=== PATIENT | female | born 1940 | race Caucasian/White ===

== ENCOUNTER 2017-04-20 07:57 | Inpatient (IN) | payer MEDICAID, OTHER ==
[~2017-04-20 07:57] MED LIST: ASPI325T PO; CARV3.125 PO; GABA300 PO; GLIM1 PO; LISI20 PO; METF500 PO; PERI8.6T PO; PRAV80 PO; WALKER ROLLING
--- NOTE | 2017-04-20 12:34 | RADRPT ---
EXAM DATE/TIME: 04/20/2017 09:13 [facility] COMPARISON: CHEST SINGLE AP, July 28, 2015, 7:31. INDICATIONS : Fall. MEDICAL HISTORY : None. SURGICAL HISTORY : None. ENCOUNTER: Initial ACUITY: 1 day PAIN SCORE: 7/10 LOCATION: Bilateral upper chest FINDINGS: A single view of the chest demonstrates chronic interstitial densities without evidence of mass, infi ltrate or effusion. The cardiomediastinal contours are unremarkable. Osseous structures are intact. Degenerative changes of the shoulders. CONCLUSION: Chronic interstitial densities. Benja Ramsey MD on April 20, 2017 at 9:23 Board Certified Radiologist. This report was verified electronically.
--- NOTE | 2017-04-20 12:34 | RADRPT ---
EXAM DATE/TIME: 04/20/2017 08:59 [facility] COMPARISON: CT BRAIN W/O CONTRAST, July 28, 2015, 8:09. INDICATIONS : Found on the ground.Headache. RADIATION DOSE: 56.35 CTDIvol (mGy) MEDICAL HISTORY : Hypertension. Cerebrovascular disease. Diabetes SURGICAL HISTORY : unknown ENCOUNTER: Initial ACUITY: 1 day PAIN SCALE: 4/10 LOCATION: cranial TECHNIQUE: Multiple contiguous axial images were obtained of the head. Using automated exposure control and adj ustment of the mA and/or kV according to patient size, radiation dose was kept as low as reasonably a chievable to obtain optimal diagnostic quality images. DICOM format image data is available electro nically for review and comparison. 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 The ventricles are normal for age. No evidence of mi dline shift, mass lesion, hemorrhage or acute infarction. No extra-axial fluid collections are seen. POSTERIOR FOSSA: The cerebellum is intact. The 4th ventricle is midline. The cerebellopontine angle is unremarkable. EXTRACRANIAL: The visualized portion of the orbits is intact. SKULL: The calvaria is intact. No evidence of skull fracture. CONCLUSION: 1. Remote infarcts. 2. No acute hemorrhage. Benja Ramsey MD on April 20, 2017 at 9:13 Board Certified Radiologist. This report was verified electronically.
--- NOTE | 2017-04-20 13:11 | RADRPT ---
EXAM DATE/TIME: 04/20/2017 10:36 [facility] COMPARISON: No previous studies available for comparison. INDICATIONS : Left hip pain, fell MEDICAL HISTORY : None. SURGICAL HISTORY : None. ENCOUNTER: Initial ACUITY: 1 day PAIN SCORE: 8/10 LOCATION: Left hip FINDINGS: Examination of the left hip was performed with AP Pelvis. Complete intertrochanteric fracture with mi ld displacement. Old fracture proximal femur. The acetabulum is grossly intact. 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 CONCLUSION: Mildly displaced intertrochanteric fracture. Benja Ramsey MD on April 20, 2017 at 10:58 Board Certified Radiologist. This report was verified electronically.
[2017-04-20 13:13] LABS: INTERNATIONAL NORMALIZED RATIO 1.1 RATIO; PROTHROMBIN TIME - PATIENT 11.9 SEC (9.8-11.6)
[2017-04-20 13:16] LABS: AUTOMATED NEUTROPHIL # 12.2 TH/MM3 (1.8-7.7); BASOPHIL % 0.3 % (0.0-2.0); HEMATOCRIT 36.6 % (35.0-46.0); HEMOGLOBIN 12.2 GM/DL (11.6-15.3); LYMPH % 9.4 % (9.0-44.0); LYMPHOCYTE # 1.4 TH/MM3 (1.0-4.8); MEAN CELL VOLUME 96.1 FL (80.0-100.0); MEAN CORPUSCULAR HEMOGLOBIN 32.1 PG (27.0-34.0); MEAN CORPUSCULAR HGB CONC 33.4 % (32.0-36.0); MEAN PLATELET VOLUME 9.8 FL (7.0-11.0); MONO % 6.2 % (0.0-8.0); MONOCYTE # 0.9 TH/MM3 (0-0.9); NEUT % 84.1 % (16.0-70.0); PLATELET COUNT 220 TH/MM3 (150-450); RED BLOOD COUNT 3.81 MIL/MM3 (4.00-5.30); WHITE BLOOD COUNT 14.5 TH/MM3 (4.0-11.0)
[2017-04-20 13:28] LABS: ALBUMIN 3.4 GM/DL (3.4-5.0); ALKALINE PHOSPHATASE 88 U/L (45-117); ALT (GPT) 21 U/L (10-53); AST (GOT) 18 U/L (15-37); BICARBONATE 19.2 MEQ/L (21.0-32.0); BLOOD UREA NITROGEN 27 MG/DL (7-18); CALCIUM 8.4 MG/DL (8.5-10.1); CHLORIDE 98 MEQ/L (98-107); CREATININE 1.03 MG/DL (0.50-1.00); GLOMERULAR FILTRATION RATE 52 ML/MIN (>89); SODIUM (NA) 130 MEQ/L (136-145); TOTAL BILIRUBIN ADULT 0.5 MG/DL (0.2-1.0); TOTAL PROTEIN 6.5 GM/DL (6.4-8.2); TROPONIN I 0.13 NG/ML (0.02-0.05)
[2017-04-20 13:29] LABS: GLUCOSE,RANDOM 559 MG/DL (74-106)
[2017-04-20] MEDS ORDERED: GLIM4TAB PO (13:38)
[2017-04-20] MEDS ORDERED: POTASSIUM CHLOR 20 MEQ PREMIX 100 ML ONE (13:50)
[2017-04-20 13:59] VITALS: BP 103/58; PULSE 77; RESP 16; O2SAT 100
--- NOTE | 2017-04-20 14:10 | HHI.HP ---
HPI Service Family Medicine Primary Care Physician Unknown Admission Diagnosis Diagnoses: Chief Complaint: fall International Travel<30 Days: No Contact w/Intl Traveler<30days: No History of Present Illness Patient is a 76-year-old female presents to the ED by EMS after she felt today. She only speaks Georgian, but is accompanied by daughter who translates. Daughter states that she found her mother on the floor this morning around 4 AM. States she was covered in feces and urine. Daughter states that she was confused and asking for lipstick. Daughter states that patient was doing fine yesterday. She does have spells of confusion, states she has found her outside naked with only a hat on. However, at baseline she is able to feed herself, bathe herself, walk around the house. She does have a history of falls however. Daughter states that she has been becoming more confused lately. Did have normal dinner last night. No recent illness or other symptoms. She states she is dizzy, otherwise, oriented today with some irrelevant speech. Denies any history of DKA in the past. Is not on any insulin. 6 glimepiride at home. Checks her blood sugars occasionally, does not record log. (Moisés Hanson MD, R2) Review of Systems ROS Limitations: Language Barrier Constitutional: COMPLAINS OF: Dizziness, DENIES: Fever, Weight loss, Chills Eyes: DENIES: Diplopia, Vision loss Ears, nose, mouth, throat: DENIES: Nasal discharge, Oral lesions Respiratory: DENIES: Cough, Wheezing, Shortness of breath Cardiovascular: DENIES: Chest pain, Syncope, Lower Extremity Edema Gastrointestinal: DENIES: Vomiting (Moisés Hanson MD, R2) Past Family Social History Past Medical History HTN DM CVA Past Surgical History Unknown Reported Medications Reported Meds & Active Scripts Active Reported Glimepiride 4 Mg Tab 4 Mg PO DAILY@1600 Take with breakfast or first main meal (Moisés Hanson MD, R2) Allergies: Coded Allergies: No Known Allergies (Unverified , 04/20/17) Active Ordered Medications Active Medications Acetaminophen (Tylenol) 650 mg Q6H PRN PO; Start 04/20/17 at 14:30 Dextrose (D50w (Vial) Inj) 50 ml Q10M PRN IV PUSH; Start 04/20/17 at 14:30 Dextrose/Sodium Chloride 1,000 ml @ 200 mls/hr Q5H IV; Start 04/20/17 at 14:30 Heparin Sodium (Porcine) (Heparin Inj) 5,000 units Q12HR SQ; Start 04/20/17 at 21:00 Insulin Human Regular (NovoLIN R INJ) 0.1 units/ Kg actual body weight BOLUS ONCE IV PUSH Last administered on 04/20/17 15:51; Admin Dose 100 UNITS; Start 04/20/17 at 14:30; Stop 04/20/17 at 14:31; Status DC Insulin Human Regular 100 units/ Sodium Chloride 100 ml @ 0 mls/hr TITRATE IV; Start 04/20/17 at 14:30 Miscellaneous Medication ([facility] Information) Mix all IV Medications in Nor... UNSCH .XX; Start 04/20/17 at 14:30 Ondansetron HCl (Zofran Inj) 4 mg Q6H PRN IV PUSH; Start 04/20/17 at 15:00 Potassium Chloride 100 ml @ 50 mls/hr Q2H PRN IV; Start 04/20/17 at 14:30 Potassium Chloride 100 ml @ 50 mls/hr Q2H PRN IV; Start 04/20/17 at 14:30 Potassium Chloride 100 ml @ 50 mls/hr Q2H PRN IV; Start 04/20/17 at 14:30 Potassium Chloride 100 ml @ 50 mls/hr Q2H PRN IV; Start 04/20/17 at 14:30 Potassium Chloride 100 ml @ 50 mls/hr Q2H PRN IV; Start 04/20/17 at 14:30 Potassium Chloride 100 ml @ 100 mls/hr Q1H PRN IV; Start 04/20/17 at 14:30 Potassium Chloride 100 ml @ 100 mls/hr Q1H PRN IV; Start 04/20/17 at 14:30 Potassium Chloride 100 ml @ 100 mls/hr Q1H PRN IV; Start 04/20/17 at 14:30 Potassium Chloride 100 ml @ As Directed STK-MED ONCE .ROUTE Last administered on 04/20/17 13:58; Admin Dose 50 MLS/HR; Start 04/20/17 at 13:50; Stop at 13:51; Status DC Sodium Bicarbonate (Sodium Bicarbonate 8.4% Inj) 50 meq STAT PRN IV; Start at 14:30 Sodium Bicarbonate (Sodium Bicarbonate 8.4% Inj) 100 meq STAT PRN IV; Start at 14:30 Sodium Chloride 1,000 ml @ 250 mls/hr Q4H IV; Start 04/20/17 at 14:30 Sodium Phosphate 15 mmol/Sodium Chloride 105 ml @ 25 mls/hr UNSCH PRN IV; Start 04/20/17 at 14:30 Family History History of heart disease in family Social History Never smoker No alcohol use Denies other drug use. Independent with dressing, bathing, eating; Occasional urinary incontinence (Moisés Hanson MD, R2) Physical Exam Vital Signs Vital Signs Date Time Temp Pulse Resp B/P (MAP) Pulse Ox O2 Delivery O2 Flow Rate FiO2 04/20/17 13:59 77 16 103/58 (73) 100 Nasal Cannula 2.00 Physical Exam GENERAL: This is a well-nourished, well-developed patient, in no apparent distress. SKIN: Various papules over chest and forte. HEAD: Atraumatic. Normocephalic. EYES: Pupils equal round and reactive. Extraocular motions intact. No scleral icterus. No injection or drainage. ENT: Nose without bleeding. Throat without erythema, tonsillar hypertrophy or exudate. Uvula midline. Airway patent. NECK: Trachea midline. No JVD or lymphadenopathy. CARDIOVASCULAR: Regular rate and rhythm without murmurs, gallops, or rubs. RESPIRATORY: Clear to auscultation. Breath sounds equal bilaterally. No wheezes , rales, or rhonchi. GASTROINTESTINAL: Abdomen soft, non-tender, nondistended. No hepato-splenomegaly , or palpable masses. No guarding. MUSCULOSKELETAL: Left hip deformity presents. Leg is shortened and externally rotated. Pulses intact. Sensation intact. NEUROLOGICAL: Awake and alert. Motor and sensory grossly within normal limits. Normal speech. Laboratory Laboratory Tests Test 04/20/17 08:33 04/20/17 10:10 White Blood Count 14.5 Red Blood Count 3.81 Hemoglobin 12.2 Hematocrit 36.6 Mean Corpuscular Volume 96.1 Mean Corpuscular Hemoglobin 32.1 Mean Corpuscular Hemoglobin Concent 33.4 Red Cell Distribution Width 13.0 Platelet Count 220 Mean Platelet Volume 9.8 Neutrophils (%) (Auto) 84.1 Lymphocytes (%) (Auto) 9.4 Monocytes (%) (Auto) 6.2 Eosinophils (%) (Auto) 0.0 Basophils (%) (Auto) 0.3 Neutrophils # (Auto) 12.2 Lymphocytes # (Auto) 1.4 Monocytes # (Auto) 0.9 Eosinophils # (Auto) 0.0 Basophils # (Auto) 0.0 CBC Comment DIFF FINAL Differential Comment Prothrombin Time 11.9 Prothromb Time International Ratio 1.1 Activated Partial Thromboplast Time 23.3 Blood Urea Nitrogen 27 Creatinine 1.03 Random Glucose 559 Total Protein 6.5 Albumin 3.4 Calcium Level 8.4 Alkaline Phosphatase 88 Aspartate Amino Transf (AST/SGOT) 18 Alanine Aminotransferase (ALT/SGPT) 21 Total Bilirubin 0.5 Sodium Level 130 Potassium Level 4.4 Chloride Level 98 Carbon Dioxide Level 19.2 Anion Gap 13 Estimat Glomerular Filtration Rate 52 Total Creatine Kinase 115 Troponin I 0.13 B-Hydroxybutyrate 3.34 Blood Gas Puncture Site IV Blood Gas Patient Temperature 98.6 Venous Blood pH 7.25 Venous Blood Partial Pressure CO2 53 Venous Blood Partial Pressure O2 22 Venous Blood HCO3 23 Venous Blood Oxygen Saturation 25 Venous Blood Oxygen Content 3.7 Venous Blood Base Excess -3.6 Oxygen Delivery Device ROOM AIR Blood Gas Inspired Oxygen 21 (Moisés Hanson MD, R2) Result Diagram: 04/20/1783204/20/17832 Caprini VTE Risk Assessment Caprini VTE Risk Assessment: Mod/High Risk (score >= 2) Caprini Risk Assessment Model Point Value = 1 Point Value = 2 Point Value = 3 Point Value = 5 Age 41-60 Minor surgery BMI > 25 kg/m2 Swollen legs Varicose veins or History of unexplained or recurrent spontaneous Oral contraceptives or hormone replacement Sepsis (< 1 month) Serious lung disease, including pneumonia (< 1 month) Abnormal pulmonary function Acute myocardial infarction Congestive heart failure (< 1 month) History of inflammatory bowel disease Medical patient at bed rest Age 61-74 Arthroscopic surgery Major open surgery (> 45 min) Laparoscopic surgery (> 45 min) Malignancy Confined to bed (> 72 hours) Immobilizing plaster cast Central venous access Age >= 75 History of VTE Family history of VTE Factor V Leiden Prothrombin [id number] Lupus anticoagulant Anticardiolipin antibodies Elevated serum homocysteine Heparin-induced thrombocytopenia Other congenital or acquired thrombophilia Stroke (< 1 month) Elective arthroplasty Hip, pelvis, or leg fracture Acute spinal cord injury (< 1 month) Prophylaxis Regimen Total Risk Factor Score Risk Level Prophylaxis Regimen 0-1 Low Early ambulation 2 Moderate Order ONE of the following: *Sequential Compression Device (SCD) *Heparin 5000 units SQ BID 3-4 Higher Order ONE of the following medications: *Heparin 5000 units SQ TID *Enoxaparin/Lovenox 40 mg SQ daily (WT < 150 kg, CrCl > 30 mL/min) *Enoxaparin/Lovenox 30 mg SQ daily (WT < 150 kg, CrCl > 10-29 mL/min) *Enoxaparin/Lovenox 30 mg SQ BID (WT < 150 kg, CrCl > 30 mL/min) AND/OR *Sequential Compression Device (SCD) 5 or more Highest Order ONE of the following medications: *Heparin 5000 units SQ TID (Preferred with Epidurals) *Enoxaparin/Lovenox 40 mg SQ daily (WT < 150 kg, CrCl > 30 mL/min) *Enoxaparin/Lovenox 30 mg SQ daily (WT < 150 kg, CrCl > 10-29 mL/min) *Enoxaparin/Lovenox 30 mg SQ BID (WT < 150 kg, CrCl > 30 mL/min) AND *Sequential Compression Device (SCD) (Moisés Hanson MD, R2) Assessment and Plan Assessment and Plan 76 y/o female with history of HTN, DM, CVA Code Status Full Discussed Condition With Dr. Braun (Moisés Hanson MD, R2) Attending Attestation THIS CASE WAS DISCUSSED WITH THE RESIDENT PHYSICIANS. I HAVE REVIEWED THE RECORD AND AGREE WITH THE ABOVE NOTE AND PLAN OF CARE WAS DISCUSSED. I HAVE AUTHORIZED THE ORDER FOR ADMISSION TO AN IN-PATIENT STATUS. (Pablo Simmons MD) Problem List: (1) DKA (diabetic ketoacidoses) ICD Codes: E13.10 - Other specified diabetes mellitus with ketoacidosis without coma Status: Acute Plan: Patient presents to the ED with glucose of 559. Beta hydroxybutyrate is elevated at 3.34. UA significant for glucose of 1000, 40 ketones. Sodium 130, potassium 4.4. Anion gap of 13. VBG shows pH of 7.25. Mild leukocytosis on exam up to 14.5. UA negative for infection. CXR negative. Hip fracture may be inciting event. Patient was given several boluses of normal saline in the ED, as well as started on insulin drip. -Admit to ICU -Continue insulin drip. -DKA protocol; will add IV glucose when sugars below 200. -Replace electrolytes as needed. -BMP every 6 hours. -Nothing by mouth -Once sugars normalize, gap closes, can tolerate PO: switch to SQ insulin -Regular accuchecks (2) Hip fracture ICD Codes: S72.009A - Fracture of unspecified part of neck of unspecified femur , initial encounter for closed fracture Status: Acute Plan: Patient found fallen on the ground. Hip deformity noticed on exam. Left leg shortened and externally rotated. Hips/pelvis x-ray shows complete intertrochanteric fracture with mild displacement. Old fracture of proximal femur. -Consult orthopedics-appreciate recs -Fluids as above -Tylenol, morphine PRN pain (3) Hypertension ICD Codes: I10 - Essential (primary) hypertension Status: Acute Plan: Blood pressure to normal limits on arrival. Daughter states the patient was on lisinopril in the past. Blood pressure trending in 100s/60s. -Continue fluids as above -Hold BP meds (4) Fluids, Electrolytes, and Nutrition Status: Acute Plan: Fluids: NS per DKA protocol Electrolyte: monitor, replace PRN Nutrition: NPO DVT ppx: Heparin q12H (Moisés Hanson MD, R2) Physician Certification 2 Midnight Certification Type: Admission for Inpatient Services Order for Inpatient Services The services are ordered in accordance with Medicare regulations or non- Medicare payer requirements, as applicable. In the case of services not specified as inpatient-only, they are appropriately provided as inpatient services in accordance with the 2-midnight benchmark. Estimated LOS (days): 3 days is the estimated time the patient will need to remain in the hospital, assuming treatment plan goals are met and no additional complications. Post-Hospital Plan: Home (Moisés Hanson MD, R2) Problem Qualifiers (1) DKA (diabetic ketoacidoses): Qualified Codes: E13.10 - Other specified diabetes mellitus with ketoacidosis without coma (2) Hip fracture: Qualified Codes: S72.002A - Fracture of unspecified part of neck of left femur , initial encounter for closed fracture (3) Hypertension: Qualified Codes: I10 - Essential (primary) hypertension Moisés Hanson MD, R2 Apr 20, 2017 14:10 Pablo Simmons MD Apr 21, 2017 15:02
--- NOTE | 2017-04-20 14:29 | PD ---
HPI Chief Complaint: Fall Time Seen by Provider: 13:43 Travel History International Travel<30 days: No Contact w/Intl Traveler<30days: No Traveled to known affect area: No History of Present Illness HPI Patient is a 76-year-old female brought in by EMS after she fell today. Per EMS she was found on the ground by the daughter. He is not known how she got there. EMS states she is covered in feces when they arrived. However, EMS does state that the rest the house seemed clean. Patient has history of diabetes, her sugar is found to be high by EMS. She is also found to have a deformed hip. Patient speaks Austrian and has history of dementia, she is unable to provide any history. [facility] Past Medical History Cancer: No Chemotherapy: No Cerebrovascular Accident: Yes Diabetes: Yes Diminished Hearing: No Immune Disorder: No Radiation Therapy: No Sickle Cell Disease: No : 1 Para: 1 Past Surgical History AICD: No Arteriovenous Shunt: No Insulin Pump: No Joint Replacement: No Pacemaker: No Social History Alcohol Use: No Tobacco Use: No Substance Use: No Allergies-Medications (Allergen,Severity, Reaction): Coded Allergies: No Known Allergies (Unverified , 04/20/17) Reported Meds & Prescriptions Reported Meds & Active Scripts Active Reported Glimepiride 4 Mg Tab 4 Mg PO DAILY@1600 Take with breakfast or first main meal Review of Systems ROS Limitations: Altered Mental Status Physical Exam Narrative GENERAL: Awake and alert, in no acute distress. SKIN: Focused skin assessment warm/dry. No open wounds. HEAD: Atraumatic. Normocephalic. EYES: Pupils equal and round. No scleral icterus. Extraocular movements intact. ENT: Mucous membranes pink and moist. NECK: Trachea midline. No JVD. CARDIOVASCULAR: Regular rate and rhythm. No murmur appreciated. RESPIRATORY: No accessory muscle use. Clear to auscultation. Breath sounds equal bilaterally. GASTROINTESTINAL: Abdomen soft, non-tender, nondistended. MUSCULOSKELETAL: Obvious deformity of the left hip. Left leg is shortened and rotated. Pedal pulses intact. NEUROLOGICAL: Awake and alert. No obvious cranial nerve deficits. Motor grossly within normal limits. Data Data Orders Orders Chest, Single Ap (04/20/17 08:40) Ct Brain W/O Iv Contrast(Rout) (04/20/17 08:40) Labs Laboratory Tests Test 04/20/17 08:33 8/20/17 10:10 White Blood Count 14.5 TH/MM3 Red Blood Count 3.81 MIL/MM3 Hemoglobin 12.2 GM/DL Hematocrit 36.6 % Mean Corpuscular Volume 96.1 FL Mean Corpuscular Hemoglobin 32.1 PG Mean Corpuscular Hemoglobin Concent 33.4 % Red Cell Distribution Width 13.0 % Platelet Count 220 TH/MM3 Mean Platelet Volume 9.8 FL Neutrophils (%) (Auto) 84.1 % Lymphocytes (%) (Auto) 9.4 % Monocytes (%) (Auto) 6.2 % Eosinophils (%) (Auto) 0.0 % Basophils (%) (Auto) 0.3 % Neutrophils # (Auto) 12.2 TH/MM3 Lymphocytes # (Auto) 1.4 TH/MM3 Monocytes # (Auto) 0.9 TH/MM3 Eosinophils # (Auto) 0.0 TH/MM3 Basophils # (Auto) 0.0 TH/MM3 CBC Comment DIFF FINAL Differential Comment Prothrombin Time 11.9 SEC Prothromb Time International Ratio 1.1 RATIO Activated Partial Thromboplast Time 23.3 SEC Blood Urea Nitrogen 27 MG/DL Creatinine 1.03 MG/DL Random Glucose 559 MG/DL Total Protein 6.5 GM/DL Albumin 3.4 GM/DL Calcium Level 8.4 MG/DL Alkaline Phosphatase 88 U/L Aspartate Amino Transf (AST/SGOT) 18 U/L Alanine Aminotransferase (ALT/SGPT) 21 U/L Total Bilirubin 0.5 MG/DL Sodium Level 130 MEQ/L Potassium Level 4.4 MEQ/L Chloride Level 98 MEQ/L Carbon Dioxide Level 19.2 MEQ/L Anion Gap 13 MEQ/L Estimat Glomerular Filtration Rate 52 ML/MIN Total Creatine Kinase 115 U/L Troponin I 0.13 NG/ML B-Hydroxybutyrate 3.34 MMOL/L Blood Gas Puncture Site IV Blood Gas Patient Temperature 98.6 Venous Blood pH 7.25 Venous Blood Partial Pressure CO2 53 mmHg Venous Blood Partial Pressure O2 22 mmHg Venous Blood HCO3 23 mmol/L Venous Blood Oxygen Saturation 25 % Venous Blood Oxygen Content 3.7 Vol % Venous Blood Base Excess -3.6 mmol/L Oxygen Delivery Device ROOM AIR Blood Gas Inspired Oxygen 21 % [facility] Medical Decision Making Medical Screen Exam Complete: Yes Emergency Medical Condition: Yes Medical Record Reviewed: Yes Interpretation(s) ECG shows normal sinus rhythm at 93, no ST elevation or depression, normal intervals. Differential Diagnosis DKA versus HHS versus hip fracture versus hip dislocation versus ICH Narrative Course Patient is a 76-year-old female who comes in after she was found on the ground. Exam shows an obvious deformity of the left hip. IV established and labs sent. Patient given IV fluids. Patient received 10 mg of morphine by EMS prior to arrival, and is currently not in any pain. Labs show a blood sugar over 500, beta hydroxybutyrate is positive. PH is 7.25. Liters of IV fluids. She was started on insulin drip per DKA protocol. She'll be admitted to the ICU for further management. X-ray of her hip does show a fracture. Dr. Bee of orthopedics was consulted. Critical Care Narrative Aggregate critical care time was 35 minutes. Time to perform other separately billable procedures was not included in the critical care time. My time did not include minutes spent treating any other patients simultaneously or on activities that did not directly contribute to the patient's treatment. The services I provided to this patient were to treat and/or prevent clinically significant deterioration that could result in: Serious illness or I provided critical care services requiring my management, as noted below: Chart data review, documentation time, medication orders and management, vital sign assessments/reviewing monitor data, ordering and reviewing lab tests, ordering and interpreting/reviewing x-rays and diagnostic studies, care of the patient and discussion of the patient with the admitting physicians. Diagnosis Primary Impression: DKA (diabetic ketoacidoses) Qualified Codes: E13.10 - Other specified diabetes mellitus with ketoacidosis without coma Additional Impression: Hip fracture Qualified Codes: S72.002A - Fracture of unspecified part of neck of left femur , initial encounter for closed fracture Admitting Information Admitting Physician Requests: Admit Estefany Griggs MD Apr 20, 2017 14:29
[2017-04-20] MEDS ORDERED: SODIUM BICARBONATE 8.4% 50 MEQ IV PRN (14:30)
[2017-04-20] MEDS ORDERED: DEXTROSE 50% IN WATER 50 ML VIAL(D50) IV PUSH PRN (14:30)
[2017-04-20] MEDS ORDERED: POTASSIUM CL 20 MEQ IV PREMIX 100 ML - PERIPHERAL - for K+ 3.5 to 4.4 IV PRN (14:30)
[2017-04-20] MEDS ORDERED: NS IV @ 250 MLS/HR IV SCH (14:30)
[2017-04-20] MEDS ORDERED: POTASSIUM CL 40 MEQ IV PREMIX 100 ML - CENTRAL LINE - SUBSEQUENT K+ < 3.5 IV PRN (14:30)
[2017-04-20] MEDS ORDERED: POTASSIUM CL 20 MEQ IV PREMIX 100 ML - CENTRAL LINE - for K+ 3.5 to 4.4 IV PRN (14:30)
[2017-04-20] MEDS ORDERED: POTASSIUM CL 40 MEQ IV PREMIX 100 ML - CENTRAL LINE - for K+ < 3.5 IV PRN (14:30)
[2017-04-20] MEDS ORDERED: POTASSIUM CL 20 MEQ IV PREMIX 100 ML - CENTRAL LINE - for K+ 4.5 to 5 IV PRN (14:30)
[2017-04-20] MEDS ORDERED: INSULIN HUMAN (NovoLIN) REGULAR Bolus IV PUSH ONE (14:30)
[2017-04-20] MEDS ORDERED: POTASSIUM CL 20 MEQ IV PREMIX 100 ML - PERIPHERAL LINE - for K+ < 3.5 IV PRN (14:30)
[2017-04-20] MEDS ORDERED: SODIUM PHOSPHATE 15 MMOL/NS 100 ML IV PRN ×2 (14:30)
[2017-04-20] MEDS ORDERED: SODIUM BICARBONATE 8.4% 100 MEQ IV PRN (14:30)
[2017-04-20] MEDS ORDERED: POTASSIUM CL 20 MEQ IV PREMIX 100 ML - PERIPHERAL - for K+ 4.5 to 5 IV PRN (14:30)
[2017-04-20] MEDS ORDERED: POTASSIUM CL 20 MEQ IV PREMIX 100 ML - PERIPHERAL - SUBSEQUENT K+ < 3.5 IV PRN (14:30)
[2017-04-20] MEDS ORDERED: INSULIN REGULAR 100 UNITS/NS 100 ML (DKA Protocol) IV SCH ×2 (14:30)
[2017-04-20] MEDS ORDERED: Mix all IV Medications in Normal Saline When Possible SCH (14:30)
[2017-04-20] MEDS ORDERED: D5 NS IV @ 200 MLS/HR - Start after Glucose less than 250 IV SCH (14:30)
[2017-04-20] MEDS ORDERED: ONDANSETRON HCL 4 MG/2 ML VIAL IV PUSH PRN (15:00)
[2017-04-20 15:03] LABS: URINE COLOR YELLOW (YELLW/STRAW)
[2017-04-20 15:04] LABS: GLUCOSE,URINE 1000 mg/dL (NEG); KETONE, URINE 40 mg/dL (NEG); PH, URINE 6.5 (5.0-8.5)
[2017-04-20 15:12] LABS: BILIRUBIN, URINE NEG (NEG); BLOOD, URINE SMALL (NEG); NITRITE,URINE NEG (NEG); URINE LEUKOCYTE ESTERASE NEGATIVE (NEG)
[2017-04-20 15:13] LABS: BACTERIA, URINE RARE /hpf
--- NOTE | 2017-04-20 16:10 | EKG ---
Date Performed: 04/20/2017 Time Performed: 08:10:50 PTAGE: 76 years EKG: Sinus rhythm NONSPECIFIC ST & T-WAVE ABNORMALITY Compared to previous tracing, there's improvement in the R force s anteriorly. There are no longer criteria findings of inferior wall Myocardial infarction. Previous tracing was suggestive of anterior wall Myocardial infarction of undetermined age, but these criteria are no longer met ABNORMAL ECG PREVIOUS TRACING : 07/28/2015 07.49 DOCTOR: Jl Louis Interpretating Date/Time 04/20/2017 16:09:59
[2017-04-20] MEDS ORDERED: NALOXONE HCL 0.4 MG/ML AMP IV PRN (17:15)
[2017-04-20] MEDS: MORPHINE SULFATE 4 MG/ML INJ IV PRN (17:41)
[2017-04-20 18:00] VITALS: PULSE 86
[2017-04-20 19:06] LABS: BICARBONATE 23.5 MEQ/L (21.0-32.0); CALCIUM 7.7 MG/DL (8.5-10.1); CREATININE 0.65 MG/DL (0.50-1.00); MAGNESIUM 1.9 MG/DL (1.5-2.5)
[2017-04-20 19:10] LABS: TROPONIN I 0.28 NG/ML (0.02-0.05)
[2017-04-20 20:00] VITALS: PULSE 74
[2017-04-20 20:18] VITALS: O2SAT 100
--- NOTE | 2017-04-20 20:27 | EKG ---
Date Performed: 04/20/2017 Time Performed: 17:24:34 PTAGE: 76 years EKG: Sinus rhythm ST/T-WAVE ABNORMALITY, CONSIDER LATERAL ISCHEMIA POSSIBLE PROLONGED QT INTERVAL ABNORMAL ECG PREVIOUS TRACING : 04/20/2017 08.10 No significant change from previous tracing noted. DOCTOR: Hamilton Bruner Interpretating Date/Time 04/20/2017 20:26:11
[2017-04-20] MEDS ORDERED: BISACODYL 10 MG SUPP RECTAL PRN (20:30)
[2017-04-20] MEDS ORDERED: MAGNESIUM HYDROXIDE SUSP 30 ML CUP PO PRN (20:30)
[2017-04-20] MEDS ORDERED: LACTULOSE SYRUP 20 GM/30 ML CUP PO PRN (20:30)
[2017-04-20] MEDS ORDERED: SENNOSIDES 8.6 MG TAB PO PRN (20:30)
[2017-04-20] MEDS: DOCUSATE SODIUM 50 MG/SENNA 8.6 MG TAB PO SCH (21:00)
[2017-04-20] MEDS: HEPARIN SODIUM - SQ 10,000 UNITS/ML VIAL SQ SCH (21:00)
--- NOTE | 2017-04-20 21:35 | EKG ---
Date Performed: 04/20/2017 Time Performed: 20:13:18 PTAGE: 76 years EKG: Sinus rhythm PROLONGED QT INTERVAL ABNORMAL ECG PREVIOUS TRACING : 04/20/2017 17.24 No significant change from previous tracing noted. DOCTOR: Hamilton Bruner Interpretating Date/Time 04/20/2017 21:34:27
[2017-04-20] MEDS ORDERED: GLUCAGON 1 MG/ML VIAL OTHER PRN (21:45)
[2017-04-20] MEDS ORDERED: DEXTROSE 50% IN WATER 50 ML VIAL(D50) IV PRN (21:45)
[2017-04-20 22:00] VITALS: PULSE 75
[2017-04-20 23:50] LABS: BICARBONATE 23.6 MEQ/L (21.0-32.0); CALCIUM 7.6 MG/DL (8.5-10.1); CREATININE 0.51 MG/DL (0.50-1.00); MAGNESIUM 1.9 MG/DL (1.5-2.5); PHOSPHORUS 1.9 MG/DL (2.5-4.9)
[2017-04-20 23:53] LABS: TROPONIN I 0.37 NG/ML (0.02-0.05)
[2017-04-21] VITALS (26 sets, daily range): BP systolic 113–139; BP diastolic 56–77; PULSE 74–137; RESP 10–28; TEMP 97.9–100; O2SAT 89–100
[2017-04-21 05:36] LABS: HEMATOCRIT 30.9 % (35.0-46.0); HEMOGLOBIN 10.2 GM/DL (11.6-15.3); MEAN CELL VOLUME 95.4 FL (80.0-100.0); MEAN CORPUSCULAR HEMOGLOBIN 31.4 PG (27.0-34.0); MEAN CORPUSCULAR HGB CONC 32.9 % (32.0-36.0); MEAN PLATELET VOLUME 8.5 FL (7.0-11.0); PLATELET COUNT 231 TH/MM3 (150-450); RED BLOOD COUNT 3.24 MIL/MM3 (4.00-5.30); RED CELL DISTRIBUTION WIDTH 13.2 % (11.6-17.2); WHITE BLOOD COUNT 11.3 TH/MM3 (4.0-11.0)
[2017-04-21] MEDS: MORPHINE SULFATE 4 MG/ML INJ IV PRN ×3 (06:04→21:59)
[2017-04-21 06:09] LABS: BICARBONATE 23.2 MEQ/L (21.0-32.0); CALCIUM 7.8 MG/DL (8.5-10.1); CREATININE 0.51 MG/DL (0.50-1.00); MAGNESIUM 1.9 MG/DL (1.5-2.5)
[2017-04-21 06:10] LABS: PHOSPHORUS 1.5 MG/DL (2.5-4.9)
[2017-04-21] MEDS: INSULIN ASPART SUPPLEMENTAL SCALE SQ SCH ×5 (06:11→21:00)
[2017-04-21] MEDS ORDERED: CALCIUM CARBONATE 1.25 GM (CA 500 MG) TAB PO ONE (07:00)
[2017-04-21] MEDS ORDERED: SODIUM PHOSPHATE INJ 15 MMOL in SODIUM CHLORIDE 0.9% INJ 150 ML IV ONE (07:00)
--- NOTE | 2017-04-21 07:17 | PD.ORT.PN ---
Subjective Subjective Remarks Patient seen and examined. Patient admitted for DKA left hip intertrochanteric fracture. Patient is currently awake. She does not speak fluent Pashto. Complains of left hip pain Objective Vitals Vital Signs Date Time Temp Pulse Resp B/P (MAP) Pulse Ox O2 Delivery O2 Flow Rate FiO2 04/21/17 06:09 22 04/21/17 02:00 80 04/21/17 00:00 74 04/20/17 22:00 75 04/20/17 20:18 100 Nasal Cannula 4.00 04/20/17 20:00 74 04/20/17 18:00 86 04/20/17 16:40 04/20/17 13:59 77 16 103/58 (73) 100 Nasal Cannula 2.00 Result Diagram: 04/21/17 0450 04/21/17 0450 Other Results Laboratory Tests Test 04/20/17 08:33 Prothromb Time International Ratio 1.1 RATIO Prothrombin Time 11.9 SEC (9.8-11.6) Imaging Last [address] 04/20/17 0840 Signed Impressions: Service Date/Time: Thursday, April 20, 2017 08:59 - CONCLUSION: 1. Remote infarcts. 2. No acute hemorrhage. Benja Ramsey MD Chest X-Ray 04/20/17 0840 Signed Impressions: Service Date/Time: Thursday, April 20, 2017 09:13 - CONCLUSION: Chronic interstitial densities. Benja Ramsey MD Objective Remarks Patient is in no acute distress. She is awake. No pain in bilateral arms or right leg. She does have significant pain with left hip motion. No pain around left knee or ankle. Assessment & Plan Assessment and Plan Continue medical management of diabetes Nothing by mouth Plan on surgery this morning if medically cleared for treatment of left hip fracture Irwin Cedeno MD Apr 21, 2017 07:17
--- NOTE | 2017-04-21 07:40 | MB ---
cc: MARANDA ALVAREZ DATE OF ADMISSION 04/20/2017 DATE OF CONSULTATION 04/21/2017 REASON FOR CONSULTATION Left hip intertrochanteric fracture. CONSULTING PHYSICIAN Dr. Pablo Simmons PAUL Huynh is a 76-year-old female who had a fall today. She speaks Russian but she has a daughter who can translate. Her daughter found her mother on the floor at approximately 04:00 a.m. The patient was confused. She does have a history of falls. She presented to the emergency room where she was found to have a left hip intertrochanteric fracture. She was also found to have an diabetic ketoacidosis. She is currently awake in the Intensive Care Unit. PAST MEDICAL HISTORY ILLNESSES 1. Hypertension. 2. Diabetes. 3. CVA. SURGERIES Unknown. MEDICATIONS Glimepiride. ALLERGIES No known drug allergies. SOCIAL HISTORY The patient denies alcohol, tobacco or drug use. She is relatively independent in her activities of the living. FAMILY HISTORY Positive for heart disease. REVIEW OF SYSTEMS Unobtainable. PHYSICAL EXAMINATION GENERAL: The patient is a thin, 76-year female in no acute distress. She is awake. VITAL SIGNS: Pulse 86, respirations 16, blood pressure 103/58, O2 sats 1%, FIO2 2 liters. HEAD: The patient is normocephalic. Pupils are equal. NECK: Soft, nontender. Trachea is midline. ABDOMEN: Soft, nontender, nondistended. EXTREMITIES: Examination of bilateral upper extremities reveals no pain with shoulder, elbow or wrist motion bilaterally. Sensation is intact in all fingers. Radial pulses palpable bilaterally. SKIN: Intact in both hands. EXTREMITIES: Examination of right leg reveals no pain with hip, knee or ankle motion. Skin is intact. Dorsalis pedis pulses palpable. Examination of the left leg reveals pain with any hip motion. He has no tenderness around the knee, tibia or ankle. Skin is intact. Dorsalis pedis pulses palpable. X-RAYS X-rays of the left hip were reviewed. X-rays reveal a displaced left hip intertrochanteric fracture. IMPRESSION 1. Diabetes 2. Hypertension 3. Left hip intertrochanteric fracture. PLAN The treatment options were discussed with the patient. I also attempted to contact the patient's daughter to help translate and obtain consent. At this point I would recommend left hip reduction and intramedullary nail fixation. The risks of surgery include bleeding, infection, injury to arteries, nerves, blood vessels, painful hardware as well as medical complications including blood clot, stroke, heart attack and . I will plan on surgery today if she is medically cleared. A mid-level provider in my office, nurse practitioner or PA, may see this patient on a follow-up basis and continue to implement the objective of this plan including: Starting or adjusting medications, injections of muscle, tendon, bursa or joints, cast application, orthotic or brace application, physical therapy, further radiographic studies including x-ray, MRI, CT, ultrasounds or bone scan, vascular studies, neurologic studies, or other specialist consultations, and proceeding with surgical management as appropriate. MD DENY Henyr/ROXANA /7:18 AM /7:29 AM
--- NOTE | 2017-04-21 08:13 | HHI.FPPN ---
Subjective Remarks FM Attending Note: Patient seen and examined. S: Chart and all resident physician notes reviewed. In summary this is a 76 year old female who was admitted with an admission diagnosis of Dka, L Hip Fracture. This patient speaks only [place] making communication difficult when her daughter is not present to translate. She also has a baseline dementia. According to the history the patient was found on the floor on the morning of admission approximately 4 AM. The patient was covered with urine and feces and confused but does have baseline confusion. The patient is relatively independent in her basic ADLs when she has her daughter to supervise. She does live with her daughter who enables her to meet her instrumental activities of daily living. This patient does have diabetes. On her evaluation in the emergency room she was found to have left hip fracture. This morning an attempt was made to talk with the patient using a computer-assisted interpreter and translator but this was of limited use due to her baseline dementia. She did not appear to know where she was or know the year. When admitted the patient did have signs of mild diabetic ketoacidosis which have resolved overnight with treatment. She has been seen by orthopedic surgery with the intent on having an open reduction and internal fixation of her hip fracture. Objective Vitals Vital Signs Date Time Temp Pulse Resp B/P (MAP) Pulse Ox O2 Delivery O2 Flow Rate FiO2 04/21/17 08:07 94 21 04/21/17 06:09 22 04/21/17 06:00 84 04/21/17 04:00 88 04/21/17 02:00 80 04/21/17 00:00 74 04/20/17 22:00 75 04/20/17 20:18 100 Nasal Cannula 4.00 04/20/17 20:00 74 04/20/17 18:00 86 04/20/17 16:40 04/20/17 13:59 77 16 103/58 (73) 100 Nasal Cannula 2.00 Result Diagram: 04/21/17 0450 04/21/17 0450 Other Results Item Value Date Time Magnesium Level 1.9 MG/DL 04/20/17 1827 Total Bilirubin 0.5 MG/DL 04/20/17 0833 Aspartate Amino Transf (AST/SGOT) 18 U/L 04/20/17 0833 Alanine Aminotransferase (ALT/SGPT) 21 U/L 04/20/17 0833 Alkaline Phosphatase 88 U/L 04/20/17 0833 Total Creatine Kinase 115 U/L 04/20/17 0833 Troponin I 0.13 NG/ML H 04/20/17 0833 Troponin I 0.28 NG/ML H # 04/20/17 1827 Troponin I 0.37 NG/ML H 04/20/17 2317 B-Hydroxybutyrate 3.34 MMOL/L H 04/20/17 0833 Venous Blood pH 7.25 *L 04/20/17 1010 Venous Blood Partial Pressure CO2 53 mmHg H 04/20/17 1010 Venous Blood Partial Pressure O2 22 mmHg *L 04/20/17 1010 Venous Blood HCO3 23 mmol/L 04/20/17 1010 Oxygen Delivery Device ROOM AIR 04/20/17 1010 Urine Specific [place] 1.031 04/20/17 08 Urine Glucose (UA) 1000 mg/dL H 04/20/17 0833 Urine Ketones 40 mg/dL H 04/20/17 0833 Urine Occult Blood SMALL H 04/20/17 0833 Urine Nitrite NEG 04/20/17 0833 Urine Urobilinogen LESS THAN 2.0 MG/DL 04/20/17 0833 Urine Leukocyte Esterase NEGATIVE 04/20/17 0833 Urine RBC 7 /hpf H 04/20/17 0833 Urine WBC 7 /hpf H 04/20/17 0833 Nasal Screen MRSA (PCR) MRSA NOT DETECTED 04/20/17 1625 Prothrombin Time 11.9 SEC H 04/20/17 0833 Activated Partial Thromboplast Time 23.3 SEC L 04/20/17 0833 Imaging Last [address] 04/20/17 0840 Signed Impressions: Service Date/Time: Thursday, April 20, 2017 08:59 - CONCLUSION: 1. Remote infarcts. 2. No acute hemorrhage. Benja Ramsey MD Chest X-Ray 04/20/17 0840 Signed Impressions: Service Date/Time: Thursday, April 20, 2017 09:13 - CONCLUSION: Chronic interstitial densities. Benja Ramsey MD Objective Remarks O. CONSTITUTIONAL/GEN: normally nourished, in NAD. EYES: conjunctiva normal, PERRLA, EOMI. ENT: Mouth and pharynx normal. NECK: thyroid midline, carotids symmetrical. LUNGS: clear A-P, respiratory effort is normal. CARDIOVASCULAR: RR without murmur or gallop. No significant edema. GI/ABD: soft without masses, without organomegaly. : moser catheter in place NEURO: No focal deficits. SKIN: color normal, no rashes noted. HEME/LYMPH: no bruising, petechia or significant adenopathy MUSC: back is normal in appearance. Extremities are normal in appearance. PSYCH/MENTAL STATUS: Alert and oriented x 1 (disoriented to time and place). A/P Assessment and Plan 76 y/o female with history of HTN, DM, CVA Problem List: (1) DKA (diabetic ketoacidoses) ICD Codes: E13.10 - Other specified diabetes mellitus with ketoacidosis without coma Status: Acute Plan: Patient presents to the ED with glucose of 559. Beta hydroxybutyrate is elevated at 3.34. UA significant for glucose of 1000, 40 ketones. Sodium 130, potassium 4.4. Anion gap of 13. VBG shows pH of 7.25. Mild leukocytosis on exam up to 14.5. UA negative for infection. CXR negative. Hip fracture may be inciting event. Patient was given several boluses of normal saline in the ED, as well as started on insulin drip. -Admit to ICU -Continue insulin drip. -DKA protocol; will add IV glucose when sugars below 200. -Replace electrolytes as needed. -BMP every 6 hours. -Nothing by mouth -Once sugars normalize, gap closes, can tolerate PO: switch to SQ insulin -Regular accuchecks 04/21/17 Overnight the acute findings of diabetic ketoacidosis have resolved. IV hydration will continue. The patient is nothing by mouth for planned surgery. We'll cover her insulin needs a sliding scale insulin. (2) Hip fracture ICD Codes: S72.009A - Fracture of unspecified part of neck of unspecified femur , initial encounter for closed fracture Status: Acute Plan: Patient found fallen on the ground. Hip deformity noticed on exam. Left leg shortened and externally rotated. Hips/pelvis x-ray shows complete intertrochanteric fracture with mild displacement. Old fracture of proximal femur. -Consult orthopedics-appreciate recs -Fluids as above -Tylenol, morphine PRN pain 04/21/17 Operative repair plan. (3) Hypertension ICD Codes: I10 - Essential (primary) hypertension Status: Acute Plan: Blood pressure to normal limits on arrival. Daughter states the patient was on lisinopril in the past. Blood pressure trending in 100s/60s. -Continue fluids as above -Hold BP meds (4) Fluids, Electrolytes, and Nutrition Status: Acute Plan: Fluids: NS per DKA protocol Electrolyte: monitor, replace PRN Nutrition: NPO DVT ppx: Heparin q12H Problem Qualifiers (1) DKA (diabetic ketoacidoses): Qualified Codes: E13.10 - Other specified diabetes mellitus with ketoacidosis without coma (2) Hip fracture: Qualified Codes: S72.002A - Fracture of unspecified part of neck of left femur , initial encounter for closed fracture (3) Hypertension: Qualified Codes: I10 - Essential (primary) hypertension Pablo Simmons MD Apr 21, 2017 08:13
[2017-04-21] MEDS: HEPARIN SODIUM - SQ 10,000 UNITS/ML VIAL SQ SCH (09:00)
[2017-04-21] MEDS: DOCUSATE SODIUM 50 MG/SENNA 8.6 MG TAB PO SCH ×2 (09:00→21:00)
[2017-04-21] MEDS ORDERED: SODIUM CHLOR 0.9% 1000 ML INJ 1,000 ML IV SCH (09:03)
[2017-04-21] MEDS: SODIUM CHLOR 0.9% 1000 ML INJ 1,000 ML IV SCH ×2 (09:14→17:34)
--- NOTE | 2017-04-21 10:28 | OTSOAPIP ---
TIME SESSION COMPLETED: 1000 TREATMENT TIME: 0 MINS. CHART REVIEWED. INTERDISCIPLINARY COMMUNICATION: PATIENT WAS NOT AVAILABLE DUE TO HAVING HIP SURGERY. PLAN: WILL SEE PATIENT NEXT TREATMENT DAY Therapist: KASIA RECIO/Yandy Signature on file
[2017-04-21] MEDS ORDERED: ceFAZolin INJ 1,000 MG VIAL ONE (10:30)
[2017-04-21] MEDS ORDERED: GENTAMICIN SULFATE 80 MG/2 ML VIAL ONE (10:30)
[2017-04-21] MEDS ORDERED: VANCOMYCIN HCL 1000 MG VIAL ONE (10:40)
[2017-04-21] MEDS ORDERED: BUPIVACAINE/EPINEPHRINE 0.25% 50 ML VIAL ONE (11:39)
[2017-04-21] MEDS ORDERED: diphenhydrAMINE HCL 25 MG CAP PO PRN (11:45)
[2017-04-21] MEDS ORDERED: SODIUM CHLORIDE 0.9% FLUSH 5 ML FLUSH IVF PRN (11:45)
--- NOTE | 2017-04-21 11:46 | PD.OP ---
cc: Irwin López MD Operative Report Date of Surgery: Apr 21, 2017 Preoperative Diagnosis: Displaced left hip intertrochanteric fracture Postoperative Diagnosis: Procedure: Left hip reduction and intramedullary nail fixation Anesthesia: Gen. Surgeon: Irwin López Firer Watertender(s): Bennett Teixeira PA-C The surgical procedure was assisted by my physician fws faculty assistant. My P.A. presence was necessary throughout this case for the manipulation and positioning of the surgical extremity. My P.A. was assisting me throughout the duration of this procedure. The skill set of a physician fws faculty assistant was medically necessary to complete this procedure. During the surgical case the pump house technician was working at the back table and the physician fws faculty assistant was directly assisting me. Operation and Findings: Implants used: [9]mm x [320]mm Synthes TFNA troch nail Plan of activity: Weight-bear as tolerated Patient was seen and evaluated preoperatively. The patient has significant hip pain from left proximal femur fracture. The risk and benefits of surgery were discussed in depth with the patient to include bleeding, infection, nonunion, malunion, need for hip replacement, painful hardware, as well as medical competitions including blood clots, stroke, heart attack, and . Informed consent was obtained. Operative site was marked. Patient was brought to the operating room and placed on fracture table. IV sedation was administered by anesthesiologist. Timeout procedure was performed. Hip and leg were prepped with alcohol followed by DuraPrep and draped in the usual sterile fashion. IV antibiotics were given prior to incision. Procedure began with reduction of fracture. Traction was applied. The leg was manipulated to achieve reduction. Excellent reduction was achieved. Fluoroscopy was used to confirm reduction. A three inch incision was made proximal to the trochanter. Subcutaneous tissue was dissected bluntly. Guidepin was placed at the tip of the trochanter and advanced into the femoral canal. Fluoroscopy confirmed appropriate guidepin placement. A opening reamer was placed over the guidepin. Initially a Synthes 11 mm short TFNA was opened. Patient had a deformity of the proximal femur. The straight nail could not be placed because of the curvature femur. At this point I converted to a long nail. A long ball tipped guide pin was now placed down the femoral canal into the center of the distal femur. The nail length was now measured. Fluoroscopy confirmed appropriate guidepin placement. Flexible reamers were now passed over the guidepin to ream the intramedullary canal. The Synthes TFNA nail was attached to the insertion handle. Nail was now placed over the guidepin into the femoral canal. Fluoroscopy confirmed appropriate nail placement. A second incision was made over the lateral thigh. Cannulas were placed through the insertion handle down to the femur. Guidepin was now placed through the femoral nail into the center of the femoral head. Fluoroscopy confirmed appropriate guidepin placement. Screw length was measured. Cannulated drill was placed over the guidepin. Appropriate length lag screw was now placed. Traction was released and compression was applied. The set screw was now tightened in dynamic mode. Next, using perfect [place] technique two distal interlocking screws were placed. Screw holes were predrilled and screw lengths were measured. Final fluoroscopy revealed well aligned fracture with well-placed hardware. Incision was closed with 3-0 Vicryl and ginger. Sterile dressings were applied. Patient was awakened and transferred to recovery room. Irwin López MD Apr 21, 2017 11:46
[2017-04-21] MEDS ORDERED: ONDANSETRON HCL 4 MG/2 ML VIAL IV PUSH ONE (12:12)
[2017-04-21] MEDS ORDERED: ePHEDrine/NS 25 MG/5 ML SYRINGE IV ONE (12:12)
[2017-04-21] MEDS ORDERED: PROPOFOL 200 MG/20 ML AMP IV ONE (12:12)
[2017-04-21] MEDS ORDERED: NEOSTIGMINE 3 MG/3 ML SYR IV ONE (12:12)
[2017-04-21] MEDS ORDERED: PHENYLEPH/NS 1000 MCG/10 ML SYR IV ONE (12:12)
[2017-04-21] MEDS ORDERED: MIDAZOLAM HCL 2 MG/2 ML VIAL ONE (12:15)
[2017-04-21] MEDS ORDERED: fentaNYL CITRATE 250 MCG/5 ML AMP ONE (12:16)
[2017-04-21] MEDS ORDERED: *morphine SULFATE 8 MG/ML PERIprocedure ONLY ONE (12:36)
[2017-04-21] MEDS ORDERED: DO NOT ADM ANY ANTICOAGULANT DRUGS PRN (13:00)
[2017-04-21] MEDS: CALCIUM/VITAMIN D 250 MG/125 U TAB PO SCH ×2 (13:00→17:34)
[2017-04-21] MEDS ORDERED: ERGOCALCIFEROL (VIT D2) 50,000 UNIT CAP PO ONE (13:00)
--- NOTE | 2017-04-21 15:53 | RADRPT ---
EXAM DATE/TIME: 04/21/2017 11:36 [facility] COMPARISON: No previous studies available for comparison. INDICATIONS : Left hip trochanteric nail. OR. MEDICAL HISTORY : Hypertension. Cerebrovascular disease. Diabetes. SURGICAL HISTORY : None. ENCOUNTER: Initial ACUITY: 1 day PAIN SCORE: Non-responsive. LOCATION: Left hip CONCLUSION: Fluoroscopic images during placement of intramedullary siomara left femur. Benja Ramsey MD on April 21, 2017 at 15:51 Board Certified Radiologist. This report was verified electronically.
[2017-04-21] MEDS: SODIUM CHLORIDE 0.9% FLUSH 5 ML FLUSH IVF SCH (21:58)
[2017-04-22] VITALS (22 sets, daily range): BP systolic 109–149; BP diastolic 58–74; PULSE 89–101; RESP 16–35; TEMP 98.1–101.3; O2SAT 89–97
[2017-04-22] MEDS: SODIUM CHLOR 0.9% 1000 ML INJ 1,000 ML IV SCH ×2 (01:47→15:56)
[2017-04-22] MEDS: INSULIN ASPART SUPPLEMENTAL SCALE SQ SCH ×4 (06:23→21:00)
[2017-04-22] MEDS: SODIUM CHLORIDE 0.9% FLUSH 5 ML FLUSH IVF SCH ×2 (09:00→21:00)
[2017-04-22] MEDS: CALCIUM/VITAMIN D 250 MG/125 U TAB PO SCH ×3 (09:07→18:12)
[2017-04-22] MEDS: DOCUSATE SODIUM 50 MG/SENNA 8.6 MG TAB PO SCH ×2 (09:07→22:42)
[2017-04-22] MEDS: CHOLECALCIFEROL (VIT D3) 5000 UNIT CAP PO SCH (09:56)
--- NOTE | 2017-04-22 10:30 | HHI.FPPN ---
Subjective Remarks Saw and examined patient this morning. Patient was very distraught and tearful asking for water. Attempted to use a Occitan purchasing assistant. Medical Screener was unable to understand the patient, but understood that she was repeatedly asking for water. (Shandra Braun MD R1) Objective Vitals Vital Signs Date Time Temp Pulse Resp B/P (MAP) Pulse Ox O2 Delivery O2 Flow Rate FiO2 04/22/17 06:00 89 04/22/17 04:00 91 04/22/17 04:00 98.2 91 20 125/58 (80) 90 04/22/17 02:00 94 04/22/17 00:00 95 04/22/17 00:00 95 18 118/58 (78) 89 04/21/17 23:46 92 21 04/21/17 22:00 93 04/21/17 20:00 100.0 101 15 139/64 (89) 89 04/21/17 18:00 105 04/21/17 18:00 105 18 131/60 (83) 94 04/21/17 17:40 105 17 138/61 (86) 91 04/21/17 17:21 103 28 128/61 (83) 94 04/21/17 17:00 101 23 127/64 (85) 89 04/21/17 16:40 99 10 138/63 (88) 96 04/21/17 16:20 96 18 139/63 (88) 97 04/21/17 16:00 97.9 92 12 132/62 (85) 99 04/21/17 16:00 92 04/21/17 15:40 91 11 122/58 (79) 100 04/21/17 15:20 92 12 124/58 (80) 100 04/21/17 15:00 92 11 118/56 (76) 100 04/21/17 14:40 93 12 121/57 (78) 100 04/21/17 14:20 93 22 120/60 (80) 100 04/21/17 14:00 125 04/21/17 14:00 125 15 113/66 (82) 92 04/21/17 13:40 126 11 127/69 (88) 93 04/21/17 13:20 134 13 129/74 (92) 100 04/21/17 13:19 137 19 133/77 (95) 100 04/21/17 13:00 98.4 96 13 149/71 (97) 100 Nasal Cannula 2 04/21/17 12:45 95 13 146/68 (94) 100 Nasal Cannula 2 04/21/17 12:30 97 14 160/79 (106) 100 Nasal Cannula 2 04/21/17 12:15 96 13 152/73 (99) 100 Nasal Cannula 2 04/21/17 12:08 98.3 97 14 140/66 (90) 99 Nasal Cannula 2 I/O 04/21/17 04/21/17 04/21/17 04/22/17 04/22/17 04/22/17 07:00 15:00 23:00 07:00 15:00 23:00 Intake Total 950 ml 1024 ml 879 ml Output Total 785 ml 350 ml 475 ml Balance 165 ml 674 ml 404 ml Intake Oral 350 ml IV Total 50 ml 674 ml 879 ml Other 900 ml Output Urine Total 760 ml 350 ml 475 ml Estimated Blood Loss 25 ml # Bowel Movements 0 (Shandra Braun MD R1) Result Diagram: 04/21/17 04504/21/170 Objective Remarks O. CONSTITUTIONAL/GEN: normally nourished, laying in bed, in NAD. EYES: conjunctiva normal, EOMI. ENT: Mouth and pharynx normal. LUNGS: clear A-P, respiratory effort is normal. CARDIOVASCULAR: RR without murmur or gallop. No edema. GI/ABD: soft without masses, without organomegaly. : moser catheter in place NEURO: No focal deficits. SKIN: color normal, no rashes noted. HEME/LYMPH: no bruising, petechia or significant adenopathy MUSC: back is normal in appearance. Extremities are normal in appearance. Bandages on lateral left hip and thigh are clean dry and intact. PSYCH/MENTAL STATUS: Unable to answer orientation questions. (Shandra Braun MD R1) A/P Assessment and Plan 76 y/o female with history of HTN, DM, CVA Discharge Planning Pending ortho recs (Shandra Braun MD R1) Attending Attestation Patient seen and examined. Case reviewed and discussed with the resident team. Agree with plan of care as discussed with me and documented in the resident note. (Pablo Simmons MD) Problem List: (1) DKA (diabetic ketoacidoses) ICD Codes: E13.10 - Other specified diabetes mellitus with ketoacidosis without coma Status: Resolved Plan: Patient presents to the ED with glucose of 559. Beta hydroxybutyrate is elevated at 3.34. UA significant for glucose of 1000, 40 ketones. Sodium 130, potassium 4.4. Anion gap of 13. VBG shows pH of 7.25. Mild leukocytosis on exam up to 14.5. UA negative for infection. CXR negative. Hip fracture may be inciting event. Patient was given several boluses of normal saline in the ED, as well as started on insulin drip. DKA has resolved overnight. Anion gap has closed. - Transfer to floor from ICU - Diabetic diet: patient is refusing to eat - switched to SQ insulin sliding scale - Regular accuchecks - Continue IV hydration (2) Hip fracture ICD Codes: S72.009A - Fracture of unspecified part of neck of unspecified femur , initial encounter for closed fracture Status: Acute Plan: Patient found fallen on the ground. Hip deformity noticed on exam. Left leg shortened and externally rotated. Hips/pelvis x-ray shows complete intertrochanteric fracture with mild displacement. Old fracture of proximal femur. S/P left hip reduction ad intramedullary nail fixation on 04-21-17. -Consult orthopedics-appreciate recs -Fluids as above -Tylenol, morphine PRN pain (3) Hypertension ICD Codes: I10 - Essential (primary) hypertension Status: Acute Plan: Blood pressure to normal limits on arrival. Daughter states the patient was on lisinopril in the past. Blood pressure trending in 100s/60s. -Continue fluids as above -Hold BP meds (4) Fluids, Electrolytes, and Nutrition Status: Acute Plan: Fluids: NS per DKA protocol Electrolyte: monitor, replace PRN Nutrition: NPO DVT ppx: Heparin q12H (Shandra Braun MD R1) Problem Qualifiers (1) DKA (diabetic ketoacidoses): Qualified Codes: E13.10 - Other specified diabetes mellitus with ketoacidosis without coma (2) Hip fracture: Qualified Codes: S72.002A - Fracture of unspecified part of neck of left femur , initial encounter for closed fracture (3) Hypertension: Qualified Codes: I10 - Essential (primary) hypertension Shandra Braun MD R1 Apr 22, 2017 10:30 Pablo Simmons MD Apr 23, 2017 12:56
[2017-04-22 10:59] LABS: HEMATOCRIT 26.8 % (35.0-46.0); HEMOGLOBIN 9.1 GM/DL (11.6-15.3); MEAN CELL VOLUME 96.4 FL (80.0-100.0); MEAN CORPUSCULAR HEMOGLOBIN 32.8 PG (27.0-34.0); MEAN PLATELET VOLUME 9.1 FL (7.0-11.0); PLATELET COUNT 213 TH/MM3 (150-450); RED BLOOD COUNT 2.78 MIL/MM3 (4.00-5.30); RED CELL DISTRIBUTION WIDTH 13.2 % (11.6-17.2); WHITE BLOOD COUNT 10.5 TH/MM3 (4.0-11.0)
[2017-04-22 11:26] LABS: ALBUMIN 2.4 GM/DL (3.4-5.0); ALT (GPT) 13 U/L (10-53); AST (GOT) 12 U/L (15-37); BICARBONATE 19.8 MEQ/L (21.0-32.0); BLOOD UREA NITROGEN 21 MG/DL (7-18); CALCIUM 8.1 MG/DL (8.5-10.1); CHLORIDE 108 MEQ/L (98-107); CREATININE 0.53 MG/DL (0.50-1.00); GLOMERULAR FILTRATION RATE 113 ML/MIN (>89); GLUCOSE,RANDOM 249 MG/DL (74-106); SODIUM (NA) 141 MEQ/L (136-145)
[2017-04-22 11:28] LABS: ALKALINE PHOSPHATASE 63 U/L (45-117); TOTAL BILIRUBIN ADULT 0.4 MG/DL (0.2-1.0); TOTAL PROTEIN 5.5 GM/DL (6.4-8.2)
[2017-04-22] MEDS: ENOXAPARIN SODIUM 30 MG/0.3 ML SYRINGE SQ SCH (12:09)
[2017-04-22] MEDS: MORPHINE SULFATE 4 MG/ML INJ IV PRN (18:49)
[2017-04-22] MEDS: ACETAMINOPHEN 325 MG TAB PO PRN (22:58)
[2017-04-23] VITALS: BP 136/58; PULSE 96; RESP 26; TEMP 101.5; O2SAT 97
[2017-04-23] MEDS: SODIUM CHLOR 0.9% 1000 ML INJ 1,000 ML IV SCH ×2 (02:15→21:03)
[2017-04-23 04:05] VITALS: BP 125/66; PULSE 96; RESP 22; TEMP 98.5; O2SAT 99
[2017-04-23 06:05] LABS: HEMOGLOBIN 8.4 GM/DL (11.6-15.3); MEAN CELL VOLUME 96.4 FL (80.0-100.0); MEAN CORPUSCULAR HEMOGLOBIN 32.4 PG (27.0-34.0); MEAN CORPUSCULAR HGB CONC 33.6 % (32.0-36.0); MEAN PLATELET VOLUME 9.1 FL (7.0-11.0); PLATELET COUNT 211 TH/MM3 (150-450); RED BLOOD COUNT 2.59 MIL/MM3 (4.00-5.30); RED CELL DISTRIBUTION WIDTH 13.1 % (11.6-17.2); WHITE BLOOD COUNT 11.2 TH/MM3 (4.0-11.0)
[2017-04-23 06:32] LABS: ALBUMIN 2.3 GM/DL (3.4-5.0); AST (GOT) 12 U/L (15-37); BLOOD UREA NITROGEN 20 MG/DL (7-18); CALCIUM 8.2 MG/DL (8.5-10.1); CHLORIDE 109 MEQ/L (98-107); CREATININE 0.48 MG/DL (0.50-1.00); GLOMERULAR FILTRATION RATE 126 ML/MIN (>89); GLUCOSE,RANDOM 249 MG/DL (74-106); PHOSPHORUS 1.1 MG/DL (2.5-4.9); SODIUM (NA) 140 MEQ/L (136-145)
[2017-04-23 06:34] LABS: ALKALINE PHOSPHATASE 68 U/L (45-117); ALT (GPT) 10 U/L (10-53); TOTAL BILIRUBIN ADULT 0.5 MG/DL (0.2-1.0); TOTAL PROTEIN 5.6 GM/DL (6.4-8.2)
[2017-04-23] MEDS: INSULIN ASPART SUPPLEMENTAL SCALE SQ SCH ×4 (06:37→23:03)
--- NOTE | 2017-04-23 06:55 | PD.ORT.PN ---
Subjective Subjective Remarks POD 2 s/p IMN left hip doing well. confused and yelling on floor. stable. Objective Vitals Vital Signs Date Time Temp Pulse Resp B/P (MAP) Pulse Ox O2 Delivery O2 Flow Rate FiO2 04/23/17 04:05 98.5 96 22 125/66 (85) 99 04/23/17 00:00 101.5 96 26 136/58 (84) 97 04/23/17 00:00 96 04/22/17 22:00 101 04/22/17 21:03 94 21.00 04/22/17 20:00 101 04/22/17 20:00 101.3 101 22 131/60 (83) 94 04/22/17 19:00 97 24 127/62 (83) 92 04/22/17 18:00 100 04/22/17 18:00 97 22 142/66 (91) 95 04/22/17 17:00 93 19 138/61 (86) 94 04/22/17 16:01 99.0 101 35 109/74 (86) 95 04/22/17 16:00 99 04/22/17 15:00 97 19 145/62 (89) 91 04/22/17 14:00 97 04/22/17 14:00 100 19 131/63 (85) 95 04/22/17 13:00 96 19 127/62 (83) 97 04/22/17 12:00 98.7 101 22 121/60 (80) 96 04/22/17 12:00 101 04/22/17 11:01 99 25 131/60 (83) 94 04/22/17 10:44 92 04/22/17 10:00 93 04/22/17 10:00 93 20 139/65 (89) 93 04/22/17 09:01 99 18 149/66 (93) 95 04/22/17 08:00 92 04/22/17 08:00 98.1 92 19 127/60 (82) 94 04/22/17 07:00 90 16 133/63 (86) 92 I/O 04/22/17 04/22/17 04/22/17 04/23/17 04/23/17 04/23/17 07:00 15:00 23:00 07:00 15:00 23:00 Intake Total 879 ml 100 ml 350 ml 1899 ml Output Total 475 ml 1150 ml 500 ml Balance 404 ml 100 ml -800 ml 1399 ml Intake Oral 350 ml 240 ml IV Total 879 ml 100 ml 1659 ml Output Urine Total 475 ml 1150 ml 500 ml Result Diagram: 04/23/17 0510 04/23/17 0519 Imaging Last [address] 04/20/17 0840 Signed Impressions: Service Date/Time: Thursday, April 20, 2017 08:59 - CONCLUSION: 1. Remote infarcts. 2. No acute hemorrhage. Benja Ramsey MD Chest X-Ray 04/20/17839 Signed Impressions: Service Date/Time: Thursday, April 20, 2017 09:13 - CONCLUSION: Chronic interstitial densities. Benja Ramsey MD Objective Remarks LLE: dressings clean and dry. intact. NVI Assessment & Plan Assessment and Plan 1) Left Intertroch Hip Fx s/p IMN - POD 2 -WBAT -daily dressing changes -CM for rehab placement -ortho cleared for DC to rehab when arrangements made -f/u with [facility] or [facility] in 2 weeks Bennett Teixeira Apr 23, 2017 06:55
[2017-04-23] MEDS ORDERED: CALCTAB19 PO (06:57)
[2017-04-23] MEDS ORDERED: HYDR-3580 PO (06:57)
[2017-04-23] MEDS ORDERED: VITA500012 PO (06:57)
[2017-04-23] MEDS ORDERED: XARE10TA PO (06:57)
[2017-04-23] MEDS ORDERED: VITA2000 PO (06:57)
[2017-04-23] MEDS: CHOLECALCIFEROL (VIT D3) 5000 UNIT CAP PO SCH (07:50)
[2017-04-23] MEDS: CALCIUM/VITAMIN D 250 MG/125 U TAB PO SCH ×3 (07:50→18:00)
[2017-04-23] MEDS: DOCUSATE SODIUM 50 MG/SENNA 8.6 MG TAB PO SCH ×2 (07:51→22:55)
[2017-04-23] MEDS: SODIUM CHLORIDE 0.9% FLUSH 5 ML FLUSH IVF SCH ×2 (07:51→22:56)
[2017-04-23 08:00] VITALS: BP 142/66; PULSE 95; RESP 18; TEMP 99.9; O2SAT 94
--- NOTE | 2017-04-23 09:28 | RADRPT ---
EXAM DATE/TIME: 04/23/2017 08:43 [facility] COMPARISON: CHEST SINGLE AP, April 20, 2017, 9:13. INDICATIONS : Fever. MEDICAL HISTORY : Hypertension. Cerebrovascular disease. Diabetes. SURGICAL HISTORY : Left hip trochanteric nail. ENCOUNTER: Initial ACUITY: 1 day PAIN SCORE: Non-responsive. LOCATION: Bilateral chest FINDINGS: Single portable frontal view of the chest shows mild chronic interstitial changes within the bases. T his is stable. No effusions or intra-alveolar infiltrates. Heart is at the upper limits of normal in terms of size. Aorta is calcified. The degenerative thoracic spine. CONCLUSION: Mild chronic interstitial changes. No acute abnormality. Deangelo Wren Jr., MD on April 23, 2017 at 9:25 Board Certified Radiologist. This report was verified electronically.
[2017-04-23] MEDS: ENOXAPARIN SODIUM 30 MG/0.3 ML SYRINGE SQ SCH (11:01)
[2017-04-23] MEDS: ACETAMINOPHEN/HYDROcodone 325 MG/7.5 MG TAB PO PRN ×2 (11:01→22:56)
[2017-04-23 12:00] VITALS: BP 88/56; PULSE 98; RESP 18; TEMP 99.5; O2SAT 94
--- NOTE | 2017-04-23 14:19 | HHI.FPPN ---
Subjective Remarks Saw and examined patient this morning. Patient unable to answer questions. Fever of 101.5 overnight. (Shandra Braun MD R1) Objective Vitals Vital Signs Date Time Temp Pulse Resp B/P (MAP) Pulse Ox O2 Delivery O2 Flow Rate FiO2 04/23/17 12:00 99.5 98 18 88/56 (67) 94 04/23/17 08:00 99.9 95 18 142/66 (91) 94 04/23/17 04:05 98.5 96 22 125/66 (85) 99 04/23/17 00:00 101.5 96 26 136/58 (84) 97 04/23/17 00:00 96 04/22/17 22:00 101 04/22/17 21:03 94 21.00 04/22/17 20:00 101 04/22/17 20:00 101.3 101 22 131/60 (83) 94 04/22/17 19:00 97 24 127/62 (83) 92 04/22/17 18:00 100 04/22/17 18:00 97 22 142/66 (91) 95 04/22/17 17:00 93 19 138/61 (86) 94 04/22/17 16:01 99.0 101 35 109/74 (86) 95 04/22/17 16:00 99 04/22/17 15:00 97 19 145/62 (89) 91 I/O 04/22/17 04/22/17 04/22/17 04/23/17 04/23/17 04/23/17 06:59 14:59 22:59 06:59 14:59 22:59 Intake Total 879 ml 100 ml 350 ml 2139 ml Output Total 475 ml 1150 ml 500 ml Balance 404 ml 100 ml -800 ml 1639 ml Intake Oral 350 ml 480 ml IV Total 879 ml 100 ml 1659 ml Output Urine Total 475 ml 1150 ml 500 ml # Voids 0 # Bowel Movements 0 (Shandra Braun MD R1) Result Diagram: 04/23/17 0510 04/23/17 0519 Imaging Last 24 hours Impressions Chest X-Ray 04/23/17 0000 Signed Impressions: Service Date/Time: Sunday, April 23, 2017 08:43 - CONCLUSION: Mild chronic interstitial changes. No acute abnormality. Deangelo Wren Jr., MD Objective Remarks O. CONSTITUTIONAL/GEN: normally nourished, laying in bed, in NAD. EYES: conjunctiva normal, EOMI. ENT: Mouth and pharynx normal. LUNGS: clear A-P, respiratory effort is normal. CARDIOVASCULAR: RR without murmur or gallop. No edema. GI/ABD: soft without masses, without organomegaly. NEURO: No focal deficits. MUSC: back is normal in appearance. Extremities are normal in appearance. Bandages on lateral left hip and thigh are clean dry and intact. PSYCH/MENTAL STATUS: Unable to answer orientation questions. (Shandra Braun MD R1) A/P Assessment and Plan 76 y/o female with history of HTN, DM, CVA Discharge Planning Pending ortho recs (Shandra Braun MD R1) Attending Attestation Patient seen and examined. Case reviewed and discussed with the resident team. Agree with plan of care as discussed with me and documented in the resident note. (Pablo Simmons MD) Problem List: (1) Hip fracture ICD Codes: S72.009A - Fracture of unspecified part of neck of unspecified femur , initial encounter for closed fracture Status: Acute Plan: Patient found fallen on the ground. Hip deformity noticed on exam. Left leg shortened and externally rotated. Hips/pelvis x-ray shows complete intertrochanteric fracture with mild displacement. Old fracture of proximal femur. S/P left hip reduction ad intramedullary nail fixation on 04-21- POD 2 Postop fever to 101.5 last night. -Ordered chest x-ray- Mild chronic interstitial changes. No acute abnormality -Ordered urinalysis -Ordered blood cultures 2 -Consult orthopedics-appreciate recs * Cleared for discharge to rehabilitation * WBAT * Daily dressing changes * CM for rehabilitation placement * Follow-up in 2 weeks -Fluids as above -Tylenol, morphine PRN pain (2) DKA (diabetic ketoacidoses) ICD Codes: E13.10 - Other specified diabetes mellitus with ketoacidosis without coma Status: Resolved Plan: Patient presents to the ED with glucose of 559. Beta hydroxybutyrate is elevated at 3.34. UA significant for glucose of 1000, 40 ketones. Sodium 130, potassium 4.4. Anion gap of 13. VBG shows pH of 7.25. Mild leukocytosis on exam up to 14.5. UA negative for infection. CXR negative. Hip fracture may be inciting event. Patient was given several boluses of normal saline in the ED, as well as started on insulin drip. DKA has resolved overnight. Anion gap has closed. - Transfer to floor from ICU - Diabetic diet: patient is refusing to eat - switched to SQ insulin sliding scale - Regular accuchecks - Continue IV hydration (3) Hypertension ICD Codes: I10 - Essential (primary) hypertension Status: Acute Plan: Blood pressure to normal limits on arrival. Daughter states the patient was on lisinopril in the past. Blood pressure trending in 100s/60s. -Continue fluids as above -Hold BP meds (4) Fluids, Electrolytes, and Nutrition Status: Acute Plan: Fluids: NS per DKA protocol Electrolyte: monitor, replace PRN Nutrition: NPO DVT ppx: Heparin q12H (Shandra Braun MD R1) Problem Qualifiers (1) Hip fracture: Qualified Codes: S72.002A - Fracture of unspecified part of neck of left femur , initial encounter for closed fracture (2) DKA (diabetic ketoacidoses): Qualified Codes: E13.10 - Other specified diabetes mellitus with ketoacidosis without coma (3) Hypertension: Qualified Codes: I10 - Essential (primary) hypertension Shandra Braun MD R1 Apr 23, 2017 14:19 Pablo Simmons MD Apr 24, 2017 08:29
[2017-04-23 16:00] VITALS: BP_SYST 133; BP_SYST 145; BP_DIAS 72; BP_DIAS 79; PULSE 84; RESP 18; O2SAT 100; O2SAT 99
[2017-04-23 20:15] VITALS: BP 130/62; PULSE 92; RESP 16; TEMP 97.5; O2SAT 94
[2017-04-24] VITALS (12 sets, daily range): BP systolic 121–169; BP diastolic 59–75; PULSE 85–100; RESP 14–26; TEMP 97.9–100; O2SAT 91–99
[2017-04-24] MEDS: INSULIN ASPART SUPPLEMENTAL SCALE SQ SCH ×4 (06:43→22:19)
[2017-04-24 06:51] LABS: AUTOMATED NEUTROPHIL # 6.6 TH/MM3 (1.8-7.7); BASOPHIL % 0.4 % (0.0-2.0); EOSINOPHIL # 0.1 TH/MM3 (0-0.4); EOSINOPHIL % 1.2 % (0.0-4.0); HEMATOCRIT 22.9 % (35.0-46.0); HEMOGLOBIN 7.8 GM/DL (11.6-15.3); LYMPH % 5.7 % (9.0-44.0); LYMPHOCYTE # 0.4 TH/MM3 (1.0-4.8); MEAN CELL VOLUME 95.6 FL (80.0-100.0); MEAN CORPUSCULAR HEMOGLOBIN 32.4 PG (27.0-34.0); MEAN CORPUSCULAR HGB CONC 33.9 % (32.0-36.0); MEAN PLATELET VOLUME 9.6 FL (7.0-11.0); MONOCYTE # 0.5 TH/MM3 (0-0.9); NEUT % 85.7 % (16.0-70.0); PLATELET COUNT 213 TH/MM3 (150-450); RED CELL DISTRIBUTION WIDTH 12.9 % (11.6-17.2); WHITE BLOOD COUNT 7.7 TH/MM3 (4.0-11.0)
[2017-04-24] MEDS: SODIUM CHLOR 0.9% 1000 ML INJ 1,000 ML IV SCH ×2 (07:03→20:13)
[2017-04-24 07:05] LABS: AST (GOT) 20 U/L (15-37); BICARBONATE 20.2 MEQ/L (21.0-32.0); BLOOD UREA NITROGEN 27 MG/DL (7-18); CALCIUM 7.7 MG/DL (8.5-10.1); CHLORIDE 108 MEQ/L (98-107); CREATININE 0.49 MG/DL (0.50-1.00); GLOMERULAR FILTRATION RATE 123 ML/MIN (>89); GLUCOSE,RANDOM 221 MG/DL (74-106); SODIUM (NA) 140 MEQ/L (136-145)
[2017-04-24 07:09] LABS: ALKALINE PHOSPHATASE 93 U/L (45-117); ALT (GPT) 13 U/L (10-53); TOTAL BILIRUBIN ADULT 0.6 MG/DL (0.2-1.0); TOTAL PROTEIN 5.2 GM/DL (6.4-8.2)
[2017-04-24] MEDS ORDERED: CALCIUM CARBONATE 1.25 GM (CA 500 MG) TAB PO ONE (08:00)
--- NOTE | 2017-04-24 08:54 | RADRPT ---
EXAM DATE/TIME: 04/24/2017 08:42 [facility] COMPARISON: CT BRAIN W/O CONTRAST, April 20, 2017, 8:59. INDICATIONS : Stroke alert, right hemiparesis and left gaze RADIATION DOSE: 28.67 CTDIvol (mGy) MEDICAL HISTORY : Diabetes mellitus type 1. Hypertension. SURGICAL HISTORY : Hip surgery ENCOUNTER: Initial ACUITY: 1 day PAIN SCALE: Non-responsive LOCATION: cranial TECHNIQUE: Multiple contiguous axial images were obtained of the head. Using automated exposure control and adj ustment of the mA and/or kV according to patient size, radiation dose was kept as low as reasonably a chievable to obtain optimal diagnostic quality images. DICOM format image data is available electro nically for review and comparison. FINDINGS: The examination demonstrates a large left MCA infarct. There are edematous changes throughout the lef t MCA distribution. Of note, there is an old cortical infarct involving the watershed distribution on the left as well. The ventricles are normal in size and configuration. No extra-axial fluid collections are seen. There is no acute hemorrhage. No mass lesion is identified. The appearance of the posterior fossa is unremarkable. CONCLUSION: 1. There is a large left MCA infarct. There is edema diffusely throughout the left MCA distribution. This would suggest completed infarct. The case was discussed with Dr. Ross. We did not feel the benjamín ent was a candidate for intracranial intervention due to the completed appearance of the infarct. 2. There is an old, encephalomalacic infarct involving the watershed distribution posteriorly on the left. Arnie Middleton MD on April 24, 2017 at 8:49 Board Certified Radiologist. This report was verified electronically.
[2017-04-24] MEDS: CALCIUM/VITAMIN D 250 MG/125 U TAB PO SCH ×3 (09:00→18:00)
[2017-04-24] MEDS: CHOLECALCIFEROL (VIT D3) 5000 UNIT CAP PO SCH (09:00)
[2017-04-24] MEDS: DOCUSATE SODIUM 50 MG/SENNA 8.6 MG TAB PO SCH ×2 (09:00→20:49)
[2017-04-24] MEDS ORDERED: SODIUM CHLOR 0.9% 1000 ML INJ 1,000 ML IV SCH (09:15)
[2017-04-24] MEDS: ASPIRIN 300 MG SUPP RECTAL SCH (09:30)
[2017-04-24] MEDS ORDERED: DEXTROSE 50% IN WATER 50 ML VIAL(D50) IV PUSH PRN (09:30)
[2017-04-24] MEDS ORDERED: GLUCAGON 1 MG/ML VIAL OTHER PRN (09:30)
--- NOTE | 2017-04-24 10:50 | RADRPT ---
EXAM DATE/TIME: 04/24/2017 09:45 [facility] COMPARISON: No previous studies available for comparison. INDICATIONS : Cerebrovascular accident. MEDICAL HISTORY : Stroke. Hypertension. Diabetes. SURGICAL HISTORY : None. ENCOUNTER: Initial ACUITY: 1 day PAIN SCORE: 110 LOCATION: Bilateral neck PEAK SYSTOLIC VELOCITIES (cm/sec): ICA/CCA RATIO: Right: 1.7 Left: 1.2 ICA: Right: 115 Left: 89 CCA: Right: 66 Left: 74 ECA: Right: 68 Left: 85 VERTEBRAL: Right: 84 antegrade Left: 49 antegrade Elevated flow velocities and ICA/CCA ratios have been found to correlate with increased degrees of vessel stenosis, calculated as percentage of diameter relative to a normal segment of distal ICA/CCA FINDINGS: RIGHT CAROTID: No significant stenosis is visualized. The waveforms are within normal limits. LEFT CAROTID: No significant stenosis is visualized. The waveforms are within normal limits. VERTEBRAL ARTERIES: Antegrade flow is seen in both vertebral arteries. MISCELLANEOUS: None. CONCLUSION: 1. No hemodynamically significant carotid artery stenosis. Arnie Middleton MD on April 24, 2017 at 10:44 Board Certified Radiologist. This report was verified electronically.
--- NOTE | 2017-04-24 10:59 | MB ---
cc: SB REAGAN M.D. DATE OF CONSULTATION: 04/24/2017 REASON FOR CONSULTATION Stroke alert. HISTORY OF PRESENT ILLNESS Ms. Hein is a 76-year-old woman who 2 days ago had hip surgery for fractured hip. She was last seen normal this morning around 05:30. About an hour ago she was found to have severe right hemiparesis with left gaze and a stroke alert was therefore called. PAST MEDICAL HISTORY Her past medical history is remarkable for: 1. Diabetes. 2. History of previous stroke a couple of years ago in the left hemisphere. 3. Hypertension. ALLERGIES None known. MEDICATIONS 1. Lovenox 30 mg subcu daily. 2. Vitamin D3. 3. Os-Jayjay. 4. [place] for pain. 5. Dulcolax p.r.n. 6. Lactulose p.r.n. 7. Morphine sulfate as needed for pain. 8. Narcan p.r.n. 9. Tylenol p.r.n. NEUROLOGIC EXAMINATION VITAL SIGNS: Blood pressure 121/59, pulse is 88, respirations 18, temperature 98.3 degrees. Higher cortical function, she is lethargic but is arousable. She has global aphasia. She does not follow commands. There is no spontaneous speech output. She does not repeat. She has a right-sided neglect. On cranial nerve exam she has a left gaze conjugately. The pupils are 2 mm symmetric and reactive. She is unable to get the eyes past midline to the right. She has a right upper motor neuron VII palsy. On motor exam she has a dense right hemiplegia with basically 0/5 strength right arm and right leg with normal strength on the left, reflexes 1+ symmetric. She does have Babinski sign on the right but not on the left. IMAGING STUDIES CT of the brain shows large area of low attenuation involving the entire left MCA territory with edema suggesting a completed infarction. There is an old infarct as well in the watershed distribution posteriorly on the left-hand side. LABORATORY DATA White count 7700, hemoglobin 7.8, hematocrit 22.9%, platelet count is 213,000. Sodium is 140, potassium 3.6, chloride 108, CO2 is 20, BUN is 27, creatinine 0.49, GFR is 123, glucose 221, AST 20, ALT 13, PT 11.9, INR 1.1, APTT 23.3. EKG Normal sinus rhythm. IMPRESSION Large left MCA distribution stroke. Based on the CT findings the stroke appears to be a completed infarction with edema. I discussed the case with Dr. Gato Middleton who also feels it is a completed infarction and the patient therefore is not a candidate for intervention if she were to have a large vessel occlusion. Therefore, would recommend not doing a CT angiogram at the present time. She is not a candidate for IV TPA for the same reason and also because she is only 2 days postoperative. For now will start rectal aspirin, monitor her neurologic status. The prognosis with a stroke of this size is poor. Thank you for asking us to see the patient in consult. MD LUCIANO Jose/FLORI /9:21 AM /10:40 AM
[2017-04-24] MEDS: ENOXAPARIN SODIUM 30 MG/0.3 ML SYRINGE SQ SCH (11:00)
--- NOTE | 2017-04-24 11:01 | EKG ---
Date Performed: 04/24/2017 Time Performed: 09:41:22 PTAGE: 76 years EKG: Sinus rhythm NONSPECIFIC ST & T-WAVE ABNORMALITY ABNORMAL ECG PREVIOUS TRACING : 04/20/2017 20.13 Compared to previous tracing, prolonged QT interval is no l onger evident. DOCTOR: Hamilton Bruner Interpretating Date/Time 04/24/2017 11:00:41
[2017-04-24 11:25] LABS: TROPONIN I 0.19 NG/ML (0.02-0.05)
--- NOTE | 2017-04-24 12:15 | HHI.FPPN ---
Subjective Remarks Patient seen and examined this morning. At around 820 this morning, patient was very drowsy and unresponsive to sternal rub. Patient did not respond to questions. Discussed with the nurse, who stated this was new for her. This was also a change in mental status from yesterday. She was given [place] last night around 11 PM. Otherwise, nurse stated she had been sleeping since then. At this time, a Halicat was called and subsequently a stroke alert. (Moisés Hanson MD, R2) Objective Vitals Vital Signs Date Time Temp Pulse Resp B/P (MAP) Pulse Ox O2 Delivery O2 Flow Rate FiO2 04/24/17 09:39 98 21 04/24/17 08:00 98.3 88 18 121/59 (79) 91 04/24/17 00:15 98.4 85 18 121/61 (81) 93 04/23/17 20:15 97.5 92 16 130/62 (84) 94 04/23/17 16:00 84 18 145/72 (96) 99 I/O 04/23/17 04/23/17 04/23/17 04/24/17 04/24/17 04/24/17 07:00 15:00 23:00 07:00 15:00 23:00 Intake Total 2139 ml 240 ml 120 ml Output Total 500 ml Balance 1639 ml 240 ml 120 ml Intake Oral 480 ml 240 ml 120 ml IV Total 1659 ml Output Urine Total 500 ml # Voids 0 1 1 # Bowel Movements 0 0 0 (Moisés Hanson MD, R2) Result Diagram: 04/24/17 1041 04/24/17 0437 Objective Remarks CONSTITUTIONAL/GEN: normally nourished, laying in bed, in NAD. Drowsy, unresponsive to sternal rub LUNGS: coarse breath sounds CARDIOVASCULAR: RR without murmur or gallop. No edema. GI/ABD: soft without masses, without organomegaly. NEURO: Neglecting right side. RLE responds to some stimulation, RUE non- responsive to stimulation. MUSC: Bandages on lateral left hip and thigh are clean dry and intact. PSYCH/MENTAL STATUS: Unable to answer questions (Moisés Hanson MD, R2) A/P Assessment and Plan 76 y/o female with history of HTN, DM, CVA admitted for DKA and hip fracture. Now with large MCA stroke. Neuro and orbitread operator consulted. Working with palliative care for goals of care. Discharge Planning Pending discussion with palliative care and goals of care (Moisés Hanson MD, R2) Attending Attestation Patient seen and examined in the [facility] Case reviewed and discussed with the resident team Agree with plan of care as discussed with me and documented in the resident note. Appreciate CCM input and palliative care team Poor prognosis Will monitor (Angélica Malik MD) Problem List: (1) Acute CVA (cerebrovascular accident) ICD Codes: I63.9 - Cerebral infarction, unspecified Status: Acute Plan: Patient found minimally responsive with neurological deficits around 820 this morning. Unknown last time of normal. Clinical exam with right-sided neglect and weakness. Stat CT of head was ordered, which showed large left MCA infarct. Diffuse edema throughout the left MCA distribution, suggest completed infarct. This was discussed and was not a candidate for intracranial intervention. At this time, case was discussed with orbitread operator, and transferred to ICU. -Consult palliative care-appreciate recs -Case discussed with daughter in-person about goals of care, limited treatment options, and poor prognosis. -Neurology consulted-appreciate recs -Stroke workup -Echo, MRA carotids, rectal ASA -Consulted orbitread operator -Transferred to ICU (2) Hip fracture ICD Codes: S72.009A - Fracture of unspecified part of neck of unspecified femur , initial encounter for closed fracture Status: Acute Plan: Patient found fallen on the ground. Hip deformity noticed on exam. Left leg shortened and externally rotated. Hips/pelvis x-ray shows complete intertrochanteric fracture with mild displacement. Old fracture of proximal femur. S/P left hip reduction ad intramedullary nail fixation on 04-21-17 -Consult orthopedics-appreciate recs * Cleared for discharge to rehabilitation * WBAT * Daily dressing changes * CM for rehabilitation placement * Follow-up in 2 weeks -Fluids as above -Tylenol, morphine PRN pain (3) DKA (diabetic ketoacidoses) ICD Codes: E13.10 - Other specified diabetes mellitus with ketoacidosis without coma Status: Resolved Plan: Patient presents to the ED with glucose of 559. Beta hydroxybutyrate is elevated at 3.34. UA significant for glucose of 1000, 40 ketones. DKA resolved - Diabetic diet - SQ insulin sliding scale - Regular accuchecks - Continue IV hydration (4) Hypertension ICD Codes: I10 - Essential (primary) hypertension Status: Acute Plan: Blood pressure to normal limits on arrival. Daughter states the patient was on lisinopril in the past. -Continue fluids as above -Hold BP meds for permissive HTN (5) Fluids, Electrolytes, and Nutrition Status: Acute Plan: Fluids: NS Electrolyte: monitor, replace PRN Nutrition: NPO DVT ppx: Lovenox (Moisés Hanson MD, R2) Problem Qualifiers (1) Hip fracture: Qualified Codes: S72.002A - Fracture of unspecified part of neck of left femur , initial encounter for closed fracture (2) DKA (diabetic ketoacidoses): Qualified Codes: E13.10 - Other specified diabetes mellitus with ketoacidosis without coma (3) Hypertension: Qualified Codes: I10 - Essential (primary) hypertension Moisés Hanson MD, R2 Apr 24, 2017 12:15 Angélica Malik MD Apr 24, 2017 21:20
--- NOTE | 2017-04-24 12:34 | PD.CONS ---
Consult Service Palliative Care Consult Requested By Dr. Braun Primary Care Physician Unknown Reason for Consultation a. To assist with evaluation and management of symptoms including: Debility and pain. b. To assist medical decision maker(s) with: better understanding of current medical conditions; weighing benefits/burdens of medical treatment options; making medical treatment decisions. . HPI History of Present Illness Mrs. Hein date a 76-year-old female with a past medical history of hypertension , diabetes mellitus and CVA who presented to the ED on 04/20/17 via EMS for evaluation of after a fall. As per patient's daughter, she found her mother on the floor while confused. Upon ED admission, random glucose 559. Hip/pelvis x- ray revealing displaced intertrochanteric fracture. Head CT negative for acute process. Chest x-ray revealing chronic interstitial densities. Patient was admitted for further management. Orthopedic surgeon, Dr. López consulted on . Patient underwent Left hip reduction and intramedullary nail fixation on 04/21/17. No intra-surgical complications reported. Clinical course complicated by large left MCA infarct with diffuse edema throughout the left MCA distribution. As per CT report, case was discussed with , patient not a candidate for intracranial intervention due to completed appearance of infarct. Patient was transferred to ICU for further management. Palliative care has been consulted for further clarifications of goals of care. Patient seen in her room, she was resting in bed in no acute distress. Right sided hemiparesis, patient gazing to the left side. Not tracking, not following commands. Patient afebrile, stable hemodynamically. Tolerating room air with oxygen saturation in the mid to high 90s. Laboratory workup revealing WBC 9.0, Hgb 8.7, platelet count 176. BUN/creatinine 27/0.49, random glucose 221. Troponin 0.19. Neurology, Dr. Malave consulted. Patient not a candidate for intervention, not a candidate for IV TPA. As per neurology "the prognosis with a stroke of the size is poor". Reviewed past medical history. Patient with history of left pontine stroke with severe stenosis noted in both MCA in July 2015. She was seen by cardiology, diagnosed with ischemic cardiomyopathy based on her echocardiogram. Meeting with patient's daughter Trice Salvador. In attendance, Dr. Saleh, medical residents Dr. Childs and palliative care. Obtained past medical history and psychosocial history. Medical update provided. Discussed events leading to these hospitalization, clinical course to include clinical complications secondary to CVA and current medical management. Discussed that as per neurology, patient is not a candidate for any interventions. Discussed her poor prognosis for a meaningful neurological recovery. Discussed risks, benefits and limitations of CPR, intubation and mechanical ventilation given patient's acute CVA, advanced age and chronic ongoing comorbidities. Patient's daughter verbalized that her mother's quality of life is very important to her. As per daughter, patient has emphasized in the past not wanted to live with "tubes or bedbound". Patient with a history of stroke in 2014 with some neurological residual, although, patient was able to function independently with standby supervision. Patient has never been formally diagnosed with dementia, showing some signs as per daughter. Daughter further tells me that patient has been very unhappy and upset with her quality of life after first stroke. Patient daughters elected to change CODE STATUS to DNR/DNI given poor prognosis at and patient's known wishes. Discussed continuation of conservative management short of no code vs transition patient to comfort- directed care with hospice. Hospice philosophy and benefits introduced. Patient started very receptive to this. Follow-up telephone conversation with patient's daughter. She tells me that she had a chance to talk to patient's sister and additional family members in [facility]. Daughter reports that family in [facility] is not fully understanding patient's clinical condition and poor prognosis. Palliative care has offered to talk to family members who speak Telugu. CODE STATUS has been readdressed, daughter electing to continue with DNR/DNI. Daughter receptive to meeting with hospice for informative visit. Goal of treatment at this time is to allow time for communication with family in [facility], daughter likely to transition patient to hospice within the next 24 hours. Case discussed with Dr. Saleh, bedside RN Leah and hospice admissions nurse Chel. . Function/Cognitive Trajectory Patient with previous stroke in 2013, some residual neurological deficits. Patient mainly independent with ADLs, standby assistance/supervision. Progressively early forgetful/confused. Patient residing with daughter since 2013. Review of Systems ROS Limitations: Clinical Condition, Altered Mental Status Constitutional: COMPLAINS OF: Pain Eyes: DENIES: Eye inflammation Ears, nose, mouth, throat: DENIES: Hearing loss, Oral lesions, Running Nose Respiratory: DENIES: Cough, Shortness of breath Cardiovascular: DENIES: Chest pain, Dyspnea on Exertion Gastrointestinal: DENIES: Nausea, Vomiting Genitourinary: COMPLAINS OF: Urinary incontinence Musculoskeletal: DENIES: Back pain Integumentary: DENIES: Abnormal pigmentation Hematologic/Lymphatics: COMPLAINS OF: Bruising Immunologic/Allergic: DENIES: Eczema Neurologic: COMPLAINS OF: Abnormal gait, Poor Balance, DENIES: Tremor Psychiatric: COMPLAINS OF: Anxiety, Confusion, Agitation, DENIES: Hallucinations Other ROS: Limited ROS secondary to patient's clinical condition, minimally responsive. ROS obtained from medical records, patient's family and clinical observation. . Past Family Social History Coded Allergies: No Known Allergies (Unverified , 04/20/17) Past Medical History Hypertension Ischemic myopathy Diabetes mellitus History of CVA . Past Surgical History None. Reported Medications Calcium 600+D 200 (Calcium Carbonate-Vitamin D) 600-200 Mg-Unit Tab 1 Tab PO BID 30 Days Vitamin D3 (Cholecalciferol) 2,000 Unit Cap 2,000 Units PO DAILY Ergocalciferol 50,000 Unit Cap 50,000 Units PO Q7D Xarelto (Rivaroxaban) 10 Mg Tab 10 Mg PO DAILY 14 Days Hydrocodone-Acetaminophen 7.5-325 mg Tab 1 Tab PO Q4H PRN Glimepiride 4 Mg Tab 4 Mg PO DAILY@1600 . Current Medications Medications (Trade) Dose Ordered Sig/Zeferino Route Start Time Stop Time Status Last Admin (Tylenol) 650 mg Q6H PRN PO 04/20/17 14:30 04/22/17 22:58 (Zofran Inj) 4 mg Q6H PRN IV PUSH 04/20/17 15:00 (Morphine Inj) 1 mg Q3H PRN IV 04/20/17 17:15 04/22/17 18:49 (Morphine Inj) 2 mg Q3H PRN IV 04/20/17 17:15 04/21/17 21:59 (Narcan Inj) 0.4 mg UNSCH PRN IV 04/20/17 17:15 (Nalini-Colace) 1 tab BID PO 04/20/17 21:00 04/23/17 22:55 (Milk Of Magnesia Liq) 30 ml Q12H PRN PO 04/20/17 20:30 (Senokot) 17.2 mg Q12H PRN PO 04/20/17 20:30 04/23/17 22:55 (Dulcolax Supp) 10 mg DAILY PRN RECTAL 04/20/17 20:30 (Lactulose Liq) 30 ml DAILY PRN PO 04/20/17 20:30 (Lovenox Inj) 30 mg Q24H SQ 04/22/17 11:00 04/23/17 11:01 (Oscal-D 250-125) 250 mg TID PO 04/21/17 13:00 04/23/17 18:00 (Edgewood 7.5-325 Mg) 1 tab Q3H PRN PO 04/21/17 11:45 04/23/17 22:56 (Vitamin D3) 5,000 units DAILY PO 04/22/17 09:00 04/23/17 07:50 (NS Flush) 2 ml BID IV FLUSH 04/24/17 21:00 (NS Flush) 2 ml UNSCH PRN IV FLUSH 04/24/17 09:30 Sodium Chloride 1,000 ml @ 70 mls/hr [id number] IV 04/24/17 09:25 (Aspirin Supp) 300 mg DAILY RECTAL 04/24/17 09:30 (NovoLOG SUPPLEMENTAL SCALE) 1 ACHS SQ 04/24/17 11:00 (D50w (Vial) Inj) 50 ml UNSCH PRN IV PUSH 04/24/17 09:30 (Glucagon Inj) 1 mg UNSCH PRN OTHER 04/24/17 09:30 Family History Positive for cardiac disease. Patient has one daughter who is alive and well. . Substance Use Tobacco: None reported. Alcohol: None reported. Prescription med abuse: None reported. Illicits: None reported. . Psychosocial History Patient is originally from [place]. Residing in [place] up until 2013 she moved to [place] to live with only daughter Trice. Patient is a , in 2006. . Spiritual/Cultural Factors No voodoo affiliations. . Living Will: Never completed Health Care Surrogate: Never completed Durable Power of News Specialist: Never completed Health Care Surrogate(s): No advance directives completed. As per [place] statute, healthcare proxy decision making falls to patient's only daughter Norma Salvador. . Documented care wishes: No living will completed. . Family/friends goals: DNR/DNI. Patient's daughter considering transitioning patient to comfort- directed care with hospice given poor prognosis. . Ethical and Legal Issues Patient unable to participate in medical decision-making. Patient's only daughter is acting as healthcare proxy decision maker. . Physical Exam Vital Signs Date Time Temp Pulse Resp B/P (MAP) Pulse Ox O2 Delivery O2 Flow Rate FiO2 04/24/17 09:39 98 21 04/24/17 08:00 98.3 88 18 121/59 (79) 91 04/24/17 00:15 98.4 85 18 121/61 (81) 93 04/23/17 20:15 97.5 92 16 130/62 (84) 94 04/23/17 16:00 84 18 145/72 (96) 99 Exam CONSTITUTIONAL/GENERAL: This is an elderly female resting in bed in no acute distress. TUBES/LINES/DRAINS: PIV's. SKIN: No jaundice, rashes, or lesions. Ecchymoses on upper extremities. Skin temperature appropriate. Not diaphoretic. Surgical incision to left hip, covered in dressing. Dressing dry and intact. HEAD: Atraumatic. Normocephalic. EYES: Pupils equal and round and reactive. No scleral icterus. No injection or drainage. Left side gaze. ENT: Unable to evaluate hearing secondary to clinical condition. Nose without bleeding or purulent drainage. Moist oral mucosa. NECK: Trachea midline. Supple. CARDIOVASCULAR: Regular rate and rhythm. Peripheral pulses symmetric. RESPIRATORY/CHEST: Symmetric, unlabored respirations. Clear, diminished to auscultation. Breath sounds equal bilaterally. No wheezes, rales, or rhonchi. GASTROINTESTINAL: Abdomen soft, round, mildly distended. Bowel sounds present. GENITOURINARY: Without palpable bladder distension. MUSCULOSKELETAL: Extremities without clubbing, cyanosis, or edema. NEUROLOGICAL: Eyes open, not tracking. Left-sided case. Right-sided hemiparesis. Not following commands. PSYCHIATRIC: Unable to evaluate secondary to clinical condition. Appears calm. . Diagnostic Tests Laboratory Laboratory Tests Test 04/22/17 09:27 04/23/17 05:10 04/23/17 05:19 04/24/17 04:37 White Blood Count 10.5 TH/MM3 (4.0-11.0) 11.2 TH/MM3 (4.0-11.0) 7.7 TH/MM3 (4.0-11.0) Red Blood Count 2.78 MIL/MM3 (4.00-5.30) 2.59 MIL/MM3 (4.00-5.30) 2.40 MIL/MM3 (4.00-5.30) Hemoglobin 9.1 GM/DL (11.6-15.3) 8.4 GM/DL (11.6-15.3) 7.8 GM/DL (11.6-15.3) Hematocrit 26.8 % (35.0-46.0) 25.0 % (35.0-46.0) 22.9 % (35.0-46.0) Mean Corpuscular Volume 96.4 FL (80.0-100.0) 96.4 FL (80.0-100.0) 95.6 FL (80.0-100.0) Mean Corpuscular Hemoglobin 32.8 PG (27.0-34.0) 32.4 PG (27.0-34.0) 32.4 PG (27.0-34.0) Mean Corpuscular Hemoglobin Concent 34.0 % (32.0-36.0) 33.6 % (32.0-36.0) 33.9 % (32.0-36.0) Red Cell Distribution Width 13.2 % (11.6-17.2) 13.1 % (11.6-17.2) 12.9 % (11.6-17.2) Platelet Count 213 TH/MM3 (150-450) 211 TH/MM3 (150-450) 213 TH/MM3 (150-450) Mean Platelet Volume 9.1 FL (7.0-11.0) 9.1 FL (7.0-11.0) 9.6 FL (7.0-11.0) Blood Urea Nitrogen 21 MG/DL (7-18) 20 MG/DL (7-18) 27 MG/DL (7-18) Creatinine 0.53 MG/DL (0.50-1.00) 0.48 MG/DL (0.50-1.00) 0.49 MG/DL (0.50-1.00) Random Glucose 249 MG/DL (74-106) 249 MG/DL (74-106) 221 MG/DL (74-106) Total Protein 5.5 GM/DL (6.4-8.2) 5.6 GM/DL (6.4-8.2) 5.2 GM/DL (6.4-8.2) Albumin 2.4 GM/DL (3.4-5.0) 2.3 GM/DL (3.4-5.0) 2.0 GM/DL (3.4-5.0) Calcium Level 8.1 MG/DL (8.5-10.1) 8.2 MG/DL (8.5-10.1) 7.7 MG/DL (8.5-10.1) Alkaline Phosphatase 63 U/L (45-117) 68 U/L (45-117) 93 U/L (45-117) Aspartate Amino Transf (AST/SGOT) 12 U/L (15-37) 12 U/L (15-37) 20 U/L (15-37) Alanine Aminotransferase (ALT/SGPT) 13 U/L (10-53) 10 U/L (10-53) 13 U/L (10-53) Total Bilirubin 0.4 MG/DL (0.2-1.0) 0.5 MG/DL (0.2-1.0) 0.6 MG/DL (0.2-1.0) Sodium Level 141 MEQ/L (136-145) 140 MEQ/L (136-145) 140 MEQ/L (136-145) Potassium Level 3.8 MEQ/L (3.5-5.1) 4.2 MEQ/L (3.5-5.1) 3.6 MEQ/L (3.5-5.1) Chloride Level 108 MEQ/L (98-107) 109 MEQ/L (98-107) 108 MEQ/L (98-107) Carbon Dioxide Level 19.8 MEQ/L (21.0-32.0) 18.0 MEQ/L (21.0-32.0) 20.2 MEQ/L (21.0-32.0) Anion Gap 13 MEQ/L (5-15) 13 MEQ/L (5-15) 12 MEQ/L (5-15) Estimat Glomerular Filtration Rate 113 ML/MIN (>89) 126 ML/MIN (>89) 123 ML/MIN (>89) Phosphorus Level 1.1 MG/DL (2.5-4.9) Magnesium Level 2.0 MG/DL (1.5-2.5) Neutrophils (%) (Auto) 85.7 % (16.0-70.0) Lymphocytes (%) (Auto) 5.7 % (9.0-44.0) Monocytes (%) (Auto) 7.0 % (0.0-8.0) Eosinophils (%) (Auto) 1.2 % (0.0-4.0) Basophils (%) (Auto) 0.4 % (0.0-2.0) Neutrophils # (Auto) 6.6 TH/MM3 (1.8-7.7) Lymphocytes # (Auto) 0.4 TH/MM3 (1.0-4.8) Monocytes # (Auto) 0.5 TH/MM3 (0-0.9) Eosinophils # (Auto) 0.1 TH/MM3 (0-0.4) Basophils # (Auto) 0.0 TH/MM3 (0-0.2) CBC Comment DIFF FINAL Differential Comment Test 04/24/17 10:41 White Blood Count 9.0 TH/MM3 (4.0-11.0) Red Blood Count 2.69 MIL/MM3 (4.00-5.30) Hemoglobin 8.7 GM/DL (11.6-15.3) Hematocrit 25.8 % (35.0-46.0) Mean Corpuscular Volume 96.0 FL (80.0-100.0) Mean Corpuscular Hemoglobin 32.4 PG (27.0-34.0) Mean Corpuscular Hemoglobin Concent 33.7 % (32.0-36.0) Red Cell Distribution Width 12.8 % (11.6-17.2) Platelet Count 176 TH/MM3 (150-450) Mean Platelet Volume 9.6 FL (7.0-11.0) Neutrophils (%) (Auto) 80.0 % (16.0-70.0) Lymphocytes (%) (Auto) 10.9 % (9.0-44.0) Monocytes (%) (Auto) 8.0 % (0.0-8.0) Eosinophils (%) (Auto) 0.5 % (0.0-4.0) Basophils (%) (Auto) 0.6 % (0.0-2.0) Neutrophils # (Auto) 7.2 TH/MM3 (1.8-7.7) Lymphocytes # (Auto) 1.0 TH/MM3 (1.0-4.8) Monocytes # (Auto) 0.7 TH/MM3 (0-0.9) Eosinophils # (Auto) 0.0 TH/MM3 (0-0.4) Basophils # (Auto) 0.1 TH/MM3 (0-0.2) CBC Comment AUTO DIFF Total Creatine Kinase 90 U/L (26-192) Troponin I 0.19 NG/ML (0.02-0.05) Result Diagram: 04/24/17 1041 04/24/17 0437 Microbiology Microbiology Date/Time Source Procedure Growth Status 04/23/17 18:25 Blood Peripheral Aerobic Blood Culture - Preliminary NO GROWTH IN 1 DAY Resulted 04/23/17 18:25 Blood Peripheral Anaerobic Blood Culture - Final QNS - SEE AEROBE REPORT Resulted 04/23/17 18:20 Blood Peripheral Aerobic Blood Culture - Preliminary NO GROWTH IN 1 DAY Resulted 04/23/17 18:20 Blood Peripheral Anaerobic Blood Culture - Final QNS - SEE AEROBE REPORT Resulted Imaging Last Impressions Head CT 04/24/17 0000 Signed Impressions: Service Date/Time: April 08:42 - CONCLUSION: 1. There is a large left MCA infarct. There is edema diffusely throughout the left MCA distribution. This would suggest completed infarct. The case was discussed with Dr. Ross. We did not feel the patient was a candidate for intracranial intervention due to the completed appearance of the infarct. 2. There is an old , encephalomalacic infarct involving the watershed distribution posteriorly on the left. Arnie Middleton MD Carotid Artery Ultrasound 04/24/17 0000 Signed Impressions: Service Date/Time: April 09:45 - CONCLUSION: 1. No hemodynamically significant carotid artery stenosis. Arnie Middleton MD Chest X-Ray 04/23/17 0000 Signed Impressions: Service Date/Time: Sunday, April 23, 2017 08:43 - CONCLUSION: Mild chronic interstitial changes. No acute abnormality. Deangelo Wren Jr., MD Hip X-Ray 04/21/17 0000 Signed Impressions: Service Date/Time: Friday, April 21, 2017 11:36 - CONCLUSION: Fluoroscopic images during placement of intramedullary siomara left femur. Benja Ramsey MD Hip and Pelvis X-Ray 04/20/17 0946 Signed Impressions: Service Date/Time: Thursday, April 20, 2017 10:36 - CONCLUSION: Mildly displaced intertrochanteric fracture. Benja Ramsey MD Procedures * 04/21/17 -Left hip reduction and intramedullary nail fixation . Patient/Family Conference Present at Family Conference: Patient's daughter Trice. Family Conference Time (mins): 45 Family Conference Location: Consult Room Issues Discussed: * Palliative care role, purpose, approach * Additional medical, psychosocial, and spiritual history * Patients general health, functional status, and cognitive changes in the months leading up to the current hospitalization * Family understanding of the current medical problems -large left MCA infarct with edema * Family understanding of prognosis -poor prognosis for meaningful neurological recovery * Patients goals of care as best understood from advance directives and/or conversations and/or values * Current medical treatment options and benefits/burdens of those options * Likely scenarios comparing ongoing aggressive care with a transition to comfort measures only * Questions answered to the best of my ability * Palliative care contact information provided * Risks, benefits and limitations of CPR, intubation and mechanical ventilation given patient's acute stroke, advanced age, and chronic ongoing multiple comorbidities. * Hospice philosophy and benefits . Assessment and Plan Disease Oriented Problem List: (1) Acute CVA (cerebrovascular accident) (2) Hip fracture (3) Hypertension Symptom Scale: (1) Pain 0-10 Scale: Unable to quantify Comment: Secondary to recent surgical intervention (2) Debility 0-10 Scale: Unable to quantify Comment: Progressive. Pertinent Non-Medical Issues Psychosocial: Patient is originally from [facility]. Residing in [place] up until 2013 she moved to [place] to live with only daughter Trice. Patient is a , in 2006. Spiritual: No voodoo affiliation. Legal: No advance directives completed. Ethical issues impacting care: Patient unable to participating in medical decision-making secondary to clinical condition. Patient's daughter acting as healthcare proxy decision maker. . Important Contacts Daughter Norma Salvador . . Prognosis Mrs. Hein needs a 76-year-old female with a past medical history of hypertension, diabetes mellitus and prior CVA. Presented with left hip fracture , underwent ORIF. Clinical course complicated by large left MCA infarct with edema. Overall prognosis is poor for a meaningful neurological recovery or long -term survival given acute stroke, chronic ongoing comorbidities and advanced age. Patient appears hospice appropriate should family elects comfort-directed care. . Code Status: No Code Plan * CODE STATUS: DNR/DNI. Risks, benefits and limitations of CPR, intubation and mechanical ventilation has been discussed at length with daughter Norma. Daughter elected to change CODE STATUS from full code to DNR/DNI. * HEALTHCARE DECISION-MAKING: Patient unable to participate in medical decision- making secondary to clinical condition, minimally responsive post CVA. No advance directives completed, patient is . As per [place] statute, healthcare proxy decision-making falls to patient's only daughter Trice Salvador. * * GOALS OF CARE: DNR/DNI. Patient's daughter currently considering transitioning patient to comfort-directed care with hospice given patient's overall poor prognosis for a meaningful neurological recovery and known wishes. Daughter receptive to hospice informational meeting. Hospice philosophy and benefits have been introduced. Palliative care to continue to follow-up. * SYMPTOMS: = Pain, secondary to recent surgical intervention. Morphine IV available as needed. = Debility, progressive. Likely to continue to worsen given recent acute stroke. * Case discussed with Dr. Saleh, bedside RN Leah and hospice admissions nurse Chel. * Palliative care contact information has been provided to patient's daughter. * Ongoing emotional support and active listening provided. * Spiritual services following. Case discussed with environmental systems coordinator Joesph. * Palliative care will continue to follow-up for further clarifications of goals of care as patient's clinical condition continues to evolve. . Time Spent Total Floor Time (mins): 68 (Total time to include review of medical records, physical exam, goals of care discussion with patient's daughter, case discussion with Dr. Saleh, hospice admissions and bedside RN.) >50% Counseling/Coord of Care: Yes Thank you for the opportunity to participate in the care of Ms. Hein. Attestation To help prompt me to consider important information that might be impacting today's encounter and assessment, information from prior notes written by myself or my colleagues may have been "brought forward" into today's note. My signature on this note, however, is an attestation that I personally performed the exam, history, and/or decision-making noted today, and, unless otherwise indicated, the interactions with patient, family, and staff as well as the review of records all occurred today. I also attest that the listed assessment and stated plan reflect my best clinical judgment today based on the combination of historical information, prior notes, and today's exam/ interactions. When time spent is documented, it refers only to time spent today by the signer, or if indicated, combined time spent today by collaborating physician/nurse practitioner. Ashly Steven Apr 24, 2017 12:34
--- NOTE | 2017-04-24 14:12 | PD.CONS ---
[facility] Service Critical Care Medicine Consult Requested By Family medicine service Reason for Consult Altered mental status with left MCA territory ischemic stroke Primary Care Physician Unknown History of Present Illness 72-year-old female with a medical history significant for prior stroke, diabetes mellitus who was admitted with DKA and a hip fracture for which she underwent ORIF on 04/21. Patient developed altered mental status and was last noted to be okay around 5:30 AM. Subsequently there was a change in her mental status and she was noted to not be moving her right side for which stroke alert was called. Head CT showed large left MCA territory ischemic infarct with edema. Patient was transferred to the ICU by family medicine service in the critical care consult was requested. I evaluated the patient following arrival to the ICU. At that time she was laying in bed with her eyes open however not following commands and had a dense right hemiplegia. Patient was also evaluated by Dr. Malave from neurology. I further discussed current event with patient's daughter following her arrival to the ICU. Per the daughter patient has been living with her since her stroke in 2014 and does ambulate however has been having problems with memory and incontinence as well as gait difficulties. She does not feel patient would want intubation or tracheostomy or PEG tube. Past Family Social History Past Medical History HTN DM CVA Past Surgical History Unknown Reported Medications Reported Meds & Active Scripts Active Reported Glimepiride 4 Mg Tab 4 Mg PO DAILY@1600 Take with breakfast or first main meal Allergies: Coded Allergies: No Known Allergies (Unverified , 04/20/17) Administered Medications Medications (Trade) Dose Ordered Sig/Zeferino Route PRN Reason Start Time Stop Time Status Last Admin Dose Admin Acetaminophen (Tylenol) 650 mg Q6H PRN PO PAIN SCALE 1 TO 2 04/20/17 14:30 04/22/17 22:58 Morphine Sulfate (Morphine Inj) 1 mg Q3H PRN IV Pain 3-5; if unable to take PO 04/20/17 17:15 04/22/17 18:49 Morphine Sulfate (Morphine Inj) 2 mg Q3H PRN IV Pain 6-10;if unable to take PO 04/20/17 17:15 04/21/17 21:59 Senna/Docusate Sodium (Nalini-Colace) 1 tab BID PO 04/20/17 21:00 04/23/17 22:55 Sennosides (Senokot) 17.2 mg Q12H PRN PO MODERATE - SEVERE CONSTIPATION 04/20/17 20:30 04/23/17 22:55 Enoxaparin Sodium (Lovenox Inj) 30 mg Q24H SQ 04/22/17 11:00 04/23/17 11:01 Calcium/Vitamin D (Oscal-D 250-125) 250 mg TID PO 04/21/17 13:00 04/23/17 18:00 Acetaminophen/ Hydrocodone Bitart (Yaphank 7.5-325 Mg) 1 tab Q3H PRN PO pain 3<10 04/21/17 11:45 04/23/17 22:56 Cholecalciferol (Vitamin D3) 5,000 units DAILY PO 04/22/17 09:00 04/23/17 07:50 Review of Systems ROS Limitations: Altered Mental Status Physical Exam Vital Signs Vital Signs Date Time Temp Pulse Resp B/P (MAP) Pulse Ox O2 Delivery O2 Flow Rate FiO2 04/24/17 12:00 97.9 86 19 164/68 (100) 96 04/24/17 12:00 88 04/24/17 10:00 97.9 88 14 166/75 (105) 97 04/24/17 09:39 98 21 04/24/17 09:24 88 04/24/17 08:00 98.3 88 18 121/59 (79) 91 04/24/17 00:15 98.4 85 18 121/61 (81) 93 04/23/17 20:15 97.5 92 16 130/62 (84) 94 04/23/17 16:00 84 18 145/72 (96) 99 Physical Exam HEENT/Neuro: Pallor present. No icterus, tongue moist, ARLEEN, drowsy, easily arousable, has spontaneous eye opening. Not following commands. Nonverbal. Dense right hemiplegia noted. Neck: No JVD Chest/pulmonary: CTA bilaterally Cardiovascular: S1-S2 regular no gallop or murmur GI/abdomen: Soft, nontender, bowel sounds present Extremities: Warm bilaterally, no edema Laboratory Laboratory Tests Test 04/24/17 04:37 04/24/17 10:41 White Blood Count 7.7 Red Blood Count 2.40 Hemoglobin 7.8 Hematocrit 22.9 Mean Corpuscular Volume 95.6 Mean Corpuscular Hemoglobin 32.4 Mean Corpuscular Hemoglobin Concent 33.9 Red Cell Distribution Width 12.9 Platelet Count 213 Mean Platelet Volume 9.6 Neutrophils (%) (Auto) 85.7 Lymphocytes (%) (Auto) 5.7 Monocytes (%) (Auto) 7.0 Eosinophils (%) (Auto) 1.2 Basophils (%) (Auto) 0.4 Neutrophils # (Auto) 6.6 Lymphocytes # (Auto) 0.4 Monocytes # (Auto) 0.5 Eosinophils # (Auto) 0.1 Basophils # (Auto) 0.0 CBC Comment DIFF FINAL Differential Comment Blood Urea Nitrogen 27 Creatinine 0.49 Random Glucose 221 Total Protein 5.2 Albumin 2.0 Calcium Level 7.7 Alkaline Phosphatase 93 Aspartate Amino Transf (AST/SGOT) 20 Alanine Aminotransferase (ALT/SGPT) 13 Total Bilirubin 0.6 Sodium Level 140 Potassium Level 3.6 Chloride Level 108 Carbon Dioxide Level 20.2 Anion Gap 12 Estimat Glomerular Filtration Rate 123 Total Creatine Kinase 90 Troponin I 0.19 Date/Time Source Procedure Growth Status 04/23/17 18:25 Blood Peripheral Aerobic Blood Culture - Preliminary NO GROWTH IN 1 DAY Resulted 04/23/17 18:25 Blood Peripheral Anaerobic Blood Culture - Final QNS - SEE AEROBE REPORT Resulted Result Diagram: 04/24/17 0437 Imaging Last Impressions Head CT 04/24/17 0000 Signed Impressions: Service Date/Time: April 08:42 - CONCLUSION: 1. There is a large left MCA infarct. There is edema diffusely throughout the left MCA distribution. This would suggest completed infarct. The case was discussed with Dr. Ross. We did not feel the patient was a candidate for intracranial intervention due to the completed appearance of the infarct. 2. There is an old , encephalomalacic infarct involving the watershed distribution posteriorly on the left. Arnie Middleton MD Carotid Artery Ultrasound 04/24/17 0000 Signed Impressions: Service Date/Time: April 09:45 - CONCLUSION: 1. No hemodynamically significant carotid artery stenosis. Arnie Middleton MD Chest X-Ray 04/23/17 0000 Signed Impressions: Service Date/Time: Sunday, April 23, 2017 08:43 - CONCLUSION: Mild chronic interstitial changes. No acute abnormality. Deangelo Wren Jr., MD Hip X-Ray 04/21/17 0000 Signed Impressions: Service Date/Time: Friday, April 21, 2017 11:36 - CONCLUSION: Fluoroscopic images during placement of intramedullary siomara left femur. Benja Ramsey MD Hip and Pelvis X-Ray 04/20/17 0946 Signed Impressions: Service Date/Time: Thursday, April 20, 2017 10:36 - CONCLUSION: Mildly displaced intertrochanteric fracture. Benja Ramsey MD Assessment and Plan Assessment and Plan 76-year-old female with: Large left MCA territory ischemic infarct Encephalopathy Right hemiplegia Cerebral edema Left Hip fracture status post ORIF (04/21) Diabetes mellitus Prior stroke Plan: Neuro: Follow neuro status. Rectal aspirin per Dr. Malave from neurology who is evaluated the patient. Patient not a candidate for thrombolysis per discussion with neurology and radiology. If cerebral edema worsens patient would require endotracheal intubation and hyperventilation however patient's daughter does not want intubation at this time. Cardiovascular: IV hydration, watch for hypotension. Antihypertensives to keep systolic blood pressure less than to 20 mmHg Pulmonary: Supplemental O2. No intubation per discussion with patient's daughter. GI/liver: Nothing by mouth Endocrine: Insulin sliding scale Heme: Follow CBC and coags. ID: No antibiotics at this time Prophylaxis: SCDs. Hold Lovenox/heparin in view of large stroke with concern for hemorrhagic transformation. I have explained to patient started that there is a strong possibility that patient will need intubation possible tracheostomy and PEG tube placement and will be bedbound and may require detention placement in view of extent of her stroke. Discussed at length with patient's daughter as well as family medicine and palliative care team. Daughter deciding regarding CODE STATUS and further management however she is leaning towards no aggressive care and no intubation or CPR. Condition critical. Prognosis appears poor. Time spent on critical care excluding procedures 50 minutes Darrel Saleh MD Apr 24, 2017 14:11
--- NOTE | 2017-04-24 16:33 | ECHRPT ---
Indication: CVA/TIA CONCLUSIONS The left ventricular systolic function is low normal with an estimated ejection fraction in the rang e of 50- 55%. Mild concentric left ventricular hypertrophy. Normal left ventricular size. Mruge-dx-lqmo mitral valve regurgitation. BP: 121 / 59 HR: 88 Rhythm: Sinus MEASUREMENTS (Male / Female) Normal Values Technical Quality:Technically difficult study 2D ECHO LV Diastolic Diameter PLAX 3.9 cm 4.2 - 5.9 / 3.9 - 5.3 cm LV Systolic Diameter PLAX 3.1 cm IVS Diastolic Thickness 1.3 cm 0.6 - 1.0 / 0.6 - 0.9 cm LVPW Diastolic Thickness 1.3 cm 0.6 - 1.0 / 0.6 - 0.9 cm LV Relative Wall Thickness 0.7 LVOT Diameter 1.6 cm DOPPLER AV Peak Velocity 115.0 cm/s AV Peak Gradient 5.3 mmHg LVOT Peak Velocity 68.6 cm/s LVOT Peak Gradient 1.9 mmHg AV Area Cont Eq pk 1.2 cm MR Peak Velocity 454.7 cm/s MR Peak Gradient 82.7 mmHg LV E' Lateral Velocity 5.6 cm/s LV E' Septal Velocity 4.4 cm/s FINDINGS LEFT VENTRICLE The left ventricular systolic function is low normal with an estimated ejection fraction in the rang e of 50- 55%. Mild concentric left ventricular hypertrophy. Normal left ventricular size. RIGHT VENTRICLE Normal right ventricular size and systolic function. LEFT ATRIUM The left atrial size is normal. RIGHT ATRIUM The right atrial size is normal. ATRIAL SEPTUM Normal atrial septal thickness without atrial level shunting by limited color doppler interrogation. AORTA The aortic root and proximal ascending aorta are normal in size on limited imaging. MITRAL VALVE Kxtrz-cg-agsc mitral valve regurgitation. AORTIC VALVE Trileaflet aortic valve. No aortic valve stenosis or regurgitation. TRICUSPID VALVE Structurally normal tricuspid valve. No tricuspid valve stenosis or regurgitation. PULMONARY VALVE The pulmonary valve is not well visualized. VESSELS The inferior vena cava is normal in size. PERICARDIUM No pericardial effusion. Elliott Lee MD, FACC (Electronically Signed) Final Date:24 April 2017 16:32
--- NOTE | 2017-04-24 16:54 | HHI.HCPN ---
16:50. Follow-up bedside conversation with patient's daughter Trice Salvador. She reports that after further discussion with additional family members in [facility], family has decided to change code status to FULL code. Goal of therapy at this time is to allow time for clinical improvement and reevaluate patient's clinical condition within the next few days. Poor prognosis for meaningful neurological recovery has been previously discussed with daughter. Daughter verbalized understanding. Daughter receptive to ongoing goals of care discussion/palliative care follow-ups. Changing code status to FULL code. Case discussed with Dr. Saleh and bedside RN. . Ashly Steven Apr 24, 2017 16:54
[2017-04-24 17:12] LABS: HEMOGLOBIN A1C 12.9 % (4.3-6.0)
[2017-04-24] MEDS ORDERED: INSULIN ASPART SUPPLEMENTAL SCALE SQ SCH (18:15)
[2017-04-24] MEDS ORDERED: DEXTROSE 50% IN WATER 50 ML VIAL(D50) IV PRN (18:15)
[2017-04-24] MEDS ORDERED: GLUCAGON 1 MG/ML VIAL IM/SQ PRN (18:15)
[2017-04-24] MEDS: SODIUM CHLORIDE 0.9% FLUSH 5 ML FLUSH IV FLUSH SCH (20:49)
[2017-04-25] VITALS (13 sets, daily range): BP systolic 128–184; BP diastolic 63–88; PULSE 93–118; RESP 17–26; TEMP 98.2–101.8; O2SAT 96–98
[2017-04-25] MEDS: INSULIN ASPART SUPPLEMENTAL SCALE SQ SCH ×6 (01:53→23:46)
[2017-04-25] MEDS: ASPIRIN 300 MG SUPP RECTAL SCH (08:16)
[2017-04-25] MEDS: DOCUSATE SODIUM 50 MG/SENNA 8.6 MG TAB PO SCH ×2 (09:00→21:00)
[2017-04-25] MEDS: CALCIUM/VITAMIN D 250 MG/125 U TAB PO SCH ×3 (09:00→18:23)
[2017-04-25] MEDS: CHOLECALCIFEROL (VIT D3) 5000 UNIT CAP PO SCH (09:00)
[2017-04-25] MEDS: SODIUM CHLORIDE 0.9% FLUSH 5 ML FLUSH IV FLUSH SCH ×2 (09:00→21:00)
[2017-04-25] MEDS: SODIUM CHLOR 0.9% 1000 ML INJ 1,000 ML IV SCH ×2 (09:02→22:32)
--- NOTE | 2017-04-25 11:46 | HHI.FPPN ---
Subjective Remarks Saw and examined patient this morning. Nurse reports that she is still nonverbal with flaccid paralysis on her right. Her daughter changed her to full code overnight. Spoke with daughter at 1410. She said that she would like her for her mother to get an NG tube and then see how her status progresses through the weekend just in case she get better. She would like an sikhism physically impaired teacher to come see her. (Shandra Braun MD R1) Objective Vitals Vital Signs Date Time Temp Pulse Resp B/P (MAP) Pulse Ox O2 Delivery O2 Flow Rate FiO2 04/25/17 10:00 93 04/25/17 09:11 98 21 04/25/17 08:00 94 04/25/17 08:00 98.5 94 24 128/63 (84) 98 04/25/17 06:00 100 04/25/17 04:00 100.1 102 24 180/81 (114) 98 04/25/17 04:00 102 04/25/17 02:00 95 04/25/17 00:00 101 04/25/17 00:00 101.8 101 25 163/75 (104) 96 04/24/17 22:00 99 04/24/17 20:00 96 04/24/17 20:00 100.0 96 26 162/71 (101) 95 04/24/17 18:17 98 21 04/24/17 18:00 96 04/24/17 16:00 100 04/24/17 16:00 98.1 100 18 169/66 (100) 99 04/24/17 14:00 87 04/24/17 12:00 97.9 86 19 164/68 (100) 96 04/24/17 12:00 88 I/O 04/24/17 04/24/17 04/24/17 04/25/17 04/25/17 04/25/17 07:00 15:00 23:00 07:00 15:00 23:00 Intake Total 120 ml 0 ml 658 ml 245 ml Output Total 3 ml Balance 120 ml 0 ml 655 ml 245 ml Intake Oral 120 ml 0 ml IV Total 658 ml 245 ml Output Urine Total 3 ml # Voids 1 3 # Bowel Movements 0 0 0 (Shandra Braun MD R1) Result Diagram: 04/24/17 0437 Objective Remarks CONSTITUTIONAL/GEN: normally nourished, laying in bed, in NAD. Drowsy. LUNGS: coarse breath sounds CARDIOVASCULAR: RR without murmur or gallop. No edema. GI/ABD: soft without masses, without organomegaly. NEURO: Neglecting right side. RLE responds to some stimulation, RUE non- responsive to stimulation. Positive Babinski on right. Responds to wiggling her toes on her left foot and squeezing fingers with her left hand. Nonverbal MUSC: Bandages on lateral left hip and thigh are clean dry and intact. PSYCH/MENTAL STATUS: Unable to answer questions (Shandra Braun MD R1) A/P Assessment and Plan 76 y/o female with history of HTN, DM, CVA admitted for DKA and hip fracture. Now with large MCA stroke. Neuro and wheelchair van driver consulted. Working with palliative care for goals of care. Discharge Planning Pending discussion with palliative care and goals of care (Shandra Braun MD R1) Attending Attestation Patient seen and examined. Case reviewed and discussed Agree with plan of care as discussed with me and documented in the resident note. (Angélica Malik MD) Problem List: (1) Acute CVA (cerebrovascular accident) ICD Codes: I63.9 - Cerebral infarction, unspecified Status: Acute Plan: Patient found minimally responsive with neurological deficits around 0820 yesterday morning. Unknown last time of normal. Clinical exam with right- sided neglect and weakness. Stat CT of head was ordered, which showed large left MCA infarct. Diffuse edema throughout the left MCA distribution, suggest completed infarct. This was discussed and was not a candidate for intracranial intervention. At this time, case was discussed with wheelchair van driver, and transferred to ICU. Echocardiogram- The left ventricular systolic function is low normal with an estimated ejection fraction in the range of 50-55%. Mild concentric left ventricular hypertrophy. Normal left ventricular size. Rasfh-bo-jznl mitral valve regurgitation. Carotid Artery US- No hemodynamically significant carotid stenosis -Ordered Dobbhoff for tube feedings and medications -Glucerna 1.5 mLs for diet -Consulted Dietary -Consult palliative care-appreciate recs -Case discussed with daughter in-person about goals of care, limited treatment options, and poor prognosis. -Neurology consulted-appreciate recs -Does not recommend a CTA at this time -Rectal ASA -Consulted wheelchair van driver, appreciate recs -IV hydration, watch for hypotension. -Keep systolic to less than 220 -Repeat head CT on 04/26 -Supplemental O2 (2) Type 2 diabetes mellitus ICD Codes: E11.9 - Type 2 diabetes mellitus without complications Status: Chronic Plan: Admitted for DKA which has now resolved. Hemoglobin A1C is 12.9. Diabetes is uncontrolled. - Levemir 10 units HS added for better control - Glucerna for NG tube feedings - SQ insulin sliding scale - Regular accuchecks - Continue IV hydration (3) Hip fracture ICD Codes: S72.009A - Fracture of unspecified part of neck of unspecified femur , initial encounter for closed fracture Status: Acute Plan: Patient found fallen on the ground. Hip deformity noticed on exam. Left leg shortened and externally rotated. Hips/pelvis x-ray shows complete intertrochanteric fracture with mild displacement. Old fracture of proximal femur. S/P left hip reduction ad intramedullary nail fixation on 04-21-17 -Consult orthopedics-appreciate recs * Cleared for discharge to rehabilitation * WBAT * Daily dressing changes * CM for rehabilitation placement * Follow-up in 2 weeks -Fluids as above -Tylenol, morphine PRN pain (4) Hypertension ICD Codes: I10 - Essential (primary) hypertension Status: Acute Plan: Blood pressure to normal limits on arrival. Daughter states the patient was on lisinopril in the past. -Continue fluids as above -Hold BP meds for permissive HTN (5) Fluids, Electrolytes, and Nutrition Status: Acute Plan: Fluids: NS Electrolyte: monitor, replace PRN Nutrition: NG tube feedings, Glucerna DVT ppx: SCDs (Shandra Braun MD R1) Problem Qualifiers (1) Type 2 diabetes mellitus: Qualified Codes: E11.9 - Type 2 diabetes mellitus without complications (2) Hip fracture: Qualified Codes: S72.002A - Fracture of unspecified part of neck of left femur , initial encounter for closed fracture (3) Hypertension: Qualified Codes: I10 - Essential (primary) hypertension Shandra Braun MD R1 Apr 25, 2017 11:46 Angélica Malik MD Apr 28, 2017 16:43
[2017-04-25 12:29] LABS: HEMOGLOBIN 9.1 GM/DL (11.6-15.3); MEAN CORPUSCULAR HEMOGLOBIN 31.9 PG (27.0-34.0); MEAN CORPUSCULAR HGB CONC 33.5 % (32.0-36.0); MEAN PLATELET VOLUME 8.6 FL (7.0-11.0); PLATELET COUNT 246 TH/MM3 (150-450); RED BLOOD COUNT 2.85 MIL/MM3 (4.00-5.30); RED CELL DISTRIBUTION WIDTH 13.2 % (11.6-17.2); WHITE BLOOD COUNT 9.6 TH/MM3 (4.0-11.0)
[2017-04-25 12:43] LABS: INTERNATIONAL NORMALIZED RATIO 1.2 RATIO; PROTHROMBIN TIME - PATIENT 13.4 SEC (9.8-11.6)
[2017-04-25 12:50] LABS: ALBUMIN 2.4 GM/DL (3.4-5.0); AST (GOT) 19 U/L (15-37); BICARBONATE 15.8 MEQ/L (21.0-32.0); BLOOD UREA NITROGEN 30 MG/DL (7-18); CALCIUM 7.9 MG/DL (8.5-10.1); CHLORIDE 112 MEQ/L (98-107); CREATININE 0.52 MG/DL (0.50-1.00); GLOMERULAR FILTRATION RATE 115 ML/MIN (>89); GLUCOSE,RANDOM 221 MG/DL (74-106); SODIUM (NA) 141 MEQ/L (136-145)
[2017-04-25 12:52] LABS: ALT (GPT) 15 U/L (10-53)
[2017-04-25 12:54] LABS: ALKALINE PHOSPHATASE 104 U/L (45-117); TOTAL BILIRUBIN ADULT 0.7 MG/DL (0.2-1.0); TOTAL PROTEIN 6.1 GM/DL (6.4-8.2)
[2017-04-25] MEDS: MORPHINE SULFATE 4 MG/ML INJ IV PRN (12:54)
--- NOTE | 2017-04-25 14:13 | HHI.HCPN ---
Reason for visit a. To assist with evaluation and management of symptoms including: Debility and pain. b. To assist medical decision maker(s) with: better understanding of current medical conditions; weighing benefits/burdens of medical treatment options; making medical treatment decisions. . Subjective/Interval History Mrs. Hein date a 76-year-old female with a past medical history of hypertension , diabetes mellitus and CVA who presented to the ED on 04/20/17 via EMS for evaluation of after a fall. Upon ED admission, random glucose 559. Patient underwent Left hip reduction and intramedullary nail fixation on 04/21/17. Clinical course complicated by large left MCA infarct with diffuse edema throughout the left MCA distribution. Neurology, Dr. Malave consulted. Patient not a candidate for intervention, not a candidate for IV TPA. As per neurology "Christina 4Id the prognosis with a stroke of the size is poor". Palliative care consulted for further clarifications of goals of care given poor prognosis. Patient seen in ICU, resting in bed in moderate distress. Anxious, restless movement to left arm. Persistent right-sided hemiparesis. Intermittently opening eyes, not tracking. Not following commands and nonverbal. Running fever overnight, max temp 101.8. Hypertensive with SBP in the 160s to 180s. Laboratory workup today revealing WBC 9.6, Hgb 9.1, platelet count 246. BUN/ creatinine 30/0.52. Random glucose 221. Blood culture a 18/11/16 with no growth thus far. Coronary artery ultrasound 04/24/17 revealing no significant artery stenosis. Spoke with daughter Trice Salvador at bedside. Medical update provided. Discussed overall poor prognosis for meaningful neurological recovery. Daughter verbalized understanding, however, feels that family would like to allow the weekend to reevaluate patient's clinical/neurological condition. Patient's daughter inquiring regarding artificial nutrition, in agreement with NG tube feeding. Discussed that given patient's AMS/anxiety, she will likely required bilateral soft wrist restraints to prevent patient from pulling NG tube. Daughter in agreement with this. Discussed that NG tube feeding is temporarily and that if goals of treatment remain aggressive, PEG tube placement will be discussed. Daughter verbalized understanding. Readdressed CODE STATUS, daughter electing to continue full CODE at this time. Daughter receptive to palliative care follow-ups. Case discussed with Dr. Saleh and bedside RN Jesus. . Family/friend interactions See interval note. . Advance Directives Living Will: Never completed Health Care Surrogate: Never completed Durable Power of Video Journalist: Never completed Advance Directive Specifics Health Care Surrogate(s): No advance directives completed. As per [place] statute, healthcare proxy decision making falls to patient's only daughter Norma Salvador. . Documented care wishes: No living will completed. . Significant change in goals: Full code. Aggressive management for now. . Objective Vital Signs Date Time Temp Pulse Resp B/P (MAP) Pulse Ox O2 Delivery O2 Flow Rate FiO2 04/25/17 12:00 98.2 93 26 184/88 (120) 97 04/25/17 12:00 94 04/25/17 10:00 93 04/25/17 09:11 98 21 04/25/17 08:00 94 04/25/17 08:00 98.5 94 24 128/63 (84) 98 04/25/17 06:00 100 04/25/17 04:00 100.1 102 24 180/81 (114) 98 04/25/17 04:00 102 04/25/17 02:00 95 04/25/17 00:00 101 04/25/17 00:00 101.8 101 25 163/75 (104) 96 04/24/17 22:00 99 04/24/17 20:00 96 04/24/17 20:00 100.0 96 26 162/71 (101) 95 04/24/17 18:17 98 21 04/24/17 18:00 96 04/24/17 16:00 100 04/24/17 16:00 98.1 100 18 169/66 (100) 99 04/24/17 14:00 87 Intake & Output 04/25/17 04/25/17 07:00 19:00 Intake Total 658 ml 245 ml Output Total 3 ml Balance 655 ml 245 ml IV Total 658 ml 245 ml Output Urine Total 3 ml # Bowel Movements 0 Physical Exam CONSTITUTIONAL/GENERAL: This is an elderly female resting in bed in no acute distress. TUBES/LINES/DRAINS: PIV's. SKIN: No jaundice, rashes, or lesions. Ecchymoses on upper extremities. Skin temperature appropriate. Not diaphoretic. Surgical incision to left hip, covered in dressing. Dressing dry and intact. HEAD: Atraumatic. Normocephalic. EYES: Pupils equal and round and reactive. No scleral icterus. No injection or drainage. Left side gaze. ENT: Unable to evaluate hearing secondary to clinical condition. Nose without bleeding or purulent drainage. Moist oral mucosa. NECK: Trachea midline. Supple. CARDIOVASCULAR: Regular rate and rhythm. Peripheral pulses symmetric. RESPIRATORY/CHEST: Symmetric, unlabored respirations. Clear, diminished to auscultation. Breath sounds equal bilaterally. No wheezes, rales, or rhonchi. GASTROINTESTINAL: Abdomen soft, round, mildly distended. Bowel sounds present. GENITOURINARY: Without palpable bladder distension. MUSCULOSKELETAL: Extremities without clubbing, cyanosis, or edema. NEUROLOGICAL: Eyes open, not tracking. Left-sided case. Right-sided hemiparesis. Not following commands. PSYCHIATRIC: Unable to evaluate secondary to clinical condition. Appears of anxiety. . Diagnostic Tests Laboratory Laboratory Tests Test 04/23/17 05:10 04/23/17 05:19 04/24/17 04:37 04/24/17 10:41 White Blood Count 11.2 TH/MM3 (4.0-11.0) 7.7 TH/MM3 (4.0-11.0) TH/MM3 (4.0-11.0) Red Blood Count 2.59 MIL/MM3 (4.00-5.30) 2.40 MIL/MM3 (4.00-5.30) MIL/MM3 (4.00-5.30) Hemoglobin 8.4 GM/DL (11.6-15.3) 7.8 GM/DL (11.6-15.3) GM/DL (11.6-15.3) Hematocrit 25.0 % (35.0-46.0) 22.9 % (35.0-46.0) % (35.0-46.0) Mean Corpuscular Volume 96.4 FL (80.0-100.0) 95.6 FL (80.0-100.0) FL (80.0-100.0) Mean Corpuscular Hemoglobin 32.4 PG (27.0-34.0) 32.4 PG (27.0-34.0) PG (27.0-34.0) Mean Corpuscular Hemoglobin Concent 33.6 % (32.0-36.0) 33.9 % (32.0-36.0) % (32.0-36.0) Red Cell Distribution Width 13.1 % (11.6-17.2) 12.9 % (11.6-17.2) % (11.6-17.2) Platelet Count 211 TH/MM3 (150-450) 213 TH/MM3 (150-450) TH/MM3 (150-450) Mean Platelet Volume 9.1 FL (7.0-11.0) 9.6 FL (7.0-11.0) FL (7.0-11.0) Blood Urea Nitrogen 20 MG/DL (7-18) 27 MG/DL (7-18) Creatinine 0.48 MG/DL (0.50-1.00) 0.49 MG/DL (0.50-1.00) Random Glucose 249 MG/DL (74-106) 221 MG/DL (74-106) Total Protein 5.6 GM/DL (6.4-8.2) 5.2 GM/DL (6.4-8.2) Albumin 2.3 GM/DL (3.4-5.0) 2.0 GM/DL (3.4-5.0) Calcium Level 8.2 MG/DL (8.5-10.1) 7.7 MG/DL (8.5-10.1) Phosphorus Level 1.1 MG/DL (2.5-4.9) Magnesium Level 2.0 MG/DL (1.5-2.5) Alkaline Phosphatase 68 U/L (45-117) 93 U/L (45-117) Aspartate Amino Transf (AST/SGOT) 12 U/L (15-37) 20 U/L (15-37) Alanine Aminotransferase (ALT/SGPT) 10 U/L (10-53) 13 U/L (10-53) Total Bilirubin 0.5 MG/DL (0.2-1.0) 0.6 MG/DL (0.2-1.0) Sodium Level 140 MEQ/L (136-145) 140 MEQ/L (136-145) Potassium Level 4.2 MEQ/L (3.5-5.1) 3.6 MEQ/L (3.5-5.1) Chloride Level 109 MEQ/L (98-107) 108 MEQ/L (98-107) Carbon Dioxide Level 18.0 MEQ/L (21.0-32.0) 20.2 MEQ/L (21.0-32.0) Anion Gap 13 MEQ/L (5-15) 12 MEQ/L (5-15) Estimat Glomerular Filtration Rate 126 ML/MIN (>89) 123 ML/MIN (>89) Neutrophils (%) (Auto) 85.7 % (16.0-70.0) % (16.0-70.0) Lymphocytes (%) (Auto) 5.7 % (9.0-44.0) % (9.0-44.0) Monocytes (%) (Auto) 7.0 % (0.0-8.0) % (0.0-8.0) Eosinophils (%) (Auto) 1.2 % (0.0-4.0) % (0.0-4.0) Basophils (%) (Auto) 0.4 % (0.0-2.0) % (0.0-2.0) Neutrophils # (Auto) 6.6 TH/MM3 (1.8-7.7) TH/MM3 (1.8-7.7) Lymphocytes # (Auto) 0.4 TH/MM3 (1.0-4.8) TH/MM3 (1.0-4.8) Monocytes # (Auto) 0.5 TH/MM3 (0-0.9) TH/MM3 (0-0.9) Eosinophils # (Auto) 0.1 TH/MM3 (0-0.4) TH/MM3 (0-0.4) Basophils # (Auto) 0.0 TH/MM3 (0-0.2) TH/MM3 (0-0.2) CBC Comment DIFF FINAL Differential Comment Hemoglobin A1c 12.9 % (4.3-6.0) Total Creatine Kinase 90 U/L (26-192) Troponin I 0.19 NG/ML (0.02-0.05) Test 04/25/17 12:11 White Blood Count 9.6 TH/MM3 (4.0-11.0) Red Blood Count 2.85 MIL/MM3 (4.00-5.30) Hemoglobin 9.1 GM/DL (11.6-15.3) Hematocrit 27.0 % (35.0-46.0) Mean Corpuscular Volume 95.0 FL (80.0-100.0) Mean Corpuscular Hemoglobin 31.9 PG (27.0-34.0) Mean Corpuscular Hemoglobin Concent 33.5 % (32.0-36.0) Red Cell Distribution Width 13.2 % (11.6-17.2) Platelet Count 246 TH/MM3 (150-450) Mean Platelet Volume 8.6 FL (7.0-11.0) Prothrombin Time 13.4 SEC (9.8-11.6) Prothromb Time International Ratio 1.2 RATIO Activated Partial Thromboplast Time 23.7 SEC (24.3-30.1) Blood Urea Nitrogen 30 MG/DL (7-18) Creatinine 0.52 MG/DL (0.50-1.00) Random Glucose 221 MG/DL (74-106) Total Protein 6.1 GM/DL (6.4-8.2) Albumin 2.4 GM/DL (3.4-5.0) Calcium Level 7.9 MG/DL (8.5-10.1) Alkaline Phosphatase 104 U/L (45-117) Aspartate Amino Transf (AST/SGOT) 19 U/L (15-37) Alanine Aminotransferase (ALT/SGPT) 15 U/L (10-53) Total Bilirubin 0.7 MG/DL (0.2-1.0) Sodium Level 141 MEQ/L (136-145) Potassium Level 3.4 MEQ/L (3.5-5.1) Chloride Level 112 MEQ/L (98-107) Carbon Dioxide Level 15.8 MEQ/L (21.0-32.0) Anion Gap 13 MEQ/L (5-15) Estimat Glomerular Filtration Rate 115 ML/MIN (>89) Result Diagram: 04/25/17 1211 04/25/17 1211 Microbiology Microbiology Date/Time Source Procedure Growth Status 04/23/17 18:25 Blood Peripheral Aerobic Blood Culture - Preliminary NO GROWTH IN 2 DAYS Resulted 04/23/17 18:25 Blood Peripheral Anaerobic Blood Culture - Final QNS - SEE AEROBE REPORT Resulted 04/23/17 18:20 Blood Peripheral Aerobic Blood Culture - Preliminary NO GROWTH IN 2 DAYS Resulted 04/23/17 18:20 Blood Peripheral Anaerobic Blood Culture - Final QNS - SEE AEROBE REPORT Resulted Imaging Last [address] 04/24/17 0000 Signed Impressions: Service Date/Time: April 08:42 - CONCLUSION: 1. There is a large left MCA infarct. There is edema diffusely throughout the left MCA distribution. This would suggest completed infarct. The case was discussed with Dr. Ross. We did not feel the patient was a candidate for intracranial intervention due to the completed appearance of the infarct. 2. There is an old , encephalomalacic infarct involving the watershed distribution posteriorly on the left. Arnie Middleton MD Carotid Artery Ultrasound 04/24/17 0000 Signed Impressions: Service Date/Time: April 09:45 - CONCLUSION: 1. No hemodynamically significant carotid artery stenosis. Arnie Middleton MD Procedures * 04/21/17 -Left hip reduction and intramedullary nail fixation . Assessment and Plan Disease Oriented Problem List: (1) Acute CVA (cerebrovascular accident) (2) Hip fracture (3) Hypertension Symptom Scale: (1) Pain 0-10 Scale: Unable to quantify Comment: Secondary to recent surgical intervention (2) Debility 0-10 Scale: Unable to quantify Comment: Progressive. Pertinent Non-Medical Issues Psychosocial: Patient is originally from [facility]. Residing in [place] up until 2013 she moved to [place] to live with only daughter Trice. Patient is a , in 2006. Spiritual: No yarsani affiliation. Legal: No advance directives completed. Ethical issues impacting care: Patient unable to participating in medical decision-making secondary to clinical condition. Patient's daughter acting as healthcare proxy decision maker. . Important Contacts Daughter Norma Salvador . . Prognosis Mrs. Hein needs a 76-year-old female with a past medical history of hypertension, diabetes mellitus and prior CVA. Presented with left hip fracture , underwent ORIF. Clinical course complicated by large left MCA infarct with edema. Overall prognosis is poor for a meaningful neurological recovery or long -term survival given acute stroke, chronic ongoing comorbidities and advanced age. Patient appears hospice appropriate should family elects comfort-directed care. . Code Status: Full Code Plan * CODE STATUS: FULL CODE. Risks, benefits and limitations of CPR, intubation and mechanical ventilation has been discussed at length with abbey Green. * HEALTHCARE DECISION-MAKING: Patient unable to participate in medical decision- making secondary to clinical condition, minimally responsive post CVA. No advance directives completed, patient is . As per [place] statute, healthcare proxy decision-making falls to patient's only daughter Trice Salvador. * GOALS OF CARE: Daughter Trice acting as HCP verbalized that family would like to allow the weekend to reevaluate patient's clinical/neurological condition in order to make a decision regarding goals of care. At this time, daughter has elected continuation of full aggressive management to include full code and artificial nutrition. Discussed that given patient's AMS/anxiety, she will likely required bilateral soft wrist restraints to prevent patient from pulling NG tube. Daughter in agreement with this. Discussed that NG tube feeding is temporarily and that if goals of treatment remain aggressive, PEG tube placement will be discussed. Daughter verbalized understanding. * Hospice philosophy and benefits has been introduced to daughter. * SYMPTOMS: = Pain, secondary to recent surgical intervention. Morphine IV available as needed. = Debility, progressive. Likely to continue to worsen given recent acute stroke. * Case discussed with Dr. Saleh, bedside RN Jesus. * Palliative care contact information has been provided to patient's daughter. * Ongoing emotional support and active listening provided. * Spiritual services following. Case discussed with wood products manufacturer Joesph. Daughter requesting catholic food clerk. * Palliative care will continue to follow-up for further clarifications of goals of care as patient's clinical condition continues to evolve. . Time Spent Total Floor Time (mins): 33 (Total time to include review of medical records, physical exam, bedside goals of care conversation with patient's daughter and case discussion with Dr. Saleh and bedside RN Jesus.) >50% Counseling/Coord of Care: Yes Attestation To help prompt me to consider important information that might be impacting today's encounter and assessment, information from prior notes written by myself or my colleagues may have been "brought forward" into today's note. My signature on this note, however, is an attestation that I personally performed the exam, history, and/or decision-making noted today, and, unless otherwise indicated, the interactions with patient, family, and staff as well as the review of records all occurred today. I also attest that the listed assessment and stated plan reflect my best clinical judgment today based on the combination of historical information, prior notes, and today's exam/ interactions. When time spent is documented, it refers only to time spent today by the signer, or if indicated, combined time spent today by collaborating physician/nurse practitioner. Ashly Steven Apr 25, 2017 14:13
--- NOTE | 2017-04-25 14:53 | HHI.CCPN ---
Subjective Remarks/Hospital Course 04/24: 76-year-old female with a medical history significant for prior stroke, diabetes mellitus who was admitted with DKA and a hip fracture for which she underwent ORIF on 04/21. Patient developed altered mental status and was last noted to be okay around 5:30 AM. Subsequently there was a change in her mental status and she was noted to not be moving her right side for which stroke alert was called. Head CT showed large left MCA territory ischemic infarct with edema. Patient was transferred to the ICU by family medicine service in the critical care consult was requested. I evaluated the patient following arrival to the ICU. At that time she was laying in bed with her eyes open however not following commands and had a dense right hemiplegia. Patient was also evaluated by Dr. Malave from neurology. I further discussed current event with patient's daughter following her arrival to the ICU. Per the daughter patient has been living with her since her stroke in 2014 and does ambulate however has been having problems with memory and incontinence as well as gait difficulties. She does not feel patient would want intubation or tracheostomy or PEG tube. 04/25: Patient remains encephalopathic, awake though not following commands consistently. Dense right hemiplegia persists. Appears to be awake enough to protect airway currently. Patient's daughter rescinded DNR and made a full code last evening. Objective Vital Signs Date Time Temp Pulse Resp B/P (MAP) Pulse Ox O2 Delivery O2 Flow Rate FiO2 04/25/17 12:00 98.2 93 26 184/88 (120) 97 04/25/17 09:11 21 04/22/17 21:03 04/21/17 13:00 Nasal Cannula Intake and Output 04/25/17 04/25/17 04/26/17 08:00 16:00 00:00 Intake Total 658 ml 245 ml Output Total 3 ml Balance 655 ml 245 ml Result Diagram: 04/25/17 1211 04/25/17 1211 Imaging Last Impressions Head CT 04/24/17 0000 Signed Impressions: Service Date/Time: April 08:42 - CONCLUSION: 1. There is a large left MCA infarct. There is edema diffusely throughout the left MCA distribution. This would suggest completed infarct. The case was discussed with Dr. Ross. We did not feel the patient was a candidate for intracranial intervention due to the completed appearance of the infarct. 2. There is an old , encephalomalacic infarct involving the watershed distribution posteriorly on the left. Arnie Middleton MD Carotid Artery Ultrasound 04/24/17 0000 Signed Impressions: Service Date/Time: April 09:45 - CONCLUSION: 1. No hemodynamically significant carotid artery stenosis. Arnie Middleton MD Chest X-Ray 04/23/17 0000 Signed Impressions: Service Date/Time: Sunday, April 23, 2017 08:43 - CONCLUSION: Mild chronic interstitial changes. No acute abnormality. Deangelo Wren Jr., MD Hip X-Ray 04/21/17 0000 Signed Impressions: Service Date/Time: Friday, April 21, 2017 11:36 - CONCLUSION: Fluoroscopic images during placement of intramedullary siomara left femur. Benja Ramsey MD Hip and Pelvis X-Ray 04/20/17 0946 Signed Impressions: Service Date/Time: Thursday, April 20, 2017 10:36 - CONCLUSION: Mildly displaced intertrochanteric fracture. Benja Ramsey MD Objective Remarks HEENT/Neuro: Pallor present. No icterus, tongue moist, ARLEEN, drowsy, easily arousable, has spontaneous eye opening. Not following commands. Nonverbal. Dense right hemiplegia noted. Neck: No JVD Chest/pulmonary: CTA bilaterally Cardiovascular: S1-S2 regular no gallop or murmur GI/abdomen: Soft, nontender, bowel sounds present Extremities: Warm bilaterally, no edema. Dressing over left hip ORIF site noted A/P Assessment and Plan 76-year-old female with: Large left MCA territory ischemic infarct Encephalopathy Right hemiplegia Cerebral edema Left Hip fracture status post ORIF (04/21) Diabetes mellitus Prior stroke Plan: Neuro: Follow neuro status. Rectal aspirin per Dr. aMlave from neurology who evaluated the patient. Patient not a candidate for thrombolysis per discussion with neurology and radiology. If cerebral edema worsens patient would require endotracheal intubation and hyperventilation. Will order repeat head CT for Cardiovascular: IV hydration, watch for hypotension. Antihypertensives to keep systolic blood pressure less than to 200 mmHg Pulmonary: Supplemental O2. Currently appears to be protecting airway however may require endotracheal intubation for airway protection if neurologic status worsens. GI/liver: Insert Dobbhoff for tube feedings and medications if okay with patient 's daughter. Endocrine: Insulin sliding scale Heme: Follow CBC and coags. ID: No antibiotics at this time Prophylaxis: SCDs. Hold Lovenox/heparin in view of large stroke with concern for hemorrhagic transformation. I have explained to patient's daughter that there is a strong possibility that patient will need intubation possible tracheostomy and PEG tube placement and will be bedbound and may require detention placement in view of extent of her stroke. Discussed with family medicine team, EQUINE INTERN and palliative care service. Daughter wishes to continue full CODE STATUS at this time. Condition critical. Prognosis appears poor. Patient at high risk for deterioration. Darrel Saleh MD Apr 25, 2017 14:53
--- NOTE | 2017-04-25 17:15 | HHI.PR ---
Review/Management Diagnosis large left MCA stroke--prognosis poor Diagnosis/Plan: Subjective Subjective Comments No acute events reported Active Medications Current Medications Medications (Trade) Dose Ordered Sig/Zeferino Route Start Time Stop Time Status Last Admin (Tylenol) 650 mg Q6H PRN PO 04/20/17 14:30 04/22/17 22:58 (Zofran Inj) 4 mg Q6H PRN IV PUSH 04/20/17 15:00 (Morphine Inj) 1 mg Q3H PRN IV 04/20/17 17:15 04/22/17 18:49 (Morphine Inj) 2 mg Q3H PRN IV 04/20/17 17:15 04/25/17 12:54 (Narcan Inj) 0.4 mg UNSCH PRN IV 04/20/17 17:15 (Nalini-Colace) 1 tab BID PO 04/20/17 21:00 04/23/17 22:55 (Milk Of Magnesia Liq) 30 ml Q12H PRN PO 04/20/17 20:30 (Senokot) 17.2 mg Q12H PRN PO 04/20/17 20:30 04/23/17 22:55 (Dulcolax Supp) 10 mg DAILY PRN RECTAL 04/20/17 20:30 (Lactulose Liq) 30 ml DAILY PRN PO 04/20/17 20:30 (Oscal-D 250-125) 250 mg TID PO 04/21/17 13:00 04/23/17 18:00 ([place] 7.5-325 Mg) 1 tab Q3H PRN PO 04/21/17 11:45 04/23/17 22:56 (Vitamin D3) 5,000 units DAILY PO 04/22/17 09:00 04/23/17 07:50 (NS Flush) 2 ml BID IV FLUSH 04/24/17 21:00 04/24/17 20:49 (NS Flush) 2 ml UNSCH PRN IV FLUSH 04/24/17 09:30 Sodium Chloride 1,000 ml @ 70 mls/hr [id number] IV 04/24/17 09:25 04/25/17 09:02 (Aspirin Supp) 300 mg DAILY RECTAL 04/24/17 09:30 04/25/17 08:16 (D50w (Vial) Inj) 25 ml UNSCH PRN IV 04/24/17 18:15 (Glucagon Inj) 1 mg UNSCH PRN IM/SQ 04/24/17 18:15 (NovoLOG SUPPLEMENTAL SCALE) 1 Q4H SQ 04/24/17 22:00 04/25/17 16:44 (Levemir Inj) 10 units HS SQ 04/25/17 21:00 Allergies Allergies Coded Allergies No Known Allergies (Unverified04/20/17) Exam I&O / VS 04/25/17 04/25/17 04/26/17 14:59 22:59 06:59 Intake Total 245 ml Balance 245 ml IV Total 245 ml Vital Signs Date Time Temp Pulse Resp B/P (MAP) Pulse Ox O2 Delivery O2 Flow Rate FiO2 04/25/17 16:00 98.9 97 17 179/81 (113) 97 04/25/17 16:00 96 04/25/17 14:00 103 04/25/17 12:00 98.2 93 26 184/88 (120) 97 04/25/17 12:00 94 04/25/17 10:00 93 04/25/17 09:11 98 21 04/25/17 08:00 94 04/25/17 08:00 98.5 94 24 128/63 (84) 98 04/25/17 06:00 100 04/25/17 04:00 100.1 102 24 180/81 (114) 98 04/25/17 04:00 102 04/25/17 02:00 95 04/25/17 00:00 101 04/25/17 00:00 101.8 101 25 163/75 (104) 96 04/24/17 22:00 99 04/24/17 20:00 96 04/24/17 20:00 100.0 96 26 162/71 (101) 95 04/24/17 18:17 98 21 04/24/17 18:00 96 Exam Comments very lethargic, arouses to tactile stimulation CN--left conjugate gaze deviation. PERRL, Right upper motor neuron CN 7 palsey. MOTOR--no spontaneous movement RUE or RLE. with draws LUE and LLE Objective Micro and Labs Laboratory Tests Test 04/25/17 12:11 White Blood Count 9.6 Red Blood Count 2.85 Hemoglobin 9.1 Hematocrit 27.0 Mean Corpuscular Volume 95.0 Mean Corpuscular Hemoglobin 31.9 Mean Corpuscular Hemoglobin Concent 33.5 Red Cell Distribution Width 13.2 Platelet Count 246 Mean Platelet Volume 8.6 Prothrombin Time 13.4 Prothromb Time International Ratio 1.2 Activated Partial Thromboplast Time 23.7 Blood Urea Nitrogen 30 Creatinine 0.52 Random Glucose 221 Total Protein 6.1 Albumin 2.4 Calcium Level 7.9 Alkaline Phosphatase 104 Aspartate Amino Transf (AST/SGOT) 19 Alanine Aminotransferase (ALT/SGPT) 15 Total Bilirubin 0.7 Sodium Level 141 Potassium Level 3.4 Chloride Level 112 Carbon Dioxide Level 15.8 Anion Gap 13 Estimat Glomerular Filtration Rate 115 Date/Time Source Procedure Growth Status 04/23/17 18:25 Blood Peripheral Aerobic Blood Culture - Preliminary NO GROWTH IN 2 DAYS Resulted 04/23/17 18:25 Blood Peripheral Anaerobic Blood Culture - Final QNS - SEE AEROBE REPORT Resulted Diagnostic Tests carotid US--no significant stenosis ECHO --no embolic source. Marcio Malave PhD Apr 25, 2017 17:15
--- NOTE | 2017-04-25 17:32 | RADRPT ---
EXAM DATE/TIME: 04/25/2017 14:56 [facility] COMPARISON: No previous studies available for comparison. INDICATIONS : NG tube placement. MEDICAL HISTORY : Diabetes mellitus type II. Hypertension SURGICAL HISTORY : Hip surgery. ENCOUNTER: Subsequent ACUITY: 1 day PAIN SCORE: Non-responsive. LOCATION: Abdomen. FINDINGS: Single view of the lower chest and upper abdomen documents a feeding tube in place with distal tip in the mid gastric body. No other significant abnormality is seen. There are calcified uterine fibroids in the pelvis. CONCLUSION: 1. Feeding tube distal tip in the gastric body. 2. Partially visualized calcified uterine fibroids. Obdulio Sam MD on April 25, 2017 at 17:29 Board Certified Radiologist. This report was verified electronically.
--- NOTE | 2017-04-25 19:17 | PD.CONS ---
[facility] Service Rehabilitation Medicine Consult Requested By Marcio Malave M.D. Reason for Consult Comprehensive rehabilitation evaluation. Primary Care Physician Unknown History of Present Illness Amina Hein is a 76-year-old female but [facility] 04/20/17 after, the floor. She was noted to have glucose 559 and left intertrochanteric hip fracture. Head CT showed remote infarcts in the left occipital and left brainstem but no acute changes. On 04/21/17 she underwent IM nail placement for the left intertrochanteric hip fracture. On 04/24/17 she was noted to have change of mental status. Head CT showed large left MCA infarct with edema diffusely in the area of infarct. She is not felt to be a TPA candidate. Review of Systems ROS Limitations: Clinical Condition, Altered Mental Status, Speech Impaired Past Family Social History Allergies: Coded Allergies: No Known Allergies (Unverified , 04/20/17) Past Medical History Hypertension Diabetes mellitus Previous stroke Past Surgical History None listed Current Medications Current Medications Medications (Trade) Dose Ordered Sig/Zeferino Route Start Time Stop Time Status Last Admin (Tylenol) 650 mg Q6H PRN PO 04/20/17 14:30 04/22/17 22:58 (Zofran Inj) 4 mg Q6H PRN IV PUSH 04/20/17 15:00 (Morphine Inj) 1 mg Q3H PRN IV 04/20/17 17:15 04/22/17 18:49 (Morphine Inj) 2 mg Q3H PRN IV 04/20/17 17:15 04/25/17 12:54 (Narcan Inj) 0.4 mg UNSCH PRN IV 04/20/17 17:15 (Nalini-Colace) 1 tab BID PO 04/20/17 21:00 04/23/17 22:55 (Milk Of Magnesia Liq) 30 ml Q12H PRN PO 04/20/17 20:30 (Senokot) 17.2 mg Q12H PRN PO 04/20/17 20:30 04/23/17 22:55 (Dulcolax Supp) 10 mg DAILY PRN RECTAL 04/20/17 20:30 (Lactulose Liq) 30 ml DAILY PRN PO 04/20/17 20:30 (Oscal-D 250-125) 250 mg TID PO 04/21/17 13:00 04/25/17 18:23 (Brayton 7.5-325 Mg) 1 tab Q3H PRN PO 04/21/17 11:45 04/23/17 22:56 (Vitamin D3) 5,000 units DAILY PO 04/22/17 09:00 04/23/17 07:50 (NS Flush) 2 ml BID IV FLUSH 04/24/17 21:00 04/24/17 20:49 (NS Flush) 2 ml UNSCH PRN IV FLUSH 04/24/17 09:30 Sodium Chloride 1,000 ml @ 70 mls/hr [id number] IV 04/24/17 09:25 04/25/17 09:02 (Aspirin Supp) 300 mg DAILY RECTAL 04/24/17 09:30 04/25/17 08:16 (D50w (Vial) Inj) 25 ml UNSCH PRN IV 04/24/17 18:15 (Glucagon Inj) 1 mg UNSCH PRN IM/SQ 04/24/17 18:15 (NovoLOG SUPPLEMENTAL SCALE) 1 Q4H SQ 04/24/17 22:00 04/25/17 18:23 (Levemir Inj) 10 units HS SQ 04/25/17 21:00 Family History Unable to obtain Social History Prior to admission patient was independent with mobility and ADLs. She was living in [place], [place]. Exam I&O / VS 04/25/17 04/25/17 04/26/17 15:00 23:00 07:00 Intake Total 245 ml 651 ml Balance 245 ml 651 ml IV Total 245 ml 651 ml # Voids 3 # Bowel Movements 2 Vital Signs Date Time Temp Pulse Resp B/P (MAP) Pulse Ox O2 Delivery O2 Flow Rate FiO2 04/25/17 18:00 118 04/25/17 16:00 98.9 97 17 179/81 (113) 97 04/25/17 16:00 96 04/25/17 14:00 103 04/25/17 12:00 98.2 93 26 184/88 (120) 97 04/25/17 12:00 94 04/25/17 10:00 93 04/25/17 09:11 98 21 04/25/17 08:00 94 04/25/17 08:00 98.5 94 24 128/63 (84) 98 04/25/17 06:00 100 04/25/17 04:00 100.1 102 24 180/81 (114) 98 04/25/17 04:00 102 04/25/17 02:00 95 04/25/17 00:00 101 04/25/17 00:00 101.8 101 25 163/75 (104) 96 04/24/17 22:00 99 04/24/17 20:00 96 04/24/17 20:00 100.0 96 26 162/71 (101) 95 General: No acute distress Respiratory: Lungs CTA, Non-labored respirations, BS equal Gastrointestinal: Positive Bowel Sounds, Non-Distended Cardiovascular: Normal rate (tachycardic but regular), Regular Rhythm Musculoskeletal: ROM (within normal limits) Psychiatric: Other (no restlessness or agitation noted) Orientation: unable to asses Self, unable to asses Place, unable to asses Time , unable to asses Situation Neurologic: Pupils (PERRLA), EOM (left gaze preference and patient is not following to track or focus), Speech (nonverbal) Motor: Right Upper Extremity (flaccid), Left Upper Extremity (some semi- purposeful movement), Right Lower Extremity (flaccid), Left Lower Extremity ( withdraws) Sensory Unable to assess Babinski: Positive (equivocal bilaterally) Clonus: Negative Assessment and Plan Diagnosis: (1) Acute ischemic left middle cerebral artery (MCA) stroke ICD Codes: I63.512 - Cerebral infarction due to unspecified occlusion or stenosis of left middle cerebral artery Status: Acute (2) Right hemiplegia ICD Codes: G81.91 - Hemiplegia, unspecified affecting right dominant side Status: Acute (3) Aphasia ICD Codes: R47.01 - Aphasia Status: Acute (4) Hip fracture ICD Codes: S72.009A - Fracture of unspecified part of neck of unspecified femur , initial encounter for closed fracture Status: Acute Qualifiers: Encounter type: initial encounter Fracture type: closed Laterality: left Qualified Codes: S72.002A - Fracture of unspecified part of neck of left femur, initial encounter for closed fracture Assessment 1. 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 Left intertrochanteric hip fracture status post IM nail 04/21/17 3. Diabetes mellitus with DKA on admission 4. Hypertension 5. Previous stroke Plan 1. Physical therapy is mobilizing and patient is maximal assistance for supine to sit. 2. Occupational therapy is addressing ADLs and now moderate assistance for grooming and maximal assistance for upper body dressing 3. Speech therapy consulted for swallow and communication evaluation 4. SCDs in place for DVT prophylaxis 5. Reposition and monitor skin integrity 6. Minimize traction on right shoulder when mobilizing patient as right upper extremity is flaccid 7. Patient will need ongoing rehabilitation at discharge and case management is working with family for discharge planning. Palliative care is following. 8. Will follow while hospitalized and at discharge as appropriate Thank you for this consult Li Perrin MD Apr 25, 2017 19:17
[2017-04-25] MEDS ORDERED: INSULIN DETEMIR 100 UNITS/ML VIAL SQ SCH (21:00)
[2017-04-26] VITALS (12 sets, daily range): BP systolic 139–179; BP diastolic 64–84; PULSE 95–116; RESP 16–26; TEMP 98.3–99.1; O2SAT 95–100
[2017-04-26] MEDS: INSULIN ASPART SUPPLEMENTAL SCALE SQ SCH ×4 (03:48→20:00)
[2017-04-26] MEDS ORDERED: IOHEXOL 350 MG/ML 10 ML VIAL (for RAD DIAG) IVCONTRAST ONE (04:26)
--- NOTE | 2017-04-26 04:41 | RADRPT ---
EXAM DATE/TIME: 04/26/2017 04:26 [facility] COMPARISON: CT BRAIN W/O CONTRAST, April 24, 2017, 8:42. INDICATIONS : Follow up CVA. IV CONTRAST: 75 cc Omnipaque 350 (iohexol) IV RADIATION DOSE: 32.24 CTDIvol (mGy) MEDICAL HISTORY : Diabetes mellitus type 1. Hypertension. SURGICAL HISTORY : None. ENCOUNTER: Subsequent ACUITY: 2 days PAIN SCALE: 0/10 LOCATION: cranial TECHNIQUE: Multiple contiguous axial images were obtained of the head. Using automated exposure control and adj ustment of the mA and/or kV according to patient size, radiation dose was kept as low as reasonably a chievable to obtain optimal diagnostic quality images. DICOM format image data is available electro nically for review and comparison. FINDINGS: CEREBRUM: The ventricles are normal for age. There again is a large left MCA stroke which is well-demarcated. T here shift from left to right of 8 mm at the level of the third ventricle No evidence of blood produ cts. No extra-axial fluid collections are seen. POSTERIOR FOSSA: The cerebellum and brainstem are intact. The 4th ventricle is midline. The cerebellar pontine angle is unremarkable. EXTRACRANIAL: The visualized portion of the orbits is intact. SKULL: The calvaria is intact. No evidence of skull fracture. POST CONTRAST: No abnormal areas of parenchymal or dural enhancement. No evidence of blood-brain barrier breakdown. CONCLUSION: Continued large left MCA stroke with significant edema and shift. Elliott Castellon MD on April 26, 2017 at 4:37 Board Certified Radiologist. This report was verified electronically.
[2017-04-26 04:53] LABS: INTERNATIONAL NORMALIZED RATIO 1.2 RATIO; PROTHROMBIN TIME - PATIENT 12.8 SEC (9.8-11.6)
[2017-04-26 05:12] LABS: ALBUMIN 2.3 GM/DL (3.4-5.0); ALKALINE PHOSPHATASE 109 U/L (45-117); ALT (GPT) 14 U/L (10-53); AST (GOT) 23 U/L (15-37); BICARBONATE 15.9 MEQ/L (21.0-32.0); BLOOD UREA NITROGEN 36 MG/DL (7-18); CALCIUM 8.8 MG/DL (8.5-10.1); CHLORIDE 117 MEQ/L (98-107); CREATININE 0.61 MG/DL (0.50-1.00); GLOMERULAR FILTRATION RATE 96 ML/MIN (>89); GLUCOSE,RANDOM 264 MG/DL (74-106); SODIUM (NA) 146 MEQ/L (136-145); TOTAL BILIRUBIN ADULT 0.6 MG/DL (0.2-1.0)
[2017-04-26 05:49] LABS: HEMATOCRIT 29.7 % (35.0-46.0); HEMOGLOBIN 9.6 GM/DL (11.6-15.3); MEAN CELL VOLUME 95.2 FL (80.0-100.0); MEAN CORPUSCULAR HEMOGLOBIN 30.7 PG (27.0-34.0); MEAN CORPUSCULAR HGB CONC 32.2 % (32.0-36.0); MEAN PLATELET VOLUME 9.3 FL (7.0-11.0); PLATELET COUNT 195 TH/MM3 (150-450); RED BLOOD COUNT 3.12 MIL/MM3 (4.00-5.30); RED CELL DISTRIBUTION WIDTH 13.6 % (11.6-17.2); WHITE BLOOD COUNT 11.3 TH/MM3 (4.0-11.0)
[2017-04-26] MEDS: DOCUSATE SODIUM 50 MG/SENNA 8.6 MG TAB PO SCH ×2 (08:38→20:46)
[2017-04-26] MEDS: ASPIRIN 300 MG SUPP RECTAL SCH (08:38)
[2017-04-26] MEDS: CALCIUM/VITAMIN D 250 MG/125 U TAB PO SCH ×3 (08:38→18:27)
[2017-04-26] MEDS: SODIUM CHLORIDE 0.9% FLUSH 5 ML FLUSH IV FLUSH SCH ×2 (08:38→20:46)
[2017-04-26] MEDS: CHOLECALCIFEROL (VIT D3) 5000 UNIT CAP PO SCH (08:38)
[2017-04-26] MEDS: MORPHINE SULFATE 4 MG/ML INJ IV PRN ×2 (08:39→23:29)
[2017-04-26] MEDS ORDERED: DEXTROSE 50% IN WATER 50 ML VIAL(D50) IV PRN (09:45)
[2017-04-26] MEDS ORDERED: GLUCAGON 1 MG/ML VIAL OTHER PRN (09:45)
[2017-04-26] MEDS ORDERED: INSULIN ASPART SUPPLEMENTAL SCALE SQ SCH (11:00)
[2017-04-26] MEDS: INSULIN DETEMIR 100 UNITS/ML VIAL SQ SCH ×2 (11:05→20:46)
[2017-04-26] MEDS: MANNITOL 12.5 GM/50 ML VIAL IV SCH ×2 (11:06→18:00)
--- NOTE | 2017-04-26 11:41 | HHI.FPPN ---
Subjective Remarks Patient seen and examined this morning. Placed in restraints overnight. Patient with elevated blood pressure and heart rate overnight. Patient is nonverbal this morning. Dense right hemiplegia. Is protecting her airway. (Moisés Hanson MD, R2) Objective Vitals Vital Signs Date Time Temp Pulse Resp B/P (MAP) Pulse Ox O2 Delivery O2 Flow Rate FiO2 04/26/17 10:00 98 04/26/17 08:00 98.8 103 26 164/79 (107) 96 04/26/17 08:00 103 04/26/17 06:00 98 04/26/17 04:00 98.7 96 20 148/65 (92) 96 04/26/17 04:00 96 04/26/17 02:00 100 04/26/17 00:00 99.1 100 19 179/84 (115) 100 04/26/17 00:00 100 04/25/17 22:00 94 04/25/17 20:00 98.5 114 19 167/80 (109) 98 04/25/17 20:00 114 04/25/17 18:00 118 04/25/17 16:00 98.9 97 17 179/81 (113) 97 04/25/17 16:00 96 04/25/17 14:00 103 04/25/17 12:00 98.2 93 26 184/88 (120) 97 04/25/17 12:00 94 I/O 04/25/17 04/25/17 04/25/17 04/26/17 04/26/17 04/26/17 06:59 14:59 22:59 06:59 14:59 22:59 Intake Total 658 ml 245 ml 942 ml 762 ml Output Total 3 ml Balance 655 ml 245 ml 942 ml 762 ml IV Total 658 ml 245 ml 942 ml 401 ml Tube Feeding 361 ml Output Urine Total 3 ml # Voids 3 3 # Bowel Movements 0 2 2 (Moisés aHnson MD, R2) Result Diagram: 04/26/1741404/26/17414 Objective Remarks CONSTITUTIONAL/GEN: Nonverbal, lying in bed. LUNGS: coarse breath sounds CARDIOVASCULAR: RR without murmur or gallop. No edema. GI/ABD: soft without masses, without organomegaly. NEURO: Neglecting right side. Minimal response to stimulation. Right hemiplegia MUSC: Bandages on lateral left hip and thigh are clean dry and intact. (Moisés Hanson MD, R2) A/P Assessment and Plan 76 y/o female with history of HTN, DM, CVA admitted for DKA and hip fracture. Now with large MCA stroke. Neuro and continuing education specialist consulted. Working with palliative care for goals of care. Discharge Planning Pending stroke progression and discussion for goals of care (Moisés Hanson MD, R2) Attending Attestation Patient seen and examined. Case reviewed and discussed Agree with plan of care as discussed with me and documented in the resident note. (Angélica Malik MD) Problem List: (1) Acute CVA (cerebrovascular accident) ICD Codes: I63.9 - Cerebral infarction, unspecified Status: Acute Plan: Patient found minimally responsive with neurological deficits around 0820 04/26. Stat CT of head was ordered, which showed large left MCA infarct. Diffuse edema throughout the left MCA distribution, suggest completed infarct. This was discussed and was not a candidate for intracranial intervention. Echocardiogram- The left ventricular systolic function is low normal with an estimated ejection fraction in the range of 50-55%. Mild concentric left ventricular hypertrophy. Normal left ventricular size. [id number] mitral valve regurgitation. Carotid Artery US- No hemodynamically significant carotid stenosis -Repeat CT 04/26 shows significant edema and shift -Glucerna 1.5 mLs for diet via NG tube -Lease Administration Supervisor consult for management and recs -Consult palliative care-appreciate recs -Case discussed with daughter in-person about goals of care, limited treatment options, and poor prognosis. -Daughter continues to want aggressive care, at least through the weekend to rule out improvement. -Neurology consulted-appreciate recs -Does not recommend a CTA at this time -Rectal ASA -Consulted continuing education specialist, appreciate recs -IV hydration, watch for hypotension. -Keep systolic to less than 220 -Start mannitol due to edema -Q6H serum osm, goal <310 -Hold hypernatremic IVF due to hyperchloremia, but may be indicated -PICC line order placed for need of hypernatremic NS or insulin drip -Abdominal fullness on exam-bladder scan to rule out retention (2) Type 2 diabetes mellitus ICD Codes: E11.9 - Type 2 diabetes mellitus without complications Status: Chronic Plan: Admitted for DKA which has now resolved. Hemoglobin A1C is 12.9. Diabetes is uncontrolled. - Increased levemir to 20 units BID - High dose insulin sliding scale - Glucerna for NG tube feedings - Regular accuchecks q4H - Continue IV hydration (3) Hip fracture ICD Codes: S72.009A - Fracture of unspecified part of neck of unspecified femur , initial encounter for closed fracture Status: Acute Plan: Patient found fallen on the ground. Hip deformity noticed on exam. Left leg shortened and externally rotated. Hips/pelvis x-ray shows complete intertrochanteric fracture with mild displacement. Old fracture of proximal femur. S/P left hip reduction ad intramedullary nail fixation on 04-21-17 -Consult orthopedics-appreciate recs * Cleared for discharge to rehabilitation * WBAT * Daily dressing changes * CM for rehabilitation placement * Follow-up in 2 weeks -Fluids as above -Tylenol, morphine PRN pain (4) Hypertension ICD Codes: I10 - Essential (primary) hypertension Status: Acute Plan: Blood pressure to normal limits on arrival. Daughter states the patient was on lisinopril in the past. -Continue fluids as above -Hold BP meds for permissive HTN (5) Fluids, Electrolytes, and Nutrition Status: Acute Plan: Fluids: IVF Electrolyte: monitor, replace PRN Nutrition: NG tube feedings, Glucerna DVT ppx: SCDs; chemoppx contraindicated to prevent hemorrhage stroke (Moisés Hanson MD, R2) Problem Qualifiers (1) Type 2 diabetes mellitus: Qualified Codes: E11.9 - Type 2 diabetes mellitus without complications (2) Hip fracture: Qualified Codes: S72.002A - Fracture of unspecified part of neck of left femur , initial encounter for closed fracture (3) Hypertension: Qualified Codes: I10 - Essential (primary) hypertension Moisés Hanson MD, R2 Apr 26, 2017 11:41 Angélica Malik MD Apr 28, 2017 16:44
[2017-04-26 13:36] LABS: BACTERIA, URINE RARE /hpf; BILIRUBIN, URINE NEG (NEG); BLOOD, URINE SMALL (NEG); GLUCOSE,URINE 1000 mg/dL (NEG); KETONE, URINE 40 mg/dL (NEG); NITRITE,URINE NEG (NEG); PH, URINE 6.5 (5.0-8.5); URINE COLOR YELLOW (YELLW/STRAW); URINE LEUKOCYTE ESTERASE LARGE (NEG)
[2017-04-26] MEDS: SODIUM CHLOR 0.9% 1000 ML INJ 1,000 ML IV SCH ×2 (14:46→14:51)
--- NOTE | 2017-04-26 15:24 | HHI.CCPN ---
Subjective Remarks/Hospital Course 04/24: 76-year-old female with a medical history significant for prior stroke, diabetes mellitus who was admitted with DKA and a hip fracture for which she underwent ORIF on 04/21. Patient developed altered mental status and was last noted to be okay around 5:30 AM. Subsequently there was a change in her mental status and she was noted to not be moving her right side for which stroke alert was called. Head CT showed large left MCA territory ischemic infarct with edema. Patient was transferred to the ICU by family medicine service in the critical care consult was requested. I evaluated the patient following arrival to the ICU. At that time she was laying in bed with her eyes open however not following commands and had a dense right hemiplegia. Patient was also evaluated by Dr. Malave from neurology. I further discussed current event with patient's daughter following her arrival to the ICU. Per the daughter patient has been living with her since her stroke in 2014 and does ambulate however has been having problems with memory and incontinence as well as gait difficulties. She does not feel patient would want intubation or tracheostomy or PEG tube. 04/25: Patient remains encephalopathic, awake though not following commands consistently. Dense right hemiplegia persists. Appears to be awake enough to protect airway currently. Patient's daughter rescinded DNR and made a full code last evening. 04/26: Remains encephalopathic, not following commands. On Dobbhoff for tube feeds at 30 cc per hour. Had urinary retention and drained 2 L of urine after placing Leavitt catheter today. CT head done this morning with large left MCA territory infarct with left to right midline shift and significant cerebral edema. Hyperglycemia noted. Patient given mannitol earlier for increasing cerebral edema Objective Vital Signs Date Time Temp Pulse Resp B/P (MAP) Pulse Ox O2 Delivery O2 Flow Rate FiO2 04/26/17 14:00 101 04/26/17 12:00 98.3 16 143/68 (93) 96 04/25/17 09:11 21 04/22/17 21:03 Intake and Output 04/26/17 04/26/17 04/27/17 08:00 16:00 00:00 Intake Total 762 ml 627 ml Balance 762 ml 627 ml Result Diagram: 04/26/17 0415 04/26/17 0415 Imaging Last Impressions Head CT 04/24/17 0000 Signed Impressions: Service Date/Time: April 08:42 - CONCLUSION: 1. There is a large left MCA infarct. There is edema diffusely throughout the left MCA distribution. This would suggest completed infarct. The case was discussed with Dr. Ross. We did not feel the patient was a candidate for intracranial intervention due to the completed appearance of the infarct. 2. There is an old , encephalomalacic infarct involving the watershed distribution posteriorly on the left. Arnie Middleton MD Carotid Artery Ultrasound 04/24/17 0000 Signed Impressions: Service Date/Time: April 09:45 - CONCLUSION: 1. No hemodynamically significant carotid artery stenosis. Arnie Middleton MD Chest X-Ray 04/23/17 0000 Signed Impressions: Service Date/Time: Sunday, April 23, 2017 08:43 - CONCLUSION: Mild chronic interstitial changes. No acute abnormality. Deangelo Wren Jr., MD Hip X-Ray 04/21/17 0000 Signed Impressions: Service Date/Time: Friday, April 21, 2017 11:36 - CONCLUSION: Fluoroscopic images during placement of intramedullary siomara left femur. Benja Ramsey MD Hip and Pelvis X-Ray 04/20/17 0946 Signed Impressions: Service Date/Time: Thursday, April 20, 2017 10:36 - CONCLUSION: Mildly displaced intertrochanteric fracture. Benja Ramsey MD Objective Remarks HEENT/Neuro: Pallor present. No icterus, tongue moist, ARLEEN, drowsy, barely arousable, has spontaneous eye opening. Not following commands. Nonverbal. Dense right hemiplegia noted. Neck: No JVD Chest/pulmonary: Good air entry bilaterally, no wheezing or crackles. Cardiovascular: S1-S2 regular no gallop or murmur GI/abdomen: Soft, nontender, bowel sounds present. Extremities: Warm bilaterally, no edema. Dressing over left hip ORIF site noted A/P Assessment and Plan 76-year-old female with: Large left MCA territory ischemic infarct Cerebral edema with midline shift Encephalopathy Right hemiplegia Left Hip fracture status post ORIF (04/21) Diabetes mellitus Prior stroke Urinary retention Plan: Neuro: Follow neuro status. Aspirin per Dr. Malave from neurology who evaluated the patient. Patient not a candidate for thrombolysis per discussion with neurology and radiology. If cerebral edema/ neurologic status worsens patient would require endotracheal intubation and hyperventilation. Repeat head CT per neurology. Started mannitol 12.5 g IV every 6 hourly for cerebral edema. Follow serial osmolarities Cardiovascular: IV hydration, watch for hypotension. Antihypertensives to keep systolic blood pressure less than to 180 mmHg Pulmonary: Supplemental O2. May require endotracheal intubation for airway protection. GI/liver: Dobbhoff for tube feedings and medications. Endocrine: Insulin sliding scale. Continue Levemir. /renal: Strict intake output, monitor and replete electrolytes, follow BUN/ creatinine. Leavitt catheter placed for urinary retention on 04/26. Heme: Follow CBC and coags. ID: No antibiotics at this time Prophylaxis: SCDs. Hold Lovenox/heparin in view of large stroke with concern for hemorrhagic transformation. I have explained to patient's daughter that there is a strong possibility that patient will need intubation possible tracheostomy and PEG tube placement and will be bedbound and may require assisted placement in view of extent of her stroke. Being followed by palliative care team. Discussed with family medicine team, ZINC PLATE CUTTER. Daughter wishes to continue full CODE STATUS at this time. Condition critical. Prognosis appears poor. Patient at high risk for deterioration. Darrel Saleh MD Apr 26, 2017 15:24
[2017-04-26] MEDS: DEXTROSE 50% IN WATER 50 ML SYRINGE IV PRN (20:42)
[2017-04-26 21:50] LABS: BICARBONATE 25.5 MEQ/L (21.0-32.0); CALCIUM 8.6 MG/DL (8.5-10.1); CREATININE 0.42 MG/DL (0.50-1.00)
[2017-04-27] VITALS (13 sets, daily range): BP systolic 110–142; BP diastolic 56–78; PULSE 100–124; RESP 19–26; TEMP 97.6–99.7; O2SAT 95–100
[2017-04-27] MEDS: SODIUM CHLOR 0.9% 1000 ML INJ 1,000 ML IV SCH ×2 (03:53→23:19)
[2017-04-27] MEDS: METOPROLOL TARTRATE 5 MG/5 ML VIAL IV PUSH PRN (03:53)
[2017-04-27] MEDS: INSULIN ASPART SUPPLEMENTAL SCALE SQ SCH ×7 (04:00→23:19)
[2017-04-27] MEDS: MANNITOL 12.5 GM/50 ML VIAL IV SCH ×5 (06:00→23:38)
[2017-04-27 06:15] LABS: AUTOMATED NEUTROPHIL # 8.4 TH/MM3 (1.8-7.7); EOSINOPHIL % 0.1 % (0.0-4.0); HEMATOCRIT 24.2 % (35.0-46.0); HEMOGLOBIN 8.2 GM/DL (11.6-15.3); LYMPH % 7.6 % (9.0-44.0); LYMPHOCYTE # 0.8 TH/MM3 (1.0-4.8); MEAN CORPUSCULAR HEMOGLOBIN 32.3 PG (27.0-34.0); MEAN PLATELET VOLUME 8.6 FL (7.0-11.0); MONO % 11.4 % (0.0-8.0); MONOCYTE # 1.2 TH/MM3 (0-0.9); NEUT % 80.9 % (16.0-70.0); PLATELET COUNT 177 TH/MM3 (150-450); RED BLOOD COUNT 2.55 MIL/MM3 (4.00-5.30); RED CELL DISTRIBUTION WIDTH 13.9 % (11.6-17.2); WHITE BLOOD COUNT 10.4 TH/MM3 (4.0-11.0)
[2017-04-27 07:10] LABS: BICARBONATE 25.4 MEQ/L (21.0-32.0); CALCIUM 8.5 MG/DL (8.5-10.1); CREATININE 0.46 MG/DL (0.50-1.00); MAGNESIUM 2.3 MG/DL (1.5-2.5); PHOSPHORUS 1.1 MG/DL (2.5-4.9)
[2017-04-27] MEDS: SODIUM CHLORIDE 0.9% FLUSH 5 ML FLUSH IV FLUSH SCH ×2 (08:07→20:25)
[2017-04-27] MEDS: INSULIN DETEMIR 100 UNITS/ML VIAL SQ SCH ×3 (08:07→20:25)
[2017-04-27] MEDS ORDERED: MAGNESIUM OXIDE 400 MG TAB PO PRN (08:45)
[2017-04-27] MEDS ORDERED: POTASSIUM PHOSPHATE MONOBASIC 500 MG TAB PO PRN (08:45)
[2017-04-27] MEDS ORDERED: MAGNESIUM SULFATE INJ 2 GM in SODIUM CHLORIDE 0.9% INJ 96 ML IV PRN (08:45)
[2017-04-27] MEDS ORDERED: SODIUM PHOSPHATE INJ 30 MMOL in SODIUM CHLOR 0.9% 250 ML INJ 240 ML IV PRN (08:45)
[2017-04-27] MEDS ORDERED: POTASSIUM PHOSPHATE MONOBASIC 500 MG TAB PO/TUBE PRN (08:45)
[2017-04-27] MEDS ORDERED: MAGNESIUM SULFATE INJ 4 GM in SODIUM CHLORIDE 0.9% INJ 92 ML IV PRN (08:45)
[2017-04-27] MEDS ORDERED: POTASSIUM CHLORIDE 25 MEQ EFFERVESCENT TAB PO PRN (08:45)
[2017-04-27] MEDS ORDERED: POTASSIUM CHLOR 40 MEQ PREMIX 100 ML IV PRN ×2 (08:45)
--- NOTE | 2017-04-27 09:22 | HHI.CCPN ---
Subjective Remarks/Hospital Course 04/24: 76-year-old female with a medical history significant for prior stroke, diabetes mellitus who was admitted with DKA and a hip fracture for which she underwent ORIF on 04/21. Patient developed altered mental status and was last noted to be okay around 5:30 AM. Subsequently there was a change in her mental status and she was noted to not be moving her right side for which stroke alert was called. Head CT showed large left MCA territory ischemic infarct with edema. Patient was transferred to the ICU by family medicine service in the critical care consult was requested. I evaluated the patient following arrival to the ICU. At that time she was laying in bed with her eyes open however not following commands and had a dense right hemiplegia. Patient was also evaluated by Dr. Malave from neurology. I further discussed current event with patient's daughter following her arrival to the ICU. Per the daughter patient has been living with her since her stroke in 2014 and does ambulate however has been having problems with memory and incontinence as well as gait difficulties. She does not feel patient would want intubation or tracheostomy or PEG tube. 04/25: Patient remains encephalopathic, awake though not following commands consistently. Dense right hemiplegia persists. Appears to be awake enough to protect airway currently. Patient's daughter rescinded DNR and made a full code last evening. 04/26: Remains encephalopathic, not following commands. On Dobbhoff for tube feeds at 30 cc per hour. Had urinary retention and drained 2 L of urine after placing Leavitt catheter today. CT head done this morning with large left MCA territory infarct with left to right midline shift and significant cerebral edema. Hyperglycemia noted. Patient given mannitol earlier for increasing cerebral edema. 04/27: Remains encephalopathic, not following commands. On Dobbhoff tube feeds at 30 cc per hour. When into A. fib with RVR last night which responded with Lopressor 5 mg IV 1 dose. Objective Vital Signs Date Time Temp Pulse Resp B/P (MAP) Pulse Ox O2 Delivery O2 Flow Rate FiO2 04/27/17 08:09 98 Nasal Cannula 4.00 04/27/17 08:00 99.0 111 19 128/67 (87) 04/25/17 09:11 21 Intake and Output 04/27/17 04/27/17 04/28/17 08:00 16:00 00:00 Intake Total 865 ml Output Total 350 ml Balance 515 ml Result Diagram: 04/27/17 0530 04/27/17 0530 Imaging Last Impressions Head CT 04/24/17 0000 Signed Impressions: Service Date/Time: April 08:42 - CONCLUSION: 1. There is a large left MCA infarct. There is edema diffusely throughout the left MCA distribution. This would suggest completed infarct. The case was discussed with Dr. Ross. We did not feel the patient was a candidate for intracranial intervention due to the completed appearance of the infarct. 2. There is an old , encephalomalacic infarct involving the watershed distribution posteriorly on the left. Arnie Middleton MD Carotid Artery Ultrasound 04/24/17 0000 Signed Impressions: Service Date/Time: April 09:45 - CONCLUSION: 1. No hemodynamically significant carotid artery stenosis. Arnie Middleton MD Chest X-Ray 04/23/17 0000 Signed Impressions: Service Date/Time: Sunday, April 23, 2017 08:43 - CONCLUSION: Mild chronic interstitial changes. No acute abnormality. Deangelo Wren Jr., MD Hip X-Ray 04/21/17 0000 Signed Impressions: Service Date/Time: Friday, April 21, 2017 11:36 - CONCLUSION: Fluoroscopic images during placement of intramedullary siomara left femur. Benja Ramsey MD Hip and Pelvis X-Ray 04/20/17 0946 Signed Impressions: Service Date/Time: Thursday, April 20, 2017 10:36 - CONCLUSION: Mildly displaced intertrochanteric fracture. Benja Ramsey MD Objective Remarks HEENT/Neuro: Pallor present. No icterus, tongue moist, ARLEEN, drowsy, barely arousable, has spontaneous eye opening. Not following commands. Nonverbal. Dense right hemiplegia noted. Neck: No JVD Chest/pulmonary: Good air entry bilaterally, no wheezing or crackles. Cardiovascular: S1-S2 regular no gallop or murmur GI/abdomen: Soft, nontender, bowel sounds present. Extremities: Warm bilaterally, no edema. Dressing over left hip ORIF site noted A/P Assessment and Plan 76-year-old female with: Large left MCA territory ischemic infarct Cerebral edema with midline shift Encephalopathy Right hemiplegia Left Hip fracture status post ORIF (04/21) Diabetes mellitus Prior stroke Urinary retention Plan: Neuro: Follow neuro status. Aspirin per Dr. Malave from neurology who evaluated the patient. Patient not a candidate for thrombolysis per discussion with neurology and radiology. If cerebral edema/ neurologic status worsens patient would require endotracheal intubation and hyperventilation. Repeat head CT per neurology. Started mannitol 12.5 g IV every 6 hourly for cerebral edema. Follow serial osmolality. Cardiovascular: IV hydration, watch for hypotension. Antihypertensives to keep systolic blood pressure less than to 180 mmHg Pulmonary: Supplemental O2. May require endotracheal intubation for airway protection. GI/liver: Dobbhoff for tube feedings and medications. Endocrine: Insulin sliding scale. Continue Levemir. /renal: Strict intake output, monitor and replete electrolytes, follow BUN/ creatinine. Leavitt catheter placed for urinary retention on 04/26. Heme: Follow CBC and coags. ID: No antibiotics at this time Prophylaxis: SCDs. Hold Lovenox/heparin in view of large stroke with concern for hemorrhagic transformation. I have explained to patient's daughter that there is a strong possibility that patient will need intubation possible tracheostomy and PEG tube placement and will be bedbound and may require residential placement in view of extent of her stroke. This was reiterated on 04/26/2017 and patient's daughter was going to talk to other family members to decide further course of action. Being followed by palliative care team. Discussed with family medicine team, CORE DIPPER. Daughter wishes to continue full CODE STATUS at this time. Condition critical. Prognosis appears poor. Patient at high risk for deterioration. Darrel Saleh MD Apr 27, 2017 09:22
[2017-04-27] MEDS: ASPIRIN 325 MG TAB DOBHOFF SCH (09:31)
[2017-04-27] MEDS: DOCUSATE SODIUM 50 MG/SENNA 8.6 MG TAB PO SCH ×2 (09:31→20:25)
[2017-04-27] MEDS: CALCIUM/VITAMIN D 250 MG/125 U TAB PO SCH ×3 (09:31→18:45)
[2017-04-27] MEDS: CHOLECALCIFEROL (VIT D3) 5000 UNIT CAP PO SCH (09:31)
[2017-04-27] MEDS: POTASSIUM CHLOR 20 MEQ PREMIX 100 ML IV PRN ×4 (09:43→16:44)
--- NOTE | 2017-04-27 10:23 | HHI.FPPN ---
Subjective Remarks Saw and examined patient this morning. She had atrial fibrillation overnight per Dr. Saleh. Catheter was placed yesterday due to urinary retention. Called and left message with daughter. (Shandra Braun MD R1) Objective Vitals Vital Signs Date Time Temp Pulse Resp B/P (MAP) Pulse Ox O2 Delivery O2 Flow Rate FiO2 04/27/17 08:09 98 Nasal Cannula 4.00 04/27/17 08:00 99.0 111 19 128/67 (87) 98 04/27/17 08:00 111 04/27/17 06:00 100 04/27/17 04:00 100 04/27/17 04:00 98.5 100 20 130/63 (85) 100 04/27/17 02:00 115 04/27/17 00:00 114 04/27/17 00:00 97.6 114 22 110/56 (74) 99 04/26/17 22:00 116 04/26/17 20:00 100 04/26/17 20:00 98.6 100 21 139/64 (89) 100 04/26/17 18:00 96 04/26/17 16:00 98.4 98 22 147/67 (93) 95 04/26/17 16:00 98 04/26/17 14:00 101 04/26/17 12:00 98.3 95 16 143/68 (93) 96 04/26/17 12:00 96 I/O 04/26/17 04/26/17 04/26/17 04/27/17 04/27/17 04/27/17 07:00 15:00 23:00 07:00 15:00 23:00 Intake Total 762 ml 627 ml 667 ml 865 ml Output Total 2200 ml 350 ml Balance 762 ml 627 ml -1533 ml 515 ml IV Total 401 ml 627 ml 263 ml 805 ml Tube Feeding 361 ml 404 ml Other 60 ml Output Urine Total 2150 ml 350 ml Stool Total 50 ml # Voids 3 # Bowel Movements 2 1 0 (Shandra Braun MD R1) Result Diagram: 04/27/17 0530 04/27/17 0530 Imaging Last Impressions Head CT 04/26/17 0500 Signed Impressions: Service Date/Time: Wednesday, April 26, 2017 04:26 - CONCLUSION: Continued large left MCA stroke with significant edema and shift. Elliott Castellon MD Abdomen X-Ray 04/25/17 0000 Signed Impressions: Service Date/Time: Tuesday, April 25, 2017 14:56 - CONCLUSION: 1. Feeding tube distal tip in the gastric body. 2. Partially visualized calcified uterine fibroids. Obdulio Sam MD Carotid Artery Ultrasound 04/24/17 0000 Signed Impressions: Service Date/Time: April 09:45 - CONCLUSION: 1. No hemodynamically significant carotid artery stenosis. Arnie Middleton MD Chest X-Ray 04/23/17 0000 Signed Impressions: Service Date/Time: Sunday, April 23, 2017 08:43 - CONCLUSION: Mild chronic interstitial changes. No acute abnormality. Deangelo Wren Jr., MD Hip X-Ray 04/21/17 0000 Signed Impressions: Service Date/Time: Friday, April 21, 2017 11:36 - CONCLUSION: Fluoroscopic images during placement of intramedullary siomara left femur. Benja Ramsey MD Hip and Pelvis X-Ray 04/20/17 0946 Signed Impressions: Service Date/Time: Thursday, April 20, 2017 10:36 - CONCLUSION: Mildly displaced intertrochanteric fracture. Benja Ramsey MD Objective Remarks CONSTITUTIONAL/GEN: Nonverbal, lying in bed. Lethargic. LUNGS: coarse breath sounds CARDIOVASCULAR: RR without murmur or gallop. No edema. GI/ABD: soft without masses, without organomegaly. NEURO: Neglecting right side. Minimal response to stimulation. Right hemiplegia MUSC: Bandages on lateral left hip and thigh are clean dry and intact. (Shandra Braun MD R1) A/P Assessment and Plan 76 y/o female with history of HTN, DM, CVA admitted for DKA and hip fracture. Now with large MCA stroke. Neuro and customer service analyst consulted. Working with palliative care for goals of care. Discharge Planning Pending stroke progression and discussion for goals of care (Shandra Braun MD R1) Attending Attestation Patient seen and examined. Case reviewed and discussed Agree with plan of care as discussed with me and documented in the resident note. (Angélica Malik MD) Problem List: (1) Acute CVA (cerebrovascular accident) ICD Codes: I63.9 - Cerebral infarction, unspecified Status: Acute Plan: Patient found minimally responsive with neurological deficits around 0820 04/26. Stat CT of head was ordered, which showed large left MCA infarct. Diffuse edema throughout the left MCA distribution, suggest completed infarct. This was discussed and was not a candidate for intracranial intervention. Repeat CT 04/26 shows significant edema and shift Echocardiogram- The left ventricular systolic function is low normal with an estimated ejection fraction in the range of 50-55%. Mild concentric left ventricular hypertrophy. Normal left ventricular size. [id number] mitral valve regurgitation. Carotid Artery US- No hemodynamically significant carotid stenosis -May hold Glucerna 1.5 mLs for diet via NG tube due to concerns about aspiration and breathing. -Meal Miller consult for management and recs -Consult palliative care-appreciate recs -Case discussed with daughter in-person about goals of care, limited treatment options, and poor prognosis. -Daughter continues to want aggressive care, at least through the weekend to rule out improvement. -Neurology consulted-appreciate recs -Does not recommend a CTA at this time -Rectal ASA -Consulted customer service analyst, appreciate recs -IV hydration, watch for hypotension. -Keep systolic to less than 220 -Start mannitol due to edema -Q6H serum osm, goal <310 -HELD because of serum osmolarity greater than 315 -Hold hypernatremic IVF due to hyperchloremia, but may be indicated -PICC line order placed for need of hypernatremic NS or insulin drip -Catheter placed due to urinary retention (2) Type 2 diabetes mellitus ICD Codes: E11.9 - Type 2 diabetes mellitus without complications Status: Chronic Plan: Admitted for DKA which has now resolved. Hemoglobin A1C is 12.9. Diabetes is uncontrolled. - Decreased levemir to 15 units BID due to hypoglycemia - High dose insulin sliding scale - Glucerna for NG tube feedings - Regular accuchecks q4H - Continue IV hydration (3) Hip fracture ICD Codes: S72.009A - Fracture of unspecified part of neck of unspecified femur , initial encounter for closed fracture Status: Acute Plan: Patient found fallen on the ground. Hip deformity noticed on exam. Left leg shortened and externally rotated. Hips/pelvis x-ray shows complete intertrochanteric fracture with mild displacement. Old fracture of proximal femur. S/P left hip reduction ad intramedullary nail fixation on 04-21-17 -Consult orthopedics-appreciate recs * Cleared for discharge to rehabilitation * WBAT * Daily dressing changes * CM for rehabilitation placement * Follow-up in 2 weeks -Fluids as above -Tylenol, morphine PRN pain (4) Hypertension ICD Codes: I10 - Essential (primary) hypertension Status: Acute Plan: Blood pressure to normal limits on arrival. Daughter states the patient was on lisinopril in the past. -Continue fluids as above -Hold BP meds for permissive HTN (5) Fluids, Electrolytes, and Nutrition Status: Acute Plan: Fluids: IVF Electrolyte: on electrolyte protocol Nutrition: May hold NG tube feedings, Glucerna due to concerns about aspiration DVT ppx: SCDs; chemoppx contraindicated to prevent hemorrhage stroke (Shandra Braun MD R1) Problem Qualifiers (1) Type 2 diabetes mellitus: Qualified Codes: E11.9 - Type 2 diabetes mellitus without complications (2) Hip fracture: Qualified Codes: S72.002A - Fracture of unspecified part of neck of left femur , initial encounter for closed fracture (3) Hypertension: Qualified Codes: I10 - Essential (primary) hypertension Shandra Braun MD R1 Apr 27, 2017 10:23 Angélica Malik MD Apr 28, 2017 16:44
[2017-04-27] MEDS: POTASSIUM PHOSPHATE INJ 30 MMOL in SODIUM CHLOR 0.9% 250 ML INJ 250 ML IV PRN (10:49)
--- NOTE | 2017-04-27 11:57 | EKG ---
Date Performed: 04/26/2017 Time Performed: 21:28:48 PTAGE: 76 years EKG: Atrial fibrillation with rapid ventricular response Poor R wave progression - probable norm al variant Lateral ST-T changes may be due to myocardial ischemia Abnormal ECG PREVIOUS TRACING : 04/24/2017 09.41 Compared to the previous tracing sinus rrhythm no longer pr esent DOCTOR: Irene Mike Interpretating Date/Time 04/27/2017 11:56:32
[2017-04-27 23:19] LABS: PHOSPHORUS 1.9 MG/DL (2.5-4.9)
[2017-04-28] VITALS (14 sets, daily range): BP systolic 98–158; BP diastolic 56–87; PULSE 72–105; RESP 19–29; TEMP 97.8–100.5; O2SAT 92–99
[2017-04-28] MEDS: ACETAMINOPHEN 325 MG TAB PO PRN ×2 (02:28→22:10)
[2017-04-28] MEDS: INSULIN ASPART SUPPLEMENTAL SCALE SQ SCH ×4 (03:52→21:00)
[2017-04-28 05:11] LABS: HEMATOCRIT 22.4 % (35.0-46.0); HEMOGLOBIN 7.5 GM/DL (11.6-15.3); MEAN CELL VOLUME 95.5 FL (80.0-100.0); MEAN CORPUSCULAR HGB CONC 33.5 % (32.0-36.0); MEAN PLATELET VOLUME 8.7 FL (7.0-11.0); PLATELET COUNT 151 TH/MM3 (150-450); RED BLOOD COUNT 2.35 MIL/MM3 (4.00-5.30); RED CELL DISTRIBUTION WIDTH 13.7 % (11.6-17.2); WHITE BLOOD COUNT 10.8 TH/MM3 (4.0-11.0)
[2017-04-28 05:17] LABS: BICARBONATE 28.5 MEQ/L (21.0-32.0); CREATININE 0.43 MG/DL (0.50-1.00); MAGNESIUM 2.1 MG/DL (1.5-2.5); PHOSPHORUS 0.9 MG/DL (2.5-4.9)
[2017-04-28] MEDS: MANNITOL 12.5 GM/50 ML VIAL IV SCH ×2 (06:00→12:00)
--- NOTE | 2017-04-28 07:29 | RADRPT ---
EXAM DATE/TIME: 04/28/2017 06:58 [facility] COMPARISON: CHEST SINGLE AP, April 23, 2017, 8:43. INDICATIONS : Shortness of breath. MEDICAL HISTORY : Hypertension. Cerebrovascular disease. Diabetes. SURGICAL HISTORY : Left hip trochanteric nail. ENCOUNTER: Subsequent ACUITY: 1 week PAIN SCORE: Non-responsive. LOCATION: Bilateral chest FINDINGS: A single view of the chest demonstrates worsening bibasilar densities. Nasogastric tube with tip in s tomach. Heart borderline enlarged. The cardiomediastinal contours are unremarkable. Osseous structur es are intact. CONCLUSION: 1. Bibasilar densities likely atelectasis. 2. Borderline cardiomegaly. Benja Ramsey MD on April 28, 2017 at 7:27 Board Certified Radiologist. This report was verified electronically.
[2017-04-28] MEDS: CHOLECALCIFEROL (VIT D3) 5000 UNIT CAP PO SCH (09:23)
[2017-04-28] MEDS: SODIUM CHLORIDE 0.9% FLUSH 5 ML FLUSH IV FLUSH SCH ×2 (09:24→21:00)
[2017-04-28] MEDS: CALCIUM/VITAMIN D 250 MG/125 U TAB PO SCH ×3 (09:24→17:28)
[2017-04-28] MEDS: DOCUSATE SODIUM 50 MG/SENNA 8.6 MG TAB PO SCH ×2 (09:24→22:09)
[2017-04-28] MEDS: ASPIRIN 325 MG TAB DOBHOFF SCH (09:24)
[2017-04-28] MEDS: INSULIN DETEMIR 100 UNITS/ML VIAL SQ SCH ×2 (09:39→21:00)
--- NOTE | 2017-04-28 09:44 | HHI.CCPN ---
Subjective Remarks/Hospital Course 04/24: 76-year-old female with a medical history significant for prior stroke, diabetes mellitus who was admitted with DKA and a hip fracture for which she underwent ORIF on 04/21. Patient developed altered mental status and was last noted to be okay around 5:30 AM. Subsequently there was a change in her mental status and she was noted to not be moving her right side for which stroke alert was called. Head CT showed large left MCA territory ischemic infarct with edema. Patient was transferred to the ICU by family medicine service in the critical care consult was requested. I evaluated the patient following arrival to the ICU. At that time she was laying in bed with her eyes open however not following commands and had a dense right hemiplegia. Patient was also evaluated by Dr. Malave from neurology. I further discussed current event with patient's daughter following her arrival to the ICU. Per the daughter patient has been living with her since her stroke in 2014 and does ambulate however has been having problems with memory and incontinence as well as gait difficulties. She does not feel patient would want intubation or tracheostomy or PEG tube. 04/25: Patient remains encephalopathic, awake though not following commands consistently. Dense right hemiplegia persists. Appears to be awake enough to protect airway currently. Patient's daughter rescinded DNR and made a full code last evening. 04/26: Remains encephalopathic, not following commands. On Dobbhoff for tube feeds at 30 cc per hour. Had urinary retention and drained 2 L of urine after placing Leavitt catheter today. CT head done this morning with large left MCA territory infarct with left to right midline shift and significant cerebral edema. Hyperglycemia noted. Patient given mannitol earlier for increasing cerebral edema. 04/27: Remains encephalopathic, not following commands. On Dobbhoff tube feeds at 30 cc per hour. When into A. fib with RVR last night which responded with Lopressor 5 mg IV 1 dose. 04/28: Remains encephalopathic, arousable, not following commands. Moves left upper X Trina spontaneously. Tolerating Dobbhoff tube feeds. Remains on nasal cannula. Objective Vital Signs Date Time Temp Pulse Resp B/P (MAP) Pulse Ox O2 Delivery O2 Flow Rate FiO2 04/28/17 07:46 92 Nasal Cannula 4.00 04/28/17 06:00 92 04/28/17 04:00 97.8 22 98/56 (70) 04/25/17 09:11 21 Intake and Output 04/28/17 04/28/17 04/29/17 08:00 16:00 00:00 Intake Total 887 ml Output Total 500 ml Balance 387 ml Result Diagram: 04/28/17 0400 04/28/17 0400 Imaging Last Impressions Head CT 04/24/17 0000 Signed Impressions: Service Date/Time: April 08:42 - CONCLUSION: 1. There is a large left MCA infarct. There is edema diffusely throughout the left MCA distribution. This would suggest completed infarct. The case was discussed with Dr. Ross. We did not feel the patient was a candidate for intracranial intervention due to the completed appearance of the infarct. 2. There is an old , encephalomalacic infarct involving the watershed distribution posteriorly on the left. Arnie Middleton MD Carotid Artery Ultrasound 04/24/17 0000 Signed Impressions: Service Date/Time: April 09:45 - CONCLUSION: 1. No hemodynamically significant carotid artery stenosis. Arnie Middleton MD Chest X-Ray 04/23/17 0000 Signed Impressions: Service Date/Time: Sunday, April 23, 2017 08:43 - CONCLUSION: Mild chronic interstitial changes. No acute abnormality. Deangelo Wren Jr., MD Hip X-Ray 04/21/17 0000 Signed Impressions: Service Date/Time: Friday, April 21, 2017 11:36 - CONCLUSION: Fluoroscopic images during placement of intramedullary siomara left femur. Benja Ramsey MD Hip and Pelvis X-Ray 04/20/17 0946 Signed Impressions: Service Date/Time: Thursday, April 20, 2017 10:36 - CONCLUSION: Mildly displaced intertrochanteric fracture. Benja Ramsey MD Objective Remarks HEENT/Neuro: Pallor present. No icterus, tongue moist, ARLEEN, drowsy, barely arousable, has spontaneous eye opening. Not following commands. Nonverbal. Dense right hemiplegia noted. Localizes with left upper extremity. Neck: No JVD Chest/pulmonary: Good air entry bilaterally, no wheezing or crackles. Cardiovascular: S1-S2 regular no gallop or murmur GI/abdomen: Soft, nontender, bowel sounds present. Extremities: Warm bilaterally, no edema. Incision site over left hip ORIF site clean dry and intact. A/P Assessment and Plan 76-year-old female with: Large left MCA territory ischemic infarct Cerebral edema with midline shift Encephalopathy Right hemiplegia Left Hip fracture status post ORIF (04/21) Diabetes mellitus Prior stroke Urinary retention Plan: Neuro: Follow neuro status. Aspirin per Dr. Malave from neurology who evaluated the patient. Patient not a candidate for thrombolysis per discussion with neurology and radiology. If cerebral edema/ neurologic status worsens patient would require endotracheal intubation and hyperventilation. Repeat head CT per neurology. Mannitol 12.5 g IV every 6 hourly for cerebral edema. Follow serial osmolality. Cardiovascular: IV hydration, watch for hypotension. Antihypertensives to keep systolic blood pressure less than to 180 mmHg Pulmonary: Supplemental O2. May require endotracheal intubation for airway protection. GI/liver: Dobbhoff for tube feedings and medications. Endocrine: Insulin sliding scale. Continue Levemir. /renal: Strict intake output, monitor and replete electrolytes, follow BUN/ creatinine. Leavitt catheter placed for urinary retention on 04/26. Heme: Follow CBC and coags. ID: No antibiotics at this time Prophylaxis: SCDs. Hold Lovenox/heparin in view of large stroke with concern for hemorrhagic transformation. I have explained to patient's daughter that there is a strong possibility that patient will need intubation possible tracheostomy and PEG tube placement and will be bedbound and may require mcfp placement in view of extent of her stroke. This was reiterated on 04/26/2017 and patient's daughter was going to talk to other family members to decide further course of action. Being followed by palliative care team. Discussed with family medicine team, [facility]. Daughter wishes to continue full CODE STATUS at this time. Condition critical. Prognosis appears poor. Patient at high risk for deterioration. Darrel Saleh MD Apr 28, 2017 09:44
--- NOTE | 2017-04-28 12:26 | HHI.HCPN ---
Reason for visit a. To assist with evaluation and management of symptoms including: Debility and pain. b. To assist medical decision maker(s) with: better understanding of current medical conditions; weighing benefits/burdens of medical treatment options; making medical treatment decisions. . Subjective/Interval History Mrs. Hein date a 76-year-old female with a past medical history of hypertension , diabetes mellitus and CVA who presented to the ED on 04/20/17 via EMS for evaluation of after a fall. Upon ED admission, random glucose 559. Patient underwent Left hip reduction and intramedullary nail fixation on 04/21/17. Clinical course complicated by large left MCA infarct with diffuse edema throughout the left MCA distribution. Neurology, Dr. Malave consulted. Patient not a candidate for intervention, not a candidate for IV TPA. As per neurology "[place] 4Id the prognosis with a stroke of the size is poor". Palliative care consulted for further clarifications of goals of care given poor prognosis. Patient seen in ICU, resting in bed in moderate distress. Unresponsive to verbal or tactile stimuli, briefly opening eyes. Not following commands. Persistent right-sided hemiparesis noted. Head CT 04/26/17 revealing continued large left MCA stroke with significant edema and shift. Pending follow up CT scan to reevaluate. Patient with episode of A. fib with RVR over the weekend, responded to Lopressor. Dobbhoff tube feedings ongoing. Patient was placed on mannitol for worsening brain edema. Laboratory workup today revealing WBC 10.8 , Hgb 7.5, platelet count 151. BUN/creatinine 32/0.43. Patient remains afebrile, tachycardic with heart rate in the 110s. O2 via nasal cannula at 4 L. Telephone conversation with patient's daughter Trice Salvador. Medical update provided. Discussed overall very poor prognosis for a meaningful neurological recovery or or long-term survival. Discussed results of CT scan of Friday. Discussed continuation of aggressive management vs comfort-directed care with hospice. Discussed that if goals of treatment remain aggressive, patient will likely require intubation/tracheostomy and PEG tube. Discussed patient's long- term care needs given the above. Discussed CODE STATUS given overall poor prognosis. Daughter receptive to palliative care meeting tomorrow 04/29/17 at 11 AM. Verbalized considering CODE STATUS at this time, left community DNR bedside. Case discussed with bedside RN Sonal. . Family/friend interactions See interval note. . Advance Directives Living Will: Never completed Health Care Surrogate: Never completed Durable Power of Florist'S Decorator: Never completed Advance Directive Specifics Health Care Surrogate(s): No advance directives completed. As per [place] statute, healthcare proxy decision making falls to patient's only daughter Norma Salvador. . Documented care wishes: No living will completed. . Significant change in goals: Goals of care remain unchanged. . Objective Vital Signs Date Time Temp Pulse Resp B/P (MAP) Pulse Ox O2 Delivery O2 Flow Rate FiO2 04/28/17 07:46 92 Nasal Cannula 4.00 04/28/17 06:00 92 04/28/17 04:00 88 04/28/17 04:00 97.8 88 22 98/56 (70) 99 04/28/17 02:00 99 04/28/17 00:00 96 04/28/17 00:00 99.2 96 23 133/66 (88) 94 04/27/17 22:00 118 04/27/17 20:00 120 04/27/17 20:00 98.8 120 25 138/72 (94) 96 04/27/17 18:00 120 04/27/17 16:00 99.7 124 26 142/78 (99) 95 04/27/17 16:00 124 04/27/17 14:00 120 Intake & Output 04/28/17 04/28/17 06:59 18:59 Intake Total 887 ml Output Total 500 ml Balance 387 ml IV Total 767 ml Other 120 ml Output Urine Total 500 ml # Bowel Movements 1 Physical Exam CONSTITUTIONAL/GENERAL: This is an elderly female resting in bed in no acute distress. Minimally responsive, intermittently opening eyes but not to command. TUBES/LINES/DRAINS: PIV's. Nasal cannula, Dobbhoff to right nare. Leavitt catheter, left soft wrist restraint. SKIN: No jaundice, rashes, or lesions. Ecchymoses on upper extremities. Skin temperature appropriate. Not diaphoretic. Surgical incision to left hip, covered in dressing. Dressing dry and intact. HEAD: Atraumatic. Normocephalic. EYES: Pupils equal and round and reactive. No scleral icterus. No injection or drainage. Left side gaze. ENT: Unable to evaluate hearing secondary to clinical condition. Nose without bleeding or purulent drainage. Moist oral mucosa. Dobbhoff to right nare. NECK: Trachea midline. Supple. CARDIOVASCULAR: Regular rate and rhythm. Peripheral pulses symmetric. RESPIRATORY/CHEST: Symmetric, unlabored respirations. Coarse bilaterally. GASTROINTESTINAL: Abdomen soft, round, mildly distended. Bowel sounds present. GENITOURINARY: Without palpable bladder distension. MUSCULOSKELETAL: Extremities without clubbing, cyanosis, or edema. NEUROLOGICAL: Eyes open, not tracking. Right-sided hemiparesis. Not following commands. PSYCHIATRIC: Unable to evaluate secondary to clinical condition. . Diagnostic Tests Laboratory Laboratory Tests Test 04/26/17 04:15 04/26/17 12:18 04/26/17 12:20 04/26/17 18:30 White Blood Count 11.3 TH/MM3 (4.0-11.0) Red Blood Count 3.12 MIL/MM3 (4.00-5.30) Hemoglobin 9.6 GM/DL (11.6-15.3) Hematocrit 29.7 % (35.0-46.0) Mean Corpuscular Volume 95.2 FL (80.0-100.0) Mean Corpuscular Hemoglobin 30.7 PG (27.0-34.0) Mean Corpuscular Hemoglobin Concent 32.2 % (32.0-36.0) Red Cell Distribution Width 13.6 % (11.6-17.2) Platelet Count 195 TH/MM3 (150-450) Mean Platelet Volume 9.3 FL (7.0-11.0) Hematology Comments Prothrombin Time 12.8 SEC (9.8-11.6) Prothromb Time International Ratio 1.2 RATIO Activated Partial Thromboplast Time 23.6 SEC (24.3-30.1) Blood Urea Nitrogen 36 MG/DL (7-18) 40 MG/DL (7-18) Creatinine 0.61 MG/DL (0.50-1.00) 0.42 MG/DL (0.50-1.00) Random Glucose 264 MG/DL (74-106) 123 MG/DL (74-106) Total Protein 6.0 GM/DL (6.4-8.2) Albumin 2.3 GM/DL (3.4-5.0) Calcium Level 8.8 MG/DL (8.5-10.1) 8.6 MG/DL (8.5-10.1) Alkaline Phosphatase 109 U/L (45-117) Aspartate Amino Transf (AST/SGOT) 23 U/L (15-37) Alanine Aminotransferase (ALT/SGPT) 14 U/L (10-53) Total Bilirubin 0.6 MG/DL (0.2-1.0) Sodium Level 146 MEQ/L (136-145) 151 MEQ/L (136-145) Potassium Level 3.4 MEQ/L (3.5-5.1) 3.1 MEQ/L (3.5-5.1) Chloride Level 117 MEQ/L (98-107) 120 MEQ/L (98-107) Carbon Dioxide Level 15.9 MEQ/L (21.0-32.0) 25.5 MEQ/L (21.0-32.0) Anion Gap 13 MEQ/L (5-15) 6 MEQ/L (5-15) Estimat Glomerular Filtration Rate 96 ML/MIN (>89) 147 ML/MIN (>89) Serum Osmolality 331 MOSM/KG (275-295) Urine Color YELLOW (YELLW/STRAW) Urine Turbidity HAZY (CLEAR) Urine pH 6.5 (5.0-8.5) Urine Specific [place] 1.014 (1.002-1.035) Urine Protein 30 mg/dL (NEG-TRACE) Urine Glucose (UA) 1000 mg/dL (NEG) Urine Ketones 40 mg/dL (NEG) Urine Occult Blood SMALL (NEG) Urine Nitrite NEG (NEG) Urine Bilirubin NEG (NEG) Urine Urobilinogen LESS THAN 2.0 MG/DL (LESS Urine Leukocyte Esterase LARGE (NEG) Urine RBC 24 /hpf (0-3) Urine WBC /hpf (0-5) Urine Bacteria RARE /hpf (NONE) Urine Yeast (Budding) FEW (NONE) Microscopic Urinalysis Comment CATH-CULTURE IND Test 04/26/17 20:59 04/27/17 00:45 04/27/17 05:30 04/27/17 12:30 Serum Osmolality 325 MOSM/KG (275-295) 318 MOSM/KG (275-295) 320 MOSM/KG (275-295) 326 MOSM/KG (275-295) White Blood Count 10.4 TH/MM3 (4.0-11.0) Red Blood Count 2.55 MIL/MM3 (4.00-5.30) Hemoglobin 8.2 GM/DL (11.6-15.3) Hematocrit 24.2 % (35.0-46.0) Mean Corpuscular Volume 95.0 FL (80.0-100.0) Mean Corpuscular Hemoglobin 32.3 PG (27.0-34.0) Mean Corpuscular Hemoglobin Concent 34.0 % (32.0-36.0) Red Cell Distribution Width 13.9 % (11.6-17.2) Platelet Count 177 TH/MM3 (150-450) Mean Platelet Volume 8.6 FL (7.0-11.0) Neutrophils (%) (Auto) 80.9 % (16.0-70.0) Lymphocytes (%) (Auto) 7.6 % (9.0-44.0) Monocytes (%) (Auto) 11.4 % (0.0-8.0) Eosinophils (%) (Auto) 0.1 % (0.0-4.0) Basophils (%) (Auto) 0.0 % (0.0-2.0) Neutrophils # (Auto) 8.4 TH/MM3 (1.8-7.7) Lymphocytes # (Auto) 0.8 TH/MM3 (1.0-4.8) Monocytes # (Auto) 1.2 TH/MM3 (0-0.9) Eosinophils # (Auto) 0.0 TH/MM3 (0-0.4) Basophils # (Auto) 0.0 TH/MM3 (0-0.2) CBC Comment DIFF FINAL Differential Comment Blood Urea Nitrogen 37 MG/DL (7-18) Creatinine 0.46 MG/DL (0.50-1.00) Random Glucose 56 MG/DL (74-106) Calcium Level 8.5 MG/DL (8.5-10.1) Phosphorus Level 1.1 MG/DL (2.5-4.9) Magnesium Level 2.3 MG/DL (1.5-2.5) Sodium Level 155 MEQ/L (136-145) Potassium Level 3.1 MEQ/L (3.5-5.1) Chloride Level 122 MEQ/L (98-107) Carbon Dioxide Level 25.4 MEQ/L (21.0-32.0) Anion Gap 8 MEQ/L (5-15) Estimat Glomerular Filtration Rate 133 ML/MIN (>89) Test 04/27/17 17:50 04/27/17 22:40 04/28/17 04:00 Serum Osmolality 323 MOSM/KG (275-295) 322 MOSM/KG (275-295) 322 MOSM/KG (275-295) Potassium Level 4.1 MEQ/L (3.5-5.1) 3.6 MEQ/L (3.5-5.1) Phosphorus Level 1.9 MG/DL (2.5-4.9) 0.9 MG/DL (2.5-4.9) White Blood Count 10.8 TH/MM3 (4.0-11.0) Red Blood Count 2.35 MIL/MM3 (4.00-5.30) Hemoglobin 7.5 GM/DL (11.6-15.3) Hematocrit 22.4 % (35.0-46.0) Mean Corpuscular Volume 95.5 FL (80.0-100.0) Mean Corpuscular Hemoglobin 32.0 PG (27.0-34.0) Mean Corpuscular Hemoglobin Concent 33.5 % (32.0-36.0) Red Cell Distribution Width 13.7 % (11.6-17.2) Platelet Count 151 TH/MM3 (150-450) Mean Platelet Volume 8.7 FL (7.0-11.0) Blood Urea Nitrogen 32 MG/DL (7-18) Creatinine 0.43 MG/DL (0.50-1.00) Random Glucose 116 MG/DL (74-106) Calcium Level 8.0 MG/DL (8.5-10.1) Magnesium Level 2.1 MG/DL (1.5-2.5) Sodium Level 154 MEQ/L (136-145) Chloride Level 120 MEQ/L (98-107) Carbon Dioxide Level 28.5 MEQ/L (21.0-32.0) Anion Gap 6 MEQ/L (5-15) Estimat Glomerular Filtration Rate 144 ML/MIN (>89) Result Diagram: 04/28/1739904/28/17 040 Microbiology Microbiology Date/Time Source Procedure Growth Status 04/26/17 12:20 Urine Catheterized Urine Urine Culture - Preliminary Yeast-Id To Follow Resulted Imaging Last 48 hours Impressions Chest X-Ray 04/28/17 0700 Signed Impressions: Service Date/Time: Friday, April 28, 2017 06:58 - CONCLUSION: 1. Bibasilar densities likely atelectasis. 2. Borderline cardiomegaly. Benja Ramsey MD Procedures * 04/21/17 -Left hip reduction and intramedullary nail fixation . Assessment and Plan Disease Oriented Problem List: (1) Acute CVA (cerebrovascular accident) (2) Hip fracture (3) Hypertension Symptom Scale: (1) Pain 0-10 Scale: Unable to quantify Comment: Secondary to recent surgical intervention (2) Debility 0-10 Scale: Unable to quantify Comment: Progressive. Pertinent Non-Medical Issues Psychosocial: Patient is originally from [facility]. Residing in [place] up until 2013 she moved to [place] to live with only daughter Trice. Patient is a , in 2006. Spiritual: No sabianist affiliation. Legal: No advance directives completed. Ethical issues impacting care: Patient unable to participating in medical decision-making secondary to clinical condition. Patient's daughter acting as healthcare proxy decision maker. . Important Contacts Daughter Norma Salvador . . Prognosis Mrs. Hein needs a 76-year-old female with a past medical history of hypertension, diabetes mellitus and prior CVA. Presented with left hip fracture , underwent ORIF. Clinical course complicated by large left MCA infarct with edema. Overall prognosis is poor for a meaningful neurological recovery or long -term survival given acute stroke, chronic ongoing comorbidities and advanced age. Patient appears hospice appropriate should family elects comfort-directed care. . Code Status: Full Code Plan * CODE STATUS: FULL CODE. Code status readdressed 04/28/17. Risks, benefits and limitations of CPR, intubation and mechanical ventilation has been discussed at length with daughter Norma. * HEALTHCARE DECISION-MAKING: Patient unable to participate in medical decision- making secondary to clinical condition, minimally responsive post CVA. No advance directives completed, patient is . As per [place] statute, healthcare proxy decision-making falls to patient's only daughter Trice Salvador. * GOALS OF CARE: 04/28/17, daughter verbalized wishing to pursue aggressive care at this time while ongoing goals of care discussion with family. Hospice philosophy and benefits has been introduced previously at length. Daughter inquiring today regarding hospice. Daughter in agreement with palliative care follow up meeting tomorrow 04/29/17 at 11 AM. Code status readdressed today, daughter verbalized considering no code status. Community DNR left at bedside. * SYMPTOMS: = Pain, secondary to recent surgical intervention. Morphine IV available as needed. = Debility, progressive. Likely to continue to worsen given recent acute stroke. * Case discussed with bedside RN Bucky. * Palliative care contact information has been provided to patient's daughter. * Ongoing emotional support and active listening provided. * Palliative care will continue to follow-up for further clarifications of goals of care as patient's clinical condition continues to evolve. . Time Spent Total Floor Time (mins): 32 (Total time to include review of medical records, physical exam, telephone conversation with daughter regarding goals of care and case discussion with bedside RN.) >50% Counseling/Coord of Care: Yes Attestation To help prompt me to consider important information that might be impacting today's encounter and assessment, information from prior notes written by myself or my colleagues may have been "brought forward" into today's note. My signature on this note, however, is an attestation that I personally performed the exam, history, and/or decision-making noted today, and, unless otherwise indicated, the interactions with patient, family, and staff as well as the review of records all occurred today. I also attest that the listed assessment and stated plan reflect my best clinical judgment today based on the combination of historical information, prior notes, and today's exam/ interactions. When time spent is documented, it refers only to time spent today by the signer, or if indicated, combined time spent today by collaborating physician/nurse practitioner. Ashly Steven Apr 28, 2017 12:26
--- NOTE | 2017-04-28 13:45 | RADRPT ---
EXAM DATE/TIME: 04/28/2017 10:00 [facility] COMPARISON: CT BRAIN W & W/O CONTRAST, April 26, 2017, 4:26. CT BRAIN W/O CONTRAST, April 24, 2017, 8:42. INDICATIONS : Altered mental status, recent stroke. RADIATION DOSE: 36.06 CTDIvol (mGy) ; Patient motion MEDICAL HISTORY : Stroke. Hypertension. diabetes SURGICAL HISTORY : None. ENCOUNTER: Subsequent ACUITY: 1 day PAIN SCALE: Non-responsive LOCATION: Bilateral head TECHNIQUE: Multiple contiguous axial images were obtained of the head. Using automated exposure control and adj ustment of the mA and/or kV according to patient size, radiation dose was kept as low as reasonably a chievable to obtain optimal diagnostic quality images. DICOM format image data is available electro nically for review and comparison. FINDINGS: Extensive motion artifact is present. There is a larged infarct involving the left hemisphere with 1 .4 centers of left to right shift. The right hemisphere is unremarkable. There is no parenchymal hemorrhage.. Posterior fossa is normal. CONCLUSION: Increasing edema left hemisphere with 1.4 cm left to right shift. Ricardo Middleton MD FACR on April 28, 2017 at 13:39 Board Certified Radiologist. This report was verified electronically.
[2017-04-28] MEDS: DEXTROSE 50% IN WATER 50 ML SYRINGE IV PRN (15:50)
[2017-04-28 16:56] LABS: HEMATOCRIT 25.9 % (35.0-46.0); HEMOGLOBIN 8.7 GM/DL (11.6-15.3)
[2017-04-28] MEDS: PANTOPRAZOLE SODIUM 40 MG VIAL IV PUSH SCH (17:28)
[2017-04-28] MEDS ORDERED: SODIUM CHLOR 0.9% 250 ML INJ 250 ML IV ONE (18:00)
[2017-04-28] MEDS: MORPHINE SULFATE 4 MG/ML INJ IV PRN (18:15)
--- NOTE | 2017-04-28 18:33 | HHI.PR ---
Review/Management Diagnosis large left MCA stroke--prognosis poor. I discussed this with her daughter in detail Diagnosis/Plan: Subjective Subjective Comments No acute events reported Active Medications Current Medications Medications (Trade) Dose Ordered Sig/Zeferino Route Start Time Stop Time Status Last Admin (Tylenol) 650 mg Q6H PRN PO 04/20/17 14:30 04/28/17 02:28 (Zofran Inj) 4 mg Q6H PRN IV PUSH 04/20/17 15:00 (Morphine Inj) 1 mg Q3H PRN IV 04/20/17 17:15 04/28/17 18:15 (Morphine Inj) 2 mg Q3H PRN IV 04/20/17 17:15 04/26/17 23:29 (Narcan Inj) 0.4 mg UNSCH PRN IV 04/20/17 17:15 (Nalini-Colace) 1 tab BID PO 04/20/17 21:00 04/28/17 09:24 (Milk Of Magnesia Liq) 30 ml Q12H PRN PO 04/20/17 20:30 (Senokot) 17.2 mg Q12H PRN PO 04/20/17 20:30 04/23/17 22:55 (Dulcolax Supp) 10 mg DAILY PRN RECTAL 04/20/17 20:30 (Lactulose Liq) 30 ml DAILY PRN PO 04/20/17 20:30 (Oscal-D 250-125) 250 mg TID PO 04/21/17 13:00 04/28/17 17:28 ([place] 7.5-325 Mg) 1 tab Q3H PRN PO 04/21/17 11:45 04/23/17 22:56 (Vitamin D3) 5,000 units DAILY PO 04/22/17 09:00 04/28/17 09:23 (NS Flush) 2 ml BID IV FLUSH 04/24/17 21:00 04/28/17 09:24 (NS Flush) 2 ml UNSCH PRN IV FLUSH 04/24/17 09:30 Sodium Chloride 1,000 ml @ 70 mls/hr [id number] IV 04/24/17 09:25 04/27/17 23:19 (Glucagon Inj) 1 mg UNSCH PRN IM/SQ 04/24/17 18:15 (Mannitol Inj) 12.5 gm Q6HR IV 04/26/17 12:00 04/26/17 11:06 (Aspirin) 325 mg DAILY DOBHOFF 04/27/17 09:00 04/28/17 09:24 (D50w (Syr) Inj) 25 ml UNSCH PRN IV 04/26/17 20:30 04/28/17 15:50 (Lopressor Inj) 5 mg Q5M PRN IV PUSH 04/27/17 04:00 04/27/17 03:53 Potassium Chloride 100 ml @ 50 mls/hr Q2H PRN IV 04/27/17 08:45 Potassium Chloride 100 ml @ 50 mls/hr Q2H PRN IV 04/27/17 08:45 04/27/17 16:44 (K-Lyte Cl Eff) 50 meq UNSCH PRN PO 04/27/17 08:45 Potassium Chloride 100 ml @ 25 mls/hr UNSCH PRN IV 04/27/17 08:45 Potassium Chloride 100 ml @ 50 mls/hr Q2H PRN IV 04/27/17 08:45 Magnesium Sulfate 4 gm/Sodium Chloride 100 ml @ 50 mls/hr UNSCH PRN IV 04/27/17 08:45 (Mag-Ox) 800 mg UNSCH PRN PO 04/27/17 08:45 Magnesium Sulfate 2 gm/Sodium Chloride 100 ml @ 50 mls/hr UNSCH PRN IV 04/27/17 08:45 (K-Phos) 2,000 mg Q4H PRN PO 04/27/17 08:45 04/28/17 15:38 Sodium Phosphate 30 mmol/Sodium Chloride 250 ml @ 42 mls/hr UNSCH PRN IV 04/27/17 08:45 04/27/17 23:59 (K-Phos) 2,000 mg UNSCH PRN PO/TUBE 04/27/17 08:45 Potassium Phosphate 30 mmol/ Sodium Chloride 260 ml @ 42 mls/hr UNSCH PRN IV 04/27/17 08:45 04/27/17 10:49 (Levemir Inj) 10 units BID SQ 04/28/17 21:00 (Protonix Inj) 40 mg Q24H IV PUSH 04/28/17 17:00 04/28/17 17:28 (NovoLOG SUPPLEMENTAL SCALE) 1 ACHS SLIDING SCALE SQ 04/28/17 16:00 Sodium Chloride 250 ml @ 15 mls/hr ONCE ONCE IV 04/28/17 18:00 04/29/17 10:39 Allergies Allergies Coded Allergies No Known Allergies (Unverified04/20/17) Exam I&O / VS Vital Signs Date Time Temp Pulse Resp B/P (MAP) Pulse Ox O2 Delivery O2 Flow Rate FiO2 04/28/17 08:00 93 04/28/17 08:00 98.3 95 19 153/72 (99) 93 04/28/17 07:46 92 Nasal Cannula 4.00 04/28/17 06:00 92 04/28/17 04:00 88 04/28/17 04:00 97.8 88 22 98/56 (70) 99 04/28/17 02:00 99 04/28/17 00:00 96 04/28/17 00:00 99.2 96 23 133/66 (88) 94 04/27/17 22:00 118 04/27/17 20:00 120 04/27/17 20:00 98.8 120 25 138/72 (94) 96 Respiratory: Lungs CTA, Non-labored respirations, BS equal Cardiology: Normal rate (tachycardic but regular), Regular Rhythm Musculoskeletal: ROM (within normal limits) Exam Comments nonresponsive CN--left conjugate gaze deviation. PERRL, Right upper motor neuron CN 7 palsey. MOTOR--no spontaneous movement RUE or RLE. with draws LUE and LLE Objective Radiology Results CT brain--large left MCA stroke with more edema and mass effect Micro and Labs Laboratory Tests Test 04/27/17 22:40 04/28/17 04:00 04/28/17 12:57 04/28/17 16:34 Potassium Level 4.1 3.6 Serum Osmolality 322 322 324 Phosphorus Level 1.9 0.9 2.0 White Blood Count 10.8 Red Blood Count 2.35 Hemoglobin 7.5 8.7 Hematocrit 22.4 25.9 Mean Corpuscular Volume 95.5 Mean Corpuscular Hemoglobin 32.0 Mean Corpuscular Hemoglobin Concent 33.5 Red Cell Distribution Width 13.7 Platelet Count 151 Mean Platelet Volume 8.7 Blood Urea Nitrogen 32 Creatinine 0.43 Random Glucose 116 Calcium Level 8.0 Magnesium Level 2.1 Sodium Level 154 Chloride Level 120 Carbon Dioxide Level 28.5 Anion Gap 6 Estimat Glomerular Filtration Rate 144 Date/Time Source Procedure Growth Status 04/23/17 18:25 Blood Peripheral Aerobic Blood Culture - Final NO GROWTH IN 5 DAYS Complete 04/23/17 18:25 Blood Peripheral Anaerobic Blood Culture - Final QNS - SEE AEROBE REPORT Complete 04/26/17 12:20 Urine Catheterized Urine Urine Culture - Preliminary Yeast-Id To Follow Resulted Marcio Malave PhD Apr 28, 2017 18:33
--- NOTE | 2017-04-28 19:55 | HHI.FPPN ---
Subjective Remarks Saw and examined the patient this morning. She was easily arousable. Still nonverbal. No acute events reported overnight. (Shandra Braun MD R1) Objective Vitals Vital Signs Date Time Temp Pulse Resp B/P (MAP) Pulse Ox O2 Delivery O2 Flow Rate FiO2 04/28/17 08:00 93 04/28/17 08:00 98.3 95 19 153/72 (99) 93 04/28/17 07:46 92 Nasal Cannula 4.00 04/28/17 06:00 92 04/28/17 04:00 88 04/28/17 04:00 97.8 88 22 98/56 (70) 99 04/28/17 02:00 99 04/28/17 00:00 96 04/28/17 00:00 99.2 96 23 133/66 (88) 94 04/27/17 22:00 118 04/27/17 20:00 120 04/27/17 20:00 98.8 120 25 138/72 (94) 96 I/O 04/27/17 04/27/17 04/27/17 04/28/17 04/28/17 04/28/17 06:59 14:59 22:59 06:59 14:59 22:59 Intake Total 865 ml 200 ml 800 ml 887 ml Output Total 350 ml 500 ml 500 ml Balance 515 ml 200 ml 300 ml 387 ml IV Total 805 ml 200 ml 800 ml 767 ml Other 60 ml 120 ml Output Urine Total 350 ml 500 ml 500 ml Stool Total 0 ml # Bowel Movements 0 1 (Shandra Braun MD R1) Result Diagram: 04/28/17 1634 04/28/17 0400 Imaging Last Impressions Head CT 04/28/17 0800 Signed Impressions: Service Date/Time: Friday, April 28, 2017 10:00 - CONCLUSION: Increasing edema left hemisphere with 1.4 cm left to right shift. Ricardo Middleton MD FACR Chest X-Ray 04/28/17 0700 Signed Impressions: Service Date/Time: Friday, April 28, 2017 06:58 - CONCLUSION: 1. Bibasilar densities likely atelectasis. 2. Borderline cardiomegaly. Benja Ramsey MD Abdomen X-Ray 04/25/17 0000 Signed Impressions: Service Date/Time: Tuesday, April 25, 2017 14:56 - CONCLUSION: 1. Feeding tube distal tip in the gastric body. 2. Partially visualized calcified uterine fibroids. Obdulio Sam MD Carotid Artery Ultrasound 04/24/17 0000 Signed Impressions: Service Date/Time: April 09:45 - CONCLUSION: 1. No hemodynamically significant carotid artery stenosis. Arnie Middleton MD Hip X-Ray 04/21/17 0000 Signed Impressions: Service Date/Time: Friday, April 21, 2017 11:36 - CONCLUSION: Fluoroscopic images during placement of intramedullary siomara left femur. Benja Ramsey MD Hip and Pelvis X-Ray 04/20/17 0946 Signed Impressions: Service Date/Time: Thursday, April 20, 2017 10:36 - CONCLUSION: Mildly displaced intertrochanteric fracture. Benja Ramsey MD Objective Remarks CONSTITUTIONAL/GEN: Nonverbal, lying in bed. LUNGS: coarse breath sounds CARDIOVASCULAR: RR without murmur or gallop. No edema. GI/ABD: soft without masses, without organomegaly. NEURO: Neglecting right side. Minimal response to stimulation. Right hemiplegia [facility]C: Bandages on lateral left hip and thigh are clean dry and intact. (Shandra Braun MD R1) A/P Assessment and Plan 76 y/o female with HTN, DM, CVA admitted for DKA and hip fracture. Now with large MCA stroke. Neuro and security and compliance project manager consulted. Working with palliative care for goals of care. Discharge Planning Pending stroke progression and discussion for goals of care (Shandra Braun MD R1) Attending Attestation Patient seen and examined. Case reviewed and discussed Agree with plan of care as discussed with me and documented in the resident note. Appreciate CCM, CT with continued progression Poor prognosis Monitor closely (Angélica Malik MD) Problem List: (1) Acute CVA (cerebrovascular accident) ICD Codes: I63.9 - Cerebral infarction, unspecified Status: Acute Plan: Patient found minimally responsive with neurological deficits around 0820 04/24. Stat CT of head was ordered, which showed large left MCA infarct. Diffuse edema throughout the left MCA distribution, suggest completed infarct. This was discussed and was not a candidate for intracranial intervention. Repeat CT 04/28 shows increasing edema left hemisphere with 1.4cm left to right shift. Echocardiogram- The left ventricular systolic function is low normal with an estimated ejection fraction in the range of 50-55%. Mild concentric left ventricular hypertrophy. Normal left ventricular size. [id number] mitral valve regurgitation. Carotid Artery US- No hemodynamically significant carotid stenosis -May hold Glucerna 1.5 mLs for diet via NG tube due to concerns about aspiration and breathing. -Comic Artist consult for management and recs -Consult palliative care-appreciate recs -Case discussed with daughter in-person about goals of care, limited treatment options, and poor prognosis. -Daughter continues to want aggressive care, meeting with palliative tomorrow at 11AM -Neurology consulted-appreciate recs -Does not recommend a CTA at this time -Rectal ASA -Consulted security and compliance project manager, appreciate recs -IV hydration, watch for hypotension. -Keep systolic to less than 220 -Hold hypernatremic IVF due to hyperchloremia, but may be indicated -PICC line order placed for need of hypernatremic NS or insulin drip -D/C'd mannitol due to serum osmolarity greater than 315 -Catheter placed due to urinary retention (2) Type 2 diabetes mellitus ICD Codes: E11.9 - Type 2 diabetes mellitus without complications Status: Chronic Plan: Admitted for DKA which has now resolved. Hemoglobin A1C is 12.9. Diabetes is uncontrolled. - Decreased levemir to 10 units BID due to hypoglycemia - Medium dose insulin sliding scale - Glucerna for NG tube feedings - Regular accuchecks q4H - Continue IV hydration (3) Yeast UTI ICD Codes: B37.49 - Other urogenital candidiasis Status: Acute Plan: UA showed glucose, large number of leukocytes esterase, innumerable WBCs , rare bacteria, and few yeast Urine culture shows yeast -Will not treat at this time (4) Hip fracture ICD Codes: S72.009A - Fracture of unspecified part of neck of unspecified femur , initial encounter for closed fracture Status: Acute Plan: S/P left hip reduction ad intramedullary nail fixation on 04-21-17 -Consult orthopedics-appreciate recs * Cleared for discharge to rehabilitation * WBAT * Daily dressing changes * CM for rehabilitation placement * Follow-up in 2 weeks -Calcium/Vitamin D -Fluids as above -Tylenol, morphine PRN pain (5) Hypertension ICD Codes: I10 - Essential (primary) hypertension Status: Acute Plan: Blood pressure to normal limits on arrival. Daughter states the patient was on lisinopril in the past. -Continue fluids as above -Hold BP meds for permissive HTN (6) Fluids, Electrolytes, and Nutrition Status: Acute Plan: Fluids: IVF Electrolyte: on electrolyte protocol Nutrition: May hold NG tube feedings, Glucerna due to concerns about aspiration , on PPI DVT ppx: SCDs; chemoppx contraindicated to prevent hemorrhage stroke (Shandra Braun MD R1) Problem Qualifiers (1) Type 2 diabetes mellitus: Qualified Codes: E11.9 - Type 2 diabetes mellitus without complications (2) Hip fracture: Qualified Codes: S72.002A - Fracture of unspecified part of neck of left femur , initial encounter for closed fracture (3) Hypertension: Qualified Codes: I10 - Essential (primary) hypertension Shandra Braun MD R1 Apr 28, 2017 19:55 Angélica Malik MD Apr 28, 2017 22:33
[2017-04-29] VITALS (15 sets, daily range): BP systolic 123–161; BP diastolic 56–85; PULSE 64–120; RESP 15–29; TEMP 97.2–102.7; O2SAT 95–100
[2017-04-29] MEDS ORDERED: ACETAMINOPHEN 1000 MG/100 ML VIAL IV ONE (01:00)
[2017-04-29] MEDS: SODIUM CHLOR 0.9% 1000 ML INJ 1,000 ML IV SCH ×2 (03:38→18:04)
[2017-04-29 05:05] LABS: MEAN CELL VOLUME 96.9 FL (80.0-100.0); MEAN CORPUSCULAR HEMOGLOBIN 31.1 PG (27.0-34.0); MEAN CORPUSCULAR HGB CONC 32.1 % (32.0-36.0); MEAN PLATELET VOLUME 8.9 FL (7.0-11.0); PLATELET COUNT 187 TH/MM3 (150-450); RED BLOOD COUNT 2.88 MIL/MM3 (4.00-5.30); RED CELL DISTRIBUTION WIDTH 14.1 % (11.6-17.2); WHITE BLOOD COUNT 14.6 TH/MM3 (4.0-11.0)
[2017-04-29 05:28] LABS: BICARBONATE 26.1 MEQ/L (21.0-32.0); CREATININE 0.48 MG/DL (0.50-1.00); MAGNESIUM 2.2 MG/DL (1.5-2.5); PHOSPHORUS 2.3 MG/DL (2.5-4.9)
[2017-04-29] MEDS: INSULIN ASPART SUPPLEMENTAL SCALE SQ SCH ×4 (06:07→21:44)
[2017-04-29 07:57] LABS: BANDS 26 % (0-6); CORRECTED NUCLEATED RBC 1 /100 WBC (0-0); LYMPHOCYTES 5 % (9-44); METAMYELOCYTES 1 % (0-1); MONOCYTES 3 % (0-8); NEUTROPHIL # MANUAL DIFF 13.4 TH/MM3 (1.8-7.7); NUCLEATED RED BLOOD CELL 1 (0-0); POLYS (SEG NEUTROPHILS) 65 % (16-70)
[2017-04-29] MEDS: ASPIRIN 325 MG TAB DOBHOFF SCH (08:58)
[2017-04-29] MEDS: CALCIUM/VITAMIN D 250 MG/125 U TAB PO SCH ×3 (08:58→18:04)
[2017-04-29] MEDS: CHOLECALCIFEROL (VIT D3) 5000 UNIT CAP PO SCH (08:58)
[2017-04-29] MEDS: DOCUSATE SODIUM 50 MG/SENNA 8.6 MG TAB PO SCH ×2 (08:58→20:51)
[2017-04-29] MEDS: INSULIN DETEMIR 100 UNITS/ML VIAL SQ SCH ×2 (08:59→21:45)
[2017-04-29] MEDS: SODIUM CHLORIDE 0.9% FLUSH 5 ML FLUSH IV FLUSH SCH ×2 (08:59→21:45)
[2017-04-29] MEDS: POTASSIUM CHLOR 20 MEQ PREMIX 100 ML IV PRN ×2 (10:10→12:15)
--- NOTE | 2017-04-29 12:03 | HHI.FPPN ---
Subjective Remarks Saw and examined patient this morning. She was unresponsive and nonverbal. Was informed by the nurse that she went into atrial fibrillation overnight, but immediately responded to Lopressor. (Shandra Braun MD R1) Objective Vitals Vital Signs Date Time Temp Pulse Resp B/P (MAP) Pulse Ox O2 Delivery O2 Flow Rate FiO2 04/29/17 11:20 96 Nasal Cannula 6.00 04/29/17 10:00 100 Partial Non-Rebreather 15.00 04/29/17 10:00 108 04/29/17 09:54 98 Partial Rebreather 12.00 04/29/17 08:00 108 04/29/17 08:00 99.9 108 22 131/71 (91) 100 04/29/17 08:00 100 Non-Rebreather 15.00 04/29/17 06:00 108 04/29/17 04:00 102 04/29/17 04:00 97.2 102 15 150/75 (100) 100 04/29/17 03:35 97 Non-Rebreather 15.00 04/29/17 02:00 108 04/29/17 00:19 100 Non-Rebreather 04/29/17 00:00 102.7 118 28 123/56 (78) 98 04/29/17 00:00 118 04/28/17 22:00 74 04/28/17 20:16 96 Non-Rebreather 04/28/17 20:00 100.5 72 28 121/79 (93) 98 04/28/17 20:00 72 04/28/17 18:00 105 04/28/17 16:00 100 04/28/17 16:00 98.1 100 29 155/72 (99) 98 04/28/17 14:00 99 04/28/17 12:00 98 04/28/17 12:00 98.9 98 27 158/87 (110) 99 I/O 04/28/17 04/28/17 04/28/17 04/29/17 04/29/17 04/29/17 07:00 15:00 23:00 07:00 15:00 23:00 Intake Total 887 ml 25 ml 611 ml 591 ml Output Total 500 ml 450 ml 355 ml Balance 387 ml 25 ml 161 ml 236 ml IV Total 767 ml 25 ml 472 ml 232 ml Tube Feeding 79 ml 299 ml Other 120 ml 60 ml 60 ml Output Urine Total 500 ml 450 ml 355 ml # Bowel Movements 1 1 1 (Shandra Braun MD R1) Result Diagram: 04/29/1740904/29/17409 Objective Remarks CONSTITUTIONAL/GEN: Nonverbal, lying in bed. LUNGS: coarse breath sounds CARDIOVASCULAR: RR without murmur or gallop. No edema. GI/ABD: soft without masses, without organomegaly. NEURO: Neglecting right side. Minimal response to stimulation. Right hemiplegia [facility]: Bandages on lateral left hip and thigh are clean dry and intact. Mild edema of right hand and foot. (Shandra Braun MD R1) A/P Assessment and Plan 76 y/o female with HTN, DM, CVA admitted for DKA and hip fracture. Now with large MCA stroke. Neuro and odd job worker consulted. Working with palliative care for goals of care. Discharge Planning Pending stroke progression and discussion for goals of care (Shandra Braun MD R1) Attending Attestation Patient seen and examined. Case reviewed and discussed Agree with plan of care as discussed with me and documented in the resident note. (Angélica Malik MD) Problem List: (1) Acute CVA (cerebrovascular accident) ICD Codes: I63.9 - Cerebral infarction, unspecified Status: Acute Plan: Patient found minimally responsive with neurological deficits around 0820 04/24. Stat CT of head was ordered, which showed large left MCA infarct. Diffuse edema throughout the left MCA distribution, suggest completed infarct. This was discussed and was not a candidate for intracranial intervention. Repeat CT 04/28 shows increasing edema left hemisphere with 1.4cm left to right shift. Echocardiogram- The left ventricular systolic function is low normal with an estimated ejection fraction in the range of 50-55%. Mild concentric left ventricular hypertrophy. Normal left ventricular size. [id number] mitral valve regurgitation. Carotid Artery US- No hemodynamically significant carotid stenosis -May hold Glucerna 1.5 mLs for diet via NG tube due to concerns about aspiration and breathing. -Non Profit Director consult for management and recs -Consult palliative care-appreciate recs -Case discussed with daughter in-person about goals of care, limited treatment options, and poor prognosis. -Daughter continues to want aggressive care -Neurology consulted-appreciate recs -Does not recommend a CTA at this time -Rectal ASA -Consulted odd job worker, alfonzo stevens -Flagyl 500mg IV daily was started due to concern for aspiration (04/29- ) ( Will order a chest XR in the AM) -IV hydration, watch for hypotension. -Keep systolic to less than 220 -Hold hypernatremic IVF due to hyperchloremia, but may be indicated -PICC line order placed for need of hypernatremic NS or insulin drip -D/C'd mannitol due to serum osmolarity greater than 315, will recheck in the AM -Catheter placed due to urinary retention (2) Yeast UTI ICD Codes: B37.49 - Other urogenital candidiasis Status: Acute Plan: UA showed glucose, large number of leukocytes esterase, innumerable WBCs , rare bacteria, and few yeast Urine culture shows yeast -Fluconazole 200mg IV daily was started (04/29- ) (3) Type 2 diabetes mellitus ICD Codes: E11.9 - Type 2 diabetes mellitus without complications Status: Chronic Plan: Admitted for DKA which has now resolved. Hemoglobin A1C is 12.9. Diabetes is uncontrolled. - Decreased levemir to 10 units BID due to hypoglycemia - Medium dose insulin sliding scale - Glucerna for NG tube feedings - Regular accuchecks q4H - Continue IV hydration (4) Atrial fibrillation ICD Codes: I48.91 - Unspecified atrial fibrillation Status: Acute Plan: Patient went into atrial fibrillation overnight. The last time was 2 nights ago. Resolved with administration of Lopressor. (5) Hip fracture ICD Codes: S72.009A - Fracture of unspecified part of neck of unspecified femur , initial encounter for closed fracture Status: Acute Plan: S/P left hip reduction ad intramedullary nail fixation on 04-21-17 -Consult orthopedics-alfonzo stevens * Cleared for discharge to rehabilitation * WBAT * Daily dressing changes * CM for rehabilitation placement * Follow-up in 2 weeks -Calcium/Vitamin D -Fluids as above -Tylenol, morphine PRN pain (6) Hypertension ICD Codes: I10 - Essential (primary) hypertension Status: Acute Plan: Blood pressure to normal limits on arrival. Daughter states the patient was on lisinopril in the past. -Continue fluids as above -Hold BP meds for permissive HTN (7) Fluids, Electrolytes, and Nutrition Status: Acute Plan: Fluids: IVF Electrolyte: on electrolyte protocol Nutrition: NG tube feedings, Glucerna due to concerns about aspiration, on PPI DVT ppx: SCDs; chemoppx contraindicated to prevent hemorrhage stroke (Shandra Braun MD R1) Problem Qualifiers (1) Type 2 diabetes mellitus: Qualified Codes: E11.9 - Type 2 diabetes mellitus without complications (2) Atrial fibrillation: Qualified Codes: I48.0 - Paroxysmal atrial fibrillation (3) Hip fracture: Qualified Codes: S72.002A - Fracture of unspecified part of neck of left femur , initial encounter for closed fracture (4) Hypertension: Qualified Codes: I10 - Essential (primary) hypertension Shandra Braun MD R1 Apr 29, 2017 12:03 Angélica Malik MD May 02, 2017 10:45
--- NOTE | 2017-04-29 13:03 | HHI.HCPN ---
Reason for visit a. To assist with evaluation and management of symptoms including: Debility and pain. b. To assist medical decision maker(s) with: better understanding of current medical conditions; weighing benefits/burdens of medical treatment options; making medical treatment decisions. . Subjective/Interval History Mrs. Hein date a 76-year-old female with a past medical history of hypertension , diabetes mellitus and CVA who presented to the ED on 04/20/17 via EMS for evaluation of after a fall. Upon ED admission, random glucose 559. Patient underwent Left hip reduction and intramedullary nail fixation on 04/21/17. Clinical course complicated by large left MCA infarct with diffuse edema throughout the left MCA distribution. Neurology, Dr. Malave consulted. Patient not a candidate for intervention, not a candidate for IV TPA. As per neurology "Christina 4Id the prognosis with a stroke of the size is poor". Palliative care consulted for further clarifications of goals of care given poor prognosis. Patient seen in ICU, resting in bed in moderate distress, restless. Unresponsive to verbal or tactile stimuli, briefly opening eyes. Not following commands. Persistent right-sided hemiparesis noted. Follow-up head CT 04/28/17 revealing increasing edema to left hemisphere with 1.4 cm left to right shift. Chest x-ray 04/20/17 revealing atelectasis and borderline cardiomegaly. Patient with bloody temperature dysregulation, temperature ranging from 103 to 96 degrees Fahrenheit. Intermittent cooling blanket and warming blanket. Patient with intermittent episodes of atrial fibrillation with RVR. Heart rate in the mid 120s at the time of my visit. Increased respiratory rate to high 20s to mid 30s and increased oxygen requirements with intermittent use of nasal cannula and mask, O2 ranging from 6-15 L. Concerns regarding patient's ability to protect her airways given worsening neurological status. Laboratory workup today revealing WBC 14.6, Hgb 9.0, platelet count 187. Random glucose 134 while on tube feedings. Urine culture 04/26/17 positive for yeast. Telephone conversation with patient's daughter Trice Salvador. Medical update provided. Discussed follow-up CT results revealing increased edema and midline shift. Discussed worsening neurological status and overall poor prognosis given patient's increase in oxygen requirement. Discussed concerns regarding patient's ability to regulate her body temperature and protect her airway. Patient's daughter under the impression of improved patient's neurological condition given patient's increased movement of extremities. Discussed with daughter that movement of extremities is secondary to restlessness but is not purposeful. Discussed increased oxygen requirements and the high likelihood of intubation and mechanical ventilation. Daughter wishing to continue aggressive management to include full code, intubation and mechanical ventilation. Case discussed with bedside RN Leah. . Family/friend interactions See interval note. . Advance Directives Living Will: Never completed Health Care Surrogate: Never completed Durable Power of Senior Construction Manager: Never completed Advance Directive Specifics Health Care Surrogate(s): No advance directives completed. As per [place] statute, healthcare proxy decision making falls to patient's only daughter Norma Salvador. . Documented care wishes: No living will completed. . Significant change in goals: Goals of care remain unchanged. . Objective Vital Signs Date Time Temp Pulse Resp B/P (MAP) Pulse Ox O2 Delivery O2 Flow Rate FiO2 04/29/17 12:00 114 04/29/17 11:20 96 Nasal Cannula 6.00 04/29/17 10:00 100 Partial Non-Rebreather 15.00 04/29/17 10:00 108 04/29/17 09:54 98 Partial Rebreather 12.00 04/29/17 08:00 108 04/29/17 08:00 99.9 108 22 131/71 (91) 100 04/29/17 08:00 100 Non-Rebreather 15.00 04/29/17 06:00 108 04/29/17 04:00 102 04/29/17 04:00 97.2 102 15 150/75 (100) 100 04/29/17 03:35 97 Non-Rebreather 15.00 04/29/17 02:00 108 04/29/17 00:19 100 Non-Rebreather 04/29/17 00:00 102.7 118 28 123/56 (78) 98 04/29/17 00:00 118 04/28/17 22:00 74 04/28/17 20:16 96 Non-Rebreather 04/28/17 20:00 100.5 72 28 121/79 (93) 98 04/28/17 20:00 72 04/28/17 18:00 105 04/28/17 16:00 100 04/28/17 16:00 98.1 100 29 155/72 (99) 98 04/28/17 14:00 99 Intake & Output 04/29/17 04/29/17 06:59 18:59 Intake Total 591 ml 100 ml Output Total 355 ml Balance 236 ml 100 ml IV Total 232 ml 100 ml Tube Feeding 299 ml Other 60 ml Output Urine Total 355 ml # Bowel Movements 1 Physical Exam CONSTITUTIONAL/GENERAL: This is an elderly female resting in bed. Minimally responsive, intermittently opening eyes but not to command. Restless. TUBES/LINES/DRAINS: PIV's. Nasal cannula, Dobbhoff to right nare. Leavitt catheter, left soft wrist restraint. SKIN: No jaundice, rashes, or lesions. Ecchymoses on upper extremities. Skin temperature appropriate. Not diaphoretic. Surgical incision to left hip, covered in dressing. Dressing dry and intact. HEAD: Atraumatic. Normocephalic. EYES: Pupils equal and round and reactive. No scleral icterus. No injection or drainage. Left side gaze. ENT: Unable to evaluate hearing secondary to clinical condition. Nose without bleeding or purulent drainage. Moist oral mucosa. Dobbhoff to right nare. NECK: Trachea midline. Supple. CARDIOVASCULAR: Regular rate and rhythm. Peripheral pulses symmetric. RESPIRATORY/CHEST: Symmetric, unlabored respirations. Coarse bilaterally. GASTROINTESTINAL: Abdomen soft, round, mildly distended. Bowel sounds present. GENITOURINARY: Without palpable bladder distension. MUSCULOSKELETAL: Extremities without clubbing, cyanosis, or edema. NEUROLOGICAL: Eyes open, not tracking. Right-sided hemiparesis. Not following commands. PSYCHIATRIC: Unable to evaluate secondary to clinical condition. . Diagnostic Tests Laboratory Laboratory Tests Test 04/26/17 18:30 04/26/17 20:59 04/27/17 00:45 04/27/17 05:30 Blood Urea Nitrogen 40 MG/DL (7-18) 37 MG/DL (7-18) Creatinine 0.42 MG/DL (0.50-1.00) 0.46 MG/DL (0.50-1.00) Random Glucose 123 MG/DL (74-106) 56 MG/DL (74-106) Calcium Level 8.6 MG/DL (8.5-10.1) 8.5 MG/DL (8.5-10.1) Sodium Level 151 MEQ/L (136-145) 155 MEQ/L (136-145) Potassium Level 3.1 MEQ/L (3.5-5.1) 3.1 MEQ/L (3.5-5.1) Chloride Level 120 MEQ/L (98-107) 122 MEQ/L (98-107) Carbon Dioxide Level 25.5 MEQ/L (21.0-32.0) 25.4 MEQ/L (21.0-32.0) Anion Gap 6 MEQ/L (5-15) 8 MEQ/L (5-15) Estimat Glomerular Filtration Rate 147 ML/MIN (>89) 133 ML/MIN (>89) Serum Osmolality 325 MOSM/KG (275-295) 318 MOSM/KG (275-295) 320 MOSM/KG (275-295) White Blood Count 10.4 TH/MM3 (4.0-11.0) Red Blood Count 2.55 MIL/MM3 (4.00-5.30) Hemoglobin 8.2 GM/DL (11.6-15.3) Hematocrit 24.2 % (35.0-46.0) Mean Corpuscular Volume 95.0 FL (80.0-100.0) Mean Corpuscular Hemoglobin 32.3 PG (27.0-34.0) Mean Corpuscular Hemoglobin Concent 34.0 % (32.0-36.0) Red Cell Distribution Width 13.9 % (11.6-17.2) Platelet Count 177 TH/MM3 (150-450) Mean Platelet Volume 8.6 FL (7.0-11.0) Neutrophils (%) (Auto) 80.9 % (16.0-70.0) Lymphocytes (%) (Auto) 7.6 % (9.0-44.0) Monocytes (%) (Auto) 11.4 % (0.0-8.0) Eosinophils (%) (Auto) 0.1 % (0.0-4.0) Basophils (%) (Auto) 0.0 % (0.0-2.0) Neutrophils # (Auto) 8.4 TH/MM3 (1.8-7.7) Lymphocytes # (Auto) 0.8 TH/MM3 (1.0-4.8) Monocytes # (Auto) 1.2 TH/MM3 (0-0.9) Eosinophils # (Auto) 0.0 TH/MM3 (0-0.4) Basophils # (Auto) 0.0 TH/MM3 (0-0.2) CBC Comment DIFF FINAL Differential Comment Phosphorus Level 1.1 MG/DL (2.5-4.9) Magnesium Level 2.3 MG/DL (1.5-2.5) Test 04/27/17 12:30 04/27/17 17:50 04/27/17 22:40 04/28/17 04:00 Serum Osmolality 326 MOSM/KG (275-295) 323 MOSM/KG (275-295) 322 MOSM/KG (275-295) 322 MOSM/KG (275-295) Potassium Level 4.1 MEQ/L (3.5-5.1) 3.6 MEQ/L (3.5-5.1) Phosphorus Level 1.9 MG/DL (2.5-4.9) 0.9 MG/DL (2.5-4.9) White Blood Count 10.8 TH/MM3 (4.0-11.0) Red Blood Count 2.35 MIL/MM3 (4.00-5.30) Hemoglobin 7.5 GM/DL (11.6-15.3) Hematocrit 22.4 % (35.0-46.0) Mean Corpuscular Volume 95.5 FL (80.0-100.0) Mean Corpuscular Hemoglobin 32.0 PG (27.0-34.0) Mean Corpuscular Hemoglobin Concent 33.5 % (32.0-36.0) Red Cell Distribution Width 13.7 % (11.6-17.2) Platelet Count 151 TH/MM3 (150-450) Mean Platelet Volume 8.7 FL (7.0-11.0) Blood Urea Nitrogen 32 MG/DL (7-18) Creatinine 0.43 MG/DL (0.50-1.00) Random Glucose 116 MG/DL (74-106) Calcium Level 8.0 MG/DL (8.5-10.1) Magnesium Level 2.1 MG/DL (1.5-2.5) Sodium Level 154 MEQ/L (136-145) Chloride Level 120 MEQ/L (98-107) Carbon Dioxide Level 28.5 MEQ/L (21.0-32.0) Anion Gap 6 MEQ/L (5-15) Estimat Glomerular Filtration Rate 144 ML/MIN (>89) Test 04/28/17 12:57 04/28/17 16:34 04/29/17 04:10 Serum Osmolality 324 MOSM/KG (275-295) Phosphorus Level 2.0 MG/DL (2.5-4.9) 2.3 MG/DL (2.5-4.9) Hemoglobin 8.7 GM/DL (11.6-15.3) 9.0 GM/DL (11.6-15.3) Hematocrit 25.9 % (35.0-46.0) 28.0 % (35.0-46.0) White Blood Count 14.6 TH/MM3 (4.0-11.0) Red Blood Count 2.88 MIL/MM3 (4.00-5.30) Mean Corpuscular Volume 96.9 FL (80.0-100.0) Mean Corpuscular Hemoglobin 31.1 PG (27.0-34.0) Mean Corpuscular Hemoglobin Concent 32.1 % (32.0-36.0) Red Cell Distribution Width 14.1 % (11.6-17.2) Platelet Count 187 TH/MM3 (150-450) Mean Platelet Volume 8.9 FL (7.0-11.0) CBC Comment AUTO DIFF Differential Total Cells Counted 100 Neutrophils % (Manual) 65 % (16-70) Band Neutrophils % 26 % (0-6) Lymphocytes % 5 % (9-44) Monocytes % 3 % (0-8) Neutrophils # (Manual) 13.4 TH/MM3 (1.8-7.7) Metamyelocytes 1 % (0-1) Nucleated Red Blood Cells 1 /100 WBC (0-0) Differential Comment FINAL DIFF MANUAL Platelet Estimate NORMAL (NORMAL) Platelet Morphology Comment NORMAL (NORMAL) Polychromasia 2.0 % (0.0-1.9) Blood Urea Nitrogen 36 MG/DL (7-18) Creatinine 0.48 MG/DL (0.50-1.00) Random Glucose 134 MG/DL (74-106) Calcium Level 8.0 MG/DL (8.5-10.1) Magnesium Level 2.2 MG/DL (1.5-2.5) Sodium Level 152 MEQ/L (136-145) Potassium Level 3.4 MEQ/L (3.5-5.1) Chloride Level 120 MEQ/L (98-107) Carbon Dioxide Level 26.1 MEQ/L (21.0-32.0) Anion Gap 6 MEQ/L (5-15) Estimat Glomerular Filtration Rate 126 ML/MIN (>89) Result Diagram: 04/29/17 0410 04/29/17 0410 Imaging Last [address] 04/28/17 0800 Signed Impressions: Service Date/Time: Friday, April 28, 2017 10:00 - CONCLUSION: Increasing edema left hemisphere with 1.4 cm left to right shift. Ricardo Middleton MD FACR Chest X-Ray 04/28/17 0700 Signed Impressions: Service Date/Time: Friday, April 28, 2017 06:58 - CONCLUSION: 1. Bibasilar densities likely atelectasis. 2. Borderline cardiomegaly. Benja Ramsey MD Procedures * 04/21/17 -Left hip reduction and intramedullary nail fixation . Assessment and Plan Disease Oriented Problem List: (1) Acute CVA (cerebrovascular accident) (2) Hip fracture (3) Hypertension Symptom Scale: (1) Pain 0-10 Scale: Unable to quantify Comment: Secondary to recent surgical intervention (2) Debility 0-10 Scale: Unable to quantify Comment: Progressive. Pertinent Non-Medical Issues Psychosocial: Patient is originally from [facility]. Residing in [place] up until 2013 she moved to [place] to live with only daughter Trice. Patient is a , in 2006. Spiritual: No pentecostalism affiliation. Legal: No advance directives completed. Ethical issues impacting care: Patient unable to participating in medical decision-making secondary to clinical condition. Patient's daughter acting as healthcare proxy decision maker. . Important Contacts Daughter Norma Salvador . . Prognosis Mrs. Hein needs a 76-year-old female with a past medical history of hypertension, diabetes mellitus and prior CVA. Presented with left hip fracture , underwent ORIF. Clinical course complicated by large left MCA infarct with edema. Overall prognosis is poor for a meaningful neurological recovery or long -term survival given acute stroke, chronic ongoing comorbidities and advanced age. Patient appears hospice appropriate should family elects comfort-directed care. . Code Status: Full Code Plan * CODE STATUS: FULL CODE. Code status readdressed 04/29/17. Risks, benefits and limitations of CPR, intubation and mechanical ventilation has been discussed at length with daughter Norma. * HEALTHCARE DECISION-MAKING: Patient unable to participate in medical decision- making secondary to clinical condition, minimally responsive post CVA. No advance directives completed, patient is . As per [place] statute, healthcare proxy decision-making falls to patient's only daughter Trice Salvador. * GOALS OF CARE: 04/29/17, daughter verbalized wishing to pursue aggressive care to include full code: CPR, intubation and mechanical ventilation. Telephone conversation with patient's daughter today, she was unable to attend palliative care meeting scheduled for this morning. Medical update provided. Discussed follow-up CT results indicated increased edema and shift. Discussed concerns regarding patient's thermal dysregulation, increased oxygen requirement and continue ability to protect her airway given no improvement in her neurological condition. Daughter reports being under the impression of improved overall patient's clinical/neurological condition given patient's increased movement of head and left arm. Discussed with daughter that movement noted is nonpurposeful , patient not following any commands. Discussed overall poor prognosis given the above. Daughter electing to continue full aggressive care to include full code. Discussed with daughter very high likelihood of patient requiring intubation and mechanical ventilation given her clinical condition. Daughter verbalized understanding. * SYMPTOMS: = Pain, secondary to recent surgical intervention. Morphine IV available as needed. = Debility, progressive. Likely to continue to worsen given recent acute stroke. * Case discussed with bedside GREGORY Lynn. * Palliative care contact information has been provided to patient's daughter. * Ongoing emotional support and active listening provided. * Palliative care will continue to follow-up for further clarifications of goals of care as patient's clinical condition continues to evolve. . Time Spent Total Floor Time (mins): 34 (Total time to include review and summarization of medical records, physical exam, telephone conversation with patient's daughter for medical update and goals of care discussion and case review with bedside GREGORY Lynn.) >50% Counseling/Coord of Care: Yes Attestation To help prompt me to consider important information that might be impacting today's encounter and assessment, information from prior notes written by myself or my colleagues may have been "brought forward" into today's note. My signature on this note, however, is an attestation that I personally performed the exam, history, and/or decision-making noted today, and, unless otherwise indicated, the interactions with patient, family, and staff as well as the review of records all occurred today. I also attest that the listed assessment and stated plan reflect my best clinical judgment today based on the combination of historical information, prior notes, and today's exam/ interactions. When time spent is documented, it refers only to time spent today by the signer, or if indicated, combined time spent today by collaborating physician/nurse practitioner. Ashly Steven Apr 29, 2017 13:03
--- NOTE | 2017-04-29 13:47 | HHI.CCPN ---
Subjective Remarks/Hospital Course 04/24: 76-year-old female with a medical history significant for prior stroke, diabetes mellitus who was admitted with DKA and a hip fracture for which she underwent ORIF on 04/21. Patient developed altered mental status and was last noted to be okay around 5:30 AM. Subsequently there was a change in her mental status and she was noted to not be moving her right side for which stroke alert was called. Head CT showed large left MCA territory ischemic infarct with edema. Patient was transferred to the ICU by family medicine service in the critical care consult was requested. I evaluated the patient following arrival to the ICU. At that time she was laying in bed with her eyes open however not following commands and had a dense right hemiplegia. Patient was also evaluated by Dr. Malave from neurology. I further discussed current event with patient's daughter following her arrival to the ICU. Per the daughter patient has been living with her since her stroke in 2014 and does ambulate however has been having problems with memory and incontinence as well as gait difficulties. She does not feel patient would want intubation or tracheostomy or PEG tube. 04/25: Patient remains encephalopathic, awake though not following commands consistently. Dense right hemiplegia persists. Appears to be awake enough to protect airway currently. Patient's daughter rescinded DNR and made a full code last evening. 04/26: Remains encephalopathic, not following commands. On Dobbhoff for tube feeds at 30 cc per hour. Had urinary retention and drained 2 L of urine after placing Leavitt catheter today. CT head done this morning with large left MCA territory infarct with left to right midline shift and significant cerebral edema. Hyperglycemia noted. Patient given mannitol earlier for increasing cerebral edema. 04/27: Remains encephalopathic, not following commands. On Dobbhoff tube feeds at 30 cc per hour. When into A. fib with RVR last night which responded with Lopressor 5 mg IV 1 dose. 04/28: Remains encephalopathic, arousable, not following commands. Moves left upper extremity spontaneously. Tolerating Dobbhoff tube feeds. Remains on nasal cannula. 04/29: Encephalopathic, eyes be arousable, moves left upper extremity spontaneously and occasionally opens eyes. Dense right hemiplegia and aphasia persists. On nasal cannula. Dobbhoff tube feeds being advanced. Patient was transfused 1 unit PRBCs yesterday. Urine culture with yeast from yesterday for which fluconazole being started. Had brief run of A. fib with RVR which improved with Lopressor IV, currently in sinus rhythm. Objective Vital Signs Date Time Temp Pulse Resp B/P (MAP) Pulse Ox O2 Delivery O2 Flow Rate FiO2 04/29/17 12:00 114 04/29/17 12:00 101.3 29 139/74 (95) 95 04/29/17 11:20 Nasal Cannula 6.00 04/25/17 09:11 21 Intake and Output 04/29/17 04/29/17 04/29/17 07:59 15:59 23:59 Intake Total 591 ml 100 ml Output Total 355 ml Balance 236 ml 100 ml Result Diagram: 04/29/17 04104/29/17 0410 Imaging Last Impressions Head CT 04/24/17 0000 Signed Impressions: Service Date/Time: April 08:42 - CONCLUSION: 1. There is a large left MCA infarct. There is edema diffusely throughout the left MCA distribution. This would suggest completed infarct. The case was discussed with Dr. Ross. We did not feel the patient was a candidate for intracranial intervention due to the completed appearance of the infarct. 2. There is an old , encephalomalacic infarct involving the watershed distribution posteriorly on the left. Arnie Middleton MD Carotid Artery Ultrasound 04/24/17 0000 Signed Impressions: Service Date/Time: April 09:45 - CONCLUSION: 1. No hemodynamically significant carotid artery stenosis. Arnie Middleton MD Chest X-Ray 04/23/17 0000 Signed Impressions: Service Date/Time: Sunday, April 23, 2017 08:43 - CONCLUSION: Mild chronic interstitial changes. No acute abnormality. Deangelo Wren Jr., MD Hip X-Ray 04/21/17 0000 Signed Impressions: Service Date/Time: Friday, April 21, 2017 11:36 - CONCLUSION: Fluoroscopic images during placement of intramedullary siomara left femur. Benja Ramsey MD Hip and Pelvis X-Ray 04/20/17 0946 Signed Impressions: Service Date/Time: Thursday, April 20, 2017 10:36 - CONCLUSION: Mildly displaced intertrochanteric fracture. Benja Ramsey MD Objective Remarks HEENT/Neuro: Pallor present. No icterus, tongue moist, ARLEEN, drowsy, arousable , has spontaneous eye opening. Not following commands. Nonverbal. Dense right hemiplegia noted. Localizes with left upper extremity. Neck: No JVD Chest/pulmonary: Good air entry bilaterally, no wheezing or crackles. Scattered rhonchi Cardiovascular: S1-S2 regular no gallop or murmur GI/abdomen: Soft, nontender, bowel sounds present. Extremities: Warm bilaterally, no edema. Incision site over left hip ORIF site clean dry and intact. A/P Assessment and Plan 76-year-old female with: Large left MCA territory ischemic infarct Cerebral edema with midline shift Encephalopathy Right hemiplegia Left Hip fracture status post ORIF (04/21) Diabetes mellitus Fungal UTI Suspected aspiration Prior stroke Urinary retention Plan: Neuro: Follow neuro status. Aspirin per Dr. Malave from neurology who evaluated the patient. Patient not a candidate for thrombolysis per discussion with neurology and radiology. If cerebral edema/ neurologic status worsens patient would require endotracheal intubation and hyperventilation. Repeat head CT per neurology. Mannitol 12.5 g IV every 6 hourly for cerebral edema. Follow serial osmolality. Cardiovascular: IV hydration, watch for hypotension. Antihypertensives to keep systolic blood pressure less than to 180 mmHg Pulmonary: Supplemental O2. May require endotracheal intubation for airway protection. GI/liver: Dobbhoff for tube feedings and medications. Endocrine: Insulin sliding scale. Continue Levemir. /renal: Strict intake output, monitor and replete electrolytes, follow BUN/ creatinine. Leavitt catheter placed for urinary retention on 04/26. Heme: Follow CBC and coags. ID: Urine culture growing yeast from 04/28. Will add fluconazole 200 mg IV daily. Concern for aspiration. Add Flagyl 500 mg IV daily on 04/29. Prophylaxis: SCDs. Hold Lovenox/heparin in view of large stroke with concern for hemorrhagic transformation. I have explained to patient's daughter that there is a strong possibility that patient will need intubation possible tracheostomy and PEG tube placement and will be bedbound and may require penitentiary placement in view of extent of her stroke. This was reiterated on 04/26/2017 as well as on 04/28/17 and patient' s daughter wish to continue full CODE STATUS at this time. Being followed by palliative care team. Discussed with family medicine team, VP CLINICAL. Daughter wishes to continue full CODE STATUS at this time. Condition critical. Prognosis appears poor. Patient at high risk for deterioration. Darrel Saleh MD Apr 29, 2017 13:47
[2017-04-29] MEDS: metroNIDAZOLE 500 MG TAB DOBHOFF SCH ×2 (14:01→21:45)
[2017-04-29] MEDS: FLUCONAZOLE 200 MG PREMIX BAG 100 ML IV SCH (14:01)
[2017-04-29] MEDS: PANTOPRAZOLE SODIUM 40 MG VIAL IV PUSH SCH (17:02)
[2017-04-29] MEDS: MORPHINE SULFATE 4 MG/ML INJ IV PRN (18:30)
--- NOTE | 2017-04-29 20:31 | HHI.PR ---
Review/Management Diagnosis large left MCA stroke--exam is improved today Diagnosis/Plan: Subjective Subjective Comments No acute events reported Active Medications Current Medications Medications (Trade) Dose Ordered Sig/Zeferino Route Start Time Stop Time Status Last Admin (Tylenol) 650 mg Q6H PRN PO 04/20/17 14:30 04/28/17 22:10 (Zofran Inj) 4 mg Q6H PRN IV PUSH 04/20/17 15:00 (Morphine Inj) 1 mg Q3H PRN IV 04/20/17 17:15 04/28/17 18:15 (Morphine Inj) 2 mg Q3H PRN IV 04/20/17 17:15 04/29/17 18:30 (Narcan Inj) 0.4 mg UNSCH PRN IV 04/20/17 17:15 (Nalini-Colace) 1 tab BID PO 04/20/17 21:00 04/29/17 08:58 (Milk Of Magnesia Liq) 30 ml Q12H PRN PO 04/20/17 20:30 (Senokot) 17.2 mg Q12H PRN PO 04/20/17 20:30 04/23/17 22:55 (Dulcolax Supp) 10 mg DAILY PRN RECTAL 04/20/17 20:30 (Lactulose Liq) 30 ml DAILY PRN PO 04/20/17 20:30 (Oscal-D 250-125) 250 mg TID PO 04/21/17 13:00 04/29/17 18:04 (Basalt 7.5-325 Mg) 1 tab Q3H PRN PO 04/21/17 11:45 04/23/17 22:56 (Vitamin D3) 5,000 units DAILY PO 04/22/17 09:00 04/29/17 08:58 (NS Flush) 2 ml BID IV FLUSH 04/24/17 21:00 04/29/17 08:59 (NS Flush) 2 ml UNSCH PRN IV FLUSH 04/24/17 09:30 Sodium Chloride 1,000 ml @ 70 mls/hr [id number] IV 04/24/17 09:25 04/29/17 03:38 (Glucagon Inj) 1 mg UNSCH PRN IM/SQ 04/24/17 18:15 (Aspirin) 325 mg DAILY DOBHOFF 04/27/17 09:00 04/29/17 08:58 (D50w (Syr) Inj) 25 ml UNSCH PRN IV 04/26/17 20:30 04/28/17 15:50 (Lopressor Inj) 5 mg Q5M PRN IV PUSH 04/27/17 04:00 04/27/17 03:53 Potassium Chloride 100 ml @ 50 mls/hr Q2H PRN IV 04/27/17 08:45 Potassium Chloride 100 ml @ 50 mls/hr Q2H PRN IV 04/27/17 08:45 04/27/17 16:44 (K-Lyte Cl Eff) 50 meq UNSCH PRN PO 04/27/17 08:45 Potassium Chloride 100 ml @ 25 mls/hr UNSCH PRN IV 04/27/17 08:45 Potassium Chloride 100 ml @ 50 mls/hr Q2H PRN IV 04/27/17 08:45 04/29/17 12:15 Magnesium Sulfate 4 gm/Sodium Chloride 100 ml @ 50 mls/hr UNSCH PRN IV 04/27/17 08:45 (Mag-Ox) 800 mg UNSCH PRN PO 04/27/17 08:45 Magnesium Sulfate 2 gm/Sodium Chloride 100 ml @ 50 mls/hr UNSCH PRN IV 04/27/17 08:45 (K-Phos) 2,000 mg Q4H PRN PO 04/27/17 08:45 04/28/17 15:38 Sodium Phosphate 30 mmol/Sodium Chloride 250 ml @ 42 mls/hr UNSCH PRN IV 04/27/17 08:45 04/27/17 23:59 (K-Phos) 2,000 mg UNSCH PRN PO/TUBE 04/27/17 08:45 Potassium Phosphate 30 mmol/ Sodium Chloride 260 ml @ 42 mls/hr UNSCH PRN IV 04/27/17 08:45 04/27/17 10:49 (Levemir Inj) 10 units BID SQ 04/28/17 21:00 (Protonix Inj) 40 mg Q24H IV PUSH 04/28/17 17:00 04/29/17 17:02 (NovoLOG SUPPLEMENTAL SCALE) 1 ACHS SLIDING SCALE SQ 04/28/17 16:00 04/29/17 15:35 Fluconazole/ Sodium Chloride 100 ml @ 100 mls/hr Q24H IV 04/29/17 14:00 8/29/17 14:01 (Flagyl) 500 mg Q8HR DOBHOFF 04/29/17 14:00 04/29/17 14:01 Allergies Allergies Coded Allergies No Known Allergies (Unverified04/20/17) Exam I&O / VS 04/29/17 04/29/17 04/30/17 15:00 23:00 07:00 Intake Total 100 ml 1478 ml Output Total 500 ml Balance 100 ml 978 ml IV Total 100 ml 966 ml Tube Feeding 512 ml Output Urine Total 500 ml # Bowel Movements 3 Vital Signs Date Time Temp Pulse Resp B/P (MAP) Pulse Ox O2 Delivery O2 Flow Rate FiO2 04/29/17 18:00 114 04/29/17 16:00 100.4 118 27 161/78 (105) 100 04/29/17 16:00 120 04/29/17 14:00 117 04/29/17 12:00 114 04/29/17 12:00 101.3 118 29 139/74 (95) 95 04/29/17 11:20 96 Nasal Cannula 6.00 04/29/17 10:00 100 Partial Non-Rebreather 15.00 04/29/17 10:00 108 04/29/17 09:54 98 Partial Rebreather 12.00 04/29/17 08:00 108 04/29/17 08:00 99.9 108 22 131/71 (91) 100 04/29/17 08:00 100 Non-Rebreather 15.00 04/29/17 06:00 108 04/29/17 04:00 102 04/29/17 04:00 97.2 102 15 150/75 (100) 100 04/29/17 03:35 97 Non-Rebreather 15.00 04/29/17 02:00 108 04/29/17 00:19 100 Non-Rebreather 04/29/17 00:00 102.7 118 28 123/56 (78) 98 04/29/17 00:00 118 04/28/17 22:00 74 Respiratory: Lungs CTA, Non-labored respirations, BS equal Cardiology: Normal rate (tachycardic but regular), Regular Rhythm Musculoskeletal: ROM (within normal limits) Exam Comments lethargic, but arousable and follow simple commands CN--left conjugate gaze deviation. PERRL, Right upper motor neuron CN 7 palsey. MOTOR--no spontaneous movement RUE or RLE. with draws LUE and LLE Objective Micro and Labs Laboratory Tests Test 04/29/17 04:10 White Blood Count 14.6 Red Blood Count 2.88 Hemoglobin 9.0 Hematocrit 28.0 Mean Corpuscular Volume 96.9 Mean Corpuscular Hemoglobin 31.1 Mean Corpuscular Hemoglobin Concent 32.1 Red Cell Distribution Width 14.1 Platelet Count 187 Mean Platelet Volume 8.9 CBC Comment AUTO DIFF Differential Total Cells Counted 100 Neutrophils % (Manual) 65 Band Neutrophils % 26 Lymphocytes % 5 Monocytes % 3 Neutrophils # (Manual) 13.4 Metamyelocytes 1 Nucleated Red Blood Cells 1 Differential Comment FINAL DIFF MANUAL Platelet Estimate NORMAL Platelet Morphology Comment NORMAL Polychromasia 2.0 Blood Urea Nitrogen 36 Creatinine 0.48 Random Glucose 134 Calcium Level 8.0 Phosphorus Level 2.3 Magnesium Level 2.2 Sodium Level 152 Potassium Level 3.4 Chloride Level 120 Carbon Dioxide Level 26.1 Anion Gap 6 Estimat Glomerular Filtration Rate 126 Date/Time Source Procedure Growth Status 04/29/17 17:05 Blood Peripheral Aerobic Blood Culture Pending Received 04/29/17 17:05 Blood Peripheral Anaerobic Blood Culture Pending Received 04/26/17 12:20 Urine Catheterized Urine Urine Culture - Final Lea Glabrata Complete Marcio Malave PhD Apr 29, 2017 20:31
[2017-04-30] VITALS (17 sets, daily range): BP systolic 112–148; BP diastolic 55–75; PULSE 92–122; RESP 14–23; TEMP 98–98.7; O2SAT 94–100
[2017-04-30] MEDS: MORPHINE SULFATE 4 MG/ML INJ IV PRN (02:29)
[2017-04-30] MEDS: RESP: ALBUTEROL 2.5 MG/IPRATROPIUM 0.5 MG NEB (PRN) NEB (05:11)
[2017-04-30 05:39] LABS: HEMATOCRIT 31.4 % (35.0-46.0); HEMOGLOBIN 10.3 GM/DL (11.6-15.3); MEAN CELL VOLUME 96.9 FL (80.0-100.0); MEAN CORPUSCULAR HEMOGLOBIN 31.7 PG (27.0-34.0); MEAN CORPUSCULAR HGB CONC 32.7 % (32.0-36.0); MEAN PLATELET VOLUME 9.6 FL (7.0-11.0); PLATELET COUNT 265 TH/MM3 (150-450); RED BLOOD COUNT 3.24 MIL/MM3 (4.00-5.30); RED CELL DISTRIBUTION WIDTH 14.4 % (11.6-17.2); WHITE BLOOD COUNT 20.7 TH/MM3 (4.0-11.0)
[2017-04-30 06:04] LABS: BICARBONATE 29.4 MEQ/L (21.0-32.0); CALCIUM 8.3 MG/DL (8.5-10.1); CREATININE 0.53 MG/DL (0.50-1.00)
[2017-04-30 06:09] LABS: PHOSPHORUS 1.2 MG/DL (2.5-4.9)
[2017-04-30] MEDS: metroNIDAZOLE 500 MG TAB DOBHOFF SCH ×3 (07:03→21:48)
--- NOTE | 2017-04-30 07:32 | RADRPT ---
EXAM DATE/TIME: 04/30/2017 06:41 [facility] COMPARISON: CHEST SINGLE AP, April 28, 2017, 6:58. INDICATIONS : Fever. Congestion. MEDICAL HISTORY : Hypertension. Diabetes mellitus type I. SURGICAL HISTORY : None. ENCOUNTER: Subsequent ACUITY: 1 week PAIN SCORE: Non-responsive. LOCATION: Bilateral chest FINDINGS: There is cardiomegaly, blunting of the left greater the right lateral costophrenic angles and increas ed density at the lung bases and left midlung zone suspect for mild airspace disease and effusions. F eeding tube tip overlies the upper left quadrant in the expected location of the gastric body. CONCLUSION: Bilateral airspace disease and effusions. Cardiomegaly. Choco Mustafa MD on April 30, 2017 at 7:29 Board Certified Radiologist. This report was verified electronically.
[2017-04-30] MEDS: INSULIN ASPART SUPPLEMENTAL SCALE SQ SCH ×4 (07:37→21:00)
[2017-04-30] MEDS ORDERED: BUMETANIDE INJ 1 MG/4 ML VIAL IV PUSH ONE (08:00)
--- NOTE | 2017-04-30 08:37 | HHI.CCPN ---
Subjective Remarks/Hospital Course 04/24: 76-year-old female with a medical history significant for prior stroke, diabetes mellitus who was admitted with DKA and a hip fracture for which she underwent ORIF on 04/21. Patient developed altered mental status and was last noted to be okay around 5:30 AM. Subsequently there was a change in her mental status and she was noted to not be moving her right side for which stroke alert was called. Head CT showed large left MCA territory ischemic infarct with edema. Patient was transferred to the ICU by family medicine service in the critical care consult was requested. I evaluated the patient following arrival to the ICU. At that time she was laying in bed with her eyes open however not following commands and had a dense right hemiplegia. Patient was also evaluated by Dr. Malave from neurology. I further discussed current event with patient's daughter following her arrival to the ICU. Per the daughter patient has been living with her since her stroke in 2014 and does ambulate however has been having problems with memory and incontinence as well as gait difficulties. She does not feel patient would want intubation or tracheostomy or PEG tube. 04/25: Patient remains encephalopathic, awake though not following commands consistently. Dense right hemiplegia persists. Appears to be awake enough to protect airway currently. Patient's daughter rescinded DNR and made a full code last evening. 04/26: Remains encephalopathic, not following commands. On Dobbhoff for tube feeds at 30 cc per hour. Had urinary retention and drained 2 L of urine after placing Leavitt catheter today. CT head done this morning with large left MCA territory infarct with left to right midline shift and significant cerebral edema. Hyperglycemia noted. Patient given mannitol earlier for increasing cerebral edema. 04/27: Remains encephalopathic, not following commands. On Dobbhoff tube feeds at 30 cc per hour. When into A. fib with RVR last night which responded with Lopressor 5 mg IV 1 dose. 04/28: Remains encephalopathic, arousable, not following commands. Moves left upper extremity spontaneously. Tolerating Dobbhoff tube feeds. Remains on nasal cannula. 04/29: Encephalopathic, eyes be arousable, moves left upper extremity spontaneously and occasionally opens eyes. Dense right hemiplegia and aphasia persists. On nasal cannula. Dobbhoff tube feeds being advanced. Patient was transfused 1 unit PRBCs yesterday. Urine culture with yeast from yesterday for which fluconazole being started. Had brief run of A. fib with RVR which improved with Lopressor IV, currently in sinus rhythm. 04/30: Worsening hypoxemic respiratory failure, currently on partial nonrebreather. Remains lethargic. WBC count increased from 14.6 today 20.7. Chest x-ray shows bilateral worsening infiltrates and small pleural effusions. Sodium 154, weight up by 8 KG. Albumin 1 mg Bumex 1. Also one dose of albumin. Remains in sinus tachycardia. Tmax 101.3 Objective Vital Signs Date Time Temp Pulse Resp B/P (MAP) Pulse Ox O2 Delivery O2 Flow Rate FiO2 04/30/17 06:00 121 04/30/17 04:05 100 Non-Rebreather 04/30/17 04:00 98.2 17 134/75 (94) 04/29/17 19:00 15.00 Intake and Output 04/30/17 04/30/17 04/30/17 07:59 15:59 23:59 Intake Total 1268 ml Output Total 500 ml Balance 768 ml Result Diagram: 04/30/17 0436 04/30/17 0436 Imaging Last Impressions Head CT 04/24/17 0000 Signed Impressions: Service Date/Time: April 08:42 - CONCLUSION: 1. There is a large left MCA infarct. There is edema diffusely throughout the left MCA distribution. This would suggest completed infarct. The case was discussed with Dr. Ross. We did not feel the patient was a candidate for intracranial intervention due to the completed appearance of the infarct. 2. There is an old , encephalomalacic infarct involving the watershed distribution posteriorly on the left. Arnie Middleton MD Carotid Artery Ultrasound 04/24/17 0000 Signed Impressions: Service Date/Time: April 09:45 - CONCLUSION: 1. No hemodynamically significant carotid artery stenosis. Arnie Middleton MD Chest X-Ray 04/23/17 0000 Signed Impressions: Service Date/Time: Sunday, April 23, 2017 08:43 - CONCLUSION: Mild chronic interstitial changes. No acute abnormality. Deangelo Wren Jr., MD Hip X-Ray 04/21/17 0000 Signed Impressions: Service Date/Time: Friday, April 21, 2017 11:36 - CONCLUSION: Fluoroscopic images during placement of intramedullary siomara left femur. Benja Ramsey MD Hip and Pelvis X-Ray 04/20/17 0946 Signed Impressions: Service Date/Time: Thursday, April 20, 2017 10:36 - CONCLUSION: Mildly displaced intertrochanteric fracture. Benja Ramsey MD Objective Remarks Gen: Elderly female, lethargic. On pNRB HEENT: Pallor present. No icterus, tongue moist. Neck: No JVD Chest/pulmonary:Air entry equal bilaterally, bilateral course rhonchi few crackles Cardiovascular: S1-S2 regular, sinus tachycardia no gallop or murmur GI/abdomen: Soft, nontender, bowel sounds present. Extremities: Warm bilaterally, no edema. Incision site over left hip ORIF site clean dry and intact. Neuro: ARLEEN, drowsy, arousable, + spontaneous eye opening. Nonverbal. Dense right hemiplegia noted. Localizes with left upper extremity, squeezes L hand not to command. Withdraws LLE A/P Assessment and Plan Assessment: Large left MCA territory ischemic infarct Cerebral edema with midline shift Encephalopathy Acute hypoxemic respiratory failure Severe sepsis Probable HCAP Suspected aspiration Right hemiplegia Left Hip fracture status post ORIF (04/21) Diabetes mellitus Fungal UTI Prior stroke Urinary retention Plan: Neuro: Follow neuro status. Aspirin per Dr. Malave from neurology who evaluated the patient. Patient not a candidate for thrombolysis per discussion with neurology and radiology. If cerebral edema/ neurologic status worsens patient would require endotracheal intubation and hyperventilation. Repeat head CT per neurology. Mannitol 12.5 g IV every 6 hourly for cerebral edema. Follow serial osmolality. N a154, target 145-150 Cardiovascular: IV hydration, watch for hypotension. Antihypertensives to keep systolic blood pressure less than to 180 mmHg Bumex 1 mg IV x1 DC NS, start 1/2 NS at 84 ml per hour Pulmonary: Worsening respiratory status currently on partial nonrebreather. Chest x-ray shows increasing bilateral infiltrates and increasing white count probably indicating of HCAP May require endotracheal intubation for airway protection- will d/w family and palliative GI/liver: Dobbhoff for tube feedings and medications. Keep NPO due to worsening respiratory status Endocrine: Insulin sliding scale. Continue Levemir. /renal: Strict intake output, monitor and replete electrolytes, follow BUN/creatinine. Leavitt catheter placed for urinary retention on 04/26. Heme: Follow CBC and coags. ID: Urine culture growing C glabrata from 04/28. change fluconazole 200 mg IV daily to Micafungin 100 mg IV. Started on Flagyl 500 mg IV daily on 04/29. Will add cefepime antipseudomonal dosing Send sputum culture if intubated. Follow-up on blood cultures from 04/29 Prophylaxis: SCDs. Hold Lovenox/heparin in view of large stroke with concern for hemorrhagic transformation. Patient is taking a turn for the worse probably from healthcare associated pneumonia/aspiration from lack of airway protection. Low-grade fever with increasing white count and bilateral infiltrates. Hypoxemic respiratory failure currently on partial nonrebreather. I will discuss with palliative care and family, they want continued aggressive care recommend intubation. Dr Saleh have explained to patient's daughter that there is a strong possibility that patient will need intubation possible tracheostomy and PEG tube placement and will be bedbound and may require mcfp placement in view of extent of her stroke. This was reiterated on 04/26/2017 as well as on 04/28/17 and patient's daughter wish to continue full CODE STATUS at this time. Being followed by palliative care team. Discussed with family medicine team, MOLD STAMPER. Daughter wishes to continue full CODE STATUS at this time. Condition critical. Prognosis appears poor. Patient at high risk for deterioration. CCT 45 MIN excluding procedures Meg Mak MD Apr 30, 2017 08:37
[2017-04-30] MEDS: SODIUM CHLORIDE 0.9% FLUSH 5 ML FLUSH IV FLUSH SCH ×2 (09:00→21:00)
[2017-04-30] MEDS: INSULIN DETEMIR 100 UNITS/ML VIAL SQ SCH ×2 (09:00→21:00)
[2017-04-30] MEDS: DOCUSATE SODIUM 50 MG/SENNA 8.6 MG TAB PO SCH ×2 (09:00→21:00)
[2017-04-30] MEDS: MICAFUNGIN INJ 100 MG in SODIUM CHLORIDE 0.9% INJ 100 ML IV SCH (09:00)
--- NOTE | 2017-04-30 09:43 | RADRPT ---
EXAM DATE/TIME: 04/30/2017 09:10 [facility] COMPARISON: CT BRAIN W/O CONTRAST, April 28, 2017, 10:00. INDICATIONS : Evaluate status of stroke. RADIATION DOSE: 56.35 CTDIvol (mGy) MEDICAL HISTORY : Non-responsive. SURGICAL HISTORY : Non-responsive. ENCOUNTER: Initial ACUITY: 2 weeks PAIN SCALE: Non-responsive LOCATION: cranial TECHNIQUE: Multiple contiguous axial images were obtained of the head. Using automated exposure control and adj ustment of the mA and/or kV according to patient size, radiation dose was kept as low as reasonably a chievable to obtain optimal diagnostic quality images. DICOM format image data is available electro nically for review and comparison. FINDINGS: There has been a reduction in the midline shift relative to the prior study. It previously measured 1 4 mm and now measures 11 mm. Changes consistent with a large left-sided MCA territory infarction agai n seen and unchanged. There is effacement of the left lateral ventricle. CSF continues to fill the torres prasellar cistern. Calvarium is intact. CONCLUSION: Reduction in the midline shift from 14 to11 mm. Unchanged large left MCA territory infarction. Deangelo Wren Jr., MD on April 30, 2017 at 9:30 Board Certified Radiologist. This report was verified electronically.
--- NOTE | 2017-04-30 09:47 | HHI.FPPN ---
Subjective Remarks Patient seen and examined this morning. Patient on the way to CT scan. Patient on partial nonrebreather. Patient remains lethargic. Patient afebrile yesterday to 101.3 and tachycardic. (Moisés Hanson MD, R2) Objective Vitals Vital Signs Date Time Temp Pulse Resp B/P (MAP) Pulse Ox O2 Delivery O2 Flow Rate FiO2 04/30/17 06:00 121 04/30/17 04:05 100 Non-Rebreather 04/30/17 04:00 119 04/30/17 04:00 98.2 119 17 134/75 (94) 99 04/30/17 02:37 20 04/30/17 02:00 122 04/30/17 00:00 98.4 122 23 146/71 (96) 97 04/30/17 00:00 122 04/29/17 22:00 117 04/29/17 20:00 97.6 114 24 156/85 (108) 97 04/29/17 20:00 114 04/29/17 19:00 97 Partial Non-Rebreather 15.00 04/29/17 18:00 114 04/29/17 16:00 100.4 118 27 161/78 (105) 100 04/29/17 16:00 120 04/29/17 14:00 117 04/29/17 12:00 114 04/29/17 12:00 101.3 118 29 139/74 (95) 95 04/29/17 11:20 96 Nasal Cannula 6.00 04/29/17 10:00 100 Partial Non-Rebreather 15.00 04/29/17 10:00 108 04/29/17 09:54 98 Partial Rebreather 12.00 I/O 04/29/17 04/29/17 04/29/17 04/30/17 04/30/17 04/30/17 07:00 15:00 23:00 07:00 15:00 23:00 Intake Total 591 ml 100 ml 1478 ml 1268 ml Output Total 355 ml 500 ml 500 ml Balance 236 ml 100 ml 978 ml 768 ml IV Total 232 ml 100 ml 966 ml 753 ml Tube Feeding 299 ml 512 ml 455 ml Other 60 ml 60 ml Output Urine Total 355 ml 500 ml 500 ml # Bowel Movements 1 3 1 (Moisés Hanson MD, R2) Result Diagram: 04/30/17 0436 04/30/17 043 Objective Remarks CONSTITUTIONAL/GEN: Nonverbal, lying in bed. LUNGS: coarse breath sounds throughout CARDIOVASCULAR: Tachycardic. Regular rate without murmur or gallop. No edema. GI/ABD: soft without masses, without organomegaly. NEURO: Neglecting right side. Minimal response to stimulation. Right hemiplegia. Arousable. Spontaneous eye opening. MUSC: Bandages on lateral left hip and thigh are clean dry and intact. (Moisés Hanson MD, R2) A/P Assessment and Plan 76 y/o female with HTN, DM, CVA admitted for DKA and hip fracture. Now with large MCA stroke. Neuro and transmitter engineer consulted. Working with palliative care for goals of care. Discharge Planning Pending stroke progression and discussion for goals of care (Moisés Hanson MD, R2) Attending Attestation Patient seen and examined. Case reviewed and discussed Agree with plan of care as discussed with me and documented in the resident note. (Angélica Malik MD) Problem List: (1) Acute CVA (cerebrovascular accident) ICD Codes: I63.9 - Cerebral infarction, unspecified Status: Acute Plan: Patient found minimally responsive with neurological deficits around 0820 04/24. Stat CT of head was ordered, which showed large left MCA infarct. Diffuse edema throughout the left MCA distribution, suggest completed infarct. This was discussed and was not a candidate for intracranial intervention. Repeat CT 04/28 shows increasing edema left hemisphere with 1.4cm left to right shift. CT (04/30): Reduction in midline shift to 11mm. Unchanged large left MCA infarction. Echocardiogram- The left ventricular systolic function is low normal with an estimated ejection fraction in the range of 50-55%. Mild concentric left ventricular hypertrophy. Normal left ventricular size. [id number] mitral valve regurgitation. Carotid Artery US- No hemodynamically significant carotid stenosis -Holding Glucerna 1.5 mLs for diet via Dobbhoff tube due to concerns about aspiration and breathing. -Senior Mechanical Estimator consult for management and recs -Consult palliative care-appreciate recs -Case discussed with daughter in-person about goals of care, limited treatment options, and poor prognosis. -Daughter continues to want aggressive care -Neurology consulted-appreciate recs -Rectal ASA -Consulted transmitter engineer, appreciate recs -Flagyl 500mg IV daily was started due to concern for aspiration (04/29- ) -IV hydration, watch for hypotension. -Keep systolic to less than 220 -1/2NS; given Bumex 1mg IV -May need intubation if worsening respiratory status -Neurosurgery consulted -Catheter in place due to urinary retention (2) Sepsis ICD Codes: A41.9 - Sepsis, unspecified organism Plan: Pt meets SIRS criteria: WBC elevated to 20.7. HR up to 122. RR 20. Febrile to 101.3 yesterday Source of infection, likely pulmonary vs urinary -See antibiotics as below -Await cultures -Monitor vitals (3) HCAP (healthcare-associated pneumonia) ICD Codes: J18.9 - Pneumonia, unspecified organism Plan: CXR (04/30): Bilateral airspace disease and effusions Chest CT (04/30): Bilateral pulmonary infiltrates more pronounced within lower lobes with b/l pleural effusions. Material in lower lobe bronchi b/l, purulent or mucus plugging Suspect possible HCAP with increasing leukocytosis and fevers. Possible aspiration -Flagyl 500mg q8H (04/29 - ) -Cefepime 2g IV daily (04/30 - ) -Sputum culture if intubated -Repeat blood cultures pending (4) Yeast UTI ICD Codes: B37.49 - Other urogenital candidiasis Status: Acute Plan: UA showed glucose, large number of leukocytes esterase, innumerable WBCs , rare bacteria, and few yeast Urine culture shows Lea Glabrata -Changed fluconazole to Micafungin 100mg IV daily (5) Type 2 diabetes mellitus ICD Codes: E11.9 - Type 2 diabetes mellitus without complications Status: Chronic Plan: Admitted for DKA which has now resolved. Hemoglobin A1C is 12.9. Diabetes is uncontrolled. - Levemir 10 units BID - Medium dose insulin sliding scale - Glucerna for NG tube feedings - Regular accuchecks q4H - Continue IV hydration (6) Atrial fibrillation ICD Codes: I48.91 - Unspecified atrial fibrillation Status: Acute Plan: Hx of intermittent Afib. Resolved with administration of Lopressor. -Continue to monitor -Lopressor PRN (7) Hip fracture ICD Codes: S72.009A - Fracture of unspecified part of neck of unspecified femur , initial encounter for closed fracture Status: Acute Plan: S/P left hip reduction ad intramedullary nail fixation on 04-21-17 -Consult orthopedics-appreciate recs * Cleared for discharge to rehabilitation * WBAT * Daily dressing changes * CM for rehabilitation placement * Follow-up in 2 weeks -Calcium/Vitamin D -Fluids as above -Tylenol, morphine PRN pain (8) Hypertension ICD Codes: I10 - Essential (primary) hypertension Status: Acute Plan: IV hydration. BPs labile -Continue fluids as above -Antihypertensives to keep SBP<180 (9) Fluids, Electrolytes, and Nutrition Status: Acute Plan: Fluids: IVF Electrolyte: on electrolyte protocol Nutrition: NPO; holding NG tube feedings, Glucerna due to concerns about aspiration DVT ppx: SCDs; chemoppx contraindicated to prevent hemorrhage stroke GI ppx: protonix (Moisés Hanson MD, R2) Problem Qualifiers (1) Sepsis: Qualified Codes: A41.9 - Sepsis, unspecified organism (2) Type 2 diabetes mellitus: Qualified Codes: E11.9 - Type 2 diabetes mellitus without complications (3) Atrial fibrillation: Qualified Codes: I48.0 - Paroxysmal atrial fibrillation (4) Hip fracture: Qualified Codes: S72.002A - Fracture of unspecified part of neck of left femur , initial encounter for closed fracture (5) Hypertension: Qualified Codes: I10 - Essential (primary) hypertension Moisés Hanson MD, R2 Apr 30, 2017 09:47 Angélica Malik MD May 02, 2017 10:44
--- NOTE | 2017-04-30 09:47 | RADRPT ---
EXAM DATE/TIME: 04/30/2017 09:20 [place] COMPARISON: No previous studies available for comparison. INDICATIONS : Evaluate for infiltrate; shortness of breath. RADIATION DOSE: 5.28 CTDIvol (mGy) MEDICAL HISTORY : Non-responsive. SURGICAL HISTORY : Non-responsive. ENCOUNTER: Initial ACUITY: 1 day PAIN SCALE: Non-responsive LOCATION: [place] TECHNIQUE: Volumetric scanning of the chest was performed. Using automated exposure control and adjustment of t he mA and/or kV according to patient size, radiation dose was kept as low as reasonably achievable to obtain optimal diagnostic quality images. DICOM format image data is available electronically for r eview and comparison. Follow-up recommendations for detected pulmonary nodules are based at a minimum on nodule size and pa tient risk factors according to Fleischner Society Guidelines. FINDINGS: Dense consolidations seen involving both lungs but predominantly involving the lower lobes. Several s mall air bronchograms observed. Low density material seen filling the lower lobe bronchi. Tiny bilate ral pleural effusions. The heart is normal in size. Coronary artery atherosclerotic calcifications. P ulmonary arteries and aorta are normal in caliber. Nasogastric tube is seen within the stomach. A deg enerative thoracic spine. Upper abdomen is unremarkable. CONCLUSION: 1. Bilateral pulmonary infiltrates more pronounced within the lower lobes with tiny bilateral pleural effusions. Material seen filling the lower lobe bronchi bilaterally either related to purulent mater ial or perhaps mucus plugging. Deangelo Wren Jr., MD on April 30, 2017 at 9:42 Board Certified Radiologist. This report was verified electronically.
[2017-04-30] MEDS: RESP: ALBUTEROL 2.5 MG/IPRATROPIUM 0.5 MG NEB (SCH) NEB ×3 (10:03→21:59)
[2017-04-30] MEDS: CALCIUM/VITAMIN D 250 MG/125 U TAB PO SCH ×3 (10:14→18:00)
[2017-04-30] MEDS: CHOLECALCIFEROL (VIT D3) 5000 UNIT CAP PO SCH (10:15)
[2017-04-30] MEDS: ASPIRIN 325 MG TAB DOBHOFF SCH (10:15)
[2017-04-30] MEDS: CEFEPIME INJ 2,000 MG in SODIUM CHLORIDE 0.9% INJ 100 ML IV SCH ×2 (10:15→16:51)
--- NOTE | 2017-04-30 13:23 | HHI.HCPN ---
Reason for visit a. To assist with evaluation and management of symptoms including: Debility and pain. b. To assist medical decision maker(s) with: better understanding of current medical conditions; weighing benefits/burdens of medical treatment options; making medical treatment decisions. . Subjective/Interval History Mrs. Hein date a 76-year-old female with a past medical history of hypertension , diabetes mellitus and CVA who presented to the ED on 04/20/17 via EMS for evaluation of after a fall. Upon ED admission, random glucose 559. Patient underwent Left hip reduction and intramedullary nail fixation on 04/21/17. Clinical course complicated by large left MCA infarct with diffuse edema throughout the left MCA distribution. Neurology, Dr. Malave consulted. Patient not a candidate for intervention, not a candidate for IV TPA. As per neurology "Christina 4Id the prognosis with a stroke of the size is poor". Palliative care consulted for further clarifications of goals of care given poor prognosis. Patient seen in ICU, resting in bed in no acute distress. Currently on nonrebreather mask at 15 L. Patient restless at times, mostly lethargic. Persistent right-sided hemiparesis. Not following commands or tracking with eyes. : Blank in place. Max temp 98.4 today. Remains tachycardic with heart rate in the 120s. Laboratory workup today revealing leukocytosis with WBC 20.7 from 14.6 yesterday. Stable hemoglobin 10.3 status post transfusion of PRBC x1 on 04/28/17. Platelet count 265. BUN/creatinine 37/0.53. Chest x-ray today revealing bilateral airspace disease and effusions. Chest CT revealing bilateral pulmonary infiltrates and pleural effusions. Repeat head CT with reduction in the midline shift from 14 mm to 11 mm. Unchanged large left MCA stroke. Neurosurgery has been consulted, pending. Bedside conversation with patient's daughter Trice Salvador. Medical update provided. Discussed worsening neurological and respiratory status with overall poor prognosis given patient's increase in oxygen requirement. Discussed concerns regarding patient's ability to protect her airway. Discussed increased oxygen requirements and the high likelihood of intubation and mechanical ventilation given the above. Discussed likely progression to tracheostomy and PEG tube feeding given severity of stroke/bedbound state. Discussed risks, benefits and limitations of CPR, intubation and mechanical ventilation given patient's critical condition and poor overall prognosis. Daughter wishing to continue aggressive management to include full code, intubation and mechanical ventilation. However, considering no cardiac code at this time and receptive to medical update by mud mill tender. Palliative care to follow-up. Case discussed with bedside RN Leah. . Family/friend interactions Seen interval note. . Advance Directives Living Will: Never completed Health Care Surrogate: Never completed Durable Power of Librarian Helper: Never completed Advance Directive Specifics Health Care Surrogate(s): No advance directives completed. As per [place] statute, healthcare proxy decision making falls to patient's only daughter Norma Salvador. . Documented care wishes: No living will completed. . Significant change in goals: Goals of care remain unchanged. . Objective Vital Signs Date Time Temp Pulse Resp B/P (MAP) Pulse Ox O2 Delivery O2 Flow Rate FiO2 04/30/17 10:03 94 Partial Rebreather 15.00 04/30/17 06:00 121 04/30/17 04:05 100 Non-Rebreather 04/30/17 04:00 119 04/30/17 04:00 98.2 119 17 134/75 (94) 99 04/30/17 02:37 20 04/30/17 02:00 122 04/30/17 00:00 98.4 122 23 146/71 (96) 97 04/30/17 00:00 122 04/29/17 22:00 117 04/29/17 20:00 97.6 114 24 156/85 (108) 97 04/29/17 20:00 114 04/29/17 19:00 97 Partial Non-Rebreather 15.00 04/29/17 18:00 114 04/29/17 16:00 100.4 118 27 161/78 (105) 100 04/29/17 16:00 120 04/29/17 14:00 117 Intake & Output 04/30/17 04/30/17 07:00 19:00 Intake Total 1268 ml 208 ml Output Total 500 ml Balance 768 ml 208 ml IV Total 753 ml 208 ml Tube Feeding 455 ml Other 60 ml Output Urine Total 500 ml # Bowel Movements 1 Physical Exam CONSTITUTIONAL/GENERAL: This is an elderly female resting in bed. Minimally responsive, intermittently opening eyes but not to command. TUBES/LINES/DRAINS: PIV's. Nonrebreather mask, Dobbhoff to right nare. Leavitt catheter, left soft wrist restraint. SKIN: No jaundice, rashes, or lesions. Ecchymoses on upper extremities. Skin temperature appropriate. Not diaphoretic. Surgical incision to left hip, covered in dressing. Dressing dry and intact. HEAD: Atraumatic. Normocephalic. EYES: Pupils equal and round and reactive. No scleral icterus. No injection or drainage. Left side gaze. ENT: Unable to evaluate hearing secondary to clinical condition. Nose without bleeding or purulent drainage. Moist oral mucosa. Dobbhoff to right nare. NECK: Trachea midline. Supple. CARDIOVASCULAR: Regular rate and rhythm. Peripheral pulses symmetric. RESPIRATORY/CHEST: Symmetric, increased work of breathing. Coarse bilaterally. Nonrebreather mask. GASTROINTESTINAL: Abdomen soft, round, mildly distended. Bowel sounds present. GENITOURINARY: Without palpable bladder distension. MUSCULOSKELETAL: Extremities without clubbing, cyanosis, or edema. NEUROLOGICAL: Eyes open, not tracking. Right-sided hemiparesis. Not following commands. PSYCHIATRIC: Unable to evaluate secondary to clinical condition. Restless at times. . Diagnostic Tests Laboratory Laboratory Tests Test 04/27/17 17:50 04/27/17 22:40 04/28/17 04:00 04/28/17 12:57 Serum Osmolality 323 MOSM/KG (275-295) 322 MOSM/KG (275-295) 322 MOSM/KG (275-295) 324 MOSM/KG (275-295) Potassium Level 4.1 MEQ/L (3.5-5.1) 3.6 MEQ/L (3.5-5.1) Phosphorus Level 1.9 MG/DL (2.5-4.9) 0.9 MG/DL (2.5-4.9) 2.0 MG/DL (2.5-4.9) White Blood Count 10.8 TH/MM3 (4.0-11.0) Red Blood Count 2.35 MIL/MM3 (4.00-5.30) Hemoglobin 7.5 GM/DL (11.6-15.3) Hematocrit 22.4 % (35.0-46.0) Mean Corpuscular Volume 95.5 FL (80.0-100.0) Mean Corpuscular Hemoglobin 32.0 PG (27.0-34.0) Mean Corpuscular Hemoglobin Concent 33.5 % (32.0-36.0) Red Cell Distribution Width 13.7 % (11.6-17.2) Platelet Count 151 TH/MM3 (150-450) Mean Platelet Volume 8.7 FL (7.0-11.0) Blood Urea Nitrogen 32 MG/DL (7-18) Creatinine 0.43 MG/DL (0.50-1.00) Random Glucose 116 MG/DL (74-106) Calcium Level 8.0 MG/DL (8.5-10.1) Magnesium Level 2.1 MG/DL (1.5-2.5) Sodium Level 154 MEQ/L (136-145) Chloride Level 120 MEQ/L (98-107) Carbon Dioxide Level 28.5 MEQ/L (21.0-32.0) Anion Gap 6 MEQ/L (5-15) Estimat Glomerular Filtration Rate 144 ML/MIN (>89) Test 04/28/17 16:34 04/29/17 04:10 04/30/17 04:36 04/30/17 08:17 Hemoglobin 8.7 GM/DL (11.6-15.3) 9.0 GM/DL (11.6-15.3) 10.3 GM/DL (11.6-15.3) Hematocrit 25.9 % (35.0-46.0) 28.0 % (35.0-46.0) 31.4 % (35.0-46.0) White Blood Count 14.6 TH/MM3 (4.0-11.0) 20.7 TH/MM3 (4.0-11.0) Red Blood Count 2.88 MIL/MM3 (4.00-5.30) 3.24 MIL/MM3 (4.00-5.30) Mean Corpuscular Volume 96.9 FL (80.0-100.0) 96.9 FL (80.0-100.0) Mean Corpuscular Hemoglobin 31.1 PG (27.0-34.0) 31.7 PG (27.0-34.0) Mean Corpuscular Hemoglobin Concent 32.1 % (32.0-36.0) 32.7 % (32.0-36.0) Red Cell Distribution Width 14.1 % (11.6-17.2) 14.4 % (11.6-17.2) Platelet Count 187 TH/MM3 (150-450) 265 TH/MM3 (150-450) Mean Platelet Volume 8.9 FL (7.0-11.0) 9.6 FL (7.0-11.0) CBC Comment AUTO DIFF Differential Total Cells Counted 100 Neutrophils % (Manual) 65 % (16-70) Band Neutrophils % 26 % (0-6) Lymphocytes % 5 % (9-44) Monocytes % 3 % (0-8) Neutrophils # (Manual) 13.4 TH/MM3 (1.8-7.7) Metamyelocytes 1 % (0-1) Nucleated Red Blood Cells 1 /100 WBC (0-0) Differential Comment FINAL DIFF MANUAL Platelet Estimate NORMAL (NORMAL) Platelet Morphology Comment NORMAL (NORMAL) Polychromasia 2.0 % (0.0-1.9) Blood Urea Nitrogen 36 MG/DL (7-18) 37 MG/DL (7-18) Creatinine 0.48 MG/DL (0.50-1.00) 0.53 MG/DL (0.50-1.00) Random Glucose 134 MG/DL (74-106) 233 MG/DL (74-106) Calcium Level 8.0 MG/DL (8.5-10.1) 8.3 MG/DL (8.5-10.1) Phosphorus Level 2.3 MG/DL (2.5-4.9) 1.2 MG/DL (2.5-4.9) Magnesium Level 2.2 MG/DL (1.5-2.5) Sodium Level 152 MEQ/L (136-145) 154 MEQ/L (136-145) Potassium Level 3.4 MEQ/L (3.5-5.1) 3.9 MEQ/L (3.5-5.1) Chloride Level 120 MEQ/L (98-107) 118 MEQ/L (98-107) Carbon Dioxide Level 26.1 MEQ/L (21.0-32.0) 29.4 MEQ/L (21.0-32.0) Anion Gap 6 MEQ/L (5-15) 7 MEQ/L (5-15) Estimat Glomerular Filtration Rate 126 ML/MIN (>89) 113 ML/MIN (>89) Serum Osmolality 345 MOSM/KG (275-295) Blood Gas Puncture Site RT RADIAL Blood Gas Patient Temperature 98.6 Blood Gas HCO3 30 mmol/L (22-26) Blood Gas Base Excess 5.7 mmol/L (-2-2) Blood Gas Oxygen Saturation 92 % (90-100) Arterial Blood pH 7.46 (7.380-7.420) Arterial Blood Partial Pressure CO2 43 mmHg (38-42) Arterial Blood Partial Pressure O2 71 mmHg (61-120) Arterial Blood Oxygen Content 13.5 Vol % (12.0-20.0) Arterial Blood Carboxyhemoglobin 1.6 % (0-4) Arterial Blood Methemoglobin 0.8 % (0-2) Blood Gas Hemoglobin 10.3 G/DL (12.0-16.0) Oxygen Delivery Device Partial Rebreather Blood Gas Liter Flow 15 L/M Result Diagram: 04/30/17 0436 04/30/17 0436 Microbiology Microbiology Date/Time Source Procedure Growth Status 04/29/17 17:05 Blood Peripheral Aerobic Blood Culture - Preliminary NO GROWTH IN 1 DAY Resulted 04/29/17 17:05 Blood Peripheral Anaerobic Blood Culture - Preliminary NO GROWTH IN 1 DAY Resulted 04/29/17 17:00 Blood Peripheral Aerobic Blood Culture - Preliminary NO GROWTH IN 1 DAY Resulted 04/29/17 17:00 Blood Peripheral Anaerobic Blood Culture - Preliminary NO GROWTH IN 1 DAY Resulted Imaging Last [address] 04/30/17 0000 Signed Impressions: Service Date/Time: Sunday, April 30, 2017 09:10 - CONCLUSION: Reduction in the midline shift from 14 to11 mm. Unchanged large left MCA territory infarction. Deangelo Wren Jr., MD Chest X-Ray 04/30/17 0000 Signed Impressions: Service Date/Time: Sunday, April 30, 2017 06:41 - CONCLUSION: Bilateral airspace disease and effusions. Cardiomegaly. Choco Mustafa MD Chest CT 04/30/17 0000 Signed Impressions: Service Date/Time: Sunday, April 30, 2017 09:20 - CONCLUSION: 1. Bilateral pulmonary infiltrates more pronounced within the lower lobes with tiny bilateral pleural effusions. Material seen filling the lower lobe bronchi bilaterally either related to purulent material or perhaps mucus plugging. Deangelo Wren Jr., MD Procedures * 04/21/17 -Left hip reduction and intramedullary nail fixation . Assessment and Plan Disease Oriented Problem List: (1) Acute respiratory failure (2) Acute CVA (cerebrovascular accident) (3) Pneumonia (4) Atrial fibrillation with RVR (5) Hypertension (6) Hip fracture Symptom Scale: (1) Pain 0-10 Scale: Unable to quantify Comment: Secondary to recent surgical intervention (2) Debility 0-10 Scale: Unable to quantify Comment: Progressive. (3) Shortness of breath 0-10 Scale: Unable to quantify Comment: Increased oxygen requirement. Currently on nonrebreather mask at 15 L. Pertinent Non-Medical Issues Psychosocial: Patient is originally from [place]. Residing in [facility] up until 2013 she moved to [place] to live with only daughter Trice. Patient is a , in 2006. Spiritual: No evangelical affiliation. Legal: No advance directives completed. Ethical issues impacting care: Patient unable to participating in medical decision-making secondary to clinical condition. Patient's daughter acting as healthcare proxy decision maker. . Important Contacts Daughter Norma Salvador . . Prognosis Mrs. Hein needs a 76-year-old female with a past medical history of hypertension, diabetes mellitus and prior CVA. Presented with left hip fracture , underwent ORIF. Clinical course complicated by large left MCA infarct with edema. Overall prognosis is poor for a meaningful neurological recovery or long -term survival given acute stroke, chronic ongoing comorbidities and advanced age. Patient appears hospice appropriate should family elects comfort-directed care. . Code Status: Full Code Plan * CODE STATUS: FULL CODE. Code status readdressed 04/30/17. Risks, benefits and limitations of CPR, intubation and mechanical ventilation has been discussed at length with abbey Green. * HEALTHCARE DECISION-MAKING: Patient unable to participate in medical decision- making secondary to clinical condition, minimally responsive post CVA. No advance directives completed, patient is . As per [place] statute, healthcare proxy decision-making falls to patient's only daughter Trice Salvador. * GOALS OF CARE: 04/30/17, daughter verbalized wishing to pursue aggressive care to include full code: CPR, intubation and mechanical ventilation. Concerns regarding daughter's full understanding of patient's critical clinical condition and very poor prognosis for meaningful recovery. Bedside conversation with patient's daughter Trice Salvador. Medical update provided. Discussed worsening respiratory status given patient's increase in oxygen requirement/ ability to protect her airway/aspiration pneumonia. Discussed the high likelihood of patient requiring intubation and mechanical ventilation given the above. Discussed likely disease trajectory to include tracheostomy and PEG tube feeding given severity of stroke/bedbound state. Discussed risks, benefits and limitations of CPR, intubation and mechanical ventilation given patient's critical condition and poor overall prognosis. Daughter wishing to continue aggressive management to include full code, intubation and mechanical ventilation. However, daughter considering NO cardiac code, would like to discuss further with mud mill tender. * SYMPTOMS: = Shortness of breath, multifactorial. Secondary to altered mental status/CVA, pneumonia, lethargy. Increased oxygen requirement, currently on nonrebreather mask at 15 L. Will likely require intubation and mechanical ventilation. = Pain, secondary to recent surgical intervention. Morphine IV available as needed. = Debility, progressive. Likely to continue to worsen given recent acute stroke. * Case discussed with Dr. Mak and bedside RN Leah. * Palliative care contact information has been provided to patient's daughter. * Ongoing emotional support and active listening provided. Spiritual services following. * Palliative care will continue to follow-up for further clarifications of goals of care as patient's clinical condition continues to evolve. . Time Spent Total Floor Time (mins): 32 (Total time to include review medical records, physical exam, bedside goals of care conversation in medical update with patient 's daughter and case discussion with Dr. Mak and bedside RN Leah.) >50% Counseling/Coord of Care: Yes Attestation To help prompt me to consider important information that might be impacting today's encounter and assessment, information from prior notes written by myself or my colleagues may have been "brought forward" into today's note. My signature on this note, however, is an attestation that I personally performed the exam, history, and/or decision-making noted today, and, unless otherwise indicated, the interactions with patient, family, and staff as well as the review of records all occurred today. I also attest that the listed assessment and stated plan reflect my best clinical judgment today based on the combination of historical information, prior notes, and today's exam/ interactions. When time spent is documented, it refers only to time spent today by the signer, or if indicated, combined time spent today by collaborating physician/nurse practitioner. Ashly Steven Apr 30, 2017 13:23
--- NOTE | 2017-04-30 14:33 | HHI.PR ---
Review/Management Diagnosis large left MCA stroke--prognosis guarded. discussed with her daughter Diagnosis/Plan: Subjective Subjective Comments No acute events reported Active Medications Current Medications Medications (Trade) Dose Ordered Sig/Zeferino Route Start Time Stop Time Status Last Admin (Tylenol) 650 mg Q6H PRN PO 04/20/17 14:30 04/28/17 22:10 (Zofran Inj) 4 mg Q6H PRN IV PUSH 04/20/17 15:00 04/30/17 02:28 (Morphine Inj) 1 mg Q3H PRN IV 04/20/17 17:15 04/28/17 18:15 (Morphine Inj) 2 mg Q3H PRN IV 04/20/17 17:15 04/30/17 02:29 (Narcan Inj) 0.4 mg UNSCH PRN IV 04/20/17 17:15 (Nalini-Colace) 1 tab BID PO 04/20/17 21:00 04/29/17 08:58 (Milk Of Magnesia Liq) 30 ml Q12H PRN PO 04/20/17 20:30 (Senokot) 17.2 mg Q12H PRN PO 04/20/17 20:30 04/23/17 22:55 (Dulcolax Supp) 10 mg DAILY PRN RECTAL 04/20/17 20:30 (Lactulose Liq) 30 ml DAILY PRN PO 04/20/17 20:30 (Oscal-D 250-125) 250 mg TID PO 04/21/17 13:00 04/30/17 10:14 (Boaz 7.5-325 Mg) 1 tab Q3H PRN PO 04/21/17 11:45 04/23/17 22:56 (Vitamin D3) 5,000 units DAILY PO 04/22/17 09:00 04/30/17 10:15 (NS Flush) 2 ml BID IV FLUSH 04/24/17 21:00 04/29/17 21:45 (NS Flush) 2 ml UNSCH PRN IV FLUSH 04/24/17 09:30 (Glucagon Inj) 1 mg UNSCH PRN IM/SQ 04/24/17 18:15 (Aspirin) 325 mg DAILY DOBHOFF 04/27/17 09:00 04/30/17 10:15 (D50w (Syr) Inj) 25 ml UNSCH PRN IV 04/26/17 20:30 04/28/17 15:50 (Lopressor Inj) 5 mg Q5M PRN IV PUSH 04/27/17 04:00 04/27/17 03:53 Potassium Chloride 100 ml @ 50 mls/hr Q2H PRN IV 04/27/17 08:45 Potassium Chloride 100 ml @ 50 mls/hr Q2H PRN IV 04/27/17 08:45 04/27/17 16:44 (K-Lyte Cl Eff) 50 meq UNSCH PRN PO 04/27/17 08:45 Potassium Chloride 100 ml @ 25 mls/hr UNSCH PRN IV 04/27/17 08:45 Potassium Chloride 100 ml @ 50 mls/hr Q2H PRN IV 04/27/17 08:45 04/29/17 12:15 Magnesium Sulfate 4 gm/Sodium Chloride 100 ml @ 50 mls/hr UNSCH PRN IV 04/27/17 08:45 (Mag-Ox) 800 mg UNSCH PRN PO 04/27/17 08:45 Magnesium Sulfate 2 gm/Sodium Chloride 100 ml @ 50 mls/hr UNSCH PRN IV 04/27/17 08:45 (K-Phos) 2,000 mg Q4H PRN PO 04/27/17 08:45 04/28/17 15:38 Sodium Phosphate 30 mmol/Sodium Chloride 250 ml @ 42 mls/hr UNSCH PRN IV 04/27/17 08:45 04/27/17 23:59 (K-Phos) 2,000 mg UNSCH PRN PO/TUBE 04/27/17 08:45 Potassium Phosphate 30 mmol/ Sodium Chloride 260 ml @ 42 mls/hr UNSCH PRN IV 04/27/17 08:45 04/27/17 10:49 (Levemir Inj) 10 units BID SQ 04/28/17 21:00 04/29/17 21:45 (Protonix Inj) 40 mg Q24H IV PUSH 04/28/17 17:00 04/29/17 17:02 (NovoLOG SUPPLEMENTAL SCALE) 1 ACHS SLIDING SCALE SQ 04/28/17 16:00 04/30/17 07:37 Fluconazole/ Sodium Chloride 100 ml @ 100 mls/hr Q24H IV 04/29/17 14:00 04/29/17 14:01 (Flagyl) 500 mg Q8HR DOBHOFF 04/29/17 14:00 04/30/17 07:03 (Duoneb Neb) 1 ampule Q4HR NEB PRN NEB 04/30/17 04:45 04/30/17 05:11 Potassium Chloride/Sodium Chloride 1,000 ml @ 84 mls/hr [id number] IV 04/30/17 08:00 (Duoneb Neb) 1 ampule Q6HR NEB NEB 04/30/17 10:00 04/30/17 10:03 Cefepime HCl 2000 mg/Sodium Chloride 100 ml @ 200 mls/hr Q8H IV 04/30/17 09:00 04/30/17 10:15 Micafungin Sodium 100 mg/Sodium Chloride 100 ml @ 100 mls/hr Q24H IV 04/30/17 09:00 Allergies Allergies Coded Allergies No Known Allergies (Unverified04/20/17) Exam I&O / VS 04/30/17 04/30/17 05/01/17 14:59 22:59 06:59 Intake Total 208 ml Balance 208 ml IV Total 208 ml Vital Signs Date Time Temp Pulse Resp B/P (MAP) Pulse Ox O2 Delivery O2 Flow Rate FiO2 04/30/17 10:03 94 Partial Rebreather 15.00 04/30/17 06:00 121 04/30/17 04:05 100 Non-Rebreather 04/30/17 04:00 119 04/30/17 04:00 98.2 119 17 134/75 (94) 99 04/30/17 02:37 20 04/30/17 02:00 122 04/30/17 00:00 98.4 122 23 146/71 (96) 97 04/30/17 00:00 122 04/29/17 22:00 117 04/29/17 20:00 97.6 114 24 156/85 (108) 97 04/29/17 20:00 114 04/29/17 19:00 97 Partial Non-Rebreather 15.00 04/29/17 18:00 114 04/29/17 16:00 100.4 118 27 161/78 (105) 100 04/29/17 16:00 120 Respiratory: Lungs CTA, Non-labored respirations, BS equal Cardiology: Normal rate (tachycardic but regular), Regular Rhythm Musculoskeletal: ROM (within normal limits) Exam Comments lethargic, but arousable and follow simple commands CN--left conjugate gaze deviation. PERRL, Right upper motor neuron CN 7 palsey. MOTOR--no spontaneous movement RUE or RLE. with draws LUE and LLE Objective Micro and Labs Laboratory Tests Test 04/30/17 04:36 04/30/17 08:17 White Blood Count 20.7 Red Blood Count 3.24 Hemoglobin 10.3 Hematocrit 31.4 Mean Corpuscular Volume 96.9 Mean Corpuscular Hemoglobin 31.7 Mean Corpuscular Hemoglobin Concent 32.7 Red Cell Distribution Width 14.4 Platelet Count 265 Mean Platelet Volume 9.6 Blood Urea Nitrogen 37 Creatinine 0.53 Random Glucose 233 Calcium Level 8.3 Phosphorus Level 1.2 Sodium Level 154 Potassium Level 3.9 Chloride Level 118 Carbon Dioxide Level 29.4 Anion Gap 7 Estimat Glomerular Filtration Rate 113 Serum Osmolality 345 Blood Gas Puncture Site RT RADIAL Blood Gas Patient Temperature 98.6 Blood Gas HCO3 30 Blood Gas Base Excess 5.7 Blood Gas Oxygen Saturation 92 Arterial Blood pH 7.46 Arterial Blood Partial Pressure CO2 43 Arterial Blood Partial Pressure O2 71 Arterial Blood Oxygen Content 13.5 Arterial Blood Carboxyhemoglobin 1.6 Arterial Blood Methemoglobin 0.8 Blood Gas Hemoglobin 10.3 Oxygen Delivery Device Partial Rebreather Blood Gas Liter Flow 15 Date/Time Source Procedure Growth Status 04/29/17 17:05 Blood Peripheral Aerobic Blood Culture - Preliminary NO GROWTH IN 1 DAY Resulted 04/29/17 17:05 Blood Peripheral Anaerobic Blood Culture - Preliminary NO GROWTH IN 1 DAY Resulted 04/26/17 12:20 Urine Catheterized Urine Urine Culture - Final Lea Glabrata Complete Marcio Malave PhD MD Apr 30, 2017 14:33
[2017-04-30] MEDS ORDERED: ETOMIDATE 20 MG/10 ML VIAL ONE (14:56)
[2017-04-30] MEDS ORDERED: MIDAZOLAM HCL 5 MG/ML VIAL (1 ML) ONE (14:57)
[2017-04-30] MEDS ORDERED: ROCURONIUM INJ 50 MG/5 ML VIAL ONE (14:58)
[2017-04-30] MEDS: 1/2 NS + KCL 20 MEQ INJ 1,000 ML IV SCH ×2 (14:59→19:55)
[2017-04-30] MEDS: FLUCONAZOLE 200 MG PREMIX BAG 100 ML IV SCH (14:59)
[2017-04-30] MEDS ORDERED: MIDAZOLAM HCL 5 MG/5 ML VIAL IV PUSH ONE (15:30)
[2017-04-30] MEDS ORDERED: ETOMIDATE 20 MG/10 ML VIAL IV PUSH ONE (15:30)
--- NOTE | 2017-04-30 15:41 | PD.PROCEDR ---
Procedure Note Procedure Indication: Inability to protect airway, Aspiration pneumonia INTUBATION: The patient was put in optimal position for the procedure. Rapid sequence intubation was initiated by me using 15 milligrams of etomidate IV and 5 milligrams of versed IV and Rocuronium 50 mg IV. DL Mac 3 Grade 1 view, single attempt. The patient was intubated with a cuffed 8.0 endotracheal tube. Tube placement was confirmed by visualization of the tube and balloon passing through the cords, capnometry and subsequent chest x-ray. Breath sounds were equal and well aerated bilaterally postintubation. No breath sounds over stomach. Patient tolerated procedure well. Meg Mak MD Apr 30, 2017 15:41
[2017-04-30] MEDS ORDERED: Vancomycin Consult Pharmacy 1 EA OTHER SCH (15:45)
[2017-04-30] MEDS ORDERED: VANCOMYCIN 1,000 MG/NS 250 ML IV SCH ×2 (15:45)
[2017-04-30] MEDS ORDERED: ROCURONIUM INJ 50 MG/5 ML VIAL IV PUSH ONE (15:45)
--- NOTE | 2017-04-30 16:38 | RADRPT ---
EXAM DATE/TIME: 04/30/2017 16:04 [facility] COMPARISON: CHEST SINGLE AP, April 30, 2017, 6:41. INDICATIONS : Intubation. MEDICAL HISTORY : Non-responsive. SURGICAL HISTORY : Non-responsive. ENCOUNTER: Subsequent ACUITY: 1 day PAIN SCORE: Non-responsive. LOCATION: Bilateral chest FINDINGS: Endotracheal tube is present with tip 1-2 cm above the valerie. A weighted feeding tube descends to th e stomach. Bilateral perihilar and basilar infiltrates are grossly unchanged. Cardiac contours are st able. CONCLUSION: Satisfactory endotracheal tube positioning. Obdulio Chun MD on April 30, 2017 at 16:35 Board Certified Radiologist. This report was verified electronically.
[2017-04-30] MEDS: PANTOPRAZOLE SODIUM 40 MG VIAL IV PUSH SCH (16:54)
[2017-04-30] MEDS: VANCOMYCIN INJ 1,250 MG in SODIUM CHLOR 0.9% 250 ML INJ 250 ML IV SCH (21:30)
--- NOTE | 2017-04-30 23:37 | PD.CONS ---
History of Present Illness Service Neurosurgery Consult Requested By [employer] Advisor Reason for Consult Left MCA CVA with increasing mass effect Primary Care Physician Unknown Diagnoses: History of Present Illness 76-year-old female admitted through the emergency room on 04/20/2017 after she was found on the floor of her home, awake but confused. The patient apparently does have a baseline of confusion and dementia but has been able to mostly care for herself up until recently. She was found to have a left hip intertrochanteric fracture on admission. She underwent left hip reduction and intramedullary nail fixation on 04/21/17. On 04/24/17 a stroke alert was called after she was found to have severe right hemiparesis and a left gaze. CT scan of the head on 04/24/17 revealed a large left MCA distribution CVA with mild edema, consistent with a completed CVA. She was not felt to be a candidate for TPA. Subsequent follow-up head CT scans on 04/26/17 and a 20/04/17 revealed gradual progression of edema, with 14 mm midline shift on the 04/28/17 CT. She has had intermittent doses of mannitol to treat this referral edema. Serum sodium has been maintained in the low to mid 150s for the past 4 days. Review of Systems Unable to obtain from the patient Past Family Social History Allergies: Coded Allergies: No Known Allergies (Unverified , 04/20/17) Past Medical History History of diabetes Hypertension Recent CVA as noted above Past Surgical History Major surgical procedures reported Reported Medications Reported Meds & Active Scripts Active Calcium 600+D 200 (Calcium Carbonate-Vitamin D) 600-200 Mg-Unit Tab 1 Tab PO BID 30 Days Vitamin D3 (Cholecalciferol) 2,000 Unit Cap 2,000 Units PO DAILY Ergocalciferol 50,000 Unit Cap 50,000 Units PO Q7D Xarelto (Rivaroxaban) 10 Mg Tab 10 Mg PO DAILY 14 Days Hydrocodone-Acetaminophen 7.5-325 mg Tab 1 Tab PO Q4H PRN Reported Glimepiride 4 Mg Tab 4 Mg PO DAILY@1600 Take with breakfast or first main meal Family History Unable to obtain from the patient Social History Unable to obtain from the patient. Per EMR no significant alcohol or tobacco use. Physical Exam Vital Signs Vital Signs Date Time Temp Pulse Resp B/P (MAP) Pulse Ox O2 Delivery O2 Flow Rate FiO2 04/30/17 22:00 98 04/30/17 20:00 98.0 92 17 112/57 (75) 100 04/30/17 20:00 94 04/30/17 19:31 100 Ventilator 04/30/17 19:24 100 100 04/30/17 19:00 100 Mechanical Ventilator 80 04/30/17 18:00 104 04/30/17 16:00 98 04/30/17 16:00 98.3 99 14 136/55 (82) 100 04/30/17 15:15 100 100 04/30/17 14:00 96 04/30/17 12:00 116 04/30/17 12:00 98.2 116 14 128/62 (84) 96 04/30/17 10:03 94 Partial Rebreather 15.00 04/30/17 10:00 118 04/30/17 08:00 98.7 118 18 148/72 (97) 94 04/30/17 08:00 118 04/30/17 07:00 100 Partial Non-Rebreather 15.00 04/30/17 06:00 121 04/30/17 04:05 100 Non-Rebreather 04/30/17 04:00 119 04/30/17 04:00 98.2 119 17 134/75 (94) 99 04/30/17 02:37 20 04/30/17 02:00 122 04/30/17 00:00 98.4 122 23 146/71 (96) 97 04/30/17 00:00 122 Physical Exam GENERAL: Thin elderly patient in no apparent distress. SKIN: No rashes, ecchymoses or lesions. Cool and dry. HEAD: Atraumatic. Normocephalic. No temporal or scalp tenderness. EYES: Sclerae are clear and nonicteric ENT: No facial edema or ecchymosis NECK: Trachea midline. No JVD or lymphadenopathy. Supple, nontender, no meningeal signs. CARDIOVASCULAR: Regular rate and rhythm without murmurs, gallops, or rubs. RESPIRATORY: Nonrebreather mask in place. Clear to auscultation. Breath sounds equal bilaterally. No wheezes, rales, or rhonchi. GASTROINTESTINAL: Abdomen soft, non-tender, nondistended. No hepato-splenomegaly , or palpable masses. No guarding. MUSCULOSKELETAL: No significant extremity edema. Posterior tibial pulse 2+ bilateral NEUROLOGICAL: She is awake. She opens her eyes further in response to voice. She has a right gaze deficit. She attempts to track and focus towards the left side in response to voice command. Pupils are 3 mm nonreactive Tongue palate sternocleidomastoid testing and facial motor testing are difficult due to diminished mental status. She does however have a moderate left grasp to command but otherwise does not move the left lower extremity or right side spontaneous or to command. Travis's response absent bilateral No ankle clonus Laboratory Laboratory Tests Test 04/30/17 04:36 04/30/17 08:17 White Blood Count 20.7 Red Blood Count 3.24 Hemoglobin 10.3 Hematocrit 31.4 Mean Corpuscular Volume 96.9 Mean Corpuscular Hemoglobin 31.7 Mean Corpuscular Hemoglobin Concent 32.7 Red Cell Distribution Width 14.4 Platelet Count 265 Mean Platelet Volume 9.6 Blood Urea Nitrogen 37 Creatinine 0.53 Random Glucose 233 Calcium Level 8.3 Phosphorus Level 1.2 Sodium Level 154 Potassium Level 3.9 Chloride Level 118 Carbon Dioxide Level 29.4 Anion Gap 7 Estimat Glomerular Filtration Rate 113 Serum Osmolality 345 Blood Gas Puncture Site RT RADIAL Blood Gas Patient Temperature 98.6 Blood Gas HCO3 30 Blood Gas Base Excess 5.7 Blood Gas Oxygen Saturation 92 Arterial Blood pH 7.46 Arterial Blood Partial Pressure CO2 43 Arterial Blood Partial Pressure O2 71 Arterial Blood Oxygen Content 13.5 Arterial Blood Carboxyhemoglobin 1.6 Arterial Blood Methemoglobin 0.8 Blood Gas Hemoglobin 10.3 Oxygen Delivery Device Partial Rebreather Blood Gas Liter Flow 15 Date/Time Source Procedure Growth Status 04/29/17 17:05 Blood Peripheral Aerobic Blood Culture - Preliminary NO GROWTH IN 1 DAY Resulted 04/29/17 17:05 Anaerobic Blood Culture - Preliminary Gram Positive Cocci Resulted 04/30/17 18:00 Sputum Endotracheal Gram Stain Pending Received 04/30/17 18:00 Sputum Endotracheal Sputum Culture Pending Received 04/26/17 12:20 Urine Catheterized Urine Urine Culture - Final Lea Glabrata Complete Result Diagram: 04/30/17 0436 04/30/17 0436 Imaging 04/30/17 CT scan of the head images reviewed by the angel luis. The study reveals an 11 mm [id number] midline shift related to the left MCA distribution CVA. This is improved from a shift of approximately 13-14 mm on prior study of 04/28/17. No evidence of hemorrhagic transformation. Head CT 04/30/17 0000 Signed Impressions: Service Date/Time: Sunday, April 30, 2017 09:10 - CONCLUSION: Reduction in the midline shift from 14 to11 mm. Unchanged large left MCA territory infarction. Deangelo Wren Jr., MD Chest X-Ray 04/30/17 0000 Signed Impressions: Service Date/Time: Sunday, April 30, 2017 16:04 - CONCLUSION: Satisfactory endotracheal tube positioning. Obdulio Chun MD Chest X-Ray 04/30/17 0000 Signed Impressions: Service Date/Time: Sunday, April 30, 2017 06:41 - CONCLUSION: Bilateral airspace disease and effusions. Cardiomegaly. Choco Mustafa MD Chest CT 04/30/17 0000 Signed Impressions: Service Date/Time: Sunday, April 30, 2017 09:20 - CONCLUSION: 1. Bilateral pulmonary infiltrates more pronounced within the lower lobes with tiny bilateral pleural effusions. Material seen filling the lower lobe bronchi bilaterally either related to purulent material or perhaps mucus plugging. Deangelo Wren Jr., MD Assessment and Plan Assessment and Plan Impression: 1. Left hemisphere MCA distribution CVA. Mass effect on CT scan of 04/30/17 has improved to approximately 11 mm compared to 13-14 mm on prior study on . Recommendations Continue conservative treatment for the CVA and edema. Continue to maintain sodium in the low to mid 150 range. Follow-up CT scan head over the next 2-3 days to ensure further improvement in the edema and mass effect depending on clinical status. Continuing OT/PT/ST. Physical medicine and rehabilitation following Neurology following No neurosurgical intervention anticipated at this point. Parker López MD Apr 30, 2017 23:37
[2017-04-30] MEDS: ACETAMINOPHEN 325 MG TAB PO PRN (23:55)
[2017-05-01] VITALS (22 sets, daily range): BP systolic 123–149; BP diastolic 60–70; PULSE 79–114; RESP 14–28; TEMP 98.8–101.5; O2SAT 93–100
[2017-05-01] MEDS: CEFEPIME INJ 2,000 MG in SODIUM CHLORIDE 0.9% INJ 100 ML IV SCH ×3 (00:27→17:21)
[2017-05-01] MEDS: POTASSIUM PHOSPHATE INJ 30 MMOL in SODIUM CHLOR 0.9% 250 ML INJ 250 ML IV PRN ×2 (01:26→17:22)
[2017-05-01] MEDS: RESP: ALBUTEROL 2.5 MG/IPRATROPIUM 0.5 MG NEB (SCH) NEB ×4 (03:41→20:14)
[2017-05-01 04:46] LABS: AUTOMATED NEUTROPHIL # 12.5 TH/MM3 (1.8-7.7); BASOPHIL # 0.1 TH/MM3 (0-0.2); BASOPHIL % 0.5 % (0.0-2.0); EOSINOPHIL # 0.1 TH/MM3 (0-0.4); EOSINOPHIL % 0.4 % (0.0-4.0); HEMATOCRIT 24.5 % (35.0-46.0); HEMOGLOBIN 7.9 GM/DL (11.6-15.3); LYMPH % 9.3 % (9.0-44.0); LYMPHOCYTE # 1.3 TH/MM3 (1.0-4.8); MEAN CELL VOLUME 96.8 FL (80.0-100.0); MEAN CORPUSCULAR HEMOGLOBIN 31.2 PG (27.0-34.0); MEAN CORPUSCULAR HGB CONC 32.2 % (32.0-36.0); MEAN PLATELET VOLUME 9.5 FL (7.0-11.0); MONO % 4.1 % (0.0-8.0); MONOCYTE # 0.6 TH/MM3 (0-0.9); NEUT % 85.7 % (16.0-70.0); PLATELET COUNT 281 TH/MM3 (150-450); RED BLOOD COUNT 2.53 MIL/MM3 (4.00-5.30); RED CELL DISTRIBUTION WIDTH 14.5 % (11.6-17.2); WHITE BLOOD COUNT 14.5 TH/MM3 (4.0-11.0)
[2017-05-01 04:58] LABS: ALBUMIN 1.3 GM/DL (3.4-5.0); AST (GOT) 51 U/L (15-37); BICARBONATE 28.5 MEQ/L (21.0-32.0); BLOOD UREA NITROGEN 41 MG/DL (7-18); CHLORIDE 119 MEQ/L (98-107); CREATININE 0.67 MG/DL (0.50-1.00); GLOMERULAR FILTRATION RATE 86 ML/MIN (>89); GLUCOSE,RANDOM 230 MG/DL (74-106); MAGNESIUM 2.2 MG/DL (1.5-2.5); SODIUM (NA) 154 MEQ/L (136-145)
[2017-05-01 05:00] LABS: ALT (GPT) 36 U/L (10-53)
[2017-05-01 05:02] LABS: ALKALINE PHOSPHATASE 351 U/L (45-117); TOTAL BILIRUBIN ADULT 0.4 MG/DL (0.2-1.0); TOTAL PROTEIN 5.1 GM/DL (6.4-8.2)
--- NOTE | 2017-05-01 05:25 | RADRPT ---
EXAM DATE/TIME: 05/01/2017 04:13 [facility] COMPARISON: CHEST SINGLE AP, April 30, 2017, 16:04. INDICATIONS : Shortness of breath, possible pulmonary disease. MEDICAL HISTORY : Hypertension. Diabetes mellitus type I. SURGICAL HISTORY : None. ENCOUNTER: Subsequent ACUITY: 1 week PAIN SCORE: 0/10 LOCATION: Bilateral chest FINDINGS: A single view of the chest demonstrates endotracheal tube in satisfactory position. Feeding tube ente rs stomach. Bibasilar and right upper lobe airspace disease relatively stable. No pneumothorax. Small effusions. CONCLUSION: 1. Support apparatus in satisfactory position. Basilar and right upper lobe airspace disease similar to April 30. Jaime Velasquez MD on May 01, 2017 at 5:21 Board Certified Radiologist. This report was verified electronically.
[2017-05-01 05:50] LABS: BANDS 11 % (0-6); LYMPHOCYTES 7 % (9-44); MONOCYTES 5 % (0-8); MYELOCYTES 1 % (0-0); NEUTROPHIL # MANUAL DIFF 12.8 TH/MM3 (1.8-7.7); POLYS (SEG NEUTROPHILS) 76 % (16-70)
[2017-05-01] MEDS: metroNIDAZOLE 500 MG TAB DOBHOFF SCH ×3 (05:53→20:56)
[2017-05-01] MEDS: VANCOMYCIN INJ 1,250 MG in SODIUM CHLOR 0.9% 250 ML INJ 250 ML IV SCH ×2 (05:54→17:59)
[2017-05-01] MEDS: ACETAMINOPHEN/HYDROcodone 325 MG/7.5 MG TAB PO PRN (05:54)
[2017-05-01] MEDS: METOPROLOL TARTRATE 5 MG/5 ML VIAL IV PUSH PRN (05:54)
[2017-05-01] MEDS: INSULIN ASPART SUPPLEMENTAL SCALE SQ SCH ×4 (06:34→20:09)
[2017-05-01] MEDS: 1/2 NS + KCL 20 MEQ INJ 1,000 ML IV SCH (07:00)
--- NOTE | 2017-05-01 07:56 | HHI.CCPN ---
Subjective Remarks/Hospital Course 04/24: 76-year-old female with a medical history significant for prior stroke, diabetes mellitus who was admitted with DKA and a hip fracture for which she underwent ORIF on 04/21. Patient developed altered mental status and was last noted to be okay around 5:30 AM. Subsequently there was a change in her mental status and she was noted to not be moving her right side for which stroke alert was called. Head CT showed large left MCA territory ischemic infarct with edema. Patient was transferred to the ICU by family medicine service in the critical care consult was requested. I evaluated the patient following arrival to the ICU. At that time she was laying in bed with her eyes open however not following commands and had a dense right hemiplegia. Patient was also evaluated by Dr. Malave from neurology. I further discussed current event with patient's daughter following her arrival to the ICU. Per the daughter patient has been living with her since her stroke in 2014 and does ambulate however has been having problems with memory and incontinence as well as gait difficulties. She does not feel patient would want intubation or tracheostomy or PEG tube. 04/25: Patient remains encephalopathic, awake though not following commands consistently. Dense right hemiplegia persists. Appears to be awake enough to protect airway currently. Patient's daughter rescinded DNR and made a full code last evening. 04/26: Remains encephalopathic, not following commands. On Dobbhoff for tube feeds at 30 cc per hour. Had urinary retention and drained 2 L of urine after placing Leavitt catheter today. CT head done this morning with large left MCA territory infarct with left to right midline shift and significant cerebral edema. Hyperglycemia noted. Patient given mannitol earlier for increasing cerebral edema. 04/27: Remains encephalopathic, not following commands. On Dobbhoff tube feeds at 30 cc per hour. When into A. fib with RVR last night which responded with Lopressor 5 mg IV 1 dose. 04/28: Remains encephalopathic, arousable, not following commands. Moves left upper extremity spontaneously. Tolerating Dobbhoff tube feeds. Remains on nasal cannula. 04/29: Encephalopathic, eyes be arousable, moves left upper extremity spontaneously and occasionally opens eyes. Dense right hemiplegia and aphasia persists. On nasal cannula. Dobbhoff tube feeds being advanced. Patient was transfused 1 unit PRBCs yesterday. Urine culture with yeast from yesterday for which fluconazole being started. Had brief run of A. fib with RVR which improved with Lopressor IV, currently in sinus rhythm. 04/30: Worsening hypoxemic respiratory failure, currently on partial nonrebreather. Remains lethargic. WBC count increased from 14.6 today 20.7. Chest x-ray shows bilateral worsening infiltrates and small pleural effusions. Sodium 154, weight up by 8 KG. Albumin 1 mg Bumex 1. Also one dose of albumin. Remains in sinus tachycardia. Tmax 101.3 05/01: Patient was intubated yesterday for lack of airway protection, and severe hypoxemic respiratory failure from aspiration pneumonia involving multiple lobes. Patient is on the vent lethargic, no spontaneous eye opening. Chest x- ray remains unchanged. Remains intermittently febrile Tmax 101.3. WBC count improving Objective Vital Signs Date Time Temp Pulse Resp B/P (MAP) Pulse Ox O2 Delivery O2 Flow Rate FiO2 05/01/17 06:59 14 05/01/17 06:00 114 05/01/17 04:00 98.8 132/60 (84) 98 05/01/17 03:44 Ventilator 05/01/17 03:36 50 04/30/17 10:03 15.00 Intake and Output 05/01/17 05/01/17 05/01/17 07:59 15:59 23:59 Intake Total 858 ml Output Total 750 ml Balance 108 ml Result Diagram: 05/01/17 0429 05/01/17 0429 Other Results Laboratory Tests Test 04/30/17 08:17 Blood Gas Puncture Site RT RADIAL Blood Gas Patient Temperature 98.6 Blood Gas HCO3 30 mmol/L (22-26) Blood Gas Base Excess 5.7 mmol/L (-2-2) Blood Gas Oxygen Saturation 92 % (90-100) Arterial Blood pH 7.46 (7.380-7.420) Arterial Blood Partial Pressure CO2 43 mmHg (38-42) Arterial Blood Partial Pressure O2 71 mmHg (61-120) Arterial Blood Oxygen Content 13.5 Vol % (12.0-20.0) Arterial Blood Carboxyhemoglobin 1.6 % (0-4) Arterial Blood Methemoglobin 0.8 % (0-2) Blood Gas Hemoglobin 10.3 G/DL (12.0-16.0) Oxygen Delivery Device Partial Rebreather Blood Gas Liter Flow 15 L/M Imaging Last Impressions Head CT 04/24/17 0000 Signed Impressions: Service Date/Time: April 08:42 - CONCLUSION: 1. There is a large left MCA infarct. There is edema diffusely throughout the left MCA distribution. This would suggest completed infarct. The case was discussed with Dr. Ross. We did not feel the patient was a candidate for intracranial intervention due to the completed appearance of the infarct. 2. There is an old , encephalomalacic infarct involving the watershed distribution posteriorly on the left. Arnie Middleton MD Carotid Artery Ultrasound 04/24/17 0000 Signed Impressions: Service Date/Time: April 09:45 - CONCLUSION: 1. No hemodynamically significant carotid artery stenosis. Arnie Middleton MD Chest X-Ray 04/23/17 0000 Signed Impressions: Service Date/Time: Sunday, April 23, 2017 08:43 - CONCLUSION: Mild chronic interstitial changes. No acute abnormality. Deangelo Wren Jr., MD Hip X-Ray 04/21/17 0000 Signed Impressions: Service Date/Time: Friday, April 21, 2017 11:36 - CONCLUSION: Fluoroscopic images during placement of intramedullary siomara left femur. Benja Ramsey MD Hip and Pelvis X-Ray 04/20/17 0946 Signed Impressions: Service Date/Time: Thursday, April 20, 2017 10:36 - CONCLUSION: Mildly displaced intertrochanteric fracture. Benja Ramsey MD Objective Remarks Gen: Elderly female, lethargic, intubated not on sedation HEENT: Pallor present. Orotracheally intubated. Large amount of biggs ET tube secretions Neck: No JVD Chest/pulmonary:Air entry equal bilaterally, bilateral course rhonchi and scattered crackles Cardiovascular: S1-S2 regular, sinus tachycardia no gallop or murmur GI/abdomen: Soft, nontender, bowel sounds present. Extremities: Warm bilaterally, no edema. Incision site over left hip ORIF site clean dry and intact. Neuro: Intubated on no sedation.No Spontaneous eye opening. Dense right hemiplegia noted. Localizes with left upper extremity, Withdraws LLE. A/P Assessment and Plan Assessment: Large left MCA territory ischemic infarct Cerebral edema with midline shift Acute Encephalopathy Acute hypoxemic respiratory failure Severe sepsis HCAP/Suspected aspiration Right hemiplegia Left Hip fracture status post ORIF (04/21) Diabetes mellitus Fungal UTI Prior stroke Urinary retention Plan: Neuro: Follow neuro status closely. Aspirin per Dr. Malave Patient was not a candidate for thrombolysis per discussion with neurology and radiology. Repeat head CT 04/30 showed slight improvement in the midline shift and mass effect Neurosurgery consulted yesterday Dr. López, recommended conservative management Mannitol 12.5 g IV every 6 hourly for cerebral edema, hold for ser osm >310. Follow serial osmolality. Na154, target 145-155 Continue normal saline Cardiovascular: IV hydration, watch for hypotension. Antihypertensives to keep systolic blood pressure less than to 180 mmHg NS at 84 ml per hour Pulmonary: Intubated on 04/30/17 for worsening hypoxemic respiratory failure, aspiration pneumonia Chest x-ray shows increasing bilateral infiltrates and increasing white count secondary to worsening sepsis CT of the chest 04/30/17 showed severe bibasilar consolidation, and evidence of aspiration Patient may need tracheostomy due to lack of airway protection d/w family and palliative Daughter at this time wants to hold off on tracheostomy GI/liver: Dobbhoff for tube feedings and medications. Having BM Endocrine: Insulin sliding scale. Continue Levemir, but increase dose to 20 U q12hr /renal: Strict intake output, monitor and replete electrolytes, follow BUN/creatinine. Leavitt catheter placed for urinary retention on 04/26. Heme: Follow CBC and coags. ID: Urine culture growing C glabrata from 04/28. changed fluconazole 200 mg IV daily to Micafungin 100 mg IV 04/30/17 Started on Flagyl 500 mg IV daily on 04/29. Cefepime antipseudomonal dosing and vancomycin added 04/30/17 F/U sputum cx. Follow-up on blood cultures from 04/29 [facility] 09/04 possible contaminant Prophylaxis: SCDs. Start Lovenox 40 mg sq daily-cleared by Dr. Malave I had extensive discussion with daughter on 04/30/17, and I explained poor prgnosis due to massive stroke. I explain her lack of airway protection and need for endotracheal intubation and mechanical ventilation which she agreed. To continue aggressive care patient may need tracheostomy but daughter wants to hold this off for now to see clinical progress. Daughter wish to continue full CODE STATUS at this time. Being followed by palliative care team. 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 Condition critical. Prognosis appears poor. CCT 35 MIN excluding procedures Meg Mak MD May 01, 2017 07:56
[2017-05-01] MEDS: SODIUM CHLOR 0.9% 1000 ML INJ 1,000 ML IV SCH ×2 (08:33→21:36)
[2017-05-01] MEDS: SODIUM CHLORIDE 0.9% FLUSH 5 ML FLUSH IV FLUSH SCH ×2 (09:00→20:07)
[2017-05-01] MEDS: CHOLECALCIFEROL (VIT D3) 5000 UNIT CAP PO SCH (09:21)
[2017-05-01] MEDS: CALCIUM/VITAMIN D 250 MG/125 U TAB PO SCH ×3 (09:21→17:20)
[2017-05-01] MEDS: ASPIRIN 325 MG TAB DOBHOFF SCH (09:21)
[2017-05-01] MEDS: DOCUSATE SODIUM 50 MG/SENNA 8.6 MG TAB PO SCH ×2 (09:21→20:06)
[2017-05-01] MEDS: ENOXAPARIN SODIUM 40 MG/0.4 ML SYRINGE SQ SCH (09:21)
[2017-05-01] MEDS: INSULIN DETEMIR 100 UNITS/ML VIAL SQ SCH ×2 (09:49→20:58)
[2017-05-01] MEDS: MICAFUNGIN INJ 100 MG in SODIUM CHLORIDE 0.9% INJ 100 ML IV SCH (10:08)
--- NOTE | 2017-05-01 10:23 | HHI.FPPN ---
Subjective Remarks Patient seen and examined this morning. Patient was intubated yesterday, due to lack of airway protection and possible aspiration pneumonia with surgery failure. Patient v on ventilator this morning, lethargic. Tachycardic and temperature to 101.3 overnight. (Moisés Hanson MD, R2) Objective Vitals Vital Signs Date Time Temp Pulse Resp B/P (MAP) Pulse Ox O2 Delivery O2 Flow Rate FiO2 05/01/17 09:29 99 45 05/01/17 08:00 98.9 112 14 132/67 (88) 100 05/01/17 07:27 100 50 05/01/17 07:27 50 05/01/17 07:00 100 Mechanical Ventilator 40 05/01/17 06:59 14 05/01/17 06:00 114 05/01/17 04:00 96 05/01/17 04:00 98.8 98 14 132/60 (84) 98 05/01/17 03:44 100 Ventilator 05/01/17 03:36 100 50 05/01/17 02:00 84 05/01/17 00:21 100 Ventilator 05/01/17 00:10 100 60 05/01/17 00:00 101 05/01/17 00:00 101.3 101 23 123/62 (82) 100 04/30/17 22:00 98 04/30/17 20:00 98.0 92 17 112/57 (75) 100 04/30/17 20:00 94 04/30/17 19:31 100 Ventilator 04/30/17 19:24 100 100 04/30/17 19:00 100 Mechanical Ventilator 80 04/30/17 18:00 104 04/30/17 16:00 98 04/30/17 16:00 98.3 99 14 136/55 (82) 100 04/30/17 15:15 100 100 04/30/17 14:00 96 04/30/17 12:00 116 04/30/17 12:00 98.2 116 14 128/62 (84) 96 I/O 04/30/17 04/30/17 04/30/17 05/01/17 05/01/17 05/01/17 06:59 14:59 22:59 06:59 14:59 22:59 Intake Total 1268 ml 308 ml 773 ml 858 ml 712 ml Output Total 500 ml 1150 ml 750 ml Balance 768 ml 308 ml -377 ml 108 ml 712 ml IV Total 753 ml 308 ml 622 ml 100 ml 712 ml Tube Feeding 455 ml 91 ml 658 ml Other 60 ml 60 ml 100 ml Output Urine Total 500 ml 1150 ml 750 ml # Bowel Movements 1 0 0 (Moisés Hanson MD, R2) Result Diagram: 05/01/1742805/01/17 042 Imaging Last Impressions Chest X-Ray 05/01/17 0600 Signed Impressions: Service Date/Time: April 04:13 - CONCLUSION: 1. Support apparatus in satisfactory position. Basilar and right upper lobe airspace disease similar to April 30. Jaime Velasquez MD Head CT 04/30/17 0000 Signed Impressions: Service Date/Time: Sunday, April 30, 2017 09:10 - CONCLUSION: Reduction in the midline shift from 14 to11 mm. Unchanged large left MCA territory infarction. Deangelo Wren Jr., MD Chest CT 04/30/17 0000 Signed Impressions: Service Date/Time: Sunday, April 30, 2017 09:20 - CONCLUSION: 1. Bilateral pulmonary infiltrates more pronounced within the lower lobes with tiny bilateral pleural effusions. Material seen filling the lower lobe bronchi bilaterally either related to purulent material or perhaps mucus plugging. Deangelo Wren Jr., MD Abdomen X-Ray 04/25/17 0000 Signed Impressions: Service Date/Time: Tuesday, April 25, 2017 14:56 - CONCLUSION: 1. Feeding tube distal tip in the gastric body. 2. Partially visualized calcified uterine fibroids. Obdulio Sam MD Carotid Artery Ultrasound 04/24/17 0000 Signed Impressions: Service Date/Time: April 09:45 - CONCLUSION: 1. No hemodynamically significant carotid artery stenosis. Arnie Middleton MD Hip X-Ray 04/21/17 0000 Signed Impressions: Service Date/Time: Friday, April 21, 2017 11:36 - CONCLUSION: Fluoroscopic images during placement of intramedullary siomara left femur. Benja Ramsey MD Hip and Pelvis X-Ray 04/20/17 0946 Signed Impressions: Service Date/Time: Thursday, April 20, 2017 10:36 - CONCLUSION: Mildly displaced intertrochanteric fracture. Benja Ramsey MD Objective Remarks CONSTITUTIONAL/GEN: Nonverbal, lying in bed. Intubated, sedated LUNGS: coarse breath sounds throughout, rhonchi bilaterally CARDIOVASCULAR: Tachycardic. Regular rate without murmur or gallop. GI/ABD: soft without masses, without organomegaly. NEURO: Intubated and sedated. No spontaneous eye opening. MUSC: Bandages on lateral left hip and thigh are clean dry and intact. Procedures ORIF 04/21/17 Intubation 04/30/17 (Moisés Hanson MD, R2) Urinary Catheter: Yes Assessment to: Continue Leavitt insert reason: Obstruction/Retention (Moisés Hanson MD, R2) A/P Assessment and Plan 76 y/o female with HTN, DM, CVA admitted for DKA and hip fracture. Now with large MCA stroke. Neuro and progressive care unit registered nurse consulted. Working with palliative care for goals of care. Discharge Planning Pending stroke progression and discussion for goals of care (Moisés Hanson MD, R2) Attending Attestation Patient seen and examined. Case reviewed and discussed Agree with plan of care as discussed with me and documented in the resident note. Appreciate [facility], Dr. Mak Spoke with Dr. Mak and daughter at the bedside. (Angélica Malik MD) Problem List: (1) Acute CVA (cerebrovascular accident) ICD Codes: I63.9 - Cerebral infarction, unspecified Status: Acute Plan: Patient found minimally responsive with neurological deficits around 0820 04/24. Stat CT of head was ordered, which showed large left MCA infarct. Diffuse edema throughout the left MCA distribution, suggest completed infarct. This was discussed and was not a candidate for intracranial intervention. Repeat CT 04/28 shows increasing edema left hemisphere with 1.4cm left to right shift. CT (04/30): Reduction in midline shift to 11mm. Unchanged large left MCA infarction. Echocardiogram- The left ventricular systolic function is low normal with an estimated ejection fraction in the range of 50-55%. Mild concentric left ventricular hypertrophy. Normal left ventricular size. [id number] mitral valve regurgitation. Carotid Artery US- No hemodynamically significant carotid stenosis -Consulted progressive care unit registered nurse, appreciate recs -Intubated/sedated; may need tracheostomy -IV hydration, watch for hypotension. -Keep systolic to less than 220 -1/2NS -Neurosurgery consulted -Recommended conservative management -Keep Na in low to mid 150 range -Restart tube feeds: Glucerna 1.5 mLs for diet via Dobbhoff tube -Wet Process Head Miller consult for management and recs -Consult palliative care-appreciate recs -Case discussed with daughter in-person about goals of care, limited treatment options, and poor prognosis. -Daughter continues to want aggressive care. May need tracheostomy, daughter wants to refrain for now -Neurology consulted-appreciate recs -Rectal ASA -Can start lovenox 40mg daily (2) Sepsis ICD Codes: A41.9 - Sepsis, unspecified organism Plan: Pt meets SIRS criteria: WBC elevated to 20.7. HR up to 122. RR 20. Febrile to 101.3 Source of infection, likely pulmonary vs urinary -See antibiotics as below -Await cultures -Monitor vitals (3) HCAP (healthcare-associated pneumonia) ICD Codes: J18.9 - Pneumonia, unspecified organism Plan: CXR (04/30): Bilateral airspace disease and effusions Chest CT (04/30): Bilateral pulmonary infiltrates more pronounced within lower lobes with b/l pleural effusions. Material in lower lobe bronchi b/l, purulent or mucus plugging Suspect possible HCAP with increasing leukocytosis and fevers. Possible aspiration -Flagyl 500mg q8H (04/29 - ) -Cefepime 2g IV daily (04/30 - ) -Vancomycin IV (04/30 - ) -Sputum culture pending -Repeat blood cultures, with 1/4 positive; possible contaminant (4) Yeast UTI ICD Codes: B37.49 - Other urogenital candidiasis Status: Acute Plan: UA showed glucose, large number of leukocytes esterase, innumerable WBCs , rare bacteria, and few yeast Urine culture shows Lea Glabrata -Changed fluconazole to Micafungin 100mg IV daily (5) Type 2 diabetes mellitus ICD Codes: E11.9 - Type 2 diabetes mellitus without complications Status: Chronic Plan: Admitted for DKA which has now resolved. Hemoglobin A1C is 12.9. Diabetes is uncontrolled. - Increase Levemir 20 units BID - Medium dose insulin sliding scale - Glucerna for NG tube feedings - Regular accuchecks q4H - Continue IV hydration (6) Atrial fibrillation ICD Codes: I48.91 - Unspecified atrial fibrillation Status: Acute Plan: Hx of intermittent Afib. Resolved with administration of Lopressor. -Continue to monitor -Lopressor PRN (7) Hip fracture ICD Codes: S72.009A - Fracture of unspecified part of neck of unspecified femur , initial encounter for closed fracture Status: Acute Plan: S/P left hip reduction ad intramedullary nail fixation on 04-21-17 -Consult orthopedics-appreciate recs * Cleared for discharge to rehabilitation * WBAT * Daily dressing changes * CM for rehabilitation placement * Follow-up in 2 weeks -Calcium/Vitamin D -Fluids as above -Tylenol, morphine PRN pain (8) Hypertension ICD Codes: I10 - Essential (primary) hypertension Status: Acute Plan: IV hydration. BPs labile -Continue fluids as above -Antihypertensives to keep SBP<180 (9) Fluids, Electrolytes, and Nutrition Status: Acute Plan: Fluids: IVF Electrolyte: on electrolyte protocol Nutrition: Glucerna tube feeds DVT ppx: SCDs/lovenox GI ppx: protonix (Moisés Hanson MD, R2) Problem Qualifiers (1) Sepsis: Qualified Codes: A41.9 - Sepsis, unspecified organism (2) Type 2 diabetes mellitus: Qualified Codes: E11.9 - Type 2 diabetes mellitus without complications (3) Atrial fibrillation: Qualified Codes: I48.0 - Paroxysmal atrial fibrillation (4) Hip fracture: Qualified Codes: S72.002A - Fracture of unspecified part of neck of left femur , initial encounter for closed fracture (5) Hypertension: Qualified Codes: I10 - Essential (primary) hypertension Moisés Hanson MD, R2 May 01, 2017 10:23 Angélica Malik MD May 02, 2017 10:44
[2017-05-01 14:19] LABS: PHOSPHORUS 1.5 MG/DL (2.5-4.9)
--- NOTE | 2017-05-01 15:17 | HHI.HCPN ---
Reason for visit a. To assist with evaluation and management of symptoms including: Debility and pain. b. To assist medical decision maker(s) with: better understanding of current medical conditions; weighing benefits/burdens of medical treatment options; making medical treatment decisions. . Subjective/Interval History Mrs. Hein date a 76-year-old female with a past medical history of hypertension , diabetes mellitus and CVA who presented to the ED on 04/20/17 via EMS for evaluation of after a fall. Upon ED admission, random glucose 559. Patient underwent Left hip reduction and intramedullary nail fixation on 04/21/17. Clinical course complicated by large left MCA infarct with diffuse edema throughout the left MCA distribution. Neurology, Dr. Malave consulted. Patient not a candidate for intervention, not a candidate for IV TPA. As per neurology "Christina 4Id the prognosis with a stroke of the size is poor". Palliative care consulted for further clarifications of goals of care given poor prognosis. Clinical course complicated by severe hypoxemia respiratory failure from aspiration pneumonia. Patient was electrical intubated and placed on mechanical ventilation yesterday 04/30/17. Neurosurgery, consulted . Conservative treatment for CVA and edema recommended. No neurosurgical interventions at this point. Patient remains lethargic, not following any commands or attempting to communicate. FiO2 40%, oxygen saturation in the mid to high 90s. Stable hemodynamically. Max temp 101.3 overnight. Chest x-ray today revealing basilar right upper lobe airspace disease. Blood culture positive for staph Aureus. Sputum culture 04/30/17 positive for staph Aureus and gram-negative rods. Laboratory workup today revealing WBC 14.5, Hgb 7.9, platelet count 281. BUN/creatinine 41/0.67. Albumin 1.3. Palliative care attempted to contact patient's daughter Norma via telephone multiple times throughout the day. Left message in voicemail. Daughter had the opportunity to receive a medical update and discuss case with aquatic director Dr. Mak yesterday. Poor prognosis has been previously discussed during multiple palliative care encounters. Daughter wishing to proceed with aggressive management at this time. . Family/friend interactions See interval. . Advance Directives Living Will: Never completed Health Care Surrogate: Never completed Durable Power of Infrastructure Engineer: Never completed Advance Directive Specifics Health Care Surrogate(s): No advance directives completed. As per [place] statute, healthcare proxy decision making falls to patient's only daughter Norma Salvador. . Documented care wishes: No living will completed. . Significant change in goals: Goals of care remain unchanged. . Objective Vital Signs Date Time Temp Pulse Resp B/P (MAP) Pulse Ox O2 Delivery O2 Flow Rate FiO2 05/01/17 14:49 93 45 05/01/17 12:45 96 45 05/01/17 12:00 92 05/01/17 12:00 99.1 92 28 138/65 (89) 97 05/01/17 10:00 79 05/01/17 09:29 99 45 05/01/17 08:00 98.9 112 14 132/67 (88) 100 05/01/17 08:00 80 05/01/17 07:27 100 50 05/01/17 07:27 50 05/01/17 07:00 100 Mechanical Ventilator 40 05/01/17 06:59 14 05/01/17 06:00 114 05/01/17 04:00 96 05/01/17 04:00 98.8 98 14 132/60 (84) 98 05/01/17 03:44 100 Ventilator 05/01/17 03:36 100 50 05/01/17 02:00 84 05/01/17 00:21 100 Ventilator 05/01/17 00:10 100 60 05/01/17 00:00 101 05/01/17 00:00 101.3 101 23 123/62 (82) 100 04/30/17 22:00 98 04/30/17 20:00 98.0 92 17 112/57 (75) 100 04/30/17 20:00 94 04/30/17 19:31 100 Ventilator 04/30/17 19:24 100 100 04/30/17 19:00 100 Mechanical Ventilator 80 04/30/17 18:00 104 04/30/17 16:00 98 04/30/17 16:00 98.3 99 14 136/55 (82) 100 04/30/17 15:15 100 100 Intake & Output 05/01/17 05/01/17 07:00 19:00 Intake Total 1108 ml 812 ml Output Total 750 ml Balance 358 ml 812 ml IV Total 350 ml 812 ml Tube Feeding 658 ml Other 100 ml Output Urine Total 750 ml # Bowel Movements 0 Physical Exam CONSTITUTIONAL/GENERAL: This is an elderly female resting in bed. Unresponsive to verbal or tactile stimuli. Orally intubated on mechanical ventilation. Not sedated. TUBES/LINES/DRAINS: PIV's. Dobbhoff to right nare. ETT, Leavitt catheter, left soft wrist restraint. SKIN: No jaundice, rashes, or lesions. Ecchymoses on upper extremities. Skin temperature appropriate. Not diaphoretic. Surgical incision to left hip, covered in dressing. Dressing dry and intact. HEAD: Atraumatic. Normocephalic. EYES: Pupils equal and round and reactive. No scleral icterus. No injection or drainage. ENT: Unable to evaluate hearing secondary to clinical condition. Nose without bleeding or purulent drainage. Moist oral mucosa. Dobbhoff to right nare. NECK: Trachea midline. Supple. CARDIOVASCULAR: Regular rate and rhythm. Peripheral pulses symmetric. RESPIRATORY/CHEST: Symmetric, orally intubated on mechanical ventilation. Coarse bilaterally. GASTROINTESTINAL: Abdomen soft, round, mildly distended. Bowel sounds present. GENITOURINARY: Without palpable bladder distension. MUSCULOSKELETAL: Extremities without clubbing, cyanosis, or edema. NEUROLOGICAL: Lethargic. Unresponsive to verbal or tactile stimuli. Not sedated. PSYCHIATRIC: Unable to evaluate secondary to clinical condition. . Diagnostic Tests Laboratory Laboratory Tests Test 04/28/17 16:34 04/29/17 04:10 04/30/17 04:36 04/30/17 08:17 Hemoglobin 8.7 GM/DL (11.6-15.3) 9.0 GM/DL (11.6-15.3) 10.3 GM/DL (11.6-15.3) Hematocrit 25.9 % (35.0-46.0) 28.0 % (35.0-46.0) 31.4 % (35.0-46.0) White Blood Count 14.6 TH/MM3 (4.0-11.0) 20.7 TH/MM3 (4.0-11.0) Red Blood Count 2.88 MIL/MM3 (4.00-5.30) 3.24 MIL/MM3 (4.00-5.30) Mean Corpuscular Volume 96.9 FL (80.0-100.0) 96.9 FL (80.0-100.0) Mean Corpuscular Hemoglobin 31.1 PG (27.0-34.0) 31.7 PG (27.0-34.0) Mean Corpuscular Hemoglobin Concent 32.1 % (32.0-36.0) 32.7 % (32.0-36.0) Red Cell Distribution Width 14.1 % (11.6-17.2) 14.4 % (11.6-17.2) Platelet Count 187 TH/MM3 (150-450) 265 TH/MM3 (150-450) Mean Platelet Volume 8.9 FL (7.0-11.0) 9.6 FL (7.0-11.0) CBC Comment AUTO DIFF Differential Total Cells Counted 100 Neutrophils % (Manual) 65 % (16-70) Band Neutrophils % 26 % (0-6) Lymphocytes % 5 % (9-44) Monocytes % 3 % (0-8) Neutrophils # (Manual) 13.4 TH/MM3 (1.8-7.7) Metamyelocytes 1 % (0-1) Nucleated Red Blood Cells 1 /100 WBC (0-0) Differential Comment FINAL DIFF MANUAL Platelet Estimate NORMAL (NORMAL) Platelet Morphology Comment NORMAL (NORMAL) Polychromasia 2.0 % (0.0-1.9) Blood Urea Nitrogen 36 MG/DL (7-18) 37 MG/DL (7-18) Creatinine 0.48 MG/DL (0.50-1.00) 0.53 MG/DL (0.50-1.00) Random Glucose 134 MG/DL (74-106) 233 MG/DL (74-106) Calcium Level 8.0 MG/DL (8.5-10.1) 8.3 MG/DL (8.5-10.1) Phosphorus Level 2.3 MG/DL (2.5-4.9) 1.2 MG/DL (2.5-4.9) Magnesium Level 2.2 MG/DL (1.5-2.5) Sodium Level 152 MEQ/L (136-145) 154 MEQ/L (136-145) Potassium Level 3.4 MEQ/L (3.5-5.1) 3.9 MEQ/L (3.5-5.1) Chloride Level 120 MEQ/L (98-107) 118 MEQ/L (98-107) Carbon Dioxide Level 26.1 MEQ/L (21.0-32.0) 29.4 MEQ/L (21.0-32.0) Anion Gap 6 MEQ/L (5-15) 7 MEQ/L (5-15) Estimat Glomerular Filtration Rate 126 ML/MIN (>89) 113 ML/MIN (>89) Serum Osmolality 345 MOSM/KG (275-295) Blood Gas Puncture Site RT RADIAL Blood Gas Patient Temperature 98.6 Blood Gas HCO3 30 mmol/L (22-26) Blood Gas Base Excess 5.7 mmol/L (-2-2) Blood Gas Oxygen Saturation 92 % (90-100) Arterial Blood pH 7.46 (7.380-7.420) Arterial Blood Partial Pressure CO2 43 mmHg (38-42) Arterial Blood Partial Pressure O2 71 mmHg (61-120) Arterial Blood Oxygen Content 13.5 Vol % (12.0-20.0) Arterial Blood Carboxyhemoglobin 1.6 % (0-4) Arterial Blood Methemoglobin 0.8 % (0-2) Blood Gas Hemoglobin 10.3 G/DL (12.0-16.0) Oxygen Delivery Device Partial Rebreather Blood Gas Liter Flow 15 L/M Test 05/01/17 04:29 05/01/17 13:32 White Blood Count 14.5 TH/MM3 (4.0-11.0) Red Blood Count 2.53 MIL/MM3 (4.00-5.30) Hemoglobin 7.9 GM/DL (11.6-15.3) Hematocrit 24.5 % (35.0-46.0) Mean Corpuscular Volume 96.8 FL (80.0-100.0) Mean Corpuscular Hemoglobin 31.2 PG (27.0-34.0) Mean Corpuscular Hemoglobin Concent 32.2 % (32.0-36.0) Red Cell Distribution Width 14.5 % (11.6-17.2) Platelet Count 281 TH/MM3 (150-450) Mean Platelet Volume 9.5 FL (7.0-11.0) Neutrophils (%) (Auto) 85.7 % (16.0-70.0) Lymphocytes (%) (Auto) 9.3 % (9.0-44.0) Monocytes (%) (Auto) 4.1 % (0.0-8.0) Eosinophils (%) (Auto) 0.4 % (0.0-4.0) Basophils (%) (Auto) 0.5 % (0.0-2.0) Neutrophils # (Auto) 12.5 TH/MM3 (1.8-7.7) Lymphocytes # (Auto) 1.3 TH/MM3 (1.0-4.8) Monocytes # (Auto) 0.6 TH/MM3 (0-0.9) Eosinophils # (Auto) 0.1 TH/MM3 (0-0.4) Basophils # (Auto) 0.1 TH/MM3 (0-0.2) CBC Comment AUTO DIFF Differential Total Cells Counted 100 Neutrophils % (Manual) 76 % (16-70) Band Neutrophils % 11 % (0-6) Lymphocytes % 7 % (9-44) Monocytes % 5 % (0-8) Neutrophils # (Manual) 12.8 TH/MM3 (1.8-7.7) Myelocytes 1 % (0-0) Differential Comment FINAL DIFF MANUAL Platelet Estimate NORMAL (NORMAL) Platelet Morphology Comment NORMAL (NORMAL) Red Cell Morphology Comment NORMAL (NORMAL) Blood Urea Nitrogen 41 MG/DL (7-18) Creatinine 0.67 MG/DL (0.50-1.00) Random Glucose 230 MG/DL (74-106) Total Protein 5.1 GM/DL (6.4-8.2) Albumin 1.3 GM/DL (3.4-5.0) Calcium Level 8.0 MG/DL (8.5-10.1) Magnesium Level 2.2 MG/DL (1.5-2.5) Alkaline Phosphatase 351 U/L (45-117) Aspartate Amino Transf (AST/SGOT) 51 U/L (15-37) Alanine Aminotransferase (ALT/SGPT) 36 U/L (10-53) Total Bilirubin 0.4 MG/DL (0.2-1.0) Sodium Level 154 MEQ/L (136-145) Potassium Level 4.0 MEQ/L (3.5-5.1) 3.7 MEQ/L (3.5-5.1) Chloride Level 119 MEQ/L (98-107) Carbon Dioxide Level 28.5 MEQ/L (21.0-32.0) Anion Gap 7 MEQ/L (5-15) Estimat Glomerular Filtration Rate 86 ML/MIN (>89) Phosphorus Level 1.5 MG/DL (2.5-4.9) Result Diagram: 05/01/17 0429 05/01/17 1332 Microbiology Microbiology Date/Time Source Procedure Growth Status 04/29/17 17:05 Blood Peripheral Aerobic Blood Culture - Preliminary NO GROWTH IN 2 DAYS Resulted 04/29/17 17:05 Anaerobic Blood Culture - Preliminary Staphylococcus Aureus Resulted 04/29/17 17:00 Blood Peripheral Aerobic Blood Culture - Preliminary NO GROWTH IN 2 DAYS Resulted 04/29/17 17:00 Blood Peripheral Anaerobic Blood Culture - Preliminary NO GROWTH IN 2 DAYS Resulted 04/30/17 18:00 Sputum Endotracheal Gram Stain - Final Resulted 04/30/17 18:00 Sputum Culture - Preliminary Staphylococcus Aureus Gram Negative Juan Resulted Imaging Last 24 hours Impressions Chest X-Ray 05/01/17 0600 Signed Impressions: Service Date/Time: , May 01, 2017 04:13 - CONCLUSION: 1. Support apparatus in satisfactory position. Basilar and right upper lobe airspace disease similar to April 30. Jaime Velasquez MD Procedures * 04/30/17 -endotracheal intubation * 04/21/17 -Left hip reduction and intramedullary nail fixation . Assessment and Plan Disease Oriented Problem List: (1) Acute respiratory failure (2) Acute CVA (cerebrovascular accident) (3) Pneumonia (4) Atrial fibrillation with RVR (5) Hypertension (6) Hip fracture Symptom Scale: (1) Pain 0-10 Scale: Unable to quantify Comment: Secondary to recent surgical intervention (2) Debility 0-10 Scale: Unable to quantify Comment: Progressive. (3) Shortness of breath 0-10 Scale: Unable to quantify Comment: Increased oxygen requirement. Currently on nonrebreather mask at 15 L. Pertinent Non-Medical Issues Psychosocial: Patient is originally from [place]. Residing in [place] up until 2013 she moved to [place] to live with only daughter Trice. Patient is a , in 2006. Spiritual: No yazidi affiliation. Legal: No advance directives completed. Ethical issues impacting care: Patient unable to participating in medical decision-making secondary to clinical condition. Patient's daughter acting as healthcare proxy decision maker. . Important Contacts Daughter Norma Salvador . . Prognosis Mrs. Hein needs a 76-year-old female with a past medical history of hypertension, diabetes mellitus and prior CVA. Presented with left hip fracture , underwent ORIF. Clinical course complicated by large left MCA infarct with edema. Overall prognosis is poor for a meaningful neurological recovery or long -term survival given acute stroke, chronic ongoing comorbidities and advanced age. Patient appears hospice appropriate should family elects comfort-directed care. . Code Status: Full Code Plan * CODE STATUS: FULL CODE. Code status readdressed 04/30/17. Risks, benefits and limitations of CPR, intubation and mechanical ventilation has been discussed at length with daughter Norma. * HEALTHCARE DECISION-MAKING: Patient unable to participate in medical decision- making secondary to clinical condition, minimally responsive post CVA. No advance directives completed, patient is . As per [place] statute, healthcare proxy decision-making falls to patient's only daughter Trice Salvador. * GOALS OF CARE: 05/01/17: Palliative care attempted to contact patient's daughter Norma via telephone multiple times throughout the day. Left message in voicemail. Poor prognosis has been previously discussed during multiple palliative care encounters as well as with aquatic director Dr. Mak. Daughter wishing to proceed with aggressive management at this time. * SYMPTOMS: = Shortness of breath, multifactorial. Secondary to altered mental status/CVA, pneumonia, lethargy. Intubated and placed on mechanical ventilation. = Pain, secondary to recent surgical intervention. Morphine IV available as needed. = Debility, progressive. Likely to continue to worsen given recent acute stroke. * Palliative care contact information has been provided to patient's daughter. * Ongoing emotional support and active listening provided. Spiritual services following. * Palliative care will continue to follow-up for further clarifications of goals of care as patient's clinical condition continues to evolve. . Time Spent Total Floor Time (mins): 25 (Total time to include review of medical records, physical exam, in attendance to contact patient's daughter via telephone, case discussion with bedside RN.) >50% Counseling/Coord of Care: Yes Attestation To help prompt me to consider important information that might be impacting today's encounter and assessment, information from prior notes written by myself or my colleagues may have been "brought forward" into today's note. My signature on this note, however, is an attestation that I personally performed the exam, history, and/or decision-making noted today, and, unless otherwise indicated, the interactions with patient, family, and staff as well as the review of records all occurred today. I also attest that the listed assessment and stated plan reflect my best clinical judgment today based on the combination of historical information, prior notes, and today's exam/ interactions. When time spent is documented, it refers only to time spent today by the signer, or if indicated, combined time spent today by collaborating physician/nurse practitioner. Ashly Steven May 01, 2017 15:16
[2017-05-01] MEDS: PANTOPRAZOLE SODIUM 40 MG VIAL IV PUSH SCH (17:20)
[2017-05-01] MEDS: ACETAMINOPHEN 325 MG TAB PO PRN (20:07)
[2017-05-02] VITALS (19 sets, daily range): BP systolic 132–148; BP diastolic 60–67; PULSE 68–107; RESP 13–20; TEMP 98.9–101.7; O2SAT 34–97
[2017-05-02] MEDS: CEFEPIME INJ 2,000 MG in SODIUM CHLORIDE 0.9% INJ 100 ML IV SCH ×3 (00:15→17:01)
[2017-05-02] MEDS: RESP: ALBUTEROL 2.5 MG/IPRATROPIUM 0.5 MG NEB (SCH) NEB ×4 (03:27→20:39)
--- NOTE | 2017-05-02 04:50 | RADRPT ---
EXAM DATE/TIME: 05/02/2017 04:02 [facility] COMPARISON: CHEST SINGLE AP, May 01, 2017, 4:13. INDICATIONS : Respiratory failure, possible pulmonary disease MEDICAL HISTORY : Hypertension. Diabetes mellitus type I. SURGICAL HISTORY : None. ENCOUNTER: Subsequent ACUITY: 1 week PAIN SCORE: Non-responsive. LOCATION: Bilateral chest FINDINGS: Portable AP view of the chest demonstrates a normal-sized cardiac silhouette. Endotracheal tube measu res 9 mm from the valerie and feeding tube courses beyond the GE junction. Lungs are underinflated and there is minimal or lungs airspace consolidation bilaterally and a left pleural-based opacity. No pn eumothorax is visualized. CONCLUSION: Increased airspace opacity bilaterally. The pattern may represent pulmonary edema. There is likely a left pleural effusion. Obdulio Sam MD on May 02, 2017 at 4:43 Board Certified Radiologist. This report was verified electronically.
[2017-05-02 05:27] LABS: AUTOMATED NEUTROPHIL # 18.1 TH/MM3 (1.8-7.7); BASOPHIL % 0.1 % (0.0-2.0); EOSINOPHIL # 0.2 TH/MM3 (0-0.4); EOSINOPHIL % 0.8 % (0.0-4.0); HEMATOCRIT 26.4 % (35.0-46.0); HEMOGLOBIN 8.4 GM/DL (11.6-15.3); LYMPH % 13.1 % (9.0-44.0); LYMPHOCYTE # 2.9 TH/MM3 (1.0-4.8); MEAN CELL VOLUME 97.3 FL (80.0-100.0); MEAN CORPUSCULAR HGB CONC 31.9 % (32.0-36.0); MONO % 3.7 % (0.0-8.0); MONOCYTE # 0.8 TH/MM3 (0-0.9); NEUT % 82.3 % (16.0-70.0); PLATELET COUNT 307 TH/MM3 (150-450); RED BLOOD COUNT 2.71 MIL/MM3 (4.00-5.30)
[2017-05-02] MEDS ORDERED: PHARMACY ORDERED LAB ONE (05:45)
[2017-05-02] MEDS: VANCOMYCIN INJ 1,250 MG in SODIUM CHLOR 0.9% 250 ML INJ 250 ML IV SCH ×2 (06:02→17:02)
[2017-05-02] MEDS: metroNIDAZOLE 500 MG TAB DOBHOFF SCH ×3 (06:02→20:31)
[2017-05-02 06:04] LABS: ALBUMIN 1.2 GM/DL (3.4-5.0); ALKALINE PHOSPHATASE 473 U/L (45-117); ALT (GPT) 39 U/L (10-53); AST (GOT) 75 U/L (15-37); BICARBONATE 28.1 MEQ/L (21.0-32.0); BLOOD UREA NITROGEN 41 MG/DL (7-18); CHLORIDE 122 MEQ/L (98-107); CREATININE 0.56 MG/DL (0.50-1.00); GLOMERULAR FILTRATION RATE 106 ML/MIN (>89); GLUCOSE,RANDOM 184 MG/DL (74-106); MAGNESIUM 2.2 MG/DL (1.5-2.5); TOTAL BILIRUBIN ADULT 0.5 MG/DL (0.2-1.0); TOTAL PROTEIN 5.3 GM/DL (6.4-8.2)
[2017-05-02 06:14] LABS: SODIUM (NA) 157 MEQ/L (136-145)
[2017-05-02] MEDS: INSULIN ASPART SUPPLEMENTAL SCALE SQ SCH ×4 (06:47→20:33)
[2017-05-02 06:59] LABS: BANDS 17 % (0-6); CORRECTED NUCLEATED RBC 2 /100 WBC (0-0); LYMPHOCYTES 7 % (9-44); METAMYELOCYTES 1 % (0-1); MONOCYTES 3 % (0-8); MYELOCYTES 1 % (0-0); NEUTROPHIL # MANUAL DIFF 19.8 TH/MM3 (1.8-7.7); NUCLEATED RED BLOOD CELL 2 (0-0); POLYS (SEG NEUTROPHILS) 71 % (16-70)
[2017-05-02] MEDS: SODIUM CHLORIDE 0.9% FLUSH 5 ML FLUSH IV FLUSH SCH ×2 (08:27→20:32)
[2017-05-02] MEDS: INSULIN DETEMIR 100 UNITS/ML VIAL SQ SCH ×2 (09:23→20:33)
[2017-05-02] MEDS: SODIUM CHLOR 0.9% 1000 ML INJ 1,000 ML IV SCH (09:24)
[2017-05-02] MEDS: ASPIRIN 325 MG TAB DOBHOFF SCH (09:24)
[2017-05-02] MEDS: CHOLECALCIFEROL (VIT D3) 5000 UNIT CAP PO SCH (09:24)
[2017-05-02] MEDS: CALCIUM/VITAMIN D 250 MG/125 U TAB PO SCH ×3 (09:24→17:02)
[2017-05-02] MEDS: DOCUSATE SODIUM 50 MG/SENNA 8.6 MG TAB PO SCH ×2 (09:24→20:31)
[2017-05-02] MEDS: ENOXAPARIN SODIUM 40 MG/0.4 ML SYRINGE SQ SCH (09:24)
[2017-05-02] MEDS: ACETAMINOPHEN 325 MG TAB PO PRN (09:39)
[2017-05-02] MEDS: MICAFUNGIN INJ 100 MG in SODIUM CHLORIDE 0.9% INJ 100 ML IV SCH (10:10)
--- NOTE | 2017-05-02 12:11 | HHI.CCPN ---
Subjective Remarks/Hospital Course 04/24: 76-year-old female with a medical history significant for prior stroke, diabetes mellitus who was admitted with DKA and a hip fracture for which she underwent ORIF on 04/21. Patient developed altered mental status and was last noted to be okay around 5:30 AM. Subsequently there was a change in her mental status and she was noted to not be moving her right side for which stroke alert was called. Head CT showed large left MCA territory ischemic infarct with edema. Patient was transferred to the ICU by family medicine service in the critical care consult was requested. I evaluated the patient following arrival to the ICU. At that time she was laying in bed with her eyes open however not following commands and had a dense right hemiplegia. Patient was also evaluated by Dr. Malave from neurology. I further discussed current event with patient's daughter following her arrival to the ICU. Per the daughter patient has been living with her since her stroke in 2014 and does ambulate however has been having problems with memory and incontinence as well as gait difficulties. She does not feel patient would want intubation or tracheostomy or PEG tube. 04/25: Patient remains encephalopathic, awake though not following commands consistently. Dense right hemiplegia persists. Appears to be awake enough to protect airway currently. Patient's daughter rescinded DNR and made a full code last evening. 04/26: Remains encephalopathic, not following commands. On Dobbhoff for tube feeds at 30 cc per hour. Had urinary retention and drained 2 L of urine after placing Leavitt catheter today. CT head done this morning with large left MCA territory infarct with left to right midline shift and significant cerebral edema. Hyperglycemia noted. Patient given mannitol earlier for increasing cerebral edema. 04/27: Remains encephalopathic, not following commands. On Dobbhoff tube feeds at 30 cc per hour. When into A. fib with RVR last night which responded with Lopressor 5 mg IV 1 dose. 04/28: Remains encephalopathic, arousable, not following commands. Moves left upper extremity spontaneously. Tolerating Dobbhoff tube feeds. Remains on nasal cannula. 04/29: Encephalopathic, eyes be arousable, moves left upper extremity spontaneously and occasionally opens eyes. Dense right hemiplegia and aphasia persists. On nasal cannula. Dobbhoff tube feeds being advanced. Patient was transfused 1 unit PRBCs yesterday. Urine culture with yeast from yesterday for which fluconazole being started. Had brief run of A. fib with RVR which improved with Lopressor IV, currently in sinus rhythm. 04/30: Worsening hypoxemic respiratory failure, currently on partial nonrebreather. Remains lethargic. WBC count increased from 14.6 today 20.7. Chest x-ray shows bilateral worsening infiltrates and small pleural effusions. Sodium 154, weight up by 8 KG. Albumin 1 mg Bumex 1. Also one dose of albumin. Remains in sinus tachycardia. Tmax 101.3 05/01: Patient was intubated yesterday for lack of airway protection, and severe hypoxemic respiratory failure from aspiration pneumonia involving multiple lobes. Patient is on the vent lethargic, no spontaneous eye opening. Chest x- ray remains unchanged. Remains intermittently febrile Tmax 101.3. WBC count improving 05/02: Remains critically ill with no improvement in mental status. Spiking fever of 101.7. Blood culture and sputum culture with staph aureus sputum also growing GNR, WBC count 22,000 now indicating worsening sepsis. Daughter still requesting aggressive care. Palliative care is following Objective Vital Signs Date Time Temp Pulse Resp B/P (MAP) Pulse Ox O2 Delivery O2 Flow Rate FiO2 05/02/17 10:40 94 45 05/02/17 10:00 105 05/02/17 08:00 101.7 18 132/63 (86) 05/02/17 07:00 Mechanical Ventilator 04/30/17 10:03 15.00 Intake and Output 05/02/17 05/02/17 05/02/17 07:59 15:59 23:59 Intake Total 1577 ml Output Total 600 ml Balance 977 ml Result Diagram: 05/02/17 0418 05/02/17 0418 Imaging Last Impressions Head CT 04/24/17 0000 Signed Impressions: Service Date/Time: April 08:42 - CONCLUSION: 1. There is a large left MCA infarct. There is edema diffusely throughout the left MCA distribution. This would suggest completed infarct. The case was discussed with Dr. Ross. We did not feel the patient was a candidate for intracranial intervention due to the completed appearance of the infarct. 2. There is an old , encephalomalacic infarct involving the watershed distribution posteriorly on the left. Arnie Middleton MD Carotid Artery Ultrasound 04/24/17 0000 Signed Impressions: Service Date/Time: April 09:45 - CONCLUSION: 1. No hemodynamically significant carotid artery stenosis. Arnie Middleton MD Chest X-Ray 04/23/17 0000 Signed Impressions: Service Date/Time: Sunday, April 23, 2017 08:43 - CONCLUSION: Mild chronic interstitial changes. No acute abnormality. Deangelo Wren Jr., MD Hip X-Ray 04/21/17 0000 Signed Impressions: Service Date/Time: Friday, April 21, 2017 11:36 - CONCLUSION: Fluoroscopic images during placement of intramedullary siomara left femur. Benja Ramsey MD Hip and Pelvis X-Ray 04/20/17 0946 Signed Impressions: Service Date/Time: Thursday, April 20, 2017 10:36 - CONCLUSION: Mildly displaced intertrochanteric fracture. Benja Ramsey MD Objective Remarks Gen: Elderly female, lethargic, intubated not on sedation. Febrile, septic HEENT: Pallor present. Orotracheally intubated. Moderate biggs ET tube secretions Neck: No JVD Chest/pulmonary:Air entry equal bilaterally, bilateral course rhonchi and scattered crackles Cardiovascular: S1-S2 regular, sinus tachycardia no gallop or murmur GI/abdomen: Soft, nontender, bowel sounds present. Extremities: Warm bilaterally, no edema. Incision sites over left hip, thigh ORIF site clean dry and intact. No fluctuation or induration Neuro: Intubated on no sedation. No Spontaneous eye opening. Dense right hemiplegia noted. Localizes with left upper extremity, Withdraws LLE. Urinary Catheter: Yes Assessment to: Continue A/P Assessment and Plan Assessment: Large left MCA territory ischemic infarct Cerebral edema with midline shift Acute Encephalopathy Acute hypoxemic respiratory failure Severe sepsis HCAP/Suspected aspiration (staph aureus/GNR) Staph aureus bacteremia Fungal UTI Right hemiplegia Left Hip fracture status post ORIF (04/21) Diabetes mellitus Prior stroke Urinary retention Plan: Neuro: Follow neuro status closely. Continue Aspirin Patient was not a candidate for thrombolysis per discussion with neurology and radiology. Repeat head CT 04/30 showed slight improvement in the midline shift and mass effect Neurosurgery consulted 04/30- Dr. López, recommended conservative management Mannitol 12.5 g IV every 6 hourly for cerebral edema, hold for ser osm >310. Follow serial osmolality. Na154, target 145-150 Fluid changed to LR as Na is 157 Cardiovascular: IV hydration, watch for hypotension. Antihypertensives to keep systolic blood pressure less than to 180 mmHg LR at 125 ml per hour Pulmonary: Intubated on 04/30/17 for worsening hypoxemic respiratory failure, aspiration pneumonia Chest x-ray shows increasing bilateral infiltrates and increasing white count secondary to worsening sepsis, sputum culture with staph aureus and GNR CT of the chest 04/30/17 showed severe bibasilar consolidation, and evidence of aspiration Overall prognosis very poor for meaningful recovery, I did not recommend tracheostomy GI/liver: Dobbhoff for tube feedings and medications. Having BM Endocrine: Insulin sliding scale. Continue increase to Levemir 25 U q12hr /renal: Strict intake output, monitor and replete electrolytes, follow BUN/creatinine. Leavitt catheter placed for urinary retention on 04/26. Change today due to fungal UTI Heme: Follow CBC and coags. ID: Continue vancomycin, cefepime, Flagyl and micafungin Urine culture 04/26/17 sofie glabrata Blood culture 04/29/17 1 out of 4 bottles staph aureus Sputum culture 04/30/17 staph aureus and GNR Prophylaxis: SCDs. Lovenox 40 mg sq daily-cleared by Dr. Malave I had extensive discussion with daughter on 04/30/17, and I explained poor prognosis due to massive stroke. I explained her lack of airway protection and need for endotracheal intubation and mechanical ventilation which she agreed. However due to the massive nature of stroke. There is no reasonable improvement in the next few days I do not recommend tracheostomy and at that time I would recommend pursuing comfort measures only. Daughter wish to continue full CODE STATUS at this time. Being followed by palliative care team. Will re evaluate Friday per daughter's request Discussed with family medicine team, [employer]. Condition critical. Prognosis appears poor. CCT 35 MIN excluding procedures Meg Mak MD May 02, 2017 12:11
[2017-05-02] MEDS: LACTATED RINGER'S 1000 ML INJ 1,000 ML IV SCH ×2 (13:00→20:31)
--- NOTE | 2017-05-02 13:23 | HHI.HCPN ---
Reason for visit a. To assist with evaluation and management of symptoms including: Debility and pain. b. To assist medical decision maker(s) with: better understanding of current medical conditions; weighing benefits/burdens of medical treatment options; making medical treatment decisions. . Subjective/Interval History Mrs. Hein date a 76-year-old female with a past medical history of hypertension , diabetes mellitus and CVA who presented to the ED on 04/20/17 via EMS for evaluation of after a fall. Upon ED admission, random glucose 559. Patient underwent Left hip reduction and intramedullary nail fixation on 04/21/17. Clinical course complicated by large left MCA infarct with diffuse edema throughout the left MCA distribution. Neurology, Dr. Malave consulted. Patient not a candidate for intervention, not a candidate for IV TPA. As per neurology "Christina 4Id the prognosis with a stroke of the size is poor". Palliative care consulted for further clarifications of goals of care given poor prognosis. Patient remains minimally responsive to verbal or tactile stimuli, not following any commands or attempting to communicate. Endotracheally intubated and on mechanical ventilation. FiO2 45%, oxygen saturation in the mid to high 90s. Stable hemodynamically. Patient spiking fevers, max temp 101.7 this morning. Patient on cooling blankets. Chest x-ray today revealed an increased airspace opacity bilaterally, suggesting pulmonary edema. Laboratory workup today revealing worsening leukocytosis, WBC 22.0, Hgb 8.4, platelet count 307. Patient with worsening sepsis, Blood culture 04/29/17 positive for staph Aureus. Sputum culture 04/30/17 positive for staph Aureus and gram-negative rods. Very poor prognosis. Telephone conversation with patient's daughter Norma. Medical update provided. Shared concerns regarding patient's worsening clinical condition to include worsening sepsis, fevers, unchanged neurological status. Discussed overall poor prognosis. Readdress CODE STATUS, discussed risks, benefits and limitations of CPR given patient's overall poor prognosis and clinical condition. Daughter in agreement to allow the weekend to reevaluate patient's medical condition. Daughter verbalized unchanged goals of care, remain aggressive at this time to include full code. . Family/friend interactions See interval note. . Advance Directives Living Will: Never completed Health Care Surrogate: Never completed Durable Power of Chief Optometry Service: Never completed Advance Directive Specifics Health Care Surrogate(s): No advance directives completed. As per [place] statute, healthcare proxy decision making falls to patient's only daughter Norma Salvador. . Documented care wishes: No living will completed. . Significant change in goals: Goals of care remain unchanged. . Objective Vital Signs Date Time Temp Pulse Resp B/P (MAP) Pulse Ox O2 Delivery O2 Flow Rate FiO2 05/02/17 12:57 97 45 05/02/17 12:00 40 05/02/17 12:00 101.0 98 15 134/64 (87) 97 05/02/17 12:00 98 05/02/17 10:40 94 45 05/02/17 10:00 105 05/02/17 09:59 93 45 05/02/17 09:00 40 05/02/17 08:55 45 05/02/17 08:55 96 45 05/02/17 08:00 40 05/02/17 08:00 104 05/02/17 08:00 101.7 104 18 132/63 (86) 97 05/02/17 07:27 95 45 05/02/17 07:00 94 Mechanical Ventilator 45 05/02/17 06:00 103 05/02/17 04:00 100.2 107 19 132/60 (84) 95 05/02/17 04:00 105 05/02/17 04:00 40 05/02/17 02:00 103 05/02/17 02:00 34 40 05/02/17 00:00 100.4 97 18 140/67 (91) 97 05/02/17 00:00 40 05/02/17 00:00 100 05/01/17 22:00 96 05/01/17 22:00 40 05/01/17 20:14 94 40 05/01/17 20:00 101.5 96 15 149/70 (96) 95 05/01/17 20:00 95 Mechanical Ventilator 40 05/01/17 20:00 96 05/01/17 20:00 40 05/01/17 18:00 95 05/01/17 16:05 95 45 05/01/17 16:00 40 05/01/17 16:00 100.2 93 16 147/68 (94) 95 05/01/17 16:00 93 05/01/17 14:49 93 45 05/01/17 14:00 95 Intake & Output 05/02/17 05/02/17 07:00 19:00 Intake Total 1577 ml Output Total 600 ml Balance 977 ml IV Total 1002 ml Tube Feeding 575 ml Output Urine Total 600 ml # Bowel Movements 0 Physical Exam CONSTITUTIONAL/GENERAL: This is an elderly female resting in bed. Unresponsive to verbal or tactile stimuli. Orally intubated on mechanical ventilation. Not sedated. TUBES/LINES/DRAINS: PIV's. Dobbhoff to right nare. ETT, Leavitt catheter, left soft wrist restraint. SKIN: No jaundice, rashes, or lesions. Ecchymoses on upper extremities. Skin temperature appropriate. Not diaphoretic. Surgical incision to left hip, covered in dressing. Dressing dry and intact. HEAD: Atraumatic. Normocephalic. EYES: Pupils equal and round and reactive. No scleral icterus. No injection or drainage. ENT: Unable to evaluate hearing secondary to clinical condition. Nose without bleeding or purulent drainage. Moist oral mucosa. Dobbhoff to right nare. NECK: Trachea midline. Supple. CARDIOVASCULAR: Regular rate and rhythm. Peripheral pulses symmetric. RESPIRATORY/CHEST: Symmetric, orally intubated on mechanical ventilation. Coarse bilaterally. GASTROINTESTINAL: Abdomen soft, round, mildly distended. Bowel sounds present. GENITOURINARY: Without palpable bladder distension. MUSCULOSKELETAL: Extremities without clubbing, cyanosis. Edema to all 4 extremities. NEUROLOGICAL: Unresponsive to verbal or tactile stimuli. Not sedated. PSYCHIATRIC: Unable to evaluate secondary to clinical condition. . Diagnostic Tests Laboratory Laboratory Tests Test 04/30/17 04:36 04/30/17 08:17 05/01/17 04:29 05/01/17 13:32 White Blood Count 20.7 TH/MM3 (4.0-11.0) 14.5 TH/MM3 (4.0-11.0) Red Blood Count 3.24 MIL/MM3 (4.00-5.30) 2.53 MIL/MM3 (4.00-5.30) Hemoglobin 10.3 GM/DL (11.6-15.3) 7.9 GM/DL (11.6-15.3) Hematocrit 31.4 % (35.0-46.0) 24.5 % (35.0-46.0) Mean Corpuscular Volume 96.9 FL (80.0-100.0) 96.8 FL (80.0-100.0) Mean Corpuscular Hemoglobin 31.7 PG (27.0-34.0) 31.2 PG (27.0-34.0) Mean Corpuscular Hemoglobin Concent 32.7 % (32.0-36.0) 32.2 % (32.0-36.0) Red Cell Distribution Width 14.4 % (11.6-17.2) 14.5 % (11.6-17.2) Platelet Count 265 TH/MM3 (150-450) 281 TH/MM3 (150-450) Mean Platelet Volume 9.6 FL (7.0-11.0) 9.5 FL (7.0-11.0) Blood Urea Nitrogen 37 MG/DL (7-18) 41 MG/DL (7-18) Creatinine 0.53 MG/DL (0.50-1.00) 0.67 MG/DL (0.50-1.00) Random Glucose 233 MG/DL (74-106) 230 MG/DL (74-106) Calcium Level 8.3 MG/DL (8.5-10.1) 8.0 MG/DL (8.5-10.1) Phosphorus Level 1.2 MG/DL (2.5-4.9) 1.5 MG/DL (2.5-4.9) Sodium Level 154 MEQ/L (136-145) 154 MEQ/L (136-145) Potassium Level 3.9 MEQ/L (3.5-5.1) 4.0 MEQ/L (3.5-5.1) 3.7 MEQ/L (3.5-5.1) Chloride Level 118 MEQ/L (98-107) 119 MEQ/L (98-107) Carbon Dioxide Level 29.4 MEQ/L (21.0-32.0) 28.5 MEQ/L (21.0-32.0) Anion Gap 7 MEQ/L (5-15) 7 MEQ/L (5-15) Estimat Glomerular Filtration Rate 113 ML/MIN (>89) 86 ML/MIN (>89) Serum Osmolality 345 MOSM/KG (275-295) Blood Gas Puncture Site RT RADIAL Blood Gas Patient Temperature 98.6 Blood Gas HCO3 30 mmol/L (22-26) Blood Gas Base Excess 5.7 mmol/L (-2-2) Blood Gas Oxygen Saturation 92 % (90-100) Arterial Blood pH 7.46 (7.380-7.420) Arterial Blood Partial Pressure CO2 43 mmHg (38-42) Arterial Blood Partial Pressure O2 71 mmHg (61-120) Arterial Blood Oxygen Content 13.5 Vol % (12.0-20.0) Arterial Blood Carboxyhemoglobin 1.6 % (0-4) Arterial Blood Methemoglobin 0.8 % (0-2) Blood Gas Hemoglobin 10.3 G/DL (12.0-16.0) Oxygen Delivery Device Partial Rebreather Blood Gas Liter Flow 15 L/M Neutrophils (%) (Auto) 85.7 % (16.0-70.0) Lymphocytes (%) (Auto) 9.3 % (9.0-44.0) Monocytes (%) (Auto) 4.1 % (0.0-8.0) Eosinophils (%) (Auto) 0.4 % (0.0-4.0) Basophils (%) (Auto) 0.5 % (0.0-2.0) Neutrophils # (Auto) 12.5 TH/MM3 (1.8-7.7) Lymphocytes # (Auto) 1.3 TH/MM3 (1.0-4.8) Monocytes # (Auto) 0.6 TH/MM3 (0-0.9) Eosinophils # (Auto) 0.1 TH/MM3 (0-0.4) Basophils # (Auto) 0.1 TH/MM3 (0-0.2) CBC Comment AUTO DIFF Differential Total Cells Counted 100 Neutrophils % (Manual) 76 % (16-70) Band Neutrophils % 11 % (0-6) Lymphocytes % 7 % (9-44) Monocytes % 5 % (0-8) Neutrophils # (Manual) 12.8 TH/MM3 (1.8-7.7) Myelocytes 1 % (0-0) Differential Comment FINAL DIFF MANUAL Platelet Estimate NORMAL (NORMAL) Platelet Morphology Comment NORMAL (NORMAL) Red Cell Morphology Comment NORMAL (NORMAL) Total Protein 5.1 GM/DL (6.4-8.2) Albumin 1.3 GM/DL (3.4-5.0) Magnesium Level 2.2 MG/DL (1.5-2.5) Alkaline Phosphatase 351 U/L (45-117) Aspartate Amino Transf (AST/SGOT) 51 U/L (15-37) Alanine Aminotransferase (ALT/SGPT) 36 U/L (10-53) Total Bilirubin 0.4 MG/DL (0.2-1.0) Test 05/02/17 04:18 White Blood Count 22.0 TH/MM3 (4.0-11.0) Red Blood Count 2.71 MIL/MM3 (4.00-5.30) Hemoglobin 8.4 GM/DL (11.6-15.3) Hematocrit 26.4 % (35.0-46.0) Mean Corpuscular Volume 97.3 FL (80.0-100.0) Mean Corpuscular Hemoglobin 31.0 PG (27.0-34.0) Mean Corpuscular Hemoglobin Concent 31.9 % (32.0-36.0) Red Cell Distribution Width 15.0 % (11.6-17.2) Platelet Count 307 TH/MM3 (150-450) Mean Platelet Volume 10.0 FL (7.0-11.0) Neutrophils (%) (Auto) 82.3 % (16.0-70.0) Lymphocytes (%) (Auto) 13.1 % (9.0-44.0) Monocytes (%) (Auto) 3.7 % (0.0-8.0) Eosinophils (%) (Auto) 0.8 % (0.0-4.0) Basophils (%) (Auto) 0.1 % (0.0-2.0) Neutrophils # (Auto) 18.1 TH/MM3 (1.8-7.7) Lymphocytes # (Auto) 2.9 TH/MM3 (1.0-4.8) Monocytes # (Auto) 0.8 TH/MM3 (0-0.9) Eosinophils # (Auto) 0.2 TH/MM3 (0-0.4) Basophils # (Auto) 0.0 TH/MM3 (0-0.2) CBC Comment AUTO DIFF Differential Total Cells Counted 100 Neutrophils % (Manual) 71 % (16-70) Band Neutrophils % 17 % (0-6) Lymphocytes % 7 % (9-44) Monocytes % 3 % (0-8) Neutrophils # (Manual) 19.8 TH/MM3 (1.8-7.7) Metamyelocytes 1 % (0-1) Myelocytes 1 % (0-0) Nucleated Red Blood Cells 2 /100 WBC (0-0) Differential Comment FINAL DIFF MANUAL Platelet Estimate NORMAL (NORMAL) Platelet Morphology Comment NORMAL (NORMAL) Blood Urea Nitrogen 41 MG/DL (7-18) Creatinine 0.56 MG/DL (0.50-1.00) Random Glucose 184 MG/DL (74-106) Total Protein 5.3 GM/DL (6.4-8.2) Albumin 1.2 GM/DL (3.4-5.0) Calcium Level 8.0 MG/DL (8.5-10.1) Magnesium Level 2.2 MG/DL (1.5-2.5) Alkaline Phosphatase 473 U/L (45-117) Aspartate Amino Transf (AST/SGOT) 75 U/L (15-37) Alanine Aminotransferase (ALT/SGPT) 39 U/L (10-53) Total Bilirubin 0.5 MG/DL (0.2-1.0) Sodium Level 157 MEQ/L (136-145) Potassium Level 4.2 MEQ/L (3.5-5.1) Chloride Level 122 MEQ/L (98-107) Carbon Dioxide Level 28.1 MEQ/L (21.0-32.0) Anion Gap 7 MEQ/L (5-15) Estimat Glomerular Filtration Rate 106 ML/MIN (>89) Vancomycin Level Trough 17.9 MCG/ML (5.0-10.0) Result Diagram: 05/02/17 0418 05/02/17 0418 Microbiology Microbiology Date/Time Source Procedure Growth Status 04/29/17 17:05 Blood Peripheral Aerobic Blood Culture - Preliminary NO GROWTH IN 3 DAYS Resulted 04/29/17 17:05 Anaerobic Blood Culture - Final Staphylococcus Aureus Resulted 04/29/17 17:00 Blood Peripheral Aerobic Blood Culture - Preliminary NO GROWTH IN 3 DAYS Resulted 04/29/17 17:00 Blood Peripheral Anaerobic Blood Culture - Preliminary NO GROWTH IN 3 DAYS Resulted 04/30/17 18:00 Sputum Endotracheal Gram Stain - Final Resulted 04/30/17 18:00 Sputum Culture - Preliminary Staphylococcus Aureus Gram Negative Juan Resulted Imaging Last 24 hours Impressions Chest X-Ray 05/02/17 0600 Signed Impressions: Service Date/Time: Tuesday, May 02, 2017 04:02 - CONCLUSION: Increased airspace opacity bilaterally. The pattern may represent pulmonary edema. There is likely a left pleural effusion. Obdulio Sam MD Procedures * 04/30/17 -endotracheal intubation * 04/21/17 -Left hip reduction and intramedullary nail fixation . Assessment and Plan Disease Oriented Problem List: (1) Acute respiratory failure (2) Acute CVA (cerebrovascular accident) (3) Pneumonia (4) Atrial fibrillation with RVR (5) Hypertension (6) Hip fracture Symptom Scale: (1) Pain 0-10 Scale: Unable to quantify Comment: Secondary to recent surgical intervention (2) Debility 0-10 Scale: Unable to quantify Comment: Progressive. (3) Shortness of breath 0-10 Scale: Unable to quantify Comment: Increased oxygen requirement. Currently on nonrebreather mask at 15 L. Pertinent Non-Medical Issues Psychosocial: Patient is originally from [facility]. Residing in [facility] up until 2013 she moved to [place] to live with only daughter Trice. Patient is a , in 2006. Spiritual: No pentecostal affiliation. Legal: No advance directives completed. Ethical issues impacting care: Patient unable to participating in medical decision-making secondary to clinical condition. Patient's daughter acting as healthcare proxy decision maker. . Important Contacts Daughter Norma Salvador . . Prognosis Mrs. Hein needs a 76-year-old female with a past medical history of hypertension, diabetes mellitus and prior CVA. Presented with left hip fracture , underwent ORIF. Clinical course complicated by large left MCA infarct with edema. Overall prognosis is poor for a meaningful neurological recovery or long -term survival given acute stroke, chronic ongoing comorbidities and advanced age. Patient appears hospice appropriate should family elects comfort-directed care. . Code Status: Full Code Plan * CODE STATUS: FULL CODE. Code status readdressed 05/02/17. Risks, benefits and limitations of CPR, intubation and mechanical ventilation has been discussed at length with daughter Norma. * HEALTHCARE DECISION-MAKING: Patient unable to participate in medical decision- making secondary to clinical condition, minimally responsive post CVA. No advance directives completed, patient is . As per [place] statute, healthcare proxy decision-making falls to patient's only daughter Trice Salvador. * GOALS OF CARE: 05/02/17: Daughter wishing to allow the weekend to reevaluate patient's medical condition. Daughter verbalized unchanged goals of care, GOC remain aggressive at this time to include full code. * Telephone conversation with patient's daughter Norma. Medical update provided. Shared concerns regarding patient's worsening clinical condition to include worsening sepsis, fevers, unchanged neurological status. Discussed overall poor prognosis. Readdress CODE STATUS, discussed risks, benefits and limitations of CPR given patient's overall poor prognosis and clinical condition. Daughter wishing to continue full aggressive management. * SYMPTOMS: = Shortness of breath, multifactorial. Secondary to altered mental status/CVA, pneumonia, lethargy. Intubated and placed on mechanical ventilation. = Pain, secondary to recent surgical intervention. Morphine IV available as needed. = Debility, progressive. Likely to continue to worsen given recent acute stroke. * Case discussed with Dr. Mak and bedside RN. * Palliative care contact information has been provided to patient's daughter. * Ongoing emotional support and active listening provided. Spiritual services following. * Palliative care will continue to follow-up for further clarifications of goals of care as patient's clinical condition continues to evolve. . Time Spent Total Floor Time (mins): 36 (Total time to include review of medical records, physical exam, telephone conversation with patient's daughter, and case discussion with Dr. Mak and bedside RN.) >50% Counseling/Coord of Care: Yes Attestation To help prompt me to consider important information that might be impacting today's encounter and assessment, information from prior notes written by myself or my colleagues may have been "brought forward" into today's note. My signature on this note, however, is an attestation that I personally performed the exam, history, and/or decision-making noted today, and, unless otherwise indicated, the interactions with patient, family, and staff as well as the review of records all occurred today. I also attest that the listed assessment and stated plan reflect my best clinical judgment today based on the combination of historical information, prior notes, and today's exam/ interactions. When time spent is documented, it refers only to time spent today by the signer, or if indicated, combined time spent today by collaborating physician/nurse practitioner. Ashly Steven May 02, 2017 13:23
--- NOTE | 2017-05-02 13:27 | HHI.FPPN ---
Subjective Remarks Saw and examined patient this morning. Fever of 101.7 overnight. Patient is nonverbal and unable to answer questions. (Shandra Braun MD R1) Objective Vitals Vital Signs Date Time Temp Pulse Resp B/P (MAP) Pulse Ox O2 Delivery O2 Flow Rate FiO2 05/02/17 12:57 97 45 05/02/17 12:00 40 05/02/17 12:00 101.0 98 15 134/64 (87) 97 05/02/17 12:00 98 05/02/17 10:40 94 45 05/02/17 10:00 105 05/02/17 09:59 93 45 05/02/17 09:00 40 05/02/17 08:55 45 05/02/17 08:55 96 45 05/02/17 08:00 40 05/02/17 08:00 104 05/02/17 08:00 101.7 104 18 132/63 (86) 97 05/02/17 07:27 95 45 05/02/17 07:00 94 Mechanical Ventilator 45 05/02/17 06:00 103 05/02/17 04:00 100.2 107 19 132/60 (84) 95 05/02/17 04:00 105 05/02/17 04:00 40 05/02/17 02:00 103 05/02/17 02:00 34 40 05/02/17 00:00 100.4 97 18 140/67 (91) 97 05/02/17 00:00 40 05/02/17 00:00 100 05/01/17 22:00 96 05/01/17 22:00 40 05/01/17 20:14 94 40 05/01/17 20:00 101.5 96 15 149/70 (96) 95 05/01/17 20:00 95 Mechanical Ventilator 40 05/01/17 20:00 96 05/01/17 20:00 40 05/01/17 18:00 95 05/01/17 16:05 95 45 05/01/17 16:00 40 05/01/17 16:00 100.2 93 16 147/68 (94) 95 05/01/17 16:00 93 05/01/17 14:49 93 45 05/01/17 14:00 95 I/O 05/01/17 05/01/17 05/01/17 05/02/1705/02/17 9/1/17 07:00 15:00 23:00 07:00 15:00 23:00 Intake Total 858 ml 812 ml 1674.5 ml 1577 ml Output Total 750 ml 525 ml 600 ml Balance 108 ml 812 ml 1149.5 ml 977 ml IV Total 100 ml 812 ml 1000.5 ml 1002 ml Tube Feeding 658 ml 614 ml 575 ml Other 100 ml 60 ml Output Urine Total 750 ml 525 ml 600 ml # Bowel Movements 0 0 0 (Shandra Braun MD R1) Result Diagram: 05/02/1741705/02/17417 Objective Remarks CONSTITUTIONAL/GEN: Nonverbal, lying in bed. Intubated, sedated LUNGS: coarse breath sounds throughout, rhonchi bilaterally CARDIOVASCULAR: Tachycardic. Regular rate without murmur or gallop. GI/ABD: soft without masses, without organomegaly. NEURO: Intubated and sedated with spontaneous eye opening. MUSC: Bandages on lateral left hip and thigh are clean dry and intact. Procedures ORIF 04/21/17 Intubation 04/30/17 (Shandra Braun MD R1) A/P Assessment and Plan 76 y/o female with HTN, DM, CVA admitted for DKA and hip fracture. Now with large MCA stroke. Neuro and machine operator hay stacker consulted. Working with palliative care for goals of care. Discharge Planning Pending stroke progression and discussion for goals of care (Shandra Braun MD R1) Attending Attestation Patient seen and examined. Case reviewed and discussed Agree with plan of care as discussed with me and documented in the resident note. (Angélica Malik MD) Problem List: (1) Acute CVA (cerebrovascular accident) ICD Codes: I63.9 - Cerebral infarction, unspecified Status: Acute Plan: Patient found minimally responsive with neurological deficits around 0820 04/24. Stat CT of head was ordered, which showed large left MCA infarct. Diffuse edema throughout the left MCA distribution, suggest completed infarct. This was discussed and was not a candidate for intracranial intervention. CT (04/30): Reduction in midline shift to 11mm. Unchanged large left MCA infarction. Echocardiogram- The left ventricular systolic function is low normal with an estimated ejection fraction in the range of 50-55%. Mild concentric left ventricular hypertrophy. Normal left ventricular size. Dxpib-oh-sdlu mitral valve regurgitation. Carotid Artery US- No hemodynamically significant carotid stenosis -Consulted machine operator hay stacker, appreciate recs -Intubated/sedated; does not recommend tracheostomy -IV hydration, watch for hypotension. -Keep systolic to less than 220 -Lactated Ringer's at 125 mLs/hr -If there is no reasonable improvement by Friday will recommend pursuing comfort measures only, will reevaluate at that time -Neurosurgery consulted -Recommended conservative management -Keep Na in low to mid 150 range -Tube feeds: Glucerna 1.5 mLs for diet via Dobbhoff tube -Employment Office Clerk consult for management and recs -Consult palliative care-appreciate recs -Case discussed with daughter in-person about goals of care, limited treatment options, and poor prognosis. -Daughter continues to want aggressive care. Wishes to allow the weekend to reevaluate patient's medical condition -Neurology consulted-appreciate recs -Rectal ASA -Can start lovenox 40mg daily (2) Sepsis ICD Codes: A41.9 - Sepsis, unspecified organism Status: Acute Plan: Pt meets SIRS criteria 04/30: WBC elevated to 20.7. HR up to 122. RR 20. Febrile to 101.3 Source of infection, likely pulmonary vs urinary -See antibiotics as below -Culture results as below -Monitor vitals (3) HCAP (healthcare-associated pneumonia) ICD Codes: J18.9 - Pneumonia, unspecified organism Status: Acute Plan: Chest CT (04/30): Bilateral pulmonary infiltrates more pronounced within lower lobes with b/l pleural effusions. Material in lower lobe bronchi b/l, purulent or mucus plugging CXR 05/02: Increased airspace opacity bilaterally. The pattern may represent pulmonary edema. There is likely a left pleural effusion. Suspect possible HCAP with increasing leukocytosis and fevers. Possible aspiration -Flagyl 500mg q8H (04/29 - ) -Cefepime 2g IV daily (04/30 - ) -Vancomycin IV (04/30 - ) -Sputum culture showing staph aureus and Serratia Marcescens -Repeat blood cultures, with 1/4 positive; possible contaminant (4) Yeast UTI ICD Codes: B37.49 - Other urogenital candidiasis Status: Acute Plan: UA showed glucose, large number of leukocytes esterase, innumerable WBCs , rare bacteria, and few yeast Urine culture shows Lea Glabrata -Micafungin 100mg IV daily (5) Type 2 diabetes mellitus ICD Codes: E11.9 - Type 2 diabetes mellitus without complications Status: Chronic Plan: Admitted for DKA which has now resolved. Hemoglobin A1C is 12.9. Diabetes is uncontrolled. - Increase Levemir 20 units BID - Medium dose insulin sliding scale - Glucerna for NG tube feedings - Regular accuchecks q4H - Continue IV hydration (6) Atrial fibrillation ICD Codes: I48.91 - Unspecified atrial fibrillation Status: Acute Plan: Hx of intermittent Afib. Resolved with administration of Lopressor. -Continue to monitor -Lopressor PRN (7) Hip fracture ICD Codes: S72.009A - Fracture of unspecified part of neck of unspecified femur , initial encounter for closed fracture Status: Acute Plan: S/P left hip reduction ad intramedullary nail fixation on 04-21-17 -Consult orthopedics-appreciate recs * Cleared for discharge to rehabilitation * WBAT * Daily dressing changes * CM for rehabilitation placement * Follow-up in 2 weeks -Calcium/Vitamin D -Fluids as above -Tylenol, morphine PRN pain (8) Hypertension ICD Codes: I10 - Essential (primary) hypertension Status: Acute Plan: IV hydration. BPs labile -Continue fluids as above -Antihypertensives to keep SBP<180 (9) Fluids, Electrolytes, and Nutrition Status: Acute Plan: Fluids: IVF Electrolyte: on electrolyte protocol Nutrition: Glucerna tube feeds DVT ppx: SCDs/lovenox GI ppx: protonix (Shandra Braun MD R1) Problem Qualifiers (1) Sepsis: Qualified Codes: A41.9 - Sepsis, unspecified organism (2) Type 2 diabetes mellitus: Qualified Codes: E11.9 - Type 2 diabetes mellitus without complications (3) Atrial fibrillation: Qualified Codes: I48.0 - Paroxysmal atrial fibrillation (4) Hip fracture: (5) Hypertension: Qualified Codes: I10 - Essential (primary) hypertension Shandra Braun MD R1 May 02, 2017 13:27 Angélica Malik MD May 05, 2017 16:28
--- NOTE | 2017-05-02 16:33 | HHI.PR ---
Review/Management Diagnosis large left MCA stroke--prognosis guarded Diagnosis/Plan: Subjective Subjective Comments No acute events reported Active Medications Current Medications Medications (Trade) Dose Ordered Sig/Zeferino Route Start Time Stop Time Status Last Admin (Tylenol) 650 mg Q6H PRN PO 04/20/17 14:30 05/02/17 09:39 (Zofran Inj) 4 mg Q6H PRN IV PUSH 04/20/17 15:00 04/30/17 02:28 (Morphine Inj) 1 mg Q3H PRN IV 04/20/17 17:15 04/28/17 18:15 (Morphine Inj) 2 mg Q3H PRN IV 04/20/17 17:15 04/30/17 02:29 (Narcan Inj) 0.4 mg UNSCH PRN IV 04/20/17 17:15 (Nalini-Colace) 1 tab BID PO 04/20/17 21:00 05/02/17 09:24 (Milk Of Magnesia Liq) 30 ml Q12H PRN PO 04/20/17 20:30 (Senokot) 17.2 mg Q12H PRN PO 04/20/17 20:30 04/23/17 22:55 (Dulcolax Supp) 10 mg DAILY PRN RECTAL 04/20/17 20:30 (Lactulose Liq) 30 ml DAILY PRN PO 04/20/17 20:30 (Oscal-D 250-125) 250 mg TID PO 04/21/17 13:00 05/02/17 13:00 ([place] 7.5-325 Mg) 1 tab Q3H PRN PO 04/21/17 11:45 05/01/17 05:54 (Vitamin D3) 5,000 units DAILY PO 04/22/17 09:00 05/02/17 09:24 (NS Flush) 2 ml BID IV FLUSH 04/24/17 21:00 05/02/17 08:27 (NS Flush) 2 ml UNSCH PRN IV FLUSH 04/24/17 09:30 (Glucagon Inj) 1 mg UNSCH PRN IM/SQ 04/24/17 18:15 (Aspirin) 325 mg DAILY DOBHOFF 04/27/17 09:00 05/02/17 09:24 (D50w (Syr) Inj) 25 ml UNSCH PRN IV 04/26/17 20:30 04/28/17 15:50 (Lopressor Inj) 5 mg Q5M PRN IV PUSH 04/27/17 04:00 05/01/17 05:54 Potassium Chloride 100 ml @ 50 mls/hr Q2H PRN IV 04/27/17 08:45 Potassium Chloride 100 ml @ 50 mls/hr Q2H PRN IV 04/27/17 08:45 04/27/17 16:44 (K-Lyte Cl Eff) 50 meq UNSCH PRN PO 04/27/17 08:45 Potassium Chloride 100 ml @ 25 mls/hr UNSCH PRN IV 04/27/17 08:45 Potassium Chloride 100 ml @ 50 mls/hr Q2H PRN IV 04/27/17 08:45 04/29/17 12:15 Magnesium Sulfate 4 gm/Sodium Chloride 100 ml @ 50 mls/hr UNSCH PRN IV 04/27/17 08:45 (Mag-Ox) 800 mg UNSCH PRN PO 04/27/17 08:45 Magnesium Sulfate 2 gm/Sodium Chloride 100 ml @ 50 mls/hr UNSCH PRN IV 04/27/17 08:45 (K-Phos) 2,000 mg Q4H PRN PO 04/27/17 08:45 04/28/17 15:38 Sodium Phosphate 30 mmol/Sodium Chloride 250 ml @ 42 mls/hr UNSCH PRN IV 04/27/17 08:45 04/27/17 23:59 (K-Phos) 2,000 mg UNSCH PRN PO/TUBE 04/27/17 08:45 Potassium Phosphate 30 mmol/ Sodium Chloride 260 ml @ 42 mls/hr UNSCH PRN IV 04/27/17 08:45 05/01/17 17:22 (Protonix Inj) 40 mg Q24H IV PUSH 04/28/17 17:00 05/01/17 17:20 (NovoLOG SUPPLEMENTAL SCALE) 1 ACHS SLIDING SCALE SQ 04/28/17 16:00 05/02/17 11:04 (Flagyl) 500 mg Q8HR DOBHOFF 04/29/17 14:00 05/02/17 13:52 (Duoneb Neb) 1 ampule Q4HR NEB PRN NEB 04/30/17 04:45 04/30/17 05:11 (Duoneb Neb) 1 ampule Q6HR NEB NEB 04/30/17 10:00 05/02/17 15:27 Cefepime HCl 2000 mg/Sodium Chloride 100 ml @ 200 mls/hr Q8H IV 04/30/17 09:00 05/02/17 09:24 Micafungin Sodium 100 mg/Sodium Chloride 100 ml @ 100 mls/hr Q24H IV 04/30/17 09:00 05/02/17 10:10 Pharmacy Profile Note 1,000 ml @ 30 mls/hr UNSCH OTHER 04/30/17 15:45 Vancomycin HCl 1250 mg/Sodium Chloride 262.5 ml @ 250 mls/hr Q12H IV 04/30/17 18:00 05/02/17 06:02 (Lovenox Inj) 40 mg Q24H SQ 05/01/17 08:00 05/02/17 09:24 Lactated Ringer's 1,000 ml @ 125 mls/hr Q8H IV 05/02/17 13:00 05/02/17 13:00 (Levemir Inj) 25 units Q12H SQ 05/02/17 21:00 Allergies Allergies Coded Allergies No Known Allergies (Unverified04/20/17) Exam I&O / VS Vital Signs Date Time Temp Pulse Resp B/P (MAP) Pulse Ox O2 Delivery O2 Flow Rate FiO2 05/02/17 14:00 68 05/02/17 12:57 97 45 05/02/17 12:00 40 05/02/17 12:00 101.0 98 15 134/64 (87) 97 05/02/17 12:00 98 05/02/17 10:40 94 45 05/02/17 10:00 105 05/02/17 09:59 93 45 05/02/17 09:00 40 05/02/17 08:55 45 05/02/17 08:55 96 45 05/02/17 08:00 40 05/02/17 08:00 104 05/02/17 08:00 101.7 104 18 132/63 (86) 97 05/02/17 07:27 95 45 05/02/17 07:00 94 Mechanical Ventilator 45 05/02/17 06:00 103 05/02/17 04:00 100.2 107 19 132/60 (84) 95 05/02/17 04:00 105 05/02/17 04:00 40 05/02/17 02:00 103 05/02/17 02:00 34 40 05/02/17 00:00 100.4 97 18 140/67 (91) 97 05/02/17 00:00 40 05/02/17 00:00 100 05/01/17 22:00 96 05/01/17 22:00 40 05/01/17 20:14 94 40 05/01/17 20:00 101.5 96 15 149/70 (96) 95 05/01/17 20:00 95 Mechanical Ventilator 40 05/01/17 20:00 96 05/01/17 20:00 40 05/01/17 18:00 95 Respiratory: Lungs CTA, Non-labored respirations, BS equal Cardiology: Normal rate (tachycardic but regular), Regular Rhythm Musculoskeletal: ROM (within normal limits) Exam Comments Intubated,lethargic, but arousable and follow simple commands CN--left conjugate gaze deviation. PERRL, Right upper motor neuron CN 7 palsey. MOTOR--no spontaneous movement RUE or RLE. with draws LUE and LLE Objective Micro and Labs Laboratory Tests Test 05/02/17 04:18 White Blood Count 22.0 Red Blood Count 2.71 Hemoglobin 8.4 Hematocrit 26.4 Mean Corpuscular Volume 97.3 Mean Corpuscular Hemoglobin 31.0 Mean Corpuscular Hemoglobin Concent 31.9 Red Cell Distribution Width 15.0 Platelet Count 307 Mean Platelet Volume 10.0 Neutrophils (%) (Auto) 82.3 Lymphocytes (%) (Auto) 13.1 Monocytes (%) (Auto) 3.7 Eosinophils (%) (Auto) 0.8 Basophils (%) (Auto) 0.1 Neutrophils # (Auto) 18.1 Lymphocytes # (Auto) 2.9 Monocytes # (Auto) 0.8 Eosinophils # (Auto) 0.2 Basophils # (Auto) 0.0 CBC Comment AUTO DIFF Differential Total Cells Counted 100 Neutrophils % (Manual) 71 Band Neutrophils % 17 Lymphocytes % 7 Monocytes % 3 Neutrophils # (Manual) 19.8 Metamyelocytes 1 Myelocytes 1 Nucleated Red Blood Cells 2 Differential Comment FINAL DIFF MANUAL Platelet Estimate NORMAL Platelet Morphology Comment NORMAL Blood Urea Nitrogen 41 Creatinine 0.56 Random Glucose 184 Total Protein 5.3 Albumin 1.2 Calcium Level 8.0 Magnesium Level 2.2 Alkaline Phosphatase 473 Aspartate Amino Transf (AST/SGOT) 75 Alanine Aminotransferase (ALT/SGPT) 39 Total Bilirubin 0.5 Sodium Level 157 Potassium Level 4.2 Chloride Level 122 Carbon Dioxide Level 28.1 Anion Gap 7 Estimat Glomerular Filtration Rate 106 Vancomycin Level Trough 17.9 Date/Time Source Procedure Growth Status 04/29/17 17:05 Blood Peripheral Aerobic Blood Culture - Preliminary NO GROWTH IN 3 DAYS Resulted 04/29/17 17:05 Anaerobic Blood Culture - Final Staphylococcus Aureus Resulted 04/30/17 18:00 Sputum Endotracheal Gram Stain - Final Complete 04/30/17 18:00 Sputum Culture - Final Staphylococcus Aureus Serratia Marcescens Complete 04/26/17 12:20 Urine Catheterized Urine Urine Culture - Final Lea Glabrata Complete Marcio Malave PhD May 02, 2017 16:33
[2017-05-02] MEDS: PANTOPRAZOLE SODIUM 40 MG VIAL IV PUSH SCH (17:01)
--- NOTE | 2017-05-02 17:34 | HHI.PR ---
Subjective Subjective Comments Patient resting comfortably in bed. Nursing providing care. Does not appear to be in pain. Allergies: Coded Allergies: No Known Allergies (Unverified , 04/20/17) Review of Systems All other ROS: Unable to obtain Exam I&O / VS Vital Signs Date Time Temp Pulse Resp B/P (MAP) Pulse Ox O2 Delivery O2 Flow Rate FiO2 05/02/17 16:29 93 45 05/02/17 14:00 68 05/02/17 12:57 97 45 05/02/17 12:00 40 05/02/17 12:00 101.0 98 15 134/64 (87) 97 05/02/17 12:00 98 05/02/17 10:40 94 45 05/02/17 10:00 105 05/02/17 09:59 93 45 05/02/17 09:00 40 05/02/17 08:55 45 05/02/17 08:55 96 45 05/02/17 08:00 40 05/02/17 08:00 104 05/02/17 08:00 101.7 104 18 132/63 (86) 97 05/02/17 07:27 95 45 05/02/17 07:00 94 Mechanical Ventilator 45 05/02/17 06:00 103 05/02/17 04:00 100.2 107 19 132/60 (84) 95 05/02/17 04:00 105 05/02/17 04:00 40 05/02/17 02:00 103 05/02/17 02:00 34 40 05/02/17 00:00 100.4 97 18 140/67 (91) 97 05/02/17 00:00 40 05/02/17 00:00 100 05/01/17 22:00 96 05/01/17 22:00 40 05/01/17 20:14 94 40 05/01/17 20:00 101.5 96 15 149/70 (96) 95 05/01/17 20:00 95 Mechanical Ventilator 40 05/01/17 20:00 96 05/01/17 20:00 40 05/01/17 18:00 95 General: Intubated, No acute distress Cardiovascular: Normal rate (Tachycardic) Musculoskeletal: ROM (within normal limits) Psychiatric: Other (No restlessness or agitation noted) Neurologic: Speech (Not attempting to verbalize) Motor: Right Upper Extremity (Flaccid), Left Upper Extremity (Nonpurposeful spontaneous movement; not following commands), Right Lower Extremity (Flaccid), Left Lower Extremity (Withdraws) Clonus: Negative Objective Micro and Labs Laboratory Tests Test 05/02/17 04:18 White Blood Count 22.0 Red Blood Count 2.71 Hemoglobin 8.4 Hematocrit 26.4 Mean Corpuscular Volume 97.3 Mean Corpuscular Hemoglobin 31.0 Mean Corpuscular Hemoglobin Concent 31.9 Red Cell Distribution Width 15.0 Platelet Count 307 Mean Platelet Volume 10.0 Neutrophils (%) (Auto) 82.3 Lymphocytes (%) (Auto) 13.1 Monocytes (%) (Auto) 3.7 Eosinophils (%) (Auto) 0.8 Basophils (%) (Auto) 0.1 Neutrophils # (Auto) 18.1 Lymphocytes # (Auto) 2.9 Monocytes # (Auto) 0.8 Eosinophils # (Auto) 0.2 Basophils # (Auto) 0.0 CBC Comment AUTO DIFF Differential Total Cells Counted 100 Neutrophils % (Manual) 71 Band Neutrophils % 17 Lymphocytes % 7 Monocytes % 3 Neutrophils # (Manual) 19.8 Metamyelocytes 1 Myelocytes 1 Nucleated Red Blood Cells 2 Differential Comment FINAL DIFF MANUAL Platelet Estimate NORMAL Platelet Morphology Comment NORMAL Blood Urea Nitrogen 41 Creatinine 0.56 Random Glucose 184 Total Protein 5.3 Albumin 1.2 Calcium Level 8.0 Magnesium Level 2.2 Alkaline Phosphatase 473 Aspartate Amino Transf (AST/SGOT) 75 Alanine Aminotransferase (ALT/SGPT) 39 Total Bilirubin 0.5 Sodium Level 157 Potassium Level 4.2 Chloride Level 122 Carbon Dioxide Level 28.1 Anion Gap 7 Estimat Glomerular Filtration Rate 106 Vancomycin Level Trough 17.9 Date/Time Source Procedure Growth Status 04/29/17 17:05 Blood Peripheral Aerobic Blood Culture - Preliminary NO GROWTH IN 3 DAYS Resulted 04/29/17 17:05 Anaerobic Blood Culture - Final Staphylococcus Aureus Resulted 04/30/17 18:00 Sputum Endotracheal Gram Stain - Final Complete 04/30/17 18:00 Sputum Culture - Final Staphylococcus Aureus Serratia Marcescens Complete 04/26/17 12:20 Urine Catheterized Urine Urine Culture - Final Lea Glabrata Complete Assessment and Plan Diagnosis: (1) Acute ischemic left middle cerebral artery (MCA) stroke ICD Codes: I63.512 - Cerebral infarction due to unspecified occlusion or stenosis of left middle cerebral artery Status: Acute (2) Right hemiplegia ICD Codes: G81.91 - Hemiplegia, unspecified affecting right dominant side Status: Acute (3) Aphasia ICD Codes: R47.01 - Aphasia Status: Acute (4) Hip fracture ICD Codes: S72.009A - Fracture of unspecified part of neck of unspecified femur , initial encounter for closed fracture Status: Acute Qualifiers: Encounter type: subsequent encounter Fracture type: closed Laterality: left Assessment 1. 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 Left intertrochanteric hip fracture status post IM nail 04/21/17 3. Diabetes mellitus with DKA on admission 4. Hypertension 5. Previous stroke Plan 1. Physical therapy reconsulted for ROM. 2. Occupational therapy is on hold 3. Speech therapy following for swallow if extubated 4. SCDs in place for DVT prophylaxis 5. Reposition q 2 hours and monitor skin integrity 6. Palliative care following and case management is working with family. 7. Will continue to follow while hospitalized and at discharge as appropriate Li Perrin MD May 02, 2017 17:34
--- NOTE | 2017-05-02 19:58 | HHI.NSPN ---
History Chief Complaint: intubated Interval History 76-year-old female status post left MCA distribution CVA with significant mass effect. Exam Results Vital Signs Date Time Temp Pulse Resp B/P (MAP) Pulse Ox O2 Delivery O2 Flow Rate FiO2 05/02/17 18:00 92 05/02/17 16:29 93 45 05/02/17 16:00 98.9 13 138/67 (90) 05/02/17 07:00 Mechanical Ventilator 04/30/17 10:03 15.00 Intake and Output 05/02/17 05/02/17 05/03/17 08:00 16:00 00:00 Intake Total 1577 ml 1122 ml Output Total 600 ml 600 ml Balance 977 ml 522 ml Physical Examination Intubated Moderate eye opening to voice Tracks to the left to voice with mildly disconjugate gaze Relatively strong left grasp to command. Procedure left leg mild to command. Persistent right afsaneh-plegia Lab, Micro, Other Results Laboratory Tests Test 05/02/17 04:18 White Blood Count 22.0 TH/MM3 Red Blood Count 2.71 MIL/MM3 Hemoglobin 8.4 GM/DL Hematocrit 26.4 % Mean Corpuscular Volume 97.3 FL Mean Corpuscular Hemoglobin 31.0 PG Mean Corpuscular Hemoglobin Concent 31.9 % Red Cell Distribution Width 15.0 % Platelet Count 307 TH/MM3 Mean Platelet Volume 10.0 FL Neutrophils (%) (Auto) 82.3 % Lymphocytes (%) (Auto) 13.1 % Monocytes (%) (Auto) 3.7 % Eosinophils (%) (Auto) 0.8 % Basophils (%) (Auto) 0.1 % Neutrophils # (Auto) 18.1 TH/MM3 Lymphocytes # (Auto) 2.9 TH/MM3 Monocytes # (Auto) 0.8 TH/MM3 Eosinophils # (Auto) 0.2 TH/MM3 Basophils # (Auto) 0.0 TH/MM3 CBC Comment AUTO DIFF Differential Total Cells Counted 100 Neutrophils % (Manual) 71 % Band Neutrophils % 17 % Lymphocytes % 7 % Monocytes % 3 % Neutrophils # (Manual) 19.8 TH/MM3 Metamyelocytes 1 % Myelocytes 1 % Nucleated Red Blood Cells 2 /100 WBC Differential Comment FINAL DIFF MANUAL Platelet Estimate NORMAL Platelet Morphology Comment NORMAL Blood Urea Nitrogen 41 MG/DL Creatinine 0.56 MG/DL Random Glucose 184 MG/DL Total Protein 5.3 GM/DL Albumin 1.2 GM/DL Calcium Level 8.0 MG/DL Magnesium Level 2.2 MG/DL Alkaline Phosphatase 473 U/L Aspartate Amino Transf (AST/SGOT) 75 U/L Alanine Aminotransferase (ALT/SGPT) 39 U/L Total Bilirubin 0.5 MG/DL Sodium Level 157 MEQ/L Potassium Level 4.2 MEQ/L Chloride Level 122 MEQ/L Carbon Dioxide Level 28.1 MEQ/L Anion Gap 7 MEQ/L Estimat Glomerular Filtration Rate 106 ML/MIN Vancomycin Level Trough 17.9 MCG/ML Medical Decision Making Impression and Plan Impression: 1. Stable neurologic exam following left MCA CVA. Most recent CT scan head on 04/30/2017 with diminished mass effect from 14 down to 11 mm shift. Plan: Continue ventilatory support Continue keep sodium 148-154 range. Follow-up CT scan head next one-2 days to confirm continued decrease in mass effect. Parker López MD May 02, 2017 19:58
[2017-05-03] VITALS (18 sets, daily range): BP systolic 133–167; BP diastolic 62–83; PULSE 23–98; RESP 16–25; TEMP 98–101.1; O2SAT 92–100
[2017-05-03] MEDS: CEFEPIME INJ 2,000 MG in SODIUM CHLORIDE 0.9% INJ 100 ML IV SCH ×3 (00:18→16:34)
[2017-05-03] MEDS: ACETAMINOPHEN 325 MG TAB PO PRN (00:27)
[2017-05-03] MEDS: RESP: ALBUTEROL 2.5 MG/IPRATROPIUM 0.5 MG NEB (SCH) NEB ×4 (04:32→20:32)
[2017-05-03] MEDS: metroNIDAZOLE 500 MG TAB DOBHOFF SCH ×3 (05:55→20:17)
[2017-05-03] MEDS: LACTATED RINGER'S 1000 ML INJ 1,000 ML IV SCH ×3 (05:55→18:25)
[2017-05-03 05:56] LABS: AUTOMATED NEUTROPHIL # 20.5 TH/MM3 (1.8-7.7); BASOPHIL # 0.1 TH/MM3 (0-0.2); BASOPHIL % 0.4 % (0.0-2.0); EOSINOPHIL # 0.1 TH/MM3 (0-0.4); EOSINOPHIL % 0.6 % (0.0-4.0); HEMATOCRIT 25.9 % (35.0-46.0); HEMOGLOBIN 8.1 GM/DL (11.6-15.3); LYMPH % 5.8 % (9.0-44.0); LYMPHOCYTE # 1.3 TH/MM3 (1.0-4.8); MEAN CELL VOLUME 98.1 FL (80.0-100.0); MEAN CORPUSCULAR HEMOGLOBIN 30.6 PG (27.0-34.0); MEAN CORPUSCULAR HGB CONC 31.2 % (32.0-36.0); MEAN PLATELET VOLUME 9.7 FL (7.0-11.0); MONO % 3.5 % (0.0-8.0); MONOCYTE # 0.8 TH/MM3 (0-0.9); NEUT % 89.7 % (16.0-70.0); PLATELET COUNT 399 TH/MM3 (150-450); RED BLOOD COUNT 2.64 MIL/MM3 (4.00-5.30); WHITE BLOOD COUNT 22.8 TH/MM3 (4.0-11.0)
[2017-05-03] MEDS: INSULIN ASPART SUPPLEMENTAL SCALE SQ SCH ×4 (07:00→21:00)
[2017-05-03 07:10] LABS: ALBUMIN 1.1 GM/DL (3.4-5.0); ALKALINE PHOSPHATASE 563 U/L (45-117); ALT (GPT) 36 U/L (10-53); AST (GOT) 70 U/L (15-37); BICARBONATE 28.9 MEQ/L (21.0-32.0); BLOOD UREA NITROGEN 41 MG/DL (7-18); CALCIUM 8.3 MG/DL (8.5-10.1); CHLORIDE 120 MEQ/L (98-107); CREATININE 0.62 MG/DL (0.50-1.00); GLOMERULAR FILTRATION RATE 94 ML/MIN (>89); GLUCOSE,RANDOM 155 MG/DL (74-106); MAGNESIUM 2.3 MG/DL (1.5-2.5); TOTAL BILIRUBIN ADULT 0.6 MG/DL (0.2-1.0); TOTAL PROTEIN 5.7 GM/DL (6.4-8.2); VANCOMYCIN TROUGH 22.8 MCG/ML (5.0-10.0)
[2017-05-03] MEDS: VANCOMYCIN INJ 1,250 MG in SODIUM CHLOR 0.9% 250 ML INJ 250 ML IV SCH (07:24)
[2017-05-03 07:30] LABS: SODIUM (NA) 157 MEQ/L (136-145)
--- NOTE | 2017-05-03 08:00 | HHI.CCPN ---
Subjective Remarks/Hospital Course 04/24: 76-year-old female with a medical history significant for prior stroke, diabetes mellitus who was admitted with DKA and a hip fracture for which she underwent ORIF on 04/21. Patient developed altered mental status and was last noted to be okay around 5:30 AM. Subsequently there was a change in her mental status and she was noted to not be moving her right side for which stroke alert was called. Head CT showed large left MCA territory ischemic infarct with edema. Patient was transferred to the ICU by family medicine service in the critical care consult was requested. I evaluated the patient following arrival to the ICU. At that time she was laying in bed with her eyes open however not following commands and had a dense right hemiplegia. Patient was also evaluated by Dr. Malave from neurology. I further discussed current event with patient's daughter following her arrival to the ICU. Per the daughter patient has been living with her since her stroke in 2014 and does ambulate however has been having problems with memory and incontinence as well as gait difficulties. She does not feel patient would want intubation or tracheostomy or PEG tube. 04/25: Patient remains encephalopathic, awake though not following commands consistently. Dense right hemiplegia persists. Appears to be awake enough to protect airway currently. Patient's daughter rescinded DNR and made a full code last evening. 04/26: Remains encephalopathic, not following commands. On Dobbhoff for tube feeds at 30 cc per hour. Had urinary retention and drained 2 L of urine after placing Leavitt catheter today. CT head done this morning with large left MCA territory infarct with left to right midline shift and significant cerebral edema. Hyperglycemia noted. Patient given mannitol earlier for increasing cerebral edema. 04/27: Remains encephalopathic, not following commands. On Dobbhoff tube feeds at 30 cc per hour. When into A. fib with RVR last night which responded with Lopressor 5 mg IV 1 dose. 04/28: Remains encephalopathic, arousable, not following commands. Moves left upper extremity spontaneously. Tolerating Dobbhoff tube feeds. Remains on nasal cannula. 04/29: Encephalopathic, eyes be arousable, moves left upper extremity spontaneously and occasionally opens eyes. Dense right hemiplegia and aphasia persists. On nasal cannula. Dobbhoff tube feeds being advanced. Patient was transfused 1 unit PRBCs yesterday. Urine culture with yeast from yesterday for which fluconazole being started. Had brief run of A. fib with RVR which improved with Lopressor IV, currently in sinus rhythm. 04/30: Worsening hypoxemic respiratory failure, currently on partial nonrebreather. Remains lethargic. WBC count increased from 14.6 today 20.7. Chest x-ray shows bilateral worsening infiltrates and small pleural effusions. Sodium 154, weight up by 8 KG. Albumin 1 mg Bumex 1. Also one dose of albumin. Remains in sinus tachycardia. Tmax 101.3 05/01: Patient was intubated yesterday for lack of airway protection, and severe hypoxemic respiratory failure from aspiration pneumonia involving multiple lobes. Patient is on the vent lethargic, no spontaneous eye opening. Chest x- ray remains unchanged. Remains intermittently febrile Tmax 101.3. WBC count improving 05/02: Remains critically ill with no improvement in mental status. Spiking fever of 101.7. Blood culture and sputum culture with staph aureus sputum also growing GNR, WBC count 22,000 now indicating worsening sepsis. Daughter still requesting aggressive care. Palliative care is following 05/03: S/P large area dominant hemisphere CVA. No neurological improvement. Now with pneumonia (infiltrate, fever, leukocytosis) and appropriate abx coverage. She will have a hard time surviving the hip fx, CVA, and pneumonia. Palliative Care needs to be a mainstay of our plan. Objective Vital Signs Date Time Temp Pulse Resp B/P (MAP) Pulse Ox O2 Delivery O2 Flow Rate FiO2 05/03/17 07:46 96 45 05/03/17 06:00 94 05/03/17 04:00 100.8 16 137/65 (89) 05/02/17 19:00 Mechanical Ventilator 04/30/17 10:03 15.00 Intake and Output 05/03/17 05/03/17 05/03/17 07:59 15:59 23:59 Intake Total 2178 ml Output Total 425 ml Balance 1753 ml Result Diagram: 05/03/17 0503 05/03/17 0503 Other Results Microbiology Date/Time Source Procedure Growth Status 04/30/17 18:00 Sputum Endotracheal Gram Stain - Final Complete 04/30/17 18:00 Sputum Culture - Final Staphylococcus Aureus Serratia Marcescens Complete Imaging Last Impressions Head CT 04/24/17 0000 Signed Impressions: Service Date/Time: April 08:42 - CONCLUSION: 1. There is a large left MCA infarct. There is edema diffusely throughout the left MCA distribution. This would suggest completed infarct. The case was discussed with Dr. Ross. We did not feel the patient was a candidate for intracranial intervention due to the completed appearance of the infarct. 2. There is an old , encephalomalacic infarct involving the watershed distribution posteriorly on the left. Arnie Middleton MD Carotid Artery Ultrasound 04/24/17 0000 Signed Impressions: Service Date/Time: April 09:45 - CONCLUSION: 1. No hemodynamically significant carotid artery stenosis. Arnie Middleton MD Chest X-Ray 04/23/17 0000 Signed Impressions: Service Date/Time: Sunday, April 23, 2017 08:43 - CONCLUSION: Mild chronic interstitial changes. No acute abnormality. Deangelo Wren Jr., MD Hip X-Ray 04/21/17 0000 Signed Impressions: Service Date/Time: Friday, April 21, 2017 11:36 - CONCLUSION: Fluoroscopic images during placement of intramedullary siomara left femur. Benja Ramsey MD Hip and Pelvis X-Ray 04/20/17 0946 Signed Impressions: Service Date/Time: Thursday, April 20, 2017 10:36 - CONCLUSION: Mildly displaced intertrochanteric fracture. Benja Ramsey MD Objective Remarks Gen: Elderly female, lethargic, intubated not on sedation. Febrile, septic HEENT: Pallor present. Orotracheally intubated. Moderate biggs ET tube secretions Neck: No JVD Chest/pulmonary:Air entry equal bilaterally, diffuse bilateral course rhonchi. Cardiovascular: S1-S2 regular, sinus tachycardia no gallop or murmur GI/abdomen: Soft, nontender, bowel sounds present. No guarding. Extremities: Warm bilaterally, no edema. Incision sites over left hip, thigh ORIF site clean dry and intact. No fluctuation or induration Neuro: Intubated on no sedation. No Spontaneous eye opening. Dense right hemiplegia noted. Localizes with left upper extremity, Withdraws LLE. No change. A/P Assessment and Plan Assessment: Large left MCA territory ischemic infarct Cerebral edema with midline shift Acute Encephalopathy Acute hypoxemic respiratory failure Severe sepsis HCAP/Suspected aspiration (staph aureus/GNR) Staph aureus bacteremia Fungal UTI Right hemiplegia Left Hip fracture status post ORIF (04/21) Diabetes mellitus Prior stroke Urinary retention Plan: Neuro: Follow neuro status closely. Continue Aspirin Patient was not a candidate for thrombolysis per discussion with neurology and radiology. Repeat head CT 04/30 showed slight improvement in the midline shift and mass effect Neurosurgery consulted 04/30- Dr. López, recommended conservative management Mannitol 12.5 g IV every 6 hourly for cerebral edema, hold for ser osm >310. Follow serial osmolality. Na154, target 145-150 Maintenance with LR as Na remains 157 Cardiovascular: IV hydration, watch for hypotension. Antihypertensives to keep systolic blood pressure less than to 180 mmHg LR at 125 ml per hour Pulmonary: Intubated on 04/30/17 for worsening hypoxemic respiratory failure, aspiration pneumonia Chest x-ray shows increasing bilateral infiltrates and increasing white count secondary to worsening sepsis, sputum culture with staph aureus and Serratia CT of the chest 04/30/17 showed severe bibasilar consolidation, and evidence of aspiration Overall prognosis very poor for meaningful recovery, I did not recommend tracheostomy GI/liver: Dobbhoff for tube feedings and medications. Having BM Endocrine: Insulin sliding scale. Continue increase to Levemir 25 U q12hr /renal: Strict intake output, monitor and replete electrolytes, follow BUN/creatinine. Leavitt catheter placed for urinary retention on 04/26. Change today due to fungal UTI Heme: Follow CBC and coags. ID: Continue vancomycin, cefepime, Flagyl and micafungin Urine culture 04/26/17 sofie glabrata Blood culture 04/29/17 1 out of 4 bottles staph aureus Sputum culture 04/30/17 staph aureus and Serratia. Prophylaxis: SCDs. Lovenox 40 mg sq daily-cleared by Dr. Ananda Mak had extensive discussion with daughter on 04/30/17, and I explained poor prognosis due to massive stroke. I explained her lack of airway protection and need for endotracheal intubation and mechanical ventilation which she agreed. However due to the massive nature of stroke. There is no reasonable improvement in the next few days I do not recommend tracheostomy and at that time I would recommend pursuing comfort measures only. Daughter wish to continue full CODE STATUS at this time. Being followed by palliative care team. Will re evaluate Friday per daughter's request Overall impression: Condition critical. Prognosis poor. This collection of medical problems is not survivable at her age. Critical Care 43 mins Charles Pedraza MD May 03, 2017 08:00
[2017-05-03] MEDS: ASPIRIN 325 MG TAB DOBHOFF SCH (08:25)
[2017-05-03] MEDS: CHOLECALCIFEROL (VIT D3) 5000 UNIT CAP PO SCH (08:25)
[2017-05-03] MEDS: CALCIUM/VITAMIN D 250 MG/125 U TAB PO SCH ×3 (08:25→18:25)
[2017-05-03] MEDS: ENOXAPARIN SODIUM 40 MG/0.4 ML SYRINGE SQ SCH (08:25)
[2017-05-03] MEDS: DOCUSATE SODIUM 50 MG/SENNA 8.6 MG TAB PO SCH ×2 (08:25→20:16)
[2017-05-03] MEDS: SODIUM CHLORIDE 0.9% FLUSH 5 ML FLUSH IV FLUSH SCH ×2 (08:26→20:18)
[2017-05-03] MEDS: MICAFUNGIN INJ 100 MG in SODIUM CHLORIDE 0.9% INJ 100 ML IV SCH (08:27)
[2017-05-03] MEDS: INSULIN DETEMIR 100 UNITS/ML VIAL SQ SCH ×2 (08:29→20:20)
[2017-05-03 08:54] LABS: BANDS 18 % (0-6); CORRECTED NUCLEATED RBC 1 /100 WBC (0-0); LYMPHOCYTES 6 % (9-44); MONOCYTES 1 % (0-8); MYELOCYTES 4 % (0-0); NEUTROPHIL # MANUAL DIFF 21.2 TH/MM3 (1.8-7.7); NUCLEATED RED BLOOD CELL 1 (0-0); POLYS (SEG NEUTROPHILS) 70 % (16-70); PROMYELOCYTES 1 % (0-0)
[2017-05-03] MEDS: METOPROLOL TARTRATE 5 MG/5 ML VIAL IV PUSH PRN ×2 (09:28→18:26)
--- NOTE | 2017-05-03 13:50 | HHI.FPPN ---
Subjective Remarks Saw and examined patient this morning. Patient spiking fevers to 101.1 overnight with heart rate in the 90s. Patient was placed on a cooling blanket. No other reports from the nurse. (Shandra Braun MD R1) Objective Vitals Vital Signs Date Time Temp Pulse Resp B/P (MAP) Pulse Ox O2 Delivery O2 Flow Rate FiO2 05/03/17 12:07 95 55 05/03/17 12:00 76 05/03/17 12:00 50 05/03/17 12:00 98.0 76 21 146/72 (96) 95 05/03/17 10:00 88 05/03/17 08:00 50 05/03/17 08:00 98.5 96 25 147/70 (95) 96 05/03/17 08:00 96 05/03/17 07:53 45 05/03/17 07:46 96 45 05/03/17 07:00 93 Mechanical Ventilator 45 05/03/17 06:00 94 05/03/17 04:33 94 45 05/03/17 04:00 92 05/03/17 04:00 45 05/03/17 04:00 100.8 92 16 137/65 (89) 95 05/03/17 02:00 92 05/03/17 00:33 92 45 05/03/17 00:00 98 05/03/17 00:00 101.1 98 18 143/65 (91) 93 05/03/17 00:00 45 05/02/17 22:00 101 05/02/17 20:40 95 45 05/02/17 20:00 100.4 94 20 148/66 (93) 95 05/02/17 20:00 45 05/02/17 20:00 94 05/02/17 19:00 95 Mechanical Ventilator 45 05/02/17 18:00 92 05/02/17 16:29 93 45 05/02/17 16:00 98.9 95 13 138/67 (90) 93 05/02/17 16:00 95 05/02/17 16:00 40 05/02/17 14:00 68 I/O 05/02/17 05/02/17 05/02/17 05/03/17 05/03/17 05/03/17 07:00 15:00 23:00 07:00 15:00 23:00 Intake Total 1577 ml 1122 ml 2178 ml 712 ml Output Total 600 ml 600 ml 425 ml Balance 977 ml 522 ml 1753 ml 712 ml IV Total 1002 ml 383 ml 1495 ml 712 ml Tube Feeding 575 ml 619 ml 563 ml Tube Irrigant 120 ml Other 120 ml Output Urine Total 600 ml 600 ml 425 ml # Bowel Movements 0 0 0 (Shandra Braun MD R1) Result Diagram: 05/03/17 0503 05/03/17 0503 Imaging Last Impressions Chest X-Ray 05/02/17 0600 Signed Impressions: Service Date/Time: Tuesday, May 02, 2017 04:02 - CONCLUSION: Increased airspace opacity bilaterally. The pattern may represent pulmonary edema. There is likely a left pleural effusion. Obdulio Sam MD Head CT 04/30/17 0000 Signed Impressions: Service Date/Time: Sunday, April 30, 2017 09:10 - CONCLUSION: Reduction in the midline shift from 14 to11 mm. Unchanged large left MCA territory infarction. Deangelo Wren Jr., MD Chest CT 04/30/17 0000 Signed Impressions: Service Date/Time: Sunday, April 30, 2017 09:20 - CONCLUSION: 1. Bilateral pulmonary infiltrates more pronounced within the lower lobes with tiny bilateral pleural effusions. Material seen filling the lower lobe bronchi bilaterally either related to purulent material or perhaps mucus plugging. Deangelo Wren Jr., MD Abdomen X-Ray 04/25/17 0000 Signed Impressions: Service Date/Time: Tuesday, April 25, 2017 14:56 - CONCLUSION: 1. Feeding tube distal tip in the gastric body. 2. Partially visualized calcified uterine fibroids. Obdulio Sam MD Carotid Artery Ultrasound 04/24/17 0000 Signed Impressions: Service Date/Time: April 09:45 - CONCLUSION: 1. No hemodynamically significant carotid artery stenosis. Arnie Middleton MD Hip X-Ray 04/21/17 0000 Signed Impressions: Service Date/Time: Friday, April 21, 2017 11:36 - CONCLUSION: Fluoroscopic images during placement of intramedullary siomara left femur. Bejna Ramsey MD Hip and Pelvis X-Ray 04/20/17 0946 Signed Impressions: Service Date/Time: Thursday, April 20, 2017 10:36 - CONCLUSION: Mildly displaced intertrochanteric fracture. Benja Ramsey MD Objective Remarks CONSTITUTIONAL/GEN: Nonverbal, lying in bed. Intubated, sedated LUNGS: coarse breath sounds throughout, rhonchi bilaterally, but improved CARDIOVASCULAR: Tachycardic. Regular rate without murmur or gallop. GI/ABD: soft without masses, without organomegaly. NEURO: Intubated and sedated with spontaneous eye opening. MUSC: Bandages on lateral left hip and thigh are clean dry and intact. SCDs on bilateral lower extremities Procedures ORIF 04/21/17 Intubation 04/30/17 Medications and IVs Current Medications Medications (Trade) Dose Ordered Sig/Zeferino Route Start Time Stop Time Status Last Admin (Tylenol) 650 mg Q6H PRN PO 04/20/17 14:30 05/03/17 00:27 (Zofran Inj) 4 mg Q6H PRN IV PUSH 04/20/17 15:00 04/30/17 02:28 (Morphine Inj) 1 mg Q3H PRN IV 04/20/17 17:15 04/28/17 18:15 (Morphine Inj) 2 mg Q3H PRN IV 04/20/17 17:15 04/30/17 02:29 (Narcan Inj) 0.4 mg UNSCH PRN IV 04/20/17 17:15 (Nalini-Colace) 1 tab BID PO 04/20/17 21:00 05/03/17 08:25 (Milk Of Magnesia Liq) 30 ml Q12H PRN PO 04/20/17 20:30 (Senokot) 17.2 mg Q12H PRN PO 04/20/17 20:30 04/23/17 22:55 (Dulcolax Supp) 10 mg DAILY PRN RECTAL 04/20/17 20:30 (Lactulose Liq) 30 ml DAILY PRN PO 04/20/17 20:30 (Oscal-D 250-125) 250 mg TID PO 04/21/17 13:00 05/03/17 08:25 (Welch 7.5-325 Mg) 1 tab Q3H PRN PO 04/21/17 11:45 05/01/17 05:54 (Vitamin D3) 5,000 units DAILY PO 04/22/17 09:00 05/03/17 08:25 (NS Flush) 2 ml BID IV FLUSH 04/24/17 21:00 05/03/17 08:26 (NS Flush) 2 ml UNSCH PRN IV FLUSH 04/24/17 09:30 (Glucagon Inj) 1 mg UNSCH PRN IM/SQ 04/24/17 18:15 (Aspirin) 325 mg DAILY DOBHOFF 04/27/17 09:00 05/03/17 08:25 (D50w (Syr) Inj) 25 ml UNSCH PRN IV 04/26/17 20:30 04/28/17 15:50 (Lopressor Inj) 5 mg Q5M PRN IV PUSH 04/27/17 04:00 05/03/17 09:28 Potassium Chloride 100 ml @ 50 mls/hr Q2H PRN IV 04/27/17 08:45 Potassium Chloride 100 ml @ 50 mls/hr Q2H PRN IV 04/27/17 08:45 04/27/17 16:44 (K-Lyte Cl Eff) 50 meq UNSCH PRN PO 04/27/17 08:45 Potassium Chloride 100 ml @ 25 mls/hr UNSCH PRN IV 04/27/17 08:45 Potassium Chloride 100 ml @ 50 mls/hr Q2H PRN IV 04/27/17 08:45 04/29/17 12:15 Magnesium Sulfate 4 gm/Sodium Chloride 100 ml @ 50 mls/hr UNSCH PRN IV 04/27/17 08:45 (Mag-Ox) 800 mg UNSCH PRN PO 04/27/17 08:45 Magnesium Sulfate 2 gm/Sodium Chloride 100 ml @ 50 mls/hr UNSCH PRN IV 04/27/17 08:45 (K-Phos) 2,000 mg Q4H PRN PO 04/27/17 08:45 04/28/17 15:38 Sodium Phosphate 30 mmol/Sodium Chloride 250 ml @ 42 mls/hr UNSCH PRN IV 04/27/17 08:45 04/27/17 23:59 (K-Phos) 2,000 mg UNSCH PRN PO/TUBE 04/27/17 08:45 Potassium Phosphate 30 mmol/ Sodium Chloride 260 ml @ 42 mls/hr UNSCH PRN IV 04/27/17 08:45 05/01/17 17:22 (Protonix Inj) 40 mg Q24H IV PUSH 04/28/17 17:00 05/02/17 17:01 (NovoLOG SUPPLEMENTAL SCALE) 1 ACHS SLIDING SCALE SQ 04/28/17 16:00 05/02/17 20:33 (Flagyl) 500 mg Q8HR DOBHOFF 04/29/17 14:00 05/03/17 05:55 (Duoneb Neb) 1 ampule Q4HR NEB PRN NEB 04/30/17 04:45 04/30/17 05:11 (Duoneb Neb) 1 ampule Q6HR NEB NEB 04/30/17 10:00 05/03/17 07:46 Cefepime HCl 2000 mg/Sodium Chloride 100 ml @ 200 mls/hr Q8H IV 04/30/17 09:00 05/03/17 08:27 Micafungin Sodium 100 mg/Sodium Chloride 100 ml @ 100 mls/hr Q24H IV 04/30/17 09:00 05/03/17 08:27 Pharmacy Profile Note 1,000 ml @ 30 mls/hr UNSCH OTHER 04/30/17 15:45 Vancomycin HCl 1250 mg/Sodium Chloride 262.5 ml @ 250 mls/hr Q12H IV 04/30/17 18:00 05/03/17 07:24 (Lovenox Inj) 40 mg Q24H SQ 05/01/17 08:00 05/03/17 08:25 Lactated Ringer's 1,000 ml @ 125 mls/hr Q8H IV 05/02/17 13:00 05/03/17 05:55 (Levemir Inj) 25 units Q12H SQ 05/02/17 21:00 05/03/17 08:29 (Shandra Braun MD R1) A/P Assessment and Plan 76 y/o female with HTN, DM, CVA admitted for DKA and hip fracture. Now with large MCA stroke. Neuro and client care specialist consulted. Working with palliative care for goals of care. Discharge Planning Pending stroke progression and discussion for goals of care (Shandra Braun MD R1) Attending Attestation Patient seen and examined. Case reviewed and discussed Agree with plan of care as discussed with me and documented in the resident note. (Angélica Malik MD) Problem List: (1) Acute CVA (cerebrovascular accident) ICD Codes: I63.9 - Cerebral infarction, unspecified Status: Acute Plan: Patient found minimally responsive with neurological deficits around 0820 04/24. Stat CT of head was ordered, which showed large left MCA infarct. Diffuse edema throughout the left MCA distribution, suggest completed infarct. This was discussed and was not a candidate for intracranial intervention. CT (04/30): Reduction in midline shift to 11mm. Unchanged large left MCA infarction. Echocardiogram- The left ventricular systolic function is low normal with an estimated ejection fraction in the range of 50-55%. Mild concentric left ventricular hypertrophy. Normal left ventricular size. [id number] mitral valve regurgitation. Carotid Artery US- No hemodynamically significant carotid stenosis -Consulted client care specialist, appreciate recs -Intubated/sedated; does not recommend tracheostomy -IV hydration, watch for hypotension. -Keep systolic to less than 220 -Lactated Ringer's at 125 mLs/hr -If there is no reasonable improvement by Friday will recommend pursuing comfort measures only, will reevaluate at that time -Neurosurgery consulted -Recommended conservative management -Keep Na in low to mid 150 range -Tube feeds: Glucerna 1.5 mLs for diet via Dobbhoff tube -Brush Painter consult for management and recs -Consult palliative care-appreciate recs -Case discussed with daughter in-person about goals of care, limited treatment options, and poor prognosis. -Daughter continues to want aggressive care. Wishes to allow the weekend to reevaluate patient's medical condition -Neurology consulted-appreciate recs -Rectal ASA -Lovenox 40mg daily (2) Sepsis ICD Codes: A41.9 - Sepsis, unspecified organism Status: Acute Plan: Pt meets SIRS criteria 04/30: WBC elevated to 20.7. HR up to 122. RR 20. Febrile to 101.3 Source of infection, likely pulmonary vs urinary -See antibiotics as below -Culture results as below -Monitor vitals (3) HCAP (healthcare-associated pneumonia) ICD Codes: J18.9 - Pneumonia, unspecified organism Status: Acute Plan: Chest CT (04/30): Bilateral pulmonary infiltrates more pronounced within lower lobes with b/l pleural effusions. Material in lower lobe bronchi b/l, purulent or mucus plugging CXR 05/02: Increased airspace opacity bilaterally. The pattern may represent pulmonary edema. There is likely a left pleural effusion. Suspect possible HCAP with increasing leukocytosis and fevers. Possible aspiration -Flagyl 500mg q8H (04/29 - ) -Cefepime 2g IV daily (04/30 - ) -Vancomycin IV (04/30 - ) -Legionella and strep pneumo urine tests ordered -Sputum culture showing staph aureus and Serratia Marcescens -Repeat blood cultures, with 1/4 positive; possible contaminant (4) Yeast UTI ICD Codes: B37.49 - Other urogenital candidiasis Status: Acute Plan: UA showed glucose, large number of leukocytes esterase, innumerable WBCs , rare bacteria, and few yeast Urine culture shows Lea Glabrata -Micafungin 100mg IV daily (5) Type 2 diabetes mellitus ICD Codes: E11.9 - Type 2 diabetes mellitus without complications Status: Chronic Plan: Admitted for DKA which has now resolved. Hemoglobin A1C is 12.9. Diabetes is uncontrolled. - Increase Levemir 25 units BID - Medium dose insulin sliding scale - Glucerna for NG tube feedings - Regular accuchecks q4H - Continue IV hydration (6) Atrial fibrillation ICD Codes: I48.91 - Unspecified atrial fibrillation Status: Acute Plan: Hx of intermittent Afib. Resolved with administration of Lopressor. -Continue to monitor -Lopressor PRN (7) Hip fracture ICD Codes: S72.009A - Fracture of unspecified part of neck of unspecified femur , initial encounter for closed fracture Status: Acute Plan: S/P left hip reduction ad intramedullary nail fixation on 04-21-17 -Consult orthopedics-appreciate recs * Cleared for discharge to rehabilitation * WBAT * Daily dressing changes * CM for rehabilitation placement * Follow-up in 2 weeks -Calcium/Vitamin D -Fluids as above -Tylenol, morphine PRN pain (8) Hypertension ICD Codes: I10 - Essential (primary) hypertension Status: Acute Plan: IV hydration. BPs labile -Continue fluids as above -Antihypertensives to keep SBP<180 (9) Fluids, Electrolytes, and Nutrition Status: Acute Plan: Fluids: IVF Electrolyte: on electrolyte protocol Nutrition: Glucerna tube feeds DVT ppx: SCDs/lovenox GI ppx: protonix (Shandra Braun MD R1) Problem Qualifiers (1) Sepsis: Qualified Codes: A41.9 - Sepsis, unspecified organism (2) Type 2 diabetes mellitus: Qualified Codes: E11.9 - Type 2 diabetes mellitus without complications (3) Atrial fibrillation: Qualified Codes: I48.0 - Paroxysmal atrial fibrillation (4) Hip fracture: (5) Hypertension: Qualified Codes: I10 - Essential (primary) hypertension Shandra Braun MD R1 May 03, 2017 13:50 Angélica Malik MD May 05, 2017 16:28
[2017-05-03] MEDS: PANTOPRAZOLE SODIUM 40 MG VIAL IV PUSH SCH (16:34)
--- NOTE | 2017-05-03 18:25 | HHI.NSPN ---
History Chief Complaint: intubated Interval History 76-year-old female status post left MCA distribution CVA with significant mass effect. 05/03/2017: Remains intubated. Minimal eye opening to sternal rub. Grasps left hand good strength to command. Exam Results Vital Signs Date Time Temp Pulse Resp B/P (MAP) Pulse Ox O2 Delivery O2 Flow Rate FiO2 05/03/17 16:00 90 05/03/17 16:00 99.6 23 133/62 (85) 99 05/03/17 16:00 55 05/03/17 07:00 Mechanical Ventilator 04/30/17 10:03 15.00 Intake and Output 05/03/17 05/03/17 05/04/17 08:00 16:00 00:00 Intake Total 2445 ml 445 ml Output Total 425 ml Balance 2020 ml 445 ml Physical Examination Intubated Mild eye opening to voice Tracks to the left to voice with mildly disconjugate gaze Relatively strong left grasp to command. Mild movement left leg to command. Persistent right afsaneh-plegia Lab, Micro, Other Results Laboratory Tests Test 05/03/17 05:03 White Blood Count 22.8 TH/MM3 Red Blood Count 2.64 MIL/MM3 Hemoglobin 8.1 GM/DL Hematocrit 25.9 % Mean Corpuscular Volume 98.1 FL Mean Corpuscular Hemoglobin 30.6 PG Mean Corpuscular Hemoglobin Concent 31.2 % Red Cell Distribution Width 15.0 % Platelet Count 399 TH/MM3 Mean Platelet Volume 9.7 FL Neutrophils (%) (Auto) 89.7 % Lymphocytes (%) (Auto) 5.8 % Monocytes (%) (Auto) 3.5 % Eosinophils (%) (Auto) 0.6 % Basophils (%) (Auto) 0.4 % Neutrophils # (Auto) 20.5 TH/MM3 Lymphocytes # (Auto) 1.3 TH/MM3 Monocytes # (Auto) 0.8 TH/MM3 Eosinophils # (Auto) 0.1 TH/MM3 Basophils # (Auto) 0.1 TH/MM3 CBC Comment AUTO DIFF Differential Total Cells Counted 100 Neutrophils % (Manual) 70 % Band Neutrophils % 18 % Lymphocytes % 6 % Monocytes % 1 % Neutrophils # (Manual) 21.2 TH/MM3 Myelocytes 4 % Promyelocytes 1 % Nucleated Red Blood Cells 1 /100 WBC Differential Comment FINAL DIFF MANUAL Platelet Estimate NORMAL Platelet Morphology Comment NORMAL Blood Urea Nitrogen 41 MG/DL Creatinine 0.62 MG/DL Random Glucose 155 MG/DL Total Protein 5.7 GM/DL Albumin 1.1 GM/DL Calcium Level 8.3 MG/DL Magnesium Level 2.3 MG/DL Alkaline Phosphatase 563 U/L Aspartate Amino Transf (AST/SGOT) 70 U/L Alanine Aminotransferase (ALT/SGPT) 36 U/L Total Bilirubin 0.6 MG/DL Sodium Level 157 MEQ/L Potassium Level 3.8 MEQ/L Chloride Level 120 MEQ/L Carbon Dioxide Level 28.9 MEQ/L Anion Gap 8 MEQ/L Estimat Glomerular Filtration Rate 94 ML/MIN Vancomycin Level Trough 22.8 MCG/ML Medical Decision Making Impression and Plan Impression: 1. Stable neurologic exam following left MCA CVA. Most recent CT scan head on 04/30/2017 with diminished mass effect from 14 down to 11 mm shift. Continues to follow commands intermittent on the left side. Persistent right hemiplegia Plan: Continue ventilatory support Continue keep sodium 148-154 range. Follow-up CT scan head next one-2 days to confirm continued decrease in mass effect. Parker López MD May 03, 2017 18:25
[2017-05-03] MEDS: ACETAMINOPHEN/HYDROcodone 325 MG/7.5 MG TAB PO PRN (20:17)
[2017-05-04] VITALS (18 sets, daily range): BP systolic 106–152; BP diastolic 56–80; PULSE 69–123; RESP 16–30; TEMP 98.6–100.5; O2SAT 93–100
[2017-05-04] MEDS: LACTATED RINGER'S 1000 ML INJ 1,000 ML IV SCH ×3 (02:12→21:00)
[2017-05-04] MEDS: CEFEPIME INJ 2,000 MG in SODIUM CHLORIDE 0.9% INJ 100 ML IV SCH ×2 (02:12→07:53)
[2017-05-04] MEDS: RESP: ALBUTEROL 2.5 MG/IPRATROPIUM 0.5 MG NEB (SCH) NEB ×2 (04:58→07:52)
[2017-05-04] MEDS: metroNIDAZOLE 500 MG TAB DOBHOFF SCH ×3 (05:21→20:53)
[2017-05-04] MEDS ORDERED: VANCOMYCIN INJ 1,250 MG in SODIUM CHLOR 0.9% 250 ML INJ 250 ML IV SCH (06:00)
[2017-05-04] MEDS: INSULIN ASPART SUPPLEMENTAL SCALE SQ SCH ×4 (07:00→21:00)
[2017-05-04] MEDS: ENOXAPARIN SODIUM 40 MG/0.4 ML SYRINGE SQ SCH (07:49)
[2017-05-04] MEDS: INSULIN DETEMIR 100 UNITS/ML VIAL SQ SCH ×2 (07:50→21:00)
[2017-05-04] MEDS: CHOLECALCIFEROL (VIT D3) 5000 UNIT CAP PO SCH (07:50)
[2017-05-04] MEDS: DOCUSATE SODIUM 50 MG/SENNA 8.6 MG TAB PO SCH ×2 (07:50→20:53)
[2017-05-04] MEDS: ASPIRIN 325 MG TAB DOBHOFF SCH (07:50)
[2017-05-04] MEDS: CALCIUM/VITAMIN D 250 MG/125 U TAB PO SCH ×3 (07:50→17:25)
[2017-05-04] MEDS: SODIUM CHLORIDE 0.9% FLUSH 5 ML FLUSH IV FLUSH SCH ×2 (07:53→20:53)
[2017-05-04] MEDS: MICAFUNGIN INJ 100 MG in SODIUM CHLORIDE 0.9% INJ 100 ML IV SCH (07:53)
--- NOTE | 2017-05-04 08:26 | HHI.CCPN ---
Subjective Remarks/Hospital Course 04/24: 76-year-old female with a medical history significant for prior stroke, diabetes mellitus who was admitted with DKA and a hip fracture for which she underwent ORIF on 04/21. Patient developed altered mental status and was last noted to be okay around 5:30 AM. Subsequently there was a change in her mental status and she was noted to not be moving her right side for which stroke alert was called. Head CT showed large left MCA territory ischemic infarct with edema. Patient was transferred to the ICU by family medicine service in the critical care consult was requested. I evaluated the patient following arrival to the ICU. At that time she was laying in bed with her eyes open however not following commands and had a dense right hemiplegia. Patient was also evaluated by Dr. Malave from neurology. I further discussed current event with patient's daughter following her arrival to the ICU. Per the daughter patient has been living with her since her stroke in 2014 and does ambulate however has been having problems with memory and incontinence as well as gait difficulties. She does not feel patient would want intubation or tracheostomy or PEG tube. 04/25: Patient remains encephalopathic, awake though not following commands consistently. Dense right hemiplegia persists. Appears to be awake enough to protect airway currently. Patient's daughter rescinded DNR and made a full code last evening. 04/26: Remains encephalopathic, not following commands. On Dobbhoff for tube feeds at 30 cc per hour. Had urinary retention and drained 2 L of urine after placing Leavitt catheter today. CT head done this morning with large left MCA territory infarct with left to right midline shift and significant cerebral edema. Hyperglycemia noted. Patient given mannitol earlier for increasing cerebral edema. 04/27: Remains encephalopathic, not following commands. On Dobbhoff tube feeds at 30 cc per hour. When into A. fib with RVR last night which responded with Lopressor 5 mg IV 1 dose. 04/28: Remains encephalopathic, arousable, not following commands. Moves left upper extremity spontaneously. Tolerating Dobbhoff tube feeds. Remains on nasal cannula. 04/29: Encephalopathic, eyes be arousable, moves left upper extremity spontaneously and occasionally opens eyes. Dense right hemiplegia and aphasia persists. On nasal cannula. Dobbhoff tube feeds being advanced. Patient was transfused 1 unit PRBCs yesterday. Urine culture with yeast from yesterday for which fluconazole being started. Had brief run of A. fib with RVR which improved with Lopressor IV, currently in sinus rhythm. 04/30: Worsening hypoxemic respiratory failure, currently on partial nonrebreather. Remains lethargic. WBC count increased from 14.6 today 20.7. Chest x-ray shows bilateral worsening infiltrates and small pleural effusions. Sodium 154, weight up by 8 KG. Albumin 1 mg Bumex 1. Also one dose of albumin. Remains in sinus tachycardia. Tmax 101.3 05/01: Patient was intubated yesterday for lack of airway protection, and severe hypoxemic respiratory failure from aspiration pneumonia involving multiple lobes. Patient is on the vent lethargic, no spontaneous eye opening. Chest x- ray remains unchanged. Remains intermittently febrile Tmax 101.3. WBC count improving 05/02: Remains critically ill with no improvement in mental status. Spiking fever of 101.7. Blood culture and sputum culture with staph aureus sputum also growing GNR, WBC count 22,000 now indicating worsening sepsis. Daughter still requesting aggressive care. Palliative care is following 05/03: S/P large area dominant hemisphere CVA. No neurological improvement. Now with pneumonia (infiltrate, fever, leukocytosis) and appropriate abx coverage. She will have a hard time surviving the hip fx, CVA, and pneumonia. Palliative Care needs to be a mainstay of our plan. 05/04: No improvement in neuro status. Sputum C&S allows us to narrow abx coverage to levaquin alone. Lungs remain quite congested. Enteral nutrition tolerated. Objective Vital Signs Date Time Temp Pulse Resp B/P (MAP) Pulse Ox O2 Delivery O2 Flow Rate FiO2 05/04/17 07:52 94 60 05/04/17 06:00 98 05/04/17 04:00 99.8 16 138/66 (90) 05/03/17 19:00 Mechanical Ventilator 04/30/17 10:03 15.00 Intake and Output 05/04/17 05/04/17 05/04/17 07:59 15:59 23:59 Intake Total 1963 ml Output Total 400 ml Balance 1563 ml Result Diagram: 05/03/17 0503 05/03/17 0503 Other Results Microbiology Date/Time Source Procedure Growth Status 05/03/17 13:55 Urine Catheterized Urine Legionella Antigen - Final PRESUMPTIVE NEGATIVE FOR LEGIONELLA P... Complete 05/03/17 13:55 Urine Catheterized Urine Streptococcus pneumoniae Antigen (M - Final PRESUMPTIVE NEGATIVE FOR STREPTOCOCCU... Complete Imaging Last Impressions Head CT 04/24/17 0000 Signed Impressions: Service Date/Time: April 08:42 - CONCLUSION: 1. There is a large left MCA infarct. There is edema diffusely throughout the left MCA distribution. This would suggest completed infarct. The case was discussed with Dr. Ross. We did not feel the patient was a candidate for intracranial intervention due to the completed appearance of the infarct. 2. There is an old , encephalomalacic infarct involving the watershed distribution posteriorly on the left. Arnie Middleton MD Carotid Artery Ultrasound 04/24/17 0000 Signed Impressions: Service Date/Time: , April 24, 2017 09:45 - CONCLUSION: 1. No hemodynamically significant carotid artery stenosis. Arnie Middleton MD Chest X-Ray 04/23/17 0000 Signed Impressions: Service Date/Time: Sunday, April 23, 2017 08:43 - CONCLUSION: Mild chronic interstitial changes. No acute abnormality. Deangelo Wren Jr., MD Hip X-Ray 04/21/17 0000 Signed Impressions: Service Date/Time: Friday, April 21, 2017 11:36 - CONCLUSION: Fluoroscopic images during placement of intramedullary siomara left femur. Benja Ramsey MD Hip and Pelvis X-Ray 04/20/17 0946 Signed Impressions: Service Date/Time: Thursday, April 20, 2017 10:36 - CONCLUSION: Mildly displaced intertrochanteric fracture. Benja Ramsey MD Objective Remarks Gen: Elderly female, lethargic, intubated not on sedation. HEENT: Pallor present. Moderate dark ET tube secretions Neck: No JVD, orally intubated. Chest/pulmonary:Air entry equal bilaterally, continued diffuse bilateral course rhonchi. Cardiovascular: S1-S2 regular, sinus tachycardia no gallop or murmur GI/abdomen: Soft, nontender, bowel sounds present. No guarding. Extremities: Warm bilaterally, no edema. Incision sites over left hip, thigh ORIF site clean dry and intact. No fluctuation or induration Neuro: Intubated on no sedation. No Spontaneous eye opening. Dense right hemiplegia noted. Localizes with left upper extremity, Withdraws LLE. No change. Pupils 2 mm, react. A/P Assessment and Plan Assessment: Large left MCA territory ischemic infarct Cerebral edema with midline shift Acute Encephalopathy Acute hypoxemic respiratory failure Severe sepsis HCAP/Suspected aspiration (staph aureus/Serratia) Staph aureus bacteremia Fungal UTI Right hemiplegia Left Hip fracture status post ORIF (04/21) Diabetes mellitus Prior stroke Urinary retention Plan: Neuro: Follow neuro status closely. Continue Aspirin Patient was not a candidate for thrombolysis per discussion with neurology and radiology. Repeat head CT 04/30 showed slight improvement in the midline shift and mass effect Neurosurgery consulted 04/30- Dr. López, recommended conservative management Mannitol 12.5 g IV every 6 hourly for cerebral edema, hold for ser osm >310. Follow serial osmolality. Na154, target 145-150 Maintenance with LR as Na remains excessively elevated Cardiovascular: IV hydration, watch for hypotension. Antihypertensives to keep systolic blood pressure less than to 180 mmHg LR at 125 ml per hour Pulmonary: Intubated on 04/30/17 for worsening hypoxemic respiratory failure, aspiration pneumonia Chest x-ray shows increasing bilateral infiltrates and increasing white count secondary to worsening sepsis, sputum culture with staph aureus and Serratia CT of the chest 04/30/17 showed severe bibasilar consolidation, and evidence of aspiration Overall prognosis very poor for meaningful recovery, I did not recommend tracheostomy GI/liver: Dobbhoff for tube feedings and medications. Having BM Endocrine: Insulin sliding scale. Continue increase to Levemir 25 U q12hr /renal: Strict intake output, monitor and replete electrolytes, follow BUN/creatinine. Leavitt catheter placed for urinary retention on 04/26. Change today due to fungal UTI Heme: Follow CBC and coags. ID: Convert to iv levaquin 05/04 Urine culture 04/26/17 sofie glabrata Blood culture 04/29/17 1 out of 4 bottles staph aureus Sputum culture 04/30/17 staph aureus and Serratia. Prophylaxis: SCDs. Lovenox 40 mg sq daily-cleared by Dr. Ananda Mak had extensive discussion with daughter on 04/30/17, and I explained poor prognosis due to massive stroke. I explained her lack of airway protection and need for endotracheal intubation and mechanical ventilation which she agreed. However due to the massive nature of stroke. There is no reasonable improvement in the next few days I do not recommend tracheostomy and at that time I would recommend pursuing comfort measures only. Daughter wish to continue full CODE STATUS at this time. Being followed by palliative care team. Will re evaluate Friday per daughter's request. Overall impression: Condition critical. Prognosis poor. This collection of medical problems is not survivable at her age. Persistent lung congestion. Critical Care 38 mins Charles Pedraza MD May 04, 2017 08:26
[2017-05-04] MEDS: LEVOFLOXACIN 750 MG PREMIX INJ 150 ML IV SCH (09:43)
[2017-05-04 10:05] LABS: AUTOMATED NEUTROPHIL # 19.4 TH/MM3 (1.8-7.7); BASOPHIL # 0.1 TH/MM3 (0-0.2); BASOPHIL % 0.4 % (0.0-2.0); EOSINOPHIL # 0.1 TH/MM3 (0-0.4); EOSINOPHIL % 0.6 % (0.0-4.0); HEMATOCRIT 25.6 % (35.0-46.0); HEMOGLOBIN 8.2 GM/DL (11.6-15.3); LYMPH % 5.3 % (9.0-44.0); LYMPHOCYTE # 1.1 TH/MM3 (1.0-4.8); MEAN CELL VOLUME 97.3 FL (80.0-100.0); MEAN CORPUSCULAR HEMOGLOBIN 31.1 PG (27.0-34.0); MEAN PLATELET VOLUME 9.8 FL (7.0-11.0); MONO % 3.1 % (0.0-8.0); MONOCYTE # 0.7 TH/MM3 (0-0.9); NEUT % 90.6 % (16.0-70.0); PLATELET COUNT 422 TH/MM3 (150-450); RED BLOOD COUNT 2.63 MIL/MM3 (4.00-5.30); RED CELL DISTRIBUTION WIDTH 14.5 % (11.6-17.2); WHITE BLOOD COUNT 21.4 TH/MM3 (4.0-11.0)
[2017-05-04 10:20] LABS: ALT (GPT) 41 U/L (10-53); AST (GOT) 84 U/L (15-37); BICARBONATE 28.6 MEQ/L (21.0-32.0); BLOOD UREA NITROGEN 40 MG/DL (7-18); CALCIUM 8.1 MG/DL (8.5-10.1); CHLORIDE 116 MEQ/L (98-107); CREATININE 0.46 MG/DL (0.50-1.00); GLOMERULAR FILTRATION RATE 133 ML/MIN (>89); GLUCOSE,RANDOM 101 MG/DL (74-106); MAGNESIUM 2.2 MG/DL (1.5-2.5); PHOSPHORUS 1.4 MG/DL (2.5-4.9); SODIUM (NA) 151 MEQ/L (136-145)
[2017-05-04 10:23] LABS: ALKALINE PHOSPHATASE 807 U/L (45-117); TOTAL BILIRUBIN ADULT 0.5 MG/DL (0.2-1.0); TOTAL PROTEIN 5.6 GM/DL (6.4-8.2); VANCOMYCIN TROUGH 23.8 MCG/ML (5.0-10.0)
[2017-05-04 11:43] LABS: BANDS 35 % (0-6); CORRECTED NUCLEATED RBC 1 /100 WBC (0-0); LYMPHOCYTES 1 % (9-44); METAMYELOCYTES 2 % (0-1); MONOCYTES 7 % (0-8); NEUTROPHIL # MANUAL DIFF 19.7 TH/MM3 (1.8-7.7); NUCLEATED RED BLOOD CELL 1 (0-0); POLYS (SEG NEUTROPHILS) 55 % (16-70)
--- NOTE | 2017-05-04 15:13 | HHI.FPPN ---
Subjective Remarks Saw and examined the patient this morning. Failed CPAP trial this morning per nurse, but no acute events overnight. (Shandra Braun MD R1) Objective Vitals Vital Signs Date Time Temp Pulse Resp B/P (MAP) Pulse Ox O2 Delivery O2 Flow Rate FiO2 05/04/17 14:00 98.7 94 16 131/64 (86) 97 05/04/17 14:00 94 05/04/17 12:00 60 05/04/17 12:00 94 05/04/17 11:35 95 60 05/04/17 10:00 113 05/04/17 08:00 100.5 116 19 149/80 (103) 94 05/04/17 08:00 60 05/04/17 08:00 116 05/04/17 07:52 94 60 05/04/17 07:00 85 Mechanical Ventilator 05/04/17 06:00 98 05/04/17 04:58 97 60 05/04/17 04:00 60 05/04/17 04:00 99.8 86 16 138/66 (90) 97 05/04/17 04:00 86 05/04/17 02:00 87 05/04/17 01:11 99 60 05/04/17 00:00 82 05/04/17 00:00 60 05/04/17 00:00 98.6 82 16 106/56 (73) 100 05/03/17 22:00 86 05/03/17 20:33 98 60 05/03/17 20:00 60 05/03/17 20:00 80 05/03/17 20:00 98.2 80 22 167/83 (111) 100 05/03/17 19:00 100 Mechanical Ventilator 45 05/03/17 18:00 83 05/03/17 16:00 90 05/03/17 16:00 99.6 90 23 133/62 (85) 99 05/03/17 16:00 55 05/03/17 15:36 93 55 I/O 05/03/17 05/03/17 05/03/17 05/04/17 05/04/17 05/04/17 07:00 15:00 23:00 07:00 15:00 23:00 Intake Total 2178 ml 712 ml 1687 ml 2636 ml 450 ml Output Total 425 ml 375 ml 400 ml Balance 1753 ml 712 ml 1312 ml 2236 ml 450 ml IV Total 1495 ml 712 ml 1079 ml 1911 ml 450 ml Tube Feeding 563 ml 528 ml 575 ml Tube Irrigant 120 ml 80 ml 150 ml Output Urine Total 425 ml 375 ml 400 ml # Bowel Movements 0 0 1 (Shandra Braun MD R1) Result Diagram: 05/04/17 0942 05/04/17 0942 Objective Remarks CONSTITUTIONAL/GEN: Nonverbal, lying in bed. Intubated, sedated LUNGS: coarse breath sounds throughout, improved CARDIOVASCULAR: Regular rate and rhythm without murmur or gallop. GI/ABD: soft without masses, without organomegaly. NEURO: Intubated and sedated with spontaneous eye opening. MUSC: Bandages on lateral left hip and thigh are clean dry and intact. SCDs on bilateral lower extremities Procedures ORIF 04/21/17 Intubation 04/30/17 (Shandra Braun MD R1) A/P Assessment and Plan 76 y/o female with HTN, DM, CVA admitted for DKA and hip fracture. Now with large MCA stroke. Neuro and straw hat brim raiser operator consulted. Working with palliative care for goals of care. Discharge Planning Pending stroke progression and discussion for goals of care (Shandra Braun MD R1) Attending Attestation Patient seen and examined. Case reviewed and discussed Agree with plan of care as discussed with me and documented in the resident note. (Angélica Malik MD) Problem List: (1) Acute CVA (cerebrovascular accident) ICD Codes: I63.9 - Cerebral infarction, unspecified Status: Acute Plan: Patient found minimally responsive with neurological deficits around 0820 04/24. Stat CT of head was ordered, which showed large left MCA infarct. Diffuse edema throughout the left MCA distribution, suggest completed infarct. This was discussed and was not a candidate for intracranial intervention. CT (04/30): Reduction in midline shift to 11mm. Unchanged large left MCA infarction. Echocardiogram- The left ventricular systolic function is low normal with an estimated ejection fraction in the range of 50-55%. Mild concentric left ventricular hypertrophy. Normal left ventricular size. [id number] mitral valve regurgitation. Carotid Artery US- No hemodynamically significant carotid stenosis -Consulted straw hat brim raiser operator, appreciate recs -Intubated/sedated; does not recommend tracheostomy -IV hydration, watch for hypotension. -Keep systolic to less than 220 -Lactated Ringer's at 125 mLs/hr -If there is no reasonable improvement by Friday will recommend pursuing comfort measures only, will reevaluate at that time -Neurosurgery consulted -Recommended conservative management -Keep Na in low to mid 150 range -Tube feeds: Glucerna 1.5 mLs for diet via Dobbhoff tube -Practical Nursing Teacher consult for management and recs -Consult palliative care-appreciate recs -Case discussed with daughter in-person about goals of care, limited treatment options, and poor prognosis. -Daughter continues to want aggressive care. Wishes to allow the weekend to reevaluate patient's medical condition -Neurology consulted-appreciate recs -Rectal ASA -Lovenox 40mg daily (2) Sepsis ICD Codes: A41.9 - Sepsis, unspecified organism Status: Acute Plan: Pt meets SIRS criteria 04/30: WBC elevated to 20.7. HR up to 122. RR 20. Febrile to 101.3 Source of infection, likely pulmonary vs urinary -See antibiotics as below -Culture results as below -Monitor vitals (3) HCAP (healthcare-associated pneumonia) ICD Codes: J18.9 - Pneumonia, unspecified organism Status: Acute Plan: Chest CT (04/30): Bilateral pulmonary infiltrates more pronounced within lower lobes with b/l pleural effusions. Material in lower lobe bronchi b/l, purulent or mucus plugging CXR 05/02: Increased airspace opacity bilaterally. The pattern may represent pulmonary edema. There is likely a left pleural effusion. Suspect possible HCAP with increasing leukocytosis and fevers. Possible aspiration -Start Levaquin IV (05/04- ) -Flagyl 500mg q8H (04/29 - ) -Cefepime 2g IV daily (04/30 -05/04 ) -Vancomycin IV (04/30 -05/04 ) -Legionella and strep pneumo urine tests ordered -Sputum culture showing staph aureus and Serratia Marcescens -Repeat blood cultures, with 1/4 positive; possible contaminant (4) Yeast UTI ICD Codes: B37.49 - Other urogenital candidiasis Status: Acute Plan: UA showed glucose, large number of leukocytes esterase, innumerable WBCs , rare bacteria, and few yeast Urine culture shows Lea Glabrata -Micafungin 100mg IV daily (5) Type 2 diabetes mellitus ICD Codes: E11.9 - Type 2 diabetes mellitus without complications Status: Chronic Plan: Admitted for DKA which has now resolved. Hemoglobin A1C is 12.9. Diabetes is uncontrolled. - Increase Levemir 25 units BID - Medium dose insulin sliding scale - Glucerna for NG tube feedings - Regular accuchecks q4H - Continue IV hydration (6) Atrial fibrillation ICD Codes: I48.91 - Unspecified atrial fibrillation Status: Acute Plan: Hx of intermittent Afib. Resolved with administration of Lopressor. -Continue to monitor -Lopressor PRN (7) Hip fracture ICD Codes: S72.009A - Fracture of unspecified part of neck of unspecified femur , initial encounter for closed fracture Status: Acute Plan: S/P left hip reduction ad intramedullary nail fixation on 04-21-17 -Consult orthopedics-appreciate recs * Cleared for discharge to rehabilitation * WBAT * Daily dressing changes * CM for rehabilitation placement * Follow-up in 2 weeks -Calcium/Vitamin D -Fluids as above -Tylenol, morphine PRN pain (8) Hypertension ICD Codes: I10 - Essential (primary) hypertension Status: Acute Plan: IV hydration. BPs labile -Continue fluids as above -Antihypertensives to keep SBP<180 (9) Fluids, Electrolytes, and Nutrition Status: Acute Plan: Fluids: IVF Electrolyte: on electrolyte protocol Nutrition: Glucerna tube feeds DVT ppx: SCDs/lovenox GI ppx: protonix (Shandra Braun MD R1) Problem Qualifiers (1) Sepsis: Qualified Codes: A41.9 - Sepsis, unspecified organism (2) Type 2 diabetes mellitus: Qualified Codes: E11.9 - Type 2 diabetes mellitus without complications (3) Atrial fibrillation: Qualified Codes: I48.0 - Paroxysmal atrial fibrillation (4) Hip fracture: (5) Hypertension: Qualified Codes: I10 - Essential (primary) hypertension Shandra Braun MD R1 May 04, 2017 15:13 Angélica Malik MD May 05, 2017 16:27
[2017-05-04] MEDS: PANTOPRAZOLE SODIUM 40 MG VIAL IV PUSH SCH (16:05)
[2017-05-04] MEDS: DEXTROSE 50% IN WATER 50 ML SYRINGE IV PRN ×3 (16:05→20:53)
--- NOTE | 2017-05-04 16:37 | HHI.NSPN ---
History Chief Complaint: intubated Interval History 76-year-old female status post left MCA distribution CVA with significant mass effect. 05/03/2017: Remains intubated. Minimal eye opening to sternal rub. Grasps left hand good strength to command. Exam Results Vital Signs Date Time Temp Pulse Resp B/P (MAP) Pulse Ox O2 Delivery O2 Flow Rate FiO2 05/04/17 15:57 95 60 05/04/17 14:00 98.7 94 16 131/64 (86) 05/04/17 07:00 Mechanical Ventilator 04/30/17 10:03 15.00 Intake and Output 05/04/17 05/04/17 05/05/17 08:00 16:00 00:00 Intake Total 2636 ml 450 ml Output Total 400 ml Balance 2236 ml 450 ml Physical Examination Intubated Moderate intermittent eye opening to voice Tracks and focuses to the left to voice with mildly disconjugate gaze Relatively strong left grasp to command. Moderate movement left leg to command. Persistent right afsaneh-plegia Lab, Micro, Other Results Laboratory Tests Test 05/04/17 09:42 White Blood Count 21.4 TH/MM3 Red Blood Count 2.63 MIL/MM3 Hemoglobin 8.2 GM/DL Hematocrit 25.6 % Mean Corpuscular Volume 97.3 FL Mean Corpuscular Hemoglobin 31.1 PG Mean Corpuscular Hemoglobin Concent 32.0 % Red Cell Distribution Width 14.5 % Platelet Count 422 TH/MM3 Mean Platelet Volume 9.8 FL Neutrophils (%) (Auto) 90.6 % Lymphocytes (%) (Auto) 5.3 % Monocytes (%) (Auto) 3.1 % Eosinophils (%) (Auto) 0.6 % Basophils (%) (Auto) 0.4 % Neutrophils # (Auto) 19.4 TH/MM3 Lymphocytes # (Auto) 1.1 TH/MM3 Monocytes # (Auto) 0.7 TH/MM3 Eosinophils # (Auto) 0.1 TH/MM3 Basophils # (Auto) 0.1 TH/MM3 CBC Comment AUTO DIFF Differential Total Cells Counted 100 Neutrophils % (Manual) 55 % Band Neutrophils % 35 % Lymphocytes % 1 % Monocytes % 7 % Neutrophils # (Manual) 19.7 TH/MM3 Metamyelocytes 2 % Nucleated Red Blood Cells 1 /100 WBC Differential Comment FINAL DIFF MANUAL Platelet Estimate NORMAL Platelet Morphology Comment NORMAL Blood Urea Nitrogen 40 MG/DL Creatinine 0.46 MG/DL Random Glucose 101 MG/DL Total Protein 5.6 GM/DL Albumin 1.0 GM/DL Calcium Level 8.1 MG/DL Phosphorus Level 1.4 MG/DL Magnesium Level 2.2 MG/DL Alkaline Phosphatase 807 U/L Aspartate Amino Transf (AST/SGOT) 84 U/L Alanine Aminotransferase (ALT/SGPT) 41 U/L Total Bilirubin 0.5 MG/DL Sodium Level 151 MEQ/L Potassium Level 3.6 MEQ/L Chloride Level 116 MEQ/L Carbon Dioxide Level 28.6 MEQ/L Anion Gap 6 MEQ/L Estimat Glomerular Filtration Rate 133 ML/MIN Vancomycin Level Trough 23.8 MCG/ML Medical Decision Making Impression and Plan Impression: 1. Stable neurologic exam following left MCA CVA. Most recent CT scan head on 04/30/2017 with diminished mass effect from 14 down to 11 mm shift. Continues to follow commands intermittent on the left side. Persistent right hemiplegia Plan: Continue ventilatory support Continue keep sodium 148-154 range. Follow-up CT scan head next one-2 days to confirm continued decrease in mass effect. Her examination continues to gradually improve. She is more alert today, following commands on the left side consistently and focusing to the left and opening her eyes rather well intermittently to voice. Moderate primarily right-sided edema with approximately 10 kg increase weight over the past few days and decreased urine output. We will give 2 doses Lasix today Parker López MD May 04, 2017 16:37
[2017-05-04] MEDS: FUROSEMIDE 20 MG/2 ML VIAL IV PUSH SCH (17:25)
--- NOTE | 2017-05-04 17:26 | HHI.PR ---
Addendum to Inpatient Note Addendum Reason: Additional Documentation Additional Information Off service note Mrs. Hein is a 76-year-old Slovenian speaking female with a past medical history of diabetes and dementia who presented to the ED on 04/24 for DKA and left hip fracture. She was found have an following that morning in by her daughter covered in urine and feces with her hip broken. Her blood glucose upon admission was 559. She was admitted to the ICU on an insulin drip. Her DKA quickly resolved. Hip and pelvis x-ray showed mildly depressed place left intertrochanteric fracture. Orthopedic surgery was consulted and she got an ORIF on 04/21. She was cleared by orthopedic surgery on 04/23. Then on 04/20 4 in the morning the family medicine team found her nonresponsive with right hemiplegia. Head CT showed a large left MCA infarct with diffuse edema. She was then transferred to the ICU. Critical care, palliative care, neurology were all consulted. Her daughter initially wanted her to be DNR, but later changed her mind after speaking to distant relatives in [facility]. She was then changed to full code. Her condition has since deteriorated. She was intubated on 04/30. Last head CT conducted on 04/30 showed reduction in the midline shift from 14-11 mm. Unchanged large left MCA territory. NG tube was placed on 04/25. A conversation should be had with her daughter this week about switching to feeding tube. (Shandra Braun MD R1) Shandra Braun MD R1 May 04, 2017 17:26 Angélica Malik MD May 05, 2017 16:29
[2017-05-04 20:07] LABS: MAGNESIUM 2.1 MG/DL (1.5-2.5)
[2017-05-04] MEDS: RESP: ALBUTEROL 2.5 MG/IPRATROPIUM 0.5 MG NEB (PRN) NEB (20:38)
[2017-05-04] MEDS: POTASSIUM PHOSPHATE INJ 30 MMOL in SODIUM CHLOR 0.9% 250 ML INJ 250 ML IV PRN (20:54)
[2017-05-05] VITALS (19 sets, daily range): BP systolic 108–148; BP diastolic 59–87; PULSE 94–113; RESP 18–27; TEMP 97.2–99.7; O2SAT 92–98
[2017-05-05] MEDS: DEXTROSE 50% IN WATER 50 ML SYRINGE IV PRN
[2017-05-05] MEDS ORDERED: RESP: ALBUTEROL 2.5 MG/IPRATROPIUM 0.5 MG NEB (SCH) NEB (01:00)
[2017-05-05] MEDS: LACTATED RINGER'S 1000 ML INJ 1,000 ML IV SCH ×2 (05:15→08:39)
[2017-05-05] MEDS: INSULIN ASPART SUPPLEMENTAL SCALE SQ SCH ×4 (06:18→21:38)
[2017-05-05] MEDS: metroNIDAZOLE 500 MG TAB DOBHOFF SCH ×3 (06:45→21:38)
[2017-05-05 07:30] LABS: AUTOMATED NEUTROPHIL # 18.2 TH/MM3 (1.8-7.7); BASOPHIL # 0.2 TH/MM3 (0-0.2); BASOPHIL % 0.8 % (0.0-2.0); EOSINOPHIL # 0.1 TH/MM3 (0-0.4); EOSINOPHIL % 0.4 % (0.0-4.0); HEMATOCRIT 25.1 % (35.0-46.0); HEMOGLOBIN 8.1 GM/DL (11.6-15.3); LYMPH % 7.6 % (9.0-44.0); LYMPHOCYTE # 1.6 TH/MM3 (1.0-4.8); MEAN CELL VOLUME 94.4 FL (80.0-100.0); MEAN CORPUSCULAR HEMOGLOBIN 30.6 PG (27.0-34.0); MEAN CORPUSCULAR HGB CONC 32.4 % (32.0-36.0); MEAN PLATELET VOLUME 10.5 FL (7.0-11.0); MONO % 3.1 % (0.0-8.0); MONOCYTE # 0.6 TH/MM3 (0-0.9); NEUT % 88.1 % (16.0-70.0); PLATELET COUNT 393 TH/MM3 (150-450); RED BLOOD COUNT 2.66 MIL/MM3 (4.00-5.30); RED CELL DISTRIBUTION WIDTH 14.4 % (11.6-17.2); WHITE BLOOD COUNT 20.6 TH/MM3 (4.0-11.0)
[2017-05-05 07:37] LABS: ALBUMIN 0.9 GM/DL (3.4-5.0); BICARBONATE 26.7 MEQ/L (21.0-32.0); CALCIUM 7.2 MG/DL (8.5-10.1); CREATININE 0.36 MG/DL (0.50-1.00); PHOSPHORUS 2.7 MG/DL (2.5-4.9); TOTAL BILIRUBIN ADULT 0.6 MG/DL (0.2-1.0)
[2017-05-05] MEDS: RESP: ALBUTEROL 2.5 MG/IPRATROPIUM 0.5 MG NEB (SCH) NEB ×3 (07:47→19:44)
--- NOTE | 2017-05-05 07:54 | PD.ORT.PN ---
Subjective Subjective Remarks POD 14 s/p IMN left hip intubated/sedated on unit. Objective Vitals Vital Signs Date Time Temp Pulse Resp B/P (MAP) Pulse Ox O2 Delivery O2 Flow Rate FiO2 05/05/17 07:39 94 55 05/05/17 06:00 95 05/05/17 04:30 97 60 05/05/17 04:00 98.8 99 24 148/87 (107) 97 05/05/17 04:00 99 05/05/17 04:00 60 05/05/17 02:00 99 05/05/17 00:00 113 05/05/17 00:00 60 05/05/17 00:00 99.2 113 27 144/82 (102) 96 05/04/17 22:00 123 05/04/17 20:39 96 60 05/04/17 20:00 99.6 108 30 145/75 (98) 93 05/04/17 20:00 108 05/04/17 20:00 60 05/04/17 19:00 100 Mechanical Ventilator 60 05/04/17 18:00 98 05/04/17 16:00 60 05/04/17 16:00 100.1 99 19 152/72 (98) 95 05/04/17 16:00 94 05/04/17 15:57 95 60 05/04/17 14:00 98.7 94 16 131/64 (86) 97 05/04/17 14:00 94 05/04/17 12:00 60 05/04/17 12:00 94 05/04/17 11:35 95 60 05/04/17 10:00 113 05/04/17 08:00 100.5 116 19 149/80 (103) 94 05/04/17 08:00 60 05/04/17 08:00 116 I/O 05/04/17 05/04/17 05/04/17 05/05/17 05/05/17 05/05/17 07:00 15:00 23:00 07:00 15:00 23:00 Intake Total 2636 ml 450 ml 760 ml 1810 ml Output Total 400 ml 850 ml 500 ml Balance 2236 ml 450 ml -90 ml 1310 ml IV Total 1911 ml 450 ml 1183 ml Tube Feeding 575 ml 600 ml 567 ml Tube Irrigant 150 ml 160 ml 60 ml Output Urine Total 400 ml 850 ml 500 ml # Bowel Movements 1 0 1 Result Diagram: 05/05/17 0610 05/05/17 0610 Imaging Last [address] 04/20/17 0840 Signed Impressions: Service Date/Time: Thursday, April 20, 2017 08:59 - CONCLUSION: 1. Remote infarcts. 2. No acute hemorrhage. Benja Ramsey MD Chest X-Ray 04/20/17839 Signed Impressions: Service Date/Time: Thursday, April 20, 2017 09:13 - CONCLUSION: Chronic interstitial densities. Benja Ramsey MD Objective Remarks LLE: no dressings present. incisions are clean and dry. intact. slight staple irritation. no drainage Assessment & Plan Assessment and Plan 1) Left Intertroch Hip Fx s/p IMN - POD 14 -WBAT -DC ginger today -redress with xeroform/primapore -may DC dressings in 3 days -xrays ordered today of left hip -f/u with Wilian or PA in 1 month Bennett Teixeira May 05, 2017 07:54
[2017-05-05] MEDS: SODIUM CHLORIDE 0.9% FLUSH 5 ML FLUSH IV FLUSH SCH ×2 (09:00→21:38)
[2017-05-05] MEDS: CALCIUM/VITAMIN D 250 MG/125 U TAB PO SCH ×3 (09:03→16:46)
[2017-05-05] MEDS: DOCUSATE SODIUM 50 MG/SENNA 8.6 MG TAB PO SCH ×3 (09:04→21:38)
[2017-05-05] MEDS: CHOLECALCIFEROL (VIT D3) 5000 UNIT CAP PO SCH (09:04)
[2017-05-05] MEDS: ASPIRIN 325 MG TAB DOBHOFF SCH (09:04)
[2017-05-05] MEDS: MICAFUNGIN INJ 100 MG in SODIUM CHLORIDE 0.9% INJ 100 ML IV SCH (09:04)
[2017-05-05] MEDS: FUROSEMIDE 20 MG/2 ML VIAL IV PUSH SCH (09:05)
[2017-05-05] MEDS: ENOXAPARIN SODIUM 40 MG/0.4 ML SYRINGE SQ SCH (09:09)
--- NOTE | 2017-05-05 09:17 | HHI.CCPN ---
Subjective Remarks/Hospital Course 04/24: 76-year-old female with a medical history significant for prior stroke, diabetes mellitus who was admitted with DKA and a hip fracture for which she underwent ORIF on 04/21. Patient developed altered mental status and was last noted to be okay around 5:30 AM. Subsequently there was a change in her mental status and she was noted to not be moving her right side for which stroke alert was called. Head CT showed large left MCA territory ischemic infarct with edema. Patient was transferred to the ICU by family medicine service in the critical care consult was requested. I evaluated the patient following arrival to the ICU. At that time she was laying in bed with her eyes open however not following commands and had a dense right hemiplegia. Patient was also evaluated by Dr. Malave from neurology. I further discussed current event with patient's daughter following her arrival to the ICU. Per the daughter patient has been living with her since her stroke in 2014 and does ambulate however has been having problems with memory and incontinence as well as gait difficulties. She does not feel patient would want intubation or tracheostomy or PEG tube. 04/25: Patient remains encephalopathic, awake though not following commands consistently. Dense right hemiplegia persists. Appears to be awake enough to protect airway currently. Patient's daughter rescinded DNR and made a full code last evening. 04/26: Remains encephalopathic, not following commands. On Dobbhoff for tube feeds at 30 cc per hour. Had urinary retention and drained 2 L of urine after placing Leavitt catheter today. CT head done this morning with large left MCA territory infarct with left to right midline shift and significant cerebral edema. Hyperglycemia noted. Patient given mannitol earlier for increasing cerebral edema. 04/27: Remains encephalopathic, not following commands. On Dobbhoff tube feeds at 30 cc per hour. When into A. fib with RVR last night which responded with Lopressor 5 mg IV 1 dose. 04/28: Remains encephalopathic, arousable, not following commands. Moves left upper extremity spontaneously. Tolerating Dobbhoff tube feeds. Remains on nasal cannula. 04/29: Encephalopathic, eyes be arousable, moves left upper extremity spontaneously and occasionally opens eyes. Dense right hemiplegia and aphasia persists. On nasal cannula. Dobbhoff tube feeds being advanced. Patient was transfused 1 unit PRBCs yesterday. Urine culture with yeast from yesterday for which fluconazole being started. Had brief run of A. fib with RVR which improved with Lopressor IV, currently in sinus rhythm. 04/30: Worsening hypoxemic respiratory failure, currently on partial nonrebreather. Remains lethargic. WBC count increased from 14.6 today 20.7. Chest x-ray shows bilateral worsening infiltrates and small pleural effusions. Sodium 154, weight up by 8 KG. Albumin 1 mg Bumex 1. Also one dose of albumin. Remains in sinus tachycardia. Tmax 101.3 05/01: Patient was intubated yesterday for lack of airway protection, and severe hypoxemic respiratory failure from aspiration pneumonia involving multiple lobes. Patient is on the vent lethargic, no spontaneous eye opening. Chest x- ray remains unchanged. Remains intermittently febrile Tmax 101.3. WBC count improving 05/02: Remains critically ill with no improvement in mental status. Spiking fever of 101.7. Blood culture and sputum culture with staph aureus sputum also growing GNR, WBC count 22,000 now indicating worsening sepsis. Daughter still requesting aggressive care. Palliative care is following 05/03: S/P large area dominant hemisphere CVA. No neurological improvement. Now with pneumonia (infiltrate, fever, leukocytosis) and appropriate abx coverage. She will have a hard time surviving the hip fx, CVA, and pneumonia. Palliative Care needs to be a mainstay of our plan. 05/04: No improvement in neuro status. Sputum C&S allows us to narrow abx coverage to levaquin alone. Lungs remain quite congested. Enteral nutrition tolerated. 05/05: No improvement in neuro status. Moves left arm spontaneously. Flaccid right side. Unresponsive. Persistent mild hypoglycemia - will cut levemir 50%. Abdomen more distended, check KUB. Objective Vital Signs Date Time Temp Pulse Resp B/P (MAP) Pulse Ox O2 Delivery O2 Flow Rate FiO2 05/05/17 07:39 94 55 05/05/17 06:00 95 05/05/17 04:00 98.8 24 148/87 (107) 05/04/17 19:00 Mechanical Ventilator Intake and Output 05/05/17 05/05/17 05/06/17 08:00 16:00 00:00 Intake Total 1810 ml Output Total 500 ml Balance 1310 ml Result Diagram: 05/05/17 0610 05/05/17 06 Other Results Microbiology Date/Time Source Procedure Growth Status 05/03/17 13:55 Urine Catheterized Urine Legionella Antigen - Final PRESUMPTIVE NEGATIVE FOR LEGIONELLA P... Complete 05/03/17 13:55 Urine Catheterized Urine Streptococcus pneumoniae Antigen (M - Final PRESUMPTIVE NEGATIVE FOR STREPTOCOCCU... Complete Imaging Last Impressions Head CT 04/24/17 0000 Signed Impressions: Service Date/Time: April 08:42 - CONCLUSION: 1. There is a large left MCA infarct. There is edema diffusely throughout the left MCA distribution. This would suggest completed infarct. The case was discussed with Dr. Ross. We did not feel the patient was a candidate for intracranial intervention due to the completed appearance of the infarct. 2. There is an old , encephalomalacic infarct involving the watershed distribution posteriorly on the left. Arnie Middleton MD Carotid Artery Ultrasound 04/24/17 0000 Signed Impressions: Service Date/Time: April 09:45 - CONCLUSION: 1. No hemodynamically significant carotid artery stenosis. Arnie Middleton MD Chest X-Ray 04/23/17 0000 Signed Impressions: Service Date/Time: Sunday, April 23, 2017 08:43 - CONCLUSION: Mild chronic interstitial changes. No acute abnormality. Deangelo Wren Jr., MD Hip X-Ray 04/21/17 0000 Signed Impressions: Service Date/Time: Friday, April 21, 2017 11:36 - CONCLUSION: Fluoroscopic images during placement of intramedullary siomara left femur. Benja Ramsey MD Hip and Pelvis X-Ray 04/20/17 0946 Signed Impressions: Service Date/Time: Thursday, April 20, 2017 10:36 - CONCLUSION: Mildly displaced intertrochanteric fracture. Benja Ramsey MD Objective Remarks Gen: Elderly female, lethargic, intubated not on sedation. HEENT: Pallor present. Moderate dark ET tube secretions Neck: No JVD, orally intubated. Chest/pulmonary:Air entry equal bilaterally, continued diffuse bilateral course rhonchi. Cardiovascular: S1-S2 regular, sinus tachycardia no gallop or murmur GI/abdomen: Soft, nontender, bowel sounds present. No guarding. Extremities: Warm bilaterally, no edema. Incision sites over left hip, thigh ORIF site clean dry and intact. No fluctuation or induration Neuro: Intubated on no sedation. No Spontaneous eye opening. Dense right hemiplegia noted. Localizes with left upper extremity, Withdraws LLE. No change. Pupils 2 mm, react. A/P Assessment and Plan Assessment: Large left MCA territory ischemic infarct Cerebral edema with midline shift Acute Encephalopathy Acute hypoxemic respiratory failure Severe sepsis HCAP/Suspected aspiration (staph aureus/Serratia) Staph aureus bacteremia Fungal UTI Right hemiplegia Left Hip fracture status post ORIF (04/21) Diabetes mellitus Prior stroke Urinary retention Plan: Neuro: Follow neuro status closely. Continue Aspirin Patient was not a candidate for thrombolysis per discussion with neurology and radiology. Repeat head CT 04/30 showed slight improvement in the midline shift and mass effect Neurosurgery consulted 04/30- Dr. López, recommended conservative management Mannitol 12.5 g IV every 6 hourly for cerebral edema, hold for ser osm >310. Follow serial osmolality. Na154, target 145-150 Maintenance with LR as Na remains excessively elevated Taper LR. Cardiovascular: IV hydration, watch for hypotension. Antihypertensives to keep systolic blood pressure less than to 180 mmHg LR at 75 ml per hour Pulmonary: Intubated on 04/30/17 for worsening hypoxemic respiratory failure, aspiration pneumonia Chest x-ray shows increasing bilateral infiltrates and increasing white count secondary to worsening sepsis, sputum culture with staph aureus and Serratia CT of the chest 04/30/17 showed severe bibasilar consolidation, and evidence of aspiration Overall prognosis very poor for meaningful recovery, I did not recommend tracheostomy GI/liver: Dobbhoff for tube feedings and medications. Having BM Abdomen distended today, check KUB 05/05 Endocrine: Insulin sliding scale. Continue increase to Levemir 25 U q12hr /renal: Strict intake output, monitor and replete electrolytes, follow BUN/creatinine. Leavitt catheter placed for urinary retention on 04/26. Change today due to fungal UTI Heme: Follow CBC and coags. ID: Convert to iv levaquin 05/04 Urine culture 04/26/17 sofie glabrata Blood culture 04/29/17 1 out of 4 bottles staph aureus Sputum culture 04/30/17 staph aureus and Serratia. Prophylaxis: SCDs. Lovenox 40 mg sq daily-cleared by Dr. Malave Etensive discussion with daughter on 04/30/17, and I explained poor prognosis due to massive stroke. I explained her lack of airway protection and need for endotracheal intubation and mechanical ventilation which she agreed. However due to the massive nature of stroke. There is no reasonable improvement in the next few days I do not recommend tracheostomy and at that time I would recommend pursuing comfort measures only. Daughter wish to continue full CODE STATUS at this time. Being followed by palliative care team. Will re evaluate Friday per daughter's request. Overall impression: Condition critical. Prognosis poor. This collection of medical problems is not survivable at her age. Persistent lung congestion. Critical Care 35 mins Charles Pedraza MD May 05, 2017 09:17
[2017-05-05 09:22] LABS: BANDS 16 % (0-6); CORRECTED NUCLEATED RBC 2 /100 WBC (0-0); LYMPHOCYTES 7 % (9-44); METAMYELOCYTES 1 % (0-1); MONOCYTES 1 % (0-8); MYELOCYTES 2 % (0-0); NEUTROPHIL # MANUAL DIFF 18.7 TH/MM3 (1.8-7.7); NUCLEATED RED BLOOD CELL 2 (0-0); POLYS (SEG NEUTROPHILS) 72 % (16-70)
[2017-05-05] MEDS: LEVOFLOXACIN 750 MG PREMIX INJ 150 ML IV SCH (10:54)
[2017-05-05] MEDS: LACTULOSE SYRUP 20 GM/30 ML CUP PO SCH (11:10)
--- NOTE | 2017-05-05 12:22 | RADRPT ---
EXAM DATE/TIME: 05/05/2017 10:51 [facility] COMPARISON: No previous studies available for comparison. INDICATIONS : Distention. MEDICAL HISTORY : Hypertension. Diabetes mellitus type I. SURGICAL HISTORY : None. ENCOUNTER: Initial ACUITY: 1 day PAIN SCORE: Non-responsive. LOCATION: Bilateral abdomen. FINDINGS: Supine view of the abdomen was performed. The abdominal bowel gas pattern is normal. No abnormal ma sses, calcifications, or organomegaly is seen. The osseous structures are unremarkable. Dobbhoff fee ding tube tip overlies the gastric air bubble. Calcified uterine fibroid suspected in the right hemip devin measuring 1.3 cm. Temperature probe overlies the rectum. Left hip siomara and screw fixation with a proximal femur fracture lucency noted. CONCLUSION: Left femoral fracture lucency. Nonobstructive bowel gas pattern. Choco Mustafa MD on May 05, 2017 at 12:20 Board Certified Radiologist. This report was verified electronically.
--- NOTE | 2017-05-05 12:28 | RADRPT ---
EXAM DATE/TIME: 05/05/2017 10:59 [facility] COMPARISON: No previous studies available for comparison. INDICATIONS : Pain. MEDICAL HISTORY : Prior fracture. SURGICAL HISTORY : Femoral siomara placement. ENCOUNTER: Initial ACUITY: 1 day PAIN SCORE: Non-responsive. LOCATION: Left hip. FINDINGS: Patient has a known left proximal femur fracture the trochanteric level. Intramedullary siomara and femor al neck screw fixation is identified. On the AP view of the pelvis there is a fracture lucency seen i n the trochanteric and subtrochanteric level left proximal femur. A temperature probe overlies the re ctum. 4 cm calcified uterine fibroid in the pelvis. CONCLUSION: Left proximal femur trochanteric/subtrochanteric fracture lucency visualized. Postoperative changes. Choco Mustafa MD on May 05, 2017 at 12:24 Board Certified Radiologist. This report was verified electronically.
--- NOTE | 2017-05-05 14:41 | HHI.FPPN ---
Subjective Remarks Pt more obtunded today with abdominal distension and right arm/hand swelling. Slightly decreased leukocytosis. Pt still intubated. KUB pending. Palliative care consulted with poor prognosis. (Chuy Camacho MD R1) Objective Vitals Vital Signs Date Time Temp Pulse Resp B/P (MAP) Pulse Ox O2 Delivery O2 Flow Rate FiO2 05/05/17 11:35 94 50 05/05/17 07:39 94 55 05/05/17 07:00 96 Mechanical Ventilator 55 05/05/17 06:00 95 05/05/17 04:30 97 60 05/05/17 04:00 98.8 99 24 148/87 (107) 97 05/05/17 04:00 99 05/05/17 04:00 60 05/05/17 02:00 99 05/05/17 00:00 113 05/05/17 00:00 60 05/05/17 00:00 99.2 113 27 144/82 (102) 96 05/04/17 22:00 123 05/04/17 20:39 96 60 05/04/17 20:00 99.6 108 30 145/75 (98) 93 05/04/17 20:00 108 05/04/17 20:00 60 05/04/17 19:00 100 Mechanical Ventilator 60 05/04/17 18:00 98 05/04/17 16:00 60 05/04/17 16:00 100.1 99 19 152/72 (98) 95 05/04/17 16:00 94 05/04/17 15:57 95 60 Ventilator settings: PRVC/AC 14 bpm / tidal volume 400 ml / FiO2 50% / PEEP 8 mm H2O I/O 05/04/17 05/04/17 05/04/17 05/05/17 05/05/17 05/05/17 07:00 15:00 23:00 07:00 15:00 23:00 Intake Total 2636 ml 450 ml 760 ml 1810 ml Output Total 400 ml 850 ml 500 ml Balance 2236 ml 450 ml -90 ml 1310 ml IV Total 1911 ml 450 ml 1183 ml Tube Feeding 575 ml 600 ml 567 ml Tube Irrigant 150 ml 160 ml 60 ml Output Urine Total 400 ml 850 ml 500 ml # Bowel Movements 1 0 1 (Chuy Camacho MD R1) Result Diagram: 05/05/17 0610 05/05/17609 Imaging Last Impressions Hip and Pelvis X-Ray 05/05/17 0000 Signed Impressions: Service Date/Time: Friday, May 05, 2017 10:59 - CONCLUSION: Left proximal femur trochanteric/subtrochanteric fracture lucency visualized. Postoperative changes. Choco Mustafa MD Abdomen X-Ray 05/05/17 0000 Signed Impressions: Service Date/Time: Friday, May 05, 2017 10:51 - CONCLUSION: Left femoral fracture lucency. Nonobstructive bowel gas pattern. Choco Mustafa MD Chest X-Ray 05/02/17 0600 Signed Impressions: Service Date/Time: Tuesday, May 02, 2017 04:02 - CONCLUSION: Increased airspace opacity bilaterally. The pattern may represent pulmonary edema. There is likely a left pleural effusion. Obdulio Sam MD Head CT 04/30/17 0000 Signed Impressions: Service Date/Time: Sunday, April 30, 2017 09:10 - CONCLUSION: Reduction in the midline shift from 14 to11 mm. Unchanged large left MCA territory infarction. Deangelo Wren Jr., MD Chest CT 04/30/17 0000 Signed Impressions: Service Date/Time: Sunday, April 30, 2017 09:20 - CONCLUSION: 1. Bilateral pulmonary infiltrates more pronounced within the lower lobes with tiny bilateral pleural effusions. Material seen filling the lower lobe bronchi bilaterally either related to purulent material or perhaps mucus plugging. Deangelo Wren Jr., MD Carotid Artery Ultrasound 04/24/17 0000 Signed Impressions: Service Date/Time: April 09:45 - CONCLUSION: 1. No hemodynamically significant carotid artery stenosis. Arnie Middleton MD Hip X-Ray 04/21/17 0000 Signed Impressions: Service Date/Time: Friday, April 21, 2017 11:36 - CONCLUSION: Fluoroscopic images during placement of intramedullary siomara left femur. Benja Ramsey MD Objective Remarks CONSTITUTIONAL/GEN: Nonverbal, lying in bed. Intubated, sedated, and on ventilator LUNGS: coarse breath sounds throughout, improved CARDIOVASCULAR: Regular rate and rhythm without murmur or gallop. GI/ABD: distended and tense without masses, without organomegaly. NEURO: Intubated and sedated with spontaneous eye opening. MUSC: Bandages on lateral left hip and thigh are clean dry and intact. SCDs on bilateral lower extremities. Pedal pulses weak. SKIN: cellulitis on bilateral UEs resolving Procedures ORIF 04/21/17 Intubation 04/30/17 Medications and IVs Current Medications Medications (Trade) Dose Ordered Sig/Zeferino Route Start Time Stop Time Status Last Admin (Tylenol) 650 mg Q6H PRN PO 04/20/17 14:30 05/03/17 00:27 (Zofran Inj) 4 mg Q6H PRN IV PUSH 04/20/17 15:00 04/30/17 02:28 (Morphine Inj) 1 mg Q3H PRN IV 04/20/17 17:15 04/28/17 18:15 (Morphine Inj) 2 mg Q3H PRN IV 04/20/17 17:15 04/30/17 02:29 (Narcan Inj) 0.4 mg UNSCH PRN IV 04/20/17 17:15 (Nalini-Colace) 1 tab BID PO 04/20/17 21:00 05/05/17 09:04 (Milk Of Magnyoly Liq) 30 ml Q12H PRN PO 04/20/17 20:30 (Senokot) 17.2 mg Q12H PRN PO 04/20/17 20:30 04/23/17 22:55 (Dulcolax Supp) 10 mg DAILY PRN RECTAL 04/20/17 20:30 (Oscal-D 250-125) 250 mg TID PO 04/21/17 13:00 05/05/17 13:57 ([place] 7.5-325 Mg) 1 tab Q3H PRN PO 04/21/17 11:45 05/03/17 20:17 (Vitamin D3) 5,000 units DAILY PO 04/22/17 09:00 05/05/17 09:04 (NS Flush) 2 ml BID IV FLUSH 04/24/17 21:00 05/05/17 09:00 (NS Flush) 2 ml UNSCH PRN IV FLUSH 04/24/17 09:30 (Glucagon Inj) 1 mg UNSCH PRN IM/SQ 04/24/17 18:15 (Aspirin) 325 mg DAILY DOBHOFF 04/27/17 09:00 05/05/17 09:04 (D50w (Syr) Inj) 25 ml UNSCH PRN IV 04/26/17 20:30 05/05/17 00:00 (Lopressor Inj) 5 mg Q5M PRN IV PUSH 04/27/17 04:00 05/03/17 18:26 Potassium Chloride 100 ml @ 50 mls/hr Q2H PRN IV 04/27/17 08:45 Potassium Chloride 100 ml @ 50 mls/hr Q2H PRN IV 04/27/17 08:45 04/27/17 16:44 (K-Lyte Cl Eff) 50 meq UNSCH PRN PO 04/27/17 08:45 Potassium Chloride 100 ml @ 25 mls/hr UNSCH PRN IV 04/27/17 08:45 05/04/17 19:07 Potassium Chloride 100 ml @ 50 mls/hr Q2H PRN IV 04/27/17 08:45 04/29/17 12:15 Magnesium Sulfate 4 gm/Sodium Chloride 100 ml @ 50 mls/hr UNSCH PRN IV 04/27/17 08:45 (Mag-Ox) 800 mg UNSCH PRN PO 04/27/17 08:45 Magnesium Sulfate 2 gm/Sodium Chloride 100 ml @ 50 mls/hr UNSCH PRN IV 04/27/17 08:45 (K-Phos) 2,000 mg Q4H PRN PO 04/27/17 08:45 04/28/17 15:38 Sodium Phosphate 30 mmol/Sodium Chloride 250 ml @ 42 mls/hr UNSCH PRN IV 04/27/17 08:45 04/27/17 23:59 (K-Phos) 2,000 mg UNSCH PRN PO/TUBE 04/27/17 08:45 Potassium Phosphate 30 mmol/ Sodium Chloride 260 ml @ 42 mls/hr UNSCH PRN IV 04/27/17 08:45 05/04/17 20:54 (Protonix Inj) 40 mg Q24H IV PUSH 04/28/17 17:00 05/04/17 16:05 (NovoLOG SUPPLEMENTAL SCALE) 1 ACHS SLIDING SCALE SQ 04/28/17 16:00 05/05/17 11:00 (Flagyl) 500 mg Q8HR DOBHOFF 04/29/17 14:00 05/05/17 13:57 (Duoneb Neb) 1 ampule Q4HR NEB PRN NEB 04/30/17 04:45 05/04/17 20:38 Micafungin Sodium 100 mg/Sodium Chloride 100 ml @ 100 mls/hr Q24H IV 04/30/17 09:00 05/05/17 09:04 (Lovenox Inj) 40 mg Q24H SQ 05/01/17 08:00 05/05/17 09:09 Lactated Ringer's 1,000 ml @ 75 mls/hr [id number] IV 05/02/17 13:00 05/05/17 08:39 Levofloxacin/ Dextrose 150 ml @ 100 mls/hr Q24H IV 05/04/17 09:00 05/05/17 10:54 (Duoneb Neb) 1 ampule Q6HR NEB NEB 05/05/17 10:00 05/05/17 13:42 (Levemir Inj) 10 units Q12H SQ 05/05/17 21:00 (Lactulose Liq) 30 ml DAILY PO 05/05/17 09:30 05/05/17 11:10 (Chuy Camacho MD R1) Urinary Catheter: Yes Assessment to: Continue Leavitt insert reason: Obstruction/Retention Date of Insertion: May 02, 2017 (Chuy Camacho MD R1) A/P Assessment and Plan 76 y/o female with HTN, DM, CVA admitted for DKA and hip fracture. Now with massive left MCA stroke, right hemiplegia and midline shift resolving. Neuro and nutritional services cook consulted. Working with palliative care and family for goals of care. -Overall poor prognosis, will pursue goals of care discussion with daughter Discharge Planning Pending stroke progression and discussion for goals of care (Chuy Camacho MD R1) Attending Attestation Patient seen and examined. Case reviewed and discussed Agree with plan of care as discussed with me and documented in the resident note. (Angélica Malik MD) Problem List: (1) Acute CVA (cerebrovascular accident) ICD Codes: I63.9 - Cerebral infarction, unspecified Status: Acute Plan: Patient found minimally responsive with neurological deficits around 0820 04/24. Stat CT of head was ordered, which showed large left MCA infarct. Diffuse edema throughout the left MCA distribution, suggest completed infarct. This was discussed and was not a candidate for intracranial intervention. CT (04/30): Reduction in midline shift to 11mm. Unchanged large left MCA infarction. Echocardiogram- The left ventricular systolic function is low normal with an estimated ejection fraction in the range of 50-55%. Mild concentric left ventricular hypertrophy. Normal left ventricular size. [id number] mitral valve regurgitation. Carotid Artery US- No hemodynamically significant carotid stenosis -Consulted nutritional services cook, appreciate recs -Intubated/sedated; does not recommend tracheostomy -IV hydration, watch for hypotension. -Keep systolic to less than 220 -Lactated Ringer's reduced to 75 ml/hr -If there is no reasonable improvement by Friday will recommend pursuing comfort measures only, will reevaluate at that time -Neurosurgery consulted -Recommended conservative management -Keep Na in low to mid 150 range -Tube feeds: Glucerna 1.5 mLs for diet via Dobbhoff tube -Computer Specialist consult for management and recs -Consult palliative care-appreciate recs -Case discussed with daughter in-person about goals of care, limited treatment options, and poor prognosis. -Daughter continues to want aggressive care. Wishes to allow the to reevaluate patient's medical condition -Neurology consulted-appreciate recs -Rectal ASA -Lovenox 40mg daily (2) Sepsis ICD Codes: A41.9 - Sepsis, unspecified organism Status: Acute Plan: Pt meets SIRS criteria 04/30: WBC elevated to 20.7. HR up to 122. RR 20. Febrile to 101.3 Source of infection, likely pulmonary vs urinary -See antibiotics as below -Culture results as below -Monitor vitals (3) HCAP (healthcare-associated pneumonia) ICD Codes: J18.9 - Pneumonia, unspecified organism Status: Acute Plan: Chest CT (04/30): Bilateral pulmonary infiltrates more pronounced within lower lobes with b/l pleural effusions. Material in lower lobe bronchi b/l, purulent or mucus plugging CXR 05/02: Increased airspace opacity bilaterally. The pattern may represent pulmonary edema. There is likely a left pleural effusion. Suspect possible HCAP. Slightly decreased leukocytosis at 20.6 on 05/05 and afebrile. Possible aspiration -Levaquin IV (05/04- ) HCAP -Flagyl 500mg q8H (04/29 - ) for aspiration -Discontinued Cefepime 2g IV daily (04/30 - d/c 05/04 ) -Discontinued Vancomycin IV (04/30 - d/c 05/04 ) -Legionella and strep pneumo urine tests negative -Sputum culture showing staph aureus and Serratia Marcescens -Repeat blood cultures, with 1/4 positive; possible contaminant (4) Yeast UTI ICD Codes: B37.49 - Other urogenital candidiasis Status: Acute Plan: UA showed glucose, large number of leukocytes esterase, innumerable WBCs , rare bacteria, and few yeast Urine culture shows Lea Glabrata -Continue Micafungin 100mg IV daily (5) Type 2 diabetes mellitus ICD Codes: E11.9 - Type 2 diabetes mellitus without complications Status: Chronic Plan: Admitted for DKA which has now resolved. Hemoglobin A1C is 12.9. Diabetes is uncontrolled. -Per Dr Pedraza, decreased Levemir to Levemir 10 units BID -Medium dose insulin sliding scale with goal blood glucose between 140 and 180 -Glucerna for NG tube feedings -Regular accuchecks q4H -LR IVF @ 75 ml/hr as above (6) Atrial fibrillation ICD Codes: I48.91 - Unspecified atrial fibrillation Status: Acute Plan: Hx of intermittent Afib. Resolved with administration of Lopressor. -Continue to monitor -Lopressor PRN (7) Hip fracture ICD Codes: S72.009A - Fracture of unspecified part of neck of unspecified femur , initial encounter for closed fracture Status: Acute Plan: S/P left hip reduction and intramedullary nail fixation on 04-21-17 -Consult orthopedics-appreciate recs * Cleared for discharge to rehabilitation * WBAT * Daily dressing changes * CM for rehabilitation placement * Follow-up in 2 weeks -Calcium/Vitamin D -Fluids as above -Tylenol, morphine PRN pain (8) Hypertension ICD Codes: I10 - Essential (primary) hypertension Status: Acute Plan: IV hydration. BPs labile -Continue fluids as above -Antihypertensives to keep SBP<180 (9) Fluids, Electrolytes, and Nutrition Status: Acute Plan: Fluids: IVF as above Electrolyte: on electrolyte protocol Nutrition: Glucerna tube feeds DVT ppx: SCDs/lovenox as above GI ppx: protonix (Chuy Camacho MD R1) Problem Qualifiers (1) Sepsis: Qualified Codes: A41.9 - Sepsis, unspecified organism (2) Type 2 diabetes mellitus: Qualified Codes: E11.9 - Type 2 diabetes mellitus without complications (3) Atrial fibrillation: Qualified Codes: I48.0 - Paroxysmal atrial fibrillation (4) Hip fracture: (5) Hypertension: Qualified Codes: I10 - Essential (primary) hypertension Chuy Camacho MD R1 May 05, 2017 14:41 Angélica Malik MD May 05, 2017 16:27
--- NOTE | 2017-05-05 16:08 | HHI.HCPN ---
Reason for visit a. To assist with evaluation and management of symptoms including: Debility and pain. b. To assist medical decision maker(s) with: better understanding of current medical conditions; weighing benefits/burdens of medical treatment options; making medical treatment decisions. . Subjective/Interval History Mrs. Hein date a 76-year-old female with a past medical history of hypertension , diabetes mellitus and CVA who presented to the ED on 04/20/17 via EMS for evaluation of after a fall. Upon ED admission, random glucose 559. Patient underwent Left hip reduction and intramedullary nail fixation on 04/21/17. Clinical course complicated by large left MCA infarct with diffuse edema throughout the left MCA distribution. Neurology, Dr. Malave consulted. Patient not a candidate for intervention, not a candidate for IV TPA. As per neurology "Christina 4Id the prognosis with a stroke of the size is poor". Palliative care consulted for further clarifications of goals of care given poor prognosis. Patient remains in ICU, intubated on mechanical ventilation. Unresponsive to verbal or tactile stimuli during my visit, off sedation. No improvement in neurological status. After being noted more distended today, KUB revealing nonobstructive bowel gas pattern. Hip and pelvis x-ray revealing postoperative changes. Laboratory workup today revealing persistent leukocytosis 20.6, Hgb 8.1, platelet count 393. Sodium 150, potassium 5.0, BUN/creatinine 38/0.36. Albumin 0.9. Patient afebrile today, max temp 100.5 yesterday. Hypertensive with SBP in the 140s to 150s. Remains on FiO2 50%, oxygen saturation in the mid to high 90s. Overall poor prognosis for long-term survival. Bedside conversation with daughter Trice. Medical update provided. Daughter reports that patient is more alert, verbalized that patient has been watching TV and intermittently following commands. Discussed with daughter that this has not been witnessed by bedside RN today nor palliative care. Patient unresponsive during previous palliative care visit, currently obtunded. Opening eyes but not tracking or following any commands. Facial grimacing noted. Shared concerns regarding patient's unchanged neurological condition secondary to large CVA, complications to include pneumonia and sepsis, multiple ongoing chronic issues, malnutrition with albumin 0.9 and physical deconditioning. Discussed concerns of patient's likely inability to medically extubate given the above. Discussed the tracheostomy and PEG tube is not recommended given the above, very poor prognosis for meaningful recovery. Daughter wishing to continue aggressive management at this time to include full code. She is receptive to medical updates by green chain operator. . Family/friend interactions See interval note. . Advance Directives Living Will: Never completed Health Care Surrogate: Never completed Durable Power of Sparmaker: Never completed Advance Directive Specifics Health Care Surrogate(s): No advance directives completed. As per [place] statute, healthcare proxy decision making falls to patient's only daughter Norma Salvador. . Documented care wishes: No living will completed. . Significant change in goals: Goals of care remain unchanged. Objective Vital Signs Date Time Temp Pulse Resp B/P (MAP) Pulse Ox O2 Delivery O2 Flow Rate FiO2 05/05/17 11:35 94 50 05/05/17 07:39 94 55 05/05/17 07:00 96 Mechanical Ventilator 55 05/05/17 06:00 95 05/05/17 04:30 97 60 05/05/17 04:00 98.8 99 24 148/87 (107) 97 05/05/17 04:00 99 05/05/17 04:00 60 05/05/17 02:00 99 05/05/17 00:00 113 05/05/17 00:00 60 05/05/17 00:00 99.2 113 27 144/82 (102) 96 05/04/17 22:00 123 05/04/17 20:39 96 60 05/04/17 20:00 99.6 108 30 145/75 (98) 93 05/04/17 20:00 108 05/04/17 20:00 60 05/04/17 19:00 100 Mechanical Ventilator 60 05/04/17 18:00 98 Intake & Output 05/05/17 05/05/17 06:59 18:59 Intake Total 1810 ml Output Total 500 ml Balance 1310 ml IV Total 1183 ml Tube Feeding 567 ml Tube Irrigant 60 ml Output Urine Total 500 ml # Bowel Movements 1 Physical Exam CONSTITUTIONAL/GENERAL: This is an elderly female resting in bed. Unresponsive to verbal or tactile stimuli. Orally intubated on mechanical ventilation. Not sedated. TUBES/LINES/DRAINS: PIV's. Dobbhoff to right nare. ETT, Leavitt catheter, left soft wrist restraint. SKIN: No jaundice, rashes, or lesions. Ecchymoses on upper extremities. Skin temperature appropriate. Not diaphoretic. Surgical incision to left hip, covered in dressing. Dressing dry and intact. HEAD: Atraumatic. Normocephalic. EYES: Pupils equal and round and reactive. No scleral icterus. No injection or drainage. ENT: Unable to evaluate hearing secondary to clinical condition. Nose without bleeding or purulent drainage. Moist oral mucosa. Dobbhoff to right nare. NECK: Trachea midline. Supple. CARDIOVASCULAR: Regular rate and rhythm. Peripheral pulses symmetric. RESPIRATORY/CHEST: Symmetric, orally intubated on mechanical ventilation. Coarse bilaterally. GASTROINTESTINAL: Abdomen soft, round, mildly distended. Bowel sounds present. GENITOURINARY: Without palpable bladder distension. MUSCULOSKELETAL: Extremities without clubbing, cyanosis. Worsening edema to all 4 extremities. NEUROLOGICAL: Unresponsive to verbal or tactile stimuli. Not sedated. PSYCHIATRIC: Unable to evaluate secondary to clinical condition. . Diagnostic Tests Laboratory Laboratory Tests Test 05/03/17 05:03 05/04/17 09:42 05/04/17 19:37 05/05/17 06:10 White Blood Count 22.8 TH/MM3 (4.0-11.0) 21.4 TH/MM3 (4.0-11.0) 20.6 TH/MM3 (4.0-11.0) Red Blood Count 2.64 MIL/MM3 (4.00-5.30) 2.63 MIL/MM3 (4.00-5.30) 2.66 MIL/MM3 (4.00-5.30) Hemoglobin 8.1 GM/DL (11.6-15.3) 8.2 GM/DL (11.6-15.3) 8.1 GM/DL (11.6-15.3) Hematocrit 25.9 % (35.0-46.0) 25.6 % (35.0-46.0) 25.1 % (35.0-46.0) Mean Corpuscular Volume 98.1 FL (80.0-100.0) 97.3 FL (80.0-100.0) 94.4 FL (80.0-100.0) Mean Corpuscular Hemoglobin 30.6 PG (27.0-34.0) 31.1 PG (27.0-34.0) 30.6 PG (27.0-34.0) Mean Corpuscular Hemoglobin Concent 31.2 % (32.0-36.0) 32.0 % (32.0-36.0) 32.4 % (32.0-36.0) Red Cell Distribution Width 15.0 % (11.6-17.2) 14.5 % (11.6-17.2) 14.4 % (11.6-17.2) Platelet Count 399 TH/MM3 (150-450) 422 TH/MM3 (150-450) 393 TH/MM3 (150-450) Mean Platelet Volume 9.7 FL (7.0-11.0) 9.8 FL (7.0-11.0) 10.5 FL (7.0-11.0) Neutrophils (%) (Auto) 89.7 % (16.0-70.0) 90.6 % (16.0-70.0) 88.1 % (16.0-70.0) Lymphocytes (%) (Auto) 5.8 % (9.0-44.0) 5.3 % (9.0-44.0) 7.6 % (9.0-44.0) Monocytes (%) (Auto) 3.5 % (0.0-8.0) 3.1 % (0.0-8.0) 3.1 % (0.0-8.0) Eosinophils (%) (Auto) 0.6 % (0.0-4.0) 0.6 % (0.0-4.0) 0.4 % (0.0-4.0) Basophils (%) (Auto) 0.4 % (0.0-2.0) 0.4 % (0.0-2.0) 0.8 % (0.0-2.0) Neutrophils # (Auto) 20.5 TH/MM3 (1.8-7.7) 19.4 TH/MM3 (1.8-7.7) 18.2 TH/MM3 (1.8-7.7) Lymphocytes # (Auto) 1.3 TH/MM3 (1.0-4.8) 1.1 TH/MM3 (1.0-4.8) 1.6 TH/MM3 (1.0-4.8) Monocytes # (Auto) 0.8 TH/MM3 (0-0.9) 0.7 TH/MM3 (0-0.9) 0.6 TH/MM3 (0-0.9) Eosinophils # (Auto) 0.1 TH/MM3 (0-0.4) 0.1 TH/MM3 (0-0.4) 0.1 TH/MM3 (0-0.4) Basophils # (Auto) 0.1 TH/MM3 (0-0.2) 0.1 TH/MM3 (0-0.2) 0.2 TH/MM3 (0-0.2) CBC Comment AUTO DIFF AUTO DIFF AUTO DIFF Differential Total Cells Counted 100 100 100 Neutrophils % (Manual) 70 % (16-70) 55 % (16-70) 72 % (16-70) Band Neutrophils % 18 % (0-6) 35 % (0-6) 16 % (0-6) Lymphocytes % 6 % (9-44) 1 % (9-44) 7 % (9-44) Monocytes % 1 % (0-8) 7 % (0-8) 1 % (0-8) Neutrophils # (Manual) 21.2 TH/MM3 (1.8-7.7) 19.7 TH/MM3 (1.8-7.7) 18.7 TH/MM3 (1.8-7.7) Myelocytes 4 % (0-0) 2 % (0-0) Promyelocytes 1 % (0-0) Nucleated Red Blood Cells 1 /100 WBC (0-0) 1 /100 WBC (0-0) 2 /100 WBC (0-0) Differential Comment FINAL DIFF MANUAL FINAL DIFF MANUAL FINAL DIFF MANUAL Platelet Estimate NORMAL (NORMAL) NORMAL (NORMAL) NORMAL (NORMAL) Platelet Morphology Comment NORMAL (NORMAL) NORMAL (NORMAL) ENLARGED (NORMAL) Blood Urea Nitrogen 41 MG/DL (7-18) 40 MG/DL (7-18) 38 MG/DL (7-18) Creatinine 0.62 MG/DL (0.50-1.00) 0.46 MG/DL (0.50-1.00) 0.36 MG/DL (0.50-1.00) Random Glucose 155 MG/DL (74-106) 101 MG/DL (74-106) 95 MG/DL (74-106) Total Protein 5.7 GM/DL (6.4-8.2) 5.6 GM/DL (6.4-8.2) 4.0 GM/DL (6.4-8.2) Albumin 1.1 GM/DL (3.4-5.0) 1.0 GM/DL (3.4-5.0) 0.9 GM/DL (3.4-5.0) Calcium Level 8.3 MG/DL (8.5-10.1) 8.1 MG/DL (8.5-10.1) 7.2 MG/DL (8.5-10.1) Magnesium Level 2.3 MG/DL (1.5-2.5) 2.2 MG/DL (1.5-2.5) 2.1 MG/DL (1.5-2.5) Alkaline Phosphatase 563 U/L (45-117) 807 U/L (45-117) 859 U/L (45-117) Aspartate Amino Transf (AST/SGOT) 70 U/L (15-37) 84 U/L (15-37) 111 U/L (15-37) Alanine Aminotransferase (ALT/SGPT) 36 U/L (10-53) 41 U/L (10-53) 42 U/L (10-53) Total Bilirubin 0.6 MG/DL (0.2-1.0) 0.5 MG/DL (0.2-1.0) 0.6 MG/DL (0.2-1.0) Sodium Level 157 MEQ/L (136-145) 151 MEQ/L (136-145) 150 MEQ/L (136-145) Potassium Level 3.8 MEQ/L (3.5-5.1) 3.6 MEQ/L (3.5-5.1) 3.6 MEQ/L (3.5-5.1) 5.0 MEQ/L (3.5-5.1) Chloride Level 120 MEQ/L (98-107) 116 MEQ/L (98-107) 115 MEQ/L (98-107) Carbon Dioxide Level 28.9 MEQ/L (21.0-32.0) 28.6 MEQ/L (21.0-32.0) 26.7 MEQ/L (21.0-32.0) Anion Gap 8 MEQ/L (5-15) 6 MEQ/L (5-15) 8 MEQ/L (5-15) Estimat Glomerular Filtration Rate 94 ML/MIN (>89) 133 ML/MIN (>89) 176 ML/MIN (>89) Vancomycin Level Trough 22.8 MCG/ML (5.0-10.0) 23.8 MCG/ML (5.0-10.0) Metamyelocytes 2 % (0-1) 1 % (0-1) Phosphorus Level 1.4 MG/DL (2.5-4.9) 1.0 MG/DL (2.5-4.9) 2.7 MG/DL (2.5-4.9) Eosinophils % 1 % (0-4) Red Cell Morphology Comment NORMAL (NORMAL) Hematology Comments Protein Corrected Calcium 9.0 MG/DL (8.5-10.1) Result Diagram: 05/05/17 0610 05/05/17 0610 Microbiology Microbiology Date/Time Source Procedure Growth Status 05/03/17 13:55 Urine Catheterized Urine Legionella Antigen - Final PRESUMPTIVE NEGATIVE FOR LEGIONELLA P... Complete 05/03/17 13:55 Urine Catheterized Urine Streptococcus pneumoniae Antigen (M - Final PRESUMPTIVE NEGATIVE FOR STREPTOCOCCU... Complete Imaging Last 48 hours Impressions Hip and Pelvis X-Ray 05/05/17 0000 Signed Impressions: Service Date/Time: Friday, May 05, 2017 10:59 - CONCLUSION: Left proximal femur trochanteric/subtrochanteric fracture lucency visualized. Postoperative changes. Choco Mustafa MD Abdomen X-Ray 05/05/17 0000 Signed Impressions: Service Date/Time: Friday, May 05, 2017 10:51 - CONCLUSION: Left femoral fracture lucency. Nonobstructive bowel gas pattern. Choco Mustafa MD Procedures * 04/30/17 -endotracheal intubation * 04/21/17 -Left hip reduction and intramedullary nail fixation . Assessment and Plan Disease Oriented Problem List: (1) Acute respiratory failure (2) Acute CVA (cerebrovascular accident) (3) Pneumonia (4) Atrial fibrillation with RVR (5) Hypertension (6) Hip fracture Symptom Scale: (1) Pain 0-10 Scale: Unable to quantify Comment: Secondary to recent surgical intervention (2) Debility 0-10 Scale: Unable to quantify Comment: Progressive. (3) Shortness of breath 0-10 Scale: Unable to quantify Comment: Increased oxygen requirement. Currently on nonrebreather mask at 15 L. Pertinent Non-Medical Issues Psychosocial: Patient is originally from [place]. Residing in [place] up until 2013 she moved to [place] to live with only daughter Trice. Patient is a , in 2006. Spiritual: No shinto affiliation. Legal: No advance directives completed. Ethical issues impacting care: Patient unable to participating in medical decision-making secondary to clinical condition. Patient's daughter acting as healthcare proxy decision maker. . Important Contacts Daughter Norma Salvador . . Prognosis Mrs. Hein needs a 76-year-old female with a past medical history of hypertension, diabetes mellitus and prior CVA. Presented with left hip fracture , underwent ORIF. Clinical course complicated by large left MCA infarct with edema. Overall prognosis is poor for a meaningful neurological recovery or long -term survival given acute stroke, chronic ongoing comorbidities and advanced age. Patient appears hospice appropriate should family elects comfort-directed care. . Code Status: Full Code Plan * CODE STATUS: FULL CODE. * HEALTHCARE DECISION-MAKING: Patient unable to participate in medical decision- making secondary to clinical condition, minimally responsive post CVA. No advance directives completed, patient is . As per [place] statute, healthcare proxy decision-making falls to patient's only daughter Trice Salvador. * GOALS OF CARE: 05/05/17 -daughter electing to continue aggressive management to include full code. * Bedside conversation with abbey Carnes. Medical update provided. Daughter reports that patient is more alert, verbalized that patient has been watching TV and intermittently following commands. Discussed with daughter that this has not been witnessed by bedside RN today nor palliative care. Patient unresponsive during earlier palliative care visit, currently obtunded. Opening eyes but not tracking or following any commands. Facial grimacing noted. Shared concerns regarding patient's unchanged neurological condition secondary to large CVA, complications to include pneumonia and sepsis, multiple ongoing chronic issues, malnutrition with albumin 0.9 and physical deconditioning. Discussed concerns of patient's likely inability to medically extubate given the above. Discussed the tracheostomy and PEG tube is not recommended given the above, very poor prognosis for meaningful recovery. Daughter wishing to continue aggressive management at this time to include full code. She is receptive to medical updates by green chain operator. * SYMPTOMS: = Shortness of breath, multifactorial. Secondary to altered mental status/CVA, pneumonia, lethargy. Intubated and placed on mechanical ventilation. = Pain, secondary to recent surgical intervention. Morphine IV available as needed. = Debility, progressive. Likely to continue to worsen given recent acute stroke. * Palliative care contact information has been provided to patient's daughter. * Palliative care will continue to follow-up for further clarifications of goals of care as patient's clinical condition continues to evolve. . Time Spent Total Floor Time (mins): 26 (Total time to include review medical records, physical exam, goals of care conversation with patient's daughter and case discussion with bedside RN Arnie. ) >50% Counseling/Coord of Care: Yes Attestation To help prompt me to consider important information that might be impacting today's encounter and assessment, information from prior notes written by myself or my colleagues may have been "brought forward" into today's note. My signature on this note, however, is an attestation that I personally performed the exam, history, and/or decision-making noted today, and, unless otherwise indicated, the interactions with patient, family, and staff as well as the review of records all occurred today. I also attest that the listed assessment and stated plan reflect my best clinical judgment today based on the combination of historical information, prior notes, and today's exam/ interactions. When time spent is documented, it refers only to time spent today by the signer, or if indicated, combined time spent today by collaborating physician/nurse practitioner. Ashly Steven May 05, 2017 16:08
[2017-05-05] MEDS: PANTOPRAZOLE SODIUM 40 MG VIAL IV PUSH SCH (16:46)
--- NOTE | 2017-05-05 20:11 | EKG ---
Date Performed: 05/04/2017 Time Performed: 18:52:46 PTAGE: 76 years EKG: Probable atrial fibrillation with rapid ventricular response with PVC(s). Possible anterose ptal infarct - age undetermined Inferior/lateral ST-T changes may be due to myocardial ischemia Low Q RS voltages in precordial leads Abnormal ECG NO PREVIOUS TRACING DOCTOR: Marcel Nguyen Interpretating Date/Time 05/05/2017 20:06:49
[2017-05-05] MEDS: INSULIN DETEMIR 100 UNITS/ML VIAL SQ SCH (21:37)
[2017-05-06] VITALS (17 sets, daily range): BP systolic 112–141; BP diastolic 56–77; PULSE 84–110; RESP 14–26; TEMP 98–99; O2SAT 93–100
[2017-05-06] MEDS: LACTATED RINGER'S 1000 ML INJ 1,000 ML IV SCH ×2 (02:34→13:04)
[2017-05-06] MEDS: RESP: ALBUTEROL 2.5 MG/IPRATROPIUM 0.5 MG NEB (SCH) NEB ×4 (02:44→20:00)
--- NOTE | 2017-05-06 04:34 | RADRPT ---
EXAM DATE/TIME: 05/06/2017 04:18 [facility] COMPARISON: CT BRAIN W/O CONTRAST, April 30, 2017, 9:10. INDICATIONS : Follow up stroke. RADIATION DOSE: 56.35 CTDIvol (mGy) MEDICAL HISTORY : Hypertension. Diabetes. SURGICAL HISTORY : None. ENCOUNTER: Subsequent ACUITY: 2 weeks PAIN SCALE: Non-responsive LOCATION: Bilateral cranial TECHNIQUE: Multiple contiguous axial images were obtained of the head. Using automated exposure control and adj ustment of the mA and/or kV according to patient size, radiation dose was kept as low as reasonably a chievable to obtain optimal diagnostic quality images. DICOM format image data is available electro nically for review and comparison. FINDINGS: Redemonstration of evolving large left-sided MCA territory infarct with associated edema and left-to- right subfalcine shift measuring approximately 12 mm slightly improved from prior exam. Effacement of the left lateral ventricle. Patent basilar cisterns. No significant intercurrent hemorrhage. Remaind er the exam is unchanged. CONCLUSION: 1. Evolving large left-sided MCA territory infarct with minimally improved [id number] subfalcine s hift. 2. No intercurrent hemorrhage or other acute abnormality. Alejo De La Vega MD on May 06, 2017 at 4:29 Board Certified Radiologist. This report was verified electronically.
[2017-05-06 05:29] LABS: AUTOMATED NEUTROPHIL # 20.1 TH/MM3 (1.8-7.7); BASOPHIL % 0.2 % (0.0-2.0); EOSINOPHIL # 0.1 TH/MM3 (0-0.4); EOSINOPHIL % 0.4 % (0.0-4.0); HEMATOCRIT 26.5 % (35.0-46.0); HEMOGLOBIN 8.6 GM/DL (11.6-15.3); LYMPH % 6.3 % (9.0-44.0); LYMPHOCYTE # 1.4 TH/MM3 (1.0-4.8); MEAN CELL VOLUME 96.9 FL (80.0-100.0); MEAN CORPUSCULAR HEMOGLOBIN 31.5 PG (27.0-34.0); MEAN CORPUSCULAR HGB CONC 32.5 % (32.0-36.0); MEAN PLATELET VOLUME 9.8 FL (7.0-11.0); MONO % 2.3 % (0.0-8.0); MONOCYTE # 0.5 TH/MM3 (0-0.9); NEUT % 90.8 % (16.0-70.0); PLATELET COUNT 475 TH/MM3 (150-450); RED BLOOD COUNT 2.73 MIL/MM3 (4.00-5.30); RED CELL DISTRIBUTION WIDTH 14.8 % (11.6-17.2); WHITE BLOOD COUNT 22.1 TH/MM3 (4.0-11.0)
[2017-05-06] MEDS ORDERED: PHARMACY ORDERED LAB ONE (05:45)
[2017-05-06] MEDS: metroNIDAZOLE 500 MG TAB DOBHOFF SCH ×3 (06:00→21:11)
[2017-05-06 06:10] LABS: BLOOD UREA NITROGEN 42 MG/DL (7-18); CREATININE 0.47 MG/DL (0.50-1.00); GLOMERULAR FILTRATION RATE 130 ML/MIN (>89); GLUCOSE,RANDOM 192 MG/DL (74-106); TOTAL PROTEIN 5.8 GM/DL (6.4-8.2)
[2017-05-06 06:12] LABS: ALKALINE PHOSPHATASE 1092 U/L (45-117); ALT (GPT) 43 U/L (10-53); AST (GOT) 82 U/L (15-37); BICARBONATE 29.3 MEQ/L (21.0-32.0); CHLORIDE 110 MEQ/L (98-107); SODIUM (NA) 147 MEQ/L (136-145); TOTAL BILIRUBIN ADULT 0.5 MG/DL (0.2-1.0)
[2017-05-06] MEDS: INSULIN ASPART SUPPLEMENTAL SCALE SQ SCH ×4 (06:43→20:50)
--- NOTE | 2017-05-06 07:38 | HHI.CCPN ---
Subjective Remarks/Hospital Course 04/24: 76-year-old female with a medical history significant for prior stroke, diabetes mellitus who was admitted with DKA and a hip fracture for which she underwent ORIF on 04/21. Patient developed altered mental status and was last noted to be okay around 5:30 AM. Subsequently there was a change in her mental status and she was noted to not be moving her right side for which stroke alert was called. Head CT showed large left MCA territory ischemic infarct with edema. Patient was transferred to the ICU by family medicine service in the critical care consult was requested. I evaluated the patient following arrival to the ICU. At that time she was laying in bed with her eyes open however not following commands and had a dense right hemiplegia. Patient was also evaluated by Dr. Malave from neurology. I further discussed current event with patient's daughter following her arrival to the ICU. Per the daughter patient has been living with her since her stroke in 2014 and does ambulate however has been having problems with memory and incontinence as well as gait difficulties. She does not feel patient would want intubation or tracheostomy or PEG tube. 04/25: Patient remains encephalopathic, awake though not following commands consistently. Dense right hemiplegia persists. Appears to be awake enough to protect airway currently. Patient's daughter rescinded DNR and made a full code last evening. 04/26: Remains encephalopathic, not following commands. On Dobbhoff for tube feeds at 30 cc per hour. Had urinary retention and drained 2 L of urine after placing Leavitt catheter today. CT head done this morning with large left MCA territory infarct with left to right midline shift and significant cerebral edema. Hyperglycemia noted. Patient given mannitol earlier for increasing cerebral edema. 04/27: Remains encephalopathic, not following commands. On Dobbhoff tube feeds at 30 cc per hour. When into A. fib with RVR last night which responded with Lopressor 5 mg IV 1 dose. 04/28: Remains encephalopathic, arousable, not following commands. Moves left upper extremity spontaneously. Tolerating Dobbhoff tube feeds. Remains on nasal cannula. 04/29: Encephalopathic, eyes be arousable, moves left upper extremity spontaneously and occasionally opens eyes. Dense right hemiplegia and aphasia persists. On nasal cannula. Dobbhoff tube feeds being advanced. Patient was transfused 1 unit PRBCs yesterday. Urine culture with yeast from yesterday for which fluconazole being started. Had brief run of A. fib with RVR which improved with Lopressor IV, currently in sinus rhythm. 04/30: Worsening hypoxemic respiratory failure, currently on partial nonrebreather. Remains lethargic. WBC count increased from 14.6 today 20.7. Chest x-ray shows bilateral worsening infiltrates and small pleural effusions. Sodium 154, weight up by 8 KG. Albumin 1 mg Bumex 1. Also one dose of albumin. Remains in sinus tachycardia. Tmax 101.3 05/01: Patient was intubated yesterday for lack of airway protection, and severe hypoxemic respiratory failure from aspiration pneumonia involving multiple lobes. Patient is on the vent lethargic, no spontaneous eye opening. Chest x- ray remains unchanged. Remains intermittently febrile Tmax 101.3. WBC count improving 05/02: Remains critically ill with no improvement in mental status. Spiking fever of 101.7. Blood culture and sputum culture with staph aureus sputum also growing GNR, WBC count 22,000 now indicating worsening sepsis. Daughter still requesting aggressive care. Palliative care is following 05/03: S/P large area dominant hemisphere CVA. No neurological improvement. Now with pneumonia (infiltrate, fever, leukocytosis) and appropriate abx coverage. She will have a hard time surviving the hip fx, CVA, and pneumonia. Palliative Care needs to be a mainstay of our plan. 05/04: No improvement in neuro status. Sputum C&S allows us to narrow abx coverage to levaquin alone. Lungs remain quite congested. Enteral nutrition tolerated. 05/05: No improvement in neuro status. Moves left arm spontaneously. Flaccid right side. Unresponsive. Persistent mild hypoglycemia - will cut levemir 50%. Abdomen more distended, check KUB. 05/06: CT head with massive left MCA infarction and > 1 cm shift in right handed woman. She opens eyes, does not track. Objective Vital Signs Date Time Temp Pulse Resp B/P (MAP) Pulse Ox O2 Delivery O2 Flow Rate FiO2 05/06/17 06:00 95 05/06/17 04:15 99 05/06/17 04:00 98.3 26 112/68 (83) 05/06/17 04:00 50 05/05/17 19:00 Mechanical Ventilator Intake and Output 05/06/17 05/06/17 05/07/17 08:00 16:00 00:00 Intake Total 945 ml Output Total 300 ml Balance 645 ml Result Diagram: 05/06/17 0449 05/06/17 0449 Other Results Microbiology Date/Time Source Procedure Growth Status 05/03/17 13:55 Urine Catheterized Urine Legionella Antigen - Final PRESUMPTIVE NEGATIVE FOR LEGIONELLA P... Complete 05/03/17 13:55 Urine Catheterized Urine Streptococcus pneumoniae Antigen (M - Final PRESUMPTIVE NEGATIVE FOR STREPTOCOCCU... Complete Imaging Last Impressions Head CT 04/24/17 0000 Signed Impressions: Service Date/Time: April 08:42 - CONCLUSION: 1. There is a large left MCA infarct. There is edema diffusely throughout the left MCA distribution. This would suggest completed infarct. The case was discussed with Dr. Ross. We did not feel the patient was a candidate for intracranial intervention due to the completed appearance of the infarct. 2. There is an old , encephalomalacic infarct involving the watershed distribution posteriorly on the left. Arnie Middleton MD Carotid Artery Ultrasound 04/24/17 0000 Signed Impressions: Service Date/Time: April 09:45 - CONCLUSION: 1. No hemodynamically significant carotid artery stenosis. Arnie Middleton MD Chest X-Ray 04/23/17 0000 Signed Impressions: Service Date/Time: Sunday, April 23, 2017 08:43 - CONCLUSION: Mild chronic interstitial changes. No acute abnormality. Deangelo Wren Jr., MD Hip X-Ray 04/21/17 0000 Signed Impressions: Service Date/Time: Friday, April 21, 2017 11:36 - CONCLUSION: Fluoroscopic images during placement of intramedullary siomara left femur. Benja Ramsey MD Hip and Pelvis X-Ray 04/20/17 0946 Signed Impressions: Service Date/Time: Thursday, April 20, 2017 10:36 - CONCLUSION: Mildly displaced intertrochanteric fracture. Benja Ramsey MD Objective Remarks Gen: Elderly female, lethargic, intubated not on sedation. HEENT: Pallor present. Moderate dark ET tube secretions Neck: No JVD, orally intubated. Chest/pulmonary:Air entry equal bilaterally, continued diffuse bilateral course rhonchi. Cardiovascular: S1-S2 regular, sinus tachycardia no gallop or murmur GI/abdomen: Soft, nontender, bowel sounds present. No guarding. Extremities: Warm bilaterally, no edema. Incision sites over left hip, thigh ORIF site clean dry and intact. No fluctuation or induration Neuro: Intubated on no sedation. Spontaneous eye opening, stares to left, does not track. Dense right hemiplegia noted. Localizes with left upper extremity, Withdraws LLE. No change. Pupils 2 mm, react. Date of Insertion: May 02, 2017 A/P Assessment and Plan Assessment: Large left MCA territory ischemic infarct Cerebral edema with midline shift Acute Encephalopathy Acute hypoxemic respiratory failure Severe sepsis HCAP/Suspected aspiration (staph aureus/Serratia) Staph aureus bacteremia Fungal UTI Right hemiplegia Left Hip fracture status post ORIF (04/21) Diabetes mellitus Prior stroke Urinary retention Plan: Neuro: Follow neuro status closely. Continue Aspirin Patient was not a candidate for thrombolysis per discussion with neurology and radiology. Repeat head CT 04/30 showed slight improvement in the midline shift and mass effect Neurosurgery consulted 04/30- Dr. López, recommended conservative management Mannitol 12.5 g IV every 6 hourly for cerebral edema, hold for ser osm >310. Follow serial osmolality. Na154, target 145-150 Maintenance with LR as Na remains excessively elevated Taper LR. Cardiovascular: IV hydration, watch for hypotension. Antihypertensives to keep systolic blood pressure less than to 180 mmHg Pulmonary: Intubated on 04/30/17 for worsening hypoxemic respiratory failure, aspiration pneumonia Chest x-ray shows increasing bilateral infiltrates and increasing white count secondary to worsening sepsis, sputum culture with staph aureus and Serratia CT of the chest 04/30/17 showed severe bibasilar consolidation, and evidence of aspiration Overall prognosis very poor for meaningful recovery, do not recommend tracheostomy GI/liver: Dobbhoff for tube feedings and medications. Having BM Abdomen distended today, check KUB 05/05 Endocrine: Insulin sliding scale.Reduce Levemir 10 U q12hr due to hypoglycemia requiring D50W /renal: Strict intake output, monitor and replete electrolytes, follow BUN/creatinine. Leavitt catheter placed for urinary retention on 04/26. Change today due to fungal UTI Heme: Follow CBC and coags. ID: Convert to iv levaquin 05/04 Urine culture 04/26/17 sofie glabrata Blood culture 04/29/17 1 out of 4 bottles staph aureus Sputum culture 04/30/17 staph aureus and Serratia. Prophylaxis: SCDs. Lovenox 40 mg sq daily-cleared by Dr. Malave Extensive discussion with daughter on 04/30/17, and I explained poor prognosis due to massive stroke. I explained her lack of airway protection and need for endotracheal intubation and mechanical ventilation which she agreed. However due to the massive nature of stroke. There is no reasonable improvement in the next few days I do not recommend tracheostomy and at that time I would recommend pursuing comfort measures only. Daughter wish to continue full CODE STATUS at this time. Being followed by palliative care team. Will re evaluate Friday per daughter's request. Overall impression: Condition critical. Prognosis poor. This collection of medical problems is not survivable at her age. Persistent lung congestion but air movement has improved. Charles Pedraza MD May 06, 2017 07:38
[2017-05-06] MEDS ORDERED: SODIUM CHLOR 0.9% 1000 ML INJ 1,000 ML IV ONE (07:45)
[2017-05-06 08:22] LABS: BANDS 22 % (0-6); CORRECTED NUCLEATED RBC 3 /100 WBC (0-0); LYMPHOCYTES 4 % (9-44); MONOCYTES 3 % (0-8); MYELOCYTES 2 % (0-0); NEUTROPHIL # MANUAL DIFF 20.3 TH/MM3 (1.8-7.7); NUCLEATED RED BLOOD CELL 3 (0-0); POLYS (SEG NEUTROPHILS) 68 % (16-70)
[2017-05-06 08:23] LABS: TOXIC GRANULATION 2+ (NORMAL)
[2017-05-06] MEDS: LACTULOSE SYRUP 20 GM/30 ML CUP PO SCH (08:57)
[2017-05-06] MEDS: CALCIUM/VITAMIN D 250 MG/125 U TAB PO SCH ×3 (08:58→18:00)
[2017-05-06] MEDS: ASPIRIN 325 MG TAB DOBHOFF SCH (08:58)
[2017-05-06] MEDS: CHOLECALCIFEROL (VIT D3) 5000 UNIT CAP PO SCH (08:58)
[2017-05-06] MEDS: DOCUSATE SODIUM 50 MG/SENNA 8.6 MG TAB PO SCH ×2 (08:58→21:11)
[2017-05-06] MEDS: MICAFUNGIN INJ 100 MG in SODIUM CHLORIDE 0.9% INJ 100 ML IV SCH (08:58)
[2017-05-06] MEDS: LEVOFLOXACIN 750 MG PREMIX INJ 150 ML IV SCH (08:59)
[2017-05-06] MEDS: ENOXAPARIN SODIUM 40 MG/0.4 ML SYRINGE SQ SCH (08:59)
[2017-05-06] MEDS: INSULIN DETEMIR 100 UNITS/ML VIAL SQ SCH ×2 (09:00→20:50)
[2017-05-06] MEDS: SODIUM CHLORIDE 0.9% FLUSH 5 ML FLUSH IV FLUSH SCH ×2 (09:00→20:51)
--- NOTE | 2017-05-06 12:05 | RADRPT ---
EXAM DATE/TIME: 05/06/2017 11:17 [facility] COMPARISON: ABDOMEN SINGLE VIEW, April 25, 2017, 14:56. INDICATIONS : Post dobhoff placement. MEDICAL HISTORY : Stroke. Hypertension. Diabetes. SURGICAL HISTORY : None. ENCOUNTER: Subsequent ACUITY: 3 weeks PAIN SCORE: Non-responsive. LOCATION: abdomen FINDINGS: Feeding tube tip is in the mid stomach. Bowel gas pattern is nonobstructive. No free air seen. Calcif ied uterine fibroids are again noted. CONCLUSION: Feeding tube tip at the level of the mid stomach and can be advanced 15-20 cm. Obdulio Simms MD on May 06, 2017 at 12:02 Board Certified Radiologist. This report was verified electronically.
--- NOTE | 2017-05-06 12:07 | HHI.NSPN ---
(Rene Reed) History Chief Complaint: Unable to obtain due to the patient's clinical condition. 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 05/03/2017: Remains intubated. Minimal eye opening to sternal rub. Grasps left hand good strength to command. 05/06: Patient continues to be intubated and off any sedation. She had a repeat CT brain this morning which demonstrated an evolving large left-sided MCA territory infarct with minimal improvement in the [id number] subfalcine shift. (Rene Reed) System Review Comments Unable to obtain due to the patient's clinical condition. (Rene Reed) Exam Results Vital Signs Date Time Temp Pulse Resp B/P (MAP) Pulse Ox O2 Delivery O2 Flow Rate FiO2 05/06/17 08:06 94 50 05/06/17 06:00 95 05/06/17 04:00 98.3 26 112/68 (83) 05/05/17 19:00 Mechanical Ventilator Intake and Output 05/06/17 05/06/17 05/07/17 08:00 16:00 00:00 Intake Total 945 ml Output Total 300 ml Balance 645 ml (Rene Reed) Physical Examination GENERAL: Patient is obtunded and not responding to verbal stimuli. No sedation. No evident distress. SKIN: Cool, dry & intact w/o any evident rashes, ulcerations or lesions, with generalised dependent edema. HEENT: Normocephalic, atraumatic. PERRL. Orally intubated. Feeding tube. NECK: No JVD, trachea midline. CARDIOVASCULAR: S1S2 w/RRR w/o M/G/R, radial & pedal pulses 1+ bilaterally, cap refill < 2 sec, generalised dependent edema. Monitor is sinus rhythm w/o any evident ectopy. RESPIRATORY: Coarse breath sound, equal excursion, nonlaboured, intubated, mechanically ventilated. GASTROINTESTINAL: Abdomen soft, rounded, positive bowel sounds. Feeding tube clamped. MUSCULOSKELETAL: No evident deformity or clubbing. NEUROLOGICAL: No sedation. Obtunded, no response to verbal stimuli, movement of LUE to localised noxious stimulus to right hand & left hand, none with localised noxious stimulus to either foot or to central noxious stimulus. No definite eye opening noted but patient did resist when pupils were checked, PERRL. Did not follow commands. (Rene Reed) Lab, Micro, Other Results Recent Impressions Head CT 05/06/17 0000 Signed Impressions: Service Date/Time: Saturday, May 06, 2017 04:18 - CONCLUSION: 1. Evolving large left-sided MCA territory infarct with minimally improved [id number] subfalcine shift. 2. No intercurrent hemorrhage or other acute abnormality. Alejo De La Vega MD Hip and Pelvis X-Ray 05/05/17 0000 Signed Impressions: Service Date/Time: Friday, May 05, 2017 10:59 - CONCLUSION: Left proximal femur trochanteric/subtrochanteric fracture lucency visualized. Postoperative changes. Choco Mustafa MD Abdomen X-Ray 05/05/17 0000 Signed Impressions: Service Date/Time: Friday, May 05, 2017 10:51 - CONCLUSION: Left femoral fracture lucency. Nonobstructive bowel gas pattern. Choco Mustafa MD 05/04/17 05/04/17 05/05/17 05/05/17 05/06/17 05/06/17 06:00 18:00 06:00 18:00 06:00 18:00 Intake Total 2043 ml 1883 ml 1810 ml 2006 ml 945 ml Output Total 400 ml 850 ml 500 ml 1400 ml 300 ml Balance 1643 ml 1033 ml 1310 ml 606 ml 645 ml IV Total 1318 ml 1123 ml 1183 ml 1320 ml 679 ml Tube Feeding 575 ml 600 ml 567 ml 566 ml 146 ml Tube Irrigant 150 ml 160 ml 60 ml 120 ml Other 120 ml Output Urine Total 400 ml 850 ml 500 ml 1400 ml 300 ml # Bowel Movements 1 0 1 2 1 Laboratory Tests Test 05/04/17 09:42 05/04/17 19:37 05/05/17 06:10 05/06/17 04:49 White Blood Count 21.4 TH/MM3 20.6 TH/MM3 22.1 TH/MM3 Red Blood Count 2.63 MIL/MM3 2.66 MIL/MM3 2.73 MIL/MM3 Hemoglobin 8.2 GM/DL 8.1 GM/DL 8.6 GM/DL Hematocrit 25.6 % 25.1 % 26.5 % Mean Corpuscular Volume 97.3 FL 94.4 FL 96.9 FL Mean Corpuscular Hemoglobin 31.1 PG 30.6 PG 31.5 PG Mean Corpuscular Hemoglobin Concent 32.0 % 32.4 % 32.5 % Red Cell Distribution Width 14.5 % 14.4 % 14.8 % Platelet Count 422 TH/MM3 393 TH/MM3 475 TH/MM3 Mean Platelet Volume 9.8 FL 10.5 FL 9.8 FL Neutrophils (%) (Auto) 90.6 % 88.1 % 90.8 % Lymphocytes (%) (Auto) 5.3 % 7.6 % 6.3 % Monocytes (%) (Auto) 3.1 % 3.1 % 2.3 % Eosinophils (%) (Auto) 0.6 % 0.4 % 0.4 % Basophils (%) (Auto) 0.4 % 0.8 % 0.2 % Neutrophils # (Auto) 19.4 TH/MM3 18.2 TH/MM3 20.1 TH/MM3 Lymphocytes # (Auto) 1.1 TH/MM3 1.6 TH/MM3 1.4 TH/MM3 Monocytes # (Auto) 0.7 TH/MM3 0.6 TH/MM3 0.5 TH/MM3 Eosinophils # (Auto) 0.1 TH/MM3 0.1 TH/MM3 0.1 TH/MM3 Basophils # (Auto) 0.1 TH/MM3 0.2 TH/MM3 0.0 TH/MM3 CBC Comment AUTO DIFF AUTO DIFF AUTO DIFF Differential Total Cells Counted 100 100 100 Neutrophils % (Manual) 55 % 72 % 68 % Band Neutrophils % 35 % 16 % 22 % Lymphocytes % 1 % 7 % 4 % Monocytes % 7 % 1 % 3 % Neutrophils # (Manual) 19.7 TH/MM3 18.7 TH/MM3 20.3 TH/MM3 Metamyelocytes 2 % 1 % Nucleated Red Blood Cells 1 /100 WBC 2 /100 WBC 3 /100 WBC Differential Comment FINAL DIFF MANUAL FINAL DIFF MANUAL FINAL DIFF MANUAL Platelet Estimate NORMAL NORMAL HIGH Platelet Morphology Comment NORMAL ENLARGED NORMAL Blood Urea Nitrogen 40 MG/DL 38 MG/DL 42 MG/DL Creatinine 0.46 MG/DL 0.36 MG/DL 0.47 MG/DL Random Glucose 101 MG/DL 95 MG/DL 192 MG/DL Total Protein 5.6 GM/DL 4.0 GM/DL 5.8 GM/DL Albumin 1.0 GM/DL 0.9 GM/DL 1.0 GM/DL Calcium Level 8.1 MG/DL 7.2 MG/DL 8.0 MG/DL Phosphorus Level 1.4 MG/DL 1.0 MG/DL 2.7 MG/DL Magnesium Level 2.2 MG/DL 2.1 MG/DL Alkaline Phosphatase 807 U/L 859 U/L 1092 U/L Aspartate Amino Transf (AST/SGOT) 84 U/L 111 U/L 82 U/L Alanine Aminotransferase (ALT/SGPT) 41 U/L 42 U/L 43 U/L Total Bilirubin 0.5 MG/DL 0.6 MG/DL 0.5 MG/DL Sodium Level 151 MEQ/L 150 MEQ/L 147 MEQ/L Potassium Level 3.6 MEQ/L 3.6 MEQ/L 5.0 MEQ/L 4.0 MEQ/L Chloride Level 116 MEQ/L 115 MEQ/L 110 MEQ/L Carbon Dioxide Level 28.6 MEQ/L 26.7 MEQ/L 29.3 MEQ/L Anion Gap 6 MEQ/L 8 MEQ/L 8 MEQ/L Estimat Glomerular Filtration Rate 133 ML/MIN 176 ML/MIN 130 ML/MIN Vancomycin Level Trough 23.8 MCG/ML Eosinophils % 1 % 1 % Myelocytes 2 % 2 % Red Cell Morphology Comment NORMAL Hematology Comments Protein Corrected Calcium 9.0 MG/DL Toxic Granulation 2+ Vital Signs Date Time Temp Pulse Resp B/P (MAP) Pulse Ox O2 Delivery O2 Flow Rate FiO2 05/06/17 08:06 94 50 05/06/17 06:00 95 05/06/17 04:15 99 05/06/17 04:00 100 05/06/17 04:00 98.3 100 26 112/68 (83) 93 05/06/17 04:00 50 05/06/17 03:42 97 50 05/06/17 02:00 97 05/06/17 00:00 50 05/06/17 00:00 110 05/06/17 00:00 99.0 98 22 141/71 (94) 94 9/4/17 23:55 98 50 05/05/17 22:00 101 05/05/17 20:00 105 05/05/17 20:00 99.0 105 23 137/70 (92) 94 05/05/17 20:00 50 05/05/17 19:44 93 50 05/05/17 19:00 92 Mechanical Ventilator 50 05/05/17 18:00 96 05/05/17 17:23 92 50 05/05/17 17:15 93 50 05/05/17 16:00 96 05/05/17 16:00 50 05/05/17 16:00 99.0 96 18 108/59 (75) 94 05/05/17 14:00 94 05/05/17 12:00 50 05/05/17 12:00 97.2 94 20 121/66 (84) 94 05/05/17 12:00 94 05/05/17 11:35 94 50 05/05/17 10:00 103 05/05/17 08:00 55 05/05/17 08:00 99.7 94 22 134/68 (90) 96 05/05/17 08:00 105 05/05/17 07:39 94 55 05/05/17 07:00 96 Mechanical Ventilator 55 05/05/17 06:00 95 05/05/17 04:30 97 60 05/05/17 04:00 98.8 99 24 148/87 (107) 97 05/05/17 04:00 99 05/05/17 04:00 60 05/05/17 02:00 99 05/05/17 00:00 113 05/05/17 00:00 60 05/05/17 00:00 99.2 113 27 144/82 (102) 96 05/04/17 22:00 123 05/04/17 20:39 96 60 05/04/17 20:00 99.6 108 30 145/75 (98) 93 05/04/17 20:00 108 05/04/17 20:00 60 05/04/17 19:00 100 Mechanical Ventilator 60 05/04/17 18:00 98 05/04/17 16:00 60 05/04/17 16:00 100.1 99 19 152/72 (98) 95 05/04/17 16:00 94 05/04/17 15:57 95 60 05/04/17 14:00 98.7 94 16 131/64 (86) 97 05/04/17 14:00 94 05/04/17 12:00 60 05/04/17 12:00 94 05/04/17 11:35 95 60 05/04/17 10:00 113 05/04/17 08:00 100.5 116 19 149/80 (103) 94 05/04/17 08:00 60 05/04/17 08:00 116 05/04/17 07:52 94 60 05/04/17 07:00 85 Mechanical Ventilator 05/04/17 06:00 98 05/04/17 04:58 97 60 05/04/17 04:00 60 05/04/17 04:00 99.8 86 16 138/66 (90) 97 05/04/17 04:00 86 05/04/17 02:00 87 05/04/17 01:11 99 60 05/04/17 00:00 82 05/04/17 00:00 60 05/04/17 00:00 98.6 82 16 106/56 (73) 100 05/03/17 22:00 86 05/03/17 20:33 98 60 05/03/17 20:00 60 05/03/17 20:00 80 05/03/17 20:00 98.2 80 22 167/83 (111) 100 05/03/17 19:00 100 Mechanical Ventilator 45 05/03/17 18:00 83 05/03/17 16:00 90 05/03/17 16:00 99.6 90 23 133/62 (85) 99 05/03/17 16:00 55 05/03/17 15:36 93 55 05/03/17 14:00 77 05/03/17 12:07 95 55 05/03/17 12:00 76 05/03/17 12:00 50 05/03/17 12:00 98.0 76 21 146/72 (96) 95 (Rene Reed) Medical Decision Making Impression and Plan Impression: 1. Large left MCA CVA 2. Persistent right hemiplegia 3. Aspiration pneumonia 4. Hypoxic respiratory failure Patient essentially obtunded, does respond to noxious stimuli to upper extremities w/withdrawal of LUE, no response to verbal stimuli. Plan: Primary management per Shake Sawyer. Frequent neuro checks. Continue ventilatory support. Continue keep sodium 148-154 range. (Rene Reed) Attending Statement I have personally seen and examined the patient on the date of this note. Pertinent documentation and study results have been reviewed by the undersigned. I have personally developed the treatment plan and performed medical decision making. Agree with findings, exam, and treatment plan as noted above. Patient's neurologic exam slowly improving. Sodium satisfactory Continue observation (Parker López MD) Rene Reed May 06, 2017 12:07 Parker López MD May 07, 2017 21:07
--- NOTE | 2017-05-06 13:32 | RADRPT ---
EXAM DATE/TIME: 05/06/2017 12:58 [facility] COMPARISON: ABDOMEN KUB ONLY, May 06, 2017, 11:17. INDICATIONS : Advanced dobhoff, repeat for placement. MEDICAL HISTORY : Stroke. Hypertension Diabetes. SURGICAL HISTORY : None. ENCOUNTER: Initial ACUITY: 2 weeks PAIN SCORE: Non-responsive. LOCATION: Bilateral abdpmen FINDINGS: The Dobbhoff has been advanced and is now coiled in the stomach, tip near the fundus. CONCLUSION: Dobbhoff feeding tube coiled in the stomach. Obdulio Simms MD on May 06, 2017 at 13:30 Board Certified Radiologist. This report was verified electronically.
--- NOTE | 2017-05-06 16:03 | RADRPT ---
EXAM DATE/TIME: 05/06/2017 15:24 [facility] COMPARISON: ABDOMEN KUB ONLY, May 06, 2017, 12:58. INDICATIONS : Repeat for placement of the dobhoff MEDICAL HISTORY : Hypertension. Diabetes SURGICAL HISTORY : None. ENCOUNTER: Initial ACUITY: 2 weeks PAIN SCORE: Non-responsive. LOCATION: Bilateral abdomen FINDINGS: Supine view of the abdomen was performed. The abdominal bowel gas pattern is normal. No abnormal ma sses, calcifications, or organomegaly is seen. The osseous structures are unremarkable. CONCLUSION: 1. The Dobbhoff tube remains looped in the stomach with the tip in the fundus unchanged from the prio r study Toy Duran MD on May 06, 2017 at 16:01 Board Certified Radiologist. This report was verified electronically.
[2017-05-06] MEDS: PANTOPRAZOLE SODIUM 40 MG VIAL IV PUSH SCH (17:00)
--- NOTE | 2017-05-06 17:40 | RADRPT ---
EXAM DATE/TIME: 05/06/2017 17:02 [facility] COMPARISON: ABDOMEN KUB ONLY, May 06, 2017, 15:24. INDICATIONS : Advanced dobhoff, repeat for placement. MEDICAL HISTORY : Stroke. Hypertension Diabetes. SURGICAL HISTORY : None. ENCOUNTER: Subsequent ACUITY: 2 weeks PAIN SCORE: Non-responsive. LOCATION: abdomen. FINDINGS: No significant change in the Dobbhoff feeding tube coiled in the stomach, tip near the fundus. CONCLUSION: No change. Coiled feeding tube tip at the fundus. Obdulio Simms MD on May 06, 2017 at 17:38 Board Certified Radiologist. This report was verified electronically.
--- NOTE | 2017-05-06 18:03 | RADRPT ---
EXAM DATE/TIME: 05/06/2017 17:42 [facility] COMPARISON: No previous studies available for comparison. INDICATIONS : Dubhoff placement. MEDICAL HISTORY : None. SURGICAL HISTORY : None. ENCOUNTER: Subsequent ACUITY: 2 weeks PAIN SCORE: 0/10 LOCATION: Bilateral chest FINDINGS: Dobbhoff feeding tube tip is now at the gastric outlet/first portion of the duodenum. Nonobstructive bowel gas pattern. CONCLUSION: Dobbhoff feeding tube tip near the gastroduodenal junction. Obdulio Simms MD on May 06, 2017 at 18:01 Board Certified Radiologist. This report was verified electronically.
--- NOTE | 2017-05-06 18:27 | HHI.FPPN ---
Subjective Remarks Ms Hein opens her eyes today and can follow very simple commands (squeeze hand and release hand); however, cannot speak and does not seem to understand simple words in her eek language (Cymraes). Still right hemiplegia, with swelling of the right arm, intubated, on ventilator. Nursing reports that daughter met with Palliative Care on 05/05 and no longer wishes to speak with them. Dr Pedraza seeing pt on child monitor side. (Chuy Camacho MD R1) Objective Vitals Vital Signs Date Time Temp Pulse Resp B/P (MAP) Pulse Ox O2 Delivery O2 Flow Rate FiO2 05/06/17 11:40 100 50 05/06/17 08:06 94 50 05/06/17 07:00 94 Mechanical Ventilator 50 05/06/17 06:00 95 05/06/17 04:15 99 05/06/17 04:00 100 05/06/17 04:00 98.3 100 26 112/68 (83) 93 05/06/17 04:00 50 05/06/17 03:42 97 50 05/06/17 02:00 97 05/06/17 00:00 50 05/06/17 00:00 110 05/06/17 00:00 99.0 98 22 141/71 (94) 94 05/05/17 23:55 98 50 05/05/17 22:00 101 05/05/17 20:00 105 05/05/17 20:00 99.0 105 23 137/70 (92) 94 05/05/17 20:00 50 05/05/17 19:44 93 50 05/05/17 19:00 92 Mechanical Ventilator 50 05/05/17 18:00 96 I/O 05/05/17 05/05/17 05/05/17 05/06/17 05/06/17 05/06/17 07:00 15:00 23:00 07:00 15:00 23:00 Intake Total 1810 ml 2006 ml 945 ml Output Total 500 ml 1400 ml 300 ml Balance 1310 ml 606 ml 645 ml IV Total 1183 ml 1320 ml 679 ml Tube Feeding 567 ml 566 ml 146 ml Tube Irrigant 60 ml 120 ml Other 120 ml Output Urine Total 500 ml 1400 ml 300 ml # Bowel Movements 1 2 1 (Chuy Camacho MD R1) Result Diagram: 05/06/17 0449 05/06/17 0449 Imaging Last Impressions Head CT 05/06/17 0000 Signed Impressions: Service Date/Time: Saturday, May 06, 2017 04:18 - CONCLUSION: 1. Evolving large left-sided MCA territory infarct with minimally improved icni-rk-pjquj subfalcine shift. 2. No intercurrent hemorrhage or other acute abnormality. Alejo De La Vega MD Abdomen X-Ray 05/06/17 0000 Signed Impressions: Service Date/Time: Saturday, May 06, 2017 17:02 - CONCLUSION: No change. Coiled feeding tube tip at the fundus. Obdulio Simms MD Hip and Pelvis X-Ray 05/05/17 0000 Signed Impressions: Service Date/Time: Friday, May 05, 2017 10:59 - CONCLUSION: Left proximal femur trochanteric/subtrochanteric fracture lucency visualized. Postoperative changes. Choco Mustafa MD Chest X-Ray 05/02/17 0600 Signed Impressions: Service Date/Time: Tuesday, May 02, 2017 04:02 - CONCLUSION: Increased airspace opacity bilaterally. The pattern may represent pulmonary edema. There is likely a left pleural effusion. Obdulio Sam MD Chest CT 04/30/17 0000 Signed Impressions: Service Date/Time: Sunday, April 30, 2017 09:20 - CONCLUSION: 1. Bilateral pulmonary infiltrates more pronounced within the lower lobes with tiny bilateral pleural effusions. Material seen filling the lower lobe bronchi bilaterally either related to purulent material or perhaps mucus plugging. Deangelo Wren Jr., MD Carotid Artery Ultrasound 04/24/17 0000 Signed Impressions: Service Date/Time: April 09:45 - CONCLUSION: 1. No hemodynamically significant carotid artery stenosis. Arnie Middleton MD Hip X-Ray 04/21/17 0000 Signed Impressions: Service Date/Time: Friday, April 21, 2017 11:36 - CONCLUSION: Fluoroscopic images during placement of intramedullary siomara left femur. Benja Ramsey MD Objective Remarks CONSTITUTIONAL/GEN: Nonverbal, lying in bed. Intubated, sedated, and on ventilator, receiving tube feeds. Nurse removing secretions with Dobbhoff. LUNGS: coarse breath sounds throughout, improved CARDIOVASCULAR: Regular rate and rhythm without murmur or gallop. GI/ABD: distended and tense without masses, without organomegaly. NEURO: Intubated and sedated with eyes open and some looking around with minimal neck movement. MUSC: Bandages on lateral left hip and thigh are clean dry and intact. SCDs on bilateral lower extremities. Pedal pulses weak. SKIN: cellulitis on bilateral UEs resolving; cool cool and dry on LEs bilaterally. Procedures ORIF 04/21/17 Intubation 04/30/17 Medications and IVs Current Medications Medications (Trade) Dose Ordered Sig/Zeferino Route Start Time Stop Time Status Last Admin (Tylenol) 650 mg Q6H PRN PO 04/20/17 14:30 05/03/17 00:27 (Zofran Inj) 4 mg Q6H PRN IV PUSH 04/20/17 15:00 04/30/17 02:28 (Morphine Inj) 1 mg Q3H PRN IV 04/20/17 17:15 04/28/17 18:15 (Morphine Inj) 2 mg Q3H PRN IV 04/20/17 17:15 04/30/17 02:29 (Narcan Inj) 0.4 mg UNSCH PRN IV 04/20/17 17:15 (Nalini-Colace) 1 tab BID PO 04/20/17 21:00 05/06/17 08:58 (Milk Of [place]) 30 ml Q12H PRN PO 04/20/17 20:30 (Senokot) 17.2 mg Q12H PRN PO 04/20/17 20:30 04/23/17 22:55 (Dulcolax Supp) 10 mg DAILY PRN RECTAL 04/20/17 20:30 (Oscal-D 250-125) 250 mg TID PO 04/21/17 13:00 05/06/17 08:58 ([place] 7.5-325 Mg) 1 tab Q3H PRN PO 04/21/17 11:45 05/03/17 20:17 (Vitamin D3) 5,000 units DAILY PO 04/22/17 09:00 05/06/17 08:58 (NS Flush) 2 ml BID IV FLUSH 04/24/17 21:00 05/06/17 09:00 (NS Flush) 2 ml UNSCH PRN IV FLUSH 04/24/17 09:30 (Glucagon Inj) 1 mg UNSCH PRN IM/SQ 04/24/17 18:15 (Aspirin) 325 mg DAILY DOBHOFF 04/27/17 09:00 05/06/17 08:58 (D50w (Syr) Inj) 25 ml UNSCH PRN IV 04/26/17 20:30 05/05/17 00:00 (Lopressor Inj) 5 mg Q5M PRN IV PUSH 04/27/17 04:00 05/03/17 18:26 Potassium Chloride 100 ml @ 50 mls/hr Q2H PRN IV 04/27/17 08:45 Potassium Chloride 100 ml @ 50 mls/hr Q2H PRN IV 04/27/17 08:45 04/27/17 16:44 (K-Lyte Cl Eff) 50 meq UNSCH PRN PO 04/27/17 08:45 Potassium Chloride 100 ml @ 25 mls/hr UNSCH PRN IV 04/27/17 08:45 05/04/17 19:07 Potassium Chloride 100 ml @ 50 mls/hr Q2H PRN IV 04/27/17 08:45 04/29/17 12:15 Magnesium Sulfate 4 gm/Sodium Chloride 100 ml @ 50 mls/hr UNSCH PRN IV 04/27/17 08:45 (Mag-Ox) 800 mg UNSCH PRN PO 04/27/17 08:45 Magnesium Sulfate 2 gm/Sodium Chloride 100 ml @ 50 mls/hr UNSCH PRN IV 04/27/17 08:45 (K-Phos) 2,000 mg Q4H PRN PO 04/27/17 08:45 04/28/17 15:38 Sodium Phosphate 30 mmol/Sodium Chloride 250 ml @ 42 mls/hr UNSCH PRN IV 04/27/17 08:45 04/27/17 23:59 (K-Phos) 2,000 mg UNSCH PRN PO/TUBE 04/27/17 08:45 Potassium Phosphate 30 mmol/ Sodium Chloride 260 ml @ 42 mls/hr UNSCH PRN IV 04/27/17 08:45 05/04/17 20:54 (Protonix Inj) 40 mg Q24H IV PUSH 04/28/17 17:00 05/05/17 16:46 (NovoLOG SUPPLEMENTAL SCALE) 1 ACHS SLIDING SCALE SQ 04/28/17 16:00 05/05/17 21:38 (Flagyl) 500 mg Q8HR DOBHOFF 04/29/17 14:00 05/06/17 06:00 (Duoneb Neb) 1 ampule Q4HR NEB PRN NEB 04/30/17 04:45 05/04/17 20:38 Micafungin Sodium 100 mg/Sodium Chloride 100 ml @ 100 mls/hr Q24H IV 04/30/17 09:00 05/06/17 08:58 (Lovenox Inj) 40 mg Q24H SQ 05/01/17 08:00 05/06/17 08:59 Lactated Ringer's 1,000 ml @ 75 mls/hr [id number] IV 05/02/17 13:00 05/06/17 13:04 Levofloxacin/ Dextrose 150 ml @ 100 mls/hr Q24H IV 05/04/17 09:00 05/06/17 08:59 (Duoneb Neb) 1 ampule Q6HR NEB NEB 05/05/17 10:00 05/06/17 08:03 (Levemir Inj) 10 units Q12H SQ 05/05/17 21:00 05/05/17 21:37 (Lactulose Liq) 30 ml DAILY PO 05/05/17 09:30 05/06/17 08:57 (Chuy Camacho MD R1) Urinary Catheter: Yes (intubated in ICU on ventilator) [place] insert reason: Obstruction/Retention Date of Insertion: May 02, 2017 (Chuy Camacho MD R1) A/P Assessment and Plan 76 y/o female with HTN, DM, CVA admitted for DKA and hip fracture. Now with massive left MCA stroke, right hemiplegia and midline shift resolving. Neuro and child monitor consulted. Working with palliative care and family for goals of care. -Overall poor prognosis, pursuing goals of care discussion with daughter (HCPOA) , but at this time, daughter wishes continued intervention Discharge Planning Pending stroke progression and discussion for goals of care (Chuy Camacho MD R1) Attending Attestation Patient seen and examined. Case reviewed and discussed Agree with plan of care as discussed with me and documented in the resident note. (Angélica Malik MD) Problem List: (1) Acute CVA (cerebrovascular accident) ICD Codes: I63.9 - Cerebral infarction, unspecified Status: Acute Plan: Patient found minimally responsive with neurological deficits around 0820 04/24. Stat CT of head was ordered, which showed large left MCA infarct. Diffuse edema throughout the left MCA distribution, suggest completed infarct. This was discussed and was not a candidate for intracranial intervention. CT (04/30): Reduction in midline shift to 11mm. Unchanged large left MCA infarction. CT head (05/06) shows: Evolving large left-sided MCA territory infarct with minimally improved [id number] subfalcine shift. No intercurrent hemorrhage or other acute abnormality. Echocardiogram- The left ventricular systolic function is low normal with an estimated ejection fraction in the range of 50-55%. Mild concentric left ventricular hypertrophy. Normal left ventricular size. Krujt-je-efou mitral valve regurgitation. Carotid Artery US- No hemodynamically significant carotid stenosis -Consulted child monitor, appreciate recs -Intubated/sedated; does not recommend tracheostomy -IV hydration, watch for hypotension. -Keep systolic to less than 220 -Lactated Ringer's reduced to 75 ml/hr -Poor prognosis -Neurosurgery consulted -Recommended conservative management -Keep Na in 145-154 range -Tube feeds: Glucerna 1.5 mLs for diet via Dobbhoff tube -Machine Marker consult for management and recs -Consult palliative care-appreciate recs -Case discussed with daughter in-person about goals of care, limited treatment options, and poor prognosis. -Daughter continues to want aggressive care. Wishes to continue aggressive medical treatment despite prognosis -Neurology consulted-appreciate recs -Rectal ASA -Lovenox 40mg daily (2) Sepsis ICD Codes: A41.9 - Sepsis, unspecified organism Status: Acute Plan: Pt meets SIRS criteria 04/30. On 05/06, afebrile and VSS, but WBC elevated to 22.1, increased since 05/05 (20.6) Source of infection, likely pulmonary vs urinary -See antibiotics as below -Culture results as below -Monitor vitals (3) HCAP (healthcare-associated pneumonia) ICD Codes: J18.9 - Pneumonia, unspecified organism Status: Acute Plan: Chest CT (04/30): Bilateral pulmonary infiltrates more pronounced within lower lobes with b/l pleural effusions. Material in lower lobe bronchi b/l, purulent or mucus plugging CXR 05/02: Increased airspace opacity bilaterally. The pattern may represent pulmonary edema. There is likely a left pleural effusion. Suspect possible HCAP. Slightly decreased leukocytosis at 20.6 on 05/05 and afebrile. Possible aspiration -Levaquin IV (05/04- ) HCAP -Flagyl 500mg q8H (04/29 - ) for aspiration -Discontinued Cefepime 2g IV daily (04/30 - d/c 05/04 ) -Discontinued Vancomycin IV (04/30 - d/c 05/04 ) -Legionella and strep pneumo urine tests negative -Sputum culture showing staph aureus and Serratia Marcescens -Repeat blood cultures, with 09/04 positive; possible contaminant (4) Yeast UTI ICD Codes: B37.49 - Other urogenital candidiasis Status: Resolved Plan: UA showed glucose, large number of leukocytes esterase, innumerable WBCs , rare bacteria, and few yeast Urine culture shows Lea Glabrata -Continue Micafungin 100mg IV daily (5) Abdominal distension ICD Codes: R14.0 - Abdominal distension (gaseous) Status: Acute Plan: Abdominal distension evident on exam 05/05 with serial KUBs neg for etiology 05/06 - CT abdomen/pelvis to look for occult source of infection/distension; Dr Pedraza concurs with study - Check GGT due to high Alk Phos 1092 (6) Type 2 diabetes mellitus ICD Codes: E11.9 - Type 2 diabetes mellitus without complications Status: Chronic Plan: Admitted for DKA which has now resolved. Hemoglobin A1C is 12.9. Diabetes is uncontrolled. -Per Dr Pedraza, Levemir 10 units BID due to hypoglycemia at higher dose -Medium dose insulin sliding scale with goal blood glucose between 140 and 180 -Glucerna for NG tube feedings -Regular accuchecks q4H -LR IVF @ 75 ml/hr as above (7) Atrial fibrillation ICD Codes: I48.91 - Unspecified atrial fibrillation Status: Acute Plan: Hx of intermittent Afib. Resolved with administration of Lopressor. -Continue to monitor -Lopressor PRN (8) Hip fracture ICD Codes: S72.009A - Fracture of unspecified part of neck of unspecified femur , initial encounter for closed fracture Status: Acute Plan: S/P left hip reduction and intramedullary nail fixation on 04-21-17 -Consult orthopedics-appreciate recs * Cleared for discharge to rehabilitation * WBAT * Daily dressing changes * CM for rehabilitation placement * Follow-up in 2 weeks -Calcium/Vitamin D -Fluids as above -Tylenol, morphine PRN pain (9) Hypertension ICD Codes: I10 - Essential (primary) hypertension Status: Acute Plan: IV hydration. BPs wnl overnight -Continue fluids as above -Antihypertensives to keep SBP<180 (10) Fluids, Electrolytes, and Nutrition Status: Acute Plan: Fluids: IVF as above Electrolyte: on electrolyte protocol Nutrition: Glucerna tube feeds DVT ppx: SCDs/lovenox as above GI ppx: protonix (Chuy Camacho MD R1) Problem Qualifiers (1) Sepsis: Qualified Codes: A41.9 - Sepsis, unspecified organism (2) Type 2 diabetes mellitus: Qualified Codes: E11.9 - Type 2 diabetes mellitus without complications (3) Atrial fibrillation: Qualified Codes: I48.0 - Paroxysmal atrial fibrillation (4) Hip fracture: (5) Hypertension: Qualified Codes: I10 - Essential (primary) hypertension Chuy Camacho MD R1 May 06, 2017 18:27 Angélica Malik MD May 11, 2017 15:46
--- NOTE | 2017-05-06 20:13 | HHI.PR ---
Review/Management Diagnosis large left MCA stroke- Diagnosis/Plan: Subjective Subjective Comments No acute events reported Active Medications Current Medications Medications (Trade) Dose Ordered Sig/Zeferino Route Start Time Stop Time Status Last Admin (Tylenol) 650 mg Q6H PRN PO 04/20/17 14:30 05/03/17 00:27 (Zofran Inj) 4 mg Q6H PRN IV PUSH 04/20/17 15:00 04/30/17 02:28 (Morphine Inj) 1 mg Q3H PRN IV 04/20/17 17:15 04/28/17 18:15 (Morphine Inj) 2 mg Q3H PRN IV 04/20/17 17:15 04/30/17 02:29 (Narcan Inj) 0.4 mg UNSCH PRN IV 04/20/17 17:15 (Nalini-Colace) 1 tab BID PO 04/20/17 21:00 05/06/17 08:58 (Milk Of Magnesia Liq) 30 ml Q12H PRN PO 04/20/17 20:30 (Senokot) 17.2 mg Q12H PRN PO 04/20/17 20:30 04/23/17 22:55 (Dulcolax Supp) 10 mg DAILY PRN RECTAL 04/20/17 20:30 (Oscal-D 250-125) 250 mg TID PO 04/21/17 13:00 05/06/17 08:58 ([place] 7.5-325 Mg) 1 tab Q3H PRN PO 04/21/17 11:45 05/03/17 20:17 (Vitamin D3) 5,000 units DAILY PO 04/22/17 09:00 05/06/17 08:58 (NS Flush) 2 ml BID IV FLUSH 04/24/17 21:00 05/06/17 09:00 (NS Flush) 2 ml UNSCH PRN IV FLUSH 04/24/17 09:30 (Glucagon Inj) 1 mg UNSCH PRN IM/SQ 04/24/17 18:15 (Aspirin) 325 mg DAILY DOBHOFF 04/27/17 09:00 05/06/17 08:58 (D50w (Syr) Inj) 25 ml UNSCH PRN IV 04/26/17 20:30 05/05/17 00:00 (Lopressor Inj) 5 mg Q5M PRN IV PUSH 04/27/17 04:00 05/03/17 18:26 Potassium Chloride 100 ml @ 50 mls/hr Q2H PRN IV 04/27/17 08:45 Potassium Chloride 100 ml @ 50 mls/hr Q2H PRN IV 04/27/17 08:45 04/27/17 16:44 (K-Lyte Cl Eff) 50 meq UNSCH PRN PO 04/27/17 08:45 Potassium Chloride 100 ml @ 25 mls/hr UNSCH PRN IV 04/27/17 08:45 05/04/17 19:07 Potassium Chloride 100 ml @ 50 mls/hr Q2H PRN IV 04/27/17 08:45 04/29/17 12:15 Magnesium Sulfate 4 gm/Sodium Chloride 100 ml @ 50 mls/hr UNSCH PRN IV 04/27/17 08:45 (Mag-Ox) 800 mg UNSCH PRN PO 04/27/17 08:45 Magnesium Sulfate 2 gm/Sodium Chloride 100 ml @ 50 mls/hr UNSCH PRN IV 04/27/17 08:45 (K-Phos) 2,000 mg Q4H PRN PO 04/27/17 08:45 04/28/17 15:38 Sodium Phosphate 30 mmol/Sodium Chloride 250 ml @ 42 mls/hr UNSCH PRN IV 04/27/17 08:45 04/27/17 23:59 (K-Phos) 2,000 mg UNSCH PRN PO/TUBE 04/27/17 08:45 Potassium Phosphate 30 mmol/ Sodium Chloride 260 ml @ 42 mls/hr UNSCH PRN IV 04/27/17 08:45 05/04/17 20:54 (Protonix Inj) 40 mg Q24H IV PUSH 04/28/17 17:00 05/06/17 17:00 (NovoLOG SUPPLEMENTAL SCALE) 1 ACHS SLIDING SCALE SQ 04/28/17 16:00 05/05/17 21:38 (Flagyl) 500 mg Q8HR DOBHOFF 04/29/17 14:00 05/06/17 06:00 (Duoneb Neb) 1 ampule Q4HR NEB PRN NEB 04/30/17 04:45 05/04/17 20:38 Micafungin Sodium 100 mg/Sodium Chloride 100 ml @ 100 mls/hr Q24H IV 04/30/17 09:00 05/06/17 08:58 (Lovenox Inj) 40 mg Q24H SQ 05/01/17 08:00 05/06/17 08:59 Lactated Ringer's 1,000 ml @ 75 mls/hr [id number] IV 05/02/17 13:00 05/06/17 13:04 Levofloxacin/ Dextrose 150 ml @ 100 mls/hr Q24H IV 05/04/17 09:00 05/06/17 08:59 (Duoneb Neb) 1 ampule Q6HR NEB NEB 05/05/17 10:00 05/06/17 20:00 (Levemir Inj) 10 units Q12H SQ 05/05/17 21:00 05/05/17 21:37 (Lactulose Liq) 30 ml DAILY PO 05/05/17 09:30 05/06/17 08:57 Allergies Allergies Coded Allergies No Known Allergies (Unverified04/20/17) Review of Systems All other ROS: Unable to obtain Exam I&O / VS 05/06/17 05/06/17 05/07/17 15:00 23:00 07:00 Intake Total 2060 ml Output Total 350 ml Balance 1710 ml IV Total 2060 ml Output Urine Total 350 ml # Bowel Movements 2 Vital Signs Date Time Temp Pulse Resp B/P (MAP) Pulse Ox O2 Delivery O2 Flow Rate FiO2 05/06/17 18:00 89 05/06/17 16:00 88 05/06/17 16:00 98.7 88 23 119/61 (80) 94 05/06/17 16:00 96 50 05/06/17 16:00 50 05/06/17 14:00 84 05/06/17 12:00 98.0 86 20 141/77 (98) 94 05/06/17 12:00 86 05/06/17 12:00 50 05/06/17 11:40 100 50 05/06/17 10:00 95 05/06/17 08:06 94 50 05/06/17 08:00 86 05/06/17 08:00 98.0 86 15 120/56 (77) 94 05/06/17 08:00 50 05/06/17 07:00 94 Mechanical Ventilator 50 05/06/17 06:00 95 05/06/17 04:15 99 05/06/17 04:00 100 05/06/17 04:00 98.3 100 26 112/68 (83) 93 05/06/17 04:00 50 05/06/17 03:42 97 50 05/06/17 02:00 97 05/06/17 00:00 50 05/06/17 00:00 110 05/06/17 00:00 99.0 98 22 141/71 (94) 94 05/05/17 23:55 98 50 05/05/17 22:00 101 Cardiology: Normal rate (Tachycardic) Musculoskeletal: ROM (within normal limits) Exam Comments Intubated,lethargic, but arousable and follow simple commands CN--left conjugate gaze deviation. PERRL, Right upper motor neuron CN 7 palsey. MOTOR--no spontaneous movement RUE or RLE. with draws LUE and LLE Objective Radiology Results CT brain--large left MCA stroke with slight reduction in mass effect Micro and Labs Laboratory Tests Test 05/06/17 04:49 White Blood Count 22.1 Red Blood Count 2.73 Hemoglobin 8.6 Hematocrit 26.5 Mean Corpuscular Volume 96.9 Mean Corpuscular Hemoglobin 31.5 Mean Corpuscular Hemoglobin Concent 32.5 Red Cell Distribution Width 14.8 Platelet Count 475 Mean Platelet Volume 9.8 Neutrophils (%) (Auto) 90.8 Lymphocytes (%) (Auto) 6.3 Monocytes (%) (Auto) 2.3 Eosinophils (%) (Auto) 0.4 Basophils (%) (Auto) 0.2 Neutrophils # (Auto) 20.1 Lymphocytes # (Auto) 1.4 Monocytes # (Auto) 0.5 Eosinophils # (Auto) 0.1 Basophils # (Auto) 0.0 CBC Comment AUTO DIFF Differential Total Cells Counted 100 Neutrophils % (Manual) 68 Band Neutrophils % 22 Lymphocytes % 4 Monocytes % 3 Eosinophils % 1 Neutrophils # (Manual) 20.3 Myelocytes 2 Nucleated Red Blood Cells 3 Differential Comment FINAL DIFF MANUAL Toxic Granulation 2+ Platelet Estimate HIGH Platelet Morphology Comment NORMAL Blood Urea Nitrogen 42 Creatinine 0.47 Random Glucose 192 Total Protein 5.8 Albumin 1.0 Calcium Level 8.0 Alkaline Phosphatase 1092 Aspartate Amino Transf (AST/SGOT) 82 Alanine Aminotransferase (ALT/SGPT) 43 Total Bilirubin 0.5 Sodium Level 147 Potassium Level 4.0 Chloride Level 110 Carbon Dioxide Level 29.3 Anion Gap 8 Estimat Glomerular Filtration Rate 130 Date/Time Source Procedure Growth Status 04/29/17 17:05 Blood Peripheral Aerobic Blood Culture - Final NO GROWTH IN 5 DAYS Complete 04/29/17 17:05 Anaerobic Blood Culture - Final Staphylococcus Aureus Complete 04/30/17 18:00 Sputum Endotracheal Gram Stain - Final Complete 04/30/17 18:00 Sputum Culture - Final Staphylococcus Aureus Serratia Marcescens Complete 05/03/17 13:55 Urine Catheterized Urine Legionella Antigen - Final PRESUMPTIVE NEGATIVE FOR LEGIONELLA P... Complete 05/03/17 13:55 Urine Catheterized Urine Streptococcus pneumoniae Antigen (M - Final PRESUMPTIVE NEGATIVE FOR STREPTOCOCCU... Complete Marcio Malave PhD May 06, 2017 20:13
[2017-05-06] MEDS ORDERED: ALBUMIN HUMAN 5% 25 GM/500 ML BOTTLE IV ONE (20:45)
[2017-05-07] VITALS (20 sets, daily range): BP systolic 111–155; BP diastolic 65–81; PULSE 85–114; RESP 15–24; TEMP 97.6–98.5; O2SAT 92–100
[2017-05-07] MEDS: RESP: ALBUTEROL 2.5 MG/IPRATROPIUM 0.5 MG NEB (SCH) NEB ×4 (03:22→20:03)
[2017-05-07 05:33] LABS: ALBUMIN 1.5 GM/DL (3.4-5.0); BICARBONATE 27.8 MEQ/L (21.0-32.0); CALCIUM 7.7 MG/DL (8.5-10.1); CREATININE 0.37 MG/DL (0.50-1.00); DIRECT BILIRUBIN ADULT 0.8 MG/DL (0.0-0.2); INDIRECT BILIRUBIN 0.4 MG/DL (0.0-0.8); TOTAL BILIRUBIN ADULT 1.2 MG/DL (0.2-1.0); TOTAL PROTEIN 5.1 GM/DL (6.4-8.2)
[2017-05-07] MEDS: LACTATED RINGER'S 1000 ML INJ 1,000 ML IV SCH ×2 (05:57→16:39)
[2017-05-07] MEDS: metroNIDAZOLE 500 MG TAB DOBHOFF SCH ×3 (06:03→21:09)
[2017-05-07] MEDS: INSULIN ASPART SUPPLEMENTAL SCALE SQ SCH ×4 (06:03→21:00)
--- NOTE | 2017-05-07 06:03 | RADRPT ---
EXAM DATE/TIME: 05/07/2017 04:38 [facility] COMPARISON: CHEST SINGLE AP, May 02, 2017, 4:02. INDICATIONS : Shortness of breath. MEDICAL HISTORY : Hypertension. Diabetes mellitus type II. SURGICAL HISTORY : None. ENCOUNTER: Sequela ACUITY: 2 weeks PAIN SCORE: Non-responsive. LOCATION: Bilateral chest FINDINGS: Slightly low-lying ETT with tip approximately one centimeters above the valerie. Feeding type nasoente hermilo catheter coursing beyond the GE junction with tip omitted from the image. Accounting for differen frantz in technique, there is mild interval progression of bilateral airspace consolidation. There is li krysten increased left pleural effusion. Cardiothymic contours are grossly stable. Remainder of the exam is unchanged. CONCLUSION: 1. Stable Low-lying ETT with tip approximately 1 cm above the valerie. 2. Mild interval progression of bilateral airspace consolidation exaggerated by patient rotation. 3. Increased small left pleural effusion. Alejo De La Vega MD on May 07, 2017 at 5:58 Board Certified Radiologist. This report was verified electronically.
[2017-05-07] MEDS: SODIUM CHLORIDE 0.9% FLUSH 5 ML FLUSH IV FLUSH SCH ×2 (09:00→21:09)
[2017-05-07] MEDS: LEVOFLOXACIN 750 MG PREMIX INJ 150 ML IV SCH (10:29)
[2017-05-07] MEDS: MICAFUNGIN INJ 100 MG in SODIUM CHLORIDE 0.9% INJ 100 ML IV SCH (10:29)
[2017-05-07] MEDS: LACTULOSE SYRUP 20 GM/30 ML CUP PO SCH ×3 (10:29→21:08)
[2017-05-07] MEDS: ASPIRIN 325 MG TAB DOBHOFF SCH (10:29)
[2017-05-07] MEDS: DOCUSATE SODIUM 50 MG/SENNA 8.6 MG TAB PO SCH (10:30)
[2017-05-07] MEDS: CALCIUM/VITAMIN D 250 MG/125 U TAB PO SCH ×3 (10:30→16:37)
[2017-05-07] MEDS: CHOLECALCIFEROL (VIT D3) 5000 UNIT CAP PO SCH (10:30)
[2017-05-07] MEDS: INSULIN DETEMIR 100 UNITS/ML VIAL SQ SCH ×2 (10:43→20:15)
[2017-05-07] MEDS: ENOXAPARIN SODIUM 40 MG/0.4 ML SYRINGE SQ SCH (10:43)
[2017-05-07] MEDS ORDERED: RESP: ALBUTEROL 2.5 MG/3 ML NEB (PRN) NEB (12:30)
--- NOTE | 2017-05-07 12:56 | HHI.CCPN ---
Subjective Remarks/Hospital Course 04/24: 76-year-old female with a medical history significant for prior stroke, diabetes mellitus who was admitted with DKA and a hip fracture for which she underwent ORIF on 04/21. Patient developed altered mental status and was last noted to be okay around 5:30 AM. Subsequently there was a change in her mental status and she was noted to not be moving her right side for which stroke alert was called. Head CT showed large left MCA territory ischemic infarct with edema. Patient was transferred to the ICU by family medicine service in the critical care consult was requested. I evaluated the patient following arrival to the ICU. At that time she was laying in bed with her eyes open however not following commands and had a dense right hemiplegia. Patient was also evaluated by Dr. Malave from neurology. I further discussed current event with patient's daughter following her arrival to the ICU. Per the daughter patient has been living with her since her stroke in 2014 and does ambulate however has been having problems with memory and incontinence as well as gait difficulties. She does not feel patient would want intubation or tracheostomy or PEG tube. 04/25: Patient remains encephalopathic, awake though not following commands consistently. Dense right hemiplegia persists. Appears to be awake enough to protect airway currently. Patient's daughter rescinded DNR and made a full code last evening. 04/26: Remains encephalopathic, not following commands. On Dobbhoff for tube feeds at 30 cc per hour. Had urinary retention and drained 2 L of urine after placing Leavitt catheter today. CT head done this morning with large left MCA territory infarct with left to right midline shift and significant cerebral edema. Hyperglycemia noted. Patient given mannitol earlier for increasing cerebral edema. 04/27: Remains encephalopathic, not following commands. On Dobbhoff tube feeds at 30 cc per hour. When into A. fib with RVR last night which responded with Lopressor 5 mg IV 1 dose. 04/28: Remains encephalopathic, arousable, not following commands. Moves left upper extremity spontaneously. Tolerating Dobbhoff tube feeds. Remains on nasal cannula. 04/29: Encephalopathic, eyes be arousable, moves left upper extremity spontaneously and occasionally opens eyes. Dense right hemiplegia and aphasia persists. On nasal cannula. Dobbhoff tube feeds being advanced. Patient was transfused 1 unit PRBCs yesterday. Urine culture with yeast from yesterday for which fluconazole being started. Had brief run of A. fib with RVR which improved with Lopressor IV, currently in sinus rhythm. 04/30: Worsening hypoxemic respiratory failure, currently on partial nonrebreather. Remains lethargic. WBC count increased from 14.6 today 20.7. Chest x-ray shows bilateral worsening infiltrates and small pleural effusions. Sodium 154, weight up by 8 KG. Albumin 1 mg Bumex 1. Also one dose of albumin. Remains in sinus tachycardia. Tmax 101.3 05/01: Patient was intubated yesterday for lack of airway protection, and severe hypoxemic respiratory failure from aspiration pneumonia involving multiple lobes. Patient is on the vent lethargic, no spontaneous eye opening. Chest x- ray remains unchanged. Remains intermittently febrile Tmax 101.3. WBC count improving 05/02: Remains critically ill with no improvement in mental status. Spiking fever of 101.7. Blood culture and sputum culture with staph aureus sputum also growing GNR, WBC count 22,000 now indicating worsening sepsis. Daughter still requesting aggressive care. Palliative care is following 05/03: S/P large area dominant hemisphere CVA. No neurological improvement. Now with pneumonia (infiltrate, fever, leukocytosis) and appropriate abx coverage. She will have a hard time surviving the hip fx, CVA, and pneumonia. Palliative Care needs to be a mainstay of our plan. 05/04: No improvement in neuro status. Sputum C&S allows us to narrow abx coverage to levaquin alone. Lungs remain quite congested. Enteral nutrition tolerated. 05/05: No improvement in neuro status. Moves left arm spontaneously. Flaccid right side. Unresponsive. Persistent mild hypoglycemia - will cut levemir 50%. Abdomen more distended, check KUB. 05/06: CT head with massive left MCA infarction and > 1 cm shift in right handed woman. She opens eyes, does not track. Subjective 05/07: Patient open eyes. Attempts to respond. [place]uneian speaking. Tolerating tube feeds. Positive bowel movement. Volume overloaded. Objective Vital Signs Date Time Temp Pulse Resp B/P (MAP) Pulse Ox O2 Delivery O2 Flow Rate FiO2 05/07/17 11:31 92 60 05/07/17 06:00 96 05/07/17 04:00 98.3 15 126/81 (96) 05/06/17 19:00 Mechanical Ventilator Intake and Output 05/07/17 05/07/17 05/08/17 08:00 16:00 00:00 Intake Total 1373 ml Output Total 325 ml Balance 1048 ml Result Diagram: 05/06/17 0449 05/07/17 0421 Other Results Microbiology Date/Time Source Procedure Growth Status 04/29/17 17:05 Blood Peripheral Aerobic Blood Culture - Final NO GROWTH IN 5 DAYS Complete 04/29/17 17:05 Anaerobic Blood Culture - Final Staphylococcus Aureus Complete 04/30/17 18:00 Sputum Endotracheal Gram Stain - Final Complete 04/30/17 18:00 Sputum Culture - Final Staphylococcus Aureus Serratia Marcescens Complete 05/03/17 13:55 Urine Catheterized Urine Legionella Antigen - Final PRESUMPTIVE NEGATIVE FOR LEGIONELLA P... Complete 05/03/17 13:55 Urine Catheterized Urine Streptococcus pneumoniae Antigen (M - Final PRESUMPTIVE NEGATIVE FOR STREPTOCOCCU... Complete Imaging Last Impressions Chest X-Ray 05/07/17 0400 Signed Impressions: Service Date/Time: Sunday, May 07, 2017 04:38 - CONCLUSION: 1. Stable Low-lying ETT with tip approximately 1 cm above the vaelrie. 2. Mild interval progression of bilateral airspace consolidation exaggerated by patient rotation. 3. Increased small left pleural effusion. Alejo De La Vega MD Head CT 05/06/17 0000 Signed Impressions: Service Date/Time: Saturday, May 06, 2017 04:18 - CONCLUSION: 1. Evolving large left-sided MCA territory infarct with minimally improved [id number] subfalcine shift. 2. No intercurrent hemorrhage or other acute abnormality. Alejo De La Vega MD Abdomen X-Ray 05/06/17 0000 Signed Impressions: Service Date/Time: Saturday, May 06, 2017 17:42 - CONCLUSION: Dobbhoff feeding tube tip near the gastroduodenal junction. Obdulio Simms MD Hip and Pelvis X-Ray 05/05/17 0000 Signed Impressions: Service Date/Time: Friday, May 05, 2017 10:59 - CONCLUSION: Left proximal femur trochanteric/subtrochanteric fracture lucency visualized. Postoperative changes. Choco Mustafa MD Chest CT 04/30/17 0000 Signed Impressions: Service Date/Time: Sunday, April 30, 2017 09:20 - CONCLUSION: 1. Bilateral pulmonary infiltrates more pronounced within the lower lobes with tiny bilateral pleural effusions. Material seen filling the lower lobe bronchi bilaterally either related to purulent material or perhaps mucus plugging. Deangelo Wren Jr., MD Carotid Artery Ultrasound 04/24/17 0000 Signed Impressions: Service Date/Time: April 09:45 - CONCLUSION: 1. No hemodynamically significant carotid artery stenosis. Arnie Middleton MD Hip X-Ray 04/21/17 0000 Signed Impressions: Service Date/Time: Friday, April 21, 2017 11:36 - CONCLUSION: Fluoroscopic images during placement of intramedullary siomara left femur. Benja Ramsey MD Objective Remarks Gen: 76-year-old female, critically ill currently orotracheally intubated HEENT: Pallor present. Moderate dark ET tube secretions Neck: No JVD, orally intubated. Chest/pulmonary: Diffuse rhonchorous breath sounds bilaterally anterior- posterior. Diminished in bases. Cardiovascular: RRR. S1, S2 no S4 without murmur GI/abdomen: Distended. Nontender. Hypoactive bowel sounds are present. Extremities: Warm bilaterally, no edema. Incision sites over left hip, thigh ORIF site clean dry and intact. No fluctuation or induration Neuro: Intubated on no sedation. Spontaneous eye opening, stares to left, does not track. Dense right hemiplegia noted. Localizes with left upper extremity, Withdraws LLE. No change. Pupils 2 mm, react. Urinary Catheter: Yes Assessment to: Continue Date of Insertion: May 02, 2017 Vascular Central Line Catheter: No Assessment to: Continue A/P Assessment and Plan Neuro/Psych: Left MCA CVA - 12 mm of [id number] subfalcine herniation - right-sided hemiplegia Acute encephalopathy History CVA Follow neuro status closely. Continue Aspirin 325 mg by mouth daily Patient was not a candidate for thrombolysis per discussion with neurology and radiology. Repeat head CT 05/05 showed slight improvement in the midline shift and mass effect Neurosurgery consulted 04/30- Dr. López, recommended conservative management Neurology following - Dr. Malave On morphine 1-2 every 3 hours when necessary pain Cardiovascular: Hypertension IV hydration, on LR at 75 cc now As needed Antihypertensives to keep systolic blood pressure less than to 180 mmHg Echocardiogram 8/24 - EF 50 to 55%. Mild concentric LVH. Pulmonary: Acute hypoxic respiratory failure - aspiration possible [facility]450// Ventilator bundle Ipratropium/albuterol aerosols every 6 hours with albuterol aerosols every 2 hours. Dyspnea Intubated on 04/30/17 for worsening hypoxemic respiratory failure, aspiration pneumonia Chest x-ray shows increasing bilateral infiltrates and increasing white count secondary to worsening sepsis, sputum culture with staph aureus and Serratia CT of the chest 04/30/17 showed severe bibasilar consolidation, and evidence of aspiration GI/liver: Elevated transaminases Hypoalbuminemia Moderate to severe protein calorie malnutrition Dobbhoff for tube feedings and medications. Continue tube feeding with Glucerna 1.5 goal 45 cc an hour Lansoprazole 30 mg daily for GI regimen Docusate sodium 100 twice a day, Senokot 8.6 twice a day, polyethylene glycol 17 grams twice a day and lactulose 30 cc 4 times a day Evaluate CT abdomen/pelvis specifically liver with regards elevated alkaline phosphatase/transaminases. Avoid hepatotoxic drugs Endocrine: Diabetes mellitus Detemir 15 units subcutaneous every 12 hours Sliding scale insulin Accu-Cheks to maintain euglycemia/low regimen Holding glimepiride 4 mill grams by mouth daily /Renal: Strict intake output, monitor and replete electrolytes, follow BUN/creatinine. Leavitt catheter placed for urinary retention on 04/26. Heme: Chronic Rivaroxaban use Leukocytosis Normocytic anemia Thrombocytosis Follow CBC and coags. On subcutaneous enoxaparin ID: MSSA bacteremia Serratia/staph aureus pneumonia C glabrata UTI Currently on IV levofloxacin, by mouth metronidazole and micafungin Pertinent cultures Urine culture 04/26/17 sofie glabrata Blood culture 04/29/17 1 out of 4 bottles staph aureus Sputum culture 04/30/17 staph aureus and Serratia. Blood cultures 2, sputum 1 today. MSK: Left Intertroch Hip Fx s/p IMN - POD 14 Vitamin D deficiency WBAT DC ginger today redress with Xeroform/Primapore Prophylaxis: SCDs. Enoxaparin 40 mg sq daily-cleared by Dr. Ananda SNADS - lansoprazole Critical care Time 30 minutes Sal Carney MD May 07, 2017 12:56
[2017-05-07] MEDS ORDERED: MINERAL OIL ENEMA 118 ML BTL RECTAL ONE ×2 (13:00→16:00)
--- NOTE | 2017-05-07 13:16 | HHI.HCPN ---
Case reviewed. Patient's daughter has declined palliative care follow-up visit. Case discussed with family medicine, Dr. Camacho, palliative care physician Dr. Rivera and systems software engineer Dr. Carney. Goals of therapy remain aggressive. Palliative care will continue to follow up for emotional support and clarification of goals of care as patient's family permits. Ashly Steven May 07, 2017 13:16
[2017-05-07] MEDS ORDERED: IOHEXOL 350 MG/ML 10 ML VIAL (for RAD DIAG) IVCONTRAST ONE (13:35)
--- NOTE | 2017-05-07 13:57 | RADRPT ---
EXAM DATE/TIME: 05/07/2017 13:23 [facility] COMPARISON: CT THORAX W/O CONTRAST, April 30, 2017, 9:20. ABDOMEN KUB ONLY, May 06, 2017, 17:42. CHEST S MELANIA AP, May 07, 2017, 4:38. INDICATIONS : Abdominal distention IV CONTRAST: 60 cc Omnipaque 350 (iohexol) IV ORAL CONTRAST: No oral contrast ingested. RADIATION DOSE: 8.77 CTDIvol (mGy) MEDICAL HISTORY : Hypertension. Diabetes mellitus type 1. Cerebrovascular disease. SURGICAL HISTORY : None. ENCOUNTER: Initial ACUITY: 1 day PAIN SCALE: Non-responsive LOCATION: abdomen TECHNIQUE: Volumetric scanning of the abdomen and pelvis was performed. Using automated exposure control and ad justment of the mA and/or kV according to patient size, radiation dose was kept as low as reasonably achievable to obtain optimal diagnostic quality images. DICOM format image data is available electro nically for review and comparison. FINDINGS: LOWER LUNGS: There is a moderate-sized left pneumothorax which, on the chemistry lecturer film, tracks all the way to the left apex. Separation of visceral and parietal pleura measures 3 cm and there is collapse of the medial l eft lung. There is bilateral lower lung consolidation. Moderate-sized bilateral pleural effusions, right greater than left with the pleural effusion on the right side measuring 5.4 cm. LIVER: Homogeneous density without lesion. There is no dilation of the biliary tree. No calcified gallston es. SPLEEN: Normal size without lesion. PANCREAS: Fatty replaced pancreas. KIDNEYS: Normal in size and shape. There is no mass, stone or hydronephrosis. ADRENAL GLANDS: Within normal limits. VASCULAR: There is no aortic aneurysm. BOWEL/MESENTERY: No dilated loops of small bowel. Metallic tip feeding tube projects over the descending duodenum. M oderate amount of gas and stool throughout the colon. ABDOMINAL WALL: Significant induration and soft tissue thickening of the right lateral chest wall. There is also sub cutaneous induration about the abdominal and pelvic wall circumferentially. Asymmetric thickening of the left gluteus muscle. RETROPERITONEUM: There is no lymphadenopathy. BLADDER: No wall thickening or mass. REPRODUCTIVE: Calcified uterine fibroid on the right side with flocculent calcification measuring 5 cm. INGUINAL: There is no lymphadenopathy or hernia. MUSCULOSKELETAL: Left proximal femoral intramedullary siomara and intercalated femoral neck screw. CONCLUSION: 1. Large left pneumothorax. 2. Bilateral lower lobe consolidation and bilateral moderate size pleural effusions. 3. Significant soft tissue thickening of the right lateral chest wall and left gluteus muscle. 4. Mild ascites. The findings were called to Dr. Carney. Deangelo Zamora MD on May 07, 2017 at 13:45 Board Certified Radiologist. This report was verified electronically.
--- NOTE | 2017-05-07 13:58 | PD.ID.CON ---
History of Present Illness Service ID Consult Requested By Reason for Consult Evaluation and Mment of Sepsis, MSSA pneumonia, aspiration pna, C.glabrata CAUTI. Primary Care Physician Unknown Diagnoses: History of Present Illness Most of the history is from review of medical records. Pt intubated and s/p stroke. is a 76 y/o CF with PMHx of stroke, diabetes mellitus who was admitted with DKA and a hip fracture for which she underwent ORIF on 04/21. While in hospital recovering, patient developed altered mental status. Due to worsening mental status a stroke alert was called. Head CT showed large left MCA territory ischemic infarct with edema. Patient was transferred to the ICU by family medicine service and critical care consult was requested. At the time of evaluation in [facility], patient was opening her eyes however not following commands and had a dense right hemiplegia. Patient was also evaluated by Dr. Malave from neurology. At baseline, the patient lives with her daughter since her stroke in 2014 and does ambulate however has been having problems with memory and incontinence as well as gait difficulties. She does not feel patient would want intubation or tracheostomy or PEG tube. On 05/01/17 patient was intubated for severe hypoxemic respiratory failure from aspiration pneumonia. She also had a temp of 101 F. Blood culture and sputum culture with staph aureus sputum also growing GNR, WBC count 22,000 now indicating worsening sepsis. 05/06/[address] head with massive left MCA infarction and > 1 cm shift in right handed woman. Meanwhile patient is also being treated for C.glabrata UTI. At the time of my evaluation, patient is in [facility] on ventilator. She spontaneously opens eyes, did not follow commands for me. She underwent a CT A/ P which shows a left side pneumothorax. is placing a pigtail chest tube. She has a moser in place but no central line. ID is consulted for evaluation and Mment of Sepsis, MSSA and aspiration pneumonia, C.glabrata UTI. Review of Systems ROS Limitations: Intubated Past Family Social History Allergies: Coded Allergies: No Known Allergies (Unverified , 04/20/17) Past Medical History HTN DM CVA Past Surgical History ORIF left leg 04/21/17 Reported Medications Reported Meds & Active Scripts Active Calcium 600+D 200 (Calcium Carbonate-Vitamin D) 600-200 Mg-Unit Tab 1 Tab PO BID 30 Days Vitamin D3 (Cholecalciferol) 2,000 Unit Cap 2,000 Units PO DAILY Ergocalciferol 50,000 Unit Cap 50,000 Units PO Q7D Xarelto (Rivaroxaban) 10 Mg Tab 10 Mg PO DAILY 14 Days Hydrocodone-Acetaminophen 7.5-325 mg Tab 1 Tab PO Q4H PRN Reported Glimepiride 4 Mg Tab 4 Mg PO DAILY@1600 Take with breakfast or first main meal Active Ordered Medications Current Medications Medications (Trade) Dose Ordered Sig/Zeferino Route Start Time Stop Time Status Last Admin (Zofran Inj) 4 mg Q6H PRN IV PUSH 04/20/17 15:00 04/30/17 02:28 (Morphine Inj) 1 mg Q3H PRN IV 04/20/17 17:15 04/28/17 18:15 (Morphine Inj) 2 mg Q3H PRN IV 04/20/17 17:15 04/30/17 02:29 (Narcan Inj) 0.4 mg UNSCH PRN IV 04/20/17 17:15 (Milk Of Magnesia Liq) 30 ml Q12H PRN PO 04/20/17 20:30 (Senokot) 17.2 mg Q12H PRN PO 04/20/17 20:30 04/23/17 22:55 (Dulcolax Supp) 10 mg DAILY PRN RECTAL 04/20/17 20:30 (Oscal-D 250-125) 250 mg TID PO 04/21/17 13:00 05/07/17 12:39 (Vitamin D3) 5,000 units DAILY PO 04/22/17 09:00 05/07/17 10:30 (NS Flush) 2 ml BID IV FLUSH 04/24/17 21:00 05/06/17 09:00 (NS Flush) 2 ml UNSCH PRN IV FLUSH 04/24/17 09:30 (Glucagon Inj) 1 mg UNSCH PRN IM/SQ 04/24/17 18:15 (Aspirin) 325 mg DAILY DOBHOFF 04/27/17 09:00 05/07/17 10:29 (D50w (Syr) Inj) 25 ml UNSCH PRN IV 04/26/17 20:30 05/05/17 00:00 (Lopressor Inj) 5 mg Q5M PRN IV PUSH 04/27/17 04:00 05/03/17 18:26 Potassium Chloride 100 ml @ 50 mls/hr Q2H PRN IV 04/27/17 08:45 Potassium Chloride 100 ml @ 50 mls/hr Q2H PRN IV 04/27/17 08:45 04/27/17 16:44 (K-Lyte Cl Eff) 50 meq UNSCH PRN PO 04/27/17 08:45 Potassium Chloride 100 ml @ 25 mls/hr UNSCH PRN IV 04/27/17 08:45 05/04/17 19:07 Potassium Chloride 100 ml @ 50 mls/hr Q2H PRN IV 04/27/17 08:45 04/29/17 12:15 Magnesium Sulfate 4 gm/Sodium Chloride 100 ml @ 50 mls/hr UNSCH PRN IV 04/27/17 08:45 (Mag-Ox) 800 mg UNSCH PRN PO 04/27/17 08:45 Magnesium Sulfate 2 gm/Sodium Chloride 100 ml @ 50 mls/hr UNSCH PRN IV 04/27/17 08:45 (K-Phos) 2,000 mg Q4H PRN PO 04/27/17 08:45 04/28/17 15:38 Sodium Phosphate 30 mmol/Sodium Chloride 250 ml @ 42 mls/hr UNSCH PRN IV 04/27/17 08:45 04/27/17 23:59 (K-Phos) 2,000 mg UNSCH PRN PO/TUBE 04/27/17 08:45 Potassium Phosphate 30 mmol/ Sodium Chloride 260 ml @ 42 mls/hr UNSCH PRN IV 04/27/17 08:45 05/04/17 20:54 (NovoLOG SUPPLEMENTAL SCALE) 1 ACHS SLIDING SCALE SQ 04/28/17 16:00 05/07/17 12:41 (Flagyl) 500 mg Q8HR DOBHOFF 04/29/17 14:00 05/07/17 12:39 (Lovenox Inj) 40 mg Q24H SQ 05/01/17 08:00 05/07/17 10:43 Lactated Ringer's 1,000 ml @ 75 mls/hr [id number] IV 05/02/17 13:00 05/07/17 05:57 Levofloxacin/ Dextrose 150 ml @ 100 mls/hr Q24H IV 05/04/17 09:00 05/07/17 10:29 (Duoneb Neb) 1 ampule Q6HR NEB NEB 05/05/17 10:00 05/07/17 08:09 (Albuterol Neb) 2.5 mg Q2HR NEB PRN NEB 05/07/17 12:30 UNV (Bumex Inj) 1 mg ONCE ONCE IV PUSH 05/07/17 12:30 05/07/17 12:31 UNV (Zaroxolyn) 2.5 mg ONCE ONCE PO 05/07/17 12:30 05/07/17 12:31 UNV (KCl Powder) 20 meq ONCE ONCE PO 05/07/17 12:30 05/07/17 12:31 UNV (Colace Liq) 100 mg Q12HR PO 05/07/17 21:00 UNV (Senna Liq) 8.8 mg BID OG-TUBE 05/07/17 21:00 UNV (Lactulose Liq) 30 ml QID PO 05/07/17 13:00 UNV (Miralax) 17 gm BID OG-TUBE 05/07/17 21:00 UNV (Fleet Mineral Oil Enema) 118 ml ONCE ONCE RECTAL 05/07/17 13:00 05/07/17 13:01 UNV (Kondremul Liq) 30 ml ONCE ONCE PO 05/07/17 13:00 05/07/17 13:01 UNV (Relistor Inj) 12 mg ONCE ONCE SQ 05/07/17 13:00 05/07/17 13:01 UNV (Albuterol Neb) 2.5 mg Q2HR NEB PRN NEB 05/07/17 13:00 UNV (Prevacid Odt) 30 mg DAILY NG 05/08/17 09:00 UNV (Levemir Inj) 15 units Q12H SQ 05/07/17 21:00 UNV Family History reviewed. Social History Lives with her daughter. Has a Green card, is of [place] origin. Physical Exam Vital Signs Vital Signs Date Time Temp Pulse Resp B/P (MAP) Pulse Ox O2 Delivery O2 Flow Rate FiO2 05/07/17 11:31 92 60 05/07/17 08:10 100 60 05/07/17 06:00 96 05/07/17 04:03 96 70 05/07/17 04:00 98.3 106 15 126/81 (96) 97 05/07/17 04:00 70 05/07/17 04:00 106 05/07/17 02:00 105 05/07/17 01:26 94 70 05/07/17 00:00 80 05/07/17 00:00 104 05/07/17 00:00 97.6 104 24 111/76 (88) 94 05/06/17 22:00 98 05/06/17 20:01 95 70 05/06/17 20:00 98.6 90 14 129/65 (86) 95 05/06/17 20:00 90 05/06/17 20:00 70 05/06/17 19:00 94 Mechanical Ventilator 70 05/06/17 18:00 89 05/06/17 16:00 88 05/06/17 16:00 98.7 88 23 119/61 (80) 94 05/06/17 16:00 96 50 05/06/17 16:00 50 05/06/17 14:00 84 Physical Exam GENERAL: Obese, well-developed patient, in no apparent distress. SKIN: No rashes, ecchymoses or lesions. Cool and dry. HEAD: Atraumatic. Normocephalic. No temporal or scalp tenderness. EYES: Pupils equal round and reactive. Extraocular motions intact. No scleral icterus. No injection or drainage. ENT: Nose without bleeding, purulent drainage or septal hematoma. Throat without erythema, tonsillar hypertrophy or exudate. Uvula midline. Airway patent. NECK: Trachea midline. Supple, nontender, no meningeal signs. CARDIOVASCULAR: Regular rate and rhythm without murmurs, gallops, or rubs. RESPIRATORY: Clear to auscultation. Breath sounds equal bilaterally. GASTROINTESTINAL: Abdomen soft, distended. No tenderness in RUQ noted or any quadrants noted. MUSCULOSKELETAL: Pedal edema. Generalized anasarca. NEUROLOGICAL: Right hemiplegia. Psych: could not be assessed. IV line sites with no e.o infection. Laboratory Laboratory Tests Test 05/07/17 04:21 05/07/17 06:05 Blood Urea Nitrogen 36 Creatinine 0.37 Random Glucose 239 Total Protein 5.1 Albumin 1.5 Calcium Level 7.7 Alkaline Phosphatase 1931 Aspartate Amino Transf (AST/SGOT) 217 Alanine Aminotransferase (ALT/SGPT) 55 Gamma Glutamyl Transpeptidase 787 Total Bilirubin 1.2 Direct Bilirubin 0.8 Sodium Level 145 Potassium Level 3.9 Chloride Level 109 Carbon Dioxide Level 27.8 Anion Gap 8 Estimat Glomerular Filtration Rate 171 Indirect Bilirubin 0.4 Blood Gas Puncture Site RT RADIAL Blood Gas Patient Temperature 98.6 Blood Gas HCO3 27 Blood Gas Base Excess 3.1 Blood Gas Oxygen Saturation 95 Arterial Blood pH 7.48 Arterial Blood Partial Pressure CO2 36 Arterial Blood Partial Pressure O2 94 Arterial Blood Oxygen Content 13.4 Arterial Blood Carboxyhemoglobin 1.6 Arterial Blood Methemoglobin 0.7 Blood Gas Hemoglobin 9.9 Oxygen Delivery Device VENTILATOR Blood Gas Ventilator Setting SEE COMMENTS Blood Gas Inspired Oxygen 70 Date/Time Source Procedure Growth Status 04/29/17 17:05 Blood Peripheral Aerobic Blood Culture - Final NO GROWTH IN 5 DAYS Complete 04/29/17 17:05 Anaerobic Blood Culture - Final Staphylococcus Aureus Complete 04/30/17 18:00 Sputum Endotracheal Gram Stain - Final Complete 04/30/17 18:00 Sputum Culture - Final Staphylococcus Aureus Serratia Marcescens Complete 05/03/17 13:55 Urine Catheterized Urine Legionella Antigen - Final PRESUMPTIVE NEGATIVE FOR LEGIONELLA P... Complete 05/03/17 13:55 Urine Catheterized Urine Streptococcus pneumoniae Antigen (M - Final PRESUMPTIVE NEGATIVE FOR STREPTOCOCCU... Complete Result Diagram: 05/06/17 0449 05/07/17 0421 Imaging Last Impressions Chest X-Ray 05/07/17 0400 Signed Impressions: Service Date/Time: Sunday, May 07, 2017 04:38 - CONCLUSION: 1. Stable Low-lying ETT with tip approximately 1 cm above the valerie. 2. Mild interval progression of bilateral airspace consolidation exaggerated by patient rotation. 3. Increased small left pleural effusion. Alejo De La Vega MD Abdomen/Pelvis CT 05/07/17 0000 Signed Impressions: Service Date/Time: Sunday, May 07, 2017 13:23 - CONCLUSION: 1. Large left pneumothorax. 2. Bilateral lower lobe consolidation and bilateral moderate size pleural effusions. 3. Significant soft tissue thickening of the right lateral chest wall and left gluteus muscle. 4. Mild ascites. The findings were called to Dr. Carney. Deangelo Zamora MD Head CT 05/06/17 0000 Signed Impressions: Service Date/Time: Saturday, May 06, 2017 04:18 - CONCLUSION: 1. Evolving large left-sided MCA territory infarct with minimally improved [id number] subfalcine shift. 2. No intercurrent hemorrhage or other acute abnormality. Alejo De La Vega MD Abdomen X-Ray 05/06/17 0000 Signed Impressions: Service Date/Time: Saturday, May 06, 2017 17:42 - CONCLUSION: Dobbhoff feeding tube tip near the gastroduodenal junction. Obdulio Simms MD Hip and Pelvis X-Ray 05/05/17 0000 Signed Impressions: Service Date/Time: Friday, May 05, 2017 10:59 - CONCLUSION: Left proximal femur trochanteric/subtrochanteric fracture lucency visualized. Postoperative changes. Choco Mustafa MD Chest CT 04/30/17 0000 Signed Impressions: Service Date/Time: Sunday, April 30, 2017 09:20 - CONCLUSION: 1. Bilateral pulmonary infiltrates more pronounced within the lower lobes with tiny bilateral pleural effusions. Material seen filling the lower lobe bronchi bilaterally either related to purulent material or perhaps mucus plugging. Deangelo Wren Jr., MD Carotid Artery Ultrasound 04/24/17 0000 Signed Impressions: Service Date/Time: April 09:45 - CONCLUSION: 1. No hemodynamically significant carotid artery stenosis. Arnie Middleton MD Hip X-Ray 04/21/17 0000 Signed Impressions: Service Date/Time: Friday, April 21, 2017 11:36 - CONCLUSION: Fluoroscopic images during placement of intramedullary siomara left femur. Benja Ramsey MD Assessment and Plan Assessment and Plan Sepsis MSSA and aspiration pneumonia. C.glabrata Cath associated UTI. Possible cholecystitis (increased WBC, Abnormal LFTs, increased GGT) Left pneumothorax plan on pigtail cath today. Abnormal LFTs: Cholecystitis, Micafungin IV, flagyl Left MCA infarction Recs: Continue Levaquin DC Micafungin IV Continue oral flagyl for now. Change moser UA from new moser. US Gall bladder (cholecystitis: calculous or acalculous) D/w and RN. Jane Saleh MD May 07, 2017 13:58
[2017-05-07] MEDS ORDERED: MIDAZOLAM HCL 5 MG/ML VIAL (1 ML) ONE (14:18)
--- NOTE | 2017-05-07 14:47 | PD.PROCEDR ---
Procedure Note Procedure Date of procedure: 05/07/2017 Procedure: Left chest tube placement Indication: Left pneumothorax Details of procedure: Informed consent was obtained from the daughter. The patient was laid supine. The lateral chest wall was cleaned with ChloraPrep twice. Regional sterile drapes were applied. 1% lidocaine was used for local anesthesia and injected into the subcutaneous and deep muscle tissues. A 0.5 cm skin incision was made with a scalpel blade. An insertion needle was placed in inserted above rib. A size 10 Ghanaian chest tube was inserted with a Polina clamp into the pleural cavity and directed toward the apical posterior region. 2-0 silk was used to close the wound and to secure the chest tube. A sterile Vaseline gauze dressing was applied. The chest tube was connected to a Pleur-evac drainage system. There was no air leak. There was 100 cc tracy clear output from the chest tube. Estimated blood loss: Minimal Complications: None. Stat chest x-ray pending at time of dictation. Sal Carney MD May 07, 2017 14:47
[2017-05-07] MEDS ORDERED: METHYLNALTREXONE BROMIDE 12 MG/0.6 ML VIAL SQ ONE (15:00)
[2017-05-07] MEDS ORDERED: POTASSIUM CHLORIDE 20 MEQ PWD PACKET PO ONE (15:00)
[2017-05-07] MEDS ORDERED: BUMETANIDE INJ 1 MG/4 ML VIAL IV PUSH ONE (15:00)
[2017-05-07] MEDS ORDERED: METOLAZONE 2.5 MG TAB PO ONE (15:30)
[2017-05-07] MEDS ORDERED: MINERAL OIL LIQUID 30 ML CUP PO ONE (16:00)
--- NOTE | 2017-05-07 16:49 | RADRPT ---
EXAM DATE/TIME: 05/07/2017 15:51 [place] COMPARISON: CHEST SINGLE AP, May 07, 2017, 4:38. INDICATIONS : Left chest tube placement. MEDICAL HISTORY : Stroke. Hypertension Diabetes SURGICAL HISTORY : Hip surgery. ENCOUNTER: Initial ACUITY: 2 weeks PAIN SCORE: Non-responsive. LOCATION: Bilateral chest FINDINGS: A small left chest tube has been placed. There is a resolution of the previously noted pneumothorax. There is some subcutaneous emphysema adjacent to the chest tube. The endotracheal tube and Dobhoff tube are stable. The heart is mildly prominent. Scattered infiltrates are unchanged bilaterally. CONCLUSION: 1. Resolution of the previously noted left pneumothorax status post placement of small chest tube. S ome subcutaneous emphysema is noted within the left chest wall. 2. Stable scattered pulmonary infiltrates bilaterally. 3. Cardiomegaly. 4. Indwelling tubes are stable. Enzo Farooq MD on May 07, 2017 at 16:37 Board Certified Radiologist. This report was verified electronically.
[2017-05-07] MEDS ORDERED: MIDAZOLAM HCL 2 MG/2 ML VIAL IV ONE (17:15)
--- NOTE | 2017-05-07 17:17 | HHI.PR ---
Review/Management Diagnosis large left MCA stroke-exam improved today Diagnosis/Plan: Subjective Subjective Comments No acute events reported Active Medications Current Medications Medications (Trade) Dose Ordered Sig/Zeferino Route Start Time Stop Time Status Last Admin (Zofran Inj) 4 mg Q6H PRN IV PUSH 04/20/17 15:00 04/30/17 02:28 (Morphine Inj) 1 mg Q3H PRN IV 04/20/17 17:15 04/28/17 18:15 (Morphine Inj) 2 mg Q3H PRN IV 04/20/17 17:15 04/30/17 02:29 (Narcan Inj) 0.4 mg UNSCH PRN IV 04/20/17 17:15 (Milk Of Magnesia Liq) 30 ml Q12H PRN PO 04/20/17 20:30 (Senokot) 17.2 mg Q12H PRN PO 04/20/17 20:30 04/23/17 22:55 (Dulcolax Supp) 10 mg DAILY PRN RECTAL 04/20/17 20:30 (Oscal-D 250-125) 250 mg TID PO 04/21/17 13:00 05/07/17 16:37 (Vitamin D3) 5,000 units DAILY PO 04/22/17 09:00 05/07/17 10:30 (NS Flush) 2 ml BID IV FLUSH 04/24/17 21:00 05/06/17 09:00 (NS Flush) 2 ml UNSCH PRN IV FLUSH 04/24/17 09:30 (Glucagon Inj) 1 mg UNSCH PRN IM/SQ 04/24/17 18:15 (Aspirin) 325 mg DAILY DOBHOFF 04/27/17 09:00 05/07/17 10:29 (D50w (Syr) Inj) 25 ml UNSCH PRN IV 04/26/17 20:30 05/05/17 00:00 (Lopressor Inj) 5 mg Q5M PRN IV PUSH 04/27/17 04:00 05/03/17 18:26 Potassium Chloride 100 ml @ 50 mls/hr Q2H PRN IV 04/27/17 08:45 Potassium Chloride 100 ml @ 50 mls/hr Q2H PRN IV 04/27/17 08:45 04/27/17 16:44 (K-Lyte Cl Eff) 50 meq UNSCH PRN PO 04/27/17 08:45 Potassium Chloride 100 ml @ 25 mls/hr UNSCH PRN IV 04/27/17 08:45 05/04/17 19:07 Potassium Chloride 100 ml @ 50 mls/hr Q2H PRN IV 04/27/17 08:45 04/29/17 12:15 Magnesium Sulfate 4 gm/Sodium Chloride 100 ml @ 50 mls/hr UNSCH PRN IV 04/27/17 08:45 (Mag-Ox) 800 mg UNSCH PRN PO 04/27/17 08:45 Magnesium Sulfate 2 gm/Sodium Chloride 100 ml @ 50 mls/hr UNSCH PRN IV 04/27/17 08:45 (K-Phos) 2,000 mg Q4H PRN PO 04/27/17 08:45 04/28/17 15:38 Sodium Phosphate 30 mmol/Sodium Chloride 250 ml @ 42 mls/hr UNSCH PRN IV 04/27/17 08:45 04/27/17 23:59 (K-Phos) 2,000 mg UNSCH PRN PO/TUBE 04/27/17 08:45 Potassium Phosphate 30 mmol/ Sodium Chloride 260 ml @ 42 mls/hr UNSCH PRN IV 04/27/17 08:45 05/04/17 20:54 (NovoLOG SUPPLEMENTAL SCALE) 1 ACHS SLIDING SCALE SQ 04/28/17 16:00 05/07/17 12:41 (Flagyl) 500 mg Q8HR DOBHOFF 04/29/17 14:00 05/07/17 12:39 (Lovenox Inj) 40 mg Q24H SQ 05/01/17 08:00 05/07/17 10:43 Levofloxacin/ Dextrose 150 ml @ 100 mls/hr Q24H IV 05/04/17 09:00 05/07/17 10:29 (Duoneb Neb) 1 ampule Q6HR NEB NEB 05/05/17 10:00 05/07/17 15:49 (Colace Liq) 100 mg Q12HR PO 05/07/17 21:00 (Senna Liq) 8.8 mg BID OG-TUBE 05/07/17 21:00 (Lactulose Liq) 30 ml QID PO 05/07/17 18:00 05/07/17 16:35 (Miralax) 17 gm BID OG-TUBE 05/07/17 21:00 (Albuterol Neb) 2.5 mg Q2HR NEB PRN NEB 05/07/17 13:00 (Prevacid Odt) 30 mg DAILY NG 05/08/17 09:00 (Levemir Inj) 15 units Q12H SQ 05/07/17 21:00 Allergies Allergies Coded Allergies No Known Allergies (Unverified04/20/17) Review of Systems All other ROS: Unable to obtain Exam I&O / VS Vital Signs Date Time Temp Pulse Resp B/P (MAP) Pulse Ox O2 Delivery O2 Flow Rate FiO2 05/07/17 15:49 98 60 05/07/17 13:05 100 100 05/07/17 11:31 92 60 05/07/17 08:10 100 60 05/07/17 06:00 96 05/07/17 04:03 96 70 05/07/17 04:00 98.3 106 15 126/81 (96) 97 05/07/17 04:00 70 05/07/17 04:00 106 05/07/17 02:00 105 05/07/17 01:26 94 70 05/07/17 00:00 80 05/07/17 00:00 104 05/07/17 00:00 97.6 104 24 111/76 (88) 94 05/06/17 22:00 98 05/06/17 20:01 95 70 05/06/17 20:00 98.6 90 14 129/65 (86) 95 05/06/17 20:00 90 05/06/17 20:00 70 05/06/17 19:00 94 Mechanical Ventilator 70 05/06/17 18:00 89 Cardiology: Normal rate (Tachycardic) Musculoskeletal: ROM (within normal limits) Exam Comments Intubated, more alert and follows commands. CN--EOM--intact.. PERRL, Right upper motor neuron CN 7 palsey. MOTOR--clip riveter on left , no cow trimmer on right Objective Micro and Labs Laboratory Tests Test 05/07/17 04:21 05/07/17 06:05 Blood Urea Nitrogen 36 Creatinine 0.37 Random Glucose 239 Total Protein 5.1 Albumin 1.5 Calcium Level 7.7 Alkaline Phosphatase 1931 Aspartate Amino Transf (AST/SGOT) 217 Alanine Aminotransferase (ALT/SGPT) 55 Gamma Glutamyl Transpeptidase 787 Total Bilirubin 1.2 Direct Bilirubin 0.8 Sodium Level 145 Potassium Level 3.9 Chloride Level 109 Carbon Dioxide Level 27.8 Anion Gap 8 Estimat Glomerular Filtration Rate 171 Indirect Bilirubin 0.4 Blood Gas Puncture Site RT RADIAL Blood Gas Patient Temperature 98.6 Blood Gas HCO3 27 Blood Gas Base Excess 3.1 Blood Gas Oxygen Saturation 95 Arterial Blood pH 7.48 Arterial Blood Partial Pressure CO2 36 Arterial Blood Partial Pressure O2 94 Arterial Blood Oxygen Content 13.4 Arterial Blood Carboxyhemoglobin 1.6 Arterial Blood Methemoglobin 0.7 Blood Gas Hemoglobin 9.9 Oxygen Delivery Device VENTILATOR Blood Gas Ventilator Setting SEE COMMENTS Blood Gas Inspired Oxygen 70 Date/Time Source Procedure Growth Status 04/29/17 17:05 Blood Peripheral Aerobic Blood Culture - Final NO GROWTH IN 5 DAYS Complete 04/29/17 17:05 Anaerobic Blood Culture - Final Staphylococcus Aureus Complete 04/30/17 18:00 Sputum Endotracheal Gram Stain - Final Complete 04/30/17 18:00 Sputum Culture - Final Staphylococcus Aureus Serratia Marcescens Complete 05/03/17 13:55 Urine Catheterized Urine Legionella Antigen - Final PRESUMPTIVE NEGATIVE FOR LEGIONELLA P... Complete 05/03/17 13:55 Urine Catheterized Urine Streptococcus pneumoniae Antigen (M - Final PRESUMPTIVE NEGATIVE FOR STREPTOCOCCU... Complete Marcio Malave PhD May 07, 2017 17:17
--- NOTE | 2017-05-07 18:28 | HHI.FPPN ---
Subjective Remarks Ms Hein is opening her eyes today intermittently with little interval change. CT scan was performed after 1PM today indicating large left lung pneumothorax which was treated with a chest tube. S/p chest tube, she is awake and more interactive; however, abdominal distension persists. Dr Carney states he spoke to her daughter at length today about her condition. (Chuy Camacho MD R1) Objective Vitals Vital Signs Date Time Temp Pulse Resp B/P (MAP) Pulse Ox O2 Delivery O2 Flow Rate FiO2 05/07/17 15:49 98 60 05/07/17 13:05 100 100 05/07/17 11:31 92 60 05/07/17 08:10 100 60 05/07/17 06:00 96 05/07/17 04:03 96 70 05/07/17 04:00 98.3 106 15 126/81 (96) 97 05/07/17 04:00 70 05/07/17 04:00 106 05/07/17 02:00 105 05/07/17 01:26 94 70 05/07/17 00:00 80 05/07/17 00:00 104 05/07/17 00:00 97.6 104 24 111/76 (88) 94 05/06/17 22:00 98 05/06/17 20:01 95 70 05/06/17 20:00 98.6 90 14 129/65 (86) 95 05/06/17 20:00 90 05/06/17 20:00 70 05/06/17 19:00 94 Mechanical Ventilator 70 I/O 05/06/17 05/06/17 05/06/17 05/07/17 05/07/17 05/07/17 07:00 15:00 23:00 07:00 15:00 23:00 Intake Total 945 ml 2060 ml 1373 ml Output Total 300 ml 350 ml 325 ml Balance 645 ml 1710 ml 1048 ml IV Total 679 ml 2060 ml 816 ml Tube Feeding 146 ml 437 ml Other 120 ml 120 ml Output Urine Total 300 ml 350 ml 325 ml # Bowel Movements 1 2 1 (Chuy Camacho MD R1) Result Diagram: 05/06/17 0449 05/07/17420 Imaging Last Impressions Chest X-Ray 05/07/17 040 Signed Impressions: Service Date/Time: Sunday, May 07, 2017 04:38 - CONCLUSION: 1. Stable Low-lying ETT with tip approximately 1 cm above the valerie. 2. Mild interval progression of bilateral airspace consolidation exaggerated by patient rotation. 3. Increased small left pleural effusion. Alejo De La Vega MD Abdomen/Pelvis CT 05/07/17 0000 Signed Impressions: Service Date/Time: Sunday, May 07, 2017 13:23 - CONCLUSION: 1. Large left pneumothorax. 2. Bilateral lower lobe consolidation and bilateral moderate size pleural effusions. 3. Significant soft tissue thickening of the right lateral chest wall and left gluteus muscle. 4. Mild ascites. The findings were called to Dr. Carney. Deangelo Zamora MD Head CT 05/06/17 0000 Signed Impressions: Service Date/Time: Saturday, May 06, 2017 04:18 - CONCLUSION: 1. Evolving large left-sided MCA territory infarct with minimally improved dzex-pu-[id number] subfalcine shift. 2. No intercurrent hemorrhage or other acute abnormality. Alejo De La Vega MD Abdomen X-Ray 05/06/17 0000 Signed Impressions: Service Date/Time: Saturday, May 06, 2017 17:42 - CONCLUSION: Dobbhoff feeding tube tip near the gastroduodenal junction. Obdulio Simms MD Hip and Pelvis X-Ray 05/05/17 0000 Signed Impressions: Service Date/Time: Friday, May 05, 2017 10:59 - CONCLUSION: Left proximal femur trochanteric/subtrochanteric fracture lucency visualized. Postoperative changes. Choco Mustafa MD Chest CT 04/30/17 0000 Signed Impressions: Service Date/Time: Sunday, April 30, 2017 09:20 - CONCLUSION: 1. Bilateral pulmonary infiltrates more pronounced within the lower lobes with tiny bilateral pleural effusions. Material seen filling the lower lobe bronchi bilaterally either related to purulent material or perhaps mucus plugging. Deangelo Wren Jr., MD Carotid Artery Ultrasound 04/24/17 0000 Signed Impressions: Service Date/Time: April 09:45 - CONCLUSION: 1. No hemodynamically significant carotid artery stenosis. Arnie Middleton MD Hip X-Ray 04/21/17 0000 Signed Impressions: Service Date/Time: Friday, April 21, 2017 11:36 - CONCLUSION: Fluoroscopic images during placement of intramedullary siomara left femur. Benja Ramsey MD Objective Remarks CONSTITUTIONAL/GEN: Nonverbal, lying in bed. Intubated, sedated, and on ventilator, receiving tube feeds. Opens eyes intermittently. LUNGS: coarse breath sounds throughout CARDIOVASCULAR: Regular rate and rhythm without murmur or gallop. GI/ABD: distended and tense without masses, without organomegaly. NEURO: Intubated and sedated with eyes open and some looking around with minimal neck movement. MUSC: Bandages on lateral left hip and thigh are clean dry and intact. SCDs on bilateral lower extremities. Pedal pulses weak. SKIN: cellulitis on bilateral UEs resolving; cool and dry LEs bilaterally. Procedures ORIF 04/21/17 Intubation 04/30/17 Medications and IVs Current Medications Medications (Trade) Dose Ordered Sig/Zeferino Route Start Time Stop Time Status Last Admin (Zofran Inj) 4 mg Q6H PRN IV PUSH 04/20/17 15:00 04/30/17 02:28 (Morphine Inj) 1 mg Q3H PRN IV 04/20/17 17:15 04/28/17 18:15 (Morphine Inj) 2 mg Q3H PRN IV 04/20/17 17:15 04/30/17 02:29 (Narcan Inj) 0.4 mg UNSCH PRN IV 04/20/17 17:15 (Milk Of Magnesia Liq) 30 ml Q12H PRN PO 04/20/17 20:30 (Senokot) 17.2 mg Q12H PRN PO 04/20/17 20:30 04/23/17 22:55 (Dulcolax Supp) 10 mg DAILY PRN RECTAL 04/20/17 20:30 (Oscal-D 250-125) 250 mg TID PO 04/21/17 13:00 05/07/17 16:37 (Vitamin D3) 5,000 units DAILY PO 04/22/17 09:00 05/07/17 10:30 (NS Flush) 2 ml BID IV FLUSH 04/24/17 21:00 05/06/17 09:00 (NS Flush) 2 ml UNSCH PRN IV FLUSH 04/24/17 09:30 (Glucagon Inj) 1 mg UNSCH PRN IM/SQ 04/24/17 18:15 (Aspirin) 325 mg DAILY DOBHOFF 04/27/17 09:00 05/07/17 10:29 (D50w (Syr) Inj) 25 ml UNSCH PRN IV 04/26/17 20:30 05/05/17 00:00 (Lopressor Inj) 5 mg Q5M PRN IV PUSH 04/27/17 04:00 05/03/17 18:26 Potassium Chloride 100 ml @ 50 mls/hr Q2H PRN IV 04/27/17 08:45 Potassium Chloride 100 ml @ 50 mls/hr Q2H PRN IV 04/27/17 08:45 04/27/17 16:44 (K-Lyte Cl Eff) 50 meq UNSCH PRN PO 04/27/17 08:45 Potassium Chloride 100 ml @ 25 mls/hr UNSCH PRN IV 04/27/17 08:45 05/04/17 19:07 Potassium Chloride 100 ml @ 50 mls/hr Q2H PRN IV 04/27/17 08:45 04/29/17 12:15 Magnesium Sulfate 4 gm/Sodium Chloride 100 ml @ 50 mls/hr UNSCH PRN IV 04/27/17 08:45 (Mag-Ox) 800 mg UNSCH PRN PO 04/27/17 08:45 Magnesium Sulfate 2 gm/Sodium Chloride 100 ml @ 50 mls/hr UNSCH PRN IV 04/27/17 08:45 (K-Phos) 2,000 mg Q4H PRN PO 04/27/17 08:45 04/28/17 15:38 Sodium Phosphate 30 mmol/Sodium Chloride 250 ml @ 42 mls/hr UNSCH PRN IV 04/27/17 08:45 04/27/17 23:59 (K-Phos) 2,000 mg UNSCH PRN PO/TUBE 04/27/17 08:45 Potassium Phosphate 30 mmol/ Sodium Chloride 260 ml @ 42 mls/hr UNSCH PRN IV 04/27/17 08:45 05/04/17 20:54 (NovoLOG SUPPLEMENTAL SCALE) 1 ACHS SLIDING SCALE SQ 04/28/17 16:00 05/07/17 17:59 (Flagyl) 500 mg Q8HR DOBHOFF 04/29/17 14:00 05/07/17 12:39 (Lovenox Inj) 40 mg Q24H SQ 05/01/17 08:00 05/07/17 10:43 Levofloxacin/ Dextrose 150 ml @ 100 mls/hr Q24H IV 05/04/17 09:00 05/07/17 10:29 (Duoneb Neb) 1 ampule Q6HR NEB NEB 05/05/17 10:00 05/07/17 15:49 (Colace Liq) 100 mg Q12HR PO 05/07/17 21:00 (Senna Liq) 8.8 mg BID OG-TUBE 05/07/17 21:00 (Lactulose Liq) 30 ml QID PO 05/07/17 18:00 05/07/17 16:35 (Miralax) 17 gm BID OG-TUBE 05/07/17 21:00 (Albuterol Neb) 2.5 mg Q2HR NEB PRN NEB 05/07/17 13:00 (Prevacid Odt) 30 mg DAILY NG 05/08/17 09:00 (Levemir Inj) 15 units Q12H SQ 05/07/17 21:00 (Chuy Camacho MD R1) Urinary Catheter: Yes Leavitt insert reason: Prolonged Immobilization Date of Insertion: May 02, 2017 (Chuy Camacho MD R1) A/P Assessment and Plan 76 y/o female with HTN, DM, CVA admitted for DKA and hip fracture. Now with massive left MCA stroke, right hemiplegia and midline shift resolving. Neuro and trademark affixer consulted. Working with palliative care and family for goals of care. Today (05/07) CT abdomen/pelvis shows large pneumothorax on left side decompressed with chest tube. -Overall poor prognosis, pursuing goals of care discussion with daughter (HCPOA) , but at this time; daughter wishes continued intervention Discharge Planning Pending stroke progression and discussion for goals of care (Chuy Camacho MD R1) Attending Attestation Patient seen and examined. Case reviewed and discussed Agree with plan of care as discussed with me and documented in the resident note. (Angélica Malik MD) Problem List: (1) Acute CVA (cerebrovascular accident) ICD Codes: I63.9 - Cerebral infarction, unspecified Status: Acute Plan: Patient found minimally responsive with neurological deficits around 0820 04/24. Stat CT of head was ordered, which showed large left MCA infarct. Diffuse edema throughout the left MCA distribution, suggest completed infarct. This was discussed and was not a candidate for intracranial intervention. CT (04/30): Reduction in midline shift to 11mm. Unchanged large left MCA infarction. CT head (05/06) shows: Evolving large left-sided MCA territory infarct with minimally improved [id number]-fe-[id number] subfalcine shift. No intercurrent hemorrhage or other acute abnormality. Echocardiogram- The left ventricular systolic function is low normal with an estimated ejection fraction in the range of 50-55%. Mild concentric left ventricular hypertrophy. Normal left ventricular size. Bzehc-tv-[id number] mitral valve regurgitation. Carotid Artery US- No hemodynamically significant carotid stenosis -Consulted trademark affixer, appreciate recs -Intubated/sedated; does not recommend tracheostomy -IV hydration, watch for hypotension. -Keep systolic to less than 220 -Lactated Ringer's reduced to 75 ml/hr -Poor prognosis -Neurosurgery consulted -Recommended conservative management -Keep Na in 145-154 range -Tube feeds: Glucerna 1.5 mLs for diet via Dobbhoff tube -Mileage Clerk consult for management and recs -Consult palliative care-appreciate recs -Case discussed with daughter in-person about goals of care, limited treatment options, and poor prognosis. -Daughter continues to want aggressive care. Wishes to continue aggressive medical treatment despite prognosis -Neurology consulted-appreciate recs -Rectal ASA -Lovenox 40mg daily 05/07 - no interval change. Opens eyes intermittently (2) Sepsis ICD Codes: A41.9 - Sepsis, unspecified organism Status: Acute Plan: Pt meets SIRS criteria 04/30. On 05/06, afebrile and VSS, but WBC elevated to 22.1, increased since 05/05 (20.6) Source of infection, likely pulmonary vs urinary -See antibiotics as below -Culture results as below -Monitor vitals (3) HCAP (healthcare-associated pneumonia) ICD Codes: J18.9 - Pneumonia, unspecified organism Status: Acute Plan: Chest CT (04/30): Bilateral pulmonary infiltrates more pronounced within lower lobes with b/l pleural effusions. Material in lower lobe bronchi b/l, purulent or mucus plugging CXR 05/02: Increased airspace opacity bilaterally. The pattern may represent pulmonary edema. There is likely a left pleural effusion. Suspect possible HCAP. Slightly decreased leukocytosis at 20.6 on 05/05 and afebrile. Possible aspiration -Levaquin IV (05/04- ) HCAP -Flagyl 500mg q8H (04/29 - ) for aspiration -Discontinued Cefepime 2g IV daily (04/30 - d/c 05/04 ) -Discontinued Vancomycin IV (04/30 - d/c 05/04 ) -Legionella and strep pneumo urine tests negative -Sputum culture showing staph aureus and Serratia Marcescens -Repeat blood cultures, with 09/04 positive; possible contaminant -Duonebs treatments q6h (4) Yeast UTI ICD Codes: B37.49 - Other urogenital candidiasis Status: Resolved Plan: UA showed glucose, large number of leukocytes esterase, innumerable WBCs , rare bacteria, and few yeast Urine culture shows Lea Glabrata; however, high GGT and Alk Phos require reducing hepatotoxic drugs -D/C Micafungin 100mg IV daily as it is hepatically metabolized (5) Abdominal distension ICD Codes: R14.0 - Abdominal distension (gaseous) Status: Acute Plan: Abdominal distension evident on exam 05/05 with serial KUBs neg for etiology 05/06 - CT abdomen/pelvis to look for occult source of infection/distension; Dr Pedraza concurs with study -GGT 787 and Alk Phos now 1980 -CT abdomen/pelvis shows left side pneumothorax, fatty infiltration of pancreas , 5cm calcified uterine fibroid, but no gallstones -Abdominal distension persists s/p chest tube -Active bowel sounds and flatus noted following chest tube placement (6) Type 2 diabetes mellitus ICD Codes: E11.9 - Type 2 diabetes mellitus without complications Status: Chronic Plan: Admitted for DKA which has now resolved. Hemoglobin A1C is 12.9. Diabetes Type I is uncontrolled. -Per Dr Pedraza, Levemir 10 units BID due to hypoglycemia at higher dose -Medium dose insulin sliding scale with goal blood glucose between 140 and 180 -Glucerna for NG tube feedings -Regular accuchecks q4H -LR IVF @ 75 ml/hr as above (7) Atrial fibrillation ICD Codes: I48.91 - Unspecified atrial fibrillation Status: Acute Plan: Hx of intermittent Afib. Resolved with administration of Lopressor. -Continue to monitor -Lopressor PRN (8) Hip fracture ICD Codes: S72.009A - Fracture of unspecified part of neck of unspecified femur , initial encounter for closed fracture Status: Acute Plan: S/P left hip reduction and intramedullary nail fixation on 04-21-17 -Consult orthopedics-appreciate recs * Cleared for discharge to rehabilitation * WBAT * Daily dressing changes * CM for rehabilitation placement * Follow-up in 2 weeks -Calcium/Vitamin D -Fluids as above -Tylenol, morphine PRN pain (9) Hypertension ICD Codes: I10 - Essential (primary) hypertension Status: Acute Plan: IV hydration. BPs wnl overnight -Continue fluids as above -Antihypertensives to keep SBP<180 (10) Fluid overload ICD Codes: E87.70 - Fluid overload, unspecified Status: Acute Plan: Financial Sales Manager noted fluid overload -Bumex IV for diuresis -Metolazone 2.5mg (11) Fluids, Electrolytes, and Nutrition Status: Acute Plan: Fluids: IVF as above Electrolyte: on electrolyte protocol Nutrition: Glucerna tube feeds DVT ppx: SCDs/lovenox as above GI ppx: protonix Colace, fleet enema mineral oil (Chuy Camacho MD R1) Problem Qualifiers (1) Sepsis: Qualified Codes: A41.9 - Sepsis, unspecified organism (2) Type 2 diabetes mellitus: Qualified Codes: E11.9 - Type 2 diabetes mellitus without complications (3) Atrial fibrillation: Qualified Codes: I48.0 - Paroxysmal atrial fibrillation (4) Hip fracture: (5) Hypertension: Qualified Codes: I10 - Essential (primary) hypertension (6) Fluid overload: Qualified Codes: E87.79 - Other fluid overload Chuy Camacho MD R1 May 07, 2017 18:28 Angélica Malik MD May 09, 2017 08:23
[2017-05-07] MEDS: DOCUSATE SODIUM 100 MG/10 ML UDC PO SCH (21:08)
[2017-05-07] MEDS: SENNOSIDES SYRUP 8.8 MG/5 ML CUP OG-TUBE SCH (21:08)
[2017-05-07] MEDS: POLYETHYLENE GLYCOL 17 GM PKG OG-TUBE SCH (21:08)
--- NOTE | 2017-05-07 21:11 | HHI.NSPN ---
History Chief Complaint: Unable to obtain due to the patient's clinical condition. Interval History 76-year-old female status post left MCA distribution CVA with significant mass effect. 05/03/2017: Remains intubated. Minimal eye opening to sternal rub. Grasps left hand good strength to command. 05/07/17: Remains intubated. Awake and relatively alert. Minimally disconjugate left gaze and response to voice. Moves left upper and lower extremity well to command. CPAP trials Exam Results Vital Signs Date Time Temp Pulse Resp B/P (MAP) Pulse Ox O2 Delivery O2 Flow Rate FiO2 05/07/17 18:00 95 05/07/17 16:00 97.6 15 148/65 (92) 100 05/07/17 16:00 50 05/07/17 07:00 Mechanical Ventilator Intake and Output 05/07/17 05/07/17 05/08/17 08:00 16:00 00:00 Intake Total 1373 ml 100 ml 1208 ml Output Total 325 ml 1280 ml Balance 1048 ml 100 ml -72 ml Physical Examination GENERAL: Intubated. SKIN: Cool, dry & intact w/o any evident rashes, ulcerations or lesions, with generalised dependent edema. HEENT: Normocephalic, atraumatic. PERRL. Orally intubated. Feeding tube. NECK: No JVD, trachea midline. CARDIOVASCULAR: S1S2 w/RRR w/o M/G/R, radial & pedal pulses 1+ bilaterally, cap refill < 2 sec, generalised dependent edema. Monitor is sinus rhythm w/o any evident ectopy. RESPIRATORY: Clear, nonlabored. Intubated, mechanically ventilated. GASTROINTESTINAL: Abdomen soft, rounded, positive bowel sounds. Feeding tube clamped. MUSCULOSKELETAL: No evident deformity or clubbing. NEUROLOGICAL: No sedation. Awake and relatively alert Minimally disconjugate left gaze to voice. Tracks and focuses. Good grasp and left leg movement to command. Persistent right hemiplegia Lab, Micro, Other Results Laboratory Tests Test 05/07/17 04:21 05/07/17 06:05 Blood Urea Nitrogen 36 MG/DL Creatinine 0.37 MG/DL Random Glucose 239 MG/DL Total Protein 5.1 GM/DL Albumin 1.5 GM/DL Calcium Level 7.7 MG/DL Alkaline Phosphatase 1931 U/L Aspartate Amino Transf (AST/SGOT) 217 U/L Alanine Aminotransferase (ALT/SGPT) 55 U/L Gamma Glutamyl Transpeptidase 787 U/L Total Bilirubin 1.2 MG/DL Direct Bilirubin 0.8 MG/DL Sodium Level 145 MEQ/L Potassium Level 3.9 MEQ/L Chloride Level 109 MEQ/L Carbon Dioxide Level 27.8 MEQ/L Anion Gap 8 MEQ/L Estimat Glomerular Filtration Rate 171 ML/MIN Indirect Bilirubin 0.4 MG/DL Blood Gas Puncture Site RT RADIAL Blood Gas Patient Temperature 98.6 Blood Gas HCO3 27 mmol/L Blood Gas Base Excess 3.1 mmol/L Blood Gas Oxygen Saturation 95 % Arterial Blood pH 7.48 Arterial Blood Partial Pressure CO2 36 mmHg Arterial Blood Partial Pressure O2 94 mmHg Arterial Blood Oxygen Content 13.4 Vol % Arterial Blood Carboxyhemoglobin 1.6 % Arterial Blood Methemoglobin 0.7 % Blood Gas Hemoglobin 9.9 G/DL Oxygen Delivery Device VENTILATOR Blood Gas Ventilator Setting SEE COMMENTS Blood Gas Inspired Oxygen 70 % Medical Decision Making Impression and Plan Impression: 1. Stable neurologic exam following left MCA CVA. Most recent CT scan head on 05/06/17 with diminished mass effect from 14 down to 10 mm shift. Continues to follow commands intermittent on the left side. Persistent right hemiplegia Plan: Patient appears stable for ventilator wean On CPAP trials Continue to monitor sodium levels Improving steadily. Okay for Lovenox from neurosurgical standpoint Parker López MD May 07, 2017 21:11
[2017-05-08] VITALS (22 sets, daily range): BP systolic 108–134; BP diastolic 57–82; PULSE 89–110; RESP 14–22; TEMP 98.1–99.2; O2SAT 92–100
[2017-05-08] MEDS: RESP: ALBUTEROL 2.5 MG/IPRATROPIUM 0.5 MG NEB (SCH) NEB ×4 (01:54→19:58)
[2017-05-08 05:08] LABS: BACTERIA, URINE RARE /hpf; BILIRUBIN, URINE NEG (NEG); BLOOD, URINE SMALL (NEG); GLUCOSE,URINE NEG (NEG); HYALINE CAST, URINE 1 /lpf (RARE); KETONE, URINE NEG (NEG); MUCUS URINE FEW /lpf (OCC); NITRITE,URINE NEG (NEG); SQUAMOUS EPITHELIAL CELL URINE 2 /hpf (0-5); TRANSITIONAL EPI CELLS, URINE <1 /hpf; URINE COLOR YELLOW (YELLW/STRAW); URINE LEUKOCYTE ESTERASE SMALL (NEG)
[2017-05-08 05:21] LABS: AUTOMATED NEUTROPHIL # 12.9 TH/MM3 (1.8-7.7); BASOPHIL % 0.1 % (0.0-2.0); EOSINOPHIL % 0.3 % (0.0-4.0); HEMATOCRIT 23.1 % (35.0-46.0); HEMOGLOBIN 7.5 GM/DL (11.6-15.3); LYMPH % 8.3 % (9.0-44.0); LYMPHOCYTE # 1.2 TH/MM3 (1.0-4.8); MEAN CELL VOLUME 96.7 FL (80.0-100.0); MEAN CORPUSCULAR HEMOGLOBIN 31.6 PG (27.0-34.0); MEAN CORPUSCULAR HGB CONC 32.7 % (32.0-36.0); MEAN PLATELET VOLUME 9.3 FL (7.0-11.0); MONO % 2.2 % (0.0-8.0); MONOCYTE # 0.3 TH/MM3 (0-0.9); NEUT % 89.1 % (16.0-70.0); PLATELET COUNT 472 TH/MM3 (150-450); RED BLOOD COUNT 2.38 MIL/MM3 (4.00-5.30); RED CELL DISTRIBUTION WIDTH 14.4 % (11.6-17.2); WHITE BLOOD COUNT 14.5 TH/MM3 (4.0-11.0)
[2017-05-08 05:53] LABS: ALBUMIN 1.4 GM/DL (3.4-5.0); BLOOD UREA NITROGEN 29 MG/DL (7-18); CREATININE 0.44 MG/DL (0.50-1.00); GLOMERULAR FILTRATION RATE 140 ML/MIN (>89); GLUCOSE,RANDOM 104 MG/DL (74-106); TOTAL PROTEIN 5.4 GM/DL (6.4-8.2)
[2017-05-08 05:54] LABS: ALKALINE PHOSPHATASE 1542 U/L (45-117); ALT (GPT) 39 U/L (10-53); AST (GOT) 45 U/L (15-37); CALCIUM 7.8 MG/DL (8.5-10.1); CHLORIDE 107 MEQ/L (98-107); MAGNESIUM 2.4 MG/DL (1.5-2.5); PHOSPHORUS 2.2 MG/DL (2.5-4.9); SODIUM (NA) 146 MEQ/L (136-145); TOTAL BILIRUBIN ADULT 0.5 MG/DL (0.2-1.0)
[2017-05-08 05:55] LABS: BICARBONATE 31.8 MEQ/L (21.0-32.0)
[2017-05-08] MEDS: metroNIDAZOLE 500 MG TAB DOBHOFF SCH ×3 (06:17→22:03)
[2017-05-08] MEDS: POTASSIUM CHLOR 20 MEQ PREMIX 100 ML IV PRN ×3 (06:32→22:20)
[2017-05-08] MEDS: INSULIN ASPART SUPPLEMENTAL SCALE SQ SCH ×4 (07:00→22:06)
[2017-05-08] MEDS: SODIUM CHLORIDE 0.9% FLUSH 5 ML FLUSH IV FLUSH SCH ×2 (09:00→22:04)
[2017-05-08] MEDS: INSULIN DETEMIR 100 UNITS/ML VIAL SQ SCH ×2 (09:00→22:05)
[2017-05-08 09:09] LABS: BANDS 6 % (0-6); CORRECTED NUCLEATED RBC 2 /100 WBC (0-0); LYMPHOCYTES 6 % (9-44); METAMYELOCYTES 2 % (0-1); NEUTROPHIL # MANUAL DIFF 13.6 TH/MM3 (1.8-7.7); NUCLEATED RED BLOOD CELL 2 (0-0); POLYS (SEG NEUTROPHILS) 86 % (16-70)
[2017-05-08 09:10] LABS: POLYCHROMASIA 2.4 % (0.0-1.9); STOMATOCYTES 1+ (NORMAL)
--- NOTE | 2017-05-08 09:32 | HHI.NSPN ---
(Rene Reed) History Chief Complaint: Unable to obtain due to the patient's clinical condition. 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 05/03/2017: Remains intubated. Minimal eye opening to sternal rub. Grasps left hand good strength to command. 05/06: Patient continues to be intubated and off any sedation. She had a repeat CT brain this morning which demonstrated an evolving large left-sided MCA territory infarct with minimal improvement in the [id number] subfalcine shift. 05/07/17: Remains intubated. Awake and relatively alert. Minimally disconjugate left gaze and response to voice. Moves left upper and lower extremity well to command. CPAP trials 05/08: Patient still is intubated and is on pressure controlled ventilation. She is not on any sedation and arouses to noxious stimulation. The patient was noted to have a left-sided pneumothorax on her chest x-ray yesterday and the Manager Business Continuity placed a tube thoracostomy. (Rene Reed) System Review Comments Unable to obtain due to the patient's clinical condition. (Rene Reed) Exam Results 05/06/17 05/06/17 05/07/17 05/07/17 05/08/17 05/08/17 06:00 18:00 06:00 18:00 06:00 18:00 Intake Total 945 ml 2060 ml 1373 ml 1308 ml 248 ml Output Total 300 ml 350 ml 325 ml 1280 ml 1450 ml Balance 645 ml 1710 ml 1048 ml 28 ml -1202 ml IV Total 679 ml 2060 ml 816 ml 700 ml Tube Feeding 146 ml 437 ml 488 ml 128 ml Tube Irrigant 120 ml Other 120 ml 120 ml 120 ml Output Urine Total 300 ml 350 ml 325 ml 1100 ml 1400 ml Chest Tube Drainage Total 180 ml 50 ml # Bowel Movements 1 2 1 2 2 Vital Signs Date Time Temp Pulse Resp B/P (MAP) Pulse Ox O2 Delivery O2 Flow Rate FiO2 05/08/17 07:59 94 50 05/08/17 06:00 98 05/08/17 04:17 94 50 05/08/17 04:00 50 05/08/17 04:00 99.2 94 22 109/62 (78) 95 05/08/17 04:00 94 05/08/17 03:00 94 50 05/08/17 02:00 104 05/08/17 01:52 97 40 05/08/17 00:00 50 05/08/17 00:00 98.7 110 17 115/78 (90) 94 05/08/17 00:00 110 05/07/17 22:56 97 50 05/07/17 22:00 114 05/07/17 20:02 96 50 05/07/17 20:00 92 05/07/17 20:00 98.5 92 17 145/79 (101) 96 05/07/17 20:00 50 05/07/17 19:00 97 Mechanical Ventilator 50 05/07/17 18:00 95 05/07/17 16:00 97.6 85 15 148/65 (92) 100 05/07/17 16:00 50 05/07/17 16:00 85 05/07/17 15:49 98 60 05/07/17 14:00 90 05/07/17 13:05 100 100 05/07/17 12:00 88 05/07/17 12:00 50 05/07/17 12:00 98.4 88 15 117/65 (82) 94 05/07/17 11:31 92 60 05/07/17 10:00 97 05/07/17 08:10 100 60 05/07/17 08:00 60 05/07/17 08:00 93 05/07/17 08:00 98.3 93 17 155/76 (102) 100 05/07/17 07:00 60 Mechanical Ventilator 92 05/07/17 06:00 96 05/07/17 04:03 96 70 05/07/17 04:00 98.3 106 15 126/81 (96) 97 05/07/17 04:00 70 05/07/17 04:00 106 05/07/17 02:00 105 05/07/17 01:26 94 70 05/07/17 00:00 80 05/07/17 00:00 104 05/07/17 00:00 97.6 104 24 111/76 (88) 94 05/06/17 22:00 98 05/06/17 20:01 95 70 05/06/17 20:00 98.6 90 14 129/65 (86) 95 05/06/17 20:00 90 05/06/17 20:00 70 05/06/17 19:00 94 Mechanical Ventilator 70 05/06/17 18:00 89 05/06/17 16:00 88 05/06/17 16:00 98.7 88 23 119/61 (80) 94 05/06/17 16:00 96 50 05/06/17 16:00 50 05/06/17 14:00 84 05/06/17 12:00 98.0 86 20 141/77 (98) 94 05/06/17 12:00 86 05/06/17 12:00 50 05/06/17 11:40 100 50 05/06/17 10:00 95 05/06/17 08:06 94 50 05/06/17 08:00 86 05/06/17 08:00 98.0 86 15 120/56 (77) 94 05/06/17 08:00 50 05/06/17 07:00 94 Mechanical Ventilator 50 05/06/17 06:00 95 05/06/17 04:15 99 05/06/17 04:00 100 05/06/17 04:00 98.3 100 26 112/68 (83) 93 05/06/17 04:00 50 05/06/17 03:42 97 50 05/06/17 02:00 97 05/06/17 00:00 50 05/06/17 00:00 110 05/06/17 00:00 99.0 98 22 141/71 (94) 94 05/05/17 23:55 98 50 05/05/17 22:00 101 05/05/17 20:00 105 05/05/17 20:00 99.0 105 23 137/70 (92) 94 05/05/17 20:00 50 05/05/17 19:44 93 50 05/05/17 19:00 92 Mechanical Ventilator 50 05/05/17 18:00 96 05/05/17 17:23 92 50 05/05/17 17:15 93 50 05/05/17 16:00 96 05/05/17 16:00 50 05/05/17 16:00 99.0 96 18 108/59 (75) 94 05/05/17 14:00 94 05/05/17 12:00 50 05/05/17 12:00 97.2 94 20 121/66 (84) 94 05/05/17 12:00 94 05/05/17 11:35 94 50 05/05/17 10:00 103 (Rene Reed) Physical Examination GENERAL: Lethargic, responds to noxious stimulation. Intubated but w/o any sedation. No apparent distress. SKIN: Cool, with generalised dependent edema, serous seepage noted to right dorsal hand, w/o any evident rashes, ulcerations or lesions. HEENT: Normocephalic, atraumatic. PERRL. Orally intubated. Right nare feeding tube. NECK: No JVD, trachea midline. CARDIOVASCULAR: S1S2 w/RRR w/o M/G/R, radial & pedal pulses 1+ bilaterally, cap refill < 2 sec, generalised dependent edema. Monitor is sinus rhythm w/o any evident ectopy. RESPIRATORY: Coarse bilaterally, equal excursion, nonlaboured, intubated and on pressure controlled ventilation. Left-sided tube thoracotomy to negative pressure. GASTROINTESTINAL: Abdomen slightly distended but soft, bowel sounds not appreciated. Feeding tube clamped. MUSCULOSKELETAL: No evident deformity or clubbing. NEUROLOGICAL: Intubated w/o any sedation. Lethargic, opens eyes to noxious stimulation. PERRL, minimally disconjugate left gaze to voice, appeared to focus but not track. Weak left hand grasp to command, no response to noxious stimulation to RUE or BLE but was noted to move LUE when noxious stimulation was applied to RUE. Persistent right hemiplegia. (Rene Reed) Lab, Micro, Other Results Recent Impressions Chest X-Ray 05/07/17 0400 Signed Impressions: Service Date/Time: Sunday, May 07, 2017 04:38 - CONCLUSION: 1. Stable Low-lying ETT with tip approximately 1 cm above the valerie. 2. Mild interval progression of bilateral airspace consolidation exaggerated by patient rotation. 3. Increased small left pleural effusion. Alejo De La Vega MD Chest X-Ray 05/07/17 Signed Impressions: Service Date/Time: Sunday, May 07, 2017 15:51 - CONCLUSION: 1. Resolution of the previously noted left pneumothorax status post placement of small chest tube. Some subcutaneous emphysema is noted within the left chest wall. 2. Stable scattered pulmonary infiltrates bilaterally. 3. Cardiomegaly. 4. Indwelling tubes are stable. Enzo Farooq MD Abdomen/Pelvis CT 05/07/17 Signed Impressions: Service Date/Time: Sunday, May 07, 2017 13:23 - CONCLUSION: 1. Large left pneumothorax. 2. Bilateral lower lobe consolidation and bilateral moderate size pleural effusions. 3. Significant soft tissue thickening of the right lateral chest wall and left gluteus muscle. 4. Mild ascites. The findings were called to Dr. Carney. Deangelo Zamora MD Head CT 05/06/17 Signed Impressions: Service Date/Time: Saturday, May 06, 2017 04:18 - CONCLUSION: 1. Evolving large left-sided MCA territory infarct with minimally improved [id number] subfalcine shift. 2. No intercurrent hemorrhage or other acute abnormality. Alejo De La Vega MD Abdomen X-Ray 05/06/17 Signed Impressions: Service Date/Time: Saturday, May 06, 2017 17:42 - CONCLUSION: Dobbhoff feeding tube tip near the gastroduodenal junction. Obdulio Simms MD Abdomen X-Ray 05/06/17 Signed Impressions: Service Date/Time: Saturday, May 06, 2017 17:02 - CONCLUSION: No change. Coiled feeding tube tip at the fundus. Obdulio Simms MD Abdomen X-Ray 05/06/17 Signed Impressions: Service Date/Time: Saturday, May 06, 2017 15:24 - CONCLUSION: 1. The Dobbhoff tube remains looped in the stomach with the tip in the fundus unchanged from the prior study Toy Duran MD Abdomen X-Ray 05/06/17 Signed Impressions: Service Date/Time: Saturday, May 06, 2017 12:58 - CONCLUSION: Dobbhoff feeding tube coiled in the stomach. Obdulio Simms MD Abdomen X-Ray 05/06/17 Signed Impressions: Service Date/Time: Saturday, May 06, 2017 11:17 - CONCLUSION: Feeding tube tip at the level of the mid stomach and can be advanced 15-20 cm. Obdulio Simms MD 05/06/17 05/06/17 05/07/17 05/07/17 05/08/17 05/08/17 06:00 18:00 06:00 18:00 06:00 18:00 Intake Total 945 ml 2060 ml 1373 ml 1308 ml 248 ml Output Total 300 ml 350 ml 325 ml 1280 ml 1450 ml Balance 645 ml 1710 ml 1048 ml 28 ml -1202 ml IV Total 679 ml 2060 ml 816 ml 700 ml Tube Feeding 146 ml 437 ml 488 ml 128 ml Tube Irrigant 120 ml Other 120 ml 120 ml 120 ml Output Urine Total 300 ml 350 ml 325 ml 1100 ml 1400 ml Chest Tube Drainage Total 180 ml 50 ml # Bowel Movements 1 2 1 2 2 Laboratory Tests Test 05/06/17 04:49 05/07/17 04:21 05/07/17 06:05 05/07/17 21:00 White Blood Count 22.1 TH/MM3 Red Blood Count 2.73 MIL/MM3 Hemoglobin 8.6 GM/DL Hematocrit 26.5 % Mean Corpuscular Volume 96.9 FL Mean Corpuscular Hemoglobin 31.5 PG Mean Corpuscular Hemoglobin Concent 32.5 % Red Cell Distribution Width 14.8 % Platelet Count 475 TH/MM3 Mean Platelet Volume 9.8 FL Neutrophils (%) (Auto) 90.8 % Lymphocytes (%) (Auto) 6.3 % Monocytes (%) (Auto) 2.3 % Eosinophils (%) (Auto) 0.4 % Basophils (%) (Auto) 0.2 % Neutrophils # (Auto) 20.1 TH/MM3 Lymphocytes # (Auto) 1.4 TH/MM3 Monocytes # (Auto) 0.5 TH/MM3 Eosinophils # (Auto) 0.1 TH/MM3 Basophils # (Auto) 0.0 TH/MM3 CBC Comment AUTO DIFF Differential Total Cells Counted 100 Neutrophils % (Manual) 68 % Band Neutrophils % 22 % Lymphocytes % 4 % Monocytes % 3 % Eosinophils % 1 % Neutrophils # (Manual) 20.3 TH/MM3 Myelocytes 2 % Nucleated Red Blood Cells 3 /100 WBC Differential Comment FINAL DIFF MANUAL Toxic Granulation 2+ Platelet Estimate HIGH Platelet Morphology Comment NORMAL Blood Urea Nitrogen 42 MG/DL 36 MG/DL Creatinine 0.47 MG/DL 0.37 MG/DL Random Glucose 192 MG/DL 239 MG/DL Total Protein 5.8 GM/DL 5.1 GM/DL Albumin 1.0 GM/DL 1.5 GM/DL Calcium Level 8.0 MG/DL 7.7 MG/DL Alkaline Phosphatase 1092 U/L 1931 U/L Aspartate Amino Transf (AST/SGOT) 82 U/L 217 U/L Alanine Aminotransferase (ALT/SGPT) 43 U/L 55 U/L Total Bilirubin 0.5 MG/DL 1.2 MG/DL Sodium Level 147 MEQ/L 145 MEQ/L Potassium Level 4.0 MEQ/L 3.9 MEQ/L Chloride Level 110 MEQ/L 109 MEQ/L Carbon Dioxide Level 29.3 MEQ/L 27.8 MEQ/L Anion Gap 8 MEQ/L 8 MEQ/L Estimat Glomerular Filtration Rate 130 ML/MIN 171 ML/MIN Gamma Glutamyl Transpeptidase 787 U/L Direct Bilirubin 0.8 MG/DL Indirect Bilirubin 0.4 MG/DL Blood Gas Puncture Site RT RADIAL Blood Gas Patient Temperature 98.6 Blood Gas HCO3 27 mmol/L Blood Gas Base Excess 3.1 mmol/L Blood Gas Oxygen Saturation 95 % Arterial Blood pH 7.48 Arterial Blood Partial Pressure CO2 36 mmHg Arterial Blood Partial Pressure O2 94 mmHg Arterial Blood Oxygen Content 13.4 Vol % Arterial Blood Carboxyhemoglobin 1.6 % Arterial Blood Methemoglobin 0.7 % Blood Gas Hemoglobin 9.9 G/DL Oxygen Delivery Device VENTILATOR Blood Gas Ventilator Setting SEE COMMENTS Blood Gas Inspired Oxygen 70 % Lactate Dehydrogenase 532 U/L Total Creatine Kinase 82 U/L Amylase Level 21 U/L Lipase 48 U/L Test 05/08/17 04:20 05/08/17 04:44 Urine Color YELLOW Urine Turbidity CLEAR Urine pH 5.0 Urine Specific [place] 1.018 Urine Protein NEG mg/dL Urine Glucose (UA) NEG mg/dL Urine Ketones NEG mg/dL Urine Occult Blood SMALL Urine Nitrite NEG Urine Bilirubin NEG Urine Urobilinogen LESS THAN 2.0 MG/DL Urine Leukocyte Esterase SMALL Urine RBC 7 /hpf Urine WBC 3 /hpf Urine Squamous Epithelial Cells 2 /hpf Urine Transitional Epithelial Cells <1 /hpf Urine Bacteria RARE /hpf Urine Hyaline Casts 1 /lpf Urine Mucus FEW /lpf Microscopic Urinalysis Comment CATH-CULTURE IND White Blood Count 14.5 TH/MM3 Red Blood Count 2.38 MIL/MM3 Hemoglobin 7.5 GM/DL Hematocrit 23.1 % Mean Corpuscular Volume 96.7 FL Mean Corpuscular Hemoglobin 31.6 PG Mean Corpuscular Hemoglobin Concent 32.7 % Red Cell Distribution Width 14.4 % Platelet Count 472 TH/MM3 Mean Platelet Volume 9.3 FL Neutrophils (%) (Auto) 89.1 % Lymphocytes (%) (Auto) 8.3 % Monocytes (%) (Auto) 2.2 % Eosinophils (%) (Auto) 0.3 % Basophils (%) (Auto) 0.1 % Neutrophils # (Auto) 12.9 TH/MM3 Lymphocytes # (Auto) 1.2 TH/MM3 Monocytes # (Auto) 0.3 TH/MM3 Eosinophils # (Auto) 0.0 TH/MM3 Basophils # (Auto) 0.0 TH/MM3 CBC Comment AUTO DIFF Differential Total Cells Counted 100 Neutrophils % (Manual) 86 % Band Neutrophils % 6 % Lymphocytes % 6 % Neutrophils # (Manual) 13.6 TH/MM3 Metamyelocytes 2 % Nucleated Red Blood Cells 2 /100 WBC Differential Comment FINAL DIFF MANUAL Platelet Estimate HIGH Platelet Morphology Comment NORMAL Polychromasia 2.4 % Stomatocytes 1+ Blood Urea Nitrogen 29 MG/DL Creatinine 0.44 MG/DL Random Glucose 104 MG/DL Total Protein 5.4 GM/DL Albumin 1.4 GM/DL Calcium Level 7.8 MG/DL Phosphorus Level 2.2 MG/DL Magnesium Level 2.4 MG/DL Alkaline Phosphatase 1542 U/L Aspartate Amino Transf (AST/SGOT) 45 U/L Alanine Aminotransferase (ALT/SGPT) 39 U/L Total Bilirubin 0.5 MG/DL Sodium Level 146 MEQ/L Potassium Level 2.5 MEQ/L Chloride Level 107 MEQ/L Carbon Dioxide Level 31.8 MEQ/L Anion Gap 7 MEQ/L Estimat Glomerular Filtration Rate 140 ML/MIN (Rene Reed) Medical Decision Making Impression and Plan Impression: 1. Large left MCA CVA 2. Persistent right hemiplegia 3. Aspiration pneumonia 4. Hypoxic respiratory failure Patient lethargic but did open eyes to noxious stimulation and weakly followed commands with LUE. Persistent right hemiplegia. Plan: Primary management per Manager Business Continuity. Frequent neuro checks. Continue ventilatory support. Continue keep sodium 148-154 range. Okay for Lovenox from neurosurgical standpoint. (Rene Reed) Attending Statement I have personally seen and examined the patient on 05/08/2017. Pertinent documentation and study results have been reviewed by the undersigned. I have personally developed the treatment plan and performed medical decision making. Agree with findings, exam, and treatment plan as noted above. No significant change in overall exam. Mild opening to voice Moves left upper and lower extremity moderate strength to command. Labs reviewed Stable neurologic exam. (Parker López MD) Rene Reed May 08, 2017 09:32 Parker López MD May 09, 2017 20:28
[2017-05-08] MEDS: LEVOFLOXACIN 750 MG PREMIX INJ 150 ML IV SCH (09:42)
[2017-05-08] MEDS: LACTULOSE SYRUP 20 GM/30 ML CUP PO SCH ×4 (09:42→21:00)
[2017-05-08] MEDS: CALCIUM/VITAMIN D 250 MG/125 U TAB PO SCH ×3 (09:42→17:50)
[2017-05-08] MEDS: POLYETHYLENE GLYCOL 17 GM PKG OG-TUBE SCH ×2 (09:42→21:00)
[2017-05-08] MEDS: LANSOPRAZOLE SOLUTAB 30 MG TAB NG SCH (09:42)
[2017-05-08] MEDS: SENNOSIDES SYRUP 8.8 MG/5 ML CUP OG-TUBE SCH ×2 (09:42→21:00)
[2017-05-08] MEDS: CHOLECALCIFEROL (VIT D3) 5000 UNIT CAP PO SCH (09:42)
[2017-05-08] MEDS: DOCUSATE SODIUM 100 MG/10 ML UDC PO SCH ×2 (09:42→21:00)
[2017-05-08] MEDS ORDERED: BUMETANIDE INJ 1 MG/4 ML VIAL IV PUSH ONE (10:00)
[2017-05-08] MEDS ORDERED: POTASSIUM PHOSPHATE/SODIUM PHOSPHATE 250 MG TAB PO ONE (10:00)
[2017-05-08] MEDS ORDERED: POTASSIUM CHLORIDE 20 MEQ PWD PACKET PO ONE (10:00)
--- NOTE | 2017-05-08 10:20 | HHI.CCPN ---
Subjective Remarks/Hospital Course 04/24: 76-year-old female with a medical history significant for prior stroke, diabetes mellitus who was admitted with DKA and a hip fracture for which she underwent ORIF on 04/21. Patient developed altered mental status and was last noted to be okay around 5:30 AM. Subsequently there was a change in her mental status and she was noted to not be moving her right side for which stroke alert was called. Head CT showed large left MCA territory ischemic infarct with edema. Patient was transferred to the ICU by family medicine service in the critical care consult was requested. I evaluated the patient following arrival to the ICU. At that time she was laying in bed with her eyes open however not following commands and had a dense right hemiplegia. Patient was also evaluated by Dr. Malave from neurology. I further discussed current event with patient's daughter following her arrival to the ICU. Per the daughter patient has been living with her since her stroke in 2014 and does ambulate however has been having problems with memory and incontinence as well as gait difficulties. She does not feel patient would want intubation or tracheostomy or PEG tube. 04/25: Patient remains encephalopathic, awake though not following commands consistently. Dense right hemiplegia persists. Appears to be awake enough to protect airway currently. Patient's daughter rescinded DNR and made a full code last evening. 04/26: Remains encephalopathic, not following commands. On Dobbhoff for tube feeds at 30 cc per hour. Had urinary retention and drained 2 L of urine after placing Leavitt catheter today. CT head done this morning with large left MCA territory infarct with left to right midline shift and significant cerebral edema. Hyperglycemia noted. Patient given mannitol earlier for increasing cerebral edema. 04/27: Remains encephalopathic, not following commands. On Dobbhoff tube feeds at 30 cc per hour. When into A. fib with RVR last night which responded with Lopressor 5 mg IV 1 dose. 04/28: Remains encephalopathic, arousable, not following commands. Moves left upper extremity spontaneously. Tolerating Dobbhoff tube feeds. Remains on nasal cannula. 04/29: Encephalopathic, eyes be arousable, moves left upper extremity spontaneously and occasionally opens eyes. Dense right hemiplegia and aphasia persists. On nasal cannula. Dobbhoff tube feeds being advanced. Patient was transfused 1 unit PRBCs yesterday. Urine culture with yeast from yesterday for which fluconazole being started. Had brief run of A. fib with RVR which improved with Lopressor IV, currently in sinus rhythm. 04/30: Worsening hypoxemic respiratory failure, currently on partial nonrebreather. Remains lethargic. WBC count increased from 14.6 today 20.7. Chest x-ray shows bilateral worsening infiltrates and small pleural effusions. Sodium 154, weight up by 8 KG. Albumin 1 mg Bumex 1. Also one dose of albumin. Remains in sinus tachycardia. Tmax 101.3 05/01: Patient was intubated yesterday for lack of airway protection, and severe hypoxemic respiratory failure from aspiration pneumonia involving multiple lobes. Patient is on the vent lethargic, no spontaneous eye opening. Chest x- ray remains unchanged. Remains intermittently febrile Tmax 101.3. WBC count improving 05/02: Remains critically ill with no improvement in mental status. Spiking fever of 101.7. Blood culture and sputum culture with staph aureus sputum also growing GNR, WBC count 22,000 now indicating worsening sepsis. Daughter still requesting aggressive care. Palliative care is following 05/03: S/P large area dominant hemisphere CVA. No neurological improvement. Now with pneumonia (infiltrate, fever, leukocytosis) and appropriate abx coverage. She will have a hard time surviving the hip fx, CVA, and pneumonia. Palliative Care needs to be a mainstay of our plan. 05/04: No improvement in neuro status. Sputum C&S allows us to narrow abx coverage to levaquin alone. Lungs remain quite congested. Enteral nutrition tolerated. 05/05: No improvement in neuro status. Moves left arm spontaneously. Flaccid right side. Unresponsive. Persistent mild hypoglycemia - will cut Levemir 50%. Abdomen more distended, check KUB. 05/06: CT head with massive left MCA infarction and > 1 cm shift in right handed woman. She opens eyes, does not track. 05/07: Patient open eyes. Attempts to respond. Ukrainian speaking. Tolerating tube feeds. Positive bowel movement. Volume overloaded. Subjective 05/08: Tmax 99.4. Potassium being replaced. Ultrasound gallbladder currently pending. Transaminases are trending downward. Gently diurese. Objective Vital Signs Date Time Temp Pulse Resp B/P (MAP) Pulse Ox O2 Delivery O2 Flow Rate FiO2 05/08/17 09:59 94 50 05/08/17 06:00 98 9/7/17 04:00 99.2 22 109/62 (78) 05/07/17 19:00 Mechanical Ventilator Intake and Output 05/08/17 05/08/17 05/09/17 08:00 16:00 00:00 Intake Total 248 ml Output Total 1450 ml Balance -1202 ml Result Diagram: 05/08/17 0444 05/08/17 0444 Other Results Microbiology Date/Time Source Procedure Growth Status 05/08/17 04:44 Blood Peripheral Aerobic Blood Culture Pending Received 05/08/17 04:44 Blood Peripheral Anaerobic Blood Culture Pending Received 05/07/17 21:30 Sputum Endotracheal Gram Stain - Final Resulted 05/07/17 21:30 Sputum Endotracheal Sputum Culture Pending Resulted 05/08/17 04:20 Urine Catheterized Urine Urine Culture Pending Received Imaging Last Impressions Chest X-Ray 05/07/17 0400 Signed Impressions: Service Date/Time: Sunday, May 07, 2017 04:38 - CONCLUSION: 1. Stable Low-lying ETT with tip approximately 1 cm above the valerie. 2. Mild interval progression of bilateral airspace consolidation exaggerated by patient rotation. 3. Increased small left pleural effusion. Alejo De La Vega MD Abdomen/Pelvis CT 05/07/17 0000 Signed Impressions: Service Date/Time: Sunday, May 07, 2017 13:23 - CONCLUSION: 1. Large left pneumothorax. 2. Bilateral lower lobe consolidation and bilateral moderate size pleural effusions. 3. Significant soft tissue thickening of the right lateral chest wall and left gluteus muscle. 4. Mild ascites. The findings were called to Dr. Carney. Deangelo Zamora MD Head CT 05/06/17 0000 Signed Impressions: Service Date/Time: Saturday, May 06, 2017 04:18 - CONCLUSION: 1. Evolving large left-sided MCA territory infarct with minimally improved [id number] subfalcine shift. 2. No intercurrent hemorrhage or other acute abnormality. Alejo De La Vega MD Abdomen X-Ray 05/06/17 0000 Signed Impressions: Service Date/Time: Saturday, May 06, 2017 17:42 - CONCLUSION: Dobbhoff feeding tube tip near the gastroduodenal junction. Obdulio Simms MD Hip and Pelvis X-Ray 05/05/17 0000 Signed Impressions: Service Date/Time: Friday, May 05, 2017 10:59 - CONCLUSION: Left proximal femur trochanteric/subtrochanteric fracture lucency visualized. Postoperative changes. Choco Mustafa MD Chest CT 04/30/17 0000 Signed Impressions: Service Date/Time: Sunday, April 30, 2017 09:20 - CONCLUSION: 1. Bilateral pulmonary infiltrates more pronounced within the lower lobes with tiny bilateral pleural effusions. Material seen filling the lower lobe bronchi bilaterally either related to purulent material or perhaps mucus plugging. Deangelo Wren Jr., MD Carotid Artery Ultrasound 04/24/17 0000 Signed Impressions: Service Date/Time: April 09:45 - CONCLUSION: 1. No hemodynamically significant carotid artery stenosis. Arnie Middleton MD Hip X-Ray 04/21/17 0000 Signed Impressions: Service Date/Time: Friday, April 21, 2017 11:36 - CONCLUSION: Fluoroscopic images during placement of intramedullary siomara left femur. Benja Ramsey MD Objective Remarks Gen: 76-year-old female, critically ill currently orotracheally intubated HEENT: Pallor present. Moderate dark ET tube secretions Neck: No JVD, orally intubated. Chest/pulmonary: Diffuse rhonchorous breath sounds bilaterally anterior- posterior. Diminished in bases left greater than right. Chest tube #10 Swedish left-sided -40 cm H2O 225 cc yellow Cardiovascular: RRR. S1, S2 no S4 without murmur GI/abdomen: Distended. Nontender. Hypoactive bowel sounds are present. Extremities: Warm bilaterally, anasarca 2+ upper and lower extremity edema. Incision sites over left hip, thigh ORIF site clean dry and intact. No fluctuation or induration Neuro: Intubated on no sedation. Spontaneous eye opening, stares to left, does not track. Dense right hemiplegia noted. Localizes with left upper extremity, Withdraws LLE. No change. Pupils 2 mm, react. Date of Insertion: May 02, 2017 A/P Assessment and Plan Neuro/Psych: Left MCA CVA - 12 mm of [id number] subfalcine herniation - right-sided hemiplegia Acute encephalopathy History CVA Follow neuro status closely. Continue Aspirin 325 mg by mouth daily Patient was not a candidate for thrombolysis per discussion with neurology and radiology. Repeat head CT 05/05 showed slight improvement in the midline shift and mass effect Neurosurgery consulted 04/30- Dr. López, recommended conservative management Neurology following - Dr. Malave On morphine 1-2 every 3 hours when necessary pain Cardiovascular: Hypertension IV fluids currently on hold due to edema As needed Antihypertensives to keep systolic blood pressure less than to 180 mmHg Echocardiogram 04/24 - EF 50 to 55%. Mild concentric LVH. Pulmonary: Acute hypoxic respiratory failure - aspiration possible HCAP Large left pneumothorax status post #10 Swedish chest tube 05/07 PRVC 16/450// Ventilator bundle Ipratropium/albuterol aerosols every 6 hours with albuterol aerosols every 2 hours. Dyspnea Intubated on 04/30/17 for worsening hypoxemic respiratory failure, aspiration pneumonia Chest x-ray shows 05/08 revealed increasing infiltrate/small pleural effusion left side. Right-sided chest tube in place. Small subcutaneous emphysema. CT of the chest 04/30/17 showed severe bibasilar consolidation, and evidence of aspiration GI/liver: Elevated transaminases Hypoalbuminemia Moderate to severe protein calorie malnutrition Dobbhoff for tube feedings and medications. Continue tube feeding with Glucerna 1.5 goal 45 cc an hour On hold 05/08 due to possible cholecystostomy tube placement depending on ultrasound gallbladder Lansoprazole 30 mg daily for GI regimen Docusate sodium 100 twice a day, Senokot 8.6 twice a day, polyethylene glycol 17 grams twice a day and lactulose 30 cc 4 times a day Evaluate CT abdomen/pelvis 05/07 - mild ascites. Large left hemothorax. Right greater than left pleural effusion. Avoid hepatotoxic drugs Endocrine: Diabetes mellitus Detemir 15 units subcutaneous every 12 hours. Currently hold while nothing by mouth Sliding scale insulin Accu-Cheks to maintain euglycemia/low regimen Holding glimepiride 4 mill grams by mouth daily /Renal/FEN: Hypopotassemia Strict intake output, monitor and replete electrolytes, follow BUN/creatinine. Leavitt catheter placed for urinary retention on 04/26. Recheck potassium 18 hours. 80 mEq potassium chloride by tube, 30 mEq IV 1 now Heme: Chronic Rivaroxaban use Leukocytosis Normocytic anemia Thrombocytosis Follow CBC and coags. On subcutaneous enoxaparin Hemoglobin currently stable. No indications for transfusion of blood proximally at this time ID: MSSA bacteremia Serratia/staph aureus pneumonia C glabrata UTI Currently on IV levofloxacin, by mouth metronidazole and micafungin Pertinent cultures Urine culture 04/26/17 sofie glabrata Blood culture 04/29/17 1 out of 4 bottles staph aureus Sputum culture 04/30/17 staph aureus and Serratia. Blood cultures 2, sputum 1 and urine 05/08 pending MSK: Left Intertroch Hip Fx s/p IMN - POD 14 Vitamin D deficiency WBAT DC ginger today redress with Xeroform/Primapore Prophylaxis: SCDs. Enoxaparin 40 mg sq daily-cleared by Dr. Ananda SANDS - lansoprazole Critical care Time 30 minutes Sal Carney MD May 08, 2017 10:20
--- NOTE | 2017-05-08 11:56 | RADRPT ---
EXAM DATE/TIME: 05/08/2017 08:23 [facility] COMPARISON: CT ABDOMEN & PELVIS W CONTRAST, May 07, 2017, 13:23. CHEST SINGLE AP, May 08, 2017, 9:48 . INDICATIONS : Gallstones. Cholecystitis. MEDICAL HISTORY : Hypertension. CVA. Confusion. Incontinence. Diabetes. Anxiety. SURGICAL HISTORY : Blood transfusions. ENCOUNTER: Initial ACUITY: 1 day PAIN SCORE: Nonresponsive. LOCATION: Right upper quadrant MEASUREMENTS: LIVER: 15.9 cm length COMMON DUCT: 5 mm RIGHT KIDNEY: 11.3 x 4.7 x 6.0 cm FINDINGS: Right pleural effusion. Trace fluid in Morison's pouch LIVER: Normal echotexture without focal lesion or ductal dilatation. COMMON DUCT: No intraluminal mass or stone visualized. GALLBLADDER: Contains no stones, demonstrates no wall thickening or pericholecystic fluid. PANCREAS: The visualized portions are within normal limits. RIGHT KIDNEY: No evidence of hydronephrosis, stone, or mass. CONCLUSION: Focally unremarkable appearance of the gallbladder Obdulio Chun MD on May 08, 2017 at 11:43 Board Certified Radiologist. This report was verified electronically.
[2017-05-08] MEDS: POTASSIUM CHLOR 10 MEQ PREMIX 100 ML IV SCH ×3 (12:01→15:24)
--- NOTE | 2017-05-08 12:07 | RADRPT ---
EXAM DATE/TIME: 05/08/2017 09:48 [facility] COMPARISON: CHEST SINGLE AP, May 07, 2017, 15:51. INDICATIONS : Pneumothorax. MEDICAL HISTORY : Stroke. Hypertension. Diabetes. SURGICAL HISTORY : None. ENCOUNTER: Subsequent ACUITY: 3 weeks PAIN SCORE: Non-responsive. LOCATION: Left chest FINDINGS: A small left chest is again noted within the lateral aspect of the mid lung field. There is no recur ring pneumothorax on the left. Minimal subcutaneous emphysema is noted within the left chest. Diffu se patchy opacity is noted throughout the right lung and to a lesser extent within the left perihilar region consistent with probable pneumonia and/or pulmonary vascular congestion. The endotracheal tu be has its tip approximately 1 cm above the valerie. This could be pulled back 2 cm for a more optima l position. A feeding tube is noted with its tip at least to the level of distal stomach. The tip i s actually not visualized on this examination. Degenerative changes and scoliosis of the thoracic sp ine are noted. The heart is stable. CONCLUSION: 1. No recurrent pneumothorax. 2. Endotracheal tube is 1 cm above the valerie. This could be pulled back 2 cm for a more optimal po sition. 3. Stable diffuse consolidation of the right lung and to a much lesser extent left perihilar region consistent with pneumonia and/or asymmetric pulmonary vascular congestion. 4. Degenerative changes and scoliosis of the thoracic spine. Enzo Farooq MD on May 08, 2017 at 11:58 Board Certified Radiologist. This report was verified electronically.
[2017-05-08] MEDS: ENOXAPARIN SODIUM 40 MG/0.4 ML SYRINGE SQ SCH (12:11)
[2017-05-08] MEDS: ASPIRIN 325 MG TAB DOBHOFF SCH (12:11)
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
--- NOTE | 2017-05-08 15:00 | HHI.PR ---
Review/Management Diagnosis large left MCA stroke-exam improved today Diagnosis/Plan: Subjective Subjective Comments No acute events reported Active Medications Current Medications Medications (Trade) Dose Ordered Sig/Zeferino Route Start Time Stop Time Status Last Admin (Zofran Inj) 4 mg Q6H PRN IV PUSH 04/20/17 15:00 04/30/17 02:28 (Morphine Inj) 1 mg Q3H PRN IV 04/20/17 17:15 04/28/17 18:15 (Morphine Inj) 2 mg Q3H PRN IV 04/20/17 17:15 04/30/17 02:29 (Narcan Inj) 0.4 mg UNSCH PRN IV 04/20/17 17:15 (Milk Of Magnesia Liq) 30 ml Q12H PRN PO 04/20/17 20:30 (Senokot) 17.2 mg Q12H PRN PO 04/20/17 20:30 04/23/17 22:55 (Dulcolax Supp) 10 mg DAILY PRN RECTAL 04/20/17 20:30 (Oscal-D 250-125) 250 mg TID PO 04/21/17 13:00 05/08/17 12:06 (Vitamin D3) 5,000 units DAILY PO 04/22/17 09:00 05/08/17 09:42 (NS Flush) 2 ml BID IV FLUSH 04/24/17 21:00 05/08/17 09:00 (NS Flush) 2 ml UNSCH PRN IV FLUSH 04/24/17 09:30 (Glucagon Inj) 1 mg UNSCH PRN IM/SQ 04/24/17 18:15 (Aspirin) 325 mg DAILY DOBHOFF 04/27/17 09:00 05/08/17 12:11 (D50w (Syr) Inj) 25 ml UNSCH PRN IV 04/26/17 20:30 05/05/17 00:00 (Lopressor Inj) 5 mg Q5M PRN IV PUSH 04/27/17 04:00 05/03/17 18:26 Potassium Chloride 100 ml @ 50 mls/hr Q2H PRN IV 04/27/17 08:45 Potassium Chloride 100 ml @ 50 mls/hr Q2H PRN IV 04/27/17 08:45 05/08/17 10:05 (K-Lyte Cl Eff) 50 meq UNSCH PRN PO 04/27/17 08:45 Potassium Chloride 100 ml @ 25 mls/hr UNSCH PRN IV 04/27/17 08:45 05/04/17 19:07 Potassium Chloride 100 ml @ 50 mls/hr Q2H PRN IV 04/27/17 08:45 04/29/17 12:15 Magnesium Sulfate 4 gm/Sodium Chloride 100 ml @ 50 mls/hr UNSCH PRN IV 04/27/17 08:45 (Mag-Ox) 800 mg UNSCH PRN PO 04/27/17 08:45 Magnesium Sulfate 2 gm/Sodium Chloride 100 ml @ 50 mls/hr UNSCH PRN IV 04/27/17 08:45 (K-Phos) 2,000 mg Q4H PRN PO 04/27/17 08:45 04/28/17 15:38 Sodium Phosphate 30 mmol/Sodium Chloride 250 ml @ 42 mls/hr UNSCH PRN IV 04/27/17 08:45 04/27/17 23:59 (K-Phos) 2,000 mg UNSCH PRN PO/TUBE 04/27/17 08:45 05/08/17 06:32 Potassium Phosphate 30 mmol/ Sodium Chloride 260 ml @ 42 mls/hr UNSCH PRN IV 04/27/17 08:45 05/04/17 20:54 (NovoLOG SUPPLEMENTAL SCALE) 1 ACHS SLIDING SCALE SQ 04/28/17 16:00 05/08/17 12:10 (Flagyl) 500 mg Q8HR DOBHOFF 04/29/17 14:00 05/08/17 12:06 (Lovenox Inj) 40 mg Q24H SQ 05/01/17 08:00 05/08/17 12:11 Levofloxacin/ Dextrose 150 ml @ 100 mls/hr Q24H IV 05/04/17 09:00 05/08/17 09:42 (Colace Liq) 100 mg Q12HR PO 05/07/17 21:00 05/08/17 09:42 (Senna Liq) 8.8 mg BID OG-TUBE 05/07/17 21:00 05/08/17 09:42 (Lactulose Liq) 30 ml QID PO 05/07/17 18:00 05/08/17 12:06 (Miralax) 17 gm BID OG-TUBE 05/07/17 21:00 05/08/17 09:42 (Albuterol Neb) 2.5 mg Q2HR NEB PRN NEB 05/07/17 13:00 (Prevacid Odt) 30 mg DAILY NG 05/08/17 09:00 05/08/17 09:42 (Levemir Inj) 15 units Q12H SQ 05/07/17 21:00 (Duoneb Neb) 1 ampule Q6HR NEB NEB 05/08/17 16:00 Allergies Allergies Coded Allergies No Known Allergies (Unverified04/20/17) Review of Systems All other ROS: Unable to obtain Exam I&O / VS 05/08/17 05/08/17 05/09/17 14:59 22:59 06:59 Intake Total 450 ml Balance 450 ml IV Total 450 ml Vital Signs Date Time Temp Pulse Resp B/P (MAP) Pulse Ox O2 Delivery O2 Flow Rate FiO2 05/08/17 13:35 97 50 05/08/17 09:59 94 50 05/08/17 07:59 94 50 05/08/17 06:00 98 05/08/17 04:17 94 50 05/08/17 04:00 50 05/08/17 04:00 99.2 94 22 109/62 (78) 95 05/08/17 04:00 94 05/08/17 03:00 94 50 05/08/17 02:00 104 05/08/17 01:52 97 40 05/08/17 00:00 50 05/08/17 00:00 98.7 110 17 115/78 (90) 94 05/08/17 00:00 110 05/07/17 22:56 97 50 05/07/17 22:00 114 05/07/17 20:02 96 50 05/07/17 20:00 92 05/07/17 20:00 98.5 92 17 145/79 (101) 96 05/07/17 20:00 50 05/07/17 19:00 97 Mechanical Ventilator 50 05/07/17 18:00 95 05/07/17 16:00 97.6 85 15 148/65 (92) 100 05/07/17 16:00 50 05/07/17 16:00 85 05/07/17 15:49 98 60 Cardiology: Normal rate (Tachycardic) Musculoskeletal: ROM (within normal limits) Exam Comments Intubated, more alert and follows commands. CN--EOM--intact.. PERRL, Right upper motor neuron CN 7 palsey. MOTOR--chartered accountant on left , no tray setter on right Objective Micro and Labs Laboratory Tests Test 05/07/17 21:00 05/08/17 04:20 05/08/17 04:44 Lactate Dehydrogenase 532 Total Creatine Kinase 82 Amylase Level 21 Lipase 48 Urine Color YELLOW Urine Turbidity CLEAR Urine pH 5.0 Urine Specific [place] 1.018 Urine Protein NEG Urine Glucose (UA) NEG Urine Ketones NEG Urine Occult Blood SMALL Urine Nitrite NEG Urine Bilirubin NEG Urine Urobilinogen LESS THAN 2.0 Urine Leukocyte Esterase SMALL Urine RBC 7 Urine WBC 3 Urine Squamous Epithelial Cells 2 Urine Transitional Epithelial Cells <1 Urine Bacteria RARE Urine Hyaline Casts 1 Urine Mucus FEW Microscopic Urinalysis Comment CATH-CULTURE IND White Blood Count 14.5 Red Blood Count 2.38 Hemoglobin 7.5 Hematocrit 23.1 Mean Corpuscular Volume 96.7 Mean Corpuscular Hemoglobin 31.6 Mean Corpuscular Hemoglobin Concent 32.7 Red Cell Distribution Width 14.4 Platelet Count 472 Mean Platelet Volume 9.3 Neutrophils (%) (Auto) 89.1 Lymphocytes (%) (Auto) 8.3 Monocytes (%) (Auto) 2.2 Eosinophils (%) (Auto) 0.3 Basophils (%) (Auto) 0.1 Neutrophils # (Auto) 12.9 Lymphocytes # (Auto) 1.2 Monocytes # (Auto) 0.3 Eosinophils # (Auto) 0.0 Basophils # (Auto) 0.0 CBC Comment AUTO DIFF Differential Total Cells Counted 100 Neutrophils % (Manual) 86 Band Neutrophils % 6 Lymphocytes % 6 Neutrophils # (Manual) 13.6 Metamyelocytes 2 Nucleated Red Blood Cells 2 Differential Comment FINAL DIFF MANUAL Platelet Estimate HIGH Platelet Morphology Comment NORMAL Polychromasia 2.4 Stomatocytes 1+ Blood Urea Nitrogen 29 Creatinine 0.44 Random Glucose 104 Total Protein 5.4 Albumin 1.4 Calcium Level 7.8 Phosphorus Level 2.2 Magnesium Level 2.4 Alkaline Phosphatase 1542 Aspartate Amino Transf (AST/SGOT) 45 Alanine Aminotransferase (ALT/SGPT) 39 Total Bilirubin 0.5 Sodium Level 146 Potassium Level 2.5 Chloride Level 107 Carbon Dioxide Level 31.8 Anion Gap 7 Estimat Glomerular Filtration Rate 140 Date/Time Source Procedure Growth Status 05/08/17 04:44 Blood Peripheral Aerobic Blood Culture Pending Received 05/08/17 04:44 Blood Peripheral Anaerobic Blood Culture Pending Received 05/07/17 21:30 Sputum Endotracheal Gram Stain - Final Resulted 05/07/17 21:30 Sputum Endotracheal Sputum Culture - Preliminary NO GROWTH IN 24 HOURS. Resulted 05/08/17 04:20 Urine Catheterized Urine Urine Culture Pending Received Marcio Malave PhD May 08, 2017 15:00
--- NOTE | 2017-05-08 15:49 | HHI.FPPN ---
Subjective Remarks Vital signs reviewed; HR generally 95 - 114. Generally normotensive; O2 sats in the mid 90s on mechanical ventilation with FiO2 40 - 50 percent Discussed with nursing staff; patient generally doing well. Patient had large bowel movement yesterday. Patient's hypokalemia this morning (K 2.5) repleted. Patient with LFT improvement Ms. Hein awake/alert with ability to watch care providers to her left. Exam performed with Dr. Camacho; patient reportedly would squeeze hand and move L toes. (Bernabe Aldana MD, R3) Objective Vitals Vital Signs Date Time Temp Pulse Resp B/P (MAP) Pulse Ox O2 Delivery O2 Flow Rate FiO2 05/08/17 13:35 97 50 05/08/17 09:59 94 50 05/08/17 07:59 94 50 05/08/17 06:00 98 05/08/17 04:17 94 50 05/08/17 04:00 50 05/08/17 04:00 99.2 94 22 109/62 (78) 95 05/08/17 04:00 94 05/08/17 03:00 94 50 05/08/17 02:00 104 05/08/17 01:52 97 40 05/08/17 00:00 50 05/08/17 00:00 98.7 110 17 115/78 (90) 94 05/08/17 00:00 110 05/07/17 22:56 97 50 05/07/17 22:00 114 05/07/17 20:02 96 50 05/07/17 20:00 92 05/07/17 20:00 98.5 92 17 145/79 (101) 96 05/07/17 20:00 50 05/07/17 19:00 97 Mechanical Ventilator 50 05/07/17 18:00 95 05/07/17 16:00 97.6 85 15 148/65 (92) 100 05/07/17 16:00 50 05/07/17 16:00 85 05/07/17 15:49 98 60 I/O 05/07/17 05/07/17 05/07/17 05/08/17 05/08/17 05/08/17 07:00 15:00 23:00 07:00 15:00 23:00 Intake Total 1373 ml 100 ml 1208 ml 248 ml 550 ml Output Total 325 ml 1280 ml 1450 ml Balance 1048 ml 100 ml -72 ml -1202 ml 550 ml IV Total 816 ml 100 ml 600 ml 550 ml Tube Feeding 437 ml 488 ml 128 ml Tube Irrigant 120 ml Other 120 ml 120 ml Output Urine Total 325 ml 1100 ml 1400 ml Chest Tube Drainage Total 180 ml 50 ml # Bowel Movements 1 2 2 (Bernabe Aldana MD, R3) Result Diagram: 05/08/174 05/08/174 Imaging Last Impressions Gall Bladder Ultrasound 05/08/17 0000 Signed Impressions: Service Date/Time: May 08:23 - CONCLUSION: Focally unremarkable appearance of the gallbladder Obdulio Chun MD Chest X-Ray 05/07/17 0400 Signed Impressions: Service Date/Time: Sunday, May 07, 2017 04:38 - CONCLUSION: 1. Stable Low-lying ETT with tip approximately 1 cm above the valerie. 2. Mild interval progression of bilateral airspace consolidation exaggerated by patient rotation. 3. Increased small left pleural effusion. Alejo De La Vega MD Abdomen/Pelvis CT 05/07/17 0000 Signed Impressions: Service Date/Time: Sunday, May 07, 2017 13:23 - CONCLUSION: 1. Large left pneumothorax. 2. Bilateral lower lobe consolidation and bilateral moderate size pleural effusions. 3. Significant soft tissue thickening of the right lateral chest wall and left gluteus muscle. 4. Mild ascites. The findings were called to Dr. Carney. Deangelo Zamora MD Head CT 05/06/17 0000 Signed Impressions: Service Date/Time: Saturday, May 06, 2017 04:18 - CONCLUSION: 1. Evolving large left-sided MCA territory infarct with minimally improved ldld-[id number]-osnfy subfalcine shift. 2. No intercurrent hemorrhage or other acute abnormality. Alejo De La Vega MD Abdomen X-Ray 05/06/17 0000 Signed Impressions: Service Date/Time: Saturday, May 06, 2017 17:42 - CONCLUSION: Dobbhoff feeding tube tip near the gastroduodenal junction. Obdulio Simms MD Hip and Pelvis X-Ray 05/05/17 0000 Signed Impressions: Service Date/Time: Friday, May 05, 2017 10:59 - CONCLUSION: Left proximal femur trochanteric/subtrochanteric fracture lucency visualized. Postoperative changes. Choco Mustafa MD Chest CT 04/30/17 0000 Signed Impressions: Service Date/Time: Sunday, April 30, 2017 09:20 - CONCLUSION: 1. Bilateral pulmonary infiltrates more pronounced within the lower lobes with tiny bilateral pleural effusions. Material seen filling the lower lobe bronchi bilaterally either related to purulent material or perhaps mucus plugging. Deangelo Wren Jr., MD Carotid Artery Ultrasound 04/24/17 0000 Signed Impressions: Service Date/Time: , April 24, 2017 09:45 - CONCLUSION: 1. No hemodynamically significant carotid artery stenosis. Arnie Middleton MD Hip X-Ray 04/21/17 0000 Signed Impressions: Service Date/Time: Friday, April 21, 2017 11:36 - CONCLUSION: Fluoroscopic images during placement of intramedullary siomara left femur. Benja Ramsey MD Objective Remarks CONSTITUTIONAL/GEN: Nonverbal, lying in bed. Intubated on ventilator, receiving tube feeds. NAD LUNGS: coarse breath sounds suspected referred from ventilator; equal bilaterally -Chest tube insertion not inspected; 230 ml output per EMR CARDIOVASCULAR: Regular rate vs tachycardic with regular rhythm. Upper and lower extremity edema. GI/ABD: distended and tense without masses, without organomegaly. Firmness to palpation seemed worse in L upper and lower quadrants NEURO: Intubated; eyes open. Patient seemingly favored L side to midline. Patient would not actively follow commands but exam performed by Dr. Camacho also ; would squeeze w/ L fingers : Leavitt not inspected; 2730 ml output per EMR MUSC: Bandages on lateral left hip and thigh are clean dry and intact. SCDs on bilateral lower extremities. Pedal pulses weak. SKIN: No obvious rashes on exposed skin Procedures ORIF 04/21/17 Intubation 04/30/17 (Bernabe Aldana MD, R3) Date of Insertion: May 02, 2017 (Bernabe Aldana MD, R3) A/P Assessment and Plan 76 y/o female with HTN, DM, CVA admitted for DKA and hip fracture. Now with massive left MCA stroke, right hemiplegia and midline shift resolving. Neuro and custom harvester consulted. Working with palliative care and family for goals of care. 05/07 CT abdomen/pelvis shows large pneumothorax on left side decompressed with chest tube. -Overall poor prognosis, pursuing goals of care discussion with daughter (HCPOA) , but at this time; daughter wishes continued intervention per discussion with [facility] attending Discharge Planning Pending stroke progression and discussion for goals of care (Bernabe Aldana MD, R3) Attending Attestation Patient seen and examined. Case reviewed and discussed Agree with plan of care as discussed with me and documented in the resident note. (Angélica Malik MD) Problem List: (1) Acute CVA (cerebrovascular accident) ICD Codes: I63.9 - Cerebral infarction, unspecified Status: Acute Plan: Patient found minimally responsive with neurological deficits around 0820 04/24. Stat CT of head was ordered, which showed large left MCA infarct. Diffuse edema throughout the left MCA distribution, suggest completed infarct. This was discussed and was not a candidate for intracranial intervention. CT (04/30): Reduction in midline shift to 11mm. Unchanged large left MCA infarction. CT head (05/06) shows: Evolving large left-sided MCA territory infarct with minimally improved bjxu-[id number]-grasz subfalcine shift. No intercurrent hemorrhage or other acute abnormality. Echocardiogram- The left ventricular systolic function is low normal with an estimated ejection fraction in the range of 50-55%. Mild concentric left ventricular hypertrophy. Normal left ventricular size. Pqbqd-[id number]-elcp mitral valve regurgitation. Carotid Artery US- No hemodynamically significant carotid stenosis -Consulted custom harvester, appreciate recs -Intubated/sedated; does not recommend tracheostomy -IV hydration, watch for hypotension. -Keep systolic to less than 220 -Lactated Ringer's reduced to 75 ml/hr -Poor prognosis -Neurosurgery consulted -Recommended conservative management -Keep Na in 145-154 range -Tube feeds: Glucerna 1.5 mLs for diet via Dobbhoff tube -Skimmer Scoop Operator consult for management and recs -Consult palliative care-appreciate recs -Case discussed with daughter in-person about goals of care, limited treatment options, and poor prognosis. -Daughter continues to want aggressive care. Wishes to continue aggressive medical treatment despite prognosis -Neurology consulted-appreciate recs -Rectal ASA -Lovenox 40mg daily (2) Sepsis ICD Codes: A41.9 - Sepsis, unspecified organism Status: Acute Plan: Impression: Pt meets SIRS criteria with tachycardia, leukocytosis Persistent leukocytosis but downtrending: WBC 05/05 20.6 K, 05/06 22.1 K,05/08 14.5 K Cultures: 05/07 Blood cultures and sputum cultures negative to date 04/30 Sputum culture with staph, Serratia 04/29 blood culture with staph -See antibiotics as below -Culture results as below -Monitor vitals (3) HCAP (healthcare-associated pneumonia) ICD Codes: J18.9 - Pneumonia, unspecified organism Status: Acute Plan: Suspect possible HCAP. Persistent leukocytosis. Possible aspiration Chest CT (04/30): Bilateral pulmonary infiltrates more pronounced within lower lobes with b/l pleural effusions. Material in lower lobe bronchi b/l, purulent or mucus plugging 04/30 Sputum culture showing staph aureus and Serratia Marcescens Legionella and strep pneumo urine tests negative CXR 05/02: Increased airspace opacity bilaterally. The pattern may represent pulmonary edema. There is likely a left pleural effusion. CXR 05/08: Stable diffuse consolidation of right warm to much lesser extent left perihilar region consistent with pneumonia or asymmetric pulmonary vascular congestion Continue antibiotic therapy -Levaquin IV 750 mg (05/04- ) HCAP -Flagyl 500mg q8H (04/29 - ) for aspiration -Repeat blood cultures (05/07) pending , with 09/04 positive; possible contaminant -Duonebs treatments q6h Antibiotic History -Discontinued Cefepime 2g IV daily (04/30 - d/c 05/04 ) -Discontinued Vancomycin IV (04/30 - d/c 05/04 ) (4) Yeast UTI ICD Codes: B37.49 - Other urogenital candidiasis Status: Resolved Plan: UA showed glucose, large number of leukocytes esterase, innumerable WBCs , rare bacteria, and few yeast Urine culture shows Lea Glabrata; however, high GGT and Alk Phos require reducing hepatotoxic drugs -D/C Micafungin 100mg IV daily as it is hepatically metabolized (5) Abdominal distension ICD Codes: R14.0 - Abdominal distension (gaseous) Status: Acute Plan: Impression: Abdominal distension evident on exam 05/05 with serial KUBs neg for etiology. In association with transaminase elevation and Alk P >1k and GGT elevation. s/p large BM 05/07 per nursing staff 05/06 - CT abdomen/pelvis- large left pneumothorax, bilateral lower lobe consolidation and bilateral moderate-sized pleural effusions, significant soft tissue thickening of right lateral chest wall and left gluteus. Mild ascites -Continue to monitor at this time -Continue to follow LFTs (6) Type 2 diabetes mellitus ICD Codes: E11.9 - Type 2 diabetes mellitus without complications Status: Chronic Plan: Admitted for DKA which has now resolved. Hemoglobin A1C is 12.9. Diabetes Type I is uncontrolled. -Continue Levemir 10 units BID due to hypoglycemia at higher dose -Medium dose insulin sliding scale with goal blood glucose between 140 and 180 -Glucerna for NG tube feedings -Regular accuchecks q4H (7) Atrial fibrillation ICD Codes: I48.91 - Unspecified atrial fibrillation Status: Acute Plan: Hx of intermittent Afib. Resolved with administration of Lopressor. -Continue to monitor -Lopressor PRN (8) Hip fracture ICD Codes: S72.009A - Fracture of unspecified part of neck of unspecified femur , initial encounter for closed fracture Status: Acute Plan: S/P left hip reduction and intramedullary nail fixation on 04-21-17 -Consult orthopedics-appreciate recs * WBAT * Daily dressing changes -Calcium/Vitamin D -Fluids as above -Tylenol, morphine PRN pain (9) Hypertension ICD Codes: I10 - Essential (primary) hypertension Status: Acute Plan: IV hydration. BPs wnl overnight -Continue fluids as above -Antihypertensives to keep SBP<180 (10) Fluid overload ICD Codes: E87.70 - Fluid overload, unspecified Status: Acute Plan: Battery Starter noted fluid overload -Bumex IV for diuresis -Metolazone 2.5mg (11) Pneumothorax ICD Codes: J93.9 - Pneumothorax, unspecified Plan: Impression: Noticed on 05/06 CT abdomen/pelvis- large left pneumothorax, bilateral lower lobe consolidation and bilateral moderate-sized pleural effusions. S/P chest tube placement 05/07 231 ml output overnight -Continue to monitor output at this time (12) On mechanically assisted ventilation ICD Codes: Z99.11 - Dependence on respirator [ventilator] status Plan: Impression: On mechanical ventilation; TV 450ml, 40% FiO2, PIP 34, PEEP 5 -Continue; weaning trials as tolerated (13) Elevated LFTs ICD Codes: R79.89 - Other specified abnormal findings of blood chemistry Plan: Impression: Recent LFT elevations over the past week with alkaline phosphatase gradually rising from 351-1931 and AST rising from 50s to 217. Liver/biliary etiology expected as GGT 787. Gallbladder ultrasound obtained by custom harvester 05/08; focally unremarkable in appearance of gallbladder -Monitor at this time (14) Fluids, Electrolytes, and Nutrition Status: Acute Plan: Fluids: IVF as above Electrolyte: on electrolyte protocol Nutrition: Glucerna tube feeds DVT ppx: SCDs/lovenox 40 mg daily GI ppx: protonix Colace, fleet enema mineral oil (Bernabe Aldana MD, R3) Problem Qualifiers (1) Sepsis: Qualified Codes: A41.9 - Sepsis, unspecified organism (2) Type 2 diabetes mellitus: Qualified Codes: E11.9 - Type 2 diabetes mellitus without complications (3) Atrial fibrillation: Qualified Codes: I48.0 - Paroxysmal atrial fibrillation (4) Hip fracture: (5) Hypertension: Qualified Codes: I10 - Essential (primary) hypertension (6) Fluid overload: Qualified Codes: E87.79 - Other fluid overload Bernabe Aldana MD, R3 May 08, 2017 15:49 Angélica Mlaik MD May 09, 2017 08:26
[2017-05-08 21:48] LABS: AUTOMATED NEUTROPHIL # 13.6 TH/MM3 (1.8-7.7); BASOPHIL % 0.1 % (0.0-2.0); EOSINOPHIL % 0.1 % (0.0-4.0); HEMATOCRIT 23.8 % (35.0-46.0); HEMOGLOBIN 7.7 GM/DL (11.6-15.3); LYMPH % 5.2 % (9.0-44.0); LYMPHOCYTE # 0.8 TH/MM3 (1.0-4.8); MEAN CELL VOLUME 98.2 FL (80.0-100.0); MEAN CORPUSCULAR HEMOGLOBIN 31.8 PG (27.0-34.0); MEAN CORPUSCULAR HGB CONC 32.4 % (32.0-36.0); MEAN PLATELET VOLUME 9.4 FL (7.0-11.0); MONO % 2.5 % (0.0-8.0); MONOCYTE # 0.4 TH/MM3 (0-0.9); NEUT % 92.1 % (16.0-70.0); PLATELET COUNT 482 TH/MM3 (150-450); RED BLOOD COUNT 2.43 MIL/MM3 (4.00-5.30); RED CELL DISTRIBUTION WIDTH 14.9 % (11.6-17.2); WHITE BLOOD COUNT 14.7 TH/MM3 (4.0-11.0)
[2017-05-09] VITALS (19 sets, daily range): BP systolic 130–148; BP diastolic 60–73; PULSE 85–111; RESP 14–24; TEMP 97–98.5; O2SAT 90–100
[2017-05-09] MEDS: POTASSIUM CHLOR 20 MEQ PREMIX 100 ML IV PRN ×6 (01:00→19:17)
[2017-05-09] MEDS: RESP: ALBUTEROL 2.5 MG/IPRATROPIUM 0.5 MG NEB (SCH) NEB ×4 (02:54→20:24)
[2017-05-09] MEDS: metroNIDAZOLE 500 MG TAB DOBHOFF SCH ×3 (05:24→21:19)
[2017-05-09 05:53] LABS: AUTOMATED NEUTROPHIL # 12.1 TH/MM3 (1.8-7.7); BASOPHIL # 0.1 TH/MM3 (0-0.2); BASOPHIL % 0.5 % (0.0-2.0); EOSINOPHIL % 0.3 % (0.0-4.0); HEMATOCRIT 24.4 % (35.0-46.0); HEMOGLOBIN 7.6 GM/DL (11.6-15.3); LYMPH % 7.8 % (9.0-44.0); MEAN CORPUSCULAR HEMOGLOBIN 30.8 PG (27.0-34.0); MEAN CORPUSCULAR HGB CONC 31.4 % (32.0-36.0); MEAN PLATELET VOLUME 8.7 FL (7.0-11.0); MONO % 2.3 % (0.0-8.0); MONOCYTE # 0.3 TH/MM3 (0-0.9); NEUT % 89.1 % (16.0-70.0); PLATELET COUNT 526 TH/MM3 (150-450); RED BLOOD COUNT 2.49 MIL/MM3 (4.00-5.30); RED CELL DISTRIBUTION WIDTH 15.2 % (11.6-17.2); WHITE BLOOD COUNT 13.5 TH/MM3 (4.0-11.0)
[2017-05-09 06:33] LABS: ALKALINE PHOSPHATASE 1217 U/L (45-117); ALT (GPT) 32 U/L (10-53); PHOSPHORUS 2.2 MG/DL (2.5-4.9); TOTAL BILIRUBIN ADULT 0.4 MG/DL (0.2-1.0); TOTAL PROTEIN 5.4 GM/DL (6.4-8.2)
[2017-05-09 06:42] LABS: ALBUMIN 1.3 GM/DL (3.4-5.0); AST (GOT) 42 U/L (15-37); BICARBONATE 31.9 MEQ/L (21.0-32.0); BLOOD UREA NITROGEN 27 MG/DL (7-18); CALCIUM 7.7 MG/DL (8.5-10.1); CHLORIDE 106 MEQ/L (98-107); CREATININE 0.51 MG/DL (0.50-1.00); GLOMERULAR FILTRATION RATE 118 ML/MIN (>89); GLUCOSE,RANDOM 149 MG/DL (74-106); MAGNESIUM 2.3 MG/DL (1.5-2.5); SODIUM (NA) 146 MEQ/L (136-145)
[2017-05-09] MEDS: INSULIN ASPART SUPPLEMENTAL SCALE SQ SCH ×4 (06:49→21:00)
[2017-05-09] MEDS: SODIUM CHLORIDE 0.9% FLUSH 5 ML FLUSH IV FLUSH SCH ×2 (08:09→21:21)
--- NOTE | 2017-05-09 08:24 | RADRPT ---
EXAM DATE/TIME: 05/09/2017 07:30 [facility] COMPARISON: CHEST SINGLE AP, May 08, 2017, 9:48. INDICATIONS : Pneumonia. MEDICAL HISTORY : Stroke. Hypertension Diabetes, Pneumothorax. SURGICAL HISTORY : None. ENCOUNTER: Subsequent ACUITY: 3 weeks PAIN SCORE: Non-responsive. LOCATION: Bilateral chest FINDINGS: ET tube and feeding tube are in good position. Mild interstitial edema persists. Minimal parenchyma l changes persist right upper lobe and left base. Chest tube is in the subcutaneous tissues on the l eft without pneumothorax. CONCLUSION: Chest tube in subcutaneous tissues on the left without pneumothorax. This can be removed. Minimal interval improvement with less parenchymal changes. Ricardo Middleton MD FACR on May 09, 2017 at 8:21 Board Certified Radiologist. This report was verified electronically.
[2017-05-09] MEDS: ENOXAPARIN SODIUM 40 MG/0.4 ML SYRINGE SQ SCH (08:44)
[2017-05-09] MEDS: LEVOFLOXACIN 750 MG PREMIX INJ 150 ML IV SCH (08:44)
[2017-05-09] MEDS: LANSOPRAZOLE SOLUTAB 30 MG TAB NG SCH (08:45)
[2017-05-09] MEDS: DOCUSATE SODIUM 100 MG/10 ML UDC PO SCH ×2 (08:45→21:00)
[2017-05-09] MEDS: CALCIUM/VITAMIN D 250 MG/125 U TAB PO SCH ×3 (08:45→17:02)
[2017-05-09] MEDS: CHOLECALCIFEROL (VIT D3) 5000 UNIT CAP PO SCH (08:45)
[2017-05-09] MEDS: LACTULOSE SYRUP 20 GM/30 ML CUP PO SCH ×4 (08:45→21:00)
[2017-05-09] MEDS: INSULIN DETEMIR 100 UNITS/ML VIAL SQ SCH ×2 (08:46→21:00)
[2017-05-09] MEDS: ASPIRIN 325 MG TAB DOBHOFF SCH (08:46)
[2017-05-09] MEDS: POLYETHYLENE GLYCOL 17 GM PKG OG-TUBE SCH ×2 (08:46→21:00)
[2017-05-09] MEDS: SENNOSIDES SYRUP 8.8 MG/5 ML CUP OG-TUBE SCH ×2 (08:46→21:00)
[2017-05-09 09:00] LABS: BANDS 17 % (0-6); CORRECTED NUCLEATED RBC 2 /100 WBC (0-0); LYMPHOCYTES 3 % (9-44); METAMYELOCYTES 1 % (0-1); MONOCYTES 3 % (0-8); MYELOCYTES 1 % (0-0); NEUTROPHIL # MANUAL DIFF 12.7 TH/MM3 (1.8-7.7); NUCLEATED RED BLOOD CELL 2 (0-0); POLYS (SEG NEUTROPHILS) 75 % (16-70)
[2017-05-09 09:02] LABS: DOHLE BODIES PRESENT (NONE SEEN); POLYCHROMASIA 4.3 % (0.0-1.9); TOXIC GRANULATION 1+ (NORMAL)
[2017-05-09 10:33] LABS: HEPATITIS A AB IGM NEGATIVE (NEGATIVE); HEPATITIS B CORE AB IGM NEGATIVE (NEGATIVE)
--- NOTE | 2017-05-09 13:52 | HHI.HCPN ---
Reason for visit a. To assist with evaluation and management of symptoms including: Debility and pain. b. To assist medical decision maker(s) with: better understanding of current medical conditions; weighing benefits/burdens of medical treatment options; making medical treatment decisions. . Subjective/Interval History Mrs. Hein date a 76-year-old female with a past medical history of hypertension , diabetes mellitus and CVA who presented to the ED on 04/20/17 via EMS for evaluation of after a fall. Upon ED admission, random glucose 559. Patient underwent Left hip reduction and intramedullary nail fixation on 04/21/17. Clinical course complicated by large left MCA infarct with diffuse edema throughout the left MCA distribution. Neurology, Dr. Malave consulted. Patient not a candidate for intervention, not a candidate for IV TPA. As per neurology "Christina 4Id the prognosis with a stroke of the size is poor". Palliative care consulted for further clarifications of goals of care given poor prognosis. Patient remains in ICU, intubated on mechanical ventilation, day #10. Minimally responsive to verbal or tactile stimuli during my visit, not following commands. Patient currently on 45% FiO2, oxygen saturation in the low 90s. Left sided chest tube/pigtail placed yesterday secondary to pleural effusion. Chest x-ray today revealing minimal interval improvement with less parenchymal changes. Laboratory workup today revealing WBC 13.5, Hgb 7.6, platelet count 526. BUN/creatinine 27/051. Albumin 1.3. Urine culture 05/08/17 negative for nitrites, small leukocytes. Sputum culture 05/07/17 positive for gram-negative rods. ID consulted on 05/07/17 for evaluation of sepsis, MSSA pneumonia, aspiration pneumonia and C.glabrata CAUTI. Patient remains afebrile , stable hemodynamically. . Family/friend interactions Telephone call to patient's daughter Norma. Left message in voicemail. . Advance Directives Living Will: Never completed Health Care Surrogate: Never completed Durable Power of [employer]er: Never completed Advance Directive Specifics Health Care Surrogate(s): No advance directives completed. As per [place] statute, healthcare proxy decision making falls to patient's only daughter Norma Salvador. . Documented care wishes: No living will completed. . Significant change in goals: Goals of care remain unchanged. . Objective Vital Signs Date Time Temp Pulse Resp B/P (MAP) Pulse Ox O2 Delivery O2 Flow Rate FiO2 05/09/17 12:00 89 05/09/17 12:00 45 05/09/17 12:00 98.1 99 16 133/60 (84) 93 05/09/17 11:26 100 45 05/09/17 10:00 94 05/09/17 08:00 45 05/09/17 08:00 98.5 87 24 148/66 (93) 95 05/09/17 08:00 87 05/09/17 07:57 94 55 05/09/17 07:00 91 Mechanical Ventilator 45 05/09/17 06:00 89 05/09/17 04:06 92 45 05/09/17 04:00 98 05/09/17 04:00 98.4 98 14 130/60 (83) 90 05/09/17 04:00 45 05/09/17 02:00 85 05/09/17 01:13 96 45 05/09/17 00:00 45 05/09/17 00:00 90 05/09/17 00:00 98.3 90 14 133/64 (87) 96 05/08/17 22:15 96 45 05/08/17 22:00 93 05/08/17 20:25 99 50 05/08/17 20:00 98.4 91 17 134/64 (87) 100 05/08/17 20:00 50 05/08/17 20:00 91 05/08/17 19:00 98 Mechanical Ventilator 50 05/08/17 18:00 104 05/08/17 16:00 98.3 97 18 108/57 (74) 94 05/08/17 16:00 97 05/08/17 16:00 50 05/08/17 15:38 92 40 05/08/17 14:00 91 Intake & Output 05/09/17 05/09/17 07:00 19:00 Intake Total 792 ml Output Total 495 ml Balance 297 ml IV Total 314 ml Tube Feeding 358 ml Other 120 ml Output Urine Total 475 ml Chest Tube Drainage Total 20 ml # Bowel Movements 4 Physical Exam CONSTITUTIONAL/GENERAL: This is an elderly female resting in bed. Minimally responsive to verbal or tactile stimuli. Orally intubated on mechanical ventilation. Not sedated. TUBES/LINES/DRAINS: PIV's. Dobbhoff to right nare. ETT, Leavitt catheter, left soft wrist restraint. SKIN: No jaundice, rashes, or lesions. Ecchymoses on upper extremities. Skin temperature appropriate. Not diaphoretic. Surgical incision to left hip, covered in dressing. Dressing dry and intact. HEAD: Atraumatic. Normocephalic. EYES: Pupils equal and round and reactive. No scleral icterus. No injection or drainage. ENT: Unable to evaluate hearing secondary to clinical condition. Nose without bleeding or purulent drainage. Moist oral mucosa. Dobbhoff to right nare. NECK: Trachea midline. Supple. CARDIOVASCULAR: Regular rate and rhythm. Peripheral pulses symmetric. RESPIRATORY/CHEST: Symmetric, orally intubated on mechanical ventilation. Expiratory crackles bilaterally. Chest tube to left side. GASTROINTESTINAL: Abdomen soft, round, mildly distended. Bowel sounds present. GENITOURINARY: Without palpable bladder distension. MUSCULOSKELETAL: Extremities without clubbing, cyanosis. Edema to all 4 extremities. NEUROLOGICAL: Minimally responsive to verbal or tactile stimuli. Not sedated. Opening eyes. Not following commands. PSYCHIATRIC: Unable to evaluate secondary to clinical condition. Appears calm. . Diagnostic Tests Laboratory Laboratory Tests Test 05/07/17 04:21 05/07/17 06:05 05/07/17 21:00 05/08/17 04:20 Blood Urea Nitrogen 36 MG/DL (7-18) Creatinine 0.37 MG/DL (0.50-1.00) Random Glucose 239 MG/DL (74-106) Total Protein 5.1 GM/DL (6.4-8.2) Albumin 1.5 GM/DL (3.4-5.0) Calcium Level 7.7 MG/DL (8.5-10.1) Alkaline Phosphatase 1931 U/L (45-117) Aspartate Amino Transf (AST/SGOT) 217 U/L (15-37) Alanine Aminotransferase (ALT/SGPT) 55 U/L (10-53) Gamma Glutamyl Transpeptidase 787 U/L (5-55) Total Bilirubin 1.2 MG/DL (0.2-1.0) Direct Bilirubin 0.8 MG/DL (0.0-0.2) Sodium Level 145 MEQ/L (136-145) Potassium Level 3.9 MEQ/L (3.5-5.1) Chloride Level 109 MEQ/L (98-107) Carbon Dioxide Level 27.8 MEQ/L (21.0-32.0) Anion Gap 8 MEQ/L (5-15) Estimat Glomerular Filtration Rate 171 ML/MIN (>89) Indirect Bilirubin 0.4 MG/DL (0.0-0.8) Blood Gas Puncture Site RT RADIAL Blood Gas Patient Temperature 98.6 Blood Gas HCO3 27 mmol/L (22-26) Blood Gas Base Excess 3.1 mmol/L (-2-2) Blood Gas Oxygen Saturation 95 % (90-100) Arterial Blood pH 7.48 (7.380-7.420) Arterial Blood Partial Pressure CO2 36 mmHg (38-42) Arterial Blood Partial Pressure O2 94 mmHg (61-120) Arterial Blood Oxygen Content 13.4 Vol % (12.0-20.0) Arterial Blood Carboxyhemoglobin 1.6 % (0-4) Arterial Blood Methemoglobin 0.7 % (0-2) Blood Gas Hemoglobin 9.9 G/DL (12.0-16.0) Oxygen Delivery Device VENTILATOR Blood Gas Ventilator Setting SEE COMMENTS Blood Gas Inspired Oxygen 70 % Lactate Dehydrogenase 532 U/L (84-246) Total Creatine Kinase 82 U/L (26-192) Amylase Level 21 U/L (25-115) Lipase 48 U/L (73-393) Urine Color YELLOW (YELLW/STRAW) Urine Turbidity CLEAR (CLEAR) Urine pH 5.0 (5.0-8.5) Urine Specific [place] 1.018 (1.002-1.035) Urine Protein NEG mg/dL (NEG-TRACE) Urine Glucose (UA) NEG mg/dL (NEG) Urine Ketones NEG mg/dL (NEG) Urine Occult Blood SMALL (NEG) Urine Nitrite NEG (NEG) Urine Bilirubin NEG (NEG) Urine Urobilinogen LESS THAN 2.0 MG/DL (LESS Urine Leukocyte Esterase SMALL (NEG) Urine RBC 7 /hpf (0-3) Urine WBC 3 /hpf (0-5) Urine Squamous Epithelial Cells 2 /hpf (0-5) Urine Transitional Epithelial Cells <1 /hpf (NONE) Urine Bacteria RARE /hpf (NONE) Urine Hyaline Casts 1 /lpf (RARE) Urine Mucus FEW /lpf (OCC) Microscopic Urinalysis Comment CATH-CULTURE IND Test 05/08/17 04:44 05/08/17 21:10 05/09/17 04:20 White Blood Count 14.5 TH/MM3 (4.0-11.0) 14.7 TH/MM3 (4.0-11.0) 13.5 TH/MM3 (4.0-11.0) Red Blood Count 2.38 MIL/MM3 (4.00-5.30) 2.43 MIL/MM3 (4.00-5.30) 2.49 MIL/MM3 (4.00-5.30) Hemoglobin 7.5 GM/DL (11.6-15.3) 7.7 GM/DL (11.6-15.3) 7.6 GM/DL (11.6-15.3) Hematocrit 23.1 % (35.0-46.0) 23.8 % (35.0-46.0) 24.4 % (35.0-46.0) Mean Corpuscular Volume 96.7 FL (80.0-100.0) 98.2 FL (80.0-100.0) 98.0 FL (80.0-100.0) Mean Corpuscular Hemoglobin 31.6 PG (27.0-34.0) 31.8 PG (27.0-34.0) 30.8 PG (27.0-34.0) Mean Corpuscular Hemoglobin Concent 32.7 % (32.0-36.0) 32.4 % (32.0-36.0) 31.4 % (32.0-36.0) Red Cell Distribution Width 14.4 % (11.6-17.2) 14.9 % (11.6-17.2) 15.2 % (11.6-17.2) Platelet Count 472 TH/MM3 (150-450) 482 TH/MM3 (150-450) 526 TH/MM3 (150-450) Mean Platelet Volume 9.3 FL (7.0-11.0) 9.4 FL (7.0-11.0) 8.7 FL (7.0-11.0) Neutrophils (%) (Auto) 89.1 % (16.0-70.0) 92.1 % (16.0-70.0) 89.1 % (16.0-70.0) Lymphocytes (%) (Auto) 8.3 % (9.0-44.0) 5.2 % (9.0-44.0) 7.8 % (9.0-44.0) Monocytes (%) (Auto) 2.2 % (0.0-8.0) 2.5 % (0.0-8.0) 2.3 % (0.0-8.0) Eosinophils (%) (Auto) 0.3 % (0.0-4.0) 0.1 % (0.0-4.0) 0.3 % (0.0-4.0) Basophils (%) (Auto) 0.1 % (0.0-2.0) 0.1 % (0.0-2.0) 0.5 % (0.0-2.0) Neutrophils # (Auto) 12.9 TH/MM3 (1.8-7.7) 13.6 TH/MM3 (1.8-7.7) 12.1 TH/MM3 (1.8-7.7) Lymphocytes # (Auto) 1.2 TH/MM3 (1.0-4.8) 0.8 TH/MM3 (1.0-4.8) 1.0 TH/MM3 (1.0-4.8) Monocytes # (Auto) 0.3 TH/MM3 (0-0.9) 0.4 TH/MM3 (0-0.9) 0.3 TH/MM3 (0-0.9) Eosinophils # (Auto) 0.0 TH/MM3 (0-0.4) 0.0 TH/MM3 (0-0.4) 0.0 TH/MM3 (0-0.4) Basophils # (Auto) 0.0 TH/MM3 (0-0.2) 0.0 TH/MM3 (0-0.2) 0.1 TH/MM3 (0-0.2) CBC Comment AUTO DIFF DIFF FINAL AUTO DIFF Differential Total Cells Counted 100 100 Neutrophils % (Manual) 86 % (16-70) 75 % (16-70) Band Neutrophils % 6 % (0-6) 17 % (0-6) Lymphocytes % 6 % (9-44) 3 % (9-44) Neutrophils # (Manual) 13.6 TH/MM3 (1.8-7.7) 12.7 TH/MM3 (1.8-7.7) Metamyelocytes 2 % (0-1) 1 % (0-1) Nucleated Red Blood Cells 2 /100 WBC (0-0) 2 /100 WBC (0-0) Differential Comment FINAL DIFF MANUAL FINAL DIFF MANUAL Platelet Estimate HIGH (NORMAL) HIGH (NORMAL) Platelet Morphology Comment NORMAL (NORMAL) ENLARGED (NORMAL) Polychromasia 2.4 % (0.0-1.9) 4.3 % (0.0-1.9) Stomatocytes 1+ (NORMAL) Blood Urea Nitrogen 29 MG/DL (7-18) 27 MG/DL (7-18) Creatinine 0.44 MG/DL (0.50-1.00) 0.51 MG/DL (0.50-1.00) Random Glucose 104 MG/DL (74-106) 149 MG/DL (74-106) Total Protein 5.4 GM/DL (6.4-8.2) 5.4 GM/DL (6.4-8.2) Albumin 1.4 GM/DL (3.4-5.0) 1.3 GM/DL (3.4-5.0) Calcium Level 7.8 MG/DL (8.5-10.1) 7.7 MG/DL (8.5-10.1) Phosphorus Level 2.2 MG/DL (2.5-4.9) 2.2 MG/DL (2.5-4.9) Magnesium Level 2.4 MG/DL (1.5-2.5) 2.3 MG/DL (1.5-2.5) Alkaline Phosphatase 1542 U/L (45-117) 1217 U/L (45-117) Aspartate Amino Transf (AST/SGOT) 45 U/L (15-37) 42 U/L (15-37) Alanine Aminotransferase (ALT/SGPT) 39 U/L (10-53) 32 U/L (10-53) Total Bilirubin 0.5 MG/DL (0.2-1.0) 0.4 MG/DL (0.2-1.0) Sodium Level 146 MEQ/L (136-145) 146 MEQ/L (136-145) Potassium Level 2.5 MEQ/L (3.5-5.1) 2.6 MEQ/L (3.5-5.1) 3.4 MEQ/L (3.5-5.1) Chloride Level 107 MEQ/L (98-107) 106 MEQ/L (98-107) Carbon Dioxide Level 31.8 MEQ/L (21.0-32.0) 31.9 MEQ/L (21.0-32.0) Anion Gap 7 MEQ/L (5-15) 8 MEQ/L (5-15) Estimat Glomerular Filtration Rate 140 ML/MIN (>89) 118 ML/MIN (>89) Hepatitis A IgM Antibody NEGATIVE (NEGATIVE) Hepatitis B Surface Antigen NEGATIVE (NEGATIVE) Hepatitis B Core IgM Antibody NEGATIVE (NEGATIVE) Hepatitis C Antibody REACTIVE (NEGATIVE) Procalcitonin 0.61 ng/mL (0.00-0.50) Monocytes % 3 % (0-8) Myelocytes 1 % (0-0) Toxic Granulation 1+ (NORMAL) Dohle Bodies PRESENT (NONE SEEN) Result Diagram: 05/09/170 05/09/17 0420 Microbiology Microbiology Date/Time Source Procedure Growth Status 05/08/17 04:44 Blood Peripheral Aerobic Blood Culture - Preliminary NO GROWTH IN 1 DAY Resulted 05/08/17 04:44 Blood Peripheral Anaerobic Blood Culture - Preliminary NO GROWTH IN 1 DAY Resulted 05/07/17 21:00 Blood Peripheral Aerobic Blood Culture - Preliminary NO GROWTH IN 2 DAYS Resulted 05/07/17 21:00 Blood Peripheral Anaerobic Blood Culture - Preliminary NO GROWTH IN 2 DAYS Resulted 05/07/17 21:30 Sputum Endotracheal Gram Stain - Final Resulted 05/07/17 21:30 Sputum Culture - Preliminary Gram Negative Juan Resulted 05/08/17 04:20 Urine Catheterized Urine Urine Culture - Preliminary NO GROWTH IN 24 HOURS. Resulted Imaging Last 48 hours Impressions Chest X-Ray 05/09/17 0000 Signed Impressions: Service Date/Time: Tuesday, May 09, 2017 07:30 - CONCLUSION: Chest tube in subcutaneous tissues on the left without pneumothorax. This can be removed. Minimal interval improvement with less parenchymal changes. Ricardo Middleton MD FACR Chest X-Ray 05/08/17 1000 Signed Impressions: Service Date/Time: May 09:48 - CONCLUSION: 1. No recurrent pneumothorax. 2. Endotracheal tube is 1 cm above the norma. This could be pulled back 2 cm for a more optimal position. 3. Stable diffuse consolidation of the right lung and to a much lesser extent left perihilar region consistent with pneumonia and/or asymmetric pulmonary vascular congestion. 4. Degenerative changes and scoliosis of the thoracic spine. Enzo Farooq MD Gall Bladder Ultrasound 05/08/17 0000 Signed Impressions: Service Date/Time: May 08:23 - CONCLUSION: Focally unremarkable appearance of the gallbladder Obdulio Chun MD Procedures * 05/08/17 -left-sided chest tube/pigtail * 04/30/17 -endotracheal intubation * 04/21/17 -Left hip reduction and intramedullary nail fixation . Assessment and Plan Disease Oriented Problem List: (1) Acute respiratory failure (2) Acute CVA (cerebrovascular accident) (3) Pneumonia (4) Atrial fibrillation with RVR (5) Hypertension (6) Hip fracture Symptom Scale: (1) Pain 0-10 Scale: Unable to quantify Comment: Secondary to recent surgical intervention (2) Debility 0-10 Scale: Unable to quantify Comment: Progressive. (3) Shortness of breath 0-10 Scale: Unable to quantify Comment: Increased oxygen requirement. Currently on nonrebreather mask at 15 L. Pertinent Non-Medical Issues Psychosocial: Patient is originally from [facility]. Residing in [place] up until 2013 she moved to [place] to live with only daughter Trice. Patient is a , in 2006. Spiritual: No religion affiliation. Legal: No advance directives completed. Ethical issues impacting care: Patient unable to participating in medical decision-making secondary to clinical condition. Patient's daughter acting as healthcare proxy decision maker. . Important Contacts Daughter Norma Salvador . . Prognosis Mrs. Hein needs a 76-year-old female with a past medical history of hypertension, diabetes mellitus and prior CVA. Presented with left hip fracture , underwent ORIF. Clinical course complicated by large left MCA infarct with edema. Overall prognosis is poor for a meaningful neurological recovery or long -term survival given acute stroke, chronic ongoing comorbidities and advanced age. Patient appears hospice appropriate should family elects comfort-directed care. . Code Status: Full Code Plan * CODE STATUS: FULL CODE. * HEALTHCARE DECISION-MAKING: Patient unable to participate in medical decision- making secondary to clinical condition, minimally responsive post CVA. No advance directives completed, patient is . As per [place] statute, healthcare proxy decision-making falls to patient's only daughter Trice Salvador. * GOALS OF CARE: 05/09/17 -daughter electing to continue aggressive management to include full code. Attempts at contacting patient's daughter today, left message in voicemail. Patient's daughter has previously declined palliative care follow up. Will continue to follow-up peripherally. * SYMPTOMS: = Shortness of breath, multifactorial. Secondary to altered mental status/CVA, pneumonia, lethargy. Intubated and placed on mechanical ventilation. = Pain, secondary to recent surgical intervention. Morphine IV available as needed. = Debility, progressive. Likely to continue to worsen given recent acute stroke. * Case has been discussed with Dr. Carney. * Palliative care contact information has been provided to patient's daughter. * Palliative care will continue to follow-up for further clarifications of goals of care as patient's clinical condition continues to evolve. . Time Spent Total Floor Time (mins): 23 (Total time to include review medical records, physical exam, attempts at contacting patient's daughter Norma, case discussion with Dr. Carney, medical team.) >50% Counseling/Coord of Care: Yes Attestation To help prompt me to consider important information that might be impacting today's encounter and assessment, information from prior notes written by myself or my colleagues may have been "brought forward" into today's note. My signature on this note, however, is an attestation that I personally performed the exam, history, and/or decision-making noted today, and, unless otherwise indicated, the interactions with patient, family, and staff as well as the review of records all occurred today. I also attest that the listed assessment and stated plan reflect my best clinical judgment today based on the combination of historical information, prior notes, and today's exam/ interactions. When time spent is documented, it refers only to time spent today by the signer, or if indicated, combined time spent today by collaborating physician/nurse practitioner. Ashly Steven May 09, 2017 13:52
--- NOTE | 2017-05-09 14:51 | HHI.CCPN ---
Subjective Remarks/Hospital Course 04/24: 76-year-old female with a medical history significant for prior stroke, diabetes mellitus who was admitted with DKA and a hip fracture for which she underwent ORIF on 04/21. Patient developed altered mental status and was last noted to be okay around 5:30 AM. Subsequently there was a change in her mental status and she was noted to not be moving her right side for which stroke alert was called. Head CT showed large left MCA territory ischemic infarct with edema. Patient was transferred to the ICU by family medicine service in the critical care consult was requested. I evaluated the patient following arrival to the ICU. At that time she was laying in bed with her eyes open however not following commands and had a dense right hemiplegia. Patient was also evaluated by Dr. Malave from neurology. I further discussed current event with patient's daughter following her arrival to the ICU. Per the daughter patient has been living with her since her stroke in 2014 and does ambulate however has been having problems with memory and incontinence as well as gait difficulties. She does not feel patient would want intubation or tracheostomy or PEG tube. 04/25: Patient remains encephalopathic, awake though not following commands consistently. Dense right hemiplegia persists. Appears to be awake enough to protect airway currently. Patient's daughter rescinded DNR and made a full code last evening. 04/26: Remains encephalopathic, not following commands. On Dobbhoff for tube feeds at 30 cc per hour. Had urinary retention and drained 2 L of urine after placing Leavitt catheter today. CT head done this morning with large left MCA territory infarct with left to right midline shift and significant cerebral edema. Hyperglycemia noted. Patient given mannitol earlier for increasing cerebral edema. 04/27: Remains encephalopathic, not following commands. On Dobbhoff tube feeds at 30 cc per hour. When into A. fib with RVR last night which responded with Lopressor 5 mg IV 1 dose. 04/28: Remains encephalopathic, arousable, not following commands. Moves left upper extremity spontaneously. Tolerating Dobbhoff tube feeds. Remains on nasal cannula. 04/29: Encephalopathic, eyes be arousable, moves left upper extremity spontaneously and occasionally opens eyes. Dense right hemiplegia and aphasia persists. On nasal cannula. Dobbhoff tube feeds being advanced. Patient was transfused 1 unit PRBCs yesterday. Urine culture with yeast from yesterday for which fluconazole being started. Had brief run of A. fib with RVR which improved with Lopressor IV, currently in sinus rhythm. 04/30: Worsening hypoxemic respiratory failure, currently on partial nonrebreather. Remains lethargic. WBC count increased from 14.6 today 20.7. Chest x-ray shows bilateral worsening infiltrates and small pleural effusions. Sodium 154, weight up by 8 KG. Albumin 1 mg Bumex 1. Also one dose of albumin. Remains in sinus tachycardia. Tmax 101.3 05/01: Patient was intubated yesterday for lack of airway protection, and severe hypoxemic respiratory failure from aspiration pneumonia involving multiple lobes. Patient is on the vent lethargic, no spontaneous eye opening. Chest x- ray remains unchanged. Remains intermittently febrile Tmax 101.3. WBC count improving 05/02: Remains critically ill with no improvement in mental status. Spiking fever of 101.7. Blood culture and sputum culture with staph aureus sputum also growing GNR, WBC count 22,000 now indicating worsening sepsis. Daughter still requesting aggressive care. Palliative care is following 05/03: S/P large area dominant hemisphere CVA. No neurological improvement. Now with pneumonia (infiltrate, fever, leukocytosis) and appropriate abx coverage. She will have a hard time surviving the hip fx, CVA, and pneumonia. Palliative Care needs to be a mainstay of our plan. 05/04: No improvement in neuro status. Sputum C&S allows us to narrow abx coverage to levaquin alone. Lungs remain quite congested. Enteral nutrition tolerated. 05/05: No improvement in neuro status. Moves left arm spontaneously. Flaccid right side. Unresponsive. Persistent mild hypoglycemia - will cut Levemir 50%. Abdomen more distended, check KUB. 05/06: CT head with massive left MCA infarction and > 1 cm shift in right handed woman. She opens eyes, does not track. 05/07: Patient open eyes. Attempts to respond. Croatian speaking. Tolerating tube feeds. Positive bowel movement. Volume overloaded. Subjective 05/08: Tmax 99.4. Potassium being replaced. Ultrasound gallbladder currently pending. Transaminases are trending downward. Gently diurese. 05/09: Alk phos decreasing. Remains with good urine output. Neurological status not improving. Objective Vital Signs Date Time Temp Pulse Resp B/P (MAP) Pulse Ox O2 Delivery O2 Flow Rate FiO2 05/09/17 14:00 87 05/09/17 12:00 45 05/09/17 12:00 98.1 16 133/60 (84) 93 05/09/17 07:00 Mechanical Ventilator Intake and Output 05/09/17 05/09/17 05/10/17 08:00 16:00 00:00 Intake Total 792 ml Output Total 495 ml Balance 297 ml Result Diagram: 05/09/17 0420 05/09/17 1404 Imaging Last Impressions Chest X-Ray 05/07/17 0400 Signed Impressions: Service Date/Time: Sunday, May 07, 2017 04:38 - CONCLUSION: 1. Stable Low-lying ETT with tip approximately 1 cm above the valreie. 2. Mild interval progression of bilateral airspace consolidation exaggerated by patient rotation. 3. Increased small left pleural effusion. Alejo De La Vega MD Abdomen/Pelvis CT 05/07/17 0000 Signed Impressions: Service Date/Time: Sunday, May 07, 2017 13:23 - CONCLUSION: 1. Large left pneumothorax. 2. Bilateral lower lobe consolidation and bilateral moderate size pleural effusions. 3. Significant soft tissue thickening of the right lateral chest wall and left gluteus muscle. 4. Mild ascites. The findings were called to Dr. Carney. Deangelo Zamora MD Head CT 05/06/17 0000 Signed Impressions: Service Date/Time: Saturday, May 06, 2017 04:18 - CONCLUSION: 1. Evolving large left-sided MCA territory infarct with minimally improved [id number] subfalcine shift. 2. No intercurrent hemorrhage or other acute abnormality. Alejo De La Vega MD Abdomen X-Ray 05/06/17 0000 Signed Impressions: Service Date/Time: Saturday, May 06, 2017 17:42 - CONCLUSION: Dobbhoff feeding tube tip near the gastroduodenal junction. Obdulio Simms MD Hip and Pelvis X-Ray 05/05/17 0000 Signed Impressions: Service Date/Time: Friday, May 05, 2017 10:59 - CONCLUSION: Left proximal femur trochanteric/subtrochanteric fracture lucency visualized. Postoperative changes. Choco Mustafa MD Chest CT 04/30/17 0000 Signed Impressions: Service Date/Time: Sunday, April 30, 2017 09:20 - CONCLUSION: 1. Bilateral pulmonary infiltrates more pronounced within the lower lobes with tiny bilateral pleural effusions. Material seen filling the lower lobe bronchi bilaterally either related to purulent material or perhaps mucus plugging. Deangelo Wren Jr., MD Carotid Artery Ultrasound 04/24/17 0000 Signed Impressions: Service Date/Time: April 09:45 - CONCLUSION: 1. No hemodynamically significant carotid artery stenosis. Arnie Middleton MD Hip X-Ray 04/21/17 0000 Signed Impressions: Service Date/Time: Friday, April 21, 2017 11:36 - CONCLUSION: Fluoroscopic images during placement of intramedullary siomara left femur. Benja Ramsey MD Objective Remarks Gen: 76-year-old female, critically ill currently orotracheally intubated HEENT: Pallor present. Moderate dark ET tube secretions Neck: No JVD, orally intubated. Chest/pulmonary: Diffuse rhonchorous breath sounds bilaterally anterior- posterior. Diminished in bases left greater than right. Chest tube #10 Kuwaiti left-sided -40 cm H2O 225 cc yellow Cardiovascular: RRR. S1, S2 no S4 without murmur GI/abdomen: Distended. Nontender. Hypoactive bowel sounds are present. Extremities: Warm bilaterally, anasarca 2+ upper and lower extremity edema. Incision sites over left hip, thigh ORIF site clean dry and intact. No fluctuation or induration Neuro: Intubated on no sedation. Spontaneous eye opening, stares to left, does not track. Dense right hemiplegia noted. Localizes with left upper extremity, Withdraws LLE. No change. Pupils 2 mm, react. Date of Insertion: May 02, 2017 A/P Assessment and Plan Neuro/Psych: Left MCA CVA - 12 mm of [id number] subfalcine herniation - right-sided hemiplegia Acute encephalopathy History CVA Follow neuro status closely. Continue Aspirin 325 mg by mouth daily Patient was not a candidate for thrombolysis per discussion with neurology and radiology. Repeat head CT 05/05 showed slight improvement in the midline shift and mass effect Neurosurgery consulted 04/30- Dr. López, recommended conservative management Neurology following - Dr. Malave On morphine 1-2 every 3 hours when necessary pain Cardiovascular: Hypertension IV fluids currently on hold due to edema As needed Antihypertensives to keep systolic blood pressure less than to 180 mmHg Echocardiogram 04/24 - EF 50 to 55%. Mild concentric LVH. Pulmonary: Acute hypoxic respiratory failure - aspiration possible HCAP Large left pneumothorax status post #10 Kuwaiti chest tube 05/07 PRVC 16/450/09/08/49 Ventilator bundle Ipratropium/albuterol aerosols every 6 hours with albuterol aerosols every 2 hours. Dyspnea Intubated on 04/30/17 for worsening hypoxemic respiratory failure, aspiration pneumonia Chest x-ray shows 05/08 revealed increasing infiltrate/small pleural effusion left side. Right-sided chest tube in place. Small subcutaneous emphysema. CT of the chest 04/30/17 showed severe bibasilar consolidation, and evidence of aspiration GI/liver: Elevated transaminases Hypoalbuminemia Moderate to severe protein calorie malnutrition Dobbhoff for tube feedings and medications. Continue tube feeding with Glucerna 1.5 goal 45 cc an hour On hold 05/08 due to possible cholecystostomy tube placement depending on ultrasound gallbladder Lansoprazole 30 mg daily for GI regimen Docusate sodium 100 twice a day, Senokot 8.6 twice a day, polyethylene glycol 17 grams twice a day and lactulose 30 cc 4 times a day Evaluate CT abdomen/pelvis 05/07 - mild ascites. Large left hemothorax. Right greater than left pleural effusion. Avoid hepatotoxic drugs Endocrine: Diabetes mellitus Detemir 15 units subcutaneous every 12 hours. Currently hold while nothing by mouth Sliding scale insulin Accu-Cheks to maintain euglycemia/low regimen Holding glimepiride 4 mill grams by mouth daily /Renal/FEN: Hypopotassemia Strict intake output, monitor and replete electrolytes, follow BUN/creatinine. Leavitt catheter placed for urinary retention on 04/26. Recheck potassium 18 hours. 80 mEq potassium chloride by tube, 30 mEq IV 1 now Heme: Chronic Rivaroxaban use Leukocytosis Normocytic anemia Thrombocytosis Follow CBC and coags. On subcutaneous enoxaparin Hemoglobin currently stable. No indications for transfusion of blood proximally at this time ID: MSSA bacteremia Serratia/staph aureus pneumonia C glabrata UTI Currently on IV levofloxacin, by mouth metronidazole and micafungin Pertinent cultures Urine culture 04/26/17 sofie glabrata Blood culture 04/29/17 1 out of 4 bottles staph aureus Sputum culture 04/30/17 staph aureus and Serratia. Blood cultures 2, sputum 1 and urine 05/08 pending MSK: Left Intertroch Hip Fx s/p IMN - POD 14 Vitamin D deficiency WBAT DC ginger today redress with Xeroform/Primapore Prophylaxis: SCDs. Enoxaparin 40 mg sq daily-cleared by Dr. Ananda SANDS - lansoprazole Overall impression: Devastating CVA. Recovery will be difficult. Charles Pedraza MD May 09, 2017 14:51
[2017-05-09] MEDS: DEXTROSE 50% IN WATER 50 ML SYRINGE IV PRN (15:40)
--- NOTE | 2017-05-09 16:03 | HHI.NSPN ---
(Rene Reed) History Chief Complaint: Unable to obtain due to the patient's clinical condition. 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 05/03/2017: Remains intubated. Minimal eye opening to sternal rub. Grasps left hand good strength to command. 05/06: Patient continues to be intubated and off any sedation. She had a repeat CT brain this morning which demonstrated an evolving large left-sided MCA territory infarct with minimal improvement in the [id number] subfalcine shift. 05/07/17: Remains intubated. Awake and relatively alert. Minimally disconjugate left gaze and response to voice. Moves left upper and lower extremity well to command. CPAP trials 05/08: Patient still is intubated and is on pressure controlled ventilation. She is not on any sedation and arouses to noxious stimulation. The patient was noted to have a left-sided pneumothorax on her chest x-ray yesterday and the Field Hockey Coach placed a tube thoracostomy. 05/09: The patient is awake and fairly alert when seen. She does interact readily. The left-sided tube thoracostomy remains in place. (Rene Reed) System Review Comments Unable to obtain due to the patient's clinical condition. (Rene Reed) Exam Results 05/07/17 05/07/17 05/08/17 05/08/17 05/09/17 05/09/17 05:59 17:59 05:59 17:59 05:59 17:59 Intake Total 2060 ml 2073 ml 608 ml 798 ml 400 ml 792 ml Output Total 350 ml 325 ml 1280 ml 1450 ml 1730 ml 495 ml Balance 1710 ml 1748 ml -672 ml -652 ml -1330 ml 297 ml IV Total 2060 ml 1516 ml 550 ml 314 ml Tube Feeding 437 ml 488 ml 128 ml 150 ml 358 ml Tube Irrigant 120 ml Other 120 ml 120 ml 250 ml 120 ml Output Urine Total 350 ml 325 ml 1100 ml 1400 ml 1700 ml 475 ml Chest Tube Drainage Total 180 ml 50 ml 30 ml 20 ml # Bowel Movements 2 1 2 2 2 4 Vital Signs Date Time Temp Pulse Resp B/P (MAP) Pulse Ox O2 Delivery O2 Flow Rate FiO2 05/09/17 15:08 96 55 05/09/17 14:00 87 05/09/17 12:00 89 05/09/17 12:00 45 05/09/17 12:00 98.1 99 16 133/60 (84) 93 05/09/17 11:26 100 45 05/09/17 10:00 94 05/09/17 08:00 45 05/09/17 08:00 98.5 87 24 148/66 (93) 95 05/09/17 08:00 87 05/09/17 07:57 94 55 05/09/17 07:00 91 Mechanical Ventilator 45 05/09/17 06:00 89 05/09/17 04:06 92 45 05/09/17 04:00 98 05/09/17 04:00 98.4 98 14 130/60 (83) 90 05/09/17 04:00 45 05/09/17 02:00 85 05/09/17 01:13 96 45 05/09/17 00:00 45 05/09/17 00:00 90 05/09/17 00:00 98.3 90 14 133/64 (87) 96 05/08/17 22:15 96 45 05/08/17 22:00 93 05/08/17 20:25 99 50 05/08/17 20:00 98.4 91 17 134/64 (87) 100 05/08/17 20:00 50 05/08/17 20:00 91 05/08/17 19:00 98 Mechanical Ventilator 50 05/08/17 18:00 104 05/08/17 16:00 98.3 97 18 108/57 (74) 94 05/08/17 16:00 97 05/08/17 16:00 50 05/08/17 15:38 92 40 05/08/17 14:00 91 05/08/17 13:35 97 50 05/08/17 12:00 99.0 96 14 124/82 (96) 96 05/08/17 12:00 96 05/08/17 12:00 50 05/08/17 10:00 95 05/08/17 09:59 94 50 05/08/17 08:00 99.2 89 14 134/63 (86) 94 05/08/17 08:00 89 05/08/17 08:00 50 05/08/17 07:59 94 50 05/08/17 07:00 94 Mechanical Ventilator 50 05/08/17 06:00 98 05/08/17 04:17 94 50 05/08/17 04:00 50 05/08/17 04:00 99.2 94 22 109/62 (78) 95 05/08/17 04:00 94 05/08/17 03:00 94 50 05/08/17 02:00 104 05/08/17 01:52 97 40 05/08/17 00:00 50 05/08/17 00:00 98.7 110 17 115/78 (90) 94 05/08/17 00:00 110 05/07/17 22:56 97 50 05/07/17 22:00 114 05/07/17 20:02 96 50 05/07/17 20:00 92 05/07/17 20:00 98.5 92 17 145/79 (101) 96 05/07/17 20:00 50 05/07/17 19:00 97 Mechanical Ventilator 50 05/07/17 18:00 95 05/07/17 16:00 97.6 85 15 148/65 (92) 100 05/07/17 16:00 50 05/07/17 16:00 85 05/07/17 15:49 98 60 05/07/17 14:00 90 05/07/17 13:05 100 100 05/07/17 12:00 88 05/07/17 12:00 50 05/07/17 12:00 98.4 88 15 117/65 (82) 94 05/07/17 11:31 92 60 05/07/17 10:00 97 05/07/17 08:10 100 60 05/07/17 08:00 60 05/07/17 08:00 93 05/07/17 08:00 98.3 93 17 155/76 (102) 100 05/07/17 07:00 60 Mechanical Ventilator 92 05/07/17 06:00 96 05/07/17 04:03 96 70 05/07/17 04:00 98.3 106 15 126/81 (96) 97 05/07/17 04:00 70 05/07/17 04:00 106 05/07/17 02:00 105 05/07/17 01:26 94 70 05/07/17 00:00 80 05/07/17 00:00 104 05/07/17 00:00 97.6 104 24 111/76 (88) 94 05/06/17 22:00 98 05/06/17 20:01 95 70 05/06/17 20:00 98.6 90 14 129/65 (86) 95 05/06/17 20:00 90 05/06/17 20:00 70 05/06/17 19:00 94 Mechanical Ventilator 70 05/06/17 18:00 89 05/06/17 16:00 88 05/06/17 16:00 98.7 88 23 119/61 (80) 94 05/06/17 16:00 96 50 05/06/17 16:00 50 (Rene Reed) Physical Examination GENERAL: Patient is awake & fairly alert. She readily interacts. Intubated but w /o any sedation. No apparent distress. SKIN: Cool, with generalised dependent edema, w/o any evident rashes, ulcerations or lesions. HEENT: Normocephalic, atraumatic. PERRL. Orally intubated. Right nare feeding tube. NECK: No JVD, trachea midline. CARDIOVASCULAR: S1S2 w/RRR w/o M/G/R, radial & pedal pulses 1+ bilaterally, cap refill < 2 sec, generalised dependent edema. Monitor is sinus rhythm w/o any evident ectopy. RESPIRATORY: Coarse bilaterally, equal excursion, nonlaboured, intubated and on pressure controlled ventilation. Left-sided tube thoracotomy to negative pressure. GASTROINTESTINAL: Abdomen slightly distended but soft, bowel sounds not appreciated. Feeding tube clamped. MUSCULOSKELETAL: No evident deformity or clubbing. NEUROLOGICAL: Intubated w/o any sedation. Awake & fairly alert. GCS 11T (E4 V1T M6) PERRL, minimally disconjugate left gaze to voice, appeared to focus but not track. Weak left hand grasp to command, slight movement of left toes to command, no response to command or local noxious stimulation to RUE or RLE. Persistent right hemiplegia. (Rene Reed) Lab, Micro, Other Results Recent Impressions Chest X-Ray 05/09/17 0000 Signed Impressions: Service Date/Time: Tuesday, May 09, 2017 07:30 - CONCLUSION: Chest tube in subcutaneous tissues on the left without pneumothorax. This can be removed. Minimal interval improvement with less parenchymal changes. Ricardo Middleton MD FACR Chest X-Ray 05/08/17 1000 Signed Impressions: Service Date/Time: May 09:48 - CONCLUSION: 1. No recurrent pneumothorax. 2. Endotracheal tube is 1 cm above the valerie. This could be pulled back 2 cm for a more optimal position. 3. Stable diffuse consolidation of the right lung and to a much lesser extent left perihilar region consistent with pneumonia and/or asymmetric pulmonary vascular congestion. 4. Degenerative changes and scoliosis of the thoracic spine. Enzo Farooq MD Gall Bladder Ultrasound 05/08/17 0000 Signed Impressions: Service Date/Time: May 08:23 - CONCLUSION: Focally unremarkable appearance of the gallbladder Obdulio Chun MD Chest X-Ray 05/07/17 0400 Signed Impressions: Service Date/Time: Sunday, May 07, 2017 04:38 - CONCLUSION: 1. Stable Low-lying ETT with tip approximately 1 cm above the valerie. 2. Mild interval progression of bilateral airspace consolidation exaggerated by patient rotation. 3. Increased small left pleural effusion. Alejo De La Vega MD Chest X-Ray 05/07/17 0000 Signed Impressions: Service Date/Time: Sunday, May 07, 2017 15:51 - CONCLUSION: 1. Resolution of the previously noted left pneumothorax status post placement of small chest tube. Some subcutaneous emphysema is noted within the left chest wall. 2. Stable scattered pulmonary infiltrates bilaterally. 3. Cardiomegaly. 4. Indwelling tubes are stable. Enzo Farooq MD Abdomen/Pelvis CT 05/07/17 0000 Signed Impressions: Service Date/Time: Sunday, May 07, 2017 13:23 - CONCLUSION: 1. Large left pneumothorax. 2. Bilateral lower lobe consolidation and bilateral moderate size pleural effusions. 3. Significant soft tissue thickening of the right lateral chest wall and left gluteus muscle. 4. Mild ascites. The findings were called to Dr. Carney. Deangelo Zamora MD Laboratory Tests Test 05/07/17 04:21 05/07/17 06:05 05/07/17 21:00 05/08/17 04:20 Blood Urea Nitrogen 36 MG/DL Creatinine 0.37 MG/DL Random Glucose 239 MG/DL Total Protein 5.1 GM/DL Albumin 1.5 GM/DL Calcium Level 7.7 MG/DL Alkaline Phosphatase 1931 U/L Aspartate Amino Transf (AST/SGOT) 217 U/L Alanine Aminotransferase (ALT/SGPT) 55 U/L Gamma Glutamyl Transpeptidase 787 U/L Total Bilirubin 1.2 MG/DL Direct Bilirubin 0.8 MG/DL Sodium Level 145 MEQ/L Potassium Level 3.9 MEQ/L Chloride Level 109 MEQ/L Carbon Dioxide Level 27.8 MEQ/L Anion Gap 8 MEQ/L Estimat Glomerular Filtration Rate 171 ML/MIN Indirect Bilirubin 0.4 MG/DL Blood Gas Puncture Site RT RADIAL Blood Gas Patient Temperature 98.6 Blood Gas HCO3 27 mmol/L Blood Gas Base Excess 3.1 mmol/L Blood Gas Oxygen Saturation 95 % Arterial Blood pH 7.48 Arterial Blood Partial Pressure CO2 36 mmHg Arterial Blood Partial Pressure O2 94 mmHg Arterial Blood Oxygen Content 13.4 Vol % Arterial Blood Carboxyhemoglobin 1.6 % Arterial Blood Methemoglobin 0.7 % Blood Gas Hemoglobin 9.9 G/DL Oxygen Delivery Device VENTILATOR Blood Gas Ventilator Setting SEE COMMENTS Blood Gas Inspired Oxygen 70 % Lactate Dehydrogenase 532 U/L Total Creatine Kinase 82 U/L Amylase Level 21 U/L Lipase 48 U/L Urine Color YELLOW Urine Turbidity CLEAR Urine pH 5.0 Urine Specific [place] 1.018 Urine Protein NEG mg/dL Urine Glucose (UA) NEG mg/dL Urine Ketones NEG mg/dL Urine Occult Blood SMALL Urine Nitrite NEG Urine Bilirubin NEG Urine Urobilinogen LESS THAN 2.0 MG/DL Urine Leukocyte Esterase SMALL Urine RBC 7 /hpf Urine WBC 3 /hpf Urine Squamous Epithelial Cells 2 /hpf Urine Transitional Epithelial Cells <1 /hpf Urine Bacteria RARE /hpf Urine Hyaline Casts 1 /lpf Urine Mucus FEW /lpf Microscopic Urinalysis Comment CATH-CULTURE IND Test 05/08/17 04:44 05/08/17 21:10 05/09/17 04:20 05/09/17 14:04 White Blood Count 14.5 TH/MM3 14.7 TH/MM3 13.5 TH/MM3 Red Blood Count 2.38 MIL/MM3 2.43 MIL/MM3 2.49 MIL/MM3 Hemoglobin 7.5 GM/DL 7.7 GM/DL 7.6 GM/DL Hematocrit 23.1 % 23.8 % 24.4 % Mean Corpuscular Volume 96.7 FL 98.2 FL 98.0 FL Mean Corpuscular Hemoglobin 31.6 PG 31.8 PG 30.8 PG Mean Corpuscular Hemoglobin Concent 32.7 % 32.4 % 31.4 % Red Cell Distribution Width 14.4 % 14.9 % 15.2 % Platelet Count 472 TH/MM3 482 TH/MM3 526 TH/MM3 Mean Platelet Volume 9.3 FL 9.4 FL 8.7 FL Neutrophils (%) (Auto) 89.1 % 92.1 % 89.1 % Lymphocytes (%) (Auto) 8.3 % 5.2 % 7.8 % Monocytes (%) (Auto) 2.2 % 2.5 % 2.3 % Eosinophils (%) (Auto) 0.3 % 0.1 % 0.3 % Basophils (%) (Auto) 0.1 % 0.1 % 0.5 % Neutrophils # (Auto) 12.9 TH/MM3 13.6 TH/MM3 12.1 TH/MM3 Lymphocytes # (Auto) 1.2 TH/MM3 0.8 TH/MM3 1.0 TH/MM3 Monocytes # (Auto) 0.3 TH/MM3 0.4 TH/MM3 0.3 TH/MM3 Eosinophils # (Auto) 0.0 TH/MM3 0.0 TH/MM3 0.0 TH/MM3 Basophils # (Auto) 0.0 TH/MM3 0.0 TH/MM3 0.1 TH/MM3 CBC Comment AUTO DIFF DIFF FINAL AUTO DIFF Differential Total Cells Counted 100 100 Neutrophils % (Manual) 86 % 75 % Band Neutrophils % 6 % 17 % Lymphocytes % 6 % 3 % Neutrophils # (Manual) 13.6 TH/MM3 12.7 TH/MM3 Metamyelocytes 2 % 1 % Nucleated Red Blood Cells 2 /100 WBC 2 /100 WBC Differential Comment FINAL DIFF MANUAL FINAL DIFF MANUAL Platelet Estimate HIGH HIGH Platelet Morphology Comment NORMAL ENLARGED Polychromasia 2.4 % 4.3 % Stomatocytes 1+ Blood Urea Nitrogen 29 MG/DL 27 MG/DL Creatinine 0.44 MG/DL 0.51 MG/DL Random Glucose 104 MG/DL 149 MG/DL Total Protein 5.4 GM/DL 5.4 GM/DL Albumin 1.4 GM/DL 1.3 GM/DL Calcium Level 7.8 MG/DL 7.7 MG/DL Phosphorus Level 2.2 MG/DL 2.2 MG/DL Magnesium Level 2.4 MG/DL 2.3 MG/DL Alkaline Phosphatase 1542 U/L 1217 U/L Aspartate Amino Transf (AST/SGOT) 45 U/L 42 U/L Alanine Aminotransferase (ALT/SGPT) 39 U/L 32 U/L Total Bilirubin 0.5 MG/DL 0.4 MG/DL Sodium Level 146 MEQ/L 146 MEQ/L Potassium Level 2.5 MEQ/L 2.6 MEQ/L 3.4 MEQ/L 3.0 MEQ/L Chloride Level 107 MEQ/L 106 MEQ/L Carbon Dioxide Level 31.8 MEQ/L 31.9 MEQ/L Anion Gap 7 MEQ/L 8 MEQ/L Estimat Glomerular Filtration Rate 140 ML/MIN 118 ML/MIN Hepatitis A IgM Antibody NEGATIVE Hepatitis B Surface Antigen NEGATIVE Hepatitis B Core IgM Antibody NEGATIVE Hepatitis C Antibody REACTIVE Procalcitonin 0.61 ng/mL Monocytes % 3 % Myelocytes 1 % Toxic Granulation 1+ Dohle Bodies PRESENT (Rene Reed) Medical Decision Making Impression and Plan Impression: 1. Large left MCA CVA 2. Persistent right hemiplegia 3. Aspiration pneumonia 4. Hypoxic respiratory failure Sodium 146 this morning. Patient alert and follows commands but still w/persistent right hemiplegia. Plan: Primary management per [employer] Hockey Coach. Frequent neuro checks. Continue ventilatory support. Continue keep sodium 148-154 range. Okay for Lovenox from neurosurgical standpoint. (Rene Reed) Attending Statement I have personally seen and examined the patient on the date of this note. Pertinent documentation and study results have been reviewed by the undersigned. I have personally developed the treatment plan and performed medical decision making. Agree with findings, exam, and treatment plan as noted above. Patient is relatively awake and alert today. Arouses easily to voice Left gaze preference Follows commands with good strength left upper and lower extremity Persistent right hemiparesis Mental status continues to gradually improve Stable following left MCA CVA. No neurosurgical intervention planned at this point. We will follow intermittently. (Parker López MD) Rene Reed May 09, 2017 16:03 Parker López MD May 09, 2017 20:29
--- NOTE | 2017-05-09 17:01 | HHI.FPPN ---
Subjective Remarks Ms. Hein had no acute events overnight. She is more somnolent today and is not opening her eyes or following simple commands as she was yesterday. Relates that Noticing reported one incidence of right hand with jawline to painful stimuli however not sure who witnessed this event. Right forearm is still swollen but weeping fluid. Bilateral feet are swollen. Dr. Aldana and I had a long discussion with her daughter, Trice, who still believes her mother can recover from this devastating CVA. Daughter is sick today and will not be coming in to see her mother. Daughter is still convinced her mother is a fighter and may be able to overcome her current set of conditions. States her mother became diabetic in her 50s and did not come to the [place] until 2 years ago from [place]. States that her mother does not speak [place] and only understands a few words. When asked whether her mother might have had a blood transfusion, Trice denies is and does not know how her mother might have been exposed to Hep C. States she would like to talk to us when she visits her mother again. (Chuy Camacho MD R1) Objective Vitals Vital Signs Date Time Temp Pulse Resp B/P (MAP) Pulse Ox O2 Delivery O2 Flow Rate FiO2 05/09/17 16:00 98.5 111 16 134/68 (90) 93 05/09/17 16:00 55 05/09/17 16:00 111 05/09/17 15:08 96 55 05/09/17 14:00 87 05/09/17 12:00 89 05/09/17 12:00 45 05/09/17 12:00 98.1 99 16 133/60 (84) 93 05/09/17 11:26 100 45 05/09/17 10:00 94 05/09/17 08:00 45 05/09/17 08:00 98.5 87 24 148/66 (93) 95 05/09/17 08:00 87 05/09/17 07:57 94 55 05/09/17 07:00 91 Mechanical Ventilator 45 05/09/17 06:00 89 05/09/17 04:06 92 45 05/09/17 04:00 98 05/09/17 04:00 98.4 98 14 130/60 (83) 90 05/09/17 04:00 45 05/09/17 02:00 85 05/09/17 01:13 96 45 05/09/17 00:00 45 05/09/17 00:00 90 05/09/17 00:00 98.3 90 14 133/64 (87) 96 05/08/17 22:15 96 45 05/08/17 22:00 93 05/08/17 20:25 99 50 05/08/17 20:00 98.4 91 17 134/64 (87) 100 05/08/17 20:00 50 05/08/17 20:00 91 05/08/17 19:00 98 Mechanical Ventilator 50 05/08/17 18:00 104 I/O 05/08/17 05/08/17 05/08/17 05/09/17 05/09/17 05/09/17 07:00 15:00 23:00 07:00 15:00 23:00 Intake Total 248 ml 550 ml 400 ml 792 ml Output Total 1450 ml 1730 ml 495 ml Balance -1202 ml 550 ml -1330 ml 297 ml IV Total 550 ml 314 ml Tube Feeding 128 ml 150 ml 358 ml Tube Irrigant 120 ml Other 250 ml 120 ml Output Urine Total 1400 ml 1700 ml 475 ml Chest Tube Drainage Total 50 ml 30 ml 20 ml # Bowel Movements 2 2 4 (Chuy Camacho MD R1) Result Diagram: 05/09/17 0420 05/09/17 1404 Imaging Last Impressions Chest X-Ray 05/09/17 0000 Signed Impressions: Service Date/Time: Tuesday, May 09, 2017 07:30 - CONCLUSION: Chest tube in subcutaneous tissues on the left without pneumothorax. This can be removed. Minimal interval improvement with less parenchymal changes. Ricardo Middleton MD FACR Gall Bladder Ultrasound 05/08/17 0000 Signed Impressions: Service Date/Time: May 08:23 - CONCLUSION: Focally unremarkable appearance of the gallbladder Obdulio Chun MD Abdomen/Pelvis CT 05/07/17 0000 Signed Impressions: Service Date/Time: Sunday, May 07, 2017 13:23 - CONCLUSION: 1. Large left pneumothorax. 2. Bilateral lower lobe consolidation and bilateral moderate size pleural effusions. 3. Significant soft tissue thickening of the right lateral chest wall and left gluteus muscle. 4. Mild ascites. The findings were called to Dr. Carney. Deangelo Zamora MD Head CT 05/06/17 0000 Signed Impressions: Service Date/Time: Saturday, May 06, 2017 04:18 - CONCLUSION: 1. Evolving large left-sided MCA territory infarct with minimally improved uokl-cx-wgnaj subfalcine shift. 2. No intercurrent hemorrhage or other acute abnormality. Alejo De La Vega MD Abdomen X-Ray 05/06/17 0000 Signed Impressions: Service Date/Time: Saturday, May 06, 2017 17:42 - CONCLUSION: Dobbhoff feeding tube tip near the gastroduodenal junction. Obduilo Simms MD Hip and Pelvis X-Ray 05/05/17 0000 Signed Impressions: Service Date/Time: Friday, May 05, 2017 10:59 - CONCLUSION: Left proximal femur trochanteric/subtrochanteric fracture lucency visualized. Postoperative changes. Choco Mustafa MD Chest CT 04/30/17 0000 Signed Impressions: Service Date/Time: Sunday, April 30, 2017 09:20 - CONCLUSION: 1. Bilateral pulmonary infiltrates more pronounced within the lower lobes with tiny bilateral pleural effusions. Material seen filling the lower lobe bronchi bilaterally either related to purulent material or perhaps mucus plugging. Deangelo Wren Jr., MD Carotid Artery Ultrasound 04/24/17 0000 Signed Impressions: Service Date/Time: April 09:45 - CONCLUSION: 1. No hemodynamically significant carotid artery stenosis. Arnie Middleton MD Hip X-Ray 04/21/17 0000 Signed Impressions: Service Date/Time: Friday, April 21, 2017 11:36 - CONCLUSION: Fluoroscopic images during placement of intramedullary siomara left femur. Benja Ramsey MD Objective Remarks CONSTITUTIONAL/GEN: Nonverbal, lying in bed. Intubated on ventilator, receiving tube feeds. Somnolent. HEAD: Normocephalic. Atraumatic. LUNGS: Coarse breath sounds bilaterally CARDIOVASCULAR: Regular rate vs tachycardic with regular rhythm. Upper and lower extremity edema. GI/ABD: distended and tense without masses, without organomegaly. Firmness to palpation seemed worse in L upper and lower quadrants NEURO: Intubated; not opening eyes to stimuli. Patient does not respond to commands today. : Moser not inspected; 2175ml from moser bag today MUSC: Bandages on lateral left hip and thigh are clean dry and intact. SCDs on bilateral lower extremities. Pedal pulses weak. SKIN: No obvious rashes on exposed skin Procedures ORIF 04/21/17 Intubation 04/30/17 (Chuy Camacho MD R1) Urinary Catheter: Yes Moser insert reason: Prolonged Immobilization Date of Insertion: May 02, 2017 (Chuy Camacho MD R1) A/P Assessment and Plan 76 y/o female with HTN, DM, CVA admitted for DKA and hip fracture. Now with massive left MCA stroke, right hemiplegia and midline shift resolving. Neuro and information systems technician consulted. Working with palliative care and family for goals of care. 05/07 CT abdomen/pelvis shows large pneumothorax on left side decompressed with chest tube. -Overall poor prognosis, pursuing goals of care discussion with daughter (HCPOA) , but at this time daughter wishes continued intervention -05/09 - extensive discussion with daughter today indicates no willingness to pursue comfort measures only. Daughter continues to ask for aggressive management of her mother's condition; will continue to engage in this discussion Discharge Planning Pending stroke progression and discussion for goals of care (Chuy Camacho MD R1) Attending Attestation Patient seen and examined. Case reviewed and discussed Agree with plan of care as discussed with me and documented in the resident note. (Angélica Malik MD) Problem List: (1) Acute CVA (cerebrovascular accident) ICD Codes: I63.9 - Cerebral infarction, unspecified Status: Acute Plan: Patient found minimally responsive with neurological deficits around 0820 04/24. Stat CT of head was ordered, which showed large left MCA infarct. Diffuse edema throughout the left MCA distribution, suggest completed infarct. This was discussed and was not a candidate for intracranial intervention. CT (04/30): Reduction in midline shift to 11mm. Unchanged large left MCA infarction. CT head (05/06) shows: Evolving large left-sided MCA territory infarct with minimally improved kfrf-al-ygnvb subfalcine shift. No intercurrent hemorrhage or other acute abnormality. Echocardiogram- The left ventricular systolic function is low normal with an estimated ejection fraction in the range of 50-55%. Mild concentric left ventricular hypertrophy. Normal left ventricular size. Xopye-jy-atnl mitral valve regurgitation. Carotid Artery US- No hemodynamically significant carotid stenosis -Consulted information systems technician, appreciate recs -Intubated/sedated; does not recommend tracheostomy -IV hydration, watch for hypotension. -Keep systolic to less than 220 -Lactated Ringer's reduced to 75 ml/hr -Poor prognosis -Neurosurgery consulted -Recommended conservative management -Keep Na in 145-154 range -Tube feeds: Glucerna 1.5 mLs for diet via Dobbhoff tube -Senior Contract Specialist consult for management and recs -Consult palliative care-appreciate recs -Case discussed with daughter in-person about goals of care, limited treatment options, and poor prognosis. -Daughter continues to want aggressive care. Wishes to continue aggressive medical treatment despite prognosis -Neurology consulted-appreciate recs -Rectal ASA -Lovenox 40mg daily (2) Sepsis ICD Codes: A41.9 - Sepsis, unspecified organism Status: Acute Plan: Impression: Pt meets SIRS criteria with tachycardia, leukocytosis Persistent leukocytosis but downtrending: WBC 05/05 20.6 K, 05/06 22.1 K,05/08 14.5 K Cultures: 05/07 Blood cultures and sputum cultures negative to date 04/30 Sputum culture with staph, Serratia 04/29 blood culture with staph -See antibiotics as below -Culture results as below -Monitor vitals (3) HCAP (healthcare-associated pneumonia) ICD Codes: J18.9 - Pneumonia, unspecified organism Status: Acute Plan: Suspect possible HCAP. Persistent leukocytosis. Possible aspiration Chest CT (04/30): Bilateral pulmonary infiltrates more pronounced within lower lobes with b/l pleural effusions. Material in lower lobe bronchi b/l, purulent or mucus plugging 04/30 Sputum culture showing staph aureus and Serratia Marcescens Legionella and strep pneumo urine tests negative CXR 05/02: Increased airspace opacity bilaterally. The pattern may represent pulmonary edema. There is likely a left pleural effusion. CXR 05/08: Stable diffuse consolidation of right warm to much lesser extent left perihilar region consistent with pneumonia or asymmetric pulmonary vascular congestion CXR 05/09: no pneumothorax, but small subcutaneous emphysema in left chest, patchy opacity in right lower lung consistent with pneumonia or pulmonary vascular congestion. Continue antibiotic therapy -Levaquin IV 750 mg (05/04- ) HCAP -Flagyl 500mg q8H (04/29 - ) for aspiration -Repeat blood cultures (05/07) pending , with 1/ positive; possible contaminant -Duonebs treatments q6h Antibiotic History -Discontinued Cefepime 2g IV daily (04/30 - d/c 05/04 ) -Discontinued Vancomycin IV (04/30 - d/c 05/04 ) (4) Yeast UTI ICD Codes: B37.49 - Other urogenital candidiasis Status: Resolved Plan: UA showed glucose, large number of leukocytes esterase, innumerable WBCs , rare bacteria, and few yeast Urine culture shows Lea Glabrata; however, high GGT and Alk Phos require reducing hepatotoxic drugs -D/C Micafungin 100mg IV daily as it is hepatically metabolized -Urine cx 05/09 pending (5) Abdominal distension ICD Codes: R14.0 - Abdominal distension (gaseous) Status: Acute Plan: Impression: Abdominal distension evident on exam 05/05 with serial KUBs neg for etiology. In association with transaminase elevation and Alk P >1k and GGT elevation. s/p large BM 05/07 per nursing staff 05/06 - CT abdomen/pelvis- large left pneumothorax, bilateral lower lobe consolidation and bilateral moderate-sized pleural effusions, significant soft tissue thickening of right lateral chest wall and left gluteus. Mild ascites 05/09 - abdominal distension unchanged; however, LFTs resolving following chest tube -Continue to monitor at this time -Continue to follow LFTs (6) Type 2 diabetes mellitus ICD Codes: E11.9 - Type 2 diabetes mellitus without complications Status: Chronic Plan: Admitted for DKA which has now resolved. Hemoglobin A1C is 12.9. Diabetes Type I is uncontrolled. -Continue Levemir 10 units BID due to hypoglycemia at higher dose -Medium dose insulin sliding scale with goal blood glucose between 140 and 180 -Glucerna for NG tube feedings -D/C Regular accuchecks (7) Atrial fibrillation ICD Codes: I48.91 - Unspecified atrial fibrillation Status: Acute Plan: Hx of intermittent Afib. Resolved with administration of Lopressor. -Continue to monitor -Lopressor PRN (8) Hip fracture ICD Codes: S72.009A - Fracture of unspecified part of neck of unspecified femur , initial encounter for closed fracture Status: Acute Plan: S/P left hip reduction and intramedullary nail fixation on 04-21-17 -Consult orthopedics-appreciate recs * WBAT * Daily dressing changes -Calcium/Vitamin D -Fluids as above -Tylenol, morphine PRN pain (9) Hypertension ICD Codes: I10 - Essential (primary) hypertension Status: Acute Plan: IV hydration. BPs wnl overnight -Continue fluids as above -Antihypertensives to keep SBP<180 -Lasix or Bumex for diuresis as required (10) Fluid overload ICD Codes: E87.70 - Fluid overload, unspecified Status: Acute Plan: Hob Machine Operator noted fluid overload -Bumex IV for diuresis -Metolazone 2.5mg (11) Pneumothorax ICD Codes: J93.9 - Pneumothorax, unspecified Status: Resolved Plan: Impression: Noticed on 05/06 CT abdomen/pelvis- large left pneumothorax, bilateral lower lobe consolidation and bilateral moderate-sized pleural effusions. S/P chest tube placement 05/07 231 ml output overnight -Continue to monitor output at this time (12) On mechanically assisted ventilation ICD Codes: Z99.11 - Dependence on respirator [ventilator] status Plan: Impression: On mechanical ventilation; TV 450ml, 55% FiO2, PIP 34, PEEP 5 -Continue; weaning trials as tolerated (13) Elevated LFTs ICD Codes: R79.89 - Other specified abnormal findings of blood chemistry Plan: Impression: Recent LFT elevations over the past week with alkaline phosphatase gradually rising from 351-1931 and AST rising from 50s to 217. Liver/biliary etiology expected as GGT 787. Gallbladder ultrasound obtained by information systems technician 05/08; focally unremarkable in appearance of gallbladder -Monitor at this time (14) Fluids, Electrolytes, and Nutrition Status: Acute Plan: Fluids: IVF as above Electrolyte: on electrolyte protocol Nutrition: Glucerna tube feeds DVT ppx: SCDs/lovenox 40 mg daily GI ppx: protonix Colace, fleet enema mineral oil (Chuy Camacho MD R1) Problem Qualifiers (1) Sepsis: Qualified Codes: A41.9 - Sepsis, unspecified organism (2) Type 2 diabetes mellitus: Qualified Codes: E11.9 - Type 2 diabetes mellitus without complications (3) Atrial fibrillation: Qualified Codes: I48.0 - Paroxysmal atrial fibrillation (4) Hip fracture: (5) Hypertension: Qualified Codes: I10 - Essential (primary) hypertension (6) Fluid overload: Qualified Codes: E87.79 - Other fluid overload (7) Pneumothorax: Blanke,Chuy H MD R1 May 09, 2017 17:01 Angélica Malik MD May 13, 2017 10:02
[2017-05-10] VITALS (15 sets, daily range): BP systolic 116–129; BP diastolic 61–79; PULSE 82–98; RESP 14–24; TEMP 96.9–98.4; O2SAT 93–100
[2017-05-10] MEDS: RESP: ALBUTEROL 2.5 MG/3 ML NEB (PRN) NEB (00:35)
[2017-05-10] MEDS: RESP: ALBUTEROL 2.5 MG/IPRATROPIUM 0.5 MG NEB (SCH) NEB ×4 (03:36→20:02)
[2017-05-10 05:06] LABS: ALBUMIN 1.3 GM/DL (3.4-5.0); BICARBONATE 31.5 MEQ/L (21.0-32.0); CALCIUM 7.7 MG/DL (8.5-10.1); CREATININE 0.4 MG/DL (0.50-1.00); DIRECT BILIRUBIN ADULT 0.2 MG/DL (0.0-0.2); INDIRECT BILIRUBIN 0.1 MG/DL (0.0-0.8); TOTAL BILIRUBIN ADULT 0.3 MG/DL (0.2-1.0); TOTAL PROTEIN 5.5 GM/DL (6.4-8.2)
[2017-05-10] MEDS: metroNIDAZOLE 500 MG TAB DOBHOFF SCH ×3 (06:06→20:50)
[2017-05-10] MEDS: INSULIN ASPART SUPPLEMENTAL SCALE SQ SCH ×4 (07:00→20:50)
[2017-05-10 08:22] LABS: AUTOMATED NEUTROPHIL # 8.6 TH/MM3 (1.8-7.7); BASOPHIL % 0.2 % (0.0-2.0); EOSINOPHIL # 0.1 TH/MM3 (0-0.4); EOSINOPHIL % 1.1 % (0.0-4.0); HEMATOCRIT 22.7 % (35.0-46.0); HEMOGLOBIN 7.4 GM/DL (11.6-15.3); LYMPH % 7.9 % (9.0-44.0); LYMPHOCYTE # 0.8 TH/MM3 (1.0-4.8); MEAN CELL VOLUME 98.3 FL (80.0-100.0); MEAN CORPUSCULAR HEMOGLOBIN 32.1 PG (27.0-34.0); MEAN CORPUSCULAR HGB CONC 32.6 % (32.0-36.0); MEAN PLATELET VOLUME 8.5 FL (7.0-11.0); MONO % 3.4 % (0.0-8.0); MONOCYTE # 0.3 TH/MM3 (0-0.9); NEUT % 87.4 % (16.0-70.0); PLATELET COUNT 417 TH/MM3 (150-450); RED BLOOD COUNT 2.31 MIL/MM3 (4.00-5.30); RED CELL DISTRIBUTION WIDTH 16.1 % (11.6-17.2); WHITE BLOOD COUNT 9.8 TH/MM3 (4.0-11.0)
[2017-05-10] MEDS: SODIUM CHLORIDE 0.9% FLUSH 5 ML FLUSH IV FLUSH SCH ×2 (09:00→20:49)
[2017-05-10] MEDS: LACTULOSE SYRUP 20 GM/30 ML CUP PO SCH ×4 (09:00→20:10)
[2017-05-10 09:19] LABS: BANDS 7 % (0-6); LYMPHOCYTES 9 % (9-44); MONOCYTES 4 % (0-8); MYELOCYTES 2 % (0-0); NEUTROPHIL # MANUAL DIFF 8.4 TH/MM3 (1.8-7.7); POLYS (SEG NEUTROPHILS) 77 % (16-70)
[2017-05-10 09:23] LABS: POLYCHROMASIA 3.3 % (0.0-1.9)
[2017-05-10] MEDS: LEVOFLOXACIN 750 MG PREMIX INJ 150 ML IV SCH (09:49)
[2017-05-10] MEDS: CALCIUM/VITAMIN D 250 MG/125 U TAB PO SCH ×3 (09:49→18:00)
[2017-05-10] MEDS: ASPIRIN 325 MG TAB DOBHOFF SCH (09:49)
[2017-05-10] MEDS: CHOLECALCIFEROL (VIT D3) 5000 UNIT CAP PO SCH (09:49)
[2017-05-10] MEDS: DOCUSATE SODIUM 100 MG/10 ML UDC PO SCH ×2 (09:49→20:10)
[2017-05-10] MEDS: ENOXAPARIN SODIUM 40 MG/0.4 ML SYRINGE SQ SCH (09:49)
[2017-05-10] MEDS: POLYETHYLENE GLYCOL 17 GM PKG OG-TUBE SCH ×2 (09:50→20:10)
[2017-05-10] MEDS: LANSOPRAZOLE SOLUTAB 30 MG TAB NG SCH (09:50)
[2017-05-10] MEDS: SENNOSIDES SYRUP 8.8 MG/5 ML CUP OG-TUBE SCH ×2 (09:50→20:10)
[2017-05-10] MEDS: FUROSEMIDE 20 MG/2 ML VIAL IV PUSH SCH ×2 (09:52→18:00)
[2017-05-10] MEDS: INSULIN DETEMIR 100 UNITS/ML VIAL SQ SCH ×2 (09:53→20:49)
--- NOTE | 2017-05-10 10:40 | HHI.CCPN ---
Subjective Remarks/Hospital Course 04/24: 76-year-old female with a medical history significant for prior stroke, diabetes mellitus who was admitted with DKA and a hip fracture for which she underwent ORIF on 04/21. Patient developed altered mental status and was last noted to be okay around 5:30 AM. Subsequently there was a change in her mental status and she was noted to not be moving her right side for which stroke alert was called. Head CT showed large left MCA territory ischemic infarct with edema. Patient was transferred to the ICU by family medicine service in the critical care consult was requested. I evaluated the patient following arrival to the ICU. At that time she was laying in bed with her eyes open however not following commands and had a dense right hemiplegia. Patient was also evaluated by Dr. Malave from neurology. I further discussed current event with patient's daughter following her arrival to the ICU. Per the daughter patient has been living with her since her stroke in 2014 and does ambulate however has been having problems with memory and incontinence as well as gait difficulties. She does not feel patient would want intubation or tracheostomy or PEG tube. 04/25: Patient remains encephalopathic, awake though not following commands consistently. Dense right hemiplegia persists. Appears to be awake enough to protect airway currently. Patient's daughter rescinded DNR and made a full code last evening. 04/26: Remains encephalopathic, not following commands. On Dobbhoff for tube feeds at 30 cc per hour. Had urinary retention and drained 2 L of urine after placing Leavitt catheter today. CT head done this morning with large left MCA territory infarct with left to right midline shift and significant cerebral edema. Hyperglycemia noted. Patient given mannitol earlier for increasing cerebral edema. 04/27: Remains encephalopathic, not following commands. On Dobbhoff tube feeds at 30 cc per hour. When into A. fib with RVR last night which responded with Lopressor 5 mg IV 1 dose. 04/28: Remains encephalopathic, arousable, not following commands. Moves left upper extremity spontaneously. Tolerating Dobbhoff tube feeds. Remains on nasal cannula. 04/29: Encephalopathic, eyes be arousable, moves left upper extremity spontaneously and occasionally opens eyes. Dense right hemiplegia and aphasia persists. On nasal cannula. Dobbhoff tube feeds being advanced. Patient was transfused 1 unit PRBCs yesterday. Urine culture with yeast from yesterday for which fluconazole being started. Had brief run of A. fib with RVR which improved with Lopressor IV, currently in sinus rhythm. 04/30: Worsening hypoxemic respiratory failure, currently on partial nonrebreather. Remains lethargic. WBC count increased from 14.6 today 20.7. Chest x-ray shows bilateral worsening infiltrates and small pleural effusions. Sodium 154, weight up by 8 KG. Albumin 1 mg Bumex 1. Also one dose of albumin. Remains in sinus tachycardia. Tmax 101.3 05/01: Patient was intubated yesterday for lack of airway protection, and severe hypoxemic respiratory failure from aspiration pneumonia involving multiple lobes. Patient is on the vent lethargic, no spontaneous eye opening. Chest x- ray remains unchanged. Remains intermittently febrile Tmax 101.3. WBC count improving 05/02: Remains critically ill with no improvement in mental status. Spiking fever of 101.7. Blood culture and sputum culture with staph aureus sputum also growing GNR, WBC count 22,000 now indicating worsening sepsis. Daughter still requesting aggressive care. Palliative care is following 05/03: S/P large area dominant hemisphere CVA. No neurological improvement. Now with pneumonia (infiltrate, fever, leukocytosis) and appropriate abx coverage. She will have a hard time surviving the hip fx, CVA, and pneumonia. Palliative Care needs to be a mainstay of our plan. 05/04: No improvement in neuro status. Sputum C&S allows us to narrow abx coverage to levaquin alone. Lungs remain quite congested. Enteral nutrition tolerated. 05/05: No improvement in neuro status. Moves left arm spontaneously. Flaccid right side. Unresponsive. Persistent mild hypoglycemia - will cut Levemir 50%. Abdomen more distended, check KUB. 05/06: CT head with massive left MCA infarction and > 1 cm shift in right handed woman. She opens eyes, does not track. 05/07: Patient open eyes. Attempts to respond. Luxembourger speaking. Tolerating tube feeds. Positive bowel movement. Volume overloaded. Subjective 05/08: Tmax 99.4. Potassium being replaced. Ultrasound gallbladder currently pending. Transaminases are trending downward. Gently diurese. 05/09: Alk phos decreasing. Remains with good urine output. Neurological status not improving. 05/10: Fixed neuro deficit unchanged. Profound CVA. Objective Vital Signs Date Time Temp Pulse Resp B/P (MAP) Pulse Ox O2 Delivery O2 Flow Rate FiO2 05/10/17 08:51 55 05/10/17 08:24 95 05/10/17 08:00 98.4 93 24 118/67 (84) 05/10/17 07:00 Mechanical Ventilator Intake and Output 05/10/17 05/10/17 05/11/17 08:00 16:00 00:00 Intake Total 748 ml Output Total 275 ml Balance 473 ml Result Diagram: 05/10/17 0803 05/10/17 0426 Other Results Microbiology Date/Time Source Procedure Growth Status 05/08/17 04:20 Urine Catheterized Urine Urine Culture - Final NO GROWTH IN 48 HOURS. Complete Imaging Last Impressions Chest X-Ray 05/07/17 0400 Signed Impressions: Service Date/Time: Sunday, May 07, 2017 04:38 - CONCLUSION: 1. Stable Low-lying ETT with tip approximately 1 cm above the valerie. 2. Mild interval progression of bilateral airspace consolidation exaggerated by patient rotation. 3. Increased small left pleural effusion. Alejo De La Vega MD Abdomen/Pelvis CT 05/07/17 0000 Signed Impressions: Service Date/Time: Sunday, May 07, 2017 13:23 - CONCLUSION: 1. Large left pneumothorax. 2. Bilateral lower lobe consolidation and bilateral moderate size pleural effusions. 3. Significant soft tissue thickening of the right lateral chest wall and left gluteus muscle. 4. Mild ascites. The findings were called to Dr. Carney. Deangelo Zamora MD Head CT 05/06/17 0000 Signed Impressions: Service Date/Time: Saturday, May 06, 2017 04:18 - CONCLUSION: 1. Evolving large left-sided MCA territory infarct with minimally improved [id number] subfalcine shift. 2. No intercurrent hemorrhage or other acute abnormality. Alejo De La Vega MD Abdomen X-Ray 05/06/17 0000 Signed Impressions: Service Date/Time: Saturday, May 06, 2017 17:42 - CONCLUSION: Dobbhoff feeding tube tip near the gastroduodenal junction. Obdulio Simms MD Hip and Pelvis X-Ray 05/05/17 0000 Signed Impressions: Service Date/Time: Friday, May 05, 2017 10:59 - CONCLUSION: Left proximal femur trochanteric/subtrochanteric fracture lucency visualized. Postoperative changes. Choco Mustafa MD Chest CT 04/30/17 0000 Signed Impressions: Service Date/Time: Sunday, April 30, 2017 09:20 - CONCLUSION: 1. Bilateral pulmonary infiltrates more pronounced within the lower lobes with tiny bilateral pleural effusions. Material seen filling the lower lobe bronchi bilaterally either related to purulent material or perhaps mucus plugging. Deangelo Wren Jr., MD Carotid Artery Ultrasound 04/24/17 0000 Signed Impressions: Service Date/Time: April 09:45 - CONCLUSION: 1. No hemodynamically significant carotid artery stenosis. Arnie Middleton MD Hip X-Ray 04/21/17 0000 Signed Impressions: Service Date/Time: Friday, April 21, 2017 11:36 - CONCLUSION: Fluoroscopic images during placement of intramedullary siomara left femur. Benja Ramsey MD Objective Remarks Gen: 76-year-old female, critically ill currently orotracheally intubated HEENT: Pallor present. Moderate dark ET tube secretions Neck: No JVD, orally intubated. Chest/pulmonary: Diffuse rhonchorous breath sounds bilaterally anterior- posterior. Diminished in bases left greater than right. Chest tube #10 Algerian left-sided -40 cm H2O 225 cc yellow Cardiovascular: RRR. S1, S2 no S4 without murmur GI/abdomen: Distended. Nontender. Hypoactive bowel sounds are present. Extremities: Warm bilaterally, anasarca 2+ upper and lower extremity edema. Incision sites over left hip, thigh ORIF site clean dry and intact. No fluctuation or induration Neuro: Intubated on no sedation. Spontaneous eye opening, stares to left, does not track. Dense right hemiplegia noted. Localizes with left upper extremity, Withdraws LLE. No change. Pupils 2 mm, react. Date of Insertion: May 02, 2017 A/P Assessment and Plan Neuro/Psych: Left MCA CVA - 12 mm of [id number] subfalcine herniation - right-sided hemiplegia Acute encephalopathy History CVA Follow neuro status closely. Continue Aspirin 325 mg by mouth daily Patient was not a candidate for thrombolysis per discussion with neurology and radiology. Repeat head CT 05/05 showed slight improvement in the midline shift and mass effect Neurosurgery consulted 04/30- Dr. López, recommended conservative management Neurology following - Dr. Malave On morphine 1-2 every 3 hours when necessary pain Cardiovascular: Hypertension IV fluids currently on hold due to edema As needed Antihypertensives to keep systolic blood pressure less than to 180 mmHg Echocardiogram 04/24 - EF 50 to 55%. Mild concentric LVH. Pulmonary: Acute hypoxic respiratory failure - aspiration possible HCAP Large left pneumothorax status post #10 Algerian chest tube 05/07 PRVC 16/450/09/08/49 Ventilator bundle Ipratropium/albuterol aerosols every 6 hours with albuterol aerosols every 2 hours. Dyspnea Intubated on 04/30/17 for worsening hypoxemic respiratory failure, aspiration pneumonia Chest x-ray shows 05/08 revealed increasing infiltrate/small pleural effusion left side. Right-sided chest tube in place. Small subcutaneous emphysema. CT of the chest 04/30/17 showed severe bibasilar consolidation, and evidence of aspiration GI/liver: Elevated transaminases Hypoalbuminemia Moderate to severe protein calorie malnutrition Dobbhoff for tube feedings and medications. Continue tube feeding with Glucerna 1.5 goal 45 cc an hour On hold 05/08 due to possible cholecystostomy tube placement depending on ultrasound gallbladder Lansoprazole 30 mg daily for GI regimen Docusate sodium 100 twice a day, Senokot 8.6 twice a day, polyethylene glycol 17 grams twice a day and lactulose 30 cc 4 times a day Evaluate CT abdomen/pelvis 05/07 - mild ascites. Large left hemothorax. Right greater than left pleural effusion. Avoid hepatotoxic drugs LFTs improving Endocrine: Diabetes mellitus Detemir 15 units subcutaneous every 12 hours. Currently hold while nothing by mouth Sliding scale insulin Accu-Cheks to maintain euglycemia/low regimen Holding glimepiride 4 mill grams by mouth daily /Renal/FEN: Hypopotassemia Strict intake output, monitor and replete electrolytes, follow BUN/creatinine. Leavitt catheter placed for urinary retention on 04/26. Heme: Chronic Rivaroxaban use Leukocytosis Normocytic anemia Thrombocytosis Follow CBC and coags. On subcutaneous enoxaparin Hemoglobin currently stable. No indications for transfusion of blood proximally at this time ID: MSSA bacteremia Serratia/staph aureus pneumonia C glabrata UTI Currently on IV levofloxacin, by mouth metronidazole and micafungin Pertinent cultures Urine culture 8/26/17 sofie glabrata Blood culture 04/29/17 1 out of 4 bottles staph aureus Sputum culture 04/30/17 staph aureus and Serratia. Blood cultures 2, sputum 1 and urine 05/08 pending MSK: Left Intertroch Hip Fx s/p IMN - POD 14 Vitamin D deficiency WBAT DC ginger today redress with Xeroform/Primapore Prophylaxis: SCDs. Enoxaparin 40 mg sq daily-cleared by Dr. Malave GI - lansoprazole Overall impression: Devastating CVA. Recovery will be difficult. No improvement. Charles Pedraza MD May 10, 2017 10:40
--- NOTE | 2017-05-10 10:55 | HHI.NSPN ---
(Rene Reed) History Chief Complaint: Unable to obtain due to the patient's clinical condition. 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 05/03/2017: Remains intubated. Minimal eye opening to sternal rub. Grasps left hand good strength to command. 05/06: Patient continues to be intubated and off any sedation. She had a repeat CT brain this morning which demonstrated an evolving large left-sided MCA territory infarct with minimal improvement in the [id number] subfalcine shift. 05/07/17: Remains intubated. Awake and relatively alert. Minimally disconjugate left gaze and response to voice. Moves left upper and lower extremity well to command. CPAP trials 05/08: Patient still is intubated and is on pressure controlled ventilation. She is not on any sedation and arouses to noxious stimulation. The patient was noted to have a left-sided pneumothorax on her chest x-ray yesterday and the [employer] Television Announcer placed a tube thoracostomy. 05/09: The patient is awake and fairly alert when seen. She does interact readily. The left-sided tube thoracostomy remains in place. 05/10: The patient remains intubated and mechanically ventilated. Initially the patient had her eyes closed but did follow commands. A few minutes later she was noted to have her eyes open without any stimulation. (Rene Reed) System Review Comments Unable to obtain due to the patient's clinical condition. (Rene Reed) Exam Results 05/08/17 05/08/17 05/09/17 05/09/17 05/10/17 05/10/17 05:59 17:59 05:59 17:59 05:59 17:59 Intake Total 608 ml 798 ml 400 ml 892 ml 847 ml 748 ml Output Total 1280 ml 1450 ml 1730 ml 495 ml 300 ml 275 ml Balance -672 ml -652 ml -1330 ml 397 ml 547 ml 473 ml IV Total 550 ml 414 ml 250 ml 246 ml Tube Feeding 488 ml 128 ml 150 ml 358 ml 497 ml 502 ml Tube Irrigant 120 ml Other 120 ml 250 ml 120 ml 100 ml Output Urine Total 1100 ml 1400 ml 1700 ml 475 ml 300 ml 275 ml Chest Tube Drainage Total 180 ml 50 ml 30 ml 20 ml 0 ml 0 ml # Bowel Movements 2 2 2 4 3 Vital Signs Date Time Temp Pulse Resp B/P (MAP) Pulse Ox O2 Delivery O2 Flow Rate FiO2 05/10/17 08:51 55 05/10/17 08:50 55 05/10/17 08:24 95 55 05/10/17 08:00 55 05/10/17 08:00 98.4 93 24 118/67 (84) 93 05/10/17 07:00 93 Mechanical Ventilator 45 05/10/17 06:00 94 05/10/17 04:09 99 55 05/10/17 04:00 97.9 94 16 124/63 (83) 95 05/10/17 04:00 94 05/10/17 04:00 55 05/10/17 02:00 92 05/10/17 00:10 93 55 05/10/17 00:00 55 05/10/17 00:00 96.9 90 14 121/68 (85) 95 05/09/17 22:40 97 55 05/09/17 22:00 88 05/09/17 20:24 98 55 05/09/17 20:00 55 05/09/17 20:00 100 05/09/17 20:00 97.0 100 14 131/73 (92) 95 05/09/17 19:00 98 Mechanical Ventilator 45 05/09/17 18:00 86 05/09/17 16:00 98.5 111 16 134/68 (90) 93 05/09/17 16:00 55 05/09/17 16:00 111 05/09/17 15:08 96 55 05/09/17 14:00 87 05/09/17 12:00 89 05/09/17 12:00 45 05/09/17 12:00 98.1 99 16 133/60 (84) 93 05/09/17 11:26 100 45 05/09/17 10:00 94 05/09/17 08:00 45 05/09/17 08:00 98.5 87 24 148/66 (93) 95 05/09/17 08:00 87 05/09/17 07:57 94 55 05/09/17 07:00 91 Mechanical Ventilator 45 05/09/17 06:00 89 05/09/17 04:06 92 45 05/09/17 04:00 98 05/09/17 04:00 98.4 98 14 130/60 (83) 90 05/09/17 04:00 45 05/09/17 02:00 85 05/09/17 01:13 96 45 05/09/17 00:00 45 05/09/17 00:00 90 05/09/17 00:00 98.3 90 14 133/64 (87) 96 05/08/17 22:15 96 45 05/08/17 22:00 93 05/08/17 20:25 99 50 05/08/17 20:00 98.4 91 17 134/64 (87) 100 05/08/17 20:00 50 05/08/17 20:00 91 05/08/17 19:00 98 Mechanical Ventilator 50 05/08/17 18:00 104 05/08/17 16:00 98.3 97 18 108/57 (74) 94 05/08/17 16:00 97 05/08/17 16:00 50 05/08/17 15:38 92 40 05/08/17 14:00 91 05/08/17 13:35 97 50 05/08/17 12:00 99.0 96 14 124/82 (96) 96 05/08/17 12:00 96 05/08/17 12:00 50 05/08/17 10:00 95 05/08/17 09:59 94 50 05/08/17 08:00 99.2 89 14 134/63 (86) 94 05/08/17 08:00 89 05/08/17 08:00 50 05/08/17 07:59 94 50 05/08/17 07:00 94 Mechanical Ventilator 50 05/08/17 06:00 98 05/08/17 04:17 94 50 05/08/17 04:00 50 05/08/17 04:00 99.2 94 22 109/62 (78) 95 05/08/17 04:00 94 05/08/17 03:00 94 50 05/08/17 02:00 104 05/08/17 01:52 97 40 05/08/17 00:00 50 05/08/17 00:00 98.7 110 17 115/78 (90) 94 05/08/17 00:00 110 05/07/17 22:56 97 50 05/07/17 22:00 114 05/07/17 20:02 96 50 05/07/17 20:00 92 05/07/17 20:00 98.5 92 17 145/79 (101) 96 05/07/17 20:00 50 05/07/17 19:00 97 Mechanical Ventilator 50 05/07/17 18:00 95 05/07/17 16:00 97.6 85 15 148/65 (92) 100 05/07/17 16:00 50 05/07/17 16:00 85 05/07/17 15:49 98 60 05/07/17 14:00 90 05/07/17 13:05 100 100 05/07/17 12:00 88 05/07/17 12:00 50 05/07/17 12:00 98.4 88 15 117/65 (82) 94 05/07/17 11:31 92 60 (Rene Reed) Physical Examination GENERAL: Intubated w/o any sedation. No apparent distress. SKIN: Cool, with generalised dependent edema, w/o any evident rashes, ulcerations or lesions. HEENT: Normocephalic, atraumatic. PERRL. Orally intubated. Right nare feeding tube. NECK: No JVD, trachea midline. CARDIOVASCULAR: S1S2 w/RRR w/o M/G/R, radial & pedal pulses 1+ bilaterally, cap refill < 2 sec, generalised dependent edema. Monitor appears to be sinus rhythm but baseline erratic, no ectopy noted. RESPIRATORY: Slightly coarse bilaterally, equal excursion, nonlaboured, intubated and on pressure controlled ventilation. Left-sided tube thoracotomy to negative pressure. GASTROINTESTINAL: Abdomen slightly distended but soft, bowel sounds not appreciated. Feeding tube w/enteral feeds. MUSCULOSKELETAL: No evident deformity or clubbing. NEUROLOGICAL: Intubated w/o any sedation. Patient initially with eyes closed but did follow commands. She opened her eyes briefly to noxious stimulation. A few minutes later the patient had her eyes open w/o any stimulation. GCS 11T (E4 V1T M6) PERRL, minimally disconjugate left gaze to voice, appeared to focus but not track. Weak left hand grasp to command, slight movement of left toes to command, no response to command or local noxious stimulation to RUE or RLE, but she did open her eyes to noxious stimulation to the RUE. Persistent right hemiplegia. (Rene Reed) Lab, Micro, Other Results Recent Impressions Chest X-Ray 05/09/17 0000 Signed Impressions: Service Date/Time: Tuesday, May 09, 2017 07:30 - CONCLUSION: Chest tube in subcutaneous tissues on the left without pneumothorax. This can be removed. Minimal interval improvement with less parenchymal changes. Ricardo Middleton MD FACR Chest X-Ray 05/08/17 1000 Signed Impressions: Service Date/Time: May 09:48 - CONCLUSION: 1. No recurrent pneumothorax. 2. Endotracheal tube is 1 cm above the valerie. This could be pulled back 2 cm for a more optimal position. 3. Stable diffuse consolidation of the right lung and to a much lesser extent left perihilar region consistent with pneumonia and/or asymmetric pulmonary vascular congestion. 4. Degenerative changes and scoliosis of the thoracic spine. Enzo Farooq MD Gall Bladder Ultrasound 05/08/17 0000 Signed Impressions: Service Date/Time: May 08:23 - CONCLUSION: Focally unremarkable appearance of the gallbladder Obdulio Chun MD Laboratory Tests Test 05/07/17 21:00 05/08/17 04:20 05/08/17 04:44 05/08/17 21:10 Lactate Dehydrogenase 532 U/L Total Creatine Kinase 82 U/L Amylase Level 21 U/L Lipase 48 U/L Urine Color YELLOW Urine Turbidity CLEAR Urine pH 5.0 Urine Specific Reubens 1.018 Urine Protein NEG mg/dL Urine Glucose (UA) NEG mg/dL Urine Ketones NEG mg/dL Urine Occult Blood SMALL Urine Nitrite NEG Urine Bilirubin NEG Urine Urobilinogen LESS THAN 2.0 MG/DL Urine Leukocyte Esterase SMALL Urine RBC 7 /hpf Urine WBC 3 /hpf Urine Squamous Epithelial Cells 2 /hpf Urine Transitional Epithelial Cells <1 /hpf Urine Bacteria RARE /hpf Urine Hyaline Casts 1 /lpf Urine Mucus FEW /lpf Microscopic Urinalysis Comment CATH-CULTURE IND White Blood Count 14.5 TH/MM3 14.7 TH/MM3 Red Blood Count 2.38 MIL/MM3 2.43 MIL/MM3 Hemoglobin 7.5 GM/DL 7.7 GM/DL Hematocrit 23.1 % 23.8 % Mean Corpuscular Volume 96.7 FL 98.2 FL Mean Corpuscular Hemoglobin 31.6 PG 31.8 PG Mean Corpuscular Hemoglobin Concent 32.7 % 32.4 % Red Cell Distribution Width 14.4 % 14.9 % Platelet Count 472 TH/MM3 482 TH/MM3 Mean Platelet Volume 9.3 FL 9.4 FL Neutrophils (%) (Auto) 89.1 % 92.1 % Lymphocytes (%) (Auto) 8.3 % 5.2 % Monocytes (%) (Auto) 2.2 % 2.5 % Eosinophils (%) (Auto) 0.3 % 0.1 % Basophils (%) (Auto) 0.1 % 0.1 % Neutrophils # (Auto) 12.9 TH/MM3 13.6 TH/MM3 Lymphocytes # (Auto) 1.2 TH/MM3 0.8 TH/MM3 Monocytes # (Auto) 0.3 TH/MM3 0.4 TH/MM3 Eosinophils # (Auto) 0.0 TH/MM3 0.0 TH/MM3 Basophils # (Auto) 0.0 TH/MM3 0.0 TH/MM3 CBC Comment AUTO DIFF DIFF FINAL Differential Total Cells Counted 100 Neutrophils % (Manual) 86 % Band Neutrophils % 6 % Lymphocytes % 6 % Neutrophils # (Manual) 13.6 TH/MM3 Metamyelocytes 2 % Nucleated Red Blood Cells 2 /100 WBC Differential Comment FINAL DIFF MANUAL Platelet Estimate HIGH Platelet Morphology Comment NORMAL Polychromasia 2.4 % Stomatocytes 1+ Blood Urea Nitrogen 29 MG/DL Creatinine 0.44 MG/DL Random Glucose 104 MG/DL Total Protein 5.4 GM/DL Albumin 1.4 GM/DL Calcium Level 7.8 MG/DL Phosphorus Level 2.2 MG/DL Magnesium Level 2.4 MG/DL Alkaline Phosphatase 1542 U/L Aspartate Amino Transf (AST/SGOT) 45 U/L Alanine Aminotransferase (ALT/SGPT) 39 U/L Total Bilirubin 0.5 MG/DL Sodium Level 146 MEQ/L Potassium Level 2.5 MEQ/L 2.6 MEQ/L Chloride Level 107 MEQ/L Carbon Dioxide Level 31.8 MEQ/L Anion Gap 7 MEQ/L Estimat Glomerular Filtration Rate 140 ML/MIN Hepatitis A IgM Antibody NEGATIVE Hepatitis B Surface Antigen NEGATIVE Hepatitis B Core IgM Antibody NEGATIVE Hepatitis C Antibody REACTIVE Procalcitonin 0.61 ng/mL Test 05/09/17 04:20 05/09/17 14:04 05/10/17 04:26 05/10/17 08:03 White Blood Count 13.5 TH/MM3 9.8 TH/MM3 Red Blood Count 2.49 MIL/MM3 2.31 MIL/MM3 Hemoglobin 7.6 GM/DL 7.4 GM/DL Hematocrit 24.4 % 22.7 % Mean Corpuscular Volume 98.0 FL 98.3 FL Mean Corpuscular Hemoglobin 30.8 PG 32.1 PG Mean Corpuscular Hemoglobin Concent 31.4 % 32.6 % Red Cell Distribution Width 15.2 % 16.1 % Platelet Count 526 TH/MM3 417 TH/MM3 Mean Platelet Volume 8.7 FL 8.5 FL Neutrophils (%) (Auto) 89.1 % 87.4 % Lymphocytes (%) (Auto) 7.8 % 7.9 % Monocytes (%) (Auto) 2.3 % 3.4 % Eosinophils (%) (Auto) 0.3 % 1.1 % Basophils (%) (Auto) 0.5 % 0.2 % Neutrophils # (Auto) 12.1 TH/MM3 8.6 TH/MM3 Lymphocytes # (Auto) 1.0 TH/MM3 0.8 TH/MM3 Monocytes # (Auto) 0.3 TH/MM3 0.3 TH/MM3 Eosinophils # (Auto) 0.0 TH/MM3 0.1 TH/MM3 Basophils # (Auto) 0.1 TH/MM3 0.0 TH/MM3 CBC Comment AUTO DIFF AUTO DIFF Differential Total Cells Counted 100 100 Neutrophils % (Manual) 75 % 77 % Band Neutrophils % 17 % 7 % Lymphocytes % 3 % 9 % Monocytes % 3 % 4 % Neutrophils # (Manual) 12.7 TH/MM3 8.4 TH/MM3 Metamyelocytes 1 % Myelocytes 1 % 2 % Nucleated Red Blood Cells 2 /100 WBC Differential Comment FINAL DIFF MANUAL FINAL DIFF MANUAL Toxic Granulation 1+ Dohle Bodies PRESENT Platelet Estimate HIGH NORMAL Platelet Morphology Comment ENLARGED NORMAL Polychromasia 4.3 % 3.3 % Blood Urea Nitrogen 27 MG/DL 27 MG/DL Creatinine 0.51 MG/DL 0.40 MG/DL Random Glucose 149 MG/DL 82 MG/DL 112 MG/DL Total Protein 5.4 GM/DL 5.5 GM/DL Albumin 1.3 GM/DL 1.3 GM/DL Calcium Level 7.7 MG/DL 7.7 MG/DL Phosphorus Level 2.2 MG/DL Magnesium Level 2.3 MG/DL Alkaline Phosphatase 1217 U/L 983 U/L Aspartate Amino Transf (AST/SGOT) 42 U/L 50 U/L Alanine Aminotransferase (ALT/SGPT) 32 U/L 29 U/L Total Bilirubin 0.4 MG/DL 0.3 MG/DL Sodium Level 146 MEQ/L 144 MEQ/L Potassium Level 3.4 MEQ/L 3.0 MEQ/L 4.3 MEQ/L Chloride Level 106 MEQ/L 107 MEQ/L Carbon Dioxide Level 31.9 MEQ/L 31.5 MEQ/L Anion Gap 8 MEQ/L 6 MEQ/L Estimat Glomerular Filtration Rate 118 ML/MIN 156 ML/MIN Direct Bilirubin 0.2 MG/DL Indirect Bilirubin 0.1 MG/DL Eosinophils % 1 % (Rene Reed) Medical Decision Making Impression and Plan Impression: 1. Large left MCA CVA 2. Persistent right hemiplegia 3. Aspiration pneumonia 4. Hypoxic respiratory failure Sodium 144 this morning. Patient initially with eyes open but later had her eyes open w/o stimulation. She is following commands but still w/persistent right hemiplegia. Plan: Primary management per [employer]. Frequent neuro checks. Continue ventilatory support. Continue keep sodium 148-154 range. Okay for Lovenox from neurosurgical standpoint. (Rene Reed) Attending Statement The exam, history, and the medical decision-making described in the above note were completed with the assistance of the mid-level provider. I reviewed and agree with the findings presented. I attest that I had a [id number] encounter with the patient on the same day, and personally performed and documented my assessment and findings in the medical record. On examination today, the patient arouses readily to voice and mild sternal rub. She is quite alert, tracking towards the left and response to voice. Moderate left grasp and left lower extremity movement to command neurologic exam continues to gradually improve. Labs reviewed. Discussed with neurology and I see today. Stable from neurosurgery standpoint. We will follow intermittently during her hospitalization. (Parker López MD) Rene Reed May 10, 2017 10:55 Parker López MD May 10, 2017 15:17
--- NOTE | 2017-05-10 13:19 | HHI.FPPN ---
Subjective Remarks Afebrile and vital signs stable overnight. Patient remains intubated. Patient was on CPAP all day yesterday. However, patient seems tachypneic today, per respiratory therapist. Yesterday they had a nurse who speaks Ukrainian try to communicate with the patient. She did not follow any commands. She spontaneously moves her left side, but not her right. Per nurse report, there is a stage II sacral decubitus ulcer on the patient. She has been having diarrhea. Chest tube has 300 mL of output, only 50 mL since last night. For urine output, she has only had 275 mL in the past 24 hours. She also has a area of purple induration around the left labia majora. (Jose R Bennett MD R2) Objective Vitals Vital Signs Date Time Temp Pulse Resp B/P (MAP) Pulse Ox O2 Delivery O2 Flow Rate FiO2 05/10/17 11:40 99 55 05/10/17 08:51 55 05/10/17 08:50 55 05/10/17 08:24 95 55 05/10/17 08:00 55 05/10/17 08:00 98.4 93 24 118/67 (84) 93 05/10/17 07:00 93 Mechanical Ventilator 45 05/10/17 06:00 94 05/10/17 04:09 99 55 05/10/17 04:00 97.9 94 16 124/63 (83) 95 05/10/17 04:00 94 05/10/17 04:00 55 05/10/17 02:00 92 05/10/17 00:10 93 55 05/10/17 00:00 55 05/10/17 00:00 96.9 90 14 121/68 (85) 95 05/09/17 22:40 97 55 05/09/17 22:00 88 05/09/17 20:24 98 55 05/09/17 20:00 55 05/09/17 20:00 100 05/09/17 20:00 97.0 100 14 131/73 (92) 95 05/09/17 19:00 98 Mechanical Ventilator 45 05/09/17 18:00 86 05/09/17 16:00 98.5 111 16 134/68 (90) 93 05/09/17 16:00 55 05/09/17 16:00 111 9/8/17 15:08 96 55 05/09/17 14:00 87 I/O 05/09/17 05/09/17 05/09/17 05/10/17 05/10/17 05/10/17 07:00 15:00 23:00 07:00 15:00 23:00 Intake Total 792 ml 947 ml 748 ml Output Total 495 ml 300 ml 275 ml Balance 297 ml 647 ml 473 ml IV Total 314 ml 350 ml 246 ml Tube Feeding 358 ml 497 ml 502 ml Other 120 ml 100 ml Output Urine Total 475 ml 300 ml 275 ml Chest Tube Drainage Total 20 ml 0 ml 0 ml # Bowel Movements 4 3 (Jose R Bennett MD R2) Result Diagram: 05/10/17 0803 05/10/17 0426 Imaging Last Impressions Abdomen X-Ray 05/10/17 0000 Signed Impressions: Service Date/Time: Wednesday, May 10, 2017 22:08 - CONCLUSION: Tip of Dobbhoff catheter is in the antrum of the stomach. Sage Adler MD Chest X-Ray 05/09/17 0000 Signed Impressions: Service Date/Time: Tuesday, May 09, 2017 07:30 - CONCLUSION: Chest tube in subcutaneous tissues on the left without pneumothorax. This can be removed. Minimal interval improvement with less parenchymal changes. Ricardo Middleton MD FACR Gall Bladder Ultrasound 05/08/17 0000 Signed Impressions: Service Date/Time: May 08:23 - CONCLUSION: Focally unremarkable appearance of the gallbladder Obdulio Chun MD Abdomen/Pelvis CT 05/07/17 0000 Signed Impressions: Service Date/Time: Sunday, May 07, 2017 13:23 - CONCLUSION: 1. Large left pneumothorax. 2. Bilateral lower lobe consolidation and bilateral moderate size pleural effusions. 3. Significant soft tissue thickening of the right lateral chest wall and left gluteus muscle. 4. Mild ascites. The findings were called to Dr. Carney. Deangelo Zamora MD Head CT 05/06/17 0000 Signed Impressions: Service Date/Time: Saturday, May 06, 2017 04:18 - CONCLUSION: 1. Evolving large left-sided MCA territory infarct with minimally improved [id number]-sh-[id number] subfalcine shift. 2. No intercurrent hemorrhage or other acute abnormality. Alejo De La Vega MD Hip and Pelvis X-Ray 05/05/17 0000 Signed Impressions: Service Date/Time: Friday, May 05, 2017 10:59 - CONCLUSION: Left proximal femur trochanteric/subtrochanteric fracture lucency visualized. Postoperative changes. Choco Mustafa MD Chest CT 04/30/17 0000 Signed Impressions: Service Date/Time: Sunday, April 30, 2017 09:20 - CONCLUSION: 1. Bilateral pulmonary infiltrates more pronounced within the lower lobes with tiny bilateral pleural effusions. Material seen filling the lower lobe bronchi bilaterally either related to purulent material or perhaps mucus plugging. Deangelo Wren Jr., MD Carotid Artery Ultrasound 04/24/17 0000 Signed Impressions: Service Date/Time: April 09:45 - CONCLUSION: 1. No hemodynamically significant carotid artery stenosis. Arnie Middleton MD Hip X-Ray 04/21/17 0000 Signed Impressions: Service Date/Time: Friday, April 21, 2017 11:36 - CONCLUSION: Fluoroscopic images during placement of intramedullary siomara left femur. Benja Ramsey MD Objective Remarks CONSTITUTIONAL/GEN: Nonverbal, lying in bed. Intubated on ventilator, receiving tube feeds. Patient has her eyes open and grabs onto my hand, but does not follow command to let go. HEAD: Normocephalic. Atraumatic. LUNGS: Coarse breath sounds bilaterally CARDIOVASCULAR: Regular rate and regular rhythm. Upper and lower extremity pitting edema. GI/ABD: distended and tense without masses, without organomegaly. Firmness to palpation seemed worse in L upper and lower quadrants NEURO: Intubated; eyes open. Patient does not respond to commands today. : There is an area of purple discoloration and induration around the left labia majora. Dark straw-yellow urine draining into moser bag today MUSC: Bandages on lateral left hip covering ecchymosis. SCDs on bilateral lower extremities. Pedal pulses weak. SKIN: Stage II sacral decubitus ulcer, purple induration of left labia majora, diffusely edematous and weeping in certain places Procedures ORIF 04/21/17 Intubation 04/30/17 (Jose R Bennett MD R2) Date of Insertion: May 02, 2017 (Jose R Bennett MD R2) A/P Assessment and Plan 76 y/o female with HTN, DM, CVA admitted for DKA and hip fracture. Now with massive left MCA stroke, right hemiplegia and midline shift resolving. Neuro and registered travel nurse consulted. Working with palliative care and family for goals of care. 05/07 CT abdomen/pelvis shows large pneumothorax on left side decompressed with chest tube. -Overall poor prognosis, pursuing goals of care discussion with daughter (HCPOA) , but at this time daughter wishes continued intervention -05/09 - extensive discussion with daughter today indicates no willingness to pursue comfort measures only. Daughter continues to ask for aggressive management of her mother's condition; will continue to engage in this discussion Discharge Planning Pending stroke progression and discussion for goals of care (Jose R Bennett MD R2) Attending Attestation Patient seen and examined. Case reviewed and discussed with the resident team. Agree with plan of care as discussed with me and documented in the resident note. very ill woman overall. she may benefit in future from EEG to see what Neuro thinks about best and worst case scenarios on her mental and cognitive functioning. This information can be conveyed to her daughter. Can have continued discussions with her daughter, son in law and other family if available. Her daughter needs a realistic idea of prognosis as do I. Per chart, there is an application for medicaid but can check with case management whether that is possible as she evidently moved here from [place] 2 years ago. (Dawn Guajardo MD) Problem List: (1) Acute CVA (cerebrovascular accident) ICD Codes: I63.9 - Cerebral infarction, unspecified Status: Acute Plan: Patient found minimally responsive with neurological deficits around 0820 04/24. Stat CT of head was ordered, which showed large left MCA infarct. Diffuse edema throughout the left MCA distribution, suggest completed infarct. This was discussed and was not a candidate for intracranial intervention. CT (04/30): Reduction in midline shift to 11mm. Unchanged large left MCA infarction. CT head (05/06) shows: Evolving large left-sided MCA territory infarct with minimally improved dcwe-zj-pkuwj subfalcine shift. No intercurrent hemorrhage or other acute abnormality. Echocardiogram- The left ventricular systolic function is low normal with an estimated ejection fraction in the range of 50-55%. Mild concentric left ventricular hypertrophy. Normal left ventricular size. Upyfh-ks-fjgg mitral valve regurgitation. Carotid Artery US- No hemodynamically significant carotid stenosis -Consulted registered travel nurse, appreciate recs -Intubated/sedated; does not recommend tracheostomy -IV hydration, watch for hypotension. -Keep systolic to less than 220 -Lactated Ringer's reduced to 75 ml/hr -Poor prognosis -Neurosurgery consulted -Recommended conservative management -Keep Na in 145-154 range -Tube feeds: Glucerna 1.5 mLs for diet via Dobbhoff tube -Correction Officer [employer] consult for management and recs -Consult palliative care-appreciate recs -Case discussed with daughter in-person about goals of care, limited treatment options, and poor prognosis. -Daughter continues to want aggressive care. Wishes to continue aggressive medical treatment despite prognosis -Neurology consulted-appreciate recs -Rectal ASA -Lovenox 40mg daily (2) Sepsis ICD Codes: A41.9 - Sepsis, unspecified organism Status: Acute Plan: Impression: Pt met SIRS criteria with tachycardia, leukocytosis Leukocytosis resolved today. Cultures: 05/07 Blood cultures and sputum cultures negative to date 04/30 Sputum culture with staph, Serratia 04/29 blood culture with staph -See antibiotics as below -Culture results as below -Monitor vitals (3) HCAP (healthcare-associated pneumonia) ICD Codes: J18.9 - Pneumonia, unspecified organism Status: Acute Plan: Suspect possible HCAP. Persistent leukocytosis. Possible aspiration Chest CT (04/30): Bilateral pulmonary infiltrates more pronounced within lower lobes with b/l pleural effusions. Material in lower lobe bronchi b/l, purulent or mucus plugging 04/30 Sputum culture showing staph aureus and Serratia Marcescens Legionella and strep pneumo urine tests negative CXR 05/02: Increased airspace opacity bilaterally. The pattern may represent pulmonary edema. There is likely a left pleural effusion. CXR 05/08: Stable diffuse consolidation of right warm to much lesser extent left perihilar region consistent with pneumonia or asymmetric pulmonary vascular congestion CXR 05/09: no pneumothorax, but small subcutaneous emphysema in left chest, patchy opacity in right lower lung consistent with pneumonia or pulmonary vascular congestion. Continue antibiotic therapy -Levaquin IV 750 mg (05/04- ) HCAP -Flagyl 500mg q8H (04/29 - ) for aspiration -Repeat blood cultures (05/07) pending , with 1/ positive; possible contaminant -Duonebs treatments q6h Antibiotic History -Discontinued Cefepime 2g IV daily (04/30 - d/c 05/04 ) -Discontinued Vancomycin IV (04/30 - d/c 05/04 ) (4) Yeast UTI ICD Codes: B37.49 - Other urogenital candidiasis Status: Resolved Plan: UA showed glucose, large number of leukocytes esterase, innumerable WBCs , rare bacteria, and few yeast Urine culture shows Lea Glabrata; however, high GGT and Alk Phos require reducing hepatotoxic drugs -D/C Micafungin 100mg IV daily as it is hepatically metabolized -Urine cx 05/09 pending (5) Abdominal distension ICD Codes: R14.0 - Abdominal distension (gaseous) Status: Acute Plan: Impression: Abdominal distension evident on exam 05/05 with serial KUBs neg for etiology. In association with transaminase elevation and Alk P >1k and GGT elevation. s/p large BM 05/07 per nursing staff 05/06 - CT abdomen/pelvis- large left pneumothorax, bilateral lower lobe consolidation and bilateral moderate-sized pleural effusions, significant soft tissue thickening of right lateral chest wall and left gluteus. Mild ascites 05/09 - abdominal distension unchanged; however, LFTs resolving following chest tube -Continue to monitor at this time -Continue to follow LFTs 05/11 - abdominal distention seems to be related to diffuse edema, trial of Lasix 20 mg IV twice a day (6) Type 2 diabetes mellitus ICD Codes: E11.9 - Type 2 diabetes mellitus without complications Status: Chronic Plan: Admitted for DKA which has now resolved. Hemoglobin A1C is 12.9. Diabetes Type I is uncontrolled. -Continue Levemir 10 units BID due to hypoglycemia at higher dose -Medium dose insulin sliding scale with goal blood glucose between 140 and 180 -Glucerna for NG tube feedings -D/C Regular accuchecks (7) Atrial fibrillation ICD Codes: I48.91 - Unspecified atrial fibrillation Status: Acute Plan: Hx of intermittent Afib. Resolved with administration of Lopressor. -Continue to monitor -Lopressor PRN (8) Hip fracture ICD Codes: S72.009A - Fracture of unspecified part of neck of unspecified femur , initial encounter for closed fracture Status: Acute Plan: S/P left hip reduction and intramedullary nail fixation on 04-21-17 -Consult orthopedics-appreciate recs * WBAT * Daily dressing changes -Calcium/Vitamin D -Fluids as above -Tylenol, morphine PRN pain (9) Hypertension ICD Codes: I10 - Essential (primary) hypertension Status: Acute Plan: IV hydration. BPs wnl overnight -Continue fluids as above -Antihypertensives to keep SBP<180 -Lasix or Bumex for diuresis as required (10) Fluid overload ICD Codes: E87.70 - Fluid overload, unspecified Status: Acute Plan: Mica Miner noted fluid overload -Lasix IV bid -Metolazone and Bumex d/c'd (11) Pneumothorax ICD Codes: J93.9 - Pneumothorax, unspecified Status: Acute Plan: Impression: Noticed on 05/06 CT abdomen/pelvis- large left pneumothorax, bilateral lower lobe consolidation and bilateral moderate-sized pleural effusions. S/P chest tube placement 05/07 231 ml output overnight -Continue to monitor output at this time (12) On mechanically assisted ventilation ICD Codes: Z99.11 - Dependence on respirator [ventilator] status Plan: Impression: On mechanical ventilation; 55% FiO2 -Continue; weaning trials as tolerated (13) Elevated LFTs ICD Codes: R79.89 - Other specified abnormal findings of blood chemistry Plan: Impression: Recent LFT elevations over the past week with alkaline phosphatase gradually rising from 351-1931 and AST rising from 50s to 217. Liver/biliary etiology expected as GGT 787. Gallbladder ultrasound obtained by registered travel nurse 05/08; focally unremarkable in appearance of gallbladder -Monitor at this time (14) Fluids, Electrolytes, and Nutrition Status: Acute Plan: Fluids: IVF as above Electrolyte: on electrolyte protocol Nutrition: Glucerna tube feeds DVT ppx: SCDs/lovenox 40 mg daily GI ppx: protonix Colace, fleet enema mineral oil (Jose R Bennett MD R2) Problem Qualifiers (1) Sepsis: Qualified Codes: A41.9 - Sepsis, unspecified organism (2) Type 2 diabetes mellitus: Qualified Codes: E11.9 - Type 2 diabetes mellitus without complications (3) Atrial fibrillation: Qualified Codes: I48.0 - Paroxysmal atrial fibrillation (4) Hip fracture: (5) Hypertension: Qualified Codes: I10 - Essential (primary) hypertension (6) Fluid overload: Qualified Codes: E87.79 - Other fluid overload (7) Pneumothorax: Jose R Bennett MD R2 May 10, 2017 13:19 Dawn Guajardo MD May 11, 2017 11:02
--- NOTE | 2017-05-10 14:23 | HHI.PR ---
Review/Management Diagnosis large left MCA stroke-exam improved today Diagnosis/Plan: Subjective Subjective Comments No acute events reported Active Medications Current Medications Medications (Trade) Dose Ordered Sig/Zeferino Route Start Time Stop Time Status Last Admin (Zofran Inj) 4 mg Q6H PRN IV PUSH 04/20/17 15:00 04/30/17 02:28 (Morphine Inj) 1 mg Q3H PRN IV 04/20/17 17:15 04/28/17 18:15 (Morphine Inj) 2 mg Q3H PRN IV 04/20/17 17:15 04/30/17 02:29 (Narcan Inj) 0.4 mg UNSCH PRN IV 04/20/17 17:15 (Milk Of Magnesia Liq) 30 ml Q12H PRN PO 04/20/17 20:30 (Senokot) 17.2 mg Q12H PRN PO 04/20/17 20:30 04/23/17 22:55 (Dulcolax Supp) 10 mg DAILY PRN RECTAL 04/20/17 20:30 (Oscal-D 250-125) 250 mg TID PO 04/21/17 13:00 05/10/17 13:08 (Vitamin D3) 5,000 units DAILY PO 04/22/17 09:00 05/10/17 09:49 (NS Flush) 2 ml BID IV FLUSH 04/24/17 21:00 05/09/17 21:21 (NS Flush) 2 ml UNSCH PRN IV FLUSH 04/24/17 09:30 (Glucagon Inj) 1 mg UNSCH PRN IM/SQ 04/24/17 18:15 (Aspirin) 325 mg DAILY DOBHOFF 04/27/17 09:00 05/10/17 09:49 (D50w (Syr) Inj) 25 ml UNSCH PRN IV 04/26/17 20:30 05/09/17 15:40 (Lopressor Inj) 5 mg Q5M PRN IV PUSH 04/27/17 04:00 05/03/17 18:26 Potassium Chloride 100 ml @ 50 mls/hr Q2H PRN IV 04/27/17 08:45 Potassium Chloride 100 ml @ 50 mls/hr Q2H PRN IV 04/27/17 08:45 05/09/17 19:17 (K-Lyte Cl Eff) 50 meq UNSCH PRN PO 04/27/17 08:45 Potassium Chloride 100 ml @ 25 mls/hr UNSCH PRN IV 04/27/17 08:45 05/04/17 19:07 Potassium Chloride 100 ml @ 50 mls/hr Q2H PRN IV 04/27/17 08:45 04/29/17 12:15 Magnesium Sulfate 4 gm/Sodium Chloride 100 ml @ 50 mls/hr UNSCH PRN IV 04/27/17 08:45 (Mag-Ox) 800 mg UNSCH PRN PO 04/27/17 08:45 Magnesium Sulfate 2 gm/Sodium Chloride 100 ml @ 50 mls/hr UNSCH PRN IV 04/27/17 08:45 (K-Phos) 2,000 mg Q4H PRN PO 04/27/17 08:45 04/28/17 15:38 Sodium Phosphate 30 mmol/Sodium Chloride 250 ml @ 42 mls/hr UNSCH PRN IV 04/27/17 08:45 04/27/17 23:59 (K-Phos) 2,000 mg UNSCH PRN PO/TUBE 04/27/17 08:45 05/08/17 06:32 Potassium Phosphate 30 mmol/ Sodium Chloride 260 ml @ 42 mls/hr UNSCH PRN IV 04/27/17 08:45 05/04/17 20:54 (NovoLOG SUPPLEMENTAL SCALE) 1 ACHS SLIDING SCALE SQ 04/28/17 16:00 05/10/17 11:00 (Flagyl) 500 mg Q8HR DOBHOFF 04/29/17 14:00 05/10/17 13:08 (Lovenox Inj) 40 mg Q24H SQ 05/01/17 08:00 05/10/17 09:49 Levofloxacin/ Dextrose 150 ml @ 100 mls/hr Q24H IV 05/04/17 09:00 05/10/17 09:49 (Colace Liq) 100 mg Q12HR PO 05/07/17 21:00 05/10/17 09:49 (Senna Liq) 8.8 mg BID OG-TUBE 05/07/17 21:00 05/10/17 09:50 (Lactulose Liq) 30 ml QID PO 05/07/17 18:00 05/10/17 09:00 (Miralax) 17 gm BID OG-TUBE 05/07/17 21:00 05/10/17 09:50 (Albuterol Neb) 2.5 mg Q2HR NEB PRN NEB 05/07/17 13:00 05/10/17 00:35 (Prevacid Odt) 30 mg DAILY NG 05/08/17 09:00 05/10/17 09:50 (Levemir Inj) 15 units Q12H SQ 05/07/17 21:00 05/10/17 09:53 (Duoneb Neb) 1 ampule Q6HR NEB NEB 05/08/17 16:00 05/10/17 10:00 (Lasix Inj) 20 mg BID@18 IV PUSH 05/10/17 10:00 05/10/17 09:52 Allergies Allergies Coded Allergies No Known Allergies (Unverified04/20/17) Review of Systems All other ROS: Unable to obtain Exam I&O / VS Vital Signs Date Time Temp Pulse Resp B/P (MAP) Pulse Ox O2 Delivery O2 Flow Rate FiO2 05/10/17 11:40 99 55 05/10/17 08:51 55 05/10/17 08:50 55 05/10/17 08:24 95 55 05/10/17 08:00 55 05/10/17 08:00 98.4 93 24 118/67 (84) 93 05/10/17 07:00 93 Mechanical Ventilator 45 05/10/17 06:00 94 05/10/17 04:09 99 55 05/10/17 04:00 97.9 94 16 124/63 (83) 95 05/10/17 04:00 94 05/10/17 04:00 55 05/10/17 02:00 92 05/10/17 00:10 93 55 05/10/17 00:00 55 05/10/17 00:00 96.9 90 14 121/68 (85) 95 05/09/17 22:40 97 55 05/09/17 22:00 88 05/09/17 20:24 98 55 05/09/17 20:00 55 05/09/17 20:00 100 05/09/17 20:00 97.0 100 14 131/73 (92) 95 05/09/17 19:00 98 Mechanical Ventilator 45 05/09/17 18:00 86 05/09/17 16:00 98.5 111 16 134/68 (90) 93 05/09/17 16:00 55 05/09/17 16:00 111 05/09/17 15:08 96 55 Cardiology: Normal rate (Tachycardic) Musculoskeletal: ROM (within normal limits) Exam Comments Intubated, more alert and follows commands. CN--EOM--intact.. PERRL, Right upper motor neuron CN 7 palsey. 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 , no pulling unit operator on right Objective Micro and Labs Laboratory Tests Test 05/10/17 04:26 05/10/17 08:03 05/10/17 12:00 Blood Urea Nitrogen 27 Creatinine 0.40 Random Glucose 112 Total Protein 5.5 Albumin 1.3 Calcium Level 7.7 Alkaline Phosphatase 983 Aspartate Amino Transf (AST/SGOT) 50 Alanine Aminotransferase (ALT/SGPT) 29 Total Bilirubin 0.3 Direct Bilirubin 0.2 Sodium Level 144 Potassium Level 4.3 Chloride Level 107 Carbon Dioxide Level 31.5 Anion Gap 6 Estimat Glomerular Filtration Rate 156 Indirect Bilirubin 0.1 White Blood Count 9.8 Red Blood Count 2.31 Hemoglobin 7.4 Hematocrit 22.7 Mean Corpuscular Volume 98.3 Mean Corpuscular Hemoglobin 32.1 Mean Corpuscular Hemoglobin Concent 32.6 Red Cell Distribution Width 16.1 Platelet Count 417 Mean Platelet Volume 8.5 Neutrophils (%) (Auto) 87.4 Lymphocytes (%) (Auto) 7.9 Monocytes (%) (Auto) 3.4 Eosinophils (%) (Auto) 1.1 Basophils (%) (Auto) 0.2 Neutrophils # (Auto) 8.6 Lymphocytes # (Auto) 0.8 Monocytes # (Auto) 0.3 Eosinophils # (Auto) 0.1 Basophils # (Auto) 0.0 CBC Comment AUTO DIFF Differential Total Cells Counted 100 Neutrophils % (Manual) 77 Band Neutrophils % 7 Lymphocytes % 9 Monocytes % 4 Eosinophils % 1 Neutrophils # (Manual) 8.4 Myelocytes 2 Differential Comment FINAL DIFF MANUAL Platelet Estimate NORMAL Platelet Morphology Comment NORMAL Polychromasia 3.3 Date/Time Source Procedure Growth Status 05/08/17 04:44 Blood Peripheral Aerobic Blood Culture - Preliminary NO GROWTH IN 2 DAYS Resulted 05/08/17 04:44 Blood Peripheral Anaerobic Blood Culture - Preliminary NO GROWTH IN 2 DAYS Resulted 05/07/17 21:30 Sputum Endotracheal Gram Stain - Final Complete 05/07/17 21:30 Sputum Culture - Final Serratia Marcescens Complete 05/08/17 04:20 Urine Catheterized Urine Urine Culture - Final NO GROWTH IN 48 HOURS. Complete Marcio Malave PhD May 10, 2017 14:23
--- NOTE | 2017-05-10 19:29 | RADRPT ---
EXAM DATE/TIME: 05/10/2017 19:03 [facility] COMPARISON: ABDOMEN SINGLE VIEW, April 25, 2017, 14:56. INDICATIONS : Evaluate for DOBHOFF placement. MEDICAL HISTORY : None. SURGICAL HISTORY : None. ENCOUNTER: Subsequent ACUITY: 1 day PAIN SCORE: Non-responsive. LOCATION: Abdomen FINDINGS: Tip of Dobbhoff catheter is located in the fundus of the stomach. CONCLUSION: Tip of the Dobbhoff is in the stomach fundus. Sage Adler MD on May 10, 2017 at 19:27 Board Certified Radiologist. This report was verified electronically.
[2017-05-10 19:52] LABS: ALK PHOS BONE (ISOENZYMES) 41 % (28-66); ALK PHOS INTESTINE (ISOENZYME) 0 % (1-24); ALK PHOS LIVER (ISOENZYME) 59 % (25-69); ALK PHOS PLACENTAL ISOENZYME 0 % (UNDETECTABLE)
--- NOTE | 2017-05-10 22:32 | RADRPT ---
EXAM DATE/TIME: 05/10/2017 22:08 [facility] COMPARISON: ABDOMEN KUB ONLY, May 06, 2017, 17:42. INDICATIONS : Confirm NG tube placement. MEDICAL HISTORY : Hypertension. Diabetes mellitus type I. Cerebrovascular disease. SURGICAL HISTORY : None. ENCOUNTER: Subsequent ACUITY: 2 weeks PAIN SCORE: Non-responsive. LOCATION: Abdomen. FINDINGS: Tip of Dobbhoff catheter is in the antrum of the stomach. CONCLUSION: Tip of Dobbhoff catheter is in the antrum of the stomach. Sage Adler MD on May 10, 2017 at 22:30 Board Certified Radiologist. This report was verified electronically.
[2017-05-11] VITALS (18 sets, daily range): BP systolic 111–145; BP diastolic 57–63; PULSE 79–110; RESP 14–21; TEMP 97.7–98.5; O2SAT 97–100
[2017-05-11] MEDS: DEXTROSE 50% IN WATER 50 ML SYRINGE IV PRN ×3 (00:04→01:35)
[2017-05-11] MEDS: RESP: ALBUTEROL 2.5 MG/IPRATROPIUM 0.5 MG NEB (SCH) NEB ×4 (01:02→20:19)
[2017-05-11] MEDS: metroNIDAZOLE 500 MG TAB DOBHOFF SCH ×3 (05:44→22:44)
[2017-05-11 06:07] LABS: ALBUMIN 0.7 GM/DL (3.4-5.0); BICARBONATE 35.5 MEQ/L (21.0-32.0); CALCIUM 6.6 MG/DL (8.5-10.1); CREATININE 0.37 MG/DL (0.50-1.00); DIRECT BILIRUBIN ADULT 0.2 MG/DL (0.0-0.2); INDIRECT BILIRUBIN 0.4 MG/DL (0.0-0.8); TOTAL BILIRUBIN ADULT 0.6 MG/DL (0.2-1.0); TOTAL PROTEIN 3.1 GM/DL (6.4-8.2)
[2017-05-11 06:14] LABS: CALCIUM-PROTEIN CORRECTED 8.9 MG/DL (8.5-10.1)
[2017-05-11] MEDS: SODIUM CHLORIDE 0.9% FLUSH 5 ML FLUSH IV FLUSH SCH ×2 (07:28→21:00)
[2017-05-11] MEDS: INSULIN DETEMIR 100 UNITS/ML VIAL SQ SCH ×2 (09:00→22:45)
[2017-05-11] MEDS: POLYETHYLENE GLYCOL 17 GM PKG OG-TUBE SCH ×2 (09:08→19:42)
[2017-05-11] MEDS: LANSOPRAZOLE SOLUTAB 30 MG TAB NG SCH (09:08)
[2017-05-11] MEDS: DOCUSATE SODIUM 100 MG/10 ML UDC PO SCH ×2 (09:08→19:43)
[2017-05-11] MEDS: INSULIN ASPART SUPPLEMENTAL SCALE SQ SCH ×4 (09:08→22:45)
[2017-05-11] MEDS: LEVOFLOXACIN 750 MG PREMIX INJ 150 ML IV SCH (09:08)
[2017-05-11] MEDS: LACTULOSE SYRUP 20 GM/30 ML CUP PO SCH ×4 (09:08→19:43)
[2017-05-11] MEDS: CALCIUM/VITAMIN D 250 MG/125 U TAB PO SCH ×3 (09:08→17:05)
[2017-05-11] MEDS: ENOXAPARIN SODIUM 40 MG/0.4 ML SYRINGE SQ SCH (09:08)
[2017-05-11] MEDS: SENNOSIDES SYRUP 8.8 MG/5 ML CUP OG-TUBE SCH ×2 (09:09→19:42)
[2017-05-11] MEDS: ASPIRIN 325 MG TAB DOBHOFF SCH (09:09)
[2017-05-11] MEDS: FUROSEMIDE 40 MG/4 ML VIAL IV PUSH SCH ×2 (09:09→17:06)
--- NOTE | 2017-05-11 09:28 | HHI.CCPN ---
Subjective Remarks/Hospital Course 04/24: 76-year-old female with a medical history significant for prior stroke, diabetes mellitus who was admitted with DKA and a hip fracture for which she underwent ORIF on 04/21. Patient developed altered mental status and was last noted to be okay around 5:30 AM. Subsequently there was a change in her mental status and she was noted to not be moving her right side for which stroke alert was called. Head CT showed large left MCA territory ischemic infarct with edema. Patient was transferred to the ICU by family medicine service in the critical care consult was requested. I evaluated the patient following arrival to the ICU. At that time she was laying in bed with her eyes open however not following commands and had a dense right hemiplegia. Patient was also evaluated by Dr. Malave from neurology. I further discussed current event with patient's daughter following her arrival to the ICU. Per the daughter patient has been living with her since her stroke in 2014 and does ambulate however has been having problems with memory and incontinence as well as gait difficulties. She does not feel patient would want intubation or tracheostomy or PEG tube. 04/25: Patient remains encephalopathic, awake though not following commands consistently. Dense right hemiplegia persists. Appears to be awake enough to protect airway currently. Patient's daughter rescinded DNR and made a full code last evening. 04/26: Remains encephalopathic, not following commands. On Dobbhoff for tube feeds at 30 cc per hour. Had urinary retention and drained 2 L of urine after placing Leavitt catheter today. CT head done this morning with large left MCA territory infarct with left to right midline shift and significant cerebral edema. Hyperglycemia noted. Patient given mannitol earlier for increasing cerebral edema. 04/27: Remains encephalopathic, not following commands. On Dobbhoff tube feeds at 30 cc per hour. When into A. fib with RVR last night which responded with Lopressor 5 mg IV 1 dose. 04/28: Remains encephalopathic, arousable, not following commands. Moves left upper extremity spontaneously. Tolerating Dobbhoff tube feeds. Remains on nasal cannula. 04/29: Encephalopathic, eyes be arousable, moves left upper extremity spontaneously and occasionally opens eyes. Dense right hemiplegia and aphasia persists. On nasal cannula. Dobbhoff tube feeds being advanced. Patient was transfused 1 unit PRBCs yesterday. Urine culture with yeast from yesterday for which fluconazole being started. Had brief run of A. fib with RVR which improved with Lopressor IV, currently in sinus rhythm. 04/30: Worsening hypoxemic respiratory failure, currently on partial nonrebreather. Remains lethargic. WBC count increased from 14.6 today 20.7. Chest x-ray shows bilateral worsening infiltrates and small pleural effusions. Sodium 154, weight up by 8 KG. Albumin 1 mg Bumex 1. Also one dose of albumin. Remains in sinus tachycardia. Tmax 101.3 05/01: Patient was intubated yesterday for lack of airway protection, and severe hypoxemic respiratory failure from aspiration pneumonia involving multiple lobes. Patient is on the vent lethargic, no spontaneous eye opening. Chest x- ray remains unchanged. Remains intermittently febrile Tmax 101.3. WBC count improving 05/02: Remains critically ill with no improvement in mental status. Spiking fever of 101.7. Blood culture and sputum culture with staph aureus sputum also growing GNR, WBC count 22,000 now indicating worsening sepsis. Daughter still requesting aggressive care. Palliative care is following 05/03: S/P large area dominant hemisphere CVA. No neurological improvement. Now with pneumonia (infiltrate, fever, leukocytosis) and appropriate abx coverage. She will have a hard time surviving the hip fx, CVA, and pneumonia. Palliative Care needs to be a mainstay of our plan. 05/04: No improvement in neuro status. Sputum C&S allows us to narrow abx coverage to levaquin alone. Lungs remain quite congested. Enteral nutrition tolerated. 05/05: No improvement in neuro status. Moves left arm spontaneously. Flaccid right side. Unresponsive. Persistent mild hypoglycemia - will cut Levemir 50%. Abdomen more distended, check KUB. 05/06: CT head with massive left MCA infarction and > 1 cm shift in right handed woman. She opens eyes, does not track. 05/07: Patient open eyes. Attempts to respond. Citizen [place] speaking. Tolerating tube feeds. Positive bowel movement. Volume overloaded. Subjective 05/08: Tmax 99.4. Potassium being replaced. Ultrasound gallbladder currently pending. Transaminases are trending downward. Gently diurese. 05/09: Alk phos decreasing. Remains with good urine output. Neurological status not improving. 05/10: Fixed neuro deficit unchanged. Profound CVA. 05/11: Appears to track with eyes today. No improvement in motor function. Remains very edematous, diuretics doubled. Objective Vital Signs Date Time Temp Pulse Resp B/P (MAP) Pulse Ox O2 Delivery O2 Flow Rate FiO2 05/11/17 09:19 45 05/11/17 09:11 99 05/11/17 07:00 Mechanical Ventilator 05/11/17 06:00 106 05/11/17 04:00 97.8 15 111/61 (78) Intake and Output 05/11/17 05/11/17 05/12/17 08:00 16:00 00:00 Intake Total 232 ml Output Total 1145 ml Balance -913 ml Result Diagram: 05/10/17 0803 05/11/17 0455 Imaging Last Impressions Chest X-Ray 05/07/17 0400 Signed Impressions: Service Date/Time: Sunday, May 07, 2017 04:38 - CONCLUSION: 1. Stable Low-lying ETT with tip approximately 1 cm above the vlaerie. 2. Mild interval progression of bilateral airspace consolidation exaggerated by patient rotation. 3. Increased small left pleural effusion. Alejo De La Vega MD Abdomen/Pelvis CT 05/07/17 0000 Signed Impressions: Service Date/Time: Sunday, May 07, 2017 13:23 - CONCLUSION: 1. Large left pneumothorax. 2. Bilateral lower lobe consolidation and bilateral moderate size pleural effusions. 3. Significant soft tissue thickening of the right lateral chest wall and left gluteus muscle. 4. Mild ascites. The findings were called to Dr. Carney. Deangelo Zamora MD Head CT 05/06/17 0000 Signed Impressions: Service Date/Time: Saturday, May 06, 2017 04:18 - CONCLUSION: 1. Evolving large left-sided MCA territory infarct with minimally improved hbvo-ux-autam subfalcine shift. 2. No intercurrent hemorrhage or other acute abnormality. Alejo De La Vega MD Abdomen X-Ray 05/06/17 0000 Signed Impressions: Service Date/Time: Saturday, May 06, 2017 17:42 - CONCLUSION: Dobbhoff feeding tube tip near the gastroduodenal junction. Obdulio Simms MD Hip and Pelvis X-Ray 05/05/17 0000 Signed Impressions: Service Date/Time: Friday, May 05, 2017 10:59 - CONCLUSION: Left proximal femur trochanteric/subtrochanteric fracture lucency visualized. Postoperative changes. Choco Mustafa MD Chest CT 04/30/17 0000 Signed Impressions: Service Date/Time: Sunday, April 30, 2017 09:20 - CONCLUSION: 1. Bilateral pulmonary infiltrates more pronounced within the lower lobes with tiny bilateral pleural effusions. Material seen filling the lower lobe bronchi bilaterally either related to purulent material or perhaps mucus plugging. Deangelo Wren Jr., MD Carotid Artery Ultrasound 04/24/17 0000 Signed Impressions: Service Date/Time: April 09:45 - CONCLUSION: 1. No hemodynamically significant carotid artery stenosis. Arnie Middleton MD Hip X-Ray 04/21/17 0000 Signed Impressions: Service Date/Time: Friday, April 21, 2017 11:36 - CONCLUSION: Fluoroscopic images during placement of intramedullary siomara left femur. Benja Ramsey MD Objective Remarks Gen: 76-year-old female, critically ill currently orotracheally intubated HEENT: Pallor present. Moderate dark ET tube secretions Neck: No JVD, orally intubated. Chest/pulmonary: Diffuse rhonchorous breath sounds bilaterally anterior- posterior. Diminished in bases left greater than right. Chest tube #10 Setswana left-sided -40 cm H2O 225 cc yellow Cardiovascular: RRR. S1, S2 no S4 without murmur GI/abdomen: Distended. Nontender. Hypoactive bowel sounds are present. Extremities: Warm bilaterally, anasarca 2+ upper and 2+ lower extremity edema. Incision sites over left hip, thigh ORIF site clean dry and intact. No fluctuation or induration Neuro: Intubated on no sedation. Spontaneous eye opening, stares to left, does not track. Dense right hemiplegia noted. Localizes with left upper extremity, Withdraws LLE. No change. Pupils 2 mm, react. Date of Insertion: May 02, 2017 A/P Assessment and Plan Neuro/Psych: Left MCA CVA - 12 mm of [id number] subfalcine herniation - right-sided hemiplegia Acute encephalopathy History CVA Follow neuro status closely. Continue Aspirin 325 mg by mouth daily Patient was not a candidate for thrombolysis per discussion with neurology and radiology. Repeat head CT 05/05 showed slight improvement in the midline shift and mass effect Neurosurgery consulted 04/30- Dr. López, recommended conservative management Neurology following - Dr. Malave On morphine 1-2 every 3 hours when necessary pain Cardiovascular: Hypertension IV fluids currently on hold due to edema As needed Antihypertensives to keep systolic blood pressure less than to 180 mmHg Echocardiogram 04/24 - EF 50 to 55%. Mild concentric LVH. Pulmonary: Acute hypoxic respiratory failure - aspiration possible HCAP Large left pneumothorax status post #10 Setswana chest tube 05/07 PRVC 14/400/09/08/49 Ventilator bundle Ipratropium/albuterol aerosols every 6 hours with albuterol aerosols every 2 hours. Dyspnea Intubated on 04/30/17 for worsening hypoxemic respiratory failure, aspiration pneumonia Chest x-ray shows 05/08 revealed increasing infiltrate/small pleural effusion left side. Right-sided chest tube in place. Small subcutaneous emphysema. CT of the chest 04/30/17 showed severe bibasilar consolidation, and evidence of aspiration GI/liver: Elevated transaminases Hypoalbuminemia Moderate to severe protein calorie malnutrition Dobbhoff for tube feedings and medications. Continue tube feeding with Glucerna 1.5 goal 45 cc an hour On hold 05/08 due to possible cholecystostomy tube placement depending on ultrasound gallbladder Lansoprazole 30 mg daily for GI regimen Docusate sodium 100 twice a day, Senokot 8.6 twice a day, polyethylene glycol 17 grams twice a day and lactulose 30 cc 4 times a day Evaluate CT abdomen/pelvis 05/07 - mild ascites. Large left hemothorax. Right greater than left pleural effusion. Avoid hepatotoxic drugs LFTs improving Endocrine: Diabetes mellitus Detemir 5 units subcutaneous every 12 hours. Currently hold while nothing by mouth Sliding scale insulin Accu-Cheks to maintain euglycemia/low regimen Holding glimepiride 4 mill grams by mouth daily /Renal/FEN: Hypopotassemia Strict intake output, monitor and replete electrolytes, follow BUN/creatinine. Leavitt catheter placed for urinary retention on 04/26. Heme: Chronic Rivaroxaban use Leukocytosis Normocytic anemia Thrombocytosis Follow CBC and coags. On subcutaneous enoxaparin Hemoglobin currently stable. No indications for transfusion of blood proximally at this time ID: MSSA bacteremia Serratia/staph aureus pneumonia C glabrata UTI Currently on IV levofloxacin, by mouth metronidazole and micafungin Pertinent cultures Urine culture 04/26/17 sofie glabrata Blood culture 04/29/17 1 out of 4 bottles staph aureus Sputum culture 04/30/17 staph aureus and Serratia. Blood cultures 2, sputum 1 and urine 05/08 pending -> Serratia MSK: Left Intertroch Hip Fx s/p IMN - POD 14 Vitamin D deficiency WBAT DC ginger today redress with Xeroform/Primapore Prophylaxis: SCDs. Enoxaparin 40 mg sq daily-cleared by Dr. Ananda SANDS - lansoprazole Overall impression: Devastating CVA. Recovery will be difficult. No improvement. Family coming to discuss hopefully. Charles Pedraza MD May 11, 2017 09:28
--- NOTE | 2017-05-11 10:11 | RADRPT ---
EXAM DATE/TIME: 05/11/2017 09:37 [facility] COMPARISON: CHEST SINGLE AP, May 09, 2017, 7:30. INDICATIONS : Shortness of breath. Concern for pleural effusion. MEDICAL HISTORY : Stroke. Hypertension Diabetes, Pneumothorax. SURGICAL HISTORY : None. ENCOUNTER: Initial ACUITY: 1 day PAIN SCORE: Non-responsive. LOCATION: Bilateral chest FINDINGS: Portable AP view of the chest demonstrates a normal-sized cardiac silhouette. Endotracheal tube remai ns present with tip at the aortic knob level and feeding tube courses beyond the GE junction. There i s bilateral perihilar and lower lungs and predominant air space opacity with right pleural-based opac ity. Multiple lines overlie the patient. No pneumothorax is visualized. CONCLUSION: 1. Small right pleural effusion. 2. Bilateral mid and lower lung zone predominant air space opacity could represent pulmonary edema gi fartun the appearance and distribution. Obdulio Sam MD on May 11, 2017 at 10:09 Board Certified Radiologist. This report was verified electronically.
[2017-05-11] MEDS: CHOLECALCIFEROL (VIT D3) 5000 UNIT CAP PO SCH (10:35)
--- NOTE | 2017-05-11 11:27 | HHI.NSPN ---
(Rene Reed) History Chief Complaint: Unable to obtain due to the patient's clinical condition. 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 05/03/2017: Remains intubated. Minimal eye opening to sternal rub. Grasps left hand good strength to command. 05/06: Patient continues to be intubated and off any sedation. She had a repeat CT brain this morning which demonstrated an evolving large left-sided MCA territory infarct with minimal improvement in the qdru-ru-rhoep subfalcine shift. 05/07/17: Remains intubated. Awake and relatively alert. Minimally disconjugate left gaze and response to voice. Moves left upper and lower extremity well to command. CPAP trials 05/08: Patient still is intubated and is on pressure controlled ventilation. She is not on any sedation and arouses to noxious stimulation. The patient was noted to have a left-sided pneumothorax on her chest x-ray yesterday and the Learning Administrator placed a tube thoracostomy. 05/09: The patient is awake and fairly alert when seen. She does interact readily. The left-sided tube thoracostomy remains in place. 05/10: The patient remains intubated and mechanically ventilated. Initially the patient had her eyes closed but did follow commands. A few minutes later she was noted to have her eyes open without any stimulation. 05/11: This morning the patient is noted to have her eyes open and does appear to look about the room. She does follow commands. She remains intubated and mechanically ventilated. (Rene Reed) System Review Comments Unable to obtain due to the patient's clinical condition. (Rene Reed) Exam Results 05/09/17 05/09/17 05/10/17 05/10/17 05/11/17 05/11/17 05:59 17:59 05:59 17:59 05:59 17:59 Intake Total 400 ml 892 ml 947 ml 748 ml 642 ml 232 ml Output Total 1730 ml 495 ml 300 ml 275 ml 1000 ml 1145 ml Balance -1330 ml 397 ml 647 ml 473 ml -358 ml -913 ml IV Total 414 ml 350 ml 246 ml 141 ml 19 ml Tube Feeding 150 ml 358 ml 497 ml 502 ml 501 ml 213 ml Other 250 ml 120 ml 100 ml Output Urine Total 1700 ml 475 ml 300 ml 275 ml 1000 ml 1125 ml Chest Tube Drainage Total 30 ml 20 ml 0 ml 0 ml 20 ml # Bowel Movements 2 4 3 Vital Signs Date Time Temp Pulse Resp B/P (MAP) Pulse Ox O2 Delivery O2 Flow Rate FiO2 05/11/17 10:00 91 05/11/17 09:19 45 05/11/17 09:15 45 05/11/17 09:11 99 45 05/11/17 08:00 98.5 89 15 145/63 (90) 97 05/11/17 08:00 45 05/11/17 08:00 89 05/11/17 07:00 96 Mechanical Ventilator 45 05/11/17 06:00 106 05/11/17 04:17 99 45 05/11/17 04:00 45 05/11/17 04:00 97.8 98 15 111/61 (78) 100 05/11/17 04:00 98 05/11/17 02:00 110 05/11/17 01:03 100 45 05/11/17 00:00 45 05/11/17 00:00 80 05/11/17 00:00 98.5 80 14 119/60 (79) 100 05/10/17 22:00 89 05/10/17 20:02 99 55 05/10/17 20:00 55 05/10/17 20:00 97.9 82 20 128/71 (90) 100 05/10/17 20:00 82 05/10/17 19:00 98 Mechanical Ventilator 45 05/10/17 16:02 98 55 05/10/17 16:00 55 05/10/17 16:00 98.1 86 14 116/61 (79) 100 05/10/17 12:00 55 05/10/17 12:00 98.1 98 23 129/79 (96) 100 05/10/17 11:40 99 55 05/10/17 08:51 55 05/10/17 08:50 55 05/10/17 08:24 95 55 05/10/17 08:00 55 05/10/17 08:00 98.4 93 24 118/67 (84) 93 05/10/17 07:00 93 Mechanical Ventilator 45 05/10/17 06:00 94 05/10/17 04:09 99 55 05/10/17 04:00 97.9 94 16 124/63 (83) 95 05/10/17 04:00 94 05/10/17 04:00 55 05/10/17 02:00 92 05/10/17 00:10 93 55 05/10/17 00:00 55 05/10/17 00:00 96.9 90 14 121/68 (85) 95 05/09/17 22:40 97 55 05/09/17 22:00 88 05/09/17 20:24 98 55 05/09/17 20:00 55 05/09/17 20:00 100 05/09/17 20:00 97.0 100 14 131/73 (92) 95 05/09/17 19:00 98 Mechanical Ventilator 45 05/09/17 18:00 86 05/09/17 16:00 98.5 111 16 134/68 (90) 93 05/09/17 16:00 55 05/09/17 16:00 111 05/09/17 15:08 96 55 05/09/17 14:00 87 05/09/17 12:00 89 05/09/17 12:00 45 05/09/17 12:00 98.1 99 16 133/60 (84) 93 05/09/17 11:26 100 45 05/09/17 10:00 94 05/09/17 08:00 45 05/09/17 08:00 98.5 87 24 148/66 (93) 95 05/09/17 08:00 87 05/09/17 07:57 94 55 05/09/17 07:00 91 Mechanical Ventilator 45 05/09/17 06:00 89 05/09/17 04:06 92 45 05/09/17 04:00 98 05/09/17 04:00 98.4 98 14 130/60 (83) 90 05/09/17 04:00 45 05/09/17 02:00 85 05/09/17 01:13 96 45 05/09/17 00:00 45 05/09/17 00:00 90 05/09/17 00:00 98.3 90 14 133/64 (87) 96 05/08/17 22:15 96 45 05/08/17 22:00 93 05/08/17 20:25 99 50 05/08/17 20:00 98.4 91 17 134/64 (87) 100 05/08/17 20:00 50 05/08/17 20:00 91 05/08/17 19:00 98 Mechanical Ventilator 50 05/08/17 18:00 104 05/08/17 16:00 98.3 97 18 108/57 (74) 94 05/08/17 16:00 97 05/08/17 16:00 50 05/08/17 15:38 92 40 05/08/17 14:00 91 05/08/17 13:35 97 50 05/08/17 12:00 99.0 96 14 124/82 (96) 96 05/08/17 12:00 96 05/08/17 12:00 50 (Rene Reed) Physical Examination GENERAL: Intubated w/o any sedation. No apparent distress. SKIN: Cool, with generalised dependent edema, w/o any evident rashes, ulcerations or lesions. HEENT: Normocephalic, atraumatic. PERRL. Orally intubated. Right nare feeding tube. NECK: No JVD, trachea midline. CARDIOVASCULAR: S1S2 w/RRR w/o M/G/R, radial & pedal pulses 1+ bilaterally, cap refill < 2 sec, generalised dependent edema. Monitor appears to be sinus rhythm w/o any ectopy noted. RESPIRATORY: Slightly coarse bilaterally, equal excursion, nonlaboured, intubated and on pressure controlled ventilation. Left-sided tube thoracotomy to water seal. GASTROINTESTINAL: Abdomen slightly distended but soft, bowel sounds not appreciated. Feeding tube w/enteral feeds. MUSCULOSKELETAL: No evident deformity or clubbing. NEUROLOGICAL: Intubated w/o any sedation. GCS 11T (E4 V1T M6). Eyes open and appears to be looking about the room. PERRLA, appeared to focus but not track. Weak left hand grasp to command, no response to command or local noxious stimulation to RUE or BLE. Persistent right hemiplegia. (Rene Reed) Lab, Micro, Other Results Recent Impressions Chest X-Ray 05/11/17 0000 Signed Impressions: Service Date/Time: Thursday, May 11, 2017 09:37 - CONCLUSION: 1. Small right pleural effusion. 2. Bilateral mid and lower lung zone predominant air space opacity could represent pulmonary edema given the appearance and distribution. Obdulio Sam MD Abdomen X-Ray 05/10/17 0000 Signed Impressions: Service Date/Time: Wednesday, May 10, 2017 22:08 - CONCLUSION: Tip of Dobbhoff catheter is in the antrum of the stomach. Sage Adler MD Abdomen X-Ray 05/10/17 0000 Signed Impressions: Service Date/Time: Wednesday, May 10, 2017 19:03 - CONCLUSION: Tip of the Dobbhoff is in the stomach fundus. Sage Adler MD Chest X-Ray 05/09/17 0000 Signed Impressions: Service Date/Time: Tuesday, May 09, 2017 07:30 - CONCLUSION: Chest tube in subcutaneous tissues on the left without pneumothorax. This can be removed. Minimal interval improvement with less parenchymal changes. Ricardo Middleton MD FACR Laboratory Tests Test 05/08/17 21:10 05/09/17 04:20 05/09/17 14:04 05/10/17 04:26 White Blood Count 14.7 TH/MM3 13.5 TH/MM3 Red Blood Count 2.43 MIL/MM3 2.49 MIL/MM3 Hemoglobin 7.7 GM/DL 7.6 GM/DL Hematocrit 23.8 % 24.4 % Mean Corpuscular Volume 98.2 FL 98.0 FL Mean Corpuscular Hemoglobin 31.8 PG 30.8 PG Mean Corpuscular Hemoglobin Concent 32.4 % 31.4 % Red Cell Distribution Width 14.9 % 15.2 % Platelet Count 482 TH/MM3 526 TH/MM3 Mean Platelet Volume 9.4 FL 8.7 FL Neutrophils (%) (Auto) 92.1 % 89.1 % Lymphocytes (%) (Auto) 5.2 % 7.8 % Monocytes (%) (Auto) 2.5 % 2.3 % Eosinophils (%) (Auto) 0.1 % 0.3 % Basophils (%) (Auto) 0.1 % 0.5 % Neutrophils # (Auto) 13.6 TH/MM3 12.1 TH/MM3 Lymphocytes # (Auto) 0.8 TH/MM3 1.0 TH/MM3 Monocytes # (Auto) 0.4 TH/MM3 0.3 TH/MM3 Eosinophils # (Auto) 0.0 TH/MM3 0.0 TH/MM3 Basophils # (Auto) 0.0 TH/MM3 0.1 TH/MM3 CBC Comment DIFF FINAL AUTO DIFF Differential Comment FINAL DIFF MANUAL Potassium Level 2.6 MEQ/L 3.4 MEQ/L 3.0 MEQ/L 4.3 MEQ/L Procalcitonin 0.61 ng/mL Differential Total Cells Counted 100 Neutrophils % (Manual) 75 % Band Neutrophils % 17 % Lymphocytes % 3 % Monocytes % 3 % Neutrophils # (Manual) 12.7 TH/MM3 Metamyelocytes 1 % Myelocytes 1 % Nucleated Red Blood Cells 2 /100 WBC Toxic Granulation 1+ Dohle Bodies PRESENT Platelet Estimate HIGH Platelet Morphology Comment ENLARGED Polychromasia 4.3 % Blood Urea Nitrogen 27 MG/DL 27 MG/DL Creatinine 0.51 MG/DL 0.40 MG/DL Random Glucose 149 MG/DL 82 MG/DL 112 MG/DL Total Protein 5.4 GM/DL 5.5 GM/DL Albumin 1.3 GM/DL 1.3 GM/DL Calcium Level 7.7 MG/DL 7.7 MG/DL Phosphorus Level 2.2 MG/DL Magnesium Level 2.3 MG/DL Alkaline Phosphatase 1217 U/L 983 U/L Aspartate Amino Transf (AST/SGOT) 42 U/L 50 U/L Alanine Aminotransferase (ALT/SGPT) 32 U/L 29 U/L Total Bilirubin 0.4 MG/DL 0.3 MG/DL Sodium Level 146 MEQ/L 144 MEQ/L Chloride Level 106 MEQ/L 107 MEQ/L Carbon Dioxide Level 31.9 MEQ/L 31.5 MEQ/L Anion Gap 8 MEQ/L 6 MEQ/L Estimat Glomerular Filtration Rate 118 ML/MIN 156 ML/MIN Direct Bilirubin 0.2 MG/DL Indirect Bilirubin 0.1 MG/DL Test 05/10/17 08:03 05/10/17 12:00 05/11/17 04:55 White Blood Count 9.8 TH/MM3 Red Blood Count 2.31 MIL/MM3 Hemoglobin 7.4 GM/DL Hematocrit 22.7 % Mean Corpuscular Volume 98.3 FL Mean Corpuscular Hemoglobin 32.1 PG Mean Corpuscular Hemoglobin Concent 32.6 % Red Cell Distribution Width 16.1 % Platelet Count 417 TH/MM3 Mean Platelet Volume 8.5 FL Neutrophils (%) (Auto) 87.4 % Lymphocytes (%) (Auto) 7.9 % Monocytes (%) (Auto) 3.4 % Eosinophils (%) (Auto) 1.1 % Basophils (%) (Auto) 0.2 % Neutrophils # (Auto) 8.6 TH/MM3 Lymphocytes # (Auto) 0.8 TH/MM3 Monocytes # (Auto) 0.3 TH/MM3 Eosinophils # (Auto) 0.1 TH/MM3 Basophils # (Auto) 0.0 TH/MM3 CBC Comment AUTO DIFF Differential Total Cells Counted 100 Neutrophils % (Manual) 77 % Band Neutrophils % 7 % Lymphocytes % 9 % Monocytes % 4 % Eosinophils % 1 % Neutrophils # (Manual) 8.4 TH/MM3 Myelocytes 2 % Differential Comment FINAL DIFF MANUAL Platelet Estimate NORMAL Platelet Morphology Comment NORMAL Polychromasia 3.3 % Stool C. difficile Toxin (PCR) NEGATIVE Stl C. difficile Toxin Epiderm 027 PRESUMPTIVE NEGATIVE Blood Urea Nitrogen 29 MG/DL Creatinine 0.37 MG/DL Random Glucose 200 MG/DL Total Protein 3.1 GM/DL Albumin 0.7 GM/DL Calcium Level 6.6 MG/DL Alkaline Phosphatase 549 U/L Aspartate Amino Transf (AST/SGOT) 30 U/L Alanine Aminotransferase (ALT/SGPT) 14 U/L Total Bilirubin 0.6 MG/DL Direct Bilirubin 0.2 MG/DL Sodium Level 145 MEQ/L Potassium Level 3.7 MEQ/L Chloride Level 106 MEQ/L Carbon Dioxide Level 35.5 MEQ/L Anion Gap 4 MEQ/L Estimat Glomerular Filtration Rate 171 ML/MIN Protein Corrected Calcium 8.9 MG/DL Indirect Bilirubin 0.4 MG/DL (Rene Reed) Medical Decision Making Impression and Plan Impression: 1. Large left MCA CVA 2. Persistent right hemiplegia 3. Aspiration pneumonia 4. Hypoxic respiratory failure Sodium 145 this morning. Patient opens eyes spontaneously and follows commands but still w/persistent right hemiplegia. Plan: Primary management per Learning Administrator. Frequent neuro checks. Continue ventilatory support. Okay for Lovenox from neurosurgical standpoint. Will follow intermittently while in the hospital. (Rene Reed) Attending Statement I have personally seen and examined the patient on 05/11/17. Pertinent documentation and study results have been reviewed by the undersigned. I have personally developed the treatment plan and performed medical decision making. Agree with findings, exam, and treatment plan as noted above. On my examination today, the patient remains relatively alert. Spontaneous eye opening. Follows commands consistent with left upper and lower extremity. Persistent right hemiparesis Sodium 145 Continue to keep sodium within normal limits. Lovenox for DVT prophylaxis Plan follow-up CT scan head this week to assess for possible late hydrocephalus or hemorrhage, and confirmed continued improvement in mass effect. (Parker López MD) Rene Reed May 11, 2017 11:27 Parker López MD May 11, 2017 20:40
--- NOTE | 2017-05-11 16:09 | HHI.FPPN ---
Subjective Remarks Ms. Larsen had no acute events overnight. She opens her eyes and squeezes my hand today and releases it; however, does not acknowledge understanding of words in [place] or U[place]bek yet. The nurse has attempted CPAP trials for several minutes today and will continue to do so. CBC improved, afebrile, and VS mostly stable with tachycardia in low 100s. (Chuy Camacho MD R1) Objective Vitals Vital Signs Date Time Temp Pulse Resp B/P (MAP) Pulse Ox O2 Delivery O2 Flow Rate FiO2 05/11/17 12:33 100 55 05/11/17 12:00 101 05/11/17 12:00 45 05/11/17 12:00 98.2 107 21 113/57 (75) 100 05/11/17 10:00 91 05/11/17 09:19 45 05/11/17 09:15 45 05/11/17 09:11 99 45 05/11/17 08:00 98.5 89 15 145/63 (90) 97 05/11/17 08:00 45 05/11/17 08:00 89 05/11/17 07:00 96 Mechanical Ventilator 45 05/11/17 06:00 106 05/11/17 04:17 99 45 05/11/17 04:00 45 05/11/17 04:00 97.8 98 15 111/61 (78) 100 05/11/17 04:00 98 05/11/17 02:00 110 05/11/17 01:03 100 45 05/11/17 00:00 45 05/11/17 00:00 80 05/11/17 00:00 98.5 80 14 119/60 (79) 100 05/10/17 22:00 89 05/10/17 20:02 99 55 05/10/17 20:00 55 05/10/17 20:00 97.9 82 20 128/71 (90) 100 05/10/17 20:00 82 05/10/17 19:00 98 Mechanical Ventilator 45 05/10/17 16:02 98 55 05/10/17 16:00 55 05/10/17 16:00 98.1 86 14 116/61 (79) 100 I/O 05/10/17 05/10/17 05/10/17 05/11/17 05/11/17 05/11/17 06:59 14:59 22:59 06:59 14:59 22:59 Intake Total 748 ml 642 ml 232 ml Output Total 275 ml 1000 ml 1145 ml Balance 473 ml -358 ml -913 ml IV Total 246 ml 141 ml 19 ml Tube Feeding 502 ml 501 ml 213 ml Output Urine Total 275 ml 1000 ml 1125 ml Chest Tube Drainage Total 0 ml 20 ml (Chuy Camacho MD R1) Result Diagram: 05/10/17 0803 05/11/17 0455 Imaging Last 24 hours Impressions Chest X-Ray 05/11/17 0000 Signed Impressions: Service Date/Time: Thursday, May 11, 2017 09:37 - CONCLUSION: 1. Small right pleural effusion. 2. Bilateral mid and lower lung zone predominant air space opacity could represent pulmonary edema given the appearance and distribution. Obdulio Sam MD Objective Remarks CONSTITUTIONAL/GEN: Nonverbal, lying in bed. Intubated on ventilator, receiving tube feeds. Patient opens her eyes and grasps my hand, but does not follow command to let go. HEAD: Normocephalic. Atraumatic. LUNGS: Coarse breath sounds bilaterally, upper lung myles > lower lung myles ; on vent at 14 bpm and 45% FiO2 CARDIOVASCULAR: Regular rate and regular rhythm. Lower extremity bilateral pitting edema. GI/ABD: distended and less tense without masses, without organomegaly. Firmness to palpation seemed worse in L upper and lower quadrants NEURO: Intubated; eyes open. Patient does not respond to commands today. : Dark straw-yellow urine draining into moser bag today MUSC: SCDs on bilateral lower extremities. Pedal pulses weak. SKIN: Stage II sacral decubitus ulcer, purple induration of left labia majora, diffusely edematous and weeping in certain places Procedures ORIF 04/21/17 Intubation 04/30/17 (Chyu Camacho MD R1) Urinary Catheter: Yes Moser insert reason: Prolonged Immobilization Date of Insertion: May 02, 2017 (Chuy Camacho MD R1) A/P Assessment and Plan 76 y/o female with HTN, DM, CVA admitted for DKA and hip fracture. Now with massive left MCA stroke, right hemiplegia and midline shift resolving. Neuro and machine molder squeeze consulted. Working with palliative care and family for goals of care. 05/07 CT abdomen/pelvis shows large pneumothorax on left side decompressed with chest tube. -Overall poor prognosis, pursuing goals of care discussion with daughter (HCPOA) , but at this time daughter wishes continued intervention -05/09 - extensive discussion with daughter today indicates no willingness to pursue comfort measures only. Daughter continues to ask for aggressive management of her mother's condition; will continue to engage in this discussion -05/11--CXR w/bilateral pleural effusions vs pulmonary edema--diuresis ordered by intensivists Discharge Planning Pending stroke progression and discussion for goals of care (Chuy Camacho MD R1) Attending Attestation Pt. examined and case discussed with resident physicians. I have read the above note and agree with the assessment and plan as discussed with me. I was involved in all medical decision making for this patient. Fazal Zamora MD (Fazal Zamora MD) Problem List: (1) Acute CVA (cerebrovascular accident) ICD Codes: I63.9 - Cerebral infarction, unspecified Status: Acute Plan: Patient found minimally responsive with neurological deficits around 0820 04/24. Stat CT of head was ordered, which showed large left MCA infarct. Diffuse edema throughout the left MCA distribution, suggest completed infarct. This was discussed and was not a candidate for intracranial intervention. CT (04/30): Reduction in midline shift to 11mm. Unchanged large left MCA infarction. CT head (05/06) shows: Evolving large left-sided MCA territory infarct with minimally improved oibd-rw-tdnyd subfalcine shift. No intercurrent hemorrhage or other acute abnormality. Echocardiogram- The left ventricular systolic function is low normal with an estimated ejection fraction in the range of 50-55%. Mild concentric left ventricular hypertrophy. Normal left ventricular size. Tosdw-qu-giyx mitral valve regurgitation. Carotid Artery US- No hemodynamically significant carotid stenosis -Consulted machine molder squeeze, appreciate recs -Intubated/sedated; does not recommend tracheostomy -IV hydration, watch for hypotension. -Keep systolic to less than 220 -Lactated Ringer's reduced to 75 ml/hr -Poor prognosis -Neurosurgery consulted -Recommended conservative management -Keep Na in 145-154 range -Tube feeds: Glucerna 1.5 mLs for diet via Dobbhoff tube -Director Of Instrumental Music consult for management and recs -Consult palliative care-appreciate recs -Case discussed with daughter in-person about goals of care, limited treatment options, and poor prognosis. -Daughter continues to want aggressive care. Wishes to continue aggressive medical treatment despite prognosis -Neurology consulted-appreciate recs -Rectal ASA -Lovenox 40mg daily (2) Sepsis ICD Codes: A41.9 - Sepsis, unspecified organism Status: Acute Plan: Impression: Pt met SIRS criteria with tachycardia, leukocytosis Leukocytosis resolved today. Cultures: 05/07 Blood cultures and sputum cultures negative to date 04/30 Sputum culture with staph, Serratia 04/29 blood culture with staph -See antibiotics as below -Culture results as below -Monitor vitals (3) HCAP (healthcare-associated pneumonia) ICD Codes: J18.9 - Pneumonia, unspecified organism Status: Acute Plan: Suspect possible HCAP. Persistent leukocytosis. Possible aspiration Chest CT (04/30): Bilateral pulmonary infiltrates more pronounced within lower lobes with b/l pleural effusions. Material in lower lobe bronchi b/l, purulent or mucus plugging 04/30 Sputum culture showing staph aureus and Serratia Marcescens Legionella and strep pneumo urine tests negative CXR 05/02: Increased airspace opacity bilaterally. The pattern may represent pulmonary edema. There is likely a left pleural effusion. CXR 05/08: Stable diffuse consolidation of right warm to much lesser extent left perihilar region consistent with pneumonia or asymmetric pulmonary vascular congestion CXR 05/09: no pneumothorax, but small subcutaneous emphysema in left chest, patchy opacity in right lower lung consistent with pneumonia or pulmonary vascular congestion. Continue antibiotic therapy -Levaquin IV 750 mg (05/04- ) HCAP -Flagyl 500mg q8H (04/29 - ) for aspiration -Repeat blood cultures (05/07) pending , with 1/4 positive; possible contaminant -Sputum cx 05/07 reveals Serratia marascens susceptible to cefepime, erta/imi, genta, tobra, bactrim and levo--continuing levaquin as above -Duonebs treatments q6h Antibiotic History -Discontinued Cefepime 2g IV daily (04/30 - d/c 05/04 ) -Discontinued Vancomycin IV (04/30 - d/c 05/04 ) (4) Yeast UTI ICD Codes: B37.49 - Other urogenital candidiasis Status: Resolved Plan: UA showed glucose, large number of leukocytes esterase, innumerable WBCs , rare bacteria, and few yeast Urine culture shows Lea Glabrata; however, high GGT and Alk Phos require reducing hepatotoxic drugs -D/C Micafungin 100mg IV daily as it is hepatically metabolized -Urine cx 05/09 pending (5) Abdominal distension ICD Codes: R14.0 - Abdominal distension (gaseous) Status: Acute Plan: Impression: Abdominal distension evident on exam 05/05 with serial KUBs neg for etiology. In association with transaminase elevation and Alk P >1k and GGT elevation. s/p large BM 05/07 per nursing staff 05/06 - CT abdomen/pelvis- large left pneumothorax, bilateral lower lobe consolidation and bilateral moderate-sized pleural effusions, significant soft tissue thickening of right lateral chest wall and left gluteus. Mild ascites 05/09 - abdominal distension unchanged; however, LFTs resolving following chest tube -Continue to monitor at this time -Continue to follow LFTs 05/11 - abdominal distention seems to be related to diffuse edema, trial of Lasix 20 mg IV twice a day (6) Type 2 diabetes mellitus ICD Codes: E11.9 - Type 2 diabetes mellitus without complications Status: Chronic Plan: Admitted for DKA which has now resolved. Hemoglobin A1C is 12.9. Diabetes Type I is uncontrolled. -Continue Levemir 10 units BID due to hypoglycemia at higher dose -Medium dose insulin sliding scale with goal blood glucose between 140 and 180 -Glucerna for NG tube feedings -D/C Regular accuchecks (7) Atrial fibrillation ICD Codes: I48.91 - Unspecified atrial fibrillation Status: Acute Plan: Hx of intermittent Afib. Resolved with administration of Lopressor. -Continue to monitor -Lopressor PRN (8) Hip fracture ICD Codes: S72.009A - Fracture of unspecified part of neck of unspecified femur , initial encounter for closed fracture Status: Acute Plan: S/P left hip reduction and intramedullary nail fixation on 04-21-17 -Consult orthopedics-appreciate recs * WBAT * Daily dressing changes -Calcium/Vitamin D -Fluids as above -Tylenol, morphine PRN pain (9) Hypertension ICD Codes: I10 - Essential (primary) hypertension Status: Acute Plan: IV hydration. BPs wnl overnight -Continue fluids as above -Antihypertensives to keep SBP<180 -Lasix or Bumex for diuresis as required (10) Fluid overload ICD Codes: E87.70 - Fluid overload, unspecified Status: Acute Plan: Supervisor Customer Complaint Service noted fluid overload -Lasix IV bid -Metolazone and Bumex d/c'd (11) Pneumothorax ICD Codes: J93.9 - Pneumothorax, unspecified Status: Resolved Plan: Impression: Noticed on 05/06 CT abdomen/pelvis- large left pneumothorax, bilateral lower lobe consolidation and bilateral moderate-sized pleural effusions. S/P chest tube placement 05/07 231 ml output overnight -Continue to monitor output at this time (12) On mechanically assisted ventilation ICD Codes: Z99.11 - Dependence on respirator [ventilator] status Plan: Impression: On mechanical ventilation; 55% FiO2 -Continue; weaning trials as tolerated (13) Elevated LFTs ICD Codes: R79.89 - Other specified abnormal findings of blood chemistry Plan: Impression: Recent LFT elevations over the past week with alkaline phosphatase gradually rising from 351-1931 and AST rising from 50s to 217. Liver/biliary etiology expected as GGT 787. Gallbladder ultrasound obtained by machine molder squeeze 05/08; focally unremarkable in appearance of gallbladder -Incrementally resolving since chest tube placement on 05/06 -Monitor at this time (14) Fluids, Electrolytes, and Nutrition Status: Acute Plan: Fluids: IVF as above Electrolyte: on electrolyte protocol Nutrition: Glucerna tube feeds DVT ppx: SCDs/lovenox 40 mg daily GI ppx: protonix Colace, fleet enema mineral oil (Chuy Camacho MD R1) Problem Qualifiers (1) Sepsis: Qualified Codes: A41.9 - Sepsis, unspecified organism (2) Type 2 diabetes mellitus: Qualified Codes: E11.9 - Type 2 diabetes mellitus without complications (3) Atrial fibrillation: Qualified Codes: I48.0 - Paroxysmal atrial fibrillation (4) Hip fracture: (5) Hypertension: Qualified Codes: I10 - Essential (primary) hypertension (6) Fluid overload: Qualified Codes: E87.79 - Other fluid overload (7) Pneumothorax: Chuy Camacho MD R1 May 11, 2017 16:08 Fazal Zamora MD May 11, 2017 17:39
--- NOTE | 2017-05-11 22:43 | HHI.IDPN ---
Subjective Subjective Remarks ID Xcover delayed entry - pt was seen around 1600 chart rviewed is a 76 y/o CF with PMHx of stroke, diabetes mellitus who was admitted with DKA and a hip fracture for which she underwent ORIF on 04/21. While in hospital recovering, patient developed large left MCA territory ischemic infarct with edema. On 05/01/17 patient was intubated for severe hypoxemic respiratory failure from aspiration pneumonia. She greqw out repeated ly MSSA, Serratia from sputum No fevers No rash No diarrhea Remains on vent. Opens eyes. Does not track or follow commands UO ok. Right side hemiplegia. Moves LUE and LLE. Moves her neck. Large volume liquid diarrhea, c.diff nega 2/2 Antibiotics Levaquin Flagyl. Lines Line sites with no e.o infection. Past Medical History reviewed Allergies: Coded Allergies: No Known Allergies (Unverified , 04/20/17) Objective . Vital Signs Date Time Temp Pulse Resp B/P (MAP) Pulse Ox O2 Delivery O2 Flow Rate FiO2 05/11/17 20:23 100 40 05/11/17 18:00 79 05/11/17 16:03 100 45 05/11/17 16:00 81 05/11/17 16:00 98.3 81 21 118/58 (78) 100 05/11/17 16:00 45 05/11/17 14:00 107 05/11/17 12:33 100 55 05/11/17 12:00 101 05/11/17 12:00 45 05/11/17 12:00 98.2 107 21 113/57 (75) 100 05/11/17 10:00 91 05/11/17 09:19 45 05/11/17 09:15 45 05/11/17 09:11 99 45 05/11/17 08:00 98.5 89 15 145/63 (90) 97 05/11/17 08:00 45 05/11/17 08:00 89 05/11/17 07:00 96 Mechanical Ventilator 45 05/11/17 06:00 106 05/11/17 04:17 99 45 05/11/17 04:00 45 05/11/17 04:00 97.8 98 15 111/61 (78) 100 05/11/17 04:00 98 05/11/17 02:00 110 05/11/17 01:03 100 45 05/11/17 00:00 45 05/11/17 00:00 80 05/11/17 00:00 98.5 80 14 119/60 (79) 100 05/11/17 05/11/17 05/12/17 15:00 23:00 07:00 Intake Total 620 ml Output Total 2450 ml Balance -1830 ml Tube Feeding 500 ml Other 120 ml Output Urine Total 2000 ml Stool Total 400 ml Chest Tube Drainage Total 50 ml . Laboratory Tests Test 05/10/17 08:03 White Blood Count 9.8 TH/MM3 Red Blood Count 2.31 MIL/MM3 Hemoglobin 7.4 GM/DL Hematocrit 22.7 % Mean Corpuscular Volume 98.3 FL Mean Corpuscular Hemoglobin 32.1 PG Mean Corpuscular Hemoglobin Concent 32.6 % Red Cell Distribution Width 16.1 % Platelet Count 417 TH/MM3 Mean Platelet Volume 8.5 FL Neutrophils (%) (Auto) 87.4 % Lymphocytes (%) (Auto) 7.9 % Monocytes (%) (Auto) 3.4 % Eosinophils (%) (Auto) 1.1 % Basophils (%) (Auto) 0.2 % Neutrophils # (Auto) 8.6 TH/MM3 Lymphocytes # (Auto) 0.8 TH/MM3 Monocytes # (Auto) 0.3 TH/MM3 Eosinophils # (Auto) 0.1 TH/MM3 Basophils # (Auto) 0.0 TH/MM3 CBC Comment AUTO DIFF Differential Total Cells Counted 100 Neutrophils % (Manual) 77 % Band Neutrophils % 7 % Lymphocytes % 9 % Monocytes % 4 % Eosinophils % 1 % Neutrophils # (Manual) 8.4 TH/MM3 Myelocytes 2 % Differential Comment FINAL DIFF MANUAL Platelet Estimate NORMAL Platelet Morphology Comment NORMAL Polychromasia 3.3 % Laboratory Tests Test 05/10/17 04:26 05/11/17 04:55 Blood Urea Nitrogen 27 MG/DL 29 MG/DL Creatinine 0.40 MG/DL 0.37 MG/DL Random Glucose 112 MG/DL 200 MG/DL Total Protein 5.5 GM/DL 3.1 GM/DL Albumin 1.3 GM/DL 0.7 GM/DL Calcium Level 7.7 MG/DL 6.6 MG/DL Alkaline Phosphatase 983 U/L 549 U/L Aspartate Amino Transf (AST/SGOT) 50 U/L 30 U/L Alanine Aminotransferase (ALT/SGPT) 29 U/L 14 U/L Total Bilirubin 0.3 MG/DL 0.6 MG/DL Direct Bilirubin 0.2 MG/DL 0.2 MG/DL Sodium Level 144 MEQ/L 145 MEQ/L Potassium Level 4.3 MEQ/L 3.7 MEQ/L Chloride Level 107 MEQ/L 106 MEQ/L Carbon Dioxide Level 31.5 MEQ/L 35.5 MEQ/L Anion Gap 6 MEQ/L 4 MEQ/L Estimat Glomerular Filtration Rate 156 ML/MIN 171 ML/MIN Indirect Bilirubin 0.1 MG/DL 0.4 MG/DL Protein Corrected Calcium 8.9 MG/DL Imaging Last Impressions Chest X-Ray 05/11/17 0000 Signed Impressions: Service Date/Time: Thursday, May 11, 2017 09:37 - CONCLUSION: 1. Small right pleural effusion. 2. Bilateral mid and lower lung zone predominant air space opacity could represent pulmonary edema given the appearance and distribution. Obdulio Sam MD Abdomen X-Ray 05/10/17 0000 Signed Impressions: Service Date/Time: Wednesday, May 10, 2017 22:08 - CONCLUSION: Tip of Dobbhoff catheter is in the antrum of the stomach. Sage Adler MD Gall Bladder Ultrasound 05/08/17 0000 Signed Impressions: Service Date/Time: May 08:23 - CONCLUSION: Focally unremarkable appearance of the gallbladder Obdulio Chun MD Abdomen/Pelvis CT 05/07/17 0000 Signed Impressions: Service Date/Time: Sunday, May 07, 2017 13:23 - CONCLUSION: 1. Large left pneumothorax. 2. Bilateral lower lobe consolidation and bilateral moderate size pleural effusions. 3. Significant soft tissue thickening of the right lateral chest wall and left gluteus muscle. 4. Mild ascites. The findings were called to Dr. Carney. Deangelo Zamora MD Head CT 05/06/17 0000 Signed Impressions: Service Date/Time: Saturday, May 06, 2017 04:18 - CONCLUSION: 1. Evolving large left-sided MCA territory infarct with minimally improved [id number] subfalcine shift. 2. No intercurrent hemorrhage or other acute abnormality. Alejo De La Vega MD Hip and Pelvis X-Ray 05/05/17 0000 Signed Impressions: Service Date/Time: Friday, May 05, 2017 10:59 - CONCLUSION: Left proximal femur trochanteric/subtrochanteric fracture lucency visualized. Postoperative changes. Choco Mustafa MD Chest CT 04/30/17 0000 Signed Impressions: Service Date/Time: Sunday, April 30, 2017 09:20 - CONCLUSION: 1. Bilateral pulmonary infiltrates more pronounced within the lower lobes with tiny bilateral pleural effusions. Material seen filling the lower lobe bronchi bilaterally either related to purulent material or perhaps mucus plugging. Deangelo Wren Jr., MD Carotid Artery Ultrasound 04/24/17 0000 Signed Impressions: Service Date/Time: April 09:45 - CONCLUSION: 1. No hemodynamically significant carotid artery stenosis. Arnie Middleton MD Hip X-Ray 04/21/17 0000 Signed Impressions: Service Date/Time: Friday, April 21, 2017 11:36 - CONCLUSION: Fluoroscopic images during placement of intramedullary siomara left femur. Benja Ramsey MD Physical Exam GENERAL: Obese, well-developed patient, in no apparent distress. SKIN: No rashes, ecchymoses or lesions. Cool and dry. HEAD: Atraumatic. Normocephalic. No temporal or scalp tenderness. EYES: Pupils equal round and reactive. Extraocular motions intact. No scleral icterus. No injection or drainage. ENT: Nose without bleeding, purulent drainage or septal hematoma. Throat without erythema, tonsillar hypertrophy or exudate. Uvula midline. Airway patent. NECK: Trachea midline. Supple, nontender, no meningeal signs. CARDIOVASCULAR: Regular rate and rhythm without murmurs, gallops, or rubs. RESPIRATORY: Clear to auscultation. Breath sounds equal bilaterally. GASTROINTESTINAL: Abdomen soft, distended. No tenderness in RUQ noted or any quadrants noted. Incontinent of large amount of liquid stool in dignishield bag MUSCULOSKELETAL: Pedal edema. Generalized anasarca. NEUROLOGICAL: Right hemiplegia. Psych: could not be assessed. IV line sites with no e.o infection. Assessment & Plan Remarks Sepsis MSSA and Serratia aspiration pneumonia. C.glabrata Cath associated UTI. Left pneumothorax plan on pigtail cath today. Abnormal LFTs: Cholecystitis, Micafungin IV, flagyl Left MCA infarction Abx associated diarrhea, c.diff negative Recs: Continue Levaquin Continue oral flagyl for now. fu WBC, fu clincially Kayleigh Dash MD May 11, 2017 22:43
[2017-05-12] VITALS (19 sets, daily range): BP systolic 109–157; BP diastolic 58–72; PULSE 76–95; RESP 14–16; TEMP 97.4–97.9; O2SAT 100
[2017-05-12] MEDS: RESP: ALBUTEROL 2.5 MG/IPRATROPIUM 0.5 MG NEB (SCH) NEB ×3 (04:11→15:53)
[2017-05-12] MEDS: metroNIDAZOLE 500 MG TAB DOBHOFF SCH ×3 (06:00→21:17)
[2017-05-12 07:04] LABS: BICARBONATE 31.8 MEQ/L (21.0-32.0); CALCIUM 7.1 MG/DL (8.5-10.1); CREATININE 0.41 MG/DL (0.50-1.00)
[2017-05-12 07:35] LABS: CALCIUM-PROTEIN CORRECTED 8.5 MG/DL (8.5-10.1); TOTAL PROTEIN 4.6 GM/DL (6.4-8.2)
[2017-05-12] MEDS: INSULIN ASPART SUPPLEMENTAL SCALE SQ SCH ×4 (08:51→21:00)
[2017-05-12] MEDS: INSULIN DETEMIR 100 UNITS/ML VIAL SQ SCH ×2 (08:52→21:18)
[2017-05-12] MEDS: LANSOPRAZOLE SOLUTAB 30 MG TAB NG SCH (08:53)
[2017-05-12] MEDS: LEVOFLOXACIN 750 MG PREMIX INJ 150 ML IV SCH (08:53)
[2017-05-12] MEDS: ASPIRIN 325 MG TAB DOBHOFF SCH (08:53)
[2017-05-12] MEDS: ENOXAPARIN SODIUM 40 MG/0.4 ML SYRINGE SQ SCH (08:53)
[2017-05-12] MEDS: CALCIUM/VITAMIN D 250 MG/125 U TAB PO SCH ×3 (08:53→17:51)
[2017-05-12] MEDS: CHOLECALCIFEROL (VIT D3) 5000 UNIT CAP PO SCH (08:53)
[2017-05-12] MEDS: POLYETHYLENE GLYCOL 17 GM PKG OG-TUBE SCH ×2 (08:54→19:36)
[2017-05-12] MEDS: SODIUM CHLORIDE 0.9% FLUSH 5 ML FLUSH IV FLUSH SCH ×2 (08:54→21:20)
[2017-05-12] MEDS: LACTULOSE SYRUP 20 GM/30 ML CUP PO SCH ×4 (08:54→19:36)
[2017-05-12] MEDS: SENNOSIDES SYRUP 8.8 MG/5 ML CUP OG-TUBE SCH ×2 (08:54→19:36)
[2017-05-12] MEDS: DOCUSATE SODIUM 100 MG/10 ML UDC PO SCH ×2 (08:54→19:36)
[2017-05-12] MEDS: FUROSEMIDE 40 MG/4 ML VIAL IV PUSH SCH ×2 (09:26→17:51)
--- NOTE | 2017-05-12 11:49 | HHI.CCPN ---
Subjective Remarks/Hospital Course 04/24: 76-year-old female with a medical history significant for prior stroke, diabetes mellitus who was admitted with DKA and a hip fracture for which she underwent ORIF on 04/21. Patient developed altered mental status and was last noted to be okay around 5:30 AM. Subsequently there was a change in her mental status and she was noted to not be moving her right side for which stroke alert was called. Head CT showed large left MCA territory ischemic infarct with edema. Patient was transferred to the ICU by family medicine service in the critical care consult was requested. I evaluated the patient following arrival to the ICU. At that time she was laying in bed with her eyes open however not following commands and had a dense right hemiplegia. Patient was also evaluated by Dr. Malave from neurology. I further discussed current event with patient's daughter following her arrival to the ICU. Per the daughter patient has been living with her since her stroke in 2014 and does ambulate however has been having problems with memory and incontinence as well as gait difficulties. She does not feel patient would want intubation or tracheostomy or PEG tube. 04/25: Patient remains encephalopathic, awake though not following commands consistently. Dense right hemiplegia persists. Appears to be awake enough to protect airway currently. Patient's daughter rescinded DNR and made a full code last evening. 04/26: Remains encephalopathic, not following commands. On Dobbhoff for tube feeds at 30 cc per hour. Had urinary retention and drained 2 L of urine after placing Leavitt catheter today. CT head done this morning with large left MCA territory infarct with left to right midline shift and significant cerebral edema. Hyperglycemia noted. Patient given mannitol earlier for increasing cerebral edema. 04/27: Remains encephalopathic, not following commands. On Dobbhoff tube feeds at 30 cc per hour. When into A. fib with RVR last night which responded with Lopressor 5 mg IV 1 dose. 04/28: Remains encephalopathic, arousable, not following commands. Moves left upper extremity spontaneously. Tolerating Dobbhoff tube feeds. Remains on nasal cannula. 04/29: Encephalopathic, eyes be arousable, moves left upper extremity spontaneously and occasionally opens eyes. Dense right hemiplegia and aphasia persists. On nasal cannula. Dobbhoff tube feeds being advanced. Patient was transfused 1 unit PRBCs yesterday. Urine culture with yeast from yesterday for which fluconazole being started. Had brief run of A. fib with RVR which improved with Lopressor IV, currently in sinus rhythm. 04/30: Worsening hypoxemic respiratory failure, currently on partial nonrebreather. Remains lethargic. WBC count increased from 14.6 today 20.7. Chest x-ray shows bilateral worsening infiltrates and small pleural effusions. Sodium 154, weight up by 8 KG. Albumin 1 mg Bumex 1. Also one dose of albumin. Remains in sinus tachycardia. Tmax 101.3 05/01: Patient was intubated yesterday for lack of airway protection, and severe hypoxemic respiratory failure from aspiration pneumonia involving multiple lobes. Patient is on the vent lethargic, no spontaneous eye opening. Chest x- ray remains unchanged. Remains intermittently febrile Tmax 101.3. WBC count improving 05/02: Remains critically ill with no improvement in mental status. Spiking fever of 101.7. Blood culture and sputum culture with staph aureus sputum also growing GNR, WBC count 22,000 now indicating worsening sepsis. Daughter still requesting aggressive care. Palliative care is following 05/03: S/P large area dominant hemisphere CVA. No neurological improvement. Now with pneumonia (infiltrate, fever, leukocytosis) and appropriate abx coverage. She will have a hard time surviving the hip fx, CVA, and pneumonia. Palliative Care needs to be a mainstay of our plan. 05/04: No improvement in neuro status. Sputum C&S allows us to narrow abx coverage to levaquin alone. Lungs remain quite congested. Enteral nutrition tolerated. 05/05: No improvement in neuro status. Moves left arm spontaneously. Flaccid right side. Unresponsive. Persistent mild hypoglycemia - will cut Levemir 50%. Abdomen more distended, check KUB. 05/06: CT head with massive left MCA infarction and > 1 cm shift in right handed woman. She opens eyes, does not track. 05/07: Patient open eyes. Attempts to respond. Russian speaking. Tolerating tube feeds. Positive bowel movement. Volume overloaded. Subjective 05/08: Tmax 99.4. Potassium being replaced. Ultrasound gallbladder currently pending. Transaminases are trending downward. Gently diurese. 05/09: Alk phos decreasing. Remains with good urine output. Neurological status not improving. 05/10: Fixed neuro deficit unchanged. Profound CVA. 05/11: Appears to track with eyes today. No improvement in motor function. Remains very edematous, diuretics doubled. 05/12: Continued thick secretions. Afebrile, leukocytosis resolved. Objective Vital Signs Date Time Temp Pulse Resp B/P (MAP) Pulse Ox O2 Delivery O2 Flow Rate FiO2 05/12/17 11:35 100 40 05/12/17 10:00 80 05/12/17 08:00 97.6 14 141/65 (90) 05/12/17 07:00 Mechanical Ventilator Intake and Output 05/12/17 05/12/17 05/13/17 08:00 16:00 00:00 Intake Total 602 ml Output Total 2725 ml Balance -2123 ml Result Diagram: 05/10/17 0805/12/17399 Imaging Last Impressions Chest X-Ray 05/07/17399 Signed Impressions: Service Date/Time: Sunday, May 07, 2017 04:38 - CONCLUSION: 1. Stable Low-lying ETT with tip approximately 1 cm above the valerie. 2. Mild interval progression of bilateral airspace consolidation exaggerated by patient rotation. 3. Increased small left pleural effusion. Alejo De La Vega MD Abdomen/Pelvis CT 05/07/17 0000 Signed Impressions: Service Date/Time: Sunday, May 07, 2017 13:23 - CONCLUSION: 1. Large left pneumothorax. 2. Bilateral lower lobe consolidation and bilateral moderate size pleural effusions. 3. Significant soft tissue thickening of the right lateral chest wall and left gluteus muscle. 4. Mild ascites. The findings were called to Dr. Carney. Deangelo Zamora MD Head CT 05/06/17 0000 Signed Impressions: Service Date/Time: Saturday, May 06, 2017 04:18 - CONCLUSION: 1. Evolving large left-sided MCA territory infarct with minimally improved [id number] subfalcine shift. 2. No intercurrent hemorrhage or other acute abnormality. Alejo De La Vega MD Abdomen X-Ray 05/06/17 0000 Signed Impressions: Service Date/Time: Saturday, May 06, 2017 17:42 - CONCLUSION: Dobbhoff feeding tube tip near the gastroduodenal junction. Obdulio Simms MD Hip and Pelvis X-Ray 05/05/17 0000 Signed Impressions: Service Date/Time: Friday, May 05, 2017 10:59 - CONCLUSION: Left proximal femur trochanteric/subtrochanteric fracture lucency visualized. Postoperative changes. Choco Mustafa MD Chest CT 04/30/17 0000 Signed Impressions: Service Date/Time: Sunday, April 30, 2017 09:20 - CONCLUSION: 1. Bilateral pulmonary infiltrates more pronounced within the lower lobes with tiny bilateral pleural effusions. Material seen filling the lower lobe bronchi bilaterally either related to purulent material or perhaps mucus plugging. Deangelo Wren Jr., MD Carotid Artery Ultrasound 04/24/17 0000 Signed Impressions: Service Date/Time: April 09:45 - CONCLUSION: 1. No hemodynamically significant carotid artery stenosis. Arnie Middleton MD Hip X-Ray 04/21/17 0000 Signed Impressions: Service Date/Time: Friday, April 21, 2017 11:36 - CONCLUSION: Fluoroscopic images during placement of intramedullary siomara left femur. Benja Ramsey MD Objective Remarks Gen: 76-year-old female HEENT: Pallor present. Moderate dark ET tube secretions Neck: Orally intubated. Chest/pulmonary: Scattered rhonchi. Chest tube #10 Citizen [place] left-sided off suction. Cardiovascular: RRR. S1, S2 no S4 without murmur, rub GI/abdomen: Distended. Nontender. Active bowel sounds are present. Extremities: Warm bilaterally, anasarca 2+ upper and 2+ lower extremity edema. Incision sites over left hip, thigh ORIF site clean dry and intact. No fluctuation or induration Neuro: Intubated on no sedation. Spontaneous eye opening, stares to left, does appear to track. Dense right hemiplegia noted. Localizes with left upper extremity, Withdraws LLE. No change. Pupils 2 mm, react. Date of Insertion: May 02, 2017 A/P Assessment and Plan Neuro/Psych: Left MCA CVA - 12 mm of caja-qy-ygtib subfalcine herniation - right-sided hemiplegia Acute encephalopathy History CVA Follow neuro status closely. Continue Aspirin 325 mg by mouth daily Patient was not a candidate for thrombolysis per discussion with neurology and radiology. Repeat head CT 05/05 showed slight improvement in the midline shift and mass effect Neurosurgery consulted 04/30- Dr. López, recommended conservative management Neurology following - Dr. Malave On morphine 1-2 every 3 hours when necessary pain Cardiovascular: Hypertension IV fluids currently on hold due to edema As needed Antihypertensives to keep systolic blood pressure less than to 180 mmHg Echocardiogram 04/24 - EF 50 to 55%. Mild concentric LVH. Pulmonary: Acute hypoxic respiratory failure - aspiration possible HCAP Large left pneumothorax status post #10 Citizen [place] chest tube 05/07 PRVC 14/400/1/ Ventilator bundle Ipratropium/albuterol aerosols every 6 hours with albuterol aerosols every 2 hours. Dyspnea Intubated on 04/30/17 for worsening hypoxemic respiratory failure, aspiration pneumonia Chest x-ray shows 05/08 revealed increasing infiltrate/small pleural effusion left side. Right-sided chest tube in place. CT of the chest 04/30/17 showed severe bibasilar consolidation, and evidence of aspiration GI/liver: Elevated transaminases Hypoalbuminemia Moderate to severe protein calorie malnutrition Dobbhoff for tube feedings and medications. Continue tube feeding with Glucerna 1.5 goal 45 cc an hour On hold 05/08 due to possible cholecystostomy tube placement depending on ultrasound gallbladder Lansoprazole 30 mg daily for GI regimen Docusate sodium 100 twice a day, Senokot 8.6 twice a day, polyethylene glycol 17 grams twice a day and lactulose 30 cc 4 times a day Evaluate CT abdomen/pelvis 05/07 - mild ascites. Large left hemothorax. Right greater than left pleural effusion. Avoid hepatotoxic drugs LFTs improving Endocrine: Diabetes mellitus Detemir 5 units subcutaneous every 12 hours. Currently hold while nothing by mouth Sliding scale insulin Accu-Cheks to maintain euglycemia/low regimen Holding glimepiride 4 mill grams by mouth daily /Renal/FEN: Hypopotassemia Strict intake output, monitor and replete electrolytes, follow BUN/creatinine. Leavitt catheter placed for urinary retention on 04/26. Heme: Chronic Rivaroxaban use Leukocytosis Normocytic anemia Thrombocytosis Follow CBC and coags. On subcutaneous enoxaparin Hemoglobin currently stable. No indications for transfusion of blood proximally at this time ID: MSSA bacteremia Serratia/staph aureus pneumonia C glabrata UTI Pertinent cultures Urine culture 04/26/17 sofie glabrata Blood culture 04/29/17 1 out of 4 bottles staph aureus Sputum culture 04/30/17 staph aureus and Serratia. Blood cultures 2, sputum 1 and urine 05/08 pending -> Serratia On iv levaquin, oral flagyl MSK: Left Intertroch Hip Fx s/p IMN - POD 14 Vitamin D deficiency WBAT DC ginger today redress with Xeroform/Primapore Prophylaxis: SCDs. Enoxaparin 40 mg sq daily-cleared by Dr. Ananda SANDS - lansoprazole Overall impression: Devastating CVA. No improvement. Family coming to discuss hopefully soon. Charles Pedraza MD May 12, 2017 11:49
--- NOTE | 2017-05-12 11:50 | HHI.FPPN ---
Subjective Remarks No acute events overnight. Afebrile vital signs stable overnight. Patient remains on ventilator with CPAP trials. Weaning off oxygen. Per nurse report, right side remained flaccid. Sacral ulcer appears stable. However, she does seem to be leaking around the rectal tube. Chest tube to water seal for a few days with no output. Tube feeds stable. Protein is low. Per nurse report, daughter called this morning. Her power is out, but she will try to come when she can. (Jose R Bennett MD R2) Objective Vitals Vital Signs Date Time Temp Pulse Resp B/P (MAP) Pulse Ox O2 Delivery O2 Flow Rate FiO2 05/12/17 11:35 100 40 05/12/17 10:05 40 05/12/17 10:00 80 05/12/17 08:30 40 05/12/17 08:29 100 40 05/12/17 08:00 97.6 78 14 141/65 (90) 100 05/12/17 08:00 78 05/12/17 08:00 45 05/12/17 07:00 100 Mechanical Ventilator 45 05/12/17 06:00 84 05/12/17 04:15 100 40 05/12/17 04:00 97.4 79 14 151/72 (98) 100 05/12/17 04:00 79 05/12/17 04:00 45 05/12/17 02:00 76 05/12/17 00:04 100 40 05/12/17 00:00 79 05/12/17 00:00 97.8 79 14 135/63 (87) 100 05/12/17 00:00 45 05/11/17 22:00 90 05/11/17 20:23 100 40 05/11/17 20:00 80 05/11/17 20:00 97.7 80 16 112/59 (76) 100 05/11/17 20:00 45 05/11/17 19:00 100 Mechanical Ventilator 45 05/11/17 18:00 79 05/11/17 16:03 100 45 05/11/17 16:00 81 05/11/17 16:00 98.3 81 21 118/58 (78) 100 05/11/17 16:00 45 05/11/17 14:00 107 05/11/17 12:33 100 55 05/11/17 12:00 101 05/11/17 12:00 45 05/11/17 12:00 98.2 107 21 113/57 (71) 100 I/O 05/11/17 05/11/17 05/11/17 05/12/17 05/12/17 05/12/17 07:00 15:00 23:00 07:00 15:00 23:00 Intake Total 232 ml 620 ml 602 ml Output Total 1145 ml 2450 ml 2725 ml Balance -913 ml -1830 ml -2123 ml IV Total 19 ml 63 ml Tube Feeding 213 ml 500 ml 539 ml Other 120 ml Output Urine Total 1125 ml 2000 ml 2175 ml Stool Total 400 ml 550 ml Chest Tube Drainage Total 20 ml 50 ml 0 ml (Jose R Bennett MD R2) Result Diagram: 05/10/17 0803 05/12/17 0400 Imaging Last Impressions Chest X-Ray 05/11/17 0000 Signed Impressions: Service Date/Time: Thursday, May 11, 2017 09:37 - CONCLUSION: 1. Small right pleural effusion. 2. Bilateral mid and lower lung zone predominant air space opacity could represent pulmonary edema given the appearance and distribution. Obdulio Sam MD Abdomen X-Ray 05/10/17 0000 Signed Impressions: Service Date/Time: Wednesday, May 10, 2017 22:08 - CONCLUSION: Tip of Dobbhoff catheter is in the antrum of the stomach. Sage Adler MD Gall Bladder Ultrasound 05/08/17 0000 Signed Impressions: Service Date/Time: May 08:23 - CONCLUSION: Focally unremarkable appearance of the gallbladder Obdulio Chun MD Abdomen/Pelvis CT 05/07/17 0000 Signed Impressions: Service Date/Time: Sunday, May 07, 2017 13:23 - CONCLUSION: 1. Large left pneumothorax. 2. Bilateral lower lobe consolidation and bilateral moderate size pleural effusions. 3. Significant soft tissue thickening of the right lateral chest wall and left gluteus muscle. 4. Mild ascites. The findings were called to Dr. Carney. Deangelo Zamora MD Head CT 05/06/17 0000 Signed Impressions: Service Date/Time: Saturday, May 06, 2017 04:18 - CONCLUSION: 1. Evolving large left-sided MCA territory infarct with minimally improved ebav-td-cizag subfalcine shift. 2. No intercurrent hemorrhage or other acute abnormality. Alejo De La Vega MD Hip and Pelvis X-Ray 05/05/17 0000 Signed Impressions: Service Date/Time: Friday, May 05, 2017 10:59 - CONCLUSION: Left proximal femur trochanteric/subtrochanteric fracture lucency visualized. Postoperative changes. Choco Mustafa MD Chest CT 04/30/17 0000 Signed Impressions: Service Date/Time: Sunday, April 30, 2017 09:20 - CONCLUSION: 1. Bilateral pulmonary infiltrates more pronounced within the lower lobes with tiny bilateral pleural effusions. Material seen filling the lower lobe bronchi bilaterally either related to purulent material or perhaps mucus plugging. Deangelo Wren Jr., MD Carotid Artery Ultrasound 04/24/17 0000 Signed Impressions: Service Date/Time: April 09:45 - CONCLUSION: 1. No hemodynamically significant carotid artery stenosis. Arnie Middleton MD Hip X-Ray 04/21/17 0000 Signed Impressions: Service Date/Time: Friday, April 21, 2017 11:36 - CONCLUSION: Fluoroscopic images during placement of intramedullary siomara left femur. Benja Ramsey MD Objective Remarks CONSTITUTIONAL/GEN: Nonverbal, lying in bed. Intubated on CPAP trial, receiving tube feeds. Patient's eyes remain closed despite sternal rub; she grasps my hand, and does seem follow command to let go, but this may be a coincidence. HEAD: Normocephalic. Atraumatic. G-tube and endotracheal tube in place. LUNGS: Coarse breath sounds bilaterally but moving air well; on CPAP at 19-20 bpm and 40% FiO2, tidal volume 362 for 15, 8 of PEEP, 12 of pressure support. Patient has been on CPAP for about an hour. CARDIOVASCULAR: Regular rate and regular rhythm. Lower extremity bilateral pitting edema. Right hand still puffy and weeping with pitting edema. Left arm much improved today without any pitting edema. CHEST: Pigtail chest tube in place on the left to waterseal. No recent output. GI/ABD: less distended and less tense with much less edema, without masses, without organomegaly. NEURO: Intubated; eyes closed. Patient may be following commands today. Patient has flaccid paralysis on the right side. Moves left side spontaneously. : Dark yellow urine draining into moser bag MUSC: SCDs on bilateral lower extremities. Pedal pulses weak. SKIN: Erythematous sacral wound Procedures ORIF 04/21/17 Intubation 04/30/17 (Jose R Bennett MD R2) Date of Insertion: May 02, 2017 (Jose R Bennett MD R2) A/P Assessment and Plan 76 y/o female with HTN, DM, CVA admitted for DKA and hip fracture. Now with massive left MCA stroke, right hemiplegia and midline shift resolving. Neuro and regulator mechanic consulted. Working with palliative care and family for goals of care. 05/07 CT abdomen/pelvis shows large pneumothorax on left side decompressed with chest tube. Plan to pull chest tube today on 05/12. -Overall poor prognosis, pursuing goals of care discussion with daughter (HCPOA) , but at this time daughter wishes continued intervention -05/09 - extensive discussion with daughter today indicates no willingness to pursue comfort measures only. Daughter continues to ask for aggressive management of her mother's condition; will continue to engage in this discussion -05/11--CXR w/bilateral pleural effusions vs pulmonary edema--diuresis ordered Discharge Planning Pending stroke progression and discussion for goals of care (Jose R Bennett MD R2) Attending Attestation Pt. examined and case discussed with resident physicians. I have read the above note and agree with the assessment and plan as discussed with me. I was involved in all medical decision making for this patient. Fazal Zamora MD (Fazal Zamora MD) Problem List: (1) Acute CVA (cerebrovascular accident) ICD Codes: I63.9 - Cerebral infarction, unspecified Status: Acute Plan: Patient found minimally responsive with neurological deficits around 0820 04/24. Stat CT of head was ordered, which showed large left MCA infarct. Diffuse edema throughout the left MCA distribution, suggest completed infarct. This was discussed and was not a candidate for intracranial intervention. CT (04/30): Reduction in midline shift to 11mm. Unchanged large left MCA infarction. CT head (05/06) shows: Evolving large left-sided MCA territory infarct with minimally improved yrps-hp-svfsf subfalcine shift. No intercurrent hemorrhage or other acute abnormality. Echocardiogram- The left ventricular systolic function is low normal with an estimated ejection fraction in the range of 50-55%. Mild concentric left ventricular hypertrophy. Normal left ventricular size. Thiee-oz-okcp mitral valve regurgitation. Carotid Artery US- No hemodynamically significant carotid stenosis -Consulted regulator mechanic, appreciate recs -Intubated/sedated; does not recommend tracheostomy -IV hydration, watch for hypotension. -Keep systolic to less than 220 -Lactated Ringer's reduced to 75 ml/hr -Poor prognosis -Neurosurgery consulted -Recommended conservative management -Keep Na in 145-154 range -Tube feeds: Glucerna 1.5 mLs for diet via Dobbhoff tube -Senior Information Developer consult for management and recs -Added beneprotein to G-tube -Consult palliative care-appreciate recs -Case discussed with daughter in-person about goals of care, limited treatment options, and poor prognosis. -Daughter continues to want aggressive care. Wishes to continue aggressive medical treatment despite prognosis -Neurology consulted-appreciate recs -Rectal ASA -Lovenox 40mg daily (2) Sepsis ICD Codes: A41.9 - Sepsis, unspecified organism Status: Acute Plan: Impression: Pt met SIRS criteria with tachycardia, leukocytosis Leukocytosis resolved today. Cultures: 05/07 Blood cultures and sputum cultures negative to date 04/30 Sputum culture with staph, Serratia 04/29 blood culture with staph -See antibiotics as below -Culture results as below -Monitor vitals (3) HCAP (healthcare-associated pneumonia) ICD Codes: J18.9 - Pneumonia, unspecified organism Status: Acute Plan: Suspect possible HCAP. Persistent leukocytosis. Possible aspiration Chest CT (04/30): Bilateral pulmonary infiltrates more pronounced within lower lobes with b/l pleural effusions. Material in lower lobe bronchi b/l, purulent or mucus plugging 04/30 Sputum culture showing staph aureus and Serratia Marcescens Legionella and strep pneumo urine tests negative CXR 05/02: Increased airspace opacity bilaterally. The pattern may represent pulmonary edema. There is likely a left pleural effusion. CXR 05/08: Stable diffuse consolidation of right warm to much lesser extent left perihilar region consistent with pneumonia or asymmetric pulmonary vascular congestion CXR 05/09: no pneumothorax, but small subcutaneous emphysema in left chest, patchy opacity in right lower lung consistent with pneumonia or pulmonary vascular congestion. Continue antibiotic therapy -Levaquin IV 750 mg (05/04- ) HCAP -Flagyl 500mg q8H (04/29 - ) for aspiration -Repeat blood cultures (05/07) pending , with / positive; possible contaminant -Sputum cx 05/07 reveals Serratia marascens susceptible to cefepime, erta/imi, genta, tobra, bactrim and levo--continuing levaquin as above -Duonebs treatments q6h Antibiotic History -Discontinued Cefepime 2g IV daily (04/30 - d/c 05/04 ) -Discontinued Vancomycin IV (04/30 - d/c 05/04 ) (4) Yeast UTI ICD Codes: B37.49 - Other urogenital candidiasis Status: Resolved Plan: UA showed glucose, large number of leukocytes esterase, innumerable WBCs , rare bacteria, and few yeast Urine culture shows Lea Glabrata; however, high GGT and Alk Phos require reducing hepatotoxic drugs -D/C Micafungin 100mg IV daily as it is hepatically metabolized -Urine cx 05/09 pending (5) Abdominal distension ICD Codes: R14.0 - Abdominal distension (gaseous) Status: Acute Plan: Impression: Abdominal distension much improved today; first noted on exam 05/05 with serial KUBs neg for etiology. In association with transaminase elevation and Alk P >1k and GGT elevation. s/p large BM 05/07 per nursing staff 05/06 - CT abdomen/pelvis- large left pneumothorax, bilateral lower lobe consolidation and bilateral moderate-sized pleural effusions, significant soft tissue thickening of right lateral chest wall and left gluteus. Mild ascites 05/09 - abdominal distension unchanged; however, LFTs resolving following chest tube -Continue to monitor at this time -Continue to follow LFTs 05/11 - abdominal distention seems to be related to diffuse edema, trial of Lasix 20 mg IV twice a day, which was increased to 40 mg IV twice a day 05/12 - much less abdominal distention today. Significant improvement with significant net diuresis of almost 4 L. (6) Fluid overload ICD Codes: E87.70 - Fluid overload, unspecified Status: Acute Plan: Sugar Cane Grower noted fluid overload -Lasix IV bid -Metolazone and Bumex d/c'd (7) Pneumothorax ICD Codes: J93.9 - Pneumothorax, unspecified Status: Resolved Plan: Impression: Noticed on 05/06 CT abdomen/pelvis- large left pneumothorax, bilateral lower lobe consolidation and bilateral moderate-sized pleural effusions. S/P chest tube placement. Chest tube to waterseal for the last few days. Chest tube output 50 mL or less for the past 4 days, including today. -Call Dr. Red and asked if we could pull chest tube. He said he may do that later today. (8) Type 2 diabetes mellitus ICD Codes: E11.9 - Type 2 diabetes mellitus without complications Status: Chronic Plan: Admitted for DKA which has now resolved. Hemoglobin A1C is 12.9. Diabetes Type I is uncontrolled. -Continue Levemir 10 units BID due to hypoglycemia at higher dose -Medium dose insulin sliding scale with goal blood glucose between 140 and 180 -Glucerna for NG tube feedings -D/C Regular accuchecks (9) Atrial fibrillation ICD Codes: I48.91 - Unspecified atrial fibrillation Status: Acute Plan: Hx of intermittent Afib. Resolved with administration of Lopressor. -Continue to monitor -Lopressor PRN (10) Hip fracture ICD Codes: S72.009A - Fracture of unspecified part of neck of unspecified femur , initial encounter for closed fracture Status: Acute Plan: S/P left hip reduction and intramedullary nail fixation on 04-21-17 -Consult orthopedics-appreciate recs * WBAT * Daily dressing changes -Calcium/Vitamin D -Fluids as above -Tylenol, morphine PRN pain (11) Hypertension ICD Codes: I10 - Essential (primary) hypertension Status: Acute Plan: IV hydration. BPs wnl overnight -Continue fluids as above -Antihypertensives to keep SBP<180 -Lasix or Bumex for diuresis as required (12) On mechanically assisted ventilation ICD Codes: Z99.11 - Dependence on respirator [ventilator] status Plan: Impression: On CPAP trial to wean off ventilation; 40% FiO2 -Continue weaning trials as tolerated (13) Elevated LFTs ICD Codes: R79.89 - Other specified abnormal findings of blood chemistry Plan: Impression: LFT elevations with alkaline phosphatase gradually rising from 351-1931 and AST rising from 50s to 217. Liver/biliary etiology expected as GGT 787. Gallbladder ultrasound obtained by regulator mechanic 05/08; focally unremarkable in appearance of gallbladder -Incrementally resolving since chest tube placement -Monitor at this time (14) Fluids, Electrolytes, and Nutrition Status: Acute Plan: Fluids: IVF as above Electrolyte: on electrolyte protocol Nutrition: Glucerna tube feeds, added beneprotein DVT ppx: SCDs/lovenox 40 mg daily GI ppx: protonix Colace, fleet enema mineral oil (Jose R Bennett MD R2) Problem Qualifiers (1) Sepsis: Qualified Codes: A41.9 - Sepsis, unspecified organism (2) Fluid overload: Qualified Codes: E87.79 - Other fluid overload (3) Pneumothorax: (4) Type 2 diabetes mellitus: Qualified Codes: E11.9 - Type 2 diabetes mellitus without complications (5) Atrial fibrillation: Qualified Codes: I48.0 - Paroxysmal atrial fibrillation (6) Hip fracture: (7) Hypertension: Qualified Codes: I10 - Essential (primary) hypertension Jose R Bennett MD R2 May 12, 2017 11:50 Fazal Zamora MD May 14, 2017 21:41
[2017-05-12] MEDS: BENEPROTEIN POWDER 1 PACK G-TUBE SCH ×2 (12:31→17:51)
--- NOTE | 2017-05-12 13:52 | EKG ---
Date Performed: 05/11/2017 Time Performed: 11:38:58 PTAGE: 76 years EKG: Atrial fibrillation Possible inferior infarct - age undetermined QRS changes V3/V4 may be d ue to LVH but cannot rule out anterior infarct Lateral T wave changes may be due to myocardial ischem ia Generalized low QRS voltages Abnormal ECG Compared to prior tracing no significant change PREVIOUS TRACING : 05/04/2017 18.52 DOCTOR: Kaur Gunderson Interpretating Date/Time 05/12/2017 13:51:25
--- NOTE | 2017-05-12 15:29 | HHI.IDPN ---
Subjective Subjective Remarks ID X cover afebrile Remains on vent. Opens eyes, not tracking Does not track or follow commands UO ok. Right side hemiplegia. Moves LUE and LLE. Large volume liquid diarrhea, c.diff nega 2/ CT was removed Antibiotics Levaquin Flagyl. Lines Line sites with no e.o infection. Past Medical History reviewed Allergies: Coded Allergies: No Known Allergies (Unverified , 04/20/17) Objective . Vital Signs Date Time Temp Pulse Resp B/P (MAP) Pulse Ox O2 Delivery O2 Flow Rate FiO2 05/12/17 14:00 79 05/12/17 12:00 81 05/12/17 12:00 40 05/12/17 12:00 97.8 78 14 141/65 (90) 100 05/12/17 11:35 100 40 05/12/17 10:05 40 05/12/17 10:00 80 05/12/17 08:30 40 05/12/17 08:29 100 40 05/12/17 08:00 97.6 78 14 141/65 (90) 100 05/12/17 08:00 78 05/12/17 08:00 45 05/12/17 07:00 100 Mechanical Ventilator 45 05/12/17 06:00 84 05/12/17 04:15 100 40 05/12/17 04:00 97.4 79 14 151/72 (98) 100 05/12/17 04:00 79 05/12/17 04:00 45 05/12/17 02:00 76 05/12/17 00:04 100 40 05/12/17 00:00 79 05/12/17 00:00 97.8 79 14 135/63 (87) 100 05/12/17 00:00 45 05/11/17 22:00 90 05/11/17 20:23 100 40 05/11/17 20:00 80 05/11/17 20:00 97.7 80 16 112/59 (76) 100 05/11/17 20:00 45 05/11/17 19:00 100 Mechanical Ventilator 45 05/11/17 18:00 79 05/11/17 16:03 100 45 05/11/17 16:00 81 05/11/17 16:00 98.3 81 21 118/58 (78) 100 05/11/17 16:00 45 . Laboratory Tests Test 05/11/17 04:55 05/12/17 04:00 Blood Urea Nitrogen 29 MG/DL 27 MG/DL Creatinine 0.37 MG/DL 0.41 MG/DL Random Glucose 200 MG/DL 177 MG/DL Total Protein 3.1 GM/DL 4.6 GM/DL Albumin 0.7 GM/DL Calcium Level 6.6 MG/DL 7.1 MG/DL Alkaline Phosphatase 549 U/L Aspartate Amino Transf (AST/SGOT) 30 U/L Alanine Aminotransferase (ALT/SGPT) 14 U/L Total Bilirubin 0.6 MG/DL Direct Bilirubin 0.2 MG/DL Sodium Level 145 MEQ/L 141 MEQ/L Potassium Level 3.7 MEQ/L 5.2 MEQ/L Chloride Level 106 MEQ/L 103 MEQ/L Carbon Dioxide Level 35.5 MEQ/L 31.8 MEQ/L Anion Gap 4 MEQ/L 6 MEQ/L Estimat Glomerular Filtration Rate 171 ML/MIN 152 ML/MIN Protein Corrected Calcium 8.9 MG/DL 8.5 MG/DL Indirect Bilirubin 0.4 MG/DL Imaging Last Impressions Chest X-Ray 05/11/17 0000 Signed Impressions: Service Date/Time: Thursday, May 11, 2017 09:37 - CONCLUSION: 1. Small right pleural effusion. 2. Bilateral mid and lower lung zone predominant air space opacity could represent pulmonary edema given the appearance and distribution. Obdulio Sam MD Abdomen X-Ray 05/10/17 0000 Signed Impressions: Service Date/Time: Wednesday, May 10, 2017 22:08 - CONCLUSION: Tip of Dobbhoff catheter is in the antrum of the stomach. Sage Adler MD Gall Bladder Ultrasound 05/08/17 0000 Signed Impressions: Service Date/Time: May 08:23 - CONCLUSION: Focally unremarkable appearance of the gallbladder Obdulio Chun MD Abdomen/Pelvis CT 05/07/17 0000 Signed Impressions: Service Date/Time: Sunday, May 07, 2017 13:23 - CONCLUSION: 1. Large left pneumothorax. 2. Bilateral lower lobe consolidation and bilateral moderate size pleural effusions. 3. Significant soft tissue thickening of the right lateral chest wall and left gluteus muscle. 4. Mild ascites. The findings were called to Dr. Carney. Deangelo Zamora MD Head CT 05/06/17 0000 Signed Impressions: Service Date/Time: Saturday, May 06, 2017 04:18 - CONCLUSION: 1. Evolving large left-sided MCA territory infarct with minimally improved [id number] subfalcine shift. 2. No intercurrent hemorrhage or other acute abnormality. Alejo De La Vega MD Hip and Pelvis X-Ray 05/05/17 0000 Signed Impressions: Service Date/Time: Friday, May 05, 2017 10:59 - CONCLUSION: Left proximal femur trochanteric/subtrochanteric fracture lucency visualized. Postoperative changes. Choco Mustafa MD Chest CT 04/30/17 0000 Signed Impressions: Service Date/Time: Sunday, April 30, 2017 09:20 - CONCLUSION: 1. Bilateral pulmonary infiltrates more pronounced within the lower lobes with tiny bilateral pleural effusions. Material seen filling the lower lobe bronchi bilaterally either related to purulent material or perhaps mucus plugging. Deangelo Wren Jr., MD Carotid Artery Ultrasound 04/24/17 0000 Signed Impressions: Service Date/Time: April 09:45 - CONCLUSION: 1. No hemodynamically significant carotid artery stenosis. Arnie Middleton MD Hip X-Ray 04/21/17 0000 Signed Impressions: Service Date/Time: Friday, April 21, 2017 11:36 - CONCLUSION: Fluoroscopic images during placement of intramedullary siomara left femur. Benja Ramsey MD Physical Exam GENERAL: Obese, well-developed patient, in no apparent distress. SKIN: No rashes, ecchymoses or lesions. Cool and dry. EYES: Pupils equal round and reactive. Extraocular motions intact. No scleral icterus. No injection or drainage. ENT: orally intubated NECK: Trachea midline. Supple, nontender, no meningeal signs. CARDIOVASCULAR: Regular rate and rhythm without murmurs, gallops, or rubs. RESPIRATORY: Clear to auscultation. Breath sounds equal bilaterally. GASTROINTESTINAL: Abdomen soft, distended. No tenderness in RUQ noted or any quadrants noted. Incontinent of large amount of liquid stool in dignishield bag MUSCULOSKELETAL: Pedal edema. Generalized anasarca. NEUROLOGICAL:. Opens eyes, not tracking Does not track or follow commands Right side hemiplegia. Moves LUE spontaneously Psych: could not be assessed. IV line sites with no e.o infection. : UOP ok, 4K+ cc Assessment & Plan Remarks Sepsis MSSA and Serratia aspiration pneumonia. C.glabrata Cath associated UTI. Left pneumothorax plan on pigtail cath today. Abnormal LFTs: Cholecystitis, Micafungin IV, flagyl Left MCA infarction Abx associated diarrhea, c.diff negative Recs: Continue Levaquin Add cefepime dc oral flagyl fu WBC, fu clincially rechk sputum clx Kayleigh Dash MD May 12, 2017 15:29
[2017-05-13] VITALS (19 sets, daily range): BP systolic 112–134; BP diastolic 55–81; PULSE 72–87; RESP 14–25; TEMP 97.8–99.1; O2SAT 95–100
--- NOTE | 2017-05-13 04:48 | RADRPT ---
EXAM DATE/TIME: 05/13/2017 04:07 [facility] COMPARISON: CT BRAIN W/O CONTRAST, May 06, 2017, 4:18. INDICATIONS : Follow up stroke. RADIATION DOSE: 49.50 CTDIvol (mGy) ; Tabletop CT Head MEDICAL HISTORY : Hyperparathyroidism. Diabetes mellitus type 2. SURGICAL HISTORY : None. ENCOUNTER: Subsequent ACUITY: 2 weeks PAIN SCALE: Non-responsive LOCATION: cranial TECHNIQUE: Multiple contiguous axial images were obtained of the head. Using automated exposure control and adj ustment of the mA and/or kV according to patient size, radiation dose was kept as low as reasonably a chievable to obtain optimal diagnostic quality images. DICOM format image data is available electro nically for review and comparison. FINDINGS: There is a large evolving infarct in the left MCA distribution. Mass effect and midline shift is decr easing. No new hemorrhage. No acute bony abnormalities. CONCLUSION: 1. Evolving large left MCA distribution infarct with 5 mm left to right shift, improved since prior e xam. Jaime Velasquez MD on May 13, 2017 at 4:44 Board Certified Radiologist. This report was verified electronically.
[2017-05-13] MEDS: metroNIDAZOLE 500 MG TAB DOBHOFF SCH ×2 (05:44→13:37)
[2017-05-13 07:51] LABS: HEMATOCRIT 23.5 % (35.0-46.0); HEMOGLOBIN 7.8 GM/DL (11.6-15.3); MEAN CORPUSCULAR HEMOGLOBIN 32.3 PG (27.0-34.0); MEAN CORPUSCULAR HGB CONC 33.3 % (32.0-36.0); MEAN PLATELET VOLUME 8.2 FL (7.0-11.0); PLATELET COUNT 384 TH/MM3 (150-450); RED BLOOD COUNT 2.42 MIL/MM3 (4.00-5.30); RED CELL DISTRIBUTION WIDTH 17.9 % (11.6-17.2); WHITE BLOOD COUNT 10.1 TH/MM3 (4.0-11.0)
[2017-05-13 08:37] LABS: BICARBONATE 31.7 MEQ/L (21.0-32.0); CALCIUM 7.4 MG/DL (8.5-10.1); CREATININE 0.42 MG/DL (0.50-1.00)
[2017-05-13] MEDS: DOCUSATE SODIUM 100 MG/10 ML UDC PO SCH ×2 (09:00→20:03)
[2017-05-13] MEDS: SENNOSIDES SYRUP 8.8 MG/5 ML CUP OG-TUBE SCH ×2 (09:00→20:03)
[2017-05-13] MEDS: SODIUM CHLORIDE 0.9% FLUSH 5 ML FLUSH IV FLUSH SCH ×2 (09:00→21:00)
[2017-05-13] MEDS: POLYETHYLENE GLYCOL 17 GM PKG OG-TUBE SCH ×2 (09:00→20:03)
[2017-05-13] MEDS: LACTULOSE SYRUP 20 GM/30 ML CUP PO SCH ×4 (09:00→20:23)
[2017-05-13] MEDS: FUROSEMIDE 40 MG/4 ML VIAL IV PUSH SCH ×2 (09:00→17:59)
[2017-05-13 09:01] LABS: CALCIUM-PROTEIN CORRECTED 8.6 MG/DL (8.5-10.1); TOTAL PROTEIN 4.9 GM/DL (6.4-8.2)
--- NOTE | 2017-05-13 09:06 | HHI.CCPN ---
Subjective Remarks/Hospital Course 04/24: 76-year-old female with a medical history significant for prior stroke, diabetes mellitus who was admitted with DKA and a hip fracture for which she underwent ORIF on 04/21. Patient developed altered mental status and was last noted to be okay around 5:30 AM. Subsequently there was a change in her mental status and she was noted to not be moving her right side for which stroke alert was called. Head CT showed large left MCA territory ischemic infarct with edema. Patient was transferred to the ICU by family medicine service in the critical care consult was requested. I evaluated the patient following arrival to the ICU. At that time she was laying in bed with her eyes open however not following commands and had a dense right hemiplegia. Patient was also evaluated by Dr. Malave from neurology. I further discussed current event with patient's daughter following her arrival to the ICU. Per the daughter patient has been living with her since her stroke in 2014 and does ambulate however has been having problems with memory and incontinence as well as gait difficulties. She does not feel patient would want intubation or tracheostomy or PEG tube. 04/25: Patient remains encephalopathic, awake though not following commands consistently. Dense right hemiplegia persists. Appears to be awake enough to protect airway currently. Patient's daughter rescinded DNR and made a full code last evening. 04/26: Remains encephalopathic, not following commands. On Dobbhoff for tube feeds at 30 cc per hour. Had urinary retention and drained 2 L of urine after placing Leavitt catheter today. CT head done this morning with large left MCA territory infarct with left to right midline shift and significant cerebral edema. Hyperglycemia noted. Patient given mannitol earlier for increasing cerebral edema. 04/27: Remains encephalopathic, not following commands. On Dobbhoff tube feeds at 30 cc per hour. When into A. fib with RVR last night which responded with Lopressor 5 mg IV 1 dose. 04/28: Remains encephalopathic, arousable, not following commands. Moves left upper extremity spontaneously. Tolerating Dobbhoff tube feeds. Remains on nasal cannula. 04/29: Encephalopathic, eyes be arousable, moves left upper extremity spontaneously and occasionally opens eyes. Dense right hemiplegia and aphasia persists. On nasal cannula. Dobbhoff tube feeds being advanced. Patient was transfused 1 unit PRBCs yesterday. Urine culture with yeast from yesterday for which fluconazole being started. Had brief run of A. fib with RVR which improved with Lopressor IV, currently in sinus rhythm. 04/30: Worsening hypoxemic respiratory failure, currently on partial nonrebreather. Remains lethargic. WBC count increased from 14.6 today 20.7. Chest x-ray shows bilateral worsening infiltrates and small pleural effusions. Sodium 154, weight up by 8 KG. Albumin 1 mg Bumex 1. Also one dose of albumin. Remains in sinus tachycardia. Tmax 101.3 05/01: Patient was intubated yesterday for lack of airway protection, and severe hypoxemic respiratory failure from aspiration pneumonia involving multiple lobes. Patient is on the vent lethargic, no spontaneous eye opening. Chest x- ray remains unchanged. Remains intermittently febrile Tmax 101.3. WBC count improving 05/02: Remains critically ill with no improvement in mental status. Spiking fever of 101.7. Blood culture and sputum culture with staph aureus sputum also growing GNR, WBC count 22,000 now indicating worsening sepsis. Daughter still requesting aggressive care. Palliative care is following 05/03: S/P large area dominant hemisphere CVA. No neurological improvement. Now with pneumonia (infiltrate, fever, leukocytosis) and appropriate abx coverage. She will have a hard time surviving the hip fx, CVA, and pneumonia. Palliative Care needs to be a mainstay of our plan. 05/04: No improvement in neuro status. Sputum C&S allows us to narrow abx coverage to levaquin alone. Lungs remain quite congested. Enteral nutrition tolerated. 05/05: No improvement in neuro status. Moves left arm spontaneously. Flaccid right side. Unresponsive. Persistent mild hypoglycemia - will cut Levemir 50%. Abdomen more distended, check KUB. 05/06: CT head with massive left MCA infarction and > 1 cm shift in right handed woman. She opens eyes, does not track. 05/07: Patient open eyes. Attempts to respond. [place]an speaking. Tolerating tube feeds. Positive bowel movement. Volume overloaded. Subjective 05/08: Tmax 99.4. Potassium being replaced. Ultrasound gallbladder currently pending. Transaminases are trending downward. Gently diurese. 05/09: Alk phos decreasing. Remains with good urine output. Neurological status not improving. 05/10: Fixed neuro deficit unchanged. Profound CVA. 05/11: Appears to track with eyes today. No improvement in motor function. Remains very edematous, diuretics doubled. 05/12: Continued thick secretions. Afebrile, leukocytosis resolved. 05/13: CT head with completed left MCA stroke, persistent edema and 5 mm shift away. Does not last long on SBTs - major decision now is trach/PEG. Objective Vital Signs Date Time Temp Pulse Resp B/P (MAP) Pulse Ox O2 Delivery O2 Flow Rate FiO2 05/13/17 08:19 99 40 05/13/17 06:00 72 05/13/17 04:00 97.8 16 113/70 (84) 05/12/17 19:00 Mechanical Ventilator Intake and Output 05/13/17 05/13/17 05/14/17 08:00 16:00 00:00 Intake Total 730 ml Output Total 1300 ml Balance -570 ml Result Diagram: 05/13/17 0740 05/13/17 0740 Imaging Last Impressions Chest X-Ray 05/07/17 0400 Signed Impressions: Service Date/Time: Sunday, May 07, 2017 04:38 - CONCLUSION: 1. Stable Low-lying ETT with tip approximately 1 cm above the valerie. 2. Mild interval progression of bilateral airspace consolidation exaggerated by patient rotation. 3. Increased small left pleural effusion. Alejo De La Vega MD Abdomen/Pelvis CT 05/07/17 0000 Signed Impressions: Service Date/Time: Sunday, May 07, 2017 13:23 - CONCLUSION: 1. Large left pneumothorax. 2. Bilateral lower lobe consolidation and bilateral moderate size pleural effusions. 3. Significant soft tissue thickening of the right lateral chest wall and left gluteus muscle. 4. Mild ascites. The findings were called to Dr. Carney. Deangelo Zamora MD Head CT 05/06/17 0000 Signed Impressions: Service Date/Time: Saturday, May 06, 2017 04:18 - CONCLUSION: 1. Evolving large left-sided MCA territory infarct with minimally improved [id number]-[id number] subfalcine shift. 2. No intercurrent hemorrhage or other acute abnormality. Alejo De La Vega MD Abdomen X-Ray 05/06/17 0000 Signed Impressions: Service Date/Time: Saturday, May 06, 2017 17:42 - CONCLUSION: Dobbhoff feeding tube tip near the gastroduodenal junction. Obdulio Simms MD Hip and Pelvis X-Ray 05/05/17 0000 Signed Impressions: Service Date/Time: Friday, May 05, 2017 10:59 - CONCLUSION: Left proximal femur trochanteric/subtrochanteric fracture lucency visualized. Postoperative changes. Choco Mustafa MD Chest CT 04/30/17 0000 Signed Impressions: Service Date/Time: Sunday, April 30, 2017 09:20 - CONCLUSION: 1. Bilateral pulmonary infiltrates more pronounced within the lower lobes with tiny bilateral pleural effusions. Material seen filling the lower lobe bronchi bilaterally either related to purulent material or perhaps mucus plugging. Deangelo Wren Jr., MD Carotid Artery Ultrasound 04/24/17 0000 Signed Impressions: Service Date/Time: April 09:45 - CONCLUSION: 1. No hemodynamically significant carotid artery stenosis. Arnie Middleton MD Hip X-Ray 04/21/17 0000 Signed Impressions: Service Date/Time: Friday, April 21, 2017 11:36 - CONCLUSION: Fluoroscopic images during placement of intramedullary siomara left femur. Benja Ramsey MD Objective Remarks Gen: 76-year-old female HEENT: Pallor present. Moderate dark ET tube secretions Neck: Orally intubated. Chest/pulmonary: Scattered rhonchi. Chest tube d/c'd Cardiovascular: RRR. S1, S2, without murmur, rub GI/abdomen: Distended. Nontender. Active bowel sounds are present. Extremities: Warm bilaterally, anasarca 2+ upper and 2+ lower extremity edema. Incision sites over left hip, thigh ORIF site clean dry and intact. Neuro: Intubated on no sedation. Spontaneous eye opening, stares to left, does appear to track and possibly focus. Dense right hemiplegia noted. Localizes with left upper extremity, Withdraws LLE. No change. Pupils 2 mm, react. Date of Insertion: May 02, 2017 A/P Assessment and Plan Neuro/Psych: Left MCA CVA - 12 mm of [id number]-jvelz subfalcine herniation - right-sided hemiplegia Acute encephalopathy History CVA Follow neuro status closely. Continue Aspirin 325 mg by mouth daily Patient was not a candidate for thrombolysis per discussion with neurology and radiology. Repeat head CT 05/05 showed slight improvement in the midline shift and mass effect Neurosurgery consulted 04/30- Dr. López, recommended conservative management Neurology following - Dr. Malave On morphine 1-2 every 3 hours when necessary pain Cardiovascular: Hypertension IV fluids currently on hold due to edema As needed Antihypertensives to keep systolic blood pressure less than to 180 mmHg Echocardiogram 04/24 - EF 50 to 55%. Mild concentric LVH. Pulmonary: Acute hypoxic respiratory failure - aspiration possible HCAP Large left pneumothorax status post #10 Lithuanian chest tube 05/07 PRVC 14/400// Ventilator bundle Ipratropium/albuterol aerosols every 6 hours with albuterol aerosols every 2 hours. Dyspnea Intubated on 04/30/17 for worsening hypoxemic respiratory failure, aspiration pneumonia Chest x-ray shows 05/08 revealed increasing infiltrate/small pleural effusion left side. Right-sided chest tube in place. CT of the chest 04/30/17 showed severe bibasilar consolidation, and evidence of aspiration Daily SBTs. GI/liver: Elevated transaminases Hypoalbuminemia Moderate to severe protein calorie malnutrition Dobbhoff for tube feedings and medications. Continue tube feeding with Glucerna 1.5 goal 45 cc an hour On hold 05/08 due to possible cholecystostomy tube placement depending on ultrasound gallbladder Lansoprazole 30 mg daily for GI regimen Docusate sodium 100 twice a day, Senokot 8.6 twice a day, polyethylene glycol 17 grams twice a day and lactulose 30 cc 4 times a day Evaluate CT abdomen/pelvis 05/07 - mild ascites. Large left hemothorax. Right greater than left pleural effusion. Avoid hepatotoxic drugs LFTs improving Endocrine: Diabetes mellitus Detemir 20 units subcutaneous every 12 hours. Currently hold while nothing by mouth Sliding scale insulin Accu-Cheks to maintain euglycemia/low regimen Holding glimepiride 4 mill grams by mouth daily /Renal/FEN: Hypopotassemia Strict intake output, monitor and replete electrolytes, follow BUN/creatinine. Leavitt catheter placed for urinary retention on 04/26. Heme: Chronic Rivaroxaban use Leukocytosis Normocytic anemia Thrombocytosis Follow CBC and coags. On subcutaneous enoxaparin Hemoglobin currently stable. No indications for transfusion of blood proximally at this time ID: MSSA bacteremia Serratia/staph aureus pneumonia C glabrata UTI Pertinent cultures Urine culture 04/26/17 sofie glabrata Blood culture 04/29/17 1 out of 4 bottles staph aureus Sputum culture 04/30/17 staph aureus and Serratia. Blood cultures 2, sputum 1 and urine 05/08 pending -> Serratia On iv levaquin, oral flagyl MSK: Left Intertroch Hip Fx s/p IMN - POD 14 Vitamin D deficiency WBAT DC ginger today redress with Xeroform/Primapore Prophylaxis: SCDs. Enoxaparin 40 mg sq daily-cleared by Dr. Ananda SANDS - lansoprazole Overall impression: Devastating CVA. No improvement. Family coming to discuss hopefully soon. Charles Pedraza MD May 13, 2017 09:06
--- NOTE | 2017-05-13 09:44 | HHI.NSPN ---
(Rene Reed) History Chief Complaint: Unable to obtain due to the patient's clinical condition. 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 05/03/2017: Remains intubated. Minimal eye opening to sternal rub. Grasps left hand good strength to command. 05/06: Patient continues to be intubated and off any sedation. She had a repeat CT brain this morning which demonstrated an evolving large left-sided MCA territory infarct with minimal improvement in the titv-tj-dizaj subfalcine shift. 05/07/17: Remains intubated. Awake and relatively alert. Minimally disconjugate left gaze and response to voice. Moves left upper and lower extremity well to command. CPAP trials 05/08: Patient still is intubated and is on pressure controlled ventilation. She is not on any sedation and arouses to noxious stimulation. The patient was noted to have a left-sided pneumothorax on her chest x-ray yesterday and the Maturity Checker placed a tube thoracostomy. 05/09: The patient is awake and fairly alert when seen. She does interact readily. The left-sided tube thoracostomy remains in place. 05/10: The patient remains intubated and mechanically ventilated. Initially the patient had her eyes closed but did follow commands. A few minutes later she was noted to have her eyes open without any stimulation. 05/11: This morning the patient is noted to have her eyes open and does appear to look about the room. She does follow commands. She remains intubated and mechanically ventilated. 05/13: When seen the patient is intubated without any sedation. She does not open her eyes to any stimulation and it is questionable whether she did follow the command to squeeze with the left hand. The left-sided tube thoracostomy has been removed since the patient was last seen. (Rene Reed) System Review Comments Unable to obtain due to the patient's clinical condition. (Rene Reed) Exam Results 9/1005/11/17 05/12/17 05/12/17 05/13/17 05/13/17 06:00 18:00 06:00 18:00 06:00 18:00 Intake Total 232 ml 620 ml 602 ml 459 ml 730 ml Output Total 1145 ml 2450 ml 2725 ml 2275 ml 1300 ml Balance -913 ml -1830 ml -2123 ml -1816 ml -570 ml IV Total 19 ml 63 ml 54 ml Tube Feeding 213 ml 500 ml 539 ml 459 ml 676 ml Other 120 ml Output Urine Total 1125 ml 2000 ml 2175 ml 2075 ml 1300 ml Stool Total 400 ml 550 ml 200 ml 0 ml Chest Tube Drainage Total 20 ml 50 ml 0 ml 0 ml Vital Signs Date Time Temp Pulse Resp B/P (MAP) Pulse Ox O2 Delivery O2 Flow Rate FiO2 05/13/17 08:19 99 40 05/13/17 06:00 72 05/13/17 04:20 100 40 05/13/17 04:00 97.8 78 16 113/70 (84) 100 05/13/17 04:00 40 05/13/17 04:00 100 100 05/13/17 04:00 78 05/13/17 02:00 80 05/13/17 01:02 100 40 05/13/17 00:00 98.1 80 14 112/55 (74) 100 05/13/17 00:00 40 05/13/17 00:00 80 05/12/17 22:03 100 40 05/12/17 22:00 82 05/12/17 20:00 40 05/12/17 20:00 97.8 86 14 109/58 (75) 100 05/12/17 20:00 86 05/12/17 19:00 100 Mechanical Ventilator 45 05/12/17 18:00 95 05/12/17 17:10 100 40 05/12/17 16:00 97.9 95 16 157/71 (99) 100 05/12/17 16:00 88 05/12/17 16:00 40 05/12/17 15:53 100 40 05/12/17 14:00 79 05/12/17 12:00 81 05/12/17 12:00 40 05/12/17 12:00 97.8 78 14 141/65 (90) 100 05/12/17 11:35 100 40 05/12/17 10:05 40 05/12/17 10:00 80 05/12/17 08:30 40 05/12/17 08:29 100 40 05/12/17 08:00 97.6 78 14 141/65 (90) 100 05/12/17 08:00 78 05/12/17 08:00 45 05/12/17 07:00 100 Mechanical Ventilator 45 05/12/17 06:00 84 05/12/17 04:15 100 40 05/12/17 04:00 97.4 79 14 151/72 (98) 100 05/12/17 04:00 79 05/12/17 04:00 45 05/12/17 02:00 76 05/12/17 00:04 100 40 05/12/17 00:00 79 05/12/17 00:00 97.8 79 14 135/63 (87) 100 05/12/17 00:00 45 05/11/17 22:00 90 05/11/17 20:23 100 40 05/11/17 20:00 80 05/11/17 20:00 97.7 80 16 112/59 (76) 100 05/11/17 20:00 45 05/11/17 19:00 100 Mechanical Ventilator 45 05/11/17 18:00 79 05/11/17 16:03 100 45 05/11/17 16:00 81 05/11/17 16:00 98.3 81 21 118/58 (78) 100 05/11/17 16:00 45 05/11/17 14:00 107 05/11/17 12:33 100 55 05/11/17 12:00 101 05/11/17 12:00 45 05/11/17 12:00 98.2 107 21 113/57 (75) 100 05/11/17 10:00 91 05/11/17 09:19 45 05/11/17 09:15 45 05/11/17 09:11 99 45 05/11/17 08:00 98.5 89 15 145/63 (90) 97 05/11/17 08:00 45 05/11/17 08:00 89 05/11/17 07:00 96 Mechanical Ventilator 45 05/11/17 06:00 106 05/11/17 04:17 99 45 05/11/17 04:00 45 05/11/17 04:00 97.8 98 15 111/61 (78) 100 05/11/17 04:00 98 05/11/17 02:00 110 05/11/17 01:03 100 45 05/11/17 00:00 45 05/11/17 00:00 80 05/11/17 00:00 98.5 80 14 119/60 (79) 100 05/10/17 22:00 89 05/10/17 20:02 99 55 05/10/17 20:00 55 05/10/17 20:00 97.9 82 20 128/71 (90) 100 05/10/17 20:00 82 05/10/17 19:00 98 Mechanical Ventilator 45 05/10/17 16:02 98 55 05/10/17 16:00 55 05/10/17 16:00 98.1 86 14 116/61 (79) 100 05/10/17 12:00 55 05/10/17 12:00 98.1 98 23 129/79 (96) 100 05/10/17 11:40 99 55 (Rene Reed) Physical Examination GENERAL: Intubated w/o any sedation. No apparent distress. SKIN: Cool, with generalised dependent edema, w/o any evident rashes, ulcerations or lesions. HEENT: Normocephalic, atraumatic. PERRL. Orally intubated. Right nare feeding tube. NECK: No JVD, trachea midline. CARDIOVASCULAR: S1S2 w/RRR w/o M/G/R, radial & pedal pulses 1+ bilaterally, cap refill < 2 sec, generalised dependent edema. Monitor appears to be sinus rhythm w/o any ectopy noted. RESPIRATORY: Slightly coarse bilaterally, equal excursion, nonlaboured, intubated and on pressure controlled ventilation. GASTROINTESTINAL: Abdomen slightly distended but soft, bowel sounds not appreciated. Feeding tube w/enteral feeds. MUSCULOSKELETAL: No evident deformity or clubbing. NEUROLOGICAL: Intubated w/o any sedation. GCS 7-8T (E1 V1T M5-6). No eye opening to verbal or localised/central noxious stimulation. Questionable weak left hand grasp to command, no response to command or local/ central noxious stimulation to BUE or BLE. (Rene Reed) Lab, Micro, Other Results Recent Impressions Head CT 05/13/17 0600 Signed Impressions: Service Date/Time: Saturday, May 13, 2017 04:07 - CONCLUSION: 1. Evolving large left MCA distribution infarct with 5 mm left to right shift, improved since prior exam. Jaime Velasquez MD Chest X-Ray 05/11/17 0000 Signed Impressions: Service Date/Time: Thursday, May 11, 2017 09:37 - CONCLUSION: 1. Small right pleural effusion. 2. Bilateral mid and lower lung zone predominant air space opacity could represent pulmonary edema given the appearance and distribution. Obdulio Sam MD Laboratory Tests Test 05/10/17 12:00 05/11/17 04:55 05/11/17 17:23 05/12/17 04:00 Stool C. difficile Toxin (PCR) NEGATIVE NEGATIVE Stl C. difficile Toxin Epiderm 027 PRESUMPTIVE NEGATIVE PRESUMPTIVE NEGATIVE Blood Urea Nitrogen 29 MG/DL 27 MG/DL Creatinine 0.37 MG/DL 0.41 MG/DL Random Glucose 200 MG/DL 177 MG/DL Total Protein 3.1 GM/DL 4.6 GM/DL Albumin 0.7 GM/DL Calcium Level 6.6 MG/DL 7.1 MG/DL Alkaline Phosphatase 549 U/L Aspartate Amino Transf (AST/SGOT) 30 U/L Alanine Aminotransferase (ALT/SGPT) 14 U/L Total Bilirubin 0.6 MG/DL Direct Bilirubin 0.2 MG/DL Sodium Level 145 MEQ/L 141 MEQ/L Potassium Level 3.7 MEQ/L 5.2 MEQ/L Chloride Level 106 MEQ/L 103 MEQ/L Carbon Dioxide Level 35.5 MEQ/L 31.8 MEQ/L Anion Gap 4 MEQ/L 6 MEQ/L Estimat Glomerular Filtration Rate 171 ML/MIN 152 ML/MIN Protein Corrected Calcium 8.9 MG/DL 8.5 MG/DL Indirect Bilirubin 0.4 MG/DL Test 05/13/17 07:40 05/13/17 09:00 White Blood Count 10.1 TH/MM3 Red Blood Count 2.42 MIL/MM3 Hemoglobin 7.8 GM/DL Hematocrit 23.5 % Mean Corpuscular Volume 97.0 FL Mean Corpuscular Hemoglobin 32.3 PG Mean Corpuscular Hemoglobin Concent 33.3 % Red Cell Distribution Width 17.9 % Platelet Count 384 TH/MM3 Mean Platelet Volume 8.2 FL Blood Urea Nitrogen 30 MG/DL Creatinine 0.42 MG/DL Random Glucose 151 MG/DL Total Protein 4.9 GM/DL Calcium Level 7.4 MG/DL Sodium Level 140 MEQ/L Potassium Level 2.8 MEQ/L Chloride Level 103 MEQ/L Carbon Dioxide Level 31.7 MEQ/L Anion Gap 5 MEQ/L Estimat Glomerular Filtration Rate 147 ML/MIN Protein Corrected Calcium 8.6 MG/DL (Rene Reed) Medical Decision Making Impression and Plan Impression: 1. Large left MCA CVA 2. Persistent right hemiplegia 3. Aspiration pneumonia 4. Hypoxic respiratory failure Sodium 140 this morning. Poor neurological response, questionable if follows commands, persistent right hemiplegia. Plan: Primary management per Maturity Checker. Frequent neuro checks. Continue ventilatory support. Okay for Lovenox from neurosurgical standpoint. Will follow intermittently while in the hospital. (Rene Reed) Attending Statement The exam, history, and the medical decision-making described in the above note were completed with the assistance of the mid-level provider. I reviewed and agree with the findings presented. I attest that I had a [id number] encounter with the patient on the same day, and personally performed and documented my assessment and findings in the medical record. No change in neurologic exam over the past couple days Continue to monitor sodium Continue intermittent follow-up CT scan Likely will not require surgical intervention (Parker López MD) Rene Reed May 13, 2017 09:44 Parker López MD Jun 09, 2017 07:18
[2017-05-13] MEDS: ENOXAPARIN SODIUM 40 MG/0.4 ML SYRINGE SQ SCH (09:58)
[2017-05-13] MEDS: ASPIRIN 325 MG TAB DOBHOFF SCH (09:59)
[2017-05-13] MEDS: BENEPROTEIN POWDER 1 PACK G-TUBE SCH ×3 (09:59→17:59)
[2017-05-13] MEDS: CHOLECALCIFEROL (VIT D3) 5000 UNIT CAP PO SCH (10:00)
[2017-05-13] MEDS: LANSOPRAZOLE SOLUTAB 30 MG TAB NG SCH (10:00)
[2017-05-13] MEDS: LEVOFLOXACIN 750 MG PREMIX INJ 150 ML IV SCH (10:00)
[2017-05-13] MEDS: CALCIUM/VITAMIN D 250 MG/125 U TAB PO SCH ×3 (10:00→17:58)
[2017-05-13] MEDS: INSULIN DETEMIR 100 UNITS/ML VIAL SQ SCH ×2 (10:10→21:18)
[2017-05-13] MEDS: INSULIN ASPART SUPPLEMENTAL SCALE SQ SCH ×4 (10:11→21:00)
[2017-05-13] MEDS: POTASSIUM CHLOR 20 MEQ PREMIX 100 ML IV PRN ×4 (10:29→16:53)
[2017-05-13] MEDS: RESP: ALBUTEROL 2.5 MG/3 ML NEB (PRN) NEB (11:09)
--- NOTE | 2017-05-13 11:32 | HHI.FPPN ---
Subjective Remarks Patient had her chest tube pulled yesterday. She was also tolerating CPAP for hours yesterday. She was noted to have a slow respiratory rate. Afebrile vital signs stable overnight. Patient has been diuresing well with Lasix 40 mg IV twice a day. (Jose R Bennett MD R2) Objective Vitals Vital Signs Date Time Temp Pulse Resp B/P (MAP) Pulse Ox O2 Delivery O2 Flow Rate FiO2 05/13/17 11:00 100 40 05/13/17 10:00 80 05/13/17 08:19 99 40 05/13/17 08:00 78 05/13/17 08:00 40 05/13/17 08:00 97.9 78 14 133/63 (86) 100 05/13/17 07:00 100 Mechanical Ventilator 40 05/13/17 06:00 72 05/13/17 04:20 100 40 05/13/17 04:00 97.8 78 16 113/70 (84) 100 05/13/17 04:00 40 05/13/17 04:00 100 100 05/13/17 04:00 78 05/13/17 02:00 80 05/13/17 01:02 100 40 05/13/17 00:00 98.1 80 14 112/55 (74) 100 05/13/17 00:00 40 05/13/17 00:00 80 05/12/17 22:03 100 40 05/12/17 22:00 82 05/12/17 20:00 40 05/12/17 20:00 97.8 86 14 109/58 (75) 100 05/12/17 20:00 86 05/12/17 19:00 100 Mechanical Ventilator 45 05/12/17 18:00 95 05/12/17 17:10 100 40 05/12/17 16:00 97.9 95 16 157/71 (99) 100 05/12/17 16:00 88 05/12/17 16:00 40 05/12/17 15:53 100 40 05/12/17 14:00 79 05/12/17 12:00 81 05/12/17 12:00 40 05/12/17 12:00 97.8 78 14 141/65 (90) 100 05/12/17 11:35 100 40 I/O 9/11/17 905/12/17 05/13/17 05/13/17 05/13/17 07:00 15:00 23:00 07:00 15:00 23:00 Intake Total 602 ml 459 ml 730 ml Output Total 2725 ml 2275 ml 1300 ml Balance -2123 ml -1816 ml -570 ml IV Total 63 ml 54 ml Tube Feeding 539 ml 459 ml 676 ml Output Urine Total 2175 ml 2075 ml 1300 ml Stool Total 550 ml 200 ml 0 ml Chest Tube Drainage Total 0 ml 0 ml (Jose R Bennett MD R2) Result Diagram: 05/13/17 0740 05/13/17 0900 Imaging Last Impressions Head CT 05/13/17 0600 Signed Impressions: Service Date/Time: Saturday, May 13, 2017 04:07 - CONCLUSION: 1. Evolving large left MCA distribution infarct with 5 mm left to right shift, improved since prior exam. Jaime Velasquez MD Chest X-Ray 05/11/17 0000 Signed Impressions: Service Date/Time: Thursday, May 11, 2017 09:37 - CONCLUSION: 1. Small right pleural effusion. 2. Bilateral mid and lower lung zone predominant air space opacity could represent pulmonary edema given the appearance and distribution. Obdulio Sam MD Abdomen X-Ray 05/10/17 0000 Signed Impressions: Service Date/Time: Wednesday, May 10, 2017 22:08 - CONCLUSION: Tip of Dobbhoff catheter is in the antrum of the stomach. Sage Adler MD Gall Bladder Ultrasound 05/08/17 0000 Signed Impressions: Service Date/Time: May 08:23 - CONCLUSION: Focally unremarkable appearance of the gallbladder Obdulio Chun MD Abdomen/Pelvis CT 05/07/17 0000 Signed Impressions: Service Date/Time: Sunday, May 07, 2017 13:23 - CONCLUSION: 1. Large left pneumothorax. 2. Bilateral lower lobe consolidation and bilateral moderate size pleural effusions. 3. Significant soft tissue thickening of the right lateral chest wall and left gluteus muscle. 4. Mild ascites. The findings were called to Dr. Carney. Deangelo Zamora MD Hip and Pelvis X-Ray 05/05/17 0000 Signed Impressions: Service Date/Time: Friday, May 05, 2017 10:59 - CONCLUSION: Left proximal femur trochanteric/subtrochanteric fracture lucency visualized. Postoperative changes. Choco Mustafa MD Chest CT 04/30/17 0000 Signed Impressions: Service Date/Time: Sunday, April 30, 2017 09:20 - CONCLUSION: 1. Bilateral pulmonary infiltrates more pronounced within the lower lobes with tiny bilateral pleural effusions. Material seen filling the lower lobe bronchi bilaterally either related to purulent material or perhaps mucus plugging. Deangelo Wren Jr., MD Carotid Artery Ultrasound 04/24/17 0000 Signed Impressions: Service Date/Time: April 09:45 - CONCLUSION: 1. No hemodynamically significant carotid artery stenosis. Arnie Middleton MD Hip X-Ray 04/21/17 0000 Signed Impressions: Service Date/Time: Friday, April 21, 2017 11:36 - CONCLUSION: Fluoroscopic images during placement of intramedullary siomara left femur. Benja Ramsey MD Objective Remarks CONSTITUTIONAL/GEN: Nonverbal, lying in bed. Intubated with intermittent CPAP trials, receiving tube feeds. Patient's eyes remain closed despite sternal rub; she does not grasp my hand today HEAD: Normocephalic. Atraumatic. G-tube and endotracheal tube in place. LUNGS: Coarse breath sounds bilaterally but moving air well CARDIOVASCULAR: Regular rate and regular rhythm. Lower extremity bilateral pitting edema, improving. Right hand still puffy, but improving. Left arm much improved today without any pitting edema. GI/ABD: less distended and less tense with much less edema, without masses, without organomegaly. Rectal tube draining yellow-brown solid and dark brown liquid. NEURO: Intubated; eyes closed. Patient seems to be asleep today. Patient has flaccid paralysis on the right side. Moves left side spontaneously. : Dark yellow urine draining into moser bag MUSC: SCDs on bilateral lower extremities. Pedal pulses weak. SKIN: Erythematous sacral wound Procedures ORIF 04/21/17 Intubation 04/30/17 (Jose R Bennett MD R2) Date of Insertion: May 02, 2017 (Jose R Bennett MD R2) A/P Assessment and Plan 76 y/o female with HTN, DM, CVA admitted for DKA and hip fracture. Now with massive left MCA stroke, right hemiplegia and midline shift resolving. Neuro and leadite man consulted. Working with palliative care and family for goals of care. 05/07 CT abdomen/pelvis shows large pneumothorax on left side decompressed with chest tube. Plan to pull chest tube today on 05/12. -Overall poor prognosis, pursuing goals of care discussion with daughter (HCPOA) , but at this time daughter wishes continued intervention -05/09 - extensive discussion with daughter today indicates no willingness to pursue comfort measures only. Daughter continues to ask for aggressive management of her mother's condition; will continue to engage in this discussion -05/11--CXR w/bilateral pleural effusions vs pulmonary edema--diuresis ordered Discharge Planning Pending stroke progression and discussion for goals of care (Jose R Bennett MD R2) Attending Attestation Patient seen and examined. Case reviewed and discussed with the resident team. Agree with plan of care as discussed with me and documented in the resident note. difficult situation. will ask case management about her pending insurance. have yet to meet her daughter. she at least had her chest tube removed! (Dawn Guajardo MD) Problem List: (1) Acute CVA (cerebrovascular accident) ICD Codes: I63.9 - Cerebral infarction, unspecified Status: Acute Plan: Patient found minimally responsive with neurological deficits around 0820 04/24. Stat CT of head was ordered, which showed large left MCA infarct. Diffuse edema throughout the left MCA distribution, suggest completed infarct. This was discussed and was not a candidate for intracranial intervention. CT (04/30): Reduction in midline shift to 11mm. Unchanged large left MCA infarction. CT head (05/06) shows: Evolving large left-sided MCA territory infarct with minimally improved dyps-vr-nwxty subfalcine shift. No intercurrent hemorrhage or other acute abnormality. Echocardiogram- The left ventricular systolic function is low normal with an estimated ejection fraction in the range of 50-55%. Mild concentric left ventricular hypertrophy. Normal left ventricular size. Ldgct-at-gxrm mitral valve regurgitation. Carotid Artery US- No hemodynamically significant carotid stenosis -Consulted leadite man, appreciate recs -Intubated/sedated; does not recommend tracheostomy -IV hydration, watch for hypotension. -Keep systolic to less than 220 -Lactated Ringer's reduced to 75 ml/hr -Poor prognosis -Neurosurgery consulted -Recommended conservative management -Keep Na in 145-154 range -Tube feeds: Glucerna 1.5 mLs for diet via Dobbhoff tube -Systems Development Manager consult for management and recs -Added beneprotein to G-tube -Consult palliative care-appreciate recs -Case discussed with daughter in-person about goals of care, limited treatment options, and poor prognosis. -Daughter continues to want aggressive care. Wishes to continue aggressive medical treatment despite prognosis -Neurology consulted-appreciate recs -Rectal ASA -Lovenox 40mg daily (2) Sepsis ICD Codes: A41.9 - Sepsis, unspecified organism Status: Acute Plan: Impression: Pt met SIRS criteria with tachycardia, leukocytosis Leukocytosis resolved today. Cultures: 05/07 Blood cultures and sputum cultures negative to date 04/30 Sputum culture with staph, Serratia 04/29 blood culture with staph -See antibiotics as below -Culture results as below -Monitor vitals (3) HCAP (healthcare-associated pneumonia) ICD Codes: J18.9 - Pneumonia, unspecified organism Status: Acute Plan: Suspect possible HCAP. Persistent leukocytosis. Possible aspiration Chest CT (04/30): Bilateral pulmonary infiltrates more pronounced within lower lobes with b/l pleural effusions. Material in lower lobe bronchi b/l, purulent or mucus plugging 04/30 Sputum culture showing staph aureus and Serratia Marcescens Legionella and strep pneumo urine tests negative CXR 05/02: Increased airspace opacity bilaterally. The pattern may represent pulmonary edema. There is likely a left pleural effusion. CXR 05/08: Stable diffuse consolidation of right warm to much lesser extent left perihilar region consistent with pneumonia or asymmetric pulmonary vascular congestion CXR 05/09: no pneumothorax, but small subcutaneous emphysema in left chest, patchy opacity in right lower lung consistent with pneumonia or pulmonary vascular congestion. Continue antibiotic therapy -Levaquin IV 750 mg (05/04- ) HCAP -Flagyl 500mg q8H (04/29 - ) for aspiration -Repeat blood cultures (05/07) pending , with 1/ positive; possible contaminant -Sputum cx 05/07 reveals Serratia marascens susceptible to cefepime, erta/imi, genta, tobra, bactrim and levo--continuing levaquin as above -Duonebs treatments q6h Antibiotic History -Discontinued Cefepime 2g IV daily (04/30 - d/c 05/04 ) -Discontinued Vancomycin IV (04/30 - d/c 05/04 ) (4) Yeast UTI ICD Codes: B37.49 - Other urogenital candidiasis Status: Resolved Plan: UA showed glucose, large number of leukocytes esterase, innumerable WBCs , rare bacteria, and few yeast Urine culture shows Lea Glabrata; however, high GGT and Alk Phos require reducing hepatotoxic drugs -D/C Micafungin 100mg IV daily as it is hepatically metabolized -Urine cx 05/09 pending (5) Abdominal distension ICD Codes: R14.0 - Abdominal distension (gaseous) Status: Acute Plan: Impression: Abdominal distension much improved today; first noted on exam 05/05 with serial KUBs neg for etiology. In association with transaminase elevation and Alk P >1k and GGT elevation. s/p large BM 05/07 per nursing staff 05/06 - CT abdomen/pelvis- large left pneumothorax, bilateral lower lobe consolidation and bilateral moderate-sized pleural effusions, significant soft tissue thickening of right lateral chest wall and left gluteus. Mild ascites 05/09 - abdominal distension unchanged; however, LFTs resolving following chest tube -Continue to monitor at this time -Continue to follow LFTs 05/11 - abdominal distention seems to be related to diffuse edema, trial of Lasix 20 mg IV twice a day, which was increased to 40 mg IV twice a day 05/12 - much less abdominal distention today. Significant improvement with significant net diuresis of almost 4 L. (6) Fluid overload ICD Codes: E87.70 - Fluid overload, unspecified Status: Acute Plan: Strip Cutting Machine Operator noted fluid overload -Lasix IV bid -Metolazone and Bumex d/c'd (7) Pneumothorax ICD Codes: J93.9 - Pneumothorax, unspecified Status: Resolved Plan: Impression: Noticed on 05/06 CT abdomen/pelvis- large left pneumothorax, bilateral lower lobe consolidation and bilateral moderate-sized pleural effusions. S/P chest tube placement. Chest tube to waterseal for the last few days. Chest tube output 50 mL or less for the past 4 days, including today. -Chest tube pulled on 05/12/17 -Follow up chest x-ray today (8) Type 2 diabetes mellitus ICD Codes: E11.9 - Type 2 diabetes mellitus without complications Status: Chronic Plan: Admitted for DKA which has now resolved. Hemoglobin A1C is 12.9. Diabetes Type I is uncontrolled. -Continue Levemir 10 units BID due to hypoglycemia at higher dose -Medium dose insulin sliding scale with goal blood glucose between 140 and 180 -Glucerna for NG tube feedings -D/C Regular accuchecks (9) Atrial fibrillation ICD Codes: I48.91 - Unspecified atrial fibrillation Status: Acute Plan: Hx of intermittent Afib. Resolved with administration of Lopressor. -Continue to monitor -Lopressor PRN (10) Hip fracture ICD Codes: S72.009A - Fracture of unspecified part of neck of unspecified femur , initial encounter for closed fracture Status: Acute Plan: S/P left hip reduction and intramedullary nail fixation on 04-21-17 -Consult orthopedics-appreciate recs * WBAT * Daily dressing changes -Calcium/Vitamin D -Fluids as above -Tylenol, morphine PRN pain (11) Hypertension ICD Codes: I10 - Essential (primary) hypertension Status: Acute Plan: IV hydration. BPs wnl overnight -Continue fluids as above -Antihypertensives to keep SBP<180 -Lasix or Bumex for diuresis as required (12) On mechanically assisted ventilation ICD Codes: Z99.11 - Dependence on respirator [ventilator] status Plan: Impression: On CPAP trial to wean off ventilation; 40% FiO2 -Continue weaning trials as tolerated (13) Elevated LFTs ICD Codes: R79.89 - Other specified abnormal findings of blood chemistry Plan: Impression: LFT elevations with alkaline phosphatase gradually rising from 351-1931 and AST rising from 50s to 217. Liver/biliary etiology expected as GGT 787. Gallbladder ultrasound obtained by leadite man 05/08; focally unremarkable in appearance of gallbladder -Incrementally resolving since chest tube placement -Monitor at this time (14) Sacral decubitus ulcer ICD Codes: L89.159 - Pressure ulcer of sacral region, unspecified stage Plan: Patient with beginnings of a sacral decubitus ulcer. -Wound care consult ordered and appreciated (15) Fluids, Electrolytes, and Nutrition Status: Acute Plan: Fluids: IVF as above Electrolyte: on electrolyte protocol Nutrition: Glucerna tube feeds, added beneprotein DVT ppx: SCDs/lovenox 40 mg daily GI ppx: protonix Colace, fleet enema mineral oil (Jose R Bennett MD R2) Problem Qualifiers (1) Sepsis: Qualified Codes: A41.9 - Sepsis, unspecified organism (2) Fluid overload: Qualified Codes: E87.79 - Other fluid overload (3) Pneumothorax: (4) Type 2 diabetes mellitus: Qualified Codes: E11.9 - Type 2 diabetes mellitus without complications (5) Atrial fibrillation: Qualified Codes: I48.0 - Paroxysmal atrial fibrillation (6) Hip fracture: (7) Hypertension: Qualified Codes: I10 - Essential (primary) hypertension Jose R Bennett MD R2 May 13, 2017 11:32 Dawn Guajardo MD May 13, 2017 16:46
--- NOTE | 2017-05-13 15:58 | HHI.PR ---
Review/Management Diagnosis large left MCA stroke-edema is less on todays CT Diagnosis/Plan: Subjective Subjective Comments No acute events reported Active Medications Current Medications Medications (Trade) Dose Ordered Sig/Zeferino Route Start Time Stop Time Status Last Admin (Zofran Inj) 4 mg Q6H PRN IV PUSH 04/20/17 15:00 04/30/17 02:28 (Morphine Inj) 1 mg Q3H PRN IV 04/20/17 17:15 04/28/17 18:15 (Morphine Inj) 2 mg Q3H PRN IV 04/20/17 17:15 04/30/17 02:29 (Narcan Inj) 0.4 mg UNSCH PRN IV 04/20/17 17:15 (Milk Of Magnesia Liq) 30 ml Q12H PRN PO 04/20/17 20:30 (Senokot) 17.2 mg Q12H PRN PO 04/20/17 20:30 04/23/17 22:55 (Dulcolax Supp) 10 mg DAILY PRN RECTAL 04/20/17 20:30 (Oscal-D 250-125) 250 mg TID PO 04/21/17 13:00 05/13/17 12:44 (Vitamin D3) 5,000 units DAILY PO 04/22/17 09:00 05/13/17 10:00 (NS Flush) 2 ml BID IV FLUSH 04/24/17 21:00 05/13/17 09:00 (NS Flush) 2 ml UNSCH PRN IV FLUSH 04/24/17 09:30 (Glucagon Inj) 1 mg UNSCH PRN IM/SQ 04/24/17 18:15 (Aspirin) 325 mg DAILY DOBHOFF 04/27/17 09:00 05/13/17 09:59 (D50w (Syr) Inj) 25 ml UNSCH PRN IV 04/26/17 20:30 05/11/17 01:35 (Lopressor Inj) 5 mg Q5M PRN IV PUSH 04/27/17 04:00 05/03/17 18:26 Potassium Chloride 100 ml @ 50 mls/hr Q2H PRN IV 04/27/17 08:45 Potassium Chloride 100 ml @ 50 mls/hr Q2H PRN IV 04/27/17 08:45 05/13/17 13:57 (K-Lyte Cl Eff) 50 meq UNSCH PRN PO 04/27/17 08:45 Potassium Chloride 100 ml @ 25 mls/hr UNSCH PRN IV 04/27/17 08:45 05/04/17 19:07 Potassium Chloride 100 ml @ 50 mls/hr Q2H PRN IV 04/27/17 08:45 04/29/17 12:15 Magnesium Sulfate 4 gm/Sodium Chloride 100 ml @ 50 mls/hr UNSCH PRN IV 04/27/17 08:45 (Mag-Ox) 800 mg UNSCH PRN PO 04/27/17 08:45 Magnesium Sulfate 2 gm/Sodium Chloride 100 ml @ 50 mls/hr UNSCH PRN IV 04/27/17 08:45 (K-Phos) 2,000 mg Q4H PRN PO 04/27/17 08:45 04/28/17 15:38 Sodium Phosphate 30 mmol/Sodium Chloride 250 ml @ 42 mls/hr UNSCH PRN IV 04/27/17 08:45 04/27/17 23:59 (K-Phos) 2,000 mg UNSCH PRN PO/TUBE 04/27/17 08:45 05/08/17 06:32 Potassium Phosphate 30 mmol/ Sodium Chloride 260 ml @ 42 mls/hr UNSCH PRN IV 04/27/17 08:45 05/04/17 20:54 (NovoLOG SUPPLEMENTAL SCALE) 1 ACHS SLIDING SCALE SQ 04/28/17 16:00 05/13/17 12:18 (Flagyl) 500 mg Q8HR DOBHOFF 04/29/17 14:00 05/13/17 13:37 (Lovenox Inj) 40 mg Q24H SQ 05/01/17 08:00 05/13/17 09:58 Levofloxacin/ Dextrose 150 ml @ 100 mls/hr Q24H IV 05/04/17 09:00 05/13/17 10:00 (Colace Liq) 100 mg Q12HR PO 05/07/17 21:00 05/11/17 09:08 (Senna Liq) 8.8 mg BID OG-TUBE 05/07/17 21:00 05/11/17 09:09 (Lactulose Liq) 30 ml QID PO 05/07/17 18:00 05/11/17 17:05 (Miralax) 17 gm BID OG-TUBE 05/07/17 21:00 05/11/17 09:08 (Albuterol Neb) 2.5 mg Q2HR NEB PRN NEB 05/07/17 13:00 05/13/17 11:09 (Prevacid Odt) 30 mg DAILY NG 05/08/17 09:00 05/13/17 10:00 (Lasix Inj) 40 mg BID@0900,1800 IV PUSH 05/11/17 09:00 05/12/17 17:51 (Levemir Inj) 5 units Q12H SQ 05/11/17 21:00 05/13/17 10:10 (Beneprotein Powder) 1 pack TID G-TUBE 05/12/17 13:00 05/13/17 12:39 Allergies Allergies Coded Allergies No Known Allergies (Unverified04/20/17) Review of Systems All other ROS: Unable to obtain Exam I&O / VS Vital Signs Date Time Temp Pulse Resp B/P (MAP) Pulse Ox O2 Delivery O2 Flow Rate FiO2 05/13/17 15:40 100 40 05/13/17 14:00 87 05/13/17 12:00 80 05/13/17 12:00 40 05/13/17 12:00 98.5 86 25 134/62 (86) 100 05/13/17 11:00 100 40 05/13/17 10:00 80 05/13/17 08:19 99 40 05/13/17 08:00 78 05/13/17 08:00 40 05/13/17 08:00 97.9 78 14 133/63 (86) 100 05/13/17 07:00 100 Mechanical Ventilator 40 05/13/17 06:00 72 05/13/17 04:20 100 40 05/13/17 04:00 97.8 78 16 113/70 (84) 100 05/13/17 04:00 40 05/13/17 04:00 100 100 05/13/17 04:00 78 05/13/17 02:00 80 05/13/17 01:02 100 40 05/13/17 00:00 98.1 80 14 112/55 (74) 100 05/13/17 00:00 40 05/13/17 00:00 80 05/12/17 22:03 100 40 05/12/17 22:00 82 05/12/17 20:00 40 05/12/17 20:00 97.8 86 14 109/58 (75) 100 05/12/17 20:00 86 05/12/17 19:00 100 Mechanical Ventilator 45 05/12/17 18:00 95 05/12/17 17:10 100 40 05/12/17 16:00 97.9 95 16 157/71 (99) 100 05/12/17 16:00 88 05/12/17 16:00 40 Cardiology: Normal rate (Tachycardic) Musculoskeletal: ROM (within normal limits) Exam Comments more alert and follows commands. CN--EOM--intact.. PERRL, Right upper motor neuron CN 7 palsey. MOTOR--twisting frame fixer on left , no film sound engineer on right Objective Radiology Results CT brain--large left MCA stroke with less mass effect Micro and Labs Laboratory Tests Test 05/13/17 07:40 05/13/17 09:00 White Blood Count 10.1 Red Blood Count 2.42 Hemoglobin 7.8 Hematocrit 23.5 Mean Corpuscular Volume 97.0 Mean Corpuscular Hemoglobin 32.3 Mean Corpuscular Hemoglobin Concent 33.3 Red Cell Distribution Width 17.9 Platelet Count 384 Mean Platelet Volume 8.2 Blood Urea Nitrogen 30 Creatinine 0.42 Random Glucose 151 Total Protein 4.9 Calcium Level 7.4 Sodium Level 140 Potassium Level 2.8 2.9 Chloride Level 103 Carbon Dioxide Level 31.7 Anion Gap 5 Estimat Glomerular Filtration Rate 147 Protein Corrected Calcium 8.6 Date/Time Source Procedure Growth Status 05/08/17 04:44 Blood Peripheral Aerobic Blood Culture - Final NO GROWTH IN 5 DAYS Complete 05/08/17 04:44 Blood Peripheral Anaerobic Blood Culture - Final NO GROWTH IN 5 DAYS Complete 05/07/17 21:30 Sputum Endotracheal Gram Stain - Final Complete 05/07/17 21:30 Sputum Culture - Final Serratia Marcescens Complete 05/08/17 04:20 Urine Catheterized Urine Urine Culture - Final NO GROWTH IN 48 HOURS. Complete Marcio Malave PhD May 13, 2017 15:58
--- NOTE | 2017-05-13 16:14 | HHI.IDPN ---
Subjective Subjective Remarks is a 76 y/o CF with PMHx of stroke, diabetes mellitus who was admitted with DKA and a hip fracture for which she underwent ORIF on 04/21. While in hospital recovering, patient developed altered mental status. Due to worsening mental status a stroke alert was called. Head CT showed large left MCA territory ischemic infarct with edema. Patient was transferred to the ICU by family medicine service and critical care consult was requested. At the time of evaluation in [facility], patient was opening her eyes however not following commands and had a dense right hemiplegia. Patient was also evaluated by Dr. Malave from neurology. At baseline, the patient lives with her daughter since her stroke in 2014 and does ambulate however has been having problems with memory and incontinence as well as gait difficulties. She does not feel patient would want intubation or tracheostomy or PEG tube. On 05/01/17 patient was intubated for severe hypoxemic respiratory failure from aspiration pneumonia. She also had a temp of 101 F. Blood culture and sputum culture with staph aureus sputum also growing GNR, WBC count 22,000 now indicating worsening sepsis. 05/06/[address] head with massive left MCA infarction and > 1 cm shift in right handed woman. Meanwhile patient is also being treated for C.glabrata UTI. At the time of my evaluation, patient is in [facility] on ventilator. She spontaneously opens eyes, did not follow commands for me. She underwent a CT A/ P which shows a left side pneumothorax. is placing a pigtail chest tube. She has a moser in place but no central line. ID is consulted for evaluation and Mment of Sepsis, MSSA and aspiration pneumonia, C.glabrata UTI. Overnight events reviewed. afebrile Remains on vent. Opens eyes, not tracking Does not track or follow commands UO ok. Large volume liquid diarrhea, c.diff negative 2/2 Antibiotics Levaquin Flagyl. Lines Line sites with no e.o infection. Past Medical History reviewed Allergies: Coded Allergies: No Known Allergies (Unverified , 04/20/17) Objective . Vital Signs Date Time Temp Pulse Resp B/P (MAP) Pulse Ox O2 Delivery O2 Flow Rate FiO2 05/13/17 15:40 100 40 05/13/17 14:00 87 05/13/17 12:00 80 05/13/17 12:00 40 05/13/17 12:00 98.5 86 25 134/62 (86) 100 05/13/17 11:00 100 40 05/13/17 10:00 80 05/13/17 08:19 99 40 05/13/17 08:00 78 05/13/17 08:00 40 05/13/17 08:00 97.9 78 14 133/63 (86) 100 05/13/17 07:00 100 Mechanical Ventilator 40 05/13/17 06:00 72 05/13/17 04:20 100 40 05/13/17 04:00 97.8 78 16 113/70 (84) 100 05/13/17 04:00 40 05/13/17 04:00 100 100 05/13/17 04:00 78 05/13/17 02:00 80 05/13/17 01:02 100 40 05/13/17 00:00 98.1 80 14 112/55 (74) 100 05/13/17 00:00 40 05/13/17 00:00 80 05/12/17 22:03 100 40 05/12/17 22:00 82 05/12/17 20:00 40 05/12/17 20:00 97.8 86 14 109/58 (75) 100 05/12/17 20:00 86 05/12/17 19:00 100 Mechanical Ventilator 45 05/12/17 18:00 95 05/12/17 17:10 100 40 . Laboratory Tests Test 05/13/17 07:40 White Blood Count 10.1 TH/MM3 Red Blood Count 2.42 MIL/MM3 Hemoglobin 7.8 GM/DL Hematocrit 23.5 % Mean Corpuscular Volume 97.0 FL Mean Corpuscular Hemoglobin 32.3 PG Mean Corpuscular Hemoglobin Concent 33.3 % Red Cell Distribution Width 17.9 % Platelet Count 384 TH/MM3 Mean Platelet Volume 8.2 FL Laboratory Tests Test 05/12/17 04:00 05/13/17 07:40 05/13/17 09:00 Blood Urea Nitrogen 27 MG/DL 30 MG/DL Creatinine 0.41 MG/DL 0.42 MG/DL Random Glucose 177 MG/DL 151 MG/DL Total Protein 4.6 GM/DL 4.9 GM/DL Calcium Level 7.1 MG/DL 7.4 MG/DL Sodium Level 141 MEQ/L 140 MEQ/L Potassium Level 5.2 MEQ/L 2.8 MEQ/L 2.9 MEQ/L Chloride Level 103 MEQ/L 103 MEQ/L Carbon Dioxide Level 31.8 MEQ/L 31.7 MEQ/L Anion Gap 6 MEQ/L 5 MEQ/L Estimat Glomerular Filtration Rate 152 ML/MIN 147 ML/MIN Protein Corrected Calcium 8.5 MG/DL 8.6 MG/DL Imaging Last Impressions Chest X-Ray 05/11/17 0000 Signed Impressions: Service Date/Time: Thursday, May 11, 2017 09:37 - CONCLUSION: 1. Small right pleural effusion. 2. Bilateral mid and lower lung zone predominant air space opacity could represent pulmonary edema given the appearance and distribution. Obdulio Sam MD Abdomen X-Ray 05/10/17 0000 Signed Impressions: Service Date/Time: Wednesday, May 10, 2017 22:08 - CONCLUSION: Tip of Dobbhoff catheter is in the antrum of the stomach. Sage Adler MD Gall Bladder Ultrasound 05/08/17 0000 Signed Impressions: Service Date/Time: May 08:23 - CONCLUSION: Focally unremarkable appearance of the gallbladder Obdulio Chun MD Abdomen/Pelvis CT 05/07/17 0000 Signed Impressions: Service Date/Time: Sunday, May 07, 2017 13:23 - CONCLUSION: 1. Large left pneumothorax. 2. Bilateral lower lobe consolidation and bilateral moderate size pleural effusions. 3. Significant soft tissue thickening of the right lateral chest wall and left gluteus muscle. 4. Mild ascites. The findings were called to Dr. Carney. Deangelo Zamora MD Head CT 05/06/17 0000 Signed Impressions: Service Date/Time: Saturday, May 06, 2017 04:18 - CONCLUSION: 1. Evolving large left-sided MCA territory infarct with minimally improved [id number] subfalcine shift. 2. No intercurrent hemorrhage or other acute abnormality. Alejo De La Vega MD Hip and Pelvis X-Ray 05/05/17 0000 Signed Impressions: Service Date/Time: Friday, May 05, 2017 10:59 - CONCLUSION: Left proximal femur trochanteric/subtrochanteric fracture lucency visualized. Postoperative changes. Choco Mustafa MD Chest CT 04/30/17 0000 Signed Impressions: Service Date/Time: Sunday, April 30, 2017 09:20 - CONCLUSION: 1. Bilateral pulmonary infiltrates more pronounced within the lower lobes with tiny bilateral pleural effusions. Material seen filling the lower lobe bronchi bilaterally either related to purulent material or perhaps mucus plugging. Deangelo Wren Jr., MD Carotid Artery Ultrasound 04/24/17 0000 Signed Impressions: Service Date/Time: April 09:45 - CONCLUSION: 1. No hemodynamically significant carotid artery stenosis. Arnie Middleton MD Hip X-Ray 04/21/17 0000 Signed Impressions: Service Date/Time: Friday, April 21, 2017 11:36 - CONCLUSION: Fluoroscopic images during placement of intramedullary siomara left femur. Benja Ramsey MD Physical Exam GENERAL: Obese, well-developed patient, in no apparent distress. SKIN: No rashes, ecchymoses or lesions. Cool and dry. EYES: Pupils equal round and reactive. Extraocular motions intact. No scleral icterus. No injection or drainage. ENT: orally intubated NECK: Trachea midline. Supple, nontender, no meningeal signs. CARDIOVASCULAR: Regular rate and rhythm without murmurs, gallops, or rubs. RESPIRATORY: Clear to auscultation. Breath sounds equal bilaterally. GASTROINTESTINAL: Abdomen soft, distended. No tenderness in RUQ noted or any quadrants noted. Incontinent of large amount of liquid stool in dignishield bag MUSCULOSKELETAL: Pedal edema. Generalized anasarca. NEUROLOGICAL:. Opens eyes, not tracking Does not track or follow commands Right side hemiplegia. Moves LUE spontaneously Psych: could not be assessed. IV line sites with no e.o infection. : UOP ok, 4K+ cc Assessment & Plan Remarks Sepsis MSSA and Serratia aspiration pneumonia. C.glabrata Cath associated UTI. Left pneumothorax plan on pigtail cath today. Abnormal LFTs: Cholecystitis, Micafungin IV, flagyl Left MCA infarction Abx associated diarrhea, c.diff negative Recs: DC Levaquin DC oral flagyl d/w : normal WBC, no fevers, no secretions. CXR c/w pulm edema. Will sign off please call back if any change in clinical conditions or questions. Jane Saleh MD May 13, 2017 16:14
--- NOTE | 2017-05-13 16:15 | RADRPT ---
EXAM DATE/TIME: 05/13/2017 15:22 [facility] COMPARISON: CHEST SINGLE AP, May 11, 2017, 9:37. INDICATIONS : Chest tube removal. MEDICAL HISTORY : Stroke. Hypertension Diabetes, Pneumothorax. SURGICAL HISTORY : None. ENCOUNTER: Subsequent ACUITY: 1 month PAIN SCORE: 0/10 LOCATION: Bilateral chest FINDINGS: A single AP semierect view of the chest was obtained again demonstrates endotracheal tube in place wi th the tip 2-3 cm above the valerie. A nasogastric tube is again noted coursing through the esophagus and into the stomach. The lungs are better aerated with interval decrease in the bilateral patchy opa city. A left costophrenic angle is mildly blunted and the left hemidiaphragm remains partially obscur ed. The heart size is at the upper limits of normal. Multiple overlying electrocardiogram leads are p resent. CONCLUSION: 1. Increased aeration with apparent decrease in pulmonary opacities. 2. Abnormal opacity remains at the left lung base. Jose R Casanova MD on May 13, 2017 at 16:12 Board Certified Radiologist. This report was verified electronically.
--- NOTE | 2017-05-13 17:13 | HHI.HCPN ---
Reason for visit a. To assist with evaluation and management of symptoms including: Debility and pain. b. To assist medical decision maker(s) with: better understanding of current medical conditions; weighing benefits/burdens of medical treatment options; making medical treatment decisions. . (Ashly Steven) Subjective/Interval History Mrs. Hein date a 76-year-old female with a past medical history of hypertension , diabetes mellitus and CVA who presented to the ED on 04/20/17 via EMS for evaluation of after a fall. Upon ED admission, random glucose 559. Patient underwent Left hip reduction and intramedullary nail fixation on 04/21/17. Clinical course complicated by large left MCA infarct with diffuse edema throughout the left MCA distribution. Neurology, Dr. Malave consulted. Patient not a candidate for intervention, not a candidate for IV TPA. As per neurology "[place] 4Id the prognosis with a stroke of the size is poor". Palliative care consulted for further clarifications of goals of care given poor prognosis. Patient remains in ICU, intubated on mechanical ventilation, day #13. Patient remains intubated, daily CPAP trial. Patient currently on 40%. Chest x-ray on revealed increased aeration with apparent decrease in pulmonary opacities and abnormal opacity remains in the left lung base. Minimally responsive to verbal or tactile stimuli during my visit, not following any commands. Head CT on 05/13/17 revealed enlarged left MCA distribution infarct with 5 mm [id number] shift. Laboratory workup on 05/13/17 revealing WBC 10.1 hemoglobin 2.42, platelet count 384, potassium 2.8, BUN/creatinine 30 creatinine 0.42. Remains afebrile, stable hemodynamically. ID following. Case discussed with Dr. Ranjan Saleh, Dr. Pedraza and bedside RN. . Family/friend interactions Bedside conversation with patient's daughter. Dr. Ranjan Saleh and Dr. Pedraza provided medical updates to daughter. Reviewed overall poor prognosis for a meaningful neurological recovery or prolonged survival. Discussed treatment options to include continuation of aggressive management with tracheostomy and PEG tube placement versus compassionate withdrawal life support. Ongoing emotional support and active listening provided to patient's daughter. She was encouraged to continue goals of care conversation with additional family members. All questions were answered in great detail. . (Ashly Steven) Advance Directives Living Will: Never completed Health Care Surrogate: Never completed Durable Power of Polystyrene Molding Machine Tender: Never completed (Ashly Steven) Advance Directive Specifics Health Care Surrogate(s): No advance directives completed. As per [place] statute, healthcare proxy decision making falls to patient's only daughter Norma Salvador. . Documented care wishes: No living will completed. . Significant change in goals: Goals of care remain unchanged. . (Ashly Steven) Objective Vital Signs Date Time Temp Pulse Resp B/P (MAP) Pulse Ox O2 Delivery O2 Flow Rate FiO2 05/13/17 15:40 100 40 05/13/17 14:00 87 05/13/17 12:00 80 05/13/17 12:00 40 05/13/17 12:00 98.5 86 25 134/62 (86) 100 05/13/17 11:00 100 40 05/13/17 10:00 80 05/13/17 08:19 99 40 05/13/17 08:00 78 05/13/17 08:00 40 05/13/17 08:00 97.9 78 14 133/63 (86) 100 05/13/17 07:00 100 Mechanical Ventilator 40 05/13/17 06:00 72 05/13/17 04:20 100 40 05/13/17 04:00 97.8 78 16 113/70 (84) 100 05/13/17 04:00 40 05/13/17 04:00 100 100 05/13/17 04:00 78 05/13/17 02:00 80 05/13/17 01:02 100 40 05/13/17 00:00 98.1 80 14 112/55 (74) 100 05/13/17 00:00 40 05/13/17 00:00 80 05/12/17 22:03 100 40 05/12/17 22:00 82 05/12/17 20:00 40 05/12/17 20:00 97.8 86 14 109/58 (75) 100 05/12/17 20:00 86 05/12/17 19:00 100 Mechanical Ventilator 45 05/12/17 18:00 95 05/12/17 17:10 100 40 Intake & Output 05/13/17 05/13/17 07:00 19:00 Intake Total 730 ml Output Total 1300 ml Balance -570 ml IV Total 54 ml Tube Feeding 676 ml Output Urine Total 1300 ml Stool Total 0 ml Physical Exam CONSTITUTIONAL/GENERAL: This is an elderly female resting in bed. Minimally responsive to verbal or tactile stimuli. Orally intubated on mechanical ventilation. Not sedated. TUBES/LINES/DRAINS: PIV's. Dobbhoff to right nare. ETT, Leavitt catheter, left soft wrist restraint, Dignishield SKIN: No jaundice, rashes, or lesions. Ecchymoses on upper extremities. Skin temperature appropriate. Not diaphoretic. Surgical incision to left hip, open to air. Opening blister to right inner thigh HEAD: Atraumatic. Normocephalic. EYES: Pupils equal and round and reactive. No scleral icterus. No injection or drainage. ENT: Unable to evaluate hearing secondary to clinical condition. Nose without bleeding or purulent drainage. Moist oral mucosa. Dobbhoff to right nare. NECK: Trachea midline. Supple. CARDIOVASCULAR: Regular rate and rhythm. Peripheral pulses symmetric. RESPIRATORY/CHEST: Symmetric, orally intubated on mechanical ventilation. Coarse breath sounds GASTROINTESTINAL: Abdomen soft, round, mildly distended. Bowel sounds present. GENITOURINARY: Without palpable bladder distension. MUSCULOSKELETAL: Extremities without clubbing, cyanosis. Edema to all 4 extremities. NEUROLOGICAL: Minimally responsive to verbal or tactile stimuli. Not sedated. Opening eyes. Not following commands. PSYCHIATRIC: Unable to evaluate secondary to clinical condition. Appears calm. . (Ashly Steven) Diagnostic Tests Laboratory Laboratory Tests Test 05/11/17 04:55 05/11/17 17:23 05/12/17 04:00 05/13/17 07:40 Blood Urea Nitrogen 29 MG/DL (7-18) 27 MG/DL (7-18) 30 MG/DL (7-18) Creatinine 0.37 MG/DL (0.50-1.00) 0.41 MG/DL (0.50-1.00) 0.42 MG/DL (0.50-1.00) Random Glucose 200 MG/DL (74-106) 177 MG/DL (74-106) 151 MG/DL (74-106) Total Protein 3.1 GM/DL (6.4-8.2) 4.6 GM/DL (6.4-8.2) 4.9 GM/DL (6.4-8.2) Albumin 0.7 GM/DL (3.4-5.0) Calcium Level 6.6 MG/DL (8.5-10.1) 7.1 MG/DL (8.5-10.1) 7.4 MG/DL (8.5-10.1) Alkaline Phosphatase 549 U/L (45-117) Aspartate Amino Transf (AST/SGOT) 30 U/L (15-37) Alanine Aminotransferase (ALT/SGPT) 14 U/L (10-53) Total Bilirubin 0.6 MG/DL (0.2-1.0) Direct Bilirubin 0.2 MG/DL (0.0-0.2) Sodium Level 145 MEQ/L (136-145) 141 MEQ/L (136-145) 140 MEQ/L (136-145) Potassium Level 3.7 MEQ/L (3.5-5.1) 5.2 MEQ/L (3.5-5.1) 2.8 MEQ/L (3.5-5.1) Chloride Level 106 MEQ/L (98-107) 103 MEQ/L (98-107) 103 MEQ/L (98-107) Carbon Dioxide Level 35.5 MEQ/L (21.0-32.0) 31.8 MEQ/L (21.0-32.0) 31.7 MEQ/L (21.0-32.0) Anion Gap 4 MEQ/L (5-15) 6 MEQ/L (5-15) 5 MEQ/L (5-15) Estimat Glomerular Filtration Rate 171 ML/MIN (>89) 152 ML/MIN (>89) 147 ML/MIN (>89) Protein Corrected Calcium 8.9 MG/DL (8.5-10.1) 8.5 MG/DL (8.5-10.1) 8.6 MG/DL (8.5-10.1) Indirect Bilirubin 0.4 MG/DL (0.0-0.8) Stool C. difficile Toxin (PCR) NEGATIVE (NEGATIVE) Stl C. difficile Toxin Epiderm 027 PRESUMPTIVE NEGATIVE White Blood Count 10.1 TH/MM3 (4.0-11.0) Red Blood Count 2.42 MIL/MM3 (4.00-5.30) Hemoglobin 7.8 GM/DL (11.6-15.3) Hematocrit 23.5 % (35.0-46.0) Mean Corpuscular Volume 97.0 FL (80.0-100.0) Mean Corpuscular Hemoglobin 32.3 PG (27.0-34.0) Mean Corpuscular Hemoglobin Concent 33.3 % (32.0-36.0) Red Cell Distribution Width 17.9 % (11.6-17.2) Platelet Count 384 TH/MM3 (150-450) Mean Platelet Volume 8.2 FL (7.0-11.0) Test 05/13/17 09:00 Potassium Level 2.9 MEQ/L (3.5-5.1) (Ashly Steven) Result Diagram: 05/13/17 0740 05/13/17 0900 Microbiology Microbiology Date/Time Source Procedure Growth Status 05/08/17 04:44 Blood Peripheral Aerobic Blood Culture - Final NO GROWTH IN 5 DAYS Complete 05/08/17 04:44 Blood Peripheral Anaerobic Blood Culture - Final NO GROWTH IN 5 DAYS Complete 05/07/17 21:30 Sputum Endotracheal Gram Stain - Final Complete 05/07/17 21:30 Sputum Culture - Final Serratia Marcescens Complete 05/08/17 04:20 Urine Catheterized Urine Urine Culture - Final NO GROWTH IN 48 HOURS. Complete Imaging Last [address] 05/13/17 0600 Signed Impressions: Service Date/Time: Saturday, May 13, 2017 04:07 - CONCLUSION: 1. Evolving large left MCA distribution infarct with 5 mm left to right shift, improved since prior exam. Jaime Velasquez MD Chest X-Ray 05/13/17 0000 Signed Impressions: Service Date/Time: Saturday, May 13, 2017 15:22 - CONCLUSION: 1. Increased aeration with apparent decrease in pulmonary opacities. 2. Abnormal opacity remains at the left lung base. Jose R Casanova MD Procedures * 05/08/17 -left-sided chest tube/pigtail * 04/30/17 -endotracheal intubation * 04/21/17 -Left hip reduction and intramedullary nail fixation . (Ashly Steven) Assessment and Plan Disease Oriented Problem List: (1) Acute respiratory failure (2) Acute CVA (cerebrovascular accident) (3) Pneumonia (4) Atrial fibrillation with RVR (5) Hypertension (6) Hip fracture Symptom Scale: (1) Pain 0-10 Scale: Unable to quantify Comment: Secondary to recent surgical intervention (2) Debility 0-10 Scale: Unable to quantify Comment: Progressive. (3) Shortness of breath 0-10 Scale: Unable to quantify Comment: Increased oxygen requirement. Currently on nonrebreather mask at 15 L. Pertinent Non-Medical Issues Psychosocial: Patient is originally from [facility]. Residing in [place] up until 2013 she moved to [place] to live with only daughter Trice. Patient is a , in 2006. Spiritual: No catholic affiliation. Legal: No advance directives completed. Ethical issues impacting care: Patient unable to participating in medical decision-making secondary to clinical condition. Patient's daughter acting as healthcare proxy decision maker. . Important Contacts Daughter Norma Salvador . . Prognosis Mrs. Hein needs a 76-year-old female with a past medical history of hypertension, diabetes mellitus and prior CVA. Presented with left hip fracture , underwent ORIF. Clinical course complicated by large left MCA infarct with edema. Overall prognosis is poor for a meaningful neurological recovery or long -term survival given acute stroke, chronic ongoing comorbidities and advanced age. Patient appears hospice appropriate should family elects comfort-directed care. . Code Status: Full Code Plan * CODE STATUS: FULL CODE. * HEALTHCARE DECISION-MAKING: Patient unable to participate in medical decision- making secondary to clinical condition given severe large stroke. No advance directives completed, patient is . As per [place] statute, healthcare proxy decision-making falls to patient's only daughter Trice Salvador. * GOALS OF CARE: 05/13/17 -daughter electing to continue aggressive management to include full code. Currently considering continuation of aggressive management to include trach and PEG vs compassionate withdrawal of life support/ hospice. * Bedside conversation with daughter, Dr. Haider Saleh, Dr. Pedraza and palliative care. Medical update provided. Discussed overall poor prognosis for a meaningful neurological recovery or long-term survival given large acute stroke , chronic ongoing comorbidities, acute complications and advanced age. Discussed continuation of aggressive management to include tracheostomy and PEG tube versus compassionate withdrawal life support. Daughter was encouraged to continue goals of care conversation with additional family members. * SYMPTOMS: = Shortness of breath, multifactorial. Secondary to altered mental status/CVA, pneumonia, lethargy. Intubated and placed on mechanical ventilation. = Pain, secondary to recent surgical intervention. Morphine IV available as needed. = Debility, progressive. Likely to continue to worsen given recent acute stroke. * Case has been discussed with Dr. Haider Saleh, Dr Pedraza and bedside RN. * Ongoing emotional support and active listening provided. * Palliative care contact information has been provided to patient's daughter. * Palliative care will continue to follow-up for further clarifications of goals of care as patient's clinical condition continues to evolve. . (Ashly Steven) Time Spent Total Floor Time (mins): 46 (Total time to include review of medical records, physical exam, goals of care conversation with patient's daughter, case discussion with Dr. Ranjan Saleh, Dr. Pedraza and bedside RN.) >50% Counseling/Coord of Care: Yes (Ashly Steven) Attestation To help prompt me to consider important information that might be impacting today's encounter and assessment, information from prior notes written by myself or my colleagues may have been "brought forward" into today's note. My signature on this note, however, is an attestation that I personally performed the exam, history, and/or decision-making noted today, and, unless otherwise indicated, the interactions with patient, family, and staff as well as the review of records all occurred today. I also attest that the listed assessment and stated plan reflect my best clinical judgment today based on the combination of historical information, prior notes, and today's exam/ interactions. When time spent is documented, it refers only to time spent today by the signer, or if indicated, combined time spent today by collaborating physician/nurse practitioner. . (Ashly Steven) Collaborating MD Comments Chart reviewed. Case discussed with palliative care CHILDREN'S ATTENDANT. Above note reviewed and I concur. . (Vamsi Minaya MD) Ashly Steven May 13, 2017 17:13 Vamsi Minaya MD Jun 08, 2017 11:42
--- NOTE | 2017-05-13 18:48 | PD.WCN.NOT ---
Wound Consult Description: Received consult for pressure ulcer to sacral area from Doctor Jose R Bennett MD R2 Communicated with: GREGORY Onofre [facility] and Doctor Carney Recommendation: 1.Please cleanse buttock, coccyx and sacral areas gently with soap and water and pat dry. Apply skin prep to periwound of coccyx and to unopened DTI, before applying small bordered gauze in place change daily or PRN if saturated or dislodged 2. Order pressure relieving support surface mattress or bed such as halifax airapy or K-4 bed from [facility]. 3. Continue to turn patient every 2 hours or PRN for comfort. Additional Information: Patient seen on [address] [place] [address] for evaluation of sacral pressure injury. Positioned patient with the assistance of Aga JENKINS [facility] and job specification writer to L side for wound assessment. Noted non blanchable area of deep purple discoloration opening to partial thickness skin loss over coccyx area, indicating a deep tissue injury that is opening to partial thickness skin loss. Periwound is unremarkable.Wound measures ~1cm x ~2cm . Dignishield is in place for incontinence management.Sprayed coccyx area with skin prep spray and left open to air. GREGORY Yung to apply small bordered gauze dressing in place when supplies are obtained. Agatha Hudson [facility] May 13, 2017 18:48
[2017-05-14] VITALS (19 sets, daily range): BP systolic 98–155; BP diastolic 50–80; PULSE 72–94; RESP 14–25; TEMP 97.7–99.3; O2SAT 93–100
[2017-05-14 06:05] LABS: BICARBONATE 32.6 MEQ/L (21.0-32.0); CALCIUM 7.8 MG/DL (8.5-10.1); CREATININE 0.37 MG/DL (0.50-1.00)
[2017-05-14] MEDS: INSULIN ASPART SUPPLEMENTAL SCALE SQ SCH ×5 (06:46→21:00)
[2017-05-14] MEDS: RESP: ALBUTEROL 2.5 MG/3 ML NEB (PRN) NEB (08:36)
[2017-05-14] MEDS: SODIUM CHLORIDE 0.9% FLUSH 5 ML FLUSH IV FLUSH SCH ×2 (09:00→21:00)
[2017-05-14] MEDS: DOCUSATE SODIUM 100 MG/10 ML UDC PO SCH ×2 (09:00→20:34)
[2017-05-14] MEDS: SENNOSIDES SYRUP 8.8 MG/5 ML CUP OG-TUBE SCH ×2 (09:00→20:33)
[2017-05-14] MEDS: LACTULOSE SYRUP 20 GM/30 ML CUP PO SCH ×4 (09:00→20:42)
[2017-05-14] MEDS: POLYETHYLENE GLYCOL 17 GM PKG OG-TUBE SCH ×2 (09:00→20:33)
[2017-05-14] MEDS: ENOXAPARIN SODIUM 40 MG/0.4 ML SYRINGE SQ SCH (09:55)
[2017-05-14] MEDS: FUROSEMIDE 40 MG/4 ML VIAL IV PUSH SCH ×2 (09:56→18:23)
[2017-05-14] MEDS: LANSOPRAZOLE SOLUTAB 30 MG TAB NG SCH (09:56)
[2017-05-14] MEDS: ASPIRIN 325 MG TAB DOBHOFF SCH (09:56)
[2017-05-14] MEDS: CHOLECALCIFEROL (VIT D3) 5000 UNIT CAP PO SCH (09:56)
[2017-05-14] MEDS: CALCIUM/VITAMIN D 250 MG/125 U TAB PO SCH ×3 (09:56→18:00)
[2017-05-14] MEDS: BENEPROTEIN POWDER 1 PACK G-TUBE SCH ×3 (09:57→18:15)
[2017-05-14] MEDS: INSULIN DETEMIR 100 UNITS/ML VIAL SQ SCH ×2 (09:59→21:14)
--- NOTE | 2017-05-14 10:11 | HHI.CCPN ---
Subjective Remarks/Hospital Course 04/24: 76-year-old female with a medical history significant for prior stroke, diabetes mellitus who was admitted with DKA and a hip fracture for which she underwent ORIF on 04/21. Patient developed altered mental status and was last noted to be okay around 5:30 AM. Subsequently there was a change in her mental status and she was noted to not be moving her right side for which stroke alert was called. Head CT showed large left MCA territory ischemic infarct with edema. Patient was transferred to the ICU by family medicine service in the critical care consult was requested. I evaluated the patient following arrival to the ICU. At that time she was laying in bed with her eyes open however not following commands and had a dense right hemiplegia. Patient was also evaluated by Dr. Malave from neurology. I further discussed current event with patient's daughter following her arrival to the ICU. Per the daughter patient has been living with her since her stroke in 2014 and does ambulate however has been having problems with memory and incontinence as well as gait difficulties. She does not feel patient would want intubation or tracheostomy or PEG tube. 04/25: Patient remains encephalopathic, awake though not following commands consistently. Dense right hemiplegia persists. Appears to be awake enough to protect airway currently. Patient's daughter rescinded DNR and made a full code last evening. 04/26: Remains encephalopathic, not following commands. On Dobbhoff for tube feeds at 30 cc per hour. Had urinary retention and drained 2 L of urine after placing Leavitt catheter today. CT head done this morning with large left MCA territory infarct with left to right midline shift and significant cerebral edema. Hyperglycemia noted. Patient given mannitol earlier for increasing cerebral edema. 04/27: Remains encephalopathic, not following commands. On Dobbhoff tube feeds at 30 cc per hour. When into A. fib with RVR last night which responded with Lopressor 5 mg IV 1 dose. 04/28: Remains encephalopathic, arousable, not following commands. Moves left upper extremity spontaneously. Tolerating Dobbhoff tube feeds. Remains on nasal cannula. 04/29: Encephalopathic, eyes be arousable, moves left upper extremity spontaneously and occasionally opens eyes. Dense right hemiplegia and aphasia persists. On nasal cannula. Dobbhoff tube feeds being advanced. Patient was transfused 1 unit PRBCs yesterday. Urine culture with yeast from yesterday for which fluconazole being started. Had brief run of A. fib with RVR which improved with Lopressor IV, currently in sinus rhythm. 04/30: Worsening hypoxemic respiratory failure, currently on partial nonrebreather. Remains lethargic. WBC count increased from 14.6 today 20.7. Chest x-ray shows bilateral worsening infiltrates and small pleural effusions. Sodium 154, weight up by 8 KG. Albumin 1 mg Bumex 1. Also one dose of albumin. Remains in sinus tachycardia. Tmax 101.3 05/01: Patient was intubated yesterday for lack of airway protection, and severe hypoxemic respiratory failure from aspiration pneumonia involving multiple lobes. Patient is on the vent lethargic, no spontaneous eye opening. Chest x- ray remains unchanged. Remains intermittently febrile Tmax 101.3. WBC count improving 05/02: Remains critically ill with no improvement in mental status. Spiking fever of 101.7. Blood culture and sputum culture with staph aureus sputum also growing GNR, WBC count 22,000 now indicating worsening sepsis. Daughter still requesting aggressive care. Palliative care is following 05/03: S/P large area dominant hemisphere CVA. No neurological improvement. Now with pneumonia (infiltrate, fever, leukocytosis) and appropriate abx coverage. She will have a hard time surviving the hip fx, CVA, and pneumonia. Palliative Care needs to be a mainstay of our plan. 05/04: No improvement in neuro status. Sputum C&S allows us to narrow abx coverage to levaquin alone. Lungs remain quite congested. Enteral nutrition tolerated. 05/05: No improvement in neuro status. Moves left arm spontaneously. Flaccid right side. Unresponsive. Persistent mild hypoglycemia - will cut Levemir 50%. Abdomen more distended, check KUB. 05/06: CT head with massive left MCA infarction and > 1 cm shift in right handed woman. She opens eyes, does not track. 05/07: Patient open eyes. Attempts to respond. Omani speaking. Tolerating tube feeds. Positive bowel movement. Volume overloaded. Subjective 05/08: Tmax 99.4. Potassium being replaced. Ultrasound gallbladder currently pending. Transaminases are trending downward. Gently diurese. 05/09: Alk phos decreasing. Remains with good urine output. Neurological status not improving. 05/10: Fixed neuro deficit unchanged. Profound CVA. 05/11: Appears to track with eyes today. No improvement in motor function. Remains very edematous, diuretics doubled. 05/12: Continued thick secretions. Afebrile, leukocytosis resolved. 05/13: CT head with completed left MCA stroke, persistent edema and 5 mm shift away. Does not last long on SBTs - major decision now is trach/PEG. 05/14: Daughter is deciding about trach and PEG. I have been pessimistic with her about chances for a meaningful recovery. Objective Vital Signs Date Time Temp Pulse Resp B/P (MAP) Pulse Ox O2 Delivery O2 Flow Rate FiO2 05/14/17 09:45 50 05/14/17 07:35 99 05/14/17 06:00 74 05/14/17 04:00 98.5 14 148/80 (102) 05/13/17 19:00 Mechanical Ventilator Intake and Output 05/14/17 05/14/17 05/15/17 08:00 16:00 00:00 Intake Total 767 ml Output Total 625 ml Balance 142 ml Result Diagram: 05/13/17 0740 05/14/17 0423 Imaging Last Impressions Chest X-Ray 05/07/17 0400 Signed Impressions: Service Date/Time: Sunday, May 07, 2017 04:38 - CONCLUSION: 1. Stable Low-lying ETT with tip approximately 1 cm above the valerie. 2. Mild interval progression of bilateral airspace consolidation exaggerated by patient rotation. 3. Increased small left pleural effusion. Alejo De La Vega MD Abdomen/Pelvis CT 05/07/17 0000 Signed Impressions: Service Date/Time: Sunday, May 07, 2017 13:23 - CONCLUSION: 1. Large left pneumothorax. 2. Bilateral lower lobe consolidation and bilateral moderate size pleural effusions. 3. Significant soft tissue thickening of the right lateral chest wall and left gluteus muscle. 4. Mild ascites. The findings were called to Dr. Carney. Deangelo Zamora MD Head CT 05/06/17 0000 Signed Impressions: Service Date/Time: Saturday, May 06, 2017 04:18 - CONCLUSION: 1. Evolving large left-sided MCA territory infarct with minimally improved [id number] subfalcine shift. 2. No intercurrent hemorrhage or other acute abnormality. Alejo De La Vega MD Abdomen X-Ray 05/06/17 0000 Signed Impressions: Service Date/Time: Saturday, May 06, 2017 17:42 - CONCLUSION: Dobbhoff feeding tube tip near the gastroduodenal junction. Obdulio Simms MD Hip and Pelvis X-Ray 05/05/17 0000 Signed Impressions: Service Date/Time: Friday, May 05, 2017 10:59 - CONCLUSION: Left proximal femur trochanteric/subtrochanteric fracture lucency visualized. Postoperative changes. Chcoo Mustafa MD Chest CT 04/30/17 0000 Signed Impressions: Service Date/Time: Sunday, April 30, 2017 09:20 - CONCLUSION: 1. Bilateral pulmonary infiltrates more pronounced within the lower lobes with tiny bilateral pleural effusions. Material seen filling the lower lobe bronchi bilaterally either related to purulent material or perhaps mucus plugging. Deangelo Wren Jr., MD Carotid Artery Ultrasound 04/24/17 0000 Signed Impressions: Service Date/Time: April 09:45 - CONCLUSION: 1. No hemodynamically significant carotid artery stenosis. Arnie Middleton MD Hip X-Ray 04/21/17 0000 Signed Impressions: Service Date/Time: Friday, April 21, 2017 11:36 - CONCLUSION: Fluoroscopic images during placement of intramedullary siomara left femur. Benja Ramsey MD Objective Remarks Gen: 76-year-old female HEENT: Pallor present. Moderate dark ET tube secretions Neck: Orally intubated. Chest/pulmonary: Scattered rhonchi. Chest tube d/c'd Cardiovascular: RRR. S1, S2, without murmur, rub GI/abdomen: Distended. Nontender. Active bowel sounds are present. Extremities: Warm bilaterally, anasarca 2+ upper and 2+ lower extremity edema. Incision sites over left hip, thigh ORIF site clean dry and intact. Neuro: Intubated, on no sedation. No eye opening today. Dense right hemiplegia noted. Withdraws left upper extremity, Withdraws LLE. No change. Pupils 2 mm, react. Date of Insertion: May 02, 2017 A/P Assessment and Plan Neuro/Psych: Left MCA CVA - 12 mm of [id number] subfalcine herniation - right-sided hemiplegia Acute encephalopathy History CVA Follow neuro status closely. Continue Aspirin 325 mg by mouth daily Patient was not a candidate for thrombolysis per discussion with neurology and radiology. Repeat head CT 05/05 showed slight improvement in the midline shift and mass effect Neurosurgery consulted 04/30- Dr. López, recommended conservative management Neurology following - Dr. Malave On morphine 1-2 every 3 hours when necessary pain Cardiovascular: Hypertension IV fluids currently on hold due to edema As needed Antihypertensives to keep systolic blood pressure less than to 180 mmHg Echocardiogram 04/24 - EF 50 to 55%. Mild concentric LVH. Pulmonary: Acute hypoxic respiratory failure - aspiration possible HCAP Large left pneumothorax status post #10 [place] chest tube 05/07 PRVC 14/400/09/08/49 Ventilator bundle Ipratropium/albuterol aerosols every 6 hours with albuterol aerosols every 2 hours. Dyspnea Intubated on 04/30/17 for worsening hypoxemic respiratory failure, aspiration pneumonia Chest x-ray shows 05/08 revealed increasing infiltrate/small pleural effusion left side. Right-sided chest tube in place. CT of the chest 04/30/17 showed severe bibasilar consolidation, and evidence of aspiration Daily SBTs. GI/liver: Elevated transaminases Hypoalbuminemia Moderate to severe protein calorie malnutrition Dobbhoff for tube feedings and medications. Continue tube feeding with Glucerna 1.5 goal 45 cc an hour On hold 05/08 due to possible cholecystostomy tube placement depending on ultrasound gallbladder Lansoprazole 30 mg daily for GI regimen Docusate sodium 100 twice a day, Senokot 8.6 twice a day, polyethylene glycol 17 grams twice a day and lactulose 30 cc 4 times a day Evaluate CT abdomen/pelvis 05/07 - mild ascites. Large left hemothorax. Right greater than left pleural effusion. Avoid hepatotoxic drugs LFTs improving Endocrine: Diabetes mellitus Detemir 20 units subcutaneous every 12 hours. Currently hold while nothing by mouth Sliding scale insulin Accu-Cheks to maintain euglycemia/low regimen Holding glimepiride 4 mill grams by mouth daily /Renal/FEN: Hypopotassemia Strict intake output, monitor and replete electrolytes, follow BUN/creatinine. Leavitt catheter placed for urinary retention on 04/26. Heme: Chronic Rivaroxaban use Leukocytosis Normocytic anemia Thrombocytosis Follow CBC and coags. On subcutaneous enoxaparin Hemoglobin currently stable. No indications for transfusion of blood proximally at this time ID: MSSA bacteremia Serratia/staph aureus pneumonia C glabrata UTI Pertinent cultures Urine culture 04/26/17 sofie glabrata Blood culture 04/29/17 1 out of 4 bottles staph aureus Sputum culture 04/30/17 staph aureus and Serratia. Blood cultures 2, sputum 1 and urine 05/08 pending -> Serratia On iv levaquin, oral flagyl MSK: Left Intertroch Hip Fx s/p IMN - POD 14 Vitamin D deficiency WBAT DC ginger today redress with Xeroform/Primapore Prophylaxis: SCDs. Enoxaparin 40 mg sq daily-cleared by Dr. Malave GI - lansoprazole Overall impression: Devastating CVA. No improvement. Lengthy talk involving daughter and Palliative Care service yesterday. I re-enforced poor prognosis. Charles Pedraza MD May 14, 2017 10:11
--- NOTE | 2017-05-14 14:05 | HHI.PR ---
Subjective Subjective Comments Intubated. No sedation. Allergies: Coded Allergies: No Known Allergies (Unverified , 04/20/17) Review of Systems All other ROS: Unable to obtain Exam I&O / VS Vital Signs Date Time Temp Pulse Resp B/P (MAP) Pulse Ox O2 Delivery O2 Flow Rate FiO2 05/14/17 12:00 98.2 75 25 98/50 (66) 100 05/14/17 12:00 45 05/14/17 12:00 75 05/14/17 11:00 93 50 05/14/17 10:00 94 05/14/17 09:45 50 05/14/17 08:00 98.6 73 15 129/61 (83) 95 05/14/17 08:00 73 05/14/17 08:00 40 05/14/17 07:35 99 35 05/14/17 07:00 100 Mechanical Ventilator 40 05/14/17 06:00 74 05/14/17 04:20 98 40 05/14/17 04:00 98.5 80 14 148/80 (102) 97 05/14/17 04:00 40 05/14/17 04:00 80 05/14/17 02:00 79 05/14/17 01:10 95 40 05/14/17 00:00 98.3 72 14 122/59 (80) 98 05/14/17 00:00 72 05/14/17 00:00 40 05/13/17 22:06 99 40 05/13/17 22:00 75 05/13/17 20:00 40 05/13/17 20:00 97.9 76 14 129/81 (97) 98 05/13/17 20:00 73 05/13/17 19:02 95 40 05/13/17 19:00 99 Mechanical Ventilator 40 05/13/17 18:00 75 05/13/17 16:00 40 05/13/17 16:00 99.1 76 14 131/62 (85) 100 05/13/17 16:00 76 05/13/17 15:40 100 40 General: Intubated, No acute distress Cardiovascular: Normal rate (Tachycardic) Musculoskeletal: ROM (within normal limits) Psychiatric: Other (No restlessness or agitation noted) Neurologic: Pupils (pupils reactive bilaterally), EOM (not focusing or tracking to voice) Motor: Right Upper Extremity (no spontaneous or voluntary movement), Left Upper Extremity (no spontaneous or voluntary movement), Right Lower Extremity ( no spontaneous or voluntary movement), Left Lower Extremity (no spontaneous or voluntary movement) Clonus: Negative Objective Micro and Labs Laboratory Tests Test 05/13/17 23:23 05/14/17 04:23 Potassium Level 3.7 3.5 Blood Urea Nitrogen 35 Creatinine 0.37 Random Glucose 145 Calcium Level 7.8 Sodium Level 143 Chloride Level 105 Carbon Dioxide Level 32.6 Anion Gap 5 Estimat Glomerular Filtration Rate 171 B-Type Natriuretic Peptide 594 Date/Time Source Procedure Growth Status 05/08/17 04:44 Blood Peripheral Aerobic Blood Culture - Final NO GROWTH IN 5 DAYS Complete 05/08/17 04:44 Blood Peripheral Anaerobic Blood Culture - Final NO GROWTH IN 5 DAYS Complete 05/07/17 21:30 Sputum Endotracheal Gram Stain - Final Complete 05/07/17 21:30 Sputum Culture - Final Serratia Marcescens Complete 05/08/17 04:20 Urine Catheterized Urine Urine Culture - Final NO GROWTH IN 48 HOURS. Complete Assessment and Plan Diagnosis: (1) Acute ischemic left middle cerebral artery (MCA) stroke ICD Codes: I63.512 - Cerebral infarction due to unspecified occlusion or stenosis of left middle cerebral artery Status: Acute (2) Right hemiplegia ICD Codes: G81.91 - Hemiplegia, unspecified affecting right dominant side Status: Acute (3) Aphasia ICD Codes: R47.01 - Aphasia Status: Acute (4) Hip fracture ICD Codes: S72.009A - Fracture of unspecified part of neck of unspecified femur , initial encounter for closed fracture Status: Acute Qualifiers: Encounter type: subsequent encounter Fracture type: closed Laterality: left Assessment 1. Left middle cerebral artery stroke with right hemiplegia, aphasia and dysphagia: Trach and PEG are being considered 2. Left intertrochanteric hip fracture status post IM nail 04/21/17 3. Diabetes mellitus with DKA on admission 4. Hypertension 5. Previous stroke Plan 1. Physical therapy providing range of motion. 2. Occupational therapy is on hold 3. Speech therapy following for swallow evaluation if extubated. Currently nothing by mouth 4. SCDs in place for DVT prophylaxis 5. Reposition q 2 hours and monitor skin integrity. Wound care is following sacral and coccygeal area 6. Palliative care following and case management is working with family. 7. Will continue to follow while hospitalized and at discharge as appropriate Marychuy,Li C. MD May 14, 2017 14:05
--- NOTE | 2017-05-14 16:42 | HHI.PR ---
Review/Management Diagnosis large left MCA stroke Diagnosis/Plan: Subjective Subjective Comments No acute events reported Active Medications Current Medications Medications (Trade) Dose Ordered Sig/Zeferino Route Start Time Stop Time Status Last Admin (Zofran Inj) 4 mg Q6H PRN IV PUSH 04/20/17 15:00 04/30/17 02:28 (Morphine Inj) 1 mg Q3H PRN IV 04/20/17 17:15 04/28/17 18:15 (Morphine Inj) 2 mg Q3H PRN IV 04/20/17 17:15 04/30/17 02:29 (Narcan Inj) 0.4 mg UNSCH PRN IV 04/20/17 17:15 (Milk Of Magnesia Liq) 30 ml Q12H PRN PO 04/20/17 20:30 (Senokot) 17.2 mg Q12H PRN PO 04/20/17 20:30 04/23/17 22:55 (Dulcolax Supp) 10 mg DAILY PRN RECTAL 04/20/17 20:30 (Oscal-D 250-125) 250 mg TID PO 04/21/17 13:00 05/14/17 12:11 (Vitamin D3) 5,000 units DAILY PO 04/22/17 09:00 05/14/17 09:56 (NS Flush) 2 ml BID IV FLUSH 04/24/17 21:00 05/14/17 09:00 (NS Flush) 2 ml UNSCH PRN IV FLUSH 04/24/17 09:30 (Glucagon Inj) 1 mg UNSCH PRN IM/SQ 04/24/17 18:15 (Aspirin) 325 mg DAILY DOBHOFF 04/27/17 09:00 05/14/17 09:56 (D50w (Syr) Inj) 25 ml UNSCH PRN IV 04/26/17 20:30 05/11/17 01:35 (Lopressor Inj) 5 mg Q5M PRN IV PUSH 04/27/17 04:00 05/03/17 18:26 Potassium Chloride 100 ml @ 50 mls/hr Q2H PRN IV 04/27/17 08:45 Potassium Chloride 100 ml @ 50 mls/hr Q2H PRN IV 04/27/17 08:45 05/13/17 16:53 (K-Lyte Cl Eff) 50 meq UNSCH PRN PO 04/27/17 08:45 Potassium Chloride 100 ml @ 25 mls/hr UNSCH PRN IV 04/27/17 08:45 05/04/17 19:07 Potassium Chloride 100 ml @ 50 mls/hr Q2H PRN IV 04/27/17 08:45 04/29/17 12:15 Magnesium Sulfate 4 gm/Sodium Chloride 100 ml @ 50 mls/hr UNSCH PRN IV 04/27/17 08:45 (Mag-Ox) 800 mg UNSCH PRN PO 04/27/17 08:45 Magnesium Sulfate 2 gm/Sodium Chloride 100 ml @ 50 mls/hr UNSCH PRN IV 04/27/17 08:45 (K-Phos) 2,000 mg Q4H PRN PO 04/27/17 08:45 04/28/17 15:38 Sodium Phosphate 30 mmol/Sodium Chloride 250 ml @ 42 mls/hr UNSCH PRN IV 04/27/17 08:45 04/27/17 23:59 (K-Phos) 2,000 mg UNSCH PRN PO/TUBE 04/27/17 08:45 05/08/17 06:32 Potassium Phosphate 30 mmol/ Sodium Chloride 260 ml @ 42 mls/hr UNSCH PRN IV 04/27/17 08:45 05/04/17 20:54 (NovoLOG SUPPLEMENTAL SCALE) 1 ACHS SLIDING SCALE SQ 04/28/17 16:00 05/14/17 16:30 (Lovenox Inj) 40 mg Q24H SQ 05/01/17 08:00 05/14/17 09:55 (Colace Liq) 100 mg Q12HR PO 05/07/17 21:00 05/11/17 09:08 (Senna Liq) 8.8 mg BID OG-TUBE 05/07/17 21:00 05/11/17 09:09 (Lactulose Liq) 30 ml QID PO 05/07/17 18:00 05/11/17 17:05 (Miralax) 17 gm BID OG-TUBE 05/07/17 21:00 05/11/17 09:08 (Albuterol Neb) 2.5 mg Q2HR NEB PRN NEB 05/07/17 13:00 05/14/17 08:36 (Prevacid Odt) 30 mg DAILY NG 05/08/17 09:00 05/14/17 09:56 (Lasix Inj) 40 mg BID@0900,1800 IV PUSH 05/11/17 09:00 05/14/17 09:56 (Levemir Inj) 5 units Q12H SQ 05/11/17 21:00 05/14/17 09:59 (Beneprotein Powder) 1 pack TID G-TUBE 05/12/17 13:00 05/14/17 12:12 Allergies Allergies Coded Allergies No Known Allergies (Unverified04/20/17) Review of Systems All other ROS: Unable to obtain Exam I&O / VS Vital Signs Date Time Temp Pulse Resp B/P (MAP) Pulse Ox O2 Delivery O2 Flow Rate FiO2 05/14/17 16:00 82 05/14/17 16:00 40 05/14/17 16:00 99.3 82 19 155/70 (98) 100 05/14/17 15:25 100 45 05/14/17 14:00 78 05/14/17 12:00 98.2 75 25 98/50 (66) 100 05/14/17 12:00 45 05/14/17 12:00 75 05/14/17 11:00 93 50 05/14/17 10:00 94 05/14/17 09:45 50 05/14/17 08:00 98.6 73 15 129/61 (83) 95 05/14/17 08:00 73 05/14/17 08:00 40 05/14/17 07:35 99 35 05/14/17 07:00 100 Mechanical Ventilator 40 05/14/17 06:00 74 05/14/17 04:20 98 40 05/14/17 04:00 98.5 80 14 148/80 (102) 97 05/14/17 04:00 40 05/14/17 04:00 80 05/14/17 02:00 79 05/14/17 01:10 95 40 05/14/17 00:00 98.3 72 14 122/59 (80) 98 05/14/17 00:00 72 05/14/17 00:00 40 05/13/17 22:06 99 40 05/13/17 22:00 75 05/13/17 20:00 40 05/13/17 20:00 97.9 76 14 129/81 (97) 98 05/13/17 20:00 73 05/13/17 19:02 95 40 05/13/17 19:00 99 Mechanical Ventilator 40 05/13/17 18:00 75 Cardiology: Normal rate (Tachycardic) Musculoskeletal: ROM (within normal limits) Exam Comments lethargic. Not following commands. CN--EOM--intact.. PERRL, Right upper motor neuron CN 7 palsey. 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 right Objective Micro and Labs Laboratory Tests Test 05/13/17 23:23 05/14/17 04:23 Potassium Level 3.7 3.5 Blood Urea Nitrogen 35 Creatinine 0.37 Random Glucose 145 Calcium Level 7.8 Sodium Level 143 Chloride Level 105 Carbon Dioxide Level 32.6 Anion Gap 5 Estimat Glomerular Filtration Rate 171 B-Type Natriuretic Peptide 594 Date/Time Source Procedure Growth Status 05/08/17 04:44 Blood Peripheral Aerobic Blood Culture - Final NO GROWTH IN 5 DAYS Complete 05/08/17 04:44 Blood Peripheral Anaerobic Blood Culture - Final NO GROWTH IN 5 DAYS Complete 05/07/17 21:30 Sputum Endotracheal Gram Stain - Final Complete 05/07/17 21:30 Sputum Culture - Final Serratia Marcescens Complete 05/08/17 04:20 Urine Catheterized Urine Urine Culture - Final NO GROWTH IN 48 HOURS. Complete Marcio Malave PhD May 14, 2017 16:42
--- NOTE | 2017-05-14 16:42 | HHI.HCPN ---
Reason for visit a. To assist with evaluation and management of symptoms including: Debility and pain. b. To assist medical decision maker(s) with: better understanding of current medical conditions; weighing benefits/burdens of medical treatment options; making medical treatment decisions. . (Ashly Steven) Subjective/Interval History Mrs. Hein date a 76-year-old female with a past medical history of hypertension , diabetes mellitus and CVA who presented to the ED on 04/20/17 via EMS for evaluation of after a fall. Upon ED admission, random glucose 559. Patient underwent Left hip reduction and intramedullary nail fixation on 04/21/17. Clinical course complicated by large left MCA infarct with diffuse edema throughout the left MCA distribution. Neurology, Dr. Malave consulted. Patient not a candidate for intervention, not a candidate for IV TPA. As per neurology "[place] [facility] the prognosis with a stroke of the size is poor". Palliative care consulted for further clarifications of goals of care given poor prognosis. Patient remains in ICU, intubated on mechanical ventilation, day #14. Daily CPAP trial. Patient currently on 40%. Minimally responsive to verbal or tactile stimuli during my visit, eyes open but not following any commands. Laboratory workup today revealing sodium 143, potassium 3.5, BUN35, Creatinine 0.37, BNP 594. No new imaging for review. Patient remains afebrile, stable hemodynamically. ID following. Patient being followed by wound care for skin breakdown. Case discussed with Dr. Pedraza and bedside RN. . Family/friend interactions Telephone conversation to patient's daughter Trice. Medical update provided. Reviewed overall poor prognosis for a meaningful neurological recovery or prolonged survival. Discussed treatment options to include continuation of aggressive management with tracheostomy and PEG tube placement versus compassionate withdrawal life support. Daughter electing to continue with aggressive management to include tracheostomy and PEG tube placement. Daughter currently collaborating with case management for long-term placement. . (Ashly Steven) Advance Directives Living Will: Never completed Health Care Surrogate: Never completed Durable Power of Polymer Chemist: Never completed (Ashly Steven) Advance Directive Specifics Health Care Surrogate(s): No advance directives completed. As per [place] statute, healthcare proxy decision making falls to patient's only daughter Norma Salvador. . Documented care wishes: No living will completed. . Significant change in goals: Patient's daughter electing to proceed with trach and PEG this time. . (Ashly Steven) Objective Vital Signs Date Time Temp Pulse Resp B/P (MAP) Pulse Ox O2 Delivery O2 Flow Rate FiO2 05/14/17 15:25 100 45 05/14/17 14:00 78 05/14/17 12:00 98.2 75 25 98/50 (66) 100 05/14/17 12:00 45 05/14/17 12:00 75 05/14/17 11:00 93 50 05/14/17 10:00 94 05/14/17 09:45 50 05/14/17 08:00 98.6 73 15 129/61 (83) 95 05/14/17 08:00 73 05/14/17 08:00 40 05/14/17 07:35 99 35 05/14/17 07:00 100 Mechanical Ventilator 40 05/14/17 06:00 74 05/14/17 04:20 98 40 05/14/17 04:00 98.5 80 14 148/80 (102) 97 05/14/17 04:00 40 05/14/17 04:00 80 05/14/17 02:00 79 05/14/17 01:10 95 40 05/14/17 00:00 98.3 72 14 122/59 (80) 98 05/14/17 00:00 72 05/14/17 00:00 40 05/13/17 22:06 99 40 05/13/17 22:00 75 05/13/17 20:00 40 05/13/17 20:00 97.9 76 14 129/81 (97) 98 05/13/17 20:00 73 05/13/17 19:02 95 40 05/13/17 19:00 99 Mechanical Ventilator 40 05/13/17 18:00 75 Intake & Output 05/14/17 05/14/17 07:00 19:00 Intake Total 767 ml Output Total 625 ml Balance 142 ml IV Total 80 ml Tube Feeding 487 ml Other 200 ml Output Urine Total 625 ml Physical Exam CONSTITUTIONAL/GENERAL: This is an elderly female resting in bed. Minimally responsive to verbal or tactile stimuli. Orally intubated on mechanical ventilation. Not sedated. TUBES/LINES/DRAINS: PIV's. Dobbhoff to right nare. ETT, [place] catheter, left soft wrist restraint, [place] SKIN: No jaundice, rashes, or lesions. Ecchymoses on upper extremities. Skin temperature appropriate. Not diaphoretic. Surgical incision to left hip, open to air. Opening blister to right inner thigh HEAD: Atraumatic. Normocephalic. EYES: Pupils equal and round and reactive. No scleral icterus. No injection or drainage. ENT: Unable to evaluate hearing secondary to clinical condition. Nose without bleeding or purulent drainage. Moist oral mucosa. Dobbhoff to right nare. NECK: Trachea midline. Supple. CARDIOVASCULAR: Regular rate and rhythm. Peripheral pulses symmetric. RESPIRATORY/CHEST: Symmetric, orally intubated on mechanical ventilation. Coarse breath sounds. GASTROINTESTINAL: Abdomen soft, round, mildly distended. Bowel sounds present. GENITOURINARY: Without palpable bladder distension. MUSCULOSKELETAL: Extremities without clubbing, cyanosis. Edema to all 4 extremities. Right hand worse than left hand. NEUROLOGICAL: Minimally responsive to verbal or tactile stimuli. Not sedated. Opening eyes. Not following commands. PSYCHIATRIC: Unable to evaluate secondary to clinical condition. Appears calm. . (Ashly Steven) Diagnostic Tests Laboratory Laboratory Tests Test 05/11/17 17:23 05/12/17 04:00 05/13/17 07:40 05/13/17 09:00 Stool C. difficile Toxin (PCR) NEGATIVE (NEGATIVE) Stl C. difficile Toxin Epiderm 027 PRESUMPTIVE NEGATIVE Blood Urea Nitrogen 27 MG/DL (7-18) 30 MG/DL (7-18) Creatinine 0.41 MG/DL (0.50-1.00) 0.42 MG/DL (0.50-1.00) Random Glucose 177 MG/DL (74-106) 151 MG/DL (74-106) Total Protein 4.6 GM/DL (6.4-8.2) 4.9 GM/DL (6.4-8.2) Calcium Level 7.1 MG/DL (8.5-10.1) 7.4 MG/DL (8.5-10.1) Sodium Level 141 MEQ/L (136-145) 140 MEQ/L (136-145) Potassium Level 5.2 MEQ/L (3.5-5.1) 2.8 MEQ/L (3.5-5.1) 2.9 MEQ/L (3.5-5.1) Chloride Level 103 MEQ/L (98-107) 103 MEQ/L (98-107) Carbon Dioxide Level 31.8 MEQ/L (21.0-32.0) 31.7 MEQ/L (21.0-32.0) Anion Gap 6 MEQ/L (5-15) 5 MEQ/L (5-15) Estimat Glomerular Filtration Rate 152 ML/MIN (>89) 147 ML/MIN (>89) Protein Corrected Calcium 8.5 MG/DL (8.5-10.1) 8.6 MG/DL (8.5-10.1) White Blood Count 10.1 TH/MM3 (4.0-11.0) Red Blood Count 2.42 MIL/MM3 (4.00-5.30) Hemoglobin 7.8 GM/DL (11.6-15.3) Hematocrit 23.5 % (35.0-46.0) Mean Corpuscular Volume 97.0 FL (80.0-100.0) Mean Corpuscular Hemoglobin 32.3 PG (27.0-34.0) Mean Corpuscular Hemoglobin Concent 33.3 % (32.0-36.0) Red Cell Distribution Width 17.9 % (11.6-17.2) Platelet Count 384 TH/MM3 (150-450) Mean Platelet Volume 8.2 FL (7.0-11.0) Test 05/13/17 23:23 05/14/17 04:23 Potassium Level 3.7 MEQ/L (3.5-5.1) 3.5 MEQ/L (3.5-5.1) Blood Urea Nitrogen 35 MG/DL (7-18) Creatinine 0.37 MG/DL (0.50-1.00) Random Glucose 145 MG/DL (74-106) Calcium Level 7.8 MG/DL (8.5-10.1) Sodium Level 143 MEQ/L (136-145) Chloride Level 105 MEQ/L (98-107) Carbon Dioxide Level 32.6 MEQ/L (21.0-32.0) Anion Gap 5 MEQ/L (5-15) Estimat Glomerular Filtration Rate 171 ML/MIN (>89) B-Type Natriuretic Peptide 594 PG/ML (0-100) (Ashly Steven) Result Diagram: 05/13/17 0740 05/14/17 0423 Microbiology Microbiology Date/Time Source Procedure Growth Status 05/08/17 04:44 Blood Peripheral Aerobic Blood Culture - Final NO GROWTH IN 5 DAYS Complete 05/08/17 04:44 Blood Peripheral Anaerobic Blood Culture - Final NO GROWTH IN 5 DAYS Complete 05/07/17 21:30 Sputum Endotracheal Gram Stain - Final Complete 05/07/17 21:30 Sputum Culture - Final Serratia Marcescens Complete 05/08/17 04:20 Urine Catheterized Urine Urine Culture - Final NO GROWTH IN 48 HOURS. Complete Procedures * 05/08/17 -left-sided chest tube/pigtail * 04/30/17 -endotracheal intubation * 04/21/17 -Left hip reduction and intramedullary nail fixation . (Ashly Steven) Assessment and Plan Disease Oriented Problem List: (1) Acute respiratory failure (2) Acute CVA (cerebrovascular accident) (3) Pneumonia (4) Atrial fibrillation with RVR (5) Hypertension (6) Hip fracture Symptom Scale: (1) Pain 0-10 Scale: Unable to quantify Comment: Secondary to recent surgical intervention (2) Debility 0-10 Scale: Unable to quantify Comment: Progressive. (3) Shortness of breath 0-10 Scale: Unable to quantify Comment: Currently intubated on mechanical ventilation Pertinent Non-Medical Issues Psychosocial: Patient is originally from [facility]. Residing in [place] up until 2013 she moved to [place] to live with only daughter Trice. Patient is a , in 2006. Spiritual: No jewish affiliation. Legal: No advance directives completed. Ethical issues impacting care: Patient unable to participating in medical decision-making secondary to clinical condition. Patient's daughter acting as healthcare proxy decision maker. . Important Contacts Daughter Norma Salvador . . Prognosis Mrs. Hein needs a 76-year-old female with a past medical history of hypertension, diabetes mellitus and prior CVA. Presented with left hip fracture , underwent ORIF. Clinical course complicated by large left MCA infarct with edema. Overall prognosis is poor for a meaningful neurological recovery or long -term survival given acute stroke, chronic ongoing comorbidities and advanced age. Patient appears hospice appropriate should family elects comfort-directed care. . Code Status: Full Code Plan * CODE STATUS: FULL CODE. * HEALTHCARE DECISION-MAKING: Patient unable to participate in medical decision- making secondary to clinical condition given severe large stroke. No advance directives completed, patient is . As per [place] statute, healthcare proxy decision-making falls to patient's only daughter Trice Salvaodr. * GOALS OF CARE: 05/14/17 -Patient's daughter electing to continue aggressive management to include full code, tracheostomy and PEG placement. Overall poor prognosis has been discussed with daughter. Patient remains at a very high risk for further complications, continue decline and . * Telephone conversation with daughter. Medical update provided. Discussed treatment options to include continuation of aggressive management with tracheostomy and PEG tube placement versus compassionate withdrawal life support. Daughter electing to continue with aggressive management at this time. * SYMPTOMS: = Shortness of breath, multifactorial. Secondary to altered mental status/CVA, pneumonia, lethargy. Intubated and placed on mechanical ventilation. Daughter electing to proceed with tracheostomy placement. = Pain , secondary to recent surgical intervention. Morphine IV available as needed. none given since 04/30/17. = Debility, progressive. Likely to continue to worsen given recent acute stroke and additional complications. * Case has been discussed with Dr Pedraza and bedside RN. * Ongoing emotional support and active listening provided. * Palliative care contact information has been provided to patient's daughter. * Palliative care will continue to follow-up for further clarifications of goals of care as patient's clinical condition continues to evolve. . (Ashly Steven) Time Spent Total Floor Time (mins): 38 (Total time to include review medical records, physical exam, goals of care conversation with patient's daughter, case discussion with Dr. Pedraza and bedside RN.) >50% Counseling/Coord of Care: Yes (Ashly Steven) Attestation To help prompt me to consider important information that might be impacting today's encounter and assessment, information from prior notes written by myself or my colleagues may have been "brought forward" into today's note. My signature on this note, however, is an attestation that I personally performed the exam, history, and/or decision-making noted today, and, unless otherwise indicated, the interactions with patient, family, and staff as well as the review of records all occurred today. I also attest that the listed assessment and stated plan reflect my best clinical judgment today based on the combination of historical information, prior notes, and today's exam/ interactions. When time spent is documented, it refers only to time spent today by the signer, or if indicated, combined time spent today by collaborating physician/nurse practitioner. (Ashly Steven) Collaborating MD Comments Chart reviewed. Case discussed with palliative care KILN STACKER. Above note reviewed and I concur. . (Vamsi Minaya MD) Ashly Steven May 14, 2017 16:42 Vamsi Minaya MD Jun 08, 2017 11:56
--- NOTE | 2017-05-14 17:13 | HHI.FPPN ---
Subjective Remarks Ms Melvina had no acute events overnight. Ms Melvina not awaking to senior medical transcriptionist my hand today. CPAP trials are progressing somewhat. She is able to tolerate 1 to 1.5 hours on CPAP, but believe these trials are leaving her very fatigued--she has little reserve. Diuresis with Lasix restarted now that her K+ has normalized-- wt down from 70kg on 05/10 to 59 today. Family meeting with daughter, ID, Dr Pedraza, neuro yesterday revealed no change in daughter wanting to pursue full code with aggressive resuscitation. (Chuy Camacho MD R1) Objective Vitals Vital Signs Date Time Temp Pulse Resp B/P (MAP) Pulse Ox O2 Delivery O2 Flow Rate FiO2 05/14/17 16:00 82 05/14/17 16:00 40 05/14/17 16:00 99.3 82 19 155/70 (98) 100 05/14/17 15:25 100 45 05/14/17 14:00 78 05/14/17 12:00 98.2 75 25 98/50 (66) 100 05/14/17 12:00 45 05/14/17 12:00 75 05/14/17 11:00 93 50 05/14/17 10:00 94 05/14/17 09:45 50 05/14/17 08:00 98.6 73 15 129/61 (83) 95 05/14/17 08:00 73 05/14/17 08:00 40 05/14/17 07:35 99 35 05/14/17 07:00 100 Mechanical Ventilator 40 05/14/17 06:00 74 05/14/17 04:20 98 40 05/14/17 04:00 98.5 80 14 148/80 (102) 97 05/14/17 04:00 40 05/14/17 04:00 80 05/14/17 02:00 79 05/14/17 01:10 95 40 05/14/17 00:00 98.3 72 14 122/59 (80) 98 05/14/17 00:00 72 05/14/17 00:00 40 05/13/17 22:06 99 40 05/13/17 22:00 75 05/13/17 20:00 40 05/13/17 20:00 97.9 76 14 129/81 (97) 98 05/13/17 20:00 73 05/13/17 19:02 95 40 05/13/17 19:00 99 Mechanical Ventilator 40 05/13/17 18:00 75 I/O 05/13/17 05/13/17 05/13/17 05/14/17 05/14/17 05/14/17 07:00 15:00 23:00 07:00 15:00 23:00 Intake Total 730 ml 350 ml 1618 ml 767 ml Output Total 1300 ml 575 ml 625 ml Balance -570 ml 350 ml 1043 ml 142 ml IV Total 54 ml 350 ml 645 ml 80 ml Tube Feeding 676 ml 493 ml 487 ml Other 480 ml 200 ml Output Urine Total 1300 ml 575 ml 625 ml Stool Total 0 ml 0 ml (Chuy Camacho MD R1) Result Diagram: 05/13/17 0740 05/14/17 0423 Objective Remarks CONSTITUTIONAL/GEN: Nonverbal, lying in bed. Intubated with intermittent CPAP trials, receiving tube feeds. Patient's eyes remain closed despite sternal rub; she does not grasp my hand today HEAD: Normocephalic. Atraumatic. G-tube and endotracheal tube in place. LUNGS: Coarse breath sounds bilaterally but moving air well CARDIOVASCULAR: Regular rate and regular rhythm. Lower extremity bilateral pitting edema, improving. Right hand still puffy, but improving. Left arm much improved today without any pitting edema. GI/ABD: less distended and less tense with much less edema, without masses, without organomegaly. NEURO: Intubated; eyes closed. Patient seems to be asleep today. Patient has flaccid paralysis on the right side. Moves left side spontaneously. : Dark yellow urine draining into moser bag MUSC: SCDs on bilateral lower extremities. Pedal pulses weak. SKIN: Erythematous sacral wound Procedures ORIF 04/21/17 Intubation 04/30/17 Medications and IVs Current Medications Medications (Trade) Dose Ordered Sig/Zeferino Route Start Time Stop Time Status Last Admin (Zofran Inj) 4 mg Q6H PRN IV PUSH 04/20/17 15:00 04/30/17 02:28 (Morphine Inj) 1 mg Q3H PRN IV 04/20/17 17:15 04/28/17 18:15 (Morphine Inj) 2 mg Q3H PRN IV 04/20/17 17:15 04/30/17 02:29 (Narcan Inj) 0.4 mg UNSCH PRN IV 04/20/17 17:15 (Milk Of Magnyoly Liq) 30 ml Q12H PRN PO 04/20/17 20:30 (Senokot) 17.2 mg Q12H PRN PO 04/20/17 20:30 04/23/17 22:55 (Dulcolax Supp) 10 mg DAILY PRN RECTAL 04/20/17 20:30 (Oscal-D 250-125) 250 mg TID PO 04/21/17 13:00 05/14/17 12:11 (Vitamin D3) 5,000 units DAILY PO 04/22/17 09:00 05/14/17 09:56 (NS Flush) 2 ml BID IV FLUSH 04/24/17 21:00 05/14/17 09:00 (NS Flush) 2 ml UNSCH PRN IV FLUSH 04/24/17 09:30 (Glucagon Inj) 1 mg UNSCH PRN IM/SQ 04/24/17 18:15 (Aspirin) 325 mg DAILY DOBHOFF 04/27/17 09:00 05/14/17 09:56 (D50w (Syr) Inj) 25 ml UNSCH PRN IV 04/26/17 20:30 05/11/17 01:35 (Lopressor Inj) 5 mg Q5M PRN IV PUSH 04/27/17 04:00 05/03/17 18:26 Potassium Chloride 100 ml @ 50 mls/hr Q2H PRN IV 04/27/17 08:45 Potassium Chloride 100 ml @ 50 mls/hr Q2H PRN IV 04/27/17 08:45 05/13/17 16:53 (K-Lyte Cl Eff) 50 meq UNSCH PRN PO 04/27/17 08:45 Potassium Chloride 100 ml @ 25 mls/hr UNSCH PRN IV 04/27/17 08:45 05/04/17 19:07 Potassium Chloride 100 ml @ 50 mls/hr Q2H PRN IV 04/27/17 08:45 04/29/17 12:15 Magnesium Sulfate 4 gm/Sodium Chloride 100 ml @ 50 mls/hr UNSCH PRN IV 04/27/17 08:45 (Mag-Ox) 800 mg UNSCH PRN PO 04/27/17 08:45 Magnesium Sulfate 2 gm/Sodium Chloride 100 ml @ 50 mls/hr UNSCH PRN IV 04/27/17 08:45 (K-Phos) 2,000 mg Q4H PRN PO 04/27/17 08:45 04/28/17 15:38 Sodium Phosphate 30 mmol/Sodium Chloride 250 ml @ 42 mls/hr UNSCH PRN IV 04/27/17 08:45 04/27/17 23:59 (K-Phos) 2,000 mg UNSCH PRN PO/TUBE 04/27/17 08:45 05/08/17 06:32 Potassium Phosphate 30 mmol/ Sodium Chloride 260 ml @ 42 mls/hr UNSCH PRN IV 04/27/17 08:45 05/04/17 20:54 (NovoLOG SUPPLEMENTAL SCALE) 1 ACHS SLIDING SCALE SQ 04/28/17 16:00 05/14/17 16:30 (Lovenox Inj) 40 mg Q24H SQ 05/01/17 08:00 05/14/17 09:55 (Colace Liq) 100 mg Q12HR PO 05/07/17 21:00 05/11/17 09:08 (Senna Liq) 8.8 mg BID OG-TUBE 05/07/17 21:00 05/11/17 09:09 (Lactulose Liq) 30 ml QID PO 05/07/17 18:00 05/11/17 17:05 (Miralax) 17 gm BID OG-TUBE 05/07/17 21:00 05/11/17 09:08 (Albuterol Neb) 2.5 mg Q2HR NEB PRN NEB 05/07/17 13:00 05/14/17 08:36 (Prevacid Odt) 30 mg DAILY NG 05/08/17 09:00 05/14/17 09:56 (Lasix Inj) 40 mg BID@0900,1800 IV PUSH 05/11/17 09:00 05/14/17 09:56 (Levemir Inj) 5 units Q12H SQ 05/11/17 21:00 05/14/17 09:59 (Beneprotein Powder) 1 pack TID G-TUBE 05/12/17 13:00 05/14/17 12:12 (Cuhy Camacho MD R1) Urinary Catheter: Yes Moser insert reason: Obstruction/Retention Date of Insertion: May 02, 2017 (Chuy Camacho MD R1) A/P Assessment and Plan 76 y/o female with HTN, DM, CVA admitted for DKA and hip fracture. Now with massive left MCA stroke, right hemiplegia and midline shift resolving. Neuro and certified novell administrator consulted. Working with palliative care and family for goals of care. 05/07 CT abdomen/pelvis shows large pneumothorax on left side decompressed with chest tube. Plan to pull chest tube today on 05/12. -Overall poor prognosis, pursuing goals of care discussion with daughter (HCPOA) , but at this time daughter wishes continued intervention -05/09 - extensive discussion with daughter today indicates no willingness to pursue comfort measures only. Daughter continues to ask for aggressive management of her mother's condition; will continue to engage in this discussion -05/11--CXR w/bilateral pleural effusions vs pulmonary edema--diuresis ordered -05/14 -- little interval change. Wt down from 70 kg on 05/10 to 59kg today. CPAP trials progressing. Family meeting with daughter yielded no change in code status or goals of care. Plan is to re-join with discussing trach and PEG feeding tube with daughter in 2-3 days time. Discharge Planning Pending stroke progression and discussion for goals of care (Chuy Camacho MD R1) Attending Attestation Patient seen and examined. Case reviewed and discussed with the resident team. Agree with plan of care as discussed with me and documented in the resident note. will need trach and PEG (Dawn Guajardo MD) Problem List: (1) Acute CVA (cerebrovascular accident) ICD Codes: I63.9 - Cerebral infarction, unspecified Status: Acute Plan: Patient found minimally responsive with neurological deficits around 0820 04/24. Stat CT of head was ordered, which showed large left MCA infarct. Diffuse edema throughout the left MCA distribution, suggest completed infarct. This was discussed and was not a candidate for intracranial intervention. CT (04/30): Reduction in midline shift to 11mm. Unchanged large left MCA infarction. CT head (05/06) shows: Evolving large left-sided MCA territory infarct with minimally improved xqif-gl-emfiy subfalcine shift. No intercurrent hemorrhage or other acute abnormality. Echocardiogram- The left ventricular systolic function is low normal with an estimated ejection fraction in the range of 50-55%. Mild concentric left ventricular hypertrophy. Normal left ventricular size. Eskfn-ei-pypu mitral valve regurgitation. Carotid Artery US- No hemodynamically significant carotid stenosis -Consulted certified novell administrator, appreciate recs -Intubated/sedated; does not recommend tracheostomy -IV hydration, watch for hypotension. -Keep systolic to less than 220 -Lactated Ringer's reduced to 75 ml/hr -Poor prognosis -Neurosurgery consulted -Recommended conservative management -Keep Na in 145-154 range -Tube feeds: Glucerna 1.5 mLs for diet via Dobbhoff tube -[employer] consult for management and recs -Added beneprotein to G-tube -Consult palliative care-appreciate recs -Case discussed with daughter in-person about goals of care, limited treatment options, and poor prognosis. -Daughter continues to want aggressive care. Wishes to continue aggressive medical treatment despite prognosis -Neurology consulted-appreciate recs -Rectal ASA -Lovenox 40mg daily (2) Sepsis ICD Codes: A41.9 - Sepsis, unspecified organism Status: Acute Plan: Impression: Pt met SIRS criteria with tachycardia, leukocytosis Leukocytosis resolved today. Cultures: 05/07 Blood cultures and sputum cultures negative to date 04/30 Sputum culture with staph, Serratia 04/29 blood culture with staph -See antibiotics as below -Culture results as below -Monitor vitals (3) HCAP (healthcare-associated pneumonia) ICD Codes: J18.9 - Pneumonia, unspecified organism Status: Acute Plan: Suspect possible HCAP. Persistent leukocytosis. Possible aspiration Chest CT (04/30): Bilateral pulmonary infiltrates more pronounced within lower lobes with b/l pleural effusions. Material in lower lobe bronchi b/l, purulent or mucus plugging 04/30 Sputum culture showing staph aureus and Serratia Marcescens Legionella and strep pneumo urine tests negative CXR 05/02: Increased airspace opacity bilaterally. The pattern may represent pulmonary edema. There is likely a left pleural effusion. CXR 05/08: Stable diffuse consolidation of right warm to much lesser extent left perihilar region consistent with pneumonia or asymmetric pulmonary vascular congestion CXR 05/09: no pneumothorax, but small subcutaneous emphysema in left chest, patchy opacity in right lower lung consistent with pneumonia or pulmonary vascular congestion. Continue antibiotic therapy as per ID recs -Levaquin IV 750 mg (05/04- ) HCAP -Cefepime 2g IV daily restarted 05/14 -Repeat blood cultures (05/07) pending , with 1/4 positive; possible contaminant -Sputum cx 05/07 reveals Serratia marascens susceptible to cefepime, erta/imi, genta, tobra, bactrim and levo--continuing levaquin as above -Duonebs treatments q6h Antibiotic History -Discontinued Cefepime 2g IV daily (04/30 - d/c 05/04 ) -Discontinued Vancomycin IV (04/30 - d/c 05/04 ) -Discontinued Flagyl 500mg q8h (04/29 - 05/13) (4) Yeast UTI ICD Codes: B37.49 - Other urogenital candidiasis Status: Resolved Plan: UA showed glucose, large number of leukocytes esterase, innumerable WBCs , rare bacteria, and few yeast Urine culture shows Lea Glabrata; however, high GGT and Alk Phos require reducing hepatotoxic drugs -D/C Micafungin 100mg IV daily as it is hepatically metabolized -Urine cx 05/08 NGTD (5) Abdominal distension ICD Codes: R14.0 - Abdominal distension (gaseous) Status: Acute Plan: Impression: Abdominal distension much improved today; first noted on exam 05/05 with serial KUBs neg for etiology. In association with transaminase elevation and Alk P >1k and GGT elevation. s/p large BM 05/07 per nursing staff 05/06 - CT abdomen/pelvis- large left pneumothorax, bilateral lower lobe consolidation and bilateral moderate-sized pleural effusions, significant soft tissue thickening of right lateral chest wall and left gluteus. Mild ascites 05/09 - abdominal distension unchanged; however, LFTs resolving following chest tube -Continue to monitor at this time -Continue to follow LFTs 05/11 - abdominal distention seems to be related to diffuse edema, trial of Lasix 20 mg IV twice a day, which was increased to 40 mg IV twice a day 05/12 - much less abdominal distention today. Significant improvement with significant net diuresis of almost 4 L. 05/14 - continues to improve (6) Fluid overload ICD Codes: E87.70 - Fluid overload, unspecified Status: Acute Plan: Mess Attendant noted fluid overload -Lasix IV bid -Metolazone and Bumex d/c'd (7) Pneumothorax ICD Codes: J93.9 - Pneumothorax, unspecified Status: Resolved Plan: Impression: Noticed on 05/06 CT abdomen/pelvis- large left pneumothorax, bilateral lower lobe consolidation and bilateral moderate-sized pleural effusions. S/P chest tube placement. Chest tube to waterseal for the last few days. Chest tube output 50 mL or less for the past 4 days, including today. -Chest tube pulled on 05/12/17 -Follow up chest x-ray today -Chest tube pulled 05/13 (8) Type 2 diabetes mellitus ICD Codes: E11.9 - Type 2 diabetes mellitus without complications Status: Chronic Plan: Admitted for DKA which has now resolved. Hemoglobin A1C is 12.9. Diabetes Type I is uncontrolled. -Continue Levemir 10 units BID due to hypoglycemia at higher dose -Medium dose insulin sliding scale with goal blood glucose between 140 and 180 -Glucerna for NG tube feedings -D/C Regular accuchecks (9) Atrial fibrillation ICD Codes: I48.91 - Unspecified atrial fibrillation Status: Acute Plan: Hx of intermittent Afib. Resolved with administration of Lopressor. -Continue to monitor -Lopressor PRN (10) Hip fracture ICD Codes: S72.009A - Fracture of unspecified part of neck of unspecified femur , initial encounter for closed fracture Status: Acute Plan: S/P left hip reduction and intramedullary nail fixation on 04-21-17 -Consult orthopedics-appreciate recs * WBAT * Daily dressing changes -Calcium/Vitamin D -Fluids as above -Tylenol, morphine PRN pain (11) Hypertension ICD Codes: I10 - Essential (primary) hypertension Status: Acute Plan: IV hydration. BPs wnl overnight -Continue fluids as above -Antihypertensives to keep SBP<180 -Lasix or Bumex for diuresis as required (12) On mechanically assisted ventilation ICD Codes: Z99.11 - Dependence on respirator [ventilator] status Plan: Impression: On CPAP trial to wean off ventilation; 40% FiO2 -Continue weaning trials as tolerated (13) Elevated LFTs ICD Codes: R79.89 - Other specified abnormal findings of blood chemistry Plan: Impression: LFT elevations with alkaline phosphatase gradually rising from 351-1931 and AST rising from 50s to 217. Liver/biliary etiology expected as GGT 787. Gallbladder ultrasound obtained by certified novell administrator 05/08; focally unremarkable in appearance of gallbladder -Incrementally resolving since chest tube placement -Monitor at this time (14) Sacral decubitus ulcer ICD Codes: L89.159 - Pressure ulcer of sacral region, unspecified stage Plan: Patient with beginnings of a sacral decubitus ulcer. -Wound care consult ordered and appreciated (15) Fluids, Electrolytes, and Nutrition Status: Acute Plan: Fluids: IVF as above Electrolyte: on electrolyte protocol Nutrition: Glucerna tube feeds, added beneprotein DVT ppx: SCDs/lovenox 40 mg daily GI ppx: protonix Colace, fleet enema mineral oil (Chuy Camacho MD R1) Problem Qualifiers (1) Sepsis: Qualified Codes: A41.9 - Sepsis, unspecified organism (2) Fluid overload: Qualified Codes: E87.79 - Other fluid overload (3) Pneumothorax: (4) Type 2 diabetes mellitus: Qualified Codes: E11.9 - Type 2 diabetes mellitus without complications (5) Atrial fibrillation: Qualified Codes: I48.0 - Paroxysmal atrial fibrillation (6) Hip fracture: (7) Hypertension: Qualified Codes: I10 - Essential (primary) hypertension Chuy Camacho MD R1 May 14, 2017 17:13 Dawn Guajardo MD May 16, 2017 17:53
[2017-05-14] MEDS ORDERED: MIDAZOLAM HCL 2 MG/2 ML VIAL IV PUSH SCH (17:45)
[2017-05-14] MEDS ORDERED: CISATRACURIUM BESYLATE 20 MG/10 ML VIAL IV PUSH ONE (17:45)
--- NOTE | 2017-05-14 17:50 | HHI.CCPN ---
Subjective Remarks/Hospital Course 04/24: 76-year-old female with a medical history significant for prior stroke, diabetes mellitus who was admitted with DKA and a hip fracture for which she underwent ORIF on 04/21. Patient developed altered mental status and was last noted to be okay around 5:30 AM. Subsequently there was a change in her mental status and she was noted to not be moving her right side for which stroke alert was called. Head CT showed large left MCA territory ischemic infarct with edema. Patient was transferred to the ICU by family medicine service in the critical care consult was requested. I evaluated the patient following arrival to the ICU. At that time she was laying in bed with her eyes open however not following commands and had a dense right hemiplegia. Patient was also evaluated by Dr. Malave from neurology. I further discussed current event with patient's daughter following her arrival to the ICU. Per the daughter patient has been living with her since her stroke in 2014 and does ambulate however has been having problems with memory and incontinence as well as gait difficulties. She does not feel patient would want intubation or tracheostomy or PEG tube. 04/25: Patient remains encephalopathic, awake though not following commands consistently. Dense right hemiplegia persists. Appears to be awake enough to protect airway currently. Patient's daughter rescinded DNR and made a full code last evening. 04/26: Remains encephalopathic, not following commands. On Dobbhoff for tube feeds at 30 cc per hour. Had urinary retention and drained 2 L of urine after placing Leavitt catheter today. CT head done this morning with large left MCA territory infarct with left to right midline shift and significant cerebral edema. Hyperglycemia noted. Patient given mannitol earlier for increasing cerebral edema. 04/27: Remains encephalopathic, not following commands. On Dobbhoff tube feeds at 30 cc per hour. When into A. fib with RVR last night which responded with Lopressor 5 mg IV 1 dose. 04/28: Remains encephalopathic, arousable, not following commands. Moves left upper extremity spontaneously. Tolerating Dobbhoff tube feeds. Remains on nasal cannula. 04/29: Encephalopathic, eyes be arousable, moves left upper extremity spontaneously and occasionally opens eyes. Dense right hemiplegia and aphasia persists. On nasal cannula. Dobbhoff tube feeds being advanced. Patient was transfused 1 unit PRBCs yesterday. Urine culture with yeast from yesterday for which fluconazole being started. Had brief run of A. fib with RVR which improved with Lopressor IV, currently in sinus rhythm. 04/30: Worsening hypoxemic respiratory failure, currently on partial nonrebreather. Remains lethargic. WBC count increased from 14.6 today 20.7. Chest x-ray shows bilateral worsening infiltrates and small pleural effusions. Sodium 154, weight up by 8 KG. Albumin 1 mg Bumex 1. Also one dose of albumin. Remains in sinus tachycardia. Tmax 101.3 05/01: Patient was intubated yesterday for lack of airway protection, and severe hypoxemic respiratory failure from aspiration pneumonia involving multiple lobes. Patient is on the vent lethargic, no spontaneous eye opening. Chest x- ray remains unchanged. Remains intermittently febrile Tmax 101.3. WBC count improving 05/02: Remains critically ill with no improvement in mental status. Spiking fever of 101.7. Blood culture and sputum culture with staph aureus sputum also growing GNR, WBC count 22,000 now indicating worsening sepsis. Daughter still requesting aggressive care. Palliative care is following 05/03: S/P large area dominant hemisphere CVA. No neurological improvement. Now with pneumonia (infiltrate, fever, leukocytosis) and appropriate abx coverage. She will have a hard time surviving the hip fx, CVA, and pneumonia. Palliative Care needs to be a mainstay of our plan. 05/04: No improvement in neuro status. Sputum C&S allows us to narrow abx coverage to levaquin alone. Lungs remain quite congested. Enteral nutrition tolerated. 05/05: No improvement in neuro status. Moves left arm spontaneously. Flaccid right side. Unresponsive. Persistent mild hypoglycemia - will cut Levemir 50%. Abdomen more distended, check KUB. 05/06: CT head with massive left MCA infarction and > 1 cm shift in right handed woman. She opens eyes, does not track. 05/07: Patient open eyes. Attempts to respond. [place]cu[place] speaking. Tolerating tube feeds. Positive bowel movement. Volume overloaded. Subjective 05/08: Tmax 99.4. Potassium being replaced. Ultrasound gallbladder currently pending. Transaminases are trending downward. Gently diurese. 05/09: Alk phos decreasing. Remains with good urine output. Neurological status not improving. 05/10: Fixed neuro deficit unchanged. Profound CVA. 05/11: Appears to track with eyes today. No improvement in motor function. Remains very edematous, diuretics doubled. 05/12: Continued thick secretions. Afebrile, leukocytosis resolved. 05/13: CT head with completed left MCA stroke, persistent edema and 5 mm shift away. Does not last long on SBTs - major decision now is trach/PEG. 05/14: Daughter has decided to proceed with trach and PEG. I have been pessimistic with her about chances for a meaningful recovery. Objective Vital Signs Date Time Temp Pulse Resp B/P (MAP) Pulse Ox O2 Delivery O2 Flow Rate FiO2 05/14/17 16:00 82 05/14/17 16:00 40 05/14/17 16:00 99.3 19 155/70 (98) 100 05/14/17 07:00 Mechanical Ventilator Intake and Output 05/14/17 05/14/17 05/15/17 08:00 16:00 00:00 Intake Total 767 ml Output Total 625 ml Balance 142 ml Result Diagram: 05/13/17 0740 05/14/17 0423 Imaging Last Impressions Chest X-Ray 05/07/17 0400 Signed Impressions: Service Date/Time: Sunday, May 07, 2017 04:38 - CONCLUSION: 1. Stable Low-lying ETT with tip approximately 1 cm above the valerie. 2. Mild interval progression of bilateral airspace consolidation exaggerated by patient rotation. 3. Increased small left pleural effusion. Alejo De La Vega MD Abdomen/Pelvis CT 05/07/17 0000 Signed Impressions: Service Date/Time: Sunday, May 07, 2017 13:23 - CONCLUSION: 1. Large left pneumothorax. 2. Bilateral lower lobe consolidation and bilateral moderate size pleural effusions. 3. Significant soft tissue thickening of the right lateral chest wall and left gluteus muscle. 4. Mild ascites. The findings were called to Dr. Carney. Deangelo Zamora MD Head CT 05/06/17 0000 Signed Impressions: Service Date/Time: Saturday, May 06, 2017 04:18 - CONCLUSION: 1. Evolving large left-sided MCA territory infarct with minimally improved [id number] subfalcine shift. 2. No intercurrent hemorrhage or other acute abnormality. Alejo De La Vega MD Abdomen X-Ray 05/06/17 0000 Signed Impressions: Service Date/Time: Saturday, May 06, 2017 17:42 - CONCLUSION: Dobbhoff feeding tube tip near the gastroduodenal junction. Obdulio Simms MD Hip and Pelvis X-Ray 05/05/17 0000 Signed Impressions: Service Date/Time: Friday, May 05, 2017 10:59 - CONCLUSION: Left proximal femur trochanteric/subtrochanteric fracture lucency visualized. Postoperative changes. Choco Mustafa MD Chest CT 04/30/17 0000 Signed Impressions: Service Date/Time: Sunday, April 30, 2017 09:20 - CONCLUSION: 1. Bilateral pulmonary infiltrates more pronounced within the lower lobes with tiny bilateral pleural effusions. Material seen filling the lower lobe bronchi bilaterally either related to purulent material or perhaps mucus plugging. Deangelo Wren Jr., MD Carotid Artery Ultrasound 04/24/17 0000 Signed Impressions: Service Date/Time: April 09:45 - CONCLUSION: 1. No hemodynamically significant carotid artery stenosis. Arnie Middleton MD Hip X-Ray 04/21/17 0000 Signed Impressions: Service Date/Time: Friday, April 21, 2017 11:36 - CONCLUSION: Fluoroscopic images during placement of intramedullary siomara left femur. Benja Ramsey MD Objective Remarks Gen: 76-year-old female HEENT: Pallor present. Moderate dark ET tube secretions Neck: Orally intubated. Chest/pulmonary: Scattered rhonchi. Chest tube d/c'd Cardiovascular: RRR. S1, S2, without murmur, rub GI/abdomen: Distended. Nontender. Active bowel sounds are present. Extremities: Warm bilaterally, anasarca 2+ upper and 2+ lower extremity edema. Incision sites over left hip, thigh ORIF site clean dry and intact. Neuro: Intubated, on no sedation. No eye opening today. Dense right hemiplegia noted. Withdraws left upper extremity, Withdraws LLE. No change. Pupils 2 mm, react. Date of Insertion: May 02, 2017 A/P Assessment and Plan Neuro/Psych: Left MCA CVA - 12 mm of [id number] subfalcine herniation - right-sided hemiplegia Acute encephalopathy History CVA Follow neuro status closely. Continue Aspirin 325 mg by mouth daily Patient was not a candidate for thrombolysis per discussion with neurology and radiology. Repeat head CT 05/05 showed slight improvement in the midline shift and mass effect Neurosurgery consulted 04/30- Dr. López, recommended conservative management Neurology following - Dr. Malave On morphine 1-2 every 3 hours when necessary pain Cardiovascular: Hypertension IV fluids currently on hold due to edema As needed Antihypertensives to keep systolic blood pressure less than to 180 mmHg Echocardiogram 04/24 - EF 50 to 55%. Mild concentric LVH. Pulmonary: Acute hypoxic respiratory failure - aspiration possible HCAP Large left pneumothorax status post #10 Colombian chest tube 05/07 PRVC 14/400// Ventilator bundle Ipratropium/albuterol aerosols every 6 hours with albuterol aerosols every 2 hours. Dyspnea Intubated on 04/30/17 for worsening hypoxemic respiratory failure, aspiration pneumonia Chest x-ray shows 05/08 revealed increasing infiltrate/small pleural effusion left side. Right-sided chest tube in place. CT of the chest 04/30/17 showed severe bibasilar consolidation, and evidence of aspiration Daily SBTs. GI/liver: Elevated transaminases Hypoalbuminemia Moderate to severe protein calorie malnutrition Dobbhoff for tube feedings and medications. Continue tube feeding with Glucerna 1.5 goal 45 cc an hour On hold 05/08 due to possible cholecystostomy tube placement depending on ultrasound gallbladder Lansoprazole 30 mg daily for GI regimen Docusate sodium 100 twice a day, Senokot 8.6 twice a day, polyethylene glycol 17 grams twice a day and lactulose 30 cc 4 times a day Evaluate CT abdomen/pelvis 05/07 - mild ascites. Large left hemothorax. Right greater than left pleural effusion. Avoid hepatotoxic drugs LFTs improving Endocrine: Diabetes mellitus Detemir 20 units subcutaneous every 12 hours. Currently hold while nothing by mouth Sliding scale insulin Accu-Cheks to maintain euglycemia/low regimen Holding glimepiride 4 mill grams by mouth daily /Renal/FEN: Hypopotassemia Strict intake output, monitor and replete electrolytes, follow BUN/creatinine. Leavitt catheter placed for urinary retention on 04/26. Heme: Chronic Rivaroxaban use Leukocytosis Normocytic anemia Thrombocytosis Follow CBC and coags. On subcutaneous enoxaparin Hemoglobin currently stable. No indications for transfusion of blood proximally at this time ID: MSSA bacteremia Serratia/staph aureus pneumonia C glabrata UTI Pertinent cultures Urine culture 04/26/17 sofie glabrata Blood culture 04/29/17 1 out of 4 bottles staph aureus Sputum culture 04/30/17 staph aureus and Serratia. Blood cultures 2, sputum 1 and urine 05/08 pending -> Serratia On iv levaquin, oral flagyl MSK: Left Intertroch Hip Fx s/p IMN - POD 14 Vitamin D deficiency WBAT DC ginger today redress with Xeroform/Primapore Prophylaxis: SCDs. Enoxaparin 40 mg sq daily-cleared by Dr. Ananda SANDS - lansoprazole Overall impression: Devastating CVA. No improvement. Lengthy talk involving daughter and Palliative Care service yesterday. I re-enforced poor prognosis. We have been unable to wean the ventilator; she repeatedly fails SBTs.Daughter would like to proceed with tracheostomy and PEG insertion. Charles Pedraza MD May 14, 2017 17:50
[2017-05-14] MEDS ORDERED: CISATRACURIUM BESYLATE 20 MG/10 ML VIAL IV PUSH SCH (18:00)
[2017-05-15] VITALS (18 sets, daily range): BP systolic 113–167; BP diastolic 59–87; PULSE 72–96; RESP 14–21; TEMP 97.7–98.6; O2SAT 96–100
[2017-05-15] MEDS: POTASSIUM CHLOR 20 MEQ PREMIX 100 ML IV PRN ×3 (00:17→06:23)
[2017-05-15 06:06] LABS: BICARBONATE 29.5 MEQ/L (21.0-32.0); CALCIUM 7.8 MG/DL (8.5-10.1); CREATININE 0.4 MG/DL (0.50-1.00)
[2017-05-15] MEDS: INSULIN ASPART SUPPLEMENTAL SCALE SQ SCH ×4 (08:00→21:28)
[2017-05-15] MEDS: ENOXAPARIN SODIUM 40 MG/0.4 ML SYRINGE SQ SCH (08:00)
[2017-05-15] MEDS: FUROSEMIDE 40 MG/4 ML VIAL IV PUSH SCH ×2 (08:57→17:51)
[2017-05-15] MEDS: POLYETHYLENE GLYCOL 17 GM PKG OG-TUBE SCH ×2 (08:58→21:00)
[2017-05-15] MEDS: DOCUSATE SODIUM 100 MG/10 ML UDC PO SCH ×2 (08:58→21:26)
[2017-05-15] MEDS: CHOLECALCIFEROL (VIT D3) 5000 UNIT CAP PO SCH (08:58)
[2017-05-15] MEDS: ASPIRIN 325 MG TAB DOBHOFF SCH (08:58)
[2017-05-15] MEDS: SENNOSIDES SYRUP 8.8 MG/5 ML CUP OG-TUBE SCH ×2 (08:58→21:00)
[2017-05-15] MEDS: CALCIUM/VITAMIN D 250 MG/125 U TAB PO SCH ×3 (08:58→17:41)
[2017-05-15] MEDS: LANSOPRAZOLE SOLUTAB 30 MG TAB NG SCH (08:58)
[2017-05-15] MEDS: BENEPROTEIN POWDER 1 PACK G-TUBE SCH ×3 (08:59→17:51)
[2017-05-15] MEDS: SODIUM CHLORIDE 0.9% FLUSH 5 ML FLUSH IV FLUSH SCH ×2 (08:59→21:27)
[2017-05-15] MEDS: LACTULOSE SYRUP 20 GM/30 ML CUP PO SCH ×4 (08:59→21:27)
[2017-05-15] MEDS: INSULIN DETEMIR 100 UNITS/ML VIAL SQ SCH ×2 (09:00→21:27)
--- NOTE | 2017-05-15 11:04 | HHI.CCPN ---
Subjective Remarks/Hospital Course 04/24: 76-year-old female with a medical history significant for prior stroke, diabetes mellitus who was admitted with DKA and a hip fracture for which she underwent ORIF on 04/21. Patient developed altered mental status and was last noted to be okay around 5:30 AM. Subsequently there was a change in her mental status and she was noted to not be moving her right side for which stroke alert was called. Head CT showed large left MCA territory ischemic infarct with edema. Patient was transferred to the ICU by family medicine service in the critical care consult was requested. I evaluated the patient following arrival to the ICU. At that time she was laying in bed with her eyes open however not following commands and had a dense right hemiplegia. Patient was also evaluated by Dr. Malave from neurology. I further discussed current event with patient's daughter following her arrival to the ICU. Per the daughter patient has been living with her since her stroke in 2014 and does ambulate however has been having problems with memory and incontinence as well as gait difficulties. She does not feel patient would want intubation or tracheostomy or PEG tube. 04/25: Patient remains encephalopathic, awake though not following commands consistently. Dense right hemiplegia persists. Appears to be awake enough to protect airway currently. Patient's daughter rescinded DNR and made a full code last evening. 04/26: Remains encephalopathic, not following commands. On Dobbhoff for tube feeds at 30 cc per hour. Had urinary retention and drained 2 L of urine after placing Leavitt catheter today. CT head done this morning with large left MCA territory infarct with left to right midline shift and significant cerebral edema. Hyperglycemia noted. Patient given mannitol earlier for increasing cerebral edema. 04/27: Remains encephalopathic, not following commands. On Dobbhoff tube feeds at 30 cc per hour. When into A. fib with RVR last night which responded with Lopressor 5 mg IV 1 dose. 04/28: Remains encephalopathic, arousable, not following commands. Moves left upper extremity spontaneously. Tolerating Dobbhoff tube feeds. Remains on nasal cannula. 04/29: Encephalopathic, eyes be arousable, moves left upper extremity spontaneously and occasionally opens eyes. Dense right hemiplegia and aphasia persists. On nasal cannula. Dobbhoff tube feeds being advanced. Patient was transfused 1 unit PRBCs yesterday. Urine culture with yeast from yesterday for which fluconazole being started. Had brief run of A. fib with RVR which improved with Lopressor IV, currently in sinus rhythm. 04/30: Worsening hypoxemic respiratory failure, currently on partial nonrebreather. Remains lethargic. WBC count increased from 14.6 today 20.7. Chest x-ray shows bilateral worsening infiltrates and small pleural effusions. Sodium 154, weight up by 8 KG. Albumin 1 mg Bumex 1. Also one dose of albumin. Remains in sinus tachycardia. Tmax 101.3 05/01: Patient was intubated yesterday for lack of airway protection, and severe hypoxemic respiratory failure from aspiration pneumonia involving multiple lobes. Patient is on the vent lethargic, no spontaneous eye opening. Chest x- ray remains unchanged. Remains intermittently febrile Tmax 101.3. WBC count improving 05/02: Remains critically ill with no improvement in mental status. Spiking fever of 101.7. Blood culture and sputum culture with staph aureus sputum also growing GNR, WBC count 22,000 now indicating worsening sepsis. Daughter still requesting aggressive care. Palliative care is following 05/03: S/P large area dominant hemisphere CVA. No neurological improvement. Now with pneumonia (infiltrate, fever, leukocytosis) and appropriate abx coverage. She will have a hard time surviving the hip fx, CVA, and pneumonia. Palliative Care needs to be a mainstay of our plan. 05/04: No improvement in neuro status. Sputum C&S allows us to narrow abx coverage to levaquin alone. Lungs remain quite congested. Enteral nutrition tolerated. 05/05: No improvement in neuro status. Moves left arm spontaneously. Flaccid right side. Unresponsive. Persistent mild hypoglycemia - will cut Levemir 50%. Abdomen more distended, check KUB. 05/06: CT head with massive left MCA infarction and > 1 cm shift in right handed woman. She opens eyes, does not track. 05/07: Patient open eyes. Attempts to respond. [place]ese speaking. Tolerating tube feeds. Positive bowel movement. Volume overloaded. Subjective 05/08: Tmax 99.4. Potassium being replaced. Ultrasound gallbladder currently pending. Transaminases are trending downward. Gently diurese. 05/09: Alk phos decreasing. Remains with good urine output. Neurological status not improving. 05/10: Fixed neuro deficit unchanged. Profound CVA. 05/11: Appears to track with eyes today. No improvement in motor function. Remains very edematous, diuretics doubled. 05/12: Continued thick secretions. Afebrile, leukocytosis resolved. 05/13: CT head with completed left MCA stroke, persistent edema and 5 mm shift away. Does not last long on SBTs - major decision now is trach/PEG. 05/14: Daughter has decided to proceed with trach and PEG. I have been pessimistic with her about chances for a meaningful recovery. 05/15: Plan for trach today. No change in neuro status. Still ventilator dependent. Objective Vital Signs Date Time Temp Pulse Resp B/P (MAP) Pulse Ox O2 Delivery O2 Flow Rate FiO2 05/15/17 07:39 97 45 05/15/17 07:00 Mechanical Ventilator 05/15/17 06:00 96 05/15/17 04:00 98.1 17 148/70 (96) Intake and Output 05/15/17 05/15/17 05/16/17 08:00 16:00 00:00 Intake Total 1207 ml Output Total 900 ml Balance 307 ml Result Diagram: 05/13/17 0740 05/15/17 0515 Imaging Last Impressions Chest X-Ray 05/07/17 0400 Signed Impressions: Service Date/Time: Sunday, May 07, 2017 04:38 - CONCLUSION: 1. Stable Low-lying ETT with tip approximately 1 cm above the valerie. 2. Mild interval progression of bilateral airspace consolidation exaggerated by patient rotation. 3. Increased small left pleural effusion. Alejo De La Vega MD Abdomen/Pelvis CT 05/07/17 0000 Signed Impressions: Service Date/Time: Sunday, May 07, 2017 13:23 - CONCLUSION: 1. Large left pneumothorax. 2. Bilateral lower lobe consolidation and bilateral moderate size pleural effusions. 3. Significant soft tissue thickening of the right lateral chest wall and left gluteus muscle. 4. Mild ascites. The findings were called to Dr. Carney. Deangelo Zamora MD Head CT 05/06/17 0000 Signed Impressions: Service Date/Time: Saturday, May 06, 2017 04:18 - CONCLUSION: 1. Evolving large left-sided MCA territory infarct with minimally improved [id number] subfalcine shift. 2. No intercurrent hemorrhage or other acute abnormality. Alejo De La Vega MD Abdomen X-Ray 05/06/17 0000 Signed Impressions: Service Date/Time: Saturday, May 06, 2017 17:42 - CONCLUSION: Dobbhoff feeding tube tip near the gastroduodenal junction. Obdulio Simms MD Hip and Pelvis X-Ray 05/05/17 0000 Signed Impressions: Service Date/Time: Friday, May 05, 2017 10:59 - CONCLUSION: Left proximal femur trochanteric/subtrochanteric fracture lucency visualized. Postoperative changes. Choco Mustafa MD Chest CT 04/30/17 0000 Signed Impressions: Service Date/Time: Sunday, April 30, 2017 09:20 - CONCLUSION: 1. Bilateral pulmonary infiltrates more pronounced within the lower lobes with tiny bilateral pleural effusions. Material seen filling the lower lobe bronchi bilaterally either related to purulent material or perhaps mucus plugging. Deangelo Wren Jr., MD Carotid Artery Ultrasound 04/24/17 0000 Signed Impressions: Service Date/Time: April 09:45 - CONCLUSION: 1. No hemodynamically significant carotid artery stenosis. Arnie Middleton MD Hip X-Ray 04/21/17 0000 Signed Impressions: Service Date/Time: Friday, April 21, 2017 11:36 - CONCLUSION: Fluoroscopic images during placement of intramedullary siomara left femur. Benja Ramsey MD Objective Remarks Gen: 76-year-old female HEENT: Pallor present. Moderate dark ET tube secretions Neck: Orally intubated. Chest/pulmonary: Scattered rhonchi. Chest tube d/c'd Cardiovascular: RRR. S1, S2, without murmur, rub GI/abdomen: Distended. Nontender. Active bowel sounds are present. Extremities: Warm bilaterally, anasarca 2+ upper and 2+ lower extremity edema. Incision sites over left hip, thigh ORIF site clean dry and intact. Neuro: Intubated, on no sedation. No eye opening today but grimaces. Dense right hemiplegia noted. Withdraws left upper extremity, Withdraws LLE. No change. Pupils 2 mm, react. Date of Insertion: May 02, 2017 A/P Assessment and Plan Neuro/Psych: Left MCA CVA - 12 mm of [id number]-fu-trwzo subfalcine herniation - right-sided hemiplegia Acute encephalopathy History CVA Follow neuro status closely. Continue Aspirin 325 mg by mouth daily Patient was not a candidate for thrombolysis per discussion with neurology and radiology. Repeat head CT 05/05 showed slight improvement in the midline shift and mass effect Neurosurgery consulted 04/30- Dr. López, recommended conservative management Neurology following - Dr. Malave On morphine 1-2 every 3 hours when necessary pain Cardiovascular: Hypertension IV fluids currently on hold due to edema As needed Antihypertensives to keep systolic blood pressure less than to 180 mmHg Echocardiogram 04/24 - EF 50 to 55%. Mild concentric LVH. Pulmonary: Acute hypoxic respiratory failure - aspiration possible HCAP Large left pneumothorax status post #10 Kisw[place]ili chest tube 05/07 PRVC 14/400// Ventilator bundle Ipratropium/albuterol aerosols every 6 hours with albuterol aerosols every 2 hours. Dyspnea Intubated on 04/30/17 for worsening hypoxemic respiratory failure, aspiration pneumonia Chest x-ray shows 05/08 revealed increasing infiltrate/small pleural effusion left side. Right-sided chest tube in place. CT of the chest 04/30/17 showed severe bibasilar consolidation, and evidence of aspiration Chest tube d/c'd 05/12 Daily SBTs. GI/liver: Elevated transaminases Hypoalbuminemia Moderate to severe protein calorie malnutrition Dobbhoff for tube feedings and medications. Continue tube feeding with Glucerna 1.5 goal 45 cc an hour On hold 05/08 due to possible cholecystostomy tube placement depending on ultrasound gallbladder Lansoprazole 30 mg daily for GI regimen Docusate sodium 100 twice a day, Senokot 8.6 twice a day, polyethylene glycol 17 grams twice a day and lactulose 30 cc 4 times a day Evaluate CT abdomen/pelvis 05/07 - mild ascites. Large left hemothorax. Right greater than left pleural effusion. Avoid hepatotoxic drugs LFTs improving Endocrine: Diabetes mellitus Detemir 20 units subcutaneous every 12 hours. Currently hold while nothing by mouth Sliding scale insulin Accu-Cheks to maintain euglycemia/low regimen Holding glimepiride 4 mill grams by mouth daily /Renal/FEN: Hypopotassemia Strict intake output, monitor and replete electrolytes, follow BUN/creatinine. Leavitt catheter placed for urinary retention on 04/26. Heme: Chronic Rivaroxaban use Leukocytosis Normocytic anemia Thrombocytosis Follow CBC and coags. On subcutaneous enoxaparin Hemoglobin currently stable. No indications for transfusion of blood proximally at this time ID: MSSA bacteremia Serratia/staph aureus pneumonia C glabrata UTI Pertinent cultures Urine culture 04/26/17 sofie glabrata Blood culture 04/29/17 1 out of 4 bottles staph aureus Sputum culture 04/30/17 staph aureus and Serratia. Blood cultures 2, sputum 1 and urine 05/08 pending -> Serratia On iv levaquin, oral flagyl MSK: Left Intertroch Hip Fx s/p IMN - POD 14 Vitamin D deficiency WBAT DC ginger today redress with Xeroform/Primapore Prophylaxis: SCDs. Enoxaparin 40 mg sq daily-cleared by Dr. Ananda SANDS - lansoprazole Overall impression: Devastating CVA. No improvement. Lengthy talk involving daughter and Palliative Care service yesterday. I re-enforced poor prognosis. We have been unable to wean the ventilator; she repeatedly fails SBTs.Daughter would like to proceed with tracheostomy today and PEG insertion when GI available. Charles Pedraza MD May 15, 2017 11:04
--- NOTE | 2017-05-15 14:47 | RADRPT ---
EXAM DATE/TIME: 05/15/2017 12:38 [place] COMPARISON: CHEST SINGLE AP, May 13, 2017, 15:22. INDICATIONS : Post tracheostomy. MEDICAL HISTORY : Hypertension. CVA. Confusion. Incontinence. Diabetes. Anxiety. SURGICAL HISTORY : Blood transfusions. ENCOUNTER: Subsequent ACUITY: 1 month PAIN SCORE: Non-responsive. LOCATION: Chest FINDINGS: A tracheostomy tube is noted in good position with its tip approximately 2 cm above the valerie. A fe eding tube has its tip in the distal stomach. Scattered pulmonary infiltrates are stable bilaterally . The heart is stable. CONCLUSION: 1. A tracheostomy tube in good position with its tip 2 cm above the valerie. 2. Stable scattered pulmonary infiltrates bilaterally. 3. Dobbhoff feeding tube has its tip in the distal stomach. Enzo Farooq MD on May 15, 2017 at 13:29 Board Certified Radiologist. This report was verified electronically.
--- NOTE | 2017-05-15 15:55 | HHI.FPPN ---
Subjective Remarks Ms Hein had no acute events overnight. Her daughter consented to day for tracheotomy and the procedure was performed by Kath Saleh and Milo. Pt is still getting CPAP trials and can tolerate 1.5-2 hours per day. No other change in status. (Chuy Camacho MD R1) Objective Vitals Vital Signs Date Time Temp Pulse Resp B/P (MAP) Pulse Ox O2 Delivery O2 Flow Rate FiO2 05/15/17 14:00 74 05/15/17 12:21 100 45 05/15/17 12:00 98.3 87 16 167/87 (113) 100 05/15/17 12:00 45 05/15/17 12:00 87 05/15/17 11:40 100 100 05/15/17 10:00 74 05/15/17 08:00 76 05/15/17 08:00 45 05/15/17 08:00 98.6 76 21 132/69 (90) 100 05/15/17 07:39 97 45 05/15/17 07:00 100 Mechanical Ventilator 40 05/15/17 06:00 96 05/15/17 04:56 96 45 05/15/17 04:00 45 05/15/17 04:00 98.1 82 17 148/70 (96) 100 05/15/17 04:00 82 05/15/17 02:00 73 05/15/17 01:34 96 45 05/15/17 00:00 98.0 77 15 139/61 (87) 99 05/15/17 00:00 45 05/15/17 00:00 77 05/14/17 22:27 99 45 05/14/17 22:00 75 05/14/17 20:50 95 45 05/14/17 20:00 97.7 80 25 143/69 (93) 95 05/14/17 20:00 80 05/14/17 20:00 45 05/14/17 19:00 100 Mechanical Ventilator 45 05/14/17 18:00 78 05/14/17 16:00 82 05/14/17 16:00 40 05/14/17 16:00 99.3 82 19 155/70 (98) 100 I/O 9/13/17 9/13/17 9/13/17 9/14/17 9/14/17 9/14/17 07:00 15:00 23:00 07:00 15:00 23:00 Intake Total 767 ml 894 ml 1207 ml Output Total 625 ml 1825 ml 900 ml Balance 142 ml -931 ml 307 ml IV Total 80 ml 57 ml 496 ml Tube Feeding 487 ml 597 ml 711 ml Other 200 ml 240 ml Output Urine Total 625 ml 1725 ml 800 ml Stool Total 100 ml 100 ml (Chuy Camacho MD R1) Result Diagram: 05/13/17 0740 05/15/17 0515 Objective Remarks CONSTITUTIONAL/GEN: Nonverbal, lying in bed. Intubated with intermittent CPAP trials, receiving tube feeds. Patient's eyes remain closed despite sternal rub; she does grasp my hand today HEAD: Normocephalic. Atraumatic. G-tube and endotracheal tube in place. LUNGS: Coarse breath sounds bilaterally but moving air well CARDIOVASCULAR: Regular rate and regular rhythm. Lower extremity bilateral pitting edema, improving. Right hand still puffy, but improving. Left arm much improved today without any pitting edema. GI/ABD: less distended and less tense with much less edema, without masses, without organomegaly. NEURO: Intubated; eyes closed. Patient seems to be asleep today. Patient has flaccid paralysis on the right side. Moves left side spontaneously. : Dark yellow urine draining into moser bag MUSC: SCDs on bilateral lower extremities. Pedal pulses weak. SKIN: Erythematous sacral wound Procedures ORIF 04/21/17 Intubation 04/30/17 Medications and IVs Current Medications Medications (Trade) Dose Ordered Sig/Zeferino Route Start Time Stop Time Status Last Admin (Zofran Inj) 4 mg Q6H PRN IV PUSH 04/20/17 15:00 04/30/17 02:28 (Morphine Inj) 1 mg Q3H PRN IV 04/20/17 17:15 04/28/17 18:15 (Morphine Inj) 2 mg Q3H PRN IV 04/20/17 17:15 04/30/17 02:29 (Narcan Inj) 0.4 mg UNSCH PRN IV 04/20/17 17:15 (Milk Of Magnesia Liq) 30 ml Q12H PRN PO 04/20/17 20:30 (Senokot) 17.2 mg Q12H PRN PO 04/20/17 20:30 04/23/17 22:55 (Dulcolax Supp) 10 mg DAILY PRN RECTAL 04/20/17 20:30 (Oscal-D 250-125) 250 mg TID PO 04/21/17 13:00 05/15/17 15:00 (Vitamin D3) 5,000 units DAILY PO 04/22/17 09:00 05/15/17 08:58 (NS Flush) 2 ml BID IV FLUSH 04/24/17 21:00 05/14/17 21:00 (NS Flush) 2 ml UNSCH PRN IV FLUSH 04/24/17 09:30 (Glucagon Inj) 1 mg UNSCH PRN IM/SQ 04/24/17 18:15 (Aspirin) 325 mg DAILY DOBHOFF 04/27/17 09:00 05/15/17 08:58 (D50w (Syr) Inj) 25 ml UNSCH PRN IV 04/26/17 20:30 05/11/17 01:35 (Lopressor Inj) 5 mg Q5M PRN IV PUSH 04/27/17 04:00 05/03/17 18:26 Potassium Chloride 100 ml @ 50 mls/hr Q2H PRN IV 04/27/17 08:45 Potassium Chloride 100 ml @ 50 mls/hr Q2H PRN IV 04/27/17 08:45 05/15/17 06:23 (K-Lyte Cl Eff) 50 meq UNSCH PRN PO 04/27/17 08:45 Potassium Chloride 100 ml @ 25 mls/hr UNSCH PRN IV 04/27/17 08:45 05/04/17 19:07 Potassium Chloride 100 ml @ 50 mls/hr Q2H PRN IV 04/27/17 08:45 04/29/17 12:15 Magnesium Sulfate 4 gm/Sodium Chloride 100 ml @ 50 mls/hr UNSCH PRN IV 04/27/17 08:45 (Mag-Ox) 800 mg UNSCH PRN PO 04/27/17 08:45 Magnesium Sulfate 2 gm/Sodium Chloride 100 ml @ 50 mls/hr UNSCH PRN IV 04/27/17 08:45 (K-Phos) 2,000 mg Q4H PRN PO 04/27/17 08:45 04/28/17 15:38 Sodium Phosphate 30 mmol/Sodium Chloride 250 ml @ 42 mls/hr UNSCH PRN IV 04/27/17 08:45 04/27/17 23:59 (K-Phos) 2,000 mg UNSCH PRN PO/TUBE 04/27/17 08:45 05/08/17 06:32 Potassium Phosphate 30 mmol/ Sodium Chloride 260 ml @ 42 mls/hr UNSCH PRN IV 04/27/17 08:45 05/04/17 20:54 (NovoLOG SUPPLEMENTAL SCALE) 1 ACHS SLIDING SCALE SQ 04/28/17 16:00 05/14/17 21:00 (Lovenox Inj) 40 mg Q24H SQ 05/01/17 08:00 05/14/17 09:55 (Colace Liq) 100 mg Q12HR PO 05/07/17 21:00 05/11/17 09:08 (Senna Liq) 8.8 mg BID OG-TUBE 05/07/17 21:00 05/11/17 09:09 (Lactulose Liq) 30 ml QID PO 05/07/17 18:00 05/14/17 18:16 (Miralax) 17 gm BID OG-TUBE 05/07/17 21:00 05/11/17 09:08 (Albuterol Neb) 2.5 mg Q2HR NEB PRN NEB 05/07/17 13:00 05/14/17 08:36 (Prevacid Odt) 30 mg DAILY NG 05/08/17 09:00 05/15/17 08:58 (Lasix Inj) 40 mg BID@0900,1800 IV PUSH 05/11/17 09:00 05/15/17 08:57 (Levemir Inj) 5 units Q12H SQ 05/11/17 21:00 05/14/17 21:14 (Beneprotein Powder) 1 pack TID G-TUBE 05/12/17 13:00 05/15/17 15:01 (fentaNYL INJ) 100 mcg LINK ASSEMBLER IV PUSH 05/14/17 17:45 05/15/17 17:44 05/15/17 15:15 (Versed Inj) 2 mg LINK ASSEMBLER IV PUSH 05/14/17 17:45 05/15/17 17:44 05/15/17 15:15 (Nimbex Inj) 12 mg LINK ASSEMBLER IV PUSH 05/14/17 18:00 05/15/17 17:59 (Chuy Camacho MD R1) Urinary Catheter: Yes Moser insert reason: Obstruction/Retention Date of Insertion: May 02, 2017 (Chuy Camacho MD R1) A/P Assessment and Plan 76 y/o female with HTN, DM, CVA admitted for DKA and hip fracture. Now with massive left MCA stroke, right hemiplegia and midline shift resolving. Neuro and electrical automation engineer consulted. Working with palliative care and family for goals of care. 05/07 CT abdomen/pelvis shows large pneumothorax on left side decompressed with chest tube. Plan to pull chest tube today on 05/12. -Overall poor prognosis, pursuing goals of care discussion with daughter (HCPOA) , but at this time daughter wishes continued intervention -05/09 - extensive discussion with daughter today indicates no willingness to pursue comfort measures only. Daughter continues to ask for aggressive management of her mother's condition; will continue to engage in this discussion -05/11--CXR w/bilateral pleural effusions vs pulmonary edema--diuresis ordered -05/14 -- little interval change. Wt down from 70 kg on 05/10 to 59kg today. CPAP trials progressing. Family meeting with daughter yielded no change in code status or goals of care. Plan is to re-join with discussing trach and PEG feeding tube with daughter in 2-3 days time. -05/15 -- Daughter consented to tracheostomy and procedure was performed today. CPAP trials still progressing. No other changes. Discharge Planning Pending stroke progression and discussion for goals of care (Chuy Camacho MD R1) Attending Attestation Patient seen and examined. Case reviewed and discussed with the resident team. Agree with plan of care as discussed with me and documented in the resident note. unfortunately, I have never met her daughter. appreciate all the help of the Intensivists and palliative as her daughter from reports is struggling with her mothers condition and severity of illness (Dawn Guajardo MD) Problem List: (1) Acute CVA (cerebrovascular accident) ICD Codes: I63.9 - Cerebral infarction, unspecified Status: Acute Plan: Patient found minimally responsive with neurological deficits around 0820 04/24. Stat CT of head was ordered, which showed large left MCA infarct. Diffuse edema throughout the left MCA distribution, suggest completed infarct. This was discussed and was not a candidate for intracranial intervention. CT (04/30): Reduction in midline shift to 11mm. Unchanged large left MCA infarction. CT head (05/06) shows: Evolving large left-sided MCA territory infarct with minimally improved [id number] subfalcine shift. No intercurrent hemorrhage or other acute abnormality. Echocardiogram- The left ventricular systolic function is low normal with an estimated ejection fraction in the range of 50-55%. Mild concentric left ventricular hypertrophy. Normal left ventricular size. Qzgye-gi-fryv mitral valve regurgitation. Carotid Artery US- No hemodynamically significant carotid stenosis -Consulted electrical automation engineer, appreciate recs -Intubated/sedated; does not recommend tracheostomy -IV hydration, watch for hypotension. -Keep systolic to less than 220 -Lactated Ringer's reduced to 75 ml/hr -Poor prognosis -Neurosurgery consulted -Recommended conservative management -Keep Na in 145-154 range -Tube feeds: Glucerna 1.5 mLs for diet via Dobbhoff tube -Director Patient Financial Services consult for management and recs -Added beneprotein to G-tube -Consult palliative care-appreciate recs -Case discussed with daughter in-person about goals of care, limited treatment options, and poor prognosis. -Daughter continues to want aggressive care. Wishes to continue aggressive medical treatment despite prognosis -Neurology consulted-appreciate recs -Rectal ASA -Lovenox 40mg daily (2) Sepsis ICD Codes: A41.9 - Sepsis, unspecified organism Status: Acute Plan: Impression: Pt met SIRS criteria with tachycardia, leukocytosis Leukocytosis resolved today. Cultures: 05/07 Blood cultures and sputum cultures negative to date 04/30 Sputum culture with staph, Serratia 04/29 blood culture with staph -See antibiotics as below -Culture results as below -Monitor vitals (3) HCAP (healthcare-associated pneumonia) ICD Codes: J18.9 - Pneumonia, unspecified organism Status: Acute Plan: Suspect possible HCAP. Persistent leukocytosis. Possible aspiration Chest CT (04/30): Bilateral pulmonary infiltrates more pronounced within lower lobes with b/l pleural effusions. Material in lower lobe bronchi b/l, purulent or mucus plugging 04/30 Sputum culture showing staph aureus and Serratia Marcescens Legionella and strep pneumo urine tests negative CXR 05/02: Increased airspace opacity bilaterally. The pattern may represent pulmonary edema. There is likely a left pleural effusion. CXR 05/08: Stable diffuse consolidation of right warm to much lesser extent left perihilar region consistent with pneumonia or asymmetric pulmonary vascular congestion CXR 05/09: no pneumothorax, but small subcutaneous emphysema in left chest, patchy opacity in right lower lung consistent with pneumonia or pulmonary vascular congestion. Continue antibiotic therapy as per ID recs -Levaquin IV 750 mg (05/04- ) HCAP -Cefepime 2g IV daily restarted 05/14 -Repeat blood cultures (05/07) pending , with 1/ positive; possible contaminant -Sputum cx 05/07 reveals Serratia marascens susceptible to cefepime, erta/imi, genta, tobra, bactrim and levo--continuing levaquin as above -Duonebs treatments q6h Antibiotic History -Discontinued Cefepime 2g IV daily (04/30 - d/c 05/04 ) -Discontinued Vancomycin IV (04/30 - d/c 05/04 ) -Discontinued Flagyl 500mg q8h (04/29 - 05/13) (4) Yeast UTI ICD Codes: B37.49 - Other urogenital candidiasis Status: Resolved Plan: UA showed glucose, large number of leukocytes esterase, innumerable WBCs , rare bacteria, and few yeast Urine culture shows Lea Glabrata; however, high GGT and Alk Phos require reducing hepatotoxic drugs -D/C Micafungin 100mg IV daily as it is hepatically metabolized -Urine cx 05/08 NGTD (5) Abdominal distension ICD Codes: R14.0 - Abdominal distension (gaseous) Status: Acute Plan: Impression: Abdominal distension much improved today; first noted on exam 05/05 with serial KUBs neg for etiology. In association with transaminase elevation and Alk P >1k and GGT elevation. s/p large BM 05/07 per nursing staff 05/06 - CT abdomen/pelvis- large left pneumothorax, bilateral lower lobe consolidation and bilateral moderate-sized pleural effusions, significant soft tissue thickening of right lateral chest wall and left gluteus. Mild ascites 05/09 - abdominal distension unchanged; however, LFTs resolving following chest tube -Continue to monitor at this time -Continue to follow LFTs 05/11 - abdominal distention seems to be related to diffuse edema, trial of Lasix 20 mg IV twice a day, which was increased to 40 mg IV twice a day 05/12 - much less abdominal distention today. Significant improvement with significant net diuresis of almost 4 L. 05/14 - continues to improve (6) Fluid overload ICD Codes: E87.70 - Fluid overload, unspecified Status: Acute Plan: Systems Mgr noted fluid overload -Lasix IV bid -Metolazone and Bumex d/c'd (7) Pneumothorax ICD Codes: J93.9 - Pneumothorax, unspecified Status: Resolved Plan: Impression: Noticed on 05/06 CT abdomen/pelvis- large left pneumothorax, bilateral lower lobe consolidation and bilateral moderate-sized pleural effusions. S/P chest tube placement. Chest tube to waterseal for the last few days. Chest tube output 50 mL or less for the past 4 days, including today. -Chest tube pulled on 05/12/17 -Follow up chest x-ray today -Chest tube pulled 05/13 (8) Type 2 diabetes mellitus ICD Codes: E11.9 - Type 2 diabetes mellitus without complications Status: Chronic Plan: Admitted for DKA which has now resolved. Hemoglobin A1C is 12.9. Diabetes Type I is uncontrolled. -Continue Levemir 10 units BID due to hypoglycemia at higher dose -Medium dose insulin sliding scale with goal blood glucose between 140 and 180 -Glucerna for NG tube feedings -D/C Regular accuchecks (9) Atrial fibrillation ICD Codes: I48.91 - Unspecified atrial fibrillation Status: Acute Plan: Hx of intermittent Afib. Resolved with administration of Lopressor. -Continue to monitor -Lopressor PRN (10) Hip fracture ICD Codes: S72.009A - Fracture of unspecified part of neck of unspecified femur , initial encounter for closed fracture Status: Acute Plan: S/P left hip reduction and intramedullary nail fixation on 04-21-17 -Consult orthopedics-appreciate recs * WBAT * Daily dressing changes -Calcium/Vitamin D -Fluids as above -Tylenol, morphine PRN pain (11) Hypertension ICD Codes: I10 - Essential (primary) hypertension Status: Acute Plan: IV hydration. BPs wnl overnight -Continue fluids as above -Antihypertensives to keep SBP<180 -Lasix or Bumex for diuresis as required (12) On mechanically assisted ventilation ICD Codes: Z99.11 - Dependence on respirator [ventilator] status Plan: Impression: On CPAP trial to wean off ventilation; 40% FiO2 -Continue weaning trials as tolerated (13) Elevated LFTs ICD Codes: R79.89 - Other specified abnormal findings of blood chemistry Plan: Impression: LFT elevations with alkaline phosphatase gradually rising from 351-1931 and AST rising from 50s to 217. Liver/biliary etiology expected as GGT 787. Gallbladder ultrasound obtained by electrical automation engineer 05/08; focally unremarkable in appearance of gallbladder -Incrementally resolving since chest tube placement -Monitor at this time (14) Sacral decubitus ulcer ICD Codes: L89.159 - Pressure ulcer of sacral region, unspecified stage Plan: Patient with beginnings of a sacral decubitus ulcer. -Wound care consult ordered and appreciated (15) Fluids, Electrolytes, and Nutrition Status: Acute Plan: Fluids: IVF as above Electrolyte: on electrolyte protocol Nutrition: Glucerna tube feeds, added beneprotein DVT ppx: SCDs/lovenox 40 mg daily GI ppx: protonix Colace, fleet enema mineral oil (Chuy Camacho MD R1) Problem Qualifiers (1) Sepsis: Qualified Codes: A41.9 - Sepsis, unspecified organism (2) Fluid overload: Qualified Codes: E87.79 - Other fluid overload (3) Pneumothorax: (4) Type 2 diabetes mellitus: Qualified Codes: E11.9 - Type 2 diabetes mellitus without complications (5) Atrial fibrillation: Qualified Codes: I48.0 - Paroxysmal atrial fibrillation (6) Hip fracture: (7) Hypertension: Qualified Codes: I10 - Essential (primary) hypertension Chuy Camacho MD R1 May 15, 2017 15:55 Dawn Guajardo MD May 16, 2017 17:55
--- NOTE | 2017-05-15 17:03 | HHI.NSPN ---
(Rene Reed) History Chief Complaint: Unable to obtain due to the patient's clinical condition. 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 05/03/2017: Remains intubated. Minimal eye opening to sternal rub. Grasps left hand good strength to command. 05/06: Patient continues to be intubated and off any sedation. She had a repeat CT brain this morning which demonstrated an evolving large left-sided MCA territory infarct with minimal improvement in the [id number] subfalcine shift. 05/07/17: Remains intubated. Awake and relatively alert. Minimally disconjugate left gaze and response to voice. Moves left upper and lower extremity well to command. CPAP trials 05/08: Patient still is intubated and is on pressure controlled ventilation. She is not on any sedation and arouses to noxious stimulation. The patient was noted to have a left-sided pneumothorax on her chest x-ray yesterday and the Care Transition Coordinator placed a tube thoracostomy. 05/09: The patient is awake and fairly alert when seen. She does interact readily. The left-sided tube thoracostomy remains in place. 05/10: The patient remains intubated and mechanically ventilated. Initially the patient had her eyes closed but did follow commands. A few minutes later she was noted to have her eyes open without any stimulation. 05/11: This morning the patient is noted to have her eyes open and does appear to look about the room. She does follow commands. She remains intubated and mechanically ventilated. 05/13: When seen the patient is intubated without any sedation. She does not open her eyes to any stimulation and it is questionable whether she did follow the command to squeeze with the left hand. The left-sided tube thoracostomy has been removed since the patient was last seen. 05/15: The patient was trached earlier today. She briefly had her eyes open in response to her daughter's voice but quickly drifts back off to sleep. (Rene Reed) System Review Comments Unable to obtain due to the patient's clinical condition. (Rene Reed) Exam Results 05/13/17 05/13/17 05/14/17 05/14/17 05/15/17 05/15/17 06:00 18:00 06:00 18:00 06:00 18:00 Intake Total 730 ml 450 ml 2285 ml 894 ml 1107 ml 100 ml Output Total 1300 ml 1200 ml 1825 ml 900 ml Balance -570 ml 450 ml 1085 ml -931 ml 207 ml 100 ml IV Total 54 ml 450 ml 625 ml 57 ml 396 ml 100 ml Tube Feeding 676 ml 980 ml 597 ml 711 ml Other 680 ml 240 ml Output Urine Total 1300 ml 1200 ml 1725 ml 800 ml Stool Total 0 ml 0 ml 100 ml 100 ml Vital Signs Date Time Temp Pulse Resp B/P (MAP) Pulse Ox O2 Delivery O2 Flow Rate FiO2 05/15/17 14:00 74 05/15/17 12:21 100 45 05/15/17 12:00 98.3 87 16 167/87 (113) 100 05/15/17 12:00 45 05/15/17 12:00 87 05/15/17 11:40 100 100 05/15/17 10:00 74 05/15/17 08:00 76 05/15/17 08:00 45 05/15/17 08:00 98.6 76 21 132/69 (90) 100 05/15/17 07:39 97 45 05/15/17 07:00 100 Mechanical Ventilator 40 05/15/17 06:00 96 05/15/17 04:56 96 45 05/15/17 04:00 45 05/15/17 04:00 98.1 82 17 148/70 (96) 100 05/15/17 04:00 82 05/15/17 02:00 73 05/15/17 01:34 96 45 05/15/17 00:00 98.0 77 15 139/61 (87) 99 05/15/17 00:00 45 05/15/17 00:00 77 05/14/17 22:27 99 45 05/14/17 22:00 75 05/14/17 20:50 95 45 05/14/17 20:00 97.7 80 25 143/69 (93) 95 05/14/17 20:00 80 05/14/17 20:00 45 05/14/17 19:00 100 Mechanical Ventilator 45 05/14/17 18:00 78 05/14/17 16:00 82 05/14/17 16:00 40 05/14/17 16:00 99.3 82 19 155/70 (98) 100 05/14/17 15:25 100 45 05/14/17 14:00 78 05/14/17 12:00 98.2 75 25 98/50 (66) 100 05/14/17 12:00 45 05/14/17 12:00 75 05/14/17 11:00 93 50 05/14/17 10:00 94 05/14/17 09:45 50 05/14/17 08:00 98.6 73 15 129/61 (83) 95 05/14/17 08:00 73 05/14/17 08:00 40 05/14/17 07:35 99 35 05/14/17 07:00 100 Mechanical Ventilator 40 05/14/17 06:00 74 05/14/17 04:20 98 40 05/14/17 04:00 98.5 80 14 148/80 (102) 97 05/14/17 04:00 40 05/14/17 04:00 80 05/14/17 02:00 79 05/14/17 01:10 95 40 05/14/17 00:00 98.3 72 14 122/59 (80) 98 05/14/17 00:00 72 05/14/17 00:00 40 05/13/17 22:06 99 40 05/13/17 22:00 75 05/13/17 20:00 40 05/13/17 20:00 97.9 76 14 129/81 (97) 98 05/13/17 20:00 73 05/13/17 19:02 95 40 05/13/17 19:00 99 Mechanical Ventilator 40 05/13/17 18:00 75 05/13/17 16:00 40 05/13/17 16:00 99.1 76 14 131/62 (85) 100 05/13/17 16:00 76 05/13/17 15:40 100 40 05/13/17 14:00 87 05/13/17 12:00 80 05/13/17 12:00 40 05/13/17 12:00 98.5 86 25 134/62 (86) 100 05/13/17 11:00 100 40 05/13/17 10:35 40 05/13/17 10:00 80 05/13/17 08:19 99 40 05/13/17 08:00 78 05/13/17 08:00 40 05/13/17 08:00 97.9 78 14 133/63 (86) 100 05/13/17 07:00 100 Mechanical Ventilator 40 05/13/17 06:00 72 05/13/17 04:20 100 40 05/13/17 04:00 97.8 78 16 113/70 (84) 100 05/13/17 04:00 40 05/13/17 04:00 100 100 05/13/17 04:00 78 05/13/17 02:00 80 05/13/17 01:02 100 40 05/13/17 00:00 98.1 80 14 112/55 (74) 100 05/13/17 00:00 40 05/13/17 00:00 80 05/12/17 22:03 100 40 05/12/17 22:00 82 05/12/17 20:00 40 05/12/17 20:00 97.8 86 14 109/58 (75) 100 05/12/17 20:00 86 05/12/17 19:00 100 Mechanical Ventilator 45 05/12/17 18:00 95 05/12/17 17:10 100 40 (Rene Reed) Physical Examination GENERAL: Lethargic, briefly arouses to voice, trached w/o any sedation. No apparent distress. SKIN: Cool & dry w/generalised dependent edema, w/o any evident rashes, ulcerations or lesions. HEENT: Normocephalic, atraumatic. PERRL. Right nare feeding tube. NECK: No JVD, trachea midline. CARDIOVASCULAR: S1S2 w/RRR w/o M/G/R, radial & pedal pulses 1+ bilaterally, cap refill < 2 sec, generalised dependent edema. Monitor appears to be sinus rhythm w/o any ectopy noted. RESPIRATORY: Coarse bilaterally, equal excursion, nonlaboured, trached and on pressure controlled ventilation. GASTROINTESTINAL: Abdomen soft, appears nontender, bowel sounds not appreciated. Feeding tube w/enteral feeds. MUSCULOSKELETAL: No evident deformity or clubbing. NEUROLOGICAL: Trached w/o any sedation. GCS 5T (E3 V1T M1). Slight eye opening to daughter's voice but quickly drifts back off, and then again w/central noxious stimulation. No motor response to extremities to either command or local or central noxious stimulation. (Rene Reed) Lab, Micro, Other Results Recent Impressions Chest X-Ray 05/15/17 0000 Signed Impressions: Service Date/Time: May 12:38 - CONCLUSION: 1. A tracheostomy tube in good position with its tip 2 cm above the valerie. 2. Stable scattered pulmonary infiltrates bilaterally. 3. Dobbhoff feeding tube has its tip in the distal stomach. Enzo Farooq MD Head CT 05/13/17 0600 Signed Impressions: Service Date/Time: Saturday, May 13, 2017 04:07 - CONCLUSION: 1. Evolving large left MCA distribution infarct with 5 mm left to right shift, improved since prior exam. Jaime Velasquez MD Chest X-Ray 05/13/17 0000 Signed Impressions: Service Date/Time: Saturday, May 13, 2017 15:22 - CONCLUSION: 1. Increased aeration with apparent decrease in pulmonary opacities. 2. Abnormal opacity remains at the left lung base. Jose R Casanova MD Laboratory Tests Test 05/13/17 07:40 05/13/17 09:00 05/13/17 23:23 05/14/17 04:23 White Blood Count 10.1 TH/MM3 Red Blood Count 2.42 MIL/MM3 Hemoglobin 7.8 GM/DL Hematocrit 23.5 % Mean Corpuscular Volume 97.0 FL Mean Corpuscular Hemoglobin 32.3 PG Mean Corpuscular Hemoglobin Concent 33.3 % Red Cell Distribution Width 17.9 % Platelet Count 384 TH/MM3 Mean Platelet Volume 8.2 FL Blood Urea Nitrogen 30 MG/DL 35 MG/DL Creatinine 0.42 MG/DL 0.37 MG/DL Random Glucose 151 MG/DL 145 MG/DL Total Protein 4.9 GM/DL Calcium Level 7.4 MG/DL 7.8 MG/DL Sodium Level 140 MEQ/L 143 MEQ/L Potassium Level 2.8 MEQ/L 2.9 MEQ/L 3.7 MEQ/L 3.5 MEQ/L Chloride Level 103 MEQ/L 105 MEQ/L Carbon Dioxide Level 31.7 MEQ/L 32.6 MEQ/L Anion Gap 5 MEQ/L 5 MEQ/L Estimat Glomerular Filtration Rate 147 ML/MIN 171 ML/MIN Protein Corrected Calcium 8.6 MG/DL B-Type Natriuretic Peptide 594 PG/ML Test 05/14/17 22:30 05/15/17 05:15 Potassium Level 3.1 MEQ/L 4.0 MEQ/L Blood Urea Nitrogen 35 MG/DL Creatinine 0.40 MG/DL Random Glucose 173 MG/DL Calcium Level 7.8 MG/DL Sodium Level 143 MEQ/L Chloride Level 107 MEQ/L Carbon Dioxide Level 29.5 MEQ/L Anion Gap 7 MEQ/L Estimat Glomerular Filtration Rate 156 ML/MIN (Rene Reed) Medical Decision Making Impression and Plan Impression: 1. Large left MCA CVA 2. Persistent right hemiplegia 3. Aspiration pneumonia 4. Hypoxic respiratory failure Sodium 143 this morning. Poor neurological response, no motor movement to any stimulation, brief eye opening to verbal. Plan: Primary management per Care Transition Coordinator. Frequent neuro checks. Continue ventilatory support. Okay for Lovenox from neurosurgical standpoint. Will follow intermittently while in the hospital. (Rene Reed) Attending Statement The exam, history, and the medical decision-making described in the above note were completed with the assistance of the mid-level provider. I reviewed and agree with the findings presented. I attest that I had a [id number] encounter with the patient on the same day, and personally performed and documented my assessment and findings in the medical record. Neurologic exam improving a little slowly 05/13/17 CT scan head with improving mass effect Continue conservative treatment-neurologic exam monitoring (Parker López MD) Rene Reed May 15, 2017 17:03 Parker López MD Jun 09, 2017 07:18
--- NOTE | 2017-05-15 17:13 | PD.CONS ---
HPI History of Present Illness This is a 76 year old female wit multiple medical problems who presented to the hypertension, diabetes, CVA who was brought to the ER by [facility] on 04/20/17 for evaluation of altered mental status and fall. She was found to have a displaced intertrochanteric fracture and underwent left hip reduction and intramedullary nail fixation on 04/21/17. Her hospitalization was complicated by a large left MCA infarct with diffuse edema throughout the left MCA distribution and she was not a candidate for intracranial intervention due to completed appearance of infarct. Patient was transferred to ICU for further management. She has since remained in the intensive care unit, being treated for her left MCA CVA with 12 mm of left to right subfalcine herniation and right sided hemiplegia, encephalopathy, htn, acute hypoxic respiratory failure and pneumonia, large left pneumothorax, diabetes, MSSA bacteremia, UTI, and electrolyte abnormalities. She has required prolonged mechanical ventilation and underwent tracheostomy placement earlier today. GI has been consulted for PEG tube placement. The railway signal electrician is following and has recommended Glucerna 1.5 @ 45 mls/hr. (Fariba Olivera) [facility] Past Medical History Hypertension Ischemic cardiomyopathy Diabetes mellitus History of CVA Past Surgical History None per EMR (Fariba Olivera) Coded Allergies: No Known Allergies (Unverified , 04/20/17) Medications Allergies Coded Allergies Type Severity Reaction Last Updated Verified No Known Allergies 04/20/17 No Active Scripts Medications Dose Route/Sig Max Daily Dose Days Date Category Dose Instructions Calcium 600+D 200 (Calcium Carbonate-Vitamin D) 600-200 Mg-Unit Tab 1 Tab PO BID 30 04/23/17 Rx Vitamin D3 (Cholecalciferol) 2,000 Unit Cap 2,000 Units PO DAILY 04/23/17 Rx Ergocalciferol 50,000 Unit Cap 50,000 Units PO Q7D 04/23/17 Rx Xarelto (Rivaroxaban) 10 Mg Tab 10 Mg PO DAILY 14 04/23/17 Rx Hydrocodone-Acetaminophen 7.5-325 mg Tab 1 Tab PO Q4H PRN 04/23/17 Rx Glimepiride 4 Mg Tab 4 Mg PO DAILY@1600 04/20/17 Reported Take with breakfast or first main meal Family History According to EMR Positive for cardiac disease. Patient has one daughter who is alive and well. Social History Unable to obtain (Fariba Olivera) Review of Systems ROS Unable to obtain (Fariba Olivera) GI Exam Vitals I&O Vital Signs Date Time Temp Pulse Resp B/P (MAP) Pulse Ox O2 Delivery O2 Flow Rate FiO2 05/15/17 14:00 74 05/15/17 12:21 100 45 05/15/17 12:00 98.3 87 16 167/87 (113) 100 05/15/17 12:00 45 05/15/17 12:00 87 05/15/17 11:40 100 100 05/15/17 10:00 74 05/15/17 08:00 76 05/15/17 08:00 45 05/15/17 08:00 98.6 76 21 132/69 (90) 100 05/15/17 07:39 97 45 05/15/17 07:00 100 Mechanical Ventilator 40 05/15/17 06:00 96 05/15/17 04:56 96 45 05/15/17 04:00 45 05/15/17 04:00 98.1 82 17 148/70 (96) 100 05/15/17 04:00 82 05/15/17 02:00 73 05/15/17 01:34 96 45 05/15/17 00:00 98.0 77 15 139/61 (87) 99 05/15/17 00:00 45 05/15/17 00:00 77 05/14/17 22:27 99 45 05/14/17 22:00 75 05/14/17 20:50 95 45 05/14/17 20:00 97.7 80 25 143/69 (93) 95 05/14/17 20:00 80 05/14/17 20:00 45 05/14/17 19:00 100 Mechanical Ventilator 45 05/14/17 18:00 78 I/O 05/14/17 05/14/17 05/14/17 05/15/17 05/15/17 05/15/17 07:00 15:00 23:00 07:00 15:00 23:00 Intake Total 767 ml 894 ml 1207 ml Output Total 625 ml 1825 ml 900 ml Balance 142 ml -931 ml 307 ml IV Total 80 ml 57 ml 496 ml Tube Feeding 487 ml 597 ml 711 ml Other 200 ml 240 ml Output Urine Total 625 ml 1725 ml 800 ml Stool Total 100 ml 100 ml Imaging Last Impressions Chest X-Ray 05/15/17 0000 Signed Impressions: Service Date/Time: May 12:38 - CONCLUSION: 1. A tracheostomy tube in good position with its tip 2 cm above the valerie. 2. Stable scattered pulmonary infiltrates bilaterally. 3. Dobbhoff feeding tube has its tip in the distal stomach. Enzo Farooq MD Head CT 05/13/17 0600 Signed Impressions: Service Date/Time: Saturday, May 13, 2017 04:07 - CONCLUSION: 1. Evolving large left MCA distribution infarct with 5 mm left to right shift, improved since prior exam. Jaime Velasquez MD Abdomen X-Ray 05/10/17 0000 Signed Impressions: Service Date/Time: Wednesday, May 10, 2017 22:08 - CONCLUSION: Tip of Dobbhoff catheter is in the antrum of the stomach. Sage Adler MD Gall Bladder Ultrasound 05/08/17 0000 Signed Impressions: Service Date/Time: May 08:23 - CONCLUSION: Focally unremarkable appearance of the gallbladder Obdulio Chun MD Abdomen/Pelvis CT 05/07/17 0000 Signed Impressions: Service Date/Time: Sunday, May 07, 2017 13:23 - CONCLUSION: 1. Large left pneumothorax. 2. Bilateral lower lobe consolidation and bilateral moderate size pleural effusions. 3. Significant soft tissue thickening of the right lateral chest wall and left gluteus muscle. 4. Mild ascites. The findings were called to Dr. Carney. Deangelo Zamora MD Hip and Pelvis X-Ray 05/05/17 0000 Signed Impressions: Service Date/Time: Friday, May 05, 2017 10:59 - CONCLUSION: Left proximal femur trochanteric/subtrochanteric fracture lucency visualized. Postoperative changes. Choco Mustafa MD Chest CT 04/30/17 0000 Signed Impressions: Service Date/Time: Sunday, April 30, 2017 09:20 - CONCLUSION: 1. Bilateral pulmonary infiltrates more pronounced within the lower lobes with tiny bilateral pleural effusions. Material seen filling the lower lobe bronchi bilaterally either related to purulent material or perhaps mucus plugging. Deangelo Wren Jr., MD Carotid Artery Ultrasound 04/24/17 0000 Signed Impressions: Service Date/Time: April 09:45 - CONCLUSION: 1. No hemodynamically significant carotid artery stenosis. Arnie Middleton MD Hip X-Ray 04/21/17 0000 Signed Impressions: Service Date/Time: Friday, April 21, 2017 11:36 - CONCLUSION: Fluoroscopic images during placement of intramedullary siomara left femur. Benja Ramsey MD Laboratory Test 05/14/17 22:30 05/15/17 05:15 Potassium Level 3.1 MEQ/L 4.0 MEQ/L Blood Urea Nitrogen 35 MG/DL Creatinine 0.40 MG/DL Random Glucose 173 MG/DL Calcium Level 7.8 MG/DL Sodium Level 143 MEQ/L Chloride Level 107 MEQ/L Carbon Dioxide Level 29.5 MEQ/L Anion Gap 7 MEQ/L Estimat Glomerular Filtration Rate 156 ML/MIN Date/Time Source Procedure Growth Status 05/08/17 04:44 Blood Peripheral Aerobic Blood Culture - Final NO GROWTH IN 5 DAYS Complete 05/08/17 04:44 Blood Peripheral Anaerobic Blood Culture - Final NO GROWTH IN 5 DAYS Complete 05/07/17 21:30 Sputum Endotracheal Gram Stain - Final Complete 05/07/17 21:30 Sputum Culture - Final Serratia Marcescens Complete 05/08/17 04:20 Urine Catheterized Urine Urine Culture - Final NO GROWTH IN 48 HOURS. Complete Physical Examination HEENT: Normocephalic; atraumatic; no jaundice. CHEST: Tracheostomy. Course breath sounds CARDIAC: Regular rate and rhythm with no murmur gallop or rubs. ABDOMEN: Soft, obese, nondistended, nontender; no hepatosplenomegaly; bowel sounds are present in all four quadrants. EXTREMITIES: Generalized edema. WATER FITNESS INSTRUCTOR: Sedated on vent. (Fariba Olivera) Assessment and Plan Plan ASSESSMENT: - Dysphagia, FEN. Brought to the ER for AMS/Fall and found to have displaced intertrochanteric fracture, s/p left hip reduction and intramedullary nail fixation on 04/21/17. Her hospitalization was complicated by a large left MCA infarct with diffuse edema throughout the left MCA distribution and she was not a candidate for intracranial intervention due to completed appearance of infarct. Pt has since been in the ICU and is requiring prolonged mechanical ventilation. S/P tracheostomy. GI consulted for PEG. Piccolo Mechanic recommends. Piccolo Mechanic recommends Glucerna 1.5 @ 45 mls/hr. PLAN: - Plan for egd with peg tube placement - Obtain consents - NPO - Ancef at[employer]t retailer sales consultant - Hold lovenox after MN - Piccolo Mechanic recommends Glucerna 1.5 at 45cc/hr - Pt seen and examined by Dr. Trotter and myself and this note is written on her behalf (Fariba Olivera) Physician Comments seen, examined agree with above peg in am (Winnie Trotter MD) Fariba Olivera May 15, 2017 17:13 Winnie Trotter MD May 15, 2017 19:16
--- NOTE | 2017-05-15 18:04 | PD.PROCEDR ---
Procedure Note Procedure Procedure: Percutaneous tracheostomy with bronchoscopic guidance Operators: Dr. Darrel Saleh for percutaneous tracheostomy, Dr. Red for bronchoscopy Informed consent obtained from family and documented on chart Preoperative diagnosis: CVA, acute respiratory failure on mechanical ventilation Postoperative diagnosis: Same Anesthesia used: Versed 4 mg IV, fentanyl 200 g IV, Nimbex IV for neuromuscular blockade. 1% lidocaine for local infiltration anesthesia Procedure: After ensuring adequate sedation/analgesia neuromuscular blockade, patient was positioned appropriately. After sterile prepping and draping, 1% lidocaine was used for local infiltration anesthesia. Dr. Pedraza proceeded with bronchoscopy and withdrawing ET tube. Tracheal position was visualized by transillumination. Introducer Angiocath was inserted into the trachea under bronchoscopic guidance and Angiocath was advanced into the trachea following which needle was removed. A guidewire was passed via Angiocath and was visualized passing down the trachea following which Angiocath was then removed. Punch dilator was used to dilate the tracheal ring following which tracheostomy dilator assembly was mounted over the guidewire and advanced to dilate the trachea with dilator being visualized via bronchoscopic guidance entering the trachea during dilation without injuring the posterior tracheal wall. Following this dilator assembly was removed and percutaneous tracheostomy mounted over dilator was advanced over the guidewire into the trachea under direct visualization following which guidewire/dilator were removed. Bronchoscope was inserted at this point by Dr. Pedraza via newly inserted tracheostomy and appropriate placement was confirmed by visualizing tracheal rings following which bronchoscope was withdrawn and inner cannula was placed via tracheostomy. After inflating cuff patient was connected to mechanical ventilation via tracheostomy. 4 interrupted sutures were used to secure tracheostomy to neck. Patient tolerated the procedure well with no immediate complications noted. Good hemostasis was achieved at the end of procedure. Postprocedure chest x-ray was ordered and was pending at the time of this dictation and will be reviewed when available. Darrel Saleh MD May 15, 2017 18:04
--- NOTE | 2017-05-15 20:34 | RADRPT ---
EXAM DATE/TIME: 05/15/2017 19:59 [place] COMPARISON: CT BRAIN W/O CONTRAST, May 13, 2017, 4:07. INDICATIONS : Altered mental status. Facial droop. RADIATION DOSE: 42.29 CTDIvol (mGy) MEDICAL HISTORY : Cerebrovascular disease. Hypertension. SURGICAL HISTORY : None. ENCOUNTER: Initial ACUITY: 1 day PAIN SCALE: Non-responsive LOCATION: cranial TECHNIQUE: Multiple contiguous axial images were obtained of the head. Using automated exposure control and adj ustment of the mA and/or kV according to patient size, radiation dose was kept as low as reasonably a chievable to obtain optimal diagnostic quality images. DICOM format image data is available electro nically for review and comparison. FINDINGS: Left MCA distribution subacute infarct again noted and continues to evolve. There is approximately 5. 5 mm of rightward midline shift, similar to before. No new or acute infarct. No bleed. No perceptible mass lesion. Persistent opacification of the bilateral mastoid air cells. There is patchy mucoperiosteal thic kening of the paranasal sinuses. CONCLUSION: 1. No significant change subacute left middle cerebral artery distribution infarct including approxim ately 5.5 mm of rightward midline shift. 2. No bleed or new/acute infarct. Obdulio Simms MD on May 15, 2017 at 20:30 Board Certified Radiologist. This report was verified electronically.
[2017-05-16] VITALS (17 sets, daily range): BP systolic 126–171; BP diastolic 63–75; PULSE 66–95; RESP 14; TEMP 97.4–98.9; O2SAT 95–100
[2017-05-16 03:51] LABS: HCV RNA PCR IU/ML LESS THAN 15 IU/mL (0-14)
[2017-05-16] MEDS: INSULIN ASPART SUPPLEMENTAL SCALE SQ SCH ×5 (08:00→21:53)
[2017-05-16] MEDS: LACTULOSE SYRUP 20 GM/30 ML CUP PO SCH ×4 (09:00→20:56)
[2017-05-16] MEDS: FUROSEMIDE 40 MG/4 ML VIAL IV PUSH SCH ×2 (09:00→18:00)
[2017-05-16] MEDS: BENEPROTEIN POWDER 1 PACK G-TUBE SCH ×3 (09:00→18:00)
[2017-05-16] MEDS: ASPIRIN 325 MG TAB DOBHOFF SCH (09:00)
[2017-05-16] MEDS: INSULIN DETEMIR 100 UNITS/ML VIAL SQ SCH ×2 (09:00→20:44)
[2017-05-16] MEDS: DOCUSATE SODIUM 100 MG/10 ML UDC PO SCH ×2 (09:00→20:56)
[2017-05-16] MEDS: CHOLECALCIFEROL (VIT D3) 5000 UNIT CAP PO SCH (09:00)
[2017-05-16] MEDS: POLYETHYLENE GLYCOL 17 GM PKG OG-TUBE SCH ×2 (09:00→20:56)
[2017-05-16] MEDS: SENNOSIDES SYRUP 8.8 MG/5 ML CUP OG-TUBE SCH ×2 (09:00→20:56)
[2017-05-16] MEDS: LANSOPRAZOLE SOLUTAB 30 MG TAB NG SCH (09:00)
[2017-05-16] MEDS: SODIUM CHLORIDE 0.9% FLUSH 5 ML FLUSH IV FLUSH SCH ×2 (09:00→20:56)
[2017-05-16] MEDS: CALCIUM/VITAMIN D 250 MG/125 U TAB PO SCH ×3 (09:00→18:00)
--- NOTE | 2017-05-16 09:07 | HHI.CCPN ---
Subjective Remarks/Hospital Course 04/24: 76-year-old female with a medical history significant for prior stroke, diabetes mellitus who was admitted with DKA and a hip fracture for which she underwent ORIF on 04/21. Patient developed altered mental status and was last noted to be okay around 5:30 AM. Subsequently there was a change in her mental status and she was noted to not be moving her right side for which stroke alert was called. Head CT showed large left MCA territory ischemic infarct with edema. Patient was transferred to the ICU by family medicine service in the critical care consult was requested. I evaluated the patient following arrival to the ICU. At that time she was laying in bed with her eyes open however not following commands and had a dense right hemiplegia. Patient was also evaluated by Dr. Malave from neurology. I further discussed current event with patient's daughter following her arrival to the ICU. Per the daughter patient has been living with her since her stroke in 2014 and does ambulate however has been having problems with memory and incontinence as well as gait difficulties. She does not feel patient would want intubation or tracheostomy or PEG tube. 04/25: Patient remains encephalopathic, awake though not following commands consistently. Dense right hemiplegia persists. Appears to be awake enough to protect airway currently. Patient's daughter rescinded DNR and made a full code last evening. 04/26: Remains encephalopathic, not following commands. On Dobbhoff for tube feeds at 30 cc per hour. Had urinary retention and drained 2 L of urine after placing Leavitt catheter today. CT head done this morning with large left MCA territory infarct with left to right midline shift and significant cerebral edema. Hyperglycemia noted. Patient given mannitol earlier for increasing cerebral edema. 04/27: Remains encephalopathic, not following commands. On Dobbhoff tube feeds at 30 cc per hour. When into A. fib with RVR last night which responded with Lopressor 5 mg IV 1 dose. 04/28: Remains encephalopathic, arousable, not following commands. Moves left upper extremity spontaneously. Tolerating Dobbhoff tube feeds. Remains on nasal cannula. 04/29: Encephalopathic, eyes be arousable, moves left upper extremity spontaneously and occasionally opens eyes. Dense right hemiplegia and aphasia persists. On nasal cannula. Dobbhoff tube feeds being advanced. Patient was transfused 1 unit PRBCs yesterday. Urine culture with yeast from yesterday for which fluconazole being started. Had brief run of A. fib with RVR which improved with Lopressor IV, currently in sinus rhythm. 04/30: Worsening hypoxemic respiratory failure, currently on partial nonrebreather. Remains lethargic. WBC count increased from 14.6 today 20.7. Chest x-ray shows bilateral worsening infiltrates and small pleural effusions. Sodium 154, weight up by 8 KG. Albumin 1 mg Bumex 1. Also one dose of albumin. Remains in sinus tachycardia. Tmax 101.3 05/01: Patient was intubated yesterday for lack of airway protection, and severe hypoxemic respiratory failure from aspiration pneumonia involving multiple lobes. Patient is on the vent lethargic, no spontaneous eye opening. Chest x- ray remains unchanged. Remains intermittently febrile Tmax 101.3. WBC count improving 05/02: Remains critically ill with no improvement in mental status. Spiking fever of 101.7. Blood culture and sputum culture with staph aureus sputum also growing GNR, WBC count 22,000 now indicating worsening sepsis. Daughter still requesting aggressive care. Palliative care is following 05/03: S/P large area dominant hemisphere CVA. No neurological improvement. Now with pneumonia (infiltrate, fever, leukocytosis) and appropriate abx coverage. She will have a hard time surviving the hip fx, CVA, and pneumonia. Palliative Care needs to be a mainstay of our plan. 05/04: No improvement in neuro status. Sputum C&S allows us to narrow abx coverage to levaquin alone. Lungs remain quite congested. Enteral nutrition tolerated. 05/05: No improvement in neuro status. Moves left arm spontaneously. Flaccid right side. Unresponsive. Persistent mild hypoglycemia - will cut Levemir 50%. Abdomen more distended, check KUB. 05/06: CT head with massive left MCA infarction and > 1 cm shift in right handed woman. She opens eyes, does not track. 05/07: Patient open eyes. Attempts to respond. [place] speaking. Tolerating tube feeds. Positive bowel movement. Volume overloaded. Subjective 05/08: Tmax 99.4. Potassium being replaced. Ultrasound gallbladder currently pending. Transaminases are trending downward. Gently diurese. 05/09: Alk phos decreasing. Remains with good urine output. Neurological status not improving. 05/10: Fixed neuro deficit unchanged. Profound CVA. 05/11: Appears to track with eyes today. No improvement in motor function. Remains very edematous, diuretics doubled. 05/12: Continued thick secretions. Afebrile, leukocytosis resolved. 05/13: CT head with completed left MCA stroke, persistent edema and 5 mm shift away. Does not last long on SBTs - major decision now is trach/PEG. 05/14: Daughter has decided to proceed with trach and PEG. I have been pessimistic with her about chances for a meaningful recovery. 05/15: Plan for trach today. No change in neuro status. Still ventilator dependent. 05/16: Trach completed. Await PEG and disposition. Objective Vital Signs Date Time Temp Pulse Resp B/P (MAP) Pulse Ox O2 Delivery O2 Flow Rate FiO2 05/16/17 07:00 98 Mechanical Ventilator 40 05/16/17 06:00 67 05/16/17 04:00 97.7 14 134/65 (88) Intake and Output 05/16/17 05/16/17 05/17/17 08:00 16:00 00:00 Intake Total 421 ml Output Total 725 ml Balance -304 ml Result Diagram: 05/13/17 0740 05/15/17 0515 Imaging Last Impressions Chest X-Ray 05/07/17 0400 Signed Impressions: Service Date/Time: Sunday, May 07, 2017 04:38 - CONCLUSION: 1. Stable Low-lying ETT with tip approximately 1 cm above the valerie. 2. Mild interval progression of bilateral airspace consolidation exaggerated by patient rotation. 3. Increased small left pleural effusion. Alejo De La Vega MD Abdomen/Pelvis CT 05/07/17 0000 Signed Impressions: Service Date/Time: Sunday, May 07, 2017 13:23 - CONCLUSION: 1. Large left pneumothorax. 2. Bilateral lower lobe consolidation and bilateral moderate size pleural effusions. 3. Significant soft tissue thickening of the right lateral chest wall and left gluteus muscle. 4. Mild ascites. The findings were called to Dr. Carney. Deangelo Zamora MD Head CT 05/06/17 0000 Signed Impressions: Service Date/Time: Saturday, May 06, 2017 04:18 - CONCLUSION: 1. Evolving large left-sided MCA territory infarct with minimally improved [id number] subfalcine shift. 2. No intercurrent hemorrhage or other acute abnormality. Alejo De La Vega MD Abdomen X-Ray 05/06/17 0000 Signed Impressions: Service Date/Time: Saturday, May 06, 2017 17:42 - CONCLUSION: Dobbhoff feeding tube tip near the gastroduodenal junction. Obdulio Simms MD Hip and Pelvis X-Ray 05/05/17 0000 Signed Impressions: Service Date/Time: Friday, May 05, 2017 10:59 - CONCLUSION: Left proximal femur trochanteric/subtrochanteric fracture lucency visualized. Postoperative changes. Choco Mustafa MD Chest CT 04/30/17 0000 Signed Impressions: Service Date/Time: Sunday, April 30, 2017 09:20 - CONCLUSION: 1. Bilateral pulmonary infiltrates more pronounced within the lower lobes with tiny bilateral pleural effusions. Material seen filling the lower lobe bronchi bilaterally either related to purulent material or perhaps mucus plugging. Deangelo Wren Jr., MD Carotid Artery Ultrasound 04/24/17 0000 Signed Impressions: Service Date/Time: April 09:45 - CONCLUSION: 1. No hemodynamically significant carotid artery stenosis. Arnie Middleton MD Hip X-Ray 04/21/17 0000 Signed Impressions: Service Date/Time: Friday, April 21, 2017 11:36 - CONCLUSION: Fluoroscopic images during placement of intramedullary siomara left femur. Benja Ramsey MD Objective Remarks Gen: 76-year-old female HEENT: Pallor present. Moderate ET tube secretions Neck: Orally intubated. Chest/pulmonary: Coarse breath sounds. Chest tube d/c'd Cardiovascular: RRR. S1, S2, without murmur, rub GI/abdomen: Distended. Nontender. Active bowel sounds are present. Extremities: Warm bilaterally, anasarca 2+ upper and 2+ lower extremity edema. Incision sites over left hip, thigh ORIF site clean dry and intact. Neuro: Intubated, on no sedation. No eye opening today but grimaces. Dense right hemiplegia noted. Withdraws left upper extremity, Withdraws LLE. No change. Pupils 2 mm, react. Date of Insertion: May 02, 2017 A/P Assessment and Plan Neuro/Psych: Left MCA CVA - 12 mm of [id number] subfalcine herniation - right-sided hemiplegia Acute encephalopathy History CVA Follow neuro status closely. Continue Aspirin 325 mg by mouth daily Patient was not a candidate for thrombolysis per discussion with neurology and radiology. Repeat head CT 05/05 showed slight improvement in the midline shift and mass effect Neurosurgery consulted 04/30- Dr. López, recommended conservative management Neurology following - Dr. Malave On morphine 1-2 every 3 hours when necessary pain Cardiovascular: Hypertension IV fluids currently on hold due to edema As needed Antihypertensives to keep systolic blood pressure less than to 180 mmHg Echocardiogram 04/24 - EF 50 to 55%. Mild concentric LVH. Pulmonary: Acute hypoxic respiratory failure - aspiration possible HCAP Large left pneumothorax status post #10 [place] chest tube 05/07 PRVC 14/400/09/08/49 Ventilator bundle Ipratropium/albuterol aerosols every 6 hours with albuterol aerosols every 2 hours. Dyspnea Intubated on 04/30/17 for worsening hypoxemic respiratory failure, aspiration pneumonia Chest x-ray shows 05/08 revealed increasing infiltrate/small pleural effusion left side. Right-sided chest tube in place. CT of the chest 04/30/17 showed severe bibasilar consolidation, and evidence of aspiration Chest tube d/c'd 05/12 Daily SBTs. GI/liver: Elevated transaminases Hypoalbuminemia Moderate to severe protein calorie malnutrition Dobbhoff for tube feedings and medications. Continue tube feeding with Glucerna 1.5 goal 45 cc an hour On hold 05/08 due to possible cholecystostomy tube placement depending on ultrasound gallbladder Lansoprazole 30 mg daily for GI regimen Docusate sodium 100 twice a day, Senokot 8.6 twice a day, polyethylene glycol 17 grams twice a day and lactulose 30 cc 4 times a day Evaluate CT abdomen/pelvis 05/07 - mild ascites. Large left hemothorax. Right greater than left pleural effusion. Avoid hepatotoxic drugs LFTs improving Endocrine: Diabetes mellitus Detemir 20 units subcutaneous every 12 hours. Currently hold while nothing by mouth Sliding scale insulin Accu-Cheks to maintain euglycemia/low regimen Holding glimepiride 4 mill grams by mouth daily /Renal/FEN: Hypopotassemia Strict intake output, monitor and replete electrolytes, follow BUN/creatinine. Leavitt catheter placed for urinary retention on 04/26. Heme: Chronic Rivaroxaban use Leukocytosis Normocytic anemia Thrombocytosis Follow CBC and coags. On subcutaneous enoxaparin Hemoglobin currently stable. No indications for transfusion of blood proximally at this time ID: MSSA bacteremia Serratia/staph aureus pneumonia C glabrata UTI Pertinent cultures Urine culture 04/26/17 sofie glabrata Blood culture 04/29/17 1 out of 4 bottles staph aureus Sputum culture 04/30/17 staph aureus and Serratia. Blood cultures 2, sputum 1 and urine 05/08 pending -> Serratia On iv levaquin, oral flagyl MSK: Left Intertroch Hip Fx s/p IMN - POD 14 Vitamin D deficiency Prophylaxis: SCDs. Enoxaparin 40 mg sq daily-cleared by Dr. Malave GI - lansoprazole Overall impression: Devastating CVA. No improvement. Lengthy talk involving daughter and Palliative Care service. I have re-enforced poor prognosis. We have been unable to wean the ventilator; she repeatedly fails SBTs.Daughter would like to proceed with PEG insertion when GI available. Charles Pedraza MD May 16, 2017 09:06
--- NOTE | 2017-05-16 12:28 | HHI.FPPN ---
Subjective Remarks Ms Hein has no acute events overnight and is s/p tracheostomy performed yesterday. She has her eyes open today looking out the window. She turned her head to look at Dr Bennett, held his hand, then released it when asked to do so. Nursing will perform CPAP trials as tolerated. GI has been consulted to perform a PEG tube today. (Chuy Camacho MD R1) Objective Vitals Vital Signs Date Time Temp Pulse Resp B/P (MAP) Pulse Ox O2 Delivery O2 Flow Rate FiO2 05/16/17 09:17 100 45 05/16/17 08:00 45 05/16/17 07:00 98 Mechanical Ventilator 40 05/16/17 06:00 67 05/16/17 04:00 45 05/16/17 04:00 97.7 66 14 134/65 (88) 100 05/16/17 04:00 71 05/16/17 02:35 95 45 05/16/17 02:00 66 05/16/17 00:00 72 05/16/17 00:00 45 05/16/17 00:00 97.4 67 14 140/65 (90) 99 05/15/17 22:00 82 05/15/17 21:49 100 45 05/15/17 20:00 82 05/15/17 20:00 45 05/15/17 20:00 97.7 72 16 126/64 (84) 100 05/15/17 19:00 100 Mechanical Ventilator 40 05/15/17 18:00 77 05/15/17 16:00 80 05/15/17 16:00 45 05/15/17 16:00 98.5 80 14 113/59 (77) 98 05/15/17 16:00 99 45 05/15/17 14:00 74 05/15/17 12:21 100 45 I/O 05/15/17 05/15/17 05/15/17 05/16/17 05/16/17 05/16/17 07:00 15:00 23:00 07:00 15:00 23:00 Intake Total 1207 ml 808 ml 421 ml Output Total 900 ml 1150 ml 725 ml Balance 307 ml -342 ml -304 ml IV Total 496 ml 392 ml Tube Feeding 711 ml 176 ml 421 ml Other 240 ml Output Urine Total 800 ml 1150 ml 675 ml Stool Total 100 ml 0 ml 50 ml (Chuy Camacho MD R1) Result Diagram: 05/13/17 0740 05/15/17 0515 Imaging Last [address] 05/15/17 0000 Signed Impressions: Service Date/Time: May 19:59 - CONCLUSION: 1. 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 2. No bleed or new/acute infarct. Obdulio Simms MD Chest X-Ray 05/15/17 0000 Signed Impressions: Service Date/Time: May 12:38 - CONCLUSION: 1. A tracheostomy tube in good position with its tip 2 cm above the valerie. 2. Stable scattered pulmonary infiltrates bilaterally. 3. Dobbhoff feeding tube has its tip in the distal stomach. Enzo Farooq MD Objective Remarks CONSTITUTIONAL/GEN: Nonverbal, lying in bed with tracheostomy tube in place. Patient's eyes are open and she turned her head to look at us. She follows simple commands to grasp and release hand. HEAD: Normocephalic. Atraumatic. LUNGS: Coarse breath sounds bilaterally but moving air well CARDIOVASCULAR: Regular rate and regular rhythm. Lower extremity bilateral pitting edema, improving. Right hand still puffy, but improving. Left arm much improved today without any pitting edema. GI/ABD: less distended and less tense with much less edema, without masses, without organomegaly. NEURO: Intubated; eyes open. Patient has flaccid paralysis on the right side. Moves left side spontaneously. : Dark yellow urine draining into moser bag MUSC: SCDs on bilateral lower extremities. Pedal pulses weak. SKIN: Erythematous sacral wound Procedures ORIF 04/21/17 Intubation 04/30/17 Medications and IVs Current Medications Medications (Trade) Dose Ordered Sig/Zeferino Route Start Time Stop Time Status Last Admin (Zofran Inj) 4 mg Q6H PRN IV PUSH 04/20/17 15:00 04/30/17 02:28 (Morphine Inj) 1 mg Q3H PRN IV 04/20/17 17:15 04/28/17 18:15 (Morphine Inj) 2 mg Q3H PRN IV 04/20/17 17:15 04/30/17 02:29 (Narcan Inj) 0.4 mg UNSCH PRN IV 04/20/17 17:15 (Milk Of Magnesia Liq) 30 ml Q12H PRN PO 04/20/17 20:30 (Senokot) 17.2 mg Q12H PRN PO 04/20/17 20:30 04/23/17 22:55 (Dulcolax Supp) 10 mg DAILY PRN RECTAL 04/20/17 20:30 (Oscal-D 250-125) 250 mg TID PO 04/21/17 13:00 05/15/17 17:41 (Vitamin D3) 5,000 units DAILY PO 04/22/17 09:00 05/15/17 08:58 (NS Flush) 2 ml BID IV FLUSH 04/24/17 21:00 05/15/17 21:27 (NS Flush) 2 ml UNSCH PRN IV FLUSH 04/24/17 09:30 (Glucagon Inj) 1 mg UNSCH PRN IM/SQ 04/24/17 18:15 (Aspirin) 325 mg DAILY DOBHOFF 04/27/17 09:00 05/15/17 08:58 (D50w (Syr) Inj) 25 ml UNSCH PRN IV 04/26/17 20:30 05/11/17 01:35 (Lopressor Inj) 5 mg Q5M PRN IV PUSH 04/27/17 04:00 05/03/17 18:26 Potassium Chloride 100 ml @ 50 mls/hr Q2H PRN IV 04/27/17 08:45 Potassium Chloride 100 ml @ 50 mls/hr Q2H PRN IV 04/27/17 08:45 05/15/17 06:23 (K-Lyte Cl Eff) 50 meq UNSCH PRN PO 04/27/17 08:45 Potassium Chloride 100 ml @ 25 mls/hr UNSCH PRN IV 04/27/17 08:45 05/04/17 19:07 Potassium Chloride 100 ml @ 50 mls/hr Q2H PRN IV 04/27/17 08:45 04/29/17 12:15 Magnesium Sulfate 4 gm/Sodium Chloride 100 ml @ 50 mls/hr UNSCH PRN IV 04/27/17 08:45 (Mag-Ox) 800 mg UNSCH PRN PO 04/27/17 08:45 Magnesium Sulfate 2 gm/Sodium Chloride 100 ml @ 50 mls/hr UNSCH PRN IV 04/27/17 08:45 (K-Phos) 2,000 mg Q4H PRN PO 04/27/17 08:45 04/28/17 15:38 Sodium Phosphate 30 mmol/Sodium Chloride 250 ml @ 42 mls/hr UNSCH PRN IV 04/27/17 08:45 04/27/17 23:59 (K-Phos) 2,000 mg UNSCH PRN PO/TUBE 04/27/17 08:45 05/08/17 06:32 Potassium Phosphate 30 mmol/ Sodium Chloride 260 ml @ 42 mls/hr UNSCH PRN IV 04/27/17 08:45 05/04/17 20:54 (NovoLOG SUPPLEMENTAL SCALE) 1 ACHS SLIDING SCALE SQ 04/28/17 16:00 05/15/17 21:28 (Lovenox Inj) 40 mg Q24H SQ 05/01/17 08:00 Future Hold 05/14/17 09:55 (Colace Liq) 100 mg Q12HR PO 05/07/17 21:00 05/15/17 21:26 (Senna Liq) 8.8 mg BID OG-TUBE 05/07/17 21:00 05/11/17 09:09 (Lactulose Liq) 30 ml QID PO 05/07/17 18:00 05/15/17 21:27 (Miralax) 17 gm BID OG-TUBE 05/07/17 21:00 05/11/17 09:08 (Albuterol Neb) 2.5 mg Q2HR NEB PRN NEB 05/07/17 13:00 05/14/17 08:36 (Prevacid Odt) 30 mg DAILY NG 05/08/17 09:00 05/15/17 08:58 (Lasix Inj) 40 mg BID@0900,1800 IV PUSH 05/11/17 09:00 05/15/17 17:51 (Levemir Inj) 5 units Q12H SQ 05/11/17 21:00 05/15/17 21:27 (Beneprotein Powder) 1 pack TID G-TUBE 05/12/17 13:00 05/15/17 17:51 Cefazolin Sodium 1000 mg/Sodium Chloride 100 ml @ 200 mls/hr LAST TURNER IV 05/15/17 17:15 05/18/17 17:14 (Chuy Camacho MD R1) Urinary Catheter: Yes Moser insert reason: Obstruction/Retention Date of Insertion: May 02, 2017 (Chuy Camacho MD R1) A/P Assessment and Plan 76 y/o female with HTN, DM, CVA admitted for DKA and hip fracture. Now with massive left MCA stroke, right hemiplegia and midline shift resolving. Neuro and fire protection specialist consulted. Working with palliative care and family for goals of care. 05/07 CT abdomen/pelvis w/large pneumothorax on left side decompressed with chest tube. Chest tube pulled 05/12. Tracheostomy placed 05/15. GI consulted for PEG tube 05/16. -Overall poor prognosis, pursuing goals of care discussion with daughter (HCPOA) , but at this time daughter wishes continued intervention -05/09 - extensive discussion with daughter today indicates no willingness to pursue comfort measures only. Daughter continues to ask for aggressive management of her mother's condition; will continue to engage in this discussion -05/11--CXR w/bilateral pleural effusions vs pulmonary edema--diuresis ordered -05/14 -- little interval change. Wt down from 70 kg on 05/10 to 59kg today. CPAP trials progressing. Family meeting with daughter yielded no change in code status or goals of care. Plan is to re-join with discussing trach and PEG feeding tube with daughter in 2-3 days time. -05/15 -- Daughter consented to tracheostomy and procedure was performed today. CPAP trials still progressing. No other changes. -05/16 -- Tracheostomy in place, pt with eyes open today responding to simple commands. GI consulted with PEG tube planned for today. Discharge Planning Pending stroke progression and discussion for goals of care (Chuy Camacho MD R1) Attending Attestation Patient seen and examined. Case reviewed and discussed with the resident team. Agree with plan of care as discussed with me and documented in the resident note. saw her just after her PEG was placed. unsure of future as Ms Hein will not be placeable at a SNF without Insurance (Dawn Guajardo MD) Problem List: (1) Acute CVA (cerebrovascular accident) ICD Codes: I63.9 - Cerebral infarction, unspecified Status: Acute Plan: Patient found minimally responsive with neurological deficits around 0820 04/24. Stat CT of head was ordered, which showed large left MCA infarct. Diffuse edema throughout the left MCA distribution, suggest completed infarct. This was discussed and was not a candidate for intracranial intervention. CT (04/30): Reduction in midline shift to 11mm. Unchanged large left MCA infarction. CT head (05/06) shows: Evolving large left-sided MCA territory infarct with minimally improved [id number] subfalcine shift. No intercurrent hemorrhage or other acute abnormality. Echocardiogram- The left ventricular systolic function is low normal with an estimated ejection fraction in the range of 50-55%. Mild concentric left ventricular hypertrophy. Normal left ventricular size. [id number] mitral valve regurgitation. Carotid Artery US- No hemodynamically significant carotid stenosis -Consulted fire protection specialist, appreciate recs -Intubated/sedated; does not recommend tracheostomy -IV hydration, watch for hypotension. -Keep systolic to less than 220 -Lactated Ringer's reduced to 75 ml/hr -Poor prognosis -Neurosurgery consulted -Recommended conservative management -Keep Na in 145-154 range -Tube feeds: Glucerna 1.5 mLs for diet via Dobbhoff tube -Backfiller consult for management and recs -Added beneprotein to G-tube -Consult palliative care-appreciate recs -Case discussed with daughter in-person about goals of care, limited treatment options, and poor prognosis. -Daughter continues to want aggressive care. Wishes to continue aggressive medical treatment despite prognosis -Neurology consulted-appreciate recs -Rectal ASA -Lovenox 40mg daily (2) Sepsis ICD Codes: A41.9 - Sepsis, unspecified organism Status: Acute Plan: Impression: Pt met SIRS criteria with tachycardia, leukocytosis Leukocytosis resolved today. Cultures: 05/07 Blood cultures and sputum cultures negative to date 04/30 Sputum culture with staph, Serratia 04/29 blood culture with staph -See antibiotics as below -Culture results as below -Monitor vitals (3) HCAP (healthcare-associated pneumonia) ICD Codes: J18.9 - Pneumonia, unspecified organism Status: Acute Plan: Suspect possible HCAP. Persistent leukocytosis. Possible aspiration Chest CT (04/30): Bilateral pulmonary infiltrates more pronounced within lower lobes with b/l pleural effusions. Material in lower lobe bronchi b/l, purulent or mucus plugging 04/30 Sputum culture showing staph aureus and Serratia Marcescens Legionella and strep pneumo urine tests negative CXR 05/02: Increased airspace opacity bilaterally. The pattern may represent pulmonary edema. There is likely a left pleural effusion. CXR 05/08: Stable diffuse consolidation of right warm to much lesser extent left perihilar region consistent with pneumonia or asymmetric pulmonary vascular congestion CXR 05/09: no pneumothorax, but small subcutaneous emphysema in left chest, patchy opacity in right lower lung consistent with pneumonia or pulmonary vascular congestion. Continue antibiotic therapy as per ID recs -Hold Cefepime 2g IV daily 05/14 -Repeat blood cultures (05/07) pending , with 09/04 positive; possible contaminant -Sputum cx 05/07 reveals Serratia marascens susceptible to cefepime and levo -Duonebs treatments q6h Antibiotic History -Discontinued Cefepime 2g IV daily (04/30 - d/c 05/04 ) -Discontinued Vancomycin IV (04/30 - d/c 05/04 ) -Discontinued Flagyl 500mg q8h (04/29 - 05/13) -Discontinued Levaquin IV 750 mg (05/04-05/13) HCAP (4) Yeast UTI ICD Codes: B37.49 - Other urogenital candidiasis Status: Resolved Plan: UA showed glucose, large number of leukocytes esterase, innumerable WBCs , rare bacteria, and few yeast Urine culture shows Lea Glabrata; however, high GGT and Alk Phos require reducing hepatotoxic drugs -D/C Micafungin 100mg IV daily as it is hepatically metabolized -Urine cx 05/08 NGTD (5) Abdominal distension ICD Codes: R14.0 - Abdominal distension (gaseous) Status: Acute Plan: Impression: Abdominal distension much improved today; first noted on exam 05/05 with serial KUBs neg for etiology. In association with transaminase elevation and Alk P >1k and GGT elevation. s/p large BM 05/07 per nursing staff 05/06 - CT abdomen/pelvis- large left pneumothorax, bilateral lower lobe consolidation and bilateral moderate-sized pleural effusions, significant soft tissue thickening of right lateral chest wall and left gluteus. Mild ascites 05/09 - abdominal distension unchanged; however, LFTs resolving following chest tube -Continue to monitor at this time -Continue to follow LFTs 05/11 - abdominal distention seems to be related to diffuse edema, trial of Lasix 20 mg IV twice a day, which was increased to 40 mg IV twice a day 05/12 - much less abdominal distention today. Significant improvement with significant net diuresis of almost 4 L. 05/14 - continues to improve 05/16 - no interval change (6) Fluid overload ICD Codes: E87.70 - Fluid overload, unspecified Status: Acute Plan: Cogeneration Technician noted fluid overload and has been diuresing; pt's wt on 04/21 51.9 kg -->83.4kg on 05/07 --> 59.8 kg on 05/16 -Lasix IV bid -Metolazone and Bumex d/c'd (7) Pneumothorax ICD Codes: J93.9 - Pneumothorax, unspecified Status: Resolved Plan: Impression: Noticed on 05/06 CT abdomen/pelvis- large left pneumothorax, bilateral lower lobe consolidation and bilateral moderate-sized pleural effusions. S/P chest tube placement. Chest tube to waterseal for the last few days. Chest tube output 50 mL or less for the past 4 days, including today. -Chest tube pulled on 05/12/17 -Follow up chest x-ray today -Chest tube pulled 05/13 (8) Type 2 diabetes mellitus ICD Codes: E11.9 - Type 2 diabetes mellitus without complications Status: Chronic Plan: Admitted for DKA which has now resolved. Hemoglobin A1C is 12.9. Diabetes Type I is uncontrolled. -Continue Levemir 10 units BID due to hypoglycemia at higher dose -Medium dose insulin sliding scale with goal blood glucose between 140 and 180 -Glucerna for NG tube feedings -D/C Regular accuchecks (9) Atrial fibrillation ICD Codes: I48.91 - Unspecified atrial fibrillation Status: Acute Plan: Hx of intermittent Afib. Resolved with administration of Lopressor. -Continue to monitor -Lopressor PRN (10) Hip fracture ICD Codes: S72.009A - Fracture of unspecified part of neck of unspecified femur , initial encounter for closed fracture Status: Acute Plan: S/P left hip reduction and intramedullary nail fixation on 04-21-17 -Consult orthopedics-appreciate recs * WBAT * Daily dressing changes -Calcium/Vitamin D -Fluids as above -Tylenol, morphine PRN pain (11) Hypertension ICD Codes: I10 - Essential (primary) hypertension Status: Acute Plan: IV hydration. BPs wnl overnight -Continue fluids as above -Antihypertensives to keep SBP<180 -Lasix or Bumex for diuresis as required (12) On mechanically assisted ventilation ICD Codes: Z99.11 - Dependence on respirator [ventilator] status Plan: Impression: s/p trach procedure 05/15. On CPAP trial to wean off ventilation; 40% FiO2 -Continue weaning trials as tolerated (13) Elevated LFTs ICD Codes: R79.89 - Other specified abnormal findings of blood chemistry Plan: Impression: LFT elevations with alkaline phosphatase gradually rising from 351-1931 and AST rising from 50s to 217. Liver/biliary etiology expected as GGT 787. Gallbladder ultrasound obtained by fire protection specialist 05/08; focally unremarkable in appearance of gallbladder -Incrementally resolving since chest tube placement -Monitor at this time (14) Sacral decubitus ulcer ICD Codes: L89.159 - Pressure ulcer of sacral region, unspecified stage Plan: Patient with beginnings of a sacral decubitus ulcer. -Wound care consult ordered and appreciated (15) Fluids, Electrolytes, and Nutrition Status: Acute Plan: Fluids: IVF as above Electrolyte: on electrolyte protocol Nutrition: Glucerna tube feeds, added beneprotein DVT ppx: SCDs/lovenox 40 mg daily GI ppx: protonix Colace, fleet enema mineral oil (Chuy Camacho MD R1) Problem Qualifiers (1) Sepsis: Qualified Codes: A41.9 - Sepsis, unspecified organism (2) Fluid overload: Qualified Codes: E87.79 - Other fluid overload (3) Pneumothorax: (4) Type 2 diabetes mellitus: Qualified Codes: E11.9 - Type 2 diabetes mellitus without complications (5) Atrial fibrillation: Qualified Codes: I48.0 - Paroxysmal atrial fibrillation (6) Hip fracture: (7) Hypertension: Qualified Codes: I10 - Essential (primary) hypertension Chuy Camacho MD R1 May 16, 2017 12:27 Dawn Guajardo MD May 16, 2017 17:57
--- NOTE | 2017-05-16 12:57 | GIPROC ---
[facility] [address] [facility]. [facility], [id number] EGD WITH PEG PROCEDURE REPORT EXAM DATE: 05/16/2017 PATIENT NAME: Amina Hein MR#: [id number] BIRTHDATE: 1940 ATTENDING: Winnie Trotter MD ORDER #: [id number] WOOL HANKER: Greg Chavez and Bren Bowman STATUS: inpatient INDICATIONS: The patient is a 76 yr old female here for an EGD with PEG due to PROCEDURE PERFORMED: EGD with PEG placement MEDICATIONS: None and Per Anesthesia. TOPICAL ANESTHETIC: none CONSENT: The patient understands the risks and benefits of the procedure and understands that these risks include, but are not limited to: sedation, allergic reaction, infection, perforation and/or bleeding. Alternative means of evaluation and treatment include, among others: physical exam, x-rays, and/or surgical intervention. The patient elects to proceed with this endoscopic procedure. medical equipment was checked for proper function. Hand hygiene and appropriate measures for infection prevention was taken. After the risks, benefits and alternatives of the procedure were thoroughly explained, Informed consent was verified, confirmed and timeout was successfully executed by the treatment team. The patient was anesthetized with topical anesthesia and the Pentax [id number] endoscope was introduced through the mouth and advanced to the second portion of the duodenum. The instrument was slowly withdrawn as the mucosa was fully examined. The upper, middle, and distal third of the esophagus were carefully inspected and no abnormalities were noted. The z-line was well seen at the GEJ. The endoscope was pushed into the fundus which was normal including a retroflexed view. The antrum, first and second part of the duodenum were unremarkable. The stomach was then inflated with air, and by a combination of transillumination and manual palpation, the site for the gastrostomy tube placement was selected and marked on the anterior abdominal wall. The skin of the anterior abdomen was surgically prepped and draped with sterile towels. Utilizing strict sterile technique, the selected site was then anesthetized with 1% xylocaine by injection into the skin and subcutaneous tissue. A 1 cm incision was made through the skin and subcutaneous tissue, and the needle/cannula assembly was then passed through the abdominal wall and through the anterior wall of the stomach, maintaining visualization with the endoscope. A snare device previously placed through the instrument channel was then opened and placed around the cannula, the needle was removed, and the insertion wire was passed through the cannula and into the stomach lumen. The snare was then loosened from the cannula, and repositioned to snare the insertion wire. The snare was then pulled up to the endoscope distal tip, and the scope was then withdrawn bringing with it the snare and insertion wire. The insertion wire was then released from the snare, and then loop-attached to the gastrostomy tube. Using the "pull technique", the G-tube was then pulled into place by traction on the insertion wire at the abdominal wall end. The G-tube insertion site was then cleansed once again, and the external bolster was placed over the tube to secure it to the abdominal wall. A sterile dressing was then applied, and the procedure terminated. a hiatal hernia The gastroscope was then slowly withdrawn and removed. ADVERSE EVENT: There were no complications. IMPRESSIONS: 1. The upper, middle, and distal third of the esophagus were carefully inspected and no abnormalities were noted. The z-line was well seen at the GEJ. The endoscope was pushed into the fundus which was normal including a retroflexed view. The antrum, first and second part of the duodenum were unremarkable. 2. A hiatal hernia RECOMMENDATIONS: Anti-reflux regimen start feeding in am ok to use PEG for medications only today abdominal binder REPEAT EXAM: as nedeed Winnie Trotter MD eSigned: Winnie Trotter MD 05/16/2017 12:57 PM cc: PATIENT NAME: Amina Hein MR#: [id number]
[2017-05-16] MEDS ORDERED: PROPOFOL 200 MG/20 ML AMP IV ONE (13:30)
[2017-05-17] VITALS (18 sets, daily range): BP systolic 114–163; BP diastolic 55–78; PULSE 65–82; RESP 14–24; TEMP 96.9–99; O2SAT 93–100
[2017-05-17] MEDS: INSULIN ASPART SUPPLEMENTAL SCALE SQ SCH ×4 (07:08→21:00)
[2017-05-17 08:05] LABS: HEMATOCRIT 29.5 % (35.0-46.0); HEMOGLOBIN 9.5 GM/DL (11.6-15.3); MEAN CELL VOLUME 96.3 FL (80.0-100.0); MEAN CORPUSCULAR HEMOGLOBIN 31.2 PG (27.0-34.0); MEAN CORPUSCULAR HGB CONC 32.4 % (32.0-36.0); MEAN PLATELET VOLUME 8.7 FL (7.0-11.0); PLATELET COUNT 460 TH/MM3 (150-450); RED BLOOD COUNT 3.06 MIL/MM3 (4.00-5.30); RED CELL DISTRIBUTION WIDTH 17.9 % (11.6-17.2); WHITE BLOOD COUNT 14.1 TH/MM3 (4.0-11.0)
[2017-05-17 08:17] LABS: BICARBONATE 28.2 MEQ/L (21.0-32.0); CALCIUM 7.3 MG/DL (8.5-10.1); CREATININE 0.35 MG/DL (0.50-1.00)
[2017-05-17] MEDS: DOCUSATE SODIUM 100 MG/10 ML UDC PO SCH ×2 (09:00→20:59)
[2017-05-17] MEDS: POLYETHYLENE GLYCOL 17 GM PKG OG-TUBE SCH ×2 (09:00→20:59)
[2017-05-17] MEDS: LACTULOSE SYRUP 20 GM/30 ML CUP PO SCH ×4 (09:00→21:00)
[2017-05-17 09:06] LABS: CALCIUM-PROTEIN CORRECTED 8.4 MG/DL (8.5-10.1); TOTAL PROTEIN 5.1 GM/DL (6.4-8.2)
[2017-05-17] MEDS: ASPIRIN 325 MG TAB DOBHOFF SCH (09:10)
[2017-05-17] MEDS: BENEPROTEIN POWDER 1 PACK G-TUBE SCH ×3 (09:10→17:53)
[2017-05-17] MEDS: LANSOPRAZOLE SOLUTAB 30 MG TAB NG SCH (09:11)
[2017-05-17] MEDS: SODIUM CHLORIDE 0.9% FLUSH 5 ML FLUSH IV FLUSH SCH ×2 (09:11→21:00)
[2017-05-17] MEDS: SENNOSIDES SYRUP 8.8 MG/5 ML CUP OG-TUBE SCH ×2 (09:11→20:59)
[2017-05-17] MEDS: CHOLECALCIFEROL (VIT D3) 5000 UNIT CAP PO SCH (09:11)
[2017-05-17] MEDS: CALCIUM/VITAMIN D 250 MG/125 U TAB PO SCH ×3 (09:11→17:54)
[2017-05-17] MEDS: INSULIN DETEMIR 100 UNITS/ML VIAL SQ SCH ×2 (09:12→21:00)
[2017-05-17] MEDS: FUROSEMIDE 40 MG/4 ML VIAL IV PUSH SCH ×2 (09:24→17:53)
--- NOTE | 2017-05-17 09:41 | HHI.CCPN ---
Subjective Remarks/Hospital Course 04/24: 76-year-old female with a medical history significant for prior stroke, diabetes mellitus who was admitted with DKA and a hip fracture for which she underwent ORIF on 04/21. Patient developed altered mental status and was last noted to be okay around 5:30 AM. Subsequently there was a change in her mental status and she was noted to not be moving her right side for which stroke alert was called. Head CT showed large left MCA territory ischemic infarct with edema. Patient was transferred to the ICU by family medicine service in the critical care consult was requested. I evaluated the patient following arrival to the ICU. At that time she was laying in bed with her eyes open however not following commands and had a dense right hemiplegia. Patient was also evaluated by Dr. Malave from neurology. I further discussed current event with patient's daughter following her arrival to the ICU. Per the daughter patient has been living with her since her stroke in 2014 and does ambulate however has been having problems with memory and incontinence as well as gait difficulties. She does not feel patient would want intubation or tracheostomy or PEG tube. 04/25: Patient remains encephalopathic, awake though not following commands consistently. Dense right hemiplegia persists. Appears to be awake enough to protect airway currently. Patient's daughter rescinded DNR and made a full code last evening. 04/26: Remains encephalopathic, not following commands. On Dobbhoff for tube feeds at 30 cc per hour. Had urinary retention and drained 2 L of urine after placing Leavitt catheter today. CT head done this morning with large left MCA territory infarct with left to right midline shift and significant cerebral edema. Hyperglycemia noted. Patient given mannitol earlier for increasing cerebral edema. 04/27: Remains encephalopathic, not following commands. On Dobbhoff tube feeds at 30 cc per hour. When into A. fib with RVR last night which responded with Lopressor 5 mg IV 1 dose. 04/28: Remains encephalopathic, arousable, not following commands. Moves left upper extremity spontaneously. Tolerating Dobbhoff tube feeds. Remains on nasal cannula. 04/29: Encephalopathic, eyes be arousable, moves left upper extremity spontaneously and occasionally opens eyes. Dense right hemiplegia and aphasia persists. On nasal cannula. Dobbhoff tube feeds being advanced. Patient was transfused 1 unit PRBCs yesterday. Urine culture with yeast from yesterday for which fluconazole being started. Had brief run of A. fib with RVR which improved with Lopressor IV, currently in sinus rhythm. 04/30: Worsening hypoxemic respiratory failure, currently on partial nonrebreather. Remains lethargic. WBC count increased from 14.6 today 20.7. Chest x-ray shows bilateral worsening infiltrates and small pleural effusions. Sodium 154, weight up by 8 KG. Albumin 1 mg Bumex 1. Also one dose of albumin. Remains in sinus tachycardia. Tmax 101.3 05/01: Patient was intubated yesterday for lack of airway protection, and severe hypoxemic respiratory failure from aspiration pneumonia involving multiple lobes. Patient is on the vent lethargic, no spontaneous eye opening. Chest x- ray remains unchanged. Remains intermittently febrile Tmax 101.3. WBC count improving 05/02: Remains critically ill with no improvement in mental status. Spiking fever of 101.7. Blood culture and sputum culture with staph aureus sputum also growing GNR, WBC count 22,000 now indicating worsening sepsis. Daughter still requesting aggressive care. Palliative care is following 05/03: S/P large area dominant hemisphere CVA. No neurological improvement. Now with pneumonia (infiltrate, fever, leukocytosis) and appropriate abx coverage. She will have a hard time surviving the hip fx, CVA, and pneumonia. Palliative Care needs to be a mainstay of our plan. 05/04: No improvement in neuro status. Sputum C&S allows us to narrow abx coverage to levaquin alone. Lungs remain quite congested. Enteral nutrition tolerated. 05/05: No improvement in neuro status. Moves left arm spontaneously. Flaccid right side. Unresponsive. Persistent mild hypoglycemia - will cut Levemir 50%. Abdomen more distended, check KUB. 05/06: CT head with massive left MCA infarction and > 1 cm shift in right handed woman. She opens eyes, does not track. 05/07: Patient open eyes. Attempts to respond. [place]ican speaking. Tolerating tube feeds. Positive bowel movement. Volume overloaded. Subjective 05/08: Tmax 99.4. Potassium being replaced. Ultrasound gallbladder currently pending. Transaminases are trending downward. Gently diurese. 05/09: Alk phos decreasing. Remains with good urine output. Neurological status not improving. 05/10: Fixed neuro deficit unchanged. Profound CVA. 05/11: Appears to track with eyes today. No improvement in motor function. Remains very edematous, diuretics doubled. 05/12: Continued thick secretions. Afebrile, leukocytosis resolved. 05/13: CT head with completed left MCA stroke, persistent edema and 5 mm shift away. Does not last long on SBTs - major decision now is trach/PEG. 05/14: Daughter has decided to proceed with trach and PEG. I have been pessimistic with her about chances for a meaningful recovery. 05/15: Plan for trach today. No change in neuro status. Still ventilator dependent. 05/16: Trach completed. Await PEG and disposition. 05/17: PEG placed 05/16. Start TFs today after nutrition consult. Work to place patient. Objective Vital Signs Date Time Temp Pulse Resp B/P (MAP) Pulse Ox O2 Delivery O2 Flow Rate FiO2 05/17/17 06:00 77 05/17/17 04:14 99 35 05/17/17 04:00 96.9 14 163/78 (106) 05/16/17 19:00 Mechanical Ventilator Intake and Output 05/17/17 05/17/17 05/18/17 08:00 16:00 00:00 Intake Total 120 ml Output Total 400 ml Balance -280 ml Result Diagram: 05/17/17 0625 05/17/17 0625 Imaging Last Impressions Chest X-Ray 05/07/17 0400 Signed Impressions: Service Date/Time: Sunday, May 07, 2017 04:38 - CONCLUSION: 1. Stable Low-lying ETT with tip approximately 1 cm above the valerie. 2. Mild interval progression of bilateral airspace consolidation exaggerated by patient rotation. 3. Increased small left pleural effusion. Alejo De La Vega MD Abdomen/Pelvis CT 05/07/17 0000 Signed Impressions: Service Date/Time: Sunday, May 07, 2017 13:23 - CONCLUSION: 1. Large left pneumothorax. 2. Bilateral lower lobe consolidation and bilateral moderate size pleural effusions. 3. Significant soft tissue thickening of the right lateral chest wall and left gluteus muscle. 4. Mild ascites. The findings were called to Dr. Carney. Deangelo Zamora MD Head CT 05/06/17 0000 Signed Impressions: Service Date/Time: Saturday, May 06, 2017 04:18 - CONCLUSION: 1. Evolving large left-sided MCA territory infarct with minimally improved [id number] subfalcine shift. 2. No intercurrent hemorrhage or other acute abnormality. Alejo De La Vega MD Abdomen X-Ray 05/06/17 0000 Signed Impressions: Service Date/Time: Saturday, May 06, 2017 17:42 - CONCLUSION: Dobbhoff feeding tube tip near the gastroduodenal junction. Obdulio Simms MD Hip and Pelvis X-Ray 05/05/17 0000 Signed Impressions: Service Date/Time: Friday, May 05, 2017 10:59 - CONCLUSION: Left proximal femur trochanteric/subtrochanteric fracture lucency visualized. Postoperative changes. Choco Mustafa MD Chest CT 04/30/17 0000 Signed Impressions: Service Date/Time: Sunday, April 30, 2017 09:20 - CONCLUSION: 1. Bilateral pulmonary infiltrates more pronounced within the lower lobes with tiny bilateral pleural effusions. Material seen filling the lower lobe bronchi bilaterally either related to purulent material or perhaps mucus plugging. Deangelo Wren Jr., MD Carotid Artery Ultrasound 04/24/17 0000 Signed Impressions: Service Date/Time: April 09:45 - CONCLUSION: 1. No hemodynamically significant carotid artery stenosis. Arnie Middleton MD Hip X-Ray 04/21/17 0000 Signed Impressions: Service Date/Time: Friday, April 21, 2017 11:36 - CONCLUSION: Fluoroscopic images during placement of intramedullary siomara left femur. Benja Ramsey MD Objective Remarks Gen: 76-year-old female HEENT: Pallor present. Moderate ET tube secretions Neck: Orally intubated. Chest/pulmonary: Coarse breath sounds. Chest tube d/c'd Cardiovascular: RRR. S1, S2, without murmur, rub GI/abdomen: Distended. Nontender. Active bowel sounds are present. Extremities: Warm bilaterally, anasarca 2+ upper and 2+ lower extremity edema. Incision sites over left hip, thigh ORIF site clean dry and intact. Neuro: Intubated, on no sedation. No eye opening today but grimaces. Dense right hemiplegia noted. Withdraws left upper extremity, Withdraws LLE. No change. Pupils 2 mm, react. Date of Insertion: May 02, 2017 A/P Assessment and Plan Neuro/Psych: Left MCA CVA - 12 mm of [id number] subfalcine herniation - right-sided hemiplegia Acute encephalopathy History CVA Follow neuro status closely. Continue Aspirin 325 mg by mouth daily Patient was not a candidate for thrombolysis per discussion with neurology and radiology. Repeat head CT 05/05 showed slight improvement in the midline shift and mass effect Neurosurgery consulted 04/30- Dr. López, recommended conservative management Neurology following - Dr. Malave On morphine 1-2 every 3 hours when necessary pain Cardiovascular: Hypertension IV fluids currently on hold due to edema As needed Antihypertensives to keep systolic blood pressure less than to 180 mmHg Echocardiogram 04/24 - EF 50 to 55%. Mild concentric LVH. Pulmonary: Acute hypoxic respiratory failure - aspiration possible HCAP Large left pneumothorax status post #10 Armenian chest tube 05/07 PRVC 14/400// Ventilator bundle Ipratropium/albuterol aerosols every 6 hours with albuterol aerosols every 2 hours. Dyspnea Intubated on 04/30/17 for worsening hypoxemic respiratory failure, aspiration pneumonia Chest x-ray shows 05/08 revealed increasing infiltrate/small pleural effusion left side. Right-sided chest tube in place. CT of the chest 04/30/17 showed severe bibasilar consolidation, and evidence of aspiration Chest tube d/c'd 05/12 Daily SBTs. GI/liver: Elevated transaminases Hypoalbuminemia Moderate to severe protein calorie malnutrition Dobbhoff for tube feedings and medications. Continue tube feeding with Glucerna 1.5 goal 45 cc an hour On hold 05/08 due to possible cholecystostomy tube placement depending on ultrasound gallbladder Lansoprazole 30 mg daily for GI regimen Docusate sodium 100 twice a day, Senokot 8.6 twice a day, polyethylene glycol 17 grams twice a day and lactulose 30 cc 4 times a day Evaluate CT abdomen/pelvis 05/07 - mild ascites. Large left hemothorax. Right greater than left pleural effusion. Avoid hepatotoxic drugs LFTs improving Endocrine: Diabetes mellitus Detemir 20 units subcutaneous every 12 hours. Currently hold while nothing by mouth Sliding scale insulin Accu-Cheks to maintain euglycemia/low regimen Holding glimepiride 4 mill grams by mouth daily /Renal/FEN: Hypopotassemia Strict intake output, monitor and replete electrolytes, follow BUN/creatinine. Leavitt catheter placed for urinary retention on 04/26. Heme: Chronic Rivaroxaban use Leukocytosis Normocytic anemia Thrombocytosis Follow CBC and coags. On subcutaneous enoxaparin Hemoglobin currently stable. No indications for transfusion of blood proximally at this time ID: MSSA bacteremia Serratia/staph aureus pneumonia C glabrata UTI Pertinent cultures Urine culture 04/26/17 sofie glabrata Blood culture 04/29/17 1 out of 4 bottles staph aureus Sputum culture 04/30/17 staph aureus and Serratia. Blood cultures 2, sputum 1 and urine 05/08 pending -> Serratia On iv levaquin, oral flagyl MSK: Left Intertroch Hip Fx s/p IMN - POD 14 Vitamin D deficiency Prophylaxis: SCDs. Enoxaparin 40 mg sq daily-cleared by Dr. Ananda SANDS - lansoprazole Overall impression: Devastating CVA. No improvement. Lengthy talk involving daughter and Palliative Care service. I have re-enforced poor prognosis. We have been unable to wean the ventilator; she repeatedly fails SBTs. PEG placed. No change in neuro status. Charles Pedraza MD May 17, 2017 09:41
--- NOTE | 2017-05-17 11:25 | HHI.GIFU ---
Subjective Remarks Resting in bed. Sedated on vent. Abdominal binder in place. PEG tube clamped. (Fariba Olivera) Objective Vitals I&O Vital Signs Date Time Temp Pulse Resp B/P (MAP) Pulse Ox O2 Delivery O2 Flow Rate FiO2 05/17/17 10:01 100 35 05/17/17 06:00 77 05/17/17 04:14 99 35 05/17/17 04:00 96.9 82 14 163/78 (106) 100 05/17/17 04:00 82 05/17/17 04:00 45 05/17/17 02:00 78 05/17/17 00:40 100 40 05/17/17 00:00 45 05/17/17 00:00 75 05/17/17 00:00 97.8 75 20 125/68 (87) 100 05/16/17 22:00 82 05/16/17 20:25 99 40 05/16/17 20:00 98.9 82 14 140/63 (88) 100 05/16/17 20:00 82 05/16/17 20:00 45 05/16/17 19:00 100 Mechanical Ventilator 40 05/16/17 18:00 95 05/16/17 17:09 99 45 05/16/17 16:00 45 05/16/17 16:00 98.2 78 14 126/65 (85) 100 05/16/17 16:00 78 05/16/17 14:00 82 05/16/17 13:15 96 45 05/16/17 12:00 98.0 77 14 171/75 (107) 100 05/16/17 12:00 45 05/16/17 12:00 77 I/O 05/16/17 05/16/17 05/16/17 05/17/17 05/17/17 05/17/17 07:00 15:00 23:00 07:00 15:00 23:00 Intake Total 421 ml 120 ml 120 ml Output Total 725 ml 1050 ml 400 ml Balance -304 ml -930 ml -280 ml IV Total 0 ml Tube Feeding 421 ml 0 ml Other 120 ml 120 ml Output Urine Total 675 ml 1000 ml 300 ml Stool Total 50 ml 50 ml 100 ml Laboratory Laboratory Tests Test 05/17/17 06:25 White Blood Count 14.1 Red Blood Count 3.06 Hemoglobin 9.5 Hematocrit 29.5 Mean Corpuscular Volume 96.3 Mean Corpuscular Hemoglobin 31.2 Mean Corpuscular Hemoglobin Concent 32.4 Red Cell Distribution Width 17.9 Platelet Count 460 Mean Platelet Volume 8.7 Hematology Comments Blood Urea Nitrogen 39 Creatinine 0.35 Random Glucose 208 Total Protein 5.1 Calcium Level 7.3 Sodium Level 144 Potassium Level 4.0 Chloride Level 107 Carbon Dioxide Level 28.2 Anion Gap 9 Estimat Glomerular Filtration Rate 182 Protein Corrected Calcium 8.4 Date/Time Source Procedure Growth Status 05/08/17 04:44 Blood Peripheral Aerobic Blood Culture - Final NO GROWTH IN 5 DAYS Complete 05/08/17 04:44 Blood Peripheral Anaerobic Blood Culture - Final NO GROWTH IN 5 DAYS Complete 05/07/17 21:30 Sputum Endotracheal Gram Stain - Final Complete 05/07/17 21:30 Sputum Culture - Final Serratia Marcescens Complete 05/08/17 04:20 Urine Catheterized Urine Urine Culture - Final NO GROWTH IN 48 HOURS. Complete Imaging Last Impressions Head CT 05/15/17 0000 Signed Impressions: Service Date/Time: May 19:59 - CONCLUSION: 1. 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 2. No bleed or new/acute infarct. Obdulio Simms MD Chest X-Ray 05/15/17 0000 Signed Impressions: Service Date/Time: May 12:38 - CONCLUSION: 1. A tracheostomy tube in good position with its tip 2 cm above the valerie. 2. Stable scattered pulmonary infiltrates bilaterally. 3. Dobbhoff feeding tube has its tip in the distal stomach. Enzo Farooq MD Abdomen X-Ray 05/10/17 0000 Signed Impressions: Service Date/Time: Wednesday, May 10, 2017 22:08 - CONCLUSION: Tip of Dobbhoff catheter is in the antrum of the stomach. Sage Adler MD Gall Bladder Ultrasound 05/08/17 0000 Signed Impressions: Service Date/Time: May 08:23 - CONCLUSION: Focally unremarkable appearance of the gallbladder Obdulio hCun MD Abdomen/Pelvis CT 05/07/17 0000 Signed Impressions: Service Date/Time: Sunday, May 07, 2017 13:23 - CONCLUSION: 1. Large left pneumothorax. 2. Bilateral lower lobe consolidation and bilateral moderate size pleural effusions. 3. Significant soft tissue thickening of the right lateral chest wall and left gluteus muscle. 4. Mild ascites. The findings were called to Dr. Carney. Deangelo Zamora MD Hip and Pelvis X-Ray 05/05/17 0000 Signed Impressions: Service Date/Time: Friday, May 05, 2017 10:59 - CONCLUSION: Left proximal femur trochanteric/subtrochanteric fracture lucency visualized. Postoperative changes. Choco Mustafa MD Chest CT 04/30/17 0000 Signed Impressions: Service Date/Time: Sunday, April 30, 2017 09:20 - CONCLUSION: 1. Bilateral pulmonary infiltrates more pronounced within the lower lobes with tiny bilateral pleural effusions. Material seen filling the lower lobe bronchi bilaterally either related to purulent material or perhaps mucus plugging. Deangelo Wren Jr., MD Carotid Artery Ultrasound 04/24/17 0000 Signed Impressions: Service Date/Time: April 09:45 - CONCLUSION: 1. No hemodynamically significant carotid artery stenosis. Arnie Middleton MD Hip X-Ray 04/21/17 0000 Signed Impressions: Service Date/Time: Friday, April 21, 2017 11:36 - CONCLUSION: Fluoroscopic images during placement of intramedullary siomara left femur. Benja Ramsey MD Physical Exam HEENT: Normocephalic; atraumatic; no jaundice. CHEST: Course breath sounds, tracheostomy, vent CARDIAC: RRR ABDOMEN: Soft, minimally distended, nontender; no hepatosplenomegaly; bowel sounds are present in all four quadrants. PEG tube site without redness or swelling EXTREMITIES: Generalized edema. SKIN: Normal; no rash; no jaundice. HEALTH POLICY ANALYST: Sedated on vent (Fariba Olivera) Assessment and Plan Plan ASSESSMENT: - Dysphagia, FEN. Brought to the ER for AMS/Fall and found to have displaced intertrochanteric fracture, s/p left hip reduction and intramedullary nail fixation on 04/21/17. Her hospitalization was complicated by a large left MCA infarct with diffuse edema throughout the left MCA distribution and she was not a candidate for intracranial intervention due to completed appearance of infarct. Pt has since been in the ICU and is requiring prolonged mechanical ventilation. S/P tracheostomy. S/P EGD with peg tube placement (05/16/17)---> 1. The upper, middle, and distal third of the esophagus were carefully inspected and no abnormalities were noted. The z-line was well seen at the GEJ. The endoscope was pushed into the fundus which was normal including a retroflexed view. The antrum, first and second part of the duodenum were unremarkable. 2. A hiatal hernia Quiller Tender recommends Glucerna 1.5 @ 45 mls/hr. Site without redness or swelling or drainage. PLAN: - S/P EGD - Glucerna 1.5 at 20cc/hr and increase to 45cc/hr - GI will sign off, please reconsult as needed - Pt seen and examined by Dr. Batres and myself and this note is written on his behalf (Fariba Olivera) Physician Comments Seen and examined with RESEARCH NUTRITIONIST< s/p peg. Use as needed. Flush with water Q shift. Gi will sign off. Thank you (Tiffanie Batres MD) Fariba Olivera May 17, 2017 11:25 Tiffanie Batres MD May 17, 2017 12:32
--- NOTE | 2017-05-17 11:36 | HHI.FPPN ---
Subjective Remarks Ms Hein remains in a prone position with her eyes closed and was unresponsive today to word or light touch. Per reports her daughter comes in in the evening. She is s/p trach 2 days ago and PEG yesterday. Per GI she will be started on glucerna today and gradually titrated up. Objective Vitals Vital Signs Date Time Temp Pulse Resp B/P (MAP) Pulse Ox O2 Delivery O2 Flow Rate FiO2 05/17/17 10:01 100 35 05/17/17 06:00 77 05/17/17 04:14 99 35 05/17/17 04:00 96.9 82 14 163/78 (106) 100 05/17/17 04:00 82 05/17/17 04:00 45 05/17/17 02:00 78 05/17/17 00:40 100 40 05/17/17 00:00 45 05/17/17 00:00 75 05/17/17 00:00 97.8 75 20 125/68 (87) 100 05/16/17 22:00 82 05/16/17 20:25 99 40 05/16/17 20:00 98.9 82 14 140/63 (88) 100 05/16/17 20:00 82 05/16/17 20:00 45 05/16/17 19:00 100 Mechanical Ventilator 40 05/16/17 18:00 95 05/16/17 17:09 99 45 05/16/17 16:00 45 05/16/17 16:00 98.2 78 14 126/65 (85) 100 05/16/17 16:00 78 05/16/17 14:00 82 05/16/17 13:15 96 45 05/16/17 12:00 98.0 77 14 171/75 (107) 100 05/16/17 12:00 45 05/16/17 12:00 77 I/O 05/16/17 05/16/17 05/16/17 05/17/17 05/17/17 05/17/17 07:00 15:00 23:00 07:00 15:00 23:00 Intake Total 421 ml 120 ml 120 ml Output Total 725 ml 1050 ml 400 ml Balance -304 ml -930 ml -280 ml IV Total 0 ml Tube Feeding 421 ml 0 ml Other 120 ml 120 ml Output Urine Total 675 ml 1000 ml 300 ml Stool Total 50 ml 50 ml 100 ml Result Diagram: 05/17/17 0625 05/17/1725 Objective Remarks CONSTITUTIONAL/GEN: Nonverbal, lying in bed with tracheostomy tube in place. Patient's eyes are closed today. HEAD: Normocephalic. Atraumatic. LUNGS: Coarse breath sounds bilaterally but moving air well CARDIOVASCULAR: Regular rate and regular rhythm. Lower extremity bilateral pitting edema, improving. Right hand still puffy, but improving. Left arm much improved today without any pitting edema. GI/ABD: has bandage wrapped around abdomen from PEG tube NEURO: Intubated. Patient has flaccid paralysis on the right side. Moves left side spontaneously but intermittently. : Dark yellow urine draining into moser bag MUSC: SCDs on bilateral lower extremities. Pedal pulses weak. SKIN: Erythematous sacral wound Procedures ORIF 04/21/17 Intubation 04/30/17 Date of Insertion: May 02, 2017 A/P Assessment and Plan 76 y/o female with HTN, DM, CVA admitted for DKA and hip fracture. Now with massive left MCA stroke, right hemiplegia and midline shift resolving. Neuro and venture capital analyst consulted. Working with palliative care and family for goals of care. 05/07 CT abdomen/pelvis w/large pneumothorax on left side decompressed with chest tube. Chest tube pulled 05/12. Tracheostomy placed 05/15. PEG tube 05/16. -Overall poor prognosis, pursuing goals of care discussion with daughter (HCPOA) , but at this time daughter wishes continued intervention -05/09 - extensive discussion with daughter today indicates no willingness to pursue comfort measures only. Daughter continues to ask for aggressive management of her mother's condition; will continue to engage in this discussion -05/11--CXR w/bilateral pleural effusions vs pulmonary edema--diuresis ordered -05/14 -- little interval change. Wt down from 70 kg on 05/10 to 59kg today. CPAP trials progressing. Family meeting with daughter yielded no change in code status or goals of care. Plan is to re-join with discussing trach and PEG feeding tube with daughter in 2-3 days time. -05/15 -- Daughter consented to tracheostomy and procedure was performed today. CPAP trials still progressing. No other changes. -05/16 -- Tracheostomy in place, pt with eyes open today responding to simple commands. GI consulted with PEG tube planned for today. -05/17 - starting PEG tube feeds Discharge Planning Pending stroke progression and discussion for goals of care she has no Insurance. Medicaid was applied for which takes months and is often not approved in cases like this. she cannot go to a vent facility nor a SNF without Insurance. Case management explained that to her daughter Problem List: (1) Acute CVA (cerebrovascular accident) ICD Codes: I63.9 - Cerebral infarction, unspecified Status: Acute Plan: Patient found minimally responsive with neurological deficits around 0820 04/24. Stat CT of head was ordered, which showed large left MCA infarct. Diffuse edema throughout the left MCA distribution, suggest completed infarct. This was discussed and was not a candidate for intracranial intervention. CT (04/30): Reduction in midline shift to 11mm. Unchanged large left MCA infarction. CT head (05/06) shows: Evolving large left-sided MCA territory infarct with minimally improved [id number]-[id number] subfalcine shift. No intercurrent hemorrhage or other acute abnormality. Echocardiogram- The left ventricular systolic function is low normal with an estimated ejection fraction in the range of 50-55%. Mild concentric left ventricular hypertrophy. Normal left ventricular size. Cfaus-no-wyda mitral valve regurgitation. Carotid Artery US- No hemodynamically significant carotid stenosis -Consulted venture capital analyst, appreciate recs -Intubated/sedated -IV hydration, watch for hypotension. -Keep systolic to less than 220 initially -Lactated Ringer's reduced to 75 ml/hr -Poor prognosis -Neurosurgery consulted -Recommended conservative management -Keep Na in 145-154 range -Tube feeds: Glucerna 1.5 mLs for diet via PEG tube, starting at low dose now then will start -Senior Integration Developer consult for management and recs but will need to do maintenance fluids in the meantime until her PEG tube feeds are increased and she can change to water boluses in the PEG tube -Consulted palliative care-appreciate recs -Case discussed with daughter in-person about goals of care, limited treatment options, and poor prognosis.hope to be involved in future family discussions, can let palliative know this -Daughter continues to want aggressive care. Wishes to continue aggressive medical treatment despite prognosis -Neurology consulted-appreciate recs -Rectal ASA -Lovenox 40mg daily (2) HCAP (healthcare-associated pneumonia) ICD Codes: J18.9 - Pneumonia, unspecified organism Status: Acute Plan: Suspect possible HCAP. Persistent leukocytosis. Possible aspiration Chest CT (04/30): Bilateral pulmonary infiltrates more pronounced within lower lobes with b/l pleural effusions. Material in lower lobe bronchi b/l, purulent or mucus plugging 04/30 Sputum culture showing staph aureus and Serratia Marcescens Legionella and strep pneumo urine tests negative CXR 05/02: Increased airspace opacity bilaterally. The pattern may represent pulmonary edema. There is likely a left pleural effusion. CXR 05/08: Stable diffuse consolidation of right warm to much lesser extent left perihilar region consistent with pneumonia or asymmetric pulmonary vascular congestion CXR 05/09: no pneumothorax, but small subcutaneous emphysema in left chest, patchy opacity in right lower lung consistent with pneumonia or pulmonary vascular congestion. Continue antibiotic therapy as per ID recs -Hold Cefepime 2g IV daily 05/14 -Repeat blood cultures (05/07) pending , with 1/ positive; possible contaminant -Sputum cx 05/07 reveals Serratia marascens susceptible to cefepime and levo -Duonebs treatments q6h Antibiotic History -Discontinued Cefepime 2g IV daily (04/30 - d/c 05/04 ) -Discontinued Vancomycin IV (04/30 - d/c 05/04 ) -Discontinued Flagyl 500mg q8h (04/29 - 05/13) -Discontinued Levaquin IV 750 mg (05/04-05/13) HCAP (3) Fluid overload ICD Codes: E87.70 - Fluid overload, unspecified Status: Acute Plan: Tap Puller noted fluid overload and has been diuresing; pt's wt on 04/21 51.9 kg -->83.4kg on 05/07 --> 59.8 kg on 05/16 -Lasix IV bid -Metolazone and Bumex d/c'd will just give maintenance fluids. her right side is likely edematous as she has not moved at all. can consider elevation if desired. (4) Pneumothorax ICD Codes: J93.9 - Pneumothorax, unspecified Status: Resolved Plan: Impression: Noticed on 05/06 CT abdomen/pelvis- large left pneumothorax, bilateral lower lobe consolidation and bilateral moderate-sized pleural effusions. S/P chest tube placement. Chest tube to waterseal for the last few days. Chest tube output 50 mL or less for 4 days. -Chest tube pulled on 05/12/17 -Follow up chest x-ray today -Chest tube pulled 05/13 (5) Type 2 diabetes mellitus ICD Codes: E11.9 - Type 2 diabetes mellitus without complications Status: Chronic Plan: Admitted for DKA which has now resolved. Hemoglobin A1C is 12.9. Diabetes Type I is uncontrolled. -Continue Levemir 10 units BID due to hypoglycemia at higher dose -Medium dose insulin sliding scale with goal blood glucose between 140 and 180 -Glucerna for PEG tube feedings (6) Atrial fibrillation ICD Codes: I48.91 - Unspecified atrial fibrillation Status: Acute Plan: Hx of intermittent Afib. Resolved with administration of Lopressor. -Continue to monitor -Lopressor PRN (7) Hip fracture ICD Codes: S72.009A - Fracture of unspecified part of neck of unspecified femur , initial encounter for closed fracture Status: Acute Plan: S/P left hip reduction and intramedullary nail fixation on 04-21-17 -Consulted orthopedics-appreciate recs * WBAT * Daily dressing changes -Calcium/Vitamin D -Fluids as above -Tylenol, morphine PRN pain (8) Hypertension ICD Codes: I10 - Essential (primary) hypertension Status: Acute Plan: IV hydration. BPs wnl overnight -Antihypertensives to keep SBP<180 -Lasix or Bumex for diuresis as required (9) On mechanically assisted ventilation ICD Codes: Z99.11 - Dependence on respirator [ventilator] status Plan: Impression: s/p trach procedure 05/15. On CPAP trial to wean off ventilation; 40% FiO2 -Continue weaning trials as tolerated (10) Elevated LFTs ICD Codes: R79.89 - Other specified abnormal findings of blood chemistry Plan: Impression: LFT elevations with alkaline phosphatase gradually rising from 351-1931 and AST rising from 50s to 217. Liver/biliary etiology expected as GGT 787. Gallbladder ultrasound obtained by venture capital analyst 05/08; focally unremarkable in appearance of gallbladder -Incrementally resolving since chest tube placement -Monitor at this time (11) Sacral decubitus ulcer ICD Codes: L89.159 - Pressure ulcer of sacral region, unspecified stage Plan: Patient with beginnings of a sacral decubitus ulcer. -Wound care consult ordered and appreciated (12) Fluids, Electrolytes, and Nutrition Status: Acute Plan: Fluids: IVF as above Electrolyte: on electrolyte protocol Nutrition: Glucerna tube feeds, added beneprotein, can see if she needs this with her PEG tube feeds DVT ppx: SCDs/lovenox 40 mg daily GI ppx: protonix Colace, fleet enema mineral oil (13) Sepsis ICD Codes: A41.9 - Sepsis, unspecified organism Status: Acute Plan: Impression: Pt met SIRS criteria with tachycardia, leukocytosis Leukocytosis resolved Cultures: 05/07 Blood cultures and sputum cultures negative to date 04/30 Sputum culture with staph, Serratia 04/29 blood culture with staph -See antibiotics as below -Culture results as below -Monitor vitals (14) Abdominal distension ICD Codes: R14.0 - Abdominal distension (gaseous) Status: Acute Plan: Impression: Abdominal distension much improved today; first noted on exam 05/05 with serial KUBs neg for etiology. In association with transaminase elevation and Alk P >1k and GGT elevation. s/p large BM 05/07 per nursing staff 05/06 - CT abdomen/pelvis- large left pneumothorax, bilateral lower lobe consolidation and bilateral moderate-sized pleural effusions, significant soft tissue thickening of right lateral chest wall and left gluteus. Mild ascites 05/09 - abdominal distension unchanged; however, LFTs resolving following chest tube -Continue to monitor at this time -Continue to follow LFTs 05/11 - abdominal distention seems to be related to diffuse edema, trial of Lasix 20 mg IV twice a day, which was increased to 40 mg IV twice a day 05/12 - much less abdominal distention today. Significant improvement with significant net diuresis of almost 4 L. 05/14 - continues to improve 05/16 - no interval change Problem Qualifiers (1) Fluid overload: Qualified Codes: E87.79 - Other fluid overload (2) Pneumothorax: (3) Type 2 diabetes mellitus: Qualified Codes: E11.9 - Type 2 diabetes mellitus without complications (4) Atrial fibrillation: Qualified Codes: I48.0 - Paroxysmal atrial fibrillation (5) Hip fracture: (6) Hypertension: Qualified Codes: I10 - Essential (primary) hypertension (7) Sacral decubitus ulcer: Qualified Codes: L89.151 - Pressure ulcer of sacral region, stage 1 (8) Sepsis: Qualified Codes: A41.9 - Sepsis, unspecified organism Dawn Guajardo MD May 17, 2017 11:36
[2017-05-17] MEDS: SODIUM CHLOR 0.45% 1000 ML INJ 1,000 ML IV SCH (12:42)
[2017-05-18] VITALS (19 sets, daily range): BP systolic 123–179; BP diastolic 66–80; PULSE 71–110; RESP 14–27; TEMP 98.2–98.8; O2SAT 93–100
[2017-05-18] MEDS: DEXTROSE 50% IN WATER 50 ML SYRINGE IV PRN (00:22)
[2017-05-18] MEDS: SODIUM CHLOR 0.45% 1000 ML INJ 1,000 ML IV SCH ×2 (01:05→14:25)
[2017-05-18 04:27] LABS: AUTOMATED NEUTROPHIL # 11.3 TH/MM3 (1.8-7.7); BASOPHIL # 0.2 TH/MM3 (0-0.2); BASOPHIL % 1.2 % (0.0-2.0); EOSINOPHIL # 0.2 TH/MM3 (0-0.4); EOSINOPHIL % 1.6 % (0.0-4.0); HEMOGLOBIN 9.9 GM/DL (11.6-15.3); LYMPH % 10.1 % (9.0-44.0); LYMPHOCYTE # 1.4 TH/MM3 (1.0-4.8); MEAN CELL VOLUME 96.9 FL (80.0-100.0); MEAN CORPUSCULAR HEMOGLOBIN 30.9 PG (27.0-34.0); MEAN CORPUSCULAR HGB CONC 31.9 % (32.0-36.0); MEAN PLATELET VOLUME 7.7 FL (7.0-11.0); MONOCYTE # 0.5 TH/MM3 (0-0.9); NEUT % 83.1 % (16.0-70.0); PLATELET COUNT 494 TH/MM3 (150-450); WHITE BLOOD COUNT 13.6 TH/MM3 (4.0-11.0)
[2017-05-18 05:19] LABS: ALBUMIN 1.4 GM/DL (3.4-5.0); ALKALINE PHOSPHATASE 1020 U/L (45-117); ALT (GPT) 27 U/L (10-53); AST (GOT) 67 U/L (15-37); BICARBONATE 30.2 MEQ/L (21.0-32.0); BLOOD UREA NITROGEN 34 MG/DL (7-18); CALCIUM 7.6 MG/DL (8.5-10.1); CHLORIDE 105 MEQ/L (98-107); CREATININE 0.32 MG/DL (0.50-1.00); GLOMERULAR FILTRATION RATE 202 ML/MIN (>89); GLUCOSE,RANDOM 88 MG/DL (74-106); SODIUM (NA) 143 MEQ/L (136-145); TOTAL BILIRUBIN ADULT 0.3 MG/DL (0.2-1.0); TOTAL PROTEIN 5.8 GM/DL (6.4-8.2)
[2017-05-18] MEDS: INSULIN ASPART SUPPLEMENTAL SCALE SQ SCH ×4 (08:00→21:00)
--- NOTE | 2017-05-18 08:04 | HHI.CCPN ---
Subjective Remarks/Hospital Course 04/24: 76-year-old female with a medical history significant for prior stroke, diabetes mellitus who was admitted with DKA and a hip fracture for which she underwent ORIF on 04/21. Patient developed altered mental status and was last noted to be okay around 5:30 AM. Subsequently there was a change in her mental status and she was noted to not be moving her right side for which stroke alert was called. Head CT showed large left MCA territory ischemic infarct with edema. Patient was transferred to the ICU by family medicine service in the critical care consult was requested. I evaluated the patient following arrival to the ICU. At that time she was laying in bed with her eyes open however not following commands and had a dense right hemiplegia. Patient was also evaluated by Dr. Malave from neurology. I further discussed current event with patient's daughter following her arrival to the ICU. Per the daughter patient has been living with her since her stroke in 2014 and does ambulate however has been having problems with memory and incontinence as well as gait difficulties. She does not feel patient would want intubation or tracheostomy or PEG tube. 04/25: Patient remains encephalopathic, awake though not following commands consistently. Dense right hemiplegia persists. Appears to be awake enough to protect airway currently. Patient's daughter rescinded DNR and made a full code last evening. 04/26: Remains encephalopathic, not following commands. On Dobbhoff for tube feeds at 30 cc per hour. Had urinary retention and drained 2 L of urine after placing Leavitt catheter today. CT head done this morning with large left MCA territory infarct with left to right midline shift and significant cerebral edema. Hyperglycemia noted. Patient given mannitol earlier for increasing cerebral edema. 04/27: Remains encephalopathic, not following commands. On Dobbhoff tube feeds at 30 cc per hour. When into A. fib with RVR last night which responded with Lopressor 5 mg IV 1 dose. 04/28: Remains encephalopathic, arousable, not following commands. Moves left upper extremity spontaneously. Tolerating Dobbhoff tube feeds. Remains on nasal cannula. 04/29: Encephalopathic, eyes be arousable, moves left upper extremity spontaneously and occasionally opens eyes. Dense right hemiplegia and aphasia persists. On nasal cannula. Dobbhoff tube feeds being advanced. Patient was transfused 1 unit PRBCs yesterday. Urine culture with yeast from yesterday for which fluconazole being started. Had brief run of A. fib with RVR which improved with Lopressor IV, currently in sinus rhythm. 04/30: Worsening hypoxemic respiratory failure, currently on partial nonrebreather. Remains lethargic. WBC count increased from 14.6 today 20.7. Chest x-ray shows bilateral worsening infiltrates and small pleural effusions. Sodium 154, weight up by 8 KG. Albumin 1 mg Bumex 1. Also one dose of albumin. Remains in sinus tachycardia. Tmax 101.3 05/01: Patient was intubated yesterday for lack of airway protection, and severe hypoxemic respiratory failure from aspiration pneumonia involving multiple lobes. Patient is on the vent lethargic, no spontaneous eye opening. Chest x- ray remains unchanged. Remains intermittently febrile Tmax 101.3. WBC count improving 05/02: Remains critically ill with no improvement in mental status. Spiking fever of 101.7. Blood culture and sputum culture with staph aureus sputum also growing GNR, WBC count 22,000 now indicating worsening sepsis. Daughter still requesting aggressive care. Palliative care is following 05/03: S/P large area dominant hemisphere CVA. No neurological improvement. Now with pneumonia (infiltrate, fever, leukocytosis) and appropriate abx coverage. She will have a hard time surviving the hip fx, CVA, and pneumonia. Palliative Care needs to be a mainstay of our plan. 05/04: No improvement in neuro status. Sputum C&S allows us to narrow abx coverage to levaquin alone. Lungs remain quite congested. Enteral nutrition tolerated. 05/05: No improvement in neuro status. Moves left arm spontaneously. Flaccid right side. Unresponsive. Persistent mild hypoglycemia - will cut Levemir 50%. Abdomen more distended, check KUB. 05/06: CT head with massive left MCA infarction and > 1 cm shift in right handed woman. She opens eyes, does not track. 05/07: Patient open eyes. Attempts to respond. [place] Citizen speaking. Tolerating tube feeds. Positive bowel movement. Volume overloaded. Subjective 05/08: Tmax 99.4. Potassium being replaced. Ultrasound gallbladder currently pending. Transaminases are trending downward. Gently diurese. 05/09: Alk phos decreasing. Remains with good urine output. Neurological status not improving. 05/10: Fixed neuro deficit unchanged. Profound CVA. 05/11: Appears to track with eyes today. No improvement in motor function. Remains very edematous, diuretics doubled. 05/12: Continued thick secretions. Afebrile, leukocytosis resolved. 05/13: CT head with completed left MCA stroke, persistent edema and 5 mm shift away. Does not last long on SBTs - major decision now is trach/PEG. 05/14: Daughter has decided to proceed with trach and PEG. I have been pessimistic with her about chances for a meaningful recovery. 05/15: Plan for trach today. No change in neuro status. Still ventilator dependent. 05/16: Trach completed. Await PEG and disposition. 05/17: PEG placed 05/16. Start TFs today after nutrition consult. Work to place patient. 05/18: No improvement. Does open eyes, no focus or tracking. Completed large dominant (left) hemisphere CVA in right handed woman with severe deficit. Medicaid pending status, [employer] is following. Objective Vital Signs Date Time Temp Pulse Resp B/P (MAP) Pulse Ox O2 Delivery O2 Flow Rate FiO2 05/18/17 07:36 97 35 05/18/17 07:00 Mechanical Ventilator 15.00 05/18/17 06:00 87 05/18/17 04:00 98.8 14 179/80 (113) Intake and Output 05/18/17 05/18/17 05/19/17 08:00 16:00 00:00 Intake Total 1309 ml Output Total 900 ml Balance 409 ml Result Diagram: 05/18/17 0342 05/18/17 0342 Imaging Last Impressions Chest X-Ray 05/07/17 0400 Signed Impressions: Service Date/Time: Sunday, May 07, 2017 04:38 - CONCLUSION: 1. Stable Low-lying ETT with tip approximately 1 cm above the valerie. 2. Mild interval progression of bilateral airspace consolidation exaggerated by patient rotation. 3. Increased small left pleural effusion. Alejo De La Vega MD Abdomen/Pelvis CT 05/07/17 0000 Signed Impressions: Service Date/Time: Sunday, May 07, 2017 13:23 - CONCLUSION: 1. Large left pneumothorax. 2. Bilateral lower lobe consolidation and bilateral moderate size pleural effusions. 3. Significant soft tissue thickening of the right lateral chest wall and left gluteus muscle. 4. Mild ascites. The findings were called to Dr. Canrey. Deangelo Zamora MD Head CT 05/06/17 0000 Signed Impressions: Service Date/Time: Saturday, May 06, 2017 04:18 - CONCLUSION: 1. Evolving large left-sided MCA territory infarct with minimally improved [id number] subfalcine shift. 2. No intercurrent hemorrhage or other acute abnormality. Alejo De La Vega MD Abdomen X-Ray 05/06/17 0000 Signed Impressions: Service Date/Time: Saturday, May 06, 2017 17:42 - CONCLUSION: Dobbhoff feeding tube tip near the gastroduodenal junction. Obdulio Simms MD Hip and Pelvis X-Ray 05/05/17 0000 Signed Impressions: Service Date/Time: Friday, May 05, 2017 10:59 - CONCLUSION: Left proximal femur trochanteric/subtrochanteric fracture lucency visualized. Postoperative changes. Choco Mustafa MD Chest CT 04/30/17 0000 Signed Impressions: Service Date/Time: Sunday, April 30, 2017 09:20 - CONCLUSION: 1. Bilateral pulmonary infiltrates more pronounced within the lower lobes with tiny bilateral pleural effusions. Material seen filling the lower lobe bronchi bilaterally either related to purulent material or perhaps mucus plugging. Deangelo Wren Jr., MD Carotid Artery Ultrasound 04/24/17 0000 Signed Impressions: Service Date/Time: April 09:45 - CONCLUSION: 1. No hemodynamically significant carotid artery stenosis. Arnie Middleton MD Hip X-Ray 04/21/17 0000 Signed Impressions: Service Date/Time: Friday, April 21, 2017 11:36 - CONCLUSION: Fluoroscopic images during placement of intramedullary siomara left femur. Benja Ramsey MD Objective Remarks Gen: 76-year-old female HEENT: Pallor present. Moderate ET tube secretions Neck: Orally intubated. Chest/pulmonary: Coarse breath sounds. Chest tube d/c'd Cardiovascular: RRR. S1, S2, without murmur, rub GI/abdomen: Distended. Nontender. Active bowel sounds are present. Extremities: Warm bilaterally, anasarca 2+ upper and 2+ lower extremity edema. Incision sites over left hip, thigh ORIF site clean dry and intact. Neuro: Intubated, on no sedation. Has eye opening today and grimaces spontaneously. Dense right hemiplegia noted. Withdraws left upper extremity, Withdraws LLE. No change. Pupils 2 mm, react. Date of Insertion: May 02, 2017 A/P Assessment and Plan Neuro/Psych: Left MCA CVA - 12 mm of [id number] subfalcine herniation - right-sided hemiplegia Acute encephalopathy History CVA Follow neuro status closely. Continue Aspirin 325 mg by mouth daily Patient was not a candidate for thrombolysis per discussion with neurology and radiology. Repeat head CT 05/05 showed slight improvement in the midline shift and mass effect Neurosurgery consulted 04/30- Dr. López, recommended conservative management Neurology following - Dr. Malave On morphine 1-2 every 3 hours prn only. Cardiovascular: Hypertension IV fluids currently on hold due to edema As needed Antihypertensives to keep systolic blood pressure less than to 180 mmHg Echocardiogram 04/24 - EF 50 to 55%. Mild concentric LVH. Pulmonary: Acute hypoxic respiratory failure - aspiration possible HCAP Large left pneumothorax status post #10 [place] chest tube 05/07 PRVC 14/400/09/08/49 Ventilator bundle Ipratropium/albuterol aerosols every 6 hours with albuterol aerosols every 2 hours. Dyspnea Intubated on 04/30/17 for worsening hypoxemic respiratory failure, aspiration pneumonia Chest x-ray shows 05/08 revealed increasing infiltrate/small pleural effusion left side. Right-sided chest tube in place. CT of the chest 04/30/17 showed severe bibasilar consolidation, and evidence of aspiration Chest tube d/c'd 05/12 Daily SBTs, remains weak on trials 05/18 GI/liver: Elevated transaminases Hypoalbuminemia Moderate to severe protein calorie malnutrition Dobbhoff for tube feedings and medications. Continue tube feeding with Glucerna 1.5 goal 45 cc an hour On hold 05/08 due to possible cholecystostomy tube placement depending on ultrasound gallbladder Lansoprazole 30 mg daily for GI regimen Docusate sodium 100 twice a day, Senokot 8.6 twice a day, polyethylene glycol 17 grams twice a day and lactulose 30 cc 4 times a day Evaluate CT abdomen/pelvis 05/07 - mild ascites. Large left hemothorax. Right greater than left pleural effusion. Avoid hepatotoxic drugs LFTs improving Alk Phos elevated again 05/18. Endocrine: Diabetes mellitus Detemir 20 units subcutaneous every 12 hours. Currently hold while nothing by mouth Sliding scale insulin Accu-Cheks to maintain euglycemia/low regimen Holding glimepiride 4 mill grams by mouth daily On glucerna, not requiring levemir anymore. Continue SSI /Renal/FEN: Hypopotassemia Strict intake output, monitor and replete electrolytes, follow BUN/creatinine. Leavitt catheter placed for urinary retention on 04/26. Heme: Chronic Rivaroxaban use Leukocytosis Normocytic anemia Thrombocytosis Follow CBC and coags. On subcutaneous enoxaparin Hemoglobin currently stable. No indications for transfusion of blood proximally at this time ID: MSSA bacteremia Serratia/staph aureus pneumonia C glabrata UTI Pertinent cultures Urine culture 04/26/17 sofie glabrata Blood culture 04/29/17 1 out of 4 bottles staph aureus Sputum culture 04/30/17 staph aureus and Serratia. Blood cultures 2, sputum 1 and urine 05/08 pending -> Serratia On iv levaquin, oral flagyl. Per ID. MSK: Left Intertroch Hip Fx s/p IMN - POD 14 Vitamin D deficiency Prophylaxis: SCDs. Enoxaparin 40 mg sq daily-cleared by Dr. Ananda SANDS - lansoprazole Overall impression: Devastating CVA. No improvement. Lengthy talk involving daughter and Palliative Care service. I have re-enforced poor prognosis. We have been unable to wean the ventilator; she repeatedly fails SBTs. PEG placed. No change in neuro status. Medicaid pending for placement. Charles Pedraza MD May 18, 2017 08:04
[2017-05-18] MEDS: CHOLECALCIFEROL (VIT D3) 5000 UNIT CAP PO SCH (08:26)
[2017-05-18] MEDS: SODIUM CHLORIDE 0.9% FLUSH 5 ML FLUSH IV FLUSH SCH ×2 (08:26→20:26)
[2017-05-18] MEDS: BENEPROTEIN POWDER 1 PACK G-TUBE SCH ×3 (08:26→18:01)
[2017-05-18] MEDS: ASPIRIN 325 MG TAB DOBHOFF SCH (08:27)
[2017-05-18] MEDS: LANSOPRAZOLE SOLUTAB 30 MG TAB NG SCH (08:27)
[2017-05-18] MEDS: POTASSIUM CHLOR 20 MEQ PREMIX 100 ML IV PRN ×2 (08:29→10:41)
[2017-05-18] MEDS: DOCUSATE SODIUM 100 MG/10 ML UDC PO SCH ×2 (08:30→20:26)
[2017-05-18] MEDS: SENNOSIDES SYRUP 8.8 MG/5 ML CUP OG-TUBE SCH ×2 (08:30→20:26)
[2017-05-18] MEDS: LACTULOSE SYRUP 20 GM/30 ML CUP PO SCH ×4 (08:30→20:27)
[2017-05-18] MEDS: CALCIUM/VITAMIN D 250 MG/125 U TAB PO SCH ×3 (08:30→18:02)
[2017-05-18] MEDS: POLYETHYLENE GLYCOL 17 GM PKG OG-TUBE SCH ×2 (08:30→20:26)
[2017-05-18] MEDS ORDERED: FUROSEMIDE 40 MG/4 ML VIAL IV PUSH SCH (09:00)
--- NOTE | 2017-05-18 09:51 | HHI.FPPN ---
Subjective Remarks Ms Hein had no acute events overnight. She has her eyes open this morning and moves her head to see us, but cannot respond to commands and cannot track my finger with her eyes. Blinks eyes to threat. Does not appear to respond to verbal cues although she may be able to hear. Trach is patent. Pt receiving glucerna 1.5 tube feeds at 45ml/hr, the prescribed rate. (Chuy Camacho MD R1) Objective Vitals Vital Signs Date Time Temp Pulse Resp B/P (MAP) Pulse Ox O2 Delivery O2 Flow Rate FiO2 05/18/17 08:00 98.7 110 24 135/73 (93) 98 05/18/17 08:00 110 05/18/17 08:00 35 05/18/17 07:36 97 35 05/18/17 07:00 96 Mechanical Ventilator 15.00 35 05/18/17 06:00 87 05/18/17 04:02 97 35 05/18/17 04:00 93 05/18/17 04:00 35 05/18/17 04:00 98.8 93 14 179/80 (113) 93 05/18/17 02:00 91 05/18/17 01:02 97 35 05/18/17 00:00 98.5 72 14 133/66 (88) 100 05/18/17 00:00 35 05/18/17 00:00 72 05/17/17 22:00 73 05/17/17 20:38 99 35 05/17/17 20:00 69 05/17/17 20:00 35 05/17/17 20:00 99.0 69 16 114/55 (74) 99 05/17/17 19:00 98 Mechanical Ventilator 35 05/17/17 18:00 70 05/17/17 17:59 100 35 05/17/17 16:00 70 05/17/17 16:00 98.3 69 21 131/63 (85) 98 05/17/17 16:00 45 05/17/17 14:00 68 05/17/17 13:25 100 45 05/17/17 12:00 98.2 70 19 128/64 (85) 99 05/17/17 12:00 35 05/17/17 12:00 69 05/17/17 10:01 100 35 05/17/17 10:00 75 I/O 05/17/17 05/17/17 05/17/17 05/18/17 05/18/17 05/18/17 07:00 15:00 23:00 07:00 15:00 23:00 Intake Total 120 ml 465 ml 1309 ml Output Total 400 ml 700 ml 900 ml Balance -280 ml -235 ml 409 ml Intake Oral 0 ml IV Total 375 ml 562 ml Tube Feeding 65 ml 547 ml Tube Irrigant 25 ml Other 120 ml 200 ml Output Urine Total 300 ml 700 ml 900 ml Stool Total 100 ml (Chuy Camacho MD R1) Result Diagram: 05/18/1734105/18/17341 Objective Remarks CONSTITUTIONAL/GEN: Nonverbal, lying in bed with tracheostomy tube in place and glucerna 1.5 tube feed @ 45ml/hr. Patient's eyes are open today; she can move head, open and close left hand spontaneously, but does not appear to follow simple commands. HEAD: Normocephalic. Atraumatic. Right side facial droop. LUNGS: Coarse breath sounds bilaterally but moving air well CARDIOVASCULAR: Regular rate and regular rhythm. Lower extremity bilateral pitting edema to bilateral knees. Right hand still puffy, but improving. Right arm with some skin breakdown and mild weeping. Left arm much improved today without any pitting edema. GI/ABD: has bandage wrapped around abdomen from PEG tube NEURO: Intubated. Patient has flaccid paralysis on the right side. Moves left side spontaneously but intermittently. : Dark yellow urine draining into moser bag. MUSC: SCDs on bilateral lower extremities. Pedal pulses weak. SKIN: Erythematous sacral wound Procedures ORIF 04/21/17 Intubation 04/30/17 Medications and IVs Current Medications Medications (Trade) Dose Ordered Sig/Zeferino Route Start Time Stop Time Status Last Admin (Zofran Inj) 4 mg Q6H PRN IV PUSH 04/20/17 15:00 04/30/17 02:28 (Morphine Inj) 1 mg Q3H PRN IV 04/20/17 17:15 04/28/17 18:15 (Morphine Inj) 2 mg Q3H PRN IV 04/20/17 17:15 04/30/17 02:29 (Narcan Inj) 0.4 mg UNSCH PRN IV 04/20/17 17:15 (Milk Of Magnesia Liq) 30 ml Q12H PRN PO 04/20/17 20:30 (Senokot) 17.2 mg Q12H PRN PO 04/20/17 20:30 04/23/17 22:55 (Dulcolax Supp) 10 mg DAILY PRN RECTAL 04/20/17 20:30 (Oscal-D 250-125) 250 mg TID PO 04/21/17 13:00 05/18/17 08:30 (Vitamin D3) 5,000 units DAILY PO 04/22/17 09:00 05/18/17 08:26 (NS Flush) 2 ml BID IV FLUSH 04/24/17 21:00 05/18/17 08:26 (NS Flush) 2 ml UNSCH PRN IV FLUSH 04/24/17 09:30 (Glucagon Inj) 1 mg UNSCH PRN IM/SQ 04/24/17 18:15 (Aspirin) 325 mg DAILY DOBHOFF 04/27/17 09:00 05/18/17 08:27 (D50w (Syr) Inj) 25 ml UNSCH PRN IV 04/26/17 20:30 05/18/17 00:22 (Lopressor Inj) 5 mg Q5M PRN IV PUSH 04/27/17 04:00 05/03/17 18:26 Potassium Chloride 100 ml @ 50 mls/hr Q2H PRN IV 04/27/17 08:45 Potassium Chloride 100 ml @ 50 mls/hr Q2H PRN IV 04/27/17 08:45 05/15/17 06:23 (K-Lyte Cl Eff) 50 meq UNSCH PRN PO 04/27/17 08:45 Potassium Chloride 100 ml @ 25 mls/hr UNSCH PRN IV 04/27/17 08:45 05/04/17 19:07 Potassium Chloride 100 ml @ 50 mls/hr Q2H PRN IV 04/27/17 08:45 05/18/17 08:29 Magnesium Sulfate 4 gm/Sodium Chloride 100 ml @ 50 mls/hr UNSCH PRN IV 04/27/17 08:45 (Mag-Ox) 800 mg UNSCH PRN PO 04/27/17 08:45 Magnesium Sulfate 2 gm/Sodium Chloride 100 ml @ 50 mls/hr UNSCH PRN IV 04/27/17 08:45 (K-Phos) 2,000 mg Q4H PRN PO 04/27/17 08:45 04/28/17 15:38 Sodium Phosphate 30 mmol/Sodium Chloride 250 ml @ 42 mls/hr UNSCH PRN IV 04/27/17 08:45 04/27/17 23:59 (K-Phos) 2,000 mg UNSCH PRN PO/TUBE 04/27/17 08:45 05/08/17 06:32 Potassium Phosphate 30 mmol/ Sodium Chloride 260 ml @ 42 mls/hr UNSCH PRN IV 04/27/17 08:45 05/04/17 20:54 (NovoLOG SUPPLEMENTAL SCALE) 1 ACHS SLIDING SCALE SQ 04/28/17 16:00 05/16/17 21:53 (Lovenox Inj) 40 mg Q24H SQ 05/01/17 08:00 Future Hold 05/14/17 09:55 (Colace Liq) 100 mg Q12HR PO 05/07/17 21:00 05/16/17 20:56 (Senna Liq) 8.8 mg BID OG-TUBE 05/07/17 21:00 05/17/17 09:11 (Lactulose Liq) 30 ml QID PO 05/07/17 18:00 05/16/17 20:56 (Miralax) 17 gm BID OG-TUBE 05/07/17 21:00 05/16/17 20:56 (Albuterol Neb) 2.5 mg Q2HR NEB PRN NEB 05/07/17 13:00 05/14/17 08:36 (Prevacid Odt) 30 mg DAILY NG 05/08/17 09:00 05/18/17 08:27 (Beneprotein Powder) 1 pack TID G-TUBE 05/12/17 13:00 05/18/17 08:26 Cefazolin Sodium 1000 mg/Sodium Chloride 100 ml @ 200 mls/hr AVIATION ELECTRICAL TECHNICIAN IV 05/15/17 17:15 05/18/17 17:14 05/16/17 12:35 Sodium Chloride 1,000 ml @ 75 mls/hr [id number] IV 05/17/17 11:45 05/17/17 12:42 (Lasix Inj) 40 mg DAILY IV PUSH 05/18/17 09:00 05/18/17 08:29 (Chuy Camacho MD R1) Urinary Catheter: Yes Moser insert reason: Prolonged Immobilization Date of Insertion: May 08, 2017 (changing it today) (Chuy Camacho MD R1) A/P Assessment and Plan 76 y/o female with HTN, DM, CVA admitted for DKA and hip fracture. Now with massive left MCA stroke, right hemiplegia and midline shift resolving. Neuro and diesel service apprentice consulted. Working with palliative care and family for goals of care. 05/07 CT abdomen/pelvis w/large pneumothorax on left side decompressed with chest tube. Chest tube pulled 05/12. Tracheostomy placed 05/15. PEG tube 05/16. -Overall poor prognosis, pursuing goals of care discussion with daughter (HCPOA) , but at this time daughter wishes continued intervention -05/09 - extensive discussion with daughter today indicates no willingness to pursue comfort measures only. Daughter continues to ask for aggressive management of her mother's condition; will continue to engage in this discussion -05/11--CXR w/bilateral pleural effusions vs pulmonary edema--diuresis ordered -05/14 -- little interval change. Wt down from 70 kg on 05/10 to 59kg today. CPAP trials progressing. Family meeting with daughter yielded no change in code status or goals of care. Plan is to re-join with discussing trach and PEG feeding tube with daughter in 2-3 days time. -05/15 -- Daughter consented to tracheostomy and procedure was performed today. CPAP trials still progressing. No other changes. -05/16 -- Tracheostomy in place, pt with eyes open today responding to simple commands. GI consulted with PEG tube planned for today. -05/17 - starting PEG tube feeds -05/18 - Glucerna 1.5 feed through PEG tube at 45ml/hr; changing moser out today (10 days); opens eyes but cannot track; does not respond to commands; still on Ancef IV for PEG and trach procedures. Discharge Planning Pending stroke progression and discussion for goals of care she has no Insurance. Medicaid was applied for which takes months and is often not approved in cases like this. she cannot go to a [facility] facility nor a SNF without Insurance. Case management explained that to her daughter (Chuy Camacho MD R1) Attending Attestation Patient seen and examined. Case reviewed and discussed with the resident team. Agree with plan of care as discussed with me and documented in the resident note. increased glucoses once she is on full rate of G tube feeds. will need her insulin adjusted over the next few days (Dawn Guajardo MD) Problem List: (1) Acute CVA (cerebrovascular accident) ICD Codes: I63.9 - Cerebral infarction, unspecified Status: Acute Plan: Patient found minimally responsive with neurological deficits around 0820 04/24. Stat CT of head was ordered, which showed large left MCA infarct. Diffuse edema throughout the left MCA distribution, suggest completed infarct. This was discussed and was not a candidate for intracranial intervention. CT (04/30): Reduction in midline shift to 11mm. Unchanged large left MCA infarction. CT head (05/06) shows: Evolving large left-sided MCA territory infarct with minimally improved [id number] subfalcine shift. No intercurrent hemorrhage or other acute abnormality. Echocardiogram- The left ventricular systolic function is low normal with an estimated ejection fraction in the range of 50-55%. Mild concentric left ventricular hypertrophy. Normal left ventricular size. Goylo-vo-wyhu mitral valve regurgitation. Carotid Artery US- No hemodynamically significant carotid stenosis -Consulted diesel service apprentice, appreciate recs -Intubated/sedated -IV hydration, watch for hypotension. -Keep systolic to less than 220 initially -Lactated Ringer's reduced to 75 ml/hr -Poor prognosis -Neurosurgery consulted -Recommended conservative management -Keep Na in 145-154 range -Tube feeds: Glucerna 1.5 mLs for diet via PEG tube, starting at low dose now then will start -Beauty Parlor Cleaner consult for management and recs but will need to do maintenance fluids in the meantime until her PEG tube feeds are increased and she can change to water boluses in the PEG tube -Consulted palliative care-appreciate recs -Case discussed with daughter in-person about goals of care, limited treatment options, and poor prognosis.hope to be involved in future family discussions, can let palliative know this -Daughter continues to want aggressive care. Wishes to continue aggressive medical treatment despite prognosis -Neurology consulted-appreciate recs -Rectal ASA -Lovenox 40mg daily (2) HCAP (healthcare-associated pneumonia) ICD Codes: J18.9 - Pneumonia, unspecified organism Status: Acute Plan: Suspect possible HCAP. Persistent leukocytosis. Possible aspiration Chest CT (04/30): Bilateral pulmonary infiltrates more pronounced within lower lobes with b/l pleural effusions. Material in lower lobe bronchi b/l, purulent or mucus plugging 04/30 Sputum culture showing staph aureus and Serratia Marcescens Legionella and strep pneumo urine tests negative CXR 05/02: Increased airspace opacity bilaterally. The pattern may represent pulmonary edema. There is likely a left pleural effusion. CXR 05/08: Stable diffuse consolidation of right warm to much lesser extent left perihilar region consistent with pneumonia or asymmetric pulmonary vascular congestion CXR 05/09: no pneumothorax, but small subcutaneous emphysema in left chest, patchy opacity in right lower lung consistent with pneumonia or pulmonary vascular congestion. Continue antibiotic therapy as per ID recs -Hold Cefepime 2g IV daily 05/14 -Repeat blood cultures (05/07) pending , with 09/04 positive; possible contaminant -Sputum cx 05/07 reveals Serratia marascens susceptible to cefepime and levo -Duonebs treatments q6h Antibiotic History -Discontinued Cefepime 2g IV daily (04/30 - d/c 05/04 ) -Discontinued Vancomycin IV (04/30 - d/c 05/04 ) -Discontinued Flagyl 500mg q8h (04/29 - 05/13) -Discontinued Levaquin IV 750 mg (05/04-05/13) HCAP (3) Fluid overload ICD Codes: E87.70 - Fluid overload, unspecified Status: Acute Plan: Alteration Tailor Apprentice noted fluid overload and has been diuresing; pt's wt on 04/21 51.9 kg -->83.4kg on 05/07 --> 59.8 kg on 05/16 -Lasix IV bid -Metolazone and Bumex d/c'd will just give maintenance fluids. her right side is likely edematous as she has not moved at all. can consider elevation if desired. (4) Pneumothorax ICD Codes: J93.9 - Pneumothorax, unspecified Status: Resolved Plan: Impression: Noticed on 05/06 CT abdomen/pelvis- large left pneumothorax, bilateral lower lobe consolidation and bilateral moderate-sized pleural effusions. S/P chest tube placement. Chest tube to waterseal for the last few days. Chest tube output 50 mL or less for 4 days. -Chest tube pulled on 05/12/17 -Follow up chest x-ray today -Chest tube pulled 05/13--resolved (5) Type 2 diabetes mellitus ICD Codes: E11.9 - Type 2 diabetes mellitus without complications Status: Chronic Plan: Admitted for DKA which has now resolved. Hemoglobin A1C is 12.9. Diabetes Type I is uncontrolled. -Continue Levemir 10 units BID due to hypoglycemia at higher dose -Medium dose insulin sliding scale with goal blood glucose between 140 and 180 -Glucerna for PEG tube feedings @ 45 ml/hr as per GI recs (6) Atrial fibrillation ICD Codes: I48.91 - Unspecified atrial fibrillation Status: Acute Plan: Hx of intermittent Afib. Resolved with administration of Lopressor. -Continue to monitor -Lopressor PRN (7) Hip fracture ICD Codes: S72.009A - Fracture of unspecified part of neck of unspecified femur , initial encounter for closed fracture Status: Acute Plan: S/P left hip reduction and intramedullary nail fixation on 04-21-17 -Consulted orthopedics-appreciate recs * WBAT * Daily dressing changes -Calcium/Vitamin D -Fluids as above -Tylenol, morphine PRN pain (8) Hypertension ICD Codes: I10 - Essential (primary) hypertension Status: Acute Plan: IV hydration. BPs wnl overnight -Antihypertensives to keep SBP<180 -Lasix or Bumex for diuresis as required (9) On mechanically assisted ventilation ICD Codes: Z99.11 - Dependence on respirator [ventilator] status Plan: Impression: s/p trach procedure 05/15. CPAP trials; 35% FiO2 -Continue weaning trials as tolerated (10) Elevated LFTs ICD Codes: R79.89 - Other specified abnormal findings of blood chemistry Plan: Impression: LFT elevations with alkaline phosphatase gradually rising from 351-1931 and AST rising from 50s to 217. Liver/biliary etiology expected as GGT 787. Gallbladder ultrasound obtained by diesel service apprentice 05/08; focally unremarkable in appearance of gallbladder -Incrementally resolving since chest tube placement -Alk Phos again rising to 1020 w/normal AST/ALT on 05/18 -Monitor at this time (11) Sacral decubitus ulcer ICD Codes: L89.159 - Pressure ulcer of sacral region, unspecified stage Plan: Patient with beginnings of a sacral decubitus ulcer. -Wound care consult ordered and appreciated (12) Abdominal distension ICD Codes: R14.0 - Abdominal distension (gaseous) Status: Acute Plan: Impression: Abdominal distension much improved today; first noted on exam 05/05 with serial KUBs neg for etiology. In association with transaminase elevation and Alk P >1k and GGT elevation. s/p large BM 05/07 per nursing staff 05/06 - CT abdomen/pelvis- large left pneumothorax, bilateral lower lobe consolidation and bilateral moderate-sized pleural effusions, significant soft tissue thickening of right lateral chest wall and left gluteus. Mild ascites 05/09 - abdominal distension unchanged; however, LFTs resolving following chest tube -Continue to monitor at this time -Continue to follow LFTs 05/11 - abdominal distention seems to be related to diffuse edema, trial of Lasix 20 mg IV twice a day, which was increased to 40 mg IV twice a day 05/12 - much less abdominal distention today. Significant improvement with significant net diuresis of almost 4 L. 05/14 - continues to improve 05/16 - no interval change 05/18 - improved (13) Sepsis ICD Codes: A41.9 - Sepsis, unspecified organism Status: Resolved Plan: Impression: Pt met SIRS criteria with tachycardia, leukocytosis Leukocytosis resolved Cultures: 05/07 Blood cultures and sputum cultures negative to date 04/30 Sputum culture with staph, Serratia 04/29 blood culture with staph -See antibiotics as below -Culture results as below -Monitor vitals (14) Fluids, Electrolytes, and Nutrition Status: Acute Plan: Fluids: IVF as above Electrolyte: on electrolyte protocol Nutrition: Glucerna tube feeds DVT ppx: SCDs/lovenox 40 mg daily GI ppx: protonix Colace, fleet enema mineral oil (Chuy Camacho MD R1) Problem Qualifiers (1) Fluid overload: Qualified Codes: E87.79 - Other fluid overload (2) Pneumothorax: (3) Type 2 diabetes mellitus: Qualified Codes: E11.9 - Type 2 diabetes mellitus without complications (4) Atrial fibrillation: Qualified Codes: I48.0 - Paroxysmal atrial fibrillation (5) Hip fracture: (6) Hypertension: Qualified Codes: I10 - Essential (primary) hypertension (7) Sacral decubitus ulcer: Qualified Codes: L89.151 - Pressure ulcer of sacral region, stage 1 (8) Sepsis: Qualified Codes: A41.9 - Sepsis, unspecified organism Chuy Camacho MD R1 May 18, 2017 09:51 Dawn Guajardo MD May 18, 2017 18:22
[2017-05-19] VITALS (18 sets, daily range): BP systolic 106–129; BP diastolic 55–66; PULSE 74–104; RESP 14–32; TEMP 98.3–99.8; O2SAT 93–100
[2017-05-19] MEDS: SODIUM CHLOR 0.45% 1000 ML INJ 1,000 ML IV SCH (03:45)
[2017-05-19] MEDS ORDERED: DEXTROSE 50% IN WATER 50 ML VIAL(D50) IV PUSH PRN (08:00)
[2017-05-19] MEDS: INSULIN NovoLIN REGULAR SUPPLEMENTAL SCALE SQ SCH ×4 (08:00→20:00)
--- NOTE | 2017-05-19 08:15 | HHI.CCPN ---
Subjective Remarks/Hospital Course 04/24: 76-year-old female with a medical history significant for prior stroke, diabetes mellitus who was admitted with DKA and a hip fracture for which she underwent ORIF on 04/21. Patient developed altered mental status and was last noted to be okay around 5:30 AM. Subsequently there was a change in her mental status and she was noted to not be moving her right side for which stroke alert was called. Head CT showed large left MCA territory ischemic infarct with edema. Patient was transferred to the ICU by family medicine service in the critical care consult was requested. I evaluated the patient following arrival to the ICU. At that time she was laying in bed with her eyes open however not following commands and had a dense right hemiplegia. Patient was also evaluated by Dr. Malave from neurology. I further discussed current event with patient's daughter following her arrival to the ICU. Per the daughter patient has been living with her since her stroke in 2014 and does ambulate however has been having problems with memory and incontinence as well as gait difficulties. She does not feel patient would want intubation or tracheostomy or PEG tube. 04/25: Patient remains encephalopathic, awake though not following commands consistently. Dense right hemiplegia persists. Appears to be awake enough to protect airway currently. Patient's daughter rescinded DNR and made a full code last evening. 04/26: Remains encephalopathic, not following commands. On Dobbhoff for tube feeds at 30 cc per hour. Had urinary retention and drained 2 L of urine after placing Moser catheter today. CT head done this morning with large left MCA territory infarct with left to right midline shift and significant cerebral edema. Hyperglycemia noted. Patient given mannitol earlier for increasing cerebral edema. 04/27: Remains encephalopathic, not following commands. On Dobbhoff tube feeds at 30 cc per hour. When into A. fib with RVR last night which responded with Lopressor 5 mg IV 1 dose. 04/28: Remains encephalopathic, arousable, not following commands. Moves left upper extremity spontaneously. Tolerating Dobbhoff tube feeds. Remains on nasal cannula. 04/29: Encephalopathic, eyes be arousable, moves left upper extremity spontaneously and occasionally opens eyes. Dense right hemiplegia and aphasia persists. On nasal cannula. Dobbhoff tube feeds being advanced. Patient was transfused 1 unit PRBCs yesterday. Urine culture with yeast from yesterday for which fluconazole being started. Had brief run of A. fib with RVR which improved with Lopressor IV, currently in sinus rhythm. 04/30: Worsening hypoxemic respiratory failure, currently on partial nonrebreather. Remains lethargic. WBC count increased from 14.6 today 20.7. Chest x-ray shows bilateral worsening infiltrates and small pleural effusions. Sodium 154, weight up by 8 KG. Albumin 1 mg Bumex 1. Also one dose of albumin. Remains in sinus tachycardia. Tmax 101.3 05/01: Patient was intubated yesterday for lack of airway protection, and severe hypoxemic respiratory failure from aspiration pneumonia involving multiple lobes. Patient is on the vent lethargic, no spontaneous eye opening. Chest x- ray remains unchanged. Remains intermittently febrile Tmax 101.3. WBC count improving 05/02: Remains critically ill with no improvement in mental status. Spiking fever of 101.7. Blood culture and sputum culture with staph aureus sputum also growing GNR, WBC count 22,000 now indicating worsening sepsis. Daughter still requesting aggressive care. Palliative care is following 05/03: S/P large area dominant hemisphere CVA. No neurological improvement. Now with pneumonia (infiltrate, fever, leukocytosis) and appropriate abx coverage. She will have a hard time surviving the hip fx, CVA, and pneumonia. Palliative Care needs to be a mainstay of our plan. 05/04: No improvement in neuro status. Sputum C&S allows us to narrow abx coverage to levaquin alone. Lungs remain quite congested. Enteral nutrition tolerated. 05/05: No improvement in neuro status. Moves left arm spontaneously. Flaccid right side. Unresponsive. Persistent mild hypoglycemia - will cut Levemir 50%. Abdomen more distended, check KUB. 05/06: CT head with massive left MCA infarction and > 1 cm shift in right handed woman. She opens eyes, does not track. 05/07: Patient open eyes. Attempts to respond. Guinean speaking. Tolerating tube feeds. Positive bowel movement. Volume overloaded. 05/08: Tmax 99.4. Potassium being replaced. Ultrasound gallbladder currently pending. Transaminases are trending downward. Gently diurese. 05/09: Alk phos decreasing. Remains with good urine output. Neurological status not improving. 05/10: Fixed neuro deficit unchanged. Profound CVA. 05/11: Appears to track with eyes today. No improvement in motor function. Remains very edematous, diuretics doubled. 05/12: Continued thick secretions. Afebrile, leukocytosis resolved. 05/13: CT head with completed left MCA stroke, persistent edema and 5 mm shift away. Does not last long on SBTs - major decision now is trach/PEG. 05/14: Daughter has decided to proceed with trach and PEG. I have been pessimistic with her about chances for a meaningful recovery. 05/15: Plan for trach today. No change in neuro status. Still ventilator dependent. 05/16: Trach completed. Await PEG and disposition. 05/17: PEG placed 05/16. Start TFs today after nutrition consult. Work to place patient. 05/18: No improvement. Does open eyes, no focus or tracking. Completed large dominant (left) hemisphere CVA in right handed woman with severe deficit. Medicaid pending status, [employer] is following. Subjective 05/19: no improvements in neuro exam. ready for LTAC. will d/c moser and rectal tubes. Objective Vital Signs Date Time Temp Pulse Resp B/P (MAP) Pulse Ox O2 Delivery O2 Flow Rate FiO2 05/19/17 07:29 94 35 05/19/17 06:00 104 05/19/17 04:00 98.4 14 116/65 (82) 05/18/17 19:00 Mechanical Ventilator 15.00 Intake and Output 05/19/17 05/19/17 05/20/17 08:00 16:00 00:00 Intake Total 1001 ml Output Total 600 ml Balance 401 ml Result Diagram: 05/18/17 0342 05/18/17 0342 Imaging Last Impressions Chest X-Ray 05/07/17 0400 Signed Impressions: Service Date/Time: Sunday, May 07, 2017 04:38 - CONCLUSION: 1. Stable Low-lying ETT with tip approximately 1 cm above the valerie. 2. Mild interval progression of bilateral airspace consolidation exaggerated by patient rotation. 3. Increased small left pleural effusion. Alejo De La Vega MD Abdomen/Pelvis CT 05/07/17 0000 Signed Impressions: Service Date/Time: Sunday, May 07, 2017 13:23 - CONCLUSION: 1. Large left pneumothorax. 2. Bilateral lower lobe consolidation and bilateral moderate size pleural effusions. 3. Significant soft tissue thickening of the right lateral chest wall and left gluteus muscle. 4. Mild ascites. The findings were called to Dr. Carney. Deangelo Zamora MD Head CT 05/06/17 0000 Signed Impressions: Service Date/Time: Saturday, May 06, 2017 04:18 - CONCLUSION: 1. Evolving large left-sided MCA territory infarct with minimally improved [id number] subfalcine shift. 2. No intercurrent hemorrhage or other acute abnormality. Alejo De La Vega MD Abdomen X-Ray 05/06/17 0000 Signed Impressions: Service Date/Time: Saturday, May 06, 2017 17:42 - CONCLUSION: Dobbhoff feeding tube tip near the gastroduodenal junction. Obdulio Simms MD Hip and Pelvis X-Ray 05/05/17 0000 Signed Impressions: Service Date/Time: Friday, May 05, 2017 10:59 - CONCLUSION: Left proximal femur trochanteric/subtrochanteric fracture lucency visualized. Postoperative changes. Choco Mustafa MD Chest CT 04/30/17 0000 Signed Impressions: Service Date/Time: Sunday, April 30, 2017 09:20 - CONCLUSION: 1. Bilateral pulmonary infiltrates more pronounced within the lower lobes with tiny bilateral pleural effusions. Material seen filling the lower lobe bronchi bilaterally either related to purulent material or perhaps mucus plugging. Deangelo Wren Jr., MD Carotid Artery Ultrasound 04/24/17 0000 Signed Impressions: Service Date/Time: April 09:45 - CONCLUSION: 1. No hemodynamically significant carotid artery stenosis. Arnie Middleton MD Hip X-Ray 04/21/17 0000 Signed Impressions: Service Date/Time: Friday, April 21, 2017 11:36 - CONCLUSION: Fluoroscopic images during placement of intramedullary siomara left femur. Benja Ramsey MD Objective Remarks Gen: 76-year-old female HEENT: nc. at. perrl. mucous membranes moist. Neck: trached. Chest/pulmonary: unlabored. on ventilator. Cardiovascular: RRR. GI/abdomen: Distended. Nontender. Extremities: Warm bilaterally, anasarca 2+ upper and 2+ lower extremity edema. Incision sites over left hip, thigh ORIF site clean dry and intact. Neuro: Intubated, on no sedation. Has eye opening and grimaces spontaneously. Dense right hemiplegia noted. Withdraws left upper extremity, Withdraws LLE. No change. Pupils 2 mm, react. Date of Insertion: May 08, 2017 (changing it today) A/P Assessment and Plan Neuro/Psych: Left MCA CVA - 12 mm of [id number] subfalcine herniation - right-sided hemiplegia Acute encephalopathy History CVA Follow neuro status closely. Continue Aspirin 325 mg by mouth daily Patient was not a candidate for thrombolysis per discussion with neurology and radiology. Repeat head CT 05/05 showed slight improvement in the midline shift and mass effect Neurosurgery consulted 04/30- Dr. López, recommended conservative management Neurology following - Dr. Malave d/c morphine. Cardiovascular: Hypertension IV fluids currently on hold due to edema As needed Antihypertensives to keep systolic blood pressure less than to 180 mmHg Echocardiogram 04/24 - EF 50 to 55%. Mild concentric LVH. Pulmonary: Acute hypoxic respiratory failure - aspiration possible HCAP Large left pneumothorax status post #10 Yoruba chest tube 05/07 Ventilator bundle Ipratropium/albuterol aerosols every 6 hours with albuterol aerosols every 2 hours. Dyspnea Intubated on 04/30/17 for worsening hypoxemic respiratory failure, aspiration pneumonia Chest x-ray shows 05/08 revealed increasing infiltrate/small pleural effusion left side. Right-sided chest tube in place. CT of the chest 04/30/17 showed severe bibasilar consolidation, and evidence of aspiration Chest tube d/c'd 05/12 Daily SBTs, remains weak on trials 05/18 GI/liver: Elevated transaminases Hypoalbuminemia Moderate to severe protein calorie malnutrition Dobbhoff for tube feedings and medications. Continue tube feeding with Glucerna 1.5 goal 45 cc an hour\ Lansoprazole 30 mg daily for GI regimen Docusate sodium 100 twice a day, Senokot 8.6 twice a day, polyethylene glycol 17 grams twice a day and lactulose 30 cc 4 times a day Evaluate CT abdomen/pelvis 05/07 - mild ascites. Large left hemothorax. Right greater than left pleural effusion. Avoid hepatotoxic drugs LFTs improving Alk Phos elevated again 05/18. d/c rectal tube. d/c bowel regimen. add fiber to diet. Endocrine: Diabetes mellitus Detemir 8 units subcutaneous daily. SSI increased to high dose q4h. Holding glimepiride 4 mill grams by mouth daily /Renal/FEN: Hypopotassemia Strict intake output, monitor and replete electrolytes, follow BUN/creatinine. Moser catheter placed for urinary retention on 04/26. Will remove moser catheter due to no indication and start q6h straight cath. Heme: Chronic Rivaroxaban use Leukocytosis Normocytic anemia Thrombocytosis Follow CBC and coags. On subcutaneous enoxaparin Hemoglobin currently stable. No indications for transfusion of blood proximally at this time ID: MSSA bacteremia Serratia/staph aureus pneumonia C glabrata UTI Pertinent cultures Urine culture 04/26/17 sofie glabrata Blood culture 04/29/17 1 out of 4 bottles staph aureus Sputum culture 04/30/17 staph aureus and Serratia. Blood cultures 2, sputum 1 and urine 05/08 pending -> Serratia, treated. off abx. CBC in the AM. MSK: Left Intertroch Hip Fx s/p IMN Vitamin D deficiency Prophylaxis: SCDs. Enoxaparin 40 mg sq daily-cleared by Dr. Malave GI - lansoprazole Overall impression: Devastating CVA. No improvement. poor prognosis. We have been unable to wean the ventilator; she repeatedly fails SBTs. PEG placed. No change in neuro status. Medicaid pending for placement. Anuj Heaton MD May 19, 2017 08:15
[2017-05-19] MEDS: SODIUM CHLORIDE 0.9% FLUSH 5 ML FLUSH IV FLUSH SCH ×2 (09:00→20:00)
[2017-05-19] MEDS: BENEPROTEIN POWDER 1 PACK G-TUBE SCH ×3 (09:00→18:00)
--- NOTE | 2017-05-19 09:12 | HHI.NSPN ---
(Rene Reed) History Chief Complaint: Unable to obtain due to the patient's clinical condition. 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 05/03/2017: Remains intubated. Minimal eye opening to sternal rub. Grasps left hand good strength to command. 05/06: Patient continues to be intubated and off any sedation. She had a repeat CT brain this morning which demonstrated an evolving large left-sided MCA territory infarct with minimal improvement in the [id number] subfalcine shift. 05/07/17: Remains intubated. Awake and relatively alert. Minimally disconjugate left gaze and response to voice. Moves left upper and lower extremity well to command. CPAP trials 05/08: Patient still is intubated and is on pressure controlled ventilation. She is not on any sedation and arouses to noxious stimulation. The patient was noted to have a left-sided pneumothorax on her chest x-ray yesterday and the [employer] Operations [employer] Technician placed a tube thoracostomy. 05/09: The patient is awake and fairly alert when seen. She does interact readily. The left-sided tube thoracostomy remains in place. 05/10: The patient remains intubated and mechanically ventilated. Initially the patient had her eyes closed but did follow commands. A few minutes later she was noted to have her eyes open without any stimulation. 05/11: This morning the patient is noted to have her eyes open and does appear to look about the room. She does follow commands. She remains intubated and mechanically ventilated. 05/13: When seen the patient is intubated without any sedation. She does not open her eyes to any stimulation and it is questionable whether she did follow the command to squeeze with the left hand. The left-sided tube thoracostomy has been removed since the patient was last seen. 05/15: The patient was trached earlier today. She briefly had her eyes open in response to her daughter's voice but quickly drifts back off to sleep. 05/19: This morning the patient is awake. She remains trached and mechanically ventilated. She is noted to spontaneously move the left hand and left foot. Since last seen the patient has had a PEG placed. (Rene Reed) System Review Comments Unable to obtain due to the patient's clinical condition. (Rene Reed) Exam Results 05/17/17 05/17/17 05/18/17 05/18/17 05/19/17 05/19/17 05:59 17:59 05:59 17:59 05:59 17:59 Intake Total 120 ml 120 ml 465 ml 1509 ml 1243 ml 1001 ml Output Total 1050 ml 400 ml 700 ml 900 ml 1000 ml 600 ml Balance -930 ml -280 ml -235 ml 609 ml 243 ml 401 ml Intake Oral 0 ml 0 ml IV Total 0 ml 375 ml 762 ml 833 ml 310 ml Tube Feeding 0 ml 65 ml 547 ml 360 ml 491 ml Tube Irrigant 25 ml 50 ml Other 120 ml 120 ml 200 ml 200 ml Output Urine Total 1000 ml 300 ml 700 ml 900 ml 900 ml 600 ml Stool Total 50 ml 100 ml 100 ml Vital Signs Date Time Temp Pulse Resp B/P (MAP) Pulse Ox O2 Delivery O2 Flow Rate FiO2 05/19/17 08:00 77 05/19/17 07:29 94 35 05/19/17 07:00 96 Mechanical Ventilator 14.00 35 05/19/17 06:00 104 05/19/17 04:03 93 35 05/19/17 04:00 75 05/19/17 04:00 35 05/19/17 04:00 98.4 75 14 116/65 (82) 93 05/19/17 02:00 78 05/19/17 00:43 97 35 05/19/17 00:00 76 05/19/17 00:00 35 05/19/17 00:00 98.5 83 14 125/66 (85) 100 05/18/17 22:00 78 05/18/17 21:23 97 35 05/18/17 20:00 83 05/18/17 20:00 35 05/18/17 20:00 98.5 83 14 125/66 (85) 100 05/18/17 19:00 99 Mechanical Ventilator 15.00 35 05/18/17 18:00 71 05/18/17 17:28 94 35 05/18/17 16:21 97 35 05/18/17 16:00 98.2 78 27 139/68 (91) 97 05/18/17 16:00 35 05/18/17 16:00 76 05/18/17 14:00 80 05/18/17 12:00 35 05/18/17 12:00 80 05/18/17 12:00 98.8 82 27 123/70 (87) 94 05/18/17 11:58 96 35 05/18/17 11:58 35 05/18/17 10:00 86 05/18/17 08:00 98.7 110 24 135/73 (93) 98 05/18/17 08:00 110 05/18/17 08:00 35 05/18/17 07:36 97 35 05/18/17 07:00 96 Mechanical Ventilator 15.00 35 05/18/17 06:00 87 05/18/17 04:02 97 35 05/18/17 04:00 93 05/18/17 04:00 35 05/18/17 04:00 98.8 93 14 179/80 (113) 93 05/18/17 02:00 91 05/18/17 01:02 97 35 05/18/17 00:00 98.5 72 14 133/66 (88) 100 05/18/17 00:00 35 05/18/17 00:00 72 05/17/17 22:00 73 05/17/17 20:38 99 35 05/17/17 20:00 69 05/17/17 20:00 35 05/17/17 20:00 99.0 69 16 114/55 (74) 99 05/17/17 19:00 98 Mechanical Ventilator 35 05/17/17 18:00 70 05/17/17 17:59 100 35 05/17/17 16:00 70 05/17/17 16:00 98.3 69 21 131/63 (85) 98 05/17/17 16:00 45 05/17/17 14:00 68 05/17/17 13:25 100 45 05/17/17 12:00 98.2 70 19 128/64 (85) 99 05/17/17 12:00 35 05/17/17 12:00 69 05/17/17 10:01 100 35 05/17/17 10:00 75 9/16/17 08:00 35 05/17/17 08:00 75 05/17/17 08:00 98.1 65 24 129/65 (86) 97 05/17/17 07:00 100 Mechanical Ventilator 15.00 35 05/17/17 06:00 77 05/17/17 04:14 99 35 05/17/17 04:00 96.9 82 14 163/78 (106) 100 05/17/17 04:00 82 05/17/17 04:00 45 05/17/17 02:00 78 05/17/17 00:40 100 40 05/17/17 00:00 45 05/17/17 00:00 75 05/17/17 00:00 97.8 75 20 125/68 (87) 100 05/16/17 22:00 82 05/16/17 20:25 99 40 05/16/17 20:00 98.9 82 14 140/63 (88) 100 05/16/17 20:00 82 05/16/17 20:00 45 05/16/17 19:00 100 Mechanical Ventilator 40 05/16/17 18:00 95 05/16/17 17:09 99 45 05/16/17 16:00 45 05/16/17 16:00 98.2 78 14 126/65 (85) 100 05/16/17 16:00 78 05/16/17 14:00 82 05/16/17 13:15 96 45 05/16/17 12:00 98.0 77 14 171/75 (107) 100 05/16/17 12:00 45 05/16/17 12:00 77 05/16/17 10:00 76 05/16/17 09:17 100 45 (Rene Reed) Physical Examination GENERAL: Awake & alert, trached, w/o any sedation. No apparent distress. SKIN: Warm & dry w/generalised dependent edema, w/o any evident rashes, ulcerations or lesions. HEENT: Normocephalic, atraumatic. PERRLA. NECK: No JVD, trachea midline. Tracheostomy. CARDIOVASCULAR: S1S2 w/RRR w/o M/G/R, radial 2+ & pedal pulses 1+ bilaterally, cap refill < 2 sec, generalised dependent edema. Monitor appears to be sinus rhythm w/o any ectopy noted. RESPIRATORY: Coarse bilaterally, equal excursion, nonlaboured, trached and on pressure controlled ventilation. GASTROINTESTINAL: Abdomen soft, appears nontender, bowel sounds not appreciated. PEG tube w/enteral feeds. MUSCULOSKELETAL: No evident deformity or clubbing. NEUROLOGICAL: Trached w/o any sedation. GCS 11T (E4 V1T M6). Spontaneous eye opening. Uncertain if tracking. Spontaneous movement of left hand & left foot noted. Weak garden equipment mechanic w/left hand to command. No motor response to RUE & BLE to either command or localised noxious stimulation. (Rene Reed) Lab, Micro, Other Results Laboratory Tests Test 05/17/17 06:25 05/18/17 03:42 05/19/17 08:10 White Blood Count 14.1 TH/MM3 13.6 TH/MM3 Red Blood Count 3.06 MIL/MM3 3.20 MIL/MM3 Hemoglobin 9.5 GM/DL 9.9 GM/DL Hematocrit 29.5 % 31.0 % Mean Corpuscular Volume 96.3 FL 96.9 FL Mean Corpuscular Hemoglobin 31.2 PG 30.9 PG Mean Corpuscular Hemoglobin Concent 32.4 % 31.9 % Red Cell Distribution Width 17.9 % 18.0 % Platelet Count 460 TH/MM3 494 TH/MM3 Mean Platelet Volume 8.7 FL 7.7 FL Hematology Comments Blood Urea Nitrogen 39 MG/DL 34 MG/DL Creatinine 0.35 MG/DL 0.32 MG/DL Random Glucose 208 MG/DL 88 MG/DL Total Protein 5.1 GM/DL 5.8 GM/DL Calcium Level 7.3 MG/DL 7.6 MG/DL Sodium Level 144 MEQ/L 143 MEQ/L Potassium Level 4.0 MEQ/L 3.3 MEQ/L 4.0 MEQ/L Chloride Level 107 MEQ/L 105 MEQ/L Carbon Dioxide Level 28.2 MEQ/L 30.2 MEQ/L Anion Gap 9 MEQ/L 8 MEQ/L Estimat Glomerular Filtration Rate 182 ML/MIN 202 ML/MIN Protein Corrected Calcium 8.4 MG/DL Neutrophils (%) (Auto) 83.1 % Lymphocytes (%) (Auto) 10.1 % Monocytes (%) (Auto) 4.0 % Eosinophils (%) (Auto) 1.6 % Basophils (%) (Auto) 1.2 % Neutrophils # (Auto) 11.3 TH/MM3 Lymphocytes # (Auto) 1.4 TH/MM3 Monocytes # (Auto) 0.5 TH/MM3 Eosinophils # (Auto) 0.2 TH/MM3 Basophils # (Auto) 0.2 TH/MM3 CBC Comment DIFF FINAL Differential Comment Albumin 1.4 GM/DL Alkaline Phosphatase 1020 U/L Aspartate Amino Transf (AST/SGOT) 67 U/L Alanine Aminotransferase (ALT/SGPT) 27 U/L Total Bilirubin 0.3 MG/DL (Rene Reed) Medical Decision Making Impression and Plan Impression: 1. Large left MCA CVA 2. Persistent right hemiplegia 3. Aspiration pneumonia 4. Hypoxic respiratory failure Sodium 147 yesterday morning. Poor neurological response, only moves left hand to command and the left hand & left foot spontaneously, spontaneous eye opening. Plan: Primary management per [employer] Technician. Frequent neuro checks. Continue ventilatory support. Okay for Lovenox from neurosurgical standpoint. Will follow intermittently while in the hospital. (Rene Reed) Attending Statement The exam, history, and the medical decision-making described in the above note were completed with the assistance of the mid-level provider. I reviewed and agree with the findings presented. I attest that I had a [id number] encounter with the patient on the same day, and personally performed and documented my assessment and findings in the medical record. Neurologic exam continues to fluctuate but generally improve Labs satisfactory Continue sodium within normal limits Follow-up CT scan depending on clinical course (Parker López MD) Rene Reed May 19, 2017 09:12 Parker López MD Jun 09, 2017 07:19
[2017-05-19] MEDS: CALCIUM/VITAMIN D 250 MG/125 U TAB PO SCH ×3 (09:16→18:00)
[2017-05-19] MEDS: ASPIRIN 325 MG TAB DOBHOFF SCH (09:16)
[2017-05-19] MEDS: CHOLECALCIFEROL (VIT D3) 5000 UNIT CAP PO SCH (09:16)
[2017-05-19] MEDS: FUROSEMIDE 40 MG/5 ML UNIT DOSE CUP NG SCH (09:16)
[2017-05-19] MEDS: DOCUSATE SODIUM 100 MG/10 ML UDC PO SCH ×2 (09:16→20:00)
[2017-05-19] MEDS: INSULIN DETEMIR 100 UNITS/ML VIAL SQ SCH (09:18)
[2017-05-19] MEDS: LANSOPRAZOLE SOLUTAB 30 MG TAB NG SCH (09:53)
--- NOTE | 2017-05-19 13:57 | HHI.FPPN ---
Subjective Remarks Ms Hein had no acute events overnight. The relay assembler plans to discontinue her Moser today. Continues to fail daily CPAP trials. Opens eyes and spontaneously moves left upper and lower extremities and continued right hemiplegia. (Chuy Camacho MD R1) Objective Vitals Vital Signs Date Time Temp Pulse Resp B/P (MAP) Pulse Ox O2 Delivery O2 Flow Rate FiO2 05/19/17 12:05 103 05/19/17 12:00 99.4 103 26 115/55 (75) 98 05/19/17 12:00 35 05/19/17 11:56 97 35 05/19/17 10:00 86 05/19/17 09:50 35 05/19/17 08:00 77 05/19/17 08:00 35 05/19/17 08:00 98.3 82 32 121/61 (81) 95 05/19/17 07:29 94 35 05/19/17 07:00 96 Mechanical Ventilator 14.00 35 05/19/17 06:00 104 05/19/17 04:03 93 35 05/19/17 04:00 75 05/19/17 04:00 35 05/19/17 04:00 98.4 75 14 116/65 (82) 93 05/19/17 02:00 78 05/19/17 00:43 97 35 05/19/17 00:00 76 05/19/17 00:00 35 05/19/17 00:00 98.5 83 14 125/66 (85) 100 05/18/17 22:00 78 05/18/17 21:23 97 35 05/18/17 20:00 83 05/18/17 20:00 35 05/18/17 20:00 98.5 83 14 125/66 (85) 100 05/18/17 19:00 99 Mechanical Ventilator 15.00 35 05/18/17 18:00 71 05/18/17 17:28 94 35 05/18/17 16:21 97 35 05/18/17 16:00 98.2 78 27 139/68 (91) 97 05/18/17 16:00 35 05/18/17 16:00 76 05/18/17 14:00 80 I/O 05/18/17 05/18/17 05/18/17 05/19/17 05/19/17 05/19/17 07:00 15:00 23:00 07:00 15:00 23:00 Intake Total 1309 ml 200 ml 1243 ml 1001 ml Output Total 900 ml 1000 ml 600 ml Balance 409 ml 200 ml 243 ml 401 ml Intake Oral 0 ml IV Total 562 ml 200 ml 833 ml 310 ml Tube Feeding 547 ml 360 ml 491 ml Tube Irrigant 50 ml Other 200 ml 200 ml Output Urine Total 900 ml 900 ml 600 ml Stool Total 100 ml (Chuy Camacho MD R1) Result Diagram: 05/18/17 0342 05/19/17 0810 Objective Remarks CONSTITUTIONAL/GEN: Nonverbal, lying in bed with tracheostomy tube in place and glucerna 1.5 tube feed @ 45ml/hr. Patient's eyes are open today; she can move head, open and close left hand spontaneously, but does not appear to follow simple commands. HEAD: Normocephalic. Atraumatic. Right side facial droop. LUNGS: Tracheostomy on the vent @ 98% sp O2 FiO2 35. Coarse breath sounds bilaterally but moving air well CARDIOVASCULAR: Regular rate and regular rhythm. Lower extremity bilateral pitting edema to ankles. Right hand puffy, but improving. Right arm with some skin breakdown. Left arm much improved today without any pitting edema. GI/ABD: 2+anasarca, normal BS w/o guarding or rebound. 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 Moves left UE and LE spontaneously. : yellow urine draining into moser bag. MUSC: SCDs on bilateral lower extremities. Pedal pulses weak. SKIN: Erythematous sacral wound Procedures ORIF 04/21/17 Intubation 04/30/17 (Chuy Camacho MD R1) Urinary Catheter: Yes Moser insert reason: Obstruction/Retention Date of Insertion: May 08, 2017 (changing it today) (Chuy Camacho MD R1) A/P Assessment and Plan 76 y/o female with HTN, DM, CVA admitted for DKA and hip fracture. Now with massive left MCA stroke, right hemiplegia and midline shift resolving. Neuro and relay assembler consulted. Working with palliative care and family for goals of care. 05/07 CT abdomen/pelvis w/large pneumothorax on left side decompressed with chest tube. Chest tube pulled 05/12. Tracheostomy placed 05/15. PEG tube 05/16. -Overall poor prognosis, pursuing goals of care discussion with daughter (HCPOA) , but at this time daughter wishes continued intervention -05/09 - extensive discussion with daughter today indicates no willingness to pursue comfort measures only. Daughter continues to ask for aggressive management of her mother's condition; will continue to engage in this discussion -05/11--CXR w/bilateral pleural effusions vs pulmonary edema--diuresis ordered -05/14 -- little interval change. Wt down from 70 kg on 05/10 to 59kg today. CPAP trials progressing. Family meeting with daughter yielded no change in code status or goals of care. Plan is to re-join with discussing trach and PEG feeding tube with daughter in 2-3 days time. -05/15 -- Daughter consented to tracheostomy and procedure was performed today. CPAP trials still progressing. No other changes. -05/16 -- Tracheostomy in place, pt with eyes open today responding to simple commands. GI consulted with PEG tube planned for today. -05/17 - starting PEG tube feeds -05/18 - Glucerna 1.5 feed through PEG tube at 45ml/hr; changing moser out today (10 days); opens eyes but cannot track; does not respond to commands; still on Ancef IV for PEG and trach procedures. - 05/19 - no interval change in status. Durability Engineer to remove moser and rectal tube today. Pursuing movement to [facility]. Discharge Planning Pending stroke progression and discussion for goals of care she has no Insurance. Medicaid was applied for which takes months and is often not approved in cases like this. she cannot go to a [facility] facility nor a SNF without Insurance. Case management explained that to her daughter (Chuy Camacho MD R1) Attending Attestation Patient seen and examined. Case reviewed and discussed with the resident team. Agree with plan of care as discussed with me and documented in the resident note. very sick woman with no real improvement over time. asked palliative if we in Family Medicine could be invited to the next family meeting. Ms Hein cannot participate in any PT or rehab as she is incapable. unsure if she will have to eventually go home with her daughter (Dawn Guajardo MD) Problem List: (1) Acute CVA (cerebrovascular accident) ICD Codes: I63.9 - Cerebral infarction, unspecified Status: Acute Plan: Patient found minimally responsive with neurological deficits around 0820 04/24. Stat CT of head was ordered, which showed large left MCA infarct. Diffuse edema throughout the left MCA distribution, suggest completed infarct. This was discussed and was not a candidate for intracranial intervention. CT (04/30): Reduction in midline shift to 11mm. Unchanged large left MCA infarction. CT head (05/06) shows: Evolving large left-sided MCA territory infarct with minimally improved [id number] subfalcine shift. No intercurrent hemorrhage or other acute abnormality. Echocardiogram- The left ventricular systolic function is low normal with an estimated ejection fraction in the range of 50-55%. Mild concentric left ventricular hypertrophy. Normal left ventricular size. [id number] mitral valve regurgitation. Carotid Artery US- No hemodynamically significant carotid stenosis -Consulted relay assembler, appreciate recs -Discontinue Ancef IV abx for ppx with surgical procedures 05/18 -s/p Tracheostomy 05/15 and PEG tube insertion 05/16 -IV hydration, watch for hypotension. -Keep systolic to less than 220 initially -Lactated Ringer's reduced to 75 ml/hr -Poor prognosis -Neurosurgery consulted -Recommended conservative management -Keep Na in 145-154 range -Tube feeds: Glucerna 1.5 mLs for diet via PEG tube, starting at low dose now then will start -Line Servicer consult for management and recs but will need to do maintenance fluids in the meantime until her PEG tube feeds are increased and she can change to water boluses in the PEG tube -Consulted palliative care-appreciate recs -Case discussed with daughter in-person about goals of care, limited treatment options, and poor prognosis.hope to be involved in future family discussions, can let palliative know this -Daughter continues to want aggressive care. Wishes to continue aggressive medical treatment despite prognosis -Neurology consulted-appreciate recs -Rectal ASA -Lovenox 40mg daily (2) HCAP (healthcare-associated pneumonia) ICD Codes: J18.9 - Pneumonia, unspecified organism Status: Resolved Plan: Suspect possible HCAP. Persistent leukocytosis. Possible aspiration Chest CT (04/30): Bilateral pulmonary infiltrates more pronounced within lower lobes with b/l pleural effusions. Material in lower lobe bronchi b/l, purulent or mucus plugging 04/30 Sputum culture showing staph aureus and Serratia Marcescens Legionella and strep pneumo urine tests negative CXR 05/02: Increased airspace opacity bilaterally. The pattern may represent pulmonary edema. There is likely a left pleural effusion. CXR 05/08: Stable diffuse consolidation of right warm to much lesser extent left perihilar region consistent with pneumonia or asymmetric pulmonary vascular congestion CXR 05/09: no pneumothorax, but small subcutaneous emphysema in left chest, patchy opacity in right lower lung consistent with pneumonia or pulmonary vascular congestion. Continue antibiotic therapy as per ID recs -Hold Cefepime 2g IV daily 05/14 -Repeat blood cultures (05/07) pending , with 09/04 positive; possible contaminant -Sputum cx 05/07 reveals Serratia marascens susceptible to cefepime and levo -Duonebs treatments q6h Antibiotic History -Discontinued Cefepime 2g IV daily (04/30 - d/c 05/04 ) -Discontinued Vancomycin IV (04/30 - d/c 05/04 ) -Discontinued Flagyl 500mg q8h (04/29 - 05/13) -Discontinued Levaquin IV 750 mg (05/04-05/13) HCAP (3) Fluid overload ICD Codes: E87.70 - Fluid overload, unspecified Status: Acute Plan: Durability Engineer noted fluid overload and has been diuresing; pt's wt on 04/21 51.9 kg -->83.4kg on 05/07 --> 59.8 kg on 05/16 -Lasix IV bid -Metolazone and Bumex d/c'd will just give maintenance fluids. her right side is likely edematous as she has not moved at all. can consider elevation if desired. (4) Pneumothorax ICD Codes: J93.9 - Pneumothorax, unspecified Status: Resolved Plan: Impression: Noticed on 05/06 CT abdomen/pelvis- large left pneumothorax, bilateral lower lobe consolidation and bilateral moderate-sized pleural effusions. S/P chest tube placement. Chest tube to waterseal for the last few days. Chest tube output 50 mL or less for 4 days. -Chest tube pulled on 05/12/17 -Follow up chest x-ray today -Chest tube pulled 05/13--resolved (5) Type 2 diabetes mellitus ICD Codes: E11.9 - Type 2 diabetes mellitus without complications Status: Chronic Plan: Admitted for DKA which has now resolved. Hemoglobin A1C is 12.9. Diabetes Type I is uncontrolled. -Continue Levemir 10 units BID due to hypoglycemia at higher dose -Medium dose insulin sliding scale with goal blood glucose between 140 and 180 -Glucerna for PEG tube feedings @ 45 ml/hr as per GI recs (6) Atrial fibrillation ICD Codes: I48.91 - Unspecified atrial fibrillation Status: Acute Plan: Hx of intermittent Afib. Resolved with administration of Lopressor. -Continue to monitor -Lopressor PRN (7) Hip fracture ICD Codes: S72.009A - Fracture of unspecified part of neck of unspecified femur , initial encounter for closed fracture Status: Acute Plan: S/P left hip reduction and intramedullary nail fixation on 04-21-17 -Consulted orthopedics-appreciate recs * WBAT * Daily dressing changes -Calcium/Vitamin D -Fluids as above -Tylenol, morphine PRN pain (8) Hypertension ICD Codes: I10 - Essential (primary) hypertension Status: Acute Plan: IV hydration. BPs wnl overnight -Antihypertensives to keep SBP<180 -Lasix or Bumex for diuresis as required (9) On mechanically assisted ventilation ICD Codes: Z99.11 - Dependence on respirator [ventilator] status Plan: Impression: s/p trach procedure 05/15. Continues to fail CPAP trials; 35% FiO2 -Continue weaning trials as tolerated (10) Elevated LFTs ICD Codes: R79.89 - Other specified abnormal findings of blood chemistry Plan: Impression: LFT elevations with alkaline phosphatase gradually rising from 351-1931 and AST rising from 50s to 217. Liver/biliary etiology expected as GGT 787. Gallbladder ultrasound obtained by relay assembler 05/08; focally unremarkable in appearance of gallbladder -Incrementally resolving since chest tube placement -Alk Phos again rising to 1020 w/normal AST/ALT on 05/18 -Monitor at this time (11) Sacral decubitus ulcer ICD Codes: L89.159 - Pressure ulcer of sacral region, unspecified stage Plan: Patient with beginnings of a sacral decubitus ulcer. -Wound care consult ordered and appreciated (12) Abdominal distension ICD Codes: R14.0 - Abdominal distension (gaseous) Status: Acute Plan: Impression: Abdominal distension much improved today; first noted on exam 05/05 with serial KUBs neg for etiology. In association with transaminase elevation and Alk P >1k and GGT elevation. s/p large BM 05/07 per nursing staff 05/06 - CT abdomen/pelvis- large left pneumothorax, bilateral lower lobe consolidation and bilateral moderate-sized pleural effusions, significant soft tissue thickening of right lateral chest wall and left gluteus. Mild ascites 05/09 - abdominal distension unchanged; however, LFTs resolving following chest tube -Continue to monitor at this time -Continue to follow LFTs 05/11 - abdominal distention seems to be related to diffuse edema, trial of Lasix 20 mg IV twice a day, which was increased to 40 mg IV twice a day 05/12 - much less abdominal distention today. Significant improvement with significant net diuresis of almost 4 L. 05/14 - continues to improve 05/16 - no interval change 05/18 - improved 05/19 - no interval change (13) Sepsis ICD Codes: A41.9 - Sepsis, unspecified organism Status: Resolved Plan: Impression: Pt met SIRS criteria with tachycardia, leukocytosis Leukocytosis resolved Cultures: 05/07 Blood cultures and sputum cultures negative to date 04/30 Sputum culture with staph, Serratia 04/29 blood culture with staph -See antibiotics as below -Culture results as below -Monitor vitals (14) Fluids, Electrolytes, and Nutrition Status: Acute Plan: Fluids: IVF as above Electrolyte: on electrolyte protocol Nutrition: Glucerna tube feeds DVT ppx: SCDs/lovenox 40 mg daily GI ppx: protonix Colace, fleet enema mineral oil (Chuy Camacho MD R1) Problem Qualifiers (1) Fluid overload: Qualified Codes: E87.79 - Other fluid overload (2) Pneumothorax: (3) Type 2 diabetes mellitus: Qualified Codes: E11.9 - Type 2 diabetes mellitus without complications (4) Atrial fibrillation: Qualified Codes: I48.0 - Paroxysmal atrial fibrillation (5) Hip fracture: (6) Hypertension: Qualified Codes: I10 - Essential (primary) hypertension (7) Sacral decubitus ulcer: Qualified Codes: L89.151 - Pressure ulcer of sacral region, stage 1 (8) Sepsis: Qualified Codes: A41.9 - Sepsis, unspecified organism Chuy Camacho MD R1 May 19, 2017 13:57 Dawn Guajardo MD May 19, 2017 15:38
[2017-05-20] VITALS (18 sets, daily range): BP systolic 123–163; BP diastolic 61–78; PULSE 70–95; RESP 14–22; TEMP 97.9–98.6; O2SAT 95–100
[2017-05-20] MEDS: INSULIN NovoLIN REGULAR SUPPLEMENTAL SCALE SQ SCH ×6 (00:37→20:00)
--- NOTE | 2017-05-20 06:45 | HHI.CCPN ---
Subjective Remarks/Hospital Course 04/24: 76-year-old female with a medical history significant for prior stroke, diabetes mellitus who was admitted with DKA and a hip fracture for which she underwent ORIF on 04/21. Patient developed altered mental status and was last noted to be okay around 5:30 AM. Subsequently there was a change in her mental status and she was noted to not be moving her right side for which stroke alert was called. Head CT showed large left MCA territory ischemic infarct with edema. Patient was transferred to the ICU by family medicine service in the critical care consult was requested. I evaluated the patient following arrival to the ICU. At that time she was laying in bed with her eyes open however not following commands and had a dense right hemiplegia. Patient was also evaluated by Dr. Malave from neurology. I further discussed current event with patient's daughter following her arrival to the ICU. Per the daughter patient has been living with her since her stroke in 2014 and does ambulate however has been having problems with memory and incontinence as well as gait difficulties. She does not feel patient would want intubation or tracheostomy or PEG tube. 04/25: Patient remains encephalopathic, awake though not following commands consistently. Dense right hemiplegia persists. Appears to be awake enough to protect airway currently. Patient's daughter rescinded DNR and made a full code last evening. 04/26: Remains encephalopathic, not following commands. On Dobbhoff for tube feeds at 30 cc per hour. Had urinary retention and drained 2 L of urine after placing Moser catheter today. CT head done this morning with large left MCA territory infarct with left to right midline shift and significant cerebral edema. Hyperglycemia noted. Patient given mannitol earlier for increasing cerebral edema. 04/27: Remains encephalopathic, not following commands. On Dobbhoff tube feeds at 30 cc per hour. When into A. fib with RVR last night which responded with Lopressor 5 mg IV 1 dose. 04/28: Remains encephalopathic, arousable, not following commands. Moves left upper extremity spontaneously. Tolerating Dobbhoff tube feeds. Remains on nasal cannula. 04/29: Encephalopathic, eyes be arousable, moves left upper extremity spontaneously and occasionally opens eyes. Dense right hemiplegia and aphasia persists. On nasal cannula. Dobbhoff tube feeds being advanced. Patient was transfused 1 unit PRBCs yesterday. Urine culture with yeast from yesterday for which fluconazole being started. Had brief run of A. fib with RVR which improved with Lopressor IV, currently in sinus rhythm. 04/30: Worsening hypoxemic respiratory failure, currently on partial nonrebreather. Remains lethargic. WBC count increased from 14.6 today 20.7. Chest x-ray shows bilateral worsening infiltrates and small pleural effusions. Sodium 154, weight up by 8 KG. Albumin 1 mg Bumex 1. Also one dose of albumin. Remains in sinus tachycardia. Tmax 101.3 05/01: Patient was intubated yesterday for lack of airway protection, and severe hypoxemic respiratory failure from aspiration pneumonia involving multiple lobes. Patient is on the vent lethargic, no spontaneous eye opening. Chest x- ray remains unchanged. Remains intermittently febrile Tmax 101.3. WBC count improving 05/02: Remains critically ill with no improvement in mental status. Spiking fever of 101.7. Blood culture and sputum culture with staph aureus sputum also growing GNR, WBC count 22,000 now indicating worsening sepsis. Daughter still requesting aggressive care. Palliative care is following 05/03: S/P large area dominant hemisphere CVA. No neurological improvement. Now with pneumonia (infiltrate, fever, leukocytosis) and appropriate abx coverage. She will have a hard time surviving the hip fx, CVA, and pneumonia. Palliative Care needs to be a mainstay of our plan. 05/04: No improvement in neuro status. Sputum C&S allows us to narrow abx coverage to levaquin alone. Lungs remain quite congested. Enteral nutrition tolerated. 05/05: No improvement in neuro status. Moves left arm spontaneously. Flaccid right side. Unresponsive. Persistent mild hypoglycemia - will cut Levemir 50%. Abdomen more distended, check KUB. 05/06: CT head with massive left MCA infarction and > 1 cm shift in right handed woman. She opens eyes, does not track. 05/07: Patient open eyes. Attempts to respond. Citizen Of [place] speaking. Tolerating tube feeds. Positive bowel movement. Volume overloaded. 05/08: Tmax 99.4. Potassium being replaced. Ultrasound gallbladder currently pending. Transaminases are trending downward. Gently diurese. 05/09: Alk phos decreasing. Remains with good urine output. Neurological status not improving. 05/10: Fixed neuro deficit unchanged. Profound CVA. 05/11: Appears to track with eyes today. No improvement in motor function. Remains very edematous, diuretics doubled. 05/12: Continued thick secretions. Afebrile, leukocytosis resolved. 05/13: CT head with completed left MCA stroke, persistent edema and 5 mm shift away. Does not last long on SBTs - major decision now is trach/PEG. 05/14: Daughter has decided to proceed with trach and PEG. I have been pessimistic with her about chances for a meaningful recovery. 05/15: Plan for trach today. No change in neuro status. Still ventilator dependent. 05/16: Trach completed. Await PEG and disposition. 05/17: PEG placed 05/16. Start TFs today after nutrition consult. Work to place patient. 05/18: No improvement. Does open eyes, no focus or tracking. Completed large dominant (left) hemisphere CVA in right handed woman with severe deficit. Medicaid pending status, [employer] is following. 05/19: no improvements in neuro exam. ready for LTAC. will d/c moser and rectal tubes. Subjective 05/20: no changes or improvements. very difficult placement due to patient not [place] citizen. Objective Vital Signs Date Time Temp Pulse Resp B/P (MAP) Pulse Ox O2 Delivery O2 Flow Rate FiO2 05/20/17 06:00 78 05/20/17 04:53 98 35 05/20/17 04:00 98.3 18 163/78 (106) 05/19/17 19:00 Mechanical Ventilator 05/19/17 07:00 14.00 Intake and Output 05/20/17 05/20/17 05/20/17 07:59 15:59 23:59 Intake Total 512 ml Output Total 361 ml Balance 151 ml Result Diagram: 05/18/17 0342 05/19/17 0810 Imaging Last Impressions Chest X-Ray 05/07/17 0400 Signed Impressions: Service Date/Time: Sunday, May 07, 2017 04:38 - CONCLUSION: 1. Stable Low-lying ETT with tip approximately 1 cm above the valerie. 2. Mild interval progression of bilateral airspace consolidation exaggerated by patient rotation. 3. Increased small left pleural effusion. Alejo De La Vega MD Abdomen/Pelvis CT 05/07/17 0000 Signed Impressions: Service Date/Time: Sunday, May 07, 2017 13:23 - CONCLUSION: 1. Large left pneumothorax. 2. Bilateral lower lobe consolidation and bilateral moderate size pleural effusions. 3. Significant soft tissue thickening of the right lateral chest wall and left gluteus muscle. 4. Mild ascites. The findings were called to Dr. Carney. Deangelo Zamora MD Head CT 05/06/17 0000 Signed Impressions: Service Date/Time: Saturday, May 06, 2017 04:18 - CONCLUSION: 1. Evolving large left-sided MCA territory infarct with minimally improved [id number] subfalcine shift. 2. No intercurrent hemorrhage or other acute abnormality. Alejo De La Vega MD Abdomen X-Ray 05/06/17 0000 Signed Impressions: Service Date/Time: Saturday, May 06, 2017 17:42 - CONCLUSION: Dobbhoff feeding tube tip near the gastroduodenal junction. Obdulio Simms MD Hip and Pelvis X-Ray 05/05/17 0000 Signed Impressions: Service Date/Time: Friday, May 05, 2017 10:59 - CONCLUSION: Left proximal femur trochanteric/subtrochanteric fracture lucency visualized. Postoperative changes. Choco Mustafa MD Chest CT 04/30/17 0000 Signed Impressions: Service Date/Time: Sunday, April 30, 2017 09:20 - CONCLUSION: 1. Bilateral pulmonary infiltrates more pronounced within the lower lobes with tiny bilateral pleural effusions. Material seen filling the lower lobe bronchi bilaterally either related to purulent material or perhaps mucus plugging. Deangelo Wren Jr., MD Carotid Artery Ultrasound 04/24/17 0000 Signed Impressions: Service Date/Time: April 09:45 - CONCLUSION: 1. No hemodynamically significant carotid artery stenosis. Arnie Middleton MD Hip X-Ray 04/21/17 0000 Signed Impressions: Service Date/Time: Friday, April 21, 2017 11:36 - CONCLUSION: Fluoroscopic images during placement of intramedullary siomara left femur. Benja Ramsey MD Objective Remarks Gen: 76-year-old female HEENT: nc. at. perrl. mucous membranes moist. Neck: trached. Chest/pulmonary: unlabored. on ventilator. Cardiovascular: RRR. GI/abdomen: Distended. Nontender. Extremities: Warm bilaterally, anasarca 2+ upper and 2+ lower extremity edema. Incision sites over left hip, thigh ORIF site clean dry and intact. Neuro: Intubated, on no sedation. Has eye opening and grimaces spontaneously. Dense right hemiplegia noted. Withdraws left upper extremity, Withdraws LLE. No change. Pupils 2 mm, react. Date of Insertion: May 08, 2017 (changing it today) A/P Assessment and Plan Neuro/Psych: Left MCA CVA - 12 mm of [id number] subfalcine herniation - right-sided hemiplegia Acute encephalopathy History CVA Follow neuro status closely. Continue Aspirin 325 mg by mouth daily Patient was not a candidate for thrombolysis per discussion with neurology and radiology. Repeat head CT 05/05 showed slight improvement in the midline shift and mass effect Neurosurgery consulted 04/30- Dr. López, recommended conservative management Neurology following - Dr. Malave Cardiovascular: Hypertension IV fluids currently on hold due to edema As needed Antihypertensives to keep systolic blood pressure less than to 180 mmHg Echocardiogram 04/24 - EF 50 to 55%. Mild concentric LVH. Pulmonary: Acute hypoxic respiratory failure - aspiration possible HCAP Large left pneumothorax status post #10 Greek chest tube 05/07 Ventilator bundle Ipratropium/albuterol aerosols every 6 hours with albuterol aerosols every 2 hours Chest tube d/c'd 05/12 Daily SBTs. could start t-piece trials if stable today. GI/liver: Elevated transaminases Hypoalbuminemia Moderate to severe protein calorie malnutrition Dobbhoff for tube feedings and medications. Continue tube feeding with Glucerna 1.5 goal 45 cc an hour\ Lansoprazole 30 mg daily for GI regimen Docusate sodium 100 twice a day, Senokot 8.6 twice a day, polyethylene glycol 17 grams twice a day and lactulose 30 cc 4 times a day Evaluate CT abdomen/pelvis 05/07 - mild ascites. Large left hemothorax. Right greater than left pleural effusion. Avoid hepatotoxic drugs LFTs improving Alk Phos elevated again 05/18. continue fiber in diet. Endocrine: Diabetes mellitus Detemir 8 units subcutaneous daily. SSI high dose q4h. Holding glimepiride 4 mill grams by mouth daily /Renal/FEN: Hypopotassemia Strict intake output, monitor and replete electrolytes, follow BUN/creatinine. Moser catheter placed for urinary retention on 04/26. Moser removed 05/19 with q6h straight cath. Heme: Chronic Rivaroxaban use Leukocytosis Normocytic anemia Thrombocytosis Follow CBC and coags. On subcutaneous enoxaparin Hemoglobin currently stable. No indications for transfusion of blood proximally at this time ID: MSSA bacteremia Serratia/staph aureus pneumonia C glabrata UTI Pertinent cultures Urine culture 04/26/17 sofie glabrata Blood culture 04/29/17 1 out of 4 bottles staph aureus Sputum culture 04/30/17 staph aureus and Serratia. Blood cultures 2, sputum 1 and urine 05/08 pending -> Serratia, treated. off abx. MSK: Left Intertroch Hip Fx s/p IMN Vitamin D deficiency Prophylaxis: SCDs. Enoxaparin 40 mg sq daily-cleared by Dr. Ananda SANDS - lansoprazole Overall impression: Devastating CVA. No improvement. poor prognosis. very difficult wean given age, comorbidities and deconditioning. PEG placed. No change in neuro status. Medicaid pending for placement. Anuj Heaton MD May 20, 2017 06:45
[2017-05-20] MEDS: INSULIN DETEMIR 100 UNITS/ML VIAL SQ SCH (09:00)
[2017-05-20] MEDS: FUROSEMIDE 40 MG/5 ML UNIT DOSE CUP NG SCH (09:00)
[2017-05-20] MEDS: SODIUM CHLORIDE 0.9% FLUSH 5 ML FLUSH IV FLUSH SCH ×2 (09:00→20:57)
[2017-05-20] MEDS: BENEPROTEIN POWDER 1 PACK G-TUBE SCH ×3 (09:00→17:06)
[2017-05-20] MEDS: DOCUSATE SODIUM 100 MG/10 ML UDC PO SCH ×2 (09:00→20:57)
[2017-05-20] MEDS: LANSOPRAZOLE SOLUTAB 30 MG TAB NG SCH (09:15)
[2017-05-20] MEDS: CHOLECALCIFEROL (VIT D3) 5000 UNIT CAP PO SCH (09:15)
[2017-05-20] MEDS: CALCIUM/VITAMIN D 250 MG/125 U TAB PO SCH ×3 (09:15→17:06)
[2017-05-20] MEDS: ASPIRIN 325 MG TAB DOBHOFF SCH (09:16)
[2017-05-20 09:32] LABS: HEMATOCRIT 27.2 % (35.0-46.0); HEMOGLOBIN 8.7 GM/DL (11.6-15.3); MEAN CELL VOLUME 97.5 FL (80.0-100.0); MEAN CORPUSCULAR HEMOGLOBIN 31.2 PG (27.0-34.0); PLATELET COUNT 458 TH/MM3 (150-450); RED BLOOD COUNT 2.79 MIL/MM3 (4.00-5.30); WHITE BLOOD COUNT 9.3 TH/MM3 (4.0-11.0)
--- NOTE | 2017-05-20 11:30 | HHI.FPPN ---
Subjective Remarks Ms Hein had no acute events overnight. Continues to improve with CPAP trials; however, is not able to tolerate it for more than a few hours at a time. Her eyes are open today; however, very little evidence that she is able to follow commands. (Chuy Camacho MD R1) Objective Vitals Vital Signs Date Time Temp Pulse Resp B/P (MAP) Pulse Ox O2 Delivery O2 Flow Rate FiO2 05/20/17 10:00 92 05/20/17 08:00 35 05/20/17 08:00 76 05/20/17 08:00 97.9 76 22 148/71 (96) 98 05/20/17 07:24 98 35 05/20/17 07:00 99 Mechanical Ventilator 35 05/20/17 06:00 78 05/20/17 04:53 98 35 05/20/17 04:00 35 05/20/17 04:00 81 05/20/17 04:00 98.3 81 18 163/78 (106) 97 05/20/17 02:00 72 05/20/17 00:58 95 35 05/20/17 00:00 35 05/20/17 00:00 98.6 72 20 124/61 (82) 98 05/20/17 00:00 72 05/19/17 22:00 74 05/19/17 20:42 98 35 05/19/17 20:00 80 05/19/17 20:00 35 05/19/17 20:00 99.8 80 24 129/60 (83) 99 05/19/17 19:00 98 Mechanical Ventilator 35 05/19/17 18:00 84 05/19/17 16:00 35 05/19/17 16:00 99.7 80 28 106/55 (72) 99 05/19/17 16:00 80 05/19/17 14:00 80 05/19/17 12:05 103 05/19/17 12:00 99.4 103 26 115/55 (75) 98 05/19/17 12:00 35 05/19/17 11:56 97 35 I/O 05/19/17 05/19/17 05/19/17 05/20/17 05/20/17 05/20/17 07:00 15:00 23:00 07:00 15:00 23:00 Intake Total 1001 ml 150 ml 1104 ml 512 ml Output Total 600 ml 550 ml 361 ml Balance 401 ml 150 ml 554 ml 151 ml IV Total 310 ml 150 ml Tube Feeding 491 ml 504 ml 452 ml Tube Irrigant 600 ml Other 200 ml 60 ml Output Urine Total 600 ml 400 ml 360 ml Stool Total 150 ml 1 ml (Chuy Camacho MD R1) Result Diagram: 05/20/1783805/20/17838 Objective Remarks CONSTITUTIONAL/GEN: Nonverbal, lying in bed with tracheostomy and PEG tubes in place, and pt incontinent of stool. Patient's eyes are open today; she can move head, open and close left hand spontaneously, but does not appear to follow simple commands. HEAD: Normocephalic. Atraumatic. Less Right side facial droop today? LUNGS: Tracheostomy on the vent @ 98% sp O2 FiO2 40. Coarse breath sounds bilaterally but moving air well CARDIOVASCULAR: Regular rate and rhythm. Lower extremity bilateral pitting edema to thighs. Bilateral hands puffy. Right arm with some skin breakdown. Left arm with 1+ pitting edema. GI/ABD: 2+anasarca, normal BS w/o guarding or rebound. Glucerna 1.5 tube feed @ 45ml/hr. 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 Moves left UE and LE spontaneously. Does not withdraw right hand. : 200 ml straw colored urine in moser bag. MUSC: SCDs on bilateral lower extremities. Pedal pulses weak. Left foot cool to touch while right foot is warm. Procedures ORIF 04/21/17 Intubation 04/30/17 Medications and IVs Current Medications Medications (Trade) Dose Ordered Sig/Zeferino Route Start Time Stop Time Status Last Admin (Zofran Inj) 4 mg Q6H PRN IV PUSH 04/20/17 15:00 04/30/17 02:28 (Narcan Inj) 0.4 mg UNSCH PRN IV 04/20/17 17:15 (Milk Of Magnesia Liq) 30 ml Q12H PRN PO 04/20/17 20:30 (Dulcolax Supp) 10 mg DAILY PRN RECTAL 04/20/17 20:30 (Oscal-D 250-125) 250 mg TID PO 04/21/17 13:00 05/20/17 09:15 (Vitamin D3) 5,000 units DAILY PO 04/22/17 09:00 05/20/17 09:15 (NS Flush) 2 ml BID IV FLUSH 04/24/17 21:00 05/20/17 09:00 (NS Flush) 2 ml UNSCH PRN IV FLUSH 04/24/17 09:30 (Glucagon Inj) 1 mg UNSCH PRN IM/SQ 04/24/17 18:15 (Aspirin) 325 mg DAILY DOBHOFF 04/27/17 09:00 05/20/17 09:16 (Lopressor Inj) 5 mg Q5M PRN IV PUSH 04/27/17 04:00 05/03/17 18:26 Potassium Chloride 100 ml @ 50 mls/hr Q2H PRN IV 04/27/17 08:45 Potassium Chloride 100 ml @ 50 mls/hr Q2H PRN IV 04/27/17 08:45 05/18/17 10:41 (K-Lyte Cl Eff) 50 meq UNSCH PRN PO 04/27/17 08:45 Potassium Chloride 100 ml @ 25 mls/hr UNSCH PRN IV 04/27/17 08:45 05/04/17 19:07 Potassium Chloride 100 ml @ 50 mls/hr Q2H PRN IV 04/27/17 08:45 05/18/17 08:29 Magnesium Sulfate 4 gm/Sodium Chloride 100 ml @ 50 mls/hr UNSCH PRN IV 04/27/17 08:45 (Mag-Ox) 800 mg UNSCH PRN PO 04/27/17 08:45 Magnesium Sulfate 2 gm/Sodium Chloride 100 ml @ 50 mls/hr UNSCH PRN IV 04/27/17 08:45 (K-Phos) 2,000 mg Q4H PRN PO 04/27/17 08:45 04/28/17 15:38 Sodium Phosphate 30 mmol/Sodium Chloride 250 ml @ 42 mls/hr UNSCH PRN IV 04/27/17 08:45 04/27/17 23:59 (K-Phos) 2,000 mg UNSCH PRN PO/TUBE 04/27/17 08:45 05/08/17 06:32 Potassium Phosphate 30 mmol/ Sodium Chloride 260 ml @ 42 mls/hr UNSCH PRN IV 04/27/17 08:45 05/04/17 20:54 (Lovenox Inj) 40 mg Q24H SQ 05/01/17 08:00 Future Hold 05/14/17 09:55 (Colace Liq) 100 mg Q12HR PO 05/07/17 21:00 05/19/17 20:00 (Albuterol Neb) 2.5 mg Q2HR NEB PRN NEB 05/07/17 13:00 05/14/17 08:36 (Prevacid Odt) 30 mg DAILY NG 05/08/17 09:00 05/20/17 09:15 (Beneprotein Powder) 1 pack TID G-TUBE 05/12/17 13:00 05/20/17 09:00 (Lasix Liq) 40 mg DAILY NG 05/19/17 09:00 05/20/17 09:00 (D50w (Vial) Inj) 25 ml UNSCH PRN IV PUSH 05/19/17 08:00 (NovoLIN R SUPPLEMENTAL SCALE) 1 Q4HR SQ 05/19/17 08:00 05/20/17 08:00 (Levemir Inj) 8 units DAILY SQ 05/19/17 09:00 05/20/17 09:00 (Chuy Camacho MD R1) Urinary Catheter: Yes Date of Insertion: May 08, 2017 (intermittent in/out caths) (Chuy Camacho MD R1) A/P Assessment and Plan 76 y/o female with HTN, DM, CVA admitted for DKA and hip fracture. Now with massive left MCA stroke, right hemiplegia and midline shift resolving. Neuro and radiation oncology therapist consulted. Working with palliative care and family for goals of care. 05/07 CT abdomen/pelvis w/large pneumothorax on left side decompressed with chest tube. Chest tube pulled 05/12. Tracheostomy placed 05/15. PEG tube 05/16. -Overall poor prognosis, pursuing goals of care discussion with daughter (HCPOA) , but at this time daughter wishes continued intervention -05/09 - extensive discussion with daughter today indicates no willingness to pursue comfort measures only. Daughter continues to ask for aggressive management of her mother's condition; will continue to engage in this discussion -05/11--CXR w/bilateral pleural effusions vs pulmonary edema--diuresis ordered -05/14 -- little interval change. Wt down from 70 kg on 05/10 to 59kg today. CPAP trials progressing. Family meeting with daughter yielded no change in code status or goals of care. Plan is to re-join with discussing trach and PEG feeding tube with daughter in 2-3 days time. -05/15 -- Daughter consented to tracheostomy and procedure was performed today. CPAP trials still progressing. No other changes. -05/16 -- Tracheostomy in place, pt with eyes open today responding to simple commands. GI consulted with PEG tube planned for today. -05/17 - starting PEG tube feeds -05/18 - Glucerna 1.5 feed through PEG tube at 45ml/hr; changing moser out today (10 days); opens eyes but cannot track; does not respond to commands; still on Ancef IV for PEG and trach procedures. - 05/19 - no interval change in status. Inventory Associate And Driver to remove moser and rectal tube today. Pursuing movement to [facility]. -05/20 - no interval change, but she is increasing her stamina on CPAP trials to several hours now. In/out caths being placed for UOP. Discharge Planning Pending stroke progression and discussion for goals of care she has no Insurance. Medicaid was applied for which takes months and is often not approved in cases like this. she cannot go to a [facility] facility nor a SNF without Insurance. Case management explained that to her daughter (Chuy Camacho MD R1) Attending Attestation Patient seen and examined. Case reviewed and discussed with the resident team. Agree with plan of care as discussed with me and documented in the resident note. unfortunately, she will not improve Neurologically (Dawn Guajardo MD) Problem List: (1) Acute CVA (cerebrovascular accident) ICD Codes: I63.9 - Cerebral infarction, unspecified Status: Acute Plan: Patient found minimally responsive with neurological deficits around 0820 04/24. Stat CT of head was ordered, which showed large left MCA infarct. Diffuse edema throughout the left MCA distribution, suggest completed infarct. This was discussed and was not a candidate for intracranial intervention. CT (04/30): Reduction in midline shift to 11mm. Unchanged large left MCA infarction. CT head (05/06) shows: Evolving large left-sided MCA territory infarct with minimally improved [id number] subfalcine shift. No intercurrent hemorrhage or other acute abnormality. Echocardiogram- The left ventricular systolic function is low normal with an estimated ejection fraction in the range of 50-55%. Mild concentric left ventricular hypertrophy. Normal left ventricular size. [id number] mitral valve regurgitation. Carotid Artery US- No hemodynamically significant carotid stenosis -Consulted radiation oncology therapist, appreciate recs -Discontinue Ancef IV abx for ppx with surgical procedures 05/18 -s/p Tracheostomy 05/15 and PEG tube insertion 05/16 -IV hydration, watch for hypotension. -Keep systolic to less than 220 initially -Lactated Ringer's reduced to 75 ml/hr -Poor prognosis -Neurosurgery consulted -Recommended conservative management -Keep Na in 145-154 range -Tube feeds: Glucerna 1.5 mLs for diet via PEG tube, starting at low dose now then will start -Assisted Living Administrator consult for management and recs but will need to do maintenance fluids in the meantime until her PEG tube feeds are increased and she can change to water boluses in the PEG tube -Consulted palliative care-appreciate recs -Case discussed with daughter in-person about goals of care, limited treatment options, and poor prognosis.hope to be involved in future family discussions, can let palliative know this -Daughter continues to want aggressive care. Wishes to continue aggressive medical treatment despite prognosis -Neurology consulted-appreciate recs -Rectal ASA -Lovenox 40mg daily (2) On mechanically assisted ventilation ICD Codes: Z99.11 - Dependence on respirator [ventilator] status Plan: Impression: s/p trach procedure 05/15. Continues to fail CPAP trials, but is improving stamina gradually to tolerate it for longer periods; 35% FiO2 -Continue weaning trials as tolerated (3) Type 2 diabetes mellitus ICD Codes: E11.9 - Type 2 diabetes mellitus without complications Status: Chronic Plan: Admitted for DKA which has now resolved. Hemoglobin A1C is 12.9. Diabetes Type I is uncontrolled. BG levels in 97 - 223 range over last 24 hrs -Continue Levemir 10 units BID due to hypoglycemia at higher dose -Medium dose insulin sliding scale with goal blood glucose between 140 and 180 -Glucerna for PEG tube feedings @ 45 ml/hr as per GI recs (4) Fluid overload ICD Codes: E87.70 - Fluid overload, unspecified Status: Acute Plan: Inventory Associate And Driver noted fluid overload and has been diuresing; pt's wt on 04/21 51.9 kg -->83.4kg on 05/07 --> 59.8 kg on 05/16 -Lasix IV bid -Metolazone and Bumex d/c'd will just give maintenance fluids. her right side is likely edematous as she has not moved at all. can consider elevation if desired. (5) Abdominal distension ICD Codes: R14.0 - Abdominal distension (gaseous) Status: Acute Plan: Impression: Abdominal distension much improved today; first noted on exam 05/05 with serial KUBs neg for etiology. In association with transaminase elevation and Alk P >1k and GGT elevation. s/p large BM 05/07 per nursing staff 05/06 - CT abdomen/pelvis- large left pneumothorax, bilateral lower lobe consolidation and bilateral moderate-sized pleural effusions, significant soft tissue thickening of right lateral chest wall and left gluteus. Mild ascites 05/09 - abdominal distension unchanged; however, LFTs resolving following chest tube -Continue to monitor at this time -Continue to follow LFTs 05/11 - abdominal distention seems to be related to diffuse edema, trial of Lasix 20 mg IV twice a day, which was increased to 40 mg IV twice a day 05/12 - much less abdominal distention today. Significant improvement with significant net diuresis of almost 4 L. 05/14 - continues to improve 05/16 - no interval change 05/18 - improved 05/19 - no interval change (6) Elevated LFTs ICD Codes: R79.89 - Other specified abnormal findings of blood chemistry Plan: Impression: LFT elevations with alkaline phosphatase gradually rising from 351-1931 and AST rising from 50s to 217. Liver/biliary etiology expected as GGT 787. Gallbladder ultrasound obtained by radiation oncology therapist 05/08; focally unremarkable in appearance of gallbladder -Incrementally resolving since chest tube placement -Alk Phos again rising to 1020 w/normal AST/ALT on 05/18 -Monitor at this time (7) Sacral decubitus ulcer ICD Codes: L89.159 - Pressure ulcer of sacral region, unspecified stage Plan: Patient with beginnings of a sacral decubitus ulcer. -Wound care consult ordered and appreciated (8) Atrial fibrillation ICD Codes: I48.91 - Unspecified atrial fibrillation Status: Acute Plan: Hx of intermittent Afib. Resolved with administration of Lopressor. -Continue to monitor -Lopressor PRN (9) Hip fracture ICD Codes: S72.009A - Fracture of unspecified part of neck of unspecified femur , initial encounter for closed fracture Status: Acute Plan: S/P left hip reduction and intramedullary nail fixation on 04-21-17 -Consulted orthopedics-appreciate recs * WBAT * Daily dressing changes -Calcium/Vitamin D -Fluids as above -Tylenol, morphine PRN pain (10) Hypertension ICD Codes: I10 - Essential (primary) hypertension Status: Acute Plan: IV hydration. BPs wnl overnight -Antihypertensives to keep SBP<180 -Lasix or Bumex for diuresis as required (11) Pneumothorax ICD Codes: J93.9 - Pneumothorax, unspecified Status: Resolved Plan: Impression: Noticed on 05/06 CT abdomen/pelvis- large left pneumothorax, bilateral lower lobe consolidation and bilateral moderate-sized pleural effusions. S/P chest tube placement. Chest tube to waterseal for the last few days. Chest tube output 50 mL or less for 4 days. -Chest tube pulled on 05/12/17 -Follow up chest x-ray today -Chest tube pulled 05/13--resolved (12) HCAP (healthcare-associated pneumonia) ICD Codes: J18.9 - Pneumonia, unspecified organism Status: Resolved Plan: Suspect possible HCAP. Persistent leukocytosis. Possible aspiration Chest CT (04/30): Bilateral pulmonary infiltrates more pronounced within lower lobes with b/l pleural effusions. Material in lower lobe bronchi b/l, purulent or mucus plugging 04/30 Sputum culture showing staph aureus and Serratia Marcescens Legionella and strep pneumo urine tests negative CXR 05/02: Increased airspace opacity bilaterally. The pattern may represent pulmonary edema. There is likely a left pleural effusion. CXR 05/08: Stable diffuse consolidation of right warm to much lesser extent left perihilar region consistent with pneumonia or asymmetric pulmonary vascular congestion CXR 05/09: no pneumothorax, but small subcutaneous emphysema in left chest, patchy opacity in right lower lung consistent with pneumonia or pulmonary vascular congestion. Continue antibiotic therapy as per ID recs -Hold Cefepime 2g IV daily 05/14 -Repeat blood cultures (05/07) pending , with 1/4 positive; possible contaminant -Sputum cx 05/07 reveals Serratia marascens susceptible to cefepime and levo -Duonebs treatments q6h Antibiotic History -Discontinued Cefepime 2g IV daily (04/30 - d/c 05/04 ) -Discontinued Vancomycin IV (04/30 - d/c 05/04 ) -Discontinued Flagyl 500mg q8h (04/29 - 05/13) -Discontinued Levaquin IV 750 mg (05/04-05/13) HCAP (13) Sepsis ICD Codes: A41.9 - Sepsis, unspecified organism Status: Resolved Plan: Impression: Pt met SIRS criteria with tachycardia, leukocytosis Leukocytosis resolved Cultures: 05/07 Blood cultures and sputum cultures negative to date 04/30 Sputum culture with staph, Serratia 04/29 blood culture with staph -See antibiotics as below -Culture results as below -Monitor vitals (14) Fluids, Electrolytes, and Nutrition Status: Acute Plan: Fluids: IVF as above Electrolyte: on electrolyte protocol Nutrition: Glucerna tube feeds DVT ppx: SCDs/lovenox 40 mg daily GI ppx: protonix Colace, fleet enema mineral oil (Chuy Camacho MD R1) Problem Qualifiers (1) Type 2 diabetes mellitus: Qualified Codes: E11.9 - Type 2 diabetes mellitus without complications (2) Fluid overload: Qualified Codes: E87.79 - Other fluid overload (3) Sacral decubitus ulcer: Qualified Codes: L89.151 - Pressure ulcer of sacral region, stage 1 (4) Atrial fibrillation: Qualified Codes: I48.0 - Paroxysmal atrial fibrillation (5) Hip fracture: (6) Hypertension: Qualified Codes: I10 - Essential (primary) hypertension (7) Pneumothorax: (8) Sepsis: Qualified Codes: A41.9 - Sepsis, unspecified organism Chuy Camacho MD R1 May 20, 2017 11:29 Dawn Guajardo MD May 21, 2017 13:53
[2017-05-20] MEDS ORDERED: DEXTROSE 50% IN WATER 50 ML SYRINGE IV PUSH PRN (21:00)
[2017-05-21] VITALS (18 sets, daily range): BP systolic 123–175; BP diastolic 59–86; PULSE 72–86; RESP 14–22; TEMP 97.6–99; O2SAT 92–100
[2017-05-21] MEDS: INSULIN NovoLIN REGULAR SUPPLEMENTAL SCALE SQ SCH ×4 (04:38→12:00)
--- NOTE | 2017-05-21 06:52 | HHI.CCPN ---
Subjective Remarks/Hospital Course 04/24: 76-year-old female with a medical history significant for prior stroke, diabetes mellitus who was admitted with DKA and a hip fracture for which she underwent ORIF on 04/21. Patient developed altered mental status and was last noted to be okay around 5:30 AM. Subsequently there was a change in her mental status and she was noted to not be moving her right side for which stroke alert was called. Head CT showed large left MCA territory ischemic infarct with edema. Patient was transferred to the ICU by family medicine service in the critical care consult was requested. I evaluated the patient following arrival to the ICU. At that time she was laying in bed with her eyes open however not following commands and had a dense right hemiplegia. Patient was also evaluated by Dr. Malave from neurology. I further discussed current event with patient's daughter following her arrival to the ICU. Per the daughter patient has been living with her since her stroke in 2014 and does ambulate however has been having problems with memory and incontinence as well as gait difficulties. She does not feel patient would want intubation or tracheostomy or PEG tube. 04/25: Patient remains encephalopathic, awake though not following commands consistently. Dense right hemiplegia persists. Appears to be awake enough to protect airway currently. Patient's daughter rescinded DNR and made a full code last evening. 04/26: Remains encephalopathic, not following commands. On Dobbhoff for tube feeds at 30 cc per hour. Had urinary retention and drained 2 L of urine after placing Moser catheter today. CT head done this morning with large left MCA territory infarct with left to right midline shift and significant cerebral edema. Hyperglycemia noted. Patient given mannitol earlier for increasing cerebral edema. 04/27: Remains encephalopathic, not following commands. On Dobbhoff tube feeds at 30 cc per hour. When into A. fib with RVR last night which responded with Lopressor 5 mg IV 1 dose. 04/28: Remains encephalopathic, arousable, not following commands. Moves left upper extremity spontaneously. Tolerating Dobbhoff tube feeds. Remains on nasal cannula. 04/29: Encephalopathic, eyes be arousable, moves left upper extremity spontaneously and occasionally opens eyes. Dense right hemiplegia and aphasia persists. On nasal cannula. Dobbhoff tube feeds being advanced. Patient was transfused 1 unit PRBCs yesterday. Urine culture with yeast from yesterday for which fluconazole being started. Had brief run of A. fib with RVR which improved with Lopressor IV, currently in sinus rhythm. 04/30: Worsening hypoxemic respiratory failure, currently on partial nonrebreather. Remains lethargic. WBC count increased from 14.6 today 20.7. Chest x-ray shows bilateral worsening infiltrates and small pleural effusions. Sodium 154, weight up by 8 KG. Albumin 1 mg Bumex 1. Also one dose of albumin. Remains in sinus tachycardia. Tmax 101.3 05/01: Patient was intubated yesterday for lack of airway protection, and severe hypoxemic respiratory failure from aspiration pneumonia involving multiple lobes. Patient is on the vent lethargic, no spontaneous eye opening. Chest x- ray remains unchanged. Remains intermittently febrile Tmax 101.3. WBC count improving 05/02: Remains critically ill with no improvement in mental status. Spiking fever of 101.7. Blood culture and sputum culture with staph aureus sputum also growing GNR, WBC count 22,000 now indicating worsening sepsis. Daughter still requesting aggressive care. Palliative care is following 05/03: S/P large area dominant hemisphere CVA. No neurological improvement. Now with pneumonia (infiltrate, fever, leukocytosis) and appropriate abx coverage. She will have a hard time surviving the hip fx, CVA, and pneumonia. Palliative Care needs to be a mainstay of our plan. 05/04: No improvement in neuro status. Sputum C&S allows us to narrow abx coverage to levaquin alone. Lungs remain quite congested. Enteral nutrition tolerated. 05/05: No improvement in neuro status. Moves left arm spontaneously. Flaccid right side. Unresponsive. Persistent mild hypoglycemia - will cut Levemir 50%. Abdomen more distended, check KUB. 05/06: CT head with massive left MCA infarction and > 1 cm shift in right handed woman. She opens eyes, does not track. 05/07: Patient open eyes. Attempts to respond. [place] speaking. Tolerating tube feeds. Positive bowel movement. Volume overloaded. 05/08: Tmax 99.4. Potassium being replaced. Ultrasound gallbladder currently pending. Transaminases are trending downward. Gently diurese. 05/09: Alk phos decreasing. Remains with good urine output. Neurological status not improving. 05/10: Fixed neuro deficit unchanged. Profound CVA. 05/11: Appears to track with eyes today. No improvement in motor function. Remains very edematous, diuretics doubled. 05/12: Continued thick secretions. Afebrile, leukocytosis resolved. 05/13: CT head with completed left MCA stroke, persistent edema and 5 mm shift away. Does not last long on SBTs - major decision now is trach/PEG. 05/14: Daughter has decided to proceed with trach and PEG. I have been pessimistic with her about chances for a meaningful recovery. 05/15: Plan for trach today. No change in neuro status. Still ventilator dependent. 05/16: Trach completed. Await PEG and disposition. 05/17: PEG placed 05/16. Start TFs today after nutrition consult. Work to place patient. 05/18: No improvement. Does open eyes, no focus or tracking. Completed large dominant (left) hemisphere CVA in right handed woman with severe deficit. Medicaid pending status, [employer] is following. 05/19: no improvements in neuro exam. ready for LTAC. will d/c moser and rectal tubes. Subjective 05/20: no changes or improvements. very difficult placement due to patient not [place] citizen. 05/21: no improvements. resting on vent overnight due to distress. Objective Vital Signs Date Time Temp Pulse Resp B/P (MAP) Pulse Ox O2 Delivery O2 Flow Rate FiO2 05/21/17 06:00 86 05/21/17 04:28 98 30 05/21/17 04:00 98.5 14 156/76 (102) 05/20/17 19:00 Mechanical Ventilator 05/19/17 07:00 14.00 Intake and Output 05/21/17 05/21/17 05/22/17 08:00 16:00 00:00 Intake Total 545 ml Output Total 611 ml Balance -66 ml Result Diagram: 05/20/17 0839 05/20/17 0839 Imaging Last Impressions Chest X-Ray 05/07/17 0400 Signed Impressions: Service Date/Time: Sunday, May 07, 2017 04:38 - CONCLUSION: 1. Stable Low-lying ETT with tip approximately 1 cm above the valerie. 2. Mild interval progression of bilateral airspace consolidation exaggerated by patient rotation. 3. Increased small left pleural effusion. Alejo De La Vega MD Abdomen/Pelvis CT 05/07/17 0000 Signed Impressions: Service Date/Time: Sunday, May 07, 2017 13:23 - CONCLUSION: 1. Large left pneumothorax. 2. Bilateral lower lobe consolidation and bilateral moderate size pleural effusions. 3. Significant soft tissue thickening of the right lateral chest wall and left gluteus muscle. 4. Mild ascites. The findings were called to Dr. Carney. Denagelo Zamora MD Head CT 05/06/17 0000 Signed Impressions: Service Date/Time: Saturday, May 06, 2017 04:18 - CONCLUSION: 1. Evolving large left-sided MCA territory infarct with minimally improved [id number] subfalcine shift. 2. No intercurrent hemorrhage or other acute abnormality. Alejo De La Vega MD Abdomen X-Ray 05/06/17 0000 Signed Impressions: Service Date/Time: Saturday, May 06, 2017 17:42 - CONCLUSION: Dobbhoff feeding tube tip near the gastroduodenal junction. Obdulio Simms MD Hip and Pelvis X-Ray 05/05/17 0000 Signed Impressions: Service Date/Time: Friday, May 05, 2017 10:59 - CONCLUSION: Left proximal femur trochanteric/subtrochanteric fracture lucency visualized. Postoperative changes. Choco Mustafa MD Chest CT 04/30/17 0000 Signed Impressions: Service Date/Time: Sunday, April 30, 2017 09:20 - CONCLUSION: 1. Bilateral pulmonary infiltrates more pronounced within the lower lobes with tiny bilateral pleural effusions. Material seen filling the lower lobe bronchi bilaterally either related to purulent material or perhaps mucus plugging. Deangelo Wren Jr., MD Carotid Artery Ultrasound 04/24/17 0000 Signed Impressions: Service Date/Time: April 09:45 - CONCLUSION: 1. No hemodynamically significant carotid artery stenosis. Arnie Middleton MD Hip X-Ray 04/21/17 0000 Signed Impressions: Service Date/Time: Friday, April 21, 2017 11:36 - CONCLUSION: Fluoroscopic images during placement of intramedullary siomara left femur. Benja Ramsey MD Objective Remarks Gen: 76-year-old female HEENT: nc. at. perrl. mucous membranes moist. Neck: trached. Chest/pulmonary: unlabored. on ventilator. Cardiovascular: RRR. GI/abdomen: Distended. Nontender. Extremities: Warm bilaterally, anasarca 2+ upper and 2+ lower extremity edema. Incision sites over left hip, thigh ORIF site clean dry and intact. Neuro: Intubated, on no sedation. Has eye opening and grimaces spontaneously. Dense right hemiplegia noted. Withdraws left upper extremity, Withdraws LLE. No change. Pupils 2 mm, react. Date of Insertion: May 08, 2017 A/P Assessment and Plan Neuro/Psych: Left MCA CVA - 12 mm of [id number] subfalcine herniation - right-sided hemiplegia Acute encephalopathy History CVA Follow neuro status closely. Continue Aspirin 325 mg by mouth daily Patient was not a candidate for thrombolysis per discussion with neurology and radiology. Repeat head CT 05/05 showed slight improvement in the midline shift and mass effect Neurosurgery consulted 04/30- Dr. López, recommended conservative management Neurology following - Dr. Malave Cardiovascular: Hypertension IV fluids currently on hold due to edema As needed Antihypertensives to keep systolic blood pressure less than to 180 mmHg Echocardiogram 04/24 - EF 50 to 55%. Mild concentric LVH. Pulmonary: Acute hypoxic respiratory failure - aspiration possible HCAP Large left pneumothorax status post #10 [place] chest tube 05/07 Ventilator bundle Ipratropium/albuterol aerosols every 6 hours with albuterol aerosols every 2 hours Chest tube d/c'd 05/12 Daily SBTs. failing for tachypnea. will continue trials daily. GI/liver: Elevated transaminases Hypoalbuminemia Moderate to severe protein calorie malnutrition Dobbhoff for tube feedings and medications. Continue tube feeding with Glucerna 1.5 goal 45 cc an hour\ Lansoprazole 30 mg daily for GI regimen Docusate sodium 100 twice a day, Senokot 8.6 twice a day, polyethylene glycol 17 grams twice a day and lactulose 30 cc 4 times a day Evaluate CT abdomen/pelvis 05/07 - mild ascites. Large left hemothorax. Right greater than left pleural effusion. Avoid hepatotoxic drugs LFTs improving Alk Phos elevated again 05/18. continue fiber in diet. Endocrine: Diabetes mellitus Detemir 8 units subcutaneous daily. SSI high dose q4h. Holding glimepiride 4 mg by mouth daily /Renal/FEN: Hypopotassemia Strict intake output, monitor and replete electrolytes, follow BUN/creatinine. Moser catheter placed for urinary retention on 04/26. Moser removed 05/19 with q6h straight cath. Heme: Chronic Rivaroxaban use Leukocytosis Normocytic anemia Thrombocytosis Follow CBC and coags. On subcutaneous enoxaparin Hemoglobin currently stable. No indications for transfusion of blood proximally at this time ID: MSSA bacteremia Serratia/staph aureus pneumonia C glabrata UTI Pertinent cultures Urine culture 04/26/17 sofie glabrata Blood culture 04/29/17 1 out of 4 bottles staph aureus Sputum culture 04/30/17 staph aureus and Serratia. Blood cultures 2, sputum 1 and urine 05/08 pending -> Serratia, treated. off abx. MSK: Left Intertroch Hip Fx s/p IMN Vitamin D deficiency Prophylaxis: SCDs. Enoxaparin 40 mg sq daily-cleared by Dr. Ananda SANDS - lansoprazole Overall impression: Devastating CVA. No improvement. poor prognosis. very difficult wean given age, comorbidities and deconditioning. PEG placed. No change in neuro status. Medicaid pending for placement. Anuj Heaton MD May 21, 2017 06:52
[2017-05-21] MEDS: BENEPROTEIN POWDER 1 PACK G-TUBE SCH ×3 (08:15→18:00)
[2017-05-21] MEDS: SODIUM CHLORIDE 0.9% FLUSH 5 ML FLUSH IV FLUSH SCH ×2 (08:15→21:00)
[2017-05-21] MEDS: DOCUSATE SODIUM 100 MG/10 ML UDC PO SCH ×2 (08:15→20:43)
[2017-05-21] MEDS: INSULIN DETEMIR 100 UNITS/ML VIAL SQ SCH ×2 (09:00→21:19)
--- NOTE | 2017-05-21 09:15 | HHI.FPPN ---
Subjective Remarks Ms Hein is stable today. She is still on the ventilator for the trach with her PEG tube feeds. Per report, case management stated that she has been rejected for medicaid as she is not a citizen. Unfortunately, her CVA was so devastating that she will never recover sufficiently to resume her prior level of function or anything near it. No new events overnight. Objective Vitals Vital Signs Date Time Temp Pulse Resp B/P (MAP) Pulse Ox O2 Delivery O2 Flow Rate FiO2 05/21/17 08:00 84 05/21/17 08:00 35 05/21/17 08:00 99.0 83 16 123/59 (80) 97 05/21/17 07:53 98 30 05/21/17 07:53 30 05/21/17 07:00 98 Mechanical Ventilator 35 05/21/17 06:00 86 05/21/17 04:28 98 30 05/21/17 04:00 80 05/21/17 04:00 98.5 80 14 156/76 (102) 100 05/21/17 04:00 30 05/21/17 02:00 73 05/21/17 00:48 99 30 05/21/17 00:00 79 05/21/17 00:00 98.5 79 14 149/70 (96) 99 05/21/17 00:00 30 05/20/17 22:00 72 05/20/17 20:19 100 30 05/20/17 20:00 98.1 70 14 143/67 (92) 100 05/20/17 20:00 30 05/20/17 20:00 70 05/20/17 19:00 99 Mechanical Ventilator 35 05/20/17 18:00 74 05/20/17 16:00 35 05/20/17 16:00 98.2 79 22 132/71 (91) 99 05/20/17 16:00 80 05/20/17 15:43 98 35 05/20/17 14:00 75 05/20/17 12:18 100 35 05/20/17 12:16 35 05/20/17 12:00 35 05/20/17 12:00 73 05/20/17 12:00 98.0 95 14 123/61 (81) 99 05/20/17 10:00 92 I/O 9/19/17 9/19/17 05/20/17 05/21/17 05/21/17 05/21/17 07:00 15:00 23:00 07:00 15:00 23:00 Intake Total 512 ml 482 ml 545 ml Output Total 361 ml 803 ml 611 ml Balance 151 ml -321 ml -66 ml Tube Feeding 452 ml 432 ml 485 ml Other 60 ml 50 ml 60 ml Output Urine Total 360 ml 800 ml 610 ml Stool Total 1 ml 3 ml 1 ml Result Diagram: 05/20/17 0839 05/20/17838 Objective Remarks CONSTITUTIONAL/GEN: Nonverbal, lying in bed with tracheostomy and PEG tubes in place, and pt incontinent of stool. Patient's eyes are closed today; she can move head, open and close left hand spontaneously, but does not appear to follow simple commands. HEAD: Normocephalic. Atraumatic. Right side facial droop LUNGS: Tracheostomy on the vent @ 98% sp O2 FiO2 40. Coarse breath sounds bilaterally but moving air well CARDIOVASCULAR: Regular rate and rhythm. Lower extremity bilateral pitting edema to thighs. Bilateral hands puffy. Right arm with some skin breakdown. Left arm with 1+ pitting edema. GI/ABD: 2+anasarca, normal BS w/o guarding or rebound. Glucerna 1.5 tube feed @ 45ml/hr. 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 Moves left UE and LE spontaneously. Does not withdraw right hand. : 200 ml straw colored urine in moser bag. MUSC: SCDs on bilateral lower extremities. Pedal pulses weak. Left foot cool to touch while right foot is warm. Procedures ORIF 04/21/17 Intubation 04/30/17 Urinary Catheter: No Date of Insertion: May 08, 2017 A/P Assessment and Plan 76 y/o female with HTN, DM, CVA admitted for DKA and hip fracture. Sadly, patients with hip fractures have other problems and have a high chance of fatal conditions near the time of their fractures. Hip fractures are often a marker for other frailty. Now with massive left MCA stroke, right hemiplegia and midline shift resolving. Neuro and extension service advisor consulted. Working with palliative care and daughter for goals of care. 05/07 CT abdomen/pelvis w/large pneumothorax on left side decompressed with chest tube. Chest tube pulled 05/12. Tracheostomy placed 05/15. PEG tube 05/16. -Overall poor prognosis, pursuing goals of care discussion with daughter (HCPOA) , but at this time daughter wishes continued intervention -05/09 - extensive discussion with daughter today indicates no willingness to pursue comfort measures only. Daughter continues to ask for aggressive management of her mother's condition; will continue to engage in this discussion -05/11--CXR w/bilateral pleural effusions vs pulmonary edema--diuresis ordered -05/14 -- little interval change. Wt down from 70 kg on 05/10 to 59kg today. CPAP trials progressing. Family meeting with daughter yielded no change in code status or goals of care. Plan is to re-join with discussing trach and PEG feeding tube with daughter in 2-3 days time. -05/15 -- Daughter consented to tracheostomy and procedure was performed today. CPAP trials still progressing. No other changes. -05/16 -- Tracheostomy in place, pt with eyes open today responding to simple commands. GI consulted with PEG tube planned for today. -05/17 - starting PEG tube feeds -05/18 - Glucerna 1.5 feed through PEG tube at 45ml/hr; changing moser out today (10 days); opens eyes but cannot track; does not respond to commands; still on Ancef IV for PEG and trach procedures. - 05/19 - no interval change in status. Retail Advertising Sales Manager to remove moser and rectal tube today. Pursuing movement to [facility]. -05/20 - no interval change, but she is increasing her stamina on CPAP trials to several hours now. In/out caths being placed for UOP. 05/21 no medicaid pending Discharge Planning Pending stroke progression and discussion for goals of care she has no Insurance. Medicaid was applied for which takes months and is often not approved in cases like this. she cannot go to a [facility] facility nor a SNF without Insurance. Case management explained that to her daughter Problem List: (1) Acute CVA (cerebrovascular accident) ICD Codes: I63.9 - Cerebral infarction, unspecified Status: Acute Plan: Patient found minimally responsive with neurological deficits around 0820 04/24. Stat CT of head was ordered, which showed large left MCA infarct. Diffuse edema throughout the left MCA distribution, suggested completed infarct. This was discussed and was not a candidate for intracranial intervention. CT (8/30): Reduction in midline shift to 11mm. Unchanged large left MCA infarction. CT head (05/06) shows: Evolving large left-sided MCA territory infarct with minimally improved goxf-no-mxbgr subfalcine shift. No intercurrent hemorrhage or other acute abnormality. Echocardiogram- The left ventricular systolic function is low normal with an estimated ejection fraction in the range of 50-55%. Mild concentric left ventricular hypertrophy. Normal left ventricular size. Oizvh-wa-eljg mitral valve regurgitation. Carotid Artery US- No hemodynamically significant carotid stenosis -Consulted extension service advisor, appreciate recs -s/p Tracheostomy 05/15 and PEG tube insertion 05/16 -change to fluid through PEG tube -Poor prognosis -Neurosurgery consulted -Recommended conservative management -Tube feeds: Glucerna 1.5 mLs for diet via PEG tube, starting at low dose now then will increase -Administrative Technician consulted for management and recs but will need to do maintenance fluids in the meantime until her PEG tube feeds are increased and she can change to water boluses in the PEG tube -Consulted palliative care-appreciate recs. appreciate help in talking to her daughter -Case discussed with daughter in-person about goals of care, limited treatment options, and poor prognosis.hope to be involved in future family discussions, have let palliative know this -Daughter continues to want aggressive care. Wishes to continue aggressive medical treatment despite prognosis -Neurology consulted-appreciate recs -Rectal ASA -Lovenox 40mg daily (2) On mechanically assisted ventilation ICD Codes: Z99.11 - Dependence on respirator [ventilator] status Plan: Impression: s/p trach procedure 05/15. Continues to fail CPAP trials, but is hopefully improving stamina gradually to tolerate it for longer periods; 35% FiO2 -Continue weaning trials as tolerated (3) Type 2 diabetes mellitus ICD Codes: E11.9 - Type 2 diabetes mellitus without complications Status: Chronic Plan: Admitted for DKA which has now resolved. Hemoglobin A1C is 12.9. Diabetes Type I is uncontrolled. -some hypoglycemia will change insulin doses -Medium dose insulin sliding scale with goal blood glucose between 140 and 180 -Glucerna for PEG tube feedings @ 45 ml/hr as per GI recs. as her PEG tube feeds have changed, she needs new insulin doses (4) Fluid overload ICD Codes: E87.70 - Fluid overload, unspecified Status: Acute Plan: Retail Advertising Sales Manager noted fluid overload and has been diuresing; pt's wt on 04/21 51.9 kg -->83.4kg on 05/07 --> 59.8 kg on 05/16 -Lasix IV bid will just give maintenance fluids. her right side is likely edematous as she has not moved at all. can consider elevation if desired. can also consider wrapping her limb if the fluid was more than a cosmetic problem (5) Elevated LFTs ICD Codes: R79.89 - Other specified abnormal findings of blood chemistry Plan: Impression: LFT elevations with alkaline phosphatase gradually rising from 351-1931 and AST rising from 50s to 217. Liver/biliary etiology expected as GGT 787. Gallbladder ultrasound obtained by extension service advisor 05/08; focally unremarkable in appearance of gallbladder -Incrementally resolving since chest tube placement -Alk Phos again rising to 1020 w/normal AST/ALT on 05/18 -Monitor at this time no one could do surgery on her as she is such a poor candidate (6) Sacral decubitus ulcer ICD Codes: L89.159 - Pressure ulcer of sacral region, unspecified stage Plan: Patient with beginnings of a sacral decubitus ulcer. -Wound care consult ordered and appreciated (7) Atrial fibrillation ICD Codes: I48.91 - Unspecified atrial fibrillation Status: Acute Plan: Hx of intermittent Afib. Resolved with administration of Lopressor. -Continue to monitor -Lopressor PRN (8) Hip fracture ICD Codes: S72.009A - Fracture of unspecified part of neck of unspecified femur , initial encounter for closed fracture Status: Acute Plan: S/P left hip reduction and intramedullary nail fixation on 04-21-17 -Consulted orthopedics-appreciate recs * WBAT * Daily dressing changes -Calcium/Vitamin D -Fluids as above -Tylenol, morphine PRN pain (9) Hypertension ICD Codes: I10 - Essential (primary) hypertension Status: Acute Plan: IV hydration. BPs wnl overnight -Antihypertensives to keep SBP<180 -Lasix or Bumex for diuresis as required (10) Fluids, Electrolytes, and Nutrition Status: Acute Plan: Fluids: IVF as above Electrolyte: on electrolyte protocol Nutrition: Glucerna tube feeds DVT ppx: SCDs/lovenox 40 mg daily GI ppx: protonix Colace, fleet enema mineral oil Problem Qualifiers (1) Type 2 diabetes mellitus: Qualified Codes: E11.9 - Type 2 diabetes mellitus without complications (2) Fluid overload: Qualified Codes: E87.79 - Other fluid overload (3) Sacral decubitus ulcer: Qualified Codes: L89.151 - Pressure ulcer of sacral region, stage 1 (4) Atrial fibrillation: Qualified Codes: I48.0 - Paroxysmal atrial fibrillation (5) Hip fracture: (6) Hypertension: Qualified Codes: I10 - Essential (primary) hypertension Dawn Guajardo MD May 21, 2017 09:15
[2017-05-21] MEDS: ASPIRIN 325 MG TAB DOBHOFF SCH (09:22)
[2017-05-21] MEDS: FUROSEMIDE 40 MG/5 ML UNIT DOSE CUP NG SCH (09:22)
[2017-05-21] MEDS: CHOLECALCIFEROL (VIT D3) 5000 UNIT CAP PO SCH (09:22)
[2017-05-21] MEDS: CALCIUM/VITAMIN D 250 MG/125 U TAB PO SCH ×3 (09:23→18:00)
[2017-05-21] MEDS: LANSOPRAZOLE SOLUTAB 30 MG TAB NG SCH (09:23)
[2017-05-21] MEDS ORDERED: GLUCAGON 1 MG/ML VIAL OTHER PRN (13:15)
[2017-05-21] MEDS ORDERED: DEXTROSE 50% IN WATER 50 ML VIAL(D50) IV PUSH PRN (13:15)
[2017-05-21] MEDS: INSULIN ASPART SUPPLEMENTAL SCALE SQ SCH ×2 (16:49→21:00)
[2017-05-22] VITALS (20 sets, daily range): BP systolic 116–165; BP diastolic 62–89; PULSE 73–87; RESP 13–21; TEMP 96.9–98.5; O2SAT 90–100
[2017-05-22] MEDS: INSULIN ASPART SUPPLEMENTAL SCALE SQ SCH ×4 (08:00→21:00)
[2017-05-22] MEDS: DOCUSATE SODIUM 100 MG/10 ML UDC PO SCH ×2 (09:00→21:00)
[2017-05-22] MEDS: SODIUM CHLORIDE 0.9% FLUSH 5 ML FLUSH IV FLUSH SCH ×2 (09:00→21:00)
[2017-05-22] MEDS: BENEPROTEIN POWDER 1 PACK G-TUBE SCH ×3 (09:00→17:00)
[2017-05-22] MEDS: INSULIN DETEMIR 100 UNITS/ML VIAL SQ SCH ×2 (09:00→21:00)
[2017-05-22] MEDS: CALCIUM/VITAMIN D 250 MG/125 U TAB PO SCH ×3 (09:21→17:11)
[2017-05-22] MEDS: FUROSEMIDE 40 MG/5 ML UNIT DOSE CUP NG SCH (09:21)
[2017-05-22] MEDS: LANSOPRAZOLE SOLUTAB 30 MG TAB NG SCH (09:21)
[2017-05-22] MEDS: ASPIRIN 325 MG TAB DOBHOFF SCH (09:21)
[2017-05-22] MEDS: CHOLECALCIFEROL (VIT D3) 5000 UNIT CAP PO SCH (09:21)
--- NOTE | 2017-05-22 09:37 | HHI.FPPN ---
Subjective Remarks Ms Hein had no acute events overnight; however, was in respiratory distress yesterday on CPAP off the vent and was placed back on the vent. Also, BP elevated. No changes in neuro status, but appears to be increasing stamina off the vent. (Chuy Camacho MD R1) Objective Vitals Vital Signs Date Time Temp Pulse Resp B/P (MAP) Pulse Ox O2 Delivery O2 Flow Rate FiO2 05/22/17 08:48 100 35 05/22/17 06:00 75 05/22/17 04:02 100 40 05/22/17 04:00 98.5 73 14 151/69 (96) 100 05/22/17 04:00 73 05/22/17 04:00 40 05/22/17 02:00 76 05/22/17 01:02 100 40 05/22/17 00:00 80 05/22/17 00:00 35 05/22/17 00:00 98.2 82 21 163/75 (104) 100 05/21/17 22:00 84 05/21/17 20:44 92 30 05/21/17 20:00 98.2 83 22 175/86 (115) 97 05/21/17 20:00 83 05/21/17 20:00 35 05/21/17 19:00 98 Mechanical Ventilator 35 05/21/17 18:00 77 05/21/17 16:00 79 05/21/17 16:00 97.6 79 22 128/66 (86) 98 05/21/17 16:00 35 05/21/17 15:47 94 30 05/21/17 14:00 73 05/21/17 12:00 98.8 77 21 135/67 (89) 98 05/21/17 12:00 35 05/21/17 12:00 72 05/21/17 11:30 96 30 05/21/17 10:00 79 I/O 05/21/17 05/21/17 05/21/17 05/22/17 05/22/17 05/22/17 07:00 15:00 23:00 07:00 15:00 23:00 Intake Total 545 ml 466 ml 542 ml Output Total 611 ml 903 ml 602 ml Balance -66 ml -437 ml -60 ml IV Total 0 ml Tube Feeding 485 ml 466 ml 442 ml Other 60 ml 100 ml Output Urine Total 610 ml 900 ml 600 ml Stool Total 1 ml 3 ml 2 ml (Chuy Camacho MD R1) Result Diagram: 05/20/17 0839 05/20/17 08 Objective Remarks CONSTITUTIONAL/GEN: Nonverbal, lying in bed with tracheostomy and PEG tubes in place. Patient's eyes are open today; she can move head, open and close left hand spontaneously, but does not appear to follow simple commands. HEAD: Normocephalic. Atraumatic. Right side facial droop less prominent today. LUNGS: Tracheostomy on the vent @ 100% sp O2 FiO2 40. Coarse breath sounds bilaterally but moving air well CARDIOVASCULAR: Regular rate and rhythm. Lower extremity bilateral pitting edema to thighs. Bilateral hands puffy with R>L. Right arm with some skin breakdown healing and no weeping. Left arm with 1+ pitting edema. GI/ABD: normal BS w/o guarding or rebound. no grimacing with palpation. Glucerna 1.5 tube feed @ 45ml/hr. 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 Moves left UE and LE spontaneously. Does not withdraw right hand. MUSC: SCDs on bilateral lower extremities. Pedal pulses weak. Left foot cool to touch while right foot is warm. Procedures ORIF 04/21/17 Intubation 04/30/17 (Chuy Camacho MD R1) Urinary Catheter: Yes (in/out caths as required) (Chuy Camacho MD R1) A/P Assessment and Plan 76 y/o female with HTN, DM, CVA admitted for DKA and hip fracture. Sadly, patients with hip fractures have other problems and have a high chance of fatal conditions near the time of their fractures. Hip fractures are often a marker for other frailty. Now with massive left MCA stroke, right hemiplegia and midline shift resolving. Neuro and airveyor operator consulted. Working with palliative care and daughter for goals of care. 05/07 CT abdomen/pelvis w/large pneumothorax on left side decompressed with chest tube. Chest tube pulled 05/12. Tracheostomy placed 05/15. PEG tube 05/16. -Overall poor prognosis, pursuing goals of care discussion with daughter (HCPOA) , but at this time daughter wishes continued intervention -05/09 - extensive discussion with daughter today indicates no willingness to pursue comfort measures only. Daughter continues to ask for aggressive management of her mother's condition; will continue to engage in this discussion -05/11--CXR w/bilateral pleural effusions vs pulmonary edema--diuresis ordered -05/14 -- little interval change. Wt down from 70 kg on 05/10 to 59kg today. CPAP trials progressing. Family meeting with daughter yielded no change in code status or goals of care. Plan is to re-join with discussing trach and PEG feeding tube with daughter in 2-3 days time. -05/15 -- Daughter consented to tracheostomy and procedure was performed today. CPAP trials still progressing. No other changes. -05/16 -- Tracheostomy in place, pt with eyes open today responding to simple commands. GI consulted with PEG tube planned for today. -05/17 - starting PEG tube feeds -05/18 - Glucerna 1.5 feed through PEG tube at 45ml/hr; changing moser out today (10 days); opens eyes but cannot track; does not respond to commands; still on Ancef IV for PEG and trach procedures. - 05/19 - no interval change in status. Wildland Firefighter to remove moser and rectal tube today. Pursuing movement to [facility]. -05/20 - no interval change, but she is increasing her stamina on CPAP trials to several hours now. In/out caths being placed for UOP. 05/21 no medicaid pending 05/22 - no interval change Discharge Planning Pending stroke progression and discussion for goals of care she has no Insurance. Medicaid was applied for which takes months and is often not approved in cases like this. she cannot go to a [facility] facility nor a SNF without Insurance. Case management explained that to her daughter (Chuy Camacho MD R1) Attending Attestation Patient seen and examined. Case reviewed and discussed with the resident team. Agree with plan of care as discussed with me and documented in the resident note. unfortunately any progress is very slow and incremental. she is trached and pegged. most people have an easier time breathing with a trach. appreciate help of palliative as she will not ever be able to care for herself or need less than total care (Dawn Guajardo MD) Problem List: (1) Acute CVA (cerebrovascular accident) ICD Codes: I63.9 - Cerebral infarction, unspecified Status: Acute Plan: Patient found minimally responsive with neurological deficits around 0820 04/24. Stat CT of head was ordered, which showed large left MCA infarct. Diffuse edema throughout the left MCA distribution, suggested completed infarct. This was discussed and was not a candidate for intracranial intervention. CT (04/30): Reduction in midline shift to 11mm. Unchanged large left MCA infarction. CT head (05/06) shows: Evolving large left-sided MCA territory infarct with minimally improved ymxa-jt-[id number] subfalcine shift. No intercurrent hemorrhage or other acute abnormality. Echocardiogram- The left ventricular systolic function is low normal with an estimated ejection fraction in the range of 50-55%. Mild concentric left ventricular hypertrophy. Normal left ventricular size. Eexit-uf-izus mitral valve regurgitation. Carotid Artery US- No hemodynamically significant carotid stenosis -Consulted airveyor operator, appreciate recs -s/p Tracheostomy 05/15 and PEG tube insertion 05/16 -change to fluid through PEG tube -Poor prognosis -Neurosurgery consulted -Recommended conservative management -Tube feeds: Glucerna 1.5 mLs for diet via PEG tube, starting at low dose now then will increase -Airport Maintenance Chief consulted for management and recs but will need to do maintenance fluids in the meantime until her PEG tube feeds are increased and she can change to water boluses in the PEG tube -Consulted palliative care-appreciate recs. appreciate help in talking to her daughter -Case discussed with daughter in-person about goals of care, limited treatment options, and poor prognosis.hope to be involved in future family discussions, have let palliative know this -Daughter continues to want aggressive care. Wishes to continue aggressive medical treatment despite prognosis -Neurology consulted-appreciate recs -Rectal ASA -Lovenox 40mg daily (2) On mechanically assisted ventilation ICD Codes: Z99.11 - Dependence on respirator [ventilator] status Plan: Impression: s/p trach procedure 05/15. Continues to fail CPAP trials, but is improving stamina gradually to tolerate it for longer periods; 35% FiO2 -Continue weaning trials as tolerated (3) Type 2 diabetes mellitus ICD Codes: E11.9 - Type 2 diabetes mellitus without complications Status: Chronic Plan: Admitted for DKA which has now resolved. Hemoglobin A1C is 12.9. Diabetes Type I is uncontrolled. -BG levels 149->238 over last 24 hours 05/21-05/22 -Medium dose insulin sliding scale with goal blood glucose between 140 and 180 -Glucerna for PEG tube feedings @ 45 ml/hr as per GI recs. as her PEG tube feeds have changed, she needs new insulin doses (4) Fluid overload ICD Codes: E87.70 - Fluid overload, unspecified Status: Acute Plan: Wildland Firefighter noted fluid overload and has been diuresing; pt's wt on 04/21 51.9 kg -->83.4kg on 05/07 --> 59.8 kg on 05/16 -Lasix IV bid will just give maintenance fluids. her right side is likely edematous as she has not moved at all. can consider elevation if desired. can also consider wrapping her limb if the fluid was more than a cosmetic problem (5) Elevated LFTs ICD Codes: R79.89 - Other specified abnormal findings of blood chemistry Plan: Impression: LFT elevations with alkaline phosphatase gradually rising from 351-1931 and AST rising from 50s to 217. Liver/biliary etiology expected as GGT 787. Gallbladder ultrasound obtained by airveyor operator 05/08; focally unremarkable in appearance of gallbladder -Incrementally resolving since chest tube placement -Alk Phos again rising to 1020 w/normal AST/ALT on 05/18 -Monitor at this time no one could do surgery on her as she is such a poor candidate (6) Sacral decubitus ulcer ICD Codes: L89.159 - Pressure ulcer of sacral region, unspecified stage Plan: Patient with beginnings of a sacral decubitus ulcer. -Wound care consult ordered and appreciated (7) Atrial fibrillation ICD Codes: I48.91 - Unspecified atrial fibrillation Status: Acute Plan: Hx of intermittent Afib. Resolved with administration of Lopressor. -Continue to monitor -Lopressor PRN (8) Hip fracture ICD Codes: S72.009A - Fracture of unspecified part of neck of unspecified femur , initial encounter for closed fracture Status: Acute Plan: S/P left hip reduction and intramedullary nail fixation on 04-21-17 -Consulted orthopedics-appreciate recs * WBAT * Daily dressing changes -Calcium/Vitamin D -Fluids as above -Tylenol, morphine PRN pain (9) Hypertension ICD Codes: I10 - Essential (primary) hypertension Status: Acute Plan: IV hydration. BPs wnl overnight -Antihypertensives to keep SBP<180 -Lasix or Bumex for diuresis as required (10) Fluids, Electrolytes, and Nutrition Status: Acute Plan: Fluids: IVF as above Electrolyte: on electrolyte protocol Nutrition: Glucerna tube feeds DVT ppx: SCDs/lovenox 40 mg daily GI ppx: protonix Colace, fleet enema mineral oil (Chuy Camacho MD R1) Problem Qualifiers (1) Type 2 diabetes mellitus: Qualified Codes: E11.9 - Type 2 diabetes mellitus without complications (2) Fluid overload: Qualified Codes: E87.79 - Other fluid overload (3) Sacral decubitus ulcer: Qualified Codes: L89.151 - Pressure ulcer of sacral region, stage 1 (4) Atrial fibrillation: Qualified Codes: I48.0 - Paroxysmal atrial fibrillation (5) Hip fracture: (6) Hypertension: Qualified Codes: I10 - Essential (primary) hypertension Chuy Camacho MD R1 May 22, 2017 09:37 Dawn Guajardo MD May 23, 2017 15:58
[2017-05-22 10:22] LABS: HEMATOCRIT 28.6 % (35.0-46.0); HEMOGLOBIN 9.4 GM/DL (11.6-15.3); MEAN CORPUSCULAR HEMOGLOBIN 32.4 PG (27.0-34.0); MEAN CORPUSCULAR HGB CONC 33.1 % (32.0-36.0); MEAN PLATELET VOLUME 8.3 FL (7.0-11.0); PLATELET COUNT 453 TH/MM3 (150-450); RED BLOOD COUNT 2.91 MIL/MM3 (4.00-5.30); RED CELL DISTRIBUTION WIDTH 18.3 % (11.6-17.2); WHITE BLOOD COUNT 10.1 TH/MM3 (4.0-11.0)
[2017-05-22 10:51] LABS: BICARBONATE 31.8 MEQ/L (21.0-32.0); CALCIUM 7.9 MG/DL (8.5-10.1); CREATININE 0.32 MG/DL (0.50-1.00)
--- NOTE | 2017-05-22 12:25 | HHI.NSPN ---
(Rene Reed) History Chief Complaint: Unable to obtain due to the patient's clinical condition. 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 05/03/2017: Remains intubated. Minimal eye opening to sternal rub. Grasps left hand good strength to command. 05/06: Patient continues to be intubated and off any sedation. She had a repeat CT brain this morning which demonstrated an evolving large left-sided MCA territory infarct with minimal improvement in the tfyi-jn-dxwva subfalcine shift. 05/07/17: Remains intubated. Awake and relatively alert. Minimally disconjugate left gaze and response to voice. Moves left upper and lower extremity well to command. CPAP trials 05/08: Patient still is intubated and is on pressure controlled ventilation. She is not on any sedation and arouses to noxious stimulation. The patient was noted to have a left-sided pneumothorax on her chest x-ray yesterday and the Gore Cutter placed a tube thoracostomy. 05/09: The patient is awake and fairly alert when seen. She does interact readily. The left-sided tube thoracostomy remains in place. 05/10: The patient remains intubated and mechanically ventilated. Initially the patient had her eyes closed but did follow commands. A few minutes later she was noted to have her eyes open without any stimulation. 05/11: This morning the patient is noted to have her eyes open and does appear to look about the room. She does follow commands. She remains intubated and mechanically ventilated. 05/13: When seen the patient is intubated without any sedation. She does not open her eyes to any stimulation and it is questionable whether she did follow the command to squeeze with the left hand. The left-sided tube thoracostomy has been removed since the patient was last seen. 05/15: The patient was trached earlier today. She briefly had her eyes open in response to her daughter's voice but quickly drifts back off to sleep. 05/19: This morning the patient is awake. She remains trached and mechanically ventilated. She is noted to spontaneously move the left hand and left foot. Since last seen the patient has had a PEG placed. 05/22: The patient remains trached and mechanically ventilated. (Rene Reed) System Review Comments Unable to obtain due to the patient's clinical condition. (Rene Reed) Exam Results 05/20/17 05/20/17 05/21/17 05/21/17 05/22/17 05/22/17 06:00 18:00 06:00 18:00 06:00 18:00 Intake Total 512 ml 482 ml 545 ml 466 ml 542 ml Output Total 361 ml 803 ml 611 ml 903 ml 602 ml Balance 151 ml -321 ml -66 ml -437 ml -60 ml IV Total 0 ml Tube Feeding 452 ml 432 ml 485 ml 466 ml 442 ml Other 60 ml 50 ml 60 ml 100 ml Output Urine Total 360 ml 800 ml 610 ml 900 ml 600 ml Stool Total 1 ml 3 ml 1 ml 3 ml 2 ml Vital Signs Date Time Temp Pulse Resp B/P (MAP) Pulse Ox O2 Delivery O2 Flow Rate FiO2 05/22/17 11:35 100 35 05/22/17 10:40 98 T-piece 40 05/22/17 10:10 35 05/22/17 10:00 79 05/22/17 08:48 100 35 05/22/17 08:00 97.1 87 14 160/89 (112) 100 05/22/17 08:00 86 05/22/17 08:00 40 05/22/17 07:00 100 Mechanical Ventilator 14.00 40 05/22/17 06:00 75 05/22/17 04:02 100 40 05/22/17 04:00 98.5 73 14 151/69 (96) 100 05/22/17 04:00 73 05/22/17 04:00 40 05/22/17 02:00 76 05/22/17 01:02 100 40 05/22/17 00:00 80 05/22/17 00:00 35 05/22/17 00:00 98.2 82 21 163/75 (104) 100 05/21/17 22:00 84 05/21/17 20:44 92 30 05/21/17 20:00 98.2 83 22 175/86 (115) 97 05/21/17 20:00 83 05/21/17 20:00 35 05/21/17 19:00 98 Mechanical Ventilator 35 05/21/17 18:00 77 05/21/17 16:00 79 05/21/17 16:00 97.6 79 22 128/66 (86) 98 05/21/17 16:00 35 05/21/17 15:47 94 30 05/21/17 14:00 73 05/21/17 12:00 98.8 77 21 135/67 (89) 98 05/21/17 12:00 35 05/21/17 12:00 72 05/21/17 11:30 96 30 05/21/17 10:00 79 05/21/17 08:00 84 05/21/17 08:00 35 05/21/17 08:00 99.0 83 16 123/59 (80) 97 05/21/17 07:53 98 30 05/21/17 07:53 30 05/21/17 07:00 98 Mechanical Ventilator 35 05/21/17 06:00 86 05/21/17 04:28 98 30 05/21/17 04:00 80 05/21/17 04:00 98.5 80 14 156/76 (102) 100 05/21/17 04:00 30 05/21/17 02:00 73 05/21/17 00:48 99 30 05/21/17 00:00 79 05/21/17 00:00 98.5 79 14 149/70 (96) 99 05/21/17 00:00 30 05/20/17 22:00 72 05/20/17 20:19 100 30 05/20/17 20:00 98.1 70 14 143/67 (92) 100 05/20/17 20:00 30 05/20/17 20:00 70 05/20/17 19:00 99 Mechanical Ventilator 35 05/20/17 18:00 74 05/20/17 16:00 35 05/20/17 16:00 98.2 79 22 132/71 (91) 99 05/20/17 16:00 80 05/20/17 15:43 98 35 05/20/17 14:00 75 05/20/17 12:18 100 35 05/20/17 12:16 35 05/20/17 12:00 35 05/20/17 12:00 73 05/20/17 12:00 98.0 95 14 123/61 (81) 99 05/20/17 10:00 92 05/20/17 08:00 35 05/20/17 08:00 76 05/20/17 08:00 97.9 76 22 148/71 (96) 98 05/20/17 07:24 98 35 05/20/17 07:00 99 Mechanical Ventilator 35 05/20/17 06:00 78 05/20/17 04:53 98 35 05/20/17 04:00 35 05/20/17 04:00 81 05/20/17 04:00 98.3 81 18 163/78 (106) 97 05/20/17 02:00 72 05/20/17 00:58 95 35 05/20/17 00:00 35 05/20/17 00:00 98.6 72 20 124/61 (82) 98 05/20/17 00:00 72 05/19/17 22:00 74 05/19/17 20:42 98 35 05/19/17 20:00 80 05/19/17 20:00 35 05/19/17 20:00 99.8 80 24 129/60 (83) 99 05/19/17 19:00 98 Mechanical Ventilator 35 05/19/17 18:00 84 05/19/17 16:00 35 05/19/17 16:00 99.7 80 28 106/55 (72) 99 05/19/17 16:00 80 05/19/17 14:00 80 (Rene Reed) Physical Examination GENERAL: Obtunded, trached, w/o any sedation. No apparent distress. SKIN: Cool & dry w/generalised dependent edema, w/o any evident rashes, ulcerations or lesions. HEENT: Normocephalic, atraumatic. Pupils appear round, equal & reactive but patient resists left pupil being assessed. NECK: No JVD, trachea midline. Tracheostomy. CARDIOVASCULAR: S1S2 w/RRR w/o M/G/R, radial 2+ & pedal pulses 1+ bilaterally, cap refill < 2 sec, generalised dependent edema. Monitor appears to be sinus rhythm w/o any ectopy noted. RESPIRATORY: Coarse bilaterally, equal excursion, nonlaboured, trached and on pressure controlled ventilation. GASTROINTESTINAL: Abdomen soft, appears nontender, positive bowel sounds. PEG tube w/enteral feeds. MUSCULOSKELETAL: No evident deformity or clubbing. NEUROLOGICAL: Trached w/o any sedation. GCS 7T (E2 V1T M4). Partial eye opening to noxious stimulation. Pupils appear round, equal & reactive but patient resists left pupil being assessed. Withdrew left hand to local noxious stimulation, no response with RUE or BLE. (Rene Reed) Lab, Micro, Other Results Laboratory Tests Test 05/20/17 08:39 05/22/17 09:35 White Blood Count 9.3 TH/MM3 10.1 TH/MM3 Red Blood Count 2.79 MIL/MM3 2.91 MIL/MM3 Hemoglobin 8.7 GM/DL 9.4 GM/DL Hematocrit 27.2 % 28.6 % Mean Corpuscular Volume 97.5 FL 98.0 FL Mean Corpuscular Hemoglobin 31.2 PG 32.4 PG Mean Corpuscular Hemoglobin Concent 32.0 % 33.1 % Red Cell Distribution Width 18.0 % 18.3 % Platelet Count 458 TH/MM3 453 TH/MM3 Mean Platelet Volume 8.0 FL 8.3 FL Potassium Level 4.2 MEQ/L 4.4 MEQ/L Blood Urea Nitrogen 32 MG/DL Creatinine 0.32 MG/DL Random Glucose 163 MG/DL Calcium Level 7.9 MG/DL Sodium Level 142 MEQ/L Chloride Level 106 MEQ/L Carbon Dioxide Level 31.8 MEQ/L Anion Gap 4 MEQ/L Estimat Glomerular Filtration Rate 202 ML/MIN (Rene Reed) Medical Decision Making Impression and Plan Impression: 1. Large left MCA CVA 2. Persistent right hemiplegia 3. Aspiration pneumonia 4. Hypoxic respiratory failure Sodium 142 this morning. Poor neurological response, withdraws left hand to local noxious stimulation with partial eye opening. Plan: Primary management per Gore Cutter. Frequent neuro checks. Continue ventilatory support. Okay for Lovenox from neurosurgical standpoint. Will follow intermittently while in the hospital. (Rene Reed) Attending Statement The exam, history, and the medical decision-making described in the above note were completed with the assistance of the mid-level provider. I reviewed and agree with the findings presented. I attest that I had a wdgo-wo-aoxa encounter with the patient on the same day, and personally performed and documented my assessment and findings in the medical record. Patient remains relatively alert on my examination on 05/22/17. Persistent right hemiparesis. Follows commands well on the left. Follow-up CT scan head 05/15/17 revealed relatively stable left MCA CVA with approximately 5 mm midline shift. Recent laboratory results reviewed. She is stable from neurosurgical standpoint. No neurosurgical intervention anticipated at this point. Hemorrhagic transformation is unlikely at this time. She may be placed on antiplatelet agents or anticoagulation from a neurosurgical standpoint. We will sign off. Please reconsult if further problems arise (Parker López MD) Rene Reed May 22, 2017 12:25 Parker López MD May 23, 2017 17:49
--- NOTE | 2017-05-22 13:07 | HHI.CCPN ---
Subjective Remarks/Hospital Course 04/24: 76-year-old female with a medical history significant for prior stroke, diabetes mellitus who was admitted with DKA and a hip fracture for which she underwent ORIF on 04/21. Patient developed altered mental status and was last noted to be okay around 5:30 AM. Subsequently there was a change in her mental status and she was noted to not be moving her right side for which stroke alert was called. Head CT showed large left MCA territory ischemic infarct with edema. Patient was transferred to the ICU by family medicine service in the critical care consult was requested. I evaluated the patient following arrival to the ICU. At that time she was laying in bed with her eyes open however not following commands and had a dense right hemiplegia. Patient was also evaluated by Dr. Malave from neurology. I further discussed current event with patient's daughter following her arrival to the ICU. Per the daughter patient has been living with her since her stroke in 2014 and does ambulate however has been having problems with memory and incontinence as well as gait difficulties. She does not feel patient would want intubation or tracheostomy or PEG tube. 04/25: Patient remains encephalopathic, awake though not following commands consistently. Dense right hemiplegia persists. Appears to be awake enough to protect airway currently. Patient's daughter rescinded DNR and made a full code last evening. 04/26: Remains encephalopathic, not following commands. On Dobbhoff for tube feeds at 30 cc per hour. Had urinary retention and drained 2 L of urine after placing Moser catheter today. CT head done this morning with large left MCA territory infarct with left to right midline shift and significant cerebral edema. Hyperglycemia noted. Patient given mannitol earlier for increasing cerebral edema. 04/27: Remains encephalopathic, not following commands. On Dobbhoff tube feeds at 30 cc per hour. When into A. fib with RVR last night which responded with Lopressor 5 mg IV 1 dose. 04/28: Remains encephalopathic, arousable, not following commands. Moves left upper extremity spontaneously. Tolerating Dobbhoff tube feeds. Remains on nasal cannula. 04/29: Encephalopathic, eyes be arousable, moves left upper extremity spontaneously and occasionally opens eyes. Dense right hemiplegia and aphasia persists. On nasal cannula. Dobbhoff tube feeds being advanced. Patient was transfused 1 unit PRBCs yesterday. Urine culture with yeast from yesterday for which fluconazole being started. Had brief run of A. fib with RVR which improved with Lopressor IV, currently in sinus rhythm. 04/30: Worsening hypoxemic respiratory failure, currently on partial nonrebreather. Remains lethargic. WBC count increased from 14.6 today 20.7. Chest x-ray shows bilateral worsening infiltrates and small pleural effusions. Sodium 154, weight up by 8 KG. Albumin 1 mg Bumex 1. Also one dose of albumin. Remains in sinus tachycardia. Tmax 101.3 05/01: Patient was intubated yesterday for lack of airway protection, and severe hypoxemic respiratory failure from aspiration pneumonia involving multiple lobes. Patient is on the vent lethargic, no spontaneous eye opening. Chest x- ray remains unchanged. Remains intermittently febrile Tmax 101.3. WBC count improving 05/02: Remains critically ill with no improvement in mental status. Spiking fever of 101.7. Blood culture and sputum culture with staph aureus sputum also growing GNR, WBC count 22,000 now indicating worsening sepsis. Daughter still requesting aggressive care. Palliative care is following 05/03: S/P large area dominant hemisphere CVA. No neurological improvement. Now with pneumonia (infiltrate, fever, leukocytosis) and appropriate abx coverage. She will have a hard time surviving the hip fx, CVA, and pneumonia. Palliative Care needs to be a mainstay of our plan. 05/04: No improvement in neuro status. Sputum C&S allows us to narrow abx coverage to levaquin alone. Lungs remain quite congested. Enteral nutrition tolerated. 05/05: No improvement in neuro status. Moves left arm spontaneously. Flaccid right side. Unresponsive. Persistent mild hypoglycemia - will cut Levemir 50%. Abdomen more distended, check KUB. 05/06: CT head with massive left MCA infarction and > 1 cm shift in right handed woman. She opens eyes, does not track. 05/07: Patient open eyes. Attempts to respond. Nigerien speaking. Tolerating tube feeds. Positive bowel movement. Volume overloaded. 05/08: Tmax 99.4. Potassium being replaced. Ultrasound gallbladder currently pending. Transaminases are trending downward. Gently diurese. 05/09: Alk phos decreasing. Remains with good urine output. Neurological status not improving. 05/10: Fixed neuro deficit unchanged. Profound CVA. 05/11: Appears to track with eyes today. No improvement in motor function. Remains very edematous, diuretics doubled. 05/12: Continued thick secretions. Afebrile, leukocytosis resolved. 05/13: CT head with completed left MCA stroke, persistent edema and 5 mm shift away. Does not last long on SBTs - major decision now is trach/PEG. 05/14: Daughter has decided to proceed with trach and PEG. I have been pessimistic with her about chances for a meaningful recovery. 05/15: Plan for trach today. No change in neuro status. Still ventilator dependent. 05/16: Trach completed. Await PEG and disposition. 05/17: PEG placed 05/16. Start TFs today after nutrition consult. Work to place patient. 05/18: No improvement. Does open eyes, no focus or tracking. Completed large dominant (left) hemisphere CVA in right handed woman with severe deficit. Medicaid pending status, [employer] is following. 05/19: no improvements in neuro exam. ready for LTAC. will d/c moser and rectal tubes. Subjective 05/20: no changes or improvements. very difficult placement due to patient not [place] citizen. 05/21: no improvements. resting on vent overnight due to distress. 05/22: no neurologic changes. no improvements. attempted T-piece which failed after 10 minutes. Objective Vital Signs Date Time Temp Pulse Resp B/P (MAP) Pulse Ox O2 Delivery O2 Flow Rate FiO2 05/22/17 12:00 75 05/22/17 12:00 98.0 14 116/62 (80) 99 05/22/17 12:00 35 05/22/17 10:40 T-piece 05/22/17 07:00 14.00 Intake and Output 05/22/17 05/22/17 05/22/17 07:59 15:59 23:59 Intake Total 542 ml Output Total 602 ml Balance -60 ml Result Diagram: 05/22/17 0905/22/17 09 Imaging Last Impressions Chest X-Ray 05/07/17 0400 Signed Impressions: Service Date/Time: Sunday, May 07, 2017 04:38 - CONCLUSION: 1. Stable Low-lying ETT with tip approximately 1 cm above the valerie. 2. Mild interval progression of bilateral airspace consolidation exaggerated by patient rotation. 3. Increased small left pleural effusion. Alejo De La Vega MD Abdomen/Pelvis CT 05/07/17 0000 Signed Impressions: Service Date/Time: Sunday, May 07, 2017 13:23 - CONCLUSION: 1. Large left pneumothorax. 2. Bilateral lower lobe consolidation and bilateral moderate size pleural effusions. 3. Significant soft tissue thickening of the right lateral chest wall and left gluteus muscle. 4. Mild ascites. The findings were called to Dr. Carney. Deangelo Zamora MD Head CT 05/06/17 0000 Signed Impressions: Service Date/Time: Saturday, May 06, 2017 04:18 - CONCLUSION: 1. Evolving large left-sided MCA territory infarct with minimally improved [id number] subfalcine shift. 2. No intercurrent hemorrhage or other acute abnormality. Alejo De La Vega MD Abdomen X-Ray 05/06/17 0000 Signed Impressions: Service Date/Time: Saturday, May 06, 2017 17:42 - CONCLUSION: Dobbhoff feeding tube tip near the gastroduodenal junction. Obdulio Simms MD Hip and Pelvis X-Ray 05/05/17 0000 Signed Impressions: Service Date/Time: Friday, May 05, 2017 10:59 - CONCLUSION: Left proximal femur trochanteric/subtrochanteric fracture lucency visualized. Postoperative changes. Choco Mustafa MD Chest CT 04/30/17 0000 Signed Impressions: Service Date/Time: Sunday, April 30, 2017 09:20 - CONCLUSION: 1. Bilateral pulmonary infiltrates more pronounced within the lower lobes with tiny bilateral pleural effusions. Material seen filling the lower lobe bronchi bilaterally either related to purulent material or perhaps mucus plugging. Deangelo Wren Jr., MD Carotid Artery Ultrasound 04/24/17 0000 Signed Impressions: Service Date/Time: April 09:45 - CONCLUSION: 1. No hemodynamically significant carotid artery stenosis. Arnie Middleton MD Hip X-Ray 04/21/17 0000 Signed Impressions: Service Date/Time: Friday, April 21, 2017 11:36 - CONCLUSION: Fluoroscopic images during placement of intramedullary siomara left femur. Benja Ramsey MD Objective Remarks Gen: 76-year-old female HEENT: nc. at. perrl. mucous membranes moist. Neck: trached. Chest/pulmonary: unlabored. on ventilator. Cardiovascular: RRR. GI/abdomen: Distended. Nontender. Extremities: Warm bilaterally, anasarca 2+ upper and 2+ lower extremity edema. Incision sites over left hip, thigh ORIF site clean dry and intact. Neuro: Intubated, on no sedation. Has eye opening and grimaces spontaneously. Dense right hemiplegia noted. Withdraws left upper extremity, Withdraws LLE. No change. Pupils 2 mm, react. A/P Assessment and Plan Neuro/Psych: Left MCA CVA - 12 mm of [id number] subfalcine herniation - right-sided hemiplegia Acute encephalopathy History CVA Follow neuro status closely. Continue Aspirin 325 mg by mouth daily Patient was not a candidate for thrombolysis per discussion with neurology and radiology. Repeat head CT 05/05 showed slight improvement in the midline shift and mass effect Neurosurgery consulted 04/30- Dr. López, recommended conservative management Neurology following - Dr. Malave Cardiovascular: Hypertension IV fluids currently on hold due to edema As needed Antihypertensives to keep systolic blood pressure less than to 180 mmHg Echocardiogram 04/24 - EF 50 to 55%. Mild concentric LVH. Pulmonary: Acute hypoxic respiratory failure - aspiration possible HCAP Large left pneumothorax status post #10 Divehi chest tube 05/07 Ventilator bundle Ipratropium/albuterol aerosols every 6 hours with albuterol aerosols every 2 hours Chest tube d/c'd 05/12 Daily SBTs. failing for tachypnea. will continue trials daily. GI/liver: Elevated transaminases Hypoalbuminemia Moderate to severe protein calorie malnutrition Dobbhoff for tube feedings and medications. Continue tube feeding with Glucerna 1.5 goal 45 cc an hour\ Lansoprazole 30 mg daily for GI regimen Docusate sodium 100 twice a day, Senokot 8.6 twice a day, polyethylene glycol 17 grams twice a day and lactulose 30 cc 4 times a day Evaluate CT abdomen/pelvis 05/07 - mild ascites. Large left hemothorax. Right greater than left pleural effusion. Avoid hepatotoxic drugs LFTs improving Alk Phos elevated again 05/18. continue fiber in diet. Endocrine: Diabetes mellitus Detemir 8 units subcutaneous daily. SSI high dose q4h. Holding glimepiride 4 mg by mouth daily /Renal/FEN: Hypopotassemia Strict intake output, monitor and replete electrolytes, follow BUN/creatinine. Moser catheter placed for urinary retention on 04/26. Moser removed 05/19 with q6h straight cath. Heme: Chronic Rivaroxaban use Leukocytosis Normocytic anemia Thrombocytosis Follow CBC and coags. On subcutaneous enoxaparin Hemoglobin currently stable. No indications for transfusion of blood proximally at this time ID: MSSA bacteremia Serratia/staph aureus pneumonia C glabrata UTI Pertinent cultures Urine culture 04/26/17 sofie glabrata Blood culture 04/29/17 1 out of 4 bottles staph aureus Sputum culture 04/30/17 staph aureus and Serratia. Blood cultures 2, sputum 1 and urine 05/08 pending -> Serratia, treated. off abx. MSK: Left Intertroch Hip Fx s/p IMN Vitamin D deficiency Prophylaxis: SCDs. Enoxaparin 40 mg sq daily-cleared by Dr. Ananda SANDS - lansoprazole Overall impression: Devastating CVA. No improvement. poor prognosis. very difficult wean given age, comorbidities and deconditioning. PEG placed. No change in neuro status. Medicaid pending for placement. Anuj Heaton MD May 22, 2017 13:07
--- NOTE | 2017-05-22 13:25 | HHI.HCPN ---
Reason for visit a. To assist with evaluation and management of symptoms including: Debility and pain. b. To assist medical decision maker(s) with: better understanding of current medical conditions; weighing benefits/burdens of medical treatment options; making medical treatment decisions. . Subjective/Interval History Mrs. Hein date a 76-year-old female with a past medical history of hypertension , diabetes mellitus and CVA who presented to the ED on 04/20/17 via EMS for evaluation of after a fall. Upon ED admission, random glucose 559. Patient underwent Left hip reduction and intramedullary nail fixation on 04/21/17. Clinical course complicated by large left MCA infarct with diffuse edema throughout the left MCA distribution. Neurology, Dr. Malave consulted. Patient not a candidate for intervention, not a candidate for IV TPA. As per neurology "Christina 4Id the prognosis with a stroke of the size is poor". Palliative care consulted for further clarifications of goals of care given poor prognosis. Patient remains in ICU, s/p tracheostomy and PEG tube placement. Patient to call her earlier today, tolerated approximately 15 minutes as per bedside nurse. She was placed back to full ventilator support -FiO2 35%, respiratory therapy at bedside. Patient remains minimally responsive to verbal or tactile stimuli during my visit, eyes open but not tracking or following any commands. Laboratory workup today revealing WBC 10.1, Hgb is stable and 9.4, platelet count 453. BUN/creatinine 32/0.32. Albumin 1.4. Patient afebrile, stable hemodynamically. Case discussed with bedside RN and keycase assembler Doris Enriquez. . Family/friend interactions Telephone conversation with patient's daughter Trice. Reviewed no significant changes in patient's neurological status. Reviewed overall poor prognosis given severe stroke, chronic ongoing comorbidities, malnutrition with albumin 1.4, profound physical deconditioning and advanced age. Reviewed continuation of aggressive management vs transitioning patient to comfort-directed care. Hospice philosophy and benefits reintroduced. Daughter verbalized an wishing to continue aggressive management to include full code. Hospice referral declined. . Advance Directives Living Will: Never completed Health Care Surrogate: Never completed Durable Power of Heavy Equipment Sales Manager: Never completed Advance Directive Specifics Health Care Surrogate(s): No advance directives completed. As per [place] statute, healthcare proxy decision making falls to patient's only daughter Norma Salvador. . Documented care wishes: No living will completed. . Significant change in goals: Full code. Continue full aggressive management. . Objective Vital Signs Date Time Temp Pulse Resp B/P (MAP) Pulse Ox O2 Delivery O2 Flow Rate FiO2 05/22/17 12:00 75 05/22/17 12:00 98.0 75 14 116/62 (80) 99 05/22/17 12:00 35 05/22/17 11:35 100 35 05/22/17 10:40 98 T-piece 40 05/22/17 10:10 35 05/22/17 10:00 79 05/22/17 08:48 100 35 05/22/17 08:00 97.1 87 14 160/89 (112) 100 05/22/17 08:00 86 05/22/17 08:00 40 05/22/17 07:00 100 Mechanical Ventilator 14.00 40 05/22/17 06:00 75 05/22/17 04:02 100 40 05/22/17 04:00 98.5 73 14 151/69 (96) 100 05/22/17 04:00 73 05/22/17 04:00 40 05/22/17 02:00 76 05/22/17 01:02 100 40 05/22/17 00:00 80 05/22/17 00:00 35 05/22/17 00:00 98.2 82 21 163/75 (104) 100 05/21/17 22:00 84 05/21/17 20:44 92 30 05/21/17 20:00 98.2 83 22 175/86 (115) 97 05/21/17 20:00 83 05/21/17 20:00 35 05/21/17 19:00 98 Mechanical Ventilator 35 05/21/17 18:00 77 05/21/17 16:00 79 05/21/17 16:00 97.6 79 22 128/66 (86) 98 05/21/17 16:00 35 05/21/17 15:47 94 30 05/21/17 14:00 73 Intake & Output 05/22/17 05/22/17 07:00 19:00 Intake Total 542 ml Output Total 602 ml Balance -60 ml IV Total 0 ml Tube Feeding 442 ml Other 100 ml Output Urine Total 600 ml Stool Total 2 ml Physical Exam CONSTITUTIONAL/GENERAL: This is an elderly female resting in bed. Minimally responsive to verbal or tactile stimuli. Not sedated. TUBES/LINES/DRAINS: PIV's. Tracheostomy, PEG tube, left soft wrist restraint. SKIN: No jaundice, rashes, or lesions. Ecchymoses on upper extremities. Skin temperature appropriate. Not diaphoretic. Surgical incision to left hip, open to air. HEAD: Atraumatic. Normocephalic. EYES: Pupils equal and round and reactive. No scleral icterus. No injection or drainage. ENT: Unable to evaluate hearing secondary to clinical condition. Nose without bleeding or purulent drainage. Moist oral mucosa. NECK: Trachea midline. Supple. Tracheostomy in place. CARDIOVASCULAR: Regular rate and rhythm. Peripheral pulses symmetric. RESPIRATORY/CHEST: Symmetric, tracheostomy. Coarse breath sounds. GASTROINTESTINAL: Abdomen soft, round, mildly distended. Bowel sounds present. PEG tube in place. GENITOURINARY: Without palpable bladder distension. MUSCULOSKELETAL: Extremities without clubbing, cyanosis. Edema to all 4 extremities. Right hand worse than left hand. NEUROLOGICAL: Minimally responsive to verbal or tactile stimuli. Not sedated. Opening eyes, not tracking. Not following commands. PSYCHIATRIC: Unable to evaluate secondary to clinical condition. Appears calm. . Diagnostic Tests Laboratory Laboratory Tests Test 05/20/17 08:39 05/22/17 09:35 White Blood Count 9.3 TH/MM3 (4.0-11.0) 10.1 TH/MM3 (4.0-11.0) Red Blood Count 2.79 MIL/MM3 (4.00-5.30) 2.91 MIL/MM3 (4.00-5.30) Hemoglobin 8.7 GM/DL (11.6-15.3) 9.4 GM/DL (11.6-15.3) Hematocrit 27.2 % (35.0-46.0) 28.6 % (35.0-46.0) Mean Corpuscular Volume 97.5 FL (80.0-100.0) 98.0 FL (80.0-100.0) Mean Corpuscular Hemoglobin 31.2 PG (27.0-34.0) 32.4 PG (27.0-34.0) Mean Corpuscular Hemoglobin Concent 32.0 % (32.0-36.0) 33.1 % (32.0-36.0) Red Cell Distribution Width 18.0 % (11.6-17.2) 18.3 % (11.6-17.2) Platelet Count 458 TH/MM3 (150-450) 453 TH/MM3 (150-450) Mean Platelet Volume 8.0 FL (7.0-11.0) 8.3 FL (7.0-11.0) Potassium Level 4.2 MEQ/L (3.5-5.1) 4.4 MEQ/L (3.5-5.1) Blood Urea Nitrogen 32 MG/DL (7-18) Creatinine 0.32 MG/DL (0.50-1.00) Random Glucose 163 MG/DL (74-106) Calcium Level 7.9 MG/DL (8.5-10.1) Sodium Level 142 MEQ/L (136-145) Chloride Level 106 MEQ/L (98-107) Carbon Dioxide Level 31.8 MEQ/L (21.0-32.0) Anion Gap 4 MEQ/L (5-15) Estimat Glomerular Filtration Rate 202 ML/MIN (>89) Result Diagram: 05/22/17 0935 05/22/17 0935 Procedures * 05/16/17 -PEG tube placement * 05/15/17 -tracheostomy placement * 05/08/17 -left-sided chest tube/pigtail * 04/30/17 -endotracheal intubation * 04/21/17 -Left hip reduction and intramedullary nail fixation . Assessment and Plan Disease Oriented Problem List: (1) Acute respiratory failure (2) Acute CVA (cerebrovascular accident) (3) Pneumonia (4) Atrial fibrillation with RVR (5) Hypertension (6) Hip fracture Symptom Scale: (1) Pain 0-10 Scale: Unable to quantify Comment: Secondary to recent surgical intervention (2) Debility 0-10 Scale: Unable to quantify Comment: Progressive. (3) Shortness of breath 0-10 Scale: Unable to quantify Comment: Currently intubated on mechanical ventilation Pertinent Non-Medical Issues Psychosocial: Patient is originally from [place]. Residing in [place] up until 2013 she moved to [place] to live with only daughter Trice. Patient is a , in 2006. Spiritual: No restorationism affiliation. Legal: No advance directives completed. Ethical issues impacting care: Patient unable to participating in medical decision-making secondary to clinical condition. Patient's daughter acting as healthcare proxy decision maker. . Important Contacts Daughter Norma Salvador . . Prognosis Mrs. Hein needs a 76-year-old female with a past medical history of hypertension, diabetes mellitus and prior CVA. Presented with left hip fracture , underwent ORIF. Clinical course complicated by large left MCA infarct with edema. Overall prognosis is poor for a meaningful neurological recovery or long -term survival given acute stroke, chronic ongoing comorbidities and advanced age. Patient appears hospice appropriate should family elects comfort-directed care. . Code Status: Full Code Plan * CODE STATUS: FULL CODE. Code status readdressed 05/22/17. Discussed risks, benefits and limitations of CPR given patient's clinical condition and poor prognosis. Patient's daughter electing full code. * HEALTHCARE DECISION-MAKING: Patient unable to participate in medical decision- making secondary to clinical condition given severe large stroke. No advance directives completed, patient is . As per [place] statute, healthcare proxy decision-making falls to patient's only daughter Trice Salvador. * GOALS OF CARE: 05/22/17 -Patient's daughter electing to continue aggressive management to include full code. Reviewed with daughter no improvement in patient's neurological status. Reviewed overall poor prognosis given severe stroke, chronic ongoing comorbidities, malnutrition with albumin 1.4, profound physical deconditioning and advanced age. Reviewed continuation of aggressive management vs transitioning patient to comfort-directed care. Hospice philosophy and benefits reintroduced. Daughter electing to continue aggressive management to include full code. Hospice referral declined by daughter. * SYMPTOMS: = Shortness of breath, multifactorial. Secondary to altered mental status/CVA, pneumonia, lethargy. Intubated and placed on mechanical ventilation. Daughter electing to proceed with tracheostomy placement. = Pain , secondary to recent surgical intervention. Morphine IV available as needed. none given since 04/30/17. = Debility, progressive. Likely to continue to worsen given recent acute stroke and additional complications. * Case has been discussed with keycase assembler Doris Enriquez and bedside RN Herberth. Difficult disposition, long-term plans for this patient are impacted by her psychosocial situation, no coverage/no payer source for long-term placement or rehab. Daughter verbalized inability to receive patient at home. Encouraged daughter to collaborate with case management for long-term placement options. * Ongoing emotional support and active listening provided. * Palliative care contact information has been provided to patient's daughter. * Palliative care will continue to follow-up for further clarifications of goals of care as patient's clinical condition continues to evolve. . Time Spent Total Floor Time (mins): 48 (Total time to include review medical records, physical exam, telephone conversation of goals of care with patient's daughter, case discussion with keycase assembler and bedside RN.) Attestation To help prompt me to consider important information that might be impacting today's encounter and assessment, information from prior notes written by myself or my colleagues may have been "brought forward" into today's note. My signature on this note, however, is an attestation that I personally performed the exam, history, and/or decision-making noted today, and, unless otherwise indicated, the interactions with patient, family, and staff as well as the review of records all occurred today. I also attest that the listed assessment and stated plan reflect my best clinical judgment today based on the combination of historical information, prior notes, and today's exam/ interactions. When time spent is documented, it refers only to time spent today by the signer, or if indicated, combined time spent today by collaborating physician/nurse practitioner. Ashly Steven May 22, 2017 13:25
[2017-05-22] MEDS: DEXTROSE 50% IN WATER 50 ML SYRINGE IV PUSH PRN (17:12)
[2017-05-23] VITALS (17 sets, daily range): BP systolic 119–155; BP diastolic 59–70; PULSE 70–113; RESP 13–22; TEMP 97.6–98.7; O2SAT 93–100
--- NOTE | 2017-05-23 03:23 | HHI.CCPN ---
Subjective Remarks/Hospital Course 04/24: 76-year-old female with a medical history significant for prior stroke, diabetes mellitus who was admitted with DKA and a hip fracture for which she underwent ORIF on 04/21. Patient developed altered mental status and was last noted to be okay around 5:30 AM. Subsequently there was a change in her mental status and she was noted to not be moving her right side for which stroke alert was called. Head CT showed large left MCA territory ischemic infarct with edema. Patient was transferred to the ICU by family medicine service in the critical care consult was requested. I evaluated the patient following arrival to the ICU. At that time she was laying in bed with her eyes open however not following commands and had a dense right hemiplegia. Patient was also evaluated by Dr. Malave from neurology. I further discussed current event with patient's daughter following her arrival to the ICU. Per the daughter patient has been living with her since her stroke in 2014 and does ambulate however has been having problems with memory and incontinence as well as gait difficulties. She does not feel patient would want intubation or tracheostomy or PEG tube. 04/25: Patient remains encephalopathic, awake though not following commands consistently. Dense right hemiplegia persists. Appears to be awake enough to protect airway currently. Patient's daughter rescinded DNR and made a full code last evening. 04/26: Remains encephalopathic, not following commands. On Dobbhoff for tube feeds at 30 cc per hour. Had urinary retention and drained 2 L of urine after placing Moser catheter today. CT head done this morning with large left MCA territory infarct with left to right midline shift and significant cerebral edema. Hyperglycemia noted. Patient given mannitol earlier for increasing cerebral edema. 04/27: Remains encephalopathic, not following commands. On Dobbhoff tube feeds at 30 cc per hour. When into A. fib with RVR last night which responded with Lopressor 5 mg IV 1 dose. 04/28: Remains encephalopathic, arousable, not following commands. Moves left upper extremity spontaneously. Tolerating Dobbhoff tube feeds. Remains on nasal cannula. 04/29: Encephalopathic, eyes be arousable, moves left upper extremity spontaneously and occasionally opens eyes. Dense right hemiplegia and aphasia persists. On nasal cannula. Dobbhoff tube feeds being advanced. Patient was transfused 1 unit PRBCs yesterday. Urine culture with yeast from yesterday for which fluconazole being started. Had brief run of A. fib with RVR which improved with Lopressor IV, currently in sinus rhythm. 04/30: Worsening hypoxemic respiratory failure, currently on partial nonrebreather. Remains lethargic. WBC count increased from 14.6 today 20.7. Chest x-ray shows bilateral worsening infiltrates and small pleural effusions. Sodium 154, weight up by 8 KG. Albumin 1 mg Bumex 1. Also one dose of albumin. Remains in sinus tachycardia. Tmax 101.3 05/01: Patient was intubated yesterday for lack of airway protection, and severe hypoxemic respiratory failure from aspiration pneumonia involving multiple lobes. Patient is on the vent lethargic, no spontaneous eye opening. Chest x- ray remains unchanged. Remains intermittently febrile Tmax 101.3. WBC count improving 05/02: Remains critically ill with no improvement in mental status. Spiking fever of 101.7. Blood culture and sputum culture with staph aureus sputum also growing GNR, WBC count 22,000 now indicating worsening sepsis. Daughter still requesting aggressive care. Palliative care is following 05/03: S/P large area dominant hemisphere CVA. No neurological improvement. Now with pneumonia (infiltrate, fever, leukocytosis) and appropriate abx coverage. She will have a hard time surviving the hip fx, CVA, and pneumonia. Palliative Care needs to be a mainstay of our plan. 05/04: No improvement in neuro status. Sputum C&S allows us to narrow abx coverage to levaquin alone. Lungs remain quite congested. Enteral nutrition tolerated. 05/05: No improvement in neuro status. Moves left arm spontaneously. Flaccid right side. Unresponsive. Persistent mild hypoglycemia - will cut Levemir 50%. Abdomen more distended, check KUB. 05/06: CT head with massive left MCA infarction and > 1 cm shift in right handed woman. She opens eyes, does not track. 05/07: Patient open eyes. Attempts to respond. Greenlandic speaking. Tolerating tube feeds. Positive bowel movement. Volume overloaded. 05/08: Tmax 99.4. Potassium being replaced. Ultrasound gallbladder currently pending. Transaminases are trending downward. Gently diurese. 05/09: Alk phos decreasing. Remains with good urine output. Neurological status not improving. 05/10: Fixed neuro deficit unchanged. Profound CVA. 05/11: Appears to track with eyes today. No improvement in motor function. Remains very edematous, diuretics doubled. 05/12: Continued thick secretions. Afebrile, leukocytosis resolved. 05/13: CT head with completed left MCA stroke, persistent edema and 5 mm shift away. Does not last long on SBTs - major decision now is trach/PEG. 05/14: Daughter has decided to proceed with trach and PEG. I have been pessimistic with her about chances for a meaningful recovery. 05/15: Plan for trach today. No change in neuro status. Still ventilator dependent. 05/16: Trach completed. Await PEG and disposition. 05/17: PEG placed 05/16. Start TFs today after nutrition consult. Work to place patient. 05/18: No improvement. Does open eyes, no focus or tracking. Completed large dominant (left) hemisphere CVA in right handed woman with severe deficit. Medicaid pending status, [employer] is following. 05/19: no improvements in neuro exam. ready for LTAC. will d/c moser and rectal tubes. 05/20: no changes or improvements. very difficult placement due to patient not [place] citizen. 05/21: no improvements. resting on vent overnight due to distress. 05/22: no neurologic changes. no improvements. attempted T-piece which failed after 10 minutes. Subjective 05/23: no improvements. poor prognosis. poor neuro exam. still failing weaning trials. Objective Vital Signs Date Time Temp Pulse Resp B/P (MAP) Pulse Ox O2 Delivery O2 Flow Rate FiO2 05/23/17 02:00 113 05/23/17 01:02 96 40 05/23/17 00:00 98.0 22 119/59 (79) 05/22/17 19:00 Mechanical Ventilator 05/22/17 07:00 14.00 Result Diagram: 05/22/17 0935 05/22/17 0935 Imaging Last Impressions Chest X-Ray 05/07/17 0400 Signed Impressions: Service Date/Time: Sunday, May 07, 2017 04:38 - CONCLUSION: 1. Stable Low-lying ETT with tip approximately 1 cm above the valerie. 2. Mild interval progression of bilateral airspace consolidation exaggerated by patient rotation. 3. Increased small left pleural effusion. Alejo De La Vega MD Abdomen/Pelvis CT 05/07/17 0000 Signed Impressions: Service Date/Time: Sunday, May 07, 2017 13:23 - CONCLUSION: 1. Large left pneumothorax. 2. Bilateral lower lobe consolidation and bilateral moderate size pleural effusions. 3. Significant soft tissue thickening of the right lateral chest wall and left gluteus muscle. 4. Mild ascites. The findings were called to Dr. Carney. Deangelo Zamora MD Head CT 05/06/17 0000 Signed Impressions: Service Date/Time: Saturday, May 06, 2017 04:18 - CONCLUSION: 1. Evolving large left-sided MCA territory infarct with minimally improved [id number] subfalcine shift. 2. No intercurrent hemorrhage or other acute abnormality. Alejo De La Vega MD Abdomen X-Ray 05/06/17 0000 Signed Impressions: Service Date/Time: Saturday, May 06, 2017 17:42 - CONCLUSION: Dobbhoff feeding tube tip near the gastroduodenal junction. Obdulio Simms MD Hip and Pelvis X-Ray 05/05/17 0000 Signed Impressions: Service Date/Time: Friday, May 05, 2017 10:59 - CONCLUSION: Left proximal femur trochanteric/subtrochanteric fracture lucency visualized. Postoperative changes. Choco Mustafa MD Chest CT 04/30/17 0000 Signed Impressions: Service Date/Time: Sunday, April 30, 2017 09:20 - CONCLUSION: 1. Bilateral pulmonary infiltrates more pronounced within the lower lobes with tiny bilateral pleural effusions. Material seen filling the lower lobe bronchi bilaterally either related to purulent material or perhaps mucus plugging. Deangelo Wren Jr., MD Carotid Artery Ultrasound 04/24/17 0000 Signed Impressions: Service Date/Time: April 09:45 - CONCLUSION: 1. No hemodynamically significant carotid artery stenosis. Arnie Middleton MD Hip X-Ray 04/21/17 0000 Signed Impressions: Service Date/Time: Friday, April 21, 2017 11:36 - CONCLUSION: Fluoroscopic images during placement of intramedullary siomara left femur. Benja Ramsey MD Objective Remarks Gen: 76-year-old female HEENT: nc. at. perrl. mucous membranes moist. Neck: trached. Chest/pulmonary: unlabored. on ventilator. Cardiovascular: RRR. GI/abdomen: Distended. Nontender. Extremities: Warm bilaterally, anasarca 2+ upper and 2+ lower extremity edema. Incision sites over left hip, thigh ORIF site clean dry and intact. Neuro: Intubated, on no sedation. Has eye opening and grimaces spontaneously. Dense right hemiplegia noted. Withdraws left upper extremity, Withdraws LLE. No change. Pupils 2 mm, react. A/P Assessment and Plan Neuro/Psych: Left MCA CVA - 12 mm of [id number] subfalcine herniation - right-sided hemiplegia Acute encephalopathy History CVA Follow neuro status closely. Continue Aspirin 325 mg by mouth daily Patient was not a candidate for thrombolysis per discussion with neurology and radiology. Repeat head CT 05/05 showed slight improvement in the midline shift and mass effect Neurosurgery consulted 04/30- Dr. López, recommended conservative management Neurology following - Dr. Malave Cardiovascular: Hypertension IV fluids currently on hold due to edema As needed Antihypertensives to keep systolic blood pressure less than to 180 mmHg Echocardiogram 04/24 - EF 50 to 55%. Mild concentric LVH. Pulmonary: Acute hypoxic respiratory failure - aspiration possible HCAP Large left pneumothorax status post #10 Micronesian chest tube 05/07 Ventilator bundle Ipratropium/albuterol aerosols every 6 hours with albuterol aerosols every 2 hours Chest tube d/c'd 05/12 Daily SBTs. failing for tachypnea. will continue trials daily. GI/liver: Elevated transaminases Hypoalbuminemia Moderate to severe protein calorie malnutrition Dobbhoff for tube feedings and medications. Continue tube feeding with Glucerna 1.5 goal 45 cc an hour\ Lansoprazole 30 mg daily for GI regimen Docusate sodium 100 twice a day, Senokot 8.6 twice a day, polyethylene glycol 17 grams twice a day and lactulose 30 cc 4 times a day Evaluate CT abdomen/pelvis 05/07 - mild ascites. Large left hemothorax. Right greater than left pleural effusion. Avoid hepatotoxic drugs LFTs improving Alk Phos elevated again 05/18. continue fiber in diet. Endocrine: Diabetes mellitus Detemir 8 units subcutaneous daily. SSI high dose q4h. Holding glimepiride 4 mg by mouth daily /Renal/FEN: Hypopotassemia Strict intake output, monitor and replete electrolytes, follow BUN/creatinine. Moser catheter placed for urinary retention on 04/26. Moser removed 05/19 with q6h straight cath. Heme: Chronic Rivaroxaban use Leukocytosis Normocytic anemia Thrombocytosis Follow CBC and coags. On subcutaneous enoxaparin Hemoglobin currently stable. No indications for transfusion of blood proximally at this time ID: MSSA bacteremia Serratia/staph aureus pneumonia C glabrata UTI Pertinent cultures Urine culture 04/26/17 sofie glabrata Blood culture 04/29/17 1 out of 4 bottles staph aureus Sputum culture 04/30/17 staph aureus and Serratia. Blood cultures 2, sputum 1 and urine 05/08 pending -> Serratia, treated. off abx. MSK: Left Intertroch Hip Fx s/p IMN Vitamin D deficiency Prophylaxis: SCDs. Enoxaparin 40 mg sq daily-cleared by Dr. Malave GI - lansoprazole Overall impression: Devastating CVA. No improvement. poor prognosis. very difficult wean given age, comorbidities and deconditioning. PEG placed. No change in neuro status. Medicaid pending for placement. Anuj Heaton MD May 23, 2017 03:23
[2017-05-23 05:43] LABS: HEMATOCRIT 26.6 % (35.0-46.0); HEMOGLOBIN 8.6 GM/DL (11.6-15.3); MEAN CELL VOLUME 96.5 FL (80.0-100.0); MEAN CORPUSCULAR HEMOGLOBIN 31.2 PG (27.0-34.0); MEAN CORPUSCULAR HGB CONC 32.3 % (32.0-36.0); MEAN PLATELET VOLUME 7.7 FL (7.0-11.0); PLATELET COUNT 465 TH/MM3 (150-450); RED BLOOD COUNT 2.76 MIL/MM3 (4.00-5.30); RED CELL DISTRIBUTION WIDTH 17.9 % (11.6-17.2); WHITE BLOOD COUNT 10.8 TH/MM3 (4.0-11.0)
[2017-05-23 06:07] LABS: BICARBONATE 33.9 MEQ/L (21.0-32.0); CALCIUM 7.8 MG/DL (8.5-10.1); CREATININE 0.23 MG/DL (0.50-1.00)
[2017-05-23] MEDS: INSULIN ASPART SUPPLEMENTAL SCALE SQ SCH ×4 (08:59→21:00)
[2017-05-23] MEDS: INSULIN DETEMIR 100 UNITS/ML VIAL SQ SCH ×2 (09:00→23:14)
[2017-05-23] MEDS: DOCUSATE SODIUM 100 MG/10 ML UDC PO SCH ×2 (09:00→21:00)
[2017-05-23] MEDS: SODIUM CHLORIDE 0.9% FLUSH 5 ML FLUSH IV FLUSH SCH ×2 (09:00→21:00)
[2017-05-23] MEDS: BENEPROTEIN POWDER 1 PACK G-TUBE SCH ×3 (09:00→16:57)
[2017-05-23] MEDS: ASPIRIN 325 MG TAB DOBHOFF SCH (09:11)
[2017-05-23] MEDS: FUROSEMIDE 40 MG/5 ML UNIT DOSE CUP NG SCH (09:11)
[2017-05-23] MEDS: LANSOPRAZOLE SOLUTAB 30 MG TAB NG SCH (09:11)
[2017-05-23] MEDS: CHOLECALCIFEROL (VIT D3) 5000 UNIT CAP PO SCH (09:12)
[2017-05-23] MEDS: CALCIUM/VITAMIN D 250 MG/125 U TAB PO SCH ×3 (09:12→16:57)
--- NOTE | 2017-05-23 12:58 | PD.WCN.NOT ---
Wound Consult Description: Patient seen for follow up of DTI opening to Partial thickness skin loss over coccyx Communicated with: GREGORY Padilla Recommendation: 1.Please cleanse buttock, coccyx, and sacral areas gently with soap and water and apply thick layer of Calazime barrier cream BID and PRN and leave wound open to air for now. 2. Order pressure relieving support surface mattress or bed such as halifax airapy or K-4 bed from [facility]. 3. Continue to turn patient every 2 hours or PRN for comfort. Please do not put thick cloth underpads under patient for turning purposes. Please use flat turn sheet and ultra sorb pads for incontinence management. Additional Information: Patient seen for follow up of DTI opening to partial thickness skin loss to coccyx. Positioned patient to R side with assistance of Valerie JENKINS ISC for wound assessment.Patinet is laying on ultra sorb pad with thick cloth pad under neath Cleansed coccyx with normal saline and pat dry to reveal full thickness open wound to L medial buttock next to coccyx. Wound is small with ~20% pink tissue and ~80% yellow/ white tissue. Wound measures 0.5cm x 1cm x ~0.2cm.Macerated loose skin is noted to 3o'clock periwound, right over coccyx. Per GREGORY Padilla patient is having constant small loose stools. Do not recommend covering wound at this time due to constant stools.Cleansed patient of loosel stool. Applied thick layer of barrier cream and left open to air.Removed thick cloth pad and soiled ultrasorb pad. New ultrasorb pad applied under patient on top of thin flat turning sheet. Patient positioned off bottom with support of pillow. Head of bed elevated to 30 degrees before resuming tube feed Agatha Hudson [facility] May 23, 2017 12:58
--- NOTE | 2017-05-23 13:45 | HHI.FPPN ---
Subjective Remarks Ms Melvina had no acute events overnight. Patient continues still to extend endurance on CPAP trials to overnight; however, still requires vent. She has not opened eyes today on CPAP. CPAP trials appear to acutely fatigue patient. Revenue Cycle Analyst performed trial of T-tube on trach off of CPAP yesterday; however, pt was taking shallow breaths/not breathing deeply enough to sustain, so effort was discontinued. Will trial T-tube again today. Continues to be incontinent of stool and require in/out caths. Wound care nurse saw pt for small sacral decub ulcer. Otherwise, little interval change. (Chuy Camacho MD R1) Objective Vitals Vital Signs Date Time Temp Pulse Resp B/P (MAP) Pulse Ox O2 Delivery O2 Flow Rate FiO2 05/23/17 12:00 97.8 70 13 120/59 (79) 99 05/23/17 12:00 40 05/23/17 12:00 70 05/23/17 10:00 75 05/23/17 08:11 96 40 05/23/17 08:00 80 05/23/17 08:00 97.6 80 20 143/64 (90) 100 05/23/17 08:00 40 05/23/17 07:00 100 Mechanical Ventilator 40 05/23/17 06:00 84 05/23/17 04:02 100 40 05/23/17 04:00 77 05/23/17 04:00 40 05/23/17 04:00 97.9 78 20 133/60 (84) 100 05/23/17 02:00 113 05/23/17 01:02 96 40 05/23/17 00:00 98.0 80 22 119/59 (79) 96 05/23/17 00:00 40 05/23/17 00:00 80 05/22/17 22:00 81 05/22/17 20:00 40 05/22/17 20:00 97.8 81 13 165/77 (106) 100 05/22/17 20:00 83 05/22/17 19:35 100 40 05/22/17 19:00 100 Mechanical Ventilator 40 05/22/17 18:00 75 05/22/17 16:42 100 40 05/22/17 16:09 40 05/22/17 16:00 76 05/22/17 16:00 96.9 76 19 161/74 (103) 98 9/21/17 14:08 90 35 05/22/17 14:00 35 05/22/17 14:00 75 I/O 05/22/17 05/22/17 05/22/17 05/23/17 05/23/17 05/23/17 07:00 15:00 23:00 07:00 15:00 23:00 Intake Total 542 ml 556 ml 689 ml Output Total 602 ml 1100 ml 550 ml Balance -60 ml -544 ml 139 ml IV Total 0 ml Tube Feeding 442 ml 456 ml 489 ml Other 100 ml 100 ml 200 ml Output Urine Total 600 ml 1100 ml 550 ml Stool Total 2 ml # Bowel Movements 3 6 (Chuy Camacho MD R1) Result Diagram: 05/23/1751605/23/17516 Objective Remarks CONSTITUTIONAL/GEN: Nonverbal, lying in bed with tracheostomy and PEG tubes in place. Patient's eyes are closed today and unrousable with sternal rub; pt appears to look fatigued while on CPAP trial. HEAD: Normocephalic. Atraumatic. Right side facial droop less prominent today. LUNGS: Tracheostomy on the vent @ 97% sp O2 FiO2 40. Coarse breath sounds bilaterally but moving air well CARDIOVASCULAR: Regular rate and rhythm. Lower extremity bilateral pitting edema to thighs. Bilateral hands puffy with 2+pitting edema. Right arm with some skin breakdown healing and no weeping. GI/ABD: normal BS w/o guarding or rebound. no grimacing with palpation. Glucerna 1.5 tube feed @ 45ml/hr. Abdominal distention less prominent now. 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 Moves left UE and LE spontaneously. Does not withdraw right hand. MUSC: SCDs on bilateral lower extremities. Pedal pulses weak. Left foot cool to touch while right foot is warm. SKIN: Sacral pressure ulcer extends from anus to coccyx. Procedures ORIF 04/21/17 Intubation 04/30/17 Medications and IVs Current Medications Medications (Trade) Dose Ordered Sig/Zeferino Route Start Time Stop Time Status Last Admin (Zofran Inj) 4 mg Q6H PRN IV PUSH 04/20/17 15:00 04/30/17 02:28 (Narcan Inj) 0.4 mg UNSCH PRN IV 04/20/17 17:15 (Milk Of Magnesia Liq) 30 ml Q12H PRN PO 04/20/17 20:30 (Dulcolax Supp) 10 mg DAILY PRN RECTAL 04/20/17 20:30 (Oscal-D 250-125) 250 mg TID PO 04/21/17 13:00 05/23/17 12:14 (Vitamin D3) 5,000 units DAILY PO 04/22/17 09:00 05/23/17 09:12 (NS Flush) 2 ml BID IV FLUSH 04/24/17 21:00 05/23/17 09:00 (NS Flush) 2 ml UNSCH PRN IV FLUSH 04/24/17 09:30 (Aspirin) 325 mg DAILY DOBHOFF 04/27/17 09:00 05/23/17 09:11 (Lopressor Inj) 5 mg Q5M PRN IV PUSH 04/27/17 04:00 05/03/17 18:26 Potassium Chloride 100 ml @ 50 mls/hr Q2H PRN IV 04/27/17 08:45 Potassium Chloride 100 ml @ 50 mls/hr Q2H PRN IV 04/27/17 08:45 05/18/17 10:41 (K-Lyte Cl Eff) 50 meq UNSCH PRN PO 04/27/17 08:45 Potassium Chloride 100 ml @ 25 mls/hr UNSCH PRN IV 04/27/17 08:45 05/04/17 19:07 Potassium Chloride 100 ml @ 50 mls/hr Q2H PRN IV 04/27/17 08:45 05/18/17 08:29 Magnesium Sulfate 4 gm/Sodium Chloride 100 ml @ 50 mls/hr UNSCH PRN IV 04/27/17 08:45 (Mag-Ox) 800 mg UNSCH PRN PO 04/27/17 08:45 Magnesium Sulfate 2 gm/Sodium Chloride 100 ml @ 50 mls/hr UNSCH PRN IV 04/27/17 08:45 (K-Phos) 2,000 mg Q4H PRN PO 04/27/17 08:45 04/28/17 15:38 Sodium Phosphate 30 mmol/Sodium Chloride 250 ml @ 42 mls/hr UNSCH PRN IV 04/27/17 08:45 04/27/17 23:59 (K-Phos) 2,000 mg UNSCH PRN PO/TUBE 04/27/17 08:45 05/08/17 06:32 Potassium Phosphate 30 mmol/ Sodium Chloride 260 ml @ 42 mls/hr UNSCH PRN IV 04/27/17 08:45 05/04/17 20:54 (Lovenox Inj) 40 mg Q24H SQ 05/01/17 08:00 Future Hold 05/14/17 09:55 (Colace Liq) 100 mg Q12HR PO 05/07/17 21:00 05/19/17 20:00 (Albuterol Neb) 2.5 mg Q2HR NEB PRN NEB 05/07/17 13:00 05/14/17 08:36 (Prevacid Odt) 30 mg DAILY NG 05/08/17 09:00 05/23/17 09:11 (Beneprotein Powder) 1 pack TID G-TUBE 05/12/17 13:00 05/23/17 12:13 (Lasix Liq) 40 mg DAILY NG 05/19/17 09:00 05/23/17 09:11 (Glucagon Inj) 1 mg UNSCH PRN OTHER 05/21/17 13:15 (NovoLOG SUPPLEMENTAL SCALE) 1 ACHS SLIDING SCALE SQ 05/21/17 17:00 05/23/17 12:00 (D50w (Syr) Inj) 50 ml UNSCH PRN IV PUSH 05/22/17 17:15 05/22/17 17:12 (Levemir Inj) 5 units Q12H SQ 05/22/17 21:00 05/23/17 09:00 (Chuy Camacho MD R1) Urinary Catheter: Yes (serial in/out caths) (Chuy Camacho MD R1) A/P Assessment and Plan 76 y/o female with HTN, DM, CVA admitted for DKA and hip fracture. Sadly, patients with hip fractures have other problems and have a high chance of fatal conditions near the time of their fractures. Hip fractures are often a marker for other frailty. Now with massive left MCA stroke, right hemiplegia and midline shift resolving. Neuro and rig supervisor consulted. Working with palliative care and daughter for goals of care. 05/07 CT abdomen/pelvis w/large pneumothorax on left side decompressed with chest tube. Chest tube pulled 05/12. Tracheostomy placed 05/15. PEG tube 05/16. -Overall poor prognosis, pursuing goals of care discussion with daughter (HCPOA) , but at this time daughter wishes continued intervention -05/09 - extensive discussion with daughter today indicates no willingness to pursue comfort measures only. Daughter continues to ask for aggressive management of her mother's condition; will continue to engage in this discussion -05/11--CXR w/bilateral pleural effusions vs pulmonary edema--diuresis ordered -05/14 -- little interval change. Wt down from 70 kg on 05/10 to 59kg today. CPAP trials progressing. Family meeting with daughter yielded no change in code status or goals of care. Plan is to re-join with discussing trach and PEG feeding tube with daughter in 2-3 days time. -05/15 -- Daughter consented to tracheostomy and procedure was performed today. CPAP trials still progressing. No other changes. -05/16 -- Tracheostomy in place, pt with eyes open today responding to simple commands. GI consulted with PEG tube planned for today. -05/17 - starting PEG tube feeds -05/18 - Glucerna 1.5 feed through PEG tube at 45ml/hr; changing moser out today (10 days); opens eyes but cannot track; does not respond to commands; still on Ancef IV for PEG and trach procedures. - 05/19 - no interval change in status. Revenue Cycle Analyst to remove moser and rectal tube today. Pursuing movement to [facility]. -05/20 - no interval change, but she is increasing her stamina on CPAP trials to several hours now. In/out caths being placed for UOP. 05/21 no medicaid pending 05/22 - no interval change 05/23 - daughter still desires full code measures. Increasing endurance on CPAP trials; however, patient still requiring vent. CPAP trials appear to acutely fatigue pt. Revenue Cycle Analyst performing trial of T-tube off CPAP; pt failed this intervention yesterday as she was breathing too shallow. Discharge Planning Pending stroke progression and discussion for goals of care she has no Insurance. Medicaid was applied for which takes months and is often not approved in cases like this. she cannot go to a vent facility nor a SNF without Insurance. Case management explained that to her daughter (Chuy Camacho MD R1) Attending Attestation Patient seen and examined. Case reviewed and discussed with the resident team. Agree with plan of care as discussed with me and documented in the resident note. she is stable overall but in very poor condition as she cannot move her entire right side at all and is so weak she cannot even breathe independently let alone eat. (Dawn Guajardo MD) Problem List: (1) Acute CVA (cerebrovascular accident) ICD Codes: I63.9 - Cerebral infarction, unspecified Status: Acute Plan: Patient found minimally responsive with neurological deficits around 0820 04/24. Stat CT of head was ordered, which showed large left MCA infarct. Diffuse edema throughout the left MCA distribution, suggested completed infarct. This was discussed and was not a candidate for intracranial intervention. CT (04/30): Reduction in midline shift to 11mm. Unchanged large left MCA infarction. CT head (05/06) shows: Evolving large left-sided MCA territory infarct with minimally improved [id number] subfalcine shift. No intercurrent hemorrhage or other acute abnormality. Echocardiogram- The left ventricular systolic function is low normal with an estimated ejection fraction in the range of 50-55%. Mild concentric left ventricular hypertrophy. Normal left ventricular size. [id number] mitral valve regurgitation. Carotid Artery US- No hemodynamically significant carotid stenosis -Consulted rig supervisor, appreciate recs -s/p Tracheostomy 05/15 and PEG tube insertion 05/16 -change to fluid through PEG tube -Poor prognosis -Neurosurgery consulted -Recommended conservative management -Tube feeds: Glucerna 1.5 mLs for diet via PEG tube, starting at low dose now then will increase -Nitroglycerin Separator Operator consulted for management and recs but will need to do maintenance fluids in the meantime until her PEG tube feeds are increased and she can change to water boluses in the PEG tube -Consulted palliative care-appreciate recs. appreciate help in talking to her daughter -Case discussed with daughter in-person about goals of care, limited treatment options, and poor prognosis.hope to be involved in future family discussions, have let palliative know this -Daughter continues to want aggressive care. Wishes to continue aggressive medical treatment despite prognosis -Neurology consulted-appreciate recs -Rectal ASA -Lovenox 40mg daily (2) On mechanically assisted ventilation ICD Codes: Z99.11 - Dependence on respirator [ventilator] status Plan: Impression: s/p trach procedure 05/15. Continues to fail CPAP trials, but is improving stamina gradually to tolerate it for longer periods; 40% FiO2 -Continue weaning trials as tolerated -Revenue Cycle Analyst also trialing T-tube on trach off of CPAP mode, but pt was breathing too shallow; attempting again today (3) Type 2 diabetes mellitus ICD Codes: E11.9 - Type 2 diabetes mellitus without complications Status: Chronic Plan: Admitted for DKA which has now resolved. Hemoglobin A1C is 12.9. Diabetes Type I is uncontrolled. -05/22 - Started pt on Levemir 7 units AM + 7 units PM--received call at 8PM stating pt BG level at 60 and hypoglycemia protocol started; -Reduced Levemir to 5 units AM + 5 units PM--BG levels overnight in 120-193 range -Medium dose insulin sliding scale with goal blood glucose between 140 and 180 -Glucerna for PEG tube feedings @ 45 ml/hr as per GI recs. as her PEG tube feeds have changed, she needs new insulin doses (4) Fluid overload ICD Codes: E87.70 - Fluid overload, unspecified Status: Acute Plan: Revenue Cycle Analyst noted fluid overload and has been diuresing; pt's wt on 04/21 51.9 kg -->83.4kg on 05/07 --> 59.8 kg on 05/16 -Lasix IV 40 mg/day will just give maintenance fluids. her right side is likely edematous as she has not moved at all. can consider elevation if desired. can also consider wrapping her limb if the fluid was more than a cosmetic problem (5) Elevated LFTs ICD Codes: R79.89 - Other specified abnormal findings of blood chemistry Plan: Impression: LFT elevations with alkaline phosphatase gradually rising from 351-1931 and AST rising from 50s to 217. Liver/biliary etiology expected as GGT 787. Gallbladder ultrasound obtained by rig supervisor 05/08; focally unremarkable in appearance of gallbladder -Incrementally resolving since chest tube placement -Alk Phos again rising to 1020 w/normal AST/ALT on 05/18 -Monitor at this time no one could do surgery on her as she is such a poor candidate (6) Sacral decubitus ulcer ICD Codes: L89.159 - Pressure ulcer of sacral region, unspecified stage Plan: Patient with small sacral decubitus ulcer over the coccyx that appears to be worsening; wound care nurse saw today, ordered special air mattress and other interventions to improving healing -Wound care consult ordered and appreciated (7) Atrial fibrillation ICD Codes: I48.91 - Unspecified atrial fibrillation Status: Acute Plan: Hx of intermittent Afib. Resolved with administration of Lopressor. -Continue to monitor -Lopressor PRN (8) Hip fracture ICD Codes: S72.009A - Fracture of unspecified part of neck of unspecified femur , initial encounter for closed fracture Status: Acute Plan: S/P left hip reduction and intramedullary nail fixation on 04-21-17 -Consulted orthopedics-appreciate recs * WBAT * Daily dressing changes -Calcium/Vitamin D -Fluids as above -Tylenol, morphine PRN pain (9) Hypertension ICD Codes: I10 - Essential (primary) hypertension Status: Acute Plan: IV hydration. BPs wnl overnight -Antihypertensives to keep SBP<180 -Lasix or Bumex for diuresis as required (10) Fluids, Electrolytes, and Nutrition Status: Acute Plan: Fluids: IVF as above Electrolyte: on electrolyte protocol Nutrition: Glucerna tube feeds DVT ppx: SCDs/lovenox 40 mg daily CVA ppx: aspirin 325 mg GI ppx: protonix Colace, fleet enema mineral oil (Chuy Camacho MD R1) Problem Qualifiers (1) Type 2 diabetes mellitus: Qualified Codes: E11.9 - Type 2 diabetes mellitus without complications (2) Fluid overload: Qualified Codes: E87.79 - Other fluid overload (3) Sacral decubitus ulcer: Qualified Codes: L89.151 - Pressure ulcer of sacral region, stage 1 (4) Atrial fibrillation: Qualified Codes: I48.0 - Paroxysmal atrial fibrillation (5) Hip fracture: (6) Hypertension: Qualified Codes: I10 - Essential (primary) hypertension Chuy Camacho MD R1 May 23, 2017 13:45 Dawn Guajardo MD May 23, 2017 16:00
--- NOTE | 2017-05-23 15:02 | HHI.PR ---
Subjective Subjective Comments Patient resting comfortably in bed. Trach on vent. No sedation has been given per nursing Allergies: Coded Allergies: No Known Allergies (Unverified , 04/20/17) Review of Systems All other ROS: Unable to obtain Exam I&O / VS Vital Signs Date Time Temp Pulse Resp B/P (MAP) Pulse Ox O2 Delivery O2 Flow Rate FiO2 05/23/17 12:40 100 40 05/23/17 12:00 97.8 70 13 120/59 (79) 99 05/23/17 12:00 40 05/23/17 12:00 70 05/23/17 10:00 75 05/23/17 08:11 96 40 05/23/17 08:00 80 05/23/17 08:00 97.6 80 20 143/64 (90) 100 05/23/17 08:00 40 05/23/17 07:00 100 Mechanical Ventilator 40 05/23/17 06:00 84 05/23/17 04:02 100 40 05/23/17 04:00 77 05/23/17 04:00 40 05/23/17 04:00 97.9 78 20 133/60 (84) 100 05/23/17 02:00 113 05/23/17 01:02 96 40 05/23/17 00:00 98.0 80 22 119/59 (79) 96 05/23/17 00:00 40 05/23/17 00:00 80 05/22/17 22:00 81 05/22/17 20:00 40 05/22/17 20:00 97.8 81 13 165/77 (106) 100 05/22/17 20:00 83 05/22/17 19:35 100 40 05/22/17 19:00 100 Mechanical Ventilator 40 05/22/17 18:00 75 05/22/17 16:42 100 40 05/22/17 16:09 40 05/22/17 16:00 76 05/22/17 16:00 96.9 76 19 161/74 (103) 98 General: No acute distress, Other (trach on vent) Cardiovascular: Normal rate (Tachycardic) Musculoskeletal: ROM (within normal limits) Psychiatric: Other (No restlessness or agitation noted) Neurologic: Pupils (pupils reactive with left gaze preference), Speech ( nonverbal) Objective Micro and Labs Laboratory Tests Test 05/23/17 05:17 White Blood Count 10.8 Red Blood Count 2.76 Hemoglobin 8.6 Hematocrit 26.6 Mean Corpuscular Volume 96.5 Mean Corpuscular Hemoglobin 31.2 Mean Corpuscular Hemoglobin Concent 32.3 Red Cell Distribution Width 17.9 Platelet Count 465 Mean Platelet Volume 7.7 Blood Urea Nitrogen 30 Creatinine 0.23 Random Glucose 109 Calcium Level 7.8 Sodium Level 144 Potassium Level 4.1 Chloride Level 106 Carbon Dioxide Level 33.9 Anion Gap 4 Estimat Glomerular Filtration Rate 295 Date/Time Source Procedure Growth Status 05/08/17 04:44 Blood Peripheral Aerobic Blood Culture - Final NO GROWTH IN 5 DAYS Complete 05/08/17 04:44 Blood Peripheral Anaerobic Blood Culture - Final NO GROWTH IN 5 DAYS Complete 05/07/17 21:30 Sputum Endotracheal Gram Stain - Final Complete 05/07/17 21:30 Sputum Culture - Final Serratia Marcescens Complete 05/08/17 04:20 Urine Catheterized Urine Urine Culture - Final NO GROWTH IN 48 HOURS. Complete Assessment and Plan Diagnosis: (1) Acute ischemic left middle cerebral artery (MCA) stroke ICD Codes: I63.512 - Cerebral infarction due to unspecified occlusion or stenosis of left middle cerebral artery Status: Acute (2) Right hemiplegia ICD Codes: G81.91 - Hemiplegia, unspecified affecting right dominant side Status: Acute (3) Aphasia ICD Codes: R47.01 - Aphasia Status: Acute (4) Hip fracture ICD Codes: S72.009A - Fracture of unspecified part of neck of unspecified femur , initial encounter for closed fracture Status: Acute Qualifiers: Encounter type: subsequent encounter Fracture type: closed Laterality: left Assessment 1. Left middle cerebral artery stroke with right hemiplegia, aphasia and dysphagia. Hospital day #33. 2. Status post trach :currently with CPAP/T-tube trials for weaning 3. Status post PEG 4. Left intertrochanteric hip fracture status post IM nail 04/21/17 5. Diabetes mellitus with DKA on admission 6. Hypertension 7. Previous stroke Plan 1. Physical therapy providing range of motion. No functional progress noted to date 2. SCDs in place for DVT prophylaxis 3. Reposition q 2 hours and monitor skin integrity. Wound care is following sacral and coccygeal area 4. Palliative care following and case management is working with family on fdc care. 5. Will continue to follow while hospitalized and at discharge as appropriate Marychuy,Li C. MD May 23, 2017 15:02
--- NOTE | 2017-05-23 16:41 | HHI.HCPN ---
Reason for visit a. To assist with evaluation and management of symptoms including: Debility and pain. b. To assist medical decision maker(s) with: better understanding of current medical conditions; weighing benefits/burdens of medical treatment options; making medical treatment decisions. . (Navin Damico) Subjective/Interval History Mrs. Hein date a 76-year-old female with a past medical history of hypertension , diabetes mellitus and CVA who presented to the ED on 04/20/17 via EMS for evaluation of after a fall. Upon ED admission, random glucose 559. Patient underwent Left hip reduction and intramedullary nail fixation on 04/21/17. Clinical course complicated by large left MCA infarct with diffuse edema throughout the left MCA distribution. Neurology, Dr. Malave consulted. Patient not a candidate for intervention, not a candidate for IV TPA. As per neurology "Christina 4Id the prognosis with a stroke of the size is poor". Palliative care consulted for further clarifications of goals of care given poor prognosis. Patient seen in ICU, s/p tracheostomy and PEG tube placement. Patient remains on mechanical ventilation with vent settings CPAP 04/15/40%. No T-Avilez trials done today. Patient remains minimally responsive to any verbal or tactile stimulation. No eye opening today. Laboratory workup today revealing WBC 10.8, Hgb 8.6, Hct26.6, PLT 465, sodium 144, potassium 4.1, BUN/Creatinine 30/0.23, random glucose 109. Patient is afebrile. SBP 120s-140s. Case discussed with bedside RN and rifle case repairer Doris Enriquez. . (Navin Damico) Advance Directives Living Will: Never completed Health Care Surrogate: Never completed Durable Power of Supervisor Hand Workers: Never completed (Navin Damico) Advance Directive Specifics Health Care Surrogate(s): No advance directives completed. As per [place] statute, healthcare proxy decision making falls to patient's only daughter Norma Salvador. . Documented care wishes: No living will completed. . (Navin Damico) Objective Vital Signs Date Time Temp Pulse Resp B/P (MAP) Pulse Ox O2 Delivery O2 Flow Rate FiO2 05/23/17 14:00 81 05/23/17 12:40 100 40 05/23/17 12:00 97.8 70 13 120/59 (79) 99 05/23/17 12:00 40 05/23/17 12:00 70 05/23/17 10:00 75 05/23/17 08:11 96 40 05/23/17 08:00 80 05/23/17 08:00 97.6 80 20 143/64 (90) 100 05/23/17 08:00 40 05/23/17 07:00 100 Mechanical Ventilator 40 05/23/17 06:00 84 05/23/17 04:02 100 40 05/23/17 04:00 77 05/23/17 04:00 40 05/23/17 04:00 97.9 78 20 133/60 (84) 100 05/23/17 02:00 113 05/23/17 01:02 96 40 05/23/17 00:00 98.0 80 22 119/59 (79) 96 05/23/17 00:00 40 05/23/17 00:00 80 05/22/17 22:00 81 05/22/17 20:00 40 05/22/17 20:00 97.8 81 13 165/77 (106) 100 05/22/17 20:00 83 05/22/17 19:35 100 40 05/22/17 19:00 100 Mechanical Ventilator 40 05/22/17 18:00 75 05/22/17 16:42 100 40 05/22/17 16:09 40 Intake & Output 05/23/17 05/23/17 07:00 19:00 Intake Total 689 ml Output Total 550 ml Balance 139 ml Tube Feeding 489 ml Other 200 ml Output Urine Total 550 ml # Bowel Movements 6 Physical Exam CONSTITUTIONAL/GENERAL: This is an elderly female resting in bed. Minimally responsive to verbal or tactile stimuli. No eye opening today. Not sedated. TUBES/LINES/DRAINS: PIV's. Tracheostomy, PEG tube, left soft wrist restraint. SKIN: No jaundice, rashes, or lesions. Ecchymoses on upper extremities. Skin temperature appropriate. Not diaphoretic. Surgical incision to left hip, open to air. HEAD: Atraumatic. Normocephalic. EYES: Pupils equal and round and reactive. No scleral icterus. No injection or drainage. ENT: Unable to evaluate hearing secondary to clinical condition. Nose without bleeding or purulent drainage. Moist oral mucosa. NECK: Trachea midline. Supple. Tracheostomy in place. CARDIOVASCULAR: Regular rate and rhythm. Peripheral pulses symmetric. RESPIRATORY/CHEST: Symmetric, tracheostomy. Coarse breath sounds. GASTROINTESTINAL: Abdomen soft, round, mildly distended. Bowel sounds present. PEG tube in place. GENITOURINARY: Without palpable bladder distension. MUSCULOSKELETAL: Extremities without clubbing, cyanosis. Edema to all 4 extremities. Right hand worse than left hand. NEUROLOGICAL: Withdraws with LUE and LLE. Flaccid to right side. Not sedated. No eye opening. Not following commands. PSYCHIATRIC: Unable to evaluate secondary to clinical condition. Appears calm. . (Navin Damico) Diagnostic Tests Laboratory Laboratory Tests Test 05/22/17 09:35 05/23/17 05:17 White Blood Count 10.1 TH/MM3 (4.0-11.0) 10.8 TH/MM3 (4.0-11.0) Red Blood Count 2.91 MIL/MM3 (4.00-5.30) 2.76 MIL/MM3 (4.00-5.30) Hemoglobin 9.4 GM/DL (11.6-15.3) 8.6 GM/DL (11.6-15.3) Hematocrit 28.6 % (35.0-46.0) 26.6 % (35.0-46.0) Mean Corpuscular Volume 98.0 FL (80.0-100.0) 96.5 FL (80.0-100.0) Mean Corpuscular Hemoglobin 32.4 PG (27.0-34.0) 31.2 PG (27.0-34.0) Mean Corpuscular Hemoglobin Concent 33.1 % (32.0-36.0) 32.3 % (32.0-36.0) Red Cell Distribution Width 18.3 % (11.6-17.2) 17.9 % (11.6-17.2) Platelet Count 453 TH/MM3 (150-450) 465 TH/MM3 (150-450) Mean Platelet Volume 8.3 FL (7.0-11.0) 7.7 FL (7.0-11.0) Blood Urea Nitrogen 32 MG/DL (7-18) 30 MG/DL (7-18) Creatinine 0.32 MG/DL (0.50-1.00) 0.23 MG/DL (0.50-1.00) Random Glucose 163 MG/DL (74-106) 109 MG/DL (74-106) Calcium Level 7.9 MG/DL (8.5-10.1) 7.8 MG/DL (8.5-10.1) Sodium Level 142 MEQ/L (136-145) 144 MEQ/L (136-145) Potassium Level 4.4 MEQ/L (3.5-5.1) 4.1 MEQ/L (3.5-5.1) Chloride Level 106 MEQ/L (98-107) 106 MEQ/L (98-107) Carbon Dioxide Level 31.8 MEQ/L (21.0-32.0) 33.9 MEQ/L (21.0-32.0) Anion Gap 4 MEQ/L (5-15) 4 MEQ/L (5-15) Estimat Glomerular Filtration Rate 202 ML/MIN (>89) 295 ML/MIN (>89) (Navin Damico) Result Diagram: 05/23/17 0505/23/17 0517 Procedures * 05/16/17 -PEG tube placement * 05/15/17 -tracheostomy placement * 05/08/17 -left-sided chest tube/pigtail * 04/30/17 -endotracheal intubation * 04/21/17 -Left hip reduction and intramedullary nail fixation . (Navin Damico) Assessment and Plan Disease Oriented Problem List: (1) Acute respiratory failure (2) Acute CVA (cerebrovascular accident) (3) Pneumonia (4) Atrial fibrillation with RVR (5) Hypertension (6) Hip fracture Symptom Scale: (1) Pain 0-10 Scale: Unable to quantify Comment: Secondary to recent surgical intervention (2) Debility 0-10 Scale: Unable to quantify Comment: Progressive. (3) Shortness of breath 0-10 Scale: Unable to quantify Comment: Currently trached on mechanical ventilation. Failing T-Avilez trials. Pertinent Non-Medical Issues Psychosocial: Patient is originally from [place]. Residing in [place] up until 2013 she moved to [place] to live with only daughter Trice. Patient is a , in 2006. Spiritual: No jain affiliation. Legal: No advance directives completed. Ethical issues impacting care: Patient unable to participating in medical decision-making secondary to clinical condition. Patient's daughter acting as healthcare proxy decision maker. . Important Contacts Daughter Norma Salvador . . Prognosis Mrs. Hein needs a 76-year-old female with a past medical history of hypertension, diabetes mellitus and prior CVA. Presented with left hip fracture , underwent ORIF. Clinical course complicated by large left MCA infarct with edema. Overall prognosis is poor for a meaningful neurological recovery or long -term survival given acute stroke, chronic ongoing comorbidities and advanced age. Patient appears hospice appropriate should family elects comfort-directed care. . Code Status: Full Code Plan * CODE STATUS: FULL CODE. Code status readdressed 05/22/17. Discussed risks, benefits and limitations of CPR given patient's clinical condition and poor prognosis. Patient's daughter electing full code. * HEALTHCARE DECISION-MAKING: Patient unable to participate in medical decision- making secondary to clinical condition given severe large stroke. No advance directives completed, patient is . As per [place] statute, healthcare proxy decision-making falls to patient's only daughter Trice Salvador. * GOALS OF CARE: 05/23/17 -Patient's daughter electing to continue aggressive management to include full code. Case has been discussed with rifle case repairer Doris Enriquez and bedside RN. Difficult disposition, long-term plans for this patient are impacted by her psychosocial situation, no coverage/no payer source for long -term placement or rehab. Daughter verbalized inability to receive patient at home. Per discussion with case management, daughter has been contacted by [facility] Operations Specialist ([employer]) and informed that patient only qualifies for emergency Medicaid which only covers patient while hospitalized. Per Case management, " [facility] staff, management is aware of the situation and are following pt and her daughter and that pt is at this time still in need of medical care and not ready for d/c". * SYMPTOMS: = Shortness of breath, multifactorial. Secondary to altered mental status/CVA, pneumonia, lethargy. Now trached and on mechanical ventilation. Patient on CPAP, failing T-Avilez trials = Pain, secondary to recent surgical intervention. = Debility, progressive. Likely to continue to worsen given recent acute stroke and additional complications. * Palliative care contact information has been provided to patient's daughter. * Palliative care will continue to follow-up for further clarifications of goals of care as patient's clinical condition continues to evolve. . (Navin Damico) Code Status: Full Code Plan Evaluated patient in dual visit with ALANA Cleary, witnessed physical assessment. Agree with findings and assessment above. D/W Doris Engel CM and her management is now involved in assisting daughter in understanding options. As a non-citizen, she is not eligible for medicaid and cannot be placed in a facility. Daughter has previously declined hospice. (Sherri Gamboa) Attestation To help prompt me to consider important information that might be impacting today's encounter and assessment, information from prior notes written by myself or my colleagues may have been "brought forward" into today's note. My signature on this note, however, is an attestation that I personally performed the exam, history, and/or decision-making noted today, and, unless otherwise indicated, the interactions with patient, family, and staff as well as the review of records all occurred today. I also attest that the listed assessment and stated plan reflect my best clinical judgment today based on the combination of historical information, prior notes, and today's exam/ interactions. When time spent is documented, it refers only to time spent today by the signer, or if indicated, combined time spent today by collaborating physician/nurse practitioner. (Sherri Gamboa) Navin Damico May 23, 2017 16:41 Sherri Gamboa May 23, 2017 17:12
[2017-05-24] VITALS (19 sets, daily range): BP systolic 130–183; BP diastolic 62–87; PULSE 66–83; RESP 14–22; TEMP 97.8–98.5; O2SAT 95–100
--- NOTE | 2017-05-24 02:32 | HHI.CCPN ---
Subjective Remarks/Hospital Course 04/24: 76-year-old female with a medical history significant for prior stroke, diabetes mellitus who was admitted with DKA and a hip fracture for which she underwent ORIF on 04/21. Patient developed altered mental status and was last noted to be okay around 5:30 AM. Subsequently there was a change in her mental status and she was noted to not be moving her right side for which stroke alert was called. Head CT showed large left MCA territory ischemic infarct with edema. Patient was transferred to the ICU by family medicine service in the critical care consult was requested. I evaluated the patient following arrival to the ICU. At that time she was laying in bed with her eyes open however not following commands and had a dense right hemiplegia. Patient was also evaluated by Dr. Malave from neurology. I further discussed current event with patient's daughter following her arrival to the ICU. Per the daughter patient has been living with her since her stroke in 2014 and does ambulate however has been having problems with memory and incontinence as well as gait difficulties. She does not feel patient would want intubation or tracheostomy or PEG tube. 04/25: Patient remains encephalopathic, awake though not following commands consistently. Dense right hemiplegia persists. Appears to be awake enough to protect airway currently. Patient's daughter rescinded DNR and made a full code last evening. 04/26: Remains encephalopathic, not following commands. On Dobbhoff for tube feeds at 30 cc per hour. Had urinary retention and drained 2 L of urine after placing Moser catheter today. CT head done this morning with large left MCA territory infarct with left to right midline shift and significant cerebral edema. Hyperglycemia noted. Patient given mannitol earlier for increasing cerebral edema. 04/27: Remains encephalopathic, not following commands. On Dobbhoff tube feeds at 30 cc per hour. When into A. fib with RVR last night which responded with Lopressor 5 mg IV 1 dose. 04/28: Remains encephalopathic, arousable, not following commands. Moves left upper extremity spontaneously. Tolerating Dobbhoff tube feeds. Remains on nasal cannula. 04/29: Encephalopathic, eyes be arousable, moves left upper extremity spontaneously and occasionally opens eyes. Dense right hemiplegia and aphasia persists. On nasal cannula. Dobbhoff tube feeds being advanced. Patient was transfused 1 unit PRBCs yesterday. Urine culture with yeast from yesterday for which fluconazole being started. Had brief run of A. fib with RVR which improved with Lopressor IV, currently in sinus rhythm. 04/30: Worsening hypoxemic respiratory failure, currently on partial nonrebreather. Remains lethargic. WBC count increased from 14.6 today 20.7. Chest x-ray shows bilateral worsening infiltrates and small pleural effusions. Sodium 154, weight up by 8 KG. Albumin 1 mg Bumex 1. Also one dose of albumin. Remains in sinus tachycardia. Tmax 101.3 05/01: Patient was intubated yesterday for lack of airway protection, and severe hypoxemic respiratory failure from aspiration pneumonia involving multiple lobes. Patient is on the vent lethargic, no spontaneous eye opening. Chest x- ray remains unchanged. Remains intermittently febrile Tmax 101.3. WBC count improving 05/02: Remains critically ill with no improvement in mental status. Spiking fever of 101.7. Blood culture and sputum culture with staph aureus sputum also growing GNR, WBC count 22,000 now indicating worsening sepsis. Daughter still requesting aggressive care. Palliative care is following 05/03: S/P large area dominant hemisphere CVA. No neurological improvement. Now with pneumonia (infiltrate, fever, leukocytosis) and appropriate abx coverage. She will have a hard time surviving the hip fx, CVA, and pneumonia. Palliative Care needs to be a mainstay of our plan. 05/04: No improvement in neuro status. Sputum C&S allows us to narrow abx coverage to levaquin alone. Lungs remain quite congested. Enteral nutrition tolerated. 05/05: No improvement in neuro status. Moves left arm spontaneously. Flaccid right side. Unresponsive. Persistent mild hypoglycemia - will cut Levemir 50%. Abdomen more distended, check KUB. 05/06: CT head with massive left MCA infarction and > 1 cm shift in right handed woman. She opens eyes, does not track. 05/07: Patient open eyes. Attempts to respond. Dominican speaking. Tolerating tube feeds. Positive bowel movement. Volume overloaded. 05/08: Tmax 99.4. Potassium being replaced. Ultrasound gallbladder currently pending. Transaminases are trending downward. Gently diurese. 05/09: Alk phos decreasing. Remains with good urine output. Neurological status not improving. 05/10: Fixed neuro deficit unchanged. Profound CVA. 05/11: Appears to track with eyes today. No improvement in motor function. Remains very edematous, diuretics doubled. 05/12: Continued thick secretions. Afebrile, leukocytosis resolved. 05/13: CT head with completed left MCA stroke, persistent edema and 5 mm shift away. Does not last long on SBTs - major decision now is trach/PEG. 05/14: Daughter has decided to proceed with trach and PEG. I have been pessimistic with her about chances for a meaningful recovery. 05/15: Plan for trach today. No change in neuro status. Still ventilator dependent. 05/16: Trach completed. Await PEG and disposition. 05/17: PEG placed 05/16. Start TFs today after nutrition consult. Work to place patient. 05/18: No improvement. Does open eyes, no focus or tracking. Completed large dominant (left) hemisphere CVA in right handed woman with severe deficit. Medicaid pending status, [employer] is following. 05/19: no improvements in neuro exam. ready for LTAC. will d/c moser and rectal tubes. 05/20: no changes or improvements. very difficult placement due to patient not [place] citizen. 05/21: no improvements. resting on vent overnight due to distress. 05/22: no neurologic changes. no improvements. attempted T-piece which failed after 10 minutes. 05/23: no improvements. poor prognosis. poor neuro exam. still failing weaning trials. Subjective 05/24: no improvements or changes. still failing t-piece trials. Objective Vital Signs Date Time Temp Pulse Resp B/P (MAP) Pulse Ox O2 Delivery O2 Flow Rate FiO2 05/24/17 01:02 100 40 05/23/17 16:00 97.7 81 20 155/61 (92) 05/23/17 07:00 Mechanical Ventilator 05/22/17 07:00 14.00 Result Diagram: 05/23/17 0517 05/23/17 0517 Imaging Last Impressions Chest X-Ray 05/07/17 0400 Signed Impressions: Service Date/Time: Sunday, May 07, 2017 04:38 - CONCLUSION: 1. Stable Low-lying ETT with tip approximately 1 cm above the valerie. 2. Mild interval progression of bilateral airspace consolidation exaggerated by patient rotation. 3. Increased small left pleural effusion. Alejo De La Vega MD Abdomen/Pelvis CT 05/07/17 0000 Signed Impressions: Service Date/Time: Sunday, May 07, 2017 13:23 - CONCLUSION: 1. Large left pneumothorax. 2. Bilateral lower lobe consolidation and bilateral moderate size pleural effusions. 3. Significant soft tissue thickening of the right lateral chest wall and left gluteus muscle. 4. Mild ascites. The findings were called to Dr. Carney. Deangelo Zamora MD Head CT 05/06/17 0000 Signed Impressions: Service Date/Time: Saturday, May 06, 2017 04:18 - CONCLUSION: 1. Evolving large left-sided MCA territory infarct with minimally improved [id number] subfalcine shift. 2. No intercurrent hemorrhage or other acute abnormality. Alejo D eLa Vega MD Abdomen X-Ray 05/06/17 0000 Signed Impressions: Service Date/Time: Saturday, May 06, 2017 17:42 - CONCLUSION: Dobbhoff feeding tube tip near the gastroduodenal junction. Obdulio Simms MD Hip and Pelvis X-Ray 05/05/17 0000 Signed Impressions: Service Date/Time: Friday, May 05, 2017 10:59 - CONCLUSION: Left proximal femur trochanteric/subtrochanteric fracture lucency visualized. Postoperative changes. Choco Mustafa MD Chest CT 04/30/17 0000 Signed Impressions: Service Date/Time: Sunday, April 30, 2017 09:20 - CONCLUSION: 1. Bilateral pulmonary infiltrates more pronounced within the lower lobes with tiny bilateral pleural effusions. Material seen filling the lower lobe bronchi bilaterally either related to purulent material or perhaps mucus plugging. Deangelo Wren Jr., MD Carotid Artery Ultrasound 04/24/17 0000 Signed Impressions: Service Date/Time: April 09:45 - CONCLUSION: 1. No hemodynamically significant carotid artery stenosis. Arnie Middleton MD Hip X-Ray 04/21/17 0000 Signed Impressions: Service Date/Time: Friday, April 21, 2017 11:36 - CONCLUSION: Fluoroscopic images during placement of intramedullary siomara left femur. Benja Ramsey MD Objective Remarks Gen: 76-year-old female HEENT: nc. at. perrl. mucous membranes moist. Neck: trached. Chest/pulmonary: unlabored. on ventilator. Cardiovascular: RRR. GI/abdomen: Distended. Nontender. Extremities: Warm bilaterally, anasarca 2+ upper and 2+ lower extremity edema. Incision sites over left hip, thigh ORIF site clean dry and intact. Neuro: Intubated, on no sedation. Has eye opening and grimaces spontaneously. Dense right hemiplegia noted. Withdraws left upper extremity, Withdraws LLE. No change. Pupils 2 mm, react. A/P Assessment and Plan Neuro/Psych: Left MCA CVA - 12 mm of [id number] subfalcine herniation - right-sided hemiplegia Acute encephalopathy History CVA Follow neuro status closely. Continue Aspirin 325 mg by mouth daily Patient was not a candidate for thrombolysis per discussion with neurology and radiology. Repeat head CT 05/05 showed slight improvement in the midline shift and mass effect Neurosurgery consulted 04/30- Dr. López, recommended conservative management Neurology following - Dr. Malave Cardiovascular: Hypertension IV fluids currently on hold due to edema As needed Antihypertensives to keep systolic blood pressure less than to 180 mmHg Echocardiogram 04/24 - EF 50 to 55%. Mild concentric LVH. Pulmonary: Acute hypoxic respiratory failure - aspiration possible HCAP Large left pneumothorax status post #10 Thai chest tube 05/07 Ventilator bundle Ipratropium/albuterol aerosols every 6 hours with albuterol aerosols every 2 hours Chest tube d/c'd 05/12 Daily SBTs. failing for tachypnea. will continue trials daily. GI/liver: Elevated transaminases Hypoalbuminemia Moderate to severe protein calorie malnutrition Dobbhoff for tube feedings and medications. Continue tube feeding with Glucerna 1.5 goal 45 cc an hour\ Lansoprazole 30 mg daily for GI regimen Docusate sodium 100 twice a day, Senokot 8.6 twice a day, polyethylene glycol 17 grams twice a day and lactulose 30 cc 4 times a day Evaluate CT abdomen/pelvis 05/07 - mild ascites. Large left hemothorax. Right greater than left pleural effusion. Avoid hepatotoxic drugs LFTs improving Alk Phos elevated again 05/18. continue fiber in diet. Endocrine: Diabetes mellitus Detemir 8 units subcutaneous daily. SSI high dose q4h. Holding glimepiride 4 mg by mouth daily /Renal/FEN: Hypopotassemia Strict intake output, monitor and replete electrolytes, follow BUN/creatinine. Moser catheter placed for urinary retention on 04/26. Moser removed 05/19 with q6h straight cath. Heme: Chronic Rivaroxaban use Leukocytosis Normocytic anemia Thrombocytosis Follow CBC and coags. On subcutaneous enoxaparin Hemoglobin currently stable. No indications for transfusion of blood proximally at this time ID: MSSA bacteremia Serratia/staph aureus pneumonia C glabrata UTI Pertinent cultures Urine culture 04/26/17 sofie glabrata Blood culture 04/29/17 1 out of 4 bottles staph aureus Sputum culture 04/30/17 staph aureus and Serratia. Blood cultures 2, sputum 1 and urine 05/08 pending -> Serratia, treated. off abx. MSK: Left Intertroch Hip Fx s/p IMN Vitamin D deficiency Prophylaxis: SCDs. Enoxaparin 40 mg sq daily-cleared by Dr. Ananda SANDS - lansoprazole Overall impression: Devastating CVA. No improvement. poor prognosis. very difficult wean given age, comorbidities and deconditioning. PEG placed. No change in neuro status. Medicaid pending for placement. Anuj Heaton MD May 24, 2017 02:32
[2017-05-24 05:57] LABS: ALBUMIN 1.6 GM/DL (3.4-5.0); AST (GOT) 35 U/L (15-37); BICARBONATE 33.8 MEQ/L (21.0-32.0); BLOOD UREA NITROGEN 36 MG/DL (7-18); CALCIUM 8.1 MG/DL (8.5-10.1); CHLORIDE 104 MEQ/L (98-107); GLOMERULAR FILTRATION RATE 217 ML/MIN (>89); GLUCOSE,RANDOM 155 MG/DL (74-106); SODIUM (NA) 143 MEQ/L (136-145)
[2017-05-24 05:58] LABS: ALT (GPT) 25 U/L (10-53)
[2017-05-24 06:01] LABS: ALKALINE PHOSPHATASE 597 U/L (45-117); TOTAL BILIRUBIN ADULT 0.4 MG/DL (0.2-1.0); TOTAL PROTEIN 5.7 GM/DL (6.4-8.2)
[2017-05-24] MEDS: INSULIN ASPART SUPPLEMENTAL SCALE SQ SCH ×4 (08:00→20:57)
[2017-05-24] MEDS: CALCIUM/VITAMIN D 250 MG/125 U TAB PO SCH ×3 (08:49→17:28)
[2017-05-24] MEDS: ASPIRIN 325 MG TAB DOBHOFF SCH (08:49)
[2017-05-24] MEDS: CHOLECALCIFEROL (VIT D3) 5000 UNIT CAP PO SCH (08:49)
[2017-05-24] MEDS: LANSOPRAZOLE SOLUTAB 30 MG TAB NG SCH (08:50)
[2017-05-24] MEDS: FUROSEMIDE 40 MG/5 ML UNIT DOSE CUP NG SCH (08:50)
[2017-05-24] MEDS: DOCUSATE SODIUM 100 MG/10 ML UDC PO SCH ×2 (08:51→20:58)
[2017-05-24] MEDS: SODIUM CHLORIDE 0.9% FLUSH 5 ML FLUSH IV FLUSH SCH ×2 (08:51→20:58)
[2017-05-24] MEDS: BENEPROTEIN POWDER 1 PACK G-TUBE SCH ×3 (08:51→18:00)
[2017-05-24] MEDS: INSULIN DETEMIR 100 UNITS/ML VIAL SQ SCH ×2 (08:52→20:57)
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
[2017-05-24] MEDS: ENALAPRILAT 1.25 MG/ML VIAL IV PUSH PRN (23:07)
[2017-05-25] VITALS (20 sets, daily range): BP systolic 111–161; BP diastolic 58–77; PULSE 72–94; RESP 14–23; TEMP 98.4–98.8; O2SAT 90–100
[2017-05-25] MEDS: INSULIN ASPART SUPPLEMENTAL SCALE SQ SCH ×4 (06:44→21:00)
[2017-05-25] MEDS: SODIUM CHLORIDE 0.9% FLUSH 5 ML FLUSH IV FLUSH SCH ×2 (09:00→21:00)
[2017-05-25] MEDS: BENEPROTEIN POWDER 1 PACK G-TUBE SCH ×3 (09:00→18:00)
[2017-05-25] MEDS: DOCUSATE SODIUM 100 MG/10 ML UDC PO SCH ×2 (09:00→20:59)
[2017-05-25] MEDS: INSULIN DETEMIR 100 UNITS/ML VIAL SQ SCH ×2 (09:00→21:03)
--- NOTE | 2017-05-25 09:36 | HHI.FPPN ---
Subjective Remarks Patient was hypertensive overnight up to 183/87, so Vasotec was ordered by night team. Per nurse report, patient has required straight cath's q6h for the past 5 days. Thus, Moser order was placed. Furthermore, patient has malodorous urine, so UA + c/s was ordered. Also, patient has diarrhea, so c. diff. PCR was ordered. Otherwise, patient seems to be at baseline since CVA this admission. (Jose R Bennett MD R2) Objective Vitals Vital Signs Date Time Temp Pulse Resp B/P (MAP) Pulse Ox O2 Delivery O2 Flow Rate FiO2 05/25/17 08:18 35 05/25/17 07:14 100 35 05/25/17 07:00 100 Mechanical Ventilator 35 05/25/17 06:00 76 05/25/17 04:00 76 05/25/17 04:00 35 05/25/17 04:00 98.6 76 14 161/77 (105) 100 05/25/17 03:31 98 35 05/25/17 02:00 80 05/25/17 00:15 100 35 05/25/17 00:00 35 05/25/17 00:00 98.5 74 14 157/74 (101) 100 05/25/17 00:00 94 05/24/17 22:00 82 05/24/17 22:00 77 183/87 (119) 05/24/17 21:33 100 35 05/24/17 20:00 100 Mechanical Ventilator 35 05/24/17 20:00 74 05/24/17 20:00 35 05/24/17 20:00 98.0 74 14 153/71 (98) 99 05/24/17 18:00 69 05/24/17 16:00 71 05/24/17 16:00 97.8 68 14 130/74 (92) 100 05/24/17 16:00 40 05/24/17 15:13 99 40 05/24/17 14:00 71 05/24/17 12:59 100 40 05/24/17 12:46 40 05/24/17 12:00 45 05/24/17 12:00 66 05/24/17 12:00 98.3 66 14 130/62 (84) 100 05/24/17 11:00 45 05/24/17 11:00 100 45 05/24/17 10:00 83 I/O 05/24/17 05/24/17 05/24/17 05/25/17 05/25/17 05/25/17 07:00 15:00 23:00 07:00 15:00 23:00 Intake Total 590 ml 599 ml 692 ml Output Total 900 ml 675 ml 850 ml Balance -310 ml -76 ml -158 ml Tube Feeding 490 ml 499 ml 492 ml Tube Irrigant 100 ml Other 100 ml 200 ml Output Urine Total 900 ml 675 ml 850 ml # Bowel Movements 4 3 6 (Jose R Bennett MD R2) Result Diagram: 05/23/17 0517 05/24/17 0436 Imaging Last Impressions Head CT 05/15/17 0000 Signed Impressions: Service Date/Time: May 19:59 - CONCLUSION: 1. 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 2. No bleed or new/acute infarct. Obdulio Simms MD Chest X-Ray 05/15/17 0000 Signed Impressions: Service Date/Time: May 12:38 - CONCLUSION: 1. A tracheostomy tube in good position with its tip 2 cm above the valerie. 2. Stable scattered pulmonary infiltrates bilaterally. 3. Dobbhoff feeding tube has its tip in the distal stomach. Enzo Farooq MD Abdomen X-Ray 05/10/17 0000 Signed Impressions: Service Date/Time: Wednesday, May 10, 2017 22:08 - CONCLUSION: Tip of Dobbhoff catheter is in the antrum of the stomach. Sage Adler MD Gall Bladder Ultrasound 05/08/17 0000 Signed Impressions: Service Date/Time: May 08:23 - CONCLUSION: Focally unremarkable appearance of the gallbladder Obdulio Chun MD Abdomen/Pelvis CT 05/07/17 0000 Signed Impressions: Service Date/Time: Sunday, May 07, 2017 13:23 - CONCLUSION: 1. Large left pneumothorax. 2. Bilateral lower lobe consolidation and bilateral moderate size pleural effusions. 3. Significant soft tissue thickening of the right lateral chest wall and left gluteus muscle. 4. Mild ascites. The findings were called to Dr. Carney. Deangelo Zamora MD Hip and Pelvis X-Ray 05/05/17 0000 Signed Impressions: Service Date/Time: Friday, May 05, 2017 10:59 - CONCLUSION: Left proximal femur trochanteric/subtrochanteric fracture lucency visualized. Postoperative changes. Choco Mustafa MD Chest CT 04/30/17 0000 Signed Impressions: Service Date/Time: Sunday, April 30, 2017 09:20 - CONCLUSION: 1. Bilateral pulmonary infiltrates more pronounced within the lower lobes with tiny bilateral pleural effusions. Material seen filling the lower lobe bronchi bilaterally either related to purulent material or perhaps mucus plugging. Deangelo Wren Jr., MD Carotid Artery Ultrasound 04/24/17 0000 Signed Impressions: Service Date/Time: April 09:45 - CONCLUSION: 1. No hemodynamically significant carotid artery stenosis. Arnie Middleton MD Hip X-Ray 04/21/17 0000 Signed Impressions: Service Date/Time: Friday, April 21, 2017 11:36 - CONCLUSION: Fluoroscopic images during placement of intramedullary siomara left femur. Benja Ramsey MD Objective Remarks CONSTITUTIONAL/GEN: Nonverbal, lying in bed with tracheostomy and PEG tubes in place. Patient's eyes are closed today and unarousable with light touch or speech HEAD: Normocephalic. Atraumatic. Right side facial droop LUNGS: On vent with CPAP trials. Coarse breath sounds bilaterally but moving air well CARDIOVASCULAR: Regular rate and rhythm. Lower extremity bilateral pitting edema improved today. Bilateral hands no longer puffy with 2+pitting edema. Right arm with some skin breakdown healing and no weeping. GI/ABD: hyperactive BS w/o guarding or rebound. no grimacing with palpation. Glucerna 1.5 tube feed @ 45ml/hr. Abdominal distention less prominent now. 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 Moves left UE and LE spontaneously and intermittently. Does not withdraw right hand. MUSC: SCDs on bilateral lower extremities. Pedal pulses weak. Left foot cool to touch while right foot is warm. SKIN: Sacral pressure ulcer extends from anus to coccyx. Procedures ORIF 04/21/17 Intubation 04/30/17 (Jose R Bennett MD R2) A/P Assessment and Plan 76 y/o female with HTN, DM, CVA admitted for DKA and hip fracture. Sadly, patients with hip fractures have other problems and have a high chance of fatal conditions near the time of their fractures. Hip fractures are often a marker for other frailty. Now with massive left MCA stroke, right hemiplegia and midline shift resolving. Neuro and sales systems engineer consulted. Working with palliative care and daughter for goals of care. 05/07 CT abdomen/pelvis w/large pneumothorax on left side decompressed with chest tube. Chest tube pulled 05/12. Tracheostomy placed 05/15. PEG tube 05/16. -Overall poor prognosis, pursuing goals of care discussion with daughter (HCPOA) , but at this time daughter wishes continued intervention -05/09 - extensive discussion with daughter today indicates no willingness to pursue comfort measures only. Daughter continues to ask for aggressive management of her mother's condition; will continue to engage in this discussion -05/11--CXR w/bilateral pleural effusions vs pulmonary edema--diuresis ordered -05/14 -- little interval change. Wt down from 70 kg on 05/10 to 59kg today. CPAP trials progressing. Family meeting with daughter yielded no change in code status or goals of care. Plan is to re-join with discussing trach and PEG feeding tube with daughter in 2-3 days time. -05/15 -- Daughter consented to tracheostomy and procedure was performed today. CPAP trials still progressing. No other changes. -05/16 -- Tracheostomy in place, pt with eyes open today responding to simple commands. GI consulted with PEG tube planned for today. -05/17 - starting PEG tube feeds -05/18 - Glucerna 1.5 feed through PEG tube at 45ml/hr; changing moser out today (10 days); opens eyes but cannot track; does not respond to commands; still on Ancef IV for PEG and trach procedures. - 05/19 - no interval change in status. Office Mail Clerk to remove moser and rectal tube today. Pursuing movement to [facility]. -05/20 - no interval change, but she is increasing her stamina on CPAP trials to several hours now. In/out caths being placed for UOP. 05/21 no medicaid pending 05/22 - no interval change 05/23 - daughter still desires full code measures. Increasing endurance on CPAP trials; however, patient still requiring vent. CPAP trials appear to acutely fatigue pt. Office Mail Clerk performing trial of T-tube off CPAP; pt failed this intervention yesterday as she was breathing too shallow. 05/24 - spoke with daughter regarding future plan of care for her mother 05/25 - Moser inserted; UA, C diff PCR ordered Discharge Planning Pending stroke progression and discussion for goals of care she has no Insurance. Medicaid was applied and she cannot have this as she is not a [place] citizen and has not lived in the [place] long enough. she cannot go to a vent facility nor a SNF without Insurance. Case management explained that to her daughter. Per her daughter, she continues to believe she will improve back to her norm at some point and wants to keep her with aggressive measures. she is looking for rehab as she believes her mother can improve (Jose R Bennett MD R2) Attending Attestation Patient seen and examined. Case reviewed and discussed with the resident team. Agree with plan of care as discussed with me and documented in the resident note. extremely sick pt. she unfortunately has had a severe CVA and has such a large area of infarction (Dawn Guajardo MD) Problem List: (1) Acute CVA (cerebrovascular accident) ICD Codes: I63.9 - Cerebral infarction, unspecified Status: Acute Plan: -Consulted sales systems engineer, appreciate recs -s/p Tracheostomy 05/15 and PEG tube insertion 05/16 -Poor prognosis -Neurosurgery consulted -Recommended conservative management -Tube feeds: Glucerna 1.5 tube feed @ 45ml/hr for diet via PEG tube -change to fluid through PEG tube, will start free water (300cc q6h ) as she needs maintenance fluid of 95 ml/hr -Corporate Quality Assurance Manager consulted for management and recs on a steady 45 cc/hr of Glucerna 24 hours a day -Consulted palliative care-appreciate recs. appreciate help in talking to her daughter -Case discussed with daughter in-person about goals of care, limited treatment options, and poor prognosis. hope to be involved in future family discussions, have let palliative know this -Daughter continues to want aggressive care. Wishes to continue aggressive medical treatment despite prognosis -Neurology consulted-appreciate recs -Rectal ASA -Lovenox 40mg daily History and imaging: Patient found minimally responsive with neurological deficits around 0820 04/24. Stat CT of head was ordered, which showed large left MCA infarct. Diffuse edema throughout the left MCA distribution, suggested completed infarct. This was discussed and was not a candidate for intracranial intervention. CT (04/30): Reduction in midline shift to 11mm. Unchanged large left MCA infarction. CT head (05/06) shows: Evolving large left-sided MCA territory infarct with minimally improved esez-te-dypfy subfalcine shift. No intercurrent hemorrhage or other acute abnormality. Echocardiogram- The left ventricular systolic function is low normal with an estimated ejection fraction in the range of 50-55%. Mild concentric left ventricular hypertrophy. Normal left ventricular size. [id number] mitral valve regurgitation. Carotid Artery US- No hemodynamically significant carotid stenosis (2) On mechanically assisted ventilation ICD Codes: Z99.11 - Dependence on respirator [ventilator] status Plan: Impression: s/p trach procedure 05/15. Continues to fail CPAP trials, but is improving stamina gradually to tolerate it for longer periods; 40% FiO2 -Continue weaning trials as tolerated trial of T-tube on trach off of CPAP mode, but pt was breathing too shallowly (3) Diarrhea ICD Codes: R19.7 - Diarrhea, unspecified Plan: Nurse reported diarrhea. -C diff stool PCR (4) Malodorous urine ICD Codes: R82.90 - Unspecified abnormal findings in urine Plan: Nurse reports malodorous urine; patient has required straight cath's q6h for the past 5 days. -Moser order was placed. -UA with culture and sensitivities (5) Sacral decubitus ulcer ICD Codes: L89.159 - Pressure ulcer of sacral region, unspecified stage Plan: Patient with small sacral decubitus ulcer over the coccyx that appears to be worsening; wound care nurse saw today, ordered special air mattress and other interventions to improving healing -Wound care consult ordered and appreciated she does not move at all and is on the vent with the trach so she cannot be positioned on her stomach without effecting her breathing. (6) Type 2 diabetes mellitus ICD Codes: E11.9 - Type 2 diabetes mellitus without complications Status: Chronic Plan: Admitted for DKA which has now resolved. Hemoglobin A1C is 12.9. Diabetes Type I is uncontrolled. -05/22 - Started pt on Levemir 7 units AM + 7 units PM--received call at 8PM stating pt BG level at 60 and hypoglycemia protocol started; -Reduced Levemir to 5 units AM + 5 units PM -Low dose insulin sliding scale with goal blood glucose between 140 and 180 -Glucerna for PEG tube feedings @ 45 ml/hr as per GI recs. -as she is on tube feeds 24 hours a day, consideration could be given to long acting insulin as the main insulin. glucoses should be allowed to run a bit higher than the average ICU patient as she is not post op cardiac or other such problem and her prognosis is abysmal and most glucose control is to prevent intermediate project manager (10 years down [address] road) problems. would definitely not want hypoglycemia (7) Hypertension ICD Codes: I10 - Essential (primary) hypertension Status: Acute Plan: BPs hypertensive overnight, required Vasotec -Antihypertensives to keep SBP<180 -Lasix or Bumex for diuresis as required (8) Fluids, Electrolytes, and Nutrition Status: Acute Plan: Fluids: through OG tube Electrolyte: on electrolyte protocol Nutrition: Glucerna tube feeds will add free water DVT ppx: SCDs/lovenox 40 mg daily CVA ppx: aspirin 325 mg GI ppx: protonix Colace, fleet enema mineral oil (9) Atrial fibrillation ICD Codes: I48.91 - Unspecified atrial fibrillation Status: Resolved Plan: Hx of intermittent Afib. Resolved with administration of Lopressor. -Continue to monitor -Lopressor PRN (10) Hip fracture ICD Codes: S72.009A - Fracture of unspecified part of neck of unspecified femur , initial encounter for closed fracture Status: Resolved Plan: S/P left hip reduction and intramedullary nail fixation on 04-21-17 -Consulted orthopedics-appreciate recs * WBAT * Daily dressing changes -Calcium/Vitamin D -Fluids as above -Tylenol, morphine PRN pain, it is difficult to tell if she is having pain (Joes R Bennett MD R2) Problem Qualifiers (1) Sacral decubitus ulcer: Qualified Codes: L89.151 - Pressure ulcer of sacral region, stage 1 (2) Type 2 diabetes mellitus: Qualified Codes: E11.9 - Type 2 diabetes mellitus without complications (3) Hypertension: Qualified Codes: I10 - Essential (primary) hypertension (4) Atrial fibrillation: Qualified Codes: I48.0 - Paroxysmal atrial fibrillation (5) Hip fracture: Jose R Bennett MD R2 May 25, 2017 09:36 Dawn Guajardo MD May 27, 2017 09:42
--- NOTE | 2017-05-25 10:23 | HHI.CCPN ---
Subjective Remarks/Hospital Course 04/24: 76-year-old female with a medical history significant for prior stroke, diabetes mellitus who was admitted with DKA and a hip fracture for which she underwent ORIF on 04/21. Patient developed altered mental status and was last noted to be okay around 5:30 AM. Subsequently there was a change in her mental status and she was noted to not be moving her right side for which stroke alert was called. Head CT showed large left MCA territory ischemic infarct with edema. Patient was transferred to the ICU by family medicine service in the critical care consult was requested. I evaluated the patient following arrival to the ICU. At that time she was laying in bed with her eyes open however not following commands and had a dense right hemiplegia. Patient was also evaluated by Dr. Malave from neurology. I further discussed current event with patient's daughter following her arrival to the ICU. Per the daughter patient has been living with her since her stroke in 2014 and does ambulate however has been having problems with memory and incontinence as well as gait difficulties. She does not feel patient would want intubation or tracheostomy or PEG tube. 04/25: Patient remains encephalopathic, awake though not following commands consistently. Dense right hemiplegia persists. Appears to be awake enough to protect airway currently. Patient's daughter rescinded DNR and made a full code last evening. 04/26: Remains encephalopathic, not following commands. On Dobbhoff for tube feeds at 30 cc per hour. Had urinary retention and drained 2 L of urine after placing Moser catheter today. CT head done this morning with large left MCA territory infarct with left to right midline shift and significant cerebral edema. Hyperglycemia noted. Patient given mannitol earlier for increasing cerebral edema. 04/27: Remains encephalopathic, not following commands. On Dobbhoff tube feeds at 30 cc per hour. When into A. fib with RVR last night which responded with Lopressor 5 mg IV 1 dose. 04/28: Remains encephalopathic, arousable, not following commands. Moves left upper extremity spontaneously. Tolerating Dobbhoff tube feeds. Remains on nasal cannula. 04/29: Encephalopathic, eyes be arousable, moves left upper extremity spontaneously and occasionally opens eyes. Dense right hemiplegia and aphasia persists. On nasal cannula. Dobbhoff tube feeds being advanced. Patient was transfused 1 unit PRBCs yesterday. Urine culture with yeast from yesterday for which fluconazole being started. Had brief run of A. fib with RVR which improved with Lopressor IV, currently in sinus rhythm. 04/30: Worsening hypoxemic respiratory failure, currently on partial nonrebreather. Remains lethargic. WBC count increased from 14.6 today 20.7. Chest x-ray shows bilateral worsening infiltrates and small pleural effusions. Sodium 154, weight up by 8 KG. Albumin 1 mg Bumex 1. Also one dose of albumin. Remains in sinus tachycardia. Tmax 101.3 05/01: Patient was intubated yesterday for lack of airway protection, and severe hypoxemic respiratory failure from aspiration pneumonia involving multiple lobes. Patient is on the vent lethargic, no spontaneous eye opening. Chest x- ray remains unchanged. Remains intermittently febrile Tmax 101.3. WBC count improving 05/02: Remains critically ill with no improvement in mental status. Spiking fever of 101.7. Blood culture and sputum culture with staph aureus sputum also growing GNR, WBC count 22,000 now indicating worsening sepsis. Daughter still requesting aggressive care. Palliative care is following 05/03: S/P large area dominant hemisphere CVA. No neurological improvement. Now with pneumonia (infiltrate, fever, leukocytosis) and appropriate abx coverage. She will have a hard time surviving the hip fx, CVA, and pneumonia. Palliative Care needs to be a mainstay of our plan. 05/04: No improvement in neuro status. Sputum C&S allows us to narrow abx coverage to levaquin alone. Lungs remain quite congested. Enteral nutrition tolerated. 05/05: No improvement in neuro status. Moves left arm spontaneously. Flaccid right side. Unresponsive. Persistent mild hypoglycemia - will cut Levemir 50%. Abdomen more distended, check KUB. 05/06: CT head with massive left MCA infarction and > 1 cm shift in right handed woman. She opens eyes, does not track. 05/07: Patient open eyes. Attempts to respond. American speaking. Tolerating tube feeds. Positive bowel movement. Volume overloaded. 05/08: Tmax 99.4. Potassium being replaced. Ultrasound gallbladder currently pending. Transaminases are trending downward. Gently diurese. 05/09: Alk phos decreasing. Remains with good urine output. Neurological status not improving. 05/10: Fixed neuro deficit unchanged. Profound CVA. 05/11: Appears to track with eyes today. No improvement in motor function. Remains very edematous, diuretics doubled. 05/12: Continued thick secretions. Afebrile, leukocytosis resolved. 05/13: CT head with completed left MCA stroke, persistent edema and 5 mm shift away. Does not last long on SBTs - major decision now is trach/PEG. 05/14: Daughter has decided to proceed with trach and PEG. I have been pessimistic with her about chances for a meaningful recovery. 05/15: Plan for trach today. No change in neuro status. Still ventilator dependent. 05/16: Trach completed. Await PEG and disposition. 05/17: PEG placed 05/16. Start TFs today after nutrition consult. Work to place patient. 05/18: No improvement. Does open eyes, no focus or tracking. Completed large dominant (left) hemisphere CVA in right handed woman with severe deficit. Medicaid pending status, [employer] is following. 05/19: no improvements in neuro exam. ready for LTAC. will d/c moser and rectal tubes. 05/20: no changes or improvements. very difficult placement due to patient not [place] citizen. 05/21: no improvements. resting on vent overnight due to distress. 05/22: no neurologic changes. no improvements. attempted T-piece which failed after 10 minutes. 05/23: no improvements. poor prognosis. poor neuro exam. still failing weaning trials. Subjective 05/24: no improvements or changes. still failing t-piece trials. 05/25: No acute changes of improvement overnight. Failed CPAP due to apnea, tried again currently tolerating. Neurological exam unchanged Objective Vital Signs Date Time Temp Pulse Resp B/P (MAP) Pulse Ox O2 Delivery O2 Flow Rate FiO2 05/25/17 10:00 82 05/25/17 08:18 35 05/25/17 08:00 98.8 14 154/73 (100) 100 05/25/17 07:00 Mechanical Ventilator 05/22/17 07:00 14.00 Intake and Output 05/25/17 05/25/17 05/26/17 08:00 16:00 00:00 Intake Total 692 ml Output Total 850 ml Balance -158 ml Result Diagram: 05/23/17 0517 05/24/17 0436 Imaging Last Impressions Chest X-Ray 05/07/17 0400 Signed Impressions: Service Date/Time: Sunday, May 07, 2017 04:38 - CONCLUSION: 1. Stable Low-lying ETT with tip approximately 1 cm above the valerie. 2. Mild interval progression of bilateral airspace consolidation exaggerated by patient rotation. 3. Increased small left pleural effusion. Alejo De La Vega MD Abdomen/Pelvis CT 05/07/17 0000 Signed Impressions: Service Date/Time: Sunday, May 07, 2017 13:23 - CONCLUSION: 1. Large left pneumothorax. 2. Bilateral lower lobe consolidation and bilateral moderate size pleural effusions. 3. Significant soft tissue thickening of the right lateral chest wall and left gluteus muscle. 4. Mild ascites. The findings were called to Dr. Carney. Deangelo Zamora MD Head CT 05/06/17 0000 Signed Impressions: Service Date/Time: Saturday, May 06, 2017 04:18 - CONCLUSION: 1. Evolving large left-sided MCA territory infarct with minimally improved [id number] subfalcine shift. 2. No intercurrent hemorrhage or other acute abnormality. Alejo De La Vega MD Abdomen X-Ray 05/06/17 0000 Signed Impressions: Service Date/Time: Saturday, May 06, 2017 17:42 - CONCLUSION: Dobbhoff feeding tube tip near the gastroduodenal junction. Obdulio Simms MD Hip and Pelvis X-Ray 05/05/17 0000 Signed Impressions: Service Date/Time: Friday, May 05, 2017 10:59 - CONCLUSION: Left proximal femur trochanteric/subtrochanteric fracture lucency visualized. Postoperative changes. Choco Mustafa MD Chest CT 04/30/17 0000 Signed Impressions: Service Date/Time: Sunday, April 30, 2017 09:20 - CONCLUSION: 1. Bilateral pulmonary infiltrates more pronounced within the lower lobes with tiny bilateral pleural effusions. Material seen filling the lower lobe bronchi bilaterally either related to purulent material or perhaps mucus plugging. Deangelo Wren Jr., MD Carotid Artery Ultrasound 04/24/17 0000 Signed Impressions: Service Date/Time: April 09:45 - CONCLUSION: 1. No hemodynamically significant carotid artery stenosis. Arnie Middleton MD Hip X-Ray 04/21/17 0000 Signed Impressions: Service Date/Time: Friday, April 21, 2017 11:36 - CONCLUSION: Fluoroscopic images during placement of intramedullary siomara left femur. Benja Ramsey MD Objective Remarks Gen: 76-year-old female HEENT: nc. at. perrl. mucous membranes moist. Neck: trached. Chest/pulmonary: unlabored. on ventilator. Cardiovascular: RRR. No murmurs GI/abdomen: Distended. Nontender. Extremities: Warm bilaterally, anasarca 2+ upper and 2+ lower extremity edema. Incision sites over left hip, thigh ORIF site clean dry and intact. Neuro: On no sedation. Has eye opening and grimaces spontaneously. Dense right hemiplegia noted. Withdraws left upper extremity, Withdraws LLE. No change. Pupils 2 mm, react. A/P Assessment and Plan Neuro/Psych: Left MCA CVA - 12 mm of [id number] subfalcine herniation - right-sided hemiplegia Acute encephalopathy History CVA Follow neuro status closely. Continue Aspirin 325 mg by mouth daily Patient was not a candidate for thrombolysis per discussion with neurology and radiology. Repeat head CT 05/05 showed slight improvement in the midline shift and mass effect Neurosurgery consulted 04/30- Dr. López, recommended conservative management Neurology following - Dr. Malave Cardiovascular: Hypertension IV fluids currently on hold due to edema As needed Antihypertensives to keep systolic blood pressure less than to 160 mmHg Echocardiogram 04/24 - EF 50 to 55%. Mild concentric LVH. Pulmonary: Acute hypoxic respiratory failure - aspiration possible HCAP Large left pneumothorax status post #10 Azeri chest tube 05/07 Ventilator bundle. Ipratropium/albuterol aerosols every 6 hours with albuterol aerosols every 2 hours Chest tube d/c'd 05/12 Daily SBTs. failing for tachypnea. will continue trials daily. TP if CPAP tolerated GI/liver: Elevated transaminases Hypoalbuminemia Moderate to severe protein calorie malnutrition Dobbhoff for tube feedings and medications. Continue tube feeding with Glucerna 1.5 goal 45 cc an hour Lansoprazole 30 mg daily for GI regimen Docusate sodium 100 twice a day, Senokot 8.6 twice a day, polyethylene glycol 17 grams twice a day and lactulose 30 cc 4 times a day Evaluate CT abdomen/pelvis 05/07 - mild ascites. Large left hemothorax. Right greater than left pleural effusion. LFTs improving. Alk Phos elevated again 05/18. continue fiber in diet. Endocrine: Diabetes mellitus Detemir 8 units subcutaneous daily. SSI high dose q4h. Holding glimepiride 4 mg by mouth daily /Renal/FEN: Hypokalemia Strict intake output, monitor and replete electrolytes, follow BUN/creatinine. Moser catheter placed for urinary retention on 04/26. Moser removed 05/19 with q6h straight cath. Heme: Chronic Rivaroxaban use Leukocytosis Normocytic anemia Thrombocytosis Follow CBC and coags. On subcutaneous enoxaparin Hemoglobin currently stable. No indications for transfusion of blood proximally at this time ID: MSSA bacteremia Serratia/staph aureus pneumonia C glabrata UTI Pertinent cultures Urine culture 04/26/17 sofie glabrata Blood culture 04/29/17 1 out of 4 bottles staph aureus Sputum culture 04/30/17 staph aureus and Serratia. Blood cultures 2, sputum 1 and urine 05/08 pending -> Serratia, treated. off abx. MSK: Left Intertroch Hip Fx s/p IMN Vitamin D deficiency Prophylaxis: SCDs. Enoxaparin 40 mg sq daily-cleared by Dr. Ananda SANDS - lansoprazole Overall impression: Devastating CVA. No improvement. poor prognosis. very difficult wean given age, comorbidities and deconditioning. PEG placed. No change in neuro status. Medicaid pending for placement. Meg Mak MD May 25, 2017 10:23
[2017-05-25] MEDS: CALCIUM/VITAMIN D 250 MG/125 U TAB PO SCH ×3 (10:42→18:00)
[2017-05-25] MEDS: ASPIRIN 325 MG TAB DOBHOFF SCH (10:42)
[2017-05-25] MEDS: LANSOPRAZOLE SOLUTAB 30 MG TAB NG SCH (10:42)
[2017-05-25] MEDS: FUROSEMIDE 40 MG/5 ML UNIT DOSE CUP NG SCH (10:43)
[2017-05-25] MEDS: CHOLECALCIFEROL (VIT D3) 5000 UNIT CAP PO SCH (10:43)
[2017-05-25] MEDS: FREE WATER G-TUBE SCH ×3 (14:15→23:12)
[2017-05-25 16:34] LABS: BACTERIA, URINE MANY /hpf; BILIRUBIN, URINE NEG (NEG); BLOOD, URINE SMALL (NEG); GLUCOSE,URINE NEG (NEG); HYALINE CAST, URINE 4 /lpf (RARE); KETONE, URINE NEG (NEG); MUCUS URINE FEW /lpf (OCC); NITRITE,URINE POS (NEG); SQUAMOUS EPITHELIAL CELL URINE <1 /hpf (0-5); URINE COLOR YELLOW (YELLW/STRAW); URINE LEUKOCYTE ESTERASE LARGE (NEG); WHITE BLOOD CELL CLUMPS RARE
[2017-05-26] VITALS (18 sets, daily range): BP systolic 144–186; BP diastolic 67–84; PULSE 72–88; RESP 14–29; TEMP 97.9–99.3; O2SAT 97–100
[2017-05-26] MEDS: ENALAPRILAT 1.25 MG/ML VIAL IV PUSH PRN ×2 (02:13→19:18)
[2017-05-26] MEDS: FREE WATER G-TUBE SCH ×3 (05:42→18:07)
[2017-05-26] MEDS: INSULIN ASPART SUPPLEMENTAL SCALE SQ SCH ×4 (08:00→21:44)
--- NOTE | 2017-05-26 08:25 | HHI.CCPN ---
Subjective Remarks/Hospital Course 04/24: 76-year-old female with a medical history significant for prior stroke, diabetes mellitus who was admitted with DKA and a hip fracture for which she underwent ORIF on 04/21. Patient developed altered mental status and was last noted to be okay around 5:30 AM. Subsequently there was a change in her mental status and she was noted to not be moving her right side for which stroke alert was called. Head CT showed large left MCA territory ischemic infarct with edema. Patient was transferred to the ICU by family medicine service in the critical care consult was requested. I evaluated the patient following arrival to the ICU. At that time she was laying in bed with her eyes open however not following commands and had a dense right hemiplegia. Patient was also evaluated by Dr. Malave from neurology. I further discussed current event with patient's daughter following her arrival to the ICU. Per the daughter patient has been living with her since her stroke in 2014 and does ambulate however has been having problems with memory and incontinence as well as gait difficulties. She does not feel patient would want intubation or tracheostomy or PEG tube. 04/25: Patient remains encephalopathic, awake though not following commands consistently. Dense right hemiplegia persists. Appears to be awake enough to protect airway currently. Patient's daughter rescinded DNR and made a full code last evening. 04/26: Remains encephalopathic, not following commands. On Dobbhoff for tube feeds at 30 cc per hour. Had urinary retention and drained 2 L of urine after placing Moser catheter today. CT head done this morning with large left MCA territory infarct with left to right midline shift and significant cerebral edema. Hyperglycemia noted. Patient given mannitol earlier for increasing cerebral edema. 04/27: Remains encephalopathic, not following commands. On Dobbhoff tube feeds at 30 cc per hour. When into A. fib with RVR last night which responded with Lopressor 5 mg IV 1 dose. 04/28: Remains encephalopathic, arousable, not following commands. Moves left upper extremity spontaneously. Tolerating Dobbhoff tube feeds. Remains on nasal cannula. 04/29: Encephalopathic, eyes be arousable, moves left upper extremity spontaneously and occasionally opens eyes. Dense right hemiplegia and aphasia persists. On nasal cannula. Dobbhoff tube feeds being advanced. Patient was transfused 1 unit PRBCs yesterday. Urine culture with yeast from yesterday for which fluconazole being started. Had brief run of A. fib with RVR which improved with Lopressor IV, currently in sinus rhythm. 04/30: Worsening hypoxemic respiratory failure, currently on partial nonrebreather. Remains lethargic. WBC count increased from 14.6 today 20.7. Chest x-ray shows bilateral worsening infiltrates and small pleural effusions. Sodium 154, weight up by 8 KG. Albumin 1 mg Bumex 1. Also one dose of albumin. Remains in sinus tachycardia. Tmax 101.3 05/01: Patient was intubated yesterday for lack of airway protection, and severe hypoxemic respiratory failure from aspiration pneumonia involving multiple lobes. Patient is on the vent lethargic, no spontaneous eye opening. Chest x- ray remains unchanged. Remains intermittently febrile Tmax 101.3. WBC count improving 05/02: Remains critically ill with no improvement in mental status. Spiking fever of 101.7. Blood culture and sputum culture with staph aureus sputum also growing GNR, WBC count 22,000 now indicating worsening sepsis. Daughter still requesting aggressive care. Palliative care is following 05/03: S/P large area dominant hemisphere CVA. No neurological improvement. Now with pneumonia (infiltrate, fever, leukocytosis) and appropriate abx coverage. She will have a hard time surviving the hip fx, CVA, and pneumonia. Palliative Care needs to be a mainstay of our plan. 05/04: No improvement in neuro status. Sputum C&S allows us to narrow abx coverage to levaquin alone. Lungs remain quite congested. Enteral nutrition tolerated. 05/05: No improvement in neuro status. Moves left arm spontaneously. Flaccid right side. Unresponsive. Persistent mild hypoglycemia - will cut Levemir 50%. Abdomen more distended, check KUB. 05/06: CT head with massive left MCA infarction and > 1 cm shift in right handed woman. She opens eyes, does not track. 05/07: Patient open eyes. Attempts to respond. [place] speaking. Tolerating tube feeds. Positive bowel movement. Volume overloaded. 05/08: Tmax 99.4. Potassium being replaced. Ultrasound gallbladder currently pending. Transaminases are trending downward. Gently diurese. 05/09: Alk phos decreasing. Remains with good urine output. Neurological status not improving. 05/10: Fixed neuro deficit unchanged. Profound CVA. 05/11: Appears to track with eyes today. No improvement in motor function. Remains very edematous, diuretics doubled. 05/12: Continued thick secretions. Afebrile, leukocytosis resolved. 05/13: CT head with completed left MCA stroke, persistent edema and 5 mm shift away. Does not last long on SBTs - major decision now is trach/PEG. 05/14: Daughter has decided to proceed with trach and PEG. I have been pessimistic with her about chances for a meaningful recovery. 05/15: Plan for trach today. No change in neuro status. Still ventilator dependent. 05/16: Trach completed. Await PEG and disposition. 05/17: PEG placed 05/16. Start TFs today after nutrition consult. Work to place patient. 05/18: No improvement. Does open eyes, no focus or tracking. Completed large dominant (left) hemisphere CVA in right handed woman with severe deficit. Medicaid pending status, [employer] is following. 05/19: no improvements in neuro exam. ready for LTAC. will d/c moser and rectal tubes. 05/20: no changes or improvements. very difficult placement due to patient not [place] citizen. 05/21: no improvements. resting on vent overnight due to distress. 05/22: no neurologic changes. no improvements. attempted T-piece which failed after 10 minutes. 05/23: no improvements. poor prognosis. poor neuro exam. still failing weaning trials. Subjective 05/24: no improvements or changes. still failing t-piece trials. 05/25: No acute changes of improvement overnight. Failed CPAP due to apnea, tried again currently tolerating. Neurological exam unchanged. 05/26: No improvement in neurological function. Objective Vital Signs Date Time Temp Pulse Resp B/P (MAP) Pulse Ox O2 Delivery O2 Flow Rate FiO2 05/26/17 06:00 83 05/26/17 04:00 40 05/26/17 04:00 99.1 24 166/74 (104) 97 05/25/17 21:13 Ventilator 05/22/17 07:00 14.00 Intake and Output 05/26/17 05/26/17 05/27/17 08:00 16:00 00:00 Intake Total 1071 ml Output Total 950 ml Balance 121 ml Result Diagram: 05/23/17 0517 05/24/17 6706 Imaging Last Impressions Chest X-Ray 05/07/17 0400 Signed Impressions: Service Date/Time: Sunday, May 07, 2017 04:38 - CONCLUSION: 1. Stable Low-lying ETT with tip approximately 1 cm above the valerie. 2. Mild interval progression of bilateral airspace consolidation exaggerated by patient rotation. 3. Increased small left pleural effusion. Alejo De La Vega MD Abdomen/Pelvis CT 05/07/17 0000 Signed Impressions: Service Date/Time: Sunday, May 07, 2017 13:23 - CONCLUSION: 1. Large left pneumothorax. 2. Bilateral lower lobe consolidation and bilateral moderate size pleural effusions. 3. Significant soft tissue thickening of the right lateral chest wall and left gluteus muscle. 4. Mild ascites. The findings were called to Dr. Carney. Deangelo Zamora MD Head CT 05/06/17 0000 Signed Impressions: Service Date/Time: Saturday, May 06, 2017 04:18 - CONCLUSION: 1. Evolving large left-sided MCA territory infarct with minimally improved [id number] subfalcine shift. 2. No intercurrent hemorrhage or other acute abnormality. Alejo De La Vega MD Abdomen X-Ray 05/06/17 0000 Signed Impressions: Service Date/Time: Saturday, May 06, 2017 17:42 - CONCLUSION: Dobbhoff feeding tube tip near the gastroduodenal junction. Obdulio Simms MD Hip and Pelvis X-Ray 05/05/17 0000 Signed Impressions: Service Date/Time: Friday, May 05, 2017 10:59 - CONCLUSION: Left proximal femur trochanteric/subtrochanteric fracture lucency visualized. Postoperative changes. Choco Mustafa MD Chest CT 04/30/17 0000 Signed Impressions: Service Date/Time: Sunday, April 30, 2017 09:20 - CONCLUSION: 1. Bilateral pulmonary infiltrates more pronounced within the lower lobes with tiny bilateral pleural effusions. Material seen filling the lower lobe bronchi bilaterally either related to purulent material or perhaps mucus plugging. Deangelo Wren Jr., MD Carotid Artery Ultrasound 04/24/17 0000 Signed Impressions: Service Date/Time: April 09:45 - CONCLUSION: 1. No hemodynamically significant carotid artery stenosis. Arnie Middleton MD Hip X-Ray 04/21/17 0000 Signed Impressions: Service Date/Time: Friday, April 21, 2017 11:36 - CONCLUSION: Fluoroscopic images during placement of intramedullary siomara left femur. Benja Ramsey MD Objective Remarks Gen: 76-year-old female HEENT: nc. at. perrl. mucous membranes moist. Neck: trached. site clean and dry. Chest/pulmonary: unlabored. on ventilator. Cardiovascular: RRR. No murmurs, no JVD. GI/abdomen: Distended. Nontender. Extremities: Warm bilaterally, anasarca 2+ upper and 2+ lower extremity edema. Incision sites over left hip, thigh ORIF site clean dry and intact. Skin: Breakdown of skin on medial aspect of both thighs. Irritated by urine. Neuro: On no sedation. Has eye opening and grimaces spontaneously. Dense right hemiplegia noted. Withdraws left upper extremity, Withdraws LLE. No change. Pupils 2 mm, react. A/P Assessment and Plan Neuro/Psych: Left MCA CVA - 12 mm of [id number] subfalcine herniation - right-sided hemiplegia Acute encephalopathy History CVA Follow neuro status closely. Continue Aspirin 325 mg by mouth daily Patient was not a candidate for thrombolysis per discussion with neurology and radiology. Repeat head CT 05/05 showed slight improvement in the midline shift and mass effect Neurosurgery consulted 04/30- Dr. López, recommended conservative management Neurology following - Dr. Malave Cardiovascular: Hypertension IV fluids currently on hold due to edema As needed Antihypertensives to keep systolic blood pressure less than to 160 mmHg Echocardiogram 04/24 - EF 50 to 55%. Mild concentric LVH. Pulmonary: Acute hypoxic respiratory failure - aspiration possible HCAP Large left pneumothorax status post #10 Vietnamese chest tube 05/07 Ventilator bundle. Ipratropium/albuterol aerosols every 6 hours with albuterol aerosols every 2 hours Chest tube d/c'd 05/12 Daily SBTs. failing for tachypnea. will continue trials daily. TP if CPAP tolerated GI/liver: Elevated transaminases Hypoalbuminemia Moderate to severe protein calorie malnutrition Dobbhoff for tube feedings and medications. Continue tube feeding with Glucerna 1.5 goal 45 cc an hour Lansoprazole 30 mg daily for GI regimen Docusate sodium 100 twice a day, Senokot 8.6 twice a day, polyethylene glycol 17 grams twice a day and lactulose 30 cc 4 times a day Evaluate CT abdomen/pelvis 05/07 - mild ascites. Large left hemothorax. Right greater than left pleural effusion. LFTs improving. Alk Phos elevated again 05/18. continue fiber in diet. Endocrine: Diabetes mellitus Detemir 8 units subcutaneous daily. SSI high dose q4h. Holding glimepiride 4 mg by mouth daily /Renal/FEN: Hypokalemia Strict intake output, monitor and replete electrolytes, follow BUN/creatinine. Moser catheter placed for urinary retention on 04/26. Moser removed 05/19 with q6h straight cath. Heme: Chronic Rivaroxaban use Leukocytosis Normocytic anemia Thrombocytosis Follow CBC and coags. On subcutaneous enoxaparin Hemoglobin currently stable. No indications for transfusion of blood proximally at this time ID: MSSA bacteremia Serratia/staph aureus pneumonia C glabrata UTI Pertinent cultures Urine culture 04/26/17 sofie glabrata Blood culture 04/29/17 1 out of 4 bottles staph aureus Sputum culture 04/30/17 staph aureus and Serratia. Blood cultures 2, sputum 1 and urine 05/08 pending -> Serratia, treated. off abx. MSK: Left Intertroch Hip Fx s/p IMN Vitamin D deficiency Prophylaxis: SCDs. Enoxaparin 40 mg sq daily-cleared by Dr. Ananda SANDS - lansoprazole Overall impression: Devastating CVA. No improvement. poor prognosis. very difficult wean given age, comorbidities and deconditioning. PEG placed. No change in neuro status. Medicaid pending for placement. Charles Pedraza MD May 26, 2017 08:25
[2017-05-26] MEDS: INSULIN DETEMIR 100 UNITS/ML VIAL SQ SCH ×2 (08:30→21:43)
[2017-05-26] MEDS: LANSOPRAZOLE SOLUTAB 30 MG TAB NG SCH (08:30)
[2017-05-26] MEDS: ASPIRIN 325 MG TAB DOBHOFF SCH (08:30)
[2017-05-26] MEDS: CHOLECALCIFEROL (VIT D3) 5000 UNIT CAP PO SCH (08:30)
[2017-05-26] MEDS: BENEPROTEIN POWDER 1 PACK G-TUBE SCH ×3 (08:30→18:08)
[2017-05-26] MEDS: DOCUSATE SODIUM 100 MG/10 ML UDC PO SCH ×3 (08:30→19:18)
[2017-05-26] MEDS: CALCIUM/VITAMIN D 250 MG/125 U TAB PO SCH ×3 (08:30→18:06)
[2017-05-26] MEDS: SODIUM CHLORIDE 0.9% FLUSH 5 ML FLUSH IV FLUSH SCH ×2 (08:31→19:18)
[2017-05-26] MEDS: cefTRIAXone INJ 1,000 MG in SODIUM CHLORIDE 0.9% INJ 100 ML IV SCH (09:37)
--- NOTE | 2017-05-26 09:43 | HHI.FPPN ---
Subjective Remarks No acute events overnight in ICU. 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 The patient continues to be nonverbal with eyes open. Nursing denies any acute mental status changes overnight. Nursing denies any fever/chills overnight. Objective Vitals Vital Signs Date Time Temp Pulse Resp B/P (MAP) Pulse Ox O2 Delivery O2 Flow Rate FiO2 05/26/17 08:00 40 05/26/17 08:00 99.3 88 29 158/77 (104) 99 05/26/17 08:00 99 Mechanical Ventilator 40 05/26/17 08:00 85 05/26/17 06:00 83 05/26/17 04:00 40 05/26/17 04:00 81 05/26/17 04:00 99.1 81 24 166/74 (104) 97 05/26/17 03:30 100 40 05/26/17 02:15 186/84 (118) 05/26/17 02:00 74 05/26/17 00:00 73 05/26/17 00:00 97.9 73 20 161/74 (103) 98 05/26/17 00:00 40 05/25/17 23:54 99 40 05/25/17 22:00 73 05/25/17 21:15 40 05/25/17 21:13 95 Ventilator 40 05/25/17 21:13 95 40 05/25/17 20:00 98.4 72 23 141/63 (89) 90 05/25/17 20:00 72 05/25/17 19:23 96 T-Piece 50 05/25/17 18:00 78 05/25/17 16:34 100 T-piece 50 05/25/17 16:00 77 05/25/17 16:00 98.8 76 22 134/61 (85) 99 05/25/17 15:54 100 40 05/25/17 14:00 76 05/25/17 12:00 91 05/25/17 12:00 35 05/25/17 12:00 98.5 91 19 111/58 (75) 99 05/25/17 11:15 50 40 05/25/17 11:11 96 40 05/25/17 10:45 45 05/25/17 10:00 82 I/O 9/2405/25/17 05/25/17 05/26/17 05/26/17 05/26/17 07:00 15:00 23:00 07:00 15:00 23:00 Intake Total 692 ml 1103 ml 1071 ml Output Total 850 ml 950 ml 950 ml Balance -158 ml 153 ml 121 ml Tube Feeding 492 ml 503 ml 471 ml Other 200 ml 600 ml 600 ml Output Urine Total 850 ml 950 ml 950 ml # Bowel Movements 6 4 5 Result Diagram: 05/23/17 0517 05/24/17 0436 Objective Remarks CONSTITUTIONAL/GEN: Nonverbal, lying in bed with tracheostomy and PEG tubes in place. Patient's eyes are open today,still unarousable with light touch or speech, eyes do not track HEAD: Normocephalic. Atraumatic. Right side facial droop LUNGS: On vent with CPAP trials. Coarse breath sounds bilaterally but moving air well CARDIOVASCULAR: Regular rate and rhythm. Lower extremity bilateral pitting edema improved over the weekend. Bilateral hands with 2+pitting edema. GI/ABD: hyperactive BS w/o guarding or rebound. no grimacing with palpation. Glucerna 1.5 tube feed @ 45ml/hr. Abdominal distention less prominent now. 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 Moves left UE and LE spontaneously and intermittently. Does not withdraw right hand. MUSC: SCDs on bilateral lower extremities. Pedal pulses present. Pain with movement of L hip SKIN: Sacral pressure ulcer extends from anus to coccyx. Procedures ORIF 04/21/17 Intubation 04/30/17 A/P Assessment and Plan 76 y/o female with HTN, DM, CVA admitted for DKA and hip fracture. Sadly, patients with hip fractures have other problems and have a high chance of fatal conditions near the time of their fractures. Hip fractures are often a marker for other frailty. Now with massive left MCA stroke, right hemiplegia and midline shift resolving. Neuro and ratoprinter consulted. Working with palliative care and daughter for goals of care. 05/07 CT abdomen/pelvis w/large pneumothorax on left side decompressed with chest tube. Chest tube pulled 05/12. Tracheostomy placed 05/15. PEG tube 05/16. -Overall poor prognosis, pursuing goals of care discussion with daughter (HCPOA) , but at this time daughter wishes continued intervention -05/09 - extensive discussion with daughter today indicates no willingness to pursue comfort measures only. Daughter continues to ask for aggressive management of her mother's condition; will continue to engage in this discussion -05/11--CXR w/bilateral pleural effusions vs pulmonary edema--diuresis ordered -05/14 -- little interval change. Wt down from 70 kg on 05/10 to 59kg today. CPAP trials progressing. Family meeting with daughter yielded no change in code status or goals of care. Plan is to re-join with discussing trach and PEG feeding tube with daughter in 2-3 days time. -05/15 -- Daughter consented to tracheostomy and procedure was performed today. CPAP trials still progressing. No other changes. -05/16 -- Tracheostomy in place, pt with eyes open today responding to simple commands. GI consulted with PEG tube planned for today. -05/17 - starting PEG tube feeds -05/18 - Glucerna 1.5 feed through PEG tube at 45ml/hr; changing moser out today (10 days); opens eyes but cannot track; does not respond to commands; still on Ancef IV for PEG and trach procedures. - 05/19 - no interval change in status. Malth[employer] Laborer to remove moser and rectal tube today. Pursuing movement to [facility]. -05/20 - no interval change, but she is increasing her stamina on CPAP trials to several hours now. In/out caths being placed for UOP. 05/21 no medicaid pending 05/22 - no interval change 05/23 - daughter still desires full code measures. Increasing endurance on CPAP trials; however, patient still requiring vent. CPAP trials appear to acutely fatigue pt. Malthouse Laborer performing trial of T-tube off CPAP; pt failed this intervention yesterday as she was breathing too shallow. 05/24 - spoke with daughter regarding future plan of care for her mother 05/25 - Moser inserted; UA, C diff PCR ordered Discharge Planning Pending stroke progression and discussion for goals of care she has no Insurance. Medicaid was applied and she cannot have this as she is not a [place] citizen and has not lived in the [place] long enough. she cannot go to a vent facility nor a SNF without Insurance. Case management explained that to her daughter. Per her daughter, she continues to believe she will improve back to her norm at some point and wants to keep her with aggressive measures. she is looking for rehab as she believes her mother can improve Problem List: (1) Acute CVA (cerebrovascular accident) ICD Codes: I63.9 - Cerebral infarction, unspecified Status: Acute Plan: -Consulted ratoprinter, appreciate recs -s/p Tracheostomy 05/15 and PEG tube insertion 05/16 -Poor prognosis -Neurosurgery consulted -Recommended conservative management -Tube feeds: Glucerna 1.5 tube feed @ 45ml/hr for diet via PEG tube -change to fluid through PEG tube, will start free water (300cc q6h ) as she needs maintenance fluid of 95 ml/hr -Director Learning And Development consulted for management and recs on a steady 45 cc/hr of Glucerna 24 hours a day -Consulted palliative care-appreciate recs. appreciate help in talking to her daughter -Case discussed with daughter in-person about goals of care, limited treatment options, and poor prognosis. hope to be involved in future family discussions, have let palliative know this -Daughter continues to want aggressive care. Wishes to continue aggressive medical treatment despite prognosis -Neurology consulted-appreciate recs -Rectal ASA -Lovenox 40mg daily History and imaging: Patient found minimally responsive with neurological deficits around 0820 04/24. Stat CT of head was ordered, which showed large left MCA infarct. Diffuse edema throughout the left MCA distribution, suggested completed infarct. This was discussed and was not a candidate for intracranial intervention. CT (04/30): Reduction in midline shift to 11mm. Unchanged large left MCA infarction. CT head (05/06) shows: Evolving large left-sided MCA territory infarct with minimally improved [id number] subfalcine shift. No intercurrent hemorrhage or other acute abnormality. Echocardiogram- The left ventricular systolic function is low normal with an estimated ejection fraction in the range of 50-55%. Mild concentric left ventricular hypertrophy. Normal left ventricular size. Luhyg-mp-sijr mitral valve regurgitation. Carotid Artery US- No hemodynamically significant carotid stenosis (2) On mechanically assisted ventilation ICD Codes: Z99.11 - Dependence on respirator [ventilator] status Plan: Impression: s/p trach procedure 05/15. Continues to fail CPAP trials, but is improving stamina gradually to tolerate it for longer periods; 40% FiO2 -Continue weaning trials as tolerated trial of T-tube on trach off of CPAP mode, but pt was breathing too shallowly (3) Diarrhea ICD Codes: R19.7 - Diarrhea, unspecified Plan: Nurse reported diarrhea. -C diff stool PCR negative (4) Sacral decubitus ulcer ICD Codes: L89.159 - Pressure ulcer of sacral region, unspecified stage Plan: Patient with small sacral decubitus ulcer over the coccyx that appears to be worsening; wound care nurse saw today, ordered special air mattress and other interventions to improving healing -Wound care consult ordered and appreciated she does not move at all and is on the vent with the trach so she cannot be positioned on her stomach without effecting her breathing. (5) Type 2 diabetes mellitus ICD Codes: E11.9 - Type 2 diabetes mellitus without complications Status: Chronic Plan: Admitted for DKA which has now resolved. Hemoglobin A1C is 12.9. Diabetes Type I is uncontrolled. -05/22 - Started pt on Levemir 7 units AM + 7 units PM--received call at 8PM stating pt BG level at 60 and hypoglycemia protocol started; -Reduced Levemir to 5 units AM + 5 units PM -Low dose insulin sliding scale with goal blood glucose between 140 and 180 -Glucerna for PEG tube feedings @ 45 ml/hr as per GI recs. -as she is on tube feeds 24 hours a day, consideration could be given to long acting insulin as the main insulin. glucoses should be allowed to run a bit higher than the average ICU patient as she is not post op cardiac or other such problem and her prognosis is abysmal and most glucose control is to prevent snf (10 years down the road) problems. would definitely not want hypoglycemia (6) Hypertension ICD Codes: I10 - Essential (primary) hypertension Status: Acute Plan: BPs hypertensive overnight, required Vasotec -Antihypertensives to keep SBP<180 -Lasix or Bumex for diuresis as required (7) Atrial fibrillation ICD Codes: I48.91 - Unspecified atrial fibrillation Status: Resolved Plan: Hx of intermittent Afib. Resolved with administration of Lopressor. -Continue to monitor -Lopressor PRN (8) Hip fracture ICD Codes: S72.009A - Fracture of unspecified part of neck of unspecified femur , initial encounter for closed fracture Status: Resolved Plan: S/P left hip reduction and intramedullary nail fixation on 04-21-17 -Consulted orthopedics-appreciate recs * WBAT * Daily dressing changes -Calcium/Vitamin D -Fluids as above -Tylenol, morphine PRN pain, it is difficult to tell if she is having pain (9) UTI (urinary tract infection) ICD Codes: N39.0 - Urinary tract infection, site not specified Status: Acute Plan: 05/25 Nurse reported malodorous urine; patient has required straight cath' s q6h for the past 5 days. -UA: + leuk est, + nitrate - moser in place - f/u Uculture - Rocephin 1g q24h (10) Fluids, Electrolytes, and Nutrition Status: Acute Plan: Fluids: through OG tube Electrolyte: on electrolyte protocol Nutrition: Glucerna tube feeds will add free water DVT ppx: SCDs/lovenox 40 mg daily CVA ppx: aspirin 325 mg GI ppx: protonix Colace, fleet enema mineral oil Problem Qualifiers (1) Sacral decubitus ulcer: Qualified Codes: L89.151 - Pressure ulcer of sacral region, stage 1 (2) Type 2 diabetes mellitus: Qualified Codes: E11.9 - Type 2 diabetes mellitus without complications (3) Hypertension: Qualified Codes: I10 - Essential (primary) hypertension (4) Atrial fibrillation: Qualified Codes: I48.0 - Paroxysmal atrial fibrillation (5) Hip fracture: (6) UTI (urinary tract infection): Qualified Codes: N39.0 - Urinary tract infection, site not specified Tova Ortiz MD R2 May 26, 2017 09:43
[2017-05-26 14:08] LABS: HEMATOCRIT 27.7 % (35.0-46.0); HEMOGLOBIN 8.9 GM/DL (11.6-15.3); MEAN CELL VOLUME 96.6 FL (80.0-100.0); MEAN CORPUSCULAR HEMOGLOBIN 31.2 PG (27.0-34.0); MEAN CORPUSCULAR HGB CONC 32.2 % (32.0-36.0); MEAN PLATELET VOLUME 8.7 FL (7.0-11.0); PLATELET COUNT 420 TH/MM3 (150-450); RED BLOOD COUNT 2.87 MIL/MM3 (4.00-5.30); RED CELL DISTRIBUTION WIDTH 17.5 % (11.6-17.2); WHITE BLOOD COUNT 14.2 TH/MM3 (4.0-11.0)
[2017-05-26 14:23] LABS: BICARBONATE 29.5 MEQ/L (21.0-32.0); CALCIUM 7.6 MG/DL (8.5-10.1); CREATININE 0.26 MG/DL (0.50-1.00)
[2017-05-26] MEDS: FUROSEMIDE 40 MG/5 ML UNIT DOSE CUP NG SCH (15:04)
[2017-05-27] VITALS (19 sets, daily range): BP systolic 138–179; BP diastolic 60–85; PULSE 74–94; RESP 14–18; TEMP 98.4–99.3; O2SAT 98–100
[2017-05-27] MEDS: ENALAPRILAT 1.25 MG/ML VIAL IV PUSH PRN (01:36)
[2017-05-27 05:28] LABS: BICARBONATE 27.3 MEQ/L (21.0-32.0); CALCIUM 7.7 MG/DL (8.5-10.1); CREATININE 0.31 MG/DL (0.50-1.00)
[2017-05-27] MEDS: FREE WATER G-TUBE SCH ×5 (06:00→23:57)
--- NOTE | 2017-05-27 07:51 | HHI.CCPN ---
Subjective Remarks/Hospital Course 04/24: 76-year-old female with a medical history significant for prior stroke, diabetes mellitus who was admitted with DKA and a hip fracture for which she underwent ORIF on 04/21. Patient developed altered mental status and was last noted to be okay around 5:30 AM. Subsequently there was a change in her mental status and she was noted to not be moving her right side for which stroke alert was called. Head CT showed large left MCA territory ischemic infarct with edema. Patient was transferred to the ICU by family medicine service in the critical care consult was requested. I evaluated the patient following arrival to the ICU. At that time she was laying in bed with her eyes open however not following commands and had a dense right hemiplegia. Patient was also evaluated by Dr. Malave from neurology. I further discussed current event with patient's daughter following her arrival to the ICU. Per the daughter patient has been living with her since her stroke in 2014 and does ambulate however has been having problems with memory and incontinence as well as gait difficulties. She does not feel patient would want intubation or tracheostomy or PEG tube. 04/25: Patient remains encephalopathic, awake though not following commands consistently. Dense right hemiplegia persists. Appears to be awake enough to protect airway currently. Patient's daughter rescinded DNR and made a full code last evening. 04/26: Remains encephalopathic, not following commands. On Dobbhoff for tube feeds at 30 cc per hour. Had urinary retention and drained 2 L of urine after placing Moser catheter today. CT head done this morning with large left MCA territory infarct with left to right midline shift and significant cerebral edema. Hyperglycemia noted. Patient given mannitol earlier for increasing cerebral edema. 04/27: Remains encephalopathic, not following commands. On Dobbhoff tube feeds at 30 cc per hour. When into A. fib with RVR last night which responded with Lopressor 5 mg IV 1 dose. 04/28: Remains encephalopathic, arousable, not following commands. Moves left upper extremity spontaneously. Tolerating Dobbhoff tube feeds. Remains on nasal cannula. 04/29: Encephalopathic, eyes be arousable, moves left upper extremity spontaneously and occasionally opens eyes. Dense right hemiplegia and aphasia persists. On nasal cannula. Dobbhoff tube feeds being advanced. Patient was transfused 1 unit PRBCs yesterday. Urine culture with yeast from yesterday for which fluconazole being started. Had brief run of A. fib with RVR which improved with Lopressor IV, currently in sinus rhythm. 04/30: Worsening hypoxemic respiratory failure, currently on partial nonrebreather. Remains lethargic. WBC count increased from 14.6 today 20.7. Chest x-ray shows bilateral worsening infiltrates and small pleural effusions. Sodium 154, weight up by 8 KG. Albumin 1 mg Bumex 1. Also one dose of albumin. Remains in sinus tachycardia. Tmax 101.3 05/01: Patient was intubated yesterday for lack of airway protection, and severe hypoxemic respiratory failure from aspiration pneumonia involving multiple lobes. Patient is on the vent lethargic, no spontaneous eye opening. Chest x- ray remains unchanged. Remains intermittently febrile Tmax 101.3. WBC count improving 05/02: Remains critically ill with no improvement in mental status. Spiking fever of 101.7. Blood culture and sputum culture with staph aureus sputum also growing GNR, WBC count 22,000 now indicating worsening sepsis. Daughter still requesting aggressive care. Palliative care is following 05/03: S/P large area dominant hemisphere CVA. No neurological improvement. Now with pneumonia (infiltrate, fever, leukocytosis) and appropriate abx coverage. She will have a hard time surviving the hip fx, CVA, and pneumonia. Palliative Care needs to be a mainstay of our plan. 05/04: No improvement in neuro status. Sputum C&S allows us to narrow abx coverage to levaquin alone. Lungs remain quite congested. Enteral nutrition tolerated. 05/05: No improvement in neuro status. Moves left arm spontaneously. Flaccid right side. Unresponsive. Persistent mild hypoglycemia - will cut Levemir 50%. Abdomen more distended, check KUB. 05/06: CT head with massive left MCA infarction and > 1 cm shift in right handed woman. She opens eyes, does not track. 05/07: Patient open eyes. Attempts to respond. [place]ian speaking. Tolerating tube feeds. Positive bowel movement. Volume overloaded. 05/08: Tmax 99.4. Potassium being replaced. Ultrasound gallbladder currently pending. Transaminases are trending downward. Gently diurese. 05/09: Alk phos decreasing. Remains with good urine output. Neurological status not improving. 05/10: Fixed neuro deficit unchanged. Profound CVA. 05/11: Appears to track with eyes today. No improvement in motor function. Remains very edematous, diuretics doubled. 05/12: Continued thick secretions. Afebrile, leukocytosis resolved. 05/13: CT head with completed left MCA stroke, persistent edema and 5 mm shift away. Does not last long on SBTs - major decision now is trach/PEG. 05/14: Daughter has decided to proceed with trach and PEG. I have been pessimistic with her about chances for a meaningful recovery. 05/15: Plan for trach today. No change in neuro status. Still ventilator dependent. 05/16: Trach completed. Await PEG and disposition. 05/17: PEG placed 05/16. Start TFs today after nutrition consult. Work to place patient. 05/18: No improvement. Does open eyes, no focus or tracking. Completed large dominant (left) hemisphere CVA in right handed woman with severe deficit. Medicaid pending status, [employer] is following. 05/19: no improvements in neuro exam. ready for LTAC. will d/c moser and rectal tubes. 05/20: no changes or improvements. very difficult placement due to patient not [place] citizen. 05/21: no improvements. resting on vent overnight due to distress. 05/22: no neurologic changes. no improvements. attempted T-piece which failed after 10 minutes. 05/23: no improvements. poor prognosis. poor neuro exam. still failing weaning trials. Subjective 05/24: no improvements or changes. still failing t-piece trials. 05/25: No acute changes of improvement overnight. Failed CPAP due to apnea, tried again currently tolerating. Neurological exam unchanged. 05/26: No improvement in neurological function. 05/27: Patient has required Moser catheter because of breakdown of skin on upper thighs and groin. Urine has become infected, will treat. Objective Vital Signs Date Time Temp Pulse Resp B/P (MAP) Pulse Ox O2 Delivery O2 Flow Rate FiO2 05/27/17 06:00 80 05/27/17 04:05 100 40 05/27/17 04:00 99.2 14 164/79 (107) 05/26/17 19:00 Mechanical Ventilator Intake and Output 05/27/17 05/27/17 05/28/17 08:00 16:00 00:00 Intake Total 1118 ml Output Total 1000 ml Balance 118 ml Result Diagram: 05/26/17 1344 05/27/17 0350 Imaging Last Impressions Chest X-Ray 05/07/17 0400 Signed Impressions: Service Date/Time: Sunday, May 07, 2017 04:38 - CONCLUSION: 1. Stable Low-lying ETT with tip approximately 1 cm above the valerie. 2. Mild interval progression of bilateral airspace consolidation exaggerated by patient rotation. 3. Increased small left pleural effusion. Alejo De La Vega MD Abdomen/Pelvis CT 05/07/17 0000 Signed Impressions: Service Date/Time: Sunday, May 07, 2017 13:23 - CONCLUSION: 1. Large left pneumothorax. 2. Bilateral lower lobe consolidation and bilateral moderate size pleural effusions. 3. Significant soft tissue thickening of the right lateral chest wall and left gluteus muscle. 4. Mild ascites. The findings were called to Dr. Carney. Deangelo Zamora MD Head CT 05/06/17 0000 Signed Impressions: Service Date/Time: Saturday, May 06, 2017 04:18 - CONCLUSION: 1. Evolving large left-sided MCA territory infarct with minimally improved [id number] subfalcine shift. 2. No intercurrent hemorrhage or other acute abnormality. Alejo De La Vega MD Abdomen X-Ray 05/06/17 0000 Signed Impressions: Service Date/Time: Saturday, May 06, 2017 17:42 - CONCLUSION: Dobbhoff feeding tube tip near the gastroduodenal junction. Obdulio Simms MD Hip and Pelvis X-Ray 05/05/17 0000 Signed Impressions: Service Date/Time: Friday, May 05, 2017 10:59 - CONCLUSION: Left proximal femur trochanteric/subtrochanteric fracture lucency visualized. Postoperative changes. Choco Mustafa MD Chest CT 04/30/17 0000 Signed Impressions: Service Date/Time: Sunday, April 30, 2017 09:20 - CONCLUSION: 1. Bilateral pulmonary infiltrates more pronounced within the lower lobes with tiny bilateral pleural effusions. Material seen filling the lower lobe bronchi bilaterally either related to purulent material or perhaps mucus plugging. Deangelo Wren Jr., MD Carotid Artery Ultrasound 04/24/17 0000 Signed Impressions: Service Date/Time: April 09:45 - CONCLUSION: 1. No hemodynamically significant carotid artery stenosis. Arnie Middleton MD Hip X-Ray 04/21/17 0000 Signed Impressions: Service Date/Time: Friday, April 21, 2017 11:36 - CONCLUSION: Fluoroscopic images during placement of intramedullary siomara left femur. Benja Ramsey MD Objective Remarks Gen: 76-year-old female HEENT: nc. at. perrl. mucous membranes moist. Neck: trached. site clean and dry. Chest/pulmonary: unlabored. on ventilator. Cardiovascular: RRR. No murmurs, no JVD. GI/abdomen: Distended. Nontender. Extremities: Warm bilaterally, anasarca 2+ upper and 2+ lower extremity edema. Incision sites over left hip, thigh ORIF site clean dry and intact. Skin: Breakdown of skin on medial aspect of both thighs. Irritated by urine. Neuro: On no sedation. Has eye opening and grimaces spontaneously. Dense right hemiplegia noted. Withdraws left upper extremity, Withdraws LLE. No change. Pupils 2 mm, react. A/P Assessment and Plan Neuro/Psych: Left MCA CVA - 12 mm of [id number] subfalcine herniation - right-sided hemiplegia Acute encephalopathy History CVA Follow neuro status closely. Continue Aspirin 325 mg by mouth daily Patient was not a candidate for thrombolysis per discussion with neurology and radiology. Repeat head CT 05/05 showed slight improvement in the midline shift and mass effect Neurosurgery consulted 04/30- Dr. López, recommended conservative management Neurology following - Dr. Malave Cardiovascular: Hypertension IV fluids currently on hold due to edema As needed Antihypertensives to keep systolic blood pressure less than to 160 mmHg Echocardiogram 04/24 - EF 50 to 55%. Mild concentric LVH. Pulmonary: Acute hypoxic respiratory failure - aspiration possible HCAP Large left pneumothorax status post #10 Kinyarwanda chest tube 05/07 Ventilator bundle. Ipratropium/albuterol aerosols every 6 hours with albuterol aerosols every 2 hours Chest tube d/c'd 05/12 Daily SBTs. failing for tachypnea. will continue trials daily. TP if CPAP tolerated GI/liver: Elevated transaminases Hypoalbuminemia Moderate to severe protein calorie malnutrition Dobbhoff for tube feedings and medications. Continue tube feeding with Glucerna 1.5 goal 45 cc an hour Lansoprazole 30 mg daily for GI regimen Docusate sodium 100 twice a day, Senokot 8.6 twice a day, polyethylene glycol 17 grams twice a day and lactulose 30 cc 4 times a day Evaluate CT abdomen/pelvis 05/07 - mild ascites. Large left hemothorax. Right greater than left pleural effusion. LFTs improving. Alk Phos elevated again 05/18. continue fiber in diet. Endocrine: Diabetes mellitus Detemir 8 units subcutaneous daily. SSI high dose q4h. Holding glimepiride 4 mg by mouth daily /Renal/FEN: Hypokalemia Strict intake output, monitor and replete electrolytes, follow BUN/creatinine. Moser catheter placed for urinary retention on 04/26. Moser removed 05/19 with q6h straight cath. Heme: Chronic Rivaroxaban use Leukocytosis Normocytic anemia Thrombocytosis Follow CBC and coags. On subcutaneous enoxaparin Hemoglobin currently stable. No indications for transfusion of blood proximally at this time ID: MSSA bacteremia Serratia/staph aureus pneumonia C glabrata UTI Pertinent cultures Urine culture 04/26/17 sofie glabrata Blood culture 04/29/17 1 out of 4 bottles staph aureus Sputum culture 04/30/17 staph aureus and Serratia. Blood cultures 2, sputum 1 and urine 05/08 pending -> Serratia, treated. Urine 05/26: GNR Ceftriaxone started 05/26 MSK: Left Intertroch Hip Fx s/p IMN Vitamin D deficiency Prophylaxis: SCDs. Enoxaparin 40 mg sq daily-cleared by Dr. Ananda SANDS - lansoprazole Overall impression: Devastating CVA. No improvement. Poor prognosis. Very difficult wean given age, comorbidities and deconditioning. PEG placed. No change in neuro status. Medicaid pending for placement. Charles Pedraza MD May 27, 2017 07:51
[2017-05-27] MEDS: INSULIN ASPART SUPPLEMENTAL SCALE SQ SCH ×4 (08:29→21:35)
[2017-05-27] MEDS: INSULIN DETEMIR 100 UNITS/ML VIAL SQ SCH ×2 (08:29→21:22)
[2017-05-27] MEDS: FUROSEMIDE 40 MG/5 ML UNIT DOSE CUP NG SCH (08:32)
[2017-05-27] MEDS: LANSOPRAZOLE SOLUTAB 30 MG TAB NG SCH (08:32)
[2017-05-27] MEDS: CHOLECALCIFEROL (VIT D3) 5000 UNIT CAP PO SCH (08:32)
[2017-05-27] MEDS: DOCUSATE SODIUM 100 MG/10 ML UDC PO SCH ×2 (08:32→21:00)
[2017-05-27] MEDS: CALCIUM/VITAMIN D 250 MG/125 U TAB PO SCH ×3 (08:32→17:46)
[2017-05-27] MEDS: cefTRIAXone INJ 1,000 MG in SODIUM CHLORIDE 0.9% INJ 100 ML IV SCH (08:32)
[2017-05-27] MEDS: ASPIRIN 325 MG TAB DOBHOFF SCH (08:32)
[2017-05-27] MEDS: BENEPROTEIN POWDER 1 PACK G-TUBE SCH ×3 (08:33→17:46)
[2017-05-27] MEDS: SODIUM CHLORIDE 0.9% FLUSH 5 ML FLUSH IV FLUSH SCH ×2 (08:33→21:22)
--- NOTE | 2017-05-27 11:57 | HHI.HCPN ---
Reason for visit a. To assist with evaluation and management of symptoms including: Debility and pain. b. To assist medical decision maker(s) with: better understanding of current medical conditions; weighing benefits/burdens of medical treatment options; making medical treatment decisions. . Subjective/Interval History Mrs. Hein is a 76-year-old female with a past medical history of hypertension, diabetes mellitus and CVA who presented to the ED on 04/20/17 via EMS for evaluation of after a fall. Upon ED admission, random glucose 559. Patient underwent Left hip reduction and intramedullary nail fixation on 04/21/17. Clinical course complicated by large left MCA infarct with diffuse edema throughout the left MCA distribution. Neurology, Dr. Malave consulted. Patient not a candidate for intervention, not a candidate for IV TPA. As per neurology "Christina 4Id the prognosis with a stroke of the size is poor". Palliative care consulted for further clarifications of goals of care given poor prognosis. Interval course: She underwent CPAP trial 05/26 starting at 9:50 AM ending at 9: 59 AM with 8 of PEEP and 8 of pressure support, 40% FiO2 and failed trial after 9 minutes due to tachypnea with respiratory rate in high 30s. On 05/25 her CPAP trial was stopped within 2 minutes due to apnea, then resumed 2 hours later and she tolerated T piece trial for 8 hours. Urinalysis showed Citrobacter Freundii , showing resistance to cephalosporins. Patient is currently on Rocephin pending culture and sensitivity. No protective reflexes noted on physical exam. Case discussed with bedside RN and senior case manager Doris Enriquez. . Family/friend interactions Discussed insurance findings with senior case manager and subsequently the daughter, Trice. Trice states she has just spoken to [employer] management manager and that the wrong application was submitted for SS I instead of Medicaid. She is planning to visit [place] today to review paperwork and application. She states her mother came to this country several years ago on her passport as a visitor and shortly thereafter converted her status to permanent resident. She continues to evaluate insurance options for long-term care. . Advance Directives Living Will: Never completed Health Care Surrogate: Never completed Durable Power of Salvager: Never completed Advance Directive Specifics Health Care Surrogate(s): No advance directives completed. As per [place] statute, healthcare proxy decision making falls to patient's only daughter Norma Salvador. . Documented care wishes: No living will completed. . Objective Vital Signs Date Time Temp Pulse Resp B/P (MAP) Pulse Ox O2 Delivery O2 Flow Rate FiO2 05/27/17 10:00 77 05/27/17 08:53 100 50 05/27/17 08:00 99.0 78 14 163/78 (106) 100 05/27/17 08:00 78 05/27/17 08:00 40 05/27/17 07:00 99 Mechanical Ventilator 40 05/27/17 06:00 80 05/27/17 04:05 100 40 05/27/17 04:00 40 05/27/17 04:00 90 05/27/17 04:00 99.2 90 14 164/79 (107) 100 05/27/17 02:00 94 05/27/17 01:02 100 40 05/27/17 00:00 82 05/27/17 00:00 40 05/27/17 00:00 98.4 82 14 179/79 (112) 99 05/26/17 22:20 100 40 05/26/17 22:00 88 05/26/17 20:00 40 05/26/17 20:00 88 05/26/17 20:00 99.1 88 14 165/77 (106) 100 05/26/17 19:05 100 40 05/26/17 19:00 99 Mechanical Ventilator 40 05/26/17 18:00 83 05/26/17 16:00 97 40 05/26/17 16:00 40 05/26/17 16:00 99.0 80 14 144/67 (92) 98 05/26/17 16:00 80 05/26/17 14:00 79 05/26/17 12:00 72 05/26/17 12:00 98.8 72 14 145/67 (93) 100 05/26/17 12:00 40 Intake & Output 05/27/17 05/27/17 07:00 19:00 Intake Total 1118 ml Output Total 1000 ml Balance 118 ml Tube Feeding 518 ml Other 600 ml Output Urine Total 1000 ml # Bowel Movements 3 Physical Exam CONSTITUTIONAL/GENERAL: This is an elderly female resting in bed. Turns head upon entrance to room, does not focus, no corneal protective reflexes. Moves independently, not with purpose. TUBES/LINES/DRAINS: PIV's. Tracheostomy, PEG tube, left soft wrist restraint. SKIN: No jaundice, rashes, or lesions. Ecchymoses on upper extremities. Skin temperature appropriate. Not diaphoretic. Surgical incision to left hip, open to air. Right leg with blister on medial aspect. NECK: Trachea midline. Supple. Tracheostomy in place. CARDIOVASCULAR: Regular rate and rhythm. Peripheral pulses symmetric. RESPIRATORY/CHEST: Symmetric, tracheostomy. Rhonchorous breath sounds. GASTROINTESTINAL: Abdomen soft, round, mildly distended. Bowel sounds present. PEG tube in place. GENITOURINARY: Without palpable bladder distension. Leavitt inserted for skin protection. MUSCULOSKELETAL: Extremities without clubbing, cyanosis. Edema to all 4 extremities. Right hand worse than left hand. NEUROLOGICAL: Withdraws with LUE and LLE. Flaccid to right side. Not sedated. Eyes opening spontaneously, not to command, not focusing. PSYCHIATRIC: Unable to evaluate secondary to clinical condition. Left upper restraint. Diagnostic Tests Laboratory Laboratory Tests Test 05/25/17 15:00 05/26/17 13:44 05/27/17 03:50 Urine Color YELLOW (YELLW/STRAW) Urine Turbidity HAZY (CLEAR) Urine pH 6.0 (5.0-8.5) Urine Specific [place] 1.012 (1.002-1.035) Urine Protein NEG mg/dL (NEG-TRACE) Urine Glucose (UA) NEG mg/dL (NEG) Urine Ketones NEG mg/dL (NEG) Urine Occult Blood SMALL (NEG) Urine Nitrite POS (NEG) Urine Bilirubin NEG (NEG) Urine Urobilinogen LESS THAN 2.0 MG/DL (LESS Urine Leukocyte Esterase LARGE (NEG) Urine RBC 13 /hpf (0-3) Urine WBC 49 /hpf (0-5) Urine WBC Clumps RARE (NONE) Urine Squamous Epithelial Cells <1 /hpf (0-5) Urine Bacteria MANY /hpf (NONE) Urine Hyaline Casts 4 /lpf (RARE) Urine Mucus FEW /lpf (OCC) Microscopic Urinalysis Comment CATH-CULTURE IND Stool C. difficile Toxin (PCR) NEGATIVE (NEGATIVE) Stl C. difficile Toxin Epiderm 027 PRESUMPTIVE NEGATIVE White Blood Count 14.2 TH/MM3 (4.0-11.0) Red Blood Count 2.87 MIL/MM3 (4.00-5.30) Hemoglobin 8.9 GM/DL (11.6-15.3) Hematocrit 27.7 % (35.0-46.0) Mean Corpuscular Volume 96.6 FL (80.0-100.0) Mean Corpuscular Hemoglobin 31.2 PG (27.0-34.0) Mean Corpuscular Hemoglobin Concent 32.2 % (32.0-36.0) Red Cell Distribution Width 17.5 % (11.6-17.2) Platelet Count 420 TH/MM3 (150-450) Mean Platelet Volume 8.7 FL (7.0-11.0) Hematology Comments Blood Urea Nitrogen 33 MG/DL (7-18) 32 MG/DL (7-18) Creatinine 0.26 MG/DL (0.50-1.00) 0.31 MG/DL (0.50-1.00) Random Glucose 134 MG/DL (74-106) 185 MG/DL (74-106) Calcium Level 7.6 MG/DL (8.5-10.1) 7.7 MG/DL (8.5-10.1) Sodium Level 141 MEQ/L (136-145) 139 MEQ/L (136-145) Potassium Level 4.3 MEQ/L (3.5-5.1) 3.8 MEQ/L (3.5-5.1) Chloride Level 105 MEQ/L (98-107) 104 MEQ/L (98-107) Carbon Dioxide Level 29.5 MEQ/L (21.0-32.0) 27.3 MEQ/L (21.0-32.0) Anion Gap 7 MEQ/L (5-15) 8 MEQ/L (5-15) Estimat Glomerular Filtration Rate 257 ML/MIN (>89) 209 ML/MIN (>89) Result Diagram: 05/26/17 1344 05/27/17 0350 Microbiology Microbiology Date/Time Source Procedure Growth Status 05/25/17 15:00 Urine Catheterized Urine Urine Culture - Final Citrobacter Freundii Complete Imaging Last Impressions Head CT 05/15/17 0000 Signed Impressions: Service Date/Time: May 19:59 - CONCLUSION: 1. 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 2. No bleed or new/acute infarct. Obdulio Simms MD Chest X-Ray 05/15/17 0000 Signed Impressions: Service Date/Time: May 12:38 - CONCLUSION: 1. A tracheostomy tube in good position with its tip 2 cm above the norma. 2. Stable scattered pulmonary infiltrates bilaterally. 3. Dobbhoff feeding tube has its tip in the distal stomach. Enzo [place]ooq MD Abdomen X-Ray 05/10/17 0000 Signed Impressions: Service Date/Time: Wednesday, May 10, 2017 22:08 - CONCLUSION: Tip of Dobbhoff catheter is in the antrum of the stomach. Sage Adler MD Gall Bladder Ultrasound 05/08/17 0000 Signed Impressions: Service Date/Time: May 08:23 - CONCLUSION: Focally unremarkable appearance of the gallbladder Obdulio Chun MD Abdomen/Pelvis CT 05/07/17 0000 Signed Impressions: Service Date/Time: Sunday, May 07, 2017 13:23 - CONCLUSION: 1. Large left pneumothorax. 2. Bilateral lower lobe consolidation and bilateral moderate size pleural effusions. 3. Significant soft tissue thickening of the right lateral chest wall and left gluteus muscle. 4. Mild ascites. The findings were called to Dr. Carney. Deangelo Zamora MD Hip and Pelvis X-Ray 05/05/17 0000 Signed Impressions: Service Date/Time: Friday, May 05, 2017 10:59 - CONCLUSION: Left proximal femur trochanteric/subtrochanteric fracture lucency visualized. Postoperative changes. Choco Mustafa MD Chest CT 04/30/17 0000 Signed Impressions: Service Date/Time: Sunday, April 30, 2017 09:20 - CONCLUSION: 1. Bilateral pulmonary infiltrates more pronounced within the lower lobes with tiny bilateral pleural effusions. Material seen filling the lower lobe bronchi bilaterally either related to purulent material or perhaps mucus plugging. Deangelo Wren Jr., MD Carotid Artery Ultrasound 04/24/17 0000 Signed Impressions: Service Date/Time: April 09:45 - CONCLUSION: 1. No hemodynamically significant carotid artery stenosis. Arnie Middleton MD Hip X-Ray 04/21/17 0000 Signed Impressions: Service Date/Time: Friday, April 21, 2017 11:36 - CONCLUSION: Fluoroscopic images during placement of intramedullary siomara left femur. Benja Ramsey MD Procedures * 05/16/17 -PEG tube placement * 05/15/17 -tracheostomy placement * 05/08/17 -left-sided chest tube/pigtail * 04/30/17 -endotracheal intubation * 04/21/17 -Left hip reduction and intramedullary nail fixation . Assessment and Plan Disease Oriented Problem List: (1) Acute respiratory failure (2) Acute CVA (cerebrovascular accident) (3) Pneumonia (4) Atrial fibrillation with RVR (5) Hypertension (6) Hip fracture Symptom Scale: (1) Pain 0-10 Scale: Unable to quantify Comment: Secondary to recent surgical intervention (2) Debility 0-10 Scale: Unable to quantify Comment: Progressive. (3) Shortness of breath 0-10 Scale: Unable to quantify Comment: Currently trached on mechanical ventilation. Failing T-Avilez trials. Pertinent Non-Medical Issues Psychosocial: Patient is originally from [facility]. Residing in [place] up until 2013 she moved to [place] to live with only daughter Trice. Patient is a , in 2006. Spiritual: No yarsani affiliation. Legal: No advance directives completed. Ethical issues impacting care: Patient unable to participating in medical decision-making secondary to clinical condition. Patient's daughter acting as healthcare proxy decision maker. . Important Contacts Daughter Norma Salvador . . Prognosis Mrs. Hein needs a 76-year-old female with a past medical history of hypertension, diabetes mellitus and prior CVA. Presented with left hip fracture , underwent ORIF. Clinical course complicated by large left MCA infarct with edema. Overall prognosis is poor for a meaningful neurological recovery or long -term survival given acute stroke, chronic ongoing comorbidities and advanced age. Patient appears hospice appropriate should family elects comfort-directed care. . Code Status: Full Code Plan * CODE STATUS: FULL CODE. Code status readdressed 05/27/17. Discussed risks, benefits and limitations of CPR given patient's clinical condition and poor prognosis. Patient's daughter electing full code. * HEALTHCARE DECISION-MAKING: Patient unable to participate in medical decision- making secondary to clinical condition given severe large stroke. No advance directives completed, patient is . As per [place] statute, healthcare proxy decision-making falls to patient's only daughter Trice Salvador. * GOALS OF CARE: 05/23/17 -Patient's daughter electing to continue aggressive management to include full code. Case has been discussed with senior case manager Doris Enriquez and bedside RN. Difficult disposition, long-term plans for this patient are impacted by her psychosocial situation, no coverage/no payer source for long -term placement or rehab. Daughter verbalized inability to receive patient at home. Per discussion with case management, daughter has been contacted by [facility]) and informed that patient only qualifies for emergency Medicaid which only covers patient while hospitalized. Per Case management, " [facility] staff, management is aware of the situation and are following pt and her daughter and that pt is at this time still in need of medical care and not ready for d/c". * SYMPTOMS: = Shortness of breath, multifactorial. Secondary to altered mental status/CVA, pneumonia, lethargy. Now trached and on mechanical ventilation. Patient on CPAP, failing T-Avilez trials = Pain, secondary to recent surgical intervention. = Debility, progressive. Likely to continue to worsen given recent acute stroke and additional complications. * Palliative care contact information has been provided to patient's daughter. * Palliative care will continue to follow-up for further clarifications of goals of care as patient's clinical condition continues to evolve. . Sherri Gamboa May 27, 2017 11:57
--- NOTE | 2017-05-27 12:18 | HHI.FPPN ---
Subjective Remarks Per nurse report, patient has been having smelly, pasty diarrhea. Patient has a red purulent sore around the left lower part of her tracheostomy, possibly an imbedded suture. Patient has her eyes closed and is unresponsive today. Patient was tolerating CPAP trial as I left the room. (Jose R Bennett MD R2) Objective Vitals Vital Signs Date Time Temp Pulse Resp B/P (MAP) Pulse Ox O2 Delivery O2 Flow Rate FiO2 05/27/17 11:46 100 40 05/27/17 11:46 50 05/27/17 10:00 77 05/27/17 08:53 100 50 05/27/17 08:00 99.0 78 14 163/78 (106) 100 05/27/17 08:00 78 05/27/17 08:00 40 05/27/17 07:00 99 Mechanical Ventilator 40 05/27/17 06:00 80 05/27/17 04:05 100 40 05/27/17 04:00 40 05/27/17 04:00 90 05/27/17 04:00 99.2 90 14 164/79 (107) 100 05/27/17 02:00 94 05/27/17 01:02 100 40 05/27/17 00:00 82 05/27/17 00:00 40 05/27/17 00:00 98.4 82 14 179/79 (112) 99 05/26/17 22:20 100 40 05/26/17 22:00 88 05/26/17 20:00 40 05/26/17 20:00 88 05/26/17 20:00 99.1 88 14 165/77 (106) 100 05/26/17 19:05 100 40 05/26/17 19:00 99 Mechanical Ventilator 40 05/26/17 18:00 83 05/26/17 16:00 97 40 05/26/17 16:00 40 05/26/17 16:00 99.0 80 14 144/67 (92) 98 05/26/17 16:00 80 05/26/17 14:00 79 I/O 05/26/17 05/26/17 05/26/17 05/27/17 05/27/17 05/27/17 07:00 15:00 23:00 07:00 15:00 23:00 Intake Total 1071 ml 1451 ml 1118 ml Output Total 950 ml 1700 ml 1000 ml Balance 121 ml -249 ml 118 ml IV Total 260 ml Tube Feeding 471 ml 531 ml 518 ml Tube Irrigant 60 ml Other 600 ml 600 ml 600 ml Output Urine Total 950 ml 1700 ml 1000 ml # Bowel Movements 5 4 3 (Jose R Bennett MD R2) Result Diagram: 05/26/17 1344 05/27/17 0350 Imaging Last Impressions Head CT 05/15/17 0000 Signed Impressions: Service Date/Time: May 19:59 - CONCLUSION: 1. 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 2. No bleed or new/acute infarct. Obdulio Simms MD Chest X-Ray 05/15/17 0000 Signed Impressions: Service Date/Time: May 12:38 - CONCLUSION: 1. A tracheostomy tube in good position with its tip 2 cm above the valerie. 2. Stable scattered pulmonary infiltrates bilaterally. 3. Dobbhoff feeding tube has its tip in the distal stomach. Enzo Farooq MD Abdomen X-Ray 05/10/17 0000 Signed Impressions: Service Date/Time: Wednesday, May 10, 2017 22:08 - CONCLUSION: Tip of Dobbhoff catheter is in the antrum of the stomach. Sage Adler MD Gall Bladder Ultrasound 05/08/17 0000 Signed Impressions: Service Date/Time: May 08:23 - CONCLUSION: Focally unremarkable appearance of the gallbladder Obdulio Chun MD Abdomen/Pelvis CT 05/07/17 0000 Signed Impressions: Service Date/Time: Sunday, May 07, 2017 13:23 - CONCLUSION: 1. Large left pneumothorax. 2. Bilateral lower lobe consolidation and bilateral moderate size pleural effusions. 3. Significant soft tissue thickening of the right lateral chest wall and left gluteus muscle. 4. Mild ascites. The findings were called to Dr. Carney. Deangelo Zamora MD Hip and Pelvis X-Ray 05/05/17 0000 Signed Impressions: Service Date/Time: Friday, May 05, 2017 10:59 - CONCLUSION: Left proximal femur trochanteric/subtrochanteric fracture lucency visualized. Postoperative changes. Choco Mustafa MD Chest CT 04/30/17 0000 Signed Impressions: Service Date/Time: Sunday, April 30, 2017 09:20 - CONCLUSION: 1. Bilateral pulmonary infiltrates more pronounced within the lower lobes with tiny bilateral pleural effusions. Material seen filling the lower lobe bronchi bilaterally either related to purulent material or perhaps mucus plugging. Deangelo Wren Jr., MD Carotid Artery Ultrasound 04/24/17 0000 Signed Impressions: Service Date/Time: April 09:45 - CONCLUSION: 1. No hemodynamically significant carotid artery stenosis. Arnie Middleton MD Hip X-Ray 04/21/17 0000 Signed Impressions: Service Date/Time: Friday, April 21, 2017 11:36 - CONCLUSION: Fluoroscopic images during placement of intramedullary siomara left femur. Benja Ramsey MD Objective Remarks CONSTITUTIONAL/GEN: Nonverbal, lying in bed with tracheostomy and PEG tubes in place. Patient's eyes are closed today, still unarousable with touch or speech HEAD: Normocephalic. Atraumatic. Right side facial droop LUNGS: On vent with CPAP trials. Coarse breath sounds bilaterally but moving air well CARDIOVASCULAR: Regular rate and rhythm. Lower extremity bilateral pitting edema improved. 2+ pitting edema of right foot only. GI/ABD: hyperactive BS w/o guarding or rebound. no grimacing with palpation. Glucerna 1.5 tube feed @ 45ml/hr. 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 Moves left UE and LE spontaneously and intermittently. MUSC: SCDs on bilateral lower extremities. Pedal pulses present. SKIN: Sacral pressure ulcer extends from anus to coccyx. Procedures ORIF 04/21/17 Intubation 04/30/17 (Jose R Bennett MD R2) A/P Assessment and Plan 76 y/o female with HTN, DM, CVA admitted for DKA and hip fracture. Sadly, patients with hip fractures have other problems and have a high chance of fatal conditions near the time of their fractures. Hip fractures are often a marker for other frailty. Now with massive left MCA stroke, right hemiplegia and midline shift resolving. Neurology and plastic cutter consulted. Poor prognosis per neurology. Working with palliative care and daughter for goals of care. Now treating for UTI and attempting to wean off vent. Discharge Planning Pending stroke progression and discussion for goals of care She has no Insurance. Medicaid was applied for and she cannot have this as she is not a [place] citizen and has not lived in the [place] long enough. She cannot go to a vent facility nor a SNF without insurance. Case management explained that to her daughter. Per her daughter, she continues to believe she will improve back to her norm at some point and wants to keep her with aggressive measures. She is looking for rehab as she believes her mother can improve. (Jose R Bennett MD R2) Attending Attestation Patient examined and case discussed with resident physician I have read the above note and agree with the assessment/plan as discussed with me I was involved in all medical decision making for this patient Fazal Zamora M.D. (Fazal Zamora MD) Problem List: (1) UTI (urinary tract infection) ICD Codes: N39.0 - Urinary tract infection, site not specified Status: Acute Plan: - Continue Leavitt cath - Urine culture grew Citrobacter freundii resistant to ceftriaxone - Rocephin 1g IV q24h (05/26 - 05/27) changed to cefepime (given low JEFFREY <2). Plan for cefepime 1 g every 12 hours for 7 to 10 days. (05/27 - present; today is day 1 of abx) History: -05/25 Nurse reported malodorous urine; patient had required straight cath's q6h for the previous 5 days. Leavitt ordered. -UA: + leuk est, + nitrate, + WBC (2) Urinary retention ICD Codes: R33.9 - Retention of urine, unspecified Plan: Patient was requiring intermittent catheterization until development of UTI. -Continue Leavitt catheter -Attempt to wean off Leavitt (3) Acute CVA (cerebrovascular accident) ICD Codes: I63.9 - Cerebral infarction, unspecified Status: Acute Plan: -Consulted plastic cutter, appreciate recs: s/p Tracheostomy 05/15 and PEG tube insertion 05/16 with poor prognosis -wean off vent as tolerated -Neurosurgery consulted -Recommended conservative management -Str[employer]ic Procurement Manager consulted and appreciated: -Tube feeds: Glucerna 1.5 tube feed @ 45ml/hr 24 hours a day for diet via PEG tube -maintenance fluid through PEG tube: free water 300cc q6h as she needs maintenance fluid of about 95 ml/hr -Physical therapy consulted and appreciated -Consulted palliative care-appreciate recs. appreciate help in talking to her daughter -Daughter continues to want aggressive care. Wishes to continue aggressive medical treatment despite prognosis -Neurology consulted-appreciate recs: Poor prognosis -Rectal ASA -Lovenox 40mg daily History and imaging: Patient found minimally responsive with neurological deficits around 0820 04/24. Stat CT of head was ordered, which showed large left MCA infarct. Diffuse edema throughout the left MCA distribution, suggested completed infarct. This was discussed and was not a candidate for intracranial intervention. CT (04/30): Reduction in midline shift to 11mm. Unchanged large left MCA infarction. CT head (05/06) shows: Evolving large left-sided MCA territory infarct with minimally improved [id number] subfalcine shift. No intercurrent hemorrhage or other acute abnormality. Echocardiogram- The left ventricular systolic function is low normal with an estimated ejection fraction in the range of 50-55%. Mild concentric left ventricular hypertrophy. Normal left ventricular size. [id number] mitral valve regurgitation. Carotid Artery US- No hemodynamically significant carotid stenosis (4) On mechanically assisted ventilation ICD Codes: Z99.11 - Dependence on respirator [ventilator] status Plan: Impression: s/p trach procedure 05/15. Continues to fail CPAP trials, but may be improving stamina gradually to tolerate it for longer periods -Continue weaning trials as tolerated (5) Sacral decubitus ulcer ICD Codes: L89.159 - Pressure ulcer of sacral region, unspecified stage Plan: Patient with small sacral decubitus ulcer over the coccyx. -Wound care consult appreciated: 1. Please cleanse buttock, coccyx, and sacral areas gently with soap and water and apply thick layer of Calazime barrier cream BID and PRN and leave wound open to air for now. 2. Order pressure relieving support surface mattress or bed such as halifax airapy or K-4 bed from [facility]. 3. Continue to turn patient every 2 hours or PRN for comfort. 4. Please do not put thick cloth underpads under patient for turning purposes. Please use flat turn sheet and ultra sorb pads for incontinence management. (6) Diarrhea ICD Codes: R19.7 - Diarrhea, unspecified Plan: Nurse reported diarrhea. -C diff stool PCR negative (7) Type 2 diabetes mellitus ICD Codes: E11.9 - Type 2 diabetes mellitus without complications Status: Chronic Plan: -Levemir to 5 units AM + 5 units PM -Low dose insulin sliding scale with goal blood glucose between 140 and 180 -Glucerna for PEG tube feedings @ 45 ml/hr History: Admitted for DKA which has now resolved. Hemoglobin A1C is 12.9. Diabetes Type I is uncontrolled. 05/22 - Started pt on Levemir 7 units AM + 7 units PM--received call at 8PM stating pt BG level at 60 and hypoglycemia protocol started (8) Hypertension ICD Codes: I10 - Essential (primary) hypertension Status: Acute Plan: BPs hypertensive overnight, required Vasotec -Antihypertensives to keep SBP<180 -Lasix or Bumex for diuresis as required (9) Atrial fibrillation ICD Codes: I48.91 - Unspecified atrial fibrillation Status: Resolved Plan: Hx of intermittent Afib. Resolved with administration of Lopressor. -Continue to monitor -Lopressor PRN (10) Hip fracture ICD Codes: S72.009A - Fracture of unspecified part of neck of unspecified femur , initial encounter for closed fracture Status: Resolved Plan: S/P left hip reduction and intramedullary nail fixation on 04-21-17 -Consulted orthopedics-appreciate recs * WBAT * Daily dressing changes -Calcium/Vitamin D -Fluids as above -Tylenol, morphine PRN pain, but it is difficult to tell if she is having pain (11) Fluids, Electrolytes, and Nutrition Status: Acute Plan: Fluids: through PEG tube Electrolyte: on electrolyte protocol Nutrition: Glucerna tube feeds and free water DVT ppx: SCDs/lovenox 40 mg daily CVA ppx: aspirin 325 mg GI ppx: Lansoprazole Colace, fleet enema mineral oil PRN (Jose R Bennett MD R2) Problem Qualifiers (1) UTI (urinary tract infection): Qualified Codes: N39.0 - Urinary tract infection, site not specified (2) Sacral decubitus ulcer: Qualified Codes: L89.151 - Pressure ulcer of sacral region, stage 1 (3) Type 2 diabetes mellitus: Qualified Codes: E11.9 - Type 2 diabetes mellitus without complications (4) Hypertension: Qualified Codes: I10 - Essential (primary) hypertension (5) Atrial fibrillation: Qualified Codes: I48.0 - Paroxysmal atrial fibrillation (6) Hip fracture: Jose R Bennett MD R2 May 27, 2017 12:17 Fazal Zamora MD May 27, 2017 16:41
[2017-05-27] MEDS: CEFEPIME INJ 1,000 MG in SODIUM CHLORIDE 0.9% INJ 100 ML IV SCH (17:45)
[2017-05-27 22:19] LABS: BICARBONATE 26.7 MEQ/L (21.0-32.0); CALCIUM 7.6 MG/DL (8.5-10.1); CREATININE 0.35 MG/DL (0.50-1.00)
[2017-05-28] VITALS (23 sets, daily range): BP systolic 102–160; BP diastolic 50–77; PULSE 68–88; RESP 19–27; TEMP 97.6–98.6; O2SAT 89–100
[2017-05-28] MEDS: CEFEPIME INJ 1,000 MG in SODIUM CHLORIDE 0.9% INJ 100 ML IV SCH ×2 (04:11→15:50)
[2017-05-28 04:38] LABS: AUTOMATED NEUTROPHIL # 8.1 TH/MM3 (1.8-7.7); BASOPHIL # 0.1 TH/MM3 (0-0.2); BASOPHIL % 0.6 % (0.0-2.0); EOSINOPHIL # 0.2 TH/MM3 (0-0.4); EOSINOPHIL % 1.7 % (0.0-4.0); HEMATOCRIT 24.4 % (35.0-46.0); HEMOGLOBIN 7.9 GM/DL (11.6-15.3); LYMPH % 29.7 % (9.0-44.0); LYMPHOCYTE # 3.9 TH/MM3 (1.0-4.8); MEAN CELL VOLUME 95.6 FL (80.0-100.0); MEAN CORPUSCULAR HEMOGLOBIN 31.1 PG (27.0-34.0); MEAN CORPUSCULAR HGB CONC 32.6 % (32.0-36.0); MEAN PLATELET VOLUME 8.2 FL (7.0-11.0); MONO % 6.8 % (0.0-8.0); MONOCYTE # 0.9 TH/MM3 (0-0.9); NEUT % 61.2 % (16.0-70.0); PLATELET COUNT 378 TH/MM3 (150-450); RED BLOOD COUNT 2.55 MIL/MM3 (4.00-5.30); RED CELL DISTRIBUTION WIDTH 17.2 % (11.6-17.2); WHITE BLOOD COUNT 13.3 TH/MM3 (4.0-11.0)
[2017-05-28 05:08] LABS: BICARBONATE 27.4 MEQ/L (21.0-32.0); CALCIUM 7.8 MG/DL (8.5-10.1); CREATININE 0.21 MG/DL (0.50-1.00)
[2017-05-28] MEDS: FREE WATER G-TUBE SCH ×3 (06:17→18:49)
[2017-05-28] MEDS: INSULIN ASPART SUPPLEMENTAL SCALE SQ SCH ×4 (08:00→21:28)
[2017-05-28 08:21] LABS: BANDS 8 % (0-6); BASOPHILS 1 % (0-2); LYMPHOCYTES 32 % (9-44); METAMYELOCYTES 3 % (0-1); MONOCYTES 6 % (0-8); MYELOCYTES 1 % (0-0); POLYS (SEG NEUTROPHILS) 48 % (16-70)
[2017-05-28] MEDS: DOCUSATE SODIUM 100 MG/10 ML UDC PO SCH ×2 (09:00→21:00)
--- NOTE | 2017-05-28 09:42 | HHI.CCPN ---
Subjective Remarks/Hospital Course 04/24: 76-year-old female with a medical history significant for prior stroke, diabetes mellitus who was admitted with DKA and a hip fracture for which she underwent ORIF on 04/21. Patient developed altered mental status and was last noted to be okay around 5:30 AM. Subsequently there was a change in her mental status and she was noted to not be moving her right side for which stroke alert was called. Head CT showed large left MCA territory ischemic infarct with edema. Patient was transferred to the ICU by family medicine service in the critical care consult was requested. I evaluated the patient following arrival to the ICU. At that time she was laying in bed with her eyes open however not following commands and had a dense right hemiplegia. Patient was also evaluated by Dr. Malave from neurology. I further discussed current event with patient's daughter following her arrival to the ICU. Per the daughter patient has been living with her since her stroke in 2014 and does ambulate however has been having problems with memory and incontinence as well as gait difficulties. She does not feel patient would want intubation or tracheostomy or PEG tube. 04/25: Patient remains encephalopathic, awake though not following commands consistently. Dense right hemiplegia persists. Appears to be awake enough to protect airway currently. Patient's daughter rescinded DNR and made a full code last evening. 04/26: Remains encephalopathic, not following commands. On Dobbhoff for tube feeds at 30 cc per hour. Had urinary retention and drained 2 L of urine after placing Moser catheter today. CT head done this morning with large left MCA territory infarct with left to right midline shift and significant cerebral edema. Hyperglycemia noted. Patient given mannitol earlier for increasing cerebral edema. 04/27: Remains encephalopathic, not following commands. On Dobbhoff tube feeds at 30 cc per hour. When into A. fib with RVR last night which responded with Lopressor 5 mg IV 1 dose. 04/28: Remains encephalopathic, arousable, not following commands. Moves left upper extremity spontaneously. Tolerating Dobbhoff tube feeds. Remains on nasal cannula. 04/29: Encephalopathic, eyes be arousable, moves left upper extremity spontaneously and occasionally opens eyes. Dense right hemiplegia and aphasia persists. On nasal cannula. Dobbhoff tube feeds being advanced. Patient was transfused 1 unit PRBCs yesterday. Urine culture with yeast from yesterday for which fluconazole being started. Had brief run of A. fib with RVR which improved with Lopressor IV, currently in sinus rhythm. 04/30: Worsening hypoxemic respiratory failure, currently on partial nonrebreather. Remains lethargic. WBC count increased from 14.6 today 20.7. Chest x-ray shows bilateral worsening infiltrates and small pleural effusions. Sodium 154, weight up by 8 KG. Albumin 1 mg Bumex 1. Also one dose of albumin. Remains in sinus tachycardia. Tmax 101.3 05/01: Patient was intubated yesterday for lack of airway protection, and severe hypoxemic respiratory failure from aspiration pneumonia involving multiple lobes. Patient is on the vent lethargic, no spontaneous eye opening. Chest x- ray remains unchanged. Remains intermittently febrile Tmax 101.3. WBC count improving 05/02: Remains critically ill with no improvement in mental status. Spiking fever of 101.7. Blood culture and sputum culture with staph aureus sputum also growing GNR, WBC count 22,000 now indicating worsening sepsis. Daughter still requesting aggressive care. Palliative care is following 05/03: S/P large area dominant hemisphere CVA. No neurological improvement. Now with pneumonia (infiltrate, fever, leukocytosis) and appropriate abx coverage. She will have a hard time surviving the hip fx, CVA, and pneumonia. Palliative Care needs to be a mainstay of our plan. 05/04: No improvement in neuro status. Sputum C&S allows us to narrow abx coverage to levaquin alone. Lungs remain quite congested. Enteral nutrition tolerated. 05/05: No improvement in neuro status. Moves left arm spontaneously. Flaccid right side. Unresponsive. Persistent mild hypoglycemia - will cut Levemir 50%. Abdomen more distended, check KUB. 05/06: CT head with massive left MCA infarction and > 1 cm shift in right handed woman. She opens eyes, does not track. 05/07: Patient open eyes. Attempts to respond. Greenlandic speaking. Tolerating tube feeds. Positive bowel movement. Volume overloaded. 05/08: Tmax 99.4. Potassium being replaced. Ultrasound gallbladder currently pending. Transaminases are trending downward. Gently diurese. 05/09: Alk phos decreasing. Remains with good urine output. Neurological status not improving. 05/10: Fixed neuro deficit unchanged. Profound CVA. 05/11: Appears to track with eyes today. No improvement in motor function. Remains very edematous, diuretics doubled. 05/12: Continued thick secretions. Afebrile, leukocytosis resolved. 05/13: CT head with completed left MCA stroke, persistent edema and 5 mm shift away. Does not last long on SBTs - major decision now is trach/PEG. 05/14: Daughter has decided to proceed with trach and PEG. I have been pessimistic with her about chances for a meaningful recovery. 05/15: Plan for trach today. No change in neuro status. Still ventilator dependent. 05/16: Trach completed. Await PEG and disposition. 05/17: PEG placed 05/16. Start TFs today after nutrition consult. Work to place patient. 05/18: No improvement. Does open eyes, no focus or tracking. Completed large dominant (left) hemisphere CVA in right handed woman with severe deficit. Medicaid pending status, [employer] is following. 05/19: no improvements in neuro exam. ready for LTAC. will d/c moser and rectal tubes. 05/20: no changes or improvements. very difficult placement due to patient not [place] citizen. 05/21: no improvements. resting on vent overnight due to distress. 05/22: no neurologic changes. no improvements. attempted T-piece which failed after 10 minutes. 05/23: no improvements. poor prognosis. poor neuro exam. still failing weaning trials. Subjective 05/24: no improvements or changes. still failing t-piece trials. 05/25: No acute changes of improvement overnight. Failed CPAP due to apnea, tried again currently tolerating. Neurological exam unchanged. 05/26: No improvement in neurological function. 05/27: Patient has required Moser catheter because of breakdown of skin on upper thighs and groin. Urine has become infected, will treat. 05/28: Some drainage from around trach (placed 2 weeks ago). Will change out trach tube and inspect neck wound. I&) straight cath q6h order entered 05/17. Objective Vital Signs Date Time Temp Pulse Resp B/P (MAP) Pulse Ox O2 Delivery O2 Flow Rate FiO2 05/28/17 08:45 98 T-piece 6.00 40 05/28/17 06:00 74 05/28/17 04:00 98.2 20 107/58 (74) Intake and Output 9/05/28/17 05/29/17 08:00 16:00 00:00 Intake Total 1145 ml Output Total 750 ml Balance 395 ml Result Diagram: 05/28/1740605/28/17406 Other Results Microbiology Date/Time Source Procedure Growth Status 05/25/17 15:00 Urine Catheterized Urine Urine Culture - Final Citrobacter Freundii Complete Imaging Last Impressions Chest X-Ray 05/07/17 0400 Signed Impressions: Service Date/Time: Sunday, May 07, 2017 04:38 - CONCLUSION: 1. Stable Low-lying ETT with tip approximately 1 cm above the valerie. 2. Mild interval progression of bilateral airspace consolidation exaggerated by patient rotation. 3. Increased small left pleural effusion. Alejo De La Vega MD Abdomen/Pelvis CT 05/07/17 0000 Signed Impressions: Service Date/Time: Sunday, May 07, 2017 13:23 - CONCLUSION: 1. Large left pneumothorax. 2. Bilateral lower lobe consolidation and bilateral moderate size pleural effusions. 3. Significant soft tissue thickening of the right lateral chest wall and left gluteus muscle. 4. Mild ascites. The findings were called to Dr. Carney. Deangelo Zamora MD Head CT 05/06/17 0000 Signed Impressions: Service Date/Time: Saturday, May 06, 2017 04:18 - CONCLUSION: 1. Evolving large left-sided MCA territory infarct with minimally improved [id number] subfalcine shift. 2. No intercurrent hemorrhage or other acute abnormality. Alejo De La Vega MD Abdomen X-Ray 05/06/17 0000 Signed Impressions: Service Date/Time: Saturday, May 06, 2017 17:42 - CONCLUSION: Dobbhoff feeding tube tip near the gastroduodenal junction. Obdulio Simms MD Hip and Pelvis X-Ray 05/05/17 0000 Signed Impressions: Service Date/Time: Friday, May 05, 2017 10:59 - CONCLUSION: Left proximal femur trochanteric/subtrochanteric fracture lucency visualized. Postoperative changes. Choco Mustafa MD Chest CT 04/30/17 0000 Signed Impressions: Service Date/Time: Sunday, April 30, 2017 09:20 - CONCLUSION: 1. Bilateral pulmonary infiltrates more pronounced within the lower lobes with tiny bilateral pleural effusions. Material seen filling the lower lobe bronchi bilaterally either related to purulent material or perhaps mucus plugging. Deangelo Wren Jr., MD Carotid Artery Ultrasound 04/24/17 0000 Signed Impressions: Service Date/Time: April 09:45 - CONCLUSION: 1. No hemodynamically significant carotid artery stenosis. Arnie Middleton MD Hip X-Ray 04/21/17 0000 Signed Impressions: Service Date/Time: Friday, April 21, 2017 11:36 - CONCLUSION: Fluoroscopic images during placement of intramedullary siomara left femur. Benja Ramsey MD Objective Remarks Gen: 76-year-old female, unresponsive. HEENT: mucous membranes moist. Neck: trached. site clean and dry. Chest/pulmonary: unlabored. on ventilator. Cardiovascular: RRR. No murmurs, no JVD. GI/abdomen: Distended. Nontender. BS active, no guarding. Extremities: Warm bilaterally, edema lowers. Incision sites over left hip, site clean dry and intact. Skin: Breakdown of skin on medial aspect of both thighs. Irritated by urine. Neuro: On no sedation. Has eye opening and grimaces spontaneously. Dense right hemiplegia noted. Withdraws left upper extremity, Withdraws LLE. No change. Pupils 2 mm, react. A/P Assessment and Plan Neuro/Psych: Left MCA CVA - 12 mm of eygv-[id number] subfalcine herniation - right-sided hemiplegia Acute encephalopathy History CVA Follow neuro status closely. Continue Aspirin 325 mg by mouth daily Patient was not a candidate for thrombolysis per discussion with neurology and radiology. Repeat head CT 05/05 showed slight improvement in the midline shift and mass effect Neurosurgery consulted 04/30- Dr. López, recommended conservative management Neurology following - Dr. Malave Cardiovascular: Hypertension IV fluids currently on hold due to edema As needed Antihypertensives to keep systolic blood pressure less than to 160 mmHg Echocardiogram 04/24 - EF 50 to 55%. Mild concentric LVH. Pulmonary: Acute hypoxic respiratory failure - aspiration possible HCAP Large left pneumothorax status post #10 Tamazight chest tube 05/07 Ventilator bundle. Ipratropium/albuterol aerosols every 6 hours with albuterol aerosols every 2 hours Chest tube d/c'd 05/12 Daily SBTs. failing for tachypnea. will continue trials daily. TP if CPAP tolerated GI/liver: Elevated transaminases Hypoalbuminemia Moderate to severe protein calorie malnutrition Dobbhoff for tube feedings and medications. Continue tube feeding with Glucerna 1.5 goal 45 cc an hour Lansoprazole 30 mg daily for GI regimen Docusate sodium 100 twice a day, Senokot 8.6 twice a day, polyethylene glycol 17 grams twice a day and lactulose 30 cc 4 times a day Evaluate CT abdomen/pelvis 05/07 - mild ascites. Large left hemothorax. Right greater than left pleural effusion. LFTs improving. Alk Phos elevated again 05/18. continue fiber in diet. Endocrine: Diabetes mellitus Detemir 8 units subcutaneous daily. SSI high dose q4h. Holding glimepiride 4 mg by mouth daily /Renal/FEN: Hypokalemia Strict intake output, monitor and replete electrolytes, follow BUN/creatinine. Moser catheter placed for urinary retention on 04/26. Moser removed 05/19 with q6h straight cath. Heme: Chronic Rivaroxaban use Leukocytosis Normocytic anemia Thrombocytosis Follow CBC and coags. On subcutaneous enoxaparin Hemoglobin currently stable. No indications for transfusion of blood proximally at this time ID: MSSA bacteremia Serratia/staph aureus pneumonia C glabrata UTI Pertinent cultures Urine culture 04/26/17 soife glabrata Blood culture 04/29/17 1 out of 4 bottles staph aureus Sputum culture 04/30/17 staph aureus and Serratia. Blood cultures 2, sputum 1 and urine 05/08 pending -> Serratia, treated. Urine 05/26: GNR Ceftriaxone started 05/26 MSK: Left Intertroch Hip Fx s/p IMN Vitamin D deficiency Prophylaxis: SCDs. Enoxaparin 40 mg sq daily-cleared by Dr. Ananda SANDS - lansoprazole Overall impression: Severe dominant hemisphere CVA. No improvement. Poor prognosis. Very difficult wean given age, comorbidities and deconditioning. PEG placed. No change in neuro status. Medicaid pending for placement. Charles Pedraza MD May 28, 2017 09:42
[2017-05-28] MEDS ORDERED: SODIUM CHLOR 0.9% 250 ML INJ 250 ML IV ONE (09:45)
--- NOTE | 2017-05-28 09:47 | HHI.FPPN ---
Subjective Remarks Pt seen and examined bedside. Patient does not appear to be in any acute distress. Patient is sleeping and non-arousable. Patient is moving the fingers of her left hand continuously. Objective Vitals Vital Signs Date Time Temp Pulse Resp B/P (MAP) Pulse Ox O2 Delivery O2 Flow Rate FiO2 05/28/17 08:45 98 T-piece 6.00 40 05/28/17 08:37 100 40 05/28/17 07:00 100 Mechanical Ventilator 40 Trach Collar 05/28/17 06:00 74 05/28/17 04:02 100 40 05/28/17 04:00 40 05/28/17 04:00 68 05/28/17 04:00 98.2 68 20 107/58 (74) 100 05/28/17 02:00 76 05/28/17 00:00 74 05/28/17 00:00 40 05/28/17 00:00 98.6 74 21 107/58 (74) 99 05/27/17 23:45 100 40 05/27/17 22:00 74 05/27/17 20:27 98 40 05/27/17 20:00 99.3 74 17 138/65 (89) 100 05/27/17 20:00 40 05/27/17 20:00 74 05/27/17 19:00 100 Mechanical Ventilator 40 Trach Collar 05/27/17 18:00 79 05/27/17 18:00 40 05/27/17 16:45 100 40 05/27/17 16:00 98.6 77 18 167/60 (95) 100 05/27/17 16:00 40 05/27/17 16:00 77 05/27/17 14:00 79 05/27/17 12:00 99.2 81 14 164/85 (111) 100 05/27/17 12:00 40 05/27/17 12:00 81 05/27/17 11:46 100 40 05/27/17 11:46 50 05/27/17 10:00 77 05/27/17 10:00 40 I/O 05/27/17 05/27/17 05/27/17 05/28/17 05/28/17 05/28/17 07:00 15:00 23:00 07:00 15:00 23:00 Intake Total 1118 ml 1225 ml 1145 ml Output Total 1000 ml 1850 ml 750 ml Balance 118 ml -625 ml 395 ml IV Total 200 ml 179 ml Tube Feeding 518 ml 425 ml 306 ml Tube Irrigant 60 ml Other 600 ml 600 ml 600 ml Output Urine Total 1000 ml 1850 ml 750 ml # Bowel Movements 3 2 1 Result Diagram: 05/28/1740605/28/17406 Objective Remarks CONSTITUTIONAL/GEN: Nonverbal, lying in bed with tracheostomy and PEG tubes in place. Patient's eyes still are closed today, still unarousable with touch or speech HEAD: Normocephalic. Atraumatic. Right side facial droop LUNGS: On vent with CPAP trials. Coarse breath sounds bilaterally but moving air well CARDIOVASCULAR: Regular rate and rhythm. Positive pitting edema 2+ of right upper extremity, feet bilaterally, hands bilaterally. GI/ABD: hyperactive BS w/o guarding or rebound. no grimacing with palpation. Glucerna 1.5 tube feed @ 45ml/hr. 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 Moves left UE and LE spontaneously and intermittently. MUSC: SCDs on bilateral lower extremities. Pedal pulses present. SKIN: Sacral pressure ulcer extends from anus to coccyx. Urine: Urine appears dark, non-cloudy Procedures ORIF 04/21/17 Intubation 04/30/17 A/P Assessment and Plan 76 y/o female with HTN, DM, CVA admitted for DKA and hip fracture. Sadly, patients with hip fractures have other problems and have a high chance of fatal conditions near the time of their fractures. Hip fractures are often a marker for other frailty. Now with massive left MCA stroke, right hemiplegia and midline shift resolving. Neurology and projector operator consulted. Poor prognosis per neurology. Working with palliative care and daughter for goals of care. Now treating for UTI and attempting to wean off vent. Discharge Planning Pending stroke progression and discussion for goals of care She has no Insurance. Medicaid was applied for and she cannot have this as she is not a [place] citizen and has not lived in the [place] long enough. She cannot go to a vent facility nor a SNF without insurance. Case management explained that to her daughter. Per her daughter, she continues to believe she will improve back to her norm at some point and wants to keep her with aggressive measures. She is looking for rehab as she believes her mother can improve. Problem List: (1) UTI (urinary tract infection) ICD Codes: N39.0 - Urinary tract infection, site not specified Status: Acute Plan: cefepime 1 g every 12 hours (05/27 start, Day #2/10) History: -05/25 Nurse reported malodorous urine; patient had required straight cath's q6h for the previous 5 days. Leavitt ordered. -UA: + leuk est, + nitrate, + WBC - Continue Leavitt cath - Urine culture grew Citrobacter freundii resistant to ceftriaxone - Rocephin 1g IV q24h (05/26 - 05/27) changed to cefepime (given low JEFFREY <2). Plan for cefepime 1 g every 12 hours for 7 to 10 days. (05/27 - present) (2) Urinary retention ICD Codes: R33.9 - Retention of urine, unspecified Plan: Patient was requiring intermittent catheterization until development of UTI. -Continue Leavitt catheter -Attempt to wean off Leavitt (3) Acute CVA (cerebrovascular accident) ICD Codes: I63.9 - Cerebral infarction, unspecified Status: Acute Plan: -Consulted projector operator, appreciate recs: s/p Tracheostomy 05/15 and PEG tube insertion 05/16 with poor prognosis -wean off vent as tolerated -Neurosurgery consulted -Recommended conservative management -Donkey Engine Firer/Fireman consulted and appreciated: -Tube feeds: Glucerna 1.5 tube feed @ 45ml/hr 24 hours a day for diet via PEG tube -maintenance fluid through PEG tube: free water 300cc q6h as she needs maintenance fluid of about 95 ml/hr -Physical therapy consulted and appreciated -Consulted palliative care-appreciate recs. appreciate help in talking to her daughter -Daughter continues to want aggressive care. Wishes to continue aggressive medical treatment despite prognosis -Neurology consulted-appreciate recs: Poor prognosis -Rectal ASA -Lovenox 40mg daily History and imaging: Patient found minimally responsive with neurological deficits around 0820 04/24. Stat CT of head was ordered, which showed large left MCA infarct. Diffuse edema throughout the left MCA distribution, suggested completed infarct. This was discussed and was not a candidate for intracranial intervention. CT (04/30): Reduction in midline shift to 11mm. Unchanged large left MCA infarction. CT head (05/06) shows: Evolving large left-sided MCA territory infarct with minimally improved [id number] subfalcine shift. No intercurrent hemorrhage or other acute abnormality. Echocardiogram- The left ventricular systolic function is low normal with an estimated ejection fraction in the range of 50-55%. Mild concentric left ventricular hypertrophy. Normal left ventricular size. Wwwuj-bb-[id number] mitral valve regurgitation. Carotid Artery US- No hemodynamically significant carotid stenosis (4) On mechanically assisted ventilation ICD Codes: Z99.11 - Dependence on respirator [ventilator] status Plan: Impression: s/p trach procedure 05/15. Continues to fail CPAP trials, but may be improving stamina gradually to tolerate it for longer periods -Continue weaning trials as tolerated (5) Sacral decubitus ulcer ICD Codes: L89.159 - Pressure ulcer of sacral region, unspecified stage Plan: Patient with small sacral decubitus ulcer over the coccyx. -Wound care consult appreciated: 1. Please cleanse buttock, coccyx, and sacral areas gently with soap and water and apply thick layer of Calazime barrier cream BID and PRN and leave wound open to air for now. 2. Order pressure relieving support surface mattress or bed such as halifax airapy or K-4 bed from [employer]. 3. Continue to turn patient every 2 hours or PRN for comfort. 4. Please do not put thick cloth underpads under patient for turning purposes. Please use flat turn sheet and ultra sorb pads for incontinence management. (6) Diarrhea ICD Codes: R19.7 - Diarrhea, unspecified Status: Chronic Plan: Nurse reported diarrhea. -C diff stool PCR negative (7) Type 2 diabetes mellitus ICD Codes: E11.9 - Type 2 diabetes mellitus without complications Status: Chronic Plan: - Switch to Levemir 7AM + 7 PM for hyperglycemia (260-313) - Continue low dose ISS, goal 140-180 -Glucerna for PEG tube feedings @ 45 ml/hr History: Admitted for DKA which has now resolved. Hemoglobin A1C is 12.9. Diabetes Type I is uncontrolled. 05/22 - 8PM stating pt BG level at 60 and hypoglycemia protocol started Levemir 5AM + 5PM until raised on 05/28 (8) Hypertension ICD Codes: I10 - Essential (primary) hypertension Status: Acute Plan: BPs WNL overnight -Antihypertensives to keep SBP<180 -Lasix or Bumex for diuresis as required (9) Atrial fibrillation ICD Codes: I48.91 - Unspecified atrial fibrillation Status: Resolved Plan: Hx of intermittent Afib. Resolved with administration of Lopressor. -Continue to monitor -Lopressor PRN (10) Hip fracture ICD Codes: S72.009A - Fracture of unspecified part of neck of unspecified femur , initial encounter for closed fracture Status: Resolved Plan: S/P left hip reduction and intramedullary nail fixation on 04-21-17 -Consulted orthopedics-appreciate recs * WBAT * Daily dressing changes -Calcium/Vitamin D -Fluids as above -Tylenol, morphine PRN pain, but it is difficult to tell if she is having pain (11) Low hemoglobin ICD Codes: D64.9 - Anemia, unspecified Status: Acute Plan: Hb: 7.9 today (from 8.9) - f/u Hemmocult - Transfuse 1 unit PRBCs now (12) Fluids, Electrolytes, and Nutrition Status: Acute Plan: Fluids: through PEG tube Electrolyte: on electrolyte protocol Nutrition: Glucerna tube feeds and free water DVT ppx: SCDs/lovenox 40 mg daily CVA ppx: aspirin 325 mg GI ppx: Lansoprazole Colace, fleet enema mineral oil PRN Problem Qualifiers (1) UTI (urinary tract infection): Qualified Codes: N39.0 - Urinary tract infection, site not specified (2) Sacral decubitus ulcer: Qualified Codes: L89.151 - Pressure ulcer of sacral region, stage 1 (3) Type 2 diabetes mellitus: Qualified Codes: E11.9 - Type 2 diabetes mellitus without complications (4) Hypertension: Qualified Codes: I10 - Essential (primary) hypertension (5) Atrial fibrillation: Qualified Codes: I48.0 - Paroxysmal atrial fibrillation (6) Hip fracture: Tova Ortiz MD R2 May 28, 2017 09:47
[2017-05-28] MEDS ORDERED: diphenhydrAMINE HCL 25 MG CAP PO PRN (10:00)
[2017-05-28] MEDS ORDERED: FUROSEMIDE 20 MG/2 ML VIAL IV PUSH ONE (10:00)
[2017-05-28] MEDS ORDERED: ACETAMINOPHEN 325 MG TAB PO PRN (10:00)
[2017-05-28] MEDS: ASPIRIN 325 MG TAB DOBHOFF SCH (10:01)
[2017-05-28] MEDS: CHOLECALCIFEROL (VIT D3) 5000 UNIT CAP PO SCH (10:01)
[2017-05-28] MEDS: CALCIUM/VITAMIN D 250 MG/125 U TAB PO SCH ×3 (10:01→18:49)
[2017-05-28] MEDS: FUROSEMIDE 40 MG/5 ML UNIT DOSE CUP NG SCH (10:01)
[2017-05-28] MEDS: LANSOPRAZOLE SOLUTAB 30 MG TAB NG SCH (10:01)
[2017-05-28] MEDS: SODIUM CHLORIDE 0.9% FLUSH 5 ML FLUSH IV FLUSH SCH ×2 (10:01→21:27)
[2017-05-28] MEDS: BENEPROTEIN POWDER 1 PACK G-TUBE SCH ×3 (10:02→18:49)
--- NOTE | 2017-05-28 18:31 | HHI.PR ---
Subjective Subjective Comments Trach with T-piece. Resting comfortably and does not appear to be any pain. Allergies: Coded Allergies: No Known Allergies (Unverified , 04/20/17) Review of Systems All other ROS: Unable to obtain Exam I&O / VS Vital Signs Date Time Temp Pulse Resp B/P (MAP) Pulse Ox O2 Delivery O2 Flow Rate FiO2 05/28/17 16:00 75 05/28/17 16:00 97.8 75 20 149/70 (96) 100 05/28/17 15:42 97.6 82 21 160/77 99 05/28/17 15:19 97.6 79 21 102/50 98 05/28/17 14:00 77 05/28/17 12:32 97.8 78 19 132/65 (87) 94 05/28/17 12:31 78 05/28/17 10:00 81 05/28/17 08:45 98 T-piece 6.00 40 05/28/17 08:37 100 40 05/28/17 08:00 98.2 75 19 132/69 (90) 100 05/28/17 08:00 75 05/28/17 08:00 40 05/28/17 07:00 100 Mechanical Ventilator 40 Trach Collar 05/28/17 06:00 74 05/28/17 04:02 100 40 05/28/17 04:00 40 05/28/17 04:00 68 05/28/17 04:00 98.2 68 20 107/58 (74) 100 05/28/17 02:00 76 05/28/17 00:00 74 05/28/17 00:00 40 05/28/17 00:00 98.6 74 21 107/58 (74) 99 05/27/17 23:45 100 40 05/27/17 22:00 74 05/27/17 20:27 98 40 05/27/17 20:00 99.3 74 17 138/65 (89) 100 05/27/17 20:00 40 05/27/17 20:00 74 05/27/17 19:00 100 Mechanical Ventilator 40 Trach Collar General: No acute distress, Other (trach on T-piece trial) Cardiovascular: Normal rate (Tachycardic) Musculoskeletal: ROM (grossly within functional limits) Psychiatric: Other (No restlessness or agitation noted) Neurologic: Pupils (reactive bilaterally), Speech (nonverbal), Other Motor: Right Upper Extremity (flaccid), Left Upper Extremity (spontaneous nonpurposeful movement), Right Lower Extremity (flaccid), Left Lower Extremity ( withdraws) Clonus: Negative Objective Micro and Labs Laboratory Tests Test 05/27/17 21:25 05/28/17 04:07 Blood Urea Nitrogen 29 29 Creatinine 0.35 0.21 Random Glucose 316 74 Calcium Level 7.6 7.8 Sodium Level 139 140 Potassium Level 3.8 3.7 Chloride Level 105 106 Carbon Dioxide Level 26.7 27.4 Anion Gap 7 7 Estimat Glomerular Filtration Rate 182 328 White Blood Count 13.3 Red Blood Count 2.55 Hemoglobin 7.9 Hematocrit 24.4 Mean Corpuscular Volume 95.6 Mean Corpuscular Hemoglobin 31.1 Mean Corpuscular Hemoglobin Concent 32.6 Red Cell Distribution Width 17.2 Platelet Count 378 Mean Platelet Volume 8.2 Neutrophils (%) (Auto) 61.2 Lymphocytes (%) (Auto) 29.7 Monocytes (%) (Auto) 6.8 Eosinophils (%) (Auto) 1.7 Basophils (%) (Auto) 0.6 Neutrophils # (Auto) 8.1 Lymphocytes # (Auto) 3.9 Monocytes # (Auto) 0.9 Eosinophils # (Auto) 0.2 Basophils # (Auto) 0.1 CBC Comment AUTO DIFF Differential Total Cells Counted 100 Neutrophils % (Manual) 48 Band Neutrophils % 8 Lymphocytes % 32 Monocytes % 6 Eosinophils % 1 Basophils % 1 Neutrophils # (Manual) 8.0 Metamyelocytes 3 Myelocytes 1 Differential Comment FINAL DIFF MANUAL Platelet Estimate NORMAL Platelet Morphology Comment NORMAL Date/Time Source Procedure Growth Status 05/08/17 04:44 Blood Peripheral Aerobic Blood Culture - Final NO GROWTH IN 5 DAYS Complete 05/08/17 04:44 Blood Peripheral Anaerobic Blood Culture - Final NO GROWTH IN 5 DAYS Complete 05/07/17 21:30 Sputum Endotracheal Gram Stain - Final Complete 05/07/17 21:30 Sputum Culture - Final Serratia Marcescens Complete 05/25/17 15:00 Urine Catheterized Urine Urine Culture - Final Citrobacter Freundii Complete Assessment and Plan Diagnosis: (1) Acute ischemic left middle cerebral artery (MCA) stroke ICD Codes: I63.512 - Cerebral infarction due to unspecified occlusion or stenosis of left middle cerebral artery Status: Acute (2) Right hemiplegia ICD Codes: G81.91 - Hemiplegia, unspecified affecting right dominant side Status: Acute (3) Aphasia ICD Codes: R47.01 - Aphasia Status: Acute (4) Hip fracture ICD Codes: S72.009A - Fracture of unspecified part of neck of unspecified femur , initial encounter for closed fracture Status: Resolved Qualifiers: Encounter type: subsequent encounter Fracture type: closed Laterality: left Assessment 1. Left middle cerebral artery stroke with right hemiplegia, aphasia and dysphagia. Hospital day #38. 2. Status post trach:currently with T-piece trials for weaning 3. Status post PEG 4. Left intertrochanteric hip fracture status post IM nail 04/21/17 5. Diabetes mellitus with DKA on admission 6. Hypertension 7. Previous stroke Plan 1. Physical therapy providing range of motion. No functional progress noted to date. 2. SCDs in place for DVT prophylaxis 3. Reposition q 2 hours and monitor skin integrity. Wound care is following sacral and coccygeal area 4. Palliative care following and case management is working with family on long -term care. 5. Will continue to follow while hospitalized and at discharge as appropriate Li Perrin MD May 28, 2017 18:31
[2017-05-28] MEDS: RESP: ALBUTEROL 2.5 MG/3 ML NEB (PRN) NEB (20:43)
[2017-05-28] MEDS: INSULIN DETEMIR 100 UNITS/ML VIAL SQ SCH (21:28)
[2017-05-29] VITALS (19 sets, daily range): BP systolic 109–153; BP diastolic 53–70; PULSE 68–86; RESP 14–24; TEMP 97.3–99.3; O2SAT 94–100
[2017-05-29] MEDS: FREE WATER G-TUBE SCH ×5 (00:45→21:06)
[2017-05-29 05:29] LABS: HEMATOCRIT 30.7 % (35.0-46.0); HEMOGLOBIN 10.1 GM/DL (11.6-15.3); MEAN CELL VOLUME 91.4 FL (80.0-100.0); MEAN CORPUSCULAR HGB CONC 32.8 % (32.0-36.0); MEAN PLATELET VOLUME 8.7 FL (7.0-11.0); PLATELET COUNT 409 TH/MM3 (150-450); RED BLOOD COUNT 3.36 MIL/MM3 (4.00-5.30); RED CELL DISTRIBUTION WIDTH 18.8 % (11.6-17.2); WHITE BLOOD COUNT 13.3 TH/MM3 (4.0-11.0)
[2017-05-29] MEDS: CEFEPIME INJ 1,000 MG in SODIUM CHLORIDE 0.9% INJ 100 ML IV SCH ×2 (05:42→17:18)
[2017-05-29 05:48] LABS: CALCIUM 7.9 MG/DL (8.5-10.1); CREATININE 0.32 MG/DL (0.50-1.00)
[2017-05-29] MEDS: INSULIN ASPART SUPPLEMENTAL SCALE SQ SCH ×4 (08:00→21:24)
[2017-05-29] MEDS: CALCIUM/VITAMIN D 250 MG/125 U TAB PO SCH ×3 (08:33→17:32)
[2017-05-29] MEDS: SODIUM CHLORIDE 0.9% FLUSH 5 ML FLUSH IV FLUSH SCH ×2 (08:34→21:05)
[2017-05-29] MEDS: BENEPROTEIN POWDER 1 PACK G-TUBE SCH ×3 (08:34→17:18)
[2017-05-29] MEDS: FUROSEMIDE 40 MG/5 ML UNIT DOSE CUP NG SCH (08:34)
[2017-05-29] MEDS: INSULIN DETEMIR 100 UNITS/ML VIAL SQ SCH ×2 (08:34→21:23)
[2017-05-29] MEDS: CHOLECALCIFEROL (VIT D3) 5000 UNIT CAP PO SCH (08:34)
[2017-05-29] MEDS: DOCUSATE SODIUM 100 MG/10 ML UDC PO SCH ×2 (08:34→21:00)
[2017-05-29] MEDS: ASPIRIN 325 MG TAB DOBHOFF SCH (08:34)
[2017-05-29] MEDS: LANSOPRAZOLE SOLUTAB 30 MG TAB NG SCH (08:34)
--- NOTE | 2017-05-29 09:18 | HHI.FPPN ---
Subjective Remarks Patient seen and examined bedside. Patient seems to be at baseline; is sleeping and not arousable to touch or by name. Patient is not moving on the exam. Nurses are currently attempting to change patient from T tube back to ventilation because of oxygen desaturation. Per nursing; patient has had normal bowel movements with no obvious blood. No nausea vomiting. No fever/chills. No change in orientation. (Tova Ortiz MD R2) Objective Vitals Vital Signs Date Time Temp Pulse Resp B/P (MAP) Pulse Ox O2 Delivery O2 Flow Rate FiO2 05/29/17 07:38 100 T-piece 6.00 40 05/29/17 06:00 72 05/29/17 04:02 100 40 05/29/17 04:00 40 05/29/17 04:00 74 05/29/17 04:00 99.3 74 15 136/65 (88) 99 05/29/17 02:00 80 05/29/17 01:01 100 40 05/29/17 00:00 98.7 80 19 140/67 (91) 99 05/29/17 00:00 78 05/29/17 00:00 40 05/28/17 22:35 97 40 05/28/17 22:00 88 05/28/17 20:50 91 40 05/28/17 20:30 89 T-piece 10.00 98 05/28/17 20:00 84 05/28/17 20:00 98.3 84 27 146/67 (93) 94 05/28/17 19:44 94 T-piece 6.00 40 05/28/17 19:00 94 Trach Collar 40 T-Piece 05/28/17 19:00 98.3 84 23 115/56 93 05/28/17 18:00 69 05/28/17 16:00 75 05/28/17 16:00 97.8 75 20 149/70 (96) 100 05/28/17 15:42 97.6 82 21 160/77 99 05/28/17 15:19 97.6 79 21 102/50 98 05/28/17 14:00 77 05/28/17 12:32 97.8 78 19 132/65 (87) 94 05/28/17 12:31 78 05/28/17 10:00 81 I/O 9/27/05/28/17 05/28/17 05/29/17 05/29/17 05/29/17 07:00 15:00 23:00 07:00 15:00 23:00 Intake Total 1145 ml 1723 ml 1261 ml Output Total 750 ml 1550 ml 600 ml Balance 395 ml 173 ml 661 ml IV Total 179 ml 100 ml 100 ml Tube Feeding 306 ml 563 ml 501 ml Packed Cells 400 ml Tube Irrigant 60 ml 60 ml 60 ml Other 600 ml 600 ml 600 ml Output Urine Total 750 ml 1550 ml 600 ml # Bowel Movements 1 1 2 (Tova Ortiz MD R2) Result Diagram: 05/29/1740405/29/17404 Objective Remarks CONSTITUTIONAL/GEN: Nonverbal, lying in bed with tracheostomy and PEG tubes in place. Patient's eyes still are closed today, still unarousable with touch or speech HEAD: Normocephalic. Atraumatic. Right side facial droop LUNGS: On vent with CPAP trials. Coarse breath sounds bilaterally but moving air well CARDIOVASCULAR: Regular rate and rhythm. Positive pitting edema 2+ of right upper extremity, 1+ of the left upper extremity, feet bilaterally, hands bilaterally. GI/ABD: hyperactive BS w/o guarding or rebound. no grimacing with palpation. Glucerna 1.5 tube feed @ 45ml/hr. 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 Moves left UE and LE spontaneously and intermittently. MUSC: SCDs on bilateral lower extremities. Pedal pulses present. SKIN: Sacral pressure ulcer extends from anus to coccyx. Urine: Urine appears dark, non-cloudy Procedures ORIF 04/21/17 Intubation 04/30/17 (Tova Ortiz MD R2) A/P Assessment and Plan 76 y/o female with HTN, DM, CVA admitted for DKA and hip fracture. Sadly, patients with hip fractures have other problems and have a high chance of fatal conditions near the time of their fractures. Hip fractures are often a marker for other frailty. Now with massive left MCA stroke, right hemiplegia and midline shift resolving. Neurology and tree tapping laborer consulted. Poor prognosis per neurology. Working with palliative care and daughter for goals of care. Now treating for UTI and attempting to wean off vent. Discharge Planning Pending stroke progression and discussion for goals of care She has no Insurance. Medicaid was applied for and she cannot have this as she is not a [place] citizen and has not lived in the [place] long enough. She cannot go to a vent facility nor a SNF without insurance. Case management explained that to her daughter. Per her daughter, she continues to believe she will improve back to her norm at some point and wants to keep her with aggressive measures. She is looking for rehab as she believes her mother can improve. (Tova Ortiz MD R2) Attending Attestation Pt. examined and case discussed with resident physicians I have read the above note and agree with the assessment/plan as discussed with me I was involved in all medical decision making for this patient Fazal Zamora MD (Fazal Zamora MD) Problem List: (1) UTI (urinary tract infection) ICD Codes: N39.0 - Urinary tract infection, site not specified Status: Acute Plan: cefepime 1 g every 12 hours (05/27 start, Day #3) History: -05/25 Nurse reported malodorous urine; patient had required straight cath's q6h for the previous 5 days. Leavitt ordered. -UA: + leuk est, + nitrate, + WBC - Continue Leavitt cath - Urine culture grew Citrobacter freundii resistant to ceftriaxone - Rocephin 1g IV q24h (05/26 - 05/27) changed to cefepime (given low JEFFREY <2). Plan for cefepime 1 g every 12 hours for 7 to 10 days. (05/27 - present) (2) Urinary retention ICD Codes: R33.9 - Retention of urine, unspecified Plan: Patient was requiring intermittent catheterization until development of UTI. -Continue Leavitt catheter -Attempt to wean off Leavitt (3) Acute CVA (cerebrovascular accident) ICD Codes: I63.9 - Cerebral infarction, unspecified Status: Acute Plan: -Consulted tree tapping laborer, appreciate recs: s/p Tracheostomy 05/15 and PEG tube insertion 05/16 with poor prognosis -wean off vent as tolerated -Neurosurgery consulted -Recommended conservative management -Dietetic Technician consulted and appreciated: -Tube feeds: Glucerna 1.5 tube feed @ 45ml/hr 24 hours a day for diet via PEG tube -maintenance fluid through PEG tube: free water 300cc q6h as she needs maintenance fluid of about 95 ml/hr -Physical therapy consulted and appreciated -Consulted palliative care-appreciate recs. appreciate help in talking to her daughter -Daughter continues to want aggressive care. Wishes to continue aggressive medical treatment despite prognosis -Neurology consulted-appreciate recs: Poor prognosis -Rectal ASA -Lovenox 40mg daily History and imaging: Patient found minimally responsive with neurological deficits around 0820 04/24. Stat CT of head was ordered, which showed large left MCA infarct. Diffuse edema throughout the left MCA distribution, suggested completed infarct. This was discussed and was not a candidate for intracranial intervention. CT (04/30): Reduction in midline shift to 11mm. Unchanged large left MCA infarction. CT head (05/06) shows: Evolving large left-sided MCA territory infarct with minimally improved [id number] subfalcine shift. No intercurrent hemorrhage or other acute abnormality. Echocardiogram- The left ventricular systolic function is low normal with an estimated ejection fraction in the range of 50-55%. Mild concentric left ventricular hypertrophy. Normal left ventricular size. Eonkr-[id number] mitral valve regurgitation. Carotid Artery US- No hemodynamically significant carotid stenosis (4) On mechanically assisted ventilation ICD Codes: Z99.11 - Dependence on respirator [ventilator] status Plan: Impression: s/p trach procedure 05/15. Tolerated T-tube for 13 hours yesterday, and CPAP overnight. However this morning he had difficulty tolerating T-tube being and patient is placed back on vent -Continue weaning trials as tolerated (5) Sacral decubitus ulcer ICD Codes: L89.159 - Pressure ulcer of sacral region, unspecified stage Plan: Patient with small sacral decubitus ulcer over the coccyx. -Wound care consult appreciated: 1. Please cleanse buttock, coccyx, and sacral areas gently with soap and water and apply thick layer of Calazime barrier cream BID and PRN and leave wound open to air for now. 2. Order pressure relieving support surface mattress or bed such as halifax airapy or K-4 bed from [facility]. 3. Continue to turn patient every 2 hours or PRN for comfort. 4. Please do not put thick cloth underpads under patient for turning purposes. Please use flat turn sheet and ultra sorb pads for incontinence management. (6) Diarrhea ICD Codes: R19.7 - Diarrhea, unspecified Status: Chronic Plan: Nurse reported diarrhea. -C diff stool PCR negative (7) Type 2 diabetes mellitus ICD Codes: E11.9 - Type 2 diabetes mellitus without complications Status: Chronic Plan: - Switched to Levemir 7AM + 7 PM for hyperglycemia, fingersticks have improved (110-258) - Continue low dose ISS, goal 140-180 -Glucerna for PEG tube feedings @ 45 ml/hr History: Admitted for DKA which has now resolved. Hemoglobin A1C is 12.9. Diabetes Type I is uncontrolled. 05/22 - 8PM stating pt BG level at 60 and hypoglycemia protocol started Levemir 5AM + 5PM until raised on 05/28 (8) Hypertension ICD Codes: I10 - Essential (primary) hypertension Status: Acute Plan: BPs WNL overnight -Antihypertensives to keep SBP<180 -Lasix or Bumex for diuresis as required (9) Atrial fibrillation ICD Codes: I48.91 - Unspecified atrial fibrillation Status: Resolved Plan: Hx of intermittent Afib. Resolved with administration of Lopressor. -Continue to monitor -Lopressor PRN (10) Hip fracture ICD Codes: S72.009A - Fracture of unspecified part of neck of unspecified femur , initial encounter for closed fracture Status: Resolved Plan: S/P left hip reduction and intramedullary nail fixation on 04-21-17 -Consulted orthopedics-appreciate recs * WBAT * Daily dressing changes -Calcium/Vitamin D -Fluids as above -Tylenol, morphine PRN pain, but it is difficult to tell if she is having pain (11) Low hemoglobin ICD Codes: D64.9 - Anemia, unspecified Status: Resolved Plan: Hb: 10.1 (from 7.9) status post 1 unit PRBCs - f/u Hemmocult (12) Fluids, Electrolytes, and Nutrition Status: Acute Plan: Fluids: through PEG tube Electrolyte: on electrolyte protocol Nutrition: Glucerna tube feeds and free water DVT ppx: SCDs/lovenox 40 mg daily CVA ppx: aspirin 325 mg GI ppx: Lansoprazole Colace, fleet enema mineral oil PRN (Tova Ortiz MD R2) Problem Qualifiers (1) UTI (urinary tract infection): Qualified Codes: N39.0 - Urinary tract infection, site not specified (2) Sacral decubitus ulcer: Qualified Codes: L89.151 - Pressure ulcer of sacral region, stage 1 (3) Type 2 diabetes mellitus: Qualified Codes: E11.9 - Type 2 diabetes mellitus without complications (4) Hypertension: Qualified Codes: I10 - Essential (primary) hypertension (5) Atrial fibrillation: Qualified Codes: I48.0 - Paroxysmal atrial fibrillation (6) Hip fracture: Tova Ortiz MD R2 May 29, 2017 09:18 Fazal Zamora MD May 29, 2017 16:36
[2017-05-29] MEDS ORDERED: ARTIFICIAL TEARS OPTH SOLN 15 ML BTL EACH EYE PRN (21:15)
[2017-05-30] VITALS (19 sets, daily range): BP systolic 117–141; BP diastolic 56–71; PULSE 60–72; RESP 14; TEMP 97.7–99.7; O2SAT 99–100
[2017-05-30 03:51] LABS: HEMATOCRIT 29.5 % (35.0-46.0); HEMOGLOBIN 9.9 GM/DL (11.6-15.3); MEAN CELL VOLUME 91.9 FL (80.0-100.0); MEAN CORPUSCULAR HEMOGLOBIN 30.9 PG (27.0-34.0); MEAN CORPUSCULAR HGB CONC 33.6 % (32.0-36.0); MEAN PLATELET VOLUME 8.4 FL (7.0-11.0); PLATELET COUNT 366 TH/MM3 (150-450); RED BLOOD COUNT 3.22 MIL/MM3 (4.00-5.30); RED CELL DISTRIBUTION WIDTH 18.6 % (11.6-17.2); WHITE BLOOD COUNT 13.3 TH/MM3 (4.0-11.0)
[2017-05-30] MEDS: FREE WATER G-TUBE SCH ×3 (03:55→18:00)
[2017-05-30] MEDS: CEFEPIME INJ 1,000 MG in SODIUM CHLORIDE 0.9% INJ 100 ML IV SCH ×2 (04:00→16:36)
[2017-05-30 04:12] LABS: BICARBONATE 29.9 MEQ/L (21.0-32.0); CALCIUM 7.8 MG/DL (8.5-10.1); CREATININE 0.29 MG/DL (0.50-1.00)
[2017-05-30] MEDS: INSULIN ASPART SUPPLEMENTAL SCALE SQ SCH ×4 (07:54→21:00)
[2017-05-30] MEDS: BENEPROTEIN POWDER 1 PACK G-TUBE SCH ×3 (09:00→18:00)
[2017-05-30] MEDS: INSULIN DETEMIR 100 UNITS/ML VIAL SQ SCH ×2 (09:00→21:00)
[2017-05-30] MEDS: SODIUM CHLORIDE 0.9% FLUSH 5 ML FLUSH IV FLUSH SCH ×2 (09:00→21:00)
[2017-05-30] MEDS: DOCUSATE SODIUM 100 MG/10 ML UDC PO SCH ×2 (09:00→20:45)
--- NOTE | 2017-05-30 09:02 | HHI.FPPN ---
Subjective Remarks Patient was transfused 1 unit of PRBC yesterday. Hemoccult was negative. Per nurse report, With CPAP trial today, patient was apneic and had to put immediately back on the vent. She is not breathing over the vent today. Patient is not responsive to the nurse calling her name today. She is not responsible and I tried to wake her up. She still moving her left spontaneously with flaccid paralysis on the right. (Jose R Bennett MD R2) Objective Vitals Vital Signs Date Time Temp Pulse Resp B/P (MAP) Pulse Ox O2 Delivery O2 Flow Rate FiO2 05/30/17 07:17 100 40 05/30/17 07:00 97 Mechanical Ventilator 40 Trach Collar 05/30/17 06:00 69 05/30/17 04:10 100 40 05/30/17 04:00 97.7 71 14 135/63 (87) 100 05/30/17 04:00 40 05/30/17 04:00 69 05/30/17 02:00 72 05/30/17 01:12 100 40 05/30/17 00:00 68 05/30/17 00:00 98.2 68 14 118/57 (77) 100 05/30/17 00:00 40 05/29/17 22:25 100 40 05/29/17 22:00 69 05/29/17 20:00 97.3 69 14 153/70 (97) 100 05/29/17 20:00 69 05/29/17 20:00 40 05/29/17 19:33 100 40 05/29/17 19:00 Mechanical Ventilator 05/29/17 18:00 70 05/29/17 16:00 40 05/29/17 16:00 97.7 68 14 134/64 (87) 100 05/29/17 16:00 68 05/29/17 15:43 40 05/29/17 15:41 100 40 05/29/17 14:00 68 05/29/17 12:00 70 05/29/17 12:00 40 05/29/17 12:00 97.9 70 24 109/53 (71) 100 05/29/17 12:00 99 40 05/29/17 10:00 81 I/O 05/29/17 05/29/17 05/29/17 05/30/17 05/30/17 05/30/17 07:00 15:00 23:00 07:00 15:00 23:00 Intake Total 1261 ml 1301 ml 630 ml Output Total 600 ml 1000 ml 450 ml Balance 661 ml 301 ml 180 ml IV Total 100 ml 250 ml 100 ml Tube Feeding 501 ml 451 ml 530 ml Tube Irrigant 60 ml Other 600 ml 600 ml 0 ml Output Urine Total 600 ml 1000 ml 450 ml # Bowel Movements 2 1 1 (Jose R Bennett MD R2) Result Diagram: 05/30/1731205/30/17312 Imaging Last Impressions Head CT 05/15/17 0000 Signed Impressions: Service Date/Time: May 19:59 - CONCLUSION: 1. 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 2. No bleed or new/acute infarct. Obdulio Simms MD Chest X-Ray 05/15/17 0000 Signed Impressions: Service Date/Time: May 12:38 - CONCLUSION: 1. A tracheostomy tube in good position with its tip 2 cm above the valerie. 2. Stable scattered pulmonary infiltrates bilaterally. 3. Dobbhoff feeding tube has its tip in the distal stomach. Enzo Farooq MD Abdomen X-Ray 05/10/17 0000 Signed Impressions: Service Date/Time: Wednesday, May 10, 2017 22:08 - CONCLUSION: Tip of Dobbhoff catheter is in the antrum of the stomach. Sage Adler MD Gall Bladder Ultrasound 05/08/17 0000 Signed Impressions: Service Date/Time: May 08:23 - CONCLUSION: Focally unremarkable appearance of the gallbladder Obdulio Chun MD Abdomen/Pelvis CT 05/07/17 0000 Signed Impressions: Service Date/Time: Sunday, May 07, 2017 13:23 - CONCLUSION: 1. Large left pneumothorax. 2. Bilateral lower lobe consolidation and bilateral moderate size pleural effusions. 3. Significant soft tissue thickening of the right lateral chest wall and left gluteus muscle. 4. Mild ascites. The findings were called to Dr. Carney. Deangelo Zamora MD Hip and Pelvis X-Ray 05/05/17 0000 Signed Impressions: Service Date/Time: Friday, May 05, 2017 10:59 - CONCLUSION: Left proximal femur trochanteric/subtrochanteric fracture lucency visualized. Postoperative changes. Choco Mustafa MD Chest CT 04/30/17 0000 Signed Impressions: Service Date/Time: Sunday, April 30, 2017 09:20 - CONCLUSION: 1. Bilateral pulmonary infiltrates more pronounced within the lower lobes with tiny bilateral pleural effusions. Material seen filling the lower lobe bronchi bilaterally either related to purulent material or perhaps mucus plugging. Deangelo Wren Jr., MD Carotid Artery Ultrasound 04/24/17 0000 Signed Impressions: Service Date/Time: April 09:45 - CONCLUSION: 1. No hemodynamically significant carotid artery stenosis. Arnie Middleton MD Hip X-Ray 04/21/17 0000 Signed Impressions: Service Date/Time: Friday, April 21, 2017 11:36 - CONCLUSION: Fluoroscopic images during placement of intramedullary siomara left femur. Benja Ramsey MD Objective Remarks CONSTITUTIONAL/GEN: Nonverbal, lying in bed with tracheostomy and PEG tubes in place. Patient's eyes still are closed today, still unarousable with touch or speech. She does spontaneously open her eyes after I leave the room. HEAD: Normocephalic. Atraumatic. Right side facial droop LUNGS: On vent with CPAP trials. Coarse breath sounds bilaterally but moving air well CARDIOVASCULAR: Regular rate and rhythm. Positive pitting edema 2+ of right upper extremity, No pitting edema of feet bilaterally. GI/ABD: hypoactive BS w/o guarding or rebound. no grimacing with palpation. Glucerna 1.5 tube feed @ 45ml/hr. 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 Moves left UE and LE spontaneously and intermittently. MUSC: SCDs on bilateral lower extremities. Pedal pulses present. SKIN: Sacral pressure ulcer extends from anus to coccyx. Urine: Urine appears dark, non-cloudy Procedures ORIF 04/21/17 Intubation 04/30/17 (Jose R Bennett MD R2) A/P Assessment and Plan 76 y/o female with HTN, DM, CVA admitted for DKA and hip fracture. Sadly, patients with hip fractures have other problems and have a high chance of fatal conditions near the time of their fractures. Hip fractures are often a marker for other frailty. Now with massive left MCA stroke, right hemiplegia and midline shift resolving. Neurology and data entry operator consulted. Poor prognosis per neurology. Working with palliative care and daughter for goals of care. Now treating for UTI and attempting to wean off vent. Discharge Planning Pending stroke progression and discussion for goals of care She has no Insurance. Medicaid was applied for and she cannot have this as she is not a [place] citizen and has not lived in the [place] long enough. She cannot go to a vent facility nor a SNF without insurance. Case management explained that to her daughter. Per her daughter, she continues to believe she will improve back to her norm at some point and wants to keep her with aggressive measures. She is looking for rehab as she believes her mother can improve. (Jose R Bennett MD R2) Attending Attestation Patient examined and case discussed with resident physicians I have read the above note and agree with the assessment/plan discussed with me I was involved in all medical decision making for this patient Fazal Zamora M.D. (Fazal Zamora MD) Problem List: (1) Anemia ICD Codes: D64.9 - Anemia, unspecified Plan: s/p 1u of PRBC on 05/29/17. Hgb stable since then. Hemoccult negative. - monitor H&H (2) UTI (urinary tract infection) ICD Codes: N39.0 - Urinary tract infection, site not specified Status: Acute Plan: -cefepime 1 g every 12 hours (05/27 start, Day #12/06) History: -05/25 Nurse reported malodorous urine; patient had required straight cath's q6h for the previous 5 days. Leavitt ordered. -UA: + leuk est, + nitrate, + WBC - Continue Leavitt cath - Urine culture grew Citrobacter freundii resistant to ceftriaxone - Rocephin 1g IV q24h (05/26 - 05/27) changed to cefepime (given low JEFFREY <2). Plan for cefepime 1 g every 12 hours for 7 to 10 days. (05/27 - present) (3) Urinary retention ICD Codes: R33.9 - Retention of urine, unspecified Plan: Patient was requiring intermittent catheterization until development of UTI, then Leavitt was placed. -Stop Leavitt catheter today -intermittent cath's q6h (4) Acute CVA (cerebrovascular accident) ICD Codes: I63.9 - Cerebral infarction, unspecified Status: Acute Plan: -Consulted data entry operator, appreciate recs: s/p Tracheostomy 05/15 and PEG tube insertion 05/16 with poor prognosis -wean off vent as tolerated -Neurosurgery consulted -Recommended conservative management -Sustainable Communities Designer consulted and appreciated: -Tube feeds: Glucerna 1.5 tube feed @ 45ml/hr 24 hours a day for diet via PEG tube -maintenance fluid through PEG tube: free water 300cc q6h as she needs maintenance fluid of about 95 ml/hr -Physical therapy consulted and appreciated -Consulted palliative care-appreciate recs. appreciate help in talking to her daughter -Daughter continues to want aggressive care. Wishes to continue aggressive medical treatment despite prognosis -Neurology consulted-appreciate recs: Poor prognosis -Rectal ASA -Lovenox 40mg daily History and imaging: Patient found minimally responsive with neurological deficits around 0820 04/24. Stat CT of head was ordered, which showed large left MCA infarct. Diffuse edema throughout the left MCA distribution, suggested completed infarct. This was discussed and was not a candidate for intracranial intervention. CT (04/30): Reduction in midline shift to 11mm. Unchanged large left MCA infarction. CT head (05/06) shows: Evolving large left-sided MCA territory infarct with minimally improved [id number] subfalcine shift. No intercurrent hemorrhage or other acute abnormality. Echocardiogram- The left ventricular systolic function is low normal with an estimated ejection fraction in the range of 50-55%. Mild concentric left ventricular hypertrophy. Normal left ventricular size. [id number] mitral valve regurgitation. Carotid Artery US- No hemodynamically significant carotid stenosis (5) On mechanically assisted ventilation ICD Codes: Z99.11 - Dependence on respirator [ventilator] status Plan: Impression: s/p trach procedure 05/15. This morning he had difficulty tolerating CPAP and was placed back on vent. -Continue weaning trials as tolerated (6) Sacral decubitus ulcer ICD Codes: L89.159 - Pressure ulcer of sacral region, unspecified stage Plan: Patient with small sacral decubitus ulcer over the coccyx. -Wound care consult appreciated: 1. Please cleanse buttock, coccyx, and sacral areas gently with soap and water and apply thick layer of Calazime barrier cream BID and PRN and leave wound open to air for now. 2. Order pressure relieving support surface mattress or bed such as halifax airapy or K-4 bed from [facility]. 3. Continue to turn patient every 2 hours or PRN for comfort. 4. Please do not put thick cloth underpads under patient for turning purposes. Please use flat turn sheet and ultra sorb pads for incontinence management. (7) Diarrhea ICD Codes: R19.7 - Diarrhea, unspecified Status: Chronic Plan: Nurse reported diarrhea. -C diff stool PCR negative (8) Type 2 diabetes mellitus ICD Codes: E11.9 - Type 2 diabetes mellitus without complications Status: Chronic Plan: - Switched to Levemir 7AM + 7 PM for hyperglycemia, fingersticks have improved (110-258) - Continue low dose ISS, goal 140-180 -Glucerna for PEG tube feedings @ 45 ml/hr History: Admitted for DKA which has now resolved. Hemoglobin A1C is 12.9. Diabetes Type I is uncontrolled. 05/22 - 8PM stating pt BG level at 60 and hypoglycemia protocol started Levemir 5AM + 5PM until raised on 05/28 (9) Hypertension ICD Codes: I10 - Essential (primary) hypertension Status: Acute Plan: BPs at goal overnight -Antihypertensives to keep SBP<180 -Lasix or Bumex for diuresis as required (10) Atrial fibrillation ICD Codes: I48.91 - Unspecified atrial fibrillation Status: Resolved Plan: Hx of intermittent Afib. Resolved with administration of Lopressor. -Continue to monitor -Lopressor PRN (11) Hip fracture ICD Codes: S72.009A - Fracture of unspecified part of neck of unspecified femur , initial encounter for closed fracture Status: Resolved Plan: S/P left hip reduction and intramedullary nail fixation on 04-21-17 -Consulted orthopedics-appreciate recs * WBAT * Daily dressing changes -Calcium/Vitamin D -Fluids as above -Tylenol, morphine PRN pain, but it is difficult to tell if she is having pain (12) Fluids, Electrolytes, and Nutrition Status: Acute Plan: Fluids: through PEG tube Electrolyte: on electrolyte protocol Nutrition: Glucerna tube feeds and free water DVT ppx: SCDs/lovenox 40 mg daily CVA ppx: aspirin 325 mg GI ppx: Lansoprazole Colace, fleet enema mineral oil PRN (Jose R Bennett MD R2) Problem Qualifiers (1) UTI (urinary tract infection): Qualified Codes: N39.0 - Urinary tract infection, site not specified (2) Sacral decubitus ulcer: Qualified Codes: L89.151 - Pressure ulcer of sacral region, stage 1 (3) Type 2 diabetes mellitus: Qualified Codes: E11.9 - Type 2 diabetes mellitus without complications (4) Hypertension: Qualified Codes: I10 - Essential (primary) hypertension (5) Atrial fibrillation: Qualified Codes: I48.0 - Paroxysmal atrial fibrillation (6) Hip fracture: Jose R Bennett MD R2 May 30, 2017 09:02 Fazal Zamora MD May 30, 2017 11:35
[2017-05-30] MEDS: CHOLECALCIFEROL (VIT D3) 5000 UNIT CAP PO SCH (10:37)
[2017-05-30] MEDS: CALCIUM/VITAMIN D 250 MG/125 U TAB PO SCH ×3 (10:37→18:00)
[2017-05-30] MEDS: LANSOPRAZOLE SOLUTAB 30 MG TAB NG SCH (10:37)
--- NOTE | 2017-05-30 10:37 | HHI.CCPN ---
Subjective Remarks/Hospital Course Note for 05/30/17: 04/24: 76-year-old female with a medical history significant for prior stroke, diabetes mellitus who was admitted with DKA and a hip fracture for which she underwent ORIF on 04/21. Patient developed altered mental status and was last noted to be okay around 5:30 AM. Subsequently there was a change in her mental status and she was noted to not be moving her right side for which stroke alert was called. Head CT showed large left MCA territory ischemic infarct with edema. Patient was transferred to the ICU by family medicine service in the critical care consult was requested. I evaluated the patient following arrival to the ICU. At that time she was laying in bed with her eyes open however not following commands and had a dense right hemiplegia. Patient was also evaluated by Dr. Malave from neurology. I further discussed current event with patient's daughter following her arrival to the ICU. Per the daughter patient has been living with her since her stroke in 2014 and does ambulate however has been having problems with memory and incontinence as well as gait difficulties. She does not feel patient would want intubation or tracheostomy or PEG tube. 04/25: Patient remains encephalopathic, awake though not following commands consistently. Dense right hemiplegia persists. Appears to be awake enough to protect airway currently. Patient's daughter rescinded DNR and made a full code last evening. 04/26: Remains encephalopathic, not following commands. On Dobbhoff for tube feeds at 30 cc per hour. Had urinary retention and drained 2 L of urine after placing Moser catheter today. CT head done this morning with large left MCA territory infarct with left to right midline shift and significant cerebral edema. Hyperglycemia noted. Patient given mannitol earlier for increasing cerebral edema. 04/27: Remains encephalopathic, not following commands. On Dobbhoff tube feeds at 30 cc per hour. When into A. fib with RVR last night which responded with Lopressor 5 mg IV 1 dose. 04/28: Remains encephalopathic, arousable, not following commands. Moves left upper extremity spontaneously. Tolerating Dobbhoff tube feeds. Remains on nasal cannula. 04/29: Encephalopathic, eyes be arousable, moves left upper extremity spontaneously and occasionally opens eyes. Dense right hemiplegia and aphasia persists. On nasal cannula. Dobbhoff tube feeds being advanced. Patient was transfused 1 unit PRBCs yesterday. Urine culture with yeast from yesterday for which fluconazole being started. Had brief run of A. fib with RVR which improved with Lopressor IV, currently in sinus rhythm. 04/30: Worsening hypoxemic respiratory failure, currently on partial nonrebreather. Remains lethargic. WBC count increased from 14.6 today 20.7. Chest x-ray shows bilateral worsening infiltrates and small pleural effusions. Sodium 154, weight up by 8 KG. Albumin 1 mg Bumex 1. Also one dose of albumin. Remains in sinus tachycardia. Tmax 101.3 05/01: Patient was intubated yesterday for lack of airway protection, and severe hypoxemic respiratory failure from aspiration pneumonia involving multiple lobes. Patient is on the vent lethargic, no spontaneous eye opening. Chest x- ray remains unchanged. Remains intermittently febrile Tmax 101.3. WBC count improving 05/02: Remains critically ill with no improvement in mental status. Spiking fever of 101.7. Blood culture and sputum culture with staph aureus sputum also growing GNR, WBC count 22,000 now indicating worsening sepsis. Daughter still requesting aggressive care. Palliative care is following 05/03: S/P large area dominant hemisphere CVA. No neurological improvement. Now with pneumonia (infiltrate, fever, leukocytosis) and appropriate abx coverage. She will have a hard time surviving the hip fx, CVA, and pneumonia. Palliative Care needs to be a mainstay of our plan. 05/04: No improvement in neuro status. Sputum C&S allows us to narrow abx coverage to levaquin alone. Lungs remain quite congested. Enteral nutrition tolerated. 05/05: No improvement in neuro status. Moves left arm spontaneously. Flaccid right side. Unresponsive. Persistent mild hypoglycemia - will cut Levemir 50%. Abdomen more distended, check KUB. 05/06: CT head with massive left MCA infarction and > 1 cm shift in right handed woman. She opens eyes, does not track. 05/07: Patient open eyes. Attempts to respond. [place] speaking. Tolerating tube feeds. Positive bowel movement. Volume overloaded. 05/08: Tmax 99.4. Potassium being replaced. Ultrasound gallbladder currently pending. Transaminases are trending downward. Gently diurese. 05/09: Alk phos decreasing. Remains with good urine output. Neurological status not improving. 05/10: Fixed neuro deficit unchanged. Profound CVA. 05/11: Appears to track with eyes today. No improvement in motor function. Remains very edematous, diuretics doubled. 05/12: Continued thick secretions. Afebrile, leukocytosis resolved. 05/13: CT head with completed left MCA stroke, persistent edema and 5 mm shift away. Does not last long on SBTs - major decision now is trach/PEG. 05/14: Daughter has decided to proceed with trach and PEG. I have been pessimistic with her about chances for a meaningful recovery. 05/15: Plan for trach today. No change in neuro status. Still ventilator dependent. 05/16: Trach completed. Await PEG and disposition. 05/17: PEG placed 05/16. Start TFs today after nutrition consult. Work to place patient. 05/18: No improvement. Does open eyes, no focus or tracking. Completed large dominant (left) hemisphere CVA in right handed woman with severe deficit. Medicaid pending status, [employer] is following. 05/19: no improvements in neuro exam. ready for LTAC. will d/c moser and rectal tubes. 05/20: no changes or improvements. very difficult placement due to patient not [place] citizen. 05/21: no improvements. resting on vent overnight due to distress. 05/22: no neurologic changes. no improvements. attempted T-piece which failed after 10 minutes. 05/23: no improvements. poor prognosis. poor neuro exam. still failing weaning trials. Subjective 05/24: no improvements or changes. still failing t-piece trials. 05/25: No acute changes of improvement overnight. Failed CPAP due to apnea, tried again currently tolerating. Neurological exam unchanged. 05/26: No improvement in neurological function. 05/27: Patient has required Moser catheter because of breakdown of skin on upper thighs and groin. Urine has become infected, will treat. 05/28: Some drainage from around trach (placed 2 weeks ago). Will change out trach tube and inspect neck wound. I&O straight cath q6h order entered 05/17. 05/29: No improvement, largely obtunded. 05/30: Obtunded, unresponsive. Failed SBTs, remains ventilator dependent. Objective Vital Signs Date Time Temp Pulse Resp B/P (MAP) Pulse Ox O2 Delivery O2 Flow Rate FiO2 05/30/17 08:00 40 05/30/17 08:00 72 05/30/17 07:17 100 05/30/17 07:00 Mechanical Ventilator Trach Collar 05/30/17 04:00 97.7 14 135/63 (87) 05/29/17 07:38 6.00 Intake and Output 05/30/17 05/30/17 05/31/17 08:00 16:00 00:00 Intake Total 630 ml Output Total 450 ml Balance 180 ml Result Diagram: 05/30/17 0313 05/30/17 0313 Other Results Microbiology Date/Time Source Procedure Growth Status 05/29/17 17:15 Stool Stool Stool Occult Blood (JEFFREY) - Final HEMOCCULT NEGATIVE Complete Imaging Last Impressions Chest X-Ray 05/07/17 0400 Signed Impressions: Service Date/Time: Sunday, May 07, 2017 04:38 - CONCLUSION: 1. Stable Low-lying ETT with tip approximately 1 cm above the valerie. 2. Mild interval progression of bilateral airspace consolidation exaggerated by patient rotation. 3. Increased small left pleural effusion. Alejo De La Vega MD Abdomen/Pelvis CT 05/07/17 0000 Signed Impressions: Service Date/Time: Sunday, May 07, 2017 13:23 - CONCLUSION: 1. Large left pneumothorax. 2. Bilateral lower lobe consolidation and bilateral moderate size pleural effusions. 3. Significant soft tissue thickening of the right lateral chest wall and left gluteus muscle. 4. Mild ascites. The findings were called to Dr. Carney. Deangelo Zamora MD Head CT 05/06/17 0000 Signed Impressions: Service Date/Time: Saturday, May 06, 2017 04:18 - CONCLUSION: 1. Evolving large left-sided MCA territory infarct with minimally improved [id number] subfalcine shift. 2. No intercurrent hemorrhage or other acute abnormality. Alejo De La Vega MD Abdomen X-Ray 05/06/17 0000 Signed Impressions: Service Date/Time: Saturday, May 06, 2017 17:42 - CONCLUSION: Dobbhoff feeding tube tip near the gastroduodenal junction. Obdulio Simms MD Hip and Pelvis X-Ray 05/05/17 0000 Signed Impressions: Service Date/Time: Friday, May 05, 2017 10:59 - CONCLUSION: Left proximal femur trochanteric/subtrochanteric fracture lucency visualized. Postoperative changes. Choco Mustafa MD Chest CT 04/30/17 0000 Signed Impressions: Service Date/Time: Sunday, April 30, 2017 09:20 - CONCLUSION: 1. Bilateral pulmonary infiltrates more pronounced within the lower lobes with tiny bilateral pleural effusions. Material seen filling the lower lobe bronchi bilaterally either related to purulent material or perhaps mucus plugging. Deangelo Wren Jr., MD Carotid Artery Ultrasound 04/24/17 0000 Signed Impressions: Service Date/Time: April 09:45 - CONCLUSION: 1. No hemodynamically significant carotid artery stenosis. Arnie Middleton MD Hip X-Ray 04/21/17 0000 Signed Impressions: Service Date/Time: Friday, April 21, 2017 11:36 - CONCLUSION: Fluoroscopic images during placement of intramedullary siomara left femur. Benja Ramsey MD Objective Remarks Gen: 76-year-old female, unresponsive. HEENT: mucous membranes moist. Neck: trached. site clean and dry. Chest/pulmonary: unlabored. on ventilator. Cardiovascular: RRR. No murmurs, no JVD. GI/abdomen: Distended. Nontender. BS active, no guarding. Extremities: Warm bilaterally, edema lowers. Incision sites over left hip, site clean dry and intact. Skin: Breakdown of skin on medial aspect of both thighs. Irritated by urine. Neuro: On no sedation. No eye opening and grimaces spontaneously. Dense right hemiplegia noted. Withdraws left upper extremity, Withdraws LLE. No change. Pupils 2 mm, react. A/P Assessment and Plan Neuro/Psych: Left MCA CVA - 12 mm of [id number] subfalcine herniation - right-sided hemiplegia Acute encephalopathy History CVA Follow neuro status closely. Continue Aspirin 325 mg by mouth daily Patient was not a candidate for thrombolysis per discussion with neurology and radiology. Repeat head CT 05/05 showed slight improvement in the midline shift and mass effect Neurosurgery consulted 04/30- Dr. López, recommended conservative management Neurology following - Dr. Malave Cardiovascular: Hypertension IV fluids currently on hold due to edema As needed Antihypertensives to keep systolic blood pressure less than to 160 mmHg Echocardiogram 04/24 - EF 50 to 55%. Mild concentric LVH. Pulmonary: Acute hypoxic respiratory failure - aspiration possible HCAP Large left pneumothorax status post #10 Slov[place] chest tube 05/07 Ventilator bundle. Ipratropium/albuterol aerosols every 6 hours with albuterol aerosols every 2 hours Chest tube d/c'd 05/12 Daily SBTs. failing for tachypnea. will continue trials daily. TP if CPAP tolerated GI/liver: Elevated transaminases Hypoalbuminemia Moderate to severe protein calorie malnutrition Dobbhoff for tube feedings and medications. Continue tube feeding with Glucerna 1.5 goal 45 cc an hour Lansoprazole 30 mg daily for GI regimen Docusate sodium 100 twice a day, Senokot 8.6 twice a day, polyethylene glycol 17 grams twice a day and lactulose 30 cc 4 times a day Evaluate CT abdomen/pelvis 05/07 - mild ascites. Large left hemothorax. Right greater than left pleural effusion. LFTs improving. Alk Phos elevated again 05/18. continue fiber in tube feed diet. Endocrine: Diabetes mellitus Detemir 8 units subcutaneous daily. SSI high dose q4h. Holding glimepiride 4 mg by mouth daily /Renal/FEN: Hypokalemia Strict intake output, monitor and replete electrolytes, follow BUN/creatinine. Moser catheter placed for urinary retention on 04/26. Moser removed 05/19 with q6h straight cath. Heme: Chronic Rivaroxaban use Leukocytosis Normocytic anemia Thrombocytosis Follow CBC and coags. On subcutaneous enoxaparin Hemoglobin currently stable. No indications for transfusion of blood proximally at this time ID: MSSA bacteremia Serratia/staph aureus pneumonia C glabrata UTI Pertinent cultures Urine culture 04/26/17 sofie glabrata Blood culture 04/29/17 1 out of 4 bottles staph aureus Sputum culture 04/30/17 staph aureus and Serratia. Blood cultures 2, sputum 1 and urine 05/08 pending -> Serratia, treated. Urine 05/26: GNR Ceftriaxone started 05/26 MSK: Left Intertroch Hip Fx s/p IMN Vitamin D deficiency Prophylaxis: SCDs. Enoxaparin 40 mg sq daily-cleared by Dr. Ananda SANDS - lansoprazole Overall impression: Severe dominant hemisphere CVA. No improvement. Poor prognosis. Very difficult wean given age, comorbidities and deconditioning. PEG placed. No change in neuro status. Medicaid pending for placement. Unable to place and little hope for any significant recovery. Charles Pedraza MD May 30, 2017 10:37
[2017-05-30] MEDS: FUROSEMIDE 40 MG/5 ML UNIT DOSE CUP NG SCH (10:38)
[2017-05-30] MEDS: ASPIRIN 325 MG TAB DOBHOFF SCH (10:38)
[2017-05-31] VITALS (19 sets, daily range): BP systolic 118–172; BP diastolic 58–76; PULSE 56–72; RESP 14; TEMP 97.7–99.1; O2SAT 98–100
[2017-05-31] MEDS: METOPROLOL TARTRATE 5 MG/5 ML VIAL IV PUSH PRN ×2 (03:04→06:48)
[2017-05-31] MEDS: CEFEPIME INJ 1,000 MG in SODIUM CHLORIDE 0.9% INJ 100 ML IV SCH ×2 (04:08→16:47)
[2017-05-31] MEDS: FREE WATER G-TUBE SCH ×5 (05:11→23:04)
[2017-05-31] MEDS: ENALAPRILAT 1.25 MG/ML VIAL IV PUSH PRN (05:28)
[2017-05-31 05:32] LABS: CREATININE 0.33 MG/DL (0.50-1.00)
--- NOTE | 2017-05-31 07:49 | HHI.CCPN ---
Subjective Remarks/Hospital Course Note for 05/30/17: 04/24: 76-year-old female with a medical history significant for prior stroke, diabetes mellitus who was admitted with DKA and a hip fracture for which she underwent ORIF on 04/21. Patient developed altered mental status and was last noted to be okay around 5:30 AM. Subsequently there was a change in her mental status and she was noted to not be moving her right side for which stroke alert was called. Head CT showed large left MCA territory ischemic infarct with edema. Patient was transferred to the ICU by family medicine service in the critical care consult was requested. I evaluated the patient following arrival to the ICU. At that time she was laying in bed with her eyes open however not following commands and had a dense right hemiplegia. Patient was also evaluated by Dr. Malave from neurology. I further discussed current event with patient's daughter following her arrival to the ICU. Per the daughter patient has been living with her since her stroke in 2014 and does ambulate however has been having problems with memory and incontinence as well as gait difficulties. She does not feel patient would want intubation or tracheostomy or PEG tube. 04/25: Patient remains encephalopathic, awake though not following commands consistently. Dense right hemiplegia persists. Appears to be awake enough to protect airway currently. Patient's daughter rescinded DNR and made a full code last evening. 04/26: Remains encephalopathic, not following commands. On Dobbhoff for tube feeds at 30 cc per hour. Had urinary retention and drained 2 L of urine after placing Moser catheter today. CT head done this morning with large left MCA territory infarct with left to right midline shift and significant cerebral edema. Hyperglycemia noted. Patient given mannitol earlier for increasing cerebral edema. 04/27: Remains encephalopathic, not following commands. On Dobbhoff tube feeds at 30 cc per hour. When into A. fib with RVR last night which responded with Lopressor 5 mg IV 1 dose. 04/28: Remains encephalopathic, arousable, not following commands. Moves left upper extremity spontaneously. Tolerating Dobbhoff tube feeds. Remains on nasal cannula. 04/29: Encephalopathic, eyes be arousable, moves left upper extremity spontaneously and occasionally opens eyes. Dense right hemiplegia and aphasia persists. On nasal cannula. Dobbhoff tube feeds being advanced. Patient was transfused 1 unit PRBCs yesterday. Urine culture with yeast from yesterday for which fluconazole being started. Had brief run of A. fib with RVR which improved with Lopressor IV, currently in sinus rhythm. 04/30: Worsening hypoxemic respiratory failure, currently on partial nonrebreather. Remains lethargic. WBC count increased from 14.6 today 20.7. Chest x-ray shows bilateral worsening infiltrates and small pleural effusions. Sodium 154, weight up by 8 KG. Albumin 1 mg Bumex 1. Also one dose of albumin. Remains in sinus tachycardia. Tmax 101.3 05/01: Patient was intubated yesterday for lack of airway protection, and severe hypoxemic respiratory failure from aspiration pneumonia involving multiple lobes. Patient is on the vent lethargic, no spontaneous eye opening. Chest x- ray remains unchanged. Remains intermittently febrile Tmax 101.3. WBC count improving 05/02: Remains critically ill with no improvement in mental status. Spiking fever of 101.7. Blood culture and sputum culture with staph aureus sputum also growing GNR, WBC count 22,000 now indicating worsening sepsis. Daughter still requesting aggressive care. Palliative care is following 05/03: S/P large area dominant hemisphere CVA. No neurological improvement. Now with pneumonia (infiltrate, fever, leukocytosis) and appropriate abx coverage. She will have a hard time surviving the hip fx, CVA, and pneumonia. Palliative Care needs to be a mainstay of our plan. 05/04: No improvement in neuro status. Sputum C&S allows us to narrow abx coverage to levaquin alone. Lungs remain quite congested. Enteral nutrition tolerated. 05/05: No improvement in neuro status. Moves left arm spontaneously. Flaccid right side. Unresponsive. Persistent mild hypoglycemia - will cut Levemir 50%. Abdomen more distended, check KUB. 05/06: CT head with massive left MCA infarction and > 1 cm shift in right handed woman. She opens eyes, does not track. 05/07: Patient open eyes. Attempts to respond. [place] speaking. Tolerating tube feeds. Positive bowel movement. Volume overloaded. 05/08: Tmax 99.4. Potassium being replaced. Ultrasound gallbladder currently pending. Transaminases are trending downward. Gently diurese. 05/09: Alk phos decreasing. Remains with good urine output. Neurological status not improving. 05/10: Fixed neuro deficit unchanged. Profound CVA. 05/11: Appears to track with eyes today. No improvement in motor function. Remains very edematous, diuretics doubled. 05/12: Continued thick secretions. Afebrile, leukocytosis resolved. 05/13: CT head with completed left MCA stroke, persistent edema and 5 mm shift away. Does not last long on SBTs - major decision now is trach/PEG. 05/14: Daughter has decided to proceed with trach and PEG. I have been pessimistic with her about chances for a meaningful recovery. 05/15: Plan for trach today. No change in neuro status. Still ventilator dependent. 05/16: Trach completed. Await PEG and disposition. 05/17: PEG placed 05/16. Start TFs today after nutrition consult. Work to place patient. 05/18: No improvement. Does open eyes, no focus or tracking. Completed large dominant (left) hemisphere CVA in right handed woman with severe deficit. Medicaid pending status, [employer] is following. 05/19: no improvements in neuro exam. ready for LTAC. will d/c moser and rectal tubes. 05/20: no changes or improvements. very difficult placement due to patient not [place] citizen. 05/21: no improvements. resting on vent overnight due to distress. 05/22: no neurologic changes. no improvements. attempted T-piece which failed after 10 minutes. 05/23: no improvements. poor prognosis. poor neuro exam. still failing weaning trials. Subjective 05/24: no improvements or changes. still failing t-piece trials. 05/25: No acute changes of improvement overnight. Failed CPAP due to apnea, tried again currently tolerating. Neurological exam unchanged. 05/26: No improvement in neurological function. 05/27: Patient has required Moser catheter because of breakdown of skin on upper thighs and groin. Urine has become infected, will treat. 05/28: Some drainage from around trach (placed 2 weeks ago). Will change out trach tube and inspect neck wound. I&O straight cath q6h order entered 05/17. 05/29: No improvement, largely obtunded. 05/30: Obtunded, unresponsive. Failed SBTs, remains ventilator dependent. 05/31: Patient continues to fail SBT failed yesterday due to apnea. Neuro exam remains unchanged. Objective Vital Signs Date Time Temp Pulse Resp B/P (MAP) Pulse Ox O2 Delivery O2 Flow Rate FiO2 05/31/17 06:00 64 05/31/17 04:00 97.9 14 153/75 (101) 100 05/31/17 04:00 40 05/30/17 19:00 Mechanical Ventilator Trach Collar 05/29/17 07:38 6.00 Intake and Output 05/31/17 05/31/17 06/01/17 08:00 16:00 00:00 Intake Total 1038 ml Output Total 800 ml Balance 238 ml Result Diagram: 05/30/17 0313 05/31/17 0452 Other Results Microbiology Date/Time Source Procedure Growth Status 05/29/17 17:15 Stool Stool Stool Occult Blood (JEFFREY) - Final HEMOCCULT NEGATIVE Complete Imaging Last Impressions Chest X-Ray 05/07/17 0400 Signed Impressions: Service Date/Time: Sunday, May 07, 2017 04:38 - CONCLUSION: 1. Stable Low-lying ETT with tip approximately 1 cm above the valerie. 2. Mild interval progression of bilateral airspace consolidation exaggerated by patient rotation. 3. Increased small left pleural effusion. Alejo De La Vega MD Abdomen/Pelvis CT 05/07/17 0000 Signed Impressions: Service Date/Time: Sunday, May 07, 2017 13:23 - CONCLUSION: 1. Large left pneumothorax. 2. Bilateral lower lobe consolidation and bilateral moderate size pleural effusions. 3. Significant soft tissue thickening of the right lateral chest wall and left gluteus muscle. 4. Mild ascites. The findings were called to Dr. Carney. Deangelo Zamora MD Head CT 05/06/17 0000 Signed Impressions: Service Date/Time: Saturday, May 06, 2017 04:18 - CONCLUSION: 1. Evolving large left-sided MCA territory infarct with minimally improved nogl-qi-jovau subfalcine shift. 2. No intercurrent hemorrhage or other acute abnormality. Alejo De La Vega MD Abdomen X-Ray 05/06/17 0000 Signed Impressions: Service Date/Time: Saturday, May 06, 2017 17:42 - CONCLUSION: Dobbhoff feeding tube tip near the gastroduodenal junction. Obdulio Simms MD Hip and Pelvis X-Ray 05/05/17 0000 Signed Impressions: Service Date/Time: Friday, May 05, 2017 10:59 - CONCLUSION: Left proximal femur trochanteric/subtrochanteric fracture lucency visualized. Postoperative changes. Choco Mustafa MD Chest CT 04/30/17 0000 Signed Impressions: Service Date/Time: Sunday, April 30, 2017 09:20 - CONCLUSION: 1. Bilateral pulmonary infiltrates more pronounced within the lower lobes with tiny bilateral pleural effusions. Material seen filling the lower lobe bronchi bilaterally either related to purulent material or perhaps mucus plugging. Deangelo Wren Jr., MD Carotid Artery Ultrasound 04/24/17 0000 Signed Impressions: Service Date/Time: April 09:45 - CONCLUSION: 1. No hemodynamically significant carotid artery stenosis. Arnie Middleton MD Hip X-Ray 04/21/17 0000 Signed Impressions: Service Date/Time: Friday, April 21, 2017 11:36 - CONCLUSION: Fluoroscopic images during placement of intramedullary siomara left femur. Benja Ramsey MD Objective Remarks Gen: 76-year-old female, unresponsive. HEENT: mucous membranes moist. Neck: Trached. site clean and dry. Chest/pulmonary: unlabored. on ventilator. Cardiovascular: RRR. No murmurs, no JVD. GI/abdomen: Distended. Nontender. BS active, no guarding. Extremities: Warm bilaterally, edema lowers. Incision sites over left hip, site clean dry and intact. Skin: Breakdown of skin on medial aspect of both thighs. Irritated by urine. Neuro: On no sedation. Grimaces spontaneously, without opening eyes. Dense right hemiplegia. Withdraws left upper extremity, Withdraws LLE. No change. Pupils 2 mm, react. A/P Assessment and Plan Neuro/Psych: Left MCA CVA - 12 mm of [id number]-ptvgt subfalcine herniation - right-sided hemiplegia Acute encephalopathy History CVA Follow neuro status closely. Continue Aspirin 325 mg by mouth daily Patient was not a candidate for thrombolysis per discussion with neurology and radiology. Repeat head CT 05/05 showed slight improvement in the midline shift and mass effect Neurosurgery consulted 04/30- Dr. López, recommended conservative management Neurology following - Dr. Malave Cardiovascular: Hypertension IV fluids currently on hold due to edema As needed Antihypertensives to keep systolic blood pressure less than to 160 mmHg (when necessary IV labetalol and IV hydralazine) Start lisinopril 10 mg twice a day 05/31/17 Echocardiogram 04/24 - EF 50 to 55%. Mild concentric LVH. Pulmonary: Acute hypoxic respiratory failure - aspiration possible HCAP Large left pneumothorax status post #10 Maori chest tube 05/07 Ventilator bundle. Ipratropium/albuterol aerosols every 6 hours with albuterol aerosols every 2 hours Chest tube d/c'd 05/12 Daily SBTs. failing for apnea. will continue trials daily. TP if CPAP tolerated GI/liver: Elevated transaminases Hypoalbuminemia Moderate to severe protein calorie malnutrition Continue PEG tube feeding with Glucerna 1.5 goal 45 cc an hour Lansoprazole 30 mg daily for GI regimen Docusate sodium 100 twice a day, Senokot 8.6 twice a day, polyethylene glycol 17 grams twice a day and lactulose 30 cc 4 times a day Evaluate CT abdomen/pelvis 05/07 - mild ascites. Large left hemothorax. Right greater than left pleural effusion. Endocrine: Diabetes mellitus Detemir 8 units subcutaneous daily. SSI high dose q4h. Holding glimepiride 4 mg by mouth daily /Renal/FEN: Hypokalemia Strict intake output, monitor and replete electrolytes, follow BUN/creatinine. Moser catheter placed for urinary retention on 04/26. Moser removed 05/19 with q6h straight cath. Heme: Chronic Rivaroxaban use Leukocytosis Normocytic anemia Thrombocytosis Follow CBC and coags. On subcutaneous enoxaparin Hemoglobin currently stable. No indications for transfusion of blood proximally at this time ID: MSSA bacteremia Serratia/staph aureus pneumonia C glabrata UTI Citrobacter UTI Pertinent cultures Urine culture 04/26/17 sofie glabrata Blood culture 04/29/17 1 out of 4 bottles staph aureus Sputum culture 04/30/17 staph aureus and Serratia. Blood cultures 2, sputum 1 and urine 05/08 pending -> Serratia, treated. Urine 05/26: Citrobacter Ceftriaxone started 05/26, changed to Cefepime 05/27 based on sensitivity, stop date 06/03/17 MSK: Left Intertroch Hip Fx s/p IMN Vitamin D deficiency Prophylaxis: SCDs. Enoxaparin 40 mg sq daily-cleared by Dr. Malave GI - lansoprazole Overall impression: Severe dominant hemisphere CVA. No improvement. Poor prognosis. Very difficult wean given age, comorbidities and deconditioning. PEG placed. No change in neuro status. Medicaid pending for placement. Unable to place and little hope for any significant recovery. Medications adjusted new medication started for uncontrolled blood pressure Level 2 Meg Mak MD May 31, 2017 07:49
[2017-05-31] MEDS: INSULIN DETEMIR 100 UNITS/ML VIAL SQ SCH ×2 (08:46→20:07)
[2017-05-31] MEDS: FUROSEMIDE 40 MG/5 ML UNIT DOSE CUP NG SCH (08:46)
[2017-05-31] MEDS: INSULIN ASPART SUPPLEMENTAL SCALE SQ SCH ×4 (08:47→20:08)
[2017-05-31] MEDS: BENEPROTEIN POWDER 1 PACK G-TUBE SCH ×3 (08:47→17:27)
[2017-05-31] MEDS: LISINOPRIL 10 MG TAB PO SCH ×2 (08:47→20:07)
[2017-05-31] MEDS: CALCIUM/VITAMIN D 250 MG/125 U TAB PO SCH ×3 (08:47→17:27)
[2017-05-31] MEDS: ASPIRIN 325 MG TAB DOBHOFF SCH (08:47)
[2017-05-31] MEDS: DOCUSATE SODIUM 100 MG/10 ML UDC PO SCH ×2 (08:47→19:10)
[2017-05-31] MEDS: LANSOPRAZOLE SOLUTAB 30 MG TAB NG SCH (08:47)
[2017-05-31] MEDS: SODIUM CHLORIDE 0.9% FLUSH 5 ML FLUSH IV FLUSH SCH ×2 (08:47→20:07)
[2017-05-31] MEDS: CHOLECALCIFEROL (VIT D3) 5000 UNIT CAP PO SCH (08:48)
--- NOTE | 2017-05-31 11:59 | HHI.FPPN ---
Subjective Remarks Patient was noted to changes overnight. Patient is sleeping when I walked into the room. Patient does not arouse to stimuli with touch or voice. Per director of cardiac rehabilitation; patient is continuing to fail SBT due to apnea, status remains unchanged. Patient continues to move left hand and left foot - likely a reflex. (Tova Ortiz MD R2) Objective Vitals Vital Signs Date Time Temp Pulse Resp B/P (MAP) Pulse Ox O2 Delivery O2 Flow Rate FiO2 05/31/17 11:44 99 40 05/31/17 07:56 99 40 05/31/17 06:00 64 05/31/17 04:00 97.9 62 14 153/75 (101) 100 05/31/17 04:00 72 05/31/17 04:00 40 05/31/17 03:44 100 40 05/31/17 02:00 64 05/31/17 01:27 98 40 05/31/17 00:00 72 05/31/17 00:00 40 05/31/17 00:00 99.1 72 14 161/76 (104) 98 05/30/17 22:00 67 05/30/17 21:56 100 40 05/30/17 20:00 40 05/30/17 20:00 60 05/30/17 20:00 98.5 60 14 117/56 (76) 99 05/30/17 19:32 100 40 05/30/17 19:00 98 Mechanical Ventilator 40 Trach Collar 05/30/17 18:00 72 05/30/17 16:19 100 40 05/30/17 16:00 99.7 70 14 141/71 (94) 100 05/30/17 16:00 70 05/30/17 16:00 40 05/30/17 14:00 68 05/30/17 12:00 99.0 72 14 141/65 (90) 100 05/30/17 12:00 40 05/30/17 12:00 72 I/O 05/30/17 05/30/17 05/30/17 05/31/17 05/31/17 05/31/17 07:00 15:00 23:00 07:00 15:00 23:00 Intake Total 630 ml 1264 ml 1138 ml Output Total 450 ml 850 ml 800 ml Balance 180 ml 414 ml 338 ml IV Total 100 ml 100 ml 100 ml Tube Feeding 530 ml 564 ml 438 ml Other 0 ml 600 ml 600 ml Output Urine Total 450 ml 850 ml 800 ml # Bowel Movements 1 0 1 (Tova Ortiz MD R2) Result Diagram: 05/30/17 0313 05/31/17 0452 Objective Remarks CONSTITUTIONAL/GEN: Nonverbal, lying in bed with tracheostomy and PEG tubes in place. Patient's eyes still are closed today, still unarousable with touch or speech. She did not open her eyes to prompt. HEAD: Normocephalic. Atraumatic. Right side facial droop LUNGS: On vent with CPAP trials. Coarse breath sounds bilaterally but moving air well CARDIOVASCULAR: Regular rate and rhythm. Positive pitting edema 2+ of upper extremities bilaterally including the hands, No pitting edema of legs or of feet bilaterally (improved from prior exams). GI/ABD: hypoactive BS w/o guarding or rebound. no grimacing with palpation. Glucerna 1.5 tube feed @ 45ml/hr. 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 Moves left UE and LE spontaneously and intermittently. MUSC: SCDs on bilateral lower extremities. Pedal pulses present. SKIN: Sacral pressure ulcer extends from anus to coccyx. Procedures ORIF 04/21/17 Intubation 04/30/17 (Tova Ortiz MD R2) A/P Assessment and Plan 76 y/o female with HTN, DM, CVA admitted for DKA and hip fracture. Sadly, patients with hip fractures have other problems and have a high chance of fatal conditions near the time of their fractures. Hip fractures are often a marker for other frailty. Now with massive left MCA stroke, right hemiplegia and midline shift resolving. Neurology and director of cardiac rehabilitation consulted. Poor prognosis per neurology. Working with palliative care and daughter for goals of care. Now treating for UTI and attempting to wean off vent. Discharge Planning Pending stroke progression and discussion for goals of care She has no Insurance. Medicaid was applied for and she cannot have this as she is not a [place] citizen and has not lived in the [place] long enough. She cannot go to a vent facility nor a SNF without insurance. Case management explained that to her daughter. Per her daughter, she continues to believe she will improve back to her norm at some point and wants to keep her with aggressive measures. She is looking for rehab as she believes her mother can improve. (Tova Ortiz MD R2) Attending Attestation Pt. examined and case discussed with resident physicians. I have read the above note and agree with the assessment and plan as discussed with me. I was involved in all medical decision making for this patient. Fazal Zamora MD (Fazal Zamora MD) Problem List: (1) Anemia ICD Codes: D64.9 - Anemia, unspecified Status: Chronic Plan: s/p 1u of PRBC on 05/29/17. Hgb stable since then. Hemoccult negative. - monitor H&H (2) UTI (urinary tract infection) ICD Codes: N39.0 - Urinary tract infection, site not specified Status: Acute Plan: -cefepime 1 g every 12 hours (05/27 start, Day #01/05) History: -05/25 Nurse reported malodorous urine; patient had required straight cath's q6h for the previous 5 days. Leavitt ordered. -UA: + leuk est, + nitrate, + WBC - Continue Leavitt cath - Urine culture grew Citrobacter freundii resistant to ceftriaxone - Rocephin 1g IV q24h (05/26 - 05/27) changed to cefepime (given low JEFFREY <2). Plan for cefepime 1 g every 12 hours for 7 to 10 days. (05/27 - present) (3) Urinary retention ICD Codes: R33.9 - Retention of urine, unspecified Plan: -intermittent cath's q6h (4) Acute CVA (cerebrovascular accident) ICD Codes: I63.9 - Cerebral infarction, unspecified Status: Acute Plan: -Consulted director of cardiac rehabilitation, appreciate recs: s/p Tracheostomy 05/15 and PEG tube insertion 05/16 with poor prognosis -wean off vent as tolerated -Neurosurgery consulted -Recommended conservative management -Business Process Manager consulted and appreciated: -Tube feeds: Glucerna 1.5 tube feed @ 45ml/hr 24 hours a day for diet via PEG tube -maintenance fluid through PEG tube: free water 300cc q6h as she needs maintenance fluid of about 95 ml/hr -Physical therapy consulted and appreciated -Consulted palliative care-appreciate recs. appreciate help in talking to her daughter -Daughter continues to want aggressive care. Wishes to continue aggressive medical treatment despite prognosis -Neurology consulted-appreciate recs: Poor prognosis -Rectal ASA -Lovenox 40mg daily History and imaging: Patient found minimally responsive with neurological deficits around 0820 04/24. Stat CT of head was ordered, which showed large left MCA infarct. Diffuse edema throughout the left MCA distribution, suggested completed infarct. This was discussed and was not a candidate for intracranial intervention. CT (04/30): Reduction in midline shift to 11mm. Unchanged large left MCA infarction. CT head (05/06) shows: Evolving large left-sided MCA territory infarct with minimally improved [id number] subfalcine shift. No intercurrent hemorrhage or other acute abnormality. Echocardiogram- The left ventricular systolic function is low normal with an estimated ejection fraction in the range of 50-55%. Mild concentric left ventricular hypertrophy. Normal left ventricular size. Tgnbh-[id number]-[id number] mitral valve regurgitation. Carotid Artery US- No hemodynamically significant carotid stenosis (5) On mechanically assisted ventilation ICD Codes: Z99.11 - Dependence on respirator [ventilator] status Plan: Impression: s/p trach procedure 05/15. This morning he had difficulty tolerating CPAP and was placed back on vent. -Continue weaning trials as tolerated (6) Sacral decubitus ulcer ICD Codes: L89.159 - Pressure ulcer of sacral region, unspecified stage Plan: Patient with small sacral decubitus ulcer over the coccyx. -Wound care consult appreciated: 1. Please cleanse buttock, coccyx, and sacral areas gently with soap and water and apply thick layer of Calazime barrier cream BID and PRN and leave wound open to air for now. 2. Order pressure relieving support surface mattress or bed such as halifax airapy or K-4 bed from [facility]. 3. Continue to turn patient every 2 hours or PRN for comfort. 4. Please do not put thick cloth underpads under patient for turning purposes. Please use flat turn sheet and ultra sorb pads for incontinence management. (7) Diarrhea ICD Codes: R19.7 - Diarrhea, unspecified Status: Resolved Plan: Nurse reported diarrhea. -C diff stool PCR negative (8) Type 2 diabetes mellitus ICD Codes: E11.9 - Type 2 diabetes mellitus without complications Status: Chronic Plan: - Switched to Levemir 7AM + 7 PM for hyperglycemia, fingersticks have improved - Continue low dose ISS, goal 140-180 -Glucerna for PEG tube feedings @ 45 ml/hr History: Admitted for DKA which has now resolved. Hemoglobin A1C is 12.9. Diabetes Type I is uncontrolled. 05/22 - 8PM stating pt BG level at 60 and hypoglycemia protocol started Levemir 5AM + 5PM until raised on 05/28 (9) Hypertension ICD Codes: I10 - Essential (primary) hypertension Status: Acute Plan: BPs at goal overnight -Antihypertensives to keep SBP<180 -Lasix or Bumex for diuresis as required (10) Atrial fibrillation ICD Codes: I48.91 - Unspecified atrial fibrillation Status: Resolved Plan: Hx of intermittent Afib. Resolved with administration of Lopressor. -Continue to monitor -Lopressor PRN (11) Hip fracture ICD Codes: S72.009A - Fracture of unspecified part of neck of unspecified femur , initial encounter for closed fracture Status: Resolved Plan: S/P left hip reduction and intramedullary nail fixation on 04-21-17 -Consulted orthopedics-appreciate recs * WBAT * Daily dressing changes -Calcium/Vitamin D -Fluids as above -Tylenol, morphine PRN pain, but it is difficult to tell if she is having pain (12) Fluids, Electrolytes, and Nutrition Status: Acute Plan: Fluids: through PEG tube Electrolyte: on electrolyte protocol Nutrition: Glucerna tube feeds and free water DVT ppx: SCDs/lovenox 40 mg daily CVA ppx: aspirin 325 mg GI ppx: Lansoprazole Colace, fleet enema mineral oil PRN (Tova Ortiz MD R2) Problem Qualifiers (1) UTI (urinary tract infection): Qualified Codes: N39.0 - Urinary tract infection, site not specified (2) Sacral decubitus ulcer: Qualified Codes: L89.151 - Pressure ulcer of sacral region, stage 1 (3) Type 2 diabetes mellitus: Qualified Codes: E11.9 - Type 2 diabetes mellitus without complications (4) Hypertension: Qualified Codes: I10 - Essential (primary) hypertension (5) Atrial fibrillation: Qualified Codes: I48.0 - Paroxysmal atrial fibrillation (6) Hip fracture: Tova Ortiz MD R2 May 31, 2017 11:59 Fazal Zamora MD May 31, 2017 15:52
[2017-06-01] VITALS (18 sets, daily range): BP systolic 108–157; BP diastolic 53–78; PULSE 59–90; RESP 14; TEMP 97–99.7; O2SAT 97–100
[2017-06-01] MEDS: hydrALAZINE HCL 20 MG/ML VIAL IV PUSH PRN (02:22)
[2017-06-01] MEDS: CEFEPIME INJ 1,000 MG in SODIUM CHLORIDE 0.9% INJ 100 ML IV SCH ×2 (04:28→16:30)
[2017-06-01] MEDS: FREE WATER G-TUBE SCH ×3 (06:00→18:22)
[2017-06-01] MEDS: DOCUSATE SODIUM 100 MG/10 ML UDC PO SCH ×2 (09:00→19:25)
[2017-06-01] MEDS: SODIUM CHLORIDE 0.9% FLUSH 5 ML FLUSH IV FLUSH SCH ×2 (09:00→20:55)
[2017-06-01] MEDS: INSULIN ASPART SUPPLEMENTAL SCALE SQ SCH ×4 (09:15→20:56)
[2017-06-01] MEDS: LANSOPRAZOLE SOLUTAB 30 MG TAB NG SCH (09:15)
[2017-06-01] MEDS: LISINOPRIL 10 MG TAB PO SCH ×2 (09:15→22:19)
[2017-06-01] MEDS: BENEPROTEIN POWDER 1 PACK G-TUBE SCH ×3 (09:15→18:22)
[2017-06-01] MEDS: ASPIRIN 325 MG TAB DOBHOFF SCH (09:15)
[2017-06-01] MEDS: CHOLECALCIFEROL (VIT D3) 5000 UNIT CAP PO SCH (09:15)
[2017-06-01] MEDS: CALCIUM/VITAMIN D 250 MG/125 U TAB PO SCH ×3 (09:15→18:22)
[2017-06-01] MEDS: FUROSEMIDE 40 MG/5 ML UNIT DOSE CUP NG SCH (09:15)
[2017-06-01] MEDS: INSULIN DETEMIR 100 UNITS/ML VIAL SQ SCH ×2 (09:16→20:55)
--- NOTE | 2017-06-01 10:24 | HHI.CCPN ---
Subjective Remarks/Hospital Course Note for 05/30/17: 04/24: 76-year-old female with a medical history significant for prior stroke, diabetes mellitus who was admitted with DKA and a hip fracture for which she underwent ORIF on 04/21. Patient developed altered mental status and was last noted to be okay around 5:30 AM. Subsequently there was a change in her mental status and she was noted to not be moving her right side for which stroke alert was called. Head CT showed large left MCA territory ischemic infarct with edema. Patient was transferred to the ICU by family medicine service in the critical care consult was requested. I evaluated the patient following arrival to the ICU. At that time she was laying in bed with her eyes open however not following commands and had a dense right hemiplegia. Patient was also evaluated by Dr. Malave from neurology. I further discussed current event with patient's daughter following her arrival to the ICU. Per the daughter patient has been living with her since her stroke in 2014 and does ambulate however has been having problems with memory and incontinence as well as gait difficulties. She does not feel patient would want intubation or tracheostomy or PEG tube. 04/25: Patient remains encephalopathic, awake though not following commands consistently. Dense right hemiplegia persists. Appears to be awake enough to protect airway currently. Patient's daughter rescinded DNR and made a full code last evening. 04/26: Remains encephalopathic, not following commands. On Dobbhoff for tube feeds at 30 cc per hour. Had urinary retention and drained 2 L of urine after placing Moser catheter today. CT head done this morning with large left MCA territory infarct with left to right midline shift and significant cerebral edema. Hyperglycemia noted. Patient given mannitol earlier for increasing cerebral edema. 04/27: Remains encephalopathic, not following commands. On Dobbhoff tube feeds at 30 cc per hour. When into A. fib with RVR last night which responded with Lopressor 5 mg IV 1 dose. 04/28: Remains encephalopathic, arousable, not following commands. Moves left upper extremity spontaneously. Tolerating Dobbhoff tube feeds. Remains on nasal cannula. 04/29: Encephalopathic, eyes be arousable, moves left upper extremity spontaneously and occasionally opens eyes. Dense right hemiplegia and aphasia persists. On nasal cannula. Dobbhoff tube feeds being advanced. Patient was transfused 1 unit PRBCs yesterday. Urine culture with yeast from yesterday for which fluconazole being started. Had brief run of A. fib with RVR which improved with Lopressor IV, currently in sinus rhythm. 04/30: Worsening hypoxemic respiratory failure, currently on partial nonrebreather. Remains lethargic. WBC count increased from 14.6 today 20.7. Chest x-ray shows bilateral worsening infiltrates and small pleural effusions. Sodium 154, weight up by 8 KG. Albumin 1 mg Bumex 1. Also one dose of albumin. Remains in sinus tachycardia. Tmax 101.3 05/01: Patient was intubated yesterday for lack of airway protection, and severe hypoxemic respiratory failure from aspiration pneumonia involving multiple lobes. Patient is on the vent lethargic, no spontaneous eye opening. Chest x- ray remains unchanged. Remains intermittently febrile Tmax 101.3. WBC count improving 05/02: Remains critically ill with no improvement in mental status. Spiking fever of 101.7. Blood culture and sputum culture with staph aureus sputum also growing GNR, WBC count 22,000 now indicating worsening sepsis. Daughter still requesting aggressive care. Palliative care is following 05/03: S/P large area dominant hemisphere CVA. No neurological improvement. Now with pneumonia (infiltrate, fever, leukocytosis) and appropriate abx coverage. She will have a hard time surviving the hip fx, CVA, and pneumonia. Palliative Care needs to be a mainstay of our plan. 05/04: No improvement in neuro status. Sputum C&S allows us to narrow abx coverage to levaquin alone. Lungs remain quite congested. Enteral nutrition tolerated. 05/05: No improvement in neuro status. Moves left arm spontaneously. Flaccid right side. Unresponsive. Persistent mild hypoglycemia - will cut Levemir 50%. Abdomen more distended, check KUB. 05/06: CT head with massive left MCA infarction and > 1 cm shift in right handed woman. She opens eyes, does not track. 05/07: Patient open eyes. Attempts to respond. [place]er speaking. Tolerating tube feeds. Positive bowel movement. Volume overloaded. 05/08: Tmax 99.4. Potassium being replaced. Ultrasound gallbladder currently pending. Transaminases are trending downward. Gently diurese. 05/09: Alk phos decreasing. Remains with good urine output. Neurological status not improving. 05/10: Fixed neuro deficit unchanged. Profound CVA. 05/11: Appears to track with eyes today. No improvement in motor function. Remains very edematous, diuretics doubled. 05/12: Continued thick secretions. Afebrile, leukocytosis resolved. 05/13: CT head with completed left MCA stroke, persistent edema and 5 mm shift away. Does not last long on SBTs - major decision now is trach/PEG. 05/14: Daughter has decided to proceed with trach and PEG. I have been pessimistic with her about chances for a meaningful recovery. 05/15: Plan for trach today. No change in neuro status. Still ventilator dependent. 05/16: Trach completed. Await PEG and disposition. 05/17: PEG placed 05/16. Start TFs today after nutrition consult. Work to place patient. 05/18: No improvement. Does open eyes, no focus or tracking. Completed large dominant (left) hemisphere CVA in right handed woman with severe deficit. Medicaid pending status, [employer] is following. 05/19: no improvements in neuro exam. ready for LTAC. will d/c moser and rectal tubes. 05/20: no changes or improvements. very difficult placement due to patient not [place] citizen. 05/21: no improvements. resting on vent overnight due to distress. 05/22: no neurologic changes. no improvements. attempted T-piece which failed after 10 minutes. 05/23: no improvements. poor prognosis. poor neuro exam. still failing weaning trials. Subjective 05/24: no improvements or changes. still failing t-piece trials. 05/25: No acute changes of improvement overnight. Failed CPAP due to apnea, tried again currently tolerating. Neurological exam unchanged. 05/26: No improvement in neurological function. 05/27: Patient has required Moser catheter because of breakdown of skin on upper thighs and groin. Urine has become infected, will treat. 05/28: Some drainage from around trach (placed 2 weeks ago). Will change out trach tube and inspect neck wound. I&O straight cath q6h order entered 05/17. 05/29: No improvement, remains obtunded. Failed CPAP trials yesterday and again today due to apnea. Moser placed due to persistent urinary retention 05/30: Obtunded, unresponsive. Failed SBTs, remains ventilator dependent. 05/31: Patient continues to fail SBT failed yesterday due to apnea. Neuro exam remains unchanged. 06/01: No acute changes overnight, Objective Vital Signs Date Time Temp Pulse Resp B/P (MAP) Pulse Ox O2 Delivery O2 Flow Rate FiO2 06/01/17 09:02 40 06/01/17 08:55 98 06/01/17 08:00 97.0 84 14 147/78 (101) 06/01/17 07:00 Mechanical Ventilator Trach Collar 05/29/17 07:38 6.00 Intake and Output 06/01/17 06/01/17 06/02/17 08:00 16:00 00:00 Intake Total 1139 ml Output Total 500 ml Balance 639 ml Result Diagram: 05/30/17 0313 05/31/17 0452 Other Results Microbiology Date/Time Source Procedure Growth Status 05/29/17 17:15 Stool Stool Stool Occult Blood (JEFFREY) - Final HEMOCCULT NEGATIVE Complete Imaging Last Impressions Chest X-Ray 05/07/17 0400 Signed Impressions: Service Date/Time: Sunday, May 07, 2017 04:38 - CONCLUSION: 1. Stable Low-lying ETT with tip approximately 1 cm above the valerie. 2. Mild interval progression of bilateral airspace consolidation exaggerated by patient rotation. 3. Increased small left pleural effusion. Alejo De La Vega MD Abdomen/Pelvis CT 05/07/17 0000 Signed Impressions: Service Date/Time: Sunday, May 07, 2017 13:23 - CONCLUSION: 1. Large left pneumothorax. 2. Bilateral lower lobe consolidation and bilateral moderate size pleural effusions. 3. Significant soft tissue thickening of the right lateral chest wall and left gluteus muscle. 4. Mild ascites. The findings were called to Dr. Carney. Deangelo Zamora MD Head CT 05/06/17 0000 Signed Impressions: Service Date/Time: Saturday, May 06, 2017 04:18 - CONCLUSION: 1. Evolving large left-sided MCA territory infarct with minimally improved [id number] subfalcine shift. 2. No intercurrent hemorrhage or other acute abnormality. Alejo De La Vega MD Abdomen X-Ray 05/06/17 0000 Signed Impressions: Service Date/Time: Saturday, May 06, 2017 17:42 - CONCLUSION: Dobbhoff feeding tube tip near the gastroduodenal junction. Obdulio Simms MD Hip and Pelvis X-Ray 05/05/17 0000 Signed Impressions: Service Date/Time: Friday, May 05, 2017 10:59 - CONCLUSION: Left proximal femur trochanteric/subtrochanteric fracture lucency visualized. Postoperative changes. Choco Mustafa MD Chest CT 04/30/17 0000 Signed Impressions: Service Date/Time: Sunday, April 30, 2017 09:20 - CONCLUSION: 1. Bilateral pulmonary infiltrates more pronounced within the lower lobes with tiny bilateral pleural effusions. Material seen filling the lower lobe bronchi bilaterally either related to purulent material or perhaps mucus plugging. Deangelo Wren Jr., MD Carotid Artery Ultrasound 04/24/17 0000 Signed Impressions: Service Date/Time: April 09:45 - CONCLUSION: 1. No hemodynamically significant carotid artery stenosis. Arnie Middleton MD Hip X-Ray 04/21/17 0000 Signed Impressions: Service Date/Time: Friday, April 21, 2017 11:36 - CONCLUSION: Fluoroscopic images during placement of intramedullary siomara left femur. Benja Ramsey MD Objective Remarks Gen: 76-year-old female, unresponsive. HEENT: mucous membranes moist. Neck: Trached. site clean and dry. Resp: unlabored. on ventilator. Cardiovascular: RRR. No murmurs, no JVD. GI/abdomen: Distended. Nontender. BS active, no guarding. Extremities: Warm bilaterally, edema lowers. Incision sites over left hip, site clean dry and intact. Skin: Breakdown of skin on medial aspect of both thighs. Irritated by urine. Neuro: On no sedation. Grimaces spontaneously, no eye opening. Dense right hemiplegia. Withdraws left upper extremity, Withdraws LLE. No change. Pupils 2 mm, react. A/P Assessment and Plan Neuro/Psych: Left MCA CVA - 12 mm of [id number] subfalcine herniation - right-sided hemiplegia Acute encephalopathy History CVA Follow neuro status closely. Continue Aspirin 325 mg by mouth daily. Patient was not a candidate for thrombolysis per discussion with neurology and radiology. Repeat head CT 05/05 showed slight improvement in the midline shift and mass effect Neurosurgery consulted 04/30- Dr. López, recommended conservative management Neurology following - Dr. Malave Cardiovascular: Hypertension As needed Antihypertensives to keep systolic blood pressure less than to 160 mmHg (when necessary IV labetalol and IV hydralazine) Started lisinopril 10 mg twice a day 05/31/17, with improved control now Echocardiogram 04/24 - EF 50 to 55%. Mild concentric LVH. Pulmonary: Acute hypoxic respiratory failure - aspiration possible HCAP Large left pneumothorax status post #10 Danish chest tube 05/07 Ventilator bundle. Ipratropium/albuterol aerosols every 6 hours with albuterol aerosols every 2 hours Chest tube d/c'd 05/12 Daily SBTs. failing for apnea. will continue trials daily. TP if CPAP tolerated GI/liver: Elevated transaminases Hypoalbuminemia Moderate to severe protein calorie malnutrition Continue PEG tube feeding with Glucerna 1.5 goal 45 cc an hour Lansoprazole 30 mg daily for GI regimen Docusate sodium 100 twice a day, Senokot 8.6 twice a day, polyethylene glycol 17 grams twice a day and lactulose 30 cc [address] abdomen/pelvis 05/07 - mild ascites. Large left hemothorax. Right greater than left pleural effusion. Endocrine: Diabetes mellitus Detemir 8 units subcutaneous daily. SSI high dose q4h. Holding glimepiride 4 mg by mouth daily /Renal/FEN: Hypokalemia Strict intake output, monitor and replete electrolytes, follow BUN/creatinine. Moser catheter placed for urinary retention on 04/26. Moser removed 05/19 with q6h straight cath. Moser replaced again due to persistent urinary retention. 05/31/17 Heme: Chronic Rivaroxaban use Leukocytosis Normocytic anemia Thrombocytosis Follow CBC and coags. On subcutaneous enoxaparin Hemoglobin currently stable. No indications for transfusion of blood proximally at this time ID: MSSA bacteremia Serratia/staph aureus pneumonia C glabrata UTI Citrobacter UTI Pertinent cultures Urine culture 04/26/17 sofie glabrata Blood culture 04/29/17 1 out of 4 bottles staph aureus Sputum culture 04/30/17 staph aureus and Serratia. Blood cultures 2, sputum 1 and urine 05/08 pending -> Serratia, treated. Urine 05/26: Citrobacter Ceftriaxone started 05/26, changed to Cefepime 05/27 based on sensitivity, stop date 06/03/17 MSK: Left Intertroch Hip Fx s/p IMN Vitamin D deficiency Prophylaxis: SCDs. Enoxaparin 40 mg sq daily-cleared by Dr. Malave GI - lansoprazole Overall impression: Severe dominant hemisphere CVA. No improvement. Poor prognosis. Very difficult wean given age, comorbidities and deconditioning. PEG placed. No change in neuro status. Medicaid pending for placement. Unable to place and little hope for any significant recovery. Medications adjusted new medication started for uncontrolled blood pressure, now with better control of BP Level 2 Meg Mak MD Jun 01, 2017 10:24
--- NOTE | 2017-06-01 11:21 | HHI.FPPN ---
Objective Vitals Vital Signs Date Time Temp Pulse Resp B/P (MAP) Pulse Ox O2 Delivery O2 Flow Rate FiO2 06/01/17 09:02 40 06/01/17 08:55 98 40 06/01/17 08:00 40 06/01/17 08:00 97.0 84 14 147/78 (101) 97 06/01/17 07:00 100 Mechanical Ventilator 40 Trach Collar 06/01/17 06:00 89 06/01/17 04:10 98 40 06/01/17 04:00 99.1 90 14 137/64 (88) 100 06/01/17 04:00 40 06/01/17 04:00 90 06/01/17 02:00 61 06/01/17 00:00 59 06/01/17 00:00 40 06/01/17 00:00 98.5 59 14 157/70 (99) 100 05/31/17 23:28 100 40 05/31/17 22:00 56 05/31/17 20:10 100 40 05/31/17 20:00 40 05/31/17 20:00 98.5 63 14 153/70 (97) 100 05/31/17 20:00 63 05/31/17 19:00 100 Mechanical Ventilator 40 Trach Collar 05/31/17 18:00 68 05/31/17 16:56 100 40 05/31/17 16:00 68 05/31/17 16:00 40 05/31/17 16:00 97.9 68 14 118/58 (78) 98 05/31/17 14:00 63 05/31/17 12:00 59 05/31/17 12:00 97.7 59 14 153/72 (99) 98 05/31/17 12:00 40 05/31/17 11:44 99 40 I/O 05/31/17 05/31/17 05/31/17 06/01/17 06/01/17 06/01/17 07:00 15:00 23:00 07:00 15:00 23:00 Intake Total 1138 ml 1175 ml 1139 ml Output Total 800 ml 1125 ml 500 ml Balance 338 ml 50 ml 639 ml IV Total 100 ml 100 ml Tube Feeding 438 ml 475 ml 439 ml Other 600 ml 700 ml 600 ml Output Urine Total 800 ml 1125 ml 500 ml # Bowel Movements 1 1 1 Result Diagram: 05/30/17 0313 05/31/17 0452 Objective Remarks CONSTITUTIONAL/GEN: Nonverbal, lying in bed with tracheostomy and PEG tubes in place. Patient's eyes still are closed today, still unarousable with touch or speech. She did not open her eyes to prompt. HEAD: Normocephalic. Atraumatic. Right side facial droop LUNGS: On vent with CPAP trials. Coarse breath sounds bilaterally but moving air well CARDIOVASCULAR: Regular rate and rhythm. Positive pitting edema 2+ of upper extremities bilaterally including the hands, No pitting edema of legs or of feet bilaterally (improved from prior exams). GI/ABD: hypoactive BS w/o guarding or rebound. no grimacing with palpation. Glucerna 1.5 tube feed @ 45ml/hr. 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 Moves left UE and LE spontaneously and intermittently. MUSC: SCDs on bilateral lower extremities. Pedal pulses present. SKIN: Sacral pressure ulcer extends from anus to coccyx. Procedures ORIF 04/21/17 Intubation 04/30/17 A/P Assessment and Plan 76 y/o female with HTN, DM, CVA admitted for DKA and hip fracture. Sadly, patients with hip fractures have other problems and have a high chance of fatal conditions near the time of their fractures. Hip fractures are often a marker for other frailty. Now with massive left MCA stroke, right hemiplegia and midline shift resolving. Neurology and manager cosmetics consulted. Poor prognosis per neurology. Working with palliative care and daughter for goals of care. Now treating for UTI and attempting to wean off vent. Discharge Planning Pending stroke progression and discussion for goals of care She has no Insurance. Medicaid was applied for and she cannot have this as she is not a [place] citizen and has not lived in the [place] long enough. She cannot go to a vent facility nor a SNF without insurance. Case management explained that to her daughter. Per her daughter, she continues to believe she will improve back to her norm at some point and wants to keep her with aggressive measures. She is looking for rehab as she believes her mother can improve. Problem List: (1) Anemia ICD Codes: D64.9 - Anemia, unspecified Status: Chronic Plan: s/p 1u of PRBC on 05/29/17. Hgb stable since then. Hemoccult negative. - monitor H&H (2) UTI (urinary tract infection) ICD Codes: N39.0 - Urinary tract infection, site not specified Status: Acute Plan: -cefepime 1 g every 12 hours (05/27 start, Day #57) History: -05/25 Nurse reported malodorous urine; patient had required straight cath's q6h for the previous 5 days. Leavitt ordered. -UA: + leuk est, + nitrate, + WBC - Continue Leavitt cath - Urine culture grew Citrobacter freundii resistant to ceftriaxone - Rocephin 1g IV q24h (05/26 - 05/27) changed to cefepime (given low JEFFREY <2). Plan for cefepime 1 g every 12 hours for 7 to 10 days. (05/27 - present) (3) Urinary retention ICD Codes: R33.9 - Retention of urine, unspecified Plan: -intermittent cath's q6h (4) Acute CVA (cerebrovascular accident) ICD Codes: I63.9 - Cerebral infarction, unspecified Status: Acute Plan: -Consulted manager cosmetics, appreciate recs: s/p Tracheostomy 05/15 and PEG tube insertion 05/16 with poor prognosis -wean off vent as tolerated -Neurosurgery consulted -Recommended conservative management -Commercial Management Accountant consulted and appreciated: -Tube feeds: Glucerna 1.5 tube feed @ 45ml/hr 24 hours a day for diet via PEG tube -maintenance fluid through PEG tube: free water 300cc q6h as she needs maintenance fluid of about 95 ml/hr -Physical therapy consulted and appreciated -Consulted palliative care-appreciate recs. appreciate help in talking to her daughter -Daughter continues to want aggressive care. Wishes to continue aggressive medical treatment despite prognosis -Neurology consulted-appreciate recs: Poor prognosis -Rectal ASA -Lovenox 40mg daily History and imaging: Patient found minimally responsive with neurological deficits around 0820 04/24. Stat CT of head was ordered, which showed large left MCA infarct. Diffuse edema throughout the left MCA distribution, suggested completed infarct. This was discussed and was not a candidate for intracranial intervention. CT (04/30): Reduction in midline shift to 11mm. Unchanged large left MCA infarction. CT head (05/06) shows: Evolving large left-sided MCA territory infarct with minimally improved [id number] subfalcine shift. No intercurrent hemorrhage or other acute abnormality. Echocardiogram- The left ventricular systolic function is low normal with an estimated ejection fraction in the range of 50-55%. Mild concentric left ventricular hypertrophy. Normal left ventricular size. Qgyrp-bn-[id number] mitral valve regurgitation. Carotid Artery US- No hemodynamically significant carotid stenosis (5) On mechanically assisted ventilation ICD Codes: Z99.11 - Dependence on respirator [ventilator] status Plan: Impression: s/p trach procedure 05/15. This morning he had difficulty tolerating CPAP and was placed back on vent. -Continue weaning trials as tolerated (6) Sacral decubitus ulcer ICD Codes: L89.159 - Pressure ulcer of sacral region, unspecified stage Plan: Patient with small sacral decubitus ulcer over the coccyx. -Wound care consult appreciated: 1. Please cleanse buttock, coccyx, and sacral areas gently with soap and water and apply thick layer of Calazime barrier cream BID and PRN and leave wound open to air for now. 2. Order pressure relieving support surface mattress or bed such as [employer] airapy or K-4 bed from [employer]. 3. Continue to turn patient every 2 hours or PRN for comfort. 4. Please do not put thick cloth underpads under patient for turning purposes. Please use flat turn sheet and ultra sorb pads for incontinence management. (7) Diarrhea ICD Codes: R19.7 - Diarrhea, unspecified Status: Resolved Plan: Nurse reported diarrhea. -C diff stool PCR negative (8) Type 2 diabetes mellitus ICD Codes: E11.9 - Type 2 diabetes mellitus without complications Status: Chronic Plan: - Switched to Levemir 7AM + 7 PM for hyperglycemia, fingersticks have improved - Continue low dose ISS, goal 140-180 -Glucerna for PEG tube feedings @ 45 ml/hr History: Admitted for DKA which has now resolved. Hemoglobin A1C is 12.9. Diabetes Type I is uncontrolled. 05/22 - 8PM stating pt BG level at 60 and hypoglycemia protocol started Levemir 5AM + 5PM until raised on 05/28 (9) Hypertension ICD Codes: I10 - Essential (primary) hypertension Status: Acute Plan: BPs at goal overnight -Antihypertensives to keep SBP<180 -Lasix or Bumex for diuresis as required (10) Atrial fibrillation ICD Codes: I48.91 - Unspecified atrial fibrillation Status: Resolved Plan: Hx of intermittent Afib. Resolved with administration of Lopressor. -Continue to monitor -Lopressor PRN (11) Hip fracture ICD Codes: S72.009A - Fracture of unspecified part of neck of unspecified femur , initial encounter for closed fracture Status: Resolved Plan: S/P left hip reduction and intramedullary nail fixation on 04-21-17 -Consulted orthopedics-appreciate recs * WBAT * Daily dressing changes -Calcium/Vitamin D -Fluids as above -Tylenol, morphine PRN pain, but it is difficult to tell if she is having pain (12) Fluids, Electrolytes, and Nutrition Status: Acute Plan: Fluids: through PEG tube Electrolyte: on electrolyte protocol Nutrition: Glucerna tube feeds and free water DVT ppx: SCDs/lovenox 40 mg daily CVA ppx: aspirin 325 mg GI ppx: Lansoprazole Colace, fleet enema mineral oil PRN Problem Qualifiers (1) UTI (urinary tract infection): Qualified Codes: N39.0 - Urinary tract infection, site not specified (2) Sacral decubitus ulcer: Qualified Codes: L89.151 - Pressure ulcer of sacral region, stage 1 (3) Type 2 diabetes mellitus: Qualified Codes: E11.9 - Type 2 diabetes mellitus without complications (4) Hypertension: Qualified Codes: I10 - Essential (primary) hypertension (5) Atrial fibrillation: Qualified Codes: I48.0 - Paroxysmal atrial fibrillation (6) Hip fracture: Jose R Bennett MD R2 Jun 01, 2017 11:21
--- NOTE | 2017-06-01 12:43 | HHI.FPPN ---
Subjective Remarks Per nurse report, patient has continued to have retained urine despite intermittent catheterizations. With Leavitt insertion, she got out about 900 mL. Thus, Leavitt order has been placed. Patient continues to have liquid stool that is both Hemoccult and C. difficile negative. Patient did not tolerate CPAP trial this morning and became apneic as soon as she was off the vent. Patient is mostly unresponsive this morning. Objective Vitals Vital Signs Date Time Temp Pulse Resp B/P (MAP) Pulse Ox O2 Delivery O2 Flow Rate FiO2 06/01/17 12:19 99 40 06/01/17 12:00 40 06/01/17 12:00 65 06/01/17 12:00 99.7 65 14 120/56 (77) 99 06/01/17 10:00 60 06/01/17 09:02 40 06/01/17 08:55 98 40 06/01/17 08:00 40 06/01/17 08:00 84 06/01/17 08:00 97.0 84 14 147/78 (101) 97 06/01/17 07:00 100 Mechanical Ventilator 40 Trach Collar 06/01/17 06:00 89 06/01/17 04:10 98 40 06/01/17 04:00 99.1 90 14 137/64 (88) 100 06/01/17 04:00 40 06/01/17 04:00 90 06/01/17 02:00 61 06/01/17 00:00 59 06/01/17 00:00 40 06/01/17 00:00 98.5 59 14 157/70 (99) 100 05/31/17 23:28 100 40 05/31/17 22:00 56 05/31/17 20:10 100 40 05/31/17 20:00 40 05/31/17 20:00 98.5 63 14 153/70 (97) 100 05/31/17 20:00 63 05/31/17 19:00 100 Mechanical Ventilator 40 Trach Collar 05/31/17 18:00 68 05/31/17 16:56 100 40 05/31/17 16:00 68 05/31/17 16:00 40 05/31/17 16:00 97.9 68 14 118/58 (78) 98 05/31/17 14:00 63 I/O 9/30/17 905/31/17 06/01/17 06/01/17 06/01/17 07:00 15:00 23:00 07:00 15:00 23:00 Intake Total 1138 ml 1175 ml 1139 ml Output Total 800 ml 1125 ml 500 ml Balance 338 ml 50 ml 639 ml IV Total 100 ml 100 ml Tube Feeding 438 ml 475 ml 439 ml Other 600 ml 700 ml 600 ml Output Urine Total 800 ml 1125 ml 500 ml # Bowel Movements 1 1 1 Result Diagram: 05/30/17 0313 05/31/17 0452 Imaging Last Impressions Head CT 05/15/17 0000 Signed Impressions: Service Date/Time: May 19:59 - CONCLUSION: 1. 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 2. No bleed or new/acute infarct. Obdulio Simms MD Chest X-Ray 05/15/17 0000 Signed Impressions: Service Date/Time: May 12:38 - CONCLUSION: 1. A tracheostomy tube in good position with its tip 2 cm above the valerie. 2. Stable scattered pulmonary infiltrates bilaterally. 3. Dobbhoff feeding tube has its tip in the distal stomach. Enzo Farooq MD Abdomen X-Ray 05/10/17 0000 Signed Impressions: Service Date/Time: Wednesday, May 10, 2017 22:08 - CONCLUSION: Tip of Dobbhoff catheter is in the antrum of the stomach. Sage Adler MD Gall Bladder Ultrasound 05/08/17 0000 Signed Impressions: Service Date/Time: May 08:23 - CONCLUSION: Focally unremarkable appearance of the gallbladder Obdulio Chun MD Abdomen/Pelvis CT 05/07/17 0000 Signed Impressions: Service Date/Time: Sunday, May 07, 2017 13:23 - CONCLUSION: 1. Large left pneumothorax. 2. Bilateral lower lobe consolidation and bilateral moderate size pleural effusions. 3. Significant soft tissue thickening of the right lateral chest wall and left gluteus muscle. 4. Mild ascites. The findings were called to Dr. Carney. Deangelo Zamora MD Hip and Pelvis X-Ray 05/05/17 0000 Signed Impressions: Service Date/Time: Friday, May 05, 2017 10:59 - CONCLUSION: Left proximal femur trochanteric/subtrochanteric fracture lucency visualized. Postoperative changes. Choco Mustafa MD Chest CT 04/30/17 0000 Signed Impressions: Service Date/Time: Sunday, April 30, 2017 09:20 - CONCLUSION: 1. Bilateral pulmonary infiltrates more pronounced within the lower lobes with tiny bilateral pleural effusions. Material seen filling the lower lobe bronchi bilaterally either related to purulent material or perhaps mucus plugging. Deangelo Wren Jr., MD Carotid Artery Ultrasound 04/24/17 0000 Signed Impressions: Service Date/Time: April 09:45 - CONCLUSION: 1. No hemodynamically significant carotid artery stenosis. Arnie Middleton MD Hip X-Ray 04/21/17 0000 Signed Impressions: Service Date/Time: Friday, April 21, 2017 11:36 - CONCLUSION: Fluoroscopic images during placement of intramedullary siomara left femur. Benja Ramsey MD Objective Remarks CONSTITUTIONAL/GEN: Nonverbal, lying in bed with tracheostomy and PEG tubes in place. Patient's eyes still are closed today, still unarousable with touch or speech. She did not open her eyes to prompt. HEAD: Normocephalic. Atraumatic. Right side facial droop LUNGS: On vent with CPAP trials. Coarse breath sounds bilaterally but moving air well CARDIOVASCULAR: Regular rate and rhythm. No pitting edema of arms or legs bilaterally (improved from prior exams). GI/ABD: hyperactive BS w/o guarding or rebound. no grimacing with palpation. Glucerna 1.5 tube feed @ 45ml/hr. 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 Moves left UE and LE spontaneously and intermittently. MUSC: SCDs on bilateral lower extremities. Pedal pulses present. SKIN: Sacral pressure ulcer extends from anus to coccyx. Procedures ORIF 04/21/17 Intubation 04/30/17 A/P Assessment and Plan 76 y/o female with HTN, DM, CVA admitted for DKA and hip fracture. Sadly, patients with hip fractures have other problems and have a high chance of fatal conditions near the time of their fractures. Hip fractures are often a marker for other frailty. Now with massive left MCA stroke, right hemiplegia and midline shift resolving. Neurology and die cleaner consulted. Poor prognosis per neurology. Working with palliative care and daughter for goals of care. Now treating for UTI and attempting to wean off vent. Discharge Planning Pending stroke progression and discussion for goals of care She has no Insurance. Medicaid was applied for and she cannot have this as she is not a [place] citizen and has not lived in the [place] long enough. She cannot go to a vent facility nor a SNF without insurance. Case management explained that to her daughter. Per her daughter, she continues to believe she will improve back to her norm at some point and wants to keep her with aggressive measures. She is looking for rehab as she believes her mother can improve. Problem List: (1) UTI (urinary tract infection) ICD Codes: N39.0 - Urinary tract infection, site not specified Status: Acute Plan: -cefepime 1 g every 12 hours (05/27 start, Day #67) History: - 05/25 Nurse reported malodorous urine; patient had required straight cath's q6h for the previous 5 days. Leavitt ordered. - UA: + leuk est, + nitrate, + WBC - Continue Leavitt cath - Urine culture grew Citrobacter freundii resistant to ceftriaxone - Rocephin 1g IV q24h (05/26 - 05/27) changed to cefepime (given low JEFFREY <2). Plan for cefepime 1 g every 12 hours for 7 to 10 days. (05/27 - present) (2) Anemia ICD Codes: D64.9 - Anemia, unspecified Status: Chronic Plan: s/p 1u of PRBC on 05/29/17. Hgb stable since then. Hemoccult negative. - monitor H&H (3) Urinary retention ICD Codes: R33.9 - Retention of urine, unspecified Plan: -Inserted Leavitt cath because patient was retaining urine with intermittent cath's q6h (4) Acute CVA (cerebrovascular accident) ICD Codes: I63.9 - Cerebral infarction, unspecified Status: Acute Plan: -Consulted die cleaner, appreciate recs: s/p Tracheostomy 05/15 and PEG tube insertion 05/16 with poor prognosis -wean off vent as tolerated -Neurosurgery consulted -Recommended conservative management -Quality Engineer Medical Device consulted and appreciated: -Tube feeds: Glucerna 1.5 tube feed @ 45ml/hr 24 hours a day for diet via PEG tube -maintenance fluid through PEG tube: free water 300cc q6h as she needs maintenance fluid of about 95 ml/hr -Physical therapy consulted and appreciated -Consulted palliative care-appreciate recs. appreciate help in talking to her daughter -Daughter continues to want aggressive care. Wishes to continue aggressive medical treatment despite prognosis -Neurology consulted-appreciate recs: Poor prognosis -Rectal ASA -Lovenox 40mg daily History and imaging: Patient found minimally responsive with neurological deficits around 0820 04/24. Stat CT of head was ordered, which showed large left MCA infarct. Diffuse edema throughout the left MCA distribution, suggested completed infarct. This was discussed and was not a candidate for intracranial intervention. CT (04/30): Reduction in midline shift to 11mm. Unchanged large left MCA infarction. CT head (05/06) shows: Evolving large left-sided MCA territory infarct with minimally improved [id number] subfalcine shift. No intercurrent hemorrhage or other acute abnormality. Echocardiogram- The left ventricular systolic function is low normal with an estimated ejection fraction in the range of 50-55%. Mild concentric left ventricular hypertrophy. Normal left ventricular size. Rezvy-au-qskl mitral valve regurgitation. Carotid Artery US- No hemodynamically significant carotid stenosis (5) On mechanically assisted ventilation ICD Codes: Z99.11 - Dependence on respirator [ventilator] status Plan: Impression: s/p trach procedure 05/15. This morning she did not tolerate CPAP and was placed back on vent. -Continue weaning trials as tolerated (6) Sacral decubitus ulcer ICD Codes: L89.159 - Pressure ulcer of sacral region, unspecified stage Plan: Patient with small sacral decubitus ulcer over the coccyx. -Wound care consult appreciated: 1. Please cleanse buttock, coccyx, and sacral areas gently with soap and water and apply thick layer of Calazime barrier cream BID and PRN and leave wound open to air for now. 2. Order pressure relieving support surface mattress or bed such as hal[place] airapy or K-4 bed from [facility]. 3. Continue to turn patient every 2 hours or PRN for comfort. 4. Please do not put thick cloth underpads under patient for turning purposes. Please use flat turn sheet and ultra sorb pads for incontinence management. (7) Diarrhea ICD Codes: R19.7 - Diarrhea, unspecified Status: Resolved Plan: Nurse reported diarrhea. -C diff stool PCR negative (8) Type 2 diabetes mellitus ICD Codes: E11.9 - Type 2 diabetes mellitus without complications Status: Chronic Plan: - Continue Levemir 7AM + 7 PM for hyperglycemia, fingersticks have improved - Continue low dose SSI, goal 140-180 -Glucerna for PEG tube feedings @ 45 ml/hr History: Admitted for DKA which has now resolved. Hemoglobin A1C is 12.9. Diabetes Type I is uncontrolled. 05/22 - 8PM stating pt BG level at 60 and hypoglycemia protocol started, then Levemir 5AM + 5PM until raised on 05/28 (9) Hypertension ICD Codes: I10 - Essential (primary) hypertension Status: Acute Plan: BPs at goal overnight -Antihypertensives to keep SBP<180 -Lasix or Bumex for diuresis as required (10) Atrial fibrillation ICD Codes: I48.91 - Unspecified atrial fibrillation Status: Resolved Plan: Hx of intermittent Afib. Resolved with administration of Lopressor. -Continue to monitor -Lopressor PRN (11) Hip fracture ICD Codes: S72.009A - Fracture of unspecified part of neck of unspecified femur , initial encounter for closed fracture Status: Resolved Plan: S/P left hip reduction and intramedullary nail fixation on 04-21-17 -Consulted orthopedics-appreciate recs * WBAT * Daily dressing changes -Calcium/Vitamin D -Fluids as above -Tylenol, morphine PRN pain, but it is difficult to tell if she is having pain (12) Fluids, Electrolytes, and Nutrition Status: Acute Plan: Fluids: through PEG tube Electrolyte: on electrolyte protocol Nutrition: Glucerna tube feeds and free water DVT ppx: SCDs/lovenox 40 mg daily CVA ppx: aspirin 325 mg GI ppx: Lansoprazole Colace, fleet enema mineral oil PRN Problem Qualifiers (1) UTI (urinary tract infection): Qualified Codes: N39.0 - Urinary tract infection, site not specified (2) Sacral decubitus ulcer: Qualified Codes: L89.151 - Pressure ulcer of sacral region, stage 1 (3) Type 2 diabetes mellitus: Qualified Codes: E11.9 - Type 2 diabetes mellitus without complications (4) Hypertension: Qualified Codes: I10 - Essential (primary) hypertension (5) Atrial fibrillation: Qualified Codes: I48.0 - Paroxysmal atrial fibrillation (6) Hip fracture: Jose R Bennett MD R2 Jun 01, 2017 12:43
[2017-06-02] VITALS (17 sets, daily range): BP systolic 103–168; BP diastolic 57–74; PULSE 58–101; RESP 14; TEMP 97.5–99; O2SAT 98–100
[2017-06-02] MEDS: hydrALAZINE HCL 20 MG/ML VIAL IV PUSH PRN (01:10)
[2017-06-02] MEDS: METOPROLOL TARTRATE 5 MG/5 ML VIAL IV PUSH PRN (03:21)
[2017-06-02] MEDS: CEFEPIME INJ 1,000 MG in SODIUM CHLORIDE 0.9% INJ 100 ML IV SCH ×2 (03:21→15:46)
[2017-06-02 05:44] LABS: AUTOMATED NEUTROPHIL # 8.1 TH/MM3 (1.8-7.7); BASOPHIL # 0.1 TH/MM3 (0-0.2); BASOPHIL % 1.2 % (0.0-2.0); EOSINOPHIL # 0.2 TH/MM3 (0-0.4); HEMATOCRIT 30.7 % (35.0-46.0); HEMOGLOBIN 9.8 GM/DL (11.6-15.3); LYMPH % 22.3 % (9.0-44.0); LYMPHOCYTE # 2.7 TH/MM3 (1.0-4.8); MEAN CELL VOLUME 92.5 FL (80.0-100.0); MEAN CORPUSCULAR HEMOGLOBIN 29.4 PG (27.0-34.0); MEAN CORPUSCULAR HGB CONC 31.8 % (32.0-36.0); MEAN PLATELET VOLUME 8.8 FL (7.0-11.0); MONO % 6.2 % (0.0-8.0); MONOCYTE # 0.7 TH/MM3 (0-0.9); NEUT % 68.3 % (16.0-70.0); PLATELET COUNT 332 TH/MM3 (150-450); RED BLOOD COUNT 3.32 MIL/MM3 (4.00-5.30); RED CELL DISTRIBUTION WIDTH 17.6 % (11.6-17.2); WHITE BLOOD COUNT 11.9 TH/MM3 (4.0-11.0)
[2017-06-02 05:59] LABS: ALBUMIN 1.7 GM/DL (3.4-5.0); AST (GOT) 50 U/L (15-37); BICARBONATE 27.9 MEQ/L (21.0-32.0); BLOOD UREA NITROGEN 33 MG/DL (7-18); CALCIUM 7.8 MG/DL (8.5-10.1); CHLORIDE 100 MEQ/L (98-107); CREATININE 0.29 MG/DL (0.50-1.00); GLOMERULAR FILTRATION RATE 226 ML/MIN (>89); GLUCOSE,RANDOM 231 MG/DL (74-106); MAGNESIUM 2.1 MG/DL (1.5-2.5); SODIUM (NA) 136 MEQ/L (136-145)
[2017-06-02] MEDS: FREE WATER G-TUBE SCH ×4 (06:00→17:16)
[2017-06-02 06:02] LABS: ALKALINE PHOSPHATASE 845 U/L (45-117); ALT (GPT) 36 U/L (10-53); TOTAL BILIRUBIN ADULT 0.4 MG/DL (0.2-1.0); TOTAL PROTEIN 6.2 GM/DL (6.4-8.2)
--- NOTE | 2017-06-02 07:41 | HHI.CCPN ---
Subjective Remarks/Hospital Course Note for 05/30/17: 04/24: 76-year-old female with a medical history significant for prior stroke, diabetes mellitus who was admitted with DKA and a hip fracture for which she underwent ORIF on 04/21. Patient developed altered mental status and was last noted to be okay around 5:30 AM. Subsequently there was a change in her mental status and she was noted to not be moving her right side for which stroke alert was called. Head CT showed large left MCA territory ischemic infarct with edema. Patient was transferred to the ICU by family medicine service in the critical care consult was requested. I evaluated the patient following arrival to the ICU. At that time she was laying in bed with her eyes open however not following commands and had a dense right hemiplegia. Patient was also evaluated by Dr. Malave from neurology. I further discussed current event with patient's daughter following her arrival to the ICU. Per the daughter patient has been living with her since her stroke in 2014 and does ambulate however has been having problems with memory and incontinence as well as gait difficulties. She does not feel patient would want intubation or tracheostomy or PEG tube. 04/25: Patient remains encephalopathic, awake though not following commands consistently. Dense right hemiplegia persists. Appears to be awake enough to protect airway currently. Patient's daughter rescinded DNR and made a full code last evening. 04/26: Remains encephalopathic, not following commands. On Dobbhoff for tube feeds at 30 cc per hour. Had urinary retention and drained 2 L of urine after placing Moser catheter today. CT head done this morning with large left MCA territory infarct with left to right midline shift and significant cerebral edema. Hyperglycemia noted. Patient given mannitol earlier for increasing cerebral edema. 04/27: Remains encephalopathic, not following commands. On Dobbhoff tube feeds at 30 cc per hour. When into A. fib with RVR last night which responded with Lopressor 5 mg IV 1 dose. 04/28: Remains encephalopathic, arousable, not following commands. Moves left upper extremity spontaneously. Tolerating Dobbhoff tube feeds. Remains on nasal cannula. 04/29: Encephalopathic, eyes be arousable, moves left upper extremity spontaneously and occasionally opens eyes. Dense right hemiplegia and aphasia persists. On nasal cannula. Dobbhoff tube feeds being advanced. Patient was transfused 1 unit PRBCs yesterday. Urine culture with yeast from yesterday for which fluconazole being started. Had brief run of A. fib with RVR which improved with Lopressor IV, currently in sinus rhythm. 04/30: Worsening hypoxemic respiratory failure, currently on partial nonrebreather. Remains lethargic. WBC count increased from 14.6 today 20.7. Chest x-ray shows bilateral worsening infiltrates and small pleural effusions. Sodium 154, weight up by 8 KG. Albumin 1 mg Bumex 1. Also one dose of albumin. Remains in sinus tachycardia. Tmax 101.3 05/01: Patient was intubated yesterday for lack of airway protection, and severe hypoxemic respiratory failure from aspiration pneumonia involving multiple lobes. Patient is on the vent lethargic, no spontaneous eye opening. Chest x- ray remains unchanged. Remains intermittently febrile Tmax 101.3. WBC count improving 05/02: Remains critically ill with no improvement in mental status. Spiking fever of 101.7. Blood culture and sputum culture with staph aureus sputum also growing GNR, WBC count 22,000 now indicating worsening sepsis. Daughter still requesting aggressive care. Palliative care is following 05/03: S/P large area dominant hemisphere CVA. No neurological improvement. Now with pneumonia (infiltrate, fever, leukocytosis) and appropriate abx coverage. She will have a hard time surviving the hip fx, CVA, and pneumonia. Palliative Care needs to be a mainstay of our plan. 05/04: No improvement in neuro status. Sputum C&S allows us to narrow abx coverage to levaquin alone. Lungs remain quite congested. Enteral nutrition tolerated. 05/05: No improvement in neuro status. Moves left arm spontaneously. Flaccid right side. Unresponsive. Persistent mild hypoglycemia - will cut Levemir 50%. Abdomen more distended, check KUB. 05/06: CT head with massive left MCA infarction and > 1 cm shift in right handed woman. She opens eyes, does not track. 05/07: Patient open eyes. Attempts to respond. [place] speaking. Tolerating tube feeds. Positive bowel movement. Volume overloaded. 05/08: Tmax 99.4. Potassium being replaced. Ultrasound gallbladder currently pending. Transaminases are trending downward. Gently diurese. 05/09: Alk phos decreasing. Remains with good urine output. Neurological status not improving. 05/10: Fixed neuro deficit unchanged. Profound CVA. 05/11: Appears to track with eyes today. No improvement in motor function. Remains very edematous, diuretics doubled. 05/12: Continued thick secretions. Afebrile, leukocytosis resolved. 05/13: CT head with completed left MCA stroke, persistent edema and 5 mm shift away. Does not last long on SBTs - major decision now is trach/PEG. 05/14: Daughter has decided to proceed with trach and PEG. I have been pessimistic with her about chances for a meaningful recovery. 05/15: Plan for trach today. No change in neuro status. Still ventilator dependent. 05/16: Trach completed. Await PEG and disposition. 05/17: PEG placed 05/16. Start TFs today after nutrition consult. Work to place patient. 05/18: No improvement. Does open eyes, no focus or tracking. Completed large dominant (left) hemisphere CVA in right handed woman with severe deficit. Medicaid pending status, [employer] is following. 05/19: no improvements in neuro exam. ready for LTAC. will d/c moser and rectal tubes. 05/20: no changes or improvements. very difficult placement due to patient not [place] citizen. 05/21: no improvements. resting on vent overnight due to distress. 05/22: no neurologic changes. no improvements. attempted T-piece which failed after 10 minutes. 05/23: no improvements. poor prognosis. poor neuro exam. still failing weaning trials. 05/24: no improvements or changes. still failing t-piece trials. 05/25: No acute changes of improvement overnight. Failed CPAP due to apnea, tried again currently tolerating. Neurological exam unchanged. 05/26: No improvement in neurological function. 05/27: Patient has required Moser catheter because of breakdown of skin on upper thighs and groin. Urine has become infected, will treat. 05/28: Some drainage from around trach (placed 2 weeks ago). Will change out trach tube and inspect neck wound. I&O straight cath q6h order entered 05/17. 05/29: No improvement, remains obtunded. Failed CPAP trials yesterday and again today due to apnea. Moser placed due to persistent urinary retention 05/30: Obtunded, unresponsive. Failed SBTs, remains ventilator dependent. 05/31: Patient continues to fail SBT failed yesterday due to apnea. Neuro exam remains unchanged. 06/01: No acute changes overnight, Subjective 06/02: no changes. ekg done overnight for ? EKG changes seen on telemetry which were not visualized on EKG. Objective Vital Signs Date Time Temp Pulse Resp B/P (MAP) Pulse Ox O2 Delivery O2 Flow Rate FiO2 06/02/17 06:00 75 06/02/17 04:25 99 40 06/02/17 04:00 99.0 14 149/67 (94) 06/01/17 19:00 Mechanical Ventilator Trach Collar 05/29/17 07:38 6.00 Intake and Output 06/02/17 06/02/17 06/03/17 08:00 16:00 00:00 Intake Total 1132 ml Output Total 650 ml Balance 482 ml Result Diagram: 06/02/17 0452 06/02/17 0452 Imaging Last Impressions Chest X-Ray 05/07/17 0400 Signed Impressions: Service Date/Time: Sunday, May 07, 2017 04:38 - CONCLUSION: 1. Stable Low-lying ETT with tip approximately 1 cm above the valerie. 2. Mild interval progression of bilateral airspace consolidation exaggerated by patient rotation. 3. Increased small left pleural effusion. Alejo De La Vega MD Abdomen/Pelvis CT 05/07/17 0000 Signed Impressions: Service Date/Time: Sunday, May 07, 2017 13:23 - CONCLUSION: 1. Large left pneumothorax. 2. Bilateral lower lobe consolidation and bilateral moderate size pleural effusions. 3. Significant soft tissue thickening of the right lateral chest wall and left gluteus muscle. 4. Mild ascites. The findings were called to Dr. Carney. Deangelo Zamora MD Head CT 05/06/17 0000 Signed Impressions: Service Date/Time: Saturday, May 06, 2017 04:18 - CONCLUSION: 1. Evolving large left-sided MCA territory infarct with minimally improved citu-zn-eduag subfalcine shift. 2. No intercurrent hemorrhage or other acute abnormality. Alejo De La Vega MD Abdomen X-Ray 05/06/17 0000 Signed Impressions: Service Date/Time: Saturday, May 06, 2017 17:42 - CONCLUSION: Dobbhoff feeding tube tip near the gastroduodenal junction. Obdulio Simms MD Hip and Pelvis X-Ray 05/05/17 0000 Signed Impressions: Service Date/Time: Friday, May 05, 2017 10:59 - CONCLUSION: Left proximal femur trochanteric/subtrochanteric fracture lucency visualized. Postoperative changes. Choco Mustafa MD Chest CT 04/30/17 0000 Signed Impressions: Service Date/Time: Sunday, April 30, 2017 09:20 - CONCLUSION: 1. Bilateral pulmonary infiltrates more pronounced within the lower lobes with tiny bilateral pleural effusions. Material seen filling the lower lobe bronchi bilaterally either related to purulent material or perhaps mucus plugging. Deangelo Wren Jr., MD Carotid Artery Ultrasound 04/24/17 0000 Signed Impressions: Service Date/Time: April 09:45 - CONCLUSION: 1. No hemodynamically significant carotid artery stenosis. Arnie Middleton MD Hip X-Ray 04/21/17 0000 Signed Impressions: Service Date/Time: Friday, April 21, 2017 11:36 - CONCLUSION: Fluoroscopic images during placement of intramedullary siomara left femur. Benja Ramsey MD Objective Remarks Gen: 76-year-old female, unresponsive. HEENT: mucous membranes moist. Neck: Trached. site clean and dry. Resp: unlabored. on ventilator. Cardiovascular: RRR. No murmurs, no JVD. GI/abdomen: Distended. Nontender. no guarding. Extremities: Warm bilaterally, edema lowers. Incision sites over left hip, site clean dry and intact. Neuro: On no sedation. Grimaces spontaneously, no eye opening. Dense right hemiplegia. Withdraws left upper extremity, Withdraws LLE. No change. Pupils 2 mm, react. A/P Assessment and Plan Neuro/Psych: Left MCA CVA - 12 mm of posg-xo-czfvx subfalcine herniation - right-sided hemiplegia Acute encephalopathy History CVA Follow neuro status closely. Continue Aspirin 325 mg by mouth daily. Patient was not a candidate for thrombolysis per discussion with neurology and radiology. Repeat head CT 05/05 showed slight improvement in the midline shift and mass effect Neurosurgery consulted 04/30- Dr. López, recommended conservative management Neurology following - Dr. Malave Cardiovascular: Hypertension As needed Antihypertensives to keep systolic blood pressure less than to 160 mmHg (when necessary IV labetalol and IV hydralazine) Started lisinopril 10 mg twice a day 05/31/17, with improved control now Echocardiogram 04/24 - EF 50 to 55%. Mild concentric LVH. Pulmonary: Acute hypoxic respiratory failure - aspiration possible HCAP Large left pneumothorax status post #10 [place] chest tube 05/07 Ventilator bundle. Ipratropium/albuterol aerosols every 6 hours with albuterol aerosols every 2 hours Chest tube d/c'd 05/12 Daily SBTs. failing for apnea. will continue trials daily. GI/liver: Elevated transaminases Hypoalbuminemia Moderate to severe protein calorie malnutrition Continue PEG tube feeding with Glucerna 1.5 goal 45 cc an hour Lansoprazole 30 mg daily for GI regimen Docusate sodium 100 twice a day, Senokot 8.6 twice a day, polyethylene glycol 17 grams twice a day and lactulose 30 cc [address] abdomen/pelvis 05/07 - mild ascites. Large left hemothorax. Right greater than left pleural effusion. Endocrine: Diabetes mellitus Detemir 8 units subcutaneous daily. SSI high dose q4h. Holding glimepiride 4 mg by mouth daily /Renal/FEN: Hypokalemia Strict intake output, monitor and replete electrolytes, follow BUN/creatinine. Moser catheter placed for urinary retention on 04/26. Moser removed 05/19 with q6h straight cath. Moser replaced again due to persistent urinary retention. 05/31/17 Heme: Chronic Rivaroxaban use Leukocytosis Normocytic anemia Thrombocytosis Follow CBC and coags. On subcutaneous enoxaparin Hemoglobin currently stable. No indications for transfusion of blood proximally at this time ID: MSSA bacteremia Serratia/staph aureus pneumonia C glabrata UTI Citrobacter UTI Pertinent cultures Urine culture 04/26/17 sofie glabrata Blood culture 04/29/17 1 out of 4 bottles staph aureus Sputum culture 04/30/17 staph aureus and Serratia. Blood cultures 2, sputum 1 and urine 05/08 pending -> Serratia, treated. Urine 05/26: Citrobacter Ceftriaxone started 05/26, changed to Cefepime 05/27 based on sensitivity, stop date 06/03/17 MSK: Left Intertroch Hip Fx s/p IMN Vitamin D deficiency Prophylaxis: SCDs. Enoxaparin 40 mg sq daily-cleared by Dr. Malave. GI - lansoprazole Overall impression: Severe dominant hemisphere CVA. No improvement. Poor prognosis. Very difficult wean given age, comorbidities and deconditioning. PEG placed. No change in neuro status. Medicaid pending for placement. Unable to place and little hope for any significant recovery. Anuj Heaton MD Jun 02, 2017 07:41
[2017-06-02 08:14] LABS: BANDS 11 % (0-6); LYMPHOCYTES 15 % (9-44); METAMYELOCYTES 1 % (0-1); MONOCYTES 4 % (0-8); MYELOCYTES 3 % (0-0); NEUTROPHIL # MANUAL DIFF 9.3 TH/MM3 (1.8-7.7); POLYS (SEG NEUTROPHILS) 63 % (16-70)
[2017-06-02] MEDS: DOCUSATE SODIUM 100 MG/10 ML UDC PO SCH ×2 (09:00→20:00)
[2017-06-02] MEDS: CALCIUM/VITAMIN D 250 MG/125 U TAB PO SCH ×3 (09:02→17:15)
[2017-06-02] MEDS: BENEPROTEIN POWDER 1 PACK G-TUBE SCH ×3 (09:02→17:15)
[2017-06-02] MEDS: ENOXAPARIN SODIUM 40 MG/0.4 ML SYRINGE SQ SCH (09:02)
[2017-06-02] MEDS: FUROSEMIDE 40 MG/5 ML UNIT DOSE CUP NG SCH (09:02)
[2017-06-02] MEDS: ASPIRIN 325 MG TAB DOBHOFF SCH (09:02)
[2017-06-02] MEDS: SODIUM CHLORIDE 0.9% FLUSH 5 ML FLUSH IV FLUSH SCH ×2 (09:02→20:38)
[2017-06-02] MEDS: LISINOPRIL 10 MG TAB PO SCH ×2 (09:02→20:31)
[2017-06-02] MEDS: LANSOPRAZOLE SOLUTAB 30 MG TAB NG SCH (09:02)
[2017-06-02] MEDS: CHOLECALCIFEROL (VIT D3) 5000 UNIT CAP PO SCH (09:02)
[2017-06-02] MEDS: INSULIN DETEMIR 100 UNITS/ML VIAL SQ SCH ×2 (09:03→20:44)
[2017-06-02] MEDS: INSULIN ASPART SUPPLEMENTAL SCALE SQ SCH ×4 (09:03→20:44)
--- NOTE | 2017-06-02 09:18 | HHI.FPPN ---
Subjective Remarks Patient seen and examined this a.m. Patient remains on arousable to stimuli. Patient's eyes are closed and she is sleeping upon exam. Patient does respond to touch or verbal stimuli. Per nursing; no acute events overnight. Objective Vitals Vital Signs Date Time Temp Pulse Resp B/P (MAP) Pulse Ox O2 Delivery O2 Flow Rate FiO2 06/02/17 07:53 99 40 06/02/17 06:00 75 06/02/17 04:25 99 40 06/02/17 04:00 40 06/02/17 04:00 78 06/02/17 04:00 99.0 78 14 149/67 (94) 99 06/02/17 02:00 101 06/02/17 00:00 40 06/02/17 00:00 98.5 68 14 160/74 (102) 100 06/02/17 00:00 68 06/01/17 23:35 100 40 06/01/17 22:00 60 06/01/17 20:49 100 40 06/01/17 20:00 40 06/01/17 20:00 64 06/01/17 20:00 97.9 64 14 128/60 (82) 99 06/01/17 19:00 100 Mechanical Ventilator 40 Trach Collar 06/01/17 18:00 60 06/01/17 17:09 97 40 06/01/17 16:00 60 06/01/17 16:00 99.6 60 14 108/53 (71) 99 06/01/17 16:00 40 06/01/17 14:00 60 06/01/17 12:19 99 40 06/01/17 12:00 40 06/01/17 12:00 65 06/01/17 12:00 99.7 65 14 120/56 (77) 99 06/01/17 10:00 60 I/O 06/01/17 06/01/17 06/01/17 06/02/17 06/02/17 06/02/17 07:00 15:00 23:00 07:00 15:00 23:00 Intake Total 1139 ml 1353 ml 1132 ml Output Total 500 ml 650 ml 650 ml Balance 639 ml 703 ml 482 ml IV Total 100 ml 100 ml 100 ml Tube Feeding 439 ml 553 ml 432 ml Other 600 ml 700 ml 600 ml Output Urine Total 500 ml 650 ml 650 ml # Bowel Movements 1 3 2 Result Diagram: 06/02/1745106/02/17451 Objective Remarks CONSTITUTIONAL/GEN: Nonverbal, lying in bed with tracheostomy and PEG tubes in place. Patient's eyes still are closed today, still unarousable with touch or speech. She did not open her eyes to prompt. HEAD: Normocephalic. Atraumatic. Right side facial droop LUNGS: On vent, has not been tolerating CPAP trials. Coarse breath sounds bilaterally but moving air well CARDIOVASCULAR: Regular rate and rhythm. Pitting edema of hands 1+ bilaterally, Pitting edema of R leg and foot 1+, no pitting edema on L leg and foot ( improvement ). GI/ABD: hyperactive BS w/o guarding or rebound. no grimacing with palpation. Glucerna 1.5 tube feed @ 45ml/hr. 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 Moves left UE and LE spontaneously and intermittently. MUSC: SCDs on bilateral lower extremities. Pedal pulses present. SKIN: Sacral pressure ulcer extends from anus to coccyx. Procedures ORIF 04/21/17 Intubation 04/30/17 A/P Assessment and Plan 76 y/o female with HTN, DM, CVA admitted for DKA and hip fracture. Sadly, patients with hip fractures have other problems and have a high chance of fatal conditions near the time of their fractures. Hip fractures are often a marker for other frailty. Now with massive left MCA stroke, right hemiplegia and midline shift resolving. Neurology and clinical marketing manager consulted. Poor prognosis per neurology. Working with palliative care and daughter for goals of care. Now treating for UTI and attempting to wean off vent. Discharge Planning Pending stroke progression and discussion for goals of care She has no Insurance. Medicaid was applied for and she cannot have this as she is not a [place] citizen and has not lived in the [place] long enough. She cannot go to a vent facility nor a SNF without insurance. Case management explained that to her daughter. Per her daughter, she continues to believe she will improve back to her norm at some point and wants to keep her with aggressive measures. She is looking for rehab as she believes her mother can improve. Problem List: (1) UTI (urinary tract infection) ICD Codes: N39.0 - Urinary tract infection, site not specified Status: Acute Plan: -cefepime 1 g every 12 hours (05/27 start, Day #03/07) History: - 05/25 Nurse reported malodorous urine; patient had required straight cath's q6h for the previous 5 days. Leavitt ordered. - UA: + leuk est, + nitrate, + WBC - Continue Leavitt cath - Urine culture grew Citrobacter freundii resistant to ceftriaxone - Rocephin 1g IV q24h (05/26 - 05/27) changed to cefepime (given low JEFFREY <2). Plan for cefepime 1 g every 12 hours for 7 to 10 days. (05/27 - present) (2) Anemia ICD Codes: D64.9 - Anemia, unspecified Status: Chronic Plan: s/p 1u of PRBC on 05/29/17. Hgb stable since then. Hemoccult negative. - monitor H&H (3) Urinary retention ICD Codes: R33.9 - Retention of urine, unspecified Plan: -Inserted Leavitt cath because patient was retaining urine with intermittent cath's q6h (4) Acute CVA (cerebrovascular accident) ICD Codes: I63.9 - Cerebral infarction, unspecified Status: Acute Plan: -Consulted clinical marketing manager, appreciate recs: s/p Tracheostomy 05/15 and PEG tube insertion 05/16 with poor prognosis -wean off vent as tolerated -Neurosurgery consulted -Recommended conservative management -Compounding And Finishing Supervisor consulted and appreciated: -Tube feeds: Glucerna 1.5 tube feed @ 45ml/hr 24 hours a day for diet via PEG tube -maintenance fluid through PEG tube: free water 300cc q6h as she needs maintenance fluid of about 95 ml/hr -Physical therapy consulted and appreciated -Consulted palliative care-appreciate recs. appreciate help in talking to her daughter -Daughter continues to want aggressive care. Wishes to continue aggressive medical treatment despite prognosis -Neurology consulted-appreciate recs: Poor prognosis -Rectal ASA -Lovenox 40mg daily History and imaging: Patient found minimally responsive with neurological deficits around 0820 04/24. Stat CT of head was ordered, which showed large left MCA infarct. Diffuse edema throughout the left MCA distribution, suggested completed infarct. This was discussed and was not a candidate for intracranial intervention. CT (04/30): Reduction in midline shift to 11mm. Unchanged large left MCA infarction. CT head (05/06) shows: Evolving large left-sided MCA territory infarct with minimally improved sibe-fz-gzesu subfalcine shift. No intercurrent hemorrhage or other acute abnormality. Echocardiogram- The left ventricular systolic function is low normal with an estimated ejection fraction in the range of 50-55%. Mild concentric left ventricular hypertrophy. Normal left ventricular size. Lrekv-wm-abso mitral valve regurgitation. Carotid Artery US- No hemodynamically significant carotid stenosis (5) On mechanically assisted ventilation ICD Codes: Z99.11 - Dependence on respirator [ventilator] status Plan: Impression: s/p trach procedure 05/15. -Continue weaning trials as tolerated (6) Sacral decubitus ulcer ICD Codes: L89.159 - Pressure ulcer of sacral region, unspecified stage Plan: Patient with small sacral decubitus ulcer over the coccyx. -Wound care consult appreciated: 1. Please cleanse buttock, coccyx, and sacral areas gently with soap and water and apply thick layer of Calazime barrier cream BID and PRN and leave wound open to air for now. 2. Order pressure relieving support surface mattress or bed such as halifGigathlete airapy or K-4 bed from [employer]. 3. Continue to turn patient every 2 hours or PRN for comfort. 4. Please do not put thick cloth underpads under patient for turning purposes. Please use flat turn sheet and ultra sorb pads for incontinence management. (7) Diarrhea ICD Codes: R19.7 - Diarrhea, unspecified Status: Resolved Plan: Nurse reported diarrhea. -C diff stool PCR negative (8) Type 2 diabetes mellitus ICD Codes: E11.9 - Type 2 diabetes mellitus without complications Status: Chronic Plan: - Continue Levemir 7AM + 7 PM for hyperglycemia, fingersticks have improved - Continue low dose SSI, goal 140-180 -Glucerna for PEG tube feedings @ 45 ml/hr History: Admitted for DKA which has now resolved. Hemoglobin A1C is 12.9. Diabetes Type I is uncontrolled. 05/22 - 8PM stating pt BG level at 60 and hypoglycemia protocol started, then Levemir 5AM + 5PM until raised on 05/28 (9) Hypertension ICD Codes: I10 - Essential (primary) hypertension Status: Acute Plan: BPs at goal overnight -Antihypertensives to keep SBP<180 -Lasix or Bumex for diuresis as required (10) Atrial fibrillation ICD Codes: I48.91 - Unspecified atrial fibrillation Status: Resolved Plan: Hx of intermittent Afib. Resolved with administration of Lopressor. -Continue to monitor -Lopressor PRN (11) Hip fracture ICD Codes: S72.009A - Fracture of unspecified part of neck of unspecified femur , initial encounter for closed fracture Status: Resolved Plan: S/P left hip reduction and intramedullary nail fixation on 04-21-17 -Consulted orthopedics-appreciate recs * WBAT * Daily dressing changes -Calcium/Vitamin D -Fluids as above -Tylenol, morphine PRN pain, but it is difficult to tell if she is having pain (12) Fluids, Electrolytes, and Nutrition Status: Acute Plan: Fluids: through PEG tube Electrolyte: on electrolyte protocol Nutrition: Glucerna tube feeds and free water DVT ppx: SCDs/lovenox 40 mg daily CVA ppx: aspirin 325 mg GI ppx: Lansoprazole Colace, fleet enema mineral oil PRN Problem Qualifiers (1) UTI (urinary tract infection): Qualified Codes: N39.0 - Urinary tract infection, site not specified (2) Sacral decubitus ulcer: Qualified Codes: L89.151 - Pressure ulcer of sacral region, stage 1 (3) Type 2 diabetes mellitus: Qualified Codes: E11.9 - Type 2 diabetes mellitus without complications (4) Hypertension: Qualified Codes: I10 - Essential (primary) hypertension (5) Atrial fibrillation: Qualified Codes: I48.0 - Paroxysmal atrial fibrillation (6) Hip fracture: Tova Ortiz MD R2 Jun 02, 2017 09:18
--- NOTE | 2017-06-02 16:30 | HHI.HCPN ---
Reason for visit a. To assist with evaluation and management of symptoms including: Debility and pain. b. To assist medical decision maker(s) with: better understanding of current medical conditions; weighing benefits/burdens of medical treatment options; making medical treatment decisions. . (Ashly Steven) Subjective/Interval History Mrs. Hein is a 76-year-old female with a past medical history of hypertension, diabetes mellitus and CVA who presented to the ED on 04/20/17 via EMS for evaluation of after a fall. Upon ED admission, random glucose 559. Patient underwent Left hip reduction and intramedullary nail fixation on 04/21/17. Clinical course complicated by large left MCA infarct with diffuse edema throughout the left MCA distribution. Neurology, Dr. Malave consulted. Patient not a candidate for intervention, not a candidate for IV TPA. As per neurology "Curran 4Id the prognosis with a stroke of the size is poor". Palliative care consulted for further clarifications of goals of care given poor prognosis. Interval course: Patient remains on ventilator support via tracheostomy, failing CPAP trials. Currently at 40% FiO2. No improvement in neurological status. Patient observed with eyes open, not tracking or following any commands. Patient remains afebrile, stable hemodynamically. Laboratory workup today indicating WBC 11.9, Hgb stable and 9.8, platelet count 332. BUN/ creatinine 33/0.29. Liver enzymes elevated AST 50, ALT 36, alkaline phosphatase 845. Albumin 1.7. Case discussed with Dr. Heaton, bedside RN and rn case management Doris Enriquez. . Family/friend interactions Telephone call to patient's daughter Norma. Left message in voicemail. . (Ashly Steven) Advance Directives Living Will: Never completed Health Care Surrogate: Never completed Durable Power of Claim Technician: Never completed (Ashly Steven) Advance Directive Specifics Health Care Surrogate(s): No advance directives completed. As per [place] statute, healthcare proxy decision making falls to patient's only daughter Norma Salvador. . Documented care wishes: No living will completed. . Significant change in goals: Ongoing goals of care discussion. Patient's daughter has previously verbalized wishing to continue full aggressive management. . (Ashly Steven) Objective Vital Signs Date Time Temp Pulse Resp B/P (MAP) Pulse Ox O2 Delivery O2 Flow Rate FiO2 06/02/17 15:25 99 40 06/02/17 14:00 63 06/02/17 12:29 100 40 06/02/17 12:00 64 06/02/17 12:00 40 06/02/17 12:00 98.4 64 14 118/58 (78) 100 06/02/17 10:00 73 06/02/17 08:00 73 06/02/17 08:00 40 06/02/17 08:00 98.1 70 14 168/72 (104) 100 06/02/17 07:53 99 40 06/02/17 07:00 99 Mechanical Ventilator 40 Trach Collar 06/02/17 06:00 75 06/02/17 04:25 99 40 06/02/17 04:00 40 06/02/17 04:00 78 06/02/17 04:00 99.0 78 14 149/67 (94) 99 06/02/17 02:00 101 06/02/17 00:00 40 06/02/17 00:00 98.5 68 14 160/74 (102) 100 06/02/17 00:00 68 06/01/17 23:35 100 40 06/01/17 22:00 60 06/01/17 20:49 100 40 06/01/17 20:00 40 06/01/17 20:00 64 06/01/17 20:00 97.9 64 14 128/60 (82) 99 06/01/17 19:00 100 Mechanical Ventilator 40 Trach Collar 06/01/17 18:00 60 06/01/17 17:09 97 40 Intake & Output 06/02/17 06/02/17 07:00 19:00 Intake Total 1132 ml Output Total 650 ml Balance 482 ml IV Total 100 ml Tube Feeding 432 ml Other 600 ml Output Urine Total 650 ml # Bowel Movements 2 Physical Exam CONSTITUTIONAL/GENERAL: This is an elderly female resting in bed in no acute distress. TUBES/LINES/DRAINS: PIV's. Tracheostomy, PEG tube, left soft wrist restraint. SKIN: No jaundice, rashes, or lesions. Ecchymoses on upper extremities. Skin temperature appropriate. Not diaphoretic. Surgical incision to left hip, open to air. Right leg with blister on medial aspect. NECK: Trachea midline. Supple. Tracheostomy in place. CARDIOVASCULAR: Regular rate and rhythm. Peripheral pulses symmetric. RESPIRATORY/CHEST: Symmetric, tracheostomy. Coarse breath sounds bilaterally, right more than left. GASTROINTESTINAL: Abdomen soft, round, mildly distended. Bowel sounds present. PEG tube in place. GENITOURINARY: Without palpable bladder distension. Leavitt inserted for skin protection. MUSCULOSKELETAL: Extremities without clubbing, cyanosis. Edema to all 4 extremities. Right hand worse than left hand. NEUROLOGICAL: Withdraws with LUE and LLE. Flaccid to right side. Not sedated. Eyes opening spontaneously, not to command, not focusing. PSYCHIATRIC: Unable to evaluate secondary to clinical condition. . (Ashly Steven) Diagnostic Tests Laboratory Laboratory Tests Test 05/31/17 04:52 06/02/17 04:52 Blood Urea Nitrogen 32 MG/DL (7-18) 33 MG/DL (7-18) Creatinine 0.33 MG/DL (0.50-1.00) 0.29 MG/DL (0.50-1.00) Random Glucose 159 MG/DL (74-106) 231 MG/DL (74-106) Calcium Level 8.0 MG/DL (8.5-10.1) 7.8 MG/DL (8.5-10.1) Sodium Level 138 MEQ/L (136-145) 136 MEQ/L (136-145) Potassium Level 4.4 MEQ/L (3.5-5.1) 4.6 MEQ/L (3.5-5.1) Chloride Level 102 MEQ/L (98-107) 100 MEQ/L (98-107) Carbon Dioxide Level 29.0 MEQ/L (21.0-32.0) 27.9 MEQ/L (21.0-32.0) Anion Gap 7 MEQ/L (5-15) 8 MEQ/L (5-15) Estimat Glomerular Filtration Rate 195 ML/MIN (>89) 226 ML/MIN (>89) White Blood Count 11.9 TH/MM3 (4.0-11.0) Red Blood Count 3.32 MIL/MM3 (4.00-5.30) Hemoglobin 9.8 GM/DL (11.6-15.3) Hematocrit 30.7 % (35.0-46.0) Mean Corpuscular Volume 92.5 FL (80.0-100.0) Mean Corpuscular Hemoglobin 29.4 PG (27.0-34.0) Mean Corpuscular Hemoglobin Concent 31.8 % (32.0-36.0) Red Cell Distribution Width 17.6 % (11.6-17.2) Platelet Count 332 TH/MM3 (150-450) Mean Platelet Volume 8.8 FL (7.0-11.0) Neutrophils (%) (Auto) 68.3 % (16.0-70.0) Lymphocytes (%) (Auto) 22.3 % (9.0-44.0) Monocytes (%) (Auto) 6.2 % (0.0-8.0) Eosinophils (%) (Auto) 2.0 % (0.0-4.0) Basophils (%) (Auto) 1.2 % (0.0-2.0) Neutrophils # (Auto) 8.1 TH/MM3 (1.8-7.7) Lymphocytes # (Auto) 2.7 TH/MM3 (1.0-4.8) Monocytes # (Auto) 0.7 TH/MM3 (0-0.9) Eosinophils # (Auto) 0.2 TH/MM3 (0-0.4) Basophils # (Auto) 0.1 TH/MM3 (0-0.2) CBC Comment AUTO DIFF Differential Total Cells Counted 100 Neutrophils % (Manual) 63 % (16-70) Band Neutrophils % 11 % (0-6) Lymphocytes % 15 % (9-44) Monocytes % 4 % (0-8) Eosinophils % 3 % (0-4) Neutrophils # (Manual) 9.3 TH/MM3 (1.8-7.7) Metamyelocytes 1 % (0-1) Myelocytes 3 % (0-0) Differential Comment FINAL DIFF MANUAL Platelet Estimate NORMAL (NORMAL) Platelet Morphology Comment NORMAL (NORMAL) Total Protein 6.2 GM/DL (6.4-8.2) Albumin 1.7 GM/DL (3.4-5.0) Magnesium Level 2.1 MG/DL (1.5-2.5) Alkaline Phosphatase 845 U/L (45-117) Aspartate Amino Transf (AST/SGOT) 50 U/L (15-37) Alanine Aminotransferase (ALT/SGPT) 36 U/L (10-53) Total Bilirubin 0.4 MG/DL (0.2-1.0) (Ashly Steven) Result Diagram: 06/02/1745106/02/17451 Procedures * 05/16/17 -PEG tube placement * 05/15/17 -tracheostomy placement * 05/08/17 -left-sided chest tube/pigtail * 04/30/17 -endotracheal intubation * 04/21/17 -Left hip reduction and intramedullary nail fixation . (Ashly Steven) Assessment and Plan Disease Oriented Problem List: (1) Acute respiratory failure (2) Acute CVA (cerebrovascular accident) (3) Pneumonia (4) Atrial fibrillation with RVR (5) Hypertension (6) Hip fracture Symptom Scale: (1) Shortness of breath 0-10 Scale: Unable to quantify Comment: Currently trached on mechanical ventilation. Failing T-Avilez trials. (2) Debility 0-10 Scale: Unable to quantify Comment: Progressive. (3) Pain 0-10 Scale: Unable to quantify Comment: Secondary to recent surgical intervention Pertinent Non-Medical Issues Psychosocial: Patient is originally from [facility]. Residing in [place] up until 2013 she moved to [place] to live with only daughter Trice. Patient is a , in 2006. Spiritual: No taoist affiliation. Legal: No advance directives completed. Ethical issues impacting care: Patient unable to participating in medical decision-making secondary to clinical condition. Patient's daughter acting as healthcare proxy decision maker. . Important Contacts Daughter Norma Salvador . . Prognosis Mrs. Hein needs a 76-year-old female with a past medical history of hypertension, diabetes mellitus and prior CVA. Presented with left hip fracture , underwent ORIF. Clinical course complicated by large left MCA infarct with edema. Overall prognosis is poor for a meaningful neurological recovery or long -term survival given acute stroke, chronic ongoing comorbidities and advanced age. Patient appears hospice appropriate should family elects comfort-directed care. . Code Status: Full Code Plan * CODE STATUS: FULL CODE. Risks, benefits and limitations of CPR given patient' s clinical condition and poor prognosis has been discussed in multiple occasions with patient's daughter Trice. * HEALTHCARE DECISION-MAKING: Patient unable to participate in medical decision- making secondary to clinical condition given severe large stroke. No advance directives completed, patient is . As per [place] statute, healthcare proxy decision-making falls to patient's only daughter Trice Salvador. * GOALS OF CARE: 06/02/17 -ongoing goals of care discussion, Patient's daughter previously electing to continue aggressive management to include full code. Case has been discussed with Dr. Heaton, rn case management Doris Enriquez and bedside RN. Difficult disposition, long-term plans for this patient are impacted by her psychosocial situation, no coverage/no payer source for long-term placement or rehab. Daughter verbalized inability to receive patient at home. Per discussion with case management, daughter has been contacted by [facility] [employer] ([employer]) and informed that patient only qualifies for emergency Medicaid which only covers patient while hospitalized. Per Case management, " [facility] staff, management is aware of the situation and are following pt and her daughter and that pt is at this time still in need of medical care and not ready for d/c". Pending transfer to [facility]. Tentative meeting with patient's daughter, alemite operator and palliative care tomorrow 06/03/17 at 17:00. * SYMPTOMS: = Shortness of breath, multifactorial. Secondary to altered mental status/CVA, pneumonia, lethargy. Now trached and on mechanical ventilation. Patient on CPAP, failing T-Avilez trials = Pain, secondary to recent surgical intervention. = Debility, progressive. Likely to continue to worsen given recent acute stroke and additional complications. * Case discussed with family practice, resident Dr. Canas. Made aware regarding tentative family meeting scheduled for tomorrow as stated above. * Palliative care contact information has been provided to patient's daughter. * Palliative care will continue to follow-up for further clarifications of goals of care as patient's clinical condition continues to evolve. . (Ashly Steven) Time Spent Total Floor Time (mins): 28 (Total time to include review of medical records, physical exam, case discussion with alemite operator Dr. Heaton, bedside RN, rn case management, family medicine Dr. Canas. ) >50% Counseling/Coord of Care: Yes (Ashly Steven) Attestation To help prompt me to consider important information that might be impacting today's encounter and assessment, information from prior notes written by myself or my colleagues may have been "brought forward" into today's note. My signature on this note, however, is an attestation that I personally performed the exam, history, and/or decision-making noted today, and, unless otherwise indicated, the interactions with patient, family, and staff as well as the review of records all occurred today. I also attest that the listed assessment and stated plan reflect my best clinical judgment today based on the combination of historical information, prior notes, and today's exam/ interactions. When time spent is documented, it refers only to time spent today by the signer, or if indicated, combined time spent today by collaborating physician/nurse practitioner. (Ashly Steven) Collaborating MD Comments Chart reviewed. Case discussed with palliative care PICKING MACHINE OPERATOR. Above note reviewed and I concur. . (Vamsi Minaya MD) Ashly Steven Jun 02, 2017 16:30 Vamsi Minaya MD Jun 08, 2017 12:11
--- NOTE | 2017-06-02 19:24 | EKG ---
Date Performed: 06/02/2017 Time Performed: 02:11:14 PTAGE: 76 years EKG: Sinus rhythm Poor R wave progression - probable normal variant Inferior/lateral ST-T changes may be due to myocar dial ischemia Abnormal ECG PREVIOUS TRACING : 05/11/2017 11.38 Compared to prior tracing no significant change DOCTOR: Keron Arshad Interpretating Date/Time 06/02/2017 19:22:01
[2017-06-03] VITALS (18 sets, daily range): BP systolic 107–179; BP diastolic 55–83; PULSE 62–96; RESP 14–21; TEMP 97.4–99.4; O2SAT 97–100
[2017-06-03] MEDS: hydrALAZINE HCL 20 MG/ML VIAL IV PUSH PRN ×2 (02:27→13:32)
[2017-06-03] MEDS: CEFEPIME INJ 1,000 MG in SODIUM CHLORIDE 0.9% INJ 100 ML IV SCH (05:32)
[2017-06-03] MEDS: FREE WATER G-TUBE SCH ×5 (06:00→23:32)
[2017-06-03] MEDS: INSULIN ASPART SUPPLEMENTAL SCALE SQ SCH ×4 (08:00→21:00)
[2017-06-03] MEDS: CHOLECALCIFEROL (VIT D3) 5000 UNIT CAP PO SCH (08:53)
[2017-06-03] MEDS: CALCIUM/VITAMIN D 250 MG/125 U TAB PO SCH ×3 (08:53→17:23)
[2017-06-03] MEDS: ENOXAPARIN SODIUM 40 MG/0.4 ML SYRINGE SQ SCH (08:53)
[2017-06-03] MEDS: LISINOPRIL 10 MG TAB PO SCH ×2 (08:53→21:47)
[2017-06-03] MEDS: INSULIN DETEMIR 100 UNITS/ML VIAL SQ SCH ×2 (08:53→21:47)
[2017-06-03] MEDS: ASPIRIN 325 MG TAB DOBHOFF SCH (08:54)
[2017-06-03] MEDS: BENEPROTEIN POWDER 1 PACK G-TUBE SCH ×3 (08:54→17:23)
[2017-06-03] MEDS: SODIUM CHLORIDE 0.9% FLUSH 5 ML FLUSH IV FLUSH SCH ×2 (08:54→21:00)
[2017-06-03] MEDS: FUROSEMIDE 40 MG/5 ML UNIT DOSE CUP NG SCH (08:54)
[2017-06-03] MEDS: DOCUSATE SODIUM 100 MG/10 ML UDC PO SCH ×2 (08:54→21:00)
[2017-06-03] MEDS: LANSOPRAZOLE SOLUTAB 30 MG TAB NG SCH (08:54)
--- NOTE | 2017-06-03 09:18 | HHI.FPPN ---
Subjective Remarks Afebrile and vital signs stable overnight. Patient appears at baseline with spontaneous movement on the left and flaccid paralysis on the right. Planning for family meeting today at 5 PM. (Jose R Bennett MD R2) Objective Vitals Vital Signs Date Time Temp Pulse Resp B/P (MAP) Pulse Ox O2 Delivery O2 Flow Rate FiO2 06/03/17 08:47 98 40 06/03/17 07:00 98 Mechanical Ventilator 40 Trach Collar 06/03/17 06:00 88 06/03/17 04:00 40 06/03/17 04:00 97.8 90 14 151/72 (98) 98 06/03/17 04:00 92 06/03/17 02:00 88 06/03/17 00:42 100 40 06/03/17 00:00 98.2 62 14 156/72 (100) 100 06/03/17 00:00 40 06/03/17 00:00 62 06/02/17 22:00 63 06/02/17 20:04 98 40 06/02/17 20:00 71 06/02/17 20:00 40 06/02/17 20:00 98.1 62 14 117/58 (77) 100 06/02/17 19:00 100 Mechanical Ventilator 40 Trach Collar 06/02/17 18:00 60 06/02/17 16:00 97.5 58 14 103/57 (72) 99 06/02/17 16:00 40 06/02/17 16:00 76 06/02/17 15:25 99 40 06/02/17 14:00 63 06/02/17 12:29 100 40 06/02/17 12:00 64 06/02/17 12:00 40 06/02/17 12:00 98.4 64 14 118/58 (78) 100 06/02/17 10:00 73 I/O 06/02/17 06/02/17 06/02/17 06/03/17 06/03/17 06/03/17 07:00 15:00 23:00 07:00 15:00 23:00 Intake Total 1132 ml 1260 ml 1058 ml Output Total 650 ml 850 ml 725 ml Balance 482 ml 410 ml 333 ml IV Total 100 ml 100 ml Tube Feeding 432 ml 560 ml 458 ml Other 600 ml 600 ml 600 ml Output Urine Total 650 ml 850 ml 725 ml # Bowel Movements 2 3 2 (Jose R Bennett MD R2) Result Diagram: 06/02/1745106/02/17451 Imaging Last Impressions Head CT 05/15/17 0000 Signed Impressions: Service Date/Time: May 19:59 - CONCLUSION: 1. 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 2. No bleed or new/acute infarct. Obdulio Simms MD Chest X-Ray 05/15/17 0000 Signed Impressions: Service Date/Time: May 12:38 - CONCLUSION: 1. A tracheostomy tube in good position with its tip 2 cm above the valerie. 2. Stable scattered pulmonary infiltrates bilaterally. 3. Dobbhoff feeding tube has its tip in the distal stomach. Enzo Farooq MD Abdomen X-Ray 05/10/17 0000 Signed Impressions: Service Date/Time: Wednesday, May 10, 2017 22:08 - CONCLUSION: Tip of Dobbhoff catheter is in the antrum of the stomach. Sage Adler MD Gall Bladder Ultrasound 05/08/17 0000 Signed Impressions: Service Date/Time: May 08:23 - CONCLUSION: Focally unremarkable appearance of the gallbladder Obdulio Chun MD Abdomen/Pelvis CT 05/07/17 0000 Signed Impressions: Service Date/Time: Sunday, May 07, 2017 13:23 - CONCLUSION: 1. Large left pneumothorax. 2. Bilateral lower lobe consolidation and bilateral moderate size pleural effusions. 3. Significant soft tissue thickening of the right lateral chest wall and left gluteus muscle. 4. Mild ascites. The findings were called to Dr. Carney. Deangelo Zamora MD Hip and Pelvis X-Ray 05/05/17 0000 Signed Impressions: Service Date/Time: Friday, May 05, 2017 10:59 - CONCLUSION: Left proximal femur trochanteric/subtrochanteric fracture lucency visualized. Postoperative changes. Choco Mustafa MD Chest CT 04/30/17 0000 Signed Impressions: Service Date/Time: Sunday, April 30, 2017 09:20 - CONCLUSION: 1. Bilateral pulmonary infiltrates more pronounced within the lower lobes with tiny bilateral pleural effusions. Material seen filling the lower lobe bronchi bilaterally either related to purulent material or perhaps mucus plugging. Deangelo Wren Jr., MD Carotid Artery Ultrasound 04/24/17 0000 Signed Impressions: Service Date/Time: April 09:45 - CONCLUSION: 1. No hemodynamically significant carotid artery stenosis. Arnie Middleton MD Hip X-Ray 04/21/17 0000 Signed Impressions: Service Date/Time: Friday, April 21, 2017 11:36 - CONCLUSION: Fluoroscopic images during placement of intramedullary siomara left femur. Benja Ramsey MD Objective Remarks CONSTITUTIONAL/GEN: Nonverbal, lying in bed with tracheostomy and PEG tubes in place with head turned to left. Patient's eyes are open today, still grabbing and moving her left hand, but not following commands. HEAD: Normocephalic. Atraumatic. Right side facial droop. LUNGS: On vent, has not been tolerating CPAP trials. Coarse breath sounds bilaterally but moving air well CARDIOVASCULAR: Regular rate and rhythm. Pitting edema of hands 1+ on left, Pitting edema of R foot 2+, no pitting edema on L leg and foot. GI/ABD: active BS w/o guarding or rebound. no grimacing with palpation. Glucerna 1.5 tube feed @ 45ml/hr. 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 Moves left UE and LE spontaneously and intermittently. MUSC: SCDs on bilateral lower extremities. Pedal pulses present. SKIN: Sacral pressure ulcer extends from anus to coccyx. Procedures ORIF 04/21/17 Intubation 04/30/17 (Jose R Bennett MD R2) A/P Assessment and Plan 76 y/o female with HTN, DM, CVA admitted for DKA and hip fracture. Sadly, patients with hip fractures have other problems and have a high chance of fatal conditions near the time of their fractures. Hip fractures are often a marker for other frailty. Now with massive left MCA stroke, right hemiplegia and midline shift resolving. Neurology and butcher head consulted. Poor prognosis per neurology. Working with palliative care and daughter for goals of care. Now completing treatment of UTI and attempting to wean off vent. Discharge Planning Pending stroke progression and discussion for goals of care She has no Insurance. Medicaid was applied for and she cannot have this as she is not a [place] citizen and has not lived in the [place] long enough. She cannot go to a vent facility nor a SNF without insurance. Case management explained that to her daughter. Per her daughter, she continues to believe she will improve back to her norm at some point and wants to keep her with aggressive measures. She is looking for rehab as she believes her mother can improve. (Jose R Bennett MD R2) Attending Attestation Pt. examined and case discussed with resident physicians I have read the above note and agree with the assessment/mcdonald as discussed with me I was involved in all medical decision making for this patient. Fazal Zamora MD (Fazal Zamora MD) Problem List: (1) Acute CVA (cerebrovascular accident) ICD Codes: I63.9 - Cerebral infarction, unspecified Status: Acute Plan: -Consulted butcher head, appreciate recs: s/p Tracheostomy 05/15 and PEG tube insertion 05/16 with poor prognosis -wean off vent as tolerated -Neurosurgery consulted -Recommended conservative management -Client Success Manager consulted and appreciated: -Tube feeds: Glucerna 1.5 tube feed @ 45ml/hr 24 hours a day for diet via PEG tube -maintenance fluid through PEG tube: free water 300cc q6h as she needs maintenance fluid of about 95 ml/hr -Physical therapy consulted and appreciated -Consulted palliative care-appreciate recs. appreciate help in talking to her daughter -Daughter continues to want aggressive care. Wishes to continue aggressive medical treatment despite prognosis -Neurology consulted-appreciate recs: Poor prognosis -Rectal ASA -Lovenox 40mg daily History and imaging: Patient found minimally responsive with neurological deficits around 0820 04/24. Stat CT of head was ordered, which showed large left MCA infarct. Diffuse edema throughout the left MCA distribution, suggested completed infarct. This was discussed and was not a candidate for intracranial intervention. CT (04/30): Reduction in midline shift to 11mm. Unchanged large left MCA infarction. CT head (05/06) shows: Evolving large left-sided MCA territory infarct with minimally improved [id number] subfalcine shift. No intercurrent hemorrhage or other acute abnormality. Echocardiogram- The left ventricular systolic function is low normal with an estimated ejection fraction in the range of 50-55%. Mild concentric left ventricular hypertrophy. Normal left ventricular size. [id number] mitral valve regurgitation. Carotid Artery US- No hemodynamically significant carotid stenosis (2) On mechanically assisted ventilation ICD Codes: Z99.11 - Dependence on respirator [ventilator] status Plan: Impression: s/p trach procedure 05/15. Currently on vent. -Continue weaning trials as tolerated (3) UTI (urinary tract infection) ICD Codes: N39.0 - Urinary tract infection, site not specified Status: Resolved Plan: -cefepime 1 g every 12 hours (05/27 start, Day #03/07 today) History: - 05/25 Nurse reported malodorous urine; patient had required straight cath's q6h for the previous 5 days. Leavitt ordered. - UA: + leuk est, + nitrate, + WBC - Continue Leavitt cath - Urine culture grew Citrobacter freundii resistant to ceftriaxone - Rocephin 1g IV q24h (05/26 - 05/27) changed to cefepime (given low JEFFREY <2). Plan for cefepime 1 g every 12 hours for 7 to 10 days. (05/27 - present) (4) Anemia ICD Codes: D64.9 - Anemia, unspecified Status: Chronic Plan: s/p 1u of PRBC on 05/29/17. Hgb stable since then. Hemoccult negative. - monitor H&H (5) Urinary retention ICD Codes: R33.9 - Retention of urine, unspecified Status: Acute Plan: -Inserted Leavitt cath because patient was retaining urine with intermittent cath's (6) Sacral decubitus ulcer ICD Codes: L89.159 - Pressure ulcer of sacral region, unspecified stage Plan: Patient with small sacral decubitus ulcer over the coccyx. -Wound care consult appreciated: 1. Please cleanse buttock, coccyx, and sacral areas gently with soap and water and apply thick layer of Calazime barrier cream BID and PRN and leave wound open to air for now. 2. Order pressure relieving support surface mattress or bed such as halifax airapy or K-4 bed from [facility] [place], [place]. 3. Continue to turn patient every 2 hours or PRN for comfort. 4. Please do not put thick cloth underpads under patient for turning purposes. Please use flat turn sheet and ultra sorb pads for incontinence management. (7) Diarrhea ICD Codes: R19.7 - Diarrhea, unspecified Status: Resolved Plan: Nurse reported diarrhea. -C diff stool PCR negative (8) Type 2 diabetes mellitus ICD Codes: E11.9 - Type 2 diabetes mellitus without complications Status: Chronic Plan: - Continue Levemir 7AM + 7 PM for hyperglycemia, fingersticks have improved - Continue low dose SSI, goal 140-180 -Glucerna for PEG tube feedings @ 45 ml/hr History: Admitted for DKA which has now resolved. Hemoglobin A1C is 12.9. Diabetes Type I is uncontrolled. 05/22 - 8PM stating pt BG level at 60 and hypoglycemia protocol started, then Levemir 5AM + 5PM until raised on 05/28 (9) Hypertension ICD Codes: I10 - Essential (primary) hypertension Status: Acute Plan: BPs at goal overnight -Antihypertensives to keep SBP<180 -Lasix or Bumex for diuresis as required (10) Atrial fibrillation ICD Codes: I48.91 - Unspecified atrial fibrillation Status: Resolved Plan: Hx of intermittent Afib. Resolved with administration of Lopressor. -Continue to monitor -Lopressor PRN (11) Hip fracture ICD Codes: S72.009A - Fracture of unspecified part of neck of unspecified femur , initial encounter for closed fracture Status: Resolved Plan: S/P left hip reduction and intramedullary nail fixation on 04-21-17 -Consulted orthopedics-appreciate recs * WBAT * Daily dressing changes -Calcium/Vitamin D -Fluids as above -Tylenol, morphine PRN pain, but it is difficult to tell if she is having pain (12) Fluids, Electrolytes, and Nutrition Status: Acute Plan: Fluids: through PEG tube Electrolyte: on electrolyte protocol Nutrition: Glucerna tube feeds and free water DVT ppx: SCDs/lovenox 40 mg daily CVA ppx: aspirin 325 mg GI ppx: Lansoprazole Colace, fleet enema mineral oil PRN (Jose R Bennett MD R2) Problem Qualifiers (1) UTI (urinary tract infection): Qualified Codes: N39.0 - Urinary tract infection, site not specified (2) Sacral decubitus ulcer: Qualified Codes: L89.151 - Pressure ulcer of sacral region, stage 1 (3) Type 2 diabetes mellitus: Qualified Codes: E11.9 - Type 2 diabetes mellitus without complications (4) Hypertension: Qualified Codes: I10 - Essential (primary) hypertension (5) Atrial fibrillation: Qualified Codes: I48.0 - Paroxysmal atrial fibrillation (6) Hip fracture: Jose R Bennett MD R2 Jun 03, 2017 09:18 Fazal Zamora MD Jun 03, 2017 11:10
--- NOTE | 2017-06-03 11:32 | HHI.CCPN ---
Subjective Remarks/Hospital Course Note for 05/30/17: 04/24: 76-year-old female with a medical history significant for prior stroke, diabetes mellitus who was admitted with DKA and a hip fracture for which she underwent ORIF on 04/21. Patient developed altered mental status and was last noted to be okay around 5:30 AM. Subsequently there was a change in her mental status and she was noted to not be moving her right side for which stroke alert was called. Head CT showed large left MCA territory ischemic infarct with edema. Patient was transferred to the ICU by family medicine service in the critical care consult was requested. I evaluated the patient following arrival to the ICU. At that time she was laying in bed with her eyes open however not following commands and had a dense right hemiplegia. Patient was also evaluated by Dr. Malave from neurology. I further discussed current event with patient's daughter following her arrival to the ICU. Per the daughter patient has been living with her since her stroke in 2014 and does ambulate however has been having problems with memory and incontinence as well as gait difficulties. She does not feel patient would want intubation or tracheostomy or PEG tube. 04/25: Patient remains encephalopathic, awake though not following commands consistently. Dense right hemiplegia persists. Appears to be awake enough to protect airway currently. Patient's daughter rescinded DNR and made a full code last evening. 04/26: Remains encephalopathic, not following commands. On Dobbhoff for tube feeds at 30 cc per hour. Had urinary retention and drained 2 L of urine after placing Moser catheter today. CT head done this morning with large left MCA territory infarct with left to right midline shift and significant cerebral edema. Hyperglycemia noted. Patient given mannitol earlier for increasing cerebral edema. 04/27: Remains encephalopathic, not following commands. On Dobbhoff tube feeds at 30 cc per hour. When into A. fib with RVR last night which responded with Lopressor 5 mg IV 1 dose. 04/28: Remains encephalopathic, arousable, not following commands. Moves left upper extremity spontaneously. Tolerating Dobbhoff tube feeds. Remains on nasal cannula. 04/29: Encephalopathic, eyes be arousable, moves left upper extremity spontaneously and occasionally opens eyes. Dense right hemiplegia and aphasia persists. On nasal cannula. Dobbhoff tube feeds being advanced. Patient was transfused 1 unit PRBCs yesterday. Urine culture with yeast from yesterday for which fluconazole being started. Had brief run of A. fib with RVR which improved with Lopressor IV, currently in sinus rhythm. 04/30: Worsening hypoxemic respiratory failure, currently on partial nonrebreather. Remains lethargic. WBC count increased from 14.6 today 20.7. Chest x-ray shows bilateral worsening infiltrates and small pleural effusions. Sodium 154, weight up by 8 KG. Albumin 1 mg Bumex 1. Also one dose of albumin. Remains in sinus tachycardia. Tmax 101.3 05/01: Patient was intubated yesterday for lack of airway protection, and severe hypoxemic respiratory failure from aspiration pneumonia involving multiple lobes. Patient is on the vent lethargic, no spontaneous eye opening. Chest x- ray remains unchanged. Remains intermittently febrile Tmax 101.3. WBC count improving 05/02: Remains critically ill with no improvement in mental status. Spiking fever of 101.7. Blood culture and sputum culture with staph aureus sputum also growing GNR, WBC count 22,000 now indicating worsening sepsis. Daughter still requesting aggressive care. Palliative care is following 05/03: S/P large area dominant hemisphere CVA. No neurological improvement. Now with pneumonia (infiltrate, fever, leukocytosis) and appropriate abx coverage. She will have a hard time surviving the hip fx, CVA, and pneumonia. Palliative Care needs to be a mainstay of our plan. 05/04: No improvement in neuro status. Sputum C&S allows us to narrow abx coverage to levaquin alone. Lungs remain quite congested. Enteral nutrition tolerated. 05/05: No improvement in neuro status. Moves left arm spontaneously. Flaccid right side. Unresponsive. Persistent mild hypoglycemia - will cut Levemir 50%. Abdomen more distended, check KUB. 05/06: CT head with massive left MCA infarction and > 1 cm shift in right handed woman. She opens eyes, does not track. 05/07: Patient open eyes. Attempts to respond. Belgian speaking. Tolerating tube feeds. Positive bowel movement. Volume overloaded. 05/08: Tmax 99.4. Potassium being replaced. Ultrasound gallbladder currently pending. Transaminases are trending downward. Gently diurese. 05/09: Alk phos decreasing. Remains with good urine output. Neurological status not improving. 05/10: Fixed neuro deficit unchanged. Profound CVA. 05/11: Appears to track with eyes today. No improvement in motor function. Remains very edematous, diuretics doubled. 05/12: Continued thick secretions. Afebrile, leukocytosis resolved. 05/13: CT head with completed left MCA stroke, persistent edema and 5 mm shift away. Does not last long on SBTs - major decision now is trach/PEG. 05/14: Daughter has decided to proceed with trach and PEG. I have been pessimistic with her about chances for a meaningful recovery. 05/15: Plan for trach today. No change in neuro status. Still ventilator dependent. 05/16: Trach completed. Await PEG and disposition. 05/17: PEG placed 05/16. Start TFs today after nutrition consult. Work to place patient. 05/18: No improvement. Does open eyes, no focus or tracking. Completed large dominant (left) hemisphere CVA in right handed woman with severe deficit. Medicaid pending status, [facility] is following. 05/19: no improvements in neuro exam. ready for LTAC. will d/c moser and rectal tubes. 05/20: no changes or improvements. very difficult placement due to patient not [place] citizen. 05/21: no improvements. resting on vent overnight due to distress. 05/22: no neurologic changes. no improvements. attempted T-piece which failed after 10 minutes. 05/23: no improvements. poor prognosis. poor neuro exam. still failing weaning trials. 05/24: no improvements or changes. still failing t-piece trials. 05/25: No acute changes of improvement overnight. Failed CPAP due to apnea, tried again currently tolerating. Neurological exam unchanged. 05/26: No improvement in neurological function. 05/27: Patient has required Moser catheter because of breakdown of skin on upper thighs and groin. Urine has become infected, will treat. 05/28: Some drainage from around trach (placed 2 weeks ago). Will change out trach tube and inspect neck wound. I&O straight cath q6h order entered 05/17. 05/29: No improvement, remains obtunded. Failed CPAP trials yesterday and again today due to apnea. Moser placed due to persistent urinary retention 05/30: Obtunded, unresponsive. Failed SBTs, remains ventilator dependent. 05/31: Patient continues to fail SBT failed yesterday due to apnea. Neuro exam remains unchanged. 06/01: No acute changes overnight, 06/02: no changes. ekg done overnight for ? EKG changes seen on telemetry which were not visualized on EKG. Subjective 06/03: no improvements or changes. had long conversation with daughter yesterday. only facility which would accept patient is in [place] and daughter is refusing to allow patient to go there because it is "too far away." Daughter continues to push for aggressive care despite no improvements, and resistant to Hospice. Patient does not need acute inpatient therapy but lacks funding for appropriate disposition. Objective Vital Signs Date Time Temp Pulse Resp B/P (MAP) Pulse Ox O2 Delivery O2 Flow Rate FiO2 06/03/17 10:52 98 40 06/03/17 10:00 73 06/03/17 08:00 98.5 21 179/83 (115) 06/03/17 07:00 Mechanical Ventilator Trach Collar Intake and Output 06/03/17 06/03/17 06/04/17 08:00 16:00 00:00 Intake Total 1058 ml Output Total 725 ml Balance 333 ml Result Diagram: 06/02/17 0452 06/02/17 0452 Imaging Last Impressions Chest X-Ray 05/07/17 0400 Signed Impressions: Service Date/Time: Sunday, May 07, 2017 04:38 - CONCLUSION: 1. Stable Low-lying ETT with tip approximately 1 cm above the valerie. 2. Mild interval progression of bilateral airspace consolidation exaggerated by patient rotation. 3. Increased small left pleural effusion. Alejo De La Vega MD Abdomen/Pelvis CT 05/07/17 0000 Signed Impressions: Service Date/Time: Sunday, May 07, 2017 13:23 - CONCLUSION: 1. Large left pneumothorax. 2. Bilateral lower lobe consolidation and bilateral moderate size pleural effusions. 3. Significant soft tissue thickening of the right lateral chest wall and left gluteus muscle. 4. Mild ascites. The findings were called to Dr. Carney. Deangelo Zamora MD Head CT 05/06/17 0000 Signed Impressions: Service Date/Time: Saturday, May 06, 2017 04:18 - CONCLUSION: 1. Evolving large left-sided MCA territory infarct with minimally improved [id number] subfalcine shift. 2. No intercurrent hemorrhage or other acute abnormality. Alejo De La Vega MD Abdomen X-Ray 05/06/17 0000 Signed Impressions: Service Date/Time: Saturday, May 06, 2017 17:42 - CONCLUSION: Dobbhoff feeding tube tip near the gastroduodenal junction. Obdulio Simms MD Hip and Pelvis X-Ray 05/05/17 0000 Signed Impressions: Service Date/Time: Friday, May 05, 2017 10:59 - CONCLUSION: Left proximal femur trochanteric/subtrochanteric fracture lucency visualized. Postoperative changes. Choco Mustafa MD Chest CT 04/30/17 0000 Signed Impressions: Service Date/Time: Sunday, April 30, 2017 09:20 - CONCLUSION: 1. Bilateral pulmonary infiltrates more pronounced within the lower lobes with tiny bilateral pleural effusions. Material seen filling the lower lobe bronchi bilaterally either related to purulent material or perhaps mucus plugging. Deangelo Wren Jr., MD Carotid Artery Ultrasound 04/24/17 0000 Signed Impressions: Service Date/Time: April 09:45 - CONCLUSION: 1. No hemodynamically significant carotid artery stenosis. Arnie Middleton MD Hip X-Ray 04/21/17 0000 Signed Impressions: Service Date/Time: Friday, April 21, 2017 11:36 - CONCLUSION: Fluoroscopic images during placement of intramedullary siomara left femur. Benja Ramsey MD Objective Remarks Gen: 76-year-old female, unresponsive. HEENT: mucous membranes moist. Neck: Trached. site clean and dry. Resp: unlabored. on ventilator. Cardiovascular: RRR. No murmurs, no JVD. GI/abdomen: Distended. Nontender. no guarding. Extremities: Warm bilaterally, edema lowers. Incision sites over left hip, site clean dry and intact. Neuro: On no sedation. Grimaces spontaneously, no eye opening. Dense right hemiplegia. Withdraws left upper extremity, Withdraws LLE. No change. Pupils 2 mm, react. A/P Assessment and Plan Neuro/Psych: Left MCA CVA - 12 mm of [id number] subfalcine herniation - right-sided hemiplegia Acute encephalopathy History CVA Follow neuro status closely. Continue Aspirin 325 mg by mouth daily. Patient was not a candidate for thrombolysis per discussion with neurology and radiology. Repeat head CT 05/05 showed slight improvement in the midline shift and mass effect Neurosurgery consulted 04/30- Dr. López, recommended conservative management Neurology following - Dr. Malave Cardiovascular: Hypertension As needed Antihypertensives to keep systolic blood pressure less than to 160 mmHg (when necessary IV labetalol and IV hydralazine) Started lisinopril 10 mg twice a day 05/31/17, with improved control now Echocardiogram 04/24 - EF 50 to 55%. Mild concentric LVH. Pulmonary: Acute hypoxic respiratory failure - aspiration possible HCAP Large left pneumothorax status post #10 Turkmen chest tube 05/07 Ventilator bundle. Ipratropium/albuterol aerosols every 6 hours with albuterol aerosols every 2 hours Chest tube d/c'd 05/12 Daily SBTs. failing for apnea. will continue trials daily. GI/liver: Elevated transaminases Hypoalbuminemia Moderate to severe protein calorie malnutrition Continue PEG tube feeding with Glucerna 1.5 goal 45 cc an hour Lansoprazole 30 mg daily for GI regimen Docusate sodium 100 twice a day, Senokot 8.6 twice a day, polyethylene glycol 17 grams twice a day and lactulose 30 cc [address] abdomen/pelvis 05/07 - mild ascites. Large left hemothorax. Right greater than left pleural effusion. Endocrine: Diabetes mellitus Detemir 8 units subcutaneous daily. SSI high dose q4h. Holding glimepiride 4 mg by mouth daily /Renal/FEN: Hypokalemia Strict intake output, monitor and replete electrolytes, follow BUN/creatinine. Moser catheter placed for urinary retention on 04/26. Moser removed 05/19 with q6h straight cath. Moser replaced again due to persistent urinary retention. 05/31/17 Heme: Chronic Rivaroxaban use Leukocytosis Normocytic anemia Thrombocytosis Follow CBC and coags. On subcutaneous enoxaparin Hemoglobin currently stable. No indications for transfusion of blood proximally at this time ID: MSSA bacteremia Serratia/staph aureus pneumonia C glabrata UTI Citrobacter UTI Pertinent cultures Urine culture 04/26/17 sofie glabrata Blood culture 04/29/17 1 out of 4 bottles staph aureus Sputum culture 04/30/17 staph aureus and Serratia. Blood cultures 2, sputum 1 and urine 05/08 pending -> Serratia, treated. Urine 05/26: Citrobacter Ceftriaxone started 09/25, changed to Cefepime 05/27 based on sensitivity, stop date 06/03/17 MSK: Left Intertroch Hip Fx s/p IMN Vitamin D deficiency Prophylaxis: SCDs. Enoxaparin 40 mg sq daily-cleared by Dr. Malave. GI - lansoprazole Overall impression: Severe dominant hemisphere CVA. No improvement. Poor prognosis. Very difficult wean given age, comorbidities and deconditioning. PEG placed. No change in neuro status. Unable to place and little hope for any significant recovery. Anuj Heaton MD Jun 03, 2017 11:32
[2017-06-04] VITALS (18 sets, daily range): BP systolic 131–160; BP diastolic 0–74; PULSE 60–82; RESP 14–15; TEMP 98–99.7; O2SAT 93–100
[2017-06-04] MEDS: FREE WATER G-TUBE SCH ×3 (06:00→16:41)
[2017-06-04] MEDS: ENOXAPARIN SODIUM 40 MG/0.4 ML SYRINGE SQ SCH (08:21)
[2017-06-04] MEDS: INSULIN ASPART SUPPLEMENTAL SCALE SQ SCH ×4 (08:21→21:00)
[2017-06-04] MEDS: CHOLECALCIFEROL (VIT D3) 5000 UNIT CAP PO SCH (08:22)
[2017-06-04] MEDS: FUROSEMIDE 40 MG/5 ML UNIT DOSE CUP NG SCH (08:22)
[2017-06-04] MEDS: LISINOPRIL 10 MG TAB PO SCH ×2 (08:22→21:43)
[2017-06-04] MEDS: LANSOPRAZOLE SOLUTAB 30 MG TAB NG SCH (08:22)
[2017-06-04] MEDS: CALCIUM/VITAMIN D 250 MG/125 U TAB PO SCH ×3 (08:22→16:41)
[2017-06-04] MEDS: BENEPROTEIN POWDER 1 PACK G-TUBE SCH ×3 (08:23→16:41)
[2017-06-04] MEDS: INSULIN DETEMIR 100 UNITS/ML VIAL SQ SCH ×2 (08:23→21:00)
[2017-06-04] MEDS: DOCUSATE SODIUM 100 MG/10 ML UDC PO SCH ×2 (08:23→21:00)
[2017-06-04] MEDS: SODIUM CHLORIDE 0.9% FLUSH 5 ML FLUSH IV FLUSH SCH ×2 (08:23→21:00)
[2017-06-04] MEDS: ASPIRIN 325 MG TAB DOBHOFF SCH (08:23)
--- NOTE | 2017-06-04 12:09 | HHI.CCPN ---
Subjective Remarks/Hospital Course Note for 05/30/17: 04/24: 76-year-old female with a medical history significant for prior stroke, diabetes mellitus who was admitted with DKA and a hip fracture for which she underwent ORIF on 04/21. Patient developed altered mental status and was last noted to be okay around 5:30 AM. Subsequently there was a change in her mental status and she was noted to not be moving her right side for which stroke alert was called. Head CT showed large left MCA territory ischemic infarct with edema. Patient was transferred to the ICU by family medicine service in the critical care consult was requested. I evaluated the patient following arrival to the ICU. At that time she was laying in bed with her eyes open however not following commands and had a dense right hemiplegia. Patient was also evaluated by Dr. Malave from neurology. I further discussed current event with patient's daughter following her arrival to the ICU. Per the daughter patient has been living with her since her stroke in 2014 and does ambulate however has been having problems with memory and incontinence as well as gait difficulties. She does not feel patient would want intubation or tracheostomy or PEG tube. 04/25: Patient remains encephalopathic, awake though not following commands consistently. Dense right hemiplegia persists. Appears to be awake enough to protect airway currently. Patient's daughter rescinded DNR and made a full code last evening. 04/26: Remains encephalopathic, not following commands. On Dobbhoff for tube feeds at 30 cc per hour. Had urinary retention and drained 2 L of urine after placing Moser catheter today. CT head done this morning with large left MCA territory infarct with left to right midline shift and significant cerebral edema. Hyperglycemia noted. Patient given mannitol earlier for increasing cerebral edema. 04/27: Remains encephalopathic, not following commands. On Dobbhoff tube feeds at 30 cc per hour. When into A. fib with RVR last night which responded with Lopressor 5 mg IV 1 dose. 04/28: Remains encephalopathic, arousable, not following commands. Moves left upper extremity spontaneously. Tolerating Dobbhoff tube feeds. Remains on nasal cannula. 04/29: Encephalopathic, eyes be arousable, moves left upper extremity spontaneously and occasionally opens eyes. Dense right hemiplegia and aphasia persists. On nasal cannula. Dobbhoff tube feeds being advanced. Patient was transfused 1 unit PRBCs yesterday. Urine culture with yeast from yesterday for which fluconazole being started. Had brief run of A. fib with RVR which improved with Lopressor IV, currently in sinus rhythm. 04/30: Worsening hypoxemic respiratory failure, currently on partial nonrebreather. Remains lethargic. WBC count increased from 14.6 today 20.7. Chest x-ray shows bilateral worsening infiltrates and small pleural effusions. Sodium 154, weight up by 8 KG. Albumin 1 mg Bumex 1. Also one dose of albumin. Remains in sinus tachycardia. Tmax 101.3 05/01: Patient was intubated yesterday for lack of airway protection, and severe hypoxemic respiratory failure from aspiration pneumonia involving multiple lobes. Patient is on the vent lethargic, no spontaneous eye opening. Chest x- ray remains unchanged. Remains intermittently febrile Tmax 101.3. WBC count improving 05/02: Remains critically ill with no improvement in mental status. Spiking fever of 101.7. Blood culture and sputum culture with staph aureus sputum also growing GNR, WBC count 22,000 now indicating worsening sepsis. Daughter still requesting aggressive care. Palliative care is following 05/03: S/P large area dominant hemisphere CVA. No neurological improvement. Now with pneumonia (infiltrate, fever, leukocytosis) and appropriate abx coverage. She will have a hard time surviving the hip fx, CVA, and pneumonia. Palliative Care needs to be a mainstay of our plan. 05/04: No improvement in neuro status. Sputum C&S allows us to narrow abx coverage to levaquin alone. Lungs remain quite congested. Enteral nutrition tolerated. 05/05: No improvement in neuro status. Moves left arm spontaneously. Flaccid right side. Unresponsive. Persistent mild hypoglycemia - will cut Levemir 50%. Abdomen more distended, check KUB. 05/06: CT head with massive left MCA infarction and > 1 cm shift in right handed woman. She opens eyes, does not track. 05/07: Patient open eyes. Attempts to respond. Italian speaking. Tolerating tube feeds. Positive bowel movement. Volume overloaded. 05/08: Tmax 99.4. Potassium being replaced. Ultrasound gallbladder currently pending. Transaminases are trending downward. Gently diurese. 05/09: Alk phos decreasing. Remains with good urine output. Neurological status not improving. 05/10: Fixed neuro deficit unchanged. Profound CVA. 05/11: Appears to track with eyes today. No improvement in motor function. Remains very edematous, diuretics doubled. 05/12: Continued thick secretions. Afebrile, leukocytosis resolved. 05/13: CT head with completed left MCA stroke, persistent edema and 5 mm shift away. Does not last long on SBTs - major decision now is trach/PEG. 05/14: Daughter has decided to proceed with trach and PEG. I have been pessimistic with her about chances for a meaningful recovery. 05/15: Plan for trach today. No change in neuro status. Still ventilator dependent. 05/16: Trach completed. Await PEG and disposition. 05/17: PEG placed 05/16. Start TFs today after nutrition consult. Work to place patient. 05/18: No improvement. Does open eyes, no focus or tracking. Completed large dominant (left) hemisphere CVA in right handed woman with severe deficit. Medicaid pending status, [facility] is following. 05/19: no improvements in neuro exam. ready for LTAC. will d/c moser and rectal tubes. 05/20: no changes or improvements. very difficult placement due to patient not [place] citizen. 05/21: no improvements. resting on vent overnight due to distress. 05/22: no neurologic changes. no improvements. attempted T-piece which failed after 10 minutes. 05/23: no improvements. poor prognosis. poor neuro exam. still failing weaning trials. 05/24: no improvements or changes. still failing t-piece trials. 05/25: No acute changes of improvement overnight. Failed CPAP due to apnea, tried again currently tolerating. Neurological exam unchanged. 05/26: No improvement in neurological function. 05/27: Patient has required Moser catheter because of breakdown of skin on upper thighs and groin. Urine has become infected, will treat. 05/28: Some drainage from around trach (placed 2 weeks ago). Will change out trach tube and inspect neck wound. I&O straight cath q6h order entered 05/17. 05/29: No improvement, remains obtunded. Failed CPAP trials yesterday and again today due to apnea. Moser placed due to persistent urinary retention 05/30: Obtunded, unresponsive. Failed SBTs, remains ventilator dependent. 05/31: Patient continues to fail SBT failed yesterday due to apnea. Neuro exam remains unchanged. 06/01: No acute changes overnight, 06/02: no changes. ekg done overnight for ? EKG changes seen on telemetry which were not visualized on EKG. Subjective 06/03: no improvements or changes. had long conversation with daughter yesterday. only facility which would accept patient is in [place] and daughter is refusing to allow patient to go there because it is "too far away." Daughter continues to push for aggressive care despite no improvements, and resistant to Hospice. Patient does not need acute inpatient therapy but lacks funding for appropriate disposition. 06/04: No acute events overnight, failed SBT due to apnea. Objective Vital Signs Date Time Temp Pulse Resp B/P (MAP) Pulse Ox O2 Delivery O2 Flow Rate FiO2 06/04/17 10:00 70 06/04/17 08:00 40 06/04/17 08:00 99.7 15 160/67 (98) 100 06/04/17 07:00 Mechanical Ventilator Trach Collar Intake and Output 06/04/17 06/04/17 06/05/17 08:00 16:00 00:00 Intake Total 1129 ml Output Total 650 ml Balance 479 ml Result Diagram: 06/02/17 0452 06/02/17 0452 Imaging Last Impressions Chest X-Ray 05/07/17 0400 Signed Impressions: Service Date/Time: Sunday, May 07, 2017 04:38 - CONCLUSION: 1. Stable Low-lying ETT with tip approximately 1 cm above the valerie. 2. Mild interval progression of bilateral airspace consolidation exaggerated by patient rotation. 3. Increased small left pleural effusion. Alejo De La Vega MD Abdomen/Pelvis CT 05/07/17 0000 Signed Impressions: Service Date/Time: Sunday, May 07, 2017 13:23 - CONCLUSION: 1. Large left pneumothorax. 2. Bilateral lower lobe consolidation and bilateral moderate size pleural effusions. 3. Significant soft tissue thickening of the right lateral chest wall and left gluteus muscle. 4. Mild ascites. The findings were called to Dr. Carney. Deangelo Zamora MD Head CT 05/06/17 0000 Signed Impressions: Service Date/Time: Saturday, May 06, 2017 04:18 - CONCLUSION: 1. Evolving large left-sided MCA territory infarct with minimally improved [id number] subfalcine shift. 2. No intercurrent hemorrhage or other acute abnormality. Alejo De La Vega MD Abdomen X-Ray 05/06/17 0000 Signed Impressions: Service Date/Time: Saturday, May 06, 2017 17:42 - CONCLUSION: Dobbhoff feeding tube tip near the gastroduodenal junction. Obdulio Simms MD Hip and Pelvis X-Ray 05/05/17 0000 Signed Impressions: Service Date/Time: Friday, May 05, 2017 10:59 - CONCLUSION: Left proximal femur trochanteric/subtrochanteric fracture lucency visualized. Postoperative changes. Choco Mustafa MD Chest CT 04/30/17 0000 Signed Impressions: Service Date/Time: Sunday, April 30, 2017 09:20 - CONCLUSION: 1. Bilateral pulmonary infiltrates more pronounced within the lower lobes with tiny bilateral pleural effusions. Material seen filling the lower lobe bronchi bilaterally either related to purulent material or perhaps mucus plugging. Deangelo Wren Jr., MD Carotid Artery Ultrasound 04/24/17 0000 Signed Impressions: Service Date/Time: April 09:45 - CONCLUSION: 1. No hemodynamically significant carotid artery stenosis. Arnie Middleton MD Hip X-Ray 04/21/17 0000 Signed Impressions: Service Date/Time: Friday, April 21, 2017 11:36 - CONCLUSION: Fluoroscopic images during placement of intramedullary siomara left femur. Benja Ramsey MD Objective Remarks Gen: 76-year-old female, unresponsive. HEENT: mucous membranes moist. Neck: Trached. site clean and dry. Resp: unlabored. on ventilator. Cardiovascular: RRR. No murmurs, no JVD. GI/abdomen: Distended. Nontender. no guarding. Extremities: Warm bilaterally, edema lowers. Incision sites over left hip, site clean dry and intact. Neuro: On no sedation. Grimaces spontaneously, no eye opening. Dense right hemiplegia. Withdraws left upper extremity, Withdraws LLE. No change. Pupils 2 mm, react. A/P Assessment and Plan Neuro/Psych: Left MCA CVA - 12 mm of [id number] subfalcine herniation - right-sided hemiplegia Acute encephalopathy History CVA Continue Aspirin 325 mg by mouth daily. Patient was not a candidate for thrombolysis per discussion with neurology and radiology. Repeat head CT 05/05 showed slight improvement in the midline shift and mass effect Neurosurgery consulted 04/30- Dr. López, recommended conservative management Neurology following - Dr. Malave Cardiovascular: Hypertension As needed Antihypertensives to keep systolic blood pressure less than to 160 mmHg (when necessary IV labetalol and IV hydralazine) Started lisinopril 10 mg twice a day 05/31/17, with improved control now Echocardiogram 04/24 - EF 50 to 55%. Mild concentric LVH. Pulmonary: Acute hypoxic respiratory failure - aspiration possible HCAP Large left pneumothorax status post #10 Albanian chest tube 05/07 Ventilator bundle. Ipratropium/albuterol aerosols every 6 hours with albuterol aerosols every 2 hours Chest tube d/c'd 05/12 Daily SBTs. failing for apnea. will continue trials daily. GI/liver: Elevated transaminases Hypoalbuminemia Moderate to severe protein calorie malnutrition Continue PEG tube feeding with Glucerna 1.5 goal 45 cc an hour Lansoprazole 30 mg daily for GI regimen Docusate sodium 100 twice a day, Senokot 8.6 twice a day, polyethylene glycol 17 grams twice a day and lactulose 30 cc [address] abdomen/pelvis 05/07 - mild ascites. Large left hemothorax. Right greater than left pleural effusion. Endocrine: Diabetes mellitus Detemir 8 units subcutaneous daily. SSI high dose q4h. Holding glimepiride 4 mg by mouth daily /Renal/FEN: Hypokalemia Strict intake output, monitor and replete electrolytes, follow BUN/creatinine. Moser catheter placed for urinary retention on 04/26. Moser removed 05/19 with q6h straight cath. Moser replaced again due to persistent urinary retention. 05/31/17 Heme: Chronic Rivaroxaban use Leukocytosis Normocytic anemia Thrombocytosis Follow CBC and coags. On subcutaneous enoxaparin Hemoglobin currently stable. No indications for transfusion of blood proximally at this time ID: [id number] bacteremia Serratia/staph aureus pneumonia C glabrata UTI Citrobacter UTI Pertinent cultures Urine culture 04/26/17 sofie glabrata Blood culture 04/29/17 1 out of 4 bottles staph aureus Sputum culture 04/30/17 staph aureus and Serratia. Blood cultures 2, sputum 1 and urine 05/08 pending -> Serratia, treated. Urine 05/26: Citrobacter Ceftriaxone started 05/26, changed to Cefepime 05/27 based on sensitivity, stopped 06/03/17 MSK: Left Intertroch Hip Fx s/p IMN Vitamin D deficiency Prophylaxis: SCDs. Enoxaparin 40 mg sq daily-cleared by Dr. Malave. GI - lansoprazole Overall impression: Severe dominant hemisphere CVA. No improvement. Poor prognosis. Very difficult wean given age, comorbidities and deconditioning. PEG placed. No change in neuro status. Unable to place and little hope for any significant recovery. Level 1 Meg Mak MD Jun 04, 2017 12:09
--- NOTE | 2017-06-04 12:24 | HHI.HCPN ---
Reason for visit a. To assist with evaluation and management of symptoms including: Debility and pain. b. To assist medical decision maker(s) with: better understanding of current medical conditions; weighing benefits/burdens of medical treatment options; making medical treatment decisions. . Subjective/Interval History Mrs. Hein is a 76-year-old female with a past medical history of hypertension, diabetes mellitus and CVA who presented to the ED on 04/20/17 via EMS for evaluation of after a fall. Upon ED admission, random glucose 559. Patient underwent Left hip reduction and intramedullary nail fixation on 04/21/17. Clinical course complicated by large left MCA infarct with diffuse edema throughout the left MCA distribution. Neurology, Dr. Malave consulted. Patient not a candidate for intervention, not a candidate for IV TPA. As per neurology "Q[place] 4Id the prognosis with a stroke of the size is poor". Palliative care consulted for further clarifications of goals of care given poor prognosis. Interval course: Patient remains on ventilator support via tracheostomy, failing daily CPAP trials secondary to apnea. Currently at 40% FiO2. No improvement in neurological status. Patient observed with eyes open, not tracking or following any commands. Patient remains afebrile, stable hemodynamically. No new laboratory or imaging for review. Case discussed with Dr. Heaton, bedside RN and family medicine Dr. Bennett. . Family/friend interactions Family meeting with patient's daughter was scheduled for 06/03/17 at 1700 for further clarifications of goals of care given not improvement in neurological status. Patient's daughter did not show up. Follow-up telephone call to patient's daughter Normatopher message in voicemail. . Advance Directives Living Will: Never completed Health Care Surrogate: Never completed Durable Power of Tire Service Technician: Never completed Advance Directive Specifics Health Care Surrogate(s): No advance directives completed. As per [place] statute, healthcare proxy decision making falls to patient's only daughter Norma Salvador. . Documented care wishes: No living will completed. . Significant change in goals: Goals of care remain unchanged. Objective Vital Signs Date Time Temp Pulse Resp B/P (MAP) Pulse Ox O2 Delivery O2 Flow Rate FiO2 06/04/17 12:00 98.9 60 14 156/70 (98) 100 06/04/17 12:00 40 06/04/17 12:00 60 06/04/17 10:00 70 06/04/17 08:00 40 06/04/17 08:00 99.7 69 15 160/67 (98) 100 06/04/17 08:00 69 06/04/17 07:41 99 40 06/04/17 07:00 97 Mechanical Ventilator 50 Trach Collar 06/04/17 06:00 72 06/04/17 04:00 98.3 69 14 131/62 (85) 93 06/04/17 04:00 69 06/04/17 04:00 40 06/04/17 03:19 100 40 06/04/17 02:00 60 06/04/17 00:00 40 06/04/17 00:00 61 06/04/17 00:00 98.0 61 14 160/74 (102) 100 06/03/17 23:43 99 40 06/03/17 22:00 73 06/03/17 20:00 85 06/03/17 20:00 40 06/03/17 20:00 98.3 85 14 107/55 (72) 98 06/03/17 19:42 100 40 06/03/17 19:00 99 Mechanical Ventilator 40 Trach Collar 06/03/17 18:00 80 06/03/17 17:30 100 40 06/03/17 16:00 97.4 82 15 139/65 (89) 99 06/03/17 16:00 82 06/03/17 16:00 40 06/03/17 14:00 77 Intake & Output 06/04/17 06/04/17 07:00 19:00 Intake Total 1129 ml Output Total 650 ml Balance 479 ml Tube Feeding 529 ml Other 600 ml Output Urine Total 650 ml # Bowel Movements 1 Physical Exam CONSTITUTIONAL/GENERAL: This is an elderly female resting in bed in no acute distress. TUBES/LINES/DRAINS: PIV's. Tracheostomy, PEG tube, left soft wrist restraint. SKIN: No jaundice, rashes, or lesions. Ecchymoses on upper extremities. Skin temperature appropriate. Not diaphoretic. Surgical incision to left hip, open to air. Right leg with blister on medial aspect. NECK: Trachea midline. Supple. Tracheostomy in place. CARDIOVASCULAR: Regular rate and rhythm. Peripheral pulses symmetric. RESPIRATORY/CHEST: Symmetric, tracheostomy. Coarse breath sounds bilaterally, right more than left. GASTROINTESTINAL: Abdomen soft, round, mildly distended. Bowel sounds present. PEG tube in place. GENITOURINARY: Without palpable bladder distension. Leavitt inserted for skin protection. MUSCULOSKELETAL: Extremities without clubbing, cyanosis. Edema to all 4 extremities. Right hand worse than left hand. NEUROLOGICAL: Withdraws with LUE and LLE. Flaccid to right side. Not sedated. Eyes opening spontaneously, not to command, not tracking. PSYCHIATRIC: Unable to evaluate secondary to clinical condition. Appears calm. . Diagnostic Tests Laboratory Laboratory Tests Test 06/02/17 04:52 White Blood Count 11.9 TH/MM3 (4.0-11.0) Red Blood Count 3.32 MIL/MM3 (4.00-5.30) Hemoglobin 9.8 GM/DL (11.6-15.3) Hematocrit 30.7 % (35.0-46.0) Mean Corpuscular Volume 92.5 FL (80.0-100.0) Mean Corpuscular Hemoglobin 29.4 PG (27.0-34.0) Mean Corpuscular Hemoglobin Concent 31.8 % (32.0-36.0) Red Cell Distribution Width 17.6 % (11.6-17.2) Platelet Count 332 TH/MM3 (150-450) Mean Platelet Volume 8.8 FL (7.0-11.0) Neutrophils (%) (Auto) 68.3 % (16.0-70.0) Lymphocytes (%) (Auto) 22.3 % (9.0-44.0) Monocytes (%) (Auto) 6.2 % (0.0-8.0) Eosinophils (%) (Auto) 2.0 % (0.0-4.0) Basophils (%) (Auto) 1.2 % (0.0-2.0) Neutrophils # (Auto) 8.1 TH/MM3 (1.8-7.7) Lymphocytes # (Auto) 2.7 TH/MM3 (1.0-4.8) Monocytes # (Auto) 0.7 TH/MM3 (0-0.9) Eosinophils # (Auto) 0.2 TH/MM3 (0-0.4) Basophils # (Auto) 0.1 TH/MM3 (0-0.2) CBC Comment AUTO DIFF Differential Total Cells Counted 100 Neutrophils % (Manual) 63 % (16-70) Band Neutrophils % 11 % (0-6) Lymphocytes % 15 % (9-44) Monocytes % 4 % (0-8) Eosinophils % 3 % (0-4) Neutrophils # (Manual) 9.3 TH/MM3 (1.8-7.7) Metamyelocytes 1 % (0-1) Myelocytes 3 % (0-0) Differential Comment FINAL DIFF MANUAL Platelet Estimate NORMAL (NORMAL) Platelet Morphology Comment NORMAL (NORMAL) Blood Urea Nitrogen 33 MG/DL (7-18) Creatinine 0.29 MG/DL (0.50-1.00) Random Glucose 231 MG/DL (74-106) Total Protein 6.2 GM/DL (6.4-8.2) Albumin 1.7 GM/DL (3.4-5.0) Calcium Level 7.8 MG/DL (8.5-10.1) Magnesium Level 2.1 MG/DL (1.5-2.5) Alkaline Phosphatase 845 U/L (45-117) Aspartate Amino Transf (AST/SGOT) 50 U/L (15-37) Alanine Aminotransferase (ALT/SGPT) 36 U/L (10-53) Total Bilirubin 0.4 MG/DL (0.2-1.0) Sodium Level 136 MEQ/L (136-145) Potassium Level 4.6 MEQ/L (3.5-5.1) Chloride Level 100 MEQ/L (98-107) Carbon Dioxide Level 27.9 MEQ/L (21.0-32.0) Anion Gap 8 MEQ/L (5-15) Estimat Glomerular Filtration Rate 226 ML/MIN (>89) Result Diagram: 06/02/17 0452 06/02/17 0452 Procedures * 05/16/17 -PEG tube placement * 05/15/17 -tracheostomy placement * 05/08/17 -left-sided chest tube/pigtail * 04/30/17 -endotracheal intubation * 04/21/17 -Left hip reduction and intramedullary nail fixation . Assessment and Plan Disease Oriented Problem List: (1) Acute respiratory failure (2) Acute CVA (cerebrovascular accident) (3) Pneumonia (4) Atrial fibrillation with RVR (5) Hypertension (6) Hip fracture Symptom Scale: (1) Shortness of breath 0-10 Scale: Unable to quantify Comment: Currently trached on mechanical ventilation. Failing SBT due to apnea. (2) Debility 0-10 Scale: Unable to quantify Comment: Progressive. (3) Pain 0-10 Scale: Unable to quantify Comment: Secondary to recent surgical intervention Pertinent Non-Medical Issues Psychosocial: Patient is originally from [place]. Residing in [place] up until 2013 she moved to [place] to live with only daughter Trice. Patient is a , in 2006. Spiritual: No sikhism affiliation. Legal: No advance directives completed. Ethical issues impacting care: Patient unable to participating in medical decision-making secondary to clinical condition. Patient's daughter acting as healthcare proxy decision maker. . Important Contacts Daughter Norma Salvador . . Prognosis Mrs. Hein needs a 76-year-old female with a past medical history of hypertension, diabetes mellitus and prior CVA. Presented with left hip fracture , underwent ORIF. Clinical course complicated by large left MCA infarct with edema. Overall prognosis is poor for a meaningful neurological recovery or long -term survival given acute stroke, chronic ongoing comorbidities and advanced age. Patient appears hospice appropriate should family elects comfort-directed care. . Code Status: Full Code Plan * CODE STATUS: FULL CODE. Risks, benefits and limitations of CPR given patient' s clinical condition and poor prognosis has been discussed in multiple occasions with patient's daughter Trice. * HEALTHCARE DECISION-MAKING: Patient unable to participate in medical decision- making secondary to clinical condition given severe large stroke. No advance directives completed, patient is . As per [place] statute, healthcare proxy decision-making falls to patient's only daughter Trice Salvador. * GOALS OF CARE: 06/04/17 -Patient's daughter acting as HCP electing to continue aggressive management to include full code. Case has been discussed with Dr. Heaton, rifle case repairer Doris Enriquez and family medicine Dr. Bennett. Difficult disposition, long-term plans for this patient are impacted by her psychosocial situation, no coverage/no payer source for long-term placement or rehab. Daughter verbalized inability to receive patient at home, rifle case repairer following. Pending transfer to [facility]. Meeting with patient's daughter was a scheduled for 06/03/17 at 17:00 for further clarifications of goals of care given not improvement in neurological status and difficult disposition. Daughter did not show up for meeting. Palliative care will continue to follow-up as needed. * SYMPTOMS: = Shortness of breath, multifactorial. Secondary to altered mental status/CVA, pneumonia, lethargy. Now trached and on mechanical ventilation. Patient failing SBT due to apnea. = Pain, secondary to recent surgical intervention. = Debility, progressive. Likely to continue to worsen given recent acute stroke and additional complications. * Case discussed with Dr. Heaton, rifle case repairer Doris Enriquez and family medicine Dr. Bennett * Palliative care contact information has been provided to patient's daughter. * Palliative care will continue to follow-up for further clarifications of goals of care as patient's clinical condition continues to evolve. . Time Spent Total Floor Time (mins): 29 (Total time to include review of medical records, physical exam, case discussion with attending Dr. Bennett, Dr Heaton and rifle case repairer. ) >50% Counseling/Coord of Care: Yes Attestation To help prompt me to consider important information that might be impacting today's encounter and assessment, information from prior notes written by myself or my colleagues may have been "brought forward" into today's note. My signature on this note, however, is an attestation that I personally performed the exam, history, and/or decision-making noted today, and, unless otherwise indicated, the interactions with patient, family, and staff as well as the review of records all occurred today. I also attest that the listed assessment and stated plan reflect my best clinical judgment today based on the combination of historical information, prior notes, and today's exam/ interactions. When time spent is documented, it refers only to time spent today by the signer, or if indicated, combined time spent today by collaborating physician/nurse practitioner. Ashly Steven Jun 04, 2017 12:24
--- NOTE | 2017-06-04 12:33 | HHI.FPPN ---
Subjective Remarks Acute events overnight. Per notes of restaurant lead, patient failed SBT due to apnea yesterday. Palliative, restaurant lead, and family medicine land a meeting yesterday to discuss the future, however the daughter did not show up. Objective Vitals Vital Signs Date Time Temp Pulse Resp B/P (MAP) Pulse Ox O2 Delivery O2 Flow Rate FiO2 06/04/17 12:00 98.9 60 14 156/70 (98) 100 06/04/17 12:00 40 06/04/17 12:00 60 06/04/17 10:00 70 06/04/17 08:00 40 06/04/17 08:00 99.7 69 15 160/67 (98) 100 06/04/17 08:00 69 06/04/17 07:41 99 40 06/04/17 07:00 97 Mechanical Ventilator 50 Trach Collar 06/04/17 06:00 72 06/04/17 04:00 98.3 69 14 131/62 (85) 93 06/04/17 04:00 69 06/04/17 04:00 40 06/04/17 03:19 100 40 06/04/17 02:00 60 06/04/17 00:00 40 06/04/17 00:00 61 06/04/17 00:00 98.0 61 14 160/74 (102) 100 06/03/17 23:43 99 40 06/03/17 22:00 73 06/03/17 20:00 85 06/03/17 20:00 40 06/03/17 20:00 98.3 85 14 107/55 (72) 98 06/03/17 19:42 100 40 06/03/17 19:00 99 Mechanical Ventilator 40 Trach Collar 06/03/17 18:00 80 06/03/17 17:30 100 40 06/03/17 16:00 97.4 82 15 139/65 (89) 99 06/03/17 16:00 82 06/03/17 16:00 40 06/03/17 14:00 77 I/O 06/03/17 06/03/17 06/03/17 06/04/17 06/04/17 06/04/17 07:00 15:00 23:00 07:00 15:00 23:00 Intake Total 1158 ml 1093 ml 1129 ml Output Total 725 ml 1300 ml 650 ml Balance 433 ml -207 ml 479 ml IV Total 100 ml Tube Feeding 458 ml 393 ml 529 ml Other 600 ml 700 ml 600 ml Output Urine Total 725 ml 1300 ml 650 ml # Bowel Movements 2 3 1 Result Diagram: 06/02/1745106/02/17451 Objective Remarks CONSTITUTIONAL/GEN: Nonverbal, lying in bed with tracheostomy and PEG tubes in place with head turned to left. Patient's eyes are open today, still grabbing and moving her left hand, but not following commands. HEAD: Normocephalic. Atraumatic. Right side facial droop. LUNGS: On vent, has not been tolerating CPAP trials. Coarse breath sounds bilaterally but moving air well CARDIOVASCULAR: Regular rate and rhythm. Pitting edema of hands 1+ on left, Pitting edema of R foot 2+, no pitting edema on L leg and foot. GI/ABD: active BS w/o guarding or rebound. no grimacing with palpation. Glucerna 1.5 tube feed @ 45ml/hr. 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 Moves left UE and LE spontaneously and intermittently. MUSC: SCDs on bilateral lower extremities. Pedal pulses present. SKIN: Sacral pressure ulcer extends from anus to coccyx. Procedures ORIF 04/21/17 Intubation 04/30/17 A/P Assessment and Plan 76 y/o female with HTN, DM, CVA admitted for DKA and hip fracture. Sadly, patients with hip fractures have other problems and have a high chance of fatal conditions near the time of their fractures. Hip fractures are often a marker for other frailty. Now with massive left MCA stroke, right hemiplegia and midline shift resolving. Neurology and restaurant lead consulted. Poor prognosis per neurology. Working with palliative care and daughter for goals of care. Now completing treatment of UTI and attempting to wean off vent. Discharge Planning Pending stroke progression and discussion for goals of care She has no Insurance. Medicaid was applied for and she cannot have this as she is not a [place] citizen and has not lived in the [place] long enough. She cannot go to a vent facility nor a SNF without insurance. Case management explained that to her daughter. Per her daughter, she continues to believe she will improve back to her norm at some point and wants to keep her with aggressive measures. She is looking for rehab as she believes her mother can improve. Problem List: (1) Acute CVA (cerebrovascular accident) ICD Codes: I63.9 - Cerebral infarction, unspecified Status: Acute Plan: -Consulted restaurant lead, appreciate recs: s/p Tracheostomy 05/15 and PEG tube insertion 05/16 with poor prognosis -wean off vent as tolerated -Neurosurgery consulted -Recommended conservative management -Newspaper Carriers Supervisor consulted and appreciated: -Tube feeds: Glucerna 1.5 tube feed @ 45ml/hr 24 hours a day for diet via PEG tube -maintenance fluid through PEG tube: free water 300cc q6h as she needs maintenance fluid of about 95 ml/hr -Physical therapy consulted and appreciated -Consulted palliative care-appreciate recs. appreciate help in talking to her daughter -Daughter continues to want aggressive care. Wishes to continue aggressive medical treatment despite prognosis -Neurology consulted-appreciate recs: Poor prognosis -Rectal ASA -Lovenox 40mg daily History and imaging: Patient found minimally responsive with neurological deficits around 0820 04/24. Stat CT of head was ordered, which showed large left MCA infarct. Diffuse edema throughout the left MCA distribution, suggested completed infarct. This was discussed and was not a candidate for intracranial intervention. CT (04/30): Reduction in midline shift to 11mm. Unchanged large left MCA infarction. CT head (05/06) shows: Evolving large left-sided MCA territory infarct with minimally improved [id number] subfalcine shift. No intercurrent hemorrhage or other acute abnormality. Echocardiogram- The left ventricular systolic function is low normal with an estimated ejection fraction in the range of 50-55%. Mild concentric left ventricular hypertrophy. Normal left ventricular size. [id number] mitral valve regurgitation. Carotid Artery US- No hemodynamically significant carotid stenosis (2) On mechanically assisted ventilation ICD Codes: Z99.11 - Dependence on respirator [ventilator] status Plan: Impression: s/p trach procedure 05/15. Currently on vent. -Continue weaning trials as tolerated (3) UTI (urinary tract infection) ICD Codes: N39.0 - Urinary tract infection, site not specified Status: Resolved Plan: -cefepime 1 g every 12 hours (05/27 start, Day #03/07 today) History: - 05/25 Nurse reported malodorous urine; patient had required straight cath's q6h for the previous 5 days. Leavitt ordered. - UA: + leuk est, + nitrate, + WBC - Continue Leavitt cath - Urine culture grew Citrobacter freundii resistant to ceftriaxone - Rocephin 1g IV q24h (05/26 - 05/27) changed to cefepime (given low JEFFREY <2). Plan for cefepime 1 g every 12 hours for 7 to 10 days. (05/27 - present) (4) Anemia ICD Codes: D64.9 - Anemia, unspecified Status: Chronic Plan: s/p 1u of PRBC on 05/29/17. Hgb stable since then. Hemoccult negative. - monitor H&H (5) Urinary retention ICD Codes: R33.9 - Retention of urine, unspecified Status: Acute Plan: -Inserted Leavitt cath because patient was retaining urine with intermittent cath's (6) Sacral decubitus ulcer ICD Codes: L89.159 - Pressure ulcer of sacral region, unspecified stage Plan: Patient with small sacral decubitus ulcer over the coccyx. -Wound care consult appreciated: 1. Please cleanse buttock, coccyx, and sacral areas gently with soap and water and apply thick layer of Calazime barrier cream BID and PRN and leave wound open to air for now. 2. Order pressure relieving support surface mattress or bed such as halifax airapy or K-4 bed from [facility]. 3. Continue to turn patient every 2 hours or PRN for comfort. 4. Please do not put thick cloth underpads under patient for turning purposes. Please use flat turn sheet and ultra sorb pads for incontinence management. (7) Diarrhea ICD Codes: R19.7 - Diarrhea, unspecified Status: Resolved Plan: Nurse reported diarrhea. -C diff stool PCR negative (8) Type 2 diabetes mellitus ICD Codes: E11.9 - Type 2 diabetes mellitus without complications Status: Chronic Plan: - Continue Levemir 7AM + 7 PM for hyperglycemia, fingersticks have improved - Continue low dose SSI, goal 140-180 -Glucerna for PEG tube feedings @ 45 ml/hr History: Admitted for DKA which has now resolved. Hemoglobin A1C is 12.9. Diabetes Type I is uncontrolled. 05/22 - 8PM stating pt BG level at 60 and hypoglycemia protocol started, then Levemir 5AM + 5PM until raised on 9/27 (9) Hypertension ICD Codes: I10 - Essential (primary) hypertension Status: Acute Plan: BPs at goal overnight -Antihypertensives to keep SBP<180 -Lasix or Bumex for diuresis as required (10) Atrial fibrillation ICD Codes: I48.91 - Unspecified atrial fibrillation Status: Resolved Plan: Hx of intermittent Afib. Resolved with administration of Lopressor. -Continue to monitor -Lopressor PRN (11) Hip fracture ICD Codes: S72.009A - Fracture of unspecified part of neck of unspecified femur , initial encounter for closed fracture Status: Resolved Plan: S/P left hip reduction and intramedullary nail fixation on 04-21-17 -Consulted orthopedics-appreciate recs * WBAT * Daily dressing changes -Calcium/Vitamin D -Fluids as above -Tylenol, morphine PRN pain, but it is difficult to tell if she is having pain (12) Fluids, Electrolytes, and Nutrition Status: Acute Plan: Fluids: through PEG tube Electrolyte: on electrolyte protocol Nutrition: Glucerna tube feeds and free water DVT ppx: SCDs/lovenox 40 mg daily CVA ppx: aspirin 325 mg GI ppx: Lansoprazole Colace, fleet enema mineral oil PRN Problem Qualifiers (1) UTI (urinary tract infection): Qualified Codes: N39.0 - Urinary tract infection, site not specified (2) Sacral decubitus ulcer: Qualified Codes: L89.151 - Pressure ulcer of sacral region, stage 1 (3) Type 2 diabetes mellitus: Qualified Codes: E11.9 - Type 2 diabetes mellitus without complications (4) Hypertension: Qualified Codes: I10 - Essential (primary) hypertension (5) Atrial fibrillation: Qualified Codes: I48.0 - Paroxysmal atrial fibrillation (6) Hip fracture: Tova Ortiz MD R2 Jun 04, 2017 12:33
[2017-06-04] MEDS: hydrALAZINE HCL 20 MG/ML VIAL IV PUSH PRN (17:04)
[2017-06-05] VITALS (17 sets, daily range): BP systolic 134–170; BP diastolic 62–73; PULSE 61–91; RESP 14–24; TEMP 98.2–100.8; O2SAT 95–100
[2017-06-05] MEDS: FREE WATER G-TUBE SCH ×4 (06:00→17:40)
[2017-06-05 06:25] LABS: AUTOMATED NEUTROPHIL # 5.3 TH/MM3 (1.8-7.7); BASOPHIL # 0.1 TH/MM3 (0-0.2); BASOPHIL % 1.1 % (0.0-2.0); EOSINOPHIL # 0.3 TH/MM3 (0-0.4); EOSINOPHIL % 3.3 % (0.0-4.0); HEMATOCRIT 27.5 % (35.0-46.0); LYMPH % 35.2 % (9.0-44.0); LYMPHOCYTE # 3.4 TH/MM3 (1.0-4.8); MEAN CELL VOLUME 92.1 FL (80.0-100.0); MEAN CORPUSCULAR HEMOGLOBIN 30.2 PG (27.0-34.0); MEAN CORPUSCULAR HGB CONC 32.8 % (32.0-36.0); MEAN PLATELET VOLUME 9.1 FL (7.0-11.0); MONO % 5.9 % (0.0-8.0); MONOCYTE # 0.6 TH/MM3 (0-0.9); NEUT % 54.5 % (16.0-70.0); PLATELET COUNT 338 TH/MM3 (150-450); RED BLOOD COUNT 2.98 MIL/MM3 (4.00-5.30); RED CELL DISTRIBUTION WIDTH 17.1 % (11.6-17.2); WHITE BLOOD COUNT 9.8 TH/MM3 (4.0-11.0)
--- NOTE | 2017-06-05 08:33 | HHI.CCPN ---
Subjective Remarks/Hospital Course Note for 05/30/17: 04/24: 76-year-old female with a medical history significant for prior stroke, diabetes mellitus who was admitted with DKA and a hip fracture for which she underwent ORIF on 04/21. Patient developed altered mental status and was last noted to be okay around 5:30 AM. Subsequently there was a change in her mental status and she was noted to not be moving her right side for which stroke alert was called. Head CT showed large left MCA territory ischemic infarct with edema. Patient was transferred to the ICU by family medicine service in the critical care consult was requested. I evaluated the patient following arrival to the ICU. At that time she was laying in bed with her eyes open however not following commands and had a dense right hemiplegia. Patient was also evaluated by Dr. Malave from neurology. I further discussed current event with patient's daughter following her arrival to the ICU. Per the daughter patient has been living with her since her stroke in 2014 and does ambulate however has been having problems with memory and incontinence as well as gait difficulties. She does not feel patient would want intubation or tracheostomy or PEG tube. 04/25: Patient remains encephalopathic, awake though not following commands consistently. Dense right hemiplegia persists. Appears to be awake enough to protect airway currently. Patient's daughter rescinded DNR and made a full code last evening. 04/26: Remains encephalopathic, not following commands. On Dobbhoff for tube feeds at 30 cc per hour. Had urinary retention and drained 2 L of urine after placing Moser catheter today. CT head done this morning with large left MCA territory infarct with left to right midline shift and significant cerebral edema. Hyperglycemia noted. Patient given mannitol earlier for increasing cerebral edema. 04/27: Remains encephalopathic, not following commands. On Dobbhoff tube feeds at 30 cc per hour. When into A. fib with RVR last night which responded with Lopressor 5 mg IV 1 dose. 04/28: Remains encephalopathic, arousable, not following commands. Moves left upper extremity spontaneously. Tolerating Dobbhoff tube feeds. Remains on nasal cannula. 04/29: Encephalopathic, eyes be arousable, moves left upper extremity spontaneously and occasionally opens eyes. Dense right hemiplegia and aphasia persists. On nasal cannula. Dobbhoff tube feeds being advanced. Patient was transfused 1 unit PRBCs yesterday. Urine culture with yeast from yesterday for which fluconazole being started. Had brief run of A. fib with RVR which improved with Lopressor IV, currently in sinus rhythm. 04/30: Worsening hypoxemic respiratory failure, currently on partial nonrebreather. Remains lethargic. WBC count increased from 14.6 today 20.7. Chest x-ray shows bilateral worsening infiltrates and small pleural effusions. Sodium 154, weight up by 8 KG. Albumin 1 mg Bumex 1. Also one dose of albumin. Remains in sinus tachycardia. Tmax 101.3 05/01: Patient was intubated yesterday for lack of airway protection, and severe hypoxemic respiratory failure from aspiration pneumonia involving multiple lobes. Patient is on the vent lethargic, no spontaneous eye opening. Chest x- ray remains unchanged. Remains intermittently febrile Tmax 101.3. WBC count improving 05/02: Remains critically ill with no improvement in mental status. Spiking fever of 101.7. Blood culture and sputum culture with staph aureus sputum also growing GNR, WBC count 22,000 now indicating worsening sepsis. Daughter still requesting aggressive care. Palliative care is following 05/03: S/P large area dominant hemisphere CVA. No neurological improvement. Now with pneumonia (infiltrate, fever, leukocytosis) and appropriate abx coverage. She will have a hard time surviving the hip fx, CVA, and pneumonia. Palliative Care needs to be a mainstay of our plan. 05/04: No improvement in neuro status. Sputum C&S allows us to narrow abx coverage to levaquin alone. Lungs remain quite congested. Enteral nutrition tolerated. 05/05: No improvement in neuro status. Moves left arm spontaneously. Flaccid right side. Unresponsive. Persistent mild hypoglycemia - will cut Levemir 50%. Abdomen more distended, check KUB. 05/06: CT head with massive left MCA infarction and > 1 cm shift in right handed woman. She opens eyes, does not track. 05/07: Patient open eyes. Attempts to respond. Ukrainian speaking. Tolerating tube feeds. Positive bowel movement. Volume overloaded. 05/08: Tmax 99.4. Potassium being replaced. Ultrasound gallbladder currently pending. Transaminases are trending downward. Gently diurese. 05/09: Alk phos decreasing. Remains with good urine output. Neurological status not improving. 05/10: Fixed neuro deficit unchanged. Profound CVA. 05/11: Appears to track with eyes today. No improvement in motor function. Remains very edematous, diuretics doubled. 05/12: Continued thick secretions. Afebrile, leukocytosis resolved. 05/13: CT head with completed left MCA stroke, persistent edema and 5 mm shift away. Does not last long on SBTs - major decision now is trach/PEG. 05/14: Daughter has decided to proceed with trach and PEG. I have been pessimistic with her about chances for a meaningful recovery. 05/15: Plan for trach today. No change in neuro status. Still ventilator dependent. 05/16: Trach completed. Await PEG and disposition. 05/17: PEG placed 05/16. Start TFs today after nutrition consult. Work to place patient. 05/18: No improvement. Does open eyes, no focus or tracking. Completed large dominant (left) hemisphere CVA in right handed woman with severe deficit. Medicaid pending status, [employer] is following. 05/19: no improvements in neuro exam. ready for LTAC. will d/c moser and rectal tubes. 05/20: no changes or improvements. very difficult placement due to patient not [place] citizen. 05/21: no improvements. resting on vent overnight due to distress. 05/22: no neurologic changes. no improvements. attempted T-piece which failed after 10 minutes. 05/23: no improvements. poor prognosis. poor neuro exam. still failing weaning trials. 05/24: no improvements or changes. still failing t-piece trials. 05/25: No acute changes of improvement overnight. Failed CPAP due to apnea, tried again currently tolerating. Neurological exam unchanged. 05/26: No improvement in neurological function. 05/27: Patient has required Moser catheter because of breakdown of skin on upper thighs and groin. Urine has become infected, will treat. 05/28: Some drainage from around trach (placed 2 weeks ago). Will change out trach tube and inspect neck wound. I&O straight cath q6h order entered 05/17. 05/29: No improvement, remains obtunded. Failed CPAP trials yesterday and again today due to apnea. Moser placed due to persistent urinary retention 05/30: Obtunded, unresponsive. Failed SBTs, remains ventilator dependent. 05/31: Patient continues to fail SBT failed yesterday due to apnea. Neuro exam remains unchanged. 06/01: No acute changes overnight, 06/02: no changes. ekg done overnight for ? EKG changes seen on telemetry which were not visualized on EKG. Subjective 06/03: no improvements or changes. had long conversation with daughter yesterday. only facility which would accept patient is in [place] and daughter is refusing to allow patient to go there because it is "too far away." Daughter continues to push for aggressive care despite no improvements, and resistant to Hospice. Patient does not need acute inpatient therapy but lacks funding for appropriate disposition. 06/04: No acute events overnight, failed SBT due to apnea. 06/05: No acute events, continues to fail spontaneous breathing trials. Unable to wean Objective Vital Signs Date Time Temp Pulse Resp B/P (MAP) Pulse Ox O2 Delivery O2 Flow Rate FiO2 06/05/17 07:18 98 40 06/05/17 06:00 70 06/05/17 04:00 98.2 14 146/68 (94) 06/04/17 19:00 Mechanical Ventilator Trach Collar Intake and Output 06/05/17 06/05/17 06/06/17 08:00 16:00 00:00 Intake Total 1107 ml Output Total 700 ml Balance 407 ml Result Diagram: 06/05/17 0538 06/02/17 0452 Imaging Last Impressions Chest X-Ray 05/07/17 0400 Signed Impressions: Service Date/Time: Sunday, May 07, 2017 04:38 - CONCLUSION: 1. Stable Low-lying ETT with tip approximately 1 cm above the valerie. 2. Mild interval progression of bilateral airspace consolidation exaggerated by patient rotation. 3. Increased small left pleural effusion. Alejo De La Vega MD Abdomen/Pelvis CT 05/07/17 0000 Signed Impressions: Service Date/Time: Sunday, May 07, 2017 13:23 - CONCLUSION: 1. Large left pneumothorax. 2. Bilateral lower lobe consolidation and bilateral moderate size pleural effusions. 3. Significant soft tissue thickening of the right lateral chest wall and left gluteus muscle. 4. Mild ascites. The findings were called to Dr. Carney. Deangelo Zamora MD Head CT 05/06/17 0000 Signed Impressions: Service Date/Time: Saturday, May 06, 2017 04:18 - CONCLUSION: 1. Evolving large left-sided MCA territory infarct with minimally improved [id number] subfalcine shift. 2. No intercurrent hemorrhage or other acute abnormality. Alejo De La Vega MD Abdomen X-Ray 05/06/17 0000 Signed Impressions: Service Date/Time: Saturday, May 06, 2017 17:42 - CONCLUSION: Dobbhoff feeding tube tip near the gastroduodenal junction. Obdulio Simms MD Hip and Pelvis X-Ray 05/05/17 0000 Signed Impressions: Service Date/Time: Friday, May 05, 2017 10:59 - CONCLUSION: Left proximal femur trochanteric/subtrochanteric fracture lucency visualized. Postoperative changes. Choco Mustafa MD Chest CT 04/30/17 0000 Signed Impressions: Service Date/Time: Sunday, April 30, 2017 09:20 - CONCLUSION: 1. Bilateral pulmonary infiltrates more pronounced within the lower lobes with tiny bilateral pleural effusions. Material seen filling the lower lobe bronchi bilaterally either related to purulent material or perhaps mucus plugging. Deangelo Wren Jr., MD Carotid Artery Ultrasound 04/24/17 0000 Signed Impressions: Service Date/Time: April 09:45 - CONCLUSION: 1. No hemodynamically significant carotid artery stenosis. Arnie Middleton MD Hip X-Ray 04/21/17 0000 Signed Impressions: Service Date/Time: Friday, April 21, 2017 11:36 - CONCLUSION: Fluoroscopic images during placement of intramedullary siomara left femur. Benja Ramsey MD Objective Remarks Gen: 76-year-old female, unresponsive. HEENT: mucous membranes moist. Neck: Trached. site clean and dry. Resp: unlabored. on ventilator. Cardiovascular: RRR. No murmurs, no JVD. GI/abdomen: Distended. Nontender. no guarding. Extremities: Warm bilaterally, edema lowers. Incision sites over left hip, site clean dry and intact. Neuro: On no sedation. Grimaces spontaneously, no eye opening. Dense right hemiplegia. Withdraws left upper extremity, Withdraws LLE. No change. Pupils 2 mm, react. A/P Assessment and Plan Neuro/Psych: Left MCA CVA - 12 mm of [id number] subfalcine herniation - right-sided hemiplegia Acute encephalopathy History CVA Continue Aspirin 325 mg by mouth daily. On admission, patient was not a candidate for thrombolysis per discussion with neurology and radiology. Repeat head CT 05/05 showed slight improvement in the midline shift and mass effect Neurosurgery consulted 04/30- Dr. López, recommended conservative management. Neurology Dr. Malave has followed Cardiovascular: Hypertension As needed Antihypertensives to keep systolic blood pressure less than to 160 mmHg (when necessary IV labetalol and IV hydralazine) Lisinopril 10 mg twice a day 05/31/17, with improved control now Echocardiogram 04/24 - EF 50 to 55%. Mild concentric LVH. Pulmonary: Acute hypoxic respiratory failure - aspiration possible HCAP Large left pneumothorax status post #10 German chest tube 05/07 Acute now chronic respiratory failure Ventilator bundle. Ipratropium/albuterol aerosols every 6 hours with albuterol aerosols every 2 hours Chest tube d/c'd 05/12 Daily SBTs. failing for apnea. will continue attempts GI/liver: Elevated transaminases Hypoalbuminemia Moderate to severe protein calorie malnutrition Continue PEG tube feeding with Glucerna 1.5 goal 45 cc an hour Lansoprazole 30 mg daily for GI regimen Docusate sodium 100 twice a day, Senokot 8.6 twice a day, polyethylene glycol 17 grams twice a day and lactulose 30 cc [address] abdomen/pelvis 05/07 - mild ascites. Large left hemothorax. Right greater than left pleural effusion. Endocrine: Diabetes mellitus Detemir 8 units subcutaneous daily. SSI high dose q4h. Holding glimepiride 4 mg by mouth daily /Renal/FEN: Hypokalemia Strict intake output, monitor and replete electrolytes, follow BUN/creatinine. Moser catheter placed for urinary retention on 04/26. Moser removed 05/19 with q6h straight cath. Moser replaced again due to persistent urinary retention. 05/31/17 Heme: Chronic Rivaroxaban use Leukocytosis Normocytic anemia Thrombocytosis Follow CBC and coags. On subcutaneous enoxaparin Hemoglobin currently stable. No indications for transfusion of blood proximally at this time ID: MSSA bacteremia Serratia/staph aureus pneumonia C glabrata UTI Citrobacter UTI Pertinent cultures Urine culture 04/26/17 sofie glabrata Blood culture 04/29/17 1 out of 4 bottles staph aureus Sputum culture 04/30/17 staph aureus and Serratia. Blood cultures 2, sputum 1 and urine 05/08 pending -> Serratia, treated. Urine 05/26: Citrobacter Ceftriaxone started 05/26, changed to Cefepime 05/27 based on sensitivity, stopped 06/03/17 MSK: Left Intertroch Hip Fx s/p IMN Vitamin D deficiency Prophylaxis: SCDs. Enoxaparin 40 mg sq daily-cleared by Dr. Malave. GI - lansoprazole Overall impression: Severe dominant hemisphere CVA. No improvement. Poor prognosis. Very difficult wean given age, comorbidities and deconditioning. PEG placed. No change in neuro status. Unable to place and little hope for any significant recovery. Level 1 Meg Mak MD Jun 05, 2017 08:33
[2017-06-05] MEDS: FUROSEMIDE 40 MG/5 ML UNIT DOSE CUP NG SCH (09:30)
[2017-06-05] MEDS: LANSOPRAZOLE SOLUTAB 30 MG TAB NG SCH (09:30)
[2017-06-05] MEDS: CHOLECALCIFEROL (VIT D3) 5000 UNIT CAP PO SCH (09:30)
[2017-06-05] MEDS: DOCUSATE SODIUM 100 MG/10 ML UDC PO SCH ×2 (09:30→21:26)
[2017-06-05] MEDS: CALCIUM/VITAMIN D 250 MG/125 U TAB PO SCH ×3 (09:30→17:39)
[2017-06-05] MEDS: ASPIRIN 325 MG TAB DOBHOFF SCH (09:30)
[2017-06-05] MEDS: LISINOPRIL 10 MG TAB PO SCH ×2 (09:31→21:26)
[2017-06-05] MEDS: SODIUM CHLORIDE 0.9% FLUSH 5 ML FLUSH IV FLUSH SCH ×2 (09:32→21:27)
[2017-06-05] MEDS: INSULIN DETEMIR 100 UNITS/ML VIAL SQ SCH ×2 (09:35→21:45)
[2017-06-05] MEDS: INSULIN ASPART SUPPLEMENTAL SCALE SQ SCH ×4 (09:40→21:46)
[2017-06-05] MEDS: ENOXAPARIN SODIUM 40 MG/0.4 ML SYRINGE SQ SCH (09:41)
[2017-06-05 09:49] LABS: BANDS 3 % (0-6); LYMPHOCYTES 33 % (9-44); METAMYELOCYTES 1 % (0-1); MONOCYTES 5 % (0-8); MYELOCYTES 2 % (0-0); NEUTROPHIL # MANUAL DIFF 5.7 TH/MM3 (1.8-7.7); POLYS (SEG NEUTROPHILS) 52 % (16-70)
--- NOTE | 2017-06-05 11:46 | HHI.FPPN ---
Subjective Remarks No acute events overnight. Patient continues to fail weaning trials with no change. There continues to be no successful correspondence with the family in terms of future plans for the patient. (Tova Ortiz MD R2) Objective Vitals Vital Signs Date Time Temp Pulse Resp B/P (MAP) Pulse Ox O2 Delivery O2 Flow Rate FiO2 06/05/17 07:18 98 40 06/05/17 06:00 70 06/05/17 04:00 100 40 06/05/17 04:00 40 06/05/17 04:00 98.2 72 14 146/68 (94) 98 06/05/17 04:00 72 06/05/17 02:00 71 06/05/17 00:00 40 06/05/17 00:00 98.3 62 14 148/67 (94) 100 06/05/17 00:00 61 06/04/17 23:58 100 40 06/04/17 22:00 72 06/04/17 20:00 98.0 61 14 157/74 (101) 100 06/04/17 20:00 40 06/04/17 20:00 61 06/04/17 19:47 98 40 06/04/17 19:00 100 Mechanical Ventilator 40 Trach Collar 06/04/17 18:00 82 06/04/17 16:27 100 40 06/04/17 16:00 69 06/04/17 16:00 40 06/04/17 16:00 98.7 69 14 151/0 (50) 100 06/04/17 14:00 62 06/04/17 12:53 40 06/04/17 12:48 99 40 06/04/17 12:00 98.9 60 14 156/70 (98) 100 06/04/17 12:00 40 06/04/17 12:00 60 I/O 06/04/17 06/04/17 06/04/17 06/05/17 06/05/17 06/05/17 07:00 15:00 23:00 07:00 15:00 23:00 Intake Total 1129 ml 1177 ml 1107 ml Output Total 650 ml 975 ml 700 ml Balance 479 ml 202 ml 407 ml Tube Feeding 529 ml 417 ml 507 ml Other 600 ml 760 ml 600 ml Output Urine Total 650 ml 975 ml 700 ml # Bowel Movements 1 0 0 (Tvoa Ortiz MD R2) Result Diagram: 06/05/17 0538 06/02/17 0452 Objective Remarks CONSTITUTIONAL/GEN: Nonverbal, lying in bed with tracheostomy and PEG tubes in place with head turned to left. Patient's eyes are open today, still grabbing and moving her left hand, but not following commands. HEAD: Normocephalic. Atraumatic. Right side facial droop. LUNGS: On vent, has not been tolerating CPAP trials. Coarse breath sounds bilaterally but moving air well CARDIOVASCULAR: Regular rate and rhythm. Pitting edema of hands 1+ on left, Pitting edema of R foot 2+, no pitting edema on L leg and foot. GI/ABD: active BS w/o guarding or rebound. no grimacing with palpation. Glucerna 1.5 tube feed @ 45ml/hr. 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 Moves left UE and LE spontaneously and intermittently. MUSC: SCDs on bilateral lower extremities. Pedal pulses present. SKIN: Sacral pressure ulcer extends from anus to coccyx. Procedures ORIF 04/21/17 Intubation 04/30/17 (Tova Ortiz MD R2) A/P Assessment and Plan 76 y/o female with HTN, DM, CVA admitted for DKA and hip fracture. Sadly, patients with hip fractures have other problems and have a high chance of fatal conditions near the time of their fractures. Hip fractures are often a marker for other frailty. Now with massive left MCA stroke, right hemiplegia and midline shift resolving. Neurology and strand galvanizer consulted. Poor prognosis per neurology. Working with palliative care and daughter for goals of care. Now completing treatment of UTI and attempting to wean off vent. Discharge Planning There is nothing more for family medicine to do, we are signing off and transferring patient to Dr. Saleh, with plans for transfer to [facility] for long- term care Pending discussion for goals of care She has no Insurance. Medicaid was applied for and she cannot have this as she is not a [place] citizen and has not lived in the [place] long enough. She cannot go to a vent facility nor a SNF without insurance. Case management explained that to her daughter. Daughter continues to want aggressive management, recent attempts at family meeting unsuccessful. (Tova Ortiz MD R2) Attending Attestation Pt. examined and case discussed with resident physicians. I have read the above note and agree with the assessment and plan as discussed with me. I was involved in all medical decision making for this patient. Fazal Zamora MD (Fazal Zamora MD) Problem List: (1) Acute CVA (cerebrovascular accident) ICD Codes: I63.9 - Cerebral infarction, unspecified Status: Chronic Plan: -Consulted strand galvanizer, appreciate recs: s/p Tracheostomy 05/15 and PEG tube insertion 05/16 with poor prognosis -wean off vent as tolerated -Neurosurgery consulted -Recommended conservative management -Retail Reset Merchandiser consulted and appreciated: -Tube feeds: Glucerna 1.5 tube feed @ 45ml/hr 24 hours a day for diet via PEG tube -maintenance fluid through PEG tube: free water 300cc q6h as she needs maintenance fluid of about 95 ml/hr -Physical therapy consulted and appreciated -Consulted palliative care-appreciate recs. appreciate help in talking to her daughter -Daughter continues to want aggressive care. Wishes to continue aggressive medical treatment despite prognosis. Failed to attend recent family meeting organized by palliative care -Neurology consulted-appreciate recs: Poor prognosis -Rectal ASA -Lovenox 40mg daily History and imaging: Patient found minimally responsive with neurological deficits around 0820 04/24. Stat CT of head was ordered, which showed large left MCA infarct. Diffuse edema throughout the left MCA distribution, suggested completed infarct. This was discussed and was not a candidate for intracranial intervention. CT (04/30): Reduction in midline shift to 11mm. Unchanged large left MCA infarction. CT head (05/06) shows: Evolving large left-sided MCA territory infarct with minimally improved frxf-gr-ppola subfalcine shift. No intercurrent hemorrhage or other acute abnormality. Echocardiogram- The left ventricular systolic function is low normal with an estimated ejection fraction in the range of 50-55%. Mild concentric left ventricular hypertrophy. Normal left ventricular size. [id number] mitral valve regurgitation. Carotid Artery US- No hemodynamically significant carotid stenosis (2) On mechanically assisted ventilation ICD Codes: Z99.11 - Dependence on respirator [ventilator] status Status: Chronic Plan: Impression: s/p trach procedure 05/15. Currently on vent. -Continues to fail weaning trials, periods of apnea (3) UTI (urinary tract infection) ICD Codes: N39.0 - Urinary tract infection, site not specified Status: Resolved Plan: History: - UTI (05/26) Ucx: Citrobacter freundii - ABx: s/p Cefepime x 7 days (4) Anemia ICD Codes: D64.9 - Anemia, unspecified Status: Chronic Plan: s/p 1u of PRBC on 05/29/17. Hgb stable since then. Hemoccult negative. - monitor H&H (5) Urinary retention ICD Codes: R33.9 - Retention of urine, unspecified Status: Chronic Plan: -Inserted Leavitt cath because patient was retaining urine with intermittent cath's (6) Sacral decubitus ulcer ICD Codes: L89.159 - Pressure ulcer of sacral region, unspecified stage Status: Chronic Plan: Patient with small sacral decubitus ulcer over the coccyx. -Wound care consult appreciated: 1. Please cleanse buttock, coccyx, and sacral areas gently with soap and water and apply thick layer of Calazime barrier cream BID and PRN and leave wound open to air for now. 2. Order pressure relieving support surface mattress or bed such as [employer] airapy or K-4 bed from [employer]. 3. Continue to turn patient every 2 hours or PRN for comfort. 4. Please do not put thick cloth underpads under patient for turning purposes. Please use flat turn sheet and ultra sorb pads for incontinence management. (7) Type 2 diabetes mellitus ICD Codes: E11.9 - Type 2 diabetes mellitus without complications Status: Chronic Plan: - Continue Levemir 7AM + 7 PM for hyperglycemia, fingersticks are labile recently [97-257] - Continue low dose SSI, goal 140-180 -Glucerna for PEG tube feedings @ 45 ml/hr History: Admitted for DKA which has now resolved. Hemoglobin A1C is 12.9. Diabetes Type I is uncontrolled. 05/22 - 8PM stating pt BG level at 60 and hypoglycemia protocol started, then Levemir 5AM + 5PM until raised cher current dose on 05/28 (8) Hypertension ICD Codes: I10 - Essential (primary) hypertension Status: Chronic Plan: -Antihypertensives to keep SBP<180 -Lasix or Bumex for diuresis as required (9) Atrial fibrillation ICD Codes: I48.91 - Unspecified atrial fibrillation Status: Resolved Plan: Hx of intermittent Afib. Resolved with administration of Lopressor. -Continue to monitor -Lopressor PRN (10) Hip fracture ICD Codes: S72.009A - Fracture of unspecified part of neck of unspecified femur , initial encounter for closed fracture Status: Resolved Plan: S/P left hip reduction and intramedullary nail fixation on 04-21-17 -Consulted orthopedics-appreciate recs * WBAT * Daily dressing changes -Calcium/Vitamin D -Fluids as above -Tylenol, morphine PRN pain, but it is difficult to tell if she is having pain (11) Fluids, Electrolytes, and Nutrition Status: Acute Plan: Fluids: through PEG tube Electrolyte: on electrolyte protocol Nutrition: Glucerna tube feeds and free water DVT ppx: SCDs/lovenox 40 mg daily CVA ppx: aspirin 325 mg GI ppx: Lansoprazole Colace, fleet enema mineral oil PRN (Tova Ortiz MD R2) Problem Qualifiers (1) UTI (urinary tract infection): Qualified Codes: N39.0 - Urinary tract infection, site not specified (2) Sacral decubitus ulcer: Qualified Codes: L89.151 - Pressure ulcer of sacral region, stage 1 (3) Type 2 diabetes mellitus: Qualified Codes: E11.9 - Type 2 diabetes mellitus without complications (4) Hypertension: Qualified Codes: I10 - Essential (primary) hypertension (5) Atrial fibrillation: Qualified Codes: I48.0 - Paroxysmal atrial fibrillation (6) Hip fracture: Tova Ortiz MD R2 Jun 05, 2017 11:46 Fazal Zamora MD Jun 05, 2017 22:50
[2017-06-05] MEDS: BENEPROTEIN POWDER 1 PACK G-TUBE SCH ×2 (12:39→17:40)
[2017-06-05] MEDS: hydrALAZINE HCL 20 MG/ML VIAL IV PUSH PRN ×2 (14:34→18:13)
--- NOTE | 2017-06-05 14:40 | PD.WCN.NOT ---
Wound Consult Description: Patient seen for follow up of DTI opening to partial thickness skin loss to coccyx area Communicated with: GREGORY Pruitt [facility] Recommendation: 1. Please cleanse buttock, coccyx, and sacral areas gently with soap and water and apply thick layer of Calazime barrier cream BID and PRN and leave wound open to air for now. 2. Continue to turn patient every 2 hours or PRN for comfort. Please do not put thick cloth underpads under patient for turning purposes. Please use flat turn sheet and ultra sorb pads for incontinence management. Additional Information: Patient seen on [address] [place] [address] for follow up of DTI on coccyx opening to partial thickness skin loss.Patient turned to R side with the assistance of Sonal JENKINS [facility] for wound assessment.Wound previously noted with partial thickness skin loss , is still partial thickness. Periwound is improved with less maceration.Wound measures 1cm x 1.5cm x ~<0.1 cm. Cleansed wound with normal saline and left open to air. GREGORY Pruitt to apply Calazime barrier cream and leave open to air. Patient is being turned every 2 hours and is on a [facility] specialty bed. Agatha Hudson [facility] Jun 05, 2017 14:40
[2017-06-06] VITALS (18 sets, daily range): BP systolic 134–161; BP diastolic 69–74; PULSE 78–96; RESP 19–24; TEMP 98.4–99.1; O2SAT 93–99
[2017-06-06] MEDS: FREE WATER G-TUBE SCH ×5 (00:02→23:53)
[2017-06-06] MEDS: hydrALAZINE HCL 20 MG/ML VIAL IV PUSH PRN ×3 (01:07→21:37)
--- NOTE | 2017-06-06 07:09 | HHI.CCPN ---
Subjective Remarks/Hospital Course Note for 05/30/17: 04/24: 76-year-old female with a medical history significant for prior stroke, diabetes mellitus who was admitted with DKA and a hip fracture for which she underwent ORIF on 04/21. Patient developed altered mental status and was last noted to be okay around 5:30 AM. Subsequently there was a change in her mental status and she was noted to not be moving her right side for which stroke alert was called. Head CT showed large left MCA territory ischemic infarct with edema. Patient was transferred to the ICU by family medicine service in the critical care consult was requested. I evaluated the patient following arrival to the ICU. At that time she was laying in bed with her eyes open however not following commands and had a dense right hemiplegia. Patient was also evaluated by Dr. Malave from neurology. I further discussed current event with patient's daughter following her arrival to the ICU. Per the daughter patient has been living with her since her stroke in 2014 and does ambulate however has been having problems with memory and incontinence as well as gait difficulties. She does not feel patient would want intubation or tracheostomy or PEG tube. 04/25: Patient remains encephalopathic, awake though not following commands consistently. Dense right hemiplegia persists. Appears to be awake enough to protect airway currently. Patient's daughter rescinded DNR and made a full code last evening. 04/26: Remains encephalopathic, not following commands. On Dobbhoff for tube feeds at 30 cc per hour. Had urinary retention and drained 2 L of urine after placing Moser catheter today. CT head done this morning with large left MCA territory infarct with left to right midline shift and significant cerebral edema. Hyperglycemia noted. Patient given mannitol earlier for increasing cerebral edema. 04/27: Remains encephalopathic, not following commands. On Dobbhoff tube feeds at 30 cc per hour. When into A. fib with RVR last night which responded with Lopressor 5 mg IV 1 dose. 04/28: Remains encephalopathic, arousable, not following commands. Moves left upper extremity spontaneously. Tolerating Dobbhoff tube feeds. Remains on nasal cannula. 04/29: Encephalopathic, eyes be arousable, moves left upper extremity spontaneously and occasionally opens eyes. Dense right hemiplegia and aphasia persists. On nasal cannula. Dobbhoff tube feeds being advanced. Patient was transfused 1 unit PRBCs yesterday. Urine culture with yeast from yesterday for which fluconazole being started. Had brief run of A. fib with RVR which improved with Lopressor IV, currently in sinus rhythm. 04/30: Worsening hypoxemic respiratory failure, currently on partial nonrebreather. Remains lethargic. WBC count increased from 14.6 today 20.7. Chest x-ray shows bilateral worsening infiltrates and small pleural effusions. Sodium 154, weight up by 8 KG. Albumin 1 mg Bumex 1. Also one dose of albumin. Remains in sinus tachycardia. Tmax 101.3 05/01: Patient was intubated yesterday for lack of airway protection, and severe hypoxemic respiratory failure from aspiration pneumonia involving multiple lobes. Patient is on the vent lethargic, no spontaneous eye opening. Chest x- ray remains unchanged. Remains intermittently febrile Tmax 101.3. WBC count improving 05/02: Remains critically ill with no improvement in mental status. Spiking fever of 101.7. Blood culture and sputum culture with staph aureus sputum also growing GNR, WBC count 22,000 now indicating worsening sepsis. Daughter still requesting aggressive care. Palliative care is following 05/03: S/P large area dominant hemisphere CVA. No neurological improvement. Now with pneumonia (infiltrate, fever, leukocytosis) and appropriate abx coverage. She will have a hard time surviving the hip fx, CVA, and pneumonia. Palliative Care needs to be a mainstay of our plan. 05/04: No improvement in neuro status. Sputum C&S allows us to narrow abx coverage to levaquin alone. Lungs remain quite congested. Enteral nutrition tolerated. 05/05: No improvement in neuro status. Moves left arm spontaneously. Flaccid right side. Unresponsive. Persistent mild hypoglycemia - will cut Levemir 50%. Abdomen more distended, check KUB. 05/06: CT head with massive left MCA infarction and > 1 cm shift in right handed woman. She opens eyes, does not track. 05/07: Patient open eyes. Attempts to respond. [place] speaking. Tolerating tube feeds. Positive bowel movement. Volume overloaded. 05/08: Tmax 99.4. Potassium being replaced. Ultrasound gallbladder currently pending. Transaminases are trending downward. Gently diurese. 05/09: Alk phos decreasing. Remains with good urine output. Neurological status not improving. 05/10: Fixed neuro deficit unchanged. Profound CVA. 05/11: Appears to track with eyes today. No improvement in motor function. Remains very edematous, diuretics doubled. 05/12: Continued thick secretions. Afebrile, leukocytosis resolved. 05/13: CT head with completed left MCA stroke, persistent edema and 5 mm shift away. Does not last long on SBTs - major decision now is trach/PEG. 05/14: Daughter has decided to proceed with trach and PEG. I have been pessimistic with her about chances for a meaningful recovery. 05/15: Plan for trach today. No change in neuro status. Still ventilator dependent. 05/16: Trach completed. Await PEG and disposition. 05/17: PEG placed 05/16. Start TFs today after nutrition consult. Work to place patient. 05/18: No improvement. Does open eyes, no focus or tracking. Completed large dominant (left) hemisphere CVA in right handed woman with severe deficit. Medicaid pending status, [facility] is following. 05/19: no improvements in neuro exam. ready for LTAC. will d/c moser and rectal tubes. 05/20: no changes or improvements. very difficult placement due to patient not [place] citizen. 05/21: no improvements. resting on vent overnight due to distress. 05/22: no neurologic changes. no improvements. attempted T-piece which failed after 10 minutes. 05/23: no improvements. poor prognosis. poor neuro exam. still failing weaning trials. 05/24: no improvements or changes. still failing t-piece trials. 05/25: No acute changes of improvement overnight. Failed CPAP due to apnea, tried again currently tolerating. Neurological exam unchanged. 05/26: No improvement in neurological function. 05/27: Patient has required Moser catheter because of breakdown of skin on upper thighs and groin. Urine has become infected, will treat. 05/28: Some drainage from around trach (placed 2 weeks ago). Will change out trach tube and inspect neck wound. I&O straight cath q6h order entered 05/17. 05/29: No improvement, remains obtunded. Failed CPAP trials yesterday and again today due to apnea. Moser placed due to persistent urinary retention 05/30: Obtunded, unresponsive. Failed SBTs, remains ventilator dependent. 05/31: Patient continues to fail SBT failed yesterday due to apnea. Neuro exam remains unchanged. 06/01: No acute changes overnight, 06/02: no changes. ekg done overnight for ? EKG changes seen on telemetry which were not visualized on EKG. Subjective 06/03: no improvements or changes. had long conversation with daughter yesterday. only facility which would accept patient is in [place] and daughter is refusing to allow patient to go there because it is "too far away." Daughter continues to push for aggressive care despite no improvements, and resistant to Hospice. Patient does not need acute inpatient therapy but lacks funding for appropriate disposition. 06/04: No acute events overnight, failed SBT due to apnea. 06/05: No acute events, continues to fail spontaneous breathing trials. Unable to wean 06/06 Currently tolerating CPAP. Will attempt TP today up to 4 hours. No acute events overnight Objective Vital Signs Date Time Temp Pulse Resp B/P (MAP) Pulse Ox O2 Delivery O2 Flow Rate FiO2 06/06/17 06:00 85 06/06/17 04:00 40 06/06/17 04:00 98.7 20 150/70 (96) 96 06/05/17 19:00 Mechanical Ventilator Intake and Output 06/06/17 06/06/17 06/07/17 08:00 16:00 00:00 Intake Total 1220 ml Output Total 750 ml Balance 470 ml Result Diagram: 06/05/17 0538 06/02/17 0452 Imaging Last Impressions Chest X-Ray 05/07/17 0400 Signed Impressions: Service Date/Time: Sunday, May 07, 2017 04:38 - CONCLUSION: 1. Stable Low-lying ETT with tip approximately 1 cm above the valerie. 2. Mild interval progression of bilateral airspace consolidation exaggerated by patient rotation. 3. Increased small left pleural effusion. Alejo De La Vega MD Abdomen/Pelvis CT 05/07/17 0000 Signed Impressions: Service Date/Time: Sunday, May 07, 2017 13:23 - CONCLUSION: 1. Large left pneumothorax. 2. Bilateral lower lobe consolidation and bilateral moderate size pleural effusions. 3. Significant soft tissue thickening of the right lateral chest wall and left gluteus muscle. 4. Mild ascites. The findings were called to Dr. Carney. Deangelo Zamora MD Head CT 05/06/17 0000 Signed Impressions: Service Date/Time: Saturday, May 06, 2017 04:18 - CONCLUSION: 1. Evolving large left-sided MCA territory infarct with minimally improved [id number] subfalcine shift. 2. No intercurrent hemorrhage or other acute abnormality. Alejo De La Vega MD Abdomen X-Ray 05/06/17 0000 Signed Impressions: Service Date/Time: Saturday, May 06, 2017 17:42 - CONCLUSION: Dobbhoff feeding tube tip near the gastroduodenal junction. Obdulio Simms MD Hip and Pelvis X-Ray 05/05/17 0000 Signed Impressions: Service Date/Time: Friday, May 05, 2017 10:59 - CONCLUSION: Left proximal femur trochanteric/subtrochanteric fracture lucency visualized. Postoperative changes. Choco Mustafa MD Chest CT 04/30/17 0000 Signed Impressions: Service Date/Time: Sunday, April 30, 2017 09:20 - CONCLUSION: 1. Bilateral pulmonary infiltrates more pronounced within the lower lobes with tiny bilateral pleural effusions. Material seen filling the lower lobe bronchi bilaterally either related to purulent material or perhaps mucus plugging. Deangelo Wren Jr., MD Carotid Artery Ultrasound 04/24/17 0000 Signed Impressions: Service Date/Time: April 09:45 - CONCLUSION: 1. No hemodynamically significant carotid artery stenosis. Arnie Middleton MD Hip X-Ray 04/21/17 0000 Signed Impressions: Service Date/Time: Friday, April 21, 2017 11:36 - CONCLUSION: Fluoroscopic images during placement of intramedullary siomara left femur. Benja Ramsey MD Objective Remarks Gen: 76-year-old female, unresponsive. HEENT: mucous membranes moist. Neck: Trach site clean and dry. Resp: unlabored. on ventilator. Currently tolerating CPAP Cardiovascular: RRR. No murmurs, no JVD. GI/abdomen: Distended. Nontender. no guarding. Extremities: Incision sites over left hip, site clean dry and intact. Neuro: On no sedation. Grimaces spontaneously, no eye opening. Dense right hemiplegia. Withdraws left upper extremity, Withdraws LLE. No change. Pupils 2 mm, react. A/P Assessment and Plan Neuro/Psych: Left MCA CVA - 12 mm of [id number]-sn-innty subfalcine herniation. right-sided hemiplegia Acute encephalopathy History CVA Continue Aspirin 325 mg by mouth daily. On admission, patient was not a candidate for thrombolysis per discussion with neurology and radiology. Repeat head CT 05/05 showed slight improvement in the midline shift and mass effect Neurosurgery consulted 04/30- Dr. López, recommended conservative management. Neurology Dr. Malave has followed Cardiovascular: Hypertension As needed Antihypertensives to keep systolic blood pressure less than to 160 mmHg (when necessary IV labetalol and IV hydralazine) Lisinopril 10 mg twice a day 05/31/17, with improved BP control Echocardiogram 04/24 - EF 50 to 55%. Mild concentric LVH. Pulmonary: Acute hypoxic respiratory failure - aspiration possible HCAP, now chronic vent dependent respiratory failure Large left pneumothorax status post #10 [place] chest tube 05/07 Chronic respiratory failure, tolerating CPAP today. Trial of 4 hour TP Ventilator bundle. Ipratropium/albuterol aerosols every 6 hours with albuterol aerosols every 2 hours Chest tube d/c'd 05/12 Daily SBTs. failing for apnea. will continue attempts GI/liver: Elevated transaminases Hypoalbuminemia Moderate to severe protein calorie malnutrition Continue PEG tube feeding with Glucerna 1.5 goal 45 cc an hour Lansoprazole 30 mg daily for GI regimen Docusate sodium 100 twice a day, Senokot 8.6 twice a day, polyethylene glycol 17 grams twice a day and lactulose 30 cc 4 times a day Previous CT abdomen/pelvis 05/07 - mild ascites. Large left hemothorax. Right greater than left pleural effusion. Endocrine: Diabetes mellitus Detemir 8 units subcutaneous daily. SSI high dose q4h. Holding glimepiride 4 mg by mouth daily /Renal/FEN: Hypokalemia Strict intake output, monitor and replete electrolytes, follow BUN/creatinine. Moser catheter placed for urinary retention on 04/26. Moser removed 05/19 with q6h straight cath. Moser replaced again due to persistent urinary retention. Heme: Chronic Rivaroxaban use Leukocytosis Normocytic anemia Thrombocytosis Follow CBC and coags. On subcutaneous enoxaparin Hemoglobin currently stable. No indications for transfusion of blood proximally at this time ID: MSSA bacteremia Serratia/staph aureus pneumonia C glabrata UTI Citrobacter UTI Pertinent cultures Urine culture 04/26/17 sofie glabrata Blood culture 04/29/17 1 out of 4 bottles staph aureus Sputum culture 04/30/17 staph aureus and Serratia. Blood cultures 2, sputum 1 and urine 05/08 pending -> Serratia, treated. Urine 05/26: Citrobacter Ceftriaxone started 05/26, changed to Cefepime 05/27 based on sensitivity, stopped 06/03/17 MSK: Left Intertroch Hip Fx s/p IMN Vitamin D deficiency Prophylaxis: SCDs. Enoxaparin 40 mg sq daily-cleared by Dr. Malave. GI - lansoprazole Overall impression: Severe dominant hemisphere CVA. No improvement. Poor prognosis. Very difficult wean given age, comorbidities and deconditioning. PEG placed. No change in neuro status. Unable to place and little hope for any meaningful recovery. Level 1 Meg Mak MD Jun 06, 2017 07:09
[2017-06-06] MEDS: INSULIN ASPART SUPPLEMENTAL SCALE SQ SCH ×4 (07:54→20:29)
[2017-06-06] MEDS: ASPIRIN 325 MG TAB DOBHOFF SCH (07:55)
[2017-06-06] MEDS: CHOLECALCIFEROL (VIT D3) 5000 UNIT CAP PO SCH (07:55)
[2017-06-06] MEDS: CALCIUM/VITAMIN D 250 MG/125 U TAB PO SCH ×3 (07:55→18:00)
[2017-06-06] MEDS: ENOXAPARIN SODIUM 40 MG/0.4 ML SYRINGE SQ SCH (07:55)
[2017-06-06] MEDS: DOCUSATE SODIUM 100 MG/10 ML UDC PO SCH ×2 (07:55→20:29)
[2017-06-06] MEDS: LISINOPRIL 10 MG TAB PO SCH ×2 (07:56→20:34)
[2017-06-06] MEDS: BENEPROTEIN POWDER 1 PACK G-TUBE SCH ×3 (07:56→17:11)
[2017-06-06] MEDS: SODIUM CHLORIDE 0.9% FLUSH 5 ML FLUSH IV FLUSH SCH ×2 (07:56→20:35)
[2017-06-06] MEDS: INSULIN DETEMIR 100 UNITS/ML VIAL SQ SCH ×2 (07:56→20:35)
[2017-06-06] MEDS: LANSOPRAZOLE SOLUTAB 30 MG TAB NG SCH (07:56)
[2017-06-06] MEDS: FUROSEMIDE 40 MG/5 ML UNIT DOSE CUP NG SCH (07:56)
[2017-06-07] VITALS (16 sets, daily range): BP systolic 117–162; BP diastolic 56–97; PULSE 82–100; RESP 15–23; TEMP 98.5–99.1; O2SAT 94–99
[2017-06-07] MEDS: hydrALAZINE HCL 20 MG/ML VIAL IV PUSH PRN ×2 (02:14→14:21)
[2017-06-07] MEDS: FREE WATER G-TUBE SCH ×3 (05:36→17:35)
--- NOTE | 2017-06-07 06:33 | HHI.CCPN ---
Subjective Remarks/Hospital Course Note for 05/30/17: 04/24: 76-year-old female with a medical history significant for prior stroke, diabetes mellitus who was admitted with DKA and a hip fracture for which she underwent ORIF on 04/21. Patient developed altered mental status and was last noted to be okay around 5:30 AM. Subsequently there was a change in her mental status and she was noted to not be moving her right side for which stroke alert was called. Head CT showed large left MCA territory ischemic infarct with edema. Patient was transferred to the ICU by family medicine service in the critical care consult was requested. I evaluated the patient following arrival to the ICU. At that time she was laying in bed with her eyes open however not following commands and had a dense right hemiplegia. Patient was also evaluated by Dr. Malave from neurology. I further discussed current event with patient's daughter following her arrival to the ICU. Per the daughter patient has been living with her since her stroke in 2014 and does ambulate however has been having problems with memory and incontinence as well as gait difficulties. She does not feel patient would want intubation or tracheostomy or PEG tube. 04/25: Patient remains encephalopathic, awake though not following commands consistently. Dense right hemiplegia persists. Appears to be awake enough to protect airway currently. Patient's daughter rescinded DNR and made a full code last evening. 04/26: Remains encephalopathic, not following commands. On Dobbhoff for tube feeds at 30 cc per hour. Had urinary retention and drained 2 L of urine after placing Moser catheter today. CT head done this morning with large left MCA territory infarct with left to right midline shift and significant cerebral edema. Hyperglycemia noted. Patient given mannitol earlier for increasing cerebral edema. 04/27: Remains encephalopathic, not following commands. On Dobbhoff tube feeds at 30 cc per hour. When into A. fib with RVR last night which responded with Lopressor 5 mg IV 1 dose. 04/28: Remains encephalopathic, arousable, not following commands. Moves left upper extremity spontaneously. Tolerating Dobbhoff tube feeds. Remains on nasal cannula. 04/29: Encephalopathic, eyes be arousable, moves left upper extremity spontaneously and occasionally opens eyes. Dense right hemiplegia and aphasia persists. On nasal cannula. Dobbhoff tube feeds being advanced. Patient was transfused 1 unit PRBCs yesterday. Urine culture with yeast from yesterday for which fluconazole being started. Had brief run of A. fib with RVR which improved with Lopressor IV, currently in sinus rhythm. 04/30: Worsening hypoxemic respiratory failure, currently on partial nonrebreather. Remains lethargic. WBC count increased from 14.6 today 20.7. Chest x-ray shows bilateral worsening infiltrates and small pleural effusions. Sodium 154, weight up by 8 KG. Albumin 1 mg Bumex 1. Also one dose of albumin. Remains in sinus tachycardia. Tmax 101.3 05/01: Patient was intubated yesterday for lack of airway protection, and severe hypoxemic respiratory failure from aspiration pneumonia involving multiple lobes. Patient is on the vent lethargic, no spontaneous eye opening. Chest x- ray remains unchanged. Remains intermittently febrile Tmax 101.3. WBC count improving 05/02: Remains critically ill with no improvement in mental status. Spiking fever of 101.7. Blood culture and sputum culture with staph aureus sputum also growing GNR, WBC count 22,000 now indicating worsening sepsis. Daughter still requesting aggressive care. Palliative care is following 05/03: S/P large area dominant hemisphere CVA. No neurological improvement. Now with pneumonia (infiltrate, fever, leukocytosis) and appropriate abx coverage. She will have a hard time surviving the hip fx, CVA, and pneumonia. Palliative Care needs to be a mainstay of our plan. 05/04: No improvement in neuro status. Sputum C&S allows us to narrow abx coverage to levaquin alone. Lungs remain quite congested. Enteral nutrition tolerated. 05/05: No improvement in neuro status. Moves left arm spontaneously. Flaccid right side. Unresponsive. Persistent mild hypoglycemia - will cut Levemir 50%. Abdomen more distended, check KUB. 05/06: CT head with massive left MCA infarction and > 1 cm shift in right handed woman. She opens eyes, does not track. 05/07: Patient open eyes. Attempts to respond. Sen[place]e speaking. Tolerating tube feeds. Positive bowel movement. Volume overloaded. 05/08: Tmax 99.4. Potassium being replaced. Ultrasound gallbladder currently pending. Transaminases are trending downward. Gently diurese. 05/09: Alk phos decreasing. Remains with good urine output. Neurological status not improving. 05/10: Fixed neuro deficit unchanged. Profound CVA. 05/11: Appears to track with eyes today. No improvement in motor function. Remains very edematous, diuretics doubled. 05/12: Continued thick secretions. Afebrile, leukocytosis resolved. 05/13: CT head with completed left MCA stroke, persistent edema and 5 mm shift away. Does not last long on SBTs - major decision now is trach/PEG. 05/14: Daughter has decided to proceed with trach and PEG. I have been pessimistic with her about chances for a meaningful recovery. 05/15: Plan for trach today. No change in neuro status. Still ventilator dependent. 05/16: Trach completed. Await PEG and disposition. 05/17: PEG placed 05/16. Start TFs today after nutrition consult. Work to place patient. 05/18: No improvement. Does open eyes, no focus or tracking. Completed large dominant (left) hemisphere CVA in right handed woman with severe deficit. Medicaid pending status, [facility] is following. 05/19: no improvements in neuro exam. ready for LTAC. will d/c moser and rectal tubes. 05/20: no changes or improvements. very difficult placement due to patient not [place] citizen. 05/21: no improvements. resting on vent overnight due to distress. 05/22: no neurologic changes. no improvements. attempted T-piece which failed after 10 minutes. 05/23: no improvements. poor prognosis. poor neuro exam. still failing weaning trials. 05/24: no improvements or changes. still failing t-piece trials. 05/25: No acute changes of improvement overnight. Failed CPAP due to apnea, tried again currently tolerating. Neurological exam unchanged. 05/26: No improvement in neurological function. 05/27: Patient has required Moser catheter because of breakdown of skin on upper thighs and groin. Urine has become infected, will treat. 05/28: Some drainage from around trach (placed 2 weeks ago). Will change out trach tube and inspect neck wound. I&O straight cath q6h order entered 05/17. 05/29: No improvement, remains obtunded. Failed CPAP trials yesterday and again today due to apnea. Moser placed due to persistent urinary retention 05/30: Obtunded, unresponsive. Failed SBTs, remains ventilator dependent. 05/31: Patient continues to fail SBT failed yesterday due to apnea. Neuro exam remains unchanged. 06/01: No acute changes overnight, 06/02: no changes. ekg done overnight for ? EKG changes seen on telemetry which were not visualized on EKG. Subjective 06/03: no improvements or changes. had long conversation with daughter yesterday. only facility which would accept patient is in [place] and daughter is refusing to allow patient to go there because it is "too far away." Daughter continues to push for aggressive care despite no improvements, and resistant to Hospice. Patient does not need acute inpatient therapy but lacks funding for appropriate disposition. 06/04: No acute events overnight, failed SBT due to apnea. 06/05: No acute events, continues to fail spontaneous breathing trials. Unable to wean 06/06 Currently tolerating CPAP. Will attempt TP today up to 4 hours. No acute events overnight 06/07: Tolerating trach collar/T-piece. Transfer soon. Objective Vital Signs Date Time Temp Pulse Resp B/P (MAP) Pulse Ox O2 Delivery O2 Flow Rate FiO2 06/07/17 06:00 97 06/07/17 04:00 99.0 23 161/79 (106) 97 06/07/17 04:00 40 06/06/17 19:00 Mechanical Ventilator 06/06/17 08:00 5.00 Intake and Output 06/07/17 06/07/17 06/07/17 07:59 15:59 23:59 Intake Total 1160 ml Output Total 900 ml Balance 260 ml Result Diagram: 06/05/17 0538 Imaging Last Impressions Chest X-Ray 05/07/17 0400 Signed Impressions: Service Date/Time: Sunday, May 07, 2017 04:38 - CONCLUSION: 1. Stable Low-lying ETT with tip approximately 1 cm above the valerie. 2. Mild interval progression of bilateral airspace consolidation exaggerated by patient rotation. 3. Increased small left pleural effusion. Alejo De La Vega MD Abdomen/Pelvis CT 05/07/17 0000 Signed Impressions: Service Date/Time: Sunday, May 07, 2017 13:23 - CONCLUSION: 1. Large left pneumothorax. 2. Bilateral lower lobe consolidation and bilateral moderate size pleural effusions. 3. Significant soft tissue thickening of the right lateral chest wall and left gluteus muscle. 4. Mild ascites. The findings were called to Dr. Canrey. Deangelo Zamora MD Head CT 05/06/17 0000 Signed Impressions: Service Date/Time: Saturday, May 06, 2017 04:18 - CONCLUSION: 1. Evolving large left-sided MCA territory infarct with minimally improved [id number] subfalcine shift. 2. No intercurrent hemorrhage or other acute abnormality. Aljeo De La Vega MD Abdomen X-Ray 05/06/17 0000 Signed Impressions: Service Date/Time: Saturday, May 06, 2017 17:42 - CONCLUSION: Dobbhoff feeding tube tip near the gastroduodenal junction. Obdulio Simms MD Hip and Pelvis X-Ray 05/05/17 0000 Signed Impressions: Service Date/Time: Friday, May 05, 2017 10:59 - CONCLUSION: Left proximal femur trochanteric/subtrochanteric fracture lucency visualized. Postoperative changes. Choco Mustafa MD Chest CT 04/30/17 0000 Signed Impressions: Service Date/Time: Sunday, April 30, 2017 09:20 - CONCLUSION: 1. Bilateral pulmonary infiltrates more pronounced within the lower lobes with tiny bilateral pleural effusions. Material seen filling the lower lobe bronchi bilaterally either related to purulent material or perhaps mucus plugging. Deangelo Wren Jr., MD Carotid Artery Ultrasound 04/24/17 0000 Signed Impressions: Service Date/Time: April 09:45 - CONCLUSION: 1. No hemodynamically significant carotid artery stenosis. Arnie Middleton MD Hip X-Ray 04/21/17 0000 Signed Impressions: Service Date/Time: Friday, April 21, 2017 11:36 - CONCLUSION: Fluoroscopic images during placement of intramedullary siomara left femur. Benja Ramsey MD Objective Remarks Gen: 76-year-old female, unresponsive following massive dominant hemisphere stroke. HEENT: mucous membranes moist. Neck: Trach site clean and dry. Resp: unlabored. on ventilator. Currently tolerating CPAP Cardiovascular: RRR. No murmurs, no JVD. GI/abdomen: Distended. Nontender. no guarding. Extremities: Incision sites over left hip, site clean dry and intact. Neuro: On no sedation. Grimaces spontaneously, no eye opening. Dense right hemiplegia. Withdraws left upper extremity, Withdraws LLE. No change. Pupils 2 mm, react. A/P Assessment and Plan Neuro/Psych: Left MCA CVA - 12 mm of [id number] subfalcine herniation. right-sided hemiplegia Acute encephalopathy History CVA Continue Aspirin 325 mg by mouth daily. On admission, patient was not a candidate for thrombolysis per discussion with neurology and radiology. Repeat head CT 05/05 showed slight improvement in the midline shift and mass effect Neurosurgery consulted 04/30- Dr. López, recommended conservative management. Neurology Dr. Malave has followed Cardiovascular: Hypertension As needed Antihypertensives to keep systolic blood pressure less than to 160 mmHg (when necessary IV labetalol and IV hydralazine) Lisinopril 10 mg twice a day 05/31/17, with improved BP control Echocardiogram 04/24 - EF 50 to 55%. Mild concentric LVH. Pulmonary: Acute hypoxic respiratory failure - aspiration possible HCAP, now chronic vent dependent respiratory failure Large left pneumothorax status post #10 [place] chest tube 05/07 Chronic respiratory failure, tolerating CPAP today. Trial of 4 hour TP Ventilator bundle. Ipratropium/albuterol aerosols every 6 hours with albuterol aerosols every 2 hours Chest tube d/c'd 05/12 Daily SBTs. failing for apnea. will continue attempts GI/liver: Elevated transaminases Hypoalbuminemia Moderate to severe protein calorie malnutrition Continue PEG tube feeding with Glucerna 1.5 goal 45 cc an hour Lansoprazole 30 mg daily for GI regimen Docusate sodium 100 twice a day, Senokot 8.6 twice a day, polyethylene glycol 17 grams twice a day and lactulose 30 cc 4 times a day Previous CT abdomen/pelvis 05/07 - mild ascites. Large left hemothorax. Right greater than left pleural effusion. Endocrine: Diabetes mellitus Detemir 8 units subcutaneous daily. SSI high dose q4h. Holding glimepiride 4 mg by mouth daily /Renal/FEN: Hypokalemia Strict intake output, monitor and replete electrolytes, follow BUN/creatinine. Moser catheter placed for urinary retention on 04/26. Moser removed 05/19 with q6h straight cath. Moser replaced again due to persistent urinary retention. Heme: Chronic Rivaroxaban use Leukocytosis Normocytic anemia Thrombocytosis Follow CBC and coags. On subcutaneous enoxaparin Hemoglobin currently stable. No indications for transfusion of blood proximally at this time ID: [id number] bacteremia Serratia/staph aureus pneumonia C glabrata UTI Citrobacter UTI Pertinent cultures Urine culture 04/26/17 sofie glabrata Blood culture 04/29/17 1 out of 4 bottles staph aureus Sputum culture 04/30/17 staph aureus and Serratia. Blood cultures 2, sputum 1 and urine 05/08 pending -> Serratia, treated. Urine 05/26: Citrobacter Ceftriaxone started 05/26, changed to Cefepime 05/27 based on sensitivity, stopped 06/03/17 MSK: Left Intertroch Hip Fx s/p IMN Vitamin D deficiency Prophylaxis: SCDs. Enoxaparin 40 mg sq daily-cleared by Dr. Malave. GI - lansoprazole Overall impression: Severe dominant hemisphere CVA. No improvement. Poor prognosis. Very difficult wean given age, comorbidities and deconditioning. PEG placed. No change in neuro status. Unable to place and little hope for any meaningful recovery. Charles Pedraza MD Jun 07, 2017 06:33
[2017-06-07] MEDS: LANSOPRAZOLE SOLUTAB 30 MG TAB NG SCH (07:49)
[2017-06-07] MEDS: CHOLECALCIFEROL (VIT D3) 5000 UNIT CAP PO SCH (07:49)
[2017-06-07] MEDS: ASPIRIN 325 MG TAB DOBHOFF SCH (07:49)
[2017-06-07] MEDS: ENOXAPARIN SODIUM 40 MG/0.4 ML SYRINGE SQ SCH (07:49)
[2017-06-07] MEDS: CALCIUM/VITAMIN D 250 MG/125 U TAB PO SCH ×3 (07:49→17:35)
[2017-06-07] MEDS: INSULIN DETEMIR 100 UNITS/ML VIAL SQ SCH ×2 (07:50→21:37)
[2017-06-07] MEDS: DOCUSATE SODIUM 100 MG/10 ML UDC PO SCH ×2 (07:50→21:00)
[2017-06-07] MEDS: FUROSEMIDE 40 MG/5 ML UNIT DOSE CUP NG SCH (07:50)
[2017-06-07] MEDS: LISINOPRIL 10 MG TAB PO SCH ×2 (07:50→21:36)
[2017-06-07] MEDS: INSULIN ASPART SUPPLEMENTAL SCALE SQ SCH ×4 (07:51→21:37)
[2017-06-07] MEDS: BENEPROTEIN POWDER 1 PACK G-TUBE SCH ×3 (07:51→17:35)
[2017-06-07] MEDS: SODIUM CHLORIDE 0.9% FLUSH 5 ML FLUSH IV FLUSH SCH ×2 (07:51→21:36)
[2017-06-08] VITALS (19 sets, daily range): BP systolic 144–162; BP diastolic 67–80; PULSE 68–107; RESP 14–22; TEMP 98.4–98.8; O2SAT 98–100
[2017-06-08] MEDS: FREE WATER G-TUBE SCH ×4 (00:11→17:39)
[2017-06-08] MEDS: ENOXAPARIN SODIUM 40 MG/0.4 ML SYRINGE SQ SCH (07:49)
[2017-06-08] MEDS: FUROSEMIDE 40 MG/5 ML UNIT DOSE CUP NG SCH (07:49)
[2017-06-08] MEDS: LANSOPRAZOLE SOLUTAB 30 MG TAB NG SCH (07:49)
[2017-06-08] MEDS: DOCUSATE SODIUM 100 MG/10 ML UDC PO SCH ×2 (07:50→19:46)
[2017-06-08] MEDS: LISINOPRIL 10 MG TAB PO SCH ×2 (07:50→21:48)
[2017-06-08] MEDS: BENEPROTEIN POWDER 1 PACK G-TUBE SCH ×3 (07:50→17:39)
[2017-06-08] MEDS: SODIUM CHLORIDE 0.9% FLUSH 5 ML FLUSH IV FLUSH SCH ×2 (07:50→21:00)
[2017-06-08] MEDS: ASPIRIN 325 MG TAB DOBHOFF SCH (07:50)
[2017-06-08] MEDS: CHOLECALCIFEROL (VIT D3) 5000 UNIT CAP PO SCH (07:50)
[2017-06-08] MEDS: INSULIN ASPART SUPPLEMENTAL SCALE SQ SCH ×4 (07:50→21:00)
[2017-06-08] MEDS: CALCIUM/VITAMIN D 250 MG/125 U TAB PO SCH ×3 (07:50→17:39)
[2017-06-08] MEDS: INSULIN DETEMIR 100 UNITS/ML VIAL SQ SCH ×2 (07:51→22:21)
--- NOTE | 2017-06-08 09:03 | HHI.CCPN ---
Subjective Remarks/Hospital Course Note for 05/30/17: 04/24: 76-year-old female with a medical history significant for prior stroke, diabetes mellitus who was admitted with DKA and a hip fracture for which she underwent ORIF on 04/21. Patient developed altered mental status and was last noted to be okay around 5:30 AM. Subsequently there was a change in her mental status and she was noted to not be moving her right side for which stroke alert was called. Head CT showed large left MCA territory ischemic infarct with edema. Patient was transferred to the ICU by family medicine service in the critical care consult was requested. I evaluated the patient following arrival to the ICU. At that time she was laying in bed with her eyes open however not following commands and had a dense right hemiplegia. Patient was also evaluated by Dr. Malave from neurology. I further discussed current event with patient's daughter following her arrival to the ICU. Per the daughter patient has been living with her since her stroke in 2014 and does ambulate however has been having problems with memory and incontinence as well as gait difficulties. She does not feel patient would want intubation or tracheostomy or PEG tube. 04/25: Patient remains encephalopathic, awake though not following commands consistently. Dense right hemiplegia persists. Appears to be awake enough to protect airway currently. Patient's daughter rescinded DNR and made a full code last evening. 04/26: Remains encephalopathic, not following commands. On Dobbhoff for tube feeds at 30 cc per hour. Had urinary retention and drained 2 L of urine after placing Moser catheter today. CT head done this morning with large left MCA territory infarct with left to right midline shift and significant cerebral edema. Hyperglycemia noted. Patient given mannitol earlier for increasing cerebral edema. 04/27: Remains encephalopathic, not following commands. On Dobbhoff tube feeds at 30 cc per hour. When into A. fib with RVR last night which responded with Lopressor 5 mg IV 1 dose. 04/28: Remains encephalopathic, arousable, not following commands. Moves left upper extremity spontaneously. Tolerating Dobbhoff tube feeds. Remains on nasal cannula. 04/29: Encephalopathic, eyes be arousable, moves left upper extremity spontaneously and occasionally opens eyes. Dense right hemiplegia and aphasia persists. On nasal cannula. Dobbhoff tube feeds being advanced. Patient was transfused 1 unit PRBCs yesterday. Urine culture with yeast from yesterday for which fluconazole being started. Had brief run of A. fib with RVR which improved with Lopressor IV, currently in sinus rhythm. 04/30: Worsening hypoxemic respiratory failure, currently on partial nonrebreather. Remains lethargic. WBC count increased from 14.6 today 20.7. Chest x-ray shows bilateral worsening infiltrates and small pleural effusions. Sodium 154, weight up by 8 KG. Albumin 1 mg Bumex 1. Also one dose of albumin. Remains in sinus tachycardia. Tmax 101.3 05/01: Patient was intubated yesterday for lack of airway protection, and severe hypoxemic respiratory failure from aspiration pneumonia involving multiple lobes. Patient is on the vent lethargic, no spontaneous eye opening. Chest x- ray remains unchanged. Remains intermittently febrile Tmax 101.3. WBC count improving 05/02: Remains critically ill with no improvement in mental status. Spiking fever of 101.7. Blood culture and sputum culture with staph aureus sputum also growing GNR, WBC count 22,000 now indicating worsening sepsis. Daughter still requesting aggressive care. Palliative care is following 05/03: S/P large area dominant hemisphere CVA. No neurological improvement. Now with pneumonia (infiltrate, fever, leukocytosis) and appropriate abx coverage. She will have a hard time surviving the hip fx, CVA, and pneumonia. Palliative Care needs to be a mainstay of our plan. 05/04: No improvement in neuro status. Sputum C&S allows us to narrow abx coverage to levaquin alone. Lungs remain quite congested. Enteral nutrition tolerated. 05/05: No improvement in neuro status. Moves left arm spontaneously. Flaccid right side. Unresponsive. Persistent mild hypoglycemia - will cut Levemir 50%. Abdomen more distended, check KUB. 05/06: CT head with massive left MCA infarction and > 1 cm shift in right handed woman. She opens eyes, does not track. 05/07: Patient open eyes. Attempts to respond. [place] speaking. Tolerating tube feeds. Positive bowel movement. Volume overloaded. 05/08: Tmax 99.4. Potassium being replaced. Ultrasound gallbladder currently pending. Transaminases are trending downward. Gently diurese. 05/09: Alk phos decreasing. Remains with good urine output. Neurological status not improving. 05/10: Fixed neuro deficit unchanged. Profound CVA. 05/11: Appears to track with eyes today. No improvement in motor function. Remains very edematous, diuretics doubled. 05/12: Continued thick secretions. Afebrile, leukocytosis resolved. 05/13: CT head with completed left MCA stroke, persistent edema and 5 mm shift away. Does not last long on SBTs - major decision now is trach/PEG. 05/14: Daughter has decided to proceed with trach and PEG. I have been pessimistic with her about chances for a meaningful recovery. 05/15: Plan for trach today. No change in neuro status. Still ventilator dependent. 05/16: Trach completed. Await PEG and disposition. 05/17: PEG placed 05/16. Start TFs today after nutrition consult. Work to place patient. 05/18: No improvement. Does open eyes, no focus or tracking. Completed large dominant (left) hemisphere CVA in right handed woman with severe deficit. Medicaid pending status, [facility] is following. 05/19: no improvements in neuro exam. ready for LTAC. will d/c moser and rectal tubes. 05/20: no changes or improvements. very difficult placement due to patient not [place] citizen. 05/21: no improvements. resting on vent overnight due to distress. 05/22: no neurologic changes. no improvements. attempted T-piece which failed after 10 minutes. 05/23: no improvements. poor prognosis. poor neuro exam. still failing weaning trials. 05/24: no improvements or changes. still failing t-piece trials. 05/25: No acute changes of improvement overnight. Failed CPAP due to apnea, tried again currently tolerating. Neurological exam unchanged. 05/26: No improvement in neurological function. 05/27: Patient has required Moser catheter because of breakdown of skin on upper thighs and groin. Urine has become infected, will treat. 05/28: Some drainage from around trach (placed 2 weeks ago). Will change out trach tube and inspect neck wound. I&O straight cath q6h order entered 05/17. 05/29: No improvement, remains obtunded. Failed CPAP trials yesterday and again today due to apnea. Moser placed due to persistent urinary retention 05/30: Obtunded, unresponsive. Failed SBTs, remains ventilator dependent. 05/31: Patient continues to fail SBT failed yesterday due to apnea. Neuro exam remains unchanged. 06/01: No acute changes overnight, 06/02: no changes. ekg done overnight for ? EKG changes seen on telemetry which were not visualized on EKG. Subjective 06/03: no improvements or changes. had long conversation with daughter yesterday. only facility which would accept patient is in [place] and daughter is refusing to allow patient to go there because it is "too far away." Daughter continues to push for aggressive care despite no improvements, and resistant to Hospice. Patient does not need acute inpatient therapy but lacks funding for appropriate disposition. 06/04: No acute events overnight, failed SBT due to apnea. 06/05: No acute events, continues to fail spontaneous breathing trials. Unable to wean 06/06 Currently tolerating CPAP. Will attempt TP today up to 4 hours. No acute events overnight 06/07: Tolerating trach collar/T-piece. Transfer soon. 06/08: Awaiting transfer. Objective Vital Signs Date Time Temp Pulse Resp B/P (MAP) Pulse Ox O2 Delivery O2 Flow Rate FiO2 06/08/17 06:15 100 40 06/08/17 06:00 91 06/08/17 04:00 98.6 21 146/80 (102) 06/07/17 19:00 Mechanical Ventilator 06/06/17 08:00 5.00 Intake and Output 06/08/17 06/08/17 06/09/17 08:00 16:00 00:00 Intake Total 1220 ml Output Total 1200 ml Balance 20 ml Result Diagram: 06/05/17 0538 Imaging Last Impressions Chest X-Ray 05/07/17 0400 Signed Impressions: Service Date/Time: Sunday, May 07, 2017 04:38 - CONCLUSION: 1. Stable Low-lying ETT with tip approximately 1 cm above the valerie. 2. Mild interval progression of bilateral airspace consolidation exaggerated by patient rotation. 3. Increased small left pleural effusion. Alejo De La Vega MD Abdomen/Pelvis CT 05/07/17 0000 Signed Impressions: Service Date/Time: Sunday, May 07, 2017 13:23 - CONCLUSION: 1. Large left pneumothorax. 2. Bilateral lower lobe consolidation and bilateral moderate size pleural effusions. 3. Significant soft tissue thickening of the right lateral chest wall and left gluteus muscle. 4. Mild ascites. The findings were called to Dr. Carney. Deangelo Zamora MD Head CT 05/06/17 0000 Signed Impressions: Service Date/Time: Saturday, May 06, 2017 04:18 - CONCLUSION: 1. Evolving large left-sided MCA territory infarct with minimally improved [id number] subfalcine shift. 2. No intercurrent hemorrhage or other acute abnormality. Alejo De La Vega MD Abdomen X-Ray 05/06/17 0000 Signed Impressions: Service Date/Time: Saturday, May 06, 2017 17:42 - CONCLUSION: Dobbhoff feeding tube tip near the gastroduodenal junction. Obdulio Simms MD Hip and Pelvis X-Ray 05/05/17 0000 Signed Impressions: Service Date/Time: Friday, May 05, 2017 10:59 - CONCLUSION: Left proximal femur trochanteric/subtrochanteric fracture lucency visualized. Postoperative changes. Choco Mustafa MD Chest CT 04/30/17 0000 Signed Impressions: Service Date/Time: Sunday, April 30, 2017 09:20 - CONCLUSION: 1. Bilateral pulmonary infiltrates more pronounced within the lower lobes with tiny bilateral pleural effusions. Material seen filling the lower lobe bronchi bilaterally either related to purulent material or perhaps mucus plugging. Deangelo Wren Jr., MD Carotid Artery Ultrasound 04/24/17 0000 Signed Impressions: Service Date/Time: April 09:45 - CONCLUSION: 1. No hemodynamically significant carotid artery stenosis. Arnie Middleton MD Hip X-Ray 04/21/17 0000 Signed Impressions: Service Date/Time: Friday, April 21, 2017 11:36 - CONCLUSION: Fluoroscopic images during placement of intramedullary siomara left femur. Benja Ramsey MD Objective Remarks Gen: 76-year-old female, unresponsive following massive dominant hemisphere stroke. HEENT: mucous membranes moist. Neck: Trach site clean and dry. Resp: unlabored. on ventilator. Currently tolerating CPAP Cardiovascular: RRR. No murmurs, no JVD. GI/abdomen: Distended. Nontender. no guarding. Extremities: Incision sites over left hip, site clean dry and intact. Neuro: On no sedation. Grimaces spontaneously, no eye opening. Dense right hemiplegia. Withdraws left upper extremity, Withdraws LLE. No change. Pupils 2 mm, react. A/P Assessment and Plan Neuro/Psych: Left MCA CVA - 12 mm of [id number] subfalcine herniation. right-sided hemiplegia Acute encephalopathy History CVA Continue Aspirin 325 mg by mouth daily. On admission, patient was not a candidate for thrombolysis per discussion with neurology and radiology. Repeat head CT 05/05 showed slight improvement in the midline shift and mass effect Neurosurgery consulted 04/30- Dr. López, recommended conservative management. Neurology Dr. Malave has followed Cardiovascular: Hypertension As needed Antihypertensives to keep systolic blood pressure less than to 160 mmHg (when necessary IV labetalol and IV hydralazine) Lisinopril 10 mg twice a day 05/31/17, with improved BP control Echocardiogram 04/24 - EF 50 to 55%. Mild concentric LVH. Pulmonary: Acute hypoxic respiratory failure - aspiration possible HCAP, now chronic vent dependent respiratory failure Large left pneumothorax status post #10 [place] chest tube 05/07 Chronic respiratory failure, tolerating CPAP today. Trial of 4 hour TP Ventilator bundle. Ipratropium/albuterol aerosols every 6 hours with albuterol aerosols every 2 hours Chest tube d/c'd 05/12 Daily SBTs. failing for apnea. will continue attempts GI/liver: Elevated transaminases Hypoalbuminemia Moderate to severe protein calorie malnutrition Continue PEG tube feeding with Glucerna 1.5 goal 45 cc an hour Lansoprazole 30 mg daily for GI regimen Docusate sodium 100 twice a day, Senokot 8.6 twice a day, polyethylene glycol 17 grams twice a day and lactulose 30 cc 4 times a day Previous CT abdomen/pelvis 05/07 - mild ascites. Large left hemothorax. Right greater than left pleural effusion. Endocrine: Diabetes mellitus Detemir 8 units subcutaneous daily. SSI high dose q4h. Holding glimepiride 4 mg by mouth daily /Renal/FEN: Hypokalemia Strict intake output, monitor and replete electrolytes, follow BUN/creatinine. Moser catheter placed for urinary retention on 04/26. Moser removed 05/19 with q6h straight cath. Moser replaced again due to persistent urinary retention. Heme: Chronic Rivaroxaban use Leukocytosis Normocytic anemia Thrombocytosis Follow CBC and coags. On subcutaneous enoxaparin Hemoglobin currently stable. No indications for transfusion of blood proximally at this time ID: [id number] bacteremia Serratia/staph aureus pneumonia C glabrata UTI Citrobacter UTI Pertinent cultures Urine culture 04/26/17 sofie glabrata Blood culture 04/29/17 1 out of 4 bottles staph aureus Sputum culture 04/30/17 staph aureus and Serratia. Blood cultures 2, sputum 1 and urine 05/08 pending -> Serratia, treated. Urine 05/26: Citrobacter Ceftriaxone started 05/26, changed to Cefepime 05/27 based on sensitivity, stopped 06/03/17 MSK: Left Intertroch Hip Fx s/p IMN Vitamin D deficiency Prophylaxis: SCDs. Enoxaparin 40 mg sq daily-cleared by Dr. Malave. GI - lansoprazole Overall impression: Severe dominant hemisphere CVA. No improvement. Poor prognosis. Very difficult wean given age, comorbidities and deconditioning. PEG placed. No change in neuro status. Unable to place and little hope for any meaningful recovery. May be able to move to floor if she tolerates T-piece. Charles Pedraza MD Jun 08, 2017 09:03
[2017-06-09] VITALS (20 sets, daily range): BP systolic 115–165; BP diastolic 57–76; PULSE 72–92; RESP 14–26; TEMP 98.3–99.2; O2SAT 93–100
[2017-06-09] MEDS: FREE WATER G-TUBE SCH ×4 (06:00→18:05)
--- NOTE | 2017-06-09 07:37 | HHI.CCPN ---
Subjective Remarks/Hospital Course Note for 05/30/17: 04/24: 76-year-old female with a medical history significant for prior stroke, diabetes mellitus who was admitted with DKA and a hip fracture for which she underwent ORIF on 04/21. Patient developed altered mental status and was last noted to be okay around 5:30 AM. Subsequently there was a change in her mental status and she was noted to not be moving her right side for which stroke alert was called. Head CT showed large left MCA territory ischemic infarct with edema. Patient was transferred to the ICU by family medicine service in the critical care consult was requested. I evaluated the patient following arrival to the ICU. At that time she was laying in bed with her eyes open however not following commands and had a dense right hemiplegia. Patient was also evaluated by Dr. Malave from neurology. I further discussed current event with patient's daughter following her arrival to the ICU. Per the daughter patient has been living with her since her stroke in 2014 and does ambulate however has been having problems with memory and incontinence as well as gait difficulties. She does not feel patient would want intubation or tracheostomy or PEG tube. 04/25: Patient remains encephalopathic, awake though not following commands consistently. Dense right hemiplegia persists. Appears to be awake enough to protect airway currently. Patient's daughter rescinded DNR and made a full code last evening. 04/26: Remains encephalopathic, not following commands. On Dobbhoff for tube feeds at 30 cc per hour. Had urinary retention and drained 2 L of urine after placing Moser catheter today. CT head done this morning with large left MCA territory infarct with left to right midline shift and significant cerebral edema. Hyperglycemia noted. Patient given mannitol earlier for increasing cerebral edema. 04/27: Remains encephalopathic, not following commands. On Dobbhoff tube feeds at 30 cc per hour. When into A. fib with RVR last night which responded with Lopressor 5 mg IV 1 dose. 04/28: Remains encephalopathic, arousable, not following commands. Moves left upper extremity spontaneously. Tolerating Dobbhoff tube feeds. Remains on nasal cannula. 04/29: Encephalopathic, eyes be arousable, moves left upper extremity spontaneously and occasionally opens eyes. Dense right hemiplegia and aphasia persists. On nasal cannula. Dobbhoff tube feeds being advanced. Patient was transfused 1 unit PRBCs yesterday. Urine culture with yeast from yesterday for which fluconazole being started. Had brief run of A. fib with RVR which improved with Lopressor IV, currently in sinus rhythm. 04/30: Worsening hypoxemic respiratory failure, currently on partial nonrebreather. Remains lethargic. WBC count increased from 14.6 today 20.7. Chest x-ray shows bilateral worsening infiltrates and small pleural effusions. Sodium 154, weight up by 8 KG. Albumin 1 mg Bumex 1. Also one dose of albumin. Remains in sinus tachycardia. Tmax 101.3 05/01: Patient was intubated yesterday for lack of airway protection, and severe hypoxemic respiratory failure from aspiration pneumonia involving multiple lobes. Patient is on the vent lethargic, no spontaneous eye opening. Chest x- ray remains unchanged. Remains intermittently febrile Tmax 101.3. WBC count improving 05/02: Remains critically ill with no improvement in mental status. Spiking fever of 101.7. Blood culture and sputum culture with staph aureus sputum also growing GNR, WBC count 22,000 now indicating worsening sepsis. Daughter still requesting aggressive care. Palliative care is following 05/03: S/P large area dominant hemisphere CVA. No neurological improvement. Now with pneumonia (infiltrate, fever, leukocytosis) and appropriate abx coverage. She will have a hard time surviving the hip fx, CVA, and pneumonia. Palliative Care needs to be a mainstay of our plan. 05/04: No improvement in neuro status. Sputum C&S allows us to narrow abx coverage to levaquin alone. Lungs remain quite congested. Enteral nutrition tolerated. 05/05: No improvement in neuro status. Moves left arm spontaneously. Flaccid right side. Unresponsive. Persistent mild hypoglycemia - will cut Levemir 50%. Abdomen more distended, check KUB. 05/06: CT head with massive left MCA infarction and > 1 cm shift in right handed woman. She opens eyes, does not track. 05/07: Patient open eyes. Attempts to respond. [place] speaking. Tolerating tube feeds. Positive bowel movement. Volume overloaded. 05/08: Tmax 99.4. Potassium being replaced. Ultrasound gallbladder currently pending. Transaminases are trending downward. Gently diurese. 05/09: Alk phos decreasing. Remains with good urine output. Neurological status not improving. 05/10: Fixed neuro deficit unchanged. Profound CVA. 05/11: Appears to track with eyes today. No improvement in motor function. Remains very edematous, diuretics doubled. 05/12: Continued thick secretions. Afebrile, leukocytosis resolved. 05/13: CT head with completed left MCA stroke, persistent edema and 5 mm shift away. Does not last long on SBTs - major decision now is trach/PEG. 05/14: Daughter has decided to proceed with trach and PEG. I have been pessimistic with her about chances for a meaningful recovery. 05/15: Plan for trach today. No change in neuro status. Still ventilator dependent. 05/16: Trach completed. Await PEG and disposition. 05/17: PEG placed 05/16. Start TFs today after nutrition consult. Work to place patient. 05/18: No improvement. Does open eyes, no focus or tracking. Completed large dominant (left) hemisphere CVA in right handed woman with severe deficit. Medicaid pending status, [facility] is following. 05/19: no improvements in neuro exam. ready for LTAC. will d/c moser and rectal tubes. 05/20: no changes or improvements. very difficult placement due to patient not [place] citizen. 05/21: no improvements. resting on vent overnight due to distress. 05/22: no neurologic changes. no improvements. attempted T-piece which failed after 10 minutes. 05/23: no improvements. poor prognosis. poor neuro exam. still failing weaning trials. 05/24: no improvements or changes. still failing t-piece trials. 05/25: No acute changes of improvement overnight. Failed CPAP due to apnea, tried again currently tolerating. Neurological exam unchanged. 05/26: No improvement in neurological function. 05/27: Patient has required Moser catheter because of breakdown of skin on upper thighs and groin. Urine has become infected, will treat. 05/28: Some drainage from around trach (placed 2 weeks ago). Will change out trach tube and inspect neck wound. I&O straight cath q6h order entered 05/17. 05/29: No improvement, remains obtunded. Failed CPAP trials yesterday and again today due to apnea. Moser placed due to persistent urinary retention 05/30: Obtunded, unresponsive. Failed SBTs, remains ventilator dependent. 05/31: Patient continues to fail SBT failed yesterday due to apnea. Neuro exam remains unchanged. 06/01: No acute changes overnight, 06/02: no changes. ekg done overnight for ? EKG changes seen on telemetry which were not visualized on EKG. Subjective 06/03: no improvements or changes. had long conversation with daughter yesterday. only facility which would accept patient is in [place] and daughter is refusing to allow patient to go there because it is "too far away." Daughter continues to push for aggressive care despite no improvements, and resistant to Hospice. Patient does not need acute inpatient therapy but lacks funding for appropriate disposition. 06/04: No acute events overnight, failed SBT due to apnea. 06/05: No acute events, continues to fail spontaneous breathing trials. Unable to wean 06/06 Currently tolerating CPAP. Will attempt TP today up to 4 hours. No acute events overnight 06/07: Tolerating trach collar/T-piece. Transfer soon. 06/08: Awaiting transfer. 06/09: Remains ventilator dependent. No improvement in neurological function. Objective Vital Signs Date Time Temp Pulse Resp B/P (MAP) Pulse Ox O2 Delivery O2 Flow Rate FiO2 06/09/17 06:00 79 06/09/17 04:31 96 40 06/09/17 04:00 99.0 14 133/64 (87) 06/08/17 19:00 Mechanical Ventilator 06/06/17 08:00 5.00 Intake and Output 06/09/17 06/09/17 06/10/17 08:00 16:00 00:00 Intake Total 1090 ml Output Total 650 ml Balance 440 ml Result Diagram: 06/05/17 0538 Imaging Last Impressions Chest X-Ray 05/07/17 0400 Signed Impressions: Service Date/Time: Sunday, May 07, 2017 04:38 - CONCLUSION: 1. Stable Low-lying ETT with tip approximately 1 cm above the valerie. 2. Mild interval progression of bilateral airspace consolidation exaggerated by patient rotation. 3. Increased small left pleural effusion. Alejo eD La Vega MD Abdomen/Pelvis CT 05/07/17 0000 Signed Impressions: Service Date/Time: Sunday, May 07, 2017 13:23 - CONCLUSION: 1. Large left pneumothorax. 2. Bilateral lower lobe consolidation and bilateral moderate size pleural effusions. 3. Significant soft tissue thickening of the right lateral chest wall and left gluteus muscle. 4. Mild ascites. The findings were called to Dr. Carney. Deangelo Zamora MD Head CT 05/06/17 0000 Signed Impressions: Service Date/Time: Saturday, May 06, 2017 04:18 - CONCLUSION: 1. Evolving large left-sided MCA territory infarct with minimally improved [id number] subfalcine shift. 2. No intercurrent hemorrhage or other acute abnormality. Alejo De La Vega MD Abdomen X-Ray 05/06/17 0000 Signed Impressions: Service Date/Time: Saturday, May 06, 2017 17:42 - CONCLUSION: Dobbhoff feeding tube tip near the gastroduodenal junction. Obdulio Simms MD Hip and Pelvis X-Ray 05/05/17 0000 Signed Impressions: Service Date/Time: Friday, May 05, 2017 10:59 - CONCLUSION: Left proximal femur trochanteric/subtrochanteric fracture lucency visualized. Postoperative changes. Choco Mustafa MD Chest CT 04/30/17 0000 Signed Impressions: Service Date/Time: Sunday, April 30, 2017 09:20 - CONCLUSION: 1. Bilateral pulmonary infiltrates more pronounced within the lower lobes with tiny bilateral pleural effusions. Material seen filling the lower lobe bronchi bilaterally either related to purulent material or perhaps mucus plugging. Deangelo Wren Jr., MD Carotid Artery Ultrasound 04/24/17 0000 Signed Impressions: Service Date/Time: April 09:45 - CONCLUSION: 1. No hemodynamically significant carotid artery stenosis. Arnie Middleton MD Hip X-Ray 04/21/17 0000 Signed Impressions: Service Date/Time: Friday, April 21, 2017 11:36 - CONCLUSION: Fluoroscopic images during placement of intramedullary siomara left femur. Benja Ramsey MD Objective Remarks Gen: 76-year-old female, unresponsive following massive dominant hemisphere stroke. HEENT: mucous membranes moist. Neck: Trach site clean and dry. Supple. Resp: Ventilator dependent. Currently tolerating CPAP Cardiovascular: RRR. No murmurs, no JVD. GI/abdomen: Distended. Nontender. No guarding. BS active. Extremities: Warm, well perfused. Neuro: On no sedation. Unresponsive, no eye opening. Dense right hemiplegia. Withdraws left upper extremity, Withdraws LLE. No change. Pupils 2 mm, react. A/P Assessment and Plan Neuro/Psych: Left MCA CVA - 12 mm of [id number] subfalcine herniation. right-sided hemiplegia Acute encephalopathy History CVA Continue Aspirin 325 mg by mouth daily. On admission, patient was not a candidate for thrombolysis per discussion with neurology and radiology. Repeat head CT 05/05 showed slight improvement in the midline shift and mass effect Neurosurgery consulted 04/30- Dr. López, recommended conservative management. Neurology Dr. Malave has followed Cardiovascular: Hypertension As needed Antihypertensives to keep systolic blood pressure less than to 160 mmHg (when necessary IV labetalol and IV hydralazine) Lisinopril 10 mg twice a day 05/31/17, with improved BP control Echocardiogram 04/24 - EF 50 to 55%. Mild concentric LVH. Pulmonary: Acute hypoxic respiratory failure - aspiration possible HCAP, now chronic vent dependent respiratory failure Large left pneumothorax status post #10 [place] chest tube 05/07 Chronic respiratory failure, tolerating CPAP today. Trial of 4 hour TP Ventilator bundle. Ipratropium/albuterol aerosols every 6 hours with albuterol aerosols every 2 hours Chest tube d/c'd 05/12 Daily SBTs. failing for apnea. will continue attempts GI/liver: Elevated transaminases Hypoalbuminemia Moderate to severe protein calorie malnutrition Continue PEG tube feeding with Glucerna 1.5 goal 45 cc an hour Lansoprazole 30 mg daily for GI regimen Docusate sodium 100 twice a day, Senokot 8.6 twice a day, polyethylene glycol 17 grams twice a day and lactulose 30 cc 4 times a day Previous CT abdomen/pelvis 05/07 - mild ascites. Large left hemothorax. Right greater than left pleural effusion. Endocrine: Diabetes mellitus Detemir 8 units subcutaneous daily. SSI high dose q4h. Holding glimepiride 4 mg by mouth daily /Renal/FEN: Hypokalemia Strict intake output, monitor and replete electrolytes, follow BUN/creatinine. Moser catheter placed for urinary retention on 04/26. Moser removed 05/19 with q6h straight cath. Moser replaced again due to persistent urinary retention. Heme: Chronic Rivaroxaban use Leukocytosis Normocytic anemia Thrombocytosis Follow CBC and coags. On subcutaneous enoxaparin Hemoglobin currently stable. No indications for transfusion of blood proximally at this time ID: [id number] bacteremia Serratia/staph aureus pneumonia C glabrata UTI Citrobacter UTI Pertinent cultures Urine culture 04/26/17 sofie glabrata Blood culture 04/29/17 1 out of 4 bottles staph aureus Sputum culture 04/30/17 staph aureus and Serratia. Blood cultures 2, sputum 1 and urine 05/08 pending -> Serratia, treated. Urine 05/26: Citrobacter Ceftriaxone started 05/26, changed to Cefepime 05/27 based on sensitivity, stopped 06/03/17 MSK: Left Intertroch Hip Fx s/p IMN Vitamin D deficiency Prophylaxis: SCDs. Enoxaparin 40 mg sq daily-cleared by Dr. Malave. GI - lansoprazole Overall impression: Severe dominant hemisphere CVA. No improvement. Poor prognosis. Very difficult wean given age, comorbidities and deconditioning. PEG placed. No change in neuro status. Unable to place and little hope for any meaningful recovery. May be able to move to floor if she tolerates T-piece. Charles Pedraza MD Jun 09, 2017 07:37
[2017-06-09] MEDS: DOCUSATE SODIUM 100 MG/10 ML UDC PO SCH ×2 (09:00→21:00)
[2017-06-09] MEDS: CHOLECALCIFEROL (VIT D3) 5000 UNIT CAP PO SCH (10:08)
[2017-06-09] MEDS: LANSOPRAZOLE SOLUTAB 30 MG TAB NG SCH (10:08)
[2017-06-09] MEDS: INSULIN DETEMIR 100 UNITS/ML VIAL SQ SCH ×2 (10:08→21:00)
[2017-06-09] MEDS: CALCIUM/VITAMIN D 250 MG/125 U TAB PO SCH ×3 (10:08→18:05)
[2017-06-09] MEDS: ENOXAPARIN SODIUM 40 MG/0.4 ML SYRINGE SQ SCH (10:09)
[2017-06-09] MEDS: ASPIRIN 325 MG TAB DOBHOFF SCH (10:09)
[2017-06-09] MEDS: LISINOPRIL 10 MG TAB PO SCH ×2 (10:09→21:00)
[2017-06-09] MEDS: FUROSEMIDE 40 MG/5 ML UNIT DOSE CUP NG SCH (10:10)
[2017-06-09] MEDS: INSULIN ASPART SUPPLEMENTAL SCALE SQ SCH ×4 (10:10→21:00)
[2017-06-09] MEDS: BENEPROTEIN POWDER 1 PACK G-TUBE SCH ×3 (10:11→18:04)
[2017-06-09] MEDS: SODIUM CHLORIDE 0.9% FLUSH 5 ML FLUSH IV FLUSH SCH ×2 (10:11→21:00)
[2017-06-10] VITALS (18 sets, daily range): BP systolic 109–160; BP diastolic 56–71; PULSE 58–85; RESP 14–22; TEMP 98–98.7; O2SAT 93–100
[2017-06-10 05:06] LABS: AUTOMATED NEUTROPHIL # 8.1 TH/MM3 (1.8-7.7); BASOPHIL # 0.2 TH/MM3 (0-0.2); BASOPHIL % 1.2 % (0.0-2.0); EOSINOPHIL # 0.3 TH/MM3 (0-0.4); EOSINOPHIL % 2.5 % (0.0-4.0); HEMATOCRIT 27.7 % (35.0-46.0); HEMOGLOBIN 9.1 GM/DL (11.6-15.3); LYMPH % 30.3 % (9.0-44.0); MEAN CELL VOLUME 92.2 FL (80.0-100.0); MEAN CORPUSCULAR HEMOGLOBIN 30.4 PG (27.0-34.0); MEAN PLATELET VOLUME 8.4 FL (7.0-11.0); MONO % 4.8 % (0.0-8.0); MONOCYTE # 0.6 TH/MM3 (0-0.9); NEUT % 61.2 % (16.0-70.0); PLATELET COUNT 296 TH/MM3 (150-450); RED CELL DISTRIBUTION WIDTH 17.5 % (11.6-17.2); WHITE BLOOD COUNT 13.2 TH/MM3 (4.0-11.0)
[2017-06-10 05:36] LABS: ALT (GPT) 67 U/L (10-53); AST (GOT) 93 U/L (15-37); BICARBONATE 30.7 MEQ/L (21.0-32.0); BLOOD UREA NITROGEN 25 MG/DL (7-18); CALCIUM 8.3 MG/DL (8.5-10.1); CHLORIDE 99 MEQ/L (98-107); CREATININE 0.23 MG/DL (0.50-1.00); GLOMERULAR FILTRATION RATE 295 ML/MIN (>89); GLUCOSE,RANDOM 54 MG/DL (74-106); SODIUM (NA) 135 MEQ/L (136-145)
[2017-06-10 05:48] LABS: ALKALINE PHOSPHATASE 986 U/L (45-117); TOTAL BILIRUBIN ADULT 0.4 MG/DL (0.2-1.0); TOTAL PROTEIN 6.2 GM/DL (6.4-8.2)
[2017-06-10] MEDS: FREE WATER G-TUBE SCH ×2 (06:00)
[2017-06-10 07:10] LABS: BANDS 5 % (0-6); LYMPHOCYTES 21 % (9-44); MONOCYTES 9 % (0-8); MYELOCYTES 2 % (0-0); POLYS (SEG NEUTROPHILS) 61 % (16-70)
[2017-06-10] MEDS: INSULIN ASPART SUPPLEMENTAL SCALE SQ SCH ×4 (08:00→21:00)
[2017-06-10] MEDS: ENOXAPARIN SODIUM 40 MG/0.4 ML SYRINGE SQ SCH (08:44)
[2017-06-10] MEDS: FUROSEMIDE 40 MG/5 ML UNIT DOSE CUP NG SCH (08:45)
[2017-06-10] MEDS: ASPIRIN 325 MG TAB DOBHOFF SCH (08:45)
[2017-06-10] MEDS: CALCIUM/VITAMIN D 250 MG/125 U TAB PO SCH ×3 (08:45→17:19)
[2017-06-10] MEDS: LISINOPRIL 10 MG TAB PO SCH ×2 (08:45→21:35)
[2017-06-10] MEDS: LANSOPRAZOLE SOLUTAB 30 MG TAB NG SCH (08:45)
[2017-06-10] MEDS: CHOLECALCIFEROL (VIT D3) 5000 UNIT CAP PO SCH (08:45)
[2017-06-10] MEDS: SODIUM CHLORIDE 0.9% FLUSH 5 ML FLUSH IV FLUSH SCH ×2 (08:46→21:00)
[2017-06-10] MEDS: DOCUSATE SODIUM 100 MG/10 ML UDC PO SCH ×2 (08:46→21:00)
[2017-06-10] MEDS: BENEPROTEIN POWDER 1 PACK G-TUBE SCH ×3 (08:46→17:26)
[2017-06-10] MEDS: INSULIN DETEMIR 100 UNITS/ML VIAL SQ SCH ×2 (12:21→21:00)
[2017-06-10] MEDS: hydrALAZINE HCL 20 MG/ML VIAL IV PUSH PRN (17:20)
[2017-06-11] VITALS (18 sets, daily range): BP systolic 113–162; BP diastolic 55–72; PULSE 62–81; RESP 14–16; TEMP 98.1–99.8; O2SAT 94–98
[2017-06-11] MEDS: DOCUSATE SODIUM 100 MG/10 ML UDC PO SCH ×2 (09:00→21:00)
[2017-06-11] MEDS: LISINOPRIL 10 MG TAB PO SCH ×2 (09:15→21:00)
[2017-06-11] MEDS: CHOLECALCIFEROL (VIT D3) 5000 UNIT CAP PO SCH (09:15)
[2017-06-11] MEDS: LANSOPRAZOLE SOLUTAB 30 MG TAB NG SCH (09:15)
[2017-06-11] MEDS: CALCIUM/VITAMIN D 250 MG/125 U TAB PO SCH ×3 (09:15→17:54)
[2017-06-11] MEDS: ASPIRIN 325 MG TAB DOBHOFF SCH (09:15)
[2017-06-11] MEDS: ENOXAPARIN SODIUM 40 MG/0.4 ML SYRINGE SQ SCH (09:16)
[2017-06-11] MEDS: FUROSEMIDE 40 MG/5 ML UNIT DOSE CUP NG SCH (09:16)
[2017-06-11] MEDS: INSULIN ASPART SUPPLEMENTAL SCALE SQ SCH ×4 (09:17→21:00)
[2017-06-11] MEDS: BENEPROTEIN POWDER 1 PACK G-TUBE SCH ×3 (09:17→17:54)
[2017-06-11] MEDS: SODIUM CHLORIDE 0.9% FLUSH 5 ML FLUSH IV FLUSH SCH ×2 (09:17→21:00)
[2017-06-11] MEDS: INSULIN DETEMIR 100 UNITS/ML VIAL SQ SCH ×2 (09:18→21:00)
--- NOTE | 2017-06-11 10:48 | HHI.CCPN ---
Subjective Remarks/Hospital Course 04/24: 76-year-old female with a medical history significant for prior stroke, diabetes mellitus who was admitted with DKA and a hip fracture for which she underwent ORIF on 04/21. Patient developed altered mental status and was last noted to be okay around 5:30 AM. Subsequently there was a change in her mental status and she was noted to not be moving her right side for which stroke alert was called. Head CT showed large left MCA territory ischemic infarct with edema. Patient was transferred to the ICU by family medicine service in the critical care consult was requested. I evaluated the patient following arrival to the ICU. At that time she was laying in bed with her eyes open however not following commands and had a dense right hemiplegia. Patient was also evaluated by Dr. Malave from neurology. I further discussed current event with patient's daughter following her arrival to the ICU. Per the daughter patient has been living with her since her stroke in 2014 and does ambulate however has been having problems with memory and incontinence as well as gait difficulties. She does not feel patient would want intubation or tracheostomy or PEG tube. 04/25: Patient remains encephalopathic, awake though not following commands consistently. Dense right hemiplegia persists. Appears to be awake enough to protect airway currently. Patient's daughter rescinded DNR and made a full code last evening. 04/26: Remains encephalopathic, not following commands. On Dobbhoff for tube feeds at 30 cc per hour. Had urinary retention and drained 2 L of urine after placing Moser catheter today. CT head done this morning with large left MCA territory infarct with left to right midline shift and significant cerebral edema. Hyperglycemia noted. Patient given mannitol earlier for increasing cerebral edema. 04/27: Remains encephalopathic, not following commands. On Dobbhoff tube feeds at 30 cc per hour. When into A. fib with RVR last night which responded with Lopressor 5 mg IV 1 dose. 04/28: Remains encephalopathic, arousable, not following commands. Moves left upper extremity spontaneously. Tolerating Dobbhoff tube feeds. Remains on nasal cannula. 04/29: Encephalopathic, eyes be arousable, moves left upper extremity spontaneously and occasionally opens eyes. Dense right hemiplegia and aphasia persists. On nasal cannula. Dobbhoff tube feeds being advanced. Patient was transfused 1 unit PRBCs yesterday. Urine culture with yeast from yesterday for which fluconazole being started. Had brief run of A. fib with RVR which improved with Lopressor IV, currently in sinus rhythm. 04/30: Worsening hypoxemic respiratory failure, currently on partial nonrebreather. Remains lethargic. WBC count increased from 14.6 today 20.7. Chest x-ray shows bilateral worsening infiltrates and small pleural effusions. Sodium 154, weight up by 8 KG. Albumin 1 mg Bumex 1. Also one dose of albumin. Remains in sinus tachycardia. Tmax 101.3 05/01: Patient was intubated yesterday for lack of airway protection, and severe hypoxemic respiratory failure from aspiration pneumonia involving multiple lobes. Patient is on the vent lethargic, no spontaneous eye opening. Chest x- ray remains unchanged. Remains intermittently febrile Tmax 101.3. WBC count improving 05/02: Remains critically ill with no improvement in mental status. Spiking fever of 101.7. Blood culture and sputum culture with staph aureus sputum also growing GNR, WBC count 22,000 now indicating worsening sepsis. Daughter still requesting aggressive care. Palliative care is following 05/03: S/P large area dominant hemisphere CVA. No neurological improvement. Now with pneumonia (infiltrate, fever, leukocytosis) and appropriate abx coverage. She will have a hard time surviving the hip fx, CVA, and pneumonia. Palliative Care needs to be a mainstay of our plan. 05/04: No improvement in neuro status. Sputum C&S allows us to narrow abx coverage to levaquin alone. Lungs remain quite congested. Enteral nutrition tolerated. 05/05: No improvement in neuro status. Moves left arm spontaneously. Flaccid right side. Unresponsive. Persistent mild hypoglycemia - will cut Levemir 50%. Abdomen more distended, check KUB. 05/06: CT head with massive left MCA infarction and > 1 cm shift in right handed woman. She opens eyes, does not track. 05/07: Patient open eyes. Attempts to respond. [place]ij[place] speaking. Tolerating tube feeds. Positive bowel movement. Volume overloaded. 05/08: Tmax 99.4. Potassium being replaced. Ultrasound gallbladder currently pending. Transaminases are trending downward. Gently diurese. 05/09: Alk phos decreasing. Remains with good urine output. Neurological status not improving. 05/10: Fixed neuro deficit unchanged. Profound CVA. 05/11: Appears to track with eyes today. No improvement in motor function. Remains very edematous, diuretics doubled. 05/12: Continued thick secretions. Afebrile, leukocytosis resolved. 05/13: CT head with completed left MCA stroke, persistent edema and 5 mm shift away. Does not last long on SBTs - major decision now is trach/PEG. 05/14: Daughter has decided to proceed with trach and PEG. I have been pessimistic with her about chances for a meaningful recovery. 05/15: Plan for trach today. No change in neuro status. Still ventilator dependent. 05/16: Trach completed. Await PEG and disposition. 05/17: PEG placed 05/16. Start TFs today after nutrition consult. Work to place patient. 05/18: No improvement. Does open eyes, no focus or tracking. Completed large dominant (left) hemisphere CVA in right handed woman with severe deficit. Medicaid pending status, [facility] is following. 05/19: no improvements in neuro exam. ready for LTAC. will d/c moser and rectal tubes. 05/20: no changes or improvements. very difficult placement due to patient not [place] citizen. 05/21: no improvements. resting on vent overnight due to distress. 05/22: no neurologic changes. no improvements. attempted T-piece which failed after 10 minutes. 05/23: no improvements. poor prognosis. poor neuro exam. still failing weaning trials. 05/24: no improvements or changes. still failing t-piece trials. 05/25: No acute changes of improvement overnight. Failed CPAP due to apnea, tried again currently tolerating. Neurological exam unchanged. 05/26: No improvement in neurological function. 05/27: Patient has required Moser catheter because of breakdown of skin on upper thighs and groin. Urine has become infected, will treat. 05/28: Some drainage from around trach (placed 2 weeks ago). Will change out trach tube and inspect neck wound. I&O straight cath q6h order entered 05/17. 05/29: No improvement, remains obtunded. Failed CPAP trials yesterday and again today due to apnea. Moser placed due to persistent urinary retention 05/30: Obtunded, unresponsive. Failed SBTs, remains ventilator dependent. 05/31: Patient continues to fail SBT failed yesterday due to apnea. Neuro exam remains unchanged. 06/01: No acute changes overnight, 06/02: no changes. ekg done overnight for ? EKG changes seen on telemetry which were not visualized on EKG. Subjective 06/03: no improvements or changes. had long conversation with daughter yesterday. only facility which would accept patient is in [place] and daughter is refusing to allow patient to go there because it is "too far away." Daughter continues to push for aggressive care despite no improvements, and resistant to Hospice. Patient does not need acute inpatient therapy but lacks funding for appropriate disposition. 06/04: No acute events overnight, failed SBT due to apnea. 06/05: No acute events, continues to fail spontaneous breathing trials. Unable to wean 06/06 Currently tolerating CPAP. Will attempt TP today up to 4 hours. No acute events overnight 06/07: Tolerating trach collar/T-piece. Transfer soon. 06/08: Awaiting transfer. 06/09: Remains ventilator dependent. No improvement in neurological function. 06/10: No improvement. Daughter is not attending preplanned meetings to discuss disposition. Objective Vital Signs Date Time Temp Pulse Resp B/P (MAP) Pulse Ox O2 Delivery O2 Flow Rate FiO2 06/11/17 07:38 97 30 06/11/17 06:00 65 06/11/17 04:00 98.7 14 162/71 (101) 06/10/17 19:00 Mechanical Ventilator Trach Collar 06/09/17 13:50 5.00 Intake and Output 06/11/17 06/11/17 06/11/17 07:59 15:59 23:59 Intake Total 977 ml Output Total 600 ml Balance 377 ml Result Diagram: 06/10/17 0456 06/10/17 0456 Imaging Last Impressions Chest X-Ray 05/07/17 0400 Signed Impressions: Service Date/Time: Sunday, May 07, 2017 04:38 - CONCLUSION: 1. Stable Low-lying ETT with tip approximately 1 cm above the valerie. 2. Mild interval progression of bilateral airspace consolidation exaggerated by patient rotation. 3. Increased small left pleural effusion. Alejo De La Vega MD Abdomen/Pelvis CT 05/07/17 0000 Signed Impressions: Service Date/Time: Sunday, May 07, 2017 13:23 - CONCLUSION: 1. Large left pneumothorax. 2. Bilateral lower lobe consolidation and bilateral moderate size pleural effusions. 3. Significant soft tissue thickening of the right lateral chest wall and left gluteus muscle. 4. Mild ascites. The findings were called to Dr. Carney. Deangelo Zamora MD Head CT 05/06/17 0000 Signed Impressions: Service Date/Time: Saturday, May 06, 2017 04:18 - CONCLUSION: 1. Evolving large left-sided MCA territory infarct with minimally improved [id number] subfalcine shift. 2. No intercurrent hemorrhage or other acute abnormality. Alejo De La Vega MD Abdomen X-Ray 05/06/17 0000 Signed Impressions: Service Date/Time: Saturday, May 06, 2017 17:42 - CONCLUSION: Dobbhoff feeding tube tip near the gastroduodenal junction. Obdulio Simms MD Hip and Pelvis X-Ray 05/05/17 0000 Signed Impressions: Service Date/Time: Friday, May 05, 2017 10:59 - CONCLUSION: Left proximal femur trochanteric/subtrochanteric fracture lucency visualized. Postoperative changes. Choco Mustafa MD Chest CT 04/30/17 0000 Signed Impressions: Service Date/Time: Sunday, April 30, 2017 09:20 - CONCLUSION: 1. Bilateral pulmonary infiltrates more pronounced within the lower lobes with tiny bilateral pleural effusions. Material seen filling the lower lobe bronchi bilaterally either related to purulent material or perhaps mucus plugging. Deangelo Wren Jr., MD Carotid Artery Ultrasound 04/24/17 0000 Signed Impressions: Service Date/Time: April 09:45 - CONCLUSION: 1. No hemodynamically significant carotid artery stenosis. Arnie Middleton MD Hip X-Ray 04/21/17 0000 Signed Impressions: Service Date/Time: Friday, April 21, 2017 11:36 - CONCLUSION: Fluoroscopic images during placement of intramedullary siomara left femur. Benja Ramsey MD Objective Remarks Gen: 76-year-old female, remains unresponsive following massive dominant hemisphere stroke. HEENT: mucous membranes moist. Neck: Trach site clean and dry. Supple. Resp: Ventilator dependent. Currently tolerating CPAP Cardiovascular: RRR. No murmurs, no JVD. GI/abdomen: Distended. Nontender. No guarding. BS active. Extremities: Warm, well perfused. Neuro: On no sedation. Unresponsive, no eye opening. Dense right hemiplegia. Withdraws left upper extremity, Withdraws LLE. No change. Pupils 2 mm, react. A/P Assessment and Plan Neuro/Psych: Left MCA CVA - 12 mm of [id number] subfalcine herniation. right-sided hemiplegia Acute encephalopathy History CVA Continue Aspirin 325 mg by mouth daily. On admission, patient was not a candidate for thrombolysis per discussion with neurology and radiology. Repeat head CT 05/05 showed slight improvement in the midline shift and mass effect Neurosurgery consulted 04/30- Dr. López, recommended conservative management. Neurology Dr. Malave has followed Cardiovascular: Hypertension As needed Antihypertensives to keep systolic blood pressure less than to 160 mmHg (when necessary IV labetalol and IV hydralazine) Lisinopril 10 mg twice a day 05/31/17, with improved BP control Echocardiogram 04/24 - EF 50 to 55%. Mild concentric LVH. Pulmonary: Acute hypoxic respiratory failure - aspiration possible HCAP, now chronic vent dependent respiratory failure Large left pneumothorax status post #10 Icelandic chest tube 05/07 Chronic respiratory failure, tolerating CPAP today. Trial of 4 hour TP Ventilator bundle. Ipratropium/albuterol aerosols every 6 hours with albuterol aerosols every 2 hours Chest tube d/c'd 05/12 Daily SBTs. failing for apnea. will continue attempts GI/liver: Elevated transaminases Hypoalbuminemia Moderate to severe protein calorie malnutrition Continue PEG tube feeding with Glucerna 1.5 goal 45 cc an hour Lansoprazole 30 mg daily for GI regimen Docusate sodium 100 twice a day, Senokot 8.6 twice a day, polyethylene glycol 17 grams twice a day and lactulose 30 cc 4 times a day Previous CT abdomen/pelvis 05/07 - mild ascites. Large left hemothorax. Right greater than left pleural effusion. Endocrine: Diabetes mellitus Detemir 8 units subcutaneous daily. SSI high dose q4h. Holding glimepiride 4 mg by mouth daily /Renal/FEN: Hypokalemia Strict intake output, monitor and replete electrolytes, follow BUN/creatinine. Moser catheter placed for urinary retention on 04/26. Moser removed 05/19 with q6h straight cath. Moser replaced again due to persistent urinary retention. Heme: Chronic Rivaroxaban use Leukocytosis Normocytic anemia Thrombocytosis Follow CBC and coags. On subcutaneous enoxaparin Hemoglobin currently stable. No indications for transfusion of blood proximally at this time ID: MSSA bacteremia Serratia/staph aureus pneumonia C glabrata UTI Citrobacter UTI Pertinent cultures Urine culture 04/26/17 sofie glabrata Blood culture 04/29/17 1 out of 4 bottles staph aureus Sputum culture 04/30/17 staph aureus and Serratia. Blood cultures 2, sputum 1 and urine 05/08 pending -> Serratia, treated. Urine 05/26: Citrobacter Ceftriaxone started 05/26, changed to Cefepime 05/27 based on sensitivity, stopped 06/03/17 MSK: Left Intertroch Hip Fx s/p IMN Vitamin D deficiency Prophylaxis: SCDs. Enoxaparin 40 mg sq daily-cleared by Dr. Malave. GI - lansoprazole Overall impression: Severe dominant hemisphere CVA. No improvement. Poor prognosis. Very difficult wean given age, comorbidities and deconditioning. PEG placed. No change in neuro status. Unable to place and little hope for any meaningful recovery. May be able to move to floor if she tolerates T-piece. Alk phos elevation noted, bili normal. Charles Pedraza MD Jun 11, 2017 10:48
--- NOTE | 2017-06-11 13:18 | HHI.PR ---
Subjective Subjective Comments Patient resting comfortably in bed. No pain behaviors noted. Not following commands to open eyes or attempting to verbalize. Allergies: Coded Allergies: No Known Allergies (Unverified , 04/20/17) Review of Systems All other ROS: Unable to obtain Exam I&O / VS Vital Signs Date Time Temp Pulse Resp B/P (MAP) Pulse Ox O2 Delivery O2 Flow Rate FiO2 06/11/17 11:32 96 30 06/11/17 10:00 72 06/11/17 08:00 64 06/11/17 08:00 64 06/11/17 08:00 30 06/11/17 08:00 99.2 64 14 157/72 (100) 97 06/11/17 07:38 97 30 06/11/17 07:00 95 Mechanical Ventilator 30 Trach Collar 06/11/17 06:00 65 06/11/17 04:24 97 30 06/11/17 04:00 30 06/11/17 04:00 68 06/11/17 04:00 98.7 68 14 162/71 (101) 98 06/11/17 02:00 67 06/11/17 01:11 96 30 06/11/17 00:00 98.1 71 14 151/70 (97) 97 06/11/17 00:00 40 06/11/17 00:00 76 06/10/17 22:12 96 30 06/10/17 22:00 72 06/10/17 20:56 97 30 06/10/17 20:00 74 06/10/17 20:00 40 06/10/17 20:00 98.7 72 14 136/62 (86) 96 06/10/17 19:00 97 Mechanical Ventilator 40 Trach Collar 06/10/17 18:00 85 06/10/17 16:20 93 30 06/10/17 16:00 98.6 72 14 160/71 (100) 94 06/10/17 16:00 72 06/10/17 16:00 40 06/10/17 14:00 61 General: No acute distress, Other (trach on T-piece trial) Cardiovascular: Normal rate Musculoskeletal: ROM (Grossly within functional limits) Psychiatric: Other (No restlessness or agitation noted) Neurologic: Speech (Not attempting to verbalize) Motor: Right Upper Extremity (Flaccid), Left Upper Extremity (Spontaneously moving but not following commands), Right Lower Extremity (Flaccid), Left Lower Extremity (No spontaneous or voluntary movement) Clonus: Negative Objective Micro and Labs Date/Time Source Procedure Growth Status 05/08/17 04:44 Blood Peripheral Aerobic Blood Culture - Final NO GROWTH IN 5 DAYS Complete 05/08/17 04:44 Blood Peripheral Anaerobic Blood Culture - Final NO GROWTH IN 5 DAYS Complete 05/29/17 17:15 Stool Stool Stool Occult Blood (JEFFREY) - Final HEMOCCULT NEGATIVE Complete 05/07/17 21:30 Sputum Endotracheal Gram Stain - Final Complete 05/07/17 21:30 Sputum Culture - Final Serratia Marcescens Complete 05/25/17 15:00 Urine Catheterized Urine Urine Culture - Final Citrobacter Freundii Complete Assessment and Plan Diagnosis: (1) Acute ischemic left middle cerebral artery (MCA) stroke ICD Codes: I63.512 - Cerebral infarction due to unspecified occlusion or stenosis of left middle cerebral artery Status: Acute (2) Right hemiplegia ICD Codes: G81.91 - Hemiplegia, unspecified affecting right dominant side Status: Acute (3) Aphasia ICD Codes: R47.01 - Aphasia Status: Acute (4) Hip fracture ICD Codes: S72.009A - Fracture of unspecified part of neck of unspecified femur , initial encounter for closed fracture Status: Resolved Qualifiers: Encounter type: subsequent encounter Fracture type: closed Laterality: left Assessment 1. Left middle cerebral artery stroke with right flaccid hemiplegia, aphasia and dysphagia. Hospital day #52. 2. Status post trach on vent 3. Status post PEG 4. Left intertrochanteric hip fracture status post IM nail 04/21/17 5. Diabetes mellitus with DKA on admission 6. Hypertension 7. Previous stroke Plan 1. Physical therapy providing range of motion. No functional progress noted to date. 2. SCDs in place for DVT prophylaxis 3. Reposition q 2 hours and monitor skin integrity. 4. Palliative care and case management working with family on long-term care. 5. Will continue to follow while hospitalized and at discharge as appropriate Li Perrin MD Jun 11, 2017 13:18
[2017-06-12] VITALS (18 sets, daily range): BP systolic 116–178; BP diastolic 59–81; PULSE 64–88; RESP 14–31; TEMP 97.8–99.4; O2SAT 93–99
[2017-06-12] MEDS: hydrALAZINE HCL 20 MG/ML VIAL IV PUSH PRN (03:23)
[2017-06-12] MEDS ORDERED: SODIUM CHLORIDE 1 GRAM TAB PEG ONE (07:00)
--- NOTE | 2017-06-12 07:06 | HHI.CCPN ---
Subjective Remarks/Hospital Course 04/24: 76-year-old female with a medical history significant for prior stroke, diabetes mellitus who was admitted with DKA and a hip fracture for which she underwent ORIF on 04/21. Patient developed altered mental status and was last noted to be okay around 5:30 AM. Subsequently there was a change in her mental status and she was noted to not be moving her right side for which stroke alert was called. Head CT showed large left MCA territory ischemic infarct with edema. Patient was transferred to the ICU by family medicine service in the critical care consult was requested. I evaluated the patient following arrival to the ICU. At that time she was laying in bed with her eyes open however not following commands and had a dense right hemiplegia. Patient was also evaluated by Dr. Malave from neurology. I further discussed current event with patient's daughter following her arrival to the ICU. Per the daughter patient has been living with her since her stroke in 2014 and does ambulate however has been having problems with memory and incontinence as well as gait difficulties. She does not feel patient would want intubation or tracheostomy or PEG tube. 04/25: Patient remains encephalopathic, awake though not following commands consistently. Dense right hemiplegia persists. Appears to be awake enough to protect airway currently. Patient's daughter rescinded DNR and made a full code last evening. 04/26: Remains encephalopathic, not following commands. On Dobbhoff for tube feeds at 30 cc per hour. Had urinary retention and drained 2 L of urine after placing Moser catheter today. CT head done this morning with large left MCA territory infarct with left to right midline shift and significant cerebral edema. Hyperglycemia noted. Patient given mannitol earlier for increasing cerebral edema. 04/27: Remains encephalopathic, not following commands. On Dobbhoff tube feeds at 30 cc per hour. When into A. fib with RVR last night which responded with Lopressor 5 mg IV 1 dose. 04/28: Remains encephalopathic, arousable, not following commands. Moves left upper extremity spontaneously. Tolerating Dobbhoff tube feeds. Remains on nasal cannula. 04/29: Encephalopathic, eyes be arousable, moves left upper extremity spontaneously and occasionally opens eyes. Dense right hemiplegia and aphasia persists. On nasal cannula. Dobbhoff tube feeds being advanced. Patient was transfused 1 unit PRBCs yesterday. Urine culture with yeast from yesterday for which fluconazole being started. Had brief run of A. fib with RVR which improved with Lopressor IV, currently in sinus rhythm. 04/30: Worsening hypoxemic respiratory failure, currently on partial nonrebreather. Remains lethargic. WBC count increased from 14.6 today 20.7. Chest x-ray shows bilateral worsening infiltrates and small pleural effusions. Sodium 154, weight up by 8 KG. Albumin 1 mg Bumex 1. Also one dose of albumin. Remains in sinus tachycardia. Tmax 101.3 05/01: Patient was intubated yesterday for lack of airway protection, and severe hypoxemic respiratory failure from aspiration pneumonia involving multiple lobes. Patient is on the vent lethargic, no spontaneous eye opening. Chest x- ray remains unchanged. Remains intermittently febrile Tmax 101.3. WBC count improving 05/02: Remains critically ill with no improvement in mental status. Spiking fever of 101.7. Blood culture and sputum culture with staph aureus sputum also growing GNR, WBC count 22,000 now indicating worsening sepsis. Daughter still requesting aggressive care. Palliative care is following 05/03: S/P large area dominant hemisphere CVA. No neurological improvement. Now with pneumonia (infiltrate, fever, leukocytosis) and appropriate abx coverage. She will have a hard time surviving the hip fx, CVA, and pneumonia. Palliative Care needs to be a mainstay of our plan. 05/04: No improvement in neuro status. Sputum C&S allows us to narrow abx coverage to levaquin alone. Lungs remain quite congested. Enteral nutrition tolerated. 05/05: No improvement in neuro status. Moves left arm spontaneously. Flaccid right side. Unresponsive. Persistent mild hypoglycemia - will cut Levemir 50%. Abdomen more distended, check KUB. 05/06: CT head with massive left MCA infarction and > 1 cm shift in right handed woman. She opens eyes, does not track. 05/07: Patient open eyes. Attempts to respond. [place] speaking. Tolerating tube feeds. Positive bowel movement. Volume overloaded. 05/08: Tmax 99.4. Potassium being replaced. Ultrasound gallbladder currently pending. Transaminases are trending downward. Gently diurese. 05/09: Alk phos decreasing. Remains with good urine output. Neurological status not improving. 05/10: Fixed neuro deficit unchanged. Profound CVA. 05/11: Appears to track with eyes today. No improvement in motor function. Remains very edematous, diuretics doubled. 05/12: Continued thick secretions. Afebrile, leukocytosis resolved. 05/13: CT head with completed left MCA stroke, persistent edema and 5 mm shift away. Does not last long on SBTs - major decision now is trach/PEG. 05/14: Daughter has decided to proceed with trach and PEG. I have been pessimistic with her about chances for a meaningful recovery. 05/15: Plan for trach today. No change in neuro status. Still ventilator dependent. 05/16: Trach completed. Await PEG and disposition. 05/17: PEG placed 05/16. Start TFs today after nutrition consult. Work to place patient. 05/18: No improvement. Does open eyes, no focus or tracking. Completed large dominant (left) hemisphere CVA in right handed woman with severe deficit. Medicaid pending status, [facility] is following. 05/19: no improvements in neuro exam. ready for LTAC. will d/c moser and rectal tubes. 05/20: no changes or improvements. very difficult placement due to patient not [place] citizen. 05/21: no improvements. resting on vent overnight due to distress. 05/22: no neurologic changes. no improvements. attempted T-piece which failed after 10 minutes. 05/23: no improvements. poor prognosis. poor neuro exam. still failing weaning trials. 05/24: no improvements or changes. still failing t-piece trials. 05/25: No acute changes of improvement overnight. Failed CPAP due to apnea, tried again currently tolerating. Neurological exam unchanged. 05/26: No improvement in neurological function. 05/27: Patient has required Moser catheter because of breakdown of skin on upper thighs and groin. Urine has become infected, will treat. 05/28: Some drainage from around trach (placed 2 weeks ago). Will change out trach tube and inspect neck wound. I&O straight cath q6h order entered 05/17. 05/29: No improvement, remains obtunded. Failed CPAP trials yesterday and again today due to apnea. Moser placed due to persistent urinary retention 05/30: Obtunded, unresponsive. Failed SBTs, remains ventilator dependent. 05/31: Patient continues to fail SBT failed yesterday due to apnea. Neuro exam remains unchanged. 06/01: No acute changes overnight, 06/02: no changes. ekg done overnight for ? EKG changes seen on telemetry which were not visualized on EKG. 06/03: no improvements or changes. had long conversation with daughter yesterday. only facility which would accept patient is in [place] and daughter is refusing to allow patient to go there because it is "too far away." Daughter continues to push for aggressive care despite no improvements, and resistant to Hospice. Patient does not need acute inpatient therapy but lacks funding for appropriate disposition. 06/04: No acute events overnight, failed SBT due to apnea. 06/05: No acute events, continues to fail spontaneous breathing trials. Unable to wean 06/06 Currently tolerating CPAP. Will attempt TP today up to 4 hours. No acute events overnight 06/07: Tolerating trach collar/T-piece. Transfer soon. 06/08: Awaiting transfer. 06/09: Remains ventilator dependent. No improvement in neurological function. 06/10: No improvement. Daughter is not attending preplanned meetings to discuss disposition. Subjective 06/12: Afebrile. Neurologically stable and unchanged. Noted sodium 135. Adding sodium chloride tablets 1 today. Not on free water.. Tolerating tube feeds at goal 45 cc an hour. Objective Vital Signs Date Time Temp Pulse Resp B/P (MAP) Pulse Ox O2 Delivery O2 Flow Rate FiO2 06/12/17 04:30 94 30 06/12/17 04:00 99.0 65 14 165/72 (103) 06/11/17 19:00 Mechanical Ventilator Trach Collar 06/09/17 13:50 5.00 Result Diagram: 06/10/17 0456 06/10/17 0456 Other Results Microbiology Date/Time Source Procedure Growth Status 05/08/17 04:44 Blood Peripheral Aerobic Blood Culture - Final NO GROWTH IN 5 DAYS Complete 05/08/17 04:44 Blood Peripheral Anaerobic Blood Culture - Final NO GROWTH IN 5 DAYS Complete 05/29/17 17:15 Stool Stool Stool Occult Blood (JEFFREY) - Final HEMOCCULT NEGATIVE Complete 05/07/17 21:30 Sputum Endotracheal Gram Stain - Final Complete 05/07/17 21:30 Sputum Culture - Final Serratia Marcescens Complete 05/25/17 15:00 Urine Catheterized Urine Urine Culture - Final Citrobacter Freundii Complete Imaging Last Impressions Head CT 05/15/17 0000 Signed Impressions: Service Date/Time: May 19:59 - CONCLUSION: 1. 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 2. No bleed or new/acute infarct. Obdulio Simms MD Chest X-Ray 05/15/17 0000 Signed Impressions: Service Date/Time: May 12:38 - CONCLUSION: 1. A tracheostomy tube in good position with its tip 2 cm above the valerie. 2. Stable scattered pulmonary infiltrates bilaterally. 3. Dobbhoff feeding tube has its tip in the distal stomach. Enzo Farooq MD Abdomen X-Ray 05/10/17 0000 Signed Impressions: Service Date/Time: Wednesday, May 10, 2017 22:08 - CONCLUSION: Tip of Dobbhoff catheter is in the antrum of the stomach. Sage Adler MD Gall Bladder Ultrasound 05/08/17 0000 Signed Impressions: Service Date/Time: May 08:23 - CONCLUSION: Focally unremarkable appearance of the gallbladder Obdulio Chun MD Abdomen/Pelvis CT 05/07/17 0000 Signed Impressions: Service Date/Time: Sunday, May 07, 2017 13:23 - CONCLUSION: 1. Large left pneumothorax. 2. Bilateral lower lobe consolidation and bilateral moderate size pleural effusions. 3. Significant soft tissue thickening of the right lateral chest wall and left gluteus muscle. 4. Mild ascites. The findings were called to Dr. Carney. Deangelo Zamora MD Hip and Pelvis X-Ray 05/05/17 0000 Signed Impressions: Service Date/Time: Friday, May 05, 2017 10:59 - CONCLUSION: Left proximal femur trochanteric/subtrochanteric fracture lucency visualized. Postoperative changes. Choco Mustafa MD Chest CT 04/30/17 0000 Signed Impressions: Service Date/Time: Sunday, April 30, 2017 09:20 - CONCLUSION: 1. Bilateral pulmonary infiltrates more pronounced within the lower lobes with tiny bilateral pleural effusions. Material seen filling the lower lobe bronchi bilaterally either related to purulent material or perhaps mucus plugging. Deangelo Wren Jr., MD Carotid Artery Ultrasound 04/24/17 0000 Signed Impressions: Service Date/Time: April 09:45 - CONCLUSION: 1. No hemodynamically significant carotid artery stenosis. Arnie Middleton MD Hip X-Ray 04/21/17 0000 Signed Impressions: Service Date/Time: Friday, April 21, 2017 11:36 - CONCLUSION: Fluoroscopic images during placement of intramedullary siomara left femur. Benja Ramsey MD Objective Remarks Gen: 76-year-old female, remains unresponsive following massive left MCA dominant hemisphere stroke. HEENT: mucous membranes moist. And pink. Oropharynx without erythema. No thrush. Neck: Trach site clean and dry. #8 Shiley. Supple. Resp: Ventilator dependent. Currently tolerating CPAP but essentially clear Cardiovascular: RRR. No murmurs, no JVD. GI/abdomen: Slightly distended. Nontender. No guarding. BS active. Extremities: Warm, well perfused. Neuro: On no sedation. Unresponsive, no eye opening. Dense right hemiplegia. Withdraws left upper extremity, Withdraws LLE. No change. Pupils 2 mm, react. A/P Assessment and Plan Neuro/Psych: Left MCA CVA - 5.5 mm of [id number] subfalcine herniation. right-sided hemiplegia Acute encephalopathy History CVA Continue Aspirin 325 mg by mouth daily. On admission, patient was not a candidate for thrombolysis per discussion with neurology and radiology. Repeat head CT 05/15 showed slight improvement in the midline shift now 5.5 mm and mass effect Neurosurgery consulted 04/30- Dr. López, recommended conservative management. Neurology Dr. Malave has followed Cardiovascular: Hypertension As needed Antihypertensives to keep systolic blood pressure less than to 160 mmHg (when necessary IV labetalol and IV hydralazine) Lisinopril 10 mg twice a day 05/31/17, with improved BP control Echocardiogram 04/24 - EF 50 to 55%. Mild concentric LVH. Pulmonary: Acute hypoxic respiratory failure - aspiration possible HCAP, now chronic vent dependent respiratory failure Large left pneumothorax status post #10 [place] chest tube 05/07 Chronic respiratory failure, currently on PRVC 14/450//30 PSV trials as tolerated and transition to T piece as able Ventilator bundle. Ipratropium/albuterol aerosols every 6 hours with albuterol aerosols every 2 hours Chest tube d/c'd 09/11 Daily SBTs. failing for apnea. will continue attempts GI/liver: Elevated transaminases Hypoalbuminemia Moderate to severe protein calorie malnutrition Continue PEG tube feeding with Glucerna 1.5 goal 45 cc an hour Lansoprazole 30 mg daily for GI regimen Previous CT abdomen/pelvis 05/07 - mild ascites. Large left hemothorax. Right greater than left pleural effusion. Endocrine: Diabetes mellitus Detemir 7 units subcutaneous daily. SSI high dose q4h. 4 units sliding scale insulin past 24 hours Holding glimepiride 4 mg by mouth daily /Renal/FEN: Hyponatremia Strict intake output, monitor and replete electrolytes, follow BUN/creatinine. Moser catheter placed for urinary retention on 04/26. Moser removed 05/19 with q6h straight cath. Moser replaced again due to persistent urinary retention. Heme: Chronic Rivaroxaban use Leukocytosis Normocytic anemia Thrombocytosis Follow CBC and coags. On subcutaneous enoxaparin Hemoglobin currently stable. No indications for transfusion of blood proximally at this time ID: [id number] bacteremia Serratia/staph aureus pneumonia C glabrata UTI Citrobacter UTI Pertinent cultures Urine culture 04/26/17 sofie glabrata Blood culture 04/29/17 1 out of 4 bottles staph aureus Sputum culture 04/30/17 staph aureus and Serratia. Blood cultures 2, sputum 1 and urine 05/08 pending -> Serratia, treated. Urine 05/26: Citrobacter Ceftriaxone started 05/26, changed to Cefepime 05/27 based on sensitivity, stopped 06/03/17 MSK: Left Intertroch Hip Fx s/p IMN Vitamin D deficiency Prophylaxis: SCDs. Enoxaparin 40 mg sq daily-cleared by Dr. Malave. GI - lansoprazole Overall impression: Severe dominant hemisphere CVA. No improvement. Poor prognosis. Very difficult wean given age, comorbidities and deconditioning. PEG placed. No change in neuro status. Unable to place and little hope for any meaningful recovery. May be able to move to floor if she tolerates T-piece. Alk phos elevation noted, bili normal. Level I follow-up Sal Carney MD Jun 12, 2017 07:06
[2017-06-12] MEDS: ARTIFICIAL TEARS OPTH SOLN 15 ML BTL EACH EYE SCH ×3 (07:15→20:25)
[2017-06-12] MEDS: RESP: ALBUTEROL 2.5 MG/IPRATROPIUM 0.5 MG NEB (SCH) NEB ×3 (08:27→20:26)
[2017-06-12] MEDS: INSULIN DETEMIR 100 UNITS/ML VIAL SQ SCH ×2 (09:00→20:25)
[2017-06-12] MEDS: SODIUM CHLORIDE 0.9% FLUSH 5 ML FLUSH IV FLUSH SCH ×2 (09:00→20:24)
[2017-06-12] MEDS: BENEPROTEIN POWDER 1 PACK G-TUBE SCH ×3 (09:00→17:58)
[2017-06-12] MEDS: DOCUSATE SODIUM 100 MG/10 ML UDC PO SCH ×2 (09:00→20:24)
[2017-06-12] MEDS: CHOLECALCIFEROL (VIT D3) 5000 UNIT CAP PO SCH (09:41)
[2017-06-12] MEDS: LANSOPRAZOLE SOLUTAB 30 MG TAB NG SCH (09:41)
[2017-06-12] MEDS: LISINOPRIL 10 MG TAB PO SCH ×2 (09:41→20:24)
[2017-06-12] MEDS: ASPIRIN 325 MG TAB DOBHOFF SCH (09:41)
[2017-06-12] MEDS: CALCIUM/VITAMIN D 250 MG/125 U TAB PO SCH ×3 (09:42→17:58)
[2017-06-12] MEDS: ENOXAPARIN SODIUM 40 MG/0.4 ML SYRINGE SQ SCH (09:42)
[2017-06-12] MEDS ORDERED: INSULIN ASPART 1,000 UNITS/10 ML VIAL SQ ONE (10:00)
[2017-06-12] MEDS: FUROSEMIDE 40 MG/5 ML UNIT DOSE CUP NG SCH (10:13)
[2017-06-12] MEDS: INSULIN ASPART SUPPLEMENTAL SCALE SQ SCH ×2 (12:00→17:58)
[2017-06-13] VITALS (16 sets, daily range): BP systolic 107–150; BP diastolic 53–69; PULSE 64–89; RESP 14–32; TEMP 98.2–100.2; O2SAT 94–100
[2017-06-13] MEDS: INSULIN ASPART SUPPLEMENTAL SCALE SQ SCH ×5 (02:17→23:50)
[2017-06-13] MEDS: RESP: ALBUTEROL 2.5 MG/IPRATROPIUM 0.5 MG NEB (SCH) NEB ×4 (02:57→21:10)
--- NOTE | 2017-06-13 03:20 | RADRPT ---
EXAM DATE/TIME: 06/13/2017 01:32 [facility] COMPARISON: CHEST SINGLE AP, May 15, 2017, 12:38. INDICATIONS : Evaluate for respiratory failure. MEDICAL HISTORY : Hypertension. CVA. Confusion. Incontinence. Diabetes. Anxiety. SURGICAL HISTORY : Blood transfusions. ENCOUNTER: Initial ACUITY: 2 days PAIN SCORE: Non-responsive. LOCATION: chest FINDINGS: A single view of the chest demonstrates tracheostomy in good position. Scattered subsegmental air spa ce disease in the lungs. No pneumothorax or significant effusion. CONCLUSION: 1. Tracheostomy with scattered airspace disease in the lungs similar to prior examination. Jaime Velasquez MD on June 13, 2017 at 3:16 Board Certified Radiologist. This report was verified electronically.
[2017-06-13] MEDS: hydrALAZINE HCL 20 MG/ML VIAL IV PUSH PRN ×2 (03:26→23:50)
[2017-06-13] MEDS: ARTIFICIAL TEARS OPTH SOLN 15 ML BTL EACH EYE SCH ×3 (05:50→21:37)
[2017-06-13 05:53] LABS: AUTOMATED NEUTROPHIL # 6.8 TH/MM3 (1.8-7.7); BASOPHIL # 0.1 TH/MM3 (0-0.2); BASOPHIL % 1.2 % (0.0-2.0); EOSINOPHIL # 0.2 TH/MM3 (0-0.4); EOSINOPHIL % 1.8 % (0.0-4.0); HEMATOCRIT 29.7 % (35.0-46.0); HEMOGLOBIN 9.4 GM/DL (11.6-15.3); LYMPH % 29.8 % (9.0-44.0); LYMPHOCYTE # 3.3 TH/MM3 (1.0-4.8); MEAN CELL VOLUME 94.8 FL (80.0-100.0); MEAN CORPUSCULAR HEMOGLOBIN 29.9 PG (27.0-34.0); MEAN CORPUSCULAR HGB CONC 31.5 % (32.0-36.0); MEAN PLATELET VOLUME 9.9 FL (7.0-11.0); MONO % 6.5 % (0.0-8.0); MONOCYTE # 0.7 TH/MM3 (0-0.9); NEUT % 60.7 % (16.0-70.0); PLATELET COUNT 294 TH/MM3 (150-450); RED BLOOD COUNT 3.13 MIL/MM3 (4.00-5.30); RED CELL DISTRIBUTION WIDTH 17.4 % (11.6-17.2); WHITE BLOOD COUNT 11.2 TH/MM3 (4.0-11.0)
[2017-06-13 08:17] LABS: BANDS 8 % (0-6); BASOPHILS 1 % (0-2); LYMPHOCYTES 19 % (9-44); MONOCYTES 3 % (0-8); NEUTROPHIL # MANUAL DIFF 8.3 TH/MM3 (1.8-7.7); POLYS (SEG NEUTROPHILS) 66 % (16-70)
--- NOTE | 2017-06-13 08:48 | HHI.CCPN ---
Subjective Remarks/Hospital Course 04/24: 76-year-old female with a medical history significant for prior stroke, diabetes mellitus who was admitted with DKA and a hip fracture for which she underwent ORIF on 04/21. Patient developed altered mental status and was last noted to be okay around 5:30 AM. Subsequently there was a change in her mental status and she was noted to not be moving her right side for which stroke alert was called. Head CT showed large left MCA territory ischemic infarct with edema. Patient was transferred to the ICU by family medicine service in the critical care consult was requested. I evaluated the patient following arrival to the ICU. At that time she was laying in bed with her eyes open however not following commands and had a dense right hemiplegia. Patient was also evaluated by Dr. Malave from neurology. I further discussed current event with patient's daughter following her arrival to the ICU. Per the daughter patient has been living with her since her stroke in 2014 and does ambulate however has been having problems with memory and incontinence as well as gait difficulties. She does not feel patient would want intubation or tracheostomy or PEG tube. 04/25: Patient remains encephalopathic, awake though not following commands consistently. Dense right hemiplegia persists. Appears to be awake enough to protect airway currently. Patient's daughter rescinded DNR and made a full code last evening. 04/26: Remains encephalopathic, not following commands. On Dobbhoff for tube feeds at 30 cc per hour. Had urinary retention and drained 2 L of urine after placing Moser catheter today. CT head done this morning with large left MCA territory infarct with left to right midline shift and significant cerebral edema. Hyperglycemia noted. Patient given mannitol earlier for increasing cerebral edema. 04/27: Remains encephalopathic, not following commands. On Dobbhoff tube feeds at 30 cc per hour. When into A. fib with RVR last night which responded with Lopressor 5 mg IV 1 dose. 04/28: Remains encephalopathic, arousable, not following commands. Moves left upper extremity spontaneously. Tolerating Dobbhoff tube feeds. Remains on nasal cannula. 04/29: Encephalopathic, eyes be arousable, moves left upper extremity spontaneously and occasionally opens eyes. Dense right hemiplegia and aphasia persists. On nasal cannula. Dobbhoff tube feeds being advanced. Patient was transfused 1 unit PRBCs yesterday. Urine culture with yeast from yesterday for which fluconazole being started. Had brief run of A. fib with RVR which improved with Lopressor IV, currently in sinus rhythm. 04/30: Worsening hypoxemic respiratory failure, currently on partial nonrebreather. Remains lethargic. WBC count increased from 14.6 today 20.7. Chest x-ray shows bilateral worsening infiltrates and small pleural effusions. Sodium 154, weight up by 8 KG. Albumin 1 mg Bumex 1. Also one dose of albumin. Remains in sinus tachycardia. Tmax 101.3 05/01: Patient was intubated yesterday for lack of airway protection, and severe hypoxemic respiratory failure from aspiration pneumonia involving multiple lobes. Patient is on the vent lethargic, no spontaneous eye opening. Chest x- ray remains unchanged. Remains intermittently febrile Tmax 101.3. WBC count improving 05/02: Remains critically ill with no improvement in mental status. Spiking fever of 101.7. Blood culture and sputum culture with staph aureus sputum also growing GNR, WBC count 22,000 now indicating worsening sepsis. Daughter still requesting aggressive care. Palliative care is following 05/03: S/P large area dominant hemisphere CVA. No neurological improvement. Now with pneumonia (infiltrate, fever, leukocytosis) and appropriate abx coverage. She will have a hard time surviving the hip fx, CVA, and pneumonia. Palliative Care needs to be a mainstay of our plan. 05/04: No improvement in neuro status. Sputum C&S allows us to narrow abx coverage to levaquin alone. Lungs remain quite congested. Enteral nutrition tolerated. 05/05: No improvement in neuro status. Moves left arm spontaneously. Flaccid right side. Unresponsive. Persistent mild hypoglycemia - will cut Levemir 50%. Abdomen more distended, check KUB. 05/06: CT head with massive left MCA infarction and > 1 cm shift in right handed woman. She opens eyes, does not track. 05/07: Patient open eyes. Attempts to respond. Taiwanese speaking. Tolerating tube feeds. Positive bowel movement. Volume overloaded. 05/08: Tmax 99.4. Potassium being replaced. Ultrasound gallbladder currently pending. Transaminases are trending downward. Gently diurese. 05/09: Alk phos decreasing. Remains with good urine output. Neurological status not improving. 05/10: Fixed neuro deficit unchanged. Profound CVA. 05/11: Appears to track with eyes today. No improvement in motor function. Remains very edematous, diuretics doubled. 05/12: Continued thick secretions. Afebrile, leukocytosis resolved. 05/13: CT head with completed left MCA stroke, persistent edema and 5 mm shift away. Does not last long on SBTs - major decision now is trach/PEG. 05/14: Daughter has decided to proceed with trach and PEG. I have been pessimistic with her about chances for a meaningful recovery. 05/15: Plan for trach today. No change in neuro status. Still ventilator dependent. 05/16: Trach completed. Await PEG and disposition. 05/17: PEG placed 05/16. Start TFs today after nutrition consult. Work to place patient. 05/18: No improvement. Does open eyes, no focus or tracking. Completed large dominant (left) hemisphere CVA in right handed woman with severe deficit. Medicaid pending status, [facility] is following. 05/19: no improvements in neuro exam. ready for LTAC. will d/c moser and rectal tubes. 05/20: no changes or improvements. very difficult placement due to patient not [place] citizen. 05/21: no improvements. resting on vent overnight due to distress. 05/22: no neurologic changes. no improvements. attempted T-piece which failed after 10 minutes. 05/23: no improvements. poor prognosis. poor neuro exam. still failing weaning trials. 05/24: no improvements or changes. still failing t-piece trials. 05/25: No acute changes of improvement overnight. Failed CPAP due to apnea, tried again currently tolerating. Neurological exam unchanged. 05/26: No improvement in neurological function. 05/27: Patient has required Moser catheter because of breakdown of skin on upper thighs and groin. Urine has become infected, will treat. 05/28: Some drainage from around trach (placed 2 weeks ago). Will change out trach tube and inspect neck wound. I&O straight cath q6h order entered 05/17. 05/29: No improvement, remains obtunded. Failed CPAP trials yesterday and again today due to apnea. Omser placed due to persistent urinary retention 05/30: Obtunded, unresponsive. Failed SBTs, remains ventilator dependent. 05/31: Patient continues to fail SBT failed yesterday due to apnea. Neuro exam remains unchanged. 06/01: No acute changes overnight, 06/02: no changes. ekg done overnight for ? EKG changes seen on telemetry which were not visualized on EKG. 06/03: no improvements or changes. had long conversation with daughter yesterday. only facility which would accept patient is in [place] and daughter is refusing to allow patient to go there because it is "too far away." Daughter continues to push for aggressive care despite no improvements, and resistant to Hospice. Patient does not need acute inpatient therapy but lacks funding for appropriate disposition. 06/04: No acute events overnight, failed SBT due to apnea. 06/05: No acute events, continues to fail spontaneous breathing trials. Unable to wean 06/06 Currently tolerating CPAP. Will attempt TP today up to 4 hours. No acute events overnight 06/07: Tolerating trach collar/T-piece. Transfer soon. 06/08: Awaiting transfer. 06/09: Remains ventilator dependent. No improvement in neurological function. 06/10: No improvement. Daughter is not attending preplanned meetings to discuss disposition 06/12: Afebrile. Neurologically stable and unchanged. Noted sodium 135. Adding sodium chloride tablets 1 today. Not on free water.. Tolerating tube feeds at goal 45 cc an hour. 06/13: No improvement in neurological function. Objective Vital Signs Date Time Temp Pulse Resp B/P (MAP) Pulse Ox O2 Delivery O2 Flow Rate FiO2 06/13/17 07:39 35 06/13/17 07:39 98 06/13/17 04:00 100.2 88 14 126/59 (81) 06/12/17 07:00 Mechanical Ventilator Trach Collar 06/09/17 13:50 5.00 Intake and Output 06/13/17 06/13/17 06/14/17 08:00 16:00 00:00 Intake Total 477 ml Output Total 375 ml Balance 102 ml Result Diagram: 06/13/17 0401 06/10/17 0456 Imaging Last Impressions Head CT 05/15/17 0000 Signed Impressions: Service Date/Time: May 19:59 - CONCLUSION: 1. 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 2. No bleed or new/acute infarct. Obdulio Simms MD Chest X-Ray 05/15/17 0000 Signed Impressions: Service Date/Time: May 12:38 - CONCLUSION: 1. A tracheostomy tube in good position with its tip 2 cm above the valerie. 2. Stable scattered pulmonary infiltrates bilaterally. 3. Dobbhoff feeding tube has its tip in the distal stomach. Enzo Farooq MD Abdomen X-Ray 05/10/17 0000 Signed Impressions: Service Date/Time: Wednesday, May 10, 2017 22:08 - CONCLUSION: Tip of Dobbhoff catheter is in the antrum of the stomach. Sage Adler MD Gall Bladder Ultrasound 05/08/17 0000 Signed Impressions: Service Date/Time: May 08:23 - CONCLUSION: Focally unremarkable appearance of the gallbladder Obdulio Chun MD Abdomen/Pelvis CT 05/07/17 0000 Signed Impressions: Service Date/Time: Sunday, May 07, 2017 13:23 - CONCLUSION: 1. Large left pneumothorax. 2. Bilateral lower lobe consolidation and bilateral moderate size pleural effusions. 3. Significant soft tissue thickening of the right lateral chest wall and left gluteus muscle. 4. Mild ascites. The findings were called to Dr. Carney. Deangelo Zamora MD Hip and Pelvis X-Ray 05/05/17 0000 Signed Impressions: Service Date/Time: Friday, May 05, 2017 10:59 - CONCLUSION: Left proximal femur trochanteric/subtrochanteric fracture lucency visualized. Postoperative changes. Choco Mustafa MD Chest CT 04/30/17 0000 Signed Impressions: Service Date/Time: Sunday, April 30, 2017 09:20 - CONCLUSION: 1. Bilateral pulmonary infiltrates more pronounced within the lower lobes with tiny bilateral pleural effusions. Material seen filling the lower lobe bronchi bilaterally either related to purulent material or perhaps mucus plugging. Deangelo Wren Jr., MD Carotid Artery Ultrasound 04/24/17 0000 Signed Impressions: Service Date/Time: April 09:45 - CONCLUSION: 1. No hemodynamically significant carotid artery stenosis. Arnie Middleton MD Hip X-Ray 04/21/17 0000 Signed Impressions: Service Date/Time: Friday, April 21, 2017 11:36 - CONCLUSION: Fluoroscopic images during placement of intramedullary siomara left femur. Benja Ramsey MD Objective Remarks Gen: 76-year-old female, remains unresponsive following massive left MCA dominant hemisphere stroke. HEENT: mucous membranes moist. And pink. Oropharynx without erythema. No thrush. Neck: Trach site clean and dry. #8 Shiley. Supple. Resp: Ventilator dependent. Currently tolerating CPAP but essentially clear Cardiovascular: RRR. No murmurs, no JVD. GI/abdomen: Slightly distended. Nontender. No guarding. BS active. Extremities: Warm, well perfused. Neuro: On no sedation. Unresponsive, no eye opening. Dense right hemiplegia. Withdraws left upper extremity, Withdraws LLE. No change. Pupils 2 mm, react. A/P Assessment and Plan Neuro/Psych: Left MCA CVA - 5.5 mm of [id number] subfalcine herniation. right-sided hemiplegia Acute encephalopathy History CVA Continue Aspirin 325 mg by mouth daily. On admission, patient was not a candidate for thrombolysis per discussion with neurology and radiology. Repeat head CT 05/15 showed slight improvement in the midline shift now 5.5 mm and mass effect Neurosurgery consulted 04/30- Dr. López, recommended conservative management. Neurology Dr. Malave has followed Cardiovascular: Hypertension As needed Antihypertensives to keep systolic blood pressure less than to 160 mmHg (when necessary IV labetalol and IV hydralazine) Lisinopril 10 mg twice a day 05/31/17, with improved BP control Echocardiogram 04/24 - EF 50 to 55%. Mild concentric LVH. Pulmonary: Acute hypoxic respiratory failure - aspiration possible HCAP, now chronic vent dependent respiratory failure Large left pneumothorax status post #10 Swedish chest tube 05/07 Chronic respiratory failure, currently on PRVC 14/450//30 PSV trials as tolerated and transition to T piece as able Ventilator bundle. Ipratropium/albuterol aerosols every 6 hours with albuterol aerosols every 2 hours Chest tube d/c'd 05/12 Daily SBTs. failing for apnea. will continue attempts GI/liver: Elevated transaminases Hypoalbuminemia Moderate to severe protein calorie malnutrition Continue PEG tube feeding with Glucerna 1.5 goal 45 cc an hour Lansoprazole 30 mg daily for GI regimen Previous CT abdomen/pelvis 05/07 - mild ascites. Large left hemothorax. Right greater than left pleural effusion. Endocrine: Diabetes mellitus Detemir 7 units subcutaneous daily. SSI high dose q4h. 4 units sliding scale insulin past 24 hours Holding glimepiride 4 mg by mouth daily /Renal/FEN: Hyponatremia Strict intake output, monitor and replete electrolytes, follow BUN/creatinine. Moser catheter placed for urinary retention on 04/26. Moser removed 05/19 with q6h straight cath. Moser replaced again due to persistent urinary retention. Heme: Chronic Rivaroxaban use Leukocytosis Normocytic anemia Thrombocytosis Follow CBC and coags. On subcutaneous enoxaparin Hemoglobin currently stable. No indications for transfusion of blood proximally at this time ID: [id number] bacteremia Serratia/staph aureus pneumonia C glabrata UTI Citrobacter UTI Pertinent cultures Urine culture 04/26/17 sofie glabrata Blood culture 04/29/17 1 out of 4 bottles staph aureus Sputum culture 04/30/17 staph aureus and Serratia. Blood cultures 2, sputum 1 and urine 05/08 pending -> Serratia, treated. Urine 05/26: Citrobacter Ceftriaxone started 05/26, changed to Cefepime 05/27 based on sensitivity, stopped 06/03/17 MSK: Left Intertroch Hip Fx s/p IMN Vitamin D deficiency Prophylaxis: SCDs. Enoxaparin 40 mg sq daily-cleared by Dr. Malave. GI - lansoprazole Overall impression: Severe dominant hemisphere CVA. No improvement. Poor prognosis. Very difficult wean given age, comorbidities and deconditioning. PEG placed. No change in neuro status. Unable to place and little hope for any meaningful recovery. May be able to move to floor if she tolerates T-piece. Alk phos elevation noted, bili normal. Follow. Charles Pedraza MD Jun 13, 2017 08:48
[2017-06-13] MEDS: INSULIN DETEMIR 100 UNITS/ML VIAL SQ SCH ×2 (09:00→21:00)
[2017-06-13] MEDS: BENEPROTEIN POWDER 1 PACK G-TUBE SCH ×3 (09:00→17:16)
[2017-06-13] MEDS: SODIUM CHLORIDE 0.9% FLUSH 5 ML FLUSH IV FLUSH SCH ×2 (09:00→20:38)
[2017-06-13] MEDS: DOCUSATE SODIUM 100 MG/10 ML UDC PO SCH ×2 (09:00→21:00)
[2017-06-13 09:07] LABS: ALBUMIN 2.3 GM/DL (3.4-5.0); ALKALINE PHOSPHATASE 935 U/L (45-117); ALT (GPT) 44 U/L (10-53); AST (GOT) 39 U/L (15-37); BLOOD UREA NITROGEN 38 MG/DL (7-18); GLOMERULAR FILTRATION RATE 156 ML/MIN (>89); GLUCOSE,RANDOM 224 MG/DL (74-106); MAGNESIUM 2.2 MG/DL (1.5-2.5); PHOSPHORUS 2.8 MG/DL (2.5-4.9); SODIUM (NA) 137 MEQ/L (136-145); TOTAL BILIRUBIN ADULT 0.2 MG/DL (0.2-1.0); TOTAL PROTEIN 6.7 GM/DL (6.4-8.2)
[2017-06-13 09:08] LABS: BICARBONATE 25.4 MEQ/L (21.0-32.0); CHLORIDE 102 MEQ/L (98-107)
[2017-06-13] MEDS: ENOXAPARIN SODIUM 40 MG/0.4 ML SYRINGE SQ SCH (09:58)
[2017-06-13] MEDS: LANSOPRAZOLE SOLUTAB 30 MG TAB NG SCH (09:58)
[2017-06-13] MEDS: CHOLECALCIFEROL (VIT D3) 5000 UNIT CAP PO SCH (09:59)
[2017-06-13] MEDS: LISINOPRIL 10 MG TAB PO SCH ×2 (09:59→20:38)
[2017-06-13] MEDS: CALCIUM/VITAMIN D 250 MG/125 U TAB PO SCH ×3 (09:59→17:16)
[2017-06-13] MEDS: FUROSEMIDE 40 MG/5 ML UNIT DOSE CUP NG SCH (09:59)
[2017-06-13] MEDS: ASPIRIN 325 MG TAB DOBHOFF SCH (09:59)
--- NOTE | 2017-06-13 16:31 | PD.WCN.NOT ---
Wound Consult Description: Patient seen for follow up of DTI opening to full thickness skin loss to coccyx area Communicated with: GREGORY Jackman Recommendation: 1. Please cleanse coccyx gently and apply Calcium Alginate to open wound bed only and secure with bordered gauze every 3 days and PRN for soiling. 2. Continue to turn patient every 2 hours or PRN for comfort. Please use one ultrasorb for moisture. Please use flat sheet for repositioning. Additional Information: Patient seen on for follow up of wound to coccyx. Patient was positioned to her right side for assessment with assistance form GREGORY Jackman. Barrier cream noted to sigrid areas for moisture. Wound presents as a DTI with center opening up to full thickness skin loss with ~30% white tissue and ~70% red non granulating tissue measuring 1.3cm x 2.4cm x 0.7cm with macerated periwound indicating moisture and pressure etiology. Recommend to cleanse wound every 3 days and apply Maxorb II to wound bed and secure with bordered gauze dressing. *If dressing becomes soiled please leave Maxorb in place and replace bordered gauze dressing only* Snehal Olivier [facility] Jun 13, 2017 16:31
[2017-06-14] VITALS (18 sets, daily range): BP systolic 123–178; BP diastolic 58–114; PULSE 66–102; RESP 14–25; TEMP 98.2–99.2; O2SAT 96–100
[2017-06-14] MEDS: RESP: ALBUTEROL 2.5 MG/IPRATROPIUM 0.5 MG NEB (SCH) NEB ×4 (04:08→21:24)
[2017-06-14] MEDS: INSULIN ASPART SUPPLEMENTAL SCALE SQ SCH ×4 (05:46→23:25)
[2017-06-14] MEDS: ARTIFICIAL TEARS OPTH SOLN 15 ML BTL EACH EYE SCH ×3 (05:47→22:00)
[2017-06-14] MEDS: DOCUSATE SODIUM 100 MG/10 ML UDC PO SCH ×2 (09:00→20:13)
[2017-06-14] MEDS: CALCIUM/VITAMIN D 250 MG/125 U TAB PO SCH ×3 (09:39→17:21)
[2017-06-14] MEDS: ENOXAPARIN SODIUM 40 MG/0.4 ML SYRINGE SQ SCH (09:39)
[2017-06-14] MEDS: LISINOPRIL 10 MG TAB PO SCH ×2 (09:39→20:14)
[2017-06-14] MEDS: CHOLECALCIFEROL (VIT D3) 5000 UNIT CAP PO SCH (09:40)
[2017-06-14] MEDS: LANSOPRAZOLE SOLUTAB 30 MG TAB NG SCH (09:40)
[2017-06-14] MEDS: ASPIRIN 325 MG TAB DOBHOFF SCH (09:40)
[2017-06-14] MEDS: INSULIN DETEMIR 100 UNITS/ML VIAL SQ SCH ×2 (09:40→21:00)
[2017-06-14] MEDS: BENEPROTEIN POWDER 1 PACK G-TUBE SCH ×3 (09:41→17:21)
[2017-06-14] MEDS: FUROSEMIDE 40 MG/5 ML UNIT DOSE CUP NG SCH (09:41)
[2017-06-14] MEDS: SODIUM CHLORIDE 0.9% FLUSH 5 ML FLUSH IV FLUSH SCH ×2 (09:41→20:14)
[2017-06-15] VITALS (18 sets, daily range): BP systolic 136–164; BP diastolic 61–75; PULSE 68–92; RESP 14–26; TEMP 98.3–98.8; O2SAT 94–100
[2017-06-15] MEDS: hydrALAZINE HCL 20 MG/ML VIAL IV PUSH PRN ×2 (00:05→06:44)
[2017-06-15] MEDS: RESP: ALBUTEROL 2.5 MG/IPRATROPIUM 0.5 MG NEB (SCH) NEB ×4 (03:07→21:03)
[2017-06-15] MEDS: ARTIFICIAL TEARS OPTH SOLN 15 ML BTL EACH EYE SCH ×3 (05:21→20:40)
[2017-06-15] MEDS: INSULIN ASPART SUPPLEMENTAL SCALE SQ SCH ×4 (05:21→23:35)
--- NOTE | 2017-06-15 07:25 | HHI.CCPN ---
Subjective Remarks/Hospital Course 04/24: 76-year-old female with a medical history significant for prior stroke, diabetes mellitus who was admitted with DKA and a hip fracture for which she underwent ORIF on 04/21. Patient developed altered mental status and was last noted to be okay around 5:30 AM. Subsequently there was a change in her mental status and she was noted to not be moving her right side for which stroke alert was called. Head CT showed large left MCA territory ischemic infarct with edema. Patient was transferred to the ICU by family medicine service in the critical care consult was requested. I evaluated the patient following arrival to the ICU. At that time she was laying in bed with her eyes open however not following commands and had a dense right hemiplegia. Patient was also evaluated by Dr. Malave from neurology. I further discussed current event with patient's daughter following her arrival to the ICU. Per the daughter patient has been living with her since her stroke in 2014 and does ambulate however has been having problems with memory and incontinence as well as gait difficulties. She does not feel patient would want intubation or tracheostomy or PEG tube. 04/25: Patient remains encephalopathic, awake though not following commands consistently. Dense right hemiplegia persists. Appears to be awake enough to protect airway currently. Patient's daughter rescinded DNR and made a full code last evening. 04/26: Remains encephalopathic, not following commands. On Dobbhoff for tube feeds at 30 cc per hour. Had urinary retention and drained 2 L of urine after placing Moser catheter today. CT head done this morning with large left MCA territory infarct with left to right midline shift and significant cerebral edema. Hyperglycemia noted. Patient given mannitol earlier for increasing cerebral edema. 04/27: Remains encephalopathic, not following commands. On Dobbhoff tube feeds at 30 cc per hour. When into A. fib with RVR last night which responded with Lopressor 5 mg IV 1 dose. 04/28: Remains encephalopathic, arousable, not following commands. Moves left upper extremity spontaneously. Tolerating Dobbhoff tube feeds. Remains on nasal cannula. 04/29: Encephalopathic, eyes be arousable, moves left upper extremity spontaneously and occasionally opens eyes. Dense right hemiplegia and aphasia persists. On nasal cannula. Dobbhoff tube feeds being advanced. Patient was transfused 1 unit PRBCs yesterday. Urine culture with yeast from yesterday for which fluconazole being started. Had brief run of A. fib with RVR which improved with Lopressor IV, currently in sinus rhythm. 04/30: Worsening hypoxemic respiratory failure, currently on partial nonrebreather. Remains lethargic. WBC count increased from 14.6 today 20.7. Chest x-ray shows bilateral worsening infiltrates and small pleural effusions. Sodium 154, weight up by 8 KG. Albumin 1 mg Bumex 1. Also one dose of albumin. Remains in sinus tachycardia. Tmax 101.3 05/01: Patient was intubated yesterday for lack of airway protection, and severe hypoxemic respiratory failure from aspiration pneumonia involving multiple lobes. Patient is on the vent lethargic, no spontaneous eye opening. Chest x- ray remains unchanged. Remains intermittently febrile Tmax 101.3. WBC count improving 05/02: Remains critically ill with no improvement in mental status. Spiking fever of 101.7. Blood culture and sputum culture with staph aureus sputum also growing GNR, WBC count 22,000 now indicating worsening sepsis. Daughter still requesting aggressive care. Palliative care is following 05/03: S/P large area dominant hemisphere CVA. No neurological improvement. Now with pneumonia (infiltrate, fever, leukocytosis) and appropriate abx coverage. She will have a hard time surviving the hip fx, CVA, and pneumonia. Palliative Care needs to be a mainstay of our plan. 05/04: No improvement in neuro status. Sputum C&S allows us to narrow abx coverage to levaquin alone. Lungs remain quite congested. Enteral nutrition tolerated. 05/05: No improvement in neuro status. Moves left arm spontaneously. Flaccid right side. Unresponsive. Persistent mild hypoglycemia - will cut Levemir 50%. Abdomen more distended, check KUB. 05/06: CT head with massive left MCA infarction and > 1 cm shift in right handed woman. She opens eyes, does not track. 05/07: Patient open eyes. Attempts to respond. Mexican speaking. Tolerating tube feeds. Positive bowel movement. Volume overloaded. 05/08: Tmax 99.4. Potassium being replaced. Ultrasound gallbladder currently pending. Transaminases are trending downward. Gently diurese. 05/09: Alk phos decreasing. Remains with good urine output. Neurological status not improving. 05/10: Fixed neuro deficit unchanged. Profound CVA. 05/11: Appears to track with eyes today. No improvement in motor function. Remains very edematous, diuretics doubled. 05/12: Continued thick secretions. Afebrile, leukocytosis resolved. 05/13: CT head with completed left MCA stroke, persistent edema and 5 mm shift away. Does not last long on SBTs - major decision now is trach/PEG. 05/14: Daughter has decided to proceed with trach and PEG. I have been pessimistic with her about chances for a meaningful recovery. 05/15: Plan for trach today. No change in neuro status. Still ventilator dependent. 05/16: Trach completed. Await PEG and disposition. 05/17: PEG placed 05/16. Start TFs today after nutrition consult. Work to place patient. 05/18: No improvement. Does open eyes, no focus or tracking. Completed large dominant (left) hemisphere CVA in right handed woman with severe deficit. Medicaid pending status, [facility] is following. 05/19: no improvements in neuro exam. ready for LTAC. will d/c moser and rectal tubes. 05/20: no changes or improvements. very difficult placement due to patient not [place] citizen. 05/21: no improvements. resting on vent overnight due to distress. 05/22: no neurologic changes. no improvements. attempted T-piece which failed after 10 minutes. 05/23: no improvements. poor prognosis. poor neuro exam. still failing weaning trials. 05/24: no improvements or changes. still failing t-piece trials. 05/25: No acute changes of improvement overnight. Failed CPAP due to apnea, tried again currently tolerating. Neurological exam unchanged. 05/26: No improvement in neurological function. 05/27: Patient has required Moser catheter because of breakdown of skin on upper thighs and groin. Urine has become infected, will treat. 05/28: Some drainage from around trach (placed 2 weeks ago). Will change out trach tube and inspect neck wound. I&O straight cath q6h order entered 05/17. 05/29: No improvement, remains obtunded. Failed CPAP trials yesterday and again today due to apnea. Moser placed due to persistent urinary retention 05/30: Obtunded, unresponsive. Failed SBTs, remains ventilator dependent. 05/31: Patient continues to fail SBT failed yesterday due to apnea. Neuro exam remains unchanged. 06/01: No acute changes overnight, 06/02: no changes. ekg done overnight for ? EKG changes seen on telemetry which were not visualized on EKG. 06/03: no improvements or changes. had long conversation with daughter yesterday. only facility which would accept patient is in [place] and daughter is refusing to allow patient to go there because it is "too far away." Daughter continues to push for aggressive care despite no improvements, and resistant to Hospice. Patient does not need acute inpatient therapy but lacks funding for appropriate disposition. 06/04: No acute events overnight, failed SBT due to apnea. 06/05: No acute events, continues to fail spontaneous breathing trials. Unable to wean 06/06 Currently tolerating CPAP. Will attempt TP today up to 4 hours. No acute events overnight 06/07: Tolerating trach collar/T-piece. Transfer soon. 06/08: Awaiting transfer. 06/09: Remains ventilator dependent. No improvement in neurological function. 06/10: No improvement. Daughter is not attending preplanned meetings to discuss disposition 06/12: Afebrile. Neurologically stable and unchanged. Noted sodium 135. Adding sodium chloride tablets 1 today. Not on free water.. Tolerating tube feeds at goal 45 cc an hour. 06/13: No improvement in neurological function. 06/14: No improvement. Fluid balance correct. Gas exchange acceptable. 06/15: No improvement. Obtunded and unresponsive. Objective Vital Signs Date Time Temp Pulse Resp B/P (MAP) Pulse Ox O2 Delivery O2 Flow Rate FiO2 06/15/17 06:00 78 06/15/17 04:29 99 35 06/15/17 04:00 98.5 14 151/67 (95) 06/13/17 16:00 T-piece 7.00 Intake and Output 06/15/17 06/15/17 06/16/17 08:00 16:00 00:00 Intake Total 697 ml Output Total 525 ml Balance 172 ml Result Diagram: 06/13/17 0401 06/13/17 040 Imaging Last Impressions Head CT 05/15/17 0000 Signed Impressions: Service Date/Time: May 19:59 - CONCLUSION: 1. 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 2. No bleed or new/acute infarct. Obdulio Simms MD Chest X-Ray 05/15/17 0000 Signed Impressions: Service Date/Time: May 12:38 - CONCLUSION: 1. A tracheostomy tube in good position with its tip 2 cm above the valerie. 2. Stable scattered pulmonary infiltrates bilaterally. 3. Dobbhoff feeding tube has its tip in the distal stomach. Enzo Farooq MD Abdomen X-Ray 05/10/17 0000 Signed Impressions: Service Date/Time: Wednesday, May 10, 2017 22:08 - CONCLUSION: Tip of Dobbhoff catheter is in the antrum of the stomach. Sage Adler MD Gall Bladder Ultrasound 05/08/17 0000 Signed Impressions: Service Date/Time: May 08:23 - CONCLUSION: Focally unremarkable appearance of the gallbladder Obdulio Chun MD Abdomen/Pelvis CT 05/07/17 0000 Signed Impressions: Service Date/Time: Sunday, May 07, 2017 13:23 - CONCLUSION: 1. Large left pneumothorax. 2. Bilateral lower lobe consolidation and bilateral moderate size pleural effusions. 3. Significant soft tissue thickening of the right lateral chest wall and left gluteus muscle. 4. Mild ascites. The findings were called to Dr. Carney. Deangelo Zamora MD Hip and Pelvis X-Ray 05/05/17 0000 Signed Impressions: Service Date/Time: Friday, May 05, 2017 10:59 - CONCLUSION: Left proximal femur trochanteric/subtrochanteric fracture lucency visualized. Postoperative changes. Choco Mustafa MD Chest CT 04/30/17 0000 Signed Impressions: Service Date/Time: Sunday, April 30, 2017 09:20 - CONCLUSION: 1. Bilateral pulmonary infiltrates more pronounced within the lower lobes with tiny bilateral pleural effusions. Material seen filling the lower lobe bronchi bilaterally either related to purulent material or perhaps mucus plugging. Deangelo Wren Jr., MD Carotid Artery Ultrasound 04/24/17 0000 Signed Impressions: Service Date/Time: April 09:45 - CONCLUSION: 1. No hemodynamically significant carotid artery stenosis. Arnie Middleton MD Hip X-Ray 04/21/17 0000 Signed Impressions: Service Date/Time: Friday, April 21, 2017 11:36 - CONCLUSION: Fluoroscopic images during placement of intramedullary siomara left femur. Benja Ramsey MD Objective Remarks Gen: 76-year-old female, remains unresponsive following massive left MCA dominant hemisphere stroke. HEENT: mucous membranes moist. And pink. Oropharynx without erythema. No thrush. Neck: Trach site clean and dry. #8 Shiley. Supple. Resp: Ventilator dependent. Currently tolerating CPAP, lungs clear Cardiovascular: RRR. No murmurs, no JVD. GI/abdomen: Slightly distended. Nontender. No guarding. BS active. Extremities: Warm, well perfused. Neuro: On no sedation. Unresponsive, no eye opening. Dense right hemiplegia. Withdraws left upper extremity, Withdraws LLE. No change. Pupils 2 mm, react. A/P Assessment and Plan Neuro/Psych: Left MCA CVA - 5.5 mm of [id number] subfalcine herniation. right-sided hemiplegia Acute encephalopathy History CVA Continue Aspirin 325 mg by mouth daily. On admission, patient was not a candidate for thrombolysis per discussion with neurology and radiology. Repeat head CT 05/15 showed slight improvement in the midline shift now 5.5 mm and mass effect Neurosurgery consulted 04/30- Dr. López, recommended conservative management. Neurology Dr. Malave has followed Cardiovascular: Hypertension As needed Antihypertensives to keep systolic blood pressure less than to 160 mmHg (when necessary IV labetalol and IV hydralazine) Lisinopril 10 mg twice a day 05/31/17, with improved BP control Echocardiogram 04/24 - EF 50 to 55%. Mild concentric LVH. Pulmonary: Acute hypoxic respiratory failure - aspiration possible HCAP, now chronic vent dependent respiratory failure Large left pneumothorax status post #10 Latvian chest tube 05/07 Chronic respiratory failure, currently on PRVC 14/450/1//30 PSV trials as tolerated and transition to T piece as able Ventilator bundle. Ipratropium/albuterol aerosols every 6 hours with albuterol aerosols every 2 hours Chest tube d/c'd 05/12 Daily SBTs. failing for apnea. will continue attempts GI/liver: Elevated transaminases Hypoalbuminemia Moderate to severe protein calorie malnutrition Continue PEG tube feeding with Glucerna 1.5 goal 45 cc an hour Lansoprazole 30 mg daily for GI regimen Previous CT abdomen/pelvis 05/07 - mild ascites. Large left hemothorax. Right greater than left pleural effusion. Endocrine: Diabetes mellitus Detemir 7 units subcutaneous daily. SSI high dose q4h. 4 units sliding scale insulin past 24 hours Holding glimepiride 4 mg by mouth daily /Renal/FEN: Hyponatremia Strict intake output, monitor and replete electrolytes, follow BUN/creatinine. Moser catheter placed for urinary retention on 04/26. Moser removed 05/19 with q6h straight cath. Moser replaced again due to persistent urinary retention. Heme: Chronic Rivaroxaban use Leukocytosis Normocytic anemia Thrombocytosis Follow CBC and coags. On subcutaneous enoxaparin Hemoglobin currently stable. No indications for transfusion of blood proximally at this time ID: MSSA bacteremia Serratia/staph aureus pneumonia C glabrata UTI Citrobacter UTI Pertinent cultures Urine culture 04/26/17 sofie glabrata Blood culture 04/29/17 1 out of 4 bottles staph aureus Sputum culture 04/30/17 staph aureus and Serratia. Blood cultures 2, sputum 1 and urine 05/08 pending -> Serratia, treated. Urine 05/26: Citrobacter Ceftriaxone started 05/26, changed to Cefepime 05/27 based on sensitivity, stopped 06/03/17 MSK: Left Intertroch Hip Fx s/p IMN Vitamin D deficiency Prophylaxis: SCDs. Enoxaparin 40 mg sq daily-cleared by Dr. Malave. GI - lansoprazole Overall impression: Severe dominant hemisphere CVA. No improvement. Poor prognosis. Very difficult wean given age, comorbidities and deconditioning. PEG placed. No change in neuro status. Unable to place and little hope for any meaningful recovery. May be able to move to floor if she tolerates T-piece. Alk phos elevation noted, bili normal. Follow. Charles Pedraza MD Jun 15, 2017 07:25
[2017-06-15] MEDS: CHOLECALCIFEROL (VIT D3) 5000 UNIT CAP PO SCH (08:19)
[2017-06-15] MEDS: ASPIRIN 325 MG TAB DOBHOFF SCH (08:20)
[2017-06-15] MEDS: LISINOPRIL 10 MG TAB PO SCH ×2 (08:20→20:39)
[2017-06-15] MEDS: CALCIUM/VITAMIN D 250 MG/125 U TAB PO SCH ×3 (08:20→18:06)
[2017-06-15] MEDS: LANSOPRAZOLE SOLUTAB 30 MG TAB NG SCH (08:20)
[2017-06-15] MEDS: ENOXAPARIN SODIUM 40 MG/0.4 ML SYRINGE SQ SCH (08:20)
[2017-06-15] MEDS: FUROSEMIDE 40 MG/5 ML UNIT DOSE CUP NG SCH (08:21)
[2017-06-15] MEDS: INSULIN DETEMIR 100 UNITS/ML VIAL SQ SCH ×2 (08:21→20:39)
[2017-06-15] MEDS: DOCUSATE SODIUM 100 MG/10 ML UDC PO SCH ×2 (08:21→20:39)
[2017-06-15] MEDS: BENEPROTEIN POWDER 1 PACK G-TUBE SCH ×3 (08:21→18:00)
[2017-06-15] MEDS: SODIUM CHLORIDE 0.9% FLUSH 5 ML FLUSH IV FLUSH SCH ×2 (08:21→20:39)
[2017-06-16] VITALS (17 sets, daily range): BP systolic 147–163; BP diastolic 65–74; PULSE 72–92; RESP 14–24; TEMP 98.3–98.8; O2SAT 94–100
[2017-06-16] MEDS: ERYTHROMYCIN EC 250 MG TABEC PO SCH ×4 (01:40→21:32)
[2017-06-16] MEDS ORDERED: METHYLNALTREXONE BROMIDE 12 MG/0.6 ML VIAL SQ ONE (02:00)
[2017-06-16] MEDS ORDERED: ERYTHROMYCIN ETHYLSUCCINATE 400 MG TAB PO SCH (02:00)
[2017-06-16] MEDS: RESP: ALBUTEROL 2.5 MG/IPRATROPIUM 0.5 MG NEB (SCH) NEB ×4 (03:46→21:22)
[2017-06-16] MEDS: ARTIFICIAL TEARS OPTH SOLN 15 ML BTL EACH EYE SCH ×3 (05:17→21:32)
[2017-06-16] MEDS: INSULIN ASPART SUPPLEMENTAL SCALE SQ SCH ×3 (05:18→17:33)
--- NOTE | 2017-06-16 05:47 | RADRPT ---
EXAM DATE/TIME: 06/16/2017 04:48 [facility] COMPARISON: ABDOMEN KUB ONLY, May 10, 2017, 22:08. INDICATIONS : Ileus. MEDICAL HISTORY : Hypertension. Diabetes mellitus type I. Cerebrovascular disease. SURGICAL HISTORY : None. ENCOUNTER: Subsequent ACUITY: 1 month PAIN SCORE: 0/10 LOCATION: Bilateral abdomen FINDINGS: Examination of the abdomen demonstrates gaseous distention of the small bowel with air fluid levels m ost consistent with ileus .There are no findings of small bowel obstruction. No free air is identifie d. No organomegaly is evident. A gastrostomy tube is in place overlying the region of the stomach. CONCLUSION: 1. Continued small bowel ileus. There has been no significant change when compared to the prior exam. Toy Duran MD on June 16, 2017 at 5:45 Board Certified Radiologist. This report was verified electronically.
[2017-06-16] MEDS: SODIUM CHLORIDE 0.9% FLUSH 5 ML FLUSH IV FLUSH SCH ×2 (09:00→21:00)
[2017-06-16] MEDS: INSULIN DETEMIR 100 UNITS/ML VIAL SQ SCH ×2 (09:00→21:00)
[2017-06-16] MEDS: BENEPROTEIN POWDER 1 PACK G-TUBE SCH ×3 (09:00→17:32)
[2017-06-16] MEDS: LANSOPRAZOLE SOLUTAB 30 MG TAB NG SCH (09:00)
[2017-06-16] MEDS: DOCUSATE SODIUM 100 MG/10 ML UDC PO SCH ×2 (10:09→21:00)
[2017-06-16] MEDS: LISINOPRIL 10 MG TAB PO SCH ×2 (10:09→21:32)
[2017-06-16] MEDS: ENOXAPARIN SODIUM 40 MG/0.4 ML SYRINGE SQ SCH (10:10)
[2017-06-16] MEDS: FUROSEMIDE 40 MG/5 ML UNIT DOSE CUP NG SCH (10:10)
[2017-06-16] MEDS: CALCIUM/VITAMIN D 250 MG/125 U TAB PO SCH ×3 (10:10→17:32)
[2017-06-16] MEDS: CHOLECALCIFEROL (VIT D3) 5000 UNIT CAP PO SCH (10:10)
[2017-06-16] MEDS: ASPIRIN 325 MG TAB DOBHOFF SCH (10:10)
[2017-06-17] VITALS (20 sets, daily range): BP systolic 118–190; BP diastolic 56–88; PULSE 68–92; RESP 14–24; TEMP 98.3–99.5; O2SAT 96–100
[2017-06-17] MEDS: RESP: ALBUTEROL 2.5 MG/IPRATROPIUM 0.5 MG NEB (SCH) NEB ×4 (04:42→22:03)
[2017-06-17] MEDS: INSULIN ASPART SUPPLEMENTAL SCALE SQ SCH ×4 (06:00→17:51)
[2017-06-17] MEDS: ERYTHROMYCIN EC 250 MG TABEC PO SCH ×3 (06:00→21:01)
[2017-06-17] MEDS: ARTIFICIAL TEARS OPTH SOLN 15 ML BTL EACH EYE SCH ×3 (06:04→21:01)
--- NOTE | 2017-06-17 07:23 | HHI.CCPN ---
Subjective Remarks/Hospital Course 04/24: 76-year-old female with a medical history significant for prior stroke, diabetes mellitus who was admitted with DKA and a hip fracture for which she underwent ORIF on 04/21. Patient developed altered mental status and was last noted to be okay around 5:30 AM. Subsequently there was a change in her mental status and she was noted to not be moving her right side for which stroke alert was called. Head CT showed large left MCA territory ischemic infarct with edema. Patient was transferred to the ICU by family medicine service in the critical care consult was requested. I evaluated the patient following arrival to the ICU. At that time she was laying in bed with her eyes open however not following commands and had a dense right hemiplegia. Patient was also evaluated by Dr. Malave from neurology. I further discussed current event with patient's daughter following her arrival to the ICU. Per the daughter patient has been living with her since her stroke in 2014 and does ambulate however has been having problems with memory and incontinence as well as gait difficulties. She does not feel patient would want intubation or tracheostomy or PEG tube. 04/25: Patient remains encephalopathic, awake though not following commands consistently. Dense right hemiplegia persists. Appears to be awake enough to protect airway currently. Patient's daughter rescinded DNR and made a full code last evening. 04/26: Remains encephalopathic, not following commands. On Dobbhoff for tube feeds at 30 cc per hour. Had urinary retention and drained 2 L of urine after placing Moser catheter today. CT head done this morning with large left MCA territory infarct with left to right midline shift and significant cerebral edema. Hyperglycemia noted. Patient given mannitol earlier for increasing cerebral edema. 04/27: Remains encephalopathic, not following commands. On Dobbhoff tube feeds at 30 cc per hour. When into A. fib with RVR last night which responded with Lopressor 5 mg IV 1 dose. 04/28: Remains encephalopathic, arousable, not following commands. Moves left upper extremity spontaneously. Tolerating Dobbhoff tube feeds. Remains on nasal cannula. 04/29: Encephalopathic, eyes be arousable, moves left upper extremity spontaneously and occasionally opens eyes. Dense right hemiplegia and aphasia persists. On nasal cannula. Dobbhoff tube feeds being advanced. Patient was transfused 1 unit PRBCs yesterday. Urine culture with yeast from yesterday for which fluconazole being started. Had brief run of A. fib with RVR which improved with Lopressor IV, currently in sinus rhythm. 04/30: Worsening hypoxemic respiratory failure, currently on partial nonrebreather. Remains lethargic. WBC count increased from 14.6 today 20.7. Chest x-ray shows bilateral worsening infiltrates and small pleural effusions. Sodium 154, weight up by 8 KG. Albumin 1 mg Bumex 1. Also one dose of albumin. Remains in sinus tachycardia. Tmax 101.3 05/01: Patient was intubated yesterday for lack of airway protection, and severe hypoxemic respiratory failure from aspiration pneumonia involving multiple lobes. Patient is on the vent lethargic, no spontaneous eye opening. Chest x- ray remains unchanged. Remains intermittently febrile Tmax 101.3. WBC count improving 05/02: Remains critically ill with no improvement in mental status. Spiking fever of 101.7. Blood culture and sputum culture with staph aureus sputum also growing GNR, WBC count 22,000 now indicating worsening sepsis. Daughter still requesting aggressive care. Palliative care is following 05/03: S/P large area dominant hemisphere CVA. No neurological improvement. Now with pneumonia (infiltrate, fever, leukocytosis) and appropriate abx coverage. She will have a hard time surviving the hip fx, CVA, and pneumonia. Palliative Care needs to be a mainstay of our plan. 05/04: No improvement in neuro status. Sputum C&S allows us to narrow abx coverage to levaquin alone. Lungs remain quite congested. Enteral nutrition tolerated. 05/05: No improvement in neuro status. Moves left arm spontaneously. Flaccid right side. Unresponsive. Persistent mild hypoglycemia - will cut Levemir 50%. Abdomen more distended, check KUB. 05/06: CT head with massive left MCA infarction and > 1 cm shift in right handed woman. She opens eyes, does not track. 05/07: Patient open eyes. Attempts to respond. Gren[place] speaking. Tolerating tube feeds. Positive bowel movement. Volume overloaded. 05/08: Tmax 99.4. Potassium being replaced. Ultrasound gallbladder currently pending. Transaminases are trending downward. Gently diurese. 05/09: Alk phos decreasing. Remains with good urine output. Neurological status not improving. 05/10: Fixed neuro deficit unchanged. Profound CVA. 05/11: Appears to track with eyes today. No improvement in motor function. Remains very edematous, diuretics doubled. 05/12: Continued thick secretions. Afebrile, leukocytosis resolved. 05/13: CT head with completed left MCA stroke, persistent edema and 5 mm shift away. Does not last long on SBTs - major decision now is trach/PEG. 05/14: Daughter has decided to proceed with trach and PEG. I have been pessimistic with her about chances for a meaningful recovery. 05/15: Plan for trach today. No change in neuro status. Still ventilator dependent. 05/16: Trach completed. Await PEG and disposition. 05/17: PEG placed 05/16. Start TFs today after nutrition consult. Work to place patient. 05/18: No improvement. Does open eyes, no focus or tracking. Completed large dominant (left) hemisphere CVA in right handed woman with severe deficit. Medicaid pending status, [facility] is following. 05/19: no improvements in neuro exam. ready for LTAC. will d/c moser and rectal tubes. 05/20: no changes or improvements. very difficult placement due to patient not [place] citizen. 05/21: no improvements. resting on vent overnight due to distress. 05/22: no neurologic changes. no improvements. attempted T-piece which failed after 10 minutes. 05/23: no improvements. poor prognosis. poor neuro exam. still failing weaning trials. 05/24: no improvements or changes. still failing t-piece trials. 05/25: No acute changes of improvement overnight. Failed CPAP due to apnea, tried again currently tolerating. Neurological exam unchanged. 05/26: No improvement in neurological function. 05/27: Patient has required Moser catheter because of breakdown of skin on upper thighs and groin. Urine has become infected, will treat. 05/28: Some drainage from around trach (placed 2 weeks ago). Will change out trach tube and inspect neck wound. I&O straight cath q6h order entered 05/17. 05/29: No improvement, remains obtunded. Failed CPAP trials yesterday and again today due to apnea. Moser placed due to persistent urinary retention 05/30: Obtunded, unresponsive. Failed SBTs, remains ventilator dependent. 05/31: Patient continues to fail SBT failed yesterday due to apnea. Neuro exam remains unchanged. 06/01: No acute changes overnight, 06/02: no changes. ekg done overnight for ? EKG changes seen on telemetry which were not visualized on EKG. 06/03: no improvements or changes. had long conversation with daughter yesterday. only facility which would accept patient is in [place] and daughter is refusing to allow patient to go there because it is "too far away." Daughter continues to push for aggressive care despite no improvements, and resistant to Hospice. Patient does not need acute inpatient therapy but lacks funding for appropriate disposition. 06/04: No acute events overnight, failed SBT due to apnea. 06/05: No acute events, continues to fail spontaneous breathing trials. Unable to wean 06/06 Currently tolerating CPAP. Will attempt TP today up to 4 hours. No acute events overnight 06/07: Tolerating trach collar/T-piece. Transfer soon. 06/08: Awaiting transfer. 06/09: Remains ventilator dependent. No improvement in neurological function. 06/10: No improvement. Daughter is not attending preplanned meetings to discuss disposition 06/12: Afebrile. Neurologically stable and unchanged. Noted sodium 135. Adding sodium chloride tablets 1 today. Not on free water.. Tolerating tube feeds at goal 45 cc an hour. 06/13: No improvement in neurological function. 06/14: No improvement. Fluid balance correct. Gas exchange acceptable. 06/15: No improvement. Obtunded and unresponsive. 06/16: no improvements in mental status. KUB overnight with dilated small bowel loops. given methylnaltrexone and erythromycin. today abdomen is soft and tolerating tube feeds. 06/17: tolerated t-piece x 6 hours yesterday. rested on cpap overnight. no changes in encephalopathy. Objective Vital Signs Date Time Temp Pulse Resp B/P (MAP) Pulse Ox O2 Delivery O2 Flow Rate FiO2 06/17/17 04:42 100 35 06/17/17 04:00 70 06/17/17 04:00 99.5 14 170/73 (105) 06/16/17 08:33 T-piece 06/15/17 11:35 6.00 Result Diagram: 06/13/17 0401 06/13/17 0401 Imaging Last Impressions Head CT 05/15/17 0000 Signed Impressions: Service Date/Time: May 19:59 - CONCLUSION: 1. 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 2. No bleed or new/acute infarct. Obdulio Simms MD Chest X-Ray 05/15/17 0000 Signed Impressions: Service Date/Time: May 12:38 - CONCLUSION: 1. A tracheostomy tube in good position with its tip 2 cm above the valerie. 2. Stable scattered pulmonary infiltrates bilaterally. 3. Dobbhoff feeding tube has its tip in the distal stomach. Enzo Farooq MD Abdomen X-Ray 05/10/17 0000 Signed Impressions: Service Date/Time: Wednesday, May 10, 2017 22:08 - CONCLUSION: Tip of Dobbhoff catheter is in the antrum of the stomach. Sage Adler MD Gall Bladder Ultrasound 05/08/17 0000 Signed Impressions: Service Date/Time: May 08:23 - CONCLUSION: Focally unremarkable appearance of the gallbladder Obdulio Chun MD Abdomen/Pelvis CT 05/07/17 0000 Signed Impressions: Service Date/Time: Sunday, May 07, 2017 13:23 - CONCLUSION: 1. Large left pneumothorax. 2. Bilateral lower lobe consolidation and bilateral moderate size pleural effusions. 3. Significant soft tissue thickening of the right lateral chest wall and left gluteus muscle. 4. Mild ascites. The findings were called to Dr. Carney. Deangelo Zamora MD Hip and Pelvis X-Ray 05/05/17 0000 Signed Impressions: Service Date/Time: Friday, May 05, 2017 10:59 - CONCLUSION: Left proximal femur trochanteric/subtrochanteric fracture lucency visualized. Postoperative changes. Choco Mustafa MD Chest CT 04/30/17 0000 Signed Impressions: Service Date/Time: Sunday, April 30, 2017 09:20 - CONCLUSION: 1. Bilateral pulmonary infiltrates more pronounced within the lower lobes with tiny bilateral pleural effusions. Material seen filling the lower lobe bronchi bilaterally either related to purulent material or perhaps mucus plugging. Deangelo Wren Jr., MD Carotid Artery Ultrasound 04/24/17 0000 Signed Impressions: Service Date/Time: April 09:45 - CONCLUSION: 1. No hemodynamically significant carotid artery stenosis. Arnie Middleton MD Hip X-Ray 04/21/17 0000 Signed Impressions: Service Date/Time: Friday, April 21, 2017 11:36 - CONCLUSION: Fluoroscopic images during placement of intramedullary siomara left femur. Benja Ramsey MD Objective Remarks Gen: 76-year-old female, remains unresponsive following massive left MCA dominant hemisphere stroke. HEENT: mucous membranes moist. And pink. Oropharynx without erythema. No thrush. Neck: Trach site clean and dry. #8 Shiley. Supple. Resp: Ventilator dependent. Currently tolerating CPAP, lungs clear Cardiovascular: RRR. No murmurs, no JVD. GI/abdomen: resolved abdominal distension. Nontender. No guarding. Extremities: Warm, well perfused. Neuro: On no sedation. Unresponsive, no eye opening. Dense right hemiplegia. Withdraws left upper extremity, Withdraws LLE. No change. Pupils 2 mm, react. A/P Assessment and Plan Neuro/Psych: Left MCA CVA - 5.5 mm of [id number] subfalcine herniation. right-sided hemiplegia Acute encephalopathy History CVA Continue Aspirin 325 mg by mouth daily. On admission, patient was not a candidate for thrombolysis per discussion with neurology and radiology. Repeat head CT 05/15 showed slight improvement in the midline shift now 5.5 mm and mass effect Neurosurgery consulted 04/30- Dr. López, recommended conservative management. Neurology Dr. Malave has followed Cardiovascular: Hypertension As needed Antihypertensives to keep systolic blood pressure less than to 160 mmHg (when necessary IV labetalol and IV hydralazine) Lisinopril 10 mg twice a day 05/31/17, with improved BP control Echocardiogram 04/24 - EF 50 to 55%. Mild concentric LVH. Pulmonary: Acute hypoxic respiratory failure - aspiration possible HCAP - resolved. chronic vent dependent respiratory failure Large left pneumothorax status post #10 [place] chest tube 05/07 - resolved. Chronic respiratory failure, currently on PRVC. PSV trials as tolerated and transition to T piece as able. persistent difficulty with weaning. tolerated 6 hours of t-piece yesterday. plan to continue slow weaning as able. Ventilator bundle. Ipratropium/albuterol aerosols every 6 hours with albuterol aerosols every 2 hours Chest tube d/c'd 05/12 GI/liver: Elevated transaminases Hypoalbuminemia Severe protein calorie malnutrition Small bowel ileus- resolving. Continue PEG tube feeding with Glucerna 1.5 goal 45 cc an hour Lansoprazole 30 mg daily for GI regimen Previous CT abdomen/pelvis 05/07 - mild ascites. Large left hemothorax. Right greater than left pleural effusion. symptoms resolved of small bowel ileus- currently tolerating tube feeds, less distended, good BMs. will continue to monitor. s/p methylnaltrexone and erythromycin 06/15. Endocrine: Diabetes mellitus Detemir 7 units subcutaneous daily. SSI high dose q4h. 4 units sliding scale insulin past 24 hours Holding glimepiride 4 mg by mouth daily /Renal/FEN: Hyponatremia Strict intake output, monitor and replete electrolytes, follow BUN/creatinine. Moser catheter placed for urinary retention on 04/26. Moser removed 05/19 with q6h straight cath. Moser replaced again due to persistent urinary retention. Heme: Chronic Rivaroxaban use Leukocytosis Normocytic anemia Thrombocytosis Follow CBC and coags. On subcutaneous enoxaparin Hemoglobin currently stable. No indications for transfusion of blood proximally at this time ID: [id number] bacteremia - resolved. Serratia/staph aureus pneumonia - resolved. C glabrata UTI - resolved. Citrobacter UTI - resolved. Pertinent cultures Urine culture 04/26/17 sofie glabrata Blood culture 04/29/17 1 out of 4 bottles staph aureus Sputum culture 04/30/17 staph aureus and Serratia. Blood cultures 2, sputum 1 and urine 05/08 pending -> Serratia, treated. Urine 05/26: Citrobacter Ceftriaxone started 05/26, changed to Cefepime 05/27 based on sensitivity, stopped 06/03/17 MSK: Left Intertroch Hip Fx s/p IMN Vitamin D deficiency Prophylaxis: SCDs. Enoxaparin 40 mg sq daily-cleared by Dr. Malave. GI - lansoprazole Overall impression: Severe dominant hemisphere CVA. No improvement. Poor prognosis. Very difficult wean given age, comorbidities and deconditioning. PEG placed. No change in neuro status. Unable to place and little hope for any meaningful recovery. May be able to move to floor if she tolerates T-piece, though weaning has been difficult. Anuj Heaton MD Jun 17, 2017 07:23
[2017-06-17] MEDS: SODIUM CHLORIDE 0.9% FLUSH 5 ML FLUSH IV FLUSH SCH ×2 (08:28→21:00)
[2017-06-17] MEDS: LISINOPRIL 10 MG TAB PO SCH ×2 (08:28→21:00)
[2017-06-17] MEDS: ASPIRIN 325 MG TAB DOBHOFF SCH (08:28)
[2017-06-17] MEDS: CALCIUM/VITAMIN D 250 MG/125 U TAB PO SCH ×3 (08:28→17:50)
[2017-06-17] MEDS: ENOXAPARIN SODIUM 40 MG/0.4 ML SYRINGE SQ SCH (08:28)
[2017-06-17] MEDS: LANSOPRAZOLE SOLUTAB 30 MG TAB NG SCH (08:28)
[2017-06-17] MEDS: DOCUSATE SODIUM 100 MG/10 ML UDC PO SCH ×2 (08:29→21:00)
[2017-06-17] MEDS: CHOLECALCIFEROL (VIT D3) 5000 UNIT CAP PO SCH (08:29)
[2017-06-17] MEDS: hydrALAZINE HCL 20 MG/ML VIAL IV PUSH PRN (08:29)
[2017-06-17] MEDS: BENEPROTEIN POWDER 1 PACK G-TUBE SCH ×3 (08:29→17:50)
[2017-06-17] MEDS: FUROSEMIDE 40 MG/5 ML UNIT DOSE CUP NG SCH (08:29)
[2017-06-17] MEDS: INSULIN DETEMIR 100 UNITS/ML VIAL SQ SCH ×2 (08:30→21:01)
[2017-06-18] VITALS (19 sets, daily range): BP systolic 117–182; BP diastolic 58–84; PULSE 74–101; RESP 14–25; TEMP 97.3–99.2; O2SAT 94–100
[2017-06-18] MEDS: INSULIN ASPART SUPPLEMENTAL SCALE SQ SCH ×4 (00:13→17:50)
[2017-06-18] MEDS: RESP: ALBUTEROL 2.5 MG/IPRATROPIUM 0.5 MG NEB (SCH) NEB ×4 (03:27→19:51)
[2017-06-18] MEDS: ARTIFICIAL TEARS OPTH SOLN 15 ML BTL EACH EYE SCH ×3 (04:55→23:00)
[2017-06-18] MEDS: ERYTHROMYCIN EC 250 MG TABEC PO SCH ×2 (04:55→12:27)
[2017-06-18] MEDS: hydrALAZINE HCL 20 MG/ML VIAL IV PUSH PRN ×2 (06:07→12:27)
--- NOTE | 2017-06-18 06:47 | HHI.CCPN ---
Subjective Remarks/Hospital Course 04/24: 76-year-old female with a medical history significant for prior stroke, diabetes mellitus who was admitted with DKA and a hip fracture for which she underwent ORIF on 04/21. Patient developed altered mental status and was last noted to be okay around 5:30 AM. Subsequently there was a change in her mental status and she was noted to not be moving her right side for which stroke alert was called. Head CT showed large left MCA territory ischemic infarct with edema. Patient was transferred to the ICU by family medicine service in the critical care consult was requested. I evaluated the patient following arrival to the ICU. At that time she was laying in bed with her eyes open however not following commands and had a dense right hemiplegia. Patient was also evaluated by Dr. Malave from neurology. I further discussed current event with patient's daughter following her arrival to the ICU. Per the daughter patient has been living with her since her stroke in 2014 and does ambulate however has been having problems with memory and incontinence as well as gait difficulties. She does not feel patient would want intubation or tracheostomy or PEG tube. 04/25: Patient remains encephalopathic, awake though not following commands consistently. Dense right hemiplegia persists. Appears to be awake enough to protect airway currently. Patient's daughter rescinded DNR and made a full code last evening. 04/26: Remains encephalopathic, not following commands. On Dobbhoff for tube feeds at 30 cc per hour. Had urinary retention and drained 2 L of urine after placing Moser catheter today. CT head done this morning with large left MCA territory infarct with left to right midline shift and significant cerebral edema. Hyperglycemia noted. Patient given mannitol earlier for increasing cerebral edema. 04/27: Remains encephalopathic, not following commands. On Dobbhoff tube feeds at 30 cc per hour. When into A. fib with RVR last night which responded with Lopressor 5 mg IV 1 dose. 04/28: Remains encephalopathic, arousable, not following commands. Moves left upper extremity spontaneously. Tolerating Dobbhoff tube feeds. Remains on nasal cannula. 04/29: Encephalopathic, eyes be arousable, moves left upper extremity spontaneously and occasionally opens eyes. Dense right hemiplegia and aphasia persists. On nasal cannula. Dobbhoff tube feeds being advanced. Patient was transfused 1 unit PRBCs yesterday. Urine culture with yeast from yesterday for which fluconazole being started. Had brief run of A. fib with RVR which improved with Lopressor IV, currently in sinus rhythm. 04/30: Worsening hypoxemic respiratory failure, currently on partial nonrebreather. Remains lethargic. WBC count increased from 14.6 today 20.7. Chest x-ray shows bilateral worsening infiltrates and small pleural effusions. Sodium 154, weight up by 8 KG. Albumin 1 mg Bumex 1. Also one dose of albumin. Remains in sinus tachycardia. Tmax 101.3 05/01: Patient was intubated yesterday for lack of airway protection, and severe hypoxemic respiratory failure from aspiration pneumonia involving multiple lobes. Patient is on the vent lethargic, no spontaneous eye opening. Chest x- ray remains unchanged. Remains intermittently febrile Tmax 101.3. WBC count improving 05/02: Remains critically ill with no improvement in mental status. Spiking fever of 101.7. Blood culture and sputum culture with staph aureus sputum also growing GNR, WBC count 22,000 now indicating worsening sepsis. Daughter still requesting aggressive care. Palliative care is following 05/03: S/P large area dominant hemisphere CVA. No neurological improvement. Now with pneumonia (infiltrate, fever, leukocytosis) and appropriate abx coverage. She will have a hard time surviving the hip fx, CVA, and pneumonia. Palliative Care needs to be a mainstay of our plan. 05/04: No improvement in neuro status. Sputum C&S allows us to narrow abx coverage to levaquin alone. Lungs remain quite congested. Enteral nutrition tolerated. 05/05: No improvement in neuro status. Moves left arm spontaneously. Flaccid right side. Unresponsive. Persistent mild hypoglycemia - will cut Levemir 50%. Abdomen more distended, check KUB. 05/06: CT head with massive left MCA infarction and > 1 cm shift in right handed woman. She opens eyes, does not track. 05/07: Patient open eyes. Attempts to respond. Sudanese speaking. Tolerating tube feeds. Positive bowel movement. Volume overloaded. 05/08: Tmax 99.4. Potassium being replaced. Ultrasound gallbladder currently pending. Transaminases are trending downward. Gently diurese. 05/09: Alk phos decreasing. Remains with good urine output. Neurological status not improving. 05/10: Fixed neuro deficit unchanged. Profound CVA. 05/11: Appears to track with eyes today. No improvement in motor function. Remains very edematous, diuretics doubled. 05/12: Continued thick secretions. Afebrile, leukocytosis resolved. 05/13: CT head with completed left MCA stroke, persistent edema and 5 mm shift away. Does not last long on SBTs - major decision now is trach/PEG. 05/14: Daughter has decided to proceed with trach and PEG. I have been pessimistic with her about chances for a meaningful recovery. 05/15: Plan for trach today. No change in neuro status. Still ventilator dependent. 05/16: Trach completed. Await PEG and disposition. 05/17: PEG placed 05/16. Start TFs today after nutrition consult. Work to place patient. 05/18: No improvement. Does open eyes, no focus or tracking. Completed large dominant (left) hemisphere CVA in right handed woman with severe deficit. Medicaid pending status, [facility] is following. 05/19: no improvements in neuro exam. ready for LTAC. will d/c moser and rectal tubes. 05/20: no changes or improvements. very difficult placement due to patient not [place] citizen. 05/21: no improvements. resting on vent overnight due to distress. 05/22: no neurologic changes. no improvements. attempted T-piece which failed after 10 minutes. 05/23: no improvements. poor prognosis. poor neuro exam. still failing weaning trials. 05/24: no improvements or changes. still failing t-piece trials. 05/25: No acute changes of improvement overnight. Failed CPAP due to apnea, tried again currently tolerating. Neurological exam unchanged. 05/26: No improvement in neurological function. 05/27: Patient has required Moser catheter because of breakdown of skin on upper thighs and groin. Urine has become infected, will treat. 05/28: Some drainage from around trach (placed 2 weeks ago). Will change out trach tube and inspect neck wound. I&O straight cath q6h order entered 05/17. 05/29: No improvement, remains obtunded. Failed CPAP trials yesterday and again today due to apnea. Moser placed due to persistent urinary retention 05/30: Obtunded, unresponsive. Failed SBTs, remains ventilator dependent. 05/31: Patient continues to fail SBT failed yesterday due to apnea. Neuro exam remains unchanged. 06/01: No acute changes overnight, 06/02: no changes. ekg done overnight for ? EKG changes seen on telemetry which were not visualized on EKG. 06/03: no improvements or changes. had long conversation with daughter yesterday. only facility which would accept patient is in [place] and daughter is refusing to allow patient to go there because it is "too far away." Daughter continues to push for aggressive care despite no improvements, and resistant to Hospice. Patient does not need acute inpatient therapy but lacks funding for appropriate disposition. 06/04: No acute events overnight, failed SBT due to apnea. 06/05: No acute events, continues to fail spontaneous breathing trials. Unable to wean 06/06 Currently tolerating CPAP. Will attempt TP today up to 4 hours. No acute events overnight 06/07: Tolerating trach collar/T-piece. Transfer soon. 06/08: Awaiting transfer. 06/09: Remains ventilator dependent. No improvement in neurological function. 06/10: No improvement. Daughter is not attending preplanned meetings to discuss disposition 06/12: Afebrile. Neurologically stable and unchanged. Noted sodium 135. Adding sodium chloride tablets 1 today. Not on free water.. Tolerating tube feeds at goal 45 cc an hour. 06/13: No improvement in neurological function. 06/14: No improvement. Fluid balance correct. Gas exchange acceptable. 06/15: No improvement. Obtunded and unresponsive. 06/16: no improvements in mental status. KUB overnight with dilated small bowel loops. given methylnaltrexone and erythromycin. today abdomen is soft and tolerating tube feeds. 06/17: tolerated t-piece x 6 hours yesterday. rested on cpap overnight. no changes in encephalopathy. Subjective 06/18: Currently on ventilator overnight. Multiple bowel movements. Thick yellow secretions noted in ventilator circuit. Opens eyes. Objective Vital Signs Date Time Temp Pulse Resp B/P (MAP) Pulse Ox O2 Delivery O2 Flow Rate FiO2 06/18/17 06:00 77 06/18/17 04:00 35 06/18/17 04:00 99.2 14 123/58 (79) 99 06/17/17 19:49 Ventilator 06/17/17 11:00 6.00 Intake and Output 06/18/17 06/18/17 06/19/17 08:00 16:00 00:00 Intake Total 449 ml Output Total 400 ml Balance 49 ml Other Results Microbiology Date/Time Source Procedure Growth Status 05/08/17 04:44 Blood Peripheral Aerobic Blood Culture - Final NO GROWTH IN 5 DAYS Complete 05/08/17 04:44 Blood Peripheral Anaerobic Blood Culture - Final NO GROWTH IN 5 DAYS Complete 05/29/17 17:15 Stool Stool Stool Occult Blood (JEFFREY) - Final HEMOCCULT NEGATIVE Complete 05/07/17 21:30 Sputum Endotracheal Gram Stain - Final Complete 05/07/17 21:30 Sputum Culture - Final Serratia Marcescens Complete 05/25/17 15:00 Urine Catheterized Urine Urine Culture - Final Citrobacter Freundii Complete Imaging Last Impressions Abdomen X-Ray 06/16/17 0000 Signed Impressions: Service Date/Time: Friday, June 16, 2017 04:48 - CONCLUSION: 1. Continued small bowel ileus. There has been no significant change when compared to the prior exam. Toy Duran MD Chest X-Ray 06/13/17 0600 Signed Impressions: Service Date/Time: Tuesday, June 13, 2017 01:32 - CONCLUSION: 1. Tracheostomy with scattered airspace disease in the lungs similar to prior examination. Jaime Velasquez MD Head CT 05/15/17 0000 Signed Impressions: Service Date/Time: May 19:59 - CONCLUSION: 1. 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 2. No bleed or new/acute infarct. Obdulio Simms MD Gall Bladder Ultrasound 05/08/17 0000 Signed Impressions: Service Date/Time: May 08:23 - CONCLUSION: Focally unremarkable appearance of the gallbladder Obdulio Chun MD Abdomen/Pelvis CT 05/07/17 0000 Signed Impressions: Service Date/Time: Sunday, May 07, 2017 13:23 - CONCLUSION: 1. Large left pneumothorax. 2. Bilateral lower lobe consolidation and bilateral moderate size pleural effusions. 3. Significant soft tissue thickening of the right lateral chest wall and left gluteus muscle. 4. Mild ascites. The findings were called to Dr. Carney. Deangelo Zamora MD Hip and Pelvis X-Ray 05/05/17 0000 Signed Impressions: Service Date/Time: Friday, May 05, 2017 10:59 - CONCLUSION: Left proximal femur trochanteric/subtrochanteric fracture lucency visualized. Postoperative changes. Choco Mustafa MD Chest CT 04/30/17 0000 Signed Impressions: Service Date/Time: Sunday, April 30, 2017 09:20 - CONCLUSION: 1. Bilateral pulmonary infiltrates more pronounced within the lower lobes with tiny bilateral pleural effusions. Material seen filling the lower lobe bronchi bilaterally either related to purulent material or perhaps mucus plugging. Deangelo Wren Jr., MD Carotid Artery Ultrasound 04/24/17 0000 Signed Impressions: Service Date/Time: April 09:45 - CONCLUSION: 1. No hemodynamically significant carotid artery stenosis. Arnie Middleton MD Hip X-Ray 04/21/17 0000 Signed Impressions: Service Date/Time: Friday, April 21, 2017 11:36 - CONCLUSION: Fluoroscopic images during placement of intramedullary siomara left femur. Benja Ramsey MD Objective Remarks Gen: 76-year-old female, resting in bed in no acute distress HEENT: mucous membranes moist. And pink. Oropharynx without erythema. No thrush. Neck: Trach site clean and dry. #8 Shiley. Supple. Resp: Transmitted upper airway sounds clear with suctioning/coughing. No wheezing Cardiovascular: RRR. S1, S2. No S4. No murmurs, no JVD. GI/abdomen: Soft, nontender, somewhat protuberant. PEG tube site is clean dry and intact. Extremities: Warm, well perfused. No rash Neuro: Eyes open with coughing. Dense right hemiplegia. Withdraws left upper extremity, Withdraws LLE. Pupils 2 mm, react bilaterally. A/P Assessment and Plan Neuro/Psych: Left MCA CVA - 5.5 mm of [id number] subfalcine herniation. right-sided hemiplegia Acute encephalopathy History CVA Continue Aspirin 325 mg by mouth daily. On admission, patient was not a candidate for thrombolysis per discussion with neurology and radiology. Repeat head CT 05/15 showed slight improvement in the midline shift now 5.5 mm and mass effect Neurosurgery consulted 04/30- Dr. López, recommended conservative management. Neurology Dr. Malave has followed Cardiovascular: Hypertension As needed Antihypertensives to keep systolic blood pressure less than to 160 mmHg (when necessary IV labetalol and IV hydralazine) Lisinopril 10 mg twice a day 05/31/17, with improved BP control Currently on furosemide 40 mg by PEG daily for gentle diuresis Echocardiogram 04/24 - EF 50 to 55%. Mild concentric LVH. Pulmonary: Acute hypoxic respiratory failure - aspiration possible HCAP - resolved. chronic vent dependent respiratory failure Large left pneumothorax status post #10 Serbian chest tube 05/07 - resolved. Chronic respiratory failure, currently on PRVC. 14/450///35 PSV trials as tolerated and transition to T piece as able. persistent difficulty with weaning. tolerated 6 hours of t-piece yesterday. plan to continue slow weaning as able. Ventilator bundle. Ipratropium/albuterol aerosols every 6 hours with albuterol aerosols every 2 hours Chest tube d/c'd 05/12 GI/liver: Elevated transaminases Hypoalbuminemia Severe protein calorie malnutrition Small bowel ileus- resolving. Hepatitis C antibody positive Continue PEG tube feeding with Glucerna 1.5 goal 45 cc an hour Lansoprazole 30 mg daily for GI regimen Docusate sodium 100 mg twice a day for bowel regimen Previous CT abdomen/pelvis 05/07 - mild ascites. Large left hemothorax. Right greater than left pleural effusion. Abdominal x-ray 06/16- small bowel ileus symptoms resolved of small bowel ileus- currently tolerating tube feeds, less distended, good BMs. will continue to monitor. s/p methylnaltrexone and erythromycin 06/15. Endocrine: Diabetes mellitus Detemir 7 units subcutaneous daily. SSI high dose q4h. 6 units sliding scale insulin past 24 hours Holding glimepiride 4 mg by mouth daily /Renal/FEN: Hyponatremia Strict intake output, monitor and replete electrolytes, follow BUN/creatinine. Moser catheter placed for urinary retention on 04/26. Moser removed 05/19 with q6h straight cath. Moser replaced again due to persistent urinary retention. Follow-up on BMP/magnesium phosphorus in a.m. Heme: Chronic Rivaroxaban use Leukocytosis Normocytic anemia Thrombocytosis Follow CBC and coags. On subcutaneous enoxaparin 40 mg daily subcutaneous Hemoglobin currently stable. No indications for transfusion of blood proximally at this time ID: MSSA bacteremia - resolved. Serratia/staph aureus pneumonia - resolved. C glabrata UTI - resolved. Citrobacter UTI - resolved. Pertinent cultures Urine culture 04/26/17 sofie glabrata Blood culture 04/29/17 1 out of 4 bottles staph aureus Sputum culture 04/30/17 MSSA and Serratia. urine 05/07-> Serratia, treated. Urine 05/25: Citrobacter Ceftriaxone started 05/26, changed to Cefepime 05/27 based on sensitivity, stopped 06/03/17 MSK: Left Intertroch Hip Fx s/p IMN Vitamin D deficiency Continue calcium vitamin D 250/125 one tablet 3x a day and cholecalciferol 5000 units daily. PT/OT evaluate and treat Prophylaxis: SCDs. Enoxaparin 40 mg subcutaneous daily-cleared by Dr. Malave. GI - lansoprazole 30 mg by PEG tube daily Level II follow-up Sal Carney MD Jun 18, 2017 06:47
[2017-06-18] MEDS: DOCUSATE SODIUM 100 MG/10 ML UDC PO SCH ×2 (09:00→21:00)
[2017-06-18] MEDS: CALCIUM/VITAMIN D 250 MG/125 U TAB PO SCH ×3 (11:01→17:45)
[2017-06-18] MEDS: ASPIRIN 325 MG TAB DOBHOFF SCH (11:01)
[2017-06-18] MEDS: CHOLECALCIFEROL (VIT D3) 5000 UNIT CAP PO SCH (11:01)
[2017-06-18] MEDS: LANSOPRAZOLE SOLUTAB 30 MG TAB NG SCH (11:02)
[2017-06-18] MEDS: LISINOPRIL 10 MG TAB PO SCH ×2 (11:02→21:28)
[2017-06-18] MEDS: BENEPROTEIN POWDER 1 PACK G-TUBE SCH ×3 (11:02→17:45)
[2017-06-18] MEDS: FUROSEMIDE 40 MG/5 ML UNIT DOSE CUP NG SCH (11:02)
[2017-06-18] MEDS: INSULIN DETEMIR 100 UNITS/ML VIAL SQ SCH ×2 (11:03→21:26)
[2017-06-18] MEDS: SODIUM CHLORIDE 0.9% FLUSH 5 ML FLUSH IV FLUSH SCH ×2 (11:03→21:00)
[2017-06-18] MEDS: ENOXAPARIN SODIUM 40 MG/0.4 ML SYRINGE SQ SCH (11:17)
[2017-06-19] VITALS (20 sets, daily range): BP systolic 117–149; BP diastolic 58–70; PULSE 66–87; RESP 13–23; TEMP 98.3–98.9; O2SAT 92–99
[2017-06-19] MEDS ORDERED: ERYTHROMYCIN ETHYLSUCCINATE 400 MG/5 ML SUSP 100 ML BOTTLE PO SCH
[2017-06-19] MEDS: INSULIN ASPART SUPPLEMENTAL SCALE SQ SCH ×5 (00:14→23:36)
[2017-06-19] MEDS: RESP: ALBUTEROL 2.5 MG/IPRATROPIUM 0.5 MG NEB (SCH) NEB ×4 (03:50→19:39)
[2017-06-19 05:12] LABS: AUTOMATED NEUTROPHIL # 6.7 TH/MM3 (1.8-7.7); BASOPHIL # 0.1 TH/MM3 (0-0.2); BASOPHIL % 1.3 % (0.0-2.0); EOSINOPHIL # 0.4 TH/MM3 (0-0.4); HEMATOCRIT 29.9 % (35.0-46.0); HEMOGLOBIN 9.9 GM/DL (11.6-15.3); LYMPHOCYTE # 3.1 TH/MM3 (1.0-4.8); MEAN CELL VOLUME 94.7 FL (80.0-100.0); MEAN CORPUSCULAR HEMOGLOBIN 31.2 PG (27.0-34.0); MONO % 5.7 % (0.0-8.0); MONOCYTE # 0.6 TH/MM3 (0-0.9); PLATELET COUNT 325 TH/MM3 (150-450); RED BLOOD COUNT 3.16 MIL/MM3 (4.00-5.30); RED CELL DISTRIBUTION WIDTH 17.4 % (11.6-17.2); WHITE BLOOD COUNT 10.9 TH/MM3 (4.0-11.0)
[2017-06-19 05:36] LABS: ALBUMIN 2.2 GM/DL (3.4-5.0); AST (GOT) 143 U/L (15-37); BICARBONATE 28.6 MEQ/L (21.0-32.0); BLOOD UREA NITROGEN 47 MG/DL (7-18); CALCIUM 8.6 MG/DL (8.5-10.1); CHLORIDE 103 MEQ/L (98-107); CREATININE 0.32 MG/DL (0.50-1.00); GLOMERULAR FILTRATION RATE 202 ML/MIN (>89); GLUCOSE,RANDOM 122 MG/DL (74-106); MAGNESIUM 2.2 MG/DL (1.5-2.5); SODIUM (NA) 138 MEQ/L (136-145)
[2017-06-19 05:51] LABS: ALKALINE PHOSPHATASE 1387 U/L (45-117); ALT (GPT) 163 U/L (10-53); PHOSPHORUS 3.2 MG/DL (2.5-4.9); TOTAL BILIRUBIN ADULT 0.3 MG/DL (0.2-1.0); TOTAL PROTEIN 6.6 GM/DL (6.4-8.2)
[2017-06-19] MEDS: ARTIFICIAL TEARS OPTH SOLN 15 ML BTL EACH EYE SCH ×3 (06:00→23:23)
--- NOTE | 2017-06-19 06:50 | HHI.CCPN ---
Subjective Remarks/Hospital Course 04/24: 76-year-old female with a medical history significant for prior stroke, diabetes mellitus who was admitted with DKA and a hip fracture for which she underwent ORIF on 04/21. Patient developed altered mental status and was last noted to be okay around 5:30 AM. Subsequently there was a change in her mental status and she was noted to not be moving her right side for which stroke alert was called. Head CT showed large left MCA territory ischemic infarct with edema. Patient was transferred to the ICU by family medicine service in the critical care consult was requested. I evaluated the patient following arrival to the ICU. At that time she was laying in bed with her eyes open however not following commands and had a dense right hemiplegia. Patient was also evaluated by Dr. Malave from neurology. I further discussed current event with patient's daughter following her arrival to the ICU. Per the daughter patient has been living with her since her stroke in 2014 and does ambulate however has been having problems with memory and incontinence as well as gait difficulties. She does not feel patient would want intubation or tracheostomy or PEG tube. 04/25: Patient remains encephalopathic, awake though not following commands consistently. Dense right hemiplegia persists. Appears to be awake enough to protect airway currently. Patient's daughter rescinded DNR and made a full code last evening. 04/26: Remains encephalopathic, not following commands. On Dobbhoff for tube feeds at 30 cc per hour. Had urinary retention and drained 2 L of urine after placing Moser catheter today. CT head done this morning with large left MCA territory infarct with left to right midline shift and significant cerebral edema. Hyperglycemia noted. Patient given mannitol earlier for increasing cerebral edema. 04/27: Remains encephalopathic, not following commands. On Dobbhoff tube feeds at 30 cc per hour. When into A. fib with RVR last night which responded with Lopressor 5 mg IV 1 dose. 04/28: Remains encephalopathic, arousable, not following commands. Moves left upper extremity spontaneously. Tolerating Dobbhoff tube feeds. Remains on nasal cannula. 04/29: Encephalopathic, eyes be arousable, moves left upper extremity spontaneously and occasionally opens eyes. Dense right hemiplegia and aphasia persists. On nasal cannula. Dobbhoff tube feeds being advanced. Patient was transfused 1 unit PRBCs yesterday. Urine culture with yeast from yesterday for which fluconazole being started. Had brief run of A. fib with RVR which improved with Lopressor IV, currently in sinus rhythm. 04/30: Worsening hypoxemic respiratory failure, currently on partial nonrebreather. Remains lethargic. WBC count increased from 14.6 today 20.7. Chest x-ray shows bilateral worsening infiltrates and small pleural effusions. Sodium 154, weight up by 8 KG. Albumin 1 mg Bumex 1. Also one dose of albumin. Remains in sinus tachycardia. Tmax 101.3 05/01: Patient was intubated yesterday for lack of airway protection, and severe hypoxemic respiratory failure from aspiration pneumonia involving multiple lobes. Patient is on the vent lethargic, no spontaneous eye opening. Chest x- ray remains unchanged. Remains intermittently febrile Tmax 101.3. WBC count improving 05/02: Remains critically ill with no improvement in mental status. Spiking fever of 101.7. Blood culture and sputum culture with staph aureus sputum also growing GNR, WBC count 22,000 now indicating worsening sepsis. Daughter still requesting aggressive care. Palliative care is following 05/03: S/P large area dominant hemisphere CVA. No neurological improvement. Now with pneumonia (infiltrate, fever, leukocytosis) and appropriate abx coverage. She will have a hard time surviving the hip fx, CVA, and pneumonia. Palliative Care needs to be a mainstay of our plan. 05/04: No improvement in neuro status. Sputum C&S allows us to narrow abx coverage to levaquin alone. Lungs remain quite congested. Enteral nutrition tolerated. 05/05: No improvement in neuro status. Moves left arm spontaneously. Flaccid right side. Unresponsive. Persistent mild hypoglycemia - will cut Levemir 50%. Abdomen more distended, check KUB. 05/06: CT head with massive left MCA infarction and > 1 cm shift in right handed woman. She opens eyes, does not track. 05/07: Patient open eyes. Attempts to respond. American speaking. Tolerating tube feeds. Positive bowel movement. Volume overloaded. 05/08: Tmax 99.4. Potassium being replaced. Ultrasound gallbladder currently pending. Transaminases are trending downward. Gently diurese. 05/09: Alk phos decreasing. Remains with good urine output. Neurological status not improving. 05/10: Fixed neuro deficit unchanged. Profound CVA. 05/11: Appears to track with eyes today. No improvement in motor function. Remains very edematous, diuretics doubled. 05/12: Continued thick secretions. Afebrile, leukocytosis resolved. 05/13: CT head with completed left MCA stroke, persistent edema and 5 mm shift away. Does not last long on SBTs - major decision now is trach/PEG. 05/14: Daughter has decided to proceed with trach and PEG. I have been pessimistic with her about chances for a meaningful recovery. 05/15: Plan for trach today. No change in neuro status. Still ventilator dependent. 05/16: Trach completed. Await PEG and disposition. 05/17: PEG placed 05/16. Start TFs today after nutrition consult. Work to place patient. 05/18: No improvement. Does open eyes, no focus or tracking. Completed large dominant (left) hemisphere CVA in right handed woman with severe deficit. Medicaid pending status, [facility] is following. 05/19: no improvements in neuro exam. ready for LTAC. will d/c moser and rectal tubes. 05/20: no changes or improvements. very difficult placement due to patient not [place] citizen. 05/21: no improvements. resting on vent overnight due to distress. 05/22: no neurologic changes. no improvements. attempted T-piece which failed after 10 minutes. 05/23: no improvements. poor prognosis. poor neuro exam. still failing weaning trials. 05/24: no improvements or changes. still failing t-piece trials. 05/25: No acute changes of improvement overnight. Failed CPAP due to apnea, tried again currently tolerating. Neurological exam unchanged. 05/26: No improvement in neurological function. 05/27: Patient has required Moser catheter because of breakdown of skin on upper thighs and groin. Urine has become infected, will treat. 05/28: Some drainage from around trach (placed 2 weeks ago). Will change out trach tube and inspect neck wound. I&O straight cath q6h order entered 05/17. 05/29: No improvement, remains obtunded. Failed CPAP trials yesterday and again today due to apnea. Moser placed due to persistent urinary retention 05/30: Obtunded, unresponsive. Failed SBTs, remains ventilator dependent. 05/31: Patient continues to fail SBT failed yesterday due to apnea. Neuro exam remains unchanged. 06/01: No acute changes overnight, 06/02: no changes. ekg done overnight for ? EKG changes seen on telemetry which were not visualized on EKG. 06/03: no improvements or changes. had long conversation with daughter yesterday. only facility which would accept patient is in [place] and daughter is refusing to allow patient to go there because it is "too far away." Daughter continues to push for aggressive care despite no improvements, and resistant to Hospice. Patient does not need acute inpatient therapy but lacks funding for appropriate disposition. 06/04: No acute events overnight, failed SBT due to apnea. 06/05: No acute events, continues to fail spontaneous breathing trials. Unable to wean 06/06 Currently tolerating CPAP. Will attempt TP today up to 4 hours. No acute events overnight 06/07: Tolerating trach collar/T-piece. Transfer soon. 06/08: Awaiting transfer. 06/09: Remains ventilator dependent. No improvement in neurological function. 06/10: No improvement. Daughter is not attending preplanned meetings to discuss disposition 06/12: Afebrile. Neurologically stable and unchanged. Noted sodium 135. Adding sodium chloride tablets 1 today. Not on free water.. Tolerating tube feeds at goal 45 cc an hour. 06/13: No improvement in neurological function. 06/14: No improvement. Fluid balance correct. Gas exchange acceptable. 06/15: No improvement. Obtunded and unresponsive. 06/16: no improvements in mental status. KUB overnight with dilated small bowel loops. given methylnaltrexone and erythromycin. today abdomen is soft and tolerating tube feeds. 06/17: tolerated t-piece x 6 hours yesterday. rested on cpap overnight. no changes in encephalopathy. 06/18: Currently on ventilator overnight. Multiple bowel movements. Thick yellow secretions noted in ventilator circuit. Opens eyes. Subjective 06/19: Afebrile. Tolerating stretcher chair yesterday on PSV. Tolerating tube feeding. Neurologically unchanged. Objective Vital Signs Date Time Temp Pulse Resp B/P (MAP) Pulse Ox O2 Delivery O2 Flow Rate FiO2 06/19/17 04:00 35 06/19/17 04:00 84 06/19/17 04:00 98.4 14 130/60 (83) 92 06/18/17 09:40 T-piece 5.00 Intake and Output 06/19/17 06/19/17 06/19/17 07:59 15:59 23:59 Output Total 0 ml Balance 0 ml Result Diagram: 06/19/17 0353 06/19/17 0353 Other Results Microbiology Date/Time Source Procedure Growth Status 05/08/17 04:44 Blood Peripheral Aerobic Blood Culture - Final NO GROWTH IN 5 DAYS Complete 05/08/17 04:44 Blood Peripheral Anaerobic Blood Culture - Final NO GROWTH IN 5 DAYS Complete 05/29/17 17:15 Stool Stool Stool Occult Blood (JEFFREY) - Final HEMOCCULT NEGATIVE Complete 06/18/17 10:00 Sputum Endotracheal Gram Stain - Final Resulted 06/18/17 10:00 Sputum Endotracheal Sputum Culture Pending Resulted 05/25/17 15:00 Urine Catheterized Urine Urine Culture - Final Citrobacter Freundii Complete Imaging Last Impressions Abdomen X-Ray 06/16/17 0000 Signed Impressions: Service Date/Time: Friday, June 16, 2017 04:48 - CONCLUSION: 1. Continued small bowel ileus. There has been no significant change when compared to the prior exam. Toy Duran MD Chest X-Ray 06/13/17 0600 Signed Impressions: Service Date/Time: Tuesday, June 13, 2017 01:32 - CONCLUSION: 1. Tracheostomy with scattered airspace disease in the lungs similar to prior examination. Jaime Velasquez MD Head CT 05/15/17 0000 Signed Impressions: Service Date/Time: May 19:59 - CONCLUSION: 1. 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 2. No bleed or new/acute infarct. Obdulio Simms MD Gall Bladder Ultrasound 05/08/17 0000 Signed Impressions: Service Date/Time: May 08:23 - CONCLUSION: Focally unremarkable appearance of the gallbladder Obdulio Chun MD Abdomen/Pelvis CT 05/07/17 0000 Signed Impressions: Service Date/Time: Sunday, May 07, 2017 13:23 - CONCLUSION: 1. Large left pneumothorax. 2. Bilateral lower lobe consolidation and bilateral moderate size pleural effusions. 3. Significant soft tissue thickening of the right lateral chest wall and left gluteus muscle. 4. Mild ascites. The findings were called to Dr. Carney. Deangelo Zamora MD Hip and Pelvis X-Ray 05/05/17 0000 Signed Impressions: Service Date/Time: Friday, May 05, 2017 10:59 - CONCLUSION: Left proximal femur trochanteric/subtrochanteric fracture lucency visualized. Postoperative changes. Choco Mustafa MD Chest CT 04/30/17 0000 Signed Impressions: Service Date/Time: Sunday, April 30, 2017 09:20 - CONCLUSION: 1. Bilateral pulmonary infiltrates more pronounced within the lower lobes with tiny bilateral pleural effusions. Material seen filling the lower lobe bronchi bilaterally either related to purulent material or perhaps mucus plugging. Deangelo Wren Jr., MD Carotid Artery Ultrasound 04/24/17 0000 Signed Impressions: Service Date/Time: April 09:45 - CONCLUSION: 1. No hemodynamically significant carotid artery stenosis. Arnie Middleton MD Hip X-Ray 04/21/17 0000 Signed Impressions: Service Date/Time: Friday, April 21, 2017 11:36 - CONCLUSION: Fluoroscopic images during placement of intramedullary siomara left femur. Benja Ramsey MD Objective Remarks Gen: 76-year-old female, resting in bed in no acute distress HEENT: mucous membranes moist. And pink. Oropharynx without erythema. No thrush. Neck: Trach site clean and dry. #8 Shiley. Supple. Resp: Transmitted upper airway sounds clear with suctioning/coughing. No wheezing Cardiovascular: RRR. S1, S2. No S4. No murmurs, no JVD. GI/abdomen: Soft, nontender, somewhat protuberant. PEG tube site is clean dry and intact. Extremities: Warm, well perfused. No rash Neuro: Eyes open with coughing. Dense right hemiplegia. Withdraws left upper extremity, Withdraws LLE. Pupils 2 mm, react bilaterally. A/P Assessment and Plan Neuro/Psych: Left MCA CVA - 5.5 mm of [id number] subfalcine herniation. right-sided hemiplegia Acute encephalopathy History CVA Continue Aspirin 325 mg by mouth daily. On admission, patient was not a candidate for thrombolysis per discussion with neurology and radiology. Repeat head CT 05/15 showed slight improvement in the midline shift now 5.5 mm and mass effect Neurosurgery consulted 04/30- Dr. López, recommended conservative management. Neurology Dr. Malave has followed Cardiovascular: Hypertension As needed Antihypertensives to keep systolic blood pressure less than to 160 mmHg (when necessary IV labetalol and IV hydralazine) Lisinopril 10 mg twice a day 05/31/17, with improved BP control Currently on furosemide 40 mg by PEG daily for gentle diuresis Echocardiogram 04/24 - EF 50 to 55%. Mild concentric LVH. Pulmonary: Acute hypoxic respiratory failure - aspiration possible HCAP - resolved. chronic vent dependent respiratory failure Large left pneumothorax status post #10 Romansh chest tube 05/07 - resolved. Chronic respiratory failure, currently on PRVC. 14450/09/05/34 PSV trials as tolerated and transition to T piece as able. persistent difficulty with weaning. tolerated 4 hours of t-piece yesterday. plan to continue slow weaning as able. Ventilator bundle. Ipratropium/albuterol aerosols every 6 hours with albuterol aerosols every 2 hours Chest tube d/c'd 05/12 GI/liver: Elevated transaminases Hypoalbuminemia Severe protein calorie malnutrition Small bowel ileus- resolving. Hepatitis C antibody positive with negative genotype/viral load Continue PEG tube feeding with Glucerna 1.5 goal 45 cc an hour Lansoprazole 30 mg daily for GI regimen Docusate sodium 100 mg twice a day for bowel regimen and polyethylene glycol 17 g daily Erythromycin 250 mg 3 times a day for prokinetic will be discontinued today Previous CT abdomen/pelvis 05/07 - mild ascites. Large left hemothorax. Right greater than left pleural effusion. Abdominal x-ray 06/16- small bowel ileus Check liver ultrasound today Endocrine: Diabetes mellitus Detemir 7 units subcutaneous daily. SSI high dose q4h. 9 units sliding scale insulin past 24 hours Holding glimepiride 4 mg by mouth daily /Renal/FEN: Hyponatremia Strict intake output, monitor and replete electrolytes, follow BUN/creatinine. Moser catheter placed for urinary retention on 04/26. Moser removed 05/19 with q6h straight cath. Moser replaced again due to persistent urinary retention. Follow-up on BMP/magnesium phosphorus in a.m. Heme: Chronic Rivaroxaban use Leukocytosis Normocytic anemia Thrombocytosis Follow CBC and coags. On subcutaneous enoxaparin 40 mg daily subcutaneous Hemoglobin currently stable. No indications for transfusion of blood proximally at this time ID: MSSA bacteremia - resolved. Serratia/staph aureus pneumonia - resolved. C glabrata UTI - resolved. Citrobacter UTI - resolved. Pertinent cultures Urine culture 04/26/17 sofie glabrata Blood culture 04/29/17 1 out of 4 bottles staph aureus Sputum culture 04/30/17 MSSA and Serratia. urine 05/07-> Serratia, treated. Urine 05/25: Citrobacter Ceftriaxone started 05/26, changed to Cefepime 05/27 based on sensitivity, stopped 06/03/17 MSK: Left Intertroch Hip Fx s/p IMN Vitamin D deficiency Continue calcium vitamin D 250/125 one tablet 3x a day and cholecalciferol 5000 units daily. PT/OT evaluate and treat Prophylaxis: SCDs. Enoxaparin 40 mg subcutaneous daily-cleared by Dr. Malave. GI - lansoprazole 30 mg by PEG tube daily Level II follow-up Sal Carney MD Jun 19, 2017 06:50
[2017-06-19 07:11] LABS: BANDS 1 % (0-6); LYMPHOCYTES 24 % (9-44); MONOCYTES 7 % (0-8); MYELOCYTES 3 % (0-0); NEUTROPHIL # MANUAL DIFF 7.4 TH/MM3 (1.8-7.7); POLYS (SEG NEUTROPHILS) 64 % (16-70)
[2017-06-19] MEDS: DOCUSATE SODIUM 100 MG/10 ML UDC PO SCH ×2 (09:00→21:00)
[2017-06-19] MEDS: POLYETHYLENE GLYCOL 17 GM PKG PO SCH (09:00)
[2017-06-19] MEDS: ASPIRIN 325 MG TAB DOBHOFF SCH (09:54)
[2017-06-19] MEDS: ENOXAPARIN SODIUM 40 MG/0.4 ML SYRINGE SQ SCH (09:54)
[2017-06-19] MEDS: LISINOPRIL 10 MG TAB PO SCH ×2 (09:54→21:24)
[2017-06-19] MEDS: LANSOPRAZOLE SOLUTAB 30 MG TAB NG SCH (09:54)
[2017-06-19] MEDS: SODIUM CHLORIDE 0.9% FLUSH 5 ML FLUSH IV FLUSH SCH ×2 (09:54→19:47)
[2017-06-19] MEDS: CHOLECALCIFEROL (VIT D3) 5000 UNIT CAP PO SCH (09:54)
[2017-06-19] MEDS: CALCIUM/VITAMIN D 250 MG/125 U TAB PO SCH ×3 (09:54→17:55)
[2017-06-19] MEDS: BENEPROTEIN POWDER 1 PACK G-TUBE SCH ×3 (09:55→17:56)
[2017-06-19] MEDS: INSULIN DETEMIR 100 UNITS/ML VIAL SQ SCH ×2 (09:55→21:24)
--- NOTE | 2017-06-19 15:40 | RADRPT ---
EXAM DATE/TIME: 06/19/2017 13:20 [facility] COMPARISON: CT ABDOMEN & PELVIS W CONTRAST, May 07, 2017, 13:23. INDICATIONS : Elevated lab values. MEDICAL HISTORY : Cerebrovascular disease. Hypertension. SURGICAL HISTORY : None. ENCOUNTER: Subsequent ACUITY: 1 day PAIN SCORE: Nonresponsive. LOCATION: Bilateral upper quadrant MEASUREMENTS: LIVER: 14.9 cm length COMMON DUCT: 4 mm RIGHT KIDNEY: 11.3 x 4.6 x 6.3 cm SPLEEN: 11.6 cm length FINDINGS: LIVER: Mild increased echotexture without focal lesion or ductal dilatation. The main portal vein is patent with hepatopedal blood flow. COMMON DUCT: No intraluminal mass or stone visualized. GALLBLADDER: Contains no stones, demonstrates no wall thickening or pericholecystic fluid. There is layering slud ge in the gallbladder. PANCREAS: The visualized portions are within normal limits. RIGHT KIDNEY: No hydronephrosis, stone or mass. There is trace perinephric fluid. SPLEEN: No focal lesion. CONCLUSION: 1. Mildly increased echotexture of the liver characteristic of hepatic steatosis. 2. Gallbladder sludge. Obdulio Sam MD on June 19, 2017 at 15:25 Board Certified Radiologist. This report was verified electronically.
[2017-06-19] MEDS: hydrALAZINE HCL 20 MG/ML VIAL IV PUSH PRN (19:29)
[2017-06-20] VITALS (18 sets, daily range): BP systolic 135–173; BP diastolic 65–81; PULSE 66–90; RESP 14; TEMP 98–99.2; O2SAT 94–99
[2017-06-20] MEDS: RESP: ALBUTEROL 2.5 MG/IPRATROPIUM 0.5 MG NEB (SCH) NEB ×5 (03:14→19:42)
[2017-06-20] MEDS: hydrALAZINE HCL 20 MG/ML VIAL IV PUSH PRN ×3 (05:28→13:55)
[2017-06-20] MEDS: ARTIFICIAL TEARS OPTH SOLN 15 ML BTL EACH EYE SCH ×3 (06:00→21:14)
[2017-06-20] MEDS: INSULIN ASPART SUPPLEMENTAL SCALE SQ SCH ×3 (06:00→17:06)
[2017-06-20] MEDS: DOCUSATE SODIUM 100 MG/10 ML UDC PO SCH ×2 (07:18→21:00)
[2017-06-20] MEDS: POLYETHYLENE GLYCOL 17 GM PKG PO SCH (07:19)
[2017-06-20] MEDS: SODIUM CHLORIDE 0.9% FLUSH 5 ML FLUSH IV FLUSH SCH ×2 (08:08→21:12)
[2017-06-20] MEDS: CALCIUM/VITAMIN D 250 MG/125 U TAB PO SCH ×3 (08:08→17:07)
[2017-06-20] MEDS: ASPIRIN 325 MG TAB DOBHOFF SCH (08:08)
[2017-06-20] MEDS: BENEPROTEIN POWDER 1 PACK G-TUBE SCH ×3 (08:08→17:07)
[2017-06-20] MEDS: LANSOPRAZOLE SOLUTAB 30 MG TAB NG SCH (08:08)
[2017-06-20] MEDS: ENOXAPARIN SODIUM 40 MG/0.4 ML SYRINGE SQ SCH (08:08)
[2017-06-20] MEDS: INSULIN DETEMIR 100 UNITS/ML VIAL SQ SCH ×2 (08:08→21:12)
[2017-06-20] MEDS: CHOLECALCIFEROL (VIT D3) 5000 UNIT CAP PO SCH (08:08)
[2017-06-20] MEDS: LISINOPRIL 10 MG TAB PO SCH ×2 (08:08→21:12)
--- NOTE | 2017-06-20 09:28 | HHI.CCPN ---
Subjective Remarks/Hospital Course 04/24: 76-year-old female with a medical history significant for prior stroke, diabetes mellitus who was admitted with DKA and a hip fracture for which she underwent ORIF on 04/21. Patient developed altered mental status and was last noted to be okay around 5:30 AM. Subsequently there was a change in her mental status and she was noted to not be moving her right side for which stroke alert was called. Head CT showed large left MCA territory ischemic infarct with edema. Patient was transferred to the ICU by family medicine service in the critical care consult was requested. I evaluated the patient following arrival to the ICU. At that time she was laying in bed with her eyes open however not following commands and had a dense right hemiplegia. Patient was also evaluated by Dr. Malave from neurology. I further discussed current event with patient's daughter following her arrival to the ICU. Per the daughter patient has been living with her since her stroke in 2014 and does ambulate however has been having problems with memory and incontinence as well as gait difficulties. She does not feel patient would want intubation or tracheostomy or PEG tube. 04/25: Patient remains encephalopathic, awake though not following commands consistently. Dense right hemiplegia persists. Appears to be awake enough to protect airway currently. Patient's daughter rescinded DNR and made a full code last evening. 04/26: Remains encephalopathic, not following commands. On Dobbhoff for tube feeds at 30 cc per hour. Had urinary retention and drained 2 L of urine after placing Moser catheter today. CT head done this morning with large left MCA territory infarct with left to right midline shift and significant cerebral edema. Hyperglycemia noted. Patient given mannitol earlier for increasing cerebral edema. 04/27: Remains encephalopathic, not following commands. On Dobbhoff tube feeds at 30 cc per hour. When into A. fib with RVR last night which responded with Lopressor 5 mg IV 1 dose. 04/28: Remains encephalopathic, arousable, not following commands. Moves left upper extremity spontaneously. Tolerating Dobbhoff tube feeds. Remains on nasal cannula. 04/29: Encephalopathic, eyes be arousable, moves left upper extremity spontaneously and occasionally opens eyes. Dense right hemiplegia and aphasia persists. On nasal cannula. Dobbhoff tube feeds being advanced. Patient was transfused 1 unit PRBCs yesterday. Urine culture with yeast from yesterday for which fluconazole being started. Had brief run of A. fib with RVR which improved with Lopressor IV, currently in sinus rhythm. 04/30: Worsening hypoxemic respiratory failure, currently on partial nonrebreather. Remains lethargic. WBC count increased from 14.6 today 20.7. Chest x-ray shows bilateral worsening infiltrates and small pleural effusions. Sodium 154, weight up by 8 KG. Albumin 1 mg Bumex 1. Also one dose of albumin. Remains in sinus tachycardia. Tmax 101.3 05/01: Patient was intubated yesterday for lack of airway protection, and severe hypoxemic respiratory failure from aspiration pneumonia involving multiple lobes. Patient is on the vent lethargic, no spontaneous eye opening. Chest x- ray remains unchanged. Remains intermittently febrile Tmax 101.3. WBC count improving 05/02: Remains critically ill with no improvement in mental status. Spiking fever of 101.7. Blood culture and sputum culture with staph aureus sputum also growing GNR, WBC count 22,000 now indicating worsening sepsis. Daughter still requesting aggressive care. Palliative care is following 05/03: S/P large area dominant hemisphere CVA. No neurological improvement. Now with pneumonia (infiltrate, fever, leukocytosis) and appropriate abx coverage. She will have a hard time surviving the hip fx, CVA, and pneumonia. Palliative Care needs to be a mainstay of our plan. 05/04: No improvement in neuro status. Sputum C&S allows us to narrow abx coverage to levaquin alone. Lungs remain quite congested. Enteral nutrition tolerated. 05/05: No improvement in neuro status. Moves left arm spontaneously. Flaccid right side. Unresponsive. Persistent mild hypoglycemia - will cut Levemir 50%. Abdomen more distended, check KUB. 05/06: CT head with massive left MCA infarction and > 1 cm shift in right handed woman. She opens eyes, does not track. 05/07: Patient open eyes. Attempts to respond. [place] speaking. Tolerating tube feeds. Positive bowel movement. Volume overloaded. 05/08: Tmax 99.4. Potassium being replaced. Ultrasound gallbladder currently pending. Transaminases are trending downward. Gently diurese. 05/09: Alk phos decreasing. Remains with good urine output. Neurological status not improving. 05/10: Fixed neuro deficit unchanged. Profound CVA. 05/11: Appears to track with eyes today. No improvement in motor function. Remains very edematous, diuretics doubled. 05/12: Continued thick secretions. Afebrile, leukocytosis resolved. 05/13: CT head with completed left MCA stroke, persistent edema and 5 mm shift away. Does not last long on SBTs - major decision now is trach/PEG. 05/14: Daughter has decided to proceed with trach and PEG. I have been pessimistic with her about chances for a meaningful recovery. 05/15: Plan for trach today. No change in neuro status. Still ventilator dependent. 05/16: Trach completed. Await PEG and disposition. 05/17: PEG placed 05/16. Start TFs today after nutrition consult. Work to place patient. 05/18: No improvement. Does open eyes, no focus or tracking. Completed large dominant (left) hemisphere CVA in right handed woman with severe deficit. Medicaid pending status, [facility] is following. 05/19: no improvements in neuro exam. ready for LTAC. will d/c moser and rectal tubes. 05/20: no changes or improvements. very difficult placement due to patient not [place] citizen. 05/21: no improvements. resting on vent overnight due to distress. 05/22: no neurologic changes. no improvements. attempted T-piece which failed after 10 minutes. 05/23: no improvements. poor prognosis. poor neuro exam. still failing weaning trials. 05/24: no improvements or changes. still failing t-piece trials. 05/25: No acute changes of improvement overnight. Failed CPAP due to apnea, tried again currently tolerating. Neurological exam unchanged. 05/26: No improvement in neurological function. 05/27: Patient has required Moser catheter because of breakdown of skin on upper thighs and groin. Urine has become infected, will treat. 05/28: Some drainage from around trach (placed 2 weeks ago). Will change out trach tube and inspect neck wound. I&O straight cath q6h order entered 05/17. 05/29: No improvement, remains obtunded. Failed CPAP trials yesterday and again today due to apnea. Moser placed due to persistent urinary retention 05/30: Obtunded, unresponsive. Failed SBTs, remains ventilator dependent. 05/31: Patient continues to fail SBT failed yesterday due to apnea. Neuro exam remains unchanged. 06/01: No acute changes overnight, 06/02: no changes. ekg done overnight for ? EKG changes seen on telemetry which were not visualized on EKG. 06/03: no improvements or changes. had long conversation with daughter yesterday. only facility which would accept patient is in [place] and daughter is refusing to allow patient to go there because it is "too far away." Daughter continues to push for aggressive care despite no improvements, and resistant to Hospice. Patient does not need acute inpatient therapy but lacks funding for appropriate disposition. 06/04: No acute events overnight, failed SBT due to apnea. 06/05: No acute events, continues to fail spontaneous breathing trials. Unable to wean 06/06 Currently tolerating CPAP. Will attempt TP today up to 4 hours. No acute events overnight 06/07: Tolerating trach collar/T-piece. Transfer soon. 06/08: Awaiting transfer. 06/09: Remains ventilator dependent. No improvement in neurological function. 06/10: No improvement. Daughter is not attending preplanned meetings to discuss disposition 06/12: Afebrile. Neurologically stable and unchanged. Noted sodium 135. Adding sodium chloride tablets 1 today. Not on free water.. Tolerating tube feeds at goal 45 cc an hour. 06/13: No improvement in neurological function. 06/14: No improvement. Fluid balance correct. Gas exchange acceptable. 06/15: No improvement. Obtunded and unresponsive. 06/16: no improvements in mental status. KUB overnight with dilated small bowel loops. given methylnaltrexone and erythromycin. today abdomen is soft and tolerating tube feeds. 06/17: tolerated t-piece x 6 hours yesterday. rested on cpap overnight. no changes in encephalopathy. 06/18: Currently on ventilator overnight. Multiple bowel movements. Thick yellow secretions noted in ventilator circuit. Opens eyes. 06/19: Afebrile. Tolerating stretcher chair yesterday on PSV. Tolerating tube feeding. Neurologically unchanged. Subjective 06/20: Afebrile. Resting in bed in no acute distress in sitting position. Currently on ventilator set sitting. Tolerated stretcher chair/PSV trial 6 hours yesterday. Neurologically unchanged. Objective Vital Signs Date Time Temp Pulse Resp B/P (MAP) Pulse Ox O2 Delivery O2 Flow Rate FiO2 06/20/17 08:00 70 06/20/17 08:00 35 06/20/17 08:00 99.2 14 148/70 (96) 99 06/19/17 13:20 T-piece 5.00 Intake and Output 06/20/17 06/20/17 06/21/17 08:00 16:00 00:00 Intake Total 613 ml Output Total 450 ml Balance 163 ml Result Diagram: 06/19/17 0353 06/19/17 0353 Other Results Microbiology Date/Time Source Procedure Growth Status 05/08/17 04:44 Blood Peripheral Aerobic Blood Culture - Final NO GROWTH IN 5 DAYS Complete 05/08/17 04:44 Blood Peripheral Anaerobic Blood Culture - Final NO GROWTH IN 5 DAYS Complete 05/29/17 17:15 Stool Stool Stool Occult Blood (JEFFREY) - Final HEMOCCULT NEGATIVE Complete 06/18/17 10:00 Sputum Endotracheal Gram Stain - Final Resulted 06/18/17 10:00 Sputum Culture - Preliminary Serratia Marcescens Staphylococcus Species Resulted 05/25/17 15:00 Urine Catheterized Urine Urine Culture - Final Citrobacter Freundii Complete Imaging Last Impressions Liver Ultrasound 06/19/17 0000 Signed Impressions: Service Date/Time: June 13:20 - CONCLUSION: 1. Mildly increased echotexture of the liver characteristic of hepatic steatosis. 2. Gallbladder sludge. Obdulio Sam MD Abdomen X-Ray 06/16/17 0000 Signed Impressions: Service Date/Time: Friday, June 16, 2017 04:48 - CONCLUSION: 1. Continued small bowel ileus. There has been no significant change when compared to the prior exam. Toy Duran MD Chest X-Ray 06/13/17 0600 Signed Impressions: Service Date/Time: Tuesday, June 13, 2017 01:32 - CONCLUSION: 1. Tracheostomy with scattered airspace disease in the lungs similar to prior examination. Jaime Velasquez MD Head CT 05/15/17 0000 Signed Impressions: Service Date/Time: May 19:59 - CONCLUSION: 1. 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 2. No bleed or new/acute infarct. Obdulio Simms MD Gall Bladder Ultrasound 05/08/17 0000 Signed Impressions: Service Date/Time: May 08:23 - CONCLUSION: Focally unremarkable appearance of the gallbladder Obdulio Chun MD Abdomen/Pelvis CT 05/07/17 0000 Signed Impressions: Service Date/Time: Sunday, May 07, 2017 13:23 - CONCLUSION: 1. Large left pneumothorax. 2. Bilateral lower lobe consolidation and bilateral moderate size pleural effusions. 3. Significant soft tissue thickening of the right lateral chest wall and left gluteus muscle. 4. Mild ascites. The findings were called to Dr. Carney. Deangelo Zamora MD Hip and Pelvis X-Ray 05/05/17 0000 Signed Impressions: Service Date/Time: Friday, May 05, 2017 10:59 - CONCLUSION: Left proximal femur trochanteric/subtrochanteric fracture lucency visualized. Postoperative changes. Choco Mustafa MD Chest CT 04/30/17 0000 Signed Impressions: Service Date/Time: Sunday, April 30, 2017 09:20 - CONCLUSION: 1. Bilateral pulmonary infiltrates more pronounced within the lower lobes with tiny bilateral pleural effusions. Material seen filling the lower lobe bronchi bilaterally either related to purulent material or perhaps mucus plugging. Deagnelo Wren Jr., MD Carotid Artery Ultrasound 04/24/17 0000 Signed Impressions: Service Date/Time: April 09:45 - CONCLUSION: 1. No hemodynamically significant carotid artery stenosis. Arnie Middleton MD Hip X-Ray 04/21/17 0000 Signed Impressions: Service Date/Time: Friday, April 21, 2017 11:36 - CONCLUSION: Fluoroscopic images during placement of intramedullary siomara left femur. Benja Ramsey MD Objective Remarks Gen: 76-year-old female, resting in bed in no acute distress HEENT: mucous membranes moist. And pink. Oropharynx without erythema. No thrush. Neck: Trach site clean and dry. #8 Shiley. Supple. Resp: Transmitted upper airway sounds clear with suctioning/coughing. No wheezing Cardiovascular: RRR. S1, S2. No S4. No murmurs, no JVD. GI/abdomen: Soft, nontender, somewhat protuberant. PEG tube site is clean dry and intact. Extremities: Warm, well perfused. No rash Neuro: Eyes open with coughing. Dense right hemiplegia. Withdraws left upper extremity, Withdraws LLE. Pupils 2 mm, react bilaterally. A/P Assessment and Plan Neuro/Psych: Left MCA CVA - 5.5 mm of [id number] subfalcine herniation. right-sided hemiplegia Acute encephalopathy History CVA Continue Aspirin 325 mg by mouth daily. On admission, patient was not a candidate for thrombolysis per discussion with neurology and radiology. Repeat head CT 05/15 showed slight improvement in the midline shift now 5.5 mm and mass effect Neurosurgery consulted 04/30- Dr. López, recommended conservative management. Neurology Dr. Malave has followed Cardiovascular: Hypertension As needed Antihypertensives to keep systolic blood pressure less than to 160 mmHg (when necessary IV labetalol and IV hydralazine) Lisinopril 10 mg twice a day 05/31/17, with improved BP control Currently on furosemide 40 mg by PEG daily for gentle diuresis Echocardiogram 04/24 - EF 50 to 55%. Mild concentric LVH. Pulmonary: Acute hypoxic respiratory failure - aspiration possible HCAP - resolved. chronic vent dependent respiratory failure Large left pneumothorax status post #10 Tamazight chest tube 05/07 - resolved. Chronic respiratory failure, currently on PRVC. 14//09/05/34 PSV trials as tolerated and transition to T piece as able. persistent difficulty with weaning. tolerated 4 hours of t-piece yesterday. plan to continue slow weaning as able. Ventilator bundle. Ipratropium/albuterol aerosols every 6 hours with albuterol aerosols every 2 hours Chest tube d/c'd 05/12 GI/liver: Elevated transaminases Hypoalbuminemia Severe protein calorie malnutrition Small bowel ileus- resolving. Hepatitis C antibody positive with negative genotype/viral load Continue PEG tube feeding with Glucerna 1.5 goal 45 cc an hour Lansoprazole 30 mg daily for GI regimen Docusate sodium 100 mg twice a day for bowel regimen and polyethylene glycol 17 g daily Erythromycin 250 mg 3 times a day for prokinetic will be discontinued today Previous CT abdomen/pelvis 05/07 - mild ascites. Large left hemothorax. Right greater than left pleural effusion. Abdominal x-ray 06/16- small bowel ileus Check liver ultrasound 06/19 revealed hepatic steatosis and gallbladder sludge Endocrine: Diabetes mellitus Detemir 7 units subcutaneous daily. SSI high dose q4h. Holding glimepiride 4 mg by mouth daily /Renal/FEN: Hyponatremia Strict intake output, monitor and replete electrolytes, follow BUN/creatinine. Moser catheter placed for urinary retention on 04/26. Moser removed 05/19 with q6h straight cath. Moser replaced again due to persistent urinary retention. Follow-up on BMP/magnesium phosphorus in a.m. Heme: Chronic Rivaroxaban use Leukocytosis Normocytic anemia Thrombocytosis Follow CBC and coags. On subcutaneous enoxaparin 40 mg daily subcutaneous Hemoglobin currently stable. No indications for transfusion of blood proximally at this time ID: MSSA bacteremia - resolved. Serratia/staph aureus pneumonia - resolved. C glabrata UTI - resolved. Citrobacter UTI - resolved. Pertinent cultures Urine culture 04/26/17 sofie glabrata Blood culture 04/29/17 1 out of 4 bottles staph aureus Sputum culture 04/30/17 MSSA and Serratia. urine 05/07-> Serratia, treated. Urine 05/25: Citrobacter Ceftriaxone started 05/26, changed to Cefepime 05/27 based on sensitivity, stopped 06/03/17 MSK: Left Intertroch Hip Fx s/p IMN Vitamin D deficiency Continue calcium vitamin D 250/125 one tablet 3x a day and cholecalciferol 5000 units daily. PT/OT evaluate and treat Prophylaxis: SCDs. Enoxaparin 40 mg subcutaneous daily-cleared by Dr. Malave. GI - lansoprazole 30 mg by PEG tube daily Level II follow-up Sal Carney MD Jun 20, 2017 09:28
[2017-06-21] VITALS (17 sets, daily range): BP systolic 148–188; BP diastolic 67–88; PULSE 66–94; RESP 14; TEMP 97.8–100.8; O2SAT 98–100
[2017-06-21] MEDS: INSULIN ASPART SUPPLEMENTAL SCALE SQ SCH ×4 (00:52→17:23)
[2017-06-21] MEDS: RESP: ALBUTEROL 2.5 MG/IPRATROPIUM 0.5 MG NEB (SCH) NEB ×4 (03:28→20:05)
[2017-06-21] MEDS: hydrALAZINE HCL 20 MG/ML VIAL IV PUSH PRN ×3 (04:06→22:57)
[2017-06-21] MEDS: ARTIFICIAL TEARS OPTH SOLN 15 ML BTL EACH EYE SCH ×3 (05:15→20:09)
[2017-06-21] MEDS ORDERED: Vancomycin Consult Pharmacy 1 EA OTHER SCH (07:30)
--- NOTE | 2017-06-21 07:30 | HHI.CCPN ---
Subjective Remarks/Hospital Course 04/24: 76-year-old female with a medical history significant for prior stroke, diabetes mellitus who was admitted with DKA and a hip fracture for which she underwent ORIF on 04/21. Patient developed altered mental status and was last noted to be okay around 5:30 AM. Subsequently there was a change in her mental status and she was noted to not be moving her right side for which stroke alert was called. Head CT showed large left MCA territory ischemic infarct with edema. Patient was transferred to the ICU by family medicine service in the critical care consult was requested. I evaluated the patient following arrival to the ICU. At that time she was laying in bed with her eyes open however not following commands and had a dense right hemiplegia. Patient was also evaluated by Dr. Malave from neurology. I further discussed current event with patient's daughter following her arrival to the ICU. Per the daughter patient has been living with her since her stroke in 2014 and does ambulate however has been having problems with memory and incontinence as well as gait difficulties. She does not feel patient would want intubation or tracheostomy or PEG tube. 04/25: Patient remains encephalopathic, awake though not following commands consistently. Dense right hemiplegia persists. Appears to be awake enough to protect airway currently. Patient's daughter rescinded DNR and made a full code last evening. 04/26: Remains encephalopathic, not following commands. On Dobbhoff for tube feeds at 30 cc per hour. Had urinary retention and drained 2 L of urine after placing Moser catheter today. CT head done this morning with large left MCA territory infarct with left to right midline shift and significant cerebral edema. Hyperglycemia noted. Patient given mannitol earlier for increasing cerebral edema. 04/27: Remains encephalopathic, not following commands. On Dobbhoff tube feeds at 30 cc per hour. When into A. fib with RVR last night which responded with Lopressor 5 mg IV 1 dose. 04/28: Remains encephalopathic, arousable, not following commands. Moves left upper extremity spontaneously. Tolerating Dobbhoff tube feeds. Remains on nasal cannula. 04/29: Encephalopathic, eyes be arousable, moves left upper extremity spontaneously and occasionally opens eyes. Dense right hemiplegia and aphasia persists. On nasal cannula. Dobbhoff tube feeds being advanced. Patient was transfused 1 unit PRBCs yesterday. Urine culture with yeast from yesterday for which fluconazole being started. Had brief run of A. fib with RVR which improved with Lopressor IV, currently in sinus rhythm. 04/30: Worsening hypoxemic respiratory failure, currently on partial nonrebreather. Remains lethargic. WBC count increased from 14.6 today 20.7. Chest x-ray shows bilateral worsening infiltrates and small pleural effusions. Sodium 154, weight up by 8 KG. Albumin 1 mg Bumex 1. Also one dose of albumin. Remains in sinus tachycardia. Tmax 101.3 05/01: Patient was intubated yesterday for lack of airway protection, and severe hypoxemic respiratory failure from aspiration pneumonia involving multiple lobes. Patient is on the vent lethargic, no spontaneous eye opening. Chest x- ray remains unchanged. Remains intermittently febrile Tmax 101.3. WBC count improving 05/02: Remains critically ill with no improvement in mental status. Spiking fever of 101.7. Blood culture and sputum culture with staph aureus sputum also growing GNR, WBC count 22,000 now indicating worsening sepsis. Daughter still requesting aggressive care. Palliative care is following 05/03: S/P large area dominant hemisphere CVA. No neurological improvement. Now with pneumonia (infiltrate, fever, leukocytosis) and appropriate abx coverage. She will have a hard time surviving the hip fx, CVA, and pneumonia. Palliative Care needs to be a mainstay of our plan. 05/04: No improvement in neuro status. Sputum C&S allows us to narrow abx coverage to levaquin alone. Lungs remain quite congested. Enteral nutrition tolerated. 05/05: No improvement in neuro status. Moves left arm spontaneously. Flaccid right side. Unresponsive. Persistent mild hypoglycemia - will cut Levemir 50%. Abdomen more distended, check KUB. 05/06: CT head with massive left MCA infarction and > 1 cm shift in right handed woman. She opens eyes, does not track. 05/07: Patient open eyes. Attempts to respond. [place] speaking. Tolerating tube feeds. Positive bowel movement. Volume overloaded. 05/08: Tmax 99.4. Potassium being replaced. Ultrasound gallbladder currently pending. Transaminases are trending downward. Gently diurese. 05/09: Alk phos decreasing. Remains with good urine output. Neurological status not improving. 05/10: Fixed neuro deficit unchanged. Profound CVA. 05/11: Appears to track with eyes today. No improvement in motor function. Remains very edematous, diuretics doubled. 05/12: Continued thick secretions. Afebrile, leukocytosis resolved. 05/13: CT head with completed left MCA stroke, persistent edema and 5 mm shift away. Does not last long on SBTs - major decision now is trach/PEG. 05/14: Daughter has decided to proceed with trach and PEG. I have been pessimistic with her about chances for a meaningful recovery. 05/15: Plan for trach today. No change in neuro status. Still ventilator dependent. 05/16: Trach completed. Await PEG and disposition. 05/17: PEG placed 05/16. Start TFs today after nutrition consult. Work to place patient. 05/18: No improvement. Does open eyes, no focus or tracking. Completed large dominant (left) hemisphere CVA in right handed woman with severe deficit. Medicaid pending status, [facility] is following. 05/19: no improvements in neuro exam. ready for LTAC. will d/c moser and rectal tubes. 05/20: no changes or improvements. very difficult placement due to patient not [place] citizen. 05/21: no improvements. resting on vent overnight due to distress. 05/22: no neurologic changes. no improvements. attempted T-piece which failed after 10 minutes. 05/23: no improvements. poor prognosis. poor neuro exam. still failing weaning trials. 05/24: no improvements or changes. still failing t-piece trials. 05/25: No acute changes of improvement overnight. Failed CPAP due to apnea, tried again currently tolerating. Neurological exam unchanged. 05/26: No improvement in neurological function. 05/27: Patient has required Moser catheter because of breakdown of skin on upper thighs and groin. Urine has become infected, will treat. 05/28: Some drainage from around trach (placed 2 weeks ago). Will change out trach tube and inspect neck wound. I&O straight cath q6h order entered 05/17. 05/29: No improvement, remains obtunded. Failed CPAP trials yesterday and again today due to apnea. Moser placed due to persistent urinary retention 05/30: Obtunded, unresponsive. Failed SBTs, remains ventilator dependent. 05/31: Patient continues to fail SBT failed yesterday due to apnea. Neuro exam remains unchanged. 06/01: No acute changes overnight, 06/02: no changes. ekg done overnight for ? EKG changes seen on telemetry which were not visualized on EKG. 06/03: no improvements or changes. had long conversation with daughter yesterday. only facility which would accept patient is in [place] and daughter is refusing to allow patient to go there because it is "too far away." Daughter continues to push for aggressive care despite no improvements, and resistant to Hospice. Patient does not need acute inpatient therapy but lacks funding for appropriate disposition. 06/04: No acute events overnight, failed SBT due to apnea. 06/05: No acute events, continues to fail spontaneous breathing trials. Unable to wean 06/06 Currently tolerating CPAP. Will attempt TP today up to 4 hours. No acute events overnight 06/07: Tolerating trach collar/T-piece. Transfer soon. 06/08: Awaiting transfer. 06/09: Remains ventilator dependent. No improvement in neurological function. 06/10: No improvement. Daughter is not attending preplanned meetings to discuss disposition 06/12: Afebrile. Neurologically stable and unchanged. Noted sodium 135. Adding sodium chloride tablets 1 today. Not on free water.. Tolerating tube feeds at goal 45 cc an hour. 06/13: No improvement in neurological function. 06/14: No improvement. Fluid balance correct. Gas exchange acceptable. 06/15: No improvement. Obtunded and unresponsive. 06/16: no improvements in mental status. KUB overnight with dilated small bowel loops. given methylnaltrexone and erythromycin. today abdomen is soft and tolerating tube feeds. 06/17: tolerated t-piece x 6 hours yesterday. rested on cpap overnight. no changes in encephalopathy. 06/18: Currently on ventilator overnight. Multiple bowel movements. Thick yellow secretions noted in ventilator circuit. Opens eyes. 06/19: Afebrile. Tolerating stretcher chair yesterday on PSV. Tolerating tube feeding. Neurologically unchanged. 06/20: Afebrile. Resting in bed in no acute distress in sitting position. Currently on ventilator set sitting. Tolerated stretcher chair/PSV trial 6 hours yesterday. Neurologically unchanged. Subjective 06/21: Tmax 100.8. Patient with copious thick yellow secretions. Tolerating tube feeds. Positive bowel movement. Lasted only 1 hour PSV yesterday Objective Vital Signs Date Time Temp Pulse Resp B/P (MAP) Pulse Ox O2 Delivery O2 Flow Rate FiO2 06/21/17 06:00 79 06/21/17 04:12 99 35 06/21/17 04:00 98.6 14 188/88 (121) 06/19/17 13:20 T-piece 5.00 Intake and Output 06/21/17 06/21/17 06/22/17 08:00 16:00 00:00 Intake Total 526 ml Output Total 500 ml Balance 26 ml Result Diagram: 06/19/17 0353 06/19/17 0353 Other Results Microbiology Date/Time Source Procedure Growth Status 05/08/17 04:44 Blood Peripheral Aerobic Blood Culture - Final NO GROWTH IN 5 DAYS Complete 05/08/17 04:44 Blood Peripheral Anaerobic Blood Culture - Final NO GROWTH IN 5 DAYS Complete 05/29/17 17:15 Stool Stool Stool Occult Blood (JEFFREY) - Final HEMOCCULT NEGATIVE Complete 06/18/17 10:00 Sputum Endotracheal Gram Stain - Final Resulted 06/18/17 10:00 Sputum Culture - Preliminary Serratia Marcescens Staphylococcus Species Resulted 05/25/17 15:00 Urine Catheterized Urine Urine Culture - Final Citrobacter Freundii Complete Imaging Last Impressions Liver Ultrasound 06/19/17 0000 Signed Impressions: Service Date/Time: June 13:20 - CONCLUSION: 1. Mildly increased echotexture of the liver characteristic of hepatic steatosis. 2. Gallbladder sludge. Obdulio Sam MD Abdomen X-Ray 06/16/17 0000 Signed Impressions: Service Date/Time: Friday, June 16, 2017 04:48 - CONCLUSION: 1. Continued small bowel ileus. There has been no significant change when compared to the prior exam. Toy Duran MD Chest X-Ray 06/13/17 0600 Signed Impressions: Service Date/Time: Tuesday, June 13, 2017 01:32 - CONCLUSION: 1. Tracheostomy with scattered airspace disease in the lungs similar to prior examination. Jaime Velasquez MD Head CT 05/15/17 0000 Signed Impressions: Service Date/Time: May 19:59 - CONCLUSION: 1. 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 2. No bleed or new/acute infarct. Obdulio Simms MD Gall Bladder Ultrasound 05/08/17 0000 Signed Impressions: Service Date/Time: May 08:23 - CONCLUSION: Focally unremarkable appearance of the gallbladder Obdulio Chun MD Abdomen/Pelvis CT 05/07/17 0000 Signed Impressions: Service Date/Time: Sunday, May 07, 2017 13:23 - CONCLUSION: 1. Large left pneumothorax. 2. Bilateral lower lobe consolidation and bilateral moderate size pleural effusions. 3. Significant soft tissue thickening of the right lateral chest wall and left gluteus muscle. 4. Mild ascites. The findings were called to Dr. Carney. Deangelo Zamora MD Hip and Pelvis X-Ray 05/05/17 0000 Signed Impressions: Service Date/Time: Friday, May 05, 2017 10:59 - CONCLUSION: Left proximal femur trochanteric/subtrochanteric fracture lucency visualized. Postoperative changes. Choco Mustafa MD Chest CT 04/30/17 0000 Signed Impressions: Service Date/Time: Sunday, April 30, 2017 09:20 - CONCLUSION: 1. Bilateral pulmonary infiltrates more pronounced within the lower lobes with tiny bilateral pleural effusions. Material seen filling the lower lobe bronchi bilaterally either related to purulent material or perhaps mucus plugging. Deangelo Wren Jr., MD Carotid Artery Ultrasound 04/24/17 0000 Signed Impressions: Service Date/Time: April 09:45 - CONCLUSION: 1. No hemodynamically significant carotid artery stenosis. Arnie Middleton MD Hip X-Ray 04/21/17 0000 Signed Impressions: Service Date/Time: Friday, April 21, 2017 11:36 - CONCLUSION: Fluoroscopic images during placement of intramedullary siomara left femur. Benja Ramsey MD Objective Remarks Gen: 76-year-old female, resting in bed in no acute distress HEENT: mucous membranes moist. And pink. Oropharynx without erythema. No thrush. Neck: Trach site clean and dry. #8 [place]iley. Supple. Resp: Transmitted upper airway sounds clear with suctioning/coughing. No wheezing Cardiovascular: RRR. S1, S2. No S4. No murmurs, no JVD. GI/abdomen: Soft, nontender, somewhat protuberant. PEG tube site is clean dry and intact. Extremities: Warm, well perfused. No rash Neuro: Eyes open with coughing. Dense right hemiplegia. Withdraws left upper extremity, Withdraws LLE. Pupils 2 mm, react bilaterally. A/P Assessment and Plan Neuro/Psych: Left MCA CVA - 5.5 mm of [id number] subfalcine herniation. right-sided hemiplegia Acute encephalopathy History CVA Continue Aspirin 325 mg by mouth daily. On admission, patient was not a candidate for thrombolysis per discussion with neurology and radiology. Repeat head CT 05/15 showed slight improvement in the midline shift now 5.5 mm and mass effect Neurosurgery consulted 04/30- Dr. López, recommended conservative management. Neurology Dr. Malave has followed Cardiovascular: Hypertension As needed Antihypertensives to keep systolic blood pressure less than to 160 mmHg (when necessary IV labetalol and IV hydralazine) Lisinopril 10 mg twice a day 05/31/17, with improved BP control. Increase to 20 twice a day 06/21 Echocardiogram 04/24 - EF 50 to 55%. Mild concentric LVH. Pulmonary: Acute hypoxic respiratory failure - aspiration possible HCAP - resolved. chronic vent dependent respiratory failure Large left pneumothorax status post #10 [place] chest tube 05/07 - resolved. Chronic respiratory failure, currently on PRVC. 14/450///35 PSV trials as tolerated and transition to T piece as able. persistent difficulty with weaning. tolerated 4 hours of t-piece yesterday. plan to continue slow weaning as able. Ventilator bundle. Ipratropium/albuterol aerosols every 6 hours with albuterol aerosols every 2 hours Chest tube d/c'd 05/12 Adding guaifenesin 400 every 8 in hypertonic saline aerosols every 6 hours 8 days for secretions GI/liver: Elevated transaminases Hypoalbuminemia Severe protein calorie malnutrition Small bowel ileus- resolving. Hepatitis C antibody positive with negative genotype/viral load Continue PEG tube feeding with Glucerna 1.5 goal 45 cc an hour Lansoprazole 30 mg daily for GI regimen Docusate sodium 100 mg twice a day for bowel regimen and polyethylene glycol 17 g daily Erythromycin 250 mg 3 times a day for prokinetic will be discontinued today Previous CT abdomen/pelvis 05/07 - mild ascites. Large left hemothorax. Right greater than left pleural effusion. Abdominal x-ray 06/16- small bowel ileus Check liver ultrasound 06/19 revealed hepatic steatosis and gallbladder sludge Endocrine: Diabetes mellitus Detemir 10 units subcutaneous daily. SSI high dose q4h. Holding glimepiride 4 mg by mouth daily /Renal/FEN: Hyponatremia Strict intake output, monitor and replete electrolytes, follow BUN/creatinine. Moser catheter placed for urinary retention on 04/26. Moser removed 05/19 with q6h straight cath. Moser replaced again due to persistent urinary retention. Follow-up on BMP/magnesium phosphorus in a.m. Heme: Chronic Rivaroxaban use Leukocytosis Normocytic anemia Thrombocytosis Follow CBC and coags. On subcutaneous enoxaparin 40 mg daily subcutaneous Hemoglobin currently stable. No indications for transfusion of blood proximally at this time ID: MSSA bacteremia - resolved. Serratia/staph aureus pneumonia - resolved. C glabrata UTI - resolved. Citrobacter UTI - resolved. Serratia/staphylococcal sputum VAP Pertinent cultures Urine culture 04/26/17 sofie glabrata Blood culture 04/29/17 1 out of 4 bottles staph aureus Sputum culture 04/30/17 MSSA and Serratia. urine 05/07-> Serratia, treated. Urine 05/25: Citrobacter Ceftriaxone started 05/26, changed to Cefepime 05/27 based on sensitivity, stopped 06/03/17 Started on piperacillin/tazobactam and vancomycin 06/21 times 8 days for VAP MSK: Left Intertroch Hip Fx s/p IMN Vitamin D deficiency Continue calcium vitamin D 250/125 one tablet 3x a day and cholecalciferol 5000 units daily. PT/OT evaluate and treat Prophylaxis: SCDs. Enoxaparin 40 mg subcutaneous daily-cleared by Dr. Malave. GI - lansoprazole 30 mg by PEG tube daily Level II follow-up Sal Carney MD Jun 21, 2017 07:30
[2017-06-21] MEDS ORDERED: NITROGLYCERIN 2% OINT 1 GM PACKET TOPICAL PRN (08:00)
[2017-06-21] MEDS: PIPERACIL-TAZO 4.5 GM PREMIX 100 ML IV SCH ×3 (08:47→20:06)
[2017-06-21] MEDS: DOCUSATE SODIUM 100 MG/10 ML UDC PO SCH ×2 (08:47→20:04)
[2017-06-21] MEDS: LANSOPRAZOLE SOLUTAB 30 MG TAB NG SCH (08:48)
[2017-06-21] MEDS: ASPIRIN 325 MG TAB DOBHOFF SCH (08:48)
[2017-06-21] MEDS: CHOLECALCIFEROL (VIT D3) 5000 UNIT CAP PO SCH (08:48)
[2017-06-21] MEDS: LISINOPRIL 10 MG TAB PO SCH ×2 (08:48→20:06)
[2017-06-21] MEDS: CALCIUM/VITAMIN D 250 MG/125 U TAB PO SCH ×3 (08:48→17:20)
[2017-06-21] MEDS: BENEPROTEIN POWDER 1 PACK G-TUBE SCH ×3 (08:48→17:20)
[2017-06-21] MEDS: ENOXAPARIN SODIUM 40 MG/0.4 ML SYRINGE SQ SCH (08:48)
[2017-06-21] MEDS: POLYETHYLENE GLYCOL 17 GM PKG PO SCH (08:49)
[2017-06-21] MEDS: INSULIN DETEMIR 100 UNITS/ML VIAL SQ SCH ×2 (08:49→20:08)
[2017-06-21] MEDS: SODIUM CHLORIDE 0.9% FLUSH 5 ML FLUSH IV FLUSH SCH ×2 (08:49→20:04)
[2017-06-21] MEDS: RESP: SODIUM CHLORIDE 3% 4 ML NEB NEB SCH ×3 (10:00→20:06)
[2017-06-21] MEDS ORDERED: VANCOMYCIN 1,000 MG/NS 250 ML IV ONE ×2 (12:00)
[2017-06-21] MEDS: guaiFENesin SOLUTION 200 MG/10 ML CUP PEG SCH ×2 (13:13→21:17)
[2017-06-21] MEDS: LABETALOL HCL 100 MG/20 ML VIAL IV PUSH PRN (22:13)
[2017-06-22] VITALS (16 sets, daily range): BP systolic 137–187; BP diastolic 65–119; PULSE 58–77; RESP 14; TEMP 97.1–99; O2SAT 98–100
[2017-06-22] MEDS: VANCOMYCIN INJ 750 MG in SODIUM CHLOR 0.9% 250 ML INJ 250 ML IV SCH ×2 (00:11→13:30)
[2017-06-22] MEDS: INSULIN ASPART SUPPLEMENTAL SCALE SQ SCH ×4 (00:12→18:00)
[2017-06-22] MEDS: PIPERACIL-TAZO 4.5 GM PREMIX 100 ML IV SCH ×4 (02:02→19:50)
[2017-06-22] MEDS: RESP: SODIUM CHLORIDE 3% 4 ML NEB NEB SCH ×4 (03:22→19:31)
[2017-06-22] MEDS: RESP: ALBUTEROL 2.5 MG/IPRATROPIUM 0.5 MG NEB (SCH) NEB ×4 (03:22→19:31)
[2017-06-22 03:34] LABS: AUTOMATED NEUTROPHIL # 7.6 TH/MM3 (1.8-7.7); BASOPHIL # 0.1 TH/MM3 (0-0.2); BASOPHIL % 1.2 % (0.0-2.0); EOSINOPHIL # 0.4 TH/MM3 (0-0.4); EOSINOPHIL % 3.6 % (0.0-4.0); HEMATOCRIT 27.5 % (35.0-46.0); LYMPH % 18.3 % (9.0-44.0); MEAN CELL VOLUME 95.6 FL (80.0-100.0); MEAN CORPUSCULAR HEMOGLOBIN 31.3 PG (27.0-34.0); MEAN CORPUSCULAR HGB CONC 32.8 % (32.0-36.0); MEAN PLATELET VOLUME 9.1 FL (7.0-11.0); MONO % 6.4 % (0.0-8.0); MONOCYTE # 0.7 TH/MM3 (0-0.9); NEUT % 70.5 % (16.0-70.0); PLATELET COUNT 301 TH/MM3 (150-450); RED BLOOD COUNT 2.88 MIL/MM3 (4.00-5.30); RED CELL DISTRIBUTION WIDTH 17.2 % (11.6-17.2); WHITE BLOOD COUNT 10.7 TH/MM3 (4.0-11.0)
[2017-06-22 04:13] LABS: ALBUMIN 2.2 GM/DL (3.4-5.0); ALKALINE PHOSPHATASE 981 U/L (45-117); ALT (GPT) 75 U/L (10-53); AST (GOT) 43 U/L (15-37); BICARBONATE 26.3 MEQ/L (21.0-32.0); BLOOD UREA NITROGEN 38 MG/DL (7-18); CALCIUM 8.3 MG/DL (8.5-10.1); CHLORIDE 111 MEQ/L (98-107); GLOMERULAR FILTRATION RATE 217 ML/MIN (>89); GLUCOSE,RANDOM 109 MG/DL (74-106); MAGNESIUM 2.1 MG/DL (1.5-2.5); PHOSPHORUS 2.8 MG/DL (2.5-4.9); SODIUM (NA) 143 MEQ/L (136-145); TOTAL BILIRUBIN ADULT 0.3 MG/DL (0.2-1.0); TOTAL PROTEIN 6.4 GM/DL (6.4-8.2)
--- NOTE | 2017-06-22 05:10 | RADRPT ---
EXAM DATE/TIME: 06/22/2017 04:47 [facility] COMPARISON: CHEST SINGLE AP, May 15, 2017, 12:38. CHEST SINGLE AP, June 13, 2017, 1:32. INDICATIONS : Respiratory failure. Evaluate for pneumonia MEDICAL HISTORY : Congestive heart failure. Cerebrovascular disease. Hypertension. SURGICAL HISTORY : None. ENCOUNTER: Subsequent ACUITY: 1 week PAIN SCORE: Non-responsive. LOCATION: Bilateral chest FINDINGS: A single view of the chest demonstrates the lungs to be symmetrically aerated without evidence of mas s, infiltrate or effusion. The cardiomediastinal contours are unremarkable. The tracheostomy tube r emains in place and there is mild scarring. Osseous structures are intact. CONCLUSION: 1. Mild scarring with no evidence of pneumonia. Jose R Casanova MD on June 22, 2017 at 5:08 Board Certified Radiologist. This report was verified electronically.
[2017-06-22] MEDS: guaiFENesin SOLUTION 200 MG/10 ML CUP PEG SCH ×2 (05:38→13:29)
[2017-06-22] MEDS: ARTIFICIAL TEARS OPTH SOLN 15 ML BTL EACH EYE SCH ×3 (05:38→22:00)
--- NOTE | 2017-06-22 07:43 | HHI.CCPN ---
Subjective Remarks/Hospital Course 04/24: 76-year-old female with a medical history significant for prior stroke, diabetes mellitus who was admitted with DKA and a hip fracture for which she underwent ORIF on 04/21. Patient developed altered mental status and was last noted to be okay around 5:30 AM. Subsequently there was a change in her mental status and she was noted to not be moving her right side for which stroke alert was called. Head CT showed large left MCA territory ischemic infarct with edema. Patient was transferred to the ICU by family medicine service in the critical care consult was requested. I evaluated the patient following arrival to the ICU. At that time she was laying in bed with her eyes open however not following commands and had a dense right hemiplegia. Patient was also evaluated by Dr. Malave from neurology. I further discussed current event with patient's daughter following her arrival to the ICU. Per the daughter patient has been living with her since her stroke in 2014 and does ambulate however has been having problems with memory and incontinence as well as gait difficulties. She does not feel patient would want intubation or tracheostomy or PEG tube. 04/25: Patient remains encephalopathic, awake though not following commands consistently. Dense right hemiplegia persists. Appears to be awake enough to protect airway currently. Patient's daughter rescinded DNR and made a full code last evening. 04/26: Remains encephalopathic, not following commands. On Dobbhoff for tube feeds at 30 cc per hour. Had urinary retention and drained 2 L of urine after placing Moser catheter today. CT head done this morning with large left MCA territory infarct with left to right midline shift and significant cerebral edema. Hyperglycemia noted. Patient given mannitol earlier for increasing cerebral edema. 04/27: Remains encephalopathic, not following commands. On Dobbhoff tube feeds at 30 cc per hour. When into A. fib with RVR last night which responded with Lopressor 5 mg IV 1 dose. 04/28: Remains encephalopathic, arousable, not following commands. Moves left upper extremity spontaneously. Tolerating Dobbhoff tube feeds. Remains on nasal cannula. 04/29: Encephalopathic, eyes be arousable, moves left upper extremity spontaneously and occasionally opens eyes. Dense right hemiplegia and aphasia persists. On nasal cannula. Dobbhoff tube feeds being advanced. Patient was transfused 1 unit PRBCs yesterday. Urine culture with yeast from yesterday for which fluconazole being started. Had brief run of A. fib with RVR which improved with Lopressor IV, currently in sinus rhythm. 04/30: Worsening hypoxemic respiratory failure, currently on partial nonrebreather. Remains lethargic. WBC count increased from 14.6 today 20.7. Chest x-ray shows bilateral worsening infiltrates and small pleural effusions. Sodium 154, weight up by 8 KG. Albumin 1 mg Bumex 1. Also one dose of albumin. Remains in sinus tachycardia. Tmax 101.3 05/01: Patient was intubated yesterday for lack of airway protection, and severe hypoxemic respiratory failure from aspiration pneumonia involving multiple lobes. Patient is on the vent lethargic, no spontaneous eye opening. Chest x- ray remains unchanged. Remains intermittently febrile Tmax 101.3. WBC count improving 05/02: Remains critically ill with no improvement in mental status. Spiking fever of 101.7. Blood culture and sputum culture with staph aureus sputum also growing GNR, WBC count 22,000 now indicating worsening sepsis. Daughter still requesting aggressive care. Palliative care is following 05/03: S/P large area dominant hemisphere CVA. No neurological improvement. Now with pneumonia (infiltrate, fever, leukocytosis) and appropriate abx coverage. She will have a hard time surviving the hip fx, CVA, and pneumonia. Palliative Care needs to be a mainstay of our plan. 05/04: No improvement in neuro status. Sputum C&S allows us to narrow abx coverage to levaquin alone. Lungs remain quite congested. Enteral nutrition tolerated. 05/05: No improvement in neuro status. Moves left arm spontaneously. Flaccid right side. Unresponsive. Persistent mild hypoglycemia - will cut Levemir 50%. Abdomen more distended, check KUB. 05/06: CT head with massive left MCA infarction and > 1 cm shift in right handed woman. She opens eyes, does not track. 05/07: Patient open eyes. Attempts to respond. [place]er speaking. Tolerating tube feeds. Positive bowel movement. Volume overloaded. 05/08: Tmax 99.4. Potassium being replaced. Ultrasound gallbladder currently pending. Transaminases are trending downward. Gently diurese. 05/09: Alk phos decreasing. Remains with good urine output. Neurological status not improving. 05/10: Fixed neuro deficit unchanged. Profound CVA. 05/11: Appears to track with eyes today. No improvement in motor function. Remains very edematous, diuretics doubled. 05/12: Continued thick secretions. Afebrile, leukocytosis resolved. 05/13: CT head with completed left MCA stroke, persistent edema and 5 mm shift away. Does not last long on SBTs - major decision now is trach/PEG. 05/14: Daughter has decided to proceed with trach and PEG. I have been pessimistic with her about chances for a meaningful recovery. 05/15: Plan for trach today. No change in neuro status. Still ventilator dependent. 05/16: Trach completed. Await PEG and disposition. 05/17: PEG placed 05/16. Start TFs today after nutrition consult. Work to place patient. 05/18: No improvement. Does open eyes, no focus or tracking. Completed large dominant (left) hemisphere CVA in right handed woman with severe deficit. Medicaid pending status, [facility] is following. 05/19: no improvements in neuro exam. ready for LTAC. will d/c moser and rectal tubes. 05/20: no changes or improvements. very difficult placement due to patient not [place] citizen. 05/21: no improvements. resting on vent overnight due to distress. 05/22: no neurologic changes. no improvements. attempted T-piece which failed after 10 minutes. 05/23: no improvements. poor prognosis. poor neuro exam. still failing weaning trials. 05/24: no improvements or changes. still failing t-piece trials. 05/25: No acute changes of improvement overnight. Failed CPAP due to apnea, tried again currently tolerating. Neurological exam unchanged. 05/26: No improvement in neurological function. 05/27: Patient has required Moser catheter because of breakdown of skin on upper thighs and groin. Urine has become infected, will treat. 05/28: Some drainage from around trach (placed 2 weeks ago). Will change out trach tube and inspect neck wound. I&O straight cath q6h order entered 05/17. 05/29: No improvement, remains obtunded. Failed CPAP trials yesterday and again today due to apnea. Moser placed due to persistent urinary retention 05/30: Obtunded, unresponsive. Failed SBTs, remains ventilator dependent. 05/31: Patient continues to fail SBT failed yesterday due to apnea. Neuro exam remains unchanged. 06/01: No acute changes overnight, 06/02: no changes. ekg done overnight for ? EKG changes seen on telemetry which were not visualized on EKG. 06/03: no improvements or changes. had long conversation with daughter yesterday. only facility which would accept patient is in [place] and daughter is refusing to allow patient to go there because it is "too far away." Daughter continues to push for aggressive care despite no improvements, and resistant to Hospice. Patient does not need acute inpatient therapy but lacks funding for appropriate disposition. 06/04: No acute events overnight, failed SBT due to apnea. 06/05: No acute events, continues to fail spontaneous breathing trials. Unable to wean 06/06 Currently tolerating CPAP. Will attempt TP today up to 4 hours. No acute events overnight 06/07: Tolerating trach collar/T-piece. Transfer soon. 06/08: Awaiting transfer. 06/09: Remains ventilator dependent. No improvement in neurological function. 06/10: No improvement. Daughter is not attending preplanned meetings to discuss disposition 06/12: Afebrile. Neurologically stable and unchanged. Noted sodium 135. Adding sodium chloride tablets 1 today. Not on free water.. Tolerating tube feeds at goal 45 cc an hour. 06/13: No improvement in neurological function. 06/14: No improvement. Fluid balance correct. Gas exchange acceptable. 06/15: No improvement. Obtunded and unresponsive. 06/16: no improvements in mental status. KUB overnight with dilated small bowel loops. given methylnaltrexone and erythromycin. today abdomen is soft and tolerating tube feeds. 06/17: tolerated t-piece x 6 hours yesterday. rested on cpap overnight. no changes in encephalopathy. 06/18: Currently on ventilator overnight. Multiple bowel movements. Thick yellow secretions noted in ventilator circuit. Opens eyes. 06/19: Afebrile. Tolerating stretcher chair yesterday on PSV. Tolerating tube feeding. Neurologically unchanged. 06/20: Afebrile. Resting in bed in no acute distress in sitting position. Currently on ventilator set sitting. Tolerated stretcher chair/PSV trial 6 hours yesterday. Neurologically unchanged. 06/21: Tmax 100.8. Patient with copious thick yellow secretions. Tolerating tube feeds. Positive bowel movement. Lasted only 1 hour PSV yesterday Subjective 06/22: Tmax 99.9. Continues to have thick secretions. Tolerating tube feeding. Positive BM. Objective Vital Signs Date Time Temp Pulse Resp B/P (MAP) Pulse Ox O2 Delivery O2 Flow Rate FiO2 06/22/17 06:00 64 06/22/17 04:00 98.9 14 156/70 (98) 99 06/22/17 04:00 35 06/19/17 13:20 T-piece 5.00 Intake and Output 06/22/17 06/22/17 06/23/17 08:00 16:00 00:00 Intake Total 612 ml Output Total 750 ml Balance -138 ml Result Diagram: 06/22/17 0306 06/22/17 0306 Other Results Microbiology Date/Time Source Procedure Growth Status 05/08/17 04:44 Blood Peripheral Aerobic Blood Culture - Final NO GROWTH IN 5 DAYS Complete 05/08/17 04:44 Blood Peripheral Anaerobic Blood Culture - Final NO GROWTH IN 5 DAYS Complete 05/29/17 17:15 Stool Stool Stool Occult Blood (JEFFREY) - Final HEMOCCULT NEGATIVE Complete 06/18/17 10:00 Sputum Endotracheal Gram Stain - Final Resulted 06/18/17 10:00 Sputum Culture - Preliminary Serratia Marcescens Staphylococcus Species Resulted 05/25/17 15:00 Urine Catheterized Urine Urine Culture - Final Citrobacter Freundii Complete Imaging Last Impressions Chest X-Ray 06/22/17 0600 Signed Impressions: Service Date/Time: Thursday, June 22, 2017 04:47 - CONCLUSION: 1. Mild scarring with no evidence of pneumonia. Jose R Casanova MD Liver Ultrasound 06/19/17 0000 Signed Impressions: Service Date/Time: June 13:20 - CONCLUSION: 1. Mildly increased echotexture of the liver characteristic of hepatic steatosis. 2. Gallbladder sludge. Obdulio Sam MD Abdomen X-Ray 06/16/17 0000 Signed Impressions: Service Date/Time: Friday, June 16, 2017 04:48 - CONCLUSION: 1. Continued small bowel ileus. There has been no significant change when compared to the prior exam. Toy Duran MD Head CT 05/15/17 0000 Signed Impressions: Service Date/Time: May 19:59 - CONCLUSION: 1. 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 2. No bleed or new/acute infarct. Obdulio Simms MD Gall Bladder Ultrasound 05/08/17 0000 Signed Impressions: Service Date/Time: May 08:23 - CONCLUSION: Focally unremarkable appearance of the gallbladder Obdulio Chun MD Abdomen/Pelvis CT 05/07/17 0000 Signed Impressions: Service Date/Time: Sunday, May 07, 2017 13:23 - CONCLUSION: 1. Large left pneumothorax. 2. Bilateral lower lobe consolidation and bilateral moderate size pleural effusions. 3. Significant soft tissue thickening of the right lateral chest wall and left gluteus muscle. 4. Mild ascites. The findings were called to Dr. Carney. Deangelo Zamora MD Hip and Pelvis X-Ray 05/05/17 0000 Signed Impressions: Service Date/Time: Friday, May 05, 2017 10:59 - CONCLUSION: Left proximal femur trochanteric/subtrochanteric fracture lucency visualized. Postoperative changes. Choco Mustafa MD Chest CT 04/30/17 0000 Signed Impressions: Service Date/Time: Sunday, April 30, 2017 09:20 - CONCLUSION: 1. Bilateral pulmonary infiltrates more pronounced within the lower lobes with tiny bilateral pleural effusions. Material seen filling the lower lobe bronchi bilaterally either related to purulent material or perhaps mucus plugging. Deangelo Wren Jr., MD Carotid Artery Ultrasound 04/24/17 0000 Signed Impressions: Service Date/Time: April 09:45 - CONCLUSION: 1. No hemodynamically significant carotid artery stenosis. Arnie Middleton MD Hip X-Ray 04/21/17 0000 Signed Impressions: Service Date/Time: Friday, April 21, 2017 11:36 - CONCLUSION: Fluoroscopic images during placement of intramedullary siomara left femur. Benja aRmsey MD Objective Remarks Gen: 76-year-old female, resting in bed in no acute distress HEENT: mucous membranes moist. And pink. Oropharynx without erythema. No thrush. Neck: Trach site clean and dry. #8 Shiley. Supple. Resp: Transmitted upper airway sounds clear with suctioning/coughing. No wheezing Cardiovascular: RRR. S1, S2. No S4. No murmurs, no JVD. GI/abdomen: Soft, nontender, somewhat protuberant. PEG tube site is clean dry and intact. Extremities: Warm, well perfused. No rash Neuro: Eyes open with coughing. Dense right hemiplegia. Withdraws left upper extremity, Withdraws LLE. Pupils 2 mm, react bilaterally. A/P Assessment and Plan Neuro/Psych: Left MCA CVA - 5.5 mm of [id number] subfalcine herniation. right-sided hemiplegia Acute encephalopathy History CVA Continue Aspirin 325 mg by mouth daily. On admission, patient was not a candidate for thrombolysis per discussion with neurology and radiology. Repeat head CT 05/15 showed slight improvement in the midline shift now 5.5 mm and mass effect Neurosurgery consulted 04/30- Dr. López, recommended conservative management. Neurology Dr. Malave has followed Cardiovascular: Hypertension As needed Antihypertensives to keep systolic blood pressure less than to 160 mmHg (when necessary IV labetalol and IV hydralazine) Lisinopril 10 mg twice a day 05/31/17, with improved BP control. Increase to 20 twice a day 06/21 Echocardiogram 04/24 - EF 50 to 55%. Mild concentric LVH. Pulmonary: Acute hypoxic respiratory failure - aspiration possible HCAP - resolved. chronic vent dependent respiratory failure Large left pneumothorax status post #10 [place] chest tube 05/07 - resolved. Chronic respiratory failure, currently on PRVC. 14/450/35 PSV trials as tolerated and transition to T piece as able. persistent difficulty with weaning. tolerated 4 hours of t-piece yesterday. plan to continue slow weaning as able. Ventilator bundle. Ipratropium/albuterol aerosols every 6 hours with albuterol aerosols every 2 hours Chest tube d/c'd 05/12 Adding guaifenesin 400 every 8 in hypertonic saline aerosols every 6 hours 8 days for secretions GI/liver: Elevated transaminases Hypoalbuminemia Severe protein calorie malnutrition Small bowel ileus- resolving. Hepatitis C antibody positive with negative genotype/viral load Hepatic steatosis Continue PEG tube feeding with Glucerna 1.5 goal 45 cc an hour Lansoprazole 30 mg daily for GI regimen Docusate sodium 100 mg twice a day for bowel regimen and polyethylene glycol 17 g daily Erythromycin 250 mg 3 times a day for prokinetic will be discontinued today Previous CT abdomen/pelvis 05/07 - mild ascites. Large left hemothorax. Right greater than left pleural effusion. Abdominal x-ray 06/16- small bowel ileus Check liver ultrasound 06/19 revealed hepatic steatosis and gallbladder sludge Endocrine: Diabetes mellitus Detemir 10 units subcutaneous daily. SSI high dose q4h. Holding glimepiride 4 mg by mouth daily /Renal/FEN: Hyponatremia Strict intake output, monitor and replete electrolytes, follow BUN/creatinine. Moser catheter placed for urinary retention on 04/26. Moser removed 05/19 with q6h straight cath. Moser replaced again due to persistent urinary retention. Follow-up on BMP/magnesium phosphorus in a.m. 06/20 stable Heme: Chronic Rivaroxaban use Leukocytosis Normocytic anemia Thrombocytosis Follow CBC and coags. On subcutaneous enoxaparin 40 mg daily subcutaneous Hemoglobin currently stable. No indications for transfusion of blood proximally at this time ID: MSSA bacteremia - resolved. Serratia/staph aureus pneumonia - resolved. C glabrata UTI - resolved. Citrobacter UTI - resolved. Serratia/staphylococcal sputum VAP Pertinent cultures Urine culture 04/26/17 sofie glabrata Blood culture 04/29/17 1 out of 4 bottles staph aureus Sputum culture 04/30/17 MSSA and Serratia. urine 05/07-> Serratia, treated. Urine 05/25: Citrobacter Ceftriaxone started 05/26, changed to Cefepime 05/27 based on sensitivity, stopped 06/03/17 Started on piperacillin/tazobactam and vancomycin 06/21 times 8 days for VAP MSK: Left Intertroch Hip Fx s/p IMN Vitamin D deficiency Continue calcium vitamin D 250/125 one tablet 3x a day and cholecalciferol 5000 units daily. PT/OT evaluate and treat Prophylaxis: SCDs. Enoxaparin 40 mg subcutaneous daily-cleared by Dr. Malave. GI - lansoprazole 30 mg by PEG tube daily Level II follow-up Sal Carney MD Jun 22, 2017 07:43
[2017-06-22] MEDS: SODIUM CHLORIDE 0.9% FLUSH 5 ML FLUSH IV FLUSH SCH ×2 (09:00→19:54)
[2017-06-22] MEDS: POLYETHYLENE GLYCOL 17 GM PKG PO SCH (09:00)
[2017-06-22] MEDS: DOCUSATE SODIUM 100 MG/10 ML UDC PO SCH ×2 (09:00→19:50)
[2017-06-22] MEDS: ASPIRIN 325 MG TAB DOBHOFF SCH (09:54)
[2017-06-22] MEDS: ENOXAPARIN SODIUM 40 MG/0.4 ML SYRINGE SQ SCH (09:55)
[2017-06-22] MEDS: CHOLECALCIFEROL (VIT D3) 5000 UNIT CAP PO SCH (09:55)
[2017-06-22] MEDS: LISINOPRIL 10 MG TAB PO SCH ×2 (09:55→19:51)
[2017-06-22] MEDS: CALCIUM/VITAMIN D 250 MG/125 U TAB PO SCH ×3 (09:55→18:53)
[2017-06-22] MEDS: LANSOPRAZOLE SOLUTAB 30 MG TAB NG SCH (09:55)
[2017-06-22] MEDS: BENEPROTEIN POWDER 1 PACK G-TUBE SCH ×3 (09:56→18:54)
[2017-06-22] MEDS: INSULIN DETEMIR 100 UNITS/ML VIAL SQ SCH ×2 (10:02→20:20)
[2017-06-22] MEDS: hydrALAZINE HCL 20 MG/ML VIAL IV PUSH PRN (19:51)
[2017-06-22] MEDS ORDERED: PHARMACY ORDERED LAB ONE (23:45)
[2017-06-23] VITALS (18 sets, daily range): BP systolic 121–168; BP diastolic 56–72; PULSE 60–91; RESP 14; TEMP 97.9–99.2; O2SAT 96–100
[2017-06-23] MEDS: VANCOMYCIN INJ 750 MG in SODIUM CHLOR 0.9% 250 ML INJ 250 ML IV SCH (00:02)
[2017-06-23] MEDS: guaiFENesin SOLUTION 200 MG/10 ML CUP PEG SCH ×4 (00:02→20:41)
[2017-06-23] MEDS: INSULIN ASPART SUPPLEMENTAL SCALE SQ SCH ×4 (00:15→18:00)
[2017-06-23] MEDS: hydrALAZINE HCL 20 MG/ML VIAL IV PUSH PRN ×2 (00:16→06:45)
[2017-06-23] MEDS: PIPERACIL-TAZO 4.5 GM PREMIX 100 ML IV SCH ×4 (03:07→20:43)
[2017-06-23] MEDS: RESP: SODIUM CHLORIDE 3% 4 ML NEB NEB SCH ×4 (03:12→21:27)
[2017-06-23] MEDS: RESP: ALBUTEROL 2.5 MG/IPRATROPIUM 0.5 MG NEB (SCH) NEB ×4 (03:12→21:26)
[2017-06-23] MEDS: ARTIFICIAL TEARS OPTH SOLN 15 ML BTL EACH EYE SCH ×3 (05:53→22:00)
--- NOTE | 2017-06-23 06:47 | HHI.CCPN ---
Subjective Remarks/Hospital Course 04/24: 76-year-old female with a medical history significant for prior stroke, diabetes mellitus who was admitted with DKA and a hip fracture for which she underwent ORIF on 04/21. Patient developed altered mental status and was last noted to be okay around 5:30 AM. Subsequently there was a change in her mental status and she was noted to not be moving her right side for which stroke alert was called. Head CT showed large left MCA territory ischemic infarct with edema. Patient was transferred to the ICU by family medicine service in the critical care consult was requested. I evaluated the patient following arrival to the ICU. At that time she was laying in bed with her eyes open however not following commands and had a dense right hemiplegia. Patient was also evaluated by Dr. Malave from neurology. I further discussed current event with patient's daughter following her arrival to the ICU. Per the daughter patient has been living with her since her stroke in 2014 and does ambulate however has been having problems with memory and incontinence as well as gait difficulties. She does not feel patient would want intubation or tracheostomy or PEG tube. 04/25: Patient remains encephalopathic, awake though not following commands consistently. Dense right hemiplegia persists. Appears to be awake enough to protect airway currently. Patient's daughter rescinded DNR and made a full code last evening. 04/26: Remains encephalopathic, not following commands. On Dobbhoff for tube feeds at 30 cc per hour. Had urinary retention and drained 2 L of urine after placing Moser catheter today. CT head done this morning with large left MCA territory infarct with left to right midline shift and significant cerebral edema. Hyperglycemia noted. Patient given mannitol earlier for increasing cerebral edema. 04/27: Remains encephalopathic, not following commands. On Dobbhoff tube feeds at 30 cc per hour. When into A. fib with RVR last night which responded with Lopressor 5 mg IV 1 dose. 04/28: Remains encephalopathic, arousable, not following commands. Moves left upper extremity spontaneously. Tolerating Dobbhoff tube feeds. Remains on nasal cannula. 04/29: Encephalopathic, eyes be arousable, moves left upper extremity spontaneously and occasionally opens eyes. Dense right hemiplegia and aphasia persists. On nasal cannula. Dobbhoff tube feeds being advanced. Patient was transfused 1 unit PRBCs yesterday. Urine culture with yeast from yesterday for which fluconazole being started. Had brief run of A. fib with RVR which improved with Lopressor IV, currently in sinus rhythm. 04/30: Worsening hypoxemic respiratory failure, currently on partial nonrebreather. Remains lethargic. WBC count increased from 14.6 today 20.7. Chest x-ray shows bilateral worsening infiltrates and small pleural effusions. Sodium 154, weight up by 8 KG. Albumin 1 mg Bumex 1. Also one dose of albumin. Remains in sinus tachycardia. Tmax 101.3 05/01: Patient was intubated yesterday for lack of airway protection, and severe hypoxemic respiratory failure from aspiration pneumonia involving multiple lobes. Patient is on the vent lethargic, no spontaneous eye opening. Chest x- ray remains unchanged. Remains intermittently febrile Tmax 101.3. WBC count improving 05/02: Remains critically ill with no improvement in mental status. Spiking fever of 101.7. Blood culture and sputum culture with staph aureus sputum also growing GNR, WBC count 22,000 now indicating worsening sepsis. Daughter still requesting aggressive care. Palliative care is following 05/03: S/P large area dominant hemisphere CVA. No neurological improvement. Now with pneumonia (infiltrate, fever, leukocytosis) and appropriate abx coverage. She will have a hard time surviving the hip fx, CVA, and pneumonia. Palliative Care needs to be a mainstay of our plan. 05/04: No improvement in neuro status. Sputum C&S allows us to narrow abx coverage to levaquin alone. Lungs remain quite congested. Enteral nutrition tolerated. 05/05: No improvement in neuro status. Moves left arm spontaneously. Flaccid right side. Unresponsive. Persistent mild hypoglycemia - will cut Levemir 50%. Abdomen more distended, check KUB. 05/06: CT head with massive left MCA infarction and > 1 cm shift in right handed woman. She opens eyes, does not track. 05/07: Patient open eyes. Attempts to respond. [place] speaking. Tolerating tube feeds. Positive bowel movement. Volume overloaded. 05/08: Tmax 99.4. Potassium being replaced. Ultrasound gallbladder currently pending. Transaminases are trending downward. Gently diurese. 05/09: Alk phos decreasing. Remains with good urine output. Neurological status not improving. 05/10: Fixed neuro deficit unchanged. Profound CVA. 05/11: Appears to track with eyes today. No improvement in motor function. Remains very edematous, diuretics doubled. 05/12: Continued thick secretions. Afebrile, leukocytosis resolved. 05/13: CT head with completed left MCA stroke, persistent edema and 5 mm shift away. Does not last long on SBTs - major decision now is trach/PEG. 05/14: Daughter has decided to proceed with trach and PEG. I have been pessimistic with her about chances for a meaningful recovery. 05/15: Plan for trach today. No change in neuro status. Still ventilator dependent. 05/16: Trach completed. Await PEG and disposition. 05/17: PEG placed 05/16. Start TFs today after nutrition consult. Work to place patient. 05/18: No improvement. Does open eyes, no focus or tracking. Completed large dominant (left) hemisphere CVA in right handed woman with severe deficit. Medicaid pending status, [facility] is following. 05/19: no improvements in neuro exam. ready for LTAC. will d/c moser and rectal tubes. 05/20: no changes or improvements. very difficult placement due to patient not [place] citizen. 05/21: no improvements. resting on vent overnight due to distress. 05/22: no neurologic changes. no improvements. attempted T-piece which failed after 10 minutes. 05/23: no improvements. poor prognosis. poor neuro exam. still failing weaning trials. 05/24: no improvements or changes. still failing t-piece trials. 05/25: No acute changes of improvement overnight. Failed CPAP due to apnea, tried again currently tolerating. Neurological exam unchanged. 05/26: No improvement in neurological function. 05/27: Patient has required Moser catheter because of breakdown of skin on upper thighs and groin. Urine has become infected, will treat. 05/28: Some drainage from around trach (placed 2 weeks ago). Will change out trach tube and inspect neck wound. I&O straight cath q6h order entered 05/17. 05/29: No improvement, remains obtunded. Failed CPAP trials yesterday and again today due to apnea. Moser placed due to persistent urinary retention 05/30: Obtunded, unresponsive. Failed SBTs, remains ventilator dependent. 05/31: Patient continues to fail SBT failed yesterday due to apnea. Neuro exam remains unchanged. 06/01: No acute changes overnight, 06/02: no changes. ekg done overnight for ? EKG changes seen on telemetry which were not visualized on EKG. 06/03: no improvements or changes. had long conversation with daughter yesterday. only facility which would accept patient is in [place] and daughter is refusing to allow patient to go there because it is "too far away." Daughter continues to push for aggressive care despite no improvements, and resistant to Hospice. Patient does not need acute inpatient therapy but lacks funding for appropriate disposition. 06/04: No acute events overnight, failed SBT due to apnea. 06/05: No acute events, continues to fail spontaneous breathing trials. Unable to wean 06/06 Currently tolerating CPAP. Will attempt TP today up to 4 hours. No acute events overnight 06/07: Tolerating trach collar/T-piece. Transfer soon. 06/08: Awaiting transfer. 06/09: Remains ventilator dependent. No improvement in neurological function. 06/10: No improvement. Daughter is not attending preplanned meetings to discuss disposition 06/12: Afebrile. Neurologically stable and unchanged. Noted sodium 135. Adding sodium chloride tablets 1 today. Not on free water.. Tolerating tube feeds at goal 45 cc an hour. 06/13: No improvement in neurological function. 06/14: No improvement. Fluid balance correct. Gas exchange acceptable. 06/15: No improvement. Obtunded and unresponsive. 06/16: no improvements in mental status. KUB overnight with dilated small bowel loops. given methylnaltrexone and erythromycin. today abdomen is soft and tolerating tube feeds. 06/17: tolerated t-piece x 6 hours yesterday. rested on cpap overnight. no changes in encephalopathy. 06/18: Currently on ventilator overnight. Multiple bowel movements. Thick yellow secretions noted in ventilator circuit. Opens eyes. 06/19: Afebrile. Tolerating stretcher chair yesterday on PSV. Tolerating tube feeding. Neurologically unchanged. 06/20: Afebrile. Resting in bed in no acute distress in sitting position. Currently on ventilator set sitting. Tolerated stretcher chair/PSV trial 6 hours yesterday. Neurologically unchanged. 06/21: Tmax 100.8. Patient with copious thick yellow secretions. Tolerating tube feeds. Positive bowel movement. Lasted only 1 hour PSV yesterday 06/22: Tmax 99.9. Continues to have thick secretions. Tolerating tube feeding. Positive BM. Subjective 06/23: Afebrile. Continues to have thick tracheal secretions from tracheostomy site. Tolerating tube feeding. 3 bowels movements. Opens eyes to stimulation. Stares at you but does not follow commands. Objective Vital Signs Date Time Temp Pulse Resp B/P (MAP) Pulse Ox O2 Delivery O2 Flow Rate FiO2 06/23/17 06:00 72 06/23/17 04:00 35 06/23/17 04:00 98.1 14 158/68 (98) 99 06/19/17 13:20 T-piece 5.00 Intake and Output 06/23/17 06/23/17 06/24/17 08:00 16:00 00:00 Intake Total 939 ml Output Total 700 ml Balance 239 ml Result Diagram: 06/22/17 0306 06/22/17 0306 Other Results Microbiology Date/Time Source Procedure Growth Status 05/08/17 04:44 Blood Peripheral Aerobic Blood Culture - Final NO GROWTH IN 5 DAYS Complete 05/08/17 04:44 Blood Peripheral Anaerobic Blood Culture - Final NO GROWTH IN 5 DAYS Complete 05/29/17 17:15 Stool Stool Stool Occult Blood (JEFFREY) - Final HEMOCCULT NEGATIVE Complete 06/18/17 10:00 Sputum Endotracheal Gram Stain - Final Complete 06/18/17 10:00 Sputum Culture - Final Serratia Marcescens Staphylococcus Aureus Complete 05/25/17 15:00 Urine Catheterized Urine Urine Culture - Final Citrobacter Freundii Complete Imaging Last Impressions Chest X-Ray 06/22/17 0600 Signed Impressions: Service Date/Time: Thursday, June 22, 2017 04:47 - CONCLUSION: 1. Mild scarring with no evidence of pneumonia. Jose R Casanova MD Liver Ultrasound 06/19/17 0000 Signed Impressions: Service Date/Time: June 13:20 - CONCLUSION: 1. Mildly increased echotexture of the liver characteristic of hepatic steatosis. 2. Gallbladder sludge. Obdulio Sam MD Abdomen X-Ray 06/16/17 0000 Signed Impressions: Service Date/Time: Friday, June 16, 2017 04:48 - CONCLUSION: 1. Continued small bowel ileus. There has been no significant change when compared to the prior exam. Toy Duran MD Head CT 05/15/17 0000 Signed Impressions: Service Date/Time: May 19:59 - CONCLUSION: 1. 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 2. No bleed or new/acute infarct. Obdulio Simms MD Gall Bladder Ultrasound 05/08/17 0000 Signed Impressions: Service Date/Time: May 08:23 - CONCLUSION: Focally unremarkable appearance of the gallbladder Obdulio Chun MD Abdomen/Pelvis CT 05/07/17 0000 Signed Impressions: Service Date/Time: Sunday, May 07, 2017 13:23 - CONCLUSION: 1. Large left pneumothorax. 2. Bilateral lower lobe consolidation and bilateral moderate size pleural effusions. 3. Significant soft tissue thickening of the right lateral chest wall and left gluteus muscle. 4. Mild ascites. The findings were called to Dr. Carney. Deangelo Zamora MD Hip and Pelvis X-Ray 05/05/17 0000 Signed Impressions: Service Date/Time: Friday, May 05, 2017 10:59 - CONCLUSION: Left proximal femur trochanteric/subtrochanteric fracture lucency visualized. Postoperative changes. Choco Mustafa MD Chest CT 04/30/17 0000 Signed Impressions: Service Date/Time: Sunday, April 30, 2017 09:20 - CONCLUSION: 1. Bilateral pulmonary infiltrates more pronounced within the lower lobes with tiny bilateral pleural effusions. Material seen filling the lower lobe bronchi bilaterally either related to purulent material or perhaps mucus plugging. Deangelo Wren Jr., MD Carotid Artery Ultrasound 04/24/17 0000 Signed Impressions: Service Date/Time: April 09:45 - CONCLUSION: 1. No hemodynamically significant carotid artery stenosis. Arnie Middleton MD Hip X-Ray 04/21/17 0000 Signed Impressions: Service Date/Time: Friday, April 21, 2017 11:36 - CONCLUSION: Fluoroscopic images during placement of intramedullary siomara left femur. Benja Ramsey MD Objective Remarks Gen: 76-year-old female, resting in bed in no acute distress HEENT: mucous membranes moist. And pink. Oropharynx without erythema. No thrush. Neck: Trach site clean and dry. #8 [place]iley. Supple. Resp: Transmitted upper airway sounds clear with suctioning/coughing. No wheezing Cardiovascular: RRR. S1, S2. No S4. No murmurs, no JVD. GI/abdomen: Soft, nontender, somewhat protuberant. PEG tube site is clean dry and intact. Extremities: Warm, well perfused. No rash Neuro: Eyes open with coughing. Dense right hemiplegia. Withdraws left upper extremity, Withdraws LLE. Pupils 2 mm, react bilaterally. A/P Assessment and Plan Neuro/Psych: Left MCA CVA - 5.5 mm of [id number] subfalcine herniation. right-sided hemiplegia Acute encephalopathy History CVA Continue Aspirin 325 mg by mouth daily. On admission, patient was not a candidate for thrombolysis per discussion with neurology and radiology. Repeat head CT 05/15 showed slight improvement in the midline shift now 5.5 mm and mass effect Neurosurgery consulted 04/30- Dr. López, recommended conservative management. Neurology Dr. Malave has followed Cardiovascular: Hypertension As needed Antihypertensives to keep systolic blood pressure less than to 160 mmHg (when necessary IV labetalol and IV hydralazine) Lisinopril 10 mg twice a day 05/31/17, with improved BP control. Increase to 20 20 mg twice a day 06/21 Echocardiogram 04/24 - EF 50 to 55%. Mild concentric LVH. Pulmonary: Acute hypoxic respiratory failure - aspiration possible HCAP - resolved. chronic vent dependent respiratory failure Large left pneumothorax status post #10 [place] chest tube 05/07 - resolved. Chronic respiratory failure, currently on PRVC. 14/450/1/5/35 PSV trials as tolerated and transition to T piece as able. persistent difficulty with weaning. tolerated 4 hours of t-piece yesterday. plan to continue slow weaning as able. Ventilator bundle. Ipratropium/albuterol aerosols every 6 hours with albuterol aerosols every 2 hours Chest tube d/c'd 05/12 Adding guaifenesin 400 every 8 hours and 3% hypertonic saline aerosols every 6 hours 8 days for secretions on 06/21 GI/liver: Elevated transaminases Hypoalbuminemia Severe protein calorie malnutrition Small bowel ileus- resolving. Hepatitis C antibody positive with negative genotype/viral load Hepatic steatosis Continue PEG tube feeding with Glucerna 1.5 goal 45 cc an hour Lansoprazole 30 mg daily for GI regimen Docusate sodium 100 mg twice a day for bowel regimen and polyethylene glycol 17 g twice daily Erythromycin 250 mg 3 times a day for prokinetic will be discontinued 06/[address] abdomen/pelvis 05/07 - mild ascites. Large left hemothorax. Right greater than left pleural effusion. Abdominal x-ray 06/16- small bowel ileus Check liver ultrasound 06/19 revealed hepatic steatosis and gallbladder sludge Endocrine: Diabetes mellitus Detemir 10 units subcutaneous daily. SSI high dose q4h. Holding glimepiride 4 mg by mouth daily /Renal/FEN: Hyponatremia Strict intake output, monitor and replete electrolytes, follow BUN/creatinine. Moser catheter placed for urinary retention on 04/26. Moser removed 05/19 with q6h straight cath. Moser replaced again due to persistent urinary retention. Follow-up on BMP/magnesium phosphorus in a.m. 06/20 stable Heme: Chronic Rivaroxaban use Leukocytosis Normocytic anemia Thrombocytosis Follow CBC and coags. On subcutaneous enoxaparin 40 mg daily subcutaneous Hemoglobin currently stable. No indications for transfusion of blood proximally at this time ID: MSSA bacteremia - resolved. Serratia/staph aureus pneumonia - resolved. C glabrata UTI - resolved. Citrobacter UTI - resolved. Serratia/MSSA sputum VAP Pertinent cultures Urine culture 04/26/17 sofie glabrata Blood culture 04/29/17 1 out of 4 bottles staph aureus Sputum culture 04/30/17 MSSA and Serratia. urine 05/07-> Serratia, treated. Urine 05/25: Citrobacter Ceftriaxone started 05/26, changed to Cefepime 05/27 based on sensitivity, stopped 06/03/17 Started on piperacillin/tazobactam and vancomycin 06/21 times 8 days for VAP. Vancomycin discontinued 06/23 MSK: Left Intertroch Hip Fx s/p IMN Vitamin D deficiency Continue calcium vitamin D 250/125 one tablet 3x a day and cholecalciferol 5000 units daily. PT/OT evaluate and treat Prophylaxis: SCDs. Enoxaparin 40 mg subcutaneous daily-cleared by Dr. Malave. GI - lansoprazole 30 mg by PEG tube daily Level II follow-up Sal Carney MD Jun 23, 2017 06:47
[2017-06-23] MEDS: BENEPROTEIN POWDER 1 PACK G-TUBE SCH ×3 (09:00→18:00)
[2017-06-23] MEDS: POLYETHYLENE GLYCOL 17 GM PKG PEG SCH ×2 (09:00→20:43)
[2017-06-23] MEDS: SODIUM CHLORIDE 0.9% FLUSH 5 ML FLUSH IV FLUSH SCH ×2 (09:00→20:43)
[2017-06-23] MEDS: DOCUSATE SODIUM 100 MG/10 ML UDC PO SCH ×2 (09:00→20:41)
[2017-06-23] MEDS: ENOXAPARIN SODIUM 40 MG/0.4 ML SYRINGE SQ SCH (09:59)
[2017-06-23] MEDS: LANSOPRAZOLE SOLUTAB 30 MG TAB NG SCH (10:00)
[2017-06-23] MEDS: ASPIRIN 325 MG TAB DOBHOFF SCH (10:00)
[2017-06-23] MEDS: LISINOPRIL 10 MG TAB PO SCH ×2 (10:00→20:42)
[2017-06-23] MEDS: CALCIUM/VITAMIN D 250 MG/125 U TAB PO SCH ×3 (10:00→19:24)
[2017-06-23] MEDS: CHOLECALCIFEROL (VIT D3) 5000 UNIT CAP PO SCH (10:00)
[2017-06-23] MEDS: INSULIN DETEMIR 100 UNITS/ML VIAL SQ SCH ×2 (10:02→20:42)
[2017-06-23] MEDS ORDERED: PHARMACY ORDERED LAB ONE (11:45)
--- NOTE | 2017-06-23 17:18 | HHI.HCPN ---
Reason for visit a. To assist with evaluation and management of symptoms including: Debility and pain. b. To assist medical decision maker(s) with: better understanding of current medical conditions; weighing benefits/burdens of medical treatment options; making medical treatment decisions. . Subjective/Interval History Mrs. Hein is a 76-year-old female with a past medical history of hypertension, diabetes mellitus and CVA who presented to the ED on 04/20/17 via EMS for evaluation of after a fall. Upon ED admission, random glucose 559. Patient underwent Left hip reduction and intramedullary nail fixation on 04/21/17. Clinical course complicated by large left MCA infarct with diffuse edema throughout the left MCA distribution. Neurology, Dr. Malave consulted. Patient not a candidate for intervention, not a candidate for IV TPA. As per neurology "Christina 4Id the prognosis with a stroke of the size is poor". Palliative care consulted for further clarifications of goals of care given poor prognosis. Interval course: Patient remains on ventilator support via tracheostomy, ongoing daily CPAP trials. Currently at 45% FiO2. Most recent chest x-ray with no evidence of pneumonia. No improvement in neurological status. Patient observed with eyes open, not tracking or following any commands. Squeezing left hand but not to command. Patient remains afebrile, stable hemodynamically. Most recent laboratory data 06/22/17 revealing WBC 10.7, Hgb stable at 9.0, platelet count 31. Abdomen x-ray 06/16/17 revealing small bowel ileus. Increased liver enzymes, most recent on 06/22/17 AST 43, ALT 75, alkaline phosphatase 981. Liver ultrasound 06/19/17 revealing hepatic steatosis and gallbladder sludge. Sputum culture 06/18/17 positive for Serratia marcescens and Staph Aureus. Patient currently on Zosyn. Case discussed with bedside RN. . Family/friend interactions Telephone call to patient's daughter Norma. No answer, left message in voicemail. Palliative care has made many attempts at contacting patient's daughter for further clarifications of goals of care to no avail. . Advance Directives Living Will: Never completed Health Care Surrogate: Never completed Durable Power of Rose Grower: Never completed Advance Directive Specifics Health Care Surrogate(s): No advance directives completed. As per [place] statute, healthcare proxy decision making falls to patient's only daughter Norma Salvador. . Documented care wishes: No living will completed. . Significant change in goals: Goals of care remain unchanged. . Objective Vital Signs Date Time Temp Pulse Resp B/P (MAP) Pulse Ox O2 Delivery O2 Flow Rate FiO2 06/23/17 16:24 98 35 06/23/17 12:00 35 06/23/17 11:18 97 35 06/23/17 10:00 84 06/23/17 08:00 35 06/23/17 08:00 91 06/23/17 08:00 98.9 91 14 168/72 (104) 96 06/23/17 07:53 100 35 06/23/17 06:00 72 06/23/17 04:00 35 06/23/17 04:00 98.1 73 14 158/68 (98) 99 06/23/17 04:00 73 06/23/17 03:12 100 35 06/23/17 02:00 67 06/23/17 00:24 99 35 06/23/17 00:00 65 06/23/17 00:00 35 06/23/17 00:00 97.9 65 14 149/65 (93) 99 06/22/17 22:00 60 06/22/17 20:00 35 06/22/17 20:00 97.9 69 14 166/79 (108) 98 06/22/17 20:00 68 06/22/17 19:42 99 35 06/22/17 18:00 69 Intake & Output 06/23/17 06/23/17 07:00 19:00 Intake Total 1189 ml 98 ml Output Total 700 ml Balance 489 ml 98 ml IV Total 250 ml 98 ml Tube Feeding 539 ml Other 400 ml Output Urine Total 650 ml Stool Total 50 ml Physical Exam CONSTITUTIONAL/GENERAL: This is an elderly female resting in bed in no acute distress. TUBES/LINES/DRAINS: PIV's. Tracheostomy, PEG tube, left soft wrist restraint. SKIN: No jaundice, rashes, or lesions. Ecchymoses on upper extremities. Skin temperature appropriate. Not diaphoretic. NECK: Trachea midline. Supple. Tracheostomy in place. CARDIOVASCULAR: Regular rate and rhythm. Peripheral pulses symmetric. RESPIRATORY/CHEST: Symmetric, tracheostomy. Coarse breath sounds bilaterally, right more than left. GASTROINTESTINAL: Abdomen soft, round, mildly distended. Bowel sounds present. PEG tube in place. GENITOURINARY: Without palpable bladder distension. Leavitt inserted for skin protection. MUSCULOSKELETAL: Extremities without clubbing, cyanosis. NEUROLOGICAL: Withdraws with LUE and LLE. Flaccid to right side. Not sedated. Eyes opening spontaneously, not to command, not tracking. PSYCHIATRIC: Unable to evaluate secondary to clinical condition. Appears calm. . Diagnostic Tests Laboratory Laboratory Tests Test 06/22/17 03:06 White Blood Count 10.7 TH/MM3 (4.0-11.0) Red Blood Count 2.88 MIL/MM3 (4.00-5.30) Hemoglobin 9.0 GM/DL (11.6-15.3) Hematocrit 27.5 % (35.0-46.0) Mean Corpuscular Volume 95.6 FL (80.0-100.0) Mean Corpuscular Hemoglobin 31.3 PG (27.0-34.0) Mean Corpuscular Hemoglobin Concent 32.8 % (32.0-36.0) Red Cell Distribution Width 17.2 % (11.6-17.2) Platelet Count 301 TH/MM3 (150-450) Mean Platelet Volume 9.1 FL (7.0-11.0) Neutrophils (%) (Auto) 70.5 % (16.0-70.0) Lymphocytes (%) (Auto) 18.3 % (9.0-44.0) Monocytes (%) (Auto) 6.4 % (0.0-8.0) Eosinophils (%) (Auto) 3.6 % (0.0-4.0) Basophils (%) (Auto) 1.2 % (0.0-2.0) Neutrophils # (Auto) 7.6 TH/MM3 (1.8-7.7) Lymphocytes # (Auto) 2.0 TH/MM3 (1.0-4.8) Monocytes # (Auto) 0.7 TH/MM3 (0-0.9) Eosinophils # (Auto) 0.4 TH/MM3 (0-0.4) Basophils # (Auto) 0.1 TH/MM3 (0-0.2) CBC Comment DIFF FINAL Differential Comment Blood Urea Nitrogen 38 MG/DL (7-18) Creatinine 0.30 MG/DL (0.50-1.00) Random Glucose 109 MG/DL (74-106) Total Protein 6.4 GM/DL (6.4-8.2) Albumin 2.2 GM/DL (3.4-5.0) Calcium Level 8.3 MG/DL (8.5-10.1) Phosphorus Level 2.8 MG/DL (2.5-4.9) Magnesium Level 2.1 MG/DL (1.5-2.5) Alkaline Phosphatase 981 U/L (45-117) Aspartate Amino Transf (AST/SGOT) 43 U/L (15-37) Alanine Aminotransferase (ALT/SGPT) 75 U/L (10-53) Total Bilirubin 0.3 MG/DL (0.2-1.0) Sodium Level 143 MEQ/L (136-145) Potassium Level 3.8 MEQ/L (3.5-5.1) Chloride Level 111 MEQ/L (98-107) Carbon Dioxide Level 26.3 MEQ/L (21.0-32.0) Anion Gap 6 MEQ/L (5-15) Estimat Glomerular Filtration Rate 217 ML/MIN (>89) Result Diagram: 06/22/17 0306 06/22/17 0306 Procedures * 05/16/17 -PEG tube placement * 05/15/17 -tracheostomy placement * 05/08/17 -left-sided chest tube/pigtail * 04/30/17 -endotracheal intubation * 04/21/17 -Left hip reduction and intramedullary nail fixation . Assessment and Plan Disease Oriented Problem List: (1) Acute respiratory failure (2) Acute CVA (cerebrovascular accident) (3) Pneumonia (4) Atrial fibrillation with RVR (5) Hypertension (6) Hip fracture Symptom Scale: (1) Shortness of breath 0-10 Scale: Unable to quantify Comment: Currently trached on mechanical ventilation. Failing SBT due to apnea. (2) Debility 0-10 Scale: Unable to quantify Comment: Progressive. (3) Pain 0-10 Scale: Unable to quantify Comment: Secondary to recent surgical intervention Pertinent Non-Medical Issues Psychosocial: Patient is originally from [place]. Residing in [place] up until 2013 she moved to [place] to live with only daughter Trice. Patient is a , in 2006. Spiritual: No buddhism affiliation. Legal: No advance directives completed. Ethical issues impacting care: Patient unable to participating in medical decision-making secondary to clinical condition. Patient's daughter acting as healthcare proxy decision maker. . Important Contacts Daughter Norma Salvador . . Prognosis Mrs. Hein needs a 76-year-old female with a past medical history of hypertension, diabetes mellitus and prior CVA. Presented with left hip fracture , underwent ORIF. Clinical course complicated by large left MCA infarct with edema. Overall prognosis is poor for a meaningful neurological recovery or long -term survival given acute stroke, chronic ongoing comorbidities and advanced age. Patient appears hospice appropriate should family elects comfort-directed care. . Code Status: Full Code Plan * CODE STATUS: FULL CODE. Risks, benefits and limitations of CPR given patient' s clinical condition and poor prognosis has been discussed in multiple occasions with patient's daughter Trice. * HEALTHCARE DECISION-MAKING: Patient not capacitated for medical decision- making given severe large stroke, not expected to regain capacity. No advance directives completed, patient is . As per [place] statute, healthcare proxy decision-making falls to patient's only daughter Trice Salvador. * GOALS OF CARE: 06/23/17 -Palliative care has made many attempts at contacting patient's daughter for further clarifications of goals of care to no avail. Patient's daughter acting as HCP has previously elected to continue aggressive management to include full code. Difficult disposition, long-term plans for this patient are impacted by her psychosocial situation, no coverage/no payer source for long-term placement or rehab. * SYMPTOMS: = Shortness of breath, multifactorial. Secondary to altered mental status/CVA, pneumonia, lethargy. Now trached and on mechanical ventilation. Patient failing SBT due to apnea. = Pain, secondary to recent surgical intervention. = Debility, progressive. Likely to continue to worsen given recent acute stroke and additional complications. * Case discussed with bedside RN. * Palliative care contact information has been provided to patient's daughter. * Palliative care will continue to follow-up as needed for further clarifications of goals of care as patient's clinical condition continues to evolve. . Time Spent Total Floor Time (mins): 26 (Total time to include review medical records, physical exam, telephone call to patient's daughter, case discussion with bedside RN.) >50% Counseling/Coord of Care: Yes Attestation To help prompt me to consider important information that might be impacting today's encounter and assessment, information from prior notes written by myself or my colleagues may have been "brought forward" into today's note. My signature on this note, however, is an attestation that I personally performed the exam, history, and/or decision-making noted today, and, unless otherwise indicated, the interactions with patient, family, and staff as well as the review of records all occurred today. I also attest that the listed assessment and stated plan reflect my best clinical judgment today based on the combination of historical information, prior notes, and today's exam/ interactions. When time spent is documented, it refers only to time spent today by the signer, or if indicated, combined time spent today by collaborating physician/nurse practitioner. Ashly Steven Jun 23, 2017 17:17
[2017-06-24] VITALS (18 sets, daily range): BP systolic 118–180; BP diastolic 58–92; PULSE 60–95; RESP 14–25; TEMP 97.8–98.5; O2SAT 94–100
[2017-06-24] MEDS: RESP: SODIUM CHLORIDE 3% 4 ML NEB NEB SCH ×4 (03:19→19:41)
[2017-06-24] MEDS: RESP: ALBUTEROL 2.5 MG/IPRATROPIUM 0.5 MG NEB (SCH) NEB ×2 (03:19→08:30)
[2017-06-24] MEDS: PIPERACIL-TAZO 4.5 GM PREMIX 100 ML IV SCH ×4 (03:31→21:44)
[2017-06-24] MEDS: ARTIFICIAL TEARS OPTH SOLN 15 ML BTL EACH EYE SCH ×3 (06:00→21:46)
[2017-06-24] MEDS: guaiFENesin SOLUTION 200 MG/10 ML CUP PEG SCH ×3 (06:00→21:46)
[2017-06-24] MEDS: INSULIN ASPART SUPPLEMENTAL SCALE SQ SCH ×4 (06:00→17:51)
--- NOTE | 2017-06-24 06:35 | RADRPT ---
EXAM DATE/TIME: 06/24/2017 06:00 [facility] COMPARISON: CHEST SINGLE AP, June 22, 2017, 4:47. INDICATIONS : Respiratory failure. MEDICAL HISTORY : Congestive heart failure. Cerebrovascular disease. Hypertension. SURGICAL HISTORY : None. ENCOUNTER: Subsequent ACUITY: 1 week PAIN SCORE: Non-responsive. LOCATION: Bilateral chest FINDINGS: A single view of the chest demonstrates bilateral patchy opacities greater in the right upper lobe an d both lower lobes. Heart normal size. Tracheostomy tube unchanged. Osseous structures are intact. CONCLUSION: Bilateral patchy infiltrates slightly worsened. Benja Ramsey MD on June 24, 2017 at 6:33 Board Certified Radiologist. This report was verified electronically.
[2017-06-24 07:27] LABS: AUTOMATED NEUTROPHIL # 8.4 TH/MM3 (1.8-7.7); BASOPHIL # 0.1 TH/MM3 (0-0.2); EOSINOPHIL # 0.3 TH/MM3 (0-0.4); HEMOGLOBIN 9.5 GM/DL (11.6-15.3); LYMPH % 14.6 % (9.0-44.0); LYMPHOCYTE # 1.6 TH/MM3 (1.0-4.8); MEAN CELL VOLUME 94.9 FL (80.0-100.0); MEAN CORPUSCULAR HEMOGLOBIN 31.2 PG (27.0-34.0); MEAN CORPUSCULAR HGB CONC 32.9 % (32.0-36.0); MEAN PLATELET VOLUME 9.7 FL (7.0-11.0); MONO % 5.1 % (0.0-8.0); MONOCYTE # 0.6 TH/MM3 (0-0.9); NEUT % 76.3 % (16.0-70.0); PLATELET COUNT 309 TH/MM3 (150-450); RED BLOOD COUNT 3.06 MIL/MM3 (4.00-5.30); RED CELL DISTRIBUTION WIDTH 16.6 % (11.6-17.2)
[2017-06-24 07:43] LABS: ALBUMIN 2.3 GM/DL (3.4-5.0); AST (GOT) 70 U/L (15-37); BICARBONATE 26.8 MEQ/L (21.0-32.0); BLOOD UREA NITROGEN 40 MG/DL (7-18); CALCIUM 8.5 MG/DL (8.5-10.1); CHLORIDE 108 MEQ/L (98-107); CREATININE 0.38 MG/DL (0.50-1.00); GLOMERULAR FILTRATION RATE 166 ML/MIN (>89); GLUCOSE,RANDOM 81 MG/DL (74-106); MAGNESIUM 2.3 MG/DL (1.5-2.5); PHOSPHORUS 2.8 MG/DL (2.5-4.9); SODIUM (NA) 141 MEQ/L (136-145)
[2017-06-24 07:59] LABS: ALKALINE PHOSPHATASE 1004 U/L (45-117); ALT (GPT) 77 U/L (10-53); TOTAL BILIRUBIN ADULT 0.3 MG/DL (0.2-1.0); TOTAL PROTEIN 6.9 GM/DL (6.4-8.2)
[2017-06-24] MEDS: INSULIN DETEMIR 100 UNITS/ML VIAL SQ SCH ×2 (09:00→21:44)
[2017-06-24] MEDS: SODIUM CHLORIDE 0.9% FLUSH 5 ML FLUSH IV FLUSH SCH ×2 (09:00→21:00)
[2017-06-24] MEDS: POLYETHYLENE GLYCOL 17 GM PKG PEG SCH ×2 (09:00→21:00)
[2017-06-24] MEDS: DOCUSATE SODIUM 100 MG/10 ML UDC PO SCH ×2 (09:00→21:00)
[2017-06-24] MEDS: BENEPROTEIN POWDER 1 PACK G-TUBE SCH ×3 (09:00→17:50)
[2017-06-24] MEDS: LISINOPRIL 10 MG TAB PO SCH ×2 (09:16→21:44)
[2017-06-24] MEDS: ASPIRIN 325 MG TAB DOBHOFF SCH (09:16)
[2017-06-24] MEDS: CHOLECALCIFEROL (VIT D3) 5000 UNIT CAP PO SCH (09:17)
[2017-06-24] MEDS: CALCIUM/VITAMIN D 250 MG/125 U TAB PO SCH ×3 (09:17→17:51)
[2017-06-24] MEDS: ENOXAPARIN SODIUM 40 MG/0.4 ML SYRINGE SQ SCH (09:18)
[2017-06-24] MEDS: LANSOPRAZOLE SOLUTAB 30 MG TAB NG SCH (09:23)
[2017-06-24] MEDS: RESP: ALBUTEROL 2.5 MG/3 ML NEB (PRN) NEB ×2 (15:44→19:41)
[2017-06-25] VITALS (18 sets, daily range): BP systolic 149–181; BP diastolic 66–79; PULSE 71–99; RESP 15–28; TEMP 97.7–99.2; O2SAT 95–100
[2017-06-25] MEDS: INSULIN ASPART SUPPLEMENTAL SCALE SQ SCH ×4 (00:47→17:45)
[2017-06-25] MEDS: hydrALAZINE HCL 20 MG/ML VIAL IV PUSH PRN ×2 (01:06→03:06)
[2017-06-25] MEDS: PIPERACIL-TAZO 4.5 GM PREMIX 100 ML IV SCH ×4 (03:07→21:36)
[2017-06-25] MEDS: RESP: ALBUTEROL 2.5 MG/3 ML NEB (PRN) NEB ×2 (03:20→20:07)
[2017-06-25] MEDS: RESP: SODIUM CHLORIDE 3% 4 ML NEB NEB SCH ×4 (03:20→20:07)
[2017-06-25] MEDS: guaiFENesin SOLUTION 200 MG/10 ML CUP PEG SCH ×3 (05:43→21:36)
[2017-06-25] MEDS: ARTIFICIAL TEARS OPTH SOLN 15 ML BTL EACH EYE SCH ×3 (05:44→21:37)
[2017-06-25] MEDS: CALCIUM/VITAMIN D 250 MG/125 U TAB PO SCH ×3 (08:45→17:45)
[2017-06-25] MEDS: LISINOPRIL 10 MG TAB PO SCH ×2 (08:45→21:36)
[2017-06-25] MEDS: CHOLECALCIFEROL (VIT D3) 5000 UNIT CAP PO SCH (08:45)
[2017-06-25] MEDS: ENOXAPARIN SODIUM 40 MG/0.4 ML SYRINGE SQ SCH (08:45)
[2017-06-25] MEDS: BENEPROTEIN POWDER 1 PACK G-TUBE SCH ×3 (08:46→17:45)
[2017-06-25] MEDS: SODIUM CHLORIDE 0.9% FLUSH 5 ML FLUSH IV FLUSH SCH ×2 (08:46→21:37)
[2017-06-25] MEDS: ASPIRIN 325 MG TAB DOBHOFF SCH (08:46)
[2017-06-25] MEDS: POLYETHYLENE GLYCOL 17 GM PKG PEG SCH ×2 (08:46→21:37)
[2017-06-25] MEDS: LANSOPRAZOLE SOLUTAB 30 MG TAB NG SCH (08:46)
[2017-06-25] MEDS: INSULIN DETEMIR 100 UNITS/ML VIAL SQ SCH ×2 (08:47→21:37)
[2017-06-25] MEDS: DOCUSATE SODIUM 100 MG/10 ML UDC PO SCH ×2 (08:47→21:36)
[2017-06-26] VITALS (20 sets, daily range): BP systolic 109–174; BP diastolic 54–75; PULSE 64–89; RESP 14–29; TEMP 97.8–99.5; O2SAT 93–100
[2017-06-26] MEDS: INSULIN ASPART SUPPLEMENTAL SCALE SQ SCH ×4 (00:52→18:00)
[2017-06-26] MEDS: RESP: SODIUM CHLORIDE 3% 4 ML NEB NEB SCH ×4 (03:35→21:31)
[2017-06-26] MEDS: RESP: ALBUTEROL 2.5 MG/3 ML NEB (PRN) NEB (03:35)
[2017-06-26] MEDS: PIPERACIL-TAZO 4.5 GM PREMIX 100 ML IV SCH ×4 (03:59→21:00)
[2017-06-26] MEDS: ARTIFICIAL TEARS OPTH SOLN 15 ML BTL EACH EYE SCH ×3 (06:04→22:00)
[2017-06-26] MEDS: guaiFENesin SOLUTION 200 MG/10 ML CUP PEG SCH ×3 (06:04→22:00)
[2017-06-26] MEDS: hydrALAZINE HCL 20 MG/ML VIAL IV PUSH PRN ×2 (06:04→23:09)
[2017-06-26] MEDS: DOCUSATE SODIUM 100 MG/10 ML UDC PO SCH ×2 (07:53→21:00)
[2017-06-26] MEDS: POLYETHYLENE GLYCOL 17 GM PKG PEG SCH ×2 (07:53→21:00)
[2017-06-26] MEDS: INSULIN DETEMIR 100 UNITS/ML VIAL SQ SCH ×2 (09:00→21:00)
[2017-06-26] MEDS: SODIUM CHLORIDE 0.9% FLUSH 5 ML FLUSH IV FLUSH SCH ×2 (09:00→21:00)
[2017-06-26] MEDS: BENEPROTEIN POWDER 1 PACK G-TUBE SCH ×3 (09:00→18:00)
[2017-06-26] MEDS: ASPIRIN 325 MG TAB DOBHOFF SCH (09:43)
[2017-06-26] MEDS: CHOLECALCIFEROL (VIT D3) 5000 UNIT CAP PO SCH (09:43)
[2017-06-26] MEDS: CALCIUM/VITAMIN D 250 MG/125 U TAB PO SCH ×3 (09:43→18:00)
[2017-06-26] MEDS: ENOXAPARIN SODIUM 40 MG/0.4 ML SYRINGE SQ SCH (09:43)
[2017-06-26] MEDS: LANSOPRAZOLE SOLUTAB 30 MG TAB NG SCH (09:44)
[2017-06-26] MEDS: LISINOPRIL 10 MG TAB PO SCH ×2 (09:44→21:00)
[2017-06-27] VITALS (20 sets, daily range): BP systolic 134–180; BP diastolic 60–79; PULSE 64–86; RESP 14–26; TEMP 98.1–99.6; O2SAT 94–100
[2017-06-27] MEDS: PIPERACIL-TAZO 4.5 GM PREMIX 100 ML IV SCH ×4 (02:47→20:36)
[2017-06-27] MEDS: RESP: SODIUM CHLORIDE 3% 4 ML NEB NEB SCH ×4 (03:18→19:49)
[2017-06-27] MEDS: hydrALAZINE HCL 20 MG/ML VIAL IV PUSH PRN ×3 (03:27→22:22)
[2017-06-27] MEDS: guaiFENesin SOLUTION 200 MG/10 ML CUP PEG SCH ×3 (05:58→22:22)
[2017-06-27] MEDS: ARTIFICIAL TEARS OPTH SOLN 15 ML BTL EACH EYE SCH ×3 (05:58→22:23)
[2017-06-27] MEDS: INSULIN ASPART SUPPLEMENTAL SCALE SQ SCH ×4 (05:58→18:00)
[2017-06-27] MEDS: POLYETHYLENE GLYCOL 17 GM PKG PEG SCH ×2 (08:32→20:40)
[2017-06-27] MEDS: DOCUSATE SODIUM 100 MG/10 ML UDC PO SCH ×2 (08:32→20:40)
[2017-06-27] MEDS: BENEPROTEIN POWDER 1 PACK G-TUBE SCH ×3 (09:00→18:00)
[2017-06-27] MEDS: INSULIN DETEMIR 100 UNITS/ML VIAL SQ SCH ×2 (09:00→20:42)
[2017-06-27] MEDS: SODIUM CHLORIDE 0.9% FLUSH 5 ML FLUSH IV FLUSH SCH ×2 (09:00→21:00)
[2017-06-27] MEDS: CHOLECALCIFEROL (VIT D3) 5000 UNIT CAP PO SCH (09:00)
[2017-06-27] MEDS: LISINOPRIL 10 MG TAB PO SCH ×2 (09:34→20:37)
[2017-06-27] MEDS: CALCIUM/VITAMIN D 250 MG/125 U TAB PO SCH ×3 (09:34→18:00)
[2017-06-27] MEDS: LANSOPRAZOLE SOLUTAB 30 MG TAB NG SCH (09:34)
[2017-06-27] MEDS: ASPIRIN 325 MG TAB DOBHOFF SCH (09:34)
[2017-06-27] MEDS: ENOXAPARIN SODIUM 40 MG/0.4 ML SYRINGE SQ SCH (09:35)
[2017-06-27] MEDS: RESP: ALBUTEROL 2.5 MG/3 ML NEB (PRN) NEB (19:49)
[2017-06-27] MEDS: LABETALOL HCL 100 MG/20 ML VIAL IV PUSH PRN (23:59)
[2017-06-28] VITALS (18 sets, daily range): BP systolic 116–174; BP diastolic 60–79; PULSE 58–82; RESP 14–21; TEMP 97.5–98.7; O2SAT 97–100
[2017-06-28] MEDS: hydrALAZINE HCL 20 MG/ML VIAL IV PUSH PRN ×3 (01:39→05:19)
[2017-06-28] MEDS: PIPERACIL-TAZO 4.5 GM PREMIX 100 ML IV SCH ×4 (02:50→21:31)
[2017-06-28] MEDS: RESP: SODIUM CHLORIDE 3% 4 ML NEB NEB SCH ×4 (03:21→19:43)
[2017-06-28] MEDS: RESP: ALBUTEROL 2.5 MG/3 ML NEB (PRN) NEB ×3 (03:21→19:43)
[2017-06-28] MEDS: ARTIFICIAL TEARS OPTH SOLN 15 ML BTL EACH EYE SCH ×3 (05:20→21:32)
[2017-06-28] MEDS: INSULIN ASPART SUPPLEMENTAL SCALE SQ SCH ×5 (05:20→23:45)
[2017-06-28] MEDS: guaiFENesin SOLUTION 200 MG/10 ML CUP PEG SCH ×3 (05:20→21:31)
--- NOTE | 2017-06-28 08:43 | HHI.CCPN ---
Subjective Remarks/Hospital Course 04/24: 76-year-old female with a medical history significant for prior stroke, diabetes mellitus who was admitted with DKA and a hip fracture for which she underwent ORIF on 04/21. Patient developed altered mental status and was last noted to be okay around 5:30 AM. Subsequently there was a change in her mental status and she was noted to not be moving her right side for which stroke alert was called. Head CT showed large left MCA territory ischemic infarct with edema. Patient was transferred to the ICU by family medicine service in the critical care consult was requested. I evaluated the patient following arrival to the ICU. At that time she was laying in bed with her eyes open however not following commands and had a dense right hemiplegia. Patient was also evaluated by Dr. Malave from neurology. I further discussed current event with patient's daughter following her arrival to the ICU. Per the daughter patient has been living with her since her stroke in 2014 and does ambulate however has been having problems with memory and incontinence as well as gait difficulties. She does not feel patient would want intubation or tracheostomy or PEG tube. 04/25: Patient remains encephalopathic, awake though not following commands consistently. Dense right hemiplegia persists. Appears to be awake enough to protect airway currently. Patient's daughter rescinded DNR and made a full code last evening. 04/26: Remains encephalopathic, not following commands. On Dobbhoff for tube feeds at 30 cc per hour. Had urinary retention and drained 2 L of urine after placing Moser catheter today. CT head done this morning with large left MCA territory infarct with left to right midline shift and significant cerebral edema. Hyperglycemia noted. Patient given mannitol earlier for increasing cerebral edema. 04/27: Remains encephalopathic, not following commands. On Dobbhoff tube feeds at 30 cc per hour. When into A. fib with RVR last night which responded with Lopressor 5 mg IV 1 dose. 04/28: Remains encephalopathic, arousable, not following commands. Moves left upper extremity spontaneously. Tolerating Dobbhoff tube feeds. Remains on nasal cannula. 04/29: Encephalopathic, eyes be arousable, moves left upper extremity spontaneously and occasionally opens eyes. Dense right hemiplegia and aphasia persists. On nasal cannula. Dobbhoff tube feeds being advanced. Patient was transfused 1 unit PRBCs yesterday. Urine culture with yeast from yesterday for which fluconazole being started. Had brief run of A. fib with RVR which improved with Lopressor IV, currently in sinus rhythm. 04/30: Worsening hypoxemic respiratory failure, currently on partial nonrebreather. Remains lethargic. WBC count increased from 14.6 today 20.7. Chest x-ray shows bilateral worsening infiltrates and small pleural effusions. Sodium 154, weight up by 8 KG. Albumin 1 mg Bumex 1. Also one dose of albumin. Remains in sinus tachycardia. Tmax 101.3 05/01: Patient was intubated yesterday for lack of airway protection, and severe hypoxemic respiratory failure from aspiration pneumonia involving multiple lobes. Patient is on the vent lethargic, no spontaneous eye opening. Chest x- ray remains unchanged. Remains intermittently febrile Tmax 101.3. WBC count improving 05/02: Remains critically ill with no improvement in mental status. Spiking fever of 101.7. Blood culture and sputum culture with staph aureus sputum also growing GNR, WBC count 22,000 now indicating worsening sepsis. Daughter still requesting aggressive care. Palliative care is following 05/03: S/P large area dominant hemisphere CVA. No neurological improvement. Now with pneumonia (infiltrate, fever, leukocytosis) and appropriate abx coverage. She will have a hard time surviving the hip fx, CVA, and pneumonia. Palliative Care needs to be a mainstay of our plan. 05/04: No improvement in neuro status. Sputum C&S allows us to narrow abx coverage to levaquin alone. Lungs remain quite congested. Enteral nutrition tolerated. 05/05: No improvement in neuro status. Moves left arm spontaneously. Flaccid right side. Unresponsive. Persistent mild hypoglycemia - will cut Levemir 50%. Abdomen more distended, check KUB. 05/06: CT head with massive left MCA infarction and > 1 cm shift in right handed woman. She opens eyes, does not track. 05/07: Patient open eyes. Attempts to respond. Austrian speaking. Tolerating tube feeds. Positive bowel movement. Volume overloaded. 05/08: Tmax 99.4. Potassium being replaced. Ultrasound gallbladder currently pending. Transaminases are trending downward. Gently diurese. 05/09: Alk phos decreasing. Remains with good urine output. Neurological status not improving. 05/10: Fixed neuro deficit unchanged. Profound CVA. 05/11: Appears to track with eyes today. No improvement in motor function. Remains very edematous, diuretics doubled. 05/12: Continued thick secretions. Afebrile, leukocytosis resolved. 05/13: CT head with completed left MCA stroke, persistent edema and 5 mm shift away. Does not last long on SBTs - major decision now is trach/PEG. 05/14: Daughter has decided to proceed with trach and PEG. I have been pessimistic with her about chances for a meaningful recovery. 05/15: Plan for trach today. No change in neuro status. Still ventilator dependent. 05/16: Trach completed. Await PEG and disposition. 05/17: PEG placed 05/16. Start TFs today after nutrition consult. Work to place patient. 05/18: No improvement. Does open eyes, no focus or tracking. Completed large dominant (left) hemisphere CVA in right handed woman with severe deficit. Medicaid pending status, [facility] is following. 05/19: no improvements in neuro exam. ready for LTAC. will d/c moser and rectal tubes. 05/20: no changes or improvements. very difficult placement due to patient not [place] citizen. 05/21: no improvements. resting on vent overnight due to distress. 05/22: no neurologic changes. no improvements. attempted T-piece which failed after 10 minutes. 05/23: no improvements. poor prognosis. poor neuro exam. still failing weaning trials. 05/24: no improvements or changes. still failing t-piece trials. 05/25: No acute changes of improvement overnight. Failed CPAP due to apnea, tried again currently tolerating. Neurological exam unchanged. 05/26: No improvement in neurological function. 05/27: Patient has required Moser catheter because of breakdown of skin on upper thighs and groin. Urine has become infected, will treat. 05/28: Some drainage from around trach (placed 2 weeks ago). Will change out trach tube and inspect neck wound. I&O straight cath q6h order entered 05/17. 05/29: No improvement, remains obtunded. Failed CPAP trials yesterday and again today due to apnea. Moser placed due to persistent urinary retention 05/30: Obtunded, unresponsive. Failed SBTs, remains ventilator dependent. 05/31: Patient continues to fail SBT failed yesterday due to apnea. Neuro exam remains unchanged. 06/01: No acute changes overnight, 06/02: no changes. ekg done overnight for ? EKG changes seen on telemetry which were not visualized on EKG. 06/03: no improvements or changes. had long conversation with daughter yesterday. only facility which would accept patient is in [place] and daughter is refusing to allow patient to go there because it is "too far away." Daughter continues to push for aggressive care despite no improvements, and resistant to Hospice. Patient does not need acute inpatient therapy but lacks funding for appropriate disposition. 06/04: No acute events overnight, failed SBT due to apnea. 06/05: No acute events, continues to fail spontaneous breathing trials. Unable to wean 06/06 Currently tolerating CPAP. Will attempt TP today up to 4 hours. No acute events overnight 06/07: Tolerating trach collar/T-piece. Transfer soon. 06/08: Awaiting transfer. 06/09: Remains ventilator dependent. No improvement in neurological function. 06/10: No improvement. Daughter is not attending preplanned meetings to discuss disposition 06/12: Afebrile. Neurologically stable and unchanged. Noted sodium 135. Adding sodium chloride tablets 1 today. Not on free water.. Tolerating tube feeds at goal 45 cc an hour. 06/13: No improvement in neurological function. 06/14: No improvement. Fluid balance correct. Gas exchange acceptable. 06/15: No improvement. Obtunded and unresponsive. 06/16: no improvements in mental status. KUB overnight with dilated small bowel loops. given methylnaltrexone and erythromycin. today abdomen is soft and tolerating tube feeds. 06/17: tolerated t-piece x 6 hours yesterday. rested on cpap overnight. no changes in encephalopathy. 06/18: Currently on ventilator overnight. Multiple bowel movements. Thick yellow secretions noted in ventilator circuit. Opens eyes. 06/19: Afebrile. Tolerating stretcher chair yesterday on PSV. Tolerating tube feeding. Neurologically unchanged. 06/20: Afebrile. Resting in bed in no acute distress in sitting position. Currently on ventilator set sitting. Tolerated stretcher chair/PSV trial 6 hours yesterday. Neurologically unchanged. 06/21: Tmax 100.8. Patient with copious thick yellow secretions. Tolerating tube feeds. Positive bowel movement. Lasted only 1 hour PSV yesterday 06/22: Tmax 99.9. Continues to have thick secretions. Tolerating tube feeding. Positive BM. Subjective 06/23: Afebrile. Continues to have thick tracheal secretions from tracheostomy site. Tolerating tube feeding. 3 bowels movements. Opens eyes to stimulation. Stares at you but does not follow commands. 06/24: Remains encephalopathic, on mechanical ventilation via tracheostomy. Tolerating PEG feeds 06/25: Remains encephalopathic on mechanical ventilation. Tolerated C Pap +5 with pressure support +10 all day yesterday. Tolerating PEG feeds. 06/26: No improvement.Vent dependent still. 06/27: Remains encephalopathic, on mech vent via trach. Daily CPAP trials. 06/28: Unable to wean from ventilator. Objective Vital Signs Date Time Temp Pulse Resp B/P (MAP) Pulse Ox O2 Delivery O2 Flow Rate FiO2 06/28/17 08:22 100 40 06/28/17 06:00 71 06/28/17 04:00 98.3 14 153/67 (95) 06/26/17 20:15 Ventilator 06/24/17 15:45 5.00 Intake and Output 06/28/17 06/28/17 06/29/17 08:00 16:00 00:00 Intake Total 614 ml Output Total 1000 ml Balance -386 ml Result Diagram: 06/24/17 0650 06/24/17 0650 Imaging Last Impressions Chest X-Ray 06/22/17 0600 Signed Impressions: Service Date/Time: Thursday, June 22, 2017 04:47 - CONCLUSION: 1. Mild scarring with no evidence of pneumonia. Jose R Casanova MD Liver Ultrasound 06/19/17 0000 Signed Impressions: Service Date/Time: June 13:20 - CONCLUSION: 1. Mildly increased echotexture of the liver characteristic of hepatic steatosis. 2. Gallbladder sludge. Obdulio Sam MD Abdomen X-Ray 06/16/17 0000 Signed Impressions: Service Date/Time: Friday, June 16, 2017 04:48 - CONCLUSION: 1. Continued small bowel ileus. There has been no significant change when compared to the prior exam. Toy Duran MD Head CT 05/15/17 0000 Signed Impressions: Service Date/Time: May 19:59 - CONCLUSION: 1. 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 2. No bleed or new/acute infarct. Obdulio Simms MD Gall Bladder Ultrasound 05/08/17 0000 Signed Impressions: Service Date/Time: May 08:23 - CONCLUSION: Focally unremarkable appearance of the gallbladder Obdulio Chun MD Abdomen/Pelvis CT 05/07/17 0000 Signed Impressions: Service Date/Time: Sunday, May 07, 2017 13:23 - CONCLUSION: 1. Large left pneumothorax. 2. Bilateral lower lobe consolidation and bilateral moderate size pleural effusions. 3. Significant soft tissue thickening of the right lateral chest wall and left gluteus muscle. 4. Mild ascites. The findings were called to Dr. Carney. Deangelo Zamora MD Hip and Pelvis X-Ray 05/05/17 0000 Signed Impressions: Service Date/Time: Friday, May 05, 2017 10:59 - CONCLUSION: Left proximal femur trochanteric/subtrochanteric fracture lucency visualized. Postoperative changes. Choco Mustafa MD Chest CT 04/30/17 0000 Signed Impressions: Service Date/Time: Sunday, April 30, 2017 09:20 - CONCLUSION: 1. Bilateral pulmonary infiltrates more pronounced within the lower lobes with tiny bilateral pleural effusions. Material seen filling the lower lobe bronchi bilaterally either related to purulent material or perhaps mucus plugging. Deangelo Wren Jr., MD Carotid Artery Ultrasound 04/24/17 0000 Signed Impressions: Service Date/Time: April 09:45 - CONCLUSION: 1. No hemodynamically significant carotid artery stenosis. Arnie Middleton MD Hip X-Ray 04/21/17 0000 Signed Impressions: Service Date/Time: Friday, April 21, 2017 11:36 - CONCLUSION: Fluoroscopic images during placement of intramedullary siomara left femur. Benja Ramsey MD Objective Remarks Gen: 76-year-old female, resting in bed in no acute distress HEENT: mucous membranes moist. And pink. Oropharynx without erythema. No thrush. Neck: Trach site clean and dry. #8 Shiley. Supple. Resp: Transmitted upper airway sounds clear with suctioning/coughing. No wheezing Cardiovascular: RRR. S1, S2. No S4. No murmurs, no JVD. GI/abdomen: Soft, nontender, somewhat protuberant. PEG tube site is clean dry and intact. Extremities: Warm, well perfused. No rash Neuro: Eyes open with coughing. Dense right hemiplegia. Withdraws left upper extremity, Withdraws LLE. Pupils 2 mm, react bilaterally. A/P Assessment and Plan Neuro/Psych: Left MCA CVA - 5.5 mm of [id number] subfalcine herniation. right-sided hemiplegia Acute encephalopathy History CVA Continue Aspirin 325 mg by mouth daily. On admission, patient was not a candidate for thrombolysis per discussion with neurology and radiology. Repeat head CT 05/15 showed slight improvement in the midline shift now 5.5 mm and mass effect Neurosurgery consulted 04/30- Dr. López, recommended conservative management. Neurology Dr. Malave has followed Cardiovascular: Hypertension As needed Antihypertensives to keep systolic blood pressure less than to 160 mmHg (when necessary IV labetalol and IV hydralazine) Lisinopril 10 mg twice a day 05/31/17, with improved BP control. Increase to 20 20 mg twice a day 06/21 Echocardiogram 04/24 - EF 50 to 55%. Mild concentric LVH. Pulmonary: Acute hypoxic respiratory failure - aspiration possible HCAP - resolved. chronic vent dependent respiratory failure Large left pneumothorax status post #10 Lebanese chest tube 05/07 - resolved. Chronic respiratory failure, currently on PRVC. 14/450/09/05/34 PSV trials as tolerated and transition to T piece as able. persistent difficulty with weaning. tolerated 4 hours of t-piece yesterday. plan to continue slow weaning as able. Ventilator bundle. Ipratropium/albuterol aerosols every 6 hours with albuterol aerosols every 2 hours Chest tube d/c'd 05/12 Adding guaifenesin 400 every 8 hours and 3% hypertonic saline aerosols every 6 hours 8 days for secretions on 06/21 GI/liver: Elevated transaminases Hypoalbuminemia Severe protein calorie malnutrition Small bowel ileus- resolving. Hepatitis C antibody positive with negative genotype/viral load Hepatic steatosis Continue PEG tube feeding with Glucerna 1.5 goal 45 cc an hour Lansoprazole 30 mg daily for GI regimen Docusate sodium 100 mg twice a day for bowel regimen and polyethylene glycol 17 g twice daily Erythromycin 250 mg 3 times a day for prokinetic will be discontinued 06/[address] abdomen/pelvis 05/07 - mild ascites. Large left hemothorax. Right greater than left pleural effusion. Abdominal x-ray 06/16- small bowel ileus liver ultrasound 06/19 revealed hepatic steatosis and gallbladder sludge Endocrine: Diabetes mellitus Detemir 10 units subcutaneous daily. SSI high dose q4h. Holding glimepiride 4 mg by mouth daily /Renal/FEN: Hyponatremia Strict intake output, monitor and replete electrolytes, follow BUN/creatinine. Moser catheter placed for urinary retention on 04/26. Moser removed 05/19 with q6h straight cath. Moser replaced again due to persistent urinary retention. Follow-up on BMP/magnesium phosphorus in a.m. 06/20 stable Heme: Chronic Rivaroxaban use Leukocytosis Normocytic anemia Thrombocytosis Follow CBC and coags. On subcutaneous enoxaparin 40 mg daily subcutaneous Hemoglobin currently stable. No indications for transfusion of blood proximally at this time ID: MSSA bacteremia - resolved. Serratia/staph aureus pneumonia - resolved. C glabrata UTI - resolved. Citrobacter UTI - resolved. Serratia/MSSA sputum VAP Pertinent cultures Urine culture 04/26/17 sofie glabrata Blood culture 04/29/17 1 out of 4 bottles staph aureus Sputum culture 04/30/17 MSSA and Serratia. urine 05/07-> Serratia, treated. Urine 05/25: Citrobacter Ceftriaxone started 05/26, changed to Cefepime 05/27 based on sensitivity, stopped 06/03/17 Started on piperacillin/tazobactam and vancomycin 06/21 times 8 days for VAP. Vancomycin discontinued 06/23 MSK: Left Intertroch Hip Fx s/p IMN Vitamin D deficiency Continue calcium vitamin D 250/125 one tablet 3x a day and cholecalciferol 5000 units daily. PT/OT evaluate and treat Prophylaxis: SCDs. Enoxaparin 40 mg subcutaneous daily-cleared by Dr. Malave. GI - lansoprazole 30 mg by PEG tube daily Overall impression: No change. Continue efforts with SBTs. Charles Pedraza MD Jun 28, 2017 08:43
[2017-06-28] MEDS: POLYETHYLENE GLYCOL 17 GM PKG PEG SCH ×2 (09:00→21:00)
[2017-06-28] MEDS: DOCUSATE SODIUM 100 MG/10 ML UDC PO SCH ×2 (09:00→21:00)
[2017-06-28] MEDS: SODIUM CHLORIDE 0.9% FLUSH 5 ML FLUSH IV FLUSH SCH ×2 (09:00→21:32)
[2017-06-28] MEDS: LISINOPRIL 10 MG TAB PO SCH ×2 (10:01→21:31)
[2017-06-28] MEDS: CHOLECALCIFEROL (VIT D3) 5000 UNIT CAP PO SCH (10:01)
[2017-06-28] MEDS: ENOXAPARIN SODIUM 40 MG/0.4 ML SYRINGE SQ SCH (10:01)
[2017-06-28] MEDS: BENEPROTEIN POWDER 1 PACK G-TUBE SCH ×3 (10:02→18:22)
[2017-06-28] MEDS: ASPIRIN 325 MG TAB DOBHOFF SCH (10:02)
[2017-06-28] MEDS: LANSOPRAZOLE SOLUTAB 30 MG TAB NG SCH (10:02)
[2017-06-28] MEDS: CALCIUM/VITAMIN D 250 MG/125 U TAB PO SCH ×3 (10:02→18:22)
[2017-06-28] MEDS: INSULIN DETEMIR 100 UNITS/ML VIAL SQ SCH ×2 (10:03→21:32)
[2017-06-29] VITALS (18 sets, daily range): BP systolic 134–167; BP diastolic 57–72; PULSE 61–90; RESP 14–26; TEMP 97.8–98.4; O2SAT 95–100
[2017-06-29] MEDS: PIPERACIL-TAZO 4.5 GM PREMIX 100 ML IV SCH (02:07)
[2017-06-29] MEDS: RESP: SODIUM CHLORIDE 3% 4 ML NEB NEB SCH ×2 (03:21→08:21)
[2017-06-29] MEDS: RESP: ALBUTEROL 2.5 MG/3 ML NEB (PRN) NEB ×2 (03:21→08:17)
[2017-06-29] MEDS: INSULIN ASPART SUPPLEMENTAL SCALE SQ SCH ×4 (06:00→23:59)
[2017-06-29] MEDS: guaiFENesin SOLUTION 200 MG/10 ML CUP PEG SCH (06:02)
[2017-06-29] MEDS: ARTIFICIAL TEARS OPTH SOLN 15 ML BTL EACH EYE SCH ×3 (06:02→21:10)
[2017-06-29] MEDS: ENOXAPARIN SODIUM 40 MG/0.4 ML SYRINGE SQ SCH (08:42)
[2017-06-29] MEDS: POLYETHYLENE GLYCOL 17 GM PKG PEG SCH ×2 (09:00→21:00)
--- NOTE | 2017-06-29 09:28 | HHI.CCPN ---
Subjective Remarks/Hospital Course 04/24: 76-year-old female with a medical history significant for prior stroke, diabetes mellitus who was admitted with DKA and a hip fracture for which she underwent ORIF on 04/21. Patient developed altered mental status and was last noted to be okay around 5:30 AM. Subsequently there was a change in her mental status and she was noted to not be moving her right side for which stroke alert was called. Head CT showed large left MCA territory ischemic infarct with edema. Patient was transferred to the ICU by family medicine service in the critical care consult was requested. I evaluated the patient following arrival to the ICU. At that time she was laying in bed with her eyes open however not following commands and had a dense right hemiplegia. Patient was also evaluated by Dr. Malave from neurology. I further discussed current event with patient's daughter following her arrival to the ICU. Per the daughter patient has been living with her since her stroke in 2014 and does ambulate however has been having problems with memory and incontinence as well as gait difficulties. She does not feel patient would want intubation or tracheostomy or PEG tube. 04/25: Patient remains encephalopathic, awake though not following commands consistently. Dense right hemiplegia persists. Appears to be awake enough to protect airway currently. Patient's daughter rescinded DNR and made a full code last evening. 04/26: Remains encephalopathic, not following commands. On Dobbhoff for tube feeds at 30 cc per hour. Had urinary retention and drained 2 L of urine after placing Moser catheter today. CT head done this morning with large left MCA territory infarct with left to right midline shift and significant cerebral edema. Hyperglycemia noted. Patient given mannitol earlier for increasing cerebral edema. 04/27: Remains encephalopathic, not following commands. On Dobbhoff tube feeds at 30 cc per hour. When into A. fib with RVR last night which responded with Lopressor 5 mg IV 1 dose. 04/28: Remains encephalopathic, arousable, not following commands. Moves left upper extremity spontaneously. Tolerating Dobbhoff tube feeds. Remains on nasal cannula. 04/29: Encephalopathic, eyes be arousable, moves left upper extremity spontaneously and occasionally opens eyes. Dense right hemiplegia and aphasia persists. On nasal cannula. Dobbhoff tube feeds being advanced. Patient was transfused 1 unit PRBCs yesterday. Urine culture with yeast from yesterday for which fluconazole being started. Had brief run of A. fib with RVR which improved with Lopressor IV, currently in sinus rhythm. 04/30: Worsening hypoxemic respiratory failure, currently on partial nonrebreather. Remains lethargic. WBC count increased from 14.6 today 20.7. Chest x-ray shows bilateral worsening infiltrates and small pleural effusions. Sodium 154, weight up by 8 KG. Albumin 1 mg Bumex 1. Also one dose of albumin. Remains in sinus tachycardia. Tmax 101.3 05/01: Patient was intubated yesterday for lack of airway protection, and severe hypoxemic respiratory failure from aspiration pneumonia involving multiple lobes. Patient is on the vent lethargic, no spontaneous eye opening. Chest x- ray remains unchanged. Remains intermittently febrile Tmax 101.3. WBC count improving 05/02: Remains critically ill with no improvement in mental status. Spiking fever of 101.7. Blood culture and sputum culture with staph aureus sputum also growing GNR, WBC count 22,000 now indicating worsening sepsis. Daughter still requesting aggressive care. Palliative care is following 05/03: S/P large area dominant hemisphere CVA. No neurological improvement. Now with pneumonia (infiltrate, fever, leukocytosis) and appropriate abx coverage. She will have a hard time surviving the hip fx, CVA, and pneumonia. Palliative Care needs to be a mainstay of our plan. 05/04: No improvement in neuro status. Sputum C&S allows us to narrow abx coverage to levaquin alone. Lungs remain quite congested. Enteral nutrition tolerated. 05/05: No improvement in neuro status. Moves left arm spontaneously. Flaccid right side. Unresponsive. Persistent mild hypoglycemia - will cut Levemir 50%. Abdomen more distended, check KUB. 05/06: CT head with massive left MCA infarction and > 1 cm shift in right handed woman. She opens eyes, does not track. 05/07: Patient open eyes. Attempts to respond. [place] speaking. Tolerating tube feeds. Positive bowel movement. Volume overloaded. 05/08: Tmax 99.4. Potassium being replaced. Ultrasound gallbladder currently pending. Transaminases are trending downward. Gently diurese. 05/09: Alk phos decreasing. Remains with good urine output. Neurological status not improving. 05/10: Fixed neuro deficit unchanged. Profound CVA. 05/11: Appears to track with eyes today. No improvement in motor function. Remains very edematous, diuretics doubled. 05/12: Continued thick secretions. Afebrile, leukocytosis resolved. 05/13: CT head with completed left MCA stroke, persistent edema and 5 mm shift away. Does not last long on SBTs - major decision now is trach/PEG. 05/14: Daughter has decided to proceed with trach and PEG. I have been pessimistic with her about chances for a meaningful recovery. 05/15: Plan for trach today. No change in neuro status. Still ventilator dependent. 05/16: Trach completed. Await PEG and disposition. 05/17: PEG placed 05/16. Start TFs today after nutrition consult. Work to place patient. 05/18: No improvement. Does open eyes, no focus or tracking. Completed large dominant (left) hemisphere CVA in right handed woman with severe deficit. Medicaid pending status, [facility] is following. 05/19: no improvements in neuro exam. ready for LTAC. will d/c moser and rectal tubes. 05/20: no changes or improvements. very difficult placement due to patient not [place] citizen. 05/21: no improvements. resting on vent overnight due to distress. 05/22: no neurologic changes. no improvements. attempted T-piece which failed after 10 minutes. 05/23: no improvements. poor prognosis. poor neuro exam. still failing weaning trials. 05/24: no improvements or changes. still failing t-piece trials. 05/25: No acute changes of improvement overnight. Failed CPAP due to apnea, tried again currently tolerating. Neurological exam unchanged. 05/26: No improvement in neurological function. 05/27: Patient has required Moser catheter because of breakdown of skin on upper thighs and groin. Urine has become infected, will treat. 05/28: Some drainage from around trach (placed 2 weeks ago). Will change out trach tube and inspect neck wound. I&O straight cath q6h order entered 05/17. 05/29: No improvement, remains obtunded. Failed CPAP trials yesterday and again today due to apnea. Moser placed due to persistent urinary retention 05/30: Obtunded, unresponsive. Failed SBTs, remains ventilator dependent. 05/31: Patient continues to fail SBT failed yesterday due to apnea. Neuro exam remains unchanged. 06/01: No acute changes overnight, 06/02: no changes. ekg done overnight for ? EKG changes seen on telemetry which were not visualized on EKG. 06/03: no improvements or changes. had long conversation with daughter yesterday. only facility which would accept patient is in [place] and daughter is refusing to allow patient to go there because it is "too far away." Daughter continues to push for aggressive care despite no improvements, and resistant to Hospice. Patient does not need acute inpatient therapy but lacks funding for appropriate disposition. 06/04: No acute events overnight, failed SBT due to apnea. 06/05: No acute events, continues to fail spontaneous breathing trials. Unable to wean 06/06 Currently tolerating CPAP. Will attempt TP today up to 4 hours. No acute events overnight 06/07: Tolerating trach collar/T-piece. Transfer soon. 06/08: Awaiting transfer. 06/09: Remains ventilator dependent. No improvement in neurological function. 06/10: No improvement. Daughter is not attending preplanned meetings to discuss disposition 06/12: Afebrile. Neurologically stable and unchanged. Noted sodium 135. Adding sodium chloride tablets 1 today. Not on free water.. Tolerating tube feeds at goal 45 cc an hour. 06/13: No improvement in neurological function. 06/14: No improvement. Fluid balance correct. Gas exchange acceptable. 06/15: No improvement. Obtunded and unresponsive. 06/16: no improvements in mental status. KUB overnight with dilated small bowel loops. given methylnaltrexone and erythromycin. today abdomen is soft and tolerating tube feeds. 06/17: tolerated t-piece x 6 hours yesterday. rested on cpap overnight. no changes in encephalopathy. 06/18: Currently on ventilator overnight. Multiple bowel movements. Thick yellow secretions noted in ventilator circuit. Opens eyes. 06/19: Afebrile. Tolerating stretcher chair yesterday on PSV. Tolerating tube feeding. Neurologically unchanged. 06/20: Afebrile. Resting in bed in no acute distress in sitting position. Currently on ventilator set sitting. Tolerated stretcher chair/PSV trial 6 hours yesterday. Neurologically unchanged. 06/21: Tmax 100.8. Patient with copious thick yellow secretions. Tolerating tube feeds. Positive bowel movement. Lasted only 1 hour PSV yesterday 06/22: Tmax 99.9. Continues to have thick secretions. Tolerating tube feeding. Positive BM. Subjective 06/23: Afebrile. Continues to have thick tracheal secretions from tracheostomy site. Tolerating tube feeding. 3 bowels movements. Opens eyes to stimulation. Stares at you but does not follow commands. 06/24: Remains encephalopathic, on mechanical ventilation via tracheostomy. Tolerating PEG feeds 06/25: Remains encephalopathic on mechanical ventilation. Tolerated C Pap +5 with pressure support +10 all day yesterday. Tolerating PEG feeds. 06/26: No improvement.Vent dependent still. 06/27: Remains encephalopathic, on mech vent via trach. Daily CPAP trials. 06/28: Unable to wean from ventilator. 06/29: Neurologically unchanged. Remains on mechanical ventilation. Daily C Pap trials ongoing. Objective Vital Signs Date Time Temp Pulse Resp B/P (MAP) Pulse Ox O2 Delivery O2 Flow Rate FiO2 06/29/17 08:25 98 40 06/29/17 06:00 66 06/29/17 04:00 98.4 14 147/72 (97) 06/26/17 20:15 Ventilator Intake and Output 06/29/17 06/29/17 06/30/17 08:00 16:00 00:00 Intake Total 694 ml Output Total 775 ml Balance -81 ml Imaging Last Impressions Chest X-Ray 06/22/17 0600 Signed Impressions: Service Date/Time: Thursday, June 22, 2017 04:47 - CONCLUSION: 1. Mild scarring with no evidence of pneumonia. Jose R Casanova MD Liver Ultrasound 06/19/17 0000 Signed Impressions: Service Date/Time: June 13:20 - CONCLUSION: 1. Mildly increased echotexture of the liver characteristic of hepatic steatosis. 2. Gallbladder sludge. Obdulio Sam MD Abdomen X-Ray 06/16/17 0000 Signed Impressions: Service Date/Time: Friday, June 16, 2017 04:48 - CONCLUSION: 1. Continued small bowel ileus. There has been no significant change when compared to the prior exam. Toy Duran MD Head CT 05/15/17 0000 Signed Impressions: Service Date/Time: May 19:59 - CONCLUSION: 1. 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 2. No bleed or new/acute infarct. Obdulio Simms MD Gall Bladder Ultrasound 05/08/17 0000 Signed Impressions: Service Date/Time: May 08:23 - CONCLUSION: Focally unremarkable appearance of the gallbladder Obdulio Chun MD Abdomen/Pelvis CT 05/07/17 0000 Signed Impressions: Service Date/Time: Sunday, May 07, 2017 13:23 - CONCLUSION: 1. Large left pneumothorax. 2. Bilateral lower lobe consolidation and bilateral moderate size pleural effusions. 3. Significant soft tissue thickening of the right lateral chest wall and left gluteus muscle. 4. Mild ascites. The findings were called to Dr. Carney. Deangelo Zamora MD Hip and Pelvis X-Ray 05/05/17 0000 Signed Impressions: Service Date/Time: Friday, May 05, 2017 10:59 - CONCLUSION: Left proximal femur trochanteric/subtrochanteric fracture lucency visualized. Postoperative changes. Choco Mustafa MD Chest CT 04/30/17 0000 Signed Impressions: Service Date/Time: Sunday, April 30, 2017 09:20 - CONCLUSION: 1. Bilateral pulmonary infiltrates more pronounced within the lower lobes with tiny bilateral pleural effusions. Material seen filling the lower lobe bronchi bilaterally either related to purulent material or perhaps mucus plugging. Deangelo Wren Jr., MD Carotid Artery Ultrasound 04/24/17 0000 Signed Impressions: Service Date/Time: April 09:45 - CONCLUSION: 1. No hemodynamically significant carotid artery stenosis. Arnie Middleton MD Hip X-Ray 04/21/17 0000 Signed Impressions: Service Date/Time: Friday, April 21, 2017 11:36 - CONCLUSION: Fluoroscopic images during placement of intramedullary siomara left femur. Benja Ramsey MD Objective Remarks Gen: 76-year-old female, resting in bed in no acute distress HEENT: mucous membranes moist. And pink. Oropharynx without erythema. No thrush. Neck: Trach site clean and dry. #8 [place]. Supple. Resp: Transmitted upper airway sounds clear with suctioning/coughing. No wheezing Cardiovascular: RRR. S1, S2. No S4. No murmurs, no JVD. GI/abdomen: Soft, nontender, somewhat protuberant. PEG tube site is clean dry and intact. Extremities: Warm, well perfused. No rash Neuro: Eyes open with coughing. Dense right hemiplegia. Withdraws left upper extremity, Withdraws LLE. Pupils 2 mm, react bilaterally. A/P Assessment and Plan Neuro/Psych: Left MCA CVA - 5.5 mm of [id number] subfalcine herniation. right-sided hemiplegia Acute encephalopathy History CVA Continue Aspirin 325 mg by mouth daily. On admission, patient was not a candidate for thrombolysis per discussion with neurology and radiology. Repeat head CT 05/15 showed slight improvement in the midline shift now 5.5 mm and mass effect Neurosurgery consulted 04/30- Dr. López, recommended conservative management. Neurology Dr. Malave has followed Cardiovascular: Hypertension As needed Antihypertensives to keep systolic blood pressure less than to 160 mmHg (when necessary IV labetalol and IV hydralazine) Lisinopril 20 mg twice a day Echocardiogram 04/24 - EF 50 to 55%. Mild concentric LVH. Pulmonary: Acute hypoxic respiratory failure - aspiration possible HCAP - resolved. chronic vent dependent respiratory failure Large left pneumothorax status post #10 Serbian chest tube 05/07 - resolved. Chronic respiratory failure, currently on PRVC. 14/450///35 PSV trials as tolerated and transition to T piece as able. persistent difficulty with weaning. plan to continue slow weaning as able. Ventilator bundle. Ipratropium/albuterol aerosols every 6 hours with albuterol aerosols every 2 hours Chest tube d/c'd 05/12 Adding guaifenesin 400 every 8 hours and 3% hypertonic saline aerosols every 6 hours 8 days for secretions on 06/21 GI/liver: Elevated transaminases Hypoalbuminemia Severe protein calorie malnutrition Small bowel ileus- resolving. Hepatitis C antibody positive with negative genotype/viral load Hepatic steatosis Continue PEG tube feeding with Glucerna 1.5 goal 45 cc an hour Lansoprazole 30 mg daily for GI regimen Docusate sodium 100 mg twice a day for bowel regimen and polyethylene glycol 17 g twice daily Erythromycin 250 mg 3 times a day for prokinetic will be discontinued 06/[address] abdomen/pelvis 05/07 - mild ascites. Large left hemothorax. Right greater than left pleural effusion. Abdominal x-ray 06/16- small bowel ileus liver ultrasound 06/19 revealed hepatic steatosis and gallbladder sludge Endocrine: Diabetes mellitus Detemir 10 units subcutaneous daily. SSI high dose q4h. Holding glimepiride 4 mg by mouth daily /Renal/FEN: Hyponatremia Strict intake output, monitor and replete electrolytes, follow BUN/creatinine. Moser catheter placed for urinary retention on 04/26. Moser removed 05/19 with q6h straight cath. Moser replaced again due to persistent urinary retention. Follow-up on BMP/magnesium phosphorus in a.m. 06/20 stable Heme: Chronic Rivaroxaban use Leukocytosis Normocytic anemia Thrombocytosis Follow CBC and coags. On subcutaneous enoxaparin 40 mg daily subcutaneous Hemoglobin currently stable. No indications for transfusion of blood proximally at this time ID: MSSA bacteremia - resolved. Serratia/staph aureus pneumonia - resolved. C glabrata UTI - resolved. Citrobacter UTI - resolved. Serratia/MSSA sputum VAP Pertinent cultures Urine culture 04/26/17 sofie glabrata Blood culture 04/29/17 1 out of 4 bottles staph aureus Sputum culture 04/30/17 MSSA and Serratia. urine 05/07-> Serratia, treated. Urine 05/25: Citrobacter Ceftriaxone started 05/26, changed to Cefepime 05/27 based on sensitivity, stopped 06/03/17 Started on piperacillin/tazobactam and vancomycin 06/21 times 8 days for VAP. Vancomycin discontinued 06/23 MSK: Left Intertroch Hip Fx s/p IMN Vitamin D deficiency Continue calcium vitamin D 250/125 one tablet 3x a day and cholecalciferol 5000 units daily. PT/OT evaluate and treat Prophylaxis: SCDs. Enoxaparin 40 mg subcutaneous daily-cleared by Dr. Malave. GI - lansoprazole 30 mg by PEG tube daily Overall impression: No change. Continue efforts with SBTs. Darrel Saleh MD Jun 29, 2017 09:28
[2017-06-29] MEDS: LISINOPRIL 10 MG TAB PO SCH ×2 (09:41→21:09)
[2017-06-29] MEDS: DOCUSATE SODIUM 100 MG/10 ML UDC PO SCH ×2 (09:41→21:00)
[2017-06-29] MEDS: ASPIRIN 325 MG TAB DOBHOFF SCH (09:42)
[2017-06-29] MEDS: CHOLECALCIFEROL (VIT D3) 5000 UNIT CAP PO SCH (09:42)
[2017-06-29] MEDS: LANSOPRAZOLE SOLUTAB 30 MG TAB NG SCH (09:42)
[2017-06-29] MEDS: CALCIUM/VITAMIN D 250 MG/125 U TAB PO SCH ×3 (09:42→19:29)
[2017-06-29] MEDS: INSULIN DETEMIR 100 UNITS/ML VIAL SQ SCH ×2 (09:43→21:10)
[2017-06-29] MEDS: SODIUM CHLORIDE 0.9% FLUSH 5 ML FLUSH IV FLUSH SCH ×2 (09:43→21:00)
[2017-06-29] MEDS: BENEPROTEIN POWDER 1 PACK G-TUBE SCH ×3 (09:55→19:30)
[2017-06-30] VITALS (17 sets, daily range): BP systolic 124–161; BP diastolic 60–70; PULSE 69–102; RESP 19–27; TEMP 98.3–98.9; O2SAT 94–98
[2017-06-30] MEDS: ARTIFICIAL TEARS OPTH SOLN 15 ML BTL EACH EYE SCH ×3 (06:00→21:49)
[2017-06-30] MEDS: INSULIN ASPART SUPPLEMENTAL SCALE SQ SCH ×3 (06:00→18:00)
[2017-06-30] MEDS: POLYETHYLENE GLYCOL 17 GM PKG PEG SCH ×2 (09:00→21:00)
[2017-06-30] MEDS: INSULIN DETEMIR 100 UNITS/ML VIAL SQ SCH ×2 (09:00→21:00)
[2017-06-30] MEDS: DOCUSATE SODIUM 100 MG/10 ML UDC PO SCH ×2 (09:00→21:00)
[2017-06-30] MEDS: SODIUM CHLORIDE 0.9% FLUSH 5 ML FLUSH IV FLUSH SCH ×2 (09:00→21:00)
[2017-06-30] MEDS: BENEPROTEIN POWDER 1 PACK G-TUBE SCH ×3 (09:00→17:17)
[2017-06-30] MEDS: LANSOPRAZOLE SOLUTAB 30 MG TAB NG SCH (09:40)
[2017-06-30] MEDS: CHOLECALCIFEROL (VIT D3) 5000 UNIT CAP PO SCH (09:40)
[2017-06-30] MEDS: CALCIUM/VITAMIN D 250 MG/125 U TAB PO SCH ×3 (09:40→17:18)
[2017-06-30] MEDS: ASPIRIN 325 MG TAB DOBHOFF SCH (09:40)
[2017-06-30] MEDS: ENOXAPARIN SODIUM 40 MG/0.4 ML SYRINGE SQ SCH (09:40)
[2017-06-30] MEDS: LISINOPRIL 10 MG TAB PO SCH ×2 (09:41→21:47)
[2017-06-30] MEDS: hydrALAZINE HCL 20 MG/ML VIAL IV PUSH PRN (15:51)
[2017-07-01] VITALS (18 sets, daily range): BP systolic 137–169; BP diastolic 55–77; PULSE 65–96; RESP 14–26; TEMP 98.3–99.4; O2SAT 96–100
[2017-07-01] MEDS: RESP: ALBUTEROL 2.5 MG/3 ML NEB (PRN) NEB ×2 (04:35→19:45)
[2017-07-01] MEDS: ARTIFICIAL TEARS OPTH SOLN 15 ML BTL EACH EYE SCH ×3 (06:00→21:14)
[2017-07-01] MEDS: INSULIN ASPART SUPPLEMENTAL SCALE SQ SCH ×4 (06:00→17:28)
[2017-07-01] MEDS: LISINOPRIL 10 MG TAB PO SCH ×2 (08:53→21:14)
[2017-07-01] MEDS: CHOLECALCIFEROL (VIT D3) 5000 UNIT CAP PO SCH (08:53)
[2017-07-01] MEDS: INSULIN DETEMIR 100 UNITS/ML VIAL SQ SCH ×2 (08:53→21:00)
[2017-07-01] MEDS: LANSOPRAZOLE SOLUTAB 30 MG TAB NG SCH (08:53)
[2017-07-01] MEDS: ASPIRIN 325 MG TAB DOBHOFF SCH (08:53)
[2017-07-01] MEDS: POLYETHYLENE GLYCOL 17 GM PKG PEG SCH ×2 (08:53→21:13)
[2017-07-01] MEDS: ENOXAPARIN SODIUM 40 MG/0.4 ML SYRINGE SQ SCH (08:53)
[2017-07-01] MEDS: DOCUSATE SODIUM 100 MG/10 ML UDC PO SCH ×2 (08:53→21:13)
[2017-07-01] MEDS: CALCIUM/VITAMIN D 250 MG/125 U TAB PO SCH ×3 (08:53→17:27)
[2017-07-01] MEDS: SODIUM CHLORIDE 0.9% FLUSH 5 ML FLUSH IV FLUSH SCH ×2 (08:54→21:00)
[2017-07-01] MEDS: BENEPROTEIN POWDER 1 PACK G-TUBE SCH ×3 (08:54→17:27)
[2017-07-01] MEDS: hydrALAZINE HCL 20 MG/ML VIAL IV PUSH PRN (12:24)
[2017-07-01] MEDS: DEXTROSE 50% IN WATER 50 ML SYRINGE IV PUSH PRN (17:30)
[2017-07-02] VITALS (22 sets, daily range): BP systolic 120–173; BP diastolic 60–76; PULSE 76–101; RESP 14–25; TEMP 98.4–98.6; O2SAT 91–99
[2017-07-02] MEDS: hydrALAZINE HCL 20 MG/ML VIAL IV PUSH PRN ×2 (00:37→06:36)
[2017-07-02] MEDS: INSULIN ASPART SUPPLEMENTAL SCALE SQ SCH ×4 (06:00→17:37)
[2017-07-02] MEDS: RESP: ALBUTEROL 2.5 MG/3 ML NEB (PRN) NEB (08:05)
[2017-07-02] MEDS: INSULIN DETEMIR 100 UNITS/ML VIAL SQ SCH ×2 (08:34→21:20)
[2017-07-02] MEDS: CHOLECALCIFEROL (VIT D3) 5000 UNIT CAP PO SCH (08:34)
[2017-07-02] MEDS: ARTIFICIAL TEARS OPTH SOLN 15 ML BTL EACH EYE SCH ×3 (08:34→21:20)
[2017-07-02] MEDS: DOCUSATE SODIUM 100 MG/10 ML UDC PO SCH ×2 (08:34→21:00)
[2017-07-02] MEDS: ENOXAPARIN SODIUM 40 MG/0.4 ML SYRINGE SQ SCH (08:34)
[2017-07-02] MEDS: SODIUM CHLORIDE 0.9% FLUSH 5 ML FLUSH IV FLUSH SCH ×2 (08:35→21:19)
[2017-07-02] MEDS: BENEPROTEIN POWDER 1 PACK G-TUBE SCH ×3 (08:35→17:37)
[2017-07-02] MEDS: LISINOPRIL 10 MG TAB PO SCH ×2 (08:35→21:19)
[2017-07-02] MEDS: CALCIUM/VITAMIN D 250 MG/125 U TAB PO SCH ×3 (08:35→17:37)
[2017-07-02] MEDS: ASPIRIN 325 MG TAB DOBHOFF SCH (08:35)
[2017-07-02] MEDS: POLYETHYLENE GLYCOL 17 GM PKG PEG SCH ×2 (08:35→21:00)
[2017-07-02] MEDS: LANSOPRAZOLE SOLUTAB 30 MG TAB NG SCH (08:35)
[2017-07-03] VITALS (16 sets, daily range): BP systolic 133–170; BP diastolic 62–82; PULSE 70–91; RESP 14–28; TEMP 97.8–99.2; O2SAT 94–100
[2017-07-03] MEDS: hydrALAZINE HCL 20 MG/ML VIAL IV PUSH PRN ×3 (03:14→22:31)
[2017-07-03] MEDS: INSULIN ASPART SUPPLEMENTAL SCALE SQ SCH ×5 (05:38→23:27)
[2017-07-03] MEDS: ARTIFICIAL TEARS OPTH SOLN 15 ML BTL EACH EYE SCH ×3 (05:38→20:55)
[2017-07-03] MEDS: CHOLECALCIFEROL (VIT D3) 5000 UNIT CAP PO SCH (08:31)
[2017-07-03] MEDS: CALCIUM/VITAMIN D 250 MG/125 U TAB PO SCH ×3 (08:31→17:39)
[2017-07-03] MEDS: LANSOPRAZOLE SOLUTAB 30 MG TAB NG SCH (08:31)
[2017-07-03] MEDS: LISINOPRIL 10 MG TAB PO SCH ×2 (08:31→20:53)
[2017-07-03] MEDS: BENEPROTEIN POWDER 1 PACK G-TUBE SCH ×3 (08:32→17:39)
[2017-07-03] MEDS: ASPIRIN 325 MG TAB DOBHOFF SCH (08:32)
[2017-07-03] MEDS: SODIUM CHLORIDE 0.9% FLUSH 5 ML FLUSH IV FLUSH SCH ×2 (08:32→20:54)
[2017-07-03] MEDS: POLYETHYLENE GLYCOL 17 GM PKG PEG SCH ×2 (08:32→20:11)
[2017-07-03] MEDS: ENOXAPARIN SODIUM 40 MG/0.4 ML SYRINGE SQ SCH (08:32)
[2017-07-03] MEDS: DOCUSATE SODIUM 100 MG/10 ML UDC PO SCH ×2 (08:32→20:11)
[2017-07-03] MEDS: INSULIN DETEMIR 100 UNITS/ML VIAL SQ SCH ×2 (08:32→20:54)
--- NOTE | 2017-07-03 10:18 | HHI.CCPN ---
Subjective Remarks/Hospital Course 04/24: 76-year-old female with a medical history significant for prior stroke, diabetes mellitus who was admitted with DKA and a hip fracture for which she underwent ORIF on 04/21. Patient developed altered mental status and was last noted to be okay around 5:30 AM. Subsequently there was a change in her mental status and she was noted to not be moving her right side for which stroke alert was called. Head CT showed large left MCA territory ischemic infarct with edema. Patient was transferred to the ICU by family medicine service in the critical care consult was requested. I evaluated the patient following arrival to the ICU. At that time she was laying in bed with her eyes open however not following commands and had a dense right hemiplegia. Patient was also evaluated by Dr. Malave from neurology. I further discussed current event with patient's daughter following her arrival to the ICU. Per the daughter patient has been living with her since her stroke in 2014 and does ambulate however has been having problems with memory and incontinence as well as gait difficulties. She does not feel patient would want intubation or tracheostomy or PEG tube. 04/25: Patient remains encephalopathic, awake though not following commands consistently. Dense right hemiplegia persists. Appears to be awake enough to protect airway currently. Patient's daughter rescinded DNR and made a full code last evening. 04/26: Remains encephalopathic, not following commands. On Dobbhoff for tube feeds at 30 cc per hour. Had urinary retention and drained 2 L of urine after placing Moser catheter today. CT head done this morning with large left MCA territory infarct with left to right midline shift and significant cerebral edema. Hyperglycemia noted. Patient given mannitol earlier for increasing cerebral edema. 04/27: Remains encephalopathic, not following commands. On Dobbhoff tube feeds at 30 cc per hour. When into A. fib with RVR last night which responded with Lopressor 5 mg IV 1 dose. 04/28: Remains encephalopathic, arousable, not following commands. Moves left upper extremity spontaneously. Tolerating Dobbhoff tube feeds. Remains on nasal cannula. 04/29: Encephalopathic, eyes be arousable, moves left upper extremity spontaneously and occasionally opens eyes. Dense right hemiplegia and aphasia persists. On nasal cannula. Dobbhoff tube feeds being advanced. Patient was transfused 1 unit PRBCs yesterday. Urine culture with yeast from yesterday for which fluconazole being started. Had brief run of A. fib with RVR which improved with Lopressor IV, currently in sinus rhythm. 04/30: Worsening hypoxemic respiratory failure, currently on partial nonrebreather. Remains lethargic. WBC count increased from 14.6 today 20.7. Chest x-ray shows bilateral worsening infiltrates and small pleural effusions. Sodium 154, weight up by 8 KG. Albumin 1 mg Bumex 1. Also one dose of albumin. Remains in sinus tachycardia. Tmax 101.3 05/01: Patient was intubated yesterday for lack of airway protection, and severe hypoxemic respiratory failure from aspiration pneumonia involving multiple lobes. Patient is on the vent lethargic, no spontaneous eye opening. Chest x- ray remains unchanged. Remains intermittently febrile Tmax 101.3. WBC count improving 05/02: Remains critically ill with no improvement in mental status. Spiking fever of 101.7. Blood culture and sputum culture with staph aureus sputum also growing GNR, WBC count 22,000 now indicating worsening sepsis. Daughter still requesting aggressive care. Palliative care is following 05/03: S/P large area dominant hemisphere CVA. No neurological improvement. Now with pneumonia (infiltrate, fever, leukocytosis) and appropriate abx coverage. She will have a hard time surviving the hip fx, CVA, and pneumonia. Palliative Care needs to be a mainstay of our plan. 05/04: No improvement in neuro status. Sputum C&S allows us to narrow abx coverage to levaquin alone. Lungs remain quite congested. Enteral nutrition tolerated. 05/05: No improvement in neuro status. Moves left arm spontaneously. Flaccid right side. Unresponsive. Persistent mild hypoglycemia - will cut Levemir 50%. Abdomen more distended, check KUB. 05/06: CT head with massive left MCA infarction and > 1 cm shift in right handed woman. She opens eyes, does not track. 05/07: Patient open eyes. Attempts to respond. [place] speaking. Tolerating tube feeds. Positive bowel movement. Volume overloaded. 05/08: Tmax 99.4. Potassium being replaced. Ultrasound gallbladder currently pending. Transaminases are trending downward. Gently diurese. 05/09: Alk phos decreasing. Remains with good urine output. Neurological status not improving. 05/10: Fixed neuro deficit unchanged. Profound CVA. 05/11: Appears to track with eyes today. No improvement in motor function. Remains very edematous, diuretics doubled. 05/12: Continued thick secretions. Afebrile, leukocytosis resolved. 05/13: CT head with completed left MCA stroke, persistent edema and 5 mm shift away. Does not last long on SBTs - major decision now is trach/PEG. 05/14: Daughter has decided to proceed with trach and PEG. I have been pessimistic with her about chances for a meaningful recovery. 05/15: Plan for trach today. No change in neuro status. Still ventilator dependent. 05/16: Trach completed. Await PEG and disposition. 05/17: PEG placed 05/16. Start TFs today after nutrition consult. Work to place patient. 05/18: No improvement. Does open eyes, no focus or tracking. Completed large dominant (left) hemisphere CVA in right handed woman with severe deficit. Medicaid pending status, [facility] is following. 05/19: no improvements in neuro exam. ready for LTAC. will d/c moser and rectal tubes. 05/20: no changes or improvements. very difficult placement due to patient not [place] citizen. 05/21: no improvements. resting on vent overnight due to distress. 05/22: no neurologic changes. no improvements. attempted T-piece which failed after 10 minutes. 05/23: no improvements. poor prognosis. poor neuro exam. still failing weaning trials. 05/24: no improvements or changes. still failing t-piece trials. 05/25: No acute changes of improvement overnight. Failed CPAP due to apnea, tried again currently tolerating. Neurological exam unchanged. 05/26: No improvement in neurological function. 05/27: Patient has required Moser catheter because of breakdown of skin on upper thighs and groin. Urine has become infected, will treat. 05/28: Some drainage from around trach (placed 2 weeks ago). Will change out trach tube and inspect neck wound. I&O straight cath q6h order entered 05/17. 05/29: No improvement, remains obtunded. Failed CPAP trials yesterday and again today due to apnea. Moser placed due to persistent urinary retention 05/30: Obtunded, unresponsive. Failed SBTs, remains ventilator dependent. 05/31: Patient continues to fail SBT failed yesterday due to apnea. Neuro exam remains unchanged. 06/01: No acute changes overnight, 06/02: no changes. ekg done overnight for ? EKG changes seen on telemetry which were not visualized on EKG. 06/03: no improvements or changes. had long conversation with daughter yesterday. only facility which would accept patient is in [place] and daughter is refusing to allow patient to go there because it is "too far away." Daughter continues to push for aggressive care despite no improvements, and resistant to Hospice. Patient does not need acute inpatient therapy but lacks funding for appropriate disposition. 06/04: No acute events overnight, failed SBT due to apnea. 06/05: No acute events, continues to fail spontaneous breathing trials. Unable to wean 06/06 Currently tolerating CPAP. Will attempt TP today up to 4 hours. No acute events overnight 06/07: Tolerating trach collar/T-piece. Transfer soon. 06/08: Awaiting transfer. 06/09: Remains ventilator dependent. No improvement in neurological function. 06/10: No improvement. Daughter is not attending preplanned meetings to discuss disposition 06/12: Afebrile. Neurologically stable and unchanged. Noted sodium 135. Adding sodium chloride tablets 1 today. Not on free water.. Tolerating tube feeds at goal 45 cc an hour. 06/13: No improvement in neurological function. 06/14: No improvement. Fluid balance correct. Gas exchange acceptable. 06/15: No improvement. Obtunded and unresponsive. 06/16: no improvements in mental status. KUB overnight with dilated small bowel loops. given methylnaltrexone and erythromycin. today abdomen is soft and tolerating tube feeds. 06/17: tolerated t-piece x 6 hours yesterday. rested on cpap overnight. no changes in encephalopathy. 06/18: Currently on ventilator overnight. Multiple bowel movements. Thick yellow secretions noted in ventilator circuit. Opens eyes. 06/19: Afebrile. Tolerating stretcher chair yesterday on PSV. Tolerating tube feeding. Neurologically unchanged. 06/20: Afebrile. Resting in bed in no acute distress in sitting position. Currently on ventilator set sitting. Tolerated stretcher chair/PSV trial 6 hours yesterday. Neurologically unchanged. 06/21: Tmax 100.8. Patient with copious thick yellow secretions. Tolerating tube feeds. Positive bowel movement. Lasted only 1 hour PSV yesterday 06/22: Tmax 99.9. Continues to have thick secretions. Tolerating tube feeding. Positive BM. Subjective 06/23: Afebrile. Continues to have thick tracheal secretions from tracheostomy site. Tolerating tube feeding. 3 bowels movements. Opens eyes to stimulation. Stares at you but does not follow commands. 06/24: Remains encephalopathic, on mechanical ventilation via tracheostomy. Tolerating PEG feeds 06/25: Remains encephalopathic on mechanical ventilation. Tolerated C Pap +5 with pressure support +10 all day yesterday. Tolerating PEG feeds. 06/26: No improvement.Vent dependent still. 06/27: Remains encephalopathic, on mech vent via trach. Daily CPAP trials. 06/28: Unable to wean from ventilator. 06/29: Neurologically unchanged. Remains on mechanical ventilation. Daily C Pap trials ongoing. 06/30: Remains encephalopathic. On C Pap overnight. Tolerating tube feeds. 07/01: No change in neurologic status. On mechanical ventilation via tracheostomy. Tolerating tube feeds. 07/02: Remains encephalopathic. No change in neurologic status. On mechanical ventilation via tracheostomy. Daily C Pap trials ongoing. 07/03: Occasional spontaneous eye opening however remains encephalopathic. On mechanical ventilation via tracheostomy. Objective Vital Signs Date Time Temp Pulse Resp B/P (MAP) Pulse Ox O2 Delivery O2 Flow Rate FiO2 07/03/17 08:00 86 07/03/17 08:00 40 07/03/17 08:00 98.2 17 150/67 (94) 99 07/03/17 07:00 Mechanical Ventilator 40.00 Intake and Output 07/03/17 07/03/17 07/04/17 08:00 16:00 00:00 Intake Total 583 ml Output Total 750 ml Balance -167 ml Imaging Last Impressions Chest X-Ray 06/22/17 0600 Signed Impressions: Service Date/Time: Thursday, June 22, 2017 04:47 - CONCLUSION: 1. Mild scarring with no evidence of pneumonia. Jose R Casanova MD Liver Ultrasound 06/19/17 0000 Signed Impressions: Service Date/Time: June 13:20 - CONCLUSION: 1. Mildly increased echotexture of the liver characteristic of hepatic steatosis. 2. Gallbladder sludge. Obdulio Sam MD Abdomen X-Ray 06/16/17 0000 Signed Impressions: Service Date/Time: Friday, June 16, 2017 04:48 - CONCLUSION: 1. Continued small bowel ileus. There has been no significant change when compared to the prior exam. Toy Duran MD Head CT 05/15/17 0000 Signed Impressions: Service Date/Time: May 19:59 - CONCLUSION: 1. 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 2. No bleed or new/acute infarct. Obdulio Simms MD Gall Bladder Ultrasound 05/08/17 0000 Signed Impressions: Service Date/Time: May 08:23 - CONCLUSION: Focally unremarkable appearance of the gallbladder Obdulio Chun MD Abdomen/Pelvis CT 05/07/17 0000 Signed Impressions: Service Date/Time: Sunday, May 07, 2017 13:23 - CONCLUSION: 1. Large left pneumothorax. 2. Bilateral lower lobe consolidation and bilateral moderate size pleural effusions. 3. Significant soft tissue thickening of the right lateral chest wall and left gluteus muscle. 4. Mild ascites. The findings were called to Dr. Carney. Deangelo Zamora MD Hip and Pelvis X-Ray 05/05/17 0000 Signed Impressions: Service Date/Time: Friday, May 05, 2017 10:59 - CONCLUSION: Left proximal femur trochanteric/subtrochanteric fracture lucency visualized. Postoperative changes. Choco Mustafa MD Chest CT 04/30/17 0000 Signed Impressions: Service Date/Time: Sunday, April 30, 2017 09:20 - CONCLUSION: 1. Bilateral pulmonary infiltrates more pronounced within the lower lobes with tiny bilateral pleural effusions. Material seen filling the lower lobe bronchi bilaterally either related to purulent material or perhaps mucus plugging. Deangelo Wren Jr., MD Carotid Artery Ultrasound 04/24/17 0000 Signed Impressions: Service Date/Time: April 09:45 - CONCLUSION: 1. No hemodynamically significant carotid artery stenosis. Arnie Middleton MD Hip X-Ray 04/21/17 0000 Signed Impressions: Service Date/Time: Friday, April 21, 2017 11:36 - CONCLUSION: Fluoroscopic images during placement of intramedullary siomara left femur. Benja Ramsey MD Objective Remarks Gen: 76-year-old female, resting in bed in no acute distress HEENT: mucous membranes moist. And pink. Oropharynx without erythema. No thrush. Neck: Trach site clean and dry. #8 [place]. Supple. Resp: Transmitted upper airway sounds clear with suctioning/coughing. No wheezing Cardiovascular: RRR. S1, S2. No S4. No murmurs, no JVD. GI/abdomen: Soft, nontender, somewhat protuberant. PEG tube site is clean dry and intact. Extremities: Warm, well perfused. No rash Neuro: Eyes open with coughing. Dense right hemiplegia. Withdraws left upper extremity, Withdraws LLE. Pupils 2 mm, react bilaterally. A/P Assessment and Plan Neuro/Psych: Left MCA CVA - 5.5 mm of [id number] subfalcine herniation. right-sided hemiplegia Acute encephalopathy History CVA Continue Aspirin 325 mg by mouth daily. On admission, patient was not a candidate for thrombolysis per discussion with neurology and radiology. Repeat head CT 05/15 showed slight improvement in the midline shift now 5.5 mm and mass effect Neurosurgery consulted 04/30- Dr. López, recommended conservative management. Neurology Dr. Malave has followed Cardiovascular: Hypertension As needed Antihypertensives to keep systolic blood pressure less than to 160 mmHg (when necessary IV labetalol and IV hydralazine) Lisinopril 20 mg twice a day Echocardiogram 04/24 - EF 50 to 55%. Mild concentric LVH. Pulmonary: Acute hypoxic respiratory failure - aspiration possible HCAP - resolved. chronic vent dependent respiratory failure Large left pneumothorax status post #10 Citizen [place] chest tube 05/07 - resolved. Chronic respiratory failure, currently on PRVC. 14/450/1//35 PSV trials as tolerated and transition to T piece as able. persistent difficulty with weaning. plan to continue slow weaning as able. Ventilator bundle. Ipratropium/albuterol aerosols every 6 hours with albuterol aerosols every 2 hours Chest tube d/c'd 05/12 Adding guaifenesin 400 every 8 hours and 3% hypertonic saline aerosols every 6 hours 8 days for secretions on 06/21 GI/liver: Elevated transaminases Hypoalbuminemia Severe protein calorie malnutrition Small bowel ileus- resolving. Hepatitis C antibody positive with negative genotype/viral load Hepatic steatosis Continue PEG tube feeding with Glucerna 1.5 goal 45 cc an hour Lansoprazole 30 mg daily for GI regimen Docusate sodium 100 mg twice a day for bowel regimen and polyethylene glycol 17 g twice daily Erythromycin 250 mg 3 times a day for prokinetic will be discontinued 06/[address] abdomen/pelvis 05/07 - mild ascites. Large left hemothorax. Right greater than left pleural effusion. Abdominal x-ray 06/16- small bowel ileus liver ultrasound 06/19 revealed hepatic steatosis and gallbladder sludge Endocrine: Diabetes mellitus Detemir 10 units subcutaneous daily. SSI high dose q4h. Holding glimepiride 4 mg by mouth daily /Renal/FEN: Hyponatremia Strict intake output, monitor and replete electrolytes, follow BUN/creatinine. Moser catheter placed for urinary retention on 04/26. Moser removed 05/19 with q6h straight cath. Moser replaced again due to persistent urinary retention. Follow-up on BMP/magnesium phosphorus in a.m. 06/20 stable Heme: Chronic Rivaroxaban use Leukocytosis Normocytic anemia Thrombocytosis Follow CBC and coags. On subcutaneous enoxaparin 40 mg daily subcutaneous Hemoglobin currently stable. No indications for transfusion of blood proximally at this time ID: MSSA bacteremia - resolved. Serratia/staph aureus pneumonia - resolved. C glabrata UTI - resolved. Citrobacter UTI - resolved. Serratia/MSSA sputum VAP Pertinent cultures Urine culture 04/26/17 sofie glabrata Blood culture 04/29/17 1 out of 4 bottles staph aureus Sputum culture 04/30/17 MSSA and Serratia. urine 05/07-> Serratia, treated. Urine 05/25: Citrobacter Ceftriaxone started 05/26, changed to Cefepime 05/27 based on sensitivity, stopped 06/03/17 Started on piperacillin/tazobactam and vancomycin 06/21 times 8 days for VAP. Vancomycin discontinued 06/23 MSK: Left Intertroch Hip Fx s/p IMN Vitamin D deficiency Continue calcium vitamin D 250/125 one tablet 3x a day and cholecalciferol 5000 units daily. PT/OT evaluate and treat Prophylaxis: SCDs. Enoxaparin 40 mg subcutaneous daily-cleared by Dr. Malave. GI - lansoprazole 30 mg by PEG tube daily Overall impression: No change. Continue efforts with SBTs. Darrel Saleh MD Jul 03, 2017 10:18
--- NOTE | 2017-07-03 14:46 | HHI.HCPN ---
Reason for visit a. To assist with evaluation and management of symptoms including: Debility and pain. b. To assist medical decision maker(s) with: better understanding of current medical conditions; weighing benefits/burdens of medical treatment options; making medical treatment decisions. . Subjective/Interval History Mrs. Hein is a 76-year-old female with a past medical history of hypertension, diabetes mellitus and CVA who presented to the ED on 04/20/17 via EMS for evaluation of after a fall. Upon ED admission, random glucose 559. Patient underwent Left hip reduction and intramedullary nail fixation on 04/21/17. Clinical course complicated by large left MCA infarct with diffuse edema throughout the left MCA distribution. Neurology, Dr. Malave consulted. Patient not a candidate for intervention, not a candidate for IV TPA. As per neurology "[place] 4Id the prognosis with a stroke of the size is poor". Palliative care consulted for further clarifications of goals of care given poor prognosis. Interval course: Status post tracheostomy 05/15/17, PEG tube placement 05/16/17. Persistent difficulty with weaning ventilator support. Currently on T piece at 8 liters, 50% FiO2. Most recent chest x-ray 06/24/17 revealing worsened bilateral patchy infiltrate. Sputum culture 06/18/17 positive for staph Aureus and Serratia marcescens. No improvement in neurological status, remains encephalopathic. Patient observed with eyes open, not tracking or following any commands. Spontaneous movement of head and left hand observed. Squeezing left hand but not to command. Patient remains afebrile, stable hemodynamically. Most recent laboratory data 06/24/17 revealing WBC 11.0, Hgb 9.5, platelet count 309. Liver enzymes remain elevated, AST 70, ALT 77, alkaline phosphatase 1004. Case discussed with Dr. Saleh and case management Doris Enriquez. . Family/friend interactions Lengthy telephone conversation with patient's daughter Trice Salvador. Medical update provided. Reviewed difficult ventilator weaning process and no significant neurological improvement. Reviewed that given patient's large MCA stroke, multiple comorbidities, multiple complications and profound physical deconditioning, she is not expected to regain meaningful neurological recovery/ return to baseline. Reviewed likely trajectory of illness in a bedbound patient to include recurrent infections, pressure ulcers, progressive physical decline and . Reviewed at length quality of life vs prolongation of survival. Daughter tells me that she remains hopeful that patient will regain neurological recovery as she has started moving her right leg as reported by nursing staff. Reviewed risks, benefits and limitations of CPR given patient's clinical condition and poor prognosis. Patient's daughter electing to continue full code status as she feels that patient is doing well and is making some clinical improvement. Ongoing emotional support and active listening provided. . Advance Directives Living Will: Never completed Health Care Surrogate: Never completed Durable Power of Tour Sales Representative: Never completed Advance Directive Specifics Health Care Surrogate(s): No advance directives completed. As per [place] statute, healthcare proxy decision making falls to patient's only daughter Norma Salvador. . Documented care wishes: No living will completed. . Significant change in goals: Goals of therapy remain aggressive. . Objective Vital Signs Date Time Temp Pulse Resp B/P (MAP) Pulse Ox O2 Delivery O2 Flow Rate FiO2 07/03/17 14:00 91 07/03/17 14:00 91 140/64 (89) 07/03/17 12:00 97.8 80 24 170/82 (111) 99 07/03/17 12:00 80 07/03/17 11:54 100 T-piece 8.00 50 07/03/17 10:00 82 07/03/17 08:00 86 07/03/17 08:00 40 07/03/17 08:00 98.2 86 17 150/67 (94) 99 07/03/17 07:49 98 40 07/03/17 07:40 98 40 07/03/17 07:00 99 Mechanical Ventilator 40.00 07/03/17 06:00 80 07/03/17 04:00 99.2 74 14 133/62 (85) 96 07/03/17 04:00 40 07/03/17 04:00 74 07/03/17 03:13 100 40 07/03/17 02:00 70 07/03/17 00:00 40 07/03/17 00:00 78 07/03/17 00:00 98.9 78 19 141/63 (89) 97 07/02/17 23:25 99 Ventilator 07/02/17 23:21 98 40 07/02/17 22:00 78 07/02/17 20:00 84 07/02/17 20:00 40 07/02/17 20:00 98.4 84 19 120/60 (80) 99 07/02/17 19:56 98 40 07/02/17 19:00 Mechanical Ventilator 40.00 07/02/17 18:00 76 07/02/17 16:04 40 07/02/17 16:00 98.6 80 18 134/63 (86) 99 07/02/17 16:00 80 Intake & Output 07/03/17 07/03/17 07:00 19:00 Intake Total 583 ml Output Total 750 ml Balance -167 ml Tube Feeding 523 ml Tube Irrigant 60 ml Output Urine Total 750 ml # Bowel Movements 4 Physical Exam CONSTITUTIONAL/GENERAL: This is an elderly female sitting up in Maddy chair in no acute distress. TUBES/LINES/DRAINS: PIV's. Tracheostomy, T piece. PEG tube. SKIN: No jaundice, rashes, or lesions. Ecchymoses on upper extremities. Skin temperature appropriate. Not diaphoretic. NECK: Trachea midline. Supple. Tracheostomy in place. CARDIOVASCULAR: Regular rate and rhythm. Peripheral pulses symmetric. RESPIRATORY/CHEST: Symmetric, tracheostomy. Clear breath sounds bilaterally. GASTROINTESTINAL: Abdomen soft, round, mildly distended. Bowel sounds present. PEG tube in place. GENITOURINARY: Without palpable bladder distension. MUSCULOSKELETAL: Extremities without clubbing, cyanosis. Trace edema to bilateral lower extremities. NEUROLOGICAL: Eyes opening spontaneously, not to command, not tracking. Nonpurposeful movement to head and left hand noted. Left-sided gaze. PSYCHIATRIC: Unable to evaluate secondary to clinical condition. Appears calm. . Diagnostic Tests Procedures * 05/16/17 -PEG tube placement * 05/15/17 -tracheostomy placement * 05/08/17 -left-sided chest tube/pigtail * 04/30/17 -endotracheal intubation * 04/21/17 -Left hip reduction and intramedullary nail fixation . Assessment and Plan Disease Oriented Problem List: (1) Acute respiratory failure (2) Acute CVA (cerebrovascular accident) (3) Pneumonia (4) Atrial fibrillation with RVR (5) Hypertension (6) Hip fracture Symptom Scale: (1) Shortness of breath 0-10 Scale: Unable to quantify Comment: Currently trached on mechanical ventilation. Failing SBT due to apnea. (2) Debility 0-10 Scale: Unable to quantify Comment: Progressive. (3) Pain 0-10 Scale: Unable to quantify Comment: Secondary to recent surgical intervention Pertinent Non-Medical Issues Psychosocial: Patient is originally from [place]. Residing in [place] up until 2013 she moved to [place] to live with only daughter Trice. Patient is a , in 2006. Spiritual: No mandaen affiliation. Legal: No advance directives completed. Ethical issues impacting care: Patient unable to participating in medical decision-making secondary to clinical condition. Patient's daughter acting as healthcare proxy decision maker. . Important Contacts Daughter Norma Salvador . . Prognosis Mrs. Hein needs a 76-year-old female with a past medical history of hypertension, diabetes mellitus and prior CVA. Presented with left hip fracture , underwent ORIF. Clinical course complicated by large left MCA infarct with edema. Overall prognosis is poor for a meaningful neurological recovery or long -term survival given acute stroke, chronic ongoing comorbidities and advanced age. Patient appears hospice appropriate should family elects comfort-directed care. . Code Status: Full Code Plan * CODE STATUS: FULL CODE. CODE STATUS readdress 07/03/17. Risks, benefits and limitations of CPR reviewed given patient's clinical condition and poor prognosis. Daughter electing full code. * HEALTHCARE DECISION-MAKING: Patient not capacitated for medical decision- making given severe large stroke, not expected to regain capacity. No advance directives completed, patient is . As per [place] statute, healthcare proxy decision-making falls to patient's only daughter Trice Salvador. * GOALS OF CARE: 07/03/17 - daughter Trice electing to continue full aggressive care to include full code. Lengthy telephone conversation with patient's daughter Trice Salvador. Medical update provided. Reviewed difficult ventilator weaning process and no significant neurological improvement. Reviewed that given patient's large MCA stroke, multiple comorbidities, multiple complications and profound physical deconditioning, she is not expected to regain meaningful neurological recovery/return to baseline. Reviewed likely trajectory of illness in a bedbound patient to include recurrent infections, pressure ulcers, progressive physical decline and . Reviewed at length quality of life vs prolongation of survival. Daughter tells me that she remains hopeful that patient will regain significant neurological recovery as she has started moving her right leg. Reviewed risks, benefits and limitations of CPR given patient's clinical condition and poor prognosis. Patient's daughter electing to continue full code status as she feels that patient is doing well and is making some clinical improvement. * SYMPTOMS: = Shortness of breath, multifactorial. Secondary to altered mental status/CVA, pneumonia, lethargy. Now trached and on mechanical ventilation. Patient failing SBT due to apnea. = Pain, secondary to recent surgical intervention. = Debility, progressive. Likely to continue to worsen given recent acute stroke and additional complications. * Case discussed with Dr. Saleh. * Difficult disposition, long-term plans for this patient are impacted by her psychosocial situation, no coverage/no payer source for long-term placement or rehab. Case discussed with correctional case records supervisor Doris Enriquez. * Palliative care contact information has been provided to patient's daughter. * Palliative care will continue to follow-up as needed for further clarifications of goals of care as patient's clinical condition continues to evolve. . Time Spent Total Floor Time (mins): 46 (Total time to include review of medical records, physical exam, lengthy telephone conversation with patient's daughter, case discussion with Dr. Saleh and correctional case records supervisor.) >50% Counseling/Coord of Care: Yes Attestation To help prompt me to consider important information that might be impacting today's encounter and assessment, information from prior notes written by myself or my colleagues may have been "brought forward" into today's note. My signature on this note, however, is an attestation that I personally performed the exam, history, and/or decision-making noted today, and, unless otherwise indicated, the interactions with patient, family, and staff as well as the review of records all occurred today. I also attest that the listed assessment and stated plan reflect my best clinical judgment today based on the combination of historical information, prior notes, and today's exam/ interactions. When time spent is documented, it refers only to time spent today by the signer, or if indicated, combined time spent today by collaborating physician/nurse practitioner. Ashly Steven Jul 03, 2017 14:46
[2017-07-04] VITALS (14 sets, daily range): BP systolic 144–163; BP diastolic 59–79; PULSE 74–94; RESP 18–21; TEMP 98.1–99.3; O2SAT 93–98
[2017-07-04] MEDS: LABETALOL HCL 100 MG/20 ML VIAL IV PUSH PRN (03:13)
[2017-07-04] MEDS: ARTIFICIAL TEARS OPTH SOLN 15 ML BTL EACH EYE SCH ×3 (06:13→20:47)
[2017-07-04] MEDS: INSULIN ASPART SUPPLEMENTAL SCALE SQ SCH ×3 (06:13→18:00)
[2017-07-04] MEDS: RESP: ALBUTEROL 2.5 MG/IPRATROPIUM 0.5 MG NEB (SCH) NEB ×3 (08:38→20:59)
[2017-07-04] MEDS: BENEPROTEIN POWDER 1 PACK G-TUBE SCH ×3 (09:00→18:00)
[2017-07-04] MEDS: DOCUSATE SODIUM 100 MG/10 ML UDC PO SCH ×2 (09:00→20:45)
[2017-07-04] MEDS: SODIUM CHLORIDE 0.9% FLUSH 5 ML FLUSH IV FLUSH SCH ×2 (09:00→20:46)
[2017-07-04] MEDS: LISINOPRIL 10 MG TAB PO SCH ×2 (09:30→20:45)
[2017-07-04] MEDS: ENOXAPARIN SODIUM 40 MG/0.4 ML SYRINGE SQ SCH (09:30)
[2017-07-04] MEDS: LANSOPRAZOLE SOLUTAB 30 MG TAB NG SCH (09:31)
[2017-07-04] MEDS: CALCIUM/VITAMIN D 250 MG/125 U TAB PO SCH ×3 (09:31→18:00)
[2017-07-04] MEDS: ASPIRIN 325 MG TAB DOBHOFF SCH (09:31)
[2017-07-04] MEDS: CHOLECALCIFEROL (VIT D3) 5000 UNIT CAP PO SCH (09:31)
[2017-07-04] MEDS: INSULIN DETEMIR 100 UNITS/ML VIAL SQ SCH ×2 (09:32→20:46)
[2017-07-05] VITALS (14 sets, daily range): BP systolic 110–165; BP diastolic 53–76; PULSE 75–100; RESP 18–24; TEMP 97.7–98.6; O2SAT 90–100
[2017-07-05] MEDS: RESP: ALBUTEROL 2.5 MG/IPRATROPIUM 0.5 MG NEB (SCH) NEB ×4 (03:55→19:45)
[2017-07-05 04:56] LABS: AUTOMATED NEUTROPHIL # 7.3 TH/MM3 (1.8-7.7); BASOPHIL # 0.1 TH/MM3 (0-0.2); BASOPHIL % 1.2 % (0.0-2.0); EOSINOPHIL # 0.2 TH/MM3 (0-0.4); EOSINOPHIL % 2.4 % (0.0-4.0); HEMATOCRIT 26.2 % (35.0-46.0); HEMOGLOBIN 8.5 GM/DL (11.6-15.3); LYMPH % 16.3 % (9.0-44.0); LYMPHOCYTE # 1.6 TH/MM3 (1.0-4.8); MEAN CELL VOLUME 98.4 FL (80.0-100.0); MEAN CORPUSCULAR HEMOGLOBIN 31.9 PG (27.0-34.0); MEAN CORPUSCULAR HGB CONC 32.5 % (32.0-36.0); MEAN PLATELET VOLUME 9.4 FL (7.0-11.0); MONO % 6.7 % (0.0-8.0); MONOCYTE # 0.7 TH/MM3 (0-0.9); NEUT % 73.4 % (16.0-70.0); PLATELET COUNT 324 TH/MM3 (150-450); RED BLOOD COUNT 2.67 MIL/MM3 (4.00-5.30); RED CELL DISTRIBUTION WIDTH 17.1 % (11.6-17.2); WHITE BLOOD COUNT 9.9 TH/MM3 (4.0-11.0)
[2017-07-05 05:04] LABS: ALBUMIN 2.1 GM/DL (3.4-5.0); ALT (GPT) 27 U/L (10-53); AST (GOT) 33 U/L (15-37); BICARBONATE 27.5 MEQ/L (21.0-32.0); BLOOD UREA NITROGEN 49 MG/DL (7-18); CHLORIDE 110 MEQ/L (98-107); CREATININE 0.41 MG/DL (0.50-1.00); GLOMERULAR FILTRATION RATE 152 ML/MIN (>89); GLUCOSE,RANDOM 176 MG/DL (74-106); MAGNESIUM 2.3 MG/DL (1.5-2.5); SODIUM (NA) 145 MEQ/L (136-145)
[2017-07-05 05:06] LABS: ALKALINE PHOSPHATASE 655 U/L (45-117); PHOSPHORUS 2.9 MG/DL (2.5-4.9); TOTAL BILIRUBIN ADULT 0.3 MG/DL (0.2-1.0); TOTAL PROTEIN 6.9 GM/DL (6.4-8.2)
[2017-07-05] MEDS: ARTIFICIAL TEARS OPTH SOLN 15 ML BTL EACH EYE SCH ×3 (05:31→22:21)
[2017-07-05] MEDS: INSULIN ASPART SUPPLEMENTAL SCALE SQ SCH ×5 (06:00→23:22)
[2017-07-05] MEDS: CALCIUM/VITAMIN D 250 MG/125 U TAB PO SCH ×3 (09:07→17:51)
[2017-07-05] MEDS: ASPIRIN 325 MG TAB DOBHOFF SCH (09:07)
[2017-07-05] MEDS: LANSOPRAZOLE SOLUTAB 30 MG TAB NG SCH (09:08)
[2017-07-05] MEDS: BENEPROTEIN POWDER 1 PACK G-TUBE SCH ×3 (09:08→17:51)
[2017-07-05] MEDS: SODIUM CHLORIDE 0.9% FLUSH 5 ML FLUSH IV FLUSH SCH ×2 (09:08→20:44)
[2017-07-05] MEDS: ENOXAPARIN SODIUM 40 MG/0.4 ML SYRINGE SQ SCH (09:08)
[2017-07-05] MEDS: CHOLECALCIFEROL (VIT D3) 5000 UNIT CAP PO SCH (09:08)
[2017-07-05] MEDS: DOCUSATE SODIUM 100 MG/10 ML UDC PO SCH ×2 (09:08→20:44)
[2017-07-05] MEDS: LISINOPRIL 10 MG TAB PO SCH ×2 (09:08→20:44)
[2017-07-05] MEDS: INSULIN DETEMIR 100 UNITS/ML VIAL SQ SCH ×2 (09:09→20:44)
--- NOTE | 2017-07-05 11:22 | HHI.CCPN ---
Subjective Remarks/Hospital Course 04/24: 76-year-old female with a medical history significant for prior stroke, diabetes mellitus who was admitted with DKA and a hip fracture for which she underwent ORIF on 04/21. Patient developed altered mental status and was last noted to be okay around 5:30 AM. Subsequently there was a change in her mental status and she was noted to not be moving her right side for which stroke alert was called. Head CT showed large left MCA territory ischemic infarct with edema. Patient was transferred to the ICU by family medicine service in the critical care consult was requested. I evaluated the patient following arrival to the ICU. At that time she was laying in bed with her eyes open however not following commands and had a dense right hemiplegia. Patient was also evaluated by Dr. Malave from neurology. I further discussed current event with patient's daughter following her arrival to the ICU. Per the daughter patient has been living with her since her stroke in 2014 and does ambulate however has been having problems with memory and incontinence as well as gait difficulties. She does not feel patient would want intubation or tracheostomy or PEG tube. 04/25: Patient remains encephalopathic, awake though not following commands consistently. Dense right hemiplegia persists. Appears to be awake enough to protect airway currently. Patient's daughter rescinded DNR and made a full code last evening. 04/26: Remains encephalopathic, not following commands. On Dobbhoff for tube feeds at 30 cc per hour. Had urinary retention and drained 2 L of urine after placing Moser catheter today. CT head done this morning with large left MCA territory infarct with left to right midline shift and significant cerebral edema. Hyperglycemia noted. Patient given mannitol earlier for increasing cerebral edema. 04/27: Remains encephalopathic, not following commands. On Dobbhoff tube feeds at 30 cc per hour. When into A. fib with RVR last night which responded with Lopressor 5 mg IV 1 dose. 04/28: Remains encephalopathic, arousable, not following commands. Moves left upper extremity spontaneously. Tolerating Dobbhoff tube feeds. Remains on nasal cannula. 04/29: Encephalopathic, eyes be arousable, moves left upper extremity spontaneously and occasionally opens eyes. Dense right hemiplegia and aphasia persists. On nasal cannula. Dobbhoff tube feeds being advanced. Patient was transfused 1 unit PRBCs yesterday. Urine culture with yeast from yesterday for which fluconazole being started. Had brief run of A. fib with RVR which improved with Lopressor IV, currently in sinus rhythm. 04/30: Worsening hypoxemic respiratory failure, currently on partial nonrebreather. Remains lethargic. WBC count increased from 14.6 today 20.7. Chest x-ray shows bilateral worsening infiltrates and small pleural effusions. Sodium 154, weight up by 8 KG. Albumin 1 mg Bumex 1. Also one dose of albumin. Remains in sinus tachycardia. Tmax 101.3 05/01: Patient was intubated yesterday for lack of airway protection, and severe hypoxemic respiratory failure from aspiration pneumonia involving multiple lobes. Patient is on the vent lethargic, no spontaneous eye opening. Chest x- ray remains unchanged. Remains intermittently febrile Tmax 101.3. WBC count improving 05/02: Remains critically ill with no improvement in mental status. Spiking fever of 101.7. Blood culture and sputum culture with staph aureus sputum also growing GNR, WBC count 22,000 now indicating worsening sepsis. Daughter still requesting aggressive care. Palliative care is following 05/03: S/P large area dominant hemisphere CVA. No neurological improvement. Now with pneumonia (infiltrate, fever, leukocytosis) and appropriate abx coverage. She will have a hard time surviving the hip fx, CVA, and pneumonia. Palliative Care needs to be a mainstay of our plan. 05/04: No improvement in neuro status. Sputum C&S allows us to narrow abx coverage to levaquin alone. Lungs remain quite congested. Enteral nutrition tolerated. 05/05: No improvement in neuro status. Moves left arm spontaneously. Flaccid right side. Unresponsive. Persistent mild hypoglycemia - will cut Levemir 50%. Abdomen more distended, check KUB. 05/06: CT head with massive left MCA infarction and > 1 cm shift in right handed woman. She opens eyes, does not track. 05/07: Patient open eyes. Attempts to respond. Trin[place] speaking. Tolerating tube feeds. Positive bowel movement. Volume overloaded. 05/08: Tmax 99.4. Potassium being replaced. Ultrasound gallbladder currently pending. Transaminases are trending downward. Gently diurese. 05/09: Alk phos decreasing. Remains with good urine output. Neurological status not improving. 05/10: Fixed neuro deficit unchanged. Profound CVA. 05/11: Appears to track with eyes today. No improvement in motor function. Remains very edematous, diuretics doubled. 05/12: Continued thick secretions. Afebrile, leukocytosis resolved. 05/13: CT head with completed left MCA stroke, persistent edema and 5 mm shift away. Does not last long on SBTs - major decision now is trach/PEG. 05/14: Daughter has decided to proceed with trach and PEG. I have been pessimistic with her about chances for a meaningful recovery. 05/15: Plan for trach today. No change in neuro status. Still ventilator dependent. 05/16: Trach completed. Await PEG and disposition. 05/17: PEG placed 05/16. Start TFs today after nutrition consult. Work to place patient. 05/18: No improvement. Does open eyes, no focus or tracking. Completed large dominant (left) hemisphere CVA in right handed woman with severe deficit. Medicaid pending status, [facility] is following. 05/19: no improvements in neuro exam. ready for LTAC. will d/c moser and rectal tubes. 05/20: no changes or improvements. very difficult placement due to patient not [place] citizen. 05/21: no improvements. resting on vent overnight due to distress. 05/22: no neurologic changes. no improvements. attempted T-piece which failed after 10 minutes. 05/23: no improvements. poor prognosis. poor neuro exam. still failing weaning trials. 05/24: no improvements or changes. still failing t-piece trials. 05/25: No acute changes of improvement overnight. Failed CPAP due to apnea, tried again currently tolerating. Neurological exam unchanged. 05/26: No improvement in neurological function. 05/27: Patient has required Moser catheter because of breakdown of skin on upper thighs and groin. Urine has become infected, will treat. 05/28: Some drainage from around trach (placed 2 weeks ago). Will change out trach tube and inspect neck wound. I&O straight cath q6h order entered 05/17. 05/29: No improvement, remains obtunded. Failed CPAP trials yesterday and again today due to apnea. Moser placed due to persistent urinary retention 05/30: Obtunded, unresponsive. Failed SBTs, remains ventilator dependent. 05/31: Patient continues to fail SBT failed yesterday due to apnea. Neuro exam remains unchanged. 06/01: No acute changes overnight, 06/02: no changes. ekg done overnight for ? EKG changes seen on telemetry which were not visualized on EKG. 06/03: no improvements or changes. had long conversation with daughter yesterday. only facility which would accept patient is in [place] and daughter is refusing to allow patient to go there because it is "too far away." Daughter continues to push for aggressive care despite no improvements, and resistant to Hospice. Patient does not need acute inpatient therapy but lacks funding for appropriate disposition. 06/04: No acute events overnight, failed SBT due to apnea. 06/05: No acute events, continues to fail spontaneous breathing trials. Unable to wean 06/06 Currently tolerating CPAP. Will attempt TP today up to 4 hours. No acute events overnight 06/07: Tolerating trach collar/T-piece. Transfer soon. 06/08: Awaiting transfer. 06/09: Remains ventilator dependent. No improvement in neurological function. 06/10: No improvement. Daughter is not attending preplanned meetings to discuss disposition 06/12: Afebrile. Neurologically stable and unchanged. Noted sodium 135. Adding sodium chloride tablets 1 today. Not on free water.. Tolerating tube feeds at goal 45 cc an hour. 06/13: No improvement in neurological function. 06/14: No improvement. Fluid balance correct. Gas exchange acceptable. 06/15: No improvement. Obtunded and unresponsive. 06/16: no improvements in mental status. KUB overnight with dilated small bowel loops. given methylnaltrexone and erythromycin. today abdomen is soft and tolerating tube feeds. 06/17: tolerated t-piece x 6 hours yesterday. rested on cpap overnight. no changes in encephalopathy. 06/18: Currently on ventilator overnight. Multiple bowel movements. Thick yellow secretions noted in ventilator circuit. Opens eyes. 06/19: Afebrile. Tolerating stretcher chair yesterday on PSV. Tolerating tube feeding. Neurologically unchanged. 06/20: Afebrile. Resting in bed in no acute distress in sitting position. Currently on ventilator set sitting. Tolerated stretcher chair/PSV trial 6 hours yesterday. Neurologically unchanged. 06/21: Tmax 100.8. Patient with copious thick yellow secretions. Tolerating tube feeds. Positive bowel movement. Lasted only 1 hour PSV yesterday 06/22: Tmax 99.9. Continues to have thick secretions. Tolerating tube feeding. Positive BM. 06/23: Afebrile. Continues to have thick tracheal secretions from tracheostomy site. Tolerating tube feeding. 3 bowels movements. Opens eyes to stimulation. Stares at you but does not follow commands. 06/24: Remains encephalopathic, on mechanical ventilation via tracheostomy. Tolerating PEG feeds 06/25: Remains encephalopathic on mechanical ventilation. Tolerated C Pap +5 with pressure support +10 all day yesterday. Tolerating PEG feeds. 06/26: No improvement.Vent dependent still. 06/27: Remains encephalopathic, on mech vent via trach. Daily CPAP trials. 06/28: Unable to wean from ventilator. 06/29: Neurologically unchanged. Remains on mechanical ventilation. Daily C Pap trials ongoing. 06/30: Remains encephalopathic. On C Pap overnight. Tolerating tube feeds. 07/01: No change in neurologic status. On mechanical ventilation via tracheostomy. Tolerating tube feeds. 07/02: Remains encephalopathic. No change in neurologic status. On mechanical ventilation via tracheostomy. Daily C Pap trials ongoing. 07/03: Occasional spontaneous eye opening however remains encephalopathic. On mechanical ventilation via tracheostomy. 07/04: Tmax 99.2. Multiple bowel movements overnight. Tolerating tube feeds. On T piece trial at 5 L since noon yesterday. Otherwise neurologically unchanged. Daughter encouraged by movement of left leg. Subjective 07/05: Currently resting in bed on T piece 36 hours. Tolerates chair. No changes neurologically. Positive BM's. Tolerating her tube feeding. Objective Vital Signs Date Time Temp Pulse Resp B/P (MAP) Pulse Ox O2 Delivery O2 Flow Rate FiO2 07/05/17 10:00 95 07/05/17 08:03 90 T-piece 6.00 40 07/05/17 08:00 98.2 22 141/66 (91) Intake and Output 07/05/17 07/05/17 07/06/17 08:00 16:00 00:00 Intake Total 606 ml Output Total 600 ml Balance 6 ml Result Diagram: 07/05/17 0325 07/05/17 0325 Other Results Microbiology Date/Time Source Procedure Growth Status 05/08/17 04:44 Blood Peripheral Aerobic Blood Culture - Final NO GROWTH IN 5 DAYS Complete 05/08/17 04:44 Blood Peripheral Anaerobic Blood Culture - Final NO GROWTH IN 5 DAYS Complete 05/29/17 17:15 Stool Stool Stool Occult Blood (JEFFREY) - Final HEMOCCULT NEGATIVE Complete 06/18/17 10:00 Sputum Endotracheal Gram Stain - Final Complete 06/18/17 10:00 Sputum Culture - Final Serratia Marcescens Staphylococcus Aureus Complete 05/25/17 15:00 Urine Catheterized Urine Urine Culture - Final Citrobacter Freundii Complete Imaging Last Impressions Chest X-Ray 06/24/17 0600 Signed Impressions: Service Date/Time: Saturday, June 24, 2017 06:00 - CONCLUSION: Bilateral patchy infiltrates slightly worsened. Benja Ramsey MD Liver Ultrasound 06/19/17 0000 Signed Impressions: Service Date/Time: June 13:20 - CONCLUSION: 1. Mildly increased echotexture of the liver characteristic of hepatic steatosis. 2. Gallbladder sludge. Obdulio Sam MD Abdomen X-Ray 06/16/17 0000 Signed Impressions: Service Date/Time: Friday, June 16, 2017 04:48 - CONCLUSION: 1. Continued small bowel ileus. There has been no significant change when compared to the prior exam. Toy Duran MD Head CT 05/15/17 0000 Signed Impressions: Service Date/Time: May 19:59 - CONCLUSION: 1. 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 2. No bleed or new/acute infarct. Obdulio Simms MD Gall Bladder Ultrasound 05/08/17 0000 Signed Impressions: Service Date/Time: May 08:23 - CONCLUSION: Focally unremarkable appearance of the gallbladder Obdulio Chun MD Abdomen/Pelvis CT 05/07/17 0000 Signed Impressions: Service Date/Time: Sunday, May 07, 2017 13:23 - CONCLUSION: 1. Large left pneumothorax. 2. Bilateral lower lobe consolidation and bilateral moderate size pleural effusions. 3. Significant soft tissue thickening of the right lateral chest wall and left gluteus muscle. 4. Mild ascites. The findings were called to Dr. Carney. Deangelo Zamora MD Hip and Pelvis X-Ray 05/05/17 0000 Signed Impressions: Service Date/Time: Friday, May 05, 2017 10:59 - CONCLUSION: Left proximal femur trochanteric/subtrochanteric fracture lucency visualized. Postoperative changes. Choco Mustafa MD Chest CT 04/30/17 0000 Signed Impressions: Service Date/Time: Sunday, April 30, 2017 09:20 - CONCLUSION: 1. Bilateral pulmonary infiltrates more pronounced within the lower lobes with tiny bilateral pleural effusions. Material seen filling the lower lobe bronchi bilaterally either related to purulent material or perhaps mucus plugging. Deangelo Wren Jr., MD Carotid Artery Ultrasound 04/24/17 0000 Signed Impressions: Service Date/Time: April 09:45 - CONCLUSION: 1. No hemodynamically significant carotid artery stenosis. Arnie Middleton MD Hip X-Ray 04/21/17 0000 Signed Impressions: Service Date/Time: Friday, April 21, 2017 11:36 - CONCLUSION: Fluoroscopic images during placement of intramedullary siomara left femur. Benja Ramsey MD Objective Remarks Gen: 76-year-old female, resting in bed in no acute distress HEENT: Pupils are 2 mm bilaterally and reactive.. Oropharynx without erythema. No thrush. Neck: Trach site clean and dry. #8 Shiley. Supple. Resp: Transmitted upper airway sounds clear with suctioning/coughing. No wheezing Cardiovascular: RRR. S1, S2. No S4. No murmurs, no JVD. GI/abdomen: Soft, nontender, somewhat protuberant. PEG tube site is clean dry and intact. Extremities: Warm, well perfused. No rash. Stage III sacral decubitus ulcer Neuro: Eyes open with coughing. Dense right hemiplegia. Withdraws left upper extremity, Withdraws LLE and occasionally will spontaneously move left lower extremity. A/P Assessment and Plan Neuro/Psych: Left MCA CVA - 5.5 mm of [id number] subfalcine herniation. right-sided hemiplegia Acute encephalopathy History CVA Continue Aspirin 325 mg by tube daily. On admission, patient was not a candidate for thrombolysis per discussion with neurology and radiology. Repeat head CT 05/15 showed slight improvement in the midline shift now 5.5 mm and mass effect Neurosurgery consulted 04/30- Dr. López, recommended conservative management. Neurology Dr. Malave has followed Cardiovascular: Hypertension As needed Antihypertensives to keep systolic blood pressure less than to 160 mmHg (when necessary IV labetalol and IV hydralazine) Lisinopril 20 mg twice a day to be continued Echocardiogram 04/24 - EF 50 to 55%. Mild concentric LVH. Pulmonary: Acute hypoxic respiratory failure - aspiration possible HCAP - resolved. chronic vent dependent respiratory failure Large left pneumothorax status post #10 Yi chest tube 05/07 - resolved. Chronic respiratory failure, currently on PRVC. 14/450/35 On T piece trial since noon yesterday 06/02 at 5 L Continue slow wean as tolerated Ventilator bundle. Ipratropium/albuterol aerosols every 6 hours with albuterol aerosols every 2 hours Chest tube d/c'd 05/12 GI/liver: Elevated transaminases Hypoalbuminemia Severe protein calorie malnutrition Small bowel ileus- resolving. Hepatitis C antibody positive with negative genotype/viral load Hepatic steatosis Continue PEG tube feeding with Glucerna 1.5 goal 45 cc an hour Lansoprazole 30 mg daily for GI regimen Docusate sodium 100 mg twice a day for bowel regimen Holding polyethylene glycol 17 g twice daily in light of multiple bowel movements Previous CT abdomen/pelvis 05/07 - mild ascites. Large left hemothorax. Right greater than left pleural effusion. Abdominal x-ray 06/16- small bowel ileus liver ultrasound 06/19 revealed hepatic steatosis and gallbladder sludge Endocrine: Diabetes mellitus Detemir 10 units subcutaneous daily. SSI low-dose every 6 hours with 3 units sliding scale past 24 hours Holding glimepiride 4 mg by mouth daily /Renal/FEN: Hyponatremia Strict intake output, monitor and replete electrolytes, follow BUN/creatinine. Moser catheter placed for urinary retention on 04/26. Moser removed 05/19 with q6h straight cath. Moser replaced again due to persistent urinary retention. Follow-up on BMP/magnesium phosphorus in a.m. 06/20 stable Heme: Chronic Rivaroxaban use Leukocytosis Normocytic anemia Thrombocytosis Follow CBC and coags. On subcutaneous enoxaparin 40 mg daily subcutaneous Hemoglobin currently stable. No indications for transfusion of blood proximally at this time ID: MSSA bacteremia - resolved. Serratia/staph aureus pneumonia - resolved. C glabrata UTI - resolved. Citrobacter UTI - resolved. Serratia/MSSA sputum VAP Pertinent cultures Urine culture 04/26/17 sofie glabrata Blood culture 04/29/17 1 out of 4 bottles staph aureus Sputum culture 04/30/17 MSSA and Serratia. urine 05/07-> Serratia, treated. Urine 05/25: Citrobacter Ceftriaxone started 05/26, changed to Cefepime 05/27 based on sensitivity, stopped 06/03/17 Started on piperacillin/tazobactam and vancomycin 06/21 times 8 days for VAP. This is been completed Vancomycin discontinued 06/23 MSK: Left Intertroch Hip Fx s/p IMN Vitamin D deficiency stage III decubitus ulcer Continue calcium vitamin D 250/125 one tablet 3x a day and cholecalciferol 5000 units daily. PT/OT evaluate and treat Maxsorb every 3 days/dressing changes every 3 days per wound care Continue bene protein one packet 3x a day Prophylaxis: SCDs. Enoxaparin 40 mg subcutaneous daily-cleared by Dr. Malave. GI - lansoprazole 30 mg by PEG tube daily Overall impression: No change. Continue efforts with SBTs. Level II follow-up Sal Carney MD Jul 05, 2017 11:22
[2017-07-05] MEDS: RESP: ALBUTEROL 2.5 MG/3 ML NEB (PRN) NEB (23:25)
[2017-07-06] VITALS (12 sets, daily range): BP systolic 127–176; BP diastolic 60–83; PULSE 82–110; RESP 17–23; TEMP 97.8–98.9; O2SAT 96–100
[2017-07-06] MEDS: hydrALAZINE HCL 20 MG/ML VIAL IV PUSH PRN (00:44)
[2017-07-06] MEDS: RESP: ALBUTEROL 2.5 MG/IPRATROPIUM 0.5 MG NEB (SCH) NEB ×4 (03:07→20:46)
[2017-07-06] MEDS: INSULIN ASPART SUPPLEMENTAL SCALE SQ SCH ×4 (05:26→23:05)
[2017-07-06] MEDS: ARTIFICIAL TEARS OPTH SOLN 15 ML BTL EACH EYE SCH ×3 (05:26→22:00)
--- NOTE | 2017-07-06 05:58 | RADRPT ---
EXAM DATE/TIME: 07/06/2017 04:24 [facility] COMPARISON: CHEST SINGLE AP, June 24, 2017, 6:00. INDICATIONS : Respiratory failure. MEDICAL HISTORY : None. SURGICAL HISTORY : None. ENCOUNTER: Subsequent ACUITY: 3 days PAIN SCORE: Non-responsive. LOCATION: Bilateral chest FINDINGS: Single AP view of the chest. Tracheostomy tube remains in place. Interval development of extensive bi lateral pulmonary parenchymal opacity with most confluence at the lower lung zones and right upper arpita ng zone. Small to moderate sized bilateral pleural effusions. CONCLUSION: New bilateral extensive pulmonary parenchymal opacity indicating consolidation versus pulmonary edema . Small to moderate sized bilateral pleural effusions. Robert Knox MD on July 06, 2017 at 5:55 Board Certified Radiologist. This report was verified electronically.
--- NOTE | 2017-07-06 07:11 | HHI.CCPN ---
Subjective Remarks/Hospital Course 04/24: 76-year-old female with a medical history significant for prior stroke, diabetes mellitus who was admitted with DKA and a hip fracture for which she underwent ORIF on 04/21. Patient developed altered mental status and was last noted to be okay around 5:30 AM. Subsequently there was a change in her mental status and she was noted to not be moving her right side for which stroke alert was called. Head CT showed large left MCA territory ischemic infarct with edema. Patient was transferred to the ICU by family medicine service in the critical care consult was requested. I evaluated the patient following arrival to the ICU. At that time she was laying in bed with her eyes open however not following commands and had a dense right hemiplegia. Patient was also evaluated by Dr. Malave from neurology. I further discussed current event with patient's daughter following her arrival to the ICU. Per the daughter patient has been living with her since her stroke in 2014 and does ambulate however has been having problems with memory and incontinence as well as gait difficulties. She does not feel patient would want intubation or tracheostomy or PEG tube. 04/25: Patient remains encephalopathic, awake though not following commands consistently. Dense right hemiplegia persists. Appears to be awake enough to protect airway currently. Patient's daughter rescinded DNR and made a full code last evening. 04/26: Remains encephalopathic, not following commands. On Dobbhoff for tube feeds at 30 cc per hour. Had urinary retention and drained 2 L of urine after placing Moser catheter today. CT head done this morning with large left MCA territory infarct with left to right midline shift and significant cerebral edema. Hyperglycemia noted. Patient given mannitol earlier for increasing cerebral edema. 04/27: Remains encephalopathic, not following commands. On Dobbhoff tube feeds at 30 cc per hour. When into A. fib with RVR last night which responded with Lopressor 5 mg IV 1 dose. 04/28: Remains encephalopathic, arousable, not following commands. Moves left upper extremity spontaneously. Tolerating Dobbhoff tube feeds. Remains on nasal cannula. 04/29: Encephalopathic, eyes be arousable, moves left upper extremity spontaneously and occasionally opens eyes. Dense right hemiplegia and aphasia persists. On nasal cannula. Dobbhoff tube feeds being advanced. Patient was transfused 1 unit PRBCs yesterday. Urine culture with yeast from yesterday for which fluconazole being started. Had brief run of A. fib with RVR which improved with Lopressor IV, currently in sinus rhythm. 04/30: Worsening hypoxemic respiratory failure, currently on partial nonrebreather. Remains lethargic. WBC count increased from 14.6 today 20.7. Chest x-ray shows bilateral worsening infiltrates and small pleural effusions. Sodium 154, weight up by 8 KG. Albumin 1 mg Bumex 1. Also one dose of albumin. Remains in sinus tachycardia. Tmax 101.3 05/01: Patient was intubated yesterday for lack of airway protection, and severe hypoxemic respiratory failure from aspiration pneumonia involving multiple lobes. Patient is on the vent lethargic, no spontaneous eye opening. Chest x- ray remains unchanged. Remains intermittently febrile Tmax 101.3. WBC count improving 05/02: Remains critically ill with no improvement in mental status. Spiking fever of 101.7. Blood culture and sputum culture with staph aureus sputum also growing GNR, WBC count 22,000 now indicating worsening sepsis. Daughter still requesting aggressive care. Palliative care is following 05/03: S/P large area dominant hemisphere CVA. No neurological improvement. Now with pneumonia (infiltrate, fever, leukocytosis) and appropriate abx coverage. She will have a hard time surviving the hip fx, CVA, and pneumonia. Palliative Care needs to be a mainstay of our plan. 05/04: No improvement in neuro status. Sputum C&S allows us to narrow abx coverage to levaquin alone. Lungs remain quite congested. Enteral nutrition tolerated. 05/05: No improvement in neuro status. Moves left arm spontaneously. Flaccid right side. Unresponsive. Persistent mild hypoglycemia - will cut Levemir 50%. Abdomen more distended, check KUB. 05/06: CT head with massive left MCA infarction and > 1 cm shift in right handed woman. She opens eyes, does not track. 05/07: Patient open eyes. Attempts to respond. Gabonese speaking. Tolerating tube feeds. Positive bowel movement. Volume overloaded. 05/08: Tmax 99.4. Potassium being replaced. Ultrasound gallbladder currently pending. Transaminases are trending downward. Gently diurese. 05/09: Alk phos decreasing. Remains with good urine output. Neurological status not improving. 05/10: Fixed neuro deficit unchanged. Profound CVA. 05/11: Appears to track with eyes today. No improvement in motor function. Remains very edematous, diuretics doubled. 05/12: Continued thick secretions. Afebrile, leukocytosis resolved. 05/13: CT head with completed left MCA stroke, persistent edema and 5 mm shift away. Does not last long on SBTs - major decision now is trach/PEG. 05/14: Daughter has decided to proceed with trach and PEG. I have been pessimistic with her about chances for a meaningful recovery. 05/15: Plan for trach today. No change in neuro status. Still ventilator dependent. 05/16: Trach completed. Await PEG and disposition. 05/17: PEG placed 05/16. Start TFs today after nutrition consult. Work to place patient. 05/18: No improvement. Does open eyes, no focus or tracking. Completed large dominant (left) hemisphere CVA in right handed woman with severe deficit. Medicaid pending status, [facility] is following. 05/19: no improvements in neuro exam. ready for LTAC. will d/c moser and rectal tubes. 05/20: no changes or improvements. very difficult placement due to patient not [place] citizen. 05/21: no improvements. resting on vent overnight due to distress. 05/22: no neurologic changes. no improvements. attempted T-piece which failed after 10 minutes. 05/23: no improvements. poor prognosis. poor neuro exam. still failing weaning trials. 05/24: no improvements or changes. still failing t-piece trials. 05/25: No acute changes of improvement overnight. Failed CPAP due to apnea, tried again currently tolerating. Neurological exam unchanged. 05/26: No improvement in neurological function. 05/27: Patient has required Moser catheter because of breakdown of skin on upper thighs and groin. Urine has become infected, will treat. 05/28: Some drainage from around trach (placed 2 weeks ago). Will change out trach tube and inspect neck wound. I&O straight cath q6h order entered 05/17. 05/29: No improvement, remains obtunded. Failed CPAP trials yesterday and again today due to apnea. Moser placed due to persistent urinary retention 05/30: Obtunded, unresponsive. Failed SBTs, remains ventilator dependent. 05/31: Patient continues to fail SBT failed yesterday due to apnea. Neuro exam remains unchanged. 06/01: No acute changes overnight, 06/02: no changes. ekg done overnight for ? EKG changes seen on telemetry which were not visualized on EKG. 06/03: no improvements or changes. had long conversation with daughter yesterday. only facility which would accept patient is in [place] and daughter is refusing to allow patient to go there because it is "too far away." Daughter continues to push for aggressive care despite no improvements, and resistant to Hospice. Patient does not need acute inpatient therapy but lacks funding for appropriate disposition. 06/04: No acute events overnight, failed SBT due to apnea. 06/05: No acute events, continues to fail spontaneous breathing trials. Unable to wean 06/06 Currently tolerating CPAP. Will attempt TP today up to 4 hours. No acute events overnight 06/07: Tolerating trach collar/T-piece. Transfer soon. 06/08: Awaiting transfer. 06/09: Remains ventilator dependent. No improvement in neurological function. 06/10: No improvement. Daughter is not attending preplanned meetings to discuss disposition 06/12: Afebrile. Neurologically stable and unchanged. Noted sodium 135. Adding sodium chloride tablets 1 today. Not on free water.. Tolerating tube feeds at goal 45 cc an hour. 06/13: No improvement in neurological function. 06/14: No improvement. Fluid balance correct. Gas exchange acceptable. 06/15: No improvement. Obtunded and unresponsive. 06/16: no improvements in mental status. KUB overnight with dilated small bowel loops. given methylnaltrexone and erythromycin. today abdomen is soft and tolerating tube feeds. 06/17: tolerated t-piece x 6 hours yesterday. rested on cpap overnight. no changes in encephalopathy. 06/18: Currently on ventilator overnight. Multiple bowel movements. Thick yellow secretions noted in ventilator circuit. Opens eyes. 06/19: Afebrile. Tolerating stretcher chair yesterday on PSV. Tolerating tube feeding. Neurologically unchanged. 06/20: Afebrile. Resting in bed in no acute distress in sitting position. Currently on ventilator set sitting. Tolerated stretcher chair/PSV trial 6 hours yesterday. Neurologically unchanged. 06/21: Tmax 100.8. Patient with copious thick yellow secretions. Tolerating tube feeds. Positive bowel movement. Lasted only 1 hour PSV yesterday 06/22: Tmax 99.9. Continues to have thick secretions. Tolerating tube feeding. Positive BM. 06/23: Afebrile. Continues to have thick tracheal secretions from tracheostomy site. Tolerating tube feeding. 3 bowels movements. Opens eyes to stimulation. Stares at you but does not follow commands. 06/24: Remains encephalopathic, on mechanical ventilation via tracheostomy. Tolerating PEG feeds 06/25: Remains encephalopathic on mechanical ventilation. Tolerated C Pap +5 with pressure support +10 all day yesterday. Tolerating PEG feeds. 06/26: No improvement.Vent dependent still. 06/27: Remains encephalopathic, on mech vent via trach. Daily CPAP trials. 06/28: Unable to wean from ventilator. 06/29: Neurologically unchanged. Remains on mechanical ventilation. Daily C Pap trials ongoing. 06/30: Remains encephalopathic. On C Pap overnight. Tolerating tube feeds. 07/01: No change in neurologic status. On mechanical ventilation via tracheostomy. Tolerating tube feeds. 07/02: Remains encephalopathic. No change in neurologic status. On mechanical ventilation via tracheostomy. Daily C Pap trials ongoing. 07/03: Occasional spontaneous eye opening however remains encephalopathic. On mechanical ventilation via tracheostomy. 07/04: Tmax 99.2. Multiple bowel movements overnight. Tolerating tube feeds. On T piece trial at 5 L since noon yesterday. Otherwise neurologically unchanged. Daughter encouraged by movement of left leg. Subjective 07/05: Currently resting in bed on T piece 36 hours. Tolerates chair. No changes neurologically. Positive BM's. Tolerating her tube feeding. 07/06: Continue T-piece trials, if tolerated consider transfer to floor. Objective Vital Signs Date Time Temp Pulse Resp B/P (MAP) Pulse Ox O2 Delivery O2 Flow Rate FiO2 07/06/17 06:00 102 07/06/17 04:00 40 07/06/17 04:00 98.1 17 153/71 (98) 100 07/05/17 19:45 T-piece 07/05/17 08:03 6.00 Intake and Output 07/06/17 07/06/17 07/07/17 08:00 16:00 00:00 Intake Total 930 ml Output Total 925 ml Balance 5 ml Result Diagram: 07/05/17 0325 07/05/17 032 Imaging Last Impressions Chest X-Ray 06/24/17 0600 Signed Impressions: Service Date/Time: Saturday, June 24, 2017 06:00 - CONCLUSION: Bilateral patchy infiltrates slightly worsened. Benja Ramsey MD Liver Ultrasound 06/19/17 0000 Signed Impressions: Service Date/Time: June 13:20 - CONCLUSION: 1. Mildly increased echotexture of the liver characteristic of hepatic steatosis. 2. Gallbladder sludge. Obdulio Sam MD Abdomen X-Ray 06/16/17 0000 Signed Impressions: Service Date/Time: Friday, June 16, 2017 04:48 - CONCLUSION: 1. Continued small bowel ileus. There has been no significant change when compared to the prior exam. Toy Duran MD Head CT 05/15/17 0000 Signed Impressions: Service Date/Time: May 19:59 - CONCLUSION: 1. 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 2. No bleed or new/acute infarct. Obdulio Simms MD Gall Bladder Ultrasound 05/08/17 0000 Signed Impressions: Service Date/Time: May 08:23 - CONCLUSION: Focally unremarkable appearance of the gallbladder Obdulio Chun MD Abdomen/Pelvis CT 05/07/17 0000 Signed Impressions: Service Date/Time: Sunday, May 07, 2017 13:23 - CONCLUSION: 1. Large left pneumothorax. 2. Bilateral lower lobe consolidation and bilateral moderate size pleural effusions. 3. Significant soft tissue thickening of the right lateral chest wall and left gluteus muscle. 4. Mild ascites. The findings were called to Dr. Carney. Deangelo Zamora MD Hip and Pelvis X-Ray 05/05/17 0000 Signed Impressions: Service Date/Time: Friday, May 05, 2017 10:59 - CONCLUSION: Left proximal femur trochanteric/subtrochanteric fracture lucency visualized. Postoperative changes. Choco Mustafa MD Chest CT 04/30/17 0000 Signed Impressions: Service Date/Time: Sunday, April 30, 2017 09:20 - CONCLUSION: 1. Bilateral pulmonary infiltrates more pronounced within the lower lobes with tiny bilateral pleural effusions. Material seen filling the lower lobe bronchi bilaterally either related to purulent material or perhaps mucus plugging. Deangelo Wren Jr., MD Carotid Artery Ultrasound 04/24/17 0000 Signed Impressions: Service Date/Time: April 09:45 - CONCLUSION: 1. No hemodynamically significant carotid artery stenosis. Arnie Middleton MD Hip X-Ray 04/21/17 0000 Signed Impressions: Service Date/Time: Friday, April 21, 2017 11:36 - CONCLUSION: Fluoroscopic images during placement of intramedullary siomara left femur. Benja Ramsey MD Objective Remarks Gen: 76-year-old female, resting in bed in no acute distress HEENT: Pupils are 2 mm bilaterally and reactive.. Oropharynx without erythema. No thrush. Neck: Trach site clean and dry. #8 Shiley. Supple. Resp: Transmitted upper airway sounds clear with suctioning/coughing. No wheezing. Acceptable excursions. Cardiovascular: RRR. S1, S2. No S4. No murmurs, no JVD. GI/abdomen: Soft, nontender, nondistended. PEG tube site is clean dry and intact. Extremities: Warm, well perfused. No rash. Stage III sacral decubitus ulcer Neuro: Eyes open with coughing. Dense right hemiplegia. Withdraws left upper extremity, Withdraws LLE and occasionally will spontaneously move left lower extremity. A/P Assessment and Plan Neuro/Psych: Left MCA CVA - 5.5 mm of [id number] subfalcine herniation. right-sided hemiplegia Acute encephalopathy History CVA Continue Aspirin 325 mg by tube daily. On admission, patient was not a candidate for thrombolysis per discussion with neurology and radiology. Repeat head CT 05/15 showed slight improvement in the midline shift now 5.5 mm and mass effect Neurosurgery consulted 04/30- Dr. López, recommended conservative management. Neurology Dr. Malave has followed Cardiovascular: Hypertension As needed Antihypertensives to keep systolic blood pressure less than to 160 mmHg (when necessary IV labetalol and IV hydralazine) Lisinopril 20 mg twice a day to be continued Echocardiogram 04/24 - EF 50 to 55%. Mild concentric LVH. Pulmonary: Acute hypoxic respiratory failure - aspiration possible HCAP - resolved. chronic vent dependent respiratory failure Large left pneumothorax status post #10 Setswana chest tube 05/07 - resolved. Chronic respiratory failure, currently on PRVC. 450/35 On T piece trial since noon yesterday 06/02 at 5 L Continue slow wean as tolerated Ventilator bundle. Ipratropium/albuterol aerosols every 6 hours with albuterol aerosols every 2 hours Chest tube d/c'd 05/12 GI/liver: Elevated transaminases Hypoalbuminemia Severe protein calorie malnutrition Small bowel ileus- resolving. Hepatitis C antibody positive with negative genotype/viral load Hepatic steatosis Continue PEG tube feeding with Glucerna 1.5 goal 45 cc an hour Lansoprazole 30 mg daily for GI regimen Docusate sodium 100 mg twice a day for bowel regimen Holding polyethylene glycol 17 g twice daily in light of multiple bowel movements Previous CT abdomen/pelvis 05/07 - mild ascites. Large left hemothorax. Right greater than left pleural effusion. Abdominal x-ray 06/16- small bowel ileus liver ultrasound 06/19 revealed hepatic steatosis and gallbladder sludge Endocrine: Diabetes mellitus Detemir 10 units subcutaneous daily. SSI low-dose every 6 hours with 3 units sliding scale past 24 hours Holding glimepiride 4 mg by mouth daily /Renal/FEN: Hyponatremia Strict intake output, monitor and replete electrolytes, follow BUN/creatinine. Moser catheter placed for urinary retention on 04/26. Moser removed 05/19 with q6h straight cath. Moser replaced again due to persistent urinary retention. Follow-up on BMP/magnesium phosphorus in a.m. 06/20 stable Heme: Chronic Rivaroxaban use Leukocytosis Normocytic anemia Thrombocytosis Follow CBC and coags. On subcutaneous enoxaparin 40 mg daily subcutaneous Hemoglobin currently stable. No indications for transfusion of blood proximally at this time ID: MSSA bacteremia - resolved. Serratia/staph aureus pneumonia - resolved. C glabrata UTI - resolved. Citrobacter UTI - resolved. Serratia/MSSA sputum VAP Pertinent cultures Urine culture 04/26/17 sofie glabrata Blood culture 04/29/17 1 out of 4 bottles staph aureus Sputum culture 04/30/17 MSSA and Serratia. urine 05/07-> Serratia, treated. Urine 05/25: Citrobacter Ceftriaxone started 05/26, changed to Cefepime 05/27 based on sensitivity, stopped 06/03/17 Started on piperacillin/tazobactam and vancomycin 06/21 times 8 days for VAP. This is been completed Vancomycin discontinued 06/23 MSK: Left Intertroch Hip Fx s/p IMN Vitamin D deficiency stage III decubitus ulcer Continue calcium vitamin D 250/125 one tablet 3x a day and cholecalciferol 5000 units daily. PT/OT evaluate and treat Maxsorb every 3 days/dressing changes every 3 days per wound care Continue bene protein one packet 3x a day Prophylaxis: SCDs. Enoxaparin 40 mg subcutaneous daily-cleared by Dr. Malave. GI - lansoprazole 30 mg by PEG tube daily Overall impression: No change. Continue efforts with SBTs. Charles Pedraza MD Jul 06, 2017 07:11
[2017-07-06] MEDS: LANSOPRAZOLE SOLUTAB 30 MG TAB NG SCH (08:59)
[2017-07-06] MEDS: ASPIRIN 325 MG TAB DOBHOFF SCH (08:59)
[2017-07-06] MEDS: ENOXAPARIN SODIUM 40 MG/0.4 ML SYRINGE SQ SCH (08:59)
[2017-07-06] MEDS: CHOLECALCIFEROL (VIT D3) 5000 UNIT CAP PO SCH (08:59)
[2017-07-06] MEDS: LISINOPRIL 10 MG TAB PO SCH ×2 (08:59→20:27)
[2017-07-06] MEDS: BENEPROTEIN POWDER 1 PACK G-TUBE SCH ×3 (08:59→18:00)
[2017-07-06] MEDS: CALCIUM/VITAMIN D 250 MG/125 U TAB PO SCH ×3 (08:59→18:00)
[2017-07-06] MEDS: SODIUM CHLORIDE 0.9% FLUSH 5 ML FLUSH IV FLUSH SCH ×2 (08:59→20:27)
[2017-07-06] MEDS: DOCUSATE SODIUM 100 MG/10 ML UDC PO SCH ×2 (09:00→20:26)
[2017-07-06] MEDS: INSULIN DETEMIR 100 UNITS/ML VIAL SQ SCH ×2 (09:00→20:27)
[2017-07-06] MEDS: RESP: ALBUTEROL 2.5 MG/3 ML NEB (PRN) NEB (23:51)
[2017-07-07] VITALS (16 sets, daily range): BP systolic 131–164; BP diastolic 65–88; PULSE 88–104; RESP 20–26; TEMP 96.8–98.7; O2SAT 93–100
[2017-07-07] MEDS: hydrALAZINE HCL 20 MG/ML VIAL IV PUSH PRN (04:12)
[2017-07-07] MEDS: RESP: ALBUTEROL 2.5 MG/IPRATROPIUM 0.5 MG NEB (SCH) NEB ×4 (04:13→21:12)
[2017-07-07] MEDS: ARTIFICIAL TEARS OPTH SOLN 15 ML BTL EACH EYE SCH ×3 (06:00→22:21)
[2017-07-07] MEDS: INSULIN ASPART SUPPLEMENTAL SCALE SQ SCH ×3 (06:00→18:00)
--- NOTE | 2017-07-07 07:41 | HHI.CCPN ---
Subjective Remarks/Hospital Course 04/24: 76-year-old female with a medical history significant for prior stroke, diabetes mellitus who was admitted with DKA and a hip fracture for which she underwent ORIF on 04/21. Patient developed altered mental status and was last noted to be okay around 5:30 AM. Subsequently there was a change in her mental status and she was noted to not be moving her right side for which stroke alert was called. Head CT showed large left MCA territory ischemic infarct with edema. Patient was transferred to the ICU by family medicine service in the critical care consult was requested. I evaluated the patient following arrival to the ICU. At that time she was laying in bed with her eyes open however not following commands and had a dense right hemiplegia. Patient was also evaluated by Dr. Malave from neurology. I further discussed current event with patient's daughter following her arrival to the ICU. Per the daughter patient has been living with her since her stroke in 2014 and does ambulate however has been having problems with memory and incontinence as well as gait difficulties. She does not feel patient would want intubation or tracheostomy or PEG tube. 04/25: Patient remains encephalopathic, awake though not following commands consistently. Dense right hemiplegia persists. Appears to be awake enough to protect airway currently. Patient's daughter rescinded DNR and made a full code last evening. 04/26: Remains encephalopathic, not following commands. On Dobbhoff for tube feeds at 30 cc per hour. Had urinary retention and drained 2 L of urine after placing Moser catheter today. CT head done this morning with large left MCA territory infarct with left to right midline shift and significant cerebral edema. Hyperglycemia noted. Patient given mannitol earlier for increasing cerebral edema. 04/27: Remains encephalopathic, not following commands. On Dobbhoff tube feeds at 30 cc per hour. When into A. fib with RVR last night which responded with Lopressor 5 mg IV 1 dose. 04/28: Remains encephalopathic, arousable, not following commands. Moves left upper extremity spontaneously. Tolerating Dobbhoff tube feeds. Remains on nasal cannula. 04/29: Encephalopathic, eyes be arousable, moves left upper extremity spontaneously and occasionally opens eyes. Dense right hemiplegia and aphasia persists. On nasal cannula. Dobbhoff tube feeds being advanced. Patient was transfused 1 unit PRBCs yesterday. Urine culture with yeast from yesterday for which fluconazole being started. Had brief run of A. fib with RVR which improved with Lopressor IV, currently in sinus rhythm. 04/30: Worsening hypoxemic respiratory failure, currently on partial nonrebreather. Remains lethargic. WBC count increased from 14.6 today 20.7. Chest x-ray shows bilateral worsening infiltrates and small pleural effusions. Sodium 154, weight up by 8 KG. Albumin 1 mg Bumex 1. Also one dose of albumin. Remains in sinus tachycardia. Tmax 101.3 05/01: Patient was intubated yesterday for lack of airway protection, and severe hypoxemic respiratory failure from aspiration pneumonia involving multiple lobes. Patient is on the vent lethargic, no spontaneous eye opening. Chest x- ray remains unchanged. Remains intermittently febrile Tmax 101.3. WBC count improving 05/02: Remains critically ill with no improvement in mental status. Spiking fever of 101.7. Blood culture and sputum culture with staph aureus sputum also growing GNR, WBC count 22,000 now indicating worsening sepsis. Daughter still requesting aggressive care. Palliative care is following 05/03: S/P large area dominant hemisphere CVA. No neurological improvement. Now with pneumonia (infiltrate, fever, leukocytosis) and appropriate abx coverage. She will have a hard time surviving the hip fx, CVA, and pneumonia. Palliative Care needs to be a mainstay of our plan. 05/04: No improvement in neuro status. Sputum C&S allows us to narrow abx coverage to levaquin alone. Lungs remain quite congested. Enteral nutrition tolerated. 05/05: No improvement in neuro status. Moves left arm spontaneously. Flaccid right side. Unresponsive. Persistent mild hypoglycemia - will cut Levemir 50%. Abdomen more distended, check KUB. 05/06: CT head with massive left MCA infarction and > 1 cm shift in right handed woman. She opens eyes, does not track. 05/07: Patient open eyes. Attempts to respond. [place] speaking. Tolerating tube feeds. Positive bowel movement. Volume overloaded. 05/08: Tmax 99.4. Potassium being replaced. Ultrasound gallbladder currently pending. Transaminases are trending downward. Gently diurese. 05/09: Alk phos decreasing. Remains with good urine output. Neurological status not improving. 05/10: Fixed neuro deficit unchanged. Profound CVA. 05/11: Appears to track with eyes today. No improvement in motor function. Remains very edematous, diuretics doubled. 05/12: Continued thick secretions. Afebrile, leukocytosis resolved. 05/13: CT head with completed left MCA stroke, persistent edema and 5 mm shift away. Does not last long on SBTs - major decision now is trach/PEG. 05/14: Daughter has decided to proceed with trach and PEG. I have been pessimistic with her about chances for a meaningful recovery. 05/15: Plan for trach today. No change in neuro status. Still ventilator dependent. 05/16: Trach completed. Await PEG and disposition. 05/17: PEG placed 05/16. Start TFs today after nutrition consult. Work to place patient. 05/18: No improvement. Does open eyes, no focus or tracking. Completed large dominant (left) hemisphere CVA in right handed woman with severe deficit. Medicaid pending status, [facility] is following. 05/19: no improvements in neuro exam. ready for LTAC. will d/c moser and rectal tubes. 05/20: no changes or improvements. very difficult placement due to patient not [place] citizen. 05/21: no improvements. resting on vent overnight due to distress. 05/22: no neurologic changes. no improvements. attempted T-piece which failed after 10 minutes. 05/23: no improvements. poor prognosis. poor neuro exam. still failing weaning trials. 05/24: no improvements or changes. still failing t-piece trials. 05/25: No acute changes of improvement overnight. Failed CPAP due to apnea, tried again currently tolerating. Neurological exam unchanged. 05/26: No improvement in neurological function. 05/27: Patient has required Moser catheter because of breakdown of skin on upper thighs and groin. Urine has become infected, will treat. 05/28: Some drainage from around trach (placed 2 weeks ago). Will change out trach tube and inspect neck wound. I&O straight cath q6h order entered 05/17. 05/29: No improvement, remains obtunded. Failed CPAP trials yesterday and again today due to apnea. Moser placed due to persistent urinary retention 05/30: Obtunded, unresponsive. Failed SBTs, remains ventilator dependent. 05/31: Patient continues to fail SBT failed yesterday due to apnea. Neuro exam remains unchanged. 06/01: No acute changes overnight, 06/02: no changes. ekg done overnight for ? EKG changes seen on telemetry which were not visualized on EKG. 06/03: no improvements or changes. had long conversation with daughter yesterday. only facility which would accept patient is in [place] and daughter is refusing to allow patient to go there because it is "too far away." Daughter continues to push for aggressive care despite no improvements, and resistant to Hospice. Patient does not need acute inpatient therapy but lacks funding for appropriate disposition. 06/04: No acute events overnight, failed SBT due to apnea. 06/05: No acute events, continues to fail spontaneous breathing trials. Unable to wean 06/06 Currently tolerating CPAP. Will attempt TP today up to 4 hours. No acute events overnight 06/07: Tolerating trach collar/T-piece. Transfer soon. 06/08: Awaiting transfer. 06/09: Remains ventilator dependent. No improvement in neurological function. 06/10: No improvement. Daughter is not attending preplanned meetings to discuss disposition 06/12: Afebrile. Neurologically stable and unchanged. Noted sodium 135. Adding sodium chloride tablets 1 today. Not on free water.. Tolerating tube feeds at goal 45 cc an hour. 06/13: No improvement in neurological function. 06/14: No improvement. Fluid balance correct. Gas exchange acceptable. 06/15: No improvement. Obtunded and unresponsive. 06/16: no improvements in mental status. KUB overnight with dilated small bowel loops. given methylnaltrexone and erythromycin. today abdomen is soft and tolerating tube feeds. 06/17: tolerated t-piece x 6 hours yesterday. rested on cpap overnight. no changes in encephalopathy. 06/18: Currently on ventilator overnight. Multiple bowel movements. Thick yellow secretions noted in ventilator circuit. Opens eyes. 06/19: Afebrile. Tolerating stretcher chair yesterday on PSV. Tolerating tube feeding. Neurologically unchanged. 06/20: Afebrile. Resting in bed in no acute distress in sitting position. Currently on ventilator set sitting. Tolerated stretcher chair/PSV trial 6 hours yesterday. Neurologically unchanged. 06/21: Tmax 100.8. Patient with copious thick yellow secretions. Tolerating tube feeds. Positive bowel movement. Lasted only 1 hour PSV yesterday 06/22: Tmax 99.9. Continues to have thick secretions. Tolerating tube feeding. Positive BM. 06/23: Afebrile. Continues to have thick tracheal secretions from tracheostomy site. Tolerating tube feeding. 3 bowels movements. Opens eyes to stimulation. Stares at you but does not follow commands. 06/24: Remains encephalopathic, on mechanical ventilation via tracheostomy. Tolerating PEG feeds 06/25: Remains encephalopathic on mechanical ventilation. Tolerated C Pap +5 with pressure support +10 all day yesterday. Tolerating PEG feeds. 06/26: No improvement.Vent dependent still. 06/27: Remains encephalopathic, on mech vent via trach. Daily CPAP trials. 06/28: Unable to wean from ventilator. 06/29: Neurologically unchanged. Remains on mechanical ventilation. Daily C Pap trials ongoing. 06/30: Remains encephalopathic. On C Pap overnight. Tolerating tube feeds. 07/01: No change in neurologic status. On mechanical ventilation via tracheostomy. Tolerating tube feeds. 07/02: Remains encephalopathic. No change in neurologic status. On mechanical ventilation via tracheostomy. Daily C Pap trials ongoing. 07/03: Occasional spontaneous eye opening however remains encephalopathic. On mechanical ventilation via tracheostomy. 07/04: Tmax 99.2. Multiple bowel movements overnight. Tolerating tube feeds. On T piece trial at 5 L since noon yesterday. Otherwise neurologically unchanged. Daughter encouraged by movement of left leg. Subjective 07/05: Currently resting in bed on T piece 36 hours. Tolerates chair. No changes neurologically. Positive BM's. Tolerating her tube feeding. 07/06: Continue T-piece trials, if tolerated consider transfer to floor. 07/07: Extended T-piece trial. Plan transfer to floor. Objective Vital Signs Date Time Temp Pulse Resp B/P (MAP) Pulse Ox O2 Delivery O2 Flow Rate FiO2 07/07/17 06:00 102 07/07/17 05:15 93 T-piece 70 07/07/17 04:00 98.3 22 164/78 (106) 07/05/17 08:03 6.00 Intake and Output 07/07/17 07/07/17 07/08/17 08:00 16:00 00:00 Intake Total 854 ml Output Total 1075 ml Balance -221 ml Result Diagram: 07/05/17 0325 07/05/17 0325 Imaging Last Impressions Chest X-Ray 06/24/17 0600 Signed Impressions: Service Date/Time: Saturday, June 24, 2017 06:00 - CONCLUSION: Bilateral patchy infiltrates slightly worsened. Benja Ramsey MD Liver Ultrasound 06/19/17 0000 Signed Impressions: Service Date/Time: June 13:20 - CONCLUSION: 1. Mildly increased echotexture of the liver characteristic of hepatic steatosis. 2. Gallbladder sludge. Obdulio Sam MD Abdomen X-Ray 06/16/17 0000 Signed Impressions: Service Date/Time: Friday, June 16, 2017 04:48 - CONCLUSION: 1. Continued small bowel ileus. There has been no significant change when compared to the prior exam. Toy Duran MD Head CT 05/15/17 0000 Signed Impressions: Service Date/Time: May 19:59 - CONCLUSION: 1. 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 2. No bleed or new/acute infarct. Obdulio Simms MD Gall Bladder Ultrasound 05/08/17 0000 Signed Impressions: Service Date/Time: May 08:23 - CONCLUSION: Focally unremarkable appearance of the gallbladder Obdulio Chun MD Abdomen/Pelvis CT 05/07/17 0000 Signed Impressions: Service Date/Time: Sunday, May 07, 2017 13:23 - CONCLUSION: 1. Large left pneumothorax. 2. Bilateral lower lobe consolidation and bilateral moderate size pleural effusions. 3. Significant soft tissue thickening of the right lateral chest wall and left gluteus muscle. 4. Mild ascites. The findings were called to Dr. Carney. Deangelo Zamora MD Hip and Pelvis X-Ray 05/05/17 0000 Signed Impressions: Service Date/Time: Friday, May 05, 2017 10:59 - CONCLUSION: Left proximal femur trochanteric/subtrochanteric fracture lucency visualized. Postoperative changes. Choco Mustafa MD Chest CT 04/30/17 0000 Signed Impressions: Service Date/Time: Sunday, April 30, 2017 09:20 - CONCLUSION: 1. Bilateral pulmonary infiltrates more pronounced within the lower lobes with tiny bilateral pleural effusions. Material seen filling the lower lobe bronchi bilaterally either related to purulent material or perhaps mucus plugging. Deangelo Wren Jr., MD Carotid Artery Ultrasound 04/24/17 0000 Signed Impressions: Service Date/Time: April 09:45 - CONCLUSION: 1. No hemodynamically significant carotid artery stenosis. Arnie Middleton MD Hip X-Ray 04/21/17 0000 Signed Impressions: Service Date/Time: Friday, April 21, 2017 11:36 - CONCLUSION: Fluoroscopic images during placement of intramedullary siomara left femur. Benja Ramsey MD Objective Remarks Gen: 76-year-old female, resting in bed in no acute distress HEENT: Pupils are 2 mm bilaterally and reactive.. Oropharynx without erythema. No thrush. Neck: Trach site clean and dry. #8 [place]. Supple. Resp: No wheezing. Acceptable spontaneous excursions. Clear. Cardiovascular: RRR. S1, S2. No S4. No murmurs, no JVD. GI/abdomen: Soft, nontender, nondistended. PEG tube site is clean dry and intact. Extremities: Warm, well perfused. No rash. Stage III sacral decubitus ulcer Neuro: Eyes open with coughing. Dense right hemiplegia. Withdraws left upper extremity, Withdraws LLE and occasionally will spontaneously move left lower extremity. A/P Assessment and Plan Neuro/Psych: Left MCA CVA - 5.5 mm of [id number] subfalcine herniation. right-sided hemiplegia Acute encephalopathy History CVA Continue Aspirin 325 mg by tube daily. On admission, patient was not a candidate for thrombolysis per discussion with neurology and radiology. Repeat head CT 05/15 showed slight improvement in the midline shift now 5.5 mm and mass effect Neurosurgery consulted 04/30- Dr. López, recommended conservative management. Neurology Dr. Malave has followed Cardiovascular: Hypertension As needed Antihypertensives to keep systolic blood pressure less than to 160 mmHg (when necessary IV labetalol and IV hydralazine) Lisinopril 20 mg twice a day to be continued Echocardiogram 04/24 - EF 50 to 55%. Mild concentric LVH. Pulmonary: Acute hypoxic respiratory failure - aspiration possible HCAP - resolved. chronic vent dependent respiratory failure Large left pneumothorax status post #10 Lao chest tube 05/07 - resolved. Chronic respiratory failure, currently on PRVC. 14/450/35 On T piece trial since noon yesterday 06/02 at 5 L Continue slow wean as tolerated Ventilator bundle. Ipratropium/albuterol aerosols every 6 hours with albuterol aerosols every 2 hours Chest tube d/c'd 05/12 GI/liver: Elevated transaminases Hypoalbuminemia Severe protein calorie malnutrition Small bowel ileus- resolving. Hepatitis C antibody positive with negative genotype/viral load Hepatic steatosis Continue PEG tube feeding with Glucerna 1.5 goal 45 cc an hour Lansoprazole 30 mg daily for GI regimen Docusate sodium 100 mg twice a day for bowel regimen Holding polyethylene glycol 17 g twice daily in light of multiple bowel movements Previous CT abdomen/pelvis 05/07 - mild ascites. Large left hemothorax. Right greater than left pleural effusion. Abdominal x-ray 06/16- small bowel ileus liver ultrasound 06/19 revealed hepatic steatosis and gallbladder sludge Endocrine: Diabetes mellitus Detemir 10 units subcutaneous daily. SSI low-dose every 6 hours with 3 units sliding scale past 24 hours Holding glimepiride 4 mg by mouth daily /Renal/FEN: Hyponatremia Strict intake output, monitor and replete electrolytes, follow BUN/creatinine. Moser catheter placed for urinary retention on 04/26. Moser removed 05/19 with q6h straight cath. Moser replaced again due to persistent urinary retention. Follow-up on BMP/magnesium phosphorus in a.m. 06/20 stable Heme: Chronic Rivaroxaban use Leukocytosis Normocytic anemia Thrombocytosis Follow CBC and coags. On subcutaneous enoxaparin 40 mg daily subcutaneous Hemoglobin currently stable. No indications for transfusion of blood proximally at this time ID: MSSA bacteremia - resolved. Serratia/staph aureus pneumonia - resolved. C glabrata UTI - resolved. Citrobacter UTI - resolved. Serratia/MSSA sputum VAP Pertinent cultures Urine culture 04/26/17 sofie glabrata Blood culture 04/29/17 1 out of 4 bottles staph aureus Sputum culture 04/30/17 MSSA and Serratia. urine 05/07-> Serratia, treated. Urine 05/25: Citrobacter Ceftriaxone started 05/26, changed to Cefepime 05/27 based on sensitivity, stopped 06/03/17 Started on piperacillin/tazobactam and vancomycin 06/21 times 8 days for VAP. This is been completed Vancomycin discontinued 06/23 MSK: Left Intertroch Hip Fx s/p IMN Vitamin D deficiency stage III decubitus ulcer Continue calcium vitamin D 250/125 one tablet 3x a day and cholecalciferol 5000 units daily. PT/OT evaluate and treat Maxsorb every 3 days/dressing changes every 3 days per wound care Continue bene protein one packet 3x a day Prophylaxis: SCDs. Enoxaparin 40 mg subcutaneous daily-cleared by Dr. Malave. GI - lansoprazole 30 mg by PEG tube daily Overall impression: No change in neurological function. Transfer to floor on T- piece. Charles Pedraza MD Jul 07, 2017 07:41
[2017-07-07] MEDS: LISINOPRIL 10 MG TAB PO SCH ×2 (08:36→21:54)
[2017-07-07] MEDS: CALCIUM/VITAMIN D 250 MG/125 U TAB PO SCH ×3 (08:36→18:00)
[2017-07-07] MEDS: DOCUSATE SODIUM 100 MG/10 ML UDC PO SCH ×2 (08:36→21:00)
[2017-07-07] MEDS: ENOXAPARIN SODIUM 40 MG/0.4 ML SYRINGE SQ SCH (08:36)
[2017-07-07] MEDS: LANSOPRAZOLE SOLUTAB 30 MG TAB NG SCH (08:36)
[2017-07-07] MEDS: ASPIRIN 325 MG TAB DOBHOFF SCH (08:37)
[2017-07-07] MEDS: CHOLECALCIFEROL (VIT D3) 5000 UNIT CAP PO SCH (08:37)
[2017-07-07] MEDS: INSULIN DETEMIR 100 UNITS/ML VIAL SQ SCH ×2 (08:37→22:20)
[2017-07-07] MEDS: SODIUM CHLORIDE 0.9% FLUSH 5 ML FLUSH IV FLUSH SCH ×2 (08:41→21:00)
[2017-07-07] MEDS: BENEPROTEIN POWDER 1 PACK G-TUBE SCH ×3 (08:41→18:00)
[2017-07-08] VITALS (13 sets, daily range): BP systolic 109–158; BP diastolic 1–75; PULSE 75–104; RESP 22–28; TEMP 97.9–98.7; O2SAT 90–97
[2017-07-08] MEDS: RESP: ALBUTEROL 2.5 MG/IPRATROPIUM 0.5 MG NEB (SCH) NEB ×2 (03:18→10:22)
[2017-07-08] MEDS: LABETALOL HCL 100 MG/20 ML VIAL IV PUSH PRN (05:02)
[2017-07-08] MEDS: ARTIFICIAL TEARS OPTH SOLN 15 ML BTL EACH EYE SCH ×3 (05:08→22:00)
[2017-07-08] MEDS: INSULIN ASPART SUPPLEMENTAL SCALE SQ SCH ×4 (06:08→18:00)
--- NOTE | 2017-07-08 07:44 | PD.TRANSFR ---
Transfer Summary Admission Date Apr 20, 2017 at 10:46 Transfer Date: Jul 09, 2017 Admitting Diagnosis Massive left middle cerebral artery ischemic stroke. Diagnoses: (1) Acute ischemic left middle cerebral artery (MCA) stroke Diagnosis: Principal (2) Acute respiratory failure Diagnosis: Principal (3) Right hemiplegia Diagnosis: Principal (4) Sacral decubitus ulcer Diagnosis: Secondary Significant Findings Right handed woman with massive dominant hemisphere stroke. Unresponsive and ventilator dependent requiring tracheostomy and long-term weaning. Now acceptable spontaneous respirations and T-piece. Spontaneously moves left hand and arm. Does not follow commands. Transfer Summary/Subjective 76 y/o woman with advanced dementia (found in park taking her cloths off, etc.) found down at home covered in feces and in DKA on 04/20. Left hip was fractured and she was brought to ED and underwent ORIF left hip. Conversant. Suddenly on 04/24 she became unresponsive -> Large acute dominant hemisphere (left) ischemic stroke. Remains unresponsive. Finally weaned from ventilator on 07/06 and sustained acceptable respiratory effort through tracheostomy. Moves left arm and hand spontaneously. Unable to transition due to absent funding. Patient is not a [place] citizen. She is [place] but lived most of her life in [facility]. [place] two [place] ago. title abstractor are well acquainted with her situation. Objective Vital Signs Date Time Temp Pulse Resp B/P (MAP) Pulse Ox O2 Delivery O2 Flow Rate FiO2 07/08/17 06:00 77 07/08/17 04:00 70 07/08/17 04:00 98.2 28 158/74 (102) 96 07/07/17 22:00 T-Piece 07/07/17 16:32 6.00 Intake and Output 07/08/17 07/08/17 07/09/17 08:00 16:00 00:00 Intake Total 550 ml Output Total 675 ml Balance -125 ml Result Diagram: 07/05/17 0325 07/05/17 0325 Imaging Last Impressions Chest X-Ray 06/24/17 0600 Signed Impressions: Service Date/Time: Saturday, June 24, 2017 06:00 - CONCLUSION: Bilateral patchy infiltrates slightly worsened. Benja Ramsey MD Liver Ultrasound 06/19/17 0000 Signed Impressions: Service Date/Time: June 13:20 - CONCLUSION: 1. Mildly increased echotexture of the liver characteristic of hepatic steatosis. 2. Gallbladder sludge. Obdulio Sam MD Abdomen X-Ray 06/16/17 0000 Signed Impressions: Service Date/Time: Friday, June 16, 2017 04:48 - CONCLUSION: 1. Continued small bowel ileus. There has been no significant change when compared to the prior exam. Toy Duran MD Head CT 05/15/17 0000 Signed Impressions: Service Date/Time: May 19:59 - CONCLUSION: 1. 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 2. No bleed or new/acute infarct. Obdulio Simms MD Gall Bladder Ultrasound 05/08/17 0000 Signed Impressions: Service Date/Time: May 08:23 - CONCLUSION: Focally unremarkable appearance of the gallbladder Obdulio Chun MD Abdomen/Pelvis CT 05/07/17 0000 Signed Impressions: Service Date/Time: Sunday, May 07, 2017 13:23 - CONCLUSION: 1. Large left pneumothorax. 2. Bilateral lower lobe consolidation and bilateral moderate size pleural effusions. 3. Significant soft tissue thickening of the right lateral chest wall and left gluteus muscle. 4. Mild ascites. The findings were called to Dr. Carney. Deangelo Zamora MD Hip and Pelvis X-Ray 05/05/17 0000 Signed Impressions: Service Date/Time: Friday, May 05, 2017 10:59 - CONCLUSION: Left proximal femur trochanteric/subtrochanteric fracture lucency visualized. Postoperative changes. Choco Mustafa MD Chest CT 04/30/17 0000 Signed Impressions: Service Date/Time: Sunday, April 30, 2017 09:20 - CONCLUSION: 1. Bilateral pulmonary infiltrates more pronounced within the lower lobes with tiny bilateral pleural effusions. Material seen filling the lower lobe bronchi bilaterally either related to purulent material or perhaps mucus plugging. Deangelo Wren Jr., MD Carotid Artery Ultrasound 04/24/17 0000 Signed Impressions: Service Date/Time: April 09:45 - CONCLUSION: 1. No hemodynamically significant carotid artery stenosis. Arnie Middleton MD Hip X-Ray 04/21/17 0000 Signed Impressions: Service Date/Time: Friday, April 21, 2017 11:36 - CONCLUSION: Fluoroscopic images during placement of intramedullary siomara left femur. Benja Ramsey MD Objective Remarks Gen: 76-year-old female, resting in bed in no acute distress HEENT: Pupils are 2 mm bilaterally and reactive.. Oropharynx without erythema. No thrush. Neck: Trach site clean and dry. #8 Shiley. Supple. Resp: No wheezing. Acceptable spontaneous excursions. Clear. Cardiovascular: RRR. S1, S2. No S4. No murmurs, no JVD. GI/abdomen: Soft, nontender, nondistended. PEG tube site is clean dry and intact. Extremities: Warm, well perfused. No rash. Stage III sacral decubitus ulcer Neuro: Eyes open with coughing. Dense right hemiplegia. Withdraws left upper extremity, Withdraws LLE and occasionally will spontaneously move left lower extremity. A/P Assessment and Plan Neuro/Psych: Left MCA CVA - 5.5 mm of [id number] subfalcine herniation. right-sided hemiplegia Acute encephalopathy History CVA Continue Aspirin 325 mg by tube daily. On admission, patient was not a candidate for thrombolysis per discussion with neurology and radiology. Repeat head CT 05/15 showed slight improvement in the midline shift now 5.5 mm and mass effect Neurosurgery consulted 04/30- Dr. López, recommended conservative management. Neurology Dr. Malave has followed Cardiovascular: Hypertension As needed Antihypertensives to keep systolic blood pressure less than to 160 mmHg (when necessary IV labetalol and IV hydralazine) Lisinopril 20 mg twice a day to be continued Echocardiogram 04/24 - EF 50 to 55%. Mild concentric LVH. Pulmonary: Acute hypoxic respiratory failure - aspiration possible HCAP - resolved. chronic vent dependent respiratory failure Large left pneumothorax status post #10 German chest tube 05/07 - resolved. Chronic respiratory failure, currently on PRVC. 14/450/1/5/35 On T piece trial since noon yesterday 06/02 at 5 L Continue slow wean as tolerated Ventilator bundle. Ipratropium/albuterol aerosols every 6 hours with albuterol aerosols every 2 hours Chest tube d/c'd 05/12 GI/liver: Elevated transaminases Hypoalbuminemia Severe protein calorie malnutrition Small bowel ileus- resolving. Hepatitis C antibody positive with negative genotype/viral load Hepatic steatosis Continue PEG tube feeding with Glucerna 1.5 goal 45 cc an hour Lansoprazole 30 mg daily for GI regimen Docusate sodium 100 mg twice a day for bowel regimen Holding polyethylene glycol 17 g twice daily in light of multiple bowel movements Previous CT abdomen/pelvis 05/07 - mild ascites. Large left hemothorax. Right greater than left pleural effusion. Abdominal x-ray 06/16- small bowel ileus liver ultrasound 06/19 revealed hepatic steatosis and gallbladder sludge Endocrine: Diabetes mellitus Detemir 10 units subcutaneous daily. SSI low-dose every 6 hours with 3 units sliding scale past 24 hours Holding glimepiride 4 mg by mouth daily /Renal/FEN: Hyponatremia Strict intake output, monitor and replete electrolytes, follow BUN/creatinine. Leavitt catheter placed for urinary retention on 04/26. Leavitt removed 05/19 with q6h straight cath. Leavitt replaced again due to persistent urinary retention. Follow-up on BMP/magnesium phosphorus in a.m. 06/20 stable Heme: Chronic Rivaroxaban use Leukocytosis Normocytic anemia Thrombocytosis Follow CBC and coags. On subcutaneous enoxaparin 40 mg daily subcutaneous Hemoglobin currently stable. No indications for transfusion of blood proximally at this time ID: MSSA bacteremia - resolved. Serratia/staph aureus pneumonia - resolved. C glabrata UTI - resolved. Citrobacter UTI - resolved. Serratia/MSSA sputum VAP Pertinent cultures Urine culture 04/26/17 sofie glabrata Blood culture 04/29/17 1 out of 4 bottles staph aureus Sputum culture 04/30/17 MSSA and Serratia. urine 05/07-> Serratia, treated. Urine 05/25: Citrobacter Ceftriaxone started 05/26, changed to Cefepime 05/27 based on sensitivity, stopped 06/03/17 Started on piperacillin/tazobactam and vancomycin 06/21 times 8 days for VAP. This is been completed Vancomycin discontinued 06/23 MSK: Left Intertroch Hip Fx s/p IMN Vitamin D deficiency stage III decubitus ulcer Continue calcium vitamin D 250/125 one tablet 3x a day and cholecalciferol 5000 units daily. PT/OT evaluate and treat Maxsorb every 3 days/dressing changes every 3 days per wound care Continue bene protein one packet 3x a day Prophylaxis: SCDs. Enoxaparin 40 mg subcutaneous daily-cleared by Dr. Malave. GI - lansoprazole 30 mg by PEG tube daily Overall impression: No change in neurological function. Transfer to floor on T- piece. Charles Pedraza MD Jul 08, 2017 07:44
[2017-07-08] MEDS: BENEPROTEIN POWDER 1 PACK G-TUBE SCH ×3 (09:00→18:00)
[2017-07-08] MEDS: SODIUM CHLORIDE 0.9% FLUSH 5 ML FLUSH IV FLUSH SCH ×2 (09:00→20:42)
[2017-07-08] MEDS: CHOLECALCIFEROL (VIT D3) 5000 UNIT CAP PO SCH (09:28)
[2017-07-08] MEDS: ENOXAPARIN SODIUM 40 MG/0.4 ML SYRINGE SQ SCH (09:28)
[2017-07-08] MEDS: DOCUSATE SODIUM 100 MG/10 ML UDC PO SCH ×2 (09:29→20:41)
[2017-07-08] MEDS: LANSOPRAZOLE SOLUTAB 30 MG TAB NG SCH (09:29)
[2017-07-08] MEDS: LISINOPRIL 10 MG TAB PO SCH ×2 (09:29→20:43)
[2017-07-08] MEDS: CALCIUM/VITAMIN D 250 MG/125 U TAB PO SCH ×3 (09:29→18:14)
[2017-07-08] MEDS: ASPIRIN 325 MG TAB DOBHOFF SCH (09:29)
[2017-07-08] MEDS: INSULIN DETEMIR 100 UNITS/ML VIAL SQ SCH ×2 (09:31→20:45)
[2017-07-09] VITALS (8 sets, daily range): BP systolic 129–169; BP diastolic 62–81; PULSE 78–96; RESP 4–28; TEMP 97.8–98.8; O2SAT 93–99
[2017-07-09] MEDS: hydrALAZINE HCL 20 MG/ML VIAL IV PUSH PRN (01:17)
[2017-07-09] MEDS: ARTIFICIAL TEARS OPTH SOLN 15 ML BTL EACH EYE SCH ×3 (06:00→22:00)
[2017-07-09] MEDS: INSULIN ASPART SUPPLEMENTAL SCALE SQ SCH ×4 (06:24→17:13)
[2017-07-09] MEDS: CHOLECALCIFEROL (VIT D3) 5000 UNIT CAP PO SCH (07:59)
[2017-07-09] MEDS: DOCUSATE SODIUM 100 MG/10 ML UDC PO SCH ×2 (07:59→22:54)
[2017-07-09] MEDS: LISINOPRIL 10 MG TAB PO SCH ×2 (07:59→22:54)
[2017-07-09] MEDS: ENOXAPARIN SODIUM 40 MG/0.4 ML SYRINGE SQ SCH (07:59)
[2017-07-09] MEDS: BENEPROTEIN POWDER 1 PACK G-TUBE SCH ×3 (08:00→17:13)
[2017-07-09] MEDS: LANSOPRAZOLE SOLUTAB 30 MG TAB NG SCH (08:00)
[2017-07-09] MEDS: CALCIUM/VITAMIN D 250 MG/125 U TAB PO SCH ×3 (08:00→17:13)
[2017-07-09] MEDS: INSULIN DETEMIR 100 UNITS/ML VIAL SQ SCH ×2 (08:00→21:00)
[2017-07-09] MEDS: SODIUM CHLORIDE 0.9% FLUSH 5 ML FLUSH IV FLUSH SCH ×2 (08:00→21:00)
[2017-07-09] MEDS: ASPIRIN 325 MG TAB DOBHOFF SCH (08:00)
[2017-07-09] MEDS: POLYETHYLENE GLYCOL 17 GM PKG PEG SCH (10:29)
--- NOTE | 2017-07-09 14:43 | RADRPT ---
EXAM DATE/TIME: 07/09/2017 14:04 [facility] COMPARISON: HIP LEFT (AP&LAT 2/3VWS) W AP PELVIS, May 05, 2017, 10:59. INDICATIONS : Left hip pain, no injury. MEDICAL HISTORY : None. SURGICAL HISTORY : Right total hip replacement, Left total hip replacement. ENCOUNTER: Initial ACUITY: 1 day PAIN SCORE: Non-responsive. LOCATION: Left hip FINDINGS: Intramedullary siomara and troch nail evident. Alignment is anatomic. Fibroid uterus. SI joints are n ormal.. CONCLUSION: Anatomic alignment. Ricardo Middleton MD FACR on July 09, 2017 at 14:40 Board Certified Radiologist. This report was verified electronically.
[2017-07-09] MEDS: DEXTROSE 50% IN WATER 50 ML SYRINGE IV PUSH PRN (17:14)
[2017-07-10] VITALS (8 sets, daily range): BP systolic 129–182; BP diastolic 62–82; PULSE 78–94; RESP 14–22; TEMP 97.3–98.6; O2SAT 40–99
[2017-07-10] MEDS: ARTIFICIAL TEARS OPTH SOLN 15 ML BTL EACH EYE SCH ×3 (06:00→22:00)
[2017-07-10] MEDS: INSULIN ASPART SUPPLEMENTAL SCALE SQ SCH ×4 (06:28→17:43)
--- NOTE | 2017-07-10 07:12 | HHI.CCPN ---
Subjective Remarks/Hospital Course 04/24: 76-year-old female with a medical history significant for prior stroke, diabetes mellitus who was admitted with DKA and a hip fracture for which she underwent ORIF on 04/21. Patient developed altered mental status and was last noted to be okay around 5:30 AM. Subsequently there was a change in her mental status and she was noted to not be moving her right side for which stroke alert was called. Head CT showed large left MCA territory ischemic infarct with edema. Patient was transferred to the ICU by family medicine service in the critical care consult was requested. I evaluated the patient following arrival to the ICU. At that time she was laying in bed with her eyes open however not following commands and had a dense right hemiplegia. Patient was also evaluated by Dr. Malave from neurology. I further discussed current event with patient's daughter following her arrival to the ICU. Per the daughter patient has been living with her since her stroke in 2014 and does ambulate however has been having problems with memory and incontinence as well as gait difficulties. She does not feel patient would want intubation or tracheostomy or PEG tube. 04/25: Patient remains encephalopathic, awake though not following commands consistently. Dense right hemiplegia persists. Appears to be awake enough to protect airway currently. Patient's daughter rescinded DNR and made a full code last evening. 04/26: Remains encephalopathic, not following commands. On Dobbhoff for tube feeds at 30 cc per hour. Had urinary retention and drained 2 L of urine after placing Moser catheter today. CT head done this morning with large left MCA territory infarct with left to right midline shift and significant cerebral edema. Hyperglycemia noted. Patient given mannitol earlier for increasing cerebral edema. 04/27: Remains encephalopathic, not following commands. On Dobbhoff tube feeds at 30 cc per hour. When into A. fib with RVR last night which responded with Lopressor 5 mg IV 1 dose. 04/28: Remains encephalopathic, arousable, not following commands. Moves left upper extremity spontaneously. Tolerating Dobbhoff tube feeds. Remains on nasal cannula. 04/29: Encephalopathic, eyes be arousable, moves left upper extremity spontaneously and occasionally opens eyes. Dense right hemiplegia and aphasia persists. On nasal cannula. Dobbhoff tube feeds being advanced. Patient was transfused 1 unit PRBCs yesterday. Urine culture with yeast from yesterday for which fluconazole being started. Had brief run of A. fib with RVR which improved with Lopressor IV, currently in sinus rhythm. 04/30: Worsening hypoxemic respiratory failure, currently on partial nonrebreather. Remains lethargic. WBC count increased from 14.6 today 20.7. Chest x-ray shows bilateral worsening infiltrates and small pleural effusions. Sodium 154, weight up by 8 KG. Albumin 1 mg Bumex 1. Also one dose of albumin. Remains in sinus tachycardia. Tmax 101.3 05/01: Patient was intubated yesterday for lack of airway protection, and severe hypoxemic respiratory failure from aspiration pneumonia involving multiple lobes. Patient is on the vent lethargic, no spontaneous eye opening. Chest x- ray remains unchanged. Remains intermittently febrile Tmax 101.3. WBC count improving 05/02: Remains critically ill with no improvement in mental status. Spiking fever of 101.7. Blood culture and sputum culture with staph aureus sputum also growing GNR, WBC count 22,000 now indicating worsening sepsis. Daughter still requesting aggressive care. Palliative care is following 05/03: S/P large area dominant hemisphere CVA. No neurological improvement. Now with pneumonia (infiltrate, fever, leukocytosis) and appropriate abx coverage. She will have a hard time surviving the hip fx, CVA, and pneumonia. Palliative Care needs to be a mainstay of our plan. 05/04: No improvement in neuro status. Sputum C&S allows us to narrow abx coverage to levaquin alone. Lungs remain quite congested. Enteral nutrition tolerated. 05/05: No improvement in neuro status. Moves left arm spontaneously. Flaccid right side. Unresponsive. Persistent mild hypoglycemia - will cut Levemir 50%. Abdomen more distended, check KUB. 05/06: CT head with massive left MCA infarction and > 1 cm shift in right handed woman. She opens eyes, does not track. 05/07: Patient open eyes. Attempts to respond. Guyanese speaking. Tolerating tube feeds. Positive bowel movement. Volume overloaded. 05/08: Tmax 99.4. Potassium being replaced. Ultrasound gallbladder currently pending. Transaminases are trending downward. Gently diurese. 05/09: Alk phos decreasing. Remains with good urine output. Neurological status not improving. 05/10: Fixed neuro deficit unchanged. Profound CVA. 05/11: Appears to track with eyes today. No improvement in motor function. Remains very edematous, diuretics doubled. 05/12: Continued thick secretions. Afebrile, leukocytosis resolved. 05/13: CT head with completed left MCA stroke, persistent edema and 5 mm shift away. Does not last long on SBTs - major decision now is trach/PEG. 05/14: Daughter has decided to proceed with trach and PEG. I have been pessimistic with her about chances for a meaningful recovery. 05/15: Plan for trach today. No change in neuro status. Still ventilator dependent. 05/16: Trach completed. Await PEG and disposition. 05/17: PEG placed 05/16. Start TFs today after nutrition consult. Work to place patient. 05/18: No improvement. Does open eyes, no focus or tracking. Completed large dominant (left) hemisphere CVA in right handed woman with severe deficit. Medicaid pending status, [facility] is following. 05/19: no improvements in neuro exam. ready for LTAC. will d/c moser and rectal tubes. 05/20: no changes or improvements. very difficult placement due to patient not [place] citizen. 05/21: no improvements. resting on vent overnight due to distress. 05/22: no neurologic changes. no improvements. attempted T-piece which failed after 10 minutes. 05/23: no improvements. poor prognosis. poor neuro exam. still failing weaning trials. 05/24: no improvements or changes. still failing t-piece trials. 05/25: No acute changes of improvement overnight. Failed CPAP due to apnea, tried again currently tolerating. Neurological exam unchanged. 05/26: No improvement in neurological function. 05/27: Patient has required Moser catheter because of breakdown of skin on upper thighs and groin. Urine has become infected, will treat. 05/28: Some drainage from around trach (placed 2 weeks ago). Will change out trach tube and inspect neck wound. I&O straight cath q6h order entered 05/17. 05/29: No improvement, remains obtunded. Failed CPAP trials yesterday and again today due to apnea. Moser placed due to persistent urinary retention 05/30: Obtunded, unresponsive. Failed SBTs, remains ventilator dependent. 05/31: Patient continues to fail SBT failed yesterday due to apnea. Neuro exam remains unchanged. 06/01: No acute changes overnight, 06/02: no changes. ekg done overnight for ? EKG changes seen on telemetry which were not visualized on EKG. 06/03: no improvements or changes. had long conversation with daughter yesterday. only facility which would accept patient is in [place] and daughter is refusing to allow patient to go there because it is "too far away." Daughter continues to push for aggressive care despite no improvements, and resistant to Hospice. Patient does not need acute inpatient therapy but lacks funding for appropriate disposition. 06/04: No acute events overnight, failed SBT due to apnea. 06/05: No acute events, continues to fail spontaneous breathing trials. Unable to wean 06/06 Currently tolerating CPAP. Will attempt TP today up to 4 hours. No acute events overnight 06/07: Tolerating trach collar/T-piece. Transfer soon. 06/08: Awaiting transfer. 06/09: Remains ventilator dependent. No improvement in neurological function. 06/10: No improvement. Daughter is not attending preplanned meetings to discuss disposition 06/12: Afebrile. Neurologically stable and unchanged. Noted sodium 135. Adding sodium chloride tablets 1 today. Not on free water.. Tolerating tube feeds at goal 45 cc an hour. 06/13: No improvement in neurological function. 06/14: No improvement. Fluid balance correct. Gas exchange acceptable. 06/15: No improvement. Obtunded and unresponsive. 06/16: no improvements in mental status. KUB overnight with dilated small bowel loops. given methylnaltrexone and erythromycin. today abdomen is soft and tolerating tube feeds. 06/17: tolerated t-piece x 6 hours yesterday. rested on cpap overnight. no changes in encephalopathy. 06/18: Currently on ventilator overnight. Multiple bowel movements. Thick yellow secretions noted in ventilator circuit. Opens eyes. 06/19: Afebrile. Tolerating stretcher chair yesterday on PSV. Tolerating tube feeding. Neurologically unchanged. 06/20: Afebrile. Resting in bed in no acute distress in sitting position. Currently on ventilator set sitting. Tolerated stretcher chair/PSV trial 6 hours yesterday. Neurologically unchanged. 06/21: Tmax 100.8. Patient with copious thick yellow secretions. Tolerating tube feeds. Positive bowel movement. Lasted only 1 hour PSV yesterday 06/22: Tmax 99.9. Continues to have thick secretions. Tolerating tube feeding. Positive BM. 06/23: Afebrile. Continues to have thick tracheal secretions from tracheostomy site. Tolerating tube feeding. 3 bowels movements. Opens eyes to stimulation. Stares at you but does not follow commands. 06/24: Remains encephalopathic, on mechanical ventilation via tracheostomy. Tolerating PEG feeds 06/25: Remains encephalopathic on mechanical ventilation. Tolerated C Pap +5 with pressure support +10 all day yesterday. Tolerating PEG feeds. 06/26: No improvement.Vent dependent still. 06/27: Remains encephalopathic, on mech vent via trach. Daily CPAP trials. 06/28: Unable to wean from ventilator. 06/29: Neurologically unchanged. Remains on mechanical ventilation. Daily C Pap trials ongoing. 06/30: Remains encephalopathic. On C Pap overnight. Tolerating tube feeds. 07/01: No change in neurologic status. On mechanical ventilation via tracheostomy. Tolerating tube feeds. 07/02: Remains encephalopathic. No change in neurologic status. On mechanical ventilation via tracheostomy. Daily C Pap trials ongoing. 07/03: Occasional spontaneous eye opening however remains encephalopathic. On mechanical ventilation via tracheostomy. 07/04: Tmax 99.2. Multiple bowel movements overnight. Tolerating tube feeds. On T piece trial at 5 L since noon yesterday. Otherwise neurologically unchanged. Daughter encouraged by movement of left leg. Subjective 07/05: Currently resting in bed on T piece 36 hours. Tolerates chair. No changes neurologically. Positive BM's. Tolerating her tube feeding. 07/06: Continue T-piece trials, if tolerated consider transfer to floor. 07/07: Extended T-piece trial. Plan transfer to floor. 07/09: Patient is experiencing apnea episodes and had to be placed back on higher FiO2.. Hold transfer. 07/10: X-ray left hip shows good anatomic alignment. Still requiring elevated FiO2. Objective Vital Signs Date Time Temp Pulse Resp B/P (MAP) Pulse Ox O2 Delivery O2 Flow Rate FiO2 07/10/17 04:00 50 07/10/17 04:00 98.6 88 16 129/62 (84) 99 07/09/17 20:03 T-piece 07/09/17 08:07 6.00 Intake and Output 07/10/17 07/10/17 07/11/17 08:00 16:00 00:00 Intake Total 666 ml Output Total 550 ml Balance 116 ml Imaging Last Impressions Chest X-Ray 06/24/17 0600 Signed Impressions: Service Date/Time: Saturday, June 24, 2017 06:00 - CONCLUSION: Bilateral patchy infiltrates slightly worsened. Benja Ramsey MD Liver Ultrasound 06/19/17 0000 Signed Impressions: Service Date/Time: June 13:20 - CONCLUSION: 1. Mildly increased echotexture of the liver characteristic of hepatic steatosis. 2. Gallbladder sludge. Obdulio Sam MD Abdomen X-Ray 06/16/17 0000 Signed Impressions: Service Date/Time: Friday, June 16, 2017 04:48 - CONCLUSION: 1. Continued small bowel ileus. There has been no significant change when compared to the prior exam. Toy Duran MD Head CT 05/15/17 0000 Signed Impressions: Service Date/Time: May 19:59 - CONCLUSION: 1. 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 2. No bleed or new/acute infarct. Obdulio Simms MD Gall Bladder Ultrasound 05/08/17 0000 Signed Impressions: Service Date/Time: May 08:23 - CONCLUSION: Focally unremarkable appearance of the gallbladder Obdulio Chun MD Abdomen/Pelvis CT 05/07/17 0000 Signed Impressions: Service Date/Time: Sunday, May 07, 2017 13:23 - CONCLUSION: 1. Large left pneumothorax. 2. Bilateral lower lobe consolidation and bilateral moderate size pleural effusions. 3. Significant soft tissue thickening of the right lateral chest wall and left gluteus muscle. 4. Mild ascites. The findings were called to Dr. Carney. Deangelo Zamora MD Hip and Pelvis X-Ray 05/05/17 0000 Signed Impressions: Service Date/Time: Friday, May 05, 2017 10:59 - CONCLUSION: Left proximal femur trochanteric/subtrochanteric fracture lucency visualized. Postoperative changes. Choco Mustafa MD Chest CT 04/30/17 0000 Signed Impressions: Service Date/Time: Sunday, April 30, 2017 09:20 - CONCLUSION: 1. Bilateral pulmonary infiltrates more pronounced within the lower lobes with tiny bilateral pleural effusions. Material seen filling the lower lobe bronchi bilaterally either related to purulent material or perhaps mucus plugging. Deangelo Wren Jr., MD Carotid Artery Ultrasound 04/24/17 0000 Signed Impressions: Service Date/Time: April 09:45 - CONCLUSION: 1. No hemodynamically significant carotid artery stenosis. Arnie Middleton MD Hip X-Ray 04/21/17 0000 Signed Impressions: Service Date/Time: Friday, April 21, 2017 11:36 - CONCLUSION: Fluoroscopic images during placement of intramedullary siomara left femur. Benja Ramsey MD Objective Remarks Gen: 76-year-old female, resting in bed in no acute distress HEENT: Pupils are 2 mm bilaterally and reactive.. Oropharynx without erythema. No thrush. Neck: Trach site clean and dry. #8 [place]. Supple. Resp: No wheezing. Acceptable spontaneous excursions. Clear. Cardiovascular: RRR. S1, S2. No S4. No murmurs, no JVD. GI/abdomen: Soft, nontender, nondistended. PEG tube site is clean dry and intact. Extremities: Warm, well perfused. No rash. Stage III sacral decubitus ulcer Neuro: Eyes open with coughing. Dense right hemiplegia. Moves left upper extremity, Withdraws LLE and occasionally will spontaneously move left lower extremity. A/P Assessment and Plan Neuro/Psych: Left MCA CVA - 5.5 mm of [id number] subfalcine herniation. right-sided hemiplegia Acute encephalopathy History CVA Continue Aspirin 325 mg by tube daily. On admission, patient was not a candidate for thrombolysis per discussion with neurology and radiology. Repeat head CT 05/15 showed slight improvement in the midline shift now 5.5 mm and mass effect Neurosurgery consulted 04/30- Dr. López, recommended conservative management. Neurology Dr. Malave has followed Cardiovascular: Hypertension As needed Antihypertensives to keep systolic blood pressure less than to 160 mmHg (when necessary IV labetalol and IV hydralazine) Lisinopril 20 mg twice a day to be continued Echocardiogram 04/24 - EF 50 to 55%. Mild concentric LVH. Pulmonary: Acute hypoxic respiratory failure - aspiration possible HCAP - resolved. chronic vent dependent respiratory failure Large left pneumothorax status post #10 [place] chest tube 05/07 - resolved. Chronic respiratory failure, currently on PRVC. 14/450///35 On T piece trial since noon yesterday 06/02 at 5 L Continue slow wean as tolerated Ventilator bundle. Ipratropium/albuterol aerosols every 6 hours with albuterol aerosols every 2 hours Chest tube d/c'd 05/12 GI/liver: Elevated transaminases Hypoalbuminemia Severe protein calorie malnutrition Small bowel ileus- resolving. Hepatitis C antibody positive with negative genotype/viral load Hepatic steatosis Continue PEG tube feeding with Glucerna 1.5 goal 45 cc an hour Lansoprazole 30 mg daily for GI regimen Docusate sodium 100 mg twice a day for bowel regimen Holding polyethylene glycol 17 g twice daily in light of multiple bowel movements Previous CT abdomen/pelvis 05/07 - mild ascites. Large left hemothorax. Right greater than left pleural effusion. Abdominal x-ray 06/16- small bowel ileus liver ultrasound 06/19 revealed hepatic steatosis and gallbladder sludge Checl prealbumin Endocrine: Diabetes mellitus Detemir 10 units subcutaneous daily. SSI low-dose every 6 hours with 3 units sliding scale past 24 hours Holding glimepiride 4 mg by mouth daily /Renal/FEN: Hyponatremia Strict intake output, monitor and replete electrolytes, follow BUN/creatinine. Moser catheter placed for urinary retention on 04/26. Moser removed 05/19 with q6h straight cath. Moser replaced again due to persistent urinary retention. Follow-up on BMP/magnesium phosphorus in a.m. 06/20 stable Heme: Chronic Rivaroxaban use Leukocytosis Normocytic anemia Thrombocytosis Follow CBC and coags. On subcutaneous enoxaparin 40 mg daily subcutaneous Hemoglobin currently stable. No indications for transfusion of blood proximally at this time ID: MSSA bacteremia - resolved. Serratia/staph aureus pneumonia - resolved. C glabrata UTI - resolved. Citrobacter UTI - resolved. Serratia/MSSA sputum VAP Pertinent cultures Urine culture 04/26/17 sofie glabrata Blood culture 04/29/17 1 out of 4 bottles staph aureus Sputum culture 04/30/17 MSSA and Serratia. urine 05/07-> Serratia, treated. Urine 05/25: Citrobacter Ceftriaxone started 05/26, changed to Cefepime 05/27 based on sensitivity, stopped 06/03/17 Started on piperacillin/tazobactam and vancomycin 06/21 times 8 days for VAP. This is been completed Vancomycin discontinued 06/23 MSK: Left Intertroch Hip Fx s/p IMN Vitamin D deficiency stage III decubitus ulcer Continue calcium vitamin D 250/125 one tablet 3x a day and cholecalciferol 5000 units daily. PT/OT evaluate and treat Maxsorb every 3 days/dressing changes every 3 days per wound care Continue bene protein one packet 3x a day Prophylaxis: SCDs. Enoxaparin 40 mg subcutaneous daily-cleared by Dr. Malave. GI - lansoprazole 30 mg by PEG tube daily Overall impression: No change in neurological function. Though tolerating T- piece for extended periods she requires elevated FiO2 periodically due to hypoventilation. Charles Pedraza MD Jul 10, 2017 07:12
[2017-07-10] MEDS: DOCUSATE SODIUM 100 MG/10 ML UDC PO SCH ×2 (08:35→23:03)
[2017-07-10] MEDS: LISINOPRIL 10 MG TAB PO SCH ×2 (08:35→23:03)
[2017-07-10] MEDS: POLYETHYLENE GLYCOL 17 GM PKG PEG SCH (08:35)
[2017-07-10] MEDS: CALCIUM/VITAMIN D 250 MG/125 U TAB PO SCH ×3 (08:35→17:44)
[2017-07-10] MEDS: CHOLECALCIFEROL (VIT D3) 5000 UNIT CAP PO SCH (08:35)
[2017-07-10] MEDS: LANSOPRAZOLE SOLUTAB 30 MG TAB NG SCH (08:35)
[2017-07-10] MEDS: SODIUM CHLORIDE 0.9% FLUSH 5 ML FLUSH IV FLUSH SCH ×2 (08:35→21:00)
[2017-07-10] MEDS: ENOXAPARIN SODIUM 40 MG/0.4 ML SYRINGE SQ SCH (08:35)
[2017-07-10] MEDS: ASPIRIN 325 MG TAB DOBHOFF SCH (08:35)
[2017-07-10] MEDS: BENEPROTEIN POWDER 1 PACK G-TUBE SCH ×3 (08:36→17:44)
[2017-07-10] MEDS: INSULIN DETEMIR 100 UNITS/ML VIAL SQ SCH ×2 (08:52→23:03)
[2017-07-10] MEDS: hydrALAZINE HCL 20 MG/ML VIAL IV PUSH PRN (13:51)
[2017-07-11] VITALS (8 sets, daily range): BP systolic 144–175; BP diastolic 72–82; PULSE 78–93; RESP 14–28; TEMP 97.8–98.4; O2SAT 85–99
[2017-07-11 04:38] LABS: AUTOMATED NEUTROPHIL # 6.6 TH/MM3 (1.8-7.7); BASOPHIL # 0.1 TH/MM3 (0-0.2); BASOPHIL % 1.1 % (0.0-2.0); EOSINOPHIL # 0.2 TH/MM3 (0-0.4); EOSINOPHIL % 2.8 % (0.0-4.0); HEMOGLOBIN 10.1 GM/DL (11.6-15.3); LYMPH % 17.1 % (9.0-44.0); LYMPHOCYTE # 1.5 TH/MM3 (1.0-4.8); MEAN CORPUSCULAR HEMOGLOBIN 32.6 PG (27.0-34.0); MEAN CORPUSCULAR HGB CONC 33.6 % (32.0-36.0); MEAN PLATELET VOLUME 9.4 FL (7.0-11.0); MONO % 5.2 % (0.0-8.0); MONOCYTE # 0.5 TH/MM3 (0-0.9); NEUT % 73.8 % (16.0-70.0); PLATELET COUNT 331 TH/MM3 (150-450); RED CELL DISTRIBUTION WIDTH 16.8 % (11.6-17.2); WHITE BLOOD COUNT 8.9 TH/MM3 (4.0-11.0)
[2017-07-11 05:00] LABS: ALBUMIN 2.2 GM/DL (3.4-5.0); AST (GOT) 35 U/L (15-37); BICARBONATE 33.8 MEQ/L (21.0-32.0); BLOOD UREA NITROGEN 52 MG/DL (7-18); CALCIUM 9.4 MG/DL (8.5-10.1); CHLORIDE 107 MEQ/L (98-107); GLOMERULAR FILTRATION RATE 121 ML/MIN (>89); GLUCOSE,RANDOM 229 MG/DL (74-106); SODIUM (NA) 148 MEQ/L (136-145)
[2017-07-11 05:01] LABS: ALT (GPT) 30 U/L (10-53)
[2017-07-11 05:03] LABS: ALKALINE PHOSPHATASE 650 U/L (45-117); TOTAL BILIRUBIN ADULT 0.2 MG/DL (0.2-1.0); TOTAL PROTEIN 6.9 GM/DL (6.4-8.2)
[2017-07-11] MEDS: ARTIFICIAL TEARS OPTH SOLN 15 ML BTL EACH EYE SCH ×3 (06:00→21:47)
[2017-07-11] MEDS: INSULIN ASPART SUPPLEMENTAL SCALE SQ SCH ×4 (06:00→18:00)
--- NOTE | 2017-07-11 08:23 | HHI.CCPN ---
Subjective Remarks/Hospital Course 04/24: 76-year-old female with a medical history significant for prior stroke, diabetes mellitus who was admitted with DKA and a hip fracture for which she underwent ORIF on 04/21. Patient developed altered mental status and was last noted to be okay around 5:30 AM. Subsequently there was a change in her mental status and she was noted to not be moving her right side for which stroke alert was called. Head CT showed large left MCA territory ischemic infarct with edema. Patient was transferred to the ICU by family medicine service in the critical care consult was requested. I evaluated the patient following arrival to the ICU. At that time she was laying in bed with her eyes open however not following commands and had a dense right hemiplegia. Patient was also evaluated by Dr. Malave from neurology. I further discussed current event with patient's daughter following her arrival to the ICU. Per the daughter patient has been living with her since her stroke in 2014 and does ambulate however has been having problems with memory and incontinence as well as gait difficulties. She does not feel patient would want intubation or tracheostomy or PEG tube. 04/25: Patient remains encephalopathic, awake though not following commands consistently. Dense right hemiplegia persists. Appears to be awake enough to protect airway currently. Patient's daughter rescinded DNR and made a full code last evening. 04/26: Remains encephalopathic, not following commands. On Dobbhoff for tube feeds at 30 cc per hour. Had urinary retention and drained 2 L of urine after placing Moser catheter today. CT head done this morning with large left MCA territory infarct with left to right midline shift and significant cerebral edema. Hyperglycemia noted. Patient given mannitol earlier for increasing cerebral edema. 04/27: Remains encephalopathic, not following commands. On Dobbhoff tube feeds at 30 cc per hour. When into A. fib with RVR last night which responded with Lopressor 5 mg IV 1 dose. 04/28: Remains encephalopathic, arousable, not following commands. Moves left upper extremity spontaneously. Tolerating Dobbhoff tube feeds. Remains on nasal cannula. 04/29: Encephalopathic, eyes be arousable, moves left upper extremity spontaneously and occasionally opens eyes. Dense right hemiplegia and aphasia persists. On nasal cannula. Dobbhoff tube feeds being advanced. Patient was transfused 1 unit PRBCs yesterday. Urine culture with yeast from yesterday for which fluconazole being started. Had brief run of A. fib with RVR which improved with Lopressor IV, currently in sinus rhythm. 04/30: Worsening hypoxemic respiratory failure, currently on partial nonrebreather. Remains lethargic. WBC count increased from 14.6 today 20.7. Chest x-ray shows bilateral worsening infiltrates and small pleural effusions. Sodium 154, weight up by 8 KG. Albumin 1 mg Bumex 1. Also one dose of albumin. Remains in sinus tachycardia. Tmax 101.3 05/01: Patient was intubated yesterday for lack of airway protection, and severe hypoxemic respiratory failure from aspiration pneumonia involving multiple lobes. Patient is on the vent lethargic, no spontaneous eye opening. Chest x- ray remains unchanged. Remains intermittently febrile Tmax 101.3. WBC count improving 05/02: Remains critically ill with no improvement in mental status. Spiking fever of 101.7. Blood culture and sputum culture with staph aureus sputum also growing GNR, WBC count 22,000 now indicating worsening sepsis. Daughter still requesting aggressive care. Palliative care is following 05/03: S/P large area dominant hemisphere CVA. No neurological improvement. Now with pneumonia (infiltrate, fever, leukocytosis) and appropriate abx coverage. She will have a hard time surviving the hip fx, CVA, and pneumonia. Palliative Care needs to be a mainstay of our plan. 05/04: No improvement in neuro status. Sputum C&S allows us to narrow abx coverage to levaquin alone. Lungs remain quite congested. Enteral nutrition tolerated. 05/05: No improvement in neuro status. Moves left arm spontaneously. Flaccid right side. Unresponsive. Persistent mild hypoglycemia - will cut Levemir 50%. Abdomen more distended, check KUB. 05/06: CT head with massive left MCA infarction and > 1 cm shift in right handed woman. She opens eyes, does not track. 05/07: Patient open eyes. Attempts to respond. Citizen Of [place] speaking. Tolerating tube feeds. Positive bowel movement. Volume overloaded. 05/08: Tmax 99.4. Potassium being replaced. Ultrasound gallbladder currently pending. Transaminases are trending downward. Gently diurese. 05/09: Alk phos decreasing. Remains with good urine output. Neurological status not improving. 05/10: Fixed neuro deficit unchanged. Profound CVA. 05/11: Appears to track with eyes today. No improvement in motor function. Remains very edematous, diuretics doubled. 05/12: Continued thick secretions. Afebrile, leukocytosis resolved. 05/13: CT head with completed left MCA stroke, persistent edema and 5 mm shift away. Does not last long on SBTs - major decision now is trach/PEG. 05/14: Daughter has decided to proceed with trach and PEG. I have been pessimistic with her about chances for a meaningful recovery. 05/15: Plan for trach today. No change in neuro status. Still ventilator dependent. 05/16: Trach completed. Await PEG and disposition. 05/17: PEG placed 05/16. Start TFs today after nutrition consult. Work to place patient. 05/18: No improvement. Does open eyes, no focus or tracking. Completed large dominant (left) hemisphere CVA in right handed woman with severe deficit. Medicaid pending status, [facility] is following. 05/19: no improvements in neuro exam. ready for LTAC. will d/c moser and rectal tubes. 05/20: no changes or improvements. very difficult placement due to patient not [place] citizen. 05/21: no improvements. resting on vent overnight due to distress. 05/22: no neurologic changes. no improvements. attempted T-piece which failed after 10 minutes. 05/23: no improvements. poor prognosis. poor neuro exam. still failing weaning trials. 05/24: no improvements or changes. still failing t-piece trials. 05/25: No acute changes of improvement overnight. Failed CPAP due to apnea, tried again currently tolerating. Neurological exam unchanged. 05/26: No improvement in neurological function. 05/27: Patient has required Moser catheter because of breakdown of skin on upper thighs and groin. Urine has become infected, will treat. 05/28: Some drainage from around trach (placed 2 weeks ago). Will change out trach tube and inspect neck wound. I&O straight cath q6h order entered 05/17. 05/29: No improvement, remains obtunded. Failed CPAP trials yesterday and again today due to apnea. Moser placed due to persistent urinary retention 05/30: Obtunded, unresponsive. Failed SBTs, remains ventilator dependent. 05/31: Patient continues to fail SBT failed yesterday due to apnea. Neuro exam remains unchanged. 06/01: No acute changes overnight, 06/02: no changes. ekg done overnight for ? EKG changes seen on telemetry which were not visualized on EKG. 06/03: no improvements or changes. had long conversation with daughter yesterday. only facility which would accept patient is in [place] and daughter is refusing to allow patient to go there because it is "too far away." Daughter continues to push for aggressive care despite no improvements, and resistant to Hospice. Patient does not need acute inpatient therapy but lacks funding for appropriate disposition. 06/04: No acute events overnight, failed SBT due to apnea. 06/05: No acute events, continues to fail spontaneous breathing trials. Unable to wean 06/06 Currently tolerating CPAP. Will attempt TP today up to 4 hours. No acute events overnight 06/07: Tolerating trach collar/T-piece. Transfer soon. 06/08: Awaiting transfer. 06/09: Remains ventilator dependent. No improvement in neurological function. 06/10: No improvement. Daughter is not attending preplanned meetings to discuss disposition 06/12: Afebrile. Neurologically stable and unchanged. Noted sodium 135. Adding sodium chloride tablets 1 today. Not on free water.. Tolerating tube feeds at goal 45 cc an hour. 06/13: No improvement in neurological function. 06/14: No improvement. Fluid balance correct. Gas exchange acceptable. 06/15: No improvement. Obtunded and unresponsive. 06/16: no improvements in mental status. KUB overnight with dilated small bowel loops. given methylnaltrexone and erythromycin. today abdomen is soft and tolerating tube feeds. 06/17: tolerated t-piece x 6 hours yesterday. rested on cpap overnight. no changes in encephalopathy. 06/18: Currently on ventilator overnight. Multiple bowel movements. Thick yellow secretions noted in ventilator circuit. Opens eyes. 06/19: Afebrile. Tolerating stretcher chair yesterday on PSV. Tolerating tube feeding. Neurologically unchanged. 06/20: Afebrile. Resting in bed in no acute distress in sitting position. Currently on ventilator set sitting. Tolerated stretcher chair/PSV trial 6 hours yesterday. Neurologically unchanged. 06/21: Tmax 100.8. Patient with copious thick yellow secretions. Tolerating tube feeds. Positive bowel movement. Lasted only 1 hour PSV yesterday 06/22: Tmax 99.9. Continues to have thick secretions. Tolerating tube feeding. Positive BM. 06/23: Afebrile. Continues to have thick tracheal secretions from tracheostomy site. Tolerating tube feeding. 3 bowels movements. Opens eyes to stimulation. Stares at you but does not follow commands. 06/24: Remains encephalopathic, on mechanical ventilation via tracheostomy. Tolerating PEG feeds 06/25: Remains encephalopathic on mechanical ventilation. Tolerated C Pap +5 with pressure support +10 all day yesterday. Tolerating PEG feeds. 06/26: No improvement.Vent dependent still. 06/27: Remains encephalopathic, on mech vent via trach. Daily CPAP trials. 06/28: Unable to wean from ventilator. 06/29: Neurologically unchanged. Remains on mechanical ventilation. Daily C Pap trials ongoing. 06/30: Remains encephalopathic. On C Pap overnight. Tolerating tube feeds. 07/01: No change in neurologic status. On mechanical ventilation via tracheostomy. Tolerating tube feeds. 07/02: Remains encephalopathic. No change in neurologic status. On mechanical ventilation via tracheostomy. Daily C Pap trials ongoing. 07/03: Occasional spontaneous eye opening however remains encephalopathic. On mechanical ventilation via tracheostomy. 07/04: Tmax 99.2. Multiple bowel movements overnight. Tolerating tube feeds. On T piece trial at 5 L since noon yesterday. Otherwise neurologically unchanged. Daughter encouraged by movement of left leg. Subjective 07/05: Currently resting in bed on T piece 36 hours. Tolerates chair. No changes neurologically. Positive BM's. Tolerating her tube feeding. 07/06: Continue T-piece trials, if tolerated consider transfer to floor. 07/07: Extended T-piece trial. Plan transfer to floor. 07/09: Patient is experiencing apnea episodes and had to be placed back on higher FiO2.. Hold transfer. 07/10: X-ray left hip shows good anatomic alignment. Still requiring elevated FiO2. 07/11: Prealbumin 20, nutritional support is adequate and status is stable. No neurological improvement. Objective Vital Signs Date Time Temp Pulse Resp B/P (MAP) Pulse Ox O2 Delivery O2 Flow Rate FiO2 07/11/17 07:00 90 T-Piece 35 07/11/17 04:00 89 07/11/17 04:00 98.4 16 164/79 (107) 07/10/17 08:35 6.00 Intake and Output 07/11/17 07/11/17 07/12/17 08:00 16:00 00:00 Intake Total 673 ml Output Total 700 ml Balance -27 ml Result Diagram: 07/11/17 0358 07/11/17 0353 Imaging Last Impressions Chest X-Ray 06/24/17 0600 Signed Impressions: Service Date/Time: Saturday, June 24, 2017 06:00 - CONCLUSION: Bilateral patchy infiltrates slightly worsened. Benja Ramsey MD Liver Ultrasound 06/19/17 0000 Signed Impressions: Service Date/Time: June 13:20 - CONCLUSION: 1. Mildly increased echotexture of the liver characteristic of hepatic steatosis. 2. Gallbladder sludge. Obdulio Sam MD Abdomen X-Ray 06/16/17 0000 Signed Impressions: Service Date/Time: Friday, June 16, 2017 04:48 - CONCLUSION: 1. Continued small bowel ileus. There has been no significant change when compared to the prior exam. Toy Duran MD Head CT 05/15/17 0000 Signed Impressions: Service Date/Time: May 19:59 - CONCLUSION: 1. 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 2. No bleed or new/acute infarct. Obdulio Simms MD Gall Bladder Ultrasound 05/08/17 0000 Signed Impressions: Service Date/Time: May 08:23 - CONCLUSION: Focally unremarkable appearance of the gallbladder Obdulio Chun MD Abdomen/Pelvis CT 05/07/17 0000 Signed Impressions: Service Date/Time: Sunday, May 07, 2017 13:23 - CONCLUSION: 1. Large left pneumothorax. 2. Bilateral lower lobe consolidation and bilateral moderate size pleural effusions. 3. Significant soft tissue thickening of the right lateral chest wall and left gluteus muscle. 4. Mild ascites. The findings were called to Dr. Carney. Deangelo Zamora MD Hip and Pelvis X-Ray 05/05/17 0000 Signed Impressions: Service Date/Time: Friday, May 05, 2017 10:59 - CONCLUSION: Left proximal femur trochanteric/subtrochanteric fracture lucency visualized. Postoperative changes. Choco Mustafa MD Chest CT 04/30/17 0000 Signed Impressions: Service Date/Time: Sunday, April 30, 2017 09:20 - CONCLUSION: 1. Bilateral pulmonary infiltrates more pronounced within the lower lobes with tiny bilateral pleural effusions. Material seen filling the lower lobe bronchi bilaterally either related to purulent material or perhaps mucus plugging. Deangelo Wren Jr., MD Carotid Artery Ultrasound 04/24/17 0000 Signed Impressions: Service Date/Time: April 09:45 - CONCLUSION: 1. No hemodynamically significant carotid artery stenosis. Arnie Middleton MD Hip X-Ray 04/21/17 0000 Signed Impressions: Service Date/Time: Friday, April 21, 2017 11:36 - CONCLUSION: Fluoroscopic images during placement of intramedullary siomara left femur. Benja Ramsey MD Objective Remarks Gen: 76-year-old female, resting in bed in no acute distress HEENT: Pupils are 2 mm bilaterally and reactive.. Oropharynx without erythema. No thrush. Neck: Trach site clean and dry. #8 Shiley. Supple. Resp: No wheezing. Acceptable spontaneous excursions. Clear. Cardiovascular: RRR. S1, S2. No S4. No murmurs, no JVD. GI/abdomen: Soft, nontender, nondistended. PEG tube site is clean dry and intact. Extremities: Warm, well perfused. No rash. Stage III sacral decubitus ulcer, unchanged. Neuro: Eyes open with coughing. Dense right hemiplegia. Moves left upper extremity, Withdraws LLE and occasionally will spontaneously move left lower extremity. A/P Assessment and Plan Neuro/Psych: Left MCA CVA - 5.5 mm of [id number] subfalcine herniation. right-sided hemiplegia Acute encephalopathy History CVA Continue Aspirin 325 mg by tube daily. On admission, patient was not a candidate for thrombolysis per discussion with neurology and radiology. Repeat head CT 05/15 showed slight improvement in the midline shift now 5.5 mm and mass effect Neurosurgery consulted 04/30- Dr. López, recommended conservative management. Neurology Dr. Malave has followed Cardiovascular: Hypertension As needed Antihypertensives to keep systolic blood pressure less than to 160 mmHg (when necessary IV labetalol and IV hydralazine) Lisinopril 20 mg twice a day to be continued Echocardiogram 04/24 - EF 50 to 55%. Mild concentric LVH. Pulmonary: Acute hypoxic respiratory failure - aspiration possible HCAP - resolved. chronic vent dependent respiratory failure Large left pneumothorax status post #10 Samo[place] chest tube 05/07 - resolved. Chronic respiratory failure, currently on PRVC. 14/450/09/05/35 On T piece trial since noon yesterday 06/02 at 5 L Continue slow wean as tolerated Ventilator bundle. Ipratropium/albuterol aerosols every 6 hours with albuterol aerosols every 2 hours Chest tube d/c'd 05/12 GI/liver: Elevated transaminases Hypoalbuminemia Severe protein calorie malnutrition Small bowel ileus- resolving. Hepatitis C antibody positive with negative genotype/viral load Hepatic steatosis Continue PEG tube feeding with Glucerna 1.5 goal 45 cc an hour Lansoprazole 30 mg daily for GI regimen Docusate sodium 100 mg twice a day for bowel regimen Holding polyethylene glycol 17 g twice daily in light of multiple bowel movements Previous CT abdomen/pelvis 05/07 - mild ascites. Large left hemothorax. Right greater than left pleural effusion. Abdominal x-ray 06/16- small bowel ileus liver ultrasound 06/19 revealed hepatic steatosis and gallbladder sludge Check prealbumin -> 20, acceptable. Endocrine: Diabetes mellitus Detemir 10 units subcutaneous daily. SSI low-dose every 6 hours with 3 units sliding scale past 24 hours Holding glimepiride 4 mg by mouth daily /Renal/FEN: Hyponatremia Strict intake output, monitor and replete electrolytes, follow BUN/creatinine. Moser catheter placed for urinary retention on 04/26. Moser removed 05/19 with q6h straight cath. Moser replaced again due to persistent urinary retention. Follow-up on BMP/magnesium phosphorus in a.m. 06/20 stable Heme: Chronic Rivaroxaban use Leukocytosis Normocytic anemia Thrombocytosis Follow CBC and coags. On subcutaneous enoxaparin 40 mg daily subcutaneous Hemoglobin currently stable. No indications for transfusion of blood proximally at this time ID: MSSA bacteremia - resolved. Serratia/staph aureus pneumonia - resolved. C glabrata UTI - resolved. Citrobacter UTI - resolved. Serratia/MSSA sputum VAP Pertinent cultures Urine culture 04/26/17 sofie glabrata Blood culture 04/29/17 1 out of 4 bottles staph aureus Sputum culture 04/30/17 MSSA and Serratia. urine 05/07-> Serratia, treated. Urine 05/25: Citrobacter Ceftriaxone started 05/26, changed to Cefepime 05/27 based on sensitivity, stopped 06/03/17 Started on piperacillin/tazobactam and vancomycin 06/21 times 8 days for VAP. This is been completed Vancomycin discontinued 06/23 MSK: Left Intertroch Hip Fx s/p IMN Vitamin D deficiency stage III decubitus ulcer Continue calcium vitamin D 250/125 one tablet 3x a day and cholecalciferol 5000 units daily. PT/OT evaluate and treat Maxsorb every 3 days/dressing changes every 3 days per wound care Continue bene protein one packet 3x a day Prophylaxis: SCDs. Enoxaparin 40 mg subcutaneous daily-cleared by Dr. Malave. GI - lansoprazole 30 mg by PEG tube daily Overall impression: No change in neurological function. Though tolerating T- piece for extended periods there is no neurological change. Charles Pedraza MD Jul 11, 2017 08:23
[2017-07-11] MEDS: DOCUSATE SODIUM 100 MG/10 ML UDC PO SCH ×2 (08:49→21:00)
[2017-07-11] MEDS: POLYETHYLENE GLYCOL 17 GM PKG PEG SCH (08:49)
[2017-07-11] MEDS: BENEPROTEIN POWDER 1 PACK G-TUBE SCH ×3 (09:00→18:00)
[2017-07-11] MEDS: SODIUM CHLORIDE 0.9% FLUSH 5 ML FLUSH IV FLUSH SCH ×2 (09:00→21:00)
[2017-07-11] MEDS: INSULIN DETEMIR 100 UNITS/ML VIAL SQ SCH ×2 (09:00→21:00)
[2017-07-11] MEDS: ENOXAPARIN SODIUM 40 MG/0.4 ML SYRINGE SQ SCH (09:30)
[2017-07-11] MEDS: ASPIRIN 325 MG TAB DOBHOFF SCH (09:30)
[2017-07-11] MEDS: CALCIUM/VITAMIN D 250 MG/125 U TAB PO SCH ×3 (09:30→18:10)
[2017-07-11] MEDS: CHOLECALCIFEROL (VIT D3) 5000 UNIT CAP PO SCH (09:30)
[2017-07-11] MEDS: LANSOPRAZOLE SOLUTAB 30 MG TAB NG SCH (09:30)
[2017-07-11] MEDS: LISINOPRIL 10 MG TAB PO SCH ×2 (09:34→21:00)
--- NOTE | 2017-07-11 18:34 | PD.WCN.NOT ---
Wound Consult Description: Follow up on coccyx wound. Communicated with: GREGORY Palacios Recommendation: 1. Please cleanse coccyx wound every 3 days and PRN for soiling. 2. Apply Calcium Alginate to open wound bed. 3. Secure with bordered gauze every 3 days and PRN for soiling. 4. Continue to turn patient every 2 hours or PRN for comfort. Please use one ultrasorb for moisture. Please use flat sheet for repositioning. Additional Information: Patient seen on for follow up of wound to coccyx. Patient was positioned to her right side for assessment with assistance from GREGORY Palacios. Bordered gauze and moist Maxorb II removed to reveal a full thickness skin loss wound with what appears to be mostly fascia in the wound bed. Wound was cleansed with NS and gauze measuring 2cm x 2cm x 0.2cm of 60% white fascia surrounded by ~30% moist pink tissue and ~10% epithelial tissue noted to wound margins. Wound is without active drainage and without odor. Periwound is unremarkable. Wound is a shallow Stage IV pressure injury and appears stable. Maxorb II was placed over wound bed and secured with bordered gauze dressing dated today. No new recommendations at this time. Patient was repositioned prior to leaving bedside. Snehal Olivier [facility] Jul 11, 2017 18:34
[2017-07-12] VITALS (11 sets, daily range): BP systolic 105–166; BP diastolic 52–88; PULSE 75–102; RESP 14–22; TEMP 96–99.8; O2SAT 86–100
[2017-07-12] MEDS: INSULIN ASPART SUPPLEMENTAL SCALE SQ SCH ×5 (05:00→23:22)
[2017-07-12] MEDS: ARTIFICIAL TEARS OPTH SOLN 15 ML BTL EACH EYE SCH ×3 (05:34→20:33)
[2017-07-12] MEDS: ENOXAPARIN SODIUM 40 MG/0.4 ML SYRINGE SQ SCH (11:56)
[2017-07-12] MEDS: CHOLECALCIFEROL (VIT D3) 5000 UNIT CAP PO SCH (11:57)
[2017-07-12] MEDS: CALCIUM/VITAMIN D 250 MG/125 U TAB PO SCH ×3 (11:57→18:25)
[2017-07-12] MEDS: LANSOPRAZOLE SOLUTAB 30 MG TAB NG SCH (11:57)
[2017-07-12] MEDS: ASPIRIN 325 MG TAB DOBHOFF SCH (11:58)
[2017-07-12] MEDS: POLYETHYLENE GLYCOL 17 GM PKG PEG SCH (11:58)
[2017-07-12] MEDS: LISINOPRIL 10 MG TAB PO SCH ×2 (11:58→20:39)
[2017-07-12] MEDS: DOCUSATE SODIUM 100 MG/10 ML UDC PO SCH ×2 (11:58→20:38)
[2017-07-12] MEDS: BENEPROTEIN POWDER 1 PACK G-TUBE SCH ×3 (12:15→18:24)
[2017-07-12] MEDS: SODIUM CHLORIDE 0.9% FLUSH 5 ML FLUSH IV FLUSH SCH ×2 (12:16→20:39)
[2017-07-12] MEDS: INSULIN DETEMIR 100 UNITS/ML VIAL SQ SCH ×2 (12:16→20:33)
[2017-07-13] VITALS (7 sets, daily range): BP systolic 148–173; BP diastolic 69–80; PULSE 83–91; RESP 14–20; TEMP 96.5–97.9; O2SAT 92–98
[2017-07-13] MEDS: ARTIFICIAL TEARS OPTH SOLN 15 ML BTL EACH EYE SCH ×3 (05:47→23:07)
[2017-07-13] MEDS: INSULIN ASPART SUPPLEMENTAL SCALE SQ SCH ×4 (05:47→23:07)
--- NOTE | 2017-07-13 08:33 | HHI.CCPN ---
Subjective Remarks/Hospital Course 04/24: 76-year-old female with a medical history significant for prior stroke, diabetes mellitus who was admitted with DKA and a hip fracture for which she underwent ORIF on 04/21. Patient developed altered mental status and was last noted to be okay around 5:30 AM. Subsequently there was a change in her mental status and she was noted to not be moving her right side for which stroke alert was called. Head CT showed large left MCA territory ischemic infarct with edema. Patient was transferred to the ICU by family medicine service in the critical care consult was requested. I evaluated the patient following arrival to the ICU. At that time she was laying in bed with her eyes open however not following commands and had a dense right hemiplegia. Patient was also evaluated by Dr. Malave from neurology. I further discussed current event with patient's daughter following her arrival to the ICU. Per the daughter patient has been living with her since her stroke in 2014 and does ambulate however has been having problems with memory and incontinence as well as gait difficulties. She does not feel patient would want intubation or tracheostomy or PEG tube. 04/25: Patient remains encephalopathic, awake though not following commands consistently. Dense right hemiplegia persists. Appears to be awake enough to protect airway currently. Patient's daughter rescinded DNR and made a full code last evening. 04/26: Remains encephalopathic, not following commands. On Dobbhoff for tube feeds at 30 cc per hour. Had urinary retention and drained 2 L of urine after placing Moser catheter today. CT head done this morning with large left MCA territory infarct with left to right midline shift and significant cerebral edema. Hyperglycemia noted. Patient given mannitol earlier for increasing cerebral edema. 04/27: Remains encephalopathic, not following commands. On Dobbhoff tube feeds at 30 cc per hour. When into A. fib with RVR last night which responded with Lopressor 5 mg IV 1 dose. 04/28: Remains encephalopathic, arousable, not following commands. Moves left upper extremity spontaneously. Tolerating Dobbhoff tube feeds. Remains on nasal cannula. 04/29: Encephalopathic, eyes be arousable, moves left upper extremity spontaneously and occasionally opens eyes. Dense right hemiplegia and aphasia persists. On nasal cannula. Dobbhoff tube feeds being advanced. Patient was transfused 1 unit PRBCs yesterday. Urine culture with yeast from yesterday for which fluconazole being started. Had brief run of A. fib with RVR which improved with Lopressor IV, currently in sinus rhythm. 04/30: Worsening hypoxemic respiratory failure, currently on partial nonrebreather. Remains lethargic. WBC count increased from 14.6 today 20.7. Chest x-ray shows bilateral worsening infiltrates and small pleural effusions. Sodium 154, weight up by 8 KG. Albumin 1 mg Bumex 1. Also one dose of albumin. Remains in sinus tachycardia. Tmax 101.3 05/01: Patient was intubated yesterday for lack of airway protection, and severe hypoxemic respiratory failure from aspiration pneumonia involving multiple lobes. Patient is on the vent lethargic, no spontaneous eye opening. Chest x- ray remains unchanged. Remains intermittently febrile Tmax 101.3. WBC count improving 05/02: Remains critically ill with no improvement in mental status. Spiking fever of 101.7. Blood culture and sputum culture with staph aureus sputum also growing GNR, WBC count 22,000 now indicating worsening sepsis. Daughter still requesting aggressive care. Palliative care is following 05/03: S/P large area dominant hemisphere CVA. No neurological improvement. Now with pneumonia (infiltrate, fever, leukocytosis) and appropriate abx coverage. She will have a hard time surviving the hip fx, CVA, and pneumonia. Palliative Care needs to be a mainstay of our plan. 05/04: No improvement in neuro status. Sputum C&S allows us to narrow abx coverage to levaquin alone. Lungs remain quite congested. Enteral nutrition tolerated. 05/05: No improvement in neuro status. Moves left arm spontaneously. Flaccid right side. Unresponsive. Persistent mild hypoglycemia - will cut Levemir 50%. Abdomen more distended, check KUB. 05/06: CT head with massive left MCA infarction and > 1 cm shift in right handed woman. She opens eyes, does not track. 05/07: Patient open eyes. Attempts to respond. Malaysian speaking. Tolerating tube feeds. Positive bowel movement. Volume overloaded. 05/08: Tmax 99.4. Potassium being replaced. Ultrasound gallbladder currently pending. Transaminases are trending downward. Gently diurese. 05/09: Alk phos decreasing. Remains with good urine output. Neurological status not improving. 05/10: Fixed neuro deficit unchanged. Profound CVA. 05/11: Appears to track with eyes today. No improvement in motor function. Remains very edematous, diuretics doubled. 05/12: Continued thick secretions. Afebrile, leukocytosis resolved. 05/13: CT head with completed left MCA stroke, persistent edema and 5 mm shift away. Does not last long on SBTs - major decision now is trach/PEG. 05/14: Daughter has decided to proceed with trach and PEG. I have been pessimistic with her about chances for a meaningful recovery. 05/15: Plan for trach today. No change in neuro status. Still ventilator dependent. 05/16: Trach completed. Await PEG and disposition. 05/17: PEG placed 05/16. Start TFs today after nutrition consult. Work to place patient. 05/18: No improvement. Does open eyes, no focus or tracking. Completed large dominant (left) hemisphere CVA in right handed woman with severe deficit. Medicaid pending status, [facility] is following. 05/19: no improvements in neuro exam. ready for LTAC. will d/c moser and rectal tubes. 05/20: no changes or improvements. very difficult placement due to patient not [place] citizen. 05/21: no improvements. resting on vent overnight due to distress. 05/22: no neurologic changes. no improvements. attempted T-piece which failed after 10 minutes. 05/23: no improvements. poor prognosis. poor neuro exam. still failing weaning trials. 05/24: no improvements or changes. still failing t-piece trials. 05/25: No acute changes of improvement overnight. Failed CPAP due to apnea, tried again currently tolerating. Neurological exam unchanged. 05/26: No improvement in neurological function. 05/27: Patient has required Moser catheter because of breakdown of skin on upper thighs and groin. Urine has become infected, will treat. 05/28: Some drainage from around trach (placed 2 weeks ago). Will change out trach tube and inspect neck wound. I&O straight cath q6h order entered 05/17. 05/29: No improvement, remains obtunded. Failed CPAP trials yesterday and again today due to apnea. Moser placed due to persistent urinary retention 05/30: Obtunded, unresponsive. Failed SBTs, remains ventilator dependent. 05/31: Patient continues to fail SBT failed yesterday due to apnea. Neuro exam remains unchanged. 06/01: No acute changes overnight, 06/02: no changes. ekg done overnight for ? EKG changes seen on telemetry which were not visualized on EKG. 06/03: no improvements or changes. had long conversation with daughter yesterday. only facility which would accept patient is in [place] and daughter is refusing to allow patient to go there because it is "too far away." Daughter continues to push for aggressive care despite no improvements, and resistant to Hospice. Patient does not need acute inpatient therapy but lacks funding for appropriate disposition. 06/04: No acute events overnight, failed SBT due to apnea. 06/05: No acute events, continues to fail spontaneous breathing trials. Unable to wean 06/06 Currently tolerating CPAP. Will attempt TP today up to 4 hours. No acute events overnight 06/07: Tolerating trach collar/T-piece. Transfer soon. 06/08: Awaiting transfer. 06/09: Remains ventilator dependent. No improvement in neurological function. 06/10: No improvement. Daughter is not attending preplanned meetings to discuss disposition 06/12: Afebrile. Neurologically stable and unchanged. Noted sodium 135. Adding sodium chloride tablets 1 today. Not on free water.. Tolerating tube feeds at goal 45 cc an hour. 06/13: No improvement in neurological function. 06/14: No improvement. Fluid balance correct. Gas exchange acceptable. 06/15: No improvement. Obtunded and unresponsive. 06/16: no improvements in mental status. KUB overnight with dilated small bowel loops. given methylnaltrexone and erythromycin. today abdomen is soft and tolerating tube feeds. 06/17: tolerated t-piece x 6 hours yesterday. rested on cpap overnight. no changes in encephalopathy. 06/18: Currently on ventilator overnight. Multiple bowel movements. Thick yellow secretions noted in ventilator circuit. Opens eyes. 06/19: Afebrile. Tolerating stretcher chair yesterday on PSV. Tolerating tube feeding. Neurologically unchanged. 06/20: Afebrile. Resting in bed in no acute distress in sitting position. Currently on ventilator set sitting. Tolerated stretcher chair/PSV trial 6 hours yesterday. Neurologically unchanged. 06/21: Tmax 100.8. Patient with copious thick yellow secretions. Tolerating tube feeds. Positive bowel movement. Lasted only 1 hour PSV yesterday 06/22: Tmax 99.9. Continues to have thick secretions. Tolerating tube feeding. Positive BM. 06/23: Afebrile. Continues to have thick tracheal secretions from tracheostomy site. Tolerating tube feeding. 3 bowels movements. Opens eyes to stimulation. Stares at you but does not follow commands. 06/24: Remains encephalopathic, on mechanical ventilation via tracheostomy. Tolerating PEG feeds 06/25: Remains encephalopathic on mechanical ventilation. Tolerated C Pap +5 with pressure support +10 all day yesterday. Tolerating PEG feeds. 06/26: No improvement.Vent dependent still. 06/27: Remains encephalopathic, on mech vent via trach. Daily CPAP trials. 06/28: Unable to wean from ventilator. 06/29: Neurologically unchanged. Remains on mechanical ventilation. Daily C Pap trials ongoing. 06/30: Remains encephalopathic. On C Pap overnight. Tolerating tube feeds. 07/01: No change in neurologic status. On mechanical ventilation via tracheostomy. Tolerating tube feeds. 07/02: Remains encephalopathic. No change in neurologic status. On mechanical ventilation via tracheostomy. Daily C Pap trials ongoing. 07/03: Occasional spontaneous eye opening however remains encephalopathic. On mechanical ventilation via tracheostomy. 07/04: Tmax 99.2. Multiple bowel movements overnight. Tolerating tube feeds. On T piece trial at 5 L since noon yesterday. Otherwise neurologically unchanged. Daughter encouraged by movement of left leg. Subjective 07/05: Currently resting in bed on T piece 36 hours. Tolerates chair. No changes neurologically. Positive BM's. Tolerating her tube feeding. 07/06: Continue T-piece trials, if tolerated consider transfer to floor. 07/07: Extended T-piece trial. Plan transfer to floor. 07/09: Patient is experiencing apnea episodes and had to be placed back on higher FiO2.. Hold transfer. 07/10: X-ray left hip shows good anatomic alignment. Still requiring elevated FiO2. 07/11: Prealbumin 20, nutritional support is adequate and status is stable. No neurological improvement. 07/12: No improvement in neurological function. Continued acceptable respiratory effort. 07/13: No change. Objective Vital Signs Date Time Temp Pulse Resp B/P (MAP) Pulse Ox O2 Delivery O2 Flow Rate FiO2 07/13/17 08:00 97.7 87 14 173/79 (110) 98 11/12/17 03:45 T-piece 10.00 40 Intake and Output 07/13/17 07/13/17 07/14/17 08:00 16:00 00:00 Output Total 500 ml Balance -500 ml Result Diagram: 07/11/17 0358 07/11/17 0353 Imaging Last Impressions Chest X-Ray 06/24/17 0600 Signed Impressions: Service Date/Time: Saturday, June 24, 2017 06:00 - CONCLUSION: Bilateral patchy infiltrates slightly worsened. Benja Ramsey MD Liver Ultrasound 06/19/17 0000 Signed Impressions: Service Date/Time: June 13:20 - CONCLUSION: 1. Mildly increased echotexture of the liver characteristic of hepatic steatosis. 2. Gallbladder sludge. Obdulio Sam MD Abdomen X-Ray 06/16/17 0000 Signed Impressions: Service Date/Time: Friday, June 16, 2017 04:48 - CONCLUSION: 1. Continued small bowel ileus. There has been no significant change when compared to the prior exam. Toy Duran MD Head CT 05/15/17 0000 Signed Impressions: Service Date/Time: May 19:59 - CONCLUSION: 1. 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 2. No bleed or new/acute infarct. Obdulio Simms MD Gall Bladder Ultrasound 05/08/17 0000 Signed Impressions: Service Date/Time: May 08:23 - CONCLUSION: Focally unremarkable appearance of the gallbladder Obdulio Chun MD Abdomen/Pelvis CT 05/07/17 0000 Signed Impressions: Service Date/Time: Sunday, May 07, 2017 13:23 - CONCLUSION: 1. Large left pneumothorax. 2. Bilateral lower lobe consolidation and bilateral moderate size pleural effusions. 3. Significant soft tissue thickening of the right lateral chest wall and left gluteus muscle. 4. Mild ascites. The findings were called to Dr. Carney. Deangelo Zamora MD Hip and Pelvis X-Ray 05/05/17 0000 Signed Impressions: Service Date/Time: Friday, May 05, 2017 10:59 - CONCLUSION: Left proximal femur trochanteric/subtrochanteric fracture lucency visualized. Postoperative changes. Choco Mustafa MD Chest CT 04/30/17 0000 Signed Impressions: Service Date/Time: Sunday, April 30, 2017 09:20 - CONCLUSION: 1. Bilateral pulmonary infiltrates more pronounced within the lower lobes with tiny bilateral pleural effusions. Material seen filling the lower lobe bronchi bilaterally either related to purulent material or perhaps mucus plugging. Deangelo Wren Jr., MD Carotid Artery Ultrasound 04/24/17 0000 Signed Impressions: Service Date/Time: April 09:45 - CONCLUSION: 1. No hemodynamically significant carotid artery stenosis. Arnie Middleton MD Hip X-Ray 04/21/17 0000 Signed Impressions: Service Date/Time: Friday, April 21, 2017 11:36 - CONCLUSION: Fluoroscopic images during placement of intramedullary siomara left femur. Benja Ramsey MD Objective Remarks Gen: 76-year-old female, resting in bed in no acute distress HEENT: Pupils are 2 mm bilaterally and reactive.. Oropharynx without erythema. No thrush. Neck: Trach site clean and dry. #8 Shiley. Supple. Resp: No wheezing. Acceptable spontaneous excursions. Clear. Cardiovascular: RRR. S1, S2. No S4. No murmurs, no JVD. GI/abdomen: Soft, nontender, nondistended. PEG tube site is clean dry and intact. Extremities: Warm, well perfused. No rash. Stage III sacral decubitus ulcer, unchanged. Neuro: Eyes open with coughing. Dense right hemiplegia. Moves left upper extremity, Withdraws LLE to noxious stimulation. A/P Assessment and Plan Neuro/Psych: Left MCA CVA - 5.5 mm of [id number] subfalcine herniation. right-sided hemiplegia Acute encephalopathy History CVA Continue Aspirin 325 mg by tube daily. On admission, patient was not a candidate for thrombolysis per discussion with neurology and radiology. Repeat head CT 05/15 showed slight improvement in the midline shift now 5.5 mm and mass effect Neurosurgery consulted 04/30- Dr. López, recommended conservative management. Neurology Dr. Malave has followed Cardiovascular: Hypertension As needed Antihypertensives to keep systolic blood pressure less than to 160 mmHg (when necessary IV labetalol and IV hydralazine) Lisinopril 20 mg twice a day to be continued Echocardiogram 04/24 - EF 50 to 55%. Mild concentric LVH. Pulmonary: Acute hypoxic respiratory failure - aspiration possible HCAP - resolved. chronic vent dependent respiratory failure Large left pneumothorax status post #10 Arabic chest tube 05/07 - resolved. Chronic respiratory failure, currently on T-piece Ventilator bundle. Ipratropium/albuterol aerosols every 6 hours with albuterol aerosols every 2 hours Chest tube d/c'd 05/12 GI/liver: Elevated transaminases Hypoalbuminemia Severe protein calorie malnutrition Small bowel ileus- resolving. Hepatitis C antibody positive with negative genotype/viral load Hepatic steatosis Continue PEG tube feeding with Glucerna 1.5 goal 45 cc an hour Lansoprazole 30 mg daily for GI regimen Docusate sodium 100 mg twice a day for bowel regimen Previous CT abdomen/pelvis 05/07 - mild ascites. Large left hemothorax. Right greater than left pleural effusion. Abdominal x-ray 06/16- small bowel ileus liver ultrasound 06/19 revealed hepatic steatosis and gallbladder sludge Check prealbumin -> 20, acceptable. Endocrine: Diabetes mellitus Detemir 10 units subcutaneous daily. SSI low-dose every 6 hours with 3 units sliding scale past 24 hours Holding glimepiride 4 mg by mouth daily /Renal/FEN: Hyponatremia Strict intake output, monitor and replete electrolytes, follow BUN/creatinine. Moesr catheter placed for urinary retention on 04/26. Moser removed 05/19 with q6h straight cath. Follow-up on BMP/magnesium phosphorus in a.m. 06/20 stable Heme: Chronic Rivaroxaban use Leukocytosis Normocytic anemia Thrombocytosis Follow CBC and coags. On subcutaneous enoxaparin 40 mg daily subcutaneous Hemoglobin currently stable. No indications for transfusion of blood proximally at this time ID: MSSA bacteremia - resolved. Serratia/staph aureus pneumonia - resolved. C glabrata UTI - resolved. Citrobacter UTI - resolved. Serratia/MSSA sputum VAP Pertinent cultures Urine culture 04/26/17 sofie glabrata Blood culture 04/29/17 1 out of 4 bottles staph aureus Sputum culture 04/30/17 MSSA and Serratia. urine 05/07-> Serratia, treated. Urine 05/25: Citrobacter Ceftriaxone started 05/26, changed to Cefepime 05/27 based on sensitivity, stopped 06/03/17 Started on piperacillin/tazobactam and vancomycin 06/21 times 8 days for VAP. This is been completed Vancomycin discontinued 06/23 MSK: Left Intertroch Hip Fx s/p IMN Vitamin D deficiency stage III decubitus ulcer Continue calcium vitamin D 250/125 one tablet 3x a day and cholecalciferol 5000 units daily. PT/OT evaluate and treat Maxsorb every 3 days/dressing changes every 3 days per wound care Continue bene protein one packet 3x a day Prophylaxis: SCDs. Enoxaparin 40 mg subcutaneous daily-cleared by Dr. Malave. GI - lansoprazole 30 mg by PEG tube daily Overall impression: No change in neurological function. Though tolerating T- piece for extended periods there is no neurological change. Follow nutritional status weekly. Charles Pedraza MD Jul 13, 2017 08:33
[2017-07-13] MEDS: ENOXAPARIN SODIUM 40 MG/0.4 ML SYRINGE SQ SCH (08:53)
[2017-07-13] MEDS: DOCUSATE SODIUM 100 MG/10 ML UDC PO SCH ×2 (08:53→20:51)
[2017-07-13] MEDS: ASPIRIN 325 MG TAB DOBHOFF SCH (08:53)
[2017-07-13] MEDS: CHOLECALCIFEROL (VIT D3) 5000 UNIT CAP PO SCH (08:54)
[2017-07-13] MEDS: POLYETHYLENE GLYCOL 17 GM PKG PEG SCH (08:54)
[2017-07-13] MEDS: CALCIUM/VITAMIN D 250 MG/125 U TAB PO SCH ×3 (08:54→17:50)
[2017-07-13] MEDS: LANSOPRAZOLE SOLUTAB 30 MG TAB NG SCH (08:54)
[2017-07-13] MEDS: LISINOPRIL 10 MG TAB PO SCH ×2 (08:54→20:51)
[2017-07-13] MEDS: BENEPROTEIN POWDER 1 PACK G-TUBE SCH ×3 (08:55→17:49)
[2017-07-13] MEDS: SODIUM CHLORIDE 0.9% FLUSH 5 ML FLUSH IV FLUSH SCH ×2 (08:55→20:50)
[2017-07-13] MEDS: INSULIN DETEMIR 100 UNITS/ML VIAL SQ SCH ×2 (09:03→21:00)
--- NOTE | 2017-07-13 14:17 | HHI.HP ---
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 Diagnoses: International Travel<30 Days: No Contact w/Intl Traveler<30days: No Known Affected Area: No History of Present Illness Patient is a 76-year-old female with significant PMHx of hypertension, diabetes mellitus and CVA that presented to the ED by EMS on 04/21/17 after sustaining a fall. Pt found to have Left hip fx s/p ORIF on 04/21/17. On POD#3 she developed focal neurologic deficit and on CT scan was found to have suffered a massive Left MCA stroke. 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 Pt later developed acute hypoxic respiratory failure requiring vent and critical care consult. ICU course has been complicated by multiple infections now resolved: MSSA bacteremia, Serratia/staph aureus pneumonia, C glabrata UTI, Citrobacter UTI and Serratia/MSSA sputum VAP. Treated with multiple antibiotics: Cefazolin x1 on 04/21, 3 bags from 04/21-04/22, 05/15-05/16, Cefepime 04/30-05/04, 05/27-06/03, ceftrioxone 05/26-05/27, erythromycin 06/16-06/18, 06/19 x1, and gentamicin 04/21, vancomycin x1, 04/30-05/03, 1, 06/21 x1, 06/22- 06/23. Patient has now been downgraded from critical care. Care has been transferred to team. As per last FM progress note on 06/05/17, plan was for transfer to [facility] for long-term care. Pt does not have health insurance. She did not qualify for medicaid because she is not a [place] citizen and has not lived in the [place] long enough. She was not able to be placed in a vent facility or a SNF without insurance. Case management explained that to her daughter. Daughter continues to want aggressive management , attempts at family meeting were unsuccessful. -Palliative, neuro and wound care following (Chito Damon MD, R1) Review of Systems Other unable to obtain (Chito Damon MD, R1) Past Family Social History Past Medical History HTN DM CVA Past Surgical History Unknown (Chito Damon MD, R1) Allergies: Coded Allergies: No Known Allergies (Unverified , 04/20/17) Family History History of heart disease in family Social History Never smoker No alcohol use Denies other drug use. Independent with dressing, bathing, eating; Occasional urinary incontinence (Chito Damon MD, R1) Physical Exam Vital Signs Vital Signs Date Time Temp Pulse Resp B/P (MAP) Pulse Ox O2 Delivery O2 Flow Rate FiO2 07/13/17 12:00 97.0 86 16 168/80 (109) 98 07/13/17 08:30 98 Trach Collar 5.00 40 07/13/17 08:00 97.7 87 14 173/79 (110) 98 07/13/17 03:45 92 T-piece 10.00 40 07/13/17 00:00 97.9 90 20 148/70 (96) 97 07/12/17 20:40 93 147/68 (94) 07/12/17 20:00 99.5 89 22 140/73 (95) 96 07/12/17 17:54 96 T-piece 6.00 40 07/12/17 16:00 99.8 78 16 105/52 (69) 90 Physical Exam GENERAL: frail, does not respond to commands at baseline as per nurse SKIN: Cool and dry. Stage IV pressure injury in sacral region HEAD: Normocephalic. EYES: Pupils equal round and reactive. slight scleral icterus. No injection or drainage. ENT: Nose without bleeding, purulent drainage or septal hematoma. Throat unable to access. Patient on T-piece at 5L NECK: Trachea midline. No JVD or lymphadenopathy. CARDIOVASCULAR: Regular rate and rhythm without murmurs, gallops, or rubs. +2 radial pulse BL RESPIRATORY: Clear to auscultation. Breath sounds equal bilaterally. No wheezes , rales, or rhonchi. GASTROINTESTINAL: Abdomen soft, non-tender, nondistended. No hepato-splenomegaly , or palpable masses. MUSCULOSKELETAL: Extremities without clubbing, cyanosis, or edema. No effusion, or edema noted. NEUROLOGICAL: Did not respond to sternum rub or to name when called. Only able to move left hand, spontaneously squeezes hand. Laboratory Date/Time Source Procedure Growth Status 05/08/17 04:44 Blood Peripheral Aerobic Blood Culture - Final NO GROWTH IN 5 DAYS Complete 05/08/17 04:44 Blood Peripheral Anaerobic Blood Culture - Final NO GROWTH IN 5 DAYS Complete 05/29/17 17:15 Stool Stool Stool Occult Blood (JEFFREY) - Final HEMOCCULT NEGATIVE Complete 06/18/17 10:00 Sputum Endotracheal Gram Stain - Final Complete 06/18/17 10:00 Sputum Culture - Final Serratia Marcescens Staphylococcus Aureus Complete 05/25/17 15:00 Urine Catheterized Urine Urine Culture - Final Citrobacter Freundii Complete (Chito Damon MD, R1) Result Diagram: 07/11/17 0358 07/11/17 0353 Imaging Last Impressions Hip and Pelvis X-Ray 07/09/17 0000 Signed Impressions: Service Date/Time: Sunday, July 09, 2017 14:04 - CONCLUSION: Anatomic alignment. Ricardo Middleton MD FACR Chest X-Ray 07/06/17 0600 Signed Impressions: Service Date/Time: Thursday, July 06, 2017 04:24 - CONCLUSION: New bilateral extensive pulmonary parenchymal opacity indicating consolidation versus pulmonary edema. Small to moderate sized bilateral pleural effusions. Robert Knox MD Liver Ultrasound 06/19/17 0000 Signed Impressions: Service Date/Time: June 13:20 - CONCLUSION: 1. Mildly increased echotexture of the liver characteristic of hepatic steatosis. 2. Gallbladder sludge. Obdulio Sam MD Abdomen X-Ray 06/16/17 0000 Signed Impressions: Service Date/Time: Friday, June 16, 2017 04:48 - CONCLUSION: 1. Continued small bowel ileus. There has been no significant change when compared to the prior exam. Toy Duran MD Head CT 05/15/17 0000 Signed Impressions: Service Date/Time: May 19:59 - CONCLUSION: 1. 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 2. No bleed or new/acute infarct. Obdulio Simms MD Gall Bladder Ultrasound 05/08/17 0000 Signed Impressions: Service Date/Time: May 08:23 - CONCLUSION: Focally unremarkable appearance of the gallbladder Obdulio Chun MD Abdomen/Pelvis CT 05/07/17 0000 Signed Impressions: Service Date/Time: Sunday, May 07, 2017 13:23 - CONCLUSION: 1. Large left pneumothorax. 2. Bilateral lower lobe consolidation and bilateral moderate size pleural effusions. 3. Significant soft tissue thickening of the right lateral chest wall and left gluteus muscle. 4. Mild ascites. The findings were called to Dr. Carney. Deangelo Zamora MD Chest CT 04/30/17 0000 Signed Impressions: Service Date/Time: Sunday, April 30, 2017 09:20 - CONCLUSION: 1. Bilateral pulmonary infiltrates more pronounced within the lower lobes with tiny bilateral pleural effusions. Material seen filling the lower lobe bronchi bilaterally either related to purulent material or perhaps mucus plugging. Deangelo Wren Jr., MD Carotid Artery Ultrasound 04/24/17 0000 Signed Impressions: Service Date/Time: April 09:45 - CONCLUSION: 1. No hemodynamically significant carotid artery stenosis. Arnie Middleton MD Hip X-Ray 04/21/17 0000 Signed Impressions: Service Date/Time: Friday, April 21, 2017 11:36 - CONCLUSION: Fluoroscopic images during placement of intramedullary siomara left femur. Benja Ramsey MD (Chito Damon MD, R1) Caprini VTE Risk Assessment Caprini VTE Risk Assessment: Mod/High Risk (score >= 2) Caprini Risk Assessment Model Point Value = 1 Point Value = 2 Point Value = 3 Point Value = 5 Age 41-60 Minor surgery BMI > 25 kg/m2 Swollen legs Varicose veins or History of unexplained or recurrent spontaneous Oral contraceptives or hormone replacement Sepsis (< 1 month) Serious lung disease, including pneumonia (< 1 month) Abnormal pulmonary function Acute myocardial infarction Congestive heart failure (< 1 month) History of inflammatory bowel disease Medical patient at bed rest Age 61-74 Arthroscopic surgery Major open surgery (> 45 min) Laparoscopic surgery (> 45 min) Malignancy Confined to bed (> 72 hours) Immobilizing plaster cast Central venous access Age >= 75 History of VTE Family history of VTE Factor V Leiden Prothrombin [id number] Lupus anticoagulant Anticardiolipin antibodies Elevated serum homocysteine Heparin-induced thrombocytopenia Other congenital or acquired thrombophilia Stroke (< 1 month) Elective arthroplasty Hip, pelvis, or leg fracture Acute spinal cord injury (< 1 month) Prophylaxis Regimen Total Risk Factor Score Risk Level Prophylaxis Regimen 0-1 Low Early ambulation 2 Moderate Order ONE of the following: *Sequential Compression Device (SCD) *Heparin 5000 units SQ BID 3-4 Higher Order ONE of the following medications: *Heparin 5000 units SQ TID *Enoxaparin/Lovenox 40 mg SQ daily (WT < 150 kg, CrCl > 30 mL/min) *Enoxaparin/Lovenox 30 mg SQ daily (WT < 150 kg, CrCl > 10-29 mL/min) *Enoxaparin/Lovenox 30 mg SQ BID (WT < 150 kg, CrCl > 30 mL/min) AND/OR *Sequential Compression Device (SCD) 5 or more Highest Order ONE of the following medications: *Heparin 5000 units SQ TID (Preferred with Epidurals) *Enoxaparin/Lovenox 40 mg SQ daily (WT < 150 kg, CrCl > 30 mL/min) *Enoxaparin/Lovenox 30 mg SQ daily (WT < 150 kg, CrCl > 10-29 mL/min) *Enoxaparin/Lovenox 30 mg SQ BID (WT < 150 kg, CrCl > 30 mL/min) AND *Sequential Compression Device (SCD) (Chito Damon MD, R1) Assessment and Plan Assessment and Plan 76 y/o female with HTN, DM, CVA admitted for DKA and hip fracture. Patient developed massive left MCA stroke, right hemiplegia. Neurology and rewinder operator consulted. Poor prognosis per neurology. Working with palliative care and daughter for goals of care. FM consulted for continual care. Code Status Full code Discussed Condition With Dr. Tran (Chito Damon MD, R1) Attending Attestation THIS CASE WAS DISCUSSED WITH THE RESIDENT PHYSICIANS. I HAVE REVIEWED THE RECORD AND AGREE WITH THE ABOVE NOTE AND PLAN OF CARE WAS DISCUSSED. I HAVE AUTHORIZED THE ORDER FOR ADMISSION TO AN IN-PATIENT STATUS. (Mei Harper MD) Problem List: (1) Acute CVA (cerebrovascular accident) ICD Codes: I63.9 - Cerebral infarction, unspecified Status: Chronic Plan: -Consulted rewinder operator, alfonzo recs: s/p Tracheostomy 05/15 and PEG tube insertion 05/16 with poor prognosis -pt off vent, respiratory status stable, currently on T-piece, FiO2 50, O2 saturations at 96% -Neurosurgery consulted -Recommended conservative management -No improvement in neurological status. As per nurse patient moves left hand spontaneously not on command, open eyes but does not tract or follow commands. -Energy Analyst consulted and appreciated: -Tube feeds: Glucerna 1.5 tube feed @ 45ml/hr 24 hours a day for diet via PEG tube -Physical therapy consulted and appreciated -Consulted palliative care-appreciate recs. appreciate help in talking to her daughter -As per last palliative note on 07/03, daughter continues to want aggressive care. Wishes to continue aggressive medical treatment despite prognosis. -Neurology consulted-appreciate recs: Poor prognosis -Rectal ASA -Lovenox 40mg daily History and imaging: Patient found minimally responsive with neurological deficits around 0820 04/24. Stat CT of head was ordered, which showed large left MCA infarct. Diffuse edema throughout the left MCA distribution, suggested completed infarct. This was discussed and was not a candidate for intracranial intervention. CT (04/30): Reduction in midline shift to 11mm. Unchanged large left MCA infarction. CT head (05/06) shows: Evolving large left-sided MCA territory infarct with minimally improved [id number] subfalcine shift. No intercurrent hemorrhage or other acute abnormality. Echocardiogram- The left ventricular systolic function is low normal with an estimated ejection fraction in the range of 50-55%. Mild concentric left ventricular hypertrophy. Normal left ventricular size. [id number] mitral valve regurgitation. Carotid Artery US- No hemodynamically significant carotid stenosis (2) Sacral decubitus ulcer ICD Codes: L89.159 - Pressure ulcer of sacral region, unspecified stage Status: Chronic Plan: Patient with Stage IV pressure injury over the coccyx. -Wound care consult appreciated: 1. Please cleanse coccyx wound every 3 days and PRN for soiling. 2. Apply Calcium Alginate to open wound bed. 3. Secure with bordered gauze every 3 days and PRN for soiling. 4. Continue to turn patient every 2 hours or PRN for comfort. 5. Use one ultrasorb for moisture. Please use flat sheet for repositioning. -wound dressing changed today 07/13 (3) Anemia ICD Codes: D64.9 - Anemia, unspecified Status: Chronic Plan: s/p 1u of PRBC on 05/28/17. Hgb stable. Most recent H/H 10.09/30. Hemoccult negative on 05/29. - monitor H&H (4) Urinary retention ICD Codes: R33.9 - Retention of urine, unspecified Status: Chronic Plan: -Leavitt cath done because patient was retaining urine with intermittent cath's - Cath last changed 06/25, pt afebrile and WBC WNL since placement - 24hr I/Os= 477ml/950ml -Urine output WNL (5) Type 2 diabetes mellitus ICD Codes: E11.9 - Type 2 diabetes mellitus without complications Status: Chronic Plan: - Continue Levemir 10units Q12h for hyperglycemia, BS goal 140 - low novolog scale 1 SQ Q6hr per protocol, -Glucerna for PEG tube feedings @ 45 ml/hr -Glucagon 1 mg per PRN protocol for hypoglycemia BS <70mg/dL History: Admitted for DKA which has now resolved. Hemoglobin A1C is 12.9. Diabetes Type I is uncontrolled. (6) Hypertension ICD Codes: I10 - Essential (primary) hypertension Status: Chronic Plan: -Antihypertensives to keep SBP<160, as per critical care recs -c/w clonidine 0.1mg Q6h PRN SBP >160 -c/w lisinopril 20mg Q12h po Echocardiogram 04/24 - EF 50 to 55%. Mild concentric LVH. (7) Hip fracture ICD Codes: S72.009A - Fracture of unspecified part of neck of unspecified femur , initial encounter for closed fracture Status: Resolved Plan: S/P left hip reduction and intramedullary nail fixation on 04-21-17 -c/w Calcium/Vitamin D (8) Blood alkaline phosphatase increased compared with prior measurement ICD Codes: R74.8 - Abnormal levels of other serum enzymes Plan: -currently downtrending, will repeat lab in the morning -Most recent Alk P: 650 -continue to monitor (9) Fluids, Electrolytes, and Nutrition Status: Acute Plan: Fluids: through PEG tube Electrolyte: on electrolyte protocol Nutrition: continuous Glucerna tube feeds and free water, pump at 45mls/hr, tolerating feeds well, no residual. Protein 1 pack TID. Supplements: calcium TID and vit D3 QD DVT ppx: SCDs/lovenox 40 mg daily CVA ppx: aspirin 325 mg QD GI ppx: Lansoprazole 30mg qd via NG Colace, dulcolax PRN (Chito Damon MD, R1) Physician Certification 2 Midnight Certification Type: Continued Stay Order for Inpatient Services The services are ordered in accordance with Medicare regulations or non- Medicare payer requirements, as applicable. In the case of services not specified as inpatient-only, they are appropriately provided as inpatient services in accordance with the 2-midnight benchmark. Estimated LOS (days): 2 days is the estimated time the patient will need to remain in the hospital, assuming treatment plan goals are met and no additional complications. Post-Hospital Plan: Not yet determined (Chito Damon MD, R1) 2 Midnight Certification Type: Admission for Inpatient Services Post-Hospital Plan: Hospice (Mei Harper MD) Problem Qualifiers (1) Sacral decubitus ulcer: Qualified Codes: L89.154 - Pressure ulcer of sacral region, stage 4 (2) Type 2 diabetes mellitus: Qualified Codes: E11.9 - Type 2 diabetes mellitus without complications (3) Hypertension: Qualified Codes: I10 - Essential (primary) hypertension (4) Hip fracture: Chito Damon MD, R1 Jul 13, 2017 14:17 Mei Harper MD Jul 14, 2017 15:59
[2017-07-14] VITALS (8 sets, daily range): BP systolic 149–163; BP diastolic 70–82; PULSE 89–94; RESP 16–18; TEMP 96–99.1; O2SAT 94–100
[2017-07-14] MEDS: INSULIN ASPART SUPPLEMENTAL SCALE SQ SCH ×3 (05:00→17:41)
[2017-07-14] MEDS: ARTIFICIAL TEARS OPTH SOLN 15 ML BTL EACH EYE SCH ×3 (05:01→22:36)
[2017-07-14] MEDS: ENOXAPARIN SODIUM 40 MG/0.4 ML SYRINGE SQ SCH (07:47)
[2017-07-14] MEDS: CHOLECALCIFEROL (VIT D3) 5000 UNIT CAP PO SCH (08:14)
[2017-07-14] MEDS: CALCIUM/VITAMIN D 250 MG/125 U TAB PO SCH ×3 (08:14→17:41)
[2017-07-14] MEDS: ASPIRIN 325 MG TAB DOBHOFF SCH (08:14)
[2017-07-14] MEDS: DOCUSATE SODIUM 100 MG/10 ML UDC PO SCH ×2 (08:14→22:15)
[2017-07-14] MEDS: LISINOPRIL 10 MG TAB PO SCH ×2 (08:14→22:15)
[2017-07-14] MEDS: POLYETHYLENE GLYCOL 17 GM PKG PEG SCH (08:14)
[2017-07-14] MEDS: SODIUM CHLORIDE 0.9% FLUSH 5 ML FLUSH IV FLUSH SCH ×2 (08:15→22:14)
[2017-07-14] MEDS: INSULIN DETEMIR 100 UNITS/ML VIAL SQ SCH ×2 (08:17→22:35)
[2017-07-14] MEDS: LANSOPRAZOLE SOLUTAB 30 MG TAB NG SCH (08:17)
[2017-07-14] MEDS: BENEPROTEIN POWDER 1 PACK G-TUBE SCH ×3 (08:30→17:45)
[2017-07-14 08:44] LABS: HEMOGLOBIN 10.3 GM/DL (11.6-15.3)
[2017-07-14 08:51] LABS: ALBUMIN 2.5 GM/DL (3.4-5.0); ALKALINE PHOSPHATASE 681 U/L (45-117); ALT (GPT) 41 U/L (10-53); AST (GOT) 53 U/L (15-37); BICARBONATE 36.6 MEQ/L (21.0-32.0); BLOOD UREA NITROGEN 59 MG/DL (7-18); CALCIUM 9.3 MG/DL (8.5-10.1); CHLORIDE 119 MEQ/L (98-107); CREATININE 0.58 MG/DL (0.50-1.00); GLOMERULAR FILTRATION RATE 102 ML/MIN (>89); GLUCOSE,RANDOM 210 MG/DL (74-106); TOTAL BILIRUBIN ADULT 0.2 MG/DL (0.2-1.0)
[2017-07-14 08:56] LABS: SODIUM (NA) 159 MEQ/L (136-145)
[2017-07-14] MEDS ORDERED: SODIUM CHLOR 0.9% 1000 ML INJ 1,000 ML IV SCH (14:45)
--- NOTE | 2017-07-14 15:51 | HHI.FPPN ---
Subjective Subjective 76 year old woman that has been in the hospital since April -- was admitted for hip fracture and then have MCA CVA with resultant hemiplegia and encephalopathy that has not improved. Course was complicated by respiratory failure and she is now ventilatory dependent on T-piece. She has had no significant clinical improvement but she has been transferred to the regular floor and to our service as she no longer need critical care service. On exam this morning she is not responsive at all, sitting in chair with left hand in restraint. Daughter or other family member is not present. [facility] Objective Objective Last Impressions Hip and Pelvis X-Ray 07/09/17 0000 Signed Impressions: Service Date/Time: Sunday, July 09, 2017 14:04 - CONCLUSION: Anatomic alignment. Ricardo Mdidleton MD FACR Chest X-Ray 07/06/17 0600 Signed Impressions: Service Date/Time: Thursday, July 06, 2017 04:24 - CONCLUSION: New bilateral extensive pulmonary parenchymal opacity indicating consolidation versus pulmonary edema. Small to moderate sized bilateral pleural effusions. Robert Knox MD Liver Ultrasound 06/19/17 0000 Signed Impressions: Service Date/Time: June 13:20 - CONCLUSION: 1. Mildly increased echotexture of the liver characteristic of hepatic steatosis. 2. Gallbladder sludge. Obdulio Sam MD Abdomen X-Ray 06/16/17 0000 Signed Impressions: Service Date/Time: Friday, June 16, 2017 04:48 - CONCLUSION: 1. Continued small bowel ileus. There has been no significant change when compared to the prior exam. Toy Duran MD Head CT 05/15/17 0000 Signed Impressions: Service Date/Time: May 19:59 - CONCLUSION: 1. 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 2. No bleed or new/acute infarct. Obdulio Simms MD Gall Bladder Ultrasound 05/08/17 0000 Signed Impressions: Service Date/Time: May 08:23 - CONCLUSION: Focally unremarkable appearance of the gallbladder Obdulio Chun MD Abdomen/Pelvis CT 05/07/17 0000 Signed Impressions: Service Date/Time: Sunday, May 07, 2017 13:23 - CONCLUSION: 1. Large left pneumothorax. 2. Bilateral lower lobe consolidation and bilateral moderate size pleural effusions. 3. Significant soft tissue thickening of the right lateral chest wall and left gluteus muscle. 4. Mild ascites. The findings were called to Dr. Carney. Deangelo Zamora MD Chest CT 04/30/17 0000 Signed Impressions: Service Date/Time: Sunday, April 30, 2017 09:20 - CONCLUSION: 1. Bilateral pulmonary infiltrates more pronounced within the lower lobes with tiny bilateral pleural effusions. Material seen filling the lower lobe bronchi bilaterally either related to purulent material or perhaps mucus plugging. Deangelo Wren Jr., MD Carotid Artery Ultrasound 04/24/17 0000 Signed Impressions: Service Date/Time: April 09:45 - CONCLUSION: 1. No hemodynamically significant carotid artery stenosis. Arnie Middleton MD Hip X-Ray 04/21/17 0000 Signed Impressions: Service Date/Time: Friday, April 21, 2017 11:36 - CONCLUSION: Fluoroscopic images during placement of intramedullary siomara left femur. Benja Ramsey MD Laboratory Tests - Abnormals Test 07/14/17 07:47 Hemoglobin 10.3 GM/DL Hematocrit 32.0 % Blood Urea Nitrogen 59 MG/DL Random Glucose 210 MG/DL Albumin 2.5 GM/DL Alkaline Phosphatase 681 U/L Aspartate Amino Transf (AST/SGOT) 53 U/L Sodium Level 159 MEQ/L Chloride Level 119 MEQ/L Carbon Dioxide Level 36.6 MEQ/L Anion Gap 3 MEQ/L Vital Signs 07/13/17 07/13/17 07/13/17 07/13/17 16:00 16:46 20:00 20:00 Temp 96.8 96.5 Pulse 91 83 Resp 15 17 B/P (MAP) 154/69 (97) 158/72 (100) Pulse Ox 93 96 96 O2 Delivery T-piece T-Piece Humidified O2 Flow Rate 6.00 FiO2 50 07/14/17 07/14/17 07/14/17 07/14/17 00:00 00:37 08:00 08:19 Temp 96.1 98.7 Pulse 94 92 Resp 18 18 B/P (MAP) 156/70 (98) 163/72 (102) Pulse Ox 94 94 97 94 O2 Delivery T-piece FiO2 50 07/14/17 07/14/17 08:30 12:00 Temp 98.6 Pulse 93 Resp 18 B/P (MAP) 156/82 (106) Pulse Ox 94 100 O2 Delivery Mechanical Ventilator Trach Collar T-Piece Humidified O2 Flow Rate 7.00 INTAKE & OUTPUT 07/15/17 07:00 Intake Total 500 ml Output Total 0 ml Balance 500 ml Physical exam O. CONSTITUTIONAL/GEN: thin, not responsive in any way, unable to move any limb on command or open eyes, no response to sternal rub EYES: conjunctiva normal, PERRLA, EOMI. NECK: T=piece in place LUNGS: clear anteriorly CARDIOVASCULAR: RR without murmur or gallop. GI/ABD: soft without masses, without organomegaly, tube feeds going : moser cath in place NEURO: nonresponsive, hemiplegia, some spastic movement of the left arm SKIN: sacral decub HEME/LYMPH: no bruising, petechia or significant adenopathy Assessment Assessment: (1) Encephalopathy (2) CVA (cerebral vascular accident) (3) Suspected stroke patient last known to be well more than 2 hours ago (4) Acute ischemic left middle cerebral artery (MCA) stroke Plan: For the above Neurologic issues reviewed the chart and patient with MCA stroke that has resulted in severe neurologic compromise that has not improved. Last CT from 05/15 reviewed and agree with the assessment 5.5mm rightward midline Shift. Both neurology and neurosurgery have evaluated the patient and feel that conservative therapy is the right option for this patient. Patient has been in the hospital since April with no appreciable improvement in her neurologic status. Cont with conservative management and supportive care. ASA per feeding tube only. Apparantly the patients daughter is the next of kin and decision maker and has unrealistic expectations of improvement. Reviewed the last notes from palliative care. The resident team will open up a line of communication with the patients daughter again to discuss patients care and lack of improvement. The patient would be best cared for with palliative/hospice care. (5) Sacral decubitus ulcer (6) Intertrochanteric fracture of left hip (7) Vitamin D deficiency Plan: For the above musculoskeletal issues she is s/p sugical correction for the fracture. She is unable to move or ambulate on her own. Continue calcium vitamin D 250/125 one tablet 3x a day and cholecalciferol 5000 units daily. PT/OT evaluate and treat Maxsorb every 3 days/dressing changes every 3 days per wound care Continue bene protein one packet 3x a day (8) Chronic respiratory failure Plan: Patient currently on T-piece on 50%FIO2 she has h/o Acute resp failure from possible aspiration HCAP which has now resolved. She also had pneumothorax treated with chest tube from -05/12 which has now resolved. patient has made no gains in respiratory function and anticipate she will need continued ventilatory support (9) Fluids, Electrolytes, and Nutrition Plan: continue tube feeds and PPI change from lovenox to Heparin Assessment 76 year old women that has remained encephalopathic and obtunded since CVA in April with no gains in respiratory or neurologic symptoms. Very poor prognosis and Hospice/palliative care is definitely appropriate at this time. Patient's daughter apparently is not willing and has unrealistic expectations of a recovery. Will attempt to speak with daughter on a regular basis, attempt to find a extermination supervisor care facility for this patient as she is currently only receiving supportive therapy and appears to be stabilized. PLAN PLAN Patient seen and dw the resident team -- Dr. Damon, Dr. Watts, Dr. Marc Harper,Mei Mukherjee MD Jul 14, 2017 15:51
[2017-07-14 23:23] LABS: BICARBONATE 33.6 MEQ/L (21.0-32.0); CALCIUM 9.2 MG/DL (8.5-10.1); CREATININE 0.47 MG/DL (0.50-1.00)
[2017-07-15] VITALS (7 sets, daily range): BP systolic 111–142; BP diastolic 57–85; PULSE 84–101; RESP 16–18; TEMP 96.5–98.9; O2SAT 92–100
[2017-07-15] MEDS: INSULIN ASPART SUPPLEMENTAL SCALE SQ SCH ×4 (00:39→18:00)
[2017-07-15] MEDS: ARTIFICIAL TEARS OPTH SOLN 15 ML BTL EACH EYE SCH ×3 (05:42→20:45)
[2017-07-15 08:57] LABS: BICARBONATE 29.3 MEQ/L (21.0-32.0); CALCIUM 9.1 MG/DL (8.5-10.1); CREATININE 0.77 MG/DL (0.50-1.00)
--- NOTE | 2017-07-15 08:58 | HHI.FPPN ---
Subjective Remarks This morning on arrival to bedside patient with hypoxia (SpO2 66-77). Still unable to awaken and non-communicative (same as baseline). (Klaus Tran MD R2) Objective Vitals Vital Signs Date Time Temp Pulse Resp B/P (MAP) Pulse Ox O2 Delivery O2 Flow Rate FiO2 07/15/17 00:00 97.4 101 16 142/85 (104) 92 07/14/17 21:28 94 T-piece 50 07/14/17 20:00 96.0 93 16 149/72 (97) 94 07/14/17 16:00 99.1 89 18 159/80 (106) 99 07/14/17 12:00 98.6 93 18 156/82 (106) 100 I/O 07/14/17 07/14/17 07/14/17 07/15/17 07/15/17 07/15/17 07:00 15:00 23:00 07:00 15:00 23:00 Intake Total 320 ml 500 ml 450 ml 750 ml Output Total 675 ml 0 ml 450 ml 650 ml Balance -355 ml 500 ml 0 ml 100 ml Tube Feeding 270 ml 200 ml 250 ml Tube Irrigant 50 ml Other 500 ml 250 ml 500 ml Output Urine Total 675 ml 450 ml 650 ml Tube Feeding Residual Discard 0 ml # Bowel Movements 1 4 2 (Klaus Tran MD R2) Result Diagram: 07/14/1774607/14/172151 Objective Remarks CONSTITUTIONAL/GEN: Nonverbal, lying in bed with tracheostomy and PEG tubes in place with head turned to left. HEAD: Normocephalic. Atraumatic. Right side facial droop. LUNGS: On vent, has not been tolerating CPAP trials. Now with decreased breath sounds on the left side, but clear vesicular lung sounds bilaterally CARDIOVASCULAR: Regular rate and rhythm. Pitting edema of hands 1+ on left, Pitting edema of R foot 2+, no pitting edema on L leg and foot. GI/ABD: active BS w/o guarding or rebound. no grimacing with palpation. Glucerna 1.5 tube feed @ 45ml/hr. Abdomen non-distended NEURO: Flaccid paralysis on the right side. Moves left UE and LE spontaneously and intermittently. MUSC: SCDs on bilateral lower extremities. Pedal pulses present. SKIN: Sacral pressure ulcer extends from anus to coccyx. Procedures ORIF 04/21/17 Intubation 04/30/17 (Klaus Tran MD R2) A/P Assessment and Plan 76 y/o female with HTN, DM, CVA admitted for DKA and hip fracture. Patient developed massive left MCA stroke, right hemiplegia. Neurology and machine leather trimmer consulted. Poor prognosis per neurology. Working with palliative care and daughter for goals of care. consulted for continual care. Discharge Planning There is nothing more for family medicine to do, we are signing off and transferring patient to Dr. Saleh, with plans for transfer to [facility] for long- term care Pending discussion for goals of care She has no Insurance. Medicaid was applied for and she cannot have this as she is not a [place] citizen and has not lived in the [place] long enough. She cannot go to a vent facility nor a SNF without insurance. Case management explained that to her daughter. Daughter continues to want aggressive management, recent attempts at family meeting unsuccessful. (Klaus Tran MD R2) Attending Attestation Patient seen and examined. Case reviewed and discussed with the resident team. Agree with plan of care as discussed with me and documented in the resident note. (Mei Harper MD) Problem List: (1) Hypernatremia ICD Codes: E87.0 - Hyperosmolality and hypernatremia Status: Acute Plan: Now resolving, likely due to poor hydration status Item Value Date Time Sodium Level 159 MEQ/L *H 07/14/17 0747 Sodium Level 157 MEQ/L *H 07/14/17 2152 Sodium Level 152 MEQ/L H 07/15/17 0808 - Continue 200 mL water via PEG tube Q4H - Previously on NS at 42 cc/hr, discontinued after 1 L total - Check sodium daily until stable (2) Acute CVA (cerebrovascular accident) ICD Codes: I63.9 - Cerebral infarction, unspecified Status: Chronic Plan: Neurologically stable, no improvement. Overall prognosis is poor. Today with some new oxygen requirement. Work-up including CXR, ABG, and CBC + UA. CBC with leukocytosis, no signs of infection on exam. Urine cloudy, Leavitt changed and sent urine for collection. Culture pending. CXR with mild pulmonary edema -DC IV fluids (see above) -Titrate oxygen via trach to maintain O2 saturation above 92% (at time of eval was 92-94 on 100% FIO2) -Neurosurgery consulted, now signed off -Recommended conservative management -No improvement in neurological status. As per nurse patient moves left hand spontaneously not on command, open eyes but does not tract or follow commands. -Production Specialist consulted and appreciated: -Tube feeds: Glucerna 1.5 tube feed @ 45ml/hr 24 hours a day for diet via PEG tube -Physical therapy consulted and appreciated -Consulted palliative care-appreciate recs. appreciate help in talking to her daughter -As per last palliative note on 07/03, daughter continues to want aggressive care. Wishes to continue aggressive medical treatment despite prognosis. -Neurology consulted, now signed off. Appreciate recs: Poor prognosis -Rectal ASA -Lovenox 40mg daily History and imaging: Patient found minimally responsive with neurological deficits around 0820 04/24. Stat CT of head was ordered, which showed large left MCA infarct. Diffuse edema throughout the left MCA distribution, suggested completed infarct. This was discussed and was not a candidate for intracranial intervention. CT (04/30): Reduction in midline shift to 11mm. Unchanged large left MCA infarction. CT head (05/06) shows: Evolving large left-sided MCA territory infarct with minimally improved hvxu-yu-yezzv subfalcine shift. No intercurrent hemorrhage or other acute abnormality. Echocardiogram- The left ventricular systolic function is low normal with an estimated ejection fraction in the range of 50-55%. Mild concentric left ventricular hypertrophy. Normal left ventricular size. Faeqx-ey-evzd mitral valve regurgitation. Carotid Artery US- No hemodynamically significant carotid stenosis (3) Sacral decubitus ulcer ICD Codes: L89.159 - Pressure ulcer of sacral region, unspecified stage Status: Chronic Plan: Patient with Stage IV pressure injury over the coccyx. -Wound care consult appreciated: 1. Please cleanse coccyx wound every 3 days and PRN for soiling. 2. Apply Calcium Alginate to open wound bed. 3. Secure with bordered gauze every 3 days and PRN for soiling. 4. Continue to turn patient every 2 hours or PRN for comfort. 5. Use one ultrasorb for moisture. Please use flat sheet for repositioning. -wound dressing changed today 07/13 (4) Anemia ICD Codes: D64.9 - Anemia, unspecified Status: Chronic Plan: s/p 1u of PRBC on 05/28/17. Hgb stable. Most recent H/H 10.09/30. Hemoccult negative on 05/29. - monitor H&H (5) Urinary retention ICD Codes: R33.9 - Retention of urine, unspecified Status: Chronic Plan: -Leavitt cath done because patient was retaining urine with intermittent cath's - Cath last changed 06/25, pt afebrile and WBC WNL since placement - 24hr I/Os= 477ml/950ml -Urine output WNL (6) Type 2 diabetes mellitus ICD Codes: E11.9 - Type 2 diabetes mellitus without complications Status: Chronic Plan: - Continue Levemir 10units Q12h for hyperglycemia, BS goal 140 - low novolog scale 1 SQ Q6hr per protocol, -Glucerna for PEG tube feedings @ 45 ml/hr -Glucagon 1 mg per PRN protocol for hypoglycemia BS <70mg/dL History: Admitted for DKA which has now resolved. Hemoglobin A1C is 12.9. Diabetes Type I is uncontrolled. (7) Hip fracture ICD Codes: S72.009A - Fracture of unspecified part of neck of unspecified femur , initial encounter for closed fracture Status: Resolved Plan: S/P left hip reduction and intramedullary nail fixation on 04-21-17 -c/w Calcium/Vitamin D (8) Blood alkaline phosphatase increased compared with prior measurement ICD Codes: R74.8 - Abnormal levels of other serum enzymes Plan: -currently downtrending, will repeat lab in the morning -Most recent Alk P: 650 -continue to monitor (9) Fluids, Electrolytes, and Nutrition Status: Acute Plan: Fluids: through PEG tube Electrolyte: on electrolyte protocol Nutrition: continuous Glucerna tube feeds and free water, pump at 45mls/hr, tolerating feeds well, no residual. Protein 1 pack TID. Supplements: calcium TID and vit D3 QD DVT ppx: SCDs/lovenox 40 mg daily CVA ppx: aspirin 325 mg QD GI ppx: Lansoprazole 30mg qd via NG Colace, dulcolax PRN (10) Hypertension ICD Codes: I10 - Essential (primary) hypertension Status: Chronic Plan: -Antihypertensives to keep SBP<160, as per critical care recs -c/w clonidine 0.1mg Q6h PRN SBP >160 -c/w lisinopril 20mg Q12h po Echocardiogram 04/24 - EF 50 to 55%. Mild concentric LVH. (Klaus Tran MD R2) Problem Qualifiers (1) Sacral decubitus ulcer: Qualified Codes: L89.154 - Pressure ulcer of sacral region, stage 4 (2) Type 2 diabetes mellitus: Qualified Codes: E11.9 - Type 2 diabetes mellitus without complications (3) Hip fracture: (4) Hypertension: Qualified Codes: I10 - Essential (primary) hypertension Klaus Tran MD R2 Jul 15, 2017 08:58 Mei Harper MD Jul 16, 2017 12:51
[2017-07-15] MEDS: SODIUM CHLORIDE 0.9% FLUSH 5 ML FLUSH IV FLUSH SCH ×2 (09:00→20:45)
[2017-07-15] MEDS: BENEPROTEIN POWDER 1 PACK G-TUBE SCH ×3 (09:00→18:00)
[2017-07-15] MEDS: POLYETHYLENE GLYCOL 17 GM PKG PEG SCH (09:00)
[2017-07-15] MEDS: DOCUSATE SODIUM 100 MG/10 ML UDC PO SCH ×2 (09:00→20:45)
[2017-07-15] MEDS: CALCIUM/VITAMIN D 250 MG/125 U TAB PO SCH ×3 (09:16→18:05)
[2017-07-15] MEDS: LISINOPRIL 10 MG TAB PO SCH ×2 (09:17→20:45)
[2017-07-15] MEDS: ASPIRIN 325 MG TAB DOBHOFF SCH (09:17)
[2017-07-15] MEDS: CHOLECALCIFEROL (VIT D3) 5000 UNIT CAP PO SCH (09:18)
[2017-07-15] MEDS: LANSOPRAZOLE SOLUTAB 30 MG TAB NG SCH (09:18)
[2017-07-15] MEDS: INSULIN DETEMIR 100 UNITS/ML VIAL SQ SCH ×2 (09:30→22:20)
[2017-07-15] MEDS: HEPARIN SODIUM - SQ 10,000 UNITS/ML VIAL SQ SCH ×3 (09:30→20:44)
--- NOTE | 2017-07-15 09:56 | RADRPT ---
EXAM DATE/TIME: 07/15/2017 08:59 [facility] COMPARISON: CHEST SINGLE AP, July 06, 2017, 4:24. INDICATIONS : Short of breath. MEDICAL HISTORY : Cerebrovascular disease. Hypertension. SURGICAL HISTORY : None. ENCOUNTER: Subsequent ACUITY: 4 - 6 days PAIN SCORE: 0/10 LOCATION: Bilateral chest FINDINGS: A single portable frontal view the chest shows mild cardiomegaly. There is pulmonary vascular engorge ment. Tiny bilateral pleural effusions. Scattered interstitial prominence with bibasilar intralobular opacities. A degenerative thoracic spine. Tracheostomy tube. CONCLUSION: Radiographic pattern most consistent with intra-alveolar pulmonary edema. Deangelo Wren Jr., MD on July 15, 2017 at 9:50 Board Certified Radiologist. This report was verified electronically.
[2017-07-15 11:08] LABS: BACTERIA, URINE MANY /hpf; BILIRUBIN, URINE NEG (NEG); BLOOD, URINE MOD (NEG); GLUCOSE,URINE NEG (NEG); KETONE, URINE NEG (NEG); NITRITE,URINE NEG (NEG); PH, URINE 5.5 (5.0-8.5); SQUAMOUS EPITHELIAL CELL URINE 2 /hpf (0-5); TRANSITIONAL EPI CELLS, URINE 1 /hpf; URINE COLOR YELLOW (YELLW/STRAW); URINE LEUKOCYTE ESTERASE LARGE (NEG); WHITE BLOOD CELL CLUMPS MOD
[2017-07-15 11:27] LABS: BASOPHIL # 0.1 TH/MM3 (0-0.2); BASOPHIL % 1.1 % (0.0-2.0); EOSINOPHIL % 0.1 % (0.0-4.0); HEMATOCRIT 31.7 % (35.0-46.0); HEMOGLOBIN 10.1 GM/DL (11.6-15.3); LYMPH % 21.2 % (9.0-44.0); LYMPHOCYTE # 2.5 TH/MM3 (1.0-4.8); MEAN CELL VOLUME 98.5 FL (80.0-100.0); MEAN CORPUSCULAR HEMOGLOBIN 31.5 PG (27.0-34.0); MEAN PLATELET VOLUME 10.4 FL (7.0-11.0); MONO % 8.3 % (0.0-8.0); NEUT % 69.3 % (16.0-70.0); PLATELET COUNT 280 TH/MM3 (150-450); RED BLOOD COUNT 3.21 MIL/MM3 (4.00-5.30); RED CELL DISTRIBUTION WIDTH 17.1 % (11.6-17.2); WHITE BLOOD COUNT 11.6 TH/MM3 (4.0-11.0)
[2017-07-15 12:14] LABS: BANDS 18 % (0-6); BASOPHILS 1 % (0-2); LYMPHOCYTES 19 % (9-44); MONOCYTES 7 % (0-8); NEUTROPHIL # MANUAL DIFF 8.5 TH/MM3 (1.8-7.7); POLYS (SEG NEUTROPHILS) 55 % (16-70)
[2017-07-16] VITALS (7 sets, daily range): BP systolic 136–165; BP diastolic 71–85; PULSE 81–89; RESP 16–18; TEMP 96.1–98; O2SAT 91–100
[2017-07-16] MEDS: INSULIN ASPART SUPPLEMENTAL SCALE SQ SCH ×3 (04:57→12:00)
[2017-07-16] MEDS: HEPARIN SODIUM - SQ 10,000 UNITS/ML VIAL SQ SCH ×3 (04:57→21:35)
[2017-07-16] MEDS: ARTIFICIAL TEARS OPTH SOLN 15 ML BTL EACH EYE SCH ×3 (04:57→21:35)
[2017-07-16 08:06] LABS: HEMATOCRIT 29.4 % (35.0-46.0); HEMOGLOBIN 9.6 GM/DL (11.6-15.3); MEAN CELL VOLUME 98.6 FL (80.0-100.0); MEAN CORPUSCULAR HEMOGLOBIN 32.1 PG (27.0-34.0); MEAN CORPUSCULAR HGB CONC 32.6 % (32.0-36.0); MEAN PLATELET VOLUME 10.9 FL (7.0-11.0); PLATELET COUNT 247 TH/MM3 (150-450); RED BLOOD COUNT 2.98 MIL/MM3 (4.00-5.30); RED CELL DISTRIBUTION WIDTH 17.6 % (11.6-17.2); WHITE BLOOD COUNT 9.5 TH/MM3 (4.0-11.0)
[2017-07-16 08:20] LABS: BICARBONATE 33.6 MEQ/L (21.0-32.0); CALCIUM 8.7 MG/DL (8.5-10.1); CREATININE 0.39 MG/DL (0.50-1.00)
[2017-07-16] MEDS: POLYETHYLENE GLYCOL 17 GM PKG PEG SCH (09:00)
[2017-07-16] MEDS: INSULIN DETEMIR 100 UNITS/ML VIAL SQ SCH ×2 (09:00→22:00)
[2017-07-16] MEDS: DOCUSATE SODIUM 100 MG/10 ML UDC PO SCH ×2 (09:00→21:00)
[2017-07-16] MEDS: SODIUM CHLORIDE 0.9% FLUSH 5 ML FLUSH IV FLUSH SCH ×2 (10:01→21:35)
[2017-07-16] MEDS: LISINOPRIL 10 MG TAB PO SCH ×2 (10:02→21:35)
[2017-07-16] MEDS: BENEPROTEIN POWDER 1 PACK G-TUBE SCH ×3 (10:02→18:28)
[2017-07-16] MEDS: ASPIRIN 325 MG TAB DOBHOFF SCH (10:03)
[2017-07-16] MEDS: CHOLECALCIFEROL (VIT D3) 5000 UNIT CAP PO SCH (10:03)
[2017-07-16] MEDS: LANSOPRAZOLE SOLUTAB 30 MG TAB NG SCH (10:03)
[2017-07-16] MEDS: CALCIUM/VITAMIN D 250 MG/125 U TAB PO SCH ×3 (10:03→18:27)
--- NOTE | 2017-07-16 10:17 | HHI.FPPN ---
Subjective Remarks Lying in bed asleep, unable to be aroused. No acute events overnight. Vital signs as below. Nursing reports thick respiratory secretions. (Klaus Tran MD R2) Objective Vitals Vital Signs Date Time Temp Pulse Resp B/P (MAP) Pulse Ox O2 Delivery O2 Flow Rate FiO2 07/16/17 09:13 96 T-piece 50 07/16/17 08:00 96.4 81 16 138/72 (94) 96 07/16/17 00:00 96.8 84 18 136/71 (92) 96 07/15/17 21:28 99 T-piece 40 07/15/17 20:45 T-Piece 7.00 40 Humidified 07/15/17 20:00 96.5 84 18 129/65 (86) 100 07/15/17 16:00 97.8 86 16 136/71 (92) 97 07/15/17 12:58 95 T-piece 50 07/15/17 12:00 98.6 84 16 111/57 (75) 97 I/O 07/15/17 07/15/17 07/15/17 07/16/17 07/16/17 07/16/17 07:00 15:00 23:00 07:00 15:00 23:00 Intake Total 750 ml 1000 ml 250 ml 1643 ml Output Total 650 ml 775 ml 1600 ml Balance 100 ml 1000 ml -525 ml 43 ml Intake Oral 0 ml IV Total 1000 ml Tube Feeding 250 ml 1143 ml Other 500 ml 250 ml 500 ml Output Urine Total 650 ml 775 ml 1600 ml # Bowel Movements 2 4 2 (Klaus Tran MD R2) Result Diagram: 07/16/1731 07/16/1731 Imaging Last Impressions Chest X-Ray 07/15/17 0000 Signed Impressions: Service Date/Time: Saturday, July 15, 2017 08:59 - CONCLUSION: Radiographic pattern most consistent with intra-alveolar pulmonary edema. Deangelo Wren Jr., MD Hip and Pelvis X-Ray 07/09/17 0000 Signed Impressions: Service Date/Time: Sunday, July 09, 2017 14:04 - CONCLUSION: Anatomic alignment. Ricardo Middleton MD FACR Liver Ultrasound 06/19/17 0000 Signed Impressions: Service Date/Time: June 13:20 - CONCLUSION: 1. Mildly increased echotexture of the liver characteristic of hepatic steatosis. 2. Gallbladder sludge. Obdulio Sam MD Abdomen X-Ray 06/16/17 0000 Signed Impressions: Service Date/Time: Friday, June 16, 2017 04:48 - CONCLUSION: 1. Continued small bowel ileus. There has been no significant change when compared to the prior exam. Toy Duran MD Head CT 05/15/17 0000 Signed Impressions: Service Date/Time: May 19:59 - CONCLUSION: 1. 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 2. No bleed or new/acute infarct. Obdulio Simms MD Gall Bladder Ultrasound 05/08/17 0000 Signed Impressions: Service Date/Time: May 08:23 - CONCLUSION: Focally unremarkable appearance of the gallbladder Obdulio Chun MD Abdomen/Pelvis CT 05/07/17 0000 Signed Impressions: Service Date/Time: Sunday, May 07, 2017 13:23 - CONCLUSION: 1. Large left pneumothorax. 2. Bilateral lower lobe consolidation and bilateral moderate size pleural effusions. 3. Significant soft tissue thickening of the right lateral chest wall and left gluteus muscle. 4. Mild ascites. The findings were called to Dr. Carney. Deangelo Zamora MD Chest CT 04/30/17 0000 Signed Impressions: Service Date/Time: Sunday, April 30, 2017 09:20 - CONCLUSION: 1. Bilateral pulmonary infiltrates more pronounced within the lower lobes with tiny bilateral pleural effusions. Material seen filling the lower lobe bronchi bilaterally either related to purulent material or perhaps mucus plugging. Deangelo Wren Jr., MD Carotid Artery Ultrasound 04/24/17 0000 Signed Impressions: Service Date/Time: April 09:45 - CONCLUSION: 1. No hemodynamically significant carotid artery stenosis. Arnie Middleton MD Hip X-Ray 04/21/17 0000 Signed Impressions: Service Date/Time: Friday, April 21, 2017 11:36 - CONCLUSION: Fluoroscopic images during placement of intramedullary siomara left femur. Benja Ramsey MD Objective Remarks CONSTITUTIONAL/GEN: Nonverbal, lying in bed with tracheostomy and PEG tubes in place with head turned to left. HEAD: Normocephalic. Atraumatic. Right side facial droop. LUNGS: CTAB. Breathing spontaneously via T-tube. CARDIOVASCULAR: Regular rate and rhythm. GI/ABD: active BS w/o guarding or rebound. no grimacing with palpation. Glucerna 1.5 tube feed @ 45ml/hr. Abdomen non-distended NEURO: Grimace to sternal rub, occasionally will open eyes but does not track; no meaningful response to voice or commands. Flaccid paralysis on the right side. Moves left UE and LE spontaneously and intermittently. MUSC: SCDs on bilateral lower extremities. Pedal pulses present. SKIN: Sacral pressure ulcer extends from anus to coccyx. Procedures ORIF 04/21/17 Intubation 04/30/17 (Klaus Tran MD R2) A/P Assessment and Plan 76 y/o female with HTN, DM admitted for DKA and hip fracture s/p stroke on POD# 3 after ORIF (Klaus Tran MD R2) Attending Attestation Patient seen and examined. Case reviewed and discussed with the resident team. Agree with plan of care as discussed with me and documented in the resident note. (Mei Harper MD) Problem List: (1) Hypernatremia ICD Codes: E87.0 - Hyperosmolality and hypernatremia Status: Acute Plan: Now resolving, likely due to poor hydration status Item Value Date Time Sodium Level 159 MEQ/L *H 07/14/17 0747 Sodium Level 157 MEQ/L *H 07/14/17 2152 Sodium Level 152 MEQ/L H 07/15/17 0808 Sodium Level 153 MEQ/L H 07/16/17 0731 - Continue 200 mL water via PEG tube Q4H - Previously on NS at 42 cc/hr, discontinued after 1 L total - Check sodium daily until stable (2) Acute CVA (cerebrovascular accident) ICD Codes: I63.9 - Cerebral infarction, unspecified Status: Chronic Plan: Neurologically stable, no improvement. Overall prognosis is poor. Had new oxygen requirement on 07/15. CXR showed mild pulmonary edema. UA with moderate leukocyte esterase, culture pending. Leavitt changed. Oxygen requirement now decreased but occasionally will need higher FIO2 to maintain saturations above 92%. -DC IV fluids (see above) -Titrate oxygen via trach to maintain O2 saturation above 92% -Neurosurgery consulted, now signed off -Recommended conservative management -No improvement in neurological status. As per nurse patient moves left hand spontaneously not on command, open eyes but does not tract or follow commands. -Nursing Project Coordinator consulted and appreciated -Tube feeds: Glucerna 1.5 tube feed @ 45ml/hr 24 hours a day for diet via PEG tube -Physical therapy consulted and appreciated -Consulted palliative care-appreciate recs. appreciate help in talking to her daughter -As per last palliative note on 07/03, daughter continues to want aggressive care. Wishes to continue aggressive medical treatment despite prognosis -Ongoing discussion with daughter regarding poor prognosis, realistic goals of care -Neurology consulted, now signed off. Appreciate recs: Poor prognosis -Rectal ASA -Prophylactic anticoagulation (SQ heparin TID) History and imaging: Patient found minimally responsive with neurological deficits around 0820 04/24. Stat CT of head was ordered, which showed large left MCA infarct. Diffuse edema throughout the left MCA distribution, suggested completed infarct. This was discussed and was not a candidate for intracranial intervention. CT (04/30): Reduction in midline shift to 11mm. Unchanged large left MCA infarction. CT head (05/06) shows: Evolving large left-sided MCA territory infarct with minimally improved yywy-vm-owgrt subfalcine shift. No intercurrent hemorrhage or other acute abnormality. Echocardiogram- The left ventricular systolic function is low normal with an estimated ejection fraction in the range of 50-55%. Mild concentric left ventricular hypertrophy. Normal left ventricular size. Bykqk-[id number]-papl mitral valve regurgitation. Carotid Artery US- No hemodynamically significant carotid stenosis (3) Sacral decubitus ulcer ICD Codes: L89.159 - Pressure ulcer of sacral region, unspecified stage Status: Chronic Plan: Patient with Stage IV pressure injury over the coccyx. -Wound care consult appreciated: 1. Please cleanse coccyx wound every 3 days and PRN for soiling. 2. Apply Calcium Alginate to open wound bed. 3. Secure with bordered gauze every 3 days and PRN for soiling. 4. Continue to turn patient every 2 hours or PRN for comfort. 5. Use one ultrasorb for moisture. Please use flat sheet for repositioning. -wound dressing changed today 07/13 (4) Anemia ICD Codes: D64.9 - Anemia, unspecified Status: Chronic Plan: s/p 1u of PRBC on 05/28/17. Hgb stable. Most recent H/H 10.09/30. Hemoccult negative on 05/29. - monitor H&H (5) Urinary retention ICD Codes: R33.9 - Retention of urine, unspecified Status: Chronic Plan: -Leavitt cath done because patient was retaining urine with intermittent cath's - Cath last changed 07/15, pt afebrile -Urine output WNL (6) Type 2 diabetes mellitus ICD Codes: E11.9 - Type 2 diabetes mellitus without complications Status: Chronic Plan: - Continue Levemir 10units Q12h for hyperglycemia, BS goal 140 - low novolog scale 1 SQ Q6hr per protocol, -Glucerna for PEG tube feedings @ 45 ml/hr -Glucagon 1 mg per PRN protocol for hypoglycemia BS <70mg/dL History: Admitted for DKA which has now resolved. Hemoglobin A1C is 12.9. Diabetes Type I is uncontrolled. (7) Hip fracture ICD Codes: S72.009A - Fracture of unspecified part of neck of unspecified femur , initial encounter for closed fracture Status: Resolved Plan: S/P left hip reduction and intramedullary nail fixation on 04-21-17 -c/w Calcium/Vitamin D (8) Blood alkaline phosphatase increased compared with prior measurement ICD Codes: R74.8 - Abnormal levels of other serum enzymes Plan: -currently downtrending -Most recent Alk P: 650 -continue to monitor periodically (9) Hypertension ICD Codes: I10 - Essential (primary) hypertension Status: Chronic Plan: -Antihypertensives to keep SBP<160, as per critical care recs -c/w clonidine 0.1mg Q6h PRN SBP >160 -c/w lisinopril 20mg Q12h po Echocardiogram 04/24 - EF 50 to 55%. Mild concentric LVH. (10) Fluids, Electrolytes, and Nutrition Status: Acute Plan: Fluids: through PEG tube Electrolyte: on electrolyte protocol Nutrition: continuous Glucerna tube feeds and free water, pump at 45mls/hr, tolerating feeds well, no residual. Protein 1 pack TID. Supplements: calcium TID and vit D3 QD DVT ppx: SCDs/heparin CVA ppx: aspirin 325 mg QD GI ppx: Lansoprazole 30mg qd via NG Colace, dulcolax PRN (Klaus Tran MD R2) Problem Qualifiers (1) Sacral decubitus ulcer: Qualified Codes: L89.154 - Pressure ulcer of sacral region, stage 4 (2) Type 2 diabetes mellitus: Qualified Codes: E11.9 - Type 2 diabetes mellitus without complications (3) Hip fracture: (4) Hypertension: Qualified Codes: I10 - Essential (primary) hypertension Klaus Tran MD R2 Jul 16, 2017 10:17 Mei Harper MD Jul 16, 2017 13:00
--- NOTE | 2017-07-16 15:09 | HHI.HCPN ---
Reason for visit a. To assist with evaluation and management of symptoms including: Debility and pain. b. To assist medical decision maker(s) with: better understanding of current medical conditions; weighing benefits/burdens of medical treatment options; making medical treatment decisions. . Subjective/Interval History Mrs. Hein is a 76-year-old female with a past medical history of hypertension, diabetes mellitus and CVA who presented to the ED on 04/20/17 via EMS for evaluation of after a fall. Upon ED admission, random glucose 559. Patient underwent Left hip reduction and intramedullary nail fixation on 04/21/17. Clinical course complicated by large left MCA infarct with diffuse edema throughout the left MCA distribution. Neurology, Dr. Malave consulted. Patient not a candidate for intervention, not a candidate for IV TPA. As per neurology "Christina 4Id the prognosis with a stroke of the size is poor". Palliative care consulted for further clarifications of goals of care given poor prognosis. Patient seen in her room in bed, eyes closed, aroused by noxious stimulation. Patient opens eyes but does not track, patient has left sided gaze. Patient does not follow commands, spontaneously moves left upper extremity and withdraws with left lower extremity, RUE and RLE flaccid. Patient is currently on T-Avilez 40%. Report from bedside RN that patient has copious thick secretions. O2 saturation low 90s. Patient is afebrile. SBP 120s-150s. Urine culture collected 07/15/17 positive for gram-negative juan. Laboratory workup today revealing WBC 9.5, Hgb 9.6, Hct 29.4, Plt count 247, sodium 153, potassium 4.0, BUN/creatinine 60/0.39, random glucose 67, calcium 8.7. Case discussed with bedside RN Kayleigh. Attempted to reach patient`s daughter by telephone but no one answered. . Family/friend interactions Attempted to call patient's daughter, with no response. Advance Directives Living Will: Never completed Health Care Surrogate: Never completed Durable Power of Lithographic Press Feeder: Never completed Advance Directive Specifics Health Care Surrogate(s): No advance directives completed. As per [place] statute, healthcare proxy decision making falls to patient's only daughter Norma Salvador. . Documented care wishes: No living will completed. . Objective Vital Signs Date Time Temp Pulse Resp B/P (MAP) Pulse Ox O2 Delivery O2 Flow Rate FiO2 11/15/17 12:00 97.1 89 16 157/85 (109) 98 07/16/17 09:13 96 T-piece 50 07/16/17 08:00 96.4 81 16 138/72 (94) 96 07/16/17 08:00 90 Trach Collar 7.00 40 07/16/17 00:00 96.8 84 18 136/71 (92) 96 07/15/17 21:28 99 T-piece 40 07/15/17 20:45 T-Piece 7.00 40 Humidified 07/15/17 20:00 96.5 84 18 129/65 (86) 100 07/15/17 16:00 97.8 86 16 136/71 (92) 97 Intake & Output 07/16/17 07/16/17 07:00 19:00 Intake Total 1893 ml Output Total 1600 ml Balance 293 ml Tube Feeding 1143 ml Other 750 ml Output Urine Total 1600 ml # Bowel Movements 2 Physical Exam CONSTITUTIONAL/GENERAL: This is an elderly , ill looking female in bed with no signs of distress noted. TUBES/LINES/DRAINS: PIV's. Tracheostomy on T piece, SCD, PEG tube. SKIN: No jaundice, rashes, or lesions. Ecchymoses on upper extremities. Skin temperature appropriate. Not diaphoretic. NECK: Trachea midline. Supple. Tracheostomy in place. CARDIOVASCULAR: Regular rate and rhythm. Peripheral pulses symmetric. RESPIRATORY/CHEST: Symmetric, tracheostomy. Clear breath sounds bilaterally. GASTROINTESTINAL: Abdomen soft, round, mildly distended. Bowel sounds present. PEG tube in place. GENITOURINARY: Without palpable bladder distension. MUSCULOSKELETAL: Extremities without clubbing, cyanosis. Trace edema to bilateral lower extremities. NEUROLOGICAL: Eyes opening spontaneously, not to command, not tracking. Patient has a left-sided gaze. Spontaneously moves left upper extremity, with gross with left lower extremity, right side flaccid. PSYCHIATRIC: Unable to evaluate secondary to clinical condition. Appears calm. . Diagnostic Tests Laboratory Laboratory Tests Test 07/14/17 07:47 07/14/17 21:52 07/15/17 08:08 07/15/17 09:00 Hemoglobin 10.3 GM/DL (11.6-15.3) Hematocrit 32.0 % (35.0-46.0) Blood Urea Nitrogen 59 MG/DL (7-18) 59 MG/DL (7-18) 75 MG/DL (7-18) Creatinine 0.58 MG/DL (0.50-1.00) 0.47 MG/DL (0.50-1.00) 0.77 MG/DL (0.50-1.00) Random Glucose 210 MG/DL (74-106) 220 MG/DL (74-106) 224 MG/DL (74-106) Total Protein 7.0 GM/DL (6.4-8.2) Albumin 2.5 GM/DL (3.4-5.0) Calcium Level 9.3 MG/DL (8.5-10.1) 9.2 MG/DL (8.5-10.1) 9.1 MG/DL (8.5-10.1) Alkaline Phosphatase 681 U/L (45-117) Aspartate Amino Transf (AST/SGOT) 53 U/L (15-37) Alanine Aminotransferase (ALT/SGPT) 41 U/L (10-53) Total Bilirubin 0.2 MG/DL (0.2-1.0) Sodium Level 159 MEQ/L (136-145) 157 MEQ/L (136-145) 152 MEQ/L (136-145) Potassium Level 4.1 MEQ/L (3.5-5.1) 3.9 MEQ/L (3.5-5.1) 4.5 MEQ/L (3.5-5.1) Chloride Level 119 MEQ/L (98-107) 116 MEQ/L (98-107) 115 MEQ/L (98-107) Carbon Dioxide Level 36.6 MEQ/L (21.0-32.0) 33.6 MEQ/L (21.0-32.0) 29.3 MEQ/L (21.0-32.0) Anion Gap 3 MEQ/L (5-15) 7 MEQ/L (5-15) 8 MEQ/L (5-15) Estimat Glomerular Filtration Rate 102 ML/MIN (>89) 130 ML/MIN (>89) 73 ML/MIN (>89) Blood Gas Puncture Site RT RADIAL Blood Gas Patient Temperature 98.6 Blood Gas HCO3 34 mmol/L (22-26) Blood Gas Base Excess 9.4 mmol/L (-2-2) Blood Gas Oxygen Saturation 88 % (90-100) Arterial Blood pH 7.46 (7.380-7.420) Arterial Blood Partial Pressure CO2 48 mmHg (38-42) Arterial Blood Partial Pressure O2 60 mmHg (61-120) Arterial Blood Oxygen Content 12.3 Vol % (12.0-20.0) Arterial Blood Carboxyhemoglobin 2.4 % (0-4) Arterial Blood Methemoglobin 0.6 % (0-2) Blood Gas Hemoglobin 9.9 G/DL (12.0-16.0) Oxygen Delivery Device TC Blood Gas Liter Flow 10 L/M Blood Gas Inspired Oxygen 100 % Test 07/15/17 10:30 07/15/17 11:10 07/16/17 07:31 Urine Color YELLOW (YELLW/STRAW) Urine Turbidity CLOUDY (CLEAR) Urine pH 5.5 (5.0-8.5) Urine Specific [place] 1.021 (1.002-1.035) Urine Protein 100 mg/dL (NEG-TRACE) Urine Glucose (UA) NEG mg/dL (NEG) Urine Ketones NEG mg/dL (NEG) Urine Occult Blood MOD (NEG) Urine Nitrite NEG (NEG) Urine Bilirubin NEG (NEG) Urine Urobilinogen LESS THAN 2.0 MG/DL (LESS Urine Leukocyte Esterase LARGE (NEG) Urine RBC 14 /hpf (0-3) Urine WBC /hpf (0-5) Urine WBC Clumps MOD (NONE) Urine Squamous Epithelial Cells 2 /hpf (0-5) Urine Transitional Epithelial Cells 1 /hpf (NONE) Urine Bacteria MANY /hpf (NONE) Microscopic Urinalysis Comment CATH-CULTURE IND Stool C. difficile Toxin (PCR) NEGATIVE (NEGATIVE) Stl C. difficile Toxin Epiderm 027 PRESUMPTIVE NEGATIVE White Blood Count 11.6 TH/MM3 (4.0-11.0) 9.5 TH/MM3 (4.0-11.0) Red Blood Count 3.21 MIL/MM3 (4.00-5.30) 2.98 MIL/MM3 (4.00-5.30) Hemoglobin 10.1 GM/DL (11.6-15.3) 9.6 GM/DL (11.6-15.3) Hematocrit 31.7 % (35.0-46.0) 29.4 % (35.0-46.0) Mean Corpuscular Volume 98.5 FL (80.0-100.0) 98.6 FL (80.0-100.0) Mean Corpuscular Hemoglobin 31.5 PG (27.0-34.0) 32.1 PG (27.0-34.0) Mean Corpuscular Hemoglobin Concent 32.0 % (32.0-36.0) 32.6 % (32.0-36.0) Red Cell Distribution Width 17.1 % (11.6-17.2) 17.6 % (11.6-17.2) Platelet Count 280 TH/MM3 (150-450) 247 TH/MM3 (150-450) Mean Platelet Volume 10.4 FL (7.0-11.0) 10.9 FL (7.0-11.0) Neutrophils (%) (Auto) 69.3 % (16.0-70.0) Lymphocytes (%) (Auto) 21.2 % (9.0-44.0) Monocytes (%) (Auto) 8.3 % (0.0-8.0) Eosinophils (%) (Auto) 0.1 % (0.0-4.0) Basophils (%) (Auto) 1.1 % (0.0-2.0) Neutrophils # (Auto) 8.0 TH/MM3 (1.8-7.7) Lymphocytes # (Auto) 2.5 TH/MM3 (1.0-4.8) Monocytes # (Auto) 1.0 TH/MM3 (0-0.9) Eosinophils # (Auto) 0.0 TH/MM3 (0-0.4) Basophils # (Auto) 0.1 TH/MM3 (0-0.2) CBC Comment AUTO DIFF Differential Total Cells Counted 100 Neutrophils % (Manual) 55 % (16-70) Band Neutrophils % 18 % (0-6) Lymphocytes % 19 % (9-44) Monocytes % 7 % (0-8) Basophils % 1 % (0-2) Neutrophils # (Manual) 8.5 TH/MM3 (1.8-7.7) Differential Comment FINAL DIFF MANUAL Platelet Estimate NORMAL (NORMAL) Platelet Morphology Comment NORMAL (NORMAL) Blood Urea Nitrogen 60 MG/DL (7-18) Creatinine 0.39 MG/DL (0.50-1.00) Random Glucose 67 MG/DL (74-106) Calcium Level 8.7 MG/DL (8.5-10.1) Sodium Level 153 MEQ/L (136-145) Potassium Level 4.0 MEQ/L (3.5-5.1) Chloride Level 114 MEQ/L (98-107) Carbon Dioxide Level 33.6 MEQ/L (21.0-32.0) Anion Gap 5 MEQ/L (5-15) Estimat Glomerular Filtration Rate 161 ML/MIN (>89) Result Diagram: 07/16/17 0731 07/16/17 0731 Microbiology Microbiology Date/Time Source Procedure Growth Status 07/15/17 10:30 Urine Catheterized Urine Urine Culture - Preliminary Gram Negative Juan Resulted Imaging Last 48 hours Impressions Chest X-Ray 07/15/17 0000 Signed Impressions: Service Date/Time: Saturday, July 15, 2017 08:59 - CONCLUSION: Radiographic pattern most consistent with intra-alveolar pulmonary edema. Deangelo Wren Jr., MD Procedures * 05/16/17 -PEG tube placement * 05/15/17 -tracheostomy placement * 05/08/17 -left-sided chest tube/pigtail * 04/30/17 -endotracheal intubation * 04/21/17 -Left hip reduction and intramedullary nail fixation . Assessment and Plan Disease Oriented Problem List: (1) Acute respiratory failure (2) Acute CVA (cerebrovascular accident) (3) Pneumonia (4) Atrial fibrillation with RVR (5) Hypertension (6) Hip fracture Symptom Scale: (1) Shortness of breath 0-10 Scale: Unable to quantify Comment: Currently trached on T piece-FiO2 40% . Copious thick secretions. (2) Debility 0-10 Scale: Unable to quantify Comment: Progressive. (3) Pain 0-10 Scale: Unable to quantify Comment: Secondary to recent surgical intervention Pertinent Non-Medical Issues Psychosocial: Patient is originally from [place]. Residing in [place] up until 2013 she moved to [place] to live with only daughter Trice. Patient is a , in 2006. Spiritual: No islam affiliation. Legal: No advance directives completed. Ethical issues impacting care: Patient unable to participating in medical decision-making secondary to clinical condition. Patient's daughter acting as healthcare proxy decision maker. . Important Contacts Daughter Norma Salvador . . Prognosis Mrs. Hein needs a 76-year-old female with a past medical history of hypertension, diabetes mellitus and prior CVA. Presented with left hip fracture , underwent ORIF. Clinical course complicated by large left MCA infarct with edema. Overall prognosis is poor for a meaningful neurological recovery or long -term survival given acute stroke, chronic ongoing comorbidities and advanced age. Patient appears hospice appropriate should family elect comfort-directed care. . Code Status: Full Code Plan * CODE STATUS: FULL CODE. CODE STATUS readdress 07/03/17. Risks, benefits and limitations of CPR reviewed given patient's clinical condition and poor prognosis. Daughter electing full code. * HEALTHCARE DECISION-MAKING: Patient not capacitated for medical decision- making given severe large stroke, not expected to regain capacity. No advance directives completed, patient is . As per [place] statute, healthcare proxy decision-making falls to patient's only daughter Trice Salvador. * GOALS OF CARE: 07/16/17 -aggressive. Unable to reach daughter by telephone today. * SYMPTOMS: * = Shortness of breath, multifactorial. Secondary to altered mental status/CVA , pneumonia, lethargy. Now trached and on T piece-40%. Patient is having copious thick secretions. Recommending Mucomyst Q 8 hours prn for thinning secretions. * = Pain, secondary to recent surgical intervention. Patient does not appear to be in pain at this time. * = Debility, progressive. Likely to continue to worsen given recent acute stroke and prolonged hospitalization. * Difficult disposition, long-term plans for this patient are impacted by her psychosocial situation, no coverage/no payer source for long-term placement or rehab. * Palliative care contact information has been provided to patient's daughter. * Palliative care will continue to follow-up as needed for further clarifications of goals of care as patient's clinical condition continues to evolve. . Attestation To help prompt me to consider important information that might be impacting today's encounter and assessment, information from prior notes written by myself or my colleagues may have been "brought forward" into today's note. My signature on this note, however, is an attestation that I personally performed the exam, history, and/or decision-making noted today, and, unless otherwise indicated, the interactions with patient, family, and staff as well as the review of records all occurred today. I also attest that the listed assessment and stated plan reflect my best clinical judgment today based on the combination of historical information, prior notes, and today's exam/ interactions. When time spent is documented, it refers only to time spent today by the signer, or if indicated, combined time spent today by collaborating physician/nurse practitioner. Navin Damico Jul 16, 2017 15:08
[2017-07-16] MEDS ORDERED: RESP: ALBUTEROL 2.5 MG/IPRATROPIUM 0.5 MG NEB (SCH) NEB (16:45)
[2017-07-16] MEDS ORDERED: HYOSCYAMINE SOLN 0.125 MG/ML 15 ML BTL PEG SCH (21:00)
[2017-07-16] MEDS: RESP: ALBUTEROL 2.5 MG/3 ML NEB (SCH) INH (21:04)
[2017-07-17] VITALS (10 sets, daily range): BP systolic 130–152; BP diastolic 61–68; PULSE 78–88; RESP 16–28; TEMP 96.4–98.9; O2SAT 84–100
[2017-07-17] MEDS: RESP: ALBUTEROL 2.5 MG/3 ML NEB (SCH) INH ×4 (02:41→20:44)
[2017-07-17] MEDS: ARTIFICIAL TEARS OPTH SOLN 15 ML BTL EACH EYE SCH ×3 (05:36→22:06)
[2017-07-17] MEDS: HEPARIN SODIUM - SQ 10,000 UNITS/ML VIAL SQ SCH ×3 (05:36→22:04)
[2017-07-17] MEDS ORDERED: RESP: ACETYLCYSTEINE 20% 30 ML NEB NEB PRN (08:00)
[2017-07-17] MEDS ORDERED: RESP: ACETYLCYSTEINE 20% 4 ML NEB NEB PRN (08:00)
[2017-07-17] MEDS: POLYETHYLENE GLYCOL 17 GM PKG PEG SCH (09:00)
[2017-07-17] MEDS: SODIUM CHLORIDE 0.9% FLUSH 5 ML FLUSH IV FLUSH SCH ×2 (09:00→21:00)
[2017-07-17] MEDS: DOCUSATE SODIUM 100 MG/10 ML UDC PO SCH ×2 (09:00→22:05)
--- NOTE | 2017-07-17 09:20 | HHI.FPPN ---
Subjective Remarks Resting comfortably in bed, eyes open, does not track or appear to responds to voice. Overnight no acute events. (Klaus Tran MD R2) Objective Vitals Vital Signs Date Time Temp Pulse Resp B/P (MAP) Pulse Ox O2 Delivery O2 Flow Rate FiO2 07/17/17 07:21 98.9 78 28 140/64 (89) 07/17/17 05:27 97.7 80 16 145/66 (92) 95 07/17/17 02:41 89 T-piece 5.00 50 07/17/17 00:31 97.5 80 16 152/68 (96) 84 07/16/17 21:35 84 T-Piece 40 07/16/17 21:04 91 T-piece 5.00 40 07/16/17 21:04 91 T-piece 5.00 40 07/16/17 20:52 98.0 83 18 165/75 (105) 100 07/16/17 16:00 96.1 84 17 158/75 (102) 99 07/16/17 12:00 97.1 89 16 157/85 (109) 98 07/16/17 09:13 96 T-piece 50 I/O 07/16/17 07/16/17 07/16/17 07/17/17 07/17/17 07/17/17 07:00 15:00 23:00 07:00 15:00 23:00 Intake Total 1643 ml 955 ml 848 ml 0 ml Output Total 1600 ml 450 ml 400 ml Balance 43 ml 505 ml 448 ml 0 ml Intake Oral 0 ml 0 ml Tube Feeding 1143 ml 705 ml 348 ml Other 500 ml 250 ml 500 ml Output Urine Total 1600 ml 450 ml 400 ml # Bowel Movements 2 1 (Klaus Tran MD R2) Result Diagram: 07/16/1773007/16/17730 Objective Remarks CONSTITUTIONAL/GEN: Nonverbal, lying in bed with tracheostomy and PEG tubes in place with head turned to left. HEAD: Normocephalic. Atraumatic. Right side facial droop. LUNGS: CTAB. Breathing spontaneously via T-tube. CARDIOVASCULAR: Regular rate and rhythm. GI/ABD: Soft, non-distended. No grimacing with palpation. Glucerna 1.5 tube feed @ 45ml/hr. Abdomen non-distended NEURO: Grimace to sternal rub, eyes open but does not track; no meaningful response to voice or commands, though speaks Pashto only. Flaccid paralysis on the right side. Moves left UE and LE spontaneously and intermittently. MUSC: SCDs on bilateral lower extremities. Pedal pulses present. SKIN: Sacral pressure ulcer extends from anus to coccyx. Procedures ORIF 04/21/17 Intubation 04/30/17 Medications and IVs Current Medications Medications (Trade) Dose Ordered Sig/Zeferino Route Start Time Stop Time Status Last Admin (Zofran Inj) 4 mg Q6H PRN IV PUSH 04/20/17 15:00 04/30/17 02:28 (Narcan Inj) 0.4 mg UNSCH PRN IV 04/20/17 17:15 (Milk Of Magnesia Liq) 30 ml Q12H PRN PO 04/20/17 20:30 (Dulcolax Supp) 10 mg DAILY PRN RECTAL 04/20/17 20:30 (Oscal-D 250-125) 250 mg TID PO 04/21/17 13:00 07/16/17 18:27 (Vitamin D3) 5,000 units DAILY PO 04/22/17 09:00 07/16/17 10:03 (NS Flush) 2 ml BID IV FLUSH 04/24/17 21:00 07/16/17 21:35 (NS Flush) 2 ml UNSCH PRN IV FLUSH 04/24/17 09:30 (Aspirin) 325 mg DAILY DOBHOFF 04/27/17 09:00 07/16/17 10:03 (Colace Liq) 100 mg Q12HR PO 05/07/17 21:00 07/14/17 22:15 (Prevacid Odt) 30 mg DAILY NG 05/08/17 09:00 07/16/17 10:03 (Beneprotein Powder) 1 pack TID G-TUBE 05/12/17 13:00 07/16/17 18:28 (Glucagon Inj) 1 mg UNSCH PRN OTHER 05/21/17 13:15 (D50w (Syr) Inj) 50 ml UNSCH PRN IV PUSH 05/22/17 17:15 07/09/17 17:14 (Tears Naturale Opth Soln) 1 drop Q8HR EACH EYE 06/12/17 07:15 07/17/17 05:36 (Prinivil) 20 mg Q12HR PO 06/21/17 09:00 07/16/17 21:35 (Nitroglycerin 2% Oint) 2 inch Q6H PRN TOPICAL 06/21/17 08:00 06/30/17 14:37 (Levemir Inj) 10 units Q12H SQ 06/21/17 09:00 07/16/17 22:00 (Miralax) 17 gm DAILY PEG 07/09/17 09:00 07/14/17 08:14 (Catapres) 0.1 mg Q6H PRN PO 07/12/17 00:30 (Heparin Inj) 5,000 units Q8HR SQ 07/15/17 08:00 07/17/17 05:36 (Albuterol Neb) 2.5 mg Q6HR NEB INH 07/16/17 22:00 07/17/17 02:41 (Mucomyst 20% Neb) 2 ml Q8HR NEB PRN NEB 07/17/17 08:00 (Klaus Tran MD R2) A/P Assessment and Plan 76 y/o female with HTN, DM admitted for DKA and hip fracture s/p stroke on POD# 3 after ORIF (Klaus Tran MD R2) Attending Attestation Patient seen and examined. Case reviewed and discussed with the resident team. Agree with plan of care as discussed with me and documented in the resident note. (Mei Harper MD) Problem List: (1) Hypernatremia ICD Codes: E87.0 - Hyperosmolality and hypernatremia Status: Acute Plan: Now resolving, likely due to poor hydration status Item Value Date Time Sodium Level 159 MEQ/L *H 07/14/17 0747 Sodium Level 157 MEQ/L *H 07/14/17 2152 Sodium Level 152 MEQ/L H 07/15/17 0808 Sodium Level 153 MEQ/L H 07/16/17 0731 Sodium Level 149 MEQ/L H 07/17/17 0625 - Continue 200 mL water via PEG tube Q4H - Previously on NS at 42 cc/hr, discontinued after 1 L total - Check sodium daily until stable (2) Acute CVA (cerebrovascular accident) ICD Codes: I63.9 - Cerebral infarction, unspecified Status: Chronic Plan: Neurologically stable, no improvement. Overall prognosis is poor. Had new oxygen requirement on 07/15. CXR showed mild pulmonary edema. UA with moderate leukocyte esterase, culture pending. Leavitt changed. Oxygen requirement now decreased but occasionally will need higher FIO2 to maintain saturations above 92%. -DC IV fluids (see above) -Titrate oxygen via trach to maintain O2 saturation above 92% -Neurosurgery consulted, now signed off -Recommended conservative management -No improvement in neurological status. As per nurse patient moves left hand spontaneously not on command, open eyes but does not tract or follow commands. -Software Firmware Engineer consulted and appreciated -Tube feeds: Glucerna 1.5 tube feed @ 45ml/hr 24 hours a day for diet via PEG tube -Physical therapy consulted and appreciated -Consulted palliative care-appreciate recs. appreciate help in talking to her daughter -As per last palliative note on 07/16 daughter continues to want aggressive care. Wishes to continue aggressive medical treatment despite prognosis -Palliative and primary team contacting daughter regularly to give updates, both Palliative and primary left phone numbers for daughter to return call -Ongoing discussion with daughter regarding poor prognosis, realistic goals of care -Recommended Mucomyst Q8H PRN for thick respiratory secretions -Neurology consulted, now signed off. Appreciate recs: Poor prognosis -Rectal ASA -Prophylactic anticoagulation (SQ heparin TID) History and imaging: Patient found minimally responsive with neurological deficits around 0820 04/24. Stat CT of head was ordered, which showed large left MCA infarct. Diffuse edema throughout the left MCA distribution, suggested completed infarct. This was discussed and was not a candidate for intracranial intervention. CT (04/30): Reduction in midline shift to 11mm. Unchanged large left MCA infarction. CT head (05/06) shows: Evolving large left-sided MCA territory infarct with minimally improved [id number] subfalcine shift. No intercurrent hemorrhage or other acute abnormality. Echocardiogram- The left ventricular systolic function is low normal with an estimated ejection fraction in the range of 50-55%. Mild concentric left ventricular hypertrophy. Normal left ventricular size. [id number] mitral valve regurgitation. Carotid Artery US- No hemodynamically significant carotid stenosis (3) Sacral decubitus ulcer ICD Codes: L89.159 - Pressure ulcer of sacral region, unspecified stage Status: Chronic Plan: Patient with Stage IV pressure injury over the coccyx. -Wound care consult appreciated: 1. Please cleanse coccyx wound every 3 days and PRN for soiling. 2. Apply Calcium Alginate to open wound bed. 3. Secure with bordered gauze every 3 days and PRN for soiling. 4. Continue to turn patient every 2 hours or PRN for comfort. 5. Use one ultrasorb for moisture. Please use flat sheet for repositioning. (4) Anemia ICD Codes: D64.9 - Anemia, unspecified Status: Chronic Plan: s/p 1u of PRBC on 05/28/17. Hgb stable. Most recent H/H 10.09/30. Hemoccult negative on 05/29. - monitor H&H (5) Urinary retention ICD Codes: R33.9 - Retention of urine, unspecified Status: Chronic Plan: -Leavitt cath done because patient was retaining urine with intermittent cath's - Cath last changed 07/15, pt afebrile -Urine output WNL (6) Type 2 diabetes mellitus ICD Codes: E11.9 - Type 2 diabetes mellitus without complications Status: Chronic Plan: Several blood sugar readings < 80 over last 48 hours -Continue Levemir 10units Q12h, BS goal 140-180 -Discontinued SSI on 07/16 -AccuCheks QShift -Glucerna for PEG tube feedings @ 45 ml/hr -Glucagon 1 mg per PRN protocol for hypoglycemia BS <70mg/dL History Admitted for DKA which has now resolved. Hemoglobin A1C is 12.9. Diabetes Type I is uncontrolled. (7) Hip fracture ICD Codes: S72.009A - Fracture of unspecified part of neck of unspecified femur , initial encounter for closed fracture Status: Resolved Plan: S/P left hip reduction and intramedullary nail fixation on 04-21-17 -c/w Calcium/Vitamin D (8) Blood alkaline phosphatase increased compared with prior measurement ICD Codes: R74.8 - Abnormal levels of other serum enzymes Plan: -currently downtrending -Most recent Alk P: 650 -continue to monitor periodically (9) Hypertension ICD Codes: I10 - Essential (primary) hypertension Status: Chronic Plan: -Antihypertensives to keep SBP<160, as per critical care recs -c/w clonidine 0.1mg Q6h PRN SBP >160 -c/w lisinopril 20mg Q12h po Echocardiogram 04/24 - EF 50 to 55%. Mild concentric LVH. (10) Fluids, Electrolytes, and Nutrition Status: Acute Plan: Fluids: through PEG tube Electrolyte: on electrolyte protocol Nutrition: continuous Glucerna tube feeds and free water, pump at 45mls/hr, tolerating feeds well, no residual. Protein 1 pack TID. Supplements: calcium TID and vit D3 QD DVT ppx: SCDs/heparin CVA ppx: aspirin 325 mg QD GI ppx: Lansoprazole 30mg qd via NG Colace, dulcolax PRN (Klaus Tran MD R2) Problem Qualifiers (1) Sacral decubitus ulcer: Qualified Codes: L89.154 - Pressure ulcer of sacral region, stage 4 (2) Type 2 diabetes mellitus: Qualified Codes: E11.9 - Type 2 diabetes mellitus without complications (3) Hip fracture: (4) Hypertension: Qualified Codes: I10 - Essential (primary) hypertension Klaus Tran MD R2 Jul 17, 2017 09:20 Mei Harper MD Jul 17, 2017 15:57
[2017-07-17] MEDS: INSULIN DETEMIR 100 UNITS/ML VIAL SQ SCH ×2 (09:28→22:04)
[2017-07-17] MEDS: CALCIUM/VITAMIN D 250 MG/125 U TAB PO SCH ×3 (09:28→18:26)
[2017-07-17] MEDS: CHOLECALCIFEROL (VIT D3) 5000 UNIT CAP PO SCH (09:28)
[2017-07-17] MEDS: LISINOPRIL 10 MG TAB PO SCH ×2 (09:29→22:06)
[2017-07-17] MEDS: LANSOPRAZOLE SOLUTAB 30 MG TAB NG SCH (09:29)
[2017-07-17] MEDS: ASPIRIN 325 MG TAB DOBHOFF SCH (09:29)
[2017-07-17] MEDS: BENEPROTEIN POWDER 1 PACK G-TUBE SCH ×3 (09:30→18:25)
[2017-07-17] MEDS ORDERED: SULFAMETHOXAZOLE-TRIMETHOPRIM 800-160 MG/20 ML UDC PO SCH (09:45)
[2017-07-17] MEDS: SULFAMETHOXAZOLE-TRIMETHOPRIM 800-160 MG/20 ML UDC PEG SCH ×2 (13:29→22:05)
[2017-07-18] VITALS (8 sets, daily range): BP systolic 125–165; BP diastolic 58–86; PULSE 83–97; RESP 15–28; TEMP 96.4–99.2; O2SAT 91–97
[2017-07-18] MEDS: RESP: ALBUTEROL 2.5 MG/3 ML NEB (SCH) INH ×4 (04:12→20:10)
[2017-07-18] MEDS: ARTIFICIAL TEARS OPTH SOLN 15 ML BTL EACH EYE SCH ×3 (04:37→21:13)
[2017-07-18] MEDS: HEPARIN SODIUM - SQ 10,000 UNITS/ML VIAL SQ SCH ×3 (04:37→21:13)
[2017-07-18] MEDS: POLYETHYLENE GLYCOL 17 GM PKG PEG SCH (09:00)
--- NOTE | 2017-07-18 11:27 | HHI.FPPN ---
Subjective Remarks Patient seen and examined today. More alert today. Patient opening eyes but does not track and not on command. (Chito Damon MD, R1) Objective Vitals Vital Signs Date Time Temp Pulse Resp B/P (MAP) Pulse Ox O2 Delivery O2 Flow Rate FiO2 07/18/17 09:11 96 T-piece 50 07/18/17 08:00 96.4 93 26 165/86 (112) 97 07/18/17 04:00 98.6 94 16 128/60 (82) 94 07/18/17 03:14 100 T-Piece 7.00 40 07/18/17 00:00 97.2 83 16 125/58 (80) 92 07/17/17 23:00 98 T-piece 35 07/17/17 23:00 98 T-piece 35 07/17/17 20:50 98 T-piece 35 07/17/17 20:00 96.4 88 16 130/61 (84) 100 07/17/17 16:00 97.8 86 20 136/63 (87) 97 07/17/17 11:45 97.6 86 26 146/65 (92) 94 I/O 07/17/17 07/17/17 07/17/17 07/18/17 07/18/17 07/18/17 07:00 15:00 23:00 07:00 15:00 23:00 Intake Total 848 ml 0 ml 1267 ml 1049 ml Output Total 400 ml 500 ml 550 ml Balance 448 ml 0 ml 767 ml 499 ml Intake Oral 0 ml 0 ml Tube Feeding 348 ml 517 ml 449 ml Tube Irrigant 600 ml Other 500 ml 750 ml Output Urine Total 400 ml 500 ml 550 ml # Bowel Movements 1 (Chito Damon MD, R1) Result Diagram: 07/16/17 0731 07/17/17 0625 Objective Remarks CONSTITUTIONAL/GEN: Nonverbal, lying in bed with tracheostomy and PEG tubes in place with head turned to left. Opens and closes eyes but not on command. HEAD: Normocephalic. Atraumatic. Right side facial droop. LUNGS: CTAB. Breathing spontaneously via T-tube. CARDIOVASCULAR: Regular rate and rhythm. GI/ABD: Soft, non-distended. No grimacing with palpation. Glucerna 1.5 tube feed @ 45ml/hr. Abdomen non-distended NEURO: Grimace to sternal rub, eyes open but does not track; no meaningful response to voice or commands, though speaks [place] only. Flaccid paralysis on the right side. Moves left UE and LE spontaneously and intermittently. MUSC: SCDs on bilateral lower extremities. Pedal pulses present. SKIN: Sacral pressure ulcer extends from anus to coccyx. Procedures ORIF 04/21/17 Intubation 04/30/17 (Chito Damon MD, R1) A/P Assessment and Plan 76 y/o female with HTN, DM admitted for DKA and hip fracture s/p stroke on POD# 3 after ORIF (Chito Damon MD, R1) Attending Attestation Patient seen and examined. Case reviewed and discussed with the resident team. Agree with plan of care as discussed with me and documented in the resident note. (Mei Harper MD) Problem List: (1) Hypernatremia ICD Codes: E87.0 - Hyperosmolality and hypernatremia Status: Resolved Plan: Now resolving, likely due to poor hydration status Item Value Date Time Sodium Level 159 MEQ/L *H 07/14/17 0747 Sodium Level 157 MEQ/L *H 07/14/17 2152 Sodium Level 152 MEQ/L H 07/15/17 0808 Sodium Level 153 MEQ/L H 07/16/17 0731 Sodium Level 149 MEQ/L H 07/17/17 0625 - Continue 200 mL water via PEG tube Q4H - Previously on NS at 42 cc/hr, discontinued after 1 L total - Check sodium daily until stable (2) Acute CVA (cerebrovascular accident) ICD Codes: I63.9 - Cerebral infarction, unspecified Status: Chronic Plan: Neurologically stable, no improvement. Overall prognosis is poor. Had new oxygen requirement on 07/15. CXR showed mild pulmonary edema. UA with moderate leukocyte esterase, culture pending. Leavitt changed. Oxygen requirement now decreased but occasionally will need higher FIO2 to maintain saturations above 92%. -DC IV fluids (see above) -Titrate oxygen via trach to maintain O2 saturation above 92% -Neurosurgery consulted, now signed off -Recommended conservative management -No improvement in neurological status. As per nurse patient moves left hand spontaneously not on command, open eyes but does not tract or follow commands. -Gate Clerk consulted and appreciated -Tube feeds: Glucerna 1.5 tube feed @ 45ml/hr 24 hours a day for diet via PEG tube -Physical therapy consulted and appreciated -Consulted palliative care-appreciate recs. appreciate help in talking to her daughter -As per last palliative note on 07/16 daughter continues to want aggressive care. Wishes to continue aggressive medical treatment despite prognosis -Palliative and primary team contacting daughter regularly to give updates, both Palliative and primary left phone numbers for daughter to return call -Ongoing discussion with daughter regarding poor prognosis, realistic goals of care -Recommended Mucomyst Q8H PRN for thick respiratory secretions -Neurology consulted, now signed off. Appreciate recs: Poor prognosis -Rectal ASA -Prophylactic anticoagulation (SQ heparin TID) History and imaging: Patient found minimally responsive with neurological deficits around 0820 04/24. Stat CT of head was ordered, which showed large left MCA infarct. Diffuse edema throughout the left MCA distribution, suggested completed infarct. This was discussed and was not a candidate for intracranial intervention. CT (04/30): Reduction in midline shift to 11mm. Unchanged large left MCA infarction. CT head (05/06) shows: Evolving large left-sided MCA territory infarct with minimally improved [id number] subfalcine shift. No intercurrent hemorrhage or other acute abnormality. Echocardiogram- The left ventricular systolic function is low normal with an estimated ejection fraction in the range of 50-55%. Mild concentric left ventricular hypertrophy. Normal left ventricular size. Wigqg-ar-mqdr mitral valve regurgitation. Carotid Artery US- No hemodynamically significant carotid stenosis (3) Sacral decubitus ulcer ICD Codes: L89.159 - Pressure ulcer of sacral region, unspecified stage Status: Chronic Plan: Patient with Stage IV pressure injury over the coccyx. -Wound care consult appreciated: 1. Please cleanse coccyx wound every 3 days and PRN for soiling. 2. Apply Calcium Alginate to open wound bed. 3. Secure with bordered gauze every 3 days and PRN for soiling. 4. Continue to turn patient every 2 hours or PRN for comfort. 5. Use one ultrasorb for moisture. Please use flat sheet for repositioning. (4) Anemia ICD Codes: D64.9 - Anemia, unspecified Status: Chronic Plan: s/p 1u of PRBC on 05/28/17. Hgb stable. Most recent H/H 10.09/30. Hemoccult negative on 05/29. - monitor H&H (5) Urinary retention ICD Codes: R33.9 - Retention of urine, unspecified Status: Chronic Plan: -Leavitt cath done because patient was retaining urine with intermittent cath's - Cath last changed 07/15, pt afebrile -Urine output WNL (6) Type 2 diabetes mellitus ICD Codes: E11.9 - Type 2 diabetes mellitus without complications Status: Chronic Plan: Several blood sugar readings < 80 over last 48 hours -Continue Levemir 10units Q12h, BS goal 140-180 -Discontinued SSI on 07/16 -AccuCheks QShift -Glucerna for PEG tube feedings @ 45 ml/hr -Glucagon 1 mg per PRN protocol for hypoglycemia BS <70mg/dL History Admitted for DKA which has now resolved. Hemoglobin A1C is 12.9. Diabetes Type I is uncontrolled. (7) Hip fracture ICD Codes: S72.009A - Fracture of unspecified part of neck of unspecified femur , initial encounter for closed fracture Status: Resolved Plan: S/P left hip reduction and intramedullary nail fixation on 04-21-17 -c/w Calcium/Vitamin D (8) Blood alkaline phosphatase increased compared with prior measurement ICD Codes: R74.8 - Abnormal levels of other serum enzymes Plan: -currently downtrending -Most recent Alk P: 650 -continue to monitor periodically (9) Hypertension ICD Codes: I10 - Essential (primary) hypertension Status: Chronic Plan: -Antihypertensives to keep SBP<160, as per critical care recs -c/w clonidine 0.1mg Q6h PRN SBP >160 -c/w lisinopril 20mg Q12h po Echocardiogram 04/24 - EF 50 to 55%. Mild concentric LVH. (10) Fluids, Electrolytes, and Nutrition Status: Acute Plan: Fluids: through PEG tube Electrolyte: on electrolyte protocol Nutrition: continuous Glucerna tube feeds and free water, pump at 45mls/hr, tolerating feeds well, no residual. Protein 1 pack TID. Supplements: calcium TID and vit D3 QD DVT ppx: SCDs/heparin CVA ppx: aspirin 325 mg QD GI ppx: Lansoprazole 30mg qd via NG Colace, dulcolax PRN (Chito Damon MD, R1) Problem Qualifiers (1) Sacral decubitus ulcer: Qualified Codes: L89.154 - Pressure ulcer of sacral region, stage 4 (2) Type 2 diabetes mellitus: Qualified Codes: E11.9 - Type 2 diabetes mellitus without complications (3) Hip fracture: (4) Hypertension: Qualified Codes: I10 - Essential (primary) hypertension Chito Damon MD, R1 Jul 18, 2017 11:27 Mei Harper MD Jul 20, 2017 07:25
[2017-07-18] MEDS: CHOLECALCIFEROL (VIT D3) 5000 UNIT CAP PO SCH (13:13)
[2017-07-18] MEDS: DOCUSATE SODIUM 100 MG/10 ML UDC PO SCH ×2 (13:13→21:13)
[2017-07-18] MEDS: LANSOPRAZOLE SOLUTAB 30 MG TAB NG SCH (13:13)
[2017-07-18] MEDS: ASPIRIN 325 MG TAB DOBHOFF SCH (13:13)
[2017-07-18] MEDS: LISINOPRIL 10 MG TAB PO SCH ×2 (13:13→21:14)
[2017-07-18] MEDS: CALCIUM/VITAMIN D 250 MG/125 U TAB PO SCH ×5 (13:13→18:18)
[2017-07-18] MEDS: SODIUM CHLORIDE 0.9% FLUSH 5 ML FLUSH IV FLUSH SCH ×2 (13:14→21:00)
[2017-07-18] MEDS: SULFAMETHOXAZOLE-TRIMETHOPRIM 800-160 MG/20 ML UDC PEG SCH ×2 (13:14→21:14)
[2017-07-18] MEDS: BENEPROTEIN POWDER 1 PACK G-TUBE SCH ×5 (13:14→18:18)
[2017-07-18] MEDS: INSULIN DETEMIR 100 UNITS/ML VIAL SQ SCH ×2 (13:15→22:10)
[2017-07-19] VITALS (8 sets, daily range): BP systolic 136–167; BP diastolic 63–72; PULSE 84–98; RESP 16–22; TEMP 96.2–99.2; O2SAT 89–97
[2017-07-19] MEDS: RESP: ALBUTEROL 2.5 MG/3 ML NEB (SCH) INH ×4 (03:43→22:11)
[2017-07-19] MEDS: ARTIFICIAL TEARS OPTH SOLN 15 ML BTL EACH EYE SCH ×3 (04:50→21:28)
[2017-07-19] MEDS: HEPARIN SODIUM - SQ 10,000 UNITS/ML VIAL SQ SCH ×3 (04:51→21:28)
[2017-07-19] MEDS: CALCIUM/VITAMIN D 250 MG/125 U TAB PO SCH ×3 (08:37→18:22)
[2017-07-19] MEDS: ASPIRIN 325 MG TAB DOBHOFF SCH (08:37)
[2017-07-19] MEDS: LANSOPRAZOLE SOLUTAB 30 MG TAB NG SCH (08:37)
[2017-07-19] MEDS: CHOLECALCIFEROL (VIT D3) 5000 UNIT CAP PO SCH (08:38)
[2017-07-19] MEDS: DOCUSATE SODIUM 100 MG/10 ML UDC PO SCH ×2 (08:38→21:27)
[2017-07-19] MEDS: LISINOPRIL 10 MG TAB PO SCH ×2 (08:38→21:27)
[2017-07-19] MEDS: SULFAMETHOXAZOLE-TRIMETHOPRIM 800-160 MG/20 ML UDC PEG SCH ×2 (08:38→21:27)
[2017-07-19] MEDS: POLYETHYLENE GLYCOL 17 GM PKG PEG SCH (08:38)
[2017-07-19] MEDS: INSULIN DETEMIR 100 UNITS/ML VIAL SQ SCH ×2 (08:39→23:35)
[2017-07-19] MEDS: SODIUM CHLORIDE 0.9% FLUSH 5 ML FLUSH IV FLUSH SCH ×2 (08:40→21:28)
[2017-07-19] MEDS: BENEPROTEIN POWDER 1 PACK G-TUBE SCH ×3 (08:41→16:56)
--- NOTE | 2017-07-19 09:29 | HHI.FPPN ---
Subjective Remarks No acute events overnight. VSS. This morning she awakens more easily and makes better eye contact. Responds to commands, unable to move R side of body. (Klaus Tran MD R2) Objective Vitals Vital Signs Date Time Temp Pulse Resp B/P (MAP) Pulse Ox O2 Delivery O2 Flow Rate FiO2 07/19/17 08:00 98.8 94 20 167/72 (103) 95 07/19/17 04:00 96.3 93 18 149/69 (95) 92 07/19/17 00:00 97.0 95 16 150/66 (94) 97 07/18/17 21:00 97 T-Piece 7.00 50 07/18/17 20:16 92 T-piece 6.00 50 07/18/17 20:00 99.2 97 15 161/72 (101) 97 07/18/17 16:00 97.1 89 19 158/72 (100) 94 07/18/17 12:00 98.5 97 28 144/70 (94) 91 I/O 07/18/17 07/18/17 07/18/17 07/19/17 07/19/17 07/19/17 07:00 15:00 23:00 07:00 15:00 23:00 Intake Total 1049 ml 760 ml 543 ml 1269 ml Output Total 550 ml 1375 ml 225 ml Balance 499 ml 760 ml -832 ml 1044 ml Intake Oral 0 ml 240 ml Tube Feeding 449 ml 360 ml 543 ml 429 ml Tube Irrigant 600 ml 600 ml Other 400 ml Output Urine Total 550 ml 1375 ml 225 ml # Bowel Movements 1 4 1 (Klaus Tran MD R2) Result Diagram: 07/16/17 0731 07/18/17 1118 Imaging Last Impressions Chest X-Ray 07/15/17 0000 Signed Impressions: Service Date/Time: Saturday, July 15, 2017 08:59 - CONCLUSION: Radiographic pattern most consistent with intra-alveolar pulmonary edema. Deangelo Wren Jr., MD Hip and Pelvis X-Ray 07/09/17 0000 Signed Impressions: Service Date/Time: Sunday, July 09, 2017 14:04 - CONCLUSION: Anatomic alignment. Ricardo Middleton MD FACR Liver Ultrasound 06/19/17 0000 Signed Impressions: Service Date/Time: June 13:20 - CONCLUSION: 1. Mildly increased echotexture of the liver characteristic of hepatic steatosis. 2. Gallbladder sludge. Obdulio Sam MD Abdomen X-Ray 06/16/17 0000 Signed Impressions: Service Date/Time: Friday, June 16, 2017 04:48 - CONCLUSION: 1. Continued small bowel ileus. There has been no significant change when compared to the prior exam. Toy Duran MD Head CT 05/15/17 0000 Signed Impressions: Service Date/Time: May 19:59 - CONCLUSION: 1. 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 2. No bleed or new/acute infarct. Obdulio Simms MD Gall Bladder Ultrasound 05/08/17 0000 Signed Impressions: Service Date/Time: May 08:23 - CONCLUSION: Focally unremarkable appearance of the gallbladder Obdulio Chun MD Abdomen/Pelvis CT 05/07/17 0000 Signed Impressions: Service Date/Time: Sunday, May 07, 2017 13:23 - CONCLUSION: 1. Large left pneumothorax. 2. Bilateral lower lobe consolidation and bilateral moderate size pleural effusions. 3. Significant soft tissue thickening of the right lateral chest wall and left gluteus muscle. 4. Mild ascites. The findings were called to Dr. Carney. Deangelo Zamora MD Chest CT 04/30/17 0000 Signed Impressions: Service Date/Time: Sunday, April 30, 2017 09:20 - CONCLUSION: 1. Bilateral pulmonary infiltrates more pronounced within the lower lobes with tiny bilateral pleural effusions. Material seen filling the lower lobe bronchi bilaterally either related to purulent material or perhaps mucus plugging. Deangelo Wren Jr., MD Carotid Artery Ultrasound 04/24/17 0000 Signed Impressions: Service Date/Time: April 09:45 - CONCLUSION: 1. No hemodynamically significant carotid artery stenosis. Arnie Middleton MD Hip X-Ray 04/21/17 0000 Signed Impressions: Service Date/Time: Friday, April 21, 2017 11:36 - CONCLUSION: Fluoroscopic images during placement of intramedullary siomara left femur. Benja Ramsey MD Objective Remarks CONSTITUTIONAL/GEN: Lying in bed with tracheostomy and PEG tubes in place with head turned to left HEAD: Normocephalic. Atraumatic. Right side facial droop. LUNGS: CTAB. Breathing spontaneously via T-tube. CARDIOVASCULAR: Regular rate and rhythm. GI/ABD: Soft, non-distended. No grimacing with palpation. Glucerna 1.5 tube feed @ 45ml/hr. Abdomen non-distended NEURO: Grimace to sternal rub, eyes open, occasionally tracks; intermittently responds to commands (however speaks [place] only). Flaccid paralysis on the right side. Moves LUE and LLE on request. MUSC: SCDs on bilateral lower extremities. Pedal pulses present. SKIN: Sacral pressure ulcer extends from anus to coccyx. Procedures ORIF 04/21/17 Intubation 04/30/17 (Klaus Tran MD R2) A/P Assessment and Plan 76 y/o female with HTN, DM admitted for DKA and hip fracture s/p stroke on POD# 3 after ORIF (Klaus Tran MD R2) Attending Attestation Case reviewed and discussed with the resident team. Agree with plan of care as discussed with me and documented in the resident note. (Mei Harper MD) Problem List: (1) Hypernatremia ICD Codes: E87.0 - Hyperosmolality and hypernatremia Status: Resolved Plan: Now resolving, likely due to poor hydration status Item Value Date Time Sodium Level 157 MEQ/L *H 07/14/17 2152 Sodium Level 152 MEQ/L H 07/15/17 0808 Sodium Level 153 MEQ/L H 07/16/17 0731 Sodium Level 149 MEQ/L H 07/17/17 0625 Sodium Level 146 MEQ/L H 07/18/17 1118 - Continue 200 mL water via PEG tube Q4H - Previously on NS at 42 cc/hr, discontinued after 1 L total (2) UTI (urinary tract infection) ICD Codes: N39.0 - Urinary tract infection, site not specified Status: Resolved Plan: Recent UCx growing E coli - Treat with Bactrim x3 days - Repeat UCx at end of course History: - UTI (05/26) Ucx: Citrobacter freundii - ABx: s/p Cefepime x 7 days (3) Acute CVA (cerebrovascular accident) ICD Codes: I63.9 - Cerebral infarction, unspecified Status: Chronic Plan: Neurologically stable, no improvement. Overall prognosis is poor. Persistent oxygen requirement Spoke to daughter on 07/19 and reiterated poor prognosis for any kind of meaningful functional recovery despite improvement in mental status. - Daughter at this time still not wanting hospice, explains that her mother "is a fighter" and had a prolonged hospital stay from her first stroke as well - Daughter states she and her mother never had any conversations regarding her mother's wishes for end of life care - Per daughter, Ms. Hein is Medicaid approved and social security eligible. Paperwork provided to CM, consult re-placed Dispo: To SNF if able to arrange based on insurance -Titrate oxygen via trach to maintain O2 saturation above 92% -Neurosurgery consulted, now signed off -Recommended conservative management -No improvement in neurological status. As per nurse patient moves left hand spontaneously not on command, open eyes but does not tract or follow commands. -Small Machine Bindery Operator consulted and appreciated -Tube feeds: Glucerna 1.5 tube feed @ 45ml/hr 24 hours a day for diet via PEG tube -Physical therapy consulted and appreciated -Consulted palliative care-appreciate recs. appreciate help in talking to her daughter -As per last palliative note on 07/16 daughter continues to want aggressive care. Wishes to continue aggressive medical treatment despite prognosis -Palliative and primary team contacting daughter regularly to give updates, both Palliative and primary left phone numbers for daughter to return call -Ongoing discussion with daughter regarding poor prognosis, realistic goals of care -Recommended Mucomyst Q8H PRN for thick respiratory secretions -Neurology consulted, now signed off. Appreciate recs: Poor prognosis -Rectal ASA -Prophylactic anticoagulation (SQ heparin TID) History and imaging: Patient found minimally responsive with neurological deficits around 0820 04/24. Stat CT of head was ordered, which showed large left MCA infarct. Diffuse edema throughout the left MCA distribution, suggested completed infarct. This was discussed and was not a candidate for intracranial intervention. CT (04/30): Reduction in midline shift to 11mm. Unchanged large left MCA infarction. CT head (05/06) shows: Evolving large left-sided MCA territory infarct with minimally improved ujnv-il-[id number] subfalcine shift. No intercurrent hemorrhage or other acute abnormality. Echocardiogram- The left ventricular systolic function is low normal with an estimated ejection fraction in the range of 50-55%. Mild concentric left ventricular hypertrophy. Normal left ventricular size. Ztwoh-go-zgua mitral valve regurgitation. Carotid Artery US- No hemodynamically significant carotid stenosis (4) Sacral decubitus ulcer ICD Codes: L89.159 - Pressure ulcer of sacral region, unspecified stage Status: Chronic Plan: Patient with Stage IV pressure injury over the coccyx. -Wound care consult appreciated: 1. Please cleanse coccyx wound every 3 days and PRN for soiling. 2. Apply Calcium Alginate to open wound bed. 3. Secure with bordered gauze every 3 days and PRN for soiling. 4. Continue to turn patient every 2 hours or PRN for comfort. 5. Use one ultrasorb for moisture. Please use flat sheet for repositioning. (5) Anemia ICD Codes: D64.9 - Anemia, unspecified Status: Chronic Plan: s/p 1u of PRBC on 05/28/17. Hgb stable around 10. Hemoccult negative on 05/29 - monitor H&H periodically (6) Urinary retention ICD Codes: R33.9 - Retention of urine, unspecified Status: Chronic Plan: -Leavitt cath done because patient was retaining urine with intermittent cath's - Cath last changed 07/15, pt afebrile -Urine output WNL (7) Type 2 diabetes mellitus ICD Codes: E11.9 - Type 2 diabetes mellitus without complications Status: Chronic Plan: BSG 280-340 last 48 hours -Increase Levemir 15 units Q12h, BS goal 140-180 -Discontinued SSI on 07/16 -AccuCheks QShift -Glucerna for PEG tube feedings @ 45 ml/hr -Glucagon 1 mg per PRN protocol for hypoglycemia BS <70mg/dL History Admitted for DKA which has now resolved. Hemoglobin A1C is 12.9. Diabetes Type II is uncontrolled. (8) Hip fracture ICD Codes: S72.009A - Fracture of unspecified part of neck of unspecified femur , initial encounter for closed fracture Status: Resolved Plan: S/P left hip reduction and intramedullary nail fixation on 04-21-17 -c/w Calcium/Vitamin D (9) Blood alkaline phosphatase increased compared with prior measurement ICD Codes: R74.8 - Abnormal levels of other serum enzymes Plan: -currently downtrending -Most recent Alk P: 650 -continue to monitor periodically (10) Hypertension ICD Codes: I10 - Essential (primary) hypertension Status: Chronic Plan: -Antihypertensives to keep SBP<160, as per critical care recs -c/w clonidine 0.1mg Q6h PRN SBP >160 -c/w lisinopril 20mg Q12h po Echocardiogram 04/24 - EF 50 to 55%. Mild concentric LVH. (11) Fluids, Electrolytes, and Nutrition Status: Acute Plan: Fluids: through PEG tube Electrolyte: on electrolyte protocol Nutrition: continuous Glucerna tube feeds and free water, pump at 45mls/hr, tolerating feeds well, no residual. Protein 1 pack TID. Supplements: calcium TID and vit D3 QD DVT ppx: SCDs/heparin CVA ppx: aspirin 325 mg QD GI ppx: Lansoprazole 30mg qd via NG Colace, dulcolax PRN (Klaus Tran MD R2) Problem Qualifiers (1) UTI (urinary tract infection): Qualified Codes: N39.0 - Urinary tract infection, site not specified (2) Sacral decubitus ulcer: Qualified Codes: L89.154 - Pressure ulcer of sacral region, stage 4 (3) Type 2 diabetes mellitus: Qualified Codes: E11.9 - Type 2 diabetes mellitus without complications (4) Hip fracture: (5) Hypertension: Qualified Codes: I10 - Essential (primary) hypertension Klaus Tran MD R2 Jul 19, 2017 09:28 Mei Harper MD Jul 20, 2017 07:25
[2017-07-20] VITALS (7 sets, daily range): BP systolic 110–133; BP diastolic 59–74; PULSE 76–86; RESP 18–21; TEMP 95.8–97.6; O2SAT 94–100
[2017-07-20] MEDS: RESP: ALBUTEROL 2.5 MG/3 ML NEB (SCH) INH ×4 (04:00→19:49)
[2017-07-20] MEDS: HEPARIN SODIUM - SQ 10,000 UNITS/ML VIAL SQ SCH ×3 (05:00→22:22)
[2017-07-20] MEDS: ARTIFICIAL TEARS OPTH SOLN 15 ML BTL EACH EYE SCH ×3 (05:00→22:23)
--- NOTE | 2017-07-20 07:32 | HHI.FPPN ---
Subjective Remarks Patient is unchanged. She is able to open her eyes but she is not responsive. there were no overnight events Objective Vitals Vital Signs Date Time Temp Pulse Resp B/P (MAP) Pulse Ox O2 Delivery O2 Flow Rate FiO2 07/20/17 00:00 96.6 86 19 133/64 (87) 94 07/19/17 22:15 94 T-piece 50 07/19/17 22:15 94 T-piece 98 07/19/17 20:00 96.2 84 19 136/63 (87) 93 07/19/17 16:00 96.3 87 21 145/68 (93) 95 07/19/17 12:00 99.2 98 22 148/68 (94) 89 07/19/17 11:36 94 T-piece 8.00 50 07/19/17 11:36 94 T-piece 8.00 50 07/19/17 08:00 98.8 94 20 167/72 (103) 95 I/O 07/19/17 07/19/17 07/19/17 07/20/17 07/20/17 07/20/17 07:00 15:00 23:00 07:00 15:00 23:00 Intake Total 1269 ml 240 ml 640 ml 0 ml Output Total 225 ml 500 ml Balance 1044 ml 240 ml 640 ml -500 ml Intake Oral 240 ml 0 ml 0 ml Tube Feeding 429 ml 520 ml Tube Irrigant 600 ml Other 240 ml 120 ml Output Urine Total 225 ml 500 ml # Bowel Movements 1 1 2 Result Diagram: 07/16/17 0731 07/18/17 1118 Objective Remarks CONSTITUTIONAL/GEN: Lying in bed with tracheostomy and PEG tubes in place with head turned to left, she does open her eyes but cannot follow any commands. HEAD: Normocephalic. Atraumatic. Right side facial droop. LUNGS: CTAB. Breathing spontaneously via T-tube. CARDIOVASCULAR: Regular rate and rhythm. GI/ABD: Soft, non-distended. No grimacing with palpation.Feeding tube insertion point with no redness, no distention NEURO: Eyes open occasionally tracks; Flaccid paralysis on the right side. MUSC: SCDs on bilateral lower extremities. Pedal pulses present. SKIN: Sacral pressure ulcer extends from anus to coccyx. Procedures ORIF 04/21/17 Intubation 8/30/17 A/P Assessment and Plan 76 y/o female with HTN, DM admitted for DKA and hip fracture s/p large CVA after ORIF she is currently stable with her current treatment but has had no meaningful recovery and do not anticipate any further neurologic recovery from here on. Problem List: (1) Acute CVA (cerebrovascular accident) ICD Codes: I63.9 - Cerebral infarction, unspecified Status: Chronic Plan: Neurologically stable, no improvement. Overall prognosis is poor. Persistent oxygen requirement Resident team spoke with daughter on 07/19 and family still is looking for improvement and wish to remain full code and decline Hospice/Palliative care. Case management consult obtained for Medicaid edibility. Patient needs termite helper care facility for placement. -Titrate oxygen via trach to maintain O2 saturation above 92% Continue tube fees at 45ml/hr 24 hours per day thru peg Tube -Neurosurgery, neurology and palliative care have all been consulted in the past and agree with very poor prognosis with no meaningful neurologic recovery. History and imaging: Patient found minimally responsive with neurological deficits around 0820 04/24. Stat CT of head was ordered, which showed large left MCA infarct. Diffuse edema throughout the left MCA distribution, suggested completed infarct. This was discussed and was not a candidate for intracranial intervention. CT (04/30): Reduction in midline shift to 11mm. Unchanged large left MCA infarction. CT head (05/06) shows: Evolving large left-sided MCA territory infarct with minimally improved [id number] subfalcine shift. No intercurrent hemorrhage or other acute abnormality. Echocardiogram- The left ventricular systolic function is low normal with an estimated ejection fraction in the range of 50-55%. Mild concentric left ventricular hypertrophy. Normal left ventricular size. Fxqma-ky-iyzd mitral valve regurgitation. Carotid Artery US- No hemodynamically significant carotid stenosis (2) UTI (urinary tract infection) ICD Codes: N39.0 - Urinary tract infection, site not specified Status: Acute Plan: Recent UCx growing E coli - Treat with Bactrim x3 days - Course completed will repeat her UA with c/s today. History: - UTI (05/26) Ucx: Citrobacter freundii - ABx: s/p Cefepime x 7 days (3) Sacral decubitus ulcer ICD Codes: L89.159 - Pressure ulcer of sacral region, unspecified stage Status: Chronic Plan: Patient with Stage IV pressure injury over the coccyx. -Wound care consult appreciated: 1. Please cleanse coccyx wound every 3 days and PRN for soiling. 2. Apply Calcium Alginate to open wound bed. 3. Secure with bordered gauze every 3 days and PRN for soiling. 4. Continue to turn patient every 2 hours or PRN for comfort. 5. Use one ultrasorb for moisture. Please use flat sheet for repositioning. (4) Anemia ICD Codes: D64.9 - Anemia, unspecified Status: Chronic Plan: s/p 1u of PRBC on 05/28/17. Hgb stable around 10. Hemoccult negative on 05/29 - monitor H&H periodically (5) Urinary retention ICD Codes: R33.9 - Retention of urine, unspecified Status: Chronic Plan: -Leavitt cath done because patient was retaining urine with intermittent cath's - Cath last changed 07/15, pt afebrile -Urine output WNL (6) Type 2 diabetes mellitus ICD Codes: E11.9 - Type 2 diabetes mellitus without complications Status: Chronic Plan: BSG 280-340 last 48 hours seen on 07/19 and Levemir was increased to 15 units q 12. Still in the high 200s -- will increase to 18 units q12 hours today BS goal 140-180 -Discontinued SSI on 07/16 -AccuCheks QShift -Glucerna for PEG tube feedings @ 45 ml/hr -Glucagon 1 mg per PRN protocol for hypoglycemia BS <70mg/dL History Admitted for DKA which has now resolved. Hemoglobin A1C is 12.9. Diabetes Type II is uncontrolled. (7) Hip fracture ICD Codes: S72.009A - Fracture of unspecified part of neck of unspecified femur , initial encounter for closed fracture Status: Resolved Plan: S/P left hip reduction and intramedullary nail fixation on 04-21-17 -c/w Calcium/Vitamin D (8) Hypertension ICD Codes: I10 - Essential (primary) hypertension Status: Chronic Plan: -Antihypertensives to keep SBP<160, as per critical care recs -c/w clonidine 0.1mg Q6h PRN SBP >160 -c/w lisinopril 20mg Q12h po Echocardiogram 04/24 - EF 50 to 55%. Mild concentric LVH. (9) Fluids, Electrolytes, and Nutrition Status: Acute Plan: Fluids: through PEG tube Electrolyte: on electrolyte protocol Nutrition: continuous Glucerna tube feeds and free water, pump at 45mls/hr, tolerating feeds well, no residual. Protein 1 pack TID. Supplements: calcium TID and vit D3 QD DVT ppx: SCDs/heparin CVA ppx: aspirin 325 mg QD GI ppx: Lansoprazole 30mg qd via NG Colace, dulcolax PRN Problem Qualifiers (1) UTI (urinary tract infection): Qualified Codes: N39.0 - Urinary tract infection, site not specified (2) Sacral decubitus ulcer: Qualified Codes: L89.154 - Pressure ulcer of sacral region, stage 4 (3) Type 2 diabetes mellitus: Qualified Codes: E11.9 - Type 2 diabetes mellitus without complications (4) Hip fracture: (5) Hypertension: Qualified Codes: I10 - Essential (primary) hypertension Mei Harper MD Jul 20, 2017 07:32
[2017-07-20] MEDS: DOCUSATE SODIUM 100 MG/10 ML UDC PO SCH ×2 (07:57→21:00)
[2017-07-20] MEDS: LISINOPRIL 10 MG TAB PO SCH ×2 (07:58→22:22)
[2017-07-20] MEDS: LANSOPRAZOLE SOLUTAB 30 MG TAB NG SCH (07:59)
[2017-07-20] MEDS: ASPIRIN 325 MG TAB DOBHOFF SCH (07:59)
[2017-07-20] MEDS: CALCIUM/VITAMIN D 250 MG/125 U TAB PO SCH ×3 (07:59→15:53)
[2017-07-20] MEDS: CHOLECALCIFEROL (VIT D3) 5000 UNIT CAP PO SCH (07:59)
[2017-07-20] MEDS: POLYETHYLENE GLYCOL 17 GM PKG PEG SCH (08:00)
[2017-07-20] MEDS: SODIUM CHLORIDE 0.9% FLUSH 5 ML FLUSH IV FLUSH SCH ×2 (08:00→22:23)
[2017-07-20] MEDS: INSULIN DETEMIR 100 UNITS/ML VIAL SQ SCH ×2 (08:00→22:32)
[2017-07-20] MEDS: BENEPROTEIN POWDER 1 PACK G-TUBE SCH ×3 (08:08→15:51)
[2017-07-20 10:08] LABS: BILIRUBIN, URINE NEG (NEG); BLOOD, URINE MOD (NEG); GLUCOSE,URINE NEG (NEG); KETONE, URINE NEG (NEG); NITRITE,URINE POS (NEG); URINE COLOR YELLOW (YELLW/STRAW); URINE LEUKOCYTE ESTERASE TRACE (NEG)
[2017-07-20 10:38] LABS: BACTERIA, URINE MANY /hpf; SQUAMOUS EPITHELIAL CELL URINE 0-5 /hpf (0-5)
[2017-07-20 10:39] LABS: AMORPHOUS SEDIMENT, URINE OCC
[2017-07-20] MEDS: SULFAMETHOXAZOLE-TRIMETHOPRIM 800-160 MG/20 ML UDC PEG SCH ×2 (15:50→23:12)
[2017-07-20 16:33] LABS: BICARBONATE 30.5 MEQ/L (21.0-32.0); CALCIUM 8.7 MG/DL (8.5-10.1); CREATININE 0.48 MG/DL (0.50-1.00)
[2017-07-21] VITALS (9 sets, daily range): BP systolic 105–128; BP diastolic 56–62; PULSE 75–89; RESP 16–22; TEMP 96.3–98; O2SAT 91–100
[2017-07-21] MEDS ORDERED: RESP: ALBUTEROL 2.5 MG/IPRATROPIUM 0.5 MG NEB (SCH) NEB ONE (03:30)
[2017-07-21] MEDS ORDERED: RESP: ALBUTEROL 2.5 MG/IPRATROPIUM 0.5 MG NEB (PRN) NEB (04:15)
--- NOTE | 2017-07-21 04:42 | RADRPT ---
EXAM DATE/TIME: 07/21/2017 04:15 [facility] COMPARISON: CHEST SINGLE AP, July 15, 2017, 8:59. INDICATIONS : Short of breath MEDICAL HISTORY : Cerebrovascular disease. Hypertension SURGICAL HISTORY : Tracheostomy. ENCOUNTER: Subsequent ACUITY: 4 - 6 months PAIN SCORE: 0/10 LOCATION: Bilateral chest FINDINGS: Combination of consolidation and pleural effusion nearly completely opacifies the left hemithorax. Th ere is moderate pleural effusion and moderate parenchymal consolidation on the right. I don't see a p neumothorax. Heart size stable, within normal limits. Tracheostomy tube again noted. CONCLUSION: Left greater than the right parenchymal consolidation and pleural effusions. Findings are considerabl y worse in the interim. Obdulio Simms MD on July 21, 2017 at 4:40 Board Certified Radiologist. This report was verified electronically.
[2017-07-21] MEDS: HEPARIN SODIUM - SQ 10,000 UNITS/ML VIAL SQ SCH ×3 (06:22→20:35)
[2017-07-21] MEDS: ARTIFICIAL TEARS OPTH SOLN 15 ML BTL EACH EYE SCH ×3 (06:23→20:34)
[2017-07-21] MEDS ORDERED: RESP: ACETYLCYSTEINE 20% 30 ML NEB NEB PRN (07:00)
[2017-07-21] MEDS: SODIUM CHLORIDE 0.9% FLUSH 5 ML FLUSH IV FLUSH SCH ×2 (08:12→20:34)
[2017-07-21] MEDS: SULFAMETHOXAZOLE-TRIMETHOPRIM 800-160 MG/20 ML UDC PEG SCH (08:12)
[2017-07-21] MEDS: LANSOPRAZOLE SOLUTAB 30 MG TAB NG SCH (08:13)
[2017-07-21] MEDS: ASPIRIN 325 MG TAB DOBHOFF SCH (08:13)
[2017-07-21] MEDS: BENEPROTEIN POWDER 1 PACK G-TUBE SCH ×3 (08:13→17:39)
[2017-07-21] MEDS: LISINOPRIL 10 MG TAB PO SCH ×2 (08:13→20:33)
[2017-07-21] MEDS: CALCIUM/VITAMIN D 250 MG/125 U TAB PO SCH ×3 (08:13→17:39)
[2017-07-21] MEDS: DOCUSATE SODIUM 100 MG/10 ML UDC PO SCH ×2 (08:13→20:31)
[2017-07-21] MEDS: CHOLECALCIFEROL (VIT D3) 5000 UNIT CAP PO SCH (08:13)
[2017-07-21] MEDS: INSULIN DETEMIR 100 UNITS/ML VIAL SQ SCH ×2 (08:13→20:33)
[2017-07-21] MEDS: POLYETHYLENE GLYCOL 17 GM PKG PEG SCH (08:13)
[2017-07-21 09:04] LABS: AUTOMATED NEUTROPHIL # 15.8 TH/MM3 (1.8-7.7); BASOPHIL # 0.2 TH/MM3 (0-0.2); BASOPHIL % 1.1 % (0.0-2.0); EOSINOPHIL # 0.6 TH/MM3 (0-0.4); HEMATOCRIT 29.9 % (35.0-46.0); HEMOGLOBIN 9.7 GM/DL (11.6-15.3); LYMPHOCYTE # 2.9 TH/MM3 (1.0-4.8); MEAN CELL VOLUME 96.7 FL (80.0-100.0); MEAN CORPUSCULAR HEMOGLOBIN 31.4 PG (27.0-34.0); MEAN CORPUSCULAR HGB CONC 32.4 % (32.0-36.0); MEAN PLATELET VOLUME 11.7 FL (7.0-11.0); MONO % 6.2 % (0.0-8.0); MONOCYTE # 1.3 TH/MM3 (0-0.9); NEUT % 75.7 % (16.0-70.0); PLATELET COUNT 261 TH/MM3 (150-450); RED BLOOD COUNT 3.09 MIL/MM3 (4.00-5.30); RED CELL DISTRIBUTION WIDTH 17.5 % (11.6-17.2); WHITE BLOOD COUNT 20.9 TH/MM3 (4.0-11.0)
[2017-07-21 09:33] LABS: BANDS 4 % (0-6); LYMPHOCYTES 15 % (9-44); MONOCYTES 10 % (0-8); MYELOCYTES 1 % (0-0); NEUTROPHIL # MANUAL DIFF 14.6 TH/MM3 (1.8-7.7); POLYS (SEG NEUTROPHILS) 65 % (16-70)
[2017-07-21 09:35] LABS: TOXIC GRANULATION 1+ (NORMAL)
--- NOTE | 2017-07-21 09:53 | HHI.FPPN ---
Subjective Remarks Overnight had increased oxygen requirement to FIO2 of 98%. CXR obtained by overnight team showed worsened infiltrate on left compared to prior exam 07/15. Clinically patient appears at same level of alertness as last several weeks. (Klaus Tran MD R2) Objective Vitals Vital Signs Date Time Temp Pulse Resp B/P (MAP) Pulse Ox O2 Delivery O2 Flow Rate FiO2 07/21/17 08:34 T-Piece 98 07/21/17 08:00 98.0 89 18 125/59 (81) 91 07/21/17 04:00 97.1 81 19 117/62 (80) 92 07/21/17 00:00 97.1 82 19 128/62 (84) 95 07/20/17 22:19 95 T-Piece 9.00 98 07/20/17 20:00 97.6 85 18 122/68 (86) 95 07/20/17 19:57 96 T-piece 50 07/20/17 16:00 96.1 76 21 123/74 (90) 98 07/20/17 12:00 95.8 79 18 110/59 (76) 97 I/O 07/20/17 07/20/17 07/20/17 07/21/17 07/21/17 07/21/17 07:00 15:00 23:00 07:00 15:00 23:00 Intake Total 0 ml 729 ml 338 ml Output Total 500 ml 600 ml 900 ml Balance -500 ml 129 ml -562 ml Intake Oral 0 ml 0 ml 0 ml Tube Feeding 729 ml 338 ml Output Urine Total 500 ml 600 ml 900 ml # Bowel Movements 2 3 1 (Klaus Tran MD R2) Result Diagram: 07/21/17 0820 07/20/17 1546 Imaging Last Impressions Chest X-Ray 07/21/17 0000 Signed Impressions: Service Date/Time: Friday, July 21, 2017 04:15 - CONCLUSION: Left greater than the right parenchymal consolidation and pleural effusions. Findings are considerably worse in the interim. Obdulio Simms MD Hip and Pelvis X-Ray 07/09/17 0000 Signed Impressions: Service Date/Time: Sunday, July 09, 2017 14:04 - CONCLUSION: Anatomic alignment. Ricardo Middleotn MD FACR Liver Ultrasound 06/19/17 0000 Signed Impressions: Service Date/Time: June 13:20 - CONCLUSION: 1. Mildly increased echotexture of the liver characteristic of hepatic steatosis. 2. Gallbladder sludge. Obdulio Sam MD Abdomen X-Ray 06/16/17 0000 Signed Impressions: Service Date/Time: Friday, June 16, 2017 04:48 - CONCLUSION: 1. Continued small bowel ileus. There has been no significant change when compared to the prior exam. Toy Duran MD Head CT 05/15/17 0000 Signed Impressions: Service Date/Time: May 19:59 - CONCLUSION: 1. 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 2. No bleed or new/acute infarct. Obdulio Simms MD Gall Bladder Ultrasound 05/08/17 0000 Signed Impressions: Service Date/Time: May 08:23 - CONCLUSION: Focally unremarkable appearance of the gallbladder Obdulio Chun MD Abdomen/Pelvis CT 05/07/17 0000 Signed Impressions: Service Date/Time: Sunday, May 07, 2017 13:23 - CONCLUSION: 1. Large left pneumothorax. 2. Bilateral lower lobe consolidation and bilateral moderate size pleural effusions. 3. Significant soft tissue thickening of the right lateral chest wall and left gluteus muscle. 4. Mild ascites. The findings were called to Dr. Carney. Deangelo Zamora MD Chest CT 04/30/17 0000 Signed Impressions: Service Date/Time: Sunday, April 30, 2017 09:20 - CONCLUSION: 1. Bilateral pulmonary infiltrates more pronounced within the lower lobes with tiny bilateral pleural effusions. Material seen filling the lower lobe bronchi bilaterally either related to purulent material or perhaps mucus plugging. Deangelo Wren Jr., MD Carotid Artery Ultrasound 04/24/17 0000 Signed Impressions: Service Date/Time: April 09:45 - CONCLUSION: 1. No hemodynamically significant carotid artery stenosis. Arnie Middleton MD Hip X-Ray 04/21/17 0000 Signed Impressions: Service Date/Time: Friday, April 21, 2017 11:36 - CONCLUSION: Fluoroscopic images during placement of intramedullary siomara left femur. Benja Ramsey MD Objective Remarks CONSTITUTIONAL/GEN: Lying in bed with tracheostomy and PEG tubes in place with head turned to left, she does open her eyes but cannot follow any commands. HEAD: Normocephalic. Atraumatic. Right side facial droop. LUNGS: Bronchial breath sounds bilaterally. Severely diminished breath sounds on the left. Breathing spontaneously via T-tube. CARDIOVASCULAR: Regular rate and rhythm. GI/ABD: Soft, non-distended. No grimacing with palpation.Feeding tube insertion point with no redness, no distention NEURO: Eyes open, occasionally tracks; Flaccid paralysis on the right side. MUSC: SCDs on bilateral lower extremities. Pedal pulses present. SKIN: Sacral pressure ulcer extends from anus to coccyx. Procedures ORIF 04/21/17 Intubation 04/30/17 (Klaus Tran MD R2) A/P Assessment and Plan 76 y/o female with HTN, DM admitted for DKA and hip fracture s/p large CVA after ORIF she is currently stable with her current treatment but has had no meaningful functional recovery and do not anticipate any further neurologic recovery from here on. (Klaus Tran MD R2) Attending Attestation Patient seen and examined. Case reviewed and discussed with the resident team. Agree with plan of care as discussed with me and documented in the resident note. Patient with clinical decline overnight and agree with assessment and plan as above. The family does want aggressive care. Currently treating for HAP -- will consult ID for assistance with this patient. She is at high risk for sepsis and decline from any infection. Stop the bactrim for the UTI as this was not helping and also she is now being covered with the IV abx listed above. Due to new illness will resume more freq accuchecks and sliding scale insulin for coverage and will follow labs and cultures. Residents will attempt to speak with the daughter today to update her on the status of the patient. (Mei Harper MD) Problem List: (1) Chronic respiratory failure ICD Codes: J96.10 - Chronic respiratory failure, unspecified whether with hypoxia or hypercapnia Plan: At this point, respiratory failure is chronic. It is unlikely she will ever be able to be without oxygen through her T-tube Overnight with increased O2 requirement and worsened left sided infiltrate on CXR Infiltrate likely due to mucus plug causing complete atelectasis of L lung, but with chronic hospitalization could easily be HAP CBC showing new leukocytosis to 20.9 - Obtain sputum culture and gram stain from suctioning of T-tube - Zosyn and azithromycin until culture results available - Check urine S pneumonia antigen, legionella antigen - Consider pulmonology consult for bronchoscopy to remove likely mucus plug Infection History MSSA bacteremia Serratia/staph aureus pneumonia C glabrata UTI Citrobacter UTI Serratia/MSSA sputum VAP Antibiotic History Cefazolin: 04/21-04/22, 05/15-05/16 Cefepime: 04/30-05/04, 05/27-06/03 Ceftrioxone 05/26-05/27 Erythromycin 06/16-06/18, 06/19 Gentamicin 04/21 vancomycin 04/30-05/04, 06/21-06/23 Zosyn 07/21 - present Azithromycin 07/21 - present (2) Acute CVA (cerebrovascular accident) ICD Codes: I63.9 - Cerebral infarction, unspecified Status: Chronic Plan: Neurologically stable, no improvement. Overall prognosis is poor. Persistent oxygen requirement Resident team spoke with daughter on 07/19 and family still is looking for improvement and wish to remain full code and decline Hospice/Palliative care. Case management consult obtained for Medicaid edibility. Patient needs shelter care facility for placement. -Titrate oxygen via trach to maintain O2 saturation above 92% -Continue tube fees at 45ml/hr 24 hours per day thru peg Tube -Neurosurgery, neurology and palliative care have all been consulted in the past and agree with very poor prognosis with no meaningful neurologic recovery. History and imaging: Patient found minimally responsive with neurological deficits around 0820 04/24. Stat CT of head was ordered, which showed large left MCA infarct. Diffuse edema throughout the left MCA distribution, suggested completed infarct. This was discussed and was not a candidate for intracranial intervention. CT (04/30): Reduction in midline shift to 11mm. Unchanged large left MCA infarction. CT head (05/06) shows: Evolving large left-sided MCA territory infarct with minimally improved [id number]-[id number] subfalcine shift. No intercurrent hemorrhage or other acute abnormality. Echocardiogram- The left ventricular systolic function is low normal with an estimated ejection fraction in the range of 50-55%. Mild concentric left ventricular hypertrophy. Normal left ventricular size. Vdztt-[id number] mitral valve regurgitation. Carotid Artery US- No hemodynamically significant carotid stenosis (3) UTI (urinary tract infection) ICD Codes: N39.0 - Urinary tract infection, site not specified Status: Acute Plan: Recent UCx growing E coli Repeat UCx also growing E coli - Continue Bactrim BID for now - Repeat UCx, ensure specimen obtained from newly catheterized urine, not standing Leavitt bag History: - UTI (05/26) Ucx: Citrobacter freundii - ABx: s/p Cefepime x 7 days (4) Sacral decubitus ulcer ICD Codes: L89.159 - Pressure ulcer of sacral region, unspecified stage Status: Chronic Plan: Patient with Stage IV pressure injury over the coccyx -Wound care consult appreciated: 1. Please cleanse coccyx wound every 3 days and PRN for soiling. 2. Apply Calcium Alginate to open wound bed. 3. Secure with bordered gauze every 3 days and PRN for soiling. 4. Continue to turn patient every 2 hours or PRN for comfort. 5. Use one ultrasorb for moisture. Please use flat sheet for repositioning. (5) Anemia ICD Codes: D64.9 - Anemia, unspecified Status: Chronic Plan: s/p 1u of PRBC on 05/28/17. Hgb stable around 10. Hemoccult negative on 05/29 - monitor H&H periodically (6) Urinary retention ICD Codes: R33.9 - Retention of urine, unspecified Status: Chronic Plan: -Leavitt cath done because patient was retaining urine with intermittent cath's - Cath last changed 07/15, pt afebrile -Urine output WNL (7) Type 2 diabetes mellitus ICD Codes: E11.9 - Type 2 diabetes mellitus without complications Status: Chronic Plan: BSG 280-340 last 48 hours seen on 07/19 and Levemir was increased to 15 units q 12. Still in the high 200s -- will increase to 18 units q12 hours today BS goal 140-180 -Discontinued SSI on 07/16 -AccuCheks QShift -Glucerna for PEG tube feedings @ 45 ml/hr -Glucagon 1 mg per PRN protocol for hypoglycemia BS <70mg/dL History Admitted for DKA which has now resolved. Hemoglobin A1C is 12.9. Diabetes Type II is uncontrolled. (8) Hip fracture ICD Codes: S72.009A - Fracture of unspecified part of neck of unspecified femur , initial encounter for closed fracture Status: Resolved Plan: S/P left hip reduction and intramedullary nail fixation on 04-21-17 -c/w Calcium/Vitamin D (9) Hypertension ICD Codes: I10 - Essential (primary) hypertension Status: Chronic Plan: -Antihypertensives to keep SBP<160, as per critical care recs -c/w clonidine 0.1mg Q6h PRN SBP >160 -c/w lisinopril 20mg Q12h po Echocardiogram 04/24 - EF 50 to 55%. Mild concentric LVH. (10) Fluids, Electrolytes, and Nutrition Status: Acute Plan: Fluids: through PEG tube Electrolyte: on electrolyte protocol Nutrition: continuous Glucerna tube feeds and free water, pump at 45mls/hr, tolerating feeds well, no residual. Protein 1 pack TID. Supplements: calcium TID and vit D3 QD DVT ppx: SCDs/heparin CVA ppx: aspirin 325 mg QD GI ppx: Lansoprazole 30mg qd via NG Colace, dulcolax PRN (Klaus Tran MD R2) Problem Qualifiers (1) Chronic respiratory failure: Qualified Codes: J96.11 - Chronic respiratory failure with hypoxia (2) UTI (urinary tract infection): Qualified Codes: N39.0 - Urinary tract infection, site not specified (3) Sacral decubitus ulcer: Qualified Codes: L89.154 - Pressure ulcer of sacral region, stage 4 (4) Type 2 diabetes mellitus: Qualified Codes: E11.9 - Type 2 diabetes mellitus without complications (5) Hip fracture: (6) Hypertension: Qualified Codes: I10 - Essential (primary) hypertension Klaus Tran MD R2 Jul 21, 2017 09:53 Mei Harper MD Jul 21, 2017 15:34
[2017-07-21] MEDS: PIPERACIL-TAZO 4.5 GM PREMIX 100 ML IV SCH ×3 (11:01→20:41)
[2017-07-21] MEDS: RESP: ALBUTEROL 2.5 MG/IPRATROPIUM 0.5 MG NEB (SCH) NEB ×3 (11:28→21:52)
[2017-07-21] MEDS: AZITHROMYCIN INJ 500 MG in SODIUM CHLOR 0.9% 250 ML INJ 250 ML IV SCH (12:10)
[2017-07-21] MEDS: INSULIN ASPART SUPPLEMENTAL SCALE SQ SCH (17:39)
[2017-07-22] VITALS (9 sets, daily range): BP systolic 103–129; BP diastolic 51–60; PULSE 81–95; RESP 16–22; TEMP 95.8–98.7; O2SAT 92–100
[2017-07-22] MEDS: RESP: ALBUTEROL 2.5 MG/IPRATROPIUM 0.5 MG NEB (SCH) NEB ×4 (04:49→20:29)
[2017-07-22] MEDS: PIPERACIL-TAZO 4.5 GM PREMIX 100 ML IV SCH ×3 (05:13→18:45)
[2017-07-22] MEDS: DEXTROSE 50% IN WATER 50 ML SYRINGE IV PUSH PRN (05:24)
[2017-07-22] MEDS: INSULIN ASPART SUPPLEMENTAL SCALE SQ SCH ×5 (05:28→22:09)
[2017-07-22] MEDS: ARTIFICIAL TEARS OPTH SOLN 15 ML BTL EACH EYE SCH ×3 (05:28→22:07)
[2017-07-22] MEDS: HEPARIN SODIUM - SQ 10,000 UNITS/ML VIAL SQ SCH ×3 (05:30→21:52)
[2017-07-22] MEDS: POLYETHYLENE GLYCOL 17 GM PKG PEG SCH (08:16)
[2017-07-22] MEDS: DOCUSATE SODIUM 100 MG/10 ML UDC PO SCH ×2 (08:16→21:52)
[2017-07-22 10:10] LABS: AUTOMATED NEUTROPHIL # 7.4 TH/MM3 (1.8-7.7); BASOPHIL # 0.1 TH/MM3 (0-0.2); BASOPHIL % 1.1 % (0.0-2.0); EOSINOPHIL # 0.4 TH/MM3 (0-0.4); EOSINOPHIL % 4.3 % (0.0-4.0); HEMATOCRIT 26.5 % (35.0-46.0); HEMOGLOBIN 8.8 GM/DL (11.6-15.3); LYMPHOCYTE # 1.1 TH/MM3 (1.0-4.8); MEAN CELL VOLUME 96.9 FL (80.0-100.0); MEAN CORPUSCULAR HEMOGLOBIN 32.2 PG (27.0-34.0); MEAN CORPUSCULAR HGB CONC 33.3 % (32.0-36.0); MEAN PLATELET VOLUME 10.9 FL (7.0-11.0); MONO % 5.3 % (0.0-8.0); MONOCYTE # 0.5 TH/MM3 (0-0.9); NEUT % 77.3 % (16.0-70.0); PLATELET COUNT 241 TH/MM3 (150-450); RED BLOOD COUNT 2.74 MIL/MM3 (4.00-5.30); RED CELL DISTRIBUTION WIDTH 17.5 % (11.6-17.2); WHITE BLOOD COUNT 9.5 TH/MM3 (4.0-11.0)
[2017-07-22 10:33] LABS: BICARBONATE 28.2 MEQ/L (21.0-32.0); CALCIUM 8.8 MG/DL (8.5-10.1); CREATININE 0.57 MG/DL (0.50-1.00)
[2017-07-22 10:44] LABS: BANDS 3 % (0-6); BASOPHILS 1 % (0-2); LYMPHOCYTES 11 % (9-44); METAMYELOCYTES 1 % (0-1); MONOCYTES 4 % (0-8); MYELOCYTES 3 % (0-0); NEUTROPHIL # MANUAL DIFF 7.8 TH/MM3 (1.8-7.7); POLYS (SEG NEUTROPHILS) 75 % (16-70)
--- NOTE | 2017-07-22 11:30 | HHI.FPPN ---
Subjective Remarks Patient seen and examined at bedside. No acute events overnight. Patient is more alert, spontaneously opening her eyes, moving her head, however not on command or in response to questions. (Chito Damon MD, R1) Objective Vitals Vital Signs Date Time Temp Pulse Resp B/P (MAP) Pulse Ox O2 Delivery O2 Flow Rate FiO2 07/22/17 10:49 99 T-piece 50 07/22/17 10:45 100 T-piece 50 07/22/17 00:19 92 T-piece 7.00 50 07/22/17 00:00 98.7 91 22 103/51 (68) 98 07/21/17 21:57 98 T-piece 6.00 70 07/21/17 20:00 97.3 83 22 116/56 (76) 96 07/21/17 16:07 92 T-piece 70 07/21/17 16:00 96.3 88 16 105/58 (74) 100 07/21/17 12:00 96.5 75 17 116/58 (77) 98 I/O 07/21/17 07/21/17 07/21/17 07/22/17 07/22/17 07/22/17 07:00 15:00 23:00 07:00 15:00 23:00 Intake Total 338 ml 350 ml 789 ml 607 ml Output Total 900 ml 800 ml 1700 ml Balance -562 ml 350 ml -11 ml -1093 ml Intake Oral 0 ml 0 ml 0 ml IV Total 350 ml 200 ml 100 ml Tube Feeding 338 ml 469 ml 507 ml Tube Irrigant 120 ml Output Urine Total 900 ml 800 ml 1700 ml # Bowel Movements 1 2 2 (Chito Damon MD, R1) Result Diagram: 07/22/1794207/22/1743 Objective Remarks CONSTITUTIONAL/GEN: Siting in chair with tracheostomy and PEG tubes in place with head turned to left, she does open her eyes but cannot follow any commands. HEAD: Normocephalic. Atraumatic. Right side facial droop. LUNGS: CTA BL. Breathing spontaneously via T-tube. CARDIOVASCULAR: Regular rate and rhythm. GI/ABD: Soft, non-distended. No grimacing with palpation.Feeding tube insertion point with no redness, no distention NEURO: Eyes open, occasionally tracks; Flaccid paralysis on the right side. MUSC: SCDs on bilateral lower extremities. Pedal pulses present. SKIN: Sacral pressure ulcer extends from anus to coccyx. Procedures ORIF 04/21/17 Intubation 04/30/17 (Chito Damon MD, R1) A/P Assessment and Plan 76 y/o female with HTN, DM admitted for DKA and hip fracture s/p large CVA after ORIF she is currently stable with her current treatment but has had no meaningful functional recovery and do not anticipate any further neurologic recovery from here on. (Chito Damon MD, R1) Attending Attestation Patient seen and examined. Case reviewed and discussed with the resident team. Agree with plan of care as discussed with me and documented in the resident note. (Mei Harper MD) Problem List: (1) Chronic respiratory failure ICD Codes: J96.10 - Chronic respiratory failure, unspecified whether with hypoxia or hypercapnia Plan: At this point, respiratory failure is chronic. It is unlikely she will ever be able to be without oxygen through her T-tube Patient with increased O2 requirement and worsened left sided infiltrate on CXR on 07/21 Infiltrate likely due to mucus plug causing complete atelectasis of L lung, but with chronic hospitalization could easily be HAP CBC showing new leukocytosis to 20.9 on 07/21, improved WBC-9.5 on 07/22 - sputum culture from suctioning of T-tube positive for gram negative siomara - c/w Zosyn and azithromycin - blood cx from 07/21 no growth 1 day - legionella urine antigen negative - f/u urine S pneumonia antigen -ID consulted, recommendations appreciated - Consider pulmonology consult for bronchoscopy to remove likely mucus plug Infection History MSSA bacteremia Serratia/staph aureus pneumonia C glabrata UTI Citrobacter UTI Serratia/MSSA sputum VAP Antibiotic History Cefazolin: 04/21-04/22, 05/15-05/16 Cefepime: 04/30-05/04, 05/27-06/03 Ceftrioxone 05/26-05/27 Erythromycin 06/16-06/18, 06/19 Gentamicin 04/21 vancomycin 04/30-05/04, 06/21-06/23 Zosyn 07/21 - present Azithromycin 07/21 - present (2) Acute CVA (cerebrovascular accident) ICD Codes: I63.9 - Cerebral infarction, unspecified Status: Chronic Plan: Neurologically stable, no improvement. Overall prognosis is poor. Persistent oxygen requirement Resident team spoke with daughter on 07/19 and family still is looking for improvement and wish to remain full code and decline Hospice/Palliative care. Case management consult obtained for Medicaid edibility. Patient needs ferry terminal agent care facility for placement. -Titrate oxygen via trach to maintain O2 saturation above 92% -Continue tube fees at 45ml/hr 24 hours per day thru peg Tube -Neurosurgery, neurology and palliative care have all been consulted in the past and agree with very poor prognosis with no meaningful neurologic recovery. History and imaging: Patient found minimally responsive with neurological deficits around 0820 04/24. Stat CT of head was ordered, which showed large left MCA infarct. Diffuse edema throughout the left MCA distribution, suggested completed infarct. This was discussed and was not a candidate for intracranial intervention. CT (04/30): Reduction in midline shift to 11mm. Unchanged large left MCA infarction. CT head (05/06) shows: Evolving large left-sided MCA territory infarct with minimally improved [id number]-ng-[id number] subfalcine shift. No intercurrent hemorrhage or other acute abnormality. Echocardiogram- The left ventricular systolic function is low normal with an estimated ejection fraction in the range of 50-55%. Mild concentric left ventricular hypertrophy. Normal left ventricular size. Vbcbm-wy-zmuw mitral valve regurgitation. Carotid Artery US- No hemodynamically significant carotid stenosis (3) UTI (urinary tract infection) ICD Codes: N39.0 - Urinary tract infection, site not specified Status: Acute Plan: UCx on 07/15 positive for E coli Repeat UCx on 07/20 positive for C. Freundii - Continue zosyn - Consider repeat UCx, ensure specimen obtained from newly catheterized urine, not standing Leavitt bag History: - UTI (05/26) Ucx: Citrobacter freundii - ABx: s/p Cefepime x 7 days (4) Sacral decubitus ulcer ICD Codes: L89.159 - Pressure ulcer of sacral region, unspecified stage Status: Chronic Plan: Patient with Stage IV pressure injury over the coccyx -Wound care consult appreciated: 1. Please cleanse coccyx wound every 3 days and PRN for soiling. 2. Apply Calcium Alginate to open wound bed. 3. Secure with bordered gauze every 3 days and PRN for soiling. 4. Continue to turn patient every 2 hours or PRN for comfort. 5. Use one ultrasorb for moisture. Please use flat sheet for repositioning. (5) Anemia ICD Codes: D64.9 - Anemia, unspecified Status: Chronic Plan: s/p 1u of PRBC on 05/28/17. Hgb stable Hemoccult negative on 05/29 - monitor H&H periodically (6) Urinary retention ICD Codes: R33.9 - Retention of urine, unspecified Status: Chronic Plan: -Leavitt cath done because patient was retaining urine with intermittent cath's - Cath last changed 07/15, pt afebrile -Urine output WNL (7) Type 2 diabetes mellitus ICD Codes: E11.9 - Type 2 diabetes mellitus without complications Status: Chronic Plan: BSG 24 hr range 57-241 -Decreased Levemir to 15 units q 12 due to BG range below goal. -Will continue to monitor -BS goal 140-180 -Discontinued SSI on 07/16 -AccuCheks QShift -Glucerna for PEG tube feedings @ 45 ml/hr -Glucagon 1 mg per PRN protocol for hypoglycemia BS <70mg/dL History Admitted for DKA which has now resolved. Hemoglobin A1C is 12.9. Diabetes Type II is uncontrolled. (8) Hip fracture ICD Codes: S72.009A - Fracture of unspecified part of neck of unspecified femur , initial encounter for closed fracture Status: Resolved Plan: S/P left hip reduction and intramedullary nail fixation on 04-21-17 -c/w Calcium/Vitamin D (9) Hypertension ICD Codes: I10 - Essential (primary) hypertension Status: Chronic Plan: -Antihypertensives to keep SBP<160, as per critical care recs -c/w clonidine 0.1mg Q6h PRN SBP >160 -c/w lisinopril 20mg Q12h po Echocardiogram 04/24 - EF 50 to 55%. Mild concentric LVH. (10) Fluids, Electrolytes, and Nutrition Status: Acute Plan: Fluids: through PEG tube Electrolyte: on electrolyte protocol Nutrition: continuous Glucerna tube feeds and free water, pump at 45mls/hr, tolerating feeds well, no residual. Protein 1 pack TID. Supplements: calcium TID and vit D3 QD DVT ppx: SCDs/heparin CVA ppx: aspirin 325 mg QD GI ppx: Lansoprazole 30mg qd via NG Colace, dulcolax PRN (Chito Damon MD, R1) Problem Qualifiers (1) Chronic respiratory failure: Qualified Codes: J96.11 - Chronic respiratory failure with hypoxia (2) UTI (urinary tract infection): Qualified Codes: N39.0 - Urinary tract infection, site not specified (3) Sacral decubitus ulcer: Qualified Codes: L89.154 - Pressure ulcer of sacral region, stage 4 (4) Type 2 diabetes mellitus: Qualified Codes: E11.9 - Type 2 diabetes mellitus without complications (5) Hip fracture: (6) Hypertension: Qualified Codes: I10 - Essential (primary) hypertension Chito Damon MD, R1 Jul 22, 2017 11:30 Mei Harper MD Jul 22, 2017 15:58
--- NOTE | 2017-07-22 12:24 | HHI.IDPN ---
Subjective Subjective Remarks is a 76 y/o CF with PMHx of stroke, diabetes mellitus who was admitted with DKA and a hip fracture for which she underwent ORIF on 04/21. While in hospital recovering, patient developed altered mental status. Due to worsening mental status a stroke alert was called. Head CT showed large left MCA territory ischemic infarct with edema. Patient was transferred to the ICU by family medicine service and critical care consult was requested. At the time of evaluation in [facility], patient was opening her eyes however not following commands and had a dense right hemiplegia. Patient was also evaluated by Dr. Malave from neurology. At baseline, the patient lives with her daughter since her stroke in 2014 and does ambulate however has been having problems with memory and incontinence as well as gait difficulties. She does not feel patient would want intubation or tracheostomy or PEG tube. On 05/01/17 patient was intubated for severe hypoxemic respiratory failure from aspiration pneumonia. She also had a temp of 101 F. Blood culture and sputum culture with staph aureus sputum also growing GNR, WBC count 22,000 now indicating worsening sepsis. 05/06/[address] head with massive left MCA infarction and > 1 cm shift in right handed woman. Meanwhile patient is also being treated for C.glabrata UTI. At the time of my evaluation, patient is in [facility] on ventilator. She spontaneously opens eyes, did not follow commands for me. She underwent a CT A/ P which shows a left side pneumothorax. is placing a pigtail chest tube. She has a moser in place but no central line. ID is consulted for evaluation and Mment of Sepsis, MSSA and aspiration pneumonia, C.glabrata UTI. Overnight events reviewed with RN. No fevers Not much secretions. PEG tube and trach site ok. Sitting in chair on T piece/. Does not track or follow commands UO ok. Antibiotics Zosyn IV Lines Line sites with no e.o infection. Past Medical History reviewed Allergies: Coded Allergies: No Known Allergies (Unverified , 04/20/17) Objective . Vital Signs Date Time Temp Pulse Resp B/P (MAP) Pulse Ox O2 Delivery O2 Flow Rate FiO2 07/22/17 10:49 99 T-piece 50 07/22/17 10:45 100 T-piece 50 07/22/17 00:19 92 T-piece 7.00 50 07/22/17 00:00 98.7 91 22 103/51 (68) 98 07/21/17 21:57 98 T-piece 6.00 70 07/21/17 20:00 97.3 83 22 116/56 (76) 96 07/21/17 16:07 92 T-piece 70 07/21/17 16:00 96.3 88 16 105/58 (74) 100 . Laboratory Tests Test 07/21/17 08:20 07/22/17 09:43 White Blood Count 20.9 TH/MM3 9.5 TH/MM3 Red Blood Count 3.09 MIL/MM3 2.74 MIL/MM3 Hemoglobin 9.7 GM/DL 8.8 GM/DL Hematocrit 29.9 % 26.5 % Mean Corpuscular Volume 96.7 FL 96.9 FL Mean Corpuscular Hemoglobin 31.4 PG 32.2 PG Mean Corpuscular Hemoglobin Concent 32.4 % 33.3 % Red Cell Distribution Width 17.5 % 17.5 % Platelet Count 261 TH/MM3 241 TH/MM3 Mean Platelet Volume 11.7 FL 10.9 FL Neutrophils (%) (Auto) 75.7 % 77.3 % Lymphocytes (%) (Auto) 14.0 % 12.0 % Monocytes (%) (Auto) 6.2 % 5.3 % Eosinophils (%) (Auto) 3.0 % 4.3 % Basophils (%) (Auto) 1.1 % 1.1 % Neutrophils # (Auto) 15.8 TH/MM3 7.4 TH/MM3 Lymphocytes # (Auto) 2.9 TH/MM3 1.1 TH/MM3 Monocytes # (Auto) 1.3 TH/MM3 0.5 TH/MM3 Eosinophils # (Auto) 0.6 TH/MM3 0.4 TH/MM3 Basophils # (Auto) 0.2 TH/MM3 0.1 TH/MM3 CBC Comment AUTO DIFF AUTO DIFF Differential Total Cells Counted 100 100 Neutrophils % (Manual) 65 % 75 % Band Neutrophils % 4 % 3 % Lymphocytes % 15 % 11 % Monocytes % 10 % 4 % Eosinophils % 5 % 2 % Neutrophils # (Manual) 14.6 TH/MM3 7.8 TH/MM3 Myelocytes 1 % 3 % Differential Comment FINAL DIFF MANUAL FINAL DIFF MANUAL Toxic Granulation 1+ Platelet Estimate NORMAL NORMAL Platelet Morphology Comment ENLARGED NORMAL Hematology Comments Basophils % 1 % Metamyelocytes 1 % Red Cell Morphology Comment NORMAL Laboratory Tests Test 07/20/17 15:46 07/22/17 09:43 Blood Urea Nitrogen 39 MG/DL 40 MG/DL Creatinine 0.48 MG/DL 0.57 MG/DL Random Glucose 112 MG/DL 67 MG/DL Calcium Level 8.7 MG/DL 8.8 MG/DL Sodium Level 138 MEQ/L 138 MEQ/L Potassium Level 4.7 MEQ/L 4.5 MEQ/L Chloride Level 102 MEQ/L 104 MEQ/L Carbon Dioxide Level 30.5 MEQ/L 28.2 MEQ/L Anion Gap 6 MEQ/L 6 MEQ/L Estimat Glomerular Filtration Rate 126 ML/MIN 104 ML/MIN Microbiology Date/Time Source Procedure Growth Status 07/21/17 15:46 Blood Peripheral Aerobic Blood Culture - Preliminary NO GROWTH IN 1 DAY Resulted 07/21/17 15:46 Blood Peripheral Anaerobic Blood Culture - Preliminary NO GROWTH IN 1 DAY Resulted 07/21/17 15:38 Blood Peripheral Aerobic Blood Culture - Preliminary NO GROWTH IN 1 DAY Resulted 07/21/17 15:38 Blood Peripheral Anaerobic Blood Culture - Preliminary NO GROWTH IN 1 DAY Resulted 07/21/17 11:25 Sputum Expectorated Sputum Gram Stain - Final Resulted 07/21/17 11:25 Sputum Culture - Preliminary Gram Negative Juan Resulted 07/21/17 11:13 Urine Catheterized Urine Legionella Antigen - Final PRESUMPTIVE NEGATIVE FOR LEGIONELLA P... Complete 07/21/17 11:13 Urine Catheterized Urine Streptococcus pneumoniae Antigen (M - Final PRESUMPTIVE NEGATIVE FOR STREPTOCOCCU... Complete 07/20/17 09:32 Urine Catheterized Urine Urine Culture - Final Citrobacter Freundii Complete Imaging Last Impressions Chest X-Ray 05/11/17 0000 Signed Impressions: Service Date/Time: Thursday, May 11, 2017 09:37 - CONCLUSION: 1. Small right pleural effusion. 2. Bilateral mid and lower lung zone predominant air space opacity could represent pulmonary edema given the appearance and distribution. Obdulio Sam MD Abdomen X-Ray 05/10/17 0000 Signed Impressions: Service Date/Time: Wednesday, May 10, 2017 22:08 - CONCLUSION: Tip of Dobbhoff catheter is in the antrum of the stomach. Sage Adler MD Gall Bladder Ultrasound 05/08/17 0000 Signed Impressions: Service Date/Time: May 08:23 - CONCLUSION: Focally unremarkable appearance of the gallbladder Obdulio Chun MD Abdomen/Pelvis CT 05/07/17 0000 Signed Impressions: Service Date/Time: Sunday, May 07, 2017 13:23 - CONCLUSION: 1. Large left pneumothorax. 2. Bilateral lower lobe consolidation and bilateral moderate size pleural effusions. 3. Significant soft tissue thickening of the right lateral chest wall and left gluteus muscle. 4. Mild ascites. The findings were called to Dr. Carney. Deangelo Zamora MD Head CT 05/06/17 0000 Signed Impressions: Service Date/Time: Saturday, May 06, 2017 04:18 - CONCLUSION: 1. Evolving large left-sided MCA territory infarct with minimally improved jkoa-ca-ftmha subfalcine shift. 2. No intercurrent hemorrhage or other acute abnormality. Alejo De La Vega MD Hip and Pelvis X-Ray 05/05/17 0000 Signed Impressions: Service Date/Time: Friday, May 05, 2017 10:59 - CONCLUSION: Left proximal femur trochanteric/subtrochanteric fracture lucency visualized. Postoperative changes. Choco Mustafa MD Chest CT 04/30/17 0000 Signed Impressions: Service Date/Time: Sunday, April 30, 2017 09:20 - CONCLUSION: 1. Bilateral pulmonary infiltrates more pronounced within the lower lobes with tiny bilateral pleural effusions. Material seen filling the lower lobe bronchi bilaterally either related to purulent material or perhaps mucus plugging. Deangelo Wren Jr., MD Carotid Artery Ultrasound 04/24/17 0000 Signed Impressions: Service Date/Time: April 09:45 - CONCLUSION: 1. No hemodynamically significant carotid artery stenosis. Arnie Middleton MD Hip X-Ray 04/21/17 0000 Signed Impressions: Service Date/Time: Friday, April 21, 2017 11:36 - CONCLUSION: Fluoroscopic images during placement of intramedullary juan left femur. Benja Ramsey MD Physical Exam GENERAL: Well-developed patient, in no apparent distress. SKIN: No rashes, ecchymoses or lesions. Cool and dry. EYES: Pupils equal round and reactive. Extraocular motions intact. No scleral icterus. No injection or drainage. ENT: NAD NECK: Trachea midline. Supple, nontender, no meningeal signs. CARDIOVASCULAR: Regular rate and rhythm without murmurs, gallops, or rubs. RESPIRATORY: Clear to auscultation. Breath sounds equal bilaterally. GASTROINTESTINAL: Abdomen soft, distended. No tenderness. MUSCULOSKELETAL: Pedal edema. Generalized anasarca. NEUROLOGICAL:. Opens eyes, not tracking, Does not track or follow commands Psych: could not be assessed. IV line sites with no e.o infection. Assessment & Plan Remarks Sepsis Gram negative pneumonia. Left MCA infarction Recs: Continue Zosyn IV pending susceptibility of GNR in sputum. Follow cultures Follow clinically. Jane Slater MD Jul 22, 2017 12:24
[2017-07-22] MEDS: BENEPROTEIN POWDER 1 PACK G-TUBE SCH ×3 (13:41→18:45)
[2017-07-22] MEDS: LANSOPRAZOLE SOLUTAB 30 MG TAB NG SCH (13:41)
[2017-07-22] MEDS: SODIUM CHLORIDE 0.9% FLUSH 5 ML FLUSH IV FLUSH SCH ×2 (13:41→21:53)
[2017-07-22] MEDS: ASPIRIN 325 MG TAB DOBHOFF SCH (13:41)
[2017-07-22] MEDS: CHOLECALCIFEROL (VIT D3) 5000 UNIT CAP PO SCH (13:42)
[2017-07-22] MEDS: LISINOPRIL 10 MG TAB PO SCH ×2 (13:42→21:53)
[2017-07-22] MEDS: CALCIUM/VITAMIN D 250 MG/125 U TAB PO SCH ×3 (13:42→18:45)
[2017-07-22] MEDS: INSULIN DETEMIR 100 UNITS/ML VIAL SQ SCH ×2 (13:46→21:00)
[2017-07-22] MEDS: AZITHROMYCIN INJ 500 MG in SODIUM CHLOR 0.9% 250 ML INJ 250 ML IV SCH (13:47)
[2017-07-23] VITALS (10 sets, daily range): BP systolic 114–149; BP diastolic 58–84; PULSE 87–98; RESP 17–21; TEMP 95.4–98.1; O2SAT 95–100
[2017-07-23] MEDS: PIPERACIL-TAZO 4.5 GM PREMIX 100 ML IV SCH ×4 (00:33→16:04)
[2017-07-23] MEDS: HEPARIN SODIUM - SQ 10,000 UNITS/ML VIAL SQ SCH ×2 (04:25→16:05)
[2017-07-23] MEDS: INSULIN ASPART SUPPLEMENTAL SCALE SQ SCH ×2 (04:27→16:06)
[2017-07-23] MEDS: ARTIFICIAL TEARS OPTH SOLN 15 ML BTL EACH EYE SCH ×2 (04:27→16:06)
[2017-07-23] MEDS: RESP: ALBUTEROL 2.5 MG/IPRATROPIUM 0.5 MG NEB (SCH) NEB ×4 (04:41→21:19)
[2017-07-23 06:58] LABS: AUTOMATED NEUTROPHIL # 7.3 TH/MM3 (1.8-7.7); BASOPHIL # 0.1 TH/MM3 (0-0.2); BASOPHIL % 1.3 % (0.0-2.0); EOSINOPHIL # 0.4 TH/MM3 (0-0.4); EOSINOPHIL % 4.1 % (0.0-4.0); HEMATOCRIT 28.1 % (35.0-46.0); HEMOGLOBIN 9.3 GM/DL (11.6-15.3); LYMPHOCYTE # 1.7 TH/MM3 (1.0-4.8); MEAN CELL VOLUME 97.1 FL (80.0-100.0); MEAN CORPUSCULAR HEMOGLOBIN 32.3 PG (27.0-34.0); MEAN CORPUSCULAR HGB CONC 33.2 % (32.0-36.0); MEAN PLATELET VOLUME 10.3 FL (7.0-11.0); MONOCYTE # 0.6 TH/MM3 (0-0.9); NEUT % 71.6 % (16.0-70.0); PLATELET COUNT 295 TH/MM3 (150-450); RED CELL DISTRIBUTION WIDTH 17.3 % (11.6-17.2); WHITE BLOOD COUNT 10.2 TH/MM3 (4.0-11.0)
[2017-07-23 07:17] LABS: BICARBONATE 27.8 MEQ/L (21.0-32.0); CALCIUM 8.9 MG/DL (8.5-10.1); CREATININE 0.57 MG/DL (0.50-1.00)
[2017-07-23 08:20] LABS: BANDS 7 % (0-6); BASOPHILS 2 % (0-2); LYMPHOCYTES 12 % (9-44); METAMYELOCYTES 2 % (0-1); MONOCYTES 5 % (0-8); MYELOCYTES 1 % (0-0); NEUTROPHIL # MANUAL DIFF 8.2 TH/MM3 (1.8-7.7); POLYS (SEG NEUTROPHILS) 70 % (16-70)
[2017-07-23] MEDS: INSULIN DETEMIR 100 UNITS/ML VIAL SQ SCH (09:00)
[2017-07-23] MEDS: DOCUSATE SODIUM 100 MG/10 ML UDC PO SCH ×2 (09:00→21:00)
[2017-07-23] MEDS: POLYETHYLENE GLYCOL 17 GM PKG PEG SCH (09:00)
[2017-07-23] MEDS: ASPIRIN 325 MG TAB DOBHOFF SCH (09:29)
[2017-07-23] MEDS: LISINOPRIL 10 MG TAB PO SCH (09:29)
[2017-07-23] MEDS: LANSOPRAZOLE SOLUTAB 30 MG TAB NG SCH (09:29)
[2017-07-23] MEDS: CHOLECALCIFEROL (VIT D3) 5000 UNIT CAP PO SCH (09:29)
[2017-07-23] MEDS: CALCIUM/VITAMIN D 250 MG/125 U TAB PO SCH ×3 (09:30→17:49)
[2017-07-23] MEDS: AZITHROMYCIN INJ 500 MG in SODIUM CHLOR 0.9% 250 ML INJ 250 ML IV SCH (10:59)
--- NOTE | 2017-07-23 11:25 | HHI.FPPN ---
Subjective Remarks Patient seen and examined at bedside. No acute events overnight. Patient asleep when we went to examine her. No change from previous baseline. (Chito Damon MD, R1) Objective Vitals Vital Signs Date Time Temp Pulse Resp B/P (MAP) Pulse Ox O2 Delivery O2 Flow Rate FiO2 07/23/17 09:25 97 T-piece 6.00 50 07/23/17 09:24 97 T-piece 6.00 50 07/23/17 04:46 100 T-piece 7.00 50 07/23/17 04:46 100 T-piece 7.00 50 07/23/17 04:26 95.4 92 20 132/62 (85) 99 07/23/17 00:44 96.8 98 21 114/58 (76) 99 07/22/17 21:52 98 T-Piece 6.00 50 Humidified 07/22/17 20:32 100 T-piece 50 07/22/17 20:21 95.8 95 16 129/59 (82) 98 07/22/17 16:00 98.7 85 18 124/60 (81) 95 07/22/17 12:00 98.1 81 18 118/58 (78) 94 I/O 07/22/17 07/22/17 07/22/17 07/23/17 07/23/17 07/23/17 07:00 15:00 23:00 07:00 15:00 23:00 Intake Total 607 ml 615 ml 83 ml 458 ml Output Total 1700 ml 750 ml 1500 ml Balance -1093 ml 615 ml -667 ml -1042 ml Intake Oral 0 ml IV Total 100 ml 350 ml 200 ml Tube Feeding 507 ml 205 ml 83 ml 258 ml Tube Irrigant 60 ml Output Urine Total 1700 ml 750 ml 1500 ml # Bowel Movements 2 2 3 (Chito Damon MD, R1) Result Diagram: 07/23/17 0600 07/23/17 0600 Objective Remarks CONSTITUTIONAL/GEN: sleeping in bed with tracheostomy and PEG tubes in place with head turned to left, she does open her eyes but cannot follow any commands. HEAD: Normocephalic. Atraumatic. Right side facial droop. LUNGS: CTA BL. Breathing spontaneously via T-tube. CARDIOVASCULAR: Regular rate and rhythm. GI/ABD: Soft, non-distended. No grimacing with palpation.Feeding tube insertion point with no redness, no distention NEURO: Eyes open, occasionally tracks; Flaccid paralysis on the right side. MUSC: SCDs on bilateral lower extremities. Pedal pulses present. SKIN: Sacral pressure ulcer extends from anus to coccyx. Procedures ORIF 04/21/17 Intubation 04/30/17 (Chito Damon MD, R1) A/P Assessment and Plan 76 y/o female with HTN, DM admitted for DKA and hip fracture s/p large CVA after ORIF she is currently stable with her current treatment but has had no meaningful functional recovery and do not anticipate any further neurologic recovery from here on. (Chito Damon MD, R1) Attending Attestation Patient seen and examined. Case reviewed and discussed with the resident team. Agree with plan of care as discussed with me and documented in the resident note. (Mei Harper MD) Problem List: (1) Chronic respiratory failure ICD Codes: J96.10 - Chronic respiratory failure, unspecified whether with hypoxia or hypercapnia Plan: At this point, respiratory failure is chronic. It is unlikely she will ever be able to be without oxygen through her T-tube Patient with increased O2 requirement and worsened left sided infiltrate on CXR on 07/21 Infiltrate likely due to mucus plug causing complete atelectasis of L lung, but with chronic hospitalization could easily be HAP leukocytosis resolved, WBC 10.2 - sputum culture from suctioning of T-tube positive for gram negative siomara - c/w Zosyn and azithromycin - blood cx from 07/21 no growth 2 days - legionella urine antigen negative - f/u urine S pneumonia antigen -ID consulted, recommendations appreciated -f/u repeat CXR to monitor improvement Infection History MSSA bacteremia Serratia/staph aureus pneumonia C glabrata UTI Citrobacter UTI Serratia/MSSA sputum VAP Antibiotic History Cefazolin: 04/21-04/22, 05/15-05/16 Cefepime: 04/30-05/04, 05/27-06/03 Ceftrioxone 05/26-05/27 Erythromycin 06/16-06/18, 06/19 Gentamicin 04/21 vancomycin 04/30-05/04, 06/21-06/23 Zosyn 07/21 - present Azithromycin 07/21 - present (2) Acute CVA (cerebrovascular accident) ICD Codes: I63.9 - Cerebral infarction, unspecified Status: Chronic Plan: Neurologically stable, no improvement. Overall prognosis is poor. Persistent oxygen requirement Resident team spoke with daughter on 07/19 and family still is looking for improvement and wish to remain full code and decline Hospice/Palliative care. Case management consult obtained for Medicaid edibility. Patient needs [facility] care facility for placement. -Titrate oxygen via trach to maintain O2 saturation above 92% -Continue tube fees at 45ml/hr 24 hours per day thru peg Tube -Neurosurgery, neurology and palliative care have all been consulted in the past and agree with very poor prognosis with no meaningful neurologic recovery. History and imaging: Patient found minimally responsive with neurological deficits around 0820 04/24. Stat CT of head was ordered, which showed large left MCA infarct. Diffuse edema throughout the left MCA distribution, suggested completed infarct. This was discussed and was not a candidate for intracranial intervention. CT (04/30): Reduction in midline shift to 11mm. Unchanged large left MCA infarction. CT head (05/06) shows: Evolving large left-sided MCA territory infarct with minimally improved [id number] subfalcine shift. No intercurrent hemorrhage or other acute abnormality. Echocardiogram- The left ventricular systolic function is low normal with an estimated ejection fraction in the range of 50-55%. Mild concentric left ventricular hypertrophy. Normal left ventricular size. [id number] mitral valve regurgitation. Carotid Artery US- No hemodynamically significant carotid stenosis (3) UTI (urinary tract infection) ICD Codes: N39.0 - Urinary tract infection, site not specified Status: Acute Plan: UCx on 07/15 positive for E coli Repeat UCx on 07/20 positive for C. Freundii - Continue zosyn - Consider repeat UCx, ensure specimen obtained from newly catheterized urine, not standing Leavitt bag History: - UTI (05/26) Ucx: Citrobacter freundii - ABx: s/p Cefepime x 7 days (4) Sacral decubitus ulcer ICD Codes: L89.159 - Pressure ulcer of sacral region, unspecified stage Status: Chronic Plan: Patient with Stage IV pressure injury over the coccyx -Wound care consult appreciated: 1. Please cleanse coccyx wound every 3 days and PRN for soiling. 2. Apply Calcium Alginate to open wound bed. 3. Secure with bordered gauze every 3 days and PRN for soiling. 4. Continue to turn patient every 2 hours or PRN for comfort. 5. Use one ultrasorb for moisture. Please use flat sheet for repositioning. (5) Anemia ICD Codes: D64.9 - Anemia, unspecified Status: Chronic Plan: s/p 1u of PRBC on 05/28/17. Hgb stable Hemoccult negative on 05/29 - monitor H&H periodically (6) Urinary retention ICD Codes: R33.9 - Retention of urine, unspecified Status: Chronic Plan: - Leavitt cath done because patient was retaining urine with intermittent cath's - Cath last changed 07/15, pt afebrile -Urine output WNL (7) Type 2 diabetes mellitus ICD Codes: E11.9 - Type 2 diabetes mellitus without complications Status: Chronic Plan: BSG 24 hr range 74-126 -Decreased Levemir to 15 units q 12 due to BG range below goal. -Will continue to monitor -BS goal 140-180 -Discontinued SSI on 07/16 -AccuCheks QShift -Glucerna for PEG tube feedings @ 45 ml/hr -Glucagon 1 mg per PRN protocol for hypoglycemia BS <70mg/dL History Admitted for DKA which has now resolved. Hemoglobin A1C is 12.9. Diabetes Type II is uncontrolled. (8) Hip fracture ICD Codes: S72.009A - Fracture of unspecified part of neck of unspecified femur , initial encounter for closed fracture Status: Resolved Plan: S/P left hip reduction and intramedullary nail fixation on 04-21-17 -c/w Calcium/Vitamin D (9) Hypertension ICD Codes: I10 - Essential (primary) hypertension Status: Chronic Plan: -Antihypertensives to keep SBP<160, as per critical care recs -c/w clonidine 0.1mg Q6h PRN SBP >160 -c/w lisinopril 20mg Q12h po Echocardiogram 04/24 - EF 50 to 55%. Mild concentric LVH. (10) Fluids, Electrolytes, and Nutrition Status: Acute Plan: Fluids: through PEG tube Electrolyte: on electrolyte protocol Nutrition: continuous Glucerna tube feeds and free water, pump at 45mls/hr, tolerating feeds well, no residual. Protein 1 pack TID. Supplements: calcium TID and vit D3 QD DVT ppx: SCDs/heparin CVA ppx: aspirin 325 mg QD GI ppx: Lansoprazole 30mg qd via NG Colace, dulcolax PRN (Chito Damon MD, R1) Problem Qualifiers (1) Chronic respiratory failure: Qualified Codes: J96.11 - Chronic respiratory failure with hypoxia (2) UTI (urinary tract infection): Qualified Codes: N39.0 - Urinary tract infection, site not specified (3) Sacral decubitus ulcer: Qualified Codes: L89.154 - Pressure ulcer of sacral region, stage 4 (4) Type 2 diabetes mellitus: Qualified Codes: E11.9 - Type 2 diabetes mellitus without complications (5) Hip fracture: (6) Hypertension: Qualified Codes: I10 - Essential (primary) hypertension Chito Damon MD, R1 Jul 23, 2017 11:25 Mei Harper MD Jul 23, 2017 14:09
--- NOTE | 2017-07-23 13:40 | RADRPT ---
EXAM DATE/TIME: 07/23/2017 13:08 [facility] COMPARISON: CHEST SINGLE AP, July 21, 2017, 4:15. INDICATIONS : Short of breath. Pneumonia per order. MEDICAL HISTORY : Cerebrovascular disease. Hypertension. SURGICAL HISTORY : None. ENCOUNTER: Subsequent ACUITY: 3 days PAIN SCORE: Non-responsive. LOCATION: Bilateral chest FINDINGS: A single view of the chest demonstrates again diffuse infiltrate throughout the lungs with marked imp rovement in the aeration of the left chest since the . The left apex is not aerated, previously w as completely obscured. Tracheostomy tube is in good position. No central line is noted. CONCLUSION: A tracheostomy tube in good position. Diffuse interstitial congestion and diffuse infiltrates with m arked improvement particularly on the left since the . Elliott Castellon MD on July 23, 2017 at 13:37 Board Certified Radiologist. This report was verified electronically.
--- NOTE | 2017-07-23 15:27 | HHI.FPPN ---
Addendum to progress note ADDENDUM Reason for addendum: Additonal documentation Additional information Dr. Harper and myself met with Ramses (from case management) and 's daughter Trice at bedside to discuss patient's goals of care. It was explained to daughter that patient still has poor prognosis, currently being sustained by trach on FIO2 of 40% and PEG tube feeds and that medically we do not anticipate significant neurological recovery from her baseline. It was also explained to daughter that we are currently treating her with antibiotics for pneumonia and uti. We anticipate recurrent infections as she remains hospitalized given her condition. Patient does not qualify for medicaid and thus not eligible for funding for a remote computer terminal operator care facility. The other option to consider is for her to financially cover her mother's remote computer terminal operator care either at her home or at a facility. Trice was advised to consider what would be her mother's wishes for end of life care continual hospitalization, long care health facility or hospice care. Chito Damon MD, R1 Jul 23, 2017 15:27
[2017-07-23] MEDS: BENEPROTEIN POWDER 1 PACK G-TUBE SCH ×3 (16:06→17:50)
[2017-07-23] MEDS: SODIUM CHLORIDE 0.9% FLUSH 5 ML FLUSH IV FLUSH SCH (17:50)
[2017-07-24] VITALS (9 sets, daily range): BP systolic 129–169; BP diastolic 60–82; PULSE 84–101; RESP 18–20; TEMP 96.5–99; O2SAT 93–97
[2017-07-24] MEDS: LISINOPRIL 10 MG TAB PO SCH ×3 (00:15→20:51)
[2017-07-24] MEDS: PIPERACIL-TAZO 4.5 GM PREMIX 100 ML IV SCH ×5 (00:16→21:13)
[2017-07-24] MEDS: SODIUM CHLORIDE 0.9% FLUSH 5 ML FLUSH IV FLUSH SCH ×3 (00:16→20:53)
[2017-07-24] MEDS: HEPARIN SODIUM - SQ 10,000 UNITS/ML VIAL SQ SCH ×4 (00:17→20:51)
[2017-07-24] MEDS: ARTIFICIAL TEARS OPTH SOLN 15 ML BTL EACH EYE SCH ×4 (00:17→20:53)
[2017-07-24] MEDS: INSULIN DETEMIR 100 UNITS/ML VIAL SQ SCH ×3 (00:26→21:12)
[2017-07-24] MEDS: INSULIN ASPART SUPPLEMENTAL SCALE SQ SCH ×4 (00:27→18:00)
[2017-07-24 02:29] LABS: BACTERIA, URINE RARE /hpf; BILIRUBIN, URINE NEG (NEG); BLOOD, URINE MOD (NEG); GLUCOSE,URINE NEG (NEG); HYALINE CAST, URINE 1 /lpf (RARE); KETONE, URINE NEG (NEG); MUCUS URINE FEW /lpf (OCC); NITRITE,URINE NEG (NEG); PH, URINE 7.5 (5.0-8.5); SQUAMOUS EPITHELIAL CELL URINE <1 /hpf (0-5); URINE COLOR YELLOW (YELLW/STRAW); URINE LEUKOCYTE ESTERASE LARGE (NEG); WHITE BLOOD CELL CLUMPS FEW
[2017-07-24] MEDS: RESP: ALBUTEROL 2.5 MG/IPRATROPIUM 0.5 MG NEB (SCH) NEB ×4 (04:48→21:00)
--- NOTE | 2017-07-24 07:15 | HHI.FPPN ---
Subjective Remarks No overnight events reported. Patient does open eyes but no responsiveness to me. No purposeful movements Objective Vitals Vital Signs Date Time Temp Pulse Resp B/P (MAP) Pulse Ox O2 Delivery O2 Flow Rate FiO2 07/24/17 04:54 97 T-piece 6.00 35 07/24/17 04:33 97.7 84 20 138/68 (91) 96 07/24/17 00:32 96.9 93 18 144/67 (92) 95 07/23/17 21:22 97 T-piece 6.00 35 07/23/17 20:22 97.3 95 17 149/70 (96) 95 07/23/17 16:00 97.7 90 18 149/72 (97) 98 07/23/17 12:00 98.1 96 20 124/84 (97) 97 07/23/17 09:25 97 T-piece 6.00 50 07/23/17 09:24 97 T-piece 6.00 50 07/23/17 08:00 98 T-Piece 6.00 50 Humidified 07/23/17 08:00 97.8 87 18 122/63 (82) 99 I/O 07/23/17 07/23/17 07/23/17 07/24/17 07/24/17 07/24/17 07:00 15:00 23:00 07:00 15:00 23:00 Intake Total 458 ml 350 ml 1200 ml 580 ml Output Total 1500 ml 650 ml 1300 ml Balance -1042 ml 350 ml 550 ml -720 ml IV Total 200 ml 350 ml 100 ml 100 ml Tube Feeding 258 ml 790 ml 230 ml Tube Irrigant 60 ml Other 250 ml 250 ml Output Urine Total 1500 ml 650 ml 1300 ml # Bowel Movements 3 4 2 Result Diagram: 07/23/17 0607/23/17 06 Other Results GEN: opens eyes, does not track, no purposefull movements, does not follow commands, T-tube in place on 6L FiO2 35, Peg in place and running, area around PEG insertion clean CARDS: regular, no Murmurs PULM: course breath sounds anteriorly throughout but moving air on both sides, no wheezing, no rales ABD: soft, nondistended, good bowel sounds throughout EXT: right arm and leg flaccid, spontaneously movements of the left arm, pulses faint but present PT and DP bilateral NEURO: right side paralysis, no meaningful or purposeful responsiveness Imaging Last Impressions Chest X-Ray 07/23/17 0000 Signed Impressions: Service Date/Time: Sunday, July 23, 2017 13:08 - CONCLUSION: A tracheostomy tube in good position. Diffuse interstitial congestion and diffuse infiltrates with marked improvement particularly on the left since the . Elliott Castellon MD Hip and Pelvis X-Ray 07/09/17 0000 Signed Impressions: Service Date/Time: Sunday, July 09, 2017 14:04 - CONCLUSION: Anatomic alignment. Ricardo Middleton MD FACR Liver Ultrasound 06/19/17 0000 Signed Impressions: Service Date/Time: June 13:20 - CONCLUSION: 1. Mildly increased echotexture of the liver characteristic of hepatic steatosis. 2. Gallbladder sludge. Obdulio Sam MD Abdomen X-Ray 06/16/17 0000 Signed Impressions: Service Date/Time: Friday, June 16, 2017 04:48 - CONCLUSION: 1. Continued small bowel ileus. There has been no significant change when compared to the prior exam. Toy Duran MD Head CT 05/15/17 0000 Signed Impressions: Service Date/Time: May 19:59 - CONCLUSION: 1. 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 2. No bleed or new/acute infarct. Obdulio Simms MD Gall Bladder Ultrasound 05/08/17 0000 Signed Impressions: Service Date/Time: May 08:23 - CONCLUSION: Focally unremarkable appearance of the gallbladder Obdulio Chun MD Abdomen/Pelvis CT 05/07/17 0000 Signed Impressions: Service Date/Time: Sunday, May 07, 2017 13:23 - CONCLUSION: 1. Large left pneumothorax. 2. Bilateral lower lobe consolidation and bilateral moderate size pleural effusions. 3. Significant soft tissue thickening of the right lateral chest wall and left gluteus muscle. 4. Mild ascites. The findings were called to Dr. Carney. Deangelo Zamora MD Chest CT 04/30/17 0000 Signed Impressions: Service Date/Time: Sunday, April 30, 2017 09:20 - CONCLUSION: 1. Bilateral pulmonary infiltrates more pronounced within the lower lobes with tiny bilateral pleural effusions. Material seen filling the lower lobe bronchi bilaterally either related to purulent material or perhaps mucus plugging. Deangelo Wren Jr., MD Carotid Artery Ultrasound 04/24/17 0000 Signed Impressions: Service Date/Time: April 09:45 - CONCLUSION: 1. No hemodynamically significant carotid artery stenosis. Arnie Middleton MD Hip X-Ray 04/21/17 0000 Signed Impressions: Service Date/Time: Friday, April 21, 2017 11:36 - CONCLUSION: Fluoroscopic images during placement of intramedullary siomara left femur. Benja Ramsey MD Objective Remarks CONSTITUTIONAL/GEN: sleeping in bed with tracheostomy and PEG tubes in place with head turned to left, she does open her eyes but cannot follow any commands. HEAD: Normocephalic. Atraumatic. Right side facial droop. LUNGS: CTA BL. Breathing spontaneously via T-tube. CARDIOVASCULAR: Regular rate and rhythm. GI/ABD: Soft, non-distended. No grimacing with palpation.Feeding tube insertion point with no redness, no distention NEURO: Eyes open, occasionally tracks; Flaccid paralysis on the right side. MUSC: SCDs on bilateral lower extremities. Pedal pulses present. SKIN: Sacral pressure ulcer extends from anus to coccyx. Procedures ORIF 04/21/17 Intubation 04/30/17 A/P Assessment and Plan 76 y/o female with HTN, DM admitted for DKA and hip fracture s/p large CVA after ORIF she is currently stable with her current treatment but has had no meaningful functional recovery and do not anticipate any further neurologic recovery from here on. Had long discussion with the daughter and case management and Dr. Damon yesterday afternoon and the patients daughter is still hopeful for full recovery for her mom in spite of her mom's state of health since her CVA. DW the daughter that it is our belief based on her clinical picture that she will not make any sort of meaningful recovery and will remain on the trach and PEG for the rest of her life. DW the daughter due to her status that the patient will likely continue to decline and continue to acquire infections associated with this type of clinical picture including UTI, PNA, and sepsis. DW the daughter to consider the QOL that her mother would have wanted. I recommend that this patient receive Hospice services as I would not anticipate her living longer than 6 months. The daughter does not want to consider this at this time and she is the sole decision maker for this patient. In that case, we will continue to treat the patient aggressively as issues arise and honor the families wishes. Problem List: (1) Chronic respiratory failure ICD Codes: J96.10 - Chronic respiratory failure, unspecified whether with hypoxia or hypercapnia Plan: At this point, respiratory failure is chronic on T-tube Hospital Acquired PNA on 07/21 -- repeat CXR on 03/22 does show improvement. sputum culture positive for gram negative siomara, blood cultures so far negative. - c/w Zosyn and azithromycin - blood cx from 07/21 no growth 2 days - continue to follow - legionella urine antigen negative - f/u urine S pneumonia antigen -ID consulted, recommendations appreciated Infection History MSSA bacteremia Serratia/staph aureus pneumonia C glabrata UTI Citrobacter UTI Serratia/MSSA sputum VAP Antibiotic History Cefazolin: 04/21-04/22, 05/15-05/16 Cefepime: 04/30-05/04, 05/27-06/03 Ceftrioxone 05/26-05/27 Erythromycin 06/16-06/18, 06/19 Gentamicin 04/21 vancomycin 04/30-05/04, 06/21-06/23 Zosyn 07/21 - present Azithromycin 07/21 - present (2) Acute CVA (cerebrovascular accident) ICD Codes: I63.9 - Cerebral infarction, unspecified Status: Chronic Plan: Neurologically stable, no improvement. Overall prognosis is poor. Persistent oxygen requirement See above note about meeting with Daughter on 07/23. Daughter still desires full code and aggressive care -Titrate oxygen via trach to maintain O2 saturation above 92% -Continue tube fees at 45ml/hr 24 hours per day thru peg Tube -Neurosurgery, neurology and palliative care have all been consulted in the past and agree with very poor prognosis with no meaningful neurologic recovery. History and imaging: Patient found minimally responsive with neurological deficits around 0820 04/24. Stat CT of head was ordered, which showed large left MCA infarct. Diffuse edema throughout the left MCA distribution, suggested completed infarct. This was discussed and was not a candidate for intracranial intervention. CT (04/30): Reduction in midline shift to 11mm. Unchanged large left MCA infarction. CT head (05/06) shows: Evolving large left-sided MCA territory infarct with minimally improved [id number]-lg-ikisl subfalcine shift. No intercurrent hemorrhage or other acute abnormality. Echocardiogram- The left ventricular systolic function is low normal with an estimated ejection fraction in the range of 50-55%. Mild concentric left ventricular hypertrophy. Normal left ventricular size. Wnhto-lg-uisr mitral valve regurgitation. Carotid Artery US- No hemodynamically significant carotid stenosis (3) UTI (urinary tract infection) ICD Codes: N39.0 - Urinary tract infection, site not specified Status: Acute Plan: UCx on 07/15 positive for E coli Repeat UCx on 07/20 positive for C. Freundii - Continue zosyn - Repeat UCx pending History: - UTI (05/26) Ucx: Citrobacter freundii - ABx: s/p Cefepime x 7 days (4) Sacral decubitus ulcer ICD Codes: L89.159 - Pressure ulcer of sacral region, unspecified stage Status: Chronic Plan: Patient with Stage IV pressure injury over the coccyx -Wound care consult appreciated: 1. Please cleanse coccyx wound every 3 days and PRN for soiling. 2. Apply Calcium Alginate to open wound bed. 3. Secure with bordered gauze every 3 days and PRN for soiling. 4. Continue to turn patient every 2 hours or PRN for comfort. 5. Use one ultrasorb for moisture. Please use flat sheet for repositioning. (5) Anemia ICD Codes: D64.9 - Anemia, unspecified Status: Chronic Plan: s/p 1u of PRBC on 05/28/17. Hgb stable Hemoccult negative on 05/29 - monitor H&H periodically (6) Urinary retention ICD Codes: R33.9 - Retention of urine, unspecified Status: Chronic Plan: - Leavitt cath done because patient was retaining urine with intermittent cath's - Cath last changed 07/15, pt afebrile -Urine output WNL (7) Type 2 diabetes mellitus ICD Codes: E11.9 - Type 2 diabetes mellitus without complications Status: Chronic Plan: BSG 24 hr range 74-126 -Decreased Levemir to 15 units q 12 due to BG range below goal. -Will continue to monitor -BS goal 140-180 -Discontinued SSI on 07/16 -AccuCheks QShift -Glucerna for PEG tube feedings @ 45 ml/hr -Glucagon 1 mg per PRN protocol for hypoglycemia BS <70mg/dL History Admitted for DKA which has now resolved. Hemoglobin A1C is 12.9. Diabetes Type II is uncontrolled. (8) Hip fracture ICD Codes: S72.009A - Fracture of unspecified part of neck of unspecified femur , initial encounter for closed fracture Status: Resolved Plan: S/P left hip reduction and intramedullary nail fixation on 04-21-17 -c/w Calcium/Vitamin D (9) Hypertension ICD Codes: I10 - Essential (primary) hypertension Status: Chronic Plan: -Antihypertensives to keep SBP<160, as per critical care recs -c/w clonidine 0.1mg Q6h PRN SBP >160 -c/w lisinopril 20mg Q12h po Echocardiogram 04/24 - EF 50 to 55%. Mild concentric LVH. (10) Fluids, Electrolytes, and Nutrition Status: Acute Plan: Fluids: through PEG tube Electrolyte: on electrolyte protocol Nutrition: continuous Glucerna tube feeds and free water, pump at 45mls/hr, tolerating feeds well, no residual. Protein 1 pack TID. Supplements: calcium TID and vit D3 QD DVT ppx: SCDs/heparin CVA ppx: aspirin 325 mg QD GI ppx: Lansoprazole 30mg qd via NG Colace, dulcolax PRN Problem Qualifiers (1) Chronic respiratory failure: Qualified Codes: J96.11 - Chronic respiratory failure with hypoxia (2) UTI (urinary tract infection): Qualified Codes: N39.0 - Urinary tract infection, site not specified (3) Sacral decubitus ulcer: Qualified Codes: L89.154 - Pressure ulcer of sacral region, stage 4 (4) Type 2 diabetes mellitus: Qualified Codes: E11.9 - Type 2 diabetes mellitus without complications (5) Hip fracture: (6) Hypertension: Qualified Codes: I10 - Essential (primary) hypertension Mei Harper MD Jul 24, 2017 07:15
[2017-07-24] MEDS: POLYETHYLENE GLYCOL 17 GM PKG PEG SCH (07:51)
[2017-07-24] MEDS: DOCUSATE SODIUM 100 MG/10 ML UDC PO SCH ×2 (07:52→20:51)
[2017-07-24] MEDS: BENEPROTEIN POWDER 1 PACK G-TUBE SCH ×3 (09:00→18:00)
[2017-07-24] MEDS: CHOLECALCIFEROL (VIT D3) 5000 UNIT CAP PO SCH (09:48)
[2017-07-24] MEDS: CALCIUM/VITAMIN D 250 MG/125 U TAB PO SCH ×3 (09:48→19:07)
[2017-07-24] MEDS: LANSOPRAZOLE SOLUTAB 30 MG TAB NG SCH (09:48)
[2017-07-24] MEDS: ASPIRIN 325 MG TAB DOBHOFF SCH (10:03)
[2017-07-24] MEDS: AZITHROMYCIN INJ 500 MG in SODIUM CHLOR 0.9% 250 ML INJ 250 ML IV SCH (12:48)
[2017-07-25] VITALS (7 sets, daily range): BP systolic 98–172; BP diastolic 5–84; PULSE 83–110; RESP 19–20; TEMP 96.5–99.5; O2SAT 95–100
[2017-07-25] MEDS: cloNIDine HCL 0.1 MG TAB PO PRN (00:21)
[2017-07-25] MEDS: INSULIN ASPART SUPPLEMENTAL SCALE SQ SCH ×4 (00:21→16:32)
[2017-07-25] MEDS: RESP: ALBUTEROL 2.5 MG/IPRATROPIUM 0.5 MG NEB (SCH) NEB ×2 (03:18→09:05)
[2017-07-25] MEDS: HEPARIN SODIUM - SQ 10,000 UNITS/ML VIAL SQ SCH ×3 (04:56→22:20)
[2017-07-25] MEDS: PIPERACIL-TAZO 4.5 GM PREMIX 100 ML IV SCH (04:56)
[2017-07-25] MEDS: ARTIFICIAL TEARS OPTH SOLN 15 ML BTL EACH EYE SCH ×3 (04:57→22:18)
[2017-07-25 05:16] LABS: AUTOMATED NEUTROPHIL # 12.2 TH/MM3 (1.8-7.7); BASOPHIL # 0.1 TH/MM3 (0-0.2); BASOPHIL % 0.9 % (0.0-2.0); EOSINOPHIL # 0.3 TH/MM3 (0-0.4); EOSINOPHIL % 1.9 % (0.0-4.0); HEMATOCRIT 27.5 % (35.0-46.0); LYMPH % 14.2 % (9.0-44.0); LYMPHOCYTE # 2.2 TH/MM3 (1.0-4.8); MEAN CELL VOLUME 97.5 FL (80.0-100.0); MEAN CORPUSCULAR HEMOGLOBIN 31.9 PG (27.0-34.0); MEAN CORPUSCULAR HGB CONC 32.7 % (32.0-36.0); MEAN PLATELET VOLUME 9.7 FL (7.0-11.0); MONO % 4.3 % (0.0-8.0); MONOCYTE # 0.7 TH/MM3 (0-0.9); NEUT % 78.7 % (16.0-70.0); PLATELET COUNT 341 TH/MM3 (150-450); RED BLOOD COUNT 2.82 MIL/MM3 (4.00-5.30); RED CELL DISTRIBUTION WIDTH 17.4 % (11.6-17.2); WHITE BLOOD COUNT 15.5 TH/MM3 (4.0-11.0)
[2017-07-25 05:39] LABS: ALBUMIN 2.3 GM/DL (3.4-5.0); AST (GOT) 47 U/L (15-37); BICARBONATE 25.1 MEQ/L (21.0-32.0); BLOOD UREA NITROGEN 32 MG/DL (7-18); CALCIUM 8.7 MG/DL (8.5-10.1); CHLORIDE 106 MEQ/L (98-107); CREATININE 0.54 MG/DL (0.50-1.00); GLOMERULAR FILTRATION RATE 110 ML/MIN (>89); GLUCOSE,RANDOM 99 MG/DL (74-106); SODIUM (NA) 139 MEQ/L (136-145)
--- NOTE | 2017-07-25 05:39 | RADRPT ---
EXAM DATE/TIME: 07/25/2017 03:08 [facility] COMPARISON: CHEST SINGLE AP, July 23, 2017, 13:08. INDICATIONS : Pneumonia. MEDICAL HISTORY : Cerebrovascular disease. Hypertension. SURGICAL HISTORY : None. ENCOUNTER: Subsequent ACUITY: 4 - 6 days PAIN SCORE: Non-responsive. LOCATION: Bilateral chest FINDINGS: A single AP semierect view of the chest was obtained and demonstrates apparent mild increase in the d iffuse alveolar opacities in both lungs. The heart size remains mildly prominent. Tracheostomy tube r emains in place. There is blunting of both costophrenic angles. Atherosclerotic changes are again not ed in the aorta. There are degenerative changes in the thoracic spine. CONCLUSION: 1. Apparent mild worsening of the diffuse alveolar opacities which may represent pulmonary edema. 2. The costophrenic angles appear mildly blunted which could indicate small effusions. Jose R Casanova MD on July 25, 2017 at 5:37 Board Certified Radiologist. This report was verified electronically.
[2017-07-25 05:42] LABS: ALKALINE PHOSPHATASE 487 U/L (45-117); ALT (GPT) 58 U/L (10-53); TOTAL BILIRUBIN ADULT 0.3 MG/DL (0.2-1.0); TOTAL PROTEIN 6.8 GM/DL (6.4-8.2)
[2017-07-25 07:38] LABS: BANDS 13 % (0-6); LYMPHOCYTES 10 % (9-44); METAMYELOCYTES 1 % (0-1); MONOCYTES 5 % (0-8); NEUTROPHIL # MANUAL DIFF 12.7 TH/MM3 (1.8-7.7); POLYS (SEG NEUTROPHILS) 68 % (16-70)
[2017-07-25] MEDS: POLYETHYLENE GLYCOL 17 GM PKG PEG SCH (07:39)
[2017-07-25] MEDS: CALCIUM/VITAMIN D 250 MG/125 U TAB PO SCH ×3 (07:39→16:32)
[2017-07-25] MEDS: LISINOPRIL 10 MG TAB PO SCH ×2 (07:39→22:18)
[2017-07-25] MEDS: ASPIRIN 325 MG TAB DOBHOFF SCH (07:39)
[2017-07-25] MEDS: DOCUSATE SODIUM 100 MG/10 ML UDC PO SCH ×2 (07:39→22:19)
[2017-07-25] MEDS: CHOLECALCIFEROL (VIT D3) 5000 UNIT CAP PO SCH (07:40)
[2017-07-25] MEDS: INSULIN DETEMIR 100 UNITS/ML VIAL SQ SCH ×3 (07:40→23:05)
[2017-07-25] MEDS: BENEPROTEIN POWDER 1 PACK G-TUBE SCH ×3 (07:40→16:35)
[2017-07-25] MEDS: LANSOPRAZOLE SOLUTAB 30 MG TAB NG SCH (07:40)
[2017-07-25] MEDS: SODIUM CHLORIDE 0.9% FLUSH 5 ML FLUSH IV FLUSH SCH ×2 (07:40→22:20)
--- NOTE | 2017-07-25 09:16 | HHI.FPPN ---
Subjective Remarks Patient seen and examined at bedside. No acute events overnight. Patient asleep when we went to examine her. (Chito Damon MD, R1) Objective Vitals Vital Signs Date Time Temp Pulse Resp B/P (MAP) Pulse Ox O2 Delivery O2 Flow Rate FiO2 07/25/17 09:06 100 T-piece 6.00 40 07/25/17 00:00 96.5 110 19 172/84 (113) 96 07/24/17 21:03 94 T-piece 35 07/24/17 21:03 94 T-piece 35 07/24/17 20:45 93 Humidified 6.00 35 07/24/17 20:00 96.5 101 19 169/82 (111) 96 07/24/17 16:00 96.9 94 18 138/72 (94) 95 07/24/17 11:33 99.0 86 19 129/60 (83) 95 07/24/17 11:16 93 T-piece 5.00 28 07/24/17 10:30 T-Piece 7.00 35 I/O 07/24/17 07/24/17 07/24/17 07/25/17 07/25/17 07/25/17 07:00 15:00 23:00 07:00 15:00 23:00 Intake Total 580 ml 100 ml 250 ml 0 ml Output Total 1300 ml 1100 ml 800 ml Balance -720 ml 100 ml -850 ml -800 ml Intake Oral 0 ml 0 ml IV Total 100 ml 100 ml 250 ml Tube Feeding 230 ml Other 250 ml Output Urine Total 1300 ml 600 ml 800 ml Stool Total 500 ml # Bowel Movements 2 2 (Chito Damon MD, R1) Result Diagram: 07/25/1740907/25/17409 Objective Remarks CONSTITUTIONAL/GEN: sleeping in bed with tracheostomy and PEG tubes in place with head turned to left, she does open her eyes but cannot follow any commands. HEAD: Normocephalic. Atraumatic. Right side facial droop. LUNGS: CTA BL. Breathing spontaneously via T-tube. CARDIOVASCULAR: Regular rate and rhythm. GI/ABD: Soft, non-distended. No grimacing with palpation. Feeding tube insertion point with no redness, no distention NEURO: Eyes open, occasionally tracks; Flaccid paralysis on the right side. MUSC: SCDs on bilateral lower extremities. Pedal pulses present. SKIN: Sacral pressure ulcer extends from anus to coccyx. Procedures ORIF 04/21/17 Intubation 04/30/17 (Chito Damon MD, R1) A/P Assessment and Plan 76 y/o female with HTN, DM admitted for DKA and hip fracture s/p large CVA after ORIF she is currently stable with her current treatment but has had no meaningful functional recovery and do not anticipate any further neurologic recovery from here on. Had long discussion with the daughter and case management and Dr. Damon on 07/23 and the patient's daughter is still hopeful for full recovery for her mom in spite of her mom's state of health since her CVA. DW the daughter that it is our belief based on her clinical picture that she will not make any sort of meaningful recovery and will remain on the trach and PEG for the rest of her life. DW the daughter due to her status that the patient will likely continue to decline and continue to acquire infections associated with this type of clinical picture including UTI, PNA, and sepsis. DW the daughter to consider the QOL that her mother would have wanted. I recommend that this patient receive Hospice services as I would not anticipate her living longer than 6 months. The daughter does not want to consider this at this time and she is the sole decision maker for this patient. In that case , we will continue to treat the patient aggressively as issues arise and honor the families wishes. (Chito Damon MD, R1) Attending Attestation Case reviewed and discussed with the resident team. Agree with plan of care as discussed with me and documented in the resident note. (Mei Harper MD) Problem List: (1) Chronic respiratory failure ICD Codes: J96.10 - Chronic respiratory failure, unspecified whether with hypoxia or hypercapnia Plan: At this point, respiratory failure is chronic on T-tube Hospital Acquired PNA on 07/21 -- repeat CXR on 03/22 does show improvement. sputum culture positive for Multi drug resistant pseudomonas, blood cultures so far negative. - c/w azithromycin - blood cx from 07/21 no growth 3 days - continue to follow - legionella and S pneumonia urine antigen negative -ID following, recommendations appreciated -ceftolozane/ tazobactam started today -Zosyn discontinued today -Pulmonology consulted by ID Infection History MSSA bacteremia Serratia/staph aureus pneumonia C glabrata UTI Citrobacter UTI Serratia/MSSA sputum VAP Antibiotic History Cefazolin: 04/21-04/22, 05/15-05/16 Cefepime: 04/30-05/04, 05/27-06/03 Ceftrioxone 05/26-05/27 Erythromycin 06/16-06/18, 06/19 Gentamicin 04/21 vancomycin 04/30-05/04, 06/21-06/23 Zosyn 07/21 - 07/25 Azithromycin 07/21 - present ceftolozane/ tazobactam 07/25- (2) Acute CVA (cerebrovascular accident) ICD Codes: I63.9 - Cerebral infarction, unspecified Status: Chronic Plan: Neurologically stable, no improvement. Overall prognosis is poor. Persistent oxygen requirement See above note about meeting with Daughter on 07/23. Daughter still desires full code and aggressive care -Titrate oxygen via trach to maintain O2 saturation above 92% -Continue tube fees at 45ml/hr 24 hours per day thru peg Tube -Neurosurgery, neurology and palliative care have all been consulted in the past and agree with very poor prognosis with no meaningful neurologic recovery. History and imaging: Patient found minimally responsive with neurological deficits around 0820 04/24. Stat CT of head was ordered, which showed large left MCA infarct. Diffuse edema throughout the left MCA distribution, suggested completed infarct. This was discussed and was not a candidate for intracranial intervention. CT (04/30): Reduction in midline shift to 11mm. Unchanged large left MCA infarction. CT head (05/06) shows: Evolving large left-sided MCA territory infarct with minimally improved [id number] subfalcine shift. No intercurrent hemorrhage or other acute abnormality. Echocardiogram- The left ventricular systolic function is low normal with an estimated ejection fraction in the range of 50-55%. Mild concentric left ventricular hypertrophy. Normal left ventricular size. Pinhy-ck-yghh mitral valve regurgitation. Carotid Artery US- No hemodynamically significant carotid stenosis (3) UTI (urinary tract infection) ICD Codes: N39.0 - Urinary tract infection, site not specified Status: Acute Plan: UCx on 07/15 positive for E coli Repeat UCx on 07/20 positive for C. Freundii -see above for abx coverage - Repeat UCx pending History: - UTI (05/26) Ucx: Citrobacter freundii - ABx: s/p Cefepime x 7 days (4) Sacral decubitus ulcer ICD Codes: L89.159 - Pressure ulcer of sacral region, unspecified stage Status: Chronic Plan: Patient with Stage IV pressure injury over the coccyx -Wound care consult appreciated: 1. Please cleanse coccyx wound every 3 days and PRN for soiling. 2. Apply Calcium Alginate to open wound bed. 3. Secure with bordered gauze every 3 days and PRN for soiling. 4. Continue to turn patient every 2 hours or PRN for comfort. 5. Use one ultrasorb for moisture. Please use flat sheet for repositioning. (5) Anemia ICD Codes: D64.9 - Anemia, unspecified Status: Chronic Plan: s/p 1u of PRBC on 05/28/17. Hgb stable Hemoccult negative on 05/29 - monitor H&H periodically (6) Urinary retention ICD Codes: R33.9 - Retention of urine, unspecified Status: Chronic Plan: - Leavitt cath done because patient was retaining urine with intermittent cath's - Cath last changed 07/15, pt afebrile -Urine output WNL (7) Type 2 diabetes mellitus ICD Codes: E11.9 - Type 2 diabetes mellitus without complications Status: Chronic Plan: - continue to monitor BSG -Decreased Levemir to 15 units q 12 due to BG range below goal. -Will continue to monitor -BS goal 140-180 -Discontinued SSI on 07/16 -AccuCheks QShift -Glucerna for PEG tube feedings @ 45 ml/hr -Glucagon 1 mg per PRN protocol for hypoglycemia BS <70mg/dL History Admitted for DKA which has now resolved. Hemoglobin A1C is 12.9. Diabetes Type II is uncontrolled. (8) Hip fracture ICD Codes: S72.009A - Fracture of unspecified part of neck of unspecified femur , initial encounter for closed fracture Status: Resolved Plan: S/P left hip reduction and intramedullary nail fixation on 04-21-17 -c/w Calcium/Vitamin D (9) Hypertension ICD Codes: I10 - Essential (primary) hypertension Status: Chronic Plan: -Antihypertensives to keep SBP<160, as per critical care recs -c/w clonidine 0.1mg Q6h PRN SBP >160 -c/w lisinopril 20mg Q12h po Echocardiogram 04/24 - EF 50 to 55%. Mild concentric LVH. (10) Fluids, Electrolytes, and Nutrition Status: Acute Plan: Fluids: through PEG tube Electrolyte: on electrolyte protocol Nutrition: continuous Glucerna tube feeds and free water, pump at 45mls/hr, tolerating feeds well, no residual. Protein 1 pack TID. Supplements: calcium TID and vit D3 QD DVT ppx: SCDs/heparin CVA ppx: aspirin 325 mg QD GI ppx: Lansoprazole 30mg qd via NG Colace, dulcolax PRN (Chito Damon MD, R1) Problem Qualifiers (1) Chronic respiratory failure: Qualified Codes: J96.11 - Chronic respiratory failure with hypoxia (2) UTI (urinary tract infection): Qualified Codes: N39.0 - Urinary tract infection, site not specified (3) Sacral decubitus ulcer: Qualified Codes: L89.154 - Pressure ulcer of sacral region, stage 4 (4) Type 2 diabetes mellitus: Qualified Codes: E11.9 - Type 2 diabetes mellitus without complications (5) Hip fracture: (6) Hypertension: Qualified Codes: I10 - Essential (primary) hypertension Chito Damon MD, R1 Jul 25, 2017 09:16 Mei Harper MD Jul 26, 2017 07:46
[2017-07-25] MEDS: CEFTOLOZANE-TAZOBACTAM INJ 1,500 MG in SODIUM CHLORIDE 0.9% INJ 100 ML IV SCH ×2 (09:47→16:33)
[2017-07-25] MEDS: AZITHROMYCIN INJ 500 MG in SODIUM CHLOR 0.9% 250 ML INJ 250 ML IV SCH (10:58)
--- NOTE | 2017-07-25 13:36 | HHI.IDPN ---
Subjective Subjective Remarks is a 76 y/o CF with PMHx of stroke, diabetes mellitus who was admitted with DKA and a hip fracture for which she underwent ORIF on 04/21. While in hospital recovering, patient developed altered mental status. Due to worsening mental status a stroke alert was called. Head CT showed large left MCA territory ischemic infarct with edema. Patient was transferred to the ICU by family medicine service and critical care consult was requested. At the time of evaluation in [facility], patient was opening her eyes however not following commands and had a dense right hemiplegia. Patient was also evaluated by Dr. Malave from neurology. At baseline, the patient lives with her daughter since her stroke in 2014 and does ambulate however has been having problems with memory and incontinence as well as gait difficulties. She does not feel patient would want intubation or tracheostomy or PEG tube. On 05/01/17 patient was intubated for severe hypoxemic respiratory failure from aspiration pneumonia. She also had a temp of 101 F. Blood culture and sputum culture with staph aureus sputum also growing GNR, WBC count 22,000 now indicating worsening sepsis. 05/06/[address] head with massive left MCA infarction and > 1 cm shift in right handed woman. Meanwhile patient is also being treated for C.glabrata UTI. At the time of my evaluation, patient is in [facility] on ventilator. She spontaneously opens eyes, did not follow commands for me. She underwent a CT A/ P which shows a left side pneumothorax. is placing a pigtail chest tube. She has a moser in place but no central line. ID is consulted for evaluation and Mment of Sepsis, MSSA and aspiration pneumonia, C.glabrata UTI. Overnight events reviewed with RN. No fevers Secretions biggs small to moderate. PEG tube and trach site ok. Sitting in chair on T piece/. Does not track or follow commands. Sitting in a chair, opens eyes but no meaningful interaction. UO ok. Antibiotics Zosyn IV Lines Line sites with no e.o infection. Past Medical History reviewed Allergies: Coded Allergies: No Known Allergies (Unverified , 04/20/17) Objective . Vital Signs Date Time Temp Pulse Resp B/P (MAP) Pulse Ox O2 Delivery O2 Flow Rate FiO2 07/25/17 11:33 97.3 86 20 125/58 (80) 97 07/25/17 09:06 100 T-piece 6.00 40 07/25/17 08:00 99.5 87 20 98/5 (36) 95 07/25/17 07:40 95 Trach Collar 6.00 35 Humidified 07/25/17 00:00 96.5 110 19 172/84 (113) 96 07/24/17 21:03 94 T-piece 35 07/24/17 21:03 94 T-piece 35 07/24/17 20:45 93 Humidified 6.00 35 07/24/17 20:00 96.5 101 19 169/82 (111) 96 07/24/17 16:00 96.9 94 18 138/72 (94) 95 07/25/17 07/25/17 07/26/17 15:00 23:00 07:00 Intake Total 100 ml Balance 100 ml IV Total 100 ml . Laboratory Tests Test 07/25/17 04:10 White Blood Count 15.5 TH/MM3 Red Blood Count 2.82 MIL/MM3 Hemoglobin 9.0 GM/DL Hematocrit 27.5 % Mean Corpuscular Volume 97.5 FL Mean Corpuscular Hemoglobin 31.9 PG Mean Corpuscular Hemoglobin Concent 32.7 % Red Cell Distribution Width 17.4 % Platelet Count 341 TH/MM3 Mean Platelet Volume 9.7 FL Neutrophils (%) (Auto) 78.7 % Lymphocytes (%) (Auto) 14.2 % Monocytes (%) (Auto) 4.3 % Eosinophils (%) (Auto) 1.9 % Basophils (%) (Auto) 0.9 % Neutrophils # (Auto) 12.2 TH/MM3 Lymphocytes # (Auto) 2.2 TH/MM3 Monocytes # (Auto) 0.7 TH/MM3 Eosinophils # (Auto) 0.3 TH/MM3 Basophils # (Auto) 0.1 TH/MM3 CBC Comment AUTO DIFF Differential Total Cells Counted 100 Neutrophils % (Manual) 68 % Band Neutrophils % 13 % Lymphocytes % 10 % Monocytes % 5 % Eosinophils % 3 % Neutrophils # (Manual) 12.7 TH/MM3 Metamyelocytes 1 % Differential Comment FINAL DIFF MANUAL Platelet Estimate NORMAL Platelet Morphology Comment ENLARGED Laboratory Tests Test 07/25/17 04:10 Blood Urea Nitrogen 32 MG/DL Creatinine 0.54 MG/DL Random Glucose 99 MG/DL Total Protein 6.8 GM/DL Albumin 2.3 GM/DL Calcium Level 8.7 MG/DL Alkaline Phosphatase 487 U/L Aspartate Amino Transf (AST/SGOT) 47 U/L Alanine Aminotransferase (ALT/SGPT) 58 U/L Total Bilirubin 0.3 MG/DL Sodium Level 139 MEQ/L Potassium Level 4.3 MEQ/L Chloride Level 106 MEQ/L Carbon Dioxide Level 25.1 MEQ/L Anion Gap 8 MEQ/L Estimat Glomerular Filtration Rate 110 ML/MIN Microbiology Date/Time Source Procedure Growth Status 07/25/17 10:35 Blood Peripheral Aerobic Blood Culture Pending Received 07/25/17 10:35 Blood Peripheral Anaerobic Blood Culture Pending Received 07/25/17 10:30 Blood Peripheral Aerobic Blood Culture Pending Received 07/25/17 10:30 Blood Peripheral Anaerobic Blood Culture Pending Received 07/24/17 14:00 Blood Peripheral Aerobic Blood Culture - Preliminary NO GROWTH IN 1 DAY Resulted 07/24/17 14:00 Blood Peripheral Anaerobic Blood Culture - Preliminary NO GROWTH IN 1 DAY Resulted 07/24/17 01:15 Urine Catheterized Urine Urine Culture - Preliminary NO GROWTH IN 24 HOURS. Resulted Imaging Last Impressions Chest X-Ray 05/11/17 0000 Signed Impressions: Service Date/Time: Thursday, May 11, 2017 09:37 - CONCLUSION: 1. Small right pleural effusion. 2. Bilateral mid and lower lung zone predominant air space opacity could represent pulmonary edema given the appearance and distribution. Obdulio Sam MD Abdomen X-Ray 05/10/17 0000 Signed Impressions: Service Date/Time: Wednesday, May 10, 2017 22:08 - CONCLUSION: Tip of Dobbhoff catheter is in the antrum of the stomach. Sage Adler MD Gall Bladder Ultrasound 05/08/17 0000 Signed Impressions: Service Date/Time: May 08:23 - CONCLUSION: Focally unremarkable appearance of the gallbladder Obdulio Chun MD Abdomen/Pelvis CT 05/07/17 0000 Signed Impressions: Service Date/Time: Sunday, May 07, 2017 13:23 - CONCLUSION: 1. Large left pneumothorax. 2. Bilateral lower lobe consolidation and bilateral moderate size pleural effusions. 3. Significant soft tissue thickening of the right lateral chest wall and left gluteus muscle. 4. Mild ascites. The findings were called to Dr. Carney. Deangelo Zamora MD Head CT 05/06/17 0000 Signed Impressions: Service Date/Time: Saturday, May 06, 2017 04:18 - CONCLUSION: 1. Evolving large left-sided MCA territory infarct with minimally improved gcbr-kb-ohdeh subfalcine shift. 2. No intercurrent hemorrhage or other acute abnormality. Alejo De La Vega MD Hip and Pelvis X-Ray 05/05/17 0000 Signed Impressions: Service Date/Time: Friday, May 05, 2017 10:59 - CONCLUSION: Left proximal femur trochanteric/subtrochanteric fracture lucency visualized. Postoperative changes. Choco Mustafa MD Chest CT 04/30/17 0000 Signed Impressions: Service Date/Time: Sunday, April 30, 2017 09:20 - CONCLUSION: 1. Bilateral pulmonary infiltrates more pronounced within the lower lobes with tiny bilateral pleural effusions. Material seen filling the lower lobe bronchi bilaterally either related to purulent material or perhaps mucus plugging. Deangelo Wren Jr., MD Carotid Artery Ultrasound 04/24/17 0000 Signed Impressions: Service Date/Time: April 09:45 - CONCLUSION: 1. No hemodynamically significant carotid artery stenosis. Arnie Middleton MD Hip X-Ray 04/21/17 0000 Signed Impressions: Service Date/Time: Friday, April 21, 2017 11:36 - CONCLUSION: Fluoroscopic images during placement of intramedullary siomara left femur. Benja Ramsey MD Physical Exam GENERAL: Well-developed patient, in no apparent distress. SKIN: No rashes, ecchymoses or lesions. Cool and dry. EYES: Pupils equal round and reactive. Extraocular motions intact. No scleral icterus. No injection or drainage. ENT: NAD NECK: Trachea midline. Supple, nontender, no meningeal signs. CARDIOVASCULAR: Regular rate and rhythm without murmurs, gallops, or rubs. RESPIRATORY: Clear to auscultation. Breath sounds equal bilaterally. GASTROINTESTINAL: Abdomen soft, distended. No tenderness. MUSCULOSKELETAL: Pedal edema. Generalized anasarca. NEUROLOGICAL:. Opens eyes, not tracking, Does not track or follow commands Psych: could not be assessed. IV line sites with no e.o infection. Assessment & Plan Remarks Sepsis MDR PSAE pneumonia Left MCA infarction Recs: DC Zosyn IV DC Azithro IV Start Zerbaxa IV (ASP: MDR PSAE pneumonia) Consult pulm: Re: Bilateral infiltrates in trach pt, evaluate need for bronch ? mucus plugs. Follow cultures Follow clinically. murtaza [place] covering this weekend. Jane Saleh MD Jul 25, 2017 13:36
--- NOTE | 2017-07-25 17:03 | MB ---
cc: ELIUD ZARAGOZA DATE OF CONSULTATION 07/25/[address] Jane Saleh REASON FOR CONSULTATION Evaluation for possible bronchoscopy. HISTORY OF PRESENT ILLNESS Ms. Hein is a 76-year-old [place] female who does not speak any Irish. She has tracheostomy tube in place. Most of the information obtained from the chart and talking to her daughter, Trice Panda. She was admitted in the hospital. She had hip fracture and underwent open reduction internal fixation on 04/21. While she was on the floor, she developed altered mental status and was found to have a stroke in the left MCA. The patient was intubated. She has a tracheostomy tube in place. Currently she is on a trache collar. She looks around, does not follow any command. Obviously, there is some language barrier because she speaks only [place] but does not follow any simple command or does not look when we are talking to her. PAST MEDICAL HISTORY 1. History of hip surgery 2. Cerebrovascular accident. MEDICATIONS Currently taking 1. Ceftolozone tazotactam 1500 mg q. 8-hour 2. Insulin 15 units. 3. Heparin 5000 q. 8-hour. 4. Clonidine 0.1 mg q. 6-hour. 5. Aspirin 325 mg a day. ALLERGIES NO KNOWN DRUG ALLERGIES. SOCIAL HISTORY/FAMILY HISTORY Not available. REVIEW OF SYSTEMS The patient is sitting up in the chair, looks around, does not follow command. PHYSICAL EXAMINATION GENERAL: An elderly female on trache collar. VITAL SIGNS: Blood pressure 125/5, heart rate 86, respiration 20, temperature 97.3 HEENT: Pupils react to light. NECK: Supple. She has trache in place. CHEST: Equal bilaterally. No rhonchi. CARDIOVASCULAR: S1, S2 normal ABDOMEN: Benign. EXTREMITIES: No edema. LABORATORY FINDINGS WBC count 15.5, hemoglobin 9.0, hematocrit 27.5, MCV 97, platelet count 341. Sodium 139, potassium 4.3, chloride 106, CO2 25, BUN 32, creatinine 0.54, INR is 1.2. IMAGING STUDIES Chest x-ray shows mild worsening of diffuse alveolar opacities. Her sputum shows Pseudomonas aeriginosa. IMPRESSION 1. Pseudomonas aeriginosa infection with lung infiltrate, possibility of worsening infiltrate and mucous plugging 2. Respiratory failure status post tracheostomy tube. 3. Left MCA CVA 4. History of hip surgery. PLAN I discussed with the patient's daughter, Trice Panda, and explained that she will benefit by bronchoscopy where we can remove any mucus plugging and send it for cultures and also improve her oxygenation. She is not sure what she wants to do. With that, she has a family meeting tomorrow. If she decides to proceed with it, we will schedule her for bronchoscopy. Continue trache collar in the meantime. Antibiotic per ID recommendation. Further recommendations will depend on the course in the hospital. Thank you, Dr. Saleh, for this consultation. MD JASON Sotelo/ /2:21 PM /4:48 PM MTDD
[2017-07-26] MEDS: INSULIN ASPART SUPPLEMENTAL SCALE SQ SCH ×4 (01:30→18:00)
[2017-07-26] MEDS: CEFTOLOZANE-TAZOBACTAM INJ 1,500 MG in SODIUM CHLORIDE 0.9% INJ 100 ML IV SCH ×3 (01:35→15:31)
[2017-07-26 01:38] VITALS: BP 127/67; PULSE 88; RESP 18; TEMP 96.9; O2SAT 98
[2017-07-26] MEDS: HEPARIN SODIUM - SQ 10,000 UNITS/ML VIAL SQ SCH ×3 (06:46→22:41)
[2017-07-26] MEDS: ARTIFICIAL TEARS OPTH SOLN 15 ML BTL EACH EYE SCH ×3 (06:47→22:41)
[2017-07-26] MEDS: DEXTROSE 50% IN WATER 50 ML SYRINGE IV PUSH PRN (06:53)
[2017-07-26 07:14] LABS: AUTOMATED NEUTROPHIL # 7.8 TH/MM3 (1.8-7.7); BASOPHIL # 0.2 TH/MM3 (0-0.2); BASOPHIL % 2.1 % (0.0-2.0); EOSINOPHIL # 0.4 TH/MM3 (0-0.4); EOSINOPHIL % 4.1 % (0.0-4.0); HEMATOCRIT 24.7 % (35.0-46.0); HEMOGLOBIN 8.3 GM/DL (11.6-15.3); LYMPH % 15.6 % (9.0-44.0); LYMPHOCYTE # 1.7 TH/MM3 (1.0-4.8); MEAN CELL VOLUME 96.9 FL (80.0-100.0); MEAN CORPUSCULAR HEMOGLOBIN 32.8 PG (27.0-34.0); MEAN CORPUSCULAR HGB CONC 33.8 % (32.0-36.0); MEAN PLATELET VOLUME 9.9 FL (7.0-11.0); MONO % 4.7 % (0.0-8.0); MONOCYTE # 0.5 TH/MM3 (0-0.9); NEUT % 73.5 % (16.0-70.0); PLATELET COUNT 269 TH/MM3 (150-450); RED BLOOD COUNT 2.55 MIL/MM3 (4.00-5.30); RED CELL DISTRIBUTION WIDTH 17.3 % (11.6-17.2); WHITE BLOOD COUNT 10.6 TH/MM3 (4.0-11.0)
[2017-07-26 07:29] LABS: AST (GOT) 42 U/L (15-37); BLOOD UREA NITROGEN 37 MG/DL (7-18); CALCIUM 8.7 MG/DL (8.5-10.1); CHLORIDE 107 MEQ/L (98-107); CREATININE 0.42 MG/DL (0.50-1.00); GLOMERULAR FILTRATION RATE 147 ML/MIN (>89); GLUCOSE,RANDOM 52 MG/DL (74-106); SODIUM (NA) 139 MEQ/L (136-145)
[2017-07-26 07:30] LABS: ALT (GPT) 51 U/L (10-53)
[2017-07-26 07:32] LABS: ALKALINE PHOSPHATASE 472 U/L (45-117); TOTAL BILIRUBIN ADULT 0.2 MG/DL (0.2-1.0); TOTAL PROTEIN 6.2 GM/DL (6.4-8.2)
[2017-07-26 08:00] VITALS: BP 126/58; PULSE 88; RESP 15; TEMP 98.7; O2SAT 98
[2017-07-26 08:45] VITALS: O2SAT 99
[2017-07-26] MEDS: INSULIN DETEMIR 100 UNITS/ML VIAL SQ SCH ×2 (08:59→23:10)
[2017-07-26] MEDS: DOCUSATE SODIUM 100 MG/10 ML UDC PO SCH (09:00)
[2017-07-26] MEDS: SODIUM CHLORIDE 0.9% FLUSH 5 ML FLUSH IV FLUSH SCH ×2 (09:00→22:42)
[2017-07-26] MEDS: POLYETHYLENE GLYCOL 17 GM PKG PEG SCH (09:00)
[2017-07-26] MEDS: CALCIUM/VITAMIN D 250 MG/125 U TAB PO SCH ×3 (09:00→18:00)
[2017-07-26] MEDS: CHOLECALCIFEROL (VIT D3) 5000 UNIT CAP PO SCH (09:00)
[2017-07-26] MEDS: ASPIRIN 325 MG TAB DOBHOFF SCH (09:00)
[2017-07-26] MEDS: BENEPROTEIN POWDER 1 PACK G-TUBE SCH ×3 (09:00→18:00)
[2017-07-26] MEDS: LISINOPRIL 10 MG TAB PO SCH ×2 (09:00→22:41)
[2017-07-26] MEDS: LANSOPRAZOLE SOLUTAB 30 MG TAB NG SCH (09:00)
[2017-07-26 11:00] LABS: BANDS 14 % (0-6); BASOPHILS 1 % (0-2); LYMPHOCYTES 12 % (9-44); METAMYELOCYTES 1 % (0-1); MONOCYTES 3 % (0-8); NEUTROPHIL # MANUAL DIFF 8.2 TH/MM3 (1.8-7.7); POLYS (SEG NEUTROPHILS) 62 % (16-70)
[2017-07-26 12:00] VITALS: BP 127/59; PULSE 85; RESP 16; TEMP 96.9; O2SAT 96
--- NOTE | 2017-07-26 14:16 | HHI.FPPN ---
Subjective Remarks Patient seen and examined at bedside. No acute events overnight. Patient asleep when we went to examine her. (Chito Damon MD, R1) Objective Vitals Vital Signs Date Time Temp Pulse Resp B/P (MAP) Pulse Ox O2 Delivery O2 Flow Rate FiO2 07/26/17 12:00 96.9 85 16 127/59 (81) 96 07/26/17 08:45 99 T-piece 5.00 40 07/26/17 08:00 Trach Collar 07/26/17 08:00 98.7 88 15 126/58 (80) 98 07/26/17 01:38 96.9 88 18 127/67 (87) 98 07/25/17 22:20 Trach Collar 6.00 28 Humidified 07/25/17 21:54 97 T-piece 6.00 40 07/25/17 21:54 97 T-piece 6.00 40 07/25/17 21:20 96.7 87 20 120/71 (87) 98 07/25/17 16:00 97.2 83 20 118/58 (78) 100 I/O 07/25/17 07/25/17 07/25/17 07/26/17 07/26/17 07/26/17 07:00 15:00 23:00 07:00 15:00 23:00 Intake Total 0 ml 100 ml 100 ml Output Total 800 ml 550 ml Balance -800 ml 100 ml -550 ml 100 ml Intake Oral 0 ml 0 ml IV Total 100 ml 100 ml Output Urine Total 800 ml 550 ml # Voids 0 # Bowel Movements 2 4 (Chito Damon MD, R1) Result Diagram: 07/26/1763407/26/1735 Objective Remarks CONSTITUTIONAL/GEN: sleeping in bed with tracheostomy and PEG tubes in place with head turned to left, she does open her eyes but cannot follow any commands. HEAD: Normocephalic. Atraumatic. Right side facial droop. LUNGS: CTA BL. Breathing spontaneously via T-tube. CARDIOVASCULAR: Regular rate and rhythm. GI/ABD: Soft, non-distended. No grimacing with palpation. Feeding tube insertion point with no redness, no distention NEURO: Eyes open, occasionally tracks; Flaccid paralysis on the right side. MUSC: SCDs on bilateral lower extremities. Pedal pulses present. SKIN: Sacral pressure ulcer extends from anus to coccyx. Procedures ORIF 04/21/17 Echo 04/24/17 Intubation 04/30/17 PEG tube placement 05/1517 (Chito Damon MD, R1) Urinary Catheter: Yes Leavitt insert reason: Obstruction/Retention (Chito Damon MD, R1) A/P Assessment and Plan 76 y/o female with HTN, DM admitted for DKA and hip fracture s/p large CVA after ORIF she is currently stable with her current treatment but has had no meaningful functional recovery and do not anticipate any further neurologic recovery from here on. Dr. Harper, myself and case management had a long discussion with the daughter on 07/23 and the patient's daughter is still hopeful for full recovery for her mom in spite of her mom's state of health since her CVA. DW the daughter that it is our belief based on her clinical picture that she will not make any sort of meaningful recovery and will remain on the trach and PEG for the rest of her life. DW the daughter due to her status that the patient will likely continue to decline and continue to acquire infections associated with this type of clinical picture including UTI, PNA, and sepsis. DW the daughter to consider the QOL that her mother would have wanted. I recommend that this patient receive Hospice services as I would not anticipate her living longer than 6 months. The daughter does not want to consider this at this time and she is the sole decision maker for this patient. In that case, we will continue to treat the patient aggressively as issues arise and honor the families wishes. A one-hour long family meeting was held today (07/26) with patient's daughter Trice, Dr. Harper, Dr. Watts and patient's nurse to discuss patient's poor prognosis. We felt it was important to listen to daughter's perspective and address any questions or concerns she has about her mother's care. Patient goals of care were also discussed. Daughter still wants aggressive treatment. Daughter was informed that from our medical standpoint we do not anticipated any meaningful recovery from her mother's current baseline. Neither do we anticipate for mother to be able to get off PEG tube feeds and trach. However, we will continue to honor daughter's wishes and provide aggressive medical care. ID and pulmonology are actively following. Patient is currently being treated for MDR pseudomonas pna and pulmonology recommended bronchoscopy. Risk and benefits of the procedure were explained and discussed with daughter. The option for her mother not to have the bronchoscopy and to instead continue treatment with antibiotics was also discussed. She is currently unsure about the procedure. She was advised to take time to think about her decision keeping in mind what her mother's wishes would be. (Chito Damon MD, R1) Attending Attestation Patient seen and examined. Case reviewed and discussed with the resident team. Agree with plan of care as discussed with me and documented in the resident note. (Mei Harper MD) Problem List: (1) Chronic respiratory failure ICD Codes: J96.10 - Chronic respiratory failure, unspecified whether with hypoxia or hypercapnia Plan: At this point, respiratory failure is chronic on T-tube Hospital Acquired PNA on 07/21 -- repeat CXR on 03/22 does show improvement. sputum culture positive for Multi drug resistant pseudomonas, blood cultures so far negative. - blood cx from 07/21 no growth 5 days - continue to follow - legionella and S pneumonia urine antigen negative -ID following, recommendations appreciated -ceftolozane/ tazobactam started today -Zosyn and azithromycin discontinued on 07/25 -Pulmonology following, recommended bronchoscopy procedure. Awaiting patient's daughter to make decision about procedure. Infection History MSSA bacteremia Serratia/staph aureus pneumonia C glabrata UTI Citrobacter UTI Serratia/MSSA sputum VAP Antibiotic History Cefazolin: 04/21-04/22, 05/15-05/16 Cefepime: 04/30-05/04, 05/27-06/03 Ceftrioxone 05/26-05/27 Erythromycin 06/16-06/18, 06/19 Gentamicin 04/21 vancomycin 04/30-05/04, 06/21-06/23 Zosyn 07/21 - 07/25 Azithromycin 07/21 - 07/25 ceftolozane/ tazobactam 07/25- (2) Acute CVA (cerebrovascular accident) ICD Codes: I63.9 - Cerebral infarction, unspecified Status: Chronic Plan: Neurologically stable, no improvement. Overall prognosis is poor. Persistent oxygen requirement See above note about meeting with Daughter on 07/23 and 07/26. Daughter still desires full code and aggressive care -Titrate oxygen via trach to maintain O2 saturation above 92% -Continue tube fees at 45ml/hr 24 hours per day thru peg Tube -Neurosurgery, neurology and palliative care have all been consulted in the past and agree with very poor prognosis with no meaningful neurologic recovery. History and imaging: Patient found minimally responsive with neurological deficits around 0820 04/24. Stat CT of head was ordered, which showed large left MCA infarct. Diffuse edema throughout the left MCA distribution, suggested completed infarct. This was discussed and was not a candidate for intracranial intervention. CT (04/30): Reduction in midline shift to 11mm. Unchanged large left MCA infarction. CT head (05/06) shows: Evolving large left-sided MCA territory infarct with minimally improved [id number] subfalcine shift. No intercurrent hemorrhage or other acute abnormality. Echocardiogram- The left ventricular systolic function is low normal with an estimated ejection fraction in the range of 50-55%. Mild concentric left ventricular hypertrophy. Normal left ventricular size. Inzze-ot-hjru mitral valve regurgitation. Carotid Artery US- No hemodynamically significant carotid stenosis (3) UTI (urinary tract infection) ICD Codes: N39.0 - Urinary tract infection, site not specified Status: Resolved Plan: UCx on 07/15 positive for E coli Repeat UCx on 07/20 positive for C. Freundii -see above for abx coverage - UCx on 07/24 positive for yeast - Patient given 1 dose of 200mg IV fluconazole History: - UTI (05/26) Ucx: Citrobacter freundii - ABx: s/p Cefepime x 7 days (4) Sacral decubitus ulcer ICD Codes: L89.159 - Pressure ulcer of sacral region, unspecified stage Status: Chronic Plan: Patient with Stage IV pressure injury over the coccyx -Wound care consult appreciated: 1. Please cleanse coccyx wound every 3 days and PRN for soiling. 2. Apply Calcium Alginate to open wound bed. 3. Secure with bordered gauze every 3 days and PRN for soiling. 4. Continue to turn patient every 2 hours or PRN for comfort. 5. Use one ultrasorb for moisture. Please use flat sheet for repositioning. (5) Anemia ICD Codes: D64.9 - Anemia, unspecified Status: Chronic Plan: s/p 1u of PRBC on 05/28/17. Hgb stable Hemoccult negative on 05/29 - monitor H&H periodically (6) Urinary retention ICD Codes: R33.9 - Retention of urine, unspecified Status: Chronic Plan: - Leavitt cath done because patient was retaining urine with intermittent cath's - Cath last changed 07/15, pt afebrile -Urine output WNL (7) Type 2 diabetes mellitus ICD Codes: E11.9 - Type 2 diabetes mellitus without complications Status: Chronic Plan: - continue to monitor BSG -Decreased Levemir to 15 units q 12 due to BG range below goal. -Will continue to monitor -BS goal 140-180 -Discontinued SSI on 07/16 -AccuCheks QShift -Glucerna for PEG tube feedings @ 45 ml/hr -Glucagon 1 mg per PRN protocol for hypoglycemia BS <70mg/dL History Admitted for DKA which has now resolved. Hemoglobin A1C is 12.9. Diabetes Type II is uncontrolled. (8) Hip fracture ICD Codes: S72.009A - Fracture of unspecified part of neck of unspecified femur , initial encounter for closed fracture Status: Resolved Plan: S/P left hip reduction and intramedullary nail fixation on 04-21-17 -c/w Calcium/Vitamin D (9) Hypertension ICD Codes: I10 - Essential (primary) hypertension Status: Chronic Plan: -Antihypertensives to keep SBP<160, as per critical care recs -c/w clonidine 0.1mg Q6h PRN SBP >160 -c/w lisinopril 20mg Q12h po Echocardiogram 04/24 - EF 50 to 55%. Mild concentric LVH. (10) Fluids, Electrolytes, and Nutrition Status: Acute Plan: Fluids: through PEG tube Electrolyte: on electrolyte protocol Nutrition: continuous Glucerna tube feeds and free water, pump at 45mls/hr, tolerating feeds well, no residual. Protein 1 pack TID. Supplements: calcium TID and vit D3 QD DVT ppx: SCDs/heparin CVA ppx: aspirin 325 mg QD GI ppx: Lansoprazole 30mg qd via NG Colace, dulcolax PRN (Chito Damon MD, R1) Problem Qualifiers (1) Chronic respiratory failure: Qualified Codes: J96.11 - Chronic respiratory failure with hypoxia (2) UTI (urinary tract infection): Qualified Codes: N39.0 - Urinary tract infection, site not specified (3) Sacral decubitus ulcer: Qualified Codes: L89.154 - Pressure ulcer of sacral region, stage 4 (4) Type 2 diabetes mellitus: Qualified Codes: E11.9 - Type 2 diabetes mellitus without complications (5) Hip fracture: (6) Hypertension: Qualified Codes: I10 - Essential (primary) hypertension Chito Damon MD, R1 Jul 26, 2017 14:16 Mei Harper MD Jul 28, 2017 08:22
[2017-07-26 16:00] VITALS: BP 134/71; PULSE 91; RESP 15; TEMP 96.2; O2SAT 91
[2017-07-26] MEDS ORDERED: FLUCONAZOLE 200 MG PREMIX BAG 100 ML IV ONE (17:00)
--- NOTE | 2017-07-26 17:41 | HHI.PR ---
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 Looks around Small amount of trach secretions Objective Vital Signs Vital Signs Date Time Temp Pulse Resp B/P (MAP) Pulse Ox O2 Delivery O2 Flow Rate FiO2 07/26/17 16:00 96.2 91 15 134/71 (92) 91 07/26/17 12:00 96.9 85 16 127/59 (81) 96 07/26/17 08:45 99 T-piece 5.00 40 07/26/17 08:00 Trach Collar 07/26/17 08:00 98.7 88 15 126/58 (80) 98 07/26/17 01:38 96.9 88 18 127/67 (87) 98 07/25/17 22:20 Trach Collar 6.00 28 Humidified 07/25/17 21:54 97 T-piece 6.00 40 07/25/17 21:54 97 T-piece 6.00 40 07/25/17 21:20 96.7 87 20 120/71 (87) 98 I/O 07/25/17 07/25/17 07/25/17 07/26/17 07/26/17 07/26/17 07:00 15:00 23:00 07:00 15:00 23:00 Intake Total 0 ml 100 ml 100 ml Output Total 800 ml 550 ml Balance -800 ml 100 ml -550 ml 100 ml Intake Oral 0 ml 0 ml IV Total 100 ml 100 ml Output Urine Total 800 ml 550 ml # Voids 0 # Bowel Movements 2 4 Result Diagram: 07/26/17 0635 07/26/17 0635 Objective Remarks GENERAL: Elderly female,NAD SKIN: Warm and dry. HEAD: Normocephalic. EYES: No scleral icterus. No injection or drainage. NECK: Supple, trachea midline. No JVD or lymphadenopathy. CARDIOVASCULAR: Regular rate and rhythm without murmurs, gallops, or rubs. RESPIRATORY: Breath sounds equal bilaterally. No accessory muscle use. GASTROINTESTINAL: Abdomen soft, non-tender, nondistended. MUSCULOSKELETAL: No cyanosis, or edema. BACK: Nontender without obvious deformity. No CVA tenderness. A/P Assessment and Plan RF,S/P Trach CVA Pneumonia PLAN: Cont Abx Aerosol nebs Supplement 02 Trach care Will DW Chris Lee MD Jul 26, 2017 17:41
[2017-07-26 20:06] VITALS: BP 149/78; PULSE 90; RESP 21; TEMP 96.6; O2SAT 91
[2017-07-27] VITALS (8 sets, daily range): BP systolic 128–159; BP diastolic 61–77; PULSE 81–97; RESP 15–21; TEMP 97.9–98.7; O2SAT 93–99
[2017-07-27] MEDS: INSULIN ASPART SUPPLEMENTAL SCALE SQ SCH ×5 (01:45→22:23)
[2017-07-27] MEDS: CEFTOLOZANE-TAZOBACTAM INJ 1,500 MG in SODIUM CHLORIDE 0.9% INJ 100 ML IV SCH ×3 (02:06→16:37)
[2017-07-27] MEDS: ARTIFICIAL TEARS OPTH SOLN 15 ML BTL EACH EYE SCH ×3 (06:33→22:22)
[2017-07-27] MEDS: HEPARIN SODIUM - SQ 10,000 UNITS/ML VIAL SQ SCH ×3 (06:33→22:20)
--- NOTE | 2017-07-27 08:58 | HHI.FPPN ---
Subjective Remarks Overnight had an episode of hypoglycemia, corrected after IV dextrose. Respiratory status stable. No other concerns noted by chief of staff doctor. (Klaus Tran MD R2) Objective Vitals Vital Signs Date Time Temp Pulse Resp B/P (MAP) Pulse Ox O2 Delivery O2 Flow Rate FiO2 07/27/17 08:24 93 T-piece 6.00 50 07/27/17 08:00 97.9 81 15 128/61 (83) 94 07/27/17 03:58 97.9 83 18 129/64 (85) 93 07/27/17 00:23 98.7 88 21 148/70 (96) 93 07/26/17 22:40 96 Trach Collar 6.00 28 07/26/17 20:06 96.6 90 21 149/78 (101) 91 07/26/17 16:00 96.2 91 15 134/71 (92) 91 07/26/17 12:00 96.9 85 16 127/59 (81) 96 I/O 07/26/17 07/26/17 07/26/17 07/27/17 07/27/17 07/27/17 07:00 15:00 23:00 07:00 15:00 23:00 Intake Total 100 ml 0 ml Output Total 475 ml 600 ml Balance 100 ml -475 ml -600 ml Intake Oral 0 ml 0 ml IV Total 100 ml Output Urine Total 475 ml 600 ml # Voids 0 # Bowel Movements 4 2 (Klaus Tran MD R2) Result Diagram: 07/26/17 0635 07/26/17 0635 Objective Remarks CONSTITUTIONAL/GEN: sleeping in bed with tracheostomy and PEG tubes in place with head turned to left, appears comfortable. HEAD: Normocephalic. Atraumatic. Right side facial droop. LUNGS: CTAB. Breathing spontaneously via T-tube. CARDIOVASCULAR: NRRR, normal S1/S2, no murmur GI/ABD: Soft, non-distended. No grimacing with palpation. Feeding tube insertion point with no redness, no distention NEURO: Eyes open, occasionally tracks; Flaccid paralysis on the right side. MUSC: SCDs on bilateral lower extremities. Pedal pulses present. SKIN: Sacral pressure ulcer extends from anus to coccyx. Procedures ORIF 04/21/17 Intubation 04/30/17 Chest tube placement 05/07/17, removed 05/12/17 Trach placement 05/15/17 PEG tube placement 05/16/17 Medications and IVs Current Medications Medications (Trade) Dose Ordered Sig/Zeferino Route Start Time Stop Time Status Last Admin (Zofran Inj) 4 mg Q6H PRN IV PUSH 04/20/17 15:00 04/30/17 02:28 (Narcan Inj) 0.4 mg UNSCH PRN IV 04/20/17 17:15 (Oscal-D 250-125) 250 mg TID PO 04/21/17 13:00 07/27/17 09:13 (Vitamin D3) 5,000 units DAILY PO 04/22/17 09:00 07/27/17 09:15 (NS Flush) 2 ml BID IV FLUSH 04/24/17 21:00 07/27/17 09:14 (NS Flush) 2 ml UNSCH PRN IV FLUSH 04/24/17 09:30 07/27/17 09:12 (Aspirin) 325 mg DAILY DOBHOFF 04/27/17 09:00 07/27/17 09:13 (Prevacid Odt) 30 mg DAILY NG 05/08/17 09:00 07/27/17 09:14 (Beneprotein Powder) 1 pack TID G-TUBE 05/12/17 13:00 07/27/17 09:14 (Glucagon Inj) 1 mg UNSCH PRN OTHER 05/21/17 13:15 (D50w (Syr) Inj) 50 ml UNSCH PRN IV PUSH 05/22/17 17:15 07/27/17 09:09 (Tears Naturale Opth Soln) 1 drop Q8HR EACH EYE 06/12/17 07:15 07/27/17 06:33 (Prinivil) 20 mg Q12HR PO 06/21/17 09:00 07/27/17 09:13 (Nitroglycerin 2% Oint) 2 inch Q6H PRN TOPICAL 06/21/17 08:00 06/30/17 14:37 (Miralax) 17 gm DAILY PEG 07/09/17 09:00 07/14/17 08:14 (Catapres) 0.1 mg Q6H PRN PO 07/12/17 00:30 07/25/17 00:21 (Heparin Inj) 5,000 units Q8HR SQ 07/15/17 08:00 07/27/17 06:33 (NovoLOG SUPPLEMENTAL SCALE) 1 Q6HR SQ 07/21/17 18:00 07/25/17 12:01 Ceftolozane/ Tazobactam 1500 mg/Sodium Chloride 100 ml @ 100 mls/hr Q8H IV 07/25/17 09:00 07/27/17 09:53 (Levemir Inj) 7 units Q12HR SQ 07/27/17 09:00 (Klaus Tran MD R2) A/P Assessment and Plan 76 y/o female with HTN, DM admitted for DKA and hip fracture s/p large CVA after ORIF she is currently stable with her current treatment but has had no meaningful functional recovery and do not anticipate any further neurologic recovery from here on. Dr. Harper, myself and case management had a long discussion with the daughter on 07/23 and the patient's daughter is still hopeful for full recovery for her mom in spite of her mom's state of health since her CVA. DW the daughter that it is our belief based on her clinical picture that she will not make any sort of meaningful recovery and will remain on the trach and PEG for the rest of her life. DW the daughter due to her status that the patient will likely continue to decline and continue to acquire infections associated with this type of clinical picture including UTI, PNA, and sepsis. DW the daughter to consider the QOL that her mother would have wanted. I recommend that this patient receive Hospice services as I would not anticipate her living longer than 6 months. The daughter does not want to consider this at this time and she is the sole decision maker for this patient. In that case, we will continue to treat the patient aggressively as issues arise and honor the families wishes. A one-hour long family meeting was held today (07/26) with patient's daughter Dr. Meredith Carnes, Dr. Watts and patient's nurse to discuss patient's poor prognosis. We felt it was important to listen to daughter's perspective and address any questions or concerns she has about her mother's care. Patient goals of care were also discussed. Daughter still wants aggressive treatment. Daughter was informed that from our medical standpoint we do not anticipated any meaningful recovery from her mother's current baseline. Neither do we anticipate for mother to be able to get off PEG tube feeds and trach. However, we will continue to honor daughter's wishes and provide aggressive medical care. ID and pulmonology are actively following. Patient is currently being treated for MDR pseudomonas pna and pulmonology recommended bronchoscopy. Risk and benefits of the procedure were explained and discussed with daughter. The option for her mother not to have the bronchoscopy and to instead continue treatment with antibiotics was also discussed. She is currently unsure about the procedure. She was advised to take time to think about her decision keeping in mind what her mother's wishes would be. (Klaus Tran MD R2) Attending Attestation Patient seen and examined. Case reviewed and discussed with the resident team. Agree with plan of care as discussed with me and documented in the resident note. (Mei Harper MD) Problem List: (1) Chronic respiratory failure ICD Codes: J96.10 - Chronic respiratory failure, unspecified whether with hypoxia or hypercapnia Plan: At this point, respiratory failure is chronic on T-tube Hospital Acquired PNA on 07/21 -- repeat CXR on 07/23 does show improvement. sputum culture positive for Multi drug resistant pseudomonas, blood cultures so far negative. blood cx from 07/21 no growth (final) Legionella and S pneumonia urine antigen negative -ID following (Dr. Saleh), recommendations appreciated - Continue ceftolozane/ tazobactam -Pulmonology following (Dr. Rizo), recommended bronchoscopy procedure - I discussed with patient's daughter on 07/27, explained that currently there is no status change with antibiotics alone. Reviewed substantial risks of procedure given all this patient's medical comorbidities, but also potential benefits. Daughter would like to allow one more day of ceftolozane/tazobactam and if no improvement on 07/28, will likely elect for bronchoscopy. Primary team to update her on condition tomorrow 07/28. Advised daughter that if she at any point decides to proceed with bronchoscopy to call patient's nurse so message can be sent to Dr. Rizo. Infection History Pseudomonas hospital-acquired pneumonia - active MSSA bacteremia - resolved Serratia/staph aureus pneumonia - resolved C glabrata UTI - resolved Citrobacter UTI - resolved Serratia/MSSA sputum VAP - resolved Antibiotic History Cefazolin: 04/21-04/22, 05/15-05/16 Cefepime: 04/30-05/04, 05/27-06/03 Ceftrioxone 05/26-05/27 Erythromycin 06/16-06/18, 06/19 Gentamicin 04/21 vancomycin 04/30-05/04, 06/21-06/23 Zosyn 07/21 - 07/25 Azithromycin 07/21 - 07/25 Fluconazole 04/29 - ; 07/26 ceftolozane/ tazobactam 07/25 - presrent (2) Acute CVA (cerebrovascular accident) ICD Codes: I63.9 - Cerebral infarction, unspecified Status: Chronic Plan: Neurologically stable, no improvement. Overall prognosis is poor. Persistent oxygen requirement See above note about meeting with Daughter on 07/23 and 07/26. Daughter still desires full code and aggressive care -Titrate oxygen via trach to maintain O2 saturation above 92% -Continue tube fees at 45ml/hr 24 hours per day thru peg Tube -Neurosurgery, neurology and palliative care have all been consulted in the past and agree with very poor prognosis with no meaningful neurologic recovery. History and imaging: Patient found minimally responsive with neurological deficits around 0820 04/24. Stat CT of head was ordered, which showed large left MCA infarct. Diffuse edema throughout the left MCA distribution, suggested completed infarct. This was discussed and was not a candidate for intracranial intervention. CT (04/30): Reduction in midline shift to 11mm. Unchanged large left MCA infarction. CT head (05/06) shows: Evolving large left-sided MCA territory infarct with minimally improved shyx-as-excto subfalcine shift. No intercurrent hemorrhage or other acute abnormality. Echocardiogram- The left ventricular systolic function is low normal with an estimated ejection fraction in the range of 50-55%. Mild concentric left ventricular hypertrophy. Normal left ventricular size. Ddgsi-hz-oxgy mitral valve regurgitation. Carotid Artery US- No hemodynamically significant carotid stenosis (3) UTI (urinary tract infection) ICD Codes: N39.0 - Urinary tract infection, site not specified Status: Resolved Plan: UCx on 07/15 positive for E coli Repeat UCx on 07/20 positive for C. Freundii UCx 07/24 grew only yeast - See above for antibiotic history and coverage (4) Sacral decubitus ulcer ICD Codes: L89.159 - Pressure ulcer of sacral region, unspecified stage Status: Chronic Plan: Patient with Stage IV pressure injury over the coccyx -Wound care consult appreciated: 1. Please cleanse coccyx wound every 3 days and PRN for soiling. 2. Apply Calcium Alginate to open wound bed. 3. Secure with bordered gauze every 3 days and PRN for soiling. 4. Continue to turn patient every 2 hours or PRN for comfort. 5. Use one ultrasorb for moisture. Please use flat sheet for repositioning. (5) Anemia ICD Codes: D64.9 - Anemia, unspecified Status: Chronic Plan: s/p 1u of PRBC on 05/28/17. Hgb stable Hemoccult negative on 05/29 - monitor H&H periodically (6) Urinary retention ICD Codes: R33.9 - Retention of urine, unspecified Status: Chronic Plan: - Leavitt cath done because patient was retaining urine with intermittent cath's - Cath last changed 07/15, pt afebrile - Urine output WNL (7) Type 2 diabetes mellitus ICD Codes: E11.9 - Type 2 diabetes mellitus without complications Status: Chronic Plan: - continue to monitor BSG -Decreased Levemir to 15 units q 12 due to BG range below goal. -Will continue to monitor -BS goal 140-180 -Discontinued SSI on 07/16 -AccuCheks QShift -Glucerna for PEG tube feedings @ 45 ml/hr -Glucagon 1 mg per PRN protocol for hypoglycemia BS <70mg/dL History Admitted for DKA which has now resolved. Hemoglobin A1C is 12.9. Diabetes Type II is uncontrolled. (8) Hip fracture ICD Codes: S72.009A - Fracture of unspecified part of neck of unspecified femur , initial encounter for closed fracture Status: Resolved Plan: S/P left hip reduction and intramedullary nail fixation on 04-21-17 -c/w Calcium/Vitamin D (9) Hypertension ICD Codes: I10 - Essential (primary) hypertension Status: Chronic Plan: -Antihypertensives to keep SBP<160, as per critical care recs -c/w clonidine 0.1mg Q6h PRN SBP >160 -c/w lisinopril 20mg Q12h po Echocardiogram 04/24 - EF 50 to 55%. Mild concentric LVH. (10) Fluids, Electrolytes, and Nutrition Status: Acute Plan: Fluids: through PEG tube Electrolyte: on electrolyte protocol Nutrition: continuous Glucerna tube feeds and free water, pump at 45mls/hr, tolerating feeds well, no residual. Protein 1 pack TID. Supplements: calcium TID and vit D3 QD DVT ppx: SCDs/heparin CVA ppx: aspirin 325 mg QD GI ppx: Lansoprazole 30mg qd via NG Colace, dulcolax PRN (Klaus Tran MD R2) Problem Qualifiers (1) Chronic respiratory failure: Qualified Codes: J96.11 - Chronic respiratory failure with hypoxia (2) UTI (urinary tract infection): Qualified Codes: N39.0 - Urinary tract infection, site not specified (3) Sacral decubitus ulcer: Qualified Codes: L89.154 - Pressure ulcer of sacral region, stage 4 (4) Type 2 diabetes mellitus: Qualified Codes: E11.9 - Type 2 diabetes mellitus without complications (5) Hip fracture: (6) Hypertension: Qualified Codes: I10 - Essential (primary) hypertension Klaus Trna MD R2 Jul 27, 2017 08:58 Mei Harper MD Jul 28, 2017 08:25
[2017-07-27] MEDS: POLYETHYLENE GLYCOL 17 GM PKG PEG SCH (09:00)
[2017-07-27] MEDS: DEXTROSE 50% IN WATER 50 ML SYRINGE IV PUSH PRN (09:09)
[2017-07-27] MEDS: SODIUM CHLORIDE 0.9% FLUSH 5 ML FLUSH IV FLUSH PRN (09:12)
[2017-07-27] MEDS: LISINOPRIL 10 MG TAB PO SCH ×2 (09:13→22:21)
[2017-07-27] MEDS: CALCIUM/VITAMIN D 250 MG/125 U TAB PO SCH ×3 (09:13→16:46)
[2017-07-27] MEDS: ASPIRIN 325 MG TAB DOBHOFF SCH (09:13)
[2017-07-27] MEDS: SODIUM CHLORIDE 0.9% FLUSH 5 ML FLUSH IV FLUSH SCH ×2 (09:14→21:00)
[2017-07-27] MEDS: LANSOPRAZOLE SOLUTAB 30 MG TAB NG SCH (09:14)
[2017-07-27] MEDS: BENEPROTEIN POWDER 1 PACK G-TUBE SCH ×3 (09:14→16:45)
[2017-07-27] MEDS: CHOLECALCIFEROL (VIT D3) 5000 UNIT CAP PO SCH (09:15)
[2017-07-27] MEDS: INSULIN DETEMIR 100 UNITS/ML VIAL SQ SCH ×2 (12:59→22:20)
--- NOTE | 2017-07-27 13:57 | HHI.PR ---
Addendum to Inpatient Note Addendum Reason: Additional Documentation Additional Information Hospital Course Summary 76 yo female with PMH of DM, HTN admitted for DKA and a left hip fracture. Her DKA corrected with medical therapy, and she was taken to the OR for ORIF. She tolerated the ORIF well. On POD#3 however, she developed a large acute CVA. She was evaluated by neurology and determined not to be a candidate for tPA. Due to the size of her stroke, her prognosis was evaluated as very poor. After her stroke she developed acute hypoxic respiratory failure and was transferred to the ICU for ventilator support. Her hospital course has been complicated with numerous healthcare-associated infections. See below for details of infection and antibiotic history. She also developed a pneumothorax while in the ICU and had a chest tube placed from 05/07 to 05/12. She was switched from intubation to T- tube on 05/15 and eventually developed spontaneous breathing without ventilatory support. However, she continues to require oxygenation through the T-tube due to hypoxia and likely will never be able to be weaned off the T-tube. Given her poor prognosis, palliative care had been consulted, however the daughter who is patient's POA opts for aggressive medical management based on patient's philosophy. Palliative now signed off but available as needed. Primary team having ongoing discussions with daughter about patient's status, prognosis, and care options. Most recently, Ms. Hein was found to have Pseudomonas pneumonia. ID and pulmonology are following (see below for full list of consultants). Pulmonology offering bronchoscopy, daughter at this time electing to wait a few days with antibiotics alone to see if there is any improvement prior to taking on risks associated with anesthesia. Consultants ID Dr. Saleh continuing to follow Pulmonology Dr. Rizo continuing to follow Palliative Care Dr. Rivera following intermittently, available as needed CCM Dr. Red signed off 07/11/[address] Malave signed off 05/14/[address] López signed off 05/22/17 Procedures ORIF 04/21/17 Intubation 04/30/17 Chest tube placement 05/07/17, removed 05/12/17 PEG tube placement 05/16/17 Trach placement 06/06/17 Infection History Pseudomonas hospital-acquired pneumonia - active MSSA bacteremia - resolved Serratia/staph aureus pneumonia - resolved C glabrata UTI - resolved Citrobacter UTI - resolved Serratia/MSSA sputum VAP - resolved Antibiotic History Cefazolin: 04/21-04/22, 05/15-05/16 Cefepime: 04/30-05/04, 05/27-06/03 Ceftrioxone 05/26-05/27 Erythromycin 06/16-06/18, 06/19 Gentamicin 04/21 vancomycin 04/30-05/04, 06/21-06/23 Zosyn 07/21 - 07/25 Azithromycin 07/21 - 07/25 ceftolozane/ tazobactam 07/25 - present Klaus Tran MD R2 Jul 27, 2017 13:57
--- NOTE | 2017-07-27 15:38 | HHI.PR ---
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 Looks around Small amount of trach secretions No distress Objective Vital Signs Vital Signs Date Time Temp Pulse Resp B/P (MAP) Pulse Ox O2 Delivery O2 Flow Rate FiO2 07/27/17 12:00 98.4 84 16 133/71 (91) 99 07/27/17 09:00 94 Trach Collar 6.00 28 07/27/17 08:24 93 T-piece 6.00 50 07/27/17 08:00 97.9 81 15 128/61 (83) 94 07/27/17 03:58 97.9 83 18 129/64 (85) 93 07/27/17 00:23 98.7 88 21 148/70 (96) 93 07/26/17 22:40 96 Trach Collar 6.00 28 07/26/17 20:06 96.6 90 21 149/78 (101) 91 07/26/17 16:00 96.2 91 15 134/71 (92) 91 I/O 07/26/17 07/26/17 07/26/17 07/27/17 07/27/17 07/27/17 07:00 15:00 23:00 07:00 15:00 23:00 Intake Total 100 ml 0 ml Output Total 475 ml 600 ml Balance 100 ml -475 ml -600 ml Intake Oral 0 ml 0 ml IV Total 100 ml Output Urine Total 475 ml 600 ml # Voids 0 # Bowel Movements 4 2 Result Diagram: 07/26/17 0635 07/26/17 0635 Objective Remarks GENERAL: Elderly female,NAD SKIN: Warm and dry. HEAD: Normocephalic. EYES: No scleral icterus. No injection or drainage. NECK: Supple, trachea midline. No JVD or lymphadenopathy. CARDIOVASCULAR: Regular rate and rhythm without murmurs, gallops, or rubs. RESPIRATORY: Breath sounds equal bilaterally. No accessory muscle use. GASTROINTESTINAL: Abdomen soft, non-tender, nondistended. MUSCULOSKELETAL: No cyanosis, or edema. BACK: Nontender without obvious deformity. No CVA tenderness. A/P Assessment and Plan RF,S/P Trach CVA Pneumonia PLAN: Cont Abx Aerosol nebs Supplement 02 Trach care Chris Rizo MD Jul 27, 2017 15:38
[2017-07-28] VITALS (9 sets, daily range): BP systolic 144–160; BP diastolic 69–83; PULSE 89–95; RESP 18–21; TEMP 96.1–98; O2SAT 93–99
[2017-07-28] MEDS: CEFTOLOZANE-TAZOBACTAM INJ 1,500 MG in SODIUM CHLORIDE 0.9% INJ 100 ML IV SCH ×3 (01:07→16:49)
[2017-07-28] MEDS: INSULIN ASPART SUPPLEMENTAL SCALE SQ SCH ×3 (06:00→17:16)
[2017-07-28] MEDS: HEPARIN SODIUM - SQ 10,000 UNITS/ML VIAL SQ SCH ×3 (06:16→20:04)
[2017-07-28] MEDS: ARTIFICIAL TEARS OPTH SOLN 15 ML BTL EACH EYE SCH ×3 (06:16→20:06)
[2017-07-28 07:49] LABS: AUTOMATED NEUTROPHIL # 6.9 TH/MM3 (1.8-7.7); BASOPHIL # 0.1 TH/MM3 (0-0.2); BASOPHIL % 0.8 % (0.0-2.0); EOSINOPHIL # 0.4 TH/MM3 (0-0.4); EOSINOPHIL % 3.9 % (0.0-4.0); HEMATOCRIT 27.7 % (35.0-46.0); HEMOGLOBIN 9.1 GM/DL (11.6-15.3); LYMPH % 17.4 % (9.0-44.0); LYMPHOCYTE # 1.7 TH/MM3 (1.0-4.8); MEAN CELL VOLUME 99.2 FL (80.0-100.0); MEAN CORPUSCULAR HEMOGLOBIN 32.7 PG (27.0-34.0); MEAN PLATELET VOLUME 9.5 FL (7.0-11.0); MONO % 5.5 % (0.0-8.0); MONOCYTE # 0.5 TH/MM3 (0-0.9); NEUT % 72.4 % (16.0-70.0); PLATELET COUNT 315 TH/MM3 (150-450); RED BLOOD COUNT 2.79 MIL/MM3 (4.00-5.30); RED CELL DISTRIBUTION WIDTH 17.6 % (11.6-17.2); WHITE BLOOD COUNT 9.5 TH/MM3 (4.0-11.0)
[2017-07-28 08:16] LABS: ALKALINE PHOSPHATASE 507 U/L (45-117); ALT (GPT) 47 U/L (10-53); TOTAL BILIRUBIN ADULT 0.2 MG/DL (0.2-1.0); TOTAL PROTEIN 6.8 GM/DL (6.4-8.2)
[2017-07-28 08:23] LABS: ALBUMIN 2.1 GM/DL (3.4-5.0); AST (GOT) 43 U/L (15-37); BICARBONATE 27.4 MEQ/L (21.0-32.0); BLOOD UREA NITROGEN 40 MG/DL (7-18); CALCIUM 8.9 MG/DL (8.5-10.1); CHLORIDE 111 MEQ/L (98-107); CREATININE 0.47 MG/DL (0.50-1.00); GLOMERULAR FILTRATION RATE 130 ML/MIN (>89); GLUCOSE,RANDOM 127 MG/DL (74-106); SODIUM (NA) 145 MEQ/L (136-145)
[2017-07-28] MEDS: INSULIN DETEMIR 100 UNITS/ML VIAL SQ SCH ×2 (08:58→20:27)
[2017-07-28] MEDS: CHOLECALCIFEROL (VIT D3) 5000 UNIT CAP PO SCH (08:58)
[2017-07-28] MEDS: LISINOPRIL 10 MG TAB PO SCH ×2 (08:59→20:05)
[2017-07-28] MEDS: POLYETHYLENE GLYCOL 17 GM PKG PEG SCH (09:00)
[2017-07-28] MEDS: CALCIUM/VITAMIN D 250 MG/125 U TAB PO SCH ×3 (09:01→17:16)
[2017-07-28] MEDS: LANSOPRAZOLE SOLUTAB 30 MG TAB NG SCH (09:01)
[2017-07-28] MEDS: SODIUM CHLORIDE 0.9% FLUSH 5 ML FLUSH IV FLUSH SCH ×2 (09:01→20:06)
[2017-07-28] MEDS: ASPIRIN 325 MG TAB DOBHOFF SCH (09:02)
[2017-07-28] MEDS: BENEPROTEIN POWDER 1 PACK G-TUBE SCH ×3 (09:02→16:52)
--- NOTE | 2017-07-28 09:22 | HHI.FPPN ---
Subjective Remarks No acute events overnight. Daughter not present in room. Afebrile. VSS. Patient able to open eyes with painful stimuli. (Apple Winslow MD R1) Objective Vitals Vital Signs Date Time Temp Pulse Resp B/P (MAP) Pulse Ox O2 Delivery O2 Flow Rate FiO2 07/28/17 00:21 98.0 89 21 144/69 (94) 93 07/27/17 20:44 98.2 97 20 159/72 (101) 93 07/27/17 20:00 Trach Collar 8.00 40 07/27/17 19:52 93 T-piece 8.00 40 07/27/17 16:00 98.5 89 16 157/77 (103) 94 07/27/17 12:00 98.4 84 16 133/71 (91) 99 I/O 07/27/17 07/27/17 07/27/17 07/28/17 07/28/17 07/28/17 07:00 15:00 23:00 07:00 15:00 23:00 Intake Total 100 ml 483 ml Output Total 600 ml 650 ml 500 ml Balance -600 ml 100 ml -167 ml -500 ml Intake Oral 0 ml IV Total 100 ml Tube Feeding 483 ml Output Urine Total 600 ml 650 ml 500 ml # Bowel Movements 2 2 2 (Apple Winslow MD R1) Result Diagram: 07/28/1771907/28/17719 Objective Remarks CONSTITUTIONAL/GEN: sleeping in bed with tracheostomy and PEG tubes in place, appears comfortable. HEAD: Normocephalic. Atraumatic. Right side facial droop. LUNGS: CTAB. Breathing spontaneously via T-tube. CARDIOVASCULAR: NRRR, normal S1/S2, no murmur GI/ABD: Soft, non-distended. No grimacing with palpation. Feeding tube insertion point with no redness, no distention NEURO: Eyes open with painful stimuli, occasionally tracks; Flaccid paralysis on the right side. MUSC: SCDs on bilateral lower extremities. Pedal pulses present. SKIN: Sacral pressure ulcer extends from anus to coccyx. Procedures ORIF 04/21/17 Intubation 04/30/17 Chest tube placement 05/07/17, removed 05/12/17 Trach placement 05/15/17 PEG tube placement 05/16/17 (Apple Winslow MD R1) A/P Assessment and Plan 76 y/o female with HTN, DM admitted for DKA and hip fracture s/p large CVA after ORIF she is currently stable with her current treatment but has had no meaningful functional recovery and do not anticipate any further neurologic recovery from here on. Dr. Harper, Dr. Tran and case management had a long discussion with the daughter on 07/23 and the patient's daughter is still hopeful for full recovery for her mom in spite of her mom's state of health since her CVA. DW the daughter that it is our belief based on her clinical picture that she will not make any sort of meaningful recovery and will remain on the trach and PEG for the rest of her life. DW the daughter due to her status that the patient will likely continue to decline and continue to acquire infections associated with this type of clinical picture including UTI, PNA, and sepsis. DW the daughter to consider the QOL that her mother would have wanted. We recommend that this patient receive Hospice services as we would not anticipate her living longer than 6 months. The daughter does not want to consider this at this time and she is the sole decision maker for this patient. In that case, we will continue to treat the patient aggressively as issues arise and honor the families wishes. A one-hour long family meeting was held (07/26) with patient's daughter Trice, Dr. Harper, Dr. Watts and patient's nurse to discuss patient's poor prognosis. We felt it was important to listen to daughter's perspective and address any questions or concerns she has about her mother's care. Patient goals of care were also discussed. Daughter still wants aggressive treatment. Daughter was informed that from our medical standpoint we do not anticipated any meaningful recovery from her mother's current baseline. Neither do we anticipate for mother to be able to get off PEG tube feeds and trach. However, we will continue to honor daughter's wishes and provide aggressive medical care. ID and pulmonology are actively following. Patient is currently being treated for MDR pseudomonas pna and pulmonology recommended bronchoscopy. Risk and benefits of the procedure were explained and discussed with daughter. The option for her mother not to have the bronchoscopy and to instead continue treatment with antibiotics was also discussed. She is currently unsure about the procedure. She was advised to take time to think about her decision keeping in mind what her mother's wishes would be. (Apple Winslow MD R1) Attending Attestation Patient seen and examined. Case reviewed and discussed with the resident team. Agree with plan of care as discussed with me and documented in the resident note. (Mei Harper MD) Problem List: (1) Chronic respiratory failure ICD Codes: J96.10 - Chronic respiratory failure, unspecified whether with hypoxia or hypercapnia Plan: At this point, respiratory failure is chronic on T-tube Hospital Acquired PNA on 07/21 -- repeat CXR on 07/23 does show improvement. sputum culture positive for Multi drug resistant pseudomonas, blood cultures so far negative. blood cx from 07/21 no growth (final) Legionella and S pneumonia urine antigen negative -ID following (Dr. Saleh), recommendations appreciated - Continue ceftolozane/ tazobactam -Pulmonology following (Dr. Rizo), recommended bronchoscopy procedure - Dr. Tran discussed with patient's daughter on 07/27, explained that currently there is no status change with antibiotics alone. Reviewed substantial risks of procedure given all this patient's medical comorbidities, but also potential benefits. Daughter would like to allow one more day of ceftolozane/tazobactam and if no improvement, will likely elect for bronchoscopy. Primary team to update her on condition today. Advised daughter that if she at any point decides to proceed with bronchoscopy to call patient's nurse so message can be sent to Dr. Rizo. Infection History Pseudomonas hospital-acquired pneumonia - active MSSA bacteremia - resolved Serratia/staph aureus pneumonia - resolved C glabrata UTI - resolved Citrobacter UTI - resolved Serratia/MSSA sputum VAP - resolved Antibiotic History Cefazolin: 04/21-04/22, 05/15-05/16 Cefepime: 04/30-05/04, 05/27-06/03 Ceftrioxone 05/26-05/27 Erythromycin 06/16-06/18, 06/19 Gentamicin 04/21 vancomycin 04/30-05/04, 06/21-06/23 Zosyn 07/21 - 07/25 Azithromycin 07/21 - 07/25 Fluconazole 04/29 - ; 07/26 ceftolozane/ tazobactam 07/25 - presrent (2) Acute CVA (cerebrovascular accident) ICD Codes: I63.9 - Cerebral infarction, unspecified Status: Chronic Plan: Neurologically stable, no improvement. Overall prognosis is poor. Persistent oxygen requirement See above note about meeting with Daughter on 07/23 and 07/26. Daughter still desires full code and aggressive care -Titrate oxygen via trach to maintain O2 saturation above 92% -Continue tube fees at 45ml/hr 24 hours per day thru peg Tube -Neurosurgery, neurology and palliative care have all been consulted in the past and agree with very poor prognosis with no meaningful neurologic recovery. History and imaging: Patient found minimally responsive with neurological deficits around 0820 04/24. Stat CT of head was ordered, which showed large left MCA infarct. Diffuse edema throughout the left MCA distribution, suggested completed infarct. This was discussed and was not a candidate for intracranial intervention. CT (04/30): Reduction in midline shift to 11mm. Unchanged large left MCA infarction. CT head (05/06) shows: Evolving large left-sided MCA territory infarct with minimally improved [id number] subfalcine shift. No intercurrent hemorrhage or other acute abnormality. Echocardiogram- The left ventricular systolic function is low normal with an estimated ejection fraction in the range of 50-55%. Mild concentric left ventricular hypertrophy. Normal left ventricular size. [id number]-fu-[id number] mitral valve regurgitation. Carotid Artery US- No hemodynamically significant carotid stenosis (3) UTI (urinary tract infection) ICD Codes: N39.0 - Urinary tract infection, site not specified Status: Resolved Plan: UCx on 07/15 positive for E coli Repeat UCx on 07/20 positive for C. Freundii UCx 07/24 grew only yeast - See above for antibiotic history and coverage (4) Sacral decubitus ulcer ICD Codes: L89.159 - Pressure ulcer of sacral region, unspecified stage Status: Chronic Plan: Patient with Stage IV pressure injury over the coccyx -Wound care consult appreciated: 1. Please cleanse coccyx wound every 3 days and PRN for soiling. 2. Apply Calcium Alginate to open wound bed. 3. Secure with bordered gauze every 3 days and PRN for soiling. 4. Continue to turn patient every 2 hours or PRN for comfort. 5. Use one ultrasorb for moisture. Please use flat sheet for repositioning. (5) Anemia ICD Codes: D64.9 - Anemia, unspecified Status: Chronic Plan: s/p 1u of PRBC on 05/28/17. Hgb stable Hemoccult negative on 05/29 - monitor H&H periodically (6) Urinary retention ICD Codes: R33.9 - Retention of urine, unspecified Status: Chronic Plan: - Leavitt cath done because patient was retaining urine with intermittent cath's - Cath last changed 07/15, pt afebrile - Urine output WNL (7) Type 2 diabetes mellitus ICD Codes: E11.9 - Type 2 diabetes mellitus without complications Status: Chronic Plan: - continue to monitor BSG -Decreased Levemir to 15 units q 12 due to BG range below goal. -Will continue to monitor -BS goal 140-180 -Discontinued SSI on 07/16 -AccuCheks QShift -Glucerna for PEG tube feedings @ 45 ml/hr -Glucagon 1 mg per PRN protocol for hypoglycemia BS <70mg/dL History Admitted for DKA which has now resolved. Hemoglobin A1C is 12.9. Diabetes Type II is uncontrolled. (8) Hip fracture ICD Codes: S72.009A - Fracture of unspecified part of neck of unspecified femur , initial encounter for closed fracture Status: Resolved Plan: S/P left hip reduction and intramedullary nail fixation on 04-21-17 -c/w Calcium/Vitamin D (9) Hypertension ICD Codes: I10 - Essential (primary) hypertension Status: Chronic Plan: -Antihypertensives to keep SBP<160, as per critical care recs -c/w clonidine 0.1mg Q6h PRN SBP >160 -c/w lisinopril 20mg Q12h po Echocardiogram 04/24 - EF 50 to 55%. Mild concentric LVH. (10) Fluids, Electrolytes, and Nutrition Status: Acute Plan: Fluids: through PEG tube Electrolyte: on electrolyte protocol Nutrition: continuous Glucerna tube feeds and free water, pump at 45mls/hr, tolerating feeds well, no residual. Protein 1 pack TID. Supplements: calcium TID and vit D3 QD DVT ppx: SCDs/heparin CVA ppx: aspirin 325 mg QD GI ppx: Lansoprazole 30mg qd via NG Colace, dulcolax PRN (Apple Winslow MD R1) Problem Qualifiers (1) Chronic respiratory failure: Qualified Codes: J96.11 - Chronic respiratory failure with hypoxia (2) UTI (urinary tract infection): Qualified Codes: N39.0 - Urinary tract infection, site not specified (3) Sacral decubitus ulcer: Qualified Codes: L89.154 - Pressure ulcer of sacral region, stage 4 (4) Type 2 diabetes mellitus: Qualified Codes: E11.9 - Type 2 diabetes mellitus without complications (5) Hip fracture: (6) Hypertension: Qualified Codes: I10 - Essential (primary) hypertension Apple Winslow MD R1 Jul 28, 2017 09:22 Mei Harper MD Jul 29, 2017 11:51
[2017-07-28 09:50] LABS: BANDS 4 % (0-6); BASOPHILS 2 % (0-2); LYMPHOCYTES 12 % (9-44); METAMYELOCYTES 1 % (0-1); MONOCYTES 4 % (0-8); MYELOCYTES 1 % (0-0); NEUTROPHIL # MANUAL DIFF 7.5 TH/MM3 (1.8-7.7); POLYS (SEG NEUTROPHILS) 73 % (16-70)
--- NOTE | 2017-07-28 15:04 | HHI.HCPN ---
Reason for visit a. To assist with evaluation and management of symptoms including: Debility and pain. b. To assist medical decision maker(s) with: better understanding of current medical conditions; weighing benefits/burdens of medical treatment options; making medical treatment decisions. . Subjective/Interval History Mrs. Hein is a 76-year-old female with a past medical history of hypertension, diabetes mellitus and CVA who presented to the ED on 04/20/17 via EMS for evaluation of after a fall. Upon ED admission, random glucose 559. Patient underwent Left hip reduction and intramedullary nail fixation on 04/21/17. Clinical course complicated by large left MCA infarct with diffuse edema throughout the left MCA distribution. Medical course further complicated by prolonged hospitalization, tracheostomy status post prolonged ventilation support, pneumonia, deconditioning. Palliative care reconsulted for further clarifications of goals of care given overall poor prognosis. Patient seen in her room. Sitting up in verona chair in no acute distress. Eyes closed, briefly opening eyes to tactile stimuli. Not tracking with eyes or following any commands. Currently on T-piece. Sputum culture 07/21/17 growing Pseudomonas Aeruginosa. Infectious disease following for evaluation and management of sepsis, MSSA and aspiration pneumonia, C.glabrata UTI. Pulmonology, Dr. Rizo consulted on 07/25/17 for evaluation for possible bronchoscopy. Most recent chest x-ray 07/25/17 revealing worsening of the diffuse alveolar opacities which may represent pulmonary edema. Laboratory workup today revealing WBC 9.5, Hgb is stable and 9.1, platelet count 315. albumin 2.1. No family at bedside during my assessment. Telephone call to patient's daughter Trice Salvador. She reported that she has been receiving frequent medical updates from staff. Reports recent meeting in which patients clinical condition and prognosis was discussed. Reviewed with daughter that that no meaningful neurological recovery has been observed over 3 months post stroke. Review likely trajectory of illness to include continue progressive decline, high risk for further complications such as recurrent infections, bed sores and . Daughter reports that patient has made 'a significant improvement" since her stroke. Daughter further tells me that patient is more interactive, following commands when she is spoken in [place], "fixing her own hair" and "cleaning her own eyes". Daughter reports that patient "understands when talked to" which gives her hope of a full neurological recovery. Reviewed with daughter that a meaningful neurological recovery is not anticipated. Gently reviewed options of treatment to include continuation of aggressive management vs. transition to comfort-directed care with hospice. Daughter wishing to continue aggressive management. However, she has not decided regarding bronchoscopy. Asking to allow an additional 24 hours for reevaluation. Case discussed with block and case maker Trina. . Family/friend interactions See interval note. . Advance Directives Living Will: Never completed Health Care Surrogate: Never completed Durable Power of Fowl Blood Tester: Never completed Advance Directive Specifics Health Care Surrogate(s): No advance directives completed. As per [place] statute, healthcare proxy decision making falls to patient's only daughter Norma Salvador. . Documented care wishes: No living will completed. . Significant change in goals: Full code. Daughter electing full aggressive care. . Objective Vital Signs Date Time Temp Pulse Resp B/P (MAP) Pulse Ox O2 Delivery O2 Flow Rate FiO2 07/28/17 12:34 98 T-piece 7.00 50 07/28/17 12:34 98 T-piece 7.00 50 07/28/17 12:00 96.3 95 21 152/83 (106) 96 07/28/17 08:00 96.1 90 21 152/83 (106) 96 07/28/17 08:00 6.00 07/28/17 00:21 98.0 89 21 144/69 (94) 93 07/27/17 20:44 98.2 97 20 159/72 (101) 93 07/27/17 20:00 Trach Collar 8.00 40 07/27/17 19:52 93 T-piece 8.00 40 07/27/17 16:00 98.5 89 16 157/77 (103) 94 Intake & Output 07/28/17 07/28/17 07:00 19:00 Output Total 500 ml 0 ml Balance -500 ml 0 ml Output Urine Total 500 ml Tube Feeding Residual Discard 0 ml # Bowel Movements 2 Physical Exam CONSTITUTIONAL/GENERAL: This is an elderly , ill looking elderly female sitting up in verona chair in no acute distress. TUBES/LINES/DRAINS: PIV's. Tracheostomy on T piece, SCD, PEG tube. SKIN: No jaundice, rashes, or lesions. Ecchymoses on upper extremities. Skin temperature appropriate. Not diaphoretic. NECK: Trachea midline. Supple. Tracheostomy in place. CARDIOVASCULAR: Regular rate and rhythm. Peripheral pulses symmetric. RESPIRATORY/CHEST: Symmetric, tracheostomy. Clear breath sounds bilaterally. GASTROINTESTINAL: Abdomen soft, round, mildly distended. Bowel sounds present. PEG tube in place. GENITOURINARY: Without palpable bladder distension. MUSCULOSKELETAL: Extremities without clubbing, cyanosis. Muscle wasting to all 4 extremities. NEUROLOGICAL: Eyes opening spontaneously, not to command, not tracking. PSYCHIATRIC: Unable to evaluate secondary to clinical condition. Appears calm. . Diagnostic Tests Laboratory Laboratory Tests Test 07/26/17 06:35 07/28/17 07:20 White Blood Count 10.6 TH/MM3 (4.0-11.0) 9.5 TH/MM3 (4.0-11.0) Red Blood Count 2.55 MIL/MM3 (4.00-5.30) 2.79 MIL/MM3 (4.00-5.30) Hemoglobin 8.3 GM/DL (11.6-15.3) 9.1 GM/DL (11.6-15.3) Hematocrit 24.7 % (35.0-46.0) 27.7 % (35.0-46.0) Mean Corpuscular Volume 96.9 FL (80.0-100.0) 99.2 FL (80.0-100.0) Mean Corpuscular Hemoglobin 32.8 PG (27.0-34.0) 32.7 PG (27.0-34.0) Mean Corpuscular Hemoglobin Concent 33.8 % (32.0-36.0) 33.0 % (32.0-36.0) Red Cell Distribution Width 17.3 % (11.6-17.2) 17.6 % (11.6-17.2) Platelet Count 269 TH/MM3 (150-450) 315 TH/MM3 (150-450) Mean Platelet Volume 9.9 FL (7.0-11.0) 9.5 FL (7.0-11.0) Neutrophils (%) (Auto) 73.5 % (16.0-70.0) 72.4 % (16.0-70.0) Lymphocytes (%) (Auto) 15.6 % (9.0-44.0) 17.4 % (9.0-44.0) Monocytes (%) (Auto) 4.7 % (0.0-8.0) 5.5 % (0.0-8.0) Eosinophils (%) (Auto) 4.1 % (0.0-4.0) 3.9 % (0.0-4.0) Basophils (%) (Auto) 2.1 % (0.0-2.0) 0.8 % (0.0-2.0) Neutrophils # (Auto) 7.8 TH/MM3 (1.8-7.7) 6.9 TH/MM3 (1.8-7.7) Lymphocytes # (Auto) 1.7 TH/MM3 (1.0-4.8) 1.7 TH/MM3 (1.0-4.8) Monocytes # (Auto) 0.5 TH/MM3 (0-0.9) 0.5 TH/MM3 (0-0.9) Eosinophils # (Auto) 0.4 TH/MM3 (0-0.4) 0.4 TH/MM3 (0-0.4) Basophils # (Auto) 0.2 TH/MM3 (0-0.2) 0.1 TH/MM3 (0-0.2) CBC Comment AUTO DIFF AUTO DIFF Differential Total Cells Counted 100 100 Neutrophils % (Manual) 62 % (16-70) 73 % (16-70) Band Neutrophils % 14 % (0-6) 4 % (0-6) Lymphocytes % 12 % (9-44) 12 % (9-44) Monocytes % 3 % (0-8) 4 % (0-8) Eosinophils % 7 % (0-4) 3 % (0-4) Basophils % 1 % (0-2) 2 % (0-2) Neutrophils # (Manual) 8.2 TH/MM3 (1.8-7.7) 7.5 TH/MM3 (1.8-7.7) Metamyelocytes 1 % (0-1) 1 % (0-1) Differential Comment FINAL DIFF MANUAL FINAL DIFF MANUAL Platelet Estimate NORMAL (NORMAL) NORMAL (NORMAL) Platelet Morphology Comment NORMAL (NORMAL) NORMAL (NORMAL) Red Cell Morphology Comment NORMAL (NORMAL) NORMAL (NORMAL) Blood Urea Nitrogen 37 MG/DL (7-18) 40 MG/DL (7-18) Creatinine 0.42 MG/DL (0.50-1.00) 0.47 MG/DL (0.50-1.00) Random Glucose 52 MG/DL (74-106) 127 MG/DL (74-106) Total Protein 6.2 GM/DL (6.4-8.2) 6.8 GM/DL (6.4-8.2) Albumin 2.0 GM/DL (3.4-5.0) 2.1 GM/DL (3.4-5.0) Calcium Level 8.7 MG/DL (8.5-10.1) 8.9 MG/DL (8.5-10.1) Alkaline Phosphatase 472 U/L (45-117) 507 U/L (45-117) Aspartate Amino Transf (AST/SGOT) 42 U/L (15-37) 43 U/L (15-37) Alanine Aminotransferase (ALT/SGPT) 51 U/L (10-53) 47 U/L (10-53) Total Bilirubin 0.2 MG/DL (0.2-1.0) 0.2 MG/DL (0.2-1.0) Sodium Level 139 MEQ/L (136-145) 145 MEQ/L (136-145) Potassium Level 4.2 MEQ/L (3.5-5.1) 4.6 MEQ/L (3.5-5.1) Chloride Level 107 MEQ/L (98-107) 111 MEQ/L (98-107) Carbon Dioxide Level 26.0 MEQ/L (21.0-32.0) 27.4 MEQ/L (21.0-32.0) Anion Gap 6 MEQ/L (5-15) 7 MEQ/L (5-15) Estimat Glomerular Filtration Rate 147 ML/MIN (>89) 130 ML/MIN (>89) Myelocytes 1 % (0-0) Result Diagram: 07/28/17 0720 07/28/17 0720 Microbiology Microbiology Date/Time Source Procedure Growth Status 07/25/17 10:35 Blood Peripheral Aerobic Blood Culture - Preliminary NO GROWTH IN 3 DAYS Resulted 07/25/17 10:35 Blood Peripheral Anaerobic Blood Culture - Preliminary NO GROWTH IN 3 DAYS Resulted 05/29/17 17:15 Stool Stool Stool Occult Blood (JEFFREY) - Final HEMOCCULT NEGATIVE Complete 07/21/17 11:25 Sputum Expectorated Sputum Gram Stain - Final Complete 07/21/17 11:25 Sputum Culture - Final Pseudomonas Aeruginosa Complete 07/24/17 01:15 Urine Catheterized Urine Urine Culture - Final Lea Glabrata Complete Procedures * 05/16/17 -PEG tube placement * 05/15/17 -tracheostomy placement * 05/08/17 -left-sided chest tube/pigtail * 04/30/17 -endotracheal intubation * 04/21/17 -Left hip reduction and intramedullary nail fixation . Assessment and Plan Disease Oriented Problem List: (1) Acute respiratory failure (2) Acute CVA (cerebrovascular accident) (3) Pneumonia (4) Atrial fibrillation with RVR (5) Hypertension (6) Hip fracture Symptom Scale: (1) Shortness of breath 0-10 Scale: Unable to quantify Comment: Currently trached on T piece. (2) Debility 0-10 Scale: Unable to quantify Comment: Progressive. (3) Pain 0-10 Scale: Unable to quantify Comment: Secondary to surgical intervention, bedbound status, prolonged hospitalization. Pertinent Non-Medical Issues Psychosocial: Patient is originally from [facility]. Residing in [facility] up until 2013 she moved to [place] to live with only daughter Trice. Patient is a , in 2006. Spiritual: No sabianism affiliation. Legal: No advance directives completed. Ethical issues impacting care: Patient unable to participating in medical decision-making secondary to clinical condition. Patient's daughter acting as healthcare proxy decision maker. . Important Contacts Daughter Norma Salvador . . Prognosis Mrs. Hein needs a 76-year-old female with a past medical history of hypertension, diabetes mellitus and prior CVA. Presented with left hip fracture , underwent ORIF. Clinical course complicated by large left MCA infarct with edema. Overall prognosis is poor for a meaningful neurological recovery or long -term survival given acute stroke, chronic ongoing comorbidities and advanced age. Patient appears hospice appropriate should family elect comfort-directed care. . Code Status: Full Code Plan * CODE STATUS: FULL CODE. * HEALTHCARE DECISION-MAKING: Patient not capacitated for medical decision- making given severe large stroke, not expected to regain capacity. No advance directives completed, patient is . As per [place] statute, healthcare proxy decision-making falls to patient's only daughter Trice Salvador. * GOALS OF CARE: 07/28/17 -Daughter Trice Salvador acting as healthcare proxy decision maker is electing to continue aggressive management to include full code. However, she has not decided regarding bronchoscopy. Asking to allow an additional 24 hours for reevaluation. * Telephone call to patient's daughter Trice Salvador. She reported that she has been receiving frequent medical updates from staff. Reports recent meeting in which patients clinical condition and prognosis was discussed. Reviewed with daughter that that no meaningful neurological recovery has been observed over 3 months post stroke. Review likely trajectory of illness to include continue progressive decline, high risk for further complications such as recurrent infections, bed sores and . Daughter reports that patient has made 'a significant improvement" since her stroke. Daughter further tells me that patient is more interactive, following commands when she is spoken in [place], "fixing her own hair" and "cleaning her own eyes". Daughter reports that patient "understands when talked to" which gives her hope of a full neurological recovery. Reviewed with daughter that a meaningful neurological recovery is not anticipated. Gently reviewed options of treatment to include continuation of aggressive management vs. transition to comfort-directed care with hospice. Hospice philosophy and benefits previously introduced. Daughter wishing to continue aggressive management. * SYMPTOMS: * = Shortness of breath, multifactorial. Secondary to altered mental status/CVA , pneumonia, lethargy. Now trached and on T piece. Sputum culture 07/21/17 growing Pseudomonas Aeruginosa. Sections disease and pulmonology following. Daughter wishing to allow another 24 hours before for evaluation for possible therapeutic bronchoscopy. = Pain, secondary to bedbound state, tracheostomy, pressure ulcers, prolonged hospitalization. Patient does not appear to be in pain at this time. = Debility, progressive. Likely to continue to worsen given recent acute stroke and prolonged hospitalization. * Difficult disposition, long-term plans for this patient are impacted by her psychosocial situation, no coverage/no payer source for long-term placement or rehab. Case discussed with block and case maker Trina. * Palliative care contact information has been provided to patient's daughter. * Palliative care will continue to follow-up as needed for further clarifications of goals of care as patient's clinical condition continues to evolve. Goals of therapy are established at this time. . Time Spent Total Floor Time (mins): 28 (Total time to include review medical records, physical exam, goals of care conversation with patient's daughter, case discussion with block and case maker Trina.) >50% Counseling/Coord of Care: Yes Attestation To help prompt me to consider important information that might be impacting today's encounter and assessment, information from prior notes written by myself or my colleagues may have been "brought forward" into today's note. My signature on this note, however, is an attestation that I personally performed the exam, history, and/or decision-making noted today, and, unless otherwise indicated, the interactions with patient, family, and staff as well as the review of records all occurred today. I also attest that the listed assessment and stated plan reflect my best clinical judgment today based on the combination of historical information, prior notes, and today's exam/ interactions. When time spent is documented, it refers only to time spent today by the signer, or if indicated, combined time spent today by collaborating physician/nurse practitioner. Ashly Steven Jul 28, 2017 15:04
--- NOTE | 2017-07-28 18:32 | HHI.PR ---
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 Looks around Small amount of trach secretions No distress DW RN at Objective Vital Signs Vital Signs Date Time Temp Pulse Resp B/P (MAP) Pulse Ox O2 Delivery O2 Flow Rate FiO2 07/28/17 17:19 97 Trach Collar 50 07/28/17 16:00 96.5 95 20 156/76 (102) 95 07/28/17 12:34 98 T-piece 7.00 50 07/28/17 12:34 98 T-piece 7.00 50 07/28/17 12:00 96.3 95 21 152/83 (106) 96 07/28/17 08:00 96.1 90 21 152/83 (106) 96 07/28/17 08:00 6.00 07/28/17 00:21 98.0 89 21 144/69 (94) 93 07/27/17 20:44 98.2 97 20 159/72 (101) 93 07/27/17 20:00 Trach Collar 8.00 40 07/27/17 19:52 93 T-piece 8.00 40 I/O 07/27/17 07/27/17 07/27/17 07/28/17 07/28/17 07/28/17 07:00 15:00 23:00 07:00 15:00 23:00 Intake Total 100 ml 483 ml 100 ml 100 ml Output Total 600 ml 650 ml 500 ml 0 ml 0 ml Balance -600 ml 100 ml -167 ml -500 ml 100 ml 100 ml Intake Oral 0 ml IV Total 100 ml 100 ml 100 ml Tube Feeding 483 ml Output Urine Total 600 ml 650 ml 500 ml Tube Feeding Residual Discard 0 ml 0 ml # Bowel Movements 2 2 2 Result Diagram: 07/28/1771907/28/17719 Objective Remarks GENERAL: Elderly female,NAD SKIN: Warm and dry. HEAD: Normocephalic. EYES: No scleral icterus. No injection or drainage. NECK: Supple, trachea midline. No JVD or lymphadenopathy. CARDIOVASCULAR: Regular rate and rhythm without murmurs, gallops, or rubs. RESPIRATORY: Breath sounds equal bilaterally. No accessory muscle use. GASTROINTESTINAL: Abdomen soft, non-tender, nondistended. MUSCULOSKELETAL: No cyanosis, or edema. BACK: Nontender without obvious deformity. No CVA tenderness. A/P Assessment and Plan RF,S/P Trach CVA Pneumonia PLAN: Cont Abx Aerosol nebs Supplement 02 Trach care TF Palliative care evaluating pt. Chris Rizo MD Jul 28, 2017 18:32
[2017-07-29] VITALS (7 sets, daily range): BP systolic 132–160; BP diastolic 74–79; PULSE 86–95; RESP 18–20; TEMP 95.6–98.9; O2SAT 95–98
[2017-07-29] MEDS: INSULIN ASPART SUPPLEMENTAL SCALE SQ SCH ×4 (00:29→18:00)
[2017-07-29] MEDS: CEFTOLOZANE-TAZOBACTAM INJ 1,500 MG in SODIUM CHLORIDE 0.9% INJ 100 ML IV SCH ×3 (00:39→17:30)
[2017-07-29] MEDS: HEPARIN SODIUM - SQ 10,000 UNITS/ML VIAL SQ SCH ×3 (05:38→20:17)
[2017-07-29] MEDS: ARTIFICIAL TEARS OPTH SOLN 15 ML BTL EACH EYE SCH ×3 (05:39→20:23)
--- NOTE | 2017-07-29 08:24 | HHI.FPPN ---
Subjective Remarks No acute events overnight. Afebrile. VSS. (Apple Winslow MD R1) Objective Vitals Vital Signs Date Time Temp Pulse Resp B/P (MAP) Pulse Ox O2 Delivery O2 Flow Rate FiO2 07/29/17 04:00 96.4 95 18 132/76 (94) 95 07/29/17 00:00 96.4 91 18 139/76 (97) 98 07/28/17 21:59 97 T-piece 6.00 50 07/28/17 21:49 97 Trach Collar 6.00 50 07/28/17 20:00 96.6 93 18 160/77 (104) 99 07/28/17 17:19 97 Trach Collar 50 07/28/17 16:00 96.5 95 20 156/76 (102) 95 07/28/17 12:34 98 T-piece 7.00 50 07/28/17 12:34 98 T-piece 7.00 50 07/28/17 12:00 96.3 95 21 152/83 (106) 96 I/O 07/28/17 07/28/17 07/28/17 07/29/17 07/29/17 07/29/17 07:00 15:00 23:00 07:00 15:00 23:00 Intake Total 100 ml 100 ml 984 ml Output Total 500 ml 0 ml 0 ml 850 ml Balance -500 ml 100 ml 100 ml 134 ml Intake Oral 0 ml IV Total 100 ml 100 ml 100 ml Tube Feeding 684 ml Other 200 ml Output Urine Total 500 ml 850 ml Tube Feeding Residual Discard 0 ml 0 ml # Voids 2 # Bowel Movements 2 2 (Apple Winslow MD R1) Result Diagram: 07/28/1771907/28/17719 Objective Remarks CONSTITUTIONAL/GEN: sleeping in bed with tracheostomy and PEG tubes in place, appears comfortable. HEAD: Normocephalic. Atraumatic. Right side facial droop. LUNGS: CTAB. Breathing spontaneously via T-tube. CARDIOVASCULAR: NRRR, normal S1/S2, no murmur GI/ABD: Soft, non-distended. No grimacing with palpation. Feeding tube insertion point with no redness, no distention NEURO: Eyes open with painful stimuli, occasionally tracks; Flaccid paralysis on the right side. MUSC: SCDs on bilateral lower extremities. Pedal pulses present. SKIN: Sacral pressure ulcer extends from anus to coccyx. Procedures ORIF 04/21/17 Intubation 04/30/17 Chest tube placement 05/07/17, removed 05/12/17 Trach placement 05/15/17 PEG tube placement 05/16/17 (Apple Winslow MD R1) A/P Assessment and Plan 76 y/o female with HTN, DM admitted for DKA and hip fracture s/p large CVA after ORIF she is currently stable with her current treatment but has had no meaningful functional recovery and do not anticipate any further neurologic recovery from here on. Dr. Harper, Dr. Tran and case management had a long discussion with the daughter on 07/23 and the patient's daughter is still hopeful for full recovery for her mom in spite of her mom's state of health since her CVA. DW the daughter that it is our belief based on her clinical picture that she will not make any sort of meaningful recovery and will remain on the trach and PEG for the rest of her life. DW the daughter due to her status that the patient will likely continue to decline and continue to acquire infections associated with this type of clinical picture including UTI, PNA, and sepsis. DW the daughter to consider the QOL that her mother would have wanted. We recommend that this patient receive Hospice services as we would not anticipate her living longer than 6 months. The daughter does not want to consider this at this time and she is the sole decision maker for this patient. In that case, we will continue to treat the patient aggressively as issues arise and honor the families wishes. A one-hour long family meeting was held (07/26) with patient's daughter Trice, Dr. Harper, Dr. Watts and patient's nurse to discuss patient's poor prognosis. We felt it was important to listen to daughter's perspective and address any questions or concerns she has about her mother's care. Patient goals of care were also discussed. Daughter still wants aggressive treatment. Daughter was informed that from our medical standpoint we do not anticipated any meaningful recovery from her mother's current baseline. Neither do we anticipate for mother to be able to get off PEG tube feeds and trach. However, we will continue to honor daughter's wishes and provide aggressive medical care. ID and pulmonology are actively following. Patient is currently being treated for MDR pseudomonas pna and pulmonology recommended bronchoscopy. Risk and benefits of the procedure were explained and discussed with daughter. The option for her mother not to have the bronchoscopy and to instead continue treatment with antibiotics was also discussed. She is currently unsure about the procedure. She was advised to take time to think about her decision keeping in mind what her mother's wishes would be. (Apple Winslow MD R1) Attending Attestation Patient seen and examined. Case reviewed and discussed with the resident team. Agree with plan of care as discussed with me and documented in the resident note. (Adali Meade MD) Problem List: (1) Chronic respiratory failure ICD Codes: J96.10 - Chronic respiratory failure, unspecified whether with hypoxia or hypercapnia Plan: At this point, respiratory failure is chronic on T-tube Hospital Acquired PNA on 07/21 -- repeat CXR on 07/23 does show improvement. sputum culture positive for Multi drug resistant pseudomonas, blood cultures so far negative. blood cx from 07/21 no growth (final) Legionella and S pneumonia urine antigen negative -ID following (Dr. Saleh), recommendations appreciated - Continue ceftolozane/ tazobactam -Pulmonology following (Dr. Rizo), recommended bronchoscopy procedure - Dr. Tran discussed with patient's daughter on 07/27, explained that currently there is no status change with antibiotics alone. Reviewed substantial risks of procedure given all this patient's medical comorbidities, but also potential benefits. Advised daughter that if she at any point decides to proceed with bronchoscopy to call patient's nurse so message can be sent to Dr. Rizo. Infection History Pseudomonas hospital-acquired pneumonia - active MSSA bacteremia - resolved Serratia/staph aureus pneumonia - resolved C glabrata UTI - resolved Citrobacter UTI - resolved Serratia/MSSA sputum VAP - resolved Antibiotic History Cefazolin: 04/21-04/22, 05/15-05/16 Cefepime: 04/30-05/04, 05/27-06/03 Ceftrioxone 05/26-05/27 Erythromycin 06/16-06/18, 06/19 Gentamicin 04/21 vancomycin 04/30-05/04, 06/21-06/23 Zosyn 07/21 - 07/25 Azithromycin 07/21 - 07/25 Fluconazole 04/29 - ; 07/26 ceftolozane/ tazobactam 07/25 - present (2) Acute CVA (cerebrovascular accident) ICD Codes: I63.9 - Cerebral infarction, unspecified Status: Chronic Plan: Neurologically stable, no improvement. Overall prognosis is poor. Persistent oxygen requirement See above note about meeting with Daughter on 07/23 and 07/26. Daughter still desires full code and aggressive care -Titrate oxygen via trach to maintain O2 saturation above 92% -Continue tube fees at 45ml/hr 24 hours per day thru peg Tube -Neurosurgery, neurology and palliative care have all been consulted in the past and agree with very poor prognosis with no meaningful neurologic recovery. History and imaging: Patient found minimally responsive with neurological deficits around 0820 04/24. Stat CT of head was ordered, which showed large left MCA infarct. Diffuse edema throughout the left MCA distribution, suggested completed infarct. This was discussed and was not a candidate for intracranial intervention. CT (04/30): Reduction in midline shift to 11mm. Unchanged large left MCA infarction. CT head (05/06) shows: Evolving large left-sided MCA territory infarct with minimally improved [id number] subfalcine shift. No intercurrent hemorrhage or other acute abnormality. Echocardiogram- The left ventricular systolic function is low normal with an estimated ejection fraction in the range of 50-55%. Mild concentric left ventricular hypertrophy. Normal left ventricular size. Ynkla-pz-fdzk mitral valve regurgitation. Carotid Artery US- No hemodynamically significant carotid stenosis (3) UTI (urinary tract infection) ICD Codes: N39.0 - Urinary tract infection, site not specified Status: Resolved Plan: UCx on 07/15 positive for E coli Repeat UCx on 07/20 positive for C. Freundii UCx 07/24 grew only yeast - See above for antibiotic history and coverage (4) Sacral decubitus ulcer ICD Codes: L89.159 - Pressure ulcer of sacral region, unspecified stage Status: Chronic Plan: Patient with Stage IV pressure injury over the coccyx -Wound care consult appreciated: 1. Please cleanse coccyx wound every 3 days and PRN for soiling. 2. Apply Calcium Alginate to open wound bed. 3. Secure with bordered gauze every 3 days and PRN for soiling. 4. Continue to turn patient every 2 hours or PRN for comfort. 5. Use one ultrasorb for moisture. Please use flat sheet for repositioning. (5) Anemia ICD Codes: D64.9 - Anemia, unspecified Status: Chronic Plan: s/p 1u of PRBC on 05/28/17. Hgb stable Hemoccult negative on 05/29 - monitor H&H periodically (6) Urinary retention ICD Codes: R33.9 - Retention of urine, unspecified Status: Chronic Plan: - Leavitt cath done because patient was retaining urine with intermittent cath's - Cath last changed 07/15, pt afebrile - Urine output WNL (7) Type 2 diabetes mellitus ICD Codes: E11.9 - Type 2 diabetes mellitus without complications Status: Chronic Plan: - continue to monitor BSG -Decreased Levemir to 15 units q 12 due to BG range below goal. -Will continue to monitor -BS goal 140-180 -Discontinued SSI on 07/16 -AccuCheks QShift -Glucerna for PEG tube feedings @ 45 ml/hr -Glucagon 1 mg per PRN protocol for hypoglycemia BS <70mg/dL History Admitted for DKA which has now resolved. Hemoglobin A1C is 12.9. Diabetes Type II is uncontrolled. (8) Hip fracture ICD Codes: S72.009A - Fracture of unspecified part of neck of unspecified femur , initial encounter for closed fracture Status: Resolved Plan: S/P left hip reduction and intramedullary nail fixation on 04-21-17 -c/w Calcium/Vitamin D (9) Hypertension ICD Codes: I10 - Essential (primary) hypertension Status: Chronic Plan: -Antihypertensives to keep SBP<160, as per critical care recs -c/w clonidine 0.1mg Q6h PRN SBP >160 -c/w lisinopril 20mg Q12h po Echocardiogram 04/24 - EF 50 to 55%. Mild concentric LVH. (10) Fluids, Electrolytes, and Nutrition Status: Acute Plan: Fluids: through PEG tube Electrolyte: on electrolyte protocol Nutrition: continuous Glucerna tube feeds and free water, pump at 45mls/hr, tolerating feeds well, no residual. Protein 1 pack TID. Supplements: calcium TID and vit D3 QD DVT ppx: SCDs/heparin CVA ppx: aspirin 325 mg QD GI ppx: Lansoprazole 30mg qd via NG Colace, dulcolax PRN (Apple Winslow MD R1) Problem Qualifiers (1) Chronic respiratory failure: Qualified Codes: J96.11 - Chronic respiratory failure with hypoxia (2) UTI (urinary tract infection): Qualified Codes: N39.0 - Urinary tract infection, site not specified (3) Sacral decubitus ulcer: Qualified Codes: L89.154 - Pressure ulcer of sacral region, stage 4 (4) Type 2 diabetes mellitus: Qualified Codes: E11.9 - Type 2 diabetes mellitus without complications (5) Hip fracture: (6) Hypertension: Qualified Codes: I10 - Essential (primary) hypertension Apple Winslow MD R1 Jul 29, 2017 08:24 Adali Meade MD Jul 29, 2017 12:16
[2017-07-29] MEDS: BENEPROTEIN POWDER 1 PACK G-TUBE SCH ×3 (08:44→17:33)
[2017-07-29] MEDS: LANSOPRAZOLE SOLUTAB 30 MG TAB NG SCH (08:45)
[2017-07-29] MEDS: ASPIRIN 325 MG TAB DOBHOFF SCH (08:45)
[2017-07-29] MEDS: CHOLECALCIFEROL (VIT D3) 5000 UNIT CAP PO SCH (08:45)
[2017-07-29] MEDS: CALCIUM/VITAMIN D 250 MG/125 U TAB PO SCH ×3 (08:46→17:30)
[2017-07-29] MEDS: INSULIN DETEMIR 100 UNITS/ML VIAL SQ SCH ×2 (08:47→20:23)
[2017-07-29] MEDS: LISINOPRIL 10 MG TAB PO SCH ×2 (08:47→20:18)
[2017-07-29] MEDS: POLYETHYLENE GLYCOL 17 GM PKG PEG SCH (08:48)
[2017-07-29] MEDS: SODIUM CHLORIDE 0.9% FLUSH 5 ML FLUSH IV FLUSH SCH ×2 (08:49→20:23)
[2017-07-29 10:13] LABS: AUTOMATED NEUTROPHIL # 6.1 TH/MM3 (1.8-7.7); BASOPHIL # 0.1 TH/MM3 (0-0.2); BASOPHIL % 1.1 % (0.0-2.0); EOSINOPHIL # 0.4 TH/MM3 (0-0.4); EOSINOPHIL % 4.4 % (0.0-4.0); LYMPH % 23.7 % (9.0-44.0); LYMPHOCYTE # 2.2 TH/MM3 (1.0-4.8); MEAN CELL VOLUME 99.9 FL (80.0-100.0); MEAN CORPUSCULAR HEMOGLOBIN 32.2 PG (27.0-34.0); MEAN CORPUSCULAR HGB CONC 32.2 % (32.0-36.0); MEAN PLATELET VOLUME 8.7 FL (7.0-11.0); MONOCYTE # 0.6 TH/MM3 (0-0.9); NEUT % 64.8 % (16.0-70.0); PLATELET COUNT 343 TH/MM3 (150-450); RED CELL DISTRIBUTION WIDTH 17.5 % (11.6-17.2); WHITE BLOOD COUNT 9.3 TH/MM3 (4.0-11.0)
[2017-07-29 10:24] LABS: BICARBONATE 27.9 MEQ/L (21.0-32.0); CALCIUM 9.1 MG/DL (8.5-10.1); CREATININE 0.4 MG/DL (0.50-1.00)
[2017-07-29 11:02] LABS: BANDS 5 % (0-6); LYMPHOCYTES 17 % (9-44); MONOCYTES 1 % (0-8); NEUTROPHIL # MANUAL DIFF 6.9 TH/MM3 (1.8-7.7); POLYS (SEG NEUTROPHILS) 69 % (16-70)
--- NOTE | 2017-07-29 13:56 | HHI.IDPN ---
Subjective Subjective Remarks is a 76 y/o CF with PMHx of stroke, diabetes mellitus who was admitted with DKA and a hip fracture for which she underwent ORIF on 04/21. While in hospital recovering, patient developed altered mental status. Due to worsening mental status a stroke alert was called. Head CT showed large left MCA territory ischemic infarct with edema. Patient was transferred to the ICU by family medicine service and critical care consult was requested. At the time of evaluation in [facility], patient was opening her eyes however not following commands and had a dense right hemiplegia. Patient was also evaluated by Dr. Malave from neurology. At baseline, the patient lives with her daughter since her stroke in 2014 and does ambulate however has been having problems with memory and incontinence as well as gait difficulties. She does not feel patient would want intubation or tracheostomy or PEG tube. On 05/01/17 patient was intubated for severe hypoxemic respiratory failure from aspiration pneumonia. She also had a temp of 101 F. Blood culture and sputum culture with staph aureus sputum also growing GNR, WBC count 22,000 now indicating worsening sepsis. 05/06/[address] head with massive left MCA infarction and > 1 cm shift in right handed woman. Meanwhile patient is also being treated for C.glabrata UTI. At the time of my evaluation, patient is in [facility] on ventilator. She spontaneously opens eyes, did not follow commands for me. She underwent a CT A/ P which shows a left side pneumothorax. is placing a pigtail chest tube. She has a moser in place but no central line. ID is consulted for evaluation and Mment of Sepsis, MSSA and aspiration pneumonia, C.glabrata UTI. Overnight events reviewed with RN. No fevers Secretions biggs small to moderate. PEG tube and trach site ok. Sitting in chair on T piece. Does not track or follow commands. Sitting in a chair, opens eyes but no meaningful interaction. UO ok. Antibiotics Zerbaxa IV Lines Line sites with no e.o infection. Past Medical History reviewed Allergies: Coded Allergies: No Known Allergies (Unverified , 04/20/17) Objective . Vital Signs Date Time Temp Pulse Resp B/P (MAP) Pulse Ox O2 Delivery O2 Flow Rate FiO2 07/29/17 12:00 97.8 93 20 157/77 (103) 95 07/29/17 10:49 97 T-piece 50 07/29/17 08:00 5.00 07/29/17 08:00 96.9 92 19 160/74 (102) 96 07/29/17 04:00 96.4 95 18 132/76 (94) 95 07/29/17 00:00 96.4 91 18 139/76 (97) 98 07/28/17 21:59 97 T-piece 6.00 50 07/28/17 21:49 97 Trach Collar 6.00 50 07/28/17 20:00 96.6 93 18 160/77 (104) 99 07/28/17 17:19 97 Trach Collar 50 07/28/17 16:00 96.5 95 20 156/76 (102) 95 07/29/17 07/29/17 07/30/17 15:00 23:00 07:00 Intake Total 0 ml Balance 0 ml Intake Oral 0 ml . Laboratory Tests Test 07/28/17 07:20 07/29/17 09:51 White Blood Count 9.5 TH/MM3 9.3 TH/MM3 Red Blood Count 2.79 MIL/MM3 2.80 MIL/MM3 Hemoglobin 9.1 GM/DL 9.0 GM/DL Hematocrit 27.7 % 28.0 % Mean Corpuscular Volume 99.2 FL 99.9 FL Mean Corpuscular Hemoglobin 32.7 PG 32.2 PG Mean Corpuscular Hemoglobin Concent 33.0 % 32.2 % Red Cell Distribution Width 17.6 % 17.5 % Platelet Count 315 TH/MM3 343 TH/MM3 Mean Platelet Volume 9.5 FL 8.7 FL Neutrophils (%) (Auto) 72.4 % 64.8 % Lymphocytes (%) (Auto) 17.4 % 23.7 % Monocytes (%) (Auto) 5.5 % 6.0 % Eosinophils (%) (Auto) 3.9 % 4.4 % Basophils (%) (Auto) 0.8 % 1.1 % Neutrophils # (Auto) 6.9 TH/MM3 6.1 TH/MM3 Lymphocytes # (Auto) 1.7 TH/MM3 2.2 TH/MM3 Monocytes # (Auto) 0.5 TH/MM3 0.6 TH/MM3 Eosinophils # (Auto) 0.4 TH/MM3 0.4 TH/MM3 Basophils # (Auto) 0.1 TH/MM3 0.1 TH/MM3 CBC Comment AUTO DIFF AUTO DIFF Differential Total Cells Counted 100 100 Neutrophils % (Manual) 73 % 69 % Band Neutrophils % 4 % 5 % Lymphocytes % 12 % 17 % Monocytes % 4 % 1 % Eosinophils % 3 % 8 % Basophils % 2 % Neutrophils # (Manual) 7.5 TH/MM3 6.9 TH/MM3 Metamyelocytes 1 % Myelocytes 1 % Differential Comment FINAL DIFF MANUAL FINAL DIFF MANUAL Platelet Estimate NORMAL NORMAL Platelet Morphology Comment NORMAL NORMAL Red Cell Morphology Comment NORMAL Laboratory Tests Test 07/28/17 07:20 07/29/17 09:51 Blood Urea Nitrogen 40 MG/DL 42 MG/DL Creatinine 0.47 MG/DL 0.40 MG/DL Random Glucose 127 MG/DL 171 MG/DL Total Protein 6.8 GM/DL Albumin 2.1 GM/DL Calcium Level 8.9 MG/DL 9.1 MG/DL Alkaline Phosphatase 507 U/L Aspartate Amino Transf (AST/SGOT) 43 U/L Alanine Aminotransferase (ALT/SGPT) 47 U/L Total Bilirubin 0.2 MG/DL Sodium Level 145 MEQ/L 143 MEQ/L Potassium Level 4.6 MEQ/L 4.8 MEQ/L Chloride Level 111 MEQ/L 109 MEQ/L Carbon Dioxide Level 27.4 MEQ/L 27.9 MEQ/L Anion Gap 7 MEQ/L 6 MEQ/L Estimat Glomerular Filtration Rate 130 ML/MIN 156 ML/MIN Imaging Last Impressions Chest X-Ray 05/11/17 0000 Signed Impressions: Service Date/Time: Thursday, May 11, 2017 09:37 - CONCLUSION: 1. Small right pleural effusion. 2. Bilateral mid and lower lung zone predominant air space opacity could represent pulmonary edema given the appearance and distribution. Obdulio Sam MD Abdomen X-Ray 05/10/17 0000 Signed Impressions: Service Date/Time: Wednesday, May 10, 2017 22:08 - CONCLUSION: Tip of Dobbhoff catheter is in the antrum of the stomach. Sage Adler MD Gall Bladder Ultrasound 05/08/17 0000 Signed Impressions: Service Date/Time: May 08:23 - CONCLUSION: Focally unremarkable appearance of the gallbladder Obdulio Chun MD Abdomen/Pelvis CT 05/07/17 0000 Signed Impressions: Service Date/Time: Sunday, May 07, 2017 13:23 - CONCLUSION: 1. Large left pneumothorax. 2. Bilateral lower lobe consolidation and bilateral moderate size pleural effusions. 3. Significant soft tissue thickening of the right lateral chest wall and left gluteus muscle. 4. Mild ascites. The findings were called to Dr. Carney. Deangelo Zamora MD Head CT 05/06/17 0000 Signed Impressions: Service Date/Time: Saturday, May 06, 2017 04:18 - CONCLUSION: 1. Evolving large left-sided MCA territory infarct with minimally improved vyaw-rw-mhzdh subfalcine shift. 2. No intercurrent hemorrhage or other acute abnormality. Alejo De La Vega MD Hip and Pelvis X-Ray 05/05/17 0000 Signed Impressions: Service Date/Time: Friday, May 05, 2017 10:59 - CONCLUSION: Left proximal femur trochanteric/subtrochanteric fracture lucency visualized. Postoperative changes. Choco Mustafa MD Chest CT 04/30/17 0000 Signed Impressions: Service Date/Time: Sunday, April 30, 2017 09:20 - CONCLUSION: 1. Bilateral pulmonary infiltrates more pronounced within the lower lobes with tiny bilateral pleural effusions. Material seen filling the lower lobe bronchi bilaterally either related to purulent material or perhaps mucus plugging. Deangelo Wren Jr., MD Carotid Artery Ultrasound 04/24/17 0000 Signed Impressions: Service Date/Time: April 09:45 - CONCLUSION: 1. No hemodynamically significant carotid artery stenosis. Arnie Middleton MD Hip X-Ray 04/21/17 0000 Signed Impressions: Service Date/Time: Friday, April 21, 2017 11:36 - CONCLUSION: Fluoroscopic images during placement of intramedullary siomara left femur. Benja Ramsey MD Physical Exam GENERAL: Well-developed patient, in no apparent distress. SKIN: No rashes, ecchymoses or lesions. Cool and dry. EYES: Pupils equal round and reactive. Extraocular motions intact. No scleral icterus. No injection or drainage. ENT: NAD NECK: Trachea midline. Supple, nontender, no meningeal signs. CARDIOVASCULAR: Regular rate and rhythm without murmurs, gallops, or rubs. RESPIRATORY: Clear to auscultation. Breath sounds equal bilaterally. GASTROINTESTINAL: Abdomen soft, distended. No tenderness. MUSCULOSKELETAL: Pedal edema. Generalized anasarca. NEUROLOGICAL:. Opens eyes, not tracking, Does not track or follow commands Psych: could not be assessed. IV line sites with no e.o infection. Assessment & Plan Remarks Sepsis MDR PSAE pneumonia Left MCA infarction Recs: Continue Zerbaxa IV (ASP: MDR PSAE pneumonia) d/w : patients daughter refused bronchoscopy at present time. Palliative care discussions ongoing. Agree with him about diuresis. Repeat CXR today. Follow cultures Follow clinically. liliw resident. Jane Saleh MD Jul 29, 2017 13:56
--- NOTE | 2017-07-29 14:41 | RADRPT ---
EXAM DATE/TIME: 07/29/2017 14:03 [facility] COMPARISON: CHEST SINGLE AP, July 25, 2017, 3:08. INDICATIONS : Shortness of breath. Pneumonia. MEDICAL HISTORY : Cerebrovascular disease. Hypertension. SURGICAL HISTORY : None. ENCOUNTER: Subsequent ACUITY: 1 day PAIN SCORE: Non-responsive. LOCATION: Bilateral chest FINDINGS: A single view of the chest demonstrates the lungs to be symmetrically with diffuse bilateral airspace disease and possible slight interval worsening on the right. Blunting of the costophrenic angles may represent associated effusion, especially on the right side. Heart borders are difficult to identify . Tracheostomy tube is stable in position with the tip at the clavicular heads. CONCLUSION: 1. Diffuse bilateral airspace disease with interval worsening on the right. This may represent an enl arging right-sided effusion. 2. Stable position of the tracheostomy tube. Ananda Oneill MD on July 29, 2017 at 14:38 Board Certified Radiologist. This report was verified electronically.
[2017-07-29] MEDS ORDERED: FUROSEMIDE 40 MG/5 ML UNIT DOSE CUP NG ONE (16:00)
--- NOTE | 2017-07-29 19:00 | HHI.PR ---
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 Looks around Small amount of trach secretions No distress DW Objective Vital Signs Vital Signs Date Time Temp Pulse Resp B/P (MAP) Pulse Ox O2 Delivery O2 Flow Rate FiO2 07/29/17 16:00 98.9 89 19 159/79 (105) 96 07/29/17 12:00 97.8 93 20 157/77 (103) 95 07/29/17 10:49 97 T-piece 50 07/29/17 08:00 5.00 07/29/17 08:00 96.9 92 19 160/74 (102) 96 07/29/17 04:00 96.4 95 18 132/76 (94) 95 07/29/17 00:00 96.4 91 18 139/76 (97) 98 07/28/17 21:59 97 T-piece 6.00 50 07/28/17 21:49 97 Trach Collar 6.00 50 07/28/17 20:00 96.6 93 18 160/77 (104) 99 I/O 07/28/17 07/28/17 07/28/17 07/29/17 07/29/17 07/29/17 07:00 15:00 23:00 07:00 15:00 23:00 Intake Total 100 ml 100 ml 984 ml 0 ml 0 ml Output Total 500 ml 0 ml 0 ml 850 ml 300 ml Balance -500 ml 100 ml 100 ml 134 ml 0 ml -300 ml Intake Oral 0 ml 0 ml 0 ml IV Total 100 ml 100 ml 100 ml Tube Feeding 684 ml Other 200 ml Output Urine Total 500 ml 850 ml 300 ml Tube Feeding Residual Discard 0 ml 0 ml # Voids 2 # Bowel Movements 2 2 1 Result Diagram: 07/29/1795007/29/17950 Objective Remarks GENERAL: Elderly female,NAD SKIN: Warm and dry. HEAD: Normocephalic. EYES: No scleral icterus. No injection or drainage. NECK: Supple, trachea midline. No JVD or lymphadenopathy. CARDIOVASCULAR: Regular rate and rhythm without murmurs, gallops, or rubs. RESPIRATORY: Breath sounds equal bilaterally. No accessory muscle use. GASTROINTESTINAL: Abdomen soft, non-tender, nondistended. MUSCULOSKELETAL: No cyanosis, or edema. BACK: Nontender without obvious deformity. No CVA tenderness. A/P Assessment and Plan RF,S/P Trach CVA Pneumonia PLAN: Cont Abx Aerosol nebs Supplement 02 Trach care TF Palliative care evaluating pt. No bronch at this time Will Try Lasix for fluid overload Chris Rizo MD Jul 29, 2017 19:00
[2017-07-30] VITALS: BP 127/72; PULSE 82; RESP 19; TEMP 95.4; O2SAT 96
[2017-07-30] MEDS: INSULIN ASPART SUPPLEMENTAL SCALE SQ SCH ×4 (01:32→18:00)
[2017-07-30] MEDS: CEFTOLOZANE-TAZOBACTAM INJ 1,500 MG in SODIUM CHLORIDE 0.9% INJ 100 ML IV SCH ×3 (01:33→16:33)
[2017-07-30] MEDS: ARTIFICIAL TEARS OPTH SOLN 15 ML BTL EACH EYE SCH ×3 (06:15→19:46)
[2017-07-30] MEDS: HEPARIN SODIUM - SQ 10,000 UNITS/ML VIAL SQ SCH ×3 (06:16→19:46)
[2017-07-30 06:56] LABS: HEMATOCRIT 27.5 % (35.0-46.0); HEMOGLOBIN 9.1 GM/DL (11.6-15.3); MEAN CELL VOLUME 99.4 FL (80.0-100.0); MEAN CORPUSCULAR HEMOGLOBIN 32.9 PG (27.0-34.0); MEAN PLATELET VOLUME 9.1 FL (7.0-11.0); PLATELET COUNT 294 TH/MM3 (150-450); RED BLOOD COUNT 2.76 MIL/MM3 (4.00-5.30); RED CELL DISTRIBUTION WIDTH 17.1 % (11.6-17.2); WHITE BLOOD COUNT 8.1 TH/MM3 (4.0-11.0)
[2017-07-30 07:14] LABS: CALCIUM 8.8 MG/DL (8.5-10.1); CREATININE 0.36 MG/DL (0.50-1.00)
[2017-07-30 08:00] VITALS: BP 168/82; PULSE 84; RESP 19; TEMP 96.9; O2SAT 96
[2017-07-30] MEDS: INSULIN DETEMIR 100 UNITS/ML VIAL SQ SCH ×2 (08:40→20:05)
[2017-07-30] MEDS: CHOLECALCIFEROL (VIT D3) 5000 UNIT CAP PO SCH (08:41)
[2017-07-30] MEDS: LANSOPRAZOLE SOLUTAB 30 MG TAB NG SCH (08:41)
[2017-07-30] MEDS: CALCIUM/VITAMIN D 250 MG/125 U TAB PO SCH ×3 (08:41→18:26)
[2017-07-30] MEDS: POLYETHYLENE GLYCOL 17 GM PKG PEG SCH (08:41)
[2017-07-30] MEDS: BENEPROTEIN POWDER 1 PACK G-TUBE SCH ×3 (08:42→18:00)
[2017-07-30] MEDS: ASPIRIN 325 MG TAB DOBHOFF SCH (08:42)
[2017-07-30] MEDS: LISINOPRIL 10 MG TAB PO SCH ×2 (08:42→19:45)
[2017-07-30] MEDS: SODIUM CHLORIDE 0.9% FLUSH 5 ML FLUSH IV FLUSH SCH ×2 (09:00→19:45)
[2017-07-30 12:00] VITALS: BP 154/76; PULSE 88; RESP 17; TEMP 95.2; O2SAT 96
--- NOTE | 2017-07-30 12:05 | HHI.FPPN ---
Subjective Remarks No acute events overnight. Afebrile. VSS. Patient sitting up in chair. Looking around room. Objective Vitals Vital Signs Date Time Temp Pulse Resp B/P (MAP) Pulse Ox O2 Delivery O2 Flow Rate FiO2 07/30/17 08:00 96.9 84 19 168/82 (110) 96 07/30/17 00:00 95.4 82 19 127/72 (90) 96 07/29/17 20:00 95.6 86 19 148/75 (99) 96 07/29/17 16:00 98.9 89 19 159/79 (105) 96 07/29/17 12:00 97.8 93 20 157/77 (103) 95 I/O 07/29/17 07/29/17 07/29/17 07/30/17 07/30/17 07/30/17 07:00 15:00 23:00 07:00 15:00 23:00 Intake Total 984 ml 0 ml 100 ml 815 ml Output Total 850 ml 300 ml 1400 ml Balance 134 ml 0 ml -200 ml -585 ml Intake Oral 0 ml 0 ml 0 ml 0 ml IV Total 100 ml 100 ml 100 ml Tube Feeding 684 ml 715 ml Other 200 ml Output Urine Total 850 ml 300 ml 1400 ml # Bowel Movements 1 2 Result Diagram: 07/30/1761907/30/17619 Objective Remarks CONSTITUTIONAL/GEN: sitting up in chair with tracheostomy and PEG tubes in place , appears comfortable. HEAD: Normocephalic. Atraumatic. Right side facial droop. LUNGS: Decreased sounds in b/l bases, Breathing spontaneously via T-tube. CARDIOVASCULAR: NRRR, normal S1/S2, no murmur GI/ABD: Soft, non-distended. No grimacing with palpation. Feeding tube insertion point with no redness, no distention NEURO: Eyes open, occasionally tracks; Flaccid paralysis on the right side. MUSC: SCDs on bilateral lower extremities. Pedal pulses present. SKIN: Sacral pressure ulcer extends from anus to coccyx. Procedures ORIF 04/21/17 Intubation 04/30/17 Chest tube placement 05/07/17, removed 05/12/17 Trach placement 05/15/17 PEG tube placement 05/16/17 A/P Assessment and Plan 76 y/o female with HTN, DM admitted for DKA and hip fracture s/p large CVA after ORIF she is currently stable with her current treatment but has had no meaningful functional recovery and do not anticipate any further neurologic recovery from here on. Dr. Harper, Dr. Tran and case management had a long discussion with the daughter on 07/23 and the patient's daughter is still hopeful for full recovery for her mom in spite of her mom's state of health since her CVA. DW the daughter that it is our belief based on her clinical picture that she will not make any sort of meaningful recovery and will remain on the trach and PEG for the rest of her life. DW the daughter due to her status that the patient will likely continue to decline and continue to acquire infections associated with this type of clinical picture including UTI, PNA, and sepsis. DW the daughter to consider the QOL that her mother would have wanted. We recommend that this patient receive Hospice services as we would not anticipate her living longer than 6 months. The daughter does not want to consider this at this time and she is the sole decision maker for this patient. In that case, we will continue to treat the patient aggressively as issues arise and honor the families wishes. A one-hour long family meeting was held (07/26) with patient's daughter Trice, Dr. Harpre, Dr. Watts and patient's nurse to discuss patient's poor prognosis. We felt it was important to listen to daughter's perspective and address any questions or concerns she has about her mother's care. Patient goals of care were also discussed. Daughter still wants aggressive treatment. Daughter was informed that from our medical standpoint we do not anticipated any meaningful recovery from her mother's current baseline. Neither do we anticipate for mother to be able to get off PEG tube feeds and trach. However, we will continue to honor daughter's wishes and provide aggressive medical care. ID and pulmonology are actively following. Patient is currently being treated for MDR pseudomonas pna and pulmonology recommended bronchoscopy. Risk and benefits of the procedure were explained and discussed with daughter. The option for her mother not to have the bronchoscopy and to instead continue treatment with antibiotics was also discussed. She is currently unsure about the procedure. She was advised to take time to think about her decision keeping in mind what her mother's wishes would be. Problem List: (1) Chronic respiratory failure ICD Codes: J96.10 - Chronic respiratory failure, unspecified whether with hypoxia or hypercapnia Plan: At this point, respiratory failure is chronic on T-tube Hospital Acquired PNA on 07/21 -- repeat CXR on 07/23 does show improvement. sputum culture positive for Multi drug resistant pseudomonas, blood cultures so far negative. blood cx from 07/21 no growth (final) Legionella and S pneumonia urine antigen negative -ID following (Dr. Saleh), recommendations appreciated - Continue ceftolozane/ tazobactam - Continue to follow cultures -Pulmonology following (Dr. Rizo), recommended bronchoscopy procedure, daughter refused at this time -CXR 07/29 revealed diffuse bilateral airspace diase with interval worsening on the right, lasix 40mg given once for fluid overload Infection History Pseudomonas hospital-acquired pneumonia - active MSSA bacteremia - resolved Serratia/staph aureus pneumonia - resolved C glabrata UTI - resolved Citrobacter UTI - resolved Serratia/MSSA sputum VAP - resolved Antibiotic History Cefazolin: 04/21-04/22, 05/15-05/16 Cefepime: 04/30-05/04, 05/27-06/03 Ceftrioxone 05/26-05/27 Erythromycin 06/16-06/18, 06/19 Gentamicin 04/21 vancomycin 04/30-05/04, 06/21-06/23 Zosyn 07/21 - 07/25 Azithromycin 07/21 - 07/25 Fluconazole 04/29 - ; 07/26 ceftolozane/ tazobactam 07/25 - present (2) Acute CVA (cerebrovascular accident) ICD Codes: I63.9 - Cerebral infarction, unspecified Status: Chronic Plan: Neurologically stable, no improvement. Overall prognosis is poor. Persistent oxygen requirement See above note about meeting with Daughter on 07/23 and 07/26. Daughter still desires full code and aggressive care -Titrate oxygen via trach to maintain O2 saturation above 92% -Continue tube fees at 45ml/hr 24 hours per day thru peg Tube -Neurosurgery, neurology and palliative care have all been consulted in the past and agree with very poor prognosis with no meaningful neurologic recovery. History and imaging: Patient found minimally responsive with neurological deficits around 0820 04/24. Stat CT of head was ordered, which showed large left MCA infarct. Diffuse edema throughout the left MCA distribution, suggested completed infarct. This was discussed and was not a candidate for intracranial intervention. CT (04/30): Reduction in midline shift to 11mm. Unchanged large left MCA infarction. CT head (05/06) shows: Evolving large left-sided MCA territory infarct with minimally improved yhtq-[id number] subfalcine shift. No intercurrent hemorrhage or other acute abnormality. Echocardiogram- The left ventricular systolic function is low normal with an estimated ejection fraction in the range of 50-55%. Mild concentric left ventricular hypertrophy. Normal left ventricular size. Ycjey-ks-wriq mitral valve regurgitation. Carotid Artery US- No hemodynamically significant carotid stenosis (3) UTI (urinary tract infection) ICD Codes: N39.0 - Urinary tract infection, site not specified Status: Resolved Plan: UCx on 07/15 positive for E coli Repeat UCx on 07/20 positive for C. Freundii UCx 07/24 grew only yeast - See above for antibiotic history and coverage (4) Sacral decubitus ulcer ICD Codes: L89.159 - Pressure ulcer of sacral region, unspecified stage Status: Chronic Plan: Patient with Stage IV pressure injury over the coccyx -Wound care consult appreciated: 1. Please cleanse coccyx wound every 3 days and PRN for soiling. 2. Apply Calcium Alginate to open wound bed. 3. Secure with bordered gauze every 3 days and PRN for soiling. 4. Continue to turn patient every 2 hours or PRN for comfort. 5. Use one ultrasorb for moisture. Please use flat sheet for repositioning. (5) Anemia ICD Codes: D64.9 - Anemia, unspecified Status: Chronic Plan: s/p 1u of PRBC on 05/28/17. Hgb stable Hemoccult negative on 05/29 - monitor H&H periodically (6) Urinary retention ICD Codes: R33.9 - Retention of urine, unspecified Status: Chronic Plan: - Leavitt cath done because patient was retaining urine with intermittent cath's - Cath last changed 07/15, pt afebrile - Urine output WNL (7) Type 2 diabetes mellitus ICD Codes: E11.9 - Type 2 diabetes mellitus without complications Status: Chronic Plan: - continue to monitor BSG -Decreased Levemir to 15 units q 12 due to BG range below goal. -Will continue to monitor -BS goal 140-180 -Discontinued SSI on 07/16 -AccuCheks QShift -Glucerna for PEG tube feedings @ 45 ml/hr -Glucagon 1 mg per PRN protocol for hypoglycemia BS <70mg/dL History Admitted for DKA which has now resolved. Hemoglobin A1C is 12.9. Diabetes Type II is uncontrolled. (8) Hip fracture ICD Codes: S72.009A - Fracture of unspecified part of neck of unspecified femur , initial encounter for closed fracture Status: Resolved Plan: S/P left hip reduction and intramedullary nail fixation on 04-21-17 -c/w Calcium/Vitamin D (9) Hypertension ICD Codes: I10 - Essential (primary) hypertension Status: Chronic Plan: -Antihypertensives to keep SBP<160, as per critical care recs -c/w clonidine 0.1mg Q6h PRN SBP >160 -c/w lisinopril 20mg Q12h po Echocardiogram 04/24 - EF 50 to 55%. Mild concentric LVH. (10) Fluids, Electrolytes, and Nutrition Status: Acute Plan: Fluids: through PEG tube Electrolyte: on electrolyte protocol Nutrition: continuous Glucerna tube feeds and free water, pump at 45mls/hr, tolerating feeds well, no residual. Protein 1 pack TID. Supplements: calcium TID and vit D3 QD DVT ppx: SCDs/heparin CVA ppx: aspirin 325 mg QD GI ppx: Lansoprazole 30mg qd via NG Colace, dulcolax PRN Problem Qualifiers (1) Chronic respiratory failure: Qualified Codes: J96.11 - Chronic respiratory failure with hypoxia (2) UTI (urinary tract infection): Qualified Codes: N39.0 - Urinary tract infection, site not specified (3) Sacral decubitus ulcer: Qualified Codes: L89.154 - Pressure ulcer of sacral region, stage 4 (4) Type 2 diabetes mellitus: Qualified Codes: E11.9 - Type 2 diabetes mellitus without complications (5) Hip fracture: (6) Hypertension: Qualified Codes: I10 - Essential (primary) hypertension Apple Winslow MD R1 Jul 30, 2017 12:05
[2017-07-30 13:43] VITALS: O2SAT 96
[2017-07-30 16:00] VITALS: BP 164/75; PULSE 83; RESP 16; TEMP 95.6; O2SAT 100
[2017-07-30] MEDS: cloNIDine HCL 0.1 MG TAB PO PRN (16:33)
--- NOTE | 2017-07-30 19:58 | HHI.PR ---
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 Looks around Small amount of trach secretions No distress Objective Vital Signs Vital Signs Date Time Temp Pulse Resp B/P (MAP) Pulse Ox O2 Delivery O2 Flow Rate FiO2 07/30/17 16:00 95.6 83 16 164/75 (104) 100 07/30/17 13:43 96 T-piece 6.00 50 07/30/17 13:43 96 T-piece 50 07/30/17 12:00 95.2 88 17 154/76 (102) 96 07/30/17 08:00 96.9 84 19 168/82 (110) 96 07/30/17 00:00 95.4 82 19 127/72 (90) 96 07/29/17 20:00 95.6 86 19 148/75 (99) 96 I/O 07/29/17 07/29/17 07/29/17 07/30/17 07/30/17 07/30/17 07:00 15:00 23:00 07:00 15:00 23:00 Intake Total 984 ml 0 ml 100 ml 815 ml 511 ml Output Total 850 ml 300 ml 1400 ml 550 ml Balance 134 ml 0 ml -200 ml -585 ml -39 ml Intake Oral 0 ml 0 ml 0 ml 0 ml 0 ml IV Total 100 ml 100 ml 100 ml Tube Feeding 684 ml 715 ml 511 ml Other 200 ml Output Urine Total 850 ml 300 ml 1400 ml 550 ml # Bowel Movements 1 2 1 Result Diagram: 07/30/17 0620 07/30/17 0620 Objective Remarks GENERAL: Elderly female,NAD SKIN: Warm and dry. HEAD: Normocephalic. EYES: No scleral icterus. No injection or drainage. NECK: Supple, trachea midline. No JVD or lymphadenopathy. CARDIOVASCULAR: Regular rate and rhythm without murmurs, gallops, or rubs. RESPIRATORY: Breath sounds equal bilaterally. No accessory muscle use. GASTROINTESTINAL: Abdomen soft, non-tender, nondistended. MUSCULOSKELETAL: No cyanosis, or edema. BACK: Nontender without obvious deformity. No CVA tenderness. A/P Assessment and Plan RF,S/P Trach CVA Pneumonia PLAN: Cont Abx Aerosol nebs Supplement 02 Trach care TF Palliative care evaluating pt. No bronch at this time Chris Rizo MD Jul 30, 2017 19:58
[2017-07-30 20:51] VITALS: BP 97/52; PULSE 64; RESP 20; TEMP 96.2; O2SAT 100
[2017-07-31] VITALS (8 sets, daily range): BP systolic 113–139; BP diastolic 59–71; PULSE 66–89; RESP 14–21; TEMP 96–97.2; O2SAT 98–100
[2017-07-31] MEDS: CEFTOLOZANE-TAZOBACTAM INJ 1,500 MG in SODIUM CHLORIDE 0.9% INJ 100 ML IV SCH ×3 (00:51→18:20)
[2017-07-31] MEDS: ARTIFICIAL TEARS OPTH SOLN 15 ML BTL EACH EYE SCH ×3 (05:31→19:59)
[2017-07-31] MEDS: HEPARIN SODIUM - SQ 10,000 UNITS/ML VIAL SQ SCH ×3 (05:31→20:00)
[2017-07-31] MEDS: INSULIN ASPART SUPPLEMENTAL SCALE SQ SCH ×5 (05:34→23:45)
[2017-07-31 08:48] LABS: HEMATOCRIT 27.5 % (35.0-46.0); MEAN CELL VOLUME 98.7 FL (80.0-100.0); MEAN CORPUSCULAR HEMOGLOBIN 32.2 PG (27.0-34.0); MEAN CORPUSCULAR HGB CONC 32.6 % (32.0-36.0); MEAN PLATELET VOLUME 8.5 FL (7.0-11.0); PLATELET COUNT 315 TH/MM3 (150-450); RED BLOOD COUNT 2.79 MIL/MM3 (4.00-5.30); RED CELL DISTRIBUTION WIDTH 16.9 % (11.6-17.2); WHITE BLOOD COUNT 9.6 TH/MM3 (4.0-11.0)
[2017-07-31 08:54] LABS: BICARBONATE 32.2 MEQ/L (21.0-32.0); CALCIUM 9.3 MG/DL (8.5-10.1); CREATININE 0.35 MG/DL (0.50-1.00)
[2017-07-31] MEDS: BENEPROTEIN POWDER 1 PACK G-TUBE SCH ×3 (09:00→18:00)
[2017-07-31] MEDS: SODIUM CHLORIDE 0.9% FLUSH 5 ML FLUSH IV FLUSH SCH ×2 (09:00→19:59)
[2017-07-31] MEDS: CALCIUM/VITAMIN D 250 MG/125 U TAB PO SCH ×3 (09:52→18:20)
[2017-07-31] MEDS: INSULIN DETEMIR 100 UNITS/ML VIAL SQ SCH ×2 (09:52→19:58)
[2017-07-31] MEDS: CHOLECALCIFEROL (VIT D3) 5000 UNIT CAP PO SCH (09:52)
[2017-07-31] MEDS: LISINOPRIL 10 MG TAB PO SCH ×2 (09:53→19:58)
[2017-07-31] MEDS: ASPIRIN 325 MG TAB DOBHOFF SCH (09:53)
[2017-07-31] MEDS: POLYETHYLENE GLYCOL 17 GM PKG PEG SCH (09:53)
[2017-07-31] MEDS: LANSOPRAZOLE SOLUTAB 30 MG TAB NG SCH (09:53)
--- NOTE | 2017-07-31 11:42 | HHI.FPPN ---
Subjective Remarks No acute events overnight. Afebrile. BPs ranging 90s-160s/50s-80s past 24 hours. O2 sats appropriate. 1230 cc of UOP noted along with 3 bowel movements. Blood glucoses past 24 hours ranging 120-222, total of 5 units supplemental insulin given. Patient seen and examined this morning. Lying flat in bed. Appears to be in NAD , breathing nonlabored. Not consistently responding to painful stimuli. Objective Vitals Vital Signs Date Time Temp Pulse Resp B/P (MAP) Pulse Ox O2 Delivery O2 Flow Rate FiO2 07/31/17 08:00 96.3 81 14 129/61 (83) 99 07/31/17 00:25 96.0 66 20 113/59 (77) 100 07/30/17 20:51 96.2 64 20 97/52 (67) 100 07/30/17 20:30 Trach Collar T-Piece 07/30/17 16:00 95.6 83 16 164/75 (104) 100 07/30/17 13:43 96 T-piece 6.00 50 07/30/17 13:43 96 T-piece 50 07/30/17 12:00 95.2 88 17 154/76 (102) 96 I/O 07/30/17 07/30/17 07/30/17 07/31/17 07/31/17 07/31/17 07:00 15:00 23:00 07:00 15:00 23:00 Intake Total 815 ml 511 ml Output Total 1400 ml 550 ml 680 ml Balance -585 ml -39 ml -680 ml Intake Oral 0 ml 0 ml IV Total 100 ml Tube Feeding 715 ml 511 ml Output Urine Total 1400 ml 550 ml 680 ml # Bowel Movements 2 1 2 Result Diagram: 07/31/1781307/31/17813 Objective Remarks CONSTITUTIONAL/GEN: Appears comfortable. NAD. HEAD: Normocephalic. Atraumatic. Right side facial droop. LUNGS: Decreased sounds in b/l bases more prominent at left base, Breathing spontaneously via T-tube. CARDIOVASCULAR: NRRR, normal S1/S2, no murmur GI/ABD: Soft, non-distended. No grimacing with palpation. Feeding tube insertion point with no redness, no distention NEURO: PERRL. Not able to track. Flaccid paralysis on the right side. MUSC: SCDs on bilateral lower extremities. Pedal pulses present. SKIN: Sacral pressure ulcer extends from anus to coccyx. EXTREMITIES: 1+ pitting edema up to distal tibia of right lower extremity. No edema of LLE. Procedures ORIF 04/21/17 Intubation 04/30/17 Chest tube placement 05/07/17, removed 05/12/17 Trach placement 05/15/17 PEG tube placement 05/16/17 A/P Assessment and Plan 76 y/o female with HTN, DM admitted for DKA and hip fracture s/p large CVA after ORIF she is currently stable with her current treatment but has had no meaningful functional recovery and do not anticipate any further neurologic recovery from here on. Dr. Harper, Dr. Tran and case management had a long discussion with the daughter on 07/23 and the patient's daughter is still hopeful for full recovery for her mom in spite of her mom's state of health since her CVA. DW the daughter that it is our belief based on her clinical picture that she will not make any sort of meaningful recovery and will remain on the trach and PEG for the rest of her life. DW the daughter due to her status that the patient will likely continue to decline and continue to acquire infections associated with this type of clinical picture including UTI, PNA, and sepsis. DW the daughter to consider the QOL that her mother would have wanted. We recommend that this patient receive Hospice services as we would not anticipate her living longer than 6 months. The daughter does not want to consider this at this time and she is the sole decision maker for this patient. In that case, we will continue to treat the patient aggressively as issues arise and honor the families wishes. A one-hour long family meeting was held (07/26) with patient's daughter Trice, Dr. Harper, Dr. Watts and patient's nurse to discuss patient's poor prognosis. We felt it was important to listen to daughter's perspective and address any questions or concerns she has about her mother's care. Patient goals of care were also discussed. Daughter still wants aggressive treatment. Daughter was informed that from our medical standpoint we do not anticipated any meaningful recovery from her mother's current baseline. Neither do we anticipate for mother to be able to get off PEG tube feeds and trach. However, we will continue to honor daughter's wishes and provide aggressive medical care. ID and pulmonology are actively following. Patient is currently being treated for MDR pseudomonas pna and pulmonology recommended bronchoscopy. Risk and benefits of the procedure were explained and discussed with daughter. The option for her mother not to have the bronchoscopy and to instead continue treatment with antibiotics was also discussed. She is currently unsure about the procedure. She was advised to take time to think about her decision keeping in mind what her mother's wishes would be. Problem List: (1) Chronic respiratory failure ICD Codes: J96.10 - Chronic respiratory failure, unspecified whether with hypoxia or hypercapnia Plan: At this point, respiratory failure is chronic on T-tube Hospital Acquired PNA on 07/21 -- repeat CXR on 07/23 does show improvement. sputum culture positive for Multi drug resistant pseudomonas blood cx from 07/21 no growth (final) Repeat blood cultures from 07/25 no growth final Legionella and S pneumonia urine antigen negative -ID following (Dr. Saleh), recommendations appreciated - Continue ceftolozane/ tazobactam - Continue to follow cultures -Pulmonology following (Dr. Rizo), recommended bronchoscopy procedure, daughter refused at this time -CXR 07/29 revealed diffuse bilateral airspace diase with interval worsening on the right, lasix 40mg IV given once for fluid overload Infection History Pseudomonas hospital-acquired pneumonia - active MSSA bacteremia - resolved Serratia/staph aureus pneumonia - resolved C glabrata UTI - resolved Citrobacter UTI - resolved Serratia/MSSA sputum VAP - resolved Antibiotic History Cefazolin: 04/21-04/22, 05/15-05/16 Cefepime: 04/30-05/04, 05/27-06/03 Ceftrioxone 05/26-05/27 Erythromycin 06/16-06/18, 06/19 Gentamicin 04/21 vancomycin 04/30-05/04, 06/21-06/23 Zosyn 07/21 - 07/25 Azithromycin 07/21 - 07/25 Fluconazole 04/29 - ; 07/26 ceftolozane/ tazobactam 07/25 - present (2) Acute CVA (cerebrovascular accident) ICD Codes: I63.9 - Cerebral infarction, unspecified Status: Chronic Plan: Neurologically stable, no improvement. Overall prognosis is poor. Persistent oxygen requirement See above note about meeting with Daughter on 07/23 and 07/26. Daughter still desires full code and aggressive care -Titrate oxygen via trach to maintain O2 saturation above 92% -Continue tube fees at 45ml/hr 24 hours per day thru peg Tube -Neurosurgery, neurology and palliative care have all been consulted in the past and agree with very poor prognosis with no meaningful neurologic recovery. History and imaging: Patient found minimally responsive with neurological deficits around 0820 04/24. Stat CT of head was ordered, which showed large left MCA infarct. Diffuse edema throughout the left MCA distribution, suggested completed infarct. This was discussed and was not a candidate for intracranial intervention. CT (04/30): Reduction in midline shift to 11mm. Unchanged large left MCA infarction. CT head (05/06) shows: Evolving large left-sided MCA territory infarct with minimally improved pcwz-zl-sotto subfalcine shift. No intercurrent hemorrhage or other acute abnormality. Echocardiogram- The left ventricular systolic function is low normal with an estimated ejection fraction in the range of 50-55%. Mild concentric left ventricular hypertrophy. Normal left ventricular size. [id number] mitral valve regurgitation. Carotid Artery US- No hemodynamically significant carotid stenosis (3) UTI (urinary tract infection) ICD Codes: N39.0 - Urinary tract infection, site not specified Status: Resolved Plan: UCx on 07/15 positive for E coli Repeat UCx on 07/20 positive for C. Freundii UCx 07/24 grew only yeast - See above for antibiotic history and coverage (4) Sacral decubitus ulcer ICD Codes: L89.159 - Pressure ulcer of sacral region, unspecified stage Status: Chronic Plan: Patient with Stage IV pressure injury over the coccyx -Wound care consult appreciated: 1. Please cleanse coccyx wound every 3 days and PRN for soiling. 2. Apply Calcium Alginate to open wound bed. 3. Secure with bordered gauze every 3 days and PRN for soiling. 4. Continue to turn patient every 2 hours or PRN for comfort. 5. Use one ultrasorb for moisture. Please use flat sheet for repositioning. (5) Anemia ICD Codes: D64.9 - Anemia, unspecified Status: Chronic Plan: s/p 1u of PRBC on 05/28/17. Hgb stable Hemoccult negative on 05/29 - monitor H&H periodically Stable 07/31 (6) Urinary retention ICD Codes: R33.9 - Retention of urine, unspecified Status: Chronic Plan: - Leavitt cath done because patient was retaining urine with intermittent cath's - Cath last changed 07/15, pt afebrile - Urine output WNL (7) Type 2 diabetes mellitus ICD Codes: E11.9 - Type 2 diabetes mellitus without complications Status: Chronic Plan: - BSBG ranging 120-222 past 24 hours, requiring 5 units total supplemental insulin -continue to monitor BSG -Decreased Levemir to 15 units q 12 due to BG range below goal. -Will continue to monitor -BS goal 140-180 -Discontinued SSI on 07/16 -AccuCheks QShift -Glucerna for PEG tube feedings @ 45 ml/hr -Glucagon 1 mg per PRN protocol for hypoglycemia BS <70mg/dL History Admitted for DKA which has now resolved. Hemoglobin A1C is 12.9. Diabetes Type II is uncontrolled. (8) Hip fracture ICD Codes: S72.009A - Fracture of unspecified part of neck of unspecified femur , initial encounter for closed fracture Status: Resolved Plan: S/P left hip reduction and intramedullary nail fixation on 04-21-17 -c/w Calcium/Vitamin D (9) Hypertension ICD Codes: I10 - Essential (primary) hypertension Status: Chronic Plan: -Antihypertensives to keep SBP<160, as per critical care recs -c/w clonidine 0.1mg Q6h PRN SBP >160 -c/w lisinopril 20mg Q12h po Echocardiogram 04/24 - EF 50 to 55%. Mild concentric LVH. (10) Fluids, Electrolytes, and Nutrition Status: Acute Plan: Fluids: through PEG tube Electrolyte: Continue to monitor periodically, replete as needed Nutrition: continuous Glucerna tube feeds and free water, pump at 45mls/hr, tolerating feeds well, no residual. Protein 1 pack TID. Supplements: calcium TID and vit D3 QD DVT ppx: SCDs/heparin CVA ppx: aspirin 325 mg QD GI ppx: Lansoprazole 30mg qd via NG Colace, dulcolax PRN Problem Qualifiers (1) Chronic respiratory failure: Qualified Codes: J96.11 - Chronic respiratory failure with hypoxia (2) UTI (urinary tract infection): Qualified Codes: N39.0 - Urinary tract infection, site not specified (3) Sacral decubitus ulcer: Qualified Codes: L89.154 - Pressure ulcer of sacral region, stage 4 (4) Type 2 diabetes mellitus: Qualified Codes: E11.9 - Type 2 diabetes mellitus without complications (5) Hip fracture: (6) Hypertension: Qualified Codes: I10 - Essential (primary) hypertension Jared Ennis MD R2 Jul 31, 2017 11:42
--- NOTE | 2017-07-31 19:28 | HHI.PR ---
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 Looks around Small amount of trach secretions No distress No new complaint reported Objective Vital Signs Vital Signs Date Time Temp Pulse Resp B/P (MAP) Pulse Ox O2 Delivery O2 Flow Rate FiO2 07/31/17 16:00 96.8 73 15 125/68 (87) 98 07/31/17 12:00 97.1 78 16 127/63 (84) 98 07/31/17 08:30 99 T-piece 50 07/31/17 08:00 96.3 81 14 129/61 (83) 99 07/31/17 07:00 Trach Collar T-Piece 07/31/17 00:25 96.0 66 20 113/59 (77) 100 07/30/17 20:51 96.2 64 20 97/52 (67) 100 07/30/17 20:30 Trach Collar T-Piece I/O 07/30/17 07/30/17 07/30/17 07/31/17 07/31/17 07/31/17 07:00 15:00 23:00 07:00 15:00 23:00 Intake Total 815 ml 511 ml 0 ml Output Total 1400 ml 550 ml 680 ml 500 ml Balance -585 ml -39 ml -680 ml -500 ml Intake Oral 0 ml 0 ml 0 ml IV Total 100 ml Tube Feeding 715 ml 511 ml Output Urine Total 1400 ml 550 ml 680 ml 500 ml # Bowel Movements 2 1 2 3 Result Diagram: 07/31/17 0814 07/31/17 0814 Objective Remarks GENERAL: Elderly female,NAD SKIN: Warm and dry. HEAD: Normocephalic. EYES: No scleral icterus. No injection or drainage. NECK: Supple, trachea midline. No JVD or lymphadenopathy. CARDIOVASCULAR: Regular rate and rhythm without murmurs, gallops, or rubs. RESPIRATORY: Breath sounds equal bilaterally. No accessory muscle use. GASTROINTESTINAL: Abdomen soft, non-tender, nondistended. MUSCULOSKELETAL: No cyanosis, or edema. BACK: Nontender without obvious deformity. No CVA tenderness. A/P Assessment and Plan RF,S/P Trach CVA Pneumonia PLAN: Cont Abx Aerosol nebs Supplement 02 Trach care TF Palliative care evaluating pt. Chris Rizo MD Jul 31, 2017 19:28
[2017-08-01] MEDS: CEFTOLOZANE-TAZOBACTAM INJ 1,500 MG in SODIUM CHLORIDE 0.9% INJ 100 ML IV SCH ×4 (01:45→18:13)
[2017-08-01] MEDS: INSULIN ASPART SUPPLEMENTAL SCALE SQ SCH ×3 (04:51→18:28)
[2017-08-01] MEDS: HEPARIN SODIUM - SQ 10,000 UNITS/ML VIAL SQ SCH ×3 (04:51→22:00)
[2017-08-01] MEDS: ARTIFICIAL TEARS OPTH SOLN 15 ML BTL EACH EYE SCH ×3 (04:54→22:40)
[2017-08-01 08:00] VITALS: BP 127/75; PULSE 93; RESP 15; TEMP 97.2; O2SAT 95
[2017-08-01] MEDS: INSULIN DETEMIR 100 UNITS/ML VIAL SQ SCH ×2 (09:00→22:39)
[2017-08-01] MEDS: POLYETHYLENE GLYCOL 17 GM PKG PEG SCH (09:00)
[2017-08-01] MEDS: BENEPROTEIN POWDER 1 PACK G-TUBE SCH ×3 (09:00→18:00)
[2017-08-01] MEDS: SODIUM CHLORIDE 0.9% FLUSH 5 ML FLUSH IV FLUSH SCH ×2 (09:00→21:00)
[2017-08-01] MEDS: CHOLECALCIFEROL (VIT D3) 5000 UNIT CAP PO SCH (09:06)
[2017-08-01] MEDS: ASPIRIN 325 MG TAB DOBHOFF SCH (09:06)
[2017-08-01] MEDS: LANSOPRAZOLE SOLUTAB 30 MG TAB NG SCH (09:06)
[2017-08-01] MEDS: CALCIUM/VITAMIN D 250 MG/125 U TAB PO SCH ×3 (09:06→18:13)
[2017-08-01] MEDS: LISINOPRIL 10 MG TAB PO SCH ×2 (09:06→22:35)
[2017-08-01 12:00] VITALS: BP 124/70; PULSE 88; RESP 16; TEMP 97.5; O2SAT 94
--- NOTE | 2017-08-01 14:04 | HHI.FPPN ---
Subjective Remarks No acute events overnight. Afebrile. BPs ranging 113-139s/59-75s past 24 hours. O2 sats appropriate. 1180 cc of UOP noted along with 5bowel movements. Blood glucoses past 24 hours ranging 148-203, total of 6 units supplemental insulin given. Patient seen and examined this morning. Lying flat in bed. Appears to be in NAD , breathing nonlabored. Not consistently responding to painful stimuli. Examined patient's sacrum with nurse. Patient has a stage II sacral ulcer. Urinary catheter in place. Objective Vitals Vital Signs Date Time Temp Pulse Resp B/P (MAP) Pulse Ox O2 Delivery O2 Flow Rate FiO2 08/01/17 12:00 97.5 88 16 124/70 (88) 94 08/01/17 08:00 97.2 93 15 127/75 (92) 95 08/01/17 02:21 98 T-Piece 6.00 50 07/31/17 23:59 97.2 81 18 137/65 (89) 99 07/31/17 21:18 98 T-piece 50 07/31/17 21:18 98 T-piece 50 07/31/17 20:54 97.0 89 21 139/71 (93) 99 07/31/17 16:00 96.8 73 15 125/68 (87) 98 I/O 07/31/17 07/31/17 07/31/17 08/01/17 08/01/17 08/01/17 07:00 15:00 23:00 07:00 15:00 23:00 Intake Total 445 ml 0 ml Output Total 680 ml 500 ml 680 ml Balance -235 ml -500 ml -680 ml Intake Oral 0 ml Tube Feeding 245 ml Tube Irrigant 200 ml Output Urine Total 680 ml 500 ml 680 ml # Bowel Movements 2 3 2 Result Diagram: 07/31/1781307/31/17813 Objective Remarks CONSTITUTIONAL/GEN: Appears comfortable. NAD. Trach and PEG. HEAD: Normocephalic. Atraumatic. Right side facial droop. LUNGS: Decreased sounds in b/l bases more prominent at left base, Breathing spontaneously via T-tube. CARDIOVASCULAR: NRRR, normal S1/S2, no murmur GI/ABD: Soft, non-distended. No grimacing with palpation. Feeding tube insertion point with no redness, no distention NEURO: PERRL. Not able to track. Flaccid paralysis on the right side. MUSC: SCDs on bilateral lower extremities. Pedal pulses present. SKIN: Sacral pressure ulcer extends from anus to coccyx. Stage II. EXTREMITIES: 1+ pitting edema up to distal tibia of right lower extremity. No edema of LLE. Other: urinary catheter in place. Procedures ORIF 04/21/17 Intubation 04/30/17 Chest tube placement 05/07/17, removed 05/12/17 Trach placement 05/15/17 PEG tube placement 05/16/17 A/P Assessment and Plan 76 y/o female with HTN, DM admitted for DKA and hip fracture s/p large CVA after ORIF she is currently stable with her current treatment but has had no meaningful functional recovery and do not anticipate any further neurologic recovery from here on. Dr. Harper, Dr. Tran and case management had a long discussion with the daughter on 07/23 and the patient's daughter is still hopeful for full recovery for her mom in spite of her mom's state of health since her CVA. DW the daughter that it is our belief based on her clinical picture that she will not make any sort of meaningful recovery and will remain on the trach and PEG for the rest of her life. DW the daughter due to her status that the patient will likely continue to decline and continue to acquire infections associated with this type of clinical picture including UTI, PNA, and sepsis. DW the daughter to consider the QOL that her mother would have wanted. We recommend that this patient receive Hospice services as we would not anticipate her living longer than 6 months. The daughter does not want to consider this at this time and she is the sole decision maker for this patient. In that case, we will continue to treat the patient aggressively as issues arise and honor the families wishes. A one-hour long family meeting was held (07/26) with patient's daughter Trice, Dr. Harper, Dr. Watts and patient's nurse to discuss patient's poor prognosis. We felt it was important to listen to daughter's perspective and address any questions or concerns she has about her mother's care. Patient goals of care were also discussed. Daughter still wants aggressive treatment. Daughter was informed that from our medical standpoint we do not anticipated any meaningful recovery from her mother's current baseline. Neither do we anticipate for mother to be able to get off PEG tube feeds and trach. However, we will continue to honor daughter's wishes and provide aggressive medical care. ID and pulmonology are actively following. Patient is currently being treated for MDR pseudomonas pna and pulmonology recommended bronchoscopy. Risk and benefits of the procedure were explained and discussed with daughter. The option for her mother not to have the bronchoscopy and to instead continue treatment with antibiotics was also discussed. She is currently unsure about the procedure. She was advised to take time to think about her decision keeping in mind what her mother's wishes would be. Problem List: (1) Chronic respiratory failure ICD Codes: J96.10 - Chronic respiratory failure, unspecified whether with hypoxia or hypercapnia Plan: At this point, respiratory failure is chronic on T-tube Hospital Acquired PNA on 07/21 -- repeat CXR on 07/23 does show improvement. sputum culture positive for Multi drug resistant pseudomonas blood cx from 07/21 no growth (final) Repeat blood cultures from 07/25 no growth final Legionella and S pneumonia urine antigen negative -ID following (Dr. Saleh), recommendations appreciated - Continue ceftolozane/ tazobactam - Continue to follow cultures -Pulmonology following (Dr. Rizo), recommended bronchoscopy procedure, daughter refused at this time -CXR 07/29 revealed diffuse bilateral airspace disease with interval worsening on the right, lasix 40mg IV given once for fluid overload -Spoke with daughter on the phone today and updated her on the status of her mother. She still would like to pursue aggressive care. She will come visit tomorrow afternoon. Will plan to sit down and discuss with her again about goals and answer any questions she may have. Infection History Pseudomonas hospital-acquired pneumonia - active MSSA bacteremia - resolved Serratia/staph aureus pneumonia - resolved C glabrata UTI - resolved Citrobacter UTI - resolved Serratia/MSSA sputum VAP - resolved Antibiotic History Cefazolin: 04/21-04/22, 05/15-05/16 Cefepime: 04/30-05/04, 05/27-06/03 Ceftrioxone 05/26-05/27 Erythromycin 06/16-06/18, 06/19 Gentamicin 04/21 vancomycin 04/30-05/04, 06/21-06/23 Zosyn 07/21 - 07/25 Azithromycin 07/21 - 07/25 Fluconazole 04/29 - ; 07/26 ceftolozane/ tazobactam 07/25 - present (2) Acute CVA (cerebrovascular accident) ICD Codes: I63.9 - Cerebral infarction, unspecified Status: Chronic Plan: Neurologically stable, no improvement. Overall prognosis is poor. Persistent oxygen requirement See above note about meeting with Daughter on 07/23 and 07/26. Daughter still desires full code and aggressive care -Titrate oxygen via trach to maintain O2 saturation above 92% -Continue tube fees at 45ml/hr 24 hours per day thru peg Tube -Neurosurgery, neurology and palliative care have all been consulted in the past and agree with very poor prognosis with no meaningful neurologic recovery. History and imaging: Patient found minimally responsive with neurological deficits around 0820 04/24. Stat CT of head was ordered, which showed large left MCA infarct. Diffuse edema throughout the left MCA distribution, suggested completed infarct. This was discussed and was not a candidate for intracranial intervention. CT (04/30): Reduction in midline shift to 11mm. Unchanged large left MCA infarction. CT head (05/06) shows: Evolving large left-sided MCA territory infarct with minimally improved aluz-hi-dnhje subfalcine shift. No intercurrent hemorrhage or other acute abnormality. Echocardiogram- The left ventricular systolic function is low normal with an estimated ejection fraction in the range of 50-55%. Mild concentric left ventricular hypertrophy. Normal left ventricular size. Fnwxr-tq-blsh mitral valve regurgitation. Carotid Artery US- No hemodynamically significant carotid stenosis (3) UTI (urinary tract infection) ICD Codes: N39.0 - Urinary tract infection, site not specified Status: Resolved Plan: UCx on 07/15 positive for E coli Repeat UCx on 07/20 positive for C. Freundii UCx 07/24 grew only yeast - See above for antibiotic history and coverage (4) Sacral decubitus ulcer ICD Codes: L89.159 - Pressure ulcer of sacral region, unspecified stage Status: Chronic Plan: Patient with Stage II pressure injury over the coccyx -Wound care consult appreciated: 1. Please cleanse coccyx wound every 3 days and PRN for soiling. 2. Apply Calcium Alginate to open wound bed. 3. Secure with bordered gauze every 3 days and PRN for soiling. 4. Continue to turn patient every 2 hours or PRN for comfort. 5. Use one ultrasorb for moisture. Please use flat sheet for repositioning. (5) Anemia ICD Codes: D64.9 - Anemia, unspecified Status: Chronic Plan: s/p 1u of PRBC on 05/28/17. Hgb stable Hemoccult negative on 05/29 - monitor H&H periodically Stable 07/31 (6) Urinary retention ICD Codes: R33.9 - Retention of urine, unspecified Status: Chronic Plan: - Leavitt cath done because patient was retaining urine with intermittent cath's - Cath last changed 07/15, pt afebrile - Urine output WNL (7) Type 2 diabetes mellitus ICD Codes: E11.9 - Type 2 diabetes mellitus without complications Status: Chronic Plan: - BSBG ranging 120-222 past 24 hours, requiring 5 units total supplemental insulin -continue to monitor BSG -Decreased Levemir to 15 units q 12 due to BG range below goal. -Will continue to monitor -BS goal 140-180 -Discontinued SSI on 07/16 -AccuCheks QShift -Glucerna for PEG tube feedings @ 45 ml/hr -Glucagon 1 mg per PRN protocol for hypoglycemia BS <70mg/dL History Admitted for DKA which has now resolved. Hemoglobin A1C is 12.9. Diabetes Type II is uncontrolled. (8) Hip fracture ICD Codes: S72.009A - Fracture of unspecified part of neck of unspecified femur , initial encounter for closed fracture Status: Resolved Plan: S/P left hip reduction and intramedullary nail fixation on 04-21-17 -c/w Calcium/Vitamin D (9) Hypertension ICD Codes: I10 - Essential (primary) hypertension Status: Chronic Plan: -Antihypertensives to keep SBP<160, as per critical care recs -c/w clonidine 0.1mg Q6h PRN SBP >160 -c/w lisinopril 20mg Q12h po Echocardiogram 04/24 - EF 50 to 55%. Mild concentric LVH. (10) Fluids, Electrolytes, and Nutrition Status: Acute Plan: Fluids: through PEG tube Electrolyte: Continue to monitor periodically, replete as needed Nutrition: continuous Glucerna tube feeds and free water, pump at 45mls/hr, tolerating feeds well, no residual. Protein 1 pack TID. Supplements: calcium TID and vit D3 QD DVT ppx: SCDs/heparin CVA ppx: aspirin 325 mg QD GI ppx: Lansoprazole 30mg qd via NG Colace, dulcolax PRN Problem Qualifiers (1) Chronic respiratory failure: Qualified Codes: J96.11 - Chronic respiratory failure with hypoxia (2) UTI (urinary tract infection): Qualified Codes: N39.0 - Urinary tract infection, site not specified (3) Sacral decubitus ulcer: Qualified Codes: L89.154 - Pressure ulcer of sacral region, stage 4 (4) Type 2 diabetes mellitus: Qualified Codes: E11.9 - Type 2 diabetes mellitus without complications (5) Hip fracture: (6) Hypertension: Qualified Codes: I10 - Essential (primary) hypertension Apple Winslow MD R1 Aug 01, 2017 14:04
[2017-08-01 16:00] VITALS: BP 123/76; PULSE 88; RESP 16; TEMP 97.3; O2SAT 97
--- NOTE | 2017-08-01 18:48 | HHI.PR ---
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 Looks around Small amount of trach secretions No distress No new complaint reported Objective Vital Signs Vital Signs Date Time Temp Pulse Resp B/P (MAP) Pulse Ox O2 Delivery O2 Flow Rate FiO2 08/01/17 16:00 97.3 88 16 123/76 (92) 97 08/01/17 12:00 97.5 88 16 124/70 (88) 94 08/01/17 09:15 91 T-Piece 50 08/01/17 08:00 97.2 93 15 127/75 (92) 95 08/01/17 02:21 98 T-Piece 6.00 50 07/31/17 23:59 97.2 81 18 137/65 (89) 99 07/31/17 21:18 98 T-piece 50 07/31/17 21:18 98 T-piece 50 07/31/17 20:54 97.0 89 21 139/71 (93) 99 I/O 07/31/17 07/31/17 07/31/17 08/01/17 08/01/17 08/01/17 07:00 15:00 23:00 07:00 15:00 23:00 Intake Total 445 ml 0 ml 100 ml Output Total 680 ml 500 ml 680 ml 700 ml Balance -235 ml -500 ml -680 ml -600 ml Intake Oral 0 ml 0 ml IV Total 100 ml Tube Feeding 245 ml Tube Irrigant 200 ml Output Urine Total 680 ml 500 ml 680 ml 700 ml # Bowel Movements 2 3 2 3 Result Diagram: 07/31/1781307/31/1714 Objective Remarks GENERAL: Elderly female,NAD SKIN: Warm and dry. HEAD: Normocephalic. EYES: No scleral icterus. No injection or drainage. NECK: Supple, trachea midline. No JVD or lymphadenopathy. CARDIOVASCULAR: Regular rate and rhythm without murmurs, gallops, or rubs. RESPIRATORY: Breath sounds equal bilaterally. No accessory muscle use. GASTROINTESTINAL: Abdomen soft, non-tender, nondistended. MUSCULOSKELETAL: No cyanosis, or edema. BACK: Nontender without obvious deformity. No CVA tenderness. A/P Assessment and Plan RF,S/P Trach CVA Pneumonia PLAN: Cont Abx Aerosol nebs Supplement 02 Trach care TF Palliative care evaluating pt. Stable from pulm standpoint Available prn over weekend Chris Rizo MD Aug 01, 2017 18:48
[2017-08-01 20:00] VITALS: BP 162/78; PULSE 85; RESP 17; TEMP 97.6; O2SAT 98
--- NOTE | 2017-08-01 20:57 | HHI.IDPN ---
Subjective Subjective Remarks is a 76 y/o CF with PMHx of stroke, diabetes mellitus who was admitted with DKA and a hip fracture for which she underwent ORIF on 04/21. While in hospital recovering, patient developed altered mental status. Due to worsening mental status a stroke alert was called. Head CT showed large left MCA territory ischemic infarct with edema. Patient was transferred to the ICU by family medicine service and critical care consult was requested. At the time of evaluation in [facility], patient was opening her eyes however not following commands and had a dense right hemiplegia. Patient was also evaluated by Dr. Malave from neurology. At baseline, the patient lives with her daughter since her stroke in 2014 and does ambulate however has been having problems with memory and incontinence as well as gait difficulties. She does not feel patient would want intubation or tracheostomy or PEG tube. On 05/01/17 patient was intubated for severe hypoxemic respiratory failure from aspiration pneumonia. She also had a temp of 101 F. Blood culture and sputum culture with staph aureus sputum also growing GNR, WBC count 22,000 now indicating worsening sepsis. 05/06/[address] head with massive left MCA infarction and > 1 cm shift in right handed woman. Meanwhile patient is also being treated for C.glabrata UTI. At the time of my evaluation, patient is in [facility] on ventilator. She spontaneously opens eyes, did not follow commands for me. She underwent a CT A/ P which shows a left side pneumothorax. is placing a pigtail chest tube. She has a moser in place but no central line. ID is consulted for evaluation and Mment of Sepsis, MSSA and aspiration pneumonia, C.glabrata UTI. Overnight events reviewed with RN. No fevers Secretions biggs small to moderate. PEG tube and trach site ok. Sitting in chair on T piece. Does not track or follow commands. Sitting in a chair, opens eyes but no meaningful interaction. UO ok. Antibiotics Zerbaxa IV Lines Line sites with no e.o infection. Past Medical History reviewed Allergies: Coded Allergies: No Known Allergies (Unverified , 04/20/17) Objective . Vital Signs Date Time Temp Pulse Resp B/P (MAP) Pulse Ox O2 Delivery O2 Flow Rate FiO2 08/01/17 20:00 97.6 85 17 162/78 (106) 98 08/01/17 16:00 97.3 88 16 123/76 (92) 97 08/01/17 12:00 97.5 88 16 124/70 (88) 94 08/01/17 09:15 91 T-Piece 50 08/01/17 08:00 97.2 93 15 127/75 (92) 95 08/01/17 02:21 98 T-Piece 6.00 50 07/31/17 23:59 97.2 81 18 137/65 (89) 99 07/31/17 21:18 98 T-piece 50 07/31/17 21:18 98 T-piece 50 08/01/17 08/01/17 08/02/17 15:00 23:00 07:00 Intake Total 100 ml Output Total 700 ml Balance -600 ml Intake Oral 0 ml IV Total 100 ml Output Urine Total 700 ml # Bowel Movements 3 . Laboratory Tests Test 07/31/17 08:14 White Blood Count 9.6 TH/MM3 Red Blood Count 2.79 MIL/MM3 Hemoglobin 9.0 GM/DL Hematocrit 27.5 % Mean Corpuscular Volume 98.7 FL Mean Corpuscular Hemoglobin 32.2 PG Mean Corpuscular Hemoglobin Concent 32.6 % Red Cell Distribution Width 16.9 % Platelet Count 315 TH/MM3 Mean Platelet Volume 8.5 FL Laboratory Tests Test 07/31/17 08:14 Blood Urea Nitrogen 47 MG/DL Creatinine 0.35 MG/DL Random Glucose 134 MG/DL Calcium Level 9.3 MG/DL Sodium Level 144 MEQ/L Potassium Level 4.6 MEQ/L Chloride Level 108 MEQ/L Carbon Dioxide Level 32.2 MEQ/L Anion Gap 4 MEQ/L Estimat Glomerular Filtration Rate 182 ML/MIN Imaging Last Impressions Chest X-Ray 05/11/17 0000 Signed Impressions: Service Date/Time: Thursday, May 11, 2017 09:37 - CONCLUSION: 1. Small right pleural effusion. 2. Bilateral mid and lower lung zone predominant air space opacity could represent pulmonary edema given the appearance and distribution. Obdulio Sam MD Abdomen X-Ray 05/10/17 0000 Signed Impressions: Service Date/Time: Wednesday, May 10, 2017 22:08 - CONCLUSION: Tip of Dobbhoff catheter is in the antrum of the stomach. Sage Adler MD Gall Bladder Ultrasound 05/08/17 0000 Signed Impressions: Service Date/Time: May 08:23 - CONCLUSION: Focally unremarkable appearance of the gallbladder Obdulio Chun MD Abdomen/Pelvis CT 05/07/17 0000 Signed Impressions: Service Date/Time: Sunday, May 07, 2017 13:23 - CONCLUSION: 1. Large left pneumothorax. 2. Bilateral lower lobe consolidation and bilateral moderate size pleural effusions. 3. Significant soft tissue thickening of the right lateral chest wall and left gluteus muscle. 4. Mild ascites. The findings were called to Dr. Carney. Deangelo Zamora MD Head CT 05/06/17 0000 Signed Impressions: Service Date/Time: Saturday, May 06, 2017 04:18 - CONCLUSION: 1. Evolving large left-sided MCA territory infarct with minimally improved dtrz-dk-[id number] subfalcine shift. 2. No intercurrent hemorrhage or other acute abnormality. Alejo De La Vega MD Hip and Pelvis X-Ray 05/05/17 0000 Signed Impressions: Service Date/Time: Friday, May 05, 2017 10:59 - CONCLUSION: Left proximal femur trochanteric/subtrochanteric fracture lucency visualized. Postoperative changes. Choco Mustafa MD Chest CT 04/30/17 0000 Signed Impressions: Service Date/Time: Sunday, April 30, 2017 09:20 - CONCLUSION: 1. Bilateral pulmonary infiltrates more pronounced within the lower lobes with tiny bilateral pleural effusions. Material seen filling the lower lobe bronchi bilaterally either related to purulent material or perhaps mucus plugging. Deangelo Wren Jr., MD Carotid Artery Ultrasound 04/24/17 0000 Signed Impressions: Service Date/Time: April 09:45 - CONCLUSION: 1. No hemodynamically significant carotid artery stenosis. Arnie Middleton MD Hip X-Ray 04/21/17 0000 Signed Impressions: Service Date/Time: Friday, April 21, 2017 11:36 - CONCLUSION: Fluoroscopic images during placement of intramedullary siomara left femur. Benja Ramsey MD Physical Exam GENERAL: Well-developed patient, in no apparent distress. SKIN: No rashes, ecchymoses or lesions. Cool and dry. EYES: Pupils equal round and reactive. Extraocular motions intact. No scleral icterus. No injection or drainage. ENT: NAD NECK: Trachea midline. Supple, nontender, no meningeal signs. CARDIOVASCULAR: Regular rate and rhythm without murmurs, gallops, or rubs. RESPIRATORY: Clear to auscultation. Breath sounds equal bilaterally. GASTROINTESTINAL: Abdomen soft, distended. No tenderness. MUSCULOSKELETAL: Pedal edema. Generalized anasarca. NEUROLOGICAL:. Opens eyes, not tracking, Does not track or follow commands Psych: could not be assessed. IV line sites with no e.o infection. Assessment & Plan Remarks Sepsis MDR PSAE pneumonia Left MCA infarction Recs: Continue Zerbaxa IV (ASP: MDR PSAE pneumonia) Repeat CXR today. US chest wall to assess and juan diego effusion. Please follow up and address with patients daughter to see if she agrees with Thoracentesis. If she does not agree please notify palliative care to reassess goals of care. Maybe showing the daughter the imaging might help her visualize the extent of lung issues. Follow cultures Follow clinically. available on weekend prn. Jane Saleh MD Aug 01, 2017 20:57
--- NOTE | 2017-08-01 21:27 | RADRPT ---
EXAM DATE/TIME: 08/01/2017 21:06 [facility] COMPARISON: CHEST SINGLE AP, July 29, 2017, 14:03. INDICATIONS : Pneumonia. MEDICAL HISTORY : Cerebrovascular disease. Hypertension SURGICAL HISTORY : None. ENCOUNTER: Subsequent ACUITY: 1 day PAIN SCORE: Non-responsive. LOCATION: Bilateral chest FINDINGS: Tracheostomy present. Bilateral airspace disease and effusions, similar on the right. Slight worsenin g in left-sided airspace disease since July 29. Mild scoliosis. CONCLUSION: 1. Bilateral airspace disease and effusions, slightly worse on the left since July 29. Right effu mary anne and airspace disease remains larger than the left side. Jaime Velasquez MD on August 01, 2017 at 21:24 Board Certified Radiologist. This report was verified electronically.
[2017-08-02] VITALS: BP 159/84; PULSE 81; RESP 17; TEMP 98.7; O2SAT 91
[2017-08-02] MEDS: INSULIN ASPART SUPPLEMENTAL SCALE SQ SCH ×4 (01:24→17:07)
[2017-08-02] MEDS: CEFTOLOZANE-TAZOBACTAM INJ 1,500 MG in SODIUM CHLORIDE 0.9% INJ 100 ML IV SCH ×3 (01:24→17:06)
[2017-08-02] MEDS: HEPARIN SODIUM - SQ 10,000 UNITS/ML VIAL SQ SCH ×3 (05:36→22:14)
[2017-08-02] MEDS: ARTIFICIAL TEARS OPTH SOLN 15 ML BTL EACH EYE SCH ×3 (05:37→22:13)
[2017-08-02 08:00] VITALS: BP 155/74; PULSE 80; RESP 22; TEMP 95.5; O2SAT 100
[2017-08-02] MEDS: SODIUM CHLORIDE 0.9% FLUSH 5 ML FLUSH IV FLUSH SCH ×2 (09:00→22:13)
[2017-08-02] MEDS: POLYETHYLENE GLYCOL 17 GM PKG PEG SCH (09:00)
[2017-08-02] MEDS: BENEPROTEIN POWDER 1 PACK G-TUBE SCH ×3 (09:00→16:30)
--- NOTE | 2017-08-02 09:41 | HHI.FPPN ---
Subjective Remarks No acute events overnight. Afebrile. BPs ranging s/72-84s past 24 hours. O2 sats appropriate. 1200 cc of UOP noted along with 4bowel movements. Blood glucoses past 24 hours ranging 222-234, total of 6 units supplemental insulin given. Patient seen and examined this morning. Lying flat in bed. Appears to be in NAD , breathing nonlabored. Not consistently responding to painful stimuli. Objective Vitals Vital Signs Date Time Temp Pulse Resp B/P (MAP) Pulse Ox O2 Delivery O2 Flow Rate FiO2 08/02/17 08:00 95.5 80 22 155/74 (101) 100 08/02/17 00:00 98.7 81 17 159/84 (109) 91 08/01/17 21:00 92 Trach Collar 7.00 08/01/17 20:00 97.6 85 17 162/78 (106) 98 08/01/17 16:00 97.3 88 16 123/76 (92) 97 08/01/17 12:00 97.5 88 16 124/70 (88) 94 I/O 08/01/17 08/01/17 08/01/17 08/02/17 08/02/17 08/02/17 07:00 15:00 23:00 07:00 15:00 23:00 Intake Total 100 ml 700 ml Output Total 680 ml 700 ml 500 ml Balance -680 ml -600 ml 200 ml Intake Oral 0 ml 0 ml IV Total 100 ml 100 ml Tube Feeding 550 ml Other 50 ml Output Urine Total 680 ml 700 ml 500 ml # Bowel Movements 2 3 1 Result Diagram: 07/31/1781307/31/17813 Objective Remarks CONSTITUTIONAL/GEN: Appears comfortable. NAD. Trach and PEG. HEAD: Normocephalic. Atraumatic. Right side facial droop. LUNGS: Decreased sounds in b/l bases more prominent at left base, Breathing spontaneously via T-tube. CARDIOVASCULAR: NRRR, normal S1/S2, no murmur GI/ABD: Soft, non-distended. No grimacing with palpation. Feeding tube insertion point with no redness, no distention NEURO: PERRL. Not able to track. Flaccid paralysis on the right side. MUSC: SCDs on bilateral lower extremities. Pedal pulses present. SKIN: Sacral pressure ulcer extends from anus to coccyx. Stage II. EXTREMITIES: 1+ pitting edema up to distal tibia of right lower extremity. No edema of LLE. Other: urinary catheter in place. Procedures ORIF 04/21/17 Intubation 04/30/17 Chest tube placement 05/07/17, removed 05/12/17 Trach placement 05/15/17 PEG tube placement 05/16/17 A/P Assessment and Plan 76 y/o female with HTN, DM admitted for DKA and hip fracture s/p large CVA after ORIF she is currently stable with her current treatment but has had no meaningful functional recovery and do not anticipate any further neurologic recovery from here on. Dr. Harper, Dr. Tran and case management had a long discussion with the daughter on 07/23 and the patient's daughter is still hopeful for full recovery for her mom in spite of her mom's state of health since her CVA. DW the daughter that it is our belief based on her clinical picture that she will not make any sort of meaningful recovery and will remain on the trach and PEG for the rest of her life. DW the daughter due to her status that the patient will likely continue to decline and continue to acquire infections associated with this type of clinical picture including UTI, PNA, and sepsis. DW the daughter to consider the QOL that her mother would have wanted. We recommend that this patient receive Hospice services as we would not anticipate her living longer than 6 months. The daughter does not want to consider this at this time and she is the sole decision maker for this patient. In that case, we will continue to treat the patient aggressively as issues arise and honor the families wishes. A one-hour long family meeting was held (07/26) with patient's daughter Trice, Dr. Harper, Dr. Watts and patient's nurse to discuss patient's poor prognosis. We felt it was important to listen to daughter's perspective and address any questions or concerns she has about her mother's care. Patient goals of care were also discussed. Daughter still wants aggressive treatment. Daughter was informed that from our medical standpoint we do not anticipated any meaningful recovery from her mother's current baseline. Neither do we anticipate for mother to be able to get off PEG tube feeds and trach. However, we will continue to honor daughter's wishes and provide aggressive medical care. ID and pulmonology are actively following. Patient is currently being treated for MDR pseudomonas pna and pulmonology recommended bronchoscopy. Risk and benefits of the procedure were explained and discussed with daughter. The option for her mother not to have the bronchoscopy and to instead continue treatment with antibiotics was also discussed. She is currently unsure about the procedure. She was advised to take time to think about her decision keeping in mind what her mother's wishes would be. Problem List: (1) Chronic respiratory failure ICD Codes: J96.10 - Chronic respiratory failure, unspecified whether with hypoxia or hypercapnia Plan: At this point, respiratory failure is chronic on T-tube Hospital Acquired PNA on 07/21 -- repeat CXR on 07/23 does show improvement. sputum culture positive for Multi drug resistant pseudomonas blood cx from 07/21 no growth (final) Repeat blood cultures from 07/25 no growth final Legionella and S pneumonia urine antigen negative -ID following (Dr. Saleh), recommendations appreciated - Continue ceftolozane/ tazobactam - Continue to follow cultures -Pulmonology following (Dr. Rizo), recommended bronchoscopy procedure, daughter refused at this time -CXR 07/29 revealed diffuse bilateral airspace disease with interval worsening on the right, lasix 40mg IV given once for fluid overload -Repeat CXR revealed worsening b/l airspace disease and effusion, slightly worse on the left since 07/29. Right effusion and airspace diases remains larger than the left side. -US chest wall, moderate right pleural effusion. -Spoke with daughter this afternoon. She would like to continue with aggressive care and agreed to a thoracentesis. Infection History Pseudomonas hospital-acquired pneumonia - active MSSA bacteremia - resolved Serratia/staph aureus pneumonia - resolved C glabrata UTI - resolved Citrobacter UTI - resolved Serratia/MSSA sputum VAP - resolved Antibiotic History Cefazolin: 04/21-04/22, 05/15-05/16 Cefepime: 04/30-05/04, 05/27-06/03 Ceftrioxone 05/26-05/27 Erythromycin 06/16-06/18, 06/19 Gentamicin 04/21 vancomycin 04/30-05/04, 06/21-06/23 Zosyn 07/21 - 07/25 Azithromycin 07/21 - 07/25 Fluconazole 04/29 - ; 07/26 ceftolozane/ tazobactam 07/25 - present (2) Acute CVA (cerebrovascular accident) ICD Codes: I63.9 - Cerebral infarction, unspecified Status: Chronic Plan: Neurologically stable, no improvement. Overall prognosis is poor. Persistent oxygen requirement See above note about meeting with Daughter on 07/23 and 07/26. Daughter still desires full code and aggressive care -Titrate oxygen via trach to maintain O2 saturation above 92% -Continue tube fees at 45ml/hr 24 hours per day thru peg Tube -Neurosurgery, neurology and palliative care have all been consulted in the past and agree with very poor prognosis with no meaningful neurologic recovery. History and imaging: Patient found minimally responsive with neurological deficits around 0820 04/24. Stat CT of head was ordered, which showed large left MCA infarct. Diffuse edema throughout the left MCA distribution, suggested completed infarct. This was discussed and was not a candidate for intracranial intervention. CT (04/30): Reduction in midline shift to 11mm. Unchanged large left MCA infarction. CT head (05/06) shows: Evolving large left-sided MCA territory infarct with minimally improved [id number] subfalcine shift. No intercurrent hemorrhage or other acute abnormality. Echocardiogram- The left ventricular systolic function is low normal with an estimated ejection fraction in the range of 50-55%. Mild concentric left ventricular hypertrophy. Normal left ventricular size. Gfjlx-nw-wqty mitral valve regurgitation. Carotid Artery US- No hemodynamically significant carotid stenosis (3) UTI (urinary tract infection) ICD Codes: N39.0 - Urinary tract infection, site not specified Status: Resolved Plan: UCx on 07/15 positive for E coli Repeat UCx on 07/20 positive for C. Freundii UCx 07/24 grew only yeast - See above for antibiotic history and coverage (4) Sacral decubitus ulcer ICD Codes: L89.159 - Pressure ulcer of sacral region, unspecified stage Status: Chronic Plan: Patient with Stage II pressure injury over the coccyx -Wound care consult appreciated: 1. Please cleanse coccyx wound every 3 days and PRN for soiling. 2. Apply Calcium Alginate to open wound bed. 3. Secure with bordered gauze every 3 days and PRN for soiling. 4. Continue to turn patient every 2 hours or PRN for comfort. 5. Use one ultrasorb for moisture. Please use flat sheet for repositioning. (5) Anemia ICD Codes: D64.9 - Anemia, unspecified Status: Chronic Plan: s/p 1u of PRBC on 05/28/17. Hgb stable Hemoccult negative on 05/29 - monitor H&H periodically Stable 07/31 (6) Urinary retention ICD Codes: R33.9 - Retention of urine, unspecified Status: Chronic Plan: - Leavitt cath done because patient was retaining urine with intermittent cath's - Cath last changed 07/15, pt afebrile - Urine output WNL (7) Type 2 diabetes mellitus ICD Codes: E11.9 - Type 2 diabetes mellitus without complications Status: Chronic Plan: - BSBG ranging 120-222 past 24 hours, requiring 5 units total supplemental insulin -continue to monitor BSG -Decreased Levemir to 15 units q 12 due to BG range below goal. -Will continue to monitor -BS goal 140-180 -Discontinued SSI on 07/16 -AccuCheks QShift -Glucerna for PEG tube feedings @ 45 ml/hr -Glucagon 1 mg per PRN protocol for hypoglycemia BS <70mg/dL History Admitted for DKA which has now resolved. Hemoglobin A1C is 12.9. Diabetes Type II is uncontrolled. (8) Hip fracture ICD Codes: S72.009A - Fracture of unspecified part of neck of unspecified femur , initial encounter for closed fracture Status: Resolved Plan: S/P left hip reduction and intramedullary nail fixation on 04-21-17 -c/w Calcium/Vitamin D (9) Hypertension ICD Codes: I10 - Essential (primary) hypertension Status: Chronic Plan: -Antihypertensives to keep SBP<160, as per critical care recs -c/w clonidine 0.1mg Q6h PRN SBP >160 -c/w lisinopril 20mg Q12h po Echocardiogram 04/24 - EF 50 to 55%. Mild concentric LVH. (10) Fluids, Electrolytes, and Nutrition Status: Acute Plan: Fluids: through PEG tube Electrolyte: Continue to monitor periodically, replete as needed Nutrition: continuous Glucerna tube feeds and free water, pump at 45mls/hr, tolerating feeds well, no residual. Protein 1 pack TID. Supplements: calcium TID and vit D3 QD DVT ppx: SCDs/heparin CVA ppx: aspirin 325 mg QD GI ppx: Lansoprazole 30mg qd via NG Colace, dulcolax PRN Problem Qualifiers (1) Chronic respiratory failure: Qualified Codes: J96.11 - Chronic respiratory failure with hypoxia (2) UTI (urinary tract infection): Qualified Codes: N39.0 - Urinary tract infection, site not specified (3) Sacral decubitus ulcer: Qualified Codes: L89.154 - Pressure ulcer of sacral region, stage 4 (4) Type 2 diabetes mellitus: Qualified Codes: E11.9 - Type 2 diabetes mellitus without complications (5) Hip fracture: (6) Hypertension: Qualified Codes: I10 - Essential (primary) hypertension Appel Winslow MD R1 Aug 02, 2017 09:41
[2017-08-02] MEDS: CHOLECALCIFEROL (VIT D3) 5000 UNIT CAP PO SCH (10:30)
[2017-08-02] MEDS: LANSOPRAZOLE SOLUTAB 30 MG TAB NG SCH (10:31)
[2017-08-02] MEDS: CALCIUM/VITAMIN D 250 MG/125 U TAB PO SCH ×3 (10:31→17:07)
[2017-08-02] MEDS: LISINOPRIL 10 MG TAB PO SCH ×2 (10:31→22:13)
[2017-08-02] MEDS: ASPIRIN 325 MG TAB DOBHOFF SCH (10:31)
[2017-08-02] MEDS: INSULIN DETEMIR 100 UNITS/ML VIAL SQ SCH ×2 (11:13→22:13)
[2017-08-02 12:00] VITALS: BP 160/72; PULSE 84; RESP 20; TEMP 96.1; O2SAT 99
[2017-08-02 16:00] VITALS: BP 161/74; PULSE 83; RESP 20; TEMP 95.6; O2SAT 99
--- NOTE | 2017-08-02 18:07 | RADRPT ---
EXAM DATE/TIME: 08/01/2017 22:06 [facility] COMPARISON: No previous studies available for comparison. INDICATIONS : Right pleural effusion. MEDICAL HISTORY : Stroke. Hypertension. Confusion. Diabetes. Anxiety. SURGICAL HISTORY : Tracheostomy. ENCOUNTER: Initial ACUITY: 2 days PAIN SCORE: Nonresponsive. LOCATION: Right chest MEASUREMENTS: SKIN TO PARIETAL PLEURA: 2.1 cm SKIN TO MAX SAFE DEPTH: 4.3 cm ESTIMATED FLUID VOLUME: 969 cc FLUID COMPOSITION: simple FINDINGS: Pleural effusion as above. CONCLUSION: 1. Moderate right pleural effusion, as above. Alejo De La Vega MD on August 02, 2017 at 18:05 Board Certified Radiologist. This report was verified electronically.
[2017-08-02 23:55] VITALS: BP 160/81; PULSE 83; RESP 20; TEMP 96.6; O2SAT 100
[2017-08-03] VITALS (8 sets, daily range): BP systolic 141–156; BP diastolic 67–94; PULSE 82–89; RESP 20; TEMP 95.4–97; O2SAT 90–100
[2017-08-03] MEDS: CEFTOLOZANE-TAZOBACTAM INJ 1,500 MG in SODIUM CHLORIDE 0.9% INJ 100 ML IV SCH ×3 (00:58→17:15)
[2017-08-03] MEDS: ARTIFICIAL TEARS OPTH SOLN 15 ML BTL EACH EYE SCH ×3 (05:37→22:05)
[2017-08-03] MEDS: INSULIN ASPART SUPPLEMENTAL SCALE SQ SCH ×4 (05:39→17:15)
[2017-08-03] MEDS: HEPARIN SODIUM - SQ 10,000 UNITS/ML VIAL SQ SCH ×3 (05:40→22:05)
[2017-08-03] MEDS ORDERED: LACTATED RINGER'S 1000 ML IV PRN (06:30)
[2017-08-03] MEDS: POLYETHYLENE GLYCOL 17 GM PKG PEG SCH (09:00)
[2017-08-03] MEDS: LANSOPRAZOLE SOLUTAB 30 MG TAB NG SCH (09:08)
[2017-08-03] MEDS: LISINOPRIL 10 MG TAB PO SCH ×2 (09:08→22:05)
[2017-08-03] MEDS: CALCIUM/VITAMIN D 250 MG/125 U TAB PO SCH ×3 (09:08→17:15)
[2017-08-03] MEDS: CHOLECALCIFEROL (VIT D3) 5000 UNIT CAP PO SCH (09:08)
[2017-08-03] MEDS: ASPIRIN 325 MG TAB DOBHOFF SCH (09:08)
[2017-08-03] MEDS: INSULIN DETEMIR 100 UNITS/ML VIAL SQ SCH ×2 (09:09→22:32)
[2017-08-03] MEDS: SODIUM CHLORIDE 0.9% FLUSH 5 ML FLUSH IV FLUSH SCH ×2 (09:09→22:05)
[2017-08-03] MEDS: BENEPROTEIN POWDER 1 PACK G-TUBE SCH ×3 (09:09→17:16)
--- NOTE | 2017-08-03 12:31 | HHI.FPPN ---
Subjective Remarks No acute events overnight. Review of systems Limited secondary to mental state. No new changes per nursing staff. (Marcio Meade MD, R3) Objective Vitals Vital Signs Date Time Temp Pulse Resp B/P (MAP) Pulse Ox O2 Delivery O2 Flow Rate FiO2 08/03/17 12:00 95.4 89 20 144/94 (111) 100 08/03/17 09:05 97 Trach Collar 7.00 Humidified 08/03/17 08:00 95.6 89 20 145/89 (107) 93 08/03/17 01:50 97.0 83 20 156/75 (102) 93 08/03/17 00:12 90 T-piece 8.00 50 08/02/17 23:55 96.6 83 20 160/81 (107) 100 08/02/17 21:50 Trach Collar 7.00 Humidified 08/02/17 16:00 95.6 83 20 161/74 (103) 99 I/O 08/02/17 08/02/17 08/02/17 08/03/17 08/03/17 08/03/17 07:00 15:00 23:00 07:00 15:00 23:00 Intake Total 700 ml 701 ml 0 ml Output Total 500 ml 303.0 ml 550 ml Balance 200 ml 398.0 ml -550 ml Intake Oral 0 ml 0 ml 0 ml IV Total 100 ml Tube Feeding 550 ml 701 ml Other 50 ml Output Urine Total 500 ml 300 ml 550 ml Tube Feeding Residual Discard 3.0 ml # Bowel Movements 1 2 (Marcio Meade MD, R3) Result Diagram: 07/31/1781307/31/1714 Objective Remarks CONSTITUTIONAL/GEN: Appears comfortable. NAD. Trach and PEG. HEAD: Normocephalic. Atraumatic. Right side facial droop. LUNGS: Decreased sounds in b/l bases more prominent at left base, Breathing spontaneously via T-tube. CARDIOVASCULAR: NRRR, normal S1/S2, no murmur GI/ABD: Soft, non-distended. No grimacing with palpation. Feeding tube insertion point with no redness, no distention NEURO: PERRL. Not able to track. Flaccid paralysis on the right side. MUSC: SCDs on bilateral lower extremities. Pedal pulses present. SKIN: Sacral pressure ulcer extends from anus to coccyx. Stage II. EXTREMITIES: 1+ pitting edema up to distal tibia of right lower extremity. No edema of LLE. Other: urinary catheter in place. Procedures ORIF 04/21/17 Intubation 04/30/17 Chest tube placement 05/07/17, removed 05/12/17 Trach placement 05/15/17 PEG tube placement 05/16/17 (Marcio Meade MD, R3) A/P Assessment and Plan 76 y/o female with HTN, DM admitted for DKA and hip fracture s/p large CVA after ORIF she is currently stable with her current treatment but has had no meaningful functional recovery and do not anticipate any further neurologic recovery from here on. Dr. Harper, Dr. Tran and case management had a long discussion with the daughter on 07/23 and the patient's daughter is still hopeful for full recovery for her mom in spite of her mom's state of health since her CVA. DW the daughter that it is our belief based on her clinical picture that she will not make any sort of meaningful recovery and will remain on the trach and PEG for the rest of her life. DW the daughter due to her status that the patient will likely continue to decline and continue to acquire infections associated with this type of clinical picture including UTI, PNA, and sepsis. DW the daughter to consider the QOL that her mother would have wanted. We recommend that this patient receive Hospice services as we would not anticipate her living longer than 6 months. The daughter does not want to consider this at this time and she is the sole decision maker for this patient. In that case, we will continue to treat the patient aggressively as issues arise and honor the families wishes. A one-hour long family meeting was held (07/26) with patient's daughter Trice, Dr. Harper, Dr. Watts and patient's nurse to discuss patient's poor prognosis. We felt it was important to listen to daughter's perspective and address any questions or concerns she has about her mother's care. Patient goals of care were also discussed. Daughter still wants aggressive treatment. Daughter was informed that from our medical standpoint we do not anticipated any meaningful recovery from her mother's current baseline. Neither do we anticipate for mother to be able to get off PEG tube feeds and trach. However, we will continue to honor daughter's wishes and provide aggressive medical care. ID and pulmonology are actively following. Patient is currently being treated for MDR pseudomonas pna and pulmonology recommended bronchoscopy. Risk and benefits of the procedure were explained and discussed with daughter. The option for her mother not to have the bronchoscopy and to instead continue treatment with antibiotics was also discussed. She is currently unsure about the procedure. She was advised to take time to think about her decision keeping in mind what her mother's wishes would be. (Marcio Meade MD, R3) Attending Attestation Patient seen and examined. Case reviewed and discussed with the resident team. Agree with plan of care as discussed with me and documented in the resident note. (Adali Meade MD) Problem List: (1) Chronic respiratory failure ICD Codes: J96.10 - Chronic respiratory failure, unspecified whether with hypoxia or hypercapnia Plan: At this point, respiratory failure is chronic on T-tube Hospital Acquired PNA on 07/21 -- repeat CXR on 07/23 does show improvement. sputum culture positive for Multi drug resistant pseudomonas blood cx from 07/21 no growth (final) Repeat blood cultures from 07/25 no growth final Legionella and S pneumonia urine antigen negative -ID following (Dr. Saleh), recommendations appreciated - Continue ceftolozane/ tazobactam - Continue to follow cultures -Pulmonology following (Dr. Rizo), recommended bronchoscopy procedure, daughter refused at this time -CXR 07/29 revealed diffuse bilateral airspace disease with interval worsening on the right, lasix 40mg IV given once for fluid overload -Repeat CXR revealed worsening b/l airspace disease and effusion, slightly worse on the left since 07/29. Right effusion and airspace diases remains larger than the left side. -US chest wall, moderate right pleural effusion. Infection History Pseudomonas hospital-acquired pneumonia - active MSSA bacteremia - resolved Serratia/staph aureus pneumonia - resolved C glabrata UTI - resolved Citrobacter UTI - resolved Serratia/MSSA sputum VAP - resolved Antibiotic History Cefazolin: 04/21-04/22, 05/15-05/16 Cefepime: 04/30-05/04, 05/27-06/03 Ceftrioxone 05/26-05/27 Erythromycin 06/16-06/18, 06/19 Gentamicin 04/21 vancomycin 04/30-05/04, 06/21-06/23 Zosyn 07/21 - 07/25 Azithromycin 07/21 - 07/25 Fluconazole 04/29 - ; 07/26 ceftolozane/ tazobactam 07/25 - present (2) Acute CVA (cerebrovascular accident) ICD Codes: I63.9 - Cerebral infarction, unspecified Status: Chronic Plan: Neurologically stable, no improvement. Overall prognosis is poor. Persistent oxygen requirement See above note about meeting with Daughter on 07/23 and 07/26. Daughter still desires full code and aggressive care -Titrate oxygen via trach to maintain O2 saturation above 92% -Continue tube fees at 45ml/hr 24 hours per day thru peg Tube -Neurosurgery, neurology and palliative care have all been consulted in the past and agree with very poor prognosis with no meaningful neurologic recovery. History and imaging: Patient found minimally responsive with neurological deficits around 0820 04/24. Stat CT of head was ordered, which showed large left MCA infarct. Diffuse edema throughout the left MCA distribution, suggested completed infarct. This was discussed and was not a candidate for intracranial intervention. CT (04/30): Reduction in midline shift to 11mm. Unchanged large left MCA infarction. CT head (05/06) shows: Evolving large left-sided MCA territory infarct with minimally improved lcqb-qk-oabiy subfalcine shift. No intercurrent hemorrhage or other acute abnormality. Echocardiogram- The left ventricular systolic function is low normal with an estimated ejection fraction in the range of 50-55%. Mild concentric left ventricular hypertrophy. Normal left ventricular size. Zmzkg-[id number]-[id number] mitral valve regurgitation. Carotid Artery US- No hemodynamically significant carotid stenosis (3) UTI (urinary tract infection) ICD Codes: N39.0 - Urinary tract infection, site not specified Status: Resolved Plan: UCx on 07/15 positive for E coli Repeat UCx on 07/20 positive for C. Freundii UCx 07/24 grew only yeast - See above for antibiotic history and coverage (4) Sacral decubitus ulcer ICD Codes: L89.159 - Pressure ulcer of sacral region, unspecified stage Status: Chronic Plan: Patient with Stage II pressure injury over the coccyx -Wound care consult appreciated: 1. Please cleanse coccyx wound every 3 days and PRN for soiling. 2. Apply Calcium Alginate to open wound bed. 3. Secure with bordered gauze every 3 days and PRN for soiling. 4. Continue to turn patient every 2 hours or PRN for comfort. 5. Use one ultrasorb for moisture. Please use flat sheet for repositioning. (5) Anemia ICD Codes: D64.9 - Anemia, unspecified Status: Chronic Plan: s/p 1u of PRBC on 05/28/17. Hgb stable Hemoccult negative on 05/29 - monitor H&H periodically Stable 07/31 (6) Urinary retention ICD Codes: R33.9 - Retention of urine, unspecified Status: Chronic Plan: - Leavitt cath done because patient was retaining urine with intermittent cath's - Cath last changed 07/15, pt afebrile - Urine output WNL (7) Type 2 diabetes mellitus ICD Codes: E11.9 - Type 2 diabetes mellitus without complications Status: Chronic Plan: - BSBG ranging 120-222 past 24 hours, requiring 5 units total supplemental insulin -continue to monitor BSG -Decreased Levemir to 15 units q 12 due to BG range below goal. -Will continue to monitor -BS goal 140-180 -Discontinued SSI on 07/16 -AccuCheks QShift -Glucerna for PEG tube feedings @ 45 ml/hr -Glucagon 1 mg per PRN protocol for hypoglycemia BS <70mg/dL History Admitted for DKA which has now resolved. Hemoglobin A1C is 12.9. Diabetes Type II is uncontrolled. (8) Hip fracture ICD Codes: S72.009A - Fracture of unspecified part of neck of unspecified femur , initial encounter for closed fracture Status: Resolved Plan: S/P left hip reduction and intramedullary nail fixation on 04-21-17 -c/w Calcium/Vitamin D (9) Hypertension ICD Codes: I10 - Essential (primary) hypertension Status: Chronic Plan: -Antihypertensives to keep SBP<160, as per critical care recs -c/w clonidine 0.1mg Q6h PRN SBP >160 -c/w lisinopril 20mg Q12h po Echocardiogram 04/24 - EF 50 to 55%. Mild concentric LVH. (10) Fluids, Electrolytes, and Nutrition Status: Acute Plan: Fluids: through PEG tube Electrolyte: Continue to monitor periodically, replete as needed Nutrition: continuous Glucerna tube feeds and free water, pump at 45mls/hr, tolerating feeds well, no residual. Protein 1 pack TID. Supplements: calcium TID and vit D3 QD DVT ppx: SCDs/heparin CVA ppx: aspirin 325 mg QD GI ppx: Lansoprazole 30mg qd via NG Colace, dulcolax PRN (Marcio Meade MD, R3) Problem Qualifiers (1) Chronic respiratory failure: Qualified Codes: J96.11 - Chronic respiratory failure with hypoxia (2) UTI (urinary tract infection): Qualified Codes: N39.0 - Urinary tract infection, site not specified (3) Sacral decubitus ulcer: Qualified Codes: L89.154 - Pressure ulcer of sacral region, stage 4 (4) Type 2 diabetes mellitus: Qualified Codes: E11.9 - Type 2 diabetes mellitus without complications (5) Hip fracture: (6) Hypertension: Qualified Codes: I10 - Essential (primary) hypertension Marcio Meade MD, R3 Aug 03, 2017 12:31 Adali Meade MD Aug 03, 2017 14:21
[2017-08-04] VITALS (8 sets, daily range): BP systolic 120–165; BP diastolic 56–83; PULSE 70–88; RESP 20–24; TEMP 95.6–97.6; O2SAT 93–98
[2017-08-04] MEDS: CEFTOLOZANE-TAZOBACTAM INJ 1,500 MG in SODIUM CHLORIDE 0.9% INJ 100 ML IV SCH ×3 (01:01→17:42)
[2017-08-04] MEDS: cloNIDine HCL 0.1 MG TAB PO PRN (01:16)
[2017-08-04] MEDS: INSULIN ASPART SUPPLEMENTAL SCALE SQ SCH ×4 (01:17→17:35)
[2017-08-04] MEDS: ARTIFICIAL TEARS OPTH SOLN 15 ML BTL EACH EYE SCH ×3 (05:08→23:30)
[2017-08-04] MEDS: HEPARIN SODIUM - SQ 10,000 UNITS/ML VIAL SQ SCH ×3 (05:08→22:00)
[2017-08-04] MEDS: POLYETHYLENE GLYCOL 17 GM PKG PEG SCH (09:00)
[2017-08-04] MEDS: ASPIRIN 325 MG TAB DOBHOFF SCH (09:00)
[2017-08-04] MEDS: LISINOPRIL 10 MG TAB PO SCH ×2 (09:00→23:29)
[2017-08-04] MEDS: CHOLECALCIFEROL (VIT D3) 5000 UNIT CAP PO SCH (09:00)
[2017-08-04] MEDS: INSULIN DETEMIR 100 UNITS/ML VIAL SQ SCH ×2 (09:00→21:00)
[2017-08-04] MEDS: SODIUM CHLORIDE 0.9% FLUSH 5 ML FLUSH IV FLUSH SCH ×2 (09:00→21:00)
[2017-08-04] MEDS: BENEPROTEIN POWDER 1 PACK G-TUBE SCH ×3 (09:00→17:35)
[2017-08-04] MEDS: LANSOPRAZOLE SOLUTAB 30 MG TAB NG SCH (09:00)
[2017-08-04] MEDS: CALCIUM/VITAMIN D 250 MG/125 U TAB PO SCH ×3 (09:00→17:36)
--- NOTE | 2017-08-04 10:56 | HHI.FPPN ---
Subjective Remarks No acute events overnight. Afebrile, vitals stable. +392 fluid balance. 1250 cc noted of UOP. Patient seen and examined this morning. Does not respond to verbal or painful stimuli. Respirations nonlabored. Objective Vitals Vital Signs Date Time Temp Pulse Resp B/P (MAP) Pulse Ox O2 Delivery O2 Flow Rate FiO2 08/04/17 09:40 96 T-piece 40 08/04/17 08:00 95.6 75 20 136/65 (88) 95 08/04/17 04:52 96.6 76 22 121/56 (77) 94 08/04/17 01:45 95.6 88 22 165/83 (110) 93 08/03/17 22:53 T-Piece 7.00 Humidified 08/03/17 20:51 95.9 83 20 143/75 (97) 97 08/03/17 19:40 95 T-piece 50 08/03/17 16:00 96.0 82 20 141/67 (91) 99 08/03/17 13:01 97 T-piece 50 08/03/17 12:00 95.4 89 20 144/94 (111) 100 I/O 08/03/17 08/03/17 08/03/17 08/04/17 08/04/17 08/04/17 07:00 15:00 23:00 07:00 15:00 23:00 Intake Total 0 ml 340 ml 696 ml 606 ml Output Total 550 ml 450 ml 400 ml 400 ml Balance -550 ml -110 ml 296 ml 206 ml Intake Oral 0 ml 0 ml 0 ml IV Total 100 ml 100 ml 100 ml Tube Feeding 476 ml 506 ml Other 240 ml 120 ml Output Urine Total 550 ml 450 ml 400 ml 400 ml # Bowel Movements 2 1 Result Diagram: 07/31/1781307/31/17813 Objective Remarks GEN: Appears comfortable. NAD. Trach and PEG. HEAD: Normocephalic. Atraumatic. Right side facial droop. LUNGS: Decreased sounds in b/l bases more prominent at left base, Breathing spontaneously via T-tube. CARDIOVASCULAR: NRRR, normal S1/S2, no murmur GI/ABD: Soft, non-distended. No grimacing with palpation. Feeding tube insertion point with no redness, no distention NEURO: Not able to track. Flaccid paralysis on the right side. MUSC: SCDs on bilateral lower extremities. Pedal pulses present. SKIN: Sacral pressure ulcer extends from anus to coccyx. Stage II. EXTREMITIES: 1+ pitting edema up to distal tibia of right lower extremity. No edema of LLE. Other: urinary catheter in place. Procedures ORIF 04/21/17 Intubation 04/30/17 Chest tube placement 05/07/17, removed 05/12/17 Trach placement 05/15/17 PEG tube placement 05/16/17 A/P Assessment and Plan 76 y/o female with HTN, DM admitted for DKA and hip fracture s/p large CVA after ORIF she is currently stable with her current treatment but has had no meaningful functional recovery and do not anticipate any further neurologic recovery from here on. Dr. Harper, Dr. Tran and case management had a long discussion with the daughter on 07/23 and the patient's daughter is still hopeful for full recovery for her mom in spite of her mom's state of health since her CVA. DW the daughter that it is our belief based on her clinical picture that she will not make any sort of meaningful recovery and will remain on the trach and PEG for the rest of her life. DW the daughter due to her status that the patient will likely continue to decline and continue to acquire infections associated with this type of clinical picture including UTI, PNA, and sepsis. DW the daughter to consider the QOL that her mother would have wanted. We recommend that this patient receive Hospice services as we would not anticipate her living longer than 6 months. The daughter does not want to consider this at this time and she is the sole decision maker for this patient. In that case, we will continue to treat the patient aggressively as issues arise and honor the families wishes. A one-hour long family meeting was held (07/26) with patient's daughter Trice, Dr. Mac Mon and patient's nurse to discuss patient's poor prognosis. We felt it was important to listen to daughter's perspective and address any questions or concerns she has about her mother's care. Patient goals of care were also discussed. Daughter still wants aggressive treatment. Daughter was informed that from our medical standpoint we do not anticipated any meaningful recovery from her mother's current baseline. Neither do we anticipate for mother to be able to get off PEG tube feeds and trach. However, we will continue to honor daughter's wishes and provide aggressive medical care. ID and pulmonology are actively following. Patient is currently being treated for MDR pseudomonas pna and pulmonology recommended bronchoscopy. Risk and benefits of the procedure were explained and discussed with daughter. The option for her mother not to have the bronchoscopy and to instead continue treatment with antibiotics was also discussed. She is currently unsure about the procedure. She was advised to take time to think about her decision keeping in mind what her mother's wishes would be. Problem List: (1) Chronic respiratory failure ICD Codes: J96.10 - Chronic respiratory failure, unspecified whether with hypoxia or hypercapnia Plan: At this point, respiratory failure is chronic on T-tube Hospital Acquired PNA on 07/21 -- repeat CXR on 07/23 does show improvement. sputum culture positive for Multi drug resistant pseudomonas blood cx from 07/21 no growth (final) Repeat blood cultures from 07/25 no growth final Legionella and S pneumonia urine antigen negative -ID following (Dr. Saleh), recommendations appreciated - Continue ceftolozane/ tazobactam - Continue to follow cultures -Pulmonology following (Dr. Rizo), recommended bronchoscopy procedure, daughter refused at this time -CXR 07/29 revealed diffuse bilateral airspace disease with interval worsening on the right, lasix 40mg IV given once for fluid overload -Repeat CXR revealed worsening b/l airspace disease and effusion, slightly worse on the left since 07/29. Right effusion and airspace diases remains larger than the left side. -US chest wall, moderate right pleural effusion. -Consult IR for US guided thoracentesis Infection History Pseudomonas hospital-acquired pneumonia - active MSSA bacteremia - resolved Serratia/staph aureus pneumonia - resolved C glabrata UTI - resolved Citrobacter UTI - resolved Serratia/MSSA sputum VAP - resolved Antibiotic History Cefazolin: 04/21-04/22, 05/15-05/16 Cefepime: 04/30-05/04, 05/27-06/03 Ceftrioxone 05/26-05/27 Erythromycin 06/16-06/18, 06/19 Gentamicin 04/21 vancomycin 04/30-05/04, 06/21-06/23 Zosyn 07/21 - 07/25 Azithromycin 07/21 - 07/25 Fluconazole 04/29 - ; 07/26 ceftolozane/ tazobactam 07/25 - present (2) Acute CVA (cerebrovascular accident) ICD Codes: I63.9 - Cerebral infarction, unspecified Status: Chronic Plan: Neurologically stable, no improvement. Overall prognosis is poor. Persistent oxygen requirement See above note about meeting with Daughter on 07/23 and 07/26. Daughter still desires full code and aggressive care -Titrate oxygen via trach to maintain O2 saturation above 92% -Continue tube fees at 45ml/hr 24 hours per day thru peg Tube -Neurosurgery, neurology and palliative care have all been consulted in the past and agree with very poor prognosis with no meaningful neurologic recovery. History and imaging: Patient found minimally responsive with neurological deficits around 0820 04/24. Stat CT of head was ordered, which showed large left MCA infarct. Diffuse edema throughout the left MCA distribution, suggested completed infarct. This was discussed and was not a candidate for intracranial intervention. CT (04/30): Reduction in midline shift to 11mm. Unchanged large left MCA infarction. CT head (05/06) shows: Evolving large left-sided MCA territory infarct with minimally improved [id number] subfalcine shift. No intercurrent hemorrhage or other acute abnormality. Echocardiogram- The left ventricular systolic function is low normal with an estimated ejection fraction in the range of 50-55%. Mild concentric left ventricular hypertrophy. Normal left ventricular size. [id number] mitral valve regurgitation. Carotid Artery US- No hemodynamically significant carotid stenosis (3) UTI (urinary tract infection) ICD Codes: N39.0 - Urinary tract infection, site not specified Status: Resolved Plan: UCx on 07/15 positive for E coli Repeat UCx on 07/20 positive for C. Freundii UCx 07/24 grew only yeast - See above for antibiotic history and coverage (4) Sacral decubitus ulcer ICD Codes: L89.159 - Pressure ulcer of sacral region, unspecified stage Status: Chronic Plan: Patient with Stage II pressure injury over the coccyx -Wound care consult appreciated: 1. Please cleanse coccyx wound every 3 days and PRN for soiling. 2. Apply Calcium Alginate to open wound bed. 3. Secure with bordered gauze every 3 days and PRN for soiling. 4. Continue to turn patient every 2 hours or PRN for comfort. 5. Use one ultrasorb for moisture. Please use flat sheet for repositioning. (5) Anemia ICD Codes: D64.9 - Anemia, unspecified Status: Chronic Plan: s/p 1u of PRBC on 05/28/17. Hgb stable Hemoccult negative on 05/29 - monitor H&H periodically Stable 07/31 (6) Urinary retention ICD Codes: R33.9 - Retention of urine, unspecified Status: Chronic Plan: - Leavitt cath done because patient was retaining urine with intermittent cath's - Cath last changed 07/15, pt afebrile - Urine output WNL (7) Type 2 diabetes mellitus ICD Codes: E11.9 - Type 2 diabetes mellitus without complications Status: Chronic Plan: - BSBG ranging 120-222 past 24 hours, requiring 5 units total supplemental insulin -continue to monitor BSG -Decreased Levemir to 15 units q 12 due to BG range below goal. -Will continue to monitor -BS goal 140-180 -Discontinued SSI on 07/16 -AccuCheks QShift -Glucerna for PEG tube feedings @ 45 ml/hr -Glucagon 1 mg per PRN protocol for hypoglycemia BS <70mg/dL History Admitted for DKA which has now resolved. Hemoglobin A1C is 12.9. Diabetes Type II is uncontrolled. (8) Hip fracture ICD Codes: S72.009A - Fracture of unspecified part of neck of unspecified femur , initial encounter for closed fracture Status: Resolved Plan: S/P left hip reduction and intramedullary nail fixation on 04-21-17 -c/w Calcium/Vitamin D (9) Hypertension ICD Codes: I10 - Essential (primary) hypertension Status: Chronic Plan: -Antihypertensives to keep SBP<160, as per critical care recs -c/w clonidine 0.1mg Q6h PRN SBP >160 -c/w lisinopril 20mg Q12h po Echocardiogram 04/24 - EF 50 to 55%. Mild concentric LVH. (10) Fluids, Electrolytes, and Nutrition Status: Acute Plan: Fluids: through PEG tube Electrolyte: Continue to monitor periodically, replete as needed Nutrition: continuous Glucerna tube feeds and free water, pump at 45mls/hr, tolerating feeds well, no residual. Protein 1 pack TID. Supplements: calcium TID and vit D3 QD DVT ppx: SCDs/heparin CVA ppx: aspirin 325 mg QD GI ppx: Lansoprazole 30mg qd via NG Problem Qualifiers (1) Chronic respiratory failure: Qualified Codes: J96.11 - Chronic respiratory failure with hypoxia (2) UTI (urinary tract infection): Qualified Codes: N39.0 - Urinary tract infection, site not specified (3) Sacral decubitus ulcer: Qualified Codes: L89.154 - Pressure ulcer of sacral region, stage 4 (4) Type 2 diabetes mellitus: Qualified Codes: E11.9 - Type 2 diabetes mellitus without complications (5) Hip fracture: (6) Hypertension: Qualified Codes: I10 - Essential (primary) hypertension Jared Ennis MD R2 Aug 04, 2017 10:56
--- NOTE | 2017-08-04 16:42 | HHI.HCPN ---
Reason for visit a. To assist with evaluation and management of symptoms including: Debility and pain. b. To assist medical decision maker(s) with: better understanding of current medical conditions; weighing benefits/burdens of medical treatment options; making medical treatment decisions. . (Ashly Steven) Subjective/Interval History Mrs. Hein is a 76-year-old female with a past medical history of hypertension, diabetes mellitus and CVA who presented to the ED on 04/20/17 via EMS for evaluation of after a fall. Upon ED admission, random glucose 559. Patient underwent Left hip reduction and intramedullary nail fixation on 04/21/17. Clinical course complicated by large left MCA infarct with diffuse edema throughout the left MCA distribution. Medical course further complicated by prolonged hospitalization, tracheostomy status post prolonged ventilation support, pneumonia, deconditioning. Palliative care following for emotional support and further clarifications of goals of care given poor prognosis. Patient seen in her room, resting in bed in no acute distress. Eyes closed, briefly opening eyes to tactile stimuli. Not tracking with eyes or following any commands. Currently on T-piece. Chest x-ray 08/01/17 revealing bilateral airspace disease and effusions, slightly worse on the left since July 29. Chest ultrasound 08/01/17 revealing moderate right pleural effusion. Pulmonology , Dr. Rizo following. Patient's daughter has declined therapeutic bronchoscopy. Patient may need right-sided thoracentesis given pleural effusion. Patient remains afebrile, stable hemodynamically. Remains on T piece at 40% FiO2. No new laboratory data for review. Telephone call to patient's daughter Trice [place]. Medical update provided. Daughter verbalized her wishes to continue aggressive management to include full code and thoracentesis if medically indicated. Daughter reports that she has signed a consent for thoracentesis over the weekend, bedside GREGORY Zuniga to follow-up. gently reviewed likely trajectory of patient's illness given no meaningful neurological recovery observed 3 months poststroke. Reviewed with daughter that a meaningful neurological recovery is not anticipated given the above. Options of treatment to include continuation of aggressive management vs. transition to comfort-directed care with hospice been previously discussed in detail with daughter. Case discussed with bedside GREGORY Zuniga. . Family/friend interactions See interval note. . (Ashly Steven) Advance Directives Living Will: Never completed Health Care Surrogate: Never completed Durable Power of Practice Billing Associate: Never completed (Ashly Steven) Advance Directive Specifics Health Care Surrogate(s): No advance directives completed. As per [place] statute, healthcare proxy decision making falls to patient's only daughter Norma Salvador. . Documented care wishes: No living will completed. . Significant change in goals: Goals of care remain aggressive. . (Ashly Steven) Objective Vital Signs Date Time Temp Pulse Resp B/P (MAP) Pulse Ox O2 Delivery O2 Flow Rate FiO2 08/04/17 16:00 96.9 70 21 120/66 (84) 98 08/04/17 12:00 95.6 80 22 152/72 (98) 95 08/04/17 09:40 96 T-piece 40 08/04/17 08:00 95.6 75 20 136/65 (88) 95 08/04/17 04:52 96.6 76 22 121/56 (77) 94 08/04/17 01:45 95.6 88 22 165/83 (110) 93 08/03/17 22:53 T-Piece 7.00 Humidified 08/03/17 20:51 95.9 83 20 143/75 (97) 97 08/03/17 19:40 95 T-piece 50 Intake & Output 08/04/17 08/04/17 07:00 19:00 Intake Total 606 ml Output Total 400 ml Balance 206 ml Intake Oral 0 ml IV Total 100 ml Tube Feeding 506 ml Output Urine Total 400 ml Physical Exam CONSTITUTIONAL/GENERAL: This is an elderly , ill looking elderly female resting in bed in no acute distress. TUBES/LINES/DRAINS: PIV's. Tracheostomy on T piece, SCD, PEG tube. SKIN: No jaundice, rashes, or lesions. Ecchymoses on upper extremities. Skin temperature appropriate. Not diaphoretic. NECK: Trachea midline. Supple. Tracheostomy in place. CARDIOVASCULAR: Regular rate and rhythm. Peripheral pulses symmetric. RESPIRATORY/CHEST: Symmetric, tracheostomy. Clear breath sounds bilaterally. GASTROINTESTINAL: Abdomen soft, round, mildly distended. Bowel sounds present. PEG tube in place. GENITOURINARY: Without palpable bladder distension. MUSCULOSKELETAL: Extremities without clubbing, cyanosis. Muscle wasting to all 4 extremities. NEUROLOGICAL: Eyes opening spontaneously, not to command, not tracking. PSYCHIATRIC: Unable to evaluate secondary to clinical condition. Appears calm. . (Ashly Steven) Diagnostic Tests Result Diagram: 07/31/1781307/31/17813 Procedures * 05/16/17 -PEG tube placement * 05/15/17 -tracheostomy placement * 05/08/17 -left-sided chest tube/pigtail * 04/30/17 -endotracheal intubation * 04/21/17 -Left hip reduction and intramedullary nail fixation . (Ashly Steven) Assessment and Plan Disease Oriented Problem List: (1) Pleural effusion (2) Acute respiratory failure (3) Acute CVA (cerebrovascular accident) (4) Atrial fibrillation with RVR (5) Physical deconditioning Symptom Scale: (1) Shortness of breath 0-10 Scale: Unable to quantify Comment: Currently trached on T piece. (2) Debility 0-10 Scale: Unable to quantify Comment: Progressive. (3) Pain 0-10 Scale: Unable to quantify Comment: Secondary to surgical intervention, bedbound status, prolonged hospitalization. Pertinent Non-Medical Issues Psychosocial: Patient is originally from [facility]. Residing in [place] up until 2013 she moved to [place] to live with only daughter Trice. Patient is a , in 2006. Spiritual: No church affiliation. Legal: No advance directives completed. Ethical issues impacting care: Patient unable to participating in medical decision-making secondary to clinical condition. Patient's daughter acting as healthcare proxy decision maker. . Important Contacts Daughter Norma Salvador . . Prognosis Mrs. Hein needs a 76-year-old female with a past medical history of hypertension, diabetes mellitus and prior CVA. Presented with left hip fracture , underwent ORIF. Clinical course complicated by large left MCA infarct with edema. Overall prognosis is poor for a meaningful neurological recovery or long -term survival given acute stroke, chronic ongoing comorbidities and advanced age. Patient appears hospice appropriate should family elect comfort-directed care. . Code Status: Full Code Plan * CODE STATUS: FULL CODE. * HEALTHCARE DECISION-MAKING: Patient not capacitated for medical decision- making given severe large stroke, not expected to regain capacity. No advance directives completed, patient is . As per [place] statute, healthcare proxy decision-making falls to patient's only daughter Trice Salvador. * GOALS OF CARE: 08/04/17 -Daughter Trice Salvador acting as healthcare proxy decision maker is electing to continue aggressive management to include full code and thoracentesis if clinically indicated. * Telephone conversation with patient's daughter Trice Salvador. Medical update provided. Daughter verbalized her wishes to continue aggressive management to include full code and thoracentesis if medically indicated. Gently reviewed likely trajectory of patient's illness given no meaningful neurological recovery observed 3 months poststroke. Reviewed with daughter that a meaningful neurological recovery is not anticipated given the above. Options of treatment to include continuation of aggressive management vs. transition to comfort-directed care with hospice have been previously discussed in detail with daughter. * SYMPTOMS: * = Shortness of breath, multifactorial. Secondary to altered mental status/CVA , pneumonia, lethargy. Now trached and on T piece. Sputum culture 07/21/17 growing Pseudomonas Aeruginosa. Pulmonology following. Persistent pleural effusions, pending thoracentesis. = Pain, secondary to bedbound state, tracheostomy, pressure ulcers, prolonged hospitalization. Patient does not appear to be in pain at this time. = Debility, progressive. Likely to continue to worsen given recent acute stroke and prolonged hospitalization. * This discussed with bedside RN Nadia. * Difficult disposition, long-term plans for this patient are impacted by her psychosocial situation, no coverage/no payer source for long-term placement or rehab. * Palliative care contact information has been provided to patient's daughter. * Palliative care will continue to follow-up as needed for further clarifications of goals of care as patient's clinical condition continues to evolve. Goals of therapy are established at this time. . (Ashly Steven) Time Spent Total Floor Time (mins): 24 (Total time to include review medical records, physical exam, goals of care conversation with patient's daughter, case discussion with bedside RN.) >50% Counseling/Coord of Care: Yes (Ashly Steven) Attestation To help prompt me to consider important information that might be impacting today's encounter and assessment, information from prior notes written by myself or my colleagues may have been "brought forward" into today's note. My signature on this note, however, is an attestation that I personally performed the exam, history, and/or decision-making noted today, and, unless otherwise indicated, the interactions with patient, family, and staff as well as the review of records all occurred today. I also attest that the listed assessment and stated plan reflect my best clinical judgment today based on the combination of historical information, prior notes, and today's exam/ interactions. When time spent is documented, it refers only to time spent today by the signer, or if indicated, combined time spent today by collaborating physician/nurse practitioner. (Ashly Steven) Collaborating MD Comments Chart reviewed. Case discussed with palliative care INTERNATIONAL PROJECT MANAGER. Above INTERNATIONAL PROJECT MANAGER note reviewed and I concur. . (Vamsi Minaya MD) Ashly Steven Aug 04, 2017 16:42 Vamsi Minaya MD Sep 07, 2017 08:44
--- NOTE | 2017-08-04 16:45 | HHI.PR ---
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 Looks around Small amount of trach secretions No distress US chest mod pl effusion Objective Vital Signs Vital Signs Date Time Temp Pulse Resp B/P (MAP) Pulse Ox O2 Delivery O2 Flow Rate FiO2 08/04/17 16:00 96.9 70 21 120/66 (84) 98 08/04/17 12:00 95.6 80 22 152/72 (98) 95 08/04/17 09:40 96 T-piece 40 08/04/17 08:00 95.6 75 20 136/65 (88) 95 08/04/17 04:52 96.6 76 22 121/56 (77) 94 08/04/17 01:45 95.6 88 22 165/83 (110) 93 08/03/17 22:53 T-Piece 7.00 Humidified 08/03/17 20:51 95.9 83 20 143/75 (97) 97 08/03/17 19:40 95 T-piece 50 I/O 08/03/17 08/03/17 08/03/17 08/04/17 08/04/17 08/04/17 07:00 15:00 23:00 07:00 15:00 23:00 Intake Total 0 ml 340 ml 696 ml 606 ml Output Total 550 ml 450 ml 400 ml 400 ml Balance -550 ml -110 ml 296 ml 206 ml Intake Oral 0 ml 0 ml 0 ml IV Total 100 ml 100 ml 100 ml Tube Feeding 476 ml 506 ml Other 240 ml 120 ml Output Urine Total 550 ml 450 ml 400 ml 400 ml # Bowel Movements 2 1 Result Diagram: 07/31/1781307/31/17813 Objective Remarks GENERAL: Elderly female,NAD SKIN: Warm and dry. HEAD: Normocephalic. EYES: No scleral icterus. No injection or drainage. NECK: Supple, trachea midline. No JVD or lymphadenopathy. CARDIOVASCULAR: Regular rate and rhythm without murmurs, gallops, or rubs. RESPIRATORY: Breath sounds equal bilaterally. No accessory muscle use. GASTROINTESTINAL: Abdomen soft, non-tender, nondistended. MUSCULOSKELETAL: No cyanosis, or edema. BACK: Nontender without obvious deformity. No CVA tenderness. A/P Assessment and Plan RF,S/P Trach CVA Pneumonia Pleural effusion PLAN: Cont Abx Aerosol nebs Supplement 02 Trach care TF Palliative care evaluating pt. IR for TC if daughter agrees. Chris Rizo MD Aug 04, 2017 16:45
[2017-08-04 17:43] LABS: HEMATOCRIT 31.5 % (35.0-46.0); HEMOGLOBIN 10.1 GM/DL (11.6-15.3); MEAN CELL VOLUME 99.9 FL (80.0-100.0); MEAN CORPUSCULAR HEMOGLOBIN 32.2 PG (27.0-34.0); MEAN CORPUSCULAR HGB CONC 32.2 % (32.0-36.0); PLATELET COUNT 198 TH/MM3 (150-450); RED BLOOD COUNT 3.15 MIL/MM3 (4.00-5.30); RED CELL DISTRIBUTION WIDTH 17.1 % (11.6-17.2); WHITE BLOOD COUNT 10.4 TH/MM3 (4.0-11.0)
[2017-08-04 17:49] LABS: INTERNATIONAL NORMALIZED RATIO 1.1 RATIO; PROTHROMBIN TIME - PATIENT 11.4 SEC (9.8-11.6)
[2017-08-05] VITALS (7 sets, daily range): BP systolic 154–183; BP diastolic 72–86; PULSE 83–95; RESP 15–22; TEMP 96.2–98.6; O2SAT 81–97
[2017-08-05] MEDS: CEFTOLOZANE-TAZOBACTAM INJ 1,500 MG in SODIUM CHLORIDE 0.9% INJ 100 ML IV SCH ×3 (01:52→19:15)
[2017-08-05] MEDS: HEPARIN SODIUM - SQ 10,000 UNITS/ML VIAL SQ SCH ×3 (05:55→21:16)
[2017-08-05] MEDS: ARTIFICIAL TEARS OPTH SOLN 15 ML BTL EACH EYE SCH ×3 (05:55→21:34)
[2017-08-05] MEDS: INSULIN ASPART SUPPLEMENTAL SCALE SQ SCH ×4 (05:55→18:00)
[2017-08-05 08:28] LABS: ALBUMIN 2.3 GM/DL (3.4-5.0); AST (GOT) 37 U/L (15-37); BICARBONATE 29.8 MEQ/L (21.0-32.0); BLOOD UREA NITROGEN 46 MG/DL (7-18); CALCIUM 8.8 MG/DL (8.5-10.1); CHLORIDE 104 MEQ/L (98-107); CREATININE 0.34 MG/DL (0.50-1.00); GLOMERULAR FILTRATION RATE 188 ML/MIN (>89); GLUCOSE,RANDOM 121 MG/DL (74-106); SODIUM (NA) 140 MEQ/L (136-145)
[2017-08-05 08:29] LABS: ALT (GPT) 37 U/L (10-53)
[2017-08-05 08:32] LABS: ALKALINE PHOSPHATASE 429 U/L (45-117); TOTAL BILIRUBIN ADULT 0.2 MG/DL (0.2-1.0); TOTAL PROTEIN 6.8 GM/DL (6.4-8.2)
[2017-08-05] MEDS: SODIUM CHLORIDE 0.9% FLUSH 5 ML FLUSH IV FLUSH SCH ×2 (09:00→21:18)
[2017-08-05] MEDS: BENEPROTEIN POWDER 1 PACK G-TUBE SCH ×3 (09:00→18:00)
[2017-08-05] MEDS: POLYETHYLENE GLYCOL 17 GM PKG PEG SCH (09:00)
--- NOTE | 2017-08-05 09:43 | HHI.FPPN ---
Subjective Remarks No acute events overnight. Afebrile, vitals stable. Patient seen and examined this AM. NAD, lying in bed with eyes closed. Not responsive to verbal or painful stimuli. 1350 cc UOP. Objective Vitals Vital Signs Date Time Temp Pulse Resp B/P (MAP) Pulse Ox O2 Delivery O2 Flow Rate FiO2 08/05/17 08:00 97.1 83 17 164/82 (109) 95 08/05/17 04:00 98.6 85 22 162/72 (102) 97 08/05/17 00:00 97.5 89 22 169/81 (110) 95 08/04/17 21:02 98 T-piece 40 08/04/17 20:00 97.6 85 24 157/82 (107) 95 08/04/17 19:00 100 Trach Collar 7.00 40 T-Piece 08/04/17 16:00 96.9 70 21 120/66 (84) 98 08/04/17 12:00 95.6 80 22 152/72 (98) 95 I/O 08/04/17 08/04/17 08/04/17 08/05/17 08/05/17 08/05/17 07:00 15:00 23:00 07:00 15:00 23:00 Intake Total 606 ml 100 ml 100 ml Output Total 400 ml 300 ml 1050 ml Balance 206 ml 100 ml -200 ml -1050 ml Intake Oral 0 ml 0 ml IV Total 100 ml 100 ml 100 ml Tube Feeding 506 ml Output Urine Total 400 ml 300 ml 1050 ml # Bowel Movements 1 3 Result Diagram: 08/04/17 1644 08/05/17 0628 Objective Remarks GEN: Appears comfortable. NAD. Trach and PEG. HEAD: Normocephalic. Atraumatic. Right side facial droop. LUNGS: Decreased sounds in b/l bases more prominent at left base, breathing spontaneously via T-tube. CARDIOVASCULAR: NRRR, normal S1/S2, no murmur GI/ABD: Soft, non-distended. No grimacing with palpation. Feeding tube insertion point with no redness, no distention NEURO: Not able to track. Flaccid paralysis on the right side. MUSC: SCDs on bilateral lower extremities. Pedal pulses present. SKIN: Sacral pressure ulcer extends from anus to coccyx. Stage II. EXTREMITIES: 1+ pitting edema up to distal tibia of right lower extremity. No edema of LLE. Other: urinary catheter in place. Procedures ORIF 04/21/17 Intubation 04/30/17 Chest tube placement 05/07/17, removed 05/12/17 Trach placement 05/15/17 PEG tube placement 05/16/17 A/P Assessment and Plan 76 y/o female with HTN, DM admitted for DKA and hip fracture s/p large CVA after ORIF she is currently stable with her current treatment but has had no meaningful functional recovery and do not anticipate any further neurologic recovery from here on. Dr. Harper, Dr. Tran and case management had a long discussion with the daughter on 07/23 and the patient's daughter is still hopeful for full recovery for her mom in spite of her mom's state of health since her CVA. DW the daughter that it is our belief based on her clinical picture that she will not make any sort of meaningful recovery and will remain on the trach and PEG for the rest of her life. DW the daughter due to her status that the patient will likely continue to decline and continue to acquire infections associated with this type of clinical picture including UTI, PNA, and sepsis. DW the daughter to consider the QOL that her mother would have wanted. We recommend that this patient receive Hospice services as we would not anticipate her living longer than 6 months. The daughter does not want to consider this at this time and she is the sole decision maker for this patient. In that case, we will continue to treat the patient aggressively as issues arise and honor the families wishes. A one-hour long family meeting was held (07/26) with patient's daughter Trice, Dr. Harper, Dr. Watts and patient's nurse to discuss patient's poor prognosis. We felt it was important to listen to daughter's perspective and address any questions or concerns she has about her mother's care. Patient goals of care were also discussed. Daughter still wants aggressive treatment. Daughter was informed that from our medical standpoint we do not anticipated any meaningful recovery from her mother's current baseline. Neither do we anticipate for mother to be able to get off PEG tube feeds and trach. However, we will continue to honor daughter's wishes and provide aggressive medical care. ID and pulmonology are actively following. Patient is currently being treated for MDR pseudomonas pna and pulmonology recommended bronchoscopy. Risk and benefits of the procedure were explained and discussed with daughter. The option for her mother not to have the bronchoscopy and to instead continue treatment with antibiotics was also discussed. She is currently unsure about the procedure. She was advised to take time to think about her decision keeping in mind what her mother's wishes would be. Problem List: (1) Chronic respiratory failure ICD Codes: J96.10 - Chronic respiratory failure, unspecified whether with hypoxia or hypercapnia Plan: At this point, respiratory failure is chronic on T-tube Hospital Acquired PNA on 07/21 CXR 08/01 demonstrating bilateral airspace disease and effusions, R>L sputum culture positive for Multi drug resistant pseudomonas Blood cultures from 07/21 no growth (final) Repeat blood cultures from 07/25 no growth final Legionella and S pneumonia urine antigen negative -ID following (Dr. Saleh), recommendations appreciated - Continue ceftolozane/ tazobactam - Continue to follow cultures -Pulmonology following (Dr. Rizo), recommended bronchoscopy procedure, daughter refused at this time -CXR 07/29 revealed diffuse bilateral airspace disease with interval worsening on the right, lasix 40mg IV given once for fluid overload -Repeat CXR revealed worsening b/l airspace disease and effusion, slightly worse on the left since 07/29. Right effusion and airspace diases remains larger than the left side. -US chest wall, moderate right pleural effusion. -Consult IR for US guided thoracentesis Infection History Pseudomonas hospital-acquired pneumonia - active MSSA bacteremia - resolved Serratia/staph aureus pneumonia - resolved C glabrata UTI - resolved Citrobacter UTI - resolved Serratia/MSSA sputum VAP - resolved Antibiotic History Cefazolin: 04/21-04/22, 05/15-05/16 Cefepime: 04/30-05/04, 05/27-06/03 Ceftrioxone 05/26-05/27 Erythromycin 06/16-06/18, 06/19 Gentamicin 04/21 vancomycin 04/30-05/04, 06/21-06/23 Zosyn 07/21 - 07/25 Azithromycin 07/21 - 07/25 Fluconazole 04/29 - ; 07/26 ceftolozane/ tazobactam 07/25 - present (2) Pleural effusion ICD Codes: J90 - Pleural effusion, not elsewhere classified Status: Acute Plan: US chest 08/01 demonstrating moderate right pleural effusion IR consulted for US guided thoracentesis Further plan as above (3) Acute CVA (cerebrovascular accident) ICD Codes: I63.9 - Cerebral infarction, unspecified Status: Chronic Plan: Neurologically stable, no improvement. Overall prognosis is poor. Persistent oxygen requirement See above note about meeting with Daughter on 07/23 and 07/26. Daughter still desires full code and aggressive care -Titrate oxygen via trach to maintain O2 saturation above 92% -Continue tube fees at 45ml/hr 24 hours per day thru peg Tube -Neurosurgery, neurology and palliative care have all been consulted in the past and agree with very poor prognosis with no meaningful neurologic recovery. History and imaging: Patient found minimally responsive with neurological deficits around 0820 04/24. Stat CT of head was ordered, which showed large left MCA infarct. Diffuse edema throughout the left MCA distribution, suggested completed infarct. This was discussed and was not a candidate for intracranial intervention. CT (04/30): Reduction in midline shift to 11mm. Unchanged large left MCA infarction. CT head (05/06) shows: Evolving large left-sided MCA territory infarct with minimally improved uuvk-rj-innji subfalcine shift. No intercurrent hemorrhage or other acute abnormality. Echocardiogram- The left ventricular systolic function is low normal with an estimated ejection fraction in the range of 50-55%. Mild concentric left ventricular hypertrophy. Normal left ventricular size. Bhmnx-nk-sqxk mitral valve regurgitation. Carotid Artery US- No hemodynamically significant carotid stenosis (4) UTI (urinary tract infection) ICD Codes: N39.0 - Urinary tract infection, site not specified Status: Resolved Plan: UCx on 07/15 positive for E coli Repeat UCx on 07/20 positive for C. Freundii UCx 07/24 grew only yeast - See above for antibiotic history and coverage (5) Sacral decubitus ulcer ICD Codes: L89.159 - Pressure ulcer of sacral region, unspecified stage Status: Chronic Plan: Patient with Stage II pressure injury over the coccyx -Wound care consult appreciated: 1. Please cleanse coccyx wound every 3 days and PRN for soiling. 2. Apply Calcium Alginate to open wound bed. 3. Secure with bordered gauze every 3 days and PRN for soiling. 4. Continue to turn patient every 2 hours or PRN for comfort. 5. Use one ultrasorb for moisture. Please use flat sheet for repositioning. (6) Anemia ICD Codes: D64.9 - Anemia, unspecified Status: Chronic Plan: s/p 1u of PRBC on 05/28/17. Hgb stable Hemoccult negative on 05/29 - monitor H&H periodically Stable 07/31 (7) Urinary retention ICD Codes: R33.9 - Retention of urine, unspecified Status: Chronic Plan: - Leavitt cath done because patient was retaining urine with intermittent cath's - Cath last changed 07/15, pt afebrile - Urine output WNL (8) Type 2 diabetes mellitus ICD Codes: E11.9 - Type 2 diabetes mellitus without complications Status: Chronic Plan: - BSBG ranging 120-222 past 24 hours, requiring 5 units total supplemental insulin -continue to monitor BSG -Decreased Levemir to 15 units q 12 due to BG range below goal. -Will continue to monitor -BS goal 140-180 -Discontinued SSI on 07/16 -AccuCheks QShift -Glucerna for PEG tube feedings @ 45 ml/hr -Glucagon 1 mg per PRN protocol for hypoglycemia BS <70mg/dL History Admitted for DKA which has now resolved. Hemoglobin A1C is 12.9. Diabetes Type II is uncontrolled. (9) Hip fracture ICD Codes: S72.009A - Fracture of unspecified part of neck of unspecified femur , initial encounter for closed fracture Status: Resolved Plan: S/P left hip reduction and intramedullary nail fixation on 04-21-17 -c/w Calcium/Vitamin D (10) Hypertension ICD Codes: I10 - Essential (primary) hypertension Status: Chronic Plan: -Antihypertensives to keep SBP<160, as per critical care recs -c/w clonidine 0.1mg Q6h PRN SBP >160 -c/w lisinopril 20mg Q12h po Echocardiogram 04/24 - EF 50 to 55%. Mild concentric LVH. (11) Fluids, Electrolytes, and Nutrition Status: Acute Plan: Fluids: through PEG tube Electrolyte: Continue to monitor periodically, replete as needed Nutrition: continuous Glucerna tube feeds and free water, pump at 45mls/hr, tolerating feeds well, no residual. Protein 1 pack TID. Supplements: calcium TID and vit D3 QD DVT ppx: SCDs/heparin CVA ppx: aspirin 325 mg QD GI ppx: Lansoprazole 30mg qd via NG Problem Qualifiers (1) Chronic respiratory failure: Qualified Codes: J96.11 - Chronic respiratory failure with hypoxia (2) UTI (urinary tract infection): Qualified Codes: N39.0 - Urinary tract infection, site not specified (3) Sacral decubitus ulcer: Qualified Codes: L89.154 - Pressure ulcer of sacral region, stage 4 (4) Type 2 diabetes mellitus: Qualified Codes: E11.9 - Type 2 diabetes mellitus without complications (5) Hip fracture: (6) Hypertension: Qualified Codes: I10 - Essential (primary) hypertension Jared Ennis MD R2 Aug 05, 2017 09:43
[2017-08-05] MEDS: CALCIUM/VITAMIN D 250 MG/125 U TAB PO SCH ×3 (10:09→19:16)
[2017-08-05] MEDS: LISINOPRIL 10 MG TAB PO SCH ×2 (10:09→21:16)
[2017-08-05] MEDS: CHOLECALCIFEROL (VIT D3) 5000 UNIT CAP PO SCH (10:09)
[2017-08-05] MEDS: ASPIRIN 325 MG TAB DOBHOFF SCH (10:10)
[2017-08-05] MEDS: LANSOPRAZOLE SOLUTAB 30 MG TAB NG SCH (10:10)
[2017-08-05] MEDS: INSULIN DETEMIR 100 UNITS/ML VIAL SQ SCH ×2 (10:11→21:17)
--- NOTE | 2017-08-05 11:13 | HHI.PR ---
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 Looks around Small amount of trach secretions No distress Objective Vital Signs Vital Signs Date Time Temp Pulse Resp B/P (MAP) Pulse Ox O2 Delivery O2 Flow Rate FiO2 08/05/17 08:00 97.1 83 17 164/82 (109) 95 08/05/17 04:00 98.6 85 22 162/72 (102) 97 08/05/17 00:00 97.5 89 22 169/81 (110) 95 08/04/17 21:02 98 T-piece 40 08/04/17 20:00 97.6 85 24 157/82 (107) 95 08/04/17 19:00 100 Trach Collar 7.00 40 T-Piece 08/04/17 16:00 96.9 70 21 120/66 (84) 98 08/04/17 12:00 95.6 80 22 152/72 (98) 95 I/O 08/04/17 08/04/17 08/04/17 08/05/17 08/05/17 08/05/17 07:00 15:00 23:00 07:00 15:00 23:00 Intake Total 606 ml 100 ml 100 ml Output Total 400 ml 300 ml 1050 ml Balance 206 ml 100 ml -200 ml -1050 ml Intake Oral 0 ml 0 ml IV Total 100 ml 100 ml 100 ml Tube Feeding 506 ml Output Urine Total 400 ml 300 ml 1050 ml # Bowel Movements 1 3 Result Diagram: 08/04/17 1644 08/05/17 0628 Objective Remarks GENERAL: Elderly female,NAD SKIN: Warm and dry. HEAD: Normocephalic. EYES: No scleral icterus. No injection or drainage. NECK: Supple, trachea midline. No JVD or lymphadenopathy. CARDIOVASCULAR: Regular rate and rhythm without murmurs, gallops, or rubs. RESPIRATORY: Breath sounds equal bilaterally. No accessory muscle use. GASTROINTESTINAL: Abdomen soft, non-tender, nondistended. MUSCULOSKELETAL: No cyanosis, or edema. BACK: Nontender without obvious deformity. No CVA tenderness. A/P Assessment and Plan RF,S/P Trach CVA Pneumonia Pleural effusion PLAN: Cont Abx Aerosol nebs Supplement 02 Trach care TF Palliative care evaluating pt. Chris Rizo MD Aug 05, 2017 11:13
--- NOTE | 2017-08-05 16:43 | PD.RAD ---
Post CT Procedure Prog Note Pre Procedure Diagnosis: (1) Pleural effusion Post Procedure Diagnosis: (1) Pleural effusion Procedure Date: Aug 05, 2017 Supervising Radiologist: Sage Adler Anesthesia: Local, Analgesia Plan of Activity Patient to Unit: Critical Care Patient Condition: Poor See PACS Report for procedural detail/treatment Drainage Procedure Procedure 1 Imaging Guidance: CT Side: Right Procedure Type: Thoracentesis Procedure: Removal Drainage: Suction Fluid Removal (CCs): 1450 Fluid Description: Clear, Yellow Sage Adler MD Aug 05, 2017 16:43
--- NOTE | 2017-08-05 17:10 | RADRPT ---
EXAM DATE/TIME: 08/05/2017 16:08 INDICATIONS : Right chest fluid DEVICE(S): 1.) 6 Fr [id number] FLUID: Total volume of 1450 cc of clear, yellow fluid was removed. Fluid was sent for laboratory ordered studies. MEDICAL HISTORY : Hypertension. Cerebrovascular disease. diabetes SURGICAL HISTORY : None. ENCOUNTER: Initial ACUITY: 1 day PAIN SCORE: Non-responsive LOCATION: Right chest PROCEDURE: 1. CT guided right thoracentesis. The site was prepped in sterile fashion. Full sterile technique was used, including cap, mask, steri le gloves and gown and a large sterile sheet. Hand hygiene and 2% chlorhexidine and/or betadine/alco hol prep was utilized per protocol for cutaneous antisepsis. The skin and subcutaneous tissues were infiltrated with local anesthetic solution. Using automated exposure control and adjustment of the mA and/or kV according to patient size, radiation dose was kept as low as reasonably achievable to obta in optimal diagnostic quality images. DICOM format image data is available electronically for review and comparison. With the patient supine on the CT table, shear scrapman images were obtained through the chest demonstrating t he right sided pleural effusion. Dermatotomy was made and the prescribed catheter was advanced into the pleural fluid. The pleural fluid as above was removed from the hemithorax. Post procedural scan show reduction in the amount of fluid with no evidence of pneumothorax. The patient tolerated the procedure well and there were no complications. EKG and oximetry remained s table throughout the procedure. The patient was sent to recovery in stable condition. CONCLUSION: Uncomplicated CT-guided thoracentesis. Sage Adler MD on August 05, 2017 at 17:07 Board Certified Radiologist. This report was verified electronically.
--- NOTE | 2017-08-05 17:30 | RADRPT ---
EXAM DATE/TIME: 08/05/2017 16:59 [facility] COMPARISON: CT GUIDED THORACENTESIS RIGHT, August 05, 2017, 16:08. INDICATIONS : Post thoracentesis. MEDICAL HISTORY : Stroke. Hypertension. Confusion. Diabetes. Anxiety SURGICAL HISTORY : Tracheostomy. ENCOUNTER: Initial ACUITY: 1 day PAIN SCORE: Non-responsive. LOCATION: Bilateral chest FINDINGS: Trach tube in good position. There is no pneumothorax on the right following thoracentesis. Small p neumothorax is present on the left. Costophrenic changes both lungs. CONCLUSION: Negative pneumothorax following right thoracentesis. Ricardo Middleton MD FACR on August 05, 2017 at 17:28 Board Certified Radiologist. This report was verified electronically.
[2017-08-05] MEDS ORDERED: LIDOCAINE 1%/EPINEPHrine 1:100,000 SOLN 20 ML VIAL ONE (17:58)
[2017-08-06] VITALS (7 sets, daily range): BP systolic 132–165; BP diastolic 61–86; PULSE 79–90; RESP 15–20; TEMP 95.9–97.6; O2SAT 94–100
[2017-08-06] MEDS: CEFTOLOZANE-TAZOBACTAM INJ 1,500 MG in SODIUM CHLORIDE 0.9% INJ 100 ML IV SCH ×2 (02:06→08:25)
[2017-08-06] MEDS: INSULIN ASPART SUPPLEMENTAL SCALE SQ SCH ×4 (05:47→16:41)
[2017-08-06] MEDS: HEPARIN SODIUM - SQ 10,000 UNITS/ML VIAL SQ SCH ×3 (05:48→20:47)
[2017-08-06] MEDS: ARTIFICIAL TEARS OPTH SOLN 15 ML BTL EACH EYE SCH ×3 (05:49→20:48)
[2017-08-06] MEDS: CALCIUM/VITAMIN D 250 MG/125 U TAB PO SCH ×3 (08:21→16:43)
[2017-08-06] MEDS: LANSOPRAZOLE SOLUTAB 30 MG TAB NG SCH (08:22)
[2017-08-06] MEDS: POLYETHYLENE GLYCOL 17 GM PKG PEG SCH (08:22)
[2017-08-06] MEDS: CHOLECALCIFEROL (VIT D3) 5000 UNIT CAP PO SCH (08:22)
[2017-08-06] MEDS: ASPIRIN 325 MG TAB DOBHOFF SCH (08:24)
[2017-08-06] MEDS: INSULIN DETEMIR 100 UNITS/ML VIAL SQ SCH ×2 (08:24→21:08)
[2017-08-06] MEDS: LISINOPRIL 10 MG TAB PO SCH ×2 (08:24→20:47)
[2017-08-06] MEDS: BENEPROTEIN POWDER 1 PACK G-TUBE SCH ×3 (08:25→16:44)
[2017-08-06] MEDS: SODIUM CHLORIDE 0.9% FLUSH 5 ML FLUSH IV FLUSH SCH ×2 (08:25→20:48)
--- NOTE | 2017-08-06 12:59 | HHI.IDPN ---
Subjective Subjective Remarks is a 76 y/o CF with PMHx of stroke, diabetes mellitus who was admitted with DKA and a hip fracture for which she underwent ORIF on 04/21. While in hospital recovering, patient developed altered mental status. Due to worsening mental status a stroke alert was called. Head CT showed large left MCA territory ischemic infarct with edema. Patient was transferred to the ICU by family medicine service and critical care consult was requested. At the time of evaluation in [facility], patient was opening her eyes however not following commands and had a dense right hemiplegia. Patient was also evaluated by Dr. Malave from neurology. At baseline, the patient lives with her daughter since her stroke in 2014 and does ambulate however has been having problems with memory and incontinence as well as gait difficulties. She does not feel patient would want intubation or tracheostomy or PEG tube. On 05/01/17 patient was intubated for severe hypoxemic respiratory failure from aspiration pneumonia. She also had a temp of 101 F. Blood culture and sputum culture with staph aureus sputum also growing GNR, WBC count 22,000 now indicating worsening sepsis. 05/06/[address] head with massive left MCA infarction and > 1 cm shift in right handed woman. Meanwhile patient is also being treated for C.glabrata UTI. At the time of my evaluation, patient is in [facility] on ventilator. She spontaneously opens eyes, did not follow commands for me. She underwent a CT A/ P which shows a left side pneumothorax. is placing a pigtail chest tube. She has a moser in place but no central line. ID is consulted for evaluation and Mment of Sepsis, MSSA and aspiration pneumonia, C.glabrata UTI. Overnight events reviewed with RN. No fevers 3 BM's but on tube feeds. Secretions biggs small to moderate. PEG tube and trach site ok. Does not track or follow commands. Sitting in a chair, opens eyes but no meaningful interaction. UO ok. Antibiotics Zerbaxa IV Lines Line sites with no e.o infection. Past Medical History reviewed Allergies: Coded Allergies: No Known Allergies (Unverified , 04/20/17) Objective . Vital Signs Date Time Temp Pulse Resp B/P (MAP) Pulse Ox O2 Delivery O2 Flow Rate FiO2 08/06/17 12:00 97.6 79 17 132/63 (86) 94 08/06/17 08:30 100 T-piece 5.00 35 12/6/17 08:30 100 T-piece 5.00 35 08/06/17 08:25 97 Trach Collar 7.00 35 Humidified 08/06/17 08:00 96.7 88 15 165/86 (112) 97 08/06/17 04:00 96.8 90 20 147/84 (105) 94 08/06/17 00:00 96.3 89 20 158/61 (93) 94 08/05/17 20:00 94 Trach Collar 7.00 35 08/05/17 20:00 96.2 93 20 160/74 (102) 92 08/05/17 17:57 95 T-piece 6.00 40 08/05/17 17:57 95 T-piece 6.00 40 08/05/17 17:22 96.2 95 15 183/86 (118) 85 08/06/17 08/06/17 08/07/17 15:00 23:00 07:00 Intake Total 100 ml Balance 100 ml IV Total 100 ml . Laboratory Tests Test 08/04/17 16:44 White Blood Count 10.4 TH/MM3 Red Blood Count 3.15 MIL/MM3 Hemoglobin 10.1 GM/DL Hematocrit 31.5 % Mean Corpuscular Volume 99.9 FL Mean Corpuscular Hemoglobin 32.2 PG Mean Corpuscular Hemoglobin Concent 32.2 % Red Cell Distribution Width 17.1 % Platelet Count 198 TH/MM3 Mean Platelet Volume 10.0 FL Laboratory Tests Test 08/05/17 06:28 Blood Urea Nitrogen 46 MG/DL Creatinine 0.34 MG/DL Random Glucose 121 MG/DL Total Protein 6.8 GM/DL Albumin 2.3 GM/DL Calcium Level 8.8 MG/DL Alkaline Phosphatase 429 U/L Aspartate Amino Transf (AST/SGOT) 37 U/L Alanine Aminotransferase (ALT/SGPT) 37 U/L Total Bilirubin 0.2 MG/DL Sodium Level 140 MEQ/L Potassium Level 4.2 MEQ/L Chloride Level 104 MEQ/L Carbon Dioxide Level 29.8 MEQ/L Anion Gap 6 MEQ/L Estimat Glomerular Filtration Rate 188 ML/MIN Microbiology Date/Time Source Procedure Growth Status 08/05/17 14:25 Fluid Pleural Fluid Gram Stain - Final Resulted 08/05/17 14:25 Fluid Pleural Fluid Body Fluid Culture - Preliminary NO GROWTH IN 24 HOURS. Resulted Imaging Last Impressions Chest X-Ray 05/11/17 0000 Signed Impressions: Service Date/Time: Thursday, May 11, 2017 09:37 - CONCLUSION: 1. Small right pleural effusion. 2. Bilateral mid and lower lung zone predominant air space opacity could represent pulmonary edema given the appearance and distribution. Obdulio Sam MD Abdomen X-Ray 05/10/17 0000 Signed Impressions: Service Date/Time: Wednesday, May 10, 2017 22:08 - CONCLUSION: Tip of Dobbhoff catheter is in the antrum of the stomach. Sage Adler MD Gall Bladder Ultrasound 05/08/17 0000 Signed Impressions: Service Date/Time: May 08:23 - CONCLUSION: Focally unremarkable appearance of the gallbladder Obdulio Chun MD Abdomen/Pelvis CT 05/07/17 0000 Signed Impressions: Service Date/Time: Sunday, May 07, 2017 13:23 - CONCLUSION: 1. Large left pneumothorax. 2. Bilateral lower lobe consolidation and bilateral moderate size pleural effusions. 3. Significant soft tissue thickening of the right lateral chest wall and left gluteus muscle. 4. Mild ascites. The findings were called to Dr. Carney. Deangelo Zamora MD Head CT 05/06/17 0000 Signed Impressions: Service Date/Time: Saturday, May 06, 2017 04:18 - CONCLUSION: 1. Evolving large left-sided MCA territory infarct with minimally improved aizx-rp-odyse subfalcine shift. 2. No intercurrent hemorrhage or other acute abnormality. Alejo De La Vega MD Hip and Pelvis X-Ray 05/05/17 0000 Signed Impressions: Service Date/Time: Friday, May 05, 2017 10:59 - CONCLUSION: Left proximal femur trochanteric/subtrochanteric fracture lucency visualized. Postoperative changes. Choco Mustafa MD Chest CT 04/30/17 0000 Signed Impressions: Service Date/Time: Sunday, April 30, 2017 09:20 - CONCLUSION: 1. Bilateral pulmonary infiltrates more pronounced within the lower lobes with tiny bilateral pleural effusions. Material seen filling the lower lobe bronchi bilaterally either related to purulent material or perhaps mucus plugging. Deangelo Wren Jr., MD Carotid Artery Ultrasound 04/24/17 0000 Signed Impressions: Service Date/Time: April 09:45 - CONCLUSION: 1. No hemodynamically significant carotid artery stenosis. Arnie Middleton MD Hip X-Ray 04/21/17 0000 Signed Impressions: Service Date/Time: Friday, April 21, 2017 11:36 - CONCLUSION: Fluoroscopic images during placement of intramedullary siomara left femur. Benja Ramsey MD Physical Exam GENERAL: Well-developed patient, in no apparent distress. SKIN: No rashes, ecchymoses or lesions. Cool and dry. EYES: Pupils equal round and reactive. Extraocular motions intact. No scleral icterus. No injection or drainage. ENT: NAD NECK: Trachea midline. Supple, nontender, no meningeal signs. CARDIOVASCULAR: Regular rate and rhythm without murmurs, gallops, or rubs. RESPIRATORY: Clear to auscultation. Breath sounds equal bilaterally. GASTROINTESTINAL: Abdomen soft, distended. No tenderness. MUSCULOSKELETAL: Pedal edema. Generalized anasarca. NEUROLOGICAL:. Opens eyes, not tracking, Does not track or follow commands Psych: could not be assessed. IV line sites with no e.o infection. Assessment & Plan Remarks Sepsis MDR PSAE pneumonia Left MCA infarction Recs: DC Zerbaxa IV (ASP: MDR PSAE pneumonia) Start Colistin 5 more days then stop. d/w and RN: not much secretions. Treated for 10 day course. Follow clinically. Will sign off please call back if any change in clinical condition or questions. Jane Saleh MD Aug 06, 2017 12:59
--- NOTE | 2017-08-06 13:52 | HHI.FPPN ---
Subjective Remarks No acute events overnight. Afebrile, vitals stable. Patient seen and examined this morning. NAD. Not responding to verbal or painful stimuli. Objective Vitals Vital Signs Date Time Temp Pulse Resp B/P (MAP) Pulse Ox O2 Delivery O2 Flow Rate FiO2 08/06/17 12:00 97.6 79 17 132/63 (86) 94 08/06/17 08:30 100 T-piece 5.00 35 08/06/17 08:30 100 T-piece 5.00 35 08/06/17 08:25 97 Trach Collar 7.00 35 Humidified 08/06/17 08:00 96.7 88 15 165/86 (112) 97 08/06/17 04:00 96.8 90 20 147/84 (105) 94 08/06/17 00:00 96.3 89 20 158/61 (93) 94 08/05/17 20:00 94 Trach Collar 7.00 35 08/05/17 20:00 96.2 93 20 160/74 (102) 92 08/05/17 17:57 95 T-piece 6.00 40 08/05/17 17:57 95 T-piece 6.00 40 08/05/17 17:22 96.2 95 15 183/86 (118) 85 I/O 08/05/17 08/05/17 08/05/17 08/06/17 08/06/17 08/06/17 07:00 15:00 23:00 07:00 15:00 23:00 Intake Total 100 ml 595 ml 100 ml Output Total 1050 ml 625 ml 500 ml Balance -1050 ml -525 ml 95 ml 100 ml Intake Oral 0 ml 0 ml IV Total 100 ml 100 ml Tube Feeding 495 ml Tube Irrigant 100 ml Output Urine Total 1050 ml 625 ml 500 ml # Bowel Movements 3 3 3 Result Diagram: 08/04/17 1644 08/05/17 0628 Objective Remarks GEN: Appears comfortable. NAD. Trach and PEG. HEAD: Normocephalic. Atraumatic. Right side facial droop. LUNGS: Decreased sounds in b/l bases however improved aeration from previous examination, breathing spontaneously via T-tube. CARDIOVASCULAR: NRRR, normal S1/S2, no murmur GI/ABD: Soft, non-distended. No grimacing with palpation. Feeding tube insertion point with no redness, no distention NEURO: Not able to track. Flaccid paralysis on the right side. MUSC: SCDs on bilateral lower extremities. Pedal pulses present. SKIN: Sacral pressure ulcer extends from anus to coccyx. Stage II. EXTREMITIES: 1+ pitting edema up to distal tibia of right lower extremity. No edema of LLE. Other: urinary catheter in place. Procedures ORIF 04/21/17 Intubation 04/30/17 Chest tube placement 05/07/17, removed 05/12/17 Trach placement 05/15/17 PEG tube placement 05/16/17 A/P Assessment and Plan 76 y/o female with HTN, DM admitted for DKA and hip fracture s/p large CVA after ORIF she is currently stable with her current treatment but has had no meaningful functional recovery and do not anticipate any further neurologic recovery from here on. Dr. Harper, Dr. Tran and case management had a long discussion with the daughter on 07/23 and the patient's daughter is still hopeful for full recovery for her mom in spite of her mom's state of health since her CVA. DW the daughter that it is our belief based on her clinical picture that she will not make any sort of meaningful recovery and will remain on the trach and PEG for the rest of her life. DW the daughter due to her status that the patient will likely continue to decline and continue to acquire infections associated with this type of clinical picture including UTI, PNA, and sepsis. DW the daughter to consider the QOL that her mother would have wanted. We recommend that this patient receive Hospice services as we would not anticipate her living longer than 6 months. The daughter does not want to consider this at this time and she is the sole decision maker for this patient. In that case, we will continue to treat the patient aggressively as issues arise and honor the families wishes. A one-hour long family meeting was held (07/26) with patient's daughter Trice, Dr. Harper, Dr. Watts and patient's nurse to discuss patient's poor prognosis. We felt it was important to listen to daughter's perspective and address any questions or concerns she has about her mother's care. Patient goals of care were also discussed. Daughter still wants aggressive treatment. Daughter was informed that from our medical standpoint we do not anticipated any meaningful recovery from her mother's current baseline. Neither do we anticipate for mother to be able to get off PEG tube feeds and trach. However, we will continue to honor daughter's wishes and provide aggressive medical care. ID and pulmonology are actively following. Patient is currently being treated for MDR pseudomonas pna and pulmonology recommended bronchoscopy. Risk and benefits of the procedure were explained and discussed with daughter. The option for her mother not to have the bronchoscopy and to instead continue treatment with antibiotics was also discussed. She is currently unsure about the procedure. She was advised to take time to think about her decision keeping in mind what her mother's wishes would be. Problem List: (1) Chronic respiratory failure ICD Codes: J96.10 - Chronic respiratory failure, unspecified whether with hypoxia or hypercapnia Plan: At this point, respiratory failure is chronic on T-tube Hospital Acquired PNA on 07/21 CXR 08/01 demonstrating bilateral airspace disease and effusions, R>L sputum culture positive for Multi drug resistant pseudomonas Blood cultures from 07/21 no growth (final) Repeat blood cultures from 07/25 no growth final Legionella and S pneumonia urine antigen negative -ID following (Dr. Saleh), recommendations appreciated - Continue ceftolozane/ tazobactam - Continue to follow cultures -Pulmonology following (Dr. Rizo), recommended bronchoscopy procedure, daughter refused at this time -CXR 07/29 revealed diffuse bilateral airspace disease with interval worsening on the right, lasix 40mg IV given once for fluid overload -Repeat CXR revealed worsening b/l airspace disease and effusion, slightly worse on the left since 07/29. Right effusion and airspace diases remains larger than the left side. -US chest wall, moderate right pleural effusion. -Consult IR for US guided thoracentesis, performed on 08/05 removing 1450 cc of clear yellow fluid Infection History Pseudomonas hospital-acquired pneumonia - active MSSA bacteremia - resolved Serratia/staph aureus pneumonia - resolved C glabrata UTI - resolved Citrobacter UTI - resolved Serratia/MSSA sputum VAP - resolved Antibiotic History Cefazolin: 04/21-04/22, 05/15-05/16 Cefepime: 04/30-05/04, 05/27-06/03 Ceftrioxone 05/26-05/27 Erythromycin 06/16-06/18, 06/19 Gentamicin 04/21 vancomycin 04/30-05/04, 06/21-06/23 Zosyn 07/21 - 07/25 Azithromycin 07/21 - 07/25 Fluconazole 04/29 - ; 07/26 ceftolozane/ tazobactam 07/25 - 08/06 Colistin nebs q8h 08/06 (2) Pleural effusion ICD Codes: J90 - Pleural effusion, not elsewhere classified Status: Acute Plan: US chest 08/01 demonstrating moderate right pleural effusion IR consulted for thoracentesis performed 08/05 Further plan as above (3) Acute CVA (cerebrovascular accident) ICD Codes: I63.9 - Cerebral infarction, unspecified Status: Chronic Plan: Neurologically stable, no improvement. Overall prognosis is poor. Persistent oxygen requirement See above note about meeting with Daughter on 07/23 and 07/26. Daughter still desires full code and aggressive care -Titrate oxygen via trach to maintain O2 saturation above 92% -Continue tube fees at 45ml/hr 24 hours per day thru peg Tube -Neurosurgery, neurology and palliative care have all been consulted in the past and agree with very poor prognosis with no meaningful neurologic recovery. History and imaging: Patient found minimally responsive with neurological deficits around 0820 04/24. Stat CT of head was ordered, which showed large left MCA infarct. Diffuse edema throughout the left MCA distribution, suggested completed infarct. This was discussed and was not a candidate for intracranial intervention. CT (04/30): Reduction in midline shift to 11mm. Unchanged large left MCA infarction. CT head (05/06) shows: Evolving large left-sided MCA territory infarct with minimally improved [id number] subfalcine shift. No intercurrent hemorrhage or other acute abnormality. Echocardiogram- The left ventricular systolic function is low normal with an estimated ejection fraction in the range of 50-55%. Mild concentric left ventricular hypertrophy. Normal left ventricular size. [id number] mitral valve regurgitation. Carotid Artery US- No hemodynamically significant carotid stenosis (4) UTI (urinary tract infection) ICD Codes: N39.0 - Urinary tract infection, site not specified Status: Resolved Plan: UCx on 07/15 positive for E coli Repeat UCx on 07/20 positive for C. Freundii UCx 07/24 grew only yeast - See above for antibiotic history and coverage (5) Sacral decubitus ulcer ICD Codes: L89.159 - Pressure ulcer of sacral region, unspecified stage Status: Chronic Plan: Patient with Stage II pressure injury over the coccyx -Wound care consult appreciated: 1. Please cleanse coccyx wound every 3 days and PRN for soiling. 2. Apply Calcium Alginate to open wound bed. 3. Secure with bordered gauze every 3 days and PRN for soiling. 4. Continue to turn patient every 2 hours or PRN for comfort. 5. Use one ultrasorb for moisture. Please use flat sheet for repositioning. (6) Anemia ICD Codes: D64.9 - Anemia, unspecified Status: Chronic Plan: s/p 1u of PRBC on 05/28/17. Hgb stable Hemoccult negative on 05/29 - monitor H&H periodically Stable 07/31 (7) Urinary retention ICD Codes: R33.9 - Retention of urine, unspecified Status: Chronic Plan: - Leavitt cath done because patient was retaining urine with intermittent cath's - Cath last changed 07/15, pt afebrile - Urine output WNL (8) Type 2 diabetes mellitus ICD Codes: E11.9 - Type 2 diabetes mellitus without complications Status: Chronic Plan: - BSBG ranging 120-222 past 24 hours, requiring 5 units total supplemental insulin -continue to monitor BSG -Decreased Levemir to 15 units q 12 due to BG range below goal. -Will continue to monitor -BS goal 140-180 -Discontinued SSI on 07/16 -AccuCheks QShift -Glucerna for PEG tube feedings @ 45 ml/hr -Glucagon 1 mg per PRN protocol for hypoglycemia BS <70mg/dL History Admitted for DKA which has now resolved. Hemoglobin A1C is 12.9. Diabetes Type II is uncontrolled. (9) Hip fracture ICD Codes: S72.009A - Fracture of unspecified part of neck of unspecified femur , initial encounter for closed fracture Status: Resolved Plan: S/P left hip reduction and intramedullary nail fixation on 04-21-17 -c/w Calcium/Vitamin D (10) Hypertension ICD Codes: I10 - Essential (primary) hypertension Status: Chronic Plan: -Antihypertensives to keep SBP<160, as per critical care recs -c/w clonidine 0.1mg Q6h PRN SBP >160 -c/w lisinopril 20mg Q12h po Echocardiogram 04/24 - EF 50 to 55%. Mild concentric LVH. (11) Fluids, Electrolytes, and Nutrition Status: Acute Plan: Fluids: through PEG tube Electrolyte: Continue to monitor periodically, replete as needed Nutrition: continuous Glucerna tube feeds and free water, pump at 45mls/hr, tolerating feeds well, no residual. Protein 1 pack TID. Supplements: calcium TID and vit D3 QD DVT ppx: SCDs/heparin CVA ppx: aspirin 325 mg QD GI ppx: Lansoprazole 30mg qd via NG Problem Qualifiers (1) Chronic respiratory failure: Qualified Codes: J96.11 - Chronic respiratory failure with hypoxia (2) UTI (urinary tract infection): Qualified Codes: N39.0 - Urinary tract infection, site not specified (3) Sacral decubitus ulcer: Qualified Codes: L89.154 - Pressure ulcer of sacral region, stage 4 (4) Type 2 diabetes mellitus: Qualified Codes: E11.9 - Type 2 diabetes mellitus without complications (5) Hip fracture: (6) Hypertension: Qualified Codes: I10 - Essential (primary) hypertension Jared Ennis MD R2 Aug 06, 2017 13:52
[2017-08-06] MEDS: RESP: COLISTIN 150 MG VIAL NEB SCH (16:14)
--- NOTE | 2017-08-06 19:08 | HHI.PR ---
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 Looks around Small amount of trach secretions Had Rt TC, 1450 cc fluid removed CXR improvement in lung infilt, no ptx Objective Vital Signs Vital Signs Date Time Temp Pulse Resp B/P (MAP) Pulse Ox O2 Delivery O2 Flow Rate FiO2 08/06/17 16:00 96.4 80 15 132/80 (97) 98 08/06/17 12:00 97.6 79 17 132/63 (86) 94 08/06/17 08:30 100 T-piece 5.00 35 08/06/17 08:30 100 T-piece 5.00 35 08/06/17 08:25 97 Trach Collar 7.00 35 Humidified 08/06/17 08:00 96.7 88 15 165/86 (112) 97 08/06/17 04:00 96.8 90 20 147/84 (105) 94 08/06/17 00:00 96.3 89 20 158/61 (93) 94 08/05/17 20:00 94 Trach Collar 7.00 35 08/05/17 20:00 96.2 93 20 160/74 (102) 92 I/O 08/05/17 08/05/17 08/05/17 08/06/17 08/06/17 08/06/17 07:00 15:00 23:00 07:00 15:00 23:00 Intake Total 100 ml 595 ml 220 ml 723 ml Output Total 1050 ml 625 ml 500 ml 425 ml Balance -1050 ml -525 ml 95 ml 220 ml 298 ml Intake Oral 0 ml 0 ml 0 ml IV Total 100 ml 100 ml Tube Feeding 495 ml 603 ml Tube Irrigant 100 ml Other 120 ml 120 ml Output Urine Total 1050 ml 625 ml 500 ml 425 ml # Bowel Movements 3 3 3 3 Result Diagram: 08/04/17 1644 08/05/17 0628 Objective Remarks GENERAL: Elderly female,NAD SKIN: Warm and dry. HEAD: Normocephalic. EYES: No scleral icterus. No injection or drainage. NECK: Supple, trachea midline. No JVD or lymphadenopathy. CARDIOVASCULAR: Regular rate and rhythm without murmurs, gallops, or rubs. RESPIRATORY: Breath sounds equal bilaterally. No accessory muscle use. GASTROINTESTINAL: Abdomen soft, non-tender, nondistended. MUSCULOSKELETAL: No cyanosis, or edema. BACK: Nontender without obvious deformity. No CVA tenderness. A/P Assessment and Plan RF,S/P Trach CVA Pneumonia Pleural effusion PLAN: Cont Abx Aerosol nebs Supplement 02 Trach care TF Palliative care evaluating pt. DW Chris Jimenez MD Aug 06, 2017 19:08
[2017-08-07] VITALS (8 sets, daily range): BP systolic 121–155; BP diastolic 58–75; PULSE 72–90; RESP 18–20; TEMP 96–97.7; O2SAT 94–100
[2017-08-07] MEDS: RESP: COLISTIN 150 MG VIAL NEB SCH ×3 (00:34→16:14)
[2017-08-07] MEDS: HEPARIN SODIUM - SQ 10,000 UNITS/ML VIAL SQ SCH ×3 (05:55→20:18)
[2017-08-07] MEDS: INSULIN ASPART SUPPLEMENTAL SCALE SQ SCH ×4 (06:00→16:43)
[2017-08-07] MEDS: ARTIFICIAL TEARS OPTH SOLN 15 ML BTL EACH EYE SCH ×3 (06:11→20:19)
[2017-08-07] MEDS: CALCIUM/VITAMIN D 250 MG/125 U TAB PO SCH ×3 (08:20→16:43)
[2017-08-07] MEDS: ASPIRIN 325 MG TAB DOBHOFF SCH (08:20)
[2017-08-07] MEDS: LISINOPRIL 10 MG TAB PO SCH ×2 (08:20→20:18)
[2017-08-07] MEDS: CHOLECALCIFEROL (VIT D3) 5000 UNIT CAP PO SCH (08:21)
[2017-08-07] MEDS: LANSOPRAZOLE SOLUTAB 30 MG TAB NG SCH (08:21)
[2017-08-07] MEDS: INSULIN DETEMIR 100 UNITS/ML VIAL SQ SCH ×2 (08:22→20:41)
[2017-08-07] MEDS: BENEPROTEIN POWDER 1 PACK G-TUBE SCH ×3 (08:22→16:43)
[2017-08-07] MEDS: SODIUM CHLORIDE 0.9% FLUSH 5 ML FLUSH IV FLUSH SCH ×2 (08:22→20:19)
[2017-08-07] MEDS: POLYETHYLENE GLYCOL 17 GM PKG PEG SCH (08:22)
--- NOTE | 2017-08-07 11:29 | HHI.FPPN ---
Subjective Remarks No acute events overnight. Nonresponsive to verbal or painful stimuli, Trach collar Afebrile, p 86, R 20, BP 154/72, Objective Vitals Vital Signs Date Time Temp Pulse Resp B/P (MAP) Pulse Ox O2 Delivery O2 Flow Rate FiO2 08/07/17 08:00 98 T-piece 35 08/07/17 08:00 97 Trach Collar 7.00 35 08/07/17 07:59 98 T-piece 35 08/07/17 00:50 100 T-piece 6.00 35 08/07/17 00:50 100 T-piece 6.00 35 08/07/17 00:00 96.0 90 20 155/75 (101) 94 08/06/17 20:36 98 T-Piece 6.00 35 Humidified 08/06/17 20:00 95.9 83 20 139/72 (94) 98 08/06/17 16:00 96.4 80 15 132/80 (97) 98 08/06/17 12:00 97.6 79 17 132/63 (86) 94 I/O 08/06/17 08/06/17 08/06/17 08/07/17 08/07/17 08/07/17 07:00 15:00 23:00 07:00 15:00 23:00 Intake Total 595 ml 220 ml 841 ml 383 ml Output Total 500 ml 425 ml 700 ml Balance 95 ml 220 ml 416 ml -317 ml Intake Oral 0 ml 0 ml 0 ml IV Total 100 ml Tube Feeding 495 ml 721 ml 383 ml Tube Irrigant 100 ml Other 120 ml 120 ml Output Urine Total 500 ml 425 ml 700 ml # Bowel Movements 3 3 2 Result Diagram: 08/04/17 1644 08/05/17 0628 Objective Remarks GEN: Appears comfortable. NAD. Trach and PEG. HEAD: Normocephalic. Atraumatic. Right side facial droop. LUNGS: Decreased sounds in b/l bases however improved aeration from previous examination, breathing spontaneously via T-tube. CARDIOVASCULAR: NRRR, normal S1/S2, no murmur GI/ABD: Soft, non-distended. No grimacing with palpation. Feeding tube insertion point with no redness, no distention NEURO: Not able to track. Flaccid paralysis on the right side. MUSC: SCDs on bilateral lower extremities. Pedal pulses present. SKIN: Sacral pressure ulcer extends from anus to coccyx. Stage II. EXTREMITIES: 1+ pitting edema up to distal tibia of right lower extremity. No edema of LLE. Other: urinary catheter in place. Procedures ORIF 04/21/17 Intubation 04/30/17 Chest tube placement 05/07/17, removed 05/12/17 Trach placement 05/15/17 PEG tube placement 05/16/17 A/P Assessment and Plan 76 y/o female with HTN, DM admitted for DKA and hip fracture s/p large CVA after ORIF she is currently stable with her current treatment but has had no meaningful functional recovery and do not anticipate any further neurologic recovery from here on. Dr. Harper, Dr. Tran and case management had a long discussion with the daughter on 07/23 and the patient's daughter is still hopeful for full recovery for her mom in spite of her mom's state of health since her CVA. DW the daughter that it is our belief based on her clinical picture that she will not make any sort of meaningful recovery and will remain on the trach and PEG for the rest of her life. DW the daughter due to her status that the patient will likely continue to decline and continue to acquire infections associated with this type of clinical picture including UTI, PNA, and sepsis. DW the daughter to consider the QOL that her mother would have wanted. We recommend that this patient receive Hospice services as we would not anticipate her living longer than 6 months. The daughter does not want to consider this at this time and she is the sole decision maker for this patient. In that case, we will continue to treat the patient aggressively as issues arise and honor the families wishes. A one-hour long family meeting was held (07/26) with patient's daughter Trice, Dr. Harper, Dr. Watts and patient's nurse to discuss patient's poor prognosis. We felt it was important to listen to daughter's perspective and address any questions or concerns she has about her mother's care. Patient goals of care were also discussed. Daughter still wants aggressive treatment. Daughter was informed that from our medical standpoint we do not anticipated any meaningful recovery from her mother's current baseline. Neither do we anticipate for mother to be able to get off PEG tube feeds and trach. However, we will continue to honor daughter's wishes and provide aggressive medical care. ID and pulmonology are actively following. Patient is currently being treated for MDR pseudomonas pna and pulmonology recommended bronchoscopy. Risk and benefits of the procedure were explained and discussed with daughter. The option for her mother not to have the bronchoscopy and to instead continue treatment with antibiotics was also discussed. She is currently unsure about the procedure. She was advised to take time to think about her decision keeping in mind what her mother's wishes would be. Problem List: (1) Chronic respiratory failure ICD Codes: J96.10 - Chronic respiratory failure, unspecified whether with hypoxia or hypercapnia Plan: At this point, respiratory failure is chronic on T-tube Hospital Acquired PNA on 07/21 CXR 08/01 demonstrating bilateral airspace disease and effusions, R>L sputum culture positive for Multi drug resistant pseudomonas Blood cultures from 07/21 no growth (final) Repeat blood cultures from 07/25 no growth final Legionella and S pneumonia urine antigen negative -ID following (Dr. Saleh), recommendations appreciated - Discontinued ceftolozane/ tazobactam -Continue Colistin Neb 75 joseph q8hr (08/06- ) for 5 days and then stop - Continue to follow cultures -Pulmonology following (Dr. Rizo), recommended bronchoscopy procedure, daughter refused at this time -CXR 07/29 revealed diffuse bilateral airspace disease with interval worsening on the right, lasix 40mg IV given once for fluid overload -Repeat CXR revealed worsening b/l airspace disease and effusion, slightly worse on the left since 07/29. Right effusion and airspace diases remains larger than the left side. -US chest wall, moderate right pleural effusion. -Consult IR for US guided thoracentesis, performed on 08/05 removing 1450 cc of clear yellow fluid Infection History Pseudomonas hospital-acquired pneumonia - active MSSA bacteremia - resolved Serratia/staph aureus pneumonia - resolved C glabrata UTI - resolved Citrobacter UTI - resolved Serratia/MSSA sputum VAP - resolved Antibiotic History Cefazolin: 04/21-04/22, 05/15-05/16 Cefepime: 04/30-05/04, 05/27-06/03 Ceftrioxone 05/26-05/27 Erythromycin 06/16-06/18, 06/19 Gentamicin 04/21 vancomycin 04/30-05/04, 06/21-06/23 Zosyn 07/21 - 07/25 Azithromycin 07/21 - 07/25 Fluconazole 04/29 - ; 07/26 ceftolozane/ tazobactam 07/25 - 08/06 Colistin nebs q8h 08/06 (2) Pleural effusion ICD Codes: J90 - Pleural effusion, not elsewhere classified Status: Acute Plan: US chest 08/01 demonstrating moderate right pleural effusion IR consulted for thoracentesis performed 08/05 Further plan as above (3) Acute CVA (cerebrovascular accident) ICD Codes: I63.9 - Cerebral infarction, unspecified Status: Chronic Plan: Neurologically stable, no improvement. Overall prognosis is poor. Persistent oxygen requirement See above note about meeting with Daughter on 07/23 and 07/26. Daughter still desires full code and aggressive care -Titrate oxygen via trach to maintain O2 saturation above 92% -Continue tube fees at 45ml/hr 24 hours per day thru peg Tube -Neurosurgery, neurology and palliative care have all been consulted in the past and agree with very poor prognosis with no meaningful neurologic recovery. History and imaging: Patient found minimally responsive with neurological deficits around 0820 04/24. Stat CT of head was ordered, which showed large left MCA infarct. Diffuse edema throughout the left MCA distribution, suggested completed infarct. This was discussed and was not a candidate for intracranial intervention. CT (04/30): Reduction in midline shift to 11mm. Unchanged large left MCA infarction. CT head (05/06) shows: Evolving large left-sided MCA territory infarct with minimally improved [id number] subfalcine shift. No intercurrent hemorrhage or other acute abnormality. Echocardiogram- The left ventricular systolic function is low normal with an estimated ejection fraction in the range of 50-55%. Mild concentric left ventricular hypertrophy. Normal left ventricular size. [id number] mitral valve regurgitation. Carotid Artery US- No hemodynamically significant carotid stenosis (4) UTI (urinary tract infection) ICD Codes: N39.0 - Urinary tract infection, site not specified Status: Resolved Plan: UCx on 07/15 positive for E coli Repeat UCx on 07/20 positive for C. Freundii UCx 07/24 grew only yeast - See above for antibiotic history and coverage (5) Sacral decubitus ulcer ICD Codes: L89.159 - Pressure ulcer of sacral region, unspecified stage Status: Chronic Plan: Patient with Stage II pressure injury over the coccyx -Wound care consult appreciated: 1. Please cleanse coccyx wound every 3 days and PRN for soiling. 2. Apply Calcium Alginate to open wound bed. 3. Secure with bordered gauze every 3 days and PRN for soiling. 4. Continue to turn patient every 2 hours or PRN for comfort. 5. Use one ultrasorb for moisture. Please use flat sheet for repositioning. (6) Anemia ICD Codes: D64.9 - Anemia, unspecified Status: Chronic Plan: s/p 1u of PRBC on 05/28/17. Hgb stable Hemoccult negative on 05/29 - monitor H&H periodically Stable 07/31 (7) Urinary retention ICD Codes: R33.9 - Retention of urine, unspecified Status: Chronic Plan: - Leavitt cath done because patient was retaining urine with intermittent cath's - Cath last changed 07/15, pt afebrile - Urine output WNL (8) Type 2 diabetes mellitus ICD Codes: E11.9 - Type 2 diabetes mellitus without complications Status: Chronic Plan: - BSBG ranging 120-222 past 24 hours, requiring 5 units total supplemental insulin -continue to monitor BSG -Decreased Levemir to 15 units q 12 due to BG range below goal. -Will continue to monitor -BS goal 140-180 -Discontinued SSI on 07/16 -AccuCheks QShift -Glucerna for PEG tube feedings @ 45 ml/hr -Glucagon 1 mg per PRN protocol for hypoglycemia BS <70mg/dL History Admitted for DKA which has now resolved. Hemoglobin A1C is 12.9. Diabetes Type II is uncontrolled. (9) Hip fracture ICD Codes: S72.009A - Fracture of unspecified part of neck of unspecified femur , initial encounter for closed fracture Status: Resolved Plan: S/P left hip reduction and intramedullary nail fixation on 04-21-17 -c/w Calcium/Vitamin D (10) Hypertension ICD Codes: I10 - Essential (primary) hypertension Status: Chronic Plan: -Antihypertensives to keep SBP<160, as per critical care recs -c/w clonidine 0.1mg Q6h PRN SBP >160 -c/w lisinopril 20mg Q12h po Echocardiogram 04/24 - EF 50 to 55%. Mild concentric LVH. (11) Fluids, Electrolytes, and Nutrition Status: Acute Plan: Fluids: through PEG tube Electrolyte: Continue to monitor periodically, replete as needed Nutrition: continuous Glucerna tube feeds and free water, pump at 45mls/hr, tolerating feeds well, no residual. Protein 1 pack TID. Supplements: calcium TID and vit D3 QD DVT ppx: SCDs/heparin CVA ppx: aspirin 325 mg QD GI ppx: Lansoprazole 30mg qd via NG Problem Qualifiers (1) Chronic respiratory failure: Qualified Codes: J96.11 - Chronic respiratory failure with hypoxia (2) UTI (urinary tract infection): Qualified Codes: N39.0 - Urinary tract infection, site not specified (3) Sacral decubitus ulcer: Qualified Codes: L89.154 - Pressure ulcer of sacral region, stage 4 (4) Type 2 diabetes mellitus: Qualified Codes: E11.9 - Type 2 diabetes mellitus without complications (5) Hip fracture: (6) Hypertension: Qualified Codes: I10 - Essential (primary) hypertension Apple Winslow MD R1 Aug 07, 2017 11:29
--- NOTE | 2017-08-07 17:53 | HHI.PR ---
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 Sleeping Small amount of trach secretions Objective Vital Signs Vital Signs Date Time Temp Pulse Resp B/P (MAP) Pulse Ox O2 Delivery O2 Flow Rate FiO2 08/07/17 16:00 97.3 72 18 136/66 (89) 100 08/07/17 12:00 96.6 85 18 140/72 (94) 94 08/07/17 08:00 98 T-piece 35 08/07/17 08:00 97.0 86 20 154/72 (99) 97 08/07/17 08:00 97 Trach Collar 7.00 35 08/07/17 07:59 98 T-piece 35 08/07/17 00:50 100 T-piece 6.00 35 08/07/17 00:50 100 T-piece 6.00 35 08/07/17 00:00 96.0 90 20 155/75 (101) 94 08/06/17 20:36 98 T-Piece 6.00 35 Humidified 08/06/17 20:00 95.9 83 20 139/72 (94) 98 I/O 08/06/17 08/06/17 08/06/17 08/07/17 08/07/17 08/07/17 07:00 15:00 23:00 07:00 15:00 23:00 Intake Total 595 ml 220 ml 841 ml 383 ml 270 ml 568 ml Output Total 500 ml 425 ml 700 ml 500 ml Balance 95 ml 220 ml 416 ml -317 ml 270 ml 68 ml Intake Oral 0 ml 0 ml 0 ml IV Total 100 ml Tube Feeding 495 ml 721 ml 383 ml 270 ml 448 ml Tube Irrigant 100 ml Other 120 ml 120 ml 120 ml Output Urine Total 500 ml 425 ml 700 ml 500 ml # Bowel Movements 3 3 2 2 Result Diagram: 08/04/17 1644 08/05/17 0628 Objective Remarks GENERAL: Elderly female,NAD SKIN: Warm and dry. HEAD: Normocephalic. EYES: No scleral icterus. No injection or drainage. NECK: Supple, trachea midline. No JVD or lymphadenopathy. CARDIOVASCULAR: Regular rate and rhythm without murmurs, gallops, or rubs. RESPIRATORY: Breath sounds equal bilaterally. No accessory muscle use. GASTROINTESTINAL: Abdomen soft, non-tender, nondistended. MUSCULOSKELETAL: No cyanosis, or edema. BACK: Nontender without obvious deformity. No CVA tenderness. A/P Assessment and Plan RF,S/P Trach CVA Pneumonia Pleural effusion PLAN: Cont Abx Aerosol nebs Supplement 02 Trach care TF Chris Rizo MD Aug 07, 2017 17:53
[2017-08-08] VITALS (7 sets, daily range): BP systolic 115–157; BP diastolic 67–79; PULSE 86–93; RESP 17–20; TEMP 95.3–97.8; O2SAT 93–100
[2017-08-08] MEDS: RESP: COLISTIN 150 MG VIAL NEB SCH ×3 (00:59→16:00)
[2017-08-08] MEDS: ARTIFICIAL TEARS OPTH SOLN 15 ML BTL EACH EYE SCH ×3 (04:45→21:59)
[2017-08-08] MEDS: HEPARIN SODIUM - SQ 10,000 UNITS/ML VIAL SQ SCH ×3 (04:45→21:58)
[2017-08-08] MEDS: INSULIN ASPART SUPPLEMENTAL SCALE SQ SCH ×5 (04:55→21:59)
--- NOTE | 2017-08-08 08:45 | HHI.FPPN ---
Subjective Remarks No acute events overnight. Afebrile, vitals stable. Patient seen and examined this morning. Remains unresponsive to verbal or painful stimuli. NAD. 1600 cc UOP past 24 hours. Objective Vitals Vital Signs Date Time Temp Pulse Resp B/P (MAP) Pulse Ox O2 Delivery O2 Flow Rate FiO2 08/08/17 00:00 97.8 92 20 152/76 (101) 96 08/07/17 20:37 95 T-piece 28 08/07/17 20:37 95 T-piece 28 08/07/17 20:09 95 T-Piece 6.00 35 08/07/17 20:00 97.7 80 19 121/58 (79) 99 08/07/17 16:00 97.3 72 18 136/66 (89) 100 08/07/17 12:00 96.6 85 18 140/72 (94) 94 I/O 08/07/17 08/07/17 08/07/17 08/08/17 08/08/17 08/08/17 07:00 15:00 23:00 07:00 15:00 23:00 Intake Total 383 ml 270 ml 753 ml 384 ml Output Total 700 ml 600 ml 1000 ml Balance -317 ml 270 ml 153 ml -616 ml Intake Oral 0 ml 0 ml Tube Feeding 383 ml 270 ml 633 ml 384 ml Other 120 ml Output Urine Total 700 ml 600 ml 1000 ml # Bowel Movements 2 2 3 Result Diagram: 08/04/17 1644 08/05/17 0628 Objective Remarks GEN: Appears comfortable. NAD. Trach and PEG. HEAD: Normocephalic. Atraumatic. Right side facial droop. LUNGS: Decreased sounds in b/l bases, breathing spontaneously via T-tube. CARDIOVASCULAR: NRRR, normal S1/S2, no murmur GI/ABD: Soft, non-distended. No grimacing with palpation. Feeding tube insertion point with no redness, no distention NEURO: Not able to track. Flaccid paralysis on the right side. MUSC: SCDs on bilateral lower extremities. Pedal pulses present. SKIN: Sacral pressure ulcer extends from anus to coccyx. Stage II. EXTREMITIES: 1+ pitting edema up to distal tibia of right lower extremity. Trace lower extremity edema of left foot. Other: urinary catheter in place. Procedures ORIF 04/21/17 Intubation 04/30/17 Chest tube placement 05/07/17, removed 05/12/17 Trach placement 05/15/17 PEG tube placement 05/16/17 A/P Assessment and Plan 76 y/o female with HTN, DM admitted for DKA and hip fracture s/p large CVA after ORIF she is currently stable with her current treatment but has had no meaningful functional recovery and do not anticipate any further neurologic recovery from here on. Dr. Harper, Dr. Tran and case management had a long discussion with the daughter on 07/23 and the patient's daughter is still hopeful for full recovery for her mom in spite of her mom's state of health since her CVA. DW the daughter that it is our belief based on her clinical picture that she will not make any sort of meaningful recovery and will remain on the trach and PEG for the rest of her life. DW the daughter due to her status that the patient will likely continue to decline and continue to acquire infections associated with this type of clinical picture including UTI, PNA, and sepsis. DW the daughter to consider the QOL that her mother would have wanted. We recommend that this patient receive Hospice services as we would not anticipate her living longer than 6 months. The daughter does not want to consider this at this time and she is the sole decision maker for this patient. In that case, we will continue to treat the patient aggressively as issues arise and honor the families wishes. A one-hour long family meeting was held (07/26) with patient's daughter Trice, Dr. Harper, Dr. Watts and patient's nurse to discuss patient's poor prognosis. We felt it was important to listen to daughter's perspective and address any questions or concerns she has about her mother's care. Patient goals of care were also discussed. Daughter still wants aggressive treatment. Daughter was informed that from our medical standpoint we do not anticipated any meaningful recovery from her mother's current baseline. Neither do we anticipate for mother to be able to get off PEG tube feeds and trach. However, we will continue to honor daughter's wishes and provide aggressive medical care. ID and pulmonology are actively following. Patient is currently being treated for MDR pseudomonas pna and pulmonology recommended bronchoscopy. Risk and benefits of the procedure were explained and discussed with daughter. The option for her mother not to have the bronchoscopy and to instead continue treatment with antibiotics was also discussed. She is currently unsure about the procedure. She was advised to take time to think about her decision keeping in mind what her mother's wishes would be. Problem List: (1) Chronic respiratory failure ICD Codes: J96.10 - Chronic respiratory failure, unspecified whether with hypoxia or hypercapnia Plan: At this point, respiratory failure is chronic on T-tube Hospital Acquired PNA on 07/21 CXR 08/01 demonstrating bilateral airspace disease and effusions, R>L sputum culture positive for Multi drug resistant pseudomonas Blood cultures from 07/21 no growth (final) Repeat blood cultures from 07/25 no growth final Legionella and S pneumonia urine antigen negative -ID following (Dr. Saleh), recommendations appreciated - Discontinued ceftolozane/ tazobactam -Continue Colistin Neb 75 joseph q8hr (08/06-08/11) for 5 days and then stop - Continue to follow cultures -Pulmonology following (Dr. Rizo), recommended bronchoscopy procedure, daughter refused at this time -CXR 07/29 revealed diffuse bilateral airspace disease with interval worsening on the right, lasix 40mg IV given once for fluid overload -Repeat CXR revealed worsening b/l airspace disease and effusion, slightly worse on the left since 07/29. Right effusion and airspace diases remains larger than the left side. -US chest wall, moderate right pleural effusion. -Consult IR for US guided thoracentesis, performed on 08/05 removing 1450 cc of clear yellow fluid Infection History Pseudomonas hospital-acquired pneumonia - active MSSA bacteremia - resolved Serratia/staph aureus pneumonia - resolved C glabrata UTI - resolved Citrobacter UTI - resolved Serratia/MSSA sputum VAP - resolved Antibiotic History Cefazolin: 04/21-04/22, 05/15-05/16 Cefepime: 04/30-05/04, 05/27-06/03 Ceftrioxone 05/26-05/27 Erythromycin 06/16-06/18, 06/19 Gentamicin 04/21 vancomycin 04/30-05/04, 06/21-06/23 Zosyn 07/21 - 07/25 Azithromycin 07/21 - 07/25 Fluconazole 04/29 - ; 07/26 ceftolozane/ tazobactam 07/25 - 08/06 Colistin nebs q8h 12/6 (2) Pleural effusion ICD Codes: J90 - Pleural effusion, not elsewhere classified Status: Acute Plan: US chest 08/01 demonstrating moderate right pleural effusion IR consulted for thoracentesis performed 08/05 Further plan as above (3) Acute CVA (cerebrovascular accident) ICD Codes: I63.9 - Cerebral infarction, unspecified Status: Chronic Plan: Neurologically stable, no improvement. Overall prognosis is poor. Persistent oxygen requirement See above note about meeting with Daughter on 07/23 and 07/26. Daughter still desires full code and aggressive care -Titrate oxygen via trach to maintain O2 saturation above 92% -Continue tube fees at 45ml/hr 24 hours per day thru peg Tube -Neurosurgery, neurology and palliative care have all been consulted in the past and agree with very poor prognosis with no meaningful neurologic recovery. History and imaging: Patient found minimally responsive with neurological deficits around 0820 04/24. Stat CT of head was ordered, which showed large left MCA infarct. Diffuse edema throughout the left MCA distribution, suggested completed infarct. This was discussed and was not a candidate for intracranial intervention. CT (04/30): Reduction in midline shift to 11mm. Unchanged large left MCA infarction. CT head (05/06) shows: Evolving large left-sided MCA territory infarct with minimally improved [id number] subfalcine shift. No intercurrent hemorrhage or other acute abnormality. Echocardiogram- The left ventricular systolic function is low normal with an estimated ejection fraction in the range of 50-55%. Mild concentric left ventricular hypertrophy. Normal left ventricular size. [id number] mitral valve regurgitation. Carotid Artery US- No hemodynamically significant carotid stenosis (4) UTI (urinary tract infection) ICD Codes: N39.0 - Urinary tract infection, site not specified Status: Resolved Plan: UCx on 07/15 positive for E coli Repeat UCx on 07/20 positive for C. Freundii UCx 07/24 grew only yeast - See above for antibiotic history and coverage (5) Sacral decubitus ulcer ICD Codes: L89.159 - Pressure ulcer of sacral region, unspecified stage Status: Chronic Plan: Patient with Stage II pressure injury over the coccyx -Wound care consult appreciated: 1. Please cleanse coccyx wound every 3 days and PRN for soiling. 2. Apply Calcium Alginate to open wound bed. 3. Secure with bordered gauze every 3 days and PRN for soiling. 4. Continue to turn patient every 2 hours or PRN for comfort. 5. Use one ultrasorb for moisture. Please use flat sheet for repositioning. (6) Anemia ICD Codes: D64.9 - Anemia, unspecified Status: Chronic Plan: s/p 1u of PRBC on 05/28/17. Hgb stable Hemoccult negative on 05/29 - monitor H&H periodically Stable 07/31 (7) Urinary retention ICD Codes: R33.9 - Retention of urine, unspecified Status: Chronic Plan: - Cath last changed 07/15, pt afebrile - Urine output WNL (8) Type 2 diabetes mellitus ICD Codes: E11.9 - Type 2 diabetes mellitus without complications Status: Chronic Plan: - BSBG ranging 120-222 past 24 hours, requiring 5 units total supplemental insulin -continue to monitor BSG -Decreased Levemir to 15 units q 12 due to BG range below goal. -Will continue to monitor -BS goal 140-180 -Discontinued SSI on 07/16 -AccuCheks QShift -Glucerna for PEG tube feedings @ 45 ml/hr -Glucagon 1 mg per PRN protocol for hypoglycemia BS <70mg/dL History Admitted for DKA which has now resolved. Hemoglobin A1C is 12.9. Diabetes Type II is uncontrolled. (9) Hip fracture ICD Codes: S72.009A - Fracture of unspecified part of neck of unspecified femur , initial encounter for closed fracture Status: Resolved Plan: S/P left hip reduction and intramedullary nail fixation on 04-21-17 -c/w Calcium/Vitamin D (10) Hypertension ICD Codes: I10 - Essential (primary) hypertension Status: Chronic Plan: -Antihypertensives to keep SBP<160, as per critical care recs -c/w clonidine 0.1mg Q6h PRN SBP >160 -c/w lisinopril 20mg Q12h po Echocardiogram 04/24 - EF 50 to 55%. Mild concentric LVH. (11) Fluids, Electrolytes, and Nutrition Status: Acute Plan: Fluids: through PEG tube Electrolyte: Continue to monitor periodically, replete as needed Nutrition: continuous Glucerna tube feeds and free water, pump at 45mls/hr, tolerating feeds well, no residual. Protein 1 pack TID. Supplements: calcium TID and vit D3 QD DVT ppx: SCDs/heparin CVA ppx: aspirin 325 mg QD GI ppx: Lansoprazole 30mg qd via NG Problem Qualifiers (1) Chronic respiratory failure: Qualified Codes: J96.11 - Chronic respiratory failure with hypoxia (2) UTI (urinary tract infection): Qualified Codes: N39.0 - Urinary tract infection, site not specified (3) Sacral decubitus ulcer: Qualified Codes: L89.154 - Pressure ulcer of sacral region, stage 4 (4) Type 2 diabetes mellitus: Qualified Codes: E11.9 - Type 2 diabetes mellitus without complications (5) Hip fracture: (6) Hypertension: Qualified Codes: I10 - Essential (primary) hypertension Jared Ennis MD R2 Aug 08, 2017 08:45
[2017-08-08] MEDS: ASPIRIN 325 MG TAB DOBHOFF SCH (08:55)
[2017-08-08] MEDS: CHOLECALCIFEROL (VIT D3) 5000 UNIT CAP PO SCH (08:56)
[2017-08-08] MEDS: LANSOPRAZOLE SOLUTAB 30 MG TAB NG SCH (08:56)
[2017-08-08] MEDS: CALCIUM/VITAMIN D 250 MG/125 U TAB PO SCH ×3 (08:56→17:34)
[2017-08-08] MEDS: LISINOPRIL 10 MG TAB PO SCH ×2 (08:56→21:58)
[2017-08-08] MEDS: INSULIN DETEMIR 100 UNITS/ML VIAL SQ SCH ×2 (08:57→21:00)
[2017-08-08] MEDS: POLYETHYLENE GLYCOL 17 GM PKG PEG SCH (08:58)
[2017-08-08] MEDS: SODIUM CHLORIDE 0.9% FLUSH 5 ML FLUSH IV FLUSH SCH ×2 (09:00→21:00)
--- NOTE | 2017-08-08 10:06 | HHI.PR ---
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 Sleeping Small amount of trach secretions No new complaint Objective Vital Signs Vital Signs Date Time Temp Pulse Resp B/P (MAP) Pulse Ox O2 Delivery O2 Flow Rate FiO2 08/08/17 09:22 95 T-piece 28 08/08/17 09:22 95 T-piece 28 08/08/17 08:00 96.6 93 17 157/79 (105) 98 08/08/17 08:00 95 T-Piece 6.00 35 08/08/17 00:00 97.8 92 20 152/76 (101) 96 08/07/17 20:37 95 T-piece 28 08/07/17 20:37 95 T-piece 28 08/07/17 20:09 95 T-Piece 6.00 35 08/07/17 20:00 97.7 80 19 121/58 (79) 99 08/07/17 16:00 97.3 72 18 136/66 (89) 100 08/07/17 12:00 96.6 85 18 140/72 (94) 94 I/O 08/07/17 08/07/17 08/07/17 08/08/17 08/08/17 08/08/17 07:00 15:00 23:00 07:00 15:00 23:00 Intake Total 383 ml 270 ml 753 ml 384 ml Output Total 700 ml 600 ml 1000 ml Balance -317 ml 270 ml 153 ml -616 ml Intake Oral 0 ml 0 ml Tube Feeding 383 ml 270 ml 633 ml 384 ml Other 120 ml Output Urine Total 700 ml 600 ml 1000 ml # Bowel Movements 2 2 3 Result Diagram: 08/04/17 1644 08/05/17 0628 Objective Remarks GENERAL: Elderly female,NAD SKIN: Warm and dry. HEAD: Normocephalic. EYES: No scleral icterus. No injection or drainage. NECK: Supple, trachea midline. No JVD or lymphadenopathy. CARDIOVASCULAR: Regular rate and rhythm without murmurs, gallops, or rubs. RESPIRATORY: Breath sounds equal bilaterally. No accessory muscle use. GASTROINTESTINAL: Abdomen soft, non-tender, nondistended. MUSCULOSKELETAL: No cyanosis, or edema. BACK: Nontender without obvious deformity. No CVA tenderness. A/P Assessment and Plan RF,S/P Trach CVA Pneumonia Pleural effusion PLAN: Cont Abx Aerosol nebs Supplement 02 Trach care TF Stable Pulm, available prn over weekend Chris Rizo MD Aug 08, 2017 10:06
[2017-08-08] MEDS ORDERED: FUROSEMIDE 40 MG/5 ML UNIT DOSE CUP NG ONE (12:15)
[2017-08-08] MEDS: BENEPROTEIN POWDER 1 PACK G-TUBE SCH ×3 (12:54→17:34)
[2017-08-09] VITALS (10 sets, daily range): BP systolic 110–172; BP diastolic 56–86; PULSE 59–95; RESP 15–21; TEMP 95.3–97.1; O2SAT 94–100
[2017-08-09] MEDS: cloNIDine HCL 0.1 MG TAB PO PRN (01:09)
[2017-08-09] MEDS: RESP: COLISTIN 150 MG VIAL NEB SCH ×3 (02:12→11:43)
[2017-08-09] MEDS: INSULIN ASPART SUPPLEMENTAL SCALE SQ SCH ×4 (05:43→23:54)
[2017-08-09] MEDS: HEPARIN SODIUM - SQ 10,000 UNITS/ML VIAL SQ SCH ×3 (05:57→21:43)
[2017-08-09] MEDS: ARTIFICIAL TEARS OPTH SOLN 15 ML BTL EACH EYE SCH ×3 (05:57→21:43)
[2017-08-09] MEDS: LANSOPRAZOLE SOLUTAB 30 MG TAB NG SCH (08:40)
[2017-08-09] MEDS: ASPIRIN 325 MG TAB DOBHOFF SCH (08:40)
[2017-08-09] MEDS: CHOLECALCIFEROL (VIT D3) 5000 UNIT CAP PO SCH (08:40)
[2017-08-09] MEDS: CALCIUM/VITAMIN D 250 MG/125 U TAB PO SCH ×3 (08:40→17:27)
[2017-08-09] MEDS: LISINOPRIL 10 MG TAB PO SCH ×2 (08:40→20:16)
[2017-08-09] MEDS: SODIUM CHLORIDE 0.9% FLUSH 5 ML FLUSH IV FLUSH SCH ×2 (08:40→20:16)
[2017-08-09] MEDS: INSULIN DETEMIR 100 UNITS/ML VIAL SQ SCH ×2 (08:41→20:16)
[2017-08-09] MEDS: BENEPROTEIN POWDER 1 PACK G-TUBE SCH ×3 (08:41→17:27)
[2017-08-09] MEDS: POLYETHYLENE GLYCOL 17 GM PKG PEG SCH (08:41)
--- NOTE | 2017-08-09 09:35 | HHI.FPPN ---
Subjective Remarks No acute events overnight. Afebrile, vitals stable. Patient seen and examined this AM. Non responding to verbal or painful stimuli. NAD. On trach collar. 1100 cc UOP past 24 hours. Objective Vitals Vital Signs Date Time Temp Pulse Resp B/P (MAP) Pulse Ox O2 Delivery O2 Flow Rate FiO2 08/09/17 08:00 97.1 80 18 117/70 (86) 96 08/09/17 04:00 95.4 111/56 (74) 08/09/17 02:13 96 T-piece 6.00 28 08/09/17 02:13 96 T-piece 6.00 28 08/09/17 00:00 95.4 82 17 172/81 (111) 94 08/08/17 20:00 T-Piece 35 08/08/17 20:00 95.3 86 17 154/76 (102) 93 08/08/17 16:08 100 T-piece 28 08/08/17 16:00 95.9 92 18 115/67 (83) 99 08/08/17 12:00 95.9 92 17 148/78 (101) 96 I/O 08/08/17 08/08/17 08/08/17 08/09/17 08/09/17 08/09/17 07:00 15:00 23:00 07:00 15:00 23:00 Intake Total 384 ml 330 ml 597 ml Output Total 1000 ml 550 ml 550 ml Balance -616 ml -220 ml 47 ml Intake Oral 0 ml 0 ml Tube Feeding 384 ml 270 ml 417 ml Tube Irrigant 60 ml Other 180 ml Output Urine Total 1000 ml 550 ml 550 ml # Bowel Movements 3 1 Result Diagram: 08/05/17 0628 Objective Remarks GEN: Appears comfortable. NAD. Trach and PEG. HEAD: Normocephalic. Atraumatic. Right side facial droop. LUNGS: Decreased sounds in b/l bases, breathing spontaneously via T-tube. CARDIOVASCULAR: NRRR, normal S1/S2, no murmur GI/ABD: Soft, non-distended. No grimacing with palpation. Feeding tube insertion point with no redness, no distention NEURO: Not able to track. Flaccid paralysis on the right side. MUSC: SCDs on bilateral lower extremities. Pedal pulses present. SKIN: Sacral pressure ulcer extends from anus to coccyx. Stage II. EXTREMITIES: 1+ pitting edema up to distal tibia of right lower extremity. Trace lower extremity edema of left foot. Other: urinary catheter in place. Procedures ORIF 04/21/17 Intubation 04/30/17 Chest tube placement 05/07/17, removed 05/12/17 Trach placement 05/15/17 PEG tube placement 05/16/17 A/P Assessment and Plan 76 y/o female with HTN, DM admitted for DKA and hip fracture s/p large CVA after ORIF she is currently stable with her current treatment but has had no meaningful functional recovery and do not anticipate any further neurologic recovery from here on. Dr. Harper, Dr. Tran and case management had a long discussion with the daughter on 07/23 and the patient's daughter is still hopeful for full recovery for her mom in spite of her mom's state of health since her CVA. DW the daughter that it is our belief based on her clinical picture that she will not make any sort of meaningful recovery and will remain on the trach and PEG for the rest of her life. DW the daughter due to her status that the patient will likely continue to decline and continue to acquire infections associated with this type of clinical picture including UTI, PNA, and sepsis. DW the daughter to consider the QOL that her mother would have wanted. We recommend that this patient receive Hospice services as we would not anticipate her living longer than 6 months. The daughter does not want to consider this at this time and she is the sole decision maker for this patient. In that case, we will continue to treat the patient aggressively as issues arise and honor the families wishes. A one-hour long family meeting was held (07/26) with patient's daughter Trice, Dr. Harper, Dr. Watts and patient's nurse to discuss patient's poor prognosis. We felt it was important to listen to daughter's perspective and address any questions or concerns she has about her mother's care. Patient goals of care were also discussed. Daughter still wants aggressive treatment. Daughter was informed that from our medical standpoint we do not anticipated any meaningful recovery from her mother's current baseline. Neither do we anticipate for mother to be able to get off PEG tube feeds and trach. However, we will continue to honor daughter's wishes and provide aggressive medical care. ID and pulmonology are actively following. Patient is currently being treated for MDR pseudomonas pna and pulmonology recommended bronchoscopy. Risk and benefits of the procedure were explained and discussed with daughter. The option for her mother not to have the bronchoscopy and to instead continue treatment with antibiotics was also discussed. She is currently unsure about the procedure. She was advised to take time to think about her decision keeping in mind what her mother's wishes would be. Problem List: (1) Chronic respiratory failure ICD Codes: J96.10 - Chronic respiratory failure, unspecified whether with hypoxia or hypercapnia Plan: At this point, respiratory failure is chronic on T-tube Hospital Acquired PNA on 07/21 CXR 08/01 demonstrating bilateral airspace disease and effusions, R>L sputum culture positive for Multi drug resistant pseudomonas Blood cultures from 07/21 no growth (final) Repeat blood cultures from 07/25 no growth final Legionella and S pneumonia urine antigen negative -ID following (Dr. Saleh), recommendations appreciated - Discontinued ceftolozane/ tazobactam - Continue Colistin Neb 75 joseph q8hr (08/06-08/11) for 5 days and then stop - Continue to follow cultures -Pulmonology following (Dr. Rizo), recommended bronchoscopy procedure, daughter refused at this time - CXR 07/29 revealed diffuse bilateral airspace disease with interval worsening on the right, lasix 40mg IV given once for fluid overload - Repeat CXR revealed worsening b/l airspace disease and effusion, slightly worse on the left since 07/29. Right effusion and airspace diases remains larger than the left side. - US chest wall, moderate right pleural effusion. - Consult IR for US guided thoracentesis, performed on 08/05 removing 1450 cc of clear yellow fluid Infection History Pseudomonas hospital-acquired pneumonia - active MSSA bacteremia - resolved Serratia/staph aureus pneumonia - resolved C glabrata UTI - resolved Citrobacter UTI - resolved Serratia/MSSA sputum VAP - resolved Antibiotic History Cefazolin: 04/21-04/22, 05/15-05/16 Cefepime: 04/30-05/04, 05/27-06/03 Ceftrioxone 05/26-05/27 Erythromycin 06/16-06/18, 06/19 Gentamicin 04/21 vancomycin 04/30-05/04, 06/21-06/23 Zosyn 07/21 - 07/25 Azithromycin 07/21 - 07/25 Fluconazole 04/29 - ; 07/26 ceftolozane/ tazobactam 07/25 - 08/06 Colistin nebs q8h 08/06 - 08/11 (2) Pleural effusion ICD Codes: J90 - Pleural effusion, not elsewhere classified Status: Acute Plan: US chest 08/01 demonstrating moderate right pleural effusion IR consulted for thoracentesis performed 08/05 Further plan as above (3) Acute CVA (cerebrovascular accident) ICD Codes: I63.9 - Cerebral infarction, unspecified Status: Chronic Plan: Neurologically stable, no improvement. Overall prognosis is poor. Persistent oxygen requirement See above note about meeting with Daughter on 07/23 and 07/26. Daughter still desires full code and aggressive care -Titrate oxygen via trach to maintain O2 saturation above 92% -Continue tube fees at 45ml/hr 24 hours per day thru peg Tube -Neurosurgery, neurology and palliative care have all been consulted in the past and agree with very poor prognosis with no meaningful neurologic recovery. History and imaging: Patient found minimally responsive with neurological deficits around 0820 04/24. Stat CT of head was ordered, which showed large left MCA infarct. Diffuse edema throughout the left MCA distribution, suggested completed infarct. This was discussed and was not a candidate for intracranial intervention. CT (04/30): Reduction in midline shift to 11mm. Unchanged large left MCA infarction. CT head (05/06) shows: Evolving large left-sided MCA territory infarct with minimally improved [id number] subfalcine shift. No intercurrent hemorrhage or other acute abnormality. Echocardiogram- The left ventricular systolic function is low normal with an estimated ejection fraction in the range of 50-55%. Mild concentric left ventricular hypertrophy. Normal left ventricular size. Ufgko-vz-dvsn mitral valve regurgitation. Carotid Artery US- No hemodynamically significant carotid stenosis (4) UTI (urinary tract infection) ICD Codes: N39.0 - Urinary tract infection, site not specified Status: Resolved Plan: UCx on 07/15 positive for E coli Repeat UCx on 07/20 positive for C. Freundii UCx 07/24 grew only yeast - See above for antibiotic history and coverage (5) Sacral decubitus ulcer ICD Codes: L89.159 - Pressure ulcer of sacral region, unspecified stage Status: Chronic Plan: Patient with Stage II pressure injury over the coccyx -Wound care consult appreciated: 1. Please cleanse coccyx wound every 3 days and PRN for soiling. 2. Apply Calcium Alginate to open wound bed. 3. Secure with bordered gauze every 3 days and PRN for soiling. 4. Continue to turn patient every 2 hours or PRN for comfort. 5. Use one ultrasorb for moisture. Please use flat sheet for repositioning. (6) Anemia ICD Codes: D64.9 - Anemia, unspecified Status: Chronic Plan: s/p 1u of PRBC on 05/28/17. Hgb stable Hemoccult negative on 05/29 - monitor H&H periodically Stable 07/31 (7) Urinary retention ICD Codes: R33.9 - Retention of urine, unspecified Status: Chronic Plan: - Cath last changed 07/15, pt afebrile - Urine output WNL (8) Type 2 diabetes mellitus ICD Codes: E11.9 - Type 2 diabetes mellitus without complications Status: Chronic Plan: - BSBG ranging 120-222 past 24 hours, requiring 5 units total supplemental insulin -continue to monitor BSG -Decreased Levemir to 15 units q 12 due to BG range below goal. -Will continue to monitor -BS goal 140-180 -Discontinued SSI on 07/16 -AccuCheks QShift -Glucerna for PEG tube feedings @ 45 ml/hr -Glucagon 1 mg per PRN protocol for hypoglycemia BS <70mg/dL History Admitted for DKA which has now resolved. Hemoglobin A1C is 12.9. Diabetes Type II is uncontrolled. (9) Hip fracture ICD Codes: S72.009A - Fracture of unspecified part of neck of unspecified femur , initial encounter for closed fracture Status: Resolved Plan: S/P left hip reduction and intramedullary nail fixation on 04-21-17 -c/w Calcium/Vitamin D (10) Hypertension ICD Codes: I10 - Essential (primary) hypertension Status: Chronic Plan: -Antihypertensives to keep SBP<160, as per critical care recs -c/w clonidine 0.1mg Q6h PRN SBP >160 -c/w lisinopril 20mg Q12h po Echocardiogram 04/24 - EF 50 to 55%. Mild concentric LVH. (11) Fluids, Electrolytes, and Nutrition Status: Acute Plan: Fluids: through PEG tube Electrolyte: Continue to monitor periodically, replete as needed Nutrition: continuous Glucerna tube feeds and free water, pump at 45mls/hr, tolerating feeds well, no residual. Protein 1 pack TID. Supplements: calcium TID and vit D3 QD DVT ppx: SCDs/heparin CVA ppx: aspirin 325 mg QD GI ppx: Lansoprazole 30mg qd via NG Problem Qualifiers (1) Chronic respiratory failure: Qualified Codes: J96.11 - Chronic respiratory failure with hypoxia (2) UTI (urinary tract infection): Qualified Codes: N39.0 - Urinary tract infection, site not specified (3) Sacral decubitus ulcer: Qualified Codes: L89.154 - Pressure ulcer of sacral region, stage 4 (4) Type 2 diabetes mellitus: Qualified Codes: E11.9 - Type 2 diabetes mellitus without complications (5) Hip fracture: (6) Hypertension: Qualified Codes: I10 - Essential (primary) hypertension Jared Ennis MD R2 Aug 09, 2017 09:35
[2017-08-10] VITALS (7 sets, daily range): BP systolic 117–150; BP diastolic 66–98; PULSE 87–98; RESP 16–20; TEMP 95.7–97.7; O2SAT 90–100
[2017-08-10] MEDS: RESP: COLISTIN 150 MG VIAL NEB SCH ×3 (00:26→17:01)
[2017-08-10] MEDS: ARTIFICIAL TEARS OPTH SOLN 15 ML BTL EACH EYE SCH ×3 (05:15→20:25)
[2017-08-10] MEDS: HEPARIN SODIUM - SQ 10,000 UNITS/ML VIAL SQ SCH ×3 (05:15→20:25)
[2017-08-10] MEDS: INSULIN ASPART SUPPLEMENTAL SCALE SQ SCH ×3 (05:16→16:13)
[2017-08-10] MEDS: LANSOPRAZOLE SOLUTAB 30 MG TAB NG SCH (08:26)
[2017-08-10] MEDS: LISINOPRIL 10 MG TAB PO SCH ×2 (08:27→20:24)
[2017-08-10] MEDS: CHOLECALCIFEROL (VIT D3) 5000 UNIT CAP PO SCH (08:27)
[2017-08-10] MEDS: ASPIRIN 325 MG TAB DOBHOFF SCH (08:27)
[2017-08-10] MEDS: SODIUM CHLORIDE 0.9% FLUSH 5 ML FLUSH IV FLUSH SCH ×2 (08:27→20:22)
[2017-08-10] MEDS: BENEPROTEIN POWDER 1 PACK G-TUBE SCH ×3 (08:27→16:13)
[2017-08-10] MEDS: POLYETHYLENE GLYCOL 17 GM PKG PEG SCH (08:27)
[2017-08-10] MEDS: CALCIUM/VITAMIN D 250 MG/125 U TAB PO SCH ×3 (08:27→16:13)
[2017-08-10] MEDS: INSULIN DETEMIR 100 UNITS/ML VIAL SQ SCH ×2 (08:28→20:25)
--- NOTE | 2017-08-10 10:07 | HHI.FPPN ---
Subjective Remarks No acute events overnight. Afebrile, vital stable. Patient seen and examined this morning. Not responding to verbal or painful stimuli. Some spontaneous movements of left upper extremity noted. Not able to track. 1150 cc UOP over past 24 hours. + fluid balance of 445 cc. Objective Vitals Vital Signs Date Time Temp Pulse Resp B/P (MAP) Pulse Ox O2 Delivery O2 Flow Rate FiO2 08/10/17 08:21 100 T-piece 28 08/10/17 08:00 97.7 87 20 117/98 (104) 100 08/10/17 00:22 98 T-piece 28 08/10/17 00:22 98 T-piece 28 08/09/17 23:56 96.8 95 17 121/86 (98) 96 08/09/17 20:15 T-Piece 35 08/09/17 20:04 95.8 84 21 129/79 (96) 95 08/09/17 16:00 96.5 79 15 120/67 (84) 97 08/09/17 12:00 96.7 59 15 110/64 (79) 97 08/09/17 11:47 100 T-piece 28 I/O 08/09/17 08/09/17 08/09/17 08/10/17 08/10/17 08/10/17 07:00 15:00 23:00 07:00 15:00 23:00 Intake Total 597 ml 895 ml 700 ml Output Total 550 ml 350 ml 800 ml Balance 47 ml 545 ml -100 ml Intake Oral 0 ml 0 ml Tube Feeding 417 ml 495 ml 580 ml Tube Irrigant 120 ml Other 180 ml 400 ml Output Urine Total 550 ml 350 ml 800 ml # Bowel Movements 0 4 Objective Remarks GEN: Appears comfortable. NAD. Trach and PEG. HEAD: Normocephalic. Atraumatic. Right side facial droop. LUNGS: Decreased sounds in b/l bases, breathing spontaneously via T-tube. CARDIOVASCULAR: NRRR, normal S1/S2, no murmur GI/ABD: Soft, non-distended. No grimacing with palpation. Feeding tube insertion point with no redness, no distention NEURO: Not able to track. Flaccid paralysis on the right side. MUSC: SCDs on bilateral lower extremities. Pedal pulses present. SKIN: Sacral pressure ulcer extends from anus to coccyx. Stage II. EXTREMITIES: 1+ pitting edema up to distal tibia of right lower extremity. Trace lower extremity edema of left foot. Edema of right upper extremity improved from prior exam. Other: urinary catheter in place. Procedures ORIF 04/21/17 Intubation 04/30/17 Chest tube placement 05/07/17, removed 05/12/17 Trach placement 05/15/17 PEG tube placement 05/16/17 A/P Assessment and Plan 76 y/o female with HTN, DM admitted for DKA and hip fracture s/p large CVA after ORIF she is currently stable with her current treatment but has had no meaningful functional recovery and do not anticipate any further neurologic recovery from here on. Dr. Harper, Dr. Tran and case management had a long discussion with the daughter on 07/23 and the patient's daughter is still hopeful for full recovery for her mom in spite of her mom's state of health since her CVA. DW the daughter that it is our belief based on her clinical picture that she will not make any sort of meaningful recovery and will remain on the trach and PEG for the rest of her life. DW the daughter due to her status that the patient will likely continue to decline and continue to acquire infections associated with this type of clinical picture including UTI, PNA, and sepsis. DW the daughter to consider the QOL that her mother would have wanted. We recommend that this patient receive Hospice services as we would not anticipate her living longer than 6 months. The daughter does not want to consider this at this time and she is the sole decision maker for this patient. In that case, we will continue to treat the patient aggressively as issues arise and honor the families wishes. A one-hour long family meeting was held (07/26) with patient's daughter Trice, Dr. Harper, Dr. Watts and patient's nurse to discuss patient's poor prognosis. We felt it was important to listen to daughter's perspective and address any questions or concerns she has about her mother's care. Patient goals of care were also discussed. Daughter still wants aggressive treatment. Daughter was informed that from our medical standpoint we do not anticipated any meaningful recovery from her mother's current baseline. Neither do we anticipate for mother to be able to get off PEG tube feeds and trach. However, we will continue to honor daughter's wishes and provide aggressive medical care. ID and pulmonology are actively following. Patient is currently being treated for MDR pseudomonas pna and pulmonology recommended bronchoscopy. Risk and benefits of the procedure were explained and discussed with daughter. The option for her mother not to have the bronchoscopy and to instead continue treatment with antibiotics was also discussed. She is currently unsure about the procedure. She was advised to take time to think about her decision keeping in mind what her mother's wishes would be. Problem List: (1) Chronic respiratory failure ICD Codes: J96.10 - Chronic respiratory failure, unspecified whether with hypoxia or hypercapnia Plan: At this point, respiratory failure is chronic on T-tube Hospital Acquired PNA on 07/21 CXR 08/01 demonstrating bilateral airspace disease and effusions, R>L sputum culture positive for Multi drug resistant pseudomonas Blood cultures from 07/21 no growth (final) Repeat blood cultures from 07/25 no growth final Legionella and S pneumonia urine antigen negative -ID following (Dr. Saleh), recommendations appreciated - Discontinued ceftolozane/ tazobactam - Continue Colistin Neb 75 joseph q8hr (08/06-08/11) for 5 days and then stop - Continue to follow cultures -Pulmonology following (Dr. Rizo), recommended bronchoscopy procedure, daughter refused at this time - CXR 07/29 revealed diffuse bilateral airspace disease with interval worsening on the right, lasix 40mg IV given once for fluid overload - Repeat CXR revealed worsening b/l airspace disease and effusion, slightly worse on the left since 07/29. Right effusion and airspace diases remains larger than the left side. - US chest wall, moderate right pleural effusion. - Consulted IR for US guided thoracentesis, performed on 08/05 removing 1450 cc of clear yellow fluid - Pleural fluid culture from 08/05 with no growth after 72 hours Infection History Pseudomonas hospital-acquired pneumonia - active MSSA bacteremia - resolved Serratia/staph aureus pneumonia - resolved C glabrata UTI - resolved Citrobacter UTI - resolved Serratia/MSSA sputum VAP - resolved Antibiotic History Cefazolin: 04/21-04/22, 05/15-05/16 Cefepime: 04/30-05/04, 05/27-06/03 Ceftrioxone 05/26-05/27 Erythromycin 06/16-06/18, 06/19 Gentamicin 04/21 vancomycin 04/30-05/04, 06/21-06/23 Zosyn 07/21 - 07/25 Azithromycin 07/21 - 07/25 Fluconazole 04/29 - ; 07/26 ceftolozane/ tazobactam 07/25 - 08/06 Colistin nebs q8h 08/06 - 08/11 (2) Pleural effusion ICD Codes: J90 - Pleural effusion, not elsewhere classified Status: Acute Plan: US chest 08/01 demonstrating moderate right pleural effusion IR consulted for thoracentesis performed 08/05 Further plan as above (3) Acute CVA (cerebrovascular accident) ICD Codes: I63.9 - Cerebral infarction, unspecified Status: Chronic Plan: Neurologically stable, no improvement. Overall prognosis is poor. Persistent oxygen requirement See above note about meeting with Daughter on 07/23 and 07/26. Daughter still desires full code and aggressive care -Titrate oxygen via trach to maintain O2 saturation above 92% -Continue tube fees at 45ml/hr 24 hours per day thru peg Tube -Neurosurgery, neurology and palliative care have all been consulted in the past and agree with very poor prognosis with no meaningful neurologic recovery. History and imaging: Patient found minimally responsive with neurological deficits around 0820 04/24. Stat CT of head was ordered, which showed large left MCA infarct. Diffuse edema throughout the left MCA distribution, suggested completed infarct. This was discussed and was not a candidate for intracranial intervention. CT (04/30): Reduction in midline shift to 11mm. Unchanged large left MCA infarction. CT head (05/06) shows: Evolving large left-sided MCA territory infarct with minimally improved [id number]-et-[id number] subfalcine shift. No intercurrent hemorrhage or other acute abnormality. Echocardiogram- The left ventricular systolic function is low normal with an estimated ejection fraction in the range of 50-55%. Mild concentric left ventricular hypertrophy. Normal left ventricular size. Ncmot-vk-omhy mitral valve regurgitation. Carotid Artery US- No hemodynamically significant carotid stenosis (4) UTI (urinary tract infection) ICD Codes: N39.0 - Urinary tract infection, site not specified Status: Resolved Plan: UCx on 07/15 positive for E coli Repeat UCx on 07/20 positive for C. Freundii UCx 07/24 grew only yeast - See above for antibiotic history and coverage (5) Sacral decubitus ulcer ICD Codes: L89.159 - Pressure ulcer of sacral region, unspecified stage Status: Chronic Plan: Patient with Stage II pressure injury over the coccyx -Wound care consult appreciated: 1. Please cleanse coccyx wound every 3 days and PRN for soiling. 2. Apply Calcium Alginate to open wound bed. 3. Secure with bordered gauze every 3 days and PRN for soiling. 4. Continue to turn patient every 2 hours or PRN for comfort. 5. Use one ultrasorb for moisture. Please use flat sheet for repositioning. (6) Anemia ICD Codes: D64.9 - Anemia, unspecified Status: Chronic Plan: s/p 1u of PRBC on 05/28/17. Hgb stable Hemoccult negative on 05/29 - monitor H&H periodically Stable 07/31 (7) Urinary retention ICD Codes: R33.9 - Retention of urine, unspecified Status: Chronic Plan: - Cath last changed 07/15, pt afebrile - Urine output WNL (8) Type 2 diabetes mellitus ICD Codes: E11.9 - Type 2 diabetes mellitus without complications Status: Chronic Plan: - BSBG ranging 120-222 past 24 hours, requiring 5 units total supplemental insulin -continue to monitor BSG -Decreased Levemir to 15 units q 12 due to BG range below goal. -Will continue to monitor -BS goal 140-180 -Discontinued SSI on 07/16 -AccuCheks QShift -Glucerna for PEG tube feedings @ 45 ml/hr -Glucagon 1 mg per PRN protocol for hypoglycemia BS <70mg/dL History Admitted for DKA which has now resolved. Hemoglobin A1C is 12.9. Diabetes Type II is uncontrolled. (9) Hip fracture ICD Codes: S72.009A - Fracture of unspecified part of neck of unspecified femur , initial encounter for closed fracture Status: Resolved Plan: S/P left hip reduction and intramedullary nail fixation on 04-21-17 -c/w Calcium/Vitamin D (10) Hypertension ICD Codes: I10 - Essential (primary) hypertension Status: Chronic Plan: -Antihypertensives to keep SBP<160, as per critical care recs -c/w clonidine 0.1mg Q6h PRN SBP >160 -c/w lisinopril 20mg Q12h po Echocardiogram 04/24 - EF 50 to 55%. Mild concentric LVH. (11) Fluids, Electrolytes, and Nutrition Status: Acute Plan: Fluids: through PEG tube Electrolyte: Continue to monitor periodically, replete as needed Nutrition: continuous Glucerna tube feeds and free water, pump at 45mls/hr, tolerating feeds well, no residual. Protein 1 pack TID. Supplements: calcium TID and vit D3 QD DVT ppx: SCDs/heparin CVA ppx: aspirin 325 mg QD GI ppx: Lansoprazole 30mg qd via NG Problem Qualifiers (1) Chronic respiratory failure: Qualified Codes: J96.11 - Chronic respiratory failure with hypoxia (2) UTI (urinary tract infection): Qualified Codes: N39.0 - Urinary tract infection, site not specified (3) Sacral decubitus ulcer: Qualified Codes: L89.154 - Pressure ulcer of sacral region, stage 4 (4) Type 2 diabetes mellitus: Qualified Codes: E11.9 - Type 2 diabetes mellitus without complications (5) Hip fracture: (6) Hypertension: Qualified Codes: I10 - Essential (primary) hypertension Jared Ennis MD R2 Aug 10, 2017 10:07
[2017-08-11] VITALS (7 sets, daily range): BP systolic 126–174; BP diastolic 78–90; PULSE 88–98; RESP 18–20; TEMP 96.6–98.7; O2SAT 92–100
[2017-08-11] MEDS: RESP: COLISTIN 150 MG VIAL NEB SCH ×3 (00:32→20:21)
[2017-08-11] MEDS: HEPARIN SODIUM - SQ 10,000 UNITS/ML VIAL SQ SCH ×3 (05:26→20:36)
[2017-08-11] MEDS: ARTIFICIAL TEARS OPTH SOLN 15 ML BTL EACH EYE SCH ×3 (05:26→20:41)
[2017-08-11] MEDS: INSULIN ASPART SUPPLEMENTAL SCALE SQ SCH ×4 (06:00→17:34)
[2017-08-11] MEDS: POLYETHYLENE GLYCOL 17 GM PKG PEG SCH (08:25)
[2017-08-11] MEDS: SODIUM CHLORIDE 0.9% FLUSH 5 ML FLUSH IV FLUSH SCH ×2 (09:00→20:40)
[2017-08-11] MEDS: INSULIN DETEMIR 100 UNITS/ML VIAL SQ SCH ×2 (09:00→20:38)
[2017-08-11] MEDS: BENEPROTEIN POWDER 1 PACK G-TUBE SCH ×3 (09:00→17:34)
[2017-08-11] MEDS: CALCIUM/VITAMIN D 250 MG/125 U TAB PO SCH ×3 (10:30→17:34)
[2017-08-11] MEDS: LANSOPRAZOLE SOLUTAB 30 MG TAB NG SCH (10:31)
[2017-08-11] MEDS: LISINOPRIL 10 MG TAB PO SCH ×2 (10:31→20:37)
[2017-08-11] MEDS: CHOLECALCIFEROL (VIT D3) 5000 UNIT CAP PO SCH (10:31)
[2017-08-11] MEDS: ASPIRIN 325 MG TAB DOBHOFF SCH (10:31)
--- NOTE | 2017-08-11 11:12 | HHI.FPPN ---
Subjective Remarks No meaningful change. Review of systems Limited secondary to mental state. Objective Vitals Vital Signs Date Time Temp Pulse Resp B/P (MAP) Pulse Ox O2 Delivery O2 Flow Rate FiO2 08/11/17 08:00 99 T-piece 28 08/11/17 08:00 97.4 92 18 141/87 (105) 98 08/11/17 08:00 99 T-piece 28 08/11/17 00:32 100 T-piece 28 08/11/17 00:24 96.6 89 18 126/85 (99) 96 08/10/17 21:23 92 T-piece 5.00 28 08/10/17 21:23 92 T-piece 28 08/10/17 20:22 96 Trach Collar 08/10/17 20:18 96.2 89 18 150/87 (108) 99 08/10/17 16:00 96.4 98 16 146/66 (92) 90 08/10/17 12:00 95.7 89 17 150/84 (106) 93 I/O 08/10/17 08/10/17 08/10/17 08/11/17 08/11/17 08/11/17 07:00 15:00 23:00 07:00 15:00 23:00 Intake Total 700 ml 0 ml 666 ml 0 ml Output Total 800 ml 450 ml 780 ml Balance -100 ml -450 ml -114 ml 0 ml Intake Oral 0 ml 0 ml Tube Feeding 580 ml 546 ml Tube Irrigant 120 ml 120 ml Output Urine Total 800 ml 450 ml 780 ml # Bowel Movements 4 1 3 Objective Remarks GEN: Appears comfortable. NAD. Trach and PEG. HEAD: Normocephalic. Atraumatic. Right side facial droop. LUNGS: Decreased sounds in b/l bases, breathing spontaneously via T-tube. CARDIOVASCULAR: NRRR, normal S1/S2, no murmur GI/ABD: Soft, non-distended. No grimacing with palpation. Feeding tube insertion point with no redness, no distention NEURO: Not able to track. Flaccid paralysis on the right side. MUSC: SCDs on bilateral lower extremities. Pedal pulses present. SKIN: Sacral pressure ulcer extends from anus to coccyx. Stage II. EXTREMITIES: 1+ pitting edema up to distal tibia of right lower extremity. Trace lower extremity edema of left foot. Edema of right upper extremity improved from prior exam. Other: urinary catheter in place. Procedures ORIF 04/21/17 Intubation 04/30/17 Chest tube placement 05/07/17, removed 05/12/17 Trach placement 05/15/17 PEG tube placement 05/16/17 A/P Assessment and Plan 76 y/o female with HTN, DM admitted for DKA and hip fracture s/p large CVA after ORIF she is currently stable with her current treatment but has had no meaningful functional recovery and do not anticipate any further neurologic recovery from here on. Dr. Harper, Dr. Tran and case management had a long discussion with the daughter on 07/23 and the patient's daughter is still hopeful for full recovery for her mom in spite of her mom's state of health since her CVA. DW the daughter that it is our belief based on her clinical picture that she will not make any sort of meaningful recovery and will remain on the trach and PEG for the rest of her life. DW the daughter due to her status that the patient will likely continue to decline and continue to acquire infections associated with this type of clinical picture including UTI, PNA, and sepsis. DW the daughter to consider the QOL that her mother would have wanted. We recommend that this patient receive Hospice services as we would not anticipate her living longer than 6 months. The daughter does not want to consider this at this time and she is the sole decision maker for this patient. In that case, we will continue to treat the patient aggressively as issues arise and honor the families wishes. A one-hour long family meeting was held (07/26) with patient's daughter Trice, Dr. Harper, Dr. Watts and patient's nurse to discuss patient's poor prognosis. We felt it was important to listen to daughter's perspective and address any questions or concerns she has about her mother's care. Patient goals of care were also discussed. Daughter still wants aggressive treatment. Daughter was informed that from our medical standpoint we do not anticipated any meaningful recovery from her mother's current baseline. Neither do we anticipate for mother to be able to get off PEG tube feeds and trach. However, we will continue to honor daughter's wishes and provide aggressive medical care. ID and pulmonology are actively following. Patient is currently being treated for MDR pseudomonas pna and pulmonology recommended bronchoscopy. Risk and benefits of the procedure were explained and discussed with daughter. The option for her mother not to have the bronchoscopy and to instead continue treatment with antibiotics was also discussed. She is currently unsure about the procedure. She was advised to take time to think about her decision keeping in mind what her mother's wishes would be. Problem List: (1) Chronic respiratory failure ICD Codes: J96.10 - Chronic respiratory failure, unspecified whether with hypoxia or hypercapnia Plan: At this point, respiratory failure is chronic on T-tube Hospital Acquired PNA on 07/21 CXR 08/01 demonstrating bilateral airspace disease and effusions, R>L sputum culture positive for Multi drug resistant pseudomonas Blood cultures from 07/21 no growth (final) Repeat blood cultures from 07/25 no growth final Legionella and S pneumonia urine antigen negative -ID following (Dr. Saleh), recommendations appreciated - Discontinued ceftolozane/ tazobactam - Continue Colistin Neb 75 joseph q8hr (08/06-08/11) for 5 days and then stop - Continue to follow cultures -Pulmonology following (Dr. Rizo), recommended bronchoscopy procedure, daughter refused at this time - CXR 07/29 revealed diffuse bilateral airspace disease with interval worsening on the right, lasix 40mg IV given once for fluid overload - Repeat CXR revealed worsening b/l airspace disease and effusion, slightly worse on the left since 07/29. Right effusion and airspace diases remains larger than the left side. - US chest wall, moderate right pleural effusion. - Consulted IR for US guided thoracentesis, performed on 08/05 removing 1450 cc of clear yellow fluid - Pleural fluid culture from 08/05 with no growth after 72 hours Infection History Pseudomonas hospital-acquired pneumonia - active MSSA bacteremia - resolved Serratia/staph aureus pneumonia - resolved C glabrata UTI - resolved Citrobacter UTI - resolved Serratia/MSSA sputum VAP - resolved Antibiotic History Cefazolin: 04/21-04/22, 05/15-05/16 Cefepime: 04/30-05/04, 05/27-06/03 Ceftrioxone 05/26-05/27 Erythromycin 06/16-06/18, 06/19 Gentamicin 04/21 vancomycin 04/30-05/04, 06/21-06/23 Zosyn 07/21 - 07/25 Azithromycin 07/21 - 07/25 Fluconazole 04/29 - ; 07/26 ceftolozane/ tazobactam 07/25 - 08/06 Colistin nebs q8h 08/06 - 08/11 (2) Pleural effusion ICD Codes: J90 - Pleural effusion, not elsewhere classified Status: Acute Plan: US chest 08/01 demonstrating moderate right pleural effusion IR consulted for thoracentesis performed 08/05 Further plan as above (3) Acute CVA (cerebrovascular accident) ICD Codes: I63.9 - Cerebral infarction, unspecified Status: Chronic Plan: Neurologically stable, no improvement. Overall prognosis is poor. Persistent oxygen requirement See above note about meeting with Daughter on 07/23 and 07/26. Daughter still desires full code and aggressive care -Titrate oxygen via trach to maintain O2 saturation above 92% -Continue tube fees at 45ml/hr 24 hours per day thru peg Tube -Neurosurgery, neurology and palliative care have all been consulted in the past and agree with very poor prognosis with no meaningful neurologic recovery. History and imaging: Patient found minimally responsive with neurological deficits around 0820 04/24. Stat CT of head was ordered, which showed large left MCA infarct. Diffuse edema throughout the left MCA distribution, suggested completed infarct. This was discussed and was not a candidate for intracranial intervention. CT (04/30): Reduction in midline shift to 11mm. Unchanged large left MCA infarction. CT head (05/06) shows: Evolving large left-sided MCA territory infarct with minimally improved [id number] subfalcine shift. No intercurrent hemorrhage or other acute abnormality. Echocardiogram- The left ventricular systolic function is low normal with an estimated ejection fraction in the range of 50-55%. Mild concentric left ventricular hypertrophy. Normal left ventricular size. [id number] mitral valve regurgitation. Carotid Artery US- No hemodynamically significant carotid stenosis (4) UTI (urinary tract infection) ICD Codes: N39.0 - Urinary tract infection, site not specified Status: Resolved Plan: UCx on 07/15 positive for E coli Repeat UCx on 07/20 positive for C. Freundii UCx 07/24 grew only yeast - See above for antibiotic history and coverage (5) Sacral decubitus ulcer ICD Codes: L89.159 - Pressure ulcer of sacral region, unspecified stage Status: Chronic Plan: Patient with Stage II pressure injury over the coccyx -Wound care consult appreciated: 1. Please cleanse coccyx wound every 3 days and PRN for soiling. 2. Apply Calcium Alginate to open wound bed. 3. Secure with bordered gauze every 3 days and PRN for soiling. 4. Continue to turn patient every 2 hours or PRN for comfort. 5. Use one ultrasorb for moisture. Please use flat sheet for repositioning. (6) Anemia ICD Codes: D64.9 - Anemia, unspecified Status: Chronic Plan: s/p 1u of PRBC on 05/28/17. Hgb stable Hemoccult negative on 05/29 - monitor H&H periodically Stable 07/31 (7) Urinary retention ICD Codes: R33.9 - Retention of urine, unspecified Status: Chronic Plan: - Cath last changed 07/15, pt afebrile - Urine output WNL (8) Type 2 diabetes mellitus ICD Codes: E11.9 - Type 2 diabetes mellitus without complications Status: Chronic Plan: - BSBG ranging 120-222 past 24 hours, requiring 5 units total supplemental insulin -continue to monitor BSG -Decreased Levemir to 15 units q 12 due to BG range below goal. -Will continue to monitor -BS goal 140-180 -Discontinued SSI on 07/16 -AccuCheks QShift -Glucerna for PEG tube feedings @ 45 ml/hr -Glucagon 1 mg per PRN protocol for hypoglycemia BS <70mg/dL History Admitted for DKA which has now resolved. Hemoglobin A1C is 12.9. Diabetes Type II is uncontrolled. (9) Hip fracture ICD Codes: S72.009A - Fracture of unspecified part of neck of unspecified femur , initial encounter for closed fracture Status: Resolved Plan: S/P left hip reduction and intramedullary nail fixation on 04-21-17 -c/w Calcium/Vitamin D (10) Hypertension ICD Codes: I10 - Essential (primary) hypertension Status: Chronic Plan: -Antihypertensives to keep SBP<160, as per critical care recs -c/w clonidine 0.1mg Q6h PRN SBP >160 -c/w lisinopril 20mg Q12h po Echocardiogram 04/24 - EF 50 to 55%. Mild concentric LVH. (11) Fluids, Electrolytes, and Nutrition Status: Acute Plan: Fluids: through PEG tube Electrolyte: Continue to monitor periodically, replete as needed Nutrition: continuous Glucerna tube feeds and free water, pump at 45mls/hr, tolerating feeds well, no residual. Protein 1 pack TID. Supplements: calcium TID and vit D3 QD DVT ppx: SCDs/heparin CVA ppx: aspirin 325 mg QD GI ppx: Lansoprazole 30mg qd via NG Problem Qualifiers (1) Chronic respiratory failure: Qualified Codes: J96.11 - Chronic respiratory failure with hypoxia (2) UTI (urinary tract infection): Qualified Codes: N39.0 - Urinary tract infection, site not specified (3) Sacral decubitus ulcer: Qualified Codes: L89.154 - Pressure ulcer of sacral region, stage 4 (4) Type 2 diabetes mellitus: Qualified Codes: E11.9 - Type 2 diabetes mellitus without complications (5) Hip fracture: (6) Hypertension: Qualified Codes: I10 - Essential (primary) hypertension Marcio Meade MD, R3 Aug 11, 2017 11:12
--- NOTE | 2017-08-11 18:39 | HHI.PR ---
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 Sleeping Small amount of trach secretions No new complaint no Fever Objective Vital Signs Vital Signs Date Time Temp Pulse Resp B/P (MAP) Pulse Ox O2 Delivery O2 Flow Rate FiO2 08/11/17 16:00 97.8 88 20 153/78 (103) 100 08/11/17 12:00 98.7 98 19 174/90 (118) 95 08/11/17 11:53 35 08/11/17 08:00 99 T-piece 28 08/11/17 08:00 97.4 92 18 141/87 (105) 98 08/11/17 08:00 99 T-piece 28 08/11/17 00:32 100 T-piece 28 08/11/17 00:24 96.6 89 18 126/85 (99) 96 08/10/17 21:23 92 T-piece 5.00 28 08/10/17 21:23 92 T-piece 28 08/10/17 20:22 96 Trach Collar 08/10/17 20:18 96.2 89 18 150/87 (108) 99 I/O 08/10/17 08/10/17 08/10/17 08/11/17 08/11/17 08/11/17 06:59 14:59 22:59 06:59 14:59 22:59 Intake Total 700 ml 0 ml 666 ml 0 ml Output Total 800 ml 450 ml 780 ml Balance -100 ml -450 ml -114 ml 0 ml Intake Oral 0 ml 0 ml Tube Feeding 580 ml 546 ml Tube Irrigant 120 ml 120 ml Output Urine Total 800 ml 450 ml 780 ml # Bowel Movements 4 1 3 Objective Remarks GENERAL: Elderly female,NAD SKIN: Warm and dry. HEAD: Normocephalic. EYES: No scleral icterus. No injection or drainage. NECK: Supple, trachea midline. No JVD or lymphadenopathy. CARDIOVASCULAR: Regular rate and rhythm without murmurs, gallops, or rubs. RESPIRATORY: Breath sounds equal bilaterally. No accessory muscle use. GASTROINTESTINAL: Abdomen soft, non-tender, nondistended. MUSCULOSKELETAL: No cyanosis, or edema. BACK: Nontender without obvious deformity. No CVA tenderness. A/P Assessment and Plan RF,S/P Trach CVA Pneumonia Pleural effusion PLAN: Cont Abx Aerosol nebs Supplement 02 Trach care TF Chris Rizo MD Aug 11, 2017 18:38
[2017-08-11] MEDS: RESP: ALBUTEROL 2.5 MG/IPRATROPIUM 0.5 MG NEB (PRN) NEB (19:57)
[2017-08-12] VITALS (8 sets, daily range): BP systolic 134–172; BP diastolic 67–93; PULSE 81–98; RESP 18–21; TEMP 96.3–98.7; O2SAT 95–100
[2017-08-12] MEDS: INSULIN ASPART SUPPLEMENTAL SCALE SQ SCH ×4 (01:12→17:35)
[2017-08-12] MEDS: RESP: ALBUTEROL 2.5 MG/IPRATROPIUM 0.5 MG NEB (PRN) NEB (01:50)
[2017-08-12] MEDS: RESP: COLISTIN 150 MG VIAL NEB SCH ×2 (02:03→08:25)
[2017-08-12] MEDS: ARTIFICIAL TEARS OPTH SOLN 15 ML BTL EACH EYE SCH ×3 (06:00→21:34)
[2017-08-12] MEDS: HEPARIN SODIUM - SQ 10,000 UNITS/ML VIAL SQ SCH ×3 (06:22→21:33)
[2017-08-12] MEDS: CALCIUM/VITAMIN D 250 MG/125 U TAB PO SCH ×3 (08:52→18:05)
[2017-08-12] MEDS: ASPIRIN 325 MG TAB DOBHOFF SCH (08:53)
[2017-08-12] MEDS: INSULIN DETEMIR 100 UNITS/ML VIAL SQ SCH ×2 (08:53→21:33)
[2017-08-12] MEDS: CHOLECALCIFEROL (VIT D3) 5000 UNIT CAP PO SCH (08:53)
[2017-08-12] MEDS: SODIUM CHLORIDE 0.9% FLUSH 5 ML FLUSH IV FLUSH SCH ×2 (08:53→21:00)
[2017-08-12] MEDS: LANSOPRAZOLE SOLUTAB 30 MG TAB NG SCH (08:53)
[2017-08-12] MEDS: POLYETHYLENE GLYCOL 17 GM PKG PEG SCH (08:53)
[2017-08-12] MEDS: LISINOPRIL 10 MG TAB PO SCH ×2 (08:53→21:32)
[2017-08-12] MEDS: BENEPROTEIN POWDER 1 PACK G-TUBE SCH ×3 (08:56→18:00)
--- NOTE | 2017-08-12 13:46 | HHI.FPPN ---
Subjective Remarks Status unchanged. Afebrile. Trach and PEG in place. Patient unresponsive to painful stimuli. Objective Vitals Vital Signs Date Time Temp Pulse Resp B/P (MAP) Pulse Ox O2 Delivery O2 Flow Rate FiO2 08/12/17 12:00 98.7 81 19 146/67 (93) 95 08/12/17 08:25 100 T-piece 70 08/12/17 08:25 99 T-piece 08/12/17 08:00 98.7 88 21 148/69 (95) 100 08/12/17 02:06 100 T-piece 6.00 70 08/12/17 00:00 96.3 98 18 172/93 (119) 95 08/11/17 20:30 95 Trach Collar 35 08/11/17 20:01 99 T-piece 40 08/11/17 20:00 96.6 97 18 157/80 (105) 92 08/11/17 16:00 97.8 88 20 153/78 (103) 100 I/O 08/11/17 08/11/17 08/11/17 08/12/17 08/12/17 08/12/17 07:00 15:00 23:00 07:00 15:00 23:00 Intake Total 666 ml 0 ml 850 ml 0 ml Output Total 780 ml 1000 ml 900 ml Balance -114 ml 0 ml -150 ml -900 ml Intake Oral 0 ml 0 ml Tube Feeding 546 ml 850 ml Tube Irrigant 120 ml Output Urine Total 780 ml 1000 ml 900 ml # Bowel Movements 3 Objective Remarks GEN: Appears comfortable. NAD. Trach and PEG. HEAD: Normocephalic. Atraumatic. Right side facial droop. LUNGS: Decreased sounds in b/l bases, breathing spontaneously via T-tube. CARDIOVASCULAR: NRRR, normal S1/S2, no murmur GI/ABD: Soft, non-distended. No grimacing with palpation. Feeding tube insertion point with no redness, no distention NEURO: Not able to track. Flaccid paralysis on the right side. MUSC: SCDs on bilateral lower extremities. Pedal pulses present. SKIN: Sacral pressure ulcer extends from anus to coccyx. Stage II. EXTREMITIES: 1+ pitting edema up to distal tibia of right lower extremity. Trace lower extremity edema of left foot. Edema of right upper extremity improved from prior exam. Other: urinary catheter in place. Procedures ORIF 8/21/17 Intubation 04/30/17 Chest tube placement 05/07/17, removed 05/12/17 Trach placement 05/15/17 PEG tube placement 05/16/17 A/P Assessment and Plan 76 y/o female with HTN, DM admitted for DKA and hip fracture s/p large CVA after ORIF she is currently stable with her current treatment but has had no meaningful functional recovery and do not anticipate any further neurologic recovery from here on. Dr. Harper, Dr. Tran and case management had a long discussion with the daughter on 07/23 and the patient's daughter is still hopeful for full recovery for her mom in spite of her mom's state of health since her CVA. DW the daughter that it is our belief based on her clinical picture that she will not make any sort of meaningful recovery and will remain on the trach and PEG for the rest of her life. DW the daughter due to her status that the patient will likely continue to decline and continue to acquire infections associated with this type of clinical picture including UTI, PNA, and sepsis. DW the daughter to consider the QOL that her mother would have wanted. We recommend that this patient receive Hospice services as we would not anticipate her living longer than 6 months. The daughter does not want to consider this at this time and she is the sole decision maker for this patient. In that case, we will continue to treat the patient aggressively as issues arise and honor the families wishes. A one-hour long family meeting was held (07/26) with patient's daughter Trice, Dr. Harper, Dr. Watts and patient's nurse to discuss patient's poor prognosis. We felt it was important to listen to daughter's perspective and address any questions or concerns she has about her mother's care. Patient goals of care were also discussed. Daughter still wants aggressive treatment. Daughter was informed that from our medical standpoint we do not anticipated any meaningful recovery from her mother's current baseline. Neither do we anticipate for mother to be able to get off PEG tube feeds and trach. However, we will continue to honor daughter's wishes and provide aggressive medical care. ID and pulmonology are actively following. Patient is currently being treated for MDR pseudomonas pna and pulmonology recommended bronchoscopy. Risk and benefits of the procedure were explained and discussed with daughter. The option for her mother not to have the bronchoscopy and to instead continue treatment with antibiotics was also discussed. She is currently unsure about the procedure. She was advised to take time to think about her decision keeping in mind what her mother's wishes would be. Problem List: (1) Chronic respiratory failure ICD Codes: J96.10 - Chronic respiratory failure, unspecified whether with hypoxia or hypercapnia Plan: At this point, respiratory failure is chronic on T-tube Hospital Acquired PNA on 07/21 CXR 08/01 demonstrating bilateral airspace disease and effusions, R>L sputum culture positive for Multi drug resistant pseudomonas Blood cultures from 07/21 no growth (final) Repeat blood cultures from 07/25 no growth final Legionella and S pneumonia urine antigen negative -ID following (Dr. Saleh), recommendations appreciated - Discontinued ceftolozane/ tazobactam - Continue Colistin Neb 75 joseph q8hr (08/06-08/11) for 5 days and then stop - Continue to follow cultures -Pulmonology following (Dr. Rizo), recommended bronchoscopy procedure, daughter refused at this time - CXR 07/29 revealed diffuse bilateral airspace disease with interval worsening on the right, lasix 40mg IV given once for fluid overload - Repeat CXR revealed worsening b/l airspace disease and effusion, slightly worse on the left since 07/29. Right effusion and airspace diases remains larger than the left side. - US chest wall, moderate right pleural effusion. - Consulted IR for US guided thoracentesis, performed on 08/05 removing 1450 cc of clear yellow fluid - Pleural fluid culture from 08/05 with no growth after 72 hours Infection History Pseudomonas hospital-acquired pneumonia - active MSSA bacteremia - resolved Serratia/staph aureus pneumonia - resolved C glabrata UTI - resolved Citrobacter UTI - resolved Serratia/MSSA sputum VAP - resolved Antibiotic History Cefazolin: 04/21-04/22, 05/15-05/16 Cefepime: 04/30-05/04, 05/27-06/03 Ceftrioxone 05/26-05/27 Erythromycin 06/16-06/18, 06/19 Gentamicin 04/21 vancomycin 04/30-05/04, 06/21-06/23 Zosyn 07/21 - 07/25 Azithromycin 07/21 - 07/25 Fluconazole 04/29 - ; 07/26 ceftolozane/ tazobactam 07/25 - 08/06 Colistin nebs q8h 08/06 - 08/11 (2) Pleural effusion ICD Codes: J90 - Pleural effusion, not elsewhere classified Status: Acute Plan: US chest 08/01 demonstrating moderate right pleural effusion IR consulted for thoracentesis performed 08/05 Further plan as above (3) Acute CVA (cerebrovascular accident) ICD Codes: I63.9 - Cerebral infarction, unspecified Status: Chronic Plan: Neurologically stable, no improvement. Overall prognosis is poor. Persistent oxygen requirement See above note about meeting with Daughter on 07/23 and 07/26. Daughter still desires full code and aggressive care -Titrate oxygen via trach to maintain O2 saturation above 92% -Continue tube fees at 45ml/hr 24 hours per day thru peg Tube -Neurosurgery, neurology and palliative care have all been consulted in the past and agree with very poor prognosis with no meaningful neurologic recovery. History and imaging: Patient found minimally responsive with neurological deficits around 0820 04/24. Stat CT of head was ordered, which showed large left MCA infarct. Diffuse edema throughout the left MCA distribution, suggested completed infarct. This was discussed and was not a candidate for intracranial intervention. CT (04/30): Reduction in midline shift to 11mm. Unchanged large left MCA infarction. CT head (05/06) shows: Evolving large left-sided MCA territory infarct with minimally improved [id number] subfalcine shift. No intercurrent hemorrhage or other acute abnormality. Echocardiogram- The left ventricular systolic function is low normal with an estimated ejection fraction in the range of 50-55%. Mild concentric left ventricular hypertrophy. Normal left ventricular size. [id number] mitral valve regurgitation. Carotid Artery US- No hemodynamically significant carotid stenosis (4) UTI (urinary tract infection) ICD Codes: N39.0 - Urinary tract infection, site not specified Status: Resolved Plan: UCx on 07/15 positive for E coli Repeat UCx on 07/20 positive for C. Freundii UCx 07/24 grew only yeast - See above for antibiotic history and coverage (5) Sacral decubitus ulcer ICD Codes: L89.159 - Pressure ulcer of sacral region, unspecified stage Status: Chronic Plan: Patient with Stage II pressure injury over the coccyx -Wound care consult appreciated: 1. Please cleanse coccyx wound every 3 days and PRN for soiling. 2. Apply Calcium Alginate to open wound bed. 3. Secure with bordered gauze every 3 days and PRN for soiling. 4. Continue to turn patient every 2 hours or PRN for comfort. 5. Use one ultrasorb for moisture. Please use flat sheet for repositioning. (6) Anemia ICD Codes: D64.9 - Anemia, unspecified Status: Chronic Plan: s/p 1u of PRBC on 05/28/17. Hgb stable Hemoccult negative on 05/29 - monitor H&H periodically Stable 07/31 (7) Urinary retention ICD Codes: R33.9 - Retention of urine, unspecified Status: Chronic Plan: - Cath last changed 07/15, pt afebrile - Urine output WNL (8) Type 2 diabetes mellitus ICD Codes: E11.9 - Type 2 diabetes mellitus without complications Status: Chronic Plan: - BSBG ranging 120-222 past 24 hours, requiring 5 units total supplemental insulin -continue to monitor BSG -Decreased Levemir to 15 units q 12 due to BG range below goal. -Will continue to monitor -BS goal 140-180 -Discontinued SSI on 07/16 -AccuCheks QShift -Glucerna for PEG tube feedings @ 45 ml/hr -Glucagon 1 mg per PRN protocol for hypoglycemia BS <70mg/dL History Admitted for DKA which has now resolved. Hemoglobin A1C is 12.9. Diabetes Type II is uncontrolled. (9) Hip fracture ICD Codes: S72.009A - Fracture of unspecified part of neck of unspecified femur , initial encounter for closed fracture Status: Resolved Plan: S/P left hip reduction and intramedullary nail fixation on 04-21-17 -c/w Calcium/Vitamin D (10) Hypertension ICD Codes: I10 - Essential (primary) hypertension Status: Chronic Plan: -Antihypertensives to keep SBP<160, as per critical care recs -c/w clonidine 0.1mg Q6h PRN SBP >160 -c/w lisinopril 20mg Q12h po Echocardiogram 04/24 - EF 50 to 55%. Mild concentric LVH. (11) Fluids, Electrolytes, and Nutrition Status: Acute Plan: Fluids: through PEG tube Electrolyte: Continue to monitor periodically, replete as needed Nutrition: continuous Glucerna tube feeds and free water, pump at 45mls/hr, tolerating feeds well, no residual. Protein 1 pack TID. Supplements: calcium TID and vit D3 QD DVT ppx: SCDs/heparin CVA ppx: aspirin 325 mg QD GI ppx: Lansoprazole 30mg qd via NG Problem Qualifiers (1) Chronic respiratory failure: Qualified Codes: J96.11 - Chronic respiratory failure with hypoxia (2) UTI (urinary tract infection): Qualified Codes: N39.0 - Urinary tract infection, site not specified (3) Sacral decubitus ulcer: Qualified Codes: L89.154 - Pressure ulcer of sacral region, stage 4 (4) Type 2 diabetes mellitus: Qualified Codes: E11.9 - Type 2 diabetes mellitus without complications (5) Hip fracture: (6) Hypertension: Qualified Codes: I10 - Essential (primary) hypertension Apple Winslow MD R1 Aug 12, 2017 13:46
--- NOTE | 2017-08-12 18:52 | HHI.PR ---
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 Sleeping Small amount of trach secretions No new complaint no Fever colistin nebs dc'd Objective Vital Signs Vital Signs Date Time Temp Pulse Resp B/P (MAP) Pulse Ox O2 Delivery O2 Flow Rate FiO2 08/12/17 16:00 98.7 85 19 134/73 (93) 100 08/12/17 12:00 98.7 81 19 146/67 (93) 95 08/12/17 08:25 100 T-piece 70 08/12/17 08:25 99 T-piece 08/12/17 08:00 98.7 88 21 148/69 (95) 100 08/12/17 02:06 100 T-piece 6.00 70 08/12/17 00:00 96.3 98 18 172/93 (119) 95 08/11/17 20:30 95 Trach Collar 35 08/11/17 20:01 99 T-piece 40 08/11/17 20:00 96.6 97 18 157/80 (105) 92 I/O 08/11/17 08/11/17 08/11/17 08/12/17 08/12/17 08/12/17 06:59 14:59 22:59 06:59 14:59 22:59 Intake Total 666 ml 0 ml 850 ml 0 ml 0 ml Output Total 780 ml 1000 ml 900 ml 2001 ml Balance -114 ml 0 ml -150 ml -900 ml -2001 ml Intake Oral 0 ml 0 ml 0 ml Tube Feeding 546 ml 850 ml Tube Irrigant 120 ml Output Urine Total 780 ml 1000 ml 900 ml 2000 ml Stool Total 1 ml # Bowel Movements 3 Objective Remarks GENERAL: Elderly female,NAD SKIN: Warm and dry. HEAD: Normocephalic. EYES: No scleral icterus. No injection or drainage. NECK: Supple, trachea midline. No JVD or lymphadenopathy. CARDIOVASCULAR: Regular rate and rhythm without murmurs, gallops, or rubs. RESPIRATORY: Breath sounds equal bilaterally. No accessory muscle use. GASTROINTESTINAL: Abdomen soft, non-tender, nondistended. MUSCULOSKELETAL: No cyanosis, or edema. BACK: Nontender without obvious deformity. No CVA tenderness. A/P Assessment and Plan RF,S/P Trach CVA Pneumonia Pleural effusion PLAN: Aerosol nebs Supplement 02 Trach care TF Chris Rizo MD Aug 12, 2017 18:51
[2017-08-13] VITALS (7 sets, daily range): BP systolic 117–163; BP diastolic 58–78; PULSE 73–89; RESP 16–20; TEMP 96.1–99.4; O2SAT 96–100
[2017-08-13] MEDS: INSULIN ASPART SUPPLEMENTAL SCALE SQ SCH ×4 (00:57→18:00)
[2017-08-13] MEDS: ARTIFICIAL TEARS OPTH SOLN 15 ML BTL EACH EYE SCH ×3 (06:00→20:06)
[2017-08-13] MEDS: HEPARIN SODIUM - SQ 10,000 UNITS/ML VIAL SQ SCH ×3 (06:16→20:06)
[2017-08-13] MEDS: ASPIRIN 325 MG TAB DOBHOFF SCH (08:42)
[2017-08-13] MEDS: LISINOPRIL 10 MG TAB PO SCH ×2 (08:42→20:05)
[2017-08-13] MEDS: CHOLECALCIFEROL (VIT D3) 5000 UNIT CAP PO SCH (08:42)
[2017-08-13] MEDS: SODIUM CHLORIDE 0.9% FLUSH 5 ML FLUSH IV FLUSH SCH ×2 (08:43→20:06)
[2017-08-13] MEDS: LANSOPRAZOLE SOLUTAB 30 MG TAB NG SCH (08:43)
[2017-08-13] MEDS: POLYETHYLENE GLYCOL 17 GM PKG PEG SCH (08:43)
[2017-08-13] MEDS: INSULIN DETEMIR 100 UNITS/ML VIAL SQ SCH ×2 (08:43→21:27)
[2017-08-13] MEDS: CALCIUM/VITAMIN D 250 MG/125 U TAB PO SCH ×3 (08:43→18:00)
[2017-08-13] MEDS: BENEPROTEIN POWDER 1 PACK G-TUBE SCH ×3 (08:43→18:00)
--- NOTE | 2017-08-13 10:15 | HHI.FPPN ---
Subjective Remarks No acute events overnight. Status unchanged. Trach and PEG in place. Afebrile. VSS. (Apple Winslow MD R1) Objective Vitals Vital Signs Date Time Temp Pulse Resp B/P (MAP) Pulse Ox O2 Delivery O2 Flow Rate FiO2 08/13/17 08:00 99.4 89 16 163/78 (106) 98 08/13/17 00:00 97.0 86 18 140/69 (92) 97 08/12/17 22:28 98 T-piece 6.00 40 08/12/17 20:00 96.9 94 18 146/74 (98) 98 08/12/17 16:00 98.7 85 19 134/73 (93) 100 08/12/17 12:00 98.7 81 19 146/67 (93) 95 I/O 08/12/17 08/12/17 08/12/17 08/13/17 08/13/17 08/13/17 07:00 15:00 23:00 07:00 15:00 23:00 Intake Total 850 ml 0 ml 0 ml 118 ml Output Total 1000 ml 900 ml 2001 ml 1750 ml Balance -150 ml -900 ml -2001 ml -1632 ml Intake Oral 0 ml 0 ml Tube Feeding 850 ml 118 ml Output Urine Total 1000 ml 900 ml 2000 ml 1750 ml Stool Total 1 ml (Apple Winslow MD R1) Objective Remarks GEN: Appears comfortable. NAD. Trach and PEG. HEAD: Normocephalic. Atraumatic. Right side facial droop. LUNGS: Decreased sounds in b/l bases, breathing spontaneously via T-tube. CARDIOVASCULAR: NRRR, normal S1/S2, no murmur GI/ABD: Soft, non-distended. No grimacing with palpation. Feeding tube insertion point with no redness, no distention NEURO: Not able to track. Flaccid paralysis on the right side. MUSC: SCDs on bilateral lower extremities. Pedal pulses present. SKIN: Sacral pressure ulcer extends from anus to coccyx. Stage II. EXTREMITIES: 1+ pitting edema up to distal tibia of right lower extremity. Trace lower extremity edema of left foot. Edema of right upper extremity improved from prior exam. Other: urinary catheter in place. Procedures ORIF 04/21/17 Intubation 04/30/17 Chest tube placement 05/07/17, removed 05/12/17 Trach placement 05/15/17 PEG tube placement 05/16/17 (Apple Winslow MD R1) A/P Assessment and Plan 76 y/o female with HTN, DM admitted for DKA and hip fracture s/p large CVA after ORIF she is currently stable with her current treatment but has had no meaningful functional recovery and do not anticipate any further neurologic recovery from here on. Dr. Harper, Dr. Tran and case management had a long discussion with the daughter on 07/23 and the patient's daughter is still hopeful for full recovery for her mom in spite of her mom's state of health since her CVA. DW the daughter that it is our belief based on her clinical picture that she will not make any sort of meaningful recovery and will remain on the trach and PEG for the rest of her life. DW the daughter due to her status that the patient will likely continue to decline and continue to acquire infections associated with this type of clinical picture including UTI, PNA, and sepsis. DW the daughter to consider the QOL that her mother would have wanted. We recommend that this patient receive Hospice services as we would not anticipate her living longer than 6 months. The daughter does not want to consider this at this time and she is the sole decision maker for this patient. In that case, we will continue to treat the patient aggressively as issues arise and honor the families wishes. A one-hour long family meeting was held (07/26) with patient's daughter Trice, Dr. Harper, Dr. Watts and patient's nurse to discuss patient's poor prognosis. We felt it was important to listen to daughter's perspective and address any questions or concerns she has about her mother's care. Patient goals of care were also discussed. Daughter still wants aggressive treatment. Daughter was informed that from our medical standpoint we do not anticipated any meaningful recovery from her mother's current baseline. Neither do we anticipate for mother to be able to get off PEG tube feeds and trach. However, we will continue to honor daughter's wishes and provide aggressive medical care. ID and pulmonology are actively following. Patient is currently being treated for MDR pseudomonas pna and pulmonology recommended bronchoscopy. Risk and benefits of the procedure were explained and discussed with daughter. The option for her mother not to have the bronchoscopy and to instead continue treatment with antibiotics was also discussed. She is currently unsure about the procedure. She was advised to take time to think about her decision keeping in mind what her mother's wishes would be. (Apple Winslow MD R1) Attending Attestation Patient seen and examined. Case reviewed and discussed with the resident team. Agree with plan of care as discussed with me and documented in the resident note. (Adali Meade MD) Problem List: (1) Chronic respiratory failure ICD Codes: J96.10 - Chronic respiratory failure, unspecified whether with hypoxia or hypercapnia Plan: At this point, respiratory failure is chronic on T-tube Hospital Acquired PNA on 07/21 CXR 08/01 demonstrating bilateral airspace disease and effusions, R>L sputum culture positive for Multi drug resistant pseudomonas Blood cultures from 07/21 no growth (final) Repeat blood cultures from 07/25 no growth final Legionella and S pneumonia urine antigen negative -ID following (Dr. Saleh), recommendations appreciated - Completed ceftolozane/ tazobactam (07/25-08/06) - Completed Colistin Neb 75 joseph q8hr (08/06-08/11) - Blood cultures 07/25 NGTD -Pulmonology following (Dr. Rizo), recommended bronchoscopy procedure, daughter refused at this time - CXR 07/29 revealed diffuse bilateral airspace disease with interval worsening on the right, lasix 40mg IV given once for fluid overload - Repeat CXR revealed worsening b/l airspace disease and effusion, slightly worse on the left since 07/29. Right effusion and airspace diases remains larger than the left side. - US chest wall, moderate right pleural effusion. - Consulted IR for US guided thoracentesis, performed on 08/05 removing 1450 cc of clear yellow fluid - Pleural fluid culture from 08/05 with no growth after 72 hours Infection History Pseudomonas hospital-acquired pneumonia - active MSSA bacteremia - resolved Serratia/staph aureus pneumonia - resolved C glabrata UTI - resolved Citrobacter UTI - resolved Serratia/MSSA sputum VAP - resolved Antibiotic History Cefazolin: 04/21-04/22, 05/15-05/16 Cefepime: 04/30-05/04, 05/27-06/03 Ceftrioxone 05/26-05/27 Erythromycin 06/16-06/18, 06/19 Gentamicin 04/21 vancomycin 04/30-05/04, 06/21-06/23 Zosyn 07/21 - 07/25 Azithromycin 07/21 - 07/25 Fluconazole 04/29 - ; 07/26 ceftolozane/ tazobactam 07/25 - 08/06 Colistin nebs q8h 08/06 - 08/11 (2) Pleural effusion ICD Codes: J90 - Pleural effusion, not elsewhere classified Status: Acute Plan: US chest 08/01 demonstrating moderate right pleural effusion IR consulted for thoracentesis performed 08/05 Further plan as above (3) Acute CVA (cerebrovascular accident) ICD Codes: I63.9 - Cerebral infarction, unspecified Status: Chronic Plan: Neurologically stable, no improvement. Overall prognosis is poor. Persistent oxygen requirement See above note about meeting with Daughter on 07/23 and 07/26. Daughter still desires full code and aggressive care -Titrate oxygen via trach to maintain O2 saturation above 92% -Continue tube fees at 45ml/hr 24 hours per day thru peg Tube -Neurosurgery, neurology and palliative care have all been consulted in the past and agree with very poor prognosis with no meaningful neurologic recovery. History and imaging: Patient found minimally responsive with neurological deficits around 0820 04/24. Stat CT of head was ordered, which showed large left MCA infarct. Diffuse edema throughout the left MCA distribution, suggested completed infarct. This was discussed and was not a candidate for intracranial intervention. CT (04/30): Reduction in midline shift to 11mm. Unchanged large left MCA infarction. CT head (05/06) shows: Evolving large left-sided MCA territory infarct with minimally improved [id number]-hxcde subfalcine shift. No intercurrent hemorrhage or other acute abnormality. Echocardiogram- The left ventricular systolic function is low normal with an estimated ejection fraction in the range of 50-55%. Mild concentric left ventricular hypertrophy. Normal left ventricular size. [id number] mitral valve regurgitation. Carotid Artery US- No hemodynamically significant carotid stenosis (4) UTI (urinary tract infection) ICD Codes: N39.0 - Urinary tract infection, site not specified Status: Resolved Plan: UCx on 07/15 positive for E coli Repeat UCx on 07/20 positive for C. Freundii UCx 07/24 grew only yeast - See above for antibiotic history and coverage (5) Sacral decubitus ulcer ICD Codes: L89.159 - Pressure ulcer of sacral region, unspecified stage Status: Chronic Plan: Patient with Stage II pressure injury over the coccyx -Wound care consult appreciated: 1. Please cleanse coccyx wound every 3 days and PRN for soiling. 2. Apply Calcium Alginate to open wound bed. 3. Secure with bordered gauze every 3 days and PRN for soiling. 4. Continue to turn patient every 2 hours or PRN for comfort. 5. Use one ultrasorb for moisture. Please use flat sheet for repositioning. (6) Anemia ICD Codes: D64.9 - Anemia, unspecified Status: Chronic Plan: s/p 1u of PRBC on 05/28/17. Hgb stable Hemoccult negative on 05/29 - monitor H&H periodically Stable 07/31 (7) Urinary retention ICD Codes: R33.9 - Retention of urine, unspecified Status: Chronic Plan: - Cath last changed 07/15, pt afebrile - Urine output WNL (8) Type 2 diabetes mellitus ICD Codes: E11.9 - Type 2 diabetes mellitus without complications Status: Chronic Plan: - BSBG ranging 120-222 past 24 hours, requiring 5 units total supplemental insulin -continue to monitor BSG -Decreased Levemir to 15 units q 12 due to BG range below goal. -Will continue to monitor -BS goal 140-180 -Discontinued SSI on 07/16 -AccuCheks QShift -Glucerna for PEG tube feedings @ 45 ml/hr -Glucagon 1 mg per PRN protocol for hypoglycemia BS <70mg/dL History Admitted for DKA which has now resolved. Hemoglobin A1C is 12.9. Diabetes Type II is uncontrolled. (9) Hip fracture ICD Codes: S72.009A - Fracture of unspecified part of neck of unspecified femur , initial encounter for closed fracture Status: Resolved Plan: S/P left hip reduction and intramedullary nail fixation on 04-21-17 -c/w Calcium/Vitamin D (10) Hypertension ICD Codes: I10 - Essential (primary) hypertension Status: Chronic Plan: -Antihypertensives to keep SBP<160, as per critical care recs -c/w clonidine 0.1mg Q6h PRN SBP >160 -c/w lisinopril 20mg Q12h po Echocardiogram 04/24 - EF 50 to 55%. Mild concentric LVH. (11) Fluids, Electrolytes, and Nutrition Status: Acute Plan: Fluids: through PEG tube Electrolyte: Continue to monitor periodically, replete as needed Nutrition: continuous Glucerna tube feeds and free water, pump at 45mls/hr, tolerating feeds well, no residual. Protein 1 pack TID. Supplements: calcium TID and vit D3 QD DVT ppx: SCDs/heparin CVA ppx: aspirin 325 mg QD GI ppx: Lansoprazole 30mg qd via NG (Apple Winslow MD R1) Problem Qualifiers (1) Chronic respiratory failure: Qualified Codes: J96.11 - Chronic respiratory failure with hypoxia (2) UTI (urinary tract infection): Qualified Codes: N39.0 - Urinary tract infection, site not specified (3) Sacral decubitus ulcer: Qualified Codes: L89.154 - Pressure ulcer of sacral region, stage 4 (4) Type 2 diabetes mellitus: Qualified Codes: E11.9 - Type 2 diabetes mellitus without complications (5) Hip fracture: (6) Hypertension: Qualified Codes: I10 - Essential (primary) hypertension Apple Winslow MD R1 Aug 13, 2017 10:15 Adali Meade MD Aug 13, 2017 12:34
--- NOTE | 2017-08-13 18:36 | HHI.PR ---
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 Sleeping Small amount of trach secretions No new complaint no Fever Objective Vital Signs Vital Signs Date Time Temp Pulse Resp B/P (MAP) Pulse Ox O2 Delivery O2 Flow Rate FiO2 08/13/17 18:04 100 T-piece 6.00 28 08/13/17 16:00 96.1 79 19 127/60 (82) 100 08/13/17 12:00 99.1 73 16 117/58 (77) 96 08/13/17 10:53 97 T-piece 6.00 35 08/13/17 08:00 99.4 89 16 163/78 (106) 98 08/13/17 00:00 97.0 86 18 140/69 (92) 97 08/12/17 22:28 98 T-piece 6.00 40 08/12/17 20:00 96.9 94 18 146/74 (98) 98 I/O 08/12/17 08/12/17 08/12/17 08/13/17 08/13/17 08/13/17 07:00 15:00 23:00 07:00 15:00 23:00 Intake Total 850 ml 0 ml 0 ml 118 ml 425 ml Output Total 1000 ml 900 ml 2001 ml 1750 ml Balance -150 ml -900 ml -2001 ml -1632 ml 425 ml Intake Oral 0 ml 0 ml Tube Feeding 850 ml 118 ml 425 ml Output Urine Total 1000 ml 900 ml 2000 ml 1750 ml Stool Total 1 ml Objective Remarks GENERAL: Elderly female,NAD SKIN: Warm and dry. HEAD: Normocephalic. EYES: No scleral icterus. No injection or drainage. NECK: Supple, trachea midline. No JVD or lymphadenopathy. CARDIOVASCULAR: Regular rate and rhythm without murmurs, gallops, or rubs. RESPIRATORY: Breath sounds equal bilaterally. No accessory muscle use. GASTROINTESTINAL: Abdomen soft, non-tender, nondistended. MUSCULOSKELETAL: No cyanosis, or edema. BACK: Nontender without obvious deformity. No CVA tenderness. A/P Assessment and Plan RF,S/P Trach CVA Pneumonia Pleural effusion PLAN: Aerosol nebs Supplement 02 Trach care TF Stable pulm Will see her intermittantaly Available prChris Barrios MD Aug 13, 2017 18:36
[2017-08-14] VITALS (9 sets, daily range): BP systolic 127–158; BP diastolic 59–74; PULSE 72–85; RESP 17–20; TEMP 95.2–97.3; O2SAT 93–98
[2017-08-14] MEDS: INSULIN ASPART SUPPLEMENTAL SCALE SQ SCH ×4 (00:46→18:00)
[2017-08-14] MEDS: HEPARIN SODIUM - SQ 10,000 UNITS/ML VIAL SQ SCH ×3 (05:00→22:21)
[2017-08-14] MEDS: ARTIFICIAL TEARS OPTH SOLN 15 ML BTL EACH EYE SCH ×3 (05:00→22:21)
[2017-08-14] MEDS: SODIUM CHLORIDE 0.9% FLUSH 5 ML FLUSH IV FLUSH SCH ×2 (07:52→22:20)
[2017-08-14] MEDS: POLYETHYLENE GLYCOL 17 GM PKG PEG SCH (08:38)
[2017-08-14] MEDS: CHOLECALCIFEROL (VIT D3) 5000 UNIT CAP PO SCH (08:39)
[2017-08-14] MEDS: LISINOPRIL 10 MG TAB PO SCH ×2 (08:39→22:20)
[2017-08-14] MEDS: LANSOPRAZOLE SOLUTAB 30 MG TAB NG SCH (08:39)
[2017-08-14] MEDS: CALCIUM/VITAMIN D 250 MG/125 U TAB PO SCH ×3 (08:39→18:00)
[2017-08-14] MEDS: ASPIRIN 325 MG TAB DOBHOFF SCH (08:39)
[2017-08-14] MEDS: INSULIN DETEMIR 100 UNITS/ML VIAL SQ SCH ×2 (08:39→22:22)
[2017-08-14] MEDS: BENEPROTEIN POWDER 1 PACK G-TUBE SCH ×3 (08:40→17:52)
--- NOTE | 2017-08-14 09:25 | HHI.FPPN ---
Subjective Remarks Pt lying in bed. Status unchanged. Unresponsive to voice and touch. Afebrile. VSS. Trach, PEG, and catheter in place. Objective Vitals Vital Signs Date Time Temp Pulse Resp B/P (MAP) Pulse Ox O2 Delivery O2 Flow Rate FiO2 08/14/17 08:00 95.6 85 20 142/67 (92) 96 08/14/17 01:05 96 T-piece 6.00 08/14/17 00:32 96.0 81 17 146/73 (97) 97 08/13/17 20:36 97.8 84 20 141/67 (91) 96 08/13/17 20:02 96 T-Piece 6.00 35 Humidified 08/13/17 18:04 100 T-piece 6.00 28 08/13/17 16:00 96.1 79 19 127/60 (82) 100 08/13/17 12:00 99.1 73 16 117/58 (77) 96 08/13/17 10:53 97 T-piece 6.00 35 I/O 08/13/17 08/13/17 08/13/17 08/14/17 08/14/17 08/14/17 07:00 15:00 23:00 07:00 15:00 23:00 Intake Total 118 ml 513 ml 477 ml Output Total 1750 ml 800 ml 700 ml Balance -1632 ml -287 ml -223 ml Intake Oral 0 ml Tube Feeding 118 ml 513 ml 477 ml Output Urine Total 1750 ml 800 ml 700 ml # Bowel Movements 2 1 Objective Remarks GEN: Appears comfortable. NAD. Trach and PEG. HEAD: Normocephalic. Atraumatic. Right side facial droop. LUNGS: Decreased sounds in b/l bases, breathing spontaneously via T-tube. CARDIOVASCULAR: NRRR, normal S1/S2, no murmur GI/ABD: Soft, non-distended. No grimacing with palpation. Feeding tube insertion point with no redness, no distention NEURO: Not able to track. Flaccid paralysis on the right side. MUSC: SCDs on bilateral lower extremities. Pedal pulses present. SKIN: Sacral pressure ulcer extends from anus to coccyx. Stage II. EXTREMITIES: 1+ pitting edema up to distal tibia of right lower extremity. Trace lower extremity edema of left foot. Edema of right upper extremity improved from prior exam. Other: urinary catheter in place. Procedures ORIF 04/21/17 Intubation 04/30/17 Chest tube placement 05/07/17, removed 05/12/17 Trach placement 05/15/17 PEG tube placement 05/16/17 A/P Assessment and Plan 76 y/o female with HTN, DM admitted for DKA and hip fracture s/p large CVA after ORIF she is currently stable with her current treatment but has had no meaningful functional recovery and do not anticipate any further neurologic recovery from here on. Dr. Harper, Dr. Tran and case management had a long discussion with the daughter on 07/23 and the patient's daughter is still hopeful for full recovery for her mom in spite of her mom's state of health since her CVA. DW the daughter that it is our belief based on her clinical picture that she will not make any sort of meaningful recovery and will remain on the trach and PEG for the rest of her life. DW the daughter due to her status that the patient will likely continue to decline and continue to acquire infections associated with this type of clinical picture including UTI, PNA, and sepsis. DW the daughter to consider the QOL that her mother would have wanted. We recommend that this patient receive Hospice services as we would not anticipate her living longer than 6 months. The daughter does not want to consider this at this time and she is the sole decision maker for this patient. In that case, we will continue to treat the patient aggressively as issues arise and honor the families wishes. A one-hour long family meeting was held (07/26) with patient's daughter Trice, Dr. Harper, Dr. Watts and patient's nurse to discuss patient's poor prognosis. We felt it was important to listen to daughter's perspective and address any questions or concerns she has about her mother's care. Patient goals of care were also discussed. Daughter still wants aggressive treatment. Daughter was informed that from our medical standpoint we do not anticipated any meaningful recovery from her mother's current baseline. Neither do we anticipate for mother to be able to get off PEG tube feeds and trach. However, we will continue to honor daughter's wishes and provide aggressive medical care. ID and pulmonology are actively following. Patient is currently being treated for MDR pseudomonas pna and pulmonology recommended bronchoscopy. Risk and benefits of the procedure were explained and discussed with daughter. The option for her mother not to have the bronchoscopy and to instead continue treatment with antibiotics was also discussed. She is currently unsure about the procedure. She was advised to take time to think about her decision keeping in mind what her mother's wishes would be. 08/02- Daughter at bedside. I had a long discussion with the daughter. Discussed with her about patient's unchanged status. She agreed to thoracentesis done on 08/05. She still wants aggressive care for her mother. Problem List: (1) Chronic respiratory failure ICD Codes: J96.10 - Chronic respiratory failure, unspecified whether with hypoxia or hypercapnia Plan: At this point, respiratory failure is chronic on T-tube Hospital Acquired PNA on 07/21 CXR 08/01 demonstrating bilateral airspace disease and effusions, R>L sputum culture positive for Multi drug resistant pseudomonas Blood cultures from 07/21 no growth (final) Repeat blood cultures from 07/25 no growth final Legionella and S pneumonia urine antigen negative -ID following (Dr. Saleh), recommendations appreciated - Completed ceftolozane/ tazobactam (07/25-08/06) - Completed Colistin Neb 75 joseph q8hr (08/06-08/11) - Blood cultures 07/25 NGTD -Pulmonology following (Dr. Rizo), recommended bronchoscopy procedure, daughter refused at this time - CXR 07/29 revealed diffuse bilateral airspace disease with interval worsening on the right, lasix 40mg IV given once for fluid overload - Repeat CXR revealed worsening b/l airspace disease and effusion, slightly worse on the left since 07/29. Right effusion and airspace diases remains larger than the left side. - US chest wall, moderate right pleural effusion. - Consulted IR for US guided thoracentesis, performed on 08/05 removing 1450 cc of clear yellow fluid - Pleural fluid culture from 08/05 with no growth after 72 hours Infection History Pseudomonas hospital-acquired pneumonia - active MSSA bacteremia - resolved Serratia/staph aureus pneumonia - resolved C glabrata UTI - resolved Citrobacter UTI - resolved Serratia/MSSA sputum VAP - resolved Antibiotic History Cefazolin: 04/21-04/22, 05/15-05/16 Cefepime: 04/30-05/04, 05/27-06/03 Ceftrioxone 05/26-05/27 Erythromycin 06/16-06/18, 06/19 Gentamicin 04/21 vancomycin 04/30-05/04, 06/21-06/23 Zosyn 07/21 - 07/25 Azithromycin 07/21 - 07/25 Fluconazole 04/29 - ; 07/26 ceftolozane/ tazobactam 07/25 - 08/06 Colistin nebs q8h 08/06 - 08/11 (2) Pleural effusion ICD Codes: J90 - Pleural effusion, not elsewhere classified Status: Acute Plan: US chest 08/01 demonstrating moderate right pleural effusion IR consulted for thoracentesis performed 08/05 Further plan as above (3) Acute CVA (cerebrovascular accident) ICD Codes: I63.9 - Cerebral infarction, unspecified Status: Chronic Plan: Neurologically stable, no improvement. Overall prognosis is poor. Persistent oxygen requirement See above note about meeting with Daughter on 07/23 and 07/26. Daughter still desires full code and aggressive care -Titrate oxygen via trach to maintain O2 saturation above 92% -Continue tube fees at 45ml/hr 24 hours per day thru peg Tube -Neurosurgery, neurology and palliative care have all been consulted in the past and agree with very poor prognosis with no meaningful neurologic recovery. History and imaging: Patient found minimally responsive with neurological deficits around 0820 04/24. Stat CT of head was ordered, which showed large left MCA infarct. Diffuse edema throughout the left MCA distribution, suggested completed infarct. This was discussed and was not a candidate for intracranial intervention. CT (04/30): Reduction in midline shift to 11mm. Unchanged large left MCA infarction. CT head (05/06) shows: Evolving large left-sided MCA territory infarct with minimally improved yjjk-hq-[id number] subfalcine shift. No intercurrent hemorrhage or other acute abnormality. Echocardiogram- The left ventricular systolic function is low normal with an estimated ejection fraction in the range of 50-55%. Mild concentric left ventricular hypertrophy. Normal left ventricular size. Skosx-nq-khqv mitral valve regurgitation. Carotid Artery US- No hemodynamically significant carotid stenosis (4) UTI (urinary tract infection) ICD Codes: N39.0 - Urinary tract infection, site not specified Status: Resolved Plan: UCx on 07/15 positive for E coli Repeat UCx on 07/20 positive for C. Freundii UCx 07/24 grew only yeast - See above for antibiotic history and coverage (5) Sacral decubitus ulcer ICD Codes: L89.159 - Pressure ulcer of sacral region, unspecified stage Status: Chronic Plan: Patient with Stage II pressure injury over the coccyx -Wound care consult appreciated: 1. Please cleanse coccyx wound every 3 days and PRN for soiling. 2. Apply Calcium Alginate to open wound bed. 3. Secure with bordered gauze every 3 days and PRN for soiling. 4. Continue to turn patient every 2 hours or PRN for comfort. 5. Use one ultrasorb for moisture. Please use flat sheet for repositioning. (6) Anemia ICD Codes: D64.9 - Anemia, unspecified Status: Chronic Plan: s/p 1u of PRBC on 05/28/17. Hgb stable Hemoccult negative on 05/29 - monitor H&H periodically Stable 07/31 (7) Urinary retention ICD Codes: R33.9 - Retention of urine, unspecified Status: Chronic Plan: - Cath last changed 07/15, pt afebrile - Urine output WNL (8) Type 2 diabetes mellitus ICD Codes: E11.9 - Type 2 diabetes mellitus without complications Status: Chronic Plan: - BSBG ranging 120-222 past 24 hours, requiring 5 units total supplemental insulin -continue to monitor BSG -Decreased Levemir to 15 units q 12 due to BG range below goal. -Will continue to monitor -BS goal 140-180 -Discontinued SSI on 07/16 -AccuCheks QShift -Glucerna for PEG tube feedings @ 45 ml/hr -Glucagon 1 mg per PRN protocol for hypoglycemia BS <70mg/dL History Admitted for DKA which has now resolved. Hemoglobin A1C is 12.9. Diabetes Type II is uncontrolled. (9) Hip fracture ICD Codes: S72.009A - Fracture of unspecified part of neck of unspecified femur , initial encounter for closed fracture Status: Resolved Plan: S/P left hip reduction and intramedullary nail fixation on 04-21-17 -c/w Calcium/Vitamin D (10) Hypertension ICD Codes: I10 - Essential (primary) hypertension Status: Chronic Plan: -Antihypertensives to keep SBP<160, as per critical care recs -c/w clonidine 0.1mg Q6h PRN SBP >160 -c/w lisinopril 20mg Q12h po Echocardiogram 04/24 - EF 50 to 55%. Mild concentric LVH. (11) Fluids, Electrolytes, and Nutrition Status: Acute Plan: Fluids: through PEG tube Electrolyte: Continue to monitor periodically, replete as needed Nutrition: continuous Glucerna tube feeds and free water, pump at 45mls/hr, tolerating feeds well, no residual. Protein 1 pack TID. Supplements: calcium TID and vit D3 QD DVT ppx: SCDs/heparin CVA ppx: aspirin 325 mg QD GI ppx: Lansoprazole 30mg qd via NG Problem Qualifiers (1) Chronic respiratory failure: Qualified Codes: J96.11 - Chronic respiratory failure with hypoxia (2) UTI (urinary tract infection): Qualified Codes: N39.0 - Urinary tract infection, site not specified (3) Sacral decubitus ulcer: Qualified Codes: L89.154 - Pressure ulcer of sacral region, stage 4 (4) Type 2 diabetes mellitus: Qualified Codes: E11.9 - Type 2 diabetes mellitus without complications (5) Hip fracture: (6) Hypertension: Qualified Codes: I10 - Essential (primary) hypertension Apple Winslow MD R1 Aug 14, 2017 09:25
[2017-08-15] VITALS (7 sets, daily range): BP systolic 134–170; BP diastolic 65–84; PULSE 77–94; RESP 18–21; TEMP 96.4–98.3; O2SAT 97–100
[2017-08-15] MEDS: INSULIN ASPART SUPPLEMENTAL SCALE SQ SCH ×4 (01:41→18:00)
[2017-08-15] MEDS: HEPARIN SODIUM - SQ 10,000 UNITS/ML VIAL SQ SCH ×3 (05:53→22:34)
[2017-08-15] MEDS: ARTIFICIAL TEARS OPTH SOLN 15 ML BTL EACH EYE SCH ×3 (05:53→22:33)
[2017-08-15] MEDS: CALCIUM/VITAMIN D 250 MG/125 U TAB PO SCH ×3 (09:00→18:00)
[2017-08-15] MEDS: SODIUM CHLORIDE 0.9% FLUSH 5 ML FLUSH IV FLUSH SCH ×2 (09:00→22:33)
[2017-08-15] MEDS: CHOLECALCIFEROL (VIT D3) 5000 UNIT CAP PO SCH (09:00)
[2017-08-15] MEDS: INSULIN DETEMIR 100 UNITS/ML VIAL SQ SCH ×2 (09:00→22:54)
[2017-08-15] MEDS: ASPIRIN 325 MG TAB DOBHOFF SCH (09:00)
[2017-08-15] MEDS: LANSOPRAZOLE SOLUTAB 30 MG TAB NG SCH (09:00)
[2017-08-15] MEDS: POLYETHYLENE GLYCOL 17 GM PKG PEG SCH (09:00)
[2017-08-15] MEDS: LISINOPRIL 10 MG TAB PO SCH ×2 (09:00→22:33)
[2017-08-15] MEDS: BENEPROTEIN POWDER 1 PACK G-TUBE SCH ×3 (09:00→18:00)
--- NOTE | 2017-08-15 12:51 | HHI.FPPN ---
Subjective Remarks No acute events overnight. Status unchanged. PEG and Trach. Afebrile. VSS. Objective Vitals Vital Signs Date Time Temp Pulse Resp B/P (MAP) Pulse Ox O2 Delivery O2 Flow Rate FiO2 08/15/17 12:00 98.3 87 20 134/84 (101) 100 08/15/17 10:25 97 T-piece 6.00 35 08/15/17 08:00 96.4 77 20 136/65 (88) 98 08/15/17 05:41 97 T-piece 6.00 35 08/15/17 00:39 97.3 94 21 142/71 (94) 97 08/14/17 22:20 94 Trach Collar 6.00 28 08/14/17 20:00 95.4 84 17 158/74 (102) 96 08/14/17 17:36 93 T-piece 6.00 35 08/14/17 17:35 93 T-piece 6.00 35 08/14/17 16:00 97.3 72 18 127/59 (81) 98 I/O 08/14/17 08/14/17 08/14/17 08/15/17 08/15/17 08/15/17 07:00 15:00 23:00 07:00 15:00 23:00 Intake Total 477 ml 0 ml 540 ml Output Total 700 ml 550 ml 800 ml Balance -223 ml -550 ml -260 ml Intake Oral 0 ml Tube Feeding 477 ml 540 ml Output Urine Total 700 ml 550 ml 800 ml # Bowel Movements 1 2 1 Objective Remarks GEN: Appears comfortable. NAD. Trach and PEG. HEAD: Normocephalic. Atraumatic. Right side facial droop. LUNGS: Decreased sounds in b/l bases, breathing spontaneously via T-tube. CARDIOVASCULAR: NRRR, normal S1/S2, no murmur GI/ABD: Soft, non-distended. No grimacing with palpation. Feeding tube insertion point with no redness, no distention NEURO: Not able to track. Flaccid paralysis on the right side. MUSC: SCDs on bilateral lower extremities. Pedal pulses present. SKIN: Sacral pressure ulcer extends from anus to coccyx. Stage II. EXTREMITIES: 1+ pitting edema up to distal tibia of right lower extremity. Trace lower extremity edema of left foot. Edema of right upper extremity improved from prior exam. Other: urinary catheter in place. Procedures ORIF 04/21/17 Intubation 04/30/17 Chest tube placement 05/07/17, removed 05/12/17 Trach placement 05/15/17 PEG tube placement 05/16/17 A/P Assessment and Plan 76 y/o female with HTN, DM admitted for DKA and hip fracture s/p large CVA after ORIF she is currently stable with her current treatment but has had no meaningful functional recovery and do not anticipate any further neurologic recovery from here on. Dr. Harper, Dr. Tran and case management had a long discussion with the daughter on 07/23 and the patient's daughter is still hopeful for full recovery for her mom in spite of her mom's state of health since her CVA. DW the daughter that it is our belief based on her clinical picture that she will not make any sort of meaningful recovery and will remain on the trach and PEG for the rest of her life. DW the daughter due to her status that the patient will likely continue to decline and continue to acquire infections associated with this type of clinical picture including UTI, PNA, and sepsis. DW the daughter to consider the QOL that her mother would have wanted. We recommend that this patient receive Hospice services as we would not anticipate her living longer than 6 months. The daughter does not want to consider this at this time and she is the sole decision maker for this patient. In that case, we will continue to treat the patient aggressively as issues arise and honor the families wishes. A one-hour long family meeting was held (07/26) with patient's daughter Trice, Dr. Harper, Dr. Watts and patient's nurse to discuss patient's poor prognosis. We felt it was important to listen to daughter's perspective and address any questions or concerns she has about her mother's care. Patient goals of care were also discussed. Daughter still wants aggressive treatment. Daughter was informed that from our medical standpoint we do not anticipated any meaningful recovery from her mother's current baseline. Neither do we anticipate for mother to be able to get off PEG tube feeds and trach. However, we will continue to honor daughter's wishes and provide aggressive medical care. ID and pulmonology are actively following. Patient is currently being treated for MDR pseudomonas pna and pulmonology recommended bronchoscopy. Risk and benefits of the procedure were explained and discussed with daughter. The option for her mother not to have the bronchoscopy and to instead continue treatment with antibiotics was also discussed. She is currently unsure about the procedure. She was advised to take time to think about her decision keeping in mind what her mother's wishes would be. 08/02- Daughter at bedside. I had a long discussion with the daughter. Discussed with her about patient's unchanged status. She agreed to thoracentesis done on 08/05. She still wants aggressive care for her mother. Problem List: (1) Chronic respiratory failure ICD Codes: J96.10 - Chronic respiratory failure, unspecified whether with hypoxia or hypercapnia Plan: At this point, respiratory failure is chronic on T-tube Hospital Acquired PNA on 07/21 CXR 08/01 demonstrating bilateral airspace disease and effusions, R>L sputum culture positive for Multi drug resistant pseudomonas Blood cultures from 07/21 no growth (final) Repeat blood cultures from 07/25 no growth final Legionella and S pneumonia urine antigen negative -ID following (Dr. Saleh), recommendations appreciated - Completed ceftolozane/ tazobactam (07/25-08/06) - Completed Colistin Neb 75 joseph q8hr (08/06-08/11) - Blood cultures 07/25 NGTD -Pulmonology following (Dr. Rizo), recommended bronchoscopy procedure, daughter refused at this time - CXR 07/29 revealed diffuse bilateral airspace disease with interval worsening on the right, lasix 40mg IV given once for fluid overload - Repeat CXR revealed worsening b/l airspace disease and effusion, slightly worse on the left since 07/29. Right effusion and airspace diases remains larger than the left side. - US chest wall, moderate right pleural effusion. - Consulted IR for US guided thoracentesis, performed on 08/05 removing 1450 cc of clear yellow fluid - Pleural fluid culture from 08/05 with no growth after 72 hours Infection History Pseudomonas hospital-acquired pneumonia - active MSSA bacteremia - resolved Serratia/staph aureus pneumonia - resolved C glabrata UTI - resolved Citrobacter UTI - resolved Serratia/MSSA sputum VAP - resolved Antibiotic History Cefazolin: 04/21-04/22, 05/15-05/16 Cefepime: 04/30-05/04, 05/27-06/03 Ceftrioxone 05/26-05/27 Erythromycin 06/16-06/18, 06/19 Gentamicin 04/21 vancomycin 04/30-05/04, 06/21-06/23 Zosyn 07/21 - 07/25 Azithromycin 07/21 - 07/25 Fluconazole 04/29 - ; 07/26 ceftolozane/ tazobactam 07/25 - 08/06 Colistin nebs q8h 08/06 - 08/11 (2) Pleural effusion ICD Codes: J90 - Pleural effusion, not elsewhere classified Status: Acute Plan: US chest 08/01 demonstrating moderate right pleural effusion IR consulted for thoracentesis performed 08/05 Further plan as above (3) Acute CVA (cerebrovascular accident) ICD Codes: I63.9 - Cerebral infarction, unspecified Status: Chronic Plan: Neurologically stable, no improvement. Overall prognosis is poor. Persistent oxygen requirement See above note about meeting with Daughter on 07/23 and 07/26. Daughter still desires full code and aggressive care -Titrate oxygen via trach to maintain O2 saturation above 92% -Continue tube fees at 45ml/hr 24 hours per day thru peg Tube -Neurosurgery, neurology and palliative care have all been consulted in the past and agree with very poor prognosis with no meaningful neurologic recovery. History and imaging: Patient found minimally responsive with neurological deficits around 0820 04/24. Stat CT of head was ordered, which showed large left MCA infarct. Diffuse edema throughout the left MCA distribution, suggested completed infarct. This was discussed and was not a candidate for intracranial intervention. CT (04/30): Reduction in midline shift to 11mm. Unchanged large left MCA infarction. CT head (05/06) shows: Evolving large left-sided MCA territory infarct with minimally improved [id number]-[id number] subfalcine shift. No intercurrent hemorrhage or other acute abnormality. Echocardiogram- The left ventricular systolic function is low normal with an estimated ejection fraction in the range of 50-55%. Mild concentric left ventricular hypertrophy. Normal left ventricular size. Umltc-zm-[id number] mitral valve regurgitation. Carotid Artery US- No hemodynamically significant carotid stenosis (4) UTI (urinary tract infection) ICD Codes: N39.0 - Urinary tract infection, site not specified Status: Resolved Plan: UCx on 07/15 positive for E coli Repeat UCx on 07/20 positive for C. Freundii UCx 07/24 grew only yeast - See above for antibiotic history and coverage (5) Sacral decubitus ulcer ICD Codes: L89.159 - Pressure ulcer of sacral region, unspecified stage Status: Chronic Plan: Patient with Stage II pressure injury over the coccyx -Wound care consult appreciated: 1. Please cleanse coccyx wound every 3 days and PRN for soiling. 2. Apply Calcium Alginate to open wound bed. 3. Secure with bordered gauze every 3 days and PRN for soiling. 4. Continue to turn patient every 2 hours or PRN for comfort. 5. Use one ultrasorb for moisture. Please use flat sheet for repositioning. (6) Anemia ICD Codes: D64.9 - Anemia, unspecified Status: Chronic Plan: s/p 1u of PRBC on 05/28/17. Hgb stable Hemoccult negative on 05/29 - monitor H&H periodically Stable 07/31 (7) Urinary retention ICD Codes: R33.9 - Retention of urine, unspecified Status: Chronic Plan: - Cath last changed 07/15, pt afebrile - Urine output WNL (8) Type 2 diabetes mellitus ICD Codes: E11.9 - Type 2 diabetes mellitus without complications Status: Chronic Plan: - BSBG ranging 120-222 past 24 hours, requiring 5 units total supplemental insulin -continue to monitor BSG -Decreased Levemir to 15 units q 12 due to BG range below goal. -Will continue to monitor -BS goal 140-180 -Discontinued SSI on 07/16 -AccuCheks QShift -Glucerna for PEG tube feedings @ 45 ml/hr -Glucagon 1 mg per PRN protocol for hypoglycemia BS <70mg/dL History Admitted for DKA which has now resolved. Hemoglobin A1C is 12.9. Diabetes Type II is uncontrolled. (9) Hip fracture ICD Codes: S72.009A - Fracture of unspecified part of neck of unspecified femur , initial encounter for closed fracture Status: Resolved Plan: S/P left hip reduction and intramedullary nail fixation on 04-21-17 -c/w Calcium/Vitamin D (10) Hypertension ICD Codes: I10 - Essential (primary) hypertension Status: Chronic Plan: -Antihypertensives to keep SBP<160, as per critical care recs -c/w clonidine 0.1mg Q6h PRN SBP >160 -c/w lisinopril 20mg Q12h po Echocardiogram 8/24 - EF 50 to 55%. Mild concentric LVH. (11) Fluids, Electrolytes, and Nutrition Status: Acute Plan: Fluids: through PEG tube Electrolyte: Continue to monitor periodically, replete as needed Nutrition: continuous Glucerna tube feeds and free water, pump at 45mls/hr, tolerating feeds well, no residual. Protein 1 pack TID. Supplements: calcium TID and vit D3 QD DVT ppx: SCDs/heparin CVA ppx: aspirin 325 mg QD GI ppx: Lansoprazole 30mg qd via NG Problem Qualifiers (1) Chronic respiratory failure: Qualified Codes: J96.11 - Chronic respiratory failure with hypoxia (2) UTI (urinary tract infection): Qualified Codes: N39.0 - Urinary tract infection, site not specified (3) Sacral decubitus ulcer: Qualified Codes: L89.154 - Pressure ulcer of sacral region, stage 4 (4) Type 2 diabetes mellitus: Qualified Codes: E11.9 - Type 2 diabetes mellitus without complications (5) Hip fracture: (6) Hypertension: Qualified Codes: I10 - Essential (primary) hypertension Apple Winslow MD R1 Aug 15, 2017 12:51
[2017-08-16] VITALS (8 sets, daily range): BP systolic 141–179; BP diastolic 60–88; PULSE 74–93; RESP 18–22; TEMP 96.9–98.1; O2SAT 91–99
[2017-08-16] MEDS: INSULIN ASPART SUPPLEMENTAL SCALE SQ SCH ×5 (01:22→22:18)
[2017-08-16] MEDS: ARTIFICIAL TEARS OPTH SOLN 15 ML BTL EACH EYE SCH ×3 (06:51→22:16)
[2017-08-16] MEDS: HEPARIN SODIUM - SQ 10,000 UNITS/ML VIAL SQ SCH ×3 (07:55→22:16)
[2017-08-16] MEDS: CHOLECALCIFEROL (VIT D3) 5000 UNIT CAP PO SCH (08:31)
[2017-08-16] MEDS: LISINOPRIL 10 MG TAB PO SCH ×2 (08:31→22:13)
[2017-08-16] MEDS: CALCIUM/VITAMIN D 250 MG/125 U TAB PO SCH ×3 (08:31→16:49)
[2017-08-16] MEDS: LANSOPRAZOLE SOLUTAB 30 MG TAB NG SCH (08:32)
[2017-08-16] MEDS: ASPIRIN 325 MG TAB DOBHOFF SCH (08:33)
[2017-08-16] MEDS: SODIUM CHLORIDE 0.9% FLUSH 5 ML FLUSH IV FLUSH SCH ×2 (08:33→22:17)
[2017-08-16] MEDS: BENEPROTEIN POWDER 1 PACK G-TUBE SCH ×3 (08:33→16:49)
[2017-08-16] MEDS: POLYETHYLENE GLYCOL 17 GM PKG PEG SCH (08:33)
[2017-08-16] MEDS: INSULIN DETEMIR 100 UNITS/ML VIAL SQ SCH ×2 (08:33→22:17)
--- NOTE | 2017-08-16 10:51 | HHI.FPPN ---
Subjective Remarks No acute events overnight. Trach and PEG. Afebrile. VSS. (Apple Winslow MD R1) Objective Vitals Vital Signs Date Time Temp Pulse Resp B/P (MAP) Pulse Ox O2 Delivery O2 Flow Rate FiO2 08/16/17 10:18 97 Trach Collar 35 08/16/17 08:30 96 Trach Collar 6.00 28 Humidified 08/16/17 08:00 96.9 86 22 179/82 (114) 91 08/16/17 04:11 95 T-piece 6.00 35 08/16/17 01:02 97.1 93 18 160/73 (102) 95 08/15/17 22:23 93 Trach Collar 6.00 28 08/15/17 20:58 97.0 92 18 149/79 (102) 99 08/15/17 16:00 97.4 83 21 170/81 (110) 99 08/15/17 12:00 98.3 87 20 134/84 (101) 100 I/O 08/15/17 08/15/17 08/15/17 08/16/17 08/16/17 08/16/17 07:00 15:00 23:00 07:00 15:00 23:00 Intake Total 540 ml 0 ml 540 ml 0 ml Output Total 800 ml 600 ml 800 ml Balance -260 ml -600 ml -260 ml 0 ml Intake Oral 0 ml 0 ml Tube Feeding 540 ml 540 ml Output Urine Total 800 ml 600 ml 800 ml # Bowel Movements 1 2 (Apple Winslow MD R1) Objective Remarks GEN: Appears comfortable. NAD. Trach and PEG. HEAD: Normocephalic. Atraumatic. Right side facial droop. LUNGS: Decreased sounds in b/l bases, breathing spontaneously via T-tube. CARDIOVASCULAR: NRRR, normal S1/S2, no murmur GI/ABD: Soft, non-distended. No grimacing with palpation. Feeding tube insertion point with no redness, no distention NEURO: Not able to track. Flaccid paralysis on the right side. MUSC: SCDs on bilateral lower extremities. Pedal pulses present. SKIN: Sacral pressure ulcer extends from anus to coccyx. Stage II. EXTREMITIES: 1+ pitting edema up to distal tibia of right lower extremity. Trace lower extremity edema of left foot. Edema of right upper extremity improved from prior exam. Other: urinary catheter in place. Procedures ORIF 04/21/17 Intubation 04/30/17 Chest tube placement 05/07/17, removed 05/12/17 Trach placement 05/15/17 PEG tube placement 05/16/17 (Apple Winslow MD R1) A/P Assessment and Plan 76 y/o female with HTN, DM admitted for DKA and hip fracture s/p large CVA after ORIF she is currently stable with her current treatment but has had no meaningful functional recovery and do not anticipate any further neurologic recovery from here on. Dr. Harper, Dr. Tran and case management had a long discussion with the daughter on 07/23 and the patient's daughter is still hopeful for full recovery for her mom in spite of her mom's state of health since her CVA. DW the daughter that it is our belief based on her clinical picture that she will not make any sort of meaningful recovery and will remain on the trach and PEG for the rest of her life. DW the daughter due to her status that the patient will likely continue to decline and continue to acquire infections associated with this type of clinical picture including UTI, PNA, and sepsis. DW the daughter to consider the QOL that her mother would have wanted. We recommend that this patient receive Hospice services as we would not anticipate her living longer than 6 months. The daughter does not want to consider this at this time and she is the sole decision maker for this patient. In that case, we will continue to treat the patient aggressively as issues arise and honor the families wishes. A one-hour long family meeting was held (07/26) with patient's daughter Trice, Dr. Harper, Dr. Watts and patient's nurse to discuss patient's poor prognosis. We felt it was important to listen to daughter's perspective and address any questions or concerns she has about her mother's care. Patient goals of care were also discussed. Daughter still wants aggressive treatment. Daughter was informed that from our medical standpoint we do not anticipated any meaningful recovery from her mother's current baseline. Neither do we anticipate for mother to be able to get off PEG tube feeds and trach. However, we will continue to honor daughter's wishes and provide aggressive medical care. ID and pulmonology are actively following. Patient is currently being treated for MDR pseudomonas pna and pulmonology recommended bronchoscopy. Risk and benefits of the procedure were explained and discussed with daughter. The option for her mother not to have the bronchoscopy and to instead continue treatment with antibiotics was also discussed. She is currently unsure about the procedure. She was advised to take time to think about her decision keeping in mind what her mother's wishes would be. 08/02- Daughter at bedside. I had a long discussion with the daughter. Discussed with her about patient's unchanged status. She agreed to thoracentesis done on 08/05. She still wants aggressive care for her mother. (Apple Winslow MD R1) Attending Attestation Medical rounds reguarding this patient performed with Dr Ranjan Winslow this morning, detailed discussion relating to patients hospital course held, patient seen and examined, agree to documentation in this note, See Orders (Luis Baldwin MD) Problem List: (1) Chronic respiratory failure ICD Codes: J96.10 - Chronic respiratory failure, unspecified whether with hypoxia or hypercapnia Plan: At this point, respiratory failure is chronic on T-tube Hospital Acquired PNA on 07/21 CXR 08/01 demonstrating bilateral airspace disease and effusions, R>L sputum culture positive for Multi drug resistant pseudomonas Blood cultures from 07/21 no growth (final) Repeat blood cultures from 07/25 no growth final Legionella and S pneumonia urine antigen negative -ID following (Dr. Saleh), recommendations appreciated - Completed ceftolozane/ tazobactam (07/25-08/06) - Completed Colistin Neb 75 joseph q8hr (08/06-08/11) - Blood cultures 07/25 NGTD -Pulmonology following (Dr. Rizo), recommended bronchoscopy procedure, daughter refused at this time - CXR 07/29 revealed diffuse bilateral airspace disease with interval worsening on the right, lasix 40mg IV given once for fluid overload - Repeat CXR revealed worsening b/l airspace disease and effusion, slightly worse on the left since 07/29. Right effusion and airspace diases remains larger than the left side. - US chest wall, moderate right pleural effusion. - Consulted IR for US guided thoracentesis, performed on 08/05 removing 1450 cc of clear yellow fluid - Pleural fluid culture from 08/05 with no growth after 72 hours Infection History Pseudomonas hospital-acquired pneumonia - active MSSA bacteremia - resolved Serratia/staph aureus pneumonia - resolved C glabrata UTI - resolved Citrobacter UTI - resolved Serratia/MSSA sputum VAP - resolved Antibiotic History Cefazolin: 04/21-04/22, 05/15-05/16 Cefepime: 04/30-05/04, 05/27-06/03 Ceftrioxone 05/26-05/27 Erythromycin 06/16-06/18, 06/19 Gentamicin 04/21 vancomycin 04/30-05/04, 06/21-06/23 Zosyn 07/21 - 07/25 Azithromycin 07/21 - 07/25 Fluconazole 04/29 - ; 07/26 ceftolozane/ tazobactam 07/25 - 08/06 Colistin nebs q8h 08/06 - 08/11 (2) Pleural effusion ICD Codes: J90 - Pleural effusion, not elsewhere classified Status: Acute Plan: US chest 08/01 demonstrating moderate right pleural effusion IR consulted for thoracentesis performed 08/05 Further plan as above (3) Acute CVA (cerebrovascular accident) ICD Codes: I63.9 - Cerebral infarction, unspecified Status: Chronic Plan: Neurologically stable, no improvement. Overall prognosis is poor. Persistent oxygen requirement See above note about meeting with Daughter on 07/23 and 07/26. Daughter still desires full code and aggressive care -Titrate oxygen via trach to maintain O2 saturation above 92% -Continue tube fees at 45ml/hr 24 hours per day thru peg Tube -Neurosurgery, neurology and palliative care have all been consulted in the past and agree with very poor prognosis with no meaningful neurologic recovery. History and imaging: Patient found minimally responsive with neurological deficits around 0820 04/24. Stat CT of head was ordered, which showed large left MCA infarct. Diffuse edema throughout the left MCA distribution, suggested completed infarct. This was discussed and was not a candidate for intracranial intervention. CT (04/30): Reduction in midline shift to 11mm. Unchanged large left MCA infarction. CT head (05/06) shows: Evolving large left-sided MCA territory infarct with minimally improved [id number]-huckb subfalcine shift. No intercurrent hemorrhage or other acute abnormality. Echocardiogram- The left ventricular systolic function is low normal with an estimated ejection fraction in the range of 50-55%. Mild concentric left ventricular hypertrophy. Normal left ventricular size. Frswd-wr-tooh mitral valve regurgitation. Carotid Artery US- No hemodynamically significant carotid stenosis (4) UTI (urinary tract infection) ICD Codes: N39.0 - Urinary tract infection, site not specified Status: Resolved Plan: UCx on 07/15 positive for E coli Repeat UCx on 07/20 positive for C. Freundii UCx 07/24 grew only yeast - See above for antibiotic history and coverage (5) Sacral decubitus ulcer ICD Codes: L89.159 - Pressure ulcer of sacral region, unspecified stage Status: Chronic Plan: Patient with Stage II pressure injury over the coccyx -Wound care consult appreciated: 1. Please cleanse coccyx wound every 3 days and PRN for soiling. 2. Apply Calcium Alginate to open wound bed. 3. Secure with bordered gauze every 3 days and PRN for soiling. 4. Continue to turn patient every 2 hours or PRN for comfort. 5. Use one ultrasorb for moisture. Please use flat sheet for repositioning. (6) Anemia ICD Codes: D64.9 - Anemia, unspecified Status: Chronic Plan: s/p 1u of PRBC on 05/28/17. Hgb stable Hemoccult negative on 05/29 - monitor H&H periodically Stable 07/31 (7) Urinary retention ICD Codes: R33.9 - Retention of urine, unspecified Status: Chronic Plan: - Cath last changed 07/15, pt afebrile - Urine output WNL (8) Type 2 diabetes mellitus ICD Codes: E11.9 - Type 2 diabetes mellitus without complications Status: Chronic Plan: - BSBG ranging 120-222 past 24 hours, requiring 5 units total supplemental insulin -continue to monitor BSG -Decreased Levemir to 15 units q 12 due to BG range below goal. -Will continue to monitor -BS goal 140-180 -Discontinued SSI on 07/16 -AccuCheks QShift -Glucerna for PEG tube feedings @ 45 ml/hr -Glucagon 1 mg per PRN protocol for hypoglycemia BS <70mg/dL History Admitted for DKA which has now resolved. Hemoglobin A1C is 12.9. Diabetes Type II is uncontrolled. (9) Hip fracture ICD Codes: S72.009A - Fracture of unspecified part of neck of unspecified femur , initial encounter for closed fracture Status: Resolved Plan: S/P left hip reduction and intramedullary nail fixation on 04-21-17 -c/w Calcium/Vitamin D (10) Hypertension ICD Codes: I10 - Essential (primary) hypertension Status: Chronic Plan: -Antihypertensives to keep SBP<160, as per critical care recs -c/w clonidine 0.1mg Q6h PRN SBP >160 -c/w lisinopril 20mg Q12h po Echocardiogram 04/24 - EF 50 to 55%. Mild concentric LVH. (11) Fluids, Electrolytes, and Nutrition Status: Acute Plan: Fluids: through PEG tube Electrolyte: Continue to monitor periodically, replete as needed Nutrition: continuous Glucerna tube feeds and free water, pump at 45mls/hr, tolerating feeds well, no residual. Protein 1 pack TID. Supplements: calcium TID and vit D3 QD DVT ppx: SCDs/heparin CVA ppx: aspirin 325 mg QD GI ppx: Lansoprazole 30mg qd via NG (Apple Winslow MD R1) Problem Qualifiers (1) Chronic respiratory failure: Qualified Codes: J96.11 - Chronic respiratory failure with hypoxia (2) UTI (urinary tract infection): Qualified Codes: N39.0 - Urinary tract infection, site not specified (3) Sacral decubitus ulcer: Qualified Codes: L89.154 - Pressure ulcer of sacral region, stage 4 (4) Type 2 diabetes mellitus: Qualified Codes: E11.9 - Type 2 diabetes mellitus without complications (5) Hip fracture: (6) Hypertension: Qualified Codes: I10 - Essential (primary) hypertension Apple Winslow MD R1 Aug 16, 2017 10:51 Luis Baldwin MD Aug 17, 2017 10:47
[2017-08-17] VITALS: BP 165/78; PULSE 87; RESP 20; TEMP 96.3; O2SAT 100
[2017-08-17] MEDS: ARTIFICIAL TEARS OPTH SOLN 15 ML BTL EACH EYE SCH ×3 (07:17→23:09)
[2017-08-17] MEDS: HEPARIN SODIUM - SQ 10,000 UNITS/ML VIAL SQ SCH ×3 (07:17→23:09)
[2017-08-17] MEDS: INSULIN ASPART SUPPLEMENTAL SCALE SQ SCH ×4 (07:18→23:10)
[2017-08-17 08:00] VITALS: BP 136/64; PULSE 72; RESP 20; TEMP 96.9; O2SAT 95
[2017-08-17] MEDS: POLYETHYLENE GLYCOL 17 GM PKG PEG SCH (09:00)
[2017-08-17] MEDS: ASPIRIN 325 MG TAB DOBHOFF SCH (09:28)
[2017-08-17] MEDS: LANSOPRAZOLE SOLUTAB 30 MG TAB NG SCH (09:28)
[2017-08-17] MEDS: CALCIUM/VITAMIN D 250 MG/125 U TAB PO SCH ×3 (09:28→17:17)
[2017-08-17] MEDS: CHOLECALCIFEROL (VIT D3) 5000 UNIT CAP PO SCH (09:28)
[2017-08-17] MEDS: LISINOPRIL 10 MG TAB PO SCH ×2 (09:28→23:07)
[2017-08-17] MEDS: INSULIN DETEMIR 100 UNITS/ML VIAL SQ SCH ×2 (09:30→23:11)
[2017-08-17] MEDS: SODIUM CHLORIDE 0.9% FLUSH 5 ML FLUSH IV FLUSH SCH ×2 (09:30→23:08)
[2017-08-17] MEDS: BENEPROTEIN POWDER 1 PACK G-TUBE SCH ×3 (09:30→17:17)
[2017-08-17 09:59] VITALS: O2SAT 100
--- NOTE | 2017-08-17 10:16 | HHI.FPPN ---
Subjective Remarks No acute events overnight. Afebrile. VSS. Nonresponsive to voice and touch. (Apple Muñoz MD R1) Objective Vitals Vital Signs Date Time Temp Pulse Resp B/P (MAP) Pulse Ox O2 Delivery O2 Flow Rate FiO2 08/17/17 09:59 100 T-piece 6.00 35 08/17/17 09:59 100 T-piece 6.00 35 08/17/17 09:30 93 Humidified 6.00 28 08/17/17 08:00 96.9 72 20 136/64 (88) 95 08/17/17 00:00 96.3 87 20 165/78 (107) 100 08/16/17 22:25 97 T-piece 35 08/16/17 22:25 97 T-piece 35 08/16/17 20:00 98.1 83 20 152/72 (98) 98 08/16/17 16:00 96.9 87 19 141/88 (105) 99 08/16/17 12:00 97.4 74 22 143/60 (87) 95 08/16/17 10:18 97 Trach Collar 35 I/O 08/16/17 08/16/17 08/16/17 08/17/17 08/17/17 08/17/17 07:00 15:00 23:00 07:00 15:00 23:00 Intake Total 540 ml 240 ml 120 ml 744 ml Output Total 800 ml 450 ml 800 ml Balance -260 ml 240 ml -330 ml -800 ml 744 ml Intake Oral 0 ml 0 ml Tube Feeding 540 ml 120 ml 120 ml 744 ml Other 120 ml Output Urine Total 800 ml 450 ml 800 ml (Apple Muñoz MD R1) Objective Remarks GEN: Appears comfortable. NAD. Trach and PEG. HEAD: Normocephalic. Atraumatic. Right side facial droop. LUNGS: Decreased sounds in b/l bases, breathing spontaneously via T-tube. CARDIOVASCULAR: NRRR, normal S1/S2, no murmur GI/ABD: Soft, non-distended. No grimacing with palpation. Feeding tube insertion point with no redness, no distention NEURO: Not able to track. Flaccid paralysis on the right side. MUSC: SCDs on bilateral lower extremities. Pedal pulses present. SKIN: Sacral pressure ulcer extends from anus to coccyx. Stage II. EXTREMITIES: 1+ pitting edema up to distal tibia of right lower extremity. Trace lower extremity edema of left foot. Edema of right upper extremity improved from prior exam. Other: urinary catheter in place. Procedures ORIF 04/21/17 Intubation 04/30/17 Chest tube placement 05/07/17, removed 05/12/17 Trach placement 05/15/17 PEG tube placement 05/16/17 (Apple Muñoz MD R1) A/P Assessment and Plan 76 y/o female with HTN, DM admitted for DKA and hip fracture s/p large CVA after ORIF she is currently stable with her current treatment but has had no meaningful functional recovery and do not anticipate any further neurologic recovery from here on. Dr. Harper, Dr. Tran and case management had a long discussion with the daughter on 07/23 and the patient's daughter is still hopeful for full recovery for her mom in spite of her mom's state of health since her CVA. DW the daughter that it is our belief based on her clinical picture that she will not make any sort of meaningful recovery and will remain on the trach and PEG for the rest of her life. DW the daughter due to her status that the patient will likely continue to decline and continue to acquire infections associated with this type of clinical picture including UTI, PNA, and sepsis. DW the daughter to consider the QOL that her mother would have wanted. We recommend that this patient receive Hospice services as we would not anticipate her living longer than 6 months. The daughter does not want to consider this at this time and she is the sole decision maker for this patient. In that case, we will continue to treat the patient aggressively as issues arise and honor the families wishes. A one-hour long family meeting was held (07/26) with patient's daughter Trice, Dr. Mac Mon and patient's nurse to discuss patient's poor prognosis. We felt it was important to listen to daughter's perspective and address any questions or concerns she has about her mother's care. Patient goals of care were also discussed. Daughter still wants aggressive treatment. Daughter was informed that from our medical standpoint we do not anticipated any meaningful recovery from her mother's current baseline. Neither do we anticipate for mother to be able to get off PEG tube feeds and trach. However, we will continue to honor daughter's wishes and provide aggressive medical care. ID and pulmonology are actively following. Patient is currently being treated for MDR pseudomonas pna and pulmonology recommended bronchoscopy. Risk and benefits of the procedure were explained and discussed with daughter. The option for her mother not to have the bronchoscopy and to instead continue treatment with antibiotics was also discussed. She is currently unsure about the procedure. She was advised to take time to think about her decision keeping in mind what her mother's wishes would be. 08/02- Daughter at bedside. I had a long discussion with the daughter. Discussed with her about patient's unchanged status. She agreed to thoracentesis done on 08/05. She still wants aggressive care for her mother. (Apple Muñoz MD R1) Attending Attestation THIS CASE WAS DISCUSSED WITH THE RESIDENT PHYSICIAN,DR Ranjan MUÑOZ. I HAVE REVIEWED THE RECORD,PATIENT SEEN AND EXAMINED AND AGREE WITH THE ABOVE NOTE AND PLAN OF CARE WAS DISCUSSED. I HAVE AUTHORIZED THE ORDERS. (Luis Baldwin MD) Problem List: (1) Chronic respiratory failure ICD Codes: J96.10 - Chronic respiratory failure, unspecified whether with hypoxia or hypercapnia Plan: At this point, respiratory failure is chronic on T-tube Hospital Acquired PNA on 07/21 CXR 08/01 demonstrating bilateral airspace disease and effusions, R>L sputum culture positive for Multi drug resistant pseudomonas Blood cultures from 07/21 no growth (final) Repeat blood cultures from 07/25 no growth final Legionella and S pneumonia urine antigen negative -ID following (Dr. Saleh), recommendations appreciated - Completed ceftolozane/ tazobactam (07/25-08/06) - Completed Colistin Neb 75 joseph q8hr (08/06-08/11) - Blood cultures 07/25 NGTD -Pulmonology following (Dr. Rizo), recommended bronchoscopy procedure, daughter refused at this time - CXR 07/29 revealed diffuse bilateral airspace disease with interval worsening on the right, lasix 40mg IV given once for fluid overload - Repeat CXR revealed worsening b/l airspace disease and effusion, slightly worse on the left since 07/29. Right effusion and airspace diases remains larger than the left side. - US chest wall, moderate right pleural effusion. - Consulted IR for US guided thoracentesis, performed on 08/05 removing 1450 cc of clear yellow fluid - Pleural fluid culture from 08/05 with no growth after 72 hours Infection History Pseudomonas hospital-acquired pneumonia - active MSSA bacteremia - resolved Serratia/staph aureus pneumonia - resolved C glabrata UTI - resolved Citrobacter UTI - resolved Serratia/MSSA sputum VAP - resolved Antibiotic History Cefazolin: 04/21-04/22, 05/15-05/16 Cefepime: 04/30-05/04, 05/27-06/03 Ceftrioxone 05/26-05/27 Erythromycin 06/16-06/18, 06/19 Gentamicin 04/21 vancomycin 04/30-05/04, 06/21-06/23 Zosyn 07/21 - 07/25 Azithromycin 07/21 - 07/25 Fluconazole 04/29 - ; 07/26 ceftolozane/ tazobactam 07/25 - 08/06 Colistin nebs q8h 08/06 - 08/11 (2) Pleural effusion ICD Codes: J90 - Pleural effusion, not elsewhere classified Status: Acute Plan: US chest 08/01 demonstrating moderate right pleural effusion IR consulted for thoracentesis performed 08/05 Further plan as above (3) Acute CVA (cerebrovascular accident) ICD Codes: I63.9 - Cerebral infarction, unspecified Status: Chronic Plan: Neurologically stable, no improvement. Overall prognosis is poor. Persistent oxygen requirement See above note about meeting with Daughter on 07/23 and 07/26. Daughter still desires full code and aggressive care -Titrate oxygen via trach to maintain O2 saturation above 92% -Continue tube fees at 45ml/hr 24 hours per day thru peg Tube -Neurosurgery, neurology and palliative care have all been consulted in the past and agree with very poor prognosis with no meaningful neurologic recovery. History and imaging: Patient found minimally responsive with neurological deficits around 0820 04/24. Stat CT of head was ordered, which showed large left MCA infarct. Diffuse edema throughout the left MCA distribution, suggested completed infarct. This was discussed and was not a candidate for intracranial intervention. CT (04/30): Reduction in midline shift to 11mm. Unchanged large left MCA infarction. CT head (05/06) shows: Evolving large left-sided MCA territory infarct with minimally improved oiyk-us-lqheo subfalcine shift. No intercurrent hemorrhage or other acute abnormality. Echocardiogram- The left ventricular systolic function is low normal with an estimated ejection fraction in the range of 50-55%. Mild concentric left ventricular hypertrophy. Normal left ventricular size. Wzkij-ql-[id number] mitral valve regurgitation. Carotid Artery US- No hemodynamically significant carotid stenosis (4) UTI (urinary tract infection) ICD Codes: N39.0 - Urinary tract infection, site not specified Status: Resolved Plan: UCx on 07/15 positive for E coli Repeat UCx on 07/20 positive for C. Freundii UCx 07/24 grew only yeast - See above for antibiotic history and coverage (5) Sacral decubitus ulcer ICD Codes: L89.159 - Pressure ulcer of sacral region, unspecified stage Status: Chronic Plan: Patient with Stage II pressure injury over the coccyx -Wound care consult appreciated: 1. Please cleanse coccyx wound every 3 days and PRN for soiling. 2. Apply Calcium Alginate to open wound bed. 3. Secure with bordered gauze every 3 days and PRN for soiling. 4. Continue to turn patient every 2 hours or PRN for comfort. 5. Use one ultrasorb for moisture. Please use flat sheet for repositioning. (6) Anemia ICD Codes: D64.9 - Anemia, unspecified Status: Chronic Plan: s/p 1u of PRBC on 05/28/17. Hgb stable Hemoccult negative on 05/29 - monitor H&H periodically Stable 07/31 (7) Urinary retention ICD Codes: R33.9 - Retention of urine, unspecified Status: Chronic Plan: - Cath last changed 07/15, pt afebrile - Urine output WNL (8) Type 2 diabetes mellitus ICD Codes: E11.9 - Type 2 diabetes mellitus without complications Status: Chronic Plan: - BSBG ranging 120-222 past 24 hours, requiring 5 units total supplemental insulin -continue to monitor BSG -Decreased Levemir to 15 units q 12 due to BG range below goal. -Will continue to monitor -BS goal 140-180 -Discontinued SSI on 07/16 -AccuCheks QShift -Glucerna for PEG tube feedings @ 45 ml/hr -Glucagon 1 mg per PRN protocol for hypoglycemia BS <70mg/dL History Admitted for DKA which has now resolved. Hemoglobin A1C is 12.9. Diabetes Type II is uncontrolled. (9) Hip fracture ICD Codes: S72.009A - Fracture of unspecified part of neck of unspecified femur , initial encounter for closed fracture Status: Resolved Plan: S/P left hip reduction and intramedullary nail fixation on 04-21-17 -c/w Calcium/Vitamin D (10) Hypertension ICD Codes: I10 - Essential (primary) hypertension Status: Chronic Plan: -Antihypertensives to keep SBP<160, as per critical care recs -c/w clonidine 0.1mg Q6h PRN SBP >160 -c/w lisinopril 20mg Q12h po Echocardiogram 04/24 - EF 50 to 55%. Mild concentric LVH. (11) Fluids, Electrolytes, and Nutrition Status: Acute Plan: Fluids: through PEG tube Electrolyte: Continue to monitor periodically, replete as needed Nutrition: continuous Glucerna tube feeds and free water, pump at 45mls/hr, tolerating feeds well, no residual. Protein 1 pack TID. Supplements: calcium TID and vit D3 QD DVT ppx: SCDs/heparin CVA ppx: aspirin 325 mg QD GI ppx: Lansoprazole 30mg qd via NG (Apple Muñoz MD R1) Problem Qualifiers (1) Chronic respiratory failure: Qualified Codes: J96.11 - Chronic respiratory failure with hypoxia (2) UTI (urinary tract infection): Qualified Codes: N39.0 - Urinary tract infection, site not specified (3) Sacral decubitus ulcer: Qualified Codes: L89.154 - Pressure ulcer of sacral region, stage 4 (4) Type 2 diabetes mellitus: Qualified Codes: E11.9 - Type 2 diabetes mellitus without complications (5) Hip fracture: (6) Hypertension: Qualified Codes: I10 - Essential (primary) hypertension Apple Muñoz MD R1 Aug 17, 2017 10:16 Luis Baldwin MD Aug 19, 2017 21:17
[2017-08-17 16:00] VITALS: BP 120/52; PULSE 69; RESP 20; TEMP 96.9; O2SAT 100
--- NOTE | 2017-08-17 19:28 | HHI.PR ---
Addendum to Inpatient Note Addendum Reason: Additional Documentation Additional Information Off-service note: Hospital Course Summary 76 yo female with PMH of DM, HTN admitted for DKA and a left hip fracture. Her DKA corrected with medical therapy, and she was taken to the OR for ORIF. She tolerated the ORIF well. On POD#3 however, she developed a large acute CVA. She was evaluated by neurology and determined not to be a candidate for tPA. Due to the size of her stroke, her prognosis was evaluated as very poor. After her stroke she developed acute hypoxic respiratory failure and was transferred to the ICU for ventilator support. Her hospital course has been complicated with numerous healthcare-associated infections. See below for details of infection and antibiotic history. She also developed a pneumothorax while in the ICU and had a chest tube placed from 05/07 to 05/12. She was switched from intubation to T- tube on 05/15 and eventually developed spontaneous breathing without ventilatory support. However, she continues to require oxygenation through the T-tube due to hypoxia and likely will never be able to be weaned off the T-tube. Given her poor prognosis, palliative care had been consulted, however the daughter who is patient's POA opts for aggressive medical management based on patient's philosophy. Palliative now signed off but available as needed. Primary team having ongoing discussions with daughter about patient's status, prognosis, and care options. Most recently, Ms. Hein was found to have Pseudomonas pneumonia. ID and pulmonology consulted. Pt completed ceftolozane/ tazobactam 07/25 - 08/06 and Colistin nebs q8h 08/06 - 08/11. US guided thoracentesis performed per IR on 08/05 removing 1450 cc of clear yellow fluid. Pleural fluid culture from 08/05 with no growth after 72 hours. At this time, patient stable from pulmonary standpoint. ID signed off. Pulmonary following intermittently. Continuing with supportive care. Discharge planning: unclear timetable at this time. Will likely need SNF. Please touch base with case management and daughter. Consultants ID Dr. Saleh signed off 08/06/[address] Rizo following intermittently, available as needed Palliative Care Dr. Rivera following intermittently, available as needed CCM Dr. Red signed off 07/11/[address] Malave signed off 05/14/[address] Rene signed off 05/22/17 Infection History Pseudomonas hospital-acquired pneumonia - active MSSA bacteremia - resolved Serratia/staph aureus pneumonia - resolved C glabrata UTI - resolved Citrobacter UTI - resolved Serratia/MSSA sputum VAP - resolved Antibiotic History Cefazolin: 04/21-04/22, 05/15-05/16 Cefepime: 04/30-05/04, 05/27-06/03 Ceftrioxone 05/26-05/27 Erythromycin 06/16-06/18, 06/19 Gentamicin 04/21 vancomycin 04/30-05/04, 06/21-06/23 Zosyn 07/21 - 07/25 Azithromycin 07/21 - 07/25 Fluconazole 04/29 - ; 07/26 ceftolozane/ tazobactam 07/25 - 08/06 Colistin nebs q8h 08/06 - 08/11 Apple Winslow MD R1 Aug 17, 2017 19:28
[2017-08-18] VITALS (8 sets, daily range): BP systolic 123–150; BP diastolic 59–81; PULSE 70–81; RESP 16–18; TEMP 96.3–98.8; O2SAT 93–99
[2017-08-18] MEDS: INSULIN ASPART SUPPLEMENTAL SCALE SQ SCH ×3 (06:00→18:00)
[2017-08-18] MEDS: HEPARIN SODIUM - SQ 10,000 UNITS/ML VIAL SQ SCH ×3 (06:15→22:26)
[2017-08-18] MEDS: ARTIFICIAL TEARS OPTH SOLN 15 ML BTL EACH EYE SCH ×3 (06:15→22:26)
[2017-08-18] MEDS: BENEPROTEIN POWDER 1 PACK G-TUBE SCH ×3 (09:00→18:00)
[2017-08-18] MEDS: SODIUM CHLORIDE 0.9% FLUSH 5 ML FLUSH IV FLUSH SCH ×2 (09:00→22:27)
[2017-08-18] MEDS: CALCIUM/VITAMIN D 250 MG/125 U TAB PO SCH ×3 (10:21→18:00)
[2017-08-18] MEDS: CHOLECALCIFEROL (VIT D3) 5000 UNIT CAP PO SCH (10:21)
[2017-08-18] MEDS: LANSOPRAZOLE SOLUTAB 30 MG TAB NG SCH (10:22)
[2017-08-18] MEDS: LISINOPRIL 10 MG TAB PO SCH ×2 (10:22→22:27)
[2017-08-18] MEDS: ASPIRIN 325 MG TAB DOBHOFF SCH (10:22)
--- NOTE | 2017-08-18 10:22 | HHI.FPPN ---
Subjective Remarks Patient seen and examined this morning. Spontaneous movement, does not verbally respond to speech. Afebrile overnight. Objective Vitals Vital Signs Date Time Temp Pulse Resp B/P (MAP) Pulse Ox O2 Delivery O2 Flow Rate FiO2 08/18/17 08:00 96.8 81 16 148/81 (103) 94 08/18/17 07:51 95 T-piece 35 08/18/17 07:51 95 T-piece 35 08/18/17 00:10 96.3 74 18 150/79 (102) 99 08/18/17 00:00 97.1 72 18 149/75 (99) 96 08/17/17 16:00 96.9 69 20 120/52 (74) 100 I/O 08/17/17 08/17/17 08/17/17 08/18/17 08/18/17 08/18/17 07:00 15:00 23:00 07:00 15:00 23:00 Intake Total 1364 ml Output Total 800 ml 302 ml Balance -800 ml 1364 ml -302 ml Intake Oral 0 ml Tube Feeding 744 ml Other 620 ml Output Urine Total 800 ml 300 ml Stool Total 2 ml # Bowel Movements 1 Objective Remarks GEN: Appears comfortable. NAD. Trach and PEG. HEAD: Normocephalic. Atraumatic. Right side facial droop. LUNGS: Decreased sounds in b/l bases, breathing spontaneously via T-tube. CARDIOVASCULAR: NRRR, normal S1/S2, no murmur GI/ABD: Soft, non-distended. No grimacing with palpation. Feeding tube insertion point with no redness, no distention NEURO: Not able to track. Flaccid paralysis on the right side. MUSC: SCDs on bilateral lower extremities. Pedal pulses present. SKIN: Sacral pressure ulcer extends from anus to coccyx. Stage II. EXTREMITIES: 1+ pitting edema up to distal tibia of right lower extremity. Trace lower extremity edema of left foot. Edema of right upper extremity improved from prior exam. Other: urinary catheter in place. Procedures ORIF 04/21/17 Intubation 04/30/17 Chest tube placement 05/07/17, removed 05/12/17 Trach placement 05/15/17 PEG tube placement 05/16/17 A/P Assessment and Plan 76 y/o female with HTN, DM admitted for DKA and hip fracture s/p large CVA after ORIF she is currently stable with her current treatment but has had no meaningful functional recovery and do not anticipate any further neurologic recovery from here on. Dr. Harper, Dr. Tran and case management had a long discussion with the daughter on 07/23 and the patient's daughter is still hopeful for full recovery for her mom in spite of her mom's state of health since her CVA. DW the daughter that it is our belief based on her clinical picture that she will not make any sort of meaningful recovery and will remain on the trach and PEG for the rest of her life. DW the daughter due to her status that the patient will likely continue to decline and continue to acquire infections associated with this type of clinical picture including UTI, PNA, and sepsis. DW the daughter to consider the QOL that her mother would have wanted. We recommend that this patient receive Hospice services as we would not anticipate her living longer than 6 months. The daughter does not want to consider this at this time and she is the sole decision maker for this patient. In that case, we will continue to treat the patient aggressively as issues arise and honor the families wishes. A one-hour long family meeting was held (07/26) with patient's daughter Trice, Dr. Harper, Dr. Watts and patient's nurse to discuss patient's poor prognosis. We felt it was important to listen to daughter's perspective and address any questions or concerns she has about her mother's care. Patient goals of care were also discussed. Daughter still wants aggressive treatment. Daughter was informed that from our medical standpoint we do not anticipated any meaningful recovery from her mother's current baseline. Neither do we anticipate for mother to be able to get off PEG tube feeds and trach. However, we will continue to honor daughter's wishes and provide aggressive medical care. ID and pulmonology are actively following. Patient is currently being treated for MDR pseudomonas pna and pulmonology recommended bronchoscopy. Risk and benefits of the procedure were explained and discussed with daughter. The option for her mother not to have the bronchoscopy and to instead continue treatment with antibiotics was also discussed. She is currently unsure about the procedure. She was advised to take time to think about her decision keeping in mind what her mother's wishes would be. 08/02- Daughter at bedside. I had a long discussion with the daughter. Discussed with her about patient's unchanged status. She agreed to thoracentesis done on 08/05. She still wants aggressive care for her mother. Problem List: (1) Chronic respiratory failure ICD Codes: J96.10 - Chronic respiratory failure, unspecified whether with hypoxia or hypercapnia Plan: At this point, respiratory failure is chronic on T-tube Hospital Acquired PNA on 07/21 CXR 08/01 demonstrating bilateral airspace disease and effusions, R>L sputum culture positive for Multi drug resistant pseudomonas Blood cultures from 07/21 no growth (final) Repeat blood cultures from 07/25 no growth final Legionella and S pneumonia urine antigen negative -ID signed off at this time (Dr. Saleh), recommendations appreciated - Completed ceftolozane/ tazobactam (07/25-08/06) - Completed Colistin Neb 75 joseph q8hr (08/06-08/11) - Blood cultures 07/25 NGTD -Pulmonology following (Dr. Rizo), recommended bronchoscopy procedure, daughter refused - CXR 07/29 revealed diffuse bilateral airspace disease with interval worsening on the right, lasix 40mg IV given once for fluid overload - Repeat CXR revealed worsening b/l airspace disease and effusion, slightly worse on the left since 07/29. Right effusion and airspace diases remains larger than the left side. - US chest wall, moderate right pleural effusion. - Consulted IR for US guided thoracentesis, performed on 08/05 removing 1450 cc of clear yellow fluid - Pleural fluid culture from 08/05 with no growth after 72 hours Infection History Pseudomonas hospital-acquired pneumonia - resolved MSSA bacteremia - resolved Serratia/staph aureus pneumonia - resolved C glabrata UTI - resolved Citrobacter UTI - resolved Serratia/MSSA sputum VAP - resolved Antibiotic History Cefazolin: 04/21-04/22, 05/15-05/16 Cefepime: 04/30-05/04, 05/27-06/03 Ceftrioxone 05/26-05/27 Erythromycin 06/16-06/18, 06/19 Gentamicin 04/21 vancomycin 04/30-05/04, 06/21-06/23 Zosyn 07/21 - 07/25 Azithromycin 07/21 - 07/25 Fluconazole 04/29 - ; 07/26 ceftolozane/ tazobactam 07/25 - 08/06 Colistin nebs q8h 08/06 - 08/11 (2) Pleural effusion ICD Codes: J90 - Pleural effusion, not elsewhere classified Status: Acute Plan: US chest 08/01 demonstrating moderate right pleural effusion IR consulted for thoracentesis performed 08/05 Further plan as above (3) Acute CVA (cerebrovascular accident) ICD Codes: I63.9 - Cerebral infarction, unspecified Status: Chronic Plan: Neurologically stable, no improvement. Overall prognosis is poor. Persistent oxygen requirement See above note about meeting with Daughter on 07/23 and 07/26. Daughter still desires full code and aggressive care -Titrate oxygen via trach to maintain O2 saturation above 92% -Continue tube fees at 45ml/hr 24 hours per day thru peg Tube -Neurosurgery, neurology and palliative care have all been consulted in the past and agree with very poor prognosis with no meaningful neurologic recovery. History and imaging: Patient found minimally responsive with neurological deficits around 0820 04/24. Stat CT of head was ordered, which showed large left MCA infarct. Diffuse edema throughout the left MCA distribution, suggested completed infarct. This was discussed and was not a candidate for intracranial intervention. CT (04/30): Reduction in midline shift to 11mm. Unchanged large left MCA infarction. CT head (05/06) shows: Evolving large left-sided MCA territory infarct with minimally improved [id number] subfalcine shift. No intercurrent hemorrhage or other acute abnormality. Echocardiogram- The left ventricular systolic function is low normal with an estimated ejection fraction in the range of 50-55%. Mild concentric left ventricular hypertrophy. Normal left ventricular size. Jjlrp-vc-sinr mitral valve regurgitation. Carotid Artery US- No hemodynamically significant carotid stenosis (4) UTI (urinary tract infection) ICD Codes: N39.0 - Urinary tract infection, site not specified Status: Resolved Plan: UCx on 07/15 positive for E coli Repeat UCx on 07/20 positive for C. Freundii UCx 07/24 grew only yeast - See above for antibiotic history and coverage (5) Sacral decubitus ulcer ICD Codes: L89.159 - Pressure ulcer of sacral region, unspecified stage Status: Chronic Plan: Patient with Stage II pressure injury over the coccyx -Wound care consult appreciated: 1. Please cleanse coccyx wound every 3 days and PRN for soiling. 2. Apply Calcium Alginate to open wound bed. 3. Secure with bordered gauze every 3 days and PRN for soiling. 4. Continue to turn patient every 2 hours or PRN for comfort. 5. Use one ultrasorb for moisture. Please use flat sheet for repositioning. (6) Anemia ICD Codes: D64.9 - Anemia, unspecified Status: Chronic Plan: s/p 1u of PRBC on 05/28/17. Hgb stable Hemoccult negative on 05/29 - monitor H&H periodically Stable 07/31 (7) Urinary retention ICD Codes: R33.9 - Retention of urine, unspecified Status: Chronic Plan: - Cath last changed 07/15, pt afebrile - Urine output WNL (8) Type 2 diabetes mellitus ICD Codes: E11.9 - Type 2 diabetes mellitus without complications Status: Chronic Plan: - BSBG ranging 120-222 past 24 hours, requiring 5 units total supplemental insulin -continue to monitor BSG -Decreased Levemir to 15 units q 12 due to BG range below goal. -Will continue to monitor -BS goal 140-180 -Discontinued SSI on 07/16 -AccuCheks QShift -Glucerna for PEG tube feedings @ 45 ml/hr -Glucagon 1 mg per PRN protocol for hypoglycemia BS <70mg/dL History Admitted for DKA which has now resolved. Hemoglobin A1C is 12.9. Diabetes Type II is uncontrolled. (9) Hip fracture ICD Codes: S72.009A - Fracture of unspecified part of neck of unspecified femur , initial encounter for closed fracture Status: Resolved Plan: S/P left hip reduction and intramedullary nail fixation on 04-21-17 -c/w Calcium/Vitamin D (10) Hypertension ICD Codes: I10 - Essential (primary) hypertension Status: Chronic Plan: -Antihypertensives to keep SBP<160, as per critical care recs -c/w clonidine 0.1mg Q6h PRN SBP >160 -c/w lisinopril 20mg Q12h po Echocardiogram 04/24 - EF 50 to 55%. Mild concentric LVH. (11) Fluids, Electrolytes, and Nutrition Status: Acute Plan: Fluids: through PEG tube Electrolyte: Continue to monitor periodically, replete as needed Nutrition: continuous Glucerna tube feeds and free water, pump at 45mls/hr, tolerating feeds well, no residual. Protein 1 pack TID. Supplements: calcium TID and vit D3 QD DVT ppx: SCDs/heparin CVA ppx: aspirin 325 mg QD GI ppx: Lansoprazole 30mg qd via NG Problem Qualifiers (1) Chronic respiratory failure: Qualified Codes: J96.11 - Chronic respiratory failure with hypoxia (2) UTI (urinary tract infection): Qualified Codes: N39.0 - Urinary tract infection, site not specified (3) Sacral decubitus ulcer: Qualified Codes: L89.154 - Pressure ulcer of sacral region, stage 4 (4) Type 2 diabetes mellitus: Qualified Codes: E11.9 - Type 2 diabetes mellitus without complications (5) Hip fracture: (6) Hypertension: Qualified Codes: I10 - Essential (primary) hypertension Jose R Soriano MD R1 Aug 18, 2017 10:22
[2017-08-18] MEDS: POLYETHYLENE GLYCOL 17 GM PKG PEG SCH (10:23)
[2017-08-18] MEDS: INSULIN DETEMIR 100 UNITS/ML VIAL SQ SCH ×2 (10:26→23:00)
--- NOTE | 2017-08-18 20:15 | HHI.PR ---
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 Small amount of trach secretions No new complaint Awake, holds bed rale with left hand Objective Vital Signs Vital Signs Date Time Temp Pulse Resp B/P (MAP) Pulse Ox O2 Delivery O2 Flow Rate FiO2 08/18/17 17:59 94 T-piece 6.00 35 08/18/17 16:00 96.6 74 17 123/59 (80) 94 08/18/17 12:00 98.8 80 17 145/79 (101) 93 08/18/17 10:00 94 Humidified 6.00 35 08/18/17 08:00 96.8 81 16 148/81 (103) 94 08/18/17 07:51 95 T-piece 35 08/18/17 07:51 95 T-piece 35 08/18/17 00:10 96.3 74 18 150/79 (102) 99 08/18/17 00:00 97.1 72 18 149/75 (99) 96 I/O 08/17/17 08/17/17 08/17/17 08/18/17 08/18/17 08/18/17 07:00 15:00 23:00 07:00 15:00 23:00 Intake Total 1364 ml 0 ml Output Total 800 ml 302 ml 600 ml Balance -800 ml 1364 ml -302 ml -600 ml Intake Oral 0 ml 0 ml Tube Feeding 744 ml Other 620 ml Output Urine Total 800 ml 300 ml 600 ml Stool Total 2 ml # Bowel Movements 1 4 Objective Remarks GENERAL: Elderly female,NAD SKIN: Warm and dry. HEAD: Normocephalic. EYES: No scleral icterus. No injection or drainage. NECK: Supple, trachea midline. No JVD or lymphadenopathy. CARDIOVASCULAR: Regular rate and rhythm without murmurs, gallops, or rubs. RESPIRATORY: Breath sounds equal bilaterally. No accessory muscle use. GASTROINTESTINAL: Abdomen soft, non-tender, nondistended. MUSCULOSKELETAL: No cyanosis, or edema. BACK: Nontender without obvious deformity. No CVA tenderness. A/P Assessment and Plan RF,S/P Trach CVA Pneumonia Pleural effusion PLAN: Aerosol nebs Supplement 02 Trach care TF Stable pulm Chris Rizo MD Aug 18, 2017 20:15
[2017-08-19] VITALS (7 sets, daily range): BP systolic 142–159; BP diastolic 68–83; PULSE 73–91; RESP 16–24; TEMP 95.5–97.5; O2SAT 91–100
[2017-08-19] MEDS: INSULIN ASPART SUPPLEMENTAL SCALE SQ SCH ×4 (02:13→17:23)
[2017-08-19] MEDS: ARTIFICIAL TEARS OPTH SOLN 15 ML BTL EACH EYE SCH ×3 (06:33→22:37)
[2017-08-19] MEDS: HEPARIN SODIUM - SQ 10,000 UNITS/ML VIAL SQ SCH ×3 (06:33→22:37)
[2017-08-19] MEDS: BENEPROTEIN POWDER 1 PACK G-TUBE SCH ×3 (09:00→17:24)
[2017-08-19] MEDS: SODIUM CHLORIDE 0.9% FLUSH 5 ML FLUSH IV FLUSH SCH ×2 (09:00→22:36)
[2017-08-19] MEDS: LISINOPRIL 10 MG TAB PO SCH ×2 (09:35→22:36)
[2017-08-19] MEDS: LANSOPRAZOLE SOLUTAB 30 MG TAB NG SCH (09:35)
[2017-08-19] MEDS: CHOLECALCIFEROL (VIT D3) 5000 UNIT CAP PO SCH (09:35)
[2017-08-19] MEDS: POLYETHYLENE GLYCOL 17 GM PKG PEG SCH (09:35)
[2017-08-19] MEDS: ASPIRIN 325 MG TAB DOBHOFF SCH (09:35)
[2017-08-19] MEDS: CALCIUM/VITAMIN D 250 MG/125 U TAB PO SCH ×3 (09:35→17:23)
[2017-08-19] MEDS: INSULIN DETEMIR 100 UNITS/ML VIAL SQ SCH ×2 (09:36→22:51)
[2017-08-19 11:39] LABS: HEMOGLOBIN 11.1 GM/DL (11.6-15.3); MEAN CELL VOLUME 98.4 FL (80.0-100.0); MEAN CORPUSCULAR HEMOGLOBIN 32.2 PG (27.0-34.0); MEAN CORPUSCULAR HGB CONC 32.7 % (32.0-36.0); MEAN PLATELET VOLUME 9.9 FL (7.0-11.0); PLATELET COUNT 278 TH/MM3 (150-450); RED BLOOD COUNT 3.45 MIL/MM3 (4.00-5.30); RED CELL DISTRIBUTION WIDTH 16.2 % (11.6-17.2); WHITE BLOOD COUNT 9.7 TH/MM3 (4.0-11.0)
[2017-08-19 12:05] LABS: CALCIUM 9.3 MG/DL (8.5-10.1); CREATININE 0.41 MG/DL (0.50-1.00)
--- NOTE | 2017-08-19 14:39 | HHI.FPPN ---
Subjective Remarks Patient seen and examined this morning. Sleeping when examined. Poorly responds to painful stimuli. No response to verbal stimuli. Afebrile overnight. Objective Vitals Vital Signs Date Time Temp Pulse Resp B/P (MAP) Pulse Ox O2 Delivery O2 Flow Rate FiO2 08/19/17 12:00 96.4 73 17 142/68 (92) 99 08/19/17 11:59 99 T-piece 6.00 35 08/19/17 11:59 99 T-piece 6.00 35 08/19/17 09:50 Trach Collar 6.00 28 08/19/17 08:00 96.4 85 18 159/80 (106) 97 08/19/17 04:43 96 T-piece 6.00 35 08/19/17 04:43 96 T-piece 35 08/19/17 00:00 95.5 91 16 144/83 (103) 91 08/18/17 20:51 90 Trach Collar 6.00 28 08/18/17 20:00 98.6 70 16 145/73 (97) 98 08/18/17 17:59 94 T-piece 6.00 35 08/18/17 16:00 96.6 74 17 123/59 (80) 94 I/O 08/18/17 08/18/17 08/18/17 08/19/17 08/19/17 08/19/17 07:00 15:00 23:00 07:00 15:00 23:00 Intake Total 0 ml 540 ml Output Total 600 ml 900 ml Balance -600 ml -360 ml Intake Oral 0 ml Tube Feeding 540 ml Output Urine Total 600 ml 900 ml # Bowel Movements 4 3 Result Diagram: 08/19/17 1114 08/19/17 1114 Objective Remarks GEN: Appears comfortable. NAD. Trach and PEG. HEAD: Normocephalic. Atraumatic. Right side facial droop. LUNGS: Decreased sounds in b/l bases, breathing spontaneously via T-tube. CARDIOVASCULAR: NRRR, normal S1/S2, no murmur GI/ABD: Soft, non-distended. No grimacing with palpation. Feeding tube insertion point with no redness, no distention NEURO: Not able to track. Flaccid paralysis on the right side. MUSC: SCDs on bilateral lower extremities. Pedal pulses present. SKIN: Sacral pressure ulcer extends from anus to coccyx. Stage II. EXTREMITIES: 1+ pitting edema up to distal tibia of right lower extremity. Trace lower extremity edema of left foot. Edema of right upper extremity improved from prior exam. Other: urinary catheter in place. Procedures ORIF 04/21/17 Intubation 04/30/17 Chest tube placement 05/07/17, removed 05/12/17 Trach placement 05/15/17 PEG tube placement 05/16/17 A/P Assessment and Plan 76 y/o female with HTN, DM admitted for DKA and hip fracture s/p large CVA after ORIF she is currently stable with her current treatment but has had no meaningful functional recovery and do not anticipate any further neurologic recovery from here on. Dr. Harper, Dr. Tran and case management had a long discussion with the daughter on 07/23 and the patient's daughter is still hopeful for full recovery for her mom in spite of her mom's state of health since her CVA. DW the daughter that it is our belief based on her clinical picture that she will not make any sort of meaningful recovery and will remain on the trach and PEG for the rest of her life. DW the daughter due to her status that the patient will likely continue to decline and continue to acquire infections associated with this type of clinical picture including UTI, PNA, and sepsis. DW the daughter to consider the QOL that her mother would have wanted. We recommend that this patient receive Hospice services as we would not anticipate her living longer than 6 months. The daughter does not want to consider this at this time and she is the sole decision maker for this patient. In that case, we will continue to treat the patient aggressively as issues arise and honor the families wishes. A one-hour long family meeting was held (07/26) with patient's daughter Dr. Meredith Carnes, Dr. Watts and patient's nurse to discuss patient's poor prognosis. We felt it was important to listen to daughter's perspective and address any questions or concerns she has about her mother's care. Patient goals of care were also discussed. Daughter still wants aggressive treatment. Daughter was informed that from our medical standpoint we do not anticipated any meaningful recovery from her mother's current baseline. Neither do we anticipate for mother to be able to get off PEG tube feeds and trach. However, we will continue to honor daughter's wishes and provide aggressive medical care. ID and pulmonology are actively following. Patient is currently being treated for MDR pseudomonas pna and pulmonology recommended bronchoscopy. Risk and benefits of the procedure were explained and discussed with daughter. The option for her mother not to have the bronchoscopy and to instead continue treatment with antibiotics was also discussed. She is currently unsure about the procedure. She was advised to take time to think about her decision keeping in mind what her mother's wishes would be. 08/02- Daughter at bedside. I had a long discussion with the daughter. Discussed with her about patient's unchanged status. She agreed to thoracentesis done on 08/05. She still wants aggressive care for her mother. Problem List: (1) Chronic respiratory failure ICD Codes: J96.10 - Chronic respiratory failure, unspecified whether with hypoxia or hypercapnia Plan: At this point, respiratory failure is chronic on T-tube Hospital Acquired PNA on 07/21 CXR 08/01 demonstrating bilateral airspace disease and effusions, R>L sputum culture positive for Multi drug resistant pseudomonas Blood cultures from 07/21 no growth (final) Repeat blood cultures from 07/25 no growth final Legionella and S pneumonia urine antigen negative -ID signed off at this time (Dr. Saleh), recommendations appreciated - Completed ceftolozane/ tazobactam (07/25-08/06) - Completed Colistin Neb 75 joseph q8hr (08/06-08/11) - Blood cultures 07/25 NGTD -Pulmonology following (Dr. Rizo), recommended bronchoscopy procedure, daughter refused - CXR 07/29 revealed diffuse bilateral airspace disease with interval worsening on the right, lasix 40mg IV given once for fluid overload - Repeat CXR revealed worsening b/l airspace disease and effusion, slightly worse on the left since 07/29. Right effusion and airspace diases remains larger than the left side. - US chest wall, moderate right pleural effusion. - Consulted IR for US guided thoracentesis, performed on 08/05 removing 1450 cc of clear yellow fluid - Pleural fluid culture from 08/05 with no growth after 72 hours Infection History Pseudomonas hospital-acquired pneumonia - resolved MSSA bacteremia - resolved Serratia/staph aureus pneumonia - resolved C glabrata UTI - resolved Citrobacter UTI - resolved Serratia/MSSA sputum VAP - resolved Antibiotic History Cefazolin: 04/21-04/22, 05/15-05/16 Cefepime: 04/30-05/04, 05/27-06/03 Ceftrioxone 05/26-05/27 Erythromycin 06/16-06/18, 06/19 Gentamicin 04/21 vancomycin 04/30-05/04, 06/21-06/23 Zosyn 07/21 - 07/25 Azithromycin 07/21 - 07/25 Fluconazole 04/29 - ; 07/26 ceftolozane/ tazobactam 07/25 - 08/06 Colistin nebs q8h 08/06 - 08/11 (2) Pleural effusion ICD Codes: J90 - Pleural effusion, not elsewhere classified Status: Acute Plan: US chest 08/01 demonstrating moderate right pleural effusion IR consulted for thoracentesis performed 08/05 Further plan as above (3) Acute CVA (cerebrovascular accident) ICD Codes: I63.9 - Cerebral infarction, unspecified Status: Chronic Plan: Neurologically stable, no improvement. Overall prognosis is poor. Persistent oxygen requirement See above note about meeting with Daughter on 07/23 and 07/26. Daughter still desires full code and aggressive care -Titrate oxygen via trach to maintain O2 saturation above 92% -Continue tube fees at 45ml/hr 24 hours per day thru peg Tube -Neurosurgery, neurology and palliative care have all been consulted in the past and agree with very poor prognosis with no meaningful neurologic recovery. History and imaging: Patient found minimally responsive with neurological deficits around 0820 04/24. Stat CT of head was ordered, which showed large left MCA infarct. Diffuse edema throughout the left MCA distribution, suggested completed infarct. This was discussed and was not a candidate for intracranial intervention. CT (04/30): Reduction in midline shift to 11mm. Unchanged large left MCA infarction. CT head (05/06) shows: Evolving large left-sided MCA territory infarct with minimally improved ians-dg-evohn subfalcine shift. No intercurrent hemorrhage or other acute abnormality. Echocardiogram- The left ventricular systolic function is low normal with an estimated ejection fraction in the range of 50-55%. Mild concentric left ventricular hypertrophy. Normal left ventricular size. Bwebm-ry-lset mitral valve regurgitation. Carotid Artery US- No hemodynamically significant carotid stenosis (4) UTI (urinary tract infection) ICD Codes: N39.0 - Urinary tract infection, site not specified Status: Resolved Plan: UCx on 07/15 positive for E coli Repeat UCx on 07/20 positive for C. Freundii UCx 07/24 grew only yeast - See above for antibiotic history and coverage (5) Sacral decubitus ulcer ICD Codes: L89.159 - Pressure ulcer of sacral region, unspecified stage Status: Chronic Plan: Patient with Stage II pressure injury over the coccyx -Wound care consult appreciated: 1. Please cleanse coccyx wound every 3 days and PRN for soiling. 2. Apply Calcium Alginate to open wound bed. 3. Secure with bordered gauze every 3 days and PRN for soiling. 4. Continue to turn patient every 2 hours or PRN for comfort. 5. Use one ultrasorb for moisture. Please use flat sheet for repositioning. (6) Anemia ICD Codes: D64.9 - Anemia, unspecified Status: Chronic Plan: s/p 1u of PRBC on 05/28/17. Hgb stable Hemoccult negative on 05/29 - monitor H&H periodically Stable 07/31 (7) Urinary retention ICD Codes: R33.9 - Retention of urine, unspecified Status: Chronic Plan: - Cath last changed 07/15, pt afebrile - Urine output WNL (8) Type 2 diabetes mellitus ICD Codes: E11.9 - Type 2 diabetes mellitus without complications Status: Chronic Plan: - BSBG ranging 120-222 past 24 hours, requiring 5 units total supplemental insulin -continue to monitor BSG -Decreased Levemir to 15 units q 12 due to BG range below goal. -Will continue to monitor -BS goal 140-180 -Discontinued SSI on 07/16 -AccuCheks QShift -Glucerna for PEG tube feedings @ 45 ml/hr -Glucagon 1 mg per PRN protocol for hypoglycemia BS <70mg/dL History Admitted for DKA which has now resolved. Hemoglobin A1C is 12.9. Diabetes Type II is uncontrolled. (9) Hip fracture ICD Codes: S72.009A - Fracture of unspecified part of neck of unspecified femur , initial encounter for closed fracture Status: Resolved Plan: S/P left hip reduction and intramedullary nail fixation on 04-21-17 -c/w Calcium/Vitamin D (10) Hypertension ICD Codes: I10 - Essential (primary) hypertension Status: Chronic Plan: -Antihypertensives to keep SBP<160, as per critical care recs -c/w clonidine 0.1mg Q6h PRN SBP >160 -c/w lisinopril 20mg Q12h po Echocardiogram 04/24 - EF 50 to 55%. Mild concentric LVH. (11) Fluids, Electrolytes, and Nutrition Status: Acute Plan: Fluids: through PEG tube Electrolyte: Continue to monitor periodically, replete as needed Nutrition: continuous Glucerna tube feeds and free water, pump at 45mls/hr, tolerating feeds well, no residual. Protein 1 pack TID. Supplements: calcium TID and vit D3 QD DVT ppx: SCDs/heparin CVA ppx: aspirin 325 mg QD GI ppx: Lansoprazole 30mg qd via NG Problem Qualifiers (1) Chronic respiratory failure: Qualified Codes: J96.11 - Chronic respiratory failure with hypoxia (2) UTI (urinary tract infection): Qualified Codes: N39.0 - Urinary tract infection, site not specified (3) Sacral decubitus ulcer: Qualified Codes: L89.154 - Pressure ulcer of sacral region, stage 4 (4) Type 2 diabetes mellitus: Qualified Codes: E11.9 - Type 2 diabetes mellitus without complications (5) Hip fracture: (6) Hypertension: Qualified Codes: I10 - Essential (primary) hypertension Jose R Soriano MD R1 Aug 19, 2017 14:39
--- NOTE | 2017-08-19 20:12 | HHI.PR ---
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 Small amount of trach secretions No new complaint Objective Vital Signs Vital Signs Date Time Temp Pulse Resp B/P (MAP) Pulse Ox O2 Delivery O2 Flow Rate FiO2 08/19/17 16:00 96.5 82 17 150/71 (97) 96 08/19/17 12:00 96.4 73 17 142/68 (92) 99 08/19/17 11:59 99 T-piece 6.00 35 08/19/17 11:59 99 T-piece 6.00 35 08/19/17 09:50 Trach Collar 6.00 28 08/19/17 08:00 96.4 85 18 159/80 (106) 97 08/19/17 04:43 96 T-piece 6.00 35 08/19/17 04:43 96 T-piece 35 08/19/17 00:00 95.5 91 16 144/83 (103) 91 08/18/17 20:51 90 Trach Collar 6.00 28 I/O 08/18/17 08/18/17 08/18/17 08/19/17 08/19/17 08/19/17 07:00 15:00 23:00 07:00 15:00 23:00 Intake Total 0 ml 540 ml 0 ml Output Total 600 ml 900 ml 475 ml Balance -600 ml -360 ml -475 ml Intake Oral 0 ml 0 ml Tube Feeding 540 ml Output Urine Total 600 ml 900 ml 475 ml # Bowel Movements 4 3 5 Result Diagram: 08/19/17 1114 08/19/17 1114 Objective Remarks GENERAL: Elderly female,NAD SKIN: Warm and dry. HEAD: Normocephalic. EYES: No scleral icterus. No injection or drainage. NECK: Supple, trachea midline. No JVD or lymphadenopathy. CARDIOVASCULAR: Regular rate and rhythm without murmurs, gallops, or rubs. RESPIRATORY: Breath sounds equal bilaterally. No accessory muscle use. GASTROINTESTINAL: Abdomen soft, non-tender, nondistended. MUSCULOSKELETAL: No cyanosis, or edema. BACK: Nontender without obvious deformity. No CVA tenderness. A/P Assessment and Plan RF,S/P Trach CVA Pneumonia Pleural effusion PLAN: Aerosol nebs Supplement 02 Trach care TF Stable pulm Chris Rizo MD Aug 19, 2017 20:12
[2017-08-20] VITALS (7 sets, daily range): BP systolic 129–160; BP diastolic 61–80; PULSE 63–81; RESP 18–22; TEMP 96.1–97.9; O2SAT 95–100
[2017-08-20] MEDS: INSULIN ASPART SUPPLEMENTAL SCALE SQ SCH ×4 (01:25→17:35)
[2017-08-20] MEDS: ARTIFICIAL TEARS OPTH SOLN 15 ML BTL EACH EYE SCH ×3 (06:42→21:46)
[2017-08-20] MEDS: HEPARIN SODIUM - SQ 10,000 UNITS/ML VIAL SQ SCH ×3 (06:42→21:46)
[2017-08-20] MEDS: SODIUM CHLORIDE 0.9% FLUSH 5 ML FLUSH IV FLUSH SCH (09:00)
[2017-08-20] MEDS: BENEPROTEIN POWDER 1 PACK G-TUBE SCH ×3 (09:00→17:36)
[2017-08-20] MEDS: POLYETHYLENE GLYCOL 17 GM PKG PEG SCH (09:18)
[2017-08-20] MEDS: CHOLECALCIFEROL (VIT D3) 5000 UNIT CAP PO SCH (09:18)
[2017-08-20] MEDS: LANSOPRAZOLE SOLUTAB 30 MG TAB NG SCH (09:18)
[2017-08-20] MEDS: ASPIRIN 325 MG TAB DOBHOFF SCH (09:19)
[2017-08-20] MEDS: CALCIUM/VITAMIN D 250 MG/125 U TAB PO SCH ×3 (09:19→17:36)
[2017-08-20] MEDS: INSULIN DETEMIR 100 UNITS/ML VIAL SQ SCH ×2 (09:19→21:45)
[2017-08-20] MEDS: LISINOPRIL 10 MG TAB PO SCH ×2 (09:19→21:45)
--- NOTE | 2017-08-20 10:06 | HHI.FPPN ---
Subjective Remarks Patient seen and examined this morning. No acute events overnight. Patient T- tube in place. Eyes opening with spontaneous movement. Squeezes hand with left side. Objective Vitals Vital Signs Date Time Temp Pulse Resp B/P (MAP) Pulse Ox O2 Delivery O2 Flow Rate FiO2 08/20/17 06:04 97 T-piece 6.00 35 08/20/17 00:00 97.0 71 22 129/64 (85) 98 08/19/17 22:00 100 Trach Collar 6.00 28 08/19/17 20:00 97.5 82 24 154/73 (100) 100 08/19/17 16:00 96.5 82 17 150/71 (97) 96 08/19/17 12:00 96.4 73 17 142/68 (92) 99 08/19/17 11:59 99 T-piece 6.00 35 08/19/17 11:59 99 T-piece 6.00 35 I/O 08/19/17 08/19/17 08/19/17 08/20/17 08/20/17 08/20/17 07:00 15:00 23:00 07:00 15:00 23:00 Intake Total 540 ml 0 ml 540 ml Output Total 900 ml 475 ml 700 ml Balance -360 ml -475 ml -160 ml Intake Oral 0 ml 0 ml Tube Feeding 540 ml 540 ml Output Urine Total 900 ml 475 ml 700 ml # Bowel Movements 3 5 1 Result Diagram: 08/19/17 1114 08/19/17 1114 Objective Remarks GEN: Appears comfortable. NAD. Trach and PEG. HEAD: Normocephalic. Atraumatic. Right side facial droop. LUNGS: Decreased sounds in b/l bases, breathing spontaneously via T-tube. CARDIOVASCULAR: NRRR, normal S1/S2, no murmur GI/ABD: Soft, non-distended. No grimacing with palpation. Feeding tube insertion point with no redness, no distention NEURO: Not able to track. Flaccid paralysis on the right side. MUSC: SCDs on bilateral lower extremities. Pedal pulses present. SKIN: Sacral pressure ulcer extends from anus to coccyx. Stage II. EXTREMITIES: 1+ pitting edema up to distal tibia of right lower extremity. Trace lower extremity edema of left foot. Other: urinary catheter in place. Procedures ORIF 04/21/17 Intubation 04/30/17 Chest tube placement 05/07/17, removed 05/12/17 Trach placement 05/15/17 PEG tube placement 05/16/17 A/P Assessment and Plan 76 y/o female with HTN, DM admitted for DKA and hip fracture s/p large CVA after ORIF she is currently stable with her current treatment but has had no meaningful functional recovery and do not anticipate any further neurologic recovery from here on. Dr. Harper, Dr. Tran and case management had a long discussion with the daughter on 07/23 and the patient's daughter is still hopeful for full recovery for her mom in spite of her mom's state of health since her CVA. DW the daughter that it is our belief based on her clinical picture that she will not make any sort of meaningful recovery and will remain on the trach and PEG for the rest of her life. DW the daughter due to her status that the patient will likely continue to decline and continue to acquire infections associated with this type of clinical picture including UTI, PNA, and sepsis. DW the daughter to consider the QOL that her mother would have wanted. We recommend that this patient receive Hospice services as we would not anticipate her living longer than 6 months. The daughter does not want to consider this at this time and she is the sole decision maker for this patient. In that case, we will continue to treat the patient aggressively as issues arise and honor the families wishes. A one-hour long family meeting was held (07/26) with patient's daughter Trice, Dr. Harper, Dr. Watts and patient's nurse to discuss patient's poor prognosis. We felt it was important to listen to daughter's perspective and address any questions or concerns she has about her mother's care. Patient goals of care were also discussed. Daughter still wants aggressive treatment. Daughter was informed that from our medical standpoint we do not anticipated any meaningful recovery from her mother's current baseline. Neither do we anticipate for mother to be able to get off PEG tube feeds and trach. However, we will continue to honor daughter's wishes and provide aggressive medical care. ID and pulmonology are actively following. Patient is currently being treated for MDR pseudomonas pna and pulmonology recommended bronchoscopy. Risk and benefits of the procedure were explained and discussed with daughter. The option for her mother not to have the bronchoscopy and to instead continue treatment with antibiotics was also discussed. She is currently unsure about the procedure. She was advised to take time to think about her decision keeping in mind what her mother's wishes would be. 08/02- Daughter at bedside. I had a long discussion with the daughter. Discussed with her about patient's unchanged status. She agreed to thoracentesis done on 08/05. She still wants aggressive care for her mother. Discharge Planning Pending placement Problem List: (1) Chronic respiratory failure ICD Codes: J96.10 - Chronic respiratory failure, unspecified whether with hypoxia or hypercapnia Plan: At this point, respiratory failure is chronic on T-tube Hospital Acquired PNA on 07/21 CXR 08/01 demonstrating bilateral airspace disease and effusions, R>L sputum culture positive for Multi drug resistant pseudomonas Blood cultures from 07/21 no growth (final) Repeat blood cultures from 07/25 no growth final Legionella and S pneumonia urine antigen negative -ID signed off at this time (Dr. Saleh), recommendations appreciated - Completed ceftolozane/ tazobactam (07/25-08/06) - Completed Colistin Neb 75 joseph q8hr (08/06-08/11) - Blood cultures 07/25 NGTD -Pulmonology following (Dr. Rizo), recommended bronchoscopy procedure, daughter refused - CXR 07/29 revealed diffuse bilateral airspace disease with interval worsening on the right, lasix 40mg IV given once for fluid overload - Repeat CXR revealed worsening b/l airspace disease and effusion, slightly worse on the left since 07/29. Right effusion and airspace diases remains larger than the left side. - US chest wall, moderate right pleural effusion. - Consulted IR for US guided thoracentesis, performed on 08/05 removing 1450 cc of clear yellow fluid - Pleural fluid culture from 08/05 with no growth after 72 hours Infection History Pseudomonas hospital-acquired pneumonia - resolved MSSA bacteremia - resolved Serratia/staph aureus pneumonia - resolved C glabrata UTI - resolved Citrobacter UTI - resolved Serratia/MSSA sputum VAP - resolved Antibiotic History Cefazolin: 04/21-04/22, 05/15-05/16 Cefepime: 04/30-05/04, 05/27-06/03 Ceftrioxone 05/26-05/27 Erythromycin 06/16-06/18, 06/19 Gentamicin 04/21 vancomycin 04/30-05/04, 06/21-06/23 Zosyn 07/21 - 07/25 Azithromycin 07/21 - 07/25 Fluconazole 04/29 - ; 07/26 ceftolozane/ tazobactam 07/25 - 08/06 Colistin nebs q8h 08/06 - 08/11 (2) Pleural effusion ICD Codes: J90 - Pleural effusion, not elsewhere classified Status: Acute Plan: US chest 08/01 demonstrating moderate right pleural effusion IR consulted for thoracentesis performed 08/05 Further plan as above (3) Acute CVA (cerebrovascular accident) ICD Codes: I63.9 - Cerebral infarction, unspecified Status: Chronic Plan: Neurologically stable, no improvement. Overall prognosis is poor. Persistent oxygen requirement See above note about meeting with Daughter on 07/23 and 07/26. Daughter still desires full code and aggressive care -Titrate oxygen via trach to maintain O2 saturation above 92% -Continue tube fees at 45ml/hr 24 hours per day thru peg Tube -Neurosurgery, neurology and palliative care have all been consulted in the past and agree with very poor prognosis with no meaningful neurologic recovery. History and imaging: Patient found minimally responsive with neurological deficits around 0820 04/24. Stat CT of head was ordered, which showed large left MCA infarct. Diffuse edema throughout the left MCA distribution, suggested completed infarct. This was discussed and was not a candidate for intracranial intervention. CT (04/30): Reduction in midline shift to 11mm. Unchanged large left MCA infarction. CT head (05/06) shows: Evolving large left-sided MCA territory infarct with minimally improved [id number] subfalcine shift. No intercurrent hemorrhage or other acute abnormality. Echocardiogram- The left ventricular systolic function is low normal with an estimated ejection fraction in the range of 50-55%. Mild concentric left ventricular hypertrophy. Normal left ventricular size. Oskob-sg-eigb mitral valve regurgitation. Carotid Artery US- No hemodynamically significant carotid stenosis (4) UTI (urinary tract infection) ICD Codes: N39.0 - Urinary tract infection, site not specified Status: Resolved Plan: UCx on 07/15 positive for E coli Repeat UCx on 07/20 positive for C. Freundii UCx 07/24 grew only yeast - See above for antibiotic history and coverage (5) Sacral decubitus ulcer ICD Codes: L89.159 - Pressure ulcer of sacral region, unspecified stage Status: Chronic Plan: Patient with Stage II pressure injury over the coccyx -Wound care consult appreciated: 1. Please cleanse coccyx wound every 3 days and PRN for soiling. 2. Apply Calcium Alginate to open wound bed. 3. Secure with bordered gauze every 3 days and PRN for soiling. 4. Continue to turn patient every 2 hours or PRN for comfort. 5. Use one ultrasorb for moisture. Please use flat sheet for repositioning. (6) Anemia ICD Codes: D64.9 - Anemia, unspecified Status: Chronic Plan: s/p 1u of PRBC on 05/28/17. Hgb stable Hemoccult negative on 05/29 - monitor H&H periodically Stable 07/31 (7) Urinary retention ICD Codes: R33.9 - Retention of urine, unspecified Status: Chronic Plan: - Cath last changed 07/15, pt afebrile - Urine output WNL (8) Type 2 diabetes mellitus ICD Codes: E11.9 - Type 2 diabetes mellitus without complications Status: Chronic Plan: - BSBG ranging 120-222 past 24 hours, requiring 5 units total supplemental insulin -continue to monitor BSG -Decreased Levemir to 15 units q 12 due to BG range below goal. -Will continue to monitor -BS goal 140-180 -Discontinued SSI on 07/16 -AccuCheks QShift -Glucerna for PEG tube feedings @ 45 ml/hr -Glucagon 1 mg per PRN protocol for hypoglycemia BS <70mg/dL History Admitted for DKA which has now resolved. Hemoglobin A1C is 12.9. Diabetes Type II is uncontrolled. (9) Hip fracture ICD Codes: S72.009A - Fracture of unspecified part of neck of unspecified femur , initial encounter for closed fracture Status: Resolved Plan: S/P left hip reduction and intramedullary nail fixation on 04-21-17 -c/w Calcium/Vitamin D (10) Hypertension ICD Codes: I10 - Essential (primary) hypertension Status: Chronic Plan: -Antihypertensives to keep SBP<160, as per critical care recs -c/w clonidine 0.1mg Q6h PRN SBP >160 -c/w lisinopril 20mg Q12h po Echocardiogram 04/24 - EF 50 to 55%. Mild concentric LVH. (11) Fluids, Electrolytes, and Nutrition Status: Acute Plan: Fluids: through PEG tube Electrolyte: Continue to monitor periodically, replete as needed Nutrition: continuous Glucerna tube feeds and free water, pump at 45mls/hr, tolerating feeds well, no residual. Protein 1 pack TID. Supplements: calcium TID and vit D3 QD DVT ppx: SCDs/heparin CVA ppx: aspirin 325 mg QD GI ppx: Lansoprazole 30mg qd via NG Problem Qualifiers (1) Chronic respiratory failure: Qualified Codes: J96.11 - Chronic respiratory failure with hypoxia (2) UTI (urinary tract infection): Qualified Codes: N39.0 - Urinary tract infection, site not specified (3) Sacral decubitus ulcer: Qualified Codes: L89.154 - Pressure ulcer of sacral region, stage 4 (4) Type 2 diabetes mellitus: Qualified Codes: E11.9 - Type 2 diabetes mellitus without complications (5) Hip fracture: (6) Hypertension: Qualified Codes: I10 - Essential (primary) hypertension Moisés Hanson MD, R2 Aug 20, 2017 10:06
--- NOTE | 2017-08-20 17:24 | HHI.PR ---
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 Small amount of trach secretions No new complaint Opens eyes Objective Vital Signs Vital Signs Date Time Temp Pulse Resp B/P (MAP) Pulse Ox O2 Delivery O2 Flow Rate FiO2 08/20/17 12:00 97.9 74 18 132/63 (86) 99 08/20/17 12:00 100 T-piece 6.00 35 08/20/17 08:00 96.7 76 20 151/80 (103) 95 08/20/17 06:04 97 T-piece 6.00 35 08/20/17 00:00 97.0 71 22 129/64 (85) 98 08/19/17 22:00 100 Trach Collar 6.00 28 08/19/17 20:00 97.5 82 24 154/73 (100) 100 I/O 08/19/17 08/19/17 08/19/17 08/20/17 08/20/17 08/20/17 06:59 14:59 22:59 06:59 14:59 22:59 Intake Total 540 ml 0 ml 540 ml Output Total 900 ml 475 ml 700 ml Balance -360 ml -475 ml -160 ml Intake Oral 0 ml 0 ml Tube Feeding 540 ml 540 ml Output Urine Total 900 ml 475 ml 700 ml # Bowel Movements 3 5 1 Result Diagram: 08/19/17 1114 08/19/17 1114 Objective Remarks GENERAL: Elderly female,NAD SKIN: Warm and dry. HEAD: Normocephalic. EYES: No scleral icterus. No injection or drainage. NECK: Supple, trachea midline. No JVD or lymphadenopathy. CARDIOVASCULAR: Regular rate and rhythm without murmurs, gallops, or rubs. RESPIRATORY: Breath sounds equal bilaterally. No accessory muscle use. GASTROINTESTINAL: Abdomen soft, non-tender, nondistended. MUSCULOSKELETAL: No cyanosis, or edema. BACK: Nontender without obvious deformity. No CVA tenderness. A/P Assessment and Plan RF,S/P Trach CVA Pneumonia Pleural effusion PLAN: Aerosol nebs Supplement 02 Trach care TF Stable pulm Chris Rizo MD Aug 20, 2017 17:24
[2017-08-21] VITALS: BP 127/69; PULSE 74; RESP 20; TEMP 96.9; O2SAT 100
[2017-08-21] MEDS: SODIUM CHLORIDE 0.9% FLUSH 5 ML FLUSH IV FLUSH SCH ×3 (01:47→21:00)
[2017-08-21] MEDS: HEPARIN SODIUM - SQ 10,000 UNITS/ML VIAL SQ SCH ×3 (04:59→22:18)
[2017-08-21] MEDS: ARTIFICIAL TEARS OPTH SOLN 15 ML BTL EACH EYE SCH ×3 (05:00→22:17)
[2017-08-21] MEDS: INSULIN ASPART SUPPLEMENTAL SCALE SQ SCH ×5 (05:25→22:47)
[2017-08-21 08:00] VITALS: BP 146/69; PULSE 77; RESP 18; TEMP 96.9; O2SAT 99
[2017-08-21] MEDS: ASPIRIN 325 MG TAB DOBHOFF SCH (08:29)
[2017-08-21] MEDS: LANSOPRAZOLE SOLUTAB 30 MG TAB NG SCH (08:29)
[2017-08-21] MEDS: LISINOPRIL 10 MG TAB PO SCH ×2 (08:29→22:20)
[2017-08-21] MEDS: BENEPROTEIN POWDER 1 PACK G-TUBE SCH ×3 (08:30→18:00)
[2017-08-21] MEDS: POLYETHYLENE GLYCOL 17 GM PKG PEG SCH (08:30)
[2017-08-21] MEDS: CALCIUM/VITAMIN D 250 MG/125 U TAB PO SCH ×3 (08:30→18:00)
[2017-08-21] MEDS: CHOLECALCIFEROL (VIT D3) 5000 UNIT CAP PO SCH (08:31)
[2017-08-21] MEDS: INSULIN DETEMIR 100 UNITS/ML VIAL SQ SCH ×2 (08:31→22:47)
--- NOTE | 2017-08-21 09:20 | HHI.FPPN ---
Subjective Remarks Patient seen and examined this morning. No acute events overnight. T tube in place. Poorly responsive to painful stimuli. Afebrile overnight. Objective Vitals Vital Signs Date Time Temp Pulse Resp B/P (MAP) Pulse Ox O2 Delivery O2 Flow Rate FiO2 08/21/17 08:00 96.9 77 18 146/69 (94) 99 08/21/17 00:00 96.9 74 20 127/69 (88) 100 08/20/17 20:14 100 T-piece 6.00 35 08/20/17 20:00 96.1 81 22 160/72 (101) 99 08/20/17 16:00 96.8 63 18 141/61 (87) 100 08/20/17 12:00 97.9 74 18 132/63 (86) 99 08/20/17 12:00 100 T-piece 6.00 35 I/O 08/20/17 08/20/17 08/20/17 08/21/17 08/21/17 08/21/17 07:00 15:00 23:00 07:00 15:00 23:00 Intake Total 540 ml 450 ml 420 ml Output Total 700 ml 350 ml 700 ml Balance -160 ml 100 ml -280 ml Intake Oral 0 ml 0 ml 0 ml Tube Feeding 540 ml 400 ml 360 ml Other 50 ml 60 ml Output Urine Total 700 ml 350 ml 700 ml # Bowel Movements 1 2 1 Result Diagram: 08/19/17 1114 08/19/17 1114 Objective Remarks GEN: Appears comfortable. NAD. Trach and PEG. HEAD: Normocephalic. Atraumatic. Right side facial droop. LUNGS: Decreased sounds in b/l bases, breathing spontaneously via T-tube. CARDIOVASCULAR: NRRR, normal S1/S2, no murmur GI/ABD: Soft, non-distended. No grimacing with palpation. Feeding tube insertion point with no redness, no distention NEURO: Not able to track. Flaccid paralysis on the right side. MUSC: SCDs on bilateral lower extremities. Pedal pulses present. SKIN: Sacral pressure ulcer extends from anus to coccyx. Stage II. EXTREMITIES: 1+ pitting edema up to distal tibia of right lower extremity. Trace lower extremity edema of left foot. Other: urinary catheter in place. Procedures ORIF 04/21/17 Intubation 04/30/17 Chest tube placement 05/07/17, removed 05/12/17 Trach placement 05/15/17 PEG tube placement 05/16/17 A/P Assessment and Plan 76 y/o female with HTN, DM admitted for DKA and hip fracture s/p large CVA after ORIF she is currently stable with her current treatment but has had no meaningful functional recovery and do not anticipate any further neurologic recovery from here on. Dr. Harper, Dr. Tran and case management had a long discussion with the daughter on 07/23 and the patient's daughter is still hopeful for full recovery for her mom in spite of her mom's state of health since her CVA. DW the daughter that it is our belief based on her clinical picture that she will not make any sort of meaningful recovery and will remain on the trach and PEG for the rest of her life. DW the daughter due to her status that the patient will likely continue to decline and continue to acquire infections associated with this type of clinical picture including UTI, PNA, and sepsis. DW the daughter to consider the QOL that her mother would have wanted. We recommend that this patient receive Hospice services as we would not anticipate her living longer than 6 months. The daughter does not want to consider this at this time and she is the sole decision maker for this patient. In that case, we will continue to treat the patient aggressively as issues arise and honor the families wishes. A one-hour long family meeting was held (07/26) with patient's daughter Trice, Dr. Harper, Dr. Watts and patient's nurse to discuss patient's poor prognosis. We felt it was important to listen to daughter's perspective and address any questions or concerns she has about her mother's care. Patient goals of care were also discussed. Daughter still wants aggressive treatment. Daughter was informed that from our medical standpoint we do not anticipated any meaningful recovery from her mother's current baseline. Neither do we anticipate for mother to be able to get off PEG tube feeds and trach. However, we will continue to honor daughter's wishes and provide aggressive medical care. ID and pulmonology are actively following. Patient is currently being treated for MDR pseudomonas pna and pulmonology recommended bronchoscopy. Risk and benefits of the procedure were explained and discussed with daughter. The option for her mother not to have the bronchoscopy and to instead continue treatment with antibiotics was also discussed. She is currently unsure about the procedure. She was advised to take time to think about her decision keeping in mind what her mother's wishes would be. 08/02- Daughter at bedside. I had a long discussion with the daughter. Discussed with her about patient's unchanged status. She agreed to thoracentesis done on 08/05. She still wants aggressive care for her mother. Discharge Planning Pending placement Problem List: (1) Chronic respiratory failure ICD Codes: J96.10 - Chronic respiratory failure, unspecified whether with hypoxia or hypercapnia Plan: At this point, respiratory failure is chronic on T-tube Hospital Acquired PNA on 07/21 CXR 08/01 demonstrating bilateral airspace disease and effusions, R>L sputum culture positive for Multi drug resistant pseudomonas Blood cultures from 07/21 no growth (final) Repeat blood cultures from 07/25 no growth final Legionella and S pneumonia urine antigen negative -ID signed off at this time (Dr. Saleh), recommendations appreciated - Completed ceftolozane/ tazobactam (07/25-08/06) - Completed Colistin Neb 75 joseph q8hr (08/06-08/11) - Blood cultures 07/25 NGTD -Pulmonology following (Dr. Rizo), recommended bronchoscopy procedure, daughter refused - CXR 07/29 revealed diffuse bilateral airspace disease with interval worsening on the right, lasix 40mg IV given once for fluid overload - Repeat CXR revealed worsening b/l airspace disease and effusion, slightly worse on the left since 07/29. Right effusion and airspace diases remains larger than the left side. - US chest wall, moderate right pleural effusion. - Consulted IR for US guided thoracentesis, performed on 08/05 removing 1450 cc of clear yellow fluid - Pleural fluid culture from 08/05 with no growth after 72 hours Infection History Pseudomonas hospital-acquired pneumonia - resolved MSSA bacteremia - resolved Serratia/staph aureus pneumonia - resolved C glabrata UTI - resolved Citrobacter UTI - resolved Serratia/MSSA sputum VAP - resolved Antibiotic History Cefazolin: 04/21-04/22, 05/15-05/16 Cefepime: 04/30-05/04, 05/27-06/03 Ceftrioxone 05/26-05/27 Erythromycin 06/16-06/18, 06/19 Gentamicin 04/21 vancomycin 04/30-05/04, 06/21-06/23 Zosyn 07/21 - 07/25 Azithromycin 07/21 - 07/25 Fluconazole 04/29 - ; 07/26 ceftolozane/ tazobactam 07/25 - 08/06 Colistin nebs q8h 08/06 - 08/11 (2) Pleural effusion ICD Codes: J90 - Pleural effusion, not elsewhere classified Status: Acute Plan: US chest 08/01 demonstrating moderate right pleural effusion IR consulted for thoracentesis performed 08/05 Further plan as above (3) Acute CVA (cerebrovascular accident) ICD Codes: I63.9 - Cerebral infarction, unspecified Status: Chronic Plan: Neurologically stable, no improvement. Overall prognosis is poor. Persistent oxygen requirement See above note about meeting with Daughter on 07/23 and 07/26. Daughter still desires full code and aggressive care -Titrate oxygen via trach to maintain O2 saturation above 92% -Continue tube fees at 45ml/hr 24 hours per day thru peg Tube -Neurosurgery, neurology and palliative care have all been consulted in the past and agree with very poor prognosis with no meaningful neurologic recovery. History and imaging: Patient found minimally responsive with neurological deficits around 0820 04/24. Stat CT of head was ordered, which showed large left MCA infarct. Diffuse edema throughout the left MCA distribution, suggested completed infarct. This was discussed and was not a candidate for intracranial intervention. CT (04/30): Reduction in midline shift to 11mm. Unchanged large left MCA infarction. CT head (05/06) shows: Evolving large left-sided MCA territory infarct with minimally improved idpo-fu-biciy subfalcine shift. No intercurrent hemorrhage or other acute abnormality. Echocardiogram- The left ventricular systolic function is low normal with an estimated ejection fraction in the range of 50-55%. Mild concentric left ventricular hypertrophy. Normal left ventricular size. Vtxpl-dw-swde mitral valve regurgitation. Carotid Artery US- No hemodynamically significant carotid stenosis (4) UTI (urinary tract infection) ICD Codes: N39.0 - Urinary tract infection, site not specified Status: Resolved Plan: UCx on 07/15 positive for E coli Repeat UCx on 07/20 positive for C. Freundii UCx 07/24 grew only yeast - See above for antibiotic history and coverage (5) Sacral decubitus ulcer ICD Codes: L89.159 - Pressure ulcer of sacral region, unspecified stage Status: Chronic Plan: Patient with Stage II pressure injury over the coccyx -Wound care consult appreciated: 1. Please cleanse coccyx wound every 3 days and PRN for soiling. 2. Apply Calcium Alginate to open wound bed. 3. Secure with bordered gauze every 3 days and PRN for soiling. 4. Continue to turn patient every 2 hours or PRN for comfort. 5. Use one ultrasorb for moisture. Please use flat sheet for repositioning. (6) Anemia ICD Codes: D64.9 - Anemia, unspecified Status: Chronic Plan: s/p 1u of PRBC on 05/28/17. Hgb stable Hemoccult negative on 05/29 - monitor H&H periodically Stable 07/31 (7) Urinary retention ICD Codes: R33.9 - Retention of urine, unspecified Status: Chronic Plan: - Cath last changed 07/15, pt afebrile - Urine output WNL (8) Type 2 diabetes mellitus ICD Codes: E11.9 - Type 2 diabetes mellitus without complications Status: Chronic Plan: - BSBG ranging 120-222 past 24 hours, requiring 5 units total supplemental insulin -continue to monitor BSG -Decreased Levemir to 15 units q 12 due to BG range below goal. -Will continue to monitor -BS goal 140-180 -Discontinued SSI on 07/16 -AccuCheks QShift -Glucerna for PEG tube feedings @ 45 ml/hr -Glucagon 1 mg per PRN protocol for hypoglycemia BS <70mg/dL History Admitted for DKA which has now resolved. Hemoglobin A1C is 12.9. Diabetes Type II is uncontrolled. (9) Hip fracture ICD Codes: S72.009A - Fracture of unspecified part of neck of unspecified femur , initial encounter for closed fracture Status: Resolved Plan: S/P left hip reduction and intramedullary nail fixation on 04-21-17 -c/w Calcium/Vitamin D (10) Hypertension ICD Codes: I10 - Essential (primary) hypertension Status: Chronic Plan: -Antihypertensives to keep SBP<160, as per critical care recs -c/w clonidine 0.1mg Q6h PRN SBP >160 -c/w lisinopril 20mg Q12h po Echocardiogram 04/24 - EF 50 to 55%. Mild concentric LVH. (11) Fluids, Electrolytes, and Nutrition Status: Acute Plan: Fluids: through PEG tube Electrolyte: Continue to monitor periodically, replete as needed Nutrition: continuous Glucerna tube feeds and free water, pump at 45mls/hr, tolerating feeds well, no residual. Protein 1 pack TID. Supplements: calcium TID and vit D3 QD DVT ppx: SCDs/heparin CVA ppx: aspirin 325 mg QD GI ppx: Lansoprazole 30mg qd via NG Problem Qualifiers (1) Chronic respiratory failure: Qualified Codes: J96.11 - Chronic respiratory failure with hypoxia (2) UTI (urinary tract infection): Qualified Codes: N39.0 - Urinary tract infection, site not specified (3) Sacral decubitus ulcer: Qualified Codes: L89.154 - Pressure ulcer of sacral region, stage 4 (4) Type 2 diabetes mellitus: Qualified Codes: E11.9 - Type 2 diabetes mellitus without complications (5) Hip fracture: (6) Hypertension: Qualified Codes: I10 - Essential (primary) hypertension Jose R Soriano MD R1 Aug 21, 2017 09:20
[2017-08-21 09:44] VITALS: O2SAT 99
[2017-08-21 12:00] VITALS: BP 141/63; PULSE 70; RESP 16; TEMP 96.8; O2SAT 99
[2017-08-21 16:00] VITALS: BP 172/85; PULSE 78; RESP 18; TEMP 97.4; O2SAT 100
--- NOTE | 2017-08-21 17:57 | HHI.PR ---
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 Small amount of trach secretions No new complaint Objective Vital Signs Vital Signs Date Time Temp Pulse Resp B/P (MAP) Pulse Ox O2 Delivery O2 Flow Rate FiO2 08/21/17 16:00 97.4 78 18 172/85 (114) 100 08/21/17 12:00 96.8 70 16 141/63 (89) 99 08/21/17 09:44 99 T-piece 6.00 35 08/21/17 08:00 96.9 77 18 146/69 (94) 99 08/21/17 00:00 96.9 74 20 127/69 (88) 100 08/20/17 20:14 100 T-piece 6.00 35 08/20/17 20:00 96.1 81 22 160/72 (101) 99 I/O 08/20/17 08/20/17 08/20/17 08/21/17 08/21/17 08/21/17 07:00 15:00 23:00 07:00 15:00 23:00 Intake Total 540 ml 450 ml 420 ml Output Total 700 ml 350 ml 700 ml Balance -160 ml 100 ml -280 ml Intake Oral 0 ml 0 ml 0 ml Tube Feeding 540 ml 400 ml 360 ml Other 50 ml 60 ml Output Urine Total 700 ml 350 ml 700 ml # Bowel Movements 1 2 1 Result Diagram: 08/19/17 1114 08/19/17 1114 Objective Remarks GENERAL: Elderly female,NAD SKIN: Warm and dry. HEAD: Normocephalic. EYES: No scleral icterus. No injection or drainage. NECK: Supple, trachea midline. No JVD or lymphadenopathy. CARDIOVASCULAR: Regular rate and rhythm without murmurs, gallops, or rubs. RESPIRATORY: Breath sounds equal bilaterally. No accessory muscle use. GASTROINTESTINAL: Abdomen soft, non-tender, nondistended. MUSCULOSKELETAL: No cyanosis, or edema. BACK: Nontender without obvious deformity. No CVA tenderness. A/P Assessment and Plan RF,S/P Trach CVA Pneumonia Pleural effusion PLAN: Aerosol nebs Supplement 02 Trach care TF Stable pulm Chris Rizo MD Aug 21, 2017 17:57
[2017-08-21 20:35] VITALS: O2SAT 97
[2017-08-22] VITALS (8 sets, daily range): BP systolic 144–182; BP diastolic 71–93; PULSE 73–87; RESP 17–20; TEMP 95.5–97.1; O2SAT 93–100
[2017-08-22] MEDS: INSULIN ASPART SUPPLEMENTAL SCALE SQ SCH ×3 (06:00→18:56)
[2017-08-22] MEDS: ARTIFICIAL TEARS OPTH SOLN 15 ML BTL EACH EYE SCH ×3 (06:00→21:16)
[2017-08-22] MEDS: HEPARIN SODIUM - SQ 10,000 UNITS/ML VIAL SQ SCH ×3 (06:00→21:14)
[2017-08-22] MEDS: BENEPROTEIN POWDER 1 PACK G-TUBE SCH ×3 (09:00→18:00)
[2017-08-22] MEDS: SODIUM CHLORIDE 0.9% FLUSH 5 ML FLUSH IV FLUSH SCH ×2 (09:00→21:15)
--- NOTE | 2017-08-22 09:34 | HHI.FPPN ---
Subjective Remarks Patient seen and examined this morning. Spontaneous movement, does not verbally respond to speech. Afebrile overnight. Patient's blood pressure had been elevated this morning. Spoke with patient's nurse who stated that the patient had received her daily blood pressure medication following this recorded value. It had since come down. She stated that the blood pressure would be remeasured soon and when necessary blood pressure medications would be given if necessary. Objective Vitals Vital Signs Date Time Temp Pulse Resp B/P (MAP) Pulse Ox O2 Delivery O2 Flow Rate FiO2 08/22/17 08:00 96.5 86 18 162/89 (113) 93 08/22/17 01:35 97.1 83 18 182/82 (115) 97 08/22/17 00:00 95.5 82 20 163/88 (113) 99 08/21/17 22:03 Trach Collar 6.00 28 08/21/17 20:35 97 T-piece 35 08/21/17 16:00 97.4 78 18 172/85 (114) 100 08/21/17 12:00 96.8 70 16 141/63 (89) 99 08/21/17 09:44 99 T-piece 6.00 35 I/O 08/21/17 08/21/17 08/21/17 08/22/17 08/22/17 08/22/17 07:00 15:00 23:00 07:00 15:00 23:00 Intake Total 420 ml 0 ml 0 ml Output Total 700 ml 800 ml 600 ml Balance -280 ml -800 ml -600 ml Intake Oral 0 ml 0 ml 0 ml Tube Feeding 360 ml Other 60 ml Output Urine Total 700 ml 800 ml 600 ml # Bowel Movements 1 2 Result Diagram: 08/19/17 1114 08/19/17 1114 Objective Remarks GEN: Appears comfortable. NAD. Trach and PEG. Lists to the left. HEAD: Normocephalic. Atraumatic. Right side facial droop. LUNGS: Decreased sounds in b/l bases, breathing spontaneously via T-tube. CARDIOVASCULAR: NRRR, normal S1/S2, no murmur GI/ABD: Soft, non-distended. No grimacing with palpation. Feeding tube insertion point with no redness, no distention NEURO: Not able to track. Flaccid paralysis on the right side. MUSC: SCDs on bilateral lower extremities. Pedal pulses present. SKIN: Sacral pressure ulcer extends from anus to coccyx. Stage II. EXTREMITIES: 1+ pitting edema up to distal tibia of right lower extremity. Trace lower extremity edema of left foot. Other: urinary catheter in place. Procedures ORIF 04/21/17 Intubation 04/30/17 Chest tube placement 05/07/17, removed 05/12/17 Trach placement 05/15/17 PEG tube placement 05/16/17 A/P Assessment and Plan 76 y/o female with HTN, DM admitted for DKA and hip fracture s/p large CVA after ORIF she is currently stable with her current treatment but has had no meaningful functional recovery and do not anticipate any further neurologic recovery from here on. Dr. Harper, Dr. Tran and case management had a long discussion with the daughter on 07/23 and the patient's daughter is still hopeful for full recovery for her mom in spite of her mom's state of health since her CVA. DW the daughter that it is our belief based on her clinical picture that she will not make any sort of meaningful recovery and will remain on the trach and PEG for the rest of her life. DW the daughter due to her status that the patient will likely continue to decline and continue to acquire infections associated with this type of clinical picture including UTI, PNA, and sepsis. DW the daughter to consider the QOL that her mother would have wanted. We recommend that this patient receive Hospice services as we would not anticipate her living longer than 6 months. The daughter does not want to consider this at this time and she is the sole decision maker for this patient. In that case, we will continue to treat the patient aggressively as issues arise and honor the families wishes. A one-hour long family meeting was held (07/26) with patient's daughter Trice, Dr. Harper, Dr. Watts and patient's nurse to discuss patient's poor prognosis. We felt it was important to listen to daughter's perspective and address any questions or concerns she has about her mother's care. Patient goals of care were also discussed. Daughter still wants aggressive treatment. Daughter was informed that from our medical standpoint we do not anticipated any meaningful recovery from her mother's current baseline. Neither do we anticipate for mother to be able to get off PEG tube feeds and trach. However, we will continue to honor daughter's wishes and provide aggressive medical care. ID and pulmonology are actively following. Patient is currently being treated for MDR pseudomonas pna and pulmonology recommended bronchoscopy. Risk and benefits of the procedure were explained and discussed with daughter. The option for her mother not to have the bronchoscopy and to instead continue treatment with antibiotics was also discussed. She is currently unsure about the procedure. She was advised to take time to think about her decision keeping in mind what her mother's wishes would be. 08/02- Daughter at bedside. I had a long discussion with the daughter. Discussed with her about patient's unchanged status. She agreed to thoracentesis done on 08/05. She still wants aggressive care for her mother. Discharge Planning Pending placement, corrections caseworkertelegraph office manager Ramses mendoza [id number] Problem List: (1) Chronic respiratory failure ICD Codes: J96.10 - Chronic respiratory failure, unspecified whether with hypoxia or hypercapnia Plan: At this point, respiratory failure is chronic on T-tube Hospital Acquired PNA on 07/21 CXR 08/01 demonstrating bilateral airspace disease and effusions, R>L sputum culture positive for Multi drug resistant pseudomonas Blood cultures from 07/21 no growth (final) Repeat blood cultures from 07/25 no growth final Legionella and S pneumonia urine antigen negative -ID signed off at this time (Dr. Saleh), recommendations appreciated - Completed ceftolozane/ tazobactam (07/25-08/06) - Completed Colistin Neb 75 joseph q8hr (08/06-08/11) - Blood cultures 07/25 NGTD -Pulmonology following (Dr. Rizo), recommended bronchoscopy procedure, daughter refused - CXR 07/29 revealed diffuse bilateral airspace disease with interval worsening on the right, lasix 40mg IV given once for fluid overload - Repeat CXR revealed worsening b/l airspace disease and effusion, slightly worse on the left since 07/29. Right effusion and airspace diases remains larger than the left side. - US chest wall, moderate right pleural effusion. - Consulted IR for US guided thoracentesis, performed on 08/05 removing 1450 cc of clear yellow fluid - Pleural fluid culture from 08/05 with no growth after 72 hours Infection History Pseudomonas hospital-acquired pneumonia - resolved MSSA bacteremia - resolved Serratia/staph aureus pneumonia - resolved C glabrata UTI - resolved Citrobacter UTI - resolved Serratia/MSSA sputum VAP - resolved Antibiotic History Cefazolin: 04/21-04/22, 05/15-05/16 Cefepime: 04/30-05/04, 05/27-06/03 Ceftrioxone 05/26-05/27 Erythromycin 06/16-06/18, 06/19 Gentamicin 04/21 vancomycin 04/30-05/04, 06/21-06/23 Zosyn 07/21 - 07/25 Azithromycin 07/21 - 07/25 Fluconazole 04/29 - ; 07/26 ceftolozane/ tazobactam 07/25 - 08/06 Colistin nebs q8h 08/06 - 08/11 (2) Pleural effusion ICD Codes: J90 - Pleural effusion, not elsewhere classified Status: Acute Plan: US chest 08/01 demonstrating moderate right pleural effusion IR consulted for thoracentesis performed 08/05 Further plan as above (3) Acute CVA (cerebrovascular accident) ICD Codes: I63.9 - Cerebral infarction, unspecified Status: Chronic Plan: Neurologically stable, no improvement. Overall prognosis is poor. Persistent oxygen requirement See above note about meeting with Daughter on 07/23 and 07/26. Daughter still desires full code and aggressive care -Titrate oxygen via trach to maintain O2 saturation above 92% -Continue tube fees at 45ml/hr 24 hours per day thru peg Tube -Neurosurgery, neurology and palliative care have all been consulted in the past and agree with very poor prognosis with no meaningful neurologic recovery. History and imaging: Patient found minimally responsive with neurological deficits around 0820 04/24. Stat CT of head was ordered, which showed large left MCA infarct. Diffuse edema throughout the left MCA distribution, suggested completed infarct. This was discussed and was not a candidate for intracranial intervention. CT (04/30): Reduction in midline shift to 11mm. Unchanged large left MCA infarction. CT head (05/06) shows: Evolving large left-sided MCA territory infarct with minimally improved [id number] subfalcine shift. No intercurrent hemorrhage or other acute abnormality. Echocardiogram- The left ventricular systolic function is low normal with an estimated ejection fraction in the range of 50-55%. Mild concentric left ventricular hypertrophy. Normal left ventricular size. Teiep-[id number] mitral valve regurgitation. Carotid Artery US- No hemodynamically significant carotid stenosis (4) UTI (urinary tract infection) ICD Codes: N39.0 - Urinary tract infection, site not specified Status: Resolved Plan: UCx on 07/15 positive for E coli Repeat UCx on 07/20 positive for C. Freundii UCx 07/24 grew only yeast - See above for antibiotic history and coverage (5) Sacral decubitus ulcer ICD Codes: L89.159 - Pressure ulcer of sacral region, unspecified stage Status: Chronic Plan: Patient with Stage II pressure injury over the coccyx -Wound care consult appreciated: 1. Please cleanse coccyx wound every 3 days and PRN for soiling. 2. Apply Calcium Alginate to open wound bed. 3. Secure with bordered gauze every 3 days and PRN for soiling. 4. Continue to turn patient every 2 hours or PRN for comfort. 5. Use one ultrasorb for moisture. Please use flat sheet for repositioning. (6) Anemia ICD Codes: D64.9 - Anemia, unspecified Status: Chronic Plan: s/p 1u of PRBC on 05/28/17. Hgb stable Hemoccult negative on 05/29 - monitor H&H periodically Stable 07/31 (7) Urinary retention ICD Codes: R33.9 - Retention of urine, unspecified Status: Chronic Plan: - Cath last changed 07/15, pt afebrile - Urine output WNL (8) Type 2 diabetes mellitus ICD Codes: E11.9 - Type 2 diabetes mellitus without complications Status: Chronic Plan: - BSBG ranging 120-222 past 24 hours, requiring 5 units total supplemental insulin -continue to monitor BSG -Decreased Levemir to 15 units q 12 due to BG range below goal. -Will continue to monitor -BS goal 140-180 -Discontinued SSI on 07/16 -AccuCheks QShift -Glucerna for PEG tube feedings @ 45 ml/hr -Glucagon 1 mg per PRN protocol for hypoglycemia BS <70mg/dL History Admitted for DKA which has now resolved. Hemoglobin A1C is 12.9. Diabetes Type II is uncontrolled. (9) Hip fracture ICD Codes: S72.009A - Fracture of unspecified part of neck of unspecified femur , initial encounter for closed fracture Status: Resolved Plan: S/P left hip reduction and intramedullary nail fixation on 04-21-17 -c/w Calcium/Vitamin D (10) Hypertension ICD Codes: I10 - Essential (primary) hypertension Status: Chronic Plan: -Antihypertensives to keep SBP<160, as per critical care recs -c/w clonidine 0.1mg Q6h PRN SBP >160 -c/w lisinopril 20mg Q12h po Echocardiogram 04/24 - EF 50 to 55%. Mild concentric LVH. (11) Fluids, Electrolytes, and Nutrition Status: Acute Plan: Fluids: through PEG tube Electrolyte: Continue to monitor periodically, replete as needed Nutrition: continuous Glucerna tube feeds and free water, pump at 45mls/hr, tolerating feeds well, no residual. Protein 1 pack TID. Supplements: calcium TID and vit D3 QD DVT ppx: SCDs/heparin CVA ppx: aspirin 325 mg QD GI ppx: Lansoprazole 30mg qd via NG Problem Qualifiers (1) Chronic respiratory failure: Qualified Codes: J96.11 - Chronic respiratory failure with hypoxia (2) UTI (urinary tract infection): Qualified Codes: N39.0 - Urinary tract infection, site not specified (3) Sacral decubitus ulcer: Qualified Codes: L89.154 - Pressure ulcer of sacral region, stage 4 (4) Type 2 diabetes mellitus: Qualified Codes: E11.9 - Type 2 diabetes mellitus without complications (5) Hip fracture: (6) Hypertension: Qualified Codes: I10 - Essential (primary) hypertension Jose R Soriano MD R1 Aug 22, 2017 09:33
[2017-08-22] MEDS: CALCIUM/VITAMIN D 250 MG/125 U TAB PO SCH ×3 (10:27→18:00)
[2017-08-22] MEDS: CHOLECALCIFEROL (VIT D3) 5000 UNIT CAP PO SCH (10:27)
[2017-08-22] MEDS: ASPIRIN 325 MG TAB DOBHOFF SCH (10:28)
[2017-08-22] MEDS: POLYETHYLENE GLYCOL 17 GM PKG PEG SCH (10:28)
[2017-08-22] MEDS: LISINOPRIL 10 MG TAB PO SCH ×2 (10:28→21:16)
[2017-08-22] MEDS: INSULIN DETEMIR 100 UNITS/ML VIAL SQ SCH ×2 (10:29→21:15)
[2017-08-22] MEDS: LANSOPRAZOLE SOLUTAB 30 MG TAB NG SCH (13:33)
--- NOTE | 2017-08-22 19:05 | HHI.PR ---
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 Small amount of trach secretions No new complaint opens eyes, holds bedrail with left hand Objective Vital Signs Vital Signs Date Time Temp Pulse Resp B/P (MAP) Pulse Ox O2 Delivery O2 Flow Rate FiO2 08/22/17 16:00 96.9 73 18 144/71 (95) 100 08/22/17 12:00 96.8 87 17 173/93 (119) 100 08/22/17 10:19 100 T-piece 5.00 35 08/22/17 10:18 98 08/22/17 10:18 100 T-piece 5.00 35 08/22/17 08:00 96.5 86 18 162/89 (113) 93 08/22/17 01:35 97.1 83 18 182/82 (115) 97 08/22/17 00:00 95.5 82 20 163/88 (113) 99 08/21/17 22:03 Trach Collar 6.00 28 08/21/17 20:35 97 T-piece 35 I/O 08/21/17 08/21/17 08/21/17 08/22/17 08/22/17 08/22/17 07:00 15:00 23:00 07:00 15:00 23:00 Intake Total 420 ml 0 ml 0 ml 0 ml Output Total 700 ml 800 ml 600 ml 450 ml Balance -280 ml -800 ml -600 ml -450 ml Intake Oral 0 ml 0 ml 0 ml 0 ml Tube Feeding 360 ml Other 60 ml Output Urine Total 700 ml 800 ml 600 ml 450 ml # Bowel Movements 1 2 1 Result Diagram: 08/19/17 1114 08/19/17 1114 Objective Remarks GENERAL: Elderly female,NAD SKIN: Warm and dry. HEAD: Normocephalic. EYES: No scleral icterus. No injection or drainage. NECK: Supple, trachea midline. No JVD or lymphadenopathy. CARDIOVASCULAR: Regular rate and rhythm without murmurs, gallops, or rubs. RESPIRATORY: Breath sounds equal bilaterally. No accessory muscle use. GASTROINTESTINAL: Abdomen soft, non-tender, nondistended. MUSCULOSKELETAL: No cyanosis, or edema. BACK: Nontender without obvious deformity. No CVA tenderness. A/P Assessment and Plan RF,S/P Trach CVA Pneumonia Pleural effusion PLAN: Aerosol nebs Supplement 02 Trach care TF Stable pulm Aneja,Chris Dev MD Aug 22, 2017 19:04
[2017-08-23] VITALS: BP 162/72; PULSE 69; RESP 18; TEMP 96; O2SAT 100
[2017-08-23] MEDS: cloNIDine HCL 0.1 MG TAB PO PRN ×2 (02:11→16:22)
[2017-08-23] MEDS: INSULIN ASPART SUPPLEMENTAL SCALE SQ SCH ×4 (06:00→17:50)
[2017-08-23] MEDS: HEPARIN SODIUM - SQ 10,000 UNITS/ML VIAL SQ SCH ×3 (06:14→19:55)
[2017-08-23] MEDS: ARTIFICIAL TEARS OPTH SOLN 15 ML BTL EACH EYE SCH ×3 (06:14→19:54)
[2017-08-23 08:00] VITALS: BP 168/75; PULSE 68; RESP 15; TEMP 96.5; O2SAT 99
[2017-08-23 08:47] VITALS: O2SAT 95
[2017-08-23] MEDS: POLYETHYLENE GLYCOL 17 GM PKG PEG SCH (10:14)
[2017-08-23] MEDS: CALCIUM/VITAMIN D 250 MG/125 U TAB PO SCH ×3 (10:15→17:50)
[2017-08-23] MEDS: LANSOPRAZOLE SOLUTAB 30 MG TAB NG SCH (10:15)
[2017-08-23] MEDS: ASPIRIN 325 MG TAB DOBHOFF SCH (10:15)
[2017-08-23] MEDS: CHOLECALCIFEROL (VIT D3) 5000 UNIT CAP PO SCH (10:15)
[2017-08-23] MEDS: LISINOPRIL 10 MG TAB PO SCH ×2 (10:16→19:54)
[2017-08-23] MEDS: INSULIN DETEMIR 100 UNITS/ML VIAL SQ SCH ×2 (10:16→19:54)
[2017-08-23] MEDS: SODIUM CHLORIDE 0.9% FLUSH 5 ML FLUSH IV FLUSH SCH ×2 (10:18→19:54)
[2017-08-23] MEDS: BENEPROTEIN POWDER 1 PACK G-TUBE SCH ×3 (10:19→17:50)
--- NOTE | 2017-08-23 11:18 | HHI.FPPN ---
Subjective Remarks Patient seen and examined this morning. Spontaneous movement, does not verbally respond to speech. Afebrile overnight. Patient's blood pressure had been elevated this morning. Spoke with nurse who stated one dose of the PRN clonidine was given. She also had noted a decreased heart rate to the 50s at one point, which has since rebounded to the high 60s. No other abnormalities noted by the nursing staff. Objective Vitals Vital Signs Date Time Temp Pulse Resp B/P (MAP) Pulse Ox O2 Delivery O2 Flow Rate FiO2 08/23/17 08:47 95 T-piece 35 08/23/17 08:00 96.5 68 15 168/75 (106) 99 08/23/17 00:00 96.0 69 18 162/72 (102) 100 08/22/17 21:12 Trach Collar 6.00 28 08/22/17 20:00 96.3 74 18 170/79 (109) 99 08/22/17 16:00 96.9 73 18 144/71 (95) 100 08/22/17 12:00 96.8 87 17 173/93 (119) 100 I/O 08/22/17 08/22/17 08/22/17 08/23/17 08/23/17 08/23/17 07:00 15:00 23:00 07:00 15:00 23:00 Intake Total 0 ml 0 ml Output Total 600 ml 450 ml 1500 ml Balance -600 ml -450 ml -1500 ml Intake Oral 0 ml 0 ml Output Urine Total 600 ml 450 ml 1500 ml # Bowel Movements 1 Result Diagram: 08/19/17 1114 08/19/17 1114 Objective Remarks GEN: Appears comfortable. NAD. Trach and PEG. Lists to the left. HEAD: Normocephalic. Atraumatic. Right side facial droop. LUNGS: Decreased sounds in b/l bases, breathing spontaneously via T-tube. CARDIOVASCULAR: NRRR, normal S1/S2, no murmur GI/ABD: Soft, non-distended. No grimacing with palpation. Feeding tube insertion point with no redness, no distention NEURO: Not able to track. Flaccid paralysis on the right side. MUSC: SCDs on bilateral lower extremities. Pedal pulses present. SKIN: Sacral pressure ulcer extends from anus to coccyx. Stage II. EXTREMITIES: 1+ pitting edema up to distal tibia of right lower extremity. Trace lower extremity edema of left foot. Other: urinary catheter in place. Procedures ORIF 04/21/17 Intubation 04/30/17 Chest tube placement 05/07/17, removed 05/12/17 Trach placement 05/15/17 PEG tube placement 05/16/17 A/P Assessment and Plan 76 y/o female with HTN, DM admitted for DKA and hip fracture s/p large CVA after ORIF she is currently stable with her current treatment but has had no meaningful functional recovery and do not anticipate any further neurologic recovery from here on. Dr. Harper, Dr. Tran and case management had a long discussion with the daughter on 07/23 and the patient's daughter is still hopeful for full recovery for her mom in spite of her mom's state of health since her CVA. DW the daughter that it is our belief based on her clinical picture that she will not make any sort of meaningful recovery and will remain on the trach and PEG for the rest of her life. DW the daughter due to her status that the patient will likely continue to decline and continue to acquire infections associated with this type of clinical picture including UTI, PNA, and sepsis. DW the daughter to consider the QOL that her mother would have wanted. We recommend that this patient receive Hospice services as we would not anticipate her living longer than 6 months. The daughter does not want to consider this at this time and she is the sole decision maker for this patient. In that case, we will continue to treat the patient aggressively as issues arise and honor the families wishes. A one-hour long family meeting was held (07/26) with patient's daughter Trice, Dr. Harper, Dr. Watts and patient's nurse to discuss patient's poor prognosis. We felt it was important to listen to daughter's perspective and address any questions or concerns she has about her mother's care. Patient goals of care were also discussed. Daughter still wants aggressive treatment. Daughter was informed that from our medical standpoint we do not anticipated any meaningful recovery from her mother's current baseline. Neither do we anticipate for mother to be able to get off PEG tube feeds and trach. However, we will continue to honor daughter's wishes and provide aggressive medical care. ID and pulmonology are actively following. Patient is currently being treated for MDR pseudomonas pna and pulmonology recommended bronchoscopy. Risk and benefits of the procedure were explained and discussed with daughter. The option for her mother not to have the bronchoscopy and to instead continue treatment with antibiotics was also discussed. She is currently unsure about the procedure. She was advised to take time to think about her decision keeping in mind what her mother's wishes would be. 08/02- Daughter at bedside. I had a long discussion with the daughter. Discussed with her about patient's unchanged status. She agreed to thoracentesis done on 08/05. She still wants aggressive care for her mother. Discharge Planning Pending placement, telephonic nurse case managerdigital manager Ramses mendoza [phone] Problem List: (1) Chronic respiratory failure ICD Codes: J96.10 - Chronic respiratory failure, unspecified whether with hypoxia or hypercapnia Plan: At this point, respiratory failure is chronic on T-tube Hospital Acquired PNA on 07/21 CXR 08/01 demonstrating bilateral airspace disease and effusions, R>L sputum culture positive for Multi drug resistant pseudomonas Blood cultures from 07/21 no growth (final) Repeat blood cultures from 07/25 no growth final Legionella and S pneumonia urine antigen negative -ID signed off at this time (Dr. Saleh), recommendations appreciated - Completed ceftolozane/ tazobactam (07/25-08/06) - Completed Colistin Neb 75 joseph q8hr (08/06-08/11) - Blood cultures 07/25 NGTD -Pulmonology following (Dr. Rizo), recommended bronchoscopy procedure, daughter refused - CXR 07/29 revealed diffuse bilateral airspace disease with interval worsening on the right, lasix 40mg IV given once for fluid overload - Repeat CXR revealed worsening b/l airspace disease and effusion, slightly worse on the left since 07/29. Right effusion and airspace diases remains larger than the left side. - US chest wall, moderate right pleural effusion. - Consulted IR for US guided thoracentesis, performed on 08/05 removing 1450 cc of clear yellow fluid - Pleural fluid culture from 08/05 with no growth after 72 hours Infection History Pseudomonas hospital-acquired pneumonia - resolved MSSA bacteremia - resolved Serratia/staph aureus pneumonia - resolved C glabrata UTI - resolved Citrobacter UTI - resolved Serratia/MSSA sputum VAP - resolved Antibiotic History Cefazolin: 04/21-04/22, 05/15-05/16 Cefepime: 04/30-05/04, 05/27-06/03 Ceftrioxone 05/26-05/27 Erythromycin 06/16-06/18, 06/19 Gentamicin 04/21 vancomycin 04/30-05/04, 06/21-06/23 Zosyn 07/21 - 07/25 Azithromycin 07/21 - 07/25 Fluconazole 04/29 - ; 07/26 ceftolozane/ tazobactam 07/25 - 08/06 Colistin nebs q8h 08/06 - 08/11 (2) Pleural effusion ICD Codes: J90 - Pleural effusion, not elsewhere classified Status: Acute Plan: US chest 08/01 demonstrating moderate right pleural effusion IR consulted for thoracentesis performed 08/05 Further plan as above (3) Acute CVA (cerebrovascular accident) ICD Codes: I63.9 - Cerebral infarction, unspecified Status: Chronic Plan: Neurologically stable, no improvement. Overall prognosis is poor. Persistent oxygen requirement See above note about meeting with Daughter on 07/23 and 07/26. Daughter still desires full code and aggressive care -Titrate oxygen via trach to maintain O2 saturation above 92% -Continue tube fees at 45ml/hr 24 hours per day thru peg Tube -Neurosurgery, neurology and palliative care have all been consulted in the past and agree with very poor prognosis with no meaningful neurologic recovery. History and imaging: Patient found minimally responsive with neurological deficits around 0820 04/24. Stat CT of head was ordered, which showed large left MCA infarct. Diffuse edema throughout the left MCA distribution, suggested completed infarct. This was discussed and was not a candidate for intracranial intervention. CT (04/30): Reduction in midline shift to 11mm. Unchanged large left MCA infarction. CT head (05/06) shows: Evolving large left-sided MCA territory infarct with minimally improved [id number] subfalcine shift. No intercurrent hemorrhage or other acute abnormality. Echocardiogram- The left ventricular systolic function is low normal with an estimated ejection fraction in the range of 50-55%. Mild concentric left ventricular hypertrophy. Normal left ventricular size. [id number]-[id number] mitral valve regurgitation. Carotid Artery US- No hemodynamically significant carotid stenosis (4) UTI (urinary tract infection) ICD Codes: N39.0 - Urinary tract infection, site not specified Status: Resolved Plan: UCx on 07/15 positive for E coli Repeat UCx on 07/20 positive for C. Freundii UCx 07/24 grew only yeast - See above for antibiotic history and coverage (5) Sacral decubitus ulcer ICD Codes: L89.159 - Pressure ulcer of sacral region, unspecified stage Status: Chronic Plan: Patient with Stage II pressure injury over the coccyx -Wound care consult appreciated: 1. Please cleanse coccyx wound every 3 days and PRN for soiling. 2. Apply Calcium Alginate to open wound bed. 3. Secure with bordered gauze every 3 days and PRN for soiling. 4. Continue to turn patient every 2 hours or PRN for comfort. 5. Use one ultrasorb for moisture. Please use flat sheet for repositioning. (6) Anemia ICD Codes: D64.9 - Anemia, unspecified Status: Chronic Plan: s/p 1u of PRBC on 05/28/17. Hgb stable Hemoccult negative on 05/29 - monitor H&H periodically Stable 07/31 (7) Urinary retention ICD Codes: R33.9 - Retention of urine, unspecified Status: Chronic Plan: - Cath last changed 07/15, pt afebrile - Urine output WNL (8) Type 2 diabetes mellitus ICD Codes: E11.9 - Type 2 diabetes mellitus without complications Status: Chronic Plan: - BSBG ranging 120-222 past 24 hours, requiring 5 units total supplemental insulin -continue to monitor BSG -Decreased Levemir to 15 units q 12 due to BG range below goal. -Will continue to monitor -BS goal 140-180 -Discontinued SSI on 07/16 -AccuCheks QShift -Glucerna for PEG tube feedings @ 45 ml/hr -Glucagon 1 mg per PRN protocol for hypoglycemia BS <70mg/dL History Admitted for DKA which has now resolved. Hemoglobin A1C is 12.9. Diabetes Type II is uncontrolled. (9) Hip fracture ICD Codes: S72.009A - Fracture of unspecified part of neck of unspecified femur , initial encounter for closed fracture Status: Resolved Plan: S/P left hip reduction and intramedullary nail fixation on 04-21-17 -c/w Calcium/Vitamin D (10) Hypertension ICD Codes: I10 - Essential (primary) hypertension Status: Chronic Plan: -Antihypertensives to keep SBP<160, as per critical care recs -c/w clonidine 0.1mg Q6h PRN SBP >160 -c/w lisinopril 30mg Q12h po (increased from 20 bid to 30 bid on 08/23/17) Echocardiogram 04/24 - EF 50 to 55%. Mild concentric LVH. (11) Fluids, Electrolytes, and Nutrition Status: Acute Plan: Fluids: through PEG tube Electrolyte: Continue to monitor periodically, replete as needed Nutrition: continuous Glucerna tube feeds and free water, pump at 45mls/hr, tolerating feeds well, no residual. Protein 1 pack TID. Supplements: calcium TID and vit D3 QD DVT ppx: SCDs/heparin CVA ppx: aspirin 325 mg QD GI ppx: Lansoprazole 30mg qd via NG Problem Qualifiers (1) Chronic respiratory failure: Qualified Codes: J96.11 - Chronic respiratory failure with hypoxia (2) UTI (urinary tract infection): Qualified Codes: N39.0 - Urinary tract infection, site not specified (3) Sacral decubitus ulcer: Qualified Codes: L89.154 - Pressure ulcer of sacral region, stage 4 (4) Type 2 diabetes mellitus: Qualified Codes: E11.9 - Type 2 diabetes mellitus without complications (5) Hip fracture: (6) Hypertension: Qualified Codes: I10 - Essential (primary) hypertension Jose R Soriano MD R1 Aug 23, 2017 11:18
[2017-08-23 12:00] VITALS: BP 156/75; PULSE 64; RESP 16; TEMP 97.5; O2SAT 96
[2017-08-23 16:00] VITALS: BP 170/83; PULSE 63; RESP 16; TEMP 97.4; O2SAT 97
--- NOTE | 2017-08-23 17:20 | HHI.PR ---
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 Small amount of trach secretions opens eyes, holds bedrail with left hand Objective Vital Signs Vital Signs Date Time Temp Pulse Resp B/P (MAP) Pulse Ox O2 Delivery O2 Flow Rate FiO2 08/23/17 16:00 97.4 63 16 170/83 (112) 97 08/23/17 12:00 97.5 64 16 156/75 (102) 96 08/23/17 10:19 T-Piece 6.00 28 08/23/17 08:47 95 T-piece 35 08/23/17 08:00 96.5 68 15 168/75 (106) 99 08/23/17 00:00 96.0 69 18 162/72 (102) 100 08/22/17 21:12 Trach Collar 6.00 28 08/22/17 20:00 96.3 74 18 170/79 (109) 99 I/O 08/22/17 08/22/17 08/22/17 08/23/17 08/23/17 08/23/17 07:00 15:00 23:00 07:00 15:00 23:00 Intake Total 0 ml 0 ml Output Total 600 ml 450 ml 1500 ml Balance -600 ml -450 ml -1500 ml Intake Oral 0 ml 0 ml Output Urine Total 600 ml 450 ml 1500 ml # Bowel Movements 1 Result Diagram: 08/19/17 1114 08/19/17 1114 Objective Remarks GENERAL: Elderly female,NAD SKIN: Warm and dry. HEAD: Normocephalic. EYES: No scleral icterus. No injection or drainage. NECK: Supple, trachea midline. No JVD or lymphadenopathy. CARDIOVASCULAR: Regular rate and rhythm without murmurs, gallops, or rubs. RESPIRATORY: Breath sounds equal bilaterally. No accessory muscle use. GASTROINTESTINAL: Abdomen soft, non-tender, nondistended. MUSCULOSKELETAL: No cyanosis, or edema. BACK: Nontender without obvious deformity. No CVA tenderness. A/P Assessment and Plan RF,S/P Trach CVA Pneumonia Pleural effusion PLAN: Aerosol nebs Supplement 02 Trach care TF Chris Rizo MD Aug 23, 2017 17:20
[2017-08-23 20:00] VITALS: BP 147/71; PULSE 69; RESP 20; TEMP 96.3; O2SAT 100
[2017-08-24] VITALS (7 sets, daily range): BP systolic 103–168; BP diastolic 49–76; PULSE 52–77; RESP 20–24; TEMP 96.8–97.8; O2SAT 96–100
[2017-08-24] MEDS: INSULIN ASPART SUPPLEMENTAL SCALE SQ SCH ×4 (00:24→17:24)
[2017-08-24] MEDS: HEPARIN SODIUM - SQ 10,000 UNITS/ML VIAL SQ SCH ×3 (05:56→21:01)
[2017-08-24] MEDS: ARTIFICIAL TEARS OPTH SOLN 15 ML BTL EACH EYE SCH ×3 (05:57→21:01)
--- NOTE | 2017-08-24 09:32 | HHI.FPPN ---
Subjective Remarks Patient seen and examined this morning. No acute events reported overnight. Patient with spontaneous left upper extremity movement. Stable neurological function. Objective Vitals Vital Signs Date Time Temp Pulse Resp B/P (MAP) Pulse Ox O2 Delivery O2 Flow Rate FiO2 08/24/17 08:00 96.9 68 24 125/60 (81) 96 08/24/17 00:00 97.8 52 22 103/49 (67) 100 08/23/17 20:00 96.3 69 20 147/71 (96) 100 08/23/17 20:00 98 T-Piece 6.00 28 08/23/17 16:00 97.4 63 16 170/83 (112) 97 08/23/17 12:00 97.5 64 16 156/75 (102) 96 08/23/17 10:19 T-Piece 6.00 28 I/O 08/23/17 08/23/17 08/23/17 08/24/17 08/24/17 08/24/17 07:00 15:00 23:00 07:00 15:00 23:00 Intake Total 570 ml 425 ml Output Total 1500 ml 400.0 ml 500 ml Balance -1500 ml 170.0 ml -75 ml Intake Oral 0 ml 0 ml Tube Feeding 470 ml 425 ml Tube Irrigant 100 ml Output Urine Total 1500 ml 400 ml 500 ml Tube Feeding Residual Discard 0 ml # Bowel Movements 1 3 Objective Remarks GEN: Appears comfortable. NAD. Trach and PEG. Lists to the left. HEAD: Right side facial droop. LUNGS: Decreased sounds in b/l bases, breathing spontaneously via T-tube. CARDIOVASCULAR: NRRR, normal S1/S2, no murmur GI/ABD: Soft, non-distended. No grimacing with palpation. Feeding tube insertion point with no redness, no distention NEURO: Not able to track. Flaccid paralysis on the right side. MUSC: SCDs on bilateral lower extremities. Pedal pulses present. SKIN: Sacral pressure ulcer extends from anus to coccyx. Stage II, not examined today EXTREMITIES: 1+ pitting edema up to distal tibia of right lower extremity. Trace lower extremity edema of left foot. Other: urinary catheter in place. Procedures ORIF 04/21/17 Intubation 04/30/17 Chest tube placement 05/07/17, removed 05/12/17 Trach placement 05/15/17 PEG tube placement 05/16/17 A/P Assessment and Plan 76 y/o female with HTN, DM admitted for DKA and hip fracture s/p large CVA after ORIF she is currently stable with her current treatment but has had no meaningful functional recovery and do not anticipate any further neurologic recovery from here on. Dr. Harper, Dr. Tran and case management had a long discussion with the daughter on 07/23 and the patient's daughter is still hopeful for full recovery for her mom in spite of her mom's state of health since her CVA. DW the daughter that it is our belief based on her clinical picture that she will not make any sort of meaningful recovery and will remain on the trach and PEG for the rest of her life. DW the daughter due to her status that the patient will likely continue to decline and continue to acquire infections associated with this type of clinical picture including UTI, PNA, and sepsis. DW the daughter to consider the QOL that her mother would have wanted. We recommend that this patient receive Hospice services as we would not anticipate her living longer than 6 months. The daughter does not want to consider this at this time and she is the sole decision maker for this patient. In that case, we will continue to treat the patient aggressively as issues arise and honor the families wishes. A one-hour long family meeting was held (07/26) with patient's daughter Trice, Dr. Harper, Dr. Watts and patient's nurse to discuss patient's poor prognosis. We felt it was important to listen to daughter's perspective and address any questions or concerns she has about her mother's care. Patient goals of care were also discussed. Daughter still wants aggressive treatment. Daughter was informed that from our medical standpoint we do not anticipated any meaningful recovery from her mother's current baseline. Neither do we anticipate for mother to be able to get off PEG tube feeds and trach. However, we will continue to honor daughter's wishes and provide aggressive medical care. ID and pulmonology are actively following. Patient is currently being treated for MDR pseudomonas pna and pulmonology recommended bronchoscopy. Risk and benefits of the procedure were explained and discussed with daughter. The option for her mother not to have the bronchoscopy and to instead continue treatment with antibiotics was also discussed. She is currently unsure about the procedure. She was advised to take time to think about her decision keeping in mind what her mother's wishes would be. 08/02- Daughter at bedside. I had a long discussion with the daughter. Discussed with her about patient's unchanged status. She agreed to thoracentesis done on 08/05. She still wants aggressive care for her mother. Discharge Planning Pending placement, patient case coordinatorrn field case manager Ramses mendoza [id number] Problem List: (1) Chronic respiratory failure ICD Codes: J96.10 - Chronic respiratory failure, unspecified whether with hypoxia or hypercapnia Plan: At this point, respiratory failure is chronic on T-tube Hospital Acquired PNA on 07/21 CXR 08/01 demonstrating bilateral airspace disease and effusions, R>L sputum culture positive for Multi drug resistant pseudomonas Blood cultures from 07/21 no growth (final) Repeat blood cultures from 07/25 no growth final Legionella and S pneumonia urine antigen negative -ID signed off at this time (Dr. Saleh), recommendations appreciated - Completed ceftolozane/ tazobactam (07/25-08/06) - Completed Colistin Neb 75 joseph q8hr (08/06-08/11) - Blood cultures 07/25 NGTD -Pulmonology following (Dr. Rizo), recommended bronchoscopy procedure, daughter refused - CXR 07/29 revealed diffuse bilateral airspace disease with interval worsening on the right, lasix 40mg IV given once for fluid overload - Repeat CXR revealed worsening b/l airspace disease and effusion, slightly worse on the left since 07/29. Right effusion and airspace diases remains larger than the left side. - US chest wall, moderate right pleural effusion. - Consulted IR for US guided thoracentesis, performed on 08/05 removing 1450 cc of clear yellow fluid - Pleural fluid culture from 08/05 with no growth after 72 hours Infection History Pseudomonas hospital-acquired pneumonia - resolved MSSA bacteremia - resolved Serratia/staph aureus pneumonia - resolved C glabrata UTI - resolved Citrobacter UTI - resolved Serratia/MSSA sputum VAP - resolved Antibiotic History Cefazolin: 04/21-04/22, 05/15-05/16 Cefepime: 04/30-05/04, 05/27-06/03 Ceftrioxone 05/26-05/27 Erythromycin 06/16-06/18, 06/19 Gentamicin 04/21 vancomycin 04/30-05/04, 06/21-06/23 Zosyn 07/21 - 07/25 Azithromycin 07/21 - 07/25 Fluconazole 04/29 - ; 07/26 ceftolozane/ tazobactam 07/25 - 08/06 Colistin nebs q8h 08/06 - 08/11 (2) Pleural effusion ICD Codes: J90 - Pleural effusion, not elsewhere classified Status: Acute Plan: US chest 08/01 demonstrating moderate right pleural effusion IR consulted for thoracentesis performed 08/05 Further plan as above (3) Acute CVA (cerebrovascular accident) ICD Codes: I63.9 - Cerebral infarction, unspecified Status: Chronic Plan: Neurologically stable, no improvement. Overall prognosis is poor. Persistent oxygen requirement See above note about meeting with Daughter on 07/23 and 07/26. Daughter still desires full code and aggressive care -Titrate oxygen via trach to maintain O2 saturation above 92% -Continue tube fees at 45ml/hr 24 hours per day thru peg Tube -Neurosurgery, neurology and palliative care have all been consulted in the past and agree with very poor prognosis with no meaningful neurologic recovery. History and imaging: Patient found minimally responsive with neurological deficits around 0820 04/24. Stat CT of head was ordered, which showed large left MCA infarct. Diffuse edema throughout the left MCA distribution, suggested completed infarct. This was discussed and was not a candidate for intracranial intervention. CT (04/30): Reduction in midline shift to 11mm. Unchanged large left MCA infarction. CT head (05/06) shows: Evolving large left-sided MCA territory infarct with minimally improved [id number] subfalcine shift. No intercurrent hemorrhage or other acute abnormality. Echocardiogram- The left ventricular systolic function is low normal with an estimated ejection fraction in the range of 50-55%. Mild concentric left ventricular hypertrophy. Normal left ventricular size. [id number] mitral valve regurgitation. Carotid Artery US- No hemodynamically significant carotid stenosis (4) UTI (urinary tract infection) ICD Codes: N39.0 - Urinary tract infection, site not specified Status: Resolved Plan: UCx on 07/15 positive for E coli Repeat UCx on 07/20 positive for C. Freundii UCx 07/24 grew only yeast - See above for antibiotic history and coverage (5) Sacral decubitus ulcer ICD Codes: L89.159 - Pressure ulcer of sacral region, unspecified stage Status: Chronic Plan: Patient with Stage II pressure injury over the coccyx -Wound care consult appreciated: 1. Please cleanse coccyx wound every 3 days and PRN for soiling. 2. Apply Calcium Alginate to open wound bed. 3. Secure with bordered gauze every 3 days and PRN for soiling. 4. Continue to turn patient every 2 hours or PRN for comfort. 5. Use one ultrasorb for moisture. Please use flat sheet for repositioning. (6) Anemia ICD Codes: D64.9 - Anemia, unspecified Status: Chronic Plan: s/p 1u of PRBC on 05/28/17. Hgb stable Hemoccult negative on 05/29 - monitor H&H periodically Stable 07/31 (7) Urinary retention ICD Codes: R33.9 - Retention of urine, unspecified Status: Chronic Plan: - Cath last changed 07/15, pt afebrile - Urine output WNL (8) Type 2 diabetes mellitus ICD Codes: E11.9 - Type 2 diabetes mellitus without complications Status: Chronic Plan: - BSBG ranging 120-222 past 24 hours, requiring 5 units total supplemental insulin -continue to monitor BSG -Decreased Levemir to 15 units q 12 due to BG range below goal. -Will continue to monitor -BS goal 140-180 -Discontinued SSI on 07/16 -AccuCheks QShift -Glucerna for PEG tube feedings @ 45 ml/hr -Glucagon 1 mg per PRN protocol for hypoglycemia BS <70mg/dL History Admitted for DKA which has now resolved. Hemoglobin A1C is 12.9. Diabetes Type II is uncontrolled. (9) Hip fracture ICD Codes: S72.009A - Fracture of unspecified part of neck of unspecified femur , initial encounter for closed fracture Status: Resolved Plan: S/P left hip reduction and intramedullary nail fixation on 04-21-17 -c/w Calcium/Vitamin D (10) Hypertension ICD Codes: I10 - Essential (primary) hypertension Status: Chronic Plan: -Antihypertensives to keep SBP<160, as per critical care recs -c/w clonidine 0.1mg Q6h PRN SBP >160 -c/w lisinopril 30mg Q12h po (increased from 20 bid to 30 bid on 08/23/17) Echocardiogram 04/24 - EF 50 to 55%. Mild concentric LVH. (11) Fluids, Electrolytes, and Nutrition Status: Acute Plan: Fluids: through PEG tube Electrolyte: Continue to monitor periodically, replete as needed Nutrition: continuous Glucerna tube feeds and free water, pump at 45mls/hr, tolerating feeds well, no residual. Protein 1 pack TID. Supplements: calcium TID and vit D3 QD DVT ppx: SCDs/heparin CVA ppx: aspirin 325 mg QD GI ppx: Lansoprazole 30mg qd via NG Problem Qualifiers (1) Chronic respiratory failure: Qualified Codes: J96.11 - Chronic respiratory failure with hypoxia (2) UTI (urinary tract infection): Qualified Codes: N39.0 - Urinary tract infection, site not specified (3) Sacral decubitus ulcer: Qualified Codes: L89.154 - Pressure ulcer of sacral region, stage 4 (4) Type 2 diabetes mellitus: Qualified Codes: E11.9 - Type 2 diabetes mellitus without complications (5) Hip fracture: (6) Hypertension: Qualified Codes: I10 - Essential (primary) hypertension Moisés Hanson MD, R2 Aug 24, 2017 09:32
[2017-08-24] MEDS: LANSOPRAZOLE SOLUTAB 30 MG TAB NG SCH (10:49)
[2017-08-24] MEDS: LISINOPRIL 10 MG TAB PO SCH ×2 (10:49→21:00)
[2017-08-24] MEDS: CHOLECALCIFEROL (VIT D3) 5000 UNIT CAP PO SCH (10:49)
[2017-08-24] MEDS: CALCIUM/VITAMIN D 250 MG/125 U TAB PO SCH ×3 (10:50→17:25)
[2017-08-24] MEDS: SODIUM CHLORIDE 0.9% FLUSH 5 ML FLUSH IV FLUSH SCH ×2 (10:50→21:00)
[2017-08-24] MEDS: INSULIN DETEMIR 100 UNITS/ML VIAL SQ SCH ×2 (10:50→21:01)
[2017-08-24] MEDS: ASPIRIN 325 MG TAB DOBHOFF SCH (10:50)
[2017-08-24] MEDS: POLYETHYLENE GLYCOL 17 GM PKG PEG SCH (10:50)
[2017-08-24] MEDS: BENEPROTEIN POWDER 1 PACK G-TUBE SCH ×3 (10:50→17:25)
--- NOTE | 2017-08-24 15:51 | HHI.PR ---
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 Small amount of trach secretions opens eyes, holds bedrail with left hand No new complaint Objective Vital Signs Vital Signs Date Time Temp Pulse Resp B/P (MAP) Pulse Ox O2 Delivery O2 Flow Rate FiO2 08/24/17 12:00 97.0 72 20 144/68 (93) 96 08/24/17 09:57 96 T-piece 5.00 35 08/24/17 08:00 96.9 68 24 125/60 (81) 96 08/24/17 00:00 97.8 52 22 103/49 (67) 100 08/23/17 20:00 96.3 69 20 147/71 (96) 100 08/23/17 20:00 98 T-Piece 6.00 28 08/23/17 16:00 97.4 63 16 170/83 (112) 97 I/O 08/23/17 08/23/17 08/23/17 08/24/17 08/24/17 08/24/17 07:00 15:00 23:00 07:00 15:00 23:00 Intake Total 570 ml 425 ml 0 ml Output Total 1500 ml 400.0 ml 500 ml 350 ml Balance -1500 ml 170.0 ml -75 ml -350 ml Intake Oral 0 ml 0 ml 0 ml Tube Feeding 470 ml 425 ml Tube Irrigant 100 ml Output Urine Total 1500 ml 400 ml 500 ml 350 ml Tube Feeding Residual Discard 0 ml # Bowel Movements 1 3 1 Objective Remarks GENERAL: Elderly female,NAD SKIN: Warm and dry. HEAD: Normocephalic. EYES: No scleral icterus. No injection or drainage. NECK: Supple, trachea midline. No JVD or lymphadenopathy. CARDIOVASCULAR: Regular rate and rhythm without murmurs, gallops, or rubs. RESPIRATORY: Breath sounds equal bilaterally. No accessory muscle use. GASTROINTESTINAL: Abdomen soft, non-tender, nondistended. MUSCULOSKELETAL: No cyanosis, or edema. BACK: Nontender without obvious deformity. No CVA tenderness. A/P Assessment and Plan RF,S/P Trach CVA Pneumonia Pleural effusion PLAN: Aerosol nebs Supplement 02 Trach care TF Chris Rizo MD Aug 24, 2017 15:51
[2017-08-25] VITALS: BP 153/69; PULSE 79; RESP 20; TEMP 95.4; O2SAT 92
[2017-08-25] MEDS: INSULIN ASPART SUPPLEMENTAL SCALE SQ SCH ×6 (00:23→22:41)
[2017-08-25] MEDS: HEPARIN SODIUM - SQ 10,000 UNITS/ML VIAL SQ SCH ×3 (05:49→22:36)
[2017-08-25] MEDS: ARTIFICIAL TEARS OPTH SOLN 15 ML BTL EACH EYE SCH ×3 (05:50→22:36)
[2017-08-25] MEDS: RESP: ALBUTEROL 2.5 MG/IPRATROPIUM 0.5 MG NEB (PRN) NEB (05:59)
[2017-08-25 07:55] VITALS: BP 163/74; PULSE 84; RESP 22; TEMP 97.1; O2SAT 100
[2017-08-25 08:56] VITALS: O2SAT 100
[2017-08-25] MEDS: SODIUM CHLORIDE 0.9% FLUSH 5 ML FLUSH IV FLUSH SCH ×2 (09:00→22:37)
[2017-08-25] MEDS: BENEPROTEIN POWDER 1 PACK G-TUBE SCH ×3 (09:00→17:20)
[2017-08-25] MEDS: INSULIN DETEMIR 100 UNITS/ML VIAL SQ SCH ×2 (09:21→22:36)
[2017-08-25] MEDS: LANSOPRAZOLE SOLUTAB 30 MG TAB NG SCH (09:23)
[2017-08-25] MEDS: CHOLECALCIFEROL (VIT D3) 5000 UNIT CAP PO SCH (09:23)
[2017-08-25] MEDS: CALCIUM/VITAMIN D 250 MG/125 U TAB PO SCH ×3 (09:23→17:20)
[2017-08-25] MEDS: ASPIRIN 325 MG TAB DOBHOFF SCH (09:24)
[2017-08-25] MEDS: POLYETHYLENE GLYCOL 17 GM PKG PEG SCH (09:24)
[2017-08-25] MEDS: LISINOPRIL 20 MG TAB PO SCH ×2 (09:24→22:36)
--- NOTE | 2017-08-25 10:03 | HHI.FPPN ---
Subjective Remarks Patient seen and examined this morning. Spontaneous movement, does not verbally respond to speech. Afebrile overnight. Objective Vitals Vital Signs Date Time Temp Pulse Resp B/P (MAP) Pulse Ox O2 Delivery O2 Flow Rate FiO2 08/25/17 08:56 100 T-piece 35 08/25/17 08:56 100 T-piece 35 08/25/17 07:55 97.1 84 22 163/74 (103) 100 08/25/17 00:00 95.4 79 20 153/69 (97) 92 08/24/17 22:20 96 T-piece 6.00 35 08/24/17 20:00 96.8 76 20 168/74 (105) 100 08/24/17 20:00 T-Piece 6.00 28 08/24/17 16:00 96.9 77 20 141/76 (97) 96 08/24/17 12:00 97.0 72 20 144/68 (93) 96 08/24/17 10:50 T-Piece 6.00 28 I/O 08/24/17 08/24/17 08/24/17 08/25/17 08/25/17 08/25/17 07:00 15:00 23:00 07:00 15:00 23:00 Intake Total 425 ml 0 ml 445 ml 0 ml 0 ml Output Total 500 ml 350 ml 850 ml Balance -75 ml -350 ml 445 ml -850 ml 0 ml Intake Oral 0 ml 0 ml 0 ml 0 ml Tube Feeding 425 ml 445 ml Output Urine Total 500 ml 350 ml 850 ml # Bowel Movements 3 1 2 Objective Remarks GEN: Appears comfortable. NAD. Trach and PEG. Lists to the left. HEAD: Right side facial droop. LUNGS: Decreased sounds in b/l bases, breathing spontaneously via T-tube. CARDIOVASCULAR: NRRR, normal S1/S2, no murmur GI/ABD: Soft, non-distended. No grimacing with palpation. Feeding tube insertion point with no redness, no distention NEURO: Not able to track. Flaccid paralysis on the right side. MUSC: SCDs on bilateral lower extremities. Pedal pulses present. SKIN: Sacral pressure ulcer extends from anus to coccyx. Stage II, not examined today EXTREMITIES: 1+ pitting edema up to distal tibia of right lower extremity. Trace lower extremity edema of left foot. Other: urinary catheter in place. Procedures ORIF 04/21/17 Intubation 04/30/17 Chest tube placement 05/07/17, removed 05/12/17 Trach placement 05/15/17 PEG tube placement 05/16/17 A/P Assessment and Plan 76 y/o female with HTN, DM admitted for DKA and hip fracture s/p large CVA after ORIF she is currently stable with her current treatment but has had no meaningful functional recovery and do not anticipate any further neurologic recovery from here on. Dr. Harper, Dr. Tran and case management had a long discussion with the daughter on 07/23 and the patient's daughter is still hopeful for full recovery for her mom in spite of her mom's state of health since her CVA. DW the daughter that it is our belief based on her clinical picture that she will not make any sort of meaningful recovery and will remain on the trach and PEG for the rest of her life. DW the daughter due to her status that the patient will likely continue to decline and continue to acquire infections associated with this type of clinical picture including UTI, PNA, and sepsis. DW the daughter to consider the QOL that her mother would have wanted. We recommend that this patient receive Hospice services as we would not anticipate her living longer than 6 months. The daughter does not want to consider this at this time and she is the sole decision maker for this patient. In that case, we will continue to treat the patient aggressively as issues arise and honor the families wishes. A one-hour long family meeting was held (07/26) with patient's daughter Trice, Dr. Harper, Dr. Watts and patient's nurse to discuss patient's poor prognosis. We felt it was important to listen to daughter's perspective and address any questions or concerns she has about her mother's care. Patient goals of care were also discussed. Daughter still wants aggressive treatment. Daughter was informed that from our medical standpoint we do not anticipated any meaningful recovery from her mother's current baseline. Neither do we anticipate for mother to be able to get off PEG tube feeds and trach. However, we will continue to honor daughter's wishes and provide aggressive medical care. ID and pulmonology are actively following. Patient is currently being treated for MDR pseudomonas pna and pulmonology recommended bronchoscopy. Risk and benefits of the procedure were explained and discussed with daughter. The option for her mother not to have the bronchoscopy and to instead continue treatment with antibiotics was also discussed. She is currently unsure about the procedure. She was advised to take time to think about her decision keeping in mind what her mother's wishes would be. 08/02- Daughter at bedside. I had a long discussion with the daughter. Discussed with her about patient's unchanged status. She agreed to thoracentesis done on 08/05. She still wants aggressive care for her mother. Discharge Planning Pending placement, major case detectiveoperations manager Ramses mendoza [id number] Problem List: (1) Chronic respiratory failure ICD Codes: J96.10 - Chronic respiratory failure, unspecified whether with hypoxia or hypercapnia Plan: At this point, respiratory failure is chronic on T-tube Hospital Acquired PNA on 07/21 CXR 08/01 demonstrating bilateral airspace disease and effusions, R>L sputum culture positive for Multi drug resistant pseudomonas Blood cultures from 07/21 no growth (final) Repeat blood cultures from 07/25 no growth final Legionella and S pneumonia urine antigen negative -ID signed off at this time (Dr. Saleh), recommendations appreciated - Completed ceftolozane/ tazobactam (07/25-08/06) - Completed Colistin Neb 75 joseph q8hr (08/06-08/11) - Blood cultures 07/25 NGTD -Pulmonology following (Dr. Rizo), recommended bronchoscopy procedure, daughter refused - CXR 07/29 revealed diffuse bilateral airspace disease with interval worsening on the right, lasix 40mg IV given once for fluid overload - Repeat CXR revealed worsening b/l airspace disease and effusion, slightly worse on the left since 07/29. Right effusion and airspace diases remains larger than the left side. - US chest wall, moderate right pleural effusion. - Consulted IR for US guided thoracentesis, performed on 08/05 removing 1450 cc of clear yellow fluid - Pleural fluid culture from 08/05 with no growth after 72 hours Infection History Pseudomonas hospital-acquired pneumonia - resolved MSSA bacteremia - resolved Serratia/staph aureus pneumonia - resolved C glabrata UTI - resolved Citrobacter UTI - resolved Serratia/MSSA sputum VAP - resolved Antibiotic History Cefazolin: 04/21-04/22, 05/15-05/16 Cefepime: 04/30-05/04, 05/27-06/03 Ceftrioxone 05/26-05/27 Erythromycin 06/16-06/18, 06/19 Gentamicin 04/21 vancomycin 04/30-05/04, 06/21-06/23 Zosyn 07/21 - 07/25 Azithromycin 07/21 - 07/25 Fluconazole 04/29 - ; 07/26 ceftolozane/ tazobactam 07/25 - 08/06 Colistin nebs q8h 08/06 - 08/11 (2) Pleural effusion ICD Codes: J90 - Pleural effusion, not elsewhere classified Status: Acute Plan: US chest 08/01 demonstrating moderate right pleural effusion IR consulted for thoracentesis performed 08/05 Further plan as above (3) Acute CVA (cerebrovascular accident) ICD Codes: I63.9 - Cerebral infarction, unspecified Status: Chronic Plan: Neurologically stable, no improvement. Overall prognosis is poor. Persistent oxygen requirement See above note about meeting with Daughter on 07/23 and 07/26. Daughter still desires full code and aggressive care -Titrate oxygen via trach to maintain O2 saturation above 92% -Continue tube fees at 45ml/hr 24 hours per day thru peg Tube -Neurosurgery, neurology and palliative care have all been consulted in the past and agree with very poor prognosis with no meaningful neurologic recovery. History and imaging: Patient found minimally responsive with neurological deficits around 0820 04/24. Stat CT of head was ordered, which showed large left MCA infarct. Diffuse edema throughout the left MCA distribution, suggested completed infarct. This was discussed and was not a candidate for intracranial intervention. CT (04/30): Reduction in midline shift to 11mm. Unchanged large left MCA infarction. CT head (05/06) shows: Evolving large left-sided MCA territory infarct with minimally improved atsm-qo-tonat subfalcine shift. No intercurrent hemorrhage or other acute abnormality. Echocardiogram- The left ventricular systolic function is low normal with an estimated ejection fraction in the range of 50-55%. Mild concentric left ventricular hypertrophy. Normal left ventricular size. [id number] mitral valve regurgitation. Carotid Artery US- No hemodynamically significant carotid stenosis (4) UTI (urinary tract infection) ICD Codes: N39.0 - Urinary tract infection, site not specified Status: Resolved Plan: UCx on 07/15 positive for E coli Repeat UCx on 07/20 positive for C. Freundii UCx 07/24 grew only yeast - See above for antibiotic history and coverage (5) Sacral decubitus ulcer ICD Codes: L89.159 - Pressure ulcer of sacral region, unspecified stage Status: Chronic Plan: Patient with Stage II pressure injury over the coccyx -Wound care consult appreciated: 1. Please cleanse coccyx wound every 3 days and PRN for soiling. 2. Apply Calcium Alginate to open wound bed. 3. Secure with bordered gauze every 3 days and PRN for soiling. 4. Continue to turn patient every 2 hours or PRN for comfort. 5. Use one ultrasorb for moisture. Please use flat sheet for repositioning. (6) Anemia ICD Codes: D64.9 - Anemia, unspecified Status: Chronic Plan: s/p 1u of PRBC on 05/28/17. Hgb stable Hemoccult negative on 05/29 - monitor H&H periodically Stable 07/31 (7) Urinary retention ICD Codes: R33.9 - Retention of urine, unspecified Status: Chronic Plan: - Cath last changed 07/15, pt afebrile - Urine output WNL (8) Type 2 diabetes mellitus ICD Codes: E11.9 - Type 2 diabetes mellitus without complications Status: Chronic Plan: - BSBG ranging 120-222 past 24 hours, requiring 5 units total supplemental insulin -continue to monitor BSG -Decreased Levemir to 15 units q 12 due to BG range below goal. -Will continue to monitor -BS goal 140-180 -Discontinued SSI on 07/16 -AccuCheks QShift -Glucerna for PEG tube feedings @ 45 ml/hr -Glucagon 1 mg per PRN protocol for hypoglycemia BS <70mg/dL History Admitted for DKA which has now resolved. Hemoglobin A1C is 12.9. Diabetes Type II is uncontrolled. (9) Hip fracture ICD Codes: S72.009A - Fracture of unspecified part of neck of unspecified femur , initial encounter for closed fracture Status: Resolved Plan: S/P left hip reduction and intramedullary nail fixation on 04-21-17 -c/w Calcium/Vitamin D (10) Hypertension ICD Codes: I10 - Essential (primary) hypertension Status: Chronic Plan: -Antihypertensives to keep SBP<160, as per critical care recs -c/w clonidine 0.1mg Q6h PRN SBP >160 -c/w lisinopril 40mg Q12h po (increased from 30 bid to 430 bid on 08/25/17) Echocardiogram 04/24 - EF 50 to 55%. Mild concentric LVH. (11) Fluids, Electrolytes, and Nutrition Status: Acute Plan: Fluids: through PEG tube Electrolyte: Continue to monitor periodically, replete as needed Nutrition: continuous Glucerna tube feeds and free water, pump at 45mls/hr, tolerating feeds well, no residual. Protein 1 pack TID. Supplements: calcium TID and vit D3 QD DVT ppx: SCDs/heparin CVA ppx: aspirin 325 mg QD GI ppx: Lansoprazole 30mg qd via NG Problem Qualifiers (1) Chronic respiratory failure: Qualified Codes: J96.11 - Chronic respiratory failure with hypoxia (2) UTI (urinary tract infection): Qualified Codes: N39.0 - Urinary tract infection, site not specified (3) Sacral decubitus ulcer: Qualified Codes: L89.154 - Pressure ulcer of sacral region, stage 4 (4) Type 2 diabetes mellitus: Qualified Codes: E11.9 - Type 2 diabetes mellitus without complications (5) Hip fracture: (6) Hypertension: Qualified Codes: I10 - Essential (primary) hypertension Jose R Soriano MD R1 Aug 25, 2017 10:03
[2017-08-25 12:00] VITALS: BP 101/58; PULSE 82; RESP 19; TEMP 96.9; O2SAT 96
--- NOTE | 2017-08-25 14:43 | HHI.PR ---
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 opens eyes, holds bedrail with left hand No new complaint Objective Vital Signs Vital Signs Date Time Temp Pulse Resp B/P (MAP) Pulse Ox O2 Delivery O2 Flow Rate FiO2 08/25/17 12:00 96.9 82 19 101/58 (72) 96 08/25/17 09:00 98 Trach Collar 6.00 28 T-Piece Humidified 08/25/17 08:56 100 T-piece 35 08/25/17 08:56 100 T-piece 35 08/25/17 07:55 97.1 84 22 163/74 (103) 100 08/25/17 00:00 95.4 79 20 153/69 (97) 92 08/24/17 22:20 96 T-piece 6.00 35 08/24/17 20:00 96.8 76 20 168/74 (105) 100 08/24/17 20:00 T-Piece 6.00 28 08/24/17 16:00 96.9 77 20 141/76 (97) 96 I/O 08/24/17 08/24/17 08/24/17 08/25/17 08/25/17 08/25/17 07:00 15:00 23:00 07:00 15:00 23:00 Intake Total 425 ml 0 ml 445 ml 0 ml 0 ml Output Total 500 ml 350 ml 850 ml Balance -75 ml -350 ml 445 ml -850 ml 0 ml Intake Oral 0 ml 0 ml 0 ml 0 ml Tube Feeding 425 ml 445 ml Output Urine Total 500 ml 350 ml 850 ml # Bowel Movements 3 1 2 Objective Remarks GENERAL: Elderly female,NAD SKIN: Warm and dry. HEAD: Normocephalic. EYES: No scleral icterus. No injection or drainage. NECK: Supple, trachea midline. No JVD or lymphadenopathy. CARDIOVASCULAR: Regular rate and rhythm without murmurs, gallops, or rubs. RESPIRATORY: Breath sounds equal bilaterally. No accessory muscle use. GASTROINTESTINAL: Abdomen soft, non-tender, nondistended. MUSCULOSKELETAL: No cyanosis, or edema. BACK: Nontender without obvious deformity. No CVA tenderness. A/P Assessment and Plan RF,S/P Trach CVA Pneumonia Pleural effusion PLAN: Aerosol nebs Supplement 02 Trach care TF Chris Rizo MD Aug 25, 2017 14:43
[2017-08-25 16:00] VITALS: BP 141/68; PULSE 64; RESP 19; TEMP 97.8; O2SAT 96
[2017-08-25 20:15] VITALS: BP 131/63; PULSE 68; RESP 17; TEMP 97.1; O2SAT 97
[2017-08-26] VITALS (8 sets, daily range): BP systolic 140–184; BP diastolic 67–91; PULSE 75–91; RESP 17–21; TEMP 96–97.8; O2SAT 97–100
[2017-08-26] MEDS: HEPARIN SODIUM - SQ 10,000 UNITS/ML VIAL SQ SCH ×3 (05:26→21:42)
[2017-08-26] MEDS: ARTIFICIAL TEARS OPTH SOLN 15 ML BTL EACH EYE SCH ×3 (05:26→21:44)
[2017-08-26] MEDS: INSULIN ASPART SUPPLEMENTAL SCALE SQ SCH ×3 (05:32→17:33)
[2017-08-26] MEDS: INSULIN DETEMIR 100 UNITS/ML VIAL SQ SCH ×2 (07:40→21:43)
[2017-08-26] MEDS: ASPIRIN 325 MG TAB DOBHOFF SCH (07:41)
[2017-08-26] MEDS: CALCIUM/VITAMIN D 250 MG/125 U TAB PO SCH ×3 (07:41→17:17)
[2017-08-26] MEDS: CHOLECALCIFEROL (VIT D3) 5000 UNIT CAP PO SCH (07:41)
[2017-08-26] MEDS: LANSOPRAZOLE SOLUTAB 30 MG TAB NG SCH (07:42)
[2017-08-26] MEDS: LISINOPRIL 20 MG TAB PO SCH ×2 (07:42→21:41)
[2017-08-26] MEDS: SODIUM CHLORIDE 0.9% FLUSH 5 ML FLUSH IV FLUSH SCH ×2 (07:48→21:00)
[2017-08-26] MEDS: POLYETHYLENE GLYCOL 17 GM PKG PEG SCH (07:48)
[2017-08-26] MEDS: BENEPROTEIN POWDER 1 PACK G-TUBE SCH ×3 (07:48→17:17)
--- NOTE | 2017-08-26 09:59 | HHI.FPPN ---
Subjective Remarks Patient seen and examined this morning. No acute events overnight. Spontaneous eye movement and left upper extremity movement. No change in neurological status. Objective Vitals Vital Signs Date Time Temp Pulse Resp B/P (MAP) Pulse Ox O2 Delivery O2 Flow Rate FiO2 08/26/17 08:00 97.1 76 20 183/81 (115) 98 08/26/17 07:47 100 T-piece 35 08/26/17 05:04 97 T-piece 6.00 35 08/26/17 05:04 98 T-piece 6.00 35 08/26/17 00:10 97.0 81 17 144/67 (92) 99 08/25/17 20:15 97.1 68 17 131/63 (85) 97 08/25/17 16:00 97.8 64 19 141/68 (92) 96 08/25/17 12:00 96.9 82 19 101/58 (72) 96 I/O 08/25/17 08/25/17 08/25/17 08/26/17 08/26/17 08/26/17 07:00 15:00 23:00 07:00 15:00 23:00 Intake Total 0 ml 0 ml 0 ml 360 ml 0 ml Output Total 850 ml 0 ml 504 ml 700 ml Balance -850 ml 0 ml -504 ml -340 ml 0 ml Intake Oral 0 ml 0 ml 0 ml 0 ml Tube Feeding 360 ml Output Urine Total 850 ml 500 ml 700 ml Stool Total 4 ml Tube Feeding Residual Discard 0 ml 0 ml # Bowel Movements 2 1 Objective Remarks GEN: Appears comfortable. NAD. Trach and PEG. Lists to the left. HEAD: Right side facial droop. LUNGS: Decreased sounds in b/l bases, breathing spontaneously via T-tube. CARDIOVASCULAR: NRRR, normal S1/S2, no murmur GI/ABD: Soft, non-distended. Feeding tube insertion point with no redness, no distention NEURO: Not able to track. Flaccid paralysis on the right side. MUSC: Pedal pulses present. SKIN: Sacral pressure ulcer extends from anus to coccyx. Stage II, not examined today EXTREMITIES: Trace edema bilaterally Other: urinary catheter in place. Procedures ORIF 04/21/17 Intubation 04/30/17 Chest tube placement 05/07/17, removed 05/12/17 Trach placement 05/15/17 PEG tube placement 05/16/17 A/P Assessment and Plan 76 y/o female with HTN, DM admitted for DKA and hip fracture s/p large CVA after ORIF she is currently stable with her current treatment but has had no meaningful functional recovery and do not anticipate any further neurologic recovery from here on. Dr. Harper, Dr. Tran and case management had a long discussion with the daughter on 07/23 and the patient's daughter is still hopeful for full recovery for her mom in spite of her mom's state of health since her CVA. DW the daughter that it is our belief based on her clinical picture that she will not make any sort of meaningful recovery and will remain on the trach and PEG for the rest of her life. DW the daughter due to her status that the patient will likely continue to decline and continue to acquire infections associated with this type of clinical picture including UTI, PNA, and sepsis. DW the daughter to consider the QOL that her mother would have wanted. We recommend that this patient receive Hospice services as we would not anticipate her living longer than 6 months. The daughter does not want to consider this at this time and she is the sole decision maker for this patient. In that case, we will continue to treat the patient aggressively as issues arise and honor the families wishes. A one-hour long family meeting was held (07/26) with patient's daughter Trice, Dr. Harper, Dr. Watts and patient's nurse to discuss patient's poor prognosis. We felt it was important to listen to daughter's perspective and address any questions or concerns she has about her mother's care. Patient goals of care were also discussed. Daughter still wants aggressive treatment. Daughter was informed that from our medical standpoint we do not anticipated any meaningful recovery from her mother's current baseline. Neither do we anticipate for mother to be able to get off PEG tube feeds and trach. However, we will continue to honor daughter's wishes and provide aggressive medical care. ID and pulmonology are actively following. Patient is currently being treated for MDR pseudomonas pna and pulmonology recommended bronchoscopy. Risk and benefits of the procedure were explained and discussed with daughter. The option for her mother not to have the bronchoscopy and to instead continue treatment with antibiotics was also discussed. She is currently unsure about the procedure. She was advised to take time to think about her decision keeping in mind what her mother's wishes would be. 08/02- Daughter at bedside. I had a long discussion with the daughter. Discussed with her about patient's unchanged status. She agreed to thoracentesis done on 08/05. She still wants aggressive care for her mother. Discharge Planning Pending placement, case makerproduce department manager Ramses mendoza [phone] Problem List: (1) Chronic respiratory failure ICD Codes: J96.10 - Chronic respiratory failure, unspecified whether with hypoxia or hypercapnia Plan: At this point, respiratory failure is chronic on T-tube Hospital Acquired PNA on 07/21 CXR 08/01 demonstrating bilateral airspace disease and effusions, R>L sputum culture positive for Multi drug resistant pseudomonas Blood cultures from 07/21 no growth (final) Repeat blood cultures from 07/25 no growth final Legionella and S pneumonia urine antigen negative --Repeat sputum culture pending today -ID signed off at this time (Dr. Saleh), recommendations appreciated - Completed ceftolozane/ tazobactam (07/25-08/06) - Completed Colistin Neb 75 joseph q8hr (08/06-08/11) - Blood cultures 07/25 NGTD -Pulmonology following (Dr. Rizo), recommended bronchoscopy procedure, daughter refused - CXR 07/29 revealed diffuse bilateral airspace disease with interval worsening on the right, lasix 40mg IV given once for fluid overload - Repeat CXR revealed worsening b/l airspace disease and effusion, slightly worse on the left since 07/29. Right effusion and airspace diases remains larger than the left side. - US chest wall, moderate right pleural effusion. - Consulted IR for US guided thoracentesis, performed on 08/05 removing 1450 cc of clear yellow fluid - Pleural fluid culture from 08/05 with no growth after 72 hours Infection History Pseudomonas hospital-acquired pneumonia - resolved MSSA bacteremia - resolved Serratia/staph aureus pneumonia - resolved C glabrata UTI - resolved Citrobacter UTI - resolved Serratia/MSSA sputum VAP - resolved Antibiotic History Cefazolin: 04/21-04/22, 05/15-05/16 Cefepime: 04/30-05/04, 05/27-06/03 Ceftrioxone 05/26-05/27 Erythromycin 06/16-06/18, 06/19 Gentamicin 04/21 vancomycin 04/30-05/04, 06/21-06/23 Zosyn 07/21 - 07/25 Azithromycin 07/21 - 07/25 Fluconazole 04/29 - ; 07/26 ceftolozane/ tazobactam 07/25 - 08/06 Colistin nebs q8h 08/06 - 08/11 (2) Pleural effusion ICD Codes: J90 - Pleural effusion, not elsewhere classified Status: Acute Plan: US chest 08/01 demonstrating moderate right pleural effusion IR consulted for thoracentesis performed 08/05 Further plan as above (3) Acute CVA (cerebrovascular accident) ICD Codes: I63.9 - Cerebral infarction, unspecified Status: Chronic Plan: Neurologically stable, no improvement. Overall prognosis is poor. Persistent oxygen requirement See above note about meeting with Daughter on 07/23 and 07/26. Daughter still desires full code and aggressive care -Titrate oxygen via trach to maintain O2 saturation above 92% -Continue tube fees at 45ml/hr 24 hours per day thru peg Tube -Neurosurgery, neurology and palliative care have all been consulted in the past and agree with very poor prognosis with no meaningful neurologic recovery. History and imaging: Patient found minimally responsive with neurological deficits around 0820 04/24. Stat CT of head was ordered, which showed large left MCA infarct. Diffuse edema throughout the left MCA distribution, suggested completed infarct. This was discussed and was not a candidate for intracranial intervention. CT (04/30): Reduction in midline shift to 11mm. Unchanged large left MCA infarction. CT head (05/06) shows: Evolving large left-sided MCA territory infarct with minimally improved [id number] subfalcine shift. No intercurrent hemorrhage or other acute abnormality. Echocardiogram- The left ventricular systolic function is low normal with an estimated ejection fraction in the range of 50-55%. Mild concentric left ventricular hypertrophy. Normal left ventricular size. [id number] mitral valve regurgitation. Carotid Artery US- No hemodynamically significant carotid stenosis (4) UTI (urinary tract infection) ICD Codes: N39.0 - Urinary tract infection, site not specified Status: Resolved Plan: UCx on 07/15 positive for E coli Repeat UCx on 07/20 positive for C. Freundii UCx 07/24 grew only yeast - See above for antibiotic history and coverage (5) Sacral decubitus ulcer ICD Codes: L89.159 - Pressure ulcer of sacral region, unspecified stage Status: Chronic Plan: Patient with Stage II pressure injury over the coccyx -Wound care consult appreciated: 1. Please cleanse coccyx wound every 3 days and PRN for soiling. 2. Apply Calcium Alginate to open wound bed. 3. Secure with bordered gauze every 3 days and PRN for soiling. 4. Continue to turn patient every 2 hours or PRN for comfort. 5. Use one ultrasorb for moisture. Please use flat sheet for repositioning. (6) Anemia ICD Codes: D64.9 - Anemia, unspecified Status: Chronic Plan: s/p 1u of PRBC on 05/28/17. Hgb stable Hemoccult negative on 05/29 - monitor H&H periodically Stable 07/31 (7) Urinary retention ICD Codes: R33.9 - Retention of urine, unspecified Status: Chronic Plan: - Cath last changed 07/15, pt afebrile - Urine output WNL (8) Type 2 diabetes mellitus ICD Codes: E11.9 - Type 2 diabetes mellitus without complications Status: Chronic Plan: - BSBG ranging 120-222 past 24 hours, requiring 5 units total supplemental insulin -continue to monitor BSG -Decreased Levemir to 15 units q 12 due to BG range below goal. -Will continue to monitor -BS goal 140-180 -Discontinued SSI on 07/16 -AccuCheks QShift -Glucerna for PEG tube feedings @ 45 ml/hr -Glucagon 1 mg per PRN protocol for hypoglycemia BS <70mg/dL History Admitted for DKA which has now resolved. Hemoglobin A1C is 12.9. Diabetes Type II is uncontrolled. (9) Hip fracture ICD Codes: S72.009A - Fracture of unspecified part of neck of unspecified femur , initial encounter for closed fracture Status: Resolved Plan: S/P left hip reduction and intramedullary nail fixation on 04-21-17 -c/w Calcium/Vitamin D (10) Hypertension ICD Codes: I10 - Essential (primary) hypertension Status: Chronic Plan: -Antihypertensives to keep SBP<160, as per critical care recs -c/w clonidine 0.1mg Q6h PRN SBP >160 -c/w lisinopril 40mg Q12h po Echocardiogram 04/24 - EF 50 to 55%. Mild concentric LVH. (11) Fluids, Electrolytes, and Nutrition Status: Acute Plan: Fluids: through PEG tube Electrolyte: Continue to monitor periodically, replete as needed Nutrition: continuous Glucerna tube feeds and free water, pump at 45mls/hr, tolerating feeds well, no residual. Protein 1 pack TID. Supplements: calcium TID and vit D3 QD DVT ppx: SCDs/heparin CVA ppx: aspirin 325 mg QD GI ppx: Lansoprazole 30mg qd via NG Problem Qualifiers (1) Chronic respiratory failure: Qualified Codes: J96.11 - Chronic respiratory failure with hypoxia (2) UTI (urinary tract infection): Qualified Codes: N39.0 - Urinary tract infection, site not specified (3) Sacral decubitus ulcer: Qualified Codes: L89.154 - Pressure ulcer of sacral region, stage 4 (4) Type 2 diabetes mellitus: Qualified Codes: E11.9 - Type 2 diabetes mellitus without complications (5) Hip fracture: (6) Hypertension: Qualified Codes: I10 - Essential (primary) hypertension Moisés Hanson MD, R2 Aug 26, 2017 09:59
--- NOTE | 2017-08-26 17:28 | HHI.PR ---
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 opens eyes, holds bedrail with left hand No new complaint no fever Objective Vital Signs Vital Signs Date Time Temp Pulse Resp B/P (MAP) Pulse Ox O2 Delivery O2 Flow Rate FiO2 08/26/17 16:00 97.8 91 20 184/91 (122) 98 08/26/17 11:33 97.8 89 21 174/84 (114) 99 08/26/17 08:00 97.1 76 20 183/81 (115) 98 08/26/17 08:00 97 Mechanical Ventilator 6.00 28 Trach Collar Humidified 08/26/17 07:47 100 T-piece 35 08/26/17 05:04 97 T-piece 6.00 35 08/26/17 05:04 98 T-piece 6.00 35 08/26/17 00:10 97.0 81 17 144/67 (92) 99 08/25/17 20:15 97.1 68 17 131/63 (85) 97 I/O 08/25/17 08/25/17 08/25/17 08/26/17 08/26/17 08/26/17 07:00 15:00 23:00 07:00 15:00 23:00 Intake Total 0 ml 0 ml 0 ml 360 ml 0 ml Output Total 850 ml 0 ml 504 ml 700 ml 0 ml Balance -850 ml 0 ml -504 ml -340 ml 0 ml Intake Oral 0 ml 0 ml 0 ml 0 ml Tube Feeding 360 ml Output Urine Total 850 ml 500 ml 700 ml Stool Total 4 ml Tube Feeding Residual Discard 0 ml 0 ml 0 ml # Bowel Movements 2 1 Objective Remarks GENERAL: Elderly female,NAD SKIN: Warm and dry. HEAD: Normocephalic. EYES: No scleral icterus. No injection or drainage. NECK: Supple, trachea midline. No JVD or lymphadenopathy. CARDIOVASCULAR: Regular rate and rhythm without murmurs, gallops, or rubs. RESPIRATORY: Breath sounds equal bilaterally. No accessory muscle use. GASTROINTESTINAL: Abdomen soft, non-tender, nondistended. MUSCULOSKELETAL: No cyanosis, or edema. BACK: Nontender without obvious deformity. No CVA tenderness. A/P Assessment and Plan RF,S/P Trach CVA Pneumonia Pleural effusion PLAN: Aerosol nebs Supplement 02 Trach care TF Chris Rizo MD Aug 26, 2017 17:28
[2017-08-27] VITALS (8 sets, daily range): BP systolic 144–176; BP diastolic 77–88; PULSE 70–89; RESP 17–19; TEMP 95.6–96.6; O2SAT 96–99
[2017-08-27] MEDS: INSULIN ASPART SUPPLEMENTAL SCALE SQ SCH ×4 (00:29→18:20)
[2017-08-27] MEDS: ARTIFICIAL TEARS OPTH SOLN 15 ML BTL EACH EYE SCH ×3 (05:52→21:06)
[2017-08-27] MEDS: HEPARIN SODIUM - SQ 10,000 UNITS/ML VIAL SQ SCH ×3 (05:53→21:05)
[2017-08-27] MEDS: CHOLECALCIFEROL (VIT D3) 5000 UNIT CAP PO SCH (08:34)
[2017-08-27] MEDS: ASPIRIN 325 MG TAB DOBHOFF SCH (08:34)
[2017-08-27] MEDS: CALCIUM/VITAMIN D 250 MG/125 U TAB PO SCH ×3 (08:34→18:23)
[2017-08-27] MEDS: LANSOPRAZOLE SOLUTAB 30 MG TAB NG SCH (08:34)
[2017-08-27] MEDS: POLYETHYLENE GLYCOL 17 GM PKG PEG SCH (08:37)
[2017-08-27] MEDS: LISINOPRIL 20 MG TAB PO SCH ×2 (08:37→21:03)
[2017-08-27] MEDS: INSULIN DETEMIR 100 UNITS/ML VIAL SQ SCH ×2 (08:38→21:23)
[2017-08-27] MEDS: SODIUM CHLORIDE 0.9% FLUSH 5 ML FLUSH IV FLUSH SCH ×2 (08:44→21:00)
[2017-08-27] MEDS: BENEPROTEIN POWDER 1 PACK G-TUBE SCH ×3 (08:44→18:00)
[2017-08-27 10:03] LABS: AUTOMATED NEUTROPHIL # 6.6 TH/MM3 (1.8-7.7); BASOPHIL # 0.1 TH/MM3 (0-0.2); BASOPHIL % 1.3 % (0.0-2.0); EOSINOPHIL # 0.7 TH/MM3 (0-0.4); EOSINOPHIL % 6.5 % (0.0-4.0); HEMATOCRIT 34.5 % (35.0-46.0); HEMOGLOBIN 11.6 GM/DL (11.6-15.3); LYMPH % 19.1 % (9.0-44.0); LYMPHOCYTE # 1.9 TH/MM3 (1.0-4.8); MEAN CELL VOLUME 97.6 FL (80.0-100.0); MEAN CORPUSCULAR HEMOGLOBIN 32.8 PG (27.0-34.0); MEAN CORPUSCULAR HGB CONC 33.6 % (32.0-36.0); MEAN PLATELET VOLUME 10.3 FL (7.0-11.0); MONO % 7.3 % (0.0-8.0); MONOCYTE # 0.7 TH/MM3 (0-0.9); NEUT % 65.8 % (16.0-70.0); PLATELET COUNT 252 TH/MM3 (150-450); RED BLOOD COUNT 3.53 MIL/MM3 (4.00-5.30); RED CELL DISTRIBUTION WIDTH 15.8 % (11.6-17.2); WHITE BLOOD COUNT 10.1 TH/MM3 (4.0-11.0)
[2017-08-27 10:21] LABS: BICARBONATE 29.2 MEQ/L (21.0-32.0); CALCIUM 9.3 MG/DL (8.5-10.1); CREATININE 0.35 MG/DL (0.50-1.00)
--- NOTE | 2017-08-27 15:03 | HHI.FPPN ---
Subjective Remarks Mrs. Hein was afebrile with HTN overnight (max MAP 122). Patient with normal O2 saturations on T piece with 35% FiO2. Patient with 1400ml urine output overnight and 7 BM overnight. Objective Vitals Vital Signs Date Time Temp Pulse Resp B/P (MAP) Pulse Ox O2 Delivery O2 Flow Rate FiO2 08/27/17 12:00 96.4 76 17 154/77 (102) 97 08/27/17 10:02 97 T-piece 6.00 35 08/27/17 10:02 97 T-piece 6.00 35 08/27/17 08:00 96.6 81 19 176/85 (115) 96 08/27/17 00:24 95.6 89 18 168/88 (114) 99 08/26/17 21:50 98 T-piece 6.00 35 08/26/17 21:50 98 T-piece 6.00 35 08/26/17 21:30 100 Trach Collar 6.00 28 08/26/17 20:00 96.0 75 17 140/73 (95) 100 08/26/17 16:00 97.8 91 20 184/91 (122) 98 I/O 08/26/17 08/26/17 08/26/17 08/27/17 08/27/17 08/27/17 07:00 15:00 23:00 07:00 15:00 23:00 Intake Total 360 ml 0 ml 0 ml Output Total 700 ml 0 ml 400 ml 1000 ml Balance -340 ml 0 ml -400 ml -1000 ml Intake Oral 0 ml 0 ml Tube Feeding 360 ml Output Urine Total 700 ml 400 ml 1000 ml Tube Feeding Residual Discard 0 ml # Bowel Movements 1 5 2 Result Diagram: 08/27/17 0945 08/27/17 0945 Imaging Last Impressions Thoracentesis 08/05/17 1535 Signed Impressions: Service Date/Time: Saturday, August 05, 2017 16:08 - CONCLUSION: Uncomplicated CT-guided thoracentesis. Sage Adler MD Chest X-Ray 08/05/17 0000 Signed Impressions: Service Date/Time: Saturday, August 05, 2017 16:59 - CONCLUSION: Negative pneumothorax following right thoracentesis. Ricardo Middleton MD FACR Chest Ultrasound 08/02/17 0000 Signed Impressions: Service Date/Time: Tuesday, August 01, 2017 22:06 - CONCLUSION: 1. Moderate right pleural effusion, as above. Alejo De La Vega MD Hip and Pelvis X-Ray 07/09/17 0000 Signed Impressions: Service Date/Time: Sunday, July 09, 2017 14:04 - CONCLUSION: Anatomic alignment. iRcardo Middleton MD FACR Liver Ultrasound 06/19/17 0000 Signed Impressions: Service Date/Time: June 13:20 - CONCLUSION: 1. Mildly increased echotexture of the liver characteristic of hepatic steatosis. 2. Gallbladder sludge. Obdulio Sam MD Abdomen X-Ray 06/16/17 0000 Signed Impressions: Service Date/Time: Friday, June 16, 2017 04:48 - CONCLUSION: 1. Continued small bowel ileus. There has been no significant change when compared to the prior exam. Toy Duran MD Head CT 05/15/17 0000 Signed Impressions: Service Date/Time: May 19:59 - CONCLUSION: 1. 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 2. No bleed or new/acute infarct. Obdulio Simms MD Gall Bladder Ultrasound 05/08/17 0000 Signed Impressions: Service Date/Time: May 08:23 - CONCLUSION: Focally unremarkable appearance of the gallbladder Obdulio Chun MD Abdomen/Pelvis CT 05/07/17 0000 Signed Impressions: Service Date/Time: Sunday, May 07, 2017 13:23 - CONCLUSION: 1. Large left pneumothorax. 2. Bilateral lower lobe consolidation and bilateral moderate size pleural effusions. 3. Significant soft tissue thickening of the right lateral chest wall and left gluteus muscle. 4. Mild ascites. The findings were called to Dr. Carney. Deangelo Zamora MD Chest CT 04/30/17 0000 Signed Impressions: Service Date/Time: Sunday, April 30, 2017 09:20 - CONCLUSION: 1. Bilateral pulmonary infiltrates more pronounced within the lower lobes with tiny bilateral pleural effusions. Material seen filling the lower lobe bronchi bilaterally either related to purulent material or perhaps mucus plugging. Deangelo Wren Jr., MD Carotid Artery Ultrasound 04/24/17 0000 Signed Impressions: Service Date/Time: April 09:45 - CONCLUSION: 1. No hemodynamically significant carotid artery stenosis. Arnie Middleton MD Hip X-Ray 04/21/17 0000 Signed Impressions: Service Date/Time: Friday, April 21, 2017 11:36 - CONCLUSION: Fluoroscopic images during placement of intramedullary siomara left femur. Benja Ramsey MD Objective Remarks GEN: Appears comfortable. NAD. Trach and PEG. Lists to the left. HEAD: Right side facial droop. LUNGS: Decreased sounds in b/l bases, breathing spontaneously via T-piece (6L; FiO2 35%). CARDIOVASCULAR: NRRR, normal S1/S2, no murmur. Grossly normal peripheral perfusion GI/ABD: Soft, non-distended. NEURO: Did not open eyes to sternal rubbing. Flaccid paralysis on the right side. MUSC: No calf asymmetry appreciated SKIN: Sacrum not inspected today(08/27); previously sacral pressure ulcer extended from anus to coccyx; stage II EXTREMITIES: Trace edema bilaterally Other: urinary catheter in place. Procedures ORIF 04/21/17 Intubation 04/30/17 Chest tube placement 05/07/17, removed 05/12/17 Trach placement 05/15/17 PEG tube placement 05/16/17 A/P Assessment and Plan 76 y/o female with HTN, DM admitted for DKA and hip fracture s/p large CVA after ORIF she is currently stable with her current treatment but has had no meaningful functional recovery and do not anticipate any further neurologic recovery from here on. Dr. Harper, Dr. Tran and case management had a long discussion with the daughter on 07/23 and the patient's daughter is still hopeful for full recovery for her mom in spite of her mom's state of health since her CVA. DW the daughter that it is our belief based on her clinical picture that she will not make any sort of meaningful recovery and will remain on the trach and PEG for the rest of her life. DW the daughter due to her status that the patient will likely continue to decline and continue to acquire infections associated with this type of clinical picture including UTI, PNA, and sepsis. DW the daughter to consider the QOL that her mother would have wanted. We recommend that this patient receive Hospice services as we would not anticipate her living longer than 6 months. The daughter does not want to consider this at this time and she is the sole decision maker for this patient. In that case, we will continue to treat the patient aggressively as issues arise and honor the families wishes. A one-hour long family meeting was held (07/26) with patient's daughter Trice, Dr. Harper, Dr. Watts and patient's nurse to discuss patient's poor prognosis. We felt it was important to listen to daughter's perspective and address any questions or concerns she has about her mother's care. Patient goals of care were also discussed. Daughter still wants aggressive treatment. Daughter was informed that from our medical standpoint we do not anticipated any meaningful recovery from her mother's current baseline. Neither do we anticipate for mother to be able to get off PEG tube feeds and trach. However, we will continue to honor daughter's wishes and provide aggressive medical care. ID and pulmonology are actively following. Patient is currently being treated for MDR pseudomonas pna and pulmonology recommended bronchoscopy. Risk and benefits of the procedure were explained and discussed with daughter. The option for her mother not to have the bronchoscopy and to instead continue treatment with antibiotics was also discussed. She is currently unsure about the procedure. She was advised to take time to think about her decision keeping in mind what her mother's wishes would be. 08/02- Daughter at bedside. I had a long discussion with the daughter. Discussed with her about patient's unchanged status. She agreed to thoracentesis done on 08/05. She still wants aggressive care for her mother. 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 Rizo), recommended bronchoscopy procedure, daughter refused -Aerosol nebs -Supplement O2 -TF -Pseudomonas (mcdonald-resistant) on sputum culture 08/25 Impression: No respiratory symptoms or leukocytosis to suggest pneumonia at this time -Will re-consult ID as mcdonald-resistant organism -Will repeat CXR Impression/History: At this point, respiratory failure is chronic on T-tube Hospital Acquired PNA on 07/21 CXR 08/01 demonstrating bilateral airspace disease and effusions, R>L US chest wall 08/02- moderate right pleural effusion. - Consulted IR for US guided thoracentesis, performed on 08/05 removing 1450 cc of clear yellow fluid - Pleural fluid culture from 08/05 with no growth after 72 hours Legionella and S pneumonia urine antigen negative Infection History Pseudomonas hospital-acquired pneumonia - resolved MSSA bacteremia - resolved Serratia/staph aureus pneumonia - resolved C glabrata UTI - resolved Citrobacter UTI - resolved Serratia/MSSA sputum VAP - resolved Antibiotic History Cefazolin: 04/21-04/22, 05/15-05/16 Cefepime: 04/30-05/04, 05/27-06/03 Ceftrioxone 05/26-05/27 Erythromycin 06/16-06/18, 06/19 Gentamicin 04/21 vancomycin 04/30-05/04, 06/21-06/23 Zosyn 07/21 - 07/25 Azithromycin 07/21 - 07/25 Fluconazole 04/29 - ; 07/26 ceftolozane/ tazobactam 07/25 - 08/06 Colistin nebs q8h 08/06 - 08/11 (2) Pleural effusion ICD Codes: J90 - Pleural effusion, not elsewhere classified Status: Acute Plan: US chest 08/01 demonstrating moderate right pleural effusion Consulted IR for US guided thoracentesis, performed on 08/05 removing 1450 cc of clear yellow fluid - Pleural fluid culture from 08/05 with no growth after 72 hours Further plan as above -Will repeat CXR due to + pseudomonas culture 08/27 (3) Acute CVA (cerebrovascular accident) ICD Codes: I63.9 - Cerebral infarction, unspecified Status: Chronic Plan: Neurologically stable, no improvement. Overall prognosis is poor. Persistent oxygen requirement See above note about meeting with Daughter on 07/23 and 07/26. Daughter still desires full code and aggressive care -Titrate oxygen via trach to maintain O2 saturation above 92% -Continue tube fees at 45ml/hr 24 hours per day thru peg Tube -Neurosurgery, neurology and palliative care have all been consulted in the past and agree with very poor prognosis with no meaningful neurologic recovery. History and imaging: Patient found minimally responsive with neurological deficits around 0820 04/24. Stat CT of head was ordered, which showed large left MCA infarct. Diffuse edema throughout the left MCA distribution, suggested completed infarct. This was discussed and was not a candidate for intracranial intervention. CT (04/30): Reduction in midline shift to 11mm. Unchanged large left MCA infarction. CT head (05/06) shows: Evolving large left-sided MCA territory infarct with minimally improved muaf-ol-cxpye subfalcine shift. No intercurrent hemorrhage or other acute abnormality. Echocardiogram- The left ventricular systolic function is low normal with an estimated ejection fraction in the range of 50-55%. Mild concentric left ventricular hypertrophy. Normal left ventricular size. [id number] mitral valve regurgitation. Carotid Artery US- No hemodynamically significant carotid stenosis (4) UTI (urinary tract infection) ICD Codes: N39.0 - Urinary tract infection, site not specified Status: Resolved Plan: UCx on 07/15 positive for E coli Repeat UCx on 07/20 positive for C. Freundii UCx 07/24 grew only yeast; no bacteria - See above for antibiotic history and coverage (5) Sacral decubitus ulcer ICD Codes: L89.159 - Pressure ulcer of sacral region, unspecified stage Status: Chronic Plan: Patient with Stage II pressure injury over the coccyx -Wound care consult appreciated: 1. Please cleanse coccyx wound every 3 days and PRN for soiling. 2. Apply Calcium Alginate to open wound bed. 3. Secure with bordered gauze every 3 days and PRN for soiling. 4. Continue to turn patient every 2 hours or PRN for comfort. 5. Use one ultrasorb for moisture. Please use flat sheet for repositioning. (6) Anemia ICD Codes: D64.9 - Anemia, unspecified Status: Chronic Plan: s/p 1u of PRBC on 05/28/17. Hgb stable Hemoccult negative on 05/29 - monitor H&H periodically (7) Urinary retention ICD Codes: R33.9 - Retention of urine, unspecified Status: Chronic Plan: - Cath last changed 07/15, pt afebrile - Urine output WNL (8) Type 2 diabetes mellitus ICD Codes: E11.9 - Type 2 diabetes mellitus without complications Status: Chronic Plan: -continue to monitor BSG -Continue Levemir 7 units q 12 hrs -Will continue to monitor -Glucerna for PEG tube feedings @ 45 ml/hr -Glucagon 1 mg per PRN protocol for hypoglycemia BS <70mg/dL History Admitted for DKA which has now resolved. Hemoglobin A1C 12.9 04/2017 (9) Hip fracture ICD Codes: S72.009A - Fracture of unspecified part of neck of unspecified femur , initial encounter for closed fracture Status: Resolved Plan: S/P left hip reduction and intramedullary nail fixation on 04-21-17 -c/w Calcium/Vitamin D (10) Hypertension ICD Codes: I10 - Essential (primary) hypertension Status: Chronic Plan: -Antihypertensives to keep SBP<160 -c/w clonidine 0.1mg Q6h PRN SBP >160 -c/w lisinopril 40mg Q12h po Echocardiogram 04/24 - EF 50 to 55%. Mild concentric LVH. (11) Fluids, Electrolytes, and Nutrition Status: Acute Plan: Fluids: through PEG tube Electrolyte: Continue to monitor periodically, replete as needed Nutrition: continuous Glucerna tube feeds and free water, pump at 45mls/hr, tolerating feeds well, no residual. Protein 1 pack TID. Supplements: calcium TID and vit D3 QD DVT ppx: SCDs/heparin CVA ppx: aspirin 325 mg QD GI ppx: Lansoprazole 30mg qd via NG Problem Qualifiers (1) Chronic respiratory failure: Qualified Codes: J96.11 - Chronic respiratory failure with hypoxia (2) UTI (urinary tract infection): Qualified Codes: N39.0 - Urinary tract infection, site not specified (3) Sacral decubitus ulcer: Qualified Codes: L89.154 - Pressure ulcer of sacral region, stage 4 (4) Type 2 diabetes mellitus: Qualified Codes: E11.9 - Type 2 diabetes mellitus without complications (5) Hip fracture: (6) Hypertension: Qualified Codes: I10 - Essential (primary) hypertension Bernabe Aldana MD, R3 Aug 27, 2017 15:03
--- NOTE | 2017-08-27 15:32 | HHI.PR ---
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 opens eyes, No new complaint no fever Objective Vital Signs Vital Signs Date Time Temp Pulse Resp B/P (MAP) Pulse Ox O2 Delivery O2 Flow Rate FiO2 08/27/17 12:00 96.4 76 17 154/77 (102) 97 08/27/17 10:02 97 T-piece 6.00 35 08/27/17 10:02 97 T-piece 6.00 35 08/27/17 08:00 96.6 81 19 176/85 (115) 96 08/27/17 00:24 95.6 89 18 168/88 (114) 99 08/26/17 21:50 98 T-piece 6.00 35 08/26/17 21:50 98 T-piece 6.00 35 08/26/17 21:30 100 Trach Collar 6.00 28 08/26/17 20:00 96.0 75 17 140/73 (95) 100 08/26/17 16:00 97.8 91 20 184/91 (122) 98 I/O 08/26/17 08/26/17 08/26/17 08/27/17 08/27/17 08/27/17 07:00 15:00 23:00 07:00 15:00 23:00 Intake Total 360 ml 0 ml 0 ml Output Total 700 ml 0 ml 400 ml 1000 ml Balance -340 ml 0 ml -400 ml -1000 ml Intake Oral 0 ml 0 ml Tube Feeding 360 ml Output Urine Total 700 ml 400 ml 1000 ml Tube Feeding Residual Discard 0 ml # Bowel Movements 1 5 2 Result Diagram: 08/27/1745 08/27/1745 Objective Remarks GENERAL: Elderly female,NAD SKIN: Warm and dry. HEAD: Normocephalic. EYES: No scleral icterus. No injection or drainage. NECK: Supple, trachea midline. No JVD or lymphadenopathy. CARDIOVASCULAR: Regular rate and rhythm without murmurs, gallops, or rubs. RESPIRATORY: Breath sounds equal bilaterally. No accessory muscle use. GASTROINTESTINAL: Abdomen soft, non-tender, nondistended. MUSCULOSKELETAL: No cyanosis, or edema. BACK: Nontender without obvious deformity. No CVA tenderness. A/P Assessment and Plan RF,S/P Trach CVA Pneumonia Pleural effusion PLAN: Cont trach collar Aerosol nebs Supplement 02 Trach care TF Chris Rizo MD Aug 27, 2017 15:32
--- NOTE | 2017-08-27 20:17 | MB ---
cc: YVONNE ESPINAL MD, FRANKLYN F. MD DATE OF CONSULTATION: 08/27/2017 REQUESTING PHYSICIAN: Dr. Espinal. REASON FOR CONSULTATION: Multidrug resistant Pseudomonas on tracheal aspirate culture. HISTORY OF PRESENT ILLNESS This is a 77 year-old white female who has been in the hospital since April 20, 2017. The patient has undergone treatment including left hip reduction and intramedullary nail fixation of a displaced left hip intertrochanteric fracture. The patient is basically nonresponsive except for opening her eyes. She has a chronic tracheostomy and also a PEG. She has a dense right hemiplegia having suffered a stroke in the left MCA territory. The patient has had previous positive cultures before with different bacteria including Gram-negative bacteria in the sputum and urine. She did have a few positive pseudomonas on 07/21/2017. A sputum culture was taken on 08/25 and came back with Pseudomonas aeruginosa which is very resistant. This was taken from a tracheal aspirate. I spoke to the nurse and they tell me the patient has very little sputum and the daughter wanted a sputum sample sent. She is in no acute distress currently. White count is normal. She is afebrile. I am asked to address the positive sputum culture. PAST MEDICAL HISTORY: CVA. ALLERGIES NO KNOWN DRUG ALLERGIES. MEDICATIONS 1. Prinivil 2. Levemir. 3. Prevacid. 4. Aspirin. 5. Os-Jayjay D. 6. Vitamin D3. SOCIAL HISTORY: Unobtainable. REVIEW OF SYSTEMS: Unobtainable. PHYSICAL EXAMINATION: An elderly female who is laying in bed and is very somnolent and not arousing to verbal stimuli. Vital signs: Include temperature 96.5, BP 150/77, respirations 17, heart rate 79. HEENT: The head is atraumatic. Extraocular movements cannot be fully assessed. Oropharynx - slightly dry mucosa. Neck: Supple with tracheostomy in place and no secretions seen within the tracheostomy tubing. Lungs: Slight rhonchi at both bases. Heart: Regular S1-S2. Abdomen: Bowel sounds present, soft, nontender. Rectal: Not performed. Extremities: No clubbing, cyanosis, edema. Neuro: Unable to assess. Psych: Unable to assess. LABORATORY DATA: WBC 10.1, platelet count 252, creatinine 0.35, BUN 44, sputum culture Pseudomonas resistant to oral antibiotics tested except for intermediate sensitivity to cefepime. 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 I would not treat her with any antibiotics and in fact there is no antibiotic that appears to be effective on the panel of antibiotic sensitivities. If the patient does not have acute respiratory problems, I would not send any sputum culture on her going forward since it just complicates issues as far as trying to make decisions to treat her with antibiotics to which there is no effective ones available for treatment at this time. This should be conveyed to the patient's caregivers as well. Thank you for the consultation. Anjel Bo MD FD/NATAN /4:53 PM /7:52 PM
[2017-08-28] VITALS (8 sets, daily range): BP systolic 104–168; BP diastolic 45–81; PULSE 54–83; RESP 16–18; TEMP 95.6–97; O2SAT 92–99
[2017-08-28] MEDS: INSULIN ASPART SUPPLEMENTAL SCALE SQ SCH ×4 (00:50→17:43)
[2017-08-28] MEDS: HEPARIN SODIUM - SQ 10,000 UNITS/ML VIAL SQ SCH ×3 (06:02→22:20)
[2017-08-28] MEDS: ARTIFICIAL TEARS OPTH SOLN 15 ML BTL EACH EYE SCH ×3 (06:03→22:20)
--- NOTE | 2017-08-28 07:14 | RADRPT ---
EXAM DATE/TIME: 08/28/2017 06:28 [facility] COMPARISON: CHEST SINGLE AP, August 01, 2017, 21:06. INDICATIONS : Short of breath, evaluate effusion MEDICAL HISTORY : Stroke. Hysterectomy diabetes, anxiety SURGICAL HISTORY : tracheostomy ENCOUNTER: Subsequent ACUITY: 2 days PAIN SCORE: Non-responsive. LOCATION: Bilateral chest FINDINGS: A single AP portable semierect view of the chest was obtained and again demonstrates the tracheostomy tube in place. Diffuse bilateral opacity remains in both lungs right greater than left without signi ficant change. Both costophrenic angles remain blunted. The heart size is mildly enlarged. Overlying echocardiogram leads and oxygen tubing are present. There is mild scoliosis and degenerative change i n the thoracic spine. CONCLUSION: No significant change. Bilateral airspace disease and effusions remain. Jose R Casanova MD on August 28, 2017 at 7:11 Board Certified Radiologist. This report was verified electronically.
[2017-08-28] MEDS: CALCIUM/VITAMIN D 250 MG/125 U TAB PO SCH ×3 (08:53→17:44)
[2017-08-28] MEDS: LISINOPRIL 20 MG TAB PO SCH ×2 (08:53→22:20)
[2017-08-28] MEDS: CHOLECALCIFEROL (VIT D3) 5000 UNIT CAP PO SCH (08:53)
[2017-08-28] MEDS: ASPIRIN 325 MG TAB DOBHOFF SCH (08:53)
[2017-08-28] MEDS: LANSOPRAZOLE SOLUTAB 30 MG TAB NG SCH (08:53)
[2017-08-28] MEDS: POLYETHYLENE GLYCOL 17 GM PKG PEG SCH (08:54)
[2017-08-28] MEDS: SODIUM CHLORIDE 0.9% FLUSH 5 ML FLUSH IV FLUSH SCH ×2 (08:54→21:00)
[2017-08-28] MEDS: BENEPROTEIN POWDER 1 PACK G-TUBE SCH ×3 (08:54→17:44)
[2017-08-28] MEDS: INSULIN DETEMIR 100 UNITS/ML VIAL SQ SCH ×2 (08:54→22:20)
[2017-08-28 09:37] LABS: HEMATOCRIT 35.7 % (35.0-46.0); MEAN CELL VOLUME 97.3 FL (80.0-100.0); MEAN CORPUSCULAR HEMOGLOBIN 32.8 PG (27.0-34.0); MEAN CORPUSCULAR HGB CONC 33.7 % (32.0-36.0); MEAN PLATELET VOLUME 10.5 FL (7.0-11.0); PLATELET COUNT 246 TH/MM3 (150-450); RED BLOOD COUNT 3.66 MIL/MM3 (4.00-5.30)
[2017-08-28 09:55] LABS: BICARBONATE 30.8 MEQ/L (21.0-32.0); CALCIUM 9.2 MG/DL (8.5-10.1); CREATININE 0.44 MG/DL (0.50-1.00)
--- NOTE | 2017-08-28 10:26 | HHI.FPPN ---
Subjective Remarks Patient seen and examined this morning. Sleeping. Poorly responsive to painful stimuli. Occasional spontaneous movement, does not verbally respond to speech. Afebrile overnight. Objective Vitals Vital Signs Date Time Temp Pulse Resp B/P (MAP) Pulse Ox O2 Delivery O2 Flow Rate FiO2 08/28/17 08:00 97 Mechanical Ventilator 6.00 28 Trach Collar T-Piece 08/28/17 08:00 95.6 72 18 162/71 (101) 97 08/28/17 04:00 96.8 78 18 165/77 (106) 96 08/28/17 00:36 97.0 83 18 168/81 (110) 99 08/27/17 20:00 96.3 70 18 144/84 (104) 99 08/27/17 19:00 Trach Collar 6.00 25 T-Piece 08/27/17 18:32 98 T-piece 6.00 35 08/27/17 17:28 98 T-piece 6.00 35 08/27/17 16:00 96.5 79 17 158/77 (104) 98 08/27/17 12:00 96.4 76 17 154/77 (102) 97 I/O 08/27/17 08/27/17 08/27/17 08/28/17 08/28/17 08/28/17 07:00 15:00 23:00 07:00 15:00 23:00 Intake Total 0 ml 0 ml Output Total 1000 ml 1085 ml 200 ml Balance -1000 ml -1085 ml -200 ml Intake Oral 0 ml 0 ml Output Urine Total 1000 ml 1085 ml 200 ml # Bowel Movements 2 1 Result Diagram: 08/28/17 0910 08/28/17 0910 Objective Remarks GEN: Appears comfortable. NAD. Trach and PEG. Lists to the left. HEAD: Right side facial droop. LUNGS: Decreased sounds in b/l bases, breathing spontaneously via T-piece (6L; FiO2 35%). CARDIOVASCULAR: NRRR, normal S1/S2, no murmur. Grossly normal peripheral perfusion GI/ABD: Soft, non-distended. NEURO: Did not open eyes to sternal rubbing. Flaccid paralysis on the right side. MUSC: No calf asymmetry appreciated SKIN: Sacrum not inspected today(08/27); previously sacral pressure ulcer extended from anus to coccyx; stage II EXTREMITIES: Trace edema bilaterally Other: urinary catheter in place. Procedures ORIF 04/21/17 Intubation 04/30/17 Chest tube placement 05/07/17, removed 05/12/17 Trach placement 05/15/17 PEG tube placement 05/16/17 A/P Assessment and Plan 76 y/o female with HTN, DM admitted for DKA and hip fracture s/p large CVA after ORIF she is currently stable with her current treatment but has had no meaningful functional recovery and do not anticipate any further neurologic recovery from here on. Dr. Harper, Dr. Tran and case management had a long discussion with the daughter on 07/23 and the patient's daughter is still hopeful for full recovery for her mom in spite of her mom's state of health since her CVA. DW the daughter that it is our belief based on her clinical picture that she will not make any sort of meaningful recovery and will remain on the trach and PEG for the rest of her life. DW the daughter due to her status that the patient will likely continue to decline and continue to acquire infections associated with this type of clinical picture including UTI, PNA, and sepsis. DW the daughter to consider the QOL that her mother would have wanted. We recommend that this patient receive Hospice services as we would not anticipate her living longer than 6 months. The daughter does not want to consider this at this time and she is the sole decision maker for this patient. In that case, we will continue to treat the patient aggressively as issues arise and honor the families wishes. A one-hour long family meeting was held (07/26) with patient's daughter Trice, Dr. Harper, Dr. Watts and patient's nurse to discuss patient's poor prognosis. We felt it was important to listen to daughter's perspective and address any questions or concerns she has about her mother's care. Patient goals of care were also discussed. Daughter still wants aggressive treatment. Daughter was informed that from our medical standpoint we do not anticipated any meaningful recovery from her mother's current baseline. Neither do we anticipate for mother to be able to get off PEG tube feeds and trach. However, we will continue to honor daughter's wishes and provide aggressive medical care. ID and pulmonology are actively following. Patient is currently being treated for MDR pseudomonas pna and pulmonology recommended bronchoscopy. Risk and benefits of the procedure were explained and discussed with daughter. The option for her mother not to have the bronchoscopy and to instead continue treatment with antibiotics was also discussed. She is currently unsure about the procedure. She was advised to take time to think about her decision keeping in mind what her mother's wishes would be. 08/02- Daughter at bedside. I had a long discussion with the daughter. Discussed with her about patient's unchanged status. She agreed to thoracentesis done on 08/05. She still wants aggressive care for her mother. Discharge Planning Pending placement, clinical case managerservice manager Ramses mendoza [phone] Problem List: (1) Chronic respiratory failure ICD Codes: J96.10 - Chronic respiratory failure, unspecified whether with hypoxia or hypercapnia Plan: -Continue respiratory therapy -T-tube supplementation --Pulmonology following (Dr. Rizo), recommended bronchoscopy procedure, daughter refused -Aerosol nebs -Supplement O2 -TF -Pseudomonas (mcdonald-resistant) on sputum culture 08/25 Impression: No respiratory symptoms or leukocytosis to suggest pneumonia at this time -ID suggest likely colonization at this time, will hold off on cultures unless symptomatic or acute changes present. No antibiotics at this time. -Chest x-ray with no significant change Impression/History: At this point, respiratory failure is chronic on T-tube Hospital Acquired PNA on 07/21 CXR 08/01 demonstrating bilateral airspace disease and effusions, R>L US chest wall 08/02- moderate right pleural effusion. - Consulted IR for US guided thoracentesis, performed on 08/05 removing 1450 cc of clear yellow fluid - Pleural fluid culture from 08/05 with no growth after 72 hours Legionella and S pneumonia urine antigen negative Infection History Pseudomonas hospital-acquired pneumonia - resolved MSSA bacteremia - resolved Serratia/staph aureus pneumonia - resolved C glabrata UTI - resolved Citrobacter UTI - resolved Serratia/MSSA sputum VAP - resolved Antibiotic History Cefazolin: 04/21-04/22, 05/15-05/16 Cefepime: 04/30-05/04, 05/27-06/03 Ceftrioxone 05/26-05/27 Erythromycin 06/16-06/18, 06/19 Gentamicin 04/21 vancomycin 04/30-05/04, 06/21-06/23 Zosyn 07/21 - 07/25 Azithromycin 07/21 - 07/25 Fluconazole 04/29 - ; 07/26 ceftolozane/ tazobactam 07/25 - 08/06 Colistin nebs q8h 08/06 - 08/11 (2) Pleural effusion ICD Codes: J90 - Pleural effusion, not elsewhere classified Status: Acute Plan: US chest 08/01 demonstrating moderate right pleural effusion Consulted IR for US guided thoracentesis, performed on 08/05 removing 1450 cc of clear yellow fluid - Pleural fluid culture from 08/05 with no growth after 72 hours Further plan as above -Repeat CXR 08/27 with no significant change (3) Acute CVA (cerebrovascular accident) ICD Codes: I63.9 - Cerebral infarction, unspecified Status: Chronic Plan: Neurologically stable, no improvement. Overall prognosis is poor. Persistent oxygen requirement See above note about meeting with Daughter on 07/23 and 07/26. Daughter still desires full code and aggressive care -Titrate oxygen via trach to maintain O2 saturation above 92% -Continue tube fees at 45ml/hr 24 hours per day thru peg Tube -Neurosurgery, neurology and palliative care have all been consulted in the past and agree with very poor prognosis with no meaningful neurologic recovery. History and imaging: Patient found minimally responsive with neurological deficits around 0820 04/24. Stat CT of head was ordered, which showed large left MCA infarct. Diffuse edema throughout the left MCA distribution, suggested completed infarct. This was discussed and was not a candidate for intracranial intervention. CT (04/30): Reduction in midline shift to 11mm. Unchanged large left MCA infarction. CT head (05/06) shows: Evolving large left-sided MCA territory infarct with minimally improved [id number] subfalcine shift. No intercurrent hemorrhage or other acute abnormality. Echocardiogram- The left ventricular systolic function is low normal with an estimated ejection fraction in the range of 50-55%. Mild concentric left ventricular hypertrophy. Normal left ventricular size. Cnkiv-ls-hebe mitral valve regurgitation. Carotid Artery US- No hemodynamically significant carotid stenosis (4) UTI (urinary tract infection) ICD Codes: N39.0 - Urinary tract infection, site not specified Status: Resolved Plan: UCx on 07/15 positive for E coli Repeat UCx on 07/20 positive for C. Freundii UCx 07/24 grew only yeast; no bacteria - See above for antibiotic history and coverage (5) Sacral decubitus ulcer ICD Codes: L89.159 - Pressure ulcer of sacral region, unspecified stage Status: Chronic Plan: Patient with Stage II pressure injury over the coccyx -Wound care consult appreciated: 1. Please cleanse coccyx wound every 3 days and PRN for soiling. 2. Apply Calcium Alginate to open wound bed. 3. Secure with bordered gauze every 3 days and PRN for soiling. 4. Continue to turn patient every 2 hours or PRN for comfort. 5. Use one ultrasorb for moisture. Please use flat sheet for repositioning. (6) Anemia ICD Codes: D64.9 - Anemia, unspecified Status: Chronic Plan: s/p 1u of PRBC on 05/28/17. Hgb stable Hemoccult negative on 05/29 - monitor H&H periodically (7) Urinary retention ICD Codes: R33.9 - Retention of urine, unspecified Status: Chronic Plan: - Cath last changed 07/15, pt afebrile - Urine output WNL (8) Type 2 diabetes mellitus ICD Codes: E11.9 - Type 2 diabetes mellitus without complications Status: Chronic Plan: -continue to monitor BSG -Continue Levemir 7 units q 12 hrs -Will continue to monitor -Glucerna for PEG tube feedings @ 45 ml/hr -Glucagon 1 mg per PRN protocol for hypoglycemia BS <70mg/dL History Admitted for DKA which has now resolved. Hemoglobin A1C 12.9 04/2017 (9) Hip fracture ICD Codes: S72.009A - Fracture of unspecified part of neck of unspecified femur , initial encounter for closed fracture Status: Resolved Plan: S/P left hip reduction and intramedullary nail fixation on 04-21-17 -c/w Calcium/Vitamin D (10) Hypertension ICD Codes: I10 - Essential (primary) hypertension Status: Chronic Plan: -Antihypertensives to keep SBP<160 -c/w clonidine 0.1mg Q6h PRN SBP >160 -c/w lisinopril 40mg Q12h po Echocardiogram 04/24 - EF 50 to 55%. Mild concentric LVH. (11) Fluids, Electrolytes, and Nutrition Status: Acute Plan: Fluids: through PEG tube Electrolyte: Continue to monitor periodically, replete as needed Nutrition: continuous Glucerna tube feeds and free water, pump at 45mls/hr, tolerating feeds well, no residual. Protein 1 pack TID. Supplements: calcium TID and vit D3 QD DVT ppx: SCDs/heparin CVA ppx: aspirin 325 mg QD GI ppx: Lansoprazole 30mg qd via NG Problem Qualifiers (1) Chronic respiratory failure: Qualified Codes: J96.11 - Chronic respiratory failure with hypoxia (2) UTI (urinary tract infection): Qualified Codes: N39.0 - Urinary tract infection, site not specified (3) Sacral decubitus ulcer: Qualified Codes: L89.154 - Pressure ulcer of sacral region, stage 4 (4) Type 2 diabetes mellitus: Qualified Codes: E11.9 - Type 2 diabetes mellitus without complications (5) Hip fracture: (6) Hypertension: Qualified Codes: I10 - Essential (primary) hypertension Jose R Soriano MD R1 Aug 28, 2017 10:26
--- NOTE | 2017-08-28 14:33 | HHI.HCPN ---
Reason for visit a. To assist with evaluation and management of symptoms including: Debility and pain. b. To assist medical decision maker(s) with: better understanding of current medical conditions; weighing benefits/burdens of medical treatment options; making medical treatment decisions. . Subjective/Interval History Mrs. Hein is a 77-year-old female with a past medical history of hypertension, diabetes mellitus and CVA who presented to the ED on 04/20/17 via EMS for evaluation of after a fall. Patient underwent Left hip reduction and intramedullary nail fixation on 04/21/17. Clinical course complicated by large left MCA infarct with diffuse edema throughout the left MCA distribution. Medical course further complicated by prolonged hospitalization, tracheostomy status post prolonged ventilation support, pneumonia, deconditioning. Palliative care following for emotional support and further clarifications of goals of care given poor prognosis. Patient seen in her room, resting in bed in no acute distress. Eyes closed, unresponsive to verbal or tactile stimuli. Facial grimacing noted with extremities movement. Currently on T-piece, 6L 28% FiO2. Chest x-ray today revealing unchanged bilateral airspace disease and effusions. Sputum culture revealing Pseudomonas Aeruginosa, multidrug resistant. Infectious disease, Dr. Bo consulted 08/27/17. Patient with history of positive cultures during this hospitalization with different bacteria including gram- negative in the sputum and urine. Positive Pseudomonas in July 2017. 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 Patient with no acute respiratory problems at this time, I do recommends no further sputum cultures given multidrug resistance. Patient afebrile, stable hemodynamically. Laboratory today revealing WBC 10.0, Hgb 12.0 , platelet count 246. Telephone call to patient's daughter Trice Salvador. Medical update provided. Reviewed [id number] Pseudomonas colonization. Reviewed likely trajectory of patient's illness given no meaningful neurological recovery in 4 months poststroke. Patient remains bedbound, O2 dependent, minimally responsive and total care. Reviewed that patient will continue experiencing progressive decline given her chronic condition to include recurrent infections , persistent respiratory failure, pressure ulcers and profound physical deconditioning. Reviewed with daughter that clinical recovery is not anticipated given the above. Reviewed poor prognosis, likely life expectancy of 6 months or less given progressive decline and recurrent infections,now multidrug-resistant. Reviewed treatment options to include continuation of aggressive management vs. transition to comfort-directed care with hospice give poor prognosis. Daughter wishing to continue aggressive management, she was encouraged to further discuss with attending and infectious disease. Case discussed with Dr. Bo. . Family/friend interactions See interval note. . Advance Directives Living Will: Never completed Health Care Surrogate: Never completed Durable Power of [employer] Priming Operator: Never completed Advance Directive Specifics Health Care Surrogate(s): No advance directives completed. As per [place] statute, healthcare proxy decision making falls to patient's only daughter Norma Salvador. . Documented care wishes: No living will completed. . Significant change in goals: Goals remain aggressive. . Objective Vital Signs Date Time Temp Pulse Resp B/P (MAP) Pulse Ox O2 Delivery O2 Flow Rate FiO2 08/28/17 12:00 95.6 54 18 104/45 (64) 97 08/28/17 11:41 97 T-piece 28 08/28/17 08:00 97 Mechanical Ventilator 6.00 28 Trach Collar T-Piece 08/28/17 08:00 95.6 72 18 162/71 (101) 97 08/28/17 04:00 96.8 78 18 165/77 (106) 96 08/28/17 00:36 97.0 83 18 168/81 (110) 99 08/27/17 20:00 96.3 70 18 144/84 (104) 99 08/27/17 19:00 Trach Collar 6.00 25 T-Piece 08/27/17 18:32 98 T-piece 6.00 35 08/27/17 17:28 98 T-piece 6.00 35 08/27/17 16:00 96.5 79 17 158/77 (104) 98 Intake & Output 08/28/17 08/28/17 07:00 19:00 Intake Total 0 ml Output Total 610 ml Balance -610 ml Intake Oral 0 ml Output Urine Total 610 ml Physical Exam CONSTITUTIONAL/GENERAL: This is an elderly , ill looking female resting in bed in no acute distress. TUBES/LINES/DRAINS: PIV's. Tracheostomy on T piece, SCD, Leavitt catheter, left soft wrist restraint, PEG tube. SKIN: Pale. No jaundice, rashes, or lesions. Ecchymoses on upper extremities. Skin temperature appropriate. Not diaphoretic. NECK: Trachea midline. Supple. Tracheostomy in place. CARDIOVASCULAR: Regular rate and rhythm. Peripheral pulses symmetric. RESPIRATORY/CHEST: Symmetric, tracheostomy. Clear, diminished breath sounds bilaterally. GASTROINTESTINAL: Abdomen soft, round, non-distended. Bowel sounds present. PEG tube in place. GENITOURINARY: Without palpable bladder distension. Leavitt catheter in place. MUSCULOSKELETAL: Extremities without clubbing, cyanosis. Muscle wasting to all 4 extremities. NEUROLOGICAL: Eyes opening spontaneously, not to command, not tracking. PSYCHIATRIC: Unable to evaluate secondary to clinical condition. Appears calm. . Diagnostic Tests Laboratory Laboratory Tests Test 08/27/17 09:45 08/28/17 09:10 White Blood Count 10.1 TH/MM3 (4.0-11.0) 10.0 TH/MM3 (4.0-11.0) Red Blood Count 3.53 MIL/MM3 (4.00-5.30) 3.66 MIL/MM3 (4.00-5.30) Hemoglobin 11.6 GM/DL (11.6-15.3) 12.0 GM/DL (11.6-15.3) Hematocrit 34.5 % (35.0-46.0) 35.7 % (35.0-46.0) Mean Corpuscular Volume 97.6 FL (80.0-100.0) 97.3 FL (80.0-100.0) Mean Corpuscular Hemoglobin 32.8 PG (27.0-34.0) 32.8 PG (27.0-34.0) Mean Corpuscular Hemoglobin Concent 33.6 % (32.0-36.0) 33.7 % (32.0-36.0) Red Cell Distribution Width 15.8 % (11.6-17.2) 16.0 % (11.6-17.2) Platelet Count 252 TH/MM3 (150-450) 246 TH/MM3 (150-450) Mean Platelet Volume 10.3 FL (7.0-11.0) 10.5 FL (7.0-11.0) Neutrophils (%) (Auto) 65.8 % (16.0-70.0) Lymphocytes (%) (Auto) 19.1 % (9.0-44.0) Monocytes (%) (Auto) 7.3 % (0.0-8.0) Eosinophils (%) (Auto) 6.5 % (0.0-4.0) Basophils (%) (Auto) 1.3 % (0.0-2.0) Neutrophils # (Auto) 6.6 TH/MM3 (1.8-7.7) Lymphocytes # (Auto) 1.9 TH/MM3 (1.0-4.8) Monocytes # (Auto) 0.7 TH/MM3 (0-0.9) Eosinophils # (Auto) 0.7 TH/MM3 (0-0.4) Basophils # (Auto) 0.1 TH/MM3 (0-0.2) CBC Comment DIFF FINAL Differential Comment Blood Urea Nitrogen 44 MG/DL (7-18) 45 MG/DL (7-18) Creatinine 0.35 MG/DL (0.50-1.00) 0.44 MG/DL (0.50-1.00) Random Glucose 217 MG/DL (74-106) 166 MG/DL (74-106) Calcium Level 9.3 MG/DL (8.5-10.1) 9.2 MG/DL (8.5-10.1) Sodium Level 138 MEQ/L (136-145) 142 MEQ/L (136-145) Potassium Level 4.7 MEQ/L (3.5-5.1) 4.6 MEQ/L (3.5-5.1) Chloride Level 105 MEQ/L (98-107) 105 MEQ/L (98-107) Carbon Dioxide Level 29.2 MEQ/L (21.0-32.0) 30.8 MEQ/L (21.0-32.0) Anion Gap 4 MEQ/L (5-15) 6 MEQ/L (5-15) Estimat Glomerular Filtration Rate 182 ML/MIN (>89) 139 ML/MIN (>89) Result Diagram: 08/28/17 0910 08/28/17 0910 Microbiology Microbiology Date/Time Source Procedure Growth Status 08/25/17 14:15 Sputum Oral Tracheal Aspirate Gram Stain - Final Complete 08/25/17 14:15 Sputum Culture - Final Pseudomonas Aeruginosa Complete Imaging Last 48 hours Impressions Chest X-Ray 08/28/17 0600 Signed Impressions: Service Date/Time: August 06:28 - CONCLUSION: No significant change. Bilateral airspace disease and effusions remain. Jose R Casanova MD Procedures * 08/05/17 -right thoracentesis * 05/16/17 -PEG tube placement * 05/15/17 -tracheostomy placement * 05/08/17 -left-sided chest tube/pigtail * 04/30/17 -endotracheal intubation * 04/21/17 -Left hip reduction and intramedullary nail fixation . 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 (2) Pain 0-10 Scale: Unable to quantify Comment: Secondary to surgical intervention, bedbound status, prolonged hospitalization. (3) Debility 0-10 Scale: Unable to quantify Comment: Progressive. Pertinent Non-Medical Issues Psychosocial: Patient is originally from [facility]. Residing in [place] up until 2013 she moved to [place] to live with only daughter Trice. Patient is a , in 2006. Spiritual: No pentecostal affiliation. Legal: No advance directives completed. Ethical issues impacting care: Patient unable to participating in medical decision-making secondary to clinical condition. Patient's daughter acting as healthcare proxy decision maker. . Important Contacts Daughter Norma Salvador . . Prognosis Mrs. Hein needs a 76-year-old female with a past medical history of hypertension, diabetes mellitus and prior CVA. Presented with left hip fracture , underwent ORIF. Clinical course complicated by large left MCA infarct with edema. Overall prognosis is poor for a meaningful neurological recovery or long -term survival given acute stroke, chronic ongoing comorbidities and advanced age. Patient appears hospice appropriate should family elect comfort-directed care. . Code Status: Full Code Plan * CODE STATUS: FULL CODE. * HEALTHCARE DECISION-MAKING: Patient not capacitated for medical decision- making given severe large stroke, not expected to regain capacity. No advance directives completed, patient is . As per [place] statute, healthcare proxy decision-making falls to patient's only daughter Trice Salvador. * GOALS OF CARE: 08/28/17 -Daughter Trice Salvador acting as healthcare proxy decision maker is electing to continue aggressive management to include FULL code. * Telephone call to patient's daughter Trice Salvador. Medical update provided. Reviewed [id number] Pseudomonas colonization. Reviewed likely trajectory of patient's illness given no meaningful neurological recovery in 4 months poststroke. Patient remains bedbound, O2 dependent, minimally responsive and total care. Reviewed that patient will continue experiencing progressive decline given her chronic condition to include recurrent infections, persistent respiratory failure, pressure ulcers and profound physical deconditioning. Reviewed with daughter that clinical recovery is not anticipated given the above. Reviewed poor prognosis, likely life expectancy of 6 months or less given progressive decline and recurrent infections,now multidrug-resistant. Reviewed treatment options to include continuation of aggressive management vs. transition to comfort-directed care with hospice give poor prognosis. Daughter wishing to continue aggressive management, she was encouraged to further discuss with attending and infectious disease. * SYMPTOMS: * = Shortness of breath, multifactorial. Secondary to altered mental status/CVA , pneumonia, lethargy. Now trached and on T piece. Sputum culture 08/25/17 growing Pseudomonas Aeruginosa -multidrug-resistant. ID and pulmonology following. = Pain, secondary to bedbound state, tracheostomy, pressure ulcers , prolonged hospitalization. Patient does not appear to be in pain at this time. = Debility, progressive. Likely to continue to worsen given recent acute stroke and prolonged hospitalization. * Case discussed with Dr. Bo. * Palliative care contact information has been provided to patient's daughter. * Palliative care will continue to follow-up as needed for further clarifications of goals of care as patient's clinical condition continues to evolve. Goals of therapy are established at this time. . Time Spent Total Floor Time (mins): 38 (Total time to include review medical records, physical exam, goals of care conversation with patient's daughter Norma.) >50% Counseling/Coord of Care: Yes Attestation To help prompt me to consider important information that might be impacting today's encounter and assessment, information from prior notes written by myself or my colleagues may have been "brought forward" into today's note. My signature on this note, however, is an attestation that I personally performed the exam, history, and/or decision-making noted today, and, unless otherwise indicated, the interactions with patient, family, and staff as well as the review of records all occurred today. I also attest that the listed assessment and stated plan reflect my best clinical judgment today based on the combination of historical information, prior notes, and today's exam/ interactions. When time spent is documented, it refers only to time spent today by the signer, or if indicated, combined time spent today by collaborating physician/nurse practitioner. Ashly Steven Aug 28, 2017 14:33
--- NOTE | 2017-08-28 19:01 | HHI.PR ---
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 opens eyes, No new complaint no fever Sp Pseudomonas Objective Vital Signs Vital Signs Date Time Temp Pulse Resp B/P (MAP) Pulse Ox O2 Delivery O2 Flow Rate FiO2 08/28/17 16:00 96.3 67 18 139/61 (87) 92 08/28/17 12:00 95.6 54 18 104/45 (64) 97 08/28/17 11:41 97 T-piece 28 08/28/17 08:00 97 Mechanical Ventilator 6.00 28 Trach Collar T-Piece 08/28/17 08:00 95.6 72 18 162/71 (101) 97 08/28/17 04:00 96.8 78 18 165/77 (106) 96 08/28/17 00:36 97.0 83 18 168/81 (110) 99 08/27/17 20:00 96.3 70 18 144/84 (104) 99 I/O 08/27/17 08/27/17 08/27/17 08/28/17 08/28/17 08/28/17 07:00 15:00 23:00 07:00 15:00 23:00 Intake Total 0 ml 0 ml 297 ml Output Total 1000 ml 1085 ml 200 ml 475 ml Balance -1000 ml -1085 ml -200 ml -178 ml Intake Oral 0 ml 0 ml 0 ml Tube Feeding 267 ml Other 30 ml Output Urine Total 1000 ml 1085 ml 200 ml 475 ml # Bowel Movements 2 1 0 Result Diagram: 08/28/17 0910 08/28/17 0910 Objective Remarks GENERAL: Elderly female,NAD SKIN: Warm and dry. HEAD: Normocephalic. EYES: No scleral icterus. No injection or drainage. NECK: Supple, trachea midline. No JVD or lymphadenopathy. CARDIOVASCULAR: Regular rate and rhythm without murmurs, gallops, or rubs. RESPIRATORY: Breath sounds equal bilaterally. No accessory muscle use. GASTROINTESTINAL: Abdomen soft, non-tender, nondistended. MUSCULOSKELETAL: No cyanosis, or edema. BACK: Nontender without obvious deformity. No CVA tenderness. A/P Assessment and Plan RF,S/P Trach CVA Pneumonia Pleural effusion Pseudomonas Tracheobronchitis, ? colonisation PLAN: Cont trach collar Aerosol nebs Supplement 02 Trach care TF ID Following, no Abx Chris Rizo MD Aug 28, 2017 19:01
[2017-08-29] VITALS (10 sets, daily range): BP systolic 148–172; BP diastolic 65–81; PULSE 70–87; RESP 16–18; TEMP 95.4–97.8; O2SAT 91–100
[2017-08-29] MEDS: INSULIN ASPART SUPPLEMENTAL SCALE SQ SCH ×4 (00:14→17:42)
[2017-08-29] MEDS: ARTIFICIAL TEARS OPTH SOLN 15 ML BTL EACH EYE SCH ×3 (06:19→22:14)
[2017-08-29] MEDS: HEPARIN SODIUM - SQ 10,000 UNITS/ML VIAL SQ SCH ×3 (06:19→21:54)
[2017-08-29] MEDS: INSULIN DETEMIR 100 UNITS/ML VIAL SQ SCH ×2 (09:00→21:54)
[2017-08-29] MEDS: SODIUM CHLORIDE 0.9% FLUSH 5 ML FLUSH IV FLUSH SCH ×2 (09:00→21:00)
[2017-08-29] MEDS: BENEPROTEIN POWDER 1 PACK G-TUBE SCH ×3 (09:00→17:43)
[2017-08-29] MEDS: POLYETHYLENE GLYCOL 17 GM PKG PEG SCH (10:06)
[2017-08-29] MEDS: LANSOPRAZOLE SOLUTAB 30 MG TAB NG SCH (10:06)
[2017-08-29] MEDS: CALCIUM/VITAMIN D 250 MG/125 U TAB PO SCH ×3 (10:06→17:42)
[2017-08-29] MEDS: LISINOPRIL 20 MG TAB PO SCH ×2 (10:06→21:55)
[2017-08-29] MEDS: CHOLECALCIFEROL (VIT D3) 5000 UNIT CAP PO SCH (10:06)
[2017-08-29] MEDS: ASPIRIN 325 MG TAB DOBHOFF SCH (10:06)
--- NOTE | 2017-08-29 10:21 | HHI.FPPN ---
Subjective Remarks Patient seen and examined this morning. Sleeping. Poorly responsive to painful stimuli. Occasional spontaneous movement, does not verbally respond to speech. Afebrile overnight. Objective Vitals Vital Signs Date Time Temp Pulse Resp B/P (MAP) Pulse Ox O2 Delivery O2 Flow Rate FiO2 08/29/17 08:49 98 T-piece 6.00 28 08/29/17 08:48 98 T-piece 6.00 28 08/29/17 08:00 97.2 82 17 148/77 (100) 91 08/29/17 04:00 97.1 82 16 172/79 (110) 99 08/29/17 02:15 99 T-piece 5.00 28 08/29/17 00:00 97.8 81 16 162/73 (102) 97 08/28/17 21:49 97 T-piece 5.00 28 08/28/17 20:00 96.6 69 16 147/71 (96) 99 08/28/17 19:00 Trach Collar 6.00 28 08/28/17 16:00 96.3 67 18 139/61 (87) 92 08/28/17 12:00 95.6 54 18 104/45 (64) 97 08/28/17 11:41 97 T-piece 28 I/O 08/28/17 08/28/17 08/28/17 08/29/17 08/29/17 08/29/17 07:00 15:00 23:00 07:00 15:00 23:00 Intake Total 0 ml 297 ml 0 ml Output Total 200 ml 650 ml 300 ml Balance -200 ml -353 ml -300 ml Intake Oral 0 ml 0 ml 0 ml Tube Feeding 267 ml Other 30 ml Output Urine Total 200 ml 650 ml 300 ml # Bowel Movements 0 Result Diagram: 08/28/17 0910 08/28/17 0910 Objective Remarks GEN: Appears comfortable. NAD. Trach and PEG. Lists to the left. HEAD: Right side facial droop. LUNGS: Decreased sounds in b/l bases, breathing spontaneously via T-piece (6L; FiO2 35%). CARDIOVASCULAR: NRRR, normal S1/S2, no murmur. Grossly normal peripheral perfusion GI/ABD: Soft, non-distended. NEURO: Did not open eyes to sternal rubbing. Flaccid paralysis on the right side. MUSC: No calf asymmetry appreciated SKIN: Sacrum not inspected today(08/27); previously sacral pressure ulcer extended from anus to coccyx; stage II EXTREMITIES: Trace edema bilaterally Other: urinary catheter in place. Procedures ORIF 04/21/17 Intubation 04/30/17 Chest tube placement 05/07/17, removed 05/12/17 Trach placement 05/15/17 PEG tube placement 05/16/17 A/P Assessment and Plan 76 y/o female with HTN, DM admitted for DKA and hip fracture s/p large CVA after ORIF she is currently stable with her current treatment but has had no meaningful functional recovery and do not anticipate any further neurologic recovery from here on. Dr. Harper, Dr. Tran and case management had a long discussion with the daughter on 07/23 and the patient's daughter is still hopeful for full recovery for her mom in spite of her mom's state of health since her CVA. DW the daughter that it is our belief based on her clinical picture that she will not make any sort of meaningful recovery and will remain on the trach and PEG for the rest of her life. DW the daughter due to her status that the patient will likely continue to decline and continue to acquire infections associated with this type of clinical picture including UTI, PNA, and sepsis. DW the daughter to consider the QOL that her mother would have wanted. We recommend that this patient receive Hospice services as we would not anticipate her living longer than 6 months. The daughter does not want to consider this at this time and she is the sole decision maker for this patient. In that case, we will continue to treat the patient aggressively as issues arise and honor the families wishes. A one-hour long family meeting was held (07/26) with patient's daughter Dr. Meredith Carnes, Dr. Watts and patient's nurse to discuss patient's poor prognosis. We felt it was important to listen to daughter's perspective and address any questions or concerns she has about her mother's care. Patient goals of care were also discussed. Daughter still wants aggressive treatment. Daughter was informed that from our medical standpoint we do not anticipated any meaningful recovery from her mother's current baseline. Neither do we anticipate for mother to be able to get off PEG tube feeds and trach. However, we will continue to honor daughter's wishes and provide aggressive medical care. ID and pulmonology are actively following. Patient is currently being treated for MDR pseudomonas pna and pulmonology recommended bronchoscopy. Risk and benefits of the procedure were explained and discussed with daughter. The option for her mother not to have the bronchoscopy and to instead continue treatment with antibiotics was also discussed. She is currently unsure about the procedure. She was advised to take time to think about her decision keeping in mind what her mother's wishes would be. 08/02- Daughter at bedside. I had a long discussion with the daughter. Discussed with her about patient's unchanged status. She agreed to thoracentesis done on 08/05. She still wants aggressive care for her mother. 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 Rizo), recommended bronchoscopy procedure, daughter refused -Aerosol nebs -Supplement O2 -TF -Pseudomonas (mcdonald-resistant) on sputum culture 08/25 Impression: No respiratory symptoms or leukocytosis to suggest pneumonia at this time -ID suggest likely colonization at this time, will hold off on cultures unless symptomatic or acute changes present. No antibiotics at this time. -Chest x-ray with no significant change Impression/History: At this point, respiratory failure is chronic on T-tube Hospital Acquired PNA on 07/21 CXR 08/01 demonstrating bilateral airspace disease and effusions, R>L US chest wall 08/02- moderate right pleural effusion. - Consulted IR for US guided thoracentesis, performed on 08/05 removing 1450 cc of clear yellow fluid - Pleural fluid culture from 08/05 with no growth after 72 hours Legionella and S pneumonia urine antigen negative Infection History Pseudomonas hospital-acquired pneumonia - resolved MSSA bacteremia - resolved Serratia/staph aureus pneumonia - resolved C glabrata UTI - resolved Citrobacter UTI - resolved Serratia/MSSA sputum VAP - resolved Antibiotic History Cefazolin: 04/21-04/22, 05/15-05/16 Cefepime: 04/30-05/04, 05/27-06/03 Ceftrioxone 05/26-05/27 Erythromycin 06/16-06/18, 06/19 Gentamicin 04/21 vancomycin 04/30-05/04, 06/21-06/23 Zosyn 07/21 - 07/25 Azithromycin 07/21 - 07/25 Fluconazole 04/29 - ; 07/26 ceftolozane/ tazobactam 07/25 - 08/06 Colistin nebs q8h 08/06 - 08/11 (2) Pleural effusion ICD Codes: J90 - Pleural effusion, not elsewhere classified Status: Acute Plan: US chest 08/01 demonstrating moderate right pleural effusion Consulted IR for US guided thoracentesis, performed on 08/05 removing 1450 cc of clear yellow fluid - Pleural fluid culture from 08/05 with no growth after 72 hours Further plan as above -Repeat CXR 08/27 with no significant change (3) Acute CVA (cerebrovascular accident) ICD Codes: I63.9 - Cerebral infarction, unspecified Status: Chronic Plan: Neurologically stable, no improvement. Overall prognosis is poor. Persistent oxygen requirement See above note about meeting with Daughter on 07/23 and 07/26. Daughter still desires full code and aggressive care -Titrate oxygen via trach to maintain O2 saturation above 92% -Continue tube fees at 45ml/hr 24 hours per day thru peg Tube -Neurosurgery, neurology and palliative care have all been consulted in the past and agree with very poor prognosis with no meaningful neurologic recovery. History and imaging: Patient found minimally responsive with neurological deficits around 0820 04/24. Stat CT of head was ordered, which showed large left MCA infarct. Diffuse edema throughout the left MCA distribution, suggested completed infarct. This was discussed and was not a candidate for intracranial intervention. CT (04/30): Reduction in midline shift to 11mm. Unchanged large left MCA infarction. CT head (05/06) shows: Evolving large left-sided MCA territory infarct with minimally improved [id number] subfalcine shift. No intercurrent hemorrhage or other acute abnormality. Echocardiogram- The left ventricular systolic function is low normal with an estimated ejection fraction in the range of 50-55%. Mild concentric left ventricular hypertrophy. Normal left ventricular size. Uenfm-fk-olof mitral valve regurgitation. Carotid Artery US- No hemodynamically significant carotid stenosis (4) UTI (urinary tract infection) ICD Codes: N39.0 - Urinary tract infection, site not specified Status: Resolved Plan: UCx on 07/15 positive for E coli Repeat UCx on 07/20 positive for C. Freundii UCx 11/23 grew only yeast; no bacteria - See above for antibiotic history and coverage (5) Sacral decubitus ulcer ICD Codes: L89.159 - Pressure ulcer of sacral region, unspecified stage Status: Chronic Plan: Patient with Stage II pressure injury over the coccyx -Wound care consult appreciated: 1. Please cleanse coccyx wound every 3 days and PRN for soiling. 2. Apply Calcium Alginate to open wound bed. 3. Secure with bordered gauze every 3 days and PRN for soiling. 4. Continue to turn patient every 2 hours or PRN for comfort. 5. Use one ultrasorb for moisture. Please use flat sheet for repositioning. (6) Anemia ICD Codes: D64.9 - Anemia, unspecified Status: Chronic Plan: s/p 1u of PRBC on 05/28/17. Hgb stable Hemoccult negative on 05/29 - monitor H&H periodically (7) Urinary retention ICD Codes: R33.9 - Retention of urine, unspecified Status: Chronic Plan: - Cath last changed 07/15, pt afebrile - Urine output WNL (8) Type 2 diabetes mellitus ICD Codes: E11.9 - Type 2 diabetes mellitus without complications Status: Chronic Plan: -continue to monitor BSG -Continue Levemir 7 units q 12 hrs -Will continue to monitor -Glucerna for PEG tube feedings @ 45 ml/hr -Glucagon 1 mg per PRN protocol for hypoglycemia BS <70mg/dL History Admitted for DKA which has now resolved. Hemoglobin A1C 12.9 04/2017 (9) Hip fracture ICD Codes: S72.009A - Fracture of unspecified part of neck of unspecified femur , initial encounter for closed fracture Status: Resolved Plan: S/P left hip reduction and intramedullary nail fixation on 04-21-17 -c/w Calcium/Vitamin D (10) Hypertension ICD Codes: I10 - Essential (primary) hypertension Status: Chronic Plan: -Antihypertensives to keep SBP<160 -c/w clonidine 0.1mg Q6h PRN SBP >160 -c/w lisinopril 40mg Q12h po Echocardiogram 04/24 - EF 50 to 55%. Mild concentric LVH. (11) Fluids, Electrolytes, and Nutrition Status: Acute Plan: Fluids: through PEG tube Electrolyte: Continue to monitor periodically, replete as needed Nutrition: continuous Glucerna tube feeds and free water, pump at 45mls/hr, tolerating feeds well, no residual. Protein 1 pack TID. Supplements: calcium TID and vit D3 QD DVT ppx: SCDs/heparin CVA ppx: aspirin 325 mg QD GI ppx: Lansoprazole 30mg qd via NG Problem Qualifiers (1) Chronic respiratory failure: Qualified Codes: J96.11 - Chronic respiratory failure with hypoxia (2) UTI (urinary tract infection): Qualified Codes: N39.0 - Urinary tract infection, site not specified (3) Sacral decubitus ulcer: Qualified Codes: L89.154 - Pressure ulcer of sacral region, stage 4 (4) Type 2 diabetes mellitus: Qualified Codes: E11.9 - Type 2 diabetes mellitus without complications (5) Hip fracture: (6) Hypertension: Qualified Codes: I10 - Essential (primary) hypertension Jose R Soriano MD R1 Aug 29, 2017 10:21
--- NOTE | 2017-08-29 16:00 | HHI.HCPN ---
Reason for visit a. To assist with evaluation and management of symptoms including: Debility and pain. b. To assist medical decision maker(s) with: better understanding of current medical conditions; weighing benefits/burdens of medical treatment options; making medical treatment decisions. . Subjective/Interval History Mrs. Hein is a 77-year-old female with a past medical history of hypertension, diabetes mellitus and CVA who presented to the ED on 04/20/17 via EMS for evaluation of after a fall. Patient underwent Left hip reduction and intramedullary nail fixation on 04/21/17. Clinical course complicated by large left MCA infarct with diffuse edema throughout the left MCA distribution. Medical course further complicated by prolonged hospitalization, tracheostomy status post prolonged ventilation support, pneumonia, deconditioning. Palliative care following for emotional support and further clarifications of goals of care given poor prognosis. Patient seen in her room, resting in bed in no acute distress. Eyes open, not tracking or following any commands. Not attempting to communicate. Currently on T-piece, 6L 28% FiO2. Sputum culture 08/25/17 revealing Pseudomonas Aeruginosa, multidrug resistant. Infectious disease following. Patient afebrile, stable hemodynamically. No new laboratory or imaging for review. Follow-up telephone call to patient's daughter Trice Salvador. No answer, left message on voicemail. Long conversation with patient's daughter yesterday in which we discussed likely trajectory of patient's illness given no meaningful neurological recovery in 4 months poststroke. Reviewed that patient will continue experiencing progressive decline given her chronic condition to include recurrent infections, persistent respiratory failure, pressure ulcers and profound physical deconditioning. Reviewed with daughter that clinical recovery is not anticipated given the above. Reviewed poor prognosis, likely life expectancy of 6 months or less given progressive decline and recurrent infections,now multidrug-resistant. Reviewed treatment options to include continuation of aggressive management vs. transition to comfort-directed care with hospice give poor prognosis. Daughter was encouraged to discuss with medical team. . Family/friend interactions No family at bedside. . Advance Directives Living Will: Never completed Health Care Surrogate: Never completed Durable Power of Sales Representative [employer] Service: Never completed Advance Directive Specifics Health Care Surrogate(s): No advance directives completed. As per [place] statute, healthcare proxy decision making falls to patient's only daughter Norma Salvador. . Documented care wishes: No living will completed. . Significant change in goals: Goals of care remain unchanged. . Objective Vital Signs Date Time Temp Pulse Resp B/P (MAP) Pulse Ox O2 Delivery O2 Flow Rate FiO2 08/29/17 12:00 97.4 78 18 161/74 (103) 100 08/29/17 08:49 98 T-piece 6.00 28 08/29/17 08:48 98 T-piece 6.00 28 08/29/17 08:00 97.2 82 17 148/77 (100) 91 08/29/17 04:00 97.1 82 16 172/79 (110) 99 08/29/17 02:15 99 T-piece 5.00 28 08/29/17 00:00 97.8 81 16 162/73 (102) 97 08/28/17 21:49 97 T-piece 5.00 28 08/28/17 20:00 96.6 69 16 147/71 (96) 99 08/28/17 19:00 Trach Collar 6.00 28 08/28/17 16:00 96.3 67 18 139/61 (87) 92 Intake & Output 08/29/17 08/29/17 07:00 19:00 Intake Total 0 ml Output Total 475 ml Balance -475 ml Intake Oral 0 ml Output Urine Total 475 ml Physical Exam CONSTITUTIONAL/GENERAL: This is an elderly , ill looking female resting in bed in no acute distress. Bilateral temporal wasting noted. TUBES/LINES/DRAINS: PIV's. Tracheostomy on T piece, SCD, Leavitt catheter, left soft wrist restraint, PEG tube. SKIN: Pale. No jaundice, rashes, or lesions. Ecchymoses on upper extremities. Skin temperature appropriate. Not diaphoretic. NECK: Trachea midline. Supple. Tracheostomy in place. T-piece. CARDIOVASCULAR: Regular rate and rhythm. Peripheral pulses symmetric. RESPIRATORY/CHEST: Symmetric, tracheostomy. Clear, diminished breath sounds bilaterally. GASTROINTESTINAL: Abdomen soft, round, non-distended. Bowel sounds present. PEG tube in place. GENITOURINARY: Without palpable bladder distension. Leavitt catheter in place. MUSCULOSKELETAL: Extremities without clubbing, cyanosis. Muscle wasting to all 4 extremities. NEUROLOGICAL: Eyes opening spontaneously, not to command, not tracking. PSYCHIATRIC: Unable to evaluate secondary to clinical condition. Appears calm. . Diagnostic Tests Laboratory Laboratory Tests Test 08/27/17 09:45 08/28/17 09:10 White Blood Count 10.1 TH/MM3 (4.0-11.0) 10.0 TH/MM3 (4.0-11.0) Red Blood Count 3.53 MIL/MM3 (4.00-5.30) 3.66 MIL/MM3 (4.00-5.30) Hemoglobin 11.6 GM/DL (11.6-15.3) 12.0 GM/DL (11.6-15.3) Hematocrit 34.5 % (35.0-46.0) 35.7 % (35.0-46.0) Mean Corpuscular Volume 97.6 FL (80.0-100.0) 97.3 FL (80.0-100.0) Mean Corpuscular Hemoglobin 32.8 PG (27.0-34.0) 32.8 PG (27.0-34.0) Mean Corpuscular Hemoglobin Concent 33.6 % (32.0-36.0) 33.7 % (32.0-36.0) Red Cell Distribution Width 15.8 % (11.6-17.2) 16.0 % (11.6-17.2) Platelet Count 252 TH/MM3 (150-450) 246 TH/MM3 (150-450) Mean Platelet Volume 10.3 FL (7.0-11.0) 10.5 FL (7.0-11.0) Neutrophils (%) (Auto) 65.8 % (16.0-70.0) Lymphocytes (%) (Auto) 19.1 % (9.0-44.0) Monocytes (%) (Auto) 7.3 % (0.0-8.0) Eosinophils (%) (Auto) 6.5 % (0.0-4.0) Basophils (%) (Auto) 1.3 % (0.0-2.0) Neutrophils # (Auto) 6.6 TH/MM3 (1.8-7.7) Lymphocytes # (Auto) 1.9 TH/MM3 (1.0-4.8) Monocytes # (Auto) 0.7 TH/MM3 (0-0.9) Eosinophils # (Auto) 0.7 TH/MM3 (0-0.4) Basophils # (Auto) 0.1 TH/MM3 (0-0.2) CBC Comment DIFF FINAL Differential Comment Blood Urea Nitrogen 44 MG/DL (7-18) 45 MG/DL (7-18) Creatinine 0.35 MG/DL (0.50-1.00) 0.44 MG/DL (0.50-1.00) Random Glucose 217 MG/DL (74-106) 166 MG/DL (74-106) Calcium Level 9.3 MG/DL (8.5-10.1) 9.2 MG/DL (8.5-10.1) Sodium Level 138 MEQ/L (136-145) 142 MEQ/L (136-145) Potassium Level 4.7 MEQ/L (3.5-5.1) 4.6 MEQ/L (3.5-5.1) Chloride Level 105 MEQ/L (98-107) 105 MEQ/L (98-107) Carbon Dioxide Level 29.2 MEQ/L (21.0-32.0) 30.8 MEQ/L (21.0-32.0) Anion Gap 4 MEQ/L (5-15) 6 MEQ/L (5-15) Estimat Glomerular Filtration Rate 182 ML/MIN (>89) 139 ML/MIN (>89) Result Diagram: 08/28/17 0910 08/28/17 0910 Procedures * 08/05/17 -right thoracentesis * 05/16/17 -PEG tube placement * 05/15/17 -tracheostomy placement * 05/08/17 -left-sided chest tube/pigtail * 04/30/17 -endotracheal intubation * 04/21/17 -Left hip reduction and intramedullary nail fixation . 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 (2) Pain 0-10 Scale: Unable to quantify Comment: Secondary to surgical intervention, bedbound status, prolonged hospitalization. (3) Debility 0-10 Scale: Unable to quantify Comment: Progressive. Pertinent Non-Medical Issues Psychosocial: Patient is [place] from [facility] [facility]. Residing in [place] up until 2013 she moved to [place] to live with only daughter Trice. Patient is a , in 2006. Spiritual: No yazdanism affiliation. Legal: No advance directives completed. Ethical issues impacting care: Patient unable to participating in medical decision-making secondary to clinical condition. Patient's daughter acting as healthcare proxy decision maker. . Important Contacts Daughter Norma Salvaodr . . Prognosis Mrs. Hein needs a 76-year-old female with a past medical history of hypertension, diabetes mellitus and prior CVA. Presented with left hip fracture , underwent ORIF. Clinical course complicated by large left MCA infarct with edema. Overall prognosis is poor for a meaningful neurological recovery or long -term survival given acute stroke, chronic ongoing comorbidities and advanced age. Patient appears hospice appropriate should family elect comfort-directed care. . Code Status: Full Code Plan * CODE STATUS: FULL CODE. * HEALTHCARE DECISION-MAKING: Patient not capacitated for medical decision- making given severe large stroke, not expected to regain capacity. No advance directives completed, patient is . As per [place] statute, healthcare proxy decision-making falls to patient's only daughter Trice Salvador. * GOALS OF CARE: 08/29/17 -Daughter Trice Salvador acting as healthcare proxy decision maker is electing to continue aggressive management to include FULL code. * Likely trajectory of patient's illness was discussed at length with daughter yesterday given no meaningful neurological recovery in 4 months poststroke. Reviewed that patient will continue experiencing progressive decline given her chronic condition to include recurrent infections, persistent respiratory failure, pressure ulcers and profound physical deconditioning. Reviewed with daughter that clinical recovery is not anticipated given the above. Reviewed poor prognosis, likely life expectancy of 6 months or less given progressive decline and recurrent infections,now multidrug-resistant. Reviewed treatment options to include continuation of aggressive management vs. transition to comfort-directed care with hospice give poor prognosis. Daughter was encouraged to discuss with medical team. * SYMPTOMS: * = Shortness of breath, multifactorial. Secondary to altered mental status/CVA , pneumonia, lethargy. Now trached and on T piece. Sputum culture 08/25/17 growing Pseudomonas Aeruginosa -multidrug-resistant. ID and pulmonology following. = Pain, secondary to bedbound state, tracheostomy, pressure ulcers , prolonged hospitalization. Patient does not appear to be in pain at this time. = Debility, progressive. Likely to continue to worsen given recent acute stroke and prolonged hospitalization. * Palliative care contact information has been provided to patient's daughter. * Palliative care will continue to follow-up as needed for further clarifications of goals of care as patient's clinical condition continues to evolve. Goals of therapy are established at this time. . Time Spent Total Floor Time (mins): 21 (Total time to include review medical records, physical exam, telephone call to patient's daughter, case discussion with bedside RN.) >50% Counseling/Coord of Care: Yes Attestation To help prompt me to consider important information that might be impacting today's encounter and assessment, information from prior notes written by myself or my colleagues may have been "brought forward" into today's note. My signature on this note, however, is an attestation that I personally performed the exam, history, and/or decision-making noted today, and, unless otherwise indicated, the interactions with patient, family, and staff as well as the review of records all occurred today. I also attest that the listed assessment and stated plan reflect my best clinical judgment today based on the combination of historical information, prior notes, and today's exam/ interactions. When time spent is documented, it refers only to time spent today by the signer, or if indicated, combined time spent today by collaborating physician/nurse practitioner. Ashly Steven Aug 29, 2017 16:00
--- NOTE | 2017-08-29 17:12 | HHI.PR ---
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 opens eyes, No new complaint no fever Objective Vital Signs Vital Signs Date Time Temp Pulse Resp B/P (MAP) Pulse Ox O2 Delivery O2 Flow Rate FiO2 08/29/17 12:00 97.4 78 18 161/74 (103) 100 08/29/17 08:49 98 T-piece 6.00 28 08/29/17 08:48 98 T-piece 6.00 28 08/29/17 08:00 97.2 82 17 148/77 (100) 91 08/29/17 04:00 97.1 82 16 172/79 (110) 99 08/29/17 02:15 99 T-piece 5.00 28 08/29/17 00:00 97.8 81 16 162/73 (102) 97 08/28/17 21:49 97 T-piece 5.00 28 08/28/17 20:00 96.6 69 16 147/71 (96) 99 08/28/17 19:00 Trach Collar 6.00 28 I/O 08/28/17 08/28/17 08/28/17 08/29/17 08/29/17 08/29/17 07:00 15:00 23:00 07:00 15:00 23:00 Intake Total 0 ml 297 ml 0 ml Output Total 200 ml 650 ml 300 ml Balance -200 ml -353 ml -300 ml Intake Oral 0 ml 0 ml 0 ml Tube Feeding 267 ml Other 30 ml Output Urine Total 200 ml 650 ml 300 ml # Bowel Movements 0 Result Diagram: 08/28/17 0910 08/28/17 0910 Objective Remarks GENERAL: Elderly female,NAD SKIN: Warm and dry. HEAD: Normocephalic. EYES: No scleral icterus. No injection or drainage. NECK: Supple, trachea midline. No JVD or lymphadenopathy. CARDIOVASCULAR: Regular rate and rhythm without murmurs, gallops, or rubs. RESPIRATORY: Breath sounds equal bilaterally. No accessory muscle use. GASTROINTESTINAL: Abdomen soft, non-tender, nondistended. MUSCULOSKELETAL: No cyanosis, or edema. BACK: Nontender without obvious deformity. No CVA tenderness. A/P Assessment and Plan RF,S/P Trach CVA Pneumonia Pleural effusion Pseudomonas Tracheobronchitis, ? colonisation PLAN: Cont trach collar Aerosol nebs Supplement 02 Trach care TF ID Following, no Abx Chris Rizo MD Aug 29, 2017 17:12
[2017-08-30] VITALS (7 sets, daily range): BP systolic 142–168; BP diastolic 69–87; PULSE 74–88; RESP 17; TEMP 95.6–97.6; O2SAT 93–100
[2017-08-30] MEDS: INSULIN ASPART SUPPLEMENTAL SCALE SQ SCH ×4 (01:07→18:36)
[2017-08-30] MEDS: HEPARIN SODIUM - SQ 10,000 UNITS/ML VIAL SQ SCH ×3 (05:37→22:17)
[2017-08-30] MEDS: ARTIFICIAL TEARS OPTH SOLN 15 ML BTL EACH EYE SCH ×3 (05:37→22:15)
[2017-08-30] MEDS: CHOLECALCIFEROL (VIT D3) 5000 UNIT CAP PO SCH (09:50)
[2017-08-30] MEDS: CALCIUM/VITAMIN D 250 MG/125 U TAB PO SCH ×3 (09:50→18:35)
[2017-08-30] MEDS: LISINOPRIL 20 MG TAB PO SCH ×2 (09:50→22:14)
[2017-08-30] MEDS: POLYETHYLENE GLYCOL 17 GM PKG PEG SCH (09:50)
[2017-08-30] MEDS: LANSOPRAZOLE SOLUTAB 30 MG TAB NG SCH (09:50)
[2017-08-30] MEDS: ASPIRIN 325 MG TAB DOBHOFF SCH (09:50)
[2017-08-30] MEDS: SODIUM CHLORIDE 0.9% FLUSH 5 ML FLUSH IV FLUSH SCH ×2 (09:51→21:00)
[2017-08-30] MEDS: INSULIN DETEMIR 100 UNITS/ML VIAL SQ SCH ×2 (09:52→22:15)
[2017-08-30] MEDS: BENEPROTEIN POWDER 1 PACK G-TUBE SCH ×3 (09:52→18:00)
--- NOTE | 2017-08-30 10:45 | HHI.FPPN ---
Subjective Remarks Patient seen and examined this morning. No acute events overnight. Eyes open while in room, could follow commands, would move arm/leg. Does not respond verbally. Afebrile overnight. (Jose R Soriano MD R1) Objective Vitals Vital Signs Date Time Temp Pulse Resp B/P (MAP) Pulse Ox O2 Delivery O2 Flow Rate FiO2 08/30/17 08:00 97.6 74 17 162/83 (109) 98 08/30/17 04:29 100 T-piece 5.00 28 08/30/17 00:00 95.7 87 17 145/87 (106) 95 08/29/17 20:00 95.7 87 17 149/81 (103) 95 08/29/17 20:00 Trach Collar 6.00 28 08/29/17 17:27 100 T-piece 6.00 28 08/29/17 16:00 95.4 70 18 149/65 (93) 100 08/29/17 12:00 97.4 78 18 161/74 (103) 100 I/O 08/29/17 08/29/17 08/29/17 08/30/17 08/30/17 08/30/17 07:00 15:00 23:00 07:00 15:00 23:00 Intake Total 0 ml 0 ml Output Total 300 ml 600 ml 650 ml Balance -300 ml -600 ml -650 ml Intake Oral 0 ml 0 ml Output Urine Total 300 ml 600 ml 650 ml # Bowel Movements 2 2 (Jose R Soriano MD R1) Result Diagram: 08/28/17 0910 08/28/17 0910 Objective Remarks GEN: Appears comfortable. NAD. Trach and PEG. Lists to the left. HEAD: Right side facial droop. LUNGS: Decreased sounds in b/l bases, breathing spontaneously via T-piece (6L; FiO2 35%). CARDIOVASCULAR: NRRR, normal S1/S2, no murmur. Grossly normal peripheral perfusion GI/ABD: Soft, non-distended. NEURO: Did not open eyes to sternal rubbing. Flaccid paralysis on the right side. MUSC: No calf asymmetry appreciated SKIN: Sacrum inspected 08/30; previously sacral pressure ulcer extended from anus to coccyx; stage II, unchanged EXTREMITIES: Trace edema bilaterally Other: urinary catheter in place. Procedures ORIF 04/21/17 Intubation 04/30/17 Chest tube placement 05/07/17, removed 05/12/17 Trach placement 05/15/17 PEG tube placement 05/16/17 (Jose R Soriano MD R1) A/P Assessment and Plan 76 y/o female with HTN, DM admitted for DKA and hip fracture s/p large CVA after ORIF she is currently stable with her current treatment but has had no meaningful functional recovery and do not anticipate any further neurologic recovery from here on. Dr. Harper, Dr. Tran and case management had a long discussion with the daughter on 07/23 and the patient's daughter is still hopeful for full recovery for her mom in spite of her mom's state of health since her CVA. DW the daughter that it is our belief based on her clinical picture that she will not make any sort of meaningful recovery and will remain on the trach and PEG for the rest of her life. DW the daughter due to her status that the patient will likely continue to decline and continue to acquire infections associated with this type of clinical picture including UTI, PNA, and sepsis. DW the daughter to consider the QOL that her mother would have wanted. We recommend that this patient receive Hospice services as we would not anticipate her living longer than 6 months. The daughter does not want to consider this at this time and she is the sole decision maker for this patient. In that case, we will continue to treat the patient aggressively as issues arise and honor the families wishes. A one-hour long family meeting was held (07/26) with patient's daughter Trice, Dr. Harper, Dr. Watts and patient's nurse to discuss patient's poor prognosis. We felt it was important to listen to daughter's perspective and address any questions or concerns she has about her mother's care. Patient goals of care were also discussed. Daughter still wants aggressive treatment. Daughter was informed that from our medical standpoint we do not anticipated any meaningful recovery from her mother's current baseline. Neither do we anticipate for mother to be able to get off PEG tube feeds and trach. However, we will continue to honor daughter's wishes and provide aggressive medical care. ID and pulmonology are actively following. Patient is currently being treated for MDR pseudomonas pna and pulmonology recommended bronchoscopy. Risk and benefits of the procedure were explained and discussed with daughter. The option for her mother not to have the bronchoscopy and to instead continue treatment with antibiotics was also discussed. She is currently unsure about the procedure. She was advised to take time to think about her decision keeping in mind what her mother's wishes would be. 08/02- Daughter at bedside. I had a long discussion with the daughter. Discussed with her about patient's unchanged status. She agreed to thoracentesis done on 08/05. She still wants aggressive care for her mother. Discharge Planning Pending placement, medical case workermanager social work Ramses mendoza [id number] (Jose R Soriano MD R1) Problem List: (1) Chronic respiratory failure ICD Codes: J96.10 - Chronic respiratory failure, unspecified whether with hypoxia or hypercapnia Plan: -Continue respiratory therapy -T-tube supplementation --Pulmonology following (Dr. Rizo), recommended bronchoscopy procedure, daughter refused -Aerosol nebs -Supplement O2 -TF -Pseudomonas (mcdonald-resistant) on sputum culture 08/25 Impression: No respiratory symptoms or leukocytosis to suggest pneumonia at this time -ID suggest likely colonization at this time, will hold off on cultures unless symptomatic or acute changes present. No antibiotics at this time. -Chest x-ray with no significant change Impression/History: At this point, respiratory failure is chronic on T-tube Hospital Acquired PNA on 07/21 CXR 08/01 demonstrating bilateral airspace disease and effusions, R>L US chest wall 08/02- moderate right pleural effusion. - Consulted IR for US guided thoracentesis, performed on 08/05 removing 1450 cc of clear yellow fluid - Pleural fluid culture from 08/05 with no growth after 72 hours Legionella and S pneumonia urine antigen negative Infection History Pseudomonas hospital-acquired pneumonia - resolved MSSA bacteremia - resolved Serratia/staph aureus pneumonia - resolved C glabrata UTI - resolved Citrobacter UTI - resolved Serratia/MSSA sputum VAP - resolved Antibiotic History Cefazolin: 04/21-04/22, 05/15-05/16 Cefepime: 04/30-05/04, 05/27-06/03 Ceftrioxone 05/26-05/27 Erythromycin 06/16-06/18, 06/19 Gentamicin 04/21 vancomycin 04/30-05/04, 06/21-06/23 Zosyn 07/21 - 07/25 Azithromycin 07/21 - 07/25 Fluconazole 04/29 - ; 07/26 ceftolozane/ tazobactam 07/25 - 08/06 Colistin nebs q8h 08/06 - 08/11 (2) Pleural effusion ICD Codes: J90 - Pleural effusion, not elsewhere classified Status: Acute Plan: US chest 08/01 demonstrating moderate right pleural effusion Consulted IR for US guided thoracentesis, performed on 08/05 removing 1450 cc of clear yellow fluid - Pleural fluid culture from 08/05 with no growth after 72 hours Further plan as above -Repeat CXR 08/27 with no significant change (3) Acute CVA (cerebrovascular accident) ICD Codes: I63.9 - Cerebral infarction, unspecified Status: Chronic Plan: Neurologically stable, no improvement. Overall prognosis is poor. Persistent oxygen requirement See above note about meeting with Daughter on 07/23 and 07/26. Daughter still desires full code and aggressive care -Titrate oxygen via trach to maintain O2 saturation above 92% -Continue tube fees at 45ml/hr 24 hours per day thru peg Tube -Neurosurgery, neurology and palliative care have all been consulted in the past and agree with very poor prognosis with no meaningful neurologic recovery. History and imaging: Patient found minimally responsive with neurological deficits around 0820 04/24. Stat CT of head was ordered, which showed large left MCA infarct. Diffuse edema throughout the left MCA distribution, suggested completed infarct. This was discussed and was not a candidate for intracranial intervention. CT (04/30): Reduction in midline shift to 11mm. Unchanged large left MCA infarction. CT head (05/06) shows: Evolving large left-sided MCA territory infarct with minimally improved [id number] subfalcine shift. No intercurrent hemorrhage or other acute abnormality. Echocardiogram- The left ventricular systolic function is low normal with an estimated ejection fraction in the range of 50-55%. Mild concentric left ventricular hypertrophy. Normal left ventricular size. [id number]-[id number] mitral valve regurgitation. Carotid Artery US- No hemodynamically significant carotid stenosis (4) UTI (urinary tract infection) ICD Codes: N39.0 - Urinary tract infection, site not specified Status: Resolved Plan: UCx on 07/15 positive for E coli Repeat UCx on 07/20 positive for C. Freundii UCx 07/24 grew only yeast; no bacteria - See above for antibiotic history and coverage (5) Sacral decubitus ulcer ICD Codes: L89.159 - Pressure ulcer of sacral region, unspecified stage Status: Chronic Plan: Patient with Stage II pressure injury over the coccyx -Wound care consult appreciated: 1. Please cleanse coccyx wound every 3 days and PRN for soiling. 2. Apply Calcium Alginate to open wound bed. 3. Secure with bordered gauze every 3 days and PRN for soiling. 4. Continue to turn patient every 2 hours or PRN for comfort. 5. Use one ultrasorb for moisture. Please use flat sheet for repositioning. (6) Anemia ICD Codes: D64.9 - Anemia, unspecified Status: Chronic Plan: s/p 1u of PRBC on 05/28/17. Hgb stable Hemoccult negative on 05/29 - monitor H&H periodically (7) Urinary retention ICD Codes: R33.9 - Retention of urine, unspecified Status: Chronic Plan: - Cath last changed 07/15, pt afebrile - Urine output WNL (8) Type 2 diabetes mellitus ICD Codes: E11.9 - Type 2 diabetes mellitus without complications Status: Chronic Plan: -continue to monitor BSG -Continue Levemir 7 units q 12 hrs -Will continue to monitor -Glucerna for PEG tube feedings @ 45 ml/hr -Glucagon 1 mg per PRN protocol for hypoglycemia BS <70mg/dL History Admitted for DKA which has now resolved. Hemoglobin A1C 12.9 04/2017 (9) Hip fracture ICD Codes: S72.009A - Fracture of unspecified part of neck of unspecified femur , initial encounter for closed fracture Status: Resolved Plan: S/P left hip reduction and intramedullary nail fixation on 04-21-17 -c/w Calcium/Vitamin D (10) Hypertension ICD Codes: I10 - Essential (primary) hypertension Status: Chronic Plan: -Antihypertensives to keep SBP<160 -c/w clonidine 0.1mg Q6h PRN SBP >160 -c/w lisinopril 40mg Q12h po Echocardiogram 04/24 - EF 50 to 55%. Mild concentric LVH. (11) Fluids, Electrolytes, and Nutrition Status: Acute Plan: Fluids: through PEG tube Electrolyte: Continue to monitor periodically, replete as needed Nutrition: continuous Glucerna tube feeds and free water, pump at 45mls/hr, tolerating feeds well, no residual. Protein 1 pack TID. Supplements: calcium TID and vit D3 QD DVT ppx: SCDs/heparin CVA ppx: aspirin 325 mg QD GI ppx: Lansoprazole 30mg qd via NG (Jose R Soriano MD R1) Problem List: (1) Chronic respiratory failure ICD Codes: J96.10 - Chronic respiratory failure, unspecified whether with hypoxia or hypercapnia Plan: -Continue respiratory therapy -T-tube supplementation --Pulmonology following (Dr. Rizo), recommended bronchoscopy procedure, daughter refused -Aerosol nebs -Supplement O2 -TF -Pseudomonas (mcdonald-resistant) on sputum culture 08/25 Impression: No respiratory symptoms or leukocytosis to suggest pneumonia at this time -ID suggest likely colonization at this time, will hold off on cultures unless symptomatic or acute changes present. No antibiotics at this time. -Chest x-ray with no significant change Impression/History: At this point, respiratory failure is chronic on T-tube Hospital Acquired PNA on 07/21 CXR 08/01 demonstrating bilateral airspace disease and effusions, R>L US chest wall 08/02- moderate right pleural effusion. - Consulted IR for US guided thoracentesis, performed on 08/05 removing 1450 cc of clear yellow fluid - Pleural fluid culture from 08/05 with no growth after 72 hours Legionella and S pneumonia urine antigen negative Infection History Pseudomonas hospital-acquired pneumonia - resolved MSSA bacteremia - resolved Serratia/staph aureus pneumonia - resolved C glabrata UTI - resolved Citrobacter UTI - resolved Serratia/MSSA sputum VAP - resolved Antibiotic History Cefazolin: 04/21-04/22, 05/15-05/16 Cefepime: 04/30-05/04, 05/27-06/03 Ceftrioxone 05/26-05/27 Erythromycin 06/16-06/18, 06/19 Gentamicin 04/21 vancomycin 04/30-05/04, 06/21-06/23 Zosyn 07/21 - 07/25 Azithromycin 07/21 - 07/25 Fluconazole 04/29 - ; 07/26 ceftolozane/ tazobactam 07/25 - 08/06 Colistin nebs q8h 08/06 - 08/11 (2) Pleural effusion ICD Codes: J90 - Pleural effusion, not elsewhere classified Status: Acute Plan: US chest 08/01 demonstrating moderate right pleural effusion Consulted IR for US guided thoracentesis, performed on 08/05 removing 1450 cc of clear yellow fluid - Pleural fluid culture from 08/05 with no growth after 72 hours Further plan as above -Repeat CXR 08/27 with no significant change (3) Acute CVA (cerebrovascular accident) ICD Codes: I63.9 - Cerebral infarction, unspecified Status: Chronic Plan: Neurologically stable, no improvement. Overall prognosis is poor. Persistent oxygen requirement See above note about meeting with Daughter on 07/23 and 07/26. Daughter still desires full code and aggressive care -Titrate oxygen via trach to maintain O2 saturation above 92% -Continue tube fees at 45ml/hr 24 hours per day thru peg Tube -Neurosurgery, neurology and palliative care have all been consulted in the past and agree with very poor prognosis with no meaningful neurologic recovery. History and imaging: Patient found minimally responsive with neurological deficits around 0820 04/24. Stat CT of head was ordered, which showed large left MCA infarct. Diffuse edema throughout the left MCA distribution, suggested completed infarct. This was discussed and was not a candidate for intracranial intervention. CT (04/30): Reduction in midline shift to 11mm. Unchanged large left MCA infarction. CT head (05/06) shows: Evolving large left-sided MCA territory infarct with minimally improved jeji-dh-brnfw subfalcine shift. No intercurrent hemorrhage or other acute abnormality. Echocardiogram- The left ventricular systolic function is low normal with an estimated ejection fraction in the range of 50-55%. Mild concentric left ventricular hypertrophy. Normal left ventricular size. [id number] mitral valve regurgitation. Carotid Artery US- No hemodynamically significant carotid stenosis (4) UTI (urinary tract infection) ICD Codes: N39.0 - Urinary tract infection, site not specified Status: Resolved Plan: UCx on 07/15 positive for E coli Repeat UCx on 07/20 positive for C. Freundii UCx 07/24 grew only yeast; no bacteria - See above for antibiotic history and coverage (5) Sacral decubitus ulcer ICD Codes: L89.159 - Pressure ulcer of sacral region, unspecified stage Status: Chronic Plan: Patient with Stage II pressure injury over the coccyx -Wound care consult appreciated: 1. Please cleanse coccyx wound every 3 days and PRN for soiling. 2. Apply Calcium Alginate to open wound bed. 3. Secure with bordered gauze every 3 days and PRN for soiling. 4. Continue to turn patient every 2 hours or PRN for comfort. 5. Use one ultrasorb for moisture. Please use flat sheet for repositioning. Review of patient's ulcer today. Continue wound care recommendations. We'll need to further discuss with nursing staff about continued appropriate management of the ulcer. (6) Anemia ICD Codes: D64.9 - Anemia, unspecified Status: Chronic Plan: s/p 1u of PRBC on 05/28/17. Hgb stable Hemoccult negative on 05/29 - monitor H&H periodically (7) Urinary retention ICD Codes: R33.9 - Retention of urine, unspecified Status: Chronic Plan: - Cath last changed 07/15, pt afebrile - Urine output WNL (8) Type 2 diabetes mellitus ICD Codes: E11.9 - Type 2 diabetes mellitus without complications Status: Chronic Plan: -continue to monitor BSG -Continue Levemir 7 units q 12 hrs -Will continue to monitor -Glucerna for PEG tube feedings @ 45 ml/hr -Glucagon 1 mg per PRN protocol for hypoglycemia BS <70mg/dL History Admitted for DKA which has now resolved. Hemoglobin A1C 12.9 04/2017 (9) Hip fracture ICD Codes: S72.009A - Fracture of unspecified part of neck of unspecified femur , initial encounter for closed fracture Status: Resolved Plan: S/P left hip reduction and intramedullary nail fixation on 04-21-17 -c/w Calcium/Vitamin D (10) Hypertension ICD Codes: I10 - Essential (primary) hypertension Status: Chronic Plan: -Antihypertensives to keep SBP<160 -c/w clonidine 0.1mg Q6h PRN SBP >160 -c/w lisinopril 40mg Q12h po Echocardiogram 04/24 - EF 50 to 55%. Mild concentric LVH. (11) Fluids, Electrolytes, and Nutrition Status: Acute Plan: Fluids: through PEG tube Electrolyte: Continue to monitor periodically, replete as needed Nutrition: continuous Glucerna tube feeds and free water, pump at 45mls/hr, tolerating feeds well, no residual. Protein 1 pack TID. Supplements: calcium TID and vit D3 QD DVT ppx: SCDs/heparin CVA ppx: aspirin 325 mg QD GI ppx: Lansoprazole 30mg qd via NG See the residents documentation for details. I saw and evaluated the patient regarding the nelson portions of this evaluation and agree with the residents findings and plans as written. (Ankit Guzman MD) Problem Qualifiers (1) Chronic respiratory failure: Qualified Codes: J96.11 - Chronic respiratory failure with hypoxia (2) UTI (urinary tract infection): Qualified Codes: N39.0 - Urinary tract infection, site not specified (3) Sacral decubitus ulcer: Qualified Codes: L89.152 - Pressure ulcer of sacral region, stage 2 (4) Type 2 diabetes mellitus: Qualified Codes: E11.9 - Type 2 diabetes mellitus without complications (5) Hip fracture: (6) Hypertension: Qualified Codes: I10 - Essential (primary) hypertension Jose R Soriano MD R1 Aug 30, 2017 10:45 Ankit Guzman MD Aug 30, 2017 11:14
--- NOTE | 2017-08-30 14:35 | HHI.PR ---
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 opens eyes, No new complaint no fever no trach secretions Objective Vital Signs Vital Signs Date Time Temp Pulse Resp B/P (MAP) Pulse Ox O2 Delivery O2 Flow Rate FiO2 08/30/17 12:00 95.6 74 17 142/69 (93) 96 08/30/17 09:52 Trach Collar 6.00 08/30/17 08:00 97.6 74 17 162/83 (109) 98 08/30/17 04:29 100 T-piece 5.00 28 08/30/17 00:00 95.7 87 17 145/87 (106) 95 08/29/17 20:00 95.7 87 17 149/81 (103) 95 08/29/17 20:00 Trach Collar 6.00 28 08/29/17 17:27 100 T-piece 6.00 28 08/29/17 16:00 95.4 70 18 149/65 (93) 100 I/O 08/29/17 08/29/17 08/29/17 08/30/17 08/30/17 08/30/17 07:00 15:00 23:00 07:00 15:00 23:00 Intake Total 0 ml 0 ml Output Total 300 ml 600 ml 650 ml Balance -300 ml -600 ml -650 ml Intake Oral 0 ml 0 ml Output Urine Total 300 ml 600 ml 650 ml # Bowel Movements 2 2 Result Diagram: 08/28/17 0910 08/28/17 0910 Objective Remarks GENERAL: Elderly female,NAD SKIN: Warm and dry. HEAD: Normocephalic. EYES: No scleral icterus. No injection or drainage. NECK: Supple, trachea midline. No JVD or lymphadenopathy. CARDIOVASCULAR: Regular rate and rhythm without murmurs, gallops, or rubs. RESPIRATORY: Breath sounds equal bilaterally. No accessory muscle use. GASTROINTESTINAL: Abdomen soft, non-tender, nondistended. MUSCULOSKELETAL: No cyanosis, or edema. BACK: Nontender without obvious deformity. No CVA tenderness. A/P Assessment and Plan RF,S/P Trach CVA Pneumonia Pleural effusion Pseudomonas Tracheobronchitis, ? colonisation PLAN: Cont trach collar Aerosol nebs Supplement 02 Trach care TF ID Following, no Abx at this time Chris Rizo MD Aug 30, 2017 14:35
[2017-08-31 00:11] VITALS: BP 159/80; PULSE 89; RESP 18; TEMP 96.2; O2SAT 98
[2017-08-31] MEDS: INSULIN ASPART SUPPLEMENTAL SCALE SQ SCH ×4 (00:28→18:01)
[2017-08-31] MEDS: HEPARIN SODIUM - SQ 10,000 UNITS/ML VIAL SQ SCH ×3 (06:25→21:30)
[2017-08-31] MEDS: ARTIFICIAL TEARS OPTH SOLN 15 ML BTL EACH EYE SCH ×3 (06:25→21:30)
[2017-08-31 08:00] VITALS: BP 169/64; PULSE 80; RESP 20; TEMP 97.1; O2SAT 100
[2017-08-31] MEDS: POLYETHYLENE GLYCOL 17 GM PKG PEG SCH (09:00)
[2017-08-31] MEDS: LANSOPRAZOLE SOLUTAB 30 MG TAB NG SCH (11:47)
[2017-08-31] MEDS: CHOLECALCIFEROL (VIT D3) 5000 UNIT CAP PO SCH (11:47)
[2017-08-31] MEDS: ASPIRIN 325 MG TAB DOBHOFF SCH (11:47)
[2017-08-31] MEDS: LISINOPRIL 20 MG TAB PO SCH ×2 (11:47→21:35)
[2017-08-31] MEDS: amLODIPine BESYLATE 5 MG TAB PO SCH (11:47)
[2017-08-31] MEDS: CALCIUM/VITAMIN D 250 MG/125 U TAB PO SCH ×3 (11:47→18:01)
[2017-08-31] MEDS: INSULIN DETEMIR 100 UNITS/ML VIAL SQ SCH ×2 (11:48→21:35)
[2017-08-31] MEDS: SODIUM CHLORIDE 0.9% FLUSH 5 ML FLUSH IV FLUSH SCH ×2 (11:49→21:00)
[2017-08-31] MEDS: BENEPROTEIN POWDER 1 PACK G-TUBE SCH ×3 (11:51→18:02)
[2017-08-31 12:00] VITALS: BP 161/72; PULSE 83; RESP 18; TEMP 97.5; O2SAT 100
--- NOTE | 2017-08-31 13:29 | HHI.FPPN ---
Subjective Remarks Patient seen and examined this morning. No acute events overnight. Unresponsive to verbal stimuli. Poorly responsive to painful stimuli. Does not respond verbally. Afebrile overnight. (Jose R Soriano MD R1) Objective Vitals Vital Signs Date Time Temp Pulse Resp B/P (MAP) Pulse Ox O2 Delivery O2 Flow Rate FiO2 08/31/17 00:11 96.2 89 18 159/80 (106) 98 08/30/17 22:54 93 T-piece 6.00 28 08/30/17 21:30 T-Piece 6.00 28 08/30/17 20:24 95.6 88 17 168/80 (109) 99 08/30/17 16:00 96.9 86 17 162/81 (108) 94 I/O 08/30/17 08/30/17 08/30/17 08/31/17 08/31/17 08/31/17 06:59 14:59 22:59 06:59 14:59 22:59 Intake Total 904 ml Output Total 650 ml 425 ml 600 ml Balance -650 ml 479 ml -600 ml Intake Oral 0 ml Tube Feeding 904 ml Output Urine Total 650 ml 425 ml 600 ml # Bowel Movements 2 1 3 (Jose R Soriano MD R1) Result Diagram: 08/28/17 0910 08/28/17 0910 Objective Remarks GEN: Appears comfortable. NAD. Trach and PEG. Lists to the left. HEAD: Right side facial droop. LUNGS: Decreased sounds in b/l bases, breathing spontaneously via T-piece (6L; FiO2 35%). CARDIOVASCULAR: NRRR, normal S1/S2, no murmur. Grossly normal peripheral perfusion GI/ABD: Soft, non-distended. NEURO: Did not open eyes to sternal rubbing. Flaccid paralysis on the right side. MUSC: No calf asymmetry appreciated SKIN: Sacrum inspected 08/30; previously sacral pressure ulcer extended from anus to coccyx; stage II, unchanged EXTREMITIES: Trace edema bilaterally Other: urinary catheter in place. Procedures ORIF 04/21/17 Intubation 04/30/17 Chest tube placement 05/07/17, removed 05/12/17 Trach placement 05/15/17 PEG tube placement 05/16/17 (Jose R Soriano MD R1) A/P Assessment and Plan 76 y/o female with HTN, DM admitted for DKA and hip fracture s/p large CVA after ORIF she is currently stable with her current treatment but has had no meaningful functional recovery and do not anticipate any further neurologic recovery from here on. Dr. Harper, Dr. Tran and case management had a long discussion with the daughter on 07/23 and the patient's daughter is still hopeful for full recovery for her mom in spite of her mom's state of health since her CVA. DW the daughter that it is our belief based on her clinical picture that she will not make any sort of meaningful recovery and will remain on the trach and PEG for the rest of her life. DW the daughter due to her status that the patient will likely continue to decline and continue to acquire infections associated with this type of clinical picture including UTI, PNA, and sepsis. DW the daughter to consider the QOL that her mother would have wanted. We recommend that this patient receive Hospice services as we would not anticipate her living longer than 6 months. The daughter does not want to consider this at this time and she is the sole decision maker for this patient. In that case, we will continue to treat the patient aggressively as issues arise and honor the families wishes. A one-hour long family meeting was held (07/26) with patient's daughter Trice, Dr. Harper, Dr. Watts and patient's nurse to discuss patient's poor prognosis. We felt it was important to listen to daughter's perspective and address any questions or concerns she has about her mother's care. Patient goals of care were also discussed. Daughter still wants aggressive treatment. Daughter was informed that from our medical standpoint we do not anticipated any meaningful recovery from her mother's current baseline. Neither do we anticipate for mother to be able to get off PEG tube feeds and trach. However, we will continue to honor daughter's wishes and provide aggressive medical care. ID and pulmonology are actively following. Patient is currently being treated for MDR pseudomonas pna and pulmonology recommended bronchoscopy. Risk and benefits of the procedure were explained and discussed with daughter. The option for her mother not to have the bronchoscopy and to instead continue treatment with antibiotics was also discussed. She is currently unsure about the procedure. She was advised to take time to think about her decision keeping in mind what her mother's wishes would be. 08/02- Daughter at bedside. I had a long discussion with the daughter. Discussed with her about patient's unchanged status. She agreed to thoracentesis done on 08/05. She still wants aggressive care for her mother. Discharge Planning Pending placement, case therapistquality system manager Ramses mendoza [phone] (Jose R Soriano MD R1) Problem List: (1) Chronic respiratory failure ICD Codes: J96.10 - Chronic respiratory failure, unspecified whether with hypoxia or hypercapnia Plan: -Continue respiratory therapy -T-tube supplementation --Pulmonology following (Dr. Rizo), recommended bronchoscopy procedure, daughter refused -Aerosol nebs -Supplement O2 -TF -Pseudomonas (mcdonald-resistant) on sputum culture 08/25 Impression: No respiratory symptoms or leukocytosis to suggest pneumonia at this time -ID suggest likely colonization at this time, will hold off on cultures unless symptomatic or acute changes present. No antibiotics at this time. -Chest x-ray with no significant change Impression/History: At this point, respiratory failure is chronic on T-tube Hospital Acquired PNA on 07/21 CXR 08/01 demonstrating bilateral airspace disease and effusions, R>L US chest wall 08/02- moderate right pleural effusion. - Consulted IR for US guided thoracentesis, performed on 08/05 removing 1450 cc of clear yellow fluid - Pleural fluid culture from 08/05 with no growth after 72 hours Legionella and S pneumonia urine antigen negative Infection History Pseudomonas hospital-acquired pneumonia - resolved MSSA bacteremia - resolved Serratia/staph aureus pneumonia - resolved C glabrata UTI - resolved Citrobacter UTI - resolved Serratia/MSSA sputum VAP - resolved Antibiotic History Cefazolin: 04/21-04/22, 05/15-05/16 Cefepime: 04/30-05/04, 05/27-06/03 Ceftrioxone 05/26-05/27 Erythromycin 06/16-06/18, 06/19 Gentamicin 04/21 vancomycin 04/30-05/04, 06/21-06/23 Zosyn 07/21 - 07/25 Azithromycin 07/21 - 07/25 Fluconazole 04/29 - ; 07/26 ceftolozane/ tazobactam 07/25 - 08/06 Colistin nebs q8h 08/06 - 08/11 (2) Pleural effusion ICD Codes: J90 - Pleural effusion, not elsewhere classified Status: Acute Plan: US chest 08/01 demonstrating moderate right pleural effusion Consulted IR for US guided thoracentesis, performed on 08/05 removing 1450 cc of clear yellow fluid - Pleural fluid culture from 08/05 with no growth after 72 hours Further plan as above -Repeat CXR 08/27 with no significant change (3) Acute CVA (cerebrovascular accident) ICD Codes: I63.9 - Cerebral infarction, unspecified Status: Chronic Plan: Neurologically stable, no improvement. Overall prognosis is poor. Persistent oxygen requirement See above note about meeting with Daughter on 07/23 and 07/26. Daughter still desires full code and aggressive care -Titrate oxygen via trach to maintain O2 saturation above 92% -Continue tube fees at 45ml/hr 24 hours per day thru peg Tube -Neurosurgery, neurology and palliative care have all been consulted in the past and agree with very poor prognosis with no meaningful neurologic recovery. History and imaging: Patient found minimally responsive with neurological deficits around 0820 04/24. Stat CT of head was ordered, which showed large left MCA infarct. Diffuse edema throughout the left MCA distribution, suggested completed infarct. This was discussed and was not a candidate for intracranial intervention. CT (04/30): Reduction in midline shift to 11mm. Unchanged large left MCA infarction. CT head (05/06) shows: Evolving large left-sided MCA territory infarct with minimally improved [id number] subfalcine shift. No intercurrent hemorrhage or other acute abnormality. Echocardiogram- The left ventricular systolic function is low normal with an estimated ejection fraction in the range of 50-55%. Mild concentric left ventricular hypertrophy. Normal left ventricular size. [id number] mitral valve regurgitation. Carotid Artery US- No hemodynamically significant carotid stenosis (4) UTI (urinary tract infection) ICD Codes: N39.0 - Urinary tract infection, site not specified Status: Resolved Plan: UCx on 07/15 positive for E coli Repeat UCx on 07/20 positive for C. Freundii UCx 07/24 grew only yeast; no bacteria - See above for antibiotic history and coverage (5) Sacral decubitus ulcer ICD Codes: L89.159 - Pressure ulcer of sacral region, unspecified stage Status: Chronic Plan: Patient with Stage II pressure injury over the coccyx -Wound care consult appreciated: 1. Please cleanse coccyx wound every 3 days and PRN for soiling. 2. Apply Calcium Alginate to open wound bed. 3. Secure with bordered gauze every 3 days and PRN for soiling. 4. Continue to turn patient every 2 hours or PRN for comfort. 5. Use one ultrasorb for moisture. Please use flat sheet for repositioning. Review of patient's ulcer today. Continue wound care recommendations. We'll need to further discuss with nursing staff about continued appropriate management of the ulcer. (6) Anemia ICD Codes: D64.9 - Anemia, unspecified Status: Chronic Plan: s/p 1u of PRBC on 05/28/17. Hgb stable Hemoccult negative on 05/29 - monitor H&H periodically (7) Urinary retention ICD Codes: R33.9 - Retention of urine, unspecified Status: Chronic Plan: - Cath last changed 07/15, pt afebrile - Urine output WNL (8) Type 2 diabetes mellitus ICD Codes: E11.9 - Type 2 diabetes mellitus without complications Status: Chronic Plan: -continue to monitor BSG -Continue Levemir 7 units q 12 hrs -Will continue to monitor -Glucerna for PEG tube feedings @ 45 ml/hr -Glucagon 1 mg per PRN protocol for hypoglycemia BS <70mg/dL History Admitted for DKA which has now resolved. Hemoglobin A1C 12.9 04/2017 (9) Hip fracture ICD Codes: S72.009A - Fracture of unspecified part of neck of unspecified femur , initial encounter for closed fracture Status: Resolved Plan: S/P left hip reduction and intramedullary nail fixation on 04-21-17 -c/w Calcium/Vitamin D (10) Hypertension ICD Codes: I10 - Essential (primary) hypertension Status: Chronic Plan: -Antihypertensives to keep SBP<160 -c/w clonidine 0.1mg Q6h PRN SBP >160 -c/w lisinopril 40mg Q12h po Echocardiogram 04/24 - EF 50 to 55%. Mild concentric LVH. (11) Fluids, Electrolytes, and Nutrition Status: Acute Plan: Fluids: through PEG tube Electrolyte: Continue to monitor periodically, replete as needed Nutrition: continuous Glucerna tube feeds and free water, pump at 45mls/hr, tolerating feeds well, no residual. Protein 1 pack TID. Supplements: calcium TID and vit D3 QD DVT ppx: SCDs/heparin CVA ppx: aspirin 325 mg QD GI ppx: Lansoprazole 30mg qd via NG See the residents documentation for details. I saw and evaluated the patient regarding the nelson portions of this evaluation and agree with the residents findings and plans as written. (Jose R Soriano MD R1) Problem List: (1) Chronic respiratory failure ICD Codes: J96.10 - Chronic respiratory failure, unspecified whether with hypoxia or hypercapnia Plan: -Continue respiratory therapy -T-tube supplementation --Pulmonology following (Dr. Rizo), recommended bronchoscopy procedure, daughter refused -Aerosol nebs -Supplement O2 -TF -Pseudomonas (mcdonald-resistant) on sputum culture 08/25 Impression: No respiratory symptoms or leukocytosis to suggest pneumonia at this time -ID suggest likely colonization at this time, will hold off on cultures unless symptomatic or acute changes present. No antibiotics at this time. -Chest x-ray with no significant change Impression/History: At this point, respiratory failure is chronic on T-tube Hospital Acquired PNA on 07/21 CXR 08/01 demonstrating bilateral airspace disease and effusions, R>L US chest wall 08/02- moderate right pleural effusion. - Consulted IR for US guided thoracentesis, performed on 08/05 removing 1450 cc of clear yellow fluid - Pleural fluid culture from 08/05 with no growth after 72 hours Legionella and S pneumonia urine antigen negative Infection History Pseudomonas hospital-acquired pneumonia - resolved MSSA bacteremia - resolved Serratia/staph aureus pneumonia - resolved C glabrata UTI - resolved Citrobacter UTI - resolved Serratia/MSSA sputum VAP - resolved Antibiotic History Cefazolin: 04/21-04/22, 05/15-05/16 Cefepime: 04/30-05/04, 05/27-06/03 Ceftrioxone 05/26-05/27 Erythromycin 06/16-06/18, 06/19 Gentamicin 04/21 vancomycin 04/30-05/04, 06/21-06/23 Zosyn 07/21 - 07/25 Azithromycin 07/21 - 07/25 Fluconazole 04/29 - ; 07/26 ceftolozane/ tazobactam 07/25 - 08/06 Colistin nebs q8h 08/06 - 08/11 (2) Pleural effusion ICD Codes: J90 - Pleural effusion, not elsewhere classified Status: Acute Plan: US chest 08/01 demonstrating moderate right pleural effusion Consulted IR for US guided thoracentesis, performed on 08/05 removing 1450 cc of clear yellow fluid - Pleural fluid culture from 08/05 with no growth after 72 hours Further plan as above -Repeat CXR 08/27 with no significant change (3) Acute CVA (cerebrovascular accident) ICD Codes: I63.9 - Cerebral infarction, unspecified Status: Chronic Plan: Neurologically stable, no improvement. Overall prognosis is poor. Persistent oxygen requirement See above note about meeting with Daughter on 07/23 and 07/26. Daughter still desires full code and aggressive care -Titrate oxygen via trach to maintain O2 saturation above 92% -Continue tube fees at 45ml/hr 24 hours per day thru peg Tube -Neurosurgery, neurology and palliative care have all been consulted in the past and agree with very poor prognosis with no meaningful neurologic recovery. History and imaging: Patient found minimally responsive with neurological deficits around 0820 04/24. Stat CT of head was ordered, which showed large left MCA infarct. Diffuse edema throughout the left MCA distribution, suggested completed infarct. This was discussed and was not a candidate for intracranial intervention. CT (04/30): Reduction in midline shift to 11mm. Unchanged large left MCA infarction. CT head (05/06) shows: Evolving large left-sided MCA territory infarct with minimally improved [id number] subfalcine shift. No intercurrent hemorrhage or other acute abnormality. Echocardiogram- The left ventricular systolic function is low normal with an estimated ejection fraction in the range of 50-55%. Mild concentric left ventricular hypertrophy. Normal left ventricular size. Lreoa-wx-[id number] mitral valve regurgitation. Carotid Artery US- No hemodynamically significant carotid stenosis (4) UTI (urinary tract infection) ICD Codes: N39.0 - Urinary tract infection, site not specified Status: Resolved Plan: UCx on 07/15 positive for E coli Repeat UCx on 07/20 positive for C. Freundii UCx 07/24 grew only yeast; no bacteria - See above for antibiotic history and coverage (5) Sacral decubitus ulcer ICD Codes: L89.159 - Pressure ulcer of sacral region, unspecified stage Status: Chronic Plan: Patient with Stage II pressure injury over the coccyx -Wound care consult appreciated: 1. Please cleanse coccyx wound every 3 days and PRN for soiling. 2. Apply Calcium Alginate to open wound bed. 3. Secure with bordered gauze every 3 days and PRN for soiling. 4. Continue to turn patient every 2 hours or PRN for comfort. 5. Use one ultrasorb for moisture. Please use flat sheet for repositioning. Review of patient's ulcer today. Continue wound care recommendations. We'll need to further discuss with nursing staff about continued appropriate management of the ulcer. (6) Anemia ICD Codes: D64.9 - Anemia, unspecified Status: Chronic Plan: s/p 1u of PRBC on 05/28/17. Hgb stable Hemoccult negative on 05/29 - monitor H&H periodically (7) Urinary retention ICD Codes: R33.9 - Retention of urine, unspecified Status: Chronic Plan: - Cath last changed 07/15, pt afebrile - Urine output WNL (8) Type 2 diabetes mellitus ICD Codes: E11.9 - Type 2 diabetes mellitus without complications Status: Chronic Plan: -continue to monitor BSG -Continue Levemir 7 units q 12 hrs -Will continue to monitor -Glucerna for PEG tube feedings @ 45 ml/hr -Glucagon 1 mg per PRN protocol for hypoglycemia BS <70mg/dL History Admitted for DKA which has now resolved. Hemoglobin A1C 12.9 04/2017 (9) Hip fracture ICD Codes: S72.009A - Fracture of unspecified part of neck of unspecified femur , initial encounter for closed fracture Status: Resolved Plan: S/P left hip reduction and intramedullary nail fixation on 04-21-17 -c/w Calcium/Vitamin D (10) Hypertension ICD Codes: I10 - Essential (primary) hypertension Status: Chronic Plan: -Antihypertensives to keep SBP<160 -c/w clonidine 0.1mg Q6h PRN SBP >160 -c/w lisinopril 40mg Q12h po Echocardiogram 04/24 - EF 50 to 55%. Mild concentric LVH. (11) Fluids, Electrolytes, and Nutrition Status: Acute Plan: Fluids: through PEG tube Electrolyte: Continue to monitor periodically, replete as needed Nutrition: continuous Glucerna tube feeds and free water, pump at 45mls/hr, tolerating feeds well, no residual. Protein 1 pack TID. Supplements: calcium TID and vit D3 QD DVT ppx: SCDs/heparin CVA ppx: aspirin 325 mg QD GI ppx: Lansoprazole 30mg qd via NG See the residents documentation for details. I saw and evaluated the patient regarding the nelson portions of this evaluation and agree with the residents findings and plans as written. (Ankit Guzman MD) Problem Qualifiers (1) Chronic respiratory failure: Qualified Codes: J96.11 - Chronic respiratory failure with hypoxia (2) UTI (urinary tract infection): Qualified Codes: N39.0 - Urinary tract infection, site not specified (3) Sacral decubitus ulcer: Qualified Codes: L89.152 - Pressure ulcer of sacral region, stage 2 (4) Type 2 diabetes mellitus: Qualified Codes: E11.9 - Type 2 diabetes mellitus without complications (5) Hip fracture: (6) Hypertension: Qualified Codes: I10 - Essential (primary) hypertension Jose R Soriano MD R1 Aug 31, 2017 13:29 Ankit Guzman MD Sep 02, 2017 12:54
--- NOTE | 2017-08-31 15:27 | HHI.PR ---
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 opens eyes, No new complaint no fever Objective Vital Signs Vital Signs Date Time Temp Pulse Resp B/P (MAP) Pulse Ox O2 Delivery O2 Flow Rate FiO2 08/31/17 12:00 100 T-piece 6.00 28 08/31/17 12:00 97.5 83 18 161/72 (101) 100 08/31/17 09:30 T-Piece 9.00 28 08/31/17 08:00 97.1 80 20 169/64 (99) 100 08/31/17 00:11 96.2 89 18 159/80 (106) 98 08/30/17 22:54 93 T-piece 6.00 28 08/30/17 21:30 T-Piece 6.00 28 08/30/17 20:24 95.6 88 17 168/80 (109) 99 08/30/17 16:00 96.9 86 17 162/81 (108) 94 I/O 08/30/17 08/30/17 08/30/17 08/31/17 08/31/17 08/31/17 07:00 15:00 23:00 07:00 15:00 23:00 Intake Total 904 ml Output Total 650 ml 425 ml 600 ml Balance -650 ml 479 ml -600 ml Intake Oral 0 ml Tube Feeding 904 ml Output Urine Total 650 ml 425 ml 600 ml # Bowel Movements 2 1 3 Result Diagram: 08/28/17 0910 08/28/17 0910 Objective Remarks GENERAL: Elderly female,NAD SKIN: Warm and dry. HEAD: Normocephalic. EYES: No scleral icterus. No injection or drainage. NECK: Supple, trachea midline. No JVD or lymphadenopathy. CARDIOVASCULAR: Regular rate and rhythm without murmurs, gallops, or rubs. RESPIRATORY: Breath sounds equal bilaterally. No accessory muscle use. GASTROINTESTINAL: Abdomen soft, non-tender, nondistended. MUSCULOSKELETAL: No cyanosis, or edema. BACK: Nontender without obvious deformity. No CVA tenderness. A/P Assessment and Plan RF,S/P Trach CVA Pneumonia Pleural effusion Pseudomonas Tracheobronchitis, ? colonisation PLAN: Cont trach collar Aerosol nebs Supplement 02 Trach care TF Chris Rizo MD Aug 31, 2017 15:27
[2017-08-31 16:00] VITALS: BP 99/50; PULSE 61; RESP 20; TEMP 98.1; O2SAT 97
[2017-08-31 17:44] VITALS: O2SAT 100
[2017-08-31 20:35] VITALS: BP 146/69; PULSE 74; RESP 18; TEMP 95.6; O2SAT 99
[2017-09-01] VITALS (8 sets, daily range): BP systolic 139–161; BP diastolic 65–83; PULSE 80–82; RESP 16–18; TEMP 95.7–97.9; O2SAT 91–99
[2017-09-01] MEDS: INSULIN ASPART SUPPLEMENTAL SCALE SQ SCH ×4 (00:40→17:50)
[2017-09-01] MEDS: ARTIFICIAL TEARS OPTH SOLN 15 ML BTL EACH EYE SCH ×3 (06:21→20:56)
[2017-09-01] MEDS: HEPARIN SODIUM - SQ 10,000 UNITS/ML VIAL SQ SCH ×3 (06:21→20:57)
[2017-09-01] MEDS: POLYETHYLENE GLYCOL 17 GM PKG PEG SCH (09:00)
[2017-09-01] MEDS: LISINOPRIL 20 MG TAB PO SCH ×2 (09:22→20:56)
[2017-09-01] MEDS: LANSOPRAZOLE SOLUTAB 30 MG TAB NG SCH (09:22)
[2017-09-01] MEDS: CHOLECALCIFEROL (VIT D3) 5000 UNIT CAP PO SCH (09:23)
[2017-09-01] MEDS: ASPIRIN 325 MG TAB DOBHOFF SCH (09:23)
[2017-09-01] MEDS: BENEPROTEIN POWDER 1 PACK G-TUBE SCH ×3 (09:24→17:50)
[2017-09-01] MEDS: CALCIUM/VITAMIN D 250 MG/125 U TAB PO SCH ×3 (09:24→17:49)
[2017-09-01] MEDS: amLODIPine BESYLATE 5 MG TAB PO SCH (09:24)
[2017-09-01] MEDS: INSULIN DETEMIR 100 UNITS/ML VIAL SQ SCH ×2 (09:25→20:56)
[2017-09-01] MEDS: SODIUM CHLORIDE 0.9% FLUSH 5 ML FLUSH IV FLUSH SCH ×2 (09:25→20:57)
--- NOTE | 2017-09-01 11:02 | HHI.FPPN ---
Subjective Remarks Patient seen and examined this morning. No acute events overnight. Patient's spontaneously moves LUE. Stable neuro status. (Moisés Hanson MD, R2) Objective Vitals Vital Signs Date Time Temp Pulse Resp B/P (MAP) Pulse Ox O2 Delivery O2 Flow Rate FiO2 09/01/17 08:26 97 T-piece 28 09/01/17 08:26 97 T-piece 28 09/01/17 08:00 97.9 80 17 161/72 (101) 91 09/01/17 00:16 95.7 82 17 157/83 (107) 99 08/31/17 21:30 99 Trach Collar 6.00 28 08/31/17 20:35 95.6 74 18 146/69 (94) 99 08/31/17 17:44 100 T-piece 6.00 28 08/31/17 16:00 98.1 61 20 99/50 (66) 97 08/31/17 12:00 100 T-piece 6.00 28 08/31/17 12:00 97.5 83 18 161/72 (101) 100 I/O 08/31/17 08/31/17 08/31/17 09/01/17 09/01/17 09/01/17 06:59 14:59 22:59 06:59 14:59 22:59 Output Total 600 ml 550 ml 1350 ml Balance -600 ml -550 ml -1350 ml Output Urine Total 600 ml 550 ml 1350 ml # Bowel Movements 3 2 5 (Moisés Hanson MD, R2) Result Diagram: 08/28/17 0910 08/28/17 0910 Objective Remarks GEN: Appears comfortable. NAD. Trach and PEG. Lists to the left. HEAD: Right side facial droop. LUNGS: Decreased sounds in b/l bases, breathing spontaneously via T-piece (6L; FiO2 35%). CARDIOVASCULAR: NRRR, normal S1/S2, no murmur. Grossly normal peripheral perfusion GI/ABD: Soft, non-distended. NEURO: Did not open eyes to sternal rubbing. Flaccid paralysis on the right side. MUSC: No calf asymmetry appreciated SKIN: Sacrum inspected 08/30; previously sacral pressure ulcer extended from anus to coccyx; stage II, unchanged EXTREMITIES: Trace edema bilaterally Other: urinary catheter in place. Procedures ORIF 04/21/17 Intubation 04/30/17 Chest tube placement 05/07/17, removed 05/12/17 Trach placement 05/15/17 PEG tube placement 05/16/17 (Moisés Hanson MD, R2) A/P Assessment and Plan 76 y/o female with HTN, DM admitted for DKA and hip fracture s/p large CVA after ORIF she is currently stable with her current treatment but has had no meaningful functional recovery and do not anticipate any further neurologic recovery from here on. Dr. Harper, Dr. Tran and case management had a long discussion with the daughter on 07/23 and the patient's daughter is still hopeful for full recovery for her mom in spite of her mom's state of health since her CVA. DW the daughter that it is our belief based on her clinical picture that she will not make any sort of meaningful recovery and will remain on the trach and PEG for the rest of her life. DW the daughter due to her status that the patient will likely continue to decline and continue to acquire infections associated with this type of clinical picture including UTI, PNA, and sepsis. DW the daughter to consider the QOL that her mother would have wanted. We recommend that this patient receive Hospice services as we would not anticipate her living longer than 6 months. The daughter does not want to consider this at this time and she is the sole decision maker for this patient. In that case, we will continue to treat the patient aggressively as issues arise and honor the families wishes. A one-hour long family meeting was held (07/26) with patient's daughter Trice, Dr. Harper, Dr. Watts and patient's nurse to discuss patient's poor prognosis. We felt it was important to listen to daughter's perspective and address any questions or concerns she has about her mother's care. Patient goals of care were also discussed. Daughter still wants aggressive treatment. Daughter was informed that from our medical standpoint we do not anticipated any meaningful recovery from her mother's current baseline. Neither do we anticipate for mother to be able to get off PEG tube feeds and trach. However, we will continue to honor daughter's wishes and provide aggressive medical care. ID and pulmonology are actively following. Patient is currently being treated for MDR pseudomonas pna and pulmonology recommended bronchoscopy. Risk and benefits of the procedure were explained and discussed with daughter. The option for her mother not to have the bronchoscopy and to instead continue treatment with antibiotics was also discussed. She is currently unsure about the procedure. She was advised to take time to think about her decision keeping in mind what her mother's wishes would be. 08/02- Daughter at bedside. I had a long discussion with the daughter. Discussed with her about patient's unchanged status. She agreed to thoracentesis done on 08/05. She still wants aggressive care for her mother. 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 Rizo), recommended bronchoscopy procedure, daughter refused -Aerosol nebs -Supplement O2 -TF -Pseudomonas (mcdonald-resistant) on sputum culture 08/25 Impression: No respiratory symptoms or leukocytosis to suggest pneumonia at this time -ID suggest likely colonization at this time, will hold off on cultures unless symptomatic or acute changes present. No antibiotics at this time. -Chest x-ray with no significant change Impression/History: At this point, respiratory failure is chronic on T-tube Hospital Acquired PNA on 07/21 CXR 08/01 demonstrating bilateral airspace disease and effusions, R>L US chest wall 08/02- moderate right pleural effusion. - Consulted IR for US guided thoracentesis, performed on 08/05 removing 1450 cc of clear yellow fluid - Pleural fluid culture from 08/05 with no growth after 72 hours Legionella and S pneumonia urine antigen negative Infection History Pseudomonas hospital-acquired pneumonia - resolved MSSA bacteremia - resolved Serratia/staph aureus pneumonia - resolved C glabrata UTI - resolved Citrobacter UTI - resolved Serratia/MSSA sputum VAP - resolved Antibiotic History Cefazolin: 04/21-04/22, 05/15-05/16 Cefepime: 04/30-05/04, 05/27-06/03 Ceftrioxone 05/26-05/27 Erythromycin 06/16-06/18, 06/19 Gentamicin 04/21 vancomycin 04/30-05/04, 06/21-06/23 Zosyn 07/21 - 07/25 Azithromycin 07/21 - 07/25 Fluconazole 04/29 - ; 07/26 ceftolozane/ tazobactam 07/25 - 08/06 Colistin nebs q8h 08/06 - 08/11 (2) Pleural effusion ICD Codes: J90 - Pleural effusion, not elsewhere classified Status: Acute Plan: US chest 08/01 demonstrating moderate right pleural effusion Consulted IR for US guided thoracentesis, performed on 08/05 removing 1450 cc of clear yellow fluid - Pleural fluid culture from 08/05 with no growth after 72 hours Further plan as above -Repeat CXR 08/27 with no significant change (3) Acute CVA (cerebrovascular accident) ICD Codes: I63.9 - Cerebral infarction, unspecified Status: Chronic Plan: Neurologically stable, no improvement. Overall prognosis is poor. Persistent oxygen requirement See above note about meeting with Daughter on 07/23 and 07/26. Daughter still desires full code and aggressive care -Titrate oxygen via trach to maintain O2 saturation above 92% -Continue tube fees at 45ml/hr 24 hours per day thru peg Tube -Neurosurgery, neurology and palliative care have all been consulted in the past and agree with very poor prognosis with no meaningful neurologic recovery. History and imaging: Patient found minimally responsive with neurological deficits around 0820 04/24. Stat CT of head was ordered, which showed large left MCA infarct. Diffuse edema throughout the left MCA distribution, suggested completed infarct. This was discussed and was not a candidate for intracranial intervention. CT (04/30): Reduction in midline shift to 11mm. Unchanged large left MCA infarction. CT head (05/06) shows: Evolving large left-sided MCA territory infarct with minimally improved [id number] subfalcine shift. No intercurrent hemorrhage or other acute abnormality. Echocardiogram- The left ventricular systolic function is low normal with an estimated ejection fraction in the range of 50-55%. Mild concentric left ventricular hypertrophy. Normal left ventricular size. [id number] mitral valve regurgitation. Carotid Artery US- No hemodynamically significant carotid stenosis (4) UTI (urinary tract infection) ICD Codes: N39.0 - Urinary tract infection, site not specified Status: Resolved Plan: UCx on 07/15 positive for E coli Repeat UCx on 07/20 positive for C. Freundii UCx 07/24 grew only yeast; no bacteria - See above for antibiotic history and coverage (5) Sacral decubitus ulcer ICD Codes: L89.159 - Pressure ulcer of sacral region, unspecified stage Status: Chronic Plan: Patient with Stage II pressure injury over the coccyx -Wound care consult appreciated: 1. Please cleanse coccyx wound every 3 days and PRN for soiling. 2. Apply Calcium Alginate to open wound bed. 3. Secure with bordered gauze every 3 days and PRN for soiling. 4. Continue to turn patient every 2 hours or PRN for comfort. 5. Use one ultrasorb for moisture. Please use flat sheet for repositioning. Review of patient's ulcer today. Continue wound care recommendations. We'll need to further discuss with nursing staff about continued appropriate management of the ulcer. (6) Anemia ICD Codes: D64.9 - Anemia, unspecified Status: Chronic Plan: s/p 1u of PRBC on 05/28/17. Hgb stable Hemoccult negative on 05/29 - monitor H&H periodically (7) Urinary retention ICD Codes: R33.9 - Retention of urine, unspecified Status: Chronic Plan: - Cath last changed 07/15, pt afebrile - Urine output WNL (8) Type 2 diabetes mellitus ICD Codes: E11.9 - Type 2 diabetes mellitus without complications Status: Chronic Plan: -continue to monitor BSG -Continue Levemir 7 units q 12 hrs -Will continue to monitor -Glucerna for PEG tube feedings @ 45 ml/hr -Glucagon 1 mg per PRN protocol for hypoglycemia BS <70mg/dL History Admitted for DKA which has now resolved. Hemoglobin A1C 12.9 04/2017 (9) Hip fracture ICD Codes: S72.009A - Fracture of unspecified part of neck of unspecified femur , initial encounter for closed fracture Status: Resolved Plan: S/P left hip reduction and intramedullary nail fixation on 04-21-17 -c/w Calcium/Vitamin D (10) Hypertension ICD Codes: I10 - Essential (primary) hypertension Status: Chronic Plan: -Antihypertensives to keep SBP<160 -Amlodipine 5mg daily -c/w clonidine 0.1mg Q6h PRN SBP >160 -c/w lisinopril 40mg Q12h po Echocardiogram 04/24 - EF 50 to 55%. Mild concentric LVH. (11) Fluids, Electrolytes, and Nutrition Status: Acute Plan: Fluids: through PEG tube Electrolyte: Continue to monitor periodically, replete as needed Nutrition: continuous Glucerna tube feeds and free water, pump at 45mls/hr, tolerating feeds well, no residual. Protein 1 pack TID. Supplements: calcium TID and vit D3 QD DVT ppx: SCDs/heparin CVA ppx: aspirin 325 mg QD GI ppx: Lansoprazole 30mg qd via NG See the residents documentation for details. I saw and evaluated the patient regarding the nelson portions of this evaluation and agree with the residents findings and plans as written. (Moisés Hanson MD, R2) Problem List: (1) Chronic respiratory failure ICD Codes: J96.10 - Chronic respiratory failure, unspecified whether with hypoxia or hypercapnia Plan: -Continue respiratory therapy -T-tube supplementation --Pulmonology following (Dr. Rizo), recommended bronchoscopy procedure, daughter refused -Aerosol nebs -Supplement O2 -TF -Pseudomonas (mcdonald-resistant) on sputum culture 08/25 Impression: No respiratory symptoms or leukocytosis to suggest pneumonia at this time -ID suggest likely colonization at this time, will hold off on cultures unless symptomatic or acute changes present. No antibiotics at this time. -Chest x-ray with no significant change Impression/History: At this point, respiratory failure is chronic on T-tube Hospital Acquired PNA on 07/21 CXR 08/01 demonstrating bilateral airspace disease and effusions, R>L US chest wall 08/02- moderate right pleural effusion. - Consulted IR for US guided thoracentesis, performed on 08/05 removing 1450 cc of clear yellow fluid - Pleural fluid culture from 08/05 with no growth after 72 hours Legionella and S pneumonia urine antigen negative Infection History Pseudomonas hospital-acquired pneumonia - resolved MSSA bacteremia - resolved Serratia/staph aureus pneumonia - resolved C glabrata UTI - resolved Citrobacter UTI - resolved Serratia/MSSA sputum VAP - resolved Antibiotic History Cefazolin: 04/21-04/22, 05/15-05/16 Cefepime: 04/30-05/04, 05/27-06/03 Ceftrioxone 05/26-05/27 Erythromycin 06/16-06/18, 06/19 Gentamicin 04/21 vancomycin 04/30-05/04, 06/21-06/23 Zosyn 07/21 - 07/25 Azithromycin 07/21 - 07/25 Fluconazole 04/29 - ; 07/26 ceftolozane/ tazobactam 07/25 - 08/06 Colistin nebs q8h 08/06 - 08/11 (2) Pleural effusion ICD Codes: J90 - Pleural effusion, not elsewhere classified Status: Acute Plan: US chest 08/01 demonstrating moderate right pleural effusion Consulted IR for US guided thoracentesis, performed on 08/05 removing 1450 cc of clear yellow fluid - Pleural fluid culture from 08/05 with no growth after 72 hours Further plan as above -Repeat CXR 08/27 with no significant change (3) Acute CVA (cerebrovascular accident) ICD Codes: I63.9 - Cerebral infarction, unspecified Status: Chronic Plan: Neurologically stable, no improvement. Overall prognosis is poor. Persistent oxygen requirement See above note about meeting with Daughter on 07/23 and 07/26. Daughter still desires full code and aggressive care -Titrate oxygen via trach to maintain O2 saturation above 92% -Continue tube fees at 45ml/hr 24 hours per day thru peg Tube -Neurosurgery, neurology and palliative care have all been consulted in the past and agree with very poor prognosis with no meaningful neurologic recovery. History and imaging: Patient found minimally responsive with neurological deficits around 0820 04/24. Stat CT of head was ordered, which showed large left MCA infarct. Diffuse edema throughout the left MCA distribution, suggested completed infarct. This was discussed and was not a candidate for intracranial intervention. CT (04/30): Reduction in midline shift to 11mm. Unchanged large left MCA infarction. CT head (05/06) shows: Evolving large left-sided MCA territory infarct with minimally improved [id number] subfalcine shift. No intercurrent hemorrhage or other acute abnormality. Echocardiogram- The left ventricular systolic function is low normal with an estimated ejection fraction in the range of 50-55%. Mild concentric left ventricular hypertrophy. Normal left ventricular size. Xvhgu-[id number]-ewyd mitral valve regurgitation. Carotid Artery US- No hemodynamically significant carotid stenosis (4) UTI (urinary tract infection) ICD Codes: N39.0 - Urinary tract infection, site not specified Status: Resolved Plan: UCx on 07/15 positive for E coli Repeat UCx on 07/20 positive for C. Freundii UCx 07/24 grew only yeast; no bacteria - See above for antibiotic history and coverage (5) Sacral decubitus ulcer ICD Codes: L89.159 - Pressure ulcer of sacral region, unspecified stage Status: Chronic Plan: Patient with Stage II pressure injury over the coccyx -Wound care consult appreciated: 1. Please cleanse coccyx wound every 3 days and PRN for soiling. 2. Apply Calcium Alginate to open wound bed. 3. Secure with bordered gauze every 3 days and PRN for soiling. 4. Continue to turn patient every 2 hours or PRN for comfort. 5. Use one ultrasorb for moisture. Please use flat sheet for repositioning. Review of patient's ulcer today. Continue wound care recommendations. We'll need to further discuss with nursing staff about continued appropriate management of the ulcer. (6) Anemia ICD Codes: D64.9 - Anemia, unspecified Status: Chronic Plan: s/p 1u of PRBC on 05/28/17. Hgb stable Hemoccult negative on 05/29 - monitor H&H periodically (7) Urinary retention ICD Codes: R33.9 - Retention of urine, unspecified Status: Chronic Plan: - Cath last changed 07/15, pt afebrile - Urine output WNL (8) Type 2 diabetes mellitus ICD Codes: E11.9 - Type 2 diabetes mellitus without complications Status: Chronic Plan: -continue to monitor BSG -Continue Levemir 7 units q 12 hrs -Will continue to monitor -Glucerna for PEG tube feedings @ 45 ml/hr -Glucagon 1 mg per PRN protocol for hypoglycemia BS <70mg/dL History Admitted for DKA which has now resolved. Hemoglobin A1C 12.9 04/2017 (9) Hip fracture ICD Codes: S72.009A - Fracture of unspecified part of neck of unspecified femur , initial encounter for closed fracture Status: Resolved Plan: S/P left hip reduction and intramedullary nail fixation on 04-21-17 -c/w Calcium/Vitamin D (10) Hypertension ICD Codes: I10 - Essential (primary) hypertension Status: Chronic Plan: -Antihypertensives to keep SBP<160 -Amlodipine 5mg daily -c/w clonidine 0.1mg Q6h PRN SBP >160 -c/w lisinopril 40mg Q12h po Echocardiogram 04/24 - EF 50 to 55%. Mild concentric LVH. (11) Fluids, Electrolytes, and Nutrition Status: Acute Plan: Fluids: through PEG tube Electrolyte: Continue to monitor periodically, replete as needed Nutrition: continuous Glucerna tube feeds and free water, pump at 45mls/hr, tolerating feeds well, no residual. Protein 1 pack TID. Supplements: calcium TID and vit D3 QD DVT ppx: SCDs/heparin CVA ppx: aspirin 325 mg QD GI ppx: Lansoprazole 30mg qd via NG See the residents documentation for details. I saw and evaluated the patient regarding the nelson portions of this evaluation and agree with the residents findings and plans as written. (Ankit Guzman MD) Problem Qualifiers (1) Chronic respiratory failure: Qualified Codes: J96.11 - Chronic respiratory failure with hypoxia (2) UTI (urinary tract infection): Qualified Codes: N39.0 - Urinary tract infection, site not specified (3) Sacral decubitus ulcer: Qualified Codes: L89.152 - Pressure ulcer of sacral region, stage 2 (4) Type 2 diabetes mellitus: Qualified Codes: E11.9 - Type 2 diabetes mellitus without complications (5) Hip fracture: (6) Hypertension: Qualified Codes: I10 - Essential (primary) hypertension Moisés Hanson MD, R2 Sep 01, 2017 11:01 Ankit Guzman MD Sep 02, 2017 13:08
--- NOTE | 2017-09-01 14:34 | HHI.PR ---
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 opens eyes, No new complaint no fever Objective Vital Signs Vital Signs Date Time Temp Pulse Resp B/P (MAP) Pulse Ox O2 Delivery O2 Flow Rate FiO2 09/01/17 12:00 96.4 81 17 156/74 (101) 99 09/01/17 09:24 97 Trach Collar 6.00 28 09/01/17 08:26 97 T-piece 28 09/01/17 08:26 97 T-piece 28 09/01/17 08:00 97.9 80 17 161/72 (101) 91 09/01/17 00:16 95.7 82 17 157/83 (107) 99 08/31/17 21:30 99 Trach Collar 6.00 28 08/31/17 20:35 95.6 74 18 146/69 (94) 99 08/31/17 17:44 100 T-piece 6.00 28 08/31/17 16:00 98.1 61 20 99/50 (66) 97 I/O 08/31/17 08/31/17 08/31/17 09/01/17 09/01/17 09/01/17 07:00 15:00 23:00 07:00 15:00 23:00 Output Total 600 ml 550 ml 1350 ml Balance -600 ml -550 ml -1350 ml Output Urine Total 600 ml 550 ml 1350 ml # Bowel Movements 3 2 5 Result Diagram: 08/28/1710 08/28/17 0910 Objective Remarks GENERAL: Elderly female,NAD SKIN: Warm and dry. HEAD: Normocephalic. EYES: No scleral icterus. No injection or drainage. NECK: Supple, trachea midline. No JVD or lymphadenopathy. CARDIOVASCULAR: Regular rate and rhythm without murmurs, gallops, or rubs. RESPIRATORY: Breath sounds equal bilaterally. No accessory muscle use. GASTROINTESTINAL: Abdomen soft, non-tender, nondistended. MUSCULOSKELETAL: No cyanosis, or edema. BACK: Nontender without obvious deformity. No CVA tenderness. A/P Assessment and Plan RF,S/P Trach CVA Pneumonia Pleural effusion Pseudomonas Tracheobronchitis, ? colonisation PLAN: Cont trach collar Aerosol nebs Supplement 02 Trach care TF Off x Chris Rizo MD Sep 01, 2017 14:34
[2017-09-02] VITALS (7 sets, daily range): BP systolic 156–171; BP diastolic 72–79; PULSE 85–88; RESP 17–22; TEMP 96.3–97.4; O2SAT 94–98
[2017-09-02] MEDS: INSULIN ASPART SUPPLEMENTAL SCALE SQ SCH ×4 (00:16→18:30)
[2017-09-02] MEDS: HEPARIN SODIUM - SQ 10,000 UNITS/ML VIAL SQ SCH ×3 (05:34→21:01)
[2017-09-02] MEDS: ARTIFICIAL TEARS OPTH SOLN 15 ML BTL EACH EYE SCH ×3 (05:34→21:00)
[2017-09-02] MEDS: LISINOPRIL 20 MG TAB PO SCH ×2 (08:22→21:00)
[2017-09-02] MEDS: CALCIUM/VITAMIN D 250 MG/125 U TAB PO SCH ×3 (08:22→18:29)
[2017-09-02] MEDS: LANSOPRAZOLE SOLUTAB 30 MG TAB NG SCH (08:22)
[2017-09-02] MEDS: CHOLECALCIFEROL (VIT D3) 5000 UNIT CAP PO SCH (08:22)
[2017-09-02] MEDS: ASPIRIN 325 MG TAB DOBHOFF SCH (08:23)
[2017-09-02] MEDS: POLYETHYLENE GLYCOL 17 GM PKG PEG SCH (08:23)
[2017-09-02] MEDS: BENEPROTEIN POWDER 1 PACK G-TUBE SCH ×3 (08:23→18:30)
[2017-09-02] MEDS: INSULIN DETEMIR 100 UNITS/ML VIAL SQ SCH ×2 (08:24→21:11)
[2017-09-02] MEDS: SODIUM CHLORIDE 0.9% FLUSH 5 ML FLUSH IV FLUSH SCH ×2 (08:24→21:01)
--- NOTE | 2017-09-02 10:45 | HHI.FPPN ---
Subjective Remarks Patient seen and examined today. No acute events overnight. Eyes open, follows basic commands, grossly moves left arm or left leg. Afebrile overnight. Objective Vitals Vital Signs Date Time Temp Pulse Resp B/P (MAP) Pulse Ox O2 Delivery O2 Flow Rate FiO2 09/02/17 09:41 97 T-piece 6.00 28 09/02/17 09:41 97 T-piece 6.00 09/02/17 08:23 97 T-Piece 4.00 09/02/17 08:00 97.4 85 17 171/79 (109) 96 09/02/17 00:30 98 T-piece 09/02/17 00:30 98 T-piece 09/02/17 00:00 96.3 88 18 157/74 (101) 98 09/01/17 21:00 94 T-Piece 4.00 09/01/17 20:00 96.8 82 18 148/69 (95) 97 09/01/17 17:32 96 T-piece 6.00 09/01/17 17:31 96 T-piece 6.00 09/01/17 16:00 95.7 81 16 139/65 (89) 96 09/01/17 12:00 96.4 81 17 156/74 (101) 99 I/O 09/01/17 09/01/17 09/01/17 09/02/17 09/02/17 09/02/17 07:00 15:00 23:00 07:00 15:00 23:00 Intake Total 1508 ml Output Total 1350 ml 650 ml 890 ml Balance -1350 ml 858 ml -890 ml Intake Oral 0 ml Tube Feeding 1008 ml Other 500 ml Output Urine Total 1350 ml 650 ml 890 ml # Bowel Movements 5 1 1 2 1 Objective Remarks GEN: Appears comfortable. NAD. Trach and PEG. Lists to the left. HEAD: Right side facial droop. LUNGS: Decreased sounds in b/l bases, breathing spontaneously via T-piece (6L; FiO2 35%). CARDIOVASCULAR: NRRR, normal S1/S2, no murmur. Grossly normal peripheral perfusion GI/ABD: Soft, non-distended. NEURO: Did not open eyes to sternal rubbing. Flaccid paralysis on the right side. MUSC: No calf asymmetry appreciated SKIN: Sacrum inspected 08/30; previously sacral pressure ulcer extended from anus to coccyx; stage II, unchanged EXTREMITIES: Trace edema bilaterally Other: urinary catheter in place. Procedures ORIF 04/21/17 Intubation 04/30/17 Chest tube placement 05/07/17, removed 05/12/17 Trach placement 05/15/17 PEG tube placement 05/16/17 A/P Assessment and Plan 76 y/o female with HTN, DM admitted for DKA and hip fracture s/p large CVA after ORIF she is currently stable with her current treatment but has had no meaningful functional recovery and do not anticipate any further neurologic recovery from here on. Dr. Harper, Dr. Tran and case management had a long discussion with the daughter on 07/23 and the patient's daughter is still hopeful for full recovery for her mom in spite of her mom's state of health since her CVA. DW the daughter that it is our belief based on her clinical picture that she will not make any sort of meaningful recovery and will remain on the trach and PEG for the rest of her life. DW the daughter due to her status that the patient will likely continue to decline and continue to acquire infections associated with this type of clinical picture including UTI, PNA, and sepsis. DW the daughter to consider the QOL that her mother would have wanted. We recommend that this patient receive Hospice services as we would not anticipate her living longer than 6 months. The daughter does not want to consider this at this time and she is the sole decision maker for this patient. In that case, we will continue to treat the patient aggressively as issues arise and honor the families wishes. A one-hour long family meeting was held (07/26) with patient's daughter Trice, Dr. Harper, Dr. Watts and patient's nurse to discuss patient's poor prognosis. We felt it was important to listen to daughter's perspective and address any questions or concerns she has about her mother's care. Patient goals of care were also discussed. Daughter still wants aggressive treatment. Daughter was informed that from our medical standpoint we do not anticipated any meaningful recovery from her mother's current baseline. Neither do we anticipate for mother to be able to get off PEG tube feeds and trach. However, we will continue to honor daughter's wishes and provide aggressive medical care. ID and pulmonology are actively following. Patient is currently being treated for MDR pseudomonas pna and pulmonology recommended bronchoscopy. Risk and benefits of the procedure were explained and discussed with daughter. The option for her mother not to have the bronchoscopy and to instead continue treatment with antibiotics was also discussed. She is currently unsure about the procedure. She was advised to take time to think about her decision keeping in mind what her mother's wishes would be. 08/02- Daughter at bedside. I had a long discussion with the daughter. Discussed with her about patient's unchanged status. She agreed to thoracentesis done on 08/05. She still wants aggressive care for her mother. Discharge Planning Pending placement, disease case managerhourly shift manager Ramses mendoza [id number] Problem List: (1) Chronic respiratory failure ICD Codes: J96.10 - Chronic respiratory failure, unspecified whether with hypoxia or hypercapnia Plan: -Continue respiratory therapy -T-tube supplementation --Pulmonology following (Dr. Rizo), recommended bronchoscopy procedure, daughter refused -Aerosol nebs -Supplement O2 -TF -Pseudomonas (mcdonald-resistant) on sputum culture 08/25 Impression: No respiratory symptoms or leukocytosis to suggest pneumonia at this time -ID suggest likely colonization at this time, will hold off on cultures unless symptomatic or acute changes present. No antibiotics at this time. -Chest x-ray with no significant change Impression/History: At this point, respiratory failure is chronic on T-tube Hospital Acquired PNA on 07/21 CXR 08/01 demonstrating bilateral airspace disease and effusions, R>L US chest wall 08/02- moderate right pleural effusion. - Consulted IR for US guided thoracentesis, performed on 08/05 removing 1450 cc of clear yellow fluid - Pleural fluid culture from 08/05 with no growth after 72 hours Legionella and S pneumonia urine antigen negative Infection History Pseudomonas hospital-acquired pneumonia - resolved MSSA bacteremia - resolved Serratia/staph aureus pneumonia - resolved C glabrata UTI - resolved Citrobacter UTI - resolved Serratia/MSSA sputum VAP - resolved Antibiotic History Cefazolin: 04/21-04/22, 05/15-05/16 Cefepime: 04/30-05/04, 05/27-06/03 Ceftrioxone 05/26-05/27 Erythromycin 06/16-06/18, 06/19 Gentamicin 04/21 vancomycin 04/30-05/04, 06/21-06/23 Zosyn 07/21 - 07/25 Azithromycin 07/21 - 07/25 Fluconazole 04/29 - ; 07/26 ceftolozane/ tazobactam 07/25 - 08/06 Colistin nebs q8h 08/06 - 08/11 (2) Pleural effusion ICD Codes: J90 - Pleural effusion, not elsewhere classified Status: Acute Plan: US chest 08/01 demonstrating moderate right pleural effusion Consulted IR for US guided thoracentesis, performed on 08/05 removing 1450 cc of clear yellow fluid - Pleural fluid culture from 08/05 with no growth after 72 hours Further plan as above -Repeat CXR 08/27 with no significant change (3) Acute CVA (cerebrovascular accident) ICD Codes: I63.9 - Cerebral infarction, unspecified Status: Chronic Plan: Neurologically stable, no improvement. Overall prognosis is poor. Persistent oxygen requirement See above note about meeting with Daughter on 07/23 and 07/26. Daughter still desires full code and aggressive care -Titrate oxygen via trach to maintain O2 saturation above 92% -Continue tube fees at 45ml/hr 24 hours per day thru peg Tube -Neurosurgery, neurology and palliative care have all been consulted in the past and agree with very poor prognosis with no meaningful neurologic recovery. History and imaging: Patient found minimally responsive with neurological deficits around 0820 04/24. Stat CT of head was ordered, which showed large left MCA infarct. Diffuse edema throughout the left MCA distribution, suggested completed infarct. This was discussed and was not a candidate for intracranial intervention. CT (04/30): Reduction in midline shift to 11mm. Unchanged large left MCA infarction. CT head (05/06) shows: Evolving large left-sided MCA territory infarct with minimally improved [id number] subfalcine shift. No intercurrent hemorrhage or other acute abnormality. Echocardiogram- The left ventricular systolic function is low normal with an estimated ejection fraction in the range of 50-55%. Mild concentric left ventricular hypertrophy. Normal left ventricular size. [id number] mitral valve regurgitation. Carotid Artery US- No hemodynamically significant carotid stenosis (4) UTI (urinary tract infection) ICD Codes: N39.0 - Urinary tract infection, site not specified Status: Resolved Plan: UCx on 07/15 positive for E coli Repeat UCx on 07/20 positive for C. Freundii UCx 07/24 grew only yeast; no bacteria - See above for antibiotic history and coverage (5) Sacral decubitus ulcer ICD Codes: L89.159 - Pressure ulcer of sacral region, unspecified stage Status: Chronic Plan: Patient with Stage II pressure injury over the coccyx -Wound care consult appreciated: 1. Please cleanse coccyx wound every 3 days and PRN for soiling. 2. Apply Calcium Alginate to open wound bed. 3. Secure with bordered gauze every 3 days and PRN for soiling. 4. Continue to turn patient every 2 hours or PRN for comfort. 5. Use one ultrasorb for moisture. Please use flat sheet for repositioning. Review of patient's ulcer today. Continue wound care recommendations. We'll need to further discuss with nursing staff about continued appropriate management of the ulcer. (6) Anemia ICD Codes: D64.9 - Anemia, unspecified Status: Chronic Plan: s/p 1u of PRBC on 05/28/17. Hgb stable Hemoccult negative on 05/29 - monitor H&H periodically (7) Urinary retention ICD Codes: R33.9 - Retention of urine, unspecified Status: Chronic Plan: - Cath last changed 07/15, pt afebrile - Urine output WNL (8) Type 2 diabetes mellitus ICD Codes: E11.9 - Type 2 diabetes mellitus without complications Status: Chronic Plan: -continue to monitor BSG -Continue Levemir 7 units q 12 hrs -Will continue to monitor -Glucerna for PEG tube feedings @ 45 ml/hr -Glucagon 1 mg per PRN protocol for hypoglycemia BS <70mg/dL History Admitted for DKA which has now resolved. Hemoglobin A1C 12.9 04/2017 (9) Hip fracture ICD Codes: S72.009A - Fracture of unspecified part of neck of unspecified femur , initial encounter for closed fracture Status: Resolved Plan: S/P left hip reduction and intramedullary nail fixation on 04-21-17 -c/w Calcium/Vitamin D (10) Hypertension ICD Codes: I10 - Essential (primary) hypertension Status: Chronic Plan: -Antihypertensives to keep SBP<160 -c/w clonidine 0.1mg Q6h PRN SBP >160 -c/w lisinopril 40mg Q12h po -Amlodipine increased to 10 mg daily 09/02/17 Echocardiogram 04/24 - EF 50 to 55%. Mild concentric LVH. (11) Fluids, Electrolytes, and Nutrition Status: Acute Plan: Fluids: through PEG tube Electrolyte: Continue to monitor periodically, replete as needed Nutrition: continuous Glucerna tube feeds and free water, pump at 45mls/hr, tolerating feeds well, no residual. Protein 1 pack TID. Supplements: calcium TID and vit D3 QD DVT ppx: SCDs/heparin CVA ppx: aspirin 325 mg QD GI ppx: Lansoprazole 30mg qd via NG See the residents documentation for details. I saw and evaluated the patient regarding the nelson portions of this evaluation and agree with the residents findings and plans as written. Problem Qualifiers (1) Chronic respiratory failure: Qualified Codes: J96.11 - Chronic respiratory failure with hypoxia (2) UTI (urinary tract infection): Qualified Codes: N39.0 - Urinary tract infection, site not specified (3) Sacral decubitus ulcer: Qualified Codes: L89.152 - Pressure ulcer of sacral region, stage 2 (4) Type 2 diabetes mellitus: Qualified Codes: E11.9 - Type 2 diabetes mellitus without complications (5) Hip fracture: (6) Hypertension: Qualified Codes: I10 - Essential (primary) hypertension Jose R Soriano MD R1 Sep 02, 2017 10:45
--- NOTE | 2017-09-02 18:43 | HHI.PR ---
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 opens eyes, No new complaint no fever Objective Vital Signs Vital Signs Date Time Temp Pulse Resp B/P (MAP) Pulse Ox O2 Delivery O2 Flow Rate FiO2 09/02/17 16:00 96.3 88 17 160/76 (104) 97 09/02/17 09:41 97 T-piece 6.00 28 09/02/17 09:41 97 T-piece 6.00 28 09/02/17 08:23 97 T-Piece 4.00 28 09/02/17 08:00 97.4 85 17 171/79 (109) 96 09/02/17 00:30 98 T-piece 09/02/17 00:30 98 T-piece 09/02/17 00:00 96.3 88 18 157/74 (101) 98 09/01/17 21:00 94 T-Piece 4.00 09/01/17 20:00 96.8 82 18 148/69 (95) 97 I/O 09/01/17 09/01/17 09/01/17 09/02/17 09/02/17 09/02/17 07:00 15:00 23:00 07:00 15:00 23:00 Intake Total 1508 ml 0 ml Output Total 1350 ml 650 ml 890 ml 800 ml Balance -1350 ml 858 ml -890 ml -800 ml Intake Oral 0 ml 0 ml Tube Feeding 1008 ml Other 500 ml Output Urine Total 1350 ml 650 ml 890 ml 800 ml # Bowel Movements 5 1 1 2 1 2 Objective Remarks GENERAL: Elderly female,NAD SKIN: Warm and dry. HEAD: Normocephalic. EYES: No scleral icterus. No injection or drainage. NECK: Supple, trachea midline. No JVD or lymphadenopathy. CARDIOVASCULAR: Regular rate and rhythm without murmurs, gallops, or rubs. RESPIRATORY: Breath sounds equal bilaterally. No accessory muscle use. GASTROINTESTINAL: Abdomen soft, non-tender, nondistended. MUSCULOSKELETAL: No cyanosis, or edema. BACK: Nontender without obvious deformity. No CVA tenderness. A/P Assessment and Plan RF,S/P Trach CVA Pneumonia Pleural effusion Pseudomonas Tracheobronchitis, ? colonisation PLAN: Cont trach collar Aerosol nebs Supplement 02 Trach care TF Chris Rizo MD Sep 02, 2017 18:43
[2017-09-03] VITALS (9 sets, daily range): BP systolic 132–158; BP diastolic 63–74; PULSE 76–85; RESP 16–20; TEMP 95.4–96.6; O2SAT 95–100
[2017-09-03] MEDS: INSULIN ASPART SUPPLEMENTAL SCALE SQ SCH ×4 (01:39→17:17)
[2017-09-03] MEDS: ARTIFICIAL TEARS OPTH SOLN 15 ML BTL EACH EYE SCH ×3 (06:57→21:29)
[2017-09-03] MEDS: HEPARIN SODIUM - SQ 10,000 UNITS/ML VIAL SQ SCH ×3 (07:04→21:29)
[2017-09-03] MEDS: ASPIRIN 325 MG TAB DOBHOFF SCH (08:48)
[2017-09-03] MEDS: LISINOPRIL 20 MG TAB PO SCH ×2 (08:49→21:29)
[2017-09-03] MEDS: CALCIUM/VITAMIN D 250 MG/125 U TAB PO SCH ×3 (08:49→17:17)
[2017-09-03] MEDS: LANSOPRAZOLE SOLUTAB 30 MG TAB NG SCH (08:50)
[2017-09-03] MEDS: CHOLECALCIFEROL (VIT D3) 5000 UNIT CAP PO SCH (08:50)
[2017-09-03] MEDS: SODIUM CHLORIDE 0.9% FLUSH 5 ML FLUSH IV FLUSH SCH ×2 (09:00→21:30)
[2017-09-03] MEDS: POLYETHYLENE GLYCOL 17 GM PKG PEG SCH (09:00)
[2017-09-03] MEDS: BENEPROTEIN POWDER 1 PACK G-TUBE SCH ×3 (09:00→17:17)
[2017-09-03] MEDS: INSULIN DETEMIR 100 UNITS/ML VIAL SQ SCH ×2 (09:00→21:33)
--- NOTE | 2017-09-03 10:36 | HHI.FPPN ---
Subjective Remarks Patient seen and examined this morning. No acute events overnight. Stable neuro status. Moves LUE spontaneously. Opens eyes occasionally. Objective Vitals Vital Signs Date Time Temp Pulse Resp B/P (MAP) Pulse Ox O2 Delivery O2 Flow Rate FiO2 09/03/17 08:00 95.4 81 18 158/74 (102) 97 09/03/17 04:24 95 T-piece 6.00 28 09/03/17 04:24 95 T-piece 6.00 28 09/03/17 00:00 96.6 82 20 144/69 (94) 97 09/02/17 20:47 94 T-piece 28 09/02/17 20:47 94 28 09/02/17 20:43 93 Trach Collar 5.50 28 09/02/17 20:00 96.9 86 22 156/72 (100) 97 09/02/17 16:00 96.3 88 17 160/76 (104) 97 I/O 09/02/17 09/02/17 09/02/17 09/03/17 09/03/17 09/03/17 07:00 15:00 23:00 07:00 15:00 23:00 Intake Total 1568 ml 540 ml Output Total 890 ml 800 ml 1000 ml Balance -890 ml 768 ml -460 ml Intake Oral 0 ml 0 ml Tube Feeding 1018 ml 540 ml Tube Irrigant 550 ml Output Urine Total 890 ml 800 ml 1000 ml # Bowel Movements 2 1 2 2 Objective Remarks GEN: Appears comfortable. NAD. Trach and PEG. Lists to the left. HEAD: Right side facial droop. LUNGS: Decreased sounds in b/l bases, breathing spontaneously via T-piece (6L; FiO2 35%). CARDIOVASCULAR: NRRR, normal S1/S2, no murmur. Grossly normal peripheral perfusion GI/ABD: Soft, non-distended. NEURO: Flaccid paralysis on the right side. MUSC: No calf asymmetry appreciated SKIN: Sacrum inspected 1/3; previously sacral pressure ulcer extended from anus to coccyx; stage II, unchanged EXTREMITIES: Trace edema bilaterally Other: urinary catheter in place. Procedures ORIF 04/21/17 Intubation 04/30/17 Chest tube placement 05/07/17, removed 05/12/17 Trach placement 05/15/17 PEG tube placement 05/16/17 A/P Assessment and Plan 76 y/o female with HTN, DM admitted for DKA and hip fracture s/p large CVA after ORIF she is currently stable with her current treatment but has had no meaningful functional recovery and do not anticipate any further neurologic recovery from here on. Dr. Harper, Dr. Tran and case management had a long discussion with the daughter on 07/23 and the patient's daughter is still hopeful for full recovery for her mom in spite of her mom's state of health since her CVA. DW the daughter that it is our belief based on her clinical picture that she will not make any sort of meaningful recovery and will remain on the trach and PEG for the rest of her life. DW the daughter due to her status that the patient will likely continue to decline and continue to acquire infections associated with this type of clinical picture including UTI, PNA, and sepsis. DW the daughter to consider the QOL that her mother would have wanted. We recommend that this patient receive Hospice services as we would not anticipate her living longer than 6 months. The daughter does not want to consider this at this time and she is the sole decision maker for this patient. In that case, we will continue to treat the patient aggressively as issues arise and honor the families wishes. A one-hour long family meeting was held (07/26) with patient's daughter Trice, Dr. Harper, Dr. Watts and patient's nurse to discuss patient's poor prognosis. We felt it was important to listen to daughter's perspective and address any questions or concerns she has about her mother's care. Patient goals of care were also discussed. Daughter still wants aggressive treatment. Daughter was informed that from our medical standpoint we do not anticipated any meaningful recovery from her mother's current baseline. Neither do we anticipate for mother to be able to get off PEG tube feeds and trach. However, we will continue to honor daughter's wishes and provide aggressive medical care. ID and pulmonology are actively following. Patient is currently being treated for MDR pseudomonas pna and pulmonology recommended bronchoscopy. Risk and benefits of the procedure were explained and discussed with daughter. The option for her mother not to have the bronchoscopy and to instead continue treatment with antibiotics was also discussed. She is currently unsure about the procedure. She was advised to take time to think about her decision keeping in mind what her mother's wishes would be. 08/02- Daughter at bedside. I had a long discussion with the daughter. Discussed with her about patient's unchanged status. She agreed to thoracentesis done on 08/05. She still wants aggressive care for her mother. Discharge Planning Pending placement, porter sample casemanager of health Ramses mendoza [id number] Problem List: (1) Chronic respiratory failure ICD Codes: J96.10 - Chronic respiratory failure, unspecified whether with hypoxia or hypercapnia Plan: -Continue respiratory therapy -T-tube supplementation --Pulmonology following (Dr. Rizo), recommended bronchoscopy procedure, daughter refused -Aerosol nebs -Supplement O2 -TF -Pseudomonas (mcdonald-resistant) on sputum culture 08/25 Impression: No respiratory symptoms or leukocytosis to suggest pneumonia at this time -ID suggest likely colonization at this time, will hold off on cultures unless symptomatic or acute changes present. No antibiotics at this time. -Chest x-ray with no significant change Impression/History: At this point, respiratory failure is chronic on T-tube Hospital Acquired PNA on 07/21 CXR 08/01 demonstrating bilateral airspace disease and effusions, R>L US chest wall 08/02- moderate right pleural effusion. - Consulted IR for US guided thoracentesis, performed on 08/05 removing 1450 cc of clear yellow fluid - Pleural fluid culture from 08/05 with no growth after 72 hours Legionella and S pneumonia urine antigen negative Infection History Pseudomonas hospital-acquired pneumonia - resolved MSSA bacteremia - resolved Serratia/staph aureus pneumonia - resolved C glabrata UTI - resolved Citrobacter UTI - resolved Serratia/MSSA sputum VAP - resolved Antibiotic History Cefazolin: 04/21-04/22, 05/15-05/16 Cefepime: 04/30-05/04, 05/27-06/03 Ceftrioxone 05/26-05/27 Erythromycin 06/16-06/18, 06/19 Gentamicin 04/21 vancomycin 04/30-05/04, 06/21-06/23 Zosyn 07/21 - 07/25 Azithromycin 07/21 - 07/25 Fluconazole 04/29 - ; 07/26 ceftolozane/ tazobactam 07/25 - 08/06 Colistin nebs q8h 08/06 - 08/11 (2) Pleural effusion ICD Codes: J90 - Pleural effusion, not elsewhere classified Status: Acute Plan: US chest 08/01 demonstrating moderate right pleural effusion Consulted IR for US guided thoracentesis, performed on 08/05 removing 1450 cc of clear yellow fluid - Pleural fluid culture from 08/05 with no growth after 72 hours Further plan as above -Repeat CXR 08/27 with no significant change (3) Acute CVA (cerebrovascular accident) ICD Codes: I63.9 - Cerebral infarction, unspecified Status: Chronic Plan: Neurologically stable, no improvement. Overall prognosis is poor. Persistent oxygen requirement See above note about meeting with Daughter on 07/23 and 07/26. Daughter still desires full code and aggressive care -Titrate oxygen via trach to maintain O2 saturation above 92% -Continue tube fees at 45ml/hr 24 hours per day thru peg Tube -Neurosurgery, neurology and palliative care have all been consulted in the past and agree with very poor prognosis with no meaningful neurologic recovery. History and imaging: Patient found minimally responsive with neurological deficits around 0820 04/24. Stat CT of head was ordered, which showed large left MCA infarct. Diffuse edema throughout the left MCA distribution, suggested completed infarct. This was discussed and was not a candidate for intracranial intervention. CT (04/30): Reduction in midline shift to 11mm. Unchanged large left MCA infarction. CT head (05/06) shows: Evolving large left-sided MCA territory infarct with minimally improved [id number] subfalcine shift. No intercurrent hemorrhage or other acute abnormality. Echocardiogram- The left ventricular systolic function is low normal with an estimated ejection fraction in the range of 50-55%. Mild concentric left ventricular hypertrophy. Normal left ventricular size. [id number] mitral valve regurgitation. Carotid Artery US- No hemodynamically significant carotid stenosis (4) UTI (urinary tract infection) ICD Codes: N39.0 - Urinary tract infection, site not specified Status: Resolved Plan: UCx on 07/15 positive for E coli Repeat UCx on 07/20 positive for C. Freundii UCx 07/24 grew only yeast; no bacteria - See above for antibiotic history and coverage (5) Sacral decubitus ulcer ICD Codes: L89.159 - Pressure ulcer of sacral region, unspecified stage Status: Chronic Plan: Patient with Stage II pressure injury over the coccyx -Wound care consult appreciated: 1. Please cleanse coccyx wound every 3 days and PRN for soiling. 2. Apply Calcium Alginate to open wound bed. 3. Secure with bordered gauze every 3 days and PRN for soiling. 4. Continue to turn patient every 2 hours or PRN for comfort. 5. Use one ultrasorb for moisture. Please use flat sheet for repositioning. Review of patient's ulcer today. Continue wound care recommendations. We'll need to further discuss with nursing staff about continued appropriate management of the ulcer. (6) Anemia ICD Codes: D64.9 - Anemia, unspecified Status: Chronic Plan: s/p 1u of PRBC on 05/28/17. Hgb stable Hemoccult negative on 05/29 - monitor H&H periodically (7) Urinary retention ICD Codes: R33.9 - Retention of urine, unspecified Status: Chronic Plan: - Cath last changed 07/15, pt afebrile - Urine output WNL (8) Type 2 diabetes mellitus ICD Codes: E11.9 - Type 2 diabetes mellitus without complications Status: Chronic Plan: -continue to monitor BSG -Continue Levemir 7 units q 12 hrs -Will continue to monitor -Glucerna for PEG tube feedings @ 45 ml/hr -Glucagon 1 mg per PRN protocol for hypoglycemia BS <70mg/dL History Admitted for DKA which has now resolved. Hemoglobin A1C 12.9 04/2017 (9) Hip fracture ICD Codes: S72.009A - Fracture of unspecified part of neck of unspecified femur , initial encounter for closed fracture Status: Resolved Plan: S/P left hip reduction and intramedullary nail fixation on 04-21-17 -c/w Calcium/Vitamin D (10) Hypertension ICD Codes: I10 - Essential (primary) hypertension Status: Chronic Plan: -Antihypertensives to keep SBP<160 -Amlodipine 5mg daily -c/w clonidine 0.1mg Q6h PRN SBP >160 -c/w lisinopril 40mg Q12h po Echocardiogram 04/24 - EF 50 to 55%. Mild concentric LVH. (11) Fluids, Electrolytes, and Nutrition Status: Acute Plan: Fluids: through PEG tube Electrolyte: Continue to monitor periodically, replete as needed Nutrition: continuous Glucerna tube feeds and free water, pump at 45mls/hr, tolerating feeds well, no residual. Protein 1 pack TID. Supplements: calcium TID and vit D3 QD DVT ppx: SCDs/heparin CVA ppx: aspirin 325 mg QD GI ppx: Lansoprazole 30mg qd via NG See the residents documentation for details. I saw and evaluated the patient regarding the nelson portions of this evaluation and agree with the residents findings and plans as written. Problem Qualifiers (1) Chronic respiratory failure: Qualified Codes: J96.11 - Chronic respiratory failure with hypoxia (2) UTI (urinary tract infection): Qualified Codes: N39.0 - Urinary tract infection, site not specified (3) Sacral decubitus ulcer: Qualified Codes: L89.152 - Pressure ulcer of sacral region, stage 2 (4) Type 2 diabetes mellitus: Qualified Codes: E11.9 - Type 2 diabetes mellitus without complications (5) Hip fracture: (6) Hypertension: Qualified Codes: I10 - Essential (primary) hypertension Moisés Hanson MD, R2 Sep 03, 2017 10:36
--- NOTE | 2017-09-03 19:03 | HHI.PR ---
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 opens eyes, No new complaint no fever Had BM Objective Vital Signs Vital Signs Date Time Temp Pulse Resp B/P (MAP) Pulse Ox O2 Delivery O2 Flow Rate FiO2 09/03/17 18:06 98 T-piece 6.00 28 09/03/17 18:05 98 T-piece 6.00 28 09/03/17 16:00 96.5 85 17 153/74 (100) 98 09/03/17 12:00 96.3 76 18 132/63 (86) 95 09/03/17 11:28 95 T-piece 28 09/03/17 10:54 Trach Collar 28 09/03/17 08:00 95.4 81 18 158/74 (102) 97 09/03/17 04:24 95 T-piece 6.00 28 09/03/17 04:24 95 T-piece 6.00 28 09/03/17 00:00 96.6 82 20 144/69 (94) 97 09/02/17 20:47 94 T-piece 28 09/02/17 20:47 94 28 09/02/17 20:43 93 Trach Collar 5.50 28 09/02/17 20:00 96.9 86 22 156/72 (100) 97 I/O 09/02/17 09/02/17 09/02/17 09/03/17 09/03/17 09/03/17 07:00 15:00 23:00 07:00 15:00 23:00 Intake Total 1568 ml 540 ml 720 ml Output Total 890 ml 800 ml 1000 ml 650 ml Balance -890 ml 768 ml -460 ml 70 ml Intake Oral 0 ml 0 ml 0 ml Tube Feeding 1018 ml 540 ml 540 ml Tube Irrigant 550 ml Other 180 ml Output Urine Total 890 ml 800 ml 1000 ml 650 ml # Bowel Movements 2 1 2 2 1 Objective Remarks GENERAL: Elderly female,NAD SKIN: Warm and dry. HEAD: Normocephalic. EYES: No scleral icterus. No injection or drainage. NECK: Supple, trachea midline. No JVD or lymphadenopathy. CARDIOVASCULAR: Regular rate and rhythm without murmurs, gallops, or rubs. RESPIRATORY: Breath sounds equal bilaterally. No accessory muscle use. GASTROINTESTINAL: Abdomen soft, non-tender, nondistended. MUSCULOSKELETAL: No cyanosis, or edema. BACK: Nontender without obvious deformity. No CVA tenderness. A/P Assessment and Plan RF,S/P Trach CVA Pneumonia Pleural effusion Pseudomonas Tracheobronchitis, ? colonisation PLAN: Cont trach collar Aerosol nebs Supplement 02 Trach care TF DW RN, skin excoriation improving. Chris Rizo MD Sep 03, 2017 19:03
[2017-09-04] VITALS (8 sets, daily range): BP systolic 133–170; BP diastolic 68–83; PULSE 74–92; RESP 18; TEMP 96.3–97.2; O2SAT 95–100
[2017-09-04] MEDS: INSULIN ASPART SUPPLEMENTAL SCALE SQ SCH ×4 (00:34→17:03)
[2017-09-04] MEDS: HEPARIN SODIUM - SQ 10,000 UNITS/ML VIAL SQ SCH ×3 (05:30→22:04)
[2017-09-04] MEDS: ARTIFICIAL TEARS OPTH SOLN 15 ML BTL EACH EYE SCH ×3 (05:31→22:05)
[2017-09-04] MEDS: POLYETHYLENE GLYCOL 17 GM PKG PEG SCH (07:59)
[2017-09-04] MEDS: CHOLECALCIFEROL (VIT D3) 5000 UNIT CAP PO SCH (08:00)
[2017-09-04] MEDS: LISINOPRIL 20 MG TAB PO SCH ×2 (08:00→22:05)
[2017-09-04] MEDS: LANSOPRAZOLE SOLUTAB 30 MG TAB NG SCH (08:00)
[2017-09-04] MEDS: ASPIRIN 325 MG TAB DOBHOFF SCH (08:00)
[2017-09-04] MEDS: CALCIUM/VITAMIN D 250 MG/125 U TAB PO SCH ×3 (08:00→17:02)
[2017-09-04] MEDS: SODIUM CHLORIDE 0.9% FLUSH 5 ML FLUSH IV FLUSH SCH ×2 (08:01→22:05)
[2017-09-04] MEDS: INSULIN DETEMIR 100 UNITS/ML VIAL SQ SCH ×2 (08:01→22:05)
[2017-09-04] MEDS: BENEPROTEIN POWDER 1 PACK G-TUBE SCH ×3 (09:00→17:02)
--- NOTE | 2017-09-04 11:30 | HHI.FPPN ---
Subjective Remarks Pt seen and examined this morning. No acute events overnight. Grimaces with sternal rub. moves left upper extremity spontaneously. Objective Vitals Vital Signs Date Time Temp Pulse Resp B/P (MAP) Pulse Ox O2 Delivery O2 Flow Rate FiO2 09/04/17 11:25 100 T-piece 28.00 09/04/17 11:25 100 T-piece 28 09/04/17 10:12 28 09/04/17 03:50 97 T-piece 6.00 28 09/04/17 03:50 97 T-piece 6.00 28 09/04/17 00:43 96.4 92 18 143/68 (93) 95 09/03/17 21:20 T-Piece 28 09/03/17 20:00 96.3 79 16 144/68 (93) 100 09/03/17 18:06 98 T-piece 6.00 28 09/03/17 18:05 98 T-piece 6.00 28 09/03/17 16:00 96.5 85 17 153/74 (100) 98 09/03/17 12:00 96.3 76 18 132/63 (86) 95 I/O 09/03/17 09/03/17 09/03/17 09/04/17 09/04/17 09/04/17 07:00 15:00 23:00 07:00 15:00 23:00 Intake Total 540 ml 720 ml 460 ml Output Total 1000 ml 650 ml 800 ml Balance -460 ml 70 ml -340 ml Intake Oral 0 ml 0 ml Tube Feeding 540 ml 540 ml 460 ml Other 180 ml Output Urine Total 1000 ml 650 ml 800 ml # Bowel Movements 2 1 Objective Remarks GEN: Appears comfortable. NAD. Trach and PEG. Lists to the left. HEAD: Right side facial droop. LUNGS: Decreased sounds in b/l bases, breathing spontaneously via T-piece (6L; FiO2 35%). CARDIOVASCULAR: NRRR, normal S1/S2, no murmur. Grossly normal peripheral perfusion GI/ABD: Soft, non-distended. NEURO: Flaccid paralysis on the right side. MUSC: No calf asymmetry appreciated SKIN: Sacrum inspected 09/03; previously sacral pressure ulcer extended from anus to coccyx; stage II, unchanged EXTREMITIES: Trace edema bilaterally Other: urinary catheter in place. Procedures ORIF 04/21/17 Intubation 04/30/17 Chest tube placement 05/07/17, removed 05/12/17 Trach placement 05/15/17 PEG tube placement 05/16/17 A/P Assessment and Plan 76 y/o female with HTN, DM admitted for DKA and hip fracture s/p large CVA after ORIF she is currently stable with her current treatment but has had no meaningful functional recovery and do not anticipate any further neurologic recovery from here on. Dr. Harper, Dr. Tran and case management had a long discussion with the daughter on 07/23 and the patient's daughter is still hopeful for full recovery for her mom in spite of her mom's state of health since her CVA. DW the daughter that it is our belief based on her clinical picture that she will not make any sort of meaningful recovery and will remain on the trach and PEG for the rest of her life. DW the daughter due to her status that the patient will likely continue to decline and continue to acquire infections associated with this type of clinical picture including UTI, PNA, and sepsis. DW the daughter to consider the QOL that her mother would have wanted. We recommend that this patient receive Hospice services as we would not anticipate her living longer than 6 months. The daughter does not want to consider this at this time and she is the sole decision maker for this patient. In that case, we will continue to treat the patient aggressively as issues arise and honor the families wishes. A one-hour long family meeting was held (07/26) with patient's daughter Trice, Dr. Harper, Dr. Watts and patient's nurse to discuss patient's poor prognosis. We felt it was important to listen to daughter's perspective and address any questions or concerns she has about her mother's care. Patient goals of care were also discussed. Daughter still wants aggressive treatment. Daughter was informed that from our medical standpoint we do not anticipated any meaningful recovery from her mother's current baseline. Neither do we anticipate for mother to be able to get off PEG tube feeds and trach. However, we will continue to honor daughter's wishes and provide aggressive medical care. ID and pulmonology are actively following. Patient is currently being treated for MDR pseudomonas pna and pulmonology recommended bronchoscopy. Risk and benefits of the procedure were explained and discussed with daughter. The option for her mother not to have the bronchoscopy and to instead continue treatment with antibiotics was also discussed. She is currently unsure about the procedure. She was advised to take time to think about her decision keeping in mind what her mother's wishes would be. 08/02- Daughter at bedside. I had a long discussion with the daughter. Discussed with her about patient's unchanged status. She agreed to thoracentesis done on 08/05. She still wants aggressive care for her mother. Discharge Planning Pending placement, upper caseror manager Ramses mendoza [phone] Problem List: (1) Chronic respiratory failure ICD Codes: J96.10 - Chronic respiratory failure, unspecified whether with hypoxia or hypercapnia Plan: -Continue respiratory therapy -T-tube supplementation --Pulmonology following (Dr. Rizo), recommended bronchoscopy procedure, daughter refused -Aerosol nebs -Supplement O2 -TF -Pseudomonas (mcdonald-resistant) on sputum culture 08/25 Impression: No respiratory symptoms or leukocytosis to suggest pneumonia at this time -ID suggest likely colonization at this time, will hold off on cultures unless symptomatic or acute changes present. No antibiotics at this time. -Chest x-ray with no significant change Impression/History: At this point, respiratory failure is chronic on T-tube Hospital Acquired PNA on 07/21 CXR 08/01 demonstrating bilateral airspace disease and effusions, R>L US chest wall 08/02- moderate right pleural effusion. - Consulted IR for US guided thoracentesis, performed on 08/05 removing 1450 cc of clear yellow fluid - Pleural fluid culture from 08/05 with no growth after 72 hours Legionella and S pneumonia urine antigen negative Infection History Pseudomonas hospital-acquired pneumonia - resolved MSSA bacteremia - resolved Serratia/staph aureus pneumonia - resolved C glabrata UTI - resolved Citrobacter UTI - resolved Serratia/MSSA sputum VAP - resolved Antibiotic History Cefazolin: 04/21-04/22, 05/15-05/16 Cefepime: 04/30-05/04, 05/27-06/03 Ceftrioxone 05/26-05/27 Erythromycin 06/16-06/18, 06/19 Gentamicin 04/21 vancomycin 04/30-05/04, 06/21-06/23 Zosyn 07/21 - 07/25 Azithromycin 07/21 - 07/25 Fluconazole 04/29 - ; 07/26 ceftolozane/ tazobactam 07/25 - 08/06 Colistin nebs q8h 08/06 - 08/11 (2) Pleural effusion ICD Codes: J90 - Pleural effusion, not elsewhere classified Status: Acute Plan: US chest 08/01 demonstrating moderate right pleural effusion Consulted IR for US guided thoracentesis, performed on 08/05 removing 1450 cc of clear yellow fluid - Pleural fluid culture from 08/05 with no growth after 72 hours Further plan as above -Repeat CXR 08/27 with no significant change (3) Acute CVA (cerebrovascular accident) ICD Codes: I63.9 - Cerebral infarction, unspecified Status: Chronic Plan: Neurologically stable, no improvement. Overall prognosis is poor. Persistent oxygen requirement See above note about meeting with Daughter on 07/23 and 07/26. Daughter still desires full code and aggressive care -Titrate oxygen via trach to maintain O2 saturation above 92% -Continue tube fees at 45ml/hr 24 hours per day thru peg Tube -Neurosurgery, neurology and palliative care have all been consulted in the past and agree with very poor prognosis with no meaningful neurologic recovery. History and imaging: Patient found minimally responsive with neurological deficits around 0820 04/24. Stat CT of head was ordered, which showed large left MCA infarct. Diffuse edema throughout the left MCA distribution, suggested completed infarct. This was discussed and was not a candidate for intracranial intervention. CT (04/30): Reduction in midline shift to 11mm. Unchanged large left MCA infarction. CT head (05/06) shows: Evolving large left-sided MCA territory infarct with minimally improved [id number] subfalcine shift. No intercurrent hemorrhage or other acute abnormality. Echocardiogram- The left ventricular systolic function is low normal with an estimated ejection fraction in the range of 50-55%. Mild concentric left ventricular hypertrophy. Normal left ventricular size. [id number]-ic-[id number] mitral valve regurgitation. Carotid Artery US- No hemodynamically significant carotid stenosis (4) UTI (urinary tract infection) ICD Codes: N39.0 - Urinary tract infection, site not specified Status: Resolved Plan: UCx on 07/15 positive for E coli Repeat UCx on 07/20 positive for C. Freundii UCx 07/24 grew only yeast; no bacteria - See above for antibiotic history and coverage (5) Sacral decubitus ulcer ICD Codes: L89.159 - Pressure ulcer of sacral region, unspecified stage Status: Chronic Plan: Patient with Stage II pressure injury over the coccyx -Wound care consult appreciated: 1. Please cleanse coccyx wound every 3 days and PRN for soiling. 2. Apply Calcium Alginate to open wound bed. 3. Secure with bordered gauze every 3 days and PRN for soiling. 4. Continue to turn patient every 2 hours or PRN for comfort. 5. Use one ultrasorb for moisture. Please use flat sheet for repositioning. Review of patient's ulcer today. Continue wound care recommendations. We'll need to further discuss with nursing staff about continued appropriate management of the ulcer. (6) Anemia ICD Codes: D64.9 - Anemia, unspecified Status: Chronic Plan: s/p 1u of PRBC on 05/28/17. Hgb stable Hemoccult negative on 05/29 - monitor H&H periodically (7) Urinary retention ICD Codes: R33.9 - Retention of urine, unspecified Status: Chronic Plan: - Cath last changed 07/15, pt afebrile - Urine output WNL (8) Type 2 diabetes mellitus ICD Codes: E11.9 - Type 2 diabetes mellitus without complications Status: Chronic Plan: -continue to monitor BSG -Continue Levemir 7 units q 12 hrs -Will continue to monitor -Glucerna for PEG tube feedings @ 45 ml/hr -Glucagon 1 mg per PRN protocol for hypoglycemia BS <70mg/dL History Admitted for DKA which has now resolved. Hemoglobin A1C 12.9 04/2017 (9) Hip fracture ICD Codes: S72.009A - Fracture of unspecified part of neck of unspecified femur , initial encounter for closed fracture Status: Resolved Plan: S/P left hip reduction and intramedullary nail fixation on 04-21-17 -c/w Calcium/Vitamin D (10) Hypertension ICD Codes: I10 - Essential (primary) hypertension Status: Chronic Plan: -Antihypertensives to keep SBP<160 -Amlodipine 5mg daily -c/w clonidine 0.1mg Q6h PRN SBP >160 -c/w lisinopril 40mg Q12h po Echocardiogram 04/24 - EF 50 to 55%. Mild concentric LVH. (11) Fluids, Electrolytes, and Nutrition Status: Acute Plan: Fluids: through PEG tube Electrolyte: Continue to monitor periodically, replete as needed Nutrition: continuous Glucerna tube feeds and free water, pump at 45mls/hr, tolerating feeds well, no residual. Protein 1 pack TID. Supplements: calcium TID and vit D3 QD DVT ppx: SCDs/heparin CVA ppx: aspirin 325 mg QD GI ppx: Lansoprazole 30mg qd via NG See the residents documentation for details. I saw and evaluated the patient regarding the nelson portions of this evaluation and agree with the residents findings and plans as written. Problem Qualifiers (1) Chronic respiratory failure: Qualified Codes: J96.11 - Chronic respiratory failure with hypoxia (2) UTI (urinary tract infection): Qualified Codes: N39.0 - Urinary tract infection, site not specified (3) Sacral decubitus ulcer: Qualified Codes: L89.152 - Pressure ulcer of sacral region, stage 2 (4) Type 2 diabetes mellitus: Qualified Codes: E11.9 - Type 2 diabetes mellitus without complications (5) Hip fracture: (6) Hypertension: Qualified Codes: I10 - Essential (primary) hypertension Moisés Hanson MD, R2 Sep 04, 2017 11:30
--- NOTE | 2017-09-04 19:39 | HHI.PR ---
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 opens eyes, No new complaint no fever Was up in the chair Objective Vital Signs Vital Signs Date Time Temp Pulse Resp B/P (MAP) Pulse Ox O2 Delivery O2 Flow Rate FiO2 09/04/17 16:00 97.0 83 18 151/76 (101) 96 09/04/17 12:00 97.0 74 18 133/68 (89) 99 09/04/17 11:25 100 T-piece 28.00 09/04/17 11:25 100 T-piece 28 09/04/17 10:12 28 09/04/17 08:00 96.3 85 18 170/83 (112) 96 09/04/17 03:50 97 T-piece 6.00 28 09/04/17 03:50 97 T-piece 6.00 28 09/04/17 00:43 96.4 92 18 143/68 (93) 95 09/03/17 21:20 T-Piece 28 09/03/17 20:00 96.3 79 16 144/68 (93) 100 I/O 09/03/17 09/03/17 09/03/17 09/04/17 09/04/17 09/04/17 07:00 15:00 23:00 07:00 15:00 23:00 Intake Total 540 ml 720 ml 460 ml 280 ml Output Total 1000 ml 650 ml 800 ml 600 ml Balance -460 ml 70 ml -340 ml -320 ml Intake Oral 0 ml 0 ml IV Total 0 ml Tube Feeding 540 ml 540 ml 460 ml 280 ml Other 180 ml Output Urine Total 1000 ml 650 ml 800 ml 600 ml # Bowel Movements 2 1 1 Objective Remarks GENERAL: Elderly female,NAD SKIN: Warm and dry. HEAD: Normocephalic. EYES: No scleral icterus. No injection or drainage. NECK: Supple, trachea midline. No JVD or lymphadenopathy. CARDIOVASCULAR: Regular rate and rhythm without murmurs, gallops, or rubs. RESPIRATORY: Breath sounds equal bilaterally. No accessory muscle use. GASTROINTESTINAL: Abdomen soft, non-tender, nondistended. MUSCULOSKELETAL: No cyanosis, or edema. BACK: Nontender without obvious deformity. No CVA tenderness. A/P Assessment and Plan RF,S/P Trach CVA Pneumonia Pleural effusion Pseudomonas Tracheobronchitis, ? colonisation PLAN: Cont trach collar Aerosol nebs Supplement 02 Trach care TF LAI RN, Chris Rizo MD Sep 04, 2017 19:39
[2017-09-05] VITALS (8 sets, daily range): BP systolic 142–159; BP diastolic 64–75; PULSE 75–99; RESP 16–18; TEMP 95.4–97.8; O2SAT 93–100
[2017-09-05] MEDS: INSULIN ASPART SUPPLEMENTAL SCALE SQ SCH ×5 (00:40→23:25)
[2017-09-05] MEDS: HEPARIN SODIUM - SQ 10,000 UNITS/ML VIAL SQ SCH ×3 (05:08→23:01)
[2017-09-05] MEDS: ARTIFICIAL TEARS OPTH SOLN 15 ML BTL EACH EYE SCH ×3 (05:08→23:03)
[2017-09-05] MEDS: POLYETHYLENE GLYCOL 17 GM PKG PEG SCH ×2 (09:00→09:57)
[2017-09-05] MEDS: SODIUM CHLORIDE 0.9% FLUSH 5 ML FLUSH IV FLUSH SCH ×2 (09:00→23:02)
[2017-09-05] MEDS: BENEPROTEIN POWDER 1 PACK G-TUBE SCH ×3 (09:00→18:00)
[2017-09-05] MEDS: INSULIN DETEMIR 100 UNITS/ML VIAL SQ SCH ×2 (09:55→23:01)
[2017-09-05] MEDS: CALCIUM/VITAMIN D 250 MG/125 U TAB PO SCH ×3 (09:57→18:47)
[2017-09-05] MEDS: CHOLECALCIFEROL (VIT D3) 5000 UNIT CAP PO SCH (09:57)
[2017-09-05] MEDS: ASPIRIN 325 MG TAB DOBHOFF SCH (09:57)
[2017-09-05] MEDS: LISINOPRIL 20 MG TAB PO SCH ×2 (09:57→23:00)
[2017-09-05] MEDS: LANSOPRAZOLE SOLUTAB 30 MG TAB NG SCH (09:57)
[2017-09-05] MEDS ORDERED: PILL SPLITTER OTHER PRN (11:00)
--- NOTE | 2017-09-05 12:38 | HHI.FPPN ---
Subjective Remarks Patient seen and examined this morning. No acute events overnight. Eyes open while in room, could follow commands, would move left arm/leg. Does not respond verbally. Afebrile overnight. Objective Vitals Vital Signs Date Time Temp Pulse Resp B/P (MAP) Pulse Ox O2 Delivery O2 Flow Rate FiO2 09/05/17 08:00 97.7 75 18 150/70 (96) 98 09/05/17 00:00 96.5 99 18 159/75 (103) 98 09/04/17 22:05 T-Piece 28 09/04/17 20:59 100 Nasal Cannula 28 09/04/17 20:00 97.2 81 18 158/70 (99) 100 09/04/17 16:00 97.0 83 18 151/76 (101) 96 I/O 09/04/17 09/04/17 09/04/17 09/05/17 09/05/17 09/05/17 07:00 15:00 23:00 07:00 15:00 23:00 Intake Total 460 ml 280 ml 1180 ml Output Total 800 ml 600 ml 800 ml Balance -340 ml -320 ml 380 ml Intake Oral 0 ml IV Total 0 ml Tube Feeding 460 ml 280 ml 1000 ml Other 180 ml Output Urine Total 800 ml 600 ml 800 ml # Bowel Movements 1 2 Objective Remarks GEN: Appears comfortable. NAD. Trach and PEG. Lists to the left. HEAD: Right side facial droop. Left sided gaze. LUNGS: Decreased sounds in b/l bases, breathing spontaneously via T-piece (6L; FiO2 35%). CARDIOVASCULAR: NRRR, normal S1/S2, no murmur. Grossly normal peripheral perfusion GI/ABD: Soft, non-distended. NEURO: Flaccid paralysis on the right side. MUSC: No calf asymmetry appreciated SKIN: Sacrum inspected /3; previously sacral pressure ulcer extended from anus to coccyx; stage II, unchanged EXTREMITIES: Trace edema bilaterally Other: urinary catheter in place. Procedures ORIF 04/21/17 Intubation 04/30/17 Chest tube placement 05/07/17, removed 05/12/17 Trach placement 05/15/17 PEG tube placement 05/16/17 A/P Assessment and Plan 76 y/o female with HTN, DM admitted for DKA and hip fracture s/p large CVA after ORIF she is currently stable with her current treatment but has had no meaningful functional recovery and do not anticipate any further neurologic recovery from here on. Dr. Harper, Dr. Tran and case management had a long discussion with the daughter on 07/23 and the patient's daughter is still hopeful for full recovery for her mom in spite of her mom's state of health since her CVA. DW the daughter that it is our belief based on her clinical picture that she will not make any sort of meaningful recovery and will remain on the trach and PEG for the rest of her life. DW the daughter due to her status that the patient will likely continue to decline and continue to acquire infections associated with this type of clinical picture including UTI, PNA, and sepsis. DW the daughter to consider the QOL that her mother would have wanted. We recommend that this patient receive Hospice services as we would not anticipate her living longer than 6 months. The daughter does not want to consider this at this time and she is the sole decision maker for this patient. In that case, we will continue to treat the patient aggressively as issues arise and honor the families wishes. A one-hour long family meeting was held (07/26) with patient's daughter Trice, Dr. Harper, Dr. Watts and patient's nurse to discuss patient's poor prognosis. We felt it was important to listen to daughter's perspective and address any questions or concerns she has about her mother's care. Patient goals of care were also discussed. Daughter still wants aggressive treatment. Daughter was informed that from our medical standpoint we do not anticipated any meaningful recovery from her mother's current baseline. Neither do we anticipate for mother to be able to get off PEG tube feeds and trach. However, we will continue to honor daughter's wishes and provide aggressive medical care. ID and pulmonology are actively following. Patient is currently being treated for MDR pseudomonas pna and pulmonology recommended bronchoscopy. Risk and benefits of the procedure were explained and discussed with daughter. The option for her mother not to have the bronchoscopy and to instead continue treatment with antibiotics was also discussed. She is currently unsure about the procedure. She was advised to take time to think about her decision keeping in mind what her mother's wishes would be. 08/02- Daughter at bedside. I had a long discussion with the daughter. Discussed with her about patient's unchanged status. She agreed to thoracentesis done on 08/05. She still wants aggressive care for her mother. Discharge Planning Pending placement, counter caserassistant community manager Ramses mendoza [phone] Problem List: (1) Chronic respiratory failure ICD Codes: J96.10 - Chronic respiratory failure, unspecified whether with hypoxia or hypercapnia Plan: -Continue respiratory therapy -T-tube supplementation --Pulmonology following (Dr. Rizo), recommended bronchoscopy procedure, daughter refused -Aerosol nebs -Supplement O2 -TF -Pseudomonas (mcdonald-resistant) on sputum culture 08/25 Impression: No respiratory symptoms or leukocytosis to suggest pneumonia at this time -ID suggest likely colonization at this time, will hold off on cultures unless symptomatic or acute changes present. No antibiotics at this time. -Chest x-ray with no significant change Impression/History: At this point, respiratory failure is chronic on T-tube Hospital Acquired PNA on 07/21 CXR 08/01 demonstrating bilateral airspace disease and effusions, R>L US chest wall 08/02- moderate right pleural effusion. - Consulted IR for US guided thoracentesis, performed on 08/05 removing 1450 cc of clear yellow fluid - Pleural fluid culture from 08/05 with no growth after 72 hours Legionella and S pneumonia urine antigen negative Infection History Pseudomonas hospital-acquired pneumonia - resolved MSSA bacteremia - resolved Serratia/staph aureus pneumonia - resolved C glabrata UTI - resolved Citrobacter UTI - resolved Serratia/MSSA sputum VAP - resolved Antibiotic History Cefazolin: 04/21-04/22, 05/15-05/16 Cefepime: 04/30-05/04, 05/27-06/03 Ceftrioxone 05/26-05/27 Erythromycin 06/16-06/18, 06/19 Gentamicin 04/21 vancomycin 04/30-05/04, 06/21-06/23 Zosyn 07/21 - 07/25 Azithromycin 07/21 - 07/25 Fluconazole 04/29 - ; 07/26 ceftolozane/ tazobactam 07/25 - 08/06 Colistin nebs q8h 08/06 - 08/11 (2) Pleural effusion ICD Codes: J90 - Pleural effusion, not elsewhere classified Status: Acute Plan: US chest 08/01 demonstrating moderate right pleural effusion Consulted IR for US guided thoracentesis, performed on 08/05 removing 1450 cc of clear yellow fluid - Pleural fluid culture from 08/05 with no growth after 72 hours Further plan as above -Repeat CXR 08/27 with no significant change (3) Acute CVA (cerebrovascular accident) ICD Codes: I63.9 - Cerebral infarction, unspecified Status: Chronic Plan: Neurologically stable, no improvement. Overall prognosis is poor. Persistent oxygen requirement See above note about meeting with Daughter on 07/23 and 07/26. Daughter still desires full code and aggressive care -Titrate oxygen via trach to maintain O2 saturation above 92% -Continue tube fees at 45ml/hr 24 hours per day thru peg Tube -Neurosurgery, neurology and palliative care have all been consulted in the past and agree with very poor prognosis with no meaningful neurologic recovery. History and imaging: Patient found minimally responsive with neurological deficits around 0820 04/24. Stat CT of head was ordered, which showed large left MCA infarct. Diffuse edema throughout the left MCA distribution, suggested completed infarct. This was discussed and was not a candidate for intracranial intervention. CT (04/30): Reduction in midline shift to 11mm. Unchanged large left MCA infarction. CT head (05/06) shows: Evolving large left-sided MCA territory infarct with minimally improved [id number]-gfjjv subfalcine shift. No intercurrent hemorrhage or other acute abnormality. Echocardiogram- The left ventricular systolic function is low normal with an estimated ejection fraction in the range of 50-55%. Mild concentric left ventricular hypertrophy. Normal left ventricular size. Jevhk-cy-khnd mitral valve regurgitation. Carotid Artery US- No hemodynamically significant carotid stenosis (4) UTI (urinary tract infection) ICD Codes: N39.0 - Urinary tract infection, site not specified Status: Resolved Plan: UCx on 07/15 positive for E coli Repeat UCx on 07/20 positive for C. Freundii UCx 07/24 grew only yeast; no bacteria - See above for antibiotic history and coverage (5) Sacral decubitus ulcer ICD Codes: L89.159 - Pressure ulcer of sacral region, unspecified stage Status: Chronic Plan: Patient with Stage II pressure injury over the coccyx -Wound care consult appreciated: 1. Please cleanse coccyx wound every 3 days and PRN for soiling. 2. Apply Calcium Alginate to open wound bed. 3. Secure with bordered gauze every 3 days and PRN for soiling. 4. Continue to turn patient every 2 hours or PRN for comfort. 5. Use one ultrasorb for moisture. Please use flat sheet for repositioning. Review of patient's ulcer today. Continue wound care recommendations. We'll need to further discuss with nursing staff about continued appropriate management of the ulcer. (6) Anemia ICD Codes: D64.9 - Anemia, unspecified Status: Chronic Plan: s/p 1u of PRBC on 05/28/17. Hgb stable Hemoccult negative on 05/29 - monitor H&H periodically (7) Urinary retention ICD Codes: R33.9 - Retention of urine, unspecified Status: Chronic Plan: - Cath last changed 07/15, pt afebrile - Urine output WNL (8) Type 2 diabetes mellitus ICD Codes: E11.9 - Type 2 diabetes mellitus without complications Status: Chronic Plan: -continue to monitor BSG -Continue Levemir 7 units q 12 hrs -Will continue to monitor -Glucerna for PEG tube feedings @ 45 ml/hr -Glucagon 1 mg per PRN protocol for hypoglycemia BS <70mg/dL History Admitted for DKA which has now resolved. Hemoglobin A1C 12.9 04/2017 (9) Hip fracture ICD Codes: S72.009A - Fracture of unspecified part of neck of unspecified femur , initial encounter for closed fracture Status: Resolved Plan: S/P left hip reduction and intramedullary nail fixation on 04-21-17 -c/w Calcium/Vitamin D (10) Hypertension ICD Codes: I10 - Essential (primary) hypertension Status: Chronic Plan: -Antihypertensives to keep SBP<160 -c/w clonidine 0.1mg Q6h PRN SBP >160 -Amlodipine 5mg daily -lisinopril 40mg Q12h po -Started metoprolol 12.5 mg every 12 09/05/17 Echocardiogram 04/24 - EF 50 to 55%. Mild concentric LVH. (11) Fluids, Electrolytes, and Nutrition Status: Acute Plan: Fluids: through PEG tube Electrolyte: Continue to monitor periodically, replete as needed Nutrition: continuous Glucerna tube feeds and free water, pump at 45mls/hr, tolerating feeds well, no residual. Protein 1 pack TID. Supplements: calcium TID and vit D3 QD DVT ppx: SCDs/heparin CVA ppx: aspirin 325 mg QD GI ppx: Lansoprazole 30mg qd via NG See the residents documentation for details. I saw and evaluated the patient regarding the nelson portions of this evaluation and agree with the residents findings and plans as written. Problem Qualifiers (1) Chronic respiratory failure: Qualified Codes: J96.11 - Chronic respiratory failure with hypoxia (2) UTI (urinary tract infection): Qualified Codes: N39.0 - Urinary tract infection, site not specified (3) Sacral decubitus ulcer: Qualified Codes: L89.152 - Pressure ulcer of sacral region, stage 2 (4) Type 2 diabetes mellitus: Qualified Codes: E11.9 - Type 2 diabetes mellitus without complications (5) Hip fracture: (6) Hypertension: Qualified Codes: I10 - Essential (primary) hypertension Jose R Sroiano MD R1 Sep 05, 2017 12:38
[2017-09-05] MEDS: RESP: ALBUTEROL 2.5 MG/IPRATROPIUM 0.5 MG NEB (PRN) NEB (12:42)
--- NOTE | 2017-09-05 18:13 | HHI.PR ---
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 opens eyes, No new complaint no fever Was up in the chair Objective Vital Signs Vital Signs Date Time Temp Pulse Resp B/P (MAP) Pulse Ox O2 Delivery O2 Flow Rate FiO2 09/05/17 17:35 99 T-piece 6.00 28 09/05/17 17:34 99 T-piece 6.00 28 09/05/17 16:00 95.4 76 18 145/65 (91) 93 09/05/17 12:42 100 T-piece 28 09/05/17 12:42 100 T-piece 28 09/05/17 12:00 97.8 83 18 153/69 (97) 100 09/05/17 08:00 97.7 75 18 150/70 (96) 98 09/05/17 00:00 96.5 99 18 159/75 (103) 98 09/04/17 22:05 T-Piece 28 09/04/17 20:59 100 Nasal Cannula 09/04/17 20:00 97.2 81 18 158/70 (99) 100 I/O 09/04/17 09/04/17 09/04/17 09/05/17 09/05/17 09/05/17 07:00 15:00 23:00 07:00 15:00 23:00 Intake Total 460 ml 280 ml 1180 ml Output Total 800 ml 600 ml 800 ml 500 ml Balance -340 ml -320 ml 380 ml -500 ml Intake Oral 0 ml IV Total 0 ml Tube Feeding 460 ml 280 ml 1000 ml Other 180 ml Output Urine Total 800 ml 600 ml 800 ml 500 ml # Bowel Movements 1 2 Objective Remarks GENERAL: Elderly female,NAD SKIN: Warm and dry. HEAD: Normocephalic. EYES: No scleral icterus. No injection or drainage. NECK: Supple, trachea midline. No JVD or lymphadenopathy. CARDIOVASCULAR: Regular rate and rhythm without murmurs, gallops, or rubs. RESPIRATORY: Breath sounds equal bilaterally. No accessory muscle use. GASTROINTESTINAL: Abdomen soft, non-tender, nondistended. MUSCULOSKELETAL: No cyanosis, or edema. BACK: Nontender without obvious deformity. No CVA tenderness. A/P Assessment and Plan RF,S/P Trach CVA Pneumonia Pleural effusion Pseudomonas Tracheobronchitis, ? colonisation PLAN: Cont trach collar Aerosol nebs Supplement 02 Trach care TF Available prn over weekend Chris Rizo MD Sep 05, 2017 18:13
[2017-09-05] MEDS: METOPROLOL TARTRATE 25 MG TAB PO SCH (23:01)
[2017-09-06] VITALS (9 sets, daily range): BP systolic 127–150; BP diastolic 61–74; PULSE 62–79; RESP 15–22; TEMP 96.4–97.6; O2SAT 97–100
[2017-09-06] MEDS: ARTIFICIAL TEARS OPTH SOLN 15 ML BTL EACH EYE SCH ×3 (05:06→22:20)
[2017-09-06] MEDS: HEPARIN SODIUM - SQ 10,000 UNITS/ML VIAL SQ SCH ×3 (05:06→22:40)
[2017-09-06] MEDS: INSULIN ASPART SUPPLEMENTAL SCALE SQ SCH ×3 (05:17→18:02)
[2017-09-06] MEDS: CALCIUM/VITAMIN D 250 MG/125 U TAB PO SCH ×3 (08:45→18:01)
[2017-09-06] MEDS: ASPIRIN 325 MG TAB DOBHOFF SCH (08:45)
[2017-09-06] MEDS: LANSOPRAZOLE SOLUTAB 30 MG TAB NG SCH (08:45)
[2017-09-06] MEDS: CHOLECALCIFEROL (VIT D3) 5000 UNIT CAP PO SCH (08:45)
[2017-09-06] MEDS: INSULIN DETEMIR 100 UNITS/ML VIAL SQ SCH ×2 (08:46→22:39)
[2017-09-06] MEDS: METOPROLOL TARTRATE 25 MG TAB PO SCH (08:46)
[2017-09-06] MEDS: LISINOPRIL 20 MG TAB PO SCH ×2 (08:46→22:20)
[2017-09-06] MEDS: POLYETHYLENE GLYCOL 17 GM PKG PEG SCH (08:46)
[2017-09-06] MEDS: BENEPROTEIN POWDER 1 PACK G-TUBE SCH ×3 (08:51→18:00)
[2017-09-06] MEDS: SODIUM CHLORIDE 0.9% FLUSH 5 ML FLUSH IV FLUSH SCH ×2 (08:51→21:00)
--- NOTE | 2017-09-06 10:04 | HHI.FPPN ---
Subjective Remarks Patient seen and examined this morning. No acute events overnight. Eyes open while in room, could poorly follow commands. Does not respond verbally. Afebrile overnight. Objective Vitals Vital Signs Date Time Temp Pulse Resp B/P (MAP) Pulse Ox O2 Delivery O2 Flow Rate FiO2 09/06/17 09:03 100 Trach Collar 6.00 28 09/06/17 08:00 96.4 79 16 139/64 (89) 100 09/06/17 05:36 22 99 09/06/17 03:02 98 T-piece 6.00 28 09/06/17 00:00 97.2 74 16 150/74 (99) 100 09/05/17 20:00 95 T-Piece 6.00 28 09/05/17 20:00 96.1 88 16 142/64 (90) 93 09/05/17 17:35 99 T-piece 6.00 28 09/05/17 17:34 99 T-piece 6.00 28 09/05/17 16:00 95.4 76 18 145/65 (91) 93 09/05/17 12:42 100 T-piece 28 09/05/17 12:42 100 T-piece 28 09/05/17 12:00 97.8 83 18 153/69 (97) 100 I/O 09/05/17 09/05/17 09/05/17 09/06/17 09/06/17 09/06/17 07:00 15:00 23:00 07:00 15:00 23:00 Intake Total 1180 ml 495 ml Output Total 800 ml 500 ml 1300 ml Balance 380 ml -500 ml -805 ml Intake Oral 0 ml 0 ml Tube Feeding 1000 ml 495 ml Other 180 ml Output Urine Total 800 ml 500 ml 1300 ml # Bowel Movements 2 Objective Remarks GEN: Appears comfortable. NAD. Trach and PEG. Lists to the left. HEAD: Right side facial droop. Left sided gaze. LUNGS: Decreased sounds in b/l bases, breathing spontaneously via T-piece (6L; FiO2 35%). CARDIOVASCULAR: NRRR, normal S1/S2, no murmur. Grossly normal peripheral perfusion GI/ABD: Soft, non-distended. NEURO: Flaccid paralysis on the right side. MUSC: No calf asymmetry appreciated SKIN: Sacrum inspected 1/3; previously sacral pressure ulcer extended from anus to coccyx; stage II, unchanged EXTREMITIES: Trace edema bilaterally Other: urinary catheter in place. Procedures ORIF 04/21/17 Intubation 04/30/17 Chest tube placement 05/07/17, removed 05/12/17 Trach placement 05/15/17 PEG tube placement 05/16/17 A/P Assessment and Plan 76 y/o female with HTN, DM admitted for DKA and hip fracture s/p large CVA after ORIF she is currently stable with her current treatment but has had no meaningful functional recovery and do not anticipate any further neurologic recovery from here on. Dr. Harper, Dr. Tran and case management had a long discussion with the daughter on 07/23 and the patient's daughter is still hopeful for full recovery for her mom in spite of her mom's state of health since her CVA. DW the daughter that it is our belief based on her clinical picture that she will not make any sort of meaningful recovery and will remain on the trach and PEG for the rest of her life. DW the daughter due to her status that the patient will likely continue to decline and continue to acquire infections associated with this type of clinical picture including UTI, PNA, and sepsis. DW the daughter to consider the QOL that her mother would have wanted. We recommend that this patient receive Hospice services as we would not anticipate her living longer than 6 months. The daughter does not want to consider this at this time and she is the sole decision maker for this patient. In that case, we will continue to treat the patient aggressively as issues arise and honor the families wishes. A one-hour long family meeting was held (07/26) with patient's daughter Trice, Dr. Harper, Dr. Watts and patient's nurse to discuss patient's poor prognosis. We felt it was important to listen to daughter's perspective and address any questions or concerns she has about her mother's care. Patient goals of care were also discussed. Daughter still wants aggressive treatment. Daughter was informed that from our medical standpoint we do not anticipated any meaningful recovery from her mother's current baseline. Neither do we anticipate for mother to be able to get off PEG tube feeds and trach. However, we will continue to honor daughter's wishes and provide aggressive medical care. ID and pulmonology are actively following. Patient is currently being treated for MDR pseudomonas pna and pulmonology recommended bronchoscopy. Risk and benefits of the procedure were explained and discussed with daughter. The option for her mother not to have the bronchoscopy and to instead continue treatment with antibiotics was also discussed. She is currently unsure about the procedure. She was advised to take time to think about her decision keeping in mind what her mother's wishes would be. 08/02- Daughter at bedside. I had a long discussion with the daughter. Discussed with her about patient's unchanged status. She agreed to thoracentesis done on 08/05. She still wants aggressive care for her mother. Discharge Planning Pending placement, case linerclinical safety manager Ramses mendoza [id number] Problem List: (1) Chronic respiratory failure ICD Codes: J96.10 - Chronic respiratory failure, unspecified whether with hypoxia or hypercapnia Plan: -Continue respiratory therapy -T-tube supplementation --Pulmonology following (Dr. Rizo), recommended bronchoscopy procedure, daughter refused -Aerosol nebs -Supplement O2 -TF -Pseudomonas (mcdonald-resistant) on sputum culture 08/25 Impression: No respiratory symptoms or leukocytosis to suggest pneumonia at this time -ID suggest likely colonization at this time, will hold off on cultures unless symptomatic or acute changes present. No antibiotics at this time. -Chest x-ray with no significant change Impression/History: At this point, respiratory failure is chronic on T-tube Hospital Acquired PNA on 07/21 CXR 08/01 demonstrating bilateral airspace disease and effusions, R>L US chest wall 08/02- moderate right pleural effusion. - Consulted IR for US guided thoracentesis, performed on 08/05 removing 1450 cc of clear yellow fluid - Pleural fluid culture from 08/05 with no growth after 72 hours Legionella and S pneumonia urine antigen negative Infection History Pseudomonas hospital-acquired pneumonia - resolved MSSA bacteremia - resolved Serratia/staph aureus pneumonia - resolved C glabrata UTI - resolved Citrobacter UTI - resolved Serratia/MSSA sputum VAP - resolved Antibiotic History Cefazolin: 04/21-04/22, 05/15-05/16 Cefepime: 04/30-05/04, 05/27-06/03 Ceftrioxone 05/26-05/27 Erythromycin 06/16-06/18, 06/19 Gentamicin 04/21 vancomycin 04/30-05/04, 06/21-06/23 Zosyn 07/21 - 07/25 Azithromycin 07/21 - 07/25 Fluconazole 04/29 - ; 07/26 ceftolozane/ tazobactam 07/25 - 08/06 Colistin nebs q8h 08/06 - 08/11 (2) Pleural effusion ICD Codes: J90 - Pleural effusion, not elsewhere classified Status: Acute Plan: US chest 08/01 demonstrating moderate right pleural effusion Consulted IR for US guided thoracentesis, performed on 08/05 removing 1450 cc of clear yellow fluid - Pleural fluid culture from 08/05 with no growth after 72 hours Further plan as above -Repeat CXR 08/27 with no significant change (3) Acute CVA (cerebrovascular accident) ICD Codes: I63.9 - Cerebral infarction, unspecified Status: Chronic Plan: Neurologically stable, no improvement. Overall prognosis is poor. Persistent oxygen requirement See above note about meeting with Daughter on 07/23 and 07/26. Daughter still desires full code and aggressive care -Titrate oxygen via trach to maintain O2 saturation above 92% -Continue tube fees at 45ml/hr 24 hours per day thru peg Tube -Neurosurgery, neurology and palliative care have all been consulted in the past and agree with very poor prognosis with no meaningful neurologic recovery. History and imaging: Patient found minimally responsive with neurological deficits around 0820 04/24. Stat CT of head was ordered, which showed large left MCA infarct. Diffuse edema throughout the left MCA distribution, suggested completed infarct. This was discussed and was not a candidate for intracranial intervention. CT (04/30): Reduction in midline shift to 11mm. Unchanged large left MCA infarction. CT head (05/06) shows: Evolving large left-sided MCA territory infarct with minimally improved [id number] subfalcine shift. No intercurrent hemorrhage or other acute abnormality. Echocardiogram- The left ventricular systolic function is low normal with an estimated ejection fraction in the range of 50-55%. Mild concentric left ventricular hypertrophy. Normal left ventricular size. [id number] mitral valve regurgitation. Carotid Artery US- No hemodynamically significant carotid stenosis (4) UTI (urinary tract infection) ICD Codes: N39.0 - Urinary tract infection, site not specified Status: Resolved Plan: UCx on 07/15 positive for E coli Repeat UCx on 07/20 positive for C. Freundii UCx 07/24 grew only yeast; no bacteria - See above for antibiotic history and coverage (5) Sacral decubitus ulcer ICD Codes: L89.159 - Pressure ulcer of sacral region, unspecified stage Status: Chronic Plan: Patient with Stage II pressure injury over the coccyx -Wound care consult appreciated: 1. Please cleanse coccyx wound every 3 days and PRN for soiling. 2. Apply Calcium Alginate to open wound bed. 3. Secure with bordered gauze every 3 days and PRN for soiling. 4. Continue to turn patient every 2 hours or PRN for comfort. 5. Use one ultrasorb for moisture. Please use flat sheet for repositioning. Review of patient's ulcer today. Continue wound care recommendations. We'll need to further discuss with nursing staff about continued appropriate management of the ulcer. (6) Anemia ICD Codes: D64.9 - Anemia, unspecified Status: Chronic Plan: s/p 1u of PRBC on 05/28/17. Hgb stable Hemoccult negative on 05/29 - monitor H&H periodically (7) Urinary retention ICD Codes: R33.9 - Retention of urine, unspecified Status: Chronic Plan: - Cath last changed 07/15, pt afebrile - Urine output WNL (8) Type 2 diabetes mellitus ICD Codes: E11.9 - Type 2 diabetes mellitus without complications Status: Chronic Plan: -continue to monitor BSG -Continue Levemir 7 units q 12 hrs -Will continue to monitor -Glucerna for PEG tube feedings @ 45 ml/hr -Glucagon 1 mg per PRN protocol for hypoglycemia BS <70mg/dL History Admitted for DKA which has now resolved. Hemoglobin A1C 12.9 04/2017 (9) Hip fracture ICD Codes: S72.009A - Fracture of unspecified part of neck of unspecified femur , initial encounter for closed fracture Status: Resolved Plan: S/P left hip reduction and intramedullary nail fixation on 04-21-17 -c/w Calcium/Vitamin D (10) Hypertension ICD Codes: I10 - Essential (primary) hypertension Status: Chronic Plan: -Antihypertensives to keep SBP<160 -c/w clonidine 0.1mg Q6h PRN SBP >160 -Amlodipine 5mg daily -lisinopril 40mg Q12h po -Started metoprolol 12.5 mg every 12 09/05/17 Echocardiogram 04/24 - EF 50 to 55%. Mild concentric LVH. (11) Fluids, Electrolytes, and Nutrition Status: Acute Plan: Fluids: through PEG tube Electrolyte: Continue to monitor periodically, replete as needed Nutrition: continuous Glucerna tube feeds and free water, pump at 45mls/hr, tolerating feeds well, no residual. Protein 1 pack TID. Supplements: calcium TID and vit D3 QD DVT ppx: SCDs/heparin CVA ppx: aspirin 325 mg QD GI ppx: Lansoprazole 30mg qd via NG See the residents documentation for details. I saw and evaluated the patient regarding the nelson portions of this evaluation and agree with the residents findings and plans as written. Problem Qualifiers (1) Chronic respiratory failure: Qualified Codes: J96.11 - Chronic respiratory failure with hypoxia (2) UTI (urinary tract infection): Qualified Codes: N39.0 - Urinary tract infection, site not specified (3) Sacral decubitus ulcer: Qualified Codes: L89.152 - Pressure ulcer of sacral region, stage 2 (4) Type 2 diabetes mellitus: Qualified Codes: E11.9 - Type 2 diabetes mellitus without complications (5) Hip fracture: (6) Hypertension: Qualified Codes: I10 - Essential (primary) hypertension Jose R Soriano MD R1 Sep 06, 2017 10:04
--- NOTE | 2017-09-06 11:30 | HHI.PR ---
Addendum to Inpatient Note Addendum Reason: Additional Documentation Additional Information Off-service note: (added to off service note from 08/17/17) Hospital Course Summary 76 yo female with PMH of DM, HTN admitted for DKA and a left hip fracture. Her DKA corrected with medical therapy, and she was taken to the OR for ORIF. She tolerated the ORIF well. On POD#3 however, she developed a large acute CVA. She was evaluated by neurology and determined not to be a candidate for tPA. Due to the size of her stroke, her prognosis was evaluated as very poor. After her stroke she developed acute hypoxic respiratory failure and was transferred to the ICU for ventilator support. Her hospital course has been complicated with numerous healthcare-associated infections. See below for details of infection and antibiotic history. She also developed a pneumothorax while in the ICU and had a chest tube placed from 05/07 to 05/12. She was switched from intubation to T- tube on 05/15 and eventually developed spontaneous breathing without ventilatory support. However, she continues to require oxygenation through the T-tube due to hypoxia and likely will never be able to be weaned off the T-tube. Given her poor prognosis, palliative care had been consulted, however the daughter who is patient's POA opts for aggressive medical management based on patient's philosophy. Palliative now signed off but available as needed. Primary team having ongoing discussions with daughter about patient's status, prognosis, and care options. Most recently, Ms. Hein was found to have Pseudomonas pneumonia. ID and pulmonology consulted. Pt completed ceftolozane/ tazobactam 07/25 - 08/06 and Colistin nebs q8h 08/06 - 08/11. US guided thoracentesis performed per IR on 08/05 removing 1450 cc of clear yellow fluid. Pleural fluid culture from 08/05 with no growth after 72 hours. At this time, patient stable from pulmonary standpoint. ID signed off. Pulmonary following intermittently. Continuing with supportive care. Discharge planning: unclear timetable at this time. Will likely need SNF. Please touch base with case management and daughter. Update since 08/17/17: Patient's neurological status stable during care. Weekly labs without acute changes, not indicative of acute infection. Brown coating on patient's trach tube was noted, cultured on 08/25 and was shown to grow nearly mcdonald-resistant Pseudomonas. 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 They recommend to not send further sputum cultures unless there are acute respiratory problems and to not treat with antibiotics at this time. Case management continues to work on placing patient, currently cannot get benefits, continuing to work on placement solutions. Consultants ID Dr. Saleh signed off 08/06/[address] Rizo following intermittently, available as needed Palliative Care Dr. Rivera following intermittently, available as needed CCM Dr. Red signed off 07/11/[address] Malave signed off 05/14/[address] López signed off 05/22/17 Infection History Pseudomonas hospital-acquired pneumonia - active MSSA bacteremia - resolved Serratia/staph aureus pneumonia - resolved C glabrata UTI - resolved Citrobacter UTI - resolved Serratia/MSSA sputum VAP - resolved Antibiotic History Cefazolin: 04/21-04/22, 05/15-05/16 Cefepime: 04/30-05/04, 05/27-06/03 Ceftrioxone 05/26-05/27 Erythromycin 06/16-06/18, 06/19 Gentamicin 04/21 vancomycin 04/30-05/04, 06/21-06/23 Zosyn 07/21 - 07/25 Azithromycin 07/21 - 07/25 Fluconazole 04/29 - ; 07/26 ceftolozane/ tazobactam 07/25 - 08/06 Colistin nebs q8h 08/06 - 08/11 Jose R Soriano MD R1 Sep 06, 2017 11:30
[2017-09-06 18:42] LABS: BICARBONATE 32.6 MEQ/L (21.0-32.0); CALCIUM 9.5 MG/DL (8.5-10.1); CREATININE 0.56 MG/DL (0.50-1.00)
[2017-09-06 18:58] LABS: AUTOMATED NEUTROPHIL # 7.3 TH/MM3 (1.8-7.7); BASOPHIL # 0.1 TH/MM3 (0-0.2); BASOPHIL % 1.3 % (0.0-2.0); EOSINOPHIL # 0.5 TH/MM3 (0-0.4); EOSINOPHIL % 4.7 % (0.0-4.0); HEMATOCRIT 32.4 % (35.0-46.0); LYMPH % 21.6 % (9.0-44.0); LYMPHOCYTE # 2.4 TH/MM3 (1.0-4.8); MEAN CELL VOLUME 97.6 FL (80.0-100.0); MEAN CORPUSCULAR HEMOGLOBIN 33.1 PG (27.0-34.0); MEAN CORPUSCULAR HGB CONC 33.9 % (32.0-36.0); MEAN PLATELET VOLUME 10.9 FL (7.0-11.0); MONO % 7.5 % (0.0-8.0); MONOCYTE # 0.8 TH/MM3 (0-0.9); NEUT % 64.9 % (16.0-70.0); PLATELET COUNT 317 TH/MM3 (150-450); RED BLOOD COUNT 3.31 MIL/MM3 (4.00-5.30); RED CELL DISTRIBUTION WIDTH 15.5 % (11.6-17.2); WHITE BLOOD COUNT 11.3 TH/MM3 (4.0-11.0)
[2017-09-07] VITALS (8 sets, daily range): BP systolic 107–142; BP diastolic 54–70; PULSE 64–80; RESP 15–20; TEMP 95.7–97.8; O2SAT 92–100
[2017-09-07] MEDS: INSULIN ASPART SUPPLEMENTAL SCALE SQ SCH ×5 (00:28→23:54)
[2017-09-07] MEDS: HEPARIN SODIUM - SQ 10,000 UNITS/ML VIAL SQ SCH ×3 (05:50→21:45)
[2017-09-07] MEDS: ARTIFICIAL TEARS OPTH SOLN 15 ML BTL EACH EYE SCH ×3 (05:57→21:46)
[2017-09-07] MEDS: SODIUM CHLORIDE 0.9% FLUSH 5 ML FLUSH IV FLUSH SCH ×2 (09:00→21:00)
[2017-09-07] MEDS: BENEPROTEIN POWDER 1 PACK G-TUBE SCH ×3 (09:00→17:52)
[2017-09-07] MEDS: LISINOPRIL 20 MG TAB PO SCH ×2 (09:15→21:46)
[2017-09-07] MEDS: ASPIRIN 325 MG TAB DOBHOFF SCH (09:16)
[2017-09-07] MEDS: LANSOPRAZOLE SOLUTAB 30 MG TAB NG SCH (09:17)
[2017-09-07] MEDS: CHOLECALCIFEROL (VIT D3) 5000 UNIT CAP PO SCH (09:17)
[2017-09-07] MEDS: CALCIUM/VITAMIN D 250 MG/125 U TAB PO SCH ×3 (09:17→17:52)
[2017-09-07] MEDS: POLYETHYLENE GLYCOL 17 GM PKG PEG SCH (09:18)
[2017-09-07] MEDS: INSULIN DETEMIR 100 UNITS/ML VIAL SQ SCH ×2 (09:19→21:00)
--- NOTE | 2017-09-07 11:49 | HHI.FPPN ---
Subjective Remarks Patient seen and examined bedside this morning. No acute events overnight. Eyes were closed and she was sleeping in room. Patient did not open eyes stimulation. She was able to follow commands (moved her L foot on command, moved her L hand on command). She did not respond verbally at any point. She did not appear to be in respiratory distress. Objective Vitals Vital Signs Date Time Temp Pulse Resp B/P (MAP) Pulse Ox O2 Delivery O2 Flow Rate FiO2 09/07/17 09:31 99 Trach Collar 6.00 28 09/07/17 08:00 97.7 72 15 139/64 (89) 98 09/07/17 04:19 98 T-piece 6.00 28 09/07/17 00:00 97.8 80 20 142/67 (92) 97 09/06/17 20:00 96.9 77 20 133/61 (85) 98 09/06/17 19:00 Trach Collar 6.00 28 09/06/17 17:34 97 T-piece 6.00 28 09/06/17 17:34 97 T-piece 6.00 28 09/06/17 16:00 97.2 62 15 127/62 (83) 97 09/06/17 12:22 100 T-piece 6.00 28 09/06/17 12:00 97.6 74 17 142/68 (92) 98 I/O 09/06/17 09/06/17 09/06/17 09/07/17 09/07/17 09/07/17 07:00 15:00 23:00 07:00 15:00 23:00 Intake Total 495 ml 546 ml 1042 ml Output Total 1300 ml 750 ml 700 ml Balance -805 ml -204 ml 342 ml Intake Oral 0 ml 0 ml Tube Feeding 495 ml 546 ml 1042 ml Output Urine Total 1300 ml 750 ml 700 ml # Bowel Movements 4 1 Result Diagram: 09/06/17 1725 09/06/17 1725 Objective Remarks GEN: Appears comfortable. NAD. Trach and PEG. Lists to the left. HEAD: Eyes were closed throughout exam.. LUNGS: Decreased sounds in b/l bases, breathing spontaneously via trach collar ( 6L; O2 sat 99% FiO2 28%). CARDIOVASCULAR: NRRR, normal S1/S2, no murmur. Grossly normal peripheral perfusion GI/ABD: Soft, non-distended. NEURO: Flaccid paralysis on the right side. Patient moves left hand and left leg on command MUSC: No calf asymmetry appreciated SKIN: Sacrum inspected /; previously sacral pressure ulcer extended from anus to coccyx; stage II, unchanged EXTREMITIES: Trace edema bilaterally Other: urinary catheter in place. Procedures ORIF 04/21/17 Intubation 04/30/17 Chest tube placement 05/07/17, removed 05/12/17 Trach placement 05/15/17 PEG tube placement 05/16/17 A/P Assessment and Plan 76 y/o female with HTN, DM admitted for DKA and hip fracture s/p large CVA after ORIF she is currently stable with her current treatment but has had no meaningful functional recovery and do not anticipate any further neurologic recovery from here on. Dr. Harper, Dr. Tran and case management had a long discussion with the daughter on 07/23 and the patient's daughter is still hopeful for full recovery for her mom in spite of her mom's state of health since her CVA. DW the daughter that it is our belief based on her clinical picture that she will not make any sort of meaningful recovery and will remain on the trach and PEG for the rest of her life. DW the daughter due to her status that the patient will likely continue to decline and continue to acquire infections associated with this type of clinical picture including UTI, PNA, and sepsis. DW the daughter to consider the QOL that her mother would have wanted. We recommend that this patient receive Hospice services as we would not anticipate her living longer than 6 months. The daughter does not want to consider this at this time and she is the sole decision maker for this patient. In that case, we will continue to treat the patient aggressively as issues arise and honor the families wishes. A one-hour long family meeting was held (07/26) with patient's daughter Trice, Dr. Harper, Dr. Watts and patient's nurse to discuss patient's poor prognosis. We felt it was important to listen to daughter's perspective and address any questions or concerns she has about her mother's care. Patient goals of care were also discussed. Daughter still wants aggressive treatment. Daughter was informed that from our medical standpoint we do not anticipated any meaningful recovery from her mother's current baseline. Neither do we anticipate for mother to be able to get off PEG tube feeds and trach. However, we will continue to honor daughter's wishes and provide aggressive medical care. ID and pulmonology are actively following. Patient is currently being treated for MDR pseudomonas pna and pulmonology recommended bronchoscopy. Risk and benefits of the procedure were explained and discussed with daughter. The option for her mother not to have the bronchoscopy and to instead continue treatment with antibiotics was also discussed. She is currently unsure about the procedure. She was advised to take time to think about her decision keeping in mind what her mother's wishes would be. 08/02- Daughter at bedside. I had a long discussion with the daughter. Discussed with her about patient's unchanged status. She agreed to thoracentesis done on 08/05. She still wants aggressive care for her mother. 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 Rizo), recommended bronchoscopy procedure, daughter refused -Aerosol nebs -Supplement O2 -TF -Pseudomonas (mcdonald-resistant) on sputum culture 08/25 Impression: No respiratory symptoms or leukocytosis to suggest pneumonia at this time -ID suggest likely colonization at this time, will hold off on cultures unless symptomatic or acute changes present. No antibiotics at this time. -Chest x-ray with no significant change Impression/History: At this point, respiratory failure is chronic on T-tube Hospital Acquired PNA on 07/21 CXR 08/01 demonstrating bilateral airspace disease and effusions, R>L US chest wall 08/02- moderate right pleural effusion. - Consulted IR for US guided thoracentesis, performed on 08/05 removing 1450 cc of clear yellow fluid - Pleural fluid culture from 08/05 with no growth after 72 hours Legionella and S pneumonia urine antigen negative Infection History Pseudomonas hospital-acquired pneumonia - resolved MSSA bacteremia - resolved Serratia/staph aureus pneumonia - resolved C glabrata UTI - resolved Citrobacter UTI - resolved Serratia/MSSA sputum VAP - resolved Antibiotic History Cefazolin: 04/21-04/22, 05/15-05/16 Cefepime: 04/30-05/04, 05/27-06/03 Ceftrioxone 05/26-05/27 Erythromycin 06/16-06/18, 06/19 Gentamicin 04/21 vancomycin 04/30-05/04, 06/21-06/23 Zosyn 07/21 - 07/25 Azithromycin 07/21 - 07/25 Fluconazole 04/29 - ; 07/26 ceftolozane/ tazobactam 07/25 - 08/06 Colistin nebs q8h 08/06 - 08/11 (2) Pleural effusion ICD Codes: J90 - Pleural effusion, not elsewhere classified Status: Acute Plan: US chest 08/01 demonstrating moderate right pleural effusion Consulted IR for US guided thoracentesis, performed on 08/05 removing 1450 cc of clear yellow fluid - Pleural fluid culture from 08/05 with no growth after 72 hours Further plan as above -Repeat CXR 08/27 with no significant change (3) Acute CVA (cerebrovascular accident) ICD Codes: I63.9 - Cerebral infarction, unspecified Status: Chronic Plan: Neurologically stable, no improvement. Overall prognosis is poor. Persistent oxygen requirement See above note about meeting with Daughter on 07/23 and 07/26. Daughter still desires full code and aggressive care -Titrate oxygen via trach to maintain O2 saturation above 92% -Continue tube fees at 45ml/hr 24 hours per day thru peg Tube -Neurosurgery, neurology and palliative care have all been consulted in the past and agree with very poor prognosis with no meaningful neurologic recovery. History and imaging: Patient found minimally responsive with neurological deficits around 0820 04/24. Stat CT of head was ordered, which showed large left MCA infarct. Diffuse edema throughout the left MCA distribution, suggested completed infarct. This was discussed and was not a candidate for intracranial intervention. CT (04/30): Reduction in midline shift to 11mm. Unchanged large left MCA infarction. CT head (05/06) shows: Evolving large left-sided MCA territory infarct with minimally improved [id number] subfalcine shift. No intercurrent hemorrhage or other acute abnormality. Echocardiogram- The left ventricular systolic function is low normal with an estimated ejection fraction in the range of 50-55%. Mild concentric left ventricular hypertrophy. Normal left ventricular size. [id number] mitral valve regurgitation. Carotid Artery US- No hemodynamically significant carotid stenosis (4) UTI (urinary tract infection) ICD Codes: N39.0 - Urinary tract infection, site not specified Status: Resolved Plan: UCx on 07/15 positive for E coli Repeat UCx on 07/20 positive for C. Freundii UCx 07/24 grew only yeast; no bacteria - See above for antibiotic history and coverage (5) Sacral decubitus ulcer ICD Codes: L89.159 - Pressure ulcer of sacral region, unspecified stage Status: Chronic Plan: Patient with Stage II pressure injury over the coccyx -Wound care consult appreciated: 1. Please cleanse coccyx wound every 3 days and PRN for soiling. 2. Apply Calcium Alginate to open wound bed. 3. Secure with bordered gauze every 3 days and PRN for soiling. 4. Continue to turn patient every 2 hours or PRN for comfort. 5. Use one ultrasorb for moisture. Please use flat sheet for repositioning. Review of patient's ulcer today. Continue wound care recommendations. We'll need to further discuss with nursing staff about continued appropriate management of the ulcer. (6) Anemia ICD Codes: D64.9 - Anemia, unspecified Status: Chronic Plan: s/p 1u of PRBC on 05/28/17. Hgb stable Hemoccult negative on 05/29 - monitor H&H periodically (7) Urinary retention ICD Codes: R33.9 - Retention of urine, unspecified Status: Chronic Plan: - Cath last changed 07/15, pt afebrile - Urine output WNL (8) Type 2 diabetes mellitus ICD Codes: E11.9 - Type 2 diabetes mellitus without complications Status: Chronic Plan: -continue to monitor BSG -Continue Levemir 7 units q 12 hrs -Will continue to monitor -Glucerna for PEG tube feedings @ 45 ml/hr -Glucagon 1 mg per PRN protocol for hypoglycemia BS <70mg/dL History Admitted for DKA which has now resolved. Hemoglobin A1C 12.9 04/2017 (9) Hip fracture ICD Codes: S72.009A - Fracture of unspecified part of neck of unspecified femur , initial encounter for closed fracture Status: Resolved Plan: S/P left hip reduction and intramedullary nail fixation on 04-21-17 -c/w Calcium/Vitamin D (10) Hypertension ICD Codes: I10 - Essential (primary) hypertension Status: Chronic Plan: -Antihypertensives to keep SBP<160 -c/w clonidine 0.1mg Q6h PRN SBP >160 -Amlodipine 5mg daily -lisinopril 40mg Q12h po -Started metoprolol 12.5 mg every 12 09/05/17 Echocardiogram 04/24 - EF 50 to 55%. Mild concentric LVH. (11) Fluids, Electrolytes, and Nutrition Status: Acute Plan: Fluids: through PEG tube Electrolyte: Continue to monitor periodically, replete as needed Nutrition: continuous Glucerna tube feeds and free water, pump at 45mls/hr, tolerating feeds well, no residual. Protein 1 pack TID. Supplements: calcium TID and vit D3 QD DVT ppx: SCDs/heparin CVA ppx: aspirin 325 mg QD GI ppx: Lansoprazole 30mg qd via NG See the residents documentation for details. I saw and evaluated the patient regarding the nelson portions of this evaluation and agree with the residents findings and plans as written. Problem Qualifiers (1) Chronic respiratory failure: Qualified Codes: J96.11 - Chronic respiratory failure with hypoxia (2) UTI (urinary tract infection): Qualified Codes: N39.0 - Urinary tract infection, site not specified (3) Sacral decubitus ulcer: Qualified Codes: L89.152 - Pressure ulcer of sacral region, stage 2 (4) Type 2 diabetes mellitus: Qualified Codes: E11.9 - Type 2 diabetes mellitus without complications (5) Hip fracture: (6) Hypertension: Qualified Codes: I10 - Essential (primary) hypertension Tova Ortiz MD R2 Sep 07, 2017 11:49
[2017-09-08] VITALS (7 sets, daily range): BP systolic 101–154; BP diastolic 64–71; PULSE 62–89; RESP 16–22; TEMP 95.7–98.7; O2SAT 93–100
[2017-09-08] MEDS: INSULIN ASPART SUPPLEMENTAL SCALE SQ SCH ×4 (06:00→21:55)
[2017-09-08] MEDS: ARTIFICIAL TEARS OPTH SOLN 15 ML BTL EACH EYE SCH ×3 (06:00→21:46)
[2017-09-08] MEDS: HEPARIN SODIUM - SQ 10,000 UNITS/ML VIAL SQ SCH ×3 (06:03→21:44)
[2017-09-08] MEDS: POLYETHYLENE GLYCOL 17 GM PKG PEG SCH (08:44)
[2017-09-08] MEDS: ASPIRIN 325 MG TAB DOBHOFF SCH (08:50)
[2017-09-08] MEDS: LANSOPRAZOLE SOLUTAB 30 MG TAB NG SCH (08:50)
[2017-09-08] MEDS: LISINOPRIL 20 MG TAB PO SCH ×2 (08:50→21:44)
[2017-09-08] MEDS: CALCIUM/VITAMIN D 250 MG/125 U TAB PO SCH ×3 (08:50→17:17)
[2017-09-08] MEDS: CHOLECALCIFEROL (VIT D3) 5000 UNIT CAP PO SCH (08:50)
[2017-09-08] MEDS: INSULIN DETEMIR 100 UNITS/ML VIAL SQ SCH ×2 (08:51→21:45)
[2017-09-08] MEDS: BENEPROTEIN POWDER 1 PACK G-TUBE SCH ×3 (08:51→17:17)
[2017-09-08] MEDS: SODIUM CHLORIDE 0.9% FLUSH 5 ML FLUSH IV FLUSH SCH ×2 (08:51→21:44)
[2017-09-08 11:17] LABS: BACTERIA, URINE MANY /hpf; BILIRUBIN, URINE NEG (NEG); BLOOD, URINE MOD (NEG); GLUCOSE,URINE NEG (NEG); KETONE, URINE NEG (NEG); NITRITE,URINE POS (NEG); PH, URINE 7.5 (5.0-8.5); URINE COLOR YELLOW (YELLW/STRAW); URINE LEUKOCYTE ESTERASE LARGE (NEG); WHITE BLOOD CELL CLUMPS MANY
--- NOTE | 2017-09-08 14:11 | HHI.FPPN ---
Subjective Remarks Patient seen and examined at bedside. No acute events overnight. Pt laying in bed with eyes closed. She did not respond to commands. Nurse informed resident team that pt's urine in moser bag appeared cloudy. No acute change in status. Objective Vitals Vital Signs Date Time Temp Pulse Resp B/P (MAP) Pulse Ox O2 Delivery O2 Flow Rate FiO2 09/08/17 12:00 98.7 73 20 124/68 (86) 97 09/08/17 11:57 98 T-piece 5.00 28 09/08/17 11:57 98 T-piece 5.00 28 09/08/17 08:00 97.6 89 22 139/64 (89) 96 09/08/17 04:30 93 T-piece 28 09/08/17 00:00 95.7 62 16 101/65 (77) 93 09/07/17 20:52 100 T-piece 28 09/07/17 20:52 100 T-piece 28 09/07/17 20:00 95.7 64 15 107/54 (71) 92 09/07/17 16:00 96.9 71 15 139/70 (93) 100 I/O 09/07/17 09/07/17 09/07/17 09/08/17 09/08/17 09/08/17 07:00 15:00 23:00 07:00 15:00 23:00 Intake Total 1042 ml 515 ml 585 ml 0 ml Output Total 700 ml 700 ml 950 ml Balance 342 ml -185 ml -365 ml 0 ml Intake Oral 0 ml 0 ml 0 ml Tube Feeding 1042 ml 515 ml 385 ml Other 200 ml Output Urine Total 700 ml 700 ml 950 ml # Bowel Movements 1 2 Result Diagram: 09/06/17 1725 09/06/17 172 Objective Remarks GEN: Appears comfortable. NAD. Trach and PEG. . HEAD: Eyes were closed throughout exam.. LUNGS: Decreased sounds in b/l bases, breathing spontaneously via trach collar CARDIOVASCULAR: NRRR, normal S1/S2, no murmur. Grossly normal peripheral perfusion GI/ABD: Soft, non-distended. NEURO: Flaccid paralysis on the right side. Patient moves left hand and left leg on command MUSC: No calf asymmetry appreciated SKIN: Sacrum inspected 1/3; previously sacral pressure ulcer extended from anus to coccyx; stage II, unchanged EXTREMITIES: Trace edema bilaterally Other: urinary catheter in place. Procedures ORIF 04/21/17 Intubation 04/30/17 Chest tube placement 05/07/17, removed 05/12/17 Trach placement 05/15/17 PEG tube placement 05/16/17 A/P Assessment and Plan 76 y/o female with HTN, DM admitted for DKA and hip fracture s/p large CVA after ORIF she is currently stable with her current treatment but has had no meaningful functional recovery and do not anticipate any further neurologic recovery from here on. Dr. Harper, Dr. Tran and case management had a long discussion with the daughter on 07/23 and the patient's daughter is still hopeful for full recovery for her mom in spite of her mom's state of health since her CVA. DW the daughter that it is our belief based on her clinical picture that she will not make any sort of meaningful recovery and will remain on the trach and PEG for the rest of her life. DW the daughter due to her status that the patient will likely continue to decline and continue to acquire infections associated with this type of clinical picture including UTI, PNA, and sepsis. DW the daughter to consider the QOL that her mother would have wanted. We recommend that this patient receive Hospice services as we would not anticipate her living longer than 6 months. The daughter does not want to consider this at this time and she is the sole decision maker for this patient. In that case, we will continue to treat the patient aggressively as issues arise and honor the families wishes. A one-hour long family meeting was held (07/26) with patient's daughter Trice, Dr. Harper, Dr. Watts and patient's nurse to discuss patient's poor prognosis. We felt it was important to listen to daughter's perspective and address any questions or concerns she has about her mother's care. Patient goals of care were also discussed. Daughter still wants aggressive treatment. Daughter was informed that from our medical standpoint we do not anticipated any meaningful recovery from her mother's current baseline. Neither do we anticipate for mother to be able to get off PEG tube feeds and trach. However, we will continue to honor daughter's wishes and provide aggressive medical care. ID and pulmonology are actively following. Patient is currently being treated for MDR pseudomonas pna and pulmonology recommended bronchoscopy. Risk and benefits of the procedure were explained and discussed with daughter. The option for her mother not to have the bronchoscopy and to instead continue treatment with antibiotics was also discussed. She is currently unsure about the procedure. She was advised to take time to think about her decision keeping in mind what her mother's wishes would be. 08/02- Daughter at bedside. I had a long discussion with the daughter. Discussed with her about patient's unchanged status. She agreed to thoracentesis done on 08/05. She still wants aggressive care for her mother. 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 Rizo), recommended bronchoscopy procedure, daughter refused -Aerosol nebs -Supplement O2 -TF -Pseudomonas (mcdonald-resistant) on sputum culture 08/25 Impression: No respiratory symptoms or leukocytosis to suggest pneumonia at this time -ID suggest likely colonization at this time, will hold off on cultures unless symptomatic or acute changes present. No antibiotics at this time. -Chest x-ray with no significant change Impression/History: At this point, respiratory failure is chronic on T-tube Hospital Acquired PNA on 07/21 CXR 08/01 demonstrating bilateral airspace disease and effusions, R>L US chest wall 08/02- moderate right pleural effusion. - Consulted IR for US guided thoracentesis, performed on 08/05 removing 1450 cc of clear yellow fluid - Pleural fluid culture from 08/05 with no growth after 72 hours Legionella and S pneumonia urine antigen negative Infection History Pseudomonas hospital-acquired pneumonia - resolved MSSA bacteremia - resolved Serratia/staph aureus pneumonia - resolved C glabrata UTI - resolved Citrobacter UTI - resolved Serratia/MSSA sputum VAP - resolved Antibiotic History Cefazolin: 04/21-04/22, 05/15-05/16 Cefepime: 04/30-05/04, 05/27-06/03 Ceftrioxone 05/26-05/27 Erythromycin 06/16-06/18, 06/19 Gentamicin 04/21 vancomycin 04/30-05/04, 06/21-06/23 Zosyn 07/21 - 07/25 Azithromycin 07/21 - 07/25 Fluconazole 04/29 - ; 07/26 ceftolozane/ tazobactam 07/25 - 08/06 Colistin nebs q8h 08/06 - 08/11 (2) Pleural effusion ICD Codes: J90 - Pleural effusion, not elsewhere classified Status: Acute Plan: US chest 08/01 demonstrating moderate right pleural effusion Consulted IR for US guided thoracentesis, performed on 08/05 removing 1450 cc of clear yellow fluid - Pleural fluid culture from 08/05 with no growth after 72 hours Further plan as above -Repeat CXR 08/27 with no significant change (3) Acute CVA (cerebrovascular accident) ICD Codes: I63.9 - Cerebral infarction, unspecified Status: Chronic Plan: Neurologically stable, no improvement. Overall prognosis is poor. Persistent oxygen requirement See above note about meeting with Daughter on 07/23 and 07/26. Daughter still desires full code and aggressive care -Titrate oxygen via trach to maintain O2 saturation above 92% -Continue tube fees at 45ml/hr 24 hours per day thru peg Tube -Neurosurgery, neurology and palliative care have all been consulted in the past and agree with very poor prognosis with no meaningful neurologic recovery. History and imaging: Patient found minimally responsive with neurological deficits around 0820 04/24. Stat CT of head was ordered, which showed large left MCA infarct. Diffuse edema throughout the left MCA distribution, suggested completed infarct. This was discussed and was not a candidate for intracranial intervention. CT (04/30): Reduction in midline shift to 11mm. Unchanged large left MCA infarction. CT head (05/06) shows: Evolving large left-sided MCA territory infarct with minimally improved xoyf-gu-[id number] subfalcine shift. No intercurrent hemorrhage or other acute abnormality. Echocardiogram- The left ventricular systolic function is low normal with an estimated ejection fraction in the range of 50-55%. Mild concentric left ventricular hypertrophy. Normal left ventricular size. [id number]-[id number]-[id number] mitral valve regurgitation. Carotid Artery US- No hemodynamically significant carotid stenosis (4) UTI (urinary tract infection) ICD Codes: N39.0 - Urinary tract infection, site not specified Status: Resolved Plan: UCx on 07/15 positive for E coli Repeat UCx on 07/20 positive for C. Freundii UCx 07/24 grew only yeast; no bacteria Cloudy urine in moser bag noted by nurse: -UA order placed, + UTI, f/u Ucx -moser replacement ordered -repeat UA from new moser to assess possible UTI - See above for antibiotic history and coverage (5) Sacral decubitus ulcer ICD Codes: L89.159 - Pressure ulcer of sacral region, unspecified stage Status: Chronic Plan: Patient with Stage II pressure injury over the coccyx -Wound care consult appreciated: 1. Please cleanse coccyx wound every 3 days and PRN for soiling. 2. Apply Calcium Alginate to open wound bed. 3. Secure with bordered gauze every 3 days and PRN for soiling. 4. Continue to turn patient every 2 hours or PRN for comfort. 5. Use one ultrasorb for moisture. Please use flat sheet for repositioning. Review of patient's ulcer today. Continue wound care recommendations. We'll need to further discuss with nursing staff about continued appropriate management of the ulcer. (6) Anemia ICD Codes: D64.9 - Anemia, unspecified Status: Chronic Plan: s/p 1u of PRBC on 05/28/17. Hgb stable Hemoccult negative on 05/29 - monitor H&H periodically (7) Urinary retention ICD Codes: R33.9 - Retention of urine, unspecified Status: Chronic Plan: - Cath last changed 07/15, pt afebrile - Urine output WNL (8) Type 2 diabetes mellitus ICD Codes: E11.9 - Type 2 diabetes mellitus without complications Status: Chronic Plan: -continue to monitor BSG -Continue Levemir 7 units q 12 hrs -Will continue to monitor -Glucerna for PEG tube feedings @ 45 ml/hr -Glucagon 1 mg per PRN protocol for hypoglycemia BS <70mg/dL History Admitted for DKA which has now resolved. Hemoglobin A1C 12.9 04/2017 (9) Hip fracture ICD Codes: S72.009A - Fracture of unspecified part of neck of unspecified femur , initial encounter for closed fracture Status: Resolved Plan: S/P left hip reduction and intramedullary nail fixation on 04-21-17 -c/w Calcium/Vitamin D (10) Hypertension ICD Codes: I10 - Essential (primary) hypertension Status: Chronic Plan: -Antihypertensives to keep SBP<160 -c/w clonidine 0.1mg Q6h PRN SBP >160 -Amlodipine 5mg daily -lisinopril 40mg Q12h po -Started metoprolol 12.5 mg every 12 09/05/17 Echocardiogram 04/24 - EF 50 to 55%. Mild concentric LVH. (11) Fluids, Electrolytes, and Nutrition Status: Acute Plan: Fluids: through PEG tube Electrolyte: Continue to monitor periodically, replete as needed Nutrition: continuous Glucerna tube feeds and free water, pump at 45mls/hr, tolerating feeds well, no residual. Protein 1 pack TID. Supplements: calcium TID and vit D3 QD DVT ppx: SCDs/heparin CVA ppx: aspirin 325 mg QD GI ppx: Lansoprazole 30mg qd via NG See the residents documentation for details. I saw and evaluated the patient regarding the nelson portions of this evaluation and agree with the residents findings and plans as written. Problem Qualifiers (1) Chronic respiratory failure: Qualified Codes: J96.11 - Chronic respiratory failure with hypoxia (2) UTI (urinary tract infection): Qualified Codes: N39.0 - Urinary tract infection, site not specified (3) Sacral decubitus ulcer: Qualified Codes: L89.152 - Pressure ulcer of sacral region, stage 2 (4) Type 2 diabetes mellitus: Qualified Codes: E11.9 - Type 2 diabetes mellitus without complications (5) Hip fracture: (6) Hypertension: Qualified Codes: I10 - Essential (primary) hypertension Chito Damon MD, R1 Sep 08, 2017 14:11
--- NOTE | 2017-09-08 20:01 | HHI.PR ---
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 opens eyes, No new complaint no fever trach got pulled out, was reinserted Small amount of trach site bleed Objective Vital Signs Vital Signs Date Time Temp Pulse Resp B/P (MAP) Pulse Ox O2 Delivery O2 Flow Rate FiO2 09/08/17 16:00 97.6 78 20 137/65 (89) 99 09/08/17 12:00 98.7 73 20 124/68 (86) 97 09/08/17 11:57 98 T-piece 5.00 28 09/08/17 11:57 98 T-piece 5.00 28 09/08/17 08:00 97.6 89 22 139/64 (89) 96 09/08/17 04:30 93 T-piece 28 09/08/17 00:00 95.7 62 16 101/65 (77) 93 09/07/17 20:52 100 T-piece 28 09/07/17 20:52 100 T-piece 28 I/O 09/07/17 09/07/17 09/07/17 09/08/17 09/08/17 09/08/17 07:00 15:00 23:00 07:00 15:00 23:00 Intake Total 1042 ml 515 ml 585 ml 0 ml 0 ml Output Total 700 ml 700 ml 950 ml 1400 ml Balance 342 ml -185 ml -365 ml 0 ml -1400 ml Intake Oral 0 ml 0 ml 0 ml 0 ml Tube Feeding 1042 ml 515 ml 385 ml Other 200 ml Output Urine Total 700 ml 700 ml 950 ml 1400 ml # Bowel Movements 1 2 5 Result Diagram: 09/06/17 1725 09/06/17 172 Objective Remarks GENERAL: Elderly female,NAD SKIN: Warm and dry. HEAD: Normocephalic. EYES: No scleral icterus. No injection or drainage. NECK: Supple, trachea midline. No JVD or lymphadenopathy. CARDIOVASCULAR: Regular rate and rhythm without murmurs, gallops, or rubs. RESPIRATORY: Breath sounds equal bilaterally. No accessory muscle use. GASTROINTESTINAL: Abdomen soft, non-tender, nondistended. MUSCULOSKELETAL: No cyanosis, or edema. BACK: Nontender without obvious deformity. No CVA tenderness. A/P Assessment and Plan RF,S/P Trach CVA Pneumonia Pleural effusion Pseudomonas Tracheobronchitis, ? colonisation PLAN: Cont trach collar Aerosol nebs Supplement 02 Trach care TF Chris Rizo MD Sep 08, 2017 20:01
[2017-09-08 22:31] LABS: ALBUMIN 2.5 GM/DL (3.4-5.0); ALKALINE PHOSPHATASE 183 U/L (45-117); ALT (GPT) 33 U/L (10-53); AST (GOT) 23 U/L (15-37); BICARBONATE 32.9 MEQ/L (21.0-32.0); BLOOD UREA NITROGEN 51 MG/DL (7-18); CALCIUM 9.5 MG/DL (8.5-10.1); CHLORIDE 102 MEQ/L (98-107); CREATININE 0.46 MG/DL (0.50-1.00); GLOMERULAR FILTRATION RATE 132 ML/MIN (>89); GLUCOSE,RANDOM 176 MG/DL (74-106); SODIUM (NA) 141 MEQ/L (136-145); TOTAL BILIRUBIN ADULT 0.2 MG/DL (0.2-1.0); TOTAL PROTEIN 6.9 GM/DL (6.4-8.2)
[2017-09-08 23:13] LABS: AUTOMATED NEUTROPHIL # 7.1 TH/MM3 (1.8-7.7); BASOPHIL # 0.1 TH/MM3 (0-0.2); BASOPHIL % 1.3 % (0.0-2.0); EOSINOPHIL # 0.5 TH/MM3 (0-0.4); EOSINOPHIL % 5.1 % (0.0-4.0); HEMATOCRIT 32.5 % (35.0-46.0); HEMOGLOBIN 11.2 GM/DL (11.6-15.3); LYMPH % 18.4 % (9.0-44.0); LYMPHOCYTE # 1.9 TH/MM3 (1.0-4.8); MEAN CELL VOLUME 97.4 FL (80.0-100.0); MEAN CORPUSCULAR HEMOGLOBIN 33.7 PG (27.0-34.0); MEAN CORPUSCULAR HGB CONC 34.6 % (32.0-36.0); MEAN PLATELET VOLUME 10.5 FL (7.0-11.0); MONOCYTE # 0.7 TH/MM3 (0-0.9); NEUT % 68.2 % (16.0-70.0); PLATELET COUNT 352 TH/MM3 (150-450); RED BLOOD COUNT 3.33 MIL/MM3 (4.00-5.30); RED CELL DISTRIBUTION WIDTH 15.3 % (11.6-17.2); WHITE BLOOD COUNT 10.5 TH/MM3 (4.0-11.0)
[2017-09-09] VITALS (7 sets, daily range): BP systolic 132–175; BP diastolic 69–81; PULSE 20–80; RESP 18–20; TEMP 96–98.7; O2SAT 95–100
[2017-09-09] MEDS: ARTIFICIAL TEARS OPTH SOLN 15 ML BTL EACH EYE SCH ×3 (05:35→23:07)
[2017-09-09] MEDS: HEPARIN SODIUM - SQ 10,000 UNITS/ML VIAL SQ SCH ×3 (05:36→23:06)
[2017-09-09] MEDS: INSULIN ASPART SUPPLEMENTAL SCALE SQ SCH ×3 (05:37→17:20)
[2017-09-09 06:34] LABS: BACTERIA, URINE MOD /hpf; BILIRUBIN, URINE NEG (NEG); BLOOD, URINE SMALL (NEG); GLUCOSE,URINE NEG (NEG); KETONE, URINE NEG (NEG); MUCUS URINE FEW /lpf (OCC); NITRITE,URINE NEG (NEG); SQUAMOUS EPITHELIAL CELL URINE 2 /hpf (0-5); URINE COLOR YELLOW (YELLW/STRAW); URINE LEUKOCYTE ESTERASE LARGE (NEG); WHITE BLOOD CELL CLUMPS MANY
[2017-09-09 07:42] LABS: AUTOMATED NEUTROPHIL # 7.2 TH/MM3 (1.8-7.7); BASOPHIL # 0.1 TH/MM3 (0-0.2); BASOPHIL % 1.2 % (0.0-2.0); EOSINOPHIL # 0.6 TH/MM3 (0-0.4); EOSINOPHIL % 6.1 % (0.0-4.0); HEMATOCRIT 34.3 % (35.0-46.0); HEMOGLOBIN 11.8 GM/DL (11.6-15.3); LYMPH % 19.4 % (9.0-44.0); MEAN CELL VOLUME 97.7 FL (80.0-100.0); MEAN CORPUSCULAR HEMOGLOBIN 33.5 PG (27.0-34.0); MEAN CORPUSCULAR HGB CONC 34.3 % (32.0-36.0); MEAN PLATELET VOLUME 10.2 FL (7.0-11.0); MONO % 5.3 % (0.0-8.0); MONOCYTE # 0.6 TH/MM3 (0-0.9); PLATELET COUNT 300 TH/MM3 (150-450); RED BLOOD COUNT 3.51 MIL/MM3 (4.00-5.30); RED CELL DISTRIBUTION WIDTH 15.2 % (11.6-17.2); WHITE BLOOD COUNT 10.5 TH/MM3 (4.0-11.0)
[2017-09-09 08:03] LABS: ALBUMIN 2.6 GM/DL (3.4-5.0); ALT (GPT) 33 U/L (10-53); AST (GOT) 23 U/L (15-37); BICARBONATE 30.8 MEQ/L (21.0-32.0); BLOOD UREA NITROGEN 45 MG/DL (7-18); CALCIUM 9.5 MG/DL (8.5-10.1); CHLORIDE 103 MEQ/L (98-107); CREATININE 0.45 MG/DL (0.50-1.00); GLOMERULAR FILTRATION RATE 136 ML/MIN (>89); GLUCOSE,RANDOM 201 MG/DL (74-106); SODIUM (NA) 140 MEQ/L (136-145)
[2017-09-09 08:06] LABS: ALKALINE PHOSPHATASE 195 U/L (45-117); TOTAL BILIRUBIN ADULT 0.2 MG/DL (0.2-1.0); TOTAL PROTEIN 7.4 GM/DL (6.4-8.2)
[2017-09-09] MEDS: LISINOPRIL 20 MG TAB PO SCH ×2 (08:21→23:05)
[2017-09-09] MEDS: CHOLECALCIFEROL (VIT D3) 5000 UNIT CAP PO SCH (08:21)
[2017-09-09] MEDS: ASPIRIN 325 MG TAB DOBHOFF SCH (08:22)
[2017-09-09] MEDS: LANSOPRAZOLE SOLUTAB 30 MG TAB NG SCH (08:22)
[2017-09-09] MEDS: CALCIUM/VITAMIN D 250 MG/125 U TAB PO SCH ×3 (08:22→17:20)
[2017-09-09] MEDS: POLYETHYLENE GLYCOL 17 GM PKG PEG SCH (08:23)
[2017-09-09] MEDS: BENEPROTEIN POWDER 1 PACK G-TUBE SCH ×3 (08:23→17:20)
[2017-09-09] MEDS: SODIUM CHLORIDE 0.9% FLUSH 5 ML FLUSH IV FLUSH SCH ×2 (08:23→21:00)
[2017-09-09] MEDS: INSULIN DETEMIR 100 UNITS/ML VIAL SQ SCH ×2 (08:24→23:05)
--- NOTE | 2017-09-09 15:08 | HHI.FPPN ---
Subjective Remarks Patient seen and examined at bedside. No acute events overnight. Pt laying in bed with eyes open. She did not respond to commands. Urine Moser catheter replaced yesterday after nurse noted that her urine was cloudy. Urine in Moser bag today appears clear. No acute status change. Objective Vitals Vital Signs Date Time Temp Pulse Resp B/P (MAP) Pulse Ox O2 Delivery O2 Flow Rate FiO2 09/09/17 12:00 98.7 80 20 175/81 (112) 100 09/09/17 08:38 97 T-piece 28 09/09/17 08:00 96.9 77 20 146/69 (94) 100 09/09/17 00:59 95 T-piece 6.00 28 09/09/17 00:00 96.0 20 20 151/72 (98) 98 09/08/17 20:00 95.9 75 20 154/71 (98) 100 09/08/17 16:00 97.6 78 20 137/65 (89) 99 I/O 09/08/17 09/08/17 09/08/17 09/09/17 09/09/17 09/09/17 07:00 15:00 23:00 07:00 15:00 23:00 Intake Total 585 ml 0 ml 230 ml 380 ml 0 ml Output Total 950 ml 1400 ml 1000 ml Balance -365 ml 0 ml -1170 ml -620 ml 0 ml Intake Oral 0 ml 0 ml 0 ml 0 ml Tube Feeding 385 ml 200 ml 350 ml Other 200 ml 30 ml 30 ml Output Urine Total 950 ml 1400 ml 1000 ml # Bowel Movements 5 Result Diagram: 09/09/17 0640 09/09/17 0640 Objective Remarks GEN: Appears comfortable. NAD. Trach and PEG. Eyes open. HEAD: Eyes were closed throughout exam.. LUNGS: lung sounds clear BL, breathing spontaneously via trach collar CARDIOVASCULAR: NRRR, normal S1/S2, no murmur. Grossly normal peripheral perfusion GI/ABD: Soft, non-distended. NEURO: Flaccid paralysis on the right side. Patient moves left hand and left leg on command MUSC: No calf asymmetry appreciated SKIN: Sacrum inspected 1/3; previously sacral pressure ulcer extended from anus to coccyx; stage II, unchanged EXTREMITIES: no LE edema Other: urinary catheter in place. Procedures ORIF 04/21/17 Intubation 04/30/17 Chest tube placement 05/07/17, removed 05/12/17 Trach placement 05/15/17 PEG tube placement 05/16/17 A/P Assessment and Plan 76 y/o female with HTN, DM admitted for DKA and hip fracture s/p large CVA after ORIF she is currently stable with her current treatment but has had no meaningful functional recovery and do not anticipate any further neurologic recovery from here on. Dr. Harper, Dr. Tran and case management had a long discussion with the daughter on 07/23 and the patient's daughter is still hopeful for full recovery for her mom in spite of her mom's state of health since her CVA. DW the daughter that it is our belief based on her clinical picture that she will not make any sort of meaningful recovery and will remain on the trach and PEG for the rest of her life. DW the daughter due to her status that the patient will likely continue to decline and continue to acquire infections associated with this type of clinical picture including UTI, PNA, and sepsis. DW the daughter to consider the QOL that her mother would have wanted. We recommend that this patient receive Hospice services as we would not anticipate her living longer than 6 months. The daughter does not want to consider this at this time and she is the sole decision maker for this patient. In that case, we will continue to treat the patient aggressively as issues arise and honor the families wishes. A one-hour long family meeting was held (07/26) with patient's daughter Trice, Dr. Harper, Dr. Watts and patient's nurse to discuss patient's poor prognosis. We felt it was important to listen to daughter's perspective and address any questions or concerns she has about her mother's care. Patient goals of care were also discussed. Daughter still wants aggressive treatment. Daughter was informed that from our medical standpoint we do not anticipated any meaningful recovery from her mother's current baseline. Neither do we anticipate for mother to be able to get off PEG tube feeds and trach. However, we will continue to honor daughter's wishes and provide aggressive medical care. ID and pulmonology are actively following. Patient is currently being treated for MDR pseudomonas pna and pulmonology recommended bronchoscopy. Risk and benefits of the procedure were explained and discussed with daughter. The option for her mother not to have the bronchoscopy and to instead continue treatment with antibiotics was also discussed. She is currently unsure about the procedure. She was advised to take time to think about her decision keeping in mind what her mother's wishes would be. 08/02- Daughter at bedside. I had a long discussion with the daughter. Discussed with her about patient's unchanged status. She agreed to thoracentesis done on 08/05. She still wants aggressive care for her mother. Discharge Planning complex case managerreport manager Ramses mendoza [id number] Problem List: (1) Chronic respiratory failure ICD Codes: J96.10 - Chronic respiratory failure, unspecified whether with hypoxia or hypercapnia Plan: -Continue respiratory therapy -T-tube supplementation --Pulmonology following (Dr. Rizo), recommended bronchoscopy procedure, daughter refused -Aerosol nebs -Supplement O2 -TF -Pseudomonas (mcdonald-resistant) on sputum culture 08/25 Impression: No respiratory symptoms or leukocytosis to suggest pneumonia at this time -ID suggest likely colonization at this time, will hold off on cultures unless symptomatic or acute changes present. No antibiotics at this time. -Chest x-ray with no significant change Impression/History: At this point, respiratory failure is chronic on T-tube Hospital Acquired PNA on 07/21 CXR 08/01 demonstrating bilateral airspace disease and effusions, R>L US chest wall 08/02- moderate right pleural effusion. - Consulted IR for US guided thoracentesis, performed on 08/05 removing 1450 cc of clear yellow fluid - Pleural fluid culture from 08/05 with no growth after 72 hours Legionella and S pneumonia urine antigen negative Infection History Pseudomonas hospital-acquired pneumonia - resolved MSSA bacteremia - resolved Serratia/staph aureus pneumonia - resolved C glabrata UTI - resolved Citrobacter UTI - resolved Serratia/MSSA sputum VAP - resolved Antibiotic History Cefazolin: 04/21-04/22, 05/15-05/16 Cefepime: 04/30-05/04, 05/27-06/03 Ceftrioxone 05/26-05/27 Erythromycin 06/16-06/18, 06/19 Gentamicin 04/21 vancomycin 04/30-05/04, 06/21-06/23 Zosyn 07/21 - 07/25 Azithromycin 07/21 - 07/25 Fluconazole 04/29 - ; 07/26 ceftolozane/ tazobactam 07/25 - 08/06 Colistin nebs q8h 08/06 - 08/11 (2) Pleural effusion ICD Codes: J90 - Pleural effusion, not elsewhere classified Status: Acute Plan: US chest 08/01 demonstrating moderate right pleural effusion Consulted IR for US guided thoracentesis, performed on 08/05 removing 1450 cc of clear yellow fluid - Pleural fluid culture from 08/05 with no growth after 72 hours Further plan as above -Repeat CXR 08/27 with no significant change (3) Acute CVA (cerebrovascular accident) ICD Codes: I63.9 - Cerebral infarction, unspecified Status: Chronic Plan: Neurologically stable, no improvement. Overall prognosis is poor. Persistent oxygen requirement See above note about meeting with Daughter on 07/23 and 07/26. Daughter still desires full code and aggressive care -Titrate oxygen via trach to maintain O2 saturation above 92% -Continue tube fees at 45ml/hr 24 hours per day thru peg Tube -Neurosurgery, neurology and palliative care have all been consulted in the past and agree with very poor prognosis with no meaningful neurologic recovery. History and imaging: Patient found minimally responsive with neurological deficits around 0820 04/24. Stat CT of head was ordered, which showed large left MCA infarct. Diffuse edema throughout the left MCA distribution, suggested completed infarct. This was discussed and was not a candidate for intracranial intervention. CT (04/30): Reduction in midline shift to 11mm. Unchanged large left MCA infarction. CT head (05/06) shows: Evolving large left-sided MCA territory infarct with minimally improved [id number] subfalcine shift. No intercurrent hemorrhage or other acute abnormality. Echocardiogram- The left ventricular systolic function is low normal with an estimated ejection fraction in the range of 50-55%. Mild concentric left ventricular hypertrophy. Normal left ventricular size. [id number] mitral valve regurgitation. Carotid Artery US- No hemodynamically significant carotid stenosis (4) UTI (urinary tract infection) ICD Codes: N39.0 - Urinary tract infection, site not specified Status: Acute Plan: UCx on 07/15 positive for E coli Repeat UCx on 07/20 positive for C. Freundii UCx 07/24 grew only yeast; no bacteria Cloudy urine in moser bag noted by nurse (09/08): -UA order placed, + UTI -moser replacement ordered -WBC WNL -Ucx: gram negative rods -bactrim Q12h via PEG ordered for treatment of UTI - See above for antibiotic history and coverage (5) Sacral decubitus ulcer ICD Codes: L89.159 - Pressure ulcer of sacral region, unspecified stage Status: Chronic Plan: Patient with Stage II pressure injury over the coccyx -Wound care consult appreciated: 1. Please cleanse coccyx wound every 3 days and PRN for soiling. 2. Apply Calcium Alginate to open wound bed. 3. Secure with bordered gauze every 3 days and PRN for soiling. 4. Continue to turn patient every 2 hours or PRN for comfort. 5. Use one ultrasorb for moisture. Please use flat sheet for repositioning. Review of patient's ulcer today. Continue wound care recommendations. We'll need to further discuss with nursing staff about continued appropriate management of the ulcer. (6) Anemia ICD Codes: D64.9 - Anemia, unspecified Status: Chronic Plan: s/p 1u of PRBC on 05/28/17. Hgb stable Hemoccult negative on 05/29 - monitor H&H periodically (7) Urinary retention ICD Codes: R33.9 - Retention of urine, unspecified Status: Chronic Plan: - Cath last changed 09/08/17, - Urine output WNL (8) Type 2 diabetes mellitus ICD Codes: E11.9 - Type 2 diabetes mellitus without complications Status: Chronic Plan: -continue to monitor BSG -Continue Levemir 7 units q 12 hrs -Will continue to monitor -Glucerna for PEG tube feedings @ 45 ml/hr -Glucagon 1 mg per PRN protocol for hypoglycemia BS <70mg/dL History Admitted for DKA which has now resolved. Hemoglobin A1C 12.9 04/2017 (9) Hip fracture ICD Codes: S72.009A - Fracture of unspecified part of neck of unspecified femur , initial encounter for closed fracture Status: Resolved Plan: S/P left hip reduction and intramedullary nail fixation on 04-21-17 -c/w Calcium/Vitamin D (10) Hypertension ICD Codes: I10 - Essential (primary) hypertension Status: Chronic Plan: -Antihypertensives to keep SBP<160 -c/w clonidine 0.1mg Q6h PRN SBP >160 -Amlodipine 10mg daily -lisinopril 40mg Q12h po - Pt BP slightly elevated ranging 120s-175/70s -consider reevaluating BP meds if BP remains elevated Echocardiogram 04/24 - EF 50 to 55%. Mild concentric LVH. (11) Fluids, Electrolytes, and Nutrition Status: Acute Plan: Fluids: through PEG tube Electrolyte: Continue to monitor periodically, replete as needed Nutrition: continuous Glucerna tube feeds and free water, pump at 45mls/hr, tolerating feeds well, no residual. Protein 1 pack TID. Supplements: calcium TID and vit D3 QD DVT ppx: SCDs/heparin CVA ppx: aspirin 325 mg QD GI ppx: Lansoprazole 30mg qd via NG See the residents documentation for details. I saw and evaluated the patient regarding the nelson portions of this evaluation and agree with the residents findings and plans as written. Problem Qualifiers (1) Chronic respiratory failure: Qualified Codes: J96.11 - Chronic respiratory failure with hypoxia (2) UTI (urinary tract infection): Qualified Codes: N39.0 - Urinary tract infection, site not specified (3) Sacral decubitus ulcer: Qualified Codes: L89.152 - Pressure ulcer of sacral region, stage 2 (4) Type 2 diabetes mellitus: Qualified Codes: E11.9 - Type 2 diabetes mellitus without complications (5) Hip fracture: (6) Hypertension: Qualified Codes: I10 - Essential (primary) hypertension Chito Damon MD, R1 Sep 09, 2017 15:08
--- NOTE | 2017-09-09 19:15 | HHI.PR ---
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 opens eyes, No new complaint no fever Objective Vital Signs Vital Signs Date Time Temp Pulse Resp B/P (MAP) Pulse Ox O2 Delivery O2 Flow Rate FiO2 09/09/17 16:00 98.7 76 19 159/72 (101) 95 09/09/17 12:00 98.7 80 20 175/81 (112) 100 09/09/17 08:38 97 T-piece 28 09/09/17 08:00 96.9 77 20 146/69 (94) 100 09/09/17 00:59 95 T-piece 6.00 28 09/09/17 00:00 96.0 20 20 151/72 (98) 98 09/08/17 20:00 95.9 75 20 154/71 (98) 100 I/O 09/08/17 09/08/17 09/08/17 09/09/17 09/09/17 09/09/17 07:00 15:00 23:00 07:00 15:00 23:00 Intake Total 585 ml 0 ml 230 ml 380 ml 0 ml 0 ml Output Total 950 ml 1400 ml 1000 ml 900 ml Balance -365 ml 0 ml -1170 ml -620 ml 0 ml -900 ml Intake Oral 0 ml 0 ml 0 ml 0 ml 0 ml Tube Feeding 385 ml 200 ml 350 ml Other 200 ml 30 ml 30 ml Output Urine Total 950 ml 1400 ml 1000 ml 800 ml Stool Total 100 ml # Bowel Movements 5 Result Diagram: 09/09/17 0640 09/09/17 0640 Objective Remarks GENERAL: Elderly female,NAD SKIN: Warm and dry. HEAD: Normocephalic. EYES: No scleral icterus. No injection or drainage. NECK: Supple, trachea midline. No JVD or lymphadenopathy. CARDIOVASCULAR: Regular rate and rhythm without murmurs, gallops, or rubs. RESPIRATORY: Breath sounds equal bilaterally. No accessory muscle use. GASTROINTESTINAL: Abdomen soft, non-tender, nondistended. MUSCULOSKELETAL: No cyanosis, or edema. BACK: Nontender without obvious deformity. No CVA tenderness. A/P Assessment and Plan RF,S/P Trach CVA Pneumonia Pleural effusion Pseudomonas Tracheobronchitis, ? colonisation PLAN: Cont trach collar Aerosol nebs Supplement 02 Trach care TF LAI RN at Chris Rizo MD Sep 09, 2017 19:15
[2017-09-09] MEDS ORDERED: SULFAMETHOXAZOLE-TRIMETHOPRIM 800-160 MG/20 ML UDC PEG SCH (20:00)
[2017-09-09] MEDS: SULFAMETHOXAZOLE-TRIMETHOPRIM DS 800-160 MG TAB PEG SCH (23:05)
[2017-09-10] VITALS (8 sets, daily range): BP systolic 119–147; BP diastolic 56–70; PULSE 66–74; RESP 17–20; TEMP 96.3–97; O2SAT 94–100
[2017-09-10] MEDS: INSULIN ASPART SUPPLEMENTAL SCALE SQ SCH ×4 (01:02→16:22)
[2017-09-10] MEDS: HEPARIN SODIUM - SQ 10,000 UNITS/ML VIAL SQ SCH ×3 (05:58→23:37)
[2017-09-10] MEDS: ARTIFICIAL TEARS OPTH SOLN 15 ML BTL EACH EYE SCH ×3 (06:07→23:39)
[2017-09-10] MEDS: INSULIN DETEMIR 100 UNITS/ML VIAL SQ SCH ×2 (09:00→23:38)
[2017-09-10] MEDS: BENEPROTEIN POWDER 1 PACK G-TUBE SCH ×3 (09:00→16:21)
[2017-09-10] MEDS: SODIUM CHLORIDE 0.9% FLUSH 5 ML FLUSH IV FLUSH SCH ×2 (09:00→23:37)
[2017-09-10 09:12] LABS: AUTOMATED NEUTROPHIL # 5.9 TH/MM3 (1.8-7.7); BASOPHIL # 0.1 TH/MM3 (0-0.2); EOSINOPHIL # 0.7 TH/MM3 (0-0.4); EOSINOPHIL % 6.9 % (0.0-4.0); HEMOGLOBIN 11.9 GM/DL (11.6-15.3); LYMPH % 24.8 % (9.0-44.0); LYMPHOCYTE # 2.4 TH/MM3 (1.0-4.8); MEAN CELL VOLUME 97.9 FL (80.0-100.0); MEAN CORPUSCULAR HEMOGLOBIN 33.2 PG (27.0-34.0); MEAN CORPUSCULAR HGB CONC 33.9 % (32.0-36.0); MEAN PLATELET VOLUME 10.3 FL (7.0-11.0); MONO % 6.7 % (0.0-8.0); MONOCYTE # 0.7 TH/MM3 (0-0.9); NEUT % 60.6 % (16.0-70.0); PLATELET COUNT 301 TH/MM3 (150-450); RED BLOOD COUNT 3.57 MIL/MM3 (4.00-5.30); RED CELL DISTRIBUTION WIDTH 15.1 % (11.6-17.2); WHITE BLOOD COUNT 9.8 TH/MM3 (4.0-11.0)
[2017-09-10] MEDS: POLYETHYLENE GLYCOL 17 GM PKG PEG SCH (09:34)
[2017-09-10] MEDS: LISINOPRIL 20 MG TAB PO SCH ×2 (09:34→23:37)
[2017-09-10] MEDS: CALCIUM/VITAMIN D 250 MG/125 U TAB PO SCH ×3 (09:35→16:22)
[2017-09-10] MEDS: ASPIRIN 325 MG TAB DOBHOFF SCH (09:35)
[2017-09-10] MEDS: SULFAMETHOXAZOLE-TRIMETHOPRIM DS 800-160 MG TAB PEG SCH ×2 (09:35→23:38)
[2017-09-10] MEDS: LANSOPRAZOLE SOLUTAB 30 MG TAB NG SCH (09:35)
[2017-09-10] MEDS: CHOLECALCIFEROL (VIT D3) 5000 UNIT CAP PO SCH (09:35)
[2017-09-10 09:50] LABS: BICARBONATE 31.8 MEQ/L (21.0-32.0); CALCIUM 9.5 MG/DL (8.5-10.1); CREATININE 0.59 MG/DL (0.50-1.00)
--- NOTE | 2017-09-10 13:09 | PD.WCN.NOT ---
Wound Consult Description: Follow up on coccyx wound. Communicated with: MEGAN Denton Recommendation: 1. Please cleanse coccyx wound every 3 days and PRN for soiling. 2. Apply Calcium Alginate to open wound bed. 3. Secure with bordered gauze every 3 days and PRN for soiling. 4. Continue to turn patient every 2 hours or PRN for comfort. Please use one ultrasorb for moisture. Please use flat sheet for repositioning on specialty surface. Additional Information: Patient seen with GREGORY Denton on for follow up of wound evaluation to coccyx. Patient was repositioned to her left side for visualization of coccyx wound. Foam adhesive removed from sacrococcygeal to reveal a partial thickness wound with 100% red non granulating tissue measuring 0.7cm x 0.7cm x ~0.2cm without odor and without active drainage. Wound margins are epithelializing with thick white tissue noted circumferentially. Periwound is unremarkable. Wound was dressed as ordered with Calcium Alginate and bordered gauze dressing dated today. Patient is noted on a specialty surface and being repositioned as medical technical writer left room. Wound has improved since last assessment from orchid superintendent. Snehal Oilvier CEZAR Sep 10, 2017 13:09
--- NOTE | 2017-09-10 14:59 | HHI.PR ---
Subjective Remarks Mrs. Hein is a 77-year-old female admitted with DKA and left hip fracture sustained a large CVA. Since that time she's been poorly responsive and has no expectations for recovery to any functional status. Long-term placement options are being considered. Objective Vital Signs Date Time Temp Pulse Resp B/P (MAP) Pulse Ox O2 Delivery O2 Flow Rate FiO2 09/10/17 12:54 97 T-piece 28 09/10/17 12:54 97 T-piece 28 09/10/17 12:00 96.5 66 18 143/66 (91) 97 09/10/17 08:00 100 Trach Collar 6.00 Humidified 09/10/17 08:00 96.3 74 20 147/67 (93) 100 09/10/17 01:58 96 T-piece 28 09/10/17 00:00 96.3 71 18 147/70 (95) 99 09/09/17 20:30 98 Trach Collar 6.00 28 09/09/17 20:00 96.7 76 18 132/69 (90) 98 09/09/17 16:00 98.7 76 19 159/72 (101) 95 I/O 09/09/17 09/09/17 09/09/17 09/10/17 09/10/17 09/10/17 07:00 15:00 23:00 07:00 15:00 23:00 Intake Total 380 ml 0 ml 0 ml 0 ml Output Total 1000 ml 900 ml 600 ml Balance -620 ml 0 ml -900 ml -600 ml Intake Oral 0 ml 0 ml 0 ml 0 ml Tube Feeding 350 ml Other 30 ml Output Urine Total 1000 ml 800 ml 600 ml Stool Total 100 ml # Bowel Movements 3 Result Diagram: 09/10/1782809/10/17828 Objective Remarks GENERAL: NAD, A&Ox0 HEAD: Normocephalic. NECK: Supple, trachea midline. No lymphadenopathy. Tracheostomy present. EYES: No scleral icterus. No injection or drainage. CARDIOVASCULAR: Regular rate and rhythm without murmurs, gallops, or rubs. RESPIRATORY: Breath sounds equal bilaterally. No accessory muscle use. GASTROINTESTINAL: Abdomen soft, non-tender, nondistended. MUSCULOSKELETAL: No cyanosis, or edema. SKIN: Warm and dry. NEURO: No focal neurological deficitis. A/P Problem List: (1) CVA (cerebral vascular accident) ICD Code: I63.9 - Cerebral infarction, unspecified Status: Acute Assessment and Plan 76 y/o female with HTN, DM admitted for DKA and hip fracture s/p large CVA Chronic respiratory failure Continue tracheostomy Continue oxygen Supportive care Respiratory therapy following Pseudomonas from 08/25/17 appears to be a colonization Pulmonology following Status post large CVA Chronic encephalopathy from large CVA No expectations for recovery Small improvements are not to be taken as a suggestion that patient will have any large improvements as a result Expectations are for chronic debility of motor function in cognitive status Overall poor prognosis Daily aspirin continued Sacral decubitus ulcer Continue wound care Calcium Alginate to open wound bed. 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
--- NOTE | 2017-09-10 16:58 | HHI.PR ---
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 opens eyes, No new complaint no fever No bleeding from trach site Objective Vital Signs Vital Signs Date Time Temp Pulse Resp B/P (MAP) Pulse Ox O2 Delivery O2 Flow Rate FiO2 09/10/17 16:00 97.0 72 18 129/62 (84) 100 09/10/17 12:54 97 T-piece 28 09/10/17 12:54 97 T-piece 28 09/10/17 12:00 96.5 66 18 143/66 (91) 97 09/10/17 08:00 100 Trach Collar 6.00 Humidified 09/10/17 08:00 96.3 74 20 147/67 (93) 100 09/10/17 01:58 96 T-piece 28 09/10/17 00:00 96.3 71 18 147/70 (95) 99 09/09/17 20:30 98 Trach Collar 6.00 28 09/09/17 20:00 96.7 76 18 132/69 (90) 98 I/O 09/09/17 09/09/17 09/09/17 09/10/17 09/10/17 09/10/17 07:00 15:00 23:00 07:00 15:00 23:00 Intake Total 380 ml 0 ml 0 ml 0 ml Output Total 1000 ml 900 ml 600 ml Balance -620 ml 0 ml -900 ml -600 ml Intake Oral 0 ml 0 ml 0 ml 0 ml Tube Feeding 350 ml Other 30 ml Output Urine Total 1000 ml 800 ml 600 ml Stool Total 100 ml # Bowel Movements 3 Result Diagram: 09/10/1782809/10/17828 Objective Remarks GENERAL: Elderly female,NAD SKIN: Warm and dry. HEAD: Normocephalic. EYES: No scleral icterus. No injection or drainage. NECK: Supple, trachea midline. No JVD or lymphadenopathy. CARDIOVASCULAR: Regular rate and rhythm without murmurs, gallops, or rubs. RESPIRATORY: Breath sounds equal bilaterally. No accessory muscle use. GASTROINTESTINAL: Abdomen soft, non-tender, nondistended. MUSCULOSKELETAL: No cyanosis, or edema. BACK: Nontender without obvious deformity. No CVA tenderness. A/P Assessment and Plan RF,S/P Trach CVA Pneumonia Pleural effusion Pseudomonas Tracheobronchitis, ? colonisation PLAN: Cont trach collar Aerosol nebs Supplement 02 Trach care TF DW RN at BS Chris Rizo MD Sep 10, 2017 16:58
[2017-09-11] VITALS (8 sets, daily range): BP systolic 118–149; BP diastolic 58–68; PULSE 46–76; RESP 17–20; TEMP 97.1–98.2; O2SAT 94–100
[2017-09-11] MEDS: INSULIN ASPART SUPPLEMENTAL SCALE SQ SCH ×4 (03:38→17:21)
[2017-09-11] MEDS: HEPARIN SODIUM - SQ 10,000 UNITS/ML VIAL SQ SCH ×3 (08:03→21:42)
[2017-09-11] MEDS: ARTIFICIAL TEARS OPTH SOLN 15 ML BTL EACH EYE SCH ×3 (08:04→21:42)
[2017-09-11] MEDS: BENEPROTEIN POWDER 1 PACK G-TUBE SCH ×3 (09:00→17:21)
[2017-09-11] MEDS: SODIUM CHLORIDE 0.9% FLUSH 5 ML FLUSH IV FLUSH SCH ×2 (09:00→21:00)
[2017-09-11] MEDS: INSULIN DETEMIR 100 UNITS/ML VIAL SQ SCH ×2 (09:00→21:00)
[2017-09-11] MEDS: POLYETHYLENE GLYCOL 17 GM PKG PEG SCH (09:00)
[2017-09-11] MEDS: SULFAMETHOXAZOLE-TRIMETHOPRIM DS 800-160 MG TAB PEG SCH ×2 (09:14→21:42)
[2017-09-11] MEDS: LANSOPRAZOLE SOLUTAB 30 MG TAB NG SCH (09:14)
[2017-09-11] MEDS: CHOLECALCIFEROL (VIT D3) 5000 UNIT CAP PO SCH (09:14)
[2017-09-11] MEDS: LISINOPRIL 20 MG TAB PO SCH ×2 (09:14→21:42)
[2017-09-11] MEDS: ASPIRIN 325 MG TAB DOBHOFF SCH (09:14)
[2017-09-11] MEDS: CALCIUM/VITAMIN D 250 MG/125 U TAB PO SCH ×3 (09:15→17:21)
[2017-09-11 09:36] LABS: AUTOMATED NEUTROPHIL # 6.2 TH/MM3 (1.8-7.7); BASOPHIL # 0.1 TH/MM3 (0-0.2); BASOPHIL % 1.1 % (0.0-2.0); EOSINOPHIL # 0.5 TH/MM3 (0-0.4); EOSINOPHIL % 5.3 % (0.0-4.0); HEMATOCRIT 35.6 % (35.0-46.0); HEMOGLOBIN 11.9 GM/DL (11.6-15.3); LYMPHOCYTE # 2.1 TH/MM3 (1.0-4.8); MEAN CELL VOLUME 98.2 FL (80.0-100.0); MEAN CORPUSCULAR HEMOGLOBIN 32.9 PG (27.0-34.0); MEAN CORPUSCULAR HGB CONC 33.5 % (32.0-36.0); MEAN PLATELET VOLUME 10.1 FL (7.0-11.0); MONO % 6.2 % (0.0-8.0); MONOCYTE # 0.6 TH/MM3 (0-0.9); NEUT % 65.4 % (16.0-70.0); PLATELET COUNT 328 TH/MM3 (150-450); RED BLOOD COUNT 3.63 MIL/MM3 (4.00-5.30); RED CELL DISTRIBUTION WIDTH 15.6 % (11.6-17.2); WHITE BLOOD COUNT 9.5 TH/MM3 (4.0-11.0)
[2017-09-11 10:10] LABS: ALT (GPT) 32 U/L (10-53)
[2017-09-11 10:12] LABS: ALBUMIN 2.7 GM/DL (3.4-5.0); ALKALINE PHOSPHATASE 180 U/L (45-117); AST (GOT) 26 U/L (15-37); BICARBONATE 31.1 MEQ/L (21.0-32.0); BLOOD UREA NITROGEN 58 MG/DL (7-18); CALCIUM 9.8 MG/DL (8.5-10.1); CHLORIDE 104 MEQ/L (98-107); CREATININE 0.73 MG/DL (0.50-1.00); GLOMERULAR FILTRATION RATE 78 ML/MIN (>89); GLUCOSE,RANDOM 186 MG/DL (74-106); SODIUM (NA) 141 MEQ/L (136-145); TOTAL BILIRUBIN ADULT 0.2 MG/DL (0.2-1.0); TOTAL PROTEIN 7.3 GM/DL (6.4-8.2)
--- NOTE | 2017-09-11 11:19 | HHI.PR ---
Subjective Remarks Patient is unable to provide any history. She is not interactive. Unable to communicate. Mrs. Hein is a 77-year-old female admitted with DKA and left hip fracture sustained a large CVA. Since that time she's been poorly responsive and has no expectations for recovery to any functional status. Long-term placement options are being considered. Objective Vital Signs Date Time Temp Pulse Resp B/P (MAP) Pulse Ox O2 Delivery O2 Flow Rate FiO2 09/11/17 07:55 97.5 71 20 146/61 (89) 98 09/11/17 04:00 98.2 75 20 139/65 (89) 94 09/11/17 00:00 97.8 76 20 149/67 (94) 96 09/10/17 20:57 94 T-piece 6.00 28 09/10/17 20:57 94 T-piece 6.00 28 09/10/17 20:00 96.6 70 17 119/56 (77) 95 09/10/17 16:00 97.0 72 18 129/62 (84) 100 09/10/17 12:54 97 T-piece 28 09/10/17 12:54 97 T-piece 28 09/10/17 12:00 96.5 66 18 143/66 (91) 97 I/O 09/10/17 09/10/17 09/10/17 09/11/17 09/11/17 09/11/17 07:00 15:00 23:00 07:00 15:00 23:00 Intake Total 0 ml 0 ml Output Total 600 ml 500 ml 600 ml Balance -600 ml -500 ml -600 ml Intake Oral 0 ml 0 ml Output Urine Total 600 ml 500 ml 600 ml # Bowel Movements 3 3 2 Result Diagram: 09/11/17 0846 09/11/17 0846 Objective Remarks GENERAL: NAD, A&Ox0 HEAD: Normocephalic. NECK: Supple, trachea midline. No lymphadenopathy. Tracheostomy present. EYES: No scleral icterus. No injection or drainage. CARDIOVASCULAR: Regular rate and rhythm without murmurs, gallops, or rubs. RESPIRATORY: Breath sounds equal bilaterally. No accessory muscle use. GASTROINTESTINAL: Abdomen soft, non-tender, nondistended. MUSCULOSKELETAL: No cyanosis, or edema. SKIN: Warm and dry. NEURO: No focal neurological deficitis. A/P Problem List: (1) CVA (cerebral vascular accident) ICD Code: I63.9 - Cerebral infarction, unspecified Status: Acute Assessment and Plan 76 y/o female with HTN, DM admitted for DKA and hip fracture s/p large CVA . No significant change from yesterday. Patient unable to express any complaints. 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
--- NOTE | 2017-09-11 18:06 | HHI.PR ---
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 opens eyes, No new complaint no fever daughter Gisele at [facility] " very happy with her improvement She squeezes my hand and pulls her gown when wet" Objective Vital Signs Vital Signs Date Time Temp Pulse Resp B/P (MAP) Pulse Ox O2 Delivery O2 Flow Rate FiO2 09/11/17 16:00 97.7 46 20 118/58 (78) 99 09/11/17 14:10 100 T-piece 28 09/11/17 13:27 53 17 128/68 (88) 100 09/11/17 12:00 97.8 56 18 128/59 (82) 100 09/11/17 08:00 Trach Collar 6.00 28 Humidified 09/11/17 07:55 97.5 71 20 146/61 (89) 98 09/11/17 04:00 98.2 75 20 139/65 (89) 94 09/11/17 00:00 97.8 76 20 149/67 (94) 96 09/10/17 20:57 94 T-piece 6.00 28 09/10/17 20:57 94 T-piece 6.00 28 09/10/17 20:00 96.6 70 17 119/56 (77) 95 I/O 09/10/17 09/10/17 09/10/17 09/11/17 09/11/17 09/11/17 07:00 15:00 23:00 07:00 15:00 23:00 Intake Total 0 ml 0 ml Output Total 600 ml 500 ml 600 ml Balance -600 ml -500 ml -600 ml Intake Oral 0 ml 0 ml Output Urine Total 600 ml 500 ml 600 ml # Bowel Movements 3 3 2 Result Diagram: 09/11/1746 09/11/1746 Objective Remarks GENERAL: Elderly female,NAD SKIN: Warm and dry. HEAD: Normocephalic. EYES: No scleral icterus. No injection or drainage. NECK: Supple, trachea midline. No JVD or lymphadenopathy. CARDIOVASCULAR: Regular rate and rhythm without murmurs, gallops, or rubs. RESPIRATORY: Breath sounds equal bilaterally. No accessory muscle use. GASTROINTESTINAL: Abdomen soft, non-tender, nondistended. MUSCULOSKELETAL: No cyanosis, or edema. BACK: Nontender without obvious deformity. No CVA tenderness. A/P Assessment and Plan RF,S/P Trach CVA Pneumonia Pleural effusion Pseudomonas Tracheobronchitis, ? colonisation PLAN: Cont trach collar Aerosol nebs Supplement 02 Trach care TF DW daughter Asmita at [facility] Rizo MD Sep 11, 2017 18:06
[2017-09-12] VITALS (7 sets, daily range): BP systolic 113–140; BP diastolic 63–73; PULSE 65–75; RESP 18–20; TEMP 96.4–97.8; O2SAT 94–100
[2017-09-12] MEDS: ARTIFICIAL TEARS OPTH SOLN 15 ML BTL EACH EYE SCH ×3 (06:00→21:21)
[2017-09-12] MEDS: INSULIN ASPART SUPPLEMENTAL SCALE SQ SCH ×5 (06:00→23:16)
[2017-09-12] MEDS: HEPARIN SODIUM - SQ 10,000 UNITS/ML VIAL SQ SCH ×3 (06:09→21:20)
[2017-09-12] MEDS: INSULIN DETEMIR 100 UNITS/ML VIAL SQ SCH ×2 (09:00→21:20)
[2017-09-12] MEDS: LISINOPRIL 20 MG TAB PO SCH ×2 (09:00→21:20)
[2017-09-12] MEDS: ASPIRIN 325 MG TAB DOBHOFF SCH (09:00)
[2017-09-12] MEDS: BENEPROTEIN POWDER 1 PACK G-TUBE SCH ×3 (09:00→16:41)
[2017-09-12] MEDS: CALCIUM/VITAMIN D 250 MG/125 U TAB PO SCH ×3 (09:00→16:41)
[2017-09-12] MEDS: SULFAMETHOXAZOLE-TRIMETHOPRIM DS 800-160 MG TAB PEG SCH ×2 (09:00→21:20)
[2017-09-12] MEDS: LANSOPRAZOLE SOLUTAB 30 MG TAB NG SCH (09:00)
[2017-09-12] MEDS: SODIUM CHLORIDE 0.9% FLUSH 5 ML FLUSH IV FLUSH SCH ×2 (09:00→21:21)
[2017-09-12] MEDS: CHOLECALCIFEROL (VIT D3) 5000 UNIT CAP PO SCH (09:00)
[2017-09-12] MEDS: POLYETHYLENE GLYCOL 17 GM PKG PEG SCH (09:00)
--- NOTE | 2017-09-12 12:04 | HHI.PR ---
Subjective Remarks Patient unable to communicate. History not possible. She has no significant change compared to previous day. Vital signs stable. Mrs. Hein is a 77-year-old female admitted with DKA and left hip fracture sustained a large CVA. Since that time she's been poorly responsive and has no expectations for recovery to any functional status. Long-term placement options are being considered. Objective Vital Signs Date Time Temp Pulse Resp B/P (MAP) Pulse Ox O2 Delivery O2 Flow Rate FiO2 09/12/17 08:42 100 T-piece 5.00 28 09/12/17 08:42 100 T-piece 5.00 09/12/17 08:00 97.3 75 18 137/64 (88) 99 09/12/17 03:21 99 T-piece 6.00 28 09/12/17 00:00 96.6 71 18 139/63 (88) 99 09/11/17 21:00 99 T-Piece 6.00 28 09/11/17 20:00 97.1 54 18 132/60 (84) 100 09/11/17 16:00 97.7 46 20 118/58 (78) 99 09/11/17 14:10 100 T-piece 28 09/11/17 13:27 53 17 128/68 (88) 100 I/O 09/11/17 09/11/17 09/11/17 09/12/17 09/12/17 09/12/17 07:00 15:00 23:00 07:00 15:00 23:00 Intake Total 0 ml Output Total 600 ml 300 ml 1000 ml Balance -600 ml -300 ml -1000 ml Intake Oral 0 ml Output Urine Total 600 ml 300 ml 1000 ml # Bowel Movements 2 0 1 Result Diagram: 09/11/1746 09/11/1746 Objective Remarks GENERAL: NAD, A&Ox0 HEAD: Normocephalic. NECK: Supple, trachea midline. No lymphadenopathy. Tracheostomy present. EYES: No scleral icterus. No injection or drainage. CARDIOVASCULAR: Regular rate and rhythm without murmurs, gallops, or rubs. RESPIRATORY: Breath sounds equal bilaterally. No accessory muscle use. GASTROINTESTINAL: Abdomen soft, non-tender, nondistended. MUSCULOSKELETAL: No cyanosis, or edema. SKIN: Warm and dry. NEURO: No focal neurological deficitis. A/P Problem List: (1) CVA (cerebral vascular accident) ICD Code: I63.9 - Cerebral infarction, unspecified Status: Acute Assessment and Plan 76 y/o female with HTN, DM admitted for DKA and hip fracture s/p large CVA . No significant change from yesterday. Patient unable to express any complaints. No acute concerns today. Vital signs stable. 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
--- NOTE | 2017-09-12 16:52 | HHI.PR ---
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 opens eyes, No new complaint no fever Objective Vital Signs Vital Signs Date Time Temp Pulse Resp B/P (MAP) Pulse Ox O2 Delivery O2 Flow Rate FiO2 09/12/17 12:00 97.8 65 18 138/63 (88) 95 09/12/17 08:42 100 T-piece 5.00 28 09/12/17 08:42 100 T-piece 5.00 09/12/17 08:00 97.3 75 18 137/64 (88) 99 09/12/17 08:00 97 Nasal Cannula 6.00 28 09/12/17 03:21 99 T-piece 6.00 28 09/12/17 00:00 96.6 71 18 139/63 (88) 99 09/11/17 21:00 99 T-Piece 6.00 28 09/11/17 20:00 97.1 54 18 132/60 (84) 100 I/O 09/11/17 09/11/17 09/11/17 09/12/17 09/12/17 09/12/17 07:00 15:00 23:00 07:00 15:00 23:00 Intake Total 0 ml Output Total 600 ml 300 ml 1000 ml Balance -600 ml -300 ml -1000 ml Intake Oral 0 ml Output Urine Total 600 ml 300 ml 1000 ml # Bowel Movements 2 0 1 Result Diagram: 09/11/17 0846 09/11/17 0846 Objective Remarks GENERAL: Elderly female,NAD SKIN: Warm and dry. HEAD: Normocephalic. EYES: No scleral icterus. No injection or drainage. NECK: Supple, trachea midline. No JVD or lymphadenopathy. CARDIOVASCULAR: Regular rate and rhythm without murmurs, gallops, or rubs. RESPIRATORY: Breath sounds equal bilaterally. No accessory muscle use. GASTROINTESTINAL: Abdomen soft, non-tender, nondistended. MUSCULOSKELETAL: No cyanosis, or edema. BACK: Nontender without obvious deformity. No CVA tenderness. A/P Assessment and Plan RF,S/P Trach CVA Pneumonia Pleural effusion Pseudomonas Tracheobronchitis, ? colonisation PLAN: Cont trach collar Aerosol nebs Supplement 02 Trach care TF Available prn over weekend. Chris Rizo MD Sep 12, 2017 16:52
[2017-09-13] VITALS (9 sets, daily range): BP systolic 132–149; BP diastolic 60–67; PULSE 58–90; RESP 18–20; TEMP 96.2–99.1; O2SAT 96–100
[2017-09-13] MEDS: HEPARIN SODIUM - SQ 10,000 UNITS/ML VIAL SQ SCH ×2 (05:59→15:40)
[2017-09-13] MEDS: ARTIFICIAL TEARS OPTH SOLN 15 ML BTL EACH EYE SCH ×2 (05:59→11:57)
[2017-09-13] MEDS: INSULIN ASPART SUPPLEMENTAL SCALE SQ SCH ×3 (06:11→18:11)
[2017-09-13] MEDS: BENEPROTEIN POWDER 1 PACK G-TUBE SCH ×3 (08:08→18:00)
[2017-09-13] MEDS: INSULIN DETEMIR 100 UNITS/ML VIAL SQ SCH (08:09)
[2017-09-13] MEDS: ASPIRIN 325 MG TAB DOBHOFF SCH (08:11)
[2017-09-13] MEDS: SULFAMETHOXAZOLE-TRIMETHOPRIM DS 800-160 MG TAB PEG SCH (08:11)
[2017-09-13] MEDS: CHOLECALCIFEROL (VIT D3) 5000 UNIT CAP PO SCH (08:11)
[2017-09-13] MEDS: CALCIUM/VITAMIN D 250 MG/125 U TAB PO SCH ×3 (08:11→18:05)
[2017-09-13] MEDS: SODIUM CHLORIDE 0.9% FLUSH 5 ML FLUSH IV FLUSH SCH ×2 (08:12→21:00)
[2017-09-13] MEDS: LISINOPRIL 20 MG TAB PO SCH (08:12)
[2017-09-13] MEDS: LANSOPRAZOLE SOLUTAB 30 MG TAB NG SCH (08:12)
[2017-09-13] MEDS: POLYETHYLENE GLYCOL 17 GM PKG PEG SCH ×2 (08:12→08:22)
--- NOTE | 2017-09-13 13:40 | HHI.PR ---
Subjective Remarks No significant changes compared to yesterday. Patient is nonverbal can provide no history. She appears in no acute pain. Mrs. Hein is a 77-year-old female admitted with DKA and left hip fracture sustained a large CVA. Since that time she's been poorly responsive and has no expectations for recovery to any functional status. Long-term placement options are being considered. Objective Vital Signs Date Time Temp Pulse Resp B/P (MAP) Pulse Ox O2 Delivery O2 Flow Rate FiO2 09/13/17 13:30 97 T-piece 28 09/13/17 13:30 97 T-piece 28 09/13/17 12:00 98.9 72 20 132/63 (86) 98 09/13/17 08:20 99 Mechanical Ventilator 6.00 28 Trach Collar T-Piece 09/13/17 08:00 99.1 90 18 149/67 (94) 99 09/13/17 05:47 97 T-piece 6.00 28 09/13/17 05:47 97 T-piece 6.00 28 09/13/17 00:00 96.2 71 18 134/60 (84) 100 09/12/17 20:00 96.4 73 20 113/73 (86) 100 09/12/17 16:00 97.0 67 20 140/64 (89) 94 I/O 09/12/17 09/12/17 09/12/17 09/13/17 09/13/17 09/13/17 07:00 15:00 23:00 07:00 15:00 23:00 Intake Total 0 ml 380 ml 360 ml Output Total 1000 ml 400 ml 950 ml 2.0 ml Balance -1000 ml -20 ml -590 ml -2.0 ml Intake Oral 0 ml 0 ml Tube Feeding 380 ml 360 ml Output Urine Total 1000 ml 400 ml 950 ml Tube Feeding Residual Discard 2.0 ml # Bowel Movements 1 1 1 Result Diagram: 09/11/17 0846 09/11/17 0846 Objective Remarks GENERAL: NAD, A&Ox0 HEAD: Normocephalic. NECK: Supple, trachea midline. No lymphadenopathy. Tracheostomy present. EYES: No scleral icterus. No injection or drainage. CARDIOVASCULAR: Regular rate and rhythm without murmurs, gallops, or rubs. RESPIRATORY: Breath sounds equal bilaterally. No accessory muscle use. GASTROINTESTINAL: Abdomen soft, non-tender, nondistended. MUSCULOSKELETAL: No cyanosis, or edema. SKIN: Warm and dry. NEURO: No focal neurological deficitis. A/P Problem List: (1) CVA (cerebral vascular accident) ICD Code: I63.9 - Cerebral infarction, unspecified Status: Acute Assessment and Plan 76 y/o female with HTN, DM admitted for DKA and hip fracture s/p large CVA . No acute pain. Patient unable to express any complaints. No acute concerns today. Vital signs stable. 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
[2017-09-14] VITALS (9 sets, daily range): BP systolic 137–153; BP diastolic 63–70; PULSE 76–86; RESP 18; TEMP 95.7–97.4; O2SAT 90–99
[2017-09-14] MEDS: SULFAMETHOXAZOLE-TRIMETHOPRIM DS 800-160 MG TAB PEG SCH ×3 (00:09→21:47)
[2017-09-14] MEDS: LISINOPRIL 20 MG TAB PO SCH ×3 (00:09→21:47)
[2017-09-14] MEDS: ARTIFICIAL TEARS OPTH SOLN 15 ML BTL EACH EYE SCH ×4 (00:10→21:48)
[2017-09-14] MEDS: INSULIN ASPART SUPPLEMENTAL SCALE SQ SCH ×4 (00:18→18:04)
[2017-09-14] MEDS: HEPARIN SODIUM - SQ 10,000 UNITS/ML VIAL SQ SCH ×4 (00:19→21:48)
[2017-09-14] MEDS: INSULIN DETEMIR 100 UNITS/ML VIAL SQ SCH ×3 (00:19→21:48)
[2017-09-14] MEDS: ASPIRIN 325 MG TAB DOBHOFF SCH (08:53)
[2017-09-14] MEDS: BENEPROTEIN POWDER 1 PACK G-TUBE SCH ×3 (08:53→17:55)
[2017-09-14] MEDS: SODIUM CHLORIDE 0.9% FLUSH 5 ML FLUSH IV FLUSH SCH ×2 (08:53→21:00)
[2017-09-14] MEDS: CHOLECALCIFEROL (VIT D3) 5000 UNIT CAP PO SCH (08:53)
[2017-09-14] MEDS: CALCIUM/VITAMIN D 250 MG/125 U TAB PO SCH ×3 (08:53→17:55)
[2017-09-14] MEDS: LANSOPRAZOLE SOLUTAB 30 MG TAB NG SCH (08:53)
[2017-09-14] MEDS: POLYETHYLENE GLYCOL 17 GM PKG PEG SCH (08:53)
--- NOTE | 2017-09-14 14:57 | HHI.PR ---
Subjective Remarks Patient has periodically tolerated episodes off oxygen. Plan to attempt to wean oxygen and possible trach as tolerated. No significant changes compared to yesterday. Patient is nonverbal can provide no history. She appears in no acute pain. Mrs. Hein is a 77-year-old female admitted with DKA and left hip fracture sustained a large CVA. Since that time she's been poorly responsive and has no expectations for recovery to any functional status. Long-term placement options are being considered. Objective Vital Signs Date Time Temp Pulse Resp B/P (MAP) Pulse Ox O2 Delivery O2 Flow Rate FiO2 09/14/17 12:00 95.7 80 18 151/66 (94) 98 09/14/17 09:22 98 T-piece 28 09/14/17 09:22 98 T-piece 28 09/14/17 08:50 98 Mechanical Ventilator 6.00 28 Trach Collar T-Piece Humidified 09/14/17 08:00 96.0 80 18 142/63 (89) 99 09/14/17 00:00 96.4 86 18 153/70 (97) 98 09/13/17 21:30 Nasal Cannula 6.00 09/13/17 21:25 100 T-piece 6.00 28 09/13/17 21:22 100 T-piece 28 09/13/17 20:00 97.1 71 18 143/65 (91) 100 09/13/17 16:00 98.5 58 20 139/66 (90) 96 I/O 09/13/17 09/13/17 09/13/17 09/14/17 09/14/17 09/14/17 07:00 15:00 23:00 07:00 15:00 23:00 Intake Total 360 ml 901 ml 524 ml Output Total 950 ml 2.0 ml 650 ml 850 ml Balance -590 ml -2.0 ml 251 ml -326 ml Intake Oral 0 ml 0 ml 0 ml Tube Feeding 360 ml 901 ml 424 ml Tube Irrigant 100 ml Output Urine Total 950 ml 650 ml 850 ml Tube Feeding Residual Discard 2.0 ml # Bowel Movements 1 1 3 Result Diagram: 09/11/1746 09/11/17 0846 Objective Remarks GENERAL: NAD, A&Ox0 HEAD: Normocephalic. NECK: Supple, trachea midline. No lymphadenopathy. Tracheostomy present. EYES: No scleral icterus. No injection or drainage. CARDIOVASCULAR: Regular rate and rhythm without murmurs, gallops, or rubs. RESPIRATORY: Breath sounds equal bilaterally. No accessory muscle use. GASTROINTESTINAL: Abdomen soft, non-tender, nondistended. MUSCULOSKELETAL: No cyanosis, or edema. SKIN: Warm and dry. NEURO: No focal neurological deficitis. A/P Problem List: (1) CVA (cerebral vascular accident) ICD Code: I63.9 - Cerebral infarction, unspecified Status: Acute Assessment and Plan 76 y/o female with HTN, DM admitted for DKA and hip fracture s/p large CVA . Respiratory ordered for oxygen wean as tolerated and trach weaning may be possible if she tolerates oxygen weaning. No acute pain. Patient unable to express any complaints. No acute concerns today. Vital signs stable. 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
[2017-09-15] VITALS: BP 146/68; PULSE 79; RESP 16; TEMP 97.6; O2SAT 93
[2017-09-15] MEDS: INSULIN ASPART SUPPLEMENTAL SCALE SQ SCH ×5 (01:02→23:42)
[2017-09-15] MEDS: HEPARIN SODIUM - SQ 10,000 UNITS/ML VIAL SQ SCH ×3 (05:23→20:53)
[2017-09-15] MEDS: ARTIFICIAL TEARS OPTH SOLN 15 ML BTL EACH EYE SCH ×3 (05:23→20:54)
[2017-09-15 08:00] VITALS: BP 149/67; PULSE 87; RESP 18; TEMP 98.9; O2SAT 94
[2017-09-15] MEDS: BENEPROTEIN POWDER 1 PACK G-TUBE SCH ×3 (09:00→18:00)
[2017-09-15] MEDS: SODIUM CHLORIDE 0.9% FLUSH 5 ML FLUSH IV FLUSH SCH ×2 (09:00→20:54)
[2017-09-15] MEDS: POLYETHYLENE GLYCOL 17 GM PKG PEG SCH (09:00)
[2017-09-15] MEDS: CALCIUM/VITAMIN D 250 MG/125 U TAB PO SCH ×3 (09:07→18:00)
[2017-09-15] MEDS: SULFAMETHOXAZOLE-TRIMETHOPRIM DS 800-160 MG TAB PEG SCH ×2 (09:07→20:54)
[2017-09-15] MEDS: ASPIRIN 325 MG TAB DOBHOFF SCH (09:08)
[2017-09-15] MEDS: LISINOPRIL 20 MG TAB PO SCH ×2 (09:08→20:54)
[2017-09-15] MEDS: LANSOPRAZOLE SOLUTAB 30 MG TAB NG SCH (09:08)
[2017-09-15] MEDS: INSULIN DETEMIR 100 UNITS/ML VIAL SQ SCH ×2 (09:08→21:00)
[2017-09-15] MEDS: CHOLECALCIFEROL (VIT D3) 5000 UNIT CAP PO SCH (09:08)
[2017-09-15 12:00] VITALS: BP 126/53; PULSE 74; RESP 20; TEMP 97.9; O2SAT 96; O2SAT 99
[2017-09-15 16:00] VITALS: BP 138/62; PULSE 84; RESP 18; TEMP 96.3; O2SAT 96
--- NOTE | 2017-09-15 18:39 | HHI.PR ---
Subjective Remarks Follow up for DKA, hip fracture, large CVA. Patient remains unresponsive to verbal or physical stimuli. Per nursing, she often tries to pull her trach. Afebrile. Objective Vitals Vital Signs Date Time Temp Pulse Resp B/P (MAP) Pulse Ox O2 Delivery O2 Flow Rate FiO2 09/15/17 16:00 96.3 84 18 138/62 (87) 96 09/15/17 12:00 97.9 74 20 126/53 (77) 96 09/15/17 12:00 99 T-piece 5.00 21 09/15/17 08:00 98.9 87 18 149/67 (94) 94 09/15/17 02:00 Nasal Cannula 6.00 21 Humidified 09/15/17 00:00 97.6 79 16 146/68 (94) 93 09/14/17 21:36 90 T-piece 6.00 21 09/14/17 21:34 90 T-piece 6.00 21 09/14/17 20:00 97.4 79 18 145/67 (93) 95 I/O 09/14/17 09/14/17 09/14/17 09/15/17 09/15/17 09/15/17 07:00 15:00 23:00 07:00 15:00 23:00 Intake Total 524 ml 0 ml 1258 ml Output Total 850 ml 650 ml 850 ml 450 ml Balance -326 ml -650 ml 408 ml -450 ml Intake Oral 0 ml 0 ml 0 ml Tube Feeding 424 ml 958 ml Tube Irrigant 100 ml 300 ml Output Urine Total 850 ml 650 ml 850 ml 450 ml # Bowel Movements 3 0 1 Result Diagram: 09/11/17 0846 09/11/17 0846 Imaging Last Impressions Chest X-Ray 08/28/17 0600 Signed Impressions: Service Date/Time: August 06:28 - CONCLUSION: No significant change. Bilateral airspace disease and effusions remain. Jose R Casanova MD Thoracentesis 08/05/17 1535 Signed Impressions: Service Date/Time: Saturday, August 05, 2017 16:08 - CONCLUSION: Uncomplicated CT-guided thoracentesis. Sage Adler MD Chest Ultrasound 08/02/17 0000 Signed Impressions: Service Date/Time: Tuesday, August 01, 2017 22:06 - CONCLUSION: 1. Moderate right pleural effusion, as above. Alejo De La Vega MD Hip and Pelvis X-Ray 07/09/17 0000 Signed Impressions: Service Date/Time: Sunday, July 09, 2017 14:04 - CONCLUSION: Anatomic alignment. Ricardo Middleton MD FACR Liver Ultrasound 06/19/17 0000 Signed Impressions: Service Date/Time: June 13:20 - CONCLUSION: 1. Mildly increased echotexture of the liver characteristic of hepatic steatosis. 2. Gallbladder sludge. Obdulio Sam MD Abdomen X-Ray 06/16/17 0000 Signed Impressions: Service Date/Time: Friday, June 16, 2017 04:48 - CONCLUSION: 1. Continued small bowel ileus. There has been no significant change when compared to the prior exam. Toy Duran MD Head CT 05/15/17 0000 Signed Impressions: Service Date/Time: May 19:59 - CONCLUSION: 1. 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 2. No bleed or new/acute infarct. Obdulio Simms MD Gall Bladder Ultrasound 05/08/17 0000 Signed Impressions: Service Date/Time: May 08:23 - CONCLUSION: Focally unremarkable appearance of the gallbladder Obdulio Chun MD Abdomen/Pelvis CT 05/07/17 0000 Signed Impressions: Service Date/Time: Sunday, May 07, 2017 13:23 - CONCLUSION: 1. Large left pneumothorax. 2. Bilateral lower lobe consolidation and bilateral moderate size pleural effusions. 3. Significant soft tissue thickening of the right lateral chest wall and left gluteus muscle. 4. Mild ascites. The findings were called to Dr. Carney. Deangelo Zamora MD Chest CT 04/30/17 0000 Signed Impressions: Service Date/Time: Sunday, April 30, 2017 09:20 - CONCLUSION: 1. Bilateral pulmonary infiltrates more pronounced within the lower lobes with tiny bilateral pleural effusions. Material seen filling the lower lobe bronchi bilaterally either related to purulent material or perhaps mucus plugging. Deangelo Wren Jr., MD Carotid Artery Ultrasound 04/24/17 0000 Signed Impressions: Service Date/Time: April 09:45 - CONCLUSION: 1. No hemodynamically significant carotid artery stenosis. Arnie Middleton MD Hip X-Ray 04/21/17 0000 Signed Impressions: Service Date/Time: Friday, April 21, 2017 11:36 - CONCLUSION: Fluoroscopic images during placement of intramedullary siomara left femur. Benja Ramsey MD Objective Remarks GENERAL: Unresponsive to verbal pr physical stimuli. SKIN: Warm and dry. HEAD: Normocephalic. EYES: No scleral icterus. No injection or drainage. NECK: Supple, trachea midline. No JVD or lymphadenopathy. CARDIOVASCULAR: Regular rate and rhythm without murmurs, gallops, or rubs. RESPIRATORY: Breath sounds equal bilaterally. No accessory muscle use. GASTROINTESTINAL: Abdomen soft, non-tender, nondistended. MUSCULOSKELETAL: No cyanosis, or edema. BACK: Nontender without obvious deformity. No CVA tenderness. Procedures echo 04/24/2017 The left ventricular systolic function is low normal with an estimated ejection fraction in the range of 50- 55%. Mild concentric left ventricular hypertrophy. Normal left ventricular size. [id number] mitral valve regurgitation. A/P Problem List: (1) Acute ischemic left middle cerebral artery (MCA) stroke ICD Code: I63.512 - Cerebral infarction due to unspecified occlusion or stenosis of left middle cerebral artery Status: Acute (2) Acute respiratory failure ICD Code: J96.00 - Acute respiratory failure, unspecified whether with hypoxia or hypercapnia (3) Right hemiplegia ICD Code: G81.91 - Hemiplegia, unspecified affecting right dominant side Status: Acute (4) Sacral decubitus ulcer ICD Code: L89.159 - Pressure ulcer of sacral region, unspecified stage Status: Chronic Assessment and Plan 77 y/o female with HTN, DM admitted for DKA and hip fracture s/p large CVA. 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 Diabetes mellitus type 2 Continue Levemir 12 units Q12hrs. Insulin sliding scale Glucerna 1.5 for tube feed. Subcutaneous hip fracture Surgically repaired 04/21/17 No further need for monitoring Hypertension Continue present treatments - Amlodipine 10mg Qday. Reduce Lisinopril from 40mg Q12 to Qday. Serum K+ was 5.1 on 09/11/2017. Lisinopril should be not used more than 40mg Qday for this patient. 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
--- NOTE | 2017-09-15 19:13 | HHI.PR ---
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 opens eyes, No new complaint no fever had brief episode of bradycardia, recovered spontaneously. Objective Vital Signs Vital Signs Date Time Temp Pulse Resp B/P (MAP) Pulse Ox O2 Delivery O2 Flow Rate FiO2 09/15/17 16:00 96.3 84 18 138/62 (87) 96 09/15/17 12:00 97.9 74 20 126/53 (77) 96 09/15/17 12:00 99 T-piece 5.00 21 09/15/17 08:00 98.9 87 18 149/67 (94) 94 09/15/17 02:00 Nasal Cannula 6.00 21 Humidified 09/15/17 00:00 97.6 79 16 146/68 (94) 93 09/14/17 21:36 90 T-piece 6.00 21 09/14/17 21:34 90 T-piece 6.00 21 09/14/17 20:00 97.4 79 18 145/67 (93) 95 I/O 09/14/17 09/14/17 09/14/17 09/15/17 09/15/17 09/15/17 07:00 15:00 23:00 07:00 15:00 23:00 Intake Total 524 ml 0 ml 1258 ml Output Total 850 ml 650 ml 850 ml 450 ml Balance -326 ml -650 ml 408 ml -450 ml Intake Oral 0 ml 0 ml 0 ml Tube Feeding 424 ml 958 ml Tube Irrigant 100 ml 300 ml Output Urine Total 850 ml 650 ml 850 ml 450 ml # Bowel Movements 3 0 1 Result Diagram: 09/11/1746 09/11/1746 Objective Remarks GENERAL: Elderly female,NAD SKIN: Warm and dry. HEAD: Normocephalic. EYES: No scleral icterus. No injection or drainage. NECK: Supple, trachea midline. No JVD or lymphadenopathy. CARDIOVASCULAR: Regular rate and rhythm without murmurs, gallops, or rubs. RESPIRATORY: Breath sounds equal bilaterally. No accessory muscle use. GASTROINTESTINAL: Abdomen soft, non-tender, nondistended. MUSCULOSKELETAL: No cyanosis, or edema. BACK: Nontender without obvious deformity. No CVA tenderness. A/P Assessment and Plan RF,S/P Trach CVA Pneumonia Pleural effusion Pseudomonas Tracheobronchitis, ? colonisation PLAN: Cont trach collar Aerosol nebs Supplement 02 Trach care TF Available prn over weekend. Chris Rizo MD Sep 15, 2017 19:13
[2017-09-15 20:00] VITALS: BP 140/66; PULSE 83; RESP 18; TEMP 96.4; O2SAT 95
[2017-09-16] VITALS (9 sets, daily range): BP systolic 109–160; BP diastolic 58–68; PULSE 85–95; RESP 17–20; TEMP 96.1–100.7; O2SAT 94–99
[2017-09-16] MEDS: HEPARIN SODIUM - SQ 10,000 UNITS/ML VIAL SQ SCH ×3 (04:38→22:00)
[2017-09-16] MEDS: ARTIFICIAL TEARS OPTH SOLN 15 ML BTL EACH EYE SCH ×3 (04:38→22:00)
[2017-09-16] MEDS: INSULIN ASPART SUPPLEMENTAL SCALE SQ SCH ×3 (04:38→18:11)
[2017-09-16] MEDS: ASPIRIN 325 MG TAB DOBHOFF SCH (08:42)
[2017-09-16] MEDS: CHOLECALCIFEROL (VIT D3) 5000 UNIT CAP PO SCH (08:42)
[2017-09-16] MEDS: LISINOPRIL 20 MG TAB PO SCH (08:43)
[2017-09-16] MEDS: LANSOPRAZOLE SOLUTAB 30 MG TAB NG SCH (08:43)
[2017-09-16] MEDS: SULFAMETHOXAZOLE-TRIMETHOPRIM DS 800-160 MG TAB PEG SCH ×2 (08:43→21:00)
[2017-09-16] MEDS: CALCIUM/VITAMIN D 250 MG/125 U TAB PO SCH ×3 (08:43→18:07)
[2017-09-16] MEDS: INSULIN DETEMIR 100 UNITS/ML VIAL SQ SCH ×2 (08:44→21:00)
[2017-09-16] MEDS: BENEPROTEIN POWDER 1 PACK G-TUBE SCH ×3 (08:56→18:00)
[2017-09-16] MEDS: POLYETHYLENE GLYCOL 17 GM PKG PEG SCH (09:00)
[2017-09-16] MEDS: SODIUM CHLORIDE 0.9% FLUSH 5 ML FLUSH IV FLUSH SCH ×2 (09:00→21:00)
[2017-09-16 09:02] LABS: BICARBONATE 29.7 MEQ/L (21.0-32.0); CALCIUM 10.4 MG/DL (8.5-10.1); CREATININE 0.96 MG/DL (0.50-1.00)
[2017-09-16] MEDS ORDERED: SODIUM POLYSTYRENE SULFONATE SUSP 15 GM/60 ML CUP PO ONE (10:45)
[2017-09-16] MEDS ORDERED: ACETAMINOPHEN 500 MG CPLT PEG PRN (16:15)
--- NOTE | 2017-09-16 17:19 | HHI.PR ---
Subjective Remarks Follow up for DKA, hip fracture, large CVA. Patient remains non-verbal. She had low grade fever today (100.7). Objective Vitals Vital Signs Date Time Temp Pulse Resp B/P (MAP) Pulse Ox O2 Delivery O2 Flow Rate FiO2 09/16/17 16:00 100.7 87 20 135/61 (85) 96 09/16/17 12:00 99.0 95 18 138/65 (89) 96 09/16/17 09:10 99 Trach Collar 21 09/16/17 08:50 94 Mechanical Ventilator 6.00 21 Trach Collar Humidified 09/16/17 08:00 99.8 89 20 160/68 (98) 95 09/16/17 04:51 94 T-piece 6.00 21 09/16/17 04:51 94 T-piece 6.00 21 09/16/17 00:56 90 Trach Collar 6.00 T-Piece 09/16/17 00:00 96.1 85 18 148/60 (89) 95 09/15/17 20:00 96.4 83 18 140/66 (90) 95 I/O 09/15/17 09/15/17 09/15/17 09/16/17 09/16/17 09/16/17 06:59 14:59 22:59 06:59 14:59 22:59 Intake Total 1258 ml Output Total 850 ml 450 ml Balance 408 ml -450 ml Intake Oral 0 ml Tube Feeding 958 ml Tube Irrigant 300 ml Output Urine Total 850 ml 450 ml # Bowel Movements 1 Result Diagram: 09/16/17 0822 Imaging Last Impressions Chest X-Ray 08/28/17 0600 Signed Impressions: Service Date/Time: August 06:28 - CONCLUSION: No significant change. Bilateral airspace disease and effusions remain. Jose R Casanova MD Thoracentesis 08/05/17 1535 Signed Impressions: Service Date/Time: Saturday, August 05, 2017 16:08 - CONCLUSION: Uncomplicated CT-guided thoracentesis. Sage Adler MD Chest Ultrasound 08/02/17 0000 Signed Impressions: Service Date/Time: Tuesday, August 01, 2017 22:06 - CONCLUSION: 1. Moderate right pleural effusion, as above. Alejo De La Vega MD Hip and Pelvis X-Ray 07/09/17 0000 Signed Impressions: Service Date/Time: Sunday, July 09, 2017 14:04 - CONCLUSION: Anatomic alignment. Ricardo Middleton MD FACR Liver Ultrasound 06/19/17 0000 Signed Impressions: Service Date/Time: June 13:20 - CONCLUSION: 1. Mildly increased echotexture of the liver characteristic of hepatic steatosis. 2. Gallbladder sludge. Obdulio Sam MD Abdomen X-Ray 06/16/17 0000 Signed Impressions: Service Date/Time: Friday, June 16, 2017 04:48 - CONCLUSION: 1. Continued small bowel ileus. There has been no significant change when compared to the prior exam. Toy Duran MD Head CT 05/15/17 0000 Signed Impressions: Service Date/Time: May 19:59 - CONCLUSION: 1. 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 2. No bleed or new/acute infarct. Obdulio Simms MD Gall Bladder Ultrasound 05/08/17 0000 Signed Impressions: Service Date/Time: May 08:23 - CONCLUSION: Focally unremarkable appearance of the gallbladder Obdulio Chun MD Abdomen/Pelvis CT 05/07/17 0000 Signed Impressions: Service Date/Time: Sunday, May 07, 2017 13:23 - CONCLUSION: 1. Large left pneumothorax. 2. Bilateral lower lobe consolidation and bilateral moderate size pleural effusions. 3. Significant soft tissue thickening of the right lateral chest wall and left gluteus muscle. 4. Mild ascites. The findings were called to Dr. Carney. Deangelo Zamora MD Chest CT 04/30/17 0000 Signed Impressions: Service Date/Time: Sunday, April 30, 2017 09:20 - CONCLUSION: 1. Bilateral pulmonary infiltrates more pronounced within the lower lobes with tiny bilateral pleural effusions. Material seen filling the lower lobe bronchi bilaterally either related to purulent material or perhaps mucus plugging. Deangelo Wren Jr., MD Carotid Artery Ultrasound 04/24/17 0000 Signed Impressions: Service Date/Time: April 09:45 - CONCLUSION: 1. No hemodynamically significant carotid artery stenosis. Arnie Middleton MD Hip X-Ray 04/21/17 0000 Signed Impressions: Service Date/Time: Friday, April 21, 2017 11:36 - CONCLUSION: Fluoroscopic images during placement of intramedullary siomara left femur. Benja Ramsey MD Objective Remarks GENERAL: Unresponsive to verbal pr physical stimuli. SKIN: Warm and dry. HEAD: Normocephalic. EYES: No scleral icterus. No injection or drainage. NECK: Supple, trachea midline. No JVD or lymphadenopathy. CARDIOVASCULAR: Regular rate and rhythm without murmurs, gallops, or rubs. RESPIRATORY: Breath sounds equal bilaterally. No accessory muscle use. GASTROINTESTINAL: Abdomen soft, non-tender, nondistended. MUSCULOSKELETAL: No cyanosis, or edema. BACK: Nontender without obvious deformity. No CVA tenderness. Procedures echo 04/24/2017 The left ventricular systolic function is low normal with an estimated ejection fraction in the range of 50- 55%. Mild concentric left ventricular hypertrophy. Normal left ventricular size. [id number] mitral valve regurgitation. A/P Problem List: (1) Acute ischemic left middle cerebral artery (MCA) stroke ICD Code: I63.512 - Cerebral infarction due to unspecified occlusion or stenosis of left middle cerebral artery Status: Acute (2) Acute respiratory failure ICD Code: J96.00 - Acute respiratory failure, unspecified whether with hypoxia or hypercapnia (3) Right hemiplegia ICD Code: G81.91 - Hemiplegia, unspecified affecting right dominant side Status: Acute (4) Sacral decubitus ulcer ICD Code: L89.159 - Pressure ulcer of sacral region, unspecified stage Status: Chronic Assessment and Plan 77 y/o female with HTN, DM admitted for DKA and hip fracture s/p large CVA. Fever: 100.7 today. We will give PRN acetaminophen. If persistent, we will obtain CXR, UA. We will obtain labs in the AM. 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 Diabetes mellitus type 2 Continue Levemir 12 units Q12hrs. Insulin sliding scale Glucerna 1.5 for tube feed. Subcutaneous hip fracture Surgically repaired 04/21/17 No further need for monitoring Hypertension Continue present treatments - Amlodipine 10mg Qday. Reduce Lisinopril from 40mg Q12 to Qday. Serum K+ was 5.1 on 09/11/2017. Lisinopril should be not used more than 40mg Qday for this patient. 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
--- NOTE | 2017-09-16 19:11 | HHI.PR ---
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 opens eyes, No new complaint no fever Objective Vital Signs Vital Signs Date Time Temp Pulse Resp B/P (MAP) Pulse Ox O2 Delivery O2 Flow Rate FiO2 09/16/17 17:52 96 T-piece 6.00 21 09/16/17 17:51 96 T-piece 6.00 21 09/16/17 16:00 100.7 87 20 135/61 (85) 96 09/16/17 12:00 99.0 95 18 138/65 (89) 96 09/16/17 09:10 99 Trach Collar 21 09/16/17 08:50 94 Mechanical Ventilator 6.00 21 Trach Collar Humidified 09/16/17 08:00 99.8 89 20 160/68 (98) 95 09/16/17 04:51 94 T-piece 6.00 21 09/16/17 04:51 94 T-piece 6.00 21 09/16/17 00:56 90 Trach Collar 6.00 T-Piece 09/16/17 00:00 96.1 85 18 148/60 (89) 95 09/15/17 20:00 96.4 83 18 140/66 (90) 95 I/O 09/15/17 09/15/17 09/15/17 09/16/17 09/16/17 09/16/17 07:00 15:00 23:00 07:00 15:00 23:00 Intake Total 1258 ml 540 ml Output Total 850 ml 450 ml 500 ml Balance 408 ml -450 ml 40 ml Intake Oral 0 ml Tube Feeding 958 ml 540 ml Tube Irrigant 300 ml Output Urine Total 850 ml 450 ml 500 ml # Bowel Movements 1 2 Result Diagram: 09/16/17821 Objective Remarks GENERAL: Elderly female,NAD SKIN: Warm and dry. HEAD: Normocephalic. EYES: No scleral icterus. No injection or drainage. NECK: Supple, trachea midline. No JVD or lymphadenopathy. CARDIOVASCULAR: Regular rate and rhythm without murmurs, gallops, or rubs. RESPIRATORY: Breath sounds equal bilaterally. No accessory muscle use. GASTROINTESTINAL: Abdomen soft, non-tender, nondistended. MUSCULOSKELETAL: No cyanosis, or edema. BACK: Nontender without obvious deformity. No CVA tenderness. A/P Assessment and Plan RF,S/P Trach CVA Pneumonia Pleural effusion Pseudomonas Tracheobronchitis, ? colonisation PLAN: Cont trach collar Aerosol nebs Supplement 02 Trach care TF Chris Rizo MD Sep 16, 2017 19:11
[2017-09-17] VITALS (8 sets, daily range): BP systolic 121–159; BP diastolic 58–71; PULSE 82–93; RESP 16–19; TEMP 96.2–99.1; O2SAT 93–95
[2017-09-17] MEDS: INSULIN ASPART SUPPLEMENTAL SCALE SQ SCH ×4 (00:24→18:10)
[2017-09-17] MEDS: HEPARIN SODIUM - SQ 10,000 UNITS/ML VIAL SQ SCH ×3 (06:17→21:16)
[2017-09-17] MEDS: ARTIFICIAL TEARS OPTH SOLN 15 ML BTL EACH EYE SCH ×3 (06:20→21:17)
[2017-09-17] MEDS: SODIUM CHLORIDE 0.9% FLUSH 5 ML FLUSH IV FLUSH PRN (08:48)
[2017-09-17] MEDS: INSULIN DETEMIR 100 UNITS/ML VIAL SQ SCH ×2 (08:48→21:17)
[2017-09-17] MEDS: CALCIUM/VITAMIN D 250 MG/125 U TAB PO SCH ×3 (09:00→18:10)
[2017-09-17] MEDS: LISINOPRIL 20 MG TAB PO SCH (09:00)
[2017-09-17] MEDS: SODIUM CHLORIDE 0.9% FLUSH 5 ML FLUSH IV FLUSH SCH ×2 (09:00→21:00)
[2017-09-17] MEDS: SULFAMETHOXAZOLE-TRIMETHOPRIM DS 800-160 MG TAB PEG SCH ×2 (09:00→21:14)
[2017-09-17] MEDS: ASPIRIN 325 MG TAB DOBHOFF SCH (09:00)
[2017-09-17] MEDS: POLYETHYLENE GLYCOL 17 GM PKG PEG SCH (09:00)
[2017-09-17] MEDS: LANSOPRAZOLE SOLUTAB 30 MG TAB NG SCH (09:00)
[2017-09-17] MEDS: CHOLECALCIFEROL (VIT D3) 5000 UNIT CAP PO SCH (09:00)
[2017-09-17] MEDS: BENEPROTEIN POWDER 1 PACK G-TUBE SCH ×3 (09:00→18:00)
--- NOTE | 2017-09-17 09:33 | HHI.PR ---
Subjective Remarks Follow up for DKA, hip fracture, large CVA. Patient remains non-verbal. Afebrile. Tolerating tube feed. Objective Vitals Vital Signs Date Time Temp Pulse Resp B/P (MAP) Pulse Ox O2 Delivery O2 Flow Rate FiO2 09/17/17 08:50 96 Mechanical Ventilator 6.00 21 Trach Collar T-Piece Humidified 09/17/17 08:00 97.5 93 19 153/68 (96) 93 09/17/17 04:15 94 T-piece 6.00 21 09/17/17 04:15 94 T-piece 6.00 21 09/17/17 00:10 97.8 82 17 142/65 (90) 94 09/16/17 21:30 94 Trach Collar 6.00 21 09/16/17 20:00 96.6 85 17 109/58 (75) 96 09/16/17 17:52 96 T-piece 6.00 21 09/16/17 17:51 96 T-piece 6.00 21 09/16/17 16:00 100.7 87 20 135/61 (85) 96 09/16/17 12:00 99.0 95 18 138/65 (89) 96 I/O 09/16/17 09/16/17 09/16/17 09/17/17 09/17/17 09/17/17 07:00 15:00 23:00 07:00 15:00 23:00 Intake Total 540 ml 836 ml Output Total 500 ml 700 ml 0 ml Balance 40 ml -700 ml 836 ml Tube Feeding 540 ml 636 ml Other 200 ml Output Urine Total 500 ml 700 ml Tube Feeding Residual Discard 0 ml # Bowel Movements 2 1 Result Diagram: 09/16/17 0822 Imaging Last Impressions Chest X-Ray 08/28/17 0600 Signed Impressions: Service Date/Time: August 06:28 - CONCLUSION: No significant change. Bilateral airspace disease and effusions remain. Jose R Casanova MD Thoracentesis 08/05/17 1535 Signed Impressions: Service Date/Time: Saturday, August 05, 2017 16:08 - CONCLUSION: Uncomplicated CT-guided thoracentesis. Sage Adler MD Chest Ultrasound 08/02/17 0000 Signed Impressions: Service Date/Time: Tuesday, August 01, 2017 22:06 - CONCLUSION: 1. Moderate right pleural effusion, as above. Alejo De La Vega MD Hip and Pelvis X-Ray 07/09/17 0000 Signed Impressions: Service Date/Time: Sunday, July 09, 2017 14:04 - CONCLUSION: Anatomic alignment. Ricardo Middleton MD FACR Liver Ultrasound 06/19/17 0000 Signed Impressions: Service Date/Time: June 13:20 - CONCLUSION: 1. Mildly increased echotexture of the liver characteristic of hepatic steatosis. 2. Gallbladder sludge. Obdulio Sam MD Abdomen X-Ray 06/16/17 0000 Signed Impressions: Service Date/Time: Friday, June 16, 2017 04:48 - CONCLUSION: 1. Continued small bowel ileus. There has been no significant change when compared to the prior exam. Toy Duran MD Head CT 05/15/17 0000 Signed Impressions: Service Date/Time: May 19:59 - CONCLUSION: 1. 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 2. No bleed or new/acute infarct. Obdulio Simms MD Gall Bladder Ultrasound 05/08/17 0000 Signed Impressions: Service Date/Time: May 08:23 - CONCLUSION: Focally unremarkable appearance of the gallbladder Obdulio Chun MD Abdomen/Pelvis CT 05/07/17 0000 Signed Impressions: Service Date/Time: Sunday, May 07, 2017 13:23 - CONCLUSION: 1. Large left pneumothorax. 2. Bilateral lower lobe consolidation and bilateral moderate size pleural effusions. 3. Significant soft tissue thickening of the right lateral chest wall and left gluteus muscle. 4. Mild ascites. The findings were called to Dr. Carney. Deangelo Zamora MD Chest CT 04/30/17 0000 Signed Impressions: Service Date/Time: Sunday, April 30, 2017 09:20 - CONCLUSION: 1. Bilateral pulmonary infiltrates more pronounced within the lower lobes with tiny bilateral pleural effusions. Material seen filling the lower lobe bronchi bilaterally either related to purulent material or perhaps mucus plugging. Deangelo Wren Jr., MD Carotid Artery Ultrasound 04/24/17 0000 Signed Impressions: Service Date/Time: April 09:45 - CONCLUSION: 1. No hemodynamically significant carotid artery stenosis. Arnie Middleton MD Hip X-Ray 04/21/17 0000 Signed Impressions: Service Date/Time: Friday, April 21, 2017 11:36 - CONCLUSION: Fluoroscopic images during placement of intramedullary siomara left femur. Benja Ramsey MD Objective Remarks GENERAL: Unresponsive to verbal pr physical stimuli. SKIN: Warm and dry. HEAD: Normocephalic. EYES: No scleral icterus. No injection or drainage. NECK: Supple, trachea midline. No JVD or lymphadenopathy. CARDIOVASCULAR: Regular rate and rhythm without murmurs, gallops, or rubs. RESPIRATORY: Breath sounds equal bilaterally. No accessory muscle use. GASTROINTESTINAL: Abdomen soft, non-tender, nondistended. MUSCULOSKELETAL: No cyanosis, or edema. BACK: Nontender without obvious deformity. No CVA tenderness. Procedures echo 04/24/2017 The left ventricular systolic function is low normal with an estimated ejection fraction in the range of 50- 55%. Mild concentric left ventricular hypertrophy. Normal left ventricular size. [id number] mitral valve regurgitation. A/P Problem List: (1) Acute ischemic left middle cerebral artery (MCA) stroke ICD Code: I63.512 - Cerebral infarction due to unspecified occlusion or stenosis of left middle cerebral artery Status: Acute (2) Acute respiratory failure ICD Code: J96.00 - Acute respiratory failure, unspecified whether with hypoxia or hypercapnia (3) Right hemiplegia ICD Code: G81.91 - Hemiplegia, unspecified affecting right dominant side Status: Acute (4) Sacral decubitus ulcer ICD Code: L89.159 - Pressure ulcer of sacral region, unspecified stage Status: Chronic Assessment and Plan 77 y/o female with HTN, DM admitted for DKA and hip fracture s/p large CVA. Hypernatremia Hyperkalemia - s/p Kayexalate on09/16/2017. - Increased free water flushes. - BMP pending this morning. 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 Diabetes mellitus type 2 Continue Levemir 12 units Q12hrs. Insulin sliding scale Glucerna 1.5 for tube feed. Subcutaneous hip fracture Surgically repaired 04/21/17 No further need for monitoring Hypertension Continue present treatments - Amlodipine 10mg Qday. Reduce Lisinopril from 40mg Q12 to Qday. Serum K+ was 5.1 on 09/11/2017. Lisinopril should be not used more than 40mg Qday for this patient. 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
[2017-09-17 12:42] LABS: AUTOMATED NEUTROPHIL # 8.4 TH/MM3 (1.8-7.7); BASOPHIL # 0.1 TH/MM3 (0-0.2); BASOPHIL % 0.6 % (0.0-2.0); EOSINOPHIL # 0.1 TH/MM3 (0-0.4); EOSINOPHIL % 0.7 % (0.0-4.0); HEMATOCRIT 36.1 % (35.0-46.0); HEMOGLOBIN 11.9 GM/DL (11.6-15.3); LYMPHOCYTE # 2.1 TH/MM3 (1.0-4.8); MEAN CELL VOLUME 99.1 FL (80.0-100.0); MEAN CORPUSCULAR HEMOGLOBIN 32.5 PG (27.0-34.0); MEAN CORPUSCULAR HGB CONC 32.8 % (32.0-36.0); MEAN PLATELET VOLUME 10.1 FL (7.0-11.0); MONO % 4.7 % (0.0-8.0); MONOCYTE # 0.5 TH/MM3 (0-0.9); PLATELET COUNT 277 TH/MM3 (150-450); RED BLOOD COUNT 3.65 MIL/MM3 (4.00-5.30); RED CELL DISTRIBUTION WIDTH 15.1 % (11.6-17.2); WHITE BLOOD COUNT 11.1 TH/MM3 (4.0-11.0)
[2017-09-17 13:09] LABS: BICARBONATE 30.5 MEQ/L (21.0-32.0); CALCIUM 9.6 MG/DL (8.5-10.1); CREATININE 0.93 MG/DL (0.50-1.00)
--- NOTE | 2017-09-17 18:28 | HHI.PR ---
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 opens eyes, No new complaint no fever Awake, looks around Objective Vital Signs Vital Signs Date Time Temp Pulse Resp B/P (MAP) Pulse Ox O2 Delivery O2 Flow Rate FiO2 09/17/17 16:00 97.7 85 16 121/58 (79) 95 09/17/17 15:25 95 T-piece 21 09/17/17 15:25 95 T-piece 21 09/17/17 12:00 99.1 90 16 159/71 (100) 93 09/17/17 08:50 96 Mechanical Ventilator 6.00 21 Trach Collar T-Piece Humidified 09/17/17 08:00 97.5 93 19 153/68 (96) 93 09/17/17 04:15 94 T-piece 6.00 21 09/17/17 04:15 94 T-piece 6.00 21 09/17/17 00:10 97.8 82 17 142/65 (90) 94 09/16/17 21:30 94 Trach Collar 6.00 21 09/16/17 20:00 96.6 85 17 109/58 (75) 96 I/O 09/16/17 09/16/17 09/16/17 09/17/17 09/17/17 09/17/17 07:00 15:00 23:00 07:00 15:00 23:00 Intake Total 540 ml 836 ml 580 ml Output Total 500 ml 700 ml 0 ml Balance 40 ml -700 ml 836 ml 580 ml Tube Feeding 540 ml 636 ml 380 ml Other 200 ml 200 ml Output Urine Total 500 ml 700 ml Tube Feeding Residual Discard 0 ml # Bowel Movements 2 1 Result Diagram: 09/17/17 1217 09/17/17 1217 Objective Remarks GENERAL: Elderly female,NAD SKIN: Warm and dry. HEAD: Normocephalic. EYES: No scleral icterus. No injection or drainage. NECK: Supple, trachea midline. No JVD or lymphadenopathy. CARDIOVASCULAR: Regular rate and rhythm without murmurs, gallops, or rubs. RESPIRATORY: Breath sounds equal bilaterally. No accessory muscle use. GASTROINTESTINAL: Abdomen soft, non-tender, nondistended. MUSCULOSKELETAL: No cyanosis, or edema. BACK: Nontender without obvious deformity. No CVA tenderness. A/P Assessment and Plan RF,S/P Trach CVA Pneumonia Pleural effusion Pseudomonas Tracheobronchitis, ? colonisation PLAN: Cont trach collar Aerosol nebs Supplement 02 Trach care TF Chris Rizo MD Sep 17, 2017 18:28
[2017-09-18] VITALS (8 sets, daily range): BP systolic 135–154; BP diastolic 61–71; PULSE 77–86; RESP 16–21; TEMP 95.5–98.4; O2SAT 94–100
[2017-09-18] MEDS: INSULIN ASPART SUPPLEMENTAL SCALE SQ SCH ×4 (00:02→17:34)
[2017-09-18] MEDS: HEPARIN SODIUM - SQ 10,000 UNITS/ML VIAL SQ SCH ×3 (05:23→21:44)
[2017-09-18] MEDS: ARTIFICIAL TEARS OPTH SOLN 15 ML BTL EACH EYE SCH ×3 (05:23→21:44)
[2017-09-18] MEDS: SULFAMETHOXAZOLE-TRIMETHOPRIM DS 800-160 MG TAB PEG SCH ×2 (07:52→21:43)
[2017-09-18] MEDS: CHOLECALCIFEROL (VIT D3) 5000 UNIT CAP PO SCH (07:52)
[2017-09-18] MEDS: CALCIUM/VITAMIN D 250 MG/125 U TAB PO SCH ×3 (07:52→17:33)
[2017-09-18] MEDS: ASPIRIN 325 MG TAB DOBHOFF SCH (07:52)
[2017-09-18] MEDS: BENEPROTEIN POWDER 1 PACK G-TUBE SCH ×3 (07:52→17:33)
[2017-09-18] MEDS: POLYETHYLENE GLYCOL 17 GM PKG PEG SCH (07:52)
[2017-09-18] MEDS: LISINOPRIL 20 MG TAB PO SCH (07:53)
[2017-09-18] MEDS: SODIUM CHLORIDE 0.9% FLUSH 5 ML FLUSH IV FLUSH SCH ×2 (07:53→21:00)
[2017-09-18] MEDS: LANSOPRAZOLE SOLUTAB 30 MG TAB NG SCH (07:53)
[2017-09-18] MEDS: INSULIN DETEMIR 100 UNITS/ML VIAL SQ SCH ×2 (07:54→21:44)
--- NOTE | 2017-09-18 15:26 | HHI.PR ---
Subjective Remarks Follow up for DKA, hip fracture, large CVA. Eyes open but remains unresponsive. Afebrile. Tolerating tube feed. Objective Vitals Vital Signs Date Time Temp Pulse Resp B/P (MAP) Pulse Ox O2 Delivery O2 Flow Rate FiO2 09/18/17 12:00 96.0 81 18 139/65 (89) 100 09/18/17 09:41 97 T-piece 21 09/18/17 09:40 97 T-piece 21 09/18/17 09:10 Trach Collar 6.00 21 09/18/17 08:00 97.2 86 18 152/70 (97) 96 09/18/17 04:43 97 T-piece 6.00 21 09/18/17 00:00 98.4 86 18 154/71 (98) 96 09/17/17 22:03 95 T-piece 6.00 21 09/17/17 21:30 95 Trach Collar 6.00 21 09/17/17 20:00 96.2 87 17 133/63 (86) 95 09/17/17 16:00 97.7 85 16 121/58 (79) 95 09/17/17 15:25 95 T-piece 21 09/17/17 15:25 95 T-piece 21 I/O 09/17/17 09/17/17 09/17/17 09/18/17 09/18/17 09/18/17 07:00 15:00 23:00 07:00 15:00 23:00 Intake Total 836 ml 580 ml Output Total 700 ml 0 ml 1250 ml 1200 ml 3.0 ml Balance -700 ml 836 ml -670 ml -1200 ml -3.0 ml Intake Oral 0 ml Tube Feeding 636 ml 380 ml Other 200 ml 200 ml Output Urine Total 700 ml 1250 ml 1200 ml Tube Feeding Residual Discard 0 ml 3.0 ml # Bowel Movements 1 0 Result Diagram: 09/17/17 1217 09/17/17 1217 Imaging Last Impressions Chest X-Ray 08/28/17 0600 Signed Impressions: Service Date/Time: August 06:28 - CONCLUSION: No significant change. Bilateral airspace disease and effusions remain. Jose R Casanova MD Thoracentesis 08/05/17 1535 Signed Impressions: Service Date/Time: Saturday, August 05, 2017 16:08 - CONCLUSION: Uncomplicated CT-guided thoracentesis. Sage Adler MD Chest Ultrasound 08/02/17 0000 Signed Impressions: Service Date/Time: Tuesday, August 01, 2017 22:06 - CONCLUSION: 1. Moderate right pleural effusion, as above. Alejo De La Vega MD Hip and Pelvis X-Ray 07/09/17 0000 Signed Impressions: Service Date/Time: Sunday, July 09, 2017 14:04 - CONCLUSION: Anatomic alignment. Ricardo Middleton MD FACR Liver Ultrasound 06/19/17 0000 Signed Impressions: Service Date/Time: June 13:20 - CONCLUSION: 1. Mildly increased echotexture of the liver characteristic of hepatic steatosis. 2. Gallbladder sludge. Obdulio Sam MD Abdomen X-Ray 06/16/17 0000 Signed Impressions: Service Date/Time: Friday, June 16, 2017 04:48 - CONCLUSION: 1. Continued small bowel ileus. There has been no significant change when compared to the prior exam. Toy Duran MD Head CT 05/15/17 0000 Signed Impressions: Service Date/Time: May 19:59 - CONCLUSION: 1. 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 2. No bleed or new/acute infarct. Obdulio Simms MD Gall Bladder Ultrasound 05/08/17 0000 Signed Impressions: Service Date/Time: May 08:23 - CONCLUSION: Focally unremarkable appearance of the gallbladder Obdulio Chun MD Abdomen/Pelvis CT 05/07/17 0000 Signed Impressions: Service Date/Time: Sunday, May 07, 2017 13:23 - CONCLUSION: 1. Large left pneumothorax. 2. Bilateral lower lobe consolidation and bilateral moderate size pleural effusions. 3. Significant soft tissue thickening of the right lateral chest wall and left gluteus muscle. 4. Mild ascites. The findings were called to Dr. Carney. Deangelo Zamora MD Chest CT 04/30/17 0000 Signed Impressions: Service Date/Time: Sunday, April 30, 2017 09:20 - CONCLUSION: 1. Bilateral pulmonary infiltrates more pronounced within the lower lobes with tiny bilateral pleural effusions. Material seen filling the lower lobe bronchi bilaterally either related to purulent material or perhaps mucus plugging. Deangelo Wren Jr., MD Carotid Artery Ultrasound 04/24/17 0000 Signed Impressions: Service Date/Time: April 09:45 - CONCLUSION: 1. No hemodynamically significant carotid artery stenosis. Arnie Middleton MD Hip X-Ray 04/21/17 0000 Signed Impressions: Service Date/Time: Friday, April 21, 2017 11:36 - CONCLUSION: Fluoroscopic images during placement of intramedullary siomara left femur. Benja Ramsey MD Objective Remarks GENERAL: Unresponsive to verbal pr physical stimuli. SKIN: Warm and dry. HEAD: Normocephalic. EYES: No scleral icterus. No injection or drainage. NECK: Supple, trachea midline. No JVD or lymphadenopathy. CARDIOVASCULAR: Regular rate and rhythm without murmurs, gallops, or rubs. RESPIRATORY: Breath sounds equal bilaterally. No accessory muscle use. GASTROINTESTINAL: Abdomen soft, non-tender, nondistended. MUSCULOSKELETAL: No cyanosis, or edema. BACK: Nontender without obvious deformity. No CVA tenderness. Procedures echo 04/24/2017 The left ventricular systolic function is low normal with an estimated ejection fraction in the range of 50- 55%. Mild concentric left ventricular hypertrophy. Normal left ventricular size. [id number] mitral valve regurgitation. A/P Problem List: (1) Acute ischemic left middle cerebral artery (MCA) stroke ICD Code: I63.512 - Cerebral infarction due to unspecified occlusion or stenosis of left middle cerebral artery Status: Acute (2) Acute respiratory failure ICD Code: J96.00 - Acute respiratory failure, unspecified whether with hypoxia or hypercapnia (3) Right hemiplegia ICD Code: G81.91 - Hemiplegia, unspecified affecting right dominant side Status: Acute (4) Sacral decubitus ulcer ICD Code: L89.159 - Pressure ulcer of sacral region, unspecified stage Status: Chronic Assessment and Plan 77 y/o female with HTN, DM admitted for DKA and hip fracture s/p large CVA. Hypernatremia Hyperkalemia - s/p Kayexalate on09/16/2017. - Increased free water flushes. - Na increased from 147 to 149. Will start D5W 75cc/hour and check BMP tomorrow. - Potassium improved 5.3 --> 4.4. 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 Diabetes mellitus type 2 Continue Levemir 12 units Q12hrs. Insulin sliding scale Glucerna 1.5 for tube feed. Subcutaneous hip fracture Surgically repaired 04/21/17 No further need for monitoring Hypertension Continue present treatments - Amlodipine 10mg Qday. Reduce Lisinopril from 40mg Q12 to Qday. Serum K+ was 5.1 on 09/11/2017. Lisinopril should be not used more than 40mg Qday for this patient. 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
--- NOTE | 2017-09-18 15:50 | HHI.PR ---
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 opens eyes, No new complaint no fever Objective Vital Signs Vital Signs Date Time Temp Pulse Resp B/P (MAP) Pulse Ox O2 Delivery O2 Flow Rate FiO2 09/18/17 12:00 96.0 81 18 139/65 (89) 100 09/18/17 09:41 97 T-piece 21 09/18/17 09:40 97 T-piece 21 09/18/17 09:10 Trach Collar 6.00 21 09/18/17 08:00 97.2 86 18 152/70 (97) 96 09/18/17 04:43 97 T-piece 6.00 21 09/18/17 00:00 98.4 86 18 154/71 (98) 96 09/17/17 22:03 95 T-piece 6.00 21 09/17/17 21:30 95 Trach Collar 6.00 21 09/17/17 20:00 96.2 87 17 133/63 (86) 95 09/17/17 16:00 97.7 85 16 121/58 (79) 95 I/O 09/17/17 09/17/17 09/17/17 09/18/17 09/18/17 09/18/17 07:00 15:00 23:00 07:00 15:00 23:00 Intake Total 836 ml 580 ml Output Total 700 ml 0 ml 1250 ml 1200 ml 3.0 ml Balance -700 ml 836 ml -670 ml -1200 ml -3.0 ml Intake Oral 0 ml Tube Feeding 636 ml 380 ml Other 200 ml 200 ml Output Urine Total 700 ml 1250 ml 1200 ml Tube Feeding Residual Discard 0 ml 3.0 ml # Bowel Movements 1 0 Result Diagram: 09/17/17 1217 09/17/177 Objective Remarks GENERAL: Elderly female,NAD SKIN: Warm and dry. HEAD: Normocephalic. EYES: No scleral icterus. No injection or drainage. NECK: Supple, trachea midline. No JVD or lymphadenopathy. CARDIOVASCULAR: Regular rate and rhythm without murmurs, gallops, or rubs. RESPIRATORY: Breath sounds equal bilaterally. No accessory muscle use. GASTROINTESTINAL: Abdomen soft, non-tender, nondistended. MUSCULOSKELETAL: No cyanosis, or edema. BACK: Nontender without obvious deformity. No CVA tenderness. A/P Assessment and Plan RF,S/P Trach CVA Pneumonia Pleural effusion Pseudomonas Tracheobronchitis, ? colonisation PLAN: Cont trach collar Aerosol nebs Supplement 02 Trach care TF LAI RN at Chris Rizo MD Sep 18, 2017 15:50
[2017-09-18] MEDS: DEXTROSE 5% IN WATE 1000ML INJ 1,000 ML IV SCH (17:33)
[2017-09-19] VITALS: BP 120/66; PULSE 78; RESP 16; TEMP 97.6; O2SAT 97
[2017-09-19] MEDS: INSULIN ASPART SUPPLEMENTAL SCALE SQ SCH ×4 (00:23→17:48)
[2017-09-19] MEDS: HEPARIN SODIUM - SQ 10,000 UNITS/ML VIAL SQ SCH ×3 (05:32→19:41)
[2017-09-19] MEDS: ARTIFICIAL TEARS OPTH SOLN 15 ML BTL EACH EYE SCH ×3 (05:33→19:41)
[2017-09-19 07:30] LABS: BICARBONATE 31.1 MEQ/L (21.0-32.0); CALCIUM 9.1 MG/DL (8.5-10.1); CREATININE 0.79 MG/DL (0.50-1.00)
[2017-09-19 08:00] VITALS: BP 136/91; PULSE 73; RESP 17; TEMP 95.7; O2SAT 96
[2017-09-19] MEDS: SODIUM CHLORIDE 0.9% FLUSH 5 ML FLUSH IV FLUSH SCH ×2 (09:00→19:37)
[2017-09-19] MEDS: POLYETHYLENE GLYCOL 17 GM PKG PEG SCH (09:00)
[2017-09-19] MEDS: ASPIRIN 325 MG TAB DOBHOFF SCH (09:37)
[2017-09-19] MEDS: DEXTROSE 5% IN WATE 1000ML INJ 1,000 ML IV SCH ×2 (09:37→19:40)
[2017-09-19] MEDS: LANSOPRAZOLE SOLUTAB 30 MG TAB NG SCH (09:38)
[2017-09-19] MEDS: BENEPROTEIN POWDER 1 PACK G-TUBE SCH ×3 (09:38→17:48)
[2017-09-19] MEDS: SULFAMETHOXAZOLE-TRIMETHOPRIM DS 800-160 MG TAB PEG SCH ×2 (09:38→19:41)
[2017-09-19] MEDS: CALCIUM/VITAMIN D 250 MG/125 U TAB PO SCH ×3 (09:39→17:48)
[2017-09-19] MEDS: LISINOPRIL 20 MG TAB PO SCH (09:39)
[2017-09-19] MEDS: INSULIN DETEMIR 100 UNITS/ML VIAL SQ SCH ×2 (09:39→20:10)
[2017-09-19] MEDS: CHOLECALCIFEROL (VIT D3) 5000 UNIT CAP PO SCH (09:39)
[2017-09-19 12:00] VITALS: BP 131/63; PULSE 58; RESP 17; TEMP 95.2; O2SAT 94
[2017-09-19 16:00] VITALS: BP 130/61; PULSE 69; RESP 17; TEMP 95.5; O2SAT 93
--- NOTE | 2017-09-19 16:32 | HHI.PR ---
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 No new complaint no fever Objective Vital Signs Vital Signs Date Time Temp Pulse Resp B/P (MAP) Pulse Ox O2 Delivery O2 Flow Rate FiO2 09/19/17 12:00 95.2 58 17 131/63 (85) 94 09/19/17 09:05 96 Trach Collar 6.00 21 09/19/17 08:00 95.7 73 17 136/91 (106) 96 09/19/17 08:00 96 T-piece 21 09/19/17 00:00 97.6 78 16 120/66 (84) 97 09/18/17 21:30 95 Trach Collar 6.00 21 09/18/17 20:00 97.0 77 16 136/61 (86) 94 I/O 09/18/17 09/18/17 09/18/17 09/19/17 09/19/17 09/19/17 07:00 15:00 23:00 07:00 15:00 23:00 Intake Total 0 ml Output Total 1200 ml 3.0 ml 350 ml 800 ml 7.0 ml Balance -1200 ml -3.0 ml -350 ml -800 ml -7.0 ml Intake Oral 0 ml Output Urine Total 1200 ml 350 ml 800 ml Tube Feeding Residual Discard 3.0 ml 7.0 ml # Bowel Movements 0 Result Diagram: 09/17/17 1217 09/19/17 0628 Objective Remarks GENERAL: Elderly female,NAD SKIN: Warm and dry. HEAD: Normocephalic. EYES: No scleral icterus. No injection or drainage. NECK: Supple, trachea midline. No JVD or lymphadenopathy. CARDIOVASCULAR: Regular rate and rhythm without murmurs, gallops, or rubs. RESPIRATORY: Breath sounds equal bilaterally. No accessory muscle use. GASTROINTESTINAL: Abdomen soft, non-tender, nondistended. MUSCULOSKELETAL: No cyanosis, or edema. BACK: Nontender without obvious deformity. No CVA tenderness. A/P Assessment and Plan RF,S/P Trach CVA Pneumonia Pleural effusion Pseudomonas Tracheobronchitis, ? colonisation PLAN: Cont trach collar Aerosol nebs Supplement 02 Trach care TF Stable pulm status Chris Rizo MD Sep 19, 2017 16:32
--- NOTE | 2017-09-19 19:58 | HHI.PR ---
Subjective Remarks Follow up for DKA, hip fracture, large CVA. Patient remains unresponsive. Eyes open but no meaningful communication or movements. Afebrile. Objective Vitals Vital Signs Date Time Temp Pulse Resp B/P (MAP) Pulse Ox O2 Delivery O2 Flow Rate FiO2 09/19/17 19:47 91 Trach Collar 5.00 28 09/19/17 19:07 97 Trach Collar 6.00 21 09/19/17 16:00 95.5 69 17 130/61 (84) 93 09/19/17 12:00 95.2 58 17 131/63 (85) 94 09/19/17 09:05 96 Trach Collar 6.00 21 09/19/17 08:00 95.7 73 17 136/91 (106) 96 09/19/17 08:00 96 T-piece 21 09/19/17 00:00 97.6 78 16 120/66 (84) 97 09/18/17 21:30 95 Trach Collar 6.00 21 09/18/17 20:00 97.0 77 16 136/61 (86) 94 I/O 09/18/17 09/18/17 09/18/17 09/19/17 09/19/17 09/19/17 07:00 15:00 23:00 07:00 15:00 23:00 Intake Total 0 ml 0 ml Output Total 1200 ml 3.0 ml 350 ml 800 ml 7.0 ml 478.0 ml Balance -1200 ml -3.0 ml -350 ml -800 ml -7.0 ml -478.0 ml Intake Oral 0 ml 0 ml Output Urine Total 1200 ml 350 ml 800 ml 475 ml Tube Feeding Residual Discard 3.0 ml 7.0 ml 3.0 ml # Bowel Movements 0 0 Result Diagram: 09/17/17 1217 09/19/17 0628 Objective Remarks GENERAL: Unresponsive to verbal pr physical stimuli. SKIN: Warm and dry. HEAD: Normocephalic. EYES: No scleral icterus. No injection or drainage. NECK: Supple, trachea midline. No JVD or lymphadenopathy. CARDIOVASCULAR: Regular rate and rhythm without murmurs, gallops, or rubs. RESPIRATORY: Breath sounds equal bilaterally. No accessory muscle use. GASTROINTESTINAL: Abdomen soft, non-tender, nondistended. MUSCULOSKELETAL: No cyanosis, or edema. BACK: Nontender without obvious deformity. No CVA tenderness. Procedures echo 04/24/2017 The left ventricular systolic function is low normal with an estimated ejection fraction in the range of 50- 55%. Mild concentric left ventricular hypertrophy. Normal left ventricular size. [id number] mitral valve regurgitation. A/P Problem List: (1) Acute ischemic left middle cerebral artery (MCA) stroke ICD Code: I63.512 - Cerebral infarction due to unspecified occlusion or stenosis of left middle cerebral artery Status: Acute (2) Acute respiratory failure ICD Code: J96.00 - Acute respiratory failure, unspecified whether with hypoxia or hypercapnia (3) Right hemiplegia ICD Code: G81.91 - Hemiplegia, unspecified affecting right dominant side Status: Acute (4) Sacral decubitus ulcer ICD Code: L89.159 - Pressure ulcer of sacral region, unspecified stage Status: Chronic Assessment and Plan 77 y/o female with HTN, DM admitted for DKA and hip fracture s/p large CVA. Hypernatremia Hyperkalemia - s/p Kayexalate on09/16/2017. - Increased free water flushes. - Na increased from 147 to 149. Will continue D5W and get BMP in the AM. - Potassium improved 5.3 --> 4.4. 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 Diabetes mellitus type 2 Continue Levemir 12 units Q12hrs. Insulin sliding scale Glucerna 1.5 for tube feed. Subcutaneous hip fracture Surgically repaired 04/21/17 No further need for monitoring Hypertension Continue present treatments - Amlodipine 10mg Qday. Reduce Lisinopril from 40mg Q12 to Qday. Serum K+ was 5.1 on 09/11/2017. Lisinopril should be not used more than 40mg Qday for this patient. 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
[2017-09-19 20:00] VITALS: BP 104/54; PULSE 65; RESP 16; TEMP 96.9; O2SAT 97
[2017-09-19 21:53] VITALS: O2SAT 96
[2017-09-20] VITALS (8 sets, daily range): BP systolic 94–117; BP diastolic 53–61; PULSE 51–59; RESP 16–22; TEMP 95.3–97.5; O2SAT 87–99
[2017-09-20] MEDS: INSULIN ASPART SUPPLEMENTAL SCALE SQ SCH ×4 (01:53→17:34)
[2017-09-20] MEDS: HEPARIN SODIUM - SQ 10,000 UNITS/ML VIAL SQ SCH ×3 (06:49→21:28)
[2017-09-20] MEDS: ARTIFICIAL TEARS OPTH SOLN 15 ML BTL EACH EYE SCH ×3 (06:50→21:28)
[2017-09-20 06:59] LABS: BICARBONATE 26.2 MEQ/L (21.0-32.0); CALCIUM 8.9 MG/DL (8.5-10.1); CREATININE 0.79 MG/DL (0.50-1.00)
[2017-09-20] MEDS: POLYETHYLENE GLYCOL 17 GM PKG PEG SCH (10:20)
[2017-09-20] MEDS: LANSOPRAZOLE SOLUTAB 30 MG TAB NG SCH (11:09)
[2017-09-20] MEDS: DEXTROSE 5% IN WATE 1000ML INJ 1,000 ML IV SCH (11:09)
[2017-09-20] MEDS: ASPIRIN 325 MG TAB DOBHOFF SCH (11:09)
[2017-09-20] MEDS: CHOLECALCIFEROL (VIT D3) 5000 UNIT CAP PO SCH (11:09)
[2017-09-20] MEDS: INSULIN DETEMIR 100 UNITS/ML VIAL SQ SCH ×2 (11:10→20:49)
[2017-09-20] MEDS: SULFAMETHOXAZOLE-TRIMETHOPRIM DS 800-160 MG TAB PEG SCH ×2 (11:10→20:46)
[2017-09-20] MEDS: LISINOPRIL 20 MG TAB PO SCH (11:10)
[2017-09-20] MEDS: CALCIUM/VITAMIN D 250 MG/125 U TAB PO SCH ×3 (11:10→17:34)
[2017-09-20] MEDS: BENEPROTEIN POWDER 1 PACK G-TUBE SCH ×3 (11:10→17:34)
[2017-09-20] MEDS: SODIUM CHLORIDE 0.9% FLUSH 5 ML FLUSH IV FLUSH SCH ×2 (11:10→20:49)
--- NOTE | 2017-09-20 13:45 | HHI.PR ---
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 No new complaint no fever Opens eyes Objective Vital Signs Vital Signs Date Time Temp Pulse Resp B/P (MAP) Pulse Ox O2 Delivery O2 Flow Rate FiO2 09/20/17 12:00 95.7 52 17 98/56 (70) 95 09/20/17 10:46 96 T-piece 21 09/20/17 10:45 T-piece 21 09/20/17 08:00 95.3 52 17 94/53 (67) 91 09/20/17 06:00 100 Trach Collar 4.00 28 09/20/17 03:48 96 Trach Collar 4.50 28 09/20/17 02:00 96 Trach Collar 5.00 28 09/20/17 00:00 96.6 59 16 117/61 (79) 99 09/19/17 21:53 96 T-piece 21 09/19/17 21:53 96 T-piece 21 09/19/17 20:00 96.9 65 16 104/54 (71) 97 09/19/17 19:47 91 Trach Collar 5.00 28 09/19/17 19:07 97 Trach Collar 6.00 21 09/19/17 16:00 95.5 69 17 130/61 (84) 93 I/O 09/19/17 09/19/17 09/19/17 09/20/17 09/20/17 09/20/17 06:59 14:59 22:59 06:59 14:59 22:59 Intake Total 1000 ml 740 ml Output Total 800 ml 7.0 ml 478.0 ml 600 ml Balance -800 ml -7.0 ml 522.0 ml 140 ml Intake Oral 0 ml IV Total 1000 ml Tube Feeding 540 ml Other 200 ml Output Urine Total 800 ml 475 ml 600 ml Tube Feeding Residual Discard 7.0 ml 3.0 ml # Bowel Movements 0 Result Diagram: 09/17/17 1217 09/20/17 0601 Objective Remarks GENERAL: Elderly female,NAD SKIN: Warm and dry. HEAD: Normocephalic. EYES: No scleral icterus. No injection or drainage. NECK: Supple, trachea midline. No JVD or lymphadenopathy. CARDIOVASCULAR: Regular rate and rhythm without murmurs, gallops, or rubs. RESPIRATORY: Breath sounds equal bilaterally. No accessory muscle use. GASTROINTESTINAL: Abdomen soft, non-tender, nondistended. MUSCULOSKELETAL: No cyanosis, or edema. BACK: Nontender without obvious deformity. No CVA tenderness. A/P Assessment and Plan RF,S/P Trach CVA Pneumonia Pleural effusion Pseudomonas Tracheobronchitis, ? colonisation PLAN: Cont trach collar Aerosol nebs Supplement 02 Trach care TF Stable pulm status Chris Rizo MD Sep 20, 2017 13:45
--- NOTE | 2017-09-20 23:35 | HHI.PR ---
Subjective Remarks Follow up fo hypernatremia, hip fracture, large CVA.Patient's eyes are open but no meaningful communication. Afebrile. Objective Vitals Vital Signs Date Time Temp Pulse Resp B/P (MAP) Pulse Ox O2 Delivery O2 Flow Rate FiO2 09/20/17 21:16 93 T-piece 5.00 35 09/20/17 21:15 93 T-piece 5.00 35 09/20/17 20:00 97.5 51 22 104/59 (74) 95 09/20/17 16:00 96.1 54 17 104/57 (73) 87 09/20/17 12:00 95.7 52 17 98/56 (70) 95 09/20/17 10:47 87 T-Piece 4.00 28 09/20/17 10:46 96 T-piece 21 09/20/17 10:45 T-piece 21 09/20/17 08:00 95.3 52 17 94/53 (67) 91 09/20/17 06:00 100 Trach Collar 4.00 28 09/20/17 03:48 96 Trach Collar 4.50 28 09/20/17 02:00 96 Trach Collar 5.00 28 09/20/17 00:00 96.6 59 16 117/61 (79) 99 I/O 09/20/17 09/20/17 09/20/17 09/21/17 09/21/17 09/21/17 07:00 15:00 23:00 07:00 15:00 23:00 Intake Total 740 ml 1200 ml 700 ml Output Total 600 ml 375 ml Balance 140 ml 1200 ml 325 ml Intake Oral 0 ml IV Total 1000 ml 500 ml Tube Feeding 540 ml Other 200 ml 200 ml 200 ml Output Urine Total 600 ml 375 ml # Voids 0 # Bowel Movements 4 Result Diagram: 09/17/17 1217 09/20/17 0601 Objective Remarks GENERAL: Unresponsive to verbal pr physical stimuli. SKIN: Warm and dry. HEAD: Normocephalic. EYES: No scleral icterus. No injection or drainage. NECK: Supple, trachea midline. No JVD or lymphadenopathy. CARDIOVASCULAR: Regular rate and rhythm without murmurs, gallops, or rubs. RESPIRATORY: Breath sounds equal bilaterally. No accessory muscle use. GASTROINTESTINAL: Abdomen soft, non-tender, nondistended. MUSCULOSKELETAL: No cyanosis, or edema. BACK: Nontender without obvious deformity. No CVA tenderness. Procedures echo 04/24/2017 The left ventricular systolic function is low normal with an estimated ejection fraction in the range of 50- 55%. Mild concentric left ventricular hypertrophy. Normal left ventricular size. [id number] mitral valve regurgitation. A/P Problem List: (1) Acute ischemic left middle cerebral artery (MCA) stroke ICD Code: I63.512 - Cerebral infarction due to unspecified occlusion or stenosis of left middle cerebral artery Status: Acute (2) Acute respiratory failure ICD Code: J96.00 - Acute respiratory failure, unspecified whether with hypoxia or hypercapnia (3) Right hemiplegia ICD Code: G81.91 - Hemiplegia, unspecified affecting right dominant side Status: Acute (4) Sacral decubitus ulcer ICD Code: L89.159 - Pressure ulcer of sacral region, unspecified stage Status: Chronic Assessment and Plan 77 y/o female with HTN, DM admitted for DKA and hip fracture s/p large CVA. Hypernatremia Hyperkalemia - s/p Kayexalate on09/16/2017. - Increased free water flushes. - Na increased from 147 to 149 --> 137. Will stop IV D5W. - Potassium improved 5.3 --> 4.4. 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 Diabetes mellitus type 2 Continue Levemir 12 units Q12hrs. Insulin sliding scale Glucerna 1.5 for tube feed. Subcutaneous hip fracture Surgically repaired 04/21/17 No further need for monitoring Hypertension Continue present treatments - Amlodipine 10mg Qday. Reduce Lisinopril from 40mg Q12 to Qday. Serum K+ was 5.1 on 09/11/2017. Lisinopril should be not used more than 40mg Qday for this patient. 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
[2017-09-21] VITALS (7 sets, daily range): BP systolic 90–125; BP diastolic 50–56; PULSE 49–73; RESP 18–40; TEMP 96.1–99.7; O2SAT 91–97
[2017-09-21] MEDS ORDERED: METOCLOPRAMIDE HCL 10 MG/2 ML VIAL IV PUSH ONE (03:15)
[2017-09-21] MEDS: HEPARIN SODIUM - SQ 10,000 UNITS/ML VIAL SQ SCH ×3 (05:51→22:00)
[2017-09-21] MEDS: ARTIFICIAL TEARS OPTH SOLN 15 ML BTL EACH EYE SCH ×3 (05:52→22:00)
[2017-09-21] MEDS: INSULIN ASPART SUPPLEMENTAL SCALE SQ SCH ×4 (05:53→18:20)
[2017-09-21] MEDS: POLYETHYLENE GLYCOL 17 GM PKG PEG SCH (07:21)
[2017-09-21] MEDS ORDERED: LISINOPRIL 20 MG TAB PO SCH (09:00)
[2017-09-21 10:51] LABS: BICARBONATE 26.7 MEQ/L (21.0-32.0); CALCIUM 8.9 MG/DL (8.5-10.1); CREATININE 1.24 MG/DL (0.50-1.00)
[2017-09-21] MEDS: SULFAMETHOXAZOLE-TRIMETHOPRIM DS 800-160 MG TAB PEG SCH ×2 (10:55→22:13)
[2017-09-21] MEDS: CHOLECALCIFEROL (VIT D3) 5000 UNIT CAP PO SCH (10:55)
[2017-09-21] MEDS: CALCIUM/VITAMIN D 250 MG/125 U TAB PO SCH ×3 (10:55→18:21)
[2017-09-21] MEDS: ASPIRIN 325 MG TAB DOBHOFF SCH (10:56)
[2017-09-21] MEDS: LANSOPRAZOLE SOLUTAB 30 MG TAB NG SCH (10:56)
[2017-09-21] MEDS: SODIUM CHLORIDE 0.9% FLUSH 5 ML FLUSH IV FLUSH SCH ×2 (10:56→21:00)
[2017-09-21] MEDS: BENEPROTEIN POWDER 1 PACK G-TUBE SCH ×3 (10:56→18:20)
[2017-09-21] MEDS ORDERED: CALCIUM GLUCONATE INJ 1 GM in DEXTROSE 5% IN WATER 100ML INJ 100 ML IV ONE ×2 (11:15)
[2017-09-21] MEDS ORDERED: INSULIN HUMAN REGULAR 1,000 UNITS/10 ML VIAL IV PUSH ONE (11:30)
[2017-09-21] MEDS ORDERED: DEXTROSE 50% IN WATER 50 ML VIAL(D50) IV PUSH ONE (11:30)
[2017-09-21] MEDS ORDERED: RESP: ALBUTEROL CONC 2.5 MG/0.5 ML NEB INH ONE (11:30)
--- NOTE | 2017-09-21 12:53 | HHI.PR ---
Subjective Remarks Follow up fo hypernatremia, hip fracture, large CVA. Patient is resting in bed comfortably, eyes open but no meaningful, medications. I received a call from the nursing staff regarding patient's bradycardia. I immediately went to evaluate patient. Patient appears to be at her baseline. Heart rate at bedside exam was in the 50s. Objective Vitals Vital Signs Date Time Temp Pulse Resp B/P (MAP) Pulse Ox O2 Delivery O2 Flow Rate FiO2 09/21/17 09:16 97 T-piece 6.00 35 09/21/17 09:16 97 T-piece 6.00 35 09/21/17 08:00 98.7 49 40 110/51 (70) 95 09/21/17 00:01 95 T-piece 6.00 35 09/21/17 00:00 97.0 52 22 98/50 (66) 96 09/20/17 21:16 93 T-piece 5.00 35 09/20/17 21:15 93 T-piece 5.00 35 09/20/17 20:50 T-Piece 6.00 28 09/20/17 20:00 97.5 51 22 104/59 (74) 95 09/20/17 16:00 96.1 54 17 104/57 (73) 87 I/O 09/20/17 09/20/17 09/20/17 09/21/17 09/21/17 09/21/17 07:00 15:00 23:00 07:00 15:00 23:00 Intake Total 740 ml 1200 ml 1201 ml 667 ml Output Total 600 ml 375 ml 255.0 ml Balance 140 ml 1200 ml 826 ml 412.0 ml Intake Oral 0 ml 0 ml IV Total 1000 ml 500 ml Tube Feeding 540 ml 501 ml 467 ml Other 200 ml 200 ml 200 ml 200 ml Output Urine Total 600 ml 375 ml 250 ml Tube Feeding Residual Discard 5.0 ml # Voids 0 # Bowel Movements 4 3 Result Diagram: 09/17/17 1217 09/21/17 1000 Imaging Last Impressions Chest X-Ray 08/28/17 0600 Signed Impressions: Service Date/Time: August 06:28 - CONCLUSION: No significant change. Bilateral airspace disease and effusions remain. Jose R Casanova MD Thoracentesis 08/05/17 1951 Signed Impressions: Service Date/Time: Saturday, August 05, 2017 16:08 - CONCLUSION: Uncomplicated CT-guided thoracentesis. Sage Adler MD Chest Ultrasound 08/02/17 0000 Signed Impressions: Service Date/Time: Tuesday, August 01, 2017 22:06 - CONCLUSION: 1. Moderate right pleural effusion, as above. Alejo De La Vega MD Hip and Pelvis X-Ray 07/09/17 0000 Signed Impressions: Service Date/Time: Sunday, July 09, 2017 14:04 - CONCLUSION: Anatomic alignment. Ricardo Middleton MD FACR Liver Ultrasound 06/19/17 0000 Signed Impressions: Service Date/Time: June 13:20 - CONCLUSION: 1. Mildly increased echotexture of the liver characteristic of hepatic steatosis. 2. Gallbladder sludge. Obdulio Sam MD Abdomen X-Ray 06/16/17 0000 Signed Impressions: Service Date/Time: Friday, June 16, 2017 04:48 - CONCLUSION: 1. Continued small bowel ileus. There has been no significant change when compared to the prior exam. Toy Duran MD Head CT 05/15/17 0000 Signed Impressions: Service Date/Time: May 19:59 - CONCLUSION: 1. 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 2. No bleed or new/acute infarct. Obdulio Simms MD Gall Bladder Ultrasound 05/08/17 0000 Signed Impressions: Service Date/Time: May 08:23 - CONCLUSION: Focally unremarkable appearance of the gallbladder Obdulio Chun MD Abdomen/Pelvis CT 05/07/17 0000 Signed Impressions: Service Date/Time: Sunday, May 07, 2017 13:23 - CONCLUSION: 1. Large left pneumothorax. 2. Bilateral lower lobe consolidation and bilateral moderate size pleural effusions. 3. Significant soft tissue thickening of the right lateral chest wall and left gluteus muscle. 4. Mild ascites. The findings were called to Dr. Carney. Deangelo Zamora MD Chest CT 04/30/17 0000 Signed Impressions: Service Date/Time: Sunday, April 30, 2017 09:20 - CONCLUSION: 1. Bilateral pulmonary infiltrates more pronounced within the lower lobes with tiny bilateral pleural effusions. Material seen filling the lower lobe bronchi bilaterally either related to purulent material or perhaps mucus plugging. Deangelo Wren Jr., MD Carotid Artery Ultrasound 04/24/17 0000 Signed Impressions: Service Date/Time: April 09:45 - CONCLUSION: 1. No hemodynamically significant carotid artery stenosis. Arnie Middleton MD Hip X-Ray 04/21/17 0000 Signed Impressions: Service Date/Time: Friday, April 21, 2017 11:36 - CONCLUSION: Fluoroscopic images during placement of intramedullary siomara left femur. Benja Ramsey MD Objective Remarks GENERAL: Unresponsive to verbal pr physical stimuli. SKIN: Warm and dry. HEAD: Normocephalic. EYES: No scleral icterus. No injection or drainage. NECK: Supple, trachea midline. No JVD or lymphadenopathy. CARDIOVASCULAR: Regular rate and rhythm without murmurs, gallops, or rubs. RESPIRATORY: Breath sounds equal bilaterally. No accessory muscle use. GASTROINTESTINAL: Abdomen soft, non-tender, nondistended. MUSCULOSKELETAL: No cyanosis, or edema. BACK: Nontender without obvious deformity. No CVA tenderness. Procedures echo 04/24/2017 The left ventricular systolic function is low normal with an estimated ejection fraction in the range of 50- 55%. Mild concentric left ventricular hypertrophy. Normal left ventricular size. Knnzw-sl-ntoc mitral valve regurgitation. A/P Problem List: (1) Acute ischemic left middle cerebral artery (MCA) stroke ICD Code: I63.512 - Cerebral infarction due to unspecified occlusion or stenosis of left middle cerebral artery Status: Acute (2) Acute respiratory failure ICD Code: J96.00 - Acute respiratory failure, unspecified whether with hypoxia or hypercapnia (3) Right hemiplegia ICD Code: G81.91 - Hemiplegia, unspecified affecting right dominant side Status: Acute (4) Sacral decubitus ulcer ICD Code: L89.159 - Pressure ulcer of sacral region, unspecified stage Status: Chronic Assessment and Plan 77 y/o female with HTN, DM admitted for DKA and hip fracture s/p large CVA. Hypernatremia Hyperkalemia - s/p Kayexalate on09/16/2017. - Continue free water flushes. - Na increased from 147 to 149 --> 137. Today Na 130. - Potassium 5.1 --> 5.9 today. 09/21/2017: I was informed by RN that patient's heart rate was in the 30s. I went to evaluate patient. Heart rate was in the 50s. Patient was examined. No changes from yesterday's exam except for bradycardia. Yesterday, K+ was 5.1. We suspected that hyperkalemia may be worse today and bradycardia could be a manifestation of hyperkalemia. Bradycardia associated with hyperkalemia may degenerate into life threatening arrhythmia. We obtained EKG and stat BMP. K+ is 5.9. We immediately administered 1g of Calcium gluconate, Regular insulin 10 units with D50 as well as Albuterol. We will repeat BMP this afternoon. Total critical care time spent over 40 minutes. Patient's K+ repeated this evening, it was 5.3. However, it appears that there was some hemolysis. I suspected, actual K+ is somewhat lower than 5.3. We will continue Kayexalate. We will also start patient on NS 100cc/hour. And discontinue Lisinopril. Repeat BMP in the AM. 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 Diabetes mellitus type 2 Continue Levemir 12 units Q12hrs. Insulin sliding scale Glucerna 1.5 for tube feed. Subcutaneous hip fracture Surgically repaired 04/21/17 No further need for monitoring Hypertension Continue present treatments - Amlodipine 10mg Qday. Reduce Lisinopril from 40mg Q12 to Qday. Serum K+ was 5.1 on 09/11/2017. Lisinopril should be not used more than 40mg Qday for this patient. 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
[2017-09-21] MEDS: SODIUM POLYSTYRENE SULFONATE SUSP 15 GM/60 ML CUP PEG SCH ×3 (12:54→22:12)
[2017-09-21] MEDS ORDERED: SODIUM CHLORID 0.9% 500 ML INJ 500 ML IV SCH (13:00)
--- NOTE | 2017-09-21 13:05 | HHI.PR ---
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 No new complaint no fever Had episode of throwing up, TF on hold Objective Vital Signs Vital Signs Date Time Temp Pulse Resp B/P (MAP) Pulse Ox O2 Delivery O2 Flow Rate FiO2 09/21/17 09:16 97 T-piece 6.00 35 09/21/17 09:16 97 T-piece 6.00 35 09/21/17 08:00 98.7 49 40 110/51 (70) 95 09/21/17 00:01 95 T-piece 6.00 35 09/21/17 00:00 97.0 52 22 98/50 (66) 96 09/20/17 21:16 93 T-piece 5.00 35 09/20/17 21:15 93 T-piece 5.00 35 09/20/17 20:50 T-Piece 6.00 28 09/20/17 20:00 97.5 51 22 104/59 (74) 95 09/20/17 16:00 96.1 54 17 104/57 (73) 87 I/O 09/20/17 09/20/17 09/20/17 09/21/17 09/21/17 09/21/17 07:00 15:00 23:00 07:00 15:00 23:00 Intake Total 740 ml 1200 ml 1201 ml 667 ml Output Total 600 ml 375 ml 255.0 ml Balance 140 ml 1200 ml 826 ml 412.0 ml Intake Oral 0 ml 0 ml IV Total 1000 ml 500 ml Tube Feeding 540 ml 501 ml 467 ml Other 200 ml 200 ml 200 ml 200 ml Output Urine Total 600 ml 375 ml 250 ml Tube Feeding Residual Discard 5.0 ml # Voids 0 # Bowel Movements 4 3 Result Diagram: 09/17/17 1217 09/21/17 1000 Objective Remarks GENERAL: Elderly female,NAD SKIN: Warm and dry. HEAD: Normocephalic. EYES: No scleral icterus. No injection or drainage. NECK: Supple, trachea midline. No JVD or lymphadenopathy. CARDIOVASCULAR: Regular rate and rhythm without murmurs, gallops, or rubs. RESPIRATORY: Breath sounds equal bilaterally. No accessory muscle use. GASTROINTESTINAL: Abdomen soft, non-tender, nondistended. MUSCULOSKELETAL: No cyanosis, or edema. BACK: Nontender without obvious deformity. No CVA tenderness. A/P Assessment and Plan RF,S/P Trach CVA Pneumonia Pleural effusion Pseudomonas Tracheobronchitis, ? colonisation PLAN: Cont trach collar Aerosol nebs Supplement 02 Trach care restart TF at 20 cc/hr and monitor residual volume. Chris Rizo MD Sep 21, 2017 13:05
--- NOTE | 2017-09-21 13:24 | EKG ---
Date Performed: 09/21/2017 Time Performed: 09:46:14 PTAGE: 77 years EKG: UNCLEAR UNDERLYING RHYTHM DUE TO BASELINE ARTIFACT, POSSIBLY SINUS BRADYCARDIA, THOUGH P-WA VES ARE DIFFICULT TO ASCERTAIN. RECOMMEND REPEAT EKG. LATERAL ST CHANGES, CONSISTENT WITH HYPERTROPHY OR ISCHEMIA, CLINICAL CORRELATION REQUIRED. LEFT VENTRICULAR HYPERTROPHY AND ST-T CHANGE ABNORMAL EC G PREVIOUS TRACING : 06/02/2017 02.11 DOCTOR: Idris Choi Interpretating Date/Time 09/21/2017 13:25:24
[2017-09-21 19:12] LABS: BICARBONATE 25.1 MEQ/L (21.0-32.0); CREATININE 1.24 MG/DL (0.50-1.00)
[2017-09-21] MEDS: SODIUM CHLOR 0.9% 1000 ML INJ 1,000 ML IV SCH (22:10)
[2017-09-21] MEDS: INSULIN DETEMIR 100 UNITS/ML VIAL SQ SCH (22:17)
[2017-09-22] VITALS (10 sets, daily range): BP systolic 138–158; BP diastolic 54–73; PULSE 70–94; RESP 15–20; TEMP 96.3–98.8; O2SAT 92–100
[2017-09-22] MEDS: INSULIN ASPART SUPPLEMENTAL SCALE SQ SCH ×4 (00:10→18:00)
[2017-09-22] MEDS: HEPARIN SODIUM - SQ 10,000 UNITS/ML VIAL SQ SCH ×3 (05:48→21:48)
[2017-09-22] MEDS: ARTIFICIAL TEARS OPTH SOLN 15 ML BTL EACH EYE SCH ×3 (05:48→21:49)
[2017-09-22] MEDS: SODIUM CHLOR 0.9% 1000 ML INJ 1,000 ML IV SCH ×2 (05:51→14:04)
[2017-09-22] MEDS: BENEPROTEIN POWDER 1 PACK G-TUBE SCH ×3 (09:00→18:00)
[2017-09-22] MEDS: ASPIRIN 325 MG TAB DOBHOFF SCH (09:00)
[2017-09-22] MEDS: SODIUM CHLORIDE 0.9% FLUSH 5 ML FLUSH IV FLUSH SCH ×2 (09:00→21:00)
[2017-09-22] MEDS: POLYETHYLENE GLYCOL 17 GM PKG PEG SCH (09:30)
[2017-09-22] MEDS: LANSOPRAZOLE SOLUTAB 30 MG TAB NG SCH (09:30)
[2017-09-22] MEDS: CALCIUM/VITAMIN D 250 MG/125 U TAB PO SCH ×3 (09:30→18:22)
[2017-09-22] MEDS: SODIUM POLYSTYRENE SULFONATE SUSP 15 GM/60 ML CUP PEG SCH (09:30)
[2017-09-22] MEDS: CHOLECALCIFEROL (VIT D3) 5000 UNIT CAP PO SCH (09:30)
[2017-09-22] MEDS: SULFAMETHOXAZOLE-TRIMETHOPRIM DS 800-160 MG TAB PEG SCH ×2 (09:30→21:47)
[2017-09-22 10:33] LABS: BICARBONATE 25.5 MEQ/L (21.0-32.0); CALCIUM 8.5 MG/DL (8.5-10.1); CREATININE 0.81 MG/DL (0.50-1.00)
--- NOTE | 2017-09-22 14:54 | HHI.PR ---
Subjective Remarks Follow up fo hypernatremia, hip fracture, large CVA. Patient remains non- verbal. Does not respond to any verbal commands. Afebrile. Tolerating tube feed well. Objective Vitals Vital Signs Date Time Temp Pulse Resp B/P (MAP) Pulse Ox O2 Delivery O2 Flow Rate FiO2 09/22/17 12:00 98.2 75 16 139/63 (88) 96 09/22/17 09:46 94 T-piece 35 09/22/17 09:46 94 T-piece 35 09/22/17 08:00 98.8 88 15 149/67 (94) 95 09/22/17 05:42 92 T-piece 6.00 35 09/22/17 05:42 92 T-piece 6.00 35 09/22/17 04:00 96.3 89 16 138/65 (89) 94 09/22/17 00:00 98.6 70 20 158/54 (88) 95 09/21/17 22:10 T-Piece 6.00 28 09/21/17 20:00 99.7 65 22 112/51 (71) 96 09/21/17 16:00 98.0 61 18 90/51 (64) 92 09/21/17 16:00 59 I/O 09/21/17 09/21/17 09/21/17 09/22/17 09/22/17 09/22/17 07:00 15:00 23:00 07:00 15:00 23:00 Intake Total 667 ml 100 ml 1420 ml 295 ml Output Total 255.0 ml 400 ml 650 ml Balance 412.0 ml 100 ml 1020 ml -355 ml Intake Oral 0 ml 0 ml IV Total 100 ml 500 ml Tube Feeding 467 ml 520 ml 295 ml Other 200 ml 400 ml Output Urine Total 250 ml 400 ml 650 ml Tube Feeding Residual Discard 5.0 ml # Bowel Movements 3 1 3 Result Diagram: 09/22/17 0750 Objective Remarks GENERAL: Unresponsive to verbal pr physical stimuli. SKIN: Warm and dry. HEAD: Normocephalic. EYES: No scleral icterus. No injection or drainage. NECK: Supple, trachea midline. No JVD or lymphadenopathy. CARDIOVASCULAR: Regular rate and rhythm without murmurs, gallops, or rubs. RESPIRATORY: Breath sounds equal bilaterally. No accessory muscle use. GASTROINTESTINAL: Abdomen soft, non-tender, nondistended. MUSCULOSKELETAL: No cyanosis, or edema. BACK: Nontender without obvious deformity. No CVA tenderness. Procedures echo 04/24/2017 The left ventricular systolic function is low normal with an estimated ejection fraction in the range of 50- 55%. Mild concentric left ventricular hypertrophy. Normal left ventricular size. [id number] mitral valve regurgitation. A/P Problem List: (1) Acute ischemic left middle cerebral artery (MCA) stroke ICD Code: I63.512 - Cerebral infarction due to unspecified occlusion or stenosis of left middle cerebral artery Status: Acute (2) Acute respiratory failure ICD Code: J96.00 - Acute respiratory failure, unspecified whether with hypoxia or hypercapnia (3) Right hemiplegia ICD Code: G81.91 - Hemiplegia, unspecified affecting right dominant side Status: Acute (4) Sacral decubitus ulcer ICD Code: L89.159 - Pressure ulcer of sacral region, unspecified stage Status: Chronic Assessment and Plan 77 y/o female with HTN, DM admitted for DKA and hip fracture s/p large CVA. Hypernatremia Hyperkalemia - s/p Kayexalate - Continue free water flushes. - Na corrected to 138. - Potassium 5.1 --> 5.9 --> 4.2 Acute kidney injury - Creatinine 1.24 --> 0.81. - Will continue gentle hydration with NS. 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 Diabetes mellitus type 2 Continue Levemir 12 units Q12hrs. Insulin sliding scale Glucerna 1.5 for tube feed. Subcutaneous hip fracture Surgically repaired 04/21/17 No further need for monitoring Hypertension Continue present treatments - Amlodipine 10mg Qday. Reduce Lisinopril from 40mg Q12 to Qday. Serum K+ was 5.1 on 09/11/2017. Lisinopril should be not used more than 40mg Qday for this patient. 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
--- NOTE | 2017-09-22 19:57 | HHI.PR ---
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 No new complaint no fever Objective Vital Signs Vital Signs Date Time Temp Pulse Resp B/P (MAP) Pulse Ox O2 Delivery O2 Flow Rate FiO2 09/22/17 19:38 100 T-piece 35 09/22/17 19:38 100 T-piece 35 09/22/17 16:00 97.8 86 16 139/73 (95) 96 09/22/17 12:00 98.2 75 16 139/63 (88) 96 09/22/17 09:46 94 T-piece 35 09/22/17 09:46 94 T-piece 35 09/22/17 08:00 98.8 88 15 149/67 (94) 95 09/22/17 08:00 T-Piece 6.00 35 09/22/17 05:42 92 T-piece 6.00 35 09/22/17 05:42 92 T-piece 6.00 35 09/22/17 04:00 96.3 89 16 138/65 (89) 94 09/22/17 00:00 98.6 70 20 158/54 (88) 95 09/21/17 22:10 T-Piece 6.00 28 09/21/17 20:00 99.7 65 22 112/51 (71) 96 I/O 09/21/17 09/21/17 09/21/17 09/22/17 09/22/17 09/22/17 07:00 15:00 23:00 07:00 15:00 23:00 Intake Total 667 ml 100 ml 1420 ml 295 ml 0 ml Output Total 255.0 ml 400 ml 650 ml 675 ml Balance 412.0 ml 100 ml 1020 ml -355 ml -675 ml Intake Oral 0 ml 0 ml 0 ml IV Total 100 ml 500 ml Tube Feeding 467 ml 520 ml 295 ml Other 200 ml 400 ml Output Urine Total 250 ml 400 ml 650 ml 675 ml Tube Feeding Residual Discard 5.0 ml # Bowel Movements 3 1 3 4 Result Diagram: 09/22/17 0750 Objective Remarks GENERAL: Elderly female,NAD SKIN: Warm and dry. HEAD: Normocephalic. EYES: No scleral icterus. No injection or drainage. NECK: Supple, trachea midline. No JVD or lymphadenopathy. CARDIOVASCULAR: Regular rate and rhythm without murmurs, gallops, or rubs. RESPIRATORY: Breath sounds equal bilaterally. No accessory muscle use. GASTROINTESTINAL: Abdomen soft, non-tender, nondistended. MUSCULOSKELETAL: No cyanosis, or edema. BACK: Nontender without obvious deformity. No CVA tenderness. A/P Assessment and Plan RF,S/P Trach CVA Pneumonia Pleural effusion Pseudomonas Tracheobronchitis, ? colonisation PLAN: Cont trach collar Aerosol nebs Supplement 02 Trach care TF Chris Rizo MD Sep 22, 2017 19:57
[2017-09-22] MEDS: INSULIN DETEMIR 100 UNITS/ML VIAL SQ SCH (21:47)
[2017-09-23] VITALS (10 sets, daily range): BP systolic 114–147; BP diastolic 58–82; PULSE 81–92; RESP 16–18; TEMP 97–98.1; O2SAT 93–98
[2017-09-23] MEDS: INSULIN ASPART SUPPLEMENTAL SCALE SQ SCH ×5 (02:00→22:45)
[2017-09-23] MEDS: HEPARIN SODIUM - SQ 10,000 UNITS/ML VIAL SQ SCH ×3 (05:32→22:46)
[2017-09-23] MEDS: ARTIFICIAL TEARS OPTH SOLN 15 ML BTL EACH EYE SCH ×3 (05:32→22:45)
[2017-09-23] MEDS: SODIUM CHLORIDE 0.9% FLUSH 5 ML FLUSH IV FLUSH SCH ×2 (07:57→21:00)
[2017-09-23] MEDS: SULFAMETHOXAZOLE-TRIMETHOPRIM DS 800-160 MG TAB PEG SCH ×2 (08:32→22:43)
[2017-09-23] MEDS: LANSOPRAZOLE SOLUTAB 30 MG TAB NG SCH (08:32)
[2017-09-23] MEDS: CALCIUM/VITAMIN D 250 MG/125 U TAB PO SCH ×3 (08:32→17:55)
[2017-09-23] MEDS: POLYETHYLENE GLYCOL 17 GM PKG PEG SCH (08:32)
[2017-09-23] MEDS: CHOLECALCIFEROL (VIT D3) 5000 UNIT CAP PO SCH (08:32)
[2017-09-23] MEDS: ASPIRIN 325 MG TAB DOBHOFF SCH (08:33)
[2017-09-23] MEDS: BENEPROTEIN POWDER 1 PACK G-TUBE SCH ×3 (08:33→17:56)
[2017-09-23] MEDS: SODIUM CHLOR 0.9% 1000 ML INJ 1,000 ML IV SCH (08:34)
--- NOTE | 2017-09-23 14:48 | HHI.PR ---
Subjective Remarks Follow up fo hypernatremia, hip fracture, large CVA. Patient remains nonverbal. Afebrile. Tolerating tube feed well. Objective Vitals Vital Signs Date Time Temp Pulse Resp B/P (MAP) Pulse Ox O2 Delivery O2 Flow Rate FiO2 09/23/17 12:00 97.1 81 18 117/58 (77) 93 09/23/17 10:38 98 T-piece 5.00 35 09/23/17 10:38 96 T-piece 5.00 35 09/23/17 08:00 98.1 92 18 140/63 (88) 93 09/23/17 04:00 97.4 85 16 114/59 (77) 94 09/23/17 03:18 98 T-piece 6.00 35 09/23/17 03:17 98 T-piece 6.00 35 09/23/17 00:00 97.8 89 18 125/60 (81) 94 09/22/17 22:00 T-Piece 6.00 35 09/22/17 22:00 92 09/22/17 20:00 98.0 94 18 145/69 (94) 100 09/22/17 19:38 100 T-piece 35 09/22/17 19:38 100 T-piece 35 09/22/17 16:00 97.8 86 16 139/73 (95) 96 I/O 09/22/17 09/22/17 09/22/17 09/23/17 09/23/17 09/23/17 07:00 15:00 23:00 07:00 15:00 23:00 Intake Total 295 ml 0 ml 1149 ml Output Total 650 ml 675 ml 800 ml Balance -355 ml -675 ml 349 ml Intake Oral 0 ml IV Total 466 ml Tube Feeding 295 ml 283 ml Other 400 ml Output Urine Total 650 ml 675 ml 800 ml # Bowel Movements 3 4 1 Result Diagram: 09/22/17 0750 Objective Remarks GENERAL: Unresponsive to verbal pr physical stimuli. SKIN: Warm and dry. HEAD: Normocephalic. EYES: No scleral icterus. No injection or drainage. NECK: Supple, trachea midline. No JVD or lymphadenopathy. CARDIOVASCULAR: Regular rate and rhythm without murmurs, gallops, or rubs. RESPIRATORY: Breath sounds equal bilaterally. No accessory muscle use. GASTROINTESTINAL: Abdomen soft, non-tender, nondistended. MUSCULOSKELETAL: No cyanosis, or edema. BACK: Nontender without obvious deformity. No CVA tenderness. Procedures echo 04/24/2017 The left ventricular systolic function is low normal with an estimated ejection fraction in the range of 50- 55%. Mild concentric left ventricular hypertrophy. Normal left ventricular size. Msblm-ey-ehve mitral valve regurgitation. A/P Problem List: (1) Acute ischemic left middle cerebral artery (MCA) stroke ICD Code: I63.512 - Cerebral infarction due to unspecified occlusion or stenosis of left middle cerebral artery Status: Acute (2) Acute respiratory failure ICD Code: J96.00 - Acute respiratory failure, unspecified whether with hypoxia or hypercapnia (3) Right hemiplegia ICD Code: G81.91 - Hemiplegia, unspecified affecting right dominant side Status: Acute (4) Sacral decubitus ulcer ICD Code: L89.159 - Pressure ulcer of sacral region, unspecified stage Status: Chronic Assessment and Plan 77 y/o female with HTN, DM admitted for DKA and hip fracture s/p large CVA. Hypernatremia Hyperkalemia - s/p Kayexalate - Continue free water flushes. - Na corrected to 138. - Potassium 5.1 --> 5.9 --> 4.2 Acute kidney injury - Creatinine 1.24 --> 0.81. - Will continue gentle hydration with NS. 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 Diabetes mellitus type 2 Continue Levemir 12 units Q12hrs. Insulin sliding scale Glucerna 1.5 for tube feed. Subcutaneous hip fracture Surgically repaired 04/21/17 No further need for monitoring Hypertension Continue present treatments - Amlodipine 10mg Qday. Reduce Lisinopril from 40mg Q12 to Qday. Serum K+ was 5.1 on 09/11/2017. Lisinopril should be not used more than 40mg Qday for this patient. 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 Problem Qualifiers (1) Sacral decubitus ulcer: Qualified Codes: L89.152 - Pressure ulcer of sacral region, stage 2 Sherman Juarez DO Sep 23, 2017 2:48 pm
--- NOTE | 2017-09-23 19:08 | HHI.PR ---
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 No new complaint no fever Objective Vital Signs Vital Signs Date Time Temp Pulse Resp B/P (MAP) Pulse Ox O2 Delivery O2 Flow Rate FiO2 09/23/17 16:00 97.0 86 18 138/82 (100) 96 09/23/17 12:00 97.1 81 18 117/58 (77) 93 09/23/17 10:38 98 T-piece 5.00 35 09/23/17 10:38 96 T-piece 5.00 35 09/23/17 08:00 98.1 92 18 140/63 (88) 93 09/23/17 04:00 97.4 85 16 114/59 (77) 94 09/23/17 03:18 98 T-piece 6.00 35 09/23/17 03:17 98 T-piece 6.00 35 09/23/17 00:00 97.8 89 18 125/60 (81) 94 09/22/17 22:00 T-Piece 6.00 35 09/22/17 22:00 92 09/22/17 20:00 98.0 94 18 145/69 (94) 100 09/22/17 19:38 100 T-piece 35 09/22/17 19:38 100 T-piece 35 I/O 09/22/17 09/22/17 09/22/17 09/23/17 09/23/17 09/23/17 06:59 14:59 22:59 06:59 14:59 22:59 Intake Total 295 ml 0 ml 1149 ml Output Total 650 ml 675 ml 800 ml Balance -355 ml -675 ml 349 ml Intake Oral 0 ml IV Total 466 ml Tube Feeding 295 ml 283 ml Other 400 ml Output Urine Total 650 ml 675 ml 800 ml # Bowel Movements 3 4 1 Result Diagram: 09/22/17 0750 Objective Remarks GENERAL: Elderly female,NAD SKIN: Warm and dry. HEAD: Normocephalic. EYES: No scleral icterus. No injection or drainage. NECK: Supple, trachea midline. No JVD or lymphadenopathy. CARDIOVASCULAR: Regular rate and rhythm without murmurs, gallops, or rubs. RESPIRATORY: Breath sounds equal bilaterally. No accessory muscle use. GASTROINTESTINAL: Abdomen soft, non-tender, nondistended. MUSCULOSKELETAL: No cyanosis, or edema. BACK: Nontender without obvious deformity. No CVA tenderness. A/P Assessment and Plan RF,S/P Trach CVA Pneumonia Pleural effusion Pseudomonas Tracheobronchitis, ? colonisation PLAN: Cont trach collar Aerosol nebs Supplement 02 Trach care TF Stable pulm Chris Rizo MD Sep 23, 2017 19:08
[2017-09-23] MEDS: INSULIN DETEMIR 100 UNITS/ML VIAL SQ SCH (22:45)
[2017-09-24] VITALS (8 sets, daily range): BP systolic 143–178; BP diastolic 66–83; PULSE 79–89; RESP 17–20; TEMP 95.4–97.7; O2SAT 90–98
[2017-09-24] MEDS: HEPARIN SODIUM - SQ 10,000 UNITS/ML VIAL SQ SCH ×2 (06:53→19:03)
[2017-09-24] MEDS: ARTIFICIAL TEARS OPTH SOLN 15 ML BTL EACH EYE SCH ×2 (06:54→14:00)
[2017-09-24] MEDS: INSULIN ASPART SUPPLEMENTAL SCALE SQ SCH ×3 (06:54→18:00)
[2017-09-24] MEDS: SODIUM CHLORIDE 0.9% FLUSH 5 ML FLUSH IV FLUSH SCH (09:00)
[2017-09-24] MEDS: BENEPROTEIN POWDER 1 PACK G-TUBE SCH ×3 (09:00→18:00)
[2017-09-24] MEDS ORDERED: hydrALAZINE HCL 10 MG TAB PEG ONE (09:00)
[2017-09-24] MEDS: SULFAMETHOXAZOLE-TRIMETHOPRIM DS 800-160 MG TAB PEG SCH (11:49)
[2017-09-24] MEDS: CALCIUM/VITAMIN D 250 MG/125 U TAB PO SCH ×3 (11:49→19:04)
[2017-09-24] MEDS: ASPIRIN 325 MG TAB DOBHOFF SCH (11:50)
[2017-09-24] MEDS: CHOLECALCIFEROL (VIT D3) 5000 UNIT CAP PO SCH (11:50)
[2017-09-24] MEDS: LANSOPRAZOLE SOLUTAB 30 MG TAB NG SCH (11:50)
[2017-09-24] MEDS: POLYETHYLENE GLYCOL 17 GM PKG PEG SCH (11:50)
--- NOTE | 2017-09-24 12:36 | HHI.PR ---
Subjective Remarks Follow up fo hypernatremia, hip fracture, large CVA. Patient has her eyes open but no verbal communications. Does not follow commands. Tolerating tube feed. Afebrile. Objective Vitals Vital Signs Date Time Temp Pulse Resp B/P (MAP) Pulse Ox O2 Delivery O2 Flow Rate FiO2 09/24/17 11:51 93 T-piece 6.00 50 09/24/17 11:51 93 T-piece 6.00 50 09/24/17 08:00 95.4 83 19 174/80 (111) 95 09/24/17 04:00 97.0 81 18 150/74 (99) 96 09/24/17 00:00 96.7 82 18 146/74 (98) 98 09/23/17 22:02 96 T-piece 50 09/23/17 22:02 96 T-piece 50 09/23/17 20:00 97.7 83 18 147/65 (92) 97 09/23/17 16:00 97.0 86 18 138/82 (100) 96 I/O 09/23/17 09/23/17 09/23/17 09/24/17 09/24/17 09/24/17 07:00 15:00 23:00 07:00 15:00 23:00 Intake Total 1149 ml Output Total 800 ml 1550 ml Balance 349 ml -1550 ml IV Total 466 ml Tube Feeding 283 ml Other 400 ml Output Urine Total 800 ml 1550 ml # Bowel Movements 1 Result Diagram: 09/22/17 0750 Imaging Last Impressions Chest X-Ray 08/28/17 0600 Signed Impressions: Service Date/Time: August 06:28 - CONCLUSION: No significant change. Bilateral airspace disease and effusions remain. Jose R Casanova MD Thoracentesis 08/05/17 1535 Signed Impressions: Service Date/Time: Saturday, August 05, 2017 16:08 - CONCLUSION: Uncomplicated CT-guided thoracentesis. Sage Adler MD Chest Ultrasound 08/02/17 0000 Signed Impressions: Service Date/Time: Tuesday, August 01, 2017 22:06 - CONCLUSION: 1. Moderate right pleural effusion, as above. Alejo De La Vega MD Hip and Pelvis X-Ray 07/09/17 0000 Signed Impressions: Service Date/Time: Sunday, July 09, 2017 14:04 - CONCLUSION: Anatomic alignment. Ricardo Middleton MD FACR Liver Ultrasound 06/19/17 0000 Signed Impressions: Service Date/Time: June 13:20 - CONCLUSION: 1. Mildly increased echotexture of the liver characteristic of hepatic steatosis. 2. Gallbladder sludge. Obdulio Sam MD Abdomen X-Ray 06/16/17 0000 Signed Impressions: Service Date/Time: Friday, June 16, 2017 04:48 - CONCLUSION: 1. Continued small bowel ileus. There has been no significant change when compared to the prior exam. Toy Duran MD Head CT 05/15/17 0000 Signed Impressions: Service Date/Time: May 19:59 - CONCLUSION: 1. 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 2. No bleed or new/acute infarct. Obdulio Simms MD Gall Bladder Ultrasound 05/08/17 0000 Signed Impressions: Service Date/Time: May 08:23 - CONCLUSION: Focally unremarkable appearance of the gallbladder Obdulio Chun MD Abdomen/Pelvis CT 05/07/17 0000 Signed Impressions: Service Date/Time: Sunday, May 07, 2017 13:23 - CONCLUSION: 1. Large left pneumothorax. 2. Bilateral lower lobe consolidation and bilateral moderate size pleural effusions. 3. Significant soft tissue thickening of the right lateral chest wall and left gluteus muscle. 4. Mild ascites. The findings were called to Dr. Carney. Deangelo Zamora MD Chest CT 04/30/17 0000 Signed Impressions: Service Date/Time: Sunday, April 30, 2017 09:20 - CONCLUSION: 1. Bilateral pulmonary infiltrates more pronounced within the lower lobes with tiny bilateral pleural effusions. Material seen filling the lower lobe bronchi bilaterally either related to purulent material or perhaps mucus plugging. Deangelo Wren Jr., MD Carotid Artery Ultrasound 04/24/17 0000 Signed Impressions: Service Date/Time: April 09:45 - CONCLUSION: 1. No hemodynamically significant carotid artery stenosis. Arnie Middleton MD Hip X-Ray 04/21/17 0000 Signed Impressions: Service Date/Time: Friday, April 21, 2017 11:36 - CONCLUSION: Fluoroscopic images during placement of intramedullary siomara left femur. Benja Ramsey MD Objective Remarks GENERAL: Unresponsive to verbal pr physical stimuli. SKIN: Warm and dry. HEAD: Normocephalic. EYES: No scleral icterus. No injection or drainage. NECK: Supple, trachea midline. No JVD or lymphadenopathy. CARDIOVASCULAR: Regular rate and rhythm without murmurs, gallops, or rubs. RESPIRATORY: Breath sounds equal bilaterally. No accessory muscle use. GASTROINTESTINAL: Abdomen soft, non-tender, nondistended. MUSCULOSKELETAL: No cyanosis, or edema. BACK: Nontender without obvious deformity. No CVA tenderness. Procedures echo 04/24/2017 The left ventricular systolic function is low normal with an estimated ejection fraction in the range of 50- 55%. Mild concentric left ventricular hypertrophy. Normal left ventricular size. [id number] mitral valve regurgitation. A/P Problem List: (1) Acute ischemic left middle cerebral artery (MCA) stroke ICD Code: I63.512 - Cerebral infarction due to unspecified occlusion or stenosis of left middle cerebral artery Status: Acute (2) Acute respiratory failure ICD Code: J96.00 - Acute respiratory failure, unspecified whether with hypoxia or hypercapnia (3) Right hemiplegia ICD Code: G81.91 - Hemiplegia, unspecified affecting right dominant side Status: Acute (4) Sacral decubitus ulcer ICD Code: L89.159 - Pressure ulcer of sacral region, unspecified stage Status: Chronic Assessment and Plan 77 y/o female with HTN, DM admitted for DKA and hip fracture s/p large CVA. Hypernatremia Hyperkalemia - s/p Kayexalate - Continue free water flushes. - Na corrected to 138. - Potassium 5.1 --> 5.9 --> 4.2 - Will check BMP in the AM. Acute kidney injury - Creatinine 1.24 --> 0.81. - d/c Normal saline. 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 Diabetes mellitus type 2 Continue Levemir 12 units Q12hrs. Insulin sliding scale Glucerna 1.5 for tube feed. Subcutaneous hip fracture Surgically repaired 04/21/17 No further need for monitoring Hypertension Continue present treatments - Amlodipine 10mg Qday. Reduce Lisinopril from 40mg Q12 to Qday. Serum K+ was 5.1 on 09/11/2017. Lisinopril should be not used more than 40mg Qday for this patient. 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 Problem Qualifiers (1) Sacral decubitus ulcer: Qualified Codes: L89.152 - Pressure ulcer of sacral region, stage 2 Sherman Juarez DO Sep 24, 2017 12:36 pm
[2017-09-24] MEDS: hydrALAZINE HCL 10 MG TAB PEG SCH (14:00)
--- NOTE | 2017-09-24 17:41 | HHI.PR ---
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 No new complaint no fever Looks around Objective Vital Signs Vital Signs Date Time Temp Pulse Resp B/P (MAP) Pulse Ox O2 Delivery O2 Flow Rate FiO2 09/24/17 16:00 96.5 89 17 178/83 (114) 97 09/24/17 12:00 96.6 89 20 174/81 (112) 90 09/24/17 11:51 93 T-piece 6.00 50 09/24/17 11:51 93 T-piece 6.00 50 09/24/17 08:00 95.4 83 19 174/80 (111) 95 09/24/17 04:00 97.0 81 18 150/74 (99) 96 09/24/17 00:00 96.7 82 18 146/74 (98) 98 09/23/17 22:02 96 T-piece 50 09/23/17 22:02 96 T-piece 50 09/23/17 20:00 97.7 83 18 147/65 (92) 97 I/O 09/23/17 09/23/17 09/23/17 09/24/17 09/24/17 09/24/17 07:00 15:00 23:00 07:00 15:00 23:00 Intake Total 1149 ml Output Total 800 ml 1550 ml Balance 349 ml -1550 ml IV Total 466 ml Tube Feeding 283 ml Other 400 ml Output Urine Total 800 ml 1550 ml # Bowel Movements 1 Result Diagram: 09/22/17 0750 Objective Remarks GENERAL: Elderly female,NAD SKIN: Warm and dry. HEAD: Normocephalic. EYES: No scleral icterus. No injection or drainage. NECK: Supple, trachea midline. No JVD or lymphadenopathy. CARDIOVASCULAR: Regular rate and rhythm without murmurs, gallops, or rubs. RESPIRATORY: Breath sounds equal bilaterally. No accessory muscle use. GASTROINTESTINAL: Abdomen soft, non-tender, nondistended. MUSCULOSKELETAL: No cyanosis, or edema. BACK: Nontender without obvious deformity. No CVA tenderness. A/P Assessment and Plan RF,S/P Trach CVA Pneumonia Pleural effusion Pseudomonas Tracheobronchitis, ? colonisation PLAN: Cont trach collar Aerosol nebs Supplement 02 Trach care TF Stable pulm DW RN at [facility] Rizo MD Sep 24, 2017 17:41
[2017-09-25] VITALS (9 sets, daily range): BP systolic 135–176; BP diastolic 65–87; PULSE 70–87; RESP 17–20; TEMP 96.3–99.2; O2SAT 90–97
[2017-09-25] MEDS: SULFAMETHOXAZOLE-TRIMETHOPRIM DS 800-160 MG TAB PEG SCH ×3 (00:01→20:42)
[2017-09-25] MEDS: hydrALAZINE HCL 10 MG TAB PEG SCH ×4 (00:01→20:41)
[2017-09-25] MEDS: INSULIN ASPART SUPPLEMENTAL SCALE SQ SCH ×4 (00:02→18:36)
[2017-09-25] MEDS: INSULIN DETEMIR 100 UNITS/ML VIAL SQ SCH ×2 (00:02→20:42)
[2017-09-25] MEDS: HEPARIN SODIUM - SQ 10,000 UNITS/ML VIAL SQ SCH ×4 (00:04→20:42)
[2017-09-25] MEDS: ARTIFICIAL TEARS OPTH SOLN 15 ML BTL EACH EYE SCH ×4 (00:04→20:42)
[2017-09-25] MEDS: SODIUM CHLORIDE 0.9% FLUSH 5 ML FLUSH IV FLUSH SCH ×3 (00:05→20:42)
[2017-09-25] MEDS: LANSOPRAZOLE SOLUTAB 30 MG TAB NG SCH (08:54)
[2017-09-25] MEDS: ASPIRIN 325 MG TAB DOBHOFF SCH (08:54)
[2017-09-25] MEDS: POLYETHYLENE GLYCOL 17 GM PKG PEG SCH (08:55)
[2017-09-25] MEDS: CHOLECALCIFEROL (VIT D3) 5000 UNIT CAP PO SCH (08:55)
[2017-09-25] MEDS: BENEPROTEIN POWDER 1 PACK G-TUBE SCH ×3 (08:55→18:00)
[2017-09-25] MEDS: CALCIUM/VITAMIN D 250 MG/125 U TAB PO SCH ×3 (08:56→18:36)
--- NOTE | 2017-09-25 10:58 | HHI.PR ---
Subjective Remarks As per RN report the patient is tachypneic and producing a thick yellow sputum which can be obtained through suctioning. Patient is nonverbal. Blood pressure has been noted to be labile. Patient is afebrile Objective Vitals Vital Signs Date Time Temp Pulse Resp B/P (MAP) Pulse Ox O2 Delivery O2 Flow Rate FiO2 09/25/17 09:10 96 T-piece 10.00 70 09/25/17 09:09 96 T-piece 10.00 70 09/25/17 08:00 96.3 86 17 176/79 (111) 90 09/25/17 05:39 99.2 70 20 140/67 (91) 95 09/25/17 00:43 98.6 87 20 159/74 (102) 94 09/24/17 23:30 96 T-Piece 6.00 70 09/24/17 21:30 97 T-piece 50 09/24/17 21:30 97 T-piece 50 09/24/17 20:00 97.7 79 17 143/66 (91) 96 09/24/17 16:00 96.5 89 17 178/83 (114) 97 09/24/17 12:00 96.6 89 20 174/81 (112) 90 09/24/17 11:51 93 T-piece 6.00 50 09/24/17 11:51 93 T-piece 6.00 50 I/O 09/24/17 09/24/17 09/24/17 09/25/17 09/25/17 09/25/17 07:00 15:00 23:00 07:00 15:00 23:00 Intake Total 0 ml 1023 ml Output Total 1550 ml 850 ml 1000 ml Balance -1550 ml -850 ml -1000 ml 1023 ml Intake Oral 0 ml Tube Feeding 1023 ml Output Urine Total 1550 ml 850 ml 1000 ml # Bowel Movements 0 0 Result Diagram: 09/22/17 0750 Imaging Last Impressions Chest X-Ray 08/28/17 0600 Signed Impressions: Service Date/Time: August 06:28 - CONCLUSION: No significant change. Bilateral airspace disease and effusions remain. Jose R Casanova MD Thoracentesis 08/05/17 1535 Signed Impressions: Service Date/Time: Saturday, August 05, 2017 16:08 - CONCLUSION: Uncomplicated CT-guided thoracentesis. Sage Adler MD Chest Ultrasound 08/02/17 0000 Signed Impressions: Service Date/Time: Tuesday, August 01, 2017 22:06 - CONCLUSION: 1. Moderate right pleural effusion, as above. Alejo De La Vega MD Hip and Pelvis X-Ray 07/09/17 0000 Signed Impressions: Service Date/Time: Sunday, July 09, 2017 14:04 - CONCLUSION: Anatomic alignment. Ricardo Middleton MD FACR Liver Ultrasound 06/19/17 0000 Signed Impressions: Service Date/Time: June 13:20 - CONCLUSION: 1. Mildly increased echotexture of the liver characteristic of hepatic steatosis. 2. Gallbladder sludge. Obdulio Sam MD Abdomen X-Ray 06/16/17 0000 Signed Impressions: Service Date/Time: Friday, June 16, 2017 04:48 - CONCLUSION: 1. Continued small bowel ileus. There has been no significant change when compared to the prior exam. Toy Duran MD Head CT 05/15/17 0000 Signed Impressions: Service Date/Time: May 19:59 - CONCLUSION: 1. 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 2. No bleed or new/acute infarct. Obdulio Simms MD Gall Bladder Ultrasound 05/08/17 0000 Signed Impressions: Service Date/Time: May 08:23 - CONCLUSION: Focally unremarkable appearance of the gallbladder Obdulio Chun MD Abdomen/Pelvis CT 05/07/17 0000 Signed Impressions: Service Date/Time: Sunday, May 07, 2017 13:23 - CONCLUSION: 1. Large left pneumothorax. 2. Bilateral lower lobe consolidation and bilateral moderate size pleural effusions. 3. Significant soft tissue thickening of the right lateral chest wall and left gluteus muscle. 4. Mild ascites. The findings were called to Dr. Carney. Deangelo Zamora MD Chest CT 04/30/17 0000 Signed Impressions: Service Date/Time: Sunday, April 30, 2017 09:20 - CONCLUSION: 1. Bilateral pulmonary infiltrates more pronounced within the lower lobes with tiny bilateral pleural effusions. Material seen filling the lower lobe bronchi bilaterally either related to purulent material or perhaps mucus plugging. Deangelo Wren Jr., MD Carotid Artery Ultrasound 04/24/17 0000 Signed Impressions: Service Date/Time: April 09:45 - CONCLUSION: 1. No hemodynamically significant carotid artery stenosis. Arnie Middleton MD Hip X-Ray 04/21/17 0000 Signed Impressions: Service Date/Time: Friday, April 21, 2017 11:36 - CONCLUSION: Fluoroscopic images during placement of intramedullary siomara left femur. Benja Ramsey MD Procedures echo 04/24/2017 The left ventricular systolic function is low normal with an estimated ejection fraction in the range of 50- 55%. Mild concentric left ventricular hypertrophy. Normal left ventricular size. [id number] mitral valve regurgitation. Medications and IVs Current Medications Medications (Trade) Dose Ordered Sig/Zeferino Route Start Time Stop Time Status Last Admin (Narcan Inj) 0.4 mg UNSCH PRN IV 04/20/17 17:15 (Oscal-D 250-125) 250 mg TID PO 04/21/17 13:00 09/25/17 08:56 (Vitamin D3) 5,000 units DAILY PO 04/22/17 09:00 09/25/17 08:55 (NS Flush) 2 ml BID IV FLUSH 04/24/17 21:00 09/25/17 08:55 (NS Flush) 2 ml UNSCH PRN IV FLUSH 04/24/17 09:30 09/17/17 08:48 (Aspirin) 325 mg DAILY DOBHOFF 04/27/17 09:00 09/25/17 08:54 (Prevacid Odt) 30 mg DAILY NG 05/08/17 09:00 09/25/17 08:54 (Beneprotein Powder) 1 pack TID G-TUBE 05/12/17 13:00 09/25/17 08:55 (Glucagon Inj) 1 mg UNSCH PRN OTHER 05/21/17 13:15 (D50w (Syr) Inj) 50 ml UNSCH PRN IV PUSH 05/22/17 17:15 07/27/17 09:09 (Tears Naturale Opth Soln) 1 drop Q8HR EACH EYE 06/12/17 07:15 09/25/17 05:18 (Nitroglycerin 2% Oint) 2 inch Q6H PRN TOPICAL 06/21/17 08:00 06/30/17 14:37 (Miralax) 17 gm DAILY PEG 07/09/17 09:00 09/24/17 11:50 (Catapres) 0.1 mg Q6H PRN PO 07/12/17 00:30 08/23/17 16:22 (Heparin Inj) 5,000 units Q8HR SQ 07/15/17 08:00 09/25/17 05:18 (NovoLOG SUPPLEMENTAL SCALE) 1 Q6HR SQ 07/21/17 18:00 09/25/17 05:30 (Duoneb Neb) 1 ampule Q6HR NEB PRN NEB 08/10/17 14:00 09/05/17 12:42 (Norvasc) 10 mg DAILY PO 09/02/17 09:00 09/25/17 08:56 (Lopressor) 12.5 mg Q12HR PO 09/05/17 21:00 Future Hold 09/06/17 08:46 (Pill Splitter) 1 ea UNSCH PRN OTHER 09/05/17 11:00 (Bactrim Ds 800-160 Mg) 1 tab Q12HR PEG 09/09/17 21:00 09/25/17 09:07 (Tylenol) 500 mg Q6H PRN PEG 09/16/17 16:15 09/16/17 16:36 (Levemir Inj) 12 units HS SQ 09/21/17 21:00 09/25/17 00:02 (Apresoline) 10 mg Q8HR PEG 09/24/17 14:00 09/25/17 05:18 A/P Problem List: (1) Acute ischemic left middle cerebral artery (MCA) stroke ICD Code: I63.512 - Cerebral infarction due to unspecified occlusion or stenosis of left middle cerebral artery Status: Acute (2) Acute respiratory failure ICD Code: J96.00 - Acute respiratory failure, unspecified whether with hypoxia or hypercapnia (3) Right hemiplegia ICD Code: G81.91 - Hemiplegia, unspecified affecting right dominant side Status: Acute (4) Sacral decubitus ulcer ICD Code: L89.159 - Pressure ulcer of sacral region, unspecified stage Status: Chronic Assessment and Plan 77 y/o female with HTN, DM admitted for DKA and hip fracture s/p large CVA. Hypernatremia Hyperkalemia - s/p Kayexalate - Continue free water flushes. - Na corrected to 138. - Potassium 5.1 --> 5.9 --> 4.2 - Will check BMP in the AM. - 09/25 Labs not checked since 09/22. Will order BMP and CBC with differential. Acute kidney injury - Likely prerenal azotemia, resolved after IV fluid administration. Continue to monitor BUN/creatinine, avoid nephrotoxins and monitor strict I's and O's. Chronic respiratory failure Continue tracheostomy Continue oxygen Supportive care Respiratory therapy following Pseudomonas from 08/25/17 appears to be a colonization Pulmonology following 09/25 patient with thick yellow sputum production. Previous sputum culture with Pseudomonas. I will start on IV cefepime and obtaining a sputum cultures. 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 Diabetes mellitus type 2 Continue Levemir 12 units Q12hrs. Insulin sliding scale Glucerna 1.5 for tube feed. 09/25 Tolerating tube feeding. Subcutaneous hip fracture Surgically repaired 04/21/17 No further need for monitoring Hypertension Continue present treatments - Amlodipine 10mg Qday. Reduce Lisinopril from 40mg Q12 to Qday. Serum K+ was 5.1 on 09/11/2017. Lisinopril should be not used more than 40mg Qday for this patient. Adjust as needed 09/25 blood pressure labile and severely elevated today with a systolic blood pressure in the 170s. I will start the patient on doxazosin to the PEG tube for blood pressure control. Continue to monitor vital signs. 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 Problem Qualifiers (1) Sacral decubitus ulcer: Qualified Codes: L89.152 - Pressure ulcer of sacral region, stage 2 Aleksandar Alford MD Sep 25, 2017 10:58
--- NOTE | 2017-09-25 11:38 | RADRPT ---
EXAM DATE/TIME: 09/25/2017 10:51 [facility] COMPARISON: CHEST SINGLE AP, August 28, 2017, 6:28. INDICATIONS : Short of breath MEDICAL HISTORY : Stroke. Hysterectomy diabetes, anxiety SURGICAL HISTORY : tracheostomy ENCOUNTER: Subsequent ACUITY: 3 weeks PAIN SCORE: Non-responsive. LOCATION: chest FINDINGS: Single AP view of the chest. Tracheostomy tube in place. Increased, severe confluent opacity of the l ungs bilaterally. Bilateral moderate sized to large pleural effusions. Obscuration of the cardiac mar gins. No evidence of pneumothorax. CONCLUSION: 1. Increased severe bilateral pulmonary opacity with relative sparing of the apices. 2. Likely moderate-sized to large pleural effusions bilaterally. Robert Knox MD on September 25, 2017 at 11:34 Board Certified Radiologist. This report was verified electronically.
[2017-09-25 13:08] LABS: BICARBONATE 25.6 MEQ/L (21.0-32.0); CALCIUM 9.1 MG/DL (8.5-10.1); CREATININE 0.53 MG/DL (0.50-1.00)
[2017-09-25] MEDS: CEFEPIME INJ 2,000 MG in SODIUM CHLORIDE 0.9% INJ 100 ML IV SCH ×2 (13:55→20:41)
--- NOTE | 2017-09-25 15:20 | PD.WCN.NOT ---
Wound Consult Description: Follow up on coccyx wound. Communicated with: GREGORY Ziegler Recommendation: 1. Please cleanse coccyx wound every 3 days and PRN for soiling. 2. Apply Calcium Alginate to open wound bed. 3. Secure with bordered gauze every 3 days and PRN for soiling. 4. Continue to turn patient every 2 hours or PRN for comfort. Please use one ultrasorb for moisture. Please use flat sheet for repositioning on specialty surface. To new DTI on left medial 1st met head: 1. Apply Cavilon spray BID and PRN and leave open to air. Additional Information: Patient seen on for wound evaluation of coccyx wound. Patient tube feed held by GREGORY Ziegler and patient was positioned to her left side for assessment. Foam adhesive removed to reveal a partial thickness skinloss area measuring 0.6cm x 0.6cm x 0.2cm with 100% red non granulating tissue noted without active drainage and without odor present. Periwound noted with white intact tissue from 4-6 o'clock. Wound was cleansed with NS and drain sponge. Calcium Alginate was placed over the wound bed and secured with a dated dressing of bordered gauze. Wound appears improved with no further recommendations at this time. There is a new DTI noted to left medial first met head measuring 1cm x 2cm x skin flap replaced after foam dressing was removed by GREGORY Ziegler for visualization. Recommend BID skin prep to DTI and leave open to air and free from pressure of blue heel raiser boots. Tube feeding started by hand sign writer after patient was repositioned to left side and head of bed was raised >=30 degrees. Snehal Olivier [facility] Sep 25, 2017 15:20
--- NOTE | 2017-09-25 19:03 | HHI.PR ---
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 No new complaint no fever Objective Vital Signs Vital Signs Date Time Temp Pulse Resp B/P (MAP) Pulse Ox O2 Delivery O2 Flow Rate FiO2 09/25/17 16:00 96.3 84 20 139/87 (104) 96 09/25/17 12:00 96.7 72 19 135/65 (88) 91 09/25/17 09:10 96 T-piece 10.00 70 09/25/17 09:09 96 T-piece 10.00 70 09/25/17 09:00 T-Piece 7.00 70 Humidified 09/25/17 08:00 96.3 86 17 176/79 (111) 90 09/25/17 05:39 99.2 70 20 140/67 (91) 95 09/25/17 00:43 98.6 87 20 159/74 (102) 94 09/24/17 23:30 96 T-Piece 6.00 70 09/24/17 21:30 97 T-piece 50 09/24/17 21:30 97 T-piece 50 09/24/17 20:00 97.7 79 17 143/66 (91) 96 I/O 09/24/17 09/24/17 09/24/17 09/25/17 09/25/17 09/25/17 07:00 15:00 23:00 07:00 15:00 23:00 Intake Total 0 ml 1023 ml 226 ml Output Total 1550 ml 850 ml 1000 ml 600 ml Balance -1550 ml -850 ml -1000 ml 1023 ml -374 ml Intake Oral 0 ml 0 ml Tube Feeding 1023 ml 226 ml Output Urine Total 1550 ml 850 ml 1000 ml 600 ml # Bowel Movements 0 0 0 Result Diagram: 09/25/17 1216 Objective Remarks GENERAL: Elderly female,NAD SKIN: Warm and dry. HEAD: Normocephalic. EYES: No scleral icterus. No injection or drainage. NECK: Supple, trachea midline. No JVD or lymphadenopathy. CARDIOVASCULAR: Regular rate and rhythm without murmurs, gallops, or rubs. RESPIRATORY: Breath sounds equal bilaterally. No accessory muscle use. GASTROINTESTINAL: Abdomen soft, non-tender, nondistended. MUSCULOSKELETAL: No cyanosis, or edema. BACK: Nontender without obvious deformity. No CVA tenderness. A/P Assessment and Plan RF,S/P Trach CVA Pneumonia Pleural effusion Pseudomonas Tracheobronchitis, ? colonisation PLAN: Cont trach collar for airway protection Aerosol nebs Supplement 02 Trach care TF Stable pulm DW RN at Chris Rizo MD Sep 25, 2017 19:03
[2017-09-26] VITALS (12 sets, daily range): BP systolic 128–157; BP diastolic 63–75; PULSE 79–94; RESP 16–21; TEMP 95.9–97.4; O2SAT 91–98
[2017-09-26] MEDS: INSULIN ASPART SUPPLEMENTAL SCALE SQ SCH ×4 (00:53→18:30)
[2017-09-26] MEDS: CEFEPIME INJ 2,000 MG in SODIUM CHLORIDE 0.9% INJ 100 ML IV SCH ×3 (04:41→20:00)
[2017-09-26] MEDS: hydrALAZINE HCL 10 MG TAB PEG SCH ×3 (04:49→22:00)
[2017-09-26] MEDS: ARTIFICIAL TEARS OPTH SOLN 15 ML BTL EACH EYE SCH ×3 (04:49→22:00)
[2017-09-26] MEDS: HEPARIN SODIUM - SQ 10,000 UNITS/ML VIAL SQ SCH ×3 (04:49→22:00)
[2017-09-26 07:37] LABS: AUTOMATED NEUTROPHIL # 10.7 TH/MM3 (1.8-7.7); BASOPHIL # 0.1 TH/MM3 (0-0.2); BASOPHIL % 0.9 % (0.0-2.0); EOSINOPHIL # 0.2 TH/MM3 (0-0.4); EOSINOPHIL % 1.8 % (0.0-4.0); HEMATOCRIT 33.3 % (35.0-46.0); HEMOGLOBIN 11.1 GM/DL (11.6-15.3); LYMPH % 9.6 % (9.0-44.0); LYMPHOCYTE # 1.2 TH/MM3 (1.0-4.8); MEAN CELL VOLUME 97.8 FL (80.0-100.0); MEAN CORPUSCULAR HEMOGLOBIN 32.6 PG (27.0-34.0); MEAN CORPUSCULAR HGB CONC 33.4 % (32.0-36.0); MEAN PLATELET VOLUME 9.6 FL (7.0-11.0); MONO % 5.8 % (0.0-8.0); MONOCYTE # 0.8 TH/MM3 (0-0.9); NEUT % 81.9 % (16.0-70.0); PLATELET COUNT 277 TH/MM3 (150-450); RED CELL DISTRIBUTION WIDTH 15.3 % (11.6-17.2)
[2017-09-26] MEDS: BENEPROTEIN POWDER 1 PACK G-TUBE SCH ×3 (08:35→18:00)
[2017-09-26] MEDS: POLYETHYLENE GLYCOL 17 GM PKG PEG SCH (08:35)
[2017-09-26] MEDS: ASPIRIN 325 MG TAB DOBHOFF SCH (08:35)
[2017-09-26] MEDS: CALCIUM/VITAMIN D 250 MG/125 U TAB PO SCH ×3 (08:35→18:29)
[2017-09-26] MEDS: SULFAMETHOXAZOLE-TRIMETHOPRIM DS 800-160 MG TAB PEG SCH ×2 (08:35→21:00)
[2017-09-26] MEDS: LANSOPRAZOLE SOLUTAB 30 MG TAB NG SCH (08:35)
[2017-09-26] MEDS: SODIUM CHLORIDE 0.9% FLUSH 5 ML FLUSH IV FLUSH SCH ×2 (08:36→21:00)
[2017-09-26] MEDS: CHOLECALCIFEROL (VIT D3) 5000 UNIT CAP PO SCH (08:36)
[2017-09-26 08:43] LABS: ALBUMIN 2.3 GM/DL (3.4-5.0); AST (GOT) 20 U/L (15-37); BICARBONATE 27.1 MEQ/L (21.0-32.0); BLOOD UREA NITROGEN 38 MG/DL (7-18); CALCIUM 9.4 MG/DL (8.5-10.1); CHLORIDE 106 MEQ/L (98-107); CREATININE 0.55 MG/DL (0.50-1.00); GLOMERULAR FILTRATION RATE 108 ML/MIN (>89); GLUCOSE,RANDOM 133 MG/DL (74-106); MAGNESIUM 2.1 MG/DL (1.5-2.5); SODIUM (NA) 141 MEQ/L (136-145)
[2017-09-26 08:47] LABS: ALKALINE PHOSPHATASE 148 U/L (45-117); ALT (GPT) 18 U/L (10-53); PHOSPHORUS 2.5 MG/DL (2.5-4.9); TOTAL BILIRUBIN ADULT 0.2 MG/DL (0.2-1.0); TOTAL PROTEIN 7.4 GM/DL (6.4-8.2)
[2017-09-26 09:11] LABS: BANDS 10 % (0-6); LYMPHOCYTES 2 % (9-44); METAMYELOCYTES 2 % (0-1); MONOCYTES 11 % (0-8); MYELOCYTES 3 % (0-0); NEUTROPHIL # MANUAL DIFF 11.2 TH/MM3 (1.8-7.7); POLYS (SEG NEUTROPHILS) 71 % (16-70)
[2017-09-26] MEDS ORDERED: SODIUM POLYSTYRENE SULFONATE SUSP 15 GM/60 ML CUP RECTAL ONE (09:15)
--- NOTE | 2017-09-26 16:49 | HHI.PR ---
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 No new complaint no fever Seen by wound care today Objective Vital Signs Vital Signs Date Time Temp Pulse Resp B/P (MAP) Pulse Ox O2 Delivery O2 Flow Rate FiO2 09/26/17 12:00 96.7 79 17 128/63 (84) 91 09/26/17 09:10 93 T-piece 70 09/26/17 09:10 93 T-piece 70 09/26/17 08:45 T-Piece 11.00 70 Humidified 09/26/17 08:00 96.9 94 17 155/74 (101) 91 09/26/17 05:12 95 T-piece 6.00 70 09/26/17 05:12 95 T-piece 6.00 70 09/26/17 04:33 97.4 88 21 157/72 (100) 96 09/26/17 00:57 96.8 88 21 148/75 (99) 94 09/26/17 00:22 84 09/25/17 20:57 93 T-piece 70 09/25/17 20:57 93 T-piece 70 09/25/17 20:00 81 09/25/17 20:00 98.0 86 18 158/73 (101) 97 09/25/17 19:30 91 11.00 70 I/O 09/25/17 09/25/17 09/25/17 09/26/17 09/26/17 09/26/17 07:00 15:00 23:00 07:00 15:00 23:00 Intake Total 1123 ml 226 ml 584 ml Output Total 1000 ml 600 ml 600 ml Balance -1000 ml 1123 ml -374 ml -600 ml 584 ml Intake Oral 0 ml IV Total 100 ml Tube Feeding 1023 ml 226 ml 584 ml Output Urine Total 1000 ml 600 ml 600 ml # Bowel Movements 0 0 Result Diagram: 09/26/17 0508 09/26/17 0508 Objective Remarks GENERAL: Elderly female,NAD SKIN: Warm and dry. HEAD: Normocephalic. EYES: No scleral icterus. No injection or drainage. NECK: Supple, trachea midline. No JVD or lymphadenopathy. CARDIOVASCULAR: Regular rate and rhythm without murmurs, gallops, or rubs. RESPIRATORY: Breath sounds equal bilaterally. No accessory muscle use. GASTROINTESTINAL: Abdomen soft, non-tender, nondistended. MUSCULOSKELETAL: No cyanosis, or edema. BACK: Nontender without obvious deformity. No CVA tenderness. A/P Assessment and Plan RF,S/P Trach CVA Pneumonia Pleural effusion Pseudomonas Tracheobronchitis, ? colonisation PLAN: Cont trach collar for airway protection Aerosol nebs Supplement 02 Trach care TF Stable pulm Chris Rizo MD Sep 26, 2017 16:49
--- NOTE | 2017-09-26 17:00 | HHI.PR ---
Subjective Remarks As per RN report patient is not having as much secretions as yesterday. Potassium elevated afebrile WBC elevated Objective Vitals Vital Signs Date Time Temp Pulse Resp B/P (MAP) Pulse Ox O2 Delivery O2 Flow Rate FiO2 09/26/17 12:00 96.7 79 17 128/63 (84) 91 09/26/17 09:10 93 T-piece 70 09/26/17 09:10 93 T-piece 70 09/26/17 08:45 T-Piece 11.00 70 Humidified 09/26/17 08:00 96.9 94 17 155/74 (101) 91 09/26/17 05:12 95 T-piece 6.00 70 09/26/17 05:12 95 T-piece 6.00 70 09/26/17 04:33 97.4 88 21 157/72 (100) 96 09/26/17 00:57 96.8 88 21 148/75 (99) 94 09/26/17 00:22 84 09/25/17 20:57 93 T-piece 70 09/25/17 20:57 93 T-piece 70 09/25/17 20:00 81 09/25/17 20:00 98.0 86 18 158/73 (101) 97 09/25/17 19:30 91 11.00 70 I/O 09/25/17 09/25/17 09/25/17 09/26/17 09/26/17 09/26/17 07:00 15:00 23:00 07:00 15:00 23:00 Intake Total 1123 ml 226 ml 584 ml Output Total 1000 ml 600 ml 600 ml Balance -1000 ml 1123 ml -374 ml -600 ml 584 ml Intake Oral 0 ml IV Total 100 ml Tube Feeding 1023 ml 226 ml 584 ml Output Urine Total 1000 ml 600 ml 600 ml # Bowel Movements 0 0 Result Diagram: 09/26/17 0508 09/26/17 0508 Imaging Last Impressions Chest X-Ray 09/25/17 0000 Signed Impressions: Service Date/Time: September 10:51 - CONCLUSION: 1. Increased severe bilateral pulmonary opacity with relative sparing of the apices. 2. Likely moderate-sized to large pleural effusions bilaterally. Robert Knox MD Thoracentesis 08/05/17 1535 Signed Impressions: Service Date/Time: Saturday, August 05, 2017 16:08 - CONCLUSION: Uncomplicated CT-guided thoracentesis. Sage Adler MD Chest Ultrasound 08/02/17 0000 Signed Impressions: Service Date/Time: Tuesday, August 01, 2017 22:06 - CONCLUSION: 1. Moderate right pleural effusion, as above. Alejo De La Vega MD Hip and Pelvis X-Ray 07/09/17 0000 Signed Impressions: Service Date/Time: Sunday, July 09, 2017 14:04 - CONCLUSION: Anatomic alignment. Ricardo Middleton MD FACR Liver Ultrasound 06/19/17 0000 Signed Impressions: Service Date/Time: June 13:20 - CONCLUSION: 1. Mildly increased echotexture of the liver characteristic of hepatic steatosis. 2. Gallbladder sludge. Obdulio Sam MD Abdomen X-Ray 06/16/17 0000 Signed Impressions: Service Date/Time: Friday, June 16, 2017 04:48 - CONCLUSION: 1. Continued small bowel ileus. There has been no significant change when compared to the prior exam. Toy Duran MD Head CT 05/15/17 0000 Signed Impressions: Service Date/Time: May 19:59 - CONCLUSION: 1. 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 2. No bleed or new/acute infarct. Obdulio Simms MD Gall Bladder Ultrasound 05/08/17 0000 Signed Impressions: Service Date/Time: May 08:23 - CONCLUSION: Focally unremarkable appearance of the gallbladder Obdulio Chun MD Abdomen/Pelvis CT 05/07/17 0000 Signed Impressions: Service Date/Time: Sunday, May 07, 2017 13:23 - CONCLUSION: 1. Large left pneumothorax. 2. Bilateral lower lobe consolidation and bilateral moderate size pleural effusions. 3. Significant soft tissue thickening of the right lateral chest wall and left gluteus muscle. 4. Mild ascites. The findings were called to Dr. Carney. Deangelo Zamora MD Chest CT 04/30/17 0000 Signed Impressions: Service Date/Time: Sunday, April 30, 2017 09:20 - CONCLUSION: 1. Bilateral pulmonary infiltrates more pronounced within the lower lobes with tiny bilateral pleural effusions. Material seen filling the lower lobe bronchi bilaterally either related to purulent material or perhaps mucus plugging. Deangelo Wren Jr., MD Carotid Artery Ultrasound 04/24/17 0000 Signed Impressions: Service Date/Time: April 09:45 - CONCLUSION: 1. No hemodynamically significant carotid artery stenosis. Arnie Middleton MD Hip X-Ray 04/21/17 0000 Signed Impressions: Service Date/Time: Friday, April 21, 2017 11:36 - CONCLUSION: Fluoroscopic images during placement of intramedullary siomara left femur. Benja Ramsey MD Objective Remarks GENERAL: Unresponsive to verbal physical stimuli. SKIN: Warm and dry. HEAD: Normocephalic. EYES: No scleral icterus. No injection or drainage. NECK: Supple, trachea midline. No JVD or lymphadenopathy. T piece in place, no redness over trach insertion site. CARDIOVASCULAR: Regular rate and rhythm without murmurs, gallops, or rubs. RESPIRATORY: BL rhonchi mainly expiratory. GASTROINTESTINAL: Abdomen soft, non-tender, nondistended. MUSCULOSKELETAL: No cyanosis, or edema. BACK: Nontender without obvious deformity. No CVA tenderness. Procedures echo 04/24/2017 The left ventricular systolic function is low normal with an estimated ejection fraction in the range of 50- 55%. Mild concentric left ventricular hypertrophy. Normal left ventricular size. [id number] mitral valve regurgitation. Medications and IVs Current Medications Medications (Trade) Dose Ordered Sig/Zeferino Route Start Time Stop Time Status Last Admin (Narcan Inj) 0.4 mg UNSCH PRN IV 04/20/17 17:15 (Oscal-D 250-125) 250 mg TID PO 04/21/17 13:00 09/26/17 13:10 (Vitamin D3) 5,000 units DAILY PO 04/22/17 09:00 09/26/17 08:36 (NS Flush) 2 ml BID IV FLUSH 04/24/17 21:00 09/26/17 08:36 (NS Flush) 2 ml UNSCH PRN IV FLUSH 04/24/17 09:30 09/17/17 08:48 (Aspirin) 325 mg DAILY DOBHOFF 04/27/17 09:00 09/26/17 08:35 (Prevacid Odt) 30 mg DAILY NG 05/08/17 09:00 09/26/17 08:35 (Beneprotein Powder) 1 pack TID G-TUBE 05/12/17 13:00 09/26/17 13:00 (Glucagon Inj) 1 mg UNSCH PRN OTHER 05/21/17 13:15 (D50w (Syr) Inj) 50 ml UNSCH PRN IV PUSH 05/22/17 17:15 07/27/17 09:09 (Tears Naturale Opth Soln) 1 drop Q8HR EACH EYE 06/12/17 07:15 09/26/17 14:38 (Nitroglycerin 2% Oint) 2 inch Q6H PRN TOPICAL 06/21/17 08:00 06/30/17 14:37 (Miralax) 17 gm DAILY PEG 07/09/17 09:00 09/26/17 08:35 (Catapres) 0.1 mg Q6H PRN PO 07/12/17 00:30 08/23/17 16:22 (Heparin Inj) 5,000 units Q8HR SQ 07/15/17 08:00 09/26/17 14:38 (NovoLOG SUPPLEMENTAL SCALE) 1 Q6HR SQ 07/21/17 18:00 09/26/17 13:11 (Duoneb Neb) 1 ampule Q6HR NEB PRN NEB 08/10/17 14:00 09/05/17 12:42 (Norvasc) 10 mg DAILY PO 09/02/17 09:00 09/26/17 08:35 (Lopressor) 12.5 mg Q12HR PO 09/05/17 21:00 Future Hold 09/06/17 08:46 (Pill Splitter) 1 ea UNSCH PRN OTHER 09/05/17 11:00 (Bactrim Ds 800-160 Mg) 1 tab Q12HR PEG 09/09/17 21:00 09/26/17 08:35 (Tylenol) 500 mg Q6H PRN PEG 09/16/17 16:15 09/16/17 16:36 (Levemir Inj) 12 units HS SQ 09/21/17 21:00 09/25/17 20:42 (Apresoline) 10 mg Q8HR PEG 09/24/17 14:00 09/26/17 14:37 Cefepime HCl 2000 mg/Sodium Chloride 100 ml @ 200 mls/hr Q8H IV 09/25/17 12:00 09/26/17 13:10 A/P Problem List: (1) Acute ischemic left middle cerebral artery (MCA) stroke ICD Code: I63.512 - Cerebral infarction due to unspecified occlusion or stenosis of left middle cerebral artery Status: Acute (2) Acute respiratory failure ICD Code: J96.00 - Acute respiratory failure, unspecified whether with hypoxia or hypercapnia (3) Right hemiplegia ICD Code: G81.91 - Hemiplegia, unspecified affecting right dominant side Status: Acute (4) Sacral decubitus ulcer ICD Code: L89.159 - Pressure ulcer of sacral region, unspecified stage Status: Chronic Assessment and Plan 77 y/o female with HTN, DM admitted for DKA and hip fracture s/p large CVA. Hypernatremia Hyperkalemia - s/p Kayexalate - Continue free water flushes. - Na corrected to 138. - Potassium 5.1 --> 5.9 --> 4.2 - Will check BMP in the AM. - 09/25 Labs not checked since 09/22. Will order BMP and CBC with differential. - 09/26 K elevated at 5.3 - will give Kayexalate. check BMP in am. Acute kidney injury - Likely prerenal azotemia, resolved after IV fluid administration. Continue to monitor BUN/creatinine, avoid nephrotoxins and monitor strict I's and O's. Chronic respiratory failure Continue tracheostomy Continue oxygen Supportive care Respiratory therapy following Pseudomonas from 08/25/17 appears to be a colonization Pulmonology following 09/25 patient with thick yellow sputum production. Previous sputum culture with Pseudomonas. I will start on IV cefepime and obtaining a sputum cultures. 09/26 Continue IV Cefepime for now since wbc elevated at 13 k. Urine culture is growing Pseudomonas. 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 Diabetes mellitus type 2 Continue Levemir 12 units Q12hrs. Insulin sliding scale Glucerna 1.5 for tube feed. 09/26 Tolerating tube feeding. Blood sugar level severely elevated in the 200's. Will increase Levemir to 12 units SQ BID, continue SSI. Subcutaneous hip fracture Surgically repaired 04/21/17 No further need for monitoring Hypertension Continue present treatments - Amlodipine 10mg Qday. Reduce Lisinopril from 40mg Q12 to Qday. Serum K+ was 5.1 on 09/11/2017. Lisinopril should be not used more than 40mg Qday for this patient. Adjust as needed 09/25 blood pressure labile and severely elevated today with a systolic blood pressure in the 170s. I will start the patient on doxazosin to the PEG tube for blood pressure control. Continue to monitor vital signs. 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 Problem Qualifiers (1) Sacral decubitus ulcer: Qualified Codes: L89.152 - Pressure ulcer of sacral region, stage 2 Aleksandar Alford MD Sep 26, 2017 17:00
[2017-09-26] MEDS: INSULIN DETEMIR 100 UNITS/ML VIAL SQ SCH (21:00)
[2017-09-27] VITALS (9 sets, daily range): BP systolic 139–154; BP diastolic 66–72; PULSE 83–90; RESP 16–20; TEMP 95.6–98.3; O2SAT 94–99
[2017-09-27] MEDS: INSULIN ASPART SUPPLEMENTAL SCALE SQ SCH ×5 (00:52→23:57)
[2017-09-27] MEDS: CEFEPIME INJ 2,000 MG in SODIUM CHLORIDE 0.9% INJ 100 ML IV SCH ×3 (04:48→23:27)
[2017-09-27] MEDS: hydrALAZINE HCL 10 MG TAB PEG SCH ×3 (04:49→23:28)
[2017-09-27] MEDS: ARTIFICIAL TEARS OPTH SOLN 15 ML BTL EACH EYE SCH ×3 (04:49→22:00)
[2017-09-27] MEDS: HEPARIN SODIUM - SQ 10,000 UNITS/ML VIAL SQ SCH ×3 (05:00→23:27)
[2017-09-27] MEDS: CHOLECALCIFEROL (VIT D3) 5000 UNIT CAP PO SCH (08:09)
[2017-09-27] MEDS: ASPIRIN 325 MG TAB DOBHOFF SCH (08:10)
[2017-09-27] MEDS: CALCIUM/VITAMIN D 250 MG/125 U TAB PO SCH ×3 (08:10→18:00)
[2017-09-27] MEDS: SODIUM CHLORIDE 0.9% FLUSH 5 ML FLUSH IV FLUSH SCH ×2 (08:10→21:00)
[2017-09-27] MEDS: SULFAMETHOXAZOLE-TRIMETHOPRIM DS 800-160 MG TAB PEG SCH ×2 (08:10→23:28)
[2017-09-27] MEDS: LANSOPRAZOLE SOLUTAB 30 MG TAB NG SCH (08:10)
[2017-09-27] MEDS: POLYETHYLENE GLYCOL 17 GM PKG PEG SCH (08:10)
[2017-09-27] MEDS: BENEPROTEIN POWDER 1 PACK G-TUBE SCH ×3 (09:00→18:00)
[2017-09-27 09:22] LABS: AUTOMATED NEUTROPHIL # 9.3 TH/MM3 (1.8-7.7); BASOPHIL # 0.2 TH/MM3 (0-0.2); BASOPHIL % 1.3 % (0.0-2.0); EOSINOPHIL # 0.5 TH/MM3 (0-0.4); EOSINOPHIL % 4.4 % (0.0-4.0); HEMATOCRIT 30.6 % (35.0-46.0); HEMOGLOBIN 10.2 GM/DL (11.6-15.3); LYMPH % 10.5 % (9.0-44.0); LYMPHOCYTE # 1.3 TH/MM3 (1.0-4.8); MEAN CORPUSCULAR HEMOGLOBIN 32.5 PG (27.0-34.0); MEAN CORPUSCULAR HGB CONC 33.5 % (32.0-36.0); MEAN PLATELET VOLUME 8.8 FL (7.0-11.0); MONO % 5.6 % (0.0-8.0); MONOCYTE # 0.7 TH/MM3 (0-0.9); NEUT % 78.2 % (16.0-70.0); PLATELET COUNT 327 TH/MM3 (150-450); RED BLOOD COUNT 3.15 MIL/MM3 (4.00-5.30); RED CELL DISTRIBUTION WIDTH 15.3 % (11.6-17.2); WHITE BLOOD COUNT 11.9 TH/MM3 (4.0-11.0)
[2017-09-27 09:50] LABS: BICARBONATE 27.8 MEQ/L (21.0-32.0); CALCIUM 9.7 MG/DL (8.5-10.1); CREATININE 0.52 MG/DL (0.50-1.00)
[2017-09-27 10:09] LABS: BANDS 5 % (0-6); BASOPHILS 1 % (0-2); LYMPHOCYTES 16 % (9-44); MONOCYTES 10 % (0-8); MYELOCYTES 4 % (0-0); NEUTROPHIL # MANUAL DIFF 8.7 TH/MM3 (1.8-7.7); POLYS (SEG NEUTROPHILS) 64 % (16-70)
[2017-09-27 10:10] LABS: POLYCHROMASIA 2.1 % (0.0-1.9)
[2017-09-27] MEDS ORDERED: SODIUM POLYSTYRENE SULFONATE SUSP 15 GM/60 ML CUP PEG ONE (17:15)
--- NOTE | 2017-09-27 17:17 | HHI.PR ---
Subjective Remarks Patient is non verbal afebrile Denies cp/sob. K better but still elevated. Objective Vitals Vital Signs Date Time Temp Pulse Resp B/P (MAP) Pulse Ox O2 Delivery O2 Flow Rate FiO2 09/27/17 16:00 95.6 86 20 144/67 (92) 99 09/27/17 12:00 98.3 83 20 149/72 (97) 96 09/27/17 11:10 Nasal Cannula 5.00 70 09/27/17 08:00 97.6 90 20 154/71 (98) 94 09/27/17 05:20 96 T-piece 6.00 70 09/27/17 05:20 96 T-piece 6.00 70 09/27/17 04:00 95.7 87 16 141/69 (93) 94 09/27/17 00:00 95.9 87 16 139/66 (90) 97 09/26/17 20:40 83 09/26/17 20:40 97 5.00 70 09/26/17 20:00 95.9 84 16 149/72 (97) 98 09/26/17 17:41 93 T-piece 6.00 70 09/26/17 17:40 93 T-piece 6.00 70 I/O 09/26/17 09/26/17 09/26/17 09/27/17 09/27/17 09/27/17 07:00 15:00 23:00 07:00 15:00 23:00 Intake Total 584 ml 0 ml 0 ml Output Total 600 ml 100 ml Balance -600 ml 584 ml -100 ml 0 ml Intake Oral 0 ml 0 ml Tube Feeding 584 ml Output Urine Total 600 ml 100 ml # Voids 3 3 4 # Bowel Movements 1 2 Result Diagram: 09/27/17 0840 09/27/17 0840 Imaging Last 72 hours Impressions Chest X-Ray 09/25/17 0000 Signed Impressions: Service Date/Time: September 10:51 - CONCLUSION: 1. Increased severe bilateral pulmonary opacity with relative sparing of the apices. 2. Likely moderate-sized to large pleural effusions bilaterally. Robert Knox MD Objective Remarks GENERAL: Unresponsive to verbal physical stimuli. SKIN: Warm and dry. HEAD: Normocephalic. EYES: No scleral icterus. No injection or drainage. NECK: Supple, trachea midline. No JVD or lymphadenopathy. T piece in place, no redness over trach insertion site. CARDIOVASCULAR: Regular rate and rhythm without murmurs, gallops, or rubs. RESPIRATORY: BL rhonchi mainly expiratory. GASTROINTESTINAL: Abdomen soft, non-tender, nondistended. MUSCULOSKELETAL: No cyanosis, or edema. BACK: Nontender without obvious deformity. No CVA tenderness. Procedures echo 04/24/2017 The left ventricular systolic function is low normal with an estimated ejection fraction in the range of 50- 55%. Mild concentric left ventricular hypertrophy. Normal left ventricular size. [id number] mitral valve regurgitation. Medications and IVs Current Medications Medications (Trade) Dose Ordered Sig/Zeferino Route Start Time Stop Time Status Last Admin (Narcan Inj) 0.4 mg UNSCH PRN IV 04/20/17 17:15 (Oscal-D 250-125) 250 mg TID PO 04/21/17 13:00 09/27/17 13:00 (Vitamin D3) 5,000 units DAILY PO 04/22/17 09:00 09/27/17 08:09 (NS Flush) 2 ml BID IV FLUSH 04/24/17 21:00 09/27/17 08:10 (NS Flush) 2 ml UNSCH PRN IV FLUSH 04/24/17 09:30 09/17/17 08:48 (Aspirin) 325 mg DAILY DOBHOFF 04/27/17 09:00 09/27/17 08:10 (Prevacid Odt) 30 mg DAILY NG 05/08/17 09:00 09/27/17 08:10 (Beneprotein Powder) 1 pack TID G-TUBE 05/12/17 13:00 09/27/17 13:00 (Glucagon Inj) 1 mg UNSCH PRN OTHER 05/21/17 13:15 (D50w (Syr) Inj) 50 ml UNSCH PRN IV PUSH 05/22/17 17:15 07/27/17 09:09 (Tears Naturale Opth Soln) 1 drop Q8HR EACH EYE 06/12/17 07:15 09/27/17 14:00 (Nitroglycerin 2% Oint) 2 inch Q6H PRN TOPICAL 06/21/17 08:00 06/30/17 14:37 (Miralax) 17 gm DAILY PEG 07/09/17 09:00 09/27/17 08:10 (Catapres) 0.1 mg Q6H PRN PO 07/12/17 00:30 08/23/17 16:22 (Heparin Inj) 5,000 units Q8HR SQ 07/15/17 08:00 09/27/17 14:00 (NovoLOG SUPPLEMENTAL SCALE) 1 Q6HR SQ 07/21/17 18:00 09/27/17 12:00 (Duoneb Neb) 1 ampule Q6HR NEB PRN NEB 08/10/17 14:00 09/05/17 12:42 (Norvasc) 10 mg DAILY PO 09/02/17 09:00 09/27/17 08:10 (Lopressor) 12.5 mg Q12HR PO 09/05/17 21:00 Future Hold 09/06/17 08:46 (Pill Splitter) 1 ea UNSCH PRN OTHER 09/05/17 11:00 (Bactrim Ds 800-160 Mg) 1 tab Q12HR PEG 09/09/17 21:00 09/27/17 08:10 (Tylenol) 500 mg Q6H PRN PEG 09/16/17 16:15 09/16/17 16:36 (Levemir Inj) 12 units HS SQ 09/21/17 21:00 09/26/17 21:00 (Apresoline) 10 mg Q8HR PEG 09/24/17 14:00 09/27/17 14:00 Cefepime HCl 2000 mg/Sodium Chloride 100 ml @ 200 mls/hr Q8H IV 09/25/17 12:00 09/27/17 12:00 A/P Problem List: (1) Acute ischemic left middle cerebral artery (MCA) stroke ICD Code: I63.512 - Cerebral infarction due to unspecified occlusion or stenosis of left middle cerebral artery Status: Acute (2) Acute respiratory failure ICD Code: J96.00 - Acute respiratory failure, unspecified whether with hypoxia or hypercapnia (3) Right hemiplegia ICD Code: G81.91 - Hemiplegia, unspecified affecting right dominant side Status: Acute (4) Sacral decubitus ulcer ICD Code: L89.159 - Pressure ulcer of sacral region, unspecified stage Status: Chronic Assessment and Plan 77 y/o female with HTN, DM admitted for DKA and hip fracture s/p large CVA. Hypernatremia Hyperkalemia - s/p Kayexalate - Continue free water flushes. - Na corrected to 138. - Potassium 5.1 --> 5.9 --> 4.2 - Will check BMP in the AM. - 09/25 Labs not checked since 09/22. Will order BMP and CBC with differential. - 09/26 K elevated at 5.3 - will give Kayexalate. check BMP in am. - 09/27 K still elevated at 5.2 - repeat Kayexalate. Check BMP in am. Acute kidney injury - Likely prerenal azotemia, resolved after IV fluid administration. Continue to monitor BUN/creatinine, avoid nephrotoxins and monitor strict I's and O's. Chronic respiratory failure Continue tracheostomy Continue oxygen Supportive care Respiratory therapy following Pseudomonas from 08/25/17 appears to be a colonization Pulmonology following 09/25 patient with thick yellow sputum production. Previous sputum culture with Pseudomonas. I will start on IV cefepime and obtaining a sputum cultures. 09/26 Continue IV Cefepime for now since wbc elevated at 13 k. 09/27 WBCs trending down. Continue IV cefepime. Sputum cultures is growing Pseudomonas SP. Chest x-ray obtained on 09/25 and reviewed by me showed increased severe bilateral pulmonary opacity with relative sparing of the apices. Patient developed a hospital acquired pna. Repeat cxr in am. 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 Diabetes mellitus type 2 Continue Levemir 12 units Q12hrs. Insulin sliding scale Glucerna 1.5 for tube feed. 09/26 Tolerating tube feeding. Blood sugar level severely elevated in the 200's. Will increase Levemir to 12 units SQ BID, continue SSI. 09/27 Blood sugars still severely elevated, Will increase Levemir to 16 units SQ BID. Continue SSI. Continue to monitor Accu-Cheks. Subcutaneous hip fracture Surgically repaired 04/21/17 No further need for monitoring Hypertension Continue present treatments - Amlodipine 10mg Qday. Reduce Lisinopril from 40mg Q12 to Qday. Serum K+ was 5.1 on 09/11/2017. Lisinopril should be not used more than 40mg Qday for this patient. Adjust as needed 09/25 blood pressure labile and severely elevated today with a systolic blood pressure in the 170s. I will start the patient on doxazosin to the PEG tube for blood pressure control. Continue to monitor vital signs. 09/27 blood pressure is better controlled. Continue doxazosin. 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 On IV antibiotics. Problem Qualifiers (1) Acute respiratory failure: Qualified Codes: J96.00 - Acute respiratory failure, unspecified whether with hypoxia or hypercapnia (2) Sacral decubitus ulcer: Qualified Codes: L89.152 - Pressure ulcer of sacral region, stage 2 Aleksandar Alford MD Sep 27, 2017 17:17
--- NOTE | 2017-09-27 20:56 | HHI.PR ---
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 No new complaint no fever Objective Vital Signs Vital Signs Date Time Temp Pulse Resp B/P (MAP) Pulse Ox O2 Delivery O2 Flow Rate FiO2 09/27/17 17:26 99 T-piece 28 09/27/17 17:26 95 T-piece 70 09/27/17 16:00 95.6 86 20 144/67 (92) 99 09/27/17 12:00 98.3 83 20 149/72 (97) 96 09/27/17 11:10 Nasal Cannula 5.00 70 09/27/17 08:00 97.6 90 20 154/71 (98) 94 09/27/17 05:20 96 T-piece 6.00 70 09/27/17 05:20 96 T-piece 6.00 70 09/27/17 04:00 95.7 87 16 141/69 (93) 94 09/27/17 00:00 95.9 87 16 139/66 (90) 97 I/O 09/26/17 09/26/17 09/26/17 09/27/17 09/27/17 09/27/17 07:00 15:00 23:00 07:00 15:00 23:00 Intake Total 584 ml 0 ml 0 ml 0 ml Output Total 600 ml 100 ml Balance -600 ml 584 ml -100 ml 0 ml 0 ml Intake Oral 0 ml 0 ml 0 ml Tube Feeding 584 ml Output Urine Total 600 ml 100 ml # Voids 3 3 4 4 # Bowel Movements 1 2 1 Result Diagram: 09/27/17 0840 09/27/17 0840 Objective Remarks GENERAL: Elderly female,NAD SKIN: Warm and dry. HEAD: Normocephalic. EYES: No scleral icterus. No injection or drainage. NECK: Supple, trachea midline. No JVD or lymphadenopathy. CARDIOVASCULAR: Regular rate and rhythm without murmurs, gallops, or rubs. RESPIRATORY: Breath sounds equal bilaterally. No accessory muscle use. GASTROINTESTINAL: Abdomen soft, non-tender, nondistended. MUSCULOSKELETAL: No cyanosis, or edema. BACK: Nontender without obvious deformity. No CVA tenderness. A/P Assessment and Plan RF,S/P Trach CVA Pneumonia Pleural effusion Pseudomonas Tracheobronchitis, ? colonisation PLAN: Cont trach collar for airway protection Aerosol nebs Supplement 02 Trach care TF Stable pulm Chris Rizo MD Sep 27, 2017 20:56
[2017-09-27] MEDS: INSULIN DETEMIR 100 UNITS/ML VIAL SQ SCH (23:58)
[2017-09-28] VITALS (9 sets, daily range): BP systolic 96–158; BP diastolic 51–75; PULSE 70–91; RESP 18–26; TEMP 96.6–99.2; O2SAT 93–100
[2017-09-28] MEDS: CEFEPIME INJ 2,000 MG in SODIUM CHLORIDE 0.9% INJ 100 ML IV SCH ×3 (04:25→21:42)
[2017-09-28] MEDS: hydrALAZINE HCL 10 MG TAB PEG SCH ×3 (04:32→21:42)
[2017-09-28] MEDS: HEPARIN SODIUM - SQ 10,000 UNITS/ML VIAL SQ SCH ×3 (04:32→21:42)
[2017-09-28] MEDS: ARTIFICIAL TEARS OPTH SOLN 15 ML BTL EACH EYE SCH ×3 (06:00→21:43)
[2017-09-28] MEDS: INSULIN ASPART SUPPLEMENTAL SCALE SQ SCH ×3 (06:37→17:23)
[2017-09-28] MEDS: CHOLECALCIFEROL (VIT D3) 5000 UNIT CAP PO SCH (08:05)
[2017-09-28] MEDS: LANSOPRAZOLE SOLUTAB 30 MG TAB NG SCH (08:05)
[2017-09-28] MEDS: INSULIN DETEMIR 100 UNITS/ML VIAL SQ SCH ×2 (08:06→21:47)
[2017-09-28] MEDS: SULFAMETHOXAZOLE-TRIMETHOPRIM DS 800-160 MG TAB PEG SCH ×2 (08:06→21:42)
[2017-09-28] MEDS: SODIUM CHLORIDE 0.9% FLUSH 5 ML FLUSH IV FLUSH SCH ×2 (08:07→21:42)
[2017-09-28] MEDS: POLYETHYLENE GLYCOL 17 GM PKG PEG SCH (08:07)
[2017-09-28] MEDS: CALCIUM/VITAMIN D 250 MG/125 U TAB PO SCH ×3 (08:07→17:23)
[2017-09-28] MEDS: BENEPROTEIN POWDER 1 PACK G-TUBE SCH ×3 (08:07→17:25)
[2017-09-28] MEDS: ASPIRIN 325 MG TAB DOBHOFF SCH (08:07)
[2017-09-28 09:22] LABS: AUTOMATED NEUTROPHIL # 9.2 TH/MM3 (1.8-7.7); BASOPHIL # 0.1 TH/MM3 (0-0.2); BASOPHIL % 1.1 % (0.0-2.0); EOSINOPHIL # 0.4 TH/MM3 (0-0.4); EOSINOPHIL % 3.5 % (0.0-4.0); HEMATOCRIT 31.5 % (35.0-46.0); HEMOGLOBIN 10.3 GM/DL (11.6-15.3); LYMPH % 11.4 % (9.0-44.0); LYMPHOCYTE # 1.4 TH/MM3 (1.0-4.8); MEAN CELL VOLUME 96.8 FL (80.0-100.0); MEAN CORPUSCULAR HEMOGLOBIN 31.5 PG (27.0-34.0); MEAN CORPUSCULAR HGB CONC 32.6 % (32.0-36.0); MEAN PLATELET VOLUME 8.5 FL (7.0-11.0); MONO % 6.7 % (0.0-8.0); MONOCYTE # 0.8 TH/MM3 (0-0.9); NEUT % 77.3 % (16.0-70.0); PLATELET COUNT 355 TH/MM3 (150-450); RED BLOOD COUNT 3.26 MIL/MM3 (4.00-5.30); RED CELL DISTRIBUTION WIDTH 15.3 % (11.6-17.2)
[2017-09-28 09:37] LABS: BICARBONATE 27.7 MEQ/L (21.0-32.0); CALCIUM 9.7 MG/DL (8.5-10.1); CREATININE 0.72 MG/DL (0.50-1.00)
[2017-09-28 09:58] LABS: BANDS 5 % (0-6); LYMPHOCYTES 13 % (9-44); MONOCYTES 6 % (0-8); MYELOCYTES 3 % (0-0); NEUTROPHIL # MANUAL DIFF 9.7 TH/MM3 (1.8-7.7); POLYCHROMASIA 2.2 % (0.0-1.9); POLYS (SEG NEUTROPHILS) 73 % (16-70)
[2017-09-28] MEDS: DOXAZOSIN MESYLATE 1 MG TAB PO SCH (10:00)
--- NOTE | 2017-09-28 10:02 | RADRPT ---
EXAM DATE/TIME: 09/28/2017 09:36 [facility] COMPARISON: CHEST SINGLE AP, September 25, 2017, 10:51. INDICATIONS : Respiratory failure MEDICAL HISTORY : Stroke. Hysterectomy diabetes, anxiety SURGICAL HISTORY : tracheostomy ENCOUNTER: Subsequent ACUITY: 3 weeks PAIN SCORE: Non-responsive. LOCATION: chest FINDINGS: Endotracheal tube with the tip overlying the level of the clavicles. There is near complete opacifica tion of the right hemithorax with layering hazy increased density within the left hemithorax which aldridge s improved as compared to the prior exam. There is no evidence of pneumothorax. The heart is obscured . CONCLUSION: Improving lung exam. The right hemithorax remains almost completely opacified, however, there is impr yasmin aeration of the left hemithorax. Jenniffer Bedoya MD on September 28, 2017 at 9:59 Board Certified Radiologist. This report was verified electronically.
--- NOTE | 2017-09-28 13:25 | HHI.PR ---
Subjective Remarks No reported diarrhea. as per RN lungs sound very good today. No further thick yellow sputum noted on trach and vent tubes. Patient is afebrile. Objective Vitals Vital Signs Date Time Temp Pulse Resp B/P (MAP) Pulse Ox O2 Delivery O2 Flow Rate FiO2 09/28/17 12:00 98.5 88 24 144/70 (94) 93 09/28/17 11:44 94 T-piece 50 09/28/17 11:44 94 T-piece 50 09/28/17 08:00 98.0 87 20 158/75 (102) 98 09/28/17 04:00 96.7 86 18 153/74 (100) 99 09/28/17 00:00 99.2 91 18 145/69 (94) 98 09/27/17 21:50 98 Trach Collar 70 09/27/17 21:50 98 Trach Collar 70 09/27/17 21:45 Trach Collar 5.00 09/27/17 20:00 96.8 88 18 148/68 (94) 99 09/27/17 17:26 99 T-piece 28 09/27/17 17:26 95 T-piece 70 09/27/17 16:00 95.6 86 20 144/67 (92) 99 I/O 09/27/17 09/27/17 09/27/17 09/28/17 09/28/17 09/28/17 07:00 15:00 23:00 07:00 15:00 23:00 Intake Total 0 ml 0 ml 800 ml Balance 0 ml 0 ml 800 ml Intake Oral 0 ml 0 ml 0 ml Tube Feeding 500 ml Tube Irrigant 300 ml # Voids 3 4 4 4 # Bowel Movements 2 1 1 Result Diagram: 09/28/17 0900 09/28/17 0900 Imaging Last Impressions Chest X-Ray 09/28/17 0000 Signed Impressions: Service Date/Time: Thursday, September 28, 2017 09:36 - CONCLUSION: Improving lung exam. The right hemithorax remains almost completely opacified, however, there is improved aeration of the left hemithorax. Jenniffer Bedoya MD Thoracentesis 08/05/17 1535 Signed Impressions: Service Date/Time: Saturday, August 05, 2017 16:08 - CONCLUSION: Uncomplicated CT-guided thoracentesis. Sage Adler MD Chest Ultrasound 08/02/17 0000 Signed Impressions: Service Date/Time: Tuesday, August 01, 2017 22:06 - CONCLUSION: 1. Moderate right pleural effusion, as above. Alejo De La Vega MD Hip and Pelvis X-Ray 07/09/17 0000 Signed Impressions: Service Date/Time: Sunday, July 09, 2017 14:04 - CONCLUSION: Anatomic alignment. Ricardo Middleton MD FACR Liver Ultrasound 06/19/17 0000 Signed Impressions: Service Date/Time: June 13:20 - CONCLUSION: 1. Mildly increased echotexture of the liver characteristic of hepatic steatosis. 2. Gallbladder sludge. Obdulio Sam MD Abdomen X-Ray 06/16/17 0000 Signed Impressions: Service Date/Time: Friday, June 16, 2017 04:48 - CONCLUSION: 1. Continued small bowel ileus. There has been no significant change when compared to the prior exam. Toy Duran MD Head CT 05/15/17 0000 Signed Impressions: Service Date/Time: May 19:59 - CONCLUSION: 1. 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 2. No bleed or new/acute infarct. Obdulio Simms MD Gall Bladder Ultrasound 05/08/17 0000 Signed Impressions: Service Date/Time: May 08:23 - CONCLUSION: Focally unremarkable appearance of the gallbladder Obdulio Chun MD Abdomen/Pelvis CT 05/07/17 0000 Signed Impressions: Service Date/Time: Sunday, May 07, 2017 13:23 - CONCLUSION: 1. Large left pneumothorax. 2. Bilateral lower lobe consolidation and bilateral moderate size pleural effusions. 3. Significant soft tissue thickening of the right lateral chest wall and left gluteus muscle. 4. Mild ascites. The findings were called to Dr. Carney. Deangelo Zamora MD Chest CT 04/30/17 0000 Signed Impressions: Service Date/Time: Sunday, April 30, 2017 09:20 - CONCLUSION: 1. Bilateral pulmonary infiltrates more pronounced within the lower lobes with tiny bilateral pleural effusions. Material seen filling the lower lobe bronchi bilaterally either related to purulent material or perhaps mucus plugging. Deangelo Wren Jr., MD Carotid Artery Ultrasound 04/24/17 0000 Signed Impressions: Service Date/Time: April 09:45 - CONCLUSION: 1. No hemodynamically significant carotid artery stenosis. Arnie Middleton MD Hip X-Ray 04/21/17 0000 Signed Impressions: Service Date/Time: Friday, April 21, 2017 11:36 - CONCLUSION: Fluoroscopic images during placement of intramedullary siomara left femur. Benja Ramsey MD Objective Remarks GENERAL: Unresponsive to verbal physical stimuli. SKIN: Warm and dry. HEAD: Normocephalic. EYES: No scleral icterus. No injection or drainage. NECK: Supple, trachea midline. No JVD or lymphadenopathy. T piece in place, no redness over trach insertion site. CARDIOVASCULAR: Regular rate and rhythm without murmurs, gallops, or rubs. RESPIRATORY: Scattered rhonchi audible on the right lung, left lung is clear to auscultation. GASTROINTESTINAL: Abdomen soft, non-tender, nondistended. MUSCULOSKELETAL: No cyanosis, or edema. BACK: Nontender without obvious deformity. No CVA tenderness. Procedures echo 04/24/2017 The left ventricular systolic function is low normal with an estimated ejection fraction in the range of 50- 55%. Mild concentric left ventricular hypertrophy. Normal left ventricular size. [id number] mitral valve regurgitation. Medications and IVs Current Medications Medications (Trade) Dose Ordered Sig/Zeferino Route Start Time Stop Time Status Last Admin (Narcan Inj) 0.4 mg UNSCH PRN IV 04/20/17 17:15 (Oscal-D 250-125) 250 mg TID PO 04/21/17 13:00 09/28/17 13:00 (Vitamin D3) 5,000 units DAILY PO 04/22/17 09:00 09/28/17 08:05 (NS Flush) 2 ml BID IV FLUSH 04/24/17 21:00 09/28/17 08:07 (NS Flush) 2 ml UNSCH PRN IV FLUSH 04/24/17 09:30 09/17/17 08:48 (Aspirin) 325 mg DAILY DOBHOFF 04/27/17 09:00 09/28/17 08:07 (Prevacid Odt) 30 mg DAILY NG 05/08/17 09:00 09/28/17 08:05 (Beneprotein Powder) 1 pack TID G-TUBE 05/12/17 13:00 09/28/17 13:00 (Glucagon Inj) 1 mg UNSCH PRN OTHER 05/21/17 13:15 (D50w (Syr) Inj) 50 ml UNSCH PRN IV PUSH 05/22/17 17:15 07/27/17 09:09 (Tears Naturale Opth Soln) 1 drop Q8HR EACH EYE 06/12/17 07:15 09/28/17 08:06 (Nitroglycerin 2% Oint) 2 inch Q6H PRN TOPICAL 06/21/17 08:00 06/30/17 14:37 (Miralax) 17 gm DAILY PEG 07/09/17 09:00 09/28/17 08:07 (Catapres) 0.1 mg Q6H PRN PO 07/12/17 00:30 08/23/17 16:22 (Heparin Inj) 5,000 units Q8HR SQ 07/15/17 08:00 09/28/17 04:32 (NovoLOG SUPPLEMENTAL SCALE) 1 Q6HR SQ 07/21/17 18:00 09/28/17 12:00 (Duoneb Neb) 1 ampule Q6HR NEB PRN NEB 08/10/17 14:00 09/05/17 12:42 (Norvasc) 10 mg DAILY PO 09/02/17 09:00 09/28/17 08:06 (Lopressor) 12.5 mg Q12HR PO 09/05/17 21:00 Future Hold 09/06/17 08:46 (Pill Splitter) 1 ea UNSCH PRN OTHER 09/05/17 11:00 (Bactrim Ds 800-160 Mg) 1 tab Q12HR PEG 09/09/17 21:00 09/28/17 08:06 (Tylenol) 500 mg Q6H PRN PEG 09/16/17 16:15 09/16/17 16:36 (Apresoline) 10 mg Q8HR PEG 09/24/17 14:00 09/28/17 08:06 Cefepime HCl 2000 mg/Sodium Chloride 100 ml @ 200 mls/hr Q8H IV 09/25/17 12:00 09/28/17 13:16 (Levemir Inj) 10 units BID SQ 09/27/17 21:00 09/28/17 08:06 (Cardura) 1 mg DAILY PO 09/28/17 10:00 09/28/17 10:00 A/P Problem List: (1) Acute ischemic left middle cerebral artery (MCA) stroke ICD Code: I63.512 - Cerebral infarction due to unspecified occlusion or stenosis of left middle cerebral artery Status: Acute (2) Acute respiratory failure ICD Code: J96.00 - Acute respiratory failure, unspecified whether with hypoxia or hypercapnia (3) Right hemiplegia ICD Code: G81.91 - Hemiplegia, unspecified affecting right dominant side Status: Acute (4) Sacral decubitus ulcer ICD Code: L89.159 - Pressure ulcer of sacral region, unspecified stage Status: Chronic Assessment and Plan 77 y/o female with HTN, DM admitted for DKA and hip fracture s/p large CVA. Hypernatremia Hyperkalemia - s/p Kayexalate - Continue free water flushes. - Na corrected to 138. - Potassium 5.1 --> 5.9 --> 4.2 - Will check BMP in the AM. - 09/25 Labs not checked since 09/22. Will order BMP and CBC with differential. - 09/26 K elevated at 5.3 - will give Kayexalate. check BMP in am. - 09/27 K still elevated at 5.2 - repeat Kayexalate. Check BMP in am. - 09/28 Hyperkalemia resolved. K 4.9. Continue to monitor BMP. Acute kidney injury - Likely prerenal azotemia, resolved after IV fluid administration. Continue to monitor BUN/creatinine, avoid nephrotoxins and monitor strict I's and O's. Chronic respiratory failure Continue tracheostomy Hospital Acquired pneumonia Continue oxygen Supportive care Respiratory therapy following Pseudomonas from 08/25/17 appears to be a colonization Pulmonology following 09/25 patient with thick yellow sputum production. Previous sputum culture with Pseudomonas. I will start on IV cefepime and obtaining a sputum cultures. 09/26 Continue IV Cefepime for now since wbc elevated at 13 k. 09/27 WBCs trending down. Continue IV cefepime. Sputum cultures is growing Pseudomonas SP. Chest x-ray obtained on 09/25 and reviewed by me showed increased severe bilateral pulmonary opacity with relative sparing of the apices. Patient developed a hospital acquired pna. Repeat cxr in am. 09/28 repeat chest x-ray reviewed by me shows improved radiation of the left lung , however there are still opacification of the right lung. I will order a chest ultrasound to see if the opacification the right lung is due to a pleural effusion. Sputum culture is growing multidrug resistant Pseudomonas aeruginosa. I will consult infectious disease for further recommendations. Pulmonology following recommendations. 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 Diabetes mellitus type 2 Continue Levemir 12 units Q12hrs. Insulin sliding scale Glucerna 1.5 for tube feed. 09/26 Tolerating tube feeding. Blood sugar level severely elevated in the 200's. Will increase Levemir to 12 units SQ BID, continue SSI. 09/27 Blood sugars still severely elevated, Will increase Levemir to 16 units SQ BID. Continue SSI. Continue to monitor Accu-Cheks. 09/28 but sugars improving. Continue Levemir as stated above as well as SSI with insulin NovoLog. Continue to monitor Accu-Cheks. hip fracture Surgically repaired 04/21/17 No further need for monitoring Hypertension Continue present treatments - Amlodipine 10mg Qday. Reduce Lisinopril from 40mg Q12 to Qday. Serum K+ was 5.1 on 09/11/2017. Lisinopril should be not used more than 40mg Qday for this patient. Adjust as needed 09/25 blood pressure labile and severely elevated today with a systolic blood pressure in the 170s. I will start the patient on doxazosin to the PEG tube for blood pressure control. Continue to monitor vital signs. 09/28 DT better controlled with amlodipine, lisinopril and doxazosin, however still elevated in the 150 systolic. I will increase the dose of Doxazosin 3 mg by mouth daily. 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 On IV antibiotics. ID consulted. Problem Qualifiers (1) Acute respiratory failure: Qualified Codes: J96.00 - Acute respiratory failure, unspecified whether with hypoxia or hypercapnia (2) Sacral decubitus ulcer: Qualified Codes: L89.152 - Pressure ulcer of sacral region, stage 2 Aleksandar Alford MD Sep 28, 2017 13:25
--- NOTE | 2017-09-28 19:07 | HHI.PR ---
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 No new complaint no fever Objective Vital Signs Vital Signs Date Time Temp Pulse Resp B/P (MAP) Pulse Ox O2 Delivery O2 Flow Rate FiO2 09/28/17 17:32 5.00 70 09/28/17 17:31 85 09/28/17 16:00 96.6 85 26 125/62 (83) 98 09/28/17 12:00 98.5 88 24 144/70 (94) 93 09/28/17 11:44 94 T-piece 50 09/28/17 11:44 94 T-piece 50 09/28/17 08:00 98.0 87 20 158/75 (102) 98 09/28/17 04:00 96.7 86 18 153/74 (100) 99 09/28/17 00:00 99.2 91 18 145/69 (94) 98 09/27/17 21:50 98 Trach Collar 70 09/27/17 21:50 98 Trach Collar 70 09/27/17 21:45 Trach Collar 5.00 09/27/17 20:00 96.8 88 18 148/68 (94) 99 I/O 09/27/17 09/27/17 09/27/17 09/28/17 09/28/17 09/28/17 07:00 15:00 23:00 07:00 15:00 23:00 Intake Total 0 ml 0 ml 800 ml 0 ml Output Total 300 ml Balance 0 ml 0 ml 800 ml -300 ml Intake Oral 0 ml 0 ml 0 ml 0 ml IV Total 0 ml Tube Feeding 500 ml Tube Irrigant 300 ml Output Urine Total 300 ml # Voids 3 4 4 4 3 # Bowel Movements 2 1 1 1 Result Diagram: 09/28/17 0900 09/28/17 0900 Objective Remarks GENERAL: Elderly female,NAD SKIN: Warm and dry. HEAD: Normocephalic. EYES: No scleral icterus. No injection or drainage. NECK: Supple, trachea midline. No JVD or lymphadenopathy. CARDIOVASCULAR: Regular rate and rhythm without murmurs, gallops, or rubs. RESPIRATORY: Breath sounds equal bilaterally. No accessory muscle use. GASTROINTESTINAL: Abdomen soft, non-tender, nondistended. MUSCULOSKELETAL: No cyanosis, or edema. BACK: Nontender without obvious deformity. No CVA tenderness. A/P Assessment and Plan RF,S/P Trach CVA Pneumonia Pleural effusion Pseudomonas Tracheobronchitis, ? colonisation PLAN: Cont trach collar for airway protection Aerosol nebs Supplement 02 Trach care TF Stable pulm DW RN at Chris Rizo MD Sep 28, 2017 19:07
[2017-09-29] VITALS (10 sets, daily range): BP systolic 127–137; BP diastolic 59–71; PULSE 75–82; RESP 16–22; TEMP 96.6–98.4; O2SAT 95–100
[2017-09-29] MEDS: INSULIN ASPART SUPPLEMENTAL SCALE SQ SCH ×4 (00:45→18:47)
[2017-09-29] MEDS: hydrALAZINE HCL 10 MG TAB PEG SCH ×3 (05:34→22:00)
[2017-09-29] MEDS: CEFEPIME INJ 2,000 MG in SODIUM CHLORIDE 0.9% INJ 100 ML IV SCH (05:35)
[2017-09-29] MEDS: ARTIFICIAL TEARS OPTH SOLN 15 ML BTL EACH EYE SCH ×3 (05:35→22:00)
[2017-09-29] MEDS: HEPARIN SODIUM - SQ 10,000 UNITS/ML VIAL SQ SCH ×3 (05:35→22:00)
[2017-09-29] MEDS: POLYETHYLENE GLYCOL 17 GM PKG PEG SCH (09:00)
[2017-09-29] MEDS: DOXAZOSIN MESYLATE 1 MG TAB PO SCH (09:36)
[2017-09-29] MEDS: LANSOPRAZOLE SOLUTAB 30 MG TAB NG SCH (09:36)
[2017-09-29] MEDS: CALCIUM/VITAMIN D 250 MG/125 U TAB PO SCH ×3 (09:36→18:47)
[2017-09-29] MEDS: ASPIRIN 325 MG TAB DOBHOFF SCH (09:36)
[2017-09-29] MEDS: SULFAMETHOXAZOLE-TRIMETHOPRIM DS 800-160 MG TAB PEG SCH (09:36)
[2017-09-29] MEDS: INSULIN DETEMIR 100 UNITS/ML VIAL SQ SCH (09:37)
[2017-09-29] MEDS: CHOLECALCIFEROL (VIT D3) 5000 UNIT CAP PO SCH (09:37)
[2017-09-29] MEDS: SODIUM CHLORIDE 0.9% FLUSH 5 ML FLUSH IV FLUSH SCH ×2 (09:38→21:00)
[2017-09-29] MEDS: BENEPROTEIN POWDER 1 PACK G-TUBE SCH ×3 (09:39→18:00)
[2017-09-29] MEDS: CEFTOLOZANE-TAZOBACTAM INJ 1,500 MG in SODIUM CHLORIDE 0.9% INJ 100 ML IV SCH ×2 (10:00→19:05)
--- NOTE | 2017-09-29 10:53 | HHI.IDPN ---
Subjective Subjective Remarks is a 76 y/o CF with PMHx of stroke, diabetes mellitus who was admitted with DKA and a hip fracture for which she underwent ORIF on 04/21. While in hospital recovering, patient developed altered mental status. Due to worsening mental status a stroke alert was called. Head CT showed large left MCA territory ischemic infarct with edema. Patient was transferred to the ICU by family medicine service and critical care consult was requested. At the time of evaluation in [facility], patient was opening her eyes however not following commands and had a dense right hemiplegia. Patient was also evaluated by Dr. Malave from neurology. At baseline, the patient lives with her daughter since her stroke in 2014 and does ambulate however has been having problems with memory and incontinence as well as gait difficulties. She does not feel patient would want intubation or tracheostomy or PEG tube. On 05/01/17 patient was intubated for severe hypoxemic respiratory failure from aspiration pneumonia. She also had a temp of 101 F. Blood culture and sputum culture with staph aureus sputum also growing GNR, WBC count 22,000 now indicating worsening sepsis. 05/06/[address] head with massive left MCA infarction and > 1 cm shift in right handed woman. Meanwhile patient is also being treated for C.glabrata UTI. At the time of my evaluation, patient is in [facility] on ventilator. She spontaneously opens eyes, did not follow commands for me. She underwent a CT A/ P which shows a left side pneumothorax. is placing a pigtail chest tube. She has a moser in place but no central line. ID is reconsulted for evaluation and Mment of Right side pneumonia with possible collapse lung, MDR PSAE. Overnight events reviewed with RN. No fevers On T piece 50% FiO2 Secretions biggs moderate. PEG tube and trach site ok. Does not track or follow commands. UO ok. No diarrhea Antibiotics Zerbaxa IV Lines Line sites with no e.o infection. Past Medical History reviewed Allergies: Coded Allergies: No Known Allergies (Unverified , 04/20/17) Objective . Vital Signs Date Time Temp Pulse Resp B/P (MAP) Pulse Ox O2 Delivery O2 Flow Rate FiO2 09/29/17 10:11 99 T-piece 7.00 50 09/29/17 10:11 99 T-piece 7.00 50 09/29/17 08:00 96.6 80 22 130/59 (82) 96 09/29/17 06:00 Nasal Cannula 7.00 09/29/17 04:00 96.7 80 18 137/65 (89) 100 09/29/17 00:15 100 15.00 100 09/29/17 00:15 100 T-piece 6.00 70 09/29/17 00:00 97.4 82 16 127/60 (82) 100 09/28/17 22:25 99 T-piece 6.00 50 09/28/17 22:25 100 T-piece 6.00 50 09/28/17 21:45 Trach Collar 5.00 T-Piece 09/28/17 20:00 96.6 70 18 96/51 (66) 98 09/28/17 17:32 5.00 70 09/28/17 17:31 85 09/28/17 16:00 96.6 85 26 125/62 (83) 98 09/28/17 12:00 98.5 88 24 144/70 (94) 93 09/28/17 11:44 94 T-piece 50 09/28/17 11:44 94 T-piece 50 . Laboratory Tests Test 09/28/17 09:00 White Blood Count 12.0 TH/MM3 Red Blood Count 3.26 MIL/MM3 Hemoglobin 10.3 GM/DL Hematocrit 31.5 % Mean Corpuscular Volume 96.8 FL Mean Corpuscular Hemoglobin 31.5 PG Mean Corpuscular Hemoglobin Concent 32.6 % Red Cell Distribution Width 15.3 % Platelet Count 355 TH/MM3 Mean Platelet Volume 8.5 FL Neutrophils (%) (Auto) 77.3 % Lymphocytes (%) (Auto) 11.4 % Monocytes (%) (Auto) 6.7 % Eosinophils (%) (Auto) 3.5 % Basophils (%) (Auto) 1.1 % Neutrophils # (Auto) 9.2 TH/MM3 Lymphocytes # (Auto) 1.4 TH/MM3 Monocytes # (Auto) 0.8 TH/MM3 Eosinophils # (Auto) 0.4 TH/MM3 Basophils # (Auto) 0.1 TH/MM3 CBC Comment AUTO DIFF Differential Total Cells Counted 100 Neutrophils % (Manual) 73 % Band Neutrophils % 5 % Lymphocytes % 13 % Monocytes % 6 % Neutrophils # (Manual) 9.7 TH/MM3 Myelocytes 3 % Differential Comment FINAL DIFF MANUAL Platelet Estimate NORMAL Platelet Morphology Comment NORMAL Polychromasia 2.2 % Laboratory Tests Test 09/28/17 09:00 Blood Urea Nitrogen 53 MG/DL Creatinine 0.72 MG/DL Random Glucose 194 MG/DL Calcium Level 9.7 MG/DL Sodium Level 139 MEQ/L Potassium Level 4.9 MEQ/L Chloride Level 105 MEQ/L Carbon Dioxide Level 27.7 MEQ/L Anion Gap 6 MEQ/L Estimat Glomerular Filtration Rate 79 ML/MIN Imaging Last Impressions Chest X-Ray 05/11/17 0000 Signed Impressions: Service Date/Time: Thursday, May 11, 2017 09:37 - CONCLUSION: 1. Small right pleural effusion. 2. Bilateral mid and lower lung zone predominant air space opacity could represent pulmonary edema given the appearance and distribution. Obdulio Sam MD Abdomen X-Ray 05/10/17 0000 Signed Impressions: Service Date/Time: Wednesday, May 10, 2017 22:08 - CONCLUSION: Tip of Dobbhoff catheter is in the antrum of the stomach. Sage Adler MD Gall Bladder Ultrasound 05/08/17 0000 Signed Impressions: Service Date/Time: May 08:23 - CONCLUSION: Focally unremarkable appearance of the gallbladder Obdulio Chun MD Abdomen/Pelvis CT 05/07/17 0000 Signed Impressions: Service Date/Time: Sunday, May 07, 2017 13:23 - CONCLUSION: 1. Large left pneumothorax. 2. Bilateral lower lobe consolidation and bilateral moderate size pleural effusions. 3. Significant soft tissue thickening of the right lateral chest wall and left gluteus muscle. 4. Mild ascites. The findings were called to Dr. Carney. Deangelo Zamora MD Head CT 05/06/17 0000 Signed Impressions: Service Date/Time: Saturday, May 06, 2017 04:18 - CONCLUSION: 1. Evolving large left-sided MCA territory infarct with minimally improved [id number] subfalcine shift. 2. No intercurrent hemorrhage or other acute abnormality. Alejo De La Vega MD Hip and Pelvis X-Ray 05/05/17 0000 Signed Impressions: Service Date/Time: Friday, May 05, 2017 10:59 - CONCLUSION: Left proximal femur trochanteric/subtrochanteric fracture lucency visualized. Postoperative changes. Choco Mustafa MD Chest CT 8/30/17 0000 Signed Impressions: Service Date/Time: Sunday, April 30, 2017 09:20 - CONCLUSION: 1. Bilateral pulmonary infiltrates more pronounced within the lower lobes with tiny bilateral pleural effusions. Material seen filling the lower lobe bronchi bilaterally either related to purulent material or perhaps mucus plugging. Deangelo Wren Jr., MD Carotid Artery Ultrasound 04/24/17 0000 Signed Impressions: Service Date/Time: April 09:45 - CONCLUSION: 1. No hemodynamically significant carotid artery stenosis. Arnie Middleton MD Hip X-Ray 04/21/17 0000 Signed Impressions: Service Date/Time: Friday, April 21, 2017 11:36 - CONCLUSION: Fluoroscopic images during placement of intramedullary siomara left femur. Benja Ramsey MD Physical Exam GENERAL: Well-developed patient, in no apparent distress. SKIN: No rashes, ecchymoses or lesions. Cool and dry. EYES: Pupils equal round and reactive. Extraocular motions intact. No scleral icterus. No injection or drainage. ENT: NAD NECK: Trachea midline. Supple, nontender, no meningeal signs. CARDIOVASCULAR: Regular rate and rhythm without murmurs, gallops, or rubs. RESPIRATORY: Clear to auscultation. Breath sounds equal bilaterally. GASTROINTESTINAL: Abdomen soft, distended. No tenderness. MUSCULOSKELETAL: Pedal edema. Generalized anasarca. NEUROLOGICAL:. Opens eyes, not tracking, Does not track or follow commands Psych: could not be assessed. IV line sites with no e.o infection. Assessment & Plan Remarks Sepsis MDR PSAE pneumonia Left MCA infarction Recs: Start Zerbaxa IV (ASP: MDR PSAE pneumonia) d/w : right side collapse likely due to mucus plugging. I would recommend bronchoscopy if patient daughter agrees. She has refused bronch in past per d.w . Bronch will help shorten duration of therapy. will consider mucomyst to help break down the mucus plug if daughter refuses bronch. Follow clinically. Follow cultures: MDR PSAE ID pending. 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 Jane Saleh MD Sep 29, 2017 10:53
[2017-09-29] MEDS: RESP: ACETYLCYSTEINE 10% 30 ML NEB NEB SCH ×3 (14:30→20:52)
--- NOTE | 2017-09-29 15:19 | HHI.PR ---
Subjective Remarks no major overnight events Patient on T piece with on 7 liters at 70% Fio2 afebrile patient is non verbal Objective Vitals Vital Signs Date Time Temp Pulse Resp B/P (MAP) Pulse Ox O2 Delivery O2 Flow Rate FiO2 09/29/17 11:45 95 T-piece 7.00 70 09/29/17 10:11 99 T-piece 7.00 50 09/29/17 10:11 99 T-piece 7.00 50 09/29/17 09:30 95 Trach Collar 7.00 70 09/29/17 08:00 96.6 80 22 130/59 (82) 96 09/29/17 06:00 Nasal Cannula 7.00 09/29/17 04:00 96.7 80 18 137/65 (89) 100 09/29/17 00:15 100 15.00 100 09/29/17 00:15 100 T-piece 6.00 70 09/29/17 00:00 97.4 82 16 127/60 (82) 100 09/28/17 22:25 99 T-piece 6.00 50 09/28/17 22:25 100 T-piece 6.00 50 09/28/17 21:45 Trach Collar 5.00 T-Piece 09/28/17 20:00 96.6 70 18 96/51 (66) 98 09/28/17 17:32 5.00 70 09/28/17 17:31 85 09/28/17 16:00 96.6 85 26 125/62 (83) 98 I/O 09/28/17 09/28/17 09/28/17 09/29/17 09/29/17 09/29/17 07:00 15:00 23:00 07:00 15:00 23:00 Intake Total 800 ml 100 ml 100 ml Output Total 300 ml Balance 800 ml -200 ml 100 ml Intake Oral 0 ml 0 ml 0 ml IV Total 100 ml 100 ml Tube Feeding 500 ml Tube Irrigant 300 ml Output Urine Total 300 ml # Voids 4 3 4 # Bowel Movements 1 1 1 Result Diagram: 09/28/17 0900 09/28/17 0900 Imaging Last Impressions Chest X-Ray 09/28/17 0000 Signed Impressions: Service Date/Time: Thursday, September 28, 2017 09:36 - CONCLUSION: Improving lung exam. The right hemithorax remains almost completely opacified, however, there is improved aeration of the left hemithorax. Jenniffer Bedoya MD Thoracentesis 08/05/17 1535 Signed Impressions: Service Date/Time: Saturday, August 05, 2017 16:08 - CONCLUSION: Uncomplicated CT-guided thoracentesis. Sage Adler MD Chest Ultrasound 08/02/17 0000 Signed Impressions: Service Date/Time: Tuesday, August 01, 2017 22:06 - CONCLUSION: 1. Moderate right pleural effusion, as above. Alejo De La Vega MD Hip and Pelvis X-Ray 07/09/17 0000 Signed Impressions: Service Date/Time: Sunday, July 09, 2017 14:04 - CONCLUSION: Anatomic alignment. Ricardo Middleton MD FACR Liver Ultrasound 06/19/17 0000 Signed Impressions: Service Date/Time: June 13:20 - CONCLUSION: 1. Mildly increased echotexture of the liver characteristic of hepatic steatosis. 2. Gallbladder sludge. Obdulio Sam MD Abdomen X-Ray 06/16/17 0000 Signed Impressions: Service Date/Time: Friday, June 16, 2017 04:48 - CONCLUSION: 1. Continued small bowel ileus. There has been no significant change when compared to the prior exam. Toy Duran MD Head CT 05/15/17 0000 Signed Impressions: Service Date/Time: May 19:59 - CONCLUSION: 1. 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 2. No bleed or new/acute infarct. Obdulio Simms MD Gall Bladder Ultrasound 05/08/17 0000 Signed Impressions: Service Date/Time: May 08:23 - CONCLUSION: Focally unremarkable appearance of the gallbladder Obdulio Chun MD Abdomen/Pelvis CT 05/07/17 0000 Signed Impressions: Service Date/Time: Sunday, May 07, 2017 13:23 - CONCLUSION: 1. Large left pneumothorax. 2. Bilateral lower lobe consolidation and bilateral moderate size pleural effusions. 3. Significant soft tissue thickening of the right lateral chest wall and left gluteus muscle. 4. Mild ascites. The findings were called to Dr. Carney. Deangelo Zamora MD Chest CT 04/30/17 0000 Signed Impressions: Service Date/Time: Sunday, April 30, 2017 09:20 - CONCLUSION: 1. Bilateral pulmonary infiltrates more pronounced within the lower lobes with tiny bilateral pleural effusions. Material seen filling the lower lobe bronchi bilaterally either related to purulent material or perhaps mucus plugging. Deangelo Wren Jr., MD Carotid Artery Ultrasound 04/24/17 0000 Signed Impressions: Service Date/Time: April 09:45 - CONCLUSION: 1. No hemodynamically significant carotid artery stenosis. Arnie Middleton MD Hip X-Ray 04/21/17 0000 Signed Impressions: Service Date/Time: Friday, April 21, 2017 11:36 - CONCLUSION: Fluoroscopic images during placement of intramedullary siomara left femur. Benja Ramsey MD Objective Remarks GENERAL: Unresponsive to verbal physical stimuli. SKIN: Warm and dry. HEAD: Normocephalic. EYES: No scleral icterus. No injection or drainage. NECK: Supple, trachea midline. No JVD or lymphadenopathy. T piece in place, no redness over trach insertion site. CARDIOVASCULAR: Regular rate and rhythm without murmurs, gallops, or rubs. RESPIRATORY: Scattered rhonchi audible on the right lung, left lung is clear to auscultation. GASTROINTESTINAL: Abdomen soft, non-tender, nondistended. MUSCULOSKELETAL: No cyanosis, or edema. BACK: Nontender without obvious deformity. No CVA tenderness. Procedures echo 04/24/2017 The left ventricular systolic function is low normal with an estimated ejection fraction in the range of 50- 55%. Mild concentric left ventricular hypertrophy. Normal left ventricular size. [id number] mitral valve regurgitation. Medications and IVs Current Medications Medications (Trade) Dose Ordered Sig/Zeferino Route Start Time Stop Time Status Last Admin (Narcan Inj) 0.4 mg UNSCH PRN IV 04/20/17 17:15 (Oscal-D 250-125) 250 mg TID PO 04/21/17 13:00 09/29/17 09:36 (Vitamin D3) 5,000 units DAILY PO 04/22/17 09:00 09/29/17 09:37 (NS Flush) 2 ml BID IV FLUSH 04/24/17 21:00 09/29/17 09:38 (NS Flush) 2 ml UNSCH PRN IV FLUSH 04/24/17 09:30 09/17/17 08:48 (Aspirin) 325 mg DAILY DOBHOFF 04/27/17 09:00 09/29/17 09:36 (Prevacid Odt) 30 mg DAILY NG 05/08/17 09:00 09/29/17 09:36 (Beneprotein Powder) 1 pack TID G-TUBE 05/12/17 13:00 09/29/17 09:39 (Glucagon Inj) 1 mg UNSCH PRN OTHER 05/21/17 13:15 (D50w (Syr) Inj) 50 ml UNSCH PRN IV PUSH 05/22/17 17:15 07/27/17 09:09 (Tears Naturale Opth Soln) 1 drop Q8HR EACH EYE 06/12/17 07:15 09/29/17 05:35 (Nitroglycerin 2% Oint) 2 inch Q6H PRN TOPICAL 06/21/17 08:00 06/30/17 14:37 (Miralax) 17 gm DAILY PEG 07/09/17 09:00 09/28/17 08:07 (Catapres) 0.1 mg Q6H PRN PO 07/12/17 00:30 08/23/17 16:22 (Heparin Inj) 5,000 units Q8HR SQ 07/15/17 08:00 09/29/17 05:35 (NovoLOG SUPPLEMENTAL SCALE) 1 Q6HR SQ 07/21/17 18:00 09/29/17 12:00 (Duoneb Neb) 1 ampule Q6HR NEB PRN NEB 08/10/17 14:00 09/05/17 12:42 (Norvasc) 10 mg DAILY PO 09/02/17 09:00 09/29/17 09:37 (Lopressor) 12.5 mg Q12HR PO 09/05/17 21:00 Future Hold 09/06/17 08:46 (Pill Splitter) 1 ea UNSCH PRN OTHER 09/05/17 11:00 (Bactrim Ds 800-160 Mg) 1 tab Q12HR PEG 09/09/17 21:00 09/29/17 09:36 (Tylenol) 500 mg Q6H PRN PEG 09/16/17 16:15 09/16/17 16:36 (Apresoline) 10 mg Q8HR PEG 09/24/17 14:00 09/29/17 05:34 (Levemir Inj) 10 units BID SQ 09/27/17 21:00 09/29/17 09:37 (Cardura) 1 mg DAILY PO 09/28/17 10:00 09/29/17 09:36 Ceftolozane/ Tazobactam 1500 mg/Sodium Chloride 100 ml @ 100 mls/hr Q8H IV 09/29/17 10:00 09/29/17 10:00 (Lactinex) 1 tab Q12HR PO 09/29/17 21:00 A/P Problem List: (1) Acute ischemic left middle cerebral artery (MCA) stroke ICD Code: I63.512 - Cerebral infarction due to unspecified occlusion or stenosis of left middle cerebral artery Status: Acute (2) Acute respiratory failure ICD Code: J96.00 - Acute respiratory failure, unspecified whether with hypoxia or hypercapnia (3) Right hemiplegia ICD Code: G81.91 - Hemiplegia, unspecified affecting right dominant side Status: Acute (4) Sacral decubitus ulcer ICD Code: L89.159 - Pressure ulcer of sacral region, unspecified stage Status: Chronic Assessment and Plan 77 y/o female with HTN, DM admitted for DKA and hip fracture s/p large CVA. Hypernatremia Hyperkalemia - s/p Kayexalate - Continue free water flushes. - Na corrected to 138. - Potassium 5.1 --> 5.9 --> 4.2 - Will check BMP in the AM. - 09/25 Labs not checked since 09/22. Will order BMP and CBC with differential. - 09/26 K elevated at 5.3 - will give Kayexalate. check BMP in am. - 09/27 K still elevated at 5.2 - repeat Kayexalate. Check BMP in am. - 09/29 Hypernatremia and hypokalemia resolved. continue to monitor BMP. Acute kidney injury - Likely prerenal azotemia, resolved after IV fluid administration. Continue to monitor BUN/creatinine, avoid nephrotoxins and monitor strict I's and O's. Chronic respiratory failure Continue tracheostomy Hospital Acquired pneumonia Continue oxygen Supportive care Respiratory therapy following Pseudomonas from 08/25/17 appears to be a colonization Pulmonology following The patient was noted to have on September 25 thick yellow sputum production. Sputum culture ordered which grew multidrug-resistant Pseudomonas. Initially the patient was started on IV cefepime pending sputum culture results. The patient also had elevated white blood cell of 13 K. After initiation of antibiotic therapy WBC started to trend down. A chest x-ray obtained on 09/25 showed increased severe bilateral pulmonary opacity with relative sparing of the apices. A repeat chest x-ray on 09/28 showed an improved variation of the left lung, however there was still opacification present on the right lung. ID consulted for further recommendations on HCAP with MDR pseudomonas. 09/29 Appreciate ID recommendations. discussed case with Dr Saleh. Patient started on Zerbaxa IV. Right side opacification likely collapse due to mucus plug. ID recommends bronchoscopy. Discussed the case with Dr. Rizo who states will start the patient on Mucomyst in order to help break down the mucous plug. 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 Diabetes mellitus type 2 Continue Levemir 12 units Q12hrs. Insulin sliding scale Glucerna 1.5 for tube feed. 09/26 Tolerating tube feeding. Blood sugar level severely elevated in the 200's. Will increase Levemir to 12 units SQ BID, continue SSI. 09/27 Blood sugars still severely elevated, Will increase Levemir to 16 units SQ BID. Continue SSI. Continue to monitor Accu-Cheks. 09/28 Blood sugars improving. Continue Levemir as stated above as well as SSI with insulin NovoLog. Continue to monitor Accu-Cheks. 09/29 Patient having labile blood sugars. Will switch Insulin Levemir to NPH insulin since patient is on tube feedings. Start on NPH insulin. hip fracture Surgically repaired 04/21/17 No further need for monitoring Hypertension Continue present treatments - Amlodipine 10mg Qday. Reduce Lisinopril from 40mg Q12 to Qday. Serum K+ was 5.1 on 09/11/2017. Lisinopril should be not used more than 40mg Qday for this patient. Adjust as needed 09/25 blood pressure labile and severely elevated today with a systolic blood pressure in the 170s. I will start the patient on doxazosin to the PEG tube for blood pressure control. Continue to monitor vital signs. 09/29 BP more stable today. Continue amlodipine, lisinopril and doxazosin 3 mg by mouth daily. 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 On IV antibiotics. ID consulted. Problem Qualifiers (1) Acute respiratory failure: Qualified Codes: J96.00 - Acute respiratory failure, unspecified whether with hypoxia or hypercapnia (2) Sacral decubitus ulcer: Qualified Codes: L89.152 - Pressure ulcer of sacral region, stage 2 Aleksandar Alford MD Sep 29, 2017 15:19
[2017-09-29] MEDS ORDERED: RESP: ACETYLCYSTEINE 10% 10 ML NEB NEB SCH (16:00)
--- NOTE | 2017-09-29 16:02 | HHI.PR ---
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 No new complaint no fever CXR right lung infilt/ atelactesis Objective Vital Signs Vital Signs Date Time Temp Pulse Resp B/P (MAP) Pulse Ox O2 Delivery O2 Flow Rate FiO2 09/29/17 11:45 95 T-piece 7.00 70 09/29/17 10:11 99 T-piece 7.00 50 09/29/17 10:11 99 T-piece 7.00 50 09/29/17 09:30 95 Trach Collar 7.00 70 09/29/17 08:00 96.6 80 22 130/59 (82) 96 09/29/17 06:00 Nasal Cannula 7.00 09/29/17 04:00 96.7 80 18 137/65 (89) 100 09/29/17 00:15 100 15.00 100 09/29/17 00:15 100 T-piece 6.00 70 09/29/17 00:00 97.4 82 16 127/60 (82) 100 09/28/17 22:25 99 T-piece 6.00 50 09/28/17 22:25 100 T-piece 6.00 50 09/28/17 21:45 Trach Collar 5.00 T-Piece 09/28/17 20:00 96.6 70 18 96/51 (66) 98 09/28/17 17:32 5.00 70 09/28/17 17:31 85 I/O 09/28/17 09/28/17 09/28/17 09/29/17 09/29/17 09/29/17 07:00 15:00 23:00 07:00 15:00 23:00 Intake Total 800 ml 100 ml 100 ml 100 ml Output Total 300 ml Balance 800 ml -200 ml 100 ml 100 ml Intake Oral 0 ml 0 ml 0 ml IV Total 100 ml 100 ml 100 ml Tube Feeding 500 ml Tube Irrigant 300 ml Output Urine Total 300 ml # Voids 4 3 4 # Bowel Movements 1 1 1 Result Diagram: 09/28/17 0900 09/28/17 0900 Objective Remarks GENERAL: Elderly female,NAD SKIN: Warm and dry. HEAD: Normocephalic. EYES: No scleral icterus. No injection or drainage. NECK: Supple, trachea midline. No JVD or lymphadenopathy. CARDIOVASCULAR: Regular rate and rhythm without murmurs, gallops, or rubs. RESPIRATORY: Breath sounds equal bilaterally. No accessory muscle use. GASTROINTESTINAL: Abdomen soft, non-tender, nondistended. MUSCULOSKELETAL: No cyanosis, or edema. BACK: Nontender without obvious deformity. No CVA tenderness. A/P Assessment and Plan RF,S/P Trach CVA Pneumonia Pleural effusion Pseudomonas Tracheobronchitis, ? colonisation PLAN: Cont trach collar for airway protection Aerosol nebs Supplement 02 Trach care TF Mucomyst Nebs If lungs not clearing, will need bronch DW RN at Chris Rizo MD Sep 29, 2017 16:02
[2017-09-29] MEDS: INSULIN HUMAN NPH 1,000 UNITS/10 ML VIAL SQ SCH (18:52)
[2017-09-29] MEDS: RESP: ALBUTEROL 2.5 MG/IPRATROPIUM 0.5 MG NEB (PRN) NEB (20:52)
[2017-09-29] MEDS ORDERED: METOCLOPRAMIDE HCL 10 MG/2 ML VIAL IV PUSH ONE (21:30)
[2017-09-29] MEDS: LACTOBACILLUS ACIDOPHILUS TAB PO SCH (22:00)
[2017-09-29] MEDS: SULFAMETHOXAZOLE-TRIMETHOPRIM 800-160 MG/20 ML UDC PEG SCH (22:10)
[2017-09-30] VITALS (13 sets, daily range): BP systolic 107–135; BP diastolic 52–72; PULSE 60–81; RESP 16–20; TEMP 97.5–98.8; O2SAT 93–99
[2017-09-30] MEDS: INSULIN ASPART SUPPLEMENTAL SCALE SQ SCH ×5 (00:23→23:36)
[2017-09-30] MEDS: CEFTOLOZANE-TAZOBACTAM INJ 1,500 MG in SODIUM CHLORIDE 0.9% INJ 100 ML IV SCH (01:51)
[2017-09-30] MEDS: RESP: ALBUTEROL 2.5 MG/IPRATROPIUM 0.5 MG NEB (PRN) NEB ×4 (04:09→22:08)
[2017-09-30] MEDS: RESP: ACETYLCYSTEINE 10% 30 ML NEB NEB SCH ×4 (04:09→22:08)
[2017-09-30] MEDS: HEPARIN SODIUM - SQ 10,000 UNITS/ML VIAL SQ SCH ×3 (05:29→20:15)
[2017-09-30] MEDS: ARTIFICIAL TEARS OPTH SOLN 15 ML BTL EACH EYE SCH ×3 (05:29→20:15)
[2017-09-30] MEDS: hydrALAZINE HCL 10 MG TAB PEG SCH ×3 (05:29→20:15)
[2017-09-30 08:20] LABS: HEMATOCRIT 28.6 % (35.0-46.0); HEMOGLOBIN 9.5 GM/DL (11.6-15.3); MEAN CELL VOLUME 97.7 FL (80.0-100.0); MEAN CORPUSCULAR HEMOGLOBIN 32.7 PG (27.0-34.0); MEAN CORPUSCULAR HGB CONC 33.4 % (32.0-36.0); MEAN PLATELET VOLUME 8.8 FL (7.0-11.0); PLATELET COUNT 273 TH/MM3 (150-450); RED BLOOD COUNT 2.92 MIL/MM3 (4.00-5.30); RED CELL DISTRIBUTION WIDTH 15.1 % (11.6-17.2); WHITE BLOOD COUNT 12.2 TH/MM3 (4.0-11.0)
[2017-09-30] MEDS: POLYETHYLENE GLYCOL 17 GM PKG PEG SCH (08:22)
[2017-09-30] MEDS: CALCIUM/VITAMIN D 250 MG/125 U TAB PO SCH ×3 (08:22→17:30)
[2017-09-30] MEDS: SODIUM CHLORIDE 0.9% FLUSH 5 ML FLUSH IV FLUSH SCH ×2 (08:22→20:15)
[2017-09-30] MEDS: DOXAZOSIN MESYLATE 1 MG TAB PO SCH (08:23)
[2017-09-30] MEDS: ASPIRIN 325 MG TAB DOBHOFF SCH (08:23)
[2017-09-30] MEDS: LACTOBACILLUS ACIDOPHILUS TAB PO SCH ×2 (08:23→20:15)
[2017-09-30] MEDS: LANSOPRAZOLE SOLUTAB 30 MG TAB NG SCH (08:23)
[2017-09-30] MEDS: INSULIN HUMAN NPH 1,000 UNITS/10 ML VIAL SQ SCH ×3 (08:24→17:30)
[2017-09-30] MEDS: BENEPROTEIN POWDER 1 PACK G-TUBE SCH ×3 (08:24→17:30)
[2017-09-30 08:35] LABS: ALBUMIN 2.2 GM/DL (3.4-5.0); ALT (GPT) 21 U/L (10-53); AST (GOT) 19 U/L (15-37); BICARBONATE 26.8 MEQ/L (21.0-32.0); BLOOD UREA NITROGEN 51 MG/DL (7-18); CHLORIDE 107 MEQ/L (98-107); CREATININE 0.55 MG/DL (0.50-1.00); GLOMERULAR FILTRATION RATE 108 ML/MIN (>89); GLUCOSE,RANDOM 155 MG/DL (74-106); SODIUM (NA) 139 MEQ/L (136-145)
[2017-09-30 08:38] LABS: ALKALINE PHOSPHATASE 152 U/L (45-117); TOTAL BILIRUBIN ADULT 0.1 MG/DL (0.2-1.0); TOTAL PROTEIN 6.5 GM/DL (6.4-8.2)
[2017-09-30] MEDS: CHOLECALCIFEROL (VIT D3) 5000 UNIT CAP PO SCH (09:00)
[2017-09-30] MEDS: SULFAMETHOXAZOLE-TRIMETHOPRIM 800-160 MG/20 ML UDC PEG SCH ×2 (09:00→20:15)
[2017-09-30 09:08] LABS: BANDS 4 % (0-6); BASOPHILS 1 % (0-2); LYMPHOCYTES 14 % (9-44); MONOCYTES 3 % (0-8); NEUTROPHIL # MANUAL DIFF 9.8 TH/MM3 (1.8-7.7); POLYS (SEG NEUTROPHILS) 76 % (16-70); TOXIC VACUOLATION PRESENT (NONE SEEN)
[2017-09-30 09:09] LABS: TOXIC GRANULATION 1+ (NORMAL)
--- NOTE | 2017-09-30 13:13 | HHI.IDPN ---
Subjective Subjective Remarks is a 76 y/o CF with PMHx of stroke, diabetes mellitus who was admitted with DKA and a hip fracture for which she underwent ORIF on 04/21. While in hospital recovering, patient developed altered mental status. Due to worsening mental status a stroke alert was called. Head CT showed large left MCA territory ischemic infarct with edema. Patient was transferred to the ICU by family medicine service and critical care consult was requested. At the time of evaluation in [facility], patient was opening her eyes however not following commands and had a dense right hemiplegia. Patient was also evaluated by Dr. Malave from neurology. At baseline, the patient lives with her daughter since her stroke in 2014 and does ambulate however has been having problems with memory and incontinence as well as gait difficulties. She does not feel patient would want intubation or tracheostomy or PEG tube. On 05/01/17 patient was intubated for severe hypoxemic respiratory failure from aspiration pneumonia. She also had a temp of 101 F. Blood culture and sputum culture with staph aureus sputum also growing GNR, WBC count 22,000 now indicating worsening sepsis. 05/06/[address] head with massive left MCA infarction and > 1 cm shift in right handed woman. Meanwhile patient is also being treated for C.glabrata UTI. At the time of my evaluation, patient is in [facility] on ventilator. She spontaneously opens eyes, did not follow commands for me. She underwent a CT A/ P which shows a left side pneumothorax. is placing a pigtail chest tube. She has a moser in place but no central line. ID is reconsulted for evaluation and Mment of Right side pneumonia with possible collapse lung, very MDR PSAE. Overnight events reviewed with RN. No fevers On T piece 50% FiO2 Secretions biggs moderate. PEG tube and trach site ok. Does not track or follow commands. UO ok. No diarrhea Antibiotics Zerbaxa IV Lines Line sites with no e.o infection. Past Medical History reviewed Allergies: Coded Allergies: No Known Allergies (Unverified , 04/20/17) Objective . Vital Signs Date Time Temp Pulse Resp B/P (MAP) Pulse Ox O2 Delivery O2 Flow Rate FiO2 09/30/17 12:00 98.7 77 18 131/72 (91) 99 09/30/17 09:00 97 T-piece 50 09/30/17 08:42 98 T-piece 70 09/30/17 08:00 75 09/30/17 08:00 98.8 79 16 120/62 (81) 99 09/30/17 07:00 99 Trach Collar 7.00 70 09/30/17 04:10 96 T-piece 70 09/30/17 04:00 76 20 135/69 (91) 99 09/30/17 00:00 98 Trach Collar 7.00 70 09/30/17 00:00 98.3 81 18 107/52 (70) 98 09/29/17 23:30 98 T-piece 70 09/29/17 20:53 98 T-piece 98 09/29/17 20:00 97 Trach Collar 7.00 98 09/29/17 20:00 97.8 81 18 132/63 (86) 97 09/29/17 16:00 75 09/29/17 16:00 98.4 75 20 130/71 (90) 95 . Laboratory Tests Test 09/30/17 08:08 White Blood Count 12.2 TH/MM3 Red Blood Count 2.92 MIL/MM3 Hemoglobin 9.5 GM/DL Hematocrit 28.6 % Mean Corpuscular Volume 97.7 FL Mean Corpuscular Hemoglobin 32.7 PG Mean Corpuscular Hemoglobin Concent 33.4 % Red Cell Distribution Width 15.1 % Platelet Count 273 TH/MM3 Mean Platelet Volume 8.8 FL CBC Comment AUTO DIFF Differential Total Cells Counted 100 Neutrophils % (Manual) 76 % Band Neutrophils % 4 % Lymphocytes % 14 % Monocytes % 3 % Eosinophils % 2 % Basophils % 1 % Neutrophils # (Manual) 9.8 TH/MM3 Differential Comment FINAL DIFF MANUAL Toxic Granulation 1+ Toxic Vacuolation PRESENT Platelet Estimate NORMAL Platelet Morphology Comment NORMAL Laboratory Tests Test 09/30/17 08:08 Blood Urea Nitrogen 51 MG/DL Creatinine 0.55 MG/DL Random Glucose 155 MG/DL Total Protein 6.5 GM/DL Albumin 2.2 GM/DL Calcium Level 9.0 MG/DL Alkaline Phosphatase 152 U/L Aspartate Amino Transf (AST/SGOT) 19 U/L Alanine Aminotransferase (ALT/SGPT) 21 U/L Total Bilirubin 0.1 MG/DL Sodium Level 139 MEQ/L Potassium Level 5.1 MEQ/L Chloride Level 107 MEQ/L Carbon Dioxide Level 26.8 MEQ/L Anion Gap 5 MEQ/L Estimat Glomerular Filtration Rate 108 ML/MIN Imaging Last Impressions Chest X-Ray 05/11/17 0000 Signed Impressions: Service Date/Time: Thursday, May 11, 2017 09:37 - CONCLUSION: 1. Small right pleural effusion. 2. Bilateral mid and lower lung zone predominant air space opacity could represent pulmonary edema given the appearance and distribution. Obdulio Sam MD Abdomen X-Ray 05/10/17 0000 Signed Impressions: Service Date/Time: Wednesday, May 10, 2017 22:08 - CONCLUSION: Tip of Dobbhoff catheter is in the antrum of the stomach. Sage Adler MD Gall Bladder Ultrasound 05/08/17 0000 Signed Impressions: Service Date/Time: May 08:23 - CONCLUSION: Focally unremarkable appearance of the gallbladder Obdulio Chun MD Abdomen/Pelvis CT 05/07/17 0000 Signed Impressions: Service Date/Time: Sunday, May 07, 2017 13:23 - CONCLUSION: 1. Large left pneumothorax. 2. Bilateral lower lobe consolidation and bilateral moderate size pleural effusions. 3. Significant soft tissue thickening of the right lateral chest wall and left gluteus muscle. 4. Mild ascites. The findings were called to Dr. Carney. Deangelo Zamora MD Head CT 05/06/17 0000 Signed Impressions: Service Date/Time: Saturday, May 06, 2017 04:18 - CONCLUSION: 1. Evolving large left-sided MCA territory infarct with minimally improved [id number] subfalcine shift. 2. No intercurrent hemorrhage or other acute abnormality. Alejo De La Vega MD Hip and Pelvis X-Ray 05/05/17 0000 Signed Impressions: Service Date/Time: Friday, May 05, 2017 10:59 - CONCLUSION: Left proximal femur trochanteric/subtrochanteric fracture lucency visualized. Postoperative changes. Choco Mustafa MD Chest CT 04/30/17 0000 Signed Impressions: Service Date/Time: Sunday, April 30, 2017 09:20 - CONCLUSION: 1. Bilateral pulmonary infiltrates more pronounced within the lower lobes with tiny bilateral pleural effusions. Material seen filling the lower lobe bronchi bilaterally either related to purulent material or perhaps mucus plugging. Deangelo Wren Jr., MD Carotid Artery Ultrasound 04/24/17 0000 Signed Impressions: Service Date/Time: April 09:45 - CONCLUSION: 1. No hemodynamically significant carotid artery stenosis. Arnie Middleton MD Hip X-Ray 04/21/17 0000 Signed Impressions: Service Date/Time: Friday, April 21, 2017 11:36 - CONCLUSION: Fluoroscopic images during placement of intramedullary siomara left femur. Benja Ramsey MD Physical Exam GENERAL: Well-developed patient, in no apparent distress. SKIN: No rashes, ecchymoses or lesions. Cool and dry. EYES: Pupils equal round and reactive. Extraocular motions intact. No scleral icterus. No injection or drainage. ENT: NAD NECK: Trachea midline. Supple, nontender, no meningeal signs. CARDIOVASCULAR: Regular rate and rhythm without murmurs, gallops, or rubs. RESPIRATORY: Clear to auscultation. Breath sounds equal bilaterally. GASTROINTESTINAL: Abdomen soft, distended. No tenderness. MUSCULOSKELETAL: Pedal edema. Generalized anasarca. NEUROLOGICAL:. Opens eyes, not tracking, Does not track or follow commands Psych: could not be assessed. IV line sites with no e.o infection. Assessment & Plan Remarks Very MDR PSAE pneumonia (resistant to Avycaz and Zerbaxa) E.coli and serratia in urine. Likely colonization. Possible mucus plugging. Left MCA infarction s/p neurological deficits. Recs: DC Zerbaxa IV (ASP: MDR PSAE pneumonia) d/w : right side collapse likely due to mucus plugging. I would recommend bronchoscopy if patient daughter agrees. She has refused bronch in past per d.w . I also informed him about very MDR PSAE including Zerbaxa and Avycaz resistance. Colistin IV is very toxic and used alone with bronchoscopy will lead to further resistance and nephrotoxicity. Bronch will help clear mucus plugs. Now on mucomyst to help break down the mucus plug. Follow clinically. 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 Recommend Bioquell room and strict infection control precautions. d/w Micro lab about MICs for Zerbaxa and per [employer] JEFFREY of 8 is resistant for Zerbaxa. Difficult situation, poor prognosis. d.w Palliative Care Ashly Steven about Very MDR PSAE and not much to offer that would not cause further issues like nephrotoxicity. Time spent in excess of 40 mins. Critical thinking. Jane Saleh MD Sep 30, 2017 13:13
[2017-09-30] MEDS: RESP: COLISTIN 150 MG VIAL NEB SCH (16:00)
--- NOTE | 2017-09-30 17:07 | HHI.HCPN ---
Reason for visit a. To assist with evaluation and management of symptoms including: Debility and pain. b. To assist medical decision maker(s) with: better understanding of current medical conditions; weighing benefits/burdens of medical treatment options; making medical treatment decisions. . Subjective/Interval History Mrs. Hein is a 77-year-old female with a past medical history of hypertension, diabetes mellitus and CVA who presented to the ED on 04/20/17 via EMS for evaluation of after a fall. Patient underwent Left hip reduction and intramedullary nail fixation on 04/21/17. Clinical course complicated by large left MCA infarct with diffuse edema throughout the left MCA distribution. Medical course further complicated by prolonged hospitalization, tracheostomy status post prolonged ventilation support, pneumonia, deconditioning. Palliative care following for emotional support and further clarifications of goals of care given overall poor prognosis. Patient seen in her room, currently on T collar, 7L 50% FiO2. Coughing, desaturating to mid 70's during my first visit. RT was called at the bedside. Patient was seen in her room for second time, remain on O2 via trach collar. Appears calm with oxygen saturation in the mid 90s. Patient afebrile, stable hemodynamically. Laboratory workup today revealing leukocytosis with WBC 12.2, Hgb stable and 9.5, platelet count 273. BUN/creatinine 51/0.55. Most recent chest x-ray 09/28 revealing right hemithorax with persistent opacification, however, improved aeration of the left. Case discussed in great detail with, Dr. Haider Saleh. Patient with MDR Pseudomonas pneumonia -multidrug-resistant, possible mucus plugging. Patient with limited treatment options, currently on Colistin nebulizer, as per ID "Colistin IV is very toxic and used along with bronchoscopy would lead to further assistance and nephrotoxicity". Overall very poor prognosis given the above. Telephone conversation with patient's daughter Trice Salvador. Medical update provided to include current medical management. Discussed likely trajectory of patient's illness and overall poor prognosis given multidrug-resistant pneumonia , recurrent multiple infections, no meaningful neurological recovery in 5 months poststroke, chronic comorbidities and profound physical deconditioning. Daughter tells me that pulmonology just a few days ago told her that patient was "cured from her pneumonia" and that is why patient is no longer on antibiotic treatment. Daughter reports that patient has been improving neurologically and is now following some commands and being interactive with her. Medical update once more provided to daughter, discussed that patient is not anticipated to recover neurologically. Discussed that patient will continue experiencing progressive decline given the above. Daughter verbalized aggressive goals of care, not receptive to goals of care conversation at this time. Daughter was encouraged to further discuss with attending, pulmonology and infectious disease. Case discussed with bedside RN. . Family/friend interactions See interval note. . Advance Directives Living Will: Never completed Health Care Surrogate: Never completed Durable Power of Air Drill Operator: Never completed Advance Directive Specifics Health Care Surrogate(s): No advance directives completed. As per [place] statute, healthcare proxy decision making falls to patient's only daughter Norma Salvador. . Documented care wishes: No living will completed. . Significant change in goals: Goals remain aggressive. . Objective Vital Signs Date Time Temp Pulse Resp B/P (MAP) Pulse Ox O2 Delivery O2 Flow Rate FiO2 09/30/17 16:20 98 T-piece 10.00 70 09/30/17 16:00 98.6 73 20 124/70 (88) 93 09/30/17 15:00 73 09/30/17 12:00 98.7 77 18 131/72 (91) 99 09/30/17 09:00 97 T-piece 50 09/30/17 08:42 98 T-piece 70 09/30/17 08:00 75 09/30/17 08:00 98.8 79 16 120/62 (81) 99 09/30/17 07:00 99 Trach Collar 7.00 70 09/30/17 04:10 96 T-piece 70 09/30/17 04:00 76 20 135/69 (91) 99 09/30/17 00:00 98 Trach Collar 7.00 70 09/30/17 00:00 98.3 81 18 107/52 (70) 98 09/29/17 23:30 98 T-piece 70 09/29/17 20:53 98 T-piece 98 09/29/17 20:00 97 Trach Collar 7.00 98 09/29/17 20:00 97.8 81 18 132/63 (86) 97 Intake & Output 09/30/17 09/30/17 07:00 19:00 Intake Total 950 ml Output Total 700 ml Balance 250 ml Tube Feeding 650 ml Tube Irrigant 100 ml Other 200 ml Output Urine Total 700 ml Physical Exam CONSTITUTIONAL/GENERAL: This is an elderly , ill looking female resting in bed in acute distress secondary to dyspnea, cough, desaturation. Bilateral temporal wasting noted. TUBES/LINES/DRAINS: PIV's. Tracheostomy on T piece, SCD, PEG tube. SKIN: Pale. No jaundice, rashes, or lesions. Ecchymoses on upper extremities. Skin temperature appropriate. Not diaphoretic. NECK: Trachea midline. Supple. Tracheostomy in place. T-piece. CARDIOVASCULAR: Regular rate and rhythm. Peripheral pulses symmetric. RESPIRATORY/CHEST: Symmetric, tracheostomy. course breath sounds bilaterally. GASTROINTESTINAL: Abdomen soft, round, distended. Bowel sounds present. PEG tube in place. GENITOURINARY: Without palpable bladder distension. MUSCULOSKELETAL: Extremities without clubbing, cyanosis. Muscle wasting to all 4 extremities. NEUROLOGICAL: Eyes opening spontaneously, not to command, not tracking. PSYCHIATRIC: Unable to evaluate secondary to clinical condition. . Diagnostic Tests Laboratory Laboratory Tests Test 09/28/17 09:00 09/30/17 08:08 White Blood Count 12.0 TH/MM3 (4.0-11.0) 12.2 TH/MM3 (4.0-11.0) Red Blood Count 3.26 MIL/MM3 (4.00-5.30) 2.92 MIL/MM3 (4.00-5.30) Hemoglobin 10.3 GM/DL (11.6-15.3) 9.5 GM/DL (11.6-15.3) Hematocrit 31.5 % (35.0-46.0) 28.6 % (35.0-46.0) Mean Corpuscular Volume 96.8 FL (80.0-100.0) 97.7 FL (80.0-100.0) Mean Corpuscular Hemoglobin 31.5 PG (27.0-34.0) 32.7 PG (27.0-34.0) Mean Corpuscular Hemoglobin Concent 32.6 % (32.0-36.0) 33.4 % (32.0-36.0) Red Cell Distribution Width 15.3 % (11.6-17.2) 15.1 % (11.6-17.2) Platelet Count 355 TH/MM3 (150-450) 273 TH/MM3 (150-450) Mean Platelet Volume 8.5 FL (7.0-11.0) 8.8 FL (7.0-11.0) Neutrophils (%) (Auto) 77.3 % (16.0-70.0) Lymphocytes (%) (Auto) 11.4 % (9.0-44.0) Monocytes (%) (Auto) 6.7 % (0.0-8.0) Eosinophils (%) (Auto) 3.5 % (0.0-4.0) Basophils (%) (Auto) 1.1 % (0.0-2.0) Neutrophils # (Auto) 9.2 TH/MM3 (1.8-7.7) Lymphocytes # (Auto) 1.4 TH/MM3 (1.0-4.8) Monocytes # (Auto) 0.8 TH/MM3 (0-0.9) Eosinophils # (Auto) 0.4 TH/MM3 (0-0.4) Basophils # (Auto) 0.1 TH/MM3 (0-0.2) CBC Comment AUTO DIFF AUTO DIFF Differential Total Cells Counted 100 100 Neutrophils % (Manual) 73 % (16-70) 76 % (16-70) Band Neutrophils % 5 % (0-6) 4 % (0-6) Lymphocytes % 13 % (9-44) 14 % (9-44) Monocytes % 6 % (0-8) 3 % (0-8) Neutrophils # (Manual) 9.7 TH/MM3 (1.8-7.7) 9.8 TH/MM3 (1.8-7.7) Myelocytes 3 % (0-0) Differential Comment FINAL DIFF MANUAL FINAL DIFF MANUAL Platelet Estimate NORMAL (NORMAL) NORMAL (NORMAL) Platelet Morphology Comment NORMAL (NORMAL) NORMAL (NORMAL) Polychromasia 2.2 % (0.0-1.9) Blood Urea Nitrogen 53 MG/DL (7-18) 51 MG/DL (7-18) Creatinine 0.72 MG/DL (0.50-1.00) 0.55 MG/DL (0.50-1.00) Random Glucose 194 MG/DL (74-106) 155 MG/DL (74-106) Calcium Level 9.7 MG/DL (8.5-10.1) 9.0 MG/DL (8.5-10.1) Sodium Level 139 MEQ/L (136-145) 139 MEQ/L (136-145) Potassium Level 4.9 MEQ/L (3.5-5.1) 5.1 MEQ/L (3.5-5.1) Chloride Level 105 MEQ/L (98-107) 107 MEQ/L (98-107) Carbon Dioxide Level 27.7 MEQ/L (21.0-32.0) 26.8 MEQ/L (21.0-32.0) Anion Gap 6 MEQ/L (5-15) 5 MEQ/L (5-15) Estimat Glomerular Filtration Rate 79 ML/MIN (>89) 108 ML/MIN (>89) Eosinophils % 2 % (0-4) Basophils % 1 % (0-2) Toxic Granulation 1+ (NORMAL) Toxic Vacuolation PRESENT (NONE SEEN) Total Protein 6.5 GM/DL (6.4-8.2) Albumin 2.2 GM/DL (3.4-5.0) Alkaline Phosphatase 152 U/L (45-117) Aspartate Amino Transf (AST/SGOT) 19 U/L (15-37) Alanine Aminotransferase (ALT/SGPT) 21 U/L (10-53) Total Bilirubin 0.1 MG/DL (0.2-1.0) Result Diagram: 09/30/17 0808 09/30/17 0808 Microbiology Microbiology Date/Time Source Procedure Growth Status 07/25/17 10:35 Blood Peripheral Aerobic Blood Culture - Final NO GROWTH IN 5 DAYS Complete 07/25/17 10:35 Blood Peripheral Anaerobic Blood Culture - Final NO GROWTH IN 5 DAYS Complete 08/05/17 14:25 Fluid Pleural Fluid Gram Stain - Final Complete 08/05/17 14:25 Fluid Pleural Fluid Body Fluid Culture - Final NO GROWTH IN 72 HRS.--AEROBICALLY OR ... Complete 05/29/17 17:15 Stool Stool Stool Occult Blood (JEFFREY) - Final HEMOCCULT NEGATIVE Complete 09/25/17 16:03 Sputum Endotracheal Gram Stain - Final Complete 09/25/17 16:03 Sputum Culture - Final Pseudomonas Aeruginosa Multi-Drug Resistant Complete 09/09/17 05:30 Urine Clean Catch Urine Culture - Final Serratia Marcescens Escherichia Coli Complete Procedures * 08/05/17 -right thoracentesis * 05/16/17 -PEG tube placement * 05/15/17 -tracheostomy placement * 05/08/17 -left-sided chest tube/pigtail * 04/30/17 -endotracheal intubation * 04/21/17 -Left hip reduction and intramedullary nail fixation . 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 (2) Pain 0-10 Scale: Unable to quantify Comment: Secondary to surgical intervention, bedbound status, prolonged hospitalization. (3) Debility 0-10 Scale: Unable to quantify Comment: Progressive. Pertinent Non-Medical Issues Psychosocial: Patient is originally from [facility]. Residing in [place] up until 2013 she moved to [place] to live with only daughter Trice. Patient is a , in 2006. Spiritual: No druze affiliation. Legal: No advance directives completed. Ethical issues impacting care: Patient unable to participating in medical decision-making secondary to clinical condition. Patient's daughter acting as healthcare proxy decision maker. . Important Contacts Daughter Norma Salvador . . Prognosis Mrs. Hein needs a 76-year-old female with a past medical history of hypertension, diabetes mellitus and prior CVA. Presented with left hip fracture , underwent ORIF. Clinical course complicated by large left MCA infarct with edema. Overall prognosis is poor for a meaningful neurological recovery or long -term survival given acute stroke, chronic ongoing comorbidities and advanced age. Patient appears hospice appropriate should family elect comfort-directed care. . Code Status: Full Code Plan * CODE STATUS: FULL CODE. * HEALTHCARE DECISION-MAKING: Patient not capacitated for medical decision- making given severe large stroke, not expected to regain capacity. No advance directives completed, patient is . As per [place] statute, healthcare proxy decision-making falls to patient's only daughter Trice Salvador. * GOALS OF CARE: 09/30/17: -Daughter Trice Salvador acting as healthcare proxy decision maker is electing to continue aggressive management to include FULL code. * Telephone conversation with patient's daughter Trice Salvador. Medical update provided to include current medical management. Discussed likely trajectory of patient's illness and overall poor prognosis given multidrug- resistant pneumonia, recurrent multiple infections, no meaningful neurological recovery in 5 months poststroke, chronic comorbidities and profound physical deconditioning. Daughter tells me that pulmonology just a few days ago told her that patient was "cured from her pneumonia" and that is why patient is no longer on antibiotic treatment. Daughter reports that patient has been improving neurologically and is now following some commands and being interactive with her. Medical update once more provided to daughter, discussed that patient is not anticipated to recover neurologically. Discussed that patient will continue experiencing progressive decline given the above. Daughter verbalized aggressive goals of care, not receptive to goals of care conversation at this time. Daughter was encouraged to further discuss with attending, pulmonology and infectious disease. * SYMPTOMS: * = Shortness of breath, multifactorial. Secondary to altered mental status/CVA , pneumonia, lethargy. Now trached and on T piece. Sputum culture 09/25/17 growing Pseudomonas Aeruginosa -multidrug-resistant. ID and pulmonology following. = Pain, secondary to bedbound state, tracheostomy, pressure ulcers , prolonged hospitalization. Patient does not appear to be in pain at this time. = Debility, progressive. Likely to continue to worsen given recent acute stroke and prolonged hospitalization. * Case discussed with infectious disease, Dr. Haider Saleh. * Palliative care contact information has been provided to patient's daughter. * Palliative care will continue to follow-up as needed for further clarifications of goals of care as patient's clinical condition continues to evolve. Goals of therapy are established at this time. . Time Spent Total Floor Time (mins): 41 (Total time to include review and summarization of available medical records since last visit, physical exam, goals of care conversation with patient's daughter, case discussion with infectious disease.) >50% Counseling/Coord of Care: Yes Attestation To help prompt me to consider important information that might be impacting today's encounter and assessment, information from prior notes written by myself or my colleagues may have been "brought forward" into today's note. My signature on this note, however, is an attestation that I personally performed the exam, history, and/or decision-making noted today, and, unless otherwise indicated, the interactions with patient, family, and staff as well as the review of records all occurred today. I also attest that the listed assessment and stated plan reflect my best clinical judgment today based on the combination of historical information, prior notes, and today's exam/ interactions. When time spent is documented, it refers only to time spent today by the signer, or if indicated, combined time spent today by collaborating physician/nurse practitioner. Ashly Steven Sep 30, 2017 17:07
--- NOTE | 2017-09-30 19:14 | HHI.PR ---
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 No new complaint no fever CXR right lung infilt/ atelactesis Culture Gerard resistant Pseudomonas Objective Vital Signs Vital Signs Date Time Temp Pulse Resp B/P (MAP) Pulse Ox O2 Delivery O2 Flow Rate FiO2 09/30/17 16:20 98 T-piece 10.00 70 09/30/17 16:00 98.6 73 20 124/70 (88) 93 09/30/17 15:00 73 09/30/17 12:00 98.7 77 18 131/72 (91) 99 09/30/17 09:00 97 T-piece 50 09/30/17 08:42 98 T-piece 70 09/30/17 08:00 75 09/30/17 08:00 98.8 79 16 120/62 (81) 99 09/30/17 07:00 99 Trach Collar 7.00 70 09/30/17 04:10 96 T-piece 70 09/30/17 04:00 76 20 135/69 (91) 99 09/30/17 00:00 98 Trach Collar 7.00 70 09/30/17 00:00 98.3 81 18 107/52 (70) 98 09/29/17 23:30 98 T-piece 70 09/29/17 20:53 98 T-piece 98 09/29/17 20:00 97 Trach Collar 7.00 98 09/29/17 20:00 97.8 81 18 132/63 (86) 97 I/O 09/29/17 09/29/17 09/29/17 09/30/17 09/30/17 09/30/17 07:00 15:00 23:00 07:00 15:00 23:00 Intake Total 100 ml 525 ml 525 ml Output Total 300 ml 400 ml 700 ml Balance 100 ml 225 ml 125 ml -700 ml Intake Oral 0 ml IV Total 100 ml 100 ml Tube Feeding 425 ml 225 ml Tube Irrigant 100 ml Other 200 ml Output Urine Total 300 ml 400 ml 700 ml # Voids 4 1 # Bowel Movements 1 Result Diagram: 09/30/17 0808 09/30/17 0808 Objective Remarks GENERAL: Elderly female,NAD SKIN: Warm and dry. HEAD: Normocephalic. EYES: No scleral icterus. No injection or drainage. NECK: Supple, trachea midline. No JVD or lymphadenopathy. CARDIOVASCULAR: Regular rate and rhythm without murmurs, gallops, or rubs. RESPIRATORY: Breath sounds equal bilaterally. No accessory muscle use. GASTROINTESTINAL: Abdomen soft, non-tender, nondistended. MUSCULOSKELETAL: No cyanosis, or edema. BACK: Nontender without obvious deformity. No CVA tenderness. A/P Assessment and Plan RF,S/P Trach CVA Pneumonia Pleural effusion Pseudomonas Tracheobronchitis, ? colonisation PLAN: Cont trach collar for airway protection Aerosol nebs Supplement 02 Trach care TF Mucomyst Nebs If lungs not clearing, will need bronch Abx per ID DW RN at Chris Rizo MD Sep 30, 2017 19:14
--- NOTE | 2017-09-30 19:42 | HHI.PR ---
Subjective Remarks Patient is more awake nonverbal as per RN patient had some episode of vomiting last night and tube feeds had to held. Patient on T piece at 10 liters w fio2 70%. Objective Vitals Vital Signs Date Time Temp Pulse Resp B/P (MAP) Pulse Ox O2 Delivery O2 Flow Rate FiO2 09/30/17 16:20 98 T-piece 10.00 70 09/30/17 16:00 98.6 73 20 124/70 (88) 93 09/30/17 15:00 73 09/30/17 12:00 98.7 77 18 131/72 (91) 99 09/30/17 09:00 97 T-piece 50 09/30/17 08:42 98 T-piece 70 09/30/17 08:00 75 09/30/17 08:00 98.8 79 16 120/62 (81) 99 09/30/17 07:00 99 Trach Collar 7.00 70 09/30/17 04:10 96 T-piece 70 09/30/17 04:00 76 20 135/69 (91) 99 09/30/17 00:00 98 Trach Collar 7.00 70 09/30/17 00:00 98.3 81 18 107/52 (70) 98 09/29/17 23:30 98 T-piece 70 09/29/17 20:53 98 T-piece 98 09/29/17 20:00 97 Trach Collar 7.00 98 09/29/17 20:00 97.8 81 18 132/63 (86) 97 I/O 09/29/17 09/29/17 09/29/17 09/30/17 09/30/17 09/30/17 07:00 15:00 23:00 07:00 15:00 23:00 Intake Total 100 ml 525 ml 525 ml Output Total 300 ml 400 ml 700 ml Balance 100 ml 225 ml 125 ml -700 ml Intake Oral 0 ml IV Total 100 ml 100 ml Tube Feeding 425 ml 225 ml Tube Irrigant 100 ml Other 200 ml Output Urine Total 300 ml 400 ml 700 ml # Voids 4 1 # Bowel Movements 1 Result Diagram: 09/30/17 0808 09/30/17 0808 Imaging Last Impressions Chest X-Ray 09/28/17 0000 Signed Impressions: Service Date/Time: Thursday, September 28, 2017 09:36 - CONCLUSION: Improving lung exam. The right hemithorax remains almost completely opacified, however, there is improved aeration of the left hemithorax. Jenniffer Bedoya MD Thoracentesis 08/05/17 1535 Signed Impressions: Service Date/Time: Saturday, August 05, 2017 16:08 - CONCLUSION: Uncomplicated CT-guided thoracentesis. Sage Adler MD Chest Ultrasound 08/02/17 0000 Signed Impressions: Service Date/Time: Tuesday, August 01, 2017 22:06 - CONCLUSION: 1. Moderate right pleural effusion, as above. Alejo De La Vega MD Hip and Pelvis X-Ray 07/09/17 0000 Signed Impressions: Service Date/Time: Sunday, July 09, 2017 14:04 - CONCLUSION: Anatomic alignment. Ricardo Middleton MD FACR Liver Ultrasound 06/19/17 0000 Signed Impressions: Service Date/Time: June 13:20 - CONCLUSION: 1. Mildly increased echotexture of the liver characteristic of hepatic steatosis. 2. Gallbladder sludge. Obdulio Sam MD Abdomen X-Ray 06/16/17 0000 Signed Impressions: Service Date/Time: Friday, June 16, 2017 04:48 - CONCLUSION: 1. Continued small bowel ileus. There has been no significant change when compared to the prior exam. Toy Duran MD Head CT 05/15/17 0000 Signed Impressions: Service Date/Time: May 19:59 - CONCLUSION: 1. 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 2. No bleed or new/acute infarct. Obdulio Simms MD Gall Bladder Ultrasound 05/08/17 0000 Signed Impressions: Service Date/Time: May 08:23 - CONCLUSION: Focally unremarkable appearance of the gallbladder Obdulio Chun MD Abdomen/Pelvis CT 05/07/17 0000 Signed Impressions: Service Date/Time: Sunday, May 07, 2017 13:23 - CONCLUSION: 1. Large left pneumothorax. 2. Bilateral lower lobe consolidation and bilateral moderate size pleural effusions. 3. Significant soft tissue thickening of the right lateral chest wall and left gluteus muscle. 4. Mild ascites. The findings were called to Dr. Biga. Deangelo Zamora MD Chest CT 04/30/17 0000 Signed Impressions: Service Date/Time: Sunday, April 30, 2017 09:20 - CONCLUSION: 1. Bilateral pulmonary infiltrates more pronounced within the lower lobes with tiny bilateral pleural effusions. Material seen filling the lower lobe bronchi bilaterally either related to purulent material or perhaps mucus plugging. Deangelo Wren Jr., MD Carotid Artery Ultrasound 04/24/17 0000 Signed Impressions: Service Date/Time: April 09:45 - CONCLUSION: 1. No hemodynamically significant carotid artery stenosis. Arnie Middleton MD Hip X-Ray 04/21/17 0000 Signed Impressions: Service Date/Time: Friday, April 21, 2017 11:36 - CONCLUSION: Fluoroscopic images during placement of intramedullary siomara left femur. Benja Ramsey MD Objective Remarks GENERAL: Unresponsive to verbal physical stimuli. SKIN: Warm and dry. HEAD: Normocephalic. EYES: No scleral icterus. No injection or drainage. NECK: Supple, trachea midline. No JVD or lymphadenopathy. T piece in place, no redness over trach insertion site. CARDIOVASCULAR: Regular rate and rhythm without murmurs, gallops, or rubs. RESPIRATORY: Scattered rhonchi audible on the right lung, left lung is clear to auscultation. GASTROINTESTINAL: Abdomen soft, non-tender, nondistended. MUSCULOSKELETAL: No cyanosis, or edema. BACK: Nontender without obvious deformity. No CVA tenderness. Neuro: Awake and alert, does not follow commands. Nonverbal. Procedures echo 04/24/2017 The left ventricular systolic function is low normal with an estimated ejection fraction in the range of 50- 55%. Mild concentric left ventricular hypertrophy. Normal left ventricular size. [id number] mitral valve regurgitation. Medications and IVs Current Medications Medications (Trade) Dose Ordered Sig/Zeferino Route Start Time Stop Time Status Last Admin (Narcan Inj) 0.4 mg UNSCH PRN IV 04/20/17 17:15 (Oscal-D 250-125) 250 mg TID PO 04/21/17 13:00 09/30/17 17:30 (Vitamin D3) 5,000 units DAILY PO 04/22/17 09:00 09/29/17 09:37 (NS Flush) 2 ml BID IV FLUSH 8/24/17 21:00 09/30/17 20:15 (NS Flush) 2 ml UNSCH PRN IV FLUSH 04/24/17 09:30 09/17/17 08:48 (Aspirin) 325 mg DAILY DOBHOFF 04/27/17 09:00 09/30/17 08:23 (Prevacid Odt) 30 mg DAILY NG 05/08/17 09:00 09/30/17 08:23 (Beneprotein Powder) 1 pack TID G-TUBE 05/12/17 13:00 09/30/17 17:30 (Glucagon Inj) 1 mg UNSCH PRN OTHER 05/21/17 13:15 (D50w (Syr) Inj) 50 ml UNSCH PRN IV PUSH 05/22/17 17:15 07/27/17 09:09 (Tears Naturale Opth Soln) 1 drop Q8HR EACH EYE 06/12/17 07:15 10/01/17 05:11 (Nitroglycerin 2% Oint) 2 inch Q6H PRN TOPICAL 06/21/17 08:00 06/30/17 14:37 (Miralax) 17 gm DAILY PEG 07/09/17 09:00 09/30/17 08:22 (Catapres) 0.1 mg Q6H PRN PO 07/12/17 00:30 08/23/17 16:22 (Heparin Inj) 5,000 units Q8HR SQ 07/15/17 08:00 10/01/17 05:11 (NovoLOG SUPPLEMENTAL SCALE) 1 Q6HR SQ 07/21/17 18:00 09/30/17 11:38 (Duoneb Neb) 1 ampule Q6HR NEB PRN NEB 08/10/17 14:00 10/01/17 03:41 (Norvasc) 10 mg DAILY PO 09/02/17 09:00 09/30/17 08:23 (Lopressor) 12.5 mg Q12HR PO 09/05/17 21:00 Future Hold 09/06/17 08:46 (Pill Splitter) 1 ea UNSCH PRN OTHER 09/05/17 11:00 (Tylenol) 500 mg Q6H PRN PEG 09/16/17 16:15 09/16/17 16:36 (Apresoline) 10 mg Q8HR PEG 09/24/17 14:00 10/01/17 05:11 (Cardura) 1 mg DAILY PO 09/28/17 10:00 09/30/17 08:23 (Lactinex) 1 tab Q12HR PO 09/29/17 21:00 09/30/17 20:15 (NovoLIN N INJ) 7 units TID SQ 09/29/17 18:00 09/30/17 17:30 (Mucomyst 10% Neb) 2 ml Q6HR NEB NEB 09/29/17 14:30 10/01/17 03:41 (Bactrim 800-160 Mg/20 ml Liq) 20 ml BID PEG 09/29/17 22:02 09/30/17 20:15 (Coly-Mycin M Neb) 75 mg Q8HR NEB NEB 09/30/17 16:00 10/01/17 08:24 A/P Problem List: (1) Acute ischemic left middle cerebral artery (MCA) stroke ICD Code: I63.512 - Cerebral infarction due to unspecified occlusion or stenosis of left middle cerebral artery Status: Acute (2) Acute respiratory failure ICD Code: J96.00 - Acute respiratory failure, unspecified whether with hypoxia or hypercapnia (3) Right hemiplegia ICD Code: G81.91 - Hemiplegia, unspecified affecting right dominant side Status: Acute (4) Sacral decubitus ulcer ICD Code: L89.159 - Pressure ulcer of sacral region, unspecified stage Status: Chronic (5) HCAP (healthcare-associated pneumonia) ICD Code: J18.9 - Pneumonia, unspecified organism Status: Resolved (6) 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 Hypernatremia Hyperkalemia - s/p Kayexalate - Continue free water flushes. - 09/29 Hypernatremia and hypokalemia resolved. continue to monitor BMP. Acute kidney injury - Likely prerenal azotemia, resolved after IV fluid administration. Continue to monitor BUN/creatinine, avoid nephrotoxins and monitor strict I's and O's. Chronic respiratory failure Continue tracheostomy Hospital Acquired pneumonia Continue oxygen Supportive care Respiratory therapy following Pseudomonas from 08/25/17 appears to be a colonization Pulmonology following The patient was noted to have on September 25 thick yellow sputum production. Sputum culture ordered which grew multidrug-resistant Pseudomonas. Initially the patient was started on IV cefepime pending sputum culture results. The patient also had elevated white blood cell of 13 K. After initiation of antibiotic therapy WBC started to trend down. A chest x-ray obtained on 09/25 showed increased severe bilateral pulmonary opacity with relative sparing of the apices. A repeat chest x-ray on 09/28 showed an improved variation of the left lung, however there was still opacification present on the right lung. ID consulted for further recommendations on HCAP with MDR pseudomonas. 09/29 Appreciate ID recommendations. discussed case with Dr Saleh. Patient started on Zerbaxa IV. Right side opacification likely collapse due to mucus plug. ID recommends bronchoscopy. Discussed the case with Dr. Rizo who states will start the patient on Mucomyst in order to help break down the mucous plug. 09/30 Discussed case with ID. 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 The patient was placed on colistin nebs treatments, patient also on Bactrim via PEG. Ceftolozne- tazobactam discontinued. Continue antibiotics management as per ID. ID recommended for further measures as the patient likely sustained a decline given that pneumonia is very hard to treat. 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 Diabetes mellitus type 2 Continue Levemir 12 units Q12hrs. Insulin sliding scale Glucerna 1.5 for tube feed. 09/26 Tolerating tube feeding. Blood sugar level severely elevated in the 200's. Will increase Levemir to 12 units SQ BID, continue SSI. 09/27 Blood sugars still severely elevated, Will increase Levemir to 16 units SQ BID. Continue SSI. Continue to monitor Accu-Cheks. 09/28 Blood sugars improving. Continue Levemir as stated above as well as SSI with insulin NovoLog. Continue to monitor Accu-Cheks. 09/29 Patient having labile blood sugars. Will switch Insulin Levemir to NPH insulin since patient is on tube feedings. Start on NPH insulin. 09/30 blood sugars much stable, continue insulin NPH. hip fracture Surgically repaired 04/21/17 No further need for monitoring Hypertension Continue present treatments - Amlodipine 10mg Qday. Reduce Lisinopril from 40mg Q12 to Qday. Serum K+ was 5.1 on 09/11/2017. Lisinopril should be not used more than 40mg Qday for this patient. Adjust as needed 09/25 blood pressure labile and severely elevated today with a systolic blood pressure in the 170s. I will start the patient on doxazosin to the PEG tube for blood pressure control. Continue to monitor vital signs. 09/30 blood pressure stable. Continue amlodipine, lisinopril and doxazosin 3 mg by mouth daily. 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 On IV antibiotics. Very poor prognosis given multidrug-resistant Pseudomonas hospital-acquired pneumonia. Appreciate palliative care efforts. Problem Qualifiers (1) Acute respiratory failure: Qualified Codes: J96.00 - Acute respiratory failure, unspecified whether with hypoxia or hypercapnia (2) Sacral decubitus ulcer: Qualified Codes: L89.152 - Pressure ulcer of sacral region, stage 2 (3) Chronic respiratory failure: Qualified Codes: J96.11 - Chronic respiratory failure with hypoxia Aleksandar Alford MD Sep 30, 2017 19:42
[2017-10-01] VITALS (10 sets, daily range): BP systolic 116–138; BP diastolic 70–90; PULSE 48–74; RESP 18–20; TEMP 98–98.6; O2SAT 92–98
[2017-10-01] MEDS: RESP: COLISTIN 150 MG VIAL NEB SCH ×4 (00:01→21:07)
[2017-10-01] MEDS: RESP: ACETYLCYSTEINE 10% 30 ML NEB NEB SCH ×4 (03:41→21:07)
[2017-10-01] MEDS: RESP: ALBUTEROL 2.5 MG/IPRATROPIUM 0.5 MG NEB (PRN) NEB ×4 (03:41→21:06)
[2017-10-01] MEDS: INSULIN ASPART SUPPLEMENTAL SCALE SQ SCH ×4 (05:08→23:32)
[2017-10-01] MEDS: ARTIFICIAL TEARS OPTH SOLN 15 ML BTL EACH EYE SCH ×3 (05:11→20:35)
[2017-10-01] MEDS: hydrALAZINE HCL 10 MG TAB PEG SCH ×3 (05:11→20:34)
[2017-10-01] MEDS: HEPARIN SODIUM - SQ 10,000 UNITS/ML VIAL SQ SCH ×3 (05:11→20:35)
[2017-10-01] MEDS: BENEPROTEIN POWDER 1 PACK G-TUBE SCH ×3 (09:00→18:00)
[2017-10-01] MEDS: POLYETHYLENE GLYCOL 17 GM PKG PEG SCH (09:00)
[2017-10-01] MEDS: CALCIUM/VITAMIN D 250 MG/125 U TAB PO SCH ×3 (09:00→18:16)
[2017-10-01] MEDS: SODIUM CHLORIDE 0.9% FLUSH 5 ML FLUSH IV FLUSH SCH ×2 (09:00→20:35)
[2017-10-01] MEDS: LACTOBACILLUS ACIDOPHILUS TAB PO SCH ×2 (10:37→20:35)
[2017-10-01] MEDS: CHOLECALCIFEROL (VIT D3) 5000 UNIT CAP PO SCH (10:37)
[2017-10-01] MEDS: ASPIRIN 325 MG TAB DOBHOFF SCH (10:37)
[2017-10-01] MEDS: LANSOPRAZOLE SOLUTAB 30 MG TAB NG SCH (10:37)
[2017-10-01] MEDS: SULFAMETHOXAZOLE-TRIMETHOPRIM 800-160 MG/20 ML UDC PEG SCH ×2 (10:39→20:35)
[2017-10-01] MEDS: DOXAZOSIN MESYLATE 1 MG TAB PO SCH (10:39)
[2017-10-01] MEDS: INSULIN HUMAN NPH 1,000 UNITS/10 ML VIAL SQ SCH ×3 (10:39→18:16)
--- NOTE | 2017-10-01 15:26 | HHI.PR ---
Subjective Remarks no major overnight events afebrile on T piece Objective Vitals Vital Signs Date Time Temp Pulse Resp B/P (MAP) Pulse Ox O2 Delivery O2 Flow Rate FiO2 10/01/17 12:10 93 Trach Collar 7.00 70 T-Piece Humidified 10/01/17 12:00 77 Trach Collar 7.00 70 T-Piece Humidified 10/01/17 08:24 94 T-piece 7.00 70 10/01/17 08:00 98.4 50 18 138/70 (92) 95 10/01/17 07:00 96 Trach Collar 7.00 70 T-Piece Humidified 10/01/17 07:00 52 10/01/17 05:50 92 T-piece 7.00 98 09/30/17 23:00 60 09/30/17 22:08 95 T-piece 7.00 70 09/30/17 20:00 97.5 62 20 127/63 (84) 96 09/30/17 20:00 96 Trach Collar 7.00 70 09/30/17 16:20 98 T-piece 10.00 70 09/30/17 16:00 98.6 73 20 124/70 (88) 93 I/O 09/30/17 09/30/17 09/30/17 10/01/17 10/01/17 10/01/17 07:00 15:00 23:00 07:00 15:00 23:00 Intake Total 525 ml 800 ml Output Total 400 ml 700 ml 400 ml Balance 125 ml -700 ml 400 ml Tube Feeding 225 ml 450 ml Tube Irrigant 100 ml 200 ml Other 200 ml 150 ml Output Urine Total 400 ml 700 ml 400 ml # Voids 3 # Bowel Movements 5 Result Diagram: 09/30/17 0808 09/30/17 0808 Imaging Last Impressions Chest X-Ray 09/28/17 0000 Signed Impressions: Service Date/Time: Thursday, September 28, 2017 09:36 - CONCLUSION: Improving lung exam. The right hemithorax remains almost completely opacified, however, there is improved aeration of the left hemithorax. Jenniffer Bedoya MD Thoracentesis 08/05/17 1535 Signed Impressions: Service Date/Time: Saturday, August 05, 2017 16:08 - CONCLUSION: Uncomplicated CT-guided thoracentesis. Sage Adler MD Chest Ultrasound 08/02/17 0000 Signed Impressions: Service Date/Time: Tuesday, August 01, 2017 22:06 - CONCLUSION: 1. Moderate right pleural effusion, as above. Alejo De La Vega MD Hip and Pelvis X-Ray 07/09/17 0000 Signed Impressions: Service Date/Time: Sunday, July 09, 2017 14:04 - CONCLUSION: Anatomic alignment. Ricardo Middleton MD FACR Liver Ultrasound 06/19/17 0000 Signed Impressions: Service Date/Time: June 13:20 - CONCLUSION: 1. Mildly increased echotexture of the liver characteristic of hepatic steatosis. 2. Gallbladder sludge. Obdulio Sam MD Abdomen X-Ray 06/16/17 0000 Signed Impressions: Service Date/Time: Friday, June 16, 2017 04:48 - CONCLUSION: 1. Continued small bowel ileus. There has been no significant change when compared to the prior exam. Toy Duran MD Head CT 05/15/17 0000 Signed Impressions: Service Date/Time: May 19:59 - CONCLUSION: 1. 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 2. No bleed or new/acute infarct. Obdulio Simms MD Gall Bladder Ultrasound 05/08/17 0000 Signed Impressions: Service Date/Time: May 08:23 - CONCLUSION: Focally unremarkable appearance of the gallbladder Obdulio Chun MD Abdomen/Pelvis CT 05/07/17 0000 Signed Impressions: Service Date/Time: Sunday, May 07, 2017 13:23 - CONCLUSION: 1. Large left pneumothorax. 2. Bilateral lower lobe consolidation and bilateral moderate size pleural effusions. 3. Significant soft tissue thickening of the right lateral chest wall and left gluteus muscle. 4. Mild ascites. The findings were called to Dr. Canrey. Deangelo Zamora MD Chest CT 04/30/17 0000 Signed Impressions: Service Date/Time: Sunday, April 30, 2017 09:20 - CONCLUSION: 1. Bilateral pulmonary infiltrates more pronounced within the lower lobes with tiny bilateral pleural effusions. Material seen filling the lower lobe bronchi bilaterally either related to purulent material or perhaps mucus plugging. Deangelo Wren Jr., MD Carotid Artery Ultrasound 04/24/17 0000 Signed Impressions: Service Date/Time: April 09:45 - CONCLUSION: 1. No hemodynamically significant carotid artery stenosis. Arnie Middleton MD Hip X-Ray 04/21/17 0000 Signed Impressions: Service Date/Time: Friday, April 21, 2017 11:36 - CONCLUSION: Fluoroscopic images during placement of intramedullary siomara left femur. Benja Ramsye MD Objective Remarks GENERAL: Unresponsive to verbal physical stimuli. SKIN: Warm and dry. HEAD: Normocephalic. EYES: No scleral icterus. No injection or drainage. NECK: Supple, trachea midline. No JVD or lymphadenopathy. T piece in place, no redness over trach insertion site. CARDIOVASCULAR: Regular rate and rhythm without murmurs, gallops, or rubs. RESPIRATORY: Scattered rhonchi audible on the right lung, left lung is clear to auscultation. GASTROINTESTINAL: Abdomen soft, non-tender, nondistended. MUSCULOSKELETAL: No cyanosis, or edema. BACK: Nontender without obvious deformity. No CVA tenderness. Neuro: Awake and alert, does not follow commands. Nonverbal. Procedures echo 04/24/2017 The left ventricular systolic function is low normal with an estimated ejection fraction in the range of 50- 55%. Mild concentric left ventricular hypertrophy. Normal left ventricular size. [id number] mitral valve regurgitation. Medications and IVs Current Medications Medications (Trade) Dose Ordered Sig/Zeferino Route Start Time Stop Time Status Last Admin (Narcan Inj) 0.4 mg UNSCH PRN IV 04/20/17 17:15 (Oscal-D 250-125) 250 mg TID PO 04/21/17 13:00 10/01/17 18:16 (Vitamin D3) 5,000 units DAILY PO 04/22/17 09:00 10/01/17 10:37 (NS Flush) 2 ml BID IV FLUSH 04/24/17 21:00 10/01/17 09:00 (NS Flush) 2 ml UNSCH PRN IV FLUSH 04/24/17 09:30 09/17/17 08:48 (Aspirin) 325 mg DAILY DOBHOFF 04/27/17 09:00 10/01/17 10:37 (Prevacid Odt) 30 mg DAILY NG 05/08/17 09:00 10/01/17 10:37 (Beneprotein Powder) 1 pack TID G-TUBE 05/12/17 13:00 09/30/17 17:30 (Glucagon Inj) 1 mg UNSCH PRN OTHER 05/21/17 13:15 (D50w (Syr) Inj) 50 ml UNSCH PRN IV PUSH 05/22/17 17:15 07/27/17 09:09 (Tears Naturale Opth Soln) 1 drop Q8HR EACH EYE 06/12/17 07:15 10/01/17 14:00 (Nitroglycerin 2% Oint) 2 inch Q6H PRN TOPICAL 06/21/17 08:00 06/30/17 14:37 (Miralax) 17 gm DAILY PEG 07/09/17 09:00 09/30/17 08:22 (Catapres) 0.1 mg Q6H PRN PO 07/12/17 00:30 08/23/17 16:22 (Heparin Inj) 5,000 units Q8HR SQ 07/15/17 08:00 10/01/17 14:00 (NovoLOG SUPPLEMENTAL SCALE) 1 Q6HR SQ 07/21/17 18:00 10/01/17 18:00 (Duoneb Neb) 1 ampule Q6HR NEB PRN NEB 08/10/17 14:00 10/01/17 16:06 (Norvasc) 10 mg DAILY PO 09/02/17 09:00 10/01/17 10:37 (Lopressor) 12.5 mg Q12HR PO 09/05/17 21:00 Future Hold 09/06/17 08:46 (Pill Splitter) 1 ea UNSCH PRN OTHER 09/05/17 11:00 (Tylenol) 500 mg Q6H PRN PEG 09/16/17 16:15 09/16/17 16:36 (Apresoline) 10 mg Q8HR PEG 09/24/17 14:00 10/01/17 05:11 (Cardura) 1 mg DAILY PO 09/28/17 10:00 10/01/17 10:39 (Lactinex) 1 tab Q12HR PO 09/29/17 21:00 10/01/17 10:37 (NovoLIN N INJ) 7 units TID SQ 09/29/17 18:00 10/01/17 18:16 (Mucomyst 10% Neb) 2 ml Q6HR NEB NEB 09/29/17 14:30 10/01/17 16:06 (Bactrim 800-160 Mg/20 ml Liq) 20 ml BID PEG 09/29/17 22:02 10/01/17 10:39 (Coly-Mycin M Neb) 75 mg Q8HR NEB NEB 09/30/17 16:00 10/01/17 16:33 A/P Problem List: (1) Acute ischemic left middle cerebral artery (MCA) stroke ICD Code: I63.512 - Cerebral infarction due to unspecified occlusion or stenosis of left middle cerebral artery Status: Acute (2) Acute respiratory failure ICD Code: J96.00 - Acute respiratory failure, unspecified whether with hypoxia or hypercapnia (3) Right hemiplegia ICD Code: G81.91 - Hemiplegia, unspecified affecting right dominant side Status: Acute (4) Sacral decubitus ulcer ICD Code: L89.159 - Pressure ulcer of sacral region, unspecified stage Status: Chronic (5) HCAP (healthcare-associated pneumonia) ICD Code: J18.9 - Pneumonia, unspecified organism Status: Resolved (6) 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 Hypernatremia Hyperkalemia - s/p Kayexalate - Continue free water flushes. - Hypernatremia and hypokalemia resolved. continue to monitor BMP. Acute kidney injury - Likely prerenal azotemia, resolved after IV fluid administration. Continue to monitor BUN/creatinine, avoid nephrotoxins and monitor strict I's and O's. Chronic respiratory failure Continue tracheostomy Hospital Acquired pneumonia Continue oxygen Supportive care Respiratory therapy following Pseudomonas from 08/25/17 appears to be a colonization Pulmonology following The patient was noted to have on September 25 thick yellow sputum production. Sputum culture ordered which grew multidrug-resistant Pseudomonas. Initially the patient was started on IV cefepime pending sputum culture results. The patient also had elevated white blood cell of 13 K. After initiation of antibiotic therapy WBC started to trend down. A chest x-ray obtained on 09/25 showed increased severe bilateral pulmonary opacity with relative sparing of the apices. A repeat chest x-ray on 09/28 showed an improved variation of the left lung, however there was still opacification present on the right lung. ID consulted for further recommendations on HCAP with MDR pseudomonas. 09/29 Appreciate ID recommendations. discussed case with Dr Saleh. Patient started on Zerbaxa IV. Right side opacification likely collapse due to mucus plug. ID recommends bronchoscopy. Discussed the case with Dr. Rizo who states will start the patient on Mucomyst in order to help break down the mucous plug. Discussed case with ID. 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 The patient was placed on colistin nebs treatments, patient also on Bactrim via PEG. Ceftolozne- tazobactam discontinued. Continue antibiotics management as per ID. ID recommended for further measures as the patient likely sustained a decline given that pneumonia is very hard to treat. 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 Diabetes mellitus type 2 Continue Levemir 12 units Q12hrs. Insulin sliding scale Glucerna 1.5 for tube feed. 09/26 Tolerating tube feeding. Blood sugar level severely elevated in the 200's. Will increase Levemir to 12 units SQ BID, continue SSI. 09/27 Blood sugars still severely elevated, Will increase Levemir to 16 units SQ BID. Continue SSI. Continue to monitor Accu-Cheks. 09/28 Blood sugars improving. Continue Levemir as stated above as well as SSI with insulin NovoLog. Continue to monitor Accu-Cheks. 09/29 Patient having labile blood sugars. Will switch Insulin Levemir to NPH insulin since patient is on tube feedings. Start on NPH insulin. 09/30 blood sugars much stable, continue insulin NPH. 10/01 Blood sugars severely elevated. Will increase dose of Insulin NPH to 10 units SQ TID. hip fracture Surgically repaired 04/21/17 No further need for monitoring Hypertension Continue present treatments - Amlodipine 10mg Qday. Reduce Lisinopril from 40mg Q12 to Qday. Serum K+ was 5.1 on 09/11/2017. Lisinopril should be not used more than 40mg Qday for this patient. Adjust as needed 09/25 blood pressure labile and severely elevated today with a systolic blood pressure in the 170s. I will start the patient on doxazosin to the PEG tube for blood pressure control. Continue to monitor vital signs. 10/01 blood pressure stable. Continue amlodipine, lisinopril and doxazosin 3 mg by mouth daily. 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 On IV antibiotics. Very poor prognosis given multidrug-resistant Pseudomonas hospital-acquired pneumonia. Appreciate palliative care efforts. Problem Qualifiers (1) Acute respiratory failure: Qualified Codes: J96.00 - Acute respiratory failure, unspecified whether with hypoxia or hypercapnia (2) Sacral decubitus ulcer: Qualified Codes: L89.152 - Pressure ulcer of sacral region, stage 2 (3) Chronic respiratory failure: Qualified Codes: J96.11 - Chronic respiratory failure with hypoxia Aleksandar Alford MD Oct 01, 2017 15:26
--- NOTE | 2017-10-01 20:27 | HHI.PR ---
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 No new complaint no fever CXR right lung infilt/ atelactesis Objective Vital Signs Vital Signs Date Time Temp Pulse Resp B/P (MAP) Pulse Ox O2 Delivery O2 Flow Rate FiO2 10/01/17 16:00 98.6 74 20 130/74 (92) 94 10/01/17 15:00 55 10/01/17 12:10 93 Trach Collar 7.00 70 T-Piece Humidified 10/01/17 12:00 98.0 54 18 118/84 (95) 95 10/01/17 12:00 77 Trach Collar 7.00 70 T-Piece Humidified 10/01/17 08:24 94 T-piece 7.00 70 10/01/17 08:00 98.4 50 18 138/70 (92) 95 10/01/17 07:00 96 Trach Collar 7.00 70 T-Piece Humidified 10/01/17 07:00 52 10/01/17 05:50 92 T-piece 7.00 98 09/30/17 23:00 60 09/30/17 22:08 95 T-piece 7.00 70 I/O 09/30/17 09/30/17 09/30/17 10/01/17 10/01/17 10/01/17 07:00 15:00 23:00 07:00 15:00 23:00 Intake Total 525 ml 800 ml 1050 ml Output Total 400 ml 700 ml 400 ml 450 ml Balance 125 ml -700 ml 400 ml 600 ml Intake Oral 0 ml Tube Feeding 225 ml 450 ml 500 ml Tube Irrigant 100 ml 200 ml 550 ml Other 200 ml 150 ml Output Urine Total 400 ml 700 ml 400 ml 450 ml # Voids 3 # Bowel Movements 5 1 Result Diagram: 09/30/17 0808 09/30/17 0808 Objective Remarks GENERAL: Elderly female,NAD SKIN: Warm and dry. HEAD: Normocephalic. EYES: No scleral icterus. No injection or drainage. NECK: Supple, trachea midline. No JVD or lymphadenopathy. CARDIOVASCULAR: Regular rate and rhythm without murmurs, gallops, or rubs. RESPIRATORY: Breath sounds equal bilaterally. No accessory muscle use. GASTROINTESTINAL: Abdomen soft, non-tender, nondistended. MUSCULOSKELETAL: No cyanosis, or edema. BACK: Nontender without obvious deformity. No CVA tenderness. A/P Assessment and Plan RF,S/P Trach CVA Pneumonia Pleural effusion Pseudomonas Tracheobronchitis, ? colonisation PLAN: Cont trach collar for airway protection Aerosol nebs Supplement 02 Trach care TF Mucomyst Nebs If lungs not clearing, will need bronch Abx per ID Chris Rizo MD Oct 01, 2017 20:27
[2017-10-01] MEDS: DEXTROSE 50% IN WATER 50 ML SYRINGE IV PUSH PRN (23:28)
[2017-10-02] VITALS (11 sets, daily range): BP systolic 104–126; BP diastolic 48–68; PULSE 45–54; RESP 12–18; TEMP 97.9–98.5; O2SAT 92–99
[2017-10-02] MEDS: RESP: ALBUTEROL 2.5 MG/IPRATROPIUM 0.5 MG NEB (PRN) NEB ×4 (04:19→21:56)
[2017-10-02] MEDS: RESP: ACETYLCYSTEINE 10% 30 ML NEB NEB SCH ×4 (04:19→21:56)
[2017-10-02] MEDS: ARTIFICIAL TEARS OPTH SOLN 15 ML BTL EACH EYE SCH ×3 (05:29→21:04)
[2017-10-02] MEDS: hydrALAZINE HCL 10 MG TAB PEG SCH ×3 (05:29→21:04)
[2017-10-02] MEDS: HEPARIN SODIUM - SQ 10,000 UNITS/ML VIAL SQ SCH ×3 (05:29→21:04)
[2017-10-02] MEDS: INSULIN ASPART SUPPLEMENTAL SCALE SQ SCH ×3 (06:00→17:55)
[2017-10-02] MEDS: LANSOPRAZOLE SOLUTAB 30 MG TAB NG SCH (07:59)
[2017-10-02] MEDS: SULFAMETHOXAZOLE-TRIMETHOPRIM 800-160 MG/20 ML UDC PEG SCH ×2 (07:59→21:03)
[2017-10-02] MEDS: POLYETHYLENE GLYCOL 17 GM PKG PEG SCH (07:59)
[2017-10-02] MEDS: ASPIRIN 325 MG TAB DOBHOFF SCH (07:59)
[2017-10-02] MEDS: CHOLECALCIFEROL (VIT D3) 5000 UNIT CAP PO SCH (07:59)
[2017-10-02] MEDS: DOXAZOSIN MESYLATE 1 MG TAB PO SCH (07:59)
[2017-10-02] MEDS: CALCIUM/VITAMIN D 250 MG/125 U TAB PO SCH ×3 (08:00→17:30)
[2017-10-02] MEDS: LACTOBACILLUS ACIDOPHILUS TAB PO SCH ×2 (08:00→21:03)
[2017-10-02] MEDS: SODIUM CHLORIDE 0.9% FLUSH 5 ML FLUSH IV FLUSH SCH ×2 (08:01→21:00)
[2017-10-02] MEDS: BENEPROTEIN POWDER 1 PACK G-TUBE SCH ×3 (08:01→17:30)
[2017-10-02] MEDS: INSULIN HUMAN NPH 1,000 UNITS/10 ML VIAL SQ SCH ×3 (08:44→17:31)
[2017-10-02] MEDS: RESP: COLISTIN 150 MG VIAL NEB SCH ×3 (08:50→21:56)
--- NOTE | 2017-10-02 11:57 | HHI.PR ---
Subjective Remarks Patient shows stability compared to previous day. She is unable to verbalize to give history. No fevers overnight. Objective Vital Signs Date Time Temp Pulse Resp B/P (MAP) Pulse Ox O2 Delivery O2 Flow Rate FiO2 10/02/17 10:46 54 10/02/17 09:56 98.5 50 14 104/48 (66) 92 10/02/17 09:25 97 Trach Collar 7.00 98 10/02/17 08:27 99 T-piece 7.00 98 10/02/17 04:00 45 18 126/68 (87) 99 10/01/17 23:00 48 10/01/17 21:08 96 70 10/01/17 20:00 98.3 63 18 116/90 (99) 98 10/01/17 20:00 98 Trach Collar 7.00 98 10/01/17 16:00 98.6 74 20 130/74 (92) 94 10/01/17 15:00 55 10/01/17 12:10 93 Trach Collar 7.00 70 T-Piece Humidified 10/01/17 12:00 98.0 54 18 118/84 (95) 95 10/01/17 12:00 77 Trach Collar 7.00 70 T-Piece Humidified I/O 10/01/17 10/01/17 10/01/17 10/02/17 10/02/17 10/02/17 07:00 15:00 23:00 07:00 15:00 23:00 Intake Total 800 ml 1050 ml 845 ml Output Total 400 ml 450 ml 400 ml Balance 400 ml 600 ml 445 ml Intake Oral 0 ml Tube Feeding 450 ml 500 ml 495 ml Tube Irrigant 200 ml 550 ml 200 ml Other 150 ml 150 ml Output Urine Total 400 ml 450 ml 400 ml # Voids 3 # Bowel Movements 5 1 2 Result Diagram: 09/30/17 0808 09/30/17 0808 Objective Remarks GENERAL: NAD, A&Ox0 HEAD: Normocephalic. NECK: Supple, trachea midline. No lymphadenopathy. Tracheostomy present. EYES: No scleral icterus. No injection or drainage. CARDIOVASCULAR: Regular rate and rhythm without murmurs, gallops, or rubs. RESPIRATORY: Breath sounds equal bilaterally. No accessory muscle use. GASTROINTESTINAL: Abdomen soft, non-tender, nondistended. MUSCULOSKELETAL: No cyanosis, or edema. SKIN: Warm and dry. NEURO: No focal neurological deficitis. A/P Problem List: (1) CVA (cerebral vascular accident) ICD Code: I63.9 - Cerebral infarction, unspecified Status: Chronic Assessment and Plan 76 y/o female with HTN, DM admitted for DKA and hip fracture s/p large CVA . No signs of acute pain. Vital signs stable. Continue tracheostomy care and follow patient clinically for signs of change. 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
--- NOTE | 2017-10-02 19:41 | RADRPT ---
EXAM DATE/TIME: 10/02/2017 19:02 [facility] COMPARISON: CHEST SINGLE AP, September 28, 2017, 9:36. INDICATIONS : Dyspnea. MEDICAL HISTORY : Stroke. Hysterectomy. Diabetes. SURGICAL HISTORY : Tracheostomy ENCOUNTER: Subsequent ACUITY: 4 - 6 months PAIN SCORE: Non-responsive. LOCATION: Bilateral chest FINDINGS: A tracheostomy tube is stable in position with its tip 2-3 cm above the valerie. Diffuse infiltrates a re again noted consistent with pulmonary edema or pneumonia. The heart is stable. Degenerative change s and scoliosis of the thoracic spine are noted. CONCLUSION: Persistent diffuse infiltrates consistent with pulmonary edema or pneumonia. Clinical correlation is recommended. Enzo Farooq MD on October 02, 2017 at 19:37 Board Certified Radiologist. This report was verified electronically.
--- NOTE | 2017-10-02 19:57 | HHI.PR ---
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 No new complaint no fever CXR right lung infilt/ atelactesis No new complaint Objective Vital Signs Vital Signs Date Time Temp Pulse Resp B/P (MAP) Pulse Ox O2 Delivery O2 Flow Rate FiO2 10/02/17 19:00 99 Trach Collar 9.00 98 10/02/17 17:25 98.0 50 14 108/52 (70) 98 10/02/17 15:45 98 T-piece 11.00 98 10/02/17 15:39 51 10/02/17 14:20 99 Trach Collar 9.00 98 10/02/17 12:44 97.9 52 12 111/57 (75) 96 10/02/17 10:46 54 10/02/17 09:56 98.5 50 14 104/48 (66) 92 10/02/17 09:25 97 Trach Collar 7.00 98 10/02/17 08:27 99 T-piece 7.00 98 10/02/17 04:00 45 18 126/68 (87) 99 10/01/17 23:00 48 10/01/17 21:08 96 70 10/01/17 20:00 98.3 63 18 116/90 (99) 98 10/01/17 20:00 98 Trach Collar 7.00 98 I/O 10/01/17 10/01/17 10/01/17 10/02/17 10/02/17 10/02/17 07:00 15:00 23:00 07:00 15:00 23:00 Intake Total 800 ml 1050 ml 845 ml Output Total 400 ml 450 ml 400 ml Balance 400 ml 600 ml 445 ml Intake Oral 0 ml Tube Feeding 450 ml 500 ml 495 ml Tube Irrigant 200 ml 550 ml 200 ml Other 150 ml 150 ml Output Urine Total 400 ml 450 ml 400 ml # Voids 3 # Bowel Movements 5 1 2 Result Diagram: 09/30/17 0808 09/30/17 08 Objective Remarks GENERAL: Elderly female,NAD SKIN: Warm and dry. HEAD: Normocephalic. EYES: No scleral icterus. No injection or drainage. NECK: Supple, trachea midline. No JVD or lymphadenopathy. CARDIOVASCULAR: Regular rate and rhythm without murmurs, gallops, or rubs. RESPIRATORY: Breath sounds equal bilaterally. No accessory muscle use. GASTROINTESTINAL: Abdomen soft, non-tender, nondistended. MUSCULOSKELETAL: No cyanosis, or edema. BACK: Nontender without obvious deformity. No CVA tenderness. A/P Assessment and Plan RF,S/P Trach CVA Pneumonia Pleural effusion Pseudomonas Tracheobronchitis, ? colonisation PLAN: Cont trach collar for airway protection Aerosol nebs Supplement 02 Trach care TF Mucomyst Nebs If lungs not clearing, will need bronch Abx per ID DW RN at BS Chris Rizo MD Oct 02, 2017 19:57
[2017-10-02 20:35] LABS: HEMATOCRIT 26.3 % (35.0-46.0); HEMOGLOBIN 8.9 GM/DL (11.6-15.3); MEAN CELL VOLUME 97.6 FL (80.0-100.0); MEAN CORPUSCULAR HEMOGLOBIN 32.9 PG (27.0-34.0); MEAN CORPUSCULAR HGB CONC 33.7 % (32.0-36.0); MEAN PLATELET VOLUME 9.2 FL (7.0-11.0); PLATELET COUNT 279 TH/MM3 (150-450); RED CELL DISTRIBUTION WIDTH 15.8 % (11.6-17.2); WHITE BLOOD COUNT 9.6 TH/MM3 (4.0-11.0)
[2017-10-02 21:05] LABS: BICARBONATE 28.4 MEQ/L (21.0-32.0); CALCIUM 9.6 MG/DL (8.5-10.1); CREATININE 0.81 MG/DL (0.50-1.00)
[2017-10-03] VITALS (12 sets, daily range): BP systolic 109–153; BP diastolic 56–70; PULSE 42–81; RESP 16–20; TEMP 98.5–99.1; O2SAT 97–100
[2017-10-03] MEDS: HEPARIN SODIUM - SQ 10,000 UNITS/ML VIAL SQ SCH ×3 (05:16→22:00)
[2017-10-03] MEDS: hydrALAZINE HCL 10 MG TAB PEG SCH ×3 (05:16→23:48)
[2017-10-03] MEDS: ARTIFICIAL TEARS OPTH SOLN 15 ML BTL EACH EYE SCH ×3 (05:16→20:28)
[2017-10-03] MEDS: RESP: ALBUTEROL 2.5 MG/IPRATROPIUM 0.5 MG NEB (PRN) NEB ×2 (05:38→08:30)
[2017-10-03] MEDS: RESP: ACETYLCYSTEINE 10% 30 ML NEB NEB SCH ×2 (05:38→08:30)
[2017-10-03] MEDS: INSULIN ASPART SUPPLEMENTAL SCALE SQ SCH ×4 (06:00→18:00)
[2017-10-03 07:48] LABS: AUTOMATED NEUTROPHIL # 8.8 TH/MM3 (1.8-7.7); BASOPHIL # 0.1 TH/MM3 (0-0.2); BASOPHIL % 0.9 % (0.0-2.0); EOSINOPHIL # 0.5 TH/MM3 (0-0.4); EOSINOPHIL % 3.8 % (0.0-4.0); HEMATOCRIT 27.5 % (35.0-46.0); HEMOGLOBIN 9.1 GM/DL (11.6-15.3); LYMPH % 19.6 % (9.0-44.0); LYMPHOCYTE # 2.5 TH/MM3 (1.0-4.8); MEAN CELL VOLUME 98.6 FL (80.0-100.0); MEAN CORPUSCULAR HEMOGLOBIN 32.5 PG (27.0-34.0); MEAN PLATELET VOLUME 8.7 FL (7.0-11.0); MONO % 5.5 % (0.0-8.0); MONOCYTE # 0.7 TH/MM3 (0-0.9); NEUT % 70.2 % (16.0-70.0); PLATELET COUNT 311 TH/MM3 (150-450); RED BLOOD COUNT 2.79 MIL/MM3 (4.00-5.30); RED CELL DISTRIBUTION WIDTH 15.8 % (11.6-17.2); WHITE BLOOD COUNT 12.6 TH/MM3 (4.0-11.0)
[2017-10-03 08:13] LABS: BICARBONATE 30.5 MEQ/L (21.0-32.0); CALCIUM 9.6 MG/DL (8.5-10.1); CREATININE 0.83 MG/DL (0.50-1.00)
[2017-10-03] MEDS: RESP: COLISTIN 150 MG VIAL NEB SCH ×2 (08:29→15:31)
[2017-10-03 08:46] LABS: BANDS 1 % (0-6); BASOPHILS 3 % (0-2); LYMPHOCYTES 13 % (9-44); METAMYELOCYTES 2 % (0-1); MONOCYTES 4 % (0-8); NEUTROPHIL # MANUAL DIFF 8.9 TH/MM3 (1.8-7.7); POLYS (SEG NEUTROPHILS) 68 % (16-70)
[2017-10-03] MEDS: BENEPROTEIN POWDER 1 PACK G-TUBE SCH (09:00)
[2017-10-03] MEDS: POLYETHYLENE GLYCOL 17 GM PKG PEG SCH (09:00)
[2017-10-03] MEDS: SODIUM CHLORIDE 0.9% FLUSH 5 ML FLUSH IV FLUSH SCH ×2 (09:00→20:29)
[2017-10-03] MEDS: DOXAZOSIN MESYLATE 1 MG TAB PO SCH (09:00)
[2017-10-03] MEDS ORDERED: SODIUM POLYSTYRENE SULFONATE SUSP 15 GM/60 ML CUP PO SCH (09:00)
[2017-10-03] MEDS: CHOLECALCIFEROL (VIT D3) 5000 UNIT CAP PO SCH (09:08)
[2017-10-03] MEDS: LACTOBACILLUS ACIDOPHILUS TAB PO SCH (09:08)
[2017-10-03] MEDS: SULFAMETHOXAZOLE-TRIMETHOPRIM 800-160 MG/20 ML UDC PEG SCH (09:08)
[2017-10-03] MEDS: ASPIRIN 325 MG TAB DOBHOFF SCH (09:08)
[2017-10-03] MEDS: SODIUM CHLOR 0.9% 1000 ML INJ 1,000 ML IV SCH ×3 (09:08→20:26)
[2017-10-03] MEDS: LANSOPRAZOLE SOLUTAB 30 MG TAB NG SCH (09:55)
[2017-10-03] MEDS: CALCIUM/VITAMIN D 250 MG/125 U TAB PO SCH (09:56)
[2017-10-03] MEDS ORDERED: LEVOFLOXACIN 500 MG PREMIX INJ 100 ML IV SCH (10:00)
[2017-10-03] MEDS: INSULIN HUMAN NPH 1,000 UNITS/10 ML VIAL SQ SCH ×3 (11:46→18:43)
--- NOTE | 2017-10-03 11:52 | HHI.PR ---
Subjective Remarks Elevated potassium level this morning. Patient unable to express complaints. No fevers overnight. No need for BiPAP overnight. Leukocytosis is present, infiltrate on imaging. Objective Vital Signs Date Time Temp Pulse Resp B/P (MAP) Pulse Ox O2 Delivery O2 Flow Rate FiO2 10/03/17 08:31 98 T-piece 5.00 98 10/03/17 04:00 46 16 120/56 (77) 98 10/03/17 00:00 98.5 56 16 109/56 (73) 99 10/02/17 23:00 47 10/02/17 21:57 98 T-piece 98 10/02/17 20:00 98.0 14 112/51 (71) 99 10/02/17 19:00 99 Trach Collar 9.00 98 10/02/17 17:25 98.0 50 14 108/52 (70) 98 10/02/17 15:45 98 T-piece 11.00 98 10/02/17 15:39 51 10/02/17 14:20 99 Trach Collar 9.00 98 10/02/17 12:44 97.9 52 12 111/57 (75) 96 I/O 10/02/17 10/02/17 10/02/17 10/03/17 10/03/17 10/03/17 07:00 15:00 23:00 07:00 15:00 23:00 Intake Total 845 ml 300 ml Output Total 400 ml Balance 445 ml 300 ml Tube Feeding 495 ml Tube Irrigant 200 ml Other 150 ml 300 ml Output Urine Total 400 ml # Voids 3 # Bowel Movements 2 4 Result Diagram: 10/03/17 0732 10/03/17 0732 Objective Remarks GENERAL: NAD, A&Ox0 HEAD: Normocephalic. NECK: Supple, trachea midline. No lymphadenopathy. Tracheostomy present. EYES: No scleral icterus. No injection or drainage. CARDIOVASCULAR: Regular rate and rhythm without murmurs, gallops, or rubs. RESPIRATORY: Breath sounds equal bilaterally. No accessory muscle use. GASTROINTESTINAL: Abdomen soft, non-tender, nondistended. MUSCULOSKELETAL: No cyanosis, or edema. SKIN: Warm and dry. NEURO: No focal neurological deficitis. A/P Problem List: (1) CVA (cerebral vascular accident) ICD Code: I63.9 - Cerebral infarction, unspecified Status: Chronic Assessment and Plan 76 y/o female with HTN, DM admitted for DKA and hip fracture s/p large CVA . No signs of acute pain. Vital signs stable. Continue tracheostomy care and follow patient clinically for signs of change. 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
[2017-10-03] MEDS ORDERED: POLYETHYLENE GLYCOL 17 GM PKG PEG PRN (12:00)
[2017-10-03] MEDS ORDERED: BENEPROTEIN POWDER 1 PACK G-TUBE PRN (12:00)
[2017-10-03] MEDS: CALCIUM/VITAMIN D 250 MG/125 U TAB PEG SCH ×2 (15:01→18:44)
--- NOTE | 2017-10-03 17:20 | HHI.PR ---
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 no fever CXR persistant lung infilt, effusion K= high Had kayexlate has diarrhoea Worsening oxygenation Objective Vital Signs Vital Signs Date Time Temp Pulse Resp B/P (MAP) Pulse Ox O2 Delivery O2 Flow Rate FiO2 10/03/17 15:00 50 10/03/17 12:00 99.0 42 16 117/58 (77) 10/03/17 08:31 98 T-piece 5.00 98 10/03/17 08:00 98.9 50 16 109/59 (76) 10/03/17 07:00 48 10/03/17 07:00 99 Trach Collar 7.00 98 10/03/17 04:00 46 16 120/56 (77) 98 10/03/17 00:00 98.5 56 16 109/56 (73) 99 10/02/17 23:00 47 10/02/17 21:57 98 T-piece 98 10/02/17 20:00 98.0 14 112/51 (71) 99 10/02/17 19:00 99 Trach Collar 9.00 98 10/02/17 17:25 98.0 50 14 108/52 (70) 98 I/O 10/02/17 10/02/17 10/02/17 10/03/17 10/03/17 10/03/17 07:00 15:00 23:00 07:00 15:00 23:00 Intake Total 845 ml 300 ml 100 ml Output Total 400 ml Balance 445 ml 300 ml 100 ml IV Total 100 ml Tube Feeding 495 ml Tube Irrigant 200 ml Other 150 ml 300 ml Output Urine Total 400 ml # Voids 3 # Bowel Movements 2 4 Result Diagram: 10/03/17 0732 10/03/17 1310 Objective Remarks GENERAL: Elderly female,NAD SKIN: Warm and dry. HEAD: Normocephalic. EYES: No scleral icterus. No injection or drainage. NECK: Supple, trachea midline. No JVD or lymphadenopathy. CARDIOVASCULAR: Regular rate and rhythm without murmurs, gallops, or rubs. RESPIRATORY: Breath sounds equal bilaterally. No accessory muscle use. GASTROINTESTINAL: Abdomen soft, non-tender, nondistended. MUSCULOSKELETAL: No cyanosis, or edema. BACK: Nontender without obvious deformity. No CVA tenderness. A/P Assessment and Plan RF,S/P Trach CVA Pneumonia Pleural effusion Pseudomonas Tracheobronchitis, Hyperkalemia Hypoxia PLAN: Cont trach collar for airway protection Aerosol nebs Supplement 02 Trach care TF Mucomyst Nebs Abx per ID DW RN at BS DW Daughter, pt will need closer monitoring and possible need for Vent support [place] [facility] [place] [employer] [facility] Charge nurse Chris May MD Oct 03, 2017 17:20
--- NOTE | 2017-10-03 19:00 | HHI.CCPN ---
Subjective Remarks/Hospital Course 04/24: 76-year-old female with a medical history significant for prior stroke, diabetes mellitus who was admitted with DKA and a hip fracture for which she underwent ORIF on 04/21. Patient developed altered mental status and was last noted to be okay around 5:30 AM. Subsequently there was a change in her mental status and she was noted to not be moving her right side for which stroke alert was called. Head CT showed large left MCA territory ischemic infarct with edema. Patient was transferred to the ICU by family medicine service in the critical care consult was requested. I evaluated the patient following arrival to the ICU. At that time she was laying in bed with her eyes open however not following commands and had a dense right hemiplegia. Patient was also evaluated by Dr. Malave from neurology. [facility] further discussed current event with patient's daughter following her arrival to the ICU. Per the daughter patient has been living with her since her stroke in 2014 and does ambulate however has been having problems with memory and incontinence as well as gait difficulties. She does not feel patient would want intubation or tracheostomy or PEG tube. 04/25: Patient remains encephalopathic, awake though not following commands consistently. Dense right hemiplegia persists. Appears to be awake enough to protect airway currently. Patient's daughter rescinded DNR and made a full code last evening. 04/26: Remains encephalopathic, not following commands. On Dobbhoff for tube feeds at 30 cc per hour. Had urinary retention and drained 2 L of urine after placing Moser catheter today. CT head done this morning with large left MCA territory infarct with left to right midline shift and significant cerebral edema. Hyperglycemia noted. Patient given mannitol earlier for increasing cerebral edema. 04/27: Remains encephalopathic, not following commands. On Dobbhoff tube feeds at 30 cc per hour. When into A. fib with RVR last night which responded with Lopressor 5 mg IV 1 dose. 04/28: Remains encephalopathic, arousable, not following commands. Moves left upper extremity spontaneously. Tolerating Dobbhoff tube feeds. Remains on nasal cannula. 04/29: Encephalopathic, eyes be arousable, moves left upper extremity spontaneously and occasionally opens eyes. Dense right hemiplegia and aphasia persists. On nasal cannula. Dobbhoff tube feeds being advanced. Patient was transfused 1 unit PRBCs yesterday. Urine culture with yeast from yesterday for which fluconazole being started. Had brief run of A. fib with RVR which improved with Lopressor IV, currently in sinus rhythm. 04/30: Worsening hypoxemic respiratory failure, currently on partial nonrebreather. Remains lethargic. WBC count increased from 14.6 today 20.7. Chest x-ray shows bilateral worsening infiltrates and small pleural effusions. Sodium 154, weight up by 8 KG. Albumin 1 mg Bumex 1. Also one dose of albumin. Remains in sinus tachycardia. Tmax 101.3 05/01: Patient was intubated yesterday for lack of airway protection, and severe hypoxemic respiratory failure from aspiration pneumonia involving multiple lobes. Patient is on the vent lethargic, no spontaneous eye opening. Chest x- ray remains unchanged. Remains intermittently febrile Tmax 101.3. WBC count improving 05/02: Remains critically ill with no improvement in mental status. Spiking fever of 101.7. Blood culture and sputum culture with staph aureus sputum also growing GNR, WBC count 22,000 now indicating worsening sepsis. Daughter still requesting aggressive care. Palliative care is following 05/03: S/P large area dominant hemisphere CVA. No neurological improvement. Now with pneumonia (infiltrate, fever, leukocytosis) and appropriate abx coverage. She will have a hard time surviving the hip fx, CVA, and pneumonia. Palliative Care needs to be a mainstay of our plan. 05/04: No improvement in neuro status. Sputum C&S allows us to narrow abx coverage to levaquin alone. Lungs remain quite congested. Enteral nutrition tolerated. 05/05: No improvement in neuro status. Moves left arm spontaneously. Flaccid right side. Unresponsive. Persistent mild hypoglycemia - will cut Levemir 50%. Abdomen more distended, check KUB. 05/06: CT head with massive left MCA infarction and > 1 cm shift in right handed woman. She opens eyes, does not track. 05/07: Patient open eyes. Attempts to respond. [place] speaking. Tolerating tube feeds. Positive bowel movement. Volume overloaded. 05/08: Tmax 99.4. Potassium being replaced. Ultrasound gallbladder currently pending. Transaminases are trending downward. Gently diurese. 05/09: Alk phos decreasing. Remains with good urine output. Neurological status not improving. 05/10: Fixed neuro deficit unchanged. Profound CVA. 05/11: Appears to track with eyes today. No improvement in motor function. Remains very edematous, diuretics doubled. 05/12: Continued thick secretions. Afebrile, leukocytosis resolved. 05/13: CT head with completed left MCA stroke, persistent edema and 5 mm shift away. Does not last long on SBTs - major decision now is trach/PEG. 05/14: Daughter has decided to proceed with trach and PEG. I have been pessimistic with her about chances for a meaningful recovery. 05/15: Plan for trach today. No change in neuro status. Still ventilator dependent. 05/16: Trach completed. Await PEG and disposition. 05/17: PEG placed 05/16. Start TFs today after nutrition consult. Work to place patient. 05/18: No improvement. Does open eyes, no focus or tracking. Completed large dominant (left) hemisphere CVA in right handed woman with severe deficit. Medicaid pending status, [facility] is following. 05/19: no improvements in neuro exam. ready for LTAC. will d/c moser and rectal tubes. 05/20: no changes or improvements. very difficult placement due to patient not [place] citizen. 05/21: no improvements. resting on vent overnight due to distress. 05/22: no neurologic changes. no improvements. attempted T-piece which failed after 10 minutes. 05/23: no improvements. poor prognosis. poor neuro exam. still failing weaning trials. 05/24: no improvements or changes. still failing t-piece trials. 05/25: No acute changes of improvement overnight. Failed CPAP due to apnea, tried again currently tolerating. Neurological exam unchanged. 05/26: No improvement in neurological function. 05/27: Patient has required Moser catheter because of breakdown of skin on upper thighs and groin. Urine has become infected, will treat. 05/28: Some drainage from around trach (placed 2 weeks ago). Will change out trach tube and inspect neck wound. I&O straight cath q6h order entered 05/17. 05/29: No improvement, remains obtunded. Failed CPAP trials yesterday and again today due to apnea. Moser placed due to persistent urinary retention 05/30: Obtunded, unresponsive. Failed SBTs, remains ventilator dependent. 05/31: Patient continues to fail SBT failed yesterday due to apnea. Neuro exam remains unchanged. 06/01: No acute changes overnight, 06/02: no changes. ekg done overnight for ? EKG changes seen on telemetry which were not visualized on EKG. 06/03: no improvements or changes. had long conversation with daughter yesterday. only facility which would accept patient is in [place] and daughter is refusing to allow patient to go there because it is "too far away." Daughter continues to push for aggressive care despite no improvements, and resistant to Hospice. Patient does not need acute inpatient therapy but lacks funding for appropriate disposition. 06/04: No acute events overnight, failed SBT due to apnea. 06/05: No acute events, continues to fail spontaneous breathing trials. Unable to wean 06/06 Currently tolerating CPAP. Will attempt TP today up to 4 hours. No acute events overnight 06/07: Tolerating trach collar/T-piece. Transfer soon. 06/08: Awaiting transfer. 06/09: Remains ventilator dependent. No improvement in neurological function. 06/10: No improvement. Daughter is not attending preplanned meetings to discuss disposition 06/12: Afebrile. Neurologically stable and unchanged. Noted sodium 135. Adding sodium chloride tablets 1 today. Not on free water.. Tolerating tube feeds at goal 45 cc an hour. 06/13: No improvement in neurological function. 06/14: No improvement. Fluid balance correct. Gas exchange acceptable. 06/15: No improvement. Obtunded and unresponsive. 06/16: no improvements in mental status. KUB overnight with dilated small bowel loops. given methylnaltrexone and erythromycin. today abdomen is soft and tolerating tube feeds. 06/17: tolerated t-piece x 6 hours yesterday. rested on cpap overnight. no changes in encephalopathy. 06/18: Currently on ventilator overnight. Multiple bowel movements. Thick yellow secretions noted in ventilator circuit. Opens eyes. 06/19: Afebrile. Tolerating stretcher chair yesterday on PSV. Tolerating tube feeding. Neurologically unchanged. 06/20: Afebrile. Resting in bed in no acute distress in sitting position. Currently on ventilator set sitting. Tolerated stretcher chair/PSV trial 6 hours yesterday. Neurologically unchanged. 06/21: Tmax 100.8. Patient with copious thick yellow secretions. Tolerating tube feeds. Positive bowel movement. Lasted only 1 hour PSV yesterday 06/22: Tmax 99.9. Continues to have thick secretions. Tolerating tube feeding. Positive BM. 06/23: Afebrile. Continues to have thick tracheal secretions from tracheostomy site. Tolerating tube feeding. 3 bowels movements. Opens eyes to stimulation. Stares at you but does not follow commands. 06/24: Remains encephalopathic, on mechanical ventilation via tracheostomy. Tolerating PEG feeds 06/25: Remains encephalopathic on mechanical ventilation. Tolerated C Pap +5 with pressure support +10 all day yesterday. Tolerating PEG feeds. 06/26: No improvement.Vent dependent still. 06/27: Remains encephalopathic, on mech vent via trach. Daily CPAP trials. 06/28: Unable to wean from ventilator. 06/29: Neurologically unchanged. Remains on mechanical ventilation. Daily C Pap trials ongoing. 06/30: Remains encephalopathic. On C Pap overnight. Tolerating tube feeds. 07/01: No change in neurologic status. On mechanical ventilation via tracheostomy. Tolerating tube feeds. 07/02: Remains encephalopathic. No change in neurologic status. On mechanical ventilation via tracheostomy. Daily C Pap trials ongoing. 07/03: Occasional spontaneous eye opening however remains encephalopathic. On mechanical ventilation via tracheostomy. 07/04: Tmax 99.2. Multiple bowel movements overnight. Tolerating tube feeds. On T piece trial at 5 L since noon yesterday. Otherwise neurologically unchanged. Daughter encouraged by movement of left leg. 07/05: Currently resting in bed on T piece 36 hours. Tolerates chair. No changes neurologically. Positive BM's. Tolerating her tube feeding. 07/06: Continue T-piece trials, if tolerated consider transfer to floor. 07/07: Extended T-piece trial. Plan transfer to floor. 07/09: Patient is experiencing apnea episodes and had to be placed back on higher FiO2.. Hold transfer. 07/10: X-ray left hip shows good anatomic alignment. Still requiring elevated FiO2. 07/11: Prealbumin 20, nutritional support is adequate and status is stable. No neurological improvement. 07/12: No improvement in neurological function. Continued acceptable respiratory effort. 07/13: No change. Subjective 10/03/17 Dr. Rizo notified diagnostic sales specialist that patient would be transferring to ICU. Patient is known to [facility] service. She was originally admitted 04/20/17 after a fall with hip fracture resulting in ORIF 04/21. Postoperatively, she developed large R MCA stroke with midline shift. Her neurologic condition remained poor and she underwent trach 05/15/17 and PEG 05/16/17. She was eventually transitioned to Tpiece and transferred to floor. She has suffered from multiple infectious complications due to her persistent bedfast and trach dependent state. 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 She has been on trach collar with worsening hypoxemia therefore [place] [facility] CXR from yesterday demonstrates bilateral pulmonary infiltrates. She has also had hyperkalemia today up to 6.7 which has been treated with kayexalate, down to 6. Objective Vital Signs Date Time Temp Pulse Resp B/P (MAP) Pulse Ox O2 Delivery O2 Flow Rate FiO2 10/03/17 16:00 99.1 58 20 115/68 (84) 10/03/17 08:31 98 T-piece 5.00 98 Intake and Output 10/03/17 10/03/17 10/04/17 08:00 16:00 00:00 Intake Total 300 ml 100 ml 1040 ml Balance 300 ml 100 ml 1040 ml Result Diagram: 10/03/17 0732 10/03/17 1310 Imaging Last Impressions Chest X-Ray 06/24/17 0600 Signed Impressions: Service Date/Time: Saturday, June 24, 2017 06:00 - CONCLUSION: Bilateral patchy infiltrates slightly worsened. Benja Ramsey MD Liver Ultrasound 06/19/17 0000 Signed Impressions: Service Date/Time: June 13:20 - CONCLUSION: 1. Mildly increased echotexture of the liver characteristic of hepatic steatosis. 2. Gallbladder sludge. Obdulio Sam MD Abdomen X-Ray 06/16/17 0000 Signed Impressions: Service Date/Time: Friday, June 16, 2017 04:48 - CONCLUSION: 1. Continued small bowel ileus. There has been no significant change when compared to the prior exam. Toy Duran MD Head CT 05/15/17 0000 Signed Impressions: Service Date/Time: May 19:59 - CONCLUSION: 1. 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 2. No bleed or new/acute infarct. Obdulio Simms MD Gall Bladder Ultrasound 05/08/17 0000 Signed Impressions: Service Date/Time: May 08:23 - CONCLUSION: Focally unremarkable appearance of the gallbladder Obdulio Chnu MD Abdomen/Pelvis CT 05/07/17 0000 Signed Impressions: Service Date/Time: Sunday, May 07, 2017 13:23 - CONCLUSION: 1. Large left pneumothorax. 2. Bilateral lower lobe consolidation and bilateral moderate size pleural effusions. 3. Significant soft tissue thickening of the right lateral chest wall and left gluteus muscle. 4. Mild ascites. The findings were called to Dr. Carney. Deangelo Zamora MD Hip and Pelvis X-Ray 05/05/17 0000 Signed Impressions: Service Date/Time: Friday, May 05, 2017 10:59 - CONCLUSION: Left proximal femur trochanteric/subtrochanteric fracture lucency visualized. Postoperative changes. Choco Mustafa MD Chest CT 04/30/17 0000 Signed Impressions: Service Date/Time: Sunday, April 30, 2017 09:20 - CONCLUSION: 1. Bilateral pulmonary infiltrates more pronounced within the lower lobes with tiny bilateral pleural effusions. Material seen filling the lower lobe bronchi bilaterally either related to purulent material or perhaps mucus plugging. Deangelo Wren Jr., MD Carotid Artery Ultrasound 04/24/17 0000 Signed Impressions: Service Date/Time: April 09:45 - CONCLUSION: 1. No hemodynamically significant carotid artery stenosis. Arnie Middleton MD Hip X-Ray 04/21/17 0000 Signed Impressions: Service Date/Time: Friday, April 21, 2017 11:36 - CONCLUSION: Fluoroscopic images during placement of intramedullary siomara left femur. Benja Ramsey MD Objective Remarks GENERAL: Elderly female who is laying [place] [facility] [place] trach collar SKIN: Warm and dry, adequately perfused. There is a 2 cm stage II decubitus ulcer overlying sacrum. HEAD: Atraumatic. Normocephalic. EYES: Pupils equal and round, 3 mm and react to 2 mm bilaterally. No scleral icterus. No injection or drainage. ENT: No nasal bleeding or discharge. Mucous membranes moist NECK: 8.[address], cuff currently deflated. Trachea midline. No JVD. CARDIOVASCULAR: Regular rate and rhythm, rate in the 80s, sinus on the monitor. No murmurs rubs or gallops. RESPIRATORY: Tachypneic without accessory muscle use. Bilateral anterior Rales. Diminished right base. GASTROINTESTINAL: Abdomen soft, non-tender, nondistended. PEG in place with tube feeds running, site benign appearing. MUSCULOSKELETAL: Extremities without clubbing, cyanosis, or edema. No obvious deformities. NEUROLOGICAL: Eyes open spontaneously, does not appear to track. L gaze preference. R hemiparesis. Localizes with LUE. Very slight withdrawal of LLE to noxious stimuli. Procedures echo 04/24/2017 The left ventricular systolic function is low normal with an estimated ejection fraction in the range of 50- 55%. Mild concentric left ventricular hypertrophy. Normal left ventricular size. [id number] mitral valve regurgitation. A/P Assessment and Plan Neuro/Psych: Left MCA CVA - 5.5 mm of [id number] subfalcine herniation, diagnosed 04/24. Persistent right-sided hemiparesis. Prior History of stroke Continue Aspirin 325 mg by tube daily. Stroke occurred 04/24/17. Patient was not a candidate for thrombolysis per discussion with neurology and radiology at that time. Repeat head CT 05/15 showed slight improvement in the midline shift now 5.5 mm and mass effect Neurosurgery consulted 04/30- Dr. López, recommended conservative management, now signed off. Neurology Dr. Malave has followed previously, signed off. Cardiovascular: Hypertension Norvasc 10 mg po daily, cardura 1 mg peg daily, metoprolol 12.5 peg bid, hydralazine 10 mg per per peg q8 hours. clonidine prn SBP >160 Echocardiogram 04/24/17 - EF 50 to 55%. Mild concentric LVH. trace to mild MVR ASA 325 for stroke as per above Obtained BNP, elevated F/u Echo to eval EF. Pulmonary: Chronic Tracheostomy Now recurrent Acute hypoxemic respiratory failure Acute hypoxic respiratory failure - aspiration possible HCAP - previous episode resolved. Large left pneumothorax status post #10 Arabic chest tube 05/07 - resolved.Chest tube d/c'd 05/12/17 R pleural effusion - She previously underwent CT guided R thoracentesis in IR with removal of 1450 clear yellow fluid, pleural fluid studies not sent. Chronic respiratory failure, currently on Tpiece Obtained ABG and initially satisfactory on Tpiece: PH 7.42/PaCO2 40/PA O2 116/ bicarbonate 25.6. Respiratory condition declined, subsequently placed on PRVC TV 450 R 18 IT 1 PEEP 8 via 8 cuffed Shiley. ID remending bronchoscopy. Daughter had previously refused but now is amenable to bronchoscopy. Proceeded with bronchoscopy after placing on vent. Performed BAL from RML and lingula per Dr. Ranjan Saleh request. Ipratropium/albuterol aerosols every 6 hours with albuterol aerosols every 2 hours CXR with bilateral opacities which may be related to pneumonia but may have superimposed pulmonary edema. Will hold IVF and give Lasix (which may also assist with hyperkalemia) and will f/u CXR to determine response. GI/liver: Elevated transaminases, resolved Severe protein calorie malnutrition Small bowel ileus- resolved Hepatitis C antibody positive with negative genotype/viral load Hepatic steatosis Currently on PEG tube feeding with Glucerna 1.5 goal 45 cc an hour. Will hold for now in view of hyperkalemia. Beneprotein tid. Lansoprazole 30 mg daily for GI regimen Docusate sodium 100 mg twice a day for bowel regimen can be held while on kayexalate. Previous CT abdomen/pelvis 05/07 - mild ascites. Large left pneumothorax. Right greater than left pleural effusion. liver ultrasound 06/19 revealed hepatic steatosis and gallbladder sludge Endocrine: Diabetes mellitus NPH 10 units subcut tid, received dose ~1900 on 10/03. Will hold. Change IVF to D10 @ 30/hr. Bedside glucose q2 hours and notify MD if glucose <70 or >180 and SSI not due. SSI low-dose every 6 hours Holding glimepiride 4 mg by mouth daily /Renal/FEN: Hyperkalemia Hyponatremia, resolved Discontinue 0.9 NaCl @ 100 ml/hr. D10 @ 30/hr as dextrose source. Periwick catheter in place Stopping bactrim which can contribute to hyperkalemia. Discussed with ID. Continue kayexalate 15 gram po bid, trend potassium. Moser catheter previously placed for urinary retention on 04/26. Moser removed with q6h straight cath. Heme: Chronic Rivaroxaban use prior to admission Leukocytosis Normocytic anemia Thrombocytosis Follow CBC and coags. On subcutaneous enoxaparin 40 mg daily subcutaneous ID: MDR Pseudomonas aeruginosa and pneumonia (HCAP) MSSA bacteremia - resolved. Serratia/staph aureus pneumonia - resolved. C glabrata UTI - resolved. Citrobacter UTI - resolved. Serratia/MSSA sputum VAP resolved Current relevant cultures: 09/25/17 -sputum culture - Pseudomonas aeruginosa, multidrug resistant ( including Zerbaxa and Avycaz resistance). On Colestin nebs started 09/30 #4. Per ID, Dr. Ranjan Saleh On levaquin 500 mg IV daily 10/03, being discontinued per ID On Bactrim 800/160 bid which is being discontinued per d/w ID. Continue Lactinex bid. Prior cultures: Urine culture 04/26/17 sofie glabrata Blood culture 04/29/17 1 out of 4 bottles staph aureus Sputum culture 04/30/17 MSSA and Serratia. urine 05/07-> Serratia, treated. Urine 05/25: Citrobacter MSK: Left Intertroch Hip Fx s/p IMN 04/21/17. Vitamin D deficiency Sacral decubitus ulcer, Previously stage III, healing. Continue calcium vitamin D 250/125 one tablet 3x a day and cholecalciferol 5000 units daily. PT/OT evaluate and treat Maxsorb every 3 days/dressing changes every 3 days per wound care Continue bene protein one packet 3x a day Prophylaxis: SCDs. Heparin 5000 subcut q8 hours. GI - lansoprazole 30 mg by PEG tube daily ACCESS: PIV. FULL CODE Overall impression: Unfortunately, patient has suffered from a devastating L MCA stroke and has not made any progress toward functional recovery in over 5 months. 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 Her condition is terminal and transition to comfort measures would be appropriate. Her daughter states she wants to continue aggressive care stating that "we must try" because she "is not ready to lose her mother" who she states "was perfectly fine until all of these things happened to her in the hospital". Her discussion focuses on her mother's stroke and her concern for delay in diagnosis back in April. I discussed with her systemic TPA was not an option at the time due to her recent surgery. Discussed that she will likely from MDR infection. She is agreeable to proceeding with bronchoscopy following her d/w Dr. Ranjan Saleh. Patient was initially maintaining oxygenation on trach collar but decompensated and required placing on mechanical ventilation and bronchoscopy. Addressing hyperkalemia and hypoglycemia. Patient is critically ill and at risk for further decompensation. Discussed with Dr. Ranjan Saleh and daytime diagnostic sales specialist. CCT 40 minutes exclusive of separately billable procedures. Sherita Torres MD Oct 03, 2017 19:00
--- NOTE | 2017-10-03 20:02 | HHI.IDPN ---
Subjective Subjective Remarks is a 76 y/o CF with PMHx of stroke, diabetes mellitus who was admitted with DKA and a hip fracture for which she underwent ORIF on 04/21. While in hospital recovering, patient developed altered mental status. Due to worsening mental status a stroke alert was called. Head CT showed large left MCA territory ischemic infarct with edema. Patient was transferred to the ICU by family medicine service and critical care consult was requested. At the time of evaluation in [facility], patient was opening her eyes however not following commands and had a dense right hemiplegia. Patient was also evaluated by Dr. Malave from neurology. At baseline, the patient lives with her daughter since her stroke in 2014 and does ambulate however has been having problems with memory and incontinence as well as gait difficulties. She does not feel patient would want intubation or tracheostomy or PEG tube. On 05/01/17 patient was intubated for severe hypoxemic respiratory failure from aspiration pneumonia. She also had a temp of 101 F. Blood culture and sputum culture with staph aureus sputum also growing GNR, WBC count 22,000 now indicating worsening sepsis. 05/06/[address] head with massive left MCA infarction and > 1 cm shift in right handed woman. Meanwhile patient is also being treated for C.glabrata UTI. At the time of my evaluation, patient is in [facility] on ventilator. She spontaneously opens eyes, did not follow commands for me. She underwent a CT A/ P which shows a left side pneumothorax. is placing a pigtail chest tube. She has a moser in place but no central line. ID is reconsulted for evaluation and Mment of Right side pneumonia with possible collapse lung, very MDR PSAE. Overnight events reviewed with RN. Transferred to ICU due to resp distress. Now on vent. No fevers Secretions biggs moderate. PEG tube and trach site ok. Does not track or follow commands. UO ok. No diarrhea Antibiotics Colistin nebs Lines Line sites with no e.o infection. Past Medical History reviewed Allergies: Coded Allergies: No Known Allergies (Unverified , 04/20/17) Objective . Vital Signs Date Time Temp Pulse Resp B/P (MAP) Pulse Ox O2 Delivery O2 Flow Rate FiO2 10/03/17 16:00 99.1 58 20 115/68 (84) 10/03/17 15:00 50 10/03/17 12:00 99.0 42 16 117/58 (77) 10/03/17 08:31 98 T-piece 5.00 98 10/03/17 08:00 98.9 50 16 109/59 (76) 10/03/17 07:00 48 10/03/17 07:00 99 Trach Collar 7.00 98 10/03/17 04:00 46 16 120/56 (77) 98 10/03/17 00:00 98.5 56 16 109/56 (73) 99 10/02/17 23:00 47 10/02/17 21:57 98 T-piece 98 10/02/17 20:00 98.0 14 112/51 (71) 99 10/03/17 10/03/17 10/04/17 15:00 23:00 07:00 Intake Total 100 ml 1040 ml Balance 100 ml 1040 ml Intake Oral 0 ml IV Total 100 ml Tube Feeding 540 ml Tube Irrigant 400 ml Other 100 ml # Voids 4 # Bowel Movements 4 . Laboratory Tests Test 10/02/17 20:08 10/03/17 07:32 White Blood Count 9.6 TH/MM3 12.6 TH/MM3 Red Blood Count 2.70 MIL/MM3 2.79 MIL/MM3 Hemoglobin 8.9 GM/DL 9.1 GM/DL Hematocrit 26.3 % 27.5 % Mean Corpuscular Volume 97.6 FL 98.6 FL Mean Corpuscular Hemoglobin 32.9 PG 32.5 PG Mean Corpuscular Hemoglobin Concent 33.7 % 33.0 % Red Cell Distribution Width 15.8 % 15.8 % Platelet Count 279 TH/MM3 311 TH/MM3 Mean Platelet Volume 9.2 FL 8.7 FL Neutrophils (%) (Auto) 70.2 % Lymphocytes (%) (Auto) 19.6 % Monocytes (%) (Auto) 5.5 % Eosinophils (%) (Auto) 3.8 % Basophils (%) (Auto) 0.9 % Neutrophils # (Auto) 8.8 TH/MM3 Lymphocytes # (Auto) 2.5 TH/MM3 Monocytes # (Auto) 0.7 TH/MM3 Eosinophils # (Auto) 0.5 TH/MM3 Basophils # (Auto) 0.1 TH/MM3 CBC Comment AUTO DIFF Differential Total Cells Counted 100 Neutrophils % (Manual) 68 % Band Neutrophils % 1 % Lymphocytes % 13 % Monocytes % 4 % Eosinophils % 9 % Basophils % 3 % Neutrophils # (Manual) 8.9 TH/MM3 Metamyelocytes 2 % Differential Comment FINAL DIFF MANUAL Platelet Estimate NORMAL Platelet Morphology Comment NORMAL Red Cell Morphology Comment NORMAL Laboratory Tests Test 10/02/17 20:08 10/03/17 07:32 10/03/17 13:10 Blood Urea Nitrogen 65 MG/DL 67 MG/DL Creatinine 0.81 MG/DL 0.83 MG/DL Random Glucose 156 MG/DL 132 MG/DL Calcium Level 9.6 MG/DL 9.6 MG/DL Sodium Level 138 MEQ/L 136 MEQ/L Potassium Level 6.1 MEQ/L 6.7 MEQ/L 6.0 MEQ/L Chloride Level 104 MEQ/L 104 MEQ/L Carbon Dioxide Level 28.4 MEQ/L 30.5 MEQ/L Anion Gap 6 MEQ/L 2 MEQ/L Estimat Glomerular Filtration Rate 69 ML/MIN 67 ML/MIN Imaging Last Impressions Chest X-Ray 05/11/17 0000 Signed Impressions: Service Date/Time: Thursday, May 11, 2017 09:37 - CONCLUSION: 1. Small right pleural effusion. 2. Bilateral mid and lower lung zone predominant air space opacity could represent pulmonary edema given the appearance and distribution. Obdulio Sam MD Abdomen X-Ray 05/10/17 0000 Signed Impressions: Service Date/Time: Wednesday, May 10, 2017 22:08 - CONCLUSION: Tip of Dobbhoff catheter is in the antrum of the stomach. Sage Adler MD Gall Bladder Ultrasound 05/08/17 0000 Signed Impressions: Service Date/Time: May 08:23 - CONCLUSION: Focally unremarkable appearance of the gallbladder Obdulio Chun MD Abdomen/Pelvis CT 05/07/17 0000 Signed Impressions: Service Date/Time: Sunday, May 07, 2017 13:23 - CONCLUSION: 1. Large left pneumothorax. 2. Bilateral lower lobe consolidation and bilateral moderate size pleural effusions. 3. Significant soft tissue thickening of the right lateral chest wall and left gluteus muscle. 4. Mild ascites. The findings were called to Dr. Carney. Deangelo Zamora MD Head CT 05/06/17 0000 Signed Impressions: Service Date/Time: Saturday, May 06, 2017 04:18 - CONCLUSION: 1. Evolving large left-sided MCA territory infarct with minimally improved [id number] subfalcine shift. 2. No intercurrent hemorrhage or other acute abnormality. Alejo De La Vega MD Hip and Pelvis X-Ray 05/05/17 0000 Signed Impressions: Service Date/Time: Friday, May 05, 2017 10:59 - CONCLUSION: Left proximal femur trochanteric/subtrochanteric fracture lucency visualized. Postoperative changes. Choco Mustafa MD Chest CT 04/30/17 0000 Signed Impressions: Service Date/Time: Sunday, April 30, 2017 09:20 - CONCLUSION: 1. Bilateral pulmonary infiltrates more pronounced within the lower lobes with tiny bilateral pleural effusions. Material seen filling the lower lobe bronchi bilaterally either related to purulent material or perhaps mucus plugging. Deangelo Wren Jr., MD Carotid Artery Ultrasound 04/24/17 0000 Signed Impressions: Service Date/Time: April 09:45 - CONCLUSION: 1. No hemodynamically significant carotid artery stenosis. Arnie Middleton MD Hip X-Ray 04/21/17 0000 Signed Impressions: Service Date/Time: Friday, April 21, 2017 11:36 - CONCLUSION: Fluoroscopic images during placement of intramedullary siomara left femur. Benja Ramsey MD Physical Exam GENERAL: Thin built poorly nourished, in no apparent distress. SKIN: No rashes, ecchymoses or lesions. Cool and dry. EYES: Pupils equal round and reactive. Extraocular motions intact. No scleral icterus. No injection or drainage. ENT: NAD NECK: Trach site ok. CARDIOVASCULAR: Regular rate and rhythm without murmurs, gallops, or rubs. RESPIRATORY: Clear to auscultation. Breath sounds decreased R>L GASTROINTESTINAL: Abdomen soft, distended. No tenderness. MUSCULOSKELETAL: Pedal edema. Generalized anasarca. NEUROLOGICAL:. Opens eyes, not tracking, Does not track or follow commands Psych: could not be assessed. IV line sites with no e.o infection. Assessment & Plan Remarks Very MDR PSAE pneumonia (resistant to Avycaz and Zerbaxa and all other Cephalosporins and PCNs etc groups) E.coli and serratia in urine. Likely colonization. Possible mucus plugging. Left MCA infarction s/p neurological deficits. Recs: Continue Colistin nebs. d/w : right side collapse likely due to mucus plugging. I would recommend bronchoscopy if patient daughter agrees. She has refused bronch in past per d.w . I also informed him about very MDR PSAE including Zerbaxa and Avycaz resistance. Colistin IV is very toxic will use only as colistin nebs. No fever WBC minimally elevated within physiological variation. Follow clinically. d/w daughter: this is the first time I have been able to meet her despite attempts in past by phone or trying to arrange a meeting through hospice. I explained to her how I have continued to offer her mother various antibiotics for infections over time but that currently I have not much to offer other than colistin nebs. I explained that bronchoscopy can help reduce the burden of organism but unfortunately I do not have any safe and effective antibiotics to treat her mother with. I explained to her that neurologically she does not track or show meaningful response but she continued to say her mother will walk out of the hospital. At the end of the conversation I let her know I will leave her mom on Colistin nebs and inform batch still operator and of her desire to proceed with bronchoscopy. d/w RN and about very MDR PSAE and also d/w daughter. d/w banking services advisor and infection control: very MDR PSAE. Recommend Bioquell room and strict infection control precautions. d/w Micro lab about MICs for Zerbaxa and per [facility] JEFFREY of 8 is resistant for Zerbaxa. Difficult situation, poor prognosis. Time spent in excess of 40 mins. Critical thinking. covering for me this weekend. Jane Saleh MD Oct 03, 2017 20:02
[2017-10-03] MEDS: LACTOBACILLUS ACIDOPHILUS TAB PEG SCH (20:28)
[2017-10-03] MEDS: DEXTROSE 50% IN WATER 50 ML SYRINGE IV PUSH PRN (21:00)
[2017-10-03] MEDS: SODIUM POLYSTYRENE SULFONATE SUSP 15 GM/60 ML CUP PEG SCH (21:00)
--- NOTE | 2017-10-03 21:06 | RADRPT ---
EXAM DATE/TIME: 10/03/2017 19:54 [facility] COMPARISON: CHEST SINGLE AP, October 02, 2017, 19:02. INDICATIONS : Respiratory failure. MEDICAL HISTORY : None. SURGICAL HISTORY : None. ENCOUNTER: Initial ACUITY: 4 - 6 days PAIN SCORE: Non-responsive. LOCATION: Bilateral chest FINDINGS: Severe diffuse infiltrates are noted bilaterally consistent with severe pulmonary edema or pneumonia. Clinical correlation is recommended. The infiltrates have worsened compared to the previous days exa mination. Tracheostomy tube remains in good position above the valerie. Degenerative changes are noted throughout the thoracic spine. The heart is enlarged. CONCLUSION: Worsening diffuse severe infiltrates consistent with severe pulmonary edema or pneumonia. Correlation is recommended. Enzo Farooq MD on October 03, 2017 at 21:00 Board Certified Radiologist. This report was verified electronically.
[2017-10-03 21:22] LABS: ALBUMIN 2.5 GM/DL (3.4-5.0); AST (GOT) 27 U/L (15-37); BICARBONATE 29.2 MEQ/L (21.0-32.0); BLOOD UREA NITROGEN 58 MG/DL (7-18); CALCIUM 9.1 MG/DL (8.5-10.1); CHLORIDE 106 MEQ/L (98-107); CREATININE 0.69 MG/DL (0.50-1.00); GLOMERULAR FILTRATION RATE 83 ML/MIN (>89); GLUCOSE,RANDOM 61 MG/DL (74-106); MAGNESIUM 2.3 MG/DL (1.5-2.5); SODIUM (NA) 139 MEQ/L (136-145)
[2017-10-03 21:26] LABS: ALKALINE PHOSPHATASE 177 U/L (45-117); ALT (GPT) 36 U/L (10-53); TOTAL BILIRUBIN ADULT 0.2 MG/DL (0.2-1.0); TOTAL PROTEIN 6.7 GM/DL (6.4-8.2)
[2017-10-03] MEDS ORDERED: DEXTROSE 10% INJ 1,000 ML IV SCH (22:45)
[2017-10-03] MEDS ORDERED: FUROSEMIDE 40 MG/4 ML VIAL IV PUSH ONE (22:45)
[2017-10-03] MEDS ORDERED: DEXTROSE 50% IN WATER 50 ML VIAL(D50) IV PUSH ONE (22:45)
[2017-10-03] MEDS: DEXTROSE 10% INJ 500 ML IV SCH (23:00)
--- NOTE | 2017-10-03 23:01 | PD.PROCEDR ---
Procedure Note Procedure Date: 10/02/17 Procedure: Fiberoptic bronchoscopy with bronchoalveolar lavage, diagnostic Indication: Acute hypoxemic respiratory failure with multidrug resistant Pseudomonas pneumonia Details of procedure: Informed consent was obtained from patient's daughter after discussion of risks , benefits, alternatives. The patient was preoxygenated with 100% FiO2 via mechanical ventilation via 8.0 cuffed Shiley trach. The patient was laid partially recumbent. She was sedated with fentanyl 50 mcg IV. I entered the tracheostomy with a flexible bronchoscope. The bronchoscope was advanced into the right middle lobe and Luken trap was attached. The RML was irrigated with 40 ML of saline and there was 15 mL of clear fluid return that was sent to lab for gram stain, culture, sensitivity. The RUL and RLL bronchial subsegments were explored and there were relatively minimal white secretions suctioned from all RLL subsegments. The bronchoscope was rinsed with saline and advanced into lingula. The lingula had some moderatly thick blood tinged secretions that were removed. A new Luken trap was placed. The lingula was irrigated with 40 mL of saline and there was 15 mL of blood tinged return that was sent for Gram stain, culture, sensitivity. There were some moderately thick white secretions suctioned from the left lower lobe that were mild/moderate in terms of quantity. Patient tolerated the procedure well. Sats were 100% percent throughout. Sherita Torres MD Oct 03, 2017 23:01
[2017-10-03] MEDS: METOPROLOL TARTRATE 25 MG TAB PEG SCH (23:48)
[2017-10-04] VITALS (23 sets, daily range): BP systolic 107–168; BP diastolic 55–72; PULSE 59–110; RESP 18–21; TEMP 97.4–99.1; O2SAT 93–100
[2017-10-04] MEDS: DEXTROSE 50% IN WATER 50 ML SYRINGE IV PUSH PRN (01:57)
[2017-10-04] MEDS ORDERED: FUROSEMIDE 40 MG/4 ML VIAL IV PUSH ONE (05:00)
[2017-10-04] MEDS: INSULIN ASPART SUPPLEMENTAL SCALE SQ SCH ×5 (05:46→23:41)
[2017-10-04] MEDS: HEPARIN SODIUM - SQ 10,000 UNITS/ML VIAL SQ SCH ×3 (05:52→23:26)
[2017-10-04] MEDS: hydrALAZINE HCL 10 MG TAB PEG SCH ×3 (05:52→22:30)
[2017-10-04] MEDS: ARTIFICIAL TEARS OPTH SOLN 15 ML BTL EACH EYE SCH ×3 (05:53→22:30)
[2017-10-04 06:10] LABS: AUTOMATED NEUTROPHIL # 7.7 TH/MM3 (1.8-7.7); BASOPHIL # 0.1 TH/MM3 (0-0.2); BASOPHIL % 1.4 % (0.0-2.0); EOSINOPHIL # 0.4 TH/MM3 (0-0.4); EOSINOPHIL % 4.4 % (0.0-4.0); HEMATOCRIT 29.1 % (35.0-46.0); HEMOGLOBIN 9.8 GM/DL (11.6-15.3); LYMPH % 13.6 % (9.0-44.0); LYMPHOCYTE # 1.4 TH/MM3 (1.0-4.8); MEAN CELL VOLUME 97.5 FL (80.0-100.0); MEAN CORPUSCULAR HEMOGLOBIN 32.7 PG (27.0-34.0); MEAN CORPUSCULAR HGB CONC 33.5 % (32.0-36.0); MONO % 5.5 % (0.0-8.0); MONOCYTE # 0.6 TH/MM3 (0-0.9); NEUT % 75.1 % (16.0-70.0); PLATELET COUNT 337 TH/MM3 (150-450); RED BLOOD COUNT 2.99 MIL/MM3 (4.00-5.30); RED CELL DISTRIBUTION WIDTH 15.5 % (11.6-17.2); WHITE BLOOD COUNT 10.2 TH/MM3 (4.0-11.0)
[2017-10-04 06:16] LABS: ALBUMIN 2.4 GM/DL (3.4-5.0); ALKALINE PHOSPHATASE 167 U/L (45-117); ALT (GPT) 32 U/L (10-53); AST (GOT) 29 U/L (15-37); BICARBONATE 27.7 MEQ/L (21.0-32.0); BLOOD UREA NITROGEN 49 MG/DL (7-18); CALCIUM 8.9 MG/DL (8.5-10.1); CHLORIDE 104 MEQ/L (98-107); CREATININE 0.57 MG/DL (0.50-1.00); GLOMERULAR FILTRATION RATE 103 ML/MIN (>89); GLUCOSE,RANDOM 94 MG/DL (74-106); SODIUM (NA) 138 MEQ/L (136-145); TOTAL BILIRUBIN ADULT 0.2 MG/DL (0.2-1.0); TOTAL PROTEIN 6.6 GM/DL (6.4-8.2)
[2017-10-04 07:10] LABS: BANDS 2 % (0-6); BASOPHILS 2 % (0-2); LYMPHOCYTES 4 % (9-44); METAMYELOCYTES 2 % (0-1); MONOCYTES 7 % (0-8); MYELOCYTES 2 % (0-0); NEUTROPHIL # MANUAL DIFF 8.2 TH/MM3 (1.8-7.7); POLYS (SEG NEUTROPHILS) 74 % (16-70)
[2017-10-04] MEDS: CHLORHEXIDINE 0.12% (ORAL KIT) 15 ML CUP MT SCH ×2 (08:00→20:00)
[2017-10-04] MEDS: RESP: COLISTIN 150 MG VIAL NEB SCH ×4 (08:00→22:38)
[2017-10-04] MEDS: CHOLECALCIFEROL (VIT D3) 5000 UNIT CAP PEG SCH (08:44)
[2017-10-04] MEDS: ASPIRIN 325 MG TAB DOBHOFF SCH (08:44)
[2017-10-04] MEDS: CALCIUM/VITAMIN D 250 MG/125 U TAB PEG SCH ×3 (08:44→17:43)
[2017-10-04] MEDS: METOPROLOL TARTRATE 25 MG TAB PEG SCH ×2 (08:44→21:00)
[2017-10-04] MEDS: LACTOBACILLUS ACIDOPHILUS TAB PEG SCH ×2 (08:44→21:00)
[2017-10-04] MEDS: LANSOPRAZOLE SOLUTAB 30 MG TAB NG SCH (08:44)
[2017-10-04] MEDS: SODIUM POLYSTYRENE SULFONATE SUSP 15 GM/60 ML CUP PEG SCH ×2 (08:45→19:54)
[2017-10-04] MEDS: DOXAZOSIN MESYLATE 1 MG TAB PEG SCH (08:45)
[2017-10-04] MEDS: SODIUM CHLORIDE 0.9% FLUSH 5 ML FLUSH IV FLUSH SCH ×2 (08:45→21:00)
--- NOTE | 2017-10-04 09:19 | RADRPT ---
EXAM DATE/TIME: 10/04/2017 08:53 [facility] COMPARISON: CHEST SINGLE AP, October 03, 2017, 19:54. INDICATIONS : Respiratory distress MEDICAL HISTORY : None. SURGICAL HISTORY : None. ENCOUNTER: Subsequent ACUITY: 4 - 6 days PAIN SCORE: Non-responsive. LOCATION: Bilateral chest FINDINGS: A single view of the chest demonstrates bibasilar densities and probable small pleural effusions. Víctor ateral airspace disease has almost completely resolved. Cardiomegaly with slight interstitial promine nce. Tracheostomy tube unchanged. Osseous structures are intact. CONCLUSION: Significant improvement with almost complete resolution of bilateral airspace disease. Benja Ramsey MD on October 04, 2017 at 9:15 Board Certified Radiologist. This report was verified electronically.
--- NOTE | 2017-10-04 10:35 | HHI.IDPN ---
Subjective Subjective Remarks [employer]OVER[employer] is a 76 y/o CF with PMHx of stroke, diabetes mellitus who was admitted with DKA and a hip fracture for which she underwent ORIF on 04/21. While in hospital recovering, patient developed altered mental status. Due to worsening mental status a stroke alert was called. Head CT showed large left MCA territory ischemic infarct with edema. Patient was transferred to the ICU by family medicine service and critical care consult was requested. At the time of evaluation in [facility], patient was opening her eyes however not following commands and had a dense right hemiplegia. Patient was also evaluated by Dr. Malave from neurology. At baseline, the patient lives with her daughter since her stroke in 2014 and does ambulate however has been having problems with memory and incontinence as well as gait difficulties. She does not feel patient would want intubation or tracheostomy or PEG tube. On 05/01/17 patient was intubated for severe hypoxemic respiratory failure from aspiration pneumonia. She also had a temp of 101 F. Blood culture and sputum culture with staph aureus sputum also growing GNR, WBC count 22,000 now indicating worsening sepsis. 05/06/[address] head with massive left MCA infarction and > 1 cm shift in right handed woman. Meanwhile patient is also being treated for C.glabrata UTI. At the time of my evaluation, patient is in [facility] on ventilator. She spontaneously opens eyes, did not follow commands for me. She underwent a CT A/ P which shows a left side pneumothorax. is placing a pigtail chest tube. She has a moser in place but no central line. ID is reconsulted for evaluation and Mment of Right side pneumonia with possible collapse lung, very MDR PSAE. Notes reviewed On the vent S/P bronch yesterday CXR post bronch markedly improved Temps ok WBC normal Bronch C/S pending Antibiotics Colistin nebs Lines Line sites with no e.o infection. Past Medical History reviewed Allergies: Coded Allergies: No Known Allergies (Unverified , 04/20/17) Objective . Vital Signs Date Time Temp Pulse Resp B/P (MAP) Pulse Ox O2 Delivery O2 Flow Rate FiO2 10/04/17 08:00 60 10/04/17 07:40 96 60 10/04/17 07:00 73 10/04/17 06:00 67 10/04/17 05:18 100 70 10/04/17 04:00 98.8 67 18 168/72 (104) 10/04/17 04:00 60 10/04/17 04:00 70 10/04/17 02:00 61 10/04/17 00:38 100 70 10/04/17 00:00 76 10/04/17 00:00 99.1 110 18 127/68 (87) 93 10/04/17 00:00 70 10/03/17 22:30 100 100 10/03/17 22:30 70 10/03/17 22:00 70 10/03/17 21:12 97 T-piece 6.00 98 10/03/17 20:00 99.0 81 18 153/70 (97) 10/03/17 20:00 81 10/03/17 19:00 99 Trach Collar 6.00 10/03/17 16:00 99.1 58 20 115/68 (84) 10/03/17 15:00 50 10/03/17 12:00 99.0 42 16 117/58 (77) . Laboratory Tests Test 10/02/17 20:08 10/03/17 07:32 10/04/17 04:40 White Blood Count 9.6 TH/MM3 12.6 TH/MM3 10.2 TH/MM3 Red Blood Count 2.70 MIL/MM3 2.79 MIL/MM3 2.99 MIL/MM3 Hemoglobin 8.9 GM/DL 9.1 GM/DL 9.8 GM/DL Hematocrit 26.3 % 27.5 % 29.1 % Mean Corpuscular Volume 97.6 FL 98.6 FL 97.5 FL Mean Corpuscular Hemoglobin 32.9 PG 32.5 PG 32.7 PG Mean Corpuscular Hemoglobin Concent 33.7 % 33.0 % 33.5 % Red Cell Distribution Width 15.8 % 15.8 % 15.5 % Platelet Count 279 TH/MM3 311 TH/MM3 337 TH/MM3 Mean Platelet Volume 9.2 FL 8.7 FL 9.0 FL Neutrophils (%) (Auto) 70.2 % 75.1 % Lymphocytes (%) (Auto) 19.6 % 13.6 % Monocytes (%) (Auto) 5.5 % 5.5 % Eosinophils (%) (Auto) 3.8 % 4.4 % Basophils (%) (Auto) 0.9 % 1.4 % Neutrophils # (Auto) 8.8 TH/MM3 7.7 TH/MM3 Lymphocytes # (Auto) 2.5 TH/MM3 1.4 TH/MM3 Monocytes # (Auto) 0.7 TH/MM3 0.6 TH/MM3 Eosinophils # (Auto) 0.5 TH/MM3 0.4 TH/MM3 Basophils # (Auto) 0.1 TH/MM3 0.1 TH/MM3 CBC Comment AUTO DIFF AUTO DIFF Differential Total Cells Counted 100 100 Neutrophils % (Manual) 68 % 74 % Band Neutrophils % 1 % 2 % Lymphocytes % 13 % 4 % Monocytes % 4 % 7 % Eosinophils % 9 % 7 % Basophils % 3 % 2 % Neutrophils # (Manual) 8.9 TH/MM3 8.2 TH/MM3 Metamyelocytes 2 % 2 % Differential Comment FINAL DIFF MANUAL FINAL DIFF MANUAL Platelet Estimate NORMAL NORMAL Platelet Morphology Comment NORMAL NORMAL Red Cell Morphology Comment NORMAL NORMAL Myelocytes 2 % Laboratory Tests Test 10/02/17 20:08 10/03/17 07:32 10/03/17 13:10 10/03/17 20:20 Blood Urea Nitrogen 65 MG/DL 67 MG/DL 58 MG/DL Creatinine 0.81 MG/DL 0.83 MG/DL 0.69 MG/DL Random Glucose 156 MG/DL 132 MG/DL 61 MG/DL Calcium Level 9.6 MG/DL 9.6 MG/DL 9.1 MG/DL Sodium Level 138 MEQ/L 136 MEQ/L 139 MEQ/L Potassium Level 6.1 MEQ/L 6.7 MEQ/L 6.0 MEQ/L 5.6 MEQ/L Chloride Level 104 MEQ/L 104 MEQ/L 106 MEQ/L Carbon Dioxide Level 28.4 MEQ/L 30.5 MEQ/L 29.2 MEQ/L Anion Gap 6 MEQ/L 2 MEQ/L 4 MEQ/L Estimat Glomerular Filtration Rate 69 ML/MIN 67 ML/MIN 83 ML/MIN Total Protein 6.7 GM/DL Albumin 2.5 GM/DL Phosphorus Level 3.0 MG/DL Magnesium Level 2.3 MG/DL Alkaline Phosphatase 177 U/L Aspartate Amino Transf (AST/SGOT) 27 U/L Alanine Aminotransferase (ALT/SGPT) 36 U/L Total Bilirubin 0.2 MG/DL Troponin I 0.03 NG/ML B-Type Natriuretic Peptide 1102 PG/ML Test 10/04/17 04:40 Blood Urea Nitrogen 49 MG/DL Creatinine 0.57 MG/DL Random Glucose 94 MG/DL Total Protein 6.6 GM/DL Albumin 2.4 GM/DL Calcium Level 8.9 MG/DL Alkaline Phosphatase 167 U/L Aspartate Amino Transf (AST/SGOT) 29 U/L Alanine Aminotransferase (ALT/SGPT) 32 U/L Total Bilirubin 0.2 MG/DL Sodium Level 138 MEQ/L Potassium Level 4.4 MEQ/L Chloride Level 104 MEQ/L Carbon Dioxide Level 27.7 MEQ/L Anion Gap 6 MEQ/L Estimat Glomerular Filtration Rate 103 ML/MIN Microbiology Date/Time Source Procedure Growth Status 10/04/17 01:07 Nasal Aspirate Influenza Types A,B Antigen (JEFFREY) - Final NEGATIVE FOR FLU A AND B ANTIGEN.... Complete 10/03/17 23:00 Bronchial Washings Right Mid Lobe Fungal Smear - Final NO FUNGAL ELEMENTS SEEN. Resulted 10/03/17 23:00 Bronchial Washings Right Mid Lobe Fungal Culture Pending Resulted 10/03/17 23:00 Bronchial Washings Other Fungal Smear - Final NO FUNGAL ELEMENTS SEEN. Resulted 10/03/17 23:00 Bronchial Washings Other Fungal Culture Pending Resulted 10/03/17 23:00 Bronchial Washings Right Mid Lobe Gram Stain - Final Resulted 10/03/17 23:00 Bronchial Washings Right Mid Lobe Bronchial Culture Pending Resulted 10/03/17 23:00 Bronchial Washings Other Gram Stain - Final Resulted 10/03/17 23:00 Bronchial Washings Other Bronchial Culture Pending Resulted Imaging Last Impressions Chest X-Ray 05/11/17 0000 Signed Impressions: Service Date/Time: Thursday, May 11, 2017 09:37 - CONCLUSION: 1. Small right pleural effusion. 2. Bilateral mid and lower lung zone predominant air space opacity could represent pulmonary edema given the appearance and distribution. Obdulio Sam MD Abdomen X-Ray 05/10/17 0000 Signed Impressions: Service Date/Time: Wednesday, May 10, 2017 22:08 - CONCLUSION: Tip of Dobbhoff catheter is in the antrum of the stomach. Sage Adler MD Gall Bladder Ultrasound 05/08/17 0000 Signed Impressions: Service Date/Time: May 08:23 - CONCLUSION: Focally unremarkable appearance of the gallbladder Obdulio Chun MD Abdomen/Pelvis CT 05/07/17 0000 Signed Impressions: Service Date/Time: Sunday, May 07, 2017 13:23 - CONCLUSION: 1. Large left pneumothorax. 2. Bilateral lower lobe consolidation and bilateral moderate size pleural effusions. 3. Significant soft tissue thickening of the right lateral chest wall and left gluteus muscle. 4. Mild ascites. The findings were called to Dr. Carney. Deangelo Zamora MD Head CT 05/06/17 0000 Signed Impressions: Service Date/Time: Saturday, May 06, 2017 04:18 - CONCLUSION: 1. Evolving large left-sided MCA territory infarct with minimally improved evhm-[id number] subfalcine shift. 2. No intercurrent hemorrhage or other acute abnormality. Alejo De La Vega MD Hip and Pelvis X-Ray 05/05/17 0000 Signed Impressions: Service Date/Time: Friday, May 05, 2017 10:59 - CONCLUSION: Left proximal femur trochanteric/subtrochanteric fracture lucency visualized. Postoperative changes. Choco Mustafa MD Chest CT 04/30/17 0000 Signed Impressions: Service Date/Time: Sunday, April 30, 2017 09:20 - CONCLUSION: 1. Bilateral pulmonary infiltrates more pronounced within the lower lobes with tiny bilateral pleural effusions. Material seen filling the lower lobe bronchi bilaterally either related to purulent material or perhaps mucus plugging. Deangelo Wren Jr., MD Carotid Artery Ultrasound 04/24/17 0000 Signed Impressions: Service Date/Time: April 09:45 - CONCLUSION: 1. No hemodynamically significant carotid artery stenosis. Arnie Middleton MD Hip X-Ray 04/21/17 0000 Signed Impressions: Service Date/Time: Friday, April 21, 2017 11:36 - CONCLUSION: Fluoroscopic images during placement of intramedullary siomara left femur. Benja Ramsey MD Physical Exam GENERAL: Thin built poorly nourished, NAD, on the vent SKIN: No rashes, ecchymoses or lesions. Cool and dry. EYES: Pupils equal round and reactive. No scleral icterus. No injection or drainage. ENT: No nasal drainage, moist oral mucosa NECK: Trach site ok. CARDIOVASCULAR: Regular rate and rhythm without murmurs, gallops, or rubs. RESPIRATORY: Clear to auscultation. Breath sounds decreased R>L GASTROINTESTINAL: Abdomen soft, mildly distended. No tenderness. MUSCULOSKELETAL: Pedal edema. Generalized anasarca. NEUROLOGICAL:. Opens eyes, not tracking, Does not track or follow commands Psych: could not be assessed. IV line sites with no e.o infection. Assessment & Plan Remarks Very MDR PSAE pneumonia (resistant to Avycaz and Zerbaxa and all other Cephalosporins and PCNs etc groups) E.coli and serratia in urine. Likely colonization. Likely mucus plugging. - S/P bronch - CXR better after bronch Left MCA infarction s/p neurological deficits. Recs: Continue Colistin nebs. Follow C/S MOnitor progress Will not start any new Abx since she looks better post bronch Follow norma D/W Nelly Bland MD Oct 04, 2017 10:35
--- NOTE | 2017-10-04 10:47 | HHI.CCPN ---
Subjective Remarks/Hospital Course 04/24: 76-year-old female with a medical history significant for prior stroke, diabetes mellitus who was admitted with DKA and a hip fracture for which she underwent ORIF on 04/21. Patient developed altered mental status and was last noted to be okay around 5:30 AM. Subsequently there was a change in her mental status and she was noted to not be moving her right side for which stroke alert was called. Head CT showed large left MCA territory ischemic infarct with edema. Patient was transferred to the ICU by family medicine service in the critical care consult was requested. I evaluated the patient following arrival to the ICU. At that time she was laying in bed with her eyes open however not following commands and had a dense right hemiplegia. Patient was also evaluated by Dr. Malave from neurology. [facility] further discussed current event with patient's daughter following her arrival to the ICU. Per the daughter patient has been living with her since her stroke in 2014 and does ambulate however has been having problems with memory and incontinence as well as gait difficulties. She does not feel patient would want intubation or tracheostomy or PEG tube. 04/25: Patient remains encephalopathic, awake though not following commands consistently. Dense right hemiplegia persists. Appears to be awake enough to protect airway currently. Patient's daughter rescinded DNR and made a full code last evening. 04/26: Remains encephalopathic, not following commands. On Dobbhoff for tube feeds at 30 cc per hour. Had urinary retention and drained 2 L of urine after placing Moser catheter today. CT head done this morning with large left MCA territory infarct with left to right midline shift and significant cerebral edema. Hyperglycemia noted. Patient given mannitol earlier for increasing cerebral edema. 04/27: Remains encephalopathic, not following commands. On Dobbhoff tube feeds at 30 cc per hour. When into A. fib with RVR last night which responded with Lopressor 5 mg IV 1 dose. 04/28: Remains encephalopathic, arousable, not following commands. Moves left upper extremity spontaneously. Tolerating Dobbhoff tube feeds. Remains on nasal cannula. 04/29: Encephalopathic, eyes be arousable, moves left upper extremity spontaneously and occasionally opens eyes. Dense right hemiplegia and aphasia persists. On nasal cannula. Dobbhoff tube feeds being advanced. Patient was transfused 1 unit PRBCs yesterday. Urine culture with yeast from yesterday for which fluconazole being started. Had brief run of A. fib with RVR which improved with Lopressor IV, currently in sinus rhythm. 04/30: Worsening hypoxemic respiratory failure, currently on partial nonrebreather. Remains lethargic. WBC count increased from 14.6 today 20.7. Chest x-ray shows bilateral worsening infiltrates and small pleural effusions. Sodium 154, weight up by 8 KG. Albumin 1 mg Bumex 1. Also one dose of albumin. Remains in sinus tachycardia. Tmax 101.3 05/01: Patient was intubated yesterday for lack of airway protection, and severe hypoxemic respiratory failure from aspiration pneumonia involving multiple lobes. Patient is on the vent lethargic, no spontaneous eye opening. Chest x- ray remains unchanged. Remains intermittently febrile Tmax 101.3. WBC count improving 05/02: Remains critically ill with no improvement in mental status. Spiking fever of 101.7. Blood culture and sputum culture with staph aureus sputum also growing GNR, WBC count 22,000 now indicating worsening sepsis. Daughter still requesting aggressive care. Palliative care is following 05/03: S/P large area dominant hemisphere CVA. No neurological improvement. Now with pneumonia (infiltrate, fever, leukocytosis) and appropriate abx coverage. She will have a hard time surviving the hip fx, CVA, and pneumonia. Palliative Care needs to be a mainstay of our plan. 05/04: No improvement in neuro status. Sputum C&S allows us to narrow abx coverage to levaquin alone. Lungs remain quite congested. Enteral nutrition tolerated. 05/05: No improvement in neuro status. Moves left arm spontaneously. Flaccid right side. Unresponsive. Persistent mild hypoglycemia - will cut Levemir 50%. Abdomen more distended, check KUB. 05/06: CT head with massive left MCA infarction and > 1 cm shift in right handed woman. She opens eyes, does not track. 05/07: Patient open eyes. Attempts to respond. Macedonian speaking. Tolerating tube feeds. Positive bowel movement. Volume overloaded. 05/08: Tmax 99.4. Potassium being replaced. Ultrasound gallbladder currently pending. Transaminases are trending downward. Gently diurese. 05/09: Alk phos decreasing. Remains with good urine output. Neurological status not improving. 05/10: Fixed neuro deficit unchanged. Profound CVA. 05/11: Appears to track with eyes today. No improvement in motor function. Remains very edematous, diuretics doubled. 05/12: Continued thick secretions. Afebrile, leukocytosis resolved. 05/13: CT head with completed left MCA stroke, persistent edema and 5 mm shift away. Does not last long on SBTs - major decision now is trach/PEG. 05/14: Daughter has decided to proceed with trach and PEG. I have been pessimistic with her about chances for a meaningful recovery. 05/15: Plan for trach today. No change in neuro status. Still ventilator dependent. 05/16: Trach completed. Await PEG and disposition. 05/17: PEG placed 05/16. Start TFs today after nutrition consult. Work to place patient. 05/18: No improvement. Does open eyes, no focus or tracking. Completed large dominant (left) hemisphere CVA in right handed woman with severe deficit. Medicaid pending status, [facility] is following. 05/19: no improvements in neuro exam. ready for LTAC. will d/c moser and rectal tubes. 05/20: no changes or improvements. very difficult placement due to patient not [place] citizen. 05/21: no improvements. resting on vent overnight due to distress. 05/22: no neurologic changes. no improvements. attempted T-piece which failed after 10 minutes. 05/23: no improvements. poor prognosis. poor neuro exam. still failing weaning trials. 05/24: no improvements or changes. still failing t-piece trials. 05/25: No acute changes of improvement overnight. Failed CPAP due to apnea, tried again currently tolerating. Neurological exam unchanged. 05/26: No improvement in neurological function. 05/27: Patient has required Moser catheter because of breakdown of skin on upper thighs and groin. Urine has become infected, will treat. 05/28: Some drainage from around trach (placed 2 weeks ago). Will change out trach tube and inspect neck wound. I&O straight cath q6h order entered 05/17. 05/29: No improvement, remains obtunded. Failed CPAP trials yesterday and again today due to apnea. Moser placed due to persistent urinary retention 05/30: Obtunded, unresponsive. Failed SBTs, remains ventilator dependent. 05/31: Patient continues to fail SBT failed yesterday due to apnea. Neuro exam remains unchanged. 06/01: No acute changes overnight, 06/02: no changes. ekg done overnight for ? EKG changes seen on telemetry which were not visualized on EKG. 06/03: no improvements or changes. had long conversation with daughter yesterday. only facility which would accept patient is in [place] and daughter is refusing to allow patient to go there because it is "too far away." Daughter continues to push for aggressive care despite no improvements, and resistant to Hospice. Patient does not need acute inpatient therapy but lacks funding for appropriate disposition. 06/04: No acute events overnight, failed SBT due to apnea. 06/05: No acute events, continues to fail spontaneous breathing trials. Unable to wean 06/06 Currently tolerating CPAP. Will attempt TP today up to 4 hours. No acute events overnight 06/07: Tolerating trach collar/T-piece. Transfer soon. 06/08: Awaiting transfer. 06/09: Remains ventilator dependent. No improvement in neurological function. 06/10: No improvement. Daughter is not attending preplanned meetings to discuss disposition 06/12: Afebrile. Neurologically stable and unchanged. Noted sodium 135. Adding sodium chloride tablets 1 today. Not on free water.. Tolerating tube feeds at goal 45 cc an hour. 06/13: No improvement in neurological function. 06/14: No improvement. Fluid balance correct. Gas exchange acceptable. 06/15: No improvement. Obtunded and unresponsive. 06/16: no improvements in mental status. KUB overnight with dilated small bowel loops. given methylnaltrexone and erythromycin. today abdomen is soft and tolerating tube feeds. 06/17: tolerated t-piece x 6 hours yesterday. rested on cpap overnight. no changes in encephalopathy. 06/18: Currently on ventilator overnight. Multiple bowel movements. Thick yellow secretions noted in ventilator circuit. Opens eyes. 06/19: Afebrile. Tolerating stretcher chair yesterday on PSV. Tolerating tube feeding. Neurologically unchanged. 06/20: Afebrile. Resting in bed in no acute distress in sitting position. Currently on ventilator set sitting. Tolerated stretcher chair/PSV trial 6 hours yesterday. Neurologically unchanged. 06/21: Tmax 100.8. Patient with copious thick yellow secretions. Tolerating tube feeds. Positive bowel movement. Lasted only 1 hour PSV yesterday 06/22: Tmax 99.9. Continues to have thick secretions. Tolerating tube feeding. Positive BM. 06/23: Afebrile. Continues to have thick tracheal secretions from tracheostomy site. Tolerating tube feeding. 3 bowels movements. Opens eyes to stimulation. Stares at you but does not follow commands. 06/24: Remains encephalopathic, on mechanical ventilation via tracheostomy. Tolerating PEG feeds 06/25: Remains encephalopathic on mechanical ventilation. Tolerated C Pap +5 with pressure support +10 all day yesterday. Tolerating PEG feeds. 06/26: No improvement.Vent dependent still. 06/27: Remains encephalopathic, on mech vent via trach. Daily CPAP trials. 06/28: Unable to wean from ventilator. 06/29: Neurologically unchanged. Remains on mechanical ventilation. Daily C Pap trials ongoing. 06/30: Remains encephalopathic. On C Pap overnight. Tolerating tube feeds. 07/01: No change in neurologic status. On mechanical ventilation via tracheostomy. Tolerating tube feeds. 07/02: Remains encephalopathic. No change in neurologic status. On mechanical ventilation via tracheostomy. Daily C Pap trials ongoing. 07/03: Occasional spontaneous eye opening however remains encephalopathic. On mechanical ventilation via tracheostomy. 07/04: Tmax 99.2. Multiple bowel movements overnight. Tolerating tube feeds. On T piece trial at 5 L since noon yesterday. Otherwise neurologically unchanged. Daughter encouraged by movement of left leg. 07/05: Currently resting in bed on T piece 36 hours. Tolerates chair. No changes neurologically. Positive BM's. Tolerating her tube feeding. 07/06: Continue T-piece trials, if tolerated consider transfer to floor. 07/07: Extended T-piece trial. Plan transfer to floor. 07/09: Patient is experiencing apnea episodes and had to be placed back on higher FiO2.. Hold transfer. 07/10: X-ray left hip shows good anatomic alignment. Still requiring elevated FiO2. 07/11: Prealbumin 20, nutritional support is adequate and status is stable. No neurological improvement. 07/12: No improvement in neurological function. Continued acceptable respiratory effort. 07/13: No change. Subjective 10/03/17 Dr. Rizo notified broadcast producer that patient would be transferring to ICU. Patient is known to [facility] service. She was originally admitted 04/20/17 after a fall with hip fracture resulting in ORIF 04/21. Postoperatively, she developed large R MCA stroke with midline shift. Her neurologic condition remained poor and she underwent trach 05/15/17 and PEG 05/16/17. She was eventually transitioned to Tpiece and transferred to floor. She has suffered from multiple infectious complications due to her persistent bedfast and trach dependent state. 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 She has been on trach collar with worsening hypoxemia therefore she is transferred to [facility] [place]. CXR from yesterday demonstrates bilateral pulmonary infiltrates. She has also had hyperkalemia today up to 6.7 which has been treated with kayexalate, down to 6. 2/3: improvement in air space disease with diuresis and bronch yesterday. no overall improvements in chronic poor prognosis. unlikely to survive this hospital stay. daughter has poor insight into the gravity of her mother's medical condition. she will not recover meaningfully. Objective Vital Signs Date Time Temp Pulse Resp B/P (MAP) Pulse Ox O2 Delivery O2 Flow Rate FiO2 10/04/17 08:00 60 10/04/17 07:40 96 10/04/17 07:00 73 10/04/17 04:00 98.8 18 168/72 (104) 10/03/17 21:12 T-piece 6.00 Intake and Output 10/04/17 10/04/17 10/04/17 07:59 15:59 23:59 Intake Total 425 ml Output Total 250 ml Balance 175 ml Result Diagram: 10/04/17 0440 10/04/17 0440 Other Results Microbiology Date/Time Source Procedure Growth Status 10/04/17 01:07 Nasal Aspirate Influenza Types A,B Antigen (JEFFREY) - Final NEGATIVE FOR FLU A AND B ANTIGEN.... Complete Laboratory Tests Test 10/03/17 21:03 10/03/17 23:27 Blood Gas Puncture Site RT RADIAL RT RADIAL Blood Gas Patient Temperature 98.6 98.6 Blood Gas HCO3 26 mmol/L (22-26) 27 mmol/L (22-26) Blood Gas Base Excess 1.6 mmol/L (-2-2) 2.6 mmol/L (-2-2) Blood Gas Oxygen Saturation 96 % (90-100) 98 % (90-100) Arterial Blood pH 7.42 (7.380-7.420) 7.38 (7.380-7.420) Arterial Blood Partial Pressure CO2 40 mmHg (38-42) 47 mmHg (38-42) Arterial Blood Partial Pressure O2 116 mmHg (61-120) 450 mmHg (61-120) Arterial Blood Oxygen Content 11.5 Vol % (12.0-20.0) 12.6 Vol % (12.0-20.0) Arterial Blood Carboxyhemoglobin 1.1 % (0-4) 1.0 % (0-4) Arterial Blood Methemoglobin 1.1 % (0-2) 1.1 % (0-2) Blood Gas Hemoglobin 8.3 G/DL (12.0-16.0) 8.3 G/DL (12.0-16.0) Oxygen Delivery Device T-TUBE VENTILATOR Blood Gas Inspired Oxygen 98 % 100 % Blood Gas Ventilator Setting PRVC/AC Imaging Last Impressions Chest X-Ray 06/24/17 0600 Signed Impressions: Service Date/Time: Saturday, June 24, 2017 06:00 - CONCLUSION: Bilateral patchy infiltrates slightly worsened. Benja Ramsey MD Liver Ultrasound 06/19/17 0000 Signed Impressions: Service Date/Time: June 13:20 - CONCLUSION: 1. Mildly increased echotexture of the liver characteristic of hepatic steatosis. 2. Gallbladder sludge. Obdulio Sam MD Abdomen X-Ray 06/16/17 0000 Signed Impressions: Service Date/Time: Friday, June 16, 2017 04:48 - CONCLUSION: 1. Continued small bowel ileus. There has been no significant change when compared to the prior exam. Toy Duran MD Head CT 05/15/17 0000 Signed Impressions: Service Date/Time: May 19:59 - CONCLUSION: 1. 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 2. No bleed or new/acute infarct. Obdulio Simms MD Gall Bladder Ultrasound 05/08/17 0000 Signed Impressions: Service Date/Time: May 08:23 - CONCLUSION: Focally unremarkable appearance of the gallbladder Obdulio Chun MD Abdomen/Pelvis CT 05/07/17 0000 Signed Impressions: Service Date/Time: Sunday, May 07, 2017 13:23 - CONCLUSION: 1. Large left pneumothorax. 2. Bilateral lower lobe consolidation and bilateral moderate size pleural effusions. 3. Significant soft tissue thickening of the right lateral chest wall and left gluteus muscle. 4. Mild ascites. The findings were called to Dr. Carney. Deangelo Zamora MD Hip and Pelvis X-Ray 05/05/17 0000 Signed Impressions: Service Date/Time: Friday, May 05, 2017 10:59 - CONCLUSION: Left proximal femur trochanteric/subtrochanteric fracture lucency visualized. Postoperative changes. Choco Mustafa MD Chest CT 04/30/17 0000 Signed Impressions: Service Date/Time: Sunday, April 30, 2017 09:20 - CONCLUSION: 1. Bilateral pulmonary infiltrates more pronounced within the lower lobes with tiny bilateral pleural effusions. Material seen filling the lower lobe bronchi bilaterally either related to purulent material or perhaps mucus plugging. Deangelo Wren Jr., MD Carotid Artery Ultrasound 04/24/17 0000 Signed Impressions: Service Date/Time: April 09:45 - CONCLUSION: 1. No hemodynamically significant carotid artery stenosis. Arnie Middleton MD Hip X-Ray 04/21/17 0000 Signed Impressions: Service Date/Time: Friday, April 21, 2017 11:36 - CONCLUSION: Fluoroscopic images during placement of intramedullary siomara left femur. Benja Ramsey MD Objective Remarks GENERAL: Elderly female who is laying in [facility] [place] [facility] bed on trach collar SKIN: Warm and dry, adequately perfused. HEAD: Atraumatic. Normocephalic. mucous membranes moist. NECK: 8.[address] Trachea midline. No JVD. CARDIOVASCULAR: Regular rate and rhythm, sinus on the monitor. RESPIRATORY: Tachypneic without accessory muscle use. GASTROINTESTINAL: Abdomen soft, non-tender, nondistended. PEG in place with tube feeds running, site benign appearing. MUSCULOSKELETAL: Extremities without clubbing, cyanosis, or edema. No obvious deformities. NEUROLOGICAL: Eyes open spontaneously, does not appear to track. L gaze preference. R hemiparesis. Localizes with LUE. Very slight withdrawal of LLE to noxious stimuli. Procedures echo 04/24/2017 The left ventricular systolic function is low normal with an estimated ejection fraction in the range of 50- 55%. Mild concentric left ventricular hypertrophy. Normal left ventricular size. [id number] mitral valve regurgitation. A/P Assessment and Plan assessment: 77yF with massive left MCA CVA without any meaningful neurologic improvements in many months. now with very MDR pseudomonas and associated hypoxic respiratory failure. poor prognosis and unlikely to survive this hospitalization. daughter has very poor insight into her mother's poor condition , despite many conversations over the last few months. insists on aggressive care and insists that her mother will improve and will be taken home successfully one day. All I can offer at this point is ongoing diuresis for volume overload and the medical therapy for her pseudomonas. nothing else medically to offer. critically ill and unlikely to survive. Neuro/Psych: Left MCA CVA - 5.5 mm of [id number] subfalcine herniation, diagnosed 04/24. Persistent right-sided hemiparesis. Prior History of stroke Continue Aspirin 325 mg by tube daily. Stroke occurred 04/24/17. Patient was not a candidate for thrombolysis per discussion with neurology and radiology at that time. Repeat head CT 05/15 showed slight improvement in the midline shift now 5.5 mm and mass effect Neurosurgery consulted 04/30- Dr. López, recommended conservative management, now signed off. Neurology Dr. Malave has followed previously, signed off. Cardiovascular: Hypertension Norvasc 10 mg po daily, cardura 1 mg peg daily, metoprolol 12.5 peg bid, hydralazine 10 mg per per peg q8 hours. clonidine prn SBP >160 Echocardiogram 04/24/17 - EF 50 to 55%. Mild concentric LVH. trace to mild MVR ASA 325 for stroke as per above BNP elevated. continue forced diuresis. Pulmonary: Chronic Tracheostomy Now recurrent Acute hypoxemic respiratory failure Acute hypoxic respiratory failure - aspiration possible HCAP - previous episode resolved. Large left pneumothorax status post #10 Slovak chest tube 05/07 - resolved.Chest tube d/c'd 05/12/17 R pleural effusion - She previously underwent CT guided R thoracentesis in IR with removal of 1450 clear yellow fluid, pleural fluid studies not sent. Chronic respiratory failure, currently on Tpiece Obtained ABG and initially satisfactory on Tpiece: PH 7.42/PaCO2 40/PA O2 116/ bicarbonate 25.6. Respiratory condition declined, subsequently placed on PRVC TV 450 R 18 IT 1 PEEP 8 via 8 cuffed Shiley. ID recommending bronchoscopy. Daughter had previously refused but now is amenable to bronchoscopy. Proceeded with bronchoscopy after placing on vent. Performed BAL from RML and lingula per Dr. Ranjan Saleh request. Ipratropium/albuterol aerosols every 6 hours with albuterol aerosols every 2 hours GI/liver: Elevated transaminases, resolved Severe protein calorie malnutrition Small bowel ileus- resolved Hepatitis C antibody positive with negative genotype/viral load Hepatic steatosis Currently on PEG tube feeding with Glucerna 1.5 goal 45 cc an hour. Beneprotein tid. Lansoprazole 30 mg daily for GI regimen Docusate sodium 100 mg twice a day for bowel regimen can be held while on kayexalate. Previous CT abdomen/pelvis 05/07 - mild ascites. Large left pneumothorax. Right greater than left pleural effusion. liver ultrasound 06/19 revealed hepatic steatosis and gallbladder sludge Endocrine: Diabetes mellitus NPH 10 units subcut tid, received dose ~1900 on 10/03. Will hold. D10 @ 30/hr. SSI low-dose every 6 hours Holding glimepiride 4 mg by mouth daily /Renal/FEN: Hyperkalemia Hyponatremia, resolved Acute intravascular volume overload Discontinue 0.9 NaCl @ 100 ml/hr. D10 @ 30/hr as dextrose source. Periwick catheter in place lasix 40mg iv q6h for volume overload. Stopping bactrim which can contribute to hyperkalemia. Discussed with ID. Continue kayexalate 15 gram po bid, trend potassium. Moser catheter previously placed for urinary retention on 04/26. Moser removed with q6h straight cath. Heme: Chronic Rivaroxaban use prior to admission Leukocytosis Normocytic anemia Thrombocytosis Follow CBC and coags. On subcutaneous enoxaparin 40 mg daily subcutaneous ID: MDR Pseudomonas aeruginosa and pneumonia (HCAP) MSSA bacteremia - resolved. Serratia/staph aureus pneumonia - resolved. C glabrata UTI - resolved. Citrobacter UTI - resolved. Serratia/MSSA sputum VAP resolved Current relevant cultures: 09/25/17 -sputum culture - Pseudomonas aeruginosa, multidrug resistant ( including Zerbaxa and Avycaz resistance). On Colestin nebs started 09/30 #4. Per ID, Dr. Ranjan Saleh On levaquin 500 mg IV daily 10/03, being discontinued per ID On Bactrim 800/160 bid which is being discontinued per d/w ID. Continue Lactinex bid. Prior cultures: Urine culture 04/26/17 sofie glabrata Blood culture 04/29/17 1 out of 4 bottles staph aureus Sputum culture 04/30/17 MSSA and Serratia. urine 05/07-> Serratia, treated. Urine 05/25: Citrobacter MSK: Left Intertroch Hip Fx s/p IMN 04/21/17. Vitamin D deficiency Sacral decubitus ulcer, Previously stage III, healing. Continue calcium vitamin D 250/125 one tablet 3x a day and cholecalciferol 5000 units daily. PT/OT evaluate and treat Maxsorb every 3 days/dressing changes every 3 days per wound care Continue bene protein one packet 3x a day Prophylaxis: SCDs. Heparin 5000 subcut q8 hours. GI - lansoprazole 30 mg by PEG tube daily ACCESS: PIV. FULL CODE Anuj Heaton MD Oct 04, 2017 10:47
[2017-10-04] MEDS: FUROSEMIDE 40 MG/4 ML VIAL IV PUSH SCH ×3 (12:04→22:31)
[2017-10-04] MEDS: DEXTROSE 10% INJ 500 ML IV SCH (15:49)
[2017-10-04] MEDS: RESP: ALBUTEROL 2.5 MG/IPRATROPIUM 0.5 MG NEB (PRN) NEB (22:37)
[2017-10-05] VITALS (18 sets, daily range): BP systolic 97–148; BP diastolic 56–70; PULSE 54–74; RESP 18–20; TEMP 97.9–99.3; O2SAT 94–100
[2017-10-05] MEDS: INSULIN ASPART SUPPLEMENTAL SCALE SQ SCH ×3 (06:00→17:22)
[2017-10-05] MEDS: HEPARIN SODIUM - SQ 10,000 UNITS/ML VIAL SQ SCH ×3 (06:09→21:16)
[2017-10-05] MEDS: hydrALAZINE HCL 10 MG TAB PEG SCH ×3 (06:09→21:15)
[2017-10-05] MEDS: FUROSEMIDE 40 MG/4 ML VIAL IV PUSH SCH ×3 (06:09→17:05)
[2017-10-05] MEDS: ARTIFICIAL TEARS OPTH SOLN 15 ML BTL EACH EYE SCH ×3 (06:10→21:15)
[2017-10-05] MEDS: RESP: COLISTIN 150 MG VIAL NEB SCH ×3 (08:00→21:41)
[2017-10-05] MEDS: LANSOPRAZOLE SOLUTAB 30 MG TAB NG SCH (08:51)
[2017-10-05] MEDS: DOXAZOSIN MESYLATE 1 MG TAB PEG SCH (08:51)
[2017-10-05] MEDS: CALCIUM/VITAMIN D 250 MG/125 U TAB PEG SCH ×3 (08:51→17:05)
[2017-10-05] MEDS: CHOLECALCIFEROL (VIT D3) 5000 UNIT CAP PEG SCH (08:51)
[2017-10-05] MEDS: LACTOBACILLUS ACIDOPHILUS TAB PEG SCH ×2 (08:51→21:15)
[2017-10-05] MEDS: ASPIRIN 325 MG TAB DOBHOFF SCH (08:51)
[2017-10-05] MEDS: SODIUM CHLORIDE 0.9% FLUSH 5 ML FLUSH IV FLUSH SCH ×2 (08:52→21:00)
[2017-10-05] MEDS: METOPROLOL TARTRATE 25 MG TAB PEG SCH ×2 (08:52→21:00)
[2017-10-05] MEDS: SODIUM POLYSTYRENE SULFONATE SUSP 15 GM/60 ML CUP PEG SCH (08:52)
[2017-10-05] MEDS: CHLORHEXIDINE 0.12% (ORAL KIT) 15 ML CUP MT SCH ×2 (08:53→21:15)
--- NOTE | 2017-10-05 08:54 | HHI.IDPN ---
Subjective Subjective Remarks ID COVERAGE is a 76 y/o CF with PMHx of stroke, diabetes mellitus who was admitted with DKA and a hip fracture for which she underwent ORIF on 04/21. While in hospital recovering, patient developed altered mental status. Due to worsening mental status a stroke alert was called. Head CT showed large left MCA territory ischemic infarct with edema. Patient was transferred to the ICU by family medicine service and critical care consult was requested. At the time of evaluation in [facility], patient was opening her eyes however not following commands and had a dense right hemiplegia. Patient was also evaluated by Dr. Malave from neurology. At baseline, the patient lives with her daughter since her stroke in 2014 and does ambulate however has been having problems with memory and incontinence as well as gait difficulties. She does not feel patient would want intubation or tracheostomy or PEG tube. On 05/01/17 patient was intubated for severe hypoxemic respiratory failure from aspiration pneumonia. She also had a temp of 101 F. Blood culture and sputum culture with staph aureus sputum also growing GNR, WBC count 22,000 now indicating worsening sepsis. 05/06/[address] head with massive left MCA infarction and > 1 cm shift in right handed woman. Meanwhile patient is also being treated for C.glabrata UTI. At the time of my evaluation, patient is in [facility] on ventilator. She spontaneously opens eyes, did not follow commands for me. She underwent a CT A/ P which shows a left side pneumothorax. is placing a pigtail chest tube. She has a moser in place but no central line. ID is reconsulted for evaluation and Mment of Right side pneumonia with possible collapse lung, very MDR PSAE. Notes reviewed D/W RN On the vent S/P bronch 2/2 CXR post bronch markedly improved Temps ok WBC normal Bronch C/S GNR Antibiotics Current Medications Colistin nebs Medications (Trade) Dose Ordered Sig/Zeferino Route Start Time Stop Time Status Last Admin (Narcan Inj) 0.4 mg UNSCH PRN IV 04/20/17 17:15 (NS Flush) 2 ml BID IV FLUSH 04/24/17 21:00 10/04/17 21:00 (NS Flush) 2 ml UNSCH PRN IV FLUSH 04/24/17 09:30 09/17/17 08:48 (Aspirin) 325 mg DAILY DOBHOFF 04/27/17 09:00 10/04/17 08:44 (Prevacid Odt) 30 mg DAILY NG 05/08/17 09:00 10/04/17 08:44 (Glucagon Inj) 1 mg UNSCH PRN OTHER 05/21/17 13:15 (D50w (Syr) Inj) 50 ml UNSCH PRN IV PUSH 05/22/17 17:15 10/04/17 01:57 (Tears Naturale Opth Soln) 1 drop Q8HR EACH EYE 06/12/17 07:15 10/05/17 06:10 (Nitroglycerin 2% Oint) 2 inch Q6H PRN TOPICAL 06/21/17 08:00 06/30/17 14:37 (Heparin Inj) 5,000 units Q8HR SQ 07/15/17 08:00 10/05/17 06:09 (NovoLOG SUPPLEMENTAL SCALE) 1 Q6HR SQ 07/21/17 18:00 10/05/17 06:00 (Duoneb Neb) 1 ampule Q6HR NEB PRN NEB 08/10/17 14:00 10/04/17 22:37 (Pill Splitter) 1 ea UNSCH PRN OTHER 09/05/17 11:00 (Tylenol) 500 mg Q6H PRN PEG 09/16/17 16:15 09/16/17 16:36 (Apresoline) 10 mg Q8HR PEG 09/24/17 14:00 10/05/17 06:09 (Coly-Mycin M Neb) 75 mg Q8HR NEB NEB 09/30/17 16:00 10/04/17 22:38 (NovoLIN N INJ) 10 units TID SQ 10/02/17 09:00 Future Hold 10/03/17 18:43 (Norvasc) 10 mg DAILY PEG 10/04/17 09:00 10/04/17 08:45 (Oscal-D 250-125) 250 mg TID PEG 10/03/17 13:00 10/04/17 17:43 (Vitamin D3) 5,000 units DAILY PEG 10/04/17 09:00 10/04/17 08:44 (Catapres) 0.1 mg Q6H PRN PEG 10/03/17 12:30 (Cardura) 1 mg DAILY PEG 10/04/17 09:00 10/04/17 08:45 (Lactinex) 1 tab Q12HR PEG 10/03/17 21:00 10/04/17 21:00 (Lopressor) 12.5 mg Q12HR PEG 10/03/17 21:00 10/04/17 21:00 (Kayexalate Liq) 15 gm BID PEG 10/03/17 21:00 10/03/17 21:00 (Miralax) 17 gm DAILY PRN PEG 10/03/17 12:00 (Beneprotein Powder) 1 pack TID PRN G-TUBE 10/03/17 12:00 (Albuterol Neb) 2.5 mg Q2HR NEB PRN NEB 10/03/17 21:45 Dextrose 500 ml @ 10 mls/hr Q24H IV 10/03/17 23:00 10/04/17 15:49 (fentaNYL INJ) 50 mcg Q1H PRN IV PUSH 10/03/17 23:00 (Peridex 0.12% Liq) 15 ml BID@08,20 MT 10/04/17 08:00 10/04/17 20:00 (Lasix Inj) 40 mg Q6HR IV PUSH 10/04/17 12:00 10/05/17 06:09 Lines Line sites with no e.o infection. Past Medical History reviewed Allergies: Coded Allergies: No Known Allergies (Unverified , 04/20/17) Objective . Vital Signs Date Time Temp Pulse Resp B/P (MAP) Pulse Ox O2 Delivery O2 Flow Rate FiO2 10/05/17 07:27 100 35 10/05/17 06:00 70 10/05/17 04:00 98.4 64 18 116/56 (76) 100 10/05/17 04:00 64 10/05/17 04:00 100 40 10/05/17 04:00 40 10/05/17 02:00 59 10/05/17 01:00 100 40 10/05/17 00:00 97.9 70 18 122/59 (80) 100 10/05/17 00:00 70 10/05/17 00:00 40 10/04/17 22:08 100 40 10/04/17 22:00 60 10/04/17 20:00 97.4 68 18 107/55 (72) 100 10/04/17 20:00 61 10/04/17 20:00 40 10/04/17 19:19 99 40 10/04/17 19:00 73 10/04/17 17:00 70 10/04/17 16:04 100 40 10/04/17 16:00 50 10/04/17 16:00 98.1 70 18 129/62 (84) 100 10/04/17 15:00 70 10/04/17 13:00 64 10/04/17 12:00 50 10/04/17 12:00 98.6 59 18 122/58 (79) 100 10/04/17 11:42 100 50 10/04/17 11:00 69 10/04/17 09:00 78 . Laboratory Tests Test 10/04/17 04:40 White Blood Count 10.2 TH/MM3 Red Blood Count 2.99 MIL/MM3 Hemoglobin 9.8 GM/DL Hematocrit 29.1 % Mean Corpuscular Volume 97.5 FL Mean Corpuscular Hemoglobin 32.7 PG Mean Corpuscular Hemoglobin Concent 33.5 % Red Cell Distribution Width 15.5 % Platelet Count 337 TH/MM3 Mean Platelet Volume 9.0 FL Neutrophils (%) (Auto) 75.1 % Lymphocytes (%) (Auto) 13.6 % Monocytes (%) (Auto) 5.5 % Eosinophils (%) (Auto) 4.4 % Basophils (%) (Auto) 1.4 % Neutrophils # (Auto) 7.7 TH/MM3 Lymphocytes # (Auto) 1.4 TH/MM3 Monocytes # (Auto) 0.6 TH/MM3 Eosinophils # (Auto) 0.4 TH/MM3 Basophils # (Auto) 0.1 TH/MM3 CBC Comment AUTO DIFF Differential Total Cells Counted 100 Neutrophils % (Manual) 74 % Band Neutrophils % 2 % Lymphocytes % 4 % Monocytes % 7 % Eosinophils % 7 % Basophils % 2 % Neutrophils # (Manual) 8.2 TH/MM3 Metamyelocytes 2 % Myelocytes 2 % Differential Comment FINAL DIFF MANUAL Platelet Estimate NORMAL Platelet Morphology Comment NORMAL Red Cell Morphology Comment NORMAL Laboratory Tests Test 10/03/17 13:10 10/03/17 20:20 10/04/17 04:40 Potassium Level 6.0 MEQ/L 5.6 MEQ/L 4.4 MEQ/L Blood Urea Nitrogen 58 MG/DL 49 MG/DL Creatinine 0.69 MG/DL 0.57 MG/DL Random Glucose 61 MG/DL 94 MG/DL Total Protein 6.7 GM/DL 6.6 GM/DL Albumin 2.5 GM/DL 2.4 GM/DL Calcium Level 9.1 MG/DL 8.9 MG/DL Phosphorus Level 3.0 MG/DL Magnesium Level 2.3 MG/DL Alkaline Phosphatase 177 U/L 167 U/L Aspartate Amino Transf (AST/SGOT) 27 U/L 29 U/L Alanine Aminotransferase (ALT/SGPT) 36 U/L 32 U/L Total Bilirubin 0.2 MG/DL 0.2 MG/DL Sodium Level 139 MEQ/L 138 MEQ/L Chloride Level 106 MEQ/L 104 MEQ/L Carbon Dioxide Level 29.2 MEQ/L 27.7 MEQ/L Anion Gap 4 MEQ/L 6 MEQ/L Estimat Glomerular Filtration Rate 83 ML/MIN 103 ML/MIN Troponin I 0.03 NG/ML B-Type Natriuretic Peptide 1102 PG/ML Microbiology Date/Time Source Procedure Growth Status 10/04/17 01:07 Nasal Aspirate Influenza Types A,B Antigen (JEFFREY) - Final NEGATIVE FOR FLU A AND B ANTIGEN.... Complete 10/03/17 23:00 Bronchial Washings Right Mid Lobe Fungal Smear - Final NO FUNGAL ELEMENTS SEEN. Resulted 10/03/17 23:00 Bronchial Washings Right Mid Lobe Fungal Culture Pending Resulted 10/03/17 23:00 Bronchial Washings Other Fungal Smear - Final NO FUNGAL ELEMENTS SEEN. Resulted 10/03/17 23:00 Bronchial Washings Other Fungal Culture Pending Resulted 10/03/17 23:00 Bronchial Washings Right Mid Lobe Gram Stain - Final Resulted 10/03/17 23:00 Bronchial Culture - Preliminary Gram Negative Juan Resulted 10/03/17 23:00 Bronchial Washings Other Gram Stain - Final Resulted 10/03/17 23:00 Bronchial Culture - Preliminary Gram Negative Juan Resulted Imaging Last Impressions Chest X-Ray 05/11/17 0000 Signed Impressions: Service Date/Time: Thursday, May 11, 2017 09:37 - CONCLUSION: 1. Small right pleural effusion. 2. Bilateral mid and lower lung zone predominant air space opacity could represent pulmonary edema given the appearance and distribution. Obdulio Sam MD Abdomen X-Ray 05/10/17 0000 Signed Impressions: Service Date/Time: Wednesday, May 10, 2017 22:08 - CONCLUSION: Tip of Dobbhoff catheter is in the antrum of the stomach. Sage Adler MD Gall Bladder Ultrasound 05/08/17 0000 Signed Impressions: Service Date/Time: May 08:23 - CONCLUSION: Focally unremarkable appearance of the gallbladder Obdulio Chun MD Abdomen/Pelvis CT 05/07/17 0000 Signed Impressions: Service Date/Time: Sunday, May 07, 2017 13:23 - CONCLUSION: 1. Large left pneumothorax. 2. Bilateral lower lobe consolidation and bilateral moderate size pleural effusions. 3. Significant soft tissue thickening of the right lateral chest wall and left gluteus muscle. 4. Mild ascites. The findings were called to Dr. Carney. Deangelo Zamora MD Head CT 05/06/17 0000 Signed Impressions: Service Date/Time: Saturday, May 06, 2017 04:18 - CONCLUSION: 1. Evolving large left-sided MCA territory infarct with minimally improved [id number] subfalcine shift. 2. No intercurrent hemorrhage or other acute abnormality. Alejo De La Vega MD Hip and Pelvis X-Ray 05/05/17 0000 Signed Impressions: Service Date/Time: Friday, May 05, 2017 10:59 - CONCLUSION: Left proximal femur trochanteric/subtrochanteric fracture lucency visualized. Postoperative changes. Choco Mustafa MD Chest CT 04/30/17 0000 Signed Impressions: Service Date/Time: Sunday, April 30, 2017 09:20 - CONCLUSION: 1. Bilateral pulmonary infiltrates more pronounced within the lower lobes with tiny bilateral pleural effusions. Material seen filling the lower lobe bronchi bilaterally either related to purulent material or perhaps mucus plugging. Deangelo Wren Jr., MD Carotid Artery Ultrasound 04/24/17 0000 Signed Impressions: Service Date/Time: April 09:45 - CONCLUSION: 1. No hemodynamically significant carotid artery stenosis. Arnie Middleton MD Hip X-Ray 04/21/17 0000 Signed Impressions: Service Date/Time: Friday, April 21, 2017 11:36 - CONCLUSION: Fluoroscopic images during placement of intramedullary juan left femur. Benja Ramsey MD Physical Exam GENERAL: Thin built poorly nourished, NAD, on the vent SKIN: No generalized rash. Cool and dry. EYES: Pupils equal round and reactive. No scleral icterus. No injection or drainage. ENT: No nasal drainage, moist oral mucosa NECK: Trach site ok. CARDIOVASCULAR: Regular rate and rhythm without murmurs, gallops, or rubs. RESPIRATORY: Clear to auscultation. Breath sounds decreased R>L GASTROINTESTINAL: Abdomen soft, mildly distended. No tenderness. MUSCULOSKELETAL: Pedal edema. Generalized anasarca. NEUROLOGICAL:. Opens eyes, not tracking, Does not follow commands Psych: could not be assessed. IV line sites with no e.o infection. Assessment & Plan Remarks Very MDR PSAE pneumonia (resistant to Avycaz and Zerbaxa and all other Cephalosporins and PCNs etc groups) E.coli and serratia in urine. Likely colonization. Likely mucus plugging. - S/P bronch - CXR better after bronch Left MCA infarction s/p neurological deficits. Recs: Continue Colistin nebs. Follow C/S Monitor progress Will not start any new Abx since she looks better post bronch Follow norma D/W Nelly Bland MD Oct 05, 2017 08:54
--- NOTE | 2017-10-05 14:46 | HHI.CCPN ---
Subjective Remarks/Hospital Course 04/24: 76-year-old female with a medical history significant for prior stroke, diabetes mellitus who was admitted with DKA and a hip fracture for which she underwent ORIF on 04/21. Patient developed altered mental status and was last noted to be okay around 5:30 AM. Subsequently there was a change in her mental status and she was noted to not be moving her right side for which stroke alert was called. Head CT showed large left MCA territory ischemic infarct with edema. Patient was transferred to the ICU by family medicine service in the critical care consult was requested. I evaluated the patient following arrival to the ICU. At that time she was laying in bed with her eyes open however not following commands and had a dense right hemiplegia. Patient was also evaluated by Dr. Malave from neurology. [facility] further discussed current event with patient's daughter following her arrival to the ICU. Per the daughter patient has been living with her since her stroke in 2014 and does ambulate however has been having problems with memory and incontinence as well as gait difficulties. She does not feel patient would want intubation or tracheostomy or PEG tube. 04/25: Patient remains encephalopathic, awake though not following commands consistently. Dense right hemiplegia persists. Appears to be awake enough to protect airway currently. Patient's daughter rescinded DNR and made a full code last evening. 04/26: Remains encephalopathic, not following commands. On Dobbhoff for tube feeds at 30 cc per hour. Had urinary retention and drained 2 L of urine after placing Moser catheter today. CT head done this morning with large left MCA territory infarct with left to right midline shift and significant cerebral edema. Hyperglycemia noted. Patient given mannitol earlier for increasing cerebral edema. 04/27: Remains encephalopathic, not following commands. On Dobbhoff tube feeds at 30 cc per hour. When into A. fib with RVR last night which responded with Lopressor 5 mg IV 1 dose. 04/28: Remains encephalopathic, arousable, not following commands. Moves left upper extremity spontaneously. Tolerating Dobbhoff tube feeds. Remains on nasal cannula. 04/29: Encephalopathic, eyes be arousable, moves left upper extremity spontaneously and occasionally opens eyes. Dense right hemiplegia and aphasia persists. On nasal cannula. Dobbhoff tube feeds being advanced. Patient was transfused 1 unit PRBCs yesterday. Urine culture with yeast from yesterday for which fluconazole being started. Had brief run of A. fib with RVR which improved with Lopressor IV, currently in sinus rhythm. 04/30: Worsening hypoxemic respiratory failure, currently on partial nonrebreather. Remains lethargic. WBC count increased from 14.6 today 20.7. Chest x-ray shows bilateral worsening infiltrates and small pleural effusions. Sodium 154, weight up by 8 KG. Albumin 1 mg Bumex 1. Also one dose of albumin. Remains in sinus tachycardia. Tmax 101.3 05/01: Patient was intubated yesterday for lack of airway protection, and severe hypoxemic respiratory failure from aspiration pneumonia involving multiple lobes. Patient is on the vent lethargic, no spontaneous eye opening. Chest x- ray remains unchanged. Remains intermittently febrile Tmax 101.3. WBC count improving 05/02: Remains critically ill with no improvement in mental status. Spiking fever of 101.7. Blood culture and sputum culture with staph aureus sputum also growing GNR, WBC count 22,000 now indicating worsening sepsis. Daughter still requesting aggressive care. Palliative care is following 05/03: S/P large area dominant hemisphere CVA. No neurological improvement. Now with pneumonia (infiltrate, fever, leukocytosis) and appropriate abx coverage. She will have a hard time surviving the hip fx, CVA, and pneumonia. Palliative Care needs to be a mainstay of our plan. 05/04: No improvement in neuro status. Sputum C&S allows us to narrow abx coverage to levaquin alone. Lungs remain quite congested. Enteral nutrition tolerated. 05/05: No improvement in neuro status. Moves left arm spontaneously. Flaccid right side. Unresponsive. Persistent mild hypoglycemia - will cut Levemir 50%. Abdomen more distended, check KUB. 05/06: CT head with massive left MCA infarction and > 1 cm shift in right handed woman. She opens eyes, does not track. 05/07: Patient open eyes. Attempts to respond. [place] speaking. Tolerating tube feeds. Positive bowel movement. Volume overloaded. 05/08: Tmax 99.4. Potassium being replaced. Ultrasound gallbladder currently pending. Transaminases are trending downward. Gently diurese. 05/09: Alk phos decreasing. Remains with good urine output. Neurological status not improving. 05/10: Fixed neuro deficit unchanged. Profound CVA. 05/11: Appears to track with eyes today. No improvement in motor function. Remains very edematous, diuretics doubled. 05/12: Continued thick secretions. Afebrile, leukocytosis resolved. 05/13: CT head with completed left MCA stroke, persistent edema and 5 mm shift away. Does not last long on SBTs - major decision now is trach/PEG. 05/14: Daughter has decided to proceed with trach and PEG. I have been pessimistic with her about chances for a meaningful recovery. 05/15: Plan for trach today. No change in neuro status. Still ventilator dependent. 05/16: Trach completed. Await PEG and disposition. 05/17: PEG placed 05/16. Start TFs today after nutrition consult. Work to place patient. 05/18: No improvement. Does open eyes, no focus or tracking. Completed large dominant (left) hemisphere CVA in right handed woman with severe deficit. Medicaid pending status, [facility] is following. 05/19: no improvements in neuro exam. ready for LTAC. will d/c moser and rectal tubes. 05/20: no changes or improvements. very difficult placement due to patient not [place] citizen. 05/21: no improvements. resting on vent overnight due to distress. 05/22: no neurologic changes. no improvements. attempted T-piece which failed after 10 minutes. 05/23: no improvements. poor prognosis. poor neuro exam. still failing weaning trials. 05/24: no improvements or changes. still failing t-piece trials. 05/25: No acute changes of improvement overnight. Failed CPAP due to apnea, tried again currently tolerating. Neurological exam unchanged. 05/26: No improvement in neurological function. 05/27: Patient has required Moser catheter because of breakdown of skin on upper thighs and groin. Urine has become infected, will treat. 05/28: Some drainage from around trach (placed 2 weeks ago). Will change out trach tube and inspect neck wound. I&O straight cath q6h order entered 05/17. 05/29: No improvement, remains obtunded. Failed CPAP trials yesterday and again today due to apnea. Moser placed due to persistent urinary retention 05/30: Obtunded, unresponsive. Failed SBTs, remains ventilator dependent. 05/31: Patient continues to fail SBT failed yesterday due to apnea. Neuro exam remains unchanged. 06/01: No acute changes overnight, 06/02: no changes. ekg done overnight for ? EKG changes seen on telemetry which were not visualized on EKG. 06/03: no improvements or changes. had long conversation with daughter yesterday. only facility which would accept patient is in [place] and daughter is refusing to allow patient to go there because it is "too far away." Daughter continues to push for aggressive care despite no improvements, and resistant to Hospice. Patient does not need acute inpatient therapy but lacks funding for appropriate disposition. 06/04: No acute events overnight, failed SBT due to apnea. 06/05: No acute events, continues to fail spontaneous breathing trials. Unable to wean 06/06 Currently tolerating CPAP. Will attempt TP today up to 4 hours. No acute events overnight 06/07: Tolerating trach collar/T-piece. Transfer soon. 06/08: Awaiting transfer. 06/09: Remains ventilator dependent. No improvement in neurological function. 06/10: No improvement. Daughter is not attending preplanned meetings to discuss disposition 06/12: Afebrile. Neurologically stable and unchanged. Noted sodium 135. Adding sodium chloride tablets 1 today. Not on free water.. Tolerating tube feeds at goal 45 cc an hour. 06/13: No improvement in neurological function. 06/14: No improvement. Fluid balance correct. Gas exchange acceptable. 06/15: No improvement. Obtunded and unresponsive. 06/16: no improvements in mental status. KUB overnight with dilated small bowel loops. given methylnaltrexone and erythromycin. today abdomen is soft and tolerating tube feeds. 06/17: tolerated t-piece x 6 hours yesterday. rested on cpap overnight. no changes in encephalopathy. 06/18: Currently on ventilator overnight. Multiple bowel movements. Thick yellow secretions noted in ventilator circuit. Opens eyes. 06/19: Afebrile. Tolerating stretcher chair yesterday on PSV. Tolerating tube feeding. Neurologically unchanged. 06/20: Afebrile. Resting in bed in no acute distress in sitting position. Currently on ventilator set sitting. Tolerated stretcher chair/PSV trial 6 hours yesterday. Neurologically unchanged. 06/21: Tmax 100.8. Patient with copious thick yellow secretions. Tolerating tube feeds. Positive bowel movement. Lasted only 1 hour PSV yesterday 06/22: Tmax 99.9. Continues to have thick secretions. Tolerating tube feeding. Positive BM. 06/23: Afebrile. Continues to have thick tracheal secretions from tracheostomy site. Tolerating tube feeding. 3 bowels movements. Opens eyes to stimulation. Stares at you but does not follow commands. 06/24: Remains encephalopathic, on mechanical ventilation via tracheostomy. Tolerating PEG feeds 06/25: Remains encephalopathic on mechanical ventilation. Tolerated C Pap +5 with pressure support +10 all day yesterday. Tolerating PEG feeds. 06/26: No improvement.Vent dependent still. 06/27: Remains encephalopathic, on mech vent via trach. Daily CPAP trials. 06/28: Unable to wean from ventilator. 06/29: Neurologically unchanged. Remains on mechanical ventilation. Daily C Pap trials ongoing. 06/30: Remains encephalopathic. On C Pap overnight. Tolerating tube feeds. 07/01: No change in neurologic status. On mechanical ventilation via tracheostomy. Tolerating tube feeds. 07/02: Remains encephalopathic. No change in neurologic status. On mechanical ventilation via tracheostomy. Daily C Pap trials ongoing. 07/03: Occasional spontaneous eye opening however remains encephalopathic. On mechanical ventilation via tracheostomy. 07/04: Tmax 99.2. Multiple bowel movements overnight. Tolerating tube feeds. On T piece trial at 5 L since noon yesterday. Otherwise neurologically unchanged. Daughter encouraged by movement of left leg. 07/05: Currently resting in bed on T piece 36 hours. Tolerates chair. No changes neurologically. Positive BM's. Tolerating her tube feeding. 07/06: Continue T-piece trials, if tolerated consider transfer to floor. 07/07: Extended T-piece trial. Plan transfer to floor. 07/09: Patient is experiencing apnea episodes and had to be placed back on higher FiO2.. Hold transfer. 07/10: X-ray left hip shows good anatomic alignment. Still requiring elevated FiO2. 07/11: Prealbumin 20, nutritional support is adequate and status is stable. No neurological improvement. 07/12: No improvement in neurological function. Continued acceptable respiratory effort. 07/13: No change. Subjective 10/03/17 Dr. Rizo notified captain of guards that patient would be transferring to ICU. Patient is known to [facility] service. She was originally admitted 04/20/17 after a fall with hip fracture resulting in ORIF 04/21. Postoperatively, she developed large R MCA stroke with midline shift. Her neurologic condition remained poor and she underwent trach 05/15/17 and PEG 05/16/17. She was eventually transitioned to Tpiece and transferred to floor. She has suffered from multiple infectious complications due to her persistent bedfast and trach dependent state. 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 She has been on trach collar with worsening hypoxemia therefore she is transferred to [place]. CXR from yesterday demonstrates bilateral pulmonary infiltrates. She has also had hyperkalemia today up to 6.7 which has been treated with kayexalate, down to 6. 3: improvement in air space disease with diuresis and bronch yesterday. no overall improvements in chronic poor prognosis. unlikely to survive this hospital stay. daughter has poor insight into the gravity of her mother's medical condition. she will not recover meaningfully. 10/05: continuing to clinically improve from a respiratory standpoint. no improvements in overall poor function. off vent on t-piece today. can likely transition out of ICU tomorrow. Objective Vital Signs Date Time Temp Pulse Resp B/P (MAP) Pulse Ox O2 Delivery O2 Flow Rate FiO2 10/05/17 14:00 57 10/05/17 12:00 30 10/05/17 12:00 99.3 18 120/58 (78) 100 10/03/17 21:12 T-piece 6.00 Intake and Output 10/05/17 10/05/17 10/06/17 08:00 16:00 00:00 Intake Total 815 ml Output Total 1360 ml Balance -545 ml Result Diagram: 10/04/17 0440 10/04/17 0440 Other Results Microbiology Date/Time Source Procedure Growth Status 10/04/17 01:07 Nasal Aspirate Influenza Types A,B Antigen (JEFFREY) - Final NEGATIVE FOR FLU A AND B ANTIGEN.... Complete Imaging Last Impressions Chest X-Ray 06/24/17 0600 Signed Impressions: Service Date/Time: Saturday, June 24, 2017 06:00 - CONCLUSION: Bilateral patchy infiltrates slightly worsened. Benja Ramsey MD Liver Ultrasound 06/19/17 0000 Signed Impressions: Service Date/Time: June 13:20 - CONCLUSION: 1. Mildly increased echotexture of the liver characteristic of hepatic steatosis. 2. Gallbladder sludge. Obdulio Sam MD Abdomen X-Ray 06/16/17 0000 Signed Impressions: Service Date/Time: Friday, June 16, 2017 04:48 - CONCLUSION: 1. Continued small bowel ileus. There has been no significant change when compared to the prior exam. Toy Duran MD Head CT 05/15/17 0000 Signed Impressions: Service Date/Time: May 19:59 - CONCLUSION: 1. 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 2. No bleed or new/acute infarct. Obdulio Simms MD Gall Bladder Ultrasound 05/08/17 0000 Signed Impressions: Service Date/Time: May 08:23 - CONCLUSION: Focally unremarkable appearance of the gallbladder Obdulio Chun MD Abdomen/Pelvis CT 05/07/17 0000 Signed Impressions: Service Date/Time: Sunday, May 07, 2017 13:23 - CONCLUSION: 1. Large left pneumothorax. 2. Bilateral lower lobe consolidation and bilateral moderate size pleural effusions. 3. Significant soft tissue thickening of the right lateral chest wall and left gluteus muscle. 4. Mild ascites. The findings were called to Dr. Carney. Deangelo Zamora MD Hip and Pelvis X-Ray 05/05/17 0000 Signed Impressions: Service Date/Time: Friday, May 05, 2017 10:59 - CONCLUSION: Left proximal femur trochanteric/subtrochanteric fracture lucency visualized. Postoperative changes. Choco Mustafa MD Chest CT 04/30/17 0000 Signed Impressions: Service Date/Time: Sunday, April 30, 2017 09:20 - CONCLUSION: 1. Bilateral pulmonary infiltrates more pronounced within the lower lobes with tiny bilateral pleural effusions. Material seen filling the lower lobe bronchi bilaterally either related to purulent material or perhaps mucus plugging. Deangelo Wren Jr., MD Carotid Artery Ultrasound 04/24/17 0000 Signed Impressions: Service Date/Time: April 09:45 - CONCLUSION: 1. No hemodynamically significant carotid artery stenosis. Arnie Middleton MD Hip X-Ray 04/21/17 0000 Signed Impressions: Service Date/Time: Friday, April 21, 2017 11:36 - CONCLUSION: Fluoroscopic images during placement of intramedullary siomara left femur. Benja Ramsey MD Objective Remarks GENERAL: Elderly female who is laying in [place] bed on trach collar SKIN: Warm and dry, adequately perfused. HEAD: Atraumatic. Normocephalic. mucous membranes moist. NECK: 8.[address] Trachea midline. No JVD. CARDIOVASCULAR: Regular rate and rhythm, sinus on the monitor. RESPIRATORY: unlabored. no accessory muscle use. trach collar. GASTROINTESTINAL: Abdomen soft, non-tender, nondistended. PEG in place with tube feeds running, site benign appearing. MUSCULOSKELETAL: Extremities without clubbing, cyanosis, or edema. No obvious deformities. NEUROLOGICAL: Eyes open spontaneously, does not appear to track. L gaze preference. R hemiparesis. Localizes with LUE. Very slight withdrawal of LLE to noxious stimuli. Procedures echo 04/24/2017 The left ventricular systolic function is low normal with an estimated ejection fraction in the range of 50- 55%. Mild concentric left ventricular hypertrophy. Normal left ventricular size. [id number] mitral valve regurgitation. A/P Assessment and Plan assessment: 77yF with massive left MCA CVA without any meaningful neurologic improvements in many months. now with very MDR pseudomonas and associated hypoxic respiratory failure. poor prognosis and unlikely to survive this hospitalization. daughter has very poor insight into her mother's poor condition , despite many conversations over the last few months. insists on aggressive care and insists that her mother will improve and will be taken home successfully one day. All I can offer at this point is ongoing diuresis for volume overload and the medical therapy for her pseudomonas. nothing else medically to offer. poor prognosis and unlikely to survive. off vent, stable for transition back out of ICU. Neuro/Psych: Left MCA CVA - 5.5 mm of [id number] subfalcine herniation, diagnosed 04/24. Persistent right-sided hemiparesis. Prior History of stroke Continue Aspirin 325 mg by tube daily. Stroke occurred 04/24/17. Patient was not a candidate for thrombolysis per discussion with neurology and radiology at that time. Repeat head CT 05/15 showed slight improvement in the midline shift now 5.5 mm and mass effect Neurosurgery consulted 04/30- Dr. López, recommended conservative management, now signed off. Neurology Dr. Malave has followed previously, signed off. Cardiovascular: Hypertension Norvasc 10 mg po daily, cardura 1 mg peg daily, metoprolol 12.5 peg bid, hydralazine 10 mg per per peg q8 hours. clonidine prn SBP >160 Echocardiogram 04/24/17 - EF 50 to 55%. Mild concentric LVH. trace to mild MVR ASA 325 for stroke as per above BNP elevated. continue forced diuresis. Pulmonary: Chronic Tracheostomy Now recurrent Acute hypoxemic respiratory failure Acute hypoxic respiratory failure - aspiration possible HCAP - previous episode resolved. Large left pneumothorax status post #10 Nepali chest tube 05/07 - resolved.Chest tube d/c'd 05/12/17 R pleural effusion - She previously underwent CT guided R thoracentesis in IR with removal of 1450 clear yellow fluid, pleural fluid studies not sent. Chronic respiratory failure, currently on Tpiece Obtained ABG and initially satisfactory on Tpiece: PH 7.42/PaCO2 40/PA O2 116/ bicarbonate 25.6. Respiratory condition declined, subsequently placed on PRVC TV 450 R 18 IT 1 PEEP 8 via 8 cuffed Shiley. ID recommending bronchoscopy. Daughter had previously refused but now is amenable to bronchoscopy. Proceeded with bronchoscopy after placing on vent. Performed BAL from RML and lingula per Dr. Ranjan Saleh request. Ipratropium/albuterol aerosols every 6 hours with albuterol aerosols every 2 hours GI/liver: Elevated transaminases, resolved Severe protein calorie malnutrition Small bowel ileus- resolved Hepatitis C antibody positive with negative genotype/viral load Hepatic steatosis Currently on PEG tube feeding with Glucerna 1.5 goal 45 cc an hour. Beneprotein tid. Lansoprazole 30 mg daily for GI regimen Docusate sodium 100 mg twice a day for bowel regimen can be held while on kayexalate. Previous CT abdomen/pelvis 05/07 - mild ascites. Large left pneumothorax. Right greater than left pleural effusion. liver ultrasound 06/19 revealed hepatic steatosis and gallbladder sludge Endocrine: Diabetes mellitus NPH 10 units subcut tid, received dose ~1900 on 10/03. Will hold. D10 @ 30/hr. SSI low-dose every 6 hours Holding glimepiride 4 mg by mouth daily /Renal/FEN: Hyperkalemia Hyponatremia, resolved Acute intravascular volume overload Discontinue 0.9 NaCl @ 100 ml/hr. d/c d10w. restart tube feeds. Periwick catheter in place lasix 40mg iv q6h for volume overload. Stopping bactrim which can contribute to hyperkalemia. Discussed with ID. stopped kayexalate. continue with lasix. Moser catheter previously placed for urinary retention on 04/26. Moser removed with q6h straight cath. Heme: Chronic Rivaroxaban use prior to admission Leukocytosis Normocytic anemia Thrombocytosis Follow CBC and coags. On subcutaneous enoxaparin 40 mg daily subcutaneous ID: MDR Pseudomonas aeruginosa and pneumonia (HCAP) MSSA bacteremia - resolved. Serratia/staph aureus pneumonia - resolved. C glabrata UTI - resolved. Citrobacter UTI - resolved. Serratia/MSSA sputum VAP resolved Current relevant cultures: 09/25/17 -sputum culture - Pseudomonas aeruginosa, multidrug resistant ( including Zerbaxa and Avycaz resistance). On Colestin nebs started 09/30 #4. Per ID, Dr. Ranjan Saleh On levaquin 500 mg IV daily 10/03, being discontinued per ID On Bactrim 800/160 bid which is being discontinued per d/w ID. Continue Lactinex bid. Prior cultures: Urine culture 04/26/17 sofie glabrata Blood culture 04/29/17 1 out of 4 bottles staph aureus Sputum culture 04/30/17 MSSA and Serratia. urine 05/07-> Serratia, treated. Urine 05/25: Citrobacter MSK: Left Intertroch Hip Fx s/p IMN 04/21/17. Vitamin D deficiency Sacral decubitus ulcer, Previously stage III, healing. Continue calcium vitamin D 250/125 one tablet 3x a day and cholecalciferol 5000 units daily. PT/OT evaluate and treat Maxsorb every 3 days/dressing changes every 3 days per wound care Continue bene protein one packet 3x a day Prophylaxis: SCDs. Heparin 5000 subcut q8 hours. GI - lansoprazole 30 mg by PEG tube daily ACCESS: PIV. FULL CODE Anuj Heaton MD Oct 05, 2017 14:46
[2017-10-05] MEDS: RESP: ALBUTEROL 2.5 MG/3 ML NEB (PRN) NEB (21:41)
[2017-10-06] VITALS (18 sets, daily range): BP systolic 92–140; BP diastolic 45–71; PULSE 74–89; RESP 18–20; TEMP 97.9–99.3; O2SAT 94–99
[2017-10-06] MEDS: FUROSEMIDE 40 MG/4 ML VIAL IV PUSH SCH ×2 (00:06→05:28)
[2017-10-06] MEDS: hydrALAZINE HCL 10 MG TAB PEG SCH ×3 (05:28→22:20)
[2017-10-06] MEDS: HEPARIN SODIUM - SQ 10,000 UNITS/ML VIAL SQ SCH ×3 (05:28→22:20)
[2017-10-06] MEDS: ARTIFICIAL TEARS OPTH SOLN 15 ML BTL EACH EYE SCH ×3 (05:28→20:06)
[2017-10-06] MEDS: INSULIN ASPART SUPPLEMENTAL SCALE SQ SCH ×5 (05:29→19:40)
[2017-10-06] MEDS: RESP: ALBUTEROL 2.5 MG/IPRATROPIUM 0.5 MG NEB (PRN) NEB ×2 (07:40→15:14)
[2017-10-06] MEDS: RESP: COLISTIN 150 MG VIAL NEB SCH ×3 (08:25→23:25)
[2017-10-06] MEDS: ASPIRIN 325 MG TAB DOBHOFF SCH (08:43)
[2017-10-06] MEDS: LACTOBACILLUS ACIDOPHILUS TAB PEG SCH ×2 (08:43→20:05)
[2017-10-06] MEDS: DOXAZOSIN MESYLATE 1 MG TAB PEG SCH (08:43)
[2017-10-06] MEDS: CHOLECALCIFEROL (VIT D3) 5000 UNIT CAP PEG SCH (08:43)
[2017-10-06] MEDS: LANSOPRAZOLE SOLUTAB 30 MG TAB NG SCH (08:44)
[2017-10-06] MEDS: METOPROLOL TARTRATE 25 MG TAB PEG SCH ×2 (08:44→20:05)
[2017-10-06] MEDS: SODIUM CHLORIDE 0.9% FLUSH 5 ML FLUSH IV FLUSH SCH ×2 (08:44→20:05)
[2017-10-06] MEDS: CALCIUM/VITAMIN D 250 MG/125 U TAB PEG SCH ×3 (08:44→19:40)
[2017-10-06] MEDS: CHLORHEXIDINE 0.12% (ORAL KIT) 15 ML CUP MT SCH ×2 (08:46→20:00)
--- NOTE | 2017-10-06 09:35 | HHI.PR ---
Subjective Remarks no major overnight events. Patient is non verbal. Objective Vitals Vital Signs Date Time Temp Pulse Resp B/P (MAP) Pulse Ox O2 Delivery O2 Flow Rate FiO2 10/06/17 07:44 97 30 10/06/17 06:00 78 10/06/17 04:02 95 30 10/06/17 04:00 99.3 80 18 140/63 (88) 94 10/06/17 04:00 80 10/06/17 04:00 30 10/06/17 02:00 74 10/06/17 01:35 98 30 10/06/17 00:00 75 10/06/17 00:00 98.5 75 18 124/60 (81) 97 10/06/17 00:00 30 10/05/17 22:30 96 30 10/05/17 22:00 74 10/05/17 20:00 30 10/05/17 20:00 59 10/05/17 20:00 98.2 59 20 120/58 (78) 98 10/05/17 19:20 99 30 10/05/17 18:00 59 10/05/17 17:08 30 10/05/17 16:00 66 10/05/17 16:00 98.5 66 20 148/63 (91) 94 10/05/17 14:00 57 10/05/17 12:00 30 10/05/17 12:00 58 10/05/17 12:00 99.3 59 18 120/58 (78) 100 10/05/17 11:41 100 35 10/05/17 10:00 54 I/O 10/05/17 10/05/17 10/05/17 10/06/17 10/06/17 10/06/17 07:00 15:00 23:00 07:00 15:00 23:00 Intake Total 815 ml 72 ml 692 ml 475 ml Output Total 1360 ml 540 ml 800 ml Balance -545 ml 72 ml 152 ml -325 ml IV Total 120 ml 72 ml Tube Feeding 495 ml 492 ml 475 ml Other 200 ml 200 ml Output Urine Total 1300 ml 500 ml 500 ml Stool Total 60 ml 40 ml 300 ml # Bowel Movements 1 Result Diagram: 10/04/17 0440 10/04/17 0440 Imaging Last Impressions Chest X-Ray 10/04/17 0900 Signed Impressions: Service Date/Time: Wednesday, October 04, 2017 08:53 - CONCLUSION: Significant improvement with almost complete resolution of bilateral airspace disease. Benja Ramsey MD Thoracentesis 08/05/17 1535 Signed Impressions: Service Date/Time: Saturday, August 05, 2017 16:08 - CONCLUSION: Uncomplicated CT-guided thoracentesis. Sage Adler MD Chest Ultrasound 08/02/17 0000 Signed Impressions: Service Date/Time: Tuesday, August 01, 2017 22:06 - CONCLUSION: 1. Moderate right pleural effusion, as above. Alejo De La Vega MD Hip and Pelvis X-Ray 07/09/17 0000 Signed Impressions: Service Date/Time: Sunday, July 09, 2017 14:04 - CONCLUSION: Anatomic alignment. Ricardo Middleton MD FACR Liver Ultrasound 06/19/17 0000 Signed Impressions: Service Date/Time: June 13:20 - CONCLUSION: 1. Mildly increased echotexture of the liver characteristic of hepatic steatosis. 2. Gallbladder sludge. Obdulio Sam MD Abdomen X-Ray 06/16/17 0000 Signed Impressions: Service Date/Time: Friday, June 16, 2017 04:48 - CONCLUSION: 1. Continued small bowel ileus. There has been no significant change when compared to the prior exam. Toy Duran MD Head CT 05/15/17 0000 Signed Impressions: Service Date/Time: May 19:59 - CONCLUSION: 1. 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 2. No bleed or new/acute infarct. Obdulio Simms MD Gall Bladder Ultrasound 05/08/17 0000 Signed Impressions: Service Date/Time: May 08:23 - CONCLUSION: Focally unremarkable appearance of the gallbladder Obdulio Chun MD Abdomen/Pelvis CT 05/07/17 0000 Signed Impressions: Service Date/Time: Sunday, May 07, 2017 13:23 - CONCLUSION: 1. Large left pneumothorax. 2. Bilateral lower lobe consolidation and bilateral moderate size pleural effusions. 3. Significant soft tissue thickening of the right lateral chest wall and left gluteus muscle. 4. Mild ascites. The findings were called to Dr. Carney. Deangelo Zamora MD Chest CT 04/30/17 0000 Signed Impressions: Service Date/Time: Sunday, April 30, 2017 09:20 - CONCLUSION: 1. Bilateral pulmonary infiltrates more pronounced within the lower lobes with tiny bilateral pleural effusions. Material seen filling the lower lobe bronchi bilaterally either related to purulent material or perhaps mucus plugging. Deangelo Wren Jr., MD Carotid Artery Ultrasound 04/24/17 0000 Signed Impressions: Service Date/Time: April 09:45 - CONCLUSION: 1. No hemodynamically significant carotid artery stenosis. Arnie Middleton MD Hip X-Ray 04/21/17 0000 Signed Impressions: Service Date/Time: Friday, April 21, 2017 11:36 - CONCLUSION: Fluoroscopic images during placement of intramedullary siomara left femur. Benja Ramsey MD Objective Remarks GENERAL: Unresponsive to verbal physical stimuli. SKIN: Warm and dry. HEAD: Normocephalic. EYES: No scleral icterus. No injection or drainage. NECK: Supple, trachea midline. No JVD or lymphadenopathy. T piece in place, no redness over trach insertion site. CARDIOVASCULAR: Regular rate and rhythm without murmurs, gallops, or rubs. RESPIRATORY: Scattered rhonchi audible on the right lung, left lung is clear to auscultation. GASTROINTESTINAL: Abdomen soft, non-tender, nondistended. MUSCULOSKELETAL: No cyanosis, or edema. BACK: Nontender without obvious deformity. No CVA tenderness. Neuro: Awake and alert, does not follow commands. Nonverbal. Procedures echo 04/24/2017 The left ventricular systolic function is low normal with an estimated ejection fraction in the range of 50- 55%. Mild concentric left ventricular hypertrophy. Normal left ventricular size. Xifbl-gi-lymi mitral valve regurgitation. Medications and IVs Current Medications Medications (Trade) Dose Ordered Sig/Zeferino Route Start Time Stop Time Status Last Admin (Narcan Inj) 0.4 mg UNSCH PRN IV 04/20/17 17:15 (NS Flush) 2 ml BID IV FLUSH 04/24/17 21:00 10/06/17 20:05 (NS Flush) 2 ml UNSCH PRN IV FLUSH 04/24/17 09:30 09/17/17 08:48 (Aspirin) 325 mg DAILY DOBHOFF 04/27/17 09:00 10/06/17 08:43 (Prevacid Odt) 30 mg DAILY NG 05/08/17 09:00 10/06/17 08:44 (Glucagon Inj) 1 mg UNSCH PRN OTHER 05/21/17 13:15 (D50w (Syr) Inj) 50 ml UNSCH PRN IV PUSH 05/22/17 17:15 10/04/17 01:57 (Tears Naturale Opth Soln) 1 drop Q8HR EACH EYE 06/12/17 07:15 10/06/17 20:06 (Nitroglycerin 2% Oint) 2 inch Q6H PRN TOPICAL 06/21/17 08:00 06/30/17 14:37 (Heparin Inj) 5,000 units Q8HR SQ 07/15/17 08:00 10/06/17 13:20 (NovoLOG SUPPLEMENTAL SCALE) 1 Q6HR SQ 07/21/17 18:00 10/06/17 19:40 (Duoneb Neb) 1 ampule Q6HR NEB PRN NEB 08/10/17 14:00 10/06/17 15:14 (Pill Splitter) 1 ea UNSCH PRN OTHER 09/05/17 11:00 (Tylenol) 500 mg Q6H PRN PEG 09/16/17 16:15 09/16/17 16:36 (Apresoline) 10 mg Q8HR PEG 09/24/17 14:00 10/06/17 13:23 (Coly-Mycin M Neb) 75 mg Q8HR NEB NEB 09/30/17 16:00 10/06/17 15:55 (NovoLIN N INJ) 10 units TID SQ 10/02/17 09:00 Future Hold 10/03/17 18:43 (Norvasc) 10 mg DAILY PEG 10/04/17 09:00 10/06/17 08:43 (Oscal-D 250-125) 250 mg TID PEG 10/03/17 13:00 10/06/17 19:40 (Vitamin D3) 5,000 units DAILY PEG 10/04/17 09:00 10/06/17 08:43 (Catapres) 0.1 mg Q6H PRN PEG 10/03/17 12:30 (Cardura) 1 mg DAILY PEG 10/04/17 09:00 10/06/17 08:43 (Lactinex) 1 tab Q12HR PEG 10/03/17 21:00 10/06/17 20:05 (Lopressor) 12.5 mg Q12HR PEG 10/03/17 21:00 10/06/17 20:05 (Miralax) 17 gm DAILY PRN PEG 10/03/17 12:00 (Beneprotein Powder) 1 pack TID PRN G-TUBE 10/03/17 12:00 (Albuterol Neb) 2.5 mg Q2HR NEB PRN NEB 10/03/17 21:45 10/05/17 21:41 (fentaNYL INJ) 50 mcg Q1H PRN IV PUSH 10/03/17 23:00 (Peridex 0.12% Liq) 15 ml BID@08,20 MT 10/04/17 08:00 10/06/17 20:00 A/P Problem List: (1) Acute ischemic left middle cerebral artery (MCA) stroke ICD Code: I63.512 - Cerebral infarction due to unspecified occlusion or stenosis of left middle cerebral artery Status: Acute (2) Acute respiratory failure ICD Code: J96.00 - Acute respiratory failure, unspecified whether with hypoxia or hypercapnia (3) Right hemiplegia ICD Code: G81.91 - Hemiplegia, unspecified affecting right dominant side Status: Acute (4) Sacral decubitus ulcer ICD Code: L89.159 - Pressure ulcer of sacral region, unspecified stage Status: Chronic (5) HCAP (healthcare-associated pneumonia) ICD Code: J18.9 - Pneumonia, unspecified organism Status: Resolved (6) 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 now with very MDR pseudomonas and associated hypoxic respiratory failure. poor prognosis and unlikely to survive this hospitalization. daughter has very poor insight into her mother's poor condition , despite many conversations over the last few months. insists on aggressive care and insists that her mother will improve and will be taken home successfully one day. All I can offer at this point is ongoing diuresis for volume overload and the medical therapy for her pseudomonas. nothing else medically to offer. poor prognosis and unlikely to survive. off vent, stable for transition back out of ICU. Neuro/Psych: Left MCA CVA - 5.5 mm of [id number]-[id number] subfalcine herniation, diagnosed 04/24. Persistent right-sided hemiparesis. Prior History of stroke Continue Aspirin 325 mg by tube daily. Stroke occurred 04/24/17. Patient was not a candidate for thrombolysis per discussion with neurology and radiology at that time. Repeat head CT 05/15 showed slight improvement in the midline shift now 5.5 mm and mass effect Neurosurgery consulted 04/30- Dr. López, recommended conservative management, now signed off. Neurology Dr. Malave has followed previously, signed off. Cardiovascular: Hypertension Norvasc 10 mg po daily, cardura 1 mg peg daily, metoprolol 12.5 peg bid, hydralazine 10 mg per per peg q8 hours. clonidine prn SBP >160 Echocardiogram 04/24/17 - EF 50 to 55%. Mild concentric LVH. trace to mild MVR ASA 325 for stroke as per above BNP elevated. continue forced diuresis. 2/5 BP better. Continue to monitor vital signs. Pulmonary: Chronic Tracheostomy Now recurrent Acute hypoxemic respiratory failure Acute hypoxic respiratory failure - aspiration possible HCAP - previous episode resolved. Large left pneumothorax status post #10 Italian chest tube 05/07 - resolved.Chest tube d/c'd 05/12/17 R pleural effusion - She previously underwent CT guided R thoracentesis in IR with removal of 1450 clear yellow fluid, pleural fluid studies not sent. Chronic respiratory failure, currently on Tpiece Obtained ABG and initially satisfactory on Tpiece: PH 7.42/PaCO2 40/PA O2 116/ bicarbonate 25.6. Respiratory condition declined, subsequently placed on PRVC TV 450 R 18 IT 1 PEEP 8 via 8 cuffed Shiley. ID recommending bronchoscopy. Daughter had previously refused but now is amenable to bronchoscopy. Proceeded with bronchoscopy after placing on vent. Performed BAL from RML and lingula per Dr. Ranjan Saleh request. Ipratropium/albuterol aerosols every 6 hours with albuterol aerosols every 2 hours GI/liver: Elevated transaminases, resolved Severe protein calorie malnutrition Small bowel ileus- resolved Hepatitis C antibody positive with negative genotype/viral load Hepatic steatosis Currently on PEG tube feeding with Glucerna 1.5 goal 45 cc an hour. Beneprotein tid. Lansoprazole 30 mg daily for GI regimen Docusate sodium 100 mg twice a day for bowel regimen can be held while on kayexalate. Previous CT abdomen/pelvis 05/07 - mild ascites. Large left pneumothorax. Right greater than left pleural effusion. liver ultrasound 06/19 revealed hepatic steatosis and gallbladder sludge Endocrine: Diabetes mellitus NPH 10 units subcut tid, received dose ~1900 on 10/03. Will hold. D10 @ 30/hr. SSI low-dose every 6 hours Holding glimepiride 4 mg by mouth daily /Renal/FEN: Hyperkalemia Hyponatremia, resolved Acute intravascular volume overload Discontinue 0.9 NaCl @ 100 ml/hr. d/c d10w. restart tube feeds. Periwick catheter in place lasix 40mg iv q6h for volume overload. Stopping bactrim which can contribute to hyperkalemia. Discussed with ID. stopped kayexalate. continue with lasix. Leavitt catheter previously placed for urinary retention on 04/26. Leavitt removed with q6h straight cath. Heme: Chronic Rivaroxaban use prior to admission Leukocytosis Normocytic anemia Thrombocytosis Follow CBC and coags. On subcutaneous enoxaparin 40 mg daily subcutaneous ID: MDR Pseudomonas aeruginosa and pneumonia (HCAP) MSSA bacteremia - resolved. Serratia/staph aureus pneumonia - resolved. C glabrata UTI - resolved. Citrobacter UTI - resolved. Serratia/MSSA sputum VAP resolved Current relevant cultures: 09/25/17 -sputum culture - Pseudomonas aeruginosa, multidrug resistant ( including Zerbaxa and Avycaz resistance). On Colestin nebs started 09/30 #4. Per ID, Dr. Ranjan Saleh On levaquin 500 mg IV daily 10/03, being discontinued per ID On Bactrim 800/160 bid which is being discontinued per d/w ID. Continue Lactinex bid. Prior cultures: Urine culture 04/26/17 sofie glabrata Blood culture 04/29/17 1 out of 4 bottles staph aureus Sputum culture 04/30/17 MSSA and Serratia. urine 05/07-> Serratia, treated. Urine 05/25: Citrobacter MSK: Left Intertroch Hip Fx s/p IMN 04/21/17. Vitamin D deficiency Sacral decubitus ulcer, Previously stage III, healing. Continue calcium vitamin D 250/125 one tablet 3x a day and cholecalciferol 5000 units daily. PT/OT evaluate and treat Maxsorb every 3 days/dressing changes every 3 days per wound care Continue bene protein one packet 3x a day Prophylaxis: SCDs. Heparin 5000 subcut q8 hours. GI - lansoprazole 30 mg by PEG tube daily ACCESS: PIV. FULL CODE Discharge Planning Continue to monitor the medical floor. On IV antibiotics. Very poor prognosis given multidrug-resistant Pseudomonas hospital-acquired pneumonia. Appreciate palliative care efforts. Problem Qualifiers (1) Acute respiratory failure: Qualified Codes: J96.00 - Acute respiratory failure, unspecified whether with hypoxia or hypercapnia (2) Sacral decubitus ulcer: Qualified Codes: L89.152 - Pressure ulcer of sacral region, stage 2 (3) Chronic respiratory failure: Qualified Codes: J96.11 - Chronic respiratory failure with hypoxia Aleksandar Alford MD Oct 06, 2017 09:35
--- NOTE | 2017-10-06 10:37 | HHI.IDPN ---
Subjective Subjective Remarks is a 76 y/o CF with PMHx of stroke, diabetes mellitus who was admitted with DKA and a hip fracture for which she underwent ORIF on 04/21. While in hospital recovering, patient developed altered mental status. Due to worsening mental status a stroke alert was called. Head CT showed large left MCA territory ischemic infarct with edema. Patient was transferred to the ICU by family medicine service and critical care consult was requested. At the time of evaluation in [facility], patient was opening her eyes however not following commands and had a dense right hemiplegia. Patient was also evaluated by Dr. Malave from neurology. At baseline, the patient lives with her daughter since her stroke in 2014 and does ambulate however has been having problems with memory and incontinence as well as gait difficulties. She does not feel patient would want intubation or tracheostomy or PEG tube. On 05/01/17 patient was intubated for severe hypoxemic respiratory failure from aspiration pneumonia. She also had a temp of 101 F. Blood culture and sputum culture with staph aureus sputum also growing GNR, WBC count 22,000 now indicating worsening sepsis. 05/06/[address] head with massive left MCA infarction and > 1 cm shift in right handed woman. Meanwhile patient is also being treated for C.glabrata UTI. At the time of my evaluation, patient is in [facility] on ventilator. She spontaneously opens eyes, did not follow commands for me. She underwent a CT A/ P which shows a left side pneumothorax. is placing a pigtail chest tube. She has a moser in place but no central line. ID is reconsulted for evaluation and Mment of Right side pneumonia with possible collapse lung, very MDR PSAE. Notes reviewed D/W RN On the vent, Will be placed on t piece shortly per d.w ICU MD. Overall clinically stable normal wbc, no fevers not much secretions. S/P bronch 10/03/17. Post Bronch CXR remarkably improved. Temps ok No rash No diarrrhea Bronch C/S GNR ID pending. Antibiotics Current Medications Colistin nebs Medications (Trade) Dose Ordered Sig/Zeferino Route Start Time Stop Time Status Last Admin (Narcan Inj) 0.4 mg UNSCH PRN IV 04/20/17 17:15 (NS Flush) 2 ml BID IV FLUSH 04/24/17 21:00 10/04/17 21:00 (NS Flush) 2 ml UNSCH PRN IV FLUSH 04/24/17 09:30 09/17/17 08:48 (Aspirin) 325 mg DAILY DOBHOFF 04/27/17 09:00 10/04/17 08:44 (Prevacid Odt) 30 mg DAILY NG 05/08/17 09:00 10/04/17 08:44 (Glucagon Inj) 1 mg UNSCH PRN OTHER 05/21/17 13:15 (D50w (Syr) Inj) 50 ml UNSCH PRN IV PUSH 05/22/17 17:15 10/04/17 01:57 (Tears Naturale Opth Soln) 1 drop Q8HR EACH EYE 06/12/17 07:15 10/05/17 06:10 (Nitroglycerin 2% Oint) 2 inch Q6H PRN TOPICAL 06/21/17 08:00 06/30/17 14:37 (Heparin Inj) 5,000 units Q8HR SQ 07/15/17 08:00 10/05/17 06:09 (NovoLOG SUPPLEMENTAL SCALE) 1 Q6HR SQ 07/21/17 18:00 10/05/17 06:00 (Duoneb Neb) 1 ampule Q6HR NEB PRN NEB 08/10/17 14:00 10/04/17 22:37 (Pill Splitter) 1 ea UNSCH PRN OTHER 09/05/17 11:00 (Tylenol) 500 mg Q6H PRN PEG 09/16/17 16:15 09/16/17 16:36 (Apresoline) 10 mg Q8HR PEG 09/24/17 14:00 10/05/17 06:09 (Coly-Mycin M Neb) 75 mg Q8HR NEB NEB 09/30/17 16:00 10/04/17 22:38 (NovoLIN N INJ) 10 units TID SQ 10/02/17 09:00 Future Hold 10/03/17 18:43 (Norvasc) 10 mg DAILY PEG 10/04/17 09:00 10/04/17 08:45 (Oscal-D 250-125) 250 mg TID PEG 10/03/17 13:00 10/04/17 17:43 (Vitamin D3) 5,000 units DAILY PEG 10/04/17 09:00 10/04/17 08:44 (Catapres) 0.1 mg Q6H PRN PEG 10/03/17 12:30 (Cardura) 1 mg DAILY PEG 10/04/17 09:00 10/04/17 08:45 (Lactinex) 1 tab Q12HR PEG 10/03/17 21:00 10/04/17 21:00 (Lopressor) 12.5 mg Q12HR PEG 10/03/17 21:00 10/04/17 21:00 (Kayexalate Liq) 15 gm BID PEG 10/03/17 21:00 10/03/17 21:00 (Miralax) 17 gm DAILY PRN PEG 10/03/17 12:00 (Beneprotein Powder) 1 pack TID PRN G-TUBE 10/03/17 12:00 (Albuterol Neb) 2.5 mg Q2HR NEB PRN NEB 10/03/17 21:45 Dextrose 500 ml @ 10 mls/hr Q24H IV 10/03/17 23:00 10/04/17 15:49 (fentaNYL INJ) 50 mcg Q1H PRN IV PUSH 10/03/17 23:00 (Peridex 0.12% Liq) 15 ml BID@08,20 MT 10/04/17 08:00 10/04/17 20:00 (Lasix Inj) 40 mg Q6HR IV PUSH 10/04/17 12:00 10/05/17 06:09 Lines Line sites with no e.o infection. Past Medical History reviewed Allergies: Coded Allergies: No Known Allergies (Unverified , 04/20/17) Objective . Vital Signs Date Time Temp Pulse Resp B/P (MAP) Pulse Ox O2 Delivery O2 Flow Rate FiO2 10/06/17 07:44 97 30 10/06/17 06:00 78 10/06/17 04:02 95 30 10/06/17 04:00 99.3 80 18 140/63 (88) 94 10/06/17 04:00 80 10/06/17 04:00 30 10/06/17 02:00 74 10/06/17 01:35 98 30 10/06/17 00:00 75 10/06/17 00:00 98.5 75 18 124/60 (81) 97 10/06/17 00:00 30 10/05/17 22:30 96 30 10/05/17 22:00 74 10/05/17 20:00 30 10/05/17 20:00 59 10/05/17 20:00 98.2 59 20 120/58 (78) 98 10/05/17 19:20 99 30 10/05/17 18:00 59 10/05/17 17:08 30 10/05/17 16:00 66 10/05/17 16:00 98.5 66 20 148/63 (91) 94 10/05/17 14:00 57 10/05/17 12:00 30 10/05/17 12:00 58 10/05/17 12:00 99.3 59 18 120/58 (78) 100 10/05/17 11:41 100 35 . Microbiology Date/Time Source Procedure Growth Status 10/04/17 01:07 Nasal Aspirate Influenza Types A,B Antigen (JEFFREY) - Final NEGATIVE FOR FLU A AND B ANTIGEN.... Complete 10/03/17 23:00 Bronchial Washings Right Mid Lobe Fungal Smear - Final NO FUNGAL ELEMENTS SEEN. Resulted 10/03/17 23:00 Bronchial Washings Right Mid Lobe Fungal Culture Pending Resulted 10/03/17 23:00 Bronchial Washings Other Fungal Smear - Final NO FUNGAL ELEMENTS SEEN. Resulted 10/03/17 23:00 Bronchial Washings Other Fungal Culture Pending Resulted 10/03/17 23:00 Bronchial Washings Right Mid Lobe Gram Stain - Final Resulted 10/03/17 23:00 Bronchial Culture - Preliminary Serratia Marcescens Gram Negative Juan Resulted 10/03/17 23:00 Bronchial Washings Other Gram Stain - Final Resulted 10/03/17 23:00 Bronchial Culture - Preliminary Serratia Marcescens Gram Negative Juan Resulted Imaging Last Impressions Chest X-Ray 05/11/17 0000 Signed Impressions: Service Date/Time: Thursday, May 11, 2017 09:37 - CONCLUSION: 1. Small right pleural effusion. 2. Bilateral mid and lower lung zone predominant air space opacity could represent pulmonary edema given the appearance and distribution. Obdulio Sam MD Abdomen X-Ray 05/10/17 0000 Signed Impressions: Service Date/Time: Wednesday, May 10, 2017 22:08 - CONCLUSION: Tip of Dobbhoff catheter is in the antrum of the stomach. Sage Adler MD Gall Bladder Ultrasound 05/08/17 0000 Signed Impressions: Service Date/Time: May 08:23 - CONCLUSION: Focally unremarkable appearance of the gallbladder Obdulio Chun MD Abdomen/Pelvis CT 05/07/17 0000 Signed Impressions: Service Date/Time: Sunday, May 07, 2017 13:23 - CONCLUSION: 1. Large left pneumothorax. 2. Bilateral lower lobe consolidation and bilateral moderate size pleural effusions. 3. Significant soft tissue thickening of the right lateral chest wall and left gluteus muscle. 4. Mild ascites. The findings were called to Dr. Carney. Deangelo Zamora MD Head CT 05/06/17 0000 Signed Impressions: Service Date/Time: Saturday, May 06, 2017 04:18 - CONCLUSION: 1. Evolving large left-sided MCA territory infarct with minimally improved ongh-bv-azunh subfalcine shift. 2. No intercurrent hemorrhage or other acute abnormality. Alejo De La Vega MD Hip and Pelvis X-Ray 05/05/17 0000 Signed Impressions: Service Date/Time: Friday, May 05, 2017 10:59 - CONCLUSION: Left proximal femur trochanteric/subtrochanteric fracture lucency visualized. Postoperative changes. Choco Mustafa MD Chest CT 04/30/17 0000 Signed Impressions: Service Date/Time: Sunday, April 30, 2017 09:20 - CONCLUSION: 1. Bilateral pulmonary infiltrates more pronounced within the lower lobes with tiny bilateral pleural effusions. Material seen filling the lower lobe bronchi bilaterally either related to purulent material or perhaps mucus plugging. Deangelo Wren Jr., MD Carotid Artery Ultrasound 04/24/17 0000 Signed Impressions: Service Date/Time: April 09:45 - CONCLUSION: 1. No hemodynamically significant carotid artery stenosis. Arnie Middleton MD Hip X-Ray 04/21/17 0000 Signed Impressions: Service Date/Time: Friday, April 21, 2017 11:36 - CONCLUSION: Fluoroscopic images during placement of intramedullary juan left femur. Benja Ramsey MD Physical Exam GENERAL: Thin built poorly nourished, NAD, on the vent SKIN: No generalized rash. Cool and dry. EYES: Pupils equal round and reactive. No scleral icterus. No injection or drainage. ENT: No nasal drainage, moist oral mucosa NECK: Trach site ok. CARDIOVASCULAR: Regular rate and rhythm without murmurs, gallops, or rubs. RESPIRATORY: Clear to auscultation. Breath sounds decreased R>L GASTROINTESTINAL: Abdomen soft, mildly distended. No tenderness. MUSCULOSKELETAL: Pedal edema. Generalized anasarca. NEUROLOGICAL:. Opens eyes, not tracking, Does not follow commands Psych: could not be assessed. IV line sites with no e.o infection. Assessment & Plan Remarks Very MDR PSAE pneumonia (resistant to Avycaz and Zerbaxa and all other Cephalosporins and PCNs etc groups) E.coli and serratia in urine. Likely colonization. Likely mucus plugging. - S/P bronch - CXR better after bronch Left MCA infarction s/p neurological deficits. Recs: Continue Colistin nebs. Follow C/S Monitor progress Will not start any new Abx since she looks better post bronch Follow temps d/w . D/W Jane Bai MD Oct 06, 2017 10:37
--- NOTE | 2017-10-06 10:59 | HHI.CCPN ---
Subjective Remarks/Hospital Course 04/24: 76-year-old female with a medical history significant for prior stroke, diabetes mellitus who was admitted with DKA and a hip fracture for which she underwent ORIF on 04/21. Patient developed altered mental status and was last noted to be okay around 5:30 AM. Subsequently there was a change in her mental status and she was noted to not be moving her right side for which stroke alert was called. Head CT showed large left MCA territory ischemic infarct with edema. Patient was transferred to the ICU by family medicine service in the critical care consult was requested. I evaluated the patient following arrival to the ICU. At that time she was laying in bed with her eyes open however not following commands and had a dense right hemiplegia. Patient was also evaluated by Dr. Malave from neurology. [facility] further discussed current event with patient's daughter following her arrival to the ICU. Per the daughter patient has been living with her since her stroke in 2014 and does ambulate however has been having problems with memory and incontinence as well as gait difficulties. She does not feel patient would want intubation or tracheostomy or PEG tube. 04/25: Patient remains encephalopathic, awake though not following commands consistently. Dense right hemiplegia persists. Appears to be awake enough to protect airway currently. Patient's daughter rescinded DNR and made a full code last evening. 04/26: Remains encephalopathic, not following commands. On Dobbhoff for tube feeds at 30 cc per hour. Had urinary retention and drained 2 L of urine after placing Moser catheter today. CT head done this morning with large left MCA territory infarct with left to right midline shift and significant cerebral edema. Hyperglycemia noted. Patient given mannitol earlier for increasing cerebral edema. 04/27: Remains encephalopathic, not following commands. On Dobbhoff tube feeds at 30 cc per hour. When into A. fib with RVR last night which responded with Lopressor 5 mg IV 1 dose. 04/28: Remains encephalopathic, arousable, not following commands. Moves left upper extremity spontaneously. Tolerating Dobbhoff tube feeds. Remains on nasal cannula. 04/29: Encephalopathic, eyes be arousable, moves left upper extremity spontaneously and occasionally opens eyes. Dense right hemiplegia and aphasia persists. On nasal cannula. Dobbhoff tube feeds being advanced. Patient was transfused 1 unit PRBCs yesterday. Urine culture with yeast from yesterday for which fluconazole being started. Had brief run of A. fib with RVR which improved with Lopressor IV, currently in sinus rhythm. 04/30: Worsening hypoxemic respiratory failure, currently on partial nonrebreather. Remains lethargic. WBC count increased from 14.6 today 20.7. Chest x-ray shows bilateral worsening infiltrates and small pleural effusions. Sodium 154, weight up by 8 KG. Albumin 1 mg Bumex 1. Also one dose of albumin. Remains in sinus tachycardia. Tmax 101.3 05/01: Patient was intubated yesterday for lack of airway protection, and severe hypoxemic respiratory failure from aspiration pneumonia involving multiple lobes. Patient is on the vent lethargic, no spontaneous eye opening. Chest x- ray remains unchanged. Remains intermittently febrile Tmax 101.3. WBC count improving 05/02: Remains critically ill with no improvement in mental status. Spiking fever of 101.7. Blood culture and sputum culture with staph aureus sputum also growing GNR, WBC count 22,000 now indicating worsening sepsis. Daughter still requesting aggressive care. Palliative care is following 05/03: S/P large area dominant hemisphere CVA. No neurological improvement. Now with pneumonia (infiltrate, fever, leukocytosis) and appropriate abx coverage. She will have a hard time surviving the hip fx, CVA, and pneumonia. Palliative Care needs to be a mainstay of our plan. 05/04: No improvement in neuro status. Sputum C&S allows us to narrow abx coverage to levaquin alone. Lungs remain quite congested. Enteral nutrition tolerated. 05/05: No improvement in neuro status. Moves left arm spontaneously. Flaccid right side. Unresponsive. Persistent mild hypoglycemia - will cut Levemir 50%. Abdomen more distended, check KUB. 05/06: CT head with massive left MCA infarction and > 1 cm shift in right handed woman. She opens eyes, does not track. 05/07: Patient open eyes. Attempts to respond. Chinese speaking. Tolerating tube feeds. Positive bowel movement. Volume overloaded. 05/08: Tmax 99.4. Potassium being replaced. Ultrasound gallbladder currently pending. Transaminases are trending downward. Gently diurese. 05/09: Alk phos decreasing. Remains with good urine output. Neurological status not improving. 05/10: Fixed neuro deficit unchanged. Profound CVA. 05/11: Appears to track with eyes today. No improvement in motor function. Remains very edematous, diuretics doubled. 05/12: Continued thick secretions. Afebrile, leukocytosis resolved. 05/13: CT head with completed left MCA stroke, persistent edema and 5 mm shift away. Does not last long on SBTs - major decision now is trach/PEG. 05/14: Daughter has decided to proceed with trach and PEG. I have been pessimistic with her about chances for a meaningful recovery. 05/15: Plan for trach today. No change in neuro status. Still ventilator dependent. 05/16: Trach completed. Await PEG and disposition. 05/17: PEG placed 05/16. Start TFs today after nutrition consult. Work to place patient. 05/18: No improvement. Does open eyes, no focus or tracking. Completed large dominant (left) hemisphere CVA in right handed woman with severe deficit. Medicaid pending status, [facility] is following. 05/19: no improvements in neuro exam. ready for LTAC. will d/c moser and rectal tubes. 05/20: no changes or improvements. very difficult placement due to patient not [place] citizen. 05/21: no improvements. resting on vent overnight due to distress. 05/22: no neurologic changes. no improvements. attempted T-piece which failed after 10 minutes. 05/23: no improvements. poor prognosis. poor neuro exam. still failing weaning trials. 05/24: no improvements or changes. still failing t-piece trials. 05/25: No acute changes of improvement overnight. Failed CPAP due to apnea, tried again currently tolerating. Neurological exam unchanged. 05/26: No improvement in neurological function. 05/27: Patient has required Moser catheter because of breakdown of skin on upper thighs and groin. Urine has become infected, will treat. 05/28: Some drainage from around trach (placed 2 weeks ago). Will change out trach tube and inspect neck wound. I&O straight cath q6h order entered 05/17. 05/29: No improvement, remains obtunded. Failed CPAP trials yesterday and again today due to apnea. Moser placed due to persistent urinary retention 05/30: Obtunded, unresponsive. Failed SBTs, remains ventilator dependent. 05/31: Patient continues to fail SBT failed yesterday due to apnea. Neuro exam remains unchanged. 06/01: No acute changes overnight, 06/02: no changes. ekg done overnight for ? EKG changes seen on telemetry which were not visualized on EKG. 06/03: no improvements or changes. had long conversation with daughter yesterday. only facility which would accept patient is in [place] and daughter is refusing to allow patient to go there because it is "too far away." Daughter continues to push for aggressive care despite no improvements, and resistant to Hospice. Patient does not need acute inpatient therapy but lacks funding for appropriate disposition. 06/04: No acute events overnight, failed SBT due to apnea. 06/05: No acute events, continues to fail spontaneous breathing trials. Unable to wean 06/06 Currently tolerating CPAP. Will attempt TP today up to 4 hours. No acute events overnight 06/07: Tolerating trach collar/T-piece. Transfer soon. 06/08: Awaiting transfer. 06/09: Remains ventilator dependent. No improvement in neurological function. 06/10: No improvement. Daughter is not attending preplanned meetings to discuss disposition 06/12: Afebrile. Neurologically stable and unchanged. Noted sodium 135. Adding sodium chloride tablets 1 today. Not on free water.. Tolerating tube feeds at goal 45 cc an hour. 06/13: No improvement in neurological function. 06/14: No improvement. Fluid balance correct. Gas exchange acceptable. 06/15: No improvement. Obtunded and unresponsive. 06/16: no improvements in mental status. KUB overnight with dilated small bowel loops. given methylnaltrexone and erythromycin. today abdomen is soft and tolerating tube feeds. 06/17: tolerated t-piece x 6 hours yesterday. rested on cpap overnight. no changes in encephalopathy. 06/18: Currently on ventilator overnight. Multiple bowel movements. Thick yellow secretions noted in ventilator circuit. Opens eyes. 06/19: Afebrile. Tolerating stretcher chair yesterday on PSV. Tolerating tube feeding. Neurologically unchanged. 06/20: Afebrile. Resting in bed in no acute distress in sitting position. Currently on ventilator set sitting. Tolerated stretcher chair/PSV trial 6 hours yesterday. Neurologically unchanged. 06/21: Tmax 100.8. Patient with copious thick yellow secretions. Tolerating tube feeds. Positive bowel movement. Lasted only 1 hour PSV yesterday 06/22: Tmax 99.9. Continues to have thick secretions. Tolerating tube feeding. Positive BM. 06/23: Afebrile. Continues to have thick tracheal secretions from tracheostomy site. Tolerating tube feeding. 3 bowels movements. Opens eyes to stimulation. Stares at you but does not follow commands. 06/24: Remains encephalopathic, on mechanical ventilation via tracheostomy. Tolerating PEG feeds 06/25: Remains encephalopathic on mechanical ventilation. Tolerated C Pap +5 with pressure support +10 all day yesterday. Tolerating PEG feeds. 06/26: No improvement.Vent dependent still. 06/27: Remains encephalopathic, on mech vent via trach. Daily CPAP trials. 06/28: Unable to wean from ventilator. 06/29: Neurologically unchanged. Remains on mechanical ventilation. Daily C Pap trials ongoing. 06/30: Remains encephalopathic. On C Pap overnight. Tolerating tube feeds. 07/01: No change in neurologic status. On mechanical ventilation via tracheostomy. Tolerating tube feeds. 07/02: Remains encephalopathic. No change in neurologic status. On mechanical ventilation via tracheostomy. Daily C Pap trials ongoing. 07/03: Occasional spontaneous eye opening however remains encephalopathic. On mechanical ventilation via tracheostomy. 07/04: Tmax 99.2. Multiple bowel movements overnight. Tolerating tube feeds. On T piece trial at 5 L since noon yesterday. Otherwise neurologically unchanged. Daughter encouraged by movement of left leg. 07/05: Currently resting in bed on T piece 36 hours. Tolerates chair. No changes neurologically. Positive BM's. Tolerating her tube feeding. 07/06: Continue T-piece trials, if tolerated consider transfer to floor. 07/07: Extended T-piece trial. Plan transfer to floor. 07/09: Patient is experiencing apnea episodes and had to be placed back on higher FiO2.. Hold transfer. 07/10: X-ray left hip shows good anatomic alignment. Still requiring elevated FiO2. 07/11: Prealbumin 20, nutritional support is adequate and status is stable. No neurological improvement. 07/12: No improvement in neurological function. Continued acceptable respiratory effort. 07/13: No change. Subjective 10/03/17 Dr. Rizo notified branch operations coordinator that patient would be transferring to ICU. Patient is known to [facility] service. She was originally admitted 04/20/17 after a fall with hip fracture resulting in ORIF 04/21. Postoperatively, she developed large R MCA stroke with midline shift. Her neurologic condition remained poor and she underwent trach 05/15/17 and PEG 05/16/17. She was eventually transitioned to Tpiece and transferred to floor. She has suffered from multiple infectious complications due to her persistent bedfast and trach dependent state. 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 She has been on trach collar with worsening hypoxemia therefore she is transferred to [facility] [place]. CXR from yesterday demonstrates bilateral pulmonary infiltrates. She has also had hyperkalemia today up to 6.7 which has been treated with kayexalate, down to 6. 2/3: improvement in air space disease with diuresis and bronch yesterday. no overall improvements in chronic poor prognosis. unlikely to survive this hospital stay. daughter has poor insight into the gravity of her mother's medical condition. she will not recover meaningfully. 2: continuing to clinically improve from a respiratory standpoint. no improvements in overall poor function. off vent on t-piece today. can likely transition out of ICU tomorrow. 2 No events overnight. Remains on ventilator via trach. Afebrile. Objective Vital Signs Date Time Temp Pulse Resp B/P (MAP) Pulse Ox O2 Delivery O2 Flow Rate FiO2 10/06/17 07:44 97 30 10/06/17 06:00 78 10/06/17 04:00 99.3 18 140/63 (88) 10/05/17 09:35 T-piece 6.00 Intake and Output 10/06/17 10/06/17 10/07/17 08:00 16:00 00:00 Intake Total 475 ml Output Total 800 ml Balance -325 ml Result Diagram: 10/04/17 0440 10/04/17 0440 Imaging Last Impressions Chest X-Ray 10/04/17 0900 Signed Impressions: Service Date/Time: Wednesday, October 04, 2017 08:53 - CONCLUSION: Significant improvement with almost complete resolution of bilateral airspace disease. Benja Ramsey MD Thoracentesis 08/05/17 7709 Signed Impressions: Service Date/Time: Saturday, August 05, 2017 16:08 - CONCLUSION: Uncomplicated CT-guided thoracentesis. Sage Adler MD Chest Ultrasound 08/02/17 0000 Signed Impressions: Service Date/Time: Tuesday, August 01, 2017 22:06 - CONCLUSION: 1. Moderate right pleural effusion, as above. Alejo De La Vega MD Hip and Pelvis X-Ray 07/09/17 0000 Signed Impressions: Service Date/Time: Sunday, July 09, 2017 14:04 - CONCLUSION: Anatomic alignment. Ricardo Middleton MD FACR Liver Ultrasound 06/19/17 0000 Signed Impressions: Service Date/Time: June 13:20 - CONCLUSION: 1. Mildly increased echotexture of the liver characteristic of hepatic steatosis. 2. Gallbladder sludge. Obdulio Sam MD Abdomen X-Ray 06/16/17 0000 Signed Impressions: Service Date/Time: Friday, June 16, 2017 04:48 - CONCLUSION: 1. Continued small bowel ileus. There has been no significant change when compared to the prior exam. Toy Duran MD Head CT 05/15/17 0000 Signed Impressions: Service Date/Time: May 19:59 - CONCLUSION: 1. 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 2. No bleed or new/acute infarct. Obdulio Simms MD Gall Bladder Ultrasound 05/08/17 0000 Signed Impressions: Service Date/Time: May 08:23 - CONCLUSION: Focally unremarkable appearance of the gallbladder Obdulio Chun MD Abdomen/Pelvis CT 05/07/17 0000 Signed Impressions: Service Date/Time: Sunday, May 07, 2017 13:23 - CONCLUSION: 1. Large left pneumothorax. 2. Bilateral lower lobe consolidation and bilateral moderate size pleural effusions. 3. Significant soft tissue thickening of the right lateral chest wall and left gluteus muscle. 4. Mild ascites. The findings were called to Dr. Carney. Deangelo Zamora MD Chest CT 04/30/17 0000 Signed Impressions: Service Date/Time: Sunday, April 30, 2017 09:20 - CONCLUSION: 1. Bilateral pulmonary infiltrates more pronounced within the lower lobes with tiny bilateral pleural effusions. Material seen filling the lower lobe bronchi bilaterally either related to purulent material or perhaps mucus plugging. eDangelo Wren Jr., MD Carotid Artery Ultrasound 04/24/17 0000 Signed Impressions: Service Date/Time: April 09:45 - CONCLUSION: 1. No hemodynamically significant carotid artery stenosis. rAnie Middleton MD Hip X-Ray 04/21/17 0000 Signed Impressions: Service Date/Time: Friday, April 21, 2017 11:36 - CONCLUSION: Fluoroscopic images during placement of intramedullary siomara left femur. Benja Ramsey MD Objective Remarks GENERAL: Elderly female who is laying in [facility] [place] bed on trach collar SKIN: Warm and dry, adequately perfused. HEAD: Atraumatic. Normocephalic. mucous membranes moist. NECK: 8.[address] Trachea midline[address] No JVD. CARDIOVASCULAR: Regular rate and rhythm, sinus on the monitor. RESPIRATORY: unlabored. no accessory muscle use. trach collar. GASTROINTESTINAL: Abdomen soft, non-tender, nondistended. PEG in place with tube feeds running, site benign appearing. MUSCULOSKELETAL: Extremities without clubbing, cyanosis, or edema. No obvious deformities. NEUROLOGICAL: Eyes open spontaneously, does not appear to track. L gaze preference. R hemiparesis. Localizes with LUE. Very slight withdrawal of LLE to noxious stimuli. A/P Assessment and Plan Neuro/Psych: Left MCA CVA - 5.5 mm of [id number] subfalcine herniation, diagnosed 04/24. Persistent right-sided hemiparesis. Prior History of stroke Continue Aspirin 325 mg by tube daily. Stroke occurred 04/24/17. Patient was not a candidate for thrombolysis per discussion with neurology and radiology at that time. Repeat head CT 05/15 showed slight improvement in the midline shift now 5.5 mm and mass effect Neurosurgery consulted 04/30- Dr. López, recommended conservative management, now signed off. Neurology Dr. Malave has followed previously, signed off. Cardiovascular: Hypertension Norvasc 10 mg po daily, Cardura 1 mg peg daily, metoprolol 12.5 peg bid, hydralazine 10 mg per per peg q8 hours. clonidine prn SBP >160 Echo showed EF 25-30%, Grade I diastolic disfunction Pulmonary: Chronic Tracheostomy Now recurrent Acute hypoxemic respiratory failure Acute hypoxic respiratory failure - aspiration possible HCAP - previous episode resolved. Large left pneumothorax status post #10 Somali chest tube 05/07 - resolved.Chest tube d/c'd 05/12/17 R pleural effusion - Continue with vent support keep sat >92% Ipratropium/albuterol aerosols every 6 hours with albuterol aerosols every 2 hours Pulm toilet, trach care Pulm is following GI/liver: Elevated transaminases, resolved Severe protein calorie malnutrition Small bowel ileus- resolved Hepatitis C antibody positive with negative genotype/viral load Hepatic steatosis Currently on PEG tube feeding with Glucerna 1.5 goal 45 cc an hour. Beneprotein tid. Lansoprazole 30 mg daily for GI regimen Docusate sodium 100 mg twice a day for bowel regimen can be held while on kayexalate. Endocrine: Diabetes mellitus SSI low-dose every 6 hours /Renal/FEN: Monitor renal function. I/O's, electrolytes replacement as needed d/c Lasix. Check BMP Heme: Chronic Rivaroxaban use prior to admission Leukocytosis Normocytic anemia Follow CBC and coags. ID: MDR Pseudomonas aeruginosa and pneumonia (HCAP) MSSA bacteremia - resolved. Serratia/staph aureus pneumonia - resolved. C glabrata UTI - resolved. Citrobacter UTI - resolved. Serratia/MSSA sputum VAP resolved Current relevant cultures: 09/25/17 -sputum culture - Pseudomonas aeruginosa, multidrug resistant ( including Zerbaxa and Avycaz resistance). On Colistin nebs started 09/30 #4. Per ID, Dr. Ranjan Saleh Prior cultures: Urine culture 04/26/17 sofie glabrata Blood culture 04/29/17 1 out of 4 bottles staph aureus Sputum culture 04/30/17 MSSA and Serratia. urine 05/07-> Serratia, treated. Urine 05/25: Citrobacter MSK: Left Intertroch Hip Fx s/p IMN 04/21/17. Vitamin D deficiency Sacral decubitus ulcer, Previously stage III, healing. Continue calcium vitamin D 250/125 one tablet 3x a day and cholecalciferol 5000 units daily. PT/OT evaluate and treat Maxsorb every 3 days/dressing changes every 3 days per wound care Continue bene protein one packet 3x a day Prophylaxis: SCDs. Heparin 5000 subcut q8 hours. GI - lansoprazole 30 mg by PEG tube daily ACCESS: PIV. Will sign off and transfer care to [facility] Level 2 Kristel Durant MD Oct 06, 2017 10:59
[2017-10-06 12:52] LABS: BASOPHIL % 0.4 % (0.0-2.0); EOSINOPHIL # 0.2 TH/MM3 (0-0.4); EOSINOPHIL % 2.8 % (0.0-4.0); HEMATOCRIT 28.5 % (35.0-46.0); HEMOGLOBIN 10.1 GM/DL (11.6-15.3); LYMPH % 23.4 % (9.0-44.0); LYMPHOCYTE # 1.9 TH/MM3 (1.0-4.8); MEAN CELL VOLUME 94.3 FL (80.0-100.0); MEAN CORPUSCULAR HEMOGLOBIN 33.3 PG (27.0-34.0); MEAN CORPUSCULAR HGB CONC 35.3 % (32.0-36.0); MEAN PLATELET VOLUME 9.7 FL (7.0-11.0); MONO % 0.8 % (0.0-8.0); MONOCYTE # 0.1 TH/MM3 (0-0.9); NEUT % 72.6 % (16.0-70.0); PLATELET COUNT 202 TH/MM3 (150-450); RED BLOOD COUNT 3.03 MIL/MM3 (4.00-5.30); RED CELL DISTRIBUTION WIDTH 15.5 % (11.6-17.2); WHITE BLOOD COUNT 8.2 TH/MM3 (4.0-11.0)
[2017-10-06 13:09] LABS: BICARBONATE 27.1 MEQ/L (21.0-32.0); CALCIUM 8.8 MG/DL (8.5-10.1); CREATININE 0.69 MG/DL (0.50-1.00); MAGNESIUM 1.9 MG/DL (1.5-2.5)
--- NOTE | 2017-10-06 13:31 | ECHRPT ---
Indication: EF ASSESSMENT OF CHF CONCLUSIONS BP: 148 / 63 HR: 80 Rhythm: Atrial flutter MEASUREMENTS (Male / Female) Normal Values Technical Quality:Fair 2D ECHO LV Ejection Fraction MOD BP 25.6 % >= 55 % LV Cardiac Index MOD BP 1194.3 cm/minm LV Ejection Fraction MOD 4C 28.6 % LV Cardiac Index MOD 4C 1350.1 cm/minm LV Ejection Fraction 4C AL 30.3 % LV Cardiac Index 4C AL 1471.9 cm/minm LV Ejection Fraction MOD 2C 20.7 % LV Cardiac Index MOD 2C 934.7 cm/minm LV Ejection Fraction 2C AL 21.2 % LV Cardiac Index 2C AL 971.7 cm/minm FINDINGS LEFT VENTRICLE The left ventricular systolic function is severely reduced with an estimated ejection fraction in th e range of 25-30%. Doppler parameters are consistent with impaired left ventricular relaxtion (grade 1 diastolic dysfun ction). There is diffuse global hypokinesis with distinct regional wall motion abnormalities. Normal left ventricular size. Wall thickness is normal. Mid anterolateral, apical, and inferoapical akinesis. Cannot rule out apical thrombus althoug it no thrombus was visualized. May consider EFRAIN or contrast enhanced TTE for evaluation. RIGHT VENTRICLE Normal right ventricular size and systolic function. LEFT ATRIUM The left atrial size is normal. RIGHT ATRIUM The right atrial size is normal. ATRIAL SEPTUM Normal atrial septal thickness without atrial level shunting by limited color doppler interrogation. AORTA The aortic root and proximal ascending aorta are normal in size on limited imaging. MITRAL VALVE Mitral annular calcification is present. No mitral valve stenosis. Trace mitral valve regurgitation. AORTIC VALVE Trileaflet aortic valve. No aortic valve stenosis or regurgitation. TRICUSPID VALVE Structurally normal tricuspid valve. No tricuspid valve stenosis or regurgitation. PULMONARY VALVE The pulmonary valve is not well visualized. VESSELS The inferior vena cava is normal in size. PERICARDIUM No pericardial effusion. Elliott Lee MD, FACC (Electronically Signed) Final Date:06 October 2017 13:30
--- NOTE | 2017-10-06 21:30 | HHI.PR ---
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 no fever Weekend events noted [facility] CXR much improved Objective Vital Signs Vital Signs Date Time Temp Pulse Resp B/P (MAP) Pulse Ox O2 Delivery O2 Flow Rate FiO2 10/06/17 21:26 98 30 10/06/17 16:00 98.1 89 20 128/45 (72) 99 10/06/17 16:00 30 10/06/17 15:57 99 30 10/06/17 13:28 99 30 10/06/17 12:00 97.9 87 18 125/66 (85) 99 10/06/17 12:00 30 10/06/17 12:00 87 10/06/17 11:55 99 100 10/06/17 11:41 99 30 10/06/17 10:00 85 10/06/17 08:00 98.7 76 18 118/58 (78) 99 10/06/17 08:00 30 10/06/17 08:00 76 10/06/17 07:44 97 30 10/06/17 06:00 78 10/06/17 04:02 95 30 10/06/17 04:00 99.3 80 18 140/63 (88) 94 10/06/17 04:00 80 10/06/17 04:00 30 10/06/17 02:00 74 10/06/17 01:35 98 30 10/06/17 00:00 75 10/06/17 00:00 98.5 75 18 124/60 (81) 97 10/06/17 00:00 30 10/05/17 22:30 96 30 10/05/17 22:00 74 I/O 10/05/17 10/05/17 10/05/17 10/06/17 10/06/17 10/06/17 07:00 15:00 23:00 07:00 15:00 23:00 Intake Total 815 ml 72 ml 692 ml 475 ml Output Total 1360 ml 540 ml 800 ml Balance -545 ml 72 ml 152 ml -325 ml IV Total 120 ml 72 ml Tube Feeding 495 ml 492 ml 475 ml Other 200 ml 200 ml Output Urine Total 1300 ml 500 ml 500 ml Stool Total 60 ml 40 ml 300 ml # Bowel Movements 1 Result Diagram: 10/06/17 1130 10/06/17 1140 Objective Remarks GENERAL: Elderly female,NAD SKIN: Warm and dry. HEAD: Normocephalic. EYES: No scleral icterus. No injection or drainage. NECK: Supple, trachea midline. No JVD or lymphadenopathy. CARDIOVASCULAR: Regular rate and rhythm without murmurs, gallops, or rubs. RESPIRATORY: Breath sounds equal bilaterally. No accessory muscle use. GASTROINTESTINAL: Abdomen soft, non-tender, nondistended. MUSCULOSKELETAL: No cyanosis, or edema. BACK: Nontender without obvious deformity. No CVA tenderness. A/P Assessment and Plan RF,S/P Trach CVA Pneumonia Pleural effusion Pseudomonas Tracheobronchitis, Hyperkalemia Hypoxia PLAN: Vent support Aerosol nebs Supplement 02 TF Mucomyst Nebs Abx per ID LAI RN at Chris Rizo MD Oct 06, 2017 21:30
[2017-10-06] MEDS: RESP: ALBUTEROL 2.5 MG/3 ML NEB (PRN) NEB (23:25)
[2017-10-07] VITALS (11 sets, daily range): BP systolic 111–145; BP diastolic 45–73; PULSE 60–71; RESP 16–22; TEMP 98.2–98.9; O2SAT 97–99
[2017-10-07] MEDS: INSULIN ASPART SUPPLEMENTAL SCALE SQ SCH ×4 (00:55→17:14)
[2017-10-07] MEDS: ARTIFICIAL TEARS OPTH SOLN 15 ML BTL EACH EYE SCH ×3 (06:00→21:13)
[2017-10-07] MEDS: hydrALAZINE HCL 10 MG TAB PEG SCH ×3 (06:20→21:12)
[2017-10-07] MEDS: HEPARIN SODIUM - SQ 10,000 UNITS/ML VIAL SQ SCH ×3 (06:20→21:12)
[2017-10-07] MEDS: RESP: ALBUTEROL 2.5 MG/IPRATROPIUM 0.5 MG NEB (PRN) NEB ×2 (07:12→15:37)
[2017-10-07] MEDS: CHLORHEXIDINE 0.12% (ORAL KIT) 15 ML CUP MT SCH ×2 (08:00→20:00)
[2017-10-07] MEDS: CALCIUM/VITAMIN D 250 MG/125 U TAB PEG SCH ×3 (08:41→17:13)
[2017-10-07] MEDS: LACTOBACILLUS ACIDOPHILUS TAB PEG SCH ×2 (08:42→21:12)
[2017-10-07] MEDS: LANSOPRAZOLE SOLUTAB 30 MG TAB NG SCH (08:42)
[2017-10-07] MEDS: METOPROLOL TARTRATE 25 MG TAB PEG SCH ×2 (08:42→21:12)
[2017-10-07] MEDS: ASPIRIN 325 MG TAB DOBHOFF SCH (08:42)
[2017-10-07] MEDS: SODIUM CHLORIDE 0.9% FLUSH 5 ML FLUSH IV FLUSH SCH ×2 (08:42→21:00)
[2017-10-07] MEDS: CHOLECALCIFEROL (VIT D3) 5000 UNIT CAP PEG SCH (08:42)
[2017-10-07] MEDS: DOXAZOSIN MESYLATE 1 MG TAB PEG SCH (08:42)
[2017-10-07 09:42] LABS: AUTOMATED NEUTROPHIL # 5.3 TH/MM3 (1.8-7.7); BASOPHIL # 0.1 TH/MM3 (0-0.2); BASOPHIL % 1.2 % (0.0-2.0); EOSINOPHIL # 0.4 TH/MM3 (0-0.4); EOSINOPHIL % 4.8 % (0.0-4.0); HEMATOCRIT 28.5 % (35.0-46.0); HEMOGLOBIN 9.8 GM/DL (11.6-15.3); LYMPH % 24.8 % (9.0-44.0); LYMPHOCYTE # 2.2 TH/MM3 (1.0-4.8); MEAN CORPUSCULAR HEMOGLOBIN 32.9 PG (27.0-34.0); MEAN CORPUSCULAR HGB CONC 34.3 % (32.0-36.0); MEAN PLATELET VOLUME 8.9 FL (7.0-11.0); MONO % 9.4 % (0.0-8.0); MONOCYTE # 0.8 TH/MM3 (0-0.9); NEUT % 59.8 % (16.0-70.0); PLATELET COUNT 344 TH/MM3 (150-450); RED BLOOD COUNT 2.97 MIL/MM3 (4.00-5.30); RED CELL DISTRIBUTION WIDTH 15.4 % (11.6-17.2); WHITE BLOOD COUNT 8.8 TH/MM3 (4.0-11.0)
[2017-10-07 10:10] LABS: BANDS 13 % (0-6); LYMPHOCYTES 14 % (9-44); MONOCYTES 6 % (0-8); NEUTROPHIL # MANUAL DIFF 6.7 TH/MM3 (1.8-7.7); POLYS (SEG NEUTROPHILS) 63 % (16-70)
[2017-10-07 10:20] LABS: BICARBONATE 31.4 MEQ/L (21.0-32.0); CREATININE 0.72 MG/DL (0.50-1.00)
--- NOTE | 2017-10-07 10:34 | HHI.PR ---
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 murtaza Jackson that is not how we treat the pulm infections she has. Renetta reports to me patients daughter was not nice to her. I tried calling the patients daughter several times to discuss this further but no response message box not accepting message. Will murtaza Steven with Palliative care: Plasmapheresis is not a standard way of treating pneumonia. She is on colistin nebs, Xray improved with bronchoscopy and colistin nebs. I will follow prn. Continue Colistin nebs for 2- 3 weeks period. Please call back sooner if any change in clinical condition or questions. Jane Saleh MD Oct 07, 2017 10:34
--- NOTE | 2017-10-07 10:42 | HHI.CCPN ---
Subjective Remarks/Hospital Course 04/24: 76-year-old female with a medical history significant for prior stroke, diabetes mellitus who was admitted with DKA and a hip fracture for which she underwent ORIF on 04/21. Patient developed altered mental status and was last noted to be okay around 5:30 AM. Subsequently there was a change in her mental status and she was noted to not be moving her right side for which stroke alert was called. Head CT showed large left MCA territory ischemic infarct with edema. Patient was transferred to the ICU by family medicine service in the critical care consult was requested. I evaluated the patient following arrival to the ICU. At that time she was laying in bed with her eyes open however not following commands and had a dense right hemiplegia. Patient was also evaluated by Dr. Malave from neurology. [facility] further discussed current event with patient's daughter following her arrival to the ICU. Per the daughter patient has been living with her since her stroke in 2014 and does ambulate however has been having problems with memory and incontinence as well as gait difficulties. She does not feel patient would want intubation or tracheostomy or PEG tube. 04/25: Patient remains encephalopathic, awake though not following commands consistently. Dense right hemiplegia persists. Appears to be awake enough to protect airway currently. Patient's daughter rescinded DNR and made a full code last evening. 04/26: Remains encephalopathic, not following commands. On Dobbhoff for tube feeds at 30 cc per hour. Had urinary retention and drained 2 L of urine after placing Moser catheter today. CT head done this morning with large left MCA territory infarct with left to right midline shift and significant cerebral edema. Hyperglycemia noted. Patient given mannitol earlier for increasing cerebral edema. 04/27: Remains encephalopathic, not following commands. On Dobbhoff tube feeds at 30 cc per hour. When into A. fib with RVR last night which responded with Lopressor 5 mg IV 1 dose. 04/28: Remains encephalopathic, arousable, not following commands. Moves left upper extremity spontaneously. Tolerating Dobbhoff tube feeds. Remains on nasal cannula. 04/29: Encephalopathic, eyes be arousable, moves left upper extremity spontaneously and occasionally opens eyes. Dense right hemiplegia and aphasia persists. On nasal cannula. Dobbhoff tube feeds being advanced. Patient was transfused 1 unit PRBCs yesterday. Urine culture with yeast from yesterday for which fluconazole being started. Had brief run of A. fib with RVR which improved with Lopressor IV, currently in sinus rhythm. 04/30: Worsening hypoxemic respiratory failure, currently on partial nonrebreather. Remains lethargic. WBC count increased from 14.6 today 20.7. Chest x-ray shows bilateral worsening infiltrates and small pleural effusions. Sodium 154, weight up by 8 KG. Albumin 1 mg Bumex 1. Also one dose of albumin. Remains in sinus tachycardia. Tmax 101.3 05/01: Patient was intubated yesterday for lack of airway protection, and severe hypoxemic respiratory failure from aspiration pneumonia involving multiple lobes. Patient is on the vent lethargic, no spontaneous eye opening. Chest x- ray remains unchanged. Remains intermittently febrile Tmax 101.3. WBC count improving 05/02: Remains critically ill with no improvement in mental status. Spiking fever of 101.7. Blood culture and sputum culture with staph aureus sputum also growing GNR, WBC count 22,000 now indicating worsening sepsis. Daughter still requesting aggressive care. Palliative care is following 05/03: S/P large area dominant hemisphere CVA. No neurological improvement. Now with pneumonia (infiltrate, fever, leukocytosis) and appropriate abx coverage. She will have a hard time surviving the hip fx, CVA, and pneumonia. Palliative Care needs to be a mainstay of our plan. 05/04: No improvement in neuro status. Sputum C&S allows us to narrow abx coverage to levaquin alone. Lungs remain quite congested. Enteral nutrition tolerated. 05/05: No improvement in neuro status. Moves left arm spontaneously. Flaccid right side. Unresponsive. Persistent mild hypoglycemia - will cut Levemir 50%. Abdomen more distended, check KUB. 05/06: CT head with massive left MCA infarction and > 1 cm shift in right handed woman. She opens eyes, does not track. 05/07: Patient open eyes. Attempts to respond. Gren[place] speaking. Tolerating tube feeds. Positive bowel movement. Volume overloaded. 05/08: Tmax 99.4. Potassium being replaced. Ultrasound gallbladder currently pending. Transaminases are trending downward. Gently diurese. 05/09: Alk phos decreasing. Remains with good urine output. Neurological status not improving. 05/10: Fixed neuro deficit unchanged. Profound CVA. 05/11: Appears to track with eyes today. No improvement in motor function. Remains very edematous, diuretics doubled. 05/12: Continued thick secretions. Afebrile, leukocytosis resolved. 05/13: CT head with completed left MCA stroke, persistent edema and 5 mm shift away. Does not last long on SBTs - major decision now is trach/PEG. 05/14: Daughter has decided to proceed with trach and PEG. I have been pessimistic with her about chances for a meaningful recovery. 05/15: Plan for trach today. No change in neuro status. Still ventilator dependent. 05/16: Trach completed. Await PEG and disposition. 05/17: PEG placed 05/16. Start TFs today after nutrition consult. Work to place patient. 05/18: No improvement. Does open eyes, no focus or tracking. Completed large dominant (left) hemisphere CVA in right handed woman with severe deficit. Medicaid pending status, [facility] is following. 05/19: no improvements in neuro exam. ready for LTAC. will d/c moser and rectal tubes. 05/20: no changes or improvements. very difficult placement due to patient not [place] citizen. 05/21: no improvements. resting on vent overnight due to distress. 05/22: no neurologic changes. no improvements. attempted T-piece which failed after 10 minutes. 05/23: no improvements. poor prognosis. poor neuro exam. still failing weaning trials. 05/24: no improvements or changes. still failing t-piece trials. 05/25: No acute changes of improvement overnight. Failed CPAP due to apnea, tried again currently tolerating. Neurological exam unchanged. 05/26: No improvement in neurological function. 05/27: Patient has required Moser catheter because of breakdown of skin on upper thighs and groin. Urine has become infected, will treat. 05/28: Some drainage from around trach (placed 2 weeks ago). Will change out trach tube and inspect neck wound. I&O straight cath q6h order entered 05/17. 05/29: No improvement, remains obtunded. Failed CPAP trials yesterday and again today due to apnea. Moser placed due to persistent urinary retention 05/30: Obtunded, unresponsive. Failed SBTs, remains ventilator dependent. 05/31: Patient continues to fail SBT failed yesterday due to apnea. Neuro exam remains unchanged. 06/01: No acute changes overnight, 06/02: no changes. ekg done overnight for ? EKG changes seen on telemetry which were not visualized on EKG. 06/03: no improvements or changes. had long conversation with daughter yesterday. only facility which would accept patient is in [place] and daughter is refusing to allow patient to go there because it is "too far away." Daughter continues to push for aggressive care despite no improvements, and resistant to Hospice. Patient does not need acute inpatient therapy but lacks funding for appropriate disposition. 06/04: No acute events overnight, failed SBT due to apnea. 06/05: No acute events, continues to fail spontaneous breathing trials. Unable to wean 06/06 Currently tolerating CPAP. Will attempt TP today up to 4 hours. No acute events overnight 06/07: Tolerating trach collar/T-piece. Transfer soon. 06/08: Awaiting transfer. 06/09: Remains ventilator dependent. No improvement in neurological function. 06/10: No improvement. Daughter is not attending preplanned meetings to discuss disposition 06/12: Afebrile. Neurologically stable and unchanged. Noted sodium 135. Adding sodium chloride tablets 1 today. Not on free water.. Tolerating tube feeds at goal 45 cc an hour. 06/13: No improvement in neurological function. 06/14: No improvement. Fluid balance correct. Gas exchange acceptable. 06/15: No improvement. Obtunded and unresponsive. 06/16: no improvements in mental status. KUB overnight with dilated small bowel loops. given methylnaltrexone and erythromycin. today abdomen is soft and tolerating tube feeds. 06/17: tolerated t-piece x 6 hours yesterday. rested on cpap overnight. no changes in encephalopathy. 06/18: Currently on ventilator overnight. Multiple bowel movements. Thick yellow secretions noted in ventilator circuit. Opens eyes. 06/19: Afebrile. Tolerating stretcher chair yesterday on PSV. Tolerating tube feeding. Neurologically unchanged. 06/20: Afebrile. Resting in bed in no acute distress in sitting position. Currently on ventilator set sitting. Tolerated stretcher chair/PSV trial 6 hours yesterday. Neurologically unchanged. 06/21: Tmax 100.8. Patient with copious thick yellow secretions. Tolerating tube feeds. Positive bowel movement. Lasted only 1 hour PSV yesterday 06/22: Tmax 99.9. Continues to have thick secretions. Tolerating tube feeding. Positive BM. 06/23: Afebrile. Continues to have thick tracheal secretions from tracheostomy site. Tolerating tube feeding. 3 bowels movements. Opens eyes to stimulation. Stares at you but does not follow commands. 06/24: Remains encephalopathic, on mechanical ventilation via tracheostomy. Tolerating PEG feeds 06/25: Remains encephalopathic on mechanical ventilation. Tolerated C Pap +5 with pressure support +10 all day yesterday. Tolerating PEG feeds. 06/26: No improvement.Vent dependent still. 06/27: Remains encephalopathic, on mech vent via trach. Daily CPAP trials. 06/28: Unable to wean from ventilator. 06/29: Neurologically unchanged. Remains on mechanical ventilation. Daily C Pap trials ongoing. 06/30: Remains encephalopathic. On C Pap overnight. Tolerating tube feeds. 07/01: No change in neurologic status. On mechanical ventilation via tracheostomy. Tolerating tube feeds. 07/02: Remains encephalopathic. No change in neurologic status. On mechanical ventilation via tracheostomy. Daily C Pap trials ongoing. 07/03: Occasional spontaneous eye opening however remains encephalopathic. On mechanical ventilation via tracheostomy. 07/04: Tmax 99.2. Multiple bowel movements overnight. Tolerating tube feeds. On T piece trial at 5 L since noon yesterday. Otherwise neurologically unchanged. Daughter encouraged by movement of left leg. 07/05: Currently resting in bed on T piece 36 hours. Tolerates chair. No changes neurologically. Positive BM's. Tolerating her tube feeding. 07/06: Continue T-piece trials, if tolerated consider transfer to floor. 07/07: Extended T-piece trial. Plan transfer to floor. 07/09: Patient is experiencing apnea episodes and had to be placed back on higher FiO2.. Hold transfer. 07/10: X-ray left hip shows good anatomic alignment. Still requiring elevated FiO2. 07/11: Prealbumin 20, nutritional support is adequate and status is stable. No neurological improvement. 07/12: No improvement in neurological function. Continued acceptable respiratory effort. 07/13: No change. Subjective 10/03/17 Dr. Rizo notified senior policy analyst that patient would be transferring to ICU. Patient is known to [facility] service. She was originally admitted 04/20/17 after a fall with hip fracture resulting in ORIF 04/21. Postoperatively, she developed large R MCA stroke with midline shift. Her neurologic condition remained poor and she underwent trach 05/15/17 and PEG 05/16/17. She was eventually transitioned to Tpiece and transferred to floor. She has suffered from multiple infectious complications due to her persistent bedfast and trach dependent state. 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 She has been on trach collar with worsening hypoxemia therefore she is transferred to [facility]. CXR from yesterday demonstrates bilateral pulmonary infiltrates. She has also had hyperkalemia today up to 6.7 which has been treated with kayexalate, down to 6. 2/3: improvement in air space disease with diuresis and bronch yesterday. no overall improvements in chronic poor prognosis. unlikely to survive this hospital stay. daughter has poor insight into the gravity of her mother's medical condition. she will not recover meaningfully. 10/05: continuing to clinically improve from a respiratory standpoint. no improvements in overall poor function. off vent on t-piece today. can likely transition out of ICU tomorrow. 10/06 No events overnight. Remains on ventilator via trach. Afebrile. 10/07 No events overnight. Afebrile. Objective Vital Signs Date Time Temp Pulse Resp B/P (MAP) Pulse Ox O2 Delivery O2 Flow Rate FiO2 10/07/17 08:00 30 10/07/17 08:00 71 10/07/17 08:00 98.4 20 135/70 (91) 99 10/05/17 09:35 T-piece 6.00 Intake and Output 10/07/17 10/07/17 10/08/17 08:00 16:00 00:00 Intake Total 1309 ml Output Total 1350 ml Balance -41 ml Result Diagram: 10/07/1715 10/07/17914 Other Results Laboratory Tests Test 10/06/17 11:30 10/06/17 11:40 10/07/17 09:15 White Blood Count 8.2 TH/MM3 8.8 TH/MM3 Red Blood Count 3.03 MIL/MM3 2.97 MIL/MM3 Hemoglobin 10.1 GM/DL 9.8 GM/DL Hematocrit 28.5 % 28.5 % Mean Corpuscular Volume 94.3 FL 96.0 FL Mean Corpuscular Hemoglobin 33.3 PG 32.9 PG Mean Corpuscular Hemoglobin Concent 35.3 % 34.3 % Red Cell Distribution Width 15.5 % 15.4 % Platelet Count 202 TH/MM3 344 TH/MM3 Mean Platelet Volume 9.7 FL 8.9 FL Neutrophils (%) (Auto) 72.6 % 59.8 % Lymphocytes (%) (Auto) 23.4 % 24.8 % Monocytes (%) (Auto) 0.8 % 9.4 % Eosinophils (%) (Auto) 2.8 % 4.8 % Basophils (%) (Auto) 0.4 % 1.2 % Neutrophils # (Auto) 6.0 TH/MM3 5.3 TH/MM3 Lymphocytes # (Auto) 1.9 TH/MM3 2.2 TH/MM3 Monocytes # (Auto) 0.1 TH/MM3 0.8 TH/MM3 Eosinophils # (Auto) 0.2 TH/MM3 0.4 TH/MM3 Basophils # (Auto) 0.0 TH/MM3 0.1 TH/MM3 CBC Comment DIFF FINAL AUTO DIFF Differential Comment FINAL DIFF MANUAL Hematology Comments Blood Urea Nitrogen 47 MG/DL 52 MG/DL Creatinine 0.69 MG/DL 0.72 MG/DL Random Glucose 269 MG/DL 155 MG/DL Calcium Level 8.8 MG/DL 9.0 MG/DL Phosphorus Level 3.0 MG/DL Magnesium Level 1.9 MG/DL Sodium Level 133 MEQ/L 138 MEQ/L Potassium Level 4.1 MEQ/L 3.7 MEQ/L Chloride Level 97 MEQ/L 99 MEQ/L Carbon Dioxide Level 27.1 MEQ/L 31.4 MEQ/L Anion Gap 9 MEQ/L 8 MEQ/L Estimat Glomerular Filtration Rate 83 ML/MIN 79 ML/MIN Differential Total Cells Counted 100 Neutrophils % (Manual) 63 % Band Neutrophils % 13 % Lymphocytes % 14 % Monocytes % 6 % Eosinophils % 4 % Neutrophils # (Manual) 6.7 TH/MM3 Platelet Estimate NORMAL Platelet Morphology Comment NORMAL Red Cell Morphology Comment NORMAL Imaging Last Impressions Chest X-Ray 10/04/17 0900 Signed Impressions: Service Date/Time: Wednesday, October 04, 2017 08:53 - CONCLUSION: Significant improvement with almost complete resolution of bilateral airspace disease. Benja Ramsey MD Thoracentesis 08/05/17 1535 Signed Impressions: Service Date/Time: Saturday, August 05, 2017 16:08 - CONCLUSION: Uncomplicated CT-guided thoracentesis. Sage Adler MD Chest Ultrasound 08/02/17 0000 Signed Impressions: Service Date/Time: Tuesday, August 01, 2017 22:06 - CONCLUSION: 1. Moderate right pleural effusion, as above. Alejo De La Vega MD Hip and Pelvis X-Ray 07/09/17 0000 Signed Impressions: Service Date/Time: Sunday, July 09, 2017 14:04 - CONCLUSION: Anatomic alignment. Ricardo Middleton MD FACR Liver Ultrasound 06/19/17 0000 Signed Impressions: Service Date/Time: June 13:20 - CONCLUSION: 1. Mildly increased echotexture of the liver characteristic of hepatic steatosis. 2. Gallbladder sludge. Obdulio Sam MD Abdomen X-Ray 06/16/17 0000 Signed Impressions: Service Date/Time: Friday, June 16, 2017 04:48 - CONCLUSION: 1. Continued small bowel ileus. There has been no significant change when compared to the prior exam. Tyo Duran MD Head CT 05/15/17 0000 Signed Impressions: Service Date/Time: May 19:59 - CONCLUSION: 1. 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 2. No bleed or new/acute infarct. Obdulio Simms MD Gall Bladder Ultrasound 05/08/17 0000 Signed Impressions: Service Date/Time: May 08:23 - CONCLUSION: Focally unremarkable appearance of the gallbladder Obdulio Chun MD Abdomen/Pelvis CT 05/07/17 0000 Signed Impressions: Service Date/Time: Sunday, May 07, 2017 13:23 - CONCLUSION: 1. Large left pneumothorax. 2. Bilateral lower lobe consolidation and bilateral moderate size pleural effusions. 3. Significant soft tissue thickening of the right lateral chest wall and left gluteus muscle. 4. Mild ascites. The findings were called to Dr. Carney. Deangelo Zamora MD Chest CT 04/30/17 0000 Signed Impressions: Service Date/Time: Sunday, April 30, 2017 09:20 - CONCLUSION: 1. Bilateral pulmonary infiltrates more pronounced within the lower lobes with tiny bilateral pleural effusions. Material seen filling the lower lobe bronchi bilaterally either related to purulent material or perhaps mucus plugging. Deangelo Wren Jr., MD Carotid Artery Ultrasound 04/24/17 0000 Signed Impressions: Service Date/Time: April 09:45 - CONCLUSION: 1. No hemodynamically significant carotid artery stenosis. Arnie Middleton MD Hip X-Ray 04/21/17 0000 Signed Impressions: Service Date/Time: Friday, April 21, 2017 11:36 - CONCLUSION: Fluoroscopic images during placement of intramedullary siomara left femur. Benja Ramsey MD Objective Remarks GENERAL: Elderly female who is laying in [facility] bed on trach collar SKIN: Warm and dry, adequately perfused. HEAD: Atraumatic. Normocephalic. mucous membranes moist. NECK: 8.[address] Trachea midline[address] No JVD. CARDIOVASCULAR: Regular rate and rhythm, sinus on the monitor. RESPIRATORY: unlabored. no accessory muscle use. trach collar. GASTROINTESTINAL: Abdomen soft, non-tender, nondistended. PEG in place with tube feeds running, site benign appearing. MUSCULOSKELETAL: Extremities without clubbing, cyanosis, or edema. No obvious deformities. NEUROLOGICAL: Eyes open spontaneously, does not appear to track. L gaze preference. R hemiparesis. Localizes with LUE. Very slight withdrawal of LLE to noxious stimuli. A/P Assessment and Plan Neuro/Psych: Left MCA CVA - 5.5 mm of [id number] subfalcine herniation, diagnosed 04/24. Persistent right-sided hemiparesis. Prior History of stroke Continue Aspirin 325 mg by tube daily. Stroke occurred 04/24/17. Patient was not a candidate for thrombolysis per discussion with neurology and radiology at that time. Repeat head CT 05/15 showed slight improvement in the midline shift now 5.5 mm and mass effect Neurosurgery consulted 04/30- Dr. López, recommended conservative management, now signed off. Neurology Dr. Malave has followed previously, signed off. Cardiovascular: Hypertension Norvasc 10 mg po daily, Cardura 1 mg peg daily, metoprolol 12.5 peg bid, hydralazine 10 mg per per peg q8 hours. clonidine prn SBP >160 Echo showed EF 25-30%, Grade I diastolic disfunction Pulmonary: Chronic Tracheostomy Now recurrent Acute hypoxemic respiratory failure Acute hypoxic respiratory failure - aspiration possible HCAP - previous episode resolved. Large left pneumothorax status post #10 Khmer chest tube 05/07 - resolved.Chest tube d/c'd 05/12/17 R pleural effusion - Continue with vent support keep sat >92% Ipratropium/albuterol aerosols every 6 hours with albuterol aerosols every 2 hours Pulm toilet, trach care SBT daily as gato Pulm is following GI/liver: Elevated transaminases, resolved Severe protein calorie malnutrition Small bowel ileus- resolved Hepatitis C antibody positive with negative genotype/viral load Hepatic steatosis Currently on PEG tube feeding with Glucerna 1.5 goal 45 cc an hour. Beneprotein tid. Lansoprazole 30 mg daily for GI regimen Docusate sodium 100 mg twice a day for bowel regimen can be held while on kayexalate. Endocrine: Diabetes mellitus SSI low-dose every 6 hours /Renal/FEN: Monitor renal function. I/O's, electrolytes replacement as needed Heme: Chronic Rivaroxaban use prior to admission Leukocytosis Normocytic anemia Follow CBC and coags. ID: MDR Pseudomonas aeruginosa and pneumonia (HCAP) MSSA bacteremia - resolved. Serratia/staph aureus pneumonia - resolved. C glabrata UTI - resolved. Citrobacter UTI - resolved. Serratia/MSSA sputum VAP resolved Current relevant cultures: 09/25/17 -sputum culture - Pseudomonas aeruginosa, multidrug resistant ( including Zerbaxa and Avycaz resistance). On Colistin nebs started 09/30 Per ID, Dr. Ranjan Saleh Prior cultures: Urine culture 04/26/17 sofie glabrata Blood culture 04/29/17 1 out of 4 bottles staph aureus Sputum culture 04/30/17 MSSA and Serratia. urine 05/07-> Serratia, treated. Urine 05/25: Citrobacter MSK: Left Intertroch Hip Fx s/p IMN 04/21/17. Vitamin D deficiency Sacral decubitus ulcer, Previously stage III, healing. Continue calcium vitamin D 250/125 one tablet 3x a day and cholecalciferol 5000 units daily. PT/OT evaluate and treat Maxsorb every 3 days/dressing changes every 3 days per wound care Continue bene protein one packet 3x a day Prophylaxis: SCDs. Heparin 5000 subcut q8 hours. GI - lansoprazole 30 mg by PEG tube daily ACCESS: PIV. Will sign off and transfer care to [facility] Level 2 Kristel Durant MD Oct 07, 2017 10:42
--- NOTE | 2017-10-07 12:29 | HHI.PR ---
Subjective Remarks Patient seen at 10:05 am Patient is awake, non verbal. Afebrile. Sitting on chair Objective Vitals Vital Signs Date Time Temp Pulse Resp B/P (MAP) Pulse Ox O2 Delivery O2 Flow Rate FiO2 10/07/17 08:00 30 10/07/17 08:00 71 10/07/17 08:00 98.4 71 20 135/70 (91) 99 10/07/17 07:12 98 30 10/07/17 04:06 98 30 10/07/17 04:00 30 10/07/17 04:00 98.9 60 18 111/45 (67) 99 10/07/17 00:00 98.9 64 18 145/73 (97) 99 10/07/17 00:00 30 10/06/17 23:44 99 30 10/06/17 21:26 98 30 10/06/17 20:00 99.0 88 20 92/71 (78) 98 10/06/17 20:00 30 10/06/17 20:00 88 10/06/17 16:00 98.1 89 20 128/45 (72) 99 10/06/17 16:00 30 10/06/17 15:57 99 30 10/06/17 13:28 99 30 I/O 10/06/17 10/06/17 10/06/17 10/07/17 10/07/17 10/07/17 07:00 15:00 23:00 07:00 15:00 23:00 Intake Total 475 ml 1309 ml Output Total 800 ml 1350 ml Balance -325 ml -41 ml Intake Oral 0 ml Tube Feeding 475 ml 1109 ml Other 200 ml Output Urine Total 500 ml 1300 ml Stool Total 300 ml 50 ml # Voids 1 Result Diagram: 10/07/17 0915 10/07/17 0915 Imaging Last Impressions Chest X-Ray 10/04/17 0900 Signed Impressions: Service Date/Time: Wednesday, October 04, 2017 08:53 - CONCLUSION: Significant improvement with almost complete resolution of bilateral airspace disease. Benja Ramsey MD Thoracentesis 08/05/17 1535 Signed Impressions: Service Date/Time: Saturday, August 05, 2017 16:08 - CONCLUSION: Uncomplicated CT-guided thoracentesis. Sage Adler MD Chest Ultrasound 08/02/17 0000 Signed Impressions: Service Date/Time: Tuesday, August 01, 2017 22:06 - CONCLUSION: 1. Moderate right pleural effusion, as above. Alejo De La Vega MD Hip and Pelvis X-Ray 07/09/17 0000 Signed Impressions: Service Date/Time: Sunday, July 09, 2017 14:04 - CONCLUSION: Anatomic alignment. Ricardo Middleton MD FACR Liver Ultrasound 06/19/17 0000 Signed Impressions: Service Date/Time: June 13:20 - CONCLUSION: 1. Mildly increased echotexture of the liver characteristic of hepatic steatosis. 2. Gallbladder sludge. Obdulio Sam MD Abdomen X-Ray 06/16/17 0000 Signed Impressions: Service Date/Time: Friday, June 16, 2017 04:48 - CONCLUSION: 1. Continued small bowel ileus. There has been no significant change when compared to the prior exam. Toy Duran MD Head CT 05/15/17 0000 Signed Impressions: Service Date/Time: May 19:59 - CONCLUSION: 1. 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 2. No bleed or new/acute infarct. Obdulio Simms MD Gall Bladder Ultrasound 05/08/17 0000 Signed Impressions: Service Date/Time: May 08:23 - CONCLUSION: Focally unremarkable appearance of the gallbladder Obdulio Chun MD Abdomen/Pelvis CT 05/07/17 0000 Signed Impressions: Service Date/Time: Sunday, May 07, 2017 13:23 - CONCLUSION: 1. Large left pneumothorax. 2. Bilateral lower lobe consolidation and bilateral moderate size pleural effusions. 3. Significant soft tissue thickening of the right lateral chest wall and left gluteus muscle. 4. Mild ascites. The findings were called to Dr. Carney. Deangelo Zamora MD Chest CT 04/30/17 0000 Signed Impressions: Service Date/Time: Sunday, April 30, 2017 09:20 - CONCLUSION: 1. Bilateral pulmonary infiltrates more pronounced within the lower lobes with tiny bilateral pleural effusions. Material seen filling the lower lobe bronchi bilaterally either related to purulent material or perhaps mucus plugging. Deangelo Wren Jr., MD Carotid Artery Ultrasound 04/24/17 0000 Signed Impressions: Service Date/Time: April 09:45 - CONCLUSION: 1. No hemodynamically significant carotid artery stenosis. Arnie Middleton MD Hip X-Ray 04/21/17 0000 Signed Impressions: Service Date/Time: Friday, April 21, 2017 11:36 - CONCLUSION: Fluoroscopic images during placement of intramedullary siomara left femur. Benja Ramsey MD Objective Remarks GENERAL: Unresponsive to verbal physical stimuli. SKIN: Warm and dry. HEAD: Normocephalic. EYES: No scleral icterus. No injection or drainage. NECK: Supple, trachea midline. No JVD or lymphadenopathy. T piece in place, no redness over trach insertion site. CARDIOVASCULAR: Regular rate and rhythm without murmurs, gallops, or rubs. RESPIRATORY: Scattered rhonchi audible on the right lung, left lung is clear to auscultation. GASTROINTESTINAL: Abdomen soft, non-tender, nondistended. MUSCULOSKELETAL: No cyanosis, or edema. BACK: Nontender without obvious deformity. No CVA tenderness. Neuro: Awake and alert, does not follow commands. Nonverbal. Medications and IVs Current Medications Medications (Trade) Dose Ordered Sig/Zeferino Route Start Time Stop Time Status Last Admin (Narcan Inj) 0.4 mg UNSCH PRN IV 04/20/17 17:15 (NS Flush) 2 ml BID IV FLUSH 04/24/17 21:00 10/07/17 08:42 (NS Flush) 2 ml UNSCH PRN IV FLUSH 04/24/17 09:30 09/17/17 08:48 (Aspirin) 325 mg DAILY DOBHOFF 04/27/17 09:00 10/07/17 08:42 (Prevacid Odt) 30 mg DAILY NG 05/08/17 09:00 10/07/17 08:42 (Glucagon Inj) 1 mg UNSCH PRN OTHER 05/21/17 13:15 (D50w (Syr) Inj) 50 ml UNSCH PRN IV PUSH 05/22/17 17:15 10/04/17 01:57 (Tears Naturale Opth Soln) 1 drop Q8HR EACH EYE 06/12/17 07:15 10/07/17 06:00 (Nitroglycerin 2% Oint) 2 inch Q6H PRN TOPICAL 06/21/17 08:00 06/30/17 14:37 (Heparin Inj) 5,000 units Q8HR SQ 07/15/17 08:00 10/07/17 06:20 (NovoLOG SUPPLEMENTAL SCALE) 1 Q6HR SQ 07/21/17 18:00 10/07/17 06:35 (Duoneb Neb) 1 ampule Q6HR NEB PRN NEB 08/10/17 14:00 10/07/17 07:12 (Pill Splitter) 1 ea UNSCH PRN OTHER 09/05/17 11:00 (Tylenol) 500 mg Q6H PRN PEG 09/16/17 16:15 09/16/17 16:36 (Apresoline) 10 mg Q8HR PEG 09/24/17 14:00 10/07/17 06:20 (Coly-Mycin M Neb) 75 mg Q8HR NEB NEB 09/30/17 16:00 10/06/17 23:25 (NovoLIN N INJ) 10 units TID SQ 10/02/17 09:00 Future Hold 10/03/17 18:43 (Norvasc) 10 mg DAILY PEG 10/04/17 09:00 10/07/17 08:41 (Oscal-D 250-125) 250 mg TID PEG 10/03/17 13:00 10/07/17 08:41 (Vitamin D3) 5,000 units DAILY PEG 10/04/17 09:00 10/07/17 08:42 (Catapres) 0.1 mg Q6H PRN PEG 10/03/17 12:30 (Cardura) 1 mg DAILY PEG 10/04/17 09:00 10/07/17 08:42 (Lactinex) 1 tab Q12HR PEG 10/03/17 21:00 10/07/17 08:42 (Lopressor) 12.5 mg Q12HR PEG 10/03/17 21:00 10/07/17 08:42 (Miralax) 17 gm DAILY PRN PEG 10/03/17 12:00 (Beneprotein Powder) 1 pack TID PRN G-TUBE 10/03/17 12:00 (Albuterol Neb) 2.5 mg Q2HR NEB PRN NEB 10/03/17 21:45 10/06/17 23:25 (fentaNYL INJ) 50 mcg Q1H PRN IV PUSH 10/03/17 23:00 (Peridex 0.12% Liq) 15 ml BID@08,20 MT 10/04/17 08:00 10/06/17 20:00 A/P Problem List: (1) Acute ischemic left middle cerebral artery (MCA) stroke ICD Code: I63.512 - Cerebral infarction due to unspecified occlusion or stenosis of left middle cerebral artery Status: Acute (2) Acute respiratory failure ICD Code: J96.00 - Acute respiratory failure, unspecified whether with hypoxia or hypercapnia (3) Right hemiplegia ICD Code: G81.91 - Hemiplegia, unspecified affecting right dominant side Status: Acute (4) Sacral decubitus ulcer ICD Code: L89.159 - Pressure ulcer of sacral region, unspecified stage Status: Chronic (5) HCAP (healthcare-associated pneumonia) ICD Code: J18.9 - Pneumonia, unspecified organism Status: Resolved (6) 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 now with very MDR pseudomonas and associated hypoxic respiratory failure. poor prognosis and unlikely to survive this hospitalization. daughter has very poor insight into her mother's poor condition , despite many conversations over the last few months. insists on aggressive care and insists that her mother will improve and will be taken home successfully one day. All I can offer at this point is ongoing diuresis for volume overload and the medical therapy for her pseudomonas. nothing else medically to offer. poor prognosis and unlikely to survive. off vent, stable for transition back out of ICU. Neuro/Psych: Left MCA CVA - 5.5 mm of [id number] subfalcine herniation, diagnosed 04/24. Persistent right-sided hemiparesis. Prior History of stroke Continue Aspirin 325 mg by tube daily. Stroke occurred 04/24/17. Patient was not a candidate for thrombolysis per discussion with neurology and radiology at that time. Repeat head CT 05/15 showed slight improvement in the midline shift now 5.5 mm and mass effect Neurosurgery consulted 04/30- Dr. López, recommended conservative management, now signed off. Neurology Dr. Malave has followed previously, signed off. Cardiovascular: Hypertension Norvasc 10 mg po daily, cardura 1 mg peg daily, metoprolol 12.5 peg bid, hydralazine 10 mg per per peg q8 hours. clonidine prn SBP >160 Echocardiogram 04/24/17 - EF 50 to 55%. Mild concentric LVH. trace to mild MVR ASA 325 for stroke as per above BNP elevated. continue forced diuresis. BP better. Continue to monitor vital signs. Pulmonary: Chronic Tracheostomy Now recurrent Acute hypoxemic respiratory failure Acute on chronic hypoxic respiratory failure - aspiration possible HCAP - previous episode resolved. Large left pneumothorax status post #10 Setswana chest tube 05/07 - resolved.Chest tube d/c'd 05/12/17 R pleural effusion - She previously underwent CT guided R thoracentesis in IR with removal of 1450 clear yellow fluid, pleural fluid studies not sent. Chronic respiratory failure, currently on Tpiece Obtained ABG and initially satisfactory on Tpiece: PH 7.42/PaCO2 40/PA O2 116/ bicarbonate 25.6. Respiratory condition declined, subsequently placed on PRVC TV 450 R 18 IT 1 PEEP 8 via 8 cuffed Shiley. ID recommending bronchoscopy. Daughter had previously refused but now is amenable to bronchoscopy. Proceeded with bronchoscopy after placing on vent. Performed BAL from RML and lingula per Dr. Ranjan Saleh request. Ipratropium/albuterol aerosols every 6 hours with albuterol aerosols every 2 hours GI/liver: Elevated transaminases, resolved Severe protein calorie malnutrition Small bowel ileus- resolved Hepatitis C antibody positive with negative genotype/viral load Hepatic steatosis Currently on PEG tube feeding with Glucerna 1.5 goal 45 cc an hour. Beneprotein tid. Lansoprazole 30 mg daily for GI regimen Docusate sodium 100 mg twice a day for bowel regimen can be held while on kayexalate. Previous CT abdomen/pelvis 05/07 - mild ascites. Large left pneumothorax. Right greater than left pleural effusion. liver ultrasound 06/19 revealed hepatic steatosis and gallbladder sludge Endocrine: Diabetes mellitus SSI low-dose every 6 hours Holding glimepiride 4 mg by mouth daily 10/07 Previously on NPH 10 units SQ TID which was held due to patient running lower blood sugars. Blood sugars now are very elevated in the 300's range. Resume NPH insulin at a lower dose of 5 units SQ TID. /Renal/FEN: Hyperkalemia Hyponatremia, resolved Acute intravascular volume overload Previously on 0.9 NaCl @ 100 ml/hr. Patient placed on D10 w restart tube feeds. Periwick catheter in place sp Lasix IV administration due to fluid overload. Bactrim dicontinued since it can contribute to hyperkalemia. Discussed with ID. stopped kayexalate. continue with lasix. Leavitt catheter previously placed for urinary retention on 04/26. Leavitt removed with q6h straight cath. 10/07 Potassium and sodium stable. Monitor BMP intermittently. Heme: Chronic Rivaroxaban use prior to admission Leukocytosis - resolved Normocytic anemia Thrombocytosis - resolved Follow CBC and coags. On subcutaneous enoxaparin 40 mg daily subcutaneous ID: MDR Pseudomonas aeruginosa and pneumonia (HCAP) MSSA bacteremia - resolved. Serratia/staph aureus pneumonia - resolved. C glabrata UTI - resolved. Citrobacter UTI - resolved. Serratia/MSSA sputum VAP resolved Current relevant cultures: 09/25/17 -sputum culture - Pseudomonas aeruginosa, multidrug resistant ( including Zerbaxa and Avycaz resistance). On Colestin nebs started 09/30 #4. Per ID, Dr. Ranjan Saleh On levaquin 500 mg IV daily 10/03, being discontinued per ID On Bactrim 800/160 bid which is being discontinued per d/w ID. Continue Lactinex bid. Prior cultures: Urine culture 04/26/17 sofie glabrata Blood culture 04/29/17 1 out of 4 bottles staph aureus Sputum culture 04/30/17 MSSA and Serratia. urine 05/07-> Serratia, treated. Urine 05/25: Citrobacter MSK: Left Intertroch Hip Fx s/p IMN 04/21/17. Vitamin D deficiency Sacral decubitus ulcer, Previously stage III, healing. Continue calcium vitamin D 250/125 one tablet 3x a day and cholecalciferol 5000 units daily. PT/OT evaluate and treat Maxsorb every 3 days/dressing changes every 3 days per wound care Continue bene protein one packet 3x a day Prophylaxis: SCDs. Heparin 5000 subcut q8 hours. GI - lansoprazole 30 mg by PEG tube daily ACCESS: PIV. FULL CODE Discharge Planning Continue to monitor the medical floor. On IV antibiotics. Very poor prognosis given multidrug-resistant Pseudomonas hospital-acquired pneumonia. Appreciate palliative care efforts. Problem Qualifiers (1) Acute respiratory failure: Qualified Codes: J96.00 - Acute respiratory failure, unspecified whether with hypoxia or hypercapnia (2) Sacral decubitus ulcer: Qualified Codes: L89.152 - Pressure ulcer of sacral region, stage 2 (3) Chronic respiratory failure: Qualified Codes: J96.11 - Chronic respiratory failure with hypoxia Aleksandar Alford MD Oct 07, 2017 12:29
[2017-10-07] MEDS: RESP: COLISTIN 150 MG VIAL NEB SCH (16:42)
[2017-10-07] MEDS: INSULIN HUMAN NPH 1,000 UNITS/10 ML VIAL SQ SCH (17:14)
--- NOTE | 2017-10-07 19:26 | HHI.PR ---
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 no fever Weekend events noted Back from ICU On PRVC AC16 Did't tolerate CPAP Was up in cardiac chair Objective Vital Signs Vital Signs Date Time Temp Pulse Resp B/P (MAP) Pulse Ox O2 Delivery O2 Flow Rate FiO2 10/07/17 16:47 99 30 10/07/17 16:00 98.6 65 18 114/59 (77) 99 10/07/17 16:00 30 10/07/17 13:25 30 10/07/17 12:00 30 10/07/17 12:00 98.2 71 22 135/70 (91) 99 10/07/17 08:00 30 10/07/17 08:00 71 10/07/17 08:00 98.4 71 20 135/70 (91) 99 10/07/17 07:12 98 30 10/07/17 04:06 98 30 10/07/17 04:00 30 10/07/17 04:00 98.9 60 18 111/45 (67) 99 10/07/17 00:00 98.9 64 18 145/73 (97) 99 10/07/17 00:00 30 10/06/17 23:44 99 30 10/06/17 21:26 98 30 10/06/17 20:00 99.0 88 20 92/71 (78) 98 10/06/17 20:00 30 10/06/17 20:00 88 I/O 10/06/17 10/06/17 10/06/17 10/07/17 10/07/17 10/07/17 07:00 15:00 23:00 07:00 15:00 23:00 Intake Total 475 ml 1309 ml 447 ml Output Total 800 ml 1350 ml 850 ml Balance -325 ml -41 ml -403 ml Intake Oral 0 ml Tube Feeding 475 ml 1109 ml 447 ml Other 200 ml Output Urine Total 500 ml 1300 ml 450 ml Stool Total 300 ml 50 ml 400 ml # Voids 1 Result Diagram: 10/07/1715 10/07/1715 Objective Remarks GENERAL: Elderly female,NAD SKIN: Warm and dry. HEAD: Normocephalic. EYES: No scleral icterus. No injection or drainage. NECK: Supple, trachea midline. No JVD or lymphadenopathy. CARDIOVASCULAR: Regular rate and rhythm without murmurs, gallops, or rubs. RESPIRATORY: Breath sounds equal bilaterally. No accessory muscle use. GASTROINTESTINAL: Abdomen soft, non-tender, nondistended. MUSCULOSKELETAL: No cyanosis, or edema. BACK: Nontender without obvious deformity. No CVA tenderness. A/P Assessment and Plan RF,S/P Trach CVA Pneumonia Pleural effusion Pseudomonas Tracheobronchitis, Hyperkalemia Hypoxia PLAN: Vent support Aerosol nebs Supplement 02 TF Mucomyst Nebs Abx per ID DW RN at Daily CPAP trial Chris Rizo MD Oct 07, 2017 19:26
[2017-10-08] VITALS (14 sets, daily range): BP systolic 113–138; BP diastolic 63–76; PULSE 58–87; RESP 18; TEMP 97.6–98.6; O2SAT 97–99
[2017-10-08] MEDS: RESP: ALBUTEROL 2.5 MG/IPRATROPIUM 0.5 MG NEB (PRN) NEB ×2 (00:01→07:29)
[2017-10-08] MEDS: RESP: COLISTIN 150 MG VIAL NEB SCH ×4 (00:51→23:00)
[2017-10-08] MEDS: hydrALAZINE HCL 10 MG TAB PEG SCH ×3 (05:26→21:52)
[2017-10-08] MEDS: HEPARIN SODIUM - SQ 10,000 UNITS/ML VIAL SQ SCH ×3 (05:26→21:52)
[2017-10-08] MEDS: ARTIFICIAL TEARS OPTH SOLN 15 ML BTL EACH EYE SCH ×3 (05:26→21:52)
[2017-10-08] MEDS: INSULIN ASPART SUPPLEMENTAL SCALE SQ SCH ×2 (06:47)
[2017-10-08 07:51] LABS: AUTOMATED NEUTROPHIL # 5.7 TH/MM3 (1.8-7.7); BASOPHIL # 0.1 TH/MM3 (0-0.2); EOSINOPHIL # 0.4 TH/MM3 (0-0.4); EOSINOPHIL % 4.9 % (0.0-4.0); HEMATOCRIT 28.3 % (35.0-46.0); HEMOGLOBIN 9.5 GM/DL (11.6-15.3); LYMPH % 17.4 % (9.0-44.0); LYMPHOCYTE # 1.4 TH/MM3 (1.0-4.8); MEAN CELL VOLUME 96.8 FL (80.0-100.0); MEAN CORPUSCULAR HEMOGLOBIN 32.6 PG (27.0-34.0); MEAN CORPUSCULAR HGB CONC 33.7 % (32.0-36.0); MONO % 6.8 % (0.0-8.0); MONOCYTE # 0.6 TH/MM3 (0-0.9); NEUT % 69.9 % (16.0-70.0); PLATELET COUNT 332 TH/MM3 (150-450); RED BLOOD COUNT 2.92 MIL/MM3 (4.00-5.30); RED CELL DISTRIBUTION WIDTH 15.9 % (11.6-17.2); WHITE BLOOD COUNT 8.2 TH/MM3 (4.0-11.0)
[2017-10-08] MEDS: CHLORHEXIDINE 0.12% (ORAL KIT) 15 ML CUP MT SCH ×2 (08:00→20:00)
[2017-10-08 08:20] LABS: BICARBONATE 31.5 MEQ/L (21.0-32.0); CALCIUM 9.5 MG/DL (8.5-10.1); CREATININE 0.68 MG/DL (0.50-1.00)
[2017-10-08] MEDS: ASPIRIN 325 MG TAB DOBHOFF SCH (09:00)
[2017-10-08] MEDS: SODIUM CHLORIDE 0.9% FLUSH 5 ML FLUSH IV FLUSH SCH ×2 (09:00→21:00)
[2017-10-08] MEDS: INSULIN HUMAN NPH 1,000 UNITS/10 ML VIAL SQ SCH ×2 (09:03→17:00)
[2017-10-08] MEDS: DOXAZOSIN MESYLATE 1 MG TAB PEG SCH (09:03)
[2017-10-08] MEDS: LANSOPRAZOLE SOLUTAB 30 MG TAB NG SCH (09:03)
[2017-10-08] MEDS: CALCIUM/VITAMIN D 250 MG/125 U TAB PEG SCH ×3 (09:03→18:00)
[2017-10-08] MEDS: cloNIDine HCL 0.1 MG TAB PEG PRN (09:03)
[2017-10-08] MEDS: METOPROLOL TARTRATE 25 MG TAB PEG SCH ×2 (09:03→21:52)
[2017-10-08] MEDS: LACTOBACILLUS ACIDOPHILUS TAB PEG SCH ×2 (09:03→21:52)
[2017-10-08 09:04] LABS: BANDS 13 % (0-6); LYMPHOCYTES 13 % (9-44); METAMYELOCYTES 2 % (0-1); MONOCYTES 8 % (0-8); MYELOCYTES 1 % (0-0); NEUTROPHIL # MANUAL DIFF 6.1 TH/MM3 (1.8-7.7); POLYS (SEG NEUTROPHILS) 58 % (16-70)
[2017-10-08] MEDS: CHOLECALCIFEROL (VIT D3) 5000 UNIT CAP PEG SCH (09:04)
--- NOTE | 2017-10-08 09:42 | HHI.CCPN ---
Subjective Remarks/Hospital Course 04/24: 76-year-old female with a medical history significant for prior stroke, diabetes mellitus who was admitted with DKA and a hip fracture for which she underwent ORIF on 04/21. Patient developed altered mental status and was last noted to be okay around 5:30 AM. Subsequently there was a change in her mental status and she was noted to not be moving her right side for which stroke alert was called. Head CT showed large left MCA territory ischemic infarct with edema. Patient was transferred to the ICU by family medicine service in the critical care consult was requested. I evaluated the patient following arrival to the ICU. At that time she was laying in bed with her eyes open however not following commands and had a dense right hemiplegia. Patient was also evaluated by Dr. Malave from neurology. [facility] further discussed current event with patient's daughter following her arrival to the ICU. Per the daughter patient has been living with her since her stroke in 2014 and does ambulate however has been having problems with memory and incontinence as well as gait difficulties. She does not feel patient would want intubation or tracheostomy or PEG tube. 04/25: Patient remains encephalopathic, awake though not following commands consistently. Dense right hemiplegia persists. Appears to be awake enough to protect airway currently. Patient's daughter rescinded DNR and made a full code last evening. 04/26: Remains encephalopathic, not following commands. On Dobbhoff for tube feeds at 30 cc per hour. Had urinary retention and drained 2 L of urine after placing Moser catheter today. CT head done this morning with large left MCA territory infarct with left to right midline shift and significant cerebral edema. Hyperglycemia noted. Patient given mannitol earlier for increasing cerebral edema. 04/27: Remains encephalopathic, not following commands. On Dobbhoff tube feeds at 30 cc per hour. When into A. fib with RVR last night which responded with Lopressor 5 mg IV 1 dose. 04/28: Remains encephalopathic, arousable, not following commands. Moves left upper extremity spontaneously. Tolerating Dobbhoff tube feeds. Remains on nasal cannula. 04/29: Encephalopathic, eyes be arousable, moves left upper extremity spontaneously and occasionally opens eyes. Dense right hemiplegia and aphasia persists. On nasal cannula. Dobbhoff tube feeds being advanced. Patient was transfused 1 unit PRBCs yesterday. Urine culture with yeast from yesterday for which fluconazole being started. Had brief run of A. fib with RVR which improved with Lopressor IV, currently in sinus rhythm. 04/30: Worsening hypoxemic respiratory failure, currently on partial nonrebreather. Remains lethargic. WBC count increased from 14.6 today 20.7. Chest x-ray shows bilateral worsening infiltrates and small pleural effusions. Sodium 154, weight up by 8 KG. Albumin 1 mg Bumex 1. Also one dose of albumin. Remains in sinus tachycardia. Tmax 101.3 05/01: Patient was intubated yesterday for lack of airway protection, and severe hypoxemic respiratory failure from aspiration pneumonia involving multiple lobes. Patient is on the vent lethargic, no spontaneous eye opening. Chest x- ray remains unchanged. Remains intermittently febrile Tmax 101.3. WBC count improving 05/02: Remains critically ill with no improvement in mental status. Spiking fever of 101.7. Blood culture and sputum culture with staph aureus sputum also growing GNR, WBC count 22,000 now indicating worsening sepsis. Daughter still requesting aggressive care. Palliative care is following 05/03: S/P large area dominant hemisphere CVA. No neurological improvement. Now with pneumonia (infiltrate, fever, leukocytosis) and appropriate abx coverage. She will have a hard time surviving the hip fx, CVA, and pneumonia. Palliative Care needs to be a mainstay of our plan. 05/04: No improvement in neuro status. Sputum C&S allows us to narrow abx coverage to levaquin alone. Lungs remain quite congested. Enteral nutrition tolerated. 05/05: No improvement in neuro status. Moves left arm spontaneously. Flaccid right side. Unresponsive. Persistent mild hypoglycemia - will cut Levemir 50%. Abdomen more distended, check KUB. 05/06: CT head with massive left MCA infarction and > 1 cm shift in right handed woman. She opens eyes, does not track. 05/07: Patient open eyes. Attempts to respond. Seneg[place]e speaking. Tolerating tube feeds. Positive bowel movement. Volume overloaded. 05/08: Tmax 99.4. Potassium being replaced. Ultrasound gallbladder currently pending. Transaminases are trending downward. Gently diurese. 05/09: Alk phos decreasing. Remains with good urine output. Neurological status not improving. 05/10: Fixed neuro deficit unchanged. Profound CVA. 05/11: Appears to track with eyes today. No improvement in motor function. Remains very edematous, diuretics doubled. 05/12: Continued thick secretions. Afebrile, leukocytosis resolved. 05/13: CT head with completed left MCA stroke, persistent edema and 5 mm shift away. Does not last long on SBTs - major decision now is trach/PEG. 05/14: Daughter has decided to proceed with trach and PEG. I have been pessimistic with her about chances for a meaningful recovery. 05/15: Plan for trach today. No change in neuro status. Still ventilator dependent. 05/16: Trach completed. Await PEG and disposition. 05/17: PEG placed 05/16. Start TFs today after nutrition consult. Work to place patient. 05/18: No improvement. Does open eyes, no focus or tracking. Completed large dominant (left) hemisphere CVA in right handed woman with severe deficit. Medicaid pending status, [facility] is following. 05/19: no improvements in neuro exam. ready for LTAC. will d/c moser and rectal tubes. 05/20: no changes or improvements. very difficult placement due to patient not [place] citizen. 05/21: no improvements. resting on vent overnight due to distress. 05/22: no neurologic changes. no improvements. attempted T-piece which failed after 10 minutes. 05/23: no improvements. poor prognosis. poor neuro exam. still failing weaning trials. 05/24: no improvements or changes. still failing t-piece trials. 05/25: No acute changes of improvement overnight. Failed CPAP due to apnea, tried again currently tolerating. Neurological exam unchanged. 05/26: No improvement in neurological function. 05/27: Patient has required Moser catheter because of breakdown of skin on upper thighs and groin. Urine has become infected, will treat. 05/28: Some drainage from around trach (placed 2 weeks ago). Will change out trach tube and inspect neck wound. I&O straight cath q6h order entered 05/17. 05/29: No improvement, remains obtunded. Failed CPAP trials yesterday and again today due to apnea. Moser placed due to persistent urinary retention 05/30: Obtunded, unresponsive. Failed SBTs, remains ventilator dependent. 05/31: Patient continues to fail SBT failed yesterday due to apnea. Neuro exam remains unchanged. 06/01: No acute changes overnight, 06/02: no changes. ekg done overnight for ? EKG changes seen on telemetry which were not visualized on EKG. 06/03: no improvements or changes. had long conversation with daughter yesterday. only facility which would accept patient is in [place] and daughter is refusing to allow patient to go there because it is "too far away." Daughter continues to push for aggressive care despite no improvements, and resistant to Hospice. Patient does not need acute inpatient therapy but lacks funding for appropriate disposition. 06/04: No acute events overnight, failed SBT due to apnea. 06/05: No acute events, continues to fail spontaneous breathing trials. Unable to wean 06/06 Currently tolerating CPAP. Will attempt TP today up to 4 hours. No acute events overnight 06/07: Tolerating trach collar/T-piece. Transfer soon. 06/08: Awaiting transfer. 06/09: Remains ventilator dependent. No improvement in neurological function. 06/10: No improvement. Daughter is not attending preplanned meetings to discuss disposition 06/12: Afebrile. Neurologically stable and unchanged. Noted sodium 135. Adding sodium chloride tablets 1 today. Not on free water.. Tolerating tube feeds at goal 45 cc an hour. 06/13: No improvement in neurological function. 06/14: No improvement. Fluid balance correct. Gas exchange acceptable. 06/15: No improvement. Obtunded and unresponsive. 06/16: no improvements in mental status. KUB overnight with dilated small bowel loops. given methylnaltrexone and erythromycin. today abdomen is soft and tolerating tube feeds. 06/17: tolerated t-piece x 6 hours yesterday. rested on cpap overnight. no changes in encephalopathy. 06/18: Currently on ventilator overnight. Multiple bowel movements. Thick yellow secretions noted in ventilator circuit. Opens eyes. 06/19: Afebrile. Tolerating stretcher chair yesterday on PSV. Tolerating tube feeding. Neurologically unchanged. 06/20: Afebrile. Resting in bed in no acute distress in sitting position. Currently on ventilator set sitting. Tolerated stretcher chair/PSV trial 6 hours yesterday. Neurologically unchanged. 06/21: Tmax 100.8. Patient with copious thick yellow secretions. Tolerating tube feeds. Positive bowel movement. Lasted only 1 hour PSV yesterday 06/22: Tmax 99.9. Continues to have thick secretions. Tolerating tube feeding. Positive BM. 06/23: Afebrile. Continues to have thick tracheal secretions from tracheostomy site. Tolerating tube feeding. 3 bowels movements. Opens eyes to stimulation. Stares at you but does not follow commands. 06/24: Remains encephalopathic, on mechanical ventilation via tracheostomy. Tolerating PEG feeds 06/25: Remains encephalopathic on mechanical ventilation. Tolerated C Pap +5 with pressure support +10 all day yesterday. Tolerating PEG feeds. 06/26: No improvement.Vent dependent still. 06/27: Remains encephalopathic, on mech vent via trach. Daily CPAP trials. 06/28: Unable to wean from ventilator. 06/29: Neurologically unchanged. Remains on mechanical ventilation. Daily C Pap trials ongoing. 06/30: Remains encephalopathic. On C Pap overnight. Tolerating tube feeds. 07/01: No change in neurologic status. On mechanical ventilation via tracheostomy. Tolerating tube feeds. 07/02: Remains encephalopathic. No change in neurologic status. On mechanical ventilation via tracheostomy. Daily C Pap trials ongoing. 07/03: Occasional spontaneous eye opening however remains encephalopathic. On mechanical ventilation via tracheostomy. 07/04: Tmax 99.2. Multiple bowel movements overnight. Tolerating tube feeds. On T piece trial at 5 L since noon yesterday. Otherwise neurologically unchanged. Daughter encouraged by movement of left leg. 07/05: Currently resting in bed on T piece 36 hours. Tolerates chair. No changes neurologically. Positive BM's. Tolerating her tube feeding. 07/06: Continue T-piece trials, if tolerated consider transfer to floor. 07/07: Extended T-piece trial. Plan transfer to floor. 07/09: Patient is experiencing apnea episodes and had to be placed back on higher FiO2.. Hold transfer. 07/10: X-ray left hip shows good anatomic alignment. Still requiring elevated FiO2. 07/11: Prealbumin 20, nutritional support is adequate and status is stable. No neurological improvement. 07/12: No improvement in neurological function. Continued acceptable respiratory effort. 07/13: No change. Subjective 10/03/17 Dr. Rizo notified communications professor that patient would be transferring to ICU. Patient is known to [facility] service. She was originally admitted 04/20/17 after a fall with hip fracture resulting in ORIF 04/21. Postoperatively, she developed large R MCA stroke with midline shift. Her neurologic condition remained poor and she underwent trach 05/15/17 and PEG 05/16/17. She was eventually transitioned to Tpiece and transferred to floor. She has suffered from multiple infectious complications due to her persistent bedfast and trach dependent state. 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 She has been on trach collar with worsening hypoxemia therefore [place] [facility] [place] from yesterday demonstrates bilateral pulmonary infiltrates. She has also had hyperkalemia today up to 6.7 which has been treated with kayexalate, down to 6. 2/: improvement in air space disease with diuresis and bronch yesterday. no overall improvements in chronic poor prognosis. unlikely to survive this hospital stay. daughter has poor insight into the gravity of her mother's medical condition. she will not recover meaningfully. 10/05: continuing to clinically improve from a respiratory standpoint. no improvements in overall poor function. off vent on t-piece today. can likely transition out of ICU tomorrow. 10/06 No events overnight. Remains on ventilator via trach. Afebrile. 10/07 No events overnight. Afebrile. 10/08 Patient is on ventilator via trach. afebrile. Objective Vital Signs Date Time Temp Pulse Resp B/P (MAP) Pulse Ox O2 Delivery O2 Flow Rate FiO2 10/08/17 08:00 30 10/08/17 08:00 98.2 73 18 120/64 (82) 97 10/05/17 09:35 T-piece 6.00 Intake and Output 10/08/17 10/08/17 10/09/17 08:00 16:00 00:00 Intake Total 386 ml Output Total 600 ml Balance -214 ml Result Diagram: 10/08/17 0710/08/17 07 Other Results Laboratory Tests Test 10/08/17 07:05 White Blood Count 8.2 TH/MM3 Red Blood Count 2.92 MIL/MM3 Hemoglobin 9.5 GM/DL Hematocrit 28.3 % Mean Corpuscular Volume 96.8 FL Mean Corpuscular Hemoglobin 32.6 PG Mean Corpuscular Hemoglobin Concent 33.7 % Red Cell Distribution Width 15.9 % Platelet Count 332 TH/MM3 Mean Platelet Volume 9.0 FL Neutrophils (%) (Auto) 69.9 % Lymphocytes (%) (Auto) 17.4 % Monocytes (%) (Auto) 6.8 % Eosinophils (%) (Auto) 4.9 % Basophils (%) (Auto) 1.0 % Neutrophils # (Auto) 5.7 TH/MM3 Lymphocytes # (Auto) 1.4 TH/MM3 Monocytes # (Auto) 0.6 TH/MM3 Eosinophils # (Auto) 0.4 TH/MM3 Basophils # (Auto) 0.1 TH/MM3 CBC Comment AUTO DIFF Differential Total Cells Counted 100 Neutrophils % (Manual) 58 % Band Neutrophils % 13 % Lymphocytes % 13 % Monocytes % 8 % Eosinophils % 5 % Neutrophils # (Manual) 6.1 TH/MM3 Metamyelocytes 2 % Myelocytes 1 % Differential Comment FINAL DIFF MANUAL Platelet Estimate NORMAL Platelet Morphology Comment NORMAL Blood Urea Nitrogen 53 MG/DL Creatinine 0.68 MG/DL Random Glucose 369 MG/DL Calcium Level 9.5 MG/DL Sodium Level 137 MEQ/L Potassium Level 4.2 MEQ/L Chloride Level 99 MEQ/L Carbon Dioxide Level 31.5 MEQ/L Anion Gap 7 MEQ/L Estimat Glomerular Filtration Rate 84 ML/MIN Imaging Last Impressions Chest X-Ray 10/04/17 0900 Signed Impressions: Service Date/Time: Wednesday, October 04, 2017 08:53 - CONCLUSION: Significant improvement with almost complete resolution of bilateral airspace disease. Benja Ramsey MD Thoracentesis 08/05/17 1535 Signed Impressions: Service Date/Time: Saturday, August 05, 2017 16:08 - CONCLUSION: Uncomplicated CT-guided thoracentesis. Sage Adler MD Chest Ultrasound 08/02/17 0000 Signed Impressions: Service Date/Time: Tuesday, August 01, 2017 22:06 - CONCLUSION: 1. Moderate right pleural effusion, as above. Alejo De La Vega MD Hip and Pelvis X-Ray 07/09/17 0000 Signed Impressions: Service Date/Time: Sunday, July 09, 2017 14:04 - CONCLUSION: Anatomic alignment. Ricardo Middleton MD FACR Liver Ultrasound 06/19/17 0000 Signed Impressions: Service Date/Time: June 13:20 - CONCLUSION: 1. Mildly increased echotexture of the liver characteristic of hepatic steatosis. 2. Gallbladder sludge. Obdulio Sam MD Abdomen X-Ray 06/16/17 0000 Signed Impressions: Service Date/Time: Friday, June 16, 2017 04:48 - CONCLUSION: 1. Continued small bowel ileus. There has been no significant change when compared to the prior exam. Toy Duran MD Head CT 05/15/17 0000 Signed Impressions: Service Date/Time: May 19:59 - CONCLUSION: 1. 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 2. No bleed or new/acute infarct. Obdulio Simms MD Gall Bladder Ultrasound 05/08/17 0000 Signed Impressions: Service Date/Time: May 08:23 - CONCLUSION: Focally unremarkable appearance of the gallbladder Obdulio Chun MD Abdomen/Pelvis CT 05/07/17 0000 Signed Impressions: Service Date/Time: Sunday, May 07, 2017 13:23 - CONCLUSION: 1. Large left pneumothorax. 2. Bilateral lower lobe consolidation and bilateral moderate size pleural effusions. 3. Significant soft tissue thickening of the right lateral chest wall and left gluteus muscle. 4. Mild ascites. The findings were called to Dr. Carney. Deangelo Zamora MD Chest CT 04/30/17 0000 Signed Impressions: Service Date/Time: Sunday, April 30, 2017 09:20 - CONCLUSION: 1. Bilateral pulmonary infiltrates more pronounced within the lower lobes with tiny bilateral pleural effusions. Material seen filling the lower lobe bronchi bilaterally either related to purulent material or perhaps mucus plugging. Deangelo Wren Jr., MD Carotid Artery Ultrasound 04/24/17 0000 Signed Impressions: Service Date/Time: April 09:45 - CONCLUSION: 1. No hemodynamically significant carotid artery stenosis. Arnie Middleton MD Hip X-Ray 04/21/17 0000 Signed Impressions: Service Date/Time: Friday, April 21, 2017 11:36 - CONCLUSION: Fluoroscopic images during placement of intramedullary siomara left femur. Benja Ramsey MD Objective Remarks GENERAL: Elderly female who is laying in IMC bed on trach collar SKIN: Warm and dry, adequately perfused. HEAD: Atraumatic. Normocephalic. mucous membranes moist. NECK: 8.[address] Trachea midline[address] No JVD. CARDIOVASCULAR: Regular rate and rhythm, sinus on the monitor. RESPIRATORY: unlabored. no accessory muscle use. trach collar. GASTROINTESTINAL: Abdomen soft, non-tender, nondistended. PEG in place with tube feeds running, site benign appearing. MUSCULOSKELETAL: Extremities without clubbing, cyanosis, or edema. No obvious deformities. NEUROLOGICAL: Eyes open spontaneously, does not appear to track. L gaze preference. R hemiparesis. Localizes with LUE. Very slight withdrawal of LLE to noxious stimuli. A/P Assessment and Plan Neuro/Psych: Left MCA CVA - 5.5 mm of [id number] subfalcine herniation, diagnosed 04/24. Persistent right-sided hemiparesis. Prior History of stroke Continue Aspirin 325 mg by tube daily. Stroke occurred 04/24/17. Patient was not a candidate for thrombolysis per discussion with neurology and radiology at that time. Repeat head CT 05/15 showed slight improvement in the midline shift now 5.5 mm and mass effect Neurosurgery consulted 04/30- Dr. López, recommended conservative management, now signed off. Neurology Dr. Malave has followed previously, signed off. Cardiovascular: Hypertension Norvasc 10 mg po daily, Cardura 1 mg peg daily, metoprolol 12.5 peg bid, hydralazine 10 mg per per peg q8 hours. clonidine prn SBP >160 Echo showed EF 25-30%, Grade I diastolic disfunction Pulmonary: Chronic Tracheostomy Now recurrent Acute hypoxemic respiratory failure Acute hypoxic respiratory failure - aspiration possible HCAP - previous episode resolved. Large left pneumothorax status post #10 Telugu chest tube 05/07 - resolved.Chest tube d/c'd 05/12/17 R pleural effusion - Continue with vent support keep sat >92% Ipratropium/albuterol aerosols every 6 hours with albuterol aerosols every 2 hours Pulm toilet, trach care SBT daily as gato Pulm is following GI/liver: Elevated transaminases, resolved Severe protein calorie malnutrition Small bowel ileus- resolved Hepatitis C antibody positive with negative genotype/viral load Hepatic steatosis Currently on PEG tube feeding with Glucerna 1.5 goal 45 cc an hour. Beneprotein tid. Lansoprazole 30 mg daily for GI regimen Docusate sodium 100 mg twice a day for bowel regimen can be held while on kayexalate. Endocrine: Diabetes mellitus Increase SSI high scale-dose every 6 hours , add Levemir 7u Q12 /Renal/FEN: Monitor renal function. I/O's, electrolytes replacement as needed Heme: Chronic Rivaroxaban use prior to admission Leukocytosis Normocytic anemia Follow CBC and coags. ID: MDR Pseudomonas aeruginosa and pneumonia (HCAP) MSSA bacteremia - resolved. Serratia/staph aureus pneumonia - resolved. C glabrata UTI - resolved. Citrobacter UTI - resolved. Serratia/MSSA sputum VAP resolved Current relevant cultures: 09/25/17 -sputum culture - Pseudomonas aeruginosa, multidrug resistant ( including Zerbaxa and Avycaz resistance). On Colistin nebs started 09/30 Per ID, Dr. Ranjan Saleh Prior cultures: Urine culture 04/26/17 sofie glabrata Blood culture 04/29/17 1 out of 4 bottles staph aureus Sputum culture 04/30/17 MSSA and Serratia. urine 05/07-> Serratia, treated. Urine 05/25: Citrobacter MSK: Left Intertroch Hip Fx s/p IMN 04/21/17. Vitamin D deficiency Sacral decubitus ulcer, Previously stage III, healing. Continue calcium vitamin D 250/125 one tablet 3x a day and cholecalciferol 5000 units daily. PT/OT evaluate and treat Maxsorb every 3 days/dressing changes every 3 days per wound care Continue bene protein one packet 3x a day Prophylaxis: SCDs. Heparin 5000 subcut q8 hours. GI - lansoprazole 30 mg by PEG tube daily ACCESS: PIV. Will sign off and transfer care to [facility] Level 2 Kristel Durant MD Oct 08, 2017 09:42
[2017-10-08] MEDS ORDERED: GLUCAGON 1 MG/ML VIAL OTHER PRN (09:45)
--- NOTE | 2017-10-08 12:02 | HHI.IDPN ---
Subjective Subjective Remarks is a 76 y/o CF with PMHx of stroke, diabetes mellitus who was admitted with DKA and a hip fracture for which she underwent ORIF on 04/21. While in hospital recovering, patient developed altered mental status. Due to worsening mental status a stroke alert was called. Head CT showed large left MCA territory ischemic infarct with edema. Patient was transferred to the ICU by family medicine service and critical care consult was requested. At the time of evaluation in [facility], patient was opening her eyes however not following commands and had a dense right hemiplegia. Patient was also evaluated by Dr. Malave from neurology. At baseline, the patient lives with her daughter since her stroke in 2014 and does ambulate however has been having problems with memory and incontinence as well as gait difficulties. She does not feel patient would want intubation or tracheostomy or PEG tube. On 05/01/17 patient was intubated for severe hypoxemic respiratory failure from aspiration pneumonia. She also had a temp of 101 F. Blood culture and sputum culture with staph aureus sputum also growing GNR, WBC count 22,000 now indicating worsening sepsis. 05/06/[address] head with massive left MCA infarction and > 1 cm shift in right handed woman. Meanwhile patient is also being treated for C.glabrata UTI. At the time of my evaluation, patient is in [facility] on ventilator. She spontaneously opens eyes, did not follow commands for me. She underwent a CT A/ P which shows a left side pneumothorax. is placing a pigtail chest tube. She has a moser in place but no central line. ID is reconsulted for evaluation and Mment of Right side pneumonia with possible collapse lung, very MDR PSAE. Notes reviewed D/W RN Remains on vent. CPAP trial per [facility]. Overall clinically stable normal wbc, no fevers not much secretions. S/P bronch 10/03/17. Post Bronch CXR remarkably improved. Temps ok No rash No diarrrhea Antibiotics Current Medications Colistin nebs Medications (Trade) Dose Ordered Sig/Zeferino Route Start Time Stop Time Status Last Admin (Narcan Inj) 0.4 mg UNSCH PRN IV 04/20/17 17:15 (NS Flush) 2 ml BID IV FLUSH 04/24/17 21:00 10/04/17 21:00 (NS Flush) 2 ml UNSCH PRN IV FLUSH 04/24/17 09:30 09/17/17 08:48 (Aspirin) 325 mg DAILY DOBHOFF 04/27/17 09:00 10/04/17 08:44 (Prevacid Odt) 30 mg DAILY NG 05/08/17 09:00 10/04/17 08:44 (Glucagon Inj) 1 mg UNSCH PRN OTHER 05/21/17 13:15 (D50w (Syr) Inj) 50 ml UNSCH PRN IV PUSH 05/22/17 17:15 10/04/17 01:57 (Tears Naturale Opth Soln) 1 drop Q8HR EACH EYE 06/12/17 07:15 10/05/17 06:10 (Nitroglycerin 2% Oint) 2 inch Q6H PRN TOPICAL 06/21/17 08:00 06/30/17 14:37 (Heparin Inj) 5,000 units Q8HR SQ 07/15/17 08:00 10/05/17 06:09 (NovoLOG SUPPLEMENTAL SCALE) 1 Q6HR SQ 07/21/17 18:00 10/05/17 06:00 (Duoneb Neb) 1 ampule Q6HR NEB PRN NEB 08/10/17 14:00 10/04/17 22:37 (Pill Splitter) 1 ea UNSCH PRN OTHER 09/05/17 11:00 (Tylenol) 500 mg Q6H PRN PEG 09/16/17 16:15 09/16/17 16:36 (Apresoline) 10 mg Q8HR PEG 09/24/17 14:00 10/05/17 06:09 (Coly-Mycin M Neb) 75 mg Q8HR NEB NEB 09/30/17 16:00 10/04/17 22:38 (NovoLIN N INJ) 10 units TID SQ 10/02/17 09:00 Future Hold 10/03/17 18:43 (Norvasc) 10 mg DAILY PEG 10/04/17 09:00 10/04/17 08:45 (Oscal-D 250-125) 250 mg TID PEG 10/03/17 13:00 10/04/17 17:43 (Vitamin D3) 5,000 units DAILY PEG 10/04/17 09:00 10/04/17 08:44 (Catapres) 0.1 mg Q6H PRN PEG 10/03/17 12:30 (Cardura) 1 mg DAILY PEG 10/04/17 09:00 10/04/17 08:45 (Lactinex) 1 tab Q12HR PEG 10/03/17 21:00 10/04/17 21:00 (Lopressor) 12.5 mg Q12HR PEG 10/03/17 21:00 10/04/17 21:00 (Kayexalate Liq) 15 gm BID PEG 10/03/17 21:00 10/03/17 21:00 (Miralax) 17 gm DAILY PRN PEG 10/03/17 12:00 (Beneprotein Powder) 1 pack TID PRN G-TUBE 10/03/17 12:00 (Albuterol Neb) 2.5 mg Q2HR NEB PRN NEB 10/03/17 21:45 Dextrose 500 ml @ 10 mls/hr Q24H IV 10/03/17 23:00 10/04/17 15:49 (fentaNYL INJ) 50 mcg Q1H PRN IV PUSH 10/03/17 23:00 (Peridex 0.12% Liq) 15 ml BID@08,20 MT 10/04/17 08:00 10/04/17 20:00 (Lasix Inj) 40 mg Q6HR IV PUSH 10/04/17 12:00 10/05/17 06:09 Lines Line sites with no e.o infection. Past Medical History reviewed Allergies: Coded Allergies: No Known Allergies (Unverified , 04/20/17) Objective . Vital Signs Date Time Temp Pulse Resp B/P (MAP) Pulse Ox O2 Delivery O2 Flow Rate FiO2 10/08/17 11:20 98 30 10/08/17 08:00 30 10/08/17 08:00 98.2 73 18 120/64 (82) 97 10/08/17 08:00 70 10/08/17 07:59 98.2 87 18 120/64 (82) 97 10/08/17 07:35 98 30 10/08/17 05:42 99 30 10/08/17 04:00 30 10/08/17 04:00 97.6 73 18 135/69 (91) 97 10/08/17 00:52 97 30 10/08/17 00:00 30 10/08/17 00:00 97.6 64 18 136/72 (93) 97 10/07/17 21:56 99 30 10/07/17 20:00 70 10/07/17 20:00 98.3 70 16 118/57 (77) 97 10/07/17 20:00 30 10/07/17 19:26 99 30 10/07/17 16:47 99 30 10/07/17 16:00 98.6 65 18 114/59 (77) 99 10/07/17 16:00 30 10/07/17 13:25 30 . Laboratory Tests Test 10/07/17 09:15 10/08/17 07:05 White Blood Count 8.8 TH/MM3 8.2 TH/MM3 Red Blood Count 2.97 MIL/MM3 2.92 MIL/MM3 Hemoglobin 9.8 GM/DL 9.5 GM/DL Hematocrit 28.5 % 28.3 % Mean Corpuscular Volume 96.0 FL 96.8 FL Mean Corpuscular Hemoglobin 32.9 PG 32.6 PG Mean Corpuscular Hemoglobin Concent 34.3 % 33.7 % Red Cell Distribution Width 15.4 % 15.9 % Platelet Count 344 TH/MM3 332 TH/MM3 Mean Platelet Volume 8.9 FL 9.0 FL Neutrophils (%) (Auto) 59.8 % 69.9 % Lymphocytes (%) (Auto) 24.8 % 17.4 % Monocytes (%) (Auto) 9.4 % 6.8 % Eosinophils (%) (Auto) 4.8 % 4.9 % Basophils (%) (Auto) 1.2 % 1.0 % Neutrophils # (Auto) 5.3 TH/MM3 5.7 TH/MM3 Lymphocytes # (Auto) 2.2 TH/MM3 1.4 TH/MM3 Monocytes # (Auto) 0.8 TH/MM3 0.6 TH/MM3 Eosinophils # (Auto) 0.4 TH/MM3 0.4 TH/MM3 Basophils # (Auto) 0.1 TH/MM3 0.1 TH/MM3 CBC Comment AUTO DIFF AUTO DIFF Differential Total Cells Counted 100 100 Neutrophils % (Manual) 63 % 58 % Band Neutrophils % 13 % 13 % Lymphocytes % 14 % 13 % Monocytes % 6 % 8 % Eosinophils % 4 % 5 % Neutrophils # (Manual) 6.7 TH/MM3 6.1 TH/MM3 Differential Comment FINAL DIFF MANUAL FINAL DIFF MANUAL Platelet Estimate NORMAL NORMAL Platelet Morphology Comment NORMAL NORMAL Red Cell Morphology Comment NORMAL Metamyelocytes 2 % Myelocytes 1 % Laboratory Tests Test 10/07/17 09:15 10/08/17 07:05 Blood Urea Nitrogen 52 MG/DL 53 MG/DL Creatinine 0.72 MG/DL 0.68 MG/DL Random Glucose 155 MG/DL 369 MG/DL Calcium Level 9.0 MG/DL 9.5 MG/DL Sodium Level 138 MEQ/L 137 MEQ/L Potassium Level 3.7 MEQ/L 4.2 MEQ/L Chloride Level 99 MEQ/L 99 MEQ/L Carbon Dioxide Level 31.4 MEQ/L 31.5 MEQ/L Anion Gap 8 MEQ/L 7 MEQ/L Estimat Glomerular Filtration Rate 79 ML/MIN 84 ML/MIN Imaging Last Impressions Chest X-Ray 05/11/17 0000 Signed Impressions: Service Date/Time: Thursday, May 11, 2017 09:37 - CONCLUSION: 1. Small right pleural effusion. 2. Bilateral mid and lower lung zone predominant air space opacity could represent pulmonary edema given the appearance and distribution. Obdulio Sam MD Abdomen X-Ray 05/10/17 0000 Signed Impressions: Service Date/Time: Wednesday, May 10, 2017 22:08 - CONCLUSION: Tip of Dobbhoff catheter is in the antrum of the stomach. Sage Adler MD Gall Bladder Ultrasound 05/08/17 0000 Signed Impressions: Service Date/Time: May 08:23 - CONCLUSION: Focally unremarkable appearance of the gallbladder Obdulio Chun MD Abdomen/Pelvis CT 05/07/17 0000 Signed Impressions: Service Date/Time: Sunday, May 07, 2017 13:23 - CONCLUSION: 1. Large left pneumothorax. 2. Bilateral lower lobe consolidation and bilateral moderate size pleural effusions. 3. Significant soft tissue thickening of the right lateral chest wall and left gluteus muscle. 4. Mild ascites. The findings were called to Dr. Carney. Deangelo Zamora MD Head CT 05/06/17 0000 Signed Impressions: Service Date/Time: Saturday, May 06, 2017 04:18 - CONCLUSION: 1. Evolving large left-sided MCA territory infarct with minimally improved [id number] subfalcine shift. 2. No intercurrent hemorrhage or other acute abnormality. Alejo De La Vega MD Hip and Pelvis X-Ray 05/05/17 0000 Signed Impressions: Service Date/Time: Friday, May 05, 2017 10:59 - CONCLUSION: Left proximal femur trochanteric/subtrochanteric fracture lucency visualized. Postoperative changes. Choco Mustafa MD Chest CT 04/30/17 0000 Signed Impressions: Service Date/Time: Sunday, April 30, 2017 09:20 - CONCLUSION: 1. Bilateral pulmonary infiltrates more pronounced within the lower lobes with tiny bilateral pleural effusions. Material seen filling the lower lobe bronchi bilaterally either related to purulent material or perhaps mucus plugging. Deangelo Wren Jr., MD Carotid Artery Ultrasound 04/24/17 0000 Signed Impressions: Service Date/Time: April 09:45 - CONCLUSION: 1. No hemodynamically significant carotid artery stenosis. Arnie Middleton MD Hip X-Ray 04/21/17 0000 Signed Impressions: Service Date/Time: Friday, April 21, 2017 11:36 - CONCLUSION: Fluoroscopic images during placement of intramedullary siomara left femur. Benja Ramsey MD Physical Exam GENERAL: Thin built poorly nourished, NAD, on the vent SKIN: No generalized rash. Cool and dry. EYES: Pupils equal round and reactive. No scleral icterus. No injection or drainage. ENT: No nasal drainage, moist oral mucosa NECK: Trach site ok. CARDIOVASCULAR: Regular rate and rhythm without murmurs, gallops, or rubs. RESPIRATORY: Clear to auscultation. Breath sounds decreased R>L GASTROINTESTINAL: Abdomen soft, mildly distended. No tenderness. MUSCULOSKELETAL: Pedal edema. Generalized anasarca. NEUROLOGICAL:. Opens eyes, not tracking, Does not follow commands. Psych: could not be assessed. IV line sites with no e.o infection. Assessment & Plan Remarks Very MDR PSAE pneumonia (resistant to Avycaz and Zerbaxa and all other Cephalosporins and PCNs etc groups) E.coli and serratia in urine. Likely colonization. Likely mucus plugging. - S/P bronch - CXR better after bronch Left MCA infarction s/p neurological deficits. Recs: Continue Colistin nebs. Follow C/S Monitor progress Will not start any new Abx since she looks better post bronch Follow temps D/W Jane Bai MD Oct 08, 2017 12:02
[2017-10-08] MEDS: INSULIN DETEMIR 100 UNITS/ML VIAL SQ SCH (12:10)
[2017-10-08] MEDS: INSULIN NovoLIN REGULAR SUPPLEMENTAL SCALE SQ SCH ×2 (12:11→17:43)
--- NOTE | 2017-10-08 20:28 | HHI.PR ---
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 no fever Weekend events noted Back from ICU On PRVC AC16 Did't tolerate CPAP Daughter at [facility] Objective Vital Signs Vital Signs Date Time Temp Pulse Resp B/P (MAP) Pulse Ox O2 Delivery O2 Flow Rate FiO2 10/08/17 16:36 99 30 10/08/17 16:00 30 10/08/17 16:00 98.6 58 18 122/76 (91) 99 10/08/17 14:51 99 30 10/08/17 12:00 30 10/08/17 12:00 98.2 64 18 113/74 (87) 97 10/08/17 11:20 98 30 10/08/17 08:00 30 10/08/17 08:00 98.2 73 18 120/64 (82) 97 10/08/17 08:00 70 10/08/17 07:59 98.2 87 18 120/64 (82) 97 10/08/17 07:35 98 30 10/08/17 05:42 99 30 10/08/17 04:00 30 10/08/17 04:00 97.6 73 18 135/69 (91) 97 10/08/17 00:52 97 30 10/08/17 00:00 30 10/08/17 00:00 97.6 64 18 136/72 (93) 97 10/07/17 21:56 99 30 I/O 10/07/17 10/07/17 10/07/17 10/08/17 10/08/17 10/08/17 07:00 15:00 23:00 07:00 15:00 23:00 Intake Total 1309 ml 447 ml 386 ml 350 ml Output Total 1350 ml 850 ml 600 ml 650 ml Balance -41 ml -403 ml -214 ml -300 ml Intake Oral 0 ml Tube Feeding 1109 ml 447 ml 386 ml Autotransfusion 350 ml Other 200 ml Output Urine Total 1300 ml 450 ml 350 ml 450 ml Stool Total 50 ml 400 ml 250 ml 200 ml Result Diagram: 10/08/1770410/08/17704 Objective Remarks GENERAL: Elderly female,NAD SKIN: Warm and dry. HEAD: Normocephalic. EYES: No scleral icterus. No injection or drainage. NECK: Supple, trachea midline. No JVD or lymphadenopathy. CARDIOVASCULAR: Regular rate and rhythm without murmurs, gallops, or rubs. RESPIRATORY: Breath sounds equal bilaterally. No accessory muscle use. GASTROINTESTINAL: Abdomen soft, non-tender, nondistended. MUSCULOSKELETAL: No cyanosis, or edema. BACK: Nontender without obvious deformity. No CVA tenderness. A/P Assessment and Plan RF,S/P Trach CVA Pneumonia Pleural effusion Pseudomonas Tracheobronchitis, Hyperkalemia Hypoxia PLAN: Vent support Aerosol nebs Supplement 02 TF Mucomyst Nebs Abx per ID LAI RN at [facility] DW Daughter at [facility] Chris Rizo MD Oct 08, 2017 20:28
[2017-10-08] MEDS: RESP: ALBUTEROL 2.5 MG/3 ML NEB (PRN) NEB (22:26)
[2017-10-09] VITALS (12 sets, daily range): BP systolic 120–152; BP diastolic 59–94; PULSE 55–68; RESP 18–20; TEMP 97.9–99.1; O2SAT 96–99
[2017-10-09] MEDS: INSULIN DETEMIR 100 UNITS/ML VIAL SQ SCH ×3 (01:02→23:13)
[2017-10-09] MEDS: INSULIN NovoLIN REGULAR SUPPLEMENTAL SCALE SQ SCH ×5 (01:02→23:11)
[2017-10-09] MEDS: hydrALAZINE HCL 10 MG TAB PEG SCH ×3 (05:59→21:10)
[2017-10-09] MEDS: ARTIFICIAL TEARS OPTH SOLN 15 ML BTL EACH EYE SCH ×3 (05:59→21:11)
[2017-10-09] MEDS: HEPARIN SODIUM - SQ 10,000 UNITS/ML VIAL SQ SCH ×3 (05:59→21:11)
[2017-10-09 07:57] LABS: AUTOMATED NEUTROPHIL # 5.1 TH/MM3 (1.8-7.7); BASOPHIL # 0.1 TH/MM3 (0-0.2); BASOPHIL % 1.2 % (0.0-2.0); EOSINOPHIL # 0.7 TH/MM3 (0-0.4); EOSINOPHIL % 7.6 % (0.0-4.0); HEMATOCRIT 26.4 % (35.0-46.0); LYMPH % 22.7 % (9.0-44.0); MEAN CELL VOLUME 96.3 FL (80.0-100.0); MEAN CORPUSCULAR HGB CONC 34.2 % (32.0-36.0); MEAN PLATELET VOLUME 8.9 FL (7.0-11.0); MONO % 10.1 % (0.0-8.0); MONOCYTE # 0.9 TH/MM3 (0-0.9); NEUT % 58.4 % (16.0-70.0); PLATELET COUNT 309 TH/MM3 (150-450); RED BLOOD COUNT 2.74 MIL/MM3 (4.00-5.30); RED CELL DISTRIBUTION WIDTH 15.5 % (11.6-17.2); WHITE BLOOD COUNT 8.7 TH/MM3 (4.0-11.0)
[2017-10-09] MEDS: CHLORHEXIDINE 0.12% (ORAL KIT) 15 ML CUP MT SCH ×2 (08:00→20:00)
[2017-10-09 08:01] LABS: BICARBONATE 31.7 MEQ/L (21.0-32.0); CALCIUM 9.2 MG/DL (8.5-10.1); CREATININE 0.62 MG/DL (0.50-1.00)
[2017-10-09] MEDS: LANSOPRAZOLE SOLUTAB 30 MG TAB NG SCH (08:04)
[2017-10-09] MEDS: LACTOBACILLUS ACIDOPHILUS TAB PEG SCH ×2 (08:04→21:10)
[2017-10-09] MEDS: METOPROLOL TARTRATE 25 MG TAB PEG SCH ×2 (08:04→21:10)
[2017-10-09] MEDS: ASPIRIN 325 MG TAB DOBHOFF SCH (08:04)
[2017-10-09] MEDS: CHOLECALCIFEROL (VIT D3) 5000 UNIT CAP PEG SCH (08:04)
[2017-10-09] MEDS: INSULIN HUMAN NPH 1,000 UNITS/10 ML VIAL SQ SCH ×2 (08:05→17:00)
[2017-10-09] MEDS: DOXAZOSIN MESYLATE 1 MG TAB PEG SCH (08:05)
[2017-10-09] MEDS: RESP: ALBUTEROL 2.5 MG/IPRATROPIUM 0.5 MG NEB (PRN) NEB (08:20)
[2017-10-09] MEDS: RESP: COLISTIN 150 MG VIAL NEB SCH ×2 (08:20→17:29)
[2017-10-09] MEDS: SODIUM CHLORIDE 0.9% FLUSH 5 ML FLUSH IV FLUSH SCH ×2 (08:28→21:00)
[2017-10-09] MEDS: CALCIUM/VITAMIN D 250 MG/125 U TAB PEG SCH ×3 (08:35→18:00)
[2017-10-09 09:42] LABS: BANDS 14 % (0-6); LYMPHOCYTES 26 % (9-44); METAMYELOCYTES 1 % (0-1); MONOCYTES 9 % (0-8); MYELOCYTES 3 % (0-0); NEUTROPHIL # MANUAL DIFF 4.9 TH/MM3 (1.8-7.7); POLYS (SEG NEUTROPHILS) 38 % (16-70)
--- NOTE | 2017-10-09 09:46 | HHI.CCPN ---
Subjective Remarks/Hospital Course 04/24: 76-year-old female with a medical history significant for prior stroke, diabetes mellitus who was admitted with DKA and a hip fracture for which she underwent ORIF on 04/21. Patient developed altered mental status and was last noted to be okay around 5:30 AM. Subsequently there was a change in her mental status and she was noted to not be moving her right side for which stroke alert was called. Head CT showed large left MCA territory ischemic infarct with edema. Patient was transferred to the ICU by family medicine service in the critical care consult was requested. I evaluated the patient following arrival to the ICU. At that time she was laying in bed with her eyes open however not following commands and had a dense right hemiplegia. Patient was also evaluated by Dr. Malave from neurology. [facility] further discussed current event with patient's daughter following her arrival to the ICU. Per the daughter patient has been living with her since her stroke in 2014 and does ambulate however has been having problems with memory and incontinence as well as gait difficulties. She does not feel patient would want intubation or tracheostomy or PEG tube. 04/25: Patient remains encephalopathic, awake though not following commands consistently. Dense right hemiplegia persists. Appears to be awake enough to protect airway currently. Patient's daughter rescinded DNR and made a full code last evening. 04/26: Remains encephalopathic, not following commands. On Dobbhoff for tube feeds at 30 cc per hour. Had urinary retention and drained 2 L of urine after placing Moser catheter today. CT head done this morning with large left MCA territory infarct with left to right midline shift and significant cerebral edema. Hyperglycemia noted. Patient given mannitol earlier for increasing cerebral edema. 04/27: Remains encephalopathic, not following commands. On Dobbhoff tube feeds at 30 cc per hour. When into A. fib with RVR last night which responded with Lopressor 5 mg IV 1 dose. 04/28: Remains encephalopathic, arousable, not following commands. Moves left upper extremity spontaneously. Tolerating Dobbhoff tube feeds. Remains on nasal cannula. 04/29: Encephalopathic, eyes be arousable, moves left upper extremity spontaneously and occasionally opens eyes. Dense right hemiplegia and aphasia persists. On nasal cannula. Dobbhoff tube feeds being advanced. Patient was transfused 1 unit PRBCs yesterday. Urine culture with yeast from yesterday for which fluconazole being started. Had brief run of A. fib with RVR which improved with Lopressor IV, currently in sinus rhythm. 04/30: Worsening hypoxemic respiratory failure, currently on partial nonrebreather. Remains lethargic. WBC count increased from 14.6 today 20.7. Chest x-ray shows bilateral worsening infiltrates and small pleural effusions. Sodium 154, weight up by 8 KG. Albumin 1 mg Bumex 1. Also one dose of albumin. Remains in sinus tachycardia. Tmax 101.3 05/01: Patient was intubated yesterday for lack of airway protection, and severe hypoxemic respiratory failure from aspiration pneumonia involving multiple lobes. Patient is on the vent lethargic, no spontaneous eye opening. Chest x- ray remains unchanged. Remains intermittently febrile Tmax 101.3. WBC count improving 05/02: Remains critically ill with no improvement in mental status. Spiking fever of 101.7. Blood culture and sputum culture with staph aureus sputum also growing GNR, WBC count 22,000 now indicating worsening sepsis. Daughter still requesting aggressive care. Palliative care is following 05/03: S/P large area dominant hemisphere CVA. No neurological improvement. Now with pneumonia (infiltrate, fever, leukocytosis) and appropriate abx coverage. She will have a hard time surviving the hip fx, CVA, and pneumonia. Palliative Care needs to be a mainstay of our plan. 05/04: No improvement in neuro status. Sputum C&S allows us to narrow abx coverage to levaquin alone. Lungs remain quite congested. Enteral nutrition tolerated. 05/05: No improvement in neuro status. Moves left arm spontaneously. Flaccid right side. Unresponsive. Persistent mild hypoglycemia - will cut Levemir 50%. Abdomen more distended, check KUB. 05/06: CT head with massive left MCA infarction and > 1 cm shift in right handed woman. She opens eyes, does not track. 05/07: Patient open eyes. Attempts to respond. Finnish speaking. Tolerating tube feeds. Positive bowel movement. Volume overloaded. 05/08: Tmax 99.4. Potassium being replaced. Ultrasound gallbladder currently pending. Transaminases are trending downward. Gently diurese. 05/09: Alk phos decreasing. Remains with good urine output. Neurological status not improving. 05/10: Fixed neuro deficit unchanged. Profound CVA. 05/11: Appears to track with eyes today. No improvement in motor function. Remains very edematous, diuretics doubled. 05/12: Continued thick secretions. Afebrile, leukocytosis resolved. 05/13: CT head with completed left MCA stroke, persistent edema and 5 mm shift away. Does not last long on SBTs - major decision now is trach/PEG. 05/14: Daughter has decided to proceed with trach and PEG. I have been pessimistic with her about chances for a meaningful recovery. 05/15: Plan for trach today. No change in neuro status. Still ventilator dependent. 05/16: Trach completed. Await PEG and disposition. 05/17: PEG placed 05/16. Start TFs today after nutrition consult. Work to place patient. 05/18: No improvement. Does open eyes, no focus or tracking. Completed large dominant (left) hemisphere CVA in right handed woman with severe deficit. Medicaid pending status, [facility] is following. 05/19: no improvements in neuro exam. ready for LTAC. will d/c moser and rectal tubes. 05/20: no changes or improvements. very difficult placement due to patient not [place] citizen. 05/21: no improvements. resting on vent overnight due to distress. 05/22: no neurologic changes. no improvements. attempted T-piece which failed after 10 minutes. 05/23: no improvements. poor prognosis. poor neuro exam. still failing weaning trials. 05/24: no improvements or changes. still failing t-piece trials. 05/25: No acute changes of improvement overnight. Failed CPAP due to apnea, tried again currently tolerating. Neurological exam unchanged. 05/26: No improvement in neurological function. 05/27: Patient has required Moser catheter because of breakdown of skin on upper thighs and groin. Urine has become infected, will treat. 05/28: Some drainage from around trach (placed 2 weeks ago). Will change out trach tube and inspect neck wound. I&O straight cath q6h order entered 05/17. 05/29: No improvement, remains obtunded. Failed CPAP trials yesterday and again today due to apnea. Moser placed due to persistent urinary retention 05/30: Obtunded, unresponsive. Failed SBTs, remains ventilator dependent. 05/31: Patient continues to fail SBT failed yesterday due to apnea. Neuro exam remains unchanged. 06/01: No acute changes overnight, 06/02: no changes. ekg done overnight for ? EKG changes seen on telemetry which were not visualized on EKG. 06/03: no improvements or changes. had long conversation with daughter yesterday. only facility which would accept patient is in [place] and daughter is refusing to allow patient to go there because it is "too far away." Daughter continues to push for aggressive care despite no improvements, and resistant to Hospice. Patient does not need acute inpatient therapy but lacks funding for appropriate disposition. 06/04: No acute events overnight, failed SBT due to apnea. 06/05: No acute events, continues to fail spontaneous breathing trials. Unable to wean 06/06 Currently tolerating CPAP. Will attempt TP today up to 4 hours. No acute events overnight 06/07: Tolerating trach collar/T-piece. Transfer soon. 06/08: Awaiting transfer. 06/09: Remains ventilator dependent. No improvement in neurological function. 06/10: No improvement. Daughter is not attending preplanned meetings to discuss disposition 06/12: Afebrile. Neurologically stable and unchanged. Noted sodium 135. Adding sodium chloride tablets 1 today. Not on free water.. Tolerating tube feeds at goal 45 cc an hour. 06/13: No improvement in neurological function. 06/14: No improvement. Fluid balance correct. Gas exchange acceptable. 06/15: No improvement. Obtunded and unresponsive. 06/16: no improvements in mental status. KUB overnight with dilated small bowel loops. given methylnaltrexone and erythromycin. today abdomen is soft and tolerating tube feeds. 06/17: tolerated t-piece x 6 hours yesterday. rested on cpap overnight. no changes in encephalopathy. 06/18: Currently on ventilator overnight. Multiple bowel movements. Thick yellow secretions noted in ventilator circuit. Opens eyes. 06/19: Afebrile. Tolerating stretcher chair yesterday on PSV. Tolerating tube feeding. Neurologically unchanged. 06/20: Afebrile. Resting in bed in no acute distress in sitting position. Currently on ventilator set sitting. Tolerated stretcher chair/PSV trial 6 hours yesterday. Neurologically unchanged. 06/21: Tmax 100.8. Patient with copious thick yellow secretions. Tolerating tube feeds. Positive bowel movement. Lasted only 1 hour PSV yesterday 06/22: Tmax 99.9. Continues to have thick secretions. Tolerating tube feeding. Positive BM. 06/23: Afebrile. Continues to have thick tracheal secretions from tracheostomy site. Tolerating tube feeding. 3 bowels movements. Opens eyes to stimulation. Stares at you but does not follow commands. 06/24: Remains encephalopathic, on mechanical ventilation via tracheostomy. Tolerating PEG feeds 06/25: Remains encephalopathic on mechanical ventilation. Tolerated C Pap +5 with pressure support +10 all day yesterday. Tolerating PEG feeds. 06/26: No improvement.Vent dependent still. 06/27: Remains encephalopathic, on mech vent via trach. Daily CPAP trials. 06/28: Unable to wean from ventilator. 06/29: Neurologically unchanged. Remains on mechanical ventilation. Daily C Pap trials ongoing. 06/30: Remains encephalopathic. On C Pap overnight. Tolerating tube feeds. 07/01: No change in neurologic status. On mechanical ventilation via tracheostomy. Tolerating tube feeds. 07/02: Remains encephalopathic. No change in neurologic status. On mechanical ventilation via tracheostomy. Daily C Pap trials ongoing. 07/03: Occasional spontaneous eye opening however remains encephalopathic. On mechanical ventilation via tracheostomy. 07/04: Tmax 99.2. Multiple bowel movements overnight. Tolerating tube feeds. On T piece trial at 5 L since noon yesterday. Otherwise neurologically unchanged. Daughter encouraged by movement of left leg. 07/05: Currently resting in bed on T piece 36 hours. Tolerates chair. No changes neurologically. Positive BM's. Tolerating her tube feeding. 07/06: Continue T-piece trials, if tolerated consider transfer to floor. 07/07: Extended T-piece trial. Plan transfer to floor. 07/09: Patient is experiencing apnea episodes and had to be placed back on higher FiO2.. Hold transfer. 07/10: X-ray left hip shows good anatomic alignment. Still requiring elevated FiO2. 07/11: Prealbumin 20, nutritional support is adequate and status is stable. No neurological improvement. 07/12: No improvement in neurological function. Continued acceptable respiratory effort. 07/13: No change. Subjective 10/03/17 Dr. Rizo notified pug mill operator helper that patient would be transferring to ICU. Patient is known to [facility] service. She was originally admitted 04/20/17 after a fall with hip fracture resulting in ORIF 04/21. Postoperatively, she developed large R MCA stroke with midline shift. Her neurologic condition remained poor and she underwent trach 05/15/17 and PEG 05/16/17. She was eventually transitioned to Tpiece and transferred to floor. She has suffered from multiple infectious complications due to her persistent bedfast and trach dependent state. 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 She has been on trach collar with worsening hypoxemia therefore she is transferred to [facility]. CXR from yesterday demonstrates bilateral pulmonary infiltrates. She has also had hyperkalemia today up to 6.7 which has been treated with kayexalate, down to 6. 2/: improvement in air space disease with diuresis and bronch yesterday. no overall improvements in chronic poor prognosis. unlikely to survive this hospital stay. daughter has poor insight into the gravity of her mother's medical condition. she will not recover meaningfully. 10/05: continuing to clinically improve from a respiratory standpoint. no improvements in overall poor function. off vent on t-piece today. can likely transition out of ICU tomorrow. 10/06 No events overnight. Remains on ventilator via trach. Afebrile. 10/07 No events overnight. Afebrile. 10/08 Patient is on ventilator via trach. afebrile. 10/09 No events overnight. Tolerating tube feeds. Afebrile. Objective Vital Signs Date Time Temp Pulse Resp B/P (MAP) Pulse Ox O2 Delivery O2 Flow Rate FiO2 10/09/17 08:22 99 30 10/09/17 08:00 97.9 59 18 152/68 (96) 10/05/17 09:35 T-piece 6.00 Intake and Output 10/09/17 10/09/17 10/10/17 08:00 16:00 00:00 Intake Total 675 ml Output Total 900 ml Balance -225 ml Result Diagram: 10/09/17 0700 10/09/17 0700 Other Results Laboratory Tests Test 10/09/17 07:00 White Blood Count 8.7 TH/MM3 Red Blood Count 2.74 MIL/MM3 Hemoglobin 9.0 GM/DL Hematocrit 26.4 % Mean Corpuscular Volume 96.3 FL Mean Corpuscular Hemoglobin 33.0 PG Mean Corpuscular Hemoglobin Concent 34.2 % Red Cell Distribution Width 15.5 % Platelet Count 309 TH/MM3 Mean Platelet Volume 8.9 FL Neutrophils (%) (Auto) 58.4 % Lymphocytes (%) (Auto) 22.7 % Monocytes (%) (Auto) 10.1 % Eosinophils (%) (Auto) 7.6 % Basophils (%) (Auto) 1.2 % Neutrophils # (Auto) 5.1 TH/MM3 Lymphocytes # (Auto) 2.0 TH/MM3 Monocytes # (Auto) 0.9 TH/MM3 Eosinophils # (Auto) 0.7 TH/MM3 Basophils # (Auto) 0.1 TH/MM3 CBC Comment AUTO DIFF Differential Total Cells Counted 100 Neutrophils % (Manual) 38 % Band Neutrophils % 14 % Lymphocytes % 26 % Monocytes % 9 % Eosinophils % 9 % Neutrophils # (Manual) 4.9 TH/MM3 Metamyelocytes 1 % Myelocytes 3 % Differential Comment FINAL DIFF MANUAL Platelet Estimate NORMAL Platelet Morphology Comment NORMAL Blood Urea Nitrogen 56 MG/DL Creatinine 0.62 MG/DL Random Glucose 99 MG/DL Calcium Level 9.2 MG/DL Sodium Level 142 MEQ/L Potassium Level 4.0 MEQ/L Chloride Level 105 MEQ/L Carbon Dioxide Level 31.7 MEQ/L Anion Gap 5 MEQ/L Estimat Glomerular Filtration Rate 94 ML/MIN Imaging Last Impressions Chest X-Ray 10/04/17 0900 Signed Impressions: Service Date/Time: Wednesday, October 04, 2017 08:53 - CONCLUSION: Significant improvement with almost complete resolution of bilateral airspace disease. Benja Ramsey MD Thoracentesis 08/05/17 1535 Signed Impressions: Service Date/Time: Saturday, August 05, 2017 16:08 - CONCLUSION: Uncomplicated CT-guided thoracentesis. Sage Adler MD Chest Ultrasound 08/02/17 0000 Signed Impressions: Service Date/Time: Tuesday, August 01, 2017 22:06 - CONCLUSION: 1. Moderate right pleural effusion, as above. Alejo De La Vega MD Hip and Pelvis X-Ray 07/09/17 0000 Signed Impressions: Service Date/Time: Sunday, July 09, 2017 14:04 - CONCLUSION: Anatomic alignment. Ricardo Middleton MD FACR Liver Ultrasound 06/19/17 0000 Signed Impressions: Service Date/Time: June 13:20 - CONCLUSION: 1. Mildly increased echotexture of the liver characteristic of hepatic steatosis. 2. Gallbladder sludge. Obdulio Sam MD Abdomen X-Ray 06/16/17 0000 Signed Impressions: Service Date/Time: Friday, June 16, 2017 04:48 - CONCLUSION: 1. Continued small bowel ileus. There has been no significant change when compared to the prior exam. Toy Duran MD Head CT 05/15/17 0000 Signed Impressions: Service Date/Time: May 19:59 - CONCLUSION: 1. 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 2. No bleed or new/acute infarct. Obdulio Simms MD Gall Bladder Ultrasound 05/08/17 0000 Signed Impressions: Service Date/Time: May 08:23 - CONCLUSION: Focally unremarkable appearance of the gallbladder Obdulio Chun MD Abdomen/Pelvis CT 05/07/17 0000 Signed Impressions: Service Date/Time: Sunday, May 07, 2017 13:23 - CONCLUSION: 1. Large left pneumothorax. 2. Bilateral lower lobe consolidation and bilateral moderate size pleural effusions. 3. Significant soft tissue thickening of the right lateral chest wall and left gluteus muscle. 4. Mild ascites. The findings were called to Dr. Carney. Deangelo Zamora MD Chest CT 04/30/17 0000 Signed Impressions: Service Date/Time: Sunday, April 30, 2017 09:20 - CONCLUSION: 1. Bilateral pulmonary infiltrates more pronounced within the lower lobes with tiny bilateral pleural effusions. Material seen filling the lower lobe bronchi bilaterally either related to purulent material or perhaps mucus plugging. Deangelo Wren Jr., MD Carotid Artery Ultrasound 04/24/17 0000 Signed Impressions: Service Date/Time: April 09:45 - CONCLUSION: 1. No hemodynamically significant carotid artery stenosis. Arnie Middleton MD Hip X-Ray 04/21/17 0000 Signed Impressions: Service Date/Time: Friday, April 21, 2017 11:36 - CONCLUSION: Fluoroscopic images during placement of intramedullary siomara left femur. Benja Ramsey MD Objective Remarks GENERAL: Elderly female who is laying in [facility] bed on trach collar SKIN: Warm and dry, adequately perfused. HEAD: Atraumatic. Normocephalic. mucous membranes moist. NECK: 8.[address] Trachea midline. No JVD. CARDIOVASCULAR: Regular rate and rhythm, sinus on the monitor. RESPIRATORY: unlabored. no accessory muscle use. trach collar. GASTROINTESTINAL: Abdomen soft, non-tender, nondistended. PEG in place with tube feeds running, site benign appearing. MUSCULOSKELETAL: Extremities without clubbing, cyanosis, or edema. No obvious deformities. NEUROLOGICAL: Eyes open spontaneously, does not appear to track. L gaze preference. R hemiparesis. Localizes with LUE. Very slight withdrawal of LLE to noxious stimuli. A/P Assessment and Plan Neuro/Psych: Left MCA CVA - 5.5 mm of [id number] subfalcine herniation, diagnosed 04/24. Persistent right-sided hemiparesis. Prior History of stroke Continue Aspirin 325 mg by tube daily. Stroke occurred 04/24/17. Patient was not a candidate for thrombolysis per discussion with neurology and radiology at that time. Repeat head CT 05/15 showed slight improvement in the midline shift now 5.5 mm and mass effect Neurosurgery consulted 04/30- Dr. López, recommended conservative management, now signed off. Neurology Dr. Malave has followed previously, signed off. Cardiovascular: Hypertension Norvasc 10 mg po daily, Cardura 1 mg peg daily, metoprolol 12.5 peg bid, hydralazine 10 mg per per peg q8 hours. clonidine prn SBP >160 Echo showed EF 25-30%, Grade I diastolic disfunction Pulmonary: Chronic Tracheostomy Now recurrent Acute hypoxemic respiratory failure Acute hypoxic respiratory failure - aspiration possible HCAP - previous episode resolved. Large left pneumothorax status post #10 Iranian chest tube 05/07 - resolved.Chest tube d/c'd 05/12/17 R pleural effusion - Continue with vent support keep sat >92% Ipratropium/albuterol aerosols every 6 hours with albuterol aerosols every 2 hours Pulm toilet, trach care SBT daily as gato Pulm is following GI/liver: Elevated transaminases, resolved Severe protein calorie malnutrition Small bowel ileus- resolved Hepatitis C antibody positive with negative genotype/viral load Hepatic steatosis Currently on PEG tube feeding with Glucerna 1.5 goal 45 cc an hour. Beneprotein tid. Lansoprazole 30 mg daily for GI regimen Docusate sodium 100 mg twice a day for bowel regimen can be held while on kayexalate. Endocrine: Diabetes mellitus SSI high scale-dose every 6 hours , Levemir 7u Q12 /Renal/FEN: Monitor renal function. I/O's, electrolytes replacement as needed Heme: Chronic Rivaroxaban use prior to admission Leukocytosis Normocytic anemia Follow CBC and coags. ID: MDR Pseudomonas aeruginosa and pneumonia (HCAP) MSSA bacteremia - resolved. Serratia/staph aureus pneumonia - resolved. C glabrata UTI - resolved. Citrobacter UTI - resolved. Serratia/MSSA sputum VAP resolved Current relevant cultures: 09/25/17 -sputum culture - Pseudomonas aeruginosa, multidrug resistant ( including Zerbaxa and Avycaz resistance). On Colistin nebs started 09/30 Per ID, Dr. Ranjan Saleh Prior cultures: Urine culture 04/26/17 sofie glabrata Blood culture 04/29/17 1 out of 4 bottles staph aureus Sputum culture 04/30/17 MSSA and Serratia. urine 05/07-> Serratia, treated. Urine 05/25: Citrobacter MSK: Left Intertroch Hip Fx s/p IMN 04/21/17. Vitamin D deficiency Sacral decubitus ulcer, Previously stage III, healing. Continue calcium vitamin D 250/125 one tablet 3x a day and cholecalciferol 5000 units daily. PT/OT evaluate and treat Maxsorb every 3 days/dressing changes every 3 days per wound care Continue bene protein one packet 3x a day Prophylaxis: SCDs. Heparin 5000 subcut q8 hours. GI - lansoprazole 30 mg by PEG tube daily ACCESS: PIV. Level 2 Kristel Durant MD Oct 09, 2017 09:46
--- NOTE | 2017-10-09 19:55 | HHI.PR ---
Subjective Remarks 76 YO Frail female with RF,Trach,CVA no fever On PRVC AC16 Did't tolerate CPAP Alert, awake, looks around Objective Vital Signs Vital Signs Date Time Temp Pulse Resp B/P (MAP) Pulse Ox O2 Delivery O2 Flow Rate FiO2 10/09/17 16:00 30 10/09/17 16:00 99.1 64 20 130/94 (106) 99 10/09/17 12:00 30 10/09/17 12:00 98.5 57 18 123/59 (80) 98 10/09/17 11:16 30 10/09/17 10:45 99 30 10/09/17 08:22 99 30 10/09/17 08:00 97.9 59 18 152/68 (96) 98 10/09/17 08:00 59 10/09/17 08:00 30 10/09/17 04:15 98 30 10/09/17 04:00 98.5 55 18 152/71 (98) 99 10/09/17 04:00 30 10/09/17 01:46 96 30 10/09/17 00:00 30 10/09/17 00:00 98.6 66 20 152/67 (95) 96 10/08/17 22:23 98 30 10/08/17 20:00 30 10/08/17 20:00 98.6 66 18 138/63 (88) 99 10/08/17 20:00 66 I/O 10/08/17 10/08/17 10/08/17 10/09/17 10/09/17 10/09/17 07:00 15:00 23:00 07:00 15:00 23:00 Intake Total 386 ml 350 ml 675 ml 677 ml Output Total 600 ml 650 ml 900 ml 300 ml Balance -214 ml -300 ml -225 ml 377 ml Intake Oral 0 ml 0 ml Tube Feeding 386 ml Autotransfusion 350 ml 475 ml 477 ml Other 200 ml 200 ml Output Urine Total 350 ml 450 ml 800 ml 300 ml Stool Total 250 ml 200 ml 100 ml 0 ml Result Diagram: 10/09/17 0700 10/09/17 0700 Objective Remarks GENERAL: Elderly female,NAD SKIN: Warm and dry. HEAD: Normocephalic. EYES: No scleral icterus. No injection or drainage. NECK: Supple, trachea midline. No JVD or lymphadenopathy. CARDIOVASCULAR: Regular rate and rhythm without murmurs, gallops, or rubs. RESPIRATORY: Breath sounds equal bilaterally. No accessory muscle use. GASTROINTESTINAL: Abdomen soft, non-tender, nondistended. MUSCULOSKELETAL: No cyanosis, or edema. BACK: Nontender without obvious deformity. No CVA tenderness. A/P Assessment and Plan RF,S/P Trach CVA Pneumonia Pleural effusion Pseudomonas Tracheobronchitis, Hyperkalemia Hypoxia PLAN: Vent support Aerosol nebs Supplement 02 TF Abx per ID LAI RN at Chris Rizo MD Oct 09, 2017 19:55
[2017-10-10] VITALS (12 sets, daily range): BP systolic 126–156; BP diastolic 56–85; PULSE 63–73; RESP 16–19; TEMP 97.7–99.1; O2SAT 96–99
[2017-10-10] MEDS: RESP: COLISTIN 150 MG VIAL NEB SCH ×4 (01:17→23:53)
[2017-10-10] MEDS: hydrALAZINE HCL 10 MG TAB PEG SCH ×3 (04:38→22:34)
[2017-10-10] MEDS: ARTIFICIAL TEARS OPTH SOLN 15 ML BTL EACH EYE SCH ×3 (04:38→22:00)
[2017-10-10] MEDS: HEPARIN SODIUM - SQ 10,000 UNITS/ML VIAL SQ SCH ×3 (04:38→22:35)
[2017-10-10] MEDS: INSULIN NovoLIN REGULAR SUPPLEMENTAL SCALE SQ SCH ×4 (06:00→23:13)
[2017-10-10 06:03] LABS: AUTOMATED NEUTROPHIL # 4.9 TH/MM3 (1.8-7.7); BASOPHIL # 0.1 TH/MM3 (0-0.2); EOSINOPHIL # 0.7 TH/MM3 (0-0.4); EOSINOPHIL % 7.9 % (0.0-4.0); HEMATOCRIT 29.4 % (35.0-46.0); LYMPH % 22.1 % (9.0-44.0); LYMPHOCYTE # 1.8 TH/MM3 (1.0-4.8); MEAN CORPUSCULAR HEMOGLOBIN 32.5 PG (27.0-34.0); MEAN CORPUSCULAR HGB CONC 33.8 % (32.0-36.0); MEAN PLATELET VOLUME 8.9 FL (7.0-11.0); MONO % 10.1 % (0.0-8.0); MONOCYTE # 0.8 TH/MM3 (0-0.9); NEUT % 58.9 % (16.0-70.0); PLATELET COUNT 342 TH/MM3 (150-450); RED BLOOD COUNT 3.07 MIL/MM3 (4.00-5.30); RED CELL DISTRIBUTION WIDTH 15.7 % (11.6-17.2); WHITE BLOOD COUNT 8.3 TH/MM3 (4.0-11.0)
[2017-10-10 06:33] LABS: BICARBONATE 29.9 MEQ/L (21.0-32.0); CALCIUM 9.6 MG/DL (8.5-10.1); CREATININE 0.62 MG/DL (0.50-1.00)
[2017-10-10 07:04] LABS: BANDS 19 % (0-6); BASOPHILS 1 % (0-2); LYMPHOCYTES 16 % (9-44); MONOCYTES 7 % (0-8); MYELOCYTES 4 % (0-0); NEUTROPHIL # MANUAL DIFF 5.4 TH/MM3 (1.8-7.7); POLYS (SEG NEUTROPHILS) 42 % (16-70)
[2017-10-10] MEDS: LACTOBACILLUS ACIDOPHILUS TAB PEG SCH ×2 (08:05→22:34)
[2017-10-10] MEDS: LANSOPRAZOLE SOLUTAB 30 MG TAB NG SCH (08:05)
[2017-10-10] MEDS: CALCIUM/VITAMIN D 250 MG/125 U TAB PEG SCH ×3 (08:05→17:54)
[2017-10-10] MEDS: INSULIN HUMAN NPH 1,000 UNITS/10 ML VIAL SQ SCH (08:05)
[2017-10-10] MEDS: ASPIRIN 325 MG TAB DOBHOFF SCH (08:05)
[2017-10-10] MEDS: METOPROLOL TARTRATE 25 MG TAB PEG SCH ×2 (08:05→22:35)
[2017-10-10] MEDS: DOXAZOSIN MESYLATE 1 MG TAB PEG SCH (08:05)
[2017-10-10] MEDS: SODIUM CHLORIDE 0.9% FLUSH 5 ML FLUSH IV FLUSH SCH ×2 (08:06→21:00)
[2017-10-10] MEDS: CHLORHEXIDINE 0.12% (ORAL KIT) 15 ML CUP MT SCH ×2 (08:06→22:36)
--- NOTE | 2017-10-10 11:37 | HHI.CCPN ---
Subjective Remarks/Hospital Course 04/24: 76-year-old female with a medical history significant for prior stroke, diabetes mellitus who was admitted with DKA and a hip fracture for which she underwent ORIF on 04/21. Patient developed altered mental status and was last noted to be okay around 5:30 AM. Subsequently there was a change in her mental status and she was noted to not be moving her right side for which stroke alert was called. Head CT showed large left MCA territory ischemic infarct with edema. Patient was transferred to the ICU by family medicine service in the critical care consult was requested. I evaluated the patient following arrival to the ICU. At that time she was laying in bed with her eyes open however not following commands and had a dense right hemiplegia. Patient was also evaluated by Dr. Malave from neurology. [facility] further discussed current event with patient's daughter following her arrival to the ICU. Per the daughter patient has been living with her since her stroke in 2014 and does ambulate however has been having problems with memory and incontinence as well as gait difficulties. She does not feel patient would want intubation or tracheostomy or PEG tube. 04/25: Patient remains encephalopathic, awake though not following commands consistently. Dense right hemiplegia persists. Appears to be awake enough to protect airway currently. Patient's daughter rescinded DNR and made a full code last evening. 04/26: Remains encephalopathic, not following commands. On Dobbhoff for tube feeds at 30 cc per hour. Had urinary retention and drained 2 L of urine after placing Moser catheter today. CT head done this morning with large left MCA territory infarct with left to right midline shift and significant cerebral edema. Hyperglycemia noted. Patient given mannitol earlier for increasing cerebral edema. 04/27: Remains encephalopathic, not following commands. On Dobbhoff tube feeds at 30 cc per hour. When into A. fib with RVR last night which responded with Lopressor 5 mg IV 1 dose. 04/28: Remains encephalopathic, arousable, not following commands. Moves left upper extremity spontaneously. Tolerating Dobbhoff tube feeds. Remains on nasal cannula. 04/29: Encephalopathic, eyes be arousable, moves left upper extremity spontaneously and occasionally opens eyes. Dense right hemiplegia and aphasia persists. On nasal cannula. Dobbhoff tube feeds being advanced. Patient was transfused 1 unit PRBCs yesterday. Urine culture with yeast from yesterday for which fluconazole being started. Had brief run of A. fib with RVR which improved with Lopressor IV, currently in sinus rhythm. 04/30: Worsening hypoxemic respiratory failure, currently on partial nonrebreather. Remains lethargic. WBC count increased from 14.6 today 20.7. Chest x-ray shows bilateral worsening infiltrates and small pleural effusions. Sodium 154, weight up by 8 KG. Albumin 1 mg Bumex 1. Also one dose of albumin. Remains in sinus tachycardia. Tmax 101.3 05/01: Patient was intubated yesterday for lack of airway protection, and severe hypoxemic respiratory failure from aspiration pneumonia involving multiple lobes. Patient is on the vent lethargic, no spontaneous eye opening. Chest x- ray remains unchanged. Remains intermittently febrile Tmax 101.3. WBC count improving 05/02: Remains critically ill with no improvement in mental status. Spiking fever of 101.7. Blood culture and sputum culture with staph aureus sputum also growing GNR, WBC count 22,000 now indicating worsening sepsis. Daughter still requesting aggressive care. Palliative care is following 05/03: S/P large area dominant hemisphere CVA. No neurological improvement. Now with pneumonia (infiltrate, fever, leukocytosis) and appropriate abx coverage. She will have a hard time surviving the hip fx, CVA, and pneumonia. Palliative Care needs to be a mainstay of our plan. 05/04: No improvement in neuro status. Sputum C&S allows us to narrow abx coverage to levaquin alone. Lungs remain quite congested. Enteral nutrition tolerated. 05/05: No improvement in neuro status. Moves left arm spontaneously. Flaccid right side. Unresponsive. Persistent mild hypoglycemia - will cut Levemir 50%. Abdomen more distended, check KUB. 05/06: CT head with massive left MCA infarction and > 1 cm shift in right handed woman. She opens eyes, does not track. 05/07: Patient open eyes. Attempts to respond. Citizen Of [place] speaking. Tolerating tube feeds. Positive bowel movement. Volume overloaded. 05/08: Tmax 99.4. Potassium being replaced. Ultrasound gallbladder currently pending. Transaminases are trending downward. Gently diurese. 05/09: Alk phos decreasing. Remains with good urine output. Neurological status not improving. 05/10: Fixed neuro deficit unchanged. Profound CVA. 05/11: Appears to track with eyes today. No improvement in motor function. Remains very edematous, diuretics doubled. 05/12: Continued thick secretions. Afebrile, leukocytosis resolved. 05/13: CT head with completed left MCA stroke, persistent edema and 5 mm shift away. Does not last long on SBTs - major decision now is trach/PEG. 05/14: Daughter has decided to proceed with trach and PEG. I have been pessimistic with her about chances for a meaningful recovery. 05/15: Plan for trach today. No change in neuro status. Still ventilator dependent. 05/16: Trach completed. Await PEG and disposition. 05/17: PEG placed 05/16. Start TFs today after nutrition consult. Work to place patient. 05/18: No improvement. Does open eyes, no focus or tracking. Completed large dominant (left) hemisphere CVA in right handed woman with severe deficit. Medicaid pending status, [facility] is following. 05/19: no improvements in neuro exam. ready for LTAC. will d/c moser and rectal tubes. 05/20: no changes or improvements. very difficult placement due to patient not [place] citizen. 05/21: no improvements. resting on vent overnight due to distress. 05/22: no neurologic changes. no improvements. attempted T-piece which failed after 10 minutes. 05/23: no improvements. poor prognosis. poor neuro exam. still failing weaning trials. 05/24: no improvements or changes. still failing t-piece trials. 05/25: No acute changes of improvement overnight. Failed CPAP due to apnea, tried again currently tolerating. Neurological exam unchanged. 05/26: No improvement in neurological function. 05/27: Patient has required Moser catheter because of breakdown of skin on upper thighs and groin. Urine has become infected, will treat. 05/28: Some drainage from around trach (placed 2 weeks ago). Will change out trach tube and inspect neck wound. I&O straight cath q6h order entered 05/17. 05/29: No improvement, remains obtunded. Failed CPAP trials yesterday and again today due to apnea. Moser placed due to persistent urinary retention 05/30: Obtunded, unresponsive. Failed SBTs, remains ventilator dependent. 05/31: Patient continues to fail SBT failed yesterday due to apnea. Neuro exam remains unchanged. 06/01: No acute changes overnight, 06/02: no changes. ekg done overnight for ? EKG changes seen on telemetry which were not visualized on EKG. 06/03: no improvements or changes. had long conversation with daughter yesterday. only facility which would accept patient is in [place] and daughter is refusing to allow patient to go there because it is "too far away." Daughter continues to push for aggressive care despite no improvements, and resistant to Hospice. Patient does not need acute inpatient therapy but lacks funding for appropriate disposition. 06/04: No acute events overnight, failed SBT due to apnea. 06/05: No acute events, continues to fail spontaneous breathing trials. Unable to wean 06/06 Currently tolerating CPAP. Will attempt TP today up to 4 hours. No acute events overnight 06/07: Tolerating trach collar/T-piece. Transfer soon. 06/08: Awaiting transfer. 06/09: Remains ventilator dependent. No improvement in neurological function. 06/10: No improvement. Daughter is not attending preplanned meetings to discuss disposition 06/12: Afebrile. Neurologically stable and unchanged. Noted sodium 135. Adding sodium chloride tablets 1 today. Not on free water.. Tolerating tube feeds at goal 45 cc an hour. 06/13: No improvement in neurological function. 06/14: No improvement. Fluid balance correct. Gas exchange acceptable. 06/15: No improvement. Obtunded and unresponsive. 06/16: no improvements in mental status. KUB overnight with dilated small bowel loops. given methylnaltrexone and erythromycin. today abdomen is soft and tolerating tube feeds. 06/17: tolerated t-piece x 6 hours yesterday. rested on cpap overnight. no changes in encephalopathy. 06/18: Currently on ventilator overnight. Multiple bowel movements. Thick yellow secretions noted in ventilator circuit. Opens eyes. 06/19: Afebrile. Tolerating stretcher chair yesterday on PSV. Tolerating tube feeding. Neurologically unchanged. 06/20: Afebrile. Resting in bed in no acute distress in sitting position. Currently on ventilator set sitting. Tolerated stretcher chair/PSV trial 6 hours yesterday. Neurologically unchanged. 06/21: Tmax 100.8. Patient with copious thick yellow secretions. Tolerating tube feeds. Positive bowel movement. Lasted only 1 hour PSV yesterday 06/22: Tmax 99.9. Continues to have thick secretions. Tolerating tube feeding. Positive BM. 06/23: Afebrile. Continues to have thick tracheal secretions from tracheostomy site. Tolerating tube feeding. 3 bowels movements. Opens eyes to stimulation. Stares at you but does not follow commands. 06/24: Remains encephalopathic, on mechanical ventilation via tracheostomy. Tolerating PEG feeds 06/25: Remains encephalopathic on mechanical ventilation. Tolerated C Pap +5 with pressure support +10 all day yesterday. Tolerating PEG feeds. 06/26: No improvement.Vent dependent still. 06/27: Remains encephalopathic, on mech vent via trach. Daily CPAP trials. 06/28: Unable to wean from ventilator. 06/29: Neurologically unchanged. Remains on mechanical ventilation. Daily C Pap trials ongoing. 06/30: Remains encephalopathic. On C Pap overnight. Tolerating tube feeds. 07/01: No change in neurologic status. On mechanical ventilation via tracheostomy. Tolerating tube feeds. 07/02: Remains encephalopathic. No change in neurologic status. On mechanical ventilation via tracheostomy. Daily C Pap trials ongoing. 07/03: Occasional spontaneous eye opening however remains encephalopathic. On mechanical ventilation via tracheostomy. 07/04: Tmax 99.2. Multiple bowel movements overnight. Tolerating tube feeds. On T piece trial at 5 L since noon yesterday. Otherwise neurologically unchanged. Daughter encouraged by movement of left leg. 07/05: Currently resting in bed on T piece 36 hours. Tolerates chair. No changes neurologically. Positive BM's. Tolerating her tube feeding. 07/06: Continue T-piece trials, if tolerated consider transfer to floor. 07/07: Extended T-piece trial. Plan transfer to floor. 07/09: Patient is experiencing apnea episodes and had to be placed back on higher FiO2.. Hold transfer. 07/10: X-ray left hip shows good anatomic alignment. Still requiring elevated FiO2. 07/11: Prealbumin 20, nutritional support is adequate and status is stable. No neurological improvement. 07/12: No improvement in neurological function. Continued acceptable respiratory effort. 07/13: No change. Subjective 10/03/17 Dr. Rizo notified elementary reading specialist that patient would be transferring to ICU. Patient is known to [facility] service. She was originally admitted 04/20/17 after a fall with hip fracture resulting in ORIF 04/21. Postoperatively, she developed large R MCA stroke with midline shift. Her neurologic condition remained poor and she underwent trach 05/15/17 and PEG 05/16/17. She was eventually transitioned to Tpiece and transferred to floor. She has suffered from multiple infectious complications due to her persistent bedfast and trach dependent state. 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 She has been on trach collar with worsening hypoxemia therefore she is transferred to [facility]. CXR from yesterday demonstrates bilateral pulmonary infiltrates. She has also had hyperkalemia today up to 6.7 which has been treated with kayexalate, down to 6. 2/3: improvement in air space disease with diuresis and bronch yesterday. no overall improvements in chronic poor prognosis. unlikely to survive this hospital stay. daughter has poor insight into the gravity of her mother's medical condition. she will not recover meaningfully. 2: continuing to clinically improve from a respiratory standpoint. no improvements in overall poor function. off vent on t-piece today. can likely transition out of ICU tomorrow. 10/06 No events overnight. Remains on ventilator via trach. Afebrile. 10/07 No events overnight. Afebrile. 10/08 Patient is on ventilator via trach. afebrile. 10/09 No events overnight. Tolerating tube feeds. Afebrile. 10/10 Patient is on ventilators via trach. Objective Vital Signs Date Time Temp Pulse Resp B/P (MAP) Pulse Ox O2 Delivery O2 Flow Rate FiO2 10/10/17 09:12 99 30 10/10/17 08:00 98.7 70 18 156/83 (107) Intake and Output 10/10/17 10/10/17 10/11/17 08:00 16:00 00:00 Intake Total 688 ml Output Total 800 ml Balance -112 ml Result Diagram: 10/10/17 0510 10/10/17 0510 Other Results Laboratory Tests Test 10/10/17 05:10 White Blood Count 8.3 TH/MM3 Red Blood Count 3.07 MIL/MM3 Hemoglobin 10.0 GM/DL Hematocrit 29.4 % Mean Corpuscular Volume 96.0 FL Mean Corpuscular Hemoglobin 32.5 PG Mean Corpuscular Hemoglobin Concent 33.8 % Red Cell Distribution Width 15.7 % Platelet Count 342 TH/MM3 Mean Platelet Volume 8.9 FL Neutrophils (%) (Auto) 58.9 % Lymphocytes (%) (Auto) 22.1 % Monocytes (%) (Auto) 10.1 % Eosinophils (%) (Auto) 7.9 % Basophils (%) (Auto) 1.0 % Neutrophils # (Auto) 4.9 TH/MM3 Lymphocytes # (Auto) 1.8 TH/MM3 Monocytes # (Auto) 0.8 TH/MM3 Eosinophils # (Auto) 0.7 TH/MM3 Basophils # (Auto) 0.1 TH/MM3 CBC Comment AUTO DIFF Differential Total Cells Counted 100 Neutrophils % (Manual) 42 % Band Neutrophils % 19 % Lymphocytes % 16 % Monocytes % 7 % Eosinophils % 11 % Basophils % 1 % Neutrophils # (Manual) 5.4 TH/MM3 Myelocytes 4 % Differential Comment FINAL DIFF MANUAL Platelet Estimate NORMAL Platelet Morphology Comment NORMAL Blood Urea Nitrogen 52 MG/DL Creatinine 0.62 MG/DL Random Glucose 211 MG/DL Calcium Level 9.6 MG/DL Sodium Level 141 MEQ/L Potassium Level 4.3 MEQ/L Chloride Level 103 MEQ/L Carbon Dioxide Level 29.9 MEQ/L Anion Gap 8 MEQ/L Estimat Glomerular Filtration Rate 94 ML/MIN Imaging Last Impressions Chest X-Ray 10/04/17 0900 Signed Impressions: Service Date/Time: Wednesday, October 04, 2017 08:53 - CONCLUSION: Significant improvement with almost complete resolution of bilateral airspace disease. Benja Ramsey MD Thoracentesis 08/05/17 1535 Signed Impressions: Service Date/Time: Saturday, August 05, 2017 16:08 - CONCLUSION: Uncomplicated CT-guided thoracentesis. Sage Adler MD Chest Ultrasound 08/02/17 0000 Signed Impressions: Service Date/Time: Tuesday, August 01, 2017 22:06 - CONCLUSION: 1. Moderate right pleural effusion, as above. Alejo De La Vega MD Hip and Pelvis X-Ray 07/09/17 0000 Signed Impressions: Service Date/Time: Sunday, July 09, 2017 14:04 - CONCLUSION: Anatomic alignment. Ricardo Middleton MD FACR Liver Ultrasound 06/19/17 0000 Signed Impressions: Service Date/Time: June 13:20 - CONCLUSION: 1. Mildly increased echotexture of the liver characteristic of hepatic steatosis. 2. Gallbladder sludge. Obdulio Sam MD Abdomen X-Ray 06/16/17 0000 Signed Impressions: Service Date/Time: Friday, June 16, 2017 04:48 - CONCLUSION: 1. Continued small bowel ileus. There has been no significant change when compared to the prior exam. Toy Duran MD Head CT 05/15/17 0000 Signed Impressions: Service Date/Time: May 19:59 - CONCLUSION: 1. 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 2. No bleed or new/acute infarct. Obdulio Simms MD Gall Bladder Ultrasound 05/08/17 0000 Signed Impressions: Service Date/Time: May 08:23 - CONCLUSION: Focally unremarkable appearance of the gallbladder Obdulio Chun MD Abdomen/Pelvis CT 05/07/17 0000 Signed Impressions: Service Date/Time: Sunday, May 07, 2017 13:23 - CONCLUSION: 1. Large left pneumothorax. 2. Bilateral lower lobe consolidation and bilateral moderate size pleural effusions. 3. Significant soft tissue thickening of the right lateral chest wall and left gluteus muscle. 4. Mild ascites. The findings were called to Dr. Carney. Deangelo Zamora MD Chest CT 04/30/17 0000 Signed Impressions: Service Date/Time: Sunday, April 30, 2017 09:20 - CONCLUSION: 1. Bilateral pulmonary infiltrates more pronounced within the lower lobes with tiny bilateral pleural effusions. Material seen filling the lower lobe bronchi bilaterally either related to purulent material or perhaps mucus plugging. Deangelo Wren Jr., MD Carotid Artery Ultrasound 04/24/17 0000 Signed Impressions: Service Date/Time: April 09:45 - CONCLUSION: 1. No hemodynamically significant carotid artery stenosis. Arnie Middleton MD Hip X-Ray 04/21/17 0000 Signed Impressions: Service Date/Time: Friday, April 21, 2017 11:36 - CONCLUSION: Fluoroscopic images during placement of intramedullary siomara left femur. Benja Ramsey MD Objective Remarks GENERAL: Elderly female who is laying in [facility] bed on trach collar SKIN: Warm and dry, adequately perfused. HEAD: Atraumatic. Normocephalic. mucous membranes moist. NECK: 8.[address] Trachea midline. No JVD. CARDIOVASCULAR: Regular rate and rhythm, sinus on the monitor. RESPIRATORY: unlabored. no accessory muscle use. trach collar. GASTROINTESTINAL: Abdomen soft, non-tender, nondistended. PEG in place with tube feeds running, site benign appearing. MUSCULOSKELETAL: Extremities without clubbing, cyanosis, or edema. No obvious deformities. NEUROLOGICAL: Eyes open spontaneously, does not appear to track. L gaze preference. R hemiparesis. Localizes with LUE. Very slight withdrawal of LLE to noxious stimuli. A/P Assessment and Plan Neuro/Psych: Left MCA CVA - 5.5 mm of [id number] subfalcine herniation, diagnosed 04/24. Persistent right-sided hemiparesis. Prior History of stroke Continue Aspirin 325 mg by tube daily. Stroke occurred 04/24/17. Patient was not a candidate for thrombolysis per discussion with neurology and radiology at that time. Repeat head CT 05/15 showed slight improvement in the midline shift now 5.5 mm and mass effect Neurosurgery consulted 04/30- Dr. López, recommended conservative management, now signed off. Neurology Dr. Malave has followed previously, signed off. Cardiovascular: Hypertension Norvasc 10 mg po daily, Cardura 1 mg peg daily, metoprolol 12.5 peg bid, hydralazine 10 mg per per peg q8 hours. clonidine prn SBP >160 Echo showed EF 25-30%, Grade I diastolic disfunction Pulmonary: Chronic Tracheostomy Now recurrent Acute hypoxemic respiratory failure Acute hypoxic respiratory failure - aspiration possible HCAP - previous episode resolved. Large left pneumothorax status post #10 Sloven[place] chest tube 05/07 - resolved.Chest tube d/c'd 05/12/17 R pleural effusion - Continue with vent support keep sat >92% Ipratropium/albuterol aerosols every 6 hours with albuterol aerosols every 2 hours Pulm toilet, trach care SBT daily as gato Pulm is following GI/liver: Elevated transaminases, resolved Severe protein calorie malnutrition Small bowel ileus- resolved Hepatitis C antibody positive with negative genotype/viral load Hepatic steatosis Currently on PEG tube feeding with Glucerna 1.5 goal 45 cc an hour. Check KUB abdomen r/o ileus Beneprotein tid. Lansoprazole 30 mg daily for GI regimen Endocrine: Diabetes mellitus SSI high scale-dose every 6 hours , Levemir 7u Q12 /Renal/FEN: Monitor renal function. I/O's, electrolytes replacement as needed Heme: Chronic Rivaroxaban use prior to admission Leukocytosis Normocytic anemia Follow CBC and coags. ID: MDR Pseudomonas aeruginosa and pneumonia (HCAP) MSSA bacteremia - resolved. Serratia/staph aureus pneumonia - resolved. C glabrata UTI - resolved. Citrobacter UTI - resolved. Serratia/MSSA sputum VAP resolved Current relevant cultures: 09/25/17 -sputum culture - Pseudomonas aeruginosa, multidrug resistant ( including Zerbaxa and Avycaz resistance). On Colistin nebs started 09/30 Per ID, Dr. Ranjan Saleh Prior cultures: Urine culture 04/26/17 sofie glabrata Blood culture 04/29/17 1 out of 4 bottles staph aureus Sputum culture 04/30/17 MSSA and Serratia. urine 05/07-> Serratia, treated. Urine 05/25: Citrobacter MSK: Left Intertroch Hip Fx s/p IMN 04/21/17. Vitamin D deficiency Sacral decubitus ulcer, Previously stage III, healing. Continue calcium vitamin D 250/125 one tablet 3x a day and cholecalciferol 5000 units daily. PT/OT evaluate and treat Maxsorb every 3 days/dressing changes every 3 days per wound care Continue bene protein one packet 3x a day Prophylaxis: SCDs. Heparin 5000 subcut q8 hours. GI - lansoprazole 30 mg by PEG tube daily ACCESS: PIV. Level 2 Kristel Durant MD Oct 10, 2017 11:37
--- NOTE | 2017-10-10 12:26 | RADRPT ---
EXAM DATE/TIME: 10/10/2017 11:35 [place] COMPARISON: ABDOMEN KUB ONLY, June 16, 2017, 4:48. INDICATIONS : F/u ileus MEDICAL HISTORY : Stroke. Diabetes SURGICAL HISTORY : Hysterectomy. tracheostomy ENCOUNTER: Initial ACUITY: 2 weeks PAIN SCORE: 10/10 LOCATION: Bilateral abdomen FINDINGS: Supine view of the abdomen was performed. The abdominal bowel gas pattern is normal. No abnormal ma sses, calcifications, or organomegaly is seen. PEG tube noted. Degenerative changes lumbar spine. Jayjay cified leiomyomas in the pelvis. Pin in the left proximal femur. The osseous structures are unremarka ble. CONCLUSION: No dilated bowel loops. Benja Ramsey MD on October 10, 2017 at 12:24 Board Certified Radiologist. This report was verified electronically.
[2017-10-10] MEDS: INSULIN DETEMIR 100 UNITS/ML VIAL SQ SCH ×2 (13:01→23:15)
[2017-10-10] MEDS: CHOLECALCIFEROL (VIT D3) 5000 UNIT CAP PEG SCH (13:03)
--- NOTE | 2017-10-10 22:02 | HHI.PR ---
Subjective Remarks 76 YO Frail female with RF,Trach,CVA no fever On PRVC AC16 Did't tolerate CPAP Objective Vital Signs Vital Signs Date Time Temp Pulse Resp B/P (MAP) Pulse Ox O2 Delivery O2 Flow Rate FiO2 10/10/17 17:59 98 30 10/10/17 16:00 98.6 63 19 126/78 (94) 99 10/10/17 16:00 30 10/10/17 13:00 97.7 71 18 126/56 (79) 99 10/10/17 12:00 30 10/10/17 09:12 99 30 10/10/17 08:00 98.7 70 18 156/83 (107) 99 10/10/17 08:00 70 10/10/17 08:00 30 10/10/17 05:09 99 30 10/10/17 04:00 98.0 73 18 155/85 (108) 99 10/10/17 04:00 30 10/10/17 01:24 99 30 10/10/17 00:00 30 10/10/17 00:00 97.9 69 16 140/75 (96) 97 I/O 10/09/17 10/09/17 10/09/17 10/10/17 10/10/17 10/10/17 07:00 15:00 23:00 07:00 15:00 23:00 Intake Total 675 ml 677 ml 688 ml 478 ml Output Total 900 ml 300 ml 800 ml 500 ml Balance -225 ml 377 ml -112 ml -22 ml Intake Oral 0 ml 0 ml 0 ml 0 ml Autotransfusion 475 ml 477 ml 488 ml 478 ml Other 200 ml 200 ml 200 ml Output Urine Total 800 ml 300 ml 700 ml 200 ml Stool Total 100 ml 0 ml 100 ml 300 ml # Voids 3 Result Diagram: 10/10/17 0510 10/10/17 0510 Objective Remarks GENERAL: Elderly female,NAD SKIN: Warm and dry. HEAD: Normocephalic. EYES: No scleral icterus. No injection or drainage. NECK: Supple, trachea midline. No JVD or lymphadenopathy. CARDIOVASCULAR: Regular rate and rhythm without murmurs, gallops, or rubs. RESPIRATORY: Breath sounds equal bilaterally. No accessory muscle use. GASTROINTESTINAL: Abdomen soft, non-tender, nondistended. MUSCULOSKELETAL: No cyanosis, or edema. BACK: Nontender without obvious deformity. No CVA tenderness. A/P Assessment and Plan RF,S/P Trach CVA Pneumonia Pleural effusion Pseudomonas Tracheobronchitis, Hyperkalemia Hypoxia PLAN: Vent support Aerosol nebs Supplement 02 TF Abx per ID [facility] RN at [facility],Chris Hester MD Oct 10, 2017 22:02
[2017-10-11] VITALS (14 sets, daily range): BP systolic 106–150; BP diastolic 51–88; PULSE 59–70; RESP 16–22; TEMP 97.4–99.6; O2SAT 94–100
--- NOTE | 2017-10-11 02:24 | RADRPT ---
EXAM DATE/TIME: 10/11/2017 01:43 [place] COMPARISON: CHEST SINGLE AP, October 04, 2017, 8:53. INDICATIONS : Shortness of breath, possible pulmonary disease. MEDICAL HISTORY : Stroke. Diabetes mellitus type II. SURGICAL HISTORY : Hysterectomy. Tracheostomy ENCOUNTER: Subsequent ACUITY: 2 weeks PAIN SCORE: Non-responsive. LOCATION: Bilateral chest FINDINGS: A single view of the chest demonstrates tracheostomy in good position. Minimal basilar atelectasis or scarring. No effusion or pneumothorax. The heart size within normal limits. CONCLUSION: 1. Tracheostomy in good position. Minimal basilar atelectasis or scarring. No effusion. Jaime Velasquez MD on October 11, 2017 at 2:22 Board Certified Radiologist. This report was verified electronically.
[2017-10-11] MEDS: INSULIN NovoLIN REGULAR SUPPLEMENTAL SCALE SQ SCH ×3 (06:00→17:22)
[2017-10-11] MEDS: ARTIFICIAL TEARS OPTH SOLN 15 ML BTL EACH EYE SCH ×3 (06:00→20:44)
[2017-10-11] MEDS: HEPARIN SODIUM - SQ 10,000 UNITS/ML VIAL SQ SCH ×3 (06:05→20:43)
[2017-10-11] MEDS: hydrALAZINE HCL 10 MG TAB PEG SCH ×3 (06:05→20:42)
[2017-10-11] MEDS: CHLORHEXIDINE 0.12% (ORAL KIT) 15 ML CUP MT SCH ×2 (08:00→20:44)
[2017-10-11] MEDS: RESP: COLISTIN 150 MG VIAL NEB SCH ×3 (08:20→21:56)
[2017-10-11 08:31] LABS: AUTOMATED NEUTROPHIL # 4.9 TH/MM3 (1.8-7.7); BASOPHIL # 0.1 TH/MM3 (0-0.2); BASOPHIL % 1.3 % (0.0-2.0); EOSINOPHIL # 0.5 TH/MM3 (0-0.4); EOSINOPHIL % 6.3 % (0.0-4.0); HEMATOCRIT 28.4 % (35.0-46.0); HEMOGLOBIN 9.7 GM/DL (11.6-15.3); LYMPH % 23.8 % (9.0-44.0); MEAN CELL VOLUME 96.8 FL (80.0-100.0); MEAN CORPUSCULAR HEMOGLOBIN 32.8 PG (27.0-34.0); MEAN CORPUSCULAR HGB CONC 33.9 % (32.0-36.0); MEAN PLATELET VOLUME 8.9 FL (7.0-11.0); MONOCYTE # 0.9 TH/MM3 (0-0.9); NEUT % 57.6 % (16.0-70.0); PLATELET COUNT 340 TH/MM3 (150-450); RED BLOOD COUNT 2.94 MIL/MM3 (4.00-5.30); RED CELL DISTRIBUTION WIDTH 15.8 % (11.6-17.2); WHITE BLOOD COUNT 8.4 TH/MM3 (4.0-11.0)
[2017-10-11] MEDS: SODIUM CHLORIDE 0.9% FLUSH 5 ML FLUSH IV FLUSH SCH ×2 (08:35→20:43)
[2017-10-11] MEDS: CHOLECALCIFEROL (VIT D3) 5000 UNIT CAP PEG SCH (08:35)
[2017-10-11] MEDS: CALCIUM/VITAMIN D 250 MG/125 U TAB PEG SCH ×3 (08:35→17:22)
[2017-10-11] MEDS: ASPIRIN 325 MG TAB DOBHOFF SCH (08:35)
[2017-10-11] MEDS: LANSOPRAZOLE SOLUTAB 30 MG TAB NG SCH (08:36)
[2017-10-11] MEDS: METOPROLOL TARTRATE 25 MG TAB PEG SCH ×3 (08:36→20:42)
[2017-10-11] MEDS: DOXAZOSIN MESYLATE 1 MG TAB PEG SCH (08:36)
[2017-10-11 08:59] LABS: BICARBONATE 29.1 MEQ/L (21.0-32.0); CALCIUM 9.3 MG/DL (8.5-10.1); CREATININE 0.61 MG/DL (0.50-1.00)
[2017-10-11] MEDS: LACTOBACILLUS ACIDOPHILUS TAB PEG SCH ×2 (09:00→20:42)
[2017-10-11 09:56] LABS: BANDS 5 % (0-6); BASOPHILS 1 % (0-2); LYMPHOCYTES 21 % (9-44); METAMYELOCYTES 3 % (0-1); MONOCYTES 8 % (0-8); MYELOCYTES 3 % (0-0); NEUTROPHIL # MANUAL DIFF 5.3 TH/MM3 (1.8-7.7); POLYS (SEG NEUTROPHILS) 51 % (16-70); PROMYELOCYTES 1 % (0-0)
--- NOTE | 2017-10-11 12:59 | HHI.IDPN ---
Subjective Subjective Remarks is a 76 y/o CF with PMHx of stroke, diabetes mellitus who was admitted with DKA and a hip fracture for which she underwent ORIF on 04/21. While in hospital recovering, patient developed altered mental status. Due to worsening mental status a stroke alert was called. Head CT showed large left MCA territory ischemic infarct with edema. Patient was transferred to the ICU by family medicine service and critical care consult was requested. At the time of evaluation in [facility], patient was opening her eyes however not following commands and had a dense right hemiplegia. Patient was also evaluated by Dr. Malave from neurology. At baseline, the patient lives with her daughter since her stroke in 2014 and does ambulate however has been having problems with memory and incontinence as well as gait difficulties. She does not feel patient would want intubation or tracheostomy or PEG tube. On 05/01/17 patient was intubated for severe hypoxemic respiratory failure from aspiration pneumonia. She also had a temp of 101 F. Blood culture and sputum culture with staph aureus sputum also growing GNR, WBC count 22,000 now indicating worsening sepsis. 05/06/[address] head with massive left MCA infarction and > 1 cm shift in right handed woman. Meanwhile patient is also being treated for C.glabrata UTI. At the time of my evaluation, patient is in [facility] on ventilator. She spontaneously opens eyes, did not follow commands for me. She underwent a CT A/ P which shows a left side pneumothorax. is placing a pigtail chest tube. She has a moser in place but no central line. ID is reconsulted for evaluation and Mment of Right side pneumonia with possible collapse lung, very MDR PSAE. Notes reviewed D/W RN Remains on vent. Overall clinically stable normal wbc, no fevers not much secretions. S/P bronch 10/03/17. Post Bronch CXR remarkably improved. Temps ok No rash No diarrhea Antibiotics Current Medications Medications (Trade) Dose Ordered Sig/Zeferino Route Start Time Stop Time Status Last Admin (Narcan Inj) 0.4 mg UNSCH PRN IV 04/20/17 17:15 (NS Flush) 2 ml BID IV FLUSH 04/24/17 21:00 10/11/17 08:35 (NS Flush) 2 ml UNSCH PRN IV FLUSH 04/24/17 09:30 09/17/17 08:48 (Aspirin) 325 mg DAILY DOBHOFF 04/27/17 09:00 10/11/17 08:35 (Prevacid Odt) 30 mg DAILY NG 05/08/17 09:00 10/11/17 08:36 (Tears Naturale Opth Soln) 1 drop Q8HR EACH EYE 06/12/17 07:15 10/11/17 06:00 (Nitroglycerin 2% Oint) 2 inch Q6H PRN TOPICAL 06/21/17 08:00 06/30/17 14:37 (Heparin Inj) 5,000 units Q8HR SQ 07/15/17 08:00 10/11/17 06:05 (Duoneb Neb) 1 ampule Q6HR NEB PRN NEB 08/10/17 14:00 10/09/17 08:20 (Pill Splitter) 1 ea UNSCH PRN OTHER 09/05/17 11:00 (Tylenol) 500 mg Q6H PRN PEG 09/16/17 16:15 09/16/17 16:36 (Apresoline) 10 mg Q8HR PEG 09/24/17 14:00 10/11/17 06:05 (Coly-Mycin M Neb) 75 mg Q8HR NEB NEB 09/30/17 16:00 10/11/17 08:20 (Norvasc) 10 mg DAILY PEG 10/04/17 09:00 10/10/17 08:05 (Oscal-D 250-125) 250 mg TID PEG 10/03/17 13:00 10/11/17 08:35 (Vitamin D3) 5,000 units DAILY PEG 10/04/17 09:00 10/11/17 08:35 (Catapres) 0.1 mg Q6H PRN PEG 10/03/17 12:30 10/08/17 09:03 (Cardura) 1 mg DAILY PEG 10/04/17 09:00 10/11/17 08:36 (Lactinex) 1 tab Q12HR PEG 10/03/17 21:00 10/10/17 22:34 (Lopressor) 12.5 mg Q12HR PEG 10/03/17 21:00 10/10/17 22:35 (Miralax) 17 gm DAILY PRN PEG 10/03/17 12:00 (Beneprotein Powder) 1 pack TID PRN G-TUBE 10/03/17 12:00 (Albuterol Neb) 2.5 mg Q2HR NEB PRN NEB 10/03/17 21:45 10/08/17 22:26 (fentaNYL INJ) 50 mcg Q1H PRN IV PUSH 10/03/17 23:00 (Peridex 0.12% Liq) 15 ml BID@08,20 MT 10/04/17 08:00 10/11/17 08:00 (Levemir Inj) 7 units Q12H SQ 10/08/17 12:00 10/10/17 23:15 (D50w (Vial) Inj) 50 ml UNSCH PRN IV PUSH 10/08/17 09:45 (Glucagon Inj) 1 mg UNSCH PRN OTHER 10/08/17 09:45 (NovoLIN R SUPPLEMENTAL SCALE) 1 Q6HR SQ 10/08/17 12:00 10/10/17 17:54 Lines Line sites with no e.o infection. Past Medical History reviewed Allergies: Coded Allergies: No Known Allergies (Unverified , 04/20/17) Objective . Vital Signs Date Time Temp Pulse Resp B/P (MAP) Pulse Ox O2 Delivery O2 Flow Rate FiO2 10/11/17 10:31 99 30 10/11/17 08:20 98 30 10/11/17 08:00 30 10/11/17 08:00 61 10/11/17 04:10 100 30 10/11/17 04:00 30 10/11/17 04:00 97.4 59 16 131/56 (81) 98 10/11/17 01:00 99 30 10/11/17 00:00 99.6 67 16 120/68 (85) 98 10/11/17 00:00 30 10/10/17 23:52 67 10/10/17 21:55 96 30 10/10/17 20:00 99.1 63 16 127/64 (85) 99 10/10/17 20:00 30 10/10/17 17:59 98 30 10/10/17 16:00 98.6 63 19 126/78 (94) 99 10/10/17 16:00 30 10/10/17 13:00 97.7 71 18 126/56 (79) 99 . Laboratory Tests Test 10/10/17 05:10 10/11/17 07:37 White Blood Count 8.3 TH/MM3 8.4 TH/MM3 Red Blood Count 3.07 MIL/MM3 2.94 MIL/MM3 Hemoglobin 10.0 GM/DL 9.7 GM/DL Hematocrit 29.4 % 28.4 % Mean Corpuscular Volume 96.0 FL 96.8 FL Mean Corpuscular Hemoglobin 32.5 PG 32.8 PG Mean Corpuscular Hemoglobin Concent 33.8 % 33.9 % Red Cell Distribution Width 15.7 % 15.8 % Platelet Count 342 TH/MM3 340 TH/MM3 Mean Platelet Volume 8.9 FL 8.9 FL Neutrophils (%) (Auto) 58.9 % 57.6 % Lymphocytes (%) (Auto) 22.1 % 23.8 % Monocytes (%) (Auto) 10.1 % 11.0 % Eosinophils (%) (Auto) 7.9 % 6.3 % Basophils (%) (Auto) 1.0 % 1.3 % Neutrophils # (Auto) 4.9 TH/MM3 4.9 TH/MM3 Lymphocytes # (Auto) 1.8 TH/MM3 2.0 TH/MM3 Monocytes # (Auto) 0.8 TH/MM3 0.9 TH/MM3 Eosinophils # (Auto) 0.7 TH/MM3 0.5 TH/MM3 Basophils # (Auto) 0.1 TH/MM3 0.1 TH/MM3 CBC Comment AUTO DIFF AUTO DIFF Differential Total Cells Counted 100 100 Neutrophils % (Manual) 42 % 51 % Band Neutrophils % 19 % 5 % Lymphocytes % 16 % 21 % Monocytes % 7 % 8 % Eosinophils % 11 % 7 % Basophils % 1 % 1 % Neutrophils # (Manual) 5.4 TH/MM3 5.3 TH/MM3 Myelocytes 4 % 3 % Differential Comment FINAL DIFF MANUAL FINAL DIFF MANUAL Platelet Estimate NORMAL NORMAL Platelet Morphology Comment NORMAL NORMAL Metamyelocytes 3 % Promyelocytes 1 % Red Cell Morphology Comment NORMAL Laboratory Tests Test 10/10/17 05:10 10/11/17 07:37 Blood Urea Nitrogen 52 MG/DL 63 MG/DL Creatinine 0.62 MG/DL 0.61 MG/DL Random Glucose 211 MG/DL 169 MG/DL Calcium Level 9.6 MG/DL 9.3 MG/DL Sodium Level 141 MEQ/L 143 MEQ/L Potassium Level 4.3 MEQ/L 4.4 MEQ/L Chloride Level 103 MEQ/L 107 MEQ/L Carbon Dioxide Level 29.9 MEQ/L 29.1 MEQ/L Anion Gap 8 MEQ/L 7 MEQ/L Estimat Glomerular Filtration Rate 94 ML/MIN 96 ML/MIN Imaging Last Impressions Chest X-Ray 05/11/17 0000 Signed Impressions: Service Date/Time: Thursday, May 11, 2017 09:37 - CONCLUSION: 1. Small right pleural effusion. 2. Bilateral mid and lower lung zone predominant air space opacity could represent pulmonary edema given the appearance and distribution. Obdulio Sam MD Abdomen X-Ray 05/10/17 0000 Signed Impressions: Service Date/Time: Wednesday, May 10, 2017 22:08 - CONCLUSION: Tip of Dobbhoff catheter is in the antrum of the stomach. Sage Adler MD Gall Bladder Ultrasound 05/08/17 0000 Signed Impressions: Service Date/Time: May 08:23 - CONCLUSION: Focally unremarkable appearance of the gallbladder Obdulio Chun MD Abdomen/Pelvis CT 05/07/17 0000 Signed Impressions: Service Date/Time: Sunday, May 07, 2017 13:23 - CONCLUSION: 1. Large left pneumothorax. 2. Bilateral lower lobe consolidation and bilateral moderate size pleural effusions. 3. Significant soft tissue thickening of the right lateral chest wall and left gluteus muscle. 4. Mild ascites. The findings were called to Dr. Carney. Deangelo Zamroa MD Head CT 05/06/17 0000 Signed Impressions: Service Date/Time: Saturday, May 06, 2017 04:18 - CONCLUSION: 1. Evolving large left-sided MCA territory infarct with minimally improved [id number] subfalcine shift. 2. No intercurrent hemorrhage or other acute abnormality. Alejo De La Vega MD Hip and Pelvis X-Ray 05/05/17 0000 Signed Impressions: Service Date/Time: Friday, May 05, 2017 10:59 - CONCLUSION: Left proximal femur trochanteric/subtrochanteric fracture lucency visualized. Postoperative changes. Choco Mustafa MD Chest CT 04/30/17 0000 Signed Impressions: Service Date/Time: Sunday, April 30, 2017 09:20 - CONCLUSION: 1. Bilateral pulmonary infiltrates more pronounced within the lower lobes with tiny bilateral pleural effusions. Material seen filling the lower lobe bronchi bilaterally either related to purulent material or perhaps mucus plugging. Deangelo Wren Jr., MD Carotid Artery Ultrasound 04/24/17 0000 Signed Impressions: Service Date/Time: April 09:45 - CONCLUSION: 1. No hemodynamically significant carotid artery stenosis. Arnie Middleton MD Hip X-Ray 04/21/17 0000 Signed Impressions: Service Date/Time: Friday, April 21, 2017 11:36 - CONCLUSION: Fluoroscopic images during placement of intramedullary siomara left femur. Benja Ramsey MD Physical Exam GENERAL: Thin built poorly nourished, NAD, on the vent SKIN: No generalized rash. Cool and dry. EYES: Pupils equal round and reactive. No scleral icterus. No injection or drainage. ENT: No nasal drainage, moist oral mucosa NECK: Trach site ok. CARDIOVASCULAR: Regular rate and rhythm without murmurs, gallops, or rubs. RESPIRATORY: Clear to auscultation. Breath sounds decreased R>L GASTROINTESTINAL: Abdomen soft, mildly distended. No tenderness. MUSCULOSKELETAL: Pedal edema. Generalized anasarca. NEUROLOGICAL:. Opens eyes, not tracking, Does not follow commands. Psych: could not be assessed. IV line sites with no e.o infection. Assessment & Plan Remarks Very MDR PSAE pneumonia (resistant to Avycaz and Zerbaxa and all other Cephalosporins and PCNs etc groups) E.coli and serratia in urine. Likely colonization. Likely mucus plugging. - S/P bronch - CXR better after bronch Left MCA infarction s/p neurological deficits. Recs: Continue Colistin nebs. Follow C/S. Monitor progress Will not start any new IV Abx since she looks better post bronch. Follow temlakshmi D/W Jane Bai MD Oct 11, 2017 12:59
[2017-10-11] MEDS: INSULIN DETEMIR 100 UNITS/ML VIAL SQ SCH (13:14)
--- NOTE | 2017-10-11 17:51 | HHI.CCPN ---
Subjective Remarks/Hospital Course 04/24: 76-year-old female with a medical history significant for prior stroke, diabetes mellitus who was admitted with DKA and a hip fracture for which she underwent ORIF on 04/21. Patient developed altered mental status and was last noted to be okay around 5:30 AM. Subsequently there was a change in her mental status and she was noted to not be moving her right side for which stroke alert was called. Head CT showed large left MCA territory ischemic infarct with edema. Patient was transferred to the ICU by family medicine service in the critical care consult was requested. I evaluated the patient following arrival to the ICU. At that time she was laying in bed with her eyes open however not following commands and had a dense right hemiplegia. Patient was also evaluated by Dr. Malave from neurology. [facility] further discussed current event with patient's daughter following her arrival to the ICU. Per the daughter patient has been living with her since her stroke in 2014 and does ambulate however has been having problems with memory and incontinence as well as gait difficulties. She does not feel patient would want intubation or tracheostomy or PEG tube. 04/25: Patient remains encephalopathic, awake though not following commands consistently. Dense right hemiplegia persists. Appears to be awake enough to protect airway currently. Patient's daughter rescinded DNR and made a full code last evening. 04/26: Remains encephalopathic, not following commands. On Dobbhoff for tube feeds at 30 cc per hour. Had urinary retention and drained 2 L of urine after placing Moser catheter today. CT head done this morning with large left MCA territory infarct with left to right midline shift and significant cerebral edema. Hyperglycemia noted. Patient given mannitol earlier for increasing cerebral edema. 04/27: Remains encephalopathic, not following commands. On Dobbhoff tube feeds at 30 cc per hour. When into A. fib with RVR last night which responded with Lopressor 5 mg IV 1 dose. 04/28: Remains encephalopathic, arousable, not following commands. Moves left upper extremity spontaneously. Tolerating Dobbhoff tube feeds. Remains on nasal cannula. 04/29: Encephalopathic, eyes be arousable, moves left upper extremity spontaneously and occasionally opens eyes. Dense right hemiplegia and aphasia persists. On nasal cannula. Dobbhoff tube feeds being advanced. Patient was transfused 1 unit PRBCs yesterday. Urine culture with yeast from yesterday for which fluconazole being started. Had brief run of A. fib with RVR which improved with Lopressor IV, currently in sinus rhythm. 04/30: Worsening hypoxemic respiratory failure, currently on partial nonrebreather. Remains lethargic. WBC count increased from 14.6 today 20.7. Chest x-ray shows bilateral worsening infiltrates and small pleural effusions. Sodium 154, weight up by 8 KG. Albumin 1 mg Bumex 1. Also one dose of albumin. Remains in sinus tachycardia. Tmax 101.3 05/01: Patient was intubated yesterday for lack of airway protection, and severe hypoxemic respiratory failure from aspiration pneumonia involving multiple lobes. Patient is on the vent lethargic, no spontaneous eye opening. Chest x- ray remains unchanged. Remains intermittently febrile Tmax 101.3. WBC count improving 05/02: Remains critically ill with no improvement in mental status. Spiking fever of 101.7. Blood culture and sputum culture with staph aureus sputum also growing GNR, WBC count 22,000 now indicating worsening sepsis. Daughter still requesting aggressive care. Palliative care is following 05/03: S/P large area dominant hemisphere CVA. No neurological improvement. Now with pneumonia (infiltrate, fever, leukocytosis) and appropriate abx coverage. She will have a hard time surviving the hip fx, CVA, and pneumonia. Palliative Care needs to be a mainstay of our plan. 05/04: No improvement in neuro status. Sputum C&S allows us to narrow abx coverage to levaquin alone. Lungs remain quite congested. Enteral nutrition tolerated. 05/05: No improvement in neuro status. Moves left arm spontaneously. Flaccid right side. Unresponsive. Persistent mild hypoglycemia - will cut Levemir 50%. Abdomen more distended, check KUB. 05/06: CT head with massive left MCA infarction and > 1 cm shift in right handed woman. She opens eyes, does not track. 05/07: Patient open eyes. Attempts to respond. Cameroonian speaking. Tolerating tube feeds. Positive bowel movement. Volume overloaded. 05/08: Tmax 99.4. Potassium being replaced. Ultrasound gallbladder currently pending. Transaminases are trending downward. Gently diurese. 05/09: Alk phos decreasing. Remains with good urine output. Neurological status not improving. 05/10: Fixed neuro deficit unchanged. Profound CVA. 05/11: Appears to track with eyes today. No improvement in motor function. Remains very edematous, diuretics doubled. 05/12: Continued thick secretions. Afebrile, leukocytosis resolved. 05/13: CT head with completed left MCA stroke, persistent edema and 5 mm shift away. Does not last long on SBTs - major decision now is trach/PEG. 05/14: Daughter has decided to proceed with trach and PEG. I have been pessimistic with her about chances for a meaningful recovery. 05/15: Plan for trach today. No change in neuro status. Still ventilator dependent. 05/16: Trach completed. Await PEG and disposition. 05/17: PEG placed 05/16. Start TFs today after nutrition consult. Work to place patient. 05/18: No improvement. Does open eyes, no focus or tracking. Completed large dominant (left) hemisphere CVA in right handed woman with severe deficit. Medicaid pending status, [facility] is following. 05/19: no improvements in neuro exam. ready for LTAC. will d/c moser and rectal tubes. 05/20: no changes or improvements. very difficult placement due to patient not [place] citizen. 05/21: no improvements. resting on vent overnight due to distress. 05/22: no neurologic changes. no improvements. attempted T-piece which failed after 10 minutes. 05/23: no improvements. poor prognosis. poor neuro exam. still failing weaning trials. 05/24: no improvements or changes. still failing t-piece trials. 05/25: No acute changes of improvement overnight. Failed CPAP due to apnea, tried again currently tolerating. Neurological exam unchanged. 05/26: No improvement in neurological function. 05/27: Patient has required Moser catheter because of breakdown of skin on upper thighs and groin. Urine has become infected, will treat. 05/28: Some drainage from around trach (placed 2 weeks ago). Will change out trach tube and inspect neck wound. I&O straight cath q6h order entered 05/17. 05/29: No improvement, remains obtunded. Failed CPAP trials yesterday and again today due to apnea. Moser placed due to persistent urinary retention 05/30: Obtunded, unresponsive. Failed SBTs, remains ventilator dependent. 05/31: Patient continues to fail SBT failed yesterday due to apnea. Neuro exam remains unchanged. 06/01: No acute changes overnight, 06/02: no changes. ekg done overnight for ? EKG changes seen on telemetry which were not visualized on EKG. 06/03: no improvements or changes. had long conversation with daughter yesterday. only facility which would accept patient is in [place] and daughter is refusing to allow patient to go there because it is "too far away." Daughter continues to push for aggressive care despite no improvements, and resistant to Hospice. Patient does not need acute inpatient therapy but lacks funding for appropriate disposition. 06/04: No acute events overnight, failed SBT due to apnea. 06/05: No acute events, continues to fail spontaneous breathing trials. Unable to wean 06/06 Currently tolerating CPAP. Will attempt TP today up to 4 hours. No acute events overnight 06/07: Tolerating trach collar/T-piece. Transfer soon. 06/08: Awaiting transfer. 06/09: Remains ventilator dependent. No improvement in neurological function. 06/10: No improvement. Daughter is not attending preplanned meetings to discuss disposition 06/12: Afebrile. Neurologically stable and unchanged. Noted sodium 135. Adding sodium chloride tablets 1 today. Not on free water.. Tolerating tube feeds at goal 45 cc an hour. 06/13: No improvement in neurological function. 06/14: No improvement. Fluid balance correct. Gas exchange acceptable. 06/15: No improvement. Obtunded and unresponsive. 06/16: no improvements in mental status. KUB overnight with dilated small bowel loops. given methylnaltrexone and erythromycin. today abdomen is soft and tolerating tube feeds. 06/17: tolerated t-piece x 6 hours yesterday. rested on cpap overnight. no changes in encephalopathy. 06/18: Currently on ventilator overnight. Multiple bowel movements. Thick yellow secretions noted in ventilator circuit. Opens eyes. 06/19: Afebrile. Tolerating stretcher chair yesterday on PSV. Tolerating tube feeding. Neurologically unchanged. 06/20: Afebrile. Resting in bed in no acute distress in sitting position. Currently on ventilator set sitting. Tolerated stretcher chair/PSV trial 6 hours yesterday. Neurologically unchanged. 06/21: Tmax 100.8. Patient with copious thick yellow secretions. Tolerating tube feeds. Positive bowel movement. Lasted only 1 hour PSV yesterday 06/22: Tmax 99.9. Continues to have thick secretions. Tolerating tube feeding. Positive BM. 06/23: Afebrile. Continues to have thick tracheal secretions from tracheostomy site. Tolerating tube feeding. 3 bowels movements. Opens eyes to stimulation. Stares at you but does not follow commands. 06/24: Remains encephalopathic, on mechanical ventilation via tracheostomy. Tolerating PEG feeds 06/25: Remains encephalopathic on mechanical ventilation. Tolerated C Pap +5 with pressure support +10 all day yesterday. Tolerating PEG feeds. 06/26: No improvement.Vent dependent still. 06/27: Remains encephalopathic, on mech vent via trach. Daily CPAP trials. 06/28: Unable to wean from ventilator. 06/29: Neurologically unchanged. Remains on mechanical ventilation. Daily C Pap trials ongoing. 06/30: Remains encephalopathic. On C Pap overnight. Tolerating tube feeds. 07/01: No change in neurologic status. On mechanical ventilation via tracheostomy. Tolerating tube feeds. 07/02: Remains encephalopathic. No change in neurologic status. On mechanical ventilation via tracheostomy. Daily C Pap trials ongoing. 07/03: Occasional spontaneous eye opening however remains encephalopathic. On mechanical ventilation via tracheostomy. 07/04: Tmax 99.2. Multiple bowel movements overnight. Tolerating tube feeds. On T piece trial at 5 L since noon yesterday. Otherwise neurologically unchanged. Daughter encouraged by movement of left leg. 07/05: Currently resting in bed on T piece 36 hours. Tolerates chair. No changes neurologically. Positive BM's. Tolerating her tube feeding. 07/06: Continue T-piece trials, if tolerated consider transfer to floor. 07/07: Extended T-piece trial. Plan transfer to floor. 07/09: Patient is experiencing apnea episodes and had to be placed back on higher FiO2.. Hold transfer. 07/10: X-ray left hip shows good anatomic alignment. Still requiring elevated FiO2. 07/11: Prealbumin 20, nutritional support is adequate and status is stable. No neurological improvement. 07/12: No improvement in neurological function. Continued acceptable respiratory effort. 07/13: No change. Subjective 10/03/17 Dr. Rizo notified shoe parts caser that patient would be transferring to ICU. Patient is known to [facility] service. She was originally admitted 04/20/17 after a fall with hip fracture resulting in ORIF 04/21. Postoperatively, she developed large R MCA stroke with midline shift. Her neurologic condition remained poor and she underwent trach 05/15/17 and PEG 05/16/17. She was eventually transitioned to Tpiece and transferred to floor. She has suffered from multiple infectious complications due to her persistent bedfast and trach dependent state. 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 She has been on trach collar with worsening hypoxemia therefore she is transferred to [facility]. CXR from yesterday demonstrates bilateral pulmonary infiltrates. She has also had hyperkalemia today up to 6.7 which has been treated with kayexalate, down to 6. 2: improvement in air space disease with diuresis and bronch yesterday. no overall improvements in chronic poor prognosis. unlikely to survive this hospital stay. daughter has poor insight into the gravity of her mother's medical condition. she will not recover meaningfully. 10/05: continuing to clinically improve from a respiratory standpoint. no improvements in overall poor function. off vent on t-piece today. can likely transition out of ICU tomorrow. 10/06 No events overnight. Remains on ventilator via trach. Afebrile. 10/07 No events overnight. Afebrile. 10/08 Patient is on ventilator via trach. afebrile. 10/09 No events overnight. Tolerating tube feeds. Afebrile. 10/10 Patient is on ventilators via trach. 10/11: Nursing reported patient intermittently follow commands today. BUN slightly elevated. Patient tolerating tube feeding Objective Vital Signs Date Time Temp Pulse Resp B/P (MAP) Pulse Ox O2 Delivery O2 Flow Rate FiO2 10/11/17 16:49 94 30 10/11/17 16:00 98.0 70 16 150/88 (108) Intake and Output 10/11/17 10/11/17 10/12/17 08:00 16:00 00:00 Intake Total 1154 ml Output Total 450 ml Balance 704 ml Result Diagram: 10/11/17 0737 10/11/17 0737 Imaging Last Impressions Chest X-Ray 10/04/17 0900 Signed Impressions: Service Date/Time: Wednesday, October 04, 2017 08:53 - CONCLUSION: Significant improvement with almost complete resolution of bilateral airspace disease. Benja Ramsey MD Thoracentesis 08/05/17 1535 Signed Impressions: Service Date/Time: Saturday, August 05, 2017 16:08 - CONCLUSION: Uncomplicated CT-guided thoracentesis. Sage Adler MD Chest Ultrasound 08/02/17 0000 Signed Impressions: Service Date/Time: Tuesday, August 01, 2017 22:06 - CONCLUSION: 1. Moderate right pleural effusion, as above. Alejo De La Vega MD Hip and Pelvis X-Ray 07/09/17 0000 Signed Impressions: Service Date/Time: Sunday, July 09, 2017 14:04 - CONCLUSION: Anatomic alignment. Ricardo Middleton MD FACR Liver Ultrasound 06/19/17 0000 Signed Impressions: Service Date/Time: June 13:20 - CONCLUSION: 1. Mildly increased echotexture of the liver characteristic of hepatic steatosis. 2. Gallbladder sludge. Obdulio Sam MD Abdomen X-Ray 06/16/17 0000 Signed Impressions: Service Date/Time: Friday, June 16, 2017 04:48 - CONCLUSION: 1. Continued small bowel ileus. There has been no significant change when compared to the prior exam. Toy Duran MD Head CT 05/15/17 0000 Signed Impressions: Service Date/Time: May 19:59 - CONCLUSION: 1. 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 2. No bleed or new/acute infarct. Obdulio Simms MD Gall Bladder Ultrasound 05/08/17 0000 Signed Impressions: Service Date/Time: May 08:23 - CONCLUSION: Focally unremarkable appearance of the gallbladder Obdulio Chun MD Abdomen/Pelvis CT 05/07/17 0000 Signed Impressions: Service Date/Time: Sunday, May 07, 2017 13:23 - CONCLUSION: 1. Large left pneumothorax. 2. Bilateral lower lobe consolidation and bilateral moderate size pleural effusions. 3. Significant soft tissue thickening of the right lateral chest wall and left gluteus muscle. 4. Mild ascites. The findings were called to Dr. Carney. Deangelo Zamora MD Chest CT 04/30/17 0000 Signed Impressions: Service Date/Time: Sunday, April 30, 2017 09:20 - CONCLUSION: 1. Bilateral pulmonary infiltrates more pronounced within the lower lobes with tiny bilateral pleural effusions. Material seen filling the lower lobe bronchi bilaterally either related to purulent material or perhaps mucus plugging. Deangelo Wren Jr., MD Carotid Artery Ultrasound 04/24/17 0000 Signed Impressions: Service Date/Time: April 09:45 - CONCLUSION: 1. No hemodynamically significant carotid artery stenosis. Arnie Middleton MD Hip X-Ray 04/21/17 0000 Signed Impressions: Service Date/Time: Friday, April 21, 2017 11:36 - CONCLUSION: Fluoroscopic images during placement of intramedullary siomara left femur. Benja Ramsey MD Objective Remarks GENERAL: Elderly female who is laying in [facility] bed on trach collar, no apparent distress SKIN: Warm and dry, adequately perfused. HEAD: Atraumatic. Normocephalic. mucous membranes moist. NECK: 8.[address] Trachea midline[address] No JVD. CARDIOVASCULAR: Regular rate and rhythm, sinus on the monitor. RESPIRATORY: unlabored. no accessory muscle use. trach collar. GASTROINTESTINAL: Abdomen soft, non-tender, nondistended. PEG in place with tube feeds running, site benign appearing. MUSCULOSKELETAL: Extremities without clubbing, cyanosis, or edema. No obvious deformities. NEUROLOGICAL: Eyes open spontaneously, does not appear to track. L gaze preference. R hemiparesis. Localizes with LUE. Very slight withdrawal of LLE to noxious stimuli. Not following commands at this time A/P Assessment and Plan Neuro/Psych: Left MCA CVA - 5.5 mm of [id number] subfalcine herniation, diagnosed 04/24. Persistent right-sided hemiparesis. Prior History of stroke Continue Aspirin 325 mg by tube daily. Stroke occurred 04/24/17. Patient was not a candidate for thrombolysis per discussion with neurology and radiology at that time. Repeat head CT 05/15 showed slight improvement in the midline shift now 5.5 mm and mass effect Neurosurgery consulted 04/30- Dr. López, recommended conservative management, now signed off. Neurology Dr. Malave has followed previously, signed off. Cardiovascular: Hypertension Norvasc 10 mg po daily, Cardura 1 mg peg daily, metoprolol 12.5 peg bid, hydralazine 10 mg per per peg q8 hours. clonidine prn SBP >160 Echo showed EF 25-30%, Grade I diastolic disfunction Pulmonary: Chronic Tracheostomy Now recurrent Acute hypoxemic respiratory failure Acute hypoxic respiratory failure - aspiration possible HCAP - previous episode resolved. Large left pneumothorax status post #10 Tajik chest tube 05/07 - resolved.Chest tube d/c'd 05/12/17 R pleural effusion - Continue with vent support keep sat >92% Ipratropium/albuterol aerosols every 6 hours with albuterol aerosols every 2 hours Pulm toilet, trach care SBT daily as gato Pulm is following GI/liver: Elevated transaminases, resolved Severe protein calorie malnutrition Small bowel ileus- resolved Hepatitis C antibody positive with negative genotype/viral load Hepatic steatosis Currently on PEG tube feeding with Glucerna 1.5 goal 45 cc an hour. Check KUB abdomen r/o ileus Beneprotein tid. Lansoprazole 30 mg daily for GI regimen Endocrine: Diabetes mellitus SSI high scale-dose every 6 hours , Levemir 7u Q12 /Renal/FEN: Monitor renal function. I/O's, electrolytes replacement as needed Heme: Chronic Rivaroxaban use prior to admission Leukocytosis Normocytic anemia Follow CBC and coags. ID: MDR Pseudomonas aeruginosa and pneumonia (HCAP) MSSA bacteremia - resolved. Serratia/staph aureus pneumonia - resolved. C glabrata UTI - resolved. Citrobacter UTI - resolved. Serratia/MSSA sputum VAP resolved Current relevant cultures: 09/25/17 -sputum culture - Pseudomonas aeruginosa, multidrug resistant ( including Zerbaxa and Avycaz resistance). On Colistin nebs started 09/30 Per ID, Dr. Ranjan Saleh Prior cultures: Urine culture 04/26/17 sofie glabrata Blood culture 04/29/17 1 out of 4 bottles staph aureus Sputum culture 04/30/17 MSSA and Serratia. urine 05/07-> Serratia, treated. Urine 05/25: Citrobacter MSK: Left Intertroch Hip Fx s/p IMN 04/21/17. Vitamin D deficiency Sacral decubitus ulcer, Previously stage III, healing. Continue calcium vitamin D 250/125 one tablet 3x a day and cholecalciferol 5000 units daily. PT/OT evaluate and treat Maxsorb every 3 days/dressing changes every 3 days per wound care Continue beneprotein one packet 3x a day Prophylaxis: SCDs. Heparin 5000 subcut q8 hours. GI - lansoprazole 30 mg by PEG tube daily ACCESS: PIV. Level 2 Physician Nayana Moya MD Oct 11, 2017 17:51
[2017-10-12] VITALS (13 sets, daily range): BP systolic 117–173; BP diastolic 56–98; PULSE 56–76; RESP 16–24; TEMP 98.2–100.7; O2SAT 98–100
[2017-10-12] MEDS: INSULIN DETEMIR 100 UNITS/ML VIAL SQ SCH ×2 (00:38→11:42)
[2017-10-12] MEDS: hydrALAZINE HCL 10 MG TAB PEG SCH ×3 (05:46→22:23)
[2017-10-12] MEDS: ARTIFICIAL TEARS OPTH SOLN 15 ML BTL EACH EYE SCH ×3 (05:47→22:00)
[2017-10-12] MEDS: HEPARIN SODIUM - SQ 10,000 UNITS/ML VIAL SQ SCH ×3 (05:47→22:23)
[2017-10-12] MEDS: INSULIN NovoLIN REGULAR SUPPLEMENTAL SCALE SQ SCH ×4 (05:52→17:56)
[2017-10-12] MEDS: CHLORHEXIDINE 0.12% (ORAL KIT) 15 ML CUP MT SCH ×2 (08:00→20:00)
--- NOTE | 2017-10-12 08:09 | HHI.CCPN ---
Subjective Remarks/Hospital Course 04/24: 76-year-old female with a medical history significant for prior stroke, diabetes mellitus who was admitted with DKA and a hip fracture for which she underwent ORIF on 04/21. Patient developed altered mental status and was last noted to be okay around 5:30 AM. Subsequently there was a change in her mental status and she was noted to not be moving her right side for which stroke alert was called. Head CT showed large left MCA territory ischemic infarct with edema. Patient was transferred to the ICU by family medicine service in the critical care consult was requested. I evaluated the patient following arrival to the ICU. At that time she was laying in bed with her eyes open however not following commands and had a dense right hemiplegia. Patient was also evaluated by Dr. Malave from neurology. [facility] further discussed current event with patient's daughter following her arrival to the ICU. Per the daughter patient has been living with her since her stroke in 2014 and does ambulate however has been having problems with memory and incontinence as well as gait difficulties. She does not feel patient would want intubation or tracheostomy or PEG tube. 04/25: Patient remains encephalopathic, awake though not following commands consistently. Dense right hemiplegia persists. Appears to be awake enough to protect airway currently. Patient's daughter rescinded DNR and made a full code last evening. 04/26: Remains encephalopathic, not following commands. On Dobbhoff for tube feeds at 30 cc per hour. Had urinary retention and drained 2 L of urine after placing Moser catheter today. CT head done this morning with large left MCA territory infarct with left to right midline shift and significant cerebral edema. Hyperglycemia noted. Patient given mannitol earlier for increasing cerebral edema. 04/27: Remains encephalopathic, not following commands. On Dobbhoff tube feeds at 30 cc per hour. When into A. fib with RVR last night which responded with Lopressor 5 mg IV 1 dose. 04/28: Remains encephalopathic, arousable, not following commands. Moves left upper extremity spontaneously. Tolerating Dobbhoff tube feeds. Remains on nasal cannula. 04/29: Encephalopathic, eyes be arousable, moves left upper extremity spontaneously and occasionally opens eyes. Dense right hemiplegia and aphasia persists. On nasal cannula. Dobbhoff tube feeds being advanced. Patient was transfused 1 unit PRBCs yesterday. Urine culture with yeast from yesterday for which fluconazole being started. Had brief run of A. fib with RVR which improved with Lopressor IV, currently in sinus rhythm. 04/30: Worsening hypoxemic respiratory failure, currently on partial nonrebreather. Remains lethargic. WBC count increased from 14.6 today 20.7. Chest x-ray shows bilateral worsening infiltrates and small pleural effusions. Sodium 154, weight up by 8 KG. Albumin 1 mg Bumex 1. Also one dose of albumin. Remains in sinus tachycardia. Tmax 101.3 05/01: Patient was intubated yesterday for lack of airway protection, and severe hypoxemic respiratory failure from aspiration pneumonia involving multiple lobes. Patient is on the vent lethargic, no spontaneous eye opening. Chest x- ray remains unchanged. Remains intermittently febrile Tmax 101.3. WBC count improving 05/02: Remains critically ill with no improvement in mental status. Spiking fever of 101.7. Blood culture and sputum culture with staph aureus sputum also growing GNR, WBC count 22,000 now indicating worsening sepsis. Daughter still requesting aggressive care. Palliative care is following 05/03: S/P large area dominant hemisphere CVA. No neurological improvement. Now with pneumonia (infiltrate, fever, leukocytosis) and appropriate abx coverage. She will have a hard time surviving the hip fx, CVA, and pneumonia. Palliative Care needs to be a mainstay of our plan. 05/04: No improvement in neuro status. Sputum C&S allows us to narrow abx coverage to levaquin alone. Lungs remain quite congested. Enteral nutrition tolerated. 05/05: No improvement in neuro status. Moves left arm spontaneously. Flaccid right side. Unresponsive. Persistent mild hypoglycemia - will cut Levemir 50%. Abdomen more distended, check KUB. 05/06: CT head with massive left MCA infarction and > 1 cm shift in right handed woman. She opens eyes, does not track. 05/07: Patient open eyes. Attempts to respond. Dominican speaking. Tolerating tube feeds. Positive bowel movement. Volume overloaded. 05/08: Tmax 99.4. Potassium being replaced. Ultrasound gallbladder currently pending. Transaminases are trending downward. Gently diurese. 05/09: Alk phos decreasing. Remains with good urine output. Neurological status not improving. 05/10: Fixed neuro deficit unchanged. Profound CVA. 05/11: Appears to track with eyes today. No improvement in motor function. Remains very edematous, diuretics doubled. 05/12: Continued thick secretions. Afebrile, leukocytosis resolved. 05/13: CT head with completed left MCA stroke, persistent edema and 5 mm shift away. Does not last long on SBTs - major decision now is trach/PEG. 05/14: Daughter has decided to proceed with trach and PEG. I have been pessimistic with her about chances for a meaningful recovery. 05/15: Plan for trach today. No change in neuro status. Still ventilator dependent. 05/16: Trach completed. Await PEG and disposition. 05/17: PEG placed 05/16. Start TFs today after nutrition consult. Work to place patient. 05/18: No improvement. Does open eyes, no focus or tracking. Completed large dominant (left) hemisphere CVA in right handed woman with severe deficit. Medicaid pending status, [facility] is following. 05/19: no improvements in neuro exam. ready for LTAC. will d/c moser and rectal tubes. 05/20: no changes or improvements. very difficult placement due to patient not [place] citizen. 05/21: no improvements. resting on vent overnight due to distress. 05/22: no neurologic changes. no improvements. attempted T-piece which failed after 10 minutes. 05/23: no improvements. poor prognosis. poor neuro exam. still failing weaning trials. 05/24: no improvements or changes. still failing t-piece trials. 05/25: No acute changes of improvement overnight. Failed CPAP due to apnea, tried again currently tolerating. Neurological exam unchanged. 05/26: No improvement in neurological function. 05/27: Patient has required Moser catheter because of breakdown of skin on upper thighs and groin. Urine has become infected, will treat. 05/28: Some drainage from around trach (placed 2 weeks ago). Will change out trach tube and inspect neck wound. I&O straight cath q6h order entered 05/17. 05/29: No improvement, remains obtunded. Failed CPAP trials yesterday and again today due to apnea. Moser placed due to persistent urinary retention 05/30: Obtunded, unresponsive. Failed SBTs, remains ventilator dependent. 05/31: Patient continues to fail SBT failed yesterday due to apnea. Neuro exam remains unchanged. 06/01: No acute changes overnight, 06/02: no changes. ekg done overnight for ? EKG changes seen on telemetry which were not visualized on EKG. 06/03: no improvements or changes. had long conversation with daughter yesterday. only facility which would accept patient is in [place] and daughter is refusing to allow patient to go there because it is "too far away." Daughter continues to push for aggressive care despite no improvements, and resistant to Hospice. Patient does not need acute inpatient therapy but lacks funding for appropriate disposition. 06/04: No acute events overnight, failed SBT due to apnea. 06/05: No acute events, continues to fail spontaneous breathing trials. Unable to wean 06/06 Currently tolerating CPAP. Will attempt TP today up to 4 hours. No acute events overnight 06/07: Tolerating trach collar/T-piece. Transfer soon. 06/08: Awaiting transfer. 06/09: Remains ventilator dependent. No improvement in neurological function. 06/10: No improvement. Daughter is not attending preplanned meetings to discuss disposition 06/12: Afebrile. Neurologically stable and unchanged. Noted sodium 135. Adding sodium chloride tablets 1 today. Not on free water.. Tolerating tube feeds at goal 45 cc an hour. 06/13: No improvement in neurological function. 06/14: No improvement. Fluid balance correct. Gas exchange acceptable. 06/15: No improvement. Obtunded and unresponsive. 06/16: no improvements in mental status. KUB overnight with dilated small bowel loops. given methylnaltrexone and erythromycin. today abdomen is soft and tolerating tube feeds. 06/17: tolerated t-piece x 6 hours yesterday. rested on cpap overnight. no changes in encephalopathy. 06/18: Currently on ventilator overnight. Multiple bowel movements. Thick yellow secretions noted in ventilator circuit. Opens eyes. 06/19: Afebrile. Tolerating stretcher chair yesterday on PSV. Tolerating tube feeding. Neurologically unchanged. 06/20: Afebrile. Resting in bed in no acute distress in sitting position. Currently on ventilator set sitting. Tolerated stretcher chair/PSV trial 6 hours yesterday. Neurologically unchanged. 06/21: Tmax 100.8. Patient with copious thick yellow secretions. Tolerating tube feeds. Positive bowel movement. Lasted only 1 hour PSV yesterday 06/22: Tmax 99.9. Continues to have thick secretions. Tolerating tube feeding. Positive BM. 06/23: Afebrile. Continues to have thick tracheal secretions from tracheostomy site. Tolerating tube feeding. 3 bowels movements. Opens eyes to stimulation. Stares at you but does not follow commands. 06/24: Remains encephalopathic, on mechanical ventilation via tracheostomy. Tolerating PEG feeds 06/25: Remains encephalopathic on mechanical ventilation. Tolerated C Pap +5 with pressure support +10 all day yesterday. Tolerating PEG feeds. 06/26: No improvement.Vent dependent still. 06/27: Remains encephalopathic, on mech vent via trach. Daily CPAP trials. 06/28: Unable to wean from ventilator. 06/29: Neurologically unchanged. Remains on mechanical ventilation. Daily C Pap trials ongoing. 06/30: Remains encephalopathic. On C Pap overnight. Tolerating tube feeds. 07/01: No change in neurologic status. On mechanical ventilation via tracheostomy. Tolerating tube feeds. 07/02: Remains encephalopathic. No change in neurologic status. On mechanical ventilation via tracheostomy. Daily C Pap trials ongoing. 07/03: Occasional spontaneous eye opening however remains encephalopathic. On mechanical ventilation via tracheostomy. 07/04: Tmax 99.2. Multiple bowel movements overnight. Tolerating tube feeds. On T piece trial at 5 L since noon yesterday. Otherwise neurologically unchanged. Daughter encouraged by movement of left leg. 07/05: Currently resting in bed on T piece 36 hours. Tolerates chair. No changes neurologically. Positive BM's. Tolerating her tube feeding. 07/06: Continue T-piece trials, if tolerated consider transfer to floor. 07/07: Extended T-piece trial. Plan transfer to floor. 07/09: Patient is experiencing apnea episodes and had to be placed back on higher FiO2.. Hold transfer. 07/10: X-ray left hip shows good anatomic alignment. Still requiring elevated FiO2. 07/11: Prealbumin 20, nutritional support is adequate and status is stable. No neurological improvement. 07/12: No improvement in neurological function. Continued acceptable respiratory effort. 07/13: No change. Subjective 10/03/17 Dr. Rizo notified supervisor process testing that patient would be transferring to ICU. Patient is known to [facility] service. She was originally admitted 04/20/17 after a fall with hip fracture resulting in ORIF 04/21. Postoperatively, she developed large R MCA stroke with midline shift. Her neurologic condition remained poor and she underwent trach 05/15/17 and PEG 05/16/17. She was eventually transitioned to Tpiece and transferred to floor. She has suffered from multiple infectious complications due to her persistent bedfast and trach dependent state. 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 She has been on trach collar with worsening hypoxemia therefore she is transferred to [facility]. CXR from yesterday demonstrates bilateral pulmonary infiltrates. She has also had hyperkalemia today up to 6.7 which has been treated with kayexalate, down to 6. 2: improvement in air space disease with diuresis and bronch yesterday. no overall improvements in chronic poor prognosis. unlikely to survive this hospital stay. daughter has poor insight into the gravity of her mother's medical condition. she will not recover meaningfully. 10/05: continuing to clinically improve from a respiratory standpoint. no improvements in overall poor function. off vent on t-piece today. can likely transition out of ICU tomorrow. 10/06 No events overnight. Remains on ventilator via trach. Afebrile. 10/07 No events overnight. Afebrile. 10/08 Patient is on ventilator via trach. afebrile. 10/09 No events overnight. Tolerating tube feeds. Afebrile. 10/10 Patient is on ventilators via trach. 10/11: Nursing reported patient intermittently follow commands today. BUN slightly elevated. Patient tolerating tube feeding 10/12: The patient tolerated CPAP for approximately 6 hours yesterday. No acute changes overnight. No neurological change in status. Objective Vital Signs Date Time Temp Pulse Resp B/P (MAP) Pulse Ox O2 Delivery O2 Flow Rate FiO2 10/12/17 08:00 30 10/12/17 07:57 99 10/12/17 04:00 98.8 62 18 136/66 (89) Intake and Output 10/12/17 10/12/17 10/13/17 08:00 16:00 00:00 Intake Total 868 ml Output Total 100 ml Balance 768 ml Result Diagram: 10/11/17 0737 10/11/17 0737 Imaging Last Impressions Chest X-Ray 10/04/17 0900 Signed Impressions: Service Date/Time: Wednesday, October 04, 2017 08:53 - CONCLUSION: Significant improvement with almost complete resolution of bilateral airspace disease. Benja Ramsey MD Thoracentesis 08/05/17 1535 Signed Impressions: Service Date/Time: Saturday, August 05, 2017 16:08 - CONCLUSION: Uncomplicated CT-guided thoracentesis. Sage Adler MD Chest Ultrasound 08/02/17 0000 Signed Impressions: Service Date/Time: Tuesday, August 01, 2017 22:06 - CONCLUSION: 1. Moderate right pleural effusion, as above. Alejo De La Vega MD Hip and Pelvis X-Ray 07/09/17 0000 Signed Impressions: Service Date/Time: Sunday, July 09, 2017 14:04 - CONCLUSION: Anatomic alignment. Ricardo Middleton MD FACR Liver Ultrasound 06/19/17 0000 Signed Impressions: Service Date/Time: June 13:20 - CONCLUSION: 1. Mildly increased echotexture of the liver characteristic of hepatic steatosis. 2. Gallbladder sludge. Obdulio Sam MD Abdomen X-Ray 06/16/17 0000 Signed Impressions: Service Date/Time: Friday, June 16, 2017 04:48 - CONCLUSION: 1. Continued small bowel ileus. There has been no significant change when compared to the prior exam. Toy Duran MD Head CT 05/15/17 0000 Signed Impressions: Service Date/Time: May 19:59 - CONCLUSION: 1. 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 2. No bleed or new/acute infarct. Obdulio Simms MD Gall Bladder Ultrasound 05/08/17 0000 Signed Impressions: Service Date/Time: May 08:23 - CONCLUSION: Focally unremarkable appearance of the gallbladder Obdulio Chun MD Abdomen/Pelvis CT 05/07/17 0000 Signed Impressions: Service Date/Time: Sunday, May 07, 2017 13:23 - CONCLUSION: 1. Large left pneumothorax. 2. Bilateral lower lobe consolidation and bilateral moderate size pleural effusions. 3. Significant soft tissue thickening of the right lateral chest wall and left gluteus muscle. 4. Mild ascites. The findings were called to Dr. Carney. Deangelo Zamora MD Chest CT 04/30/17 0000 Signed Impressions: Service Date/Time: Sunday, April 30, 2017 09:20 - CONCLUSION: 1. Bilateral pulmonary infiltrates more pronounced within the lower lobes with tiny bilateral pleural effusions. Material seen filling the lower lobe bronchi bilaterally either related to purulent material or perhaps mucus plugging. Deangelo Wren Jr., MD Carotid Artery Ultrasound 04/24/17 0000 Signed Impressions: Service Date/Time: April 09:45 - CONCLUSION: 1. No hemodynamically significant carotid artery stenosis. Arnie Middleton MD Hip X-Ray 04/21/17 0000 Signed Impressions: Service Date/Time: Friday, April 21, 2017 11:36 - CONCLUSION: Fluoroscopic images during placement of intramedullary siomara left femur. Benja Ramsey MD Objective Remarks GENERAL: Elderly female who is laying in [facility] bed on mechanical ventilation SKIN: Warm and dry, adequately perfused. HEAD: Atraumatic. Normocephalic. mucous membranes moist. NECK: 8.[address] Trachea midline[address] No JVD. CARDIOVASCULAR: Regular rate and rhythm, sinus on the monitor. RESPIRATORY: unlabored. no accessory muscle use. trach collar. GASTROINTESTINAL: Abdomen soft, non-tender, nondistended. PEG in place with tube feeds running, site benign appearing. MUSCULOSKELETAL: Extremities without clubbing, cyanosis, or edema. No obvious deformities. NEUROLOGICAL: Eyes open spontaneously, does not appear to track. L gaze preference. R hemiparesis. Localizes with LUE. Very slight withdrawal of LLE to noxious stimuli. Not following commands at this time A/P Assessment and Plan Neuro/Psych: Left MCA CVA - 5.5 mm of [id number] subfalcine herniation, diagnosed 04/24. Persistent right-sided hemiparesis. Prior History of stroke Continue Aspirin 325 mg by tube daily. Stroke occurred 04/24/17. Patient was not a candidate for thrombolysis per discussion with neurology and radiology at that time. Repeat head CT 05/15 showed slight improvement in the midline shift now 5.5 mm and mass effect Neurosurgery consulted 04/30- Dr. López, recommended conservative management, now signed off. Neurology Dr. Malave has followed previously, signed off. Cardiovascular: Hypertension Norvasc 10 mg po daily, Cardura 1 mg peg daily, metoprolol 12.5 peg bid, hydralazine 10 mg per per peg q8 hours. clonidine prn SBP >160 Echo showed EF 25-30%, Grade I diastolic disfunction Pulmonary: Chronic Tracheostomy Now recurrent Acute hypoxemic respiratory failure Acute hypoxic respiratory failure - aspiration possible HCAP - previous episode resolved. Large left pneumothorax status post #10 Turkmen chest tube 05/07 - resolved.Chest tube d/c'd 05/12/17 R pleural effusion - Continue with vent support keep sat >92% Ipratropium/albuterol aerosols every 6 hours with albuterol aerosols every 2 hours Pulm toilet, trach care SBT daily as gato Pulm is following GI/liver: Elevated transaminases, resolved Severe protein calorie malnutrition Small bowel ileus- resolved Hepatitis C antibody positive with negative genotype/viral load Hepatic steatosis Currently on PEG tube feeding with Glucerna 1.5 goal 45 cc an hour. Check KUB abdomen r/o ileus Beneprotein tid. Lansoprazole 30 mg daily for GI regimen Endocrine: Diabetes mellitus SSI high scale-dose every 6 hours , Levemir 7u Q12 /Renal/FEN: Monitor renal function. I/O's, electrolytes replacement as needed Heme: Chronic Rivaroxaban use prior to admission Leukocytosis Normocytic anemia Follow CBC and coags. ID: MDR Pseudomonas aeruginosa and pneumonia (HCAP) MSSA bacteremia - resolved. Serratia/staph aureus pneumonia - resolved. C glabrata UTI - resolved. Citrobacter UTI - resolved. Serratia/MSSA sputum VAP resolved Current relevant cultures: 09/25/17 -sputum culture - Pseudomonas aeruginosa, multidrug resistant ( including Zerbaxa and Avycaz resistance). On Colistin nebs started 09/30 Per ID, Dr. Ranjan Saleh Prior cultures: Urine culture 04/26/17 sofie glabrata Blood culture 04/29/17 1 out of 4 bottles staph aureus Sputum culture 04/30/17 MSSA and Serratia. urine 05/07-> Serratia, treated. Urine 05/25: Citrobacter MSK: Left Intertroch Hip Fx s/p IMN 04/21/17. Vitamin D deficiency Sacral decubitus ulcer, Previously stage III, healing. Continue calcium vitamin D 250/125 one tablet 3x a day and cholecalciferol 5000 units daily. PT/OT evaluate and treat Maxsorb every 3 days/dressing changes every 3 days per wound care Continue beneprotein one packet 3x a day Prophylaxis: SCDs. Heparin 5000 subcut q8 hours. GI - lansoprazole 30 mg by PEG tube daily ACCESS: PIV. Level 2 Physician Nayana Moya MD Oct 12, 2017 08:09
[2017-10-12] MEDS: DOXAZOSIN MESYLATE 1 MG TAB PEG SCH (08:39)
[2017-10-12] MEDS: CHOLECALCIFEROL (VIT D3) 5000 UNIT CAP PEG SCH (08:39)
[2017-10-12] MEDS: LACTOBACILLUS ACIDOPHILUS TAB PEG SCH ×2 (08:39→22:23)
[2017-10-12] MEDS: METOPROLOL TARTRATE 25 MG TAB PEG SCH ×2 (08:39→22:23)
[2017-10-12] MEDS: ASPIRIN 325 MG TAB DOBHOFF SCH (08:39)
[2017-10-12] MEDS: CALCIUM/VITAMIN D 250 MG/125 U TAB PEG SCH ×3 (08:40→17:56)
[2017-10-12] MEDS: LANSOPRAZOLE SOLUTAB 30 MG TAB NG SCH (08:40)
[2017-10-12] MEDS: SODIUM CHLORIDE 0.9% FLUSH 5 ML FLUSH IV FLUSH SCH ×2 (09:00→21:00)
[2017-10-12] MEDS: RESP: COLISTIN 150 MG VIAL NEB SCH ×3 (09:12→22:34)
[2017-10-13] VITALS (12 sets, daily range): BP systolic 111–149; BP diastolic 56–75; PULSE 54–72; RESP 16–20; TEMP 97.2–98.8; O2SAT 95–100
[2017-10-13] MEDS: ARTIFICIAL TEARS OPTH SOLN 15 ML BTL EACH EYE SCH ×3 (06:00→22:55)
[2017-10-13] MEDS: INSULIN NovoLIN REGULAR SUPPLEMENTAL SCALE SQ SCH ×4 (06:00→17:43)
[2017-10-13] MEDS: hydrALAZINE HCL 10 MG TAB PEG SCH ×3 (06:54→22:54)
[2017-10-13] MEDS: HEPARIN SODIUM - SQ 10,000 UNITS/ML VIAL SQ SCH ×3 (06:55→22:54)
[2017-10-13] MEDS: RESP: COLISTIN 150 MG VIAL NEB SCH ×3 (07:40→23:57)
[2017-10-13] MEDS: CHLORHEXIDINE 0.12% (ORAL KIT) 15 ML CUP MT SCH ×2 (08:00→20:30)
[2017-10-13] MEDS: METOPROLOL TARTRATE 25 MG TAB PEG SCH ×2 (08:11→20:31)
[2017-10-13] MEDS: LACTOBACILLUS ACIDOPHILUS TAB PEG SCH ×2 (08:11→20:32)
[2017-10-13] MEDS: CALCIUM/VITAMIN D 250 MG/125 U TAB PEG SCH ×3 (08:11→17:01)
[2017-10-13] MEDS: ASPIRIN 325 MG TAB DOBHOFF SCH (08:12)
[2017-10-13] MEDS: LANSOPRAZOLE SOLUTAB 30 MG TAB NG SCH (08:12)
[2017-10-13] MEDS: DOXAZOSIN MESYLATE 1 MG TAB PEG SCH (08:12)
[2017-10-13] MEDS: SODIUM CHLORIDE 0.9% FLUSH 5 ML FLUSH IV FLUSH SCH ×2 (08:12→20:31)
[2017-10-13] MEDS: CHOLECALCIFEROL (VIT D3) 5000 UNIT CAP PEG SCH (08:13)
[2017-10-13 11:17] LABS: HEMOGLOBIN 9.5 GM/DL (11.6-15.3); MEAN CELL VOLUME 97.3 FL (80.0-100.0); MEAN CORPUSCULAR HGB CONC 33.9 % (32.0-36.0); MEAN PLATELET VOLUME 8.7 FL (7.0-11.0); PLATELET COUNT 402 TH/MM3 (150-450); RED BLOOD COUNT 2.88 MIL/MM3 (4.00-5.30); RED CELL DISTRIBUTION WIDTH 15.5 % (11.6-17.2); WHITE BLOOD COUNT 11.3 TH/MM3 (4.0-11.0)
--- NOTE | 2017-10-13 11:22 | HHI.CCPN ---
Subjective Remarks/Hospital Course 04/24: 76-year-old female with a medical history significant for prior stroke, diabetes mellitus who was admitted with DKA and a hip fracture for which she underwent ORIF on 04/21. Patient developed altered mental status and was last noted to be okay around 5:30 AM. Subsequently there was a change in her mental status and she was noted to not be moving her right side for which stroke alert was called. Head CT showed large left MCA territory ischemic infarct with edema. Patient was transferred to the ICU by family medicine service in the critical care consult was requested. I evaluated the patient following arrival to the ICU. At that time she was laying in bed with her eyes open however not following commands and had a dense right hemiplegia. Patient was also evaluated by Dr. Malave from neurology. [facility] further discussed current event with patient's daughter following her arrival to the ICU. Per the daughter patient has been living with her since her stroke in 2014 and does ambulate however has been having problems with memory and incontinence as well as gait difficulties. She does not feel patient would want intubation or tracheostomy or PEG tube. 04/25: Patient remains encephalopathic, awake though not following commands consistently. Dense right hemiplegia persists. Appears to be awake enough to protect airway currently. Patient's daughter rescinded DNR and made a full code last evening. 04/26: Remains encephalopathic, not following commands. On Dobbhoff for tube feeds at 30 cc per hour. Had urinary retention and drained 2 L of urine after placing Moser catheter today. CT head done this morning with large left MCA territory infarct with left to right midline shift and significant cerebral edema. Hyperglycemia noted. Patient given mannitol earlier for increasing cerebral edema. 04/27: Remains encephalopathic, not following commands. On Dobbhoff tube feeds at 30 cc per hour. When into A. fib with RVR last night which responded with Lopressor 5 mg IV 1 dose. 04/28: Remains encephalopathic, arousable, not following commands. Moves left upper extremity spontaneously. Tolerating Dobbhoff tube feeds. Remains on nasal cannula. 04/29: Encephalopathic, eyes be arousable, moves left upper extremity spontaneously and occasionally opens eyes. Dense right hemiplegia and aphasia persists. On nasal cannula. Dobbhoff tube feeds being advanced. Patient was transfused 1 unit PRBCs yesterday. Urine culture with yeast from yesterday for which fluconazole being started. Had brief run of A. fib with RVR which improved with Lopressor IV, currently in sinus rhythm. 04/30: Worsening hypoxemic respiratory failure, currently on partial nonrebreather. Remains lethargic. WBC count increased from 14.6 today 20.7. Chest x-ray shows bilateral worsening infiltrates and small pleural effusions. Sodium 154, weight up by 8 KG. Albumin 1 mg Bumex 1. Also one dose of albumin. Remains in sinus tachycardia. Tmax 101.3 05/01: Patient was intubated yesterday for lack of airway protection, and severe hypoxemic respiratory failure from aspiration pneumonia involving multiple lobes. Patient is on the vent lethargic, no spontaneous eye opening. Chest x- ray remains unchanged. Remains intermittently febrile Tmax 101.3. WBC count improving 05/02: Remains critically ill with no improvement in mental status. Spiking fever of 101.7. Blood culture and sputum culture with staph aureus sputum also growing GNR, WBC count 22,000 now indicating worsening sepsis. Daughter still requesting aggressive care. Palliative care is following 05/03: S/P large area dominant hemisphere CVA. No neurological improvement. Now with pneumonia (infiltrate, fever, leukocytosis) and appropriate abx coverage. She will have a hard time surviving the hip fx, CVA, and pneumonia. Palliative Care needs to be a mainstay of our plan. 05/04: No improvement in neuro status. Sputum C&S allows us to narrow abx coverage to levaquin alone. Lungs remain quite congested. Enteral nutrition tolerated. 05/05: No improvement in neuro status. Moves left arm spontaneously. Flaccid right side. Unresponsive. Persistent mild hypoglycemia - will cut Levemir 50%. Abdomen more distended, check KUB. 05/06: CT head with massive left MCA infarction and > 1 cm shift in right handed woman. She opens eyes, does not track. 05/07: Patient open eyes. Attempts to respond. [place] speaking. Tolerating tube feeds. Positive bowel movement. Volume overloaded. 05/08: Tmax 99.4. Potassium being replaced. Ultrasound gallbladder currently pending. Transaminases are trending downward. Gently diurese. 05/09: Alk phos decreasing. Remains with good urine output. Neurological status not improving. 05/10: Fixed neuro deficit unchanged. Profound CVA. 05/11: Appears to track with eyes today. No improvement in motor function. Remains very edematous, diuretics doubled. 05/12: Continued thick secretions. Afebrile, leukocytosis resolved. 05/13: CT head with completed left MCA stroke, persistent edema and 5 mm shift away. Does not last long on SBTs - major decision now is trach/PEG. 05/14: Daughter has decided to proceed with trach and PEG. I have been pessimistic with her about chances for a meaningful recovery. 05/15: Plan for trach today. No change in neuro status. Still ventilator dependent. 05/16: Trach completed. Await PEG and disposition. 05/17: PEG placed 05/16. Start TFs today after nutrition consult. Work to place patient. 05/18: No improvement. Does open eyes, no focus or tracking. Completed large dominant (left) hemisphere CVA in right handed woman with severe deficit. Medicaid pending status, [facility] is following. 05/19: no improvements in neuro exam. ready for LTAC. will d/c moser and rectal tubes. 05/20: no changes or improvements. very difficult placement due to patient not [place] citizen. 05/21: no improvements. resting on vent overnight due to distress. 05/22: no neurologic changes. no improvements. attempted T-piece which failed after 10 minutes. 05/23: no improvements. poor prognosis. poor neuro exam. still failing weaning trials. 05/24: no improvements or changes. still failing t-piece trials. 05/25: No acute changes of improvement overnight. Failed CPAP due to apnea, tried again currently tolerating. Neurological exam unchanged. 05/26: No improvement in neurological function. 05/27: Patient has required Moser catheter because of breakdown of skin on upper thighs and groin. Urine has become infected, will treat. 05/28: Some drainage from around trach (placed 2 weeks ago). Will change out trach tube and inspect neck wound. I&O straight cath q6h order entered 05/17. 05/29: No improvement, remains obtunded. Failed CPAP trials yesterday and again today due to apnea. Moser placed due to persistent urinary retention 05/30: Obtunded, unresponsive. Failed SBTs, remains ventilator dependent. 05/31: Patient continues to fail SBT failed yesterday due to apnea. Neuro exam remains unchanged. 06/01: No acute changes overnight, 06/02: no changes. ekg done overnight for ? EKG changes seen on telemetry which were not visualized on EKG. 06/03: no improvements or changes. had long conversation with daughter yesterday. only facility which would accept patient is in [place] and daughter is refusing to allow patient to go there because it is "too far away." Daughter continues to push for aggressive care despite no improvements, and resistant to Hospice. Patient does not need acute inpatient therapy but lacks funding for appropriate disposition. 06/04: No acute events overnight, failed SBT due to apnea. 06/05: No acute events, continues to fail spontaneous breathing trials. Unable to wean 06/06 Currently tolerating CPAP. Will attempt TP today up to 4 hours. No acute events overnight 06/07: Tolerating trach collar/T-piece. Transfer soon. 06/08: Awaiting transfer. 06/09: Remains ventilator dependent. No improvement in neurological function. 06/10: No improvement. Daughter is not attending preplanned meetings to discuss disposition 06/12: Afebrile. Neurologically stable and unchanged. Noted sodium 135. Adding sodium chloride tablets 1 today. Not on free water.. Tolerating tube feeds at goal 45 cc an hour. 06/13: No improvement in neurological function. 06/14: No improvement. Fluid balance correct. Gas exchange acceptable. 06/15: No improvement. Obtunded and unresponsive. 06/16: no improvements in mental status. KUB overnight with dilated small bowel loops. given methylnaltrexone and erythromycin. today abdomen is soft and tolerating tube feeds. 06/17: tolerated t-piece x 6 hours yesterday. rested on cpap overnight. no changes in encephalopathy. 06/18: Currently on ventilator overnight. Multiple bowel movements. Thick yellow secretions noted in ventilator circuit. Opens eyes. 06/19: Afebrile. Tolerating stretcher chair yesterday on PSV. Tolerating tube feeding. Neurologically unchanged. 06/20: Afebrile. Resting in bed in no acute distress in sitting position. Currently on ventilator set sitting. Tolerated stretcher chair/PSV trial 6 hours yesterday. Neurologically unchanged. 06/21: Tmax 100.8. Patient with copious thick yellow secretions. Tolerating tube feeds. Positive bowel movement. Lasted only 1 hour PSV yesterday 06/22: Tmax 99.9. Continues to have thick secretions. Tolerating tube feeding. Positive BM. 06/23: Afebrile. Continues to have thick tracheal secretions from tracheostomy site. Tolerating tube feeding. 3 bowels movements. Opens eyes to stimulation. Stares at you but does not follow commands. 06/24: Remains encephalopathic, on mechanical ventilation via tracheostomy. Tolerating PEG feeds 06/25: Remains encephalopathic on mechanical ventilation. Tolerated C Pap +5 with pressure support +10 all day yesterday. Tolerating PEG feeds. 06/26: No improvement.Vent dependent still. 06/27: Remains encephalopathic, on mech vent via trach. Daily CPAP trials. 06/28: Unable to wean from ventilator. 06/29: Neurologically unchanged. Remains on mechanical ventilation. Daily C Pap trials ongoing. 06/30: Remains encephalopathic. On C Pap overnight. Tolerating tube feeds. 07/01: No change in neurologic status. On mechanical ventilation via tracheostomy. Tolerating tube feeds. 07/02: Remains encephalopathic. No change in neurologic status. On mechanical ventilation via tracheostomy. Daily C Pap trials ongoing. 07/03: Occasional spontaneous eye opening however remains encephalopathic. On mechanical ventilation via tracheostomy. 07/04: Tmax 99.2. Multiple bowel movements overnight. Tolerating tube feeds. On T piece trial at 5 L since noon yesterday. Otherwise neurologically unchanged. Daughter encouraged by movement of left leg. 07/05: Currently resting in bed on T piece 36 hours. Tolerates chair. No changes neurologically. Positive BM's. Tolerating her tube feeding. 07/06: Continue T-piece trials, if tolerated consider transfer to floor. 07/07: Extended T-piece trial. Plan transfer to floor. 07/09: Patient is experiencing apnea episodes and had to be placed back on higher FiO2.. Hold transfer. 07/10: X-ray left hip shows good anatomic alignment. Still requiring elevated FiO2. 07/11: Prealbumin 20, nutritional support is adequate and status is stable. No neurological improvement. 07/12: No improvement in neurological function. Continued acceptable respiratory effort. 07/13: No change. Subjective 10/03/17 Dr. Rizo notified blood donor unit assistant that patient would be transferring to ICU. Patient is known to [facility] service. She was originally admitted 04/20/17 after a fall with hip fracture resulting in ORIF 04/21. Postoperatively, she developed large R MCA stroke with midline shift. Her neurologic condition remained poor and she underwent trach 05/15/17 and PEG 05/16/17. She was eventually transitioned to Tpiece and transferred to floor. She has suffered from multiple infectious complications due to her persistent bedfast and trach dependent state. 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 She has been on trach collar with worsening hypoxemia therefore she is transferred to [facility]. CXR from yesterday demonstrates bilateral pulmonary infiltrates. She has also had hyperkalemia today up to 6.7 which has been treated with kayexalate, down to 6. 2: improvement in air space disease with diuresis and bronch yesterday. no overall improvements in chronic poor prognosis. unlikely to survive this hospital stay. daughter has poor insight into the gravity of her mother's medical condition. she will not recover meaningfully. 10/05: continuing to clinically improve from a respiratory standpoint. no improvements in overall poor function. off vent on t-piece today. can likely transition out of ICU tomorrow. 10/06 No events overnight. Remains on ventilator via trach. Afebrile. 10/07 No events overnight. Afebrile. 10/08 Patient is on ventilator via trach. afebrile. 10/09 No events overnight. Tolerating tube feeds. Afebrile. 10/10 Patient is on ventilators via trach. 10/11: Nursing reported patient intermittently follow commands today. BUN slightly elevated. Patient tolerating tube feeding 10/12: The patient tolerated CPAP for approximately 6 hours yesterday. No acute changes overnight. No neurological change in status. 10/13 No events overnight. Afebrile. Objective Vital Signs Date Time Temp Pulse Resp B/P (MAP) Pulse Ox O2 Delivery O2 Flow Rate FiO2 10/13/17 08:12 30 10/13/17 08:12 99 10/13/17 04:00 98.8 57 19 144/73 (96) Intake and Output 10/13/17 10/13/17 10/14/17 08:00 16:00 00:00 Intake Total 694 ml Output Total 500 ml Balance 194 ml Result Diagram: 10/13/17 1045 10/11/17 0737 Other Results Laboratory Tests Test 10/13/17 10:45 White Blood Count 11.3 TH/MM3 Red Blood Count 2.88 MIL/MM3 Hemoglobin 9.5 GM/DL Hematocrit 28.0 % Mean Corpuscular Volume 97.3 FL Mean Corpuscular Hemoglobin 33.0 PG Mean Corpuscular Hemoglobin Concent 33.9 % Red Cell Distribution Width 15.5 % Platelet Count 402 TH/MM3 Mean Platelet Volume 8.7 FL Imaging Last Impressions Chest X-Ray 10/11/17 0000 Signed Impressions: Service Date/Time: Wednesday, October 11, 2017 01:43 - CONCLUSION: 1. Tracheostomy in good position. Minimal basilar atelectasis or scarring. No effusion. Jaime Velasquez MD Abdomen X-Ray 10/10/17 0000 Signed Impressions: Service Date/Time: Tuesday, October 10, 2017 11:35 - CONCLUSION: No dilated bowel loops. Benja Ramsey MD Thoracentesis 08/05/17 1535 Signed Impressions: Service Date/Time: Saturday, August 05, 2017 16:08 - CONCLUSION: Uncomplicated CT-guided thoracentesis. Sage Adler MD Chest Ultrasound 08/02/17 0000 Signed Impressions: Service Date/Time: Tuesday, August 01, 2017 22:06 - CONCLUSION: 1. Moderate right pleural effusion, as above. Alejo De La Vega MD Hip and Pelvis X-Ray 07/09/17 0000 Signed Impressions: Service Date/Time: Sunday, July 09, 2017 14:04 - CONCLUSION: Anatomic alignment. Ricardo Middleton MD FACR Liver Ultrasound 06/19/17 0000 Signed Impressions: Service Date/Time: June 13:20 - CONCLUSION: 1. Mildly increased echotexture of the liver characteristic of hepatic steatosis. 2. Gallbladder sludge. Obdulio Sam MD Head CT 05/15/17 0000 Signed Impressions: Service Date/Time: , May 15, 2017 19:59 - CONCLUSION: 1. 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 2. No bleed or new/acute infarct. Obdulio Simms MD Gall Bladder Ultrasound 05/08/17 0000 Signed Impressions: Service Date/Time: May 08:23 - CONCLUSION: Focally unremarkable appearance of the gallbladder Obdulio Chun MD Abdomen/Pelvis CT 05/07/17 0000 Signed Impressions: Service Date/Time: Sunday, May 07, 2017 13:23 - CONCLUSION: 1. Large left pneumothorax. 2. Bilateral lower lobe consolidation and bilateral moderate size pleural effusions. 3. Significant soft tissue thickening of the right lateral chest wall and left gluteus muscle. 4. Mild ascites. The findings were called to Dr. Carney. Deangelo Zamora MD Chest CT 04/30/17 0000 Signed Impressions: Service Date/Time: Sunday, April 30, 2017 09:20 - CONCLUSION: 1. Bilateral pulmonary infiltrates more pronounced within the lower lobes with tiny bilateral pleural effusions. Material seen filling the lower lobe bronchi bilaterally either related to purulent material or perhaps mucus plugging. Deangelo Wren Jr., MD Carotid Artery Ultrasound 04/24/17 0000 Signed Impressions: Service Date/Time: April 09:45 - CONCLUSION: 1. No hemodynamically significant carotid artery stenosis. Arnie Middleton MD Hip X-Ray 04/21/17 0000 Signed Impressions: Service Date/Time: Friday, April 21, 2017 11:36 - CONCLUSION: Fluoroscopic images during placement of intramedullary siomara left femur. Benja Ramsey MD Objective Remarks GENERAL: Elderly female who is laying in [facility] bed on mechanical ventilation SKIN: Warm and dry, adequately perfused. HEAD: Atraumatic. Normocephalic. mucous membranes moist. NECK: 8.[address] Trachea midline. No JVD. CARDIOVASCULAR: Regular rate and rhythm, sinus on the monitor. RESPIRATORY: unlabored. no accessory muscle use. trach collar. GASTROINTESTINAL: Abdomen soft, non-tender, nondistended. PEG in place with tube feeds running, site benign appearing. MUSCULOSKELETAL: Extremities without clubbing, cyanosis, or edema. No obvious deformities. NEUROLOGICAL: Eyes open spontaneously, does not appear to track. L gaze preference. R hemiparesis. Localizes with LUE. Very slight withdrawal of LLE to noxious stimuli. Not following commands at this time A/P Assessment and Plan Neuro/Psych: Left MCA CVA - 5.5 mm of [id number] subfalcine herniation, diagnosed 04/24. Persistent right-sided hemiparesis. Prior History of stroke Continue Aspirin 325 mg by tube daily. Stroke occurred 04/24/17. Patient was not a candidate for thrombolysis per discussion with neurology and radiology at that time. Repeat head CT 05/15 showed slight improvement in the midline shift now 5.5 mm and mass effect Neurosurgery consulted 04/30- Dr. López, recommended conservative management, now signed off. Neurology Dr. Malave has followed previously, signed off. Cardiovascular: Hypertension Norvasc 10 mg po daily, Cardura 1 mg peg daily, metoprolol 12.5 peg bid, hydralazine 10 mg per per peg q8 hours. clonidine prn SBP >160 Echo showed EF 25-30%, Grade I diastolic disfunction Pulmonary: Chronic Tracheostomy Now recurrent Acute hypoxemic respiratory failure Acute hypoxic respiratory failure - aspiration possible HCAP - previous episode resolved. Large left pneumothorax status post #10 Lao chest tube 05/07 - resolved.Chest tube d/c'd 05/12/17 R pleural effusion - Continue with vent support keep sat >92% Ipratropium/albuterol aerosols every 6 hours with albuterol aerosols every 2 hours Pulm toilet, trach care SBT daily as gato Pulm is following GI/liver: Elevated transaminases, resolved Severe protein calorie malnutrition Small bowel ileus- resolved Hepatitis C antibody positive with negative genotype/viral load Hepatic steatosis Currently on PEG tube feeding with Glucerna 1.5 goal 45 cc an hour. KUB abdomen 10/10: No dilated bowel loops Beneprotein tid. Lansoprazole 30 mg daily for GI regimen Endocrine: Diabetes mellitus SSI high scale-dose every 6 hours , Levemir 7u Q12 /Renal/FEN: Monitor renal function. I/O's, electrolytes replacement as needed Heme: Chronic Rivaroxaban use prior to admission Leukocytosis Normocytic anemia Follow CBC and coags. ID: MDR Pseudomonas aeruginosa and pneumonia (HCAP) MSSA bacteremia - resolved. Serratia/staph aureus pneumonia - resolved. C glabrata UTI - resolved. Citrobacter UTI - resolved. Serratia/MSSA sputum VAP resolved Current relevant cultures: 09/25/17 -sputum culture - Pseudomonas aeruginosa, multidrug resistant ( including Zerbaxa and Avycaz resistance). On Colistin nebs started 09/30 Per ID, Dr. Ranjan Saleh Prior cultures: Urine culture 04/26/17 sofie glabrata Blood culture 04/29/17 1 out of 4 bottles staph aureus Sputum culture 04/30/17 MSSA and Serratia. urine 05/07-> Serratia, treated. Urine 05/25: Citrobacter MSK: Left Intertroch Hip Fx s/p IMN 04/21/17. Vitamin D deficiency Sacral decubitus ulcer, Previously stage III, healing. Continue calcium vitamin D 250/125 one tablet 3x a day and cholecalciferol 5000 units daily. PT/OT evaluate and treat Maxisorb every 3 days/dressing changes every 3 days per wound care Continue Beneprotein one packet 3x a day Prophylaxis: SCDs. Heparin 5000 subcut q8 hours. GI - lansoprazole 30 mg by PEG tube daily ACCESS: PIV. Level 2 Kristel Durant MD Oct 13, 2017 11:22
[2017-10-13 11:35] LABS: BICARBONATE 30.8 MEQ/L (21.0-32.0); CALCIUM 9.3 MG/DL (8.5-10.1); CREATININE 0.58 MG/DL (0.50-1.00); MAGNESIUM 2.5 MG/DL (1.5-2.5); PHOSPHORUS 3.3 MG/DL (2.5-4.9)
[2017-10-13] MEDS: INSULIN DETEMIR 100 UNITS/ML VIAL SQ SCH ×2 (12:00)
--- NOTE | 2017-10-13 18:43 | HHI.PR ---
Subjective Remarks 76 YO Frail female with RF,Trach,CVA no fever Did't tolerate CPAP No Fever Opens eyes Objective Vital Signs Vital Signs Date Time Temp Pulse Resp B/P (MAP) Pulse Ox O2 Delivery O2 Flow Rate FiO2 10/13/17 16:25 95 30 10/13/17 16:00 30 10/13/17 16:00 98.7 72 16 137/74 (95) 99 10/13/17 14:45 100 30 10/13/17 12:00 30 10/13/17 12:00 98.5 54 16 117/56 (76) 99 10/13/17 08:30 30 10/13/17 08:12 30 10/13/17 08:12 99 30 10/13/17 08:00 30 10/13/17 08:00 97.2 68 19 149/75 (99) 99 10/13/17 08:00 68 10/13/17 07:44 100 30 10/13/17 04:00 98.8 57 19 144/73 (96) 99 10/13/17 04:00 30 10/13/17 01:10 100 40 10/13/17 00:00 30 10/13/17 00:00 98.6 54 20 148/74 (98) 99 10/12/17 22:30 99 30 10/12/17 20:00 30 10/12/17 20:00 69 10/12/17 20:00 100.7 69 24 139/77 (97) 99 I/O 10/12/17 10/12/17 10/12/17 10/13/17 10/13/17 10/13/17 07:00 15:00 23:00 07:00 15:00 23:00 Intake Total 868 ml 971 ml 694 ml 695 ml Output Total 100 ml 850 ml 500 ml 300 ml Balance 768 ml 121 ml 194 ml 395 ml Tube Feeding 568 ml 671 ml 494 ml 495 ml Other 300 ml 300 ml 200 ml 200 ml Output Urine Total 650 ml 400 ml 200 ml Stool Total 100 ml 200 ml 100 ml 100 ml # Voids 3 2 3 Result Diagram: 10/13/17 1045 10/13/17 1045 Objective Remarks GENERAL: Elderly female,NAD SKIN: Warm and dry. HEAD: Normocephalic. EYES: No scleral icterus. No injection or drainage. NECK: Supple, trachea midline. No JVD or lymphadenopathy. CARDIOVASCULAR: Regular rate and rhythm without murmurs, gallops, or rubs. RESPIRATORY: Breath sounds equal bilaterally. No accessory muscle use. GASTROINTESTINAL: Abdomen soft, non-tender, nondistended. MUSCULOSKELETAL: No cyanosis, or edema. BACK: Nontender without obvious deformity. No CVA tenderness. A/P Assessment and Plan RF,S/P Trach CVA Pneumonia Pleural effusion Pseudomonas Tracheobronchitis, Hyperkalemia Hypoxia PLAN: Vent support Aerosol nebs Supplement 02 TF Abx per ID [facility] RN at [place],Chris Hester MD Oct 13, 2017 18:43
[2017-10-14] VITALS (12 sets, daily range): BP systolic 110–141; BP diastolic 58–74; PULSE 63–71; RESP 16–20; TEMP 97.6–98.6; O2SAT 91–100
[2017-10-14] MEDS: hydrALAZINE HCL 10 MG TAB PEG SCH ×3 (05:35→22:11)
[2017-10-14] MEDS: HEPARIN SODIUM - SQ 10,000 UNITS/ML VIAL SQ SCH ×3 (05:35→22:11)
[2017-10-14] MEDS: ARTIFICIAL TEARS OPTH SOLN 15 ML BTL EACH EYE SCH ×3 (05:35→22:13)
[2017-10-14] MEDS: INSULIN NovoLIN REGULAR SUPPLEMENTAL SCALE SQ SCH ×4 (06:00→17:53)
[2017-10-14] MEDS: RESP: COLISTIN 150 MG VIAL NEB SCH ×2 (07:27→16:19)
[2017-10-14] MEDS: SODIUM CHLORIDE 0.9% FLUSH 5 ML FLUSH IV FLUSH SCH ×2 (09:00→21:00)
--- NOTE | 2017-10-14 09:00 | HHI.CCPN ---
Subjective Remarks/Hospital Course 04/24: 76-year-old female with a medical history significant for prior stroke, diabetes mellitus who was admitted with DKA and a hip fracture for which she underwent ORIF on 04/21. Patient developed altered mental status and was last noted to be okay around 5:30 AM. Subsequently there was a change in her mental status and she was noted to not be moving her right side for which stroke alert was called. Head CT showed large left MCA territory ischemic infarct with edema. Patient was transferred to the ICU by family medicine service in the critical care consult was requested. I evaluated the patient following arrival to the ICU. At that time she was laying in bed with her eyes open however not following commands and had a dense right hemiplegia. Patient was also evaluated by Dr. Malave from neurology. [facility] further discussed current event with patient's daughter following her arrival to the ICU. Per the daughter patient has been living with her since her stroke in 2014 and does ambulate however has been having problems with memory and incontinence as well as gait difficulties. She does not feel patient would want intubation or tracheostomy or PEG tube. 04/25: Patient remains encephalopathic, awake though not following commands consistently. Dense right hemiplegia persists. Appears to be awake enough to protect airway currently. Patient's daughter rescinded DNR and made a full code last evening. 04/26: Remains encephalopathic, not following commands. On Dobbhoff for tube feeds at 30 cc per hour. Had urinary retention and drained 2 L of urine after placing Moser catheter today. CT head done this morning with large left MCA territory infarct with left to right midline shift and significant cerebral edema. Hyperglycemia noted. Patient given mannitol earlier for increasing cerebral edema. 04/27: Remains encephalopathic, not following commands. On Dobbhoff tube feeds at 30 cc per hour. When into A. fib with RVR last night which responded with Lopressor 5 mg IV 1 dose. 04/28: Remains encephalopathic, arousable, not following commands. Moves left upper extremity spontaneously. Tolerating Dobbhoff tube feeds. Remains on nasal cannula. 04/29: Encephalopathic, eyes be arousable, moves left upper extremity spontaneously and occasionally opens eyes. Dense right hemiplegia and aphasia persists. On nasal cannula. Dobbhoff tube feeds being advanced. Patient was transfused 1 unit PRBCs yesterday. Urine culture with yeast from yesterday for which fluconazole being started. Had brief run of A. fib with RVR which improved with Lopressor IV, currently in sinus rhythm. 04/30: Worsening hypoxemic respiratory failure, currently on partial nonrebreather. Remains lethargic. WBC count increased from 14.6 today 20.7. Chest x-ray shows bilateral worsening infiltrates and small pleural effusions. Sodium 154, weight up by 8 KG. Albumin 1 mg Bumex 1. Also one dose of albumin. Remains in sinus tachycardia. Tmax 101.3 05/01: Patient was intubated yesterday for lack of airway protection, and severe hypoxemic respiratory failure from aspiration pneumonia involving multiple lobes. Patient is on the vent lethargic, no spontaneous eye opening. Chest x- ray remains unchanged. Remains intermittently febrile Tmax 101.3. WBC count improving 05/02: Remains critically ill with no improvement in mental status. Spiking fever of 101.7. Blood culture and sputum culture with staph aureus sputum also growing GNR, WBC count 22,000 now indicating worsening sepsis. Daughter still requesting aggressive care. Palliative care is following 05/03: S/P large area dominant hemisphere CVA. No neurological improvement. Now with pneumonia (infiltrate, fever, leukocytosis) and appropriate abx coverage. She will have a hard time surviving the hip fx, CVA, and pneumonia. Palliative Care needs to be a mainstay of our plan. 05/04: No improvement in neuro status. Sputum C&S allows us to narrow abx coverage to levaquin alone. Lungs remain quite congested. Enteral nutrition tolerated. 05/05: No improvement in neuro status. Moves left arm spontaneously. Flaccid right side. Unresponsive. Persistent mild hypoglycemia - will cut Levemir 50%. Abdomen more distended, check KUB. 05/06: CT head with massive left MCA infarction and > 1 cm shift in right handed woman. She opens eyes, does not track. 05/07: Patient open eyes. Attempts to respond. Uzbek speaking. Tolerating tube feeds. Positive bowel movement. Volume overloaded. 05/08: Tmax 99.4. Potassium being replaced. Ultrasound gallbladder currently pending. Transaminases are trending downward. Gently diurese. 05/09: Alk phos decreasing. Remains with good urine output. Neurological status not improving. 05/10: Fixed neuro deficit unchanged. Profound CVA. 05/11: Appears to track with eyes today. No improvement in motor function. Remains very edematous, diuretics doubled. 05/12: Continued thick secretions. Afebrile, leukocytosis resolved. 05/13: CT head with completed left MCA stroke, persistent edema and 5 mm shift away. Does not last long on SBTs - major decision now is trach/PEG. 05/14: Daughter has decided to proceed with trach and PEG. I have been pessimistic with her about chances for a meaningful recovery. 05/15: Plan for trach today. No change in neuro status. Still ventilator dependent. 05/16: Trach completed. Await PEG and disposition. 05/17: PEG placed 05/16. Start TFs today after nutrition consult. Work to place patient. 05/18: No improvement. Does open eyes, no focus or tracking. Completed large dominant (left) hemisphere CVA in right handed woman with severe deficit. Medicaid pending status, [facility] is following. 05/19: no improvements in neuro exam. ready for LTAC. will d/c moser and rectal tubes. 05/20: no changes or improvements. very difficult placement due to patient not [place] citizen. 05/21: no improvements. resting on vent overnight due to distress. 05/22: no neurologic changes. no improvements. attempted T-piece which failed after 10 minutes. 05/23: no improvements. poor prognosis. poor neuro exam. still failing weaning trials. 05/24: no improvements or changes. still failing t-piece trials. 05/25: No acute changes of improvement overnight. Failed CPAP due to apnea, tried again currently tolerating. Neurological exam unchanged. 05/26: No improvement in neurological function. 05/27: Patient has required Moser catheter because of breakdown of skin on upper thighs and groin. Urine has become infected, will treat. 05/28: Some drainage from around trach (placed 2 weeks ago). Will change out trach tube and inspect neck wound. I&O straight cath q6h order entered 05/17. 05/29: No improvement, remains obtunded. Failed CPAP trials yesterday and again today due to apnea. Moser placed due to persistent urinary retention 05/30: Obtunded, unresponsive. Failed SBTs, remains ventilator dependent. 05/31: Patient continues to fail SBT failed yesterday due to apnea. Neuro exam remains unchanged. 06/01: No acute changes overnight, 06/02: no changes. ekg done overnight for ? EKG changes seen on telemetry which were not visualized on EKG. 06/03: no improvements or changes. had long conversation with daughter yesterday. only facility which would accept patient is in [place] and daughter is refusing to allow patient to go there because it is "too far away." Daughter continues to push for aggressive care despite no improvements, and resistant to Hospice. Patient does not need acute inpatient therapy but lacks funding for appropriate disposition. 06/04: No acute events overnight, failed SBT due to apnea. 06/05: No acute events, continues to fail spontaneous breathing trials. Unable to wean 06/06 Currently tolerating CPAP. Will attempt TP today up to 4 hours. No acute events overnight 06/07: Tolerating trach collar/T-piece. Transfer soon. 06/08: Awaiting transfer. 06/09: Remains ventilator dependent. No improvement in neurological function. 06/10: No improvement. Daughter is not attending preplanned meetings to discuss disposition 06/12: Afebrile. Neurologically stable and unchanged. Noted sodium 135. Adding sodium chloride tablets 1 today. Not on free water.. Tolerating tube feeds at goal 45 cc an hour. 06/13: No improvement in neurological function. 06/14: No improvement. Fluid balance correct. Gas exchange acceptable. 06/15: No improvement. Obtunded and unresponsive. 06/16: no improvements in mental status. KUB overnight with dilated small bowel loops. given methylnaltrexone and erythromycin. today abdomen is soft and tolerating tube feeds. 06/17: tolerated t-piece x 6 hours yesterday. rested on cpap overnight. no changes in encephalopathy. 06/18: Currently on ventilator overnight. Multiple bowel movements. Thick yellow secretions noted in ventilator circuit. Opens eyes. 06/19: Afebrile. Tolerating stretcher chair yesterday on PSV. Tolerating tube feeding. Neurologically unchanged. 06/20: Afebrile. Resting in bed in no acute distress in sitting position. Currently on ventilator set sitting. Tolerated stretcher chair/PSV trial 6 hours yesterday. Neurologically unchanged. 06/21: Tmax 100.8. Patient with copious thick yellow secretions. Tolerating tube feeds. Positive bowel movement. Lasted only 1 hour PSV yesterday 06/22: Tmax 99.9. Continues to have thick secretions. Tolerating tube feeding. Positive BM. 06/23: Afebrile. Continues to have thick tracheal secretions from tracheostomy site. Tolerating tube feeding. 3 bowels movements. Opens eyes to stimulation. Stares at you but does not follow commands. 06/24: Remains encephalopathic, on mechanical ventilation via tracheostomy. Tolerating PEG feeds 06/25: Remains encephalopathic on mechanical ventilation. Tolerated C Pap +5 with pressure support +10 all day yesterday. Tolerating PEG feeds. 06/26: No improvement.Vent dependent still. 06/27: Remains encephalopathic, on mech vent via trach. Daily CPAP trials. 06/28: Unable to wean from ventilator. 06/29: Neurologically unchanged. Remains on mechanical ventilation. Daily C Pap trials ongoing. 06/30: Remains encephalopathic. On C Pap overnight. Tolerating tube feeds. 07/01: No change in neurologic status. On mechanical ventilation via tracheostomy. Tolerating tube feeds. 07/02: Remains encephalopathic. No change in neurologic status. On mechanical ventilation via tracheostomy. Daily C Pap trials ongoing. 07/03: Occasional spontaneous eye opening however remains encephalopathic. On mechanical ventilation via tracheostomy. 07/04: Tmax 99.2. Multiple bowel movements overnight. Tolerating tube feeds. On T piece trial at 5 L since noon yesterday. Otherwise neurologically unchanged. Daughter encouraged by movement of left leg. 07/05: Currently resting in bed on T piece 36 hours. Tolerates chair. No changes neurologically. Positive BM's. Tolerating her tube feeding. 07/06: Continue T-piece trials, if tolerated consider transfer to floor. 07/07: Extended T-piece trial. Plan transfer to floor. 07/09: Patient is experiencing apnea episodes and had to be placed back on higher FiO2.. Hold transfer. 07/10: X-ray left hip shows good anatomic alignment. Still requiring elevated FiO2. 07/11: Prealbumin 20, nutritional support is adequate and status is stable. No neurological improvement. 07/12: No improvement in neurological function. Continued acceptable respiratory effort. 07/13: No change. Subjective 10/03/17 Dr. Rizo notified car seat upholsterer that patient would be transferring to ICU. Patient is known to [facility] service. She was originally admitted 04/20/17 after a fall with hip fracture resulting in ORIF 04/21. Postoperatively, she developed large R MCA stroke with midline shift. Her neurologic condition remained poor and she underwent trach 05/15/17 and PEG 05/16/17. She was eventually transitioned to Tpiece and transferred to floor. She has suffered from multiple infectious complications due to her persistent bedfast and trach dependent state. 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 She has been on trach collar with worsening hypoxemia therefore she is transferred to [facility]. CXR from yesterday demonstrates bilateral pulmonary infiltrates. She has also had hyperkalemia today up to 6.7 which has been treated with kayexalate, down to 6. 2/: improvement in air space disease with diuresis and bronch yesterday. no overall improvements in chronic poor prognosis. unlikely to survive this hospital stay. daughter has poor insight into the gravity of her mother's medical condition. she will not recover meaningfully. 10/05: continuing to clinically improve from a respiratory standpoint. no improvements in overall poor function. off vent on t-piece today. can likely transition out of ICU tomorrow. 10/06 No events overnight. Remains on ventilator via trach. Afebrile. 10/07 No events overnight. Afebrile. 10/08 Patient is on ventilator via trach. afebrile. 10/09 No events overnight. Tolerating tube feeds. Afebrile. 10/10 Patient is on ventilators via trach. 10/11: Nursing reported patient intermittently follow commands today. BUN slightly elevated. Patient tolerating tube feeding 10/12: The patient tolerated CPAP for approximately 6 hours yesterday. No acute changes overnight. No neurological change in status. 10/13 No events overnight. Afebrile. 10/14 Patient remains on ventilator via trach. Afebrile. Didn't tolerate CPAP trials earlier today. Objective Vital Signs Date Time Temp Pulse Resp B/P (MAP) Pulse Ox O2 Delivery O2 Flow Rate FiO2 10/14/17 07:27 30 10/14/17 07:27 100 10/14/17 04:00 98.2 68 16 110/58 (75) Intake and Output 10/14/17 10/14/17 10/15/17 08:00 16:00 00:00 Intake Total 799 ml Output Total 650 ml Balance 149 ml Result Diagram: 10/13/17 1045 10/13/17 1045 Other Results Laboratory Tests Test 10/13/17 10:45 White Blood Count 11.3 TH/MM3 Red Blood Count 2.88 MIL/MM3 Hemoglobin 9.5 GM/DL Hematocrit 28.0 % Mean Corpuscular Volume 97.3 FL Mean Corpuscular Hemoglobin 33.0 PG Mean Corpuscular Hemoglobin Concent 33.9 % Red Cell Distribution Width 15.5 % Platelet Count 402 TH/MM3 Mean Platelet Volume 8.7 FL Blood Urea Nitrogen 63 MG/DL Creatinine 0.58 MG/DL Random Glucose 139 MG/DL Calcium Level 9.3 MG/DL Phosphorus Level 3.3 MG/DL Magnesium Level 2.5 MG/DL Sodium Level 143 MEQ/L Potassium Level 4.7 MEQ/L Chloride Level 108 MEQ/L Carbon Dioxide Level 30.8 MEQ/L Anion Gap 4 MEQ/L Estimat Glomerular Filtration Rate 101 ML/MIN Imaging Last Impressions Chest X-Ray 10/11/17 0000 Signed Impressions: Service Date/Time: Wednesday, October 11, 2017 01:43 - CONCLUSION: 1. Tracheostomy in good position. Minimal basilar atelectasis or scarring. No effusion. Jaime Velasquez MD Abdomen X-Ray 10/10/17 0000 Signed Impressions: Service Date/Time: Tuesday, October 10, 2017 11:35 - CONCLUSION: No dilated bowel loops. Benja Ramsey MD Thoracentesis 08/05/17 1535 Signed Impressions: Service Date/Time: Saturday, August 05, 2017 16:08 - CONCLUSION: Uncomplicated CT-guided thoracentesis. Sage Adler MD Chest Ultrasound 08/02/17 0000 Signed Impressions: Service Date/Time: Tuesday, August 01, 2017 22:06 - CONCLUSION: 1. Moderate right pleural effusion, as above. Alejo De La Vega MD Hip and Pelvis X-Ray 07/09/17 0000 Signed Impressions: Service Date/Time: Sunday, July 09, 2017 14:04 - CONCLUSION: Anatomic alignment. Ricardo Middleton MD FACR Liver Ultrasound 06/19/17 0000 Signed Impressions: Service Date/Time: June 13:20 - CONCLUSION: 1. Mildly increased echotexture of the liver characteristic of hepatic steatosis. 2. Gallbladder sludge. Obdulio Sam MD Head CT 05/15/17 0000 Signed Impressions: Service Date/Time: May 19:59 - CONCLUSION: 1. 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 2. No bleed or new/acute infarct. Obdulio Simms MD Gall Bladder Ultrasound 05/08/17 0000 Signed Impressions: Service Date/Time: May 08:23 - CONCLUSION: Focally unremarkable appearance of the gallbladder Obdulio Chun MD Abdomen/Pelvis CT 05/07/17 0000 Signed Impressions: Service Date/Time: Sunday, May 07, 2017 13:23 - CONCLUSION: 1. Large left pneumothorax. 2. Bilateral lower lobe consolidation and bilateral moderate size pleural effusions. 3. Significant soft tissue thickening of the right lateral chest wall and left gluteus muscle. 4. Mild ascites. The findings were called to Dr. Carney. Deangelo Zamora MD Chest CT 04/30/17 0000 Signed Impressions: Service Date/Time: Sunday, April 30, 2017 09:20 - CONCLUSION: 1. Bilateral pulmonary infiltrates more pronounced within the lower lobes with tiny bilateral pleural effusions. Material seen filling the lower lobe bronchi bilaterally either related to purulent material or perhaps mucus plugging. Deangelo Wren Jr., MD Carotid Artery Ultrasound 04/24/17 0000 Signed Impressions: Service Date/Time: April 09:45 - CONCLUSION: 1. No hemodynamically significant carotid artery stenosis. Arnie Middleton MD Hip X-Ray 04/21/17 0000 Signed Impressions: Service Date/Time: Friday, April 21, 2017 11:36 - CONCLUSION: Fluoroscopic images during placement of intramedullary siomara left femur. Benja Ramsey MD Objective Remarks GENERAL: Elderly female who is laying in [facility] bed on mechanical ventilation SKIN: Warm and dry, adequately perfused. HEAD: Atraumatic. Normocephalic. mucous membranes moist. NECK: 8.[address] Trachea midline. No JVD. CARDIOVASCULAR: Regular rate and rhythm, sinus on the monitor. RESPIRATORY: unlabored. no accessory muscle use. trach collar. GASTROINTESTINAL: Abdomen soft, non-tender, nondistended. PEG in place with tube feeds running, site benign appearing. MUSCULOSKELETAL: Extremities without clubbing, cyanosis, or edema. No obvious deformities. NEUROLOGICAL: Eyes open spontaneously, does not appear to track. L gaze preference. R hemiparesis. Localizes with LUE. Very slight withdrawal of LLE to noxious stimuli. Not following commands at this time A/P Assessment and Plan Neuro/Psych: Left MCA CVA - 5.5 mm of nwik-co-dadcd subfalcine herniation, diagnosed 04/24. Persistent right-sided hemiparesis. Prior History of stroke Continue Aspirin 325 mg by tube daily. Stroke occurred 04/24/17. Patient was not a candidate for thrombolysis per discussion with neurology and radiology at that time. Repeat head CT 05/15 showed slight improvement in the midline shift now 5.5 mm and mass effect Neurosurgery consulted 04/30- Dr. López, recommended conservative management, now signed off. Neurology Dr. Malave has followed previously, signed off. Cardiovascular: Hypertension Norvasc 10 mg po daily, Cardura 1 mg peg daily, metoprolol 12.5 peg bid, hydralazine 10 mg per per peg q8 hours. clonidine prn SBP >160 Echo showed EF 25-30%, Grade I diastolic disfunction Pulmonary: Chronic Tracheostomy Now recurrent Acute hypoxemic respiratory failure Acute hypoxic respiratory failure - aspiration possible HCAP - previous episode resolved. Large left pneumothorax status post #10 Persian chest tube 05/07 - resolved.Chest tube d/c'd 05/12/17 R pleural effusion - Continue with vent support keep sat >92% Ipratropium/albuterol aerosols every 6 hours with albuterol aerosols every 2 hours Pulm toilet, trach care SBT daily as gato Pulm is following GI/liver: Elevated transaminases, resolved Severe protein calorie malnutrition Small bowel ileus- resolved Hepatitis C antibody positive with negative genotype/viral load Hepatic steatosis Currently on PEG tube feeding with Glucerna 1.5 goal 45 cc an hour. KUB abdomen 10/10: No dilated bowel loops Beneprotein tid. Lansoprazole 30 mg daily for GI regimen Endocrine: Diabetes mellitus SSI high scale-dose every 6 hours , Levemir 7u Q12 /Renal/FEN: Monitor renal function. I/O's, electrolytes replacement as needed Heme: Chronic Rivaroxaban use prior to admission Leukocytosis Normocytic anemia Follow CBC and coags. ID: MDR Pseudomonas aeruginosa and pneumonia (HCAP) MSSA bacteremia - resolved. Serratia/staph aureus pneumonia - resolved. C glabrata UTI - resolved. Citrobacter UTI - resolved. Serratia/MSSA sputum VAP resolved Current relevant cultures: 09/25/17 -sputum culture - Pseudomonas aeruginosa, multidrug resistant ( including Zerbaxa and Avycaz resistance). On Colistin nebs started 09/30 Per ID, Dr. Ranjan Saleh Prior cultures: Urine culture 04/26/17 sofie glabrata Blood culture 04/29/17 1 out of 4 bottles staph aureus Sputum culture 04/30/17 MSSA and Serratia. urine 05/07-> Serratia, treated. Urine 05/25: Citrobacter MSK: Left Intertroch Hip Fx s/p IMN 04/21/17. Vitamin D deficiency Sacral decubitus ulcer, Previously stage III, healing. Continue calcium vitamin D 250/125 one tablet 3x a day and cholecalciferol 5000 units daily. PT/OT evaluate and treat Maxisorb every 3 days/dressing changes every 3 days per wound care Continue Beneprotein one packet 3x a day Prophylaxis: SCDs. Heparin 5000 subcut q8 hours. GI - lansoprazole 30 mg by PEG tube daily ACCESS: PIV. Follow up on labs Level 2 Kristel Durant MD Oct 14, 2017 09:00
[2017-10-14] MEDS: LANSOPRAZOLE SOLUTAB 30 MG TAB NG SCH (09:04)
[2017-10-14] MEDS: CALCIUM/VITAMIN D 250 MG/125 U TAB PEG SCH ×3 (09:04→17:53)
[2017-10-14] MEDS: LACTOBACILLUS ACIDOPHILUS TAB PEG SCH ×2 (09:04→22:12)
[2017-10-14] MEDS: CHOLECALCIFEROL (VIT D3) 5000 UNIT CAP PEG SCH (09:04)
[2017-10-14] MEDS: CHLORHEXIDINE 0.12% (ORAL KIT) 15 ML CUP MT SCH ×2 (09:05→22:13)
[2017-10-14] MEDS: DOXAZOSIN MESYLATE 1 MG TAB PEG SCH (09:05)
[2017-10-14] MEDS: ASPIRIN 325 MG TAB DOBHOFF SCH (09:05)
[2017-10-14] MEDS: METOPROLOL TARTRATE 25 MG TAB PEG SCH ×2 (09:06→22:11)
[2017-10-14 10:36] LABS: AUTOMATED NEUTROPHIL # 10.7 TH/MM3 (1.8-7.7); BASOPHIL # 0.1 TH/MM3 (0-0.2); BASOPHIL % 0.9 % (0.0-2.0); EOSINOPHIL # 0.5 TH/MM3 (0-0.4); EOSINOPHIL % 3.7 % (0.0-4.0); HEMATOCRIT 29.8 % (35.0-46.0); HEMOGLOBIN 9.9 GM/DL (11.6-15.3); LYMPH % 16.2 % (9.0-44.0); LYMPHOCYTE # 2.4 TH/MM3 (1.0-4.8); MEAN CORPUSCULAR HEMOGLOBIN 32.6 PG (27.0-34.0); MEAN CORPUSCULAR HGB CONC 33.3 % (32.0-36.0); MEAN PLATELET VOLUME 9.4 FL (7.0-11.0); MONO % 6.2 % (0.0-8.0); MONOCYTE # 0.9 TH/MM3 (0-0.9); PLATELET COUNT 404 TH/MM3 (150-450); RED BLOOD COUNT 3.04 MIL/MM3 (4.00-5.30); RED CELL DISTRIBUTION WIDTH 15.7 % (11.6-17.2); WHITE BLOOD COUNT 14.7 TH/MM3 (4.0-11.0)
[2017-10-14 10:55] LABS: CALCIUM 9.7 MG/DL (8.5-10.1); CREATININE 0.71 MG/DL (0.50-1.00)
[2017-10-14 11:20] LABS: BANDS 12 % (0-6); LYMPHOCYTES 12 % (9-44); METAMYELOCYTES 3 % (0-1); MONOCYTES 10 % (0-8); MYELOCYTES 4 % (0-0); POLYS (SEG NEUTROPHILS) 54 % (16-70); PROMYELOCYTES 2 % (0-0)
[2017-10-14] MEDS: INSULIN DETEMIR 100 UNITS/ML VIAL SQ SCH ×2 (12:00)
--- NOTE | 2017-10-14 18:23 | HHI.PR ---
Subjective Remarks 76 YO Frail female with RF,Trach,CVA no fever Did't tolerate CPAP No Fever Awake, looks around Squeezes with left hand, not on command Objective Vital Signs Vital Signs Date Time Temp Pulse Resp B/P (MAP) Pulse Ox O2 Delivery O2 Flow Rate FiO2 10/14/17 16:19 98 30 10/14/17 16:00 30 10/14/17 16:00 98.6 68 18 135/70 (91) 98 10/14/17 12:00 98.6 63 16 138/67 (90) 98 10/14/17 12:00 30 10/14/17 10:39 100 30 10/14/17 08:00 30 10/14/17 08:00 97.6 69 20 141/74 (96) 91 10/14/17 08:00 69 10/14/17 07:27 30 10/14/17 07:27 100 30 10/14/17 04:52 100 30 10/14/17 04:00 30 10/14/17 04:00 98.2 68 16 110/58 (75) 98 10/14/17 00:00 100 30 10/14/17 00:00 98.0 71 16 127/65 (85) 99 10/14/17 00:00 30 10/14/17 00:00 30 10/13/17 20:28 99 30 10/13/17 20:00 98.1 69 16 111/63 (79) 98 10/13/17 20:00 70 10/13/17 20:00 30 I/O 10/13/17 10/13/17 10/13/17 10/14/17 10/14/17 10/14/17 07:00 15:00 23:00 07:00 15:00 23:00 Intake Total 694 ml 695 ml 799 ml Output Total 500 ml 300 ml 650 ml 600 ml Balance 194 ml 395 ml 149 ml -600 ml Tube Feeding 494 ml 495 ml 539 ml Other 200 ml 200 ml 260 ml Output Urine Total 400 ml 200 ml 600 ml 600 ml Stool Total 100 ml 100 ml 50 ml # Voids 3 1 Result Diagram: 10/14/1793210/14/17932 Objective Remarks GENERAL: Elderly female,NAD SKIN: Warm and dry. HEAD: Normocephalic. EYES: No scleral icterus. No injection or drainage. NECK: Supple, trachea midline. No JVD or lymphadenopathy. CARDIOVASCULAR: Regular rate and rhythm without murmurs, gallops, or rubs. RESPIRATORY: Breath sounds equal bilaterally. No accessory muscle use. GASTROINTESTINAL: Abdomen soft, non-tender, nondistended. MUSCULOSKELETAL: No cyanosis, or edema. BACK: Nontender without obvious deformity. No CVA tenderness. A/P Assessment and Plan RF,S/P Trach CVA Pneumonia Pleural effusion Pseudomonas Tracheobronchitis, Hyperkalemia Hypoxia PLAN: Vent support Aerosol nebs Supplement 02 TF Abx per ID [facility] RN at [facility],Chris Hester MD Oct 14, 2017 18:23
[2017-10-15] VITALS (13 sets, daily range): BP systolic 114–147; BP diastolic 54–76; PULSE 55–69; RESP 12–24; TEMP 99–99.6; O2SAT 95–100
[2017-10-15] MEDS: RESP: COLISTIN 150 MG VIAL NEB SCH ×4 (00:28→23:55)
[2017-10-15] MEDS: INSULIN DETEMIR 100 UNITS/ML VIAL SQ SCH ×2 (01:03→12:00)
[2017-10-15] MEDS: HEPARIN SODIUM - SQ 10,000 UNITS/ML VIAL SQ SCH ×3 (06:42→21:41)
[2017-10-15] MEDS: hydrALAZINE HCL 10 MG TAB PEG SCH ×3 (06:42→21:00)
[2017-10-15] MEDS: INSULIN NovoLIN REGULAR SUPPLEMENTAL SCALE SQ SCH ×4 (06:42→17:15)
[2017-10-15] MEDS: ARTIFICIAL TEARS OPTH SOLN 15 ML BTL EACH EYE SCH ×3 (06:43→21:42)
[2017-10-15 08:15] LABS: AUTOMATED NEUTROPHIL # 11.6 TH/MM3 (1.8-7.7); BASOPHIL # 0.1 TH/MM3 (0-0.2); BASOPHIL % 0.7 % (0.0-2.0); EOSINOPHIL # 0.5 TH/MM3 (0-0.4); HEMATOCRIT 27.8 % (35.0-46.0); HEMOGLOBIN 9.3 GM/DL (11.6-15.3); LYMPH % 17.6 % (9.0-44.0); LYMPHOCYTE # 2.8 TH/MM3 (1.0-4.8); MEAN CELL VOLUME 97.3 FL (80.0-100.0); MEAN CORPUSCULAR HEMOGLOBIN 32.7 PG (27.0-34.0); MEAN CORPUSCULAR HGB CONC 33.6 % (32.0-36.0); MEAN PLATELET VOLUME 9.1 FL (7.0-11.0); MONO % 4.5 % (0.0-8.0); MONOCYTE # 0.7 TH/MM3 (0-0.9); NEUT % 74.2 % (16.0-70.0); PLATELET COUNT 386 TH/MM3 (150-450); RED BLOOD COUNT 2.85 MIL/MM3 (4.00-5.30); WHITE BLOOD COUNT 15.7 TH/MM3 (4.0-11.0)
[2017-10-15 08:32] LABS: BICARBONATE 28.2 MEQ/L (21.0-32.0); CALCIUM 9.6 MG/DL (8.5-10.1); CREATININE 0.77 MG/DL (0.50-1.00)
[2017-10-15] MEDS: CHOLECALCIFEROL (VIT D3) 5000 UNIT CAP PEG SCH (09:00)
[2017-10-15] MEDS: SODIUM CHLORIDE 0.9% FLUSH 5 ML FLUSH IV FLUSH SCH ×2 (09:00→21:01)
[2017-10-15 09:17] LABS: BANDS 14 % (0-6); LYMPHOCYTES 15 % (9-44); MONOCYTES 8 % (0-8); MYELOCYTES 6 % (0-0); NEUTROPHIL # MANUAL DIFF 11.9 TH/MM3 (1.8-7.7); POLYS (SEG NEUTROPHILS) 56 % (16-70); TOXIC GRANULATION 1+ (NORMAL)
[2017-10-15] MEDS: METOPROLOL TARTRATE 25 MG TAB PEG SCH ×2 (09:46→21:00)
[2017-10-15] MEDS: LANSOPRAZOLE SOLUTAB 30 MG TAB NG SCH (09:46)
[2017-10-15] MEDS: DOXAZOSIN MESYLATE 1 MG TAB PEG SCH (09:46)
[2017-10-15] MEDS: LACTOBACILLUS ACIDOPHILUS TAB PEG SCH ×2 (09:47→21:00)
[2017-10-15] MEDS: CALCIUM/VITAMIN D 250 MG/125 U TAB PEG SCH ×3 (09:47→17:15)
[2017-10-15] MEDS: ASPIRIN 325 MG TAB DOBHOFF SCH (09:47)
[2017-10-15] MEDS: CHLORHEXIDINE 0.12% (ORAL KIT) 15 ML CUP MT SCH ×2 (09:50→21:01)
--- NOTE | 2017-10-15 12:18 | RADRPT ---
EXAM DATE/TIME: 10/15/2017 11:45 [place] COMPARISON: CHEST SINGLE AP, October 11, 2017, 1:43. INDICATIONS : Shortness of breath. MEDICAL HISTORY : Stroke. Diabetes mellitus type II. SURGICAL HISTORY : Hysterectomy. Tracheostomy ENCOUNTER: Subsequent ACUITY: 2 days PAIN SCORE: Non-responsive. LOCATION: Bilateral chest FINDINGS: A single view of the chest demonstrates the lungs to be symmetrically aerated with atelectatic change s above the left hemidiaphragm. Not exclude a small left-sided effusion with some blunting of the cos tophrenic angle. Interstitial markings are somewhat prominent and indistinct representing some degree of vascular congestion or volume overload. Heart size is borderline prominent. Tracheostomy tube rem ains stable in position with the tip at the level of the clavicular heads.. CONCLUSION: 1. Heart size is borderline with mild interstitial prominence characteristic of some degree of vascul ar congestion or volume overload. No lanny failure. 2. Atelectatic changes above the left hemidiaphragm with possible small left-sided effusion. Ananda Oneill MD on October 15, 2017 at 12:12 Board Certified Radiologist. This report was verified electronically.
--- NOTE | 2017-10-15 13:12 | HHI.CCPN ---
Subjective Remarks/Hospital Course 04/24: 76-year-old female with a medical history significant for prior stroke, diabetes mellitus who was admitted with DKA and a hip fracture for which she underwent ORIF on 04/21. Patient developed altered mental status and was last noted to be okay around 5:30 AM. Subsequently there was a change in her mental status and she was noted to not be moving her right side for which stroke alert was called. Head CT showed large left MCA territory ischemic infarct with edema. Patient was transferred to the ICU by family medicine service in the critical care consult was requested. I evaluated the patient following arrival to the ICU. At that time she was laying in bed with her eyes open however not following commands and had a dense right hemiplegia. Patient was also evaluated by Dr. Malave from neurology. [facility] further discussed current event with patient's daughter following her arrival to the ICU. Per the daughter patient has been living with her since her stroke in 2014 and does ambulate however has been having problems with memory and incontinence as well as gait difficulties. She does not feel patient would want intubation or tracheostomy or PEG tube. 04/25: Patient remains encephalopathic, awake though not following commands consistently. Dense right hemiplegia persists. Appears to be awake enough to protect airway currently. Patient's daughter rescinded DNR and made a full code last evening. 04/26: Remains encephalopathic, not following commands. On Dobbhoff for tube feeds at 30 cc per hour. Had urinary retention and drained 2 L of urine after placing Moser catheter today. CT head done this morning with large left MCA territory infarct with left to right midline shift and significant cerebral edema. Hyperglycemia noted. Patient given mannitol earlier for increasing cerebral edema. 04/27: Remains encephalopathic, not following commands. On Dobbhoff tube feeds at 30 cc per hour. When into A. fib with RVR last night which responded with Lopressor 5 mg IV 1 dose. 04/28: Remains encephalopathic, arousable, not following commands. Moves left upper extremity spontaneously. Tolerating Dobbhoff tube feeds. Remains on nasal cannula. 04/29: Encephalopathic, eyes be arousable, moves left upper extremity spontaneously and occasionally opens eyes. Dense right hemiplegia and aphasia persists. On nasal cannula. Dobbhoff tube feeds being advanced. Patient was transfused 1 unit PRBCs yesterday. Urine culture with yeast from yesterday for which fluconazole being started. Had brief run of A. fib with RVR which improved with Lopressor IV, currently in sinus rhythm. 04/30: Worsening hypoxemic respiratory failure, currently on partial nonrebreather. Remains lethargic. WBC count increased from 14.6 today 20.7. Chest x-ray shows bilateral worsening infiltrates and small pleural effusions. Sodium 154, weight up by 8 KG. Albumin 1 mg Bumex 1. Also one dose of albumin. Remains in sinus tachycardia. Tmax 101.3 05/01: Patient was intubated yesterday for lack of airway protection, and severe hypoxemic respiratory failure from aspiration pneumonia involving multiple lobes. Patient is on the vent lethargic, no spontaneous eye opening. Chest x- ray remains unchanged. Remains intermittently febrile Tmax 101.3. WBC count improving 05/02: Remains critically ill with no improvement in mental status. Spiking fever of 101.7. Blood culture and sputum culture with staph aureus sputum also growing GNR, WBC count 22,000 now indicating worsening sepsis. Daughter still requesting aggressive care. Palliative care is following 05/03: S/P large area dominant hemisphere CVA. No neurological improvement. Now with pneumonia (infiltrate, fever, leukocytosis) and appropriate abx coverage. She will have a hard time surviving the hip fx, CVA, and pneumonia. Palliative Care needs to be a mainstay of our plan. 05/04: No improvement in neuro status. Sputum C&S allows us to narrow abx coverage to levaquin alone. Lungs remain quite congested. Enteral nutrition tolerated. 05/05: No improvement in neuro status. Moves left arm spontaneously. Flaccid right side. Unresponsive. Persistent mild hypoglycemia - will cut Levemir 50%. Abdomen more distended, check KUB. 05/06: CT head with massive left MCA infarction and > 1 cm shift in right handed woman. She opens eyes, does not track. 05/07: Patient open eyes. Attempts to respond. [place] Islander speaking. Tolerating tube feeds. Positive bowel movement. Volume overloaded. 05/08: Tmax 99.4. Potassium being replaced. Ultrasound gallbladder currently pending. Transaminases are trending downward. Gently diurese. 05/09: Alk phos decreasing. Remains with good urine output. Neurological status not improving. 05/10: Fixed neuro deficit unchanged. Profound CVA. 05/11: Appears to track with eyes today. No improvement in motor function. Remains very edematous, diuretics doubled. 05/12: Continued thick secretions. Afebrile, leukocytosis resolved. 05/13: CT head with completed left MCA stroke, persistent edema and 5 mm shift away. Does not last long on SBTs - major decision now is trach/PEG. 05/14: Daughter has decided to proceed with trach and PEG. I have been pessimistic with her about chances for a meaningful recovery. 05/15: Plan for trach today. No change in neuro status. Still ventilator dependent. 05/16: Trach completed. Await PEG and disposition. 05/17: PEG placed 05/16. Start TFs today after nutrition consult. Work to place patient. 05/18: No improvement. Does open eyes, no focus or tracking. Completed large dominant (left) hemisphere CVA in right handed woman with severe deficit. Medicaid pending status, [facility] is following. 05/19: no improvements in neuro exam. ready for LTAC. will d/c moser and rectal tubes. 05/20: no changes or improvements. very difficult placement due to patient not [place] citizen. 05/21: no improvements. resting on vent overnight due to distress. 05/22: no neurologic changes. no improvements. attempted T-piece which failed after 10 minutes. 05/23: no improvements. poor prognosis. poor neuro exam. still failing weaning trials. 05/24: no improvements or changes. still failing t-piece trials. 05/25: No acute changes of improvement overnight. Failed CPAP due to apnea, tried again currently tolerating. Neurological exam unchanged. 05/26: No improvement in neurological function. 05/27: Patient has required Moser catheter because of breakdown of skin on upper thighs and groin. Urine has become infected, will treat. 05/28: Some drainage from around trach (placed 2 weeks ago). Will change out trach tube and inspect neck wound. I&O straight cath q6h order entered 05/17. 05/29: No improvement, remains obtunded. Failed CPAP trials yesterday and again today due to apnea. Moser placed due to persistent urinary retention 05/30: Obtunded, unresponsive. Failed SBTs, remains ventilator dependent. 05/31: Patient continues to fail SBT failed yesterday due to apnea. Neuro exam remains unchanged. 06/01: No acute changes overnight, 06/02: no changes. ekg done overnight for ? EKG changes seen on telemetry which were not visualized on EKG. 06/03: no improvements or changes. had long conversation with daughter yesterday. only facility which would accept patient is in [place] and daughter is refusing to allow patient to go there because it is "too far away." Daughter continues to push for aggressive care despite no improvements, and resistant to Hospice. Patient does not need acute inpatient therapy but lacks funding for appropriate disposition. 06/04: No acute events overnight, failed SBT due to apnea. 06/05: No acute events, continues to fail spontaneous breathing trials. Unable to wean 06/06 Currently tolerating CPAP. Will attempt TP today up to 4 hours. No acute events overnight 06/07: Tolerating trach collar/T-piece. Transfer soon. 06/08: Awaiting transfer. 06/09: Remains ventilator dependent. No improvement in neurological function. 06/10: No improvement. Daughter is not attending preplanned meetings to discuss disposition 06/12: Afebrile. Neurologically stable and unchanged. Noted sodium 135. Adding sodium chloride tablets 1 today. Not on free water.. Tolerating tube feeds at goal 45 cc an hour. 06/13: No improvement in neurological function. 06/14: No improvement. Fluid balance correct. Gas exchange acceptable. 06/15: No improvement. Obtunded and unresponsive. 06/16: no improvements in mental status. KUB overnight with dilated small bowel loops. given methylnaltrexone and erythromycin. today abdomen is soft and tolerating tube feeds. 06/17: tolerated t-piece x 6 hours yesterday. rested on cpap overnight. no changes in encephalopathy. 06/18: Currently on ventilator overnight. Multiple bowel movements. Thick yellow secretions noted in ventilator circuit. Opens eyes. 06/19: Afebrile. Tolerating stretcher chair yesterday on PSV. Tolerating tube feeding. Neurologically unchanged. 06/20: Afebrile. Resting in bed in no acute distress in sitting position. Currently on ventilator set sitting. Tolerated stretcher chair/PSV trial 6 hours yesterday. Neurologically unchanged. 06/21: Tmax 100.8. Patient with copious thick yellow secretions. Tolerating tube feeds. Positive bowel movement. Lasted only 1 hour PSV yesterday 06/22: Tmax 99.9. Continues to have thick secretions. Tolerating tube feeding. Positive BM. 06/23: Afebrile. Continues to have thick tracheal secretions from tracheostomy site. Tolerating tube feeding. 3 bowels movements. Opens eyes to stimulation. Stares at you but does not follow commands. 06/24: Remains encephalopathic, on mechanical ventilation via tracheostomy. Tolerating PEG feeds 06/25: Remains encephalopathic on mechanical ventilation. Tolerated C Pap +5 with pressure support +10 all day yesterday. Tolerating PEG feeds. 06/26: No improvement.Vent dependent still. 06/27: Remains encephalopathic, on mech vent via trach. Daily CPAP trials. 06/28: Unable to wean from ventilator. 06/29: Neurologically unchanged. Remains on mechanical ventilation. Daily C Pap trials ongoing. 06/30: Remains encephalopathic. On C Pap overnight. Tolerating tube feeds. 07/01: No change in neurologic status. On mechanical ventilation via tracheostomy. Tolerating tube feeds. 07/02: Remains encephalopathic. No change in neurologic status. On mechanical ventilation via tracheostomy. Daily C Pap trials ongoing. 07/03: Occasional spontaneous eye opening however remains encephalopathic. On mechanical ventilation via tracheostomy. 07/04: Tmax 99.2. Multiple bowel movements overnight. Tolerating tube feeds. On T piece trial at 5 L since noon yesterday. Otherwise neurologically unchanged. Daughter encouraged by movement of left leg. 07/05: Currently resting in bed on T piece 36 hours. Tolerates chair. No changes neurologically. Positive BM's. Tolerating her tube feeding. 07/06: Continue T-piece trials, if tolerated consider transfer to floor. 07/07: Extended T-piece trial. Plan transfer to floor. 07/09: Patient is experiencing apnea episodes and had to be placed back on higher FiO2.. Hold transfer. 07/10: X-ray left hip shows good anatomic alignment. Still requiring elevated FiO2. 07/11: Prealbumin 20, nutritional support is adequate and status is stable. No neurological improvement. 07/12: No improvement in neurological function. Continued acceptable respiratory effort. 07/13: No change. 10/03/17 Dr. Rizo notified stenotypist that patient would be transferring to ICU. Patient is known to [facility] service. She was originally admitted 04/20/17 after a fall with hip fracture resulting in ORIF 04/21. Postoperatively, she developed large R MCA stroke with midline shift. Her neurologic condition remained poor and she underwent trach 05/15/17 and PEG 05/16/17. She was eventually transitioned to Tpiece and transferred to floor. She has suffered from multiple infectious complications due to her persistent bedfast and trach dependent state. 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 She has been on trach collar with worsening hypoxemia therefore she is transferred to [facility] [place]. CXR from yesterday demonstrates bilateral pulmonary infiltrates. She has also had hyperkalemia today up to 6.7 which has been treated with kayexalate, down to 6. 2/: improvement in air space disease with diuresis and bronch yesterday. no overall improvements in chronic poor prognosis. unlikely to survive this hospital stay. daughter has poor insight into the gravity of her mother's medical condition. she will not recover meaningfully. 10/05: continuing to clinically improve from a respiratory standpoint. no improvements in overall poor function. off vent on t-piece today. can likely transition out of ICU tomorrow. 10/06 No events overnight. Remains on ventilator via trach. Afebrile. 10/07 No events overnight. Afebrile. 10/08 Patient is on ventilator via trach. afebrile. 10/09 No events overnight. Tolerating tube feeds. Afebrile. 10/10 Patient is on ventilators via trach. 10/11: Nursing reported patient intermittently follow commands today. BUN slightly elevated. Patient tolerating tube feeding 10/12: The patient tolerated CPAP for approximately 6 hours yesterday. No acute changes overnight. No neurological change in status. 10/13 No events overnight. Afebrile. 10/14 Patient remains on ventilator via trach. Afebrile. Didn't tolerate CPAP trials earlier today. Subjective 10/15: no changes. patient remains on the ventilator. unable to wean. Objective Vital Signs Date Time Temp Pulse Resp B/P (MAP) Pulse Ox O2 Delivery O2 Flow Rate FiO2 10/15/17 09:09 30 10/15/17 09:09 100 10/15/17 08:00 69 10/15/17 04:00 99.1 24 147/66 (93) Intake and Output 10/15/17 10/15/17 10/16/17 08:00 16:00 00:00 Intake Total 538 ml Balance 538 ml Result Diagram: 10/15/17 0738 10/15/17 0738 Imaging Last Impressions Chest X-Ray 10/11/17 0000 Signed Impressions: Service Date/Time: Wednesday, October 11, 2017 01:43 - CONCLUSION: 1. Tracheostomy in good position. Minimal basilar atelectasis or scarring. No effusion. Jaime Velasquez MD Abdomen X-Ray 10/10/17 0000 Signed Impressions: Service Date/Time: Tuesday, October 10, 2017 11:35 - CONCLUSION: No dilated bowel loops. Benja Ramsey MD Thoracentesis 08/05/17 1535 Signed Impressions: Service Date/Time: Saturday, August 05, 2017 16:08 - CONCLUSION: Uncomplicated CT-guided thoracentesis. Sage Adler MD Chest Ultrasound 08/02/17 0000 Signed Impressions: Service Date/Time: Tuesday, August 01, 2017 22:06 - CONCLUSION: 1. Moderate right pleural effusion, as above. Alejo De La Vega MD Hip and Pelvis X-Ray 07/09/17 0000 Signed Impressions: Service Date/Time: Sunday, July 09, 2017 14:04 - CONCLUSION: Anatomic alignment. Ricardo Middleton MD FACR Liver Ultrasound 06/19/17 0000 Signed Impressions: Service Date/Time: June 13:20 - CONCLUSION: 1. Mildly increased echotexture of the liver characteristic of hepatic steatosis. 2. Gallbladder sludge. Obdulio Sam MD Head CT 05/15/17 0000 Signed Impressions: Service Date/Time: May 19:59 - CONCLUSION: 1. 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 2. No bleed or new/acute infarct. Obdulio Simms MD Gall Bladder Ultrasound 05/08/17 0000 Signed Impressions: Service Date/Time: May 08:23 - CONCLUSION: Focally unremarkable appearance of the gallbladder Obdulio Chun MD Abdomen/Pelvis CT 05/07/17 0000 Signed Impressions: Service Date/Time: Sunday, May 07, 2017 13:23 - CONCLUSION: 1. Large left pneumothorax. 2. Bilateral lower lobe consolidation and bilateral moderate size pleural effusions. 3. Significant soft tissue thickening of the right lateral chest wall and left gluteus muscle. 4. Mild ascites. The findings were called to Dr. Carney. Deangelo Zamora MD Chest CT 04/30/17 0000 Signed Impressions: Service Date/Time: Sunday, April 30, 2017 09:20 - CONCLUSION: 1. Bilateral pulmonary infiltrates more pronounced within the lower lobes with tiny bilateral pleural effusions. Material seen filling the lower lobe bronchi bilaterally either related to purulent material or perhaps mucus plugging. Deangelo Wren Jr., MD Carotid Artery Ultrasound 04/24/17 0000 Signed Impressions: Service Date/Time: April 09:45 - CONCLUSION: 1. No hemodynamically significant carotid artery stenosis. Arnie Middleton MD Hip X-Ray 04/21/17 0000 Signed Impressions: Service Date/Time: Friday, April 21, 2017 11:36 - CONCLUSION: Fluoroscopic images during placement of intramedullary siomara left femur. Benja Ramsey MD Objective Remarks GENERAL: Elderly female, laying in bed on mechanical ventilation SKIN: Warm and dry, adequately perfused. HEAD: Atraumatic. Normocephalic. mucous membranes moist. NECK: 8.[address] Trachea midline. No JVD. CARDIOVASCULAR: Regular rate and rhythm RESPIRATORY: no accessory muscle use. prvc, 30% fio2. GASTROINTESTINAL: Abdomen soft, non-tender, nondistended. PEG in place with tube feeds running, site benign appearing. MUSCULOSKELETAL: Extremities without clubbing, cyanosis, or edema. No obvious deformities. NEUROLOGICAL: Eyes open spontaneously, does not appear to track. L gaze preference. R hemiparesis. Localizes with LUE. Very slight withdrawal of LLE to noxious stimuli. Not following commands A/P Assessment and Plan Assessment: 77yF with severe encephalopathy secondary to large MCA CVA, without meaningful improvements over many months. family continues to press for aggressive care. Continue weaning attempts to separate from mechanical ventilation. poor prognosis for any meaningful recovery at this point. Neuro/Psych: Left MCA CVA - 5.5 mm of [id number] subfalcine herniation, diagnosed 04/24. Persistent right-sided hemiparesis. Prior History of stroke Continue Aspirin 325 mg by tube daily. Stroke occurred 04/24/17. Patient was not a candidate for thrombolysis per discussion with neurology and radiology at that time. Repeat head CT 05/15 showed slight improvement in the midline shift now 5.5 mm and mass effect Neurosurgery consulted 04/30- Dr. López, recommended conservative management, now signed off. Neurology Dr. Malave has followed previously, signed off. Cardiovascular: Hypertension Norvasc 10 mg po daily, Cardura 1 mg peg daily, metoprolol 12.5 peg bid, hydralazine 10 mg per per peg q8 hours. clonidine prn SBP >160 Echo showed EF 25-30%, Grade I diastolic disfunction Pulmonary: Chronic Tracheostomy Now recurrent Acute hypoxemic respiratory failure Acute hypoxic respiratory failure - aspiration possible HCAP - previous episode resolved. Large left pneumothorax status post #10 Filipino chest tube 05/07 - resolved.Chest tube d/c'd 05/12/17 R pleural effusion - Continue with vent support keep sat >92% Ipratropium/albuterol aerosols every 6 hours with albuterol aerosols every 2 hours Pulm toilet, trach care SBT daily as gato- failing daily. Pulm is following GI/liver: Elevated transaminases, resolved Severe protein calorie malnutrition Small bowel ileus- resolved Hepatitis C antibody positive with negative genotype/viral load Hepatic steatosis Currently on PEG tube feeding with Glucerna 1.5 goal 45 cc an hour. KUB abdomen 10/10: No dilated bowel loops Beneprotein tid. Lansoprazole 30 mg daily for GI regimen Endocrine: Diabetes mellitus SSI high scale-dose every 6 hours , Levemir 7u Q12 /Renal/FEN: Monitor renal function. I/O's, electrolytes replacement as needed Heme: Chronic Rivaroxaban use prior to admission Leukocytosis Normocytic anemia Follow CBC and coags. ID: MDR Pseudomonas aeruginosa and pneumonia (HCAP) MSSA bacteremia - resolved. Serratia/staph aureus pneumonia - resolved. C glabrata UTI - resolved. Citrobacter UTI - resolved. Serratia/MSSA sputum VAP resolved Current relevant cultures: 09/25/17 -sputum culture - Pseudomonas aeruginosa, multidrug resistant ( including Zerbaxa and Avycaz resistance). On Colistin nebs started 1/30 Per ID, Dr. Ranjan Saleh Prior cultures: Urine culture 04/26/17 sofie glabrata Blood culture 04/29/17 1 out of 4 bottles staph aureus Sputum culture 04/30/17 MSSA and Serratia. urine 05/07-> Serratia, treated. Urine 05/25: Citrobacter MSK: Left Intertroch Hip Fx s/p IMN 04/21/17. Vitamin D deficiency Sacral decubitus ulcer, Previously stage III, healing. Continue calcium vitamin D 250/125 one tablet 3x a day and cholecalciferol 5000 units daily. PT/OT evaluate and treat Maxisorb every 3 days/dressing changes every 3 days per wound care Continue Beneprotein one packet 3x a day Prophylaxis: SCDs. Heparin 5000 subcut q8 hours. GI - lansoprazole 30 mg by PEG tube daily ACCESS: Anuj Hurd MD Oct 15, 2017 13:12
--- NOTE | 2017-10-15 19:37 | HHI.PR ---
Subjective Remarks 76 YO Frail female with RF,Trach,CVA no fever No Fever Tolerates CPAP Objective Vital Signs Vital Signs Date Time Temp Pulse Resp B/P (MAP) Pulse Ox O2 Delivery O2 Flow Rate FiO2 10/15/17 17:29 100 30 10/15/17 16:00 99.0 62 16 131/63 (85) 100 10/15/17 13:11 99 30 10/15/17 12:00 99.2 55 12 114/54 (74) 98 10/15/17 09:09 30 10/15/17 09:09 100 30 10/15/17 09:08 99 30 10/15/17 08:00 30 10/15/17 08:00 69 10/15/17 08:00 99.2 68 20 138/67 (90) 95 10/15/17 04:34 98 30 10/15/17 04:00 99.1 61 24 147/66 (93) 99 10/15/17 04:00 30 10/15/17 00:45 98 30 10/15/17 00:00 99.6 69 22 125/76 (92) 96 10/15/17 00:00 30 10/14/17 22:42 94 30 10/14/17 20:00 30 10/14/17 20:00 98.4 70 20 130/68 (88) 99 10/14/17 20:00 70 I/O 10/14/17 10/14/17 10/14/17 10/15/17 10/15/17 10/15/17 07:00 15:00 23:00 07:00 15:00 23:00 Intake Total 799 ml 538 ml 840 ml Output Total 650 ml 600 ml Balance 149 ml -600 ml 538 ml 840 ml Intake Oral 0 ml IV Total 0 ml Tube Feeding 539 ml 538 ml 540 ml Other 260 ml 300 ml Output Urine Total 600 ml 600 ml Stool Total 50 ml # Voids 1 5 4 # Bowel Movements 3 2 Result Diagram: 10/15/1773710/15/17737 Objective Remarks GENERAL: Elderly female,NAD SKIN: Warm and dry. HEAD: Normocephalic. EYES: No scleral icterus. No injection or drainage. NECK: Supple, trachea midline. No JVD or lymphadenopathy. CARDIOVASCULAR: Regular rate and rhythm without murmurs, gallops, or rubs. RESPIRATORY: Breath sounds equal bilaterally. No accessory muscle use. GASTROINTESTINAL: Abdomen soft, non-tender, nondistended. MUSCULOSKELETAL: No cyanosis, or edema. BACK: Nontender without obvious deformity. No CVA tenderness. A/P Assessment and Plan RF,S/P Trach CVA Pneumonia Pleural effusion Pseudomonas Tracheobronchitis, Hyperkalemia Hypoxia PLAN: Cont CPAP Aerosol nebs Supplement 02 TF Abx per ID DW RN at Chris Rizo MD Oct 15, 2017 19:37
[2017-10-16] VITALS (16 sets, daily range): BP systolic 126–145; BP diastolic 55–86; PULSE 56–71; RESP 16; TEMP 96.9–99.2; O2SAT 95–100
[2017-10-16] MEDS: INSULIN DETEMIR 100 UNITS/ML VIAL SQ SCH ×2 (00:26→12:00)
[2017-10-16] MEDS: hydrALAZINE HCL 10 MG TAB PEG SCH ×2 (05:50→14:32)
[2017-10-16] MEDS: ARTIFICIAL TEARS OPTH SOLN 15 ML BTL EACH EYE SCH ×3 (05:50→19:57)
[2017-10-16] MEDS: HEPARIN SODIUM - SQ 10,000 UNITS/ML VIAL SQ SCH ×2 (05:51→14:31)
[2017-10-16] MEDS: INSULIN NovoLIN REGULAR SUPPLEMENTAL SCALE SQ SCH ×4 (05:54→17:26)
[2017-10-16] MEDS: RESP: ALBUTEROL 2.5 MG/IPRATROPIUM 0.5 MG NEB (PRN) NEB (07:17)
[2017-10-16] MEDS: RESP: COLISTIN 150 MG VIAL NEB SCH ×3 (07:17→23:07)
[2017-10-16] MEDS: CHLORHEXIDINE 0.12% (ORAL KIT) 15 ML CUP MT SCH ×2 (08:00→20:00)
[2017-10-16] MEDS: DOXAZOSIN MESYLATE 1 MG TAB PEG SCH (08:38)
[2017-10-16] MEDS: ASPIRIN 325 MG TAB DOBHOFF SCH (08:38)
[2017-10-16] MEDS: SODIUM CHLORIDE 0.9% FLUSH 5 ML FLUSH IV FLUSH SCH ×2 (08:39→19:54)
[2017-10-16] MEDS: METOPROLOL TARTRATE 25 MG TAB PEG SCH ×2 (08:39→19:58)
[2017-10-16] MEDS: CHOLECALCIFEROL (VIT D3) 5000 UNIT CAP PEG SCH (08:39)
[2017-10-16] MEDS: CALCIUM/VITAMIN D 250 MG/125 U TAB PEG SCH ×3 (08:39→17:15)
[2017-10-16] MEDS: LACTOBACILLUS ACIDOPHILUS TAB PEG SCH ×2 (08:39→19:58)
[2017-10-16] MEDS: LANSOPRAZOLE SOLUTAB 30 MG TAB NG SCH (08:39)
--- NOTE | 2017-10-16 16:26 | HHI.CCPN ---
Subjective Remarks/Hospital Course 04/24: 76-year-old female with a medical history significant for prior stroke, diabetes mellitus who was admitted with DKA and a hip fracture for which she underwent ORIF on 04/21. Patient developed altered mental status and was last noted to be okay around 5:30 AM. Subsequently there was a change in her mental status and she was noted to not be moving her right side for which stroke alert was called. Head CT showed large left MCA territory ischemic infarct with edema. Patient was transferred to the ICU by family medicine service in the critical care consult was requested. I evaluated the patient following arrival to the ICU. At that time she was laying in bed with her eyes open however not following commands and had a dense right hemiplegia. Patient was also evaluated by Dr. Malave from neurology. [facility] further discussed current event with patient's daughter following her arrival to the ICU. Per the daughter patient has been living with her since her stroke in 2014 and does ambulate however has been having problems with memory and incontinence as well as gait difficulties. She does not feel patient would want intubation or tracheostomy or PEG tube. 04/25: Patient remains encephalopathic, awake though not following commands consistently. Dense right hemiplegia persists. Appears to be awake enough to protect airway currently. Patient's daughter rescinded DNR and made a full code last evening. 04/26: Remains encephalopathic, not following commands. On Dobbhoff for tube feeds at 30 cc per hour. Had urinary retention and drained 2 L of urine after placing Moser catheter today. CT head done this morning with large left MCA territory infarct with left to right midline shift and significant cerebral edema. Hyperglycemia noted. Patient given mannitol earlier for increasing cerebral edema. 04/27: Remains encephalopathic, not following commands. On Dobbhoff tube feeds at 30 cc per hour. When into A. fib with RVR last night which responded with Lopressor 5 mg IV 1 dose. 04/28: Remains encephalopathic, arousable, not following commands. Moves left upper extremity spontaneously. Tolerating Dobbhoff tube feeds. Remains on nasal cannula. 04/29: Encephalopathic, eyes be arousable, moves left upper extremity spontaneously and occasionally opens eyes. Dense right hemiplegia and aphasia persists. On nasal cannula. Dobbhoff tube feeds being advanced. Patient was transfused 1 unit PRBCs yesterday. Urine culture with yeast from yesterday for which fluconazole being started. Had brief run of A. fib with RVR which improved with Lopressor IV, currently in sinus rhythm. 04/30: Worsening hypoxemic respiratory failure, currently on partial nonrebreather. Remains lethargic. WBC count increased from 14.6 today 20.7. Chest x-ray shows bilateral worsening infiltrates and small pleural effusions. Sodium 154, weight up by 8 KG. Albumin 1 mg Bumex 1. Also one dose of albumin. Remains in sinus tachycardia. Tmax 101.3 05/01: Patient was intubated yesterday for lack of airway protection, and severe hypoxemic respiratory failure from aspiration pneumonia involving multiple lobes. Patient is on the vent lethargic, no spontaneous eye opening. Chest x- ray remains unchanged. Remains intermittently febrile Tmax 101.3. WBC count improving 05/02: Remains critically ill with no improvement in mental status. Spiking fever of 101.7. Blood culture and sputum culture with staph aureus sputum also growing GNR, WBC count 22,000 now indicating worsening sepsis. Daughter still requesting aggressive care. Palliative care is following 05/03: S/P large area dominant hemisphere CVA. No neurological improvement. Now with pneumonia (infiltrate, fever, leukocytosis) and appropriate abx coverage. She will have a hard time surviving the hip fx, CVA, and pneumonia. Palliative Care needs to be a mainstay of our plan. 05/04: No improvement in neuro status. Sputum C&S allows us to narrow abx coverage to levaquin alone. Lungs remain quite congested. Enteral nutrition tolerated. 05/05: No improvement in neuro status. Moves left arm spontaneously. Flaccid right side. Unresponsive. Persistent mild hypoglycemia - will cut Levemir 50%. Abdomen more distended, check KUB. 05/06: CT head with massive left MCA infarction and > 1 cm shift in right handed woman. She opens eyes, does not track. 05/07: Patient open eyes. Attempts to respond. Armenian speaking. Tolerating tube feeds. Positive bowel movement. Volume overloaded. 05/08: Tmax 99.4. Potassium being replaced. Ultrasound gallbladder currently pending. Transaminases are trending downward. Gently diurese. 05/09: Alk phos decreasing. Remains with good urine output. Neurological status not improving. 05/10: Fixed neuro deficit unchanged. Profound CVA. 05/11: Appears to track with eyes today. No improvement in motor function. Remains very edematous, diuretics doubled. 05/12: Continued thick secretions. Afebrile, leukocytosis resolved. 05/13: CT head with completed left MCA stroke, persistent edema and 5 mm shift away. Does not last long on SBTs - major decision now is trach/PEG. 05/14: Daughter has decided to proceed with trach and PEG. I have been pessimistic with her about chances for a meaningful recovery. 05/15: Plan for trach today. No change in neuro status. Still ventilator dependent. 05/16: Trach completed. Await PEG and disposition. 05/17: PEG placed 05/16. Start TFs today after nutrition consult. Work to place patient. 05/18: No improvement. Does open eyes, no focus or tracking. Completed large dominant (left) hemisphere CVA in right handed woman with severe deficit. Medicaid pending status, [facility] is following. 05/19: no improvements in neuro exam. ready for LTAC. will d/c moser and rectal tubes. 05/20: no changes or improvements. very difficult placement due to patient not [place] citizen. 05/21: no improvements. resting on vent overnight due to distress. 05/22: no neurologic changes. no improvements. attempted T-piece which failed after 10 minutes. 05/23: no improvements. poor prognosis. poor neuro exam. still failing weaning trials. 05/24: no improvements or changes. still failing t-piece trials. 05/25: No acute changes of improvement overnight. Failed CPAP due to apnea, tried again currently tolerating. Neurological exam unchanged. 05/26: No improvement in neurological function. 05/27: Patient has required Moser catheter because of breakdown of skin on upper thighs and groin. Urine has become infected, will treat. 05/28: Some drainage from around trach (placed 2 weeks ago). Will change out trach tube and inspect neck wound. I&O straight cath q6h order entered 05/17. 05/29: No improvement, remains obtunded. Failed CPAP trials yesterday and again today due to apnea. Moser placed due to persistent urinary retention 05/30: Obtunded, unresponsive. Failed SBTs, remains ventilator dependent. 05/31: Patient continues to fail SBT failed yesterday due to apnea. Neuro exam remains unchanged. 06/01: No acute changes overnight, 06/02: no changes. ekg done overnight for ? EKG changes seen on telemetry which were not visualized on EKG. 06/03: no improvements or changes. had long conversation with daughter yesterday. only facility which would accept patient is in [place] and daughter is refusing to allow patient to go there because it is "too far away." Daughter continues to push for aggressive care despite no improvements, and resistant to Hospice. Patient does not need acute inpatient therapy but lacks funding for appropriate disposition. 06/04: No acute events overnight, failed SBT due to apnea. 06/05: No acute events, continues to fail spontaneous breathing trials. Unable to wean 06/06 Currently tolerating CPAP. Will attempt TP today up to 4 hours. No acute events overnight 06/07: Tolerating trach collar/T-piece. Transfer soon. 06/08: Awaiting transfer. 06/09: Remains ventilator dependent. No improvement in neurological function. 06/10: No improvement. Daughter is not attending preplanned meetings to discuss disposition 06/12: Afebrile. Neurologically stable and unchanged. Noted sodium 135. Adding sodium chloride tablets 1 today. Not on free water.. Tolerating tube feeds at goal 45 cc an hour. 06/13: No improvement in neurological function. 06/14: No improvement. Fluid balance correct. Gas exchange acceptable. 06/15: No improvement. Obtunded and unresponsive. 06/16: no improvements in mental status. KUB overnight with dilated small bowel loops. given methylnaltrexone and erythromycin. today abdomen is soft and tolerating tube feeds. 06/17: tolerated t-piece x 6 hours yesterday. rested on cpap overnight. no changes in encephalopathy. 06/18: Currently on ventilator overnight. Multiple bowel movements. Thick yellow secretions noted in ventilator circuit. Opens eyes. 06/19: Afebrile. Tolerating stretcher chair yesterday on PSV. Tolerating tube feeding. Neurologically unchanged. 06/20: Afebrile. Resting in bed in no acute distress in sitting position. Currently on ventilator set sitting. Tolerated stretcher chair/PSV trial 6 hours yesterday. Neurologically unchanged. 06/21: Tmax 100.8. Patient with copious thick yellow secretions. Tolerating tube feeds. Positive bowel movement. Lasted only 1 hour PSV yesterday 06/22: Tmax 99.9. Continues to have thick secretions. Tolerating tube feeding. Positive BM. 06/23: Afebrile. Continues to have thick tracheal secretions from tracheostomy site. Tolerating tube feeding. 3 bowels movements. Opens eyes to stimulation. Stares at you but does not follow commands. 06/24: Remains encephalopathic, on mechanical ventilation via tracheostomy. Tolerating PEG feeds 06/25: Remains encephalopathic on mechanical ventilation. Tolerated C Pap +5 with pressure support +10 all day yesterday. Tolerating PEG feeds. 06/26: No improvement.Vent dependent still. 06/27: Remains encephalopathic, on mech vent via trach. Daily CPAP trials. 06/28: Unable to wean from ventilator. 06/29: Neurologically unchanged. Remains on mechanical ventilation. Daily C Pap trials ongoing. 06/30: Remains encephalopathic. On C Pap overnight. Tolerating tube feeds. 07/01: No change in neurologic status. On mechanical ventilation via tracheostomy. Tolerating tube feeds. 07/02: Remains encephalopathic. No change in neurologic status. On mechanical ventilation via tracheostomy. Daily C Pap trials ongoing. 07/03: Occasional spontaneous eye opening however remains encephalopathic. On mechanical ventilation via tracheostomy. 07/04: Tmax 99.2. Multiple bowel movements overnight. Tolerating tube feeds. On T piece trial at 5 L since noon yesterday. Otherwise neurologically unchanged. Daughter encouraged by movement of left leg. 07/05: Currently resting in bed on T piece 36 hours. Tolerates chair. No changes neurologically. Positive BM's. Tolerating her tube feeding. 07/06: Continue T-piece trials, if tolerated consider transfer to floor. 07/07: Extended T-piece trial. Plan transfer to floor. 07/09: Patient is experiencing apnea episodes and had to be placed back on higher FiO2.. Hold transfer. 07/10: X-ray left hip shows good anatomic alignment. Still requiring elevated FiO2. 07/11: Prealbumin 20, nutritional support is adequate and status is stable. No neurological improvement. 07/12: No improvement in neurological function. Continued acceptable respiratory effort. 07/13: No change. 10/03/17 Dr. Rizo notified branch service leader that patient would be transferring to ICU. Patient is known to [facility] service. She was originally admitted 04/20/17 after a fall with hip fracture resulting in ORIF 04/21. Postoperatively, she developed large R MCA stroke with midline shift. Her neurologic condition remained poor and she underwent trach 05/15/17 and PEG 05/16/17. She was eventually transitioned to Tpiece and transferred to floor. She has suffered from multiple infectious complications due to her persistent bedfast and trach dependent state. 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 She has been on trach collar with worsening hypoxemia therefore she is transferred to [facility]. CXR from yesterday demonstrates bilateral pulmonary infiltrates. She has also had hyperkalemia today up to 6.7 which has been treated with kayexalate, down to 6. 2: improvement in air space disease with diuresis and bronch yesterday. no overall improvements in chronic poor prognosis. unlikely to survive this hospital stay. daughter has poor insight into the gravity of her mother's medical condition. she will not recover meaningfully. 10/05: continuing to clinically improve from a respiratory standpoint. no improvements in overall poor function. off vent on t-piece today. can likely transition out of ICU tomorrow. 10/06 No events overnight. Remains on ventilator via trach. Afebrile. 10/07 No events overnight. Afebrile. 10/08 Patient is on ventilator via trach. afebrile. 10/09 No events overnight. Tolerating tube feeds. Afebrile. 10/10 Patient is on ventilators via trach. 10/11: Nursing reported patient intermittently follow commands today. BUN slightly elevated. Patient tolerating tube feeding 10/12: The patient tolerated CPAP for approximately 6 hours yesterday. No acute changes overnight. No neurological change in status. 10/13 No events overnight. Afebrile. 10/14 Patient remains on ventilator via trach. Afebrile. Didn't tolerate CPAP trials earlier today. Subjective 10/15: no changes. patient remains on the ventilator. unable to wean. 10/16: no improvements. no changes. PSV trials ongoing, not ready for SBT. Objective Vital Signs Date Time Temp Pulse Resp B/P (MAP) Pulse Ox O2 Delivery O2 Flow Rate FiO2 10/16/17 13:25 99 30 10/16/17 12:00 98.0 56 16 140/55 (83) Intake and Output 10/16/17 10/16/17 10/16/17 07:59 15:59 23:59 Intake Total 1122 ml Balance 1122 ml Result Diagram: 10/15/17 0738 10/15/17 0738 Imaging Last Impressions Chest X-Ray 10/11/17 0000 Signed Impressions: Service Date/Time: Wednesday, October 11, 2017 01:43 - CONCLUSION: 1. Tracheostomy in good position. Minimal basilar atelectasis or scarring. No effusion. Jaime Velasquez MD Abdomen X-Ray 10/10/17 0000 Signed Impressions: Service Date/Time: Tuesday, October 10, 2017 11:35 - CONCLUSION: No dilated bowel loops. Benja Ramsey MD Thoracentesis 08/05/17 1535 Signed Impressions: Service Date/Time: Saturday, August 05, 2017 16:08 - CONCLUSION: Uncomplicated CT-guided thoracentesis. Sage Adler MD Chest Ultrasound 08/02/17 0000 Signed Impressions: Service Date/Time: Tuesday, August 01, 2017 22:06 - CONCLUSION: 1. Moderate right pleural effusion, as above. Alejo De La Vega MD Hip and Pelvis X-Ray 07/09/17 0000 Signed Impressions: Service Date/Time: Sunday, July 09, 2017 14:04 - CONCLUSION: Anatomic alignment. Ricardo Middleton MD FACR Liver Ultrasound 06/19/17 0000 Signed Impressions: Service Date/Time: June 13:20 - CONCLUSION: 1. Mildly increased echotexture of the liver characteristic of hepatic steatosis. 2. Gallbladder sludge. Obdulio Sam MD Head CT 05/15/17 0000 Signed Impressions: Service Date/Time: , May 15, 2017 19:59 - CONCLUSION: 1. 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 2. No bleed or new/acute infarct. Obdulio Simms MD Gall Bladder Ultrasound 05/08/17 0000 Signed Impressions: Service Date/Time: May 08:23 - CONCLUSION: Focally unremarkable appearance of the gallbladder Obdulio Chun MD Abdomen/Pelvis CT 05/07/17 0000 Signed Impressions: Service Date/Time: Sunday, May 07, 2017 13:23 - CONCLUSION: 1. Large left pneumothorax. 2. Bilateral lower lobe consolidation and bilateral moderate size pleural effusions. 3. Significant soft tissue thickening of the right lateral chest wall and left gluteus muscle. 4. Mild ascites. The findings were called to Dr. Carney. Deangelo Zamora MD Chest CT 04/30/17 0000 Signed Impressions: Service Date/Time: Sunday, April 30, 2017 09:20 - CONCLUSION: 1. Bilateral pulmonary infiltrates more pronounced within the lower lobes with tiny bilateral pleural effusions. Material seen filling the lower lobe bronchi bilaterally either related to purulent material or perhaps mucus plugging. Deangelo Wren Jr., MD Carotid Artery Ultrasound 04/24/17 0000 Signed Impressions: Service Date/Time: April 09:45 - CONCLUSION: 1. No hemodynamically significant carotid artery stenosis. Arnie Middleton MD Hip X-Ray 04/21/17 0000 Signed Impressions: Service Date/Time: Friday, April 21, 2017 11:36 - CONCLUSION: Fluoroscopic images during placement of intramedullary siomara left femur. Benja Ramsey MD Objective Remarks GENERAL: Elderly female, laying in bed on mechanical ventilation SKIN: Warm and dry, adequately perfused. HEAD: Atraumatic. Normocephalic. mucous membranes moist. NECK: 8.[address] Trachea midline. No JVD. CARDIOVASCULAR: Regular rate and rhythm RESPIRATORY: no accessory muscle use. prvc, 30% fio2. GASTROINTESTINAL: Abdomen soft, non-tender, nondistended. PEG in place with tube feeds running, site benign appearing. MUSCULOSKELETAL: Extremities without clubbing, cyanosis, or edema. No obvious deformities. NEUROLOGICAL: Eyes open spontaneously, does not appear to track. L gaze preference. R hemiparesis. Localizes with LUE. Very slight withdrawal of LLE to noxious stimuli. Not following commands A/P Assessment and Plan Assessment: 77yF with severe encephalopathy secondary to large MCA CVA, without meaningful improvements over many months. family continues to press for aggressive care. Continue weaning attempts to separate from mechanical ventilation. poor prognosis for any meaningful recovery at this point. Neuro/Psych: Left MCA CVA - 5.5 mm of [id number] subfalcine herniation, diagnosed 04/24. Persistent right-sided hemiparesis. Prior History of stroke Continue Aspirin 325 mg by tube daily. Stroke occurred 04/24/17. Patient was not a candidate for thrombolysis per discussion with neurology and radiology at that time. Repeat head CT 05/15 showed slight improvement in the midline shift now 5.5 mm and mass effect Neurosurgery consulted 04/30- Dr. López, recommended conservative management, now signed off. Neurology Dr. Malave has followed previously, signed off. Cardiovascular: Hypertension Norvasc 10 mg po daily, Cardura 1 mg peg daily, metoprolol 12.5 peg bid, hydralazine 10 mg per per peg q8 hours. clonidine prn SBP >160 Echo showed EF 25-30%, Grade I diastolic disfunction Pulmonary: Chronic Tracheostomy Now recurrent Acute hypoxemic respiratory failure Acute hypoxic respiratory failure - aspiration possible HCAP - previous episode resolved. Large left pneumothorax status post #10 Gu[place] chest tube 05/07 - resolved.Chest tube d/c'd 05/12/17 R pleural effusion - Continue with vent support keep sat >92% Ipratropium/albuterol aerosols every 6 hours with albuterol aerosols every 2 hours Pulm toilet, trach care SBT daily as gato- failing daily. Pulm is following GI/liver: Elevated transaminases, resolved Severe protein calorie malnutrition Small bowel ileus- resolved Hepatitis C antibody positive with negative genotype/viral load Hepatic steatosis Currently on PEG tube feeding with Glucerna 1.5 goal 45 cc an hour. KUB abdomen 10/10: No dilated bowel loops Beneprotein tid. Lansoprazole 30 mg daily for GI regimen Endocrine: Diabetes mellitus SSI high scale-dose every 6 hours , Levemir 7u Q12 /Renal/FEN: Monitor renal function. I/O's, electrolytes replacement as needed Heme: Chronic Rivaroxaban use prior to admission Leukocytosis Normocytic anemia Follow CBC and coags. ID: MDR Pseudomonas aeruginosa and pneumonia (HCAP) MSSA bacteremia - resolved. Serratia/staph aureus pneumonia - resolved. C glabrata UTI - resolved. Citrobacter UTI - resolved. Serratia/MSSA sputum VAP resolved Current relevant cultures: 09/25/17 -sputum culture - Pseudomonas aeruginosa, multidrug resistant ( including Zerbaxa and Avycaz resistance). On Colistin nebs started 09/30 Per ID, Dr. Ranjan Saleh Prior cultures: Urine culture 04/26/17 sofie glabrata Blood culture 04/29/17 1 out of 4 bottles staph aureus Sputum culture 04/30/17 MSSA and Serratia. urine 05/07-> Serratia, treated. Urine 05/25: Citrobacter MSK: Left Intertroch Hip Fx s/p IMN 04/21/17. Vitamin D deficiency Sacral decubitus ulcer, Previously stage III, healing. Continue calcium vitamin D 250/125 one tablet 3x a day and cholecalciferol 5000 units daily. PT/OT evaluate and treat Maxisorb every 3 days/dressing changes every 3 days per wound care Continue Beneprotein one packet 3x a day Prophylaxis: SCDs. Heparin 5000 subcut q8 hours. GI - lansoprazole 30 mg by PEG tube daily ACCESS: Anuj Hurd MD Oct 16, 2017 16:26
--- NOTE | 2017-10-16 20:42 | HHI.PR ---
Subjective Remarks 76 YO Frail female with RF,Trach,CVA no fever No Fever On Vent AC 14 Objective Vital Signs Vital Signs Date Time Temp Pulse Resp B/P (MAP) Pulse Ox O2 Delivery O2 Flow Rate FiO2 10/16/17 20:35 99 30 10/16/17 20:09 100 30 10/16/17 19:50 97.7 67 16 134/69 (90) 98 10/16/17 16:58 99 30 10/16/17 16:00 99.0 71 16 129/71 (90) 100 10/16/17 16:00 30 10/16/17 13:25 99 30 10/16/17 12:00 30 10/16/17 12:00 98.0 56 16 140/55 (83) 98 10/16/17 10:58 98 30 10/16/17 08:30 96.9 61 16 129/60 (83) 100 10/16/17 08:30 61 10/16/17 07:20 95 30 10/16/17 07:17 30 10/16/17 07:15 30 10/16/17 04:19 97 30 10/16/17 04:00 99.2 68 16 126/66 (86) 100 10/16/17 04:00 30 10/16/17 01:35 100 30 10/16/17 00:00 30 10/16/17 00:00 99.0 62 16 145/86 (105) 99 10/15/17 22:32 30 10/15/17 22:32 100 30 10/15/17 22:00 30 I/O 10/15/17 10/15/17 10/15/17 10/16/17 10/16/17 10/16/17 07:00 15:00 23:00 07:00 15:00 23:00 Intake Total 538 ml 840 ml 1122 ml 685 ml Output Total 100 ml Balance 538 ml 840 ml 1122 ml 585 ml Intake Oral 0 ml IV Total 0 ml Tube Feeding 538 ml 540 ml 822 ml 485 ml Other 300 ml 300 ml 200 ml Stool Total 100 ml # Voids 5 4 4 3 # Bowel Movements 3 2 0 Result Diagram: 10/15/1773710/15/17737 Objective Remarks GENERAL: Elderly female,NAD SKIN: Warm and dry. HEAD: Normocephalic. EYES: No scleral icterus. No injection or drainage. NECK: Supple, trachea midline. No JVD or lymphadenopathy. CARDIOVASCULAR: Regular rate and rhythm without murmurs, gallops, or rubs. RESPIRATORY: Breath sounds equal bilaterally. No accessory muscle use. GASTROINTESTINAL: Abdomen soft, non-tender, nondistended. MUSCULOSKELETAL: No cyanosis, or edema. BACK: Nontender without obvious deformity. No CVA tenderness. A/P Assessment and Plan RF,S/P Trach CVA Pneumonia Pleural effusion Pseudomonas Tracheobronchitis, Hyperkalemia Hypoxia PLAN: Vent support with ACV Aerosol nebs Supplement 02 TF Abx per ID DW RT at BS Chris Rizo MD Oct 16, 2017 20:42
[2017-10-17] VITALS (13 sets, daily range): BP systolic 132–157; BP diastolic 71–80; PULSE 56–73; RESP 16–18; TEMP 96.7–98.2; O2SAT 94–99
[2017-10-17] MEDS: INSULIN NovoLIN REGULAR SUPPLEMENTAL SCALE SQ SCH ×4 (00:38→18:00)
[2017-10-17] MEDS: hydrALAZINE HCL 10 MG TAB PEG SCH ×4 (00:39→21:51)
[2017-10-17] MEDS: HEPARIN SODIUM - SQ 10,000 UNITS/ML VIAL SQ SCH ×4 (00:39→21:51)
[2017-10-17] MEDS: ARTIFICIAL TEARS OPTH SOLN 15 ML BTL EACH EYE SCH ×3 (06:00→21:52)
[2017-10-17] MEDS: RESP: COLISTIN 150 MG VIAL NEB SCH ×3 (07:14→23:08)
[2017-10-17] MEDS: CHLORHEXIDINE 0.12% (ORAL KIT) 15 ML CUP MT SCH ×2 (08:00→20:00)
[2017-10-17] MEDS: SODIUM CHLORIDE 0.9% FLUSH 5 ML FLUSH IV FLUSH SCH ×2 (09:00→21:00)
[2017-10-17] MEDS: ASPIRIN 325 MG TAB DOBHOFF SCH (09:47)
[2017-10-17] MEDS: CALCIUM/VITAMIN D 250 MG/125 U TAB PEG SCH ×3 (09:48→18:52)
[2017-10-17] MEDS: METOPROLOL TARTRATE 25 MG TAB PEG SCH ×2 (09:48→21:51)
[2017-10-17] MEDS: CHOLECALCIFEROL (VIT D3) 5000 UNIT CAP PEG SCH (09:48)
[2017-10-17] MEDS: LACTOBACILLUS ACIDOPHILUS TAB PEG SCH ×2 (09:49→21:51)
[2017-10-17] MEDS: LANSOPRAZOLE SOLUTAB 30 MG TAB NG SCH (09:49)
[2017-10-17] MEDS: DOXAZOSIN MESYLATE 1 MG TAB PEG SCH (10:06)
[2017-10-17] MEDS: INSULIN DETEMIR 100 UNITS/ML VIAL SQ SCH ×2 (11:28)
--- NOTE | 2017-10-17 13:40 | HHI.CCPN ---
Subjective Remarks/Hospital Course 04/24: 76-year-old female with a medical history significant for prior stroke, diabetes mellitus who was admitted with DKA and a hip fracture for which she underwent ORIF on 04/21. Patient developed altered mental status and was last noted to be okay around 5:30 AM. Subsequently there was a change in her mental status and she was noted to not be moving her right side for which stroke alert was called. Head CT showed large left MCA territory ischemic infarct with edema. Patient was transferred to the ICU by family medicine service in the critical care consult was requested. I evaluated the patient following arrival to the ICU. At that time she was laying in bed with her eyes open however not following commands and had a dense right hemiplegia. Patient was also evaluated by Dr. Malave from neurology. [facility] further discussed current event with patient's daughter following her arrival to the ICU. Per the daughter patient has been living with her since her stroke in 2014 and does ambulate however has been having problems with memory and incontinence as well as gait difficulties. She does not feel patient would want intubation or tracheostomy or PEG tube. 04/25: Patient remains encephalopathic, awake though not following commands consistently. Dense right hemiplegia persists. Appears to be awake enough to protect airway currently. Patient's daughter rescinded DNR and made a full code last evening. 04/26: Remains encephalopathic, not following commands. On Dobbhoff for tube feeds at 30 cc per hour. Had urinary retention and drained 2 L of urine after placing Moser catheter today. CT head done this morning with large left MCA territory infarct with left to right midline shift and significant cerebral edema. Hyperglycemia noted. Patient given mannitol earlier for increasing cerebral edema. 04/27: Remains encephalopathic, not following commands. On Dobbhoff tube feeds at 30 cc per hour. When into A. fib with RVR last night which responded with Lopressor 5 mg IV 1 dose. 04/28: Remains encephalopathic, arousable, not following commands. Moves left upper extremity spontaneously. Tolerating Dobbhoff tube feeds. Remains on nasal cannula. 04/29: Encephalopathic, eyes be arousable, moves left upper extremity spontaneously and occasionally opens eyes. Dense right hemiplegia and aphasia persists. On nasal cannula. Dobbhoff tube feeds being advanced. Patient was transfused 1 unit PRBCs yesterday. Urine culture with yeast from yesterday for which fluconazole being started. Had brief run of A. fib with RVR which improved with Lopressor IV, currently in sinus rhythm. 04/30: Worsening hypoxemic respiratory failure, currently on partial nonrebreather. Remains lethargic. WBC count increased from 14.6 today 20.7. Chest x-ray shows bilateral worsening infiltrates and small pleural effusions. Sodium 154, weight up by 8 KG. Albumin 1 mg Bumex 1. Also one dose of albumin. Remains in sinus tachycardia. Tmax 101.3 05/01: Patient was intubated yesterday for lack of airway protection, and severe hypoxemic respiratory failure from aspiration pneumonia involving multiple lobes. Patient is on the vent lethargic, no spontaneous eye opening. Chest x- ray remains unchanged. Remains intermittently febrile Tmax 101.3. WBC count improving 05/02: Remains critically ill with no improvement in mental status. Spiking fever of 101.7. Blood culture and sputum culture with staph aureus sputum also growing GNR, WBC count 22,000 now indicating worsening sepsis. Daughter still requesting aggressive care. Palliative care is following 05/03: S/P large area dominant hemisphere CVA. No neurological improvement. Now with pneumonia (infiltrate, fever, leukocytosis) and appropriate abx coverage. She will have a hard time surviving the hip fx, CVA, and pneumonia. Palliative Care needs to be a mainstay of our plan. 05/04: No improvement in neuro status. Sputum C&S allows us to narrow abx coverage to levaquin alone. Lungs remain quite congested. Enteral nutrition tolerated. 05/05: No improvement in neuro status. Moves left arm spontaneously. Flaccid right side. Unresponsive. Persistent mild hypoglycemia - will cut Levemir 50%. Abdomen more distended, check KUB. 05/06: CT head with massive left MCA infarction and > 1 cm shift in right handed woman. She opens eyes, does not track. 05/07: Patient open eyes. Attempts to respond. [place]an speaking. Tolerating tube feeds. Positive bowel movement. Volume overloaded. 05/08: Tmax 99.4. Potassium being replaced. Ultrasound gallbladder currently pending. Transaminases are trending downward. Gently diurese. 05/09: Alk phos decreasing. Remains with good urine output. Neurological status not improving. 05/10: Fixed neuro deficit unchanged. Profound CVA. 05/11: Appears to track with eyes today. No improvement in motor function. Remains very edematous, diuretics doubled. 05/12: Continued thick secretions. Afebrile, leukocytosis resolved. 05/13: CT head with completed left MCA stroke, persistent edema and 5 mm shift away. Does not last long on SBTs - major decision now is trach/PEG. 05/14: Daughter has decided to proceed with trach and PEG. I have been pessimistic with her about chances for a meaningful recovery. 05/15: Plan for trach today. No change in neuro status. Still ventilator dependent. 05/16: Trach completed. Await PEG and disposition. 05/17: PEG placed 05/16. Start TFs today after nutrition consult. Work to place patient. 05/18: No improvement. Does open eyes, no focus or tracking. Completed large dominant (left) hemisphere CVA in right handed woman with severe deficit. Medicaid pending status, [facility] is following. 05/19: no improvements in neuro exam. ready for LTAC. will d/c moser and rectal tubes. 05/20: no changes or improvements. very difficult placement due to patient not [place] citizen. 05/21: no improvements. resting on vent overnight due to distress. 05/22: no neurologic changes. no improvements. attempted T-piece which failed after 10 minutes. 05/23: no improvements. poor prognosis. poor neuro exam. still failing weaning trials. 05/24: no improvements or changes. still failing t-piece trials. 05/25: No acute changes of improvement overnight. Failed CPAP due to apnea, tried again currently tolerating. Neurological exam unchanged. 05/26: No improvement in neurological function. 05/27: Patient has required Moser catheter because of breakdown of skin on upper thighs and groin. Urine has become infected, will treat. 05/28: Some drainage from around trach (placed 2 weeks ago). Will change out trach tube and inspect neck wound. I&O straight cath q6h order entered 05/17. 05/29: No improvement, remains obtunded. Failed CPAP trials yesterday and again today due to apnea. Moser placed due to persistent urinary retention 05/30: Obtunded, unresponsive. Failed SBTs, remains ventilator dependent. 05/31: Patient continues to fail SBT failed yesterday due to apnea. Neuro exam remains unchanged. 06/01: No acute changes overnight, 06/02: no changes. ekg done overnight for ? EKG changes seen on telemetry which were not visualized on EKG. 06/03: no improvements or changes. had long conversation with daughter yesterday. only facility which would accept patient is in [place] and daughter is refusing to allow patient to go there because it is "too far away." Daughter continues to push for aggressive care despite no improvements, and resistant to Hospice. Patient does not need acute inpatient therapy but lacks funding for appropriate disposition. 06/04: No acute events overnight, failed SBT due to apnea. 06/05: No acute events, continues to fail spontaneous breathing trials. Unable to wean 06/06 Currently tolerating CPAP. Will attempt TP today up to 4 hours. No acute events overnight 06/07: Tolerating trach collar/T-piece. Transfer soon. 06/08: Awaiting transfer. 06/09: Remains ventilator dependent. No improvement in neurological function. 06/10: No improvement. Daughter is not attending preplanned meetings to discuss disposition 06/12: Afebrile. Neurologically stable and unchanged. Noted sodium 135. Adding sodium chloride tablets 1 today. Not on free water.. Tolerating tube feeds at goal 45 cc an hour. 06/13: No improvement in neurological function. 06/14: No improvement. Fluid balance correct. Gas exchange acceptable. 06/15: No improvement. Obtunded and unresponsive. 06/16: no improvements in mental status. KUB overnight with dilated small bowel loops. given methylnaltrexone and erythromycin. today abdomen is soft and tolerating tube feeds. 06/17: tolerated t-piece x 6 hours yesterday. rested on cpap overnight. no changes in encephalopathy. 06/18: Currently on ventilator overnight. Multiple bowel movements. Thick yellow secretions noted in ventilator circuit. Opens eyes. 06/19: Afebrile. Tolerating stretcher chair yesterday on PSV. Tolerating tube feeding. Neurologically unchanged. 06/20: Afebrile. Resting in bed in no acute distress in sitting position. Currently on ventilator set sitting. Tolerated stretcher chair/PSV trial 6 hours yesterday. Neurologically unchanged. 06/21: Tmax 100.8. Patient with copious thick yellow secretions. Tolerating tube feeds. Positive bowel movement. Lasted only 1 hour PSV yesterday 06/22: Tmax 99.9. Continues to have thick secretions. Tolerating tube feeding. Positive BM. 06/23: Afebrile. Continues to have thick tracheal secretions from tracheostomy site. Tolerating tube feeding. 3 bowels movements. Opens eyes to stimulation. Stares at you but does not follow commands. 06/24: Remains encephalopathic, on mechanical ventilation via tracheostomy. Tolerating PEG feeds 06/25: Remains encephalopathic on mechanical ventilation. Tolerated C Pap +5 with pressure support +10 all day yesterday. Tolerating PEG feeds. 06/26: No improvement.Vent dependent still. 06/27: Remains encephalopathic, on mech vent via trach. Daily CPAP trials. 06/28: Unable to wean from ventilator. 06/29: Neurologically unchanged. Remains on mechanical ventilation. Daily C Pap trials ongoing. 06/30: Remains encephalopathic. On C Pap overnight. Tolerating tube feeds. 07/01: No change in neurologic status. On mechanical ventilation via tracheostomy. Tolerating tube feeds. 07/02: Remains encephalopathic. No change in neurologic status. On mechanical ventilation via tracheostomy. Daily C Pap trials ongoing. 07/03: Occasional spontaneous eye opening however remains encephalopathic. On mechanical ventilation via tracheostomy. 07/04: Tmax 99.2. Multiple bowel movements overnight. Tolerating tube feeds. On T piece trial at 5 L since noon yesterday. Otherwise neurologically unchanged. Daughter encouraged by movement of left leg. 07/05: Currently resting in bed on T piece 36 hours. Tolerates chair. No changes neurologically. Positive BM's. Tolerating her tube feeding. 07/06: Continue T-piece trials, if tolerated consider transfer to floor. 07/07: Extended T-piece trial. Plan transfer to floor. 07/09: Patient is experiencing apnea episodes and had to be placed back on higher FiO2.. Hold transfer. 07/10: X-ray left hip shows good anatomic alignment. Still requiring elevated FiO2. 07/11: Prealbumin 20, nutritional support is adequate and status is stable. No neurological improvement. 07/12: No improvement in neurological function. Continued acceptable respiratory effort. 07/13: No change. 10/03/17 Dr. Rizo notified student ministry pastor that patient would be transferring to ICU. Patient is known to [facility] service. She was originally admitted 04/20/17 after a fall with hip fracture resulting in ORIF 04/21. Postoperatively, she developed large R MCA stroke with midline shift. Her neurologic condition remained poor and she underwent trach 05/15/17 and PEG 05/16/17. She was eventually transitioned to Tpiece and transferred to floor. She has suffered from multiple infectious complications due to her persistent bedfast and trach dependent state. 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 She has been on trach collar with worsening hypoxemia therefore she is transferred to [facility] [place]. CXR from yesterday demonstrates bilateral pulmonary infiltrates. She has also had hyperkalemia today up to 6.7 which has been treated with kayexalate, down to 6. 2: improvement in air space disease with diuresis and bronch yesterday. no overall improvements in chronic poor prognosis. unlikely to survive this hospital stay. daughter has poor insight into the gravity of her mother's medical condition. she will not recover meaningfully. 10/05: continuing to clinically improve from a respiratory standpoint. no improvements in overall poor function. off vent on t-piece today. can likely transition out of ICU tomorrow. 10/06 No events overnight. Remains on ventilator via trach. Afebrile. 10/07 No events overnight. Afebrile. 10/08 Patient is on ventilator via trach. afebrile. 10/09 No events overnight. Tolerating tube feeds. Afebrile. 10/10 Patient is on ventilators via trach. 10/11: Nursing reported patient intermittently follow commands today. BUN slightly elevated. Patient tolerating tube feeding 10/12: The patient tolerated CPAP for approximately 6 hours yesterday. No acute changes overnight. No neurological change in status. 10/13 No events overnight. Afebrile. 10/14 Patient remains on ventilator via trach. Afebrile. Didn't tolerate CPAP trials earlier today. Subjective 10/15: no changes. patient remains on the ventilator. unable to wean. 10/16: no improvements. no changes. PSV trials ongoing, not ready for SBT. 10/17 No events overnight. On CPAP. Objective Vital Signs Date Time Temp Pulse Resp B/P (MAP) Pulse Ox O2 Delivery O2 Flow Rate FiO2 10/17/17 12:00 97.3 59 18 145/71 (95) 99 10/17/17 12:00 35 Intake and Output 10/17/17 10/17/17 10/18/17 08:00 16:00 00:00 Intake Total 663 ml Output Total 125 ml Balance 538 ml Result Diagram: 10/15/17 0738 10/15/17 0738 Imaging Last Impressions Chest X-Ray 10/15/17 0000 Signed Impressions: Service Date/Time: Sunday, October 15, 2017 11:45 - CONCLUSION: 1. Heart size is borderline with mild interstitial prominence characteristic of some degree of vascular congestion or volume overload. No lanny failure. 2. Atelectatic changes above the left hemidiaphragm with possible small left- sided effusion. Ananda Oneill MD Abdomen X-Ray 10/10/17 0000 Signed Impressions: Service Date/Time: Tuesday, October 10, 2017 11:35 - CONCLUSION: No dilated bowel loops. Benja Ramsey MD Thoracentesis 08/05/17 1535 Signed Impressions: Service Date/Time: Saturday, August 05, 2017 16:08 - CONCLUSION: Uncomplicated CT-guided thoracentesis. Sage Adler MD Chest Ultrasound 08/02/17 0000 Signed Impressions: Service Date/Time: Tuesday, August 01, 2017 22:06 - CONCLUSION: 1. Moderate right pleural effusion, as above. Alejo De La Vega MD Hip and Pelvis X-Ray 07/09/17 0000 Signed Impressions: Service Date/Time: Sunday, July 09, 2017 14:04 - CONCLUSION: Anatomic alignment. Ricardo Middleton MD FACR Liver Ultrasound 06/19/17 0000 Signed Impressions: Service Date/Time: June 13:20 - CONCLUSION: 1. Mildly increased echotexture of the liver characteristic of hepatic steatosis. 2. Gallbladder sludge. Obdulio Sam MD Head CT 05/15/17 0000 Signed Impressions: Service Date/Time: May 19:59 - CONCLUSION: 1. 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 2. No bleed or new/acute infarct. Obdulio Simms MD Gall Bladder Ultrasound 05/08/17 0000 Signed Impressions: Service Date/Time: May 08:23 - CONCLUSION: Focally unremarkable appearance of the gallbladder Obdulio Chun MD Abdomen/Pelvis CT 05/07/17 0000 Signed Impressions: Service Date/Time: Sunday, May 07, 2017 13:23 - CONCLUSION: 1. Large left pneumothorax. 2. Bilateral lower lobe consolidation and bilateral moderate size pleural effusions. 3. Significant soft tissue thickening of the right lateral chest wall and left gluteus muscle. 4. Mild ascites. The findings were called to Dr. Carney. Deangelo Zamora MD Chest CT 04/30/17 0000 Signed Impressions: Service Date/Time: Sunday, April 30, 2017 09:20 - CONCLUSION: 1. Bilateral pulmonary infiltrates more pronounced within the lower lobes with tiny bilateral pleural effusions. Material seen filling the lower lobe bronchi bilaterally either related to purulent material or perhaps mucus plugging. Deangelo Wren Jr., MD Carotid Artery Ultrasound 04/24/17 0000 Signed Impressions: Service Date/Time: April 09:45 - CONCLUSION: 1. No hemodynamically significant carotid artery stenosis. Arnie Middleton MD Hip X-Ray 04/21/17 0000 Signed Impressions: Service Date/Time: Friday, April 21, 2017 11:36 - CONCLUSION: Fluoroscopic images during placement of intramedullary siomara left femur. Benja Ramsey MD Objective Remarks GENERAL: Elderly female, laying in bed on mechanical ventilation SKIN: Warm and dry, adequately perfused. HEAD: Atraumatic. Normocephalic. mucous membranes moist. NECK: 8.[address] Trachea midline. No JVD. CARDIOVASCULAR: Regular rate and rhythm RESPIRATORY: no accessory muscle use. prvc, 30% fio2. GASTROINTESTINAL: Abdomen soft, non-tender, nondistended. PEG in place with tube feeds running, site benign appearing. MUSCULOSKELETAL: Extremities without clubbing, cyanosis, or edema. No obvious deformities. NEUROLOGICAL: Eyes open spontaneously, does not appear to track. L gaze preference. R hemiparesis. Localizes with LUE. Very slight withdrawal of LLE to noxious stimuli. Not following commands A/P Assessment and Plan Assessment: 77yF with severe encephalopathy secondary to large MCA CVA, without meaningful improvements over many months. family continues to press for aggressive care. Continue weaning attempts to separate from mechanical ventilation. poor prognosis for any meaningful recovery at this point. Neuro/Psych: Left MCA CVA - 5.5 mm of [id number] subfalcine herniation, diagnosed 04/24. Persistent right-sided hemiparesis. Prior History of stroke Continue Aspirin 325 mg by tube daily. Stroke occurred 04/24/17. Patient was not a candidate for thrombolysis per discussion with neurology and radiology at that time. Repeat head CT 05/15 showed slight improvement in the midline shift now 5.5 mm and mass effect Neurosurgery consulted 04/30- Dr. López, recommended conservative management, now signed off. Neurology Dr. Malave has followed previously, signed off. Cardiovascular: Hypertension Norvasc 10 mg po daily, Cardura 1 mg peg daily, metoprolol 12.5 peg bid, hydralazine 10 mg per per peg q8 hours. clonidine prn SBP >160 Echo showed EF 25-30%, Grade I diastolic disfunction Pulmonary: Chronic Tracheostomy Now recurrent Acute hypoxemic respiratory failure Acute hypoxic respiratory failure - aspiration possible HCAP - previous episode resolved. Large left pneumothorax status post #10 Slovak chest tube 05/07 - resolved.Chest tube d/c'd 05/12/17 R pleural effusion - Continue with vent support keep sat >92% Ipratropium/albuterol aerosols every 6 hours with albuterol aerosols every 2 hours Pulm toilet, trach care SBT daily as gato- failing daily. Pulm is following GI/liver: Elevated transaminases, resolved Severe protein calorie malnutrition Small bowel ileus- resolved Hepatitis C antibody positive with negative genotype/viral load Hepatic steatosis Currently on PEG tube feeding with Glucerna 1.5 goal 45 cc an hour. KUB abdomen 10/10: No dilated bowel loops Beneprotein tid. Lansoprazole 30 mg daily for GI regimen Endocrine: Diabetes mellitus SSI high scale-dose every 6 hours , Levemir 7u Q12 /Renal/FEN: Monitor renal function. I/O's, electrolytes replacement as needed Heme: Chronic Rivaroxaban use prior to admission Leukocytosis Normocytic anemia Follow CBC and coags. ID: MDR Pseudomonas aeruginosa and pneumonia (HCAP) MSSA bacteremia - resolved. Serratia/staph aureus pneumonia - resolved. C glabrata UTI - resolved. Citrobacter UTI - resolved. Serratia/MSSA sputum VAP resolved Current relevant cultures: 09/25/17 -sputum culture - Pseudomonas aeruginosa, multidrug resistant ( including Zerbaxa and Avycaz resistance). On Colistin nebs started 09/30 Per ID, Dr. Ranjan Saleh Prior cultures: Urine culture 04/26/17 sofie glabrata Blood culture 04/29/17 1 out of 4 bottles staph aureus Sputum culture 04/30/17 MSSA and Serratia. urine 05/07-> Serratia, treated. Urine 05/25: Citrobacter MSK: Left Intertroch Hip Fx s/p IMN 04/21/17. Vitamin D deficiency Sacral decubitus ulcer, Previously stage III, healing. Continue calcium vitamin D 250/125 one tablet 3x a day and cholecalciferol 5000 units daily. PT/OT evaluate and treat Maxisorb every 3 days/dressing changes every 3 days per wound care Continue Beneprotein one packet 3x a day Prophylaxis: SCDs. Heparin 5000 subcut q8 hours. GI - lansoprazole 30 mg by PEG tube daily Check labs today ACCESS: Kristel Bailon MD Oct 17, 2017 13:40
--- NOTE | 2017-10-17 15:25 | HHI.IDPN ---
Subjective Subjective Remarks is a 76 y/o CF with PMHx of stroke, diabetes mellitus who was admitted with DKA and a hip fracture for which she underwent ORIF on 04/21. While in hospital recovering, patient developed altered mental status. Due to worsening mental status a stroke alert was called. Head CT showed large left MCA territory ischemic infarct with edema. Patient was transferred to the ICU by family medicine service and critical care consult was requested. At the time of evaluation in [facility], patient was opening her eyes however not following commands and had a dense right hemiplegia. Patient was also evaluated by Dr. Malave from neurology. At baseline, the patient lives with her daughter since her stroke in 2014 and does ambulate however has been having problems with memory and incontinence as well as gait difficulties. She does not feel patient would want intubation or tracheostomy or PEG tube. On 05/01/17 patient was intubated for severe hypoxemic respiratory failure from aspiration pneumonia. She also had a temp of 101 F. Blood culture and sputum culture with staph aureus sputum also growing GNR, WBC count 22,000 now indicating worsening sepsis. 05/06/[address] head with massive left MCA infarction and > 1 cm shift in right handed woman. Meanwhile patient is also being treated for C.glabrata UTI. At the time of my evaluation, patient is in [facility] on ventilator. She spontaneously opens eyes, did not follow commands for me. She underwent a CT A/ P which shows a left side pneumothorax. is placing a pigtail chest tube. She has a moser in place but no central line. ID is reconsulted for evaluation and Mment of Right side pneumonia with possible collapse lung, very MDR PSAE. Notes reviewed D/W RN Remains on vent. Overall clinically stable normal wbc, no fevers not much secretions. Temps ok No rash No diarrhea Antibiotics Current Medications Medications (Trade) Dose Ordered Sig/Zeferino Route Start Time Stop Time Status Last Admin (Narcan Inj) 0.4 mg UNSCH PRN IV 04/20/17 17:15 (NS Flush) 2 ml BID IV FLUSH 04/24/17 21:00 10/11/17 08:35 (NS Flush) 2 ml UNSCH PRN IV FLUSH 04/24/17 09:30 09/17/17 08:48 (Aspirin) 325 mg DAILY DOBHOFF 04/27/17 09:00 10/11/17 08:35 (Prevacid Odt) 30 mg DAILY NG 05/08/17 09:00 10/11/17 08:36 (Tears Naturale Opth Soln) 1 drop Q8HR EACH EYE 06/12/17 07:15 10/11/17 06:00 (Nitroglycerin 2% Oint) 2 inch Q6H PRN TOPICAL 06/21/17 08:00 06/30/17 14:37 (Heparin Inj) 5,000 units Q8HR SQ 07/15/17 08:00 10/11/17 06:05 (Duoneb Neb) 1 ampule Q6HR NEB PRN NEB 08/10/17 14:00 10/09/17 08:20 (Pill Splitter) 1 ea UNSCH PRN OTHER 09/05/17 11:00 (Tylenol) 500 mg Q6H PRN PEG 09/16/17 16:15 09/16/17 16:36 (Apresoline) 10 mg Q8HR PEG 09/24/17 14:00 10/11/17 06:05 (Coly-Mycin M Neb) 75 mg Q8HR NEB NEB 09/30/17 16:00 10/11/17 08:20 (Norvasc) 10 mg DAILY PEG 10/04/17 09:00 10/10/17 08:05 (Oscal-D 250-125) 250 mg TID PEG 10/03/17 13:00 10/11/17 08:35 (Vitamin D3) 5,000 units DAILY PEG 10/04/17 09:00 10/11/17 08:35 (Catapres) 0.1 mg Q6H PRN PEG 10/03/17 12:30 10/08/17 09:03 (Cardura) 1 mg DAILY PEG 10/04/17 09:00 10/11/17 08:36 (Lactinex) 1 tab Q12HR PEG 10/03/17 21:00 10/10/17 22:34 (Lopressor) 12.5 mg Q12HR PEG 10/03/17 21:00 10/10/17 22:35 (Miralax) 17 gm DAILY PRN PEG 10/03/17 12:00 (Beneprotein Powder) 1 pack TID PRN G-TUBE 10/03/17 12:00 (Albuterol Neb) 2.5 mg Q2HR NEB PRN NEB 10/03/17 21:45 10/08/17 22:26 (fentaNYL INJ) 50 mcg Q1H PRN IV PUSH 10/03/17 23:00 (Peridex 0.12% Liq) 15 ml BID@08,20 MT 10/04/17 08:00 10/11/17 08:00 (Levemir Inj) 7 units Q12H SQ 10/08/17 12:00 10/10/17 23:15 (D50w (Vial) Inj) 50 ml UNSCH PRN IV PUSH 10/08/17 09:45 (Glucagon Inj) 1 mg UNSCH PRN OTHER 10/08/17 09:45 (NovoLIN R SUPPLEMENTAL SCALE) 1 Q6HR SQ 10/08/17 12:00 10/10/17 17:54 Lines Line sites with no e.o infection. Past Medical History reviewed Allergies: Coded Allergies: No Known Allergies (Unverified , 04/20/17) Objective . Vital Signs Date Time Temp Pulse Resp B/P (MAP) Pulse Ox O2 Delivery O2 Flow Rate FiO2 10/17/17 12:00 97.3 59 18 145/71 (95) 99 10/17/17 12:00 35 10/17/17 10:16 99 30 10/17/17 08:00 96.7 61 17 157/76 (103) 98 10/17/17 08:00 61 10/17/17 08:00 35 10/17/17 07:18 30 10/17/17 07:18 99 30 10/17/17 06:08 99 35 10/17/17 05:22 98 30 10/17/17 01:03 99 30 10/17/17 00:00 30 10/17/17 00:00 98.0 56 16 132/75 (94) 99 10/16/17 22:44 99 30 10/16/17 20:35 99 30 10/16/17 20:09 100 30 10/16/17 20:00 69 10/16/17 20:00 30 10/16/17 19:50 97.7 67 16 134/69 (90) 98 10/16/17 16:58 99 30 10/16/17 16:00 99.0 71 16 129/71 (90) 100 10/16/17 16:00 30 Imaging Last Impressions Chest X-Ray 05/11/17 0000 Signed Impressions: Service Date/Time: Thursday, May 11, 2017 09:37 - CONCLUSION: 1. Small right pleural effusion. 2. Bilateral mid and lower lung zone predominant air space opacity could represent pulmonary edema given the appearance and distribution. Obdulio Sam MD Abdomen X-Ray 05/10/17 0000 Signed Impressions: Service Date/Time: Wednesday, May 10, 2017 22:08 - CONCLUSION: Tip of Dobbhoff catheter is in the antrum of the stomach. Sage Adler MD Gall Bladder Ultrasound 05/08/17 0000 Signed Impressions: Service Date/Time: May 08:23 - CONCLUSION: Focally unremarkable appearance of the gallbladder Obdulio Chun MD Abdomen/Pelvis CT 05/07/17 0000 Signed Impressions: Service Date/Time: Sunday, May 07, 2017 13:23 - CONCLUSION: 1. Large left pneumothorax. 2. Bilateral lower lobe consolidation and bilateral moderate size pleural effusions. 3. Significant soft tissue thickening of the right lateral chest wall and left gluteus muscle. 4. Mild ascites. The findings were called to Dr. Carney. Deangelo Zamora MD Head CT 05/06/17 0000 Signed Impressions: Service Date/Time: Saturday, May 06, 2017 04:18 - CONCLUSION: 1. Evolving large left-sided MCA territory infarct with minimally improved [id number] subfalcine shift. 2. No intercurrent hemorrhage or other acute abnormality. Alejo De La Vega MD Hip and Pelvis X-Ray 05/05/17 0000 Signed Impressions: Service Date/Time: Friday, May 05, 2017 10:59 - CONCLUSION: Left proximal femur trochanteric/subtrochanteric fracture lucency visualized. Postoperative changes. Choco Mustafa MD Chest CT 04/30/17 0000 Signed Impressions: Service Date/Time: Sunday, April 30, 2017 09:20 - CONCLUSION: 1. Bilateral pulmonary infiltrates more pronounced within the lower lobes with tiny bilateral pleural effusions. Material seen filling the lower lobe bronchi bilaterally either related to purulent material or perhaps mucus plugging. Deangelo Wren Jr., MD Carotid Artery Ultrasound 04/24/17 0000 Signed Impressions: Service Date/Time: April 09:45 - CONCLUSION: 1. No hemodynamically significant carotid artery stenosis. Arnie Middleton MD Hip X-Ray 04/21/17 0000 Signed Impressions: Service Date/Time: Friday, April 21, 2017 11:36 - CONCLUSION: Fluoroscopic images during placement of intramedullary siomara left femur. Benja Ramsey MD Physical Exam GENERAL: Thin built poorly nourished, NAD, on the vent SKIN: No generalized rash. Cool and dry. EYES: Pupils equal round and reactive. No scleral icterus. No injection or drainage. ENT: No nasal drainage, moist oral mucosa NECK: Trach site ok. CARDIOVASCULAR: Regular rate and rhythm without murmurs, gallops, or rubs. RESPIRATORY: Clear to auscultation. Breath sounds decreased R>L GASTROINTESTINAL: Abdomen soft, mildly distended. No tenderness. MUSCULOSKELETAL: Pedal edema. Generalized anasarca. NEUROLOGICAL:. Opens eyes, not tracking, Does not follow commands. Psych: could not be assessed. IV line sites with no e.o infection. Assessment & Plan Remarks Very MDR PSAE pneumonia (resistant to Avycaz and Zerbaxa and all other Cephalosporins and PCNs etc groups) E.coli and serratia in urine. Likely colonization. Likely mucus plugging. - S/P bronch - CXR better after bronch Left MCA infarction s/p neurological deficits. Recs: Continue Colistin nebs(stop date: 10/21/2017) Follow C/S. Monitor progress Will not start any new IV Abx since she looks better post bronch. Follow temps D/W RN Will sign off please call me back if any change in clinical condition or questions. Jane Saleh MD Oct 17, 2017 15:25
--- NOTE | 2017-10-17 17:46 | HHI.PR ---
Subjective Remarks 76 YO Frail female with RF,Trach,CVA no fever No Fever Tolerates CPAP Objective Vital Signs Vital Signs Date Time Temp Pulse Resp B/P (MAP) Pulse Ox O2 Delivery O2 Flow Rate FiO2 10/17/17 16:42 98 30 10/17/17 16:00 35 10/17/17 12:00 97.3 59 18 145/71 (95) 99 10/17/17 12:00 35 10/17/17 10:16 99 30 10/17/17 08:00 96.7 61 17 157/76 (103) 98 10/17/17 08:00 61 10/17/17 08:00 35 10/17/17 07:18 30 10/17/17 07:18 99 30 10/17/17 06:08 99 35 10/17/17 05:22 98 30 10/17/17 01:03 99 30 10/17/17 00:00 30 10/17/17 00:00 98.0 56 16 132/75 (94) 99 10/16/17 22:44 99 30 10/16/17 20:35 99 30 10/16/17 20:09 100 30 10/16/17 20:00 69 10/16/17 20:00 30 10/16/17 19:50 97.7 67 16 134/69 (90) 98 I/O 10/16/17 10/16/17 10/16/17 10/17/17 10/17/17 10/17/17 07:00 15:00 23:00 07:00 15:00 23:00 Intake Total 1122 ml 685 ml 663 ml Output Total 100 ml 125 ml Balance 1122 ml 585 ml 538 ml Tube Feeding 822 ml 485 ml 463 ml Other 300 ml 200 ml 200 ml Stool Total 100 ml 125 ml # Voids 4 3 3 # Bowel Movements 0 Result Diagram: 10/15/1738 10/15/17737 Objective Remarks GENERAL: Elderly female,NAD SKIN: Warm and dry. HEAD: Normocephalic. EYES: No scleral icterus. No injection or drainage. NECK: Supple, trachea midline. No JVD or lymphadenopathy. CARDIOVASCULAR: Regular rate and rhythm without murmurs, gallops, or rubs. RESPIRATORY: Breath sounds equal bilaterally. No accessory muscle use. GASTROINTESTINAL: Abdomen soft, non-tender, nondistended. MUSCULOSKELETAL: No cyanosis, or edema. BACK: Nontender without obvious deformity. No CVA tenderness. A/P Assessment and Plan RF,S/P Trach CVA Pneumonia Pleural effusion Pseudomonas Tracheobronchitis, Hyperkalemia Hypoxia PLAN: Vent support , cont CPAP Aerosol nebs Supplement 02 TF Abx per ID DW RT at BS Chris Rizo MD Oct 17, 2017 17:46
[2017-10-17 18:36] LABS: AUTOMATED NEUTROPHIL # 15.9 TH/MM3 (1.8-7.7); BASOPHIL # 0.2 TH/MM3 (0-0.2); BASOPHIL % 0.9 % (0.0-2.0); EOSINOPHIL # 0.5 TH/MM3 (0-0.4); EOSINOPHIL % 2.3 % (0.0-4.0); HEMATOCRIT 30.6 % (35.0-46.0); LYMPH % 12.8 % (9.0-44.0); LYMPHOCYTE # 2.5 TH/MM3 (1.0-4.8); MEAN CELL VOLUME 98.2 FL (80.0-100.0); MEAN CORPUSCULAR HEMOGLOBIN 32.2 PG (27.0-34.0); MEAN CORPUSCULAR HGB CONC 32.8 % (32.0-36.0); MONO % 3.8 % (0.0-8.0); MONOCYTE # 0.8 TH/MM3 (0-0.9); NEUT % 80.2 % (16.0-70.0); PLATELET COUNT 417 TH/MM3 (150-450); RED BLOOD COUNT 3.12 MIL/MM3 (4.00-5.30); RED CELL DISTRIBUTION WIDTH 16.1 % (11.6-17.2); WHITE BLOOD COUNT 19.8 TH/MM3 (4.0-11.0)
[2017-10-17 18:57] LABS: BICARBONATE 29.6 MEQ/L (21.0-32.0); CALCIUM 9.6 MG/DL (8.5-10.1); CREATININE 0.59 MG/DL (0.50-1.00)
[2017-10-17 19:30] LABS: BANDS 11 % (0-6); BASOPHILS 1 % (0-2); LYMPHOCYTES 9 % (9-44); METAMYELOCYTES 1 % (0-1); MONOCYTES 5 % (0-8); MYELOCYTES 4 % (0-0); NEUTROPHIL # MANUAL DIFF 15.8 TH/MM3 (1.8-7.7); POLYS (SEG NEUTROPHILS) 62 % (16-70); PROMYELOCYTES 2 % (0-0)
[2017-10-18] VITALS (12 sets, daily range): BP systolic 102–153; BP diastolic 58–71; PULSE 56–92; RESP 16–22; TEMP 97.3–98.9; O2SAT 95–99
[2017-10-18] MEDS: INSULIN NovoLIN REGULAR SUPPLEMENTAL SCALE SQ SCH ×5 (06:00→23:54)
[2017-10-18] MEDS: HEPARIN SODIUM - SQ 10,000 UNITS/ML VIAL SQ SCH ×3 (06:38→20:51)
[2017-10-18] MEDS: ARTIFICIAL TEARS OPTH SOLN 15 ML BTL EACH EYE SCH ×3 (06:39→21:00)
[2017-10-18] MEDS: hydrALAZINE HCL 10 MG TAB PEG SCH ×3 (06:39→20:50)
[2017-10-18] MEDS: CHLORHEXIDINE 0.12% (ORAL KIT) 15 ML CUP MT SCH ×2 (08:47→19:32)
[2017-10-18] MEDS: ASPIRIN 325 MG TAB DOBHOFF SCH ×2 (08:48→08:52)
[2017-10-18] MEDS: LACTOBACILLUS ACIDOPHILUS TAB PEG SCH ×2 (08:49→20:50)
[2017-10-18] MEDS: CHOLECALCIFEROL (VIT D3) 5000 UNIT CAP PEG SCH (08:49)
[2017-10-18] MEDS: LANSOPRAZOLE SOLUTAB 30 MG TAB NG SCH (08:49)
[2017-10-18] MEDS: SODIUM CHLORIDE 0.9% FLUSH 5 ML FLUSH IV FLUSH SCH ×2 (09:00→21:00)
[2017-10-18] MEDS: METOPROLOL TARTRATE 25 MG TAB PEG SCH ×2 (09:06→20:50)
[2017-10-18] MEDS: CALCIUM/VITAMIN D 250 MG/125 U TAB PEG SCH ×3 (09:06→17:05)
[2017-10-18] MEDS: DOXAZOSIN MESYLATE 1 MG TAB PEG SCH (09:07)
[2017-10-18] MEDS: RESP: COLISTIN 150 MG VIAL NEB SCH ×3 (09:16→23:52)
[2017-10-18 09:20] LABS: AUTOMATED NEUTROPHIL # 15.4 TH/MM3 (1.8-7.7); BASOPHIL # 0.1 TH/MM3 (0-0.2); BASOPHIL % 0.6 % (0.0-2.0); EOSINOPHIL # 0.5 TH/MM3 (0-0.4); EOSINOPHIL % 2.7 % (0.0-4.0); HEMATOCRIT 30.1 % (35.0-46.0); HEMOGLOBIN 9.9 GM/DL (11.6-15.3); LYMPHOCYTE # 2.5 TH/MM3 (1.0-4.8); MEAN CELL VOLUME 98.8 FL (80.0-100.0); MEAN CORPUSCULAR HEMOGLOBIN 32.5 PG (27.0-34.0); MEAN CORPUSCULAR HGB CONC 32.9 % (32.0-36.0); MEAN PLATELET VOLUME 9.3 FL (7.0-11.0); MONO % 4.4 % (0.0-8.0); MONOCYTE # 0.9 TH/MM3 (0-0.9); NEUT % 79.3 % (16.0-70.0); PLATELET COUNT 405 TH/MM3 (150-450); RED BLOOD COUNT 3.04 MIL/MM3 (4.00-5.30); RED CELL DISTRIBUTION WIDTH 15.7 % (11.6-17.2); WHITE BLOOD COUNT 19.4 TH/MM3 (4.0-11.0)
[2017-10-18 10:02] LABS: BANDS 26 % (0-6); LYMPHOCYTES 17 % (9-44); METAMYELOCYTES 4 % (0-1); MONOCYTES 5 % (0-8); NEUTROPHIL # MANUAL DIFF 14.9 TH/MM3 (1.8-7.7); POLYS (SEG NEUTROPHILS) 47 % (16-70); TOXIC GRANULATION 1+ (NORMAL)
[2017-10-18 10:19] LABS: BICARBONATE 27.8 MEQ/L (21.0-32.0); CALCIUM 9.5 MG/DL (8.5-10.1); CREATININE 0.56 MG/DL (0.50-1.00)
--- NOTE | 2017-10-18 11:53 | HHI.CCPN ---
Subjective Remarks/Hospital Course 04/24: 76-year-old female with a medical history significant for prior stroke, diabetes mellitus who was admitted with DKA and a hip fracture for which she underwent ORIF on 04/21. Patient developed altered mental status and was last noted to be okay around 5:30 AM. Subsequently there was a change in her mental status and she was noted to not be moving her right side for which stroke alert was called. Head CT showed large left MCA territory ischemic infarct with edema. Patient was transferred to the ICU by family medicine service in the critical care consult was requested. I evaluated the patient following arrival to the ICU. At that time she was laying in bed with her eyes open however not following commands and had a dense right hemiplegia. Patient was also evaluated by Dr. Malave from neurology. [facility] further discussed current event with patient's daughter following her arrival to the ICU. Per the daughter patient has been living with her since her stroke in 2014 and does ambulate however has been having problems with memory and incontinence as well as gait difficulties. She does not feel patient would want intubation or tracheostomy or PEG tube. 04/25: Patient remains encephalopathic, awake though not following commands consistently. Dense right hemiplegia persists. Appears to be awake enough to protect airway currently. Patient's daughter rescinded DNR and made a full code last evening. 04/26: Remains encephalopathic, not following commands. On Dobbhoff for tube feeds at 30 cc per hour. Had urinary retention and drained 2 L of urine after placing Moser catheter today. CT head done this morning with large left MCA territory infarct with left to right midline shift and significant cerebral edema. Hyperglycemia noted. Patient given mannitol earlier for increasing cerebral edema. 04/27: Remains encephalopathic, not following commands. On Dobbhoff tube feeds at 30 cc per hour. When into A. fib with RVR last night which responded with Lopressor 5 mg IV 1 dose. 04/28: Remains encephalopathic, arousable, not following commands. Moves left upper extremity spontaneously. Tolerating Dobbhoff tube feeds. Remains on nasal cannula. 04/29: Encephalopathic, eyes be arousable, moves left upper extremity spontaneously and occasionally opens eyes. Dense right hemiplegia and aphasia persists. On nasal cannula. Dobbhoff tube feeds being advanced. Patient was transfused 1 unit PRBCs yesterday. Urine culture with yeast from yesterday for which fluconazole being started. Had brief run of A. fib with RVR which improved with Lopressor IV, currently in sinus rhythm. 04/30: Worsening hypoxemic respiratory failure, currently on partial nonrebreather. Remains lethargic. WBC count increased from 14.6 today 20.7. Chest x-ray shows bilateral worsening infiltrates and small pleural effusions. Sodium 154, weight up by 8 KG. Albumin 1 mg Bumex 1. Also one dose of albumin. Remains in sinus tachycardia. Tmax 101.3 05/01: Patient was intubated yesterday for lack of airway protection, and severe hypoxemic respiratory failure from aspiration pneumonia involving multiple lobes. Patient is on the vent lethargic, no spontaneous eye opening. Chest x- ray remains unchanged. Remains intermittently febrile Tmax 101.3. WBC count improving 05/02: Remains critically ill with no improvement in mental status. Spiking fever of 101.7. Blood culture and sputum culture with staph aureus sputum also growing GNR, WBC count 22,000 now indicating worsening sepsis. Daughter still requesting aggressive care. Palliative care is following 05/03: S/P large area dominant hemisphere CVA. No neurological improvement. Now with pneumonia (infiltrate, fever, leukocytosis) and appropriate abx coverage. She will have a hard time surviving the hip fx, CVA, and pneumonia. Palliative Care needs to be a mainstay of our plan. 05/04: No improvement in neuro status. Sputum C&S allows us to narrow abx coverage to levaquin alone. Lungs remain quite congested. Enteral nutrition tolerated. 05/05: No improvement in neuro status. Moves left arm spontaneously. Flaccid right side. Unresponsive. Persistent mild hypoglycemia - will cut Levemir 50%. Abdomen more distended, check KUB. 05/06: CT head with massive left MCA infarction and > 1 cm shift in right handed woman. She opens eyes, does not track. 05/07: Patient open eyes. Attempts to respond. [place] speaking. Tolerating tube feeds. Positive bowel movement. Volume overloaded. 05/08: Tmax 99.4. Potassium being replaced. Ultrasound gallbladder currently pending. Transaminases are trending downward. Gently diurese. 05/09: Alk phos decreasing. Remains with good urine output. Neurological status not improving. 05/10: Fixed neuro deficit unchanged. Profound CVA. 05/11: Appears to track with eyes today. No improvement in motor function. Remains very edematous, diuretics doubled. 05/12: Continued thick secretions. Afebrile, leukocytosis resolved. 05/13: CT head with completed left MCA stroke, persistent edema and 5 mm shift away. Does not last long on SBTs - major decision now is trach/PEG. 05/14: Daughter has decided to proceed with trach and PEG. I have been pessimistic with her about chances for a meaningful recovery. 05/15: Plan for trach today. No change in neuro status. Still ventilator dependent. 05/16: Trach completed. Await PEG and disposition. 05/17: PEG placed 05/16. Start TFs today after nutrition consult. Work to place patient. 05/18: No improvement. Does open eyes, no focus or tracking. Completed large dominant (left) hemisphere CVA in right handed woman with severe deficit. Medicaid pending status, [facility] is following. 05/19: no improvements in neuro exam. ready for LTAC. will d/c moser and rectal tubes. 05/20: no changes or improvements. very difficult placement due to patient not [place] citizen. 05/21: no improvements. resting on vent overnight due to distress. 05/22: no neurologic changes. no improvements. attempted T-piece which failed after 10 minutes. 05/23: no improvements. poor prognosis. poor neuro exam. still failing weaning trials. 05/24: no improvements or changes. still failing t-piece trials. 05/25: No acute changes of improvement overnight. Failed CPAP due to apnea, tried again currently tolerating. Neurological exam unchanged. 05/26: No improvement in neurological function. 05/27: Patient has required Moser catheter because of breakdown of skin on upper thighs and groin. Urine has become infected, will treat. 05/28: Some drainage from around trach (placed 2 weeks ago). Will change out trach tube and inspect neck wound. I&O straight cath q6h order entered 05/17. 05/29: No improvement, remains obtunded. Failed CPAP trials yesterday and again today due to apnea. Moser placed due to persistent urinary retention 05/30: Obtunded, unresponsive. Failed SBTs, remains ventilator dependent. 05/31: Patient continues to fail SBT failed yesterday due to apnea. Neuro exam remains unchanged. 06/01: No acute changes overnight, 06/02: no changes. ekg done overnight for ? EKG changes seen on telemetry which were not visualized on EKG. 06/03: no improvements or changes. had long conversation with daughter yesterday. only facility which would accept patient is in [place] and daughter is refusing to allow patient to go there because it is "too far away." Daughter continues to push for aggressive care despite no improvements, and resistant to Hospice. Patient does not need acute inpatient therapy but lacks funding for appropriate disposition. 06/04: No acute events overnight, failed SBT due to apnea. 06/05: No acute events, continues to fail spontaneous breathing trials. Unable to wean 06/06 Currently tolerating CPAP. Will attempt TP today up to 4 hours. No acute events overnight 06/07: Tolerating trach collar/T-piece. Transfer soon. 06/08: Awaiting transfer. 06/09: Remains ventilator dependent. No improvement in neurological function. 06/10: No improvement. Daughter is not attending preplanned meetings to discuss disposition 06/12: Afebrile. Neurologically stable and unchanged. Noted sodium 135. Adding sodium chloride tablets 1 today. Not on free water.. Tolerating tube feeds at goal 45 cc an hour. 06/13: No improvement in neurological function. 06/14: No improvement. Fluid balance correct. Gas exchange acceptable. 06/15: No improvement. Obtunded and unresponsive. 06/16: no improvements in mental status. KUB overnight with dilated small bowel loops. given methylnaltrexone and erythromycin. today abdomen is soft and tolerating tube feeds. 06/17: tolerated t-piece x 6 hours yesterday. rested on cpap overnight. no changes in encephalopathy. 06/18: Currently on ventilator overnight. Multiple bowel movements. Thick yellow secretions noted in ventilator circuit. Opens eyes. 06/19: Afebrile. Tolerating stretcher chair yesterday on PSV. Tolerating tube feeding. Neurologically unchanged. 06/20: Afebrile. Resting in bed in no acute distress in sitting position. Currently on ventilator set sitting. Tolerated stretcher chair/PSV trial 6 hours yesterday. Neurologically unchanged. 06/21: Tmax 100.8. Patient with copious thick yellow secretions. Tolerating tube feeds. Positive bowel movement. Lasted only 1 hour PSV yesterday 06/22: Tmax 99.9. Continues to have thick secretions. Tolerating tube feeding. Positive BM. 06/23: Afebrile. Continues to have thick tracheal secretions from tracheostomy site. Tolerating tube feeding. 3 bowels movements. Opens eyes to stimulation. Stares at you but does not follow commands. 06/24: Remains encephalopathic, on mechanical ventilation via tracheostomy. Tolerating PEG feeds 06/25: Remains encephalopathic on mechanical ventilation. Tolerated C Pap +5 with pressure support +10 all day yesterday. Tolerating PEG feeds. 06/26: No improvement.Vent dependent still. 06/27: Remains encephalopathic, on mech vent via trach. Daily CPAP trials. 06/28: Unable to wean from ventilator. 06/29: Neurologically unchanged. Remains on mechanical ventilation. Daily C Pap trials ongoing. 06/30: Remains encephalopathic. On C Pap overnight. Tolerating tube feeds. 07/01: No change in neurologic status. On mechanical ventilation via tracheostomy. Tolerating tube feeds. 07/02: Remains encephalopathic. No change in neurologic status. On mechanical ventilation via tracheostomy. Daily C Pap trials ongoing. 07/03: Occasional spontaneous eye opening however remains encephalopathic. On mechanical ventilation via tracheostomy. 07/04: Tmax 99.2. Multiple bowel movements overnight. Tolerating tube feeds. On T piece trial at 5 L since noon yesterday. Otherwise neurologically unchanged. Daughter encouraged by movement of left leg. 07/05: Currently resting in bed on T piece 36 hours. Tolerates chair. No changes neurologically. Positive BM's. Tolerating her tube feeding. 07/06: Continue T-piece trials, if tolerated consider transfer to floor. 07/07: Extended T-piece trial. Plan transfer to floor. 07/09: Patient is experiencing apnea episodes and had to be placed back on higher FiO2.. Hold transfer. 07/10: X-ray left hip shows good anatomic alignment. Still requiring elevated FiO2. 07/11: Prealbumin 20, nutritional support is adequate and status is stable. No neurological improvement. 07/12: No improvement in neurological function. Continued acceptable respiratory effort. 07/13: No change. 10/03/17 Dr. Rizo notified tower attendant that patient would be transferring to ICU. Patient is known to [facility] service. She was originally admitted 04/20/17 after a fall with hip fracture resulting in ORIF 04/21. Postoperatively, she developed large R MCA stroke with midline shift. Her neurologic condition remained poor and she underwent trach 05/15/17 and PEG 05/16/17. She was eventually transitioned to Tpiece and transferred to floor. She has suffered from multiple infectious complications due to her persistent bedfast and trach dependent state. 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 She has been on trach collar with worsening hypoxemia therefore she is transferred to [facility]. CXR from yesterday demonstrates bilateral pulmonary infiltrates. She has also had hyperkalemia today up to 6.7 which has been treated with kayexalate, down to 6. 2: improvement in air space disease with diuresis and bronch yesterday. no overall improvements in chronic poor prognosis. unlikely to survive this hospital stay. daughter has poor insight into the gravity of her mother's medical condition. she will not recover meaningfully. 10/05: continuing to clinically improve from a respiratory standpoint. no improvements in overall poor function. off vent on t-piece today. can likely transition out of ICU tomorrow. 10/06 No events overnight. Remains on ventilator via trach. Afebrile. 10/07 No events overnight. Afebrile. 10/08 Patient is on ventilator via trach. afebrile. 10/09 No events overnight. Tolerating tube feeds. Afebrile. 10/10 Patient is on ventilators via trach. 10/11: Nursing reported patient intermittently follow commands today. BUN slightly elevated. Patient tolerating tube feeding 10/12: The patient tolerated CPAP for approximately 6 hours yesterday. No acute changes overnight. No neurological change in status. 10/13 No events overnight. Afebrile. 10/14 Patient remains on ventilator via trach. Afebrile. Didn't tolerate CPAP trials earlier today. Subjective 10/15: no changes. patient remains on the ventilator. unable to wean. 10/16: no improvements. no changes. PSV trials ongoing, not ready for SBT. 10/17 No events overnight. On CPAP. 10/18 Patient remains on ventilator via trach tolerating CPAP trials. Objective Vital Signs Date Time Temp Pulse Resp B/P (MAP) Pulse Ox O2 Delivery O2 Flow Rate FiO2 10/18/17 09:17 95 30 10/18/17 00:00 98.0 56 18 145/70 (95) Intake and Output 10/18/17 10/18/17 10/19/17 08:00 16:00 00:00 Intake Total 1449 ml Output Total 1075 ml Balance 374 ml Result Diagram: 10/18/17 0815 10/18/17 0815 Other Results Laboratory Tests Test 10/17/17 18:04 10/18/17 08:15 White Blood Count 19.8 TH/MM3 19.4 TH/MM3 Red Blood Count 3.12 MIL/MM3 3.04 MIL/MM3 Hemoglobin 10.0 GM/DL 9.9 GM/DL Hematocrit 30.6 % 30.1 % Mean Corpuscular Volume 98.2 FL 98.8 FL Mean Corpuscular Hemoglobin 32.2 PG 32.5 PG Mean Corpuscular Hemoglobin Concent 32.8 % 32.9 % Red Cell Distribution Width 16.1 % 15.7 % Platelet Count 417 TH/MM3 405 TH/MM3 Mean Platelet Volume 9.0 FL 9.3 FL Neutrophils (%) (Auto) 80.2 % 79.3 % Lymphocytes (%) (Auto) 12.8 % 13.0 % Monocytes (%) (Auto) 3.8 % 4.4 % Eosinophils (%) (Auto) 2.3 % 2.7 % Basophils (%) (Auto) 0.9 % 0.6 % Neutrophils # (Auto) 15.9 TH/MM3 15.4 TH/MM3 Lymphocytes # (Auto) 2.5 TH/MM3 2.5 TH/MM3 Monocytes # (Auto) 0.8 TH/MM3 0.9 TH/MM3 Eosinophils # (Auto) 0.5 TH/MM3 0.5 TH/MM3 Basophils # (Auto) 0.2 TH/MM3 0.1 TH/MM3 CBC Comment AUTO DIFF AUTO DIFF Differential Total Cells Counted 100 100 Neutrophils % (Manual) 62 % 47 % Band Neutrophils % 11 % 26 % Lymphocytes % 9 % 17 % Monocytes % 5 % 5 % Eosinophils % 5 % 1 % Basophils % 1 % Neutrophils # (Manual) 15.8 TH/MM3 14.9 TH/MM3 Metamyelocytes 1 % 4 % Myelocytes 4 % Promyelocytes 2 % Differential Comment FINAL DIFF MANUAL FINAL DIFF MANUAL Platelet Estimate NORMAL HIGH Platelet Morphology Comment NORMAL NORMAL Blood Urea Nitrogen 69 MG/DL 68 MG/DL Creatinine 0.59 MG/DL 0.56 MG/DL Random Glucose 118 MG/DL 95 MG/DL Calcium Level 9.6 MG/DL 9.5 MG/DL Sodium Level 149 MEQ/L 149 MEQ/L Potassium Level 5.0 MEQ/L 4.8 MEQ/L Chloride Level 114 MEQ/L 114 MEQ/L Carbon Dioxide Level 29.6 MEQ/L 27.8 MEQ/L Anion Gap 5 MEQ/L 7 MEQ/L Estimat Glomerular Filtration Rate 99 ML/MIN 106 ML/MIN Toxic Granulation 1+ Imaging Last Impressions Chest X-Ray 10/15/17 0000 Signed Impressions: Service Date/Time: Sunday, October 15, 2017 11:45 - CONCLUSION: 1. Heart size is borderline with mild interstitial prominence characteristic of some degree of vascular congestion or volume overload. No lanny failure. 2. Atelectatic changes above the left hemidiaphragm with possible small left- sided effusion. Ananda Oneill MD Abdomen X-Ray 10/10/17 0000 Signed Impressions: Service Date/Time: Tuesday, October 10, 2017 11:35 - CONCLUSION: No dilated bowel loops. Benja Ramsey MD Thoracentesis 08/05/17 1535 Signed Impressions: Service Date/Time: Saturday, August 05, 2017 16:08 - CONCLUSION: Uncomplicated CT-guided thoracentesis. Sage Adler MD Chest Ultrasound 08/02/17 0000 Signed Impressions: Service Date/Time: Tuesday, August 01, 2017 22:06 - CONCLUSION: 1. Moderate right pleural effusion, as above. Alejo De La Vega MD Hip and Pelvis X-Ray 07/09/17 0000 Signed Impressions: Service Date/Time: Sunday, July 09, 2017 14:04 - CONCLUSION: Anatomic alignment. Ricardo Middleton MD FACR Liver Ultrasound 06/19/17 0000 Signed Impressions: Service Date/Time: June 13:20 - CONCLUSION: 1. Mildly increased echotexture of the liver characteristic of hepatic steatosis. 2. Gallbladder sludge. Obdulio Sam MD Head CT 05/15/17 0000 Signed Impressions: Service Date/Time: May 19:59 - CONCLUSION: 1. 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 2. No bleed or new/acute infarct. Obdulio Simms MD Gall Bladder Ultrasound 05/08/17 0000 Signed Impressions: Service Date/Time: May 08:23 - CONCLUSION: Focally unremarkable appearance of the gallbladder Obdulio Chun MD Abdomen/Pelvis CT 05/07/17 0000 Signed Impressions: Service Date/Time: Sunday, May 07, 2017 13:23 - CONCLUSION: 1. Large left pneumothorax. 2. Bilateral lower lobe consolidation and bilateral moderate size pleural effusions. 3. Significant soft tissue thickening of the right lateral chest wall and left gluteus muscle. 4. Mild ascites. The findings were called to Dr. Carney. Deangelo Zamora MD Chest CT 04/30/17 0000 Signed Impressions: Service Date/Time: Sunday, April 30, 2017 09:20 - CONCLUSION: 1. Bilateral pulmonary infiltrates more pronounced within the lower lobes with tiny bilateral pleural effusions. Material seen filling the lower lobe bronchi bilaterally either related to purulent material or perhaps mucus plugging. Deangelo Wren Jr., MD Carotid Artery Ultrasound 04/24/17 0000 Signed Impressions: Service Date/Time: April 09:45 - CONCLUSION: 1. No hemodynamically significant carotid artery stenosis. Arnie Middleton MD Hip X-Ray 04/21/17 0000 Signed Impressions: Service Date/Time: Friday, April 21, 2017 11:36 - CONCLUSION: Fluoroscopic images during placement of intramedullary siomara left femur. Benja Ramsey MD Objective Remarks GENERAL: Elderly female, laying in bed on mechanical ventilation SKIN: Warm and dry, adequately perfused. HEAD: Atraumatic. Normocephalic. mucous membranes moist. NECK: 8.[address] Trachea midline. No JVD. CARDIOVASCULAR: Regular rate and rhythm RESPIRATORY: no accessory muscle use. prvc, 30% fio2. GASTROINTESTINAL: Abdomen soft, non-tender, nondistended. PEG in place with tube feeds running, site benign appearing. MUSCULOSKELETAL: Extremities without clubbing, cyanosis, or edema. No obvious deformities. NEUROLOGICAL: Eyes open spontaneously, does not appear to track. L gaze preference. R hemiparesis. Localizes with LUE. Very slight withdrawal of LLE to noxious stimuli. Not following commands A/P Assessment and Plan Assessment: 77yF with severe encephalopathy secondary to large MCA CVA, without meaningful improvements over many months. family continues to press for aggressive care. Continue weaning attempts to separate from mechanical ventilation. poor prognosis for any meaningful recovery at this point. Neuro/Psych: Left MCA CVA - 5.5 mm of [id number] subfalcine herniation, diagnosed 04/24. Persistent right-sided hemiparesis. Prior History of stroke Continue Aspirin 325 mg by tube daily. Stroke occurred 04/24/17. Patient was not a candidate for thrombolysis per discussion with neurology and radiology at that time. Repeat head CT 05/15 showed slight improvement in the midline shift now 5.5 mm and mass effect Neurosurgery consulted 04/30- Dr. López, recommended conservative management, now signed off. Neurology Dr. Malave has followed previously, signed off. Cardiovascular: Hypertension Norvasc 10 mg po daily, Cardura 1 mg peg daily, metoprolol 12.5 peg bid, hydralazine 10 mg per per peg q8 hours. clonidine prn SBP >160 Echo showed EF 25-30%, Grade I diastolic disfunction Pulmonary: Chronic Tracheostomy Now recurrent Acute hypoxemic respiratory failure Acute hypoxic respiratory failure - aspiration possible HCAP - previous episode resolved. Large left pneumothorax status post #10 Turkmen chest tube 05/07 - resolved.Chest tube d/c'd 05/12/17 R pleural effusion - Continue with vent support keep sat >92% Ipratropium/albuterol aerosols every 6 hours with albuterol aerosols every 2 hours Pulm toilet, trach care SBT daily as gato- failing daily. Pulm is following GI/liver: Elevated transaminases, resolved Severe protein calorie malnutrition Small bowel ileus- resolved Hepatitis C antibody positive with negative genotype/viral load Hepatic steatosis Currently on PEG tube feeding with Glucerna 1.5 goal 45 cc an hour. KUB abdomen 10/10: No dilated bowel loops Beneprotein tid. Lansoprazole 30 mg daily for GI regimen Endocrine: Diabetes mellitus SSI high scale-dose every 6 hours , Levemir 7u Q12 /Renal/FEN: Monitor renal function. I/O's, electrolytes replacement as needed Place on Free water 250ml Q8 monitor sodium level. Heme: Chronic Rivaroxaban use prior to admission Leukocytosis Normocytic anemia Follow CBC and coags. ID: MDR Pseudomonas aeruginosa and pneumonia (HCAP) MSSA bacteremia - resolved. Serratia/staph aureus pneumonia - resolved. C glabrata UTI - resolved. Citrobacter UTI - resolved. Serratia/MSSA sputum VAP resolved Current relevant cultures: 09/25/17 -sputum culture - Pseudomonas aeruginosa, multidrug resistant ( including Zerbaxa and Avycaz resistance). On Colistin nebs started 09/30 Per ID, Dr. Ranjan Saleh Check UA and sputum cx Prior cultures: Urine culture 04/26/17 sofie glabrata Blood culture 04/29/17 1 out of 4 bottles staph aureus Sputum culture 04/30/17 MSSA and Serratia. urine 05/07-> Serratia, treated. Urine 05/25: Citrobacter MSK: Left Intertroch Hip Fx s/p IMN 04/21/17. Vitamin D deficiency Sacral decubitus ulcer, Previously stage III, healing. Continue calcium vitamin D 250/125 one tablet 3x a day and cholecalciferol 5000 units daily. PT/OT evaluate and treat Maxisorb every 3 days/dressing changes every 3 days per wound care Continue Beneprotein one packet 3x a day Prophylaxis: SCDs. Heparin 5000 subcut q8 hours. GI - lansoprazole 30 mg by PEG tube daily ACCESS: Kristel Bailon MD Oct 18, 2017 11:53
[2017-10-18] MEDS: INSULIN DETEMIR 100 UNITS/ML VIAL SQ SCH ×3 (12:00→23:54)
[2017-10-18] MEDS: FREE WATER G-TUBE SCH ×2 (14:00→21:01)
[2017-10-18 19:34] LABS: BACTERIA, URINE MANY /hpf; BILIRUBIN, URINE NEG (NEG); BLOOD, URINE SMALL (NEG); GLUCOSE,URINE NEG (NEG); KETONE, URINE NEG (NEG); NITRITE,URINE NEG (NEG); PH, URINE 7.5 (5.0-8.5); SQUAMOUS EPITHELIAL CELL URINE <1 /hpf (0-5); URINE COLOR YELLOW (YELLW/STRAW); URINE LEUKOCYTE ESTERASE LARGE (NEG); WHITE BLOOD CELL CLUMPS MANY
--- NOTE | 2017-10-18 19:51 | HHI.PR ---
Addendum to Inpatient Note Additional Information pt seen around 1930 today full note to follow worsening WBC, bandemia on vent 5/30% On exam obtunded CTA distended abd Incont of liquid brown stool 200 UA abn Urine , sputum clx P chk c,diff dw Kayleigh Guillaume MD Oct 18, 2017 19:51
--- NOTE | 2017-10-18 23:51 | HHI.IDPN ---
Subjective Subjective Remarks Chart reviewed X cover for Dr Saleh is a 76 y/o CF with PMHx of stroke, diabetes mellitus who was admitted with DKA and a hip fracture for which she underwent ORIF on 04/21. While in hospital recovering, patient developed altered mental status. Due to worsening mental status a stroke alert was called. Head CT showed large left MCA territory ischemic infarct with edema. Patient was transferred to the ICU by family medicine service and critical care consult was requested. At the time of evaluation in [facility], patient was opening her eyes however not following commands and had a dense right hemiplegia. Patient was also evaluated by Dr. Malave from neurology. At baseline, the patient lives with her daughter since her stroke in 2014 and does ambulate however has been having problems with memory and incontinence as well as gait difficulties. She does not feel patient would want intubation or tracheostomy or PEG tube. On 05/01/17 patient was intubated for severe hypoxemic respiratory failure from aspiration pneumonia. She also had a temp of 101 F. Blood culture and sputum culture with staph aureus sputum also growing GNR, WBC count 22,000 now indicating worsening sepsis. 05/06/[address] head with massive left MCA infarction and > 1 cm shift in right handed woman. Meanwhile patient is also being treated for C.glabrata UTI. At the time of my evaluation, patient is in [facility] on ventilator. She spontaneously opens eyes, did not follow commands for me. She underwent a CT A/ P which shows a left side pneumothorax. is placing a pigtail chest tube. She has a moser in place but no central line. ID is reconsulted for evaluation and Mment of Right side pneumonia with possible collapse lung, very MDR PSAE. pt seen around 1930 today today pt has worsening WBC, bandemia on vent PEEP 5, FiO2 30% afebrile stool 200 cc, liquid Antibiotics colistine nebs Lines Line sites with no e.o infection. Past Medical History reviewed Allergies: Coded Allergies: No Known Allergies (Unverified , 04/20/17) Objective . Vital Signs Date Time Temp Pulse Resp B/P (MAP) Pulse Ox O2 Delivery O2 Flow Rate FiO2 10/18/17 20:59 95 30 10/18/17 20:00 98.8 88 16 102/58 (73) 98 10/18/17 20:00 30 10/18/17 20:00 88 10/18/17 16:19 99 30 10/18/17 16:00 98.9 61 16 126/62 (83) 98 10/18/17 16:00 30 10/18/17 12:16 97 30 10/18/17 12:00 30 10/18/17 12:00 98.5 92 22 108/60 (76) 96 10/18/17 09:17 95 30 10/18/17 09:17 30 10/18/17 08:00 30 10/18/17 08:00 73 10/18/17 08:00 97.3 61 16 153/71 (98) 95 10/18/17 04:59 98 30 10/18/17 04:21 98 30 10/18/17 04:00 30 10/18/17 00:00 98.0 56 18 145/70 (95) 98 10/18/17 00:00 30 10/18/17 10/18/17 10/19/17 15:00 23:00 07:00 Intake Total 856 ml Output Total 900 ml Balance -44 ml Tube Feeding 656 ml Other 200 ml Output Urine Total 600 ml Stool Total 300 ml . Laboratory Tests Test 10/17/17 18:04 10/18/17 08:15 White Blood Count 19.8 TH/MM3 19.4 TH/MM3 Red Blood Count 3.12 MIL/MM3 3.04 MIL/MM3 Hemoglobin 10.0 GM/DL 9.9 GM/DL Hematocrit 30.6 % 30.1 % Mean Corpuscular Volume 98.2 FL 98.8 FL Mean Corpuscular Hemoglobin 32.2 PG 32.5 PG Mean Corpuscular Hemoglobin Concent 32.8 % 32.9 % Red Cell Distribution Width 16.1 % 15.7 % Platelet Count 417 TH/MM3 405 TH/MM3 Mean Platelet Volume 9.0 FL 9.3 FL Neutrophils (%) (Auto) 80.2 % 79.3 % Lymphocytes (%) (Auto) 12.8 % 13.0 % Monocytes (%) (Auto) 3.8 % 4.4 % Eosinophils (%) (Auto) 2.3 % 2.7 % Basophils (%) (Auto) 0.9 % 0.6 % Neutrophils # (Auto) 15.9 TH/MM3 15.4 TH/MM3 Lymphocytes # (Auto) 2.5 TH/MM3 2.5 TH/MM3 Monocytes # (Auto) 0.8 TH/MM3 0.9 TH/MM3 Eosinophils # (Auto) 0.5 TH/MM3 0.5 TH/MM3 Basophils # (Auto) 0.2 TH/MM3 0.1 TH/MM3 CBC Comment AUTO DIFF AUTO DIFF Differential Total Cells Counted 100 100 Neutrophils % (Manual) 62 % 47 % Band Neutrophils % 11 % 26 % Lymphocytes % 9 % 17 % Monocytes % 5 % 5 % Eosinophils % 5 % 1 % Basophils % 1 % Neutrophils # (Manual) 15.8 TH/MM3 14.9 TH/MM3 Metamyelocytes 1 % 4 % Myelocytes 4 % Promyelocytes 2 % Differential Comment FINAL DIFF MANUAL FINAL DIFF MANUAL Platelet Estimate NORMAL HIGH Platelet Morphology Comment NORMAL NORMAL Toxic Granulation 1+ Laboratory Tests Test 10/17/17 18:04 10/18/17 08:15 Blood Urea Nitrogen 69 MG/DL 68 MG/DL Creatinine 0.59 MG/DL 0.56 MG/DL Random Glucose 118 MG/DL 95 MG/DL Calcium Level 9.6 MG/DL 9.5 MG/DL Sodium Level 149 MEQ/L 149 MEQ/L Potassium Level 5.0 MEQ/L 4.8 MEQ/L Chloride Level 114 MEQ/L 114 MEQ/L Carbon Dioxide Level 29.6 MEQ/L 27.8 MEQ/L Anion Gap 5 MEQ/L 7 MEQ/L Estimat Glomerular Filtration Rate 99 ML/MIN 106 ML/MIN Microbiology Date/Time Source Procedure Growth Status 10/18/17 16:30 Sputum Endotracheal Gram Stain Pending Received 10/18/17 16:30 Sputum Endotracheal Sputum Culture Pending Received 10/18/17 18:00 Urine Catheterized Urine Urine Culture Pending Received Imaging Last Impressions Chest X-Ray 10/15/17 0000 Signed Impressions: Service Date/Time: Sunday, October 15, 2017 11:45 - CONCLUSION: 1. Heart size is borderline with mild interstitial prominence characteristic of some degree of vascular congestion or volume overload. No lanny failure. 2. Atelectatic changes above the left hemidiaphragm with possible small left- sided effusion. Ananda Oneill MD Abdomen X-Ray 10/10/17 0000 Signed Impressions: Service Date/Time: Tuesday, October 10, 2017 11:35 - CONCLUSION: No dilated bowel loops. Benja Ramsey MD Thoracentesis 08/05/17 0871 Signed Impressions: Service Date/Time: Saturday, August 05, 2017 16:08 - CONCLUSION: Uncomplicated CT-guided thoracentesis. Sage Adler MD Chest Ultrasound 08/02/17 0000 Signed Impressions: Service Date/Time: Tuesday, August 01, 2017 22:06 - CONCLUSION: 1. Moderate right pleural effusion, as above. Alejo De La Vega MD Hip and Pelvis X-Ray 07/09/17 0000 Signed Impressions: Service Date/Time: Sunday, July 09, 2017 14:04 - CONCLUSION: Anatomic alignment. Ricardo Middleton MD FACR Liver Ultrasound 06/19/17 0000 Signed Impressions: Service Date/Time: June 13:20 - CONCLUSION: 1. Mildly increased echotexture of the liver characteristic of hepatic steatosis. 2. Gallbladder sludge. Obdulio Sam MD Head CT 05/15/17 0000 Signed Impressions: Service Date/Time: May 19:59 - CONCLUSION: 1. 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 2. No bleed or new/acute infarct. Obdulio Simms MD Gall Bladder Ultrasound 05/08/17 0000 Signed Impressions: Service Date/Time: May 08:23 - CONCLUSION: Focally unremarkable appearance of the gallbladder Obdulio Chun MD Abdomen/Pelvis CT 05/07/17 0000 Signed Impressions: Service Date/Time: Sunday, May 07, 2017 13:23 - CONCLUSION: 1. Large left pneumothorax. 2. Bilateral lower lobe consolidation and bilateral moderate size pleural effusions. 3. Significant soft tissue thickening of the right lateral chest wall and left gluteus muscle. 4. Mild ascites. The findings were called to Dr. Carney. Deangelo Zamora MD Chest CT 04/30/17 0000 Signed Impressions: Service Date/Time: Sunday, April 30, 2017 09:20 - CONCLUSION: 1. Bilateral pulmonary infiltrates more pronounced within the lower lobes with tiny bilateral pleural effusions. Material seen filling the lower lobe bronchi bilaterally either related to purulent material or perhaps mucus plugging. Deangelo Wren Jr., MD Carotid Artery Ultrasound 04/24/17 0000 Signed Impressions: Service Date/Time: April 09:45 - CONCLUSION: 1. No hemodynamically significant carotid artery stenosis. Arnie Middleton MD Hip X-Ray 04/21/17 0000 Signed Impressions: Service Date/Time: Friday, April 21, 2017 11:36 - CONCLUSION: Fluoroscopic images during placement of intramedullary siomara left femur. Benja Ramsey MD Physical Exam GENERAL: Thin built poorly nourished, NAD, on the vent SKIN: No generalized rash. Cool and dry. EYES: Pupils equal round and reactive. No scleral icterus. No injection or drainage. ENT: No nasal drainage, moist oral mucosa NECK: Trach site ok. CARDIOVASCULAR: Regular rate and rhythm without murmurs, gallops, or rubs. RESPIRATORY: Clear to auscultation. Breath sounds decreased R>L GASTROINTESTINAL: Abdomen soft, y distended. No tenderness. Incont of liquid brown stool MUSCULOSKELETAL: Pedal edema. Generalized anasarca. NEUROLOGICAL:. Obtunded , not tracking, Does not follow commands. Psych: could not be assessed. IV line sites with no e.o infection. Assessment & Plan Remarks Very MDR PSAE pneumonia (resistant to Avycaz and Zerbaxa and all other Cephalosporins and PCNs etc groups) E.coli and serratia in urine. Likely colonization. Likely mucus plugging. - S/P bronch - CXR better after bronch Left MCA infarction s/p neurological deficits. Worsening leukocytosis, bandemia ' - abx associated diarrhea, abn UA, r/o UTI Recs: Continue Colistin nebs(stop date: 10/21/2017) Follow C/S. Monitor progress Will not start any new IV Abx since she looks better post bronch. Follow temps D/W RN Urine , sputum clx P chk c,diff dw Kayleigh Guillaume MD Oct 18, 2017 23:51
[2017-10-19] VITALS (14 sets, daily range): BP systolic 106–159; BP diastolic 53–73; PULSE 55–79; RESP 16–20; TEMP 97.7–98.9; O2SAT 97–100
[2017-10-19] MEDS: HEPARIN SODIUM - SQ 10,000 UNITS/ML VIAL SQ SCH ×3 (05:27→19:37)
[2017-10-19] MEDS: ARTIFICIAL TEARS OPTH SOLN 15 ML BTL EACH EYE SCH ×3 (05:27→19:40)
[2017-10-19] MEDS: FREE WATER G-TUBE SCH ×3 (05:27→19:38)
[2017-10-19] MEDS: hydrALAZINE HCL 10 MG TAB PEG SCH ×3 (05:27→19:37)
[2017-10-19] MEDS: INSULIN NovoLIN REGULAR SUPPLEMENTAL SCALE SQ SCH ×4 (05:49→23:36)
[2017-10-19 07:40] LABS: AUTOMATED NEUTROPHIL # 10.9 TH/MM3 (1.8-7.7); BASOPHIL # 0.1 TH/MM3 (0-0.2); BASOPHIL % 0.9 % (0.0-2.0); EOSINOPHIL # 0.7 TH/MM3 (0-0.4); EOSINOPHIL % 4.2 % (0.0-4.0); HEMATOCRIT 27.2 % (35.0-46.0); HEMOGLOBIN 9.2 GM/DL (11.6-15.3); LYMPH % 18.1 % (9.0-44.0); LYMPHOCYTE # 2.8 TH/MM3 (1.0-4.8); MEAN CELL VOLUME 97.2 FL (80.0-100.0); MEAN CORPUSCULAR HEMOGLOBIN 32.7 PG (27.0-34.0); MEAN CORPUSCULAR HGB CONC 33.6 % (32.0-36.0); MEAN PLATELET VOLUME 9.3 FL (7.0-11.0); MONO % 6.1 % (0.0-8.0); MONOCYTE # 0.9 TH/MM3 (0-0.9); NEUT % 70.7 % (16.0-70.0); PLATELET COUNT 360 TH/MM3 (150-450); WHITE BLOOD COUNT 15.4 TH/MM3 (4.0-11.0)
[2017-10-19] MEDS: CHLORHEXIDINE 0.12% (ORAL KIT) 15 ML CUP MT SCH ×2 (08:00→19:40)
[2017-10-19] MEDS: CHOLECALCIFEROL (VIT D3) 5000 UNIT CAP PEG SCH (08:18)
[2017-10-19] MEDS: LACTOBACILLUS ACIDOPHILUS TAB PEG SCH ×2 (08:18→19:37)
[2017-10-19] MEDS: DOXAZOSIN MESYLATE 1 MG TAB PEG SCH (08:19)
[2017-10-19] MEDS: CALCIUM/VITAMIN D 250 MG/125 U TAB PEG SCH ×3 (08:19→17:51)
[2017-10-19] MEDS: LANSOPRAZOLE SOLUTAB 30 MG TAB NG SCH (08:19)
[2017-10-19] MEDS: SODIUM CHLORIDE 0.9% FLUSH 5 ML FLUSH IV FLUSH SCH ×2 (08:19→19:40)
[2017-10-19] MEDS: ASPIRIN 325 MG TAB DOBHOFF SCH (08:19)
[2017-10-19] MEDS: METOPROLOL TARTRATE 25 MG TAB PEG SCH ×2 (08:21→19:37)
[2017-10-19] MEDS: RESP: COLISTIN 150 MG VIAL NEB SCH ×3 (09:24→22:09)
[2017-10-19 11:26] LABS: BANDS 12 % (0-6); LYMPHOCYTES 14 % (9-44); METAMYELOCYTES 7 % (0-1); MONOCYTES 6 % (0-8); NEUTROPHIL # MANUAL DIFF 12.3 TH/MM3 (1.8-7.7); POLYS (SEG NEUTROPHILS) 61 % (16-70)
[2017-10-19 11:42] LABS: CALCIUM 9.3 MG/DL (8.5-10.1); CREATININE 0.62 MG/DL (0.50-1.00)
[2017-10-19] MEDS: INSULIN DETEMIR 100 UNITS/ML VIAL SQ SCH ×2 (11:50→23:37)
--- NOTE | 2017-10-19 11:53 | HHI.CCPN ---
Subjective Remarks/Hospital Course 04/24: 76-year-old female with a medical history significant for prior stroke, diabetes mellitus who was admitted with DKA and a hip fracture for which she underwent ORIF on 04/21. Patient developed altered mental status and was last noted to be okay around 5:30 AM. Subsequently there was a change in her mental status and she was noted to not be moving her right side for which stroke alert was called. Head CT showed large left MCA territory ischemic infarct with edema. Patient was transferred to the ICU by family medicine service in the critical care consult was requested. I evaluated the patient following arrival to the ICU. At that time she was laying in bed with her eyes open however not following commands and had a dense right hemiplegia. Patient was also evaluated by Dr. Malave from neurology. [facility] further discussed current event with patient's daughter following her arrival to the ICU. Per the daughter patient has been living with her since her stroke in 2014 and does ambulate however has been having problems with memory and incontinence as well as gait difficulties. She does not feel patient would want intubation or tracheostomy or PEG tube. 04/25: Patient remains encephalopathic, awake though not following commands consistently. Dense right hemiplegia persists. Appears to be awake enough to protect airway currently. Patient's daughter rescinded DNR and made a full code last evening. 04/26: Remains encephalopathic, not following commands. On Dobbhoff for tube feeds at 30 cc per hour. Had urinary retention and drained 2 L of urine after placing Moser catheter today. CT head done this morning with large left MCA territory infarct with left to right midline shift and significant cerebral edema. Hyperglycemia noted. Patient given mannitol earlier for increasing cerebral edema. 04/27: Remains encephalopathic, not following commands. On Dobbhoff tube feeds at 30 cc per hour. When into A. fib with RVR last night which responded with Lopressor 5 mg IV 1 dose. 04/28: Remains encephalopathic, arousable, not following commands. Moves left upper extremity spontaneously. Tolerating Dobbhoff tube feeds. Remains on nasal cannula. 04/29: Encephalopathic, eyes be arousable, moves left upper extremity spontaneously and occasionally opens eyes. Dense right hemiplegia and aphasia persists. On nasal cannula. Dobbhoff tube feeds being advanced. Patient was transfused 1 unit PRBCs yesterday. Urine culture with yeast from yesterday for which fluconazole being started. Had brief run of A. fib with RVR which improved with Lopressor IV, currently in sinus rhythm. 04/30: Worsening hypoxemic respiratory failure, currently on partial nonrebreather. Remains lethargic. WBC count increased from 14.6 today 20.7. Chest x-ray shows bilateral worsening infiltrates and small pleural effusions. Sodium 154, weight up by 8 KG. Albumin 1 mg Bumex 1. Also one dose of albumin. Remains in sinus tachycardia. Tmax 101.3 05/01: Patient was intubated yesterday for lack of airway protection, and severe hypoxemic respiratory failure from aspiration pneumonia involving multiple lobes. Patient is on the vent lethargic, no spontaneous eye opening. Chest x- ray remains unchanged. Remains intermittently febrile Tmax 101.3. WBC count improving 05/02: Remains critically ill with no improvement in mental status. Spiking fever of 101.7. Blood culture and sputum culture with staph aureus sputum also growing GNR, WBC count 22,000 now indicating worsening sepsis. Daughter still requesting aggressive care. Palliative care is following 05/03: S/P large area dominant hemisphere CVA. No neurological improvement. Now with pneumonia (infiltrate, fever, leukocytosis) and appropriate abx coverage. She will have a hard time surviving the hip fx, CVA, and pneumonia. Palliative Care needs to be a mainstay of our plan. 05/04: No improvement in neuro status. Sputum C&S allows us to narrow abx coverage to levaquin alone. Lungs remain quite congested. Enteral nutrition tolerated. 05/05: No improvement in neuro status. Moves left arm spontaneously. Flaccid right side. Unresponsive. Persistent mild hypoglycemia - will cut Levemir 50%. Abdomen more distended, check KUB. 05/06: CT head with massive left MCA infarction and > 1 cm shift in right handed woman. She opens eyes, does not track. 05/07: Patient open eyes. Attempts to respond. Bruneian speaking. Tolerating tube feeds. Positive bowel movement. Volume overloaded. 05/08: Tmax 99.4. Potassium being replaced. Ultrasound gallbladder currently pending. Transaminases are trending downward. Gently diurese. 05/09: Alk phos decreasing. Remains with good urine output. Neurological status not improving. 05/10: Fixed neuro deficit unchanged. Profound CVA. 05/11: Appears to track with eyes today. No improvement in motor function. Remains very edematous, diuretics doubled. 05/12: Continued thick secretions. Afebrile, leukocytosis resolved. 05/13: CT head with completed left MCA stroke, persistent edema and 5 mm shift away. Does not last long on SBTs - major decision now is trach/PEG. 05/14: Daughter has decided to proceed with trach and PEG. I have been pessimistic with her about chances for a meaningful recovery. 05/15: Plan for trach today. No change in neuro status. Still ventilator dependent. 05/16: Trach completed. Await PEG and disposition. 05/17: PEG placed 05/16. Start TFs today after nutrition consult. Work to place patient. 05/18: No improvement. Does open eyes, no focus or tracking. Completed large dominant (left) hemisphere CVA in right handed woman with severe deficit. Medicaid pending status, [facility] is following. 05/19: no improvements in neuro exam. ready for LTAC. will d/c moser and rectal tubes. 05/20: no changes or improvements. very difficult placement due to patient not [place] citizen. 05/21: no improvements. resting on vent overnight due to distress. 05/22: no neurologic changes. no improvements. attempted T-piece which failed after 10 minutes. 05/23: no improvements. poor prognosis. poor neuro exam. still failing weaning trials. 05/24: no improvements or changes. still failing t-piece trials. 05/25: No acute changes of improvement overnight. Failed CPAP due to apnea, tried again currently tolerating. Neurological exam unchanged. 05/26: No improvement in neurological function. 05/27: Patient has required Moser catheter because of breakdown of skin on upper thighs and groin. Urine has become infected, will treat. 05/28: Some drainage from around trach (placed 2 weeks ago). Will change out trach tube and inspect neck wound. I&O straight cath q6h order entered 05/17. 05/29: No improvement, remains obtunded. Failed CPAP trials yesterday and again today due to apnea. Moser placed due to persistent urinary retention 05/30: Obtunded, unresponsive. Failed SBTs, remains ventilator dependent. 05/31: Patient continues to fail SBT failed yesterday due to apnea. Neuro exam remains unchanged. 06/01: No acute changes overnight, 06/02: no changes. ekg done overnight for ? EKG changes seen on telemetry which were not visualized on EKG. 06/03: no improvements or changes. had long conversation with daughter yesterday. only facility which would accept patient is in [place] and daughter is refusing to allow patient to go there because it is "too far away." Daughter continues to push for aggressive care despite no improvements, and resistant to Hospice. Patient does not need acute inpatient therapy but lacks funding for appropriate disposition. 06/04: No acute events overnight, failed SBT due to apnea. 06/05: No acute events, continues to fail spontaneous breathing trials. Unable to wean 06/06 Currently tolerating CPAP. Will attempt TP today up to 4 hours. No acute events overnight 06/07: Tolerating trach collar/T-piece. Transfer soon. 06/08: Awaiting transfer. 06/09: Remains ventilator dependent. No improvement in neurological function. 06/10: No improvement. Daughter is not attending preplanned meetings to discuss disposition 06/12: Afebrile. Neurologically stable and unchanged. Noted sodium 135. Adding sodium chloride tablets 1 today. Not on free water.. Tolerating tube feeds at goal 45 cc an hour. 06/13: No improvement in neurological function. 06/14: No improvement. Fluid balance correct. Gas exchange acceptable. 06/15: No improvement. Obtunded and unresponsive. 06/16: no improvements in mental status. KUB overnight with dilated small bowel loops. given methylnaltrexone and erythromycin. today abdomen is soft and tolerating tube feeds. 06/17: tolerated t-piece x 6 hours yesterday. rested on cpap overnight. no changes in encephalopathy. 06/18: Currently on ventilator overnight. Multiple bowel movements. Thick yellow secretions noted in ventilator circuit. Opens eyes. 06/19: Afebrile. Tolerating stretcher chair yesterday on PSV. Tolerating tube feeding. Neurologically unchanged. 06/20: Afebrile. Resting in bed in no acute distress in sitting position. Currently on ventilator set sitting. Tolerated stretcher chair/PSV trial 6 hours yesterday. Neurologically unchanged. 06/21: Tmax 100.8. Patient with copious thick yellow secretions. Tolerating tube feeds. Positive bowel movement. Lasted only 1 hour PSV yesterday 06/22: Tmax 99.9. Continues to have thick secretions. Tolerating tube feeding. Positive BM. 06/23: Afebrile. Continues to have thick tracheal secretions from tracheostomy site. Tolerating tube feeding. 3 bowels movements. Opens eyes to stimulation. Stares at you but does not follow commands. 06/24: Remains encephalopathic, on mechanical ventilation via tracheostomy. Tolerating PEG feeds 06/25: Remains encephalopathic on mechanical ventilation. Tolerated C Pap +5 with pressure support +10 all day yesterday. Tolerating PEG feeds. 06/26: No improvement.Vent dependent still. 06/27: Remains encephalopathic, on mech vent via trach. Daily CPAP trials. 06/28: Unable to wean from ventilator. 06/29: Neurologically unchanged. Remains on mechanical ventilation. Daily C Pap trials ongoing. 06/30: Remains encephalopathic. On C Pap overnight. Tolerating tube feeds. 07/01: No change in neurologic status. On mechanical ventilation via tracheostomy. Tolerating tube feeds. 07/02: Remains encephalopathic. No change in neurologic status. On mechanical ventilation via tracheostomy. Daily C Pap trials ongoing. 07/03: Occasional spontaneous eye opening however remains encephalopathic. On mechanical ventilation via tracheostomy. 07/04: Tmax 99.2. Multiple bowel movements overnight. Tolerating tube feeds. On T piece trial at 5 L since noon yesterday. Otherwise neurologically unchanged. Daughter encouraged by movement of left leg. 07/05: Currently resting in bed on T piece 36 hours. Tolerates chair. No changes neurologically. Positive BM's. Tolerating her tube feeding. 07/06: Continue T-piece trials, if tolerated consider transfer to floor. 07/07: Extended T-piece trial. Plan transfer to floor. 07/09: Patient is experiencing apnea episodes and had to be placed back on higher FiO2.. Hold transfer. 07/10: X-ray left hip shows good anatomic alignment. Still requiring elevated FiO2. 07/11: Prealbumin 20, nutritional support is adequate and status is stable. No neurological improvement. 07/12: No improvement in neurological function. Continued acceptable respiratory effort. 07/13: No change. 10/03/17 Dr. Rizo notified hoop flaring machine operator that patient would be transferring to ICU. Patient is known to [facility] service. She was originally admitted 04/20/17 after a fall with hip fracture resulting in ORIF 04/21. Postoperatively, she developed large R MCA stroke with midline shift. Her neurologic condition remained poor and she underwent trach 05/15/17 and PEG 05/16/17. She was eventually transitioned to Tpiece and transferred to floor. She has suffered from multiple infectious complications due to her persistent bedfast and trach dependent state. 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 She has been on trach collar with worsening hypoxemia therefore she is transferred to [facility]. CXR from yesterday demonstrates bilateral pulmonary infiltrates. She has also had hyperkalemia today up to 6.7 which has been treated with kayexalate, down to 6. 2: improvement in air space disease with diuresis and bronch yesterday. no overall improvements in chronic poor prognosis. unlikely to survive this hospital stay. daughter has poor insight into the gravity of her mother's medical condition. she will not recover meaningfully. 10/05: continuing to clinically improve from a respiratory standpoint. no improvements in overall poor function. off vent on t-piece today. can likely transition out of ICU tomorrow. 10/06 No events overnight. Remains on ventilator via trach. Afebrile. 10/07 No events overnight. Afebrile. 10/08 Patient is on ventilator via trach. afebrile. 10/09 No events overnight. Tolerating tube feeds. Afebrile. 10/10 Patient is on ventilators via trach. 10/11: Nursing reported patient intermittently follow commands today. BUN slightly elevated. Patient tolerating tube feeding 10/12: The patient tolerated CPAP for approximately 6 hours yesterday. No acute changes overnight. No neurological change in status. 10/13 No events overnight. Afebrile. 10/14 Patient remains on ventilator via trach. Afebrile. Didn't tolerate CPAP trials earlier today. Subjective 10/15: no changes. patient remains on the ventilator. unable to wean. 10/16: no improvements. no changes. PSV trials ongoing, not ready for SBT. 10/17 No events overnight. On CPAP. 10/18 Patient remains on ventilator via trach tolerating CPAP trials. 10/19 No events overnight. afebrile. WBC is trending down. Objective Vital Signs Date Time Temp Pulse Resp B/P (MAP) Pulse Ox O2 Delivery O2 Flow Rate FiO2 10/19/17 09:25 97 30 10/19/17 08:00 97.7 70 16 146/72 (96) 10/18/17 23:53 Ventilator Intake and Output 10/19/17 10/19/17 10/20/17 08:00 16:00 00:00 Intake Total 833 ml Output Total 750 ml Balance 83 ml Result Diagram: 10/19/17 0710 10/19/17 1017 Other Results Last Impressions Chest X-Ray 10/15/17 0000 Signed Impressions: Service Date/Time: Sunday, October 15, 2017 11:45 - CONCLUSION: 1. Heart size is borderline with mild interstitial prominence characteristic of some degree of vascular congestion or volume overload. No lanny failure. 2. Atelectatic changes above the left hemidiaphragm with possible small left- sided effusion. Ananda Oneill MD Abdomen X-Ray 10/10/17 0000 Signed Impressions: Service Date/Time: Tuesday, October 10, 2017 11:35 - CONCLUSION: No dilated bowel loops. Benja Ramsey MD Thoracentesis 08/05/17 1535 Signed Impressions: Service Date/Time: Saturday, August 05, 2017 16:08 - CONCLUSION: Uncomplicated CT-guided thoracentesis. Sage Adler MD Chest Ultrasound 08/02/17 0000 Signed Impressions: Service Date/Time: Tuesday, August 01, 2017 22:06 - CONCLUSION: 1. Moderate right pleural effusion, as above. Alejo De La Vega MD Hip and Pelvis X-Ray 07/09/17 0000 Signed Impressions: Service Date/Time: Sunday, July 09, 2017 14:04 - CONCLUSION: Anatomic alignment. Ricardo Middleton MD FACR Liver Ultrasound 06/19/17 0000 Signed Impressions: Service Date/Time: June 13:20 - CONCLUSION: 1. Mildly increased echotexture of the liver characteristic of hepatic steatosis. 2. Gallbladder sludge. Obdulio Sam MD Head CT 05/15/17 0000 Signed Impressions: Service Date/Time: May 19:59 - CONCLUSION: 1. 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 2. No bleed or new/acute infarct. Obdulio Simms MD Gall Bladder Ultrasound 05/08/17 0000 Signed Impressions: Service Date/Time: May 08:23 - CONCLUSION: Focally unremarkable appearance of the gallbladder Obdulio Chun MD Abdomen/Pelvis CT 05/07/17 0000 Signed Impressions: Service Date/Time: Sunday, May 07, 2017 13:23 - CONCLUSION: 1. Large left pneumothorax. 2. Bilateral lower lobe consolidation and bilateral moderate size pleural effusions. 3. Significant soft tissue thickening of the right lateral chest wall and left gluteus muscle. 4. Mild ascites. The findings were called to Dr. Carney. Deangelo Zamora MD Chest CT 04/30/17 0000 Signed Impressions: Service Date/Time: Sunday, April 30, 2017 09:20 - CONCLUSION: 1. Bilateral pulmonary infiltrates more pronounced within the lower lobes with tiny bilateral pleural effusions. Material seen filling the lower lobe bronchi bilaterally either related to purulent material or perhaps mucus plugging. Deangelo Wren Jr., MD Carotid Artery Ultrasound 04/24/17 0000 Signed Impressions: Service Date/Time: April 09:45 - CONCLUSION: 1. No hemodynamically significant carotid artery stenosis. Arnie Middleton MD Hip X-Ray 04/21/17 0000 Signed Impressions: Service Date/Time: Friday, April 21, 2017 11:36 - CONCLUSION: Fluoroscopic images during placement of intramedullary siomara left femur. Benja Ramsey MD Imaging Last Impressions Chest X-Ray 10/15/17 0000 Signed Impressions: Service Date/Time: Sunday, October 15, 2017 11:45 - CONCLUSION: 1. Heart size is borderline with mild interstitial prominence characteristic of some degree of vascular congestion or volume overload. No lanny failure. 2. Atelectatic changes above the left hemidiaphragm with possible small left- sided effusion. Ananda Oneill MD Abdomen X-Ray 10/10/17 0000 Signed Impressions: Service Date/Time: Tuesday, October 10, 2017 11:35 - CONCLUSION: No dilated bowel loops. Benja Ramsey MD Thoracentesis 08/05/17 1535 Signed Impressions: Service Date/Time: Saturday, August 05, 2017 16:08 - CONCLUSION: Uncomplicated CT-guided thoracentesis. Sage Adler MD Chest Ultrasound 08/02/17 0000 Signed Impressions: Service Date/Time: Tuesday, August 01, 2017 22:06 - CONCLUSION: 1. Moderate right pleural effusion, as above. Alejo De La Vega MD Hip and Pelvis X-Ray 07/09/17 0000 Signed Impressions: Service Date/Time: Sunday, July 09, 2017 14:04 - CONCLUSION: Anatomic alignment. Ricardo Middleton MD FACR Liver Ultrasound 06/19/17 0000 Signed Impressions: Service Date/Time: June 13:20 - CONCLUSION: 1. Mildly increased echotexture of the liver characteristic of hepatic steatosis. 2. Gallbladder sludge. Obdulio Sam MD Head CT 05/15/17 0000 Signed Impressions: Service Date/Time: May 19:59 - CONCLUSION: 1. 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 2. No bleed or new/acute infarct. Obdulio Simms MD Gall Bladder Ultrasound 05/08/17 0000 Signed Impressions: Service Date/Time: May 08:23 - CONCLUSION: Focally unremarkable appearance of the gallbladder Obdulio Chun MD Abdomen/Pelvis CT 05/07/17 0000 Signed Impressions: Service Date/Time: Sunday, May 07, 2017 13:23 - CONCLUSION: 1. Large left pneumothorax. 2. Bilateral lower lobe consolidation and bilateral moderate size pleural effusions. 3. Significant soft tissue thickening of the right lateral chest wall and left gluteus muscle. 4. Mild ascites. The findings were called to Dr. Carney. Deangelo Zamora MD Chest CT 04/30/17 0000 Signed Impressions: Service Date/Time: Sunday, April 30, 2017 09:20 - CONCLUSION: 1. Bilateral pulmonary infiltrates more pronounced within the lower lobes with tiny bilateral pleural effusions. Material seen filling the lower lobe bronchi bilaterally either related to purulent material or perhaps mucus plugging. Deangelo Wren Jr., MD Carotid Artery Ultrasound 04/24/17 0000 Signed Impressions: Service Date/Time: April 09:45 - CONCLUSION: 1. No hemodynamically significant carotid artery stenosis. Arnie Middleton MD Hip X-Ray 04/21/17 0000 Signed Impressions: Service Date/Time: Friday, April 21, 2017 11:36 - CONCLUSION: Fluoroscopic images during placement of intramedullary siomara left femur. Benja Ramsey MD Objective Remarks GENERAL: Elderly female, laying in bed on mechanical ventilation SKIN: Warm and dry, adequately perfused. HEAD: Atraumatic. Normocephalic. mucous membranes moist. NECK: 8.[address] Trachea midline. No JVD. CARDIOVASCULAR: Regular rate and rhythm RESPIRATORY: no accessory muscle use. prvc, 30% fio2. GASTROINTESTINAL: Abdomen soft, non-tender, nondistended. PEG in place with tube feeds running, site benign appearing. MUSCULOSKELETAL: Extremities without clubbing, cyanosis, or edema. No obvious deformities. NEUROLOGICAL: Eyes open spontaneously, does not appear to track. L gaze preference. R hemiparesis. Localizes with LUE. Very slight withdrawal of LLE to noxious stimuli. Not following commands A/P Assessment and Plan Assessment: 77yF with severe encephalopathy secondary to large MCA CVA, without meaningful improvements over many months. family continues to press for aggressive care. Continue weaning attempts to separate from mechanical ventilation. poor prognosis for any meaningful recovery at this point. Neuro/Psych: Left MCA CVA - 5.5 mm of [id number] subfalcine herniation, diagnosed 04/24. Persistent right-sided hemiparesis. Prior History of stroke Continue Aspirin 325 mg by tube daily. Stroke occurred 04/24/17. Patient was not a candidate for thrombolysis per discussion with neurology and radiology at that time. Repeat head CT 05/15 showed slight improvement in the midline shift now 5.5 mm and mass effect Neurosurgery consulted 04/30- Dr. López, recommended conservative management, now signed off. Neurology Dr. Malave has followed previously, signed off. Cardiovascular: Hypertension Norvasc 10 mg po daily, Cardura 1 mg peg daily, metoprolol 12.5 peg bid, hydralazine 10 mg per per peg q8 hours. clonidine prn SBP >160 Echo showed EF 25-30%, Grade I diastolic disfunction Pulmonary: Chronic Tracheostomy Now recurrent Acute hypoxemic respiratory failure Acute hypoxic respiratory failure - aspiration possible HCAP - previous episode resolved. Large left pneumothorax status post #10 Togolese chest tube 05/07 - resolved.Chest tube d/c'd 05/12/17 R pleural effusion - Continue with vent support keep sat >92% Ipratropium/albuterol aerosols every 6 hours with albuterol aerosols every 2 hours Pulm toilet, trach care SBT daily as gato- failing daily. Pulm is following GI/liver: Elevated transaminases, resolved Severe protein calorie malnutrition Small bowel ileus- resolved Hepatitis C antibody positive with negative genotype/viral load Hepatic steatosis Currently on PEG tube feeding with Glucerna 1.5 goal 45 cc an hour. KUB abdomen 10/10: No dilated bowel loops Beneprotein tid. Lansoprazole 30 mg daily for GI regimen Endocrine: Diabetes mellitus SSI high scale-dose every 6 hours , Levemir 7u Q12 /Renal/FEN: Monitor renal function. I/O's, electrolytes replacement as needed On Free water 250ml Q8 monitor sodium level. Heme: Chronic Rivaroxaban use prior to admission Leukocytosis Normocytic anemia Follow CBC and coags. ID: MDR Pseudomonas aeruginosa and pneumonia (HCAP) MSSA bacteremia - resolved. Serratia/staph aureus pneumonia - resolved. C glabrata UTI - resolved. Citrobacter UTI - resolved. Serratia/MSSA sputum VAP resolved Current relevant cultures: 09/25/17 -sputum culture - Pseudomonas aeruginosa, multidrug resistant ( including Zerbaxa and Avycaz resistance). On Colistin nebs started 09/30 Per ID, Dr. Ranjan Saleh Follow up on urine cx and sputum cx from 10/18 Prior cultures: Urine culture 04/26/17 sofie glabrata Blood culture 04/29/17 1 out of 4 bottles staph aureus Sputum culture 04/30/17 MSSA and Serratia. urine 05/07-> Serratia, treated. Urine 05/25: Citrobacter MSK: Left Intertroch Hip Fx s/p IMN 04/21/17. Vitamin D deficiency Sacral decubitus ulcer, Previously stage III, healing. Continue calcium vitamin D 250/125 one tablet 3x a day and cholecalciferol 5000 units daily. PT/OT evaluate and treat Maxisorb every 3 days/dressing changes every 3 days per wound care Continue Beneprotein one packet 3x a day Prophylaxis: SCDs. Heparin 5000 subcut q8 hours. GI - lansoprazole 30 mg by PEG tube daily ACCESS: PIV. Kristel Durant MD Oct 19, 2017 11:53
[2017-10-19] MEDS: RESP: ALBUTEROL 2.5 MG/3 ML NEB (PRN) NEB (22:09)
[2017-10-20] VITALS (12 sets, daily range): BP systolic 105–147; BP diastolic 57–72; PULSE 43–77; RESP 18–24; TEMP 97.8–98.8; O2SAT 94–99
[2017-10-20] MEDS: HEPARIN SODIUM - SQ 10,000 UNITS/ML VIAL SQ SCH ×3 (05:20→21:42)
[2017-10-20] MEDS: hydrALAZINE HCL 10 MG TAB PEG SCH ×3 (05:20→21:41)
[2017-10-20] MEDS: INSULIN NovoLIN REGULAR SUPPLEMENTAL SCALE SQ SCH ×3 (05:20→18:00)
[2017-10-20] MEDS: FREE WATER G-TUBE SCH ×4 (05:20→23:42)
[2017-10-20] MEDS: ARTIFICIAL TEARS OPTH SOLN 15 ML BTL EACH EYE SCH ×3 (05:20→21:47)
[2017-10-20 07:47] LABS: AUTOMATED NEUTROPHIL # 10.6 TH/MM3 (1.8-7.7); BASOPHIL # 0.2 TH/MM3 (0-0.2); BASOPHIL % 1.2 % (0.0-2.0); EOSINOPHIL # 0.5 TH/MM3 (0-0.4); EOSINOPHIL % 3.6 % (0.0-4.0); HEMATOCRIT 28.5 % (35.0-46.0); HEMOGLOBIN 9.6 GM/DL (11.6-15.3); LYMPH % 17.1 % (9.0-44.0); LYMPHOCYTE # 2.5 TH/MM3 (1.0-4.8); MEAN CELL VOLUME 98.6 FL (80.0-100.0); MEAN CORPUSCULAR HEMOGLOBIN 33.2 PG (27.0-34.0); MEAN CORPUSCULAR HGB CONC 33.6 % (32.0-36.0); MEAN PLATELET VOLUME 9.2 FL (7.0-11.0); MONO % 5.7 % (0.0-8.0); MONOCYTE # 0.8 TH/MM3 (0-0.9); NEUT % 72.4 % (16.0-70.0); PLATELET COUNT 394 TH/MM3 (150-450); RED BLOOD COUNT 2.89 MIL/MM3 (4.00-5.30); RED CELL DISTRIBUTION WIDTH 16.1 % (11.6-17.2); WHITE BLOOD COUNT 14.6 TH/MM3 (4.0-11.0)
[2017-10-20] MEDS: CHLORHEXIDINE 0.12% (ORAL KIT) 15 ML CUP MT SCH ×2 (08:00→20:00)
[2017-10-20 08:15] LABS: BICARBONATE 30.2 MEQ/L (21.0-32.0); CALCIUM 9.3 MG/DL (8.5-10.1); CREATININE 0.54 MG/DL (0.50-1.00)
[2017-10-20] MEDS: RESP: COLISTIN 150 MG VIAL NEB SCH ×3 (08:22→23:48)
[2017-10-20] MEDS: CHOLECALCIFEROL (VIT D3) 5000 UNIT CAP PEG SCH (09:00)
[2017-10-20] MEDS: SODIUM CHLORIDE 0.9% FLUSH 5 ML FLUSH IV FLUSH SCH ×2 (09:00→21:00)
[2017-10-20 09:15] LABS: BANDS 10 % (0-6); LYMPHOCYTES 30 % (9-44); MONOCYTES 2 % (0-8); NEUTROPHIL # MANUAL DIFF 9.5 TH/MM3 (1.8-7.7); POLYS (SEG NEUTROPHILS) 55 % (16-70)
[2017-10-20 09:19] LABS: TOXIC GRANULATION 1+ (NORMAL)
[2017-10-20] MEDS: DOXAZOSIN MESYLATE 1 MG TAB PEG SCH (09:22)
[2017-10-20] MEDS: ASPIRIN 325 MG TAB DOBHOFF SCH (09:22)
[2017-10-20] MEDS: LANSOPRAZOLE SOLUTAB 30 MG TAB NG SCH (09:22)
[2017-10-20] MEDS: LACTOBACILLUS ACIDOPHILUS TAB PEG SCH ×2 (09:23→21:41)
[2017-10-20] MEDS: CALCIUM/VITAMIN D 250 MG/125 U TAB PEG SCH ×3 (09:23→18:43)
[2017-10-20] MEDS: METOPROLOL TARTRATE 25 MG TAB PEG SCH ×2 (09:24→21:41)
--- NOTE | 2017-10-20 10:14 | HHI.CCPN ---
Subjective Remarks/Hospital Course 04/24: 76-year-old female with a medical history significant for prior stroke, diabetes mellitus who was admitted with DKA and a hip fracture for which she underwent ORIF on 04/21. Patient developed altered mental status and was last noted to be okay around 5:30 AM. Subsequently there was a change in her mental status and she was noted to not be moving her right side for which stroke alert was called. Head CT showed large left MCA territory ischemic infarct with edema. Patient was transferred to the ICU by family medicine service in the critical care consult was requested. I evaluated the patient following arrival to the ICU. At that time she was laying in bed with her eyes open however not following commands and had a dense right hemiplegia. Patient was also evaluated by Dr. Malave from neurology. [facility] further discussed current event with patient's daughter following her arrival to the ICU. Per the daughter patient has been living with her since her stroke in 2014 and does ambulate however has been having problems with memory and incontinence as well as gait difficulties. She does not feel patient would want intubation or tracheostomy or PEG tube. 04/25: Patient remains encephalopathic, awake though not following commands consistently. Dense right hemiplegia persists. Appears to be awake enough to protect airway currently. Patient's daughter rescinded DNR and made a full code last evening. 04/26: Remains encephalopathic, not following commands. On Dobbhoff for tube feeds at 30 cc per hour. Had urinary retention and drained 2 L of urine after placing Moser catheter today. CT head done this morning with large left MCA territory infarct with left to right midline shift and significant cerebral edema. Hyperglycemia noted. Patient given mannitol earlier for increasing cerebral edema. 04/27: Remains encephalopathic, not following commands. On Dobbhoff tube feeds at 30 cc per hour. When into A. fib with RVR last night which responded with Lopressor 5 mg IV 1 dose. 04/28: Remains encephalopathic, arousable, not following commands. Moves left upper extremity spontaneously. Tolerating Dobbhoff tube feeds. Remains on nasal cannula. 04/29: Encephalopathic, eyes be arousable, moves left upper extremity spontaneously and occasionally opens eyes. Dense right hemiplegia and aphasia persists. On nasal cannula. Dobbhoff tube feeds being advanced. Patient was transfused 1 unit PRBCs yesterday. Urine culture with yeast from yesterday for which fluconazole being started. Had brief run of A. fib with RVR which improved with Lopressor IV, currently in sinus rhythm. 04/30: Worsening hypoxemic respiratory failure, currently on partial nonrebreather. Remains lethargic. WBC count increased from 14.6 today 20.7. Chest x-ray shows bilateral worsening infiltrates and small pleural effusions. Sodium 154, weight up by 8 KG. Albumin 1 mg Bumex 1. Also one dose of albumin. Remains in sinus tachycardia. Tmax 101.3 05/01: Patient was intubated yesterday for lack of airway protection, and severe hypoxemic respiratory failure from aspiration pneumonia involving multiple lobes. Patient is on the vent lethargic, no spontaneous eye opening. Chest x- ray remains unchanged. Remains intermittently febrile Tmax 101.3. WBC count improving 05/02: Remains critically ill with no improvement in mental status. Spiking fever of 101.7. Blood culture and sputum culture with staph aureus sputum also growing GNR, WBC count 22,000 now indicating worsening sepsis. Daughter still requesting aggressive care. Palliative care is following 05/03: S/P large area dominant hemisphere CVA. No neurological improvement. Now with pneumonia (infiltrate, fever, leukocytosis) and appropriate abx coverage. She will have a hard time surviving the hip fx, CVA, and pneumonia. Palliative Care needs to be a mainstay of our plan. 05/04: No improvement in neuro status. Sputum C&S allows us to narrow abx coverage to levaquin alone. Lungs remain quite congested. Enteral nutrition tolerated. 05/05: No improvement in neuro status. Moves left arm spontaneously. Flaccid right side. Unresponsive. Persistent mild hypoglycemia - will cut Levemir 50%. Abdomen more distended, check KUB. 05/06: CT head with massive left MCA infarction and > 1 cm shift in right handed woman. She opens eyes, does not track. 05/07: Patient open eyes. Attempts to respond. Citizen Of [place] speaking. Tolerating tube feeds. Positive bowel movement. Volume overloaded. 05/08: Tmax 99.4. Potassium being replaced. Ultrasound gallbladder currently pending. Transaminases are trending downward. Gently diurese. 05/09: Alk phos decreasing. Remains with good urine output. Neurological status not improving. 05/10: Fixed neuro deficit unchanged. Profound CVA. 05/11: Appears to track with eyes today. No improvement in motor function. Remains very edematous, diuretics doubled. 05/12: Continued thick secretions. Afebrile, leukocytosis resolved. 05/13: CT head with completed left MCA stroke, persistent edema and 5 mm shift away. Does not last long on SBTs - major decision now is trach/PEG. 05/14: Daughter has decided to proceed with trach and PEG. I have been pessimistic with her about chances for a meaningful recovery. 05/15: Plan for trach today. No change in neuro status. Still ventilator dependent. 05/16: Trach completed. Await PEG and disposition. 05/17: PEG placed 05/16. Start TFs today after nutrition consult. Work to place patient. 05/18: No improvement. Does open eyes, no focus or tracking. Completed large dominant (left) hemisphere CVA in right handed woman with severe deficit. Medicaid pending status, [facility] is following. 05/19: no improvements in neuro exam. ready for LTAC. will d/c moser and rectal tubes. 05/20: no changes or improvements. very difficult placement due to patient not [place] citizen. 05/21: no improvements. resting on vent overnight due to distress. 05/22: no neurologic changes. no improvements. attempted T-piece which failed after 10 minutes. 05/23: no improvements. poor prognosis. poor neuro exam. still failing weaning trials. 05/24: no improvements or changes. still failing t-piece trials. 05/25: No acute changes of improvement overnight. Failed CPAP due to apnea, tried again currently tolerating. Neurological exam unchanged. 05/26: No improvement in neurological function. 05/27: Patient has required Moser catheter because of breakdown of skin on upper thighs and groin. Urine has become infected, will treat. 05/28: Some drainage from around trach (placed 2 weeks ago). Will change out trach tube and inspect neck wound. I&O straight cath q6h order entered 05/17. 05/29: No improvement, remains obtunded. Failed CPAP trials yesterday and again today due to apnea. Moser placed due to persistent urinary retention 05/30: Obtunded, unresponsive. Failed SBTs, remains ventilator dependent. 05/31: Patient continues to fail SBT failed yesterday due to apnea. Neuro exam remains unchanged. 06/01: No acute changes overnight, 06/02: no changes. ekg done overnight for ? EKG changes seen on telemetry which were not visualized on EKG. 06/03: no improvements or changes. had long conversation with daughter yesterday. only facility which would accept patient is in [place] and daughter is refusing to allow patient to go there because it is "too far away." Daughter continues to push for aggressive care despite no improvements, and resistant to Hospice. Patient does not need acute inpatient therapy but lacks funding for appropriate disposition. 06/04: No acute events overnight, failed SBT due to apnea. 06/05: No acute events, continues to fail spontaneous breathing trials. Unable to wean 06/06 Currently tolerating CPAP. Will attempt TP today up to 4 hours. No acute events overnight 06/07: Tolerating trach collar/T-piece. Transfer soon. 06/08: Awaiting transfer. 06/09: Remains ventilator dependent. No improvement in neurological function. 06/10: No improvement. Daughter is not attending preplanned meetings to discuss disposition 06/12: Afebrile. Neurologically stable and unchanged. Noted sodium 135. Adding sodium chloride tablets 1 today. Not on free water.. Tolerating tube feeds at goal 45 cc an hour. 06/13: No improvement in neurological function. 06/14: No improvement. Fluid balance correct. Gas exchange acceptable. 06/15: No improvement. Obtunded and unresponsive. 06/16: no improvements in mental status. KUB overnight with dilated small bowel loops. given methylnaltrexone and erythromycin. today abdomen is soft and tolerating tube feeds. 06/17: tolerated t-piece x 6 hours yesterday. rested on cpap overnight. no changes in encephalopathy. 06/18: Currently on ventilator overnight. Multiple bowel movements. Thick yellow secretions noted in ventilator circuit. Opens eyes. 06/19: Afebrile. Tolerating stretcher chair yesterday on PSV. Tolerating tube feeding. Neurologically unchanged. 06/20: Afebrile. Resting in bed in no acute distress in sitting position. Currently on ventilator set sitting. Tolerated stretcher chair/PSV trial 6 hours yesterday. Neurologically unchanged. 06/21: Tmax 100.8. Patient with copious thick yellow secretions. Tolerating tube feeds. Positive bowel movement. Lasted only 1 hour PSV yesterday 06/22: Tmax 99.9. Continues to have thick secretions. Tolerating tube feeding. Positive BM. 06/23: Afebrile. Continues to have thick tracheal secretions from tracheostomy site. Tolerating tube feeding. 3 bowels movements. Opens eyes to stimulation. Stares at you but does not follow commands. 06/24: Remains encephalopathic, on mechanical ventilation via tracheostomy. Tolerating PEG feeds 06/25: Remains encephalopathic on mechanical ventilation. Tolerated C Pap +5 with pressure support +10 all day yesterday. Tolerating PEG feeds. 06/26: No improvement.Vent dependent still. 06/27: Remains encephalopathic, on mech vent via trach. Daily CPAP trials. 06/28: Unable to wean from ventilator. 06/29: Neurologically unchanged. Remains on mechanical ventilation. Daily C Pap trials ongoing. 06/30: Remains encephalopathic. On C Pap overnight. Tolerating tube feeds. 07/01: No change in neurologic status. On mechanical ventilation via tracheostomy. Tolerating tube feeds. 07/02: Remains encephalopathic. No change in neurologic status. On mechanical ventilation via tracheostomy. Daily C Pap trials ongoing. 07/03: Occasional spontaneous eye opening however remains encephalopathic. On mechanical ventilation via tracheostomy. 07/04: Tmax 99.2. Multiple bowel movements overnight. Tolerating tube feeds. On T piece trial at 5 L since noon yesterday. Otherwise neurologically unchanged. Daughter encouraged by movement of left leg. 07/05: Currently resting in bed on T piece 36 hours. Tolerates chair. No changes neurologically. Positive BM's. Tolerating her tube feeding. 07/06: Continue T-piece trials, if tolerated consider transfer to floor. 07/07: Extended T-piece trial. Plan transfer to floor. 07/09: Patient is experiencing apnea episodes and had to be placed back on higher FiO2.. Hold transfer. 07/10: X-ray left hip shows good anatomic alignment. Still requiring elevated FiO2. 07/11: Prealbumin 20, nutritional support is adequate and status is stable. No neurological improvement. 07/12: No improvement in neurological function. Continued acceptable respiratory effort. 07/13: No change. 10/03/17 Dr. Rizo notified neonatal intensive care nurse that patient would be transferring to ICU. Patient is known to [facility] service. She was originally admitted 04/20/17 after a fall with hip fracture resulting in ORIF 04/21. Postoperatively, she developed large R MCA stroke with midline shift. Her neurologic condition remained poor and she underwent trach 05/15/17 and PEG 05/16/17. She was eventually transitioned to Tpiece and transferred to floor. She has suffered from multiple infectious complications due to her persistent bedfast and trach dependent state. 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 She has been on trach collar with worsening hypoxemia therefore she is transferred to [facility]. CXR from yesterday demonstrates bilateral pulmonary infiltrates. She has also had hyperkalemia today up to 6.7 which has been treated with kayexalate, down to 6. 2: improvement in air space disease with diuresis and bronch yesterday. no overall improvements in chronic poor prognosis. unlikely to survive this hospital stay. daughter has poor insight into the gravity of her mother's medical condition. she will not recover meaningfully. 10/05: continuing to clinically improve from a respiratory standpoint. no improvements in overall poor function. off vent on t-piece today. can likely transition out of ICU tomorrow. 10/06 No events overnight. Remains on ventilator via trach. Afebrile. 10/07 No events overnight. Afebrile. 10/08 Patient is on ventilator via trach. afebrile. 10/09 No events overnight. Tolerating tube feeds. Afebrile. 10/10 Patient is on ventilators via trach. 10/11: Nursing reported patient intermittently follow commands today. BUN slightly elevated. Patient tolerating tube feeding 10/12: The patient tolerated CPAP for approximately 6 hours yesterday. No acute changes overnight. No neurological change in status. 10/13 No events overnight. Afebrile. 10/14 Patient remains on ventilator via trach. Afebrile. Didn't tolerate CPAP trials earlier today. Subjective 10/15: no changes. patient remains on the ventilator. unable to wean. 10/16: no improvements. no changes. PSV trials ongoing, not ready for SBT. 10/17 No events overnight. On CPAP. 10/18 Patient remains on ventilator via trach tolerating CPAP trials. 10/19 No events overnight. afebrile. WBC is trending down. 2/19 Patient is on CPAP with PS 15, PEEP:5 Awake, afebrile. Objective Vital Signs Date Time Temp Pulse Resp B/P (MAP) Pulse Ox O2 Delivery O2 Flow Rate FiO2 10/20/17 09:38 30 10/20/17 08:23 98 10/20/17 04:00 97.9 64 20 140/72 (94) 10/18/17 23:53 Ventilator Intake and Output 10/20/17 10/20/17 10/21/17 08:00 16:00 00:00 Intake Total 995 ml Output Total 350 ml Balance 645 ml Result Diagram: 10/20/1770410/20/17 07 Other Results Laboratory Tests Test 10/19/17 10:17 10/20/17 07:05 Blood Urea Nitrogen 62 MG/DL 58 MG/DL Creatinine 0.62 MG/DL 0.54 MG/DL Random Glucose 304 MG/DL 122 MG/DL Calcium Level 9.3 MG/DL 9.3 MG/DL Sodium Level 148 MEQ/L 150 MEQ/L Potassium Level 4.7 MEQ/L 4.3 MEQ/L Chloride Level 113 MEQ/L 114 MEQ/L Carbon Dioxide Level 29.0 MEQ/L 30.2 MEQ/L Anion Gap 6 MEQ/L 6 MEQ/L Estimat Glomerular Filtration Rate 94 ML/MIN 110 ML/MIN White Blood Count 14.6 TH/MM3 Red Blood Count 2.89 MIL/MM3 Hemoglobin 9.6 GM/DL Hematocrit 28.5 % Mean Corpuscular Volume 98.6 FL Mean Corpuscular Hemoglobin 33.2 PG Mean Corpuscular Hemoglobin Concent 33.6 % Red Cell Distribution Width 16.1 % Platelet Count 394 TH/MM3 Mean Platelet Volume 9.2 FL Neutrophils (%) (Auto) 72.4 % Lymphocytes (%) (Auto) 17.1 % Monocytes (%) (Auto) 5.7 % Eosinophils (%) (Auto) 3.6 % Basophils (%) (Auto) 1.2 % Neutrophils # (Auto) 10.6 TH/MM3 Lymphocytes # (Auto) 2.5 TH/MM3 Monocytes # (Auto) 0.8 TH/MM3 Eosinophils # (Auto) 0.5 TH/MM3 Basophils # (Auto) 0.2 TH/MM3 CBC Comment AUTO DIFF Differential Total Cells Counted 100 Neutrophils % (Manual) 55 % Band Neutrophils % 10 % Lymphocytes % 30 % Monocytes % 2 % Eosinophils % 3 % Neutrophils # (Manual) 9.5 TH/MM3 Differential Comment FINAL DIFF MANUAL Atypical Lymphocytes % Toxic Granulation 1+ Platelet Estimate NORMAL Platelet Morphology Comment NORMAL Imaging Last Impressions Chest X-Ray 10/15/17 0000 Signed Impressions: Service Date/Time: Sunday, October 15, 2017 11:45 - CONCLUSION: 1. Heart size is borderline with mild interstitial prominence characteristic of some degree of vascular congestion or volume overload. No lanny failure. 2. Atelectatic changes above the left hemidiaphragm with possible small left- sided effusion. Ananda Oneill MD Abdomen X-Ray 10/10/17 0000 Signed Impressions: Service Date/Time: Tuesday, October 10, 2017 11:35 - CONCLUSION: No dilated bowel loops. Benja Ramsey MD Thoracentesis 08/05/17 1535 Signed Impressions: Service Date/Time: Saturday, August 05, 2017 16:08 - CONCLUSION: Uncomplicated CT-guided thoracentesis. Sage Adler MD Chest Ultrasound 08/02/17 0000 Signed Impressions: Service Date/Time: Tuesday, August 01, 2017 22:06 - CONCLUSION: 1. Moderate right pleural effusion, as above. Alejo De La Vega MD Hip and Pelvis X-Ray 07/09/17 0000 Signed Impressions: Service Date/Time: Sunday, July 09, 2017 14:04 - CONCLUSION: Anatomic alignment. Ricardo Middleton MD FACR Liver Ultrasound 06/19/17 0000 Signed Impressions: Service Date/Time: June 13:20 - CONCLUSION: 1. Mildly increased echotexture of the liver characteristic of hepatic steatosis. 2. Gallbladder sludge. Obdulio Sam MD Head CT 05/15/17 0000 Signed Impressions: Service Date/Time: May 19:59 - CONCLUSION: 1. 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 2. No bleed or new/acute infarct. Obdulio Simms MD Gall Bladder Ultrasound 05/08/17 0000 Signed Impressions: Service Date/Time: May 08:23 - CONCLUSION: Focally unremarkable appearance of the gallbladder Obdulio Chun MD Abdomen/Pelvis CT 05/07/17 0000 Signed Impressions: Service Date/Time: Sunday, May 07, 2017 13:23 - CONCLUSION: 1. Large left pneumothorax. 2. Bilateral lower lobe consolidation and bilateral moderate size pleural effusions. 3. Significant soft tissue thickening of the right lateral chest wall and left gluteus muscle. 4. Mild ascites. The findings were called to Dr. Carney. Deangelo Zamora MD Chest CT 04/30/17 0000 Signed Impressions: Service Date/Time: Sunday, April 30, 2017 09:20 - CONCLUSION: 1. Bilateral pulmonary infiltrates more pronounced within the lower lobes with tiny bilateral pleural effusions. Material seen filling the lower lobe bronchi bilaterally either related to purulent material or perhaps mucus plugging. Deangelo Wren Jr., MD Carotid Artery Ultrasound 04/24/17 0000 Signed Impressions: Service Date/Time: April 09:45 - CONCLUSION: 1. No hemodynamically significant carotid artery stenosis. Arnie Middleton MD Hip X-Ray 04/21/17 0000 Signed Impressions: Service Date/Time: Friday, April 21, 2017 11:36 - CONCLUSION: Fluoroscopic images during placement of intramedullary siomara left femur. Benja Ramsey MD Objective Remarks GENERAL: Elderly female, laying in bed on mechanical ventilation SKIN: Warm and dry, adequately perfused. HEAD: Atraumatic. Normocephalic. mucous membranes moist. NECK: 8.[address] Trachea midline. No JVD. CARDIOVASCULAR: Regular rate and rhythm RESPIRATORY: no accessory muscle use. prvc, 30% fio2. GASTROINTESTINAL: Abdomen soft, non-tender, nondistended. PEG in place with tube feeds running, site benign appearing. MUSCULOSKELETAL: Extremities without clubbing, cyanosis, or edema. No obvious deformities. NEUROLOGICAL: Eyes open spontaneously, does not appear to track. L gaze preference. R hemiparesis. Localizes with LUE. Very slight withdrawal of LLE to noxious stimuli. Not following commands A/P Assessment and Plan Assessment: 77yF with severe encephalopathy secondary to large MCA CVA, without meaningful improvements over many months. family continues to press for aggressive care. Continue weaning attempts to separate from mechanical ventilation. poor prognosis for any meaningful recovery at this point. Neuro/Psych: Left MCA CVA - 5.5 mm of [id number] subfalcine herniation, diagnosed 04/24. Persistent right-sided hemiparesis. Prior History of stroke Continue Aspirin 325 mg by tube daily. Stroke occurred 04/24/17. Patient was not a candidate for thrombolysis per discussion with neurology and radiology at that time. Repeat head CT 05/15 showed slight improvement in the midline shift now 5.5 mm and mass effect Neurosurgery consulted 04/30- Dr. López, recommended conservative management, now signed off. Neurology Dr. Malave has followed previously, signed off. Cardiovascular: Hypertension Norvasc 10 mg po daily, Cardura 1 mg peg daily, metoprolol 12.5 peg bid, hydralazine 10 mg per per peg q8 hours. clonidine prn SBP >160 Echo showed EF 25-30%, Grade I diastolic disfunction Pulmonary: Chronic Tracheostomy Now recurrent Acute hypoxemic respiratory failure Acute hypoxic respiratory failure - aspiration possible HCAP - previous episode resolved. Large left pneumothorax status post #10 [place] chest tube 05/07 - resolved.Chest tube d/c'd 05/12/17 R pleural effusion - Continue with vent support keep sat >92% Ipratropium/albuterol aerosols every 6 hours with albuterol aerosols every 2 hours Pulm toilet, trach care SBT daily as gato- failing daily. Pulm is following GI/liver: Elevated transaminases, resolved Severe protein calorie malnutrition Small bowel ileus- resolved Hepatitis C antibody positive with negative genotype/viral load Hepatic steatosis Currently on PEG tube feeding with Glucerna 1.5 goal 45 cc an hour. KUB abdomen 10/10: No dilated bowel loops Beneprotein tid. Lansoprazole 30 mg daily for GI regimen Endocrine: Diabetes mellitus SSI high scale-dose every 6 hours , Levemir 7u Q12 /Renal/FEN: Monitor renal function. I/O's, electrolytes replacement as needed Increase Free water 300ml Q6 monitor sodium level. Heme: Chronic Rivaroxaban use prior to admission Leukocytosis...trending down Normocytic anemia Follow CBC and coags. ID: MDR Pseudomonas aeruginosa and pneumonia (HCAP) MSSA bacteremia - resolved. Serratia/staph aureus pneumonia - resolved. C glabrata UTI - resolved. Citrobacter UTI - resolved. Serratia/MSSA sputum VAP resolved Current relevant cultures: 09/25/17 -sputum culture - Pseudomonas aeruginosa, multidrug resistant ( including Zerbaxa and Avycaz resistance). On Colistin nebs started 09/30 till 10/21 Per ID sputum cx from 10/18: GNR( ? colonized) Prior cultures: Urine culture 04/26/17 sofie glabrata Blood culture 04/29/17 1 out of 4 bottles staph aureus Sputum culture 04/30/17 MSSA and Serratia. urine 05/07-> Serratia, treated. Urine 05/25: Citrobacter MSK: Left Intertroch Hip Fx s/p IMN 04/21/17. Vitamin D deficiency Sacral decubitus ulcer, Previously stage III, healing. Continue calcium vitamin D 250/125 one tablet 3x a day and cholecalciferol 5000 units daily. PT/OT evaluate and treat Maxisorb every 3 days/dressing changes every 3 days per wound care Continue Beneprotein one packet 3x a day Prophylaxis: SCDs. Heparin 5000 subcut q8 hours. GI - lansoprazole 30 mg by PEG tube daily ACCESS: PIV. level 2 Kristel Durant MD Oct 20, 2017 10:14
[2017-10-20] MEDS: INSULIN DETEMIR 100 UNITS/ML VIAL SQ SCH (12:00)
--- NOTE | 2017-10-20 19:06 | HHI.PR ---
Subjective Remarks 76 YO Frail female with RF,Trach,CVA no fever No Fever On vent Did't tolerate CPAP Objective Vital Signs Vital Signs Date Time Temp Pulse Resp B/P (MAP) Pulse Ox O2 Delivery O2 Flow Rate FiO2 10/20/17 15:40 99 30 10/20/17 11:06 99 30 10/20/17 09:38 30 10/20/17 08:23 98 30 10/20/17 08:00 98.1 68 22 147/71 (96) 98 10/20/17 08:00 30 10/20/17 08:00 73 10/20/17 04:20 98 30 10/20/17 04:00 30 10/20/17 04:00 97.9 64 20 140/72 (94) 98 10/20/17 00:00 30 10/19/17 23:48 97 30 10/19/17 23:27 98.3 67 20 141/70 (93) 97 10/19/17 21:30 98 30 10/19/17 20:00 79 10/19/17 20:00 30 10/19/17 19:50 97.8 70 16 132/69 (90) 98 I/O 10/19/17 10/19/17 10/19/17 10/20/17 10/20/17 10/20/17 07:00 15:00 23:00 07:00 15:00 23:00 Intake Total 833 ml 722 ml 995 ml Output Total 750 ml 100 ml 350 ml Balance 83 ml 622 ml 645 ml Tube Feeding 633 ml 522 ml 495 ml Other 200 ml 200 ml 500 ml Output Urine Total 700 ml 100 ml 350 ml Stool Total 50 ml 0 ml # Voids 3 Result Diagram: 10/20/1770410/20/17704 Objective Remarks GENERAL: Elderly female,NAD SKIN: Warm and dry. HEAD: Normocephalic. EYES: No scleral icterus. No injection or drainage. NECK: Supple, trachea midline. No JVD or lymphadenopathy. CARDIOVASCULAR: Regular rate and rhythm without murmurs, gallops, or rubs. RESPIRATORY: Breath sounds equal bilaterally. No accessory muscle use. GASTROINTESTINAL: Abdomen soft, non-tender, nondistended. MUSCULOSKELETAL: No cyanosis, or edema. BACK: Nontender without obvious deformity. No CVA tenderness. A/P Assessment and Plan RF,S/P Trach CVA Pneumonia Pleural effusion Pseudomonas Tracheobronchitis, Hyperkalemia Hypoxia PLAN: Vent support , CPAP trial in AM Aerosol nebs Supplement 02 TF Abx per ID Chris Pozo RN, MD Oct 20, 2017 19:06
[2017-10-21] VITALS (11 sets, daily range): BP systolic 126–133; BP diastolic 57–71; PULSE 59–70; RESP 16–18; TEMP 96.3–99.9; O2SAT 95–99
[2017-10-21] MEDS: INSULIN DETEMIR 100 UNITS/ML VIAL SQ SCH ×2 (01:07→11:55)
[2017-10-21] MEDS: FREE WATER G-TUBE SCH ×3 (06:00→17:51)
[2017-10-21] MEDS: hydrALAZINE HCL 10 MG TAB PEG SCH ×3 (06:19→21:15)
[2017-10-21] MEDS: HEPARIN SODIUM - SQ 10,000 UNITS/ML VIAL SQ SCH ×3 (06:19→21:15)
[2017-10-21] MEDS: ARTIFICIAL TEARS OPTH SOLN 15 ML BTL EACH EYE SCH ×3 (06:19→22:00)
[2017-10-21] MEDS: INSULIN NovoLIN REGULAR SUPPLEMENTAL SCALE SQ SCH ×4 (07:18→17:51)
[2017-10-21] MEDS: RESP: COLISTIN 150 MG VIAL NEB SCH (07:29)
[2017-10-21] MEDS: CHLORHEXIDINE 0.12% (ORAL KIT) 15 ML CUP MT SCH ×2 (08:00→20:00)
[2017-10-21] MEDS: LACTOBACILLUS ACIDOPHILUS TAB PEG SCH ×2 (08:03→21:17)
[2017-10-21] MEDS: CHOLECALCIFEROL (VIT D3) 5000 UNIT CAP PEG SCH (08:03)
[2017-10-21] MEDS: ASPIRIN 325 MG TAB DOBHOFF SCH (08:03)
[2017-10-21] MEDS: DOXAZOSIN MESYLATE 1 MG TAB PEG SCH (08:04)
[2017-10-21] MEDS: CALCIUM/VITAMIN D 250 MG/125 U TAB PEG SCH ×3 (08:04→17:53)
[2017-10-21] MEDS: SODIUM CHLORIDE 0.9% FLUSH 5 ML FLUSH IV FLUSH SCH ×2 (08:04→21:00)
[2017-10-21] MEDS: LANSOPRAZOLE SOLUTAB 30 MG TAB NG SCH (08:04)
[2017-10-21] MEDS: METOPROLOL TARTRATE 25 MG TAB PEG SCH ×2 (08:04→21:17)
[2017-10-21 10:26] LABS: AUTOMATED NEUTROPHIL # 10.6 TH/MM3 (1.8-7.7); BASOPHIL # 0.1 TH/MM3 (0-0.2); BASOPHIL % 0.5 % (0.0-2.0); EOSINOPHIL # 0.4 TH/MM3 (0-0.4); HEMATOCRIT 28.1 % (35.0-46.0); HEMOGLOBIN 9.2 GM/DL (11.6-15.3); LYMPH % 16.7 % (9.0-44.0); LYMPHOCYTE # 2.3 TH/MM3 (1.0-4.8); MEAN CELL VOLUME 99.7 FL (80.0-100.0); MEAN CORPUSCULAR HEMOGLOBIN 32.7 PG (27.0-34.0); MEAN CORPUSCULAR HGB CONC 32.8 % (32.0-36.0); MEAN PLATELET VOLUME 9.7 FL (7.0-11.0); MONO % 4.2 % (0.0-8.0); MONOCYTE # 0.6 TH/MM3 (0-0.9); NEUT % 75.6 % (16.0-70.0); PLATELET COUNT 341 TH/MM3 (150-450); RED BLOOD COUNT 2.82 MIL/MM3 (4.00-5.30); RED CELL DISTRIBUTION WIDTH 16.1 % (11.6-17.2)
[2017-10-21 11:03] LABS: BANDS 14 % (0-6); CORRECTED NUCLEATED RBC 1 /100 WBC (0-0); LYMPHOCYTES 9 % (9-44); MONOCYTES 4 % (0-8); MYELOCYTES 3 % (0-0); NEUTROPHIL # MANUAL DIFF 11.8 TH/MM3 (1.8-7.7); NUCLEATED RED BLOOD CELL 1 (0-0); POLYS (SEG NEUTROPHILS) 67 % (16-70)
[2017-10-21 11:04] LABS: HOWELL-JOLLY BODIES PRESENT (NONE SEEN)
[2017-10-21 11:12] LABS: BICARBONATE 29.2 MEQ/L (21.0-32.0); CALCIUM 9.5 MG/DL (8.5-10.1); CREATININE 0.78 MG/DL (0.50-1.00)
[2017-10-22] VITALS (12 sets, daily range): BP systolic 127–137; BP diastolic 52–69; PULSE 50–64; RESP 16–18; TEMP 98.2–98.5; O2SAT 99–100
[2017-10-22] MEDS: INSULIN NovoLIN REGULAR SUPPLEMENTAL SCALE SQ SCH ×4 (06:00→17:46)
[2017-10-22] MEDS: FREE WATER G-TUBE SCH ×5 (06:00→21:35)
[2017-10-22] MEDS: ARTIFICIAL TEARS OPTH SOLN 15 ML BTL EACH EYE SCH ×3 (06:00→21:35)
[2017-10-22] MEDS: HEPARIN SODIUM - SQ 10,000 UNITS/ML VIAL SQ SCH ×3 (06:10→21:35)
[2017-10-22] MEDS: hydrALAZINE HCL 10 MG TAB PEG SCH ×3 (06:10→21:35)
[2017-10-22] MEDS: CHLORHEXIDINE 0.12% (ORAL KIT) 15 ML CUP MT SCH ×2 (08:00→20:00)
[2017-10-22] MEDS: ASPIRIN 325 MG TAB DOBHOFF SCH (08:38)
[2017-10-22] MEDS: DOXAZOSIN MESYLATE 1 MG TAB PEG SCH (08:38)
[2017-10-22] MEDS: CHOLECALCIFEROL (VIT D3) 5000 UNIT CAP PEG SCH (08:38)
[2017-10-22] MEDS: LACTOBACILLUS ACIDOPHILUS TAB PEG SCH ×2 (08:38→21:34)
[2017-10-22] MEDS: METOPROLOL TARTRATE 25 MG TAB PEG SCH ×2 (08:38→21:34)
[2017-10-22] MEDS: CALCIUM/VITAMIN D 250 MG/125 U TAB PEG SCH ×3 (08:39→17:45)
[2017-10-22] MEDS: SODIUM CHLORIDE 0.9% FLUSH 5 ML FLUSH IV FLUSH SCH ×2 (08:41→21:00)
[2017-10-22] MEDS: LANSOPRAZOLE SOLUTAB 30 MG TAB NG SCH (08:42)
[2017-10-22] MEDS: INSULIN DETEMIR 100 UNITS/ML VIAL SQ SCH ×2 (12:00)
--- NOTE | 2017-10-22 19:13 | HHI.CCPN ---
Subjective Remarks/Hospital Course 04/24: 76-year-old female with a medical history significant for prior stroke, diabetes mellitus who was admitted with DKA and a hip fracture for which she underwent ORIF on 04/21. Patient developed altered mental status and was last noted to be okay around 5:30 AM. Subsequently there was a change in her mental status and she was noted to not be moving her right side for which stroke alert was called. Head CT showed large left MCA territory ischemic infarct with edema. Patient was transferred to the ICU by family medicine service in the critical care consult was requested. I evaluated the patient following arrival to the ICU. At that time she was laying in bed with her eyes open however not following commands and had a dense right hemiplegia. Patient was also evaluated by Dr. Malave from neurology. [facility] further discussed current event with patient's daughter following her arrival to the ICU. Per the daughter patient has been living with her since her stroke in 2014 and does ambulate however has been having problems with memory and incontinence as well as gait difficulties. She does not feel patient would want intubation or tracheostomy or PEG tube. 04/25: Patient remains encephalopathic, awake though not following commands consistently. Dense right hemiplegia persists. Appears to be awake enough to protect airway currently. Patient's daughter rescinded DNR and made a full code last evening. 04/26: Remains encephalopathic, not following commands. On Dobbhoff for tube feeds at 30 cc per hour. Had urinary retention and drained 2 L of urine after placing Moser catheter today. CT head done this morning with large left MCA territory infarct with left to right midline shift and significant cerebral edema. Hyperglycemia noted. Patient given mannitol earlier for increasing cerebral edema. 04/27: Remains encephalopathic, not following commands. On Dobbhoff tube feeds at 30 cc per hour. When into A. fib with RVR last night which responded with Lopressor 5 mg IV 1 dose. 04/28: Remains encephalopathic, arousable, not following commands. Moves left upper extremity spontaneously. Tolerating Dobbhoff tube feeds. Remains on nasal cannula. 04/29: Encephalopathic, eyes be arousable, moves left upper extremity spontaneously and occasionally opens eyes. Dense right hemiplegia and aphasia persists. On nasal cannula. Dobbhoff tube feeds being advanced. Patient was transfused 1 unit PRBCs yesterday. Urine culture with yeast from yesterday for which fluconazole being started. Had brief run of A. fib with RVR which improved with Lopressor IV, currently in sinus rhythm. 04/30: Worsening hypoxemic respiratory failure, currently on partial nonrebreather. Remains lethargic. WBC count increased from 14.6 today 20.7. Chest x-ray shows bilateral worsening infiltrates and small pleural effusions. Sodium 154, weight up by 8 KG. Albumin 1 mg Bumex 1. Also one dose of albumin. Remains in sinus tachycardia. Tmax 101.3 05/01: Patient was intubated yesterday for lack of airway protection, and severe hypoxemic respiratory failure from aspiration pneumonia involving multiple lobes. Patient is on the vent lethargic, no spontaneous eye opening. Chest x- ray remains unchanged. Remains intermittently febrile Tmax 101.3. WBC count improving 05/02: Remains critically ill with no improvement in mental status. Spiking fever of 101.7. Blood culture and sputum culture with staph aureus sputum also growing GNR, WBC count 22,000 now indicating worsening sepsis. Daughter still requesting aggressive care. Palliative care is following 05/03: S/P large area dominant hemisphere CVA. No neurological improvement. Now with pneumonia (infiltrate, fever, leukocytosis) and appropriate abx coverage. She will have a hard time surviving the hip fx, CVA, and pneumonia. Palliative Care needs to be a mainstay of our plan. 05/04: No improvement in neuro status. Sputum C&S allows us to narrow abx coverage to levaquin alone. Lungs remain quite congested. Enteral nutrition tolerated. 05/05: No improvement in neuro status. Moves left arm spontaneously. Flaccid right side. Unresponsive. Persistent mild hypoglycemia - will cut Levemir 50%. Abdomen more distended, check KUB. 05/06: CT head with massive left MCA infarction and > 1 cm shift in right handed woman. She opens eyes, does not track. 05/07: Patient open eyes. Attempts to respond. [place]an speaking. Tolerating tube feeds. Positive bowel movement. Volume overloaded. 05/08: Tmax 99.4. Potassium being replaced. Ultrasound gallbladder currently pending. Transaminases are trending downward. Gently diurese. 05/09: Alk phos decreasing. Remains with good urine output. Neurological status not improving. 05/10: Fixed neuro deficit unchanged. Profound CVA. 05/11: Appears to track with eyes today. No improvement in motor function. Remains very edematous, diuretics doubled. 05/12: Continued thick secretions. Afebrile, leukocytosis resolved. 05/13: CT head with completed left MCA stroke, persistent edema and 5 mm shift away. Does not last long on SBTs - major decision now is trach/PEG. 05/14: Daughter has decided to proceed with trach and PEG. I have been pessimistic with her about chances for a meaningful recovery. 05/15: Plan for trach today. No change in neuro status. Still ventilator dependent. 05/16: Trach completed. Await PEG and disposition. 05/17: PEG placed 05/16. Start TFs today after nutrition consult. Work to place patient. 05/18: No improvement. Does open eyes, no focus or tracking. Completed large dominant (left) hemisphere CVA in right handed woman with severe deficit. Medicaid pending status, [facility] is following. 05/19: no improvements in neuro exam. ready for LTAC. will d/c moser and rectal tubes. 05/20: no changes or improvements. very difficult placement due to patient not [place] citizen. 05/21: no improvements. resting on vent overnight due to distress. 05/22: no neurologic changes. no improvements. attempted T-piece which failed after 10 minutes. 05/23: no improvements. poor prognosis. poor neuro exam. still failing weaning trials. 05/24: no improvements or changes. still failing t-piece trials. 05/25: No acute changes of improvement overnight. Failed CPAP due to apnea, tried again currently tolerating. Neurological exam unchanged. 05/26: No improvement in neurological function. 05/27: Patient has required Moser catheter because of breakdown of skin on upper thighs and groin. Urine has become infected, will treat. 05/28: Some drainage from around trach (placed 2 weeks ago). Will change out trach tube and inspect neck wound. I&O straight cath q6h order entered 05/17. 05/29: No improvement, remains obtunded. Failed CPAP trials yesterday and again today due to apnea. Moser placed due to persistent urinary retention 05/30: Obtunded, unresponsive. Failed SBTs, remains ventilator dependent. 05/31: Patient continues to fail SBT failed yesterday due to apnea. Neuro exam remains unchanged. 06/01: No acute changes overnight, 06/02: no changes. ekg done overnight for ? EKG changes seen on telemetry which were not visualized on EKG. 06/03: no improvements or changes. had long conversation with daughter yesterday. only facility which would accept patient is in [place] and daughter is refusing to allow patient to go there because it is "too far away." Daughter continues to push for aggressive care despite no improvements, and resistant to Hospice. Patient does not need acute inpatient therapy but lacks funding for appropriate disposition. 06/04: No acute events overnight, failed SBT due to apnea. 06/05: No acute events, continues to fail spontaneous breathing trials. Unable to wean 06/06 Currently tolerating CPAP. Will attempt TP today up to 4 hours. No acute events overnight 06/07: Tolerating trach collar/T-piece. Transfer soon. 06/08: Awaiting transfer. 06/09: Remains ventilator dependent. No improvement in neurological function. 06/10: No improvement. Daughter is not attending preplanned meetings to discuss disposition 06/12: Afebrile. Neurologically stable and unchanged. Noted sodium 135. Adding sodium chloride tablets 1 today. Not on free water.. Tolerating tube feeds at goal 45 cc an hour. 06/13: No improvement in neurological function. 06/14: No improvement. Fluid balance correct. Gas exchange acceptable. 06/15: No improvement. Obtunded and unresponsive. 06/16: no improvements in mental status. KUB overnight with dilated small bowel loops. given methylnaltrexone and erythromycin. today abdomen is soft and tolerating tube feeds. 06/17: tolerated t-piece x 6 hours yesterday. rested on cpap overnight. no changes in encephalopathy. 06/18: Currently on ventilator overnight. Multiple bowel movements. Thick yellow secretions noted in ventilator circuit. Opens eyes. 06/19: Afebrile. Tolerating stretcher chair yesterday on PSV. Tolerating tube feeding. Neurologically unchanged. 06/20: Afebrile. Resting in bed in no acute distress in sitting position. Currently on ventilator set sitting. Tolerated stretcher chair/PSV trial 6 hours yesterday. Neurologically unchanged. 06/21: Tmax 100.8. Patient with copious thick yellow secretions. Tolerating tube feeds. Positive bowel movement. Lasted only 1 hour PSV yesterday 06/22: Tmax 99.9. Continues to have thick secretions. Tolerating tube feeding. Positive BM. 06/23: Afebrile. Continues to have thick tracheal secretions from tracheostomy site. Tolerating tube feeding. 3 bowels movements. Opens eyes to stimulation. Stares at you but does not follow commands. 06/24: Remains encephalopathic, on mechanical ventilation via tracheostomy. Tolerating PEG feeds 06/25: Remains encephalopathic on mechanical ventilation. Tolerated C Pap +5 with pressure support +10 all day yesterday. Tolerating PEG feeds. 06/26: No improvement.Vent dependent still. 06/27: Remains encephalopathic, on mech vent via trach. Daily CPAP trials. 06/28: Unable to wean from ventilator. 06/29: Neurologically unchanged. Remains on mechanical ventilation. Daily C Pap trials ongoing. 06/30: Remains encephalopathic. On C Pap overnight. Tolerating tube feeds. 07/01: No change in neurologic status. On mechanical ventilation via tracheostomy. Tolerating tube feeds. 07/02: Remains encephalopathic. No change in neurologic status. On mechanical ventilation via tracheostomy. Daily C Pap trials ongoing. 07/03: Occasional spontaneous eye opening however remains encephalopathic. On mechanical ventilation via tracheostomy. 07/04: Tmax 99.2. Multiple bowel movements overnight. Tolerating tube feeds. On T piece trial at 5 L since noon yesterday. Otherwise neurologically unchanged. Daughter encouraged by movement of left leg. 07/05: Currently resting in bed on T piece 36 hours. Tolerates chair. No changes neurologically. Positive BM's. Tolerating her tube feeding. 07/06: Continue T-piece trials, if tolerated consider transfer to floor. 07/07: Extended T-piece trial. Plan transfer to floor. 07/09: Patient is experiencing apnea episodes and had to be placed back on higher FiO2.. Hold transfer. 07/10: X-ray left hip shows good anatomic alignment. Still requiring elevated FiO2. 07/11: Prealbumin 20, nutritional support is adequate and status is stable. No neurological improvement. 07/12: No improvement in neurological function. Continued acceptable respiratory effort. 07/13: No change. 10/03/17 Dr. Rizo notified java programmer analyst that patient would be transferring to ICU. Patient is known to [facility] service. She was originally admitted 04/20/17 after a fall with hip fracture resulting in ORIF 04/21. Postoperatively, she developed large R MCA stroke with midline shift. Her neurologic condition remained poor and she underwent trach 05/15/17 and PEG 05/16/17. She was eventually transitioned to Tpiece and transferred to floor. She has suffered from multiple infectious complications due to her persistent bedfast and trach dependent state. 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 She has been on trach collar with worsening hypoxemia therefore she is transferred to [facility]. CXR from yesterday demonstrates bilateral pulmonary infiltrates. She has also had hyperkalemia today up to 6.7 which has been treated with kayexalate, down to 6. 2: improvement in air space disease with diuresis and bronch yesterday. no overall improvements in chronic poor prognosis. unlikely to survive this hospital stay. daughter has poor insight into the gravity of her mother's medical condition. she will not recover meaningfully. 10/05: continuing to clinically improve from a respiratory standpoint. no improvements in overall poor function. off vent on t-piece today. can likely transition out of ICU tomorrow. 10/06 No events overnight. Remains on ventilator via trach. Afebrile. 10/07 No events overnight. Afebrile. 10/08 Patient is on ventilator via trach. afebrile. 10/09 No events overnight. Tolerating tube feeds. Afebrile. 10/10 Patient is on ventilators via trach. 10/11: Nursing reported patient intermittently follow commands today. BUN slightly elevated. Patient tolerating tube feeding 10/12: The patient tolerated CPAP for approximately 6 hours yesterday. No acute changes overnight. No neurological change in status. 10/13 No events overnight. Afebrile. 10/14 Patient remains on ventilator via trach. Afebrile. Didn't tolerate CPAP trials earlier today. Subjective 10/15: no changes. patient remains on the ventilator. unable to wean. 10/16: no improvements. no changes. PSV trials ongoing, not ready for SBT. 10/17 No events overnight. On CPAP. 10/18 Patient remains on ventilator via trach tolerating CPAP trials. 10/19 No events overnight. afebrile. WBC is trending down. 2/19 Patient is on CPAP with PS 15, PEEP:5 Awake, afebrile. 10/21, 10/22: Remains on mechanical ventilation via tracheostomy. Objective Vital Signs Date Time Temp Pulse Resp B/P (MAP) Pulse Ox O2 Delivery O2 Flow Rate FiO2 10/22/17 17:28 100 35 10/22/17 16:00 98.2 50 16 132/69 (90) 10/20/17 21:49 Ventilator Intake and Output 10/22/17 10/22/17 10/23/17 08:00 16:00 00:00 Intake Total 1148 ml 1059 ml Output Total 750 ml 450 ml Balance 398 ml 609 ml Result Diagram: 10/21/17 0915 10/21/17 0915 Imaging Last Impressions Chest X-Ray 10/15/17 0000 Signed Impressions: Service Date/Time: Sunday, October 15, 2017 11:45 - CONCLUSION: 1. Heart size is borderline with mild interstitial prominence characteristic of some degree of vascular congestion or volume overload. No lanny failure. 2. Atelectatic changes above the left hemidiaphragm with possible small left- sided effusion. Ananda Oneill MD Abdomen X-Ray 10/10/17 0000 Signed Impressions: Service Date/Time: Tuesday, October 10, 2017 11:35 - CONCLUSION: No dilated bowel loops. Benja Ramsey MD Thoracentesis 08/05/17 1535 Signed Impressions: Service Date/Time: Saturday, August 05, 2017 16:08 - CONCLUSION: Uncomplicated CT-guided thoracentesis. Sage Adler MD Chest Ultrasound 08/02/17 0000 Signed Impressions: Service Date/Time: Tuesday, August 01, 2017 22:06 - CONCLUSION: 1. Moderate right pleural effusion, as above. Alejo De La Vega MD Hip and Pelvis X-Ray 07/09/17 0000 Signed Impressions: Service Date/Time: Sunday, July 09, 2017 14:04 - CONCLUSION: Anatomic alignment. Ricardo Middleton MD FACR Liver Ultrasound 06/19/17 0000 Signed Impressions: Service Date/Time: June 13:20 - CONCLUSION: 1. Mildly increased echotexture of the liver characteristic of hepatic steatosis. 2. Gallbladder sludge. Obdulio Sam MD Head CT 05/15/17 0000 Signed Impressions: Service Date/Time: May 19:59 - CONCLUSION: 1. 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 2. No bleed or new/acute infarct. Obdulio Simms MD Gall Bladder Ultrasound 05/08/17 0000 Signed Impressions: Service Date/Time: May 08:23 - CONCLUSION: Focally unremarkable appearance of the gallbladder Obdulio Chun MD Abdomen/Pelvis CT 05/07/17 0000 Signed Impressions: Service Date/Time: Sunday, May 07, 2017 13:23 - CONCLUSION: 1. Large left pneumothorax. 2. Bilateral lower lobe consolidation and bilateral moderate size pleural effusions. 3. Significant soft tissue thickening of the right lateral chest wall and left gluteus muscle. 4. Mild ascites. The findings were called to Dr. Carney. Deangelo Zamora MD Chest CT 04/30/17 0000 Signed Impressions: Service Date/Time: Sunday, April 30, 2017 09:20 - CONCLUSION: 1. Bilateral pulmonary infiltrates more pronounced within the lower lobes with tiny bilateral pleural effusions. Material seen filling the lower lobe bronchi bilaterally either related to purulent material or perhaps mucus plugging. Deangelo Wren Jr., MD Carotid Artery Ultrasound 04/24/17 0000 Signed Impressions: Service Date/Time: April 09:45 - CONCLUSION: 1. No hemodynamically significant carotid artery stenosis. Arnie Middleton MD Hip X-Ray 04/21/17 0000 Signed Impressions: Service Date/Time: Friday, April 21, 2017 11:36 - CONCLUSION: Fluoroscopic images during placement of intramedullary siomara left femur. Benja Ramsey MD Objective Remarks GENERAL: Elderly female, laying in bed on mechanical ventilation SKIN: Warm and dry, adequately perfused. HEAD: Atraumatic. Normocephalic. mucous membranes moist. NECK: 8.[address] Trachea midline. No JVD. CARDIOVASCULAR: Regular rate and rhythm RESPIRATORY: no accessory muscle use. prvc, 30% fio2. GASTROINTESTINAL: Abdomen soft, non-tender, nondistended. PEG in place with tube feeds running, site benign appearing. MUSCULOSKELETAL: Extremities without clubbing, cyanosis, or edema. No obvious deformities. NEUROLOGICAL: Eyes open spontaneously, does not appear to track. L gaze preference. R hemiparesis. Localizes with LUE. Very slight withdrawal of LLE to noxious stimuli. Not following commands A/P Assessment and Plan Assessment: 77yF with severe encephalopathy secondary to large MCA CVA, without meaningful improvements over many months. family continues to press for aggressive care. Continue weaning attempts to separate from mechanical ventilation. poor prognosis for any meaningful recovery at this point. Neuro/Psych: Left MCA CVA - 5.5 mm of [id number] subfalcine herniation, diagnosed 04/24. Persistent right-sided hemiparesis. Prior History of stroke Continue Aspirin 325 mg by tube daily. Stroke occurred 04/24/17. Patient was not a candidate for thrombolysis per discussion with neurology and radiology at that time. Repeat head CT 05/15 showed slight improvement in the midline shift now 5.5 mm and mass effect Neurosurgery consulted 04/30- Dr. López, recommended conservative management, now signed off. Neurology Dr. Malave has followed previously, signed off. Cardiovascular: Hypertension Norvasc 10 mg po daily, Cardura 1 mg peg daily, metoprolol 12.5 peg bid, hydralazine 10 mg per per peg q8 hours. clonidine prn SBP >160 Echo showed EF 25-30%, Grade I diastolic disfunction Pulmonary: Chronic Tracheostomy Now recurrent Acute hypoxemic respiratory failure Acute hypoxic respiratory failure - aspiration possible HCAP - previous episode resolved. Large left pneumothorax status post #10 Occitan chest tube 05/07 - resolved.Chest tube d/c'd 05/12/17 R pleural effusion - Continue with vent support keep sat >92% Ipratropium/albuterol aerosols every 6 hours with albuterol aerosols every 2 hours Pulm toilet, trach care SBT daily as gato- failing daily. Pulm is following GI/liver: Elevated transaminases, resolved Severe protein calorie malnutrition Small bowel ileus- resolved Hepatitis C antibody positive with negative genotype/viral load Hepatic steatosis Currently on PEG tube feeding with Glucerna 1.5 goal 45 cc an hour. KUB abdomen 10/10: No dilated bowel loops Beneprotein tid. Lansoprazole 30 mg daily for GI regimen Endocrine: Diabetes mellitus SSI high scale-dose every 6 hours , Levemir 7u Q12 /Renal/FEN: Monitor renal function. I/O's, electrolytes replacement as needed Increase Free water 300ml Q6 monitor sodium level. Heme: Chronic Rivaroxaban use prior to admission Leukocytosis...trending down Normocytic anemia Follow CBC and coags. ID: MDR Pseudomonas aeruginosa and pneumonia (HCAP) MSSA bacteremia - resolved. Serratia/staph aureus pneumonia - resolved. C glabrata UTI - resolved. Citrobacter UTI - resolved. Serratia/MSSA sputum VAP resolved Current relevant cultures: 09/25/17 -sputum culture - Pseudomonas aeruginosa, multidrug resistant ( including Zerbaxa and Avycaz resistance). On Colistin nebs started 09/30 till 10/21 Per ID sputum cx from 10/18: GNR( ? colonized) Prior cultures: Urine culture 04/26/17 sofie glabrata Blood culture 04/29/17 1 out of 4 bottles staph aureus Sputum culture 04/30/17 MSSA and Serratia. urine 05/07-> Serratia, treated. Urine 05/25: Citrobacter MSK: Left Intertroch Hip Fx s/p IMN 04/21/17. Vitamin D deficiency Sacral decubitus ulcer, Previously stage III, healing. Continue calcium vitamin D 250/125 one tablet 3x a day and cholecalciferol 5000 units daily. PT/OT evaluate and treat Maxisorb every 3 days/dressing changes every 3 days per wound care Continue Beneprotein one packet 3x a day Prophylaxis: SCDs. Heparin 5000 subcut q8 hours. GI - lansoprazole 30 mg by PEG tube daily ACCESS: PIV. level 2 Darrel Saleh MD Oct 22, 2017 19:13
[2017-10-23] VITALS (10 sets, daily range): BP systolic 127–157; BP diastolic 62–73; PULSE 52–101; RESP 18–24; TEMP 97.1–99.2; O2SAT 99–100
[2017-10-23] MEDS: DEXTROSE 50% IN WATER 50 ML VIAL(D50) IV PUSH PRN (01:15)
[2017-10-23] MEDS: HEPARIN SODIUM - SQ 10,000 UNITS/ML VIAL SQ SCH ×3 (05:08→21:19)
[2017-10-23] MEDS: ARTIFICIAL TEARS OPTH SOLN 15 ML BTL EACH EYE SCH ×3 (05:09→19:56)
[2017-10-23] MEDS: FREE WATER G-TUBE SCH ×4 (05:09→21:19)
[2017-10-23] MEDS: hydrALAZINE HCL 10 MG TAB PEG SCH ×3 (05:09→21:17)
[2017-10-23] MEDS: SODIUM CHLORIDE 0.9% FLUSH 5 ML FLUSH IV FLUSH SCH ×2 (09:00→19:55)
[2017-10-23] MEDS: CALCIUM/VITAMIN D 250 MG/125 U TAB PEG SCH ×3 (09:45→17:36)
[2017-10-23] MEDS: METOPROLOL TARTRATE 25 MG TAB PEG SCH ×2 (09:45→19:55)
[2017-10-23] MEDS: ASPIRIN 325 MG TAB DOBHOFF SCH (09:45)
[2017-10-23] MEDS: CHOLECALCIFEROL (VIT D3) 5000 UNIT CAP PEG SCH (09:45)
[2017-10-23] MEDS: LANSOPRAZOLE SOLUTAB 30 MG TAB NG SCH (09:45)
[2017-10-23] MEDS: LACTOBACILLUS ACIDOPHILUS TAB PEG SCH ×2 (09:46→19:55)
[2017-10-23] MEDS: DOXAZOSIN MESYLATE 1 MG TAB PEG SCH (09:47)
[2017-10-23] MEDS: CHLORHEXIDINE 0.12% (ORAL KIT) 15 ML CUP MT SCH ×2 (09:48→19:46)
[2017-10-23] MEDS: INSULIN NovoLIN REGULAR SUPPLEMENTAL SCALE SQ SCH ×3 (12:07→17:37)
[2017-10-23] MEDS: INSULIN DETEMIR 100 UNITS/ML VIAL SQ SCH ×2 (12:08)
--- NOTE | 2017-10-23 15:18 | PD.WCN.NOT ---
Wound Consult Description: Follow up on coccyx wound. Communicated with: GREGORY Hernandez [facility] Recommendation: 1. Please cleanse buttock area with incontinence barrier wipes and apply Calazime barrier cream BID and PRN and leave open to air 2. Apply skin prep to L medial foot DTI 3.. Continue to turn patient every 2 hours or PRN for comfort. Please use one ultrasorb for moisture. Please use flat sheet for repositioning on specialty surface. Additional Information: Patient seen on 4th floor [facility] for follow up of pressure injury to coccyx. Patient turned to R side with the assistance of Ford JENKINS [facility] and jingle writer. Patient is noted with macerated scar tissue that is open to air that measures ~ 1cm x~0.5cm. Skin is intact over buttocks and sacral and coccyx. Dignisheild in place without leaks. Also noted with external female catheter in place. Patient is laying on advanced IV alternating pressure low air loss surface. Soiled ultra sorb pads were replaced with clean ultrasorbs. Patient was positioned to R side with pillows in place for support. L medial foot is presenting with deep tissue injury that measures ~2cm x ~1cm. Wound was left open to air and skin prep was applied. Heel raiser boots were applied to offload pressure from bilateral heels. Ag[facility] Oct 23, 2017 15:18
--- NOTE | 2017-10-23 17:58 | MB ---
cc: MAGGIE YEH DPM DATE OF CONSULTATION 10/23/17 REASON FOR CONSULTATION Superficial ulcer of the left foot. HISTORY OF PRESENT ILLNESS This is a 77-year-old female. She is able to make eye contact. She is nonverbal in front of. She apparently stares into space. She is seen upright in a chair. She does not appear to be ambulatory. The patient has a history of hypertension, diabetes and CVA. She is status post left hip fracture in April. She developed a focal neurologic deficit. The patient apparently has been seen by the wound care team and the wound care team has made recommendations. However, I think the daughter requested a podiatric evaluation. PHYSICAL EXAMINATION All vital signs stable. The patient is awake, but I am unsure if she is comprehending what I am saying. Bilateral lower extremities examined. There is noted to be limited movement, slight pretibial and dorsal foot edema. Pulses are decreased, but they appear to be warm. The medial aspect of the left first MPJ appears to have a borderline full thickness eschar. The medial MPJ is non-boggy. There is no erythema. It appears to be stable. Sensation appears to be intact to noxious stimuli. LABORATORY FINDINGS White blood cell on 10/21 is 14, hemoglobin/hematocrit 9 and 28, platelet count 341. Chem-7 - sodium 149, potassium 4.5, chloride 113, CO2 29.2, BUN 78, creatinine 0.78, random glucose is 189. ASSESSMENT/PLAN Eschar of the medial foot. It appears to be uncomplicated. The last wound care visit from Agatha Hduson. I agree with assessment. I also agree with the treatment. If there is any instability that develops, please feel free to reconsult,, but I do not think this patient would benefit from a debridement. It would leave likely joint capsule exposed and rapid progression to osteomyelitis. Thank you for this consultation. KECIA Encinas/ /4:09 PM /5:25 PM
[2017-10-24] VITALS (14 sets, daily range): BP systolic 120–140; BP diastolic 58–70; PULSE 56–69; RESP 15–26; TEMP 97.2–98.9; O2SAT 95–100
[2017-10-24] MEDS: FREE WATER G-TUBE SCH ×3 (05:28→18:00)
[2017-10-24] MEDS: ARTIFICIAL TEARS OPTH SOLN 15 ML BTL EACH EYE SCH ×3 (05:28→20:03)
[2017-10-24] MEDS: INSULIN NovoLIN REGULAR SUPPLEMENTAL SCALE SQ SCH ×4 (06:00→18:58)
[2017-10-24] MEDS: hydrALAZINE HCL 10 MG TAB PEG SCH ×3 (06:04→20:01)
[2017-10-24] MEDS: HEPARIN SODIUM - SQ 10,000 UNITS/ML VIAL SQ SCH ×3 (06:04→20:02)
[2017-10-24] MEDS: CHOLECALCIFEROL (VIT D3) 5000 UNIT CAP PEG SCH (09:00)
[2017-10-24] MEDS: CHLORHEXIDINE 0.12% (ORAL KIT) 15 ML CUP MT SCH ×2 (09:00→20:01)
[2017-10-24] MEDS: LACTOBACILLUS ACIDOPHILUS TAB PEG SCH ×2 (09:00→20:01)
[2017-10-24] MEDS: SODIUM CHLORIDE 0.9% FLUSH 5 ML FLUSH IV FLUSH SCH ×2 (09:00→20:01)
[2017-10-24] MEDS: LANSOPRAZOLE SOLUTAB 30 MG TAB NG SCH (09:00)
[2017-10-24] MEDS: METOPROLOL TARTRATE 25 MG TAB PEG SCH ×2 (09:01→20:01)
[2017-10-24] MEDS: DOXAZOSIN MESYLATE 1 MG TAB PEG SCH (09:01)
[2017-10-24] MEDS: CALCIUM/VITAMIN D 250 MG/125 U TAB PEG SCH ×3 (11:40→18:25)
[2017-10-24] MEDS: ASPIRIN 325 MG TAB DOBHOFF SCH (11:40)
--- NOTE | 2017-10-24 13:38 | HHI.CCPN ---
Subjective Remarks/Hospital Course 04/24: 76-year-old female with a medical history significant for prior stroke, diabetes mellitus who was admitted with DKA and a hip fracture for which she underwent ORIF on 04/21. Patient developed altered mental status and was last noted to be okay around 5:30 AM. Subsequently there was a change in her mental status and she was noted to not be moving her right side for which stroke alert was called. Head CT showed large left MCA territory ischemic infarct with edema. Patient was transferred to the ICU by family medicine service in the critical care consult was requested. I evaluated the patient following arrival to the ICU. At that time she was laying in bed with her eyes open however not following commands and had a dense right hemiplegia. Patient was also evaluated by Dr. Malave from neurology. [facility] further discussed current event with patient's daughter following her arrival to the ICU. Per the daughter patient has been living with her since her stroke in 2014 and does ambulate however has been having problems with memory and incontinence as well as gait difficulties. She does not feel patient would want intubation or tracheostomy or PEG tube. 04/25: Patient remains encephalopathic, awake though not following commands consistently. Dense right hemiplegia persists. Appears to be awake enough to protect airway currently. Patient's daughter rescinded DNR and made a full code last evening. 04/26: Remains encephalopathic, not following commands. On Dobbhoff for tube feeds at 30 cc per hour. Had urinary retention and drained 2 L of urine after placing Moser catheter today. CT head done this morning with large left MCA territory infarct with left to right midline shift and significant cerebral edema. Hyperglycemia noted. Patient given mannitol earlier for increasing cerebral edema. 04/27: Remains encephalopathic, not following commands. On Dobbhoff tube feeds at 30 cc per hour. When into A. fib with RVR last night which responded with Lopressor 5 mg IV 1 dose. 04/28: Remains encephalopathic, arousable, not following commands. Moves left upper extremity spontaneously. Tolerating Dobbhoff tube feeds. Remains on nasal cannula. 04/29: Encephalopathic, eyes be arousable, moves left upper extremity spontaneously and occasionally opens eyes. Dense right hemiplegia and aphasia persists. On nasal cannula. Dobbhoff tube feeds being advanced. Patient was transfused 1 unit PRBCs yesterday. Urine culture with yeast from yesterday for which fluconazole being started. Had brief run of A. fib with RVR which improved with Lopressor IV, currently in sinus rhythm. 04/30: Worsening hypoxemic respiratory failure, currently on partial nonrebreather. Remains lethargic. WBC count increased from 14.6 today 20.7. Chest x-ray shows bilateral worsening infiltrates and small pleural effusions. Sodium 154, weight up by 8 KG. Albumin 1 mg Bumex 1. Also one dose of albumin. Remains in sinus tachycardia. Tmax 101.3 05/01: Patient was intubated yesterday for lack of airway protection, and severe hypoxemic respiratory failure from aspiration pneumonia involving multiple lobes. Patient is on the vent lethargic, no spontaneous eye opening. Chest x- ray remains unchanged. Remains intermittently febrile Tmax 101.3. WBC count improving 05/02: Remains critically ill with no improvement in mental status. Spiking fever of 101.7. Blood culture and sputum culture with staph aureus sputum also growing GNR, WBC count 22,000 now indicating worsening sepsis. Daughter still requesting aggressive care. Palliative care is following 05/03: S/P large area dominant hemisphere CVA. No neurological improvement. Now with pneumonia (infiltrate, fever, leukocytosis) and appropriate abx coverage. She will have a hard time surviving the hip fx, CVA, and pneumonia. Palliative Care needs to be a mainstay of our plan. 05/04: No improvement in neuro status. Sputum C&S allows us to narrow abx coverage to levaquin alone. Lungs remain quite congested. Enteral nutrition tolerated. 05/05: No improvement in neuro status. Moves left arm spontaneously. Flaccid right side. Unresponsive. Persistent mild hypoglycemia - will cut Levemir 50%. Abdomen more distended, check KUB. 05/06: CT head with massive left MCA infarction and > 1 cm shift in right handed woman. She opens eyes, does not track. 05/07: Patient open eyes. Attempts to respond. [place] speaking. Tolerating tube feeds. Positive bowel movement. Volume overloaded. 05/08: Tmax 99.4. Potassium being replaced. Ultrasound gallbladder currently pending. Transaminases are trending downward. Gently diurese. 05/09: Alk phos decreasing. Remains with good urine output. Neurological status not improving. 05/10: Fixed neuro deficit unchanged. Profound CVA. 05/11: Appears to track with eyes today. No improvement in motor function. Remains very edematous, diuretics doubled. 05/12: Continued thick secretions. Afebrile, leukocytosis resolved. 05/13: CT head with completed left MCA stroke, persistent edema and 5 mm shift away. Does not last long on SBTs - major decision now is trach/PEG. 05/14: Daughter has decided to proceed with trach and PEG. I have been pessimistic with her about chances for a meaningful recovery. 05/15: Plan for trach today. No change in neuro status. Still ventilator dependent. 05/16: Trach completed. Await PEG and disposition. 05/17: PEG placed 05/16. Start TFs today after nutrition consult. Work to place patient. 05/18: No improvement. Does open eyes, no focus or tracking. Completed large dominant (left) hemisphere CVA in right handed woman with severe deficit. Medicaid pending status, [facility] is following. 05/19: no improvements in neuro exam. ready for LTAC. will d/c moser and rectal tubes. 05/20: no changes or improvements. very difficult placement due to patient not [place] citizen. 05/21: no improvements. resting on vent overnight due to distress. 05/22: no neurologic changes. no improvements. attempted T-piece which failed after 10 minutes. 05/23: no improvements. poor prognosis. poor neuro exam. still failing weaning trials. 05/24: no improvements or changes. still failing t-piece trials. 05/25: No acute changes of improvement overnight. Failed CPAP due to apnea, tried again currently tolerating. Neurological exam unchanged. 05/26: No improvement in neurological function. 05/27: Patient has required Moser catheter because of breakdown of skin on upper thighs and groin. Urine has become infected, will treat. 05/28: Some drainage from around trach (placed 2 weeks ago). Will change out trach tube and inspect neck wound. I&O straight cath q6h order entered 05/17. 05/29: No improvement, remains obtunded. Failed CPAP trials yesterday and again today due to apnea. Moser placed due to persistent urinary retention 05/30: Obtunded, unresponsive. Failed SBTs, remains ventilator dependent. 05/31: Patient continues to fail SBT failed yesterday due to apnea. Neuro exam remains unchanged. 06/01: No acute changes overnight, 06/02: no changes. ekg done overnight for ? EKG changes seen on telemetry which were not visualized on EKG. 06/03: no improvements or changes. had long conversation with daughter yesterday. only facility which would accept patient is in [place] and daughter is refusing to allow patient to go there because it is "too far away." Daughter continues to push for aggressive care despite no improvements, and resistant to Hospice. Patient does not need acute inpatient therapy but lacks funding for appropriate disposition. 06/04: No acute events overnight, failed SBT due to apnea. 06/05: No acute events, continues to fail spontaneous breathing trials. Unable to wean 06/06 Currently tolerating CPAP. Will attempt TP today up to 4 hours. No acute events overnight 06/07: Tolerating trach collar/T-piece. Transfer soon. 06/08: Awaiting transfer. 06/09: Remains ventilator dependent. No improvement in neurological function. 06/10: No improvement. Daughter is not attending preplanned meetings to discuss disposition 06/12: Afebrile. Neurologically stable and unchanged. Noted sodium 135. Adding sodium chloride tablets 1 today. Not on free water.. Tolerating tube feeds at goal 45 cc an hour. 06/13: No improvement in neurological function. 06/14: No improvement. Fluid balance correct. Gas exchange acceptable. 06/15: No improvement. Obtunded and unresponsive. 06/16: no improvements in mental status. KUB overnight with dilated small bowel loops. given methylnaltrexone and erythromycin. today abdomen is soft and tolerating tube feeds. 06/17: tolerated t-piece x 6 hours yesterday. rested on cpap overnight. no changes in encephalopathy. 06/18: Currently on ventilator overnight. Multiple bowel movements. Thick yellow secretions noted in ventilator circuit. Opens eyes. 06/19: Afebrile. Tolerating stretcher chair yesterday on PSV. Tolerating tube feeding. Neurologically unchanged. 06/20: Afebrile. Resting in bed in no acute distress in sitting position. Currently on ventilator set sitting. Tolerated stretcher chair/PSV trial 6 hours yesterday. Neurologically unchanged. 06/21: Tmax 100.8. Patient with copious thick yellow secretions. Tolerating tube feeds. Positive bowel movement. Lasted only 1 hour PSV yesterday 06/22: Tmax 99.9. Continues to have thick secretions. Tolerating tube feeding. Positive BM. 06/23: Afebrile. Continues to have thick tracheal secretions from tracheostomy site. Tolerating tube feeding. 3 bowels movements. Opens eyes to stimulation. Stares at you but does not follow commands. 06/24: Remains encephalopathic, on mechanical ventilation via tracheostomy. Tolerating PEG feeds 06/25: Remains encephalopathic on mechanical ventilation. Tolerated C Pap +5 with pressure support +10 all day yesterday. Tolerating PEG feeds. 06/26: No improvement.Vent dependent still. 06/27: Remains encephalopathic, on mech vent via trach. Daily CPAP trials. 06/28: Unable to wean from ventilator. 06/29: Neurologically unchanged. Remains on mechanical ventilation. Daily C Pap trials ongoing. 06/30: Remains encephalopathic. On C Pap overnight. Tolerating tube feeds. 07/01: No change in neurologic status. On mechanical ventilation via tracheostomy. Tolerating tube feeds. 07/02: Remains encephalopathic. No change in neurologic status. On mechanical ventilation via tracheostomy. Daily C Pap trials ongoing. 07/03: Occasional spontaneous eye opening however remains encephalopathic. On mechanical ventilation via tracheostomy. 07/04: Tmax 99.2. Multiple bowel movements overnight. Tolerating tube feeds. On T piece trial at 5 L since noon yesterday. Otherwise neurologically unchanged. Daughter encouraged by movement of left leg. 07/05: Currently resting in bed on T piece 36 hours. Tolerates chair. No changes neurologically. Positive BM's. Tolerating her tube feeding. 07/06: Continue T-piece trials, if tolerated consider transfer to floor. 07/07: Extended T-piece trial. Plan transfer to floor. 07/09: Patient is experiencing apnea episodes and had to be placed back on higher FiO2.. Hold transfer. 07/10: X-ray left hip shows good anatomic alignment. Still requiring elevated FiO2. 07/11: Prealbumin 20, nutritional support is adequate and status is stable. No neurological improvement. 07/12: No improvement in neurological function. Continued acceptable respiratory effort. 07/13: No change. 10/03/17 Dr. Rizo notified hog sticker that patient would be transferring to ICU. Patient is known to [facility] service. She was originally admitted 04/20/17 after a fall with hip fracture resulting in ORIF 04/21. Postoperatively, she developed large R MCA stroke with midline shift. Her neurologic condition remained poor and she underwent trach 05/15/17 and PEG 05/16/17. She was eventually transitioned to Tpiece and transferred to floor. She has suffered from multiple infectious complications due to her persistent bedfast and trach dependent state. 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 She has been on trach collar with worsening hypoxemia therefore she is [place] [facility] CXR from yesterday demonstrates bilateral pulmonary infiltrates. She has also had hyperkalemia today up to 6.7 which has been treated with kayexalate, down to 6. 2: improvement in air space disease with diuresis and bronch yesterday. no overall improvements in chronic poor prognosis. unlikely to survive this hospital stay. daughter has poor insight into the gravity of her mother's medical condition. she will not recover meaningfully. 10/05: continuing to clinically improve from a respiratory standpoint. no improvements in overall poor function. off vent on t-piece today. can likely transition out of ICU tomorrow. 10/06 No events overnight. Remains on ventilator via trach. Afebrile. 10/07 No events overnight. Afebrile. 10/08 Patient is on ventilator via trach. afebrile. 10/09 No events overnight. Tolerating tube feeds. Afebrile. 10/10 Patient is on ventilators via trach. 10/11: Nursing reported patient intermittently follow commands today. BUN slightly elevated. Patient tolerating tube feeding 10/12: The patient tolerated CPAP for approximately 6 hours yesterday. No acute changes overnight. No neurological change in status. 10/13 No events overnight. Afebrile. 10/14 Patient remains on ventilator via trach. Afebrile. Didn't tolerate CPAP trials earlier today. Subjective 10/15: no changes. patient remains on the ventilator. unable to wean. 10/16: no improvements. no changes. PSV trials ongoing, not ready for SBT. 10/17 No events overnight. On CPAP. 10/18 Patient remains on ventilator via trach tolerating CPAP trials. 10/19 No events overnight. afebrile. WBC is trending down. 2/19 Patient is on CPAP with PS 15, PEEP:5 Awake, afebrile. 10/21, 10/22, 10/23: Remains on mechanical ventilation via tracheostomy. 10/24 No events overnight. On CPAP with PS 12, PEEP:5 and FIO2 30%,. Objective Vital Signs Date Time Temp Pulse Resp B/P (MAP) Pulse Ox O2 Delivery O2 Flow Rate FiO2 10/24/17 08:49 30 10/24/17 08:49 100 10/24/17 08:00 97.5 69 19 131/69 (89) 10/20/17 21:49 Ventilator Intake and Output 10/24/17 10/24/17 10/25/17 08:00 16:00 00:00 Intake Total 1072 ml Output Total 850 ml Balance 222 ml Result Diagram: 10/21/1715 10/21/17 0915 Imaging Last Impressions Chest X-Ray 10/15/17 0000 Signed Impressions: Service Date/Time: Sunday, October 15, 2017 11:45 - CONCLUSION: 1. Heart size is borderline with mild interstitial prominence characteristic of some degree of vascular congestion or volume overload. No lanny failure. 2. Atelectatic changes above the left hemidiaphragm with possible small left- sided effusion. Ananda Oneill MD Abdomen X-Ray 10/10/17 0000 Signed Impressions: Service Date/Time: Tuesday, October 10, 2017 11:35 - CONCLUSION: No dilated bowel loops. Benja Ramsey MD Thoracentesis 08/05/17 1535 Signed Impressions: Service Date/Time: Saturday, August 05, 2017 16:08 - CONCLUSION: Uncomplicated CT-guided thoracentesis. Sage Adler MD Chest Ultrasound 08/02/17 0000 Signed Impressions: Service Date/Time: Tuesday, August 01, 2017 22:06 - CONCLUSION: 1. Moderate right pleural effusion, as above. Alejo De La Vega MD Hip and Pelvis X-Ray 07/09/17 0000 Signed Impressions: Service Date/Time: Sunday, July 09, 2017 14:04 - CONCLUSION: Anatomic alignment. Ricardo Middleton MD FACR Liver Ultrasound 06/19/17 0000 Signed Impressions: Service Date/Time: June 13:20 - CONCLUSION: 1. Mildly increased echotexture of the liver characteristic of hepatic steatosis. 2. Gallbladder sludge. Obdulio Sam MD Head CT 05/15/17 0000 Signed Impressions: Service Date/Time: May 19:59 - CONCLUSION: 1. 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 2. No bleed or new/acute infarct. Obdulio Simms MD Gall Bladder Ultrasound 05/08/17 0000 Signed Impressions: Service Date/Time: May 08:23 - CONCLUSION: Focally unremarkable appearance of the gallbladder Obdulio Chun MD Abdomen/Pelvis CT 05/07/17 0000 Signed Impressions: Service Date/Time: Sunday, May 07, 2017 13:23 - CONCLUSION: 1. Large left pneumothorax. 2. Bilateral lower lobe consolidation and bilateral moderate size pleural effusions. 3. Significant soft tissue thickening of the right lateral chest wall and left gluteus muscle. 4. Mild ascites. The findings were called to Dr. Carney. Deangelo Zamora MD Chest CT 04/30/17 0000 Signed Impressions: Service Date/Time: Sunday, April 30, 2017 09:20 - CONCLUSION: 1. Bilateral pulmonary infiltrates more pronounced within the lower lobes with tiny bilateral pleural effusions. Material seen filling the lower lobe bronchi bilaterally either related to purulent material or perhaps mucus plugging. Deangelo Wren Jr., MD Carotid Artery Ultrasound 04/24/17 0000 Signed Impressions: Service Date/Time: April 09:45 - CONCLUSION: 1. No hemodynamically significant carotid artery stenosis. Arnie Middleton MD Hip X-Ray 04/21/17 0000 Signed Impressions: Service Date/Time: Friday, April 21, 2017 11:36 - CONCLUSION: Fluoroscopic images during placement of intramedullary siomara left femur. Benja Ramsey MD Objective Remarks GENERAL: Elderly female, laying in bed on mechanical ventilation SKIN: Warm and dry, adequately perfused. HEAD: Atraumatic. Normocephalic. mucous membranes moist. NECK: 8.[address] Trachea midline. No JVD. CARDIOVASCULAR: Regular rate and rhythm RESPIRATORY: no accessory muscle use. prvc, 30% fio2. GASTROINTESTINAL: Abdomen soft, non-tender, nondistended. PEG in place with tube feeds running, site benign appearing. MUSCULOSKELETAL: Extremities without clubbing, cyanosis, or edema. No obvious deformities. NEUROLOGICAL: Eyes open spontaneously, does not appear to track. L gaze preference. R hemiparesis. Localizes with LUE. Very slight withdrawal of LLE to noxious stimuli. Not following commands A/P Assessment and Plan Assessment: 77yF with severe encephalopathy secondary to large MCA CVA, without meaningful improvements over many months. family continues to press for aggressive care. Continue weaning attempts to separate from mechanical ventilation. poor prognosis for any meaningful recovery at this point. Neuro/Psych: Left MCA CVA - 5.5 mm of [id number] subfalcine herniation, diagnosed 04/24. Persistent right-sided hemiparesis. Prior History of stroke Continue Aspirin 325 mg by tube daily. Stroke occurred 04/24/17. Patient was not a candidate for thrombolysis per discussion with neurology and radiology at that time. Repeat head CT 05/15 showed slight improvement in the midline shift now 5.5 mm and mass effect Neurosurgery consulted 04/30- Dr. López, recommended conservative management, now signed off. Neurology Dr. Malave has followed previously, signed off. Cardiovascular: Hypertension Norvasc 10 mg po daily, Cardura 1 mg peg daily, metoprolol 12.5 peg bid, hydralazine 10 mg per per peg q8 hours. clonidine prn SBP >160 Echo showed EF 25-30%, Grade I diastolic disfunction Pulmonary: Chronic Tracheostomy Now recurrent Acute hypoxemic respiratory failure Acute hypoxic respiratory failure - aspiration possible HCAP - previous episode resolved. Large left pneumothorax status post #10 Bah[place] chest tube 05/07 - resolved.Chest tube d/c'd 05/12/17 R pleural effusion - Continue with vent support keep sat >92% Ipratropium/albuterol aerosols every 6 hours with albuterol aerosols every 2 hours Pulm toilet, trach care SBT daily as gato- failing daily. Pulm is following GI/liver: Elevated transaminases, resolved Severe protein calorie malnutrition Small bowel ileus- resolved Hepatitis C antibody positive with negative genotype/viral load Hepatic steatosis Currently on PEG tube feeding with Glucerna 1.5 goal 45 cc an hour. KUB abdomen 10/10: No dilated bowel loops Beneprotein tid. Lansoprazole 30 mg daily for GI regimen Endocrine: Diabetes mellitus SSI high scale-dose every 6 hours , Levemir 7u Q12 /Renal/FEN: Monitor renal function. I/O's, electrolytes replacement as needed Increase Free water 300ml Q6 monitor sodium level. Heme: Chronic Rivaroxaban use prior to admission Leukocytosis...trending down Normocytic anemia Follow CBC and coags. ID: MDR Pseudomonas aeruginosa and pneumonia (HCAP) MSSA bacteremia - resolved. Serratia/staph aureus pneumonia - resolved. C glabrata UTI - resolved. Citrobacter UTI - resolved. Serratia/MSSA sputum VAP resolved Current relevant cultures: 09/25/17 -sputum culture - Pseudomonas aeruginosa, multidrug resistant ( including Zerbaxa and Avycaz resistance). s/p Colistin nebs(09/30- 10/21) Per ID sputum cx from 10/18: Serratia) Prior cultures: Urine culture 04/26/17 sofie glabrata Blood culture 04/29/17 1 out of 4 bottles staph aureus Sputum culture 04/30/17 MSSA and Serratia. urine 05/07-> Serratia, treated. Urine 05/25: Citrobacter MSK: Left Intertroch Hip Fx s/p IMN 04/21/17. Vitamin D deficiency Sacral decubitus ulcer, Previously stage III, healing. Continue calcium vitamin D 250/125 one tablet 3x a day and cholecalciferol 5000 units daily. PT/OT evaluate and treat Maxisorb every 3 days/dressing changes every 3 days per wound care Continue Beneprotein one packet 3x a day Prophylaxis: SCDs. Heparin 5000 subcut q8 hours. GI - lansoprazole 30 mg by PEG tube daily ACCESS: PIV. level 2 Kristel Durant MD Oct 24, 2017 13:38
[2017-10-24] MEDS: INSULIN DETEMIR 100 UNITS/ML VIAL SQ SCH ×2 (13:51)
[2017-10-24 15:04] LABS: AUTOMATED NEUTROPHIL # 11.6 TH/MM3 (1.8-7.7); BASOPHIL # 0.1 TH/MM3 (0-0.2); BASOPHIL % 0.9 % (0.0-2.0); EOSINOPHIL # 0.5 TH/MM3 (0-0.4); EOSINOPHIL % 3.3 % (0.0-4.0); HEMOGLOBIN 8.2 GM/DL (11.6-15.3); LYMPH % 13.7 % (9.0-44.0); LYMPHOCYTE # 2.1 TH/MM3 (1.0-4.8); MEAN CORPUSCULAR HEMOGLOBIN 34.7 PG (27.0-34.0); MEAN CORPUSCULAR HGB CONC 35.7 % (32.0-36.0); MEAN PLATELET VOLUME 9.2 FL (7.0-11.0); MONO % 6.4 % (0.0-8.0); NEUT % 75.7 % (16.0-70.0); PLATELET COUNT 283 TH/MM3 (150-450); RED BLOOD COUNT 2.37 MIL/MM3 (4.00-5.30); RED CELL DISTRIBUTION WIDTH 16.4 % (11.6-17.2); WHITE BLOOD COUNT 15.4 TH/MM3 (4.0-11.0)
[2017-10-24 15:24] LABS: CALCIUM 8.3 MG/DL (8.5-10.1); CREATININE 0.45 MG/DL (0.50-1.00)
[2017-10-24 15:44] LABS: BANDS 9 % (0-6); LYMPHOCYTES 12 % (9-44); MONOCYTES 3 % (0-8); MYELOCYTES 3 % (0-0); NEUTROPHIL # MANUAL DIFF 12.8 TH/MM3 (1.8-7.7); POLYS (SEG NEUTROPHILS) 71 % (16-70)
[2017-10-24 15:46] LABS: DOHLE BODIES PRESENT (NONE SEEN)
[2017-10-25] VITALS (15 sets, daily range): BP systolic 108–142; BP diastolic 53–80; PULSE 37–60; RESP 11–21; TEMP 97.3–98.4; O2SAT 95–99
[2017-10-25] MEDS: INSULIN DETEMIR 100 UNITS/ML VIAL SQ SCH ×3 (00:02→23:55)
[2017-10-25] MEDS: hydrALAZINE HCL 10 MG TAB PEG SCH ×3 (05:56→19:29)
[2017-10-25] MEDS: FREE WATER G-TUBE SCH ×5 (05:57→23:59)
[2017-10-25] MEDS: HEPARIN SODIUM - SQ 10,000 UNITS/ML VIAL SQ SCH ×3 (05:57→19:29)
[2017-10-25] MEDS: ARTIFICIAL TEARS OPTH SOLN 15 ML BTL EACH EYE SCH ×3 (05:57→19:30)
[2017-10-25] MEDS: INSULIN NovoLIN REGULAR SUPPLEMENTAL SCALE SQ SCH ×5 (06:08→23:58)
[2017-10-25 07:34] LABS: AUTOMATED NEUTROPHIL # 8.9 TH/MM3 (1.8-7.7); BASOPHIL # 0.1 TH/MM3 (0-0.2); BASOPHIL % 0.8 % (0.0-2.0); EOSINOPHIL # 0.6 TH/MM3 (0-0.4); EOSINOPHIL % 4.8 % (0.0-4.0); HEMATOCRIT 23.1 % (35.0-46.0); LYMPH % 18.4 % (9.0-44.0); LYMPHOCYTE # 2.3 TH/MM3 (1.0-4.8); MEAN CELL VOLUME 96.2 FL (80.0-100.0); MEAN CORPUSCULAR HEMOGLOBIN 33.3 PG (27.0-34.0); MEAN CORPUSCULAR HGB CONC 34.6 % (32.0-36.0); MEAN PLATELET VOLUME 9.2 FL (7.0-11.0); MONO % 5.1 % (0.0-8.0); MONOCYTE # 0.6 TH/MM3 (0-0.9); NEUT % 70.9 % (16.0-70.0); PLATELET COUNT 290 TH/MM3 (150-450); RED CELL DISTRIBUTION WIDTH 15.8 % (11.6-17.2); WHITE BLOOD COUNT 12.6 TH/MM3 (4.0-11.0)
--- NOTE | 2017-10-25 07:43 | HHI.CCPN ---
Subjective Remarks/Hospital Course 04/24: 76-year-old female with a medical history significant for prior stroke, diabetes mellitus who was admitted with DKA and a hip fracture for which she underwent ORIF on 04/21. Patient developed altered mental status and was last noted to be okay around 5:30 AM. Subsequently there was a change in her mental status and she was noted to not be moving her right side for which stroke alert was called. Head CT showed large left MCA territory ischemic infarct with edema. Patient was transferred to the ICU by family medicine service in the critical care consult was requested. I evaluated the patient following arrival to the ICU. At that time she was laying in bed with her eyes open however not following commands and had a dense right hemiplegia. Patient was also evaluated by Dr. Malave from neurology. [facility] further discussed current event with patient's daughter following her arrival to the ICU. Per the daughter patient has been living with her since her stroke in 2014 and does ambulate however has been having problems with memory and incontinence as well as gait difficulties. She does not feel patient would want intubation or tracheostomy or PEG tube. 04/25: Patient remains encephalopathic, awake though not following commands consistently. Dense right hemiplegia persists. Appears to be awake enough to protect airway currently. Patient's daughter rescinded DNR and made a full code last evening. 04/26: Remains encephalopathic, not following commands. On Dobbhoff for tube feeds at 30 cc per hour. Had urinary retention and drained 2 L of urine after placing Moser catheter today. CT head done this morning with large left MCA territory infarct with left to right midline shift and significant cerebral edema. Hyperglycemia noted. Patient given mannitol earlier for increasing cerebral edema. 04/27: Remains encephalopathic, not following commands. On Dobbhoff tube feeds at 30 cc per hour. When into A. fib with RVR last night which responded with Lopressor 5 mg IV 1 dose. 04/28: Remains encephalopathic, arousable, not following commands. Moves left upper extremity spontaneously. Tolerating Dobbhoff tube feeds. Remains on nasal cannula. 04/29: Encephalopathic, eyes be arousable, moves left upper extremity spontaneously and occasionally opens eyes. Dense right hemiplegia and aphasia persists. On nasal cannula. Dobbhoff tube feeds being advanced. Patient was transfused 1 unit PRBCs yesterday. Urine culture with yeast from yesterday for which fluconazole being started. Had brief run of A. fib with RVR which improved with Lopressor IV, currently in sinus rhythm. 04/30: Worsening hypoxemic respiratory failure, currently on partial nonrebreather. Remains lethargic. WBC count increased from 14.6 today 20.7. Chest x-ray shows bilateral worsening infiltrates and small pleural effusions. Sodium 154, weight up by 8 KG. Albumin 1 mg Bumex 1. Also one dose of albumin. Remains in sinus tachycardia. Tmax 101.3 05/01: Patient was intubated yesterday for lack of airway protection, and severe hypoxemic respiratory failure from aspiration pneumonia involving multiple lobes. Patient is on the vent lethargic, no spontaneous eye opening. Chest x- ray remains unchanged. Remains intermittently febrile Tmax 101.3. WBC count improving 05/02: Remains critically ill with no improvement in mental status. Spiking fever of 101.7. Blood culture and sputum culture with staph aureus sputum also growing GNR, WBC count 22,000 now indicating worsening sepsis. Daughter still requesting aggressive care. Palliative care is following 05/03: S/P large area dominant hemisphere CVA. No neurological improvement. Now with pneumonia (infiltrate, fever, leukocytosis) and appropriate abx coverage. She will have a hard time surviving the hip fx, CVA, and pneumonia. Palliative Care needs to be a mainstay of our plan. 05/04: No improvement in neuro status. Sputum C&S allows us to narrow abx coverage to levaquin alone. Lungs remain quite congested. Enteral nutrition tolerated. 05/05: No improvement in neuro status. Moves left arm spontaneously. Flaccid right side. Unresponsive. Persistent mild hypoglycemia - will cut Levemir 50%. Abdomen more distended, check KUB. 05/06: CT head with massive left MCA infarction and > 1 cm shift in right handed woman. She opens eyes, does not track. 05/07: Patient open eyes. Attempts to respond. Emir[place] speaking. Tolerating tube feeds. Positive bowel movement. Volume overloaded. 05/08: Tmax 99.4. Potassium being replaced. Ultrasound gallbladder currently pending. Transaminases are trending downward. Gently diurese. 05/09: Alk phos decreasing. Remains with good urine output. Neurological status not improving. 05/10: Fixed neuro deficit unchanged. Profound CVA. 05/11: Appears to track with eyes today. No improvement in motor function. Remains very edematous, diuretics doubled. 05/12: Continued thick secretions. Afebrile, leukocytosis resolved. 05/13: CT head with completed left MCA stroke, persistent edema and 5 mm shift away. Does not last long on SBTs - major decision now is trach/PEG. 05/14: Daughter has decided to proceed with trach and PEG. I have been pessimistic with her about chances for a meaningful recovery. 05/15: Plan for trach today. No change in neuro status. Still ventilator dependent. 05/16: Trach completed. Await PEG and disposition. 05/17: PEG placed 05/16. Start TFs today after nutrition consult. Work to place patient. 05/18: No improvement. Does open eyes, no focus or tracking. Completed large dominant (left) hemisphere CVA in right handed woman with severe deficit. Medicaid pending status, [facility] is following. 05/19: no improvements in neuro exam. ready for LTAC. will d/c moser and rectal tubes. 05/20: no changes or improvements. very difficult placement due to patient not [place] citizen. 05/21: no improvements. resting on vent overnight due to distress. 05/22: no neurologic changes. no improvements. attempted T-piece which failed after 10 minutes. 05/23: no improvements. poor prognosis. poor neuro exam. still failing weaning trials. 05/24: no improvements or changes. still failing t-piece trials. 05/25: No acute changes of improvement overnight. Failed CPAP due to apnea, tried again currently tolerating. Neurological exam unchanged. 05/26: No improvement in neurological function. 05/27: Patient has required Moser catheter because of breakdown of skin on upper thighs and groin. Urine has become infected, will treat. 05/28: Some drainage from around trach (placed 2 weeks ago). Will change out trach tube and inspect neck wound. I&O straight cath q6h order entered 05/17. 05/29: No improvement, remains obtunded. Failed CPAP trials yesterday and again today due to apnea. Moser placed due to persistent urinary retention 05/30: Obtunded, unresponsive. Failed SBTs, remains ventilator dependent. 05/31: Patient continues to fail SBT failed yesterday due to apnea. Neuro exam remains unchanged. 06/01: No acute changes overnight, 06/02: no changes. ekg done overnight for ? EKG changes seen on telemetry which were not visualized on EKG. 06/03: no improvements or changes. had long conversation with daughter yesterday. only facility which would accept patient is in [place] and daughter is refusing to allow patient to go there because it is "too far away." Daughter continues to push for aggressive care despite no improvements, and resistant to Hospice. Patient does not need acute inpatient therapy but lacks funding for appropriate disposition. 06/04: No acute events overnight, failed SBT due to apnea. 06/05: No acute events, continues to fail spontaneous breathing trials. Unable to wean 06/06 Currently tolerating CPAP. Will attempt TP today up to 4 hours. No acute events overnight 06/07: Tolerating trach collar/T-piece. Transfer soon. 06/08: Awaiting transfer. 06/09: Remains ventilator dependent. No improvement in neurological function. 06/10: No improvement. Daughter is not attending preplanned meetings to discuss disposition 06/12: Afebrile. Neurologically stable and unchanged. Noted sodium 135. Adding sodium chloride tablets 1 today. Not on free water.. Tolerating tube feeds at goal 45 cc an hour. 06/13: No improvement in neurological function. 06/14: No improvement. Fluid balance correct. Gas exchange acceptable. 06/15: No improvement. Obtunded and unresponsive. 06/16: no improvements in mental status. KUB overnight with dilated small bowel loops. given methylnaltrexone and erythromycin. today abdomen is soft and tolerating tube feeds. 06/17: tolerated t-piece x 6 hours yesterday. rested on cpap overnight. no changes in encephalopathy. 06/18: Currently on ventilator overnight. Multiple bowel movements. Thick yellow secretions noted in ventilator circuit. Opens eyes. 06/19: Afebrile. Tolerating stretcher chair yesterday on PSV. Tolerating tube feeding. Neurologically unchanged. 06/20: Afebrile. Resting in bed in no acute distress in sitting position. Currently on ventilator set sitting. Tolerated stretcher chair/PSV trial 6 hours yesterday. Neurologically unchanged. 06/21: Tmax 100.8. Patient with copious thick yellow secretions. Tolerating tube feeds. Positive bowel movement. Lasted only 1 hour PSV yesterday 06/22: Tmax 99.9. Continues to have thick secretions. Tolerating tube feeding. Positive BM. 06/23: Afebrile. Continues to have thick tracheal secretions from tracheostomy site. Tolerating tube feeding. 3 bowels movements. Opens eyes to stimulation. Stares at you but does not follow commands. 06/24: Remains encephalopathic, on mechanical ventilation via tracheostomy. Tolerating PEG feeds 06/25: Remains encephalopathic on mechanical ventilation. Tolerated C Pap +5 with pressure support +10 all day yesterday. Tolerating PEG feeds. 06/26: No improvement.Vent dependent still. 06/27: Remains encephalopathic, on mech vent via trach. Daily CPAP trials. 06/28: Unable to wean from ventilator. 06/29: Neurologically unchanged. Remains on mechanical ventilation. Daily C Pap trials ongoing. 06/30: Remains encephalopathic. On C Pap overnight. Tolerating tube feeds. 07/01: No change in neurologic status. On mechanical ventilation via tracheostomy. Tolerating tube feeds. 07/02: Remains encephalopathic. No change in neurologic status. On mechanical ventilation via tracheostomy. Daily C Pap trials ongoing. 07/03: Occasional spontaneous eye opening however remains encephalopathic. On mechanical ventilation via tracheostomy. 07/04: Tmax 99.2. Multiple bowel movements overnight. Tolerating tube feeds. On T piece trial at 5 L since noon yesterday. Otherwise neurologically unchanged. Daughter encouraged by movement of left leg. 07/05: Currently resting in bed on T piece 36 hours. Tolerates chair. No changes neurologically. Positive BM's. Tolerating her tube feeding. 07/06: Continue T-piece trials, if tolerated consider transfer to floor. 07/07: Extended T-piece trial. Plan transfer to floor. 07/09: Patient is experiencing apnea episodes and had to be placed back on higher FiO2.. Hold transfer. 07/10: X-ray left hip shows good anatomic alignment. Still requiring elevated FiO2. 07/11: Prealbumin 20, nutritional support is adequate and status is stable. No neurological improvement. 07/12: No improvement in neurological function. Continued acceptable respiratory effort. 07/13: No change. 10/03/17 Dr. Rizo notified program dir that patient would be transferring to ICU. Patient is known to [facility] service. She was originally admitted 04/20/17 after a fall with hip fracture resulting in ORIF 04/21. Postoperatively, she developed large R MCA stroke with midline shift. Her neurologic condition remained poor and she underwent trach 05/15/17 and PEG 05/16/17. She was eventually transitioned to Tpiece and transferred to floor. She has suffered from multiple infectious complications due to her persistent bedfast and trach dependent state. 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 She has been on trach collar with worsening hypoxemia therefore she is transferred to [facility] [place]. CXR from yesterday demonstrates bilateral pulmonary infiltrates. She has also had hyperkalemia today up to 6.7 which has been treated with kayexalate, down to 6. 2: improvement in air space disease with diuresis and bronch yesterday. no overall improvements in chronic poor prognosis. unlikely to survive this hospital stay. daughter has poor insight into the gravity of her mother's medical condition. she will not recover meaningfully. 10/05: continuing to clinically improve from a respiratory standpoint. no improvements in overall poor function. off vent on t-piece today. can likely transition out of ICU tomorrow. 10/06 No events overnight. Remains on ventilator via trach. Afebrile. 10/07 No events overnight. Afebrile. 10/08 Patient is on ventilator via trach. afebrile. 10/09 No events overnight. Tolerating tube feeds. Afebrile. 10/10 Patient is on ventilators via trach. 10/11: Nursing reported patient intermittently follow commands today. BUN slightly elevated. Patient tolerating tube feeding 10/12: The patient tolerated CPAP for approximately 6 hours yesterday. No acute changes overnight. No neurological change in status. 10/13 No events overnight. Afebrile. 10/14 Patient remains on ventilator via trach. Afebrile. Didn't tolerate CPAP trials earlier today. 10/15: no changes. patient remains on the ventilator. unable to wean. 10/16: no improvements. no changes. PSV trials ongoing, not ready for SBT. 10/17 No events overnight. On CPAP. 10/18 Patient remains on ventilator via trach tolerating CPAP trials. 10/19 No events overnight. afebrile. WBC is trending down. 10/20 Patient is on CPAP with PS 15, PEEP:5 Awake, afebrile. 10/21, 10/22, 10/23: Remains on mechanical ventilation via tracheostomy. 10/24 No events overnight. On CPAP with PS 12, PEEP:5 and FIO2 30%,. Subjective 10/25 Labs pending. Afebrile. Objective Vital Signs Date Time Temp Pulse Resp B/P (MAP) Pulse Ox O2 Delivery O2 Flow Rate FiO2 10/25/17 04:34 95 30 10/25/17 04:00 97.7 60 18 138/60 (86) Intake and Output 10/25/17 10/25/17 10/26/17 08:00 16:00 00:00 Intake Total 1045 ml Balance 1045 ml Result Diagram: 10/24/17 1441 10/24/17 1441 Imaging Last Impressions Chest X-Ray 10/15/17 0000 Signed Impressions: Service Date/Time: Sunday, October 15, 2017 11:45 - CONCLUSION: 1. Heart size is borderline with mild interstitial prominence characteristic of some degree of vascular congestion or volume overload. No lanny failure. 2. Atelectatic changes above the left hemidiaphragm with possible small left- sided effusion. Ananda Oneill MD Abdomen X-Ray 10/10/17 0000 Signed Impressions: Service Date/Time: Tuesday, October 10, 2017 11:35 - CONCLUSION: No dilated bowel loops. Benja Ramsey MD Thoracentesis 08/05/17 1535 Signed Impressions: Service Date/Time: Saturday, August 05, 2017 16:08 - CONCLUSION: Uncomplicated CT-guided thoracentesis. Sage Adler MD Chest Ultrasound 08/02/17 0000 Signed Impressions: Service Date/Time: Tuesday, August 01, 2017 22:06 - CONCLUSION: 1. Moderate right pleural effusion, as above. Alejo De La Vega MD Hip and Pelvis X-Ray 07/09/17 0000 Signed Impressions: Service Date/Time: Sunday, July 09, 2017 14:04 - CONCLUSION: Anatomic alignment. Ricardo Middleton MD FACR Liver Ultrasound 06/19/17 0000 Signed Impressions: Service Date/Time: June 13:20 - CONCLUSION: 1. Mildly increased echotexture of the liver characteristic of hepatic steatosis. 2. Gallbladder sludge. Obdulio Sam MD Head CT 05/15/17 0000 Signed Impressions: Service Date/Time: May 19:59 - CONCLUSION: 1. 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 2. No bleed or new/acute infarct. Obdulio Simms MD Gall Bladder Ultrasound 05/08/17 0000 Signed Impressions: Service Date/Time: May 08:23 - CONCLUSION: Focally unremarkable appearance of the gallbladder Obdulio Chun MD Abdomen/Pelvis CT 05/07/17 0000 Signed Impressions: Service Date/Time: Sunday, May 07, 2017 13:23 - CONCLUSION: 1. Large left pneumothorax. 2. Bilateral lower lobe consolidation and bilateral moderate size pleural effusions. 3. Significant soft tissue thickening of the right lateral chest wall and left gluteus muscle. 4. Mild ascites. The findings were called to Dr. Carney. Deangelo Zamora MD Chest CT 04/30/17 0000 Signed Impressions: Service Date/Time: Sunday, April 30, 2017 09:20 - CONCLUSION: 1. Bilateral pulmonary infiltrates more pronounced within the lower lobes with tiny bilateral pleural effusions. Material seen filling the lower lobe bronchi bilaterally either related to purulent material or perhaps mucus plugging. Deangelo Wren Jr., MD Carotid Artery Ultrasound 04/24/17 0000 Signed Impressions: Service Date/Time: April 09:45 - CONCLUSION: 1. No hemodynamically significant carotid artery stenosis. Arnie Middleton MD Hip X-Ray 04/21/17 0000 Signed Impressions: Service Date/Time: Friday, April 21, 2017 11:36 - CONCLUSION: Fluoroscopic images during placement of intramedullary siomara left femur. Benja Ramsey MD Objective Remarks GENERAL: Elderly female, laying in bed on mechanical ventilation via trach. SKIN: Warm and dry, adequately perfused. 2 cm deep tissue injury over 1st MTP joint of left foot, skin intact. HEAD: Atraumatic. Normocephalic. mucous membranes moist. NECK: 8.[address] Trachea midline. No JVD. CARDIOVASCULAR: Regular rate and rhythm RESPIRATORY: breathing appears comfortable, no accessory muscle use, mild rhonchi on the right. prvc, 30% fio2. GASTROINTESTINAL: Abdomen soft, non-tender, nondistended. PEG in place with tube feeds running at goal, site benign appearing. Dignishield in place. : Purewick catheter in place. MUSCULOSKELETAL: Extremities without clubbing, cyanosis, or edema. No obvious deformities. NEUROLOGICAL: Eyes open spontaneously, L gaze preference. R side flaccid. Follows commands with LUE. Slight spontaneous movements of LLE. A/P Assessment and Plan Assessment: 77yF with severe encephalopathy secondary to large MCA CVA, without functional improvements over many months. Daughter's goals of care are aggressive. Continue weaning attempts to separate from mechanical ventilation. Neuro/Psych: Left MCA CVA - 5.5 mm of [id number] subfalcine herniation, diagnosed 04/24. Persistent right-sided hemiparesis. Also prior h/o Stroke Continue Aspirin 325 mg by tube daily. Stroke occurred 04/24/17. Patient was not a candidate for thrombolysis per discussion with neurology and radiology at that time. Repeat head CT 05/15 showed slight improvement in the midline shift now 5.5 mm and mass effect Neurosurgery consulted 04/30- Dr. López, recommended conservative management, now signed off. Neurology Dr. Malave has followed previously, signed off. Cardiovascular: Hypertension Chronic systolic and diastolic heart failure Norvasc 10 mg po daily, Cardura 1 mg peg daily, metoprolol 12.5 peg bid, hydralazine 10 mg per per peg q8 hours. clonidine prn SBP >160 Echo 10/06/17 showed EF 25-30%, Grade I diastolic disfunction Pulmonary: Chronic Tracheostomy Recurrent episode Acute hypoxemic respiratory failure 10/03/17. Acute hypoxic respiratory failure - aspiration possible HCAP - previous episode resolved. Large left pneumothorax status post #10 Italian chest tube 05/07 - resolved.Chest tube d/c'd 05/12/17 R pleural effusion - Dailu CPAP trials. Ipratropium/albuterol aerosols every 6 hours with albuterol aerosols every 2 hours Pulm toilet, trach care SBT daily as gato- failing daily. Pulm is following, Dr. Rizo GI/liver: Elevated transaminases, resolved Severe protein calorie malnutrition Small bowel ileus- resolved Hepatitis C antibody positive with negative genotype/viral load Hepatic steatosis Currently on PEG tube feeding with Glucerna 1.5 goal 45 cc an hour per nutrition rec 10/20/17. Free water flushes as per below KUB abdomen 10/10: No dilated bowel loops Beneprotein tid. Lansoprazole 30 mg daily for GI regimen Endocrine: Diabetes mellitus SSI high scale-dose every 6 hours , Levemir 7u Q12 /Renal/FEN: Hypernatremia, resolved Monitor renal function. I/O's, electrolytes replacement as needed Decrease Free water 200ml Q6 Heme: Chronic Rivaroxaban use prior to admission Leukocytosis...trending down Normocytic anemia Follow CBC and coags. ID: MDR Pseudomonas aeruginosa and pneumonia (HCAP) MSSA bacteremia - resolved. Serratia/staph aureus pneumonia - resolved. C glabrata UTI - resolved. Citrobacter UTI - resolved. Serratia/MSSA sputum VAP resolved Current relevant cultures: 09/25/17 -sputum culture - Pseudomonas aeruginosa, multidrug resistant ( including Zerbaxa and Avycaz resistance). s/p Colistin nebs(09/30- 10/21) Per ID sputum cx from 10/18: Serratia) Lactobacillus 1 tab bid Prior cultures: Urine culture 04/26/17 sofie glabrata Blood culture 04/29/17 1 out of 4 bottles staph aureus Sputum culture 04/30/17 MSSA and Serratia. urine 05/07-> Serratia, treated. Urine 05/25: Citrobacter MSK: Left Intertroch Hip Fx s/p IMN 04/21/17. Vitamin D deficiency Sacral decubitus ulcer, Previously stage III, healing. Nonstageable pressure wound MTP L foot - Podiatry evaluated 10/23 and recommended against debridement because it would likely leave joint capsule exposed with rapid progression to osteomyelitis. Wound care following. Continue calcium vitamin D 250/125 one tablet 3x a day and cholecalciferol 5000 units daily. PT/OT evaluate and treat Maxisorb every 3 days/dressing changes every 3 days per wound care Continue Beneprotein one packet 3x a day Prophylaxis: SCDs. Heparin 5000 subcut q8 hours. GI - lansoprazole 30 mg by PEG tube daily ACCESS: PIV. level 1 followup Sherita Torres MD Oct 25, 2017 07:43
[2017-10-25] MEDS: CALCIUM/VITAMIN D 250 MG/125 U TAB PEG SCH ×3 (07:53→17:28)
[2017-10-25] MEDS: LACTOBACILLUS ACIDOPHILUS TAB PEG SCH ×2 (07:53→19:28)
[2017-10-25] MEDS: LANSOPRAZOLE SOLUTAB 30 MG TAB NG SCH (07:53)
[2017-10-25] MEDS: METOPROLOL TARTRATE 25 MG TAB PEG SCH ×2 (07:53→19:28)
[2017-10-25] MEDS: ASPIRIN 325 MG TAB DOBHOFF SCH (07:53)
[2017-10-25] MEDS: DOXAZOSIN MESYLATE 1 MG TAB PEG SCH (07:53)
[2017-10-25] MEDS: CHOLECALCIFEROL (VIT D3) 5000 UNIT CAP PEG SCH (07:54)
[2017-10-25] MEDS: SODIUM CHLORIDE 0.9% FLUSH 5 ML FLUSH IV FLUSH SCH ×2 (07:54→19:29)
[2017-10-25] MEDS: CHLORHEXIDINE 0.12% (ORAL KIT) 15 ML CUP MT SCH ×2 (07:54→19:33)
[2017-10-25 07:57] LABS: BICARBONATE 28.5 MEQ/L (21.0-32.0); CALCIUM 8.4 MG/DL (8.5-10.1); CREATININE 0.48 MG/DL (0.50-1.00)
[2017-10-25 08:24] LABS: BANDS 8 % (0-6); LYMPHOCYTES 13 % (9-44); METAMYELOCYTES 2 % (0-1); MONOCYTES 12 % (0-8); MYELOCYTES 2 % (0-0); NEUTROPHIL # MANUAL DIFF 9.1 TH/MM3 (1.8-7.7); POLYS (SEG NEUTROPHILS) 60 % (16-70)
[2017-10-25 08:25] LABS: TOXIC GRANULATION 1+ (NORMAL)
--- NOTE | 2017-10-25 10:00 | HHI.PR ---
Subjective Remarks Patient remains on ventilator via trach. Tolerating CPAP trials with PS 12, PEEP : 5 and FIO2 30%. Afebrile. Objective Vital Signs Vital Signs Date Time Temp Pulse Resp B/P (MAP) Pulse Ox O2 Delivery O2 Flow Rate FiO2 10/25/17 08:27 99 30 10/25/17 08:27 30 10/25/17 08:24 99 30 10/25/17 04:34 95 30 10/25/17 04:00 30 10/25/17 04:00 97.7 60 18 138/60 (86) 98 10/25/17 01:13 99 30 10/25/17 00:00 30 10/25/17 00:00 98.4 56 18 130/60 (83) 99 10/24/17 21:00 30 10/24/17 20:25 100 30 10/24/17 20:00 30 10/24/17 20:00 97.7 69 20 123/58 (79) 99 10/24/17 20:00 69 10/24/17 16:02 99 30 10/24/17 16:00 97.7 59 15 128/60 (82) 99 10/24/17 16:00 30 10/24/17 14:02 99 30 10/24/17 12:00 97.2 62 26 121/59 (79) 97 10/24/17 12:00 30 10/24/17 11:45 99 30 I/O 10/24/17 10/24/17 10/24/17 10/25/17 10/25/17 10/25/17 07:00 15:00 23:00 07:00 15:00 23:00 Intake Total 1072 ml 870 ml 1045 ml Output Total 850 ml 100 ml Balance 222 ml 770 ml 1045 ml Intake Oral 0 ml IV Total 0 ml Tube Feeding 472 ml 570 ml 445 ml Other 600 ml 300 ml 600 ml Output Urine Total 800 ml 0 ml Stool Total 50 ml 100 ml # Voids 1 4 # Bowel Movements 0 Result Diagram: 10/25/17 0710 10/25/17 0710 Other Results Laboratory Tests Test 10/24/17 14:41 10/25/17 07:10 White Blood Count 15.4 TH/MM3 12.6 TH/MM3 Red Blood Count 2.37 MIL/MM3 2.40 MIL/MM3 Hemoglobin 8.2 GM/DL 8.0 GM/DL Hematocrit 23.0 % 23.1 % Mean Corpuscular Volume 97.0 FL 96.2 FL Mean Corpuscular Hemoglobin 34.7 PG 33.3 PG Mean Corpuscular Hemoglobin Concent 35.7 % 34.6 % Red Cell Distribution Width 16.4 % 15.8 % Platelet Count 283 TH/MM3 290 TH/MM3 Mean Platelet Volume 9.2 FL 9.2 FL Neutrophils (%) (Auto) 75.7 % 70.9 % Lymphocytes (%) (Auto) 13.7 % 18.4 % Monocytes (%) (Auto) 6.4 % 5.1 % Eosinophils (%) (Auto) 3.3 % 4.8 % Basophils (%) (Auto) 0.9 % 0.8 % Neutrophils # (Auto) 11.6 TH/MM3 8.9 TH/MM3 Lymphocytes # (Auto) 2.1 TH/MM3 2.3 TH/MM3 Monocytes # (Auto) 1.0 TH/MM3 0.6 TH/MM3 Eosinophils # (Auto) 0.5 TH/MM3 0.6 TH/MM3 Basophils # (Auto) 0.1 TH/MM3 0.1 TH/MM3 CBC Comment AUTO DIFF AUTO DIFF Differential Total Cells Counted 100 100 Neutrophils % (Manual) 71 % 60 % Band Neutrophils % 9 % 8 % Lymphocytes % 12 % 13 % Monocytes % 3 % 12 % Eosinophils % 2 % 3 % Neutrophils # (Manual) 12.8 TH/MM3 9.1 TH/MM3 Myelocytes 3 % 2 % Differential Comment FINAL DIFF MANUAL FINAL DIFF MANUAL Dohle Bodies PRESENT Platelet Estimate NORMAL NORMAL Platelet Morphology Comment NORMAL NORMAL Blood Urea Nitrogen 46 MG/DL 37 MG/DL Creatinine 0.45 MG/DL 0.48 MG/DL Random Glucose 183 MG/DL 155 MG/DL Calcium Level 8.3 MG/DL 8.4 MG/DL Sodium Level 136 MEQ/L 137 MEQ/L Potassium Level 4.7 MEQ/L 4.5 MEQ/L Chloride Level 104 MEQ/L 103 MEQ/L Carbon Dioxide Level 29.0 MEQ/L 28.5 MEQ/L Anion Gap 3 MEQ/L 6 MEQ/L Estimat Glomerular Filtration Rate 136 ML/MIN 126 ML/MIN Metamyelocytes 2 % Toxic Granulation 1+ Polychromasia 2.0 % Objective Remarks GENERAL: Elderly female,NAD SKIN: Warm and dry. HEAD: Normocephalic. EYES: No scleral icterus. No injection or drainage. NECK: Supple, trachea midline. No JVD or lymphadenopathy. + trach CARDIOVASCULAR: Regular rate and rhythm without murmurs, gallops, or rubs. RESPIRATORY: Breath sounds equal bilaterally. No accessory muscle use. GASTROINTESTINAL: Abdomen soft, non-tender, nondistended. MUSCULOSKELETAL: No cyanosis, or edema. BACK: Nontender without obvious deformity. No CVA tenderness. A/P Assessment and Plan VDRF ,S/P Trach CVA Pneumonia Atelectasis Pseudomonas Tracheobronchitis, PLAN: Continue with vent support keep sat >92% Bronchodilators, ICU vent bundle SBT daily as gato. Pulm toilet, trach care Off abx , monitor for signs of infections ( Fever, WBC) WBC trending down Continue with tube feeds- Glucerna 1.5 with goal rate 45ml/hr GI/DVT prophylaxis Continue treatment plan Kristel Durant MD Oct 25, 2017 10:00
[2017-10-25] MEDS: RESP: ALBUTEROL 2.5 MG/IPRATROPIUM 0.5 MG NEB (SCH) NEB ×2 (11:48→16:38)
[2017-10-26] VITALS (12 sets, daily range): BP systolic 119–136; BP diastolic 54–64; PULSE 55–93; RESP 16–20; TEMP 98.2–98.9; O2SAT 97–99
[2017-10-26] MEDS: RESP: ALBUTEROL 2.5 MG/IPRATROPIUM 0.5 MG NEB (SCH) NEB ×4 (03:24→19:50)
[2017-10-26] MEDS: FREE WATER G-TUBE SCH ×3 (06:00→17:18)
[2017-10-26] MEDS: ARTIFICIAL TEARS OPTH SOLN 15 ML BTL EACH EYE SCH ×3 (06:00→21:50)
[2017-10-26] MEDS: INSULIN NovoLIN REGULAR SUPPLEMENTAL SCALE SQ SCH ×3 (06:00→17:18)
[2017-10-26] MEDS: hydrALAZINE HCL 10 MG TAB PEG SCH ×3 (06:07→21:49)
[2017-10-26] MEDS: HEPARIN SODIUM - SQ 10,000 UNITS/ML VIAL SQ SCH ×3 (06:07→21:50)
--- NOTE | 2017-10-26 06:26 | HHI.CCPN ---
Subjective Remarks/Hospital Course 04/24: 76-year-old female with a medical history significant for prior stroke, diabetes mellitus who was admitted with DKA and a hip fracture for which she underwent ORIF on 04/21. Patient developed altered mental status and was last noted to be okay around 5:30 AM. Subsequently there was a change in her mental status and she was noted to not be moving her right side for which stroke alert was called. Head CT showed large left MCA territory ischemic infarct with edema. Patient was transferred to the ICU by family medicine service in the critical care consult was requested. I evaluated the patient following arrival to the ICU. At that time she was laying in bed with her eyes open however not following commands and had a dense right hemiplegia. Patient was also evaluated by Dr. Malave from neurology. [facility] further discussed current event with patient's daughter following her arrival to the ICU. Per the daughter patient has been living with her since her stroke in 2014 and does ambulate however has been having problems with memory and incontinence as well as gait difficulties. She does not feel patient would want intubation or tracheostomy or PEG tube. 04/25: Patient remains encephalopathic, awake though not following commands consistently. Dense right hemiplegia persists. Appears to be awake enough to protect airway currently. Patient's daughter rescinded DNR and made a full code last evening. 04/26: Remains encephalopathic, not following commands. On Dobbhoff for tube feeds at 30 cc per hour. Had urinary retention and drained 2 L of urine after placing Moser catheter today. CT head done this morning with large left MCA territory infarct with left to right midline shift and significant cerebral edema. Hyperglycemia noted. Patient given mannitol earlier for increasing cerebral edema. 04/27: Remains encephalopathic, not following commands. On Dobbhoff tube feeds at 30 cc per hour. When into A. fib with RVR last night which responded with Lopressor 5 mg IV 1 dose. 04/28: Remains encephalopathic, arousable, not following commands. Moves left upper extremity spontaneously. Tolerating Dobbhoff tube feeds. Remains on nasal cannula. 04/29: Encephalopathic, eyes be arousable, moves left upper extremity spontaneously and occasionally opens eyes. Dense right hemiplegia and aphasia persists. On nasal cannula. Dobbhoff tube feeds being advanced. Patient was transfused 1 unit PRBCs yesterday. Urine culture with yeast from yesterday for which fluconazole being started. Had brief run of A. fib with RVR which improved with Lopressor IV, currently in sinus rhythm. 04/30: Worsening hypoxemic respiratory failure, currently on partial nonrebreather. Remains lethargic. WBC count increased from 14.6 today 20.7. Chest x-ray shows bilateral worsening infiltrates and small pleural effusions. Sodium 154, weight up by 8 KG. Albumin 1 mg Bumex 1. Also one dose of albumin. Remains in sinus tachycardia. Tmax 101.3 05/01: Patient was intubated yesterday for lack of airway protection, and severe hypoxemic respiratory failure from aspiration pneumonia involving multiple lobes. Patient is on the vent lethargic, no spontaneous eye opening. Chest x- ray remains unchanged. Remains intermittently febrile Tmax 101.3. WBC count improving 05/02: Remains critically ill with no improvement in mental status. Spiking fever of 101.7. Blood culture and sputum culture with staph aureus sputum also growing GNR, WBC count 22,000 now indicating worsening sepsis. Daughter still requesting aggressive care. Palliative care is following 05/03: S/P large area dominant hemisphere CVA. No neurological improvement. Now with pneumonia (infiltrate, fever, leukocytosis) and appropriate abx coverage. She will have a hard time surviving the hip fx, CVA, and pneumonia. Palliative Care needs to be a mainstay of our plan. 05/04: No improvement in neuro status. Sputum C&S allows us to narrow abx coverage to levaquin alone. Lungs remain quite congested. Enteral nutrition tolerated. 05/05: No improvement in neuro status. Moves left arm spontaneously. Flaccid right side. Unresponsive. Persistent mild hypoglycemia - will cut Levemir 50%. Abdomen more distended, check KUB. 05/06: CT head with massive left MCA infarction and > 1 cm shift in right handed woman. She opens eyes, does not track. 05/07: Patient open eyes. Attempts to respond. Moroccan speaking. Tolerating tube feeds. Positive bowel movement. Volume overloaded. 05/08: Tmax 99.4. Potassium being replaced. Ultrasound gallbladder currently pending. Transaminases are trending downward. Gently diurese. 05/09: Alk phos decreasing. Remains with good urine output. Neurological status not improving. 05/10: Fixed neuro deficit unchanged. Profound CVA. 05/11: Appears to track with eyes today. No improvement in motor function. Remains very edematous, diuretics doubled. 05/12: Continued thick secretions. Afebrile, leukocytosis resolved. 05/13: CT head with completed left MCA stroke, persistent edema and 5 mm shift away. Does not last long on SBTs - major decision now is trach/PEG. 05/14: Daughter has decided to proceed with trach and PEG. I have been pessimistic with her about chances for a meaningful recovery. 05/15: Plan for trach today. No change in neuro status. Still ventilator dependent. 05/16: Trach completed. Await PEG and disposition. 05/17: PEG placed 05/16. Start TFs today after nutrition consult. Work to place patient. 05/18: No improvement. Does open eyes, no focus or tracking. Completed large dominant (left) hemisphere CVA in right handed woman with severe deficit. Medicaid pending status, [facility] is following. 05/19: no improvements in neuro exam. ready for LTAC. will d/c moser and rectal tubes. 05/20: no changes or improvements. very difficult placement due to patient not [place] citizen. 05/21: no improvements. resting on vent overnight due to distress. 05/22: no neurologic changes. no improvements. attempted T-piece which failed after 10 minutes. 05/23: no improvements. poor prognosis. poor neuro exam. still failing weaning trials. 05/24: no improvements or changes. still failing t-piece trials. 05/25: No acute changes of improvement overnight. Failed CPAP due to apnea, tried again currently tolerating. Neurological exam unchanged. 05/26: No improvement in neurological function. 05/27: Patient has required Moser catheter because of breakdown of skin on upper thighs and groin. Urine has become infected, will treat. 05/28: Some drainage from around trach (placed 2 weeks ago). Will change out trach tube and inspect neck wound. I&O straight cath q6h order entered 05/17. 05/29: No improvement, remains obtunded. Failed CPAP trials yesterday and again today due to apnea. Moser placed due to persistent urinary retention 05/30: Obtunded, unresponsive. Failed SBTs, remains ventilator dependent. 05/31: Patient continues to fail SBT failed yesterday due to apnea. Neuro exam remains unchanged. 06/01: No acute changes overnight, 06/02: no changes. ekg done overnight for ? EKG changes seen on telemetry which were not visualized on EKG. 06/03: no improvements or changes. had long conversation with daughter yesterday. only facility which would accept patient is in [place] and daughter is refusing to allow patient to go there because it is "too far away." Daughter continues to push for aggressive care despite no improvements, and resistant to Hospice. Patient does not need acute inpatient therapy but lacks funding for appropriate disposition. 06/04: No acute events overnight, failed SBT due to apnea. 06/05: No acute events, continues to fail spontaneous breathing trials. Unable to wean 06/06 Currently tolerating CPAP. Will attempt TP today up to 4 hours. No acute events overnight 06/07: Tolerating trach collar/T-piece. Transfer soon. 06/08: Awaiting transfer. 06/09: Remains ventilator dependent. No improvement in neurological function. 06/10: No improvement. Daughter is not attending preplanned meetings to discuss disposition 06/12: Afebrile. Neurologically stable and unchanged. Noted sodium 135. Adding sodium chloride tablets 1 today. Not on free water.. Tolerating tube feeds at goal 45 cc an hour. 06/13: No improvement in neurological function. 06/14: No improvement. Fluid balance correct. Gas exchange acceptable. 06/15: No improvement. Obtunded and unresponsive. 06/16: no improvements in mental status. KUB overnight with dilated small bowel loops. given methylnaltrexone and erythromycin. today abdomen is soft and tolerating tube feeds. 06/17: tolerated t-piece x 6 hours yesterday. rested on cpap overnight. no changes in encephalopathy. 06/18: Currently on ventilator overnight. Multiple bowel movements. Thick yellow secretions noted in ventilator circuit. Opens eyes. 06/19: Afebrile. Tolerating stretcher chair yesterday on PSV. Tolerating tube feeding. Neurologically unchanged. 06/20: Afebrile. Resting in bed in no acute distress in sitting position. Currently on ventilator set sitting. Tolerated stretcher chair/PSV trial 6 hours yesterday. Neurologically unchanged. 06/21: Tmax 100.8. Patient with copious thick yellow secretions. Tolerating tube feeds. Positive bowel movement. Lasted only 1 hour PSV yesterday 06/22: Tmax 99.9. Continues to have thick secretions. Tolerating tube feeding. Positive BM. 06/23: Afebrile. Continues to have thick tracheal secretions from tracheostomy site. Tolerating tube feeding. 3 bowels movements. Opens eyes to stimulation. Stares at you but does not follow commands. 06/24: Remains encephalopathic, on mechanical ventilation via tracheostomy. Tolerating PEG feeds 06/25: Remains encephalopathic on mechanical ventilation. Tolerated C Pap +5 with pressure support +10 all day yesterday. Tolerating PEG feeds. 06/26: No improvement.Vent dependent still. 06/27: Remains encephalopathic, on mech vent via trach. Daily CPAP trials. 06/28: Unable to wean from ventilator. 06/29: Neurologically unchanged. Remains on mechanical ventilation. Daily C Pap trials ongoing. 06/30: Remains encephalopathic. On C Pap overnight. Tolerating tube feeds. 07/01: No change in neurologic status. On mechanical ventilation via tracheostomy. Tolerating tube feeds. 07/02: Remains encephalopathic. No change in neurologic status. On mechanical ventilation via tracheostomy. Daily C Pap trials ongoing. 07/03: Occasional spontaneous eye opening however remains encephalopathic. On mechanical ventilation via tracheostomy. 07/04: Tmax 99.2. Multiple bowel movements overnight. Tolerating tube feeds. On T piece trial at 5 L since noon yesterday. Otherwise neurologically unchanged. Daughter encouraged by movement of left leg. 07/05: Currently resting in bed on T piece 36 hours. Tolerates chair. No changes neurologically. Positive BM's. Tolerating her tube feeding. 07/06: Continue T-piece trials, if tolerated consider transfer to floor. 07/07: Extended T-piece trial. Plan transfer to floor. 07/09: Patient is experiencing apnea episodes and had to be placed back on higher FiO2.. Hold transfer. 07/10: X-ray left hip shows good anatomic alignment. Still requiring elevated FiO2. 07/11: Prealbumin 20, nutritional support is adequate and status is stable. No neurological improvement. 07/12: No improvement in neurological function. Continued acceptable respiratory effort. 07/13: No change. 10/03/17 Dr. Rizo notified commercial stripper that patient would be transferring to ICU. Patient is known to [facility] service. She was originally admitted 04/20/17 after a fall with hip fracture resulting in ORIF 04/21. Postoperatively, she developed large R MCA stroke with midline shift. Her neurologic condition remained poor and she underwent trach 05/15/17 and PEG 05/16/17. She was eventually transitioned to Tpiece and transferred to floor. She has suffered from multiple infectious complications due to her persistent bedfast and trach dependent state. 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 She has been on trach collar with worsening hypoxemia therefore she is [place] [facility] [place]R from yesterday demonstrates bilateral pulmonary infiltrates. She has also had hyperkalemia today up to 6.7 which has been treated with kayexalate, down to 6. 2: improvement in air space disease with diuresis and bronch yesterday. no overall improvements in chronic poor prognosis. unlikely to survive this hospital stay. daughter has poor insight into the gravity of her mother's medical condition. she will not recover meaningfully. 10/05: continuing to clinically improve from a respiratory standpoint. no improvements in overall poor function. off vent on t-piece today. can likely transition out of ICU tomorrow. 10/06 No events overnight. Remains on ventilator via trach. Afebrile. 10/07 No events overnight. Afebrile. 10/08 Patient is on ventilator via trach. afebrile. 10/09 No events overnight. Tolerating tube feeds. Afebrile. 10/10 Patient is on ventilators via trach. 10/11: Nursing reported patient intermittently follow commands today. BUN slightly elevated. Patient tolerating tube feeding 10/12: The patient tolerated CPAP for approximately 6 hours yesterday. No acute changes overnight. No neurological change in status. 10/13 No events overnight. Afebrile. 10/14 Patient remains on ventilator via trach. Afebrile. Didn't tolerate CPAP trials earlier today. 10/15: no changes. patient remains on the ventilator. unable to wean. 10/16: no improvements. no changes. PSV trials ongoing, not ready for SBT. 10/17 No events overnight. On CPAP. 10/18 Patient remains on ventilator via trach tolerating CPAP trials. 10/19 No events overnight. afebrile. WBC is trending down. 10/20 Patient is on CPAP with PS 15, PEEP:5 Awake, afebrile. 10/21, 10/22, 10/23: Remains on mechanical ventilation via tracheostomy. 10/24 No events overnight. On CPAP with PS 12, PEEP:5 and FIO2 30%,. 10/25 Labs pending. Afebrile. Subjective 10/26: Afebrile. Bradycardic. No new issues past 24 hours. Appears comfortable on Vent. Objective Vital Signs Date Time Temp Pulse Resp B/P (MAP) Pulse Ox O2 Delivery O2 Flow Rate FiO2 10/26/17 04:00 30 10/26/17 04:00 98.5 57 18 131/59 (83) 98 Intake and Output 10/26/17 10/26/17 10/27/17 08:00 16:00 00:00 Intake Total 945 ml Output Total 900 ml Balance 45 ml Result Diagram: 10/25/17 0710 10/25/17 0710 Other Results Microbiology Date/Time Source Procedure Growth Status 07/25/17 10:35 Blood Peripheral Aerobic Blood Culture - Final NO GROWTH IN 5 DAYS Complete 07/25/17 10:35 Blood Peripheral Anaerobic Blood Culture - Final NO GROWTH IN 5 DAYS Complete 08/05/17 14:25 Fluid Pleural Fluid Gram Stain - Final Complete 08/05/17 14:25 Fluid Pleural Fluid Body Fluid Culture - Final NO GROWTH IN 72 HRS.--AEROBICALLY OR ... Complete 05/29/17 17:15 Stool Stool Stool Occult Blood (JEFFREY) - Final HEMOCCULT NEGATIVE Complete 10/18/17 16:30 Sputum Endotracheal Gram Stain - Final Complete 10/18/17 16:30 Sputum Culture - Final Serratia Marcescens Complete 10/18/17 18:00 Urine Catheterized Urine Urine Culture - Final Enterococcus Faecium Vre Complete Imaging Last Impressions Chest X-Ray 10/15/17 0000 Signed Impressions: Service Date/Time: Sunday, October 15, 2017 11:45 - CONCLUSION: 1. Heart size is borderline with mild interstitial prominence characteristic of some degree of vascular congestion or volume overload. No lanny failure. 2. Atelectatic changes above the left hemidiaphragm with possible small left- sided effusion. Ananda Oneill MD Abdomen X-Ray 10/10/17 0000 Signed Impressions: Service Date/Time: Tuesday, October 10, 2017 11:35 - CONCLUSION: No dilated bowel loops. Benja Ramsey MD Thoracentesis 08/05/17 1535 Signed Impressions: Service Date/Time: Saturday, August 05, 2017 16:08 - CONCLUSION: Uncomplicated CT-guided thoracentesis. Sage Adler MD Chest Ultrasound 08/02/17 0000 Signed Impressions: Service Date/Time: Tuesday, August 01, 2017 22:06 - CONCLUSION: 1. Moderate right pleural effusion, as above. Alejo De La Vega MD Hip and Pelvis X-Ray 07/09/17 0000 Signed Impressions: Service Date/Time: Sunday, July 09, 2017 14:04 - CONCLUSION: Anatomic alignment. Ricardo Middleton MD FACR Liver Ultrasound 06/19/17 0000 Signed Impressions: Service Date/Time: June 13:20 - CONCLUSION: 1. Mildly increased echotexture of the liver characteristic of hepatic steatosis. 2. Gallbladder sludge. Obdulio Sam MD Head CT 05/15/17 0000 Signed Impressions: Service Date/Time: May 19:59 - CONCLUSION: 1. 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 2. No bleed or new/acute infarct. Obdulio Simms MD Gall Bladder Ultrasound 05/08/17 0000 Signed Impressions: Service Date/Time: May 08:23 - CONCLUSION: Focally unremarkable appearance of the gallbladder Obdulio Chun MD Abdomen/Pelvis CT 05/07/17 0000 Signed Impressions: Service Date/Time: Sunday, May 07, 2017 13:23 - CONCLUSION: 1. Large left pneumothorax. 2. Bilateral lower lobe consolidation and bilateral moderate size pleural effusions. 3. Significant soft tissue thickening of the right lateral chest wall and left gluteus muscle. 4. Mild ascites. The findings were called to Dr. Carney. Deangelo Zamora MD Chest CT 04/30/17 0000 Signed Impressions: Service Date/Time: Sunday, April 30, 2017 09:20 - CONCLUSION: 1. Bilateral pulmonary infiltrates more pronounced within the lower lobes with tiny bilateral pleural effusions. Material seen filling the lower lobe bronchi bilaterally either related to purulent material or perhaps mucus plugging. Deangelo Wren Jr., MD Carotid Artery Ultrasound 04/24/17 0000 Signed Impressions: Service Date/Time: April 09:45 - CONCLUSION: 1. No hemodynamically significant carotid artery stenosis. Arnie Middleton MD Hip X-Ray 04/21/17 0000 Signed Impressions: Service Date/Time: Friday, April 21, 2017 11:36 - CONCLUSION: Fluoroscopic images during placement of intramedullary siomara left femur. Benja Ramsey MD Objective Remarks GENERAL: 77 yo female, laying in bed on mechanical ventilation via tracheostomy. SKIN: Warm and dry, adequately perfused. 2 cm x 1 cm deep tissue injury over 1st MTP joint of left foot, 1.0cm x 0.5 DTI Coccyx HEAD: Atraumatic. Normocephalic. mucous membranes moist and pink OP no thrush.. NECK: 8.[address] Trachea midline. No JVD. CARDIOVASCULAR: Bradycardic, RR. S1, S2. No S4. No M/C/G/R RESPIRATORY: Coarse crackles Right posterior on inhalation. Symm. Excur. GASTROINTESTINAL: Abdomen soft, non-tender, nondistended. PEG in place site benign appearing. Dignishield in place. MUSCULOSKELETAL: Extremities without significant peripheral edema. No obvious deformities. NEUROLOGICAL: Eyes open spontaneously, L gaze preference. R side flaccid. Follows commands with LUE. Slight spontaneous movements of LLE. Urinary Catheter: No Assessment to: Continue Vascular Central Line Catheter: No Assessment to: Continue A/P Assessment and Plan Neuro/Psych: Left MCA CVA - 5.5 mm of [id number] subfalcine herniation, diagnosed 04/24. Persistent right-sided hemiparesis. Also prior h/o Stroke Continue Aspirin 325 mg by tube daily. Stroke occurred 04/24/17. Patient was not a candidate for thrombolysis per discussion with neurology and radiology at that time. Repeat head CT 05/15 showed slight improvement in the midline shift now 5.5 mm and mass effect Neurosurgery consulted 04/30- Dr. López, recommended conservative management, now signed off. Neurology Dr. Malave has followed previously, signed off. Acetominophen 650 mg PEG q6h prn fever. Fentanyl 50 mcg IV q1h PRN pain Cardiovascular: Essential Hypertension Chronic systolic and diastolic heart failure Amlodipine 10 mg po daily, Doxazosin 1 mg peg daily, metoprolol 12.5 peg bid, hydralazine 10 mg per per peg q8 hours. clonidine 0.1 mg q6h prn SBP >160 Echo 10/06/17 LVSF is severely reduced with an estimated ejection fraction in the range of 25-30%. Doppler parameters are consistent with impaired left ventricular relaxtion (grade 1 diastolic dysfunction). There is diffuse global hypokinesis with distinct regional wall motion abnormalities. Normal left ventricular size. Wall thickness is normal. Mid anterolateral, apical, and inferoapical akinesis. Pulmonary: Chronic Tracheostomy Recurrent episode Acute hypoxemic respiratory failure 10/03/17. Acute hypoxic respiratory failure - aspiration possible HCAP - previous episode resolved. Large left pneumothorax status post #10 Kazakh chest tube 05/07 - resolved.Chest tube d/c'd 05/12/17 R pleural effusion - Dailu CPAP trials. Ipratropium/albuterol aerosols every 6 hours with albuterol aerosols every 2 hours prn dyspnea Pulm toilet, trach care SBT daily as gato- failing daily. Pulm is following, Dr. Rizo GI/liver: Elevated transaminases, resolved Severe protein calorie malnutrition Small bowel ileus- resolved Hepatitis C antibody positive with negative genotype/viral load Hepatic steatosis Currently on PEG tube feeding with Glucerna 1.5 goal 45 cc an hour per nutrition rec 10/20/17. Free water flushes as per below KUB abdomen 10/10: No dilated bowel loops Beneprotein tid prn constipation. Lansoprazole 30 mg daily for GI regimen Endocrine: Diabetes mellitus SSI Novulin R High-dose every 6 hours, Insulin DETEMIR 8u Q12 /Renal/FEN: Hypernatremia, resolved Monitor renal function. I/O's, electrolytes replacement as needed Free water 200ml Q6 Heme: Chronic Rivaroxaban use prior to admission Leukocytosis Normocytic anemia Follow CBC and coags. ID: Serratia Marcescens VAP E. Faecium UTI MDR Pseudomonas aeruginosa and pneumonia (HCAP) MSSA bacteremia - resolved. Serratia/staph aureus pneumonia - resolved. C glabrata UTI - resolved. Citrobacter UTI - resolved. Serratia/MSSA sputum VAP resolved Current relevant cultures: 09/25/17 -sputum culture - Pseudomonas aeruginosa, multidrug resistant ( including Zerbaxa and Avycaz resistance). s/p Colistin nebs(09/30- 10/21) Per ID sputum cx from 10/18: (Serratia Marcescens) urine from 10/18 - (E. Faecium VRE) Lactobacillus 1 tab bid Prior cultures: Urine culture 04/26/17 sofie glabrata Blood culture 04/29/17 1 out of 4 bottles staph aureus Sputum culture 04/30/17 MSSA and Serratia. urine 05/07-> Serratia, treated. Urine 05/25: Citrobacter MSK: Left Intertroch Hip Fx s/p IMN 04/21/17. Vitamin D deficiency Sacral decubitus ulcer, Previously stage III, healing. Nonstageable pressure wound MTP L foot - Podiatry evaluated 10/23 and recommended against debridement because it would likely leave joint capsule exposed with rapid progression to osteomyelitis. Wound care following. Continue calcium vitamin D 250/125 one tablet 3x a day and cholecalciferol 5000 units daily. PT/OT evaluate and treat Cleanse buttock area with incontinence barrier wipes and apply Calazime barrier cream BID and PRN and leave open to air Apply skin prep to L medial foot DTI Continue to turn patient every 2 hours or PRN for comfort. Please use one UltraSorb for moisture. Please use flat sheet for repositioning on specialty surface. Continue Beneprotein one packet 3x a day prn Prophylaxis: SCDs. Heparin 5000 subcutaneous q8 hours. GI - Lansoprazole 30 mg by PEG tube daily ACCESS: PIV. Level 1 followup Sal Carney MD Oct 26, 2017 06:26
[2017-10-26] MEDS: CHLORHEXIDINE 0.12% (ORAL KIT) 15 ML CUP MT SCH ×2 (07:45→20:00)
[2017-10-26] MEDS: METOPROLOL TARTRATE 25 MG TAB PEG SCH (07:45)
[2017-10-26] MEDS: DOXAZOSIN MESYLATE 1 MG TAB PEG SCH (07:46)
[2017-10-26] MEDS: CALCIUM/VITAMIN D 250 MG/125 U TAB PEG SCH ×3 (08:26→17:18)
[2017-10-26] MEDS: LANSOPRAZOLE SOLUTAB 30 MG TAB NG SCH (08:26)
[2017-10-26] MEDS: ASPIRIN 325 MG TAB DOBHOFF SCH (08:26)
[2017-10-26] MEDS: LACTOBACILLUS ACIDOPHILUS TAB PEG SCH ×2 (08:26→21:49)
[2017-10-26] MEDS: CHOLECALCIFEROL (VIT D3) 5000 UNIT CAP PEG SCH (08:26)
[2017-10-26] MEDS: SODIUM CHLORIDE 0.9% FLUSH 5 ML FLUSH IV FLUSH SCH ×2 (08:27→21:00)
--- NOTE | 2017-10-26 09:46 | HHI.PR ---
Subjective Remarks Patient remains on ventilator via trach. On CPAP with PS 12, PEEP: 5 and FIO2 30 %. Afebrile. Had an episode of bradycardia overnight now HR 60. Objective Vital Signs Vital Signs Date Time Temp Pulse Resp B/P (MAP) Pulse Ox O2 Delivery O2 Flow Rate FiO2 10/26/17 08:52 30 10/26/17 08:52 99 30 10/26/17 08:48 98 30 10/26/17 08:00 98.6 55 16 127/58 (81) 99 10/26/17 08:00 30 10/26/17 08:00 55 10/26/17 04:00 30 10/26/17 04:00 98.5 57 18 131/59 (83) 98 10/26/17 04:00 99 30 10/26/17 00:45 99 30 10/26/17 00:00 30 10/25/17 23:52 97.4 53 16 142/60 (87) 99 10/25/17 21:46 37 10/25/17 21:00 30 10/25/17 20:00 30 10/25/17 20:00 97.3 55 11 135/80 (98) 99 10/25/17 20:00 55 10/25/17 19:18 99 30 10/25/17 16:00 98.2 60 20 136/71 (92) 99 10/25/17 16:00 30 10/25/17 14:47 99 30 10/25/17 12:00 98.3 55 20 108/53 (71) 99 10/25/17 12:00 30 10/25/17 10:45 99 30 I/O 10/25/17 10/25/17 10/25/17 10/26/17 10/26/17 10/26/17 07:00 15:00 23:00 07:00 15:00 23:00 Intake Total 1045 ml 925 ml 945 ml Output Total 1100 ml 900 ml Balance 1045 ml -175 ml 45 ml Tube Feeding 445 ml 525 ml 445 ml Other 600 ml 400 ml 500 ml Output Urine Total 900 ml 800 ml Stool Total 200 ml 100 ml # Voids 4 # Bowel Movements 0 Result Diagram: 10/25/17 0710 10/25/17 0710 Other Results Last Impressions Chest X-Ray 10/15/17 0000 Signed Impressions: Service Date/Time: Sunday, October 15, 2017 11:45 - CONCLUSION: 1. Heart size is borderline with mild interstitial prominence characteristic of some degree of vascular congestion or volume overload. No lanny failure. 2. Atelectatic changes above the left hemidiaphragm with possible small left- sided effusion. Ananda Oneill MD Abdomen X-Ray 10/10/17 0000 Signed Impressions: Service Date/Time: Tuesday, October 10, 2017 11:35 - CONCLUSION: No dilated bowel loops. Benja Ramsey MD Thoracentesis 08/05/17 1535 Signed Impressions: Service Date/Time: Saturday, August 05, 2017 16:08 - CONCLUSION: Uncomplicated CT-guided thoracentesis. Sage Adler MD Chest Ultrasound 08/02/17 0000 Signed Impressions: Service Date/Time: Tuesday, August 01, 2017 22:06 - CONCLUSION: 1. Moderate right pleural effusion, as above. Alejo De La Vega MD Hip and Pelvis X-Ray 07/09/17 0000 Signed Impressions: Service Date/Time: Sunday, July 09, 2017 14:04 - CONCLUSION: Anatomic alignment. Ricardo Middleton MD FACR Liver Ultrasound 06/19/17 0000 Signed Impressions: Service Date/Time: June 13:20 - CONCLUSION: 1. Mildly increased echotexture of the liver characteristic of hepatic steatosis. 2. Gallbladder sludge. Obdulio Sam MD Head CT 05/15/17 0000 Signed Impressions: Service Date/Time: May 19:59 - CONCLUSION: 1. 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 2. No bleed or new/acute infarct. Obdulio Simms MD Gall Bladder Ultrasound 05/08/17 0000 Signed Impressions: Service Date/Time: May 08:23 - CONCLUSION: Focally unremarkable appearance of the gallbladder Obdulio Chun MD Abdomen/Pelvis CT 05/07/17 0000 Signed Impressions: Service Date/Time: Sunday, May 07, 2017 13:23 - CONCLUSION: 1. Large left pneumothorax. 2. Bilateral lower lobe consolidation and bilateral moderate size pleural effusions. 3. Significant soft tissue thickening of the right lateral chest wall and left gluteus muscle. 4. Mild ascites. The findings were called to Dr. Carney. Deangelo Zamora MD Chest CT 04/30/17 0000 Signed Impressions: Service Date/Time: Sunday, April 30, 2017 09:20 - CONCLUSION: 1. Bilateral pulmonary infiltrates more pronounced within the lower lobes with tiny bilateral pleural effusions. Material seen filling the lower lobe bronchi bilaterally either related to purulent material or perhaps mucus plugging. Deangelo Wren Jr., MD Carotid Artery Ultrasound 04/24/17 0000 Signed Impressions: Service Date/Time: April 09:45 - CONCLUSION: 1. No hemodynamically significant carotid artery stenosis. Arnie Middleton MD Hip X-Ray 04/21/17 0000 Signed Impressions: Service Date/Time: Friday, April 21, 2017 11:36 - CONCLUSION: Fluoroscopic images during placement of intramedullary siomara left femur. Benja Ramsey MD Objective Remarks GENERAL: Elderly female,NAD SKIN: Warm and dry. HEAD: Normocephalic. EYES: No scleral icterus. No injection or drainage. NECK: Supple, trachea midline. No JVD or lymphadenopathy. + trach CARDIOVASCULAR: Regular rate and rhythm without murmurs, gallops, or rubs. RESPIRATORY: Breath sounds equal bilaterally. No accessory muscle use. GASTROINTESTINAL: Abdomen soft, non-tender, nondistended. MUSCULOSKELETAL: No cyanosis, or edema. BACK: Nontender without obvious deformity. No CVA tenderness. A/P Assessment and Plan VDRF ,S/P Trach CVA Pneumonia Atelectasis Pseudomonas Tracheobronchitis, PLAN: Continue with vent support keep sat >92% Bronchodilators, ICU vent bundle SBT daily as gato. Pulm toilet, trach care Off abx , monitor for signs of infections ( Fever, WBC) WBC trending down Continue with tube feeds- Glucerna 1.5 with goal rate 45ml/hr GI/DVT prophylaxis Appears stable from pulm stand point. Continue treatment plan Kristel Durant MD Oct 26, 2017 09:46
[2017-10-26] MEDS: INSULIN DETEMIR 100 UNITS/ML VIAL SQ SCH (12:00)
[2017-10-26 13:20] LABS: HEMATOCRIT 22.5 % (35.0-46.0); HEMOGLOBIN 7.7 GM/DL (11.6-15.3); MEAN CELL VOLUME 96.7 FL (80.0-100.0); MEAN CORPUSCULAR HEMOGLOBIN 32.9 PG (27.0-34.0); MEAN PLATELET VOLUME 9.3 FL (7.0-11.0); PLATELET COUNT 306 TH/MM3 (150-450); RED BLOOD COUNT 2.33 MIL/MM3 (4.00-5.30); RED CELL DISTRIBUTION WIDTH 16.7 % (11.6-17.2); WHITE BLOOD COUNT 12.7 TH/MM3 (4.0-11.0)
[2017-10-26 13:43] LABS: BICARBONATE 30.5 MEQ/L (21.0-32.0); CALCIUM 8.4 MG/DL (8.5-10.1); CREATININE 0.46 MG/DL (0.50-1.00); PHOSPHORUS 2.8 MG/DL (2.5-4.9)
--- NOTE | 2017-10-26 21:13 | HHI.PR ---
Addendum to Inpatient Note Addendum Reason: Additional Documentation Additional Information Chart reviewed Doing well off antibiotics from ID standpoint. WBC ok. No fevers. Will sign off please call back if any change in clinical condition or questions. Jane Saleh MD Oct 26, 2017 21:13
[2017-10-27] VITALS (8 sets, daily range): BP systolic 117–145; BP diastolic 62–77; PULSE 79–98; RESP 16–22; TEMP 98.1–99.1; O2SAT 94–100
[2017-10-27] MEDS: RESP: ALBUTEROL 2.5 MG/IPRATROPIUM 0.5 MG NEB (SCH) NEB ×4 (04:38→20:06)
--- NOTE | 2017-10-27 05:41 | RADRPT ---
EXAM DATE/TIME: 10/27/2017 04:26 [facility] COMPARISON: CHEST SINGLE AP, October 15, 2017, 11:45. INDICATIONS : Shortness of breath, possible pulmonary disease. MEDICAL HISTORY : Stroke. Diabetes mellitus type II. SURGICAL HISTORY : Hysterectomy. Tracheostomy ENCOUNTER: Subsequent ACUITY: 2 weeks PAIN SCORE: Non-responsive. LOCATION: Bilateral chest FINDINGS: Stable tracheostomy. Mild diffuse interstitial prominence with bilateral mild airspace disease. Cardi omediastinal contours are stable. Remainder of the exam is unchanged. CONCLUSION: 1. Mild positive fluid balance which appears slightly more prominent likely due to the lower lung vol umes. 2. Mild bibasilar airspace disease, presumably atelectasis. Alejo De La Vega MD on October 27, 2017 at 5:39 Board Certified Radiologist. This report was verified electronically.
[2017-10-27] MEDS: hydrALAZINE HCL 10 MG TAB PEG SCH ×3 (05:48→21:28)
[2017-10-27] MEDS: ARTIFICIAL TEARS OPTH SOLN 15 ML BTL EACH EYE SCH ×3 (05:49→21:28)
[2017-10-27] MEDS: FREE WATER G-TUBE SCH ×2 (05:49)
[2017-10-27] MEDS: HEPARIN SODIUM - SQ 10,000 UNITS/ML VIAL SQ SCH ×3 (05:49→21:27)
[2017-10-27] MEDS: INSULIN NovoLIN REGULAR SUPPLEMENTAL SCALE SQ SCH ×4 (06:00→17:32)
[2017-10-27] MEDS: CHLORHEXIDINE 0.12% (ORAL KIT) 15 ML CUP MT SCH ×2 (08:00→21:29)
[2017-10-27 08:30] LABS: AUTOMATED NEUTROPHIL # 9.4 TH/MM3 (1.8-7.7); BASOPHIL # 0.1 TH/MM3 (0-0.2); BASOPHIL % 0.9 % (0.0-2.0); EOSINOPHIL # 0.2 TH/MM3 (0-0.4); EOSINOPHIL % 1.9 % (0.0-4.0); HEMATOCRIT 25.9 % (35.0-46.0); HEMOGLOBIN 8.9 GM/DL (11.6-15.3); LYMPH % 15.1 % (9.0-44.0); LYMPHOCYTE # 1.9 TH/MM3 (1.0-4.8); MEAN CELL VOLUME 96.9 FL (80.0-100.0); MEAN CORPUSCULAR HEMOGLOBIN 33.1 PG (27.0-34.0); MEAN CORPUSCULAR HGB CONC 34.2 % (32.0-36.0); MEAN PLATELET VOLUME 8.8 FL (7.0-11.0); MONO % 8.2 % (0.0-8.0); NEUT % 73.9 % (16.0-70.0); PLATELET COUNT 330 TH/MM3 (150-450); RED BLOOD COUNT 2.67 MIL/MM3 (4.00-5.30); RED CELL DISTRIBUTION WIDTH 16.4 % (11.6-17.2); WHITE BLOOD COUNT 12.7 TH/MM3 (4.0-11.0)
[2017-10-27] MEDS: CHOLECALCIFEROL (VIT D3) 5000 UNIT CAP PEG SCH (08:40)
[2017-10-27] MEDS: LANSOPRAZOLE SOLUTAB 30 MG TAB NG SCH (08:40)
[2017-10-27] MEDS: CALCIUM/VITAMIN D 250 MG/125 U TAB PEG SCH ×3 (08:40→17:31)
[2017-10-27] MEDS: DOXAZOSIN MESYLATE 1 MG TAB PEG SCH (08:40)
[2017-10-27] MEDS: ASPIRIN 325 MG TAB DOBHOFF SCH (08:40)
[2017-10-27] MEDS: LACTOBACILLUS ACIDOPHILUS TAB PEG SCH ×2 (08:40→21:27)
[2017-10-27] MEDS: SODIUM CHLORIDE 0.9% FLUSH 5 ML FLUSH IV FLUSH SCH ×2 (09:00→21:00)
[2017-10-27 09:09] LABS: BICARBONATE 28.8 MEQ/L (21.0-32.0); CALCIUM 9.2 MG/DL (8.5-10.1); CREATININE 0.54 MG/DL (0.50-1.00)
[2017-10-27 09:37] LABS: BANDS 5 % (0-6); LYMPHOCYTES 17 % (9-44); MONOCYTES 8 % (0-8); MYELOCYTES 2 % (0-0); NEUTROPHIL # MANUAL DIFF 9.5 TH/MM3 (1.8-7.7); POLYS (SEG NEUTROPHILS) 68 % (16-70)
[2017-10-27 09:38] LABS: TOXIC GRANULATION 1+ (NORMAL)
--- NOTE | 2017-10-27 10:07 | HHI.CCPN ---
Subjective Remarks/Hospital Course 04/24: 76-year-old female with a medical history significant for prior stroke, diabetes mellitus who was admitted with DKA and a hip fracture for which she underwent ORIF on 04/21. Patient developed altered mental status and was last noted to be okay around 5:30 AM. Subsequently there was a change in her mental status and she was noted to not be moving her right side for which stroke alert was called. Head CT showed large left MCA territory ischemic infarct with edema. Patient was transferred to the ICU by family medicine service in the critical care consult was requested. I evaluated the patient following arrival to the ICU. At that time she was laying in bed with her eyes open however not following commands and had a dense right hemiplegia. Patient was also evaluated by Dr. Malave from neurology. [facility] further discussed current event with patient's daughter following her arrival to the ICU. Per the daughter patient has been living with her since her stroke in 2014 and does ambulate however has been having problems with memory and incontinence as well as gait difficulties. She does not feel patient would want intubation or tracheostomy or PEG tube. 04/25: Patient remains encephalopathic, awake though not following commands consistently. Dense right hemiplegia persists. Appears to be awake enough to protect airway currently. Patient's daughter rescinded DNR and made a full code last evening. 04/26: Remains encephalopathic, not following commands. On Dobbhoff for tube feeds at 30 cc per hour. Had urinary retention and drained 2 L of urine after placing Moser catheter today. CT head done this morning with large left MCA territory infarct with left to right midline shift and significant cerebral edema. Hyperglycemia noted. Patient given mannitol earlier for increasing cerebral edema. 04/27: Remains encephalopathic, not following commands. On Dobbhoff tube feeds at 30 cc per hour. When into A. fib with RVR last night which responded with Lopressor 5 mg IV 1 dose. 04/28: Remains encephalopathic, arousable, not following commands. Moves left upper extremity spontaneously. Tolerating Dobbhoff tube feeds. Remains on nasal cannula. 04/29: Encephalopathic, eyes be arousable, moves left upper extremity spontaneously and occasionally opens eyes. Dense right hemiplegia and aphasia persists. On nasal cannula. Dobbhoff tube feeds being advanced. Patient was transfused 1 unit PRBCs yesterday. Urine culture with yeast from yesterday for which fluconazole being started. Had brief run of A. fib with RVR which improved with Lopressor IV, currently in sinus rhythm. 04/30: Worsening hypoxemic respiratory failure, currently on partial nonrebreather. Remains lethargic. WBC count increased from 14.6 today 20.7. Chest x-ray shows bilateral worsening infiltrates and small pleural effusions. Sodium 154, weight up by 8 KG. Albumin 1 mg Bumex 1. Also one dose of albumin. Remains in sinus tachycardia. Tmax 101.3 05/01: Patient was intubated yesterday for lack of airway protection, and severe hypoxemic respiratory failure from aspiration pneumonia involving multiple lobes. Patient is on the vent lethargic, no spontaneous eye opening. Chest x- ray remains unchanged. Remains intermittently febrile Tmax 101.3. WBC count improving 05/02: Remains critically ill with no improvement in mental status. Spiking fever of 101.7. Blood culture and sputum culture with staph aureus sputum also growing GNR, WBC count 22,000 now indicating worsening sepsis. Daughter still requesting aggressive care. Palliative care is following 05/03: S/P large area dominant hemisphere CVA. No neurological improvement. Now with pneumonia (infiltrate, fever, leukocytosis) and appropriate abx coverage. She will have a hard time surviving the hip fx, CVA, and pneumonia. Palliative Care needs to be a mainstay of our plan. 05/04: No improvement in neuro status. Sputum C&S allows us to narrow abx coverage to levaquin alone. Lungs remain quite congested. Enteral nutrition tolerated. 05/05: No improvement in neuro status. Moves left arm spontaneously. Flaccid right side. Unresponsive. Persistent mild hypoglycemia - will cut Levemir 50%. Abdomen more distended, check KUB. 05/06: CT head with massive left MCA infarction and > 1 cm shift in right handed woman. She opens eyes, does not track. 05/07: Patient open eyes. Attempts to respond. Spanish speaking. Tolerating tube feeds. Positive bowel movement. Volume overloaded. 05/08: Tmax 99.4. Potassium being replaced. Ultrasound gallbladder currently pending. Transaminases are trending downward. Gently diurese. 05/09: Alk phos decreasing. Remains with good urine output. Neurological status not improving. 05/10: Fixed neuro deficit unchanged. Profound CVA. 05/11: Appears to track with eyes today. No improvement in motor function. Remains very edematous, diuretics doubled. 05/12: Continued thick secretions. Afebrile, leukocytosis resolved. 05/13: CT head with completed left MCA stroke, persistent edema and 5 mm shift away. Does not last long on SBTs - major decision now is trach/PEG. 05/14: Daughter has decided to proceed with trach and PEG. I have been pessimistic with her about chances for a meaningful recovery. 05/15: Plan for trach today. No change in neuro status. Still ventilator dependent. 05/16: Trach completed. Await PEG and disposition. 05/17: PEG placed 05/16. Start TFs today after nutrition consult. Work to place patient. 05/18: No improvement. Does open eyes, no focus or tracking. Completed large dominant (left) hemisphere CVA in right handed woman with severe deficit. Medicaid pending status, [facility] is following. 05/19: no improvements in neuro exam. ready for LTAC. will d/c moser and rectal tubes. 05/20: no changes or improvements. very difficult placement due to patient not [place] citizen. 05/21: no improvements. resting on vent overnight due to distress. 05/22: no neurologic changes. no improvements. attempted T-piece which failed after 10 minutes. 05/23: no improvements. poor prognosis. poor neuro exam. still failing weaning trials. 05/24: no improvements or changes. still failing t-piece trials. 05/25: No acute changes of improvement overnight. Failed CPAP due to apnea, tried again currently tolerating. Neurological exam unchanged. 05/26: No improvement in neurological function. 05/27: Patient has required Omser catheter because of breakdown of skin on upper thighs and groin. Urine has become infected, will treat. 05/28: Some drainage from around trach (placed 2 weeks ago). Will change out trach tube and inspect neck wound. I&O straight cath q6h order entered 05/17. 05/29: No improvement, remains obtunded. Failed CPAP trials yesterday and again today due to apnea. Moser placed due to persistent urinary retention 05/30: Obtunded, unresponsive. Failed SBTs, remains ventilator dependent. 05/31: Patient continues to fail SBT failed yesterday due to apnea. Neuro exam remains unchanged. 06/01: No acute changes overnight, 06/02: no changes. ekg done overnight for ? EKG changes seen on telemetry which were not visualized on EKG. 06/03: no improvements or changes. had long conversation with daughter yesterday. only facility which would accept patient is in [place] and daughter is refusing to allow patient to go there because it is "too far away." Daughter continues to push for aggressive care despite no improvements, and resistant to Hospice. Patient does not need acute inpatient therapy but lacks funding for appropriate disposition. 06/04: No acute events overnight, failed SBT due to apnea. 06/05: No acute events, continues to fail spontaneous breathing trials. Unable to wean 06/06 Currently tolerating CPAP. Will attempt TP today up to 4 hours. No acute events overnight 06/07: Tolerating trach collar/T-piece. Transfer soon. 06/08: Awaiting transfer. 06/09: Remains ventilator dependent. No improvement in neurological function. 06/10: No improvement. Daughter is not attending preplanned meetings to discuss disposition 06/12: Afebrile. Neurologically stable and unchanged. Noted sodium 135. Adding sodium chloride tablets 1 today. Not on free water.. Tolerating tube feeds at goal 45 cc an hour. 06/13: No improvement in neurological function. 06/14: No improvement. Fluid balance correct. Gas exchange acceptable. 06/15: No improvement. Obtunded and unresponsive. 06/16: no improvements in mental status. KUB overnight with dilated small bowel loops. given methylnaltrexone and erythromycin. today abdomen is soft and tolerating tube feeds. 06/17: tolerated t-piece x 6 hours yesterday. rested on cpap overnight. no changes in encephalopathy. 06/18: Currently on ventilator overnight. Multiple bowel movements. Thick yellow secretions noted in ventilator circuit. Opens eyes. 06/19: Afebrile. Tolerating stretcher chair yesterday on PSV. Tolerating tube feeding. Neurologically unchanged. 06/20: Afebrile. Resting in bed in no acute distress in sitting position. Currently on ventilator set sitting. Tolerated stretcher chair/PSV trial 6 hours yesterday. Neurologically unchanged. 06/21: Tmax 100.8. Patient with copious thick yellow secretions. Tolerating tube feeds. Positive bowel movement. Lasted only 1 hour PSV yesterday 06/22: Tmax 99.9. Continues to have thick secretions. Tolerating tube feeding. Positive BM. 06/23: Afebrile. Continues to have thick tracheal secretions from tracheostomy site. Tolerating tube feeding. 3 bowels movements. Opens eyes to stimulation. Stares at you but does not follow commands. 06/24: Remains encephalopathic, on mechanical ventilation via tracheostomy. Tolerating PEG feeds 06/25: Remains encephalopathic on mechanical ventilation. Tolerated C Pap +5 with pressure support +10 all day yesterday. Tolerating PEG feeds. 06/26: No improvement.Vent dependent still. 06/27: Remains encephalopathic, on mech vent via trach. Daily CPAP trials. 06/28: Unable to wean from ventilator. 06/29: Neurologically unchanged. Remains on mechanical ventilation. Daily C Pap trials ongoing. 06/30: Remains encephalopathic. On C Pap overnight. Tolerating tube feeds. 07/01: No change in neurologic status. On mechanical ventilation via tracheostomy. Tolerating tube feeds. 07/02: Remains encephalopathic. No change in neurologic status. On mechanical ventilation via tracheostomy. Daily C Pap trials ongoing. 07/03: Occasional spontaneous eye opening however remains encephalopathic. On mechanical ventilation via tracheostomy. 07/04: Tmax 99.2. Multiple bowel movements overnight. Tolerating tube feeds. On T piece trial at 5 L since noon yesterday. Otherwise neurologically unchanged. Daughter encouraged by movement of left leg. 07/05: Currently resting in bed on T piece 36 hours. Tolerates chair. No changes neurologically. Positive BM's. Tolerating her tube feeding. 07/06: Continue T-piece trials, if tolerated consider transfer to floor. 07/07: Extended T-piece trial. Plan transfer to floor. 07/09: Patient is experiencing apnea episodes and had to be placed back on higher FiO2.. Hold transfer. 07/10: X-ray left hip shows good anatomic alignment. Still requiring elevated FiO2. 07/11: Prealbumin 20, nutritional support is adequate and status is stable. No neurological improvement. 07/12: No improvement in neurological function. Continued acceptable respiratory effort. 07/13: No change. 10/03/17 Dr. Rizo notified [employer] de[employer] that patient would be transferring to ICU. Patient is known to [facility] service. She was originally admitted 04/20/17 after a fall with hip fracture resulting in ORIF 04/21. Postoperatively, she developed large R MCA stroke with midline shift. Her neurologic condition remained poor and she underwent trach 05/15/17 and PEG 05/16/17. She was eventually transitioned to Tpiece and transferred to floor. She has suffered from multiple infectious complications due to her persistent bedfast and trach dependent state. 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 She has been on trach collar with worsening hypoxemia therefore she is transferred to [facility]. CXR from yesterday demonstrates bilateral pulmonary infiltrates. She has also had hyperkalemia today up to 6.7 which has been treated with kayexalate, down to 6. 2: improvement in air space disease with diuresis and bronch yesterday. no overall improvements in chronic poor prognosis. unlikely to survive this hospital stay. daughter has poor insight into the gravity of her mother's medical condition. she will not recover meaningfully. 10/05: continuing to clinically improve from a respiratory standpoint. no improvements in overall poor function. off vent on t-piece today. can likely transition out of ICU tomorrow. 10/06 No events overnight. Remains on ventilator via trach. Afebrile. 10/07 No events overnight. Afebrile. 10/08 Patient is on ventilator via trach. afebrile. 10/09 No events overnight. Tolerating tube feeds. Afebrile. 10/10 Patient is on ventilators via trach. 10/11: Nursing reported patient intermittently follow commands today. BUN slightly elevated. Patient tolerating tube feeding 10/12: The patient tolerated CPAP for approximately 6 hours yesterday. No acute changes overnight. No neurological change in status. 10/13 No events overnight. Afebrile. 10/14 Patient remains on ventilator via trach. Afebrile. Didn't tolerate CPAP trials earlier today. 10/15: no changes. patient remains on the ventilator. unable to wean. 10/16: no improvements. no changes. PSV trials ongoing, not ready for SBT. 10/17 No events overnight. On CPAP. 10/18 Patient remains on ventilator via trach tolerating CPAP trials. 10/19 No events overnight. afebrile. WBC is trending down. 10/20 Patient is on CPAP with PS 15, PEEP:5 Awake, afebrile. 10/21, 10/22, 10/23: Remains on mechanical ventilation via tracheostomy. 10/24 No events overnight. On CPAP with PS 12, PEEP:5 and FIO2 30%,. 10/25 Labs pending. Afebrile. Subjective 10/26: Afebrile. Bradycardic. No new issues past 24 hours. Appears comfortable on Vent. 10/27 No events overnight. Afebrile. On TP's with 50% FIO2. Objective Vital Signs Date Time Temp Pulse Resp B/P (MAP) Pulse Ox O2 Delivery O2 Flow Rate FiO2 10/27/17 08:00 50 10/27/17 08:00 99.1 91 20 139/73 (95) 95 10/27/17 07:51 T-piece 5.00 Intake and Output 10/27/17 10/27/17 10/28/17 08:00 16:00 00:00 Intake Total 911 ml Output Total 300 ml Balance 611 ml Result Diagram: 10/27/17 0811 10/27/17 0811 Other Results Laboratory Tests Test 10/26/17 12:40 10/27/17 08:11 White Blood Count 12.7 TH/MM3 12.7 TH/MM3 Red Blood Count 2.33 MIL/MM3 2.67 MIL/MM3 Hemoglobin 7.7 GM/DL 8.9 GM/DL Hematocrit 22.5 % 25.9 % Mean Corpuscular Volume 96.7 FL 96.9 FL Mean Corpuscular Hemoglobin 32.9 PG 33.1 PG Mean Corpuscular Hemoglobin Concent 34.0 % 34.2 % Red Cell Distribution Width 16.7 % 16.4 % Platelet Count 306 TH/MM3 330 TH/MM3 Mean Platelet Volume 9.3 FL 8.8 FL Blood Urea Nitrogen 32 MG/DL 30 MG/DL Creatinine 0.46 MG/DL 0.54 MG/DL Random Glucose 177 MG/DL 176 MG/DL Calcium Level 8.4 MG/DL 9.2 MG/DL Phosphorus Level 2.8 MG/DL Magnesium Level 2.0 MG/DL Sodium Level 137 MEQ/L 136 MEQ/L Potassium Level 4.6 MEQ/L 4.7 MEQ/L Chloride Level 102 MEQ/L 102 MEQ/L Carbon Dioxide Level 30.5 MEQ/L 28.8 MEQ/L Anion Gap 5 MEQ/L 5 MEQ/L Estimat Glomerular Filtration Rate 132 ML/MIN 110 ML/MIN Neutrophils (%) (Auto) 73.9 % Lymphocytes (%) (Auto) 15.1 % Monocytes (%) (Auto) 8.2 % Eosinophils (%) (Auto) 1.9 % Basophils (%) (Auto) 0.9 % Neutrophils # (Auto) 9.4 TH/MM3 Lymphocytes # (Auto) 1.9 TH/MM3 Monocytes # (Auto) 1.0 TH/MM3 Eosinophils # (Auto) 0.2 TH/MM3 Basophils # (Auto) 0.1 TH/MM3 CBC Comment AUTO DIFF Differential Total Cells Counted 100 Neutrophils % (Manual) 68 % Band Neutrophils % 5 % Lymphocytes % 17 % Monocytes % 8 % Neutrophils # (Manual) 9.5 TH/MM3 Myelocytes 2 % Differential Comment FINAL DIFF MANUAL Toxic Granulation 1+ Platelet Estimate NORMAL Platelet Morphology Comment NORMAL Imaging Last Impressions Chest X-Ray 10/15/17 0000 Signed Impressions: Service Date/Time: Sunday, October 15, 2017 11:45 - CONCLUSION: 1. Heart size is borderline with mild interstitial prominence characteristic of some degree of vascular congestion or volume overload. No lanny failure. 2. Atelectatic changes above the left hemidiaphragm with possible small left- sided effusion. Ananda Oneill MD Abdomen X-Ray 10/10/17 0000 Signed Impressions: Service Date/Time: Tuesday, October 10, 2017 11:35 - CONCLUSION: No dilated bowel loops. Benja Ramsey MD Thoracentesis 08/05/17 1535 Signed Impressions: Service Date/Time: Saturday, August 05, 2017 16:08 - CONCLUSION: Uncomplicated CT-guided thoracentesis. Sage Adler MD Chest Ultrasound 08/02/17 0000 Signed Impressions: Service Date/Time: Tuesday, August 01, 2017 22:06 - CONCLUSION: 1. Moderate right pleural effusion, as above. Alejo De La Vega MD Hip and Pelvis X-Ray 07/09/17 0000 Signed Impressions: Service Date/Time: Sunday, July 09, 2017 14:04 - CONCLUSION: Anatomic alignment. Ricardo Middleton MD FACR Liver Ultrasound 06/19/17 0000 Signed Impressions: Service Date/Time: June 13:20 - CONCLUSION: 1. Mildly increased echotexture of the liver characteristic of hepatic steatosis. 2. Gallbladder sludge. Obdulio Sam MD Head CT 05/15/17 0000 Signed Impressions: Service Date/Time: May 19:59 - CONCLUSION: 1. 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 2. No bleed or new/acute infarct. Obdulio Simms MD Gall Bladder Ultrasound 05/08/17 0000 Signed Impressions: Service Date/Time: May 08:23 - CONCLUSION: Focally unremarkable appearance of the gallbladder Obdulio Chun MD Abdomen/Pelvis CT 05/07/17 0000 Signed Impressions: Service Date/Time: Sunday, May 07, 2017 13:23 - CONCLUSION: 1. Large left pneumothorax. 2. Bilateral lower lobe consolidation and bilateral moderate size pleural effusions. 3. Significant soft tissue thickening of the right lateral chest wall and left gluteus muscle. 4. Mild ascites. The findings were called to Dr. Carney. Deangelo Zamora MD Chest CT 04/30/17 0000 Signed Impressions: Service Date/Time: Sunday, April 30, 2017 09:20 - CONCLUSION: 1. Bilateral pulmonary infiltrates more pronounced within the lower lobes with tiny bilateral pleural effusions. Material seen filling the lower lobe bronchi bilaterally either related to purulent material or perhaps mucus plugging. Deangelo Wren Jr., MD Carotid Artery Ultrasound 04/24/17 0000 Signed Impressions: Service Date/Time: April 09:45 - CONCLUSION: 1. No hemodynamically significant carotid artery stenosis. Arnie Middleton MD Hip X-Ray 04/21/17 0000 Signed Impressions: Service Date/Time: Friday, April 21, 2017 11:36 - CONCLUSION: Fluoroscopic images during placement of intramedullary siomara left femur. Benja Ramsey MD Objective Remarks GENERAL: 77 yo female, laying in bed on mechanical ventilation via tracheostomy. SKIN: Warm and dry, adequately perfused. 2 cm x 1 cm deep tissue injury over 1st MTP joint of left foot, 1.0cm x 0.5 DTI Coccyx HEAD: Atraumatic. Normocephalic. mucous membranes moist and pink OP no thrush.. NECK: 8.[address] Trachea midline. No JVD. CARDIOVASCULAR: Bradycardic, RR. S1, S2. No S4. No M/C/G/R RESPIRATORY: Coarse crackles Right posterior on inhalation. Symm. Excur. GASTROINTESTINAL: Abdomen soft, non-tender, nondistended. PEG in place site benign appearing. Dignishield in place. MUSCULOSKELETAL: Extremities without significant peripheral edema. No obvious deformities. NEUROLOGICAL: Eyes open spontaneously, L gaze preference. R side flaccid. Follows commands with LUE. Slight spontaneous movements of LLE. A/P Assessment and Plan Neuro/Psych: Left MCA CVA - 5.5 mm of [id number] subfalcine herniation, diagnosed 04/24. Persistent right-sided hemiparesis. Also prior h/o Stroke Continue Aspirin 325 mg by tube daily. Stroke occurred 04/24/17. Patient was not a candidate for thrombolysis per discussion with neurology and radiology at that time. Repeat head CT 05/15 showed slight improvement in the midline shift now 5.5 mm and mass effect Neurosurgery consulted 04/30- Dr. López, recommended conservative management, now signed off. Neurology Dr. Malave has followed previously, signed off. Acetominophen 650 mg PEG q6h prn fever. Fentanyl 50 mcg IV q1h PRN pain Cardiovascular: Essential Hypertension Chronic systolic and diastolic heart failure Amlodipine 10 mg po daily, Doxazosin 1 mg peg daily, hydralazine 10 mg per per peg q8 hours. clonidine 0.1 mg q6h prn SBP >160 Echo 10/06/17 LVSF is severely reduced with an estimated ejection fraction in the range of 25-30%. Doppler parameters are consistent with impaired left ventricular relaxtion (grade 1 diastolic dysfunction). There is diffuse global hypokinesis with distinct regional wall motion abnormalities. Normal left ventricular size. Wall thickness is normal. Mid anterolateral, apical, and inferoapical akinesis. Pulmonary: Chronic Tracheostomy Recurrent episode Acute hypoxemic respiratory failure 10/03/17. Acute hypoxic respiratory failure - aspiration possible HCAP - previous episode resolved. Large left pneumothorax status post #10 Brazilian chest tube 05/07 - resolved.Chest tube d/c'd 05/12/17 R pleural effusion - Daily CPAP/TP's trials as gato. Ipratropium/albuterol aerosols every 6 hours with albuterol aerosols every 2 hours prn dyspnea Pulm toilet, trach care SBT daily as gato- failing daily. Pulm is following, Dr. Rizo GI/liver: Elevated transaminases, resolved Severe protein calorie malnutrition Small bowel ileus- resolved Hepatitis C antibody positive with negative genotype/viral load Hepatic steatosis Currently on PEG tube feeding with Glucerna 1.5 goal 45 cc an hour per nutrition rec 10/20/17. KUB abdomen 10/10: No dilated bowel loops Beneprotein tid prn constipation. Lansoprazole 30 mg daily for GI regimen Endocrine: Diabetes mellitus SSI Novulin R High-dose every 6 hours, Insulin DETEMIR 8u Q12 /Renal/FEN: Hypernatremia, resolved Monitor renal function. I/O's, electrolytes replacement as needed d/c free water Heme: Chronic Rivaroxaban use prior to admission Leukocytosis Normocytic anemia Follow CBC and coags. ID: Serratia Marcescens VAP E. Faecium UTI MDR Pseudomonas aeruginosa and pneumonia (HCAP) MSSA bacteremia - resolved. Serratia/staph aureus pneumonia - resolved. C glabrata UTI - resolved. Citrobacter UTI - resolved. Serratia/MSSA sputum VAP resolved Current relevant cultures: 09/25/17 -sputum culture - Pseudomonas aeruginosa, multidrug resistant ( including Zerbaxa and Avycaz resistance). s/p Colistin nebs(09/30- 10/21) Per ID sputum cx from 10/18: (Serratia Marcescens) urine from 10/18 - (E. Faecium VRE) Lactobacillus 1 tab bid Prior cultures: Urine culture 04/26/17 sofie glabrata Blood culture 04/29/17 1 out of 4 bottles staph aureus Sputum culture 04/30/17 MSSA and Serratia. urine 05/07-> Serratia, treated. Urine 05/25: Citrobacter MSK: Left Intertroch Hip Fx s/p IMN 04/21/17. Vitamin D deficiency Sacral decubitus ulcer, Previously stage III, healing. Nonstageable pressure wound MTP L foot - Podiatry evaluated 10/23 and recommended against debridement because it would likely leave joint capsule exposed with rapid progression to osteomyelitis. Wound care following. Continue calcium vitamin D 250/125 one tablet 3x a day and cholecalciferol 5000 units daily. PT/OT evaluate and treat Cleanse buttock area with incontinence barrier wipes and apply Calazime barrier cream BID and PRN and leave open to air Apply skin prep to L medial foot DTI Continue to turn patient every 2 hours or PRN for comfort. Please use one UltraSorb for moisture. Please use flat sheet for repositioning on specialty surface. Continue Beneprotein one packet 3x a day prn Prophylaxis: SCDs. Heparin 5000 subcutaneous q8 hours. GI - Lansoprazole 30 mg by PEG tube daily ACCESS: PIV. Level 1 followup Kristel Durant MD Oct 27, 2017 10:07
[2017-10-27] MEDS: INSULIN DETEMIR 100 UNITS/ML VIAL SQ SCH ×2 (11:29)
[2017-10-28] VITALS (9 sets, daily range): BP systolic 120–152; BP diastolic 64–70; PULSE 74–94; RESP 20–22; TEMP 98–99.3; O2SAT 96–100
[2017-10-28] MEDS: INSULIN DETEMIR 100 UNITS/ML VIAL SQ SCH ×2 (00:26→12:00)
[2017-10-28] MEDS: INSULIN NovoLIN REGULAR SUPPLEMENTAL SCALE SQ SCH ×5 (00:27→17:42)
[2017-10-28] MEDS: RESP: ALBUTEROL 2.5 MG/IPRATROPIUM 0.5 MG NEB (SCH) NEB ×4 (04:05→20:54)
[2017-10-28] MEDS: HEPARIN SODIUM - SQ 10,000 UNITS/ML VIAL SQ SCH ×3 (05:00→21:21)
[2017-10-28] MEDS: hydrALAZINE HCL 10 MG TAB PEG SCH ×3 (05:00→21:21)
[2017-10-28] MEDS: ARTIFICIAL TEARS OPTH SOLN 15 ML BTL EACH EYE SCH ×3 (05:01→21:21)
[2017-10-28] MEDS: CHLORHEXIDINE 0.12% (ORAL KIT) 15 ML CUP MT SCH ×2 (08:00→21:21)
[2017-10-28 08:01] LABS: BICARBONATE 28.2 MEQ/L (21.0-32.0); CALCIUM 9.1 MG/DL (8.5-10.1); CREATININE 0.48 MG/DL (0.50-1.00)
[2017-10-28 08:08] LABS: AUTOMATED NEUTROPHIL # 7.7 TH/MM3 (1.8-7.7); BASOPHIL # 0.1 TH/MM3 (0-0.2); BASOPHIL % 1.2 % (0.0-2.0); EOSINOPHIL # 0.5 TH/MM3 (0-0.4); EOSINOPHIL % 4.5 % (0.0-4.0); HEMATOCRIT 24.2 % (35.0-46.0); HEMOGLOBIN 8.3 GM/DL (11.6-15.3); LYMPH % 17.7 % (9.0-44.0); MEAN CORPUSCULAR HEMOGLOBIN 33.4 PG (27.0-34.0); MEAN CORPUSCULAR HGB CONC 34.4 % (32.0-36.0); MEAN PLATELET VOLUME 8.9 FL (7.0-11.0); MONO % 8.1 % (0.0-8.0); MONOCYTE # 0.9 TH/MM3 (0-0.9); NEUT % 68.5 % (16.0-70.0); PLATELET COUNT 323 TH/MM3 (150-450); RED BLOOD COUNT 2.49 MIL/MM3 (4.00-5.30); WHITE BLOOD COUNT 11.2 TH/MM3 (4.0-11.0)
[2017-10-28] MEDS: LACTOBACILLUS ACIDOPHILUS TAB PEG SCH ×2 (08:33→21:21)
[2017-10-28] MEDS: CHOLECALCIFEROL (VIT D3) 5000 UNIT CAP PEG SCH (08:33)
[2017-10-28] MEDS: ASPIRIN 325 MG TAB DOBHOFF SCH (08:33)
[2017-10-28] MEDS: CALCIUM/VITAMIN D 250 MG/125 U TAB PEG SCH ×3 (08:33→17:41)
[2017-10-28] MEDS: LANSOPRAZOLE SOLUTAB 30 MG TAB NG SCH (08:33)
[2017-10-28] MEDS: DOXAZOSIN MESYLATE 1 MG TAB PEG SCH (08:33)
[2017-10-28] MEDS: SODIUM CHLORIDE 0.9% FLUSH 5 ML FLUSH IV FLUSH SCH ×2 (08:34→21:00)
[2017-10-28 09:15] LABS: BANDS 6 % (0-6); LYMPHOCYTES 20 % (9-44); MONOCYTES 5 % (0-8); MYELOCYTES 2 % (0-0); NEUTROPHIL # MANUAL DIFF 7.5 TH/MM3 (1.8-7.7); POLYS (SEG NEUTROPHILS) 59 % (16-70)
--- NOTE | 2017-10-28 10:40 | HHI.CCPN ---
Subjective Remarks/Hospital Course 04/24: 76-year-old female with a medical history significant for prior stroke, diabetes mellitus who was admitted with DKA and a hip fracture for which she underwent ORIF on 04/21. Patient developed altered mental status and was last noted to be okay around 5:30 AM. Subsequently there was a change in her mental status and she was noted to not be moving her right side for which stroke alert was called. Head CT showed large left MCA territory ischemic infarct with edema. Patient was transferred to the ICU by family medicine service in the critical care consult was requested. I evaluated the patient following arrival to the ICU. At that time she was laying in bed with her eyes open however not following commands and had a dense right hemiplegia. Patient was also evaluated by Dr. Malave from neurology. [facility] further discussed current event with patient's daughter following her arrival to the ICU. Per the daughter patient has been living with her since her stroke in 2014 and does ambulate however has been having problems with memory and incontinence as well as gait difficulties. She does not feel patient would want intubation or tracheostomy or PEG tube. 04/25: Patient remains encephalopathic, awake though not following commands consistently. Dense right hemiplegia persists. Appears to be awake enough to protect airway currently. Patient's daughter rescinded DNR and made a full code last evening. 04/26: Remains encephalopathic, not following commands. On Dobbhoff for tube feeds at 30 cc per hour. Had urinary retention and drained 2 L of urine after placing Moser catheter today. CT head done this morning with large left MCA territory infarct with left to right midline shift and significant cerebral edema. Hyperglycemia noted. Patient given mannitol earlier for increasing cerebral edema. 04/27: Remains encephalopathic, not following commands. On Dobbhoff tube feeds at 30 cc per hour. When into A. fib with RVR last night which responded with Lopressor 5 mg IV 1 dose. 04/28: Remains encephalopathic, arousable, not following commands. Moves left upper extremity spontaneously. Tolerating Dobbhoff tube feeds. Remains on nasal cannula. 04/29: Encephalopathic, eyes be arousable, moves left upper extremity spontaneously and occasionally opens eyes. Dense right hemiplegia and aphasia persists. On nasal cannula. Dobbhoff tube feeds being advanced. Patient was transfused 1 unit PRBCs yesterday. Urine culture with yeast from yesterday for which fluconazole being started. Had brief run of A. fib with RVR which improved with Lopressor IV, currently in sinus rhythm. 04/30: Worsening hypoxemic respiratory failure, currently on partial nonrebreather. Remains lethargic. WBC count increased from 14.6 today 20.7. Chest x-ray shows bilateral worsening infiltrates and small pleural effusions. Sodium 154, weight up by 8 KG. Albumin 1 mg Bumex 1. Also one dose of albumin. Remains in sinus tachycardia. Tmax 101.3 05/01: Patient was intubated yesterday for lack of airway protection, and severe hypoxemic respiratory failure from aspiration pneumonia involving multiple lobes. Patient is on the vent lethargic, no spontaneous eye opening. Chest x- ray remains unchanged. Remains intermittently febrile Tmax 101.3. WBC count improving 05/02: Remains critically ill with no improvement in mental status. Spiking fever of 101.7. Blood culture and sputum culture with staph aureus sputum also growing GNR, WBC count 22,000 now indicating worsening sepsis. Daughter still requesting aggressive care. Palliative care is following 05/03: S/P large area dominant hemisphere CVA. No neurological improvement. Now with pneumonia (infiltrate, fever, leukocytosis) and appropriate abx coverage. She will have a hard time surviving the hip fx, CVA, and pneumonia. Palliative Care needs to be a mainstay of our plan. 05/04: No improvement in neuro status. Sputum C&S allows us to narrow abx coverage to levaquin alone. Lungs remain quite congested. Enteral nutrition tolerated. 05/05: No improvement in neuro status. Moves left arm spontaneously. Flaccid right side. Unresponsive. Persistent mild hypoglycemia - will cut Levemir 50%. Abdomen more distended, check KUB. 05/06: CT head with massive left MCA infarction and > 1 cm shift in right handed woman. She opens eyes, does not track. 05/07: Patient open eyes. Attempts to respond. Romanian speaking. Tolerating tube feeds. Positive bowel movement. Volume overloaded. 05/08: Tmax 99.4. Potassium being replaced. Ultrasound gallbladder currently pending. Transaminases are trending downward. Gently diurese. 05/09: Alk phos decreasing. Remains with good urine output. Neurological status not improving. 05/10: Fixed neuro deficit unchanged. Profound CVA. 05/11: Appears to track with eyes today. No improvement in motor function. Remains very edematous, diuretics doubled. 05/12: Continued thick secretions. Afebrile, leukocytosis resolved. 05/13: CT head with completed left MCA stroke, persistent edema and 5 mm shift away. Does not last long on SBTs - major decision now is trach/PEG. 05/14: Daughter has decided to proceed with trach and PEG. I have been pessimistic with her about chances for a meaningful recovery. 05/15: Plan for trach today. No change in neuro status. Still ventilator dependent. 05/16: Trach completed. Await PEG and disposition. 05/17: PEG placed 05/16. Start TFs today after nutrition consult. Work to place patient. 05/18: No improvement. Does open eyes, no focus or tracking. Completed large dominant (left) hemisphere CVA in right handed woman with severe deficit. Medicaid pending status, [facility] is following. 05/19: no improvements in neuro exam. ready for LTAC. will d/c moser and rectal tubes. 05/20: no changes or improvements. very difficult placement due to patient not [place] citizen. 05/21: no improvements. resting on vent overnight due to distress. 05/22: no neurologic changes. no improvements. attempted T-piece which failed after 10 minutes. 05/23: no improvements. poor prognosis. poor neuro exam. still failing weaning trials. 05/24: no improvements or changes. still failing t-piece trials. 05/25: No acute changes of improvement overnight. Failed CPAP due to apnea, tried again currently tolerating. Neurological exam unchanged. 05/26: No improvement in neurological function. 05/27: Patient has required Moser catheter because of breakdown of skin on upper thighs and groin. Urine has become infected, will treat. 05/28: Some drainage from around trach (placed 2 weeks ago). Will change out trach tube and inspect neck wound. I&O straight cath q6h order entered 05/17. 05/29: No improvement, remains obtunded. Failed CPAP trials yesterday and again today due to apnea. Moser placed due to persistent urinary retention 05/30: Obtunded, unresponsive. Failed SBTs, remains ventilator dependent. 05/31: Patient continues to fail SBT failed yesterday due to apnea. Neuro exam remains unchanged. 06/01: No acute changes overnight, 06/02: no changes. ekg done overnight for ? EKG changes seen on telemetry which were not visualized on EKG. 06/03: no improvements or changes. had long conversation with daughter yesterday. only facility which would accept patient is in [place] and daughter is refusing to allow patient to go there because it is "too far away." Daughter continues to push for aggressive care despite no improvements, and resistant to Hospice. Patient does not need acute inpatient therapy but lacks funding for appropriate disposition. 06/04: No acute events overnight, failed SBT due to apnea. 06/05: No acute events, continues to fail spontaneous breathing trials. Unable to wean 06/06 Currently tolerating CPAP. Will attempt TP today up to 4 hours. No acute events overnight 06/07: Tolerating trach collar/T-piece. Transfer soon. 06/08: Awaiting transfer. 06/09: Remains ventilator dependent. No improvement in neurological function. 06/10: No improvement. Daughter is not attending preplanned meetings to discuss disposition 06/12: Afebrile. Neurologically stable and unchanged. Noted sodium 135. Adding sodium chloride tablets 1 today. Not on free water.. Tolerating tube feeds at goal 45 cc an hour. 06/13: No improvement in neurological function. 06/14: No improvement. Fluid balance correct. Gas exchange acceptable. 06/15: No improvement. Obtunded and unresponsive. 06/16: no improvements in mental status. KUB overnight with dilated small bowel loops. given methylnaltrexone and erythromycin. today abdomen is soft and tolerating tube feeds. 06/17: tolerated t-piece x 6 hours yesterday. rested on cpap overnight. no changes in encephalopathy. 06/18: Currently on ventilator overnight. Multiple bowel movements. Thick yellow secretions noted in ventilator circuit. Opens eyes. 06/19: Afebrile. Tolerating stretcher chair yesterday on PSV. Tolerating tube feeding. Neurologically unchanged. 06/20: Afebrile. Resting in bed in no acute distress in sitting position. Currently on ventilator set sitting. Tolerated stretcher chair/PSV trial 6 hours yesterday. Neurologically unchanged. 06/21: Tmax 100.8. Patient with copious thick yellow secretions. Tolerating tube feeds. Positive bowel movement. Lasted only 1 hour PSV yesterday 06/22: Tmax 99.9. Continues to have thick secretions. Tolerating tube feeding. Positive BM. 06/23: Afebrile. Continues to have thick tracheal secretions from tracheostomy site. Tolerating tube feeding. 3 bowels movements. Opens eyes to stimulation. Stares at you but does not follow commands. 06/24: Remains encephalopathic, on mechanical ventilation via tracheostomy. Tolerating PEG feeds 06/25: Remains encephalopathic on mechanical ventilation. Tolerated C Pap +5 with pressure support +10 all day yesterday. Tolerating PEG feeds. 06/26: No improvement.Vent dependent still. 06/27: Remains encephalopathic, on mech vent via trach. Daily CPAP trials. 06/28: Unable to wean from ventilator. 06/29: Neurologically unchanged. Remains on mechanical ventilation. Daily C Pap trials ongoing. 06/30: Remains encephalopathic. On C Pap overnight. Tolerating tube feeds. 07/01: No change in neurologic status. On mechanical ventilation via tracheostomy. Tolerating tube feeds. 07/02: Remains encephalopathic. No change in neurologic status. On mechanical ventilation via tracheostomy. Daily C Pap trials ongoing. 07/03: Occasional spontaneous eye opening however remains encephalopathic. On mechanical ventilation via tracheostomy. 07/04: Tmax 99.2. Multiple bowel movements overnight. Tolerating tube feeds. On T piece trial at 5 L since noon yesterday. Otherwise neurologically unchanged. Daughter encouraged by movement of left leg. 07/05: Currently resting in bed on T piece 36 hours. Tolerates chair. No changes neurologically. Positive BM's. Tolerating her tube feeding. 07/06: Continue T-piece trials, if tolerated consider transfer to floor. 07/07: Extended T-piece trial. Plan transfer to floor. 07/09: Patient is experiencing apnea episodes and had to be placed back on higher FiO2.. Hold transfer. 07/10: X-ray left hip shows good anatomic alignment. Still requiring elevated FiO2. 07/11: Prealbumin 20, nutritional support is adequate and status is stable. No neurological improvement. 07/12: No improvement in neurological function. Continued acceptable respiratory effort. 07/13: No change. 10/03/17 Dr. Rizo notified sand mill operator that patient would be transferring to ICU. Patient is known to [facility] service. She was originally admitted 04/20/17 after a fall with hip fracture resulting in ORIF 04/21. Postoperatively, she developed large R MCA stroke with midline shift. Her neurologic condition remained poor and she underwent trach 05/15/17 and PEG 05/16/17. She was eventually transitioned to Tpiece and transferred to floor. She has suffered from multiple infectious complications due to her persistent bedfast and trach dependent state. 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 She has been on trach collar with worsening hypoxemia therefore she is transferred to [facility]. CXR from yesterday demonstrates bilateral pulmonary infiltrates. She has also had hyperkalemia today up to 6.7 which has been treated with kayexalate, down to 6. 2: improvement in air space disease with diuresis and bronch yesterday. no overall improvements in chronic poor prognosis. unlikely to survive this hospital stay. daughter has poor insight into the gravity of her mother's medical condition. she will not recover meaningfully. 10/05: continuing to clinically improve from a respiratory standpoint. no improvements in overall poor function. off vent on t-piece today. can likely transition out of ICU tomorrow. 10/06 No events overnight. Remains on ventilator via trach. Afebrile. 10/07 No events overnight. Afebrile. 10/08 Patient is on ventilator via trach. afebrile. 10/09 No events overnight. Tolerating tube feeds. Afebrile. 10/10 Patient is on ventilators via trach. 10/11: Nursing reported patient intermittently follow commands today. BUN slightly elevated. Patient tolerating tube feeding 10/12: The patient tolerated CPAP for approximately 6 hours yesterday. No acute changes overnight. No neurological change in status. 10/13 No events overnight. Afebrile. 10/14 Patient remains on ventilator via trach. Afebrile. Didn't tolerate CPAP trials earlier today. 10/15: no changes. patient remains on the ventilator. unable to wean. 10/16: no improvements. no changes. PSV trials ongoing, not ready for SBT. 10/17 No events overnight. On CPAP. 10/18 Patient remains on ventilator via trach tolerating CPAP trials. 10/19 No events overnight. afebrile. WBC is trending down. 10/20 Patient is on CPAP with PS 15, PEEP:5 Awake, afebrile. 10/21, 10/22, 10/23: Remains on mechanical ventilation via tracheostomy. 10/24 No events overnight. On CPAP with PS 12, PEEP:5 and FIO2 30%,. 10/25 Labs pending. Afebrile. Subjective 10/26: Afebrile. Bradycardic. No new issues past 24 hours. Appears comfortable on Vent. 10/27 No events overnight. Afebrile. On TP's with 50% FIO2. 10/28 Patient remains on TP's with 50% FIO2. Afebrile. Objective Vital Signs Date Time Temp Pulse Resp B/P (MAP) Pulse Ox O2 Delivery O2 Flow Rate FiO2 10/28/17 08:00 98.0 92 20 123/64 (83) 96 10/28/17 08:00 50 10/28/17 04:05 T-piece 6.00 Intake and Output 10/28/17 10/28/17 10/29/17 08:00 16:00 00:00 Intake Total 933 ml Output Total 1150 ml Balance -217 ml Result Diagram: 10/28/1772610/28/17726 Other Results Laboratory Tests Test 10/28/17 07:27 White Blood Count 11.2 TH/MM3 Red Blood Count 2.49 MIL/MM3 Hemoglobin 8.3 GM/DL Hematocrit 24.2 % Mean Corpuscular Volume 97.0 FL Mean Corpuscular Hemoglobin 33.4 PG Mean Corpuscular Hemoglobin Concent 34.4 % Red Cell Distribution Width 17.0 % Platelet Count 323 TH/MM3 Mean Platelet Volume 8.9 FL Neutrophils (%) (Auto) 68.5 % Lymphocytes (%) (Auto) 17.7 % Monocytes (%) (Auto) 8.1 % Eosinophils (%) (Auto) 4.5 % Basophils (%) (Auto) 1.2 % Neutrophils # (Auto) 7.7 TH/MM3 Lymphocytes # (Auto) 2.0 TH/MM3 Monocytes # (Auto) 0.9 TH/MM3 Eosinophils # (Auto) 0.5 TH/MM3 Basophils # (Auto) 0.1 TH/MM3 CBC Comment AUTO DIFF Differential Total Cells Counted 100 Neutrophils % (Manual) 59 % Band Neutrophils % 6 % Lymphocytes % 20 % Monocytes % 5 % Eosinophils % 8 % Neutrophils # (Manual) 7.5 TH/MM3 Myelocytes 2 % Differential Comment FINAL DIFF MANUAL Atypical Lymphocytes % Platelet Estimate NORMAL Platelet Morphology Comment NORMAL Polychromasia 2.0 % Blood Urea Nitrogen 32 MG/DL Creatinine 0.48 MG/DL Random Glucose 116 MG/DL Calcium Level 9.1 MG/DL Sodium Level 134 MEQ/L Potassium Level 4.7 MEQ/L Chloride Level 101 MEQ/L Carbon Dioxide Level 28.2 MEQ/L Anion Gap 5 MEQ/L Estimat Glomerular Filtration Rate 126 ML/MIN Imaging Last Impressions Chest X-Ray 10/27/17 0600 Signed Impressions: Service Date/Time: Friday, October 27, 2017 04:26 - CONCLUSION: 1. Mild positive fluid balance which appears slightly more prominent likely due to the lower lung volumes. 2. Mild bibasilar airspace disease, presumably atelectasis. Alejo De La Vega MD Abdomen X-Ray 10/10/17 0000 Signed Impressions: Service Date/Time: Tuesday, October 10, 2017 11:35 - CONCLUSION: No dilated bowel loops. Benja Ramsey MD Thoracentesis 08/05/17 1535 Signed Impressions: Service Date/Time: Saturday, August 05, 2017 16:08 - CONCLUSION: Uncomplicated CT-guided thoracentesis. Sage Adler MD Chest Ultrasound 08/02/17 0000 Signed Impressions: Service Date/Time: Tuesday, August 01, 2017 22:06 - CONCLUSION: 1. Moderate right pleural effusion, as above. Alejo De La Vega MD Hip and Pelvis X-Ray 07/09/17 0000 Signed Impressions: Service Date/Time: Sunday, July 09, 2017 14:04 - CONCLUSION: Anatomic alignment. Ricardo Middleton MD FACR Liver Ultrasound 06/19/17 0000 Signed Impressions: Service Date/Time: June 13:20 - CONCLUSION: 1. Mildly increased echotexture of the liver characteristic of hepatic steatosis. 2. Gallbladder sludge. Obdulio Sam MD Head CT 05/15/17 0000 Signed Impressions: Service Date/Time: May 19:59 - CONCLUSION: 1. 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 2. No bleed or new/acute infarct. Obdulio Simms MD Gall Bladder Ultrasound 05/08/17 0000 Signed Impressions: Service Date/Time: May 08:23 - CONCLUSION: Focally unremarkable appearance of the gallbladder Obdulio Chun MD Abdomen/Pelvis CT 05/07/17 0000 Signed Impressions: Service Date/Time: Sunday, May 07, 2017 13:23 - CONCLUSION: 1. Large left pneumothorax. 2. Bilateral lower lobe consolidation and bilateral moderate size pleural effusions. 3. Significant soft tissue thickening of the right lateral chest wall and left gluteus muscle. 4. Mild ascites. The findings were called to Dr. Carney. Deangelo Zamora MD Chest CT 04/30/17 0000 Signed Impressions: Service Date/Time: Sunday, April 30, 2017 09:20 - CONCLUSION: 1. Bilateral pulmonary infiltrates more pronounced within the lower lobes with tiny bilateral pleural effusions. Material seen filling the lower lobe bronchi bilaterally either related to purulent material or perhaps mucus plugging. Deangelo Wren Jr., MD Carotid Artery Ultrasound 04/24/17 0000 Signed Impressions: Service Date/Time: April 09:45 - CONCLUSION: 1. No hemodynamically significant carotid artery stenosis. Arnie Middleton MD Hip X-Ray 04/21/17 0000 Signed Impressions: Service Date/Time: Friday, April 21, 2017 11:36 - CONCLUSION: Fluoroscopic images during placement of intramedullary siomara left femur. Benja Ramsey MD Objective Remarks GENERAL: 77 yo female, laying in bed on mechanical ventilation via tracheostomy. SKIN: Warm and dry, adequately perfused. 2 cm x 1 cm deep tissue injury over 1st MTP joint of left foot, 1.0cm x 0.5 DTI Coccyx HEAD: Atraumatic. Normocephalic. mucous membranes moist and pink OP no thrush.. NECK: 8.[address] Trachea midline. No JVD. CARDIOVASCULAR: Bradycardic, RR. S1, S2. No S4. No M/C/G/R RESPIRATORY: Coarse crackles Right posterior on inhalation. Symm. Excur. GASTROINTESTINAL: Abdomen soft, non-tender, nondistended. PEG in place site benign appearing. Dignishield in place. MUSCULOSKELETAL: Extremities without significant peripheral edema. No obvious deformities. NEUROLOGICAL: Eyes open spontaneously, L gaze preference. R side flaccid. Follows commands with LUE. Slight spontaneous movements of LLE. A/P Assessment and Plan Neuro/Psych: Left MCA CVA - 5.5 mm of [id number] subfalcine herniation, diagnosed 04/24. Persistent right-sided hemiparesis. Also prior h/o Stroke Continue Aspirin 325 mg by tube daily. Stroke occurred 04/24/17. Patient was not a candidate for thrombolysis per discussion with neurology and radiology at that time. Repeat head CT 05/15 showed slight improvement in the midline shift now 5.5 mm and mass effect Neurosurgery consulted 04/30- Dr. López, recommended conservative management, now signed off. Neurology Dr. Malave has followed previously, signed off. Acetominophen 650 mg PEG q6h prn fever. Fentanyl 50 mcg IV q1h PRN pain Cardiovascular: Essential Hypertension Chronic systolic and diastolic heart failure Amlodipine 10 mg po daily, Doxazosin 1 mg peg daily, hydralazine 10 mg per per peg q8 hours. clonidine 0.1 mg q6h prn SBP >160 Echo 10/06/17 LVSF is severely reduced with an estimated ejection fraction in the range of 25-30%. Doppler parameters are consistent with impaired left ventricular relaxtion (grade 1 diastolic dysfunction). There is diffuse global hypokinesis with distinct regional wall motion abnormalities. Normal left ventricular size. Wall thickness is normal. Mid anterolateral, apical, and inferoapical akinesis. Pulmonary: Chronic Tracheostomy Recurrent episode Acute hypoxemic respiratory failure 10/03/17. Acute hypoxic respiratory failure - aspiration possible HCAP - previous episode resolved. Large left pneumothorax status post #10 Thai chest tube 05/07 - resolved.Chest tube d/c'd 05/12/17 R pleural effusion - On TP's with 50% FIO2 keep sats >92% Ipratropium/albuterol aerosols every 6 hours with albuterol aerosols every 2 hours prn dyspnea Pulm toilet, trach care Pulm is following, Dr. Rizo GI/liver: Elevated transaminases, resolved Severe protein calorie malnutrition Small bowel ileus- resolved Hepatitis C antibody positive with negative genotype/viral load Hepatic steatosis Currently on PEG tube feeding with Glucerna 1.5 goal 45 cc an hour per nutrition rec 10/20/17. KUB abdomen 10/10: No dilated bowel loops Beneprotein tid prn constipation. Lansoprazole 30 mg daily for GI regimen Endocrine: Diabetes mellitus SSI Novulin R High-dose every 6 hours, Levemir insulin 8u Q12 /Renal/FEN: Hypernatremia, resolved Monitor renal function. I/O's, electrolytes replacement as needed Heme: Chronic Rivaroxaban use prior to admission Leukocytosis Normocytic anemia Follow CBC and coags. ID: Serratia Marcescens VAP E. Faecium UTI MDR Pseudomonas aeruginosa and pneumonia (HCAP) MSSA bacteremia - resolved. Serratia/staph aureus pneumonia - resolved. C glabrata UTI - resolved. Citrobacter UTI - resolved. Serratia/MSSA sputum VAP resolved Current relevant cultures: 09/25/17 -sputum culture - Pseudomonas aeruginosa, multidrug resistant ( including Zerbaxa and Avycaz resistance). s/p Colistin nebs(09/30- 10/21) Per ID sputum cx from 10/18: (Serratia Marcescens) urine from 10/18 - (E. Faecium VRE) Lactobacillus 1 tab bid Prior cultures: Urine culture 04/26/17 sofie glabrata Blood culture 04/29/17 1 out of 4 bottles staph aureus Sputum culture 04/30/17 MSSA and Serratia. urine 05/07-> Serratia, treated. Urine 05/25: Citrobacter MSK: Left Intertroch Hip Fx s/p IMN 04/21/17. Vitamin D deficiency Sacral decubitus ulcer, Previously stage III, healing. Nonstageable pressure wound MTP L foot - Podiatry evaluated 10/23 and recommended against debridement because it would likely leave joint capsule exposed with rapid progression to osteomyelitis. Wound care following. Continue calcium vitamin D 250/125 one tablet 3x a day and cholecalciferol 5000 units daily. PT/OT evaluate and treat Cleanse buttock area with incontinence barrier wipes and apply Calazime barrier cream BID and PRN and leave open to air Apply skin prep to L medial foot DTI Continue to turn patient every 2 hours or PRN for comfort. Please use one UltraSorb for moisture. Please use flat sheet for repositioning on specialty surface. Continue Beneprotein one packet 3x a day prn Prophylaxis: SCDs. Heparin 5000 subcutaneous q8 hours. GI - Lansoprazole 30 mg by PEG tube daily ACCESS: PIV. Level 1 followup Kristel Durant MD Oct 28, 2017 10:40
[2017-10-28] MEDS: DEXTROSE 50% IN WATER 50 ML VIAL(D50) IV PUSH PRN (17:42)
--- NOTE | 2017-10-28 19:17 | HHI.PR ---
Subjective Remarks Patient remains on ventilator via trach. On Trach collar Fi02 35% Tolerates TF Objective Vital Signs Vital Signs Date Time Temp Pulse Resp B/P (MAP) Pulse Ox O2 Delivery O2 Flow Rate FiO2 10/28/17 16:00 98.6 90 20 130/65 (86) 99 10/28/17 16:00 50 10/28/17 12:00 98.2 87 20 127/67 (87) 98 10/28/17 12:00 50 10/28/17 11:20 99 T-piece 35 10/28/17 08:00 98.0 92 20 123/64 (83) 96 10/28/17 08:00 50 10/28/17 08:00 94 10/28/17 04:05 99 T-piece 6.00 50 10/28/17 04:00 98.5 82 20 152/70 (97) 99 10/28/17 04:00 50 10/28/17 00:00 98.9 74 22 141/64 (89) 99 10/28/17 00:00 50 10/27/17 20:07 100 T-piece 6.00 50 10/27/17 20:00 81 10/27/17 20:00 98.7 95 20 117/62 (80) 99 10/27/17 20:00 50 I/O 10/27/17 10/27/17 10/27/17 10/28/17 10/28/17 10/28/17 07:00 15:00 23:00 07:00 15:00 23:00 Intake Total 911 ml 880 ml 933 ml 600 ml Output Total 300 ml 300 ml 1150 ml 400 ml Balance 611 ml 580 ml -217 ml 200 ml Tube Feeding 511 ml 480 ml 533 ml 200 ml Other 400 ml 400 ml 400 ml 400 ml Output Urine Total 300 ml 200 ml 950 ml 400 ml Stool Total 0 ml 100 ml 200 ml # Voids 3 Result Diagram: 10/28/1772610/28/17726 Objective Remarks GENERAL: Elderly female,NAD SKIN: Warm and dry. HEAD: Normocephalic. EYES: No scleral icterus. No injection or drainage. NECK: Supple, trachea midline. No JVD or lymphadenopathy. + trach CARDIOVASCULAR: Regular rate and rhythm without murmurs, gallops, or rubs. RESPIRATORY: Breath sounds equal bilaterally. No accessory muscle use. GASTROINTESTINAL: Abdomen soft, non-tender, nondistended. MUSCULOSKELETAL: No cyanosis, or edema. BACK: Nontender without obvious deformity. No CVA tenderness. A/P Assessment and Plan VDRF ,S/P Trach CVA Pneumonia Atelectasis Pseudomonas Tracheobronchitis, PLAN: ContinueTrach collar Bronchodilators, ICU vent bundle Pulm toilet, trach care Off abx , monitor for signs of infections ( Fever, WBC) WBC trending down Continue with tube feeds- Glucerna 1.5 with goal rate 45ml/hr GI/DVT prophylaxis Chris Rizo MD Oct 28, 2017 19:17
[2017-10-29] VITALS (9 sets, daily range): BP systolic 113–141; BP diastolic 66–75; PULSE 79–102; RESP 18–20; TEMP 97.7–99; O2SAT 92–100
[2017-10-29] MEDS: RESP: ALBUTEROL 2.5 MG/IPRATROPIUM 0.5 MG NEB (SCH) NEB ×2 (04:05→08:34)
[2017-10-29] MEDS: hydrALAZINE HCL 10 MG TAB PEG SCH ×3 (05:28→21:24)
[2017-10-29] MEDS: HEPARIN SODIUM - SQ 10,000 UNITS/ML VIAL SQ SCH ×3 (05:28→21:24)
[2017-10-29] MEDS: INSULIN NovoLIN REGULAR SUPPLEMENTAL SCALE SQ SCH ×4 (05:59→17:51)
[2017-10-29] MEDS: ARTIFICIAL TEARS OPTH SOLN 15 ML BTL EACH EYE SCH ×3 (07:07→21:24)
[2017-10-29] MEDS: CHLORHEXIDINE 0.12% (ORAL KIT) 15 ML CUP MT SCH ×2 (08:00→21:24)
[2017-10-29] MEDS: LANSOPRAZOLE SOLUTAB 30 MG TAB NG SCH (08:21)
[2017-10-29] MEDS: DOXAZOSIN MESYLATE 1 MG TAB PEG SCH (08:21)
[2017-10-29] MEDS: ASPIRIN 325 MG TAB DOBHOFF SCH (08:21)
[2017-10-29] MEDS: LACTOBACILLUS ACIDOPHILUS TAB PEG SCH ×2 (08:21→21:24)
[2017-10-29] MEDS: SODIUM CHLORIDE 0.9% FLUSH 5 ML FLUSH IV FLUSH SCH ×2 (08:22→21:00)
[2017-10-29] MEDS: CHOLECALCIFEROL (VIT D3) 5000 UNIT CAP PEG SCH (08:22)
[2017-10-29] MEDS: CALCIUM/VITAMIN D 250 MG/125 U TAB PEG SCH ×3 (08:22→17:50)
[2017-10-29 09:54] LABS: AUTOMATED NEUTROPHIL # 6.3 TH/MM3 (1.8-7.7); BASOPHIL # 0.1 TH/MM3 (0-0.2); BASOPHIL % 0.8 % (0.0-2.0); EOSINOPHIL # 0.5 TH/MM3 (0-0.4); EOSINOPHIL % 5.1 % (0.0-4.0); HEMATOCRIT 23.6 % (35.0-46.0); HEMOGLOBIN 8.1 GM/DL (11.6-15.3); LYMPH % 24.6 % (9.0-44.0); LYMPHOCYTE # 2.5 TH/MM3 (1.0-4.8); MEAN CELL VOLUME 97.4 FL (80.0-100.0); MEAN CORPUSCULAR HEMOGLOBIN 33.5 PG (27.0-34.0); MEAN CORPUSCULAR HGB CONC 34.5 % (32.0-36.0); MEAN PLATELET VOLUME 8.6 FL (7.0-11.0); MONO % 8.7 % (0.0-8.0); MONOCYTE # 0.9 TH/MM3 (0-0.9); NEUT % 60.8 % (16.0-70.0); PLATELET COUNT 317 TH/MM3 (150-450); RED BLOOD COUNT 2.43 MIL/MM3 (4.00-5.30); RED CELL DISTRIBUTION WIDTH 16.4 % (11.6-17.2); WHITE BLOOD COUNT 10.3 TH/MM3 (4.0-11.0)
[2017-10-29 10:21] LABS: BICARBONATE 30.7 MEQ/L (21.0-32.0); CALCIUM 9.3 MG/DL (8.5-10.1); CREATININE 0.5 MG/DL (0.50-1.00)
--- NOTE | 2017-10-29 10:50 | HHI.CCPN ---
Subjective Remarks/Hospital Course 04/24: 76-year-old female with a medical history significant for prior stroke, diabetes mellitus who was admitted with DKA and a hip fracture for which she underwent ORIF on 04/21. Patient developed altered mental status and was last noted to be okay around 5:30 AM. Subsequently there was a change in her mental status and she was noted to not be moving her right side for which stroke alert was called. Head CT showed large left MCA territory ischemic infarct with edema. Patient was transferred to the ICU by family medicine service in the critical care consult was requested. I evaluated the patient following arrival to the ICU. At that time she was laying in bed with her eyes open however not following commands and had a dense right hemiplegia. Patient was also evaluated by Dr. Malave from neurology. [facility] further discussed current event with patient's daughter following her arrival to the ICU. Per the daughter patient has been living with her since her stroke in 2014 and does ambulate however has been having problems with memory and incontinence as well as gait difficulties. She does not feel patient would want intubation or tracheostomy or PEG tube. 04/25: Patient remains encephalopathic, awake though not following commands consistently. Dense right hemiplegia persists. Appears to be awake enough to protect airway currently. Patient's daughter rescinded DNR and made a full code last evening. 04/26: Remains encephalopathic, not following commands. On Dobbhoff for tube feeds at 30 cc per hour. Had urinary retention and drained 2 L of urine after placing Moser catheter today. CT head done this morning with large left MCA territory infarct with left to right midline shift and significant cerebral edema. Hyperglycemia noted. Patient given mannitol earlier for increasing cerebral edema. 04/27: Remains encephalopathic, not following commands. On Dobbhoff tube feeds at 30 cc per hour. When into A. fib with RVR last night which responded with Lopressor 5 mg IV 1 dose. 04/28: Remains encephalopathic, arousable, not following commands. Moves left upper extremity spontaneously. Tolerating Dobbhoff tube feeds. Remains on nasal cannula. 04/29: Encephalopathic, eyes be arousable, moves left upper extremity spontaneously and occasionally opens eyes. Dense right hemiplegia and aphasia persists. On nasal cannula. Dobbhoff tube feeds being advanced. Patient was transfused 1 unit PRBCs yesterday. Urine culture with yeast from yesterday for which fluconazole being started. Had brief run of A. fib with RVR which improved with Lopressor IV, currently in sinus rhythm. 04/30: Worsening hypoxemic respiratory failure, currently on partial nonrebreather. Remains lethargic. WBC count increased from 14.6 today 20.7. Chest x-ray shows bilateral worsening infiltrates and small pleural effusions. Sodium 154, weight up by 8 KG. Albumin 1 mg Bumex 1. Also one dose of albumin. Remains in sinus tachycardia. Tmax 101.3 05/01: Patient was intubated yesterday for lack of airway protection, and severe hypoxemic respiratory failure from aspiration pneumonia involving multiple lobes. Patient is on the vent lethargic, no spontaneous eye opening. Chest x- ray remains unchanged. Remains intermittently febrile Tmax 101.3. WBC count improving 05/02: Remains critically ill with no improvement in mental status. Spiking fever of 101.7. Blood culture and sputum culture with staph aureus sputum also growing GNR, WBC count 22,000 now indicating worsening sepsis. Daughter still requesting aggressive care. Palliative care is following 05/03: S/P large area dominant hemisphere CVA. No neurological improvement. Now with pneumonia (infiltrate, fever, leukocytosis) and appropriate abx coverage. She will have a hard time surviving the hip fx, CVA, and pneumonia. Palliative Care needs to be a mainstay of our plan. 05/04: No improvement in neuro status. Sputum C&S allows us to narrow abx coverage to levaquin alone. Lungs remain quite congested. Enteral nutrition tolerated. 05/05: No improvement in neuro status. Moves left arm spontaneously. Flaccid right side. Unresponsive. Persistent mild hypoglycemia - will cut Levemir 50%. Abdomen more distended, check KUB. 05/06: CT head with massive left MCA infarction and > 1 cm shift in right handed woman. She opens eyes, does not track. 05/07: Patient open eyes. Attempts to respond. Estonian speaking. Tolerating tube feeds. Positive bowel movement. Volume overloaded. 05/08: Tmax 99.4. Potassium being replaced. Ultrasound gallbladder currently pending. Transaminases are trending downward. Gently diurese. 05/09: Alk phos decreasing. Remains with good urine output. Neurological status not improving. 05/10: Fixed neuro deficit unchanged. Profound CVA. 05/11: Appears to track with eyes today. No improvement in motor function. Remains very edematous, diuretics doubled. 05/12: Continued thick secretions. Afebrile, leukocytosis resolved. 05/13: CT head with completed left MCA stroke, persistent edema and 5 mm shift away. Does not last long on SBTs - major decision now is trach/PEG. 05/14: Daughter has decided to proceed with trach and PEG. I have been pessimistic with her about chances for a meaningful recovery. 05/15: Plan for trach today. No change in neuro status. Still ventilator dependent. 05/16: Trach completed. Await PEG and disposition. 05/17: PEG placed 05/16. Start TFs today after nutrition consult. Work to place patient. 05/18: No improvement. Does open eyes, no focus or tracking. Completed large dominant (left) hemisphere CVA in right handed woman with severe deficit. Medicaid pending status, [facility] is following. 05/19: no improvements in neuro exam. ready for LTAC. will d/c moser and rectal tubes. 05/20: no changes or improvements. very difficult placement due to patient not [place] citizen. 05/21: no improvements. resting on vent overnight due to distress. 05/22: no neurologic changes. no improvements. attempted T-piece which failed after 10 minutes. 05/23: no improvements. poor prognosis. poor neuro exam. still failing weaning trials. 05/24: no improvements or changes. still failing t-piece trials. 05/25: No acute changes of improvement overnight. Failed CPAP due to apnea, tried again currently tolerating. Neurological exam unchanged. 05/26: No improvement in neurological function. 05/27: Patient has required Moser catheter because of breakdown of skin on upper thighs and groin. Urine has become infected, will treat. 05/28: Some drainage from around trach (placed 2 weeks ago). Will change out trach tube and inspect neck wound. I&O straight cath q6h order entered 05/17. 05/29: No improvement, remains obtunded. Failed CPAP trials yesterday and again today due to apnea. Moser placed due to persistent urinary retention 05/30: Obtunded, unresponsive. Failed SBTs, remains ventilator dependent. 05/31: Patient continues to fail SBT failed yesterday due to apnea. Neuro exam remains unchanged. 06/01: No acute changes overnight, 06/02: no changes. ekg done overnight for ? EKG changes seen on telemetry which were not visualized on EKG. 06/03: no improvements or changes. had long conversation with daughter yesterday. only facility which would accept patient is in [place] and daughter is refusing to allow patient to go there because it is "too far away." Daughter continues to push for aggressive care despite no improvements, and resistant to Hospice. Patient does not need acute inpatient therapy but lacks funding for appropriate disposition. 06/04: No acute events overnight, failed SBT due to apnea. 06/05: No acute events, continues to fail spontaneous breathing trials. Unable to wean 06/06 Currently tolerating CPAP. Will attempt TP today up to 4 hours. No acute events overnight 06/07: Tolerating trach collar/T-piece. Transfer soon. 06/08: Awaiting transfer. 06/09: Remains ventilator dependent. No improvement in neurological function. 06/10: No improvement. Daughter is not attending preplanned meetings to discuss disposition 06/12: Afebrile. Neurologically stable and unchanged. Noted sodium 135. Adding sodium chloride tablets 1 today. Not on free water.. Tolerating tube feeds at goal 45 cc an hour. 06/13: No improvement in neurological function. 06/14: No improvement. Fluid balance correct. Gas exchange acceptable. 06/15: No improvement. Obtunded and unresponsive. 06/16: no improvements in mental status. KUB overnight with dilated small bowel loops. given methylnaltrexone and erythromycin. today abdomen is soft and tolerating tube feeds. 06/17: tolerated t-piece x 6 hours yesterday. rested on cpap overnight. no changes in encephalopathy. 06/18: Currently on ventilator overnight. Multiple bowel movements. Thick yellow secretions noted in ventilator circuit. Opens eyes. 06/19: Afebrile. Tolerating stretcher chair yesterday on PSV. Tolerating tube feeding. Neurologically unchanged. 06/20: Afebrile. Resting in bed in no acute distress in sitting position. Currently on ventilator set sitting. Tolerated stretcher chair/PSV trial 6 hours yesterday. Neurologically unchanged. 06/21: Tmax 100.8. Patient with copious thick yellow secretions. Tolerating tube feeds. Positive bowel movement. Lasted only 1 hour PSV yesterday 06/22: Tmax 99.9. Continues to have thick secretions. Tolerating tube feeding. Positive BM. 06/23: Afebrile. Continues to have thick tracheal secretions from tracheostomy site. Tolerating tube feeding. 3 bowels movements. Opens eyes to stimulation. Stares at you but does not follow commands. 06/24: Remains encephalopathic, on mechanical ventilation via tracheostomy. Tolerating PEG feeds 06/25: Remains encephalopathic on mechanical ventilation. Tolerated C Pap +5 with pressure support +10 all day yesterday. Tolerating PEG feeds. 06/26: No improvement.Vent dependent still. 06/27: Remains encephalopathic, on mech vent via trach. Daily CPAP trials. 06/28: Unable to wean from ventilator. 06/29: Neurologically unchanged. Remains on mechanical ventilation. Daily C Pap trials ongoing. 06/30: Remains encephalopathic. On C Pap overnight. Tolerating tube feeds. 07/01: No change in neurologic status. On mechanical ventilation via tracheostomy. Tolerating tube feeds. 07/02: Remains encephalopathic. No change in neurologic status. On mechanical ventilation via tracheostomy. Daily C Pap trials ongoing. 07/03: Occasional spontaneous eye opening however remains encephalopathic. On mechanical ventilation via tracheostomy. 07/04: Tmax 99.2. Multiple bowel movements overnight. Tolerating tube feeds. On T piece trial at 5 L since noon yesterday. Otherwise neurologically unchanged. Daughter encouraged by movement of left leg. 07/05: Currently resting in bed on T piece 36 hours. Tolerates chair. No changes neurologically. Positive BM's. Tolerating her tube feeding. 07/06: Continue T-piece trials, if tolerated consider transfer to floor. 07/07: Extended T-piece trial. Plan transfer to floor. 07/09: Patient is experiencing apnea episodes and had to be placed back on higher FiO2.. Hold transfer. 07/10: X-ray left hip shows good anatomic alignment. Still requiring elevated FiO2. 07/11: Prealbumin 20, nutritional support is adequate and status is stable. No neurological improvement. 07/12: No improvement in neurological function. Continued acceptable respiratory effort. 07/13: No change. 10/03/17 Dr. Rizo notified driller's assistant that patient would be transferring to ICU. Patient is known to [facility] service. She was originally admitted 04/20/17 after a fall with hip fracture resulting in ORIF 04/21. Postoperatively, she developed large R MCA stroke with midline shift. Her neurologic condition remained poor and she underwent trach 05/15/17 and PEG 05/16/17. She was eventually transitioned to Tpiece and transferred to floor. She has suffered from multiple infectious complications due to her persistent bedfast and trach dependent state. 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 She has been on trach collar with worsening hypoxemia therefore she is transferred to [facility]. CXR from yesterday demonstrates bilateral pulmonary infiltrates. She has also had hyperkalemia today up to 6.7 which has been treated with kayexalate, down to 6. 2: improvement in air space disease with diuresis and bronch yesterday. no overall improvements in chronic poor prognosis. unlikely to survive this hospital stay. daughter has poor insight into the gravity of her mother's medical condition. she will not recover meaningfully. 10/05: continuing to clinically improve from a respiratory standpoint. no improvements in overall poor function. off vent on t-piece today. can likely transition out of ICU tomorrow. 10/06 No events overnight. Remains on ventilator via trach. Afebrile. 10/07 No events overnight. Afebrile. 10/08 Patient is on ventilator via trach. afebrile. 10/09 No events overnight. Tolerating tube feeds. Afebrile. 10/10 Patient is on ventilators via trach. 10/11: Nursing reported patient intermittently follow commands today. BUN slightly elevated. Patient tolerating tube feeding 10/12: The patient tolerated CPAP for approximately 6 hours yesterday. No acute changes overnight. No neurological change in status. 10/13 No events overnight. Afebrile. 10/14 Patient remains on ventilator via trach. Afebrile. Didn't tolerate CPAP trials earlier today. 10/15: no changes. patient remains on the ventilator. unable to wean. 10/16: no improvements. no changes. PSV trials ongoing, not ready for SBT. 10/17 No events overnight. On CPAP. 10/18 Patient remains on ventilator via trach tolerating CPAP trials. 10/19 No events overnight. afebrile. WBC is trending down. 10/20 Patient is on CPAP with PS 15, PEEP:5 Awake, afebrile. 10/21, 10/22, 10/23: Remains on mechanical ventilation via tracheostomy. 10/24 No events overnight. On CPAP with PS 12, PEEP:5 and FIO2 30%,. 10/25 Labs pending. Afebrile. Subjective 10/26: Afebrile. Bradycardic. No new issues past 24 hours. Appears comfortable on Vent. 10/27 No events overnight. Afebrile. On TP's with 50% FIO2. 10/28 Patient remains on TP's with 50% FIO2. Afebrile. 10/29: Remains on 35% TP. Had been on T piece without going back on the vent for last 3 days Objective Vital Signs Date Time Temp Pulse Resp B/P (MAP) Pulse Ox O2 Delivery O2 Flow Rate FiO2 10/29/17 08:35 100 T-piece 6.00 35 10/29/17 08:00 88 10/29/17 08:00 97.7 20 117/66 (83) Intake and Output 10/29/17 10/29/17 10/30/17 08:00 16:00 00:00 Intake Total 1000 ml Output Total 650 ml Balance 350 ml Result Diagram: 10/29/17 0912 10/29/17 0912 Imaging Last Impressions Chest X-Ray 10/27/17 0600 Signed Impressions: Service Date/Time: Friday, October 27, 2017 04:26 - CONCLUSION: 1. Mild positive fluid balance which appears slightly more prominent likely due to the lower lung volumes. 2. Mild bibasilar airspace disease, presumably atelectasis. Alejo De La Vega MD Abdomen X-Ray 10/10/17 0000 Signed Impressions: Service Date/Time: Tuesday, October 10, 2017 11:35 - CONCLUSION: No dilated bowel loops. Benja Ramsey MD Thoracentesis 08/05/17 1535 Signed Impressions: Service Date/Time: Saturday, August 05, 2017 16:08 - CONCLUSION: Uncomplicated CT-guided thoracentesis. Sage Adler MD Chest Ultrasound 08/02/17 0000 Signed Impressions: Service Date/Time: Tuesday, August 01, 2017 22:06 - CONCLUSION: 1. Moderate right pleural effusion, as above. Alejo De La Vega MD Hip and Pelvis X-Ray 07/09/17 0000 Signed Impressions: Service Date/Time: Sunday, July 09, 2017 14:04 - CONCLUSION: Anatomic alignment. Ricardo Middleton MD FACR Liver Ultrasound 06/19/17 0000 Signed Impressions: Service Date/Time: June 13:20 - CONCLUSION: 1. Mildly increased echotexture of the liver characteristic of hepatic steatosis. 2. Gallbladder sludge. Obdulio Sam MD Head CT 05/15/17 0000 Signed Impressions: Service Date/Time: May 19:59 - CONCLUSION: 1. 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 2. No bleed or new/acute infarct. Obdulio Simms MD Gall Bladder Ultrasound 05/08/17 0000 Signed Impressions: Service Date/Time: May 08:23 - CONCLUSION: Focally unremarkable appearance of the gallbladder Obdulio Chun MD Abdomen/Pelvis CT 05/07/17 0000 Signed Impressions: Service Date/Time: Sunday, May 07, 2017 13:23 - CONCLUSION: 1. Large left pneumothorax. 2. Bilateral lower lobe consolidation and bilateral moderate size pleural effusions. 3. Significant soft tissue thickening of the right lateral chest wall and left gluteus muscle. 4. Mild ascites. The findings were called to Dr. Carney. Deangelo Zamora MD Chest CT 04/30/17 0000 Signed Impressions: Service Date/Time: Sunday, April 30, 2017 09:20 - CONCLUSION: 1. Bilateral pulmonary infiltrates more pronounced within the lower lobes with tiny bilateral pleural effusions. Material seen filling the lower lobe bronchi bilaterally either related to purulent material or perhaps mucus plugging. Deangelo Wren Jr., MD Carotid Artery Ultrasound 04/24/17 0000 Signed Impressions: Service Date/Time: April 09:45 - CONCLUSION: 1. No hemodynamically significant carotid artery stenosis. Arnie Middleton MD Hip X-Ray 04/21/17 0000 Signed Impressions: Service Date/Time: Friday, April 21, 2017 11:36 - CONCLUSION: Fluoroscopic images during placement of intramedullary siomara left femur. Benja Ramsey MD Objective Remarks GENERAL: 77 yo female, laying in bed on TP via tracheostomy. SKIN: Warm and dry, adequately perfused. 2 cm x 1 cm deep tissue injury over 1st MTP joint of left foot, 1.0cm x 0.5 DTI Coccyx HEAD: Atraumatic. Normocephalic. no thrush. NECK: 8.[address] Trachea midline[address] No JVD. CARDIOVASCULAR: Bradycardic, RR. S1, S2. No S4. No M/C/G/R RESPIRATORY: Few coarse rhonchi. Symm. Excur. Comfortable on T piece 35% oxygen GASTROINTESTINAL: Abdomen soft, non-tender, nondistended. PEG in place site benign appearing. Dignishield in place. MUSCULOSKELETAL: Extremities without significant peripheral edema. No obvious deformities. NEUROLOGICAL: Eyes open spontaneously, L gaze preference. R side flaccid. Follows commands with LUE. Slight spontaneous movements of LLE. A/P Assessment and Plan Neuro/Psych: Left MCA CVA - 5.5 mm of [id number] subfalcine herniation, diagnosed 04/24. Persistent right-sided hemiparesis. Also prior h/o Stroke Continue Aspirin 325 mg by tube daily. Stroke occurred 04/24/17. Patient was not a candidate for thrombolysis per discussion with neurology and radiology at that time. Repeat head CT 05/15 showed slight improvement in the midline shift now 5.5 mm and mass effect Neurosurgery consulted 04/30- Dr. López, recommended conservative management, now signed off. Neurology Dr. Malave has followed previously, signed off. Acetaminophen 650 mg PEG q6h prn fever. Fentanyl 50 mcg IV q1h PRN pain, Discontinue and start oxycodone PO PRN q6h Cardiovascular: Essential Hypertension Chronic systolic and diastolic heart failure Amlodipine 10 mg po daily, Doxazosin 1 mg peg daily, hydralazine 10 mg per per peg q8 hours. Clonidine 0.1 mg q6h prn SBP >160 Echo 10/06/17 LVSF is severely reduced with an estimated ejection fraction in the range of 25-30%. Doppler parameters are consistent with impaired left ventricular relaxation (grade 1 diastolic dysfunction). There is diffuse global hypokinesis with distinct regional WMA. Normal LV size. Wall thickness is normal. Mid anterolateral, apical, and inferoapical akinesis. Pulmonary: Chronic Tracheostomy Recurrent episode Acute hypoxemic respiratory failure 10/03/17. Acute hypoxic respiratory failure - aspiration possible HCAP - previous episode resolved. Large left pneumothorax status post #10 Albanian chest tube 05/07 - resolved.Chest tube d/c'd 05/12/17 R pleural effusion - On TP's with 35% FIO2 keep sats >92%. On TP >3 days Ipratropium/albuterol aerosols every 6 hours with albuterol aerosols every 2 hours prn dyspnea Pulm toilet, [facility] care Pulmonology is following, Dr. Rizo GI/liver: Elevated transaminases, resolved Severe protein calorie malnutrition Small bowel ileus- resolved Hepatitis C antibody positive with negative genotype/viral load Hepatic steatosis Currently on PEG tube feeding with Glucerna 1.5 goal 45 cc an hour per nutrition rec 10/20/17. KUB abdomen 10/10: No dilated bowel loops Beneprotein tid prn constipation. Lansoprazole 30 mg daily for GI regimen Endocrine: Diabetes mellitus SSI Novulin R High-dose every 6 hours, Levemir insulin 8u Q12 /Renal/FEN: Hypernatremia, resolved Monitor renal function. I/O's, electrolytes replacement as needed Heme: Chronic Rivaroxaban use prior to admission Leukocytosis Normocytic anemia Follow CBC and coags. ID: Serratia Marcescens VAP E. Faecium UTI MDR Pseudomonas aeruginosa and pneumonia (HCAP) MSSA bacteremia - resolved. Serratia/staph aureus pneumonia - resolved. C glabrata UTI - resolved. Citrobacter UTI - resolved. Serratia/MSSA sputum VAP resolved Current relevant cultures: 09/25/17 -sputum culture - Pseudomonas aeruginosa, multidrug resistant ( including Zerbaxa and Avycaz resistance). s/p Colistin nebs(09/30- 10/21) Per ID sputum cx from 10/18: (Serratia Marcescens) urine from 10/18 - (E. Faecium VRE) Lactobacillus 1 tab bid Prior cultures: Urine culture 04/26/17 sofie glabrata Blood culture 04/29/17 1 out of 4 bottles staph aureus Sputum culture 04/30/17 MSSA and Serratia. urine 05/07-> Serratia, treated. Urine 05/25: Citrobacter MSK: Left Intertroch Hip Fx s/p IMN 04/21/17. Vitamin D deficiency Sacral decubitus ulcer, Previously stage III, healing. Nonstageable pressure wound MTP L foot - Podiatry evaluated 10/23 and recommended against debridement because it would likely leave joint capsule exposed with rapid progression to osteomyelitis. Wound care following. Continue calcium vitamin D 250/125 one tablet 3x a day and cholecalciferol 5000 units daily. PT/OT evaluate and treat Cleanse buttock area with incontinence barrier wipes and apply Calazime barrier cream BID and PRN and leave open to air Apply skin prep to L medial foot DTI Continue to turn patient every 2 hours or PRN for comfort. Please use one UltraSorb for moisture. Please use flat sheet for repositioning on specialty surface. Continue Beneprotein one packet 3x a day prn Prophylaxis: SCDs. Heparin 5000 subcutaneous q8 hours. GI - Lansoprazole 30 mg by PEG tube daily ACCESS: PIV. Level 1 followup Consult hospitalist to assume care from 10/30/2017 Meg Mak MD Oct 29, 2017 10:50
[2017-10-29] MEDS: INSULIN DETEMIR 100 UNITS/ML VIAL SQ SCH ×2 (11:49)
--- NOTE | 2017-10-29 18:08 | HHI.PR ---
Subjective Remarks Patient remains on ventilator via trach. On Trach collar Fi02 35% Tolerates TF No new complaint Objective Vital Signs Vital Signs Date Time Temp Pulse Resp B/P (MAP) Pulse Ox O2 Delivery O2 Flow Rate FiO2 10/29/17 16:00 97.9 102 18 141/75 (97) 98 10/29/17 16:00 35 10/29/17 12:00 35 10/29/17 12:00 98.0 96 20 125/70 (88) 93 10/29/17 08:35 100 T-piece 6.00 35 10/29/17 08:00 88 10/29/17 08:00 97.7 87 20 117/66 (83) 99 10/29/17 08:00 35 10/29/17 04:00 35 10/29/17 04:00 98.8 79 20 113/68 (83) 100 10/29/17 00:00 99.0 91 20 123/67 (85) 97 10/29/17 00:00 35 10/28/17 20:54 100 T-piece 6.00 35 10/28/17 20:00 50 10/28/17 20:00 99.3 94 20 120/66 (84) 99 10/28/17 20:00 94 I/O 10/28/17 10/28/17 10/28/17 10/29/17 10/29/17 10/29/17 07:00 15:00 23:00 07:00 15:00 23:00 Intake Total 933 ml 600 ml 1000 ml Output Total 1150 ml 400 ml 650 ml Balance -217 ml 200 ml 350 ml Tube Feeding 533 ml 200 ml 500 ml Other 400 ml 400 ml 500 ml Output Urine Total 950 ml 400 ml 600 ml Stool Total 200 ml 50 ml Result Diagram: 10/29/1791110/29/17 0912 Objective Remarks GENERAL: Elderly female,NAD SKIN: Warm and dry. HEAD: Normocephalic. EYES: No scleral icterus. No injection or drainage. NECK: Supple, trachea midline. No JVD or lymphadenopathy. + trach CARDIOVASCULAR: Regular rate and rhythm without murmurs, gallops, or rubs. RESPIRATORY: Breath sounds equal bilaterally. No accessory muscle use. GASTROINTESTINAL: Abdomen soft, non-tender, nondistended. MUSCULOSKELETAL: No cyanosis, or edema. BACK: Nontender without obvious deformity. No CVA tenderness. A/P Assessment and Plan VDRF ,S/P Trach CVA Pneumonia Atelectasis Pseudomonas Tracheobronchitis, PLAN: ContinueTrach collar Bronchodilators, ICU vent bundle Pulm toilet, trach care Off abx , monitor for signs of infections Continue with tube feeds- Glucerna 1.5 with goal rate 45ml/hr GI/DVT prophylaxis Chris Rizo MD Oct 29, 2017 18:08
[2017-10-30] VITALS (9 sets, daily range): BP systolic 121–149; BP diastolic 64–75; PULSE 78–102; RESP 18–20; TEMP 98–98.8; O2SAT 92–100
[2017-10-30] MEDS: INSULIN NovoLIN REGULAR SUPPLEMENTAL SCALE SQ SCH ×4 (06:00→17:33)
[2017-10-30] MEDS: ARTIFICIAL TEARS OPTH SOLN 15 ML BTL EACH EYE SCH ×3 (06:00→20:32)
[2017-10-30] MEDS: HEPARIN SODIUM - SQ 10,000 UNITS/ML VIAL SQ SCH ×3 (06:26→20:31)
[2017-10-30] MEDS: hydrALAZINE HCL 10 MG TAB PEG SCH ×3 (06:26→20:31)
[2017-10-30] MEDS: LACTOBACILLUS ACIDOPHILUS TAB PEG SCH ×2 (08:06→20:31)
[2017-10-30] MEDS: LANSOPRAZOLE SOLUTAB 30 MG TAB NG SCH (08:06)
[2017-10-30] MEDS: ASPIRIN 325 MG TAB DOBHOFF SCH (08:06)
[2017-10-30] MEDS: DOXAZOSIN MESYLATE 1 MG TAB PEG SCH (08:06)
[2017-10-30] MEDS: CALCIUM/VITAMIN D 250 MG/125 U TAB PEG SCH ×3 (08:06→17:33)
[2017-10-30] MEDS: CHLORHEXIDINE 0.12% (ORAL KIT) 15 ML CUP MT SCH ×2 (08:07→20:00)
[2017-10-30] MEDS: SODIUM CHLORIDE 0.9% FLUSH 5 ML FLUSH IV FLUSH SCH ×2 (08:07→20:32)
[2017-10-30] MEDS: CHOLECALCIFEROL (VIT D3) 5000 UNIT CAP PEG SCH (08:09)
[2017-10-30] MEDS: INSULIN DETEMIR 100 UNITS/ML VIAL SQ SCH ×2 (13:07)
--- NOTE | 2017-10-30 13:11 | HHI.PR ---
Subjective Remarks Patient is nonverbal following a stroke, she is not interactive at this visit. Objective Vitals Vital Signs Date Time Temp Pulse Resp B/P (MAP) Pulse Ox O2 Delivery O2 Flow Rate FiO2 10/30/17 08:27 97 T-piece 6.00 50 10/30/17 08:00 50 10/30/17 08:00 98.4 78 18 121/64 (83) 97 10/30/17 08:00 102 10/30/17 06:00 50 10/30/17 04:40 92 Trach Collar 70 10/30/17 04:00 70 10/30/17 04:00 98.3 78 20 133/69 (90) 99 10/30/17 00:00 50 10/30/17 00:00 98.0 87 20 128/72 (90) 93 10/29/17 23:14 92 T-piece 6.00 50 10/29/17 22:58 97 T-piece 6.00 35 10/29/17 20:00 98.4 81 18 135/70 (91) 98 10/29/17 20:00 81 10/29/17 20:00 30 10/29/17 16:00 97.9 102 18 141/75 (97) 98 10/29/17 16:00 35 I/O 10/29/17 10/29/17 10/29/17 10/30/17 10/30/17 10/30/17 07:00 15:00 23:00 07:00 15:00 23:00 Intake Total 1000 ml 600 ml 984 ml Output Total 650 ml 400 ml 200 ml Balance 350 ml 200 ml 784 ml Tube Feeding 500 ml 400 ml 484 ml Other 500 ml 200 ml 500 ml Output Urine Total 600 ml 400 ml 100 ml Stool Total 50 ml 100 ml # Voids 2 Result Diagram: 10/29/1791110/29/17 0912 Objective Remarks GENERAL: Thin, neurologic deficits following stroke, nonverbal SKIN: Warm and dry. HEAD: Normocephalic. EYES: No scleral icterus. No injection or drainage. NECK: Supple, trachea midline. No JVD or lymphadenopathy. CARDIOVASCULAR: Regular rate and rhythm, 1/6 TEJ, gallops, or rubs. RESPIRATORY: Breath sounds equal bilaterally. No accessory muscle use. GASTROINTESTINAL: Abdomen soft, non-tender, nondistended. EXTREMITIES: No cyanosis, or edema. NEUROLOGICAL: Sleeping, right side hemiparesis A/P Problem List: (1) Acute ischemic left middle cerebral artery (MCA) stroke ICD Code: I63.512 - Cerebral infarction due to unspecified occlusion or stenosis of left middle cerebral artery Status: Acute (2) Acute respiratory failure ICD Code: J96.00 - Acute respiratory failure, unspecified whether with hypoxia or hypercapnia (3) Right hemiplegia ICD Code: G81.91 - Hemiplegia, unspecified affecting right dominant side Status: Acute (4) Sacral decubitus ulcer ICD Code: L89.159 - Pressure ulcer of sacral region, unspecified stage Status: Chronic (5) HCAP (healthcare-associated pneumonia) ICD Code: J18.9 - Pneumonia, unspecified organism Status: Resolved (6) 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 ICD Code: A49.8 - Other bacterial infections of unspecified site; Z16.24 - Resistance to multiple antibiotics Status: Acute (7) CVA (cerebral vascular accident) ICD Code: I63.9 - Cerebral infarction, unspecified Status: Chronic (8) Chronic respiratory failure ICD Code: J96.10 - Chronic respiratory failure, unspecified whether with hypoxia or hypercapnia Status: Chronic Assessment and Plan 77-year-old female who presented with DKA and hip fracture on 04/24/17 following ORIF on 04/21/17. She has a poor prognosis based on her lack of overall recovery over the last 6 months. Left MCA stroke 5.5 mm of [id number] subfalcine herniation, diagnosed 04/24. Was not a candidate for thrombolysis at that time. Persistent right-sided hemiparesis. Previously seen by neurology, signed off Previously seen by neurosurgery, signed off Hypertension / CHF Amlodipine 10 mg po daily, Doxazosin 1 mg peg daily, hydralazine 10 mg per per peg q8 hours. Clonidine 0.1 mg q6h prn Echo 10/06/17 LVSF EF = 25-30%. Chronic Tracheostomy /respiratory failure 10/22/2017 Pulmonary toilet, trach care Duo nebs as needed Large left pneumothorax Chest tube placed 05/07, discontinued 05/12/17 Currently resolved Gastroenterology Elevated transaminases now resolved Small bowel ileus now resolved Hep C antibody positive with negative genotype/viral load Hepatic steatosis, chronic Diabetes mellitus SSI Novolin R High-dose scale Levemir insulin 8u Q12 FEN PEG tube feeding with Glucerna 1.5 goal 45 cc/hr, per nutrition rec 10/20/17. Hypernatremia resolved DVT prophylaxis SCDs Problem Qualifiers (1) Acute respiratory failure: Qualified Codes: J96.00 - Acute respiratory failure, unspecified whether with hypoxia or hypercapnia (2) Sacral decubitus ulcer: Qualified Codes: L89.152 - Pressure ulcer of sacral region, stage 2 (3) Chronic respiratory failure: Qualified Codes: J96.11 - Chronic respiratory failure with hypoxia Ravin Crook MD Oct 30, 2017 13:11
--- NOTE | 2017-10-30 15:23 | HHI.PR ---
Subjective Remarks Patient remains on ventilator via trach. On Trach collar Fi02 35% Tolerates TF No new complaint Up in chair, awake, looks around Objective Vital Signs Vital Signs Date Time Temp Pulse Resp B/P (MAP) Pulse Ox O2 Delivery O2 Flow Rate FiO2 10/30/17 12:00 98.5 93 18 138/73 (94) 99 10/30/17 08:27 97 T-piece 6.00 50 10/30/17 08:00 50 10/30/17 08:00 98.4 78 18 121/64 (83) 97 10/30/17 08:00 102 10/30/17 06:00 50 10/30/17 04:40 92 Trach Collar 70 10/30/17 04:00 70 10/30/17 04:00 98.3 78 20 133/69 (90) 99 10/30/17 00:00 50 10/30/17 00:00 98.0 87 20 128/72 (90) 93 10/29/17 23:14 92 T-piece 6.00 50 10/29/17 22:58 97 T-piece 6.00 35 10/29/17 20:00 98.4 81 18 135/70 (91) 98 10/29/17 20:00 81 10/29/17 20:00 30 10/29/17 16:00 97.9 102 18 141/75 (97) 98 10/29/17 16:00 35 I/O 10/29/17 10/29/17 10/29/17 10/30/17 10/30/17 10/30/17 07:00 15:00 23:00 07:00 15:00 23:00 Intake Total 1000 ml 600 ml 984 ml Output Total 650 ml 400 ml 200 ml Balance 350 ml 200 ml 784 ml Tube Feeding 500 ml 400 ml 484 ml Other 500 ml 200 ml 500 ml Output Urine Total 600 ml 400 ml 100 ml Stool Total 50 ml 100 ml # Voids 2 Result Diagram: 10/29/1791110/29/17911 Objective Remarks GENERAL: Elderly female,NAD SKIN: Warm and dry. HEAD: Normocephalic. EYES: No scleral icterus. No injection or drainage. NECK: Supple, trachea midline. No JVD or lymphadenopathy. + trach CARDIOVASCULAR: Regular rate and rhythm without murmurs, gallops, or rubs. RESPIRATORY: Breath sounds equal bilaterally. No accessory muscle use. GASTROINTESTINAL: Abdomen soft, non-tender, nondistended. MUSCULOSKELETAL: No cyanosis, or edema. BACK: Nontender without obvious deformity. No CVA tenderness. A/P Assessment and Plan VDRF ,S/P Trach CVA Pneumonia Atelectasis Pseudomonas Tracheobronchitis, PLAN: ContinueTrach collar Bronchodilators, ICU vent bundle Pulm toilet, trach care Off abx , monitor for signs of infections Continue with tube feeds- Glucerna 1.5 with goal rate 45ml/hr GI/DVT prophylaxis Chris Rizo MD Oct 30, 2017 15:23
[2017-10-31] VITALS (10 sets, daily range): BP systolic 112–141; BP diastolic 56–71; PULSE 75–84; RESP 18–24; TEMP 97.5–99.6; O2SAT 86–99
[2017-10-31] MEDS: INSULIN NovoLIN REGULAR SUPPLEMENTAL SCALE SQ SCH ×5 (06:00→23:36)
[2017-10-31] MEDS: ARTIFICIAL TEARS OPTH SOLN 15 ML BTL EACH EYE SCH ×3 (06:20→21:39)
[2017-10-31] MEDS: hydrALAZINE HCL 10 MG TAB PEG SCH ×3 (06:21→21:40)
[2017-10-31] MEDS: HEPARIN SODIUM - SQ 10,000 UNITS/ML VIAL SQ SCH ×3 (06:21→21:41)
[2017-10-31] MEDS: LANSOPRAZOLE SOLUTAB 30 MG TAB NG SCH (08:46)
[2017-10-31] MEDS: CALCIUM/VITAMIN D 250 MG/125 U TAB PEG SCH ×3 (08:46→18:02)
[2017-10-31] MEDS: CHOLECALCIFEROL (VIT D3) 5000 UNIT CAP PEG SCH (08:46)
[2017-10-31] MEDS: DOXAZOSIN MESYLATE 1 MG TAB PEG SCH (08:46)
[2017-10-31] MEDS: ASPIRIN 325 MG TAB DOBHOFF SCH (08:46)
[2017-10-31] MEDS: LACTOBACILLUS ACIDOPHILUS TAB PEG SCH ×2 (08:46→21:38)
[2017-10-31] MEDS: SODIUM CHLORIDE 0.9% FLUSH 5 ML FLUSH IV FLUSH SCH ×2 (08:48→21:39)
[2017-10-31] MEDS: CHLORHEXIDINE 0.12% (ORAL KIT) 15 ML CUP MT SCH ×2 (08:49→21:41)
[2017-10-31] MEDS: INSULIN DETEMIR 100 UNITS/ML VIAL SQ SCH ×3 (12:02→23:36)
--- NOTE | 2017-10-31 13:58 | HHI.PR ---
Subjective Remarks 77-year-old female who is bedridden and nonverbal following recurrent stroke. Objective Vitals Vital Signs Date Time Temp Pulse Resp B/P (MAP) Pulse Ox O2 Delivery O2 Flow Rate FiO2 10/31/17 12:46 98 T-piece 7.00 50 10/31/17 12:00 98.3 80 24 141/65 (90) 99 10/31/17 10:30 86 T-piece 10.00 70 10/31/17 08:34 98 T-piece 7.00 50 10/31/17 08:00 84 10/31/17 08:00 99.6 83 20 130/71 (90) 99 10/31/17 04:00 97.5 78 18 130/67 (88) 98 10/31/17 00:00 97.5 79 18 116/60 (78) 98 10/30/17 21:57 98 T-piece 6.00 50 10/30/17 20:00 84 10/30/17 20:00 98.8 84 18 122/67 (85) 100 10/30/17 16:00 98.8 96 18 149/75 (99) 100 I/O 10/30/17 10/30/17 10/30/17 10/31/17 10/31/17 10/31/17 07:00 15:00 23:00 07:00 15:00 23:00 Intake Total 984 ml 896 ml 964 ml Output Total 200 ml 100 ml 150 ml Balance 784 ml 796 ml 814 ml Tube Feeding 484 ml 496 ml 464 ml Other 500 ml 400 ml 500 ml Output Urine Total 100 ml Stool Total 100 ml 100 ml 150 ml # Voids 2 3 4 Result Diagram: 10/29/17 0912 10/29/17 09 Objective Remarks GENERAL: Thin, neurologic deficits following stroke, nonverbal SKIN: Warm and dry. HEAD: Normocephalic. EYES: No scleral icterus. No injection or drainage. NECK: Supple, trachea midline. No JVD or lymphadenopathy. CARDIOVASCULAR: Regular rate and rhythm, 1/6 TEJ, gallops, or rubs. RESPIRATORY: Breath sounds equal bilaterally. No accessory muscle use. GASTROINTESTINAL: Abdomen soft, non-tender, nondistended. EXTREMITIES: No cyanosis, or edema. NEUROLOGICAL: Sleeping, right side hemiparesis A/P Problem List: (1) Acute ischemic left middle cerebral artery (MCA) stroke ICD Code: I63.512 - Cerebral infarction due to unspecified occlusion or stenosis of left middle cerebral artery Status: Acute (2) Acute respiratory failure ICD Code: J96.00 - Acute respiratory failure, unspecified whether with hypoxia or hypercapnia (3) Right hemiplegia ICD Code: G81.91 - Hemiplegia, unspecified affecting right dominant side Status: Acute (4) Sacral decubitus ulcer ICD Code: L89.159 - Pressure ulcer of sacral region, unspecified stage Status: Chronic (5) HCAP (healthcare-associated pneumonia) ICD Code: J18.9 - Pneumonia, unspecified organism Status: Resolved (6) 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 ICD Code: A49.8 - Other bacterial infections of unspecified site; Z16.24 - Resistance to multiple antibiotics Status: Acute (7) CVA (cerebral vascular accident) ICD Code: I63.9 - Cerebral infarction, unspecified Status: Chronic (8) Chronic respiratory failure ICD Code: J96.10 - Chronic respiratory failure, unspecified whether with hypoxia or hypercapnia Status: Chronic Assessment and Plan 77-year-old female who presented with DKA and hip fracture on 04/24/17 following ORIF on 04/21/17. She has a poor prognosis based on her lack of overall recovery over the last 6 months. Patient has no acute issues, no change in care plan. Left MCA stroke 5.5 mm of [id number] subfalcine herniation, diagnosed 04/24. Was not a candidate for thrombolysis at that time. Persistent right-sided hemiparesis. Previously seen by neurology, signed off Previously seen by neurosurgery, signed off Hypertension / CHF Amlodipine 10 mg po daily, Doxazosin 1 mg peg daily, hydralazine 10 mg per per peg q8 hours. Clonidine 0.1 mg q6h prn Echo 10/06/17 LVSF EF = 25-30%. Chronic Tracheostomy /respiratory failure 10/22/2017 Pulmonary toilet, trach care Duo nebs as needed Large left pneumothorax Chest tube placed 05/07, discontinued 05/12/17 Currently resolved Gastroenterology Elevated transaminases now resolved Small bowel ileus now resolved Hep C antibody positive with negative genotype/viral load Hepatic steatosis, chronic Diabetes mellitus SSI Novolin R High-dose scale Levemir insulin 8u Q12 FEN PEG tube feeding with Glucerna 1.5 goal 45 cc/hr, per nutrition rec 10/20/17. Hypernatremia resolved DVT prophylaxis SCDs Problem Qualifiers (1) Acute respiratory failure: Qualified Codes: J96.00 - Acute respiratory failure, unspecified whether with hypoxia or hypercapnia (2) Sacral decubitus ulcer: Qualified Codes: L89.152 - Pressure ulcer of sacral region, stage 2 (3) Chronic respiratory failure: Qualified Codes: J96.11 - Chronic respiratory failure with hypoxia Ravin Crook MD Oct 31, 2017 13:58
--- NOTE | 2017-10-31 19:41 | HHI.PR ---
Subjective Remarks Patient remains on ventilator via trach. On Trach collar Fi02 35% Tolerates TF No new complaint Objective Vital Signs Vital Signs Date Time Temp Pulse Resp B/P (MAP) Pulse Ox O2 Delivery O2 Flow Rate FiO2 10/31/17 16:00 98.7 75 24 112/56 (74) 99 10/31/17 12:46 98 T-piece 7.00 50 10/31/17 12:00 98.3 80 24 141/65 (90) 99 10/31/17 10:30 86 T-piece 10.00 70 10/31/17 08:34 98 T-piece 7.00 50 10/31/17 08:00 84 10/31/17 08:00 99.6 83 20 130/71 (90) 99 10/31/17 04:00 97.5 78 18 130/67 (88) 98 10/31/17 00:00 97.5 79 18 116/60 (78) 98 10/30/17 21:57 98 T-piece 6.00 50 10/30/17 20:00 84 10/30/17 20:00 98.8 84 18 122/67 (85) 100 I/O 10/30/17 10/30/17 10/30/17 10/31/17 10/31/17 10/31/17 07:00 15:00 23:00 07:00 15:00 23:00 Intake Total 984 ml 896 ml 964 ml 968 ml Output Total 200 ml 100 ml 150 ml 1300 ml Balance 784 ml 796 ml 814 ml -332 ml Tube Feeding 484 ml 496 ml 464 ml 468 ml Other 500 ml 400 ml 500 ml 500 ml Output Urine Total 100 ml 1100 ml Stool Total 100 ml 100 ml 150 ml 200 ml # Voids 2 3 4 2 Result Diagram: 10/29/1791110/29/17 09 Objective Remarks GENERAL: Elderly female,NAD SKIN: Warm and dry. HEAD: Normocephalic. EYES: No scleral icterus. No injection or drainage. NECK: Supple, trachea midline. No JVD or lymphadenopathy. + trach CARDIOVASCULAR: Regular rate and rhythm without murmurs, gallops, or rubs. RESPIRATORY: Breath sounds equal bilaterally. No accessory muscle use. GASTROINTESTINAL: Abdomen soft, non-tender, nondistended. MUSCULOSKELETAL: No cyanosis, or edema. BACK: Nontender without obvious deformity. No CVA tenderness. A/P Assessment and Plan VDRF ,S/P Trach CVA Pneumonia Atelectasis Pseudomonas Tracheobronchitis, PLAN: ContinueTrach collar Bronchodilators, ICU vent bundle Pulm toilet, trach care Continue with tube feeds- Glucerna 1.5 with goal rate 45ml/hr GI/DVT prophylaxis Chris Rizo MD Oct 31, 2017 19:41
[2017-11-01] VITALS (7 sets, daily range): BP systolic 121–142; BP diastolic 58–77; PULSE 75–90; RESP 18–24; TEMP 97.3–98.6; O2SAT 99
[2017-11-01] MEDS: hydrALAZINE HCL 10 MG TAB PEG SCH ×3 (05:23→23:10)
[2017-11-01] MEDS: ARTIFICIAL TEARS OPTH SOLN 15 ML BTL EACH EYE SCH ×3 (05:23→20:05)
[2017-11-01] MEDS: HEPARIN SODIUM - SQ 10,000 UNITS/ML VIAL SQ SCH ×3 (05:24→23:10)
[2017-11-01] MEDS: INSULIN NovoLIN REGULAR SUPPLEMENTAL SCALE SQ SCH ×3 (05:35→19:45)
[2017-11-01] MEDS: SODIUM CHLORIDE 0.9% FLUSH 5 ML FLUSH IV FLUSH SCH ×2 (10:00→20:05)
[2017-11-01] MEDS: DOXAZOSIN MESYLATE 1 MG TAB PEG SCH (10:15)
[2017-11-01] MEDS: CHOLECALCIFEROL (VIT D3) 5000 UNIT CAP PEG SCH (10:15)
[2017-11-01] MEDS: LACTOBACILLUS ACIDOPHILUS TAB PEG SCH ×2 (10:15→20:05)
[2017-11-01] MEDS: LANSOPRAZOLE SOLUTAB 30 MG TAB NG SCH (10:15)
[2017-11-01] MEDS: CALCIUM/VITAMIN D 250 MG/125 U TAB PEG SCH ×3 (10:16→18:22)
[2017-11-01] MEDS: ASPIRIN 325 MG TAB DOBHOFF SCH (10:16)
--- NOTE | 2017-11-01 12:08 | HHI.PR ---
Subjective Remarks Pt seen and examined. Discussed with nursing. D-dimer was ordered yesterday as patient was required higher FiO2 to maintain saturation and it resulted elevated. There were no acute events overnight. No changes in mental status. Objective Vital Signs Date Time Temp Pulse Resp B/P (MAP) Pulse Ox O2 Delivery O2 Flow Rate FiO2 11/01/17 04:00 98.1 87 22 136/69 (91) 99 11/01/17 00:00 98.3 90 22 135/72 (93) 99 10/31/17 20:44 99 T-piece 70 10/31/17 20:00 98.4 82 22 126/68 (87) 99 10/31/17 20:00 82 10/31/17 16:00 98.7 75 24 112/56 (74) 99 10/31/17 12:46 98 T-piece 7.00 50 I/O 10/31/17 10/31/17 10/31/17 11/01/17 11/01/17 11/01/17 07:00 15:00 23:00 07:00 15:00 23:00 Intake Total 964 ml 968 ml 800 ml Output Total 150 ml 1300 ml 800 ml Balance 814 ml -332 ml 0 ml Tube Feeding 464 ml 468 ml 400 ml Other 500 ml 500 ml 400 ml Output Urine Total 1100 ml 600 ml Stool Total 150 ml 200 ml 200 ml # Voids 4 2 3 Result Diagram: 10/29/17 0912 10/29/17 09 Procedures Tracheostomy 05/15/17 PEG 05/16/17 Objective Remarks GENERAL: Thin, neurologic deficits following stroke, nonverbal SKIN: Warm and dry. HEAD: Normocephalic. EYES: No scleral icterus. No injection or drainage. NECK: Supple, trachea midline. No JVD or lymphadenopathy. CARDIOVASCULAR: Regular rate and rhythm, 1/6 TEJ, gallops, or rubs. RESPIRATORY: Breath sounds equal bilaterally. No accessory muscle use. GASTROINTESTINAL: Abdomen soft, non-tender, nondistended. EXTREMITIES: No cyanosis, or edema. NEUROLOGICAL: Sleeping. A/P Assessment and Plan 77-year-old female who presented with DKA and hip fracture on 04/20/17. She underwent ORIF on 04/21/17 and on 04/24 a stroke alert was called as she was found to have right hemiparesis with left gaze. She has a poor prognosis based on her lack of overall recovery over the last 6+ months. Patient has no acute issues, no change in care plan. Elevated D-dimer Ordered yesterday for increasing FiO2 demand Elevated so will have to check CTA to r/o PE Left MCA stroke 5.5 mm of [id number] subfalcine herniation, diagnosed 04/24. Was not a candidate for thrombolysis at that time. Increasing edema seen on repeat CT 04/28 with a reduction in midline shift on another repeat on 04/30 Neurologic condition remained poor and she underwent trach 05/15/17 and PEG Persistent right-sided hemiparesis. Previously seen by neurology, signed off Previously seen by neurosurgery, signed off Continue daily ASA Hypertension / CHF Amlodipine 10 mg po daily, Doxazosin 1 mg peg daily, hydralazine 10 mg per per peg q8 hours. Clonidine 0.1 mg q6h prn Echo 10/06/17 LVSF EF = 25-30%. Chronic Tracheostomy /respiratory failure 10/22/2017 Pulmonary toilet, trach care Duo nebs as needed Pulm following, appreciate assistance Large left pneumothorax Resolved Chest tube placed 05/07, discontinued 05/12/17 Hepatitis C LFTs normalized Negative genotype/viral load Diabetes mellitus SSI Novolin R High-dose scale Levemir insulin 8u Q12 FEN PEG tube feeding with Glucerna 1.5 goal 45 cc/hr, per nutrition rec 10/20/17. DVT prophylaxis Heparin Discharge Planning Poor prognosis with no meaningful recovery but family wants aggressive care Laure Ga MD Nov 01, 2017 12:08
[2017-11-01] MEDS: INSULIN DETEMIR 100 UNITS/ML VIAL SQ SCH ×2 (13:45→23:12)
--- NOTE | 2017-11-01 15:49 | HHI.PR ---
Subjective Remarks Patient remains on ventilator via trach. On Trach collar Fi02 35% Tolerates TF No new complaint No fever Objective Vital Signs Vital Signs Date Time Temp Pulse Resp B/P (MAP) Pulse Ox O2 Delivery O2 Flow Rate FiO2 11/01/17 09:10 99 T-piece 6.00 50 11/01/17 04:00 98.1 87 22 136/69 (91) 99 11/01/17 00:00 98.3 90 22 135/72 (93) 99 10/31/17 20:44 99 T-piece 70 10/31/17 20:00 98.4 82 22 126/68 (87) 99 10/31/17 20:00 82 10/31/17 16:00 98.7 75 24 112/56 (74) 99 I/O 10/31/17 10/31/17 10/31/17 11/01/17 11/01/17 11/01/17 07:00 15:00 23:00 07:00 15:00 23:00 Intake Total 964 ml 968 ml 800 ml Output Total 150 ml 1300 ml 800 ml Balance 814 ml -332 ml 0 ml Tube Feeding 464 ml 468 ml 400 ml Other 500 ml 500 ml 400 ml Output Urine Total 1100 ml 600 ml Stool Total 150 ml 200 ml 200 ml # Voids 4 2 3 Result Diagram: 10/29/1791110/29/17 09 Objective Remarks GENERAL: Elderly female,NAD SKIN: Warm and dry. HEAD: Normocephalic. EYES: No scleral icterus. No injection or drainage. NECK: Supple, trachea midline. No JVD or lymphadenopathy. + trach CARDIOVASCULAR: Regular rate and rhythm without murmurs, gallops, or rubs. RESPIRATORY: Breath sounds equal bilaterally. No accessory muscle use. GASTROINTESTINAL: Abdomen soft, non-tender, nondistended. MUSCULOSKELETAL: No cyanosis, or edema. BACK: Nontender without obvious deformity. No CVA tenderness. A/P Assessment and Plan VDRF ,S/P Trach CVA Pneumonia Atelectasis Pseudomonas Tracheobronchitis, PLAN: ContinueTrach collar Bronchodilators, ICU vent bundle Pulm toilet, trach care Continue with tube feeds- Glucerna 1.5 with goal rate 45ml/hr GI/DVT prophylaxis Stable pulm status. Chris Rizo MD Nov 01, 2017 15:49
[2017-11-01] MEDS ORDERED: IOHEXOL 350 MG/ML 10 ML VIAL (for RAD DIAG) IVCONTRAST ONE (16:59)
--- NOTE | 2017-11-01 17:06 | RADRPT ---
EXAM DATE/TIME: 11/01/2017 16:47 [facility] COMPARISON: CHEST SINGLE AP, October 27, 2017, 4:26. INDICATIONS : Shortness of breath. IV CONTRAST: 75 cc Omnipaque 350 (iohexol) IV RADIATION DOSE: 11.78 CTDIvol (mGy) MEDICAL HISTORY : Stroke. Hypertension. Diabetes mellitus type 2. SURGICAL HISTORY : None. ENCOUNTER: Initial ACUITY: 1 day PAIN SCALE: Non-responsive LOCATION: chest TECHNIQUE: Volumetric scanning of the chest was performed using a pulmonary embolism protocol MIP images were re constructed. Using automated exposure control and adjustment of the mA and/or kV according to patien t size, radiation dose was kept as low as reasonably achievable to obtain optimal diagnostic quality images. DICOM format image data is available electronically for review and comparison. Follow-up recommendations for detected pulmonary nodules are based at a minimum on nodule size and pa tient risk factors according to Fleischner Society Guidelines. FINDINGS: Tracheostomy tube in place. There is mild subpleural interstitial prominence, consoli and in the lung bases greatest in the right lower lobe, and small bilateral pleural effusions. There is a calcified granuloma in the left lower lobe. There is no evidence of pulmonary embolism. There is adenopathy in the right paratracheal, subcarinal and hilar regions with numerous prominent lymph nodes seen. CONCLUSION: No evidence for pulmonary embolism. Please see above. Choco Mustafa MD on November 01, 2017 at 17:03 Board Certified Radiologist. This report was verified electronically.
[2017-11-02] VITALS (9 sets, daily range): BP systolic 110–130; BP diastolic 55–71; PULSE 65–87; RESP 16–20; TEMP 97.8–98.7; O2SAT 95–99
[2017-11-02] MEDS: hydrALAZINE HCL 10 MG TAB PEG SCH ×3 (05:18→21:53)
[2017-11-02] MEDS: HEPARIN SODIUM - SQ 10,000 UNITS/ML VIAL SQ SCH ×3 (05:18→21:51)
[2017-11-02] MEDS: ARTIFICIAL TEARS OPTH SOLN 15 ML BTL EACH EYE SCH ×3 (05:18→21:52)
[2017-11-02] MEDS: INSULIN NovoLIN REGULAR SUPPLEMENTAL SCALE SQ SCH ×5 (06:00→23:29)
[2017-11-02] MEDS: SODIUM CHLORIDE 0.9% FLUSH 5 ML FLUSH IV FLUSH SCH ×2 (09:00→20:28)
[2017-11-02] MEDS: LACTOBACILLUS ACIDOPHILUS TAB PEG SCH ×2 (09:28→20:28)
[2017-11-02] MEDS: ASPIRIN 325 MG TAB DOBHOFF SCH (09:28)
[2017-11-02] MEDS: CHOLECALCIFEROL (VIT D3) 5000 UNIT CAP PEG SCH (09:28)
[2017-11-02] MEDS: CALCIUM/VITAMIN D 250 MG/125 U TAB PEG SCH ×3 (09:29→17:35)
[2017-11-02] MEDS: LANSOPRAZOLE SOLUTAB 30 MG TAB NG SCH (09:29)
[2017-11-02] MEDS: DOXAZOSIN MESYLATE 1 MG TAB PEG SCH (09:29)
[2017-11-02] MEDS: INSULIN DETEMIR 100 UNITS/ML VIAL SQ SCH ×2 (12:00→23:29)
--- NOTE | 2017-11-02 12:14 | HHI.PR ---
Subjective Remarks Pt seen and examined. Discussed with nursing. There were no acute events overnight. No changes in mental status. Objective Vital Signs Date Time Temp Pulse Resp B/P (MAP) Pulse Ox O2 Delivery O2 Flow Rate FiO2 11/02/17 09:40 98 T-piece 28 11/02/17 08:00 98.6 65 16 110/55 (73) 95 11/02/17 08:00 65 11/02/17 04:00 97.8 77 18 117/62 (80) 97 11/02/17 00:44 99 T-piece 6.00 35 11/02/17 00:00 98.6 67 18 130/63 (85) 98 11/01/17 20:00 75 11/01/17 20:00 98.6 75 18 140/74 (96) 99 11/01/17 16:00 98.1 85 20 140/77 (98) 99 I/O 11/01/17 11/01/17 11/01/17 11/02/17 11/02/17 11/02/17 07:00 15:00 23:00 07:00 15:00 23:00 Intake Total 800 ml 890 ml 823 ml Output Total 800 ml 500 ml 800 ml Balance 0 ml 390 ml 23 ml Tube Feeding 400 ml 490 ml 423 ml Other 400 ml 400 ml 400 ml Output Urine Total 600 ml 500 ml 800 ml Stool Total 200 ml # Voids 3 1 Result Diagram: 10/29/1712 10/29/17911 Procedures Tracheostomy 05/15/17 PEG 05/16/17 Objective Remarks GENERAL: Thin, neurologic deficits following stroke, nonverbal SKIN: Warm and dry. HEAD: Normocephalic. EYES: No scleral icterus. No injection or drainage. NECK: Supple, trachea midline. No JVD or lymphadenopathy. CARDIOVASCULAR: Regular rate and rhythm, 1/6 TEJ, gallops, or rubs. RESPIRATORY: Breath sounds equal bilaterally. No accessory muscle use. GASTROINTESTINAL: Abdomen soft, non-tender, nondistended. EXTREMITIES: No cyanosis, or edema. NEUROLOGICAL: Sleeping. A/P Assessment and Plan 77-year-old female who presented with DKA and hip fracture on 04/20/17. She underwent ORIF on 04/21/17 and on 04/24 a stroke alert was called as she was found to have right hemiparesis with left gaze. She has a poor prognosis based on her lack of overall recovery over the last 6+ months. Patient has no acute issues, no change in care plan. Elevated D-dimer Ordered 10/31 for increasing FiO2 demand Since elevated CTA chest obtained to r/o PE which was negative Likely elevated in light of chronic illness Left MCA stroke 5.5 mm of [id number] subfalcine herniation, diagnosed 04/24. Was not a candidate for thrombolysis at that time. Increasing edema seen on repeat CT 04/28 with a reduction in midline shift on another repeat on 04/30 Neurologic condition remained poor and she underwent trach 05/15/17 and PEG Persistent right-sided hemiparesis. Previously seen by neurology, signed off Previously seen by neurosurgery, signed off Continue daily ASA Hypertension / CHF Amlodipine 10 mg po daily, Doxazosin 1 mg peg daily, hydralazine 10 mg per per peg q8 hours. Clonidine 0.1 mg q6h prn Echo 10/06/17 LVSF EF = 25-30%. Chronic Tracheostomy /respiratory failure 10/22/2017 Pulmonary toilet, trach care Duo nebs as needed Pulm following, appreciate assistance Large left pneumothorax Resolved Chest tube placed 05/07, discontinued 05/12/17 Hepatitis C LFTs normalized Negative genotype/viral load Diabetes mellitus SSI Novolin R High-dose scale Levemir insulin 8u Q12 FEN PEG tube feeding with Glucerna 1.5 goal 45 cc/hr, per nutrition rec 10/20/17. DVT prophylaxis Heparin Discharge Planning Poor prognosis with no meaningful recovery but family wants aggressive care Laure Ga MD Nov 02, 2017 12:14
--- NOTE | 2017-11-02 17:44 | HHI.PR ---
Subjective Remarks Patient remains on ventilator via trach. On Trach collar Fi02 35% Tolerates TF No fever Awake, looks around Objective Vital Signs Vital Signs Date Time Temp Pulse Resp B/P (MAP) Pulse Ox O2 Delivery O2 Flow Rate FiO2 11/02/17 16:00 98.5 80 18 125/58 (80) 98 11/02/17 12:00 98.7 76 20 129/71 (90) 96 11/02/17 09:40 98 T-piece 28 11/02/17 08:00 98.6 65 16 110/55 (73) 95 11/02/17 08:00 65 11/02/17 04:00 97.8 77 18 117/62 (80) 97 11/02/17 00:44 99 T-piece 6.00 35 11/02/17 00:00 98.6 67 18 130/63 (85) 98 11/01/17 20:00 75 11/01/17 20:00 98.6 75 18 140/74 (96) 99 I/O 11/01/17 11/01/17 11/01/17 11/02/17 11/02/17 11/02/17 07:00 15:00 23:00 07:00 15:00 23:00 Intake Total 800 ml 890 ml 823 ml 896 ml Output Total 800 ml 500 ml 800 ml 400 ml Balance 0 ml 390 ml 23 ml 496 ml Tube Feeding 400 ml 490 ml 423 ml 496 ml Other 400 ml 400 ml 400 ml 400 ml Output Urine Total 600 ml 500 ml 800 ml 400 ml Stool Total 200 ml # Voids 3 1 2 Result Diagram: 10/29/1791110/29/17911 Objective Remarks GENERAL: Elderly female,NAD SKIN: Warm and dry. HEAD: Normocephalic. EYES: No scleral icterus. No injection or drainage. NECK: Supple, trachea midline. No JVD or lymphadenopathy. + trach CARDIOVASCULAR: Regular rate and rhythm without murmurs, gallops, or rubs. RESPIRATORY: Breath sounds equal bilaterally. No accessory muscle use. GASTROINTESTINAL: Abdomen soft, non-tender, nondistended. MUSCULOSKELETAL: No cyanosis, or edema. BACK: Nontender without obvious deformity. No CVA tenderness. A/P Assessment and Plan VDRF ,S/P Trach CVA Pneumonia Atelectasis Pseudomonas Tracheobronchitis, PLAN: ContinueTrach collar Bronchodilators, ICU vent bundle Pulm toilet, trach care Continue with tube feeds- Glucerna 1.5 with goal rate 45ml/hr GI/DVT prophylaxis Stable pulm status. Chris Rizo MD Nov 02, 2017 17:44
[2017-11-03] VITALS (7 sets, daily range): BP systolic 115–144; BP diastolic 48–78; PULSE 77–90; RESP 18–24; TEMP 98.1–99.4; O2SAT 97–99
[2017-11-03] MEDS: ARTIFICIAL TEARS OPTH SOLN 15 ML BTL EACH EYE SCH ×3 (06:08→21:36)
[2017-11-03] MEDS: HEPARIN SODIUM - SQ 10,000 UNITS/ML VIAL SQ SCH ×3 (06:08→21:35)
[2017-11-03] MEDS: hydrALAZINE HCL 10 MG TAB PEG SCH ×3 (06:08→21:35)
[2017-11-03] MEDS: INSULIN NovoLIN REGULAR SUPPLEMENTAL SCALE SQ SCH ×3 (06:09→18:05)
[2017-11-03] MEDS: SODIUM CHLORIDE 0.9% FLUSH 5 ML FLUSH IV FLUSH SCH ×2 (09:00→21:00)
[2017-11-03] MEDS: LANSOPRAZOLE SOLUTAB 30 MG TAB NG SCH (09:00)
[2017-11-03] MEDS: CHOLECALCIFEROL (VIT D3) 5000 UNIT CAP PEG SCH (09:00)
[2017-11-03] MEDS: ASPIRIN 325 MG TAB DOBHOFF SCH (09:00)
[2017-11-03] MEDS: LACTOBACILLUS ACIDOPHILUS TAB PEG SCH ×2 (09:00→21:35)
[2017-11-03] MEDS: CALCIUM/VITAMIN D 250 MG/125 U TAB PEG SCH ×3 (09:00→18:05)
[2017-11-03] MEDS: DOXAZOSIN MESYLATE 1 MG TAB PEG SCH (09:00)
--- NOTE | 2017-11-03 09:16 | HHI.PR ---
Subjective Remarks no major overnight events. Patient is non verbal. Afebrile Objective Vitals Vital Signs Date Time Temp Pulse Resp B/P (MAP) Pulse Ox O2 Delivery O2 Flow Rate FiO2 11/03/17 07:49 97 T-piece 6.00 35 11/03/17 04:00 98.5 85 20 127/68 (87) 99 11/03/17 00:00 98.7 79 20 115/48 (70) 98 11/02/17 20:55 95 T-piece 6.00 35 11/02/17 20:00 87 11/02/17 20:00 98.6 87 18 128/65 (86) 97 11/02/17 16:00 98.5 80 18 125/58 (80) 98 11/02/17 12:00 98.7 76 20 129/71 (90) 96 11/02/17 09:40 98 T-piece 28 I/O 11/02/17 11/02/17 11/02/17 11/03/17 11/03/17 11/03/17 07:00 15:00 23:00 07:00 15:00 23:00 Intake Total 823 ml 896 ml 882 ml Output Total 800 ml 400 ml 500 ml Balance 23 ml 496 ml 382 ml Tube Feeding 423 ml 496 ml 522 ml Other 400 ml 400 ml 360 ml Output Urine Total 800 ml 400 ml 200 ml Stool Total 300 ml # Voids 2 [address] Angiography 11/01/17 0000 Signed Impressions: Service Date/Time: Wednesday, November 01, 2017 16:47 - CONCLUSION: No evidence for pulmonary embolism. Please see above. Choco Mustafa MD Chest X-Ray 10/27/17 0600 Signed Impressions: Service Date/Time: Friday, October 27, 2017 04:26 - CONCLUSION: 1. Mild positive fluid balance which appears slightly more prominent likely due to the lower lung volumes. 2. Mild bibasilar airspace disease, presumably atelectasis. Alejo De La Vega MD Abdomen X-Ray 10/10/17 0000 Signed Impressions: Service Date/Time: Tuesday, October 10, 2017 11:35 - CONCLUSION: No dilated bowel loops. Benja Ramsey MD Thoracentesis 08/05/17 1965 Signed Impressions: Service Date/Time: Saturday, August 05, 2017 16:08 - CONCLUSION: Uncomplicated CT-guided thoracentesis. Sage Adler MD Chest Ultrasound 08/02/17 0000 Signed Impressions: Service Date/Time: Tuesday, August 01, 2017 22:06 - CONCLUSION: 1. Moderate right pleural effusion, as above. Alejo De La Vega MD Hip and Pelvis X-Ray 07/09/17 0000 Signed Impressions: Service Date/Time: Sunday, July 09, 2017 14:04 - CONCLUSION: Anatomic alignment. Ricardo Middleton MD FACR Liver Ultrasound 06/19/17 0000 Signed Impressions: Service Date/Time: June 13:20 - CONCLUSION: 1. Mildly increased echotexture of the liver characteristic of hepatic steatosis. 2. Gallbladder sludge. Obdulio Sam MD Head CT 05/15/17 0000 Signed Impressions: Service Date/Time: May 19:59 - CONCLUSION: 1. 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 2. No bleed or new/acute infarct. Obdulio Simms MD Gall Bladder Ultrasound 05/08/17 0000 Signed Impressions: Service Date/Time: May 08:23 - CONCLUSION: Focally unremarkable appearance of the gallbladder Obdulio Chun MD Abdomen/Pelvis CT 05/07/17 0000 Signed Impressions: Service Date/Time: Sunday, May 07, 2017 13:23 - CONCLUSION: 1. Large left pneumothorax. 2. Bilateral lower lobe consolidation and bilateral moderate size pleural effusions. 3. Significant soft tissue thickening of the right lateral chest wall and left gluteus muscle. 4. Mild ascites. The findings were called to Dr. Carney. Deangelo Zamora MD Chest CT 04/30/17 0000 Signed Impressions: Service Date/Time: Sunday, April 30, 2017 09:20 - CONCLUSION: 1. Bilateral pulmonary infiltrates more pronounced within the lower lobes with tiny bilateral pleural effusions. Material seen filling the lower lobe bronchi bilaterally either related to purulent material or perhaps mucus plugging. Deangelo Wren Jr., MD Carotid Artery Ultrasound 04/24/17 0000 Signed Impressions: Service Date/Time: April 09:45 - CONCLUSION: 1. No hemodynamically significant carotid artery stenosis. Arnie Middleton MD Hip X-Ray 04/21/17 0000 Signed Impressions: Service Date/Time: Friday, April 21, 2017 11:36 - CONCLUSION: Fluoroscopic images during placement of intramedullary siomara left femur. Benja Ramsey MD Objective Remarks GENERAL: Unresponsive to verbal physical stimuli. SKIN: Warm and dry. HEAD: Normocephalic. EYES: No scleral icterus. No injection or drainage. NECK: Supple, trachea midline. No JVD or lymphadenopathy. T piece in place, no redness over trach insertion site. CARDIOVASCULAR: Regular rate and rhythm without murmurs, gallops, or rubs. RESPIRATORY: Scattered rhonchi audible on the right lung, left lung is clear to auscultation. GASTROINTESTINAL: Abdomen soft, non-tender, nondistended. MUSCULOSKELETAL: No cyanosis, or edema. BACK: Nontender without obvious deformity. No CVA tenderness. Neuro: Awake and alert, does not follow commands. Nonverbal. Medications and IVs Current Medications Medications (Trade) Dose Ordered Sig/Zeferino Route Start Time Stop Time Status Last Admin (Narcan Inj) 0.4 mg UNSCH PRN IV 04/20/17 17:15 (NS Flush) 2 ml BID IV FLUSH 04/24/17 21:00 11/02/17 20:28 (NS Flush) 2 ml UNSCH PRN IV FLUSH 04/24/17 09:30 09/17/17 08:48 (Aspirin) 325 mg DAILY DOBHOFF 04/27/17 09:00 11/02/17 09:28 (Prevacid Odt) 30 mg DAILY NG 05/08/17 09:00 11/02/17 09:29 (Tears Naturale Opth Soln) 1 drop Q8HR EACH EYE 06/12/17 07:15 11/03/17 06:08 (Nitroglycerin 2% Oint) 2 inch Q6H PRN TOPICAL 06/21/17 08:00 06/30/17 14:37 (Heparin Inj) 5,000 units Q8HR SQ 07/15/17 08:00 11/03/17 06:08 (Pill Splitter) 1 ea UNSCH PRN OTHER 09/05/17 11:00 (Apresoline) 10 mg Q8HR PEG 09/24/17 14:00 11/03/17 06:08 (Norvasc) 10 mg DAILY PEG 10/04/17 09:00 11/02/17 09:29 (Oscal-D 250-125) 250 mg TID PEG 10/03/17 13:00 11/02/17 17:35 (Vitamin D3) 5,000 units DAILY PEG 10/04/17 09:00 11/02/17 09:28 (Catapres) 0.1 mg Q6H PRN PEG 10/03/17 12:30 10/08/17 09:03 (Cardura) 1 mg DAILY PEG 10/04/17 09:00 11/02/17 09:29 (Lactinex) 1 tab Q12HR PEG 10/03/17 21:00 11/02/17 20:28 (Miralax) 17 gm DAILY PRN PEG 10/03/17 12:00 (Beneprotein Powder) 1 pack TID PRN G-TUBE 10/03/17 12:00 (Albuterol Neb) 2.5 mg Q2HR NEB PRN NEB 10/03/17 21:45 10/19/17 22:09 (D50w (Vial) Inj) 50 ml UNSCH PRN IV PUSH 10/08/17 09:45 10/28/17 17:42 (Glucagon Inj) 1 mg UNSCH PRN OTHER 10/08/17 09:45 10/14/17 00:45 (NovoLIN R SUPPLEMENTAL SCALE) 1 Q6HR SQ 10/08/17 12:00 11/03/17 06:09 (Levemir Inj) 8 units Q12H SQ 10/26/17 12:00 11/02/17 23:29 (Tylenol 650 Mg/ 20 ml Liq) 650 mg Q6H PRN PEG 10/26/17 06:45 (Roxicodone Intensol Liq) 5 mg Q6H PRN PO 10/29/17 11:00 A/P Problem List: (1) Acute ischemic left middle cerebral artery (MCA) stroke ICD Code: I63.512 - Cerebral infarction due to unspecified occlusion or stenosis of left middle cerebral artery Status: Acute (2) Acute respiratory failure ICD Code: J96.00 - Acute respiratory failure, unspecified whether with hypoxia or hypercapnia (3) Right hemiplegia ICD Code: G81.91 - Hemiplegia, unspecified affecting right dominant side Status: Acute (4) Sacral decubitus ulcer ICD Code: L89.159 - Pressure ulcer of sacral region, unspecified stage Status: Chronic (5) HCAP (healthcare-associated pneumonia) ICD Code: J18.9 - Pneumonia, unspecified organism Status: Resolved (6) 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 She underwent ORIF on 04/21/17 and on 04/24 a stroke alert was called as she was found to have right hemiparesis with left gaze. She has a poor prognosis based on her lack of overall recovery over the last 6+ months. Patient has no acute issues, no change in care plan. Elevated D-dimer Ordered 10/31 for increasing FiO2 demand Since elevated CTA chest obtained to r/o PE which was negative Likely elevated in light of chronic illness Left MCA stroke 5.5 mm of [id number] subfalcine herniation, diagnosed 04/24. Was not a candidate for thrombolysis at that time. Increasing edema seen on repeat CT 04/28 with a reduction in midline shift on another repeat on 04/30 Neurologic condition remained poor and she underwent trach 05/15/17 and PEG Persistent right-sided hemiparesis. Previously seen by neurology, signed off Previously seen by neurosurgery, signed off Continue daily ASA Hypertension / CHF Amlodipine 10 mg po daily, Doxazosin 1 mg peg daily, hydralazine 10 mg per per peg q8 hours. Clonidine 0.1 mg q6h prn Echo 10/06/17 LVSF EF = 25-30%. Chronic Tracheostomy /respiratory failure 10/22/2017 Pulmonary toilet, trach care Duo nebs as needed Pulm following, appreciate assistance Large left pneumothorax Resolved Chest tube placed 05/07, discontinued 05/12/17 Hepatitis C LFTs normalized Negative genotype/viral load Diabetes mellitus SSI Novolin R High-dose scale Levemir insulin 8u Q12 FEN PEG tube feeding with Glucerna 1.5 goal 45 cc/hr, per nutrition rec 10/20/17. DVT prophylaxis Heparin Discharge Planning Continue to monitor the medical floor. On IV antibiotics. Very poor prognosis given multidrug-resistant Pseudomonas hospital-acquired pneumonia. Appreciate palliative care efforts. Problem Qualifiers (1) Acute respiratory failure: Qualified Codes: J96.00 - Acute respiratory failure, unspecified whether with hypoxia or hypercapnia (2) Sacral decubitus ulcer: Qualified Codes: L89.152 - Pressure ulcer of sacral region, stage 2 (3) Chronic respiratory failure: Qualified Codes: J96.11 - Chronic respiratory failure with hypoxia Aleksandar Alford MD Nov 03, 2017 09:16
[2017-11-03] MEDS: INSULIN DETEMIR 100 UNITS/ML VIAL SQ SCH (12:06)
--- NOTE | 2017-11-03 19:04 | HHI.PR ---
Subjective Remarks Patient remains on ventilator via trach. On Trach collar Fi02 35% Tolerates TF No fever Objective Vital Signs Vital Signs Date Time Temp Pulse Resp B/P (MAP) Pulse Ox O2 Delivery O2 Flow Rate FiO2 11/03/17 16:00 98.3 90 24 132/78 (96) 98 11/03/17 12:00 98.4 80 24 139/74 (95) 99 11/03/17 08:00 98.1 85 22 144/73 (96) 97 11/03/17 08:00 77 11/03/17 07:49 97 T-piece 6.00 35 11/03/17 04:00 98.5 85 20 127/68 (87) 99 11/03/17 00:00 98.7 79 20 115/48 (70) 98 11/02/17 20:55 95 T-piece 6.00 35 11/02/17 20:00 87 11/02/17 20:00 98.6 87 18 128/65 (86) 97 I/O 11/02/17 11/02/17 11/02/17 11/03/17 11/03/17 11/03/17 07:00 15:00 23:00 07:00 15:00 23:00 Intake Total 823 ml 896 ml 882 ml 1002 ml Output Total 800 ml 400 ml 500 ml 300 ml Balance 23 ml 496 ml 382 ml 702 ml Tube Feeding 423 ml 496 ml 522 ml 602 ml Other 400 ml 400 ml 360 ml 400 ml Output Urine Total 800 ml 400 ml 200 ml 200 ml Stool Total 300 ml 100 ml # Voids 2 4 2 Objective Remarks GENERAL: Elderly female,NAD SKIN: Warm and dry. HEAD: Normocephalic. EYES: No scleral icterus. No injection or drainage. NECK: Supple, trachea midline. No JVD or lymphadenopathy. + trach CARDIOVASCULAR: Regular rate and rhythm without murmurs, gallops, or rubs. RESPIRATORY: Breath sounds equal bilaterally. No accessory muscle use. GASTROINTESTINAL: Abdomen soft, non-tender, nondistended. MUSCULOSKELETAL: No cyanosis, or edema. BACK: Nontender without obvious deformity. No CVA tenderness. A/P Assessment and Plan VDRF ,S/P Trach CVA Pneumonia Atelectasis Pseudomonas Tracheobronchitis, PLAN: ContinueTrach collar Bronchodilators, ICU vent bundle Pulm toilet, trach care Continue with tube feeds- Glucerna 1.5 with goal rate 45ml/hr GI/DVT prophylaxis Stable pulm status. Chris Rizo MD Nov 03, 2017 19:04
[2017-11-04] VITALS (11 sets, daily range): BP systolic 111–148; BP diastolic 54–83; PULSE 72–104; RESP 16–20; TEMP 97.3–98.8; O2SAT 97–99
[2017-11-04] MEDS: ARTIFICIAL TEARS OPTH SOLN 15 ML BTL EACH EYE SCH ×3 (06:00→21:37)
[2017-11-04] MEDS: INSULIN NovoLIN REGULAR SUPPLEMENTAL SCALE SQ SCH ×5 (06:00→17:31)
[2017-11-04] MEDS: HEPARIN SODIUM - SQ 10,000 UNITS/ML VIAL SQ SCH ×3 (06:12→21:38)
[2017-11-04] MEDS: hydrALAZINE HCL 10 MG TAB PEG SCH ×3 (06:12→21:37)
[2017-11-04] MEDS: LANSOPRAZOLE SOLUTAB 30 MG TAB NG SCH (08:06)
[2017-11-04] MEDS: CHOLECALCIFEROL (VIT D3) 5000 UNIT CAP PEG SCH (08:06)
[2017-11-04] MEDS: ASPIRIN 325 MG TAB DOBHOFF SCH (08:07)
[2017-11-04] MEDS: LACTOBACILLUS ACIDOPHILUS TAB PEG SCH ×2 (08:07→21:37)
[2017-11-04] MEDS: DOXAZOSIN MESYLATE 1 MG TAB PEG SCH (08:07)
[2017-11-04] MEDS: SODIUM CHLORIDE 0.9% FLUSH 5 ML FLUSH IV FLUSH SCH ×2 (08:09→21:00)
[2017-11-04] MEDS: CALCIUM/VITAMIN D 250 MG/125 U TAB PEG SCH ×3 (09:32→17:15)
--- NOTE | 2017-11-04 10:40 | RADRPT ---
EXAM DATE/TIME: 11/04/2017 09:57 [facility] COMPARISON: No previous studies available for comparison. INDICATIONS : Right arm swelling. MEDICAL HISTORY : Hypertension. Diabetes. Hypertension. Gait problems. Cerebral vascular accident. SURGICAL HISTORY : Left hip fracture repair. ENCOUNTER: Initial ACUITY: 1 day PAIN SCORE: Non-responsive LOCATION: Right arm. FINDINGS: There is spontaneous flow documented in the brachial, basilic, cephalic, axillary, and subclavian vei ns. The vessels are compressible and augmentation response is documented. No filling defects are se en. The flow is phasic with respiration. Direction of flow in the jugular vein is caudal. CONCLUSION: No thrombus observed. Subcutaneous edema noted. Deangelo Wren Jr., MD on November 04, 2017 at 10:36 Board Certified Radiologist. This report was verified electronically.
--- NOTE | 2017-11-04 11:19 | HHI.PR ---
Subjective Remarks non communicative but kept her eyes forcefully closed when I tried to open it desats to 88-90s when trach tube is on room air without supplemental oxygen Objective Vital Signs Date Time Temp Pulse Resp B/P (MAP) Pulse Ox O2 Delivery O2 Flow Rate FiO2 11/04/17 09:31 99 T-piece 7.00 35 11/04/17 08:00 98.8 74 16 145/64 (91) 99 11/04/17 08:00 74 11/04/17 04:00 98.4 75 16 137/66 (89) 99 11/04/17 01:15 97 T-piece 6.00 35 11/04/17 01:13 97 Trach Collar 6.00 35 11/04/17 00:00 98.8 80 16 148/73 (98) 99 11/03/17 20:00 99.4 84 18 121/63 (82) 99 11/03/17 20:00 84 11/03/17 16:00 98.3 90 24 132/78 (96) 98 11/03/17 12:00 98.4 80 24 139/74 (95) 99 I/O 11/03/17 11/03/17 11/03/17 11/04/17 11/04/17 11/04/17 07:00 15:00 23:00 07:00 15:00 23:00 Intake Total 882 ml 1002 ml 980 ml Output Total 500 ml 300 ml 300 ml Balance 382 ml 702 ml 680 ml Tube Feeding 522 ml 602 ml 580 ml Other 360 ml 400 ml 400 ml Output Urine Total 200 ml 200 ml 250 ml Stool Total 300 ml 100 ml 50 ml # Voids 4 2 2 Procedures Tracheostomy 05/15/17 PEG 05/16/17 Objective Remarks chronically ill, trach dependent pt non communicative but able to close her eyes shut against examiner's attempt to open unsure how fully aware she is or not heart rate regular, hypoechoic lungs are clear, but diffcult exam with trach sounds abdomen is distended, seems fullness at suprapubic area has female version of condom cath for urine- with canister at bedside about 100cc has rectal bag with liquid stool in it no calf asymmetry RUE bigger than left has bilateral LE somewhat contracted A/P Assessment and Plan 77-year-old female with: DKA and hip fracture on 04/20/17. s/p ORIF on 04/21/17 LEFT MCA infarct- stroke alert on 04/24 5.5 mm of [id number] subfalcine herniation, diagnosed 04/24. Not a candidate for thrombolysis at that time. Increasing edema seen on repeat CT 04/28 with a reduction in midline shift on another repeat on 04/30 trach 05/15/17 and PEG 05/16/17 Hypertension CHF. Echo on October 06, 2017. EF 25-30%. Chronic tracheostomy/respiratory failure on October 22, 2017 On trach. Still requiring supplementary oxygen. Nebs when necessary. Pulmonary following. Elevated D-dimer Ordered 10/31 for increasing FiO2 demand CT pulmonary angiogram negative for acute pulmonary embolism. Likely from chronic illness. Right upper extremity significantly bigger than the left. Ultrasound studies did not reveal any DVT. Elevated right upper extremity. History of Large left pneumothorax Resolved Chest tube placed 05/07, discontinued 05/12/17 Hepatitis C Negative genotype/viral load Diabetes mellitus SSI Novolin R High-dose scale Levemir insulin 8u Q12. FEN PEG tube feeding with Glucerna 1.5 goal 45 cc/hr, per nutrition rec 10/20/17. Abdominal distention on examination today November 04, 2017. Suspect more of suprapubic tenderness and urinary retention. Bladder scan. Place [place] if there is more than 500 cc. Check C. difficile studies since patient is also making copious liquid stools in her rectal bag. Check KUB. will need to clarify goals of care with daughter- palliative care to be reconsulted if needed- will review aggressive PT DVT prophylaxis on heparin. GI prophylaxis on lansoprazole. Discharge Planning Per clinical progress and family discussions Tucker Cheek MD Nov 04, 2017 11:19
[2017-11-04] MEDS: INSULIN DETEMIR 100 UNITS/ML VIAL SQ SCH ×2 (12:00)
--- NOTE | 2017-11-04 12:24 | RADRPT ---
EXAM DATE/TIME: 11/04/2017 11:58 [facility] COMPARISON: No previous studies available for comparison. INDICATIONS : Obstruction. MEDICAL HISTORY : Stroke. Hypertension Diabetes mellitus type II. SURGICAL HISTORY : None. ENCOUNTER: Initial ACUITY: 4 - 6 days PAIN SCORE: Non-responsive. LOCATION: Bilateral abdomen FINDINGS: Supine view of the abdomen was performed. Gaseous distention of bowel loops. Appears to be a PEG tube . No abnormal masses, calcifications, or organomegaly is seen. The osseous structures are unremarkab le. Calcified leiomyoma. Orthopedic hardware left proximal femur. CONCLUSION: Gaseous distention of bowel loops could be ileus but unchanged. Benja Ramsey MD on November 04, 2017 at 12:22 Board Certified Radiologist. This report was verified electronically.
[2017-11-04] MEDS ORDERED: DEXTROSE 50% IN WATER 50 ML VIAL(D50) IV PUSH ONE (12:30)
[2017-11-04] MEDS ORDERED: GLUCAGON 1 MG/ML VIAL OTHER PRN (12:30)
--- NOTE | 2017-11-04 18:16 | HHI.PR ---
Subjective Remarks Patient remains on ventilator via trach. On Trach collar Fi02 35% Tolerates TF No fever Objective Vital Signs Vital Signs Date Time Temp Pulse Resp B/P (MAP) Pulse Ox O2 Delivery O2 Flow Rate FiO2 11/04/17 16:00 98.0 90 18 121/55 (77) 99 11/04/17 12:00 97.3 79 16 147/54 (85) 99 11/04/17 09:31 99 T-piece 7.00 35 11/04/17 08:00 98.8 74 16 145/64 (91) 99 11/04/17 08:00 74 11/04/17 04:00 98.4 75 16 137/66 (89) 99 11/04/17 01:15 97 T-piece 6.00 35 11/04/17 01:13 97 Trach Collar 6.00 35 11/04/17 00:00 98.8 80 16 148/73 (98) 99 11/03/17 20:00 99.4 84 18 121/63 (82) 99 11/03/17 20:00 84 I/O 11/03/17 11/03/17 11/03/17 11/04/17 11/04/17 11/04/17 07:00 15:00 23:00 07:00 15:00 23:00 Intake Total 882 ml 1002 ml 980 ml 820 ml Output Total 500 ml 300 ml 300 ml 2050 ml Balance 382 ml 702 ml 680 ml -1230 ml Tube Feeding 522 ml 602 ml 580 ml 420 ml Other 360 ml 400 ml 400 ml 400 ml Output Urine Total 200 ml 200 ml 250 ml 2000 ml Stool Total 300 ml 100 ml 50 ml 50 ml # Voids 4 2 2 2 Objective Remarks GENERAL: Elderly female,NAD SKIN: Warm and dry. HEAD: Normocephalic. EYES: No scleral icterus. No injection or drainage. NECK: Supple, trachea midline. No JVD or lymphadenopathy. + trach CARDIOVASCULAR: Regular rate and rhythm without murmurs, gallops, or rubs. RESPIRATORY: Breath sounds equal bilaterally. No accessory muscle use. GASTROINTESTINAL: Abdomen soft, non-tender, nondistended. MUSCULOSKELETAL: No cyanosis, or edema. BACK: Nontender without obvious deformity. No CVA tenderness. A/P Assessment and Plan VDRF ,S/P Trach CVA Pneumonia Atelectasis Pseudomonas Tracheobronchitis, PLAN: ContinueTrach collar Bronchodilators, Pulm toilet, trach care Continue with tube feeds- Glucerna 1.5 with goal rate 45ml/hr GI/DVT prophylaxis Stable pulm status. Chris Rizo MD Nov 04, 2017 18:16
[2017-11-04 19:37] LABS: BACTERIA, URINE RARE /hpf; BILIRUBIN, URINE NEG (NEG); BLOOD, URINE NEG (NEG); GLUCOSE,URINE NEG (NEG); HYALINE CAST, URINE 3 /lpf (RARE); KETONE, URINE NEG (NEG); NITRITE,URINE NEG (NEG); URINE COLOR YELLOW (YELLW/STRAW); URINE LEUKOCYTE ESTERASE LARGE (NEG)
[2017-11-05] VITALS (9 sets, daily range): BP systolic 121–143; BP diastolic 56–73; PULSE 78–89; RESP 18–20; TEMP 98.1–99.2; O2SAT 94–99
[2017-11-05] MEDS: INSULIN NovoLIN REGULAR SUPPLEMENTAL SCALE SQ SCH ×4 (00:10→18:30)
[2017-11-05] MEDS: hydrALAZINE HCL 10 MG TAB PEG SCH ×3 (05:55→21:03)
[2017-11-05] MEDS: ARTIFICIAL TEARS OPTH SOLN 15 ML BTL EACH EYE SCH ×3 (05:55→21:03)
[2017-11-05] MEDS: HEPARIN SODIUM - SQ 10,000 UNITS/ML VIAL SQ SCH ×3 (05:56→21:03)
[2017-11-05] MEDS: LACTOBACILLUS ACIDOPHILUS TAB PEG SCH ×2 (08:42→19:38)
[2017-11-05] MEDS: LANSOPRAZOLE SOLUTAB 30 MG TAB NG SCH (08:42)
[2017-11-05] MEDS: CHOLECALCIFEROL (VIT D3) 5000 UNIT CAP PEG SCH (08:42)
[2017-11-05] MEDS: ASPIRIN 325 MG TAB DOBHOFF SCH (08:42)
[2017-11-05] MEDS: CALCIUM/VITAMIN D 250 MG/125 U TAB PEG SCH ×3 (08:42→18:12)
[2017-11-05] MEDS: SODIUM CHLORIDE 0.9% FLUSH 5 ML FLUSH IV FLUSH SCH ×2 (08:43→19:38)
[2017-11-05] MEDS: DOXAZOSIN MESYLATE 1 MG TAB PEG SCH (08:45)
--- NOTE | 2017-11-05 11:29 | HHI.PR ---
Subjective Remarks non communicative but kept her eyes forcefully closed when I tried to open it moser in place yesterday's bladder scan showed >1000cc thus moser was placed Objective Vital Signs Date Time Temp Pulse Resp B/P (MAP) Pulse Ox O2 Delivery O2 Flow Rate FiO2 11/05/17 08:45 97 Trach Collar 6.00 35 11/05/17 08:15 99.2 78 20 132/64 (86) 97 11/05/17 08:00 78 11/05/17 04:00 98.3 78 20 122/63 (82) 95 11/05/17 00:00 98.3 85 20 127/64 (85) 99 11/04/17 21:40 98.4 104 20 111/55 (73) 97 11/04/17 21:08 99 T-piece 35 11/04/17 20:00 75 11/04/17 16:00 98.0 90 18 121/55 (77) 99 11/04/17 12:00 97.3 79 16 147/54 (85) 99 I/O 11/04/17 11/04/17 11/04/17 11/05/17 11/05/17 11/05/17 07:00 15:00 23:00 07:00 15:00 23:00 Intake Total 980 ml 820 ml 1009 ml Output Total 300 ml 2050 ml 1050 ml Balance 680 ml -1230 ml -41 ml Tube Feeding 580 ml 420 ml 509 ml Other 400 ml 400 ml 500 ml Output Urine Total 250 ml 2000 ml 1000 ml Stool Total 50 ml 50 ml 50 ml # Voids 2 2 Procedures Tracheostomy 05/15/17 PEG 05/16/17 Objective Remarks chronically ill, trach dependent pt non communicative but able to close her eyes shut against examiner's attempt to open unsure how fully aware she is or not heart rate regular, hypoechoic lungs are clear, but diffcult exam with trach sounds abdomen distension is improved has moser cath in palce has rectal bag with liquid stool in it no calf asymmetry RUE bigger than left has bilateral LE somewhat contracted A/P Assessment and Plan 77-year-old female [id number] female with: DKA and hip fracture on 04/20/17. s/p ORIF on 04/21/17 LEFT MCA infarct- stroke alert on 04/24 5.5 mm of [id number] subfalcine herniation, diagnosed 04/24. Not a candidate for thrombolysis at that time. Increasing edema seen on repeat CT 04/28 with a reduction in midline shift on another repeat on 04/30 trach 05/15/17 and PEG 05/16/17 Hypertension CHF. Echo on October 06, 2017. EF 25-30%. Chronic tracheostomy/respiratory failure on October 22, 2017 On trach. Still requiring supplementary oxygen. Nebs when necessary. Pulmonary following. Elevated D-dimer Ordered 10/31 for increasing FiO2 demand CT pulmonary angiogram negative for acute pulmonary embolism. Likely from chronic illness. Right upper extremity significantly bigger than the left. Ultrasound studies did not reveal any DVT. Elevated right upper extremity. History of Large left pneumothorax Resolved Chest tube placed 05/07, discontinued 05/12/17 Hepatitis C Negative genotype/viral load Diabetes mellitus SSI Novolin R High-dose scale Levemir insulin 8u Q12. FEN PEG tube feeding with Glucerna 1.5 goal 45 cc/hr, per nutrition rec 10/20/17. Abdominal distention on examination today November 04, 2017. Bladder scan yesterday revealed poor than 1000 cc. Moser catheter was placed. UA was sent which showed significant leukocyte esterase though not much of WBC. We'll await on culture results before treating. No fever. C. difficile studies were negative. DIANNA personally reviewed. Ileus. Start Reglan. will need to clarify goals of care with daughter-will reconsult palliative care for help aggressive PT Tucker Cheek MD Nov 05, 2017 11:29
[2017-11-05] MEDS: INSULIN DETEMIR 100 UNITS/ML VIAL SQ SCH ×2 (12:00)
--- NOTE | 2017-11-05 19:12 | HHI.PR ---
Subjective Remarks Patient remains on ventilator via trach. On Trach collar Fi02 35% Tolerates TF No fever Had Leavitt placed Objective Vital Signs Vital Signs Date Time Temp Pulse Resp B/P (MAP) Pulse Ox O2 Delivery O2 Flow Rate FiO2 11/05/17 16:00 98.1 89 20 122/60 (80) 97 11/05/17 12:00 98.2 80 20 121/56 (77) 94 11/05/17 08:45 97 Trach Collar 6.00 35 11/05/17 08:15 99.2 78 20 132/64 (86) 97 11/05/17 08:00 78 11/05/17 04:00 98.3 78 20 122/63 (82) 95 11/05/17 00:00 98.3 85 20 127/64 (85) 99 11/04/17 21:40 98.4 104 20 111/55 (73) 97 11/04/17 21:08 99 T-piece 35 11/04/17 20:00 75 I/O 11/04/17 11/04/17 11/04/17 11/05/17 11/05/17 11/05/17 07:00 15:00 23:00 07:00 15:00 23:00 Intake Total 980 ml 820 ml 1009 ml 943 ml Output Total 300 ml 2050 ml 1050 ml 850 ml Balance 680 ml -1230 ml -41 ml 93 ml Tube Feeding 580 ml 420 ml 509 ml 543 ml Other 400 ml 400 ml 500 ml 400 ml Output Urine Total 250 ml 2000 ml 1000 ml 800 ml Stool Total 50 ml 50 ml 50 ml 50 ml # Voids 2 2 Objective Remarks GENERAL: Elderly female,NAD SKIN: Warm and dry. HEAD: Normocephalic. EYES: No scleral icterus. No injection or drainage. NECK: Supple, trachea midline. No JVD or lymphadenopathy. + trach CARDIOVASCULAR: Regular rate and rhythm without murmurs, gallops, or rubs. RESPIRATORY: Breath sounds equal bilaterally. No accessory muscle use. GASTROINTESTINAL: Abdomen soft, non-tender, nondistended. MUSCULOSKELETAL: No cyanosis, or edema. BACK: Nontender without obvious deformity. No CVA tenderness. A/P Assessment and Plan VDRF ,S/P Trach CVA Pneumonia Atelectasis Pseudomonas Tracheobronchitis, PLAN: ContinueTrach collar Bronchodilators, Pulm toilet, trach care Continue with tube feeds- Glucerna 1.5 with goal rate 45ml/hr GI/DVT prophylaxis DW RN at Chris Rizo MD Nov 05, 2017 19:12
[2017-11-05] MEDS: METOCLOPRAMIDE HCL 10 MG/2 ML VIAL IV PUSH SCH (21:03)
[2017-11-06] VITALS (8 sets, daily range): BP systolic 103–143; BP diastolic 60–77; PULSE 75–80; RESP 14–20; TEMP 98.1–99.6; O2SAT 95–99
[2017-11-06] MEDS: INSULIN NovoLIN REGULAR SUPPLEMENTAL SCALE SQ SCH ×4 (00:30→16:47)
[2017-11-06] MEDS: INSULIN DETEMIR 100 UNITS/ML VIAL SQ SCH ×2 (00:44→12:00)
[2017-11-06] MEDS: ARTIFICIAL TEARS OPTH SOLN 15 ML BTL EACH EYE SCH ×3 (06:00→22:00)
[2017-11-06] MEDS: METOCLOPRAMIDE HCL 10 MG/2 ML VIAL IV PUSH SCH ×3 (06:07→22:30)
[2017-11-06] MEDS: hydrALAZINE HCL 10 MG TAB PEG SCH ×3 (06:08→22:29)
[2017-11-06] MEDS: HEPARIN SODIUM - SQ 10,000 UNITS/ML VIAL SQ SCH ×3 (06:08→22:30)
[2017-11-06] MEDS: SODIUM CHLORIDE 0.9% FLUSH 5 ML FLUSH IV FLUSH SCH ×2 (09:00→21:00)
--- NOTE | 2017-11-06 09:52 | HHI.PR ---
Subjective Remarks non communicative kept her eyes closed no acute issues overnight per nursing Objective Vital Signs Date Time Temp Pulse Resp B/P (MAP) Pulse Ox O2 Delivery O2 Flow Rate FiO2 11/06/17 04:00 98.8 80 18 136/63 (87) 99 11/06/17 00:00 98.8 78 14 103/60 (74) 97 11/05/17 20:09 98 T-piece 28 11/05/17 20:00 80 11/05/17 20:00 98.4 80 18 143/73 (96) 97 11/05/17 16:00 98.1 89 20 122/60 (80) 97 11/05/17 12:00 98.2 80 20 121/56 (77) 94 I/O 11/05/17 11/05/17 11/05/17 11/06/17 11/06/17 11/06/17 07:00 15:00 23:00 07:00 15:00 23:00 Intake Total 1009 ml 943 ml 546 ml Output Total 1050 ml 850 ml 850 ml Balance -41 ml 93 ml -304 ml Intake Oral 0 ml IV Total 0 ml Tube Feeding 509 ml 543 ml 546 ml Other 500 ml 400 ml Output Urine Total 1000 ml 800 ml 750 ml Stool Total 50 ml 50 ml 100 ml Procedures Tracheostomy 05/15/17 PEG 05/16/17 Objective Remarks chronically ill, trach dependent pt non communicative but able to close her eyes shut against examiner's attempt to open unsure how fully aware she is or not heart rate regular, hypoechoic lungs are clear, but diffcult exam with trach sounds abdomen distension is improved has moser cath in palce- inserted 11/04/17 has rectal bag with liquid stool in it no calf asymmetry RUE bigger than left has bilateral LE somewhat contracted A/P Assessment and Plan 77-year-old female [id number] female with: DKA and hip fracture on 04/20/17. s/p ORIF on 04/21/17 LEFT MCA infarct- stroke alert on 04/24 5.5 mm of [id number] subfalcine herniation, diagnosed 04/24. Not a candidate for thrombolysis at that time. Increasing edema seen on repeat CT 04/28 with a reduction in midline shift on another repeat on 04/30 trach 05/15/17 and PEG 05/16/17 Hypertension CHF. Echo on October 06, 2017. EF 25-30%. Chronic tracheostomy/respiratory failure on October 22, 2017 On trach. Still requiring supplementary oxygen. Nebs when necessary. Pulmonary following. Elevated D-dimer Ordered 10/31 for increasing FiO2 demand CT pulmonary angiogram negative for acute pulmonary embolism. Likely from chronic illness. Right upper extremity significantly bigger than the left. Ultrasound studies did not reveal any DVT. Elevated right upper extremity. History of Large left pneumothorax Resolved Chest tube placed 05/07, discontinued 05/12/17 Hepatitis C Negative genotype/viral load Diabetes mellitus SSI Novolin R High-dose scale Levemir insulin 8u Q12. FEN PEG tube feeding with Glucerna 1.5 goal 45 cc/hr, per nutrition rec 10/20/17. Abdominal distention on examination today November 04, 2017. Bladder scan 11/04/17 revealed more than 1000 cc. Moser catheter was placed. UA was sent which showed significant leukocyte esterase though not much of WBC. We'll await on culture results before treating. Immature growth. No fever. C. difficile studies were negative. DIANNA personally reviewed. Ileus. Start Reglan. will need to clarify goals of care with daughter-will follow palliative care consult today aggressive PT Discharge Planning Per clinical progress and family discussions Tucker Cheek MD Nov 06, 2017 09:52
[2017-11-06] MEDS: DOXAZOSIN MESYLATE 1 MG TAB PEG SCH (10:05)
[2017-11-06] MEDS: LANSOPRAZOLE SOLUTAB 30 MG TAB NG SCH (10:05)
[2017-11-06] MEDS: CALCIUM/VITAMIN D 250 MG/125 U TAB PEG SCH ×3 (10:06→16:46)
[2017-11-06] MEDS: LACTOBACILLUS ACIDOPHILUS TAB PEG SCH ×2 (10:06→22:29)
[2017-11-06] MEDS: CHOLECALCIFEROL (VIT D3) 5000 UNIT CAP PEG SCH (10:06)
[2017-11-06] MEDS: ASPIRIN 325 MG TAB DOBHOFF SCH (12:40)
--- NOTE | 2017-11-06 18:09 | HHI.HCPN ---
Reason for visit a. To assist with evaluation and management of symptoms including: Debility and pain. b. To assist medical decision maker(s) with: better understanding of current medical conditions; weighing benefits/burdens of medical treatment options; making medical treatment decisions. . Subjective/Interval History Mrs. Hein is a 77-year-old female with a past medical history of hypertension, diabetes mellitus and CVA who presented to the ED on 04/20/17 via EMS for evaluation of after a fall. Patient underwent Left hip reduction and intramedullary nail fixation on 04/21/17. Clinical course complicated by large left MCA infarct with diffuse edema throughout the left MCA distribution. Medical course further complicated by prolonged hospitalization, tracheostomy status post prolonged ventilation support, MDR Pseudomonas pneumonia -multidrug- resistant , deconditioning. Palliative care consulted for further clarifications of goals of care given overall poor prognosis. Patient seen in her room, currently on T collar, 5L 28% FiO2. Eyes closed, not opening eyes to verbal or tactile stimuli. Not following any commands. Purposeful movement noted to left arm, patient covering herself with a small blanket. Squeezes my hand but not to command. She is afebrile, stable hemodynamically. Most recent laboratory 10/29 revealing WBC of 10.3, Hgb is stable at 8.1, platelet count 317. BUN/creatinine 31/0.50. UA 11/04/17 negative for nitrite, large leukocyte. Patient with chronic indwelling Leavitt catheter. Urine culture 11/04 revealing aerococcus urinae. Abdominal x-ray 11/04 revealing gaseous distention of bowel loops which could represent ileus. Patient appears to be tolerating tube feedings, currently 45 mL an hour. Upper extremity ultrasound 11/04 negative for DVT. CTA of the chest 3 negative for PE. Telephone call to patient's daughter Trice Salvador. No answer, left message on voicemail. Palliative care as well as additional medical staff has had several conversations and follow-ups with patient's daughter regarding her clinical condition and overall poor prognosis. Goals of therapy have been established for the past few months, daughter electing for aggressive management to include full code. Hospice philosophy and benefits have been discussed at length with daughter given overall poor prognosis for any meaningful recovery or prolonged survival. Daughter has declined hospice in several occasions in favor of aggressive management. Difficult disposition as patient requires long-term placement, [facility]. Case discussed with Dr. Cheek and bedside RN. . Family/friend interactions See interval note. . Advance Directives Living Will: Never completed Health Care Surrogate: Never completed Durable Power of Risk Officer: Never completed Advance Directive Specifics Health Care Surrogate(s): No advance directives completed. As per [place] statute, healthcare proxy decision making falls to patient's only daughter Norma Salvador. . Documented care wishes: No living will completed. . Significant change in goals: Goals of therapy remain unchanged. . Objective Vital Signs Date Time Temp Pulse Resp B/P (MAP) Pulse Ox O2 Delivery O2 Flow Rate FiO2 11/06/17 10:23 99 Trach Collar 6.00 28 11/06/17 04:00 98.8 80 18 136/63 (87) 99 11/06/17 00:00 98.8 78 14 103/60 (74) 97 11/05/17 20:09 98 T-piece 28 11/05/17 20:00 80 11/05/17 20:00 98.4 80 18 143/73 (96) 97 Intake & Output 11/06/17 11/06/17 07:00 19:00 Intake Total 546 ml Output Total 850 ml Balance -304 ml Intake Oral 0 ml IV Total 0 ml Tube Feeding 546 ml Output Urine Total 750 ml Stool Total 100 ml Physical Exam CONSTITUTIONAL/GENERAL: This is an elderly , ill looking female resting in bed in no acute distress. Bilateral temporal wasting noted. TUBES/LINES/DRAINS: PIV's. Tracheostomy on T piece, SCD, PEG tube. Left soft wrist restraint. SKIN: Pale. No jaundice, rashes, or lesions. Ecchymoses on upper extremities. Skin temperature appropriate. Not diaphoretic. NECK: Trachea midline. Supple. Tracheostomy in place. T-piece. CARDIOVASCULAR: Regular rate and rhythm. Peripheral pulses symmetric. RESPIRATORY/CHEST: Symmetric, tracheostomy. Clear, diminished breath sounds GASTROINTESTINAL: Abdomen soft, round, distended. Bowel sounds present. PEG tube in place. GENITOURINARY: Without palpable bladder distension. MUSCULOSKELETAL: Extremities without clubbing, cyanosis. Muscle wasting to all 4 extremities. NEUROLOGICAL: Eyes closed. Not opening to verbal or tactile stimuli. PSYCHIATRIC: Unable to evaluate secondary to clinical condition. . Diagnostic Tests Laboratory Laboratory Tests Test 11/04/17 17:00 Urine Color YELLOW (YELLW/STRAW) Urine Turbidity HAZY (CLEAR) Urine pH 7.0 (5.0-8.5) Urine Specific [place] 1.012 (1.002-1.035) Urine Protein TRACE mg/dL (NEG-TRACE) Urine Glucose (UA) NEG mg/dL (NEG) Urine Ketones NEG mg/dL (NEG) Urine Occult Blood NEG (NEG) Urine Nitrite NEG (NEG) Urine Bilirubin NEG (NEG) Urine Urobilinogen LESS THAN 2.0 MG/DL (LESS Urine Leukocyte Esterase LARGE (NEG) Urine RBC 1 /hpf (0-3) Urine WBC 26 /hpf (0-5) Urine Bacteria RARE /hpf (NONE) Urine Hyaline Casts 3 /lpf (RARE) Microscopic Urinalysis Comment CATH-CULTURE IND Stool C. difficile Toxin (PCR) NEGATIVE (NEGATIVE) Stl C. difficile Toxin Epiderm 027 PRESUMPTIVE NEGATIVE Microbiology Microbiology Date/Time Source Procedure Growth Status 11/04/17 17:00 Urine Catheterized Urine Urine Culture - Final Aerococcus Urinae Complete Procedures * 08/05/17 -right thoracentesis * 05/16/17 -PEG tube placement * 05/15/17 -tracheostomy placement * 05/08/17 -left-sided chest tube/pigtail * 04/30/17 -endotracheal intubation * 04/21/17 -Left hip reduction and intramedullary nail fixation . 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 (2) Pain 0-10 Scale: Unable to quantify Comment: Secondary to surgical intervention, bedbound status, prolonged hospitalization. (3) Debility 0-10 Scale: Unable to quantify Comment: Progressive. Pertinent Non-Medical Issues Psychosocial: Patient is originally from [place]. Residing in [place] up until 2013 she moved to [place] to live with only daughter Trice. Patient is a , in 2006. Spiritual: No catholic affiliation. Legal: No advance directives completed. Ethical issues impacting care: Patient unable to participating in medical decision-making secondary to clinical condition. Patient's daughter acting as healthcare proxy decision maker. . Important Contacts Daughter Norma Salvador . . Prognosis Mrs. Hein needs a 76-year-old female with a past medical history of hypertension, diabetes mellitus and prior CVA. Presented with left hip fracture , underwent ORIF. Clinical course complicated by large left MCA infarct with edema. Overall prognosis is poor for a meaningful neurological recovery or long -term survival given acute stroke, chronic ongoing comorbidities and advanced age. Patient appears hospice appropriate should family elect comfort-directed care. . Code Status: Full Code Plan * CODE STATUS: FULL CODE. * HEALTHCARE DECISION-MAKING: Patient not capacitated for medical decision- making given severe stroke, not expected to regain capacity. No advance directives completed, patient is . As per [place] statute, healthcare proxy decision-making falls to patient's only daughter Trice Salvador. * GOALS OF CARE: Goals of care established. Daughter Trice Salvador acting as healthcare proxy decision maker elected aggressive management to include FULL code. * 11/06/17 -Telephone call to patient's daughter Trice Salvador. No answer, left message in voicemail. Overall poor prognosis has been previously discussed at length on multiple occasions with patient's daughters by palliative care and other medical specialties. Hospice philosophy and benefits have been previously discussed at length but declined by daughter. Daughter not receptive to palliative care follow-ups. Difficult disposition as patient requires long-term placement, [facility] following. * SYMPTOMS: * = Shortness of breath, multifactorial. Secondary to altered mental status/CVA , pneumonia, lethargy. Now trached and on T piece. Sputum cultures with Pseudomonas Aeruginosa -multidrug-resistant. = Debility, progressive. Expected to worsen given acute stroke, multiple ongoing comorbidities, acute complications, advanced age and prolonged hospitalization. * Case discussed with Dr. Cheek. * Palliative care contact information has been provided to patient's daughter. * Palliative care will continue to follow-up as needed for further clarifications of goals of care as patient's clinical condition continues to evolve. Goals of therapy are established at this time. . Time Spent Total Floor Time (mins): 23 (Total time to include review of medical records, physical exam, telephone call to daughter, case discussion with attending. ) >50% Counseling/Coord of Care: Yes Attestation To help prompt me to consider important information that might be impacting today's encounter and assessment, information from prior notes written by myself or my colleagues may have been "brought forward" into today's note. My signature on this note, however, is an attestation that I personally performed the exam, history, and/or decision-making noted today, and, unless otherwise indicated, the interactions with patient, family, and staff as well as the review of records all occurred today. I also attest that the listed assessment and stated plan reflect my best clinical judgment today based on the combination of historical information, prior notes, and today's exam/ interactions. When time spent is documented, it refers only to time spent today by the signer, or if indicated, combined time spent today by collaborating physician/nurse practitioner. Ashly Steven Nov 06, 2017 18:09
--- NOTE | 2017-11-06 18:15 | HHI.PR ---
Subjective Remarks Patient remains on ventilator via trach. On Trach collar Fi02 35% Tolerates TF No fever Objective Vital Signs Vital Signs Date Time Temp Pulse Resp B/P (MAP) Pulse Ox O2 Delivery O2 Flow Rate FiO2 11/06/17 10:23 99 Trach Collar 6.00 28 11/06/17 04:00 98.8 80 18 136/63 (87) 99 11/06/17 00:00 98.8 78 14 103/60 (74) 97 11/05/17 20:09 98 T-piece 28 11/05/17 20:00 80 11/05/17 20:00 98.4 80 18 143/73 (96) 97 I/O 11/05/17 11/05/17 11/05/17 11/06/17 11/06/17 11/06/17 07:00 15:00 23:00 07:00 15:00 23:00 Intake Total 1009 ml 943 ml 546 ml Output Total 1050 ml 850 ml 850 ml Balance -41 ml 93 ml -304 ml Intake Oral 0 ml IV Total 0 ml Tube Feeding 509 ml 543 ml 546 ml Other 500 ml 400 ml Output Urine Total 1000 ml 800 ml 750 ml Stool Total 50 ml 50 ml 100 ml Objective Remarks GENERAL: Elderly female,NAD SKIN: Warm and dry. HEAD: Normocephalic. EYES: No scleral icterus. No injection or drainage. NECK: Supple, trachea midline. No JVD or lymphadenopathy. + trach CARDIOVASCULAR: Regular rate and rhythm without murmurs, gallops, or rubs. RESPIRATORY: Breath sounds equal bilaterally. No accessory muscle use. GASTROINTESTINAL: Abdomen soft, non-tender, nondistended. MUSCULOSKELETAL: No cyanosis, or edema. BACK: Nontender without obvious deformity. No CVA tenderness. A/P Assessment and Plan VDRF ,S/P Trach CVA Pneumonia Atelectasis Pseudomonas Tracheobronchitis, PLAN: ContinueTrach collar Bronchodilators, Pulm toilet, trach care Continue with tube feeds- Glucerna 1.5 with goal rate 45ml/hr GI/DVT prophylaxis Chris Rizo MD Nov 06, 2017 18:15
[2017-11-07] VITALS (8 sets, daily range): BP systolic 122–157; BP diastolic 54–82; PULSE 64–86; RESP 16–18; TEMP 97.8–99.8; O2SAT 95–99
[2017-11-07] MEDS: INSULIN NovoLIN REGULAR SUPPLEMENTAL SCALE SQ SCH ×4 (00:10→18:24)
[2017-11-07] MEDS: HEPARIN SODIUM - SQ 10,000 UNITS/ML VIAL SQ SCH ×3 (05:41→19:37)
[2017-11-07] MEDS: hydrALAZINE HCL 10 MG TAB PEG SCH ×3 (05:41→19:36)
[2017-11-07] MEDS: METOCLOPRAMIDE HCL 10 MG/2 ML VIAL IV PUSH SCH ×2 (05:41→12:46)
[2017-11-07] MEDS: ARTIFICIAL TEARS OPTH SOLN 15 ML BTL EACH EYE SCH ×3 (06:00→19:39)
[2017-11-07] MEDS: SODIUM CHLORIDE 0.9% FLUSH 5 ML FLUSH IV FLUSH SCH ×2 (08:38→19:41)
[2017-11-07] MEDS: ASPIRIN 325 MG TAB DOBHOFF SCH (08:38)
[2017-11-07] MEDS: LANSOPRAZOLE SOLUTAB 30 MG TAB NG SCH (08:38)
[2017-11-07] MEDS: LACTOBACILLUS ACIDOPHILUS TAB PEG SCH ×2 (08:39→19:36)
[2017-11-07] MEDS: CALCIUM/VITAMIN D 250 MG/125 U TAB PEG SCH ×3 (08:39→18:24)
[2017-11-07] MEDS: DOXAZOSIN MESYLATE 1 MG TAB PEG SCH (08:39)
[2017-11-07] MEDS: CHOLECALCIFEROL (VIT D3) 5000 UNIT CAP PEG SCH (08:39)
[2017-11-07] MEDS: INSULIN DETEMIR 100 UNITS/ML VIAL SQ SCH ×2 (12:32)
[2017-11-07] MEDS: AMOXICIL-CLAV 600 MG/5 ML LIQ 125 ML BTL PO SCH (12:32)
--- NOTE | 2017-11-07 13:04 | HHI.PR ---
Subjective Remarks No overnight events, afebrile, discussed with nursing. Eyes are open, does not follow any commands, good handgrip but questionable if Volitional. Objective Vitals Vital Signs Date Time Temp Pulse Resp B/P (MAP) Pulse Ox O2 Delivery O2 Flow Rate FiO2 11/07/17 12:00 98.1 85 17 128/69 (88) 95 11/07/17 09:57 96 T-piece 5.00 28 11/07/17 08:00 98.4 76 18 157/79 (105) 99 11/07/17 08:00 75 11/07/17 04:00 71 16 138/66 (90) 98 11/07/17 02:00 98.0 64 16 122/54 (76) 98 11/06/17 20:58 98 T-piece 28 11/06/17 20:00 80 11/06/17 20:00 98.1 80 20 136/68 (90) 97 11/06/17 16:00 99.6 75 16 131/67 (88) 99 I/O 11/06/17 11/06/17 11/06/17 11/07/17 11/07/17 11/07/17 07:00 15:00 23:00 07:00 15:00 23:00 Intake Total 546 ml 800 ml 797 ml Output Total 850 ml 700 ml 1150 ml Balance -304 ml 100 ml -353 ml Intake Oral 0 ml IV Total 0 ml Tube Feeding 546 ml 400 ml 397 ml Other 400 ml 400 ml Output Urine Total 750 ml 600 ml 1000 ml Stool Total 100 ml 100 ml 150 ml Imaging Last Impressions Upper Extremity Ultrasound 11/04/17 0000 Signed Impressions: Service Date/Time: Saturday, November 04, 2017 09:57 - CONCLUSION: No thrombus observed. Subcutaneous edema noted. Deangelo rWen Jr., MD Abdomen X-Ray 11/04/17 0000 Signed Impressions: Service Date/Time: Saturday, November 04, 2017 11:58 - CONCLUSION: Gaseous distention of bowel loops could be ileus but unchanged. Benja Ramsey MD CT Angiography 11/01/17 0000 Signed Impressions: Service Date/Time: Wednesday, November 01, 2017 16:47 - CONCLUSION: No evidence for pulmonary embolism. Please see above. Choco Mustafa MD Chest X-Ray 10/27/17 0600 Signed Impressions: Service Date/Time: Friday, October 27, 2017 04:26 - CONCLUSION: 1. Mild positive fluid balance which appears slightly more prominent likely due to the lower lung volumes. 2. Mild bibasilar airspace disease, presumably atelectasis. Alejo De La Vega MD Thoracentesis 08/05/17 1535 Signed Impressions: Service Date/Time: Saturday, August 05, 2017 16:08 - CONCLUSION: Uncomplicated CT-guided thoracentesis. Sage Adler MD Chest Ultrasound 08/02/17 0000 Signed Impressions: Service Date/Time: Tuesday, August 01, 2017 22:06 - CONCLUSION: 1. Moderate right pleural effusion, as above. Alejo De La Vega MD Hip and Pelvis X-Ray 07/09/17 0000 Signed Impressions: Service Date/Time: Sunday, July 09, 2017 14:04 - CONCLUSION: Anatomic alignment. Ricardo Middleton MD FACR Liver Ultrasound 06/19/17 0000 Signed Impressions: Service Date/Time: June 13:20 - CONCLUSION: 1. Mildly increased echotexture of the liver characteristic of hepatic steatosis. 2. Gallbladder sludge. Obdulio Sam MD Head CT 05/15/17 0000 Signed Impressions: Service Date/Time: May 19:59 - CONCLUSION: 1. 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 2. No bleed or new/acute infarct. Obdulio Simms MD Gall Bladder Ultrasound 05/08/17 0000 Signed Impressions: Service Date/Time: May 08:23 - CONCLUSION: Focally unremarkable appearance of the gallbladder Obdulio Chun MD Abdomen/Pelvis CT 05/07/17 0000 Signed Impressions: Service Date/Time: Sunday, May 07, 2017 13:23 - CONCLUSION: 1. Large left pneumothorax. 2. Bilateral lower lobe consolidation and bilateral moderate size pleural effusions. 3. Significant soft tissue thickening of the right lateral chest wall and left gluteus muscle. 4. Mild ascites. The findings were called to Dr. Carney. Deangelo Zamora MD Chest CT 04/30/17 0000 Signed Impressions: Service Date/Time: Sunday, April 30, 2017 09:20 - CONCLUSION: 1. Bilateral pulmonary infiltrates more pronounced within the lower lobes with tiny bilateral pleural effusions. Material seen filling the lower lobe bronchi bilaterally either related to purulent material or perhaps mucus plugging. Deangelo Wren Jr., MD Carotid Artery Ultrasound 04/24/17 0000 Signed Impressions: Service Date/Time: April 09:45 - CONCLUSION: 1. No hemodynamically significant carotid artery stenosis. Arnie Middleton MD Hip X-Ray 04/21/17 0000 Signed Impressions: Service Date/Time: Friday, April 21, 2017 11:36 - CONCLUSION: Fluoroscopic images during placement of intramedullary siomara left femur. Benja Ramsey MD Objective Remarks Not in distress, chronically ill, trach dependent It was equal reactive to light Regular rate and rhythm Clear breath sounds Abdomen soft, nontender, decondition in place with brown output Mild hand and lower extremity edema Awake, not alert, does not appear to be oriented. 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 A/P Problem List: (1) Acute ischemic left middle cerebral artery (MCA) stroke ICD Code: I63.512 - Cerebral infarction due to unspecified occlusion or stenosis of left middle cerebral artery Status: Acute (2) Acute respiratory failure ICD Code: J96.00 - Acute respiratory failure, unspecified whether with hypoxia or hypercapnia (3) Right hemiplegia ICD Code: G81.91 - Hemiplegia, unspecified affecting right dominant side Status: Acute (4) Sacral decubitus ulcer ICD Code: L89.159 - Pressure ulcer of sacral region, unspecified stage Status: Chronic (5) HCAP (healthcare-associated pneumonia) ICD Code: J18.9 - Pneumonia, unspecified organism Status: Resolved (6) 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 s/p ORIF on 04/21/17 LEFT MCA infarct- stroke alert on 04/24 5.5 mm of [id number] subfalcine herniation, diagnosed 04/24. Not a candidate for thrombolysis at that time. Increasing edema seen on repeat CT 04/28 with a reduction in midline shift on another repeat on 04/30 trach 05/15/17 and PEG 05/16/17 Hypertension CHF. Echo on October 06, 2017. EF 25-30%. Chronic tracheostomy/respiratory failure on October 22, 2017 On trach. Still requiring supplementary oxygen. Nebs when necessary. Pulmonary following. Elevated D-dimer Ordered 10/31 for increasing FiO2 demand CT pulmonary angiogram negative for acute pulmonary embolism. Likely from chronic illness. Right upper extremity significantly bigger than the left. Ultrasound studies did not reveal any DVT. Elevated right upper extremity. History of Large left pneumothorax Resolved Chest tube placed 05/07, discontinued 05/12/17 Hepatitis C Negative genotype/viral load Diabetes mellitus SSI Novolin R High-dose scale Levemir insulin 8u Q12. UTI - ? Etiology for abdominal distention, bladder scan showed retention, replace Leavitt catheter. KUB unremarkable, showed ileus, good bowel movements. Discussed with nursing. On Reglan. FEN PEG tube feeding with Glucerna 1.5 goal 45 cc/hr, per nutrition rec 10/20/17. Palliative care saw the patient 11/06/2017, discussed with POA, continue aggressive management, full code. Discharge Planning Aggressive therapy, full code per palliative. Needs placement Problem Qualifiers (1) Acute respiratory failure: Qualified Codes: J96.00 - Acute respiratory failure, unspecified whether with hypoxia or hypercapnia (2) Sacral decubitus ulcer: Qualified Codes: L89.152 - Pressure ulcer of sacral region, stage 2 (3) Chronic respiratory failure: Qualified Codes: J96.11 - Chronic respiratory failure with hypoxia Roderick Turcios MD Nov 07, 2017 13:04
[2017-11-07] MEDS: METOCLOPRAMIDE HCL SYRUP 10 MG/10 ML UDC PO SCH ×2 (14:30→20:40)
--- NOTE | 2017-11-07 17:43 | HHI.PR ---
Subjective Remarks Patient remains on ventilator via trach. On Trach collar Fi02 35% Tolerates TF No fever No new complaint Objective Vital Signs Vital Signs Date Time Temp Pulse Resp B/P (MAP) Pulse Ox O2 Delivery O2 Flow Rate FiO2 11/07/17 16:04 97.8 86 16 150/82 (104) 99 11/07/17 12:00 98.1 85 17 128/69 (88) 95 11/07/17 09:57 96 T-piece 5.00 28 11/07/17 08:00 98.4 76 18 157/79 (105) 99 11/07/17 08:00 75 11/07/17 04:00 71 16 138/66 (90) 98 11/07/17 02:00 98.0 64 16 122/54 (76) 98 11/06/17 20:58 98 T-piece 28 11/06/17 20:00 80 11/06/17 20:00 98.1 80 20 136/68 (90) 97 I/O 11/06/17 11/06/17 11/06/17 11/07/17 11/07/17 11/07/17 07:00 15:00 23:00 07:00 15:00 23:00 Intake Total 546 ml 800 ml 797 ml 1048 ml Output Total 850 ml 700 ml 1150 ml 500 ml Balance -304 ml 100 ml -353 ml 548 ml Intake Oral 0 ml IV Total 0 ml Tube Feeding 546 ml 400 ml 397 ml 648 ml Other 400 ml 400 ml 400 ml Output Urine Total 750 ml 600 ml 1000 ml 450 ml Stool Total 100 ml 100 ml 150 ml 50 ml # Voids 1 Objective Remarks GENERAL: Elderly female,NAD SKIN: Warm and dry. HEAD: Normocephalic. EYES: No scleral icterus. No injection or drainage. NECK: Supple, trachea midline. No JVD or lymphadenopathy. + trach CARDIOVASCULAR: Regular rate and rhythm without murmurs, gallops, or rubs. RESPIRATORY: Breath sounds equal bilaterally. No accessory muscle use. GASTROINTESTINAL: Abdomen soft, non-tender, nondistended. MUSCULOSKELETAL: No cyanosis, or edema. BACK: Nontender without obvious deformity. No CVA tenderness. A/P Assessment and Plan VDRF ,S/P Trach CVA Pneumonia Atelectasis Pseudomonas Tracheobronchitis, PLAN: ContinueTrach collar Bronchodilators, Pulm toilet, trach care Continue with tube feeds- Glucerna 1.5 with goal rate 45ml/hr GI/DVT prophylaxis Dr Klein covering over weekend Chris Rizo MD Nov 07, 2017 17:43
[2017-11-08] VITALS (8 sets, daily range): BP systolic 112–151; BP diastolic 51–87; PULSE 71–90; RESP 16–20; TEMP 98.6–99.8; O2SAT 95–99
[2017-11-08] MEDS: INSULIN NovoLIN REGULAR SUPPLEMENTAL SCALE SQ SCH ×4 (00:30→17:42)
[2017-11-08] MEDS: INSULIN DETEMIR 100 UNITS/ML VIAL SQ SCH ×2 (00:34→12:00)
[2017-11-08] MEDS: AMOXICIL-CLAV 600 MG/5 ML LIQ 125 ML BTL PO SCH ×2 (00:34→12:28)
[2017-11-08 05:08] LABS: BILIRUBIN, URINE NEG (NEG); BLOOD, URINE SMALL (NEG); GLUCOSE,URINE NEG (NEG); KETONE, URINE NEG (NEG); NITRITE,URINE NEG (NEG); PH, URINE 7.5 (5.0-8.5); SQUAMOUS EPITHELIAL CELL URINE 29 /hpf (0-5); URINE COLOR YELLOW (YELLW/STRAW); URINE LEUKOCYTE ESTERASE LARGE (NEG); WHITE BLOOD CELL CLUMPS MANY
[2017-11-08] MEDS: HEPARIN SODIUM - SQ 10,000 UNITS/ML VIAL SQ SCH ×3 (05:56→20:39)
[2017-11-08] MEDS: hydrALAZINE HCL 10 MG TAB PEG SCH ×3 (05:57→20:38)
[2017-11-08] MEDS: METOCLOPRAMIDE HCL SYRUP 10 MG/10 ML UDC PO SCH ×3 (05:57→20:38)
[2017-11-08] MEDS: ARTIFICIAL TEARS OPTH SOLN 15 ML BTL EACH EYE SCH ×3 (06:01→20:40)
--- NOTE | 2017-11-08 07:04 | HHI.PR ---
Subjective Remarks Pt seen and examined. AFVSS. D/W nursing. Leavitt was put in early this morning with 1200 cc UOP. Abdominal distention improved. Urine noted to be cloudy with sediment. Otherwise no new events or changes to neuro status. Pt continues to try and pull out trach or cover it up; daughter still wants aggressive care and full code. Objective Vitals Vital Signs Date Time Temp Pulse Resp B/P (MAP) Pulse Ox O2 Delivery O2 Flow Rate FiO2 11/08/17 03:47 98.6 75 18 125/58 (80) 97 11/08/17 00:00 99.5 75 18 120/66 (84) 96 11/07/17 20:07 98 T-piece 5.00 28 11/07/17 20:00 99.8 78 18 125/67 (86) 98 11/07/17 16:04 97.8 86 16 150/82 (104) 99 11/07/17 12:00 98.1 85 17 128/69 (88) 95 11/07/17 09:57 96 T-piece 5.00 28 11/07/17 08:00 98.4 76 18 157/79 (105) 99 11/07/17 08:00 75 I/O 11/07/17 11/07/17 11/07/17 11/08/17 11/08/17 11/08/17 07:00 15:00 23:00 07:00 15:00 23:00 Intake Total 797 ml 1048 ml 1031 ml Output Total 1150 ml 500 ml 1300 ml Balance -353 ml 548 ml -269 ml Tube Feeding 397 ml 648 ml 531 ml Other 400 ml 400 ml 500 ml Output Urine Total 1000 ml 450 ml 1200 ml Stool Total 150 ml 50 ml 100 ml Bladder Scan Volume Amount 208 ml 1000 ml # Voids 1 1 Objective Remarks GENERAL: Thin, neurologic deficits following stroke, nonverbal SKIN: Warm and dry. HEENT: Normocephalic.No scleral icterus. No injection or drainage. NECK: Trach in place. CARDIOVASCULAR: RRR with 1/6 TEJ. RESPIRATORY: Breath sounds equal bilaterally. No accessory muscle use. GASTROINTESTINAL: Abdomen soft, non-tender, nondistended. EXTREMITIES: RUE edematous. No warmth or erythema. NEUROLOGICAL: Sleeping. A/P Problem List: (1) Acute ischemic left middle cerebral artery (MCA) stroke ICD Code: I63.512 - Cerebral infarction due to unspecified occlusion or stenosis of left middle cerebral artery Status: Acute (2) Acute respiratory failure ICD Code: J96.00 - Acute respiratory failure, unspecified whether with hypoxia or hypercapnia (3) Right hemiplegia ICD Code: G81.91 - Hemiplegia, unspecified affecting right dominant side Status: Acute (4) Sacral decubitus ulcer ICD Code: L89.159 - Pressure ulcer of sacral region, unspecified stage Status: Chronic (5) HCAP (healthcare-associated pneumonia) ICD Code: J18.9 - Pneumonia, unspecified organism Status: Resolved (6) 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 She underwent ORIF on 04/21/17 and on 04/24 a stroke alert was called as she was found to have right hemiparesis with left gaze. She has a poor prognosis based on her lack of overall recovery over the last 6+ months. Patient has no acute issues, no change in care plan. Urinary retention Afebrile and no leukocytosis U/A with large leuk esterase but many squamous cells F/U urine culture Started on Augmentin yesterday Leavitt in place, 1200 cc UOP this AM Elevated D-dimer Ordered 10/31 for increasing FiO2 demand Since elevated CTA chest obtained to r/o PE which was negative Likely elevated in light of chronic illness RUE U/S negative for DVT - elevate R arm Left MCA stroke 5.5 mm of [id number] subfalcine herniation, diagnosed 04/24. Was not a candidate for thrombolysis at that time. Increasing edema seen on repeat CT 04/28 with a reduction in midline shift on another repeat on 04/30 Neurologic condition remained poor and she underwent trach 05/15/17 and PEG Persistent right-sided hemiparesis. Previously seen by neurology, signed off Previously seen by neurosurgery, signed off Continue daily ASA Hypertension / CHF Amlodipine 10 mg po daily, Doxazosin 1 mg peg daily, hydralazine 10 mg per per peg q8 hours. Clonidine 0.1 mg q6h prn Echo 10/06/17 LVSF EF = 25-30%. Chronic Tracheostomy /respiratory failure 10/22/2017 Pulmonary toilet, trach care Duo nebs as needed Pulm following, appreciate assistance Large left pneumothorax Resolved Chest tube placed 05/07, discontinued 05/12/17 Hepatitis C LFTs normalized Negative genotype/viral load Diabetes mellitus SSI Novolin R High-dose scale Levemir insulin 8u Q12 FEN PEG tube feeding with Glucerna 1.5 goal 45 cc/hr, per nutrition rec 10/20/17. DVT prophylaxis Heparin Discharge Planning Poor prognosis with no meaningful recovery but family wants aggressive care Problem Qualifiers (1) Acute respiratory failure: Qualified Codes: J96.00 - Acute respiratory failure, unspecified whether with hypoxia or hypercapnia (2) Sacral decubitus ulcer: Qualified Codes: L89.152 - Pressure ulcer of sacral region, stage 2 (3) Chronic respiratory failure: Qualified Codes: J96.11 - Chronic respiratory failure with hypoxia Laure Ga MD Nov 08, 2017 07:04
[2017-11-08] MEDS: SODIUM CHLORIDE 0.9% FLUSH 5 ML FLUSH IV FLUSH SCH ×2 (09:00→20:39)
[2017-11-08] MEDS: ASPIRIN 325 MG TAB DOBHOFF SCH (09:24)
[2017-11-08] MEDS: LACTOBACILLUS ACIDOPHILUS TAB PEG SCH ×2 (09:24→20:39)
[2017-11-08] MEDS: LANSOPRAZOLE SOLUTAB 30 MG TAB NG SCH (09:24)
[2017-11-08] MEDS: DOXAZOSIN MESYLATE 1 MG TAB PEG SCH (09:24)
[2017-11-08] MEDS: CHOLECALCIFEROL (VIT D3) 5000 UNIT CAP PEG SCH (09:24)
--- NOTE | 2017-11-08 10:16 | HHI.PR ---
Subjective Remarks Patient is on TP's with 28% FIO2. T:99.8 last night. Tolerating tube feeds. Objective Vital Signs Vital Signs Date Time Temp Pulse Resp B/P (MAP) Pulse Ox O2 Delivery O2 Flow Rate FiO2 11/08/17 08:06 99 T-piece 5.00 28 11/08/17 03:47 98.6 75 18 125/58 (80) 97 11/08/17 00:00 99.5 75 18 120/66 (84) 96 11/07/17 20:07 98 T-piece 5.00 28 11/07/17 20:00 99.8 78 18 125/67 (86) 98 11/07/17 16:04 97.8 86 16 150/82 (104) 99 11/07/17 12:00 98.1 85 17 128/69 (88) 95 I/O 11/07/17 11/07/17 11/07/17 11/08/17 11/08/17 11/08/17 07:00 15:00 23:00 07:00 15:00 23:00 Intake Total 797 ml 1048 ml 1031 ml Output Total 1150 ml 500 ml 1300 ml Balance -353 ml 548 ml -269 ml Tube Feeding 397 ml 648 ml 531 ml Other 400 ml 400 ml 500 ml Output Urine Total 1000 ml 450 ml 1200 ml Stool Total 150 ml 50 ml 100 ml Bladder Scan Volume Amount 208 ml 1000 ml # Voids 1 1 Other Results Last Impressions Upper Extremity Ultrasound 11/04/17 0000 Signed Impressions: Service Date/Time: Saturday, November 04, 2017 09:57 - CONCLUSION: No thrombus observed. Subcutaneous edema noted. Deangelo Wren Jr., MD Abdomen X-Ray 11/04/17 0000 Signed Impressions: Service Date/Time: Saturday, November 04, 2017 11:58 - CONCLUSION: Gaseous distention of bowel loops could be ileus but unchanged. Benja Ramsey MD CT Angiography 11/01/17 0000 Signed Impressions: Service Date/Time: Wednesday, November 01, 2017 16:47 - CONCLUSION: No evidence for pulmonary embolism. Please see above. Choco Mustafa MD Chest X-Ray 10/27/17 0600 Signed Impressions: Service Date/Time: Friday, October 27, 2017 04:26 - CONCLUSION: 1. Mild positive fluid balance which appears slightly more prominent likely due to the lower lung volumes. 2. Mild bibasilar airspace disease, presumably atelectasis. Alejo De La Vega MD Thoracentesis 08/05/17 1535 Signed Impressions: Service Date/Time: Saturday, August 05, 2017 16:08 - CONCLUSION: Uncomplicated CT-guided thoracentesis. Sage Adler MD Chest Ultrasound 08/02/17 0000 Signed Impressions: Service Date/Time: Tuesday, August 01, 2017 22:06 - CONCLUSION: 1. Moderate right pleural effusion, as above. Alejo De La Vega MD Hip and Pelvis X-Ray 07/09/17 0000 Signed Impressions: Service Date/Time: Sunday, July 09, 2017 14:04 - CONCLUSION: Anatomic alignment. Ricardo Middleton MD FACR Liver Ultrasound 06/19/17 0000 Signed Impressions: Service Date/Time: June 13:20 - CONCLUSION: 1. Mildly increased echotexture of the liver characteristic of hepatic steatosis. 2. Gallbladder sludge. Obdulio Sam MD Head CT 05/15/17 0000 Signed Impressions: Service Date/Time: May 19:59 - CONCLUSION: 1. 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 2. No bleed or new/acute infarct. Obdulio Simms MD Gall Bladder Ultrasound 05/08/17 0000 Signed Impressions: Service Date/Time: May 08:23 - CONCLUSION: Focally unremarkable appearance of the gallbladder Obdulio Chun MD Abdomen/Pelvis CT 05/07/17 0000 Signed Impressions: Service Date/Time: Sunday, May 07, 2017 13:23 - CONCLUSION: 1. Large left pneumothorax. 2. Bilateral lower lobe consolidation and bilateral moderate size pleural effusions. 3. Significant soft tissue thickening of the right lateral chest wall and left gluteus muscle. 4. Mild ascites. The findings were called to Dr. Carney. Deangelo Zamora MD Chest CT 04/30/17 0000 Signed Impressions: Service Date/Time: Sunday, April 30, 2017 09:20 - CONCLUSION: 1. Bilateral pulmonary infiltrates more pronounced within the lower lobes with tiny bilateral pleural effusions. Material seen filling the lower lobe bronchi bilaterally either related to purulent material or perhaps mucus plugging. Deangelo Wren Jr., MD Carotid Artery Ultrasound 04/24/17 0000 Signed Impressions: Service Date/Time: April 09:45 - CONCLUSION: 1. No hemodynamically significant carotid artery stenosis. Arnie Middleton MD Hip X-Ray 04/21/17 0000 Signed Impressions: Service Date/Time: Friday, April 21, 2017 11:36 - CONCLUSION: Fluoroscopic images during placement of intramedullary siomara left femur. Benja Ramsey MD Objective Remarks GENERAL: Elderly female,NAD SKIN: Warm and dry. HEAD: Normocephalic. EYES: No scleral icterus. No injection or drainage. NECK: Supple, trachea midline. No JVD or lymphadenopathy. + trach CARDIOVASCULAR: Regular rate and rhythm without murmurs, gallops, or rubs. RESPIRATORY: Breath sounds equal bilaterally. No accessory muscle use. GASTROINTESTINAL: Abdomen soft, non-tender, nondistended. MUSCULOSKELETAL: No cyanosis, or edema. BACK: Nontender without obvious deformity. No CVA tenderness. A/P Assessment and Plan Chronic resp failure, ,S/P Trach CVA Pneumonia Calcified Granuloma LLL Pseudomonas Tracheobronchitis, PLAN: Continue with TP's, keep sats >92% Bronchodilators, Pulm toilet, trach care CT chest 11/01: No PE,adenopathy in the right paratracheal, subcarinal and hilar regions with numerous prominent lymph nodes seen. Continue with abx ( Augmentin)monitor for signs of infections ( fever, WBC) Continue with tube feeds- Glucerna 1.5 @ 45ml/hr GI/DVT prophylaxis Continue treatment plan Kristel Durant MD Nov 08, 2017 10:16
[2017-11-08] MEDS: CALCIUM/VITAMIN D 250 MG/125 U TAB PEG SCH ×3 (10:50→17:08)
[2017-11-08] MEDS: RESP: ALBUTEROL 2.5 MG/IPRATROPIUM 0.5 MG NEB (SCH) NEB ×3 (13:15→20:29)
[2017-11-09] VITALS (8 sets, daily range): BP systolic 106–127; BP diastolic 48–88; PULSE 80–101; RESP 17–20; TEMP 98.2–99.9; O2SAT 94–99
[2017-11-09] MEDS: INSULIN DETEMIR 100 UNITS/ML VIAL SQ SCH ×2 (01:23→14:55)
[2017-11-09] MEDS: AMOXICIL-CLAV 600 MG/5 ML LIQ 125 ML BTL PO SCH ×2 (01:23→15:00)
[2017-11-09] MEDS: INSULIN NovoLIN REGULAR SUPPLEMENTAL SCALE SQ SCH ×4 (01:24→18:00)
[2017-11-09] MEDS: HEPARIN SODIUM - SQ 10,000 UNITS/ML VIAL SQ SCH ×3 (05:35→20:42)
[2017-11-09] MEDS: METOCLOPRAMIDE HCL SYRUP 10 MG/10 ML UDC PO SCH ×3 (05:35→20:45)
[2017-11-09] MEDS: hydrALAZINE HCL 10 MG TAB PEG SCH ×3 (05:36→20:42)
[2017-11-09] MEDS: ARTIFICIAL TEARS OPTH SOLN 15 ML BTL EACH EYE SCH ×3 (05:36→20:45)
[2017-11-09 07:29] LABS: AUTOMATED NEUTROPHIL # 5.7 TH/MM3 (1.8-7.7); BASOPHIL # 0.1 TH/MM3 (0-0.2); EOSINOPHIL # 0.2 TH/MM3 (0-0.4); EOSINOPHIL % 2.7 % (0.0-4.0); HEMATOCRIT 24.7 % (35.0-46.0); HEMOGLOBIN 8.6 GM/DL (11.6-15.3); LYMPH % 23.2 % (9.0-44.0); MEAN CELL VOLUME 98.2 FL (80.0-100.0); MEAN CORPUSCULAR HEMOGLOBIN 34.2 PG (27.0-34.0); MEAN CORPUSCULAR HGB CONC 34.8 % (32.0-36.0); MEAN PLATELET VOLUME 8.4 FL (7.0-11.0); MONO % 6.8 % (0.0-8.0); MONOCYTE # 0.6 TH/MM3 (0-0.9); NEUT % 66.3 % (16.0-70.0); PLATELET COUNT 336 TH/MM3 (150-450); RED BLOOD COUNT 2.52 MIL/MM3 (4.00-5.30); RED CELL DISTRIBUTION WIDTH 16.7 % (11.6-17.2); WHITE BLOOD COUNT 8.5 TH/MM3 (4.0-11.0)
[2017-11-09 07:52] LABS: BICARBONATE 30.5 MEQ/L (21.0-32.0); CREATININE 0.54 MG/DL (0.50-1.00); MAGNESIUM 2.2 MG/DL (1.5-2.5); PHOSPHORUS 3.1 MG/DL (2.5-4.9)
[2017-11-09 09:18] LABS: BANDS 1 % (0-6); LYMPHOCYTES 13 % (9-44); MONOCYTES 7 % (0-8); MYELOCYTES 3 % (0-0); NEUTROPHIL # MANUAL DIFF 6.6 TH/MM3 (1.8-7.7); POLYS (SEG NEUTROPHILS) 74 % (16-70)
[2017-11-09] MEDS: RESP: ALBUTEROL 2.5 MG/IPRATROPIUM 0.5 MG NEB (SCH) NEB ×3 (09:19→21:02)
--- NOTE | 2017-11-09 09:24 | HHI.PR ---
Subjective Remarks No events overnight. Patient is on TP's with 28% FIO2. T:99.9 last night. Tolerating tube feeds. Objective Vital Signs Vital Signs Date Time Temp Pulse Resp B/P (MAP) Pulse Ox O2 Delivery O2 Flow Rate FiO2 11/09/17 04:00 99.6 80 18 121/65 (83) 99 11/09/17 00:00 99.9 96 18 127/56 (79) 98 11/08/17 20:31 95 T-piece 28 11/08/17 20:00 99.8 90 16 112/51 (71) 99 11/08/17 16:00 98.6 72 18 151/87 (108) 98 11/08/17 12:00 98.8 72 18 118/66 (83) 98 I/O 11/08/17 11/08/17 11/08/17 11/09/17 11/09/17 11/09/17 07:00 15:00 23:00 07:00 15:00 23:00 Intake Total 1031 ml 935 ml 1000 ml Output Total 1300 ml 550 ml 400 ml Balance -269 ml 385 ml 600 ml Tube Feeding 531 ml 535 ml 600 ml Other 500 ml 400 ml 400 ml Output Urine Total 1200 ml 450 ml 400 ml Stool Total 100 ml 100 ml 0 ml Bladder Scan Volume Amount 1000 ml # Voids 1 Result Diagram: 11/09/17 0642 11/09/17 0642 Other Results Laboratory Tests Test 11/09/17 06:42 White Blood Count 8.5 TH/MM3 Red Blood Count 2.52 MIL/MM3 Hemoglobin 8.6 GM/DL Hematocrit 24.7 % Mean Corpuscular Volume 98.2 FL Mean Corpuscular Hemoglobin 34.2 PG Mean Corpuscular Hemoglobin Concent 34.8 % Red Cell Distribution Width 16.7 % Platelet Count 336 TH/MM3 Mean Platelet Volume 8.4 FL Neutrophils (%) (Auto) 66.3 % Lymphocytes (%) (Auto) 23.2 % Monocytes (%) (Auto) 6.8 % Eosinophils (%) (Auto) 2.7 % Basophils (%) (Auto) 1.0 % Neutrophils # (Auto) 5.7 TH/MM3 Lymphocytes # (Auto) 2.0 TH/MM3 Monocytes # (Auto) 0.6 TH/MM3 Eosinophils # (Auto) 0.2 TH/MM3 Basophils # (Auto) 0.1 TH/MM3 CBC Comment AUTO DIFF Differential Total Cells Counted 100 Neutrophils % (Manual) 74 % Band Neutrophils % 1 % Lymphocytes % 13 % Monocytes % 7 % Eosinophils % 2 % Neutrophils # (Manual) 6.6 TH/MM3 Myelocytes 3 % Differential Comment FINAL DIFF MANUAL Platelet Estimate NORMAL Platelet Morphology Comment NORMAL Basophilic Stippling FAINT Blood Urea Nitrogen 29 MG/DL Creatinine 0.54 MG/DL Random Glucose 151 MG/DL Calcium Level 9.0 MG/DL Phosphorus Level 3.1 MG/DL Magnesium Level 2.2 MG/DL Sodium Level 137 MEQ/L Potassium Level 4.4 MEQ/L Chloride Level 101 MEQ/L Carbon Dioxide Level 30.5 MEQ/L Anion Gap 6 MEQ/L Estimat Glomerular Filtration Rate 110 ML/MIN Objective Remarks GENERAL: Elderly female,NAD SKIN: Warm and dry. HEAD: Normocephalic. EYES: No scleral icterus. No injection or drainage. NECK: Supple, trachea midline. No JVD or lymphadenopathy. + trach CARDIOVASCULAR: Regular rate and rhythm without murmurs, gallops, or rubs. RESPIRATORY: Breath sounds equal bilaterally. No accessory muscle use. GASTROINTESTINAL: Abdomen soft, non-tender, nondistended. MUSCULOSKELETAL: No cyanosis, or edema. BACK: Nontender without obvious deformity. No CVA tenderness. A/P Assessment and Plan Chronic resp failure, ,S/P Trach CVA Pneumonia Calcified Granuloma LLL Pseudomonas Tracheobronchitis, PLAN: Continue with TP's, keep sats >92% Bronchodilators, check CXR Pulm toilet, trach care CT chest 11/01: No PE,adenopathy in the right paratracheal, subcarinal and hilar regions with numerous prominent lymph nodes seen. Continue with abx ( Augmentin)monitor for signs of infections ( fever, WBC) follow up on urine cx Continue with tube feeds- Glucerna 1.5 @ 45ml/hr GI/DVT prophylaxis Continue treatment plan Kristel Durant MD Nov 09, 2017 09:24
[2017-11-09] MEDS: LANSOPRAZOLE SOLUTAB 30 MG TAB NG SCH (09:39)
[2017-11-09] MEDS: CHOLECALCIFEROL (VIT D3) 5000 UNIT CAP PEG SCH (09:39)
[2017-11-09] MEDS: ASPIRIN 325 MG TAB DOBHOFF SCH (09:39)
[2017-11-09] MEDS: LACTOBACILLUS ACIDOPHILUS TAB PEG SCH ×2 (09:39→20:42)
[2017-11-09] MEDS: DOXAZOSIN MESYLATE 1 MG TAB PEG SCH (09:39)
[2017-11-09] MEDS: CALCIUM/VITAMIN D 250 MG/125 U TAB PEG SCH ×3 (09:39→18:00)
[2017-11-09] MEDS: SODIUM CHLORIDE 0.9% FLUSH 5 ML FLUSH IV FLUSH SCH ×2 (09:41→20:43)
--- NOTE | 2017-11-09 12:25 | HHI.PR ---
Subjective Remarks Pt seen and examined. AFVSS. D/W nursing. No new events or changes in mental status. Leavitt still in place because of urinary retention. Objective Vitals Vital Signs Date Time Temp Pulse Resp B/P (MAP) Pulse Ox O2 Delivery O2 Flow Rate FiO2 11/09/17 09:19 99 T-piece 5.00 28 11/09/17 04:00 99.6 80 18 121/65 (83) 99 11/09/17 00:00 99.9 96 18 127/56 (79) 98 11/08/17 20:31 95 T-piece 28 11/08/17 20:00 99.8 90 16 112/51 (71) 99 11/08/17 16:00 98.6 72 18 151/87 (108) 98 I/O 11/08/17 11/08/17 11/08/17 11/09/17 11/09/17 11/09/17 07:00 15:00 23:00 07:00 15:00 23:00 Intake Total 1031 ml 935 ml 1000 ml Output Total 1300 ml 550 ml 400 ml Balance -269 ml 385 ml 600 ml Tube Feeding 531 ml 535 ml 600 ml Other 500 ml 400 ml 400 ml Output Urine Total 1200 ml 450 ml 400 ml Stool Total 100 ml 100 ml 0 ml Bladder Scan Volume Amount 1000 ml # Voids 1 Result Diagram: 11/09/17 0642 11/09/17 0642 Objective Remarks GENERAL: Thin, neurologic deficits following stroke, nonverbal SKIN: Warm and dry. HEENT: Normocephalic.No scleral icterus. No injection or drainage. NECK: Trach in place. CARDIOVASCULAR: RRR with 1/6 TEJ. RESPIRATORY: Breath sounds equal bilaterally. No accessory muscle use. GASTROINTESTINAL: Abdomen soft, non-tender, nondistended. EXTREMITIES: RUE edematous. No warmth or erythema. NEUROLOGICAL: Awake. Squeezes my hand. A/P Problem List: (1) Acute ischemic left middle cerebral artery (MCA) stroke ICD Code: I63.512 - Cerebral infarction due to unspecified occlusion or stenosis of left middle cerebral artery Status: Acute (2) Acute respiratory failure ICD Code: J96.00 - Acute respiratory failure, unspecified whether with hypoxia or hypercapnia (3) Right hemiplegia ICD Code: G81.91 - Hemiplegia, unspecified affecting right dominant side Status: Acute (4) Sacral decubitus ulcer ICD Code: L89.159 - Pressure ulcer of sacral region, unspecified stage Status: Chronic (5) HCAP (healthcare-associated pneumonia) ICD Code: J18.9 - Pneumonia, unspecified organism Status: Resolved (6) 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 She underwent ORIF on 04/21/17 and on 04/24 a stroke alert was called as she was found to have right hemiparesis with left gaze. She has a poor prognosis based on her lack of overall recovery over the last 6+ months. Patient has no acute issues, no change in care plan. Urinary retention Afebrile and no leukocytosis U/A with large leuk esterase but many squamous cells F/U urine culture - reincubating Started on Augmentin 11/[address] Elevated D-dimer Ordered 10/31 for increasing FiO2 demand Since elevated CTA chest obtained to r/o PE which was negative Likely elevated in light of chronic illness RUE U/S negative for DVT - elevate R arm Left MCA stroke 5.5 mm of [id number] subfalcine herniation, diagnosed 04/24. Was not a candidate for thrombolysis at that time. Increasing edema seen on repeat CT 04/28 with a reduction in midline shift on another repeat on 04/30 Neurologic condition remained poor and she underwent trach 05/15/17 and PEG Persistent right-sided hemiparesis. Previously seen by neurology, signed off Previously seen by neurosurgery, signed off Continue daily ASA Hypertension / CHF Amlodipine 10 mg po daily, Doxazosin 1 mg peg daily, hydralazine 10 mg per per peg q8 hours. Clonidine 0.1 mg q6h prn Echo 10/06/17 LVSF EF = 25-30%. Chronic Tracheostomy /respiratory failure 10/22/2017 Pulmonary toilet, trach care Duo nebs as needed Pulm following, appreciate assistance Large left pneumothorax Resolved Chest tube placed 05/07, discontinued 05/12/17 Hepatitis C LFTs normalized Negative genotype/viral load Diabetes mellitus SSI Novolin R High-dose scale Levemir insulin 8u Q12 FEN PEG tube feeding with Glucerna 1.5 goal 45 cc/hr, per nutrition rec 10/20/17. DVT prophylaxis Heparin Discharge Planning Poor prognosis with no meaningful recovery but family wants aggressive care Problem Qualifiers (1) Acute respiratory failure: Qualified Codes: J96.00 - Acute respiratory failure, unspecified whether with hypoxia or hypercapnia (2) Sacral decubitus ulcer: Qualified Codes: L89.152 - Pressure ulcer of sacral region, stage 2 (3) Chronic respiratory failure: Qualified Codes: J96.11 - Chronic respiratory failure with hypoxia Laure Ga MD Nov 09, 2017 12:25
[2017-11-10] VITALS (8 sets, daily range): BP systolic 117–128; BP diastolic 55–69; PULSE 75–85; RESP 16–23; TEMP 98.4–100.6; O2SAT 94–98
[2017-11-10] MEDS: AMOXICIL-CLAV 600 MG/5 ML LIQ 125 ML BTL PO SCH ×2 (00:28→12:00)
[2017-11-10] MEDS: INSULIN DETEMIR 100 UNITS/ML VIAL SQ SCH ×2 (00:28→12:00)
[2017-11-10] MEDS: INSULIN NovoLIN REGULAR SUPPLEMENTAL SCALE SQ SCH ×4 (00:29→17:54)
[2017-11-10] MEDS: RESP: ALBUTEROL 2.5 MG/IPRATROPIUM 0.5 MG NEB (SCH) NEB ×4 (04:25→22:34)
[2017-11-10] MEDS: METOCLOPRAMIDE HCL SYRUP 10 MG/10 ML UDC PO SCH ×3 (05:11→20:46)
[2017-11-10] MEDS: hydrALAZINE HCL 10 MG TAB PEG SCH ×3 (05:11→20:46)
[2017-11-10] MEDS: ARTIFICIAL TEARS OPTH SOLN 15 ML BTL EACH EYE SCH ×3 (05:12→20:46)
[2017-11-10] MEDS: HEPARIN SODIUM - SQ 10,000 UNITS/ML VIAL SQ SCH ×3 (05:12→20:46)
--- NOTE | 2017-11-10 05:23 | RADRPT ---
EXAM DATE/TIME: 11/10/2017 04:08 [facility] COMPARISON: CHEST SINGLE AP, October 27, 2017, 4:26. INDICATIONS : Shortness of breath, possible pulmonary disease. MEDICAL HISTORY : Stroke. Hypertension Diabetes mellitus type II. SURGICAL HISTORY : None. ENCOUNTER: Subsequent ACUITY: 1 week PAIN SCORE: Non-responsive. LOCATION: Bilateral chest FINDINGS: A single portable frontal view of the chest shows scattered pulmonary consolidation is most pronounce d within the bases. Pulmonary vascular engorgement noted. The heart small but enlarged. No effusions. Tracheostomy tube observed. CONCLUSION: Unchanged cardiomegaly with pulmonary vascular engorgement and bibasilar atelectasis. Deangelo Wren Jr., MD on November 10, 2017 at 5:21 Board Certified Radiologist. This report was verified electronically.
[2017-11-10] MEDS: SODIUM CHLORIDE 0.9% FLUSH 5 ML FLUSH IV FLUSH SCH ×2 (09:00→20:47)
[2017-11-10] MEDS: LANSOPRAZOLE SOLUTAB 30 MG TAB NG SCH (09:12)
[2017-11-10] MEDS: LACTOBACILLUS ACIDOPHILUS TAB PEG SCH ×2 (09:12→20:46)
[2017-11-10] MEDS: CHOLECALCIFEROL (VIT D3) 5000 UNIT CAP PEG SCH (09:12)
[2017-11-10] MEDS: DOXAZOSIN MESYLATE 1 MG TAB PEG SCH (09:12)
[2017-11-10] MEDS: CALCIUM/VITAMIN D 250 MG/125 U TAB PEG SCH ×3 (09:12→18:05)
[2017-11-10] MEDS: ASPIRIN 325 MG TAB DOBHOFF SCH (09:13)
--- NOTE | 2017-11-10 15:38 | HHI.PR ---
Subjective Remarks Pt seen and examined. VS reviewed, temperature of 100.6 this morning but back to normal by noon vitals. D/W nursing. No acute events or changes in neuro status. Patient remains nonverbal. Squeezes my hand but doesn't open eyes. Objective Vitals Vital Signs Date Time Temp Pulse Resp B/P (MAP) Pulse Ox O2 Delivery O2 Flow Rate FiO2 11/10/17 12:00 99.5 83 18 117/57 (77) 98 11/10/17 08:17 97 T-piece 5.00 28 11/10/17 08:00 100.6 85 16 118/55 (76) 96 11/10/17 04:00 99.2 76 20 118/60 (79) 97 11/10/17 00:30 98.4 83 18 126/65 (85) 98 11/09/17 21:02 98 T-piece 6.00 28 11/09/17 20:40 99.8 84 20 122/60 (80) 98 11/09/17 16:00 98.2 101 19 125/48 (73) 97 I/O 11/09/17 11/09/17 11/09/17 11/10/17 11/10/17 11/10/17 07:00 15:00 23:00 07:00 15:00 23:00 Intake Total 1000 ml 940 ml 900 ml Output Total 400 ml 650 ml 800 ml Balance 600 ml 290 ml 100 ml Tube Feeding 600 ml 540 ml 500 ml Tube Irrigant 0 ml Other 400 ml 400 ml 400 ml Output Urine Total 400 ml 525 ml 700 ml Stool Total 0 ml 125 ml 100 ml Bladder Scan Volume Amount 1000 ml Result Diagram: 11/09/1742 11/09/1742 Objective Remarks GENERAL: Thin, neurologic deficits following stroke, nonverbal SKIN: Warm and dry. HEENT: Normocephalic.No scleral icterus. No injection or drainage. NECK: Trach in place. CARDIOVASCULAR: RRR with 1/6 TEJ. RESPIRATORY: Breath sounds equal bilaterally. No accessory muscle use. GASTROINTESTINAL: Abdomen soft, non-tender, nondistended. EXTREMITIES: RUE edematous. No warmth or erythema. NEUROLOGICAL: Awake. Squeezes my hand. A/P Problem List: (1) Acute ischemic left middle cerebral artery (MCA) stroke ICD Code: I63.512 - Cerebral infarction due to unspecified occlusion or stenosis of left middle cerebral artery Status: Acute (2) Acute respiratory failure ICD Code: J96.00 - Acute respiratory failure, unspecified whether with hypoxia or hypercapnia (3) Right hemiplegia ICD Code: G81.91 - Hemiplegia, unspecified affecting right dominant side Status: Acute (4) Sacral decubitus ulcer ICD Code: L89.159 - Pressure ulcer of sacral region, unspecified stage Status: Chronic (5) HCAP (healthcare-associated pneumonia) ICD Code: J18.9 - Pneumonia, unspecified organism Status: Resolved (6) 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 She underwent ORIF on 04/21/17 and on 04/24 a stroke alert was called as she was found to have right hemiparesis with left gaze. She has a poor prognosis based on her lack of overall recovery over the last 6+ months. Patient has no acute issues, no change in care plan. Fever Low grade this morning Continue to monitor If continues check labs, lactic acid, etc. CXR this morning showing atelectasis which could be the cause Urinary retention Afebrile and no leukocytosis U/A with large leuk esterase but many squamous cells Culture with mixed Gram positive dmitry Started on Augmentin 11/[address] Elevated D-dimer Ordered 10/31 for increasing FiO2 demand Since elevated CTA chest obtained to r/o PE which was negative Likely elevated in light of chronic illness RUE U/S negative for DVT - elevate R arm Left MCA stroke 5.5 mm of [id number]-bf-[id number] subfalcine herniation, diagnosed 04/24. Was not a candidate for thrombolysis at that time. Increasing edema seen on repeat CT 04/28 with a reduction in midline shift on another repeat on 04/30 Neurologic condition remained poor and she underwent trach 05/15/17 and PEG Persistent right-sided hemiparesis. Previously seen by neurology, signed off Previously seen by neurosurgery, signed off Continue daily ASA Hypertension / CHF Amlodipine 10 mg po daily, Doxazosin 1 mg peg daily, hydralazine 10 mg per per peg q8 hours. Clonidine 0.1 mg q6h prn Echo 10/06/17 LVSF EF = 25-30%. Chronic Tracheostomy /respiratory failure 10/22/2017 Pulmonary toilet, trach care Duo nebs as needed Pulm following, appreciate assistance Large left pneumothorax Resolved Chest tube placed 05/07, discontinued 05/12/17 Hepatitis C LFTs normalized Negative genotype/viral load Diabetes mellitus SSI Novolin R High-dose scale Levemir insulin 8u Q12 FEN PEG tube feeding with Glucerna 1.5 goal 45 cc/hr, per nutrition rec 10/20/17. DVT prophylaxis Heparin Discharge Planning Poor prognosis with no meaningful recovery but family wants aggressive care Problem Qualifiers (1) Acute respiratory failure: Qualified Codes: J96.00 - Acute respiratory failure, unspecified whether with hypoxia or hypercapnia (2) Sacral decubitus ulcer: Qualified Codes: L89.152 - Pressure ulcer of sacral region, stage 2 (3) Chronic respiratory failure: Qualified Codes: J96.11 - Chronic respiratory failure with hypoxia Laure Ga MD Nov 10, 2017 15:38
--- NOTE | 2017-11-10 16:25 | HHI.PR ---
Subjective Remarks No events overnight. Patient is on TP's with 28% FIO2. . Tolerating tube feeds. Awake, looks around Objective Vital Signs Vital Signs Date Time Temp Pulse Resp B/P (MAP) Pulse Ox O2 Delivery O2 Flow Rate FiO2 11/10/17 12:00 99.5 83 18 117/57 (77) 98 11/10/17 08:17 97 T-piece 5.00 28 11/10/17 08:00 100.6 85 16 118/55 (76) 96 11/10/17 04:00 99.2 76 20 118/60 (79) 97 11/10/17 00:30 98.4 83 18 126/65 (85) 98 11/09/17 21:02 98 T-piece 6.00 28 11/09/17 20:40 99.8 84 20 122/60 (80) 98 I/O 11/09/17 11/09/17 11/09/17 11/10/17 11/10/17 11/10/17 07:00 15:00 23:00 07:00 15:00 23:00 Intake Total 1000 ml 940 ml 900 ml Output Total 400 ml 650 ml 800 ml Balance 600 ml 290 ml 100 ml Tube Feeding 600 ml 540 ml 500 ml Tube Irrigant 0 ml Other 400 ml 400 ml 400 ml Output Urine Total 400 ml 525 ml 700 ml Stool Total 0 ml 125 ml 100 ml Bladder Scan Volume Amount 1000 ml Result Diagram: 11/09/1764111/09/17641 Objective Remarks GENERAL: Elderly female,NAD SKIN: Warm and dry. HEAD: Normocephalic. EYES: No scleral icterus. No injection or drainage. NECK: Supple, trachea midline. No JVD or lymphadenopathy. + trach CARDIOVASCULAR: Regular rate and rhythm without murmurs, gallops, or rubs. RESPIRATORY: Breath sounds equal bilaterally. No accessory muscle use. GASTROINTESTINAL: Abdomen soft, non-tender, nondistended. MUSCULOSKELETAL: No cyanosis, or edema. BACK: Nontender without obvious deformity. No CVA tenderness. A/P Assessment and Plan Chronic resp failure, ,S/P Trach CVA Pneumonia Calcified Granuloma LLL Pseudomonas Tracheobronchitis, PLAN: Continue with TP's, keep sats >92% Bronchodilators, Pulm toilet, trach care CT chest 11/01: No PE,adenopathy in the right paratracheal, subcarinal and hilar regions with numerous prominent lymph nodes seen. Continue with abx ( Augmentin)monitor for signs of infections ( fever, WBC) follow up on urine cx Continue with tube feeds- Glucerna 1.5 @ 45ml/hr GI/DVT prophylaxis Continue treatment plan Chris Rizo MD Nov 10, 2017 16:25
[2017-11-11] VITALS (8 sets, daily range): BP systolic 111–142; BP diastolic 60–70; PULSE 75–95; RESP 20–24; TEMP 98–99.9; O2SAT 94–99
[2017-11-11] MEDS: INSULIN DETEMIR 100 UNITS/ML VIAL SQ SCH ×3 (00:14→23:41)
[2017-11-11] MEDS: AMOXICIL-CLAV 600 MG/5 ML LIQ 125 ML BTL PO SCH ×3 (00:15→23:44)
[2017-11-11] MEDS: INSULIN NovoLIN REGULAR SUPPLEMENTAL SCALE SQ SCH ×5 (00:15→23:40)
[2017-11-11] MEDS: RESP: ALBUTEROL 2.5 MG/IPRATROPIUM 0.5 MG NEB (SCH) NEB ×4 (04:14→22:09)
[2017-11-11] MEDS: HEPARIN SODIUM - SQ 10,000 UNITS/ML VIAL SQ SCH ×3 (06:20→20:41)
[2017-11-11] MEDS: METOCLOPRAMIDE HCL SYRUP 10 MG/10 ML UDC PO SCH ×3 (06:20→20:41)
[2017-11-11] MEDS: hydrALAZINE HCL 10 MG TAB PEG SCH ×3 (06:20→20:41)
[2017-11-11] MEDS: ARTIFICIAL TEARS OPTH SOLN 15 ML BTL EACH EYE SCH ×3 (06:22→20:42)
[2017-11-11] MEDS: SODIUM CHLORIDE 0.9% FLUSH 5 ML FLUSH IV FLUSH SCH ×2 (09:00→20:41)
[2017-11-11] MEDS: CHOLECALCIFEROL (VIT D3) 5000 UNIT CAP PEG SCH (09:45)
[2017-11-11] MEDS: LACTOBACILLUS ACIDOPHILUS TAB PEG SCH ×2 (09:45→20:38)
[2017-11-11] MEDS: DOXAZOSIN MESYLATE 1 MG TAB PEG SCH (09:46)
[2017-11-11] MEDS: ASPIRIN 325 MG TAB DOBHOFF SCH (09:46)
[2017-11-11] MEDS: LANSOPRAZOLE SOLUTAB 30 MG TAB NG SCH (09:46)
[2017-11-11] MEDS: CALCIUM/VITAMIN D 250 MG/125 U TAB PEG SCH ×3 (09:46→17:28)
--- NOTE | 2017-11-11 14:01 | HHI.PR ---
Subjective Remarks Patient seen sitting upright in bedside chair. Nonverbal. Does make eye contact and squeezes with left hand. Right hand edematous. Vital signs reviewed and stable. Discussed with RN, no concerns. Objective Vitals Vital Signs Date Time Temp Pulse Resp B/P (MAP) Pulse Ox O2 Delivery O2 Flow Rate FiO2 11/11/17 08:39 95 T-piece 5.00 28 11/11/17 08:00 98.0 83 24 111/60 (77) 98 11/11/17 04:00 99.0 80 21 130/67 (88) 98 11/11/17 00:00 99.9 75 21 130/67 (88) 99 11/10/17 22:35 94 T-piece 6.00 28 11/10/17 20:00 98.6 75 23 128/69 (88) 97 11/10/17 16:00 99.5 83 20 117/60 (79) 94 I/O 11/10/17 11/10/17 11/10/17 11/11/17 11/11/17 11/11/17 07:00 15:00 23:00 07:00 15:00 23:00 Intake Total 900 ml 1060 ml 1455 ml Output Total 800 ml 700 ml 700 ml Balance 100 ml 360 ml 755 ml Tube Feeding 500 ml 540 ml 795 ml Tube Irrigant 120 ml 60 ml Other 400 ml 400 ml 600 ml Output Urine Total 700 ml 700 ml 700 ml Stool Total 100 ml Bladder Scan Volume Amount # Bowel Movements 1 Result Diagram: 11/09/17 0642 11/09/17 0642 Imaging Last Impressions Chest X-Ray 11/10/17 0600 Signed Impressions: Service Date/Time: Friday, November 10, 2017 04:08 - CONCLUSION: Unchanged cardiomegaly with pulmonary vascular engorgement and bibasilar atelectasis. Deangelo Wren Jr., MD Upper Extremity Ultrasound 11/04/17 0000 Signed Impressions: Service Date/Time: Saturday, November 04, 2017 09:57 - CONCLUSION: No thrombus observed. Subcutaneous edema noted. Deangelo Wren Jr., MD Abdomen X-Ray 11/04/17 0000 Signed Impressions: Service Date/Time: Saturday, November 04, 2017 11:58 - CONCLUSION: Gaseous distention of bowel loops could be ileus but unchanged. Benja Ramsey MD CT Angiography 11/01/17 0000 Signed Impressions: Service Date/Time: Wednesday, November 01, 2017 16:47 - CONCLUSION: No evidence for pulmonary embolism. Please see above. Choco Mustafa MD Thoracentesis 08/05/17 1535 Signed Impressions: Service Date/Time: Saturday, August 05, 2017 16:08 - CONCLUSION: Uncomplicated CT-guided thoracentesis. Sage Adler MD Chest Ultrasound 08/02/17 0000 Signed Impressions: Service Date/Time: Tuesday, August 01, 2017 22:06 - CONCLUSION: 1. Moderate right pleural effusion, as above. Alejo De La Vega MD Hip and Pelvis X-Ray 07/09/17 0000 Signed Impressions: Service Date/Time: Sunday, July 09, 2017 14:04 - CONCLUSION: Anatomic alignment. Ricardo Middleton MD FACR Liver Ultrasound 06/19/17 0000 Signed Impressions: Service Date/Time: June 13:20 - CONCLUSION: 1. Mildly increased echotexture of the liver characteristic of hepatic steatosis. 2. Gallbladder sludge. Obdulio Sam MD Head CT 05/15/17 0000 Signed Impressions: Service Date/Time: May 19:59 - CONCLUSION: 1. 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 2. No bleed or new/acute infarct. Obdulio Simms MD Gall Bladder Ultrasound 05/08/17 0000 Signed Impressions: Service Date/Time: May 08:23 - CONCLUSION: Focally unremarkable appearance of the gallbladder Obdulio Chun MD Abdomen/Pelvis CT 05/07/17 0000 Signed Impressions: Service Date/Time: Sunday, May 07, 2017 13:23 - CONCLUSION: 1. Large left pneumothorax. 2. Bilateral lower lobe consolidation and bilateral moderate size pleural effusions. 3. Significant soft tissue thickening of the right lateral chest wall and left gluteus muscle. 4. Mild ascites. The findings were called to Dr. Carney. Deangelo Zamora MD Chest CT 04/30/17 0000 Signed Impressions: Service Date/Time: Sunday, April 30, 2017 09:20 - CONCLUSION: 1. Bilateral pulmonary infiltrates more pronounced within the lower lobes with tiny bilateral pleural effusions. Material seen filling the lower lobe bronchi bilaterally either related to purulent material or perhaps mucus plugging. Deangelo Wren Jr., MD Carotid Artery Ultrasound 04/24/17 0000 Signed Impressions: Service Date/Time: April 09:45 - CONCLUSION: 1. No hemodynamically significant carotid artery stenosis. Arnie Middleton MD Hip X-Ray 04/21/17 0000 Signed Impressions: Service Date/Time: Friday, April 21, 2017 11:36 - CONCLUSION: Fluoroscopic images during placement of intramedullary siomara left femur. Benja Ramsey MD Objective Remarks GENERAL: Elderly thin female in NAD. SKIN: Warm and dry. HEENT: Normocephalic. No scleral icterus. No injection or drainage. NECK: Trach in place with T-piece. CARDIOVASCULAR: RRR with 1/6 systolic murmur noted. RESPIRATORY: Breath sounds equal bilaterally. No accessory muscle use. GASTROINTESTINAL: Abdomen soft, non-tender, nondistended. EXTREMITIES: RUE edematous. No warmth or erythema. NEUROLOGICAL: Awake. Makes eye contact. Squeezes with left hand only. Diffuse neurologic deficits following stroke. Nonverbal. Medications and IVs Current Medications Medications (Trade) Dose Ordered Sig/Zeferino Route Start Time Stop Time Status Last Admin (Narcan Inj) 0.4 mg UNSCH PRN IV 04/20/17 17:15 (NS Flush) 2 ml BID IV FLUSH 04/24/17 21:00 11/10/17 20:47 (NS Flush) 2 ml UNSCH PRN IV FLUSH 04/24/17 09:30 09/17/17 08:48 (Aspirin) 325 mg DAILY DOBHOFF 04/27/17 09:00 11/11/17 09:46 (Prevacid Odt) 30 mg DAILY NG 05/08/17 09:00 11/11/17 09:46 (Tears Naturale Opth Soln) 1 drop Q8HR EACH EYE 06/12/17 07:15 11/11/17 13:23 (Nitroglycerin 2% Oint) 2 inch Q6H PRN TOPICAL 06/21/17 08:00 06/30/17 14:37 (Heparin Inj) 5,000 units Q8HR SQ 07/15/17 08:00 11/11/17 13:21 (Pill Splitter) 1 ea UNSCH PRN OTHER 09/05/17 11:00 (Apresoline) 10 mg Q8HR PEG 09/24/17 14:00 11/11/17 13:22 (Norvasc) 10 mg DAILY PEG 10/04/17 09:00 11/11/17 09:46 (Oscal-D 250-125) 250 mg TID PEG 10/03/17 13:00 11/11/17 13:22 (Vitamin D3) 5,000 units DAILY PEG 10/04/17 09:00 11/11/17 09:45 (Catapres) 0.1 mg Q6H PRN PEG 10/03/17 12:30 10/08/17 09:03 (Cardura) 1 mg DAILY PEG 10/04/17 09:00 11/11/17 09:46 (Lactinex) 1 tab Q12HR PEG 10/03/17 21:00 11/11/17 09:45 (Miralax) 17 gm DAILY PRN PEG 10/03/17 12:00 (Beneprotein Powder) 1 pack TID PRN G-TUBE 10/03/17 12:00 (Albuterol Neb) 2.5 mg Q2HR NEB PRN NEB 10/03/17 21:45 10/19/17 22:09 (Levemir Inj) 8 units Q12H SQ 10/26/17 12:00 11/11/17 12:00 (Tylenol 650 Mg/ 20 ml Liq) 650 mg Q6H PRN PEG 10/26/17 06:45 (Roxicodone Intensol Liq) 5 mg Q6H PRN PO 10/29/17 11:00 (D50w (Vial) Inj) 50 ml UNSCH PRN IV PUSH 11/04/17 12:30 (Glucagon Inj) 1 mg UNSCH PRN OTHER 11/04/17 12:30 (NovoLIN R SUPPLEMENTAL SCALE) 1 Q6H SQ 11/04/17 12:30 11/11/17 12:30 (Augmentin 600 Mg/5 ml Liq) 600 mg Q12H PO 11/07/17 12:00 11/11/17 13:25 (Reglan Liq) 10 mg Q8HR PO 11/07/17 14:30 11/11/17 13:21 (Duoneb Neb) 1 ampule Q6HR NEB NEB 11/08/17 10:30 11/11/17 08:38 A/P Problem List: (1) Acute ischemic left middle cerebral artery (MCA) stroke ICD Code: I63.512 - Cerebral infarction due to unspecified occlusion or stenosis of left middle cerebral artery Status: Acute (2) Acute respiratory failure ICD Code: J96.00 - Acute respiratory failure, unspecified whether with hypoxia or hypercapnia (3) Right hemiplegia ICD Code: G81.91 - Hemiplegia, unspecified affecting right dominant side Status: Acute (4) Sacral decubitus ulcer ICD Code: L89.159 - Pressure ulcer of sacral region, unspecified stage Status: Chronic (5) HCAP (healthcare-associated pneumonia) ICD Code: J18.9 - Pneumonia, unspecified organism Status: Resolved (6) 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 She underwent ORIF on 04/21/17 and on 04/24 a stroke alert was called as she was found to have right hemiparesis with left gaze. She has a poor prognosis based on her lack of overall recovery over the last 6+ months. Patient has no acute issues, no change in care plan. Fever Low grade fever 100.6 on 11/10 CXR 11/10 showing bibasilar atelectasis which could be the cause Check CBC/BMP, lactic acid in am Continue to monitor Urinary retention No leukocytosis U/A with large leuk esterase but many squamous cells Culture with mixed Gram positive dmitry Started on Augmentin 11/07, stop date 11/[address] Elevated D-dimer Ordered 10/31 for increasing FiO2 demand Since D-dimer elevated, CTA chest obtained to r/o PE which was negative Likely elevated in light of chronic illness RUE U/S negative for DVT - elevate R arm Left MCA stroke 5.5 mm of xitv-ib-uexyg subfalcine herniation, diagnosed 04/24. Was not a candidate for thrombolysis at that time. Increasing edema seen on repeat CT 04/28 with a reduction in midline shift on another repeat on 04/30 Neurologic condition remained poor and she underwent trach 05/15/17 and PEG Persistent right-sided hemiparesis. Previously seen by neurology, signed off Previously seen by neurosurgery, signed off Continue daily ASA Hypertension / CHF Amlodipine 10 mg po daily, Doxazosin 1 mg peg daily, hydralazine 10 mg per per peg q8 hours. Clonidine 0.1 mg q6h prn Echo 10/06/17 LVSF EF = 25-30%. Chronic Tracheostomy /respiratory failure 10/22/2017 Pulmonary toilet, trach care Duo nebs as needed Pulm following, appreciate assistance Large left pneumothorax Resolved Chest tube placed 05/07, discontinued 05/12/17 Hepatitis C LFTs normalized Negative genotype/viral load Diabetes mellitus SSI Novolin R High-dose scale Levemir insulin 8u Q12 FEN PEG tube feeding with Glucerna 1.5 goal 45 cc/hr, per nutrition recommendations DVT prophylaxis Heparin Problem Qualifiers (1) Acute respiratory failure: Qualified Codes: J96.00 - Acute respiratory failure, unspecified whether with hypoxia or hypercapnia (2) Sacral decubitus ulcer: Qualified Codes: L89.152 - Pressure ulcer of sacral region, stage 2 (3) Chronic respiratory failure: Qualified Codes: J96.11 - Chronic respiratory failure with hypoxia Denice Rene PA-C Nov 11, 2017 2:01 pm
--- NOTE | 2017-11-11 19:37 | HHI.PR ---
Subjective Remarks No events overnight. Patient is on TP's with 28% FIO2. . Tolerating tube feeds. Awake, looks around No new complaint reported Objective Vital Signs Vital Signs Date Time Temp Pulse Resp B/P (MAP) Pulse Ox O2 Delivery O2 Flow Rate FiO2 11/11/17 16:00 98.7 95 20 142/70 (94) 99 11/11/17 12:00 98.0 80 20 127/63 (84) 99 11/11/17 08:39 95 T-piece 5.00 28 11/11/17 08:00 98.0 83 24 111/60 (77) 98 11/11/17 04:00 99.0 80 21 130/67 (88) 98 11/11/17 00:00 99.9 75 21 130/67 (88) 99 11/10/17 22:35 94 T-piece 6.00 28 11/10/17 20:00 98.6 75 23 128/69 (88) 97 I/O 11/10/17 11/10/17 11/10/17 11/11/17 11/11/17 11/11/17 07:00 15:00 23:00 07:00 15:00 23:00 Intake Total 900 ml 1060 ml 1455 ml 940 ml Output Total 800 ml 702 ml 700 ml 500 ml Balance 100 ml 358 ml 755 ml 440 ml Tube Feeding 500 ml 540 ml 795 ml 540 ml Tube Irrigant 120 ml 60 ml Other 400 ml 400 ml 600 ml 400 ml Output Urine Total 700 ml 700 ml 700 ml 500 ml Stool Total 100 ml 2 ml Bladder Scan Volume Amount # Bowel Movements 1 1 Result Diagram: 11/09/1742 11/09/17 0642 Objective Remarks GENERAL: Elderly female,NAD SKIN: Warm and dry. HEAD: Normocephalic. EYES: No scleral icterus. No injection or drainage. NECK: Supple, trachea midline. No JVD or lymphadenopathy. + trach CARDIOVASCULAR: Regular rate and rhythm without murmurs, gallops, or rubs. RESPIRATORY: Breath sounds equal bilaterally. No accessory muscle use. GASTROINTESTINAL: Abdomen soft, non-tender, nondistended. MUSCULOSKELETAL: No cyanosis, or edema. BACK: Nontender without obvious deformity. No CVA tenderness. A/P Assessment and Plan Chronic resp failure, ,S/P Trach CVA Pneumonia Calcified Granuloma LLL Pseudomonas Tracheobronchitis, PLAN: Continue with TP's, keep sats >92% Bronchodilators, Pulm toilet, trach care CT chest 11/01: No PE,adenopathy in the right paratracheal, subcarinal and hilar regions with numerous prominent lymph nodes seen. Continue with abx ( Augmentin)monitor for signs of infections ( fever, WBC) follow up on urine cx Continue with tube feeds- Glucerna 1.5 @ 45ml/hr GI/DVT prophylaxis Continue treatment plan Chris Rizo MD Nov 11, 2017 19:37
[2017-11-12] VITALS (7 sets, daily range): BP systolic 125–136; BP diastolic 57–69; PULSE 56–91; RESP 18–22; TEMP 98–99.4; O2SAT 92–99
[2017-11-12] MEDS: RESP: ALBUTEROL 2.5 MG/IPRATROPIUM 0.5 MG NEB (SCH) NEB ×2 (03:49→09:08)
[2017-11-12] MEDS: hydrALAZINE HCL 10 MG TAB PEG SCH ×3 (05:19→21:04)
[2017-11-12] MEDS: METOCLOPRAMIDE HCL SYRUP 10 MG/10 ML UDC PO SCH ×3 (05:19→21:04)
[2017-11-12] MEDS: HEPARIN SODIUM - SQ 10,000 UNITS/ML VIAL SQ SCH ×3 (05:20→21:04)
[2017-11-12] MEDS: INSULIN NovoLIN REGULAR SUPPLEMENTAL SCALE SQ SCH ×3 (05:20→17:42)
[2017-11-12] MEDS: ARTIFICIAL TEARS OPTH SOLN 15 ML BTL EACH EYE SCH ×3 (05:21→21:03)
[2017-11-12 08:21] LABS: AUTOMATED NEUTROPHIL # 6.1 TH/MM3 (1.8-7.7); BASOPHIL # 0.1 TH/MM3 (0-0.2); BASOPHIL % 1.1 % (0.0-2.0); EOSINOPHIL # 0.3 TH/MM3 (0-0.4); EOSINOPHIL % 3.5 % (0.0-4.0); HEMATOCRIT 24.7 % (35.0-46.0); HEMOGLOBIN 8.7 GM/DL (11.6-15.3); LYMPH % 23.4 % (9.0-44.0); LYMPHOCYTE # 2.2 TH/MM3 (1.0-4.8); MEAN CELL VOLUME 99.1 FL (80.0-100.0); MEAN CORPUSCULAR HGB CONC 35.3 % (32.0-36.0); MEAN PLATELET VOLUME 8.2 FL (7.0-11.0); MONO % 7.2 % (0.0-8.0); MONOCYTE # 0.7 TH/MM3 (0-0.9); NEUT % 64.8 % (16.0-70.0); PLATELET COUNT 320 TH/MM3 (150-450); RED CELL DISTRIBUTION WIDTH 16.5 % (11.6-17.2); WHITE BLOOD COUNT 9.4 TH/MM3 (4.0-11.0)
[2017-11-12] MEDS: ASPIRIN 325 MG TAB DOBHOFF SCH (08:32)
[2017-11-12] MEDS: LACTOBACILLUS ACIDOPHILUS TAB PEG SCH ×2 (08:32→20:19)
[2017-11-12] MEDS: CALCIUM/VITAMIN D 250 MG/125 U TAB PEG SCH ×3 (08:32→17:42)
[2017-11-12] MEDS: SODIUM CHLORIDE 0.9% FLUSH 5 ML FLUSH IV FLUSH SCH ×2 (08:32→20:19)
[2017-11-12] MEDS: DOXAZOSIN MESYLATE 1 MG TAB PEG SCH (08:32)
[2017-11-12] MEDS: LANSOPRAZOLE SOLUTAB 30 MG TAB NG SCH (08:32)
[2017-11-12] MEDS: CHOLECALCIFEROL (VIT D3) 5000 UNIT CAP PEG SCH (08:32)
[2017-11-12 08:47] LABS: BICARBONATE 28.4 MEQ/L (21.0-32.0); CALCIUM 9.2 MG/DL (8.5-10.1); CREATININE 0.59 MG/DL (0.50-1.00)
[2017-11-12] MEDS: AMOXICIL-CLAV 600 MG/5 ML LIQ 125 ML BTL PO SCH (12:10)
[2017-11-12] MEDS: INSULIN DETEMIR 100 UNITS/ML VIAL SQ SCH (12:10)
--- NOTE | 2017-11-12 13:39 | HHI.PR ---
Subjective Remarks Patient seen with RN at bedside. RN reports continued loose stools, requesting medications to bulk stools. Previously had DigniShield that was removed a few days ago secondary to anal fissure. Otherwise no other concerns. Vital signs reviewed and stable. Patient remains nonverbal. Objective Vitals Vital Signs Date Time Temp Pulse Resp B/P (MAP) Pulse Ox O2 Delivery O2 Flow Rate FiO2 11/12/17 09:08 97 T-piece 5.00 28 11/12/17 07:55 99.4 65 20 126/66 (86) 97 11/12/17 04:00 98.7 88 20 135/66 (89) 97 11/12/17 00:00 98.6 91 22 131/66 (87) 92 11/11/17 22:09 96 T-piece 6.00 28 11/11/17 20:00 99.7 81 22 128/66 (86) 94 11/11/17 16:00 98.7 95 20 142/70 (94) 99 I/O 11/11/17 11/11/17 11/11/17 11/12/17 11/12/17 11/12/17 07:00 15:00 23:00 07:00 15:00 23:00 Intake Total 1455 ml 940 ml 1615 ml Output Total 700 ml 500 ml 950 ml Balance 755 ml 440 ml 665 ml Tube Feeding 795 ml 540 ml 915 ml Tube Irrigant 60 ml 100 ml Other 600 ml 400 ml 600 ml Output Urine Total 700 ml 500 ml 950 ml # Bowel Movements 1 1 1 Result Diagram: 11/12/1780511/12/17 0806 Objective Remarks GENERAL: Elderly thin female in NAD. SKIN: Warm and dry. HEENT: Normocephalic. No scleral icterus. No injection or drainage. NECK: Trach in place with T-piece. CARDIOVASCULAR: RRR with 1/6 systolic murmur noted. RESPIRATORY: Breath sounds equal bilaterally. No accessory muscle use. GASTROINTESTINAL: Abdomen soft, non-tender, nondistended. Boggy 1cm fissure distal to the anus. EXTREMITIES: RUE edematous. No warmth or erythema. NEUROLOGICAL: Awake. Makes eye contact. Squeezes with left hand only. Diffuse neurologic deficits following stroke. Nonverbal. Medications and IVs Current Medications Medications (Trade) Dose Ordered Sig/Zeferino Route Start Time Stop Time Status Last Admin (Narcan Inj) 0.4 mg UNSCH PRN IV 04/20/17 17:15 (NS Flush) 2 ml BID IV FLUSH 04/24/17 21:00 11/10/17 20:47 (NS Flush) 2 ml UNSCH PRN IV FLUSH 04/24/17 09:30 09/17/17 08:48 (Aspirin) 325 mg DAILY DOBHOFF 04/27/17 09:00 11/12/17 08:32 (Prevacid Odt) 30 mg DAILY NG 05/08/17 09:00 11/12/17 08:32 (Tears Naturale Opth Soln) 1 drop Q8HR EACH EYE 06/12/17 07:15 11/12/17 12:11 (Nitroglycerin 2% Oint) 2 inch Q6H PRN TOPICAL 06/21/17 08:00 06/30/17 14:37 (Heparin Inj) 5,000 units Q8HR SQ 07/15/17 08:00 11/12/17 12:11 (Pill Splitter) 1 ea UNSCH PRN OTHER 09/05/17 11:00 (Apresoline) 10 mg Q8HR PEG 09/24/17 14:00 11/12/17 12:11 (Norvasc) 10 mg DAILY PEG 10/04/17 09:00 11/12/17 08:32 (Oscal-D 250-125) 250 mg TID PEG 10/03/17 13:00 11/12/17 12:11 (Vitamin D3) 5,000 units DAILY PEG 10/04/17 09:00 11/12/17 08:32 (Catapres) 0.1 mg Q6H PRN PEG 10/03/17 12:30 10/08/17 09:03 (Cardura) 1 mg DAILY PEG 10/04/17 09:00 11/12/17 08:32 (Lactinex) 1 tab Q12HR PEG 10/03/17 21:00 11/12/17 08:32 (Miralax) 17 gm DAILY PRN PEG 10/03/17 12:00 (Beneprotein Powder) 1 pack TID PRN G-TUBE 10/03/17 12:00 (Albuterol Neb) 2.5 mg Q2HR NEB PRN NEB 10/03/17 21:45 10/19/17 22:09 (Levemir Inj) 8 units Q12H SQ 10/26/17 12:00 11/12/17 12:10 (Tylenol 650 Mg/ 20 ml Liq) 650 mg Q6H PRN PEG 10/26/17 06:45 (Roxicodone Intensol Liq) 5 mg Q6H PRN PO 10/29/17 11:00 (D50w (Vial) Inj) 50 ml UNSCH PRN IV PUSH 11/04/17 12:30 (Glucagon Inj) 1 mg UNSCH PRN OTHER 11/04/17 12:30 (NovoLIN R SUPPLEMENTAL SCALE) 1 Q6H SQ 11/04/17 12:30 11/12/17 12:10 (Augmentin 600 Mg/5 ml Liq) 600 mg Q12H PO 11/07/17 12:00 11/14/17 11:59 11/12/17 12:10 (Reglan Liq) 10 mg Q8HR PO 11/07/17 14:30 11/12/17 12:11 (Questran Light Pkt) 4 gm BID PRN PEG 11/12/17 13:30 UNV A/P Problem List: (1) Acute ischemic left middle cerebral artery (MCA) stroke ICD Code: I63.512 - Cerebral infarction due to unspecified occlusion or stenosis of left middle cerebral artery Status: Acute (2) Acute respiratory failure ICD Code: J96.00 - Acute respiratory failure, unspecified whether with hypoxia or hypercapnia (3) Right hemiplegia ICD Code: G81.91 - Hemiplegia, unspecified affecting right dominant side Status: Acute (4) Sacral decubitus ulcer ICD Code: L89.159 - Pressure ulcer of sacral region, unspecified stage Status: Chronic (5) HCAP (healthcare-associated pneumonia) ICD Code: J18.9 - Pneumonia, unspecified organism Status: Resolved (6) 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 She underwent ORIF on 04/21/17 and on 04/24 a stroke alert was called as she was found to have right hemiparesis with left gaze. She has a poor prognosis based on her lack of overall recovery over the last 6+ months. Patient has no acute issues, no change in care plan. Fever Low grade fever 100.6 on 11/10 CXR 11/10 showing bibasilar atelectasis which could be the cause Check CBC/BMP, lactic acid in am Continue to monitor Urinary retention No leukocytosis U/A with large leuk esterase but many squamous cells Culture with mixed Gram positive dmitry Started on Augmentin 11/07, stop date 11/[address] Elevated D-dimer Ordered 10/31 for increasing FiO2 demand Since D-dimer elevated, CTA chest obtained to r/o PE which was negative Likely elevated in light of chronic illness RUE U/S negative for DVT - elevate R arm Left MCA stroke 5.5 mm of [id number] subfalcine herniation, diagnosed 04/24. Was not a candidate for thrombolysis at that time. Increasing edema seen on repeat CT 04/28 with a reduction in midline shift on another repeat on 04/30 Neurologic condition remained poor and she underwent trach 05/15/17 and PEG Persistent right-sided hemiparesis. Previously seen by neurology, signed off Previously seen by neurosurgery, signed off Continue daily ASA Hypertension / CHF Amlodipine 10 mg po daily, Doxazosin 1 mg peg daily, hydralazine 10 mg per per peg q8 hours. Clonidine 0.1 mg q6h prn Echo 10/06/17 LVSF EF = 25-30%. Chronic Tracheostomy /respiratory failure 10/22/2017 Pulmonary toilet, trach care Duo nebs as needed Pulm following, appreciate assistance Large left pneumothorax Resolved Chest tube placed 05/07, discontinued 05/12/17 Hepatitis C LFTs normalized Negative genotype/viral load Diabetes mellitus SSI Novolin R High-dose scale Levemir insulin 8u Q12 FEN PEG tube feeding with Glucerna 1.5 goal 45 cc/hr, per nutrition recommendations Loose Stools patient has been checked for Cdiff on multiple occasions, most recently 11/04 Cdiff negative already on lactinex bid 11/12 will add questran bid and monitor for improvement, consider increasing dose as needed Anal Fissure continue wound care DVT prophylaxis Heparin Problem Qualifiers (1) Acute respiratory failure: Qualified Codes: J96.00 - Acute respiratory failure, unspecified whether with hypoxia or hypercapnia (2) Sacral decubitus ulcer: Qualified Codes: L89.152 - Pressure ulcer of sacral region, stage 2 (3) Chronic respiratory failure: Qualified Codes: J96.11 - Chronic respiratory failure with hypoxia Denice Rene PA-C Nov 12, 2017 1:39 pm
--- NOTE | 2017-11-12 19:56 | HHI.PR ---
Subjective Remarks No events overnight. Patient is on TP's with 28% FIO2. . Tolerating tube feeds. Awake, looks around has loose stools Objective Vital Signs Vital Signs Date Time Temp Pulse Resp B/P (MAP) Pulse Ox O2 Delivery O2 Flow Rate FiO2 11/12/17 16:00 98.9 56 20 127/69 (88) 99 11/12/17 12:00 98.0 76 18 136/60 (85) 95 11/12/17 09:08 97 T-piece 5.00 28 11/12/17 07:55 99.4 65 20 126/66 (86) 97 11/12/17 04:00 98.7 88 20 135/66 (89) 97 11/12/17 00:00 98.6 91 22 131/66 (87) 92 11/11/17 22:09 96 T-piece 6.00 28 11/11/17 20:00 99.7 81 22 128/66 (86) 94 I/O 11/11/17 11/11/17 11/11/17 11/12/17 11/12/17 11/12/17 07:00 15:00 23:00 07:00 15:00 23:00 Intake Total 1455 ml 940 ml 1615 ml 1000 ml Output Total 700 ml 500 ml 950 ml 600 ml Balance 755 ml 440 ml 665 ml 400 ml Tube Feeding 795 ml 540 ml 915 ml 800 ml Tube Irrigant 60 ml 100 ml 200 ml Other 600 ml 400 ml 600 ml Output Urine Total 700 ml 500 ml 950 ml 600 ml # Bowel Movements 1 1 1 2 Result Diagram: 11/12/17 0811/12/17 08 Objective Remarks GENERAL: Elderly female,NAD SKIN: Warm and dry. HEAD: Normocephalic. EYES: No scleral icterus. No injection or drainage. NECK: Supple, trachea midline. No JVD or lymphadenopathy. + trach CARDIOVASCULAR: Regular rate and rhythm without murmurs, gallops, or rubs. RESPIRATORY: Breath sounds equal bilaterally. No accessory muscle use. GASTROINTESTINAL: Abdomen soft, non-tender, nondistended. MUSCULOSKELETAL: No cyanosis, or edema. BACK: Nontender without obvious deformity. No CVA tenderness. A/P Assessment and Plan Chronic resp failure, ,S/P Trach CVA Pneumonia Calcified Granuloma LLL Pseudomonas Tracheobronchitis, PLAN: Continue with TP's, keep sats >92% Bronchodilators, Pulm toilet, trach care CT chest 11/01: No PE,adenopathy in the right paratracheal, subcarinal and hilar regions with numerous prominent lymph nodes seen. Continue with abx ( Augmentin)monitor for signs of infections ( fever, WBC) follow up on urine cx Continue with tube feeds- Glucerna 1.5 @ 45ml/hr GI/DVT prophylaxis Continue treatment plan Chris Rizo MD Nov 12, 2017 19:56
[2017-11-13] VITALS (9 sets, daily range): BP systolic 116–134; BP diastolic 55–81; PULSE 47–70; RESP 18–24; TEMP 97.9–98.8; O2SAT 94–100
[2017-11-13] MEDS: AMOXICIL-CLAV 600 MG/5 ML LIQ 125 ML BTL PO SCH ×3 (00:17→23:56)
[2017-11-13] MEDS: INSULIN NovoLIN REGULAR SUPPLEMENTAL SCALE SQ SCH ×5 (00:17→23:56)
[2017-11-13] MEDS: hydrALAZINE HCL 10 MG TAB PEG SCH ×3 (05:50→21:27)
[2017-11-13] MEDS: HEPARIN SODIUM - SQ 10,000 UNITS/ML VIAL SQ SCH ×3 (05:50→21:27)
[2017-11-13] MEDS: ARTIFICIAL TEARS OPTH SOLN 15 ML BTL EACH EYE SCH ×3 (05:51→21:27)
[2017-11-13] MEDS: METOCLOPRAMIDE HCL SYRUP 10 MG/10 ML UDC PO SCH ×3 (05:51→21:27)
[2017-11-13] MEDS: SODIUM CHLORIDE 0.9% FLUSH 5 ML FLUSH IV FLUSH SCH ×2 (09:00→21:00)
[2017-11-13] MEDS: DOXAZOSIN MESYLATE 1 MG TAB PEG SCH (09:09)
[2017-11-13] MEDS: CHOLECALCIFEROL (VIT D3) 5000 UNIT CAP PEG SCH (09:09)
[2017-11-13] MEDS: ASPIRIN 325 MG TAB DOBHOFF SCH (09:09)
[2017-11-13] MEDS: LANSOPRAZOLE SOLUTAB 30 MG TAB NG SCH (09:09)
[2017-11-13] MEDS: CALCIUM/VITAMIN D 250 MG/125 U TAB PEG SCH ×3 (09:09→17:10)
[2017-11-13] MEDS: LACTOBACILLUS ACIDOPHILUS TAB PEG SCH ×2 (09:09→21:27)
[2017-11-13] MEDS: INSULIN DETEMIR 100 UNITS/ML VIAL SQ SCH ×3 (12:54→23:56)
--- NOTE | 2017-11-13 15:58 | RADRPT ---
EXAM DATE/TIME: 11/13/2017 15:36 [facility] COMPARISON: CHEST SINGLE AP, November 10, 2017, 4:08. INDICATIONS : Short of breath. MEDICAL HISTORY : Stroke. Hypertension. Diabetes mellitus type 2. SURGICAL HISTORY : None. ENCOUNTER: Subsequent ACUITY: 1 week PAIN SCORE: Non-responsive. LOCATION: Bilateral chest FINDINGS: Stable tracheostomy. Interval progression of diffuse patchy airspace disease and interstitial promine nce with likely trace left pleural effusion. Cardiac silhouette is enlarged. Pulmonary vascularity is indistinct. Remainder of the exam is unchanged. CONCLUSION: 1. Cardiomegaly with worsening pulmonary edema pattern. 2. Probable trace left pleural effusion. Alejo De La Vega MD on November 13, 2017 at 15:55 Board Certified Radiologist. This report was verified electronically.
--- NOTE | 2017-11-13 16:36 | HHI.PR ---
Subjective Remarks Had 2 episodes of desaturation today, patient appears comfortable. Afebrile, no increased secretions or cough. Discussed with RN. Objective Vitals Vital Signs Date Time Temp Pulse Resp B/P (MAP) Pulse Ox O2 Delivery O2 Flow Rate FiO2 11/13/17 16:00 97.9 54 24 129/73 (91) 99 11/13/17 12:00 98.8 47 20 127/65 (85) 94 11/13/17 08:12 97 T-piece 5.00 28 11/13/17 08:00 98.6 50 18 116/60 (78) 94 11/13/17 04:00 98.5 65 20 124/55 (78) 97 11/13/17 00:58 96 T-piece 5.00 40 11/13/17 00:00 98.7 70 20 131/64 (86) 95 11/12/17 20:00 99.0 68 20 125/57 (79) 96 I/O 11/12/17 11/12/17 11/12/17 11/13/17 11/13/17 11/13/17 07:00 15:00 23:00 07:00 15:00 23:00 Intake Total 1615 ml 1000 ml 1469 ml Output Total 950 ml 600 ml 800 ml Balance 665 ml 400 ml 669 ml Tube Feeding 915 ml 800 ml 969 ml Tube Irrigant 100 ml 200 ml Other 600 ml 500 ml Output Urine Total 950 ml 600 ml 800 ml # Bowel Movements 1 2 1 Result Diagram: 11/12/17 0806 11/12/17 0806 Objective Remarks Not in distress, chronically ill, trach dependent It was equal reactive to light Regular rate and rhythm Bronchial breath sounds Abdomen soft, nontender, decondition in place with brown output Mild hand and lower extremity edema Awake, not alert, does not appear to be oriented. 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 A/P Problem List: (1) Acute ischemic left middle cerebral artery (MCA) stroke ICD Code: I63.512 - Cerebral infarction due to unspecified occlusion or stenosis of left middle cerebral artery Status: Acute (2) Acute respiratory failure ICD Code: J96.00 - Acute respiratory failure, unspecified whether with hypoxia or hypercapnia (3) Right hemiplegia ICD Code: G81.91 - Hemiplegia, unspecified affecting right dominant side Status: Acute (4) Sacral decubitus ulcer ICD Code: L89.159 - Pressure ulcer of sacral region, unspecified stage Status: Chronic (5) HCAP (healthcare-associated pneumonia) ICD Code: J18.9 - Pneumonia, unspecified organism Status: Resolved (6) 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 She underwent ORIF on 04/21/17 and on 04/24 a stroke alert was called as she was found to have right hemiparesis with left gaze. She has a poor prognosis based on her lack of overall recovery over the last 6+ months. Patient has no acute issues, no change in care plan. Shortness of breath/desaturation-chest x-ray done, personally reviewed, has evidence of pulmonary edema, start Lasix 20 mg IV twice a day, check BMP tomorrow. Not on fluids. Fever Low grade fever 100.6 on 11/10 CXR 11/10 showing bibasilar atelectasis which could be the cause Check CBC/BMP, lactic acid in am Continue to monitor Urinary retention No leukocytosis U/A with large leuk esterase but many squamous cells Culture with mixed Gram positive dmitry Started on Augmentin 11/07, stop date 11/[address] Elevated D-dimer Ordered 10/31 for increasing FiO2 demand Since D-dimer elevated, CTA chest obtained to r/o PE which was negative Likely elevated in light of chronic illness RUE U/S negative for DVT - elevate R arm Left MCA stroke 5.5 mm of [id number] subfalcine herniation, diagnosed 04/24. Was not a candidate for thrombolysis at that time. Increasing edema seen on repeat CT 04/28 with a reduction in midline shift on another repeat on 04/30 Neurologic condition remained poor and she underwent trach 05/15/17 and PEG Persistent right-sided hemiparesis. Previously seen by neurology, signed off Previously seen by neurosurgery, signed off Continue daily ASA Hypertension / CHF Amlodipine 10 mg po daily, Doxazosin 1 mg peg daily, hydralazine 10 mg per per peg q8 hours. Clonidine 0.1 mg q6h prn Echo 10/06/17 LVSF EF = 25-30%. Chronic Tracheostomy /respiratory failure 10/22/2017 Pulmonary toilet, trach care Duo nebs as needed Pulm following, appreciate assistance Large left pneumothorax Resolved Chest tube placed 05/07, discontinued 05/12/17 Hepatitis C LFTs normalized Negative genotype/viral load Diabetes mellitus SSI Novolin R High-dose scale Levemir insulin 8u Q12 FEN PEG tube feeding with Glucerna 1.5 goal 45 cc/hr, per nutrition recommendations Loose Stools patient has been checked for Cdiff on multiple occasions, most recently 11/04 Cdiff negative already on lactinex bid 11/12 will add questran bid and monitor for improvement, consider increasing dose as needed Anal Fissure continue wound care DVT prophylaxis Heparin Discharge Planning Aggressive therapy, full code per palliative. Needs placement Problem Qualifiers (1) Acute respiratory failure: Qualified Codes: J96.00 - Acute respiratory failure, unspecified whether with hypoxia or hypercapnia (2) Sacral decubitus ulcer: Qualified Codes: L89.152 - Pressure ulcer of sacral region, stage 2 (3) Chronic respiratory failure: Qualified Codes: J96.11 - Chronic respiratory failure with hypoxia Roderick Turcios MD Nov 13, 2017 16:36
[2017-11-13] MEDS: FUROSEMIDE 20 MG/2 ML VIAL IV PUSH SCH (17:10)
--- NOTE | 2017-11-13 19:04 | HHI.PR ---
Subjective Remarks No events overnight. Patient is on TP's with 28% FIO2. . Tolerating tube feeds. Awake, looks around has loose stools had episode of desaturation Recovered quickly Now sat 100 % Objective Vital Signs Vital Signs Date Time Temp Pulse Resp B/P (MAP) Pulse Ox O2 Delivery O2 Flow Rate FiO2 11/13/17 16:00 97.9 54 24 129/73 (91) 99 11/13/17 12:00 98.8 47 20 127/65 (85) 94 11/13/17 08:12 97 T-piece 5.00 28 11/13/17 08:00 98.6 50 18 116/60 (78) 94 11/13/17 04:00 98.5 65 20 124/55 (78) 97 11/13/17 00:58 96 T-piece 5.00 40 11/13/17 00:00 98.7 70 20 131/64 (86) 95 11/12/17 20:00 99.0 68 20 125/57 (79) 96 I/O 11/12/17 11/12/17 11/12/17 11/13/17 11/13/17 11/13/17 07:00 15:00 23:00 07:00 15:00 23:00 Intake Total 1615 ml 1000 ml 1469 ml Output Total 950 ml 600 ml 800 ml Balance 665 ml 400 ml 669 ml Tube Feeding 915 ml 800 ml 969 ml Tube Irrigant 100 ml 200 ml Other 600 ml 500 ml Output Urine Total 950 ml 600 ml 800 ml # Bowel Movements 1 2 1 Result Diagram: 11/12/1780511/12/17 08 Objective Remarks GENERAL: Elderly female,NAD SKIN: Warm and dry. HEAD: Normocephalic. EYES: No scleral icterus. No injection or drainage. NECK: Supple, trachea midline. No JVD or lymphadenopathy. + trach CARDIOVASCULAR: Regular rate and rhythm without murmurs, gallops, or rubs. RESPIRATORY: Breath sounds equal bilaterally. No accessory muscle use. GASTROINTESTINAL: Abdomen soft, non-tender, nondistended. MUSCULOSKELETAL: No cyanosis, or edema. BACK: Nontender without obvious deformity. No CVA tenderness. A/P Assessment and Plan Chronic resp failure, ,S/P Trach CVA Pneumonia Calcified Granuloma LLL Pseudomonas Tracheobronchitis, PLAN: Continue with TP's, keep sats >92% Bronchodilators, Pulm toilet, trach care CT chest 11/01: No PE,adenopathy in the right paratracheal, subcarinal and hilar regions with numerous prominent lymph nodes seen. Continue with abx ( Augmentin)monitor for signs of infections ( fever, WBC) follow up on urine cx Continue with tube feeds- Glucerna 1.5 @ 45ml/hr GI/DVT prophylaxis Continue treatment plan. [facility] RN at [facility],Chris Hester MD Nov 13, 2017 19:04
[2017-11-14] VITALS (8 sets, daily range): BP systolic 96–126; BP diastolic 51–70; PULSE 57–78; RESP 18–20; TEMP 98.4–99.9; O2SAT 93–100
[2017-11-14] MEDS: ARTIFICIAL TEARS OPTH SOLN 15 ML BTL EACH EYE SCH ×3 (04:18→20:27)
[2017-11-14] MEDS: hydrALAZINE HCL 10 MG TAB PEG SCH ×4 (04:19→20:26)
[2017-11-14] MEDS: METOCLOPRAMIDE HCL SYRUP 10 MG/10 ML UDC PO SCH ×3 (04:19→20:26)
[2017-11-14] MEDS: HEPARIN SODIUM - SQ 10,000 UNITS/ML VIAL SQ SCH ×3 (04:19→20:27)
[2017-11-14 05:05] LABS: BICARBONATE 30.2 MEQ/L (21.0-32.0); CALCIUM 9.2 MG/DL (8.5-10.1); CREATININE 0.45 MG/DL (0.50-1.00)
[2017-11-14] MEDS: INSULIN NovoLIN REGULAR SUPPLEMENTAL SCALE SQ SCH ×3 (05:08→17:26)
[2017-11-14] MEDS: DOXAZOSIN MESYLATE 1 MG TAB PEG SCH (08:31)
[2017-11-14] MEDS: LANSOPRAZOLE SOLUTAB 30 MG TAB NG SCH (08:31)
[2017-11-14] MEDS: LACTOBACILLUS ACIDOPHILUS TAB PEG SCH ×2 (08:31→20:26)
[2017-11-14] MEDS: CHOLECALCIFEROL (VIT D3) 5000 UNIT CAP PEG SCH (08:31)
[2017-11-14] MEDS: ASPIRIN 325 MG TAB DOBHOFF SCH (08:31)
[2017-11-14] MEDS: CALCIUM/VITAMIN D 250 MG/125 U TAB PEG SCH ×3 (08:31→17:26)
[2017-11-14] MEDS: FUROSEMIDE 20 MG/2 ML VIAL IV PUSH SCH (08:32)
[2017-11-14] MEDS: SODIUM CHLORIDE 0.9% FLUSH 5 ML FLUSH IV FLUSH SCH ×2 (08:46→20:49)
--- NOTE | 2017-11-14 08:49 | HHI.PR ---
Subjective Remarks No events overnight. Patient is on TP's with 28% FIO2. . Tolerating tube feeds. Awake, looks around had episode of desaturation No diarrhoea Had 1 formed stool Objective Vital Signs Vital Signs Date Time Temp Pulse Resp B/P (MAP) Pulse Ox O2 Delivery O2 Flow Rate FiO2 11/14/17 04:00 98.8 57 20 112/70 (84) 96 11/14/17 00:27 99.9 65 20 107/54 (71) 93 11/13/17 22:22 97 T-piece 5.00 28 11/13/17 20:00 98.4 68 20 134/81 (98) 100 11/13/17 16:00 97.9 54 24 129/73 (91) 99 11/13/17 12:00 98.8 47 20 127/65 (85) 94 I/O 11/13/17 11/13/17 11/13/17 11/14/17 11/14/17 11/14/17 07:00 15:00 23:00 07:00 15:00 23:00 Intake Total 1469 ml 940 ml 1325 ml Output Total 800 ml 825 ml Balance 669 ml 940 ml 500 ml Tube Feeding 969 ml 540 ml 825 ml Other 500 ml 400 ml 500 ml Output Urine Total 800 ml 825 ml # Bowel Movements 1 2 1 Result Diagram: 11/12/17 0806 11/14/17 0418 Objective Remarks GENERAL: Elderly female,NAD SKIN: Warm and dry. HEAD: Normocephalic. EYES: No scleral icterus. No injection or drainage. NECK: Supple, trachea midline. No JVD or lymphadenopathy. + trach CARDIOVASCULAR: Regular rate and rhythm without murmurs, gallops, or rubs. RESPIRATORY: Breath sounds equal bilaterally. No accessory muscle use. GASTROINTESTINAL: Abdomen soft, non-tender, nondistended. MUSCULOSKELETAL: No cyanosis, or edema. BACK: Nontender without obvious deformity. No CVA tenderness. A/P Assessment and Plan Chronic resp failure, ,S/P Trach CVA Pneumonia Calcified Granuloma LLL Pseudomonas Tracheobronchitis, PLAN: Continue with TP's, keep sats >92% Bronchodilators, Pulm toilet, trach care CT chest 11/01: No PE,adenopathy in the right paratracheal, subcarinal and hilar regions with numerous prominent lymph nodes seen. Continue with abx ( Augmentin)monitor for signs of infections ( fever, WBC) follow up on urine cx Continue with tube feeds- Glucerna 1.5 @ 45ml/hr GI/DVT prophylaxis Continue treatment plan. [facility] RN at Chris Rizo MD Nov 14, 2017 08:49
[2017-11-14] MEDS: INSULIN DETEMIR 100 UNITS/ML VIAL SQ SCH (11:31)
--- NOTE | 2017-11-14 14:47 | HHI.PR ---
Subjective Remarks Had another episode of desaturation, needing suction. Good urine output. Not congested. Afebrile. BMP reviewed Objective Vitals Vital Signs Date Time Temp Pulse Resp B/P (MAP) Pulse Ox O2 Delivery O2 Flow Rate FiO2 11/14/17 12:00 98.6 65 18 112/56 (74) 97 11/14/17 09:42 97 T-piece 5.00 28 11/14/17 08:00 98.6 75 20 116/58 (77) 98 11/14/17 04:00 98.8 57 20 112/70 (84) 96 11/14/17 00:27 99.9 65 20 107/54 (71) 93 11/13/17 22:22 97 T-piece 5.00 28 11/13/17 20:00 98.4 68 20 134/81 (98) 100 11/13/17 16:00 97.9 54 24 129/73 (91) 99 I/O 11/13/17 11/13/17 11/13/17 11/14/17 11/14/17 11/14/17 07:00 15:00 23:00 07:00 15:00 23:00 Intake Total 1469 ml 940 ml 1325 ml Output Total 800 ml 825 ml Balance 669 ml 940 ml 500 ml Tube Feeding 969 ml 540 ml 825 ml Other 500 ml 400 ml 500 ml Output Urine Total 800 ml 825 ml # Bowel Movements 1 2 1 Result Diagram: 11/12/17 0806 11/14/17 0418 Objective Remarks Not in distress, chronically ill, trach dependent It was equal reactive to light Regular rate and rhythm Bronchial breath sounds, no crackles, no wheezing. Abdomen soft, nontender, decondition in place with brown output Mild hand and lower extremity edema Awake, not alert, does not appear to be oriented. 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 A/P Problem List: (1) Acute ischemic left middle cerebral artery (MCA) stroke ICD Code: I63.512 - Cerebral infarction due to unspecified occlusion or stenosis of left middle cerebral artery Status: Acute (2) Acute respiratory failure ICD Code: J96.00 - Acute respiratory failure, unspecified whether with hypoxia or hypercapnia (3) Right hemiplegia ICD Code: G81.91 - Hemiplegia, unspecified affecting right dominant side Status: Acute (4) Sacral decubitus ulcer ICD Code: L89.159 - Pressure ulcer of sacral region, unspecified stage Status: Chronic (5) HCAP (healthcare-associated pneumonia) ICD Code: J18.9 - Pneumonia, unspecified organism Status: Resolved (6) 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 She underwent ORIF on 04/21/17 and on 04/24 a stroke alert was called as she was found to have right hemiparesis with left gaze. She has a poor prognosis based on her lack of overall recovery over the last 6+ months. Patient has no acute issues, no change in care plan. Shortness of breath/desaturation-chest x-ray done 11/13/2017, personally reviewed , has evidence of pulmonary edema, started on Lasix 20 mg IV twice a day, BMP stable, not on fluids. Had another episode of desaturation today but corrected with suctioning. Will reduce to Lasix 20 mg IV daily until tomorrow and possibly discontinue or switch to oral if needed. Recheck BMP tomorrow. Urinary retention No leukocytosis U/A with large leuk esterase but many squamous cells Culture grew Aerococcus, finished Augmentin November 07 - November 14. Leavitt in place. Elevated D-dimer Ordered 10/31 for increasing FiO2 demand Since D-dimer elevated, CTA chest obtained to r/o PE which was negative Likely elevated in light of chronic illness RUE U/S negative for DVT - elevate R arm Left MCA stroke 5.5 mm of [id number] subfalcine herniation, diagnosed 04/24. Was not a candidate for thrombolysis at that time. Increasing edema seen on repeat CT 04/28 with a reduction in midline shift on another repeat on 04/30 Neurologic condition remained poor and she underwent trach 05/15/17 and PEG Persistent right-sided hemiparesis. Previously seen by neurology, signed off Previously seen by neurosurgery, signed off Continue daily ASA Hypertension / CHF Amlodipine 10 mg po daily, Doxazosin 1 mg peg daily, hydralazine 10 mg per per peg q8 hours. Clonidine 0.1 mg q6h prn Echo 10/06/17 LVSF EF = 25-30%. Chronic Tracheostomy /respiratory failure 10/22/2017 Pulmonary toilet, trach care Duo nebs as needed Pulm following, appreciate assistance Large left pneumothorax Resolved Chest tube placed 05/07, discontinued 05/12/17 Hepatitis C LFTs normalized Negative genotype/viral load Diabetes mellitus SSI Novolin R High-dose scale Levemir insulin 8u Q12 FEN PEG tube feeding with Glucerna 1.5 goal 45 cc/hr, per nutrition recommendations Loose Stools patient has been checked for Cdiff on multiple occasions, most recently 11/04 Cdiff negative already on lactinex bid 11/12 will add questran bid and monitor for improvement, consider increasing dose as needed Anal Fissure continue wound care DVT prophylaxis Heparin Discharge Planning Aggressive therapy, full code per palliative. Needs placement Problem Qualifiers (1) Acute respiratory failure: Qualified Codes: J96.00 - Acute respiratory failure, unspecified whether with hypoxia or hypercapnia (2) Sacral decubitus ulcer: Qualified Codes: L89.152 - Pressure ulcer of sacral region, stage 2 (3) Chronic respiratory failure: Qualified Codes: J96.11 - Chronic respiratory failure with hypoxia Roderick Turcios MD Nov 14, 2017 14:47
[2017-11-15] VITALS (7 sets, daily range): BP systolic 138–151; BP diastolic 69–79; PULSE 61–80; RESP 18; TEMP 97.7–98.9; O2SAT 98–99
[2017-11-15] MEDS: INSULIN DETEMIR 100 UNITS/ML VIAL SQ SCH ×2 (00:01→12:00)
[2017-11-15] MEDS: INSULIN NovoLIN REGULAR SUPPLEMENTAL SCALE SQ SCH ×4 (00:10→18:24)
[2017-11-15] MEDS: hydrALAZINE HCL 10 MG TAB PEG SCH ×3 (05:18→22:00)
[2017-11-15] MEDS: ARTIFICIAL TEARS OPTH SOLN 15 ML BTL EACH EYE SCH ×3 (05:18→22:00)
[2017-11-15] MEDS: HEPARIN SODIUM - SQ 10,000 UNITS/ML VIAL SQ SCH ×3 (05:18→22:00)
[2017-11-15] MEDS: METOCLOPRAMIDE HCL SYRUP 10 MG/10 ML UDC PO SCH ×3 (05:18→22:00)
[2017-11-15 08:20] LABS: BICARBONATE 31.7 MEQ/L (21.0-32.0); CALCIUM 8.8 MG/DL (8.5-10.1); CREATININE 0.47 MG/DL (0.50-1.00)
[2017-11-15] MEDS: CALCIUM/VITAMIN D 250 MG/125 U TAB PEG SCH ×3 (09:00→18:00)
[2017-11-15] MEDS: LANSOPRAZOLE SOLUTAB 30 MG TAB NG SCH (09:00)
[2017-11-15] MEDS: SODIUM CHLORIDE 0.9% FLUSH 5 ML FLUSH IV FLUSH SCH (09:00)
[2017-11-15] MEDS ORDERED: FUROSEMIDE 20 MG/2 ML VIAL IV PUSH SCH (09:00)
[2017-11-15] MEDS: LACTOBACILLUS ACIDOPHILUS TAB PEG SCH ×2 (09:00→21:00)
[2017-11-15] MEDS: DOXAZOSIN MESYLATE 1 MG TAB PEG SCH (09:00)
[2017-11-15] MEDS: ASPIRIN 325 MG TAB DOBHOFF SCH (09:00)
[2017-11-15] MEDS: CHOLECALCIFEROL (VIT D3) 5000 UNIT CAP PEG SCH (09:00)
--- NOTE | 2017-11-15 09:23 | HHI.PR ---
Subjective Remarks Review of systems unobtainable Discussed with RN Patient remains nonverbal opens eyes Objective Vitals Vital Signs Date Time Temp Pulse Resp B/P (MAP) Pulse Ox O2 Delivery O2 Flow Rate FiO2 11/15/17 08:36 99 28 11/15/17 08:31 98.0 61 18 140/72 (94) 99 11/15/17 04:20 98.9 69 18 141/70 (93) 99 11/15/17 00:00 97.7 76 18 139/70 (93) 98 11/14/17 23:09 100 T-piece 6.00 11/14/17 20:00 98.4 76 18 126/60 (82) 95 11/14/17 16:00 98.9 78 18 126/65 (85) 99 11/14/17 12:00 98.6 65 18 112/56 (74) 97 11/14/17 09:42 97 T-piece 5.00 28 I/O 11/14/17 11/14/17 11/14/17 11/15/17 11/15/17 11/15/17 07:00 15:00 23:00 07:00 15:00 23:00 Intake Total 1325 ml 835 ml 795 ml Output Total 825 ml 900 ml 900 ml Balance 500 ml -65 ml -105 ml Tube Feeding 825 ml 575 ml 395 ml Other 500 ml 260 ml 400 ml Output Urine Total 825 ml 900 ml 900 ml # Bowel Movements 1 2 2 Result Diagram: 11/12/17 0806 11/15/17 0733 Other Results Laboratory Tests Test 11/14/17 04:18 11/15/17 07:33 Blood Urea Nitrogen 29 MG/DL 25 MG/DL Creatinine 0.45 MG/DL 0.47 MG/DL Random Glucose 130 MG/DL 165 MG/DL Calcium Level 9.2 MG/DL 8.8 MG/DL Sodium Level 137 MEQ/L 139 MEQ/L Potassium Level 4.4 MEQ/L 4.3 MEQ/L Chloride Level 99 MEQ/L 100 MEQ/L Carbon Dioxide Level 30.2 MEQ/L 31.7 MEQ/L Anion Gap 8 MEQ/L 7 MEQ/L Estimat Glomerular Filtration Rate 136 ML/MIN 129 ML/MIN Imaging Last Impressions Chest X-Ray 11/13/17 0000 Signed Impressions: Service Date/Time: October 15:36 - CONCLUSION: 1. Cardiomegaly with worsening pulmonary edema pattern. 2. Probable trace left pleural effusion. Alejo De La Vega MD Upper Extremity Ultrasound 11/04/17 0000 Signed Impressions: Service Date/Time: Saturday, November 04, 2017 09:57 - CONCLUSION: No thrombus observed. Subcutaneous edema noted. Deangelo Wren Jr., MD Abdomen X-Ray 11/04/17 0000 Signed Impressions: Service Date/Time: Saturday, November 04, 2017 11:58 - CONCLUSION: Gaseous distention of bowel loops could be ileus but unchanged. Benja Ramsey MD CT Angiography 11/01/17 0000 Signed Impressions: Service Date/Time: Wednesday, November 01, 2017 16:47 - CONCLUSION: No evidence for pulmonary embolism. Please see above. Choco Mustafa MD Thoracentesis 08/05/17 1535 Signed Impressions: Service Date/Time: Saturday, August 05, 2017 16:08 - CONCLUSION: Uncomplicated CT-guided thoracentesis. Sage Adler MD Chest Ultrasound 08/02/17 0000 Signed Impressions: Service Date/Time: Tuesday, August 01, 2017 22:06 - CONCLUSION: 1. Moderate right pleural effusion, as above. Alejo De La Vega MD Hip and Pelvis X-Ray 07/09/17 0000 Signed Impressions: Service Date/Time: Sunday, July 09, 2017 14:04 - CONCLUSION: Anatomic alignment. Ricardo Middleton MD FACR Liver Ultrasound 06/19/17 0000 Signed Impressions: Service Date/Time: June 13:20 - CONCLUSION: 1. Mildly increased echotexture of the liver characteristic of hepatic steatosis. 2. Gallbladder sludge. Obdulio Sam MD Head CT 05/15/17 0000 Signed Impressions: Service Date/Time: May 19:59 - CONCLUSION: 1. 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 2. No bleed or new/acute infarct. Obdulio Simms MD Gall Bladder Ultrasound 05/08/17 0000 Signed Impressions: Service Date/Time: May 08:23 - CONCLUSION: Focally unremarkable appearance of the gallbladder Obdulio Chun MD Abdomen/Pelvis CT 05/07/17 0000 Signed Impressions: Service Date/Time: Sunday, May 07, 2017 13:23 - CONCLUSION: 1. Large left pneumothorax. 2. Bilateral lower lobe consolidation and bilateral moderate size pleural effusions. 3. Significant soft tissue thickening of the right lateral chest wall and left gluteus muscle. 4. Mild ascites. The findings were called to Dr. Carney. Deangelo Zamora MD Chest CT 04/30/17 0000 Signed Impressions: Service Date/Time: Sunday, April 30, 2017 09:20 - CONCLUSION: 1. Bilateral pulmonary infiltrates more pronounced within the lower lobes with tiny bilateral pleural effusions. Material seen filling the lower lobe bronchi bilaterally either related to purulent material or perhaps mucus plugging. Deangelo Wren Jr., MD Carotid Artery Ultrasound 04/24/17 0000 Signed Impressions: Service Date/Time: April 09:45 - CONCLUSION: 1. No hemodynamically significant carotid artery stenosis. Arnie Middleton MD Hip X-Ray 04/21/17 0000 Signed Impressions: Service Date/Time: Friday, April 21, 2017 11:36 - CONCLUSION: Fluoroscopic images during placement of intramedullary siomara left femur. Benja Ramsey MD Objective Remarks GENERAL: Awake follows no commands left side is flaccid can move right side review of systems is unobtainable SKIN: Warm and dry. HEAD: Atraumatic. Normocephalic. EYES: Pupils equal and round. No scleral icterus. No injection or drainage. ENT: No nasal bleeding or discharge. Mucous membranes pink and moist. NECK: Trachea midline. No JVD. Supple tracheostomy in place CARDIOVASCULAR: Regular rate and rhythm. S1-S2 no S3 or S4 RESPIRATORY: No accessory muscle use. Clear to auscultation. Breath sounds equal bilaterally. GASTROINTESTINAL: Abdomen soft, non-tender, nondistended. Hepatic and splenic margins not palpable. PEG tube in place MUSCULOSKELETAL: Extremities without clubbing, cyanosis, or edema. No obvious deformities. NEUROLOGICAL: Awake and alert. No obvious cranial nerve deficits. Motor grossly within normal limits. Moves left side does not follow commands. No speech. PSYCHIATRIC: INAppropriate mood and affect; insight and judgment ABnormal. Procedures PEG tube Medications and IVs Current Medications Potassium Chloride 100 ml @ As Directed STK-MED ONCE .ROUTE Last administered on 04/20/17t 13:58; Start 04/20/17 at 13:50; Stop 04/20/17 at 13:51; Status DC Sodium Chloride 1,000 ml @ 250 mls/hr Q4H IV ; Start 04/20/17 at 14:30; Stop at 21:57; Status DC Dextrose/Sodium Chloride 1,000 ml @ 200 mls/hr Q5H IV Last administered on t 14:30; Start 04/20/17 at 14:30; Stop 04/20/17 at 21:57; Status DC Miscellaneous Medication ([facility] [place] [facility] [place] Mix all IV Medications in Nor... UNSCH .XX ; Start 04/20/17 at 14:30; Stop 04/20/17 at 21:57; Status DC Potassium Chloride 100 ml @ 100 mls/hr Q1H PRN IV SEE PROTOCOL; Start at 14:30; Stop 04/20/17 at 21:57; Status DC Potassium Chloride 100 ml @ 50 mls/hr Q2H PRN IV SEE PROTOCOL; Start 04/20/17 at 14:30; Stop 04/20/17 at 21:57; Status DC Potassium Chloride 100 ml @ 100 mls/hr Q1H PRN IV SEE PROTOCOL; Start at 14:30; Stop 04/20/17 at 21:57; Status DC Potassium Chloride 100 ml @ 100 mls/hr Q1H PRN IV SEE PROTOCOL TABLE; Start at 14:30; Stop 04/20/17 at 21:57; Status DC Potassium Chloride 100 ml @ 50 mls/hr Q2H PRN IV SEE PROTOCOL; Start 04/20/17 at 14:30; Stop 04/20/17 at 21:57; Status DC Potassium Chloride 100 ml @ 50 mls/hr Q2H PRN IV SEE PROTOCOL TABLE; Start at 14:30; Stop 04/20/17 at 21:57; Status DC Potassium Chloride 100 ml @ 50 mls/hr Q2H PRN IV SEE PROTOCOL TABLE; Start at 14:30; Stop 04/20/17 at 21:57; Status DC Potassium Chloride 100 ml @ 50 mls/hr Q2H PRN IV SEE PROTOCOL TABLE; Start at 14:30; Stop 04/20/17 at 21:57; Status DC Insulin Human Regular (NovoLIN R INJ) 0.1 units/ Kg actual body weight BOLUS ONCE IV PUSH Last administered on 04/20/17 15:51; Start 04/20/17 at 14:30; Stop 04/20/17 at 14:31; Status DC Insulin Human Regular 100 units/ Sodium Chloride 100 ml @ 0 mls/hr TITRATE IV ; Start 04/20/17 at 14:30; Stop 04/20/17 at 21:57; Status DC Dextrose (D50w (Vial) Inj) 50 ml Q10M PRN IV PUSH HYPOGLYCEMIA DKA -SEE COMMENTS; Start 04/20/17 at 14:30; Stop 04/20/17 at 21:57; Status DC Sodium Bicarbonate (Sodium Bicarbonate 8.4% Inj) 100 meq STAT PRN IV SEE LABEL COMMENTS; Start 04/20/17 at 14:30; Stop 04/20/17 at 21:57; Status DC Sodium Bicarbonate (Sodium Bicarbonate 8.4% Inj) 50 meq STAT PRN IV SEE LABEL COMMENTS; Start 04/20/17 at 14:30; Stop 04/20/17 at 21:57; Status DC Sodium Phosphate 15 mmol/Sodium Chloride 105 ml @ 25 mls/hr UNSCH PRN IV SEE PROTOCOL TABLE; Start 04/20/17 at 14:30; Stop 04/20/17 at 21:57; Status DC Acetaminophen (Tylenol) 650 mg Q6H PRN PO PAIN SCALE 1 TO 2 Last administered on 05/03/17 00:27; Start 04/20/17 at 14:30; Stop 05/07/17 at 12:46; Status DC Ondansetron HCl (Zofran Inj) 4 mg Q6H PRN IV PUSH NAUSEA AND VOMITING Last administered on 04/30/17 02:28; Start 04/20/17 at 15:00; Stop 08/04/17 at 16:22 ; Status DC Heparin Sodium (Porcine) (Heparin Inj) 5,000 units Q12HR SQ Last administered on 04/20/17 21:00; Start 04/20/17 at 21:00; Stop 04/21/17 at 11:44; Status DC Morphine Sulfate (Morphine Inj) 1 mg Q3H PRN IV Pain 3-5; if unable to take PO Last administered on 04/28/17 18:15; Start 04/20/17 at 17:15; Stop 05/19/17 at 07:55; Status DC Morphine Sulfate (Morphine Inj) 2 mg Q3H PRN IV Pain 6-10;if unable to take PO Last administered on 04/30/17 02:29; Start 04/20/17 at 17:15; Stop 05/19/17 at 07:55; Status DC Naloxone HCl (Narcan Inj) 0.4 mg UNSCH PRN IV SEE LABEL COMMENTS; Start at 17:15 Senna/Docusate Sodium (Nalini-Colace) 1 tab BID PO Last administered on 05/07/17 10:30; Start 04/20/17 at 21:00; Stop 05/07/17 at 12:50; Status DC Magnesium Hydroxide (Milk Of Magnesia Liq) 30 ml Q12H PRN PO MILD - MODERATE CONSTIPATION; Start 04/20/17 at 20:30; Stop 07/26/17 at 16:12; Status DC Sennosides (Senokot) 17.2 mg Q12H PRN PO MODERATE - SEVERE CONSTIPATION Last administered on 04/23/17 22:55; Start 04/20/17 at 20:30; Stop 05/19/17 at 08:05 ; Status DC Bisacodyl (Dulcolax Supp) 10 mg DAILY PRN RECTAL SEVERE CONSITIPATION; Start at 20:30; Stop 07/26/17 at 16:12; Status DC Lactulose (Lactulose Liq) 30 ml DAILY PRN PO SEVERE CONSITIPATION; Start at 20:30; Stop 05/05/17 at 09:24; Status DC Dextrose (D50w (Vial) Inj) 50 ml UNSCH PRN IV HYPOGLYCEMIA-SEE COMMENTS; Start 04/20/17 at 21:45; Stop 04/24/17 at 09:34; Status DC Glucagon (Glucagon Inj) 1 mg UNSCH PRN OTHER HYPOGLYCEMIA-SEE COMMENTS; Start 04/20/17 at 21:45; Stop 04/24/17 at 09:34; Status DC Insulin Aspart (NovoLOG SUPPLEMENTAL SCALE) 1 ACHS SLIDING SCALE SQ Last administered on 04/24/17 06:43; Start 04/21/17 at 07:00; Stop 04/24/17 at 09:35 ; Status DC Calcium Carbonate (Oscal) 500 mg ONCE ONCE PO ; Start 04/21/17 at 07:00; Stop 04/21/17 at 07:11; Status DC Sodium Phosphate 15 mmol/Sodium Chloride 155 ml @ 38.75 mls/ hr ONCE ONCE IV Last administered on 04/21/17 09:32; Start 04/21/17 at 07:00; Stop 04/21/17 at 10:59; Status DC Sodium Chloride 1,000 ml @ 75 mls/hr [id number] IV ; Start 04/21/17 at 09:03; Stop 04/21/17 at 09:03; Status DC Sodium Chloride 1,000 ml @ 100 mls/hr Q10H IV Last administered on 04/23/17 02:15; Start 04/21/17 at 09:03; Stop 04/24/17 at 09:12; Status DC Cefazolin Sodium (Ancef Inj) 1,000 mg STK-MED ONCE .ROUTE Last administered on 04/21/17 10:38; Start 04/21/17 at 10:30; Stop 04/21/17 at 10:31; Status DC Gentamicin Sulfate (Gentamicin Inj) 160 mg STK-MED ONCE .ROUTE Last administered on 04/21/17 11:36; Start 04/21/17 at 10:30; Stop 04/21/17 at 10:31 ; Status DC Vancomycin HCl (Vancomycin Inj) 1,000 mg STK-MED ONCE .ROUTE Last administered on 04/21/17 11:04; Start 04/21/17 at 10:40; Stop 04/21/17 at 10:41; Status DC Bupivacaine HCl/ Epinephrine Bitart (Sensorcaine-Epinephrine 0.25% Inj) 50 ml STK-MED ONCE .ROUTE Last administered on 04/21/17 11:39; Start 04/21/17 at 11: 39; Stop 04/21/17 at 11:40; Status DC IV Flush (NS Flush) 2 ml UNSCH PRN IVF FLUSH AFTER USING IV ACCESS; Start 04/21 at 11:45; Stop 04/24/17 at 09:34; Status DC IV Flush (NS Flush) 2 ml BID IVF Last administered on 04/23/17 07:51; Start at 21:00; Stop 04/24/17 at 09:34; Status DC Enoxaparin Sodium (Lovenox Inj) 30 mg Q24H SQ Last administered on 04/23/17 11 :01; Start 04/22/17 at 11:00; Stop 04/24/17 at 18:07; Status DC Cefazolin Sodium 1000 mg/Sodium Chloride 100 ml @ 200 mls/hr Q8H IV Last administered on 04/22/17 09:07; Start 04/21/17 at 18:00; Stop 04/22/17 at 10:29 ; Status DC Calcium/Vitamin D (Oscal-D 250-125) 250 mg TID PO Last administered on 09:56; Start 04/21/17 at 13:00; Stop 10/03/17 at 11:55; Status DC Diphenhydramine HCl (Benadryl) 25 mg Q6H PRN PO ITCHING; Start 04/21/17 at 11: 45; Stop 04/24/17 at 08:24; Status DC Acetaminophen/ Hydrocodone Bitart ([place] 7.5-325 Mg) 1 tab Q3H PRN PO pain 3< 10 Last administered on 05/03/17 20:17; Start 04/21/17 at 11:45; Stop 05/07/17 at 12:46; Status DC Cholecalciferol (Vitamin D3) 5,000 units DAILY PO Last administered on 09:08; Start 04/22/17 at 09:00; Stop 10/03/17 at 11:55; Status DC Ergocalciferol (Drisdol) 50,000 units ONCE ONCE PO ; Start 04/21/17 at 13:00; Stop 04/21/17 at 13:01; Status DC Midazolam HCl (Versed Inj) 2 mg STK-MED ONCE .ROUTE ; Start 04/21/17 at 12:15; Stop 04/21/17 at 12:16; Status DC Fentanyl Citrate (fentaNYL INJ) 250 mcg STK-MED ONCE .ROUTE ; Start 04/21/17 at 12:16; Stop 04/21/17 at 12:17; Status DC Morphine Sulfate (*morphine INJ PERIprocedure ONLY) 8 mg STK-MED ONCE .ROUTE Last administered on 04/21/17 12:37; Start 04/21/17 at 12:36; Stop 04/21/17 at 12:37; Status DC Miscellaneous Information ALL NURSING DEPARTME... UNSCH PRN .XX SEE LABEL COMMENTS; Start 04/21/17 at 13:00; Stop 04/22/17 at 12:59; Status DC Calcium Carbonate (Oscal) 500 mg ONCE ONCE PO ; Start 04/24/17 at 08:00; Stop 04/24/17 at 08:01; Status DC Sodium Chloride 1,000 ml @ 70 mls/hr [id number] IV ; Start 04/24/17 at 09:15; Stop 04/24/17 at 09:37; Status DC IV Flush (NS Flush) 2 ml BID IV FLUSH Last administered on 11/14/17at 20:49; Start 04/24/17 at 21:00 IV Flush (NS Flush) 2 ml UNSCH PRN IV FLUSH FLUSH AFTER USING IV ACCESS Last administered on 09/17/17 08:48; Start 04/24/17 at 09:30 Sodium Chloride 1,000 ml @ 70 mls/hr [id number] IV Last administered on 03:38; Start 04/24/17 at 09:25; Stop 04/30/17 at 07:51; Status DC Aspirin (Aspirin Supp) 300 mg DAILY RECTAL Last administered on 04/26/17 08:38 ; Start 04/24/17 at 09:30; Stop 04/26/17 at 15:21; Status DC Insulin Aspart (NovoLOG SUPPLEMENTAL SCALE) 1 ACHS SQ Last administered on 04/24 17:29; Start 04/24/17 at 11:00; Stop 04/24/17 at 18:07; Status DC Dextrose (D50w (Vial) Inj) 50 ml UNSCH PRN IV PUSH HYPOGLYCEMIA-SEE COMMENTS; Start 04/24/17 at 09:30; Stop 04/24/17 at 18:07; Status DC Glucagon (Glucagon Inj) 1 mg UNSCH PRN OTHER HYPOGLYCEMIA-SEE COMMENTS; Start 04/24/17 at 09:30; Stop 04/24/17 at 18:07; Status DC Insulin Aspart (NovoLOG SUPPLEMENTAL SCALE) 1 Q4HR SQ ; Start 04/24/17 at 18:15 ; Stop 04/24/17 at 20:43; Status DC Dextrose (D50w (Vial) Inj) 25 ml UNSCH PRN IV HYPOGLYCEMIA-SEE COMMENTS; Start 04/24/17 at 18:15; Stop 04/26/17 at 20:28; Status DC Glucagon (Glucagon Inj) 1 mg UNSCH PRN IM/SQ HYPOGLYCEMIA-SEE COMMENTS; Start 04/24/17 at 18:15; Stop 05/21/17 at 13:34; Status DC Insulin Aspart (NovoLOG SUPPLEMENTAL SCALE) 1 Q4H SQ Last administered on 03:48; Start 04/24/17 at 22:00; Stop 04/26/17 at 09:43; Status DC Insulin Detemir (Levemir Inj) 10 units HS SQ Last administered on 04/25/17 23: 46; Start 04/25/17 at 21:00; Stop 04/26/17 at 09:43; Status DC Insulin Detemir (Levemir Inj) 20 units BID SQ Last administered on 04/26/17 11 :05; Start 04/26/17 at 10:00; Stop 04/27/17 at 08:34; Status DC Mannitol (Mannitol Inj) 12.5 gm Q6HR IV Last administered on 04/26/17 11:06; Start 04/26/17 at 12:00; Stop 04/28/17 at 18:33; Status DC Dextrose (D50w (Vial) Inj) 50 ml UNSCH PRN IV HYPOGLYCEMIA-SEE COMMENTS; Start 04/26/17 at 09:45; Status UNV Glucagon (Glucagon Inj) 1 mg UNSCH PRN OTHER HYPOGLYCEMIA-SEE COMMENTS; Start 04/26/17 at 09:45; Status UNV Insulin Aspart (NovoLOG SUPPLEMENTAL SCALE) 1 ACHS SLIDING SCALE SQ Last administered on 04/26/17 11:48; Start 04/26/17 at 11:00; Stop 04/26/17 at 15:24 ; Status DC Insulin Aspart (NovoLOG SUPPLEMENTAL SCALE) 1 Q4HR SQ Last administered on 04/28 09:38; Start 04/26/17 at 16:00; Stop 04/28/17 at 15:40; Status DC Aspirin (Aspirin) 325 mg DAILY DOBHOFF Last administered on 11/14/17at 08:31; Start 04/27/17 at 09:00 Dextrose (D50w (Syr) Inj) 25 ml UNSCH PRN IV HYPOGLYCEMIA- SEE COMMENTS Last administered on 05/18/17 00:22; Start 04/26/17 at 20:30; Stop 05/19/17 at 08:01 ; Status DC Metoprolol Tartrate (Lopressor Inj) 5 mg Q5M PRN IV PUSH HR>150 Last administered on 06/02/17 03:21; Start 04/27/17 at 04:00; Stop 07/12/17 at 01: 05; Status DC Insulin Detemir (Levemir Inj) 15 units BID SQ Last administered on 04/28/17 09 :39; Start 04/27/17 at 09:00; Stop 04/28/17 at 15:36; Status DC Potassium Chloride 100 ml @ 50 mls/hr Q2H PRN IV For Potassium 2.8 - 3.2 mEq/L ; Start 04/27/17 at 08:45; Stop 07/12/17 at 00:31; Status DC Potassium Chloride 100 ml @ 50 mls/hr Q2H PRN IV For Potassium 2.8 - 3.2 mEq/ L Last administered on 05/18/17 10:41; Start 04/27/17 at 08:45; Stop 07/12/17 at 00:31; Status DC Potassium Bicarb/ Potassium Chloride (K-Lyte Cl Eff) 50 meq UNSCH PRN PO For Potassium 3.3 - 3.5 mEq/L; Start 04/27/17 at 08:45; Stop 07/12/17 at 00:31; Status DC Potassium Chloride 100 ml @ 25 mls/hr UNSCH PRN IV For Potassium 3.3 - 3.5 mEq /L Last administered on 05/04/17 19:07; Start 04/27/17 at 08:45; Stop 07/12/17 at 00:31; Status DC Potassium Chloride 100 ml @ 50 mls/hr Q2H PRN IV For Potassium 3.3 - 3.5 mEq/ L Last administered on 05/18/17 08:29; Start 04/27/17 at 08:45; Stop 07/12/17 at 00:31; Status DC Magnesium Sulfate 4 gm/Sodium Chloride 100 ml @ 50 mls/hr UNSCH PRN IV For Magnesium 0.9 - 1.1 mg/dL; Start 04/27/17 at 08:45; Stop 07/12/17 at 00:31; Status DC Magnesium Oxide (Mag-Ox) 800 mg UNSCH PRN PO For Magnesium 1.2 - 1.6 mg/dL; Start 04/27/17 at 08:45; Stop 07/12/17 at 00:31; Status DC Magnesium Sulfate 2 gm/Sodium Chloride 100 ml @ 50 mls/hr UNSCH PRN IV For Magnesium 1.2 - 1.6 mg/dL; Start 04/27/17 at 08:45; Stop 07/12/17 at 00:31; Status DC Potassium Phosphate (K-Phos) 2,000 mg Q4H PRN PO For Phosphorus < 2.5 mg/dL Last administered on 04/28/17 15:38; Start 04/27/17 at 08:45; Stop 07/12/17 at 00:31; Status DC Sodium Phosphate 30 mmol/Sodium Chloride 250 ml @ 42 mls/hr UNSCH PRN IV For Phosphorus < 2.5 mg/dL Last administered on 04/27/17 23:59; Start 04/27/17 at 08:45; Stop 07/12/17 at 00:31; Status DC Potassium Phosphate (K-Phos) 2,000 mg UNSCH PRN PO/TUBE SEE LABEL COMMENTS Last administered on 05/08/17 06:32; Start 04/27/17 at 08:45; Stop 07/12/17 at 00:31; Status DC Potassium Phosphate 30 mmol/ Sodium Chloride 260 ml @ 42 mls/hr UNSCH PRN IV SEE LABEL COMMENTS Last administered on 05/04/17 20:54; Start 04/27/17 at 08:45 ; Stop 07/12/17 at 00:31; Status DC Insulin Detemir (Levemir Inj) 10 units BID SQ Last administered on 04/30/17 21 :00; Start 04/28/17 at 21:00; Stop 05/01/17 at 07:49; Status DC Pantoprazole Sodium (Protonix Inj) 40 mg Q24H IV PUSH Last administered on 17:00; Start 04/28/17 at 17:00; Stop 05/07/17 at 12:52; Status DC Insulin Aspart (NovoLOG SUPPLEMENTAL SCALE) 1 ACHS SLIDING SCALE SQ Last administered on 05/18/17 21:00; Start 04/28/17 at 16:00; Stop 05/19/17 at 07:55 ; Status DC Sodium Chloride 250 ml @ 15 mls/hr ONCE ONCE IV ; Start 04/28/17 at 18:00; Stop 04/28/17 at 18:33; Status DC Acetaminophen (Ofirmev 1000 Mg/ 100 ml Inj) 1,000 mg NOW ONCE IV Last administered on 04/29/17 01:00; Start 04/29/17 at 01:00; Stop 04/29/17 at 01:01 ; Status DC Iohexol (Omnipaque 350 Inj) 75 ml STK-MED ONCE IVCONTRAST Last administered on 04/26/17 04:26; Start 04/26/17 at 04:26; Stop 04/29/17 at 10:24; Status DC Fluconazole/ Sodium Chloride 100 ml @ 100 mls/hr Q24H IV Last administered on 04/30/17 14:59; Start 04/29/17 at 14:00; Stop 04/30/17 at 15:40; Status DC Metronidazole (Flagyl) 500 mg Q8HR DOBHOFF Last administered on 05/13/17 13:37 ; Start 04/29/17 at 14:00; Stop 05/13/17 at 16:14; Status DC Albuterol/ Ipratropium (Duoneb Neb) 1 ampule Q4HR NEB PRN NEB CONGESTION Last administered on 05/04/17 20:38; Start 04/30/17 at 04:45; Stop 05/07/17 at 12:46; Status DC Bumetanide (Bumex Inj) 1 mg ONCE ONCE IV PUSH Last administered on 04/30/17 10:14; Start 04/30/17 at 08:00; Stop 04/30/17 at 08:01; Status DC Potassium Chloride/Sodium Chloride 1,000 ml @ 84 mls/hr [id number] IV Last administered on 05/01/17 07:00; Start 04/30/17 at 08:00; Stop 05/01/17 at 07:32 ; Status DC Albuterol/ Ipratropium (Duoneb Neb) 1 ampule Q6HR NEB NEB Last administered on 05/04/17 07:52; Start 04/30/17 at 10:00; Stop 05/04/17 at 09:59; Status DC Cefepime HCl 2000 mg/Sodium Chloride 100 ml @ 200 mls/hr Q8H IV Last administered on 05/04/17 07:53; Start 04/30/17 at 09:00; Stop 05/04/17 at 08:22; Status DC Micafungin Sodium 100 mg/Sodium Chloride 100 ml @ 100 mls/hr Q24H IV Last administered on 05/07/17 10:29; Start 04/30/17 at 09:00; Stop 05/07/17 at 13:49; Status DC Etomidate (Amidate Inj) 20 mg STK-MED ONCE .ROUTE Last administered on 15:07; Start 04/30/17 at 14:56; Stop 04/30/17 at 14:57; Status DC Midazolam HCl (Versed Inj) 5 mg STK-MED ONCE .ROUTE Last administered on 15:06; Start 04/30/17 at 14:57; Stop 04/30/17 at 14:58; Status DC Rocuronium [place] (Zemuron Inj) 50 mg STK-MED ONCE .ROUTE Last administered on 04/30/17 15:07; Start 04/30/17 at 14:58; Stop 04/30/17 at 14:59; Status DC Etomidate (Amidate Inj) 20 mg NOW ONCE IV PUSH ; Start 04/30/17 at 15:30; Stop 04/30/17 at 15:31; Status DC Midazolam HCl (Versed Inj) 5 mg NOW ONCE IV PUSH ; Start 04/30/17 at 15:30; Stop 04/30/17 at 15:32; Status DC Rocuronium [place] (Zemuron Inj) 50 mg NOW ONCE IV PUSH ; Start 04/30/17 at 15: 45; Stop 04/30/17 at 15:46; Status DC Vancomycin HCl 1000 mg/Sodium Chloride 250 ml @ 250 mls/hr Q12H IV ; Start at 15:45; Status Cancel Pharmacy Profile Note 1,000 ml @ 30 mls/hr UNSCH OTHER ; Start 04/30/17 at 15: 45; Stop 05/04/17 at 08:22; Status DC Vancomycin HCl 1250 mg/Sodium Chloride 262.5 ml @ 250 mls/hr Q12H IV Last administered on 05/03/17 07:24; Start 04/30/17 at 18:00; Stop 05/03/17 at 15:39; Status DC Miscellaneous Information SPECIFIC LAB TO BE DRAWN:VANCOMYCIN TROUGH DATE TO... ONCE ONCE .XX ; Start 05/02/17 at 05:45; Stop 05/02/17 at 05:46; Status DC Sodium Chloride 1,000 ml @ 84 mls/hr [id number] IV Last administered on 05/02/17 09:24; Start 05/01/17 at 07:30; Stop 05/02/17 at 11:49; Status DC Insulin Detemir (Levemir Inj) 20 units Q12H SQ Last administered on 05/02/17 09 :23; Start 05/01/17 at 09:00; Stop 05/02/17 at 12:07; Status DC Enoxaparin Sodium (Lovenox Inj) 40 mg Q24H SQ Last administered on 07/14/17 07:47; Start 05/01/17 at 08:00; Stop 07/14/17 at 12:05; Status DC Lactated Ringer's 1,000 ml @ 75 mls/hr [id number] IV Last administered on 05:57; Start 05/02/17 at 13:00; Stop 05/07/17 at 16:50; Status DC Insulin Detemir (Levemir Inj) 25 units Q12H SQ Last administered on 05/04/17 07 :50; Start 05/02/17 at 21:00; Stop 05/05/17 at 09:20; Status DC Vancomycin HCl 1250 mg/Sodium Chloride 262.5 ml @ 262.5 mls/ hr Q24H IV Last administered on 05/04/17 05:21; Start 05/04/17 at 06:00; Stop 05/04/17 at 08:22; Status DC Miscellaneous Information SPECIFIC LAB TO BE ROLF... ONCE ONCE .XX ; Start at 05:45; Stop 05/06/17 at 05:45; Status DC Levofloxacin/ Dextrose 150 ml @ 100 mls/hr Q24H IV Last administered on 10:00; Start 05/04/17 at 09:00; Stop 05/13/17 at 16:14; Status DC Furosemide (Lasix Inj) 10 mg BID@09,18 IV PUSH Last administered on 05/05/17 09 :05; Start 05/04/17 at 18:00; Stop 05/05/17 at 09:01; Status DC Albuterol/ Ipratropium (Duoneb Neb) 1 ampule Q6HR ALT NEB NEB Last administered on 05/05/17 04:30; Start 05/05/17 at 01:00; Stop 05/05/17 at 04:38; Status DC Albuterol/ Ipratropium (Duoneb Neb) 1 ampule Q6HR NEB NEB Last administered on 05/08/17 09:56; Start 05/05/17 at 10:00; Stop 05/08/17 at 10:15; Status DC Insulin Detemir (Levemir Inj) 10 units Q12H SQ Last administered on 05/07/17 10 :43; Start 05/05/17 at 21:00; Stop 05/07/17 at 13:54; Status DC Lactulose (Lactulose Liq) 30 ml DAILY PO Last administered on 05/07/17 10:29; Start 05/05/17 at 09:30; Stop 05/07/17 at 12:50; Status DC Sodium Chloride 1,000 ml @ 999 mls/hr BOLUS ONCE IV Last administered on 09:08; Start 05/06/17 at 07:45; Stop 05/06/17 at 08:45; Status DC Propofol (Diprivan 200 Mg/20 ml Inj) 200 mg STK-MED ONCE IV ; Start 04/21/17 at 12:12; Stop 05/06/17 at 12:13; Status DC Ephedrine Sulfate (ePHEDrine/NS 25 MG/5 ML SYR) 25 mg STK-MED ONCE IV ; Start at 12:12; Stop 05/06/17 at 12:13; Status DC Neostigmine Methylsulfate (Prostigmin Inj) 3 mg STK-MED ONCE IV ; Start at 12:12; Stop 05/06/17 at 12:13; Status DC Phenylephrine HCl (Neosynephrine/ NS 1000 Mcg/10ml Syr) 1,000 mcg STK-MED ONCE IV ; Start 04/21/17 at 12:12; Stop 05/06/17 at 12:13; Status DC Ondansetron HCl (Zofran Inj) 4 mg STK-MED ONCE IV PUSH ; Start 04/21/17 at 12:12 ; Stop 05/06/17 at 12:13; Status DC Albumin Human (Albumin 5% Inj) 25 gm NOW ONCE IV Last administered on 21:11; Start 05/06/17 at 20:45; Stop 05/06/17 at 20:46; Status DC Albuterol Sulfate (Albuterol Neb) 2.5 mg Q2HR NEB PRN NEB DYSPNEA; Start at 12:30; Stop 05/07/17 at 14:30; Status DC Bumetanide (Bumex Inj) 1 mg ONCE ONCE IV PUSH Last administered on 05/07/17 15 :07; Start 05/07/17 at 15:00; Stop 05/07/17 at 15:01; Status DC Metolazone (Zaroxolyn) 2.5 mg ONCE ONCE PO Last administered on 05/07/17 16:36 ; Start 05/07/17 at 15:30; Stop 05/07/17 at 15:31; Status DC Potassium Chloride (KCl Powder) 20 meq ONCE ONCE PO Last administered on 15:00; Start 05/07/17 at 15:00; Stop 05/07/17 at 15:01; Status DC Docusate Sodium (Colace Liq) 100 mg Q12HR PO Last administered on 07/22/17 21 :52; Start 05/07/17 at 21:00; Stop 07/26/17 at 16:13; Status DC Sennosides (Senna Liq) 8.8 mg BID OG-TUBE Last administered on 05/17/17 09:11 ; Start 05/07/17 at 21:00; Stop 05/19/17 at 08:05; Status DC Lactulose (Lactulose Liq) 30 ml QID PO Last administered on 05/16/17 20:56; Start 05/07/17 at 18:00; Stop 05/19/17 at 08:05; Status DC Polyethylene Glycol (Miralax) 17 gm BID OG-TUBE Last administered on 05/16/17 20:56; Start 05/07/17 at 21:00; Stop 05/19/17 at 08:05; Status DC Mineral Oil (Fleet Mineral Oil Enema) 118 ml ONCE ONCE RECTAL ; Start 05/07/17 at 13:00; Stop 05/07/17 at 14:37; Status DC Mineral Oil (Mineral Oil Liq) 30 ml ONCE ONCE PO Last administered on 16:36; Start 05/07/17 at 16:00; Stop 05/07/17 at 16:02; Status DC Methylnaltrexone [place] (Relistor Inj) 12 mg ONCE ONCE SQ Last administered on 05/07/17 16:37; Start 05/07/17 at 15:00; Stop 05/07/17 at 15:01; Status DC Albuterol Sulfate (Albuterol Neb) 2.5 mg Q2HR NEB PRN NEB DYSPNEA Last administered on 07/06/17 23:51; Start 05/07/17 at 13:00; Stop 07/16/17 at 16:36 ; Status DC Lansoprazole (Prevacid Odt) 30 mg DAILY NG Last administered on 11/14/17at 08:31 ; Start 05/08/17 at 09:00 Iohexol (Omnipaque 350 Inj) 60 ml STK-MED ONCE IVCONTRAST Last administered on 05/07/17 13:35; Start 05/07/17 at 13:35; Stop 05/07/17 at 13:36; Status DC Insulin Detemir (Levemir Inj) 15 units Q12H SQ Last administered on 05/10/17 20 :49; Start 05/07/17 at 21:00; Stop 05/11/17 at 09:21; Status DC Fentanyl Citrate (fentaNYL INJ) 100 mcg STK-MED ONCE .ROUTE ; Start 05/07/17 at 14:17; Stop 05/07/17 at 14:18; Status DC Midazolam HCl (Versed Inj) 5 mg STK-MED ONCE .ROUTE ; Start 05/07/17 at 14:18; Stop 05/07/17 at 14:19; Status DC Mineral Oil (Fleet Mineral Oil Enema) 118 ml ONCE ONCE RECTAL Last administered on 05/07/17 16:35; Start 05/07/17 at 16:00; Stop 05/07/17 at 16:02; Status DC Fentanyl Citrate (fentaNYL INJ) 50 mcg NOW ONCE IV Last administered on 17:21; Start 05/07/17 at 17:15; Stop 05/07/17 at 17:20; Status DC Midazolam HCl (Versed Inj) 1 mg NOW ONCE IV Last administered on 05/07/17 17: 15; Start 05/07/17 at 17:15; Stop 05/07/17 at 17:20; Status DC Potassium Chloride (KCl Powder) 80 meq ONCE ONCE PO Last administered on 10:29; Start 05/08/17 at 10:00; Stop 05/08/17 at 10:01; Status DC Potassium Chloride 100 ml @ 100 mls/hr Q1H IV Last administered on 05/08/17 15 :24; Start 05/08/17 at 10:00; Stop 05/08/17 at 12:59; Status DC Potassium Phos/ Sodium Phos (K-Phos Neutral) 1,000 mg ONCE ONCE PO Last administered on 05/08/17 10:46; Start 05/08/17 at 10:00; Stop 05/08/17 at 10:01; Status DC Bumetanide (Bumex Inj) 1 mg ONCE ONCE IV PUSH Last administered on 05/08/17 10 :28; Start 05/08/17 at 10:00; Stop 05/08/17 at 10:01; Status DC Albuterol/ Ipratropium (Duoneb Neb) 1 ampule Q6HR NEB NEB Last administered on 05/12/17 15:53; Start 05/08/17 at 16:00; Stop 05/12/17 at 15:59; Status DC Furosemide (Lasix Inj) 20 mg BID@09,18 IV PUSH Last administered on 05/10/17 18 :00; Start 05/10/17 at 10:00; Stop 05/11/17 at 06:15; Status DC Furosemide (Lasix Inj) 40 mg BID@0900,1800 IV PUSH Last administered on 17:53; Start 05/11/17 at 09:00; Stop 05/18/17 at 08:06; Status DC Acetazolamide Sodium (Diamox Inj) 500 mg DAILY IV PUSH Last administered on 08:54; Start 05/11/17 at 09:30; Stop 05/12/17 at 23:00; Status DC Insulin Detemir (Levemir Inj) 5 units Q12H SQ Last administered on 05/17/17 09 :12; Start 05/11/17 at 21:00; Stop 05/18/17 at 08:06; Status DC Protein (Beneprotein Powder) 1 pack TID G-TUBE Last administered on 10/03/17at 09 :00; Start 05/12/17 at 13:00; Stop 10/03/17 at 11:56; Status DC Acetazolamide Sodium (Diamox Inj) 500 mg ONCE ONCE IV PUSH Last administered on 05/13/17 22:40; Start 05/13/17 at 22:00; Stop 05/13/17 at 22:01; Status DC Cisatracurium Besylate (Nimbex Inj) 12 mg ONCE ONCE IV PUSH Last administered on 05/15/17 15:15; Start 05/14/17 at 17:45; Stop 05/14/17 at 17:49; Status DC Fentanyl Citrate (fentaNYL INJ) 100 mcg MANAGER SUBWAY IV PUSH Last administered on 15:15; Start 05/14/17 at 17:45; Stop 05/15/17 at 17:44; Status DC Midazolam HCl (Versed Inj) 2 mg MANAGER SUBWAY IV PUSH Last administered on 15:15; Start 05/14/17 at 17:45; Stop 05/15/17 at 17:44; Status DC Cisatracurium Besylate (Nimbex Inj) 12 mg MANAGER SUBWAY IV PUSH ; Start 05/14/17 at 18:00; Stop 05/15/17 at 17:59; Status DC Cefazolin Sodium 1000 mg/Sodium Chloride 100 ml @ 200 mls/hr MANAGER SUBWAY IV Last administered on 05/16/17 12:35; Start 05/15/17 at 17:15; Stop 05/18/17 at 17:14 ; Status DC Propofol (Diprivan 200 Mg/20 ml Inj) 210 mg STK-MED ONCE IV ; Start 05/16/17 at 13:30; Stop 05/16/17 at 18:25; Status DC Sodium Chloride 1,000 ml @ 75 mls/hr [id number] IV Last administered on 12:42; Start 05/17/17 at 11:45; Stop 05/19/17 at 07:55; Status DC Furosemide (Lasix Inj) 40 mg DAILY IV PUSH Last administered on 05/18/17 08:29 ; Start 05/18/17 at 09:00; Stop 05/19/17 at 07:55; Status DC Furosemide (Lasix Liq) 40 mg DAILY NG Last administered on 06/18/17 11:02; Start 05/19/17 at 09:00; Stop 06/19/17 at 06:54; Status DC Dextrose (D50w (Vial) Inj) 25 ml UNSCH PRN IV PUSH HYPOGLYCEMIA-SEE COMMENTS; Start 05/19/17 at 08:00; Stop 05/20/17 at 20:59; Status DC Insulin Human Regular (NovoLIN R SUPPLEMENTAL SCALE) 1 Q4HR SQ Last administered on 05/21/17 12:00; Start 05/19/17 at 08:00; Stop 05/21/17 at 13:15 ; Status DC Insulin Detemir (Levemir Inj) 8 units DAILY SQ Last administered on 05/20/17 09:00; Start 05/19/17 at 09:00; Stop 05/21/17 at 13:15; Status DC Dextrose (D50w (Syr) Inj) 25 ml UNSCH PRN IV PUSH HYPOGLYCEMIA-SEE COMMENTS Last administered on 05/20/17 21:14; Start 05/20/17 at 21:00; Stop 05/21/17 at 13:34; Status DC Insulin Detemir (Levemir Inj) 7 units Q12H SQ Last administered on 05/22/17 09 :00; Start 05/21/17 at 21:00; Stop 05/22/17 at 17:19; Status DC Dextrose (D50w (Vial) Inj) 50 ml UNSCH PRN IV PUSH HYPOGLYCEMIA-SEE COMMENTS; Start 05/21/17 at 13:15; Stop 05/22/17 at 17:06; Status DC Glucagon (Glucagon Inj) 1 mg UNSCH PRN OTHER HYPOGLYCEMIA-SEE COMMENTS; Start 05/21/17 at 13:15; Stop 10/08/17 at 11:08; Status DC Insulin Aspart (NovoLOG SUPPLEMENTAL SCALE) 1 ACHS SLIDING SCALE SQ Last administered on 06/11/17 11:56; Start 05/21/17 at 17:00; Stop 06/12/17 at 07: 10; Status DC Dextrose (D50w (Syr) Inj) 50 ml UNSCH PRN IV PUSH HYPOGLYCEMIA-SEE COMMENTS Last administered on 10/04/17at 01:57; Start 05/22/17 at 17:15; Stop 10/08/17 at 11 :08; Status DC Insulin Detemir (Levemir Inj) 5 units Q12H SQ Last administered on 05/27/17 21 :22; Start 05/22/17 at 21:00; Stop 05/28/17 at 09:50; Status DC Enalaprilat (Vasotec Inj) 1.25 mg Q6H PRN IV PUSH SBP> OR = 180, DBP> OR = 100 Last administered on 05/31/17 05:28; Start 05/24/17 at 22:45; Stop 05/31/17 at 07:41; Status DC Water (Free Water) VOLUME: 300 ML Q6HR G-TUBE Last administered on 06/10/17 06:00; Start 05/25/17 at 14:15; Stop 06/10/17 at 11:23; Status DC Acetazolamide Sodium (Diamox Inj) 500 mg ONCE ONCE IV PUSH Last administered on 05/26/17 08:54; Start 05/26/17 at 09:00; Stop 05/26/17 at 09:01; Status DC Ceftriaxone Sodium 1000 mg/ Sodium Chloride 100 ml @ 200 mls/hr Q24H IV Last administered on 05/27/17 08:32; Start 05/26/17 at 09:00; Stop 05/27/17 at 15:41 ; Status DC Cefepime HCl 1000 mg/Sodium Chloride 100 ml @ 200 mls/hr Q12H IV Last administered on 06/03/17 05:32; Start 05/27/17 at 16:00; Stop 06/03/17 at 09:12 ; Status DC Sodium Chloride 250 ml @ 15 mls/hr ONCE ONCE IV Last administered on 09:45; Start 05/28/17 at 09:45; Stop 05/29/17 at 02:24; Status DC Acetaminophen (Tylenol) 650 mg Q4H PRN PO SEE LABEL COMMENTS; Start 05/28/17 at 10:00; Stop 06/10/17 at 11:23; Status DC Diphenhydramine HCl (Benadryl) 25 mg Q4H PRN PO SEE LABEL COMMENTS; Start 05/28 at 10:00; Stop 06/02/17 at 07:40; Status DC Furosemide (Lasix Inj) 20 mg ONCE ONCE IV PUSH ; Start 05/28/17 at 10:00; Stop 05/28/17 at 10:01; Status DC Insulin Detemir (Levemir Inj) 7 units Q12H SQ Last administered on 06/20/17 21:12; Start 05/28/17 at 21:00; Stop 06/21/17 at 07:27; Status DC Artificial Tears (Tears Naturale Opth Soln) 1 drop Q4H PRN EACH EYE DRY EYE; Start 05/29/17 at 21:15; Stop 06/12/17 at 07:10; Status DC Hydralazine HCl (Apresoline Inj) 20 mg Q4H PRN IV PUSH SBP >160 Last administered on 06/21/17 04:06; Start 05/31/17 at 07:45; Stop 06/21/17 at 07: 23; Status DC Lisinopril (Prinivil) 10 mg Q12HR PO Last administered on 06/20/17 21:12; Start 05/31/17 at 09:00; Stop 06/21/17 at 07:23; Status DC Artificial Tears (Tears Naturale Opth Soln) 1 drop Q8HR EACH EYE Last administered on 11/15/17at 05:18; Start 06/12/17 at 07:15 Insulin Aspart (NovoLOG SUPPLEMENTAL SCALE) 1 Q6HR SQ Last administered on 18:00; Start 06/12/17 at 12:00; Stop 07/16/17 at 16:36; Status DC Sodium Chloride (Sodium Chloride) 2 gm ONCE ONCE PEG Last administered on 09:41; Start 06/12/17 at 07:00; Stop 06/12/17 at 07:12; Status DC Albuterol/ Ipratropium (Duoneb Neb) 1 ampule Q6HR NEB NEB Last administered on 06/16/17 03:46; Start 06/12/17 at 10:00; Stop 06/16/17 at 07:10; Status DC Insulin Aspart (NovoLOG INJ) 10 units ONCE ONCE SQ Last administered on 10:00; Start 06/12/17 at 10:00; Stop 06/12/17 at 10:32; Status DC Erythromycin Ethylsuccinate (Ees) 250 mg Q8HR PO ; Start 06/16/17 at 02:00; Stop 06/16/17 at 02:00; Status DC Methylnaltrexone [place] (Relistor Inj) 12 mg ONCE ONCE SQ Last administered on 06/16/17 01:40; Start 06/16/17 at 02:00; Stop 06/16/17 at 02:01; Status DC Erythromycin (Erythromycin Ec) 250 mg Q8HR PO Last administered on 06/18/17 12:27; Start 06/16/17 at 02:00; Stop 06/18/17 at 22:53; Status DC Albuterol/ Ipratropium (Duoneb Neb) 1 ampule Q6HR NEB NEB Last administered on 06/20/17 08:04; Start 06/16/17 at 10:00; Stop 06/20/17 at 09:24; Status DC Erythromycin Ethylsuccinate (Ees 400 Mg/5 ml Liq) 250 mg Q8H PO Last administered on 06/19/17 01:19; Start 06/19/17 at 00:00; Stop 06/19/17 at 06 :54; Status DC Polyethylene Glycol (Miralax) 17 gm DAILY PO ; Start 06/19/17 at 09:00; Stop 06/23/17 at 06:47; Status DC Albuterol/ Ipratropium (Duoneb Neb) 1 ampule Q6HR NEB NEB Last administered on 06/24/17 08:30; Start 06/20/17 at 10:00; Stop 06/24/17 at 09:59; Status DC Hydralazine HCl (Apresoline Inj) 10 mg Q1H PRN IV PUSH SBP >160 Last administered on 07/10/17 13:51; Start 06/21/17 at 07:30; Stop 07/12/17 at 00: 26; Status DC Lisinopril (Prinivil) 20 mg Q12HR PO Last administered on 08/22/17 21:16; Start 06/21/17 at 09:00; Stop 08/23/17 at 07:26; Status DC Labetalol HCl (Trandate Inj) 10 mg Q1H PRN IV PUSH SBP>160, DBP>90, HR>65 Last administered on 07/08/17 05:02; Start 06/21/17 at 07:30; Stop 07/12/17 at 00: 26; Status DC Nitroglycerin (Nitroglycerin 2% Oint) 2 inch Q6H PRN TOPICAL SBP>160, DBP>90 Last administered on 06/30/17 14:37; Start 06/21/17 at 08:00 Piperacillin Sod/ Tazobactam Sod 100 ml @ 200 mls/hr Q6H IV Last administered on 06/29/17 02:07; Start 06/21/17 at 09:00; Stop 06/29/17 at 08:59; Status DC Pharmacy Profile Note 0 ml @ 0 mls/hr UNSCH OTHER ; Start 06/21/17 at 07:30; Stop 06/23/17 at 06:46; Status DC Guaifenesin (Robitussin Liq) 400 mg Q8HR PEG Last administered on 06/29/17 06 :02; Start 06/21/17 at 14:00; Stop 06/29/17 at 13:59; Status DC Sodium Chloride (Sodium Chloride 3% Neb) 2 ml Q6HR NEB NEB Last administered on 06/29/17 08:21; Start 06/21/17 at 10:00; Stop 06/29/17 at 09:59; Status DC Insulin Detemir (Levemir Inj) 10 units Q12H SQ Last administered on 07/19/17 08:39; Start 06/21/17 at 09:00; Stop 07/19/17 at 09:26; Status DC Vancomycin HCl 1000 mg/Sodium Chloride 250 ml @ 250 mls/hr ONCE ONCE IV Last administered on 06/21/17 11:50; Start 06/21/17 at 12:00; Stop 06/21/17 at 12 :59; Status DC Vancomycin HCl 750 mg/Sodium Chloride 257.5 ml @ 250 mls/hr Q12H IV Last administered on 06/23/17 00:02; Start 06/22/17 at 00:00; Stop 06/23/17 at 06 :46; Status DC Miscellaneous Information SPECIFIC LAB TO BE ROLF... ONCE ONCE .XX ; Start at 23:45; Stop 06/22/17 at 23:46; Status DC Miscellaneous Information SPECIFIC LAB TO BE ROLF... ONCE ONCE .XX ; Start at 11:45; Stop 06/23/17 at 11:46; Status DC Polyethylene Glycol (Miralax) 17 gm BID PEG Last administered on 07/02/17 08: 35; Start 06/23/17 at 09:00; Stop 07/09/17 at 08:04; Status DC Albuterol/ Ipratropium (Duoneb Neb) 1 ampule Q6HR NEB NEB Last administered on 07/08/17 10:22; Start 07/04/17 at 10:00; Stop 07/08/17 at 09:59; Status DC Polyethylene Glycol (Miralax) 17 gm DAILY PEG Last administered on 10/02/17at 07: 59; Start 07/09/17 at 09:00; Stop 10/03/17 at 11:56; Status DC Clonidine (Catapres) 0.1 mg Q6H PRN PO SBP >160 Last administered on 16:22; Start 07/12/17 at 00:30; Stop 10/03/17 at 11:55; Status DC Heparin Sodium (Porcine) (Heparin Inj) 5,000 units Q8HR SQ Last administered on 11/15/17at 05:18; Start 07/15/17 at 08:00 Sodium Chloride 1,000 ml @ 42 mls/hr [id number] IV Last administered on 15:15; Start 07/14/17 at 14:45; Stop 07/15/17 at 08:00; Status DC Albuterol/ Ipratropium (Duoneb Neb) 2.5 ampule Q6HR NEB NEB ; Start 07/16/17 at 16:45; Stop 07/16/17 at 19:01; Status DC Hyoscyamine Sulfate (Levsin Liq) 0.125 mg BID PEG ; Start 07/16/17 at 21:00; Stop 07/16/17 at 21:00; Status DC Albuterol Sulfate (Albuterol Neb) 2.5 mg Q6HR NEB INH Last administered on 19:49; Start 07/16/17 at 22:00; Stop 07/20/17 at 21:59; Status DC Acetylcysteine (Mucomyst 20% Neb) 2 ml Q8HR NEB PRN NEB SECRETIONS; Start at 08:00; Stop 07/17/17 at 08:00; Status DC Acetylcysteine (Mucomyst 20% Neb) 2 ml Q8HR NEB PRN NEB SECRETIONS Last administered on 07/21/17 03:31; Start 07/17/17 at 08:00; Stop 07/21/17 at 07 :59; Status DC Trimethoprim/ Sulfamethoxazole (Bactrim 800-160 Mg/20 ml Liq) 20 ml Q12H PO ; Start 07/17/17 at 09:45; Stop 07/17/17 at 09:50; Status DC Trimethoprim/ Sulfamethoxazole (Bactrim 800-160 Mg/20 ml Liq) 20 ml Q12HR PEG Last administered on 07/19/17 21:27; Start 07/17/17 at 11:00; Stop 07/19/17 at 21:01; Status DC Insulin Detemir (Levemir Inj) 15 units Q12H SQ Last administered on 07/20/17 08:00; Start 07/19/17 at 21:00; Stop 07/20/17 at 08:26; Status DC Insulin Detemir (Levemir Inj) 18 units Q12H SQ Last administered on 07/22/17 13:46; Start 07/20/17 at 21:00; Stop 07/22/17 at 14:39; Status DC Trimethoprim/ Sulfamethoxazole (Bactrim 800-160 Mg/20 ml Liq) 20 ml Q12HR PEG Last administered on 07/21/17 08:12; Start 07/20/17 at 15:00; Stop 07/21/17 at 13:16; Status DC Albuterol/ Ipratropium (Duoneb Neb) 1 ampule ONCE ONCE NEB Last administered on 07/21/17 03:30; Start 07/21/17 at 03:30; Stop 07/21/17 at 03:31; Status DC Albuterol/ Ipratropium (Duoneb Neb) 1 ampule ONCE PRN NEB SHORTNESS OF BREATH; Start 07/21/17 at 04:15; Stop 07/21/17 at 07:30; Status DC Albuterol/ Ipratropium (Duoneb Neb) 1 ampule Q6HR NEB NEB Last administered on 07/25/17 09:05; Start 07/21/17 at 10:00; Stop 07/25/17 at 09:59; Status DC Acetylcysteine (Mucomyst 20% Neb) 2 ml Q8HR NEB PRN NEB SECRETIONS; Start at 07:00; Stop 07/21/17 at 07:24; Status DC Piperacillin Sod/ Tazobactam Sod 100 ml @ 200 mls/hr Q6H IV Last administered on 07/25/17 04:56; Start 07/21/17 at 10:00; Stop 07/25/17 at 07:50; Status DC Azithromycin 500 mg/Sodium Chloride 250 ml @ 250 mls/hr Q24H IV Last administered on 07/25/17 10:58; Start 07/21/17 at 11:00; Stop 07/25/17 at 13 :36; Status DC Insulin Aspart (NovoLOG SUPPLEMENTAL SCALE) 1 Q6HR SQ Last administered on at 06:47; Start 07/21/17 at 18:00; Stop 10/08/17 at 09:45; Status DC Insulin Detemir (Levemir Inj) 15 units Q12H SQ Last administered on 07/26/17 23:10; Start 07/22/17 at 21:00; Stop 07/27/17 at 09:00; Status DC Ceftolozane/ Tazobactam 1500 mg/Sodium Chloride 100 ml @ 100 mls/hr Q8H IV Last administered on 08/06/17 08:25; Start 07/25/17 at 09:00; Stop 08/06/17 at 12:58; Status DC Fluconazole/ Sodium Chloride 100 ml @ 100 mls/hr ONCE ONCE IV Last administered on 07/26/17 17:00; Start 07/26/17 at 17:00; Stop 07/26/17 at 17 :59; Status DC Insulin Detemir (Levemir Inj) 7 units Q12HR SQ Last administered on 09/14/17 07:32; Start 07/27/17 at 09:00; Stop 09/14/17 at 15:42; Status DC Furosemide (Lasix Liq) 40 mg ONCE ONCE NG Last administered on 07/29/17 17: 29; Start 07/29/17 at 16:00; Stop 07/29/17 at 16:02; Status DC Lactated Ringer's 1,000 ml @ 30 mls/hr Q24H PRN IV SEE LABEL COMMENTS; Start 08/03/17 at 06:30; Stop 08/06/17 at 06:29; Status DC Lidocaine/ Epinephrine (Xylocaine-Epi 1%-1:100,000 Inj) 20 ml STK-MED ONCE .ROUTE Last administered on 08/05/17 17:58; Start 08/05/17 at 17:58; Stop 08/05/17 at 17:59; Status DC Colistin Sulfate (Coly-Mycin M Neb) 75 mg Q8HR NEB NEB Last administered on 08:25; Start 08/06/17 at 16:00; Stop 08/12/17 at 15:59; Status DC Furosemide (Lasix Liq) 40 mg ONCE ONCE NG Last administered on 08/08/17 12: 54; Start 08/08/17 at 12:15; Stop 08/08/17 at 12:16; Status DC Albuterol/ Ipratropium (Duoneb Neb) 1 ampule Q6HR NEB PRN NEB WHEEZING Last administered on 10/16/17 07:17; Start 08/10/17 at 14:00; Stop 10/25/17 at 08: 28; Status DC Lisinopril (Prinivil) 30 mg Q12HR PO Last administered on 08/24/17 21:00; Start 08/23/17 at 09:00; Stop 08/25/17 at 07:46; Status DC Lisinopril (Prinivil) 40 mg Q12HR PO Last administered on 09/15/17at 20:54; Start 08/25/17 at 09:00; Stop 09/15/17 at 22:16; Status DC Amlodipine Besylate (Norvasc) 5 mg DAILY PO Last administered on 09/01/17at 09:24 ; Start 08/31/17 at 09:00; Stop 09/02/17 at 06:48; Status DC Amlodipine Besylate (Norvasc) 10 mg DAILY PO Last administered on 10/02/17at 08: 00; Start 09/02/17 at 09:00; Stop 10/03/17 at 11:55; Status DC Metoprolol Tartrate (Lopressor) 12.5 mg Q12HR PO Last administered on 09/06/17at 08:46; Start 09/05/17 at 21:00; Stop 10/03/17 at 11:55; Status DC Miscellaneous (Pill Splitter) 1 ea UNSCH PRN OTHER SEE LABEL COMMENTS; Start at 11:00 Trimethoprim/ Sulfamethoxazole (Bactrim 800-160 Mg/20 ml Liq) 20 ml Q12H PEG ; Start 09/09/17 at 20:00; Stop 09/09/17 at 20:00; Status DC Trimethoprim/ Sulfamethoxazole (Bactrim Ds 800-160 Mg) 1 tab Q12HR PEG Last administered on 09/29/17at 09:36; Start 09/09/17 at 21:00; Stop 09/29/17 at 22:01 ; Status DC Insulin Detemir (Levemir Inj) 12 units Q12HR SQ Last administered on 09/20/17at 20:49; Start 09/14/17 at 21:00; Stop 09/21/17 at 08:28; Status DC Lisinopril (Prinivil) 40 mg DAILY PO Last administered on 09/19/17at 09:39; Start 09/16/17 at 09:00; Stop 09/20/17 at 17:11; Status DC Sodium Polystyrene Sulfonate (Kayexalate Liq) 15 gm ONCE ONCE PO Last administered on 09/16/17at 11:01; Start 09/16/17 at 10:45; Stop 09/16/17 at 10:46 ; Status DC Acetaminophen (Tylenol) 500 mg Q6H PRN PEG Fever > 100.0F Last administered on 09/16/17at 16:36; Start 09/16/17 at 16:15; Stop 10/26/17 at 06:36; Status DC Dextrose 1,000 ml @ 75 mls/hr [id number] IV Last administered on 09/20/17at 11:09 ; Start 09/18/17 at 15:30; Stop 09/20/17 at 17:11; Status DC Lisinopril (Prinivil) 20 mg DAILY PO ; Start 09/21/17 at 09:00; Stop 09/21/17 at 23:55; Status DC Metoclopramide HCl (Reglan Inj) 10 mg ONCE ONCE IV PUSH Last administered on at 03:37; Start 09/21/17 at 03:15; Stop 09/21/17 at 03:16; Status DC Insulin Detemir (Levemir Inj) 12 units HS SQ Last administered on 09/26/17at 21: 00; Start 09/21/17 at 21:00; Stop 09/27/17 at 17:31; Status DC Calcium Gluconate 1 gm/Dextrose 110 ml @ 110 mls/hr ONCE ONCE IV Last administered on 09/21/17at 11:43; Start 09/21/17 at 11:15; Stop 09/21/17 at 12:14 ; Status DC Sodium Polystyrene Sulfonate (Kayexalate Liq) 15 gm QID PEG Last administered on 09/22/17at 09:30; Start 09/21/17 at 13:00; Stop 09/22/17 at 09:02; Status DC Insulin Human Regular (NovoLIN R INJ) 10 units ONCE ONCE IV PUSH Last administered on 09/21/17at 11:42; Start 09/21/17 at 11:30; Stop 09/21/17 at 11:31 ; Status DC Dextrose (D50w (Vial) Inj) 50 ml ONCE ONCE IV PUSH Last administered on at 11:42; Start 09/21/17 at 11:30; Stop 09/21/17 at 11:31; Status DC Albuterol Sulfate (Albuterol Concentrated Neb) 10 mg ONCE ONCE INH Last administered on 09/21/17at 11:30; Start 09/21/17 at 11:30; Stop 09/21/17 at 11:31 ; Status DC Sodium Chloride 500 ml @ 100 mls/hr Q5H IV Last administered on 09/21/17at 13: 38; Start 09/21/17 at 13:00; Stop 09/21/17 at 17:59; Status DC Sodium Chloride 1,000 ml @ 42 mls/hr [id number] IV Last administered on at 08:34; Start 09/21/17 at 21:00; Stop 09/24/17 at 08:24; Status DC Hydralazine HCl (Apresoline) 10 mg Q8HR PEG Last administered on 11/15/17at 05: 18; Start 09/24/17 at 14:00 Hydralazine HCl (Apresoline) 10 mg ONCE ONCE PEG Last administered on at 11:49; Start 09/24/17 at 09:00; Stop 09/24/17 at 09:01; Status DC Cefepime HCl 2000 mg/Sodium Chloride 100 ml @ 200 mls/hr Q8H IV Last administered on 09/29/17at 05:35; Start 09/25/17 at 12:00; Stop 09/29/17 at 08:46 ; Status DC Sodium Polystyrene Sulfonate (Kayexalate Liq) 15 gm ONCE ONCE RECTAL Last administered on 09/26/17at 10:51; Start 09/26/17 at 09:15; Stop 09/26/17 at 09:16 ; Status DC Sodium Polystyrene Sulfonate (Kayexalate Liq) 15 gm ONCE ONCE PEG Last administered on 09/27/17at 18:11; Start 09/27/17 at 17:15; Stop 09/27/17 at 17:16 ; Status DC Insulin Detemir (Levemir Inj) 10 units BID SQ Last administered on 09/29/17at 09 :37; Start 09/27/17 at 21:00; Stop 09/29/17 at 15:14; Status DC Doxazosin Mesylate (Cardura) 1 mg DAILY PO Last administered on 10/02/17at 07:59 ; Start 09/28/17 at 10:00; Stop 10/03/17 at 11:55; Status DC Ceftolozane/ Tazobactam 1500 mg/Sodium Chloride 100 ml @ 100 mls/hr Q8H IV Last administered on 09/30/17at 01:51; Start 09/29/17 at 10:00; Stop 09/30/17 at 10:38; Status DC Lactobacillus Acidophilus (Lactinex) 1 tab Q12HR PO Last administered on at 09:08; Start 09/29/17 at 21:00; Stop 10/03/17 at 11:55; Status DC Insulin Human NPH (NovoLIN N INJ) 7 units TID SQ Last administered on at 18:16; Start 09/29/17 at 18:00; Stop 10/01/17 at 19:07; Status DC Acetylcysteine (Mucomyst 10% Neb) 2 ml Q6HR NEB NEB ; Start 09/29/17 at 16:00; Stop 09/29/17 at 16:21; Status DC Acetylcysteine (Mucomyst 10% Neb) 2 ml Q6HR NEB NEB Last administered on at 08:30; Start 09/29/17 at 14:30; Stop 10/03/17 at 14:29; Status DC Metoclopramide HCl (Reglan Inj) 10 mg ONCE ONCE IV PUSH Last administered on at 22:11; Start 09/29/17 at 21:30; Stop 09/29/17 at 21:31; Status DC Trimethoprim/ Sulfamethoxazole (Bactrim 800-160 Mg/20 ml Liq) 20 ml BID PEG Last administered on 10/03/17at 09:08; Start 09/29/17 at 22:02; Stop 10/03/17 at 18 :48; Status DC Colistin Sulfate (Coly-Mycin M Neb) 75 mg Q8HR NEB NEB Last administered on at 07:29; Start 09/30/17 at 16:00; Stop 10/21/17 at 15:59; Status DC Insulin Human NPH (NovoLIN N INJ) 10 units TID SQ Last administered on at 18:43; Start 10/02/17 at 09:00; Stop 10/07/17 at 12:30; Status DC Sodium Polystyrene Sulfonate (Kayexalate Liq) 15 gm BID PO Last administered on 10/03/17at 10:09; Start 10/03/17 at 09:00; Stop 10/03/17 at 11:55; Status DC Sodium Chloride 1,000 ml @ 100 mls/hr Q10H IV Last administered on 10/03/17 20 :26; Start 10/03/17 at 08:30; Stop 10/03/17 at 22:36; Status DC Levofloxacin/ Dextrose 100 ml @ 100 mls/hr Q24H IV Last administered on 11:46; Start 10/03/17 at 10:00; Stop 10/03/17 at 20:03; Status DC Amlodipine Besylate (Norvasc) 10 mg DAILY PEG Last administered on 11/14/17 08 :31; Start 10/04/17 at 09:00 Calcium/Vitamin D (Oscal-D 250-125) 250 mg TID PEG Last administered on 17:26; Start 10/03/17 at 13:00 Cholecalciferol (Vitamin D3) 5,000 units DAILY PEG Last administered on 08:31; Start 10/04/17 at 09:00 Clonidine (Catapres) 0.1 mg Q6H PRN PEG SBP >160 Last administered on 10/08/17 09:03; Start 10/03/17 at 12:30 Doxazosin Mesylate (Cardura) 1 mg DAILY PEG Last administered on 11/14/17 08: 31; Start 10/04/17 at 09:00 Lactobacillus Acidophilus (Lactinex) 1 tab Q12HR PEG Last administered on 20:26; Start 10/03/17 at 21:00 Metoprolol Tartrate (Lopressor) 12.5 mg Q12HR PEG Last administered on 19:28; Start 10/03/17 at 21:00; Stop 10/26/17 at 08:47; Status DC Sodium Polystyrene Sulfonate (Kayexalate Liq) 15 gm BID PEG Last administered on 10/03/17 21:00; Start 10/03/17 at 21:00; Stop 10/05/17 at 14:49; Status DC Polyethylene Glycol (Miralax) 17 gm DAILY PRN PEG Constipation; Start 10/03/17 at 12:00 Protein (Beneprotein Powder) 1 pack TID PRN G-TUBE Constipation; Start 10/03/17 at 12:00 Albuterol Sulfate (Albuterol Neb) 2.5 mg Q2HR NEB PRN NEB WHEEZING Last administered on 10/19/17at 22:09; Start 10/03/17 at 21:45 Dextrose 1,000 ml @ 30 mls/hr Q24H IV ; Start 10/03/17 at 22:45; Status Cancel Dextrose (D50w (Vial) Inj) 25 ml ONCE ONCE IV PUSH Last administered on at 22:42; Start 10/03/17 at 22:45; Stop 10/03/17 at 22:46; Status DC Furosemide (Lasix Inj) 40 mg ONCE ONCE IV PUSH Last administered on 10/03/17at 22:46; Start 10/03/17 at 22:45; Stop 10/03/17 at 22:46; Status DC Dextrose 500 ml @ 10 mls/hr Q24H IV Last administered on 10/04/17at 15:49; Start 10/03/17 at 23:00; Stop 10/05/17 at 14:49; Status DC Fentanyl Citrate (fentaNYL INJ) 100 mcg STK-MED ONCE .ROUTE ; Start 10/03/17 at 22:47; Stop 10/03/17 at 22:48; Status DC Fentanyl Citrate (fentaNYL INJ) 100 mcg NOW ONCE IV PUSH ; Start 10/03/17 at 23: 00; Stop 10/03/17 at 23:01; Status DC Fentanyl Citrate (fentaNYL INJ) 50 mcg ONCE ONCE IV PUSH Last administered on 10/03/17at 23:00; Start 10/03/17 at 23:00; Stop 10/03/17 at 23:10; Status DC Fentanyl Citrate (fentaNYL INJ) 50 mcg Q1H PRN IV PUSH SEDATION; Start 10/03/17 at 23:00; Stop 10/29/17 at 10:46; Status DC Chlorhexidine Gluconate (Peridex 0.12% Liq) 15 ml BID@08,20 MT Last administered on 10/31/17at 21:41; Start 10/04/17 at 08:00; Stop 11/01/17 at 11:43; Status DC Furosemide (Lasix Inj) 40 mg ONCE ONCE IV PUSH Last administered on 10/04/17at 05:52; Start 10/04/17 at 05:00; Stop 10/04/17 at 05:01; Status DC Furosemide (Lasix Inj) 40 mg Q6HR IV PUSH Last administered on 10/06/17 05:28; Start 10/04/17 at 12:00; Stop 10/06/17 at 11:00; Status DC Insulin Human NPH (NovoLIN N INJ) 5 units BID@08,17 SQ Last administered on 10/10at 08:05; Start 10/07/17 at 17:00; Stop 10/10/17 at 11:33; Status DC Insulin Detemir (Levemir Inj) 7 units Q12H SQ Last administered on 10/25/17at 23 :55; Start 10/08/17 at 12:00; Stop 10/26/17 at 06:36; Status DC Dextrose (D50w (Vial) Inj) 50 ml UNSCH PRN IV PUSH HYPOGLYCEMIA-SEE COMMENTS Last administered on 10/28/17at 17:42; Start 10/08/17 at 09:45; Stop 11/04/17 at 12 :34; Status DC Glucagon (Glucagon Inj) 1 mg UNSCH PRN OTHER HYPOGLYCEMIA-SEE COMMENTS Last administered on 10/14/17at 00:45; Start 10/08/17 at 09:45; Stop 11/04/17 at 12:34; Status DC Insulin Human Regular (NovoLIN R SUPPLEMENTAL SCALE) 1 Q6HR SQ Last administered on 11/04/17at 06:00; Start 10/08/17 at 12:00; Stop 11/04/17 at 12:27; Status DC Water (Free Water) 250 ml Q8HR G-TUBE Last administered on 10/20/17at 05:20; Start 10/18/17 at 14:00; Stop 10/20/17 at 10:15; Status DC Water (Free Water) VOLUME OF WATER: ( 200 ) ML Q6HR G-TUBE Last administered on 10/27/17at 05:49; Start 10/20/17 at 12:00; Stop 10/27/17 at 10:02; Status DC Albuterol/ Ipratropium (Duoneb Neb) 1 ampule Q6HR NEB NEB Last administered on 10/29/17at 08:34; Start 10/25/17 at 10:00; Stop 10/29/17 at 09:59; Status DC Insulin Detemir (Levemir Inj) 8 units Q12H SQ Last administered on 11/15/17at 00 :01; Start 10/26/17 at 12:00 Acetaminophen (Tylenol 650 Mg/ 20 ml Liq) 650 mg Q6H PRN PEG fever; Start 10/26 at 06:45 Oxycodone HCl (Roxicodone Intensol Liq) 5 mg Q6H PRN PO pain 6-10; Start at 11:00 Iohexol (Omnipaque 350 Inj) 75 ml STK-MED ONCE IVCONTRAST Last administered on 11/01/17at 16:59; Start 11/01/17 at 16:59; Stop 11/01/17 at 17:00; Status DC Dextrose (D50w (Vial) Inj) 50 ml UNSCH PRN IV PUSH HYPOGLYCEMIA-SEE COMMENTS; Start 11/04/17 at 12:30 Glucagon (Glucagon Inj) 1 mg UNSCH PRN OTHER HYPOGLYCEMIA-SEE COMMENTS; Start 11/04/17 at 12:30 Insulin Human Regular (NovoLIN R SUPPLEMENTAL SCALE) 1 Q6H SQ Last administered on 11/15/17at 05:32; Start 11/04/17 at 12:30 Dextrose (D50w (Vial) Inj) 25 ml ONCE ONCE IV PUSH Last administered on at 12:54; Start 11/04/17 at 12:30; Stop 11/04/17 at 12:35; Status DC Metoclopramide HCl (Reglan Inj) 10 mg Q8HR IV PUSH Last administered on at 05:41; Start 11/05/17 at 22:00; Stop 11/07/17 at 13:32; Status DC Amoxicillin/ Clavulanate Potassium (Augmentin 600 Mg/5 ml Liq) 600 mg Q12H PO Last administered on 11/13/17at 23:56; Start 11/07/17 at 12:00; Stop 11/14/17 at 11:59; Status DC Metoclopramide HCl (Reglan Liq) 10 mg Q8HR PO Last administered on 11/15/17at 05:18; Start 11/07/17 at 14:30 Albuterol/ Ipratropium (Duoneb Neb) 1 ampule Q6HR NEB NEB Last administered on 11/12/17at 09:08; Start 11/08/17 at 10:30; Stop 11/12/17 at 10:29; Status DC Cholestyramine Resin (Questran Light Pkt) 4 gm BID PRN PEG DIARRHEA; Start at 13:30 Furosemide (Lasix Inj) 20 mg BID@,18 IV PUSH Last administered on 11/14/17at 08:32; Start 11/13/17 at 17:00; Stop 11/14/17 at 14:49; Status DC Furosemide (Lasix Inj) 20 mg DAILY IV PUSH ; Start 11/15/17 at 09:00; Stop 11/16 at 08:59 A/P Problem List: (1) Acute ischemic left middle cerebral artery (MCA) stroke ICD Code: I63.512 - Cerebral infarction due to unspecified occlusion or stenosis of left middle cerebral artery Status: Acute (2) Acute respiratory failure ICD Code: J96.00 - Acute respiratory failure, unspecified whether with hypoxia or hypercapnia (3) Right hemiplegia ICD Code: G81.91 - Hemiplegia, unspecified affecting right dominant side Status: Acute (4) Sacral decubitus ulcer ICD Code: L89.159 - Pressure ulcer of sacral region, unspecified stage Status: Chronic (5) HCAP (healthcare-associated pneumonia) ICD Code: J18.9 - Pneumonia, unspecified organism Status: Resolved (6) 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 She underwent ORIF on 04/21/17 and on 04/24 a stroke alert was called as she was found to have right hemiparesis with left gaze. She has a poor prognosis based on her lack of overall recovery over the last 6+ months. Patient has no acute issues, no change in care plan. Shortness of breath/desaturation-chest x-ray done 11/13/2017, personally reviewed , has evidence of pulmonary edema, started on Lasix 20 mg IV twice a day, BMP stable, not on fluids. Had another episode of desaturation today but corrected with suctioning. Will reduce to Lasix 20 mg IV daily until tomorrow and possibly discontinue or switch to oral if needed. Recheck BMP tomorrow. Urinary retention No leukocytosis U/A with large leuk esterase but many squamous cells Culture grew Aerococcus, finished Augmentin November 07 - November 14. Le[place] in place. Elevated D-dimer Ordered 10/31 for increasing FiO2 demand Since D-dimer elevated, CTA chest obtained to r/o PE which was negative Likely elevated in light of chronic illness RUE U/S negative for DVT - elevate R arm Left MCA stroke 5.5 mm of [id number] subfalcine herniation, diagnosed 04/24. Was not a candidate for thrombolysis at that time. Increasing edema seen on repeat CT 04/28 with a reduction in midline shift on another repeat on 04/30 Neurologic condition remained poor and she underwent trach 05/15/17 and PEG Persistent right-sided hemiparesis. Previously seen by neurology, signed off Previously seen by neurosurgery, signed off Continue daily ASA Hypertension / CHF Amlodipine 10 mg po daily, Doxazosin 1 mg peg daily, hydralazine 10 mg per per peg q8 hours. Clonidine 0.1 mg q6h prn Echo 10/06/17 LVSF EF = 25-30%. Chronic Tracheostomy /respiratory failure 10/22/2017 Pulmonary toilet, trach care Duo nebs as needed Pulm following, appreciate assistance Large left pneumothorax Resolved Chest tube placed 05/07, discontinued 05/12/17 Hepatitis C LFTs normalized Negative genotype/viral load Diabetes mellitus SSI Novolin R High-dose scale Levemir insulin 8u Q12 FEN PEG tube feeding with Glucerna 1.5 goal 45 cc/hr, per nutrition recommendations Loose Stools patient has been checked for Cdiff on multiple occasions, most recently 11/04 Cdiff negative already on lactinex bid 11/12 will add questran bid and monitor for improvement, consider increasing dose as needed Anal Fissure continue wound care DVT prophylaxis Heparin Discharge Planning Aggressive therapy, full code per palliative. Needs placement Problem Qualifiers (1) Acute respiratory failure: Qualified Codes: J96.00 - Acute respiratory failure, unspecified whether with hypoxia or hypercapnia (2) Sacral decubitus ulcer: Qualified Codes: L89.152 - Pressure ulcer of sacral region, stage 2 (3) Chronic respiratory failure: Qualified Codes: J96.11 - Chronic respiratory failure with hypoxia Ricardo Shafer DO Nov 15, 2017 09:22
[2017-11-16] VITALS (8 sets, daily range): BP systolic 110–143; BP diastolic 52–72; PULSE 68–78; RESP 16–26; TEMP 97–99.1; O2SAT 97–99
[2017-11-16] MEDS: INSULIN NovoLIN REGULAR SUPPLEMENTAL SCALE SQ SCH ×5 (00:30→23:55)
[2017-11-16] MEDS: ARTIFICIAL TEARS OPTH SOLN 15 ML BTL EACH EYE SCH ×3 (06:00→20:30)
[2017-11-16] MEDS: METOCLOPRAMIDE HCL SYRUP 10 MG/10 ML UDC PO SCH ×3 (06:55→23:55)
[2017-11-16] MEDS: HEPARIN SODIUM - SQ 10,000 UNITS/ML VIAL SQ SCH ×3 (06:55→20:29)
[2017-11-16] MEDS: hydrALAZINE HCL 10 MG TAB PEG SCH ×3 (06:55→20:29)
[2017-11-16] MEDS: SODIUM CHLORIDE 0.9% FLUSH 5 ML FLUSH IV FLUSH SCH (09:00)
[2017-11-16] MEDS: CALCIUM/VITAMIN D 250 MG/125 U TAB PEG SCH ×3 (09:34→17:27)
[2017-11-16] MEDS: CHOLECALCIFEROL (VIT D3) 5000 UNIT CAP PEG SCH (09:35)
[2017-11-16] MEDS: ASPIRIN 325 MG TAB DOBHOFF SCH (09:35)
[2017-11-16] MEDS: LANSOPRAZOLE SOLUTAB 30 MG TAB NG SCH (09:35)
[2017-11-16] MEDS: DOXAZOSIN MESYLATE 1 MG TAB PEG SCH (09:35)
[2017-11-16] MEDS: LACTOBACILLUS ACIDOPHILUS TAB PEG SCH ×2 (09:35→20:29)
[2017-11-16 10:42] LABS: AUTOMATED NEUTROPHIL # 6.1 TH/MM3 (1.8-7.7); BASOPHIL # 0.1 TH/MM3 (0-0.2); BASOPHIL % 1.3 % (0.0-2.0); EOSINOPHIL # 0.3 TH/MM3 (0-0.4); EOSINOPHIL % 2.8 % (0.0-4.0); HEMATOCRIT 27.2 % (35.0-46.0); HEMOGLOBIN 9.5 GM/DL (11.6-15.3); LYMPH % 25.5 % (9.0-44.0); LYMPHOCYTE # 2.5 TH/MM3 (1.0-4.8); MEAN CELL VOLUME 99.8 FL (80.0-100.0); MEAN CORPUSCULAR HGB CONC 35.1 % (32.0-36.0); MEAN PLATELET VOLUME 8.8 FL (7.0-11.0); MONO % 7.2 % (0.0-8.0); MONOCYTE # 0.7 TH/MM3 (0-0.9); NEUT % 63.2 % (16.0-70.0); PLATELET COUNT 352 TH/MM3 (150-450); RED BLOOD COUNT 2.73 MIL/MM3 (4.00-5.30); RED CELL DISTRIBUTION WIDTH 15.9 % (11.6-17.2); WHITE BLOOD COUNT 9.7 TH/MM3 (4.0-11.0)
[2017-11-16] MEDS ORDERED: SODIUM CHLORIDE 0.9% FLUSH 10 ML FLUSH IV FLUSH SCH (10:45)
[2017-11-16 11:05] LABS: ALBUMIN 2.4 GM/DL (3.4-5.0); ALT (GPT) 24 U/L (10-53); BLOOD UREA NITROGEN 26 MG/DL (7-18); CALCIUM 8.6 MG/DL (8.5-10.1); CHLORIDE 101 MEQ/L (98-107); CREATININE 0.46 MG/DL (0.50-1.00); GLOMERULAR FILTRATION RATE 132 ML/MIN (>89); GLUCOSE,RANDOM 165 MG/DL (74-106); PHOSPHORUS 2.7 MG/DL (2.5-4.9); SODIUM (NA) 139 MEQ/L (136-145)
[2017-11-16 11:20] LABS: ALKALINE PHOSPHATASE 118 U/L (45-117); AST (GOT) 21 U/L (15-37); FREE T4 0.79 NG/DL (0.76-1.46); TOTAL BILIRUBIN ADULT 0.2 MG/DL (0.2-1.0); TOTAL PROTEIN 6.4 GM/DL (6.4-8.2)
[2017-11-16] MEDS: INSULIN DETEMIR 100 UNITS/ML VIAL SQ SCH ×3 (11:33→23:55)
[2017-11-16 12:54] LABS: HEMOGLOBIN A1C 5.3 % (4.3-6.0)
--- NOTE | 2017-11-16 14:27 | HHI.PR ---
Subjective Remarks Review of systems unobtainable Discussed with RN Patient remains nonverbal opens eyes - NO NEW ISSUES PER RN CONTINUE CURRENT TREATMENTS Objective Vitals Vital Signs Date Time Temp Pulse Resp B/P (MAP) Pulse Ox O2 Delivery O2 Flow Rate FiO2 11/16/17 12:00 98.6 71 24 130/60 (83) 98 11/16/17 08:00 98.5 68 26 110/60 (77) 98 11/16/17 04:00 97.0 72 20 141/52 (81) 98 11/16/17 00:25 97 T-piece 6.00 28 11/16/17 00:00 98.5 74 16 135/71 (92) 98 11/15/17 20:38 98.5 71 18 140/71 (94) 99 11/15/17 16:00 98.3 80 18 138/69 (92) 99 I/O 11/15/17 11/15/17 11/15/17 11/16/17 11/16/17 11/16/17 07:00 15:00 23:00 07:00 15:00 23:00 Intake Total 795 ml 760 ml 1105 ml Output Total 900 ml 600 ml 1300 ml Balance -105 ml 160 ml -195 ml Tube Feeding 395 ml 500 ml 460 ml Other 400 ml 260 ml 645 ml Output Urine Total 900 ml 600 ml 1300 ml Bladder Scan Volume Amount 1000 ml 1000 ml # Bowel Movements 2 1 1 Result Diagram: 11/16/17 0947 11/16/17 0947 Other Results Laboratory Tests Test 11/14/17 04:18 11/15/17 07:33 11/16/17 09:47 Blood Urea Nitrogen 29 MG/DL 25 MG/DL 26 MG/DL Creatinine 0.45 MG/DL 0.47 MG/DL 0.46 MG/DL Random Glucose 130 MG/DL 165 MG/DL 165 MG/DL Calcium Level 9.2 MG/DL 8.8 MG/DL 8.6 MG/DL Sodium Level 137 MEQ/L 139 MEQ/L 139 MEQ/L Potassium Level 4.4 MEQ/L 4.3 MEQ/L 4.2 MEQ/L Chloride Level 99 MEQ/L 100 MEQ/L 101 MEQ/L Carbon Dioxide Level 30.2 MEQ/L 31.7 MEQ/L 33.0 MEQ/L Anion Gap 8 MEQ/L 7 MEQ/L 5 MEQ/L Estimat Glomerular Filtration Rate 136 ML/MIN 129 ML/MIN 132 ML/MIN White Blood Count 9.7 TH/MM3 Red Blood Count 2.73 MIL/MM3 Hemoglobin 9.5 GM/DL Hematocrit 27.2 % Mean Corpuscular Volume 99.8 FL Mean Corpuscular Hemoglobin 35.0 PG Mean Corpuscular Hemoglobin Concent 35.1 % Red Cell Distribution Width 15.9 % Platelet Count 352 TH/MM3 Mean Platelet Volume 8.8 FL Neutrophils (%) (Auto) 63.2 % Lymphocytes (%) (Auto) 25.5 % Monocytes (%) (Auto) 7.2 % Eosinophils (%) (Auto) 2.8 % Basophils (%) (Auto) 1.3 % Neutrophils # (Auto) 6.1 TH/MM3 Lymphocytes # (Auto) 2.5 TH/MM3 Monocytes # (Auto) 0.7 TH/MM3 Eosinophils # (Auto) 0.3 TH/MM3 Basophils # (Auto) 0.1 TH/MM3 CBC Comment AUTO DIFF Differential Comment AUTO DIFF CONFIRMED Total Protein 6.4 GM/DL Albumin 2.4 GM/DL Phosphorus Level 2.7 MG/DL Magnesium Level 2.0 MG/DL Alkaline Phosphatase 118 U/L Aspartate Amino Transf (AST/SGOT) 21 U/L Alanine Aminotransferase (ALT/SGPT) 24 U/L Total Bilirubin 0.2 MG/DL Hemoglobin A1c 5.3 % Free Thyroxine 0.79 NG/DL Thyroid Stimulating Hormone 3rd Gen 5.270 uIU/ML Imaging Last Impressions Chest X-Ray 11/13/17 0000 Signed Impressions: Service Date/Time: October 15:36 - CONCLUSION: 1. Cardiomegaly with worsening pulmonary edema pattern. 2. Probable trace left pleural effusion. Alejo De La Vega MD Upper Extremity Ultrasound 11/04/17 0000 Signed Impressions: Service Date/Time: Saturday, November 04, 2017 09:57 - CONCLUSION: No thrombus observed. Subcutaneous edema noted. Deangelo Wren Jr., MD Abdomen X-Ray 11/04/17 0000 Signed Impressions: Service Date/Time: Saturday, November 04, 2017 11:58 - CONCLUSION: Gaseous distention of bowel loops could be ileus but unchanged. Benja Ramsey MD CT Angiography 11/01/17 0000 Signed Impressions: Service Date/Time: Wednesday, November 01, 2017 16:47 - CONCLUSION: No evidence for pulmonary embolism. Please see above. Choco Mustafa MD Thoracentesis 08/05/17 1535 Signed Impressions: Service Date/Time: Saturday, August 05, 2017 16:08 - CONCLUSION: Uncomplicated CT-guided thoracentesis. Sage Adler MD Chest Ultrasound 08/02/17 0000 Signed Impressions: Service Date/Time: Tuesday, August 01, 2017 22:06 - CONCLUSION: 1. Moderate right pleural effusion, as above. Alejo De La Vega MD Hip and Pelvis X-Ray 07/09/17 0000 Signed Impressions: Service Date/Time: Sunday, July 09, 2017 14:04 - CONCLUSION: Anatomic alignment. Ricardo Middleton MD FACR Liver Ultrasound 06/19/17 0000 Signed Impressions: Service Date/Time: June 13:20 - CONCLUSION: 1. Mildly increased echotexture of the liver characteristic of hepatic steatosis. 2. Gallbladder sludge. Obdulio Sam MD Head CT 05/15/17 0000 Signed Impressions: Service Date/Time: May 19:59 - CONCLUSION: 1. 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 2. No bleed or new/acute infarct. Obdulio Simms MD Gall Bladder Ultrasound 05/08/17 0000 Signed Impressions: Service Date/Time: May 08:23 - CONCLUSION: Focally unremarkable appearance of the gallbladder Obdulio Chun MD Abdomen/Pelvis CT 05/07/17 0000 Signed Impressions: Service Date/Time: Sunday, May 07, 2017 13:23 - CONCLUSION: 1. Large left pneumothorax. 2. Bilateral lower lobe consolidation and bilateral moderate size pleural effusions. 3. Significant soft tissue thickening of the right lateral chest wall and left gluteus muscle. 4. Mild ascites. The findings were called to Dr. Carney. Deangelo Zamora MD Chest CT 04/30/17 0000 Signed Impressions: Service Date/Time: Sunday, April 30, 2017 09:20 - CONCLUSION: 1. Bilateral pulmonary infiltrates more pronounced within the lower lobes with tiny bilateral pleural effusions. Material seen filling the lower lobe bronchi bilaterally either related to purulent material or perhaps mucus plugging. Deangelo Wren Jr., MD Carotid Artery Ultrasound 04/24/17 0000 Signed Impressions: Service Date/Time: April 09:45 - CONCLUSION: 1. No hemodynamically significant carotid artery stenosis. Arnie Middleton MD Hip X-Ray 04/21/17 0000 Signed Impressions: Service Date/Time: Friday, April 21, 2017 11:36 - CONCLUSION: Fluoroscopic images during placement of intramedullary siomara left femur. Benja Ramsey MD Objective Remarks GENERAL: Awake follows no commands left side is flaccid can move right side review of systems is unobtainable SKIN: Warm and dry. HEAD: Atraumatic. Normocephalic. EYES: Pupils equal and round. No scleral icterus. No injection or drainage. ENT: No nasal bleeding or discharge. Mucous membranes pink and moist. NECK: Trachea midline. No JVD. Supple tracheostomy in place CARDIOVASCULAR: Regular rate and rhythm. S1-S2 no S3 or S4 RESPIRATORY: No accessory muscle use. Clear to auscultation. Breath sounds equal bilaterally. GASTROINTESTINAL: Abdomen soft, non-tender, nondistended. Hepatic and splenic margins not palpable. PEG tube in place MUSCULOSKELETAL: Extremities without clubbing, cyanosis, or edema. No obvious deformities. NEUROLOGICAL: Awake and alert. No obvious cranial nerve deficits. Motor grossly within normal limits. Moves left side does not follow commands. No speech. PSYCHIATRIC: INAppropriate mood and affect; insight and judgment ABnormal. Procedures PEG tube Medications and IVs Current Medications Potassium Chloride 100 ml @ As Directed STK-MED ONCE .ROUTE Last administered on 04/20/17 13:58; Start 04/20/17 at 13:50; Stop 04/20/17 at 13:51; Status DC Sodium Chloride 1,000 ml @ 250 mls/hr Q4H IV ; Start 04/20/17 at 14:30; Stop at 21:57; Status DC Dextrose/Sodium Chloride 1,000 ml @ 200 mls/hr Q5H IV Last administered on 14:30; Start 04/20/17 at 14:30; Stop 04/20/17 at 21:57; Status DC Miscellaneous Medication ([facility]) Mix all IV Medications in Nor... UNSCH .XX ; Start 04/20/17 at 14:30; Stop 04/20/17 at 21:57; Status DC Potassium Chloride 100 ml @ 100 mls/hr Q1H PRN IV SEE PROTOCOL; Start at 14:30; Stop 04/20/17 at 21:57; Status DC Potassium Chloride 100 ml @ 50 mls/hr Q2H PRN IV SEE PROTOCOL; Start 04/20/17 at 14:30; Stop 04/20/17 at 21:57; Status DC Potassium Chloride 100 ml @ 100 mls/hr Q1H PRN IV SEE PROTOCOL; Start at 14:30; Stop 04/20/17 at 21:57; Status DC Potassium Chloride 100 ml @ 100 mls/hr Q1H PRN IV SEE PROTOCOL TABLE; Start at 14:30; Stop 04/20/17 at 21:57; Status DC Potassium Chloride 100 ml @ 50 mls/hr Q2H PRN IV SEE PROTOCOL; Start 04/20/17 at 14:30; Stop 04/20/17 at 21:57; Status DC Potassium Chloride 100 ml @ 50 mls/hr Q2H PRN IV SEE PROTOCOL TABLE; Start at 14:30; Stop 04/20/17 at 21:57; Status DC Potassium Chloride 100 ml @ 50 mls/hr Q2H PRN IV SEE PROTOCOL TABLE; Start at 14:30; Stop 04/20/17 at 21:57; Status DC Potassium Chloride 100 ml @ 50 mls/hr Q2H PRN IV SEE PROTOCOL TABLE; Start at 14:30; Stop 04/20/17 at 21:57; Status DC Insulin Human Regular (NovoLIN R INJ) 0.1 units/ Kg actual body weight BOLUS ONCE IV PUSH Last administered on 04/20/17t 15:51; Start 04/20/17 at 14:30; Stop 04/20/17 at 14:31; Status DC Insulin Human Regular 100 units/ Sodium Chloride 100 ml @ 0 mls/hr TITRATE IV ; Start 04/20/17 at 14:30; Stop 04/20/17 at 21:57; Status DC Dextrose (D50w (Vial) Inj) 50 ml Q10M PRN IV PUSH HYPOGLYCEMIA DKA -SEE COMMENTS; Start 04/20/17 at 14:30; Stop 04/20/17 at 21:57; Status DC Sodium Bicarbonate (Sodium Bicarbonate 8.4% Inj) 100 meq STAT PRN IV SEE LABEL COMMENTS; Start 04/20/17 at 14:30; Stop 04/20/17 at 21:57; Status DC Sodium Bicarbonate (Sodium Bicarbonate 8.4% Inj) 50 meq STAT PRN IV SEE LABEL COMMENTS; Start 04/20/17 at 14:30; Stop 04/20/17 at 21:57; Status DC Sodium Phosphate 15 mmol/Sodium Chloride 105 ml @ 25 mls/hr UNSCH PRN IV SEE PROTOCOL TABLE; Start 04/20/17 at 14:30; Stop 04/20/17 at 21:57; Status DC Acetaminophen (Tylenol) 650 mg Q6H PRN PO PAIN SCALE 1 TO 2 Last administered on 05/03/17 00:27; Start 04/20/17 at 14:30; Stop 05/07/17 at 12:46; Status DC Ondansetron HCl (Zofran Inj) 4 mg Q6H PRN IV PUSH NAUSEA AND VOMITING Last administered on 04/30/17 02:28; Start 04/20/17 at 15:00; Stop 08/04/17 at 16:22 ; Status DC Heparin Sodium (Porcine) (Heparin Inj) 5,000 units Q12HR SQ Last administered on 04/20/17 21:00; Start 04/20/17 at 21:00; Stop 04/21/17 at 11:44; Status DC Morphine Sulfate (Morphine Inj) 1 mg Q3H PRN IV Pain 3-5; if unable to take PO Last administered on 04/28/17 18:15; Start 04/20/17 at 17:15; Stop 05/19/17 at 07:55; Status DC Morphine Sulfate (Morphine Inj) 2 mg Q3H PRN IV Pain 6-10;if unable to take PO Last administered on 04/30/17 02:29; Start 04/20/17 at 17:15; Stop 05/19/17 at 07:55; Status DC Naloxone HCl (Narcan Inj) 0.4 mg UNSCH PRN IV SEE LABEL COMMENTS; Start at 17:15 Senna/Docusate Sodium (Nalini-Colace) 1 tab BID PO Last administered on 05/07/17 10:30; Start 04/20/17 at 21:00; Stop 05/07/17 at 12:50; Status DC Magnesium Hydroxide (Milk Of Magnesia Liq) 30 ml Q12H PRN PO MILD - MODERATE CONSTIPATION; Start 04/20/17 at 20:30; Stop 07/26/17 at 16:12; Status DC Sennosides (Senokot) 17.2 mg Q12H PRN PO MODERATE - SEVERE CONSTIPATION Last administered on 04/23/17 22:55; Start 04/20/17 at 20:30; Stop 05/19/17 at 08:05 ; Status DC Bisacodyl (Dulcolax Supp) 10 mg DAILY PRN RECTAL SEVERE CONSITIPATION; Start at 20:30; Stop 07/26/17 at 16:12; Status DC Lactulose (Lactulose Liq) 30 ml DAILY PRN PO SEVERE CONSITIPATION; Start at 20:30; Stop 05/05/17 at 09:24; Status DC Dextrose (D50w (Vial) Inj) 50 ml UNSCH PRN IV HYPOGLYCEMIA-SEE COMMENTS; Start 04/20/17 at 21:45; Stop 04/24/17 at 09:34; Status DC Glucagon (Glucagon Inj) 1 mg UNSCH PRN OTHER HYPOGLYCEMIA-SEE COMMENTS; Start 04/20/17 at 21:45; Stop 04/24/17 at 09:34; Status DC Insulin Aspart (NovoLOG SUPPLEMENTAL SCALE) 1 ACHS SLIDING SCALE SQ Last administered on 04/24/17 06:43; Start 04/21/17 at 07:00; Stop 04/24/17 at 09:35 ; Status DC Calcium Carbonate (Oscal) 500 mg ONCE ONCE PO ; Start 04/21/17 at 07:00; Stop 04/21/17 at 07:11; Status DC Sodium Phosphate 15 mmol/Sodium Chloride 155 ml @ 38.75 mls/ hr ONCE ONCE IV Last administered on 04/21/17 09:32; Start 04/21/17 at 07:00; Stop 04/21/17 at 10:59; Status DC Sodium Chloride 1,000 ml @ 75 mls/hr [id number] IV ; Start 04/21/17 at 09:03; Stop 04/21/17 at 09:03; Status DC Sodium Chloride 1,000 ml @ 100 mls/hr Q10H IV Last administered on 04/23/17 02:15; Start 04/21/17 at 09:03; Stop 04/24/17 at 09:12; Status DC Cefazolin Sodium (Ancef Inj) 1,000 mg STK-MED ONCE .ROUTE Last administered on 04/21/17 10:38; Start 04/21/17 at 10:30; Stop 04/21/17 at 10:31; Status DC Gentamicin Sulfate (Gentamicin Inj) 160 mg STK-MED ONCE .ROUTE Last administered on 04/21/17 11:36; Start 04/21/17 at 10:30; Stop 04/21/17 at 10:31 ; Status DC Vancomycin HCl (Vancomycin Inj) 1,000 mg STK-MED ONCE .ROUTE Last administered on 04/21/17 11:04; Start 04/21/17 at 10:40; Stop 04/21/17 at 10:41; Status DC Bupivacaine HCl/ Epinephrine Bitart (Sensorcaine-Epinephrine 0.25% Inj) 50 ml STK-MED ONCE .ROUTE Last administered on 04/21/17 11:39; Start 04/21/17 at 11: 39; Stop 04/21/17 at 11:40; Status DC IV Flush (NS Flush) 2 ml UNSCH PRN IVF FLUSH AFTER USING IV ACCESS; Start 04/21 at 11:45; Stop 04/24/17 at 09:34; Status DC IV Flush (NS Flush) 2 ml BID IVF Last administered on 04/23/17 07:51; Start at 21:00; Stop 04/24/17 at 09:34; Status DC Enoxaparin Sodium (Lovenox Inj) 30 mg Q24H SQ Last administered on 04/23/17 11 :01; Start 04/22/17 at 11:00; Stop 04/24/17 at 18:07; Status DC Cefazolin Sodium 1000 mg/Sodium Chloride 100 ml @ 200 mls/hr Q8H IV Last administered on 04/22/17 09:07; Start 04/21/17 at 18:00; Stop 04/22/17 at 10:29 ; Status DC Calcium/Vitamin D (Oscal-D 250-125) 250 mg TID PO Last administered on at 09:56; Start 04/21/17 at 13:00; Stop 10/03/17 at 11:55; Status DC Diphenhydramine HCl (Benadryl) 25 mg Q6H PRN PO ITCHING; Start 04/21/17 at 11: 45; Stop 04/24/17 at 08:24; Status DC Acetaminophen/ Hydrocodone Bitart ([place] 7.5-325 Mg) 1 tab Q3H PRN PO pain 3< 10 Last administered on 05/03/17 20:17; Start 04/21/17 at 11:45; Stop 05/07/17 at 12:46; Status DC Cholecalciferol (Vitamin D3) 5,000 units DAILY PO Last administered on 09:08; Start 04/22/17 at 09:00; Stop 10/03/17 at 11:55; Status DC Ergocalciferol (Drisdol) 50,000 units ONCE ONCE PO ; Start 04/21/17 at 13:00; Stop 04/21/17 at 13:01; Status DC Midazolam HCl (Versed Inj) 2 mg STK-MED ONCE .ROUTE ; Start 04/21/17 at 12:15; Stop 04/21/17 at 12:16; Status DC Fentanyl Citrate (fentaNYL INJ) 250 mcg STK-MED ONCE .ROUTE ; Start 04/21/17 at 12:16; Stop 04/21/17 at 12:17; Status DC Morphine Sulfate (*morphine INJ PERIprocedure ONLY) 8 mg STK-MED ONCE .ROUTE Last administered on 04/21/17 12:37; Start 04/21/17 at 12:36; Stop 04/21/17 at 12:37; Status DC Miscellaneous Information ALL NURSING DEPARTME... UNSCH PRN .XX SEE LABEL COMMENTS; Start 04/21/17 at 13:00; Stop 04/22/17 at 12:59; Status DC Calcium Carbonate (Oscal) 500 mg ONCE ONCE PO ; Start 04/24/17 at 08:00; Stop 04/24/17 at 08:01; Status DC Sodium Chloride 1,000 ml @ 70 mls/hr [id number] IV ; Start 04/24/17 at 09:15; Stop 04/24/17 at 09:37; Status DC IV Flush (NS Flush) 2 ml BID IV FLUSH Last administered on 11/16/17at 09:00; Start 04/24/17 at 21:00; Stop 11/16/17 at 10:52; Status DC IV Flush (NS Flush) 2 ml UNSCH PRN IV FLUSH FLUSH AFTER USING IV ACCESS Last administered on 09/17/17at 08:48; Start 04/24/17 at 09:30 Sodium Chloride 1,000 ml @ 70 mls/hr [id number] IV Last administered on 03:38; Start 04/24/17 at 09:25; Stop 04/30/17 at 07:51; Status DC Aspirin (Aspirin Supp) 300 mg DAILY RECTAL Last administered on 04/26/17 08:38 ; Start 04/24/17 at 09:30; Stop 04/26/17 at 15:21; Status DC Insulin Aspart (NovoLOG SUPPLEMENTAL SCALE) 1 ACHS SQ Last administered on 04/24 17:29; Start 04/24/17 at 11:00; Stop 04/24/17 at 18:07; Status DC Dextrose (D50w (Vial) Inj) 50 ml UNSCH PRN IV PUSH HYPOGLYCEMIA-SEE COMMENTS; Start 04/24/17 at 09:30; Stop 04/24/17 at 18:07; Status DC Glucagon (Glucagon Inj) 1 mg UNSCH PRN OTHER HYPOGLYCEMIA-SEE COMMENTS; Start 04/24/17 at 09:30; Stop 04/24/17 at 18:07; Status DC Insulin Aspart (NovoLOG SUPPLEMENTAL SCALE) 1 Q4HR SQ ; Start 04/24/17 at 18:15 ; Stop 04/24/17 at 20:43; Status DC Dextrose (D50w (Vial) Inj) 25 ml UNSCH PRN IV HYPOGLYCEMIA-SEE COMMENTS; Start 04/24/17 at 18:15; Stop 04/26/17 at 20:28; Status DC Glucagon (Glucagon Inj) 1 mg UNSCH PRN IM/SQ HYPOGLYCEMIA-SEE COMMENTS; Start 04/24/17 at 18:15; Stop 05/21/17 at 13:34; Status DC Insulin Aspart (NovoLOG SUPPLEMENTAL SCALE) 1 Q4H SQ Last administered on 03:48; Start 04/24/17 at 22:00; Stop 04/26/17 at 09:43; Status DC Insulin Detemir (Levemir Inj) 10 units HS SQ Last administered on 04/25/17 23: 46; Start 04/25/17 at 21:00; Stop 04/26/17 at 09:43; Status DC Insulin Detemir (Levemir Inj) 20 units BID SQ Last administered on 04/26/17 11 :05; Start 04/26/17 at 10:00; Stop 04/27/17 at 08:34; Status DC Mannitol (Mannitol Inj) 12.5 gm Q6HR IV Last administered on 04/26/17 11:06; Start 04/26/17 at 12:00; Stop 04/28/17 at 18:33; Status DC Dextrose (D50w (Vial) Inj) 50 ml UNSCH PRN IV HYPOGLYCEMIA-SEE COMMENTS; Start 04/26/17 at 09:45; Status UNV Glucagon (Glucagon Inj) 1 mg UNSCH PRN OTHER HYPOGLYCEMIA-SEE COMMENTS; Start 04/26/17 at 09:45; Status UNV Insulin Aspart (NovoLOG SUPPLEMENTAL SCALE) 1 ACHS SLIDING SCALE SQ Last administered on 04/26/17 11:48; Start 04/26/17 at 11:00; Stop 04/26/17 at 15:24 ; Status DC Insulin Aspart (NovoLOG SUPPLEMENTAL SCALE) 1 Q4HR SQ Last administered on 04/28 09:38; Start 04/26/17 at 16:00; Stop 04/28/17 at 15:40; Status DC Aspirin (Aspirin) 325 mg DAILY DOBHOFF Last administered on 11/16/17at 09:35; Start 04/27/17 at 09:00 Dextrose (D50w (Syr) Inj) 25 ml UNSCH PRN IV HYPOGLYCEMIA- SEE COMMENTS Last administered on 05/18/17 00:22; Start 04/26/17 at 20:30; Stop 05/19/17 at 08:01 ; Status DC Metoprolol Tartrate (Lopressor Inj) 5 mg Q5M PRN IV PUSH HR>150 Last administered on 06/02/17 03:21; Start 04/27/17 at 04:00; Stop 07/12/17 at 01: 05; Status DC Insulin Detemir (Levemir Inj) 15 units BID SQ Last administered on 04/28/17 09 :39; Start 04/27/17 at 09:00; Stop 04/28/17 at 15:36; Status DC Potassium Chloride 100 ml @ 50 mls/hr Q2H PRN IV For Potassium 2.8 - 3.2 mEq/L ; Start 04/27/17 at 08:45; Stop 07/12/17 at 00:31; Status DC Potassium Chloride 100 ml @ 50 mls/hr Q2H PRN IV For Potassium 2.8 - 3.2 mEq/ L Last administered on 05/18/17 10:41; Start 04/27/17 at 08:45; Stop 07/12/17 at 00:31; Status DC Potassium Bicarb/ Potassium Chloride (K-Lyte Cl Eff) 50 meq UNSCH PRN PO For Potassium 3.3 - 3.5 mEq/L; Start 04/27/17 at 08:45; Stop 07/12/17 at 00:31; Status DC Potassium Chloride 100 ml @ 25 mls/hr UNSCH PRN IV For Potassium 3.3 - 3.5 mEq /L Last administered on 05/04/17 19:07; Start 04/27/17 at 08:45; Stop 07/12/17 at 00:31; Status DC Potassium Chloride 100 ml @ 50 mls/hr Q2H PRN IV For Potassium 3.3 - 3.5 mEq/ L Last administered on 05/18/17 08:29; Start 04/27/17 at 08:45; Stop 07/12/17 at 00:31; Status DC Magnesium Sulfate 4 gm/Sodium Chloride 100 ml @ 50 mls/hr UNSCH PRN IV For Magnesium 0.9 - 1.1 mg/dL; Start 04/27/17 at 08:45; Stop 07/12/17 at 00:31; Status DC Magnesium Oxide (Mag-Ox) 800 mg UNSCH PRN PO For Magnesium 1.2 - 1.6 mg/dL; Start 04/27/17 at 08:45; Stop 07/12/17 at 00:31; Status DC Magnesium Sulfate 2 gm/Sodium Chloride 100 ml @ 50 mls/hr UNSCH PRN IV For Magnesium 1.2 - 1.6 mg/dL; Start 04/27/17 at 08:45; Stop 07/12/17 at 00:31; Status DC Potassium Phosphate (K-Phos) 2,000 mg Q4H PRN PO For Phosphorus < 2.5 mg/dL Last administered on 04/28/17 15:38; Start 04/27/17 at 08:45; Stop 07/12/17 at 00:31; Status DC Sodium Phosphate 30 mmol/Sodium Chloride 250 ml @ 42 mls/hr UNSCH PRN IV For Phosphorus < 2.5 mg/dL Last administered on 04/27/17 23:59; Start 04/27/17 at 08:45; Stop 07/12/17 at 00:31; Status DC Potassium Phosphate (K-Phos) 2,000 mg UNSCH PRN PO/TUBE SEE LABEL COMMENTS Last administered on 05/08/17 06:32; Start 04/27/17 at 08:45; Stop 07/12/17 at 00:31; Status DC Potassium Phosphate 30 mmol/ Sodium Chloride 260 ml @ 42 mls/hr UNSCH PRN IV SEE LABEL COMMENTS Last administered on 05/04/17 20:54; Start 04/27/17 at 08:45 ; Stop 07/12/17 at 00:31; Status DC Insulin Detemir (Levemir Inj) 10 units BID SQ Last administered on 04/30/17 21 :00; Start 04/28/17 at 21:00; Stop 05/01/17 at 07:49; Status DC Pantoprazole Sodium (Protonix Inj) 40 mg Q24H IV PUSH Last administered on 17:00; Start 04/28/17 at 17:00; Stop 05/07/17 at 12:52; Status DC Insulin Aspart (NovoLOG SUPPLEMENTAL SCALE) 1 ACHS SLIDING SCALE SQ Last administered on 05/18/17 21:00; Start 04/28/17 at 16:00; Stop 05/19/17 at 07:55 ; Status DC Sodium Chloride 250 ml @ 15 mls/hr ONCE ONCE IV ; Start 04/28/17 at 18:00; Stop 04/28/17 at 18:33; Status DC Acetaminophen (Ofirmev 1000 Mg/ 100 ml Inj) 1,000 mg NOW ONCE IV Last administered on 04/29/17 01:00; Start 04/29/17 at 01:00; Stop 04/29/17 at 01:01 ; Status DC Iohexol (Omnipaque 350 Inj) 75 ml STK-MED ONCE IVCONTRAST Last administered on 04/26/17 04:26; Start 04/26/17 at 04:26; Stop 04/29/17 at 10:24; Status DC Fluconazole/ Sodium Chloride 100 ml @ 100 mls/hr Q24H IV Last administered on 04/30/17 14:59; Start 04/29/17 at 14:00; Stop 04/30/17 at 15:40; Status DC Metronidazole (Flagyl) 500 mg Q8HR DOBHOFF Last administered on 05/13/17 13:37 ; Start 04/29/17 at 14:00; Stop 05/13/17 at 16:14; Status DC Albuterol/ Ipratropium (Duoneb Neb) 1 ampule Q4HR NEB PRN NEB CONGESTION Last administered on 05/04/17 20:38; Start 04/30/17 at 04:45; Stop 05/07/17 at 12:46; Status DC Bumetanide (Bumex Inj) 1 mg ONCE ONCE IV PUSH Last administered on 04/30/17 10:14; Start 04/30/17 at 08:00; Stop 04/30/17 at 08:01; Status DC Potassium Chloride/Sodium Chloride 1,000 ml @ 84 mls/hr [id number] IV Last administered on 05/01/17 07:00; Start 04/30/17 at 08:00; Stop 05/01/17 at 07:32 ; Status DC Albuterol/ Ipratropium (Duoneb Neb) 1 ampule Q6HR NEB NEB Last administered on 05/04/17 07:52; Start 04/30/17 at 10:00; Stop 05/04/17 at 09:59; Status DC Cefepime HCl 2000 mg/Sodium Chloride 100 ml @ 200 mls/hr Q8H IV Last administered on 05/04/17 07:53; Start 04/30/17 at 09:00; Stop 05/04/17 at 08:22; Status DC Micafungin Sodium 100 mg/Sodium Chloride 100 ml @ 100 mls/hr Q24H IV Last administered on 05/07/17 10:29; Start 04/30/17 at 09:00; Stop 05/07/17 at 13:49; Status DC Etomidate (Amidate Inj) 20 mg STK-MED ONCE .ROUTE Last administered on 15:07; Start 04/30/17 at 14:56; Stop 04/30/17 at 14:57; Status DC Midazolam HCl (Versed Inj) 5 mg STK-MED ONCE .ROUTE Last administered on 15:06; Start 04/30/17 at 14:57; Stop 04/30/17 at 14:58; Status DC Rocuronium [place] (Zemuron Inj) 50 mg STK-MED ONCE .ROUTE Last administered on 04/30/17 15:07; Start 04/30/17 at 14:58; Stop 04/30/17 at 14:59; Status DC Etomidate (Amidate Inj) 20 mg NOW ONCE IV PUSH ; Start 04/30/17 at 15:30; Stop 04/30/17 at 15:31; Status DC Midazolam HCl (Versed Inj) 5 mg NOW ONCE IV PUSH ; Start 04/30/17 at 15:30; Stop 04/30/17 at 15:32; Status DC Rocuronium [place] (Zemuron Inj) 50 mg NOW ONCE IV PUSH ; Start 04/30/17 at 15: 45; Stop 04/30/17 at 15:46; Status DC Vancomycin HCl 1000 mg/Sodium Chloride 250 ml @ 250 mls/hr Q12H IV ; Start at 15:45; Status Cancel Pharmacy Profile Note 1,000 ml @ 30 mls/hr UNSCH OTHER ; Start 04/30/17 at 15: 45; Stop 05/04/17 at 08:22; Status DC Vancomycin HCl 1250 mg/Sodium Chloride 262.5 ml @ 250 mls/hr Q12H IV Last administered on 05/03/17 07:24; Start 04/30/17 at 18:00; Stop 05/03/17 at 15:39; Status DC Miscellaneous Information SPECIFIC LAB TO BE DRAWN:VANCOMYCIN TROUGH DATE TO... ONCE ONCE .XX ; Start 05/02/17 at 05:45; Stop 05/02/17 at 05:46; Status DC Sodium Chloride 1,000 ml @ 84 mls/hr [id number] IV Last administered on 05/02/17 09:24; Start 05/01/17 at 07:30; Stop 05/02/17 at 11:49; Status DC Insulin Detemir (Levemir Inj) 20 units Q12H SQ Last administered on 05/02/17 09 :23; Start 05/01/17 at 09:00; Stop 05/02/17 at 12:07; Status DC Enoxaparin Sodium (Lovenox Inj) 40 mg Q24H SQ Last administered on 07/14/17 07:47; Start 05/01/17 at 08:00; Stop 07/14/17 at 12:05; Status DC Lactated Ringer's 1,000 ml @ 75 mls/hr [id number] IV Last administered on 05:57; Start 05/02/17 at 13:00; Stop 05/07/17 at 16:50; Status DC Insulin Detemir (Levemir Inj) 25 units Q12H SQ Last administered on 05/04/17 07 :50; Start 05/02/17 at 21:00; Stop 05/05/17 at 09:20; Status DC Vancomycin HCl 1250 mg/Sodium Chloride 262.5 ml @ 262.5 mls/ hr Q24H IV Last administered on 05/04/17 05:21; Start 05/04/17 at 06:00; Stop 05/04/17 at 08:22; Status DC Miscellaneous Information SPECIFIC LAB TO BE ... ONCE ONCE .XX ; Start at 05:45; Stop 05/06/17 at 05:45; Status DC Levofloxacin/ Dextrose 150 ml @ 100 mls/hr Q24H IV Last administered on 10:00; Start 05/04/17 at 09:00; Stop 05/13/17 at 16:14; Status DC Furosemide (Lasix Inj) 10 mg BID@09,18 IV PUSH Last administered on 05/05/17 09 :05; Start 05/04/17 at 18:00; Stop 05/05/17 at 09:01; Status DC Albuterol/ Ipratropium (Duoneb Neb) 1 ampule Q6HR ALT NEB NEB Last administered on 05/05/17 04:30; Start 05/05/17 at 01:00; Stop 05/05/17 at 04:38; Status DC Albuterol/ Ipratropium (Duoneb Neb) 1 ampule Q6HR NEB NEB Last administered on 05/08/17 09:56; Start 05/05/17 at 10:00; Stop 05/08/17 at 10:15; Status DC Insulin Detemir (Levemir Inj) 10 units Q12H SQ Last administered on 05/07/17 10 :43; Start 05/05/17 at 21:00; Stop 05/07/17 at 13:54; Status DC Lactulose (Lactulose Liq) 30 ml DAILY PO Last administered on 05/07/17 10:29; Start 05/05/17 at 09:30; Stop 05/07/17 at 12:50; Status DC Sodium Chloride 1,000 ml @ 999 mls/hr BOLUS ONCE IV Last administered on 09:08; Start 05/06/17 at 07:45; Stop 05/06/17 at 08:45; Status DC Propofol (Diprivan 200 Mg/20 ml Inj) 200 mg STK-MED ONCE IV ; Start 04/21/17 at 12:12; Stop 05/06/17 at 12:13; Status DC Ephedrine Sulfate (ePHEDrine/NS 25 MG/5 ML SYR) 25 mg STK-MED ONCE IV ; Start at 12:12; Stop 05/06/17 at 12:13; Status DC Neostigmine Methylsulfate (Prostigmin Inj) 3 mg STK-MED ONCE IV ; Start at 12:12; Stop 05/06/17 at 12:13; Status DC Phenylephrine HCl (Neosynephrine/ NS 1000 Mcg/10ml Syr) 1,000 mcg STK-MED ONCE IV ; Start 04/21/17 at 12:12; Stop 05/06/17 at 12:13; Status DC Ondansetron HCl (Zofran Inj) 4 mg STK-MED ONCE IV PUSH ; Start 04/21/17 at 12:12 ; Stop 05/06/17 at 12:13; Status DC Albumin Human (Albumin 5% Inj) 25 gm NOW ONCE IV Last administered on 21:11; Start 05/06/17 at 20:45; Stop 05/06/17 at 20:46; Status DC Albuterol Sulfate (Albuterol Neb) 2.5 mg Q2HR NEB PRN NEB DYSPNEA; Start at 12:30; Stop 05/07/17 at 14:30; Status DC Bumetanide (Bumex Inj) 1 mg ONCE ONCE IV PUSH Last administered on 05/07/17 15 :07; Start 05/07/17 at 15:00; Stop 05/07/17 at 15:01; Status DC Metolazone (Zaroxolyn) 2.5 mg ONCE ONCE PO Last administered on 05/07/17 16:36 ; Start 05/07/17 at 15:30; Stop 05/07/17 at 15:31; Status DC Potassium Chloride (KCl Powder) 20 meq ONCE ONCE PO Last administered on 15:00; Start 05/07/17 at 15:00; Stop 05/07/17 at 15:01; Status DC Docusate Sodium (Colace Liq) 100 mg Q12HR PO Last administered on 07/22/17 21 :52; Start 05/07/17 at 21:00; Stop 07/26/17 at 16:13; Status DC Sennosides (Senna Liq) 8.8 mg BID OG-TUBE Last administered on 05/17/17 09:11 ; Start 05/07/17 at 21:00; Stop 05/19/17 at 08:05; Status DC Lactulose (Lactulose Liq) 30 ml QID PO Last administered on 05/16/17 20:56; Start 05/07/17 at 18:00; Stop 05/19/17 at 08:05; Status DC Polyethylene Glycol (Miralax) 17 gm BID OG-TUBE Last administered on 05/16/17 20:56; Start 05/07/17 at 21:00; Stop 05/19/17 at 08:05; Status DC Mineral Oil (Fleet Mineral Oil Enema) 118 ml ONCE ONCE RECTAL ; Start 05/07/17 at 13:00; Stop 05/07/17 at 14:37; Status DC Mineral Oil (Mineral Oil Liq) 30 ml ONCE ONCE PO Last administered on 16:36; Start 05/07/17 at 16:00; Stop 05/07/17 at 16:02; Status DC Methylnaltrexone [place] (Relistor Inj) 12 mg ONCE ONCE SQ Last administered on 05/07/17 16:37; Start 05/07/17 at 15:00; Stop 05/07/17 at 15:01; Status DC Albuterol Sulfate (Albuterol Neb) 2.5 mg Q2HR NEB PRN NEB DYSPNEA Last administered on 07/06/17 23:51; Start 05/07/17 at 13:00; Stop 07/16/17 at 16:36 ; Status DC Lansoprazole (Prevacid Odt) 30 mg DAILY NG Last administered on 11/16/17at 09:35 ; Start 05/08/17 at 09:00 Iohexol (Omnipaque 350 Inj) 60 ml STK-MED ONCE IVCONTRAST Last administered on 05/07/17 13:35; Start 05/07/17 at 13:35; Stop 05/07/17 at 13:36; Status DC Insulin Detemir (Levemir Inj) 15 units Q12H SQ Last administered on 05/10/17 20 :49; Start 05/07/17 at 21:00; Stop 05/11/17 at 09:21; Status DC Fentanyl Citrate (fentaNYL INJ) 100 mcg STK-MED ONCE .ROUTE ; Start 05/07/17 at 14:17; Stop 05/07/17 at 14:18; Status DC Midazolam HCl (Versed Inj) 5 mg STK-MED ONCE .ROUTE ; Start 05/07/17 at 14:18; Stop 05/07/17 at 14:19; Status DC Mineral Oil (Fleet Mineral Oil Enema) 118 ml ONCE ONCE RECTAL Last administered on 05/07/17 16:35; Start 05/07/17 at 16:00; Stop 05/07/17 at 16:02; Status DC Fentanyl Citrate (fentaNYL INJ) 50 mcg NOW ONCE IV Last administered on 17:21; Start 05/07/17 at 17:15; Stop 05/07/17 at 17:20; Status DC Midazolam HCl (Versed Inj) 1 mg NOW ONCE IV Last administered on 05/07/17 17: 15; Start 05/07/17 at 17:15; Stop 05/07/17 at 17:20; Status DC Potassium Chloride (KCl Powder) 80 meq ONCE ONCE PO Last administered on 10:29; Start 05/08/17 at 10:00; Stop 05/08/17 at 10:01; Status DC Potassium Chloride 100 ml @ 100 mls/hr Q1H IV Last administered on 05/08/17 15 :24; Start 05/08/17 at 10:00; Stop 05/08/17 at 12:59; Status DC Potassium Phos/ Sodium Phos (K-Phos Neutral) 1,000 mg ONCE ONCE PO Last administered on 05/08/17 10:46; Start 05/08/17 at 10:00; Stop 05/08/17 at 10:01; Status DC Bumetanide (Bumex Inj) 1 mg ONCE ONCE IV PUSH Last administered on 05/08/17 10 :28; Start 05/08/17 at 10:00; Stop 05/08/17 at 10:01; Status DC Albuterol/ Ipratropium (Duoneb Neb) 1 ampule Q6HR NEB NEB Last administered on 05/12/17 15:53; Start 05/08/17 at 16:00; Stop 05/12/17 at 15:59; Status DC Furosemide (Lasix Inj) 20 mg BID@09,18 IV PUSH Last administered on 05/10/17 18 :00; Start 05/10/17 at 10:00; Stop 05/11/17 at 06:15; Status DC Furosemide (Lasix Inj) 40 mg BID@0900,1800 IV PUSH Last administered on 17:53; Start 05/11/17 at 09:00; Stop 05/18/17 at 08:06; Status DC Acetazolamide Sodium (Diamox Inj) 500 mg DAILY IV PUSH Last administered on 08:54; Start 05/11/17 at 09:30; Stop 05/12/17 at 23:00; Status DC Insulin Detemir (Levemir Inj) 5 units Q12H SQ Last administered on 05/17/17 09 :12; Start 05/11/17 at 21:00; Stop 05/18/17 at 08:06; Status DC Protein (Beneprotein Powder) 1 pack TID G-TUBE Last administered on 10/03/17at 09 :00; Start 05/12/17 at 13:00; Stop 10/03/17 at 11:56; Status DC Acetazolamide Sodium (Diamox Inj) 500 mg ONCE ONCE IV PUSH Last administered on 05/13/17 22:40; Start 05/13/17 at 22:00; Stop 05/13/17 at 22:01; Status DC Cisatracurium Besylate (Nimbex Inj) 12 mg ONCE ONCE IV PUSH Last administered on 05/15/17 15:15; Start 05/14/17 at 17:45; Stop 05/14/17 at 17:49; Status DC Fentanyl Citrate (fentaNYL INJ) 100 mcg [employer]IONAL EDUCATION COORDINATOR IV PUSH Last administered on 15:15; Start 05/14/17 at 17:45; Stop 05/15/17 at 17:44; Status DC Midazolam HCl (Versed Inj) 2 mg REGIONAL EDUCATION COORDINATOR IV PUSH Last administered on 15:15; Start 05/14/17 at 17:45; Stop 05/15/17 at 17:44; Status DC Cisatracurium Besylate (Nimbex Inj) 12 mg REGIONAL EDUCATION COORDINATOR IV PUSH ; Start 05/14/17 at 18:00; Stop 05/15/17 at 17:59; Status DC Cefazolin Sodium 1000 mg/Sodium Chloride 100 ml @ 200 mls/hr REGIONAL EDUCATION COORDINATOR IV Last administered on 05/16/17 12:35; Start 05/15/17 at 17:15; Stop 05/18/17 at 17:14 ; Status DC Propofol (Diprivan 200 Mg/20 ml Inj) 210 mg STK-MED ONCE IV ; Start 05/16/17 at 13:30; Stop 05/16/17 at 18:25; Status DC Sodium Chloride 1,000 ml @ 75 mls/hr [id number] IV Last administered on 12:42; Start 05/17/17 at 11:45; Stop 05/19/17 at 07:55; Status DC Furosemide (Lasix Inj) 40 mg DAILY IV PUSH Last administered on 05/18/17 08:29 ; Start 05/18/17 at 09:00; Stop 05/19/17 at 07:55; Status DC Furosemide (Lasix Liq) 40 mg DAILY NG Last administered on 06/18/17 11:02; Start 05/19/17 at 09:00; Stop 06/19/17 at 06:54; Status DC Dextrose (D50w (Vial) Inj) 25 ml UNSCH PRN IV PUSH HYPOGLYCEMIA-SEE COMMENTS; Start 05/19/17 at 08:00; Stop 05/20/17 at 20:59; Status DC Insulin Human Regular (NovoLIN R SUPPLEMENTAL SCALE) 1 Q4HR SQ Last administered on 05/21/17 12:00; Start 05/19/17 at 08:00; Stop 05/21/17 at 13:15 ; Status DC Insulin Detemir (Levemir Inj) 8 units DAILY SQ Last administered on 05/20/17 09:00; Start 05/19/17 at 09:00; Stop 05/21/17 at 13:15; Status DC Dextrose (D50w (Syr) Inj) 25 ml UNSCH PRN IV PUSH HYPOGLYCEMIA-SEE COMMENTS Last administered on 05/20/17 21:14; Start 05/20/17 at 21:00; Stop 05/21/17 at 13:34; Status DC Insulin Detemir (Levemir Inj) 7 units Q12H SQ Last administered on 05/22/17 09 :00; Start 05/21/17 at 21:00; Stop 05/22/17 at 17:19; Status DC Dextrose (D50w (Vial) Inj) 50 ml UNSCH PRN IV PUSH HYPOGLYCEMIA-SEE COMMENTS; Start 05/21/17 at 13:15; Stop 05/22/17 at 17:06; Status DC Glucagon (Glucagon Inj) 1 mg UNSCH PRN OTHER HYPOGLYCEMIA-SEE COMMENTS; Start 05/21/17 at 13:15; Stop 10/08/17 at 11:08; Status DC Insulin Aspart (NovoLOG SUPPLEMENTAL SCALE) 1 ACHS SLIDING SCALE SQ Last administered on 06/11/17 11:56; Start 05/21/17 at 17:00; Stop 06/12/17 at 07: 10; Status DC Dextrose (D50w (Syr) Inj) 50 ml UNSCH PRN IV PUSH HYPOGLYCEMIA-SEE COMMENTS Last administered on 10/04/17at 01:57; Start 05/22/17 at 17:15; Stop 10/08/17 at 11 :08; Status DC Insulin Detemir (Levemir Inj) 5 units Q12H SQ Last administered on 05/27/17 21 :22; Start 05/22/17 at 21:00; Stop 05/28/17 at 09:50; Status DC Enalaprilat (Vasotec Inj) 1.25 mg Q6H PRN IV PUSH SBP> OR = 180, DBP> OR = 100 Last administered on 05/31/17 05:28; Start 05/24/17 at 22:45; Stop 05/31/17 at 07:41; Status DC Water (Free Water) VOLUME: 300 ML Q6HR G-TUBE Last administered on 06/10/17 06:00; Start 05/25/17 at 14:15; Stop 06/10/17 at 11:23; Status DC Acetazolamide Sodium (Diamox Inj) 500 mg ONCE ONCE IV PUSH Last administered on 05/26/17 08:54; Start 05/26/17 at 09:00; Stop 05/26/17 at 09:01; Status DC Ceftriaxone Sodium 1000 mg/ Sodium Chloride 100 ml @ 200 mls/hr Q24H IV Last administered on 05/27/17 08:32; Start 05/26/17 at 09:00; Stop 05/27/17 at 15:41 ; Status DC Cefepime HCl 1000 mg/Sodium Chloride 100 ml @ 200 mls/hr Q12H IV Last administered on 06/03/17 05:32; Start 05/27/17 at 16:00; Stop 06/03/17 at 09:12 ; Status DC Sodium Chloride 250 ml @ 15 mls/hr ONCE ONCE IV Last administered on 09:45; Start 05/28/17 at 09:45; Stop 05/29/17 at 02:24; Status DC Acetaminophen (Tylenol) 650 mg Q4H PRN PO SEE LABEL COMMENTS; Start 05/28/17 at 10:00; Stop 06/10/17 at 11:23; Status DC Diphenhydramine HCl (Benadryl) 25 mg Q4H PRN PO SEE LABEL COMMENTS; Start 05/28 at 10:00; Stop 06/02/17 at 07:40; Status DC Furosemide (Lasix Inj) 20 mg ONCE ONCE IV PUSH ; Start 05/28/17 at 10:00; Stop 05/28/17 at 10:01; Status DC Insulin Detemir (Levemir Inj) 7 units Q12H SQ Last administered on 06/20/17 21:12; Start 05/28/17 at 21:00; Stop 06/21/17 at 07:27; Status DC Artificial Tears (Tears Naturale Opth Soln) 1 drop Q4H PRN EACH EYE DRY EYE; Start 05/29/17 at 21:15; Stop 06/12/17 at 07:10; Status DC Hydralazine HCl (Apresoline Inj) 20 mg Q4H PRN IV PUSH SBP >160 Last administered on 06/21/17 04:06; Start 05/31/17 at 07:45; Stop 06/21/17 at 07: 23; Status DC Lisinopril (Prinivil) 10 mg Q12HR PO Last administered on 06/20/17 21:12; Start 05/31/17 at 09:00; Stop 06/21/17 at 07:23; Status DC Artificial Tears (Tears Naturale Opth Soln) 1 drop Q8HR EACH EYE Last administered on 11/16/17at 14:03; Start 06/12/17 at 07:15 Insulin Aspart (NovoLOG SUPPLEMENTAL SCALE) 1 Q6HR SQ Last administered on 18:00; Start 06/12/17 at 12:00; Stop 07/16/17 at 16:36; Status DC Sodium Chloride (Sodium Chloride) 2 gm ONCE ONCE PEG Last administered on 09:41; Start 06/12/17 at 07:00; Stop 06/12/17 at 07:12; Status DC Albuterol/ Ipratropium (Duoneb Neb) 1 ampule Q6HR NEB NEB Last administered on 06/16/17 03:46; Start 06/12/17 at 10:00; Stop 06/16/17 at 07:10; Status DC Insulin Aspart (NovoLOG INJ) 10 units ONCE ONCE SQ Last administered on 10:00; Start 06/12/17 at 10:00; Stop 06/12/17 at 10:32; Status DC Erythromycin Ethylsuccinate (Ees) 250 mg Q8HR PO ; Start 06/16/17 at 02:00; Stop 06/16/17 at 02:00; Status DC Methylnaltrexone [place] (Relistor Inj) 12 mg ONCE ONCE SQ Last administered on 06/16/17 01:40; Start 06/16/17 at 02:00; Stop 06/16/17 at 02:01; Status DC Erythromycin (Erythromycin Ec) 250 mg Q8HR PO Last administered on 06/18/17 12:27; Start 06/16/17 at 02:00; Stop 06/18/17 at 22:53; Status DC Albuterol/ Ipratropium (Duoneb Neb) 1 ampule Q6HR NEB NEB Last administered on 06/20/17 08:04; Start 06/16/17 at 10:00; Stop 06/20/17 at 09:24; Status DC Erythromycin Ethylsuccinate (Ees 400 Mg/5 ml Liq) 250 mg Q8H PO Last administered on 06/19/17 01:19; Start 06/19/17 at 00:00; Stop 06/19/17 at 06 :54; Status DC Polyethylene Glycol (Miralax) 17 gm DAILY PO ; Start 06/19/17 at 09:00; Stop 06/23/17 at 06:47; Status DC Albuterol/ Ipratropium (Duoneb Neb) 1 ampule Q6HR NEB NEB Last administered on 06/24/17 08:30; Start 06/20/17 at 10:00; Stop 06/24/17 at 09:59; Status DC Hydralazine HCl (Apresoline Inj) 10 mg Q1H PRN IV PUSH SBP >160 Last administered on 07/10/17 13:51; Start 06/21/17 at 07:30; Stop 07/12/17 at 00: 26; Status DC Lisinopril (Prinivil) 20 mg Q12HR PO Last administered on 08/22/17 21:16; Start 06/21/17 at 09:00; Stop 08/23/17 at 07:26; Status DC Labetalol HCl (Trandate Inj) 10 mg Q1H PRN IV PUSH SBP>160, DBP>90, HR>65 Last administered on 07/08/17 05:02; Start 06/21/17 at 07:30; Stop 07/12/17 at 00: 26; Status DC Nitroglycerin (Nitroglycerin 2% Oint) 2 inch Q6H PRN TOPICAL SBP>160, DBP>90 Last administered on 06/30/17 14:37; Start 06/21/17 at 08:00 Piperacillin Sod/ Tazobactam Sod 100 ml @ 200 mls/hr Q6H IV Last administered on 06/29/17 02:07; Start 06/21/17 at 09:00; Stop 06/29/17 at 08:59; Status DC Pharmacy Profile Note 0 ml @ 0 mls/hr UNSCH OTHER ; Start 06/21/17 at 07:30; Stop 06/23/17 at 06:46; Status DC Guaifenesin (Robitussin Liq) 400 mg Q8HR PEG Last administered on 06/29/17 06 :02; Start 06/21/17 at 14:00; Stop 06/29/17 at 13:59; Status DC Sodium Chloride (Sodium Chloride 3% Neb) 2 ml Q6HR NEB NEB Last administered on 06/29/17 08:21; Start 06/21/17 at 10:00; Stop 06/29/17 at 09:59; Status DC Insulin Detemir (Levemir Inj) 10 units Q12H SQ Last administered on 07/19/17 08:39; Start 06/21/17 at 09:00; Stop 07/19/17 at 09:26; Status DC Vancomycin HCl 1000 mg/Sodium Chloride 250 ml @ 250 mls/hr ONCE ONCE IV Last administered on 06/21/17 11:50; Start 06/21/17 at 12:00; Stop 06/21/17 at 12 :59; Status DC Vancomycin HCl 750 mg/Sodium Chloride 257.5 ml @ 250 mls/hr Q12H IV Last administered on 06/23/17 00:02; Start 06/22/17 at 00:00; Stop 06/23/17 at 06 :46; Status DC Miscellaneous Information SPECIFIC LAB TO BE ROLF... ONCE ONCE .XX ; Start at 23:45; Stop 06/22/17 at 23:46; Status DC Miscellaneous Information SPECIFIC LAB TO BE ROLF... ONCE ONCE .XX ; Start at 11:45; Stop 06/23/17 at 11:46; Status DC Polyethylene Glycol (Miralax) 17 gm BID PEG Last administered on 07/02/17 08: 35; Start 06/23/17 at 09:00; Stop 07/09/17 at 08:04; Status DC Albuterol/ Ipratropium (Duoneb Neb) 1 ampule Q6HR NEB NEB Last administered on 07/08/17 10:22; Start 07/04/17 at 10:00; Stop 07/08/17 at 09:59; Status DC Polyethylene Glycol (Miralax) 17 gm DAILY PEG Last administered on 10/02/17at 07: 59; Start 07/09/17 at 09:00; Stop 10/03/17 at 11:56; Status DC Clonidine (Catapres) 0.1 mg Q6H PRN PO SBP >160 Last administered on 16:22; Start 07/12/17 at 00:30; Stop 10/03/17 at 11:55; Status DC Heparin Sodium (Porcine) (Heparin Inj) 5,000 units Q8HR SQ Last administered on 11/16/17at 14:04; Start 07/15/17 at 08:00 Sodium Chloride 1,000 ml @ 42 mls/hr [id number] IV Last administered on 15:15; Start 07/14/17 at 14:45; Stop 07/15/17 at 08:00; Status DC Albuterol/ Ipratropium (Duoneb Neb) 2.5 ampule Q6HR NEB NEB ; Start 07/16/17 at 16:45; Stop 07/16/17 at 19:01; Status DC Hyoscyamine Sulfate (Levsin Liq) 0.125 mg BID PEG ; Start 07/16/17 at 21:00; Stop 07/16/17 at 21:00; Status DC Albuterol Sulfate (Albuterol Neb) 2.5 mg Q6HR NEB INH Last administered on 19:49; Start 07/16/17 at 22:00; Stop 07/20/17 at 21:59; Status DC Acetylcysteine (Mucomyst 20% Neb) 2 ml Q8HR NEB PRN NEB SECRETIONS; Start at 08:00; Stop 07/17/17 at 08:00; Status DC Acetylcysteine (Mucomyst 20% Neb) 2 ml Q8HR NEB PRN NEB SECRETIONS Last administered on 07/21/17 03:31; Start 07/17/17 at 08:00; Stop 07/21/17 at 07 :59; Status DC Trimethoprim/ Sulfamethoxazole (Bactrim 800-160 Mg/20 ml Liq) 20 ml Q12H PO ; Start 07/17/17 at 09:45; Stop 07/17/17 at 09:50; Status DC Trimethoprim/ Sulfamethoxazole (Bactrim 800-160 Mg/20 ml Liq) 20 ml Q12HR PEG Last administered on 07/19/17 21:27; Start 07/17/17 at 11:00; Stop 07/19/17 at 21:01; Status DC Insulin Detemir (Levemir Inj) 15 units Q12H SQ Last administered on 07/20/17 08:00; Start 07/19/17 at 21:00; Stop 07/20/17 at 08:26; Status DC Insulin Detemir (Levemir Inj) 18 units Q12H SQ Last administered on 07/22/17 13:46; Start 07/20/17 at 21:00; Stop 07/22/17 at 14:39; Status DC Trimethoprim/ Sulfamethoxazole (Bactrim 800-160 Mg/20 ml Liq) 20 ml Q12HR PEG Last administered on 07/21/17 08:12; Start 07/20/17 at 15:00; Stop 07/21/17 at 13:16; Status DC Albuterol/ Ipratropium (Duoneb Neb) 1 ampule ONCE ONCE NEB Last administered on 07/21/17 03:30; Start 07/21/17 at 03:30; Stop 07/21/17 at 03:31; Status DC Albuterol/ Ipratropium (Duoneb Neb) 1 ampule ONCE PRN NEB SHORTNESS OF BREATH; Start 07/21/17 at 04:15; Stop 07/21/17 at 07:30; Status DC Albuterol/ Ipratropium (Duoneb Neb) 1 ampule Q6HR NEB NEB Last administered on 07/25/17 09:05; Start 07/21/17 at 10:00; Stop 07/25/17 at 09:59; Status DC Acetylcysteine (Mucomyst 20% Neb) 2 ml Q8HR NEB PRN NEB SECRETIONS; Start at 07:00; Stop 07/21/17 at 07:24; Status DC Piperacillin Sod/ Tazobactam Sod 100 ml @ 200 mls/hr Q6H IV Last administered on 07/25/17 04:56; Start 07/21/17 at 10:00; Stop 07/25/17 at 07:50; Status DC Azithromycin 500 mg/Sodium Chloride 250 ml @ 250 mls/hr Q24H IV Last administered on 07/25/17 10:58; Start 07/21/17 at 11:00; Stop 07/25/17 at 13 :36; Status DC Insulin Aspart (NovoLOG SUPPLEMENTAL SCALE) 1 Q6HR SQ Last administered on at 06:47; Start 07/21/17 at 18:00; Stop 10/08/17 at 09:45; Status DC Insulin Detemir (Levemir Inj) 15 units Q12H SQ Last administered on 07/26/17 23:10; Start 07/22/17 at 21:00; Stop 07/27/17 at 09:00; Status DC Ceftolozane/ Tazobactam 1500 mg/Sodium Chloride 100 ml @ 100 mls/hr Q8H IV Last administered on 08/06/17 08:25; Start 07/25/17 at 09:00; Stop 08/06/17 at 12:58; Status DC Fluconazole/ Sodium Chloride 100 ml @ 100 mls/hr ONCE ONCE IV Last administered on 07/26/17 17:00; Start 07/26/17 at 17:00; Stop 07/26/17 at 17 :59; Status DC Insulin Detemir (Levemir Inj) 7 units Q12HR SQ Last administered on 09/14/17at 07:32; Start 07/27/17 at 09:00; Stop 09/14/17 at 15:42; Status DC Furosemide (Lasix Liq) 40 mg ONCE ONCE NG Last administered on 07/29/17 17: 29; Start 07/29/17 at 16:00; Stop 07/29/17 at 16:02; Status DC Lactated Ringer's 1,000 ml @ 30 mls/hr Q24H PRN IV SEE LABEL COMMENTS; Start 08/03/17 at 06:30; Stop 08/06/17 at 06:29; Status DC Lidocaine/ Epinephrine (Xylocaine-Epi 1%-1:100,000 Inj) 20 ml STK-MED ONCE .ROUTE Last administered on 08/05/17 17:58; Start 08/05/17 at 17:58; Stop 08/05/17 at 17:59; Status DC Colistin Sulfate (Coly-Mycin M Neb) 75 mg Q8HR NEB NEB Last administered on 08:25; Start 08/06/17 at 16:00; Stop 08/12/17 at 15:59; Status DC Furosemide (Lasix Liq) 40 mg ONCE ONCE NG Last administered on 08/08/17 12: 54; Start 08/08/17 at 12:15; Stop 08/08/17 at 12:16; Status DC Albuterol/ Ipratropium (Duoneb Neb) 1 ampule Q6HR NEB PRN NEB WHEEZING Last administered on 10/16/17 07:17; Start 08/10/17 at 14:00; Stop 10/25/17 at 08: 28; Status DC Lisinopril (Prinivil) 30 mg Q12HR PO Last administered on 08/24/17 21:00; Start 08/23/17 at 09:00; Stop 08/25/17 at 07:46; Status DC Lisinopril (Prinivil) 40 mg Q12HR PO Last administered on 09/15/17at 20:54; Start 08/25/17 at 09:00; Stop 09/15/17 at 22:16; Status DC Amlodipine Besylate (Norvasc) 5 mg DAILY PO Last administered on 09/01/17at 09:24 ; Start 08/31/17 at 09:00; Stop 09/02/17 at 06:48; Status DC Amlodipine Besylate (Norvasc) 10 mg DAILY PO Last administered on 10/02/17 08: 00; Start 09/02/17 at 09:00; Stop 10/03/17 at 11:55; Status DC Metoprolol Tartrate (Lopressor) 12.5 mg Q12HR PO Last administered on 09/06/17at 08:46; Start 09/05/17 at 21:00; Stop 10/03/17 at 11:55; Status DC Miscellaneous (Pill Splitter) 1 ea UNSCH PRN OTHER SEE LABEL COMMENTS; Start at 11:00 Trimethoprim/ Sulfamethoxazole (Bactrim 800-160 Mg/20 ml Liq) 20 ml Q12H PEG ; Start 09/09/17 at 20:00; Stop 09/09/17 at 20:00; Status DC Trimethoprim/ Sulfamethoxazole (Bactrim Ds 800-160 Mg) 1 tab Q12HR PEG Last administered on 09/29/17at 09:36; Start 09/09/17 at 21:00; Stop 09/29/17 at 22:01 ; Status DC Insulin Detemir (Levemir Inj) 12 units Q12HR SQ Last administered on 09/20/17at 20:49; Start 09/14/17 at 21:00; Stop 09/21/17 at 08:28; Status DC Lisinopril (Prinivil) 40 mg DAILY PO Last administered on 09/19/17at 09:39; Start 09/16/17 at 09:00; Stop 09/20/17 at 17:11; Status DC Sodium Polystyrene Sulfonate (Kayexalate Liq) 15 gm ONCE ONCE PO Last administered on 09/16/17at 11:01; Start 09/16/17 at 10:45; Stop 09/16/17 at 10:46 ; Status DC Acetaminophen (Tylenol) 500 mg Q6H PRN PEG Fever > 100.0F Last administered on 09/16/17at 16:36; Start 09/16/17 at 16:15; Stop 10/26/17 at 06:36; Status DC Dextrose 1,000 ml @ 75 mls/hr [id number] IV Last administered on 09/20/17at 11:09 ; Start 09/18/17 at 15:30; Stop 09/20/17 at 17:11; Status DC Lisinopril (Prinivil) 20 mg DAILY PO ; Start 09/21/17 at 09:00; Stop 09/21/17 at 23:55; Status DC Metoclopramide HCl (Reglan Inj) 10 mg ONCE ONCE IV PUSH Last administered on at 03:37; Start 09/21/17 at 03:15; Stop 09/21/17 at 03:16; Status DC Insulin Detemir (Levemir Inj) 12 units HS SQ Last administered on 09/26/17at 21: 00; Start 09/21/17 at 21:00; Stop 09/27/17 at 17:31; Status DC Calcium Gluconate 1 gm/Dextrose 110 ml @ 110 mls/hr ONCE ONCE IV Last administered on 09/21/17at 11:43; Start 09/21/17 at 11:15; Stop 09/21/17 at 12:14 ; Status DC Sodium Polystyrene Sulfonate (Kayexalate Liq) 15 gm QID PEG Last administered on 09/22/17at 09:30; Start 09/21/17 at 13:00; Stop 09/22/17 at 09:02; Status DC Insulin Human Regular (NovoLIN R INJ) 10 units ONCE ONCE IV PUSH Last administered on 09/21/17at 11:42; Start 09/21/17 at 11:30; Stop 09/21/17 at 11:31 ; Status DC Dextrose (D50w (Vial) Inj) 50 ml ONCE ONCE IV PUSH Last administered on at 11:42; Start 09/21/17 at 11:30; Stop 09/21/17 at 11:31; Status DC Albuterol Sulfate (Albuterol Concentrated Neb) 10 mg ONCE ONCE INH Last administered on 09/21/17at 11:30; Start 09/21/17 at 11:30; Stop 09/21/17 at 11:31 ; Status DC Sodium Chloride 500 ml @ 100 mls/hr Q5H IV Last administered on 09/21/17at 13: 38; Start 09/21/17 at 13:00; Stop 09/21/17 at 17:59; Status DC Sodium Chloride 1,000 ml @ 42 mls/hr [id number] IV Last administered on at 08:34; Start 09/21/17 at 21:00; Stop 09/24/17 at 08:24; Status DC Hydralazine HCl (Apresoline) 10 mg Q8HR PEG Last administered on 11/16/17at 14: 04; Start 09/24/17 at 14:00 Hydralazine HCl (Apresoline) 10 mg ONCE ONCE PEG Last administered on at 11:49; Start 09/24/17 at 09:00; Stop 09/24/17 at 09:01; Status DC Cefepime HCl 2000 mg/Sodium Chloride 100 ml @ 200 mls/hr Q8H IV Last administered on 09/29/17at 05:35; Start 09/25/17 at 12:00; Stop 09/29/17 at 08:46 ; Status DC Sodium Polystyrene Sulfonate (Kayexalate Liq) 15 gm ONCE ONCE RECTAL Last administered on 09/26/17at 10:51; Start 09/26/17 at 09:15; Stop 09/26/17 at 09:16 ; Status DC Sodium Polystyrene Sulfonate (Kayexalate Liq) 15 gm ONCE ONCE PEG Last administered on 09/27/17at 18:11; Start 09/27/17 at 17:15; Stop 09/27/17 at 17:16 ; Status DC Insulin Detemir (Levemir Inj) 10 units BID SQ Last administered on 09/29/17at 09 :37; Start 09/27/17 at 21:00; Stop 09/29/17 at 15:14; Status DC Doxazosin Mesylate (Cardura) 1 mg DAILY PO Last administered on 10/02/17at 07:59 ; Start 09/28/17 at 10:00; Stop 10/03/17 at 11:55; Status DC Ceftolozane/ Tazobactam 1500 mg/Sodium Chloride 100 ml @ 100 mls/hr Q8H IV Last administered on 09/30/17at 01:51; Start 09/29/17 at 10:00; Stop 09/30/17 at 10:38; Status DC Lactobacillus Acidophilus (Lactinex) 1 tab Q12HR PO Last administered on at 09:08; Start 09/29/17 at 21:00; Stop 10/03/17 at 11:55; Status DC Insulin Human NPH (NovoLIN N INJ) 7 units TID SQ Last administered on at 18:16; Start 09/29/17 at 18:00; Stop 10/01/17 at 19:07; Status DC Acetylcysteine (Mucomyst 10% Neb) 2 ml Q6HR NEB NEB ; Start 09/29/17 at 16:00; Stop 09/29/17 at 16:21; Status DC Acetylcysteine (Mucomyst 10% Neb) 2 ml Q6HR NEB NEB Last administered on at 08:30; Start 09/29/17 at 14:30; Stop 10/03/17 at 14:29; Status DC Metoclopramide HCl (Reglan Inj) 10 mg ONCE ONCE IV PUSH Last administered on at 22:11; Start 09/29/17 at 21:30; Stop 09/29/17 at 21:31; Status DC Trimethoprim/ Sulfamethoxazole (Bactrim 800-160 Mg/20 ml Liq) 20 ml BID PEG Last administered on 10/03/17at 09:08; Start 09/29/17 at 22:02; Stop 10/03/17 at 18 :48; Status DC Colistin Sulfate (Coly-Mycin M Neb) 75 mg Q8HR NEB NEB Last administered on at 07:29; Start 09/30/17 at 16:00; Stop 10/21/17 at 15:59; Status DC Insulin Human NPH (NovoLIN N INJ) 10 units TID SQ Last administered on at 18:43; Start 10/02/17 at 09:00; Stop 10/07/17 at 12:30; Status DC Sodium Polystyrene Sulfonate (Kayexalate Liq) 15 gm BID PO Last administered on 10/03/17at 10:09; Start 10/03/17 at 09:00; Stop 10/03/17 at 11:55; Status DC Sodium Chloride 1,000 ml @ 100 mls/hr Q10H IV Last administered on 10/03/17at 20 :26; Start 10/03/17 at 08:30; Stop 10/03/17 at 22:36; Status DC Levofloxacin/ Dextrose 100 ml @ 100 mls/hr Q24H IV Last administered on at 11:46; Start 10/03/17 at 10:00; Stop 10/03/17 at 20:03; Status DC Amlodipine Besylate (Norvasc) 10 mg DAILY PEG Last administered on 11/16/17at 09 :35; Start 10/04/17 at 09:00 Calcium/Vitamin D (Oscal-D 250-125) 250 mg TID PEG Last administered on 11:33; Start 10/03/17 at 13:00 Cholecalciferol (Vitamin D3) 5,000 units DAILY PEG Last administered on 09:35; Start 10/04/17 at 09:00 Clonidine (Catapres) 0.1 mg Q6H PRN PEG SBP >160 Last administered on 10/08/17at 09:03; Start 10/03/17 at 12:30 Doxazosin Mesylate (Cardura) 1 mg DAILY PEG Last administered on 11/16/17 09: 35; Start 10/04/17 at 09:00 Lactobacillus Acidophilus (Lactinex) 1 tab Q12HR PEG Last administered on 09:35; Start 10/03/17 at 21:00 Metoprolol Tartrate (Lopressor) 12.5 mg Q12HR PEG Last administered on at 19:28; Start 10/03/17 at 21:00; Stop 10/26/17 at 08:47; Status DC Sodium Polystyrene Sulfonate (Kayexalate Liq) 15 gm BID PEG Last administered on 10/03/17at 21:00; Start 10/03/17 at 21:00; Stop 10/05/17 at 14:49; Status DC Polyethylene Glycol (Miralax) 17 gm DAILY PRN PEG Constipation; Start 10/03/17 at 12:00 Protein (Beneprotein Powder) 1 pack TID PRN G-TUBE Constipation; Start 10/03/17 at 12:00 Albuterol Sulfate (Albuterol Neb) 2.5 mg Q2HR NEB PRN NEB WHEEZING Last administered on 10/19/17at 22:09; Start 10/03/17 at 21:45 Dextrose 1,000 ml @ 30 mls/hr Q24H IV ; Start 10/03/17 at 22:45; Status Cancel Dextrose (D50w (Vial) Inj) 25 ml ONCE ONCE IV PUSH Last administered on at 22:42; Start 10/03/17 at 22:45; Stop 10/03/17 at 22:46; Status DC Furosemide (Lasix Inj) 40 mg ONCE ONCE IV PUSH Last administered on 10/03/17at 22:46; Start 10/03/17 at 22:45; Stop 10/03/17 at 22:46; Status DC Dextrose 500 ml @ 10 mls/hr Q24H IV Last administered on 10/04/17at 15:49; Start 10/03/17 at 23:00; Stop 10/05/17 at 14:49; Status DC Fentanyl Citrate (fentaNYL INJ) 100 mcg STK-MED ONCE .ROUTE ; Start 10/03/17 at 22:47; Stop 10/03/17 at 22:48; Status DC Fentanyl Citrate (fentaNYL INJ) 100 mcg NOW ONCE IV PUSH ; Start 10/03/17 at 23: 00; Stop 10/03/17 at 23:01; Status DC Fentanyl Citrate (fentaNYL INJ) 50 mcg ONCE ONCE IV PUSH Last administered on 10/03/17at 23:00; Start 10/03/17 at 23:00; Stop 10/03/17 at 23:10; Status DC Fentanyl Citrate (fentaNYL INJ) 50 mcg Q1H PRN IV PUSH SEDATION; Start 10/03/17 at 23:00; Stop 10/29/17 at 10:46; Status DC Chlorhexidine Gluconate (Peridex 0.12% Liq) 15 ml BID@08,20 MT Last administered on 10/31/17at 21:41; Start 10/04/17 at 08:00; Stop 11/01/17 at 11:43; Status DC Furosemide (Lasix Inj) 40 mg ONCE ONCE IV PUSH Last administered on 10/04/17at 05:52; Start 10/04/17 at 05:00; Stop 10/04/17 at 05:01; Status DC Furosemide (Lasix Inj) 40 mg Q6HR IV PUSH Last administered on 10/06/17at 05:28; Start 10/04/17 at 12:00; Stop 10/06/17 at 11:00; Status DC Insulin Human NPH (NovoLIN N INJ) 5 units BID@08,17 SQ Last administered on 10/10at 08:05; Start 10/07/17 at 17:00; Stop 10/10/17 at 11:33; Status DC Insulin Detemir (Levemir Inj) 7 units Q12H SQ Last administered on 10/25/17at 23 :55; Start 10/08/17 at 12:00; Stop 10/26/17 at 06:36; Status DC Dextrose (D50w (Vial) Inj) 50 ml UNSCH PRN IV PUSH HYPOGLYCEMIA-SEE COMMENTS Last administered on 10/28/17at 17:42; Start 10/08/17 at 09:45; Stop 11/04/17 at 12 :34; Status DC Glucagon (Glucagon Inj) 1 mg UNSCH PRN OTHER HYPOGLYCEMIA-SEE COMMENTS Last administered on 10/14/17at 00:45; Start 10/08/17 at 09:45; Stop 11/04/17 at 12:34; Status DC Insulin Human Regular (NovoLIN R SUPPLEMENTAL SCALE) 1 Q6HR SQ Last administered on 11/04/17at 06:00; Start 10/08/17 at 12:00; Stop 11/04/17 at 12:27; Status DC Water (Free Water) 250 ml Q8HR G-TUBE Last administered on 10/20/17at 05:20; Start 10/18/17 at 14:00; Stop 10/20/17 at 10:15; Status DC Water (Free Water) VOLUME OF WATER: ( 200 ) ML Q6HR G-TUBE Last administered on 10/27/17at 05:49; Start 10/20/17 at 12:00; Stop 10/27/17 at 10:02; Status DC Albuterol/ Ipratropium (Duoneb Neb) 1 ampule Q6HR NEB NEB Last administered on 10/29/17at 08:34; Start 10/25/17 at 10:00; Stop 10/29/17 at 09:59; Status DC Insulin Detemir (Levemir Inj) 8 units Q12H SQ Last administered on 11/16/17at 11 :33; Start 10/26/17 at 12:00 Acetaminophen (Tylenol 650 Mg/ 20 ml Liq) 650 mg Q6H PRN PEG fever; Start 10/26 at 06:45 Oxycodone HCl (Roxicodone Intensol Liq) 5 mg Q6H PRN PO pain 6-10; Start at 11:00 Iohexol (Omnipaque 350 Inj) 75 ml STK-MED ONCE IVCONTRAST Last administered on 11/01/17at 16:59; Start 11/01/17 at 16:59; Stop 11/01/17 at 17:00; Status DC Dextrose (D50w (Vial) Inj) 50 ml UNSCH PRN IV PUSH HYPOGLYCEMIA-SEE COMMENTS; Start 11/04/17 at 12:30 Glucagon (Glucagon Inj) 1 mg UNSCH PRN OTHER HYPOGLYCEMIA-SEE COMMENTS; Start 11/04/17 at 12:30 Insulin Human Regular (NovoLIN R SUPPLEMENTAL SCALE) 1 Q6H SQ Last administered on 11/16/17at 11:33; Start 11/04/17 at 12:30 Dextrose (D50w (Vial) Inj) 25 ml ONCE ONCE IV PUSH Last administered on at 12:54; Start 11/04/17 at 12:30; Stop 11/04/17 at 12:35; Status DC Metoclopramide HCl (Reglan Inj) 10 mg Q8HR IV PUSH Last administered on at 05:41; Start 11/05/17 at 22:00; Stop 11/07/17 at 13:32; Status DC Amoxicillin/ Clavulanate Potassium (Augmentin 600 Mg/5 ml Liq) 600 mg Q12H PO Last administered on 11/13/17at 23:56; Start 11/07/17 at 12:00; Stop 11/14/17 at 11:59; Status DC Metoclopramide HCl (Reglan Liq) 10 mg Q8HR PO Last administered on 11/16/17at 14:04; Start 11/07/17 at 14:30 Albuterol/ Ipratropium (Duoneb Neb) 1 ampule Q6HR NEB NEB Last administered on 11/12/17at 09:08; Start 11/08/17 at 10:30; Stop 11/12/17 at 10:29; Status DC Cholestyramine Resin (Questran Light Pkt) 4 gm BID PRN PEG DIARRHEA; Start at 13:30 Furosemide (Lasix Inj) 20 mg BID@18 IV PUSH Last administered on 11/14/17at 08:32; Start 11/13/17 at 17:00; Stop 11/14/17 at 14:49; Status DC Furosemide (Lasix Inj) 20 mg DAILY IV PUSH Last administered on 11/15/17at 09:00 ; Start 11/15/17 at 09:00; Stop 11/16/17 at 08:59; Status DC Sodium Chloride (NS Flush) 2 ml BID IV FLUSH ; Start 11/16/17 at 10:45; Status Cancel Sodium Chloride (NS Flush) 2 ml BID IV FLUSH ; Start 11/16/17 at 21:00 A/P Problem List: (1) Acute ischemic left middle cerebral artery (MCA) stroke ICD Code: I63.512 - Cerebral infarction due to unspecified occlusion or stenosis of left middle cerebral artery Status: Acute (2) Acute respiratory failure ICD Code: J96.00 - Acute respiratory failure, unspecified whether with hypoxia or hypercapnia (3) Right hemiplegia ICD Code: G81.91 - Hemiplegia, unspecified affecting right dominant side Status: Acute (4) Sacral decubitus ulcer ICD Code: L89.159 - Pressure ulcer of sacral region, unspecified stage Status: Chronic (5) HCAP (healthcare-associated pneumonia) ICD Code: J18.9 - Pneumonia, unspecified organism Status: Resolved (6) 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 She underwent ORIF on 04/21/17 and on 04/24 a stroke alert was called as she was found to have right hemiparesis with left gaze. She has a poor prognosis based on her lack of overall recovery over the last 6+ months. Patient has no acute issues, no change in care plan. Shortness of breath/desaturation-chest x-ray done 11/13/2017, personally reviewed , has evidence of pulmonary edema, started on Lasix 20 mg IV twice a day, BMP stable, not on fluids. Had another episode of desaturation today but corrected with suctioning. Will reduce to Lasix 20 mg IV daily until tomorrow and possibly discontinue or switch to oral if needed. Recheck BMP tomorrow. Urinary retention No leukocytosis U/A with large leuk esterase but many squamous cells Culture grew Aerococcus, finished Augmentin November 07 - November 14. Leavitt in place. Elevated D-dimer Ordered 10/31 for increasing FiO2 demand Since D-dimer elevated, CTA chest obtained to r/o PE which was negative Likely elevated in light of chronic illness RUE U/S negative for DVT - elevate R arm Left MCA stroke 5.5 mm of [id number] subfalcine herniation, diagnosed 04/24. Was not a candidate for thrombolysis at that time. Increasing edema seen on repeat CT 04/28 with a reduction in midline shift on another repeat on 04/30 Neurologic condition remained poor and she underwent trach 05/15/17 and PEG Persistent right-sided hemiparesis. Previously seen by neurology, signed off Previously seen by neurosurgery, signed off Continue daily ASA Hypertension / CHF Amlodipine 10 mg po daily, Doxazosin 1 mg peg daily, hydralazine 10 mg per per peg q8 hours. Clonidine 0.1 mg q6h prn Echo 10/06/17 LVSF EF = 25-30%. Chronic Tracheostomy /respiratory failure 10/22/2017 Pulmonary toilet, trach care Duo nebs as needed Pulm following, appreciate assistance Large left pneumothorax Resolved Chest tube placed 05/07, discontinued 05/12/17 Hepatitis C LFTs normalized Negative genotype/viral load Diabetes mellitus SSI Novolin R High-dose scale Levemir insulin 8u Q12 FEN PEG tube feeding with Glucerna 1.5 goal 45 cc/hr, per nutrition recommendations Loose Stools patient has been checked for Cdiff on multiple occasions, most recently 11/04 Cdiff negative already on lactinex bid 11/12 will add questran bid and monitor for improvement, consider increasing dose as needed Anal Fissure continue wound care DVT prophylaxis Heparin Discharge Planning Aggressive therapy, full code per palliative. Needs placement Problem Qualifiers (1) Acute respiratory failure: Qualified Codes: J96.00 - Acute respiratory failure, unspecified whether with hypoxia or hypercapnia (2) Sacral decubitus ulcer: Qualified Codes: L89.152 - Pressure ulcer of sacral region, stage 2 (3) Chronic respiratory failure: Qualified Codes: J96.11 - Chronic respiratory failure with hypoxia Ricardo Shafer DO Nov 16, 2017 14:27
[2017-11-16] MEDS: SODIUM CHLORIDE 0.9% FLUSH 10 ML FLUSH IV FLUSH SCH (20:30)
[2017-11-17] VITALS (8 sets, daily range): BP systolic 122–142; BP diastolic 53–80; PULSE 56–81; RESP 16–20; TEMP 97.9–99.6; O2SAT 95–98
[2017-11-17] MEDS: ARTIFICIAL TEARS OPTH SOLN 15 ML BTL EACH EYE SCH ×3 (06:00→21:05)
[2017-11-17] MEDS: METOCLOPRAMIDE HCL SYRUP 10 MG/10 ML UDC PO SCH ×3 (06:00→21:06)
[2017-11-17] MEDS: hydrALAZINE HCL 10 MG TAB PEG SCH ×3 (06:00→21:05)
[2017-11-17] MEDS: HEPARIN SODIUM - SQ 10,000 UNITS/ML VIAL SQ SCH ×3 (06:00→21:05)
[2017-11-17] MEDS: INSULIN NovoLIN REGULAR SUPPLEMENTAL SCALE SQ SCH ×3 (06:30→17:59)
--- NOTE | 2017-11-17 10:08 | HHI.PR ---
Subjective Remarks The patient reportedly speaks [place]ian, although she has not been responsive to verbal stimuli at all. Nurse present who speaks [place]ian and attempts to communicate with the patient. No response. Does not follow commands or even open eyes to verbal stimuli. No acute events overnight. Objective Vitals Vital Signs Date Time Temp Pulse Resp B/P (MAP) Pulse Ox O2 Delivery O2 Flow Rate FiO2 11/17/17 08:53 95 T-piece 6.00 28 11/17/17 04:00 99.6 67 16 124/59 (80) 97 11/17/17 00:00 99.4 70 16 142/67 (92) 97 11/16/17 21:08 97 T-piece 6.00 28 11/16/17 20:00 99.1 75 20 143/72 (95) 99 11/16/17 16:00 97.5 78 26 138/67 (90) 98 11/16/17 12:00 98.6 71 24 130/60 (83) 98 I/O 11/16/17 11/16/17 11/16/17 11/17/17 11/17/17 11/17/17 07:00 15:00 23:00 07:00 15:00 23:00 Intake Total 1105 ml 940 ml 600 ml Output Total 1300 ml 450 ml 300 ml Balance -195 ml 490 ml 300 ml Tube Feeding 460 ml 540 ml 600 ml Other 645 ml 400 ml Output Urine Total 1300 ml 450 ml 300 ml Bladder Scan Volume Amount 1000 ml 1000 ml 1000 ml # Bowel Movements 1 1 Result Diagram: 11/16/17 0947 11/16/17 0947 Imaging Last Impressions Chest X-Ray 11/13/17 0000 Signed Impressions: Service Date/Time: October 15:36 - CONCLUSION: 1. Cardiomegaly with worsening pulmonary edema pattern. 2. Probable trace left pleural effusion. Alejo De La Vega MD Upper Extremity Ultrasound 11/04/17 0000 Signed Impressions: Service Date/Time: Saturday, November 04, 2017 09:57 - CONCLUSION: No thrombus observed. Subcutaneous edema noted. Deangelo Wren Jr., MD Abdomen X-Ray 11/04/17 0000 Signed Impressions: Service Date/Time: Saturday, November 04, 2017 11:58 - CONCLUSION: Gaseous distention of bowel loops could be ileus but unchanged. Benja Ramsey MD CT Angiography 11/01/17 0000 Signed Impressions: Service Date/Time: Wednesday, November 01, 2017 16:47 - CONCLUSION: No evidence for pulmonary embolism. Please see above. Choco Mustafa MD Thoracentesis 08/05/17 1535 Signed Impressions: Service Date/Time: Saturday, August 05, 2017 16:08 - CONCLUSION: Uncomplicated CT-guided thoracentesis. Sage Adler MD Chest Ultrasound 08/02/17 0000 Signed Impressions: Service Date/Time: Tuesday, August 01, 2017 22:06 - CONCLUSION: 1. Moderate right pleural effusion, as above. Alejo De La Vega MD Hip and Pelvis X-Ray 07/09/17 0000 Signed Impressions: Service Date/Time: Sunday, July 09, 2017 14:04 - CONCLUSION: Anatomic alignment. Ricardo Middleton MD FACR Liver Ultrasound 06/19/17 0000 Signed Impressions: Service Date/Time: June 13:20 - CONCLUSION: 1. Mildly increased echotexture of the liver characteristic of hepatic steatosis. 2. Gallbladder sludge. Obdulio Sam MD Head CT 05/15/17 0000 Signed Impressions: Service Date/Time: May 19:59 - CONCLUSION: 1. 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 2. No bleed or new/acute infarct. Obdulio Simms MD Gall Bladder Ultrasound 05/08/17 0000 Signed Impressions: Service Date/Time: May 08:23 - CONCLUSION: Focally unremarkable appearance of the gallbladder Obdulio Chun MD Abdomen/Pelvis CT 05/07/17 0000 Signed Impressions: Service Date/Time: Sunday, May 07, 2017 13:23 - CONCLUSION: 1. Large left pneumothorax. 2. Bilateral lower lobe consolidation and bilateral moderate size pleural effusions. 3. Significant soft tissue thickening of the right lateral chest wall and left gluteus muscle. 4. Mild ascites. The findings were called to Dr. Carney. Deangelo Zamora MD Chest CT 04/30/17 0000 Signed Impressions: Service Date/Time: Sunday, April 30, 2017 09:20 - CONCLUSION: 1. Bilateral pulmonary infiltrates more pronounced within the lower lobes with tiny bilateral pleural effusions. Material seen filling the lower lobe bronchi bilaterally either related to purulent material or perhaps mucus plugging. Deangelo Wren Jr., MD Carotid Artery Ultrasound 04/24/17 0000 Signed Impressions: Service Date/Time: April 09:45 - CONCLUSION: 1. No hemodynamically significant carotid artery stenosis. Arnie Middleton MD Hip X-Ray 04/21/17 0000 Signed Impressions: Service Date/Time: Friday, April 21, 2017 11:36 - CONCLUSION: Fluoroscopic images during placement of intramedullary siomara left femur. Benja Ramsey MD Objective Remarks General: Elderly female in no acute distress. Heart: Regular rate and rhythm. No murmur. Lungs: Clear to auscultation bilaterally. No wheezes, rales, or rhonchi. Breathing is nonlabored. Abdomen: Soft, nontender, nondistended. Extremities: No lower extremity edema. Psych: Does not respond to verbal stimuli. Procedures PEG tube Urinary Catheter: No Vascular Central Line Catheter: No A/P Problem List: (1) Acute ischemic left middle cerebral artery (MCA) stroke ICD Code: I63.512 - Cerebral infarction due to unspecified occlusion or stenosis of left middle cerebral artery Status: Acute (2) Acute respiratory failure ICD Code: J96.00 - Acute respiratory failure, unspecified whether with hypoxia or hypercapnia (3) Right hemiplegia ICD Code: G81.91 - Hemiplegia, unspecified affecting right dominant side Status: Acute (4) Sacral decubitus ulcer ICD Code: L89.159 - Pressure ulcer of sacral region, unspecified stage Status: Chronic (5) HCAP (healthcare-associated pneumonia) ICD Code: J18.9 - Pneumonia, unspecified organism Status: Resolved (6) 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 ICD Code: A49.8 - Other bacterial infections of unspecified site; Z16.24 - Resistance to multiple antibiotics Status: Acute (7) CVA (cerebral vascular accident) ICD Code: I63.9 - Cerebral infarction, unspecified Status: Chronic (8) Chronic respiratory failure ICD Code: J96.10 - Chronic respiratory failure, unspecified whether with hypoxia or hypercapnia Status: Chronic Assessment and Plan 1. Respiratory failure, chronic tracheostomy: Continue pulmonary toilet, trach care. Duoneb as needed. Trach management per pulmonology. 2. Urinary retention: Leavitt catheter in place. 3. UTI: Urine culture grew Aerococcus. Completed course of Augmentin. 4. Left MCA stroke: 5.5 mm of [id number] subfalcine herniation, diagnosed . Was not a candidate for thrombolysis at the time. Neurologic condition remained poor. She has persistent right-sided hemiparesis. Neurology and neurosurgery have signed off. Continue daily aspirin. 5. Shortness of breath, desaturation: Pulmonary edema on x-ray 11/13/17. Continue Lasix. 6. Hypertension: Continue amlodipine, doxazosin, hydralazine. Clonidine as needed. 7. Chronic systolic congestive heart failure: Echocardiogram 10/06/17 showed ejection fraction 25-30%. Continue current management. 8. Large left pneumothorax: Resolved. 9. Hepatitis C: LFTs normalized. 10. Diabetes mellitus: Patient initially presented with DKA. Continue Levemir. Monitor Accu-Cheks and cover with sliding scale insulin. 11. FEN: Glucerna per PEG tube. 12. Loose stools: C. difficile negative on multiple occasions. Continue Lactinex. Continue Questran. Likely secondary to tube feeds. 13. Anal fissure: Continue wound care. 14. DVT prophylaxis: Heparin. Problem Qualifiers (1) Acute respiratory failure: Qualified Codes: J96.00 - Acute respiratory failure, unspecified whether with hypoxia or hypercapnia (2) Sacral decubitus ulcer: Qualified Codes: L89.152 - Pressure ulcer of sacral region, stage 2 (3) Chronic respiratory failure: Qualified Codes: J96.11 - Chronic respiratory failure with hypoxia Janes Ervin MD Nov 17, 2017 10:08
[2017-11-17] MEDS: ASPIRIN 325 MG TAB DOBHOFF SCH (10:16)
[2017-11-17] MEDS: LANSOPRAZOLE SOLUTAB 30 MG TAB NG SCH (10:16)
[2017-11-17] MEDS: LACTOBACILLUS ACIDOPHILUS TAB PEG SCH ×2 (10:16→21:05)
[2017-11-17] MEDS: CALCIUM/VITAMIN D 250 MG/125 U TAB PEG SCH ×3 (10:17→17:59)
[2017-11-17] MEDS: CHOLECALCIFEROL (VIT D3) 5000 UNIT CAP PEG SCH (10:17)
[2017-11-17] MEDS: DOXAZOSIN MESYLATE 1 MG TAB PEG SCH (10:17)
[2017-11-17] MEDS: SODIUM CHLORIDE 0.9% FLUSH 10 ML FLUSH IV FLUSH SCH ×2 (10:17→21:00)
[2017-11-17] MEDS: INSULIN DETEMIR 100 UNITS/ML VIAL SQ SCH (12:00)
--- NOTE | 2017-11-17 19:51 | HHI.PR ---
Subjective Remarks No events overnight. Patient is on TP's with 40% FIO2. . Tolerating tube feeds. Awake, looks around had episode of desaturation No diarrhoea Objective Vital Signs Vital Signs Date Time Temp Pulse Resp B/P (MAP) Pulse Ox O2 Delivery O2 Flow Rate FiO2 11/17/17 16:00 98.4 58 18 126/71 (89) 98 11/17/17 12:00 98.0 68 18 130/64 (86) 98 11/17/17 08:53 95 T-piece 6.00 28 11/17/17 08:00 97.9 81 20 122/80 (94) 97 11/17/17 04:00 99.6 67 16 124/59 (80) 97 11/17/17 00:00 99.4 70 16 142/67 (92) 97 11/16/17 21:08 97 T-piece 6.00 28 11/16/17 20:00 99.1 75 20 143/72 (95) 99 I/O 11/16/17 11/16/17 11/16/17 11/17/17 11/17/17 11/17/17 07:00 15:00 23:00 07:00 15:00 23:00 Intake Total 1105 ml 940 ml 600 ml Output Total 1300 ml 450 ml 300 ml 450 ml Balance -195 ml 490 ml 300 ml -450 ml Tube Feeding 460 ml 540 ml 600 ml Other 645 ml 400 ml Output Urine Total 1300 ml 450 ml 300 ml 450 ml Bladder Scan Volume Amount 1000 ml 1000 ml 1000 ml 1000 ml 1000 ml # Bowel Movements 1 1 Result Diagram: 11/16/1747 11/16/17 0947 Objective Remarks GENERAL: Elderly female,NAD SKIN: Warm and dry. HEAD: Normocephalic. EYES: No scleral icterus. No injection or drainage. NECK: Supple, trachea midline. No JVD or lymphadenopathy. + trach CARDIOVASCULAR: Regular rate and rhythm without murmurs, gallops, or rubs. RESPIRATORY: Breath sounds equal bilaterally. No accessory muscle use. GASTROINTESTINAL: Abdomen soft, non-tender, nondistended. MUSCULOSKELETAL: No cyanosis, or edema. BACK: Nontender without obvious deformity. No CVA tenderness. A/P Assessment and Plan Chronic resp failure, ,S/P Trach CVA Pneumonia Calcified Granuloma LLL Pseudomonas Tracheobronchitis, PLAN: Continue with TP's, keep sats >92% Bronchodilators, Pulm toilet, trach care CT chest 11/01: No PE,adenopathy in the right paratracheal, subcarinal and hilar regions with numerous prominent lymph nodes seen. Continue with abx ( Augmentin)monitor for signs of infections ( fever, WBC) follow up on urine cx Continue with tube feeds- Glucerna 1.5 @ 45ml/hr GI/DVT prophylaxis Continue treatment plan. LAI RN at Chris Rizo MD Nov 17, 2017 19:51
[2017-11-18] VITALS (8 sets, daily range): BP systolic 98–124; BP diastolic 42–62; PULSE 42–45; RESP 14–20; TEMP 98.3–98.6; O2SAT 94–99
[2017-11-18] MEDS: INSULIN NovoLIN REGULAR SUPPLEMENTAL SCALE SQ SCH ×4 (00:30→17:30)
[2017-11-18] MEDS: METOCLOPRAMIDE HCL SYRUP 10 MG/10 ML UDC PO SCH ×2 (05:43→14:08)
[2017-11-18] MEDS: hydrALAZINE HCL 10 MG TAB PEG SCH ×3 (05:43→21:02)
[2017-11-18] MEDS: HEPARIN SODIUM - SQ 10,000 UNITS/ML VIAL SQ SCH ×3 (05:44→21:02)
[2017-11-18] MEDS: ARTIFICIAL TEARS OPTH SOLN 15 ML BTL EACH EYE SCH ×3 (06:00→21:03)
[2017-11-18] MEDS: CHOLECALCIFEROL (VIT D3) 5000 UNIT CAP PEG SCH (09:00)
[2017-11-18] MEDS: ASPIRIN 325 MG TAB DOBHOFF SCH (09:04)
[2017-11-18] MEDS: SODIUM CHLORIDE 0.9% FLUSH 10 ML FLUSH IV FLUSH SCH ×2 (09:04→21:00)
[2017-11-18] MEDS: CALCIUM/VITAMIN D 250 MG/125 U TAB PEG SCH ×3 (09:04→17:16)
[2017-11-18] MEDS: LANSOPRAZOLE SOLUTAB 30 MG TAB NG SCH (09:04)
[2017-11-18] MEDS: LACTOBACILLUS ACIDOPHILUS TAB PEG SCH ×2 (09:04→21:02)
[2017-11-18] MEDS: DOXAZOSIN MESYLATE 1 MG TAB PEG SCH (09:04)
[2017-11-18] MEDS: INSULIN DETEMIR 100 UNITS/ML VIAL SQ SCH ×2 (12:47)
[2017-11-18] MEDS ORDERED: SODIUM CHLOR 0.9% 250 ML INJ 250 ML IV ONE (14:30)
--- NOTE | 2017-11-18 15:09 | HHI.PR ---
Subjective Remarks Patient seen and examined today laying in bed. Awake and alert. Does not follow any commands. Tracks occasionally to the left side more so than the right. Moves left upper extremity. As per nursing, patient had bradycardia today. No fevers. Blood pressure within normal. Most of the medications for blood pressure has been held by nursing. Objective Vitals Vital Signs Date Time Temp Pulse Resp B/P (MAP) Pulse Ox O2 Delivery O2 Flow Rate FiO2 11/18/17 12:00 98.3 42 14 112/49 (70) 11/18/17 09:02 98 T-piece 6.00 28 11/18/17 08:00 98.6 42 20 118/49 (72) 11/18/17 04:00 98.4 44 18 124/58 (80) 98 11/18/17 00:00 98.5 45 18 98/42 (60) 99 11/17/17 22:01 97 T-piece 6.00 28 11/17/17 20:00 98.6 56 18 123/53 (76) 98 11/17/17 16:00 98.4 58 18 126/71 (89) 98 I/O 11/17/17 11/17/17 11/17/17 11/18/17 11/18/17 11/18/17 07:00 15:00 23:00 07:00 15:00 23:00 Intake Total 600 ml 1503 ml Output Total 300 ml 450 ml 250 ml Balance 300 ml -450 ml 1253 ml Tube Feeding 600 ml 1003 ml Other 500 ml Output Urine Total 300 ml 450 ml 250 ml Bladder Scan Volume Amount 1000 ml 1000 ml 1000 ml # Bowel Movements 1 1 Result Diagram: 11/16/17 0947 11/16/17 0947 Imaging Last Impressions Chest X-Ray 11/13/17 0000 Signed Impressions: Service Date/Time: October 15:36 - CONCLUSION: 1. Cardiomegaly with worsening pulmonary edema pattern. 2. Probable trace left pleural effusion. Alejo De La Vega MD Upper Extremity Ultrasound 11/04/17 0000 Signed Impressions: Service Date/Time: Saturday, November 04, 2017 09:57 - CONCLUSION: No thrombus observed. Subcutaneous edema noted. Deangelo Wren Jr., MD Abdomen X-Ray 11/04/17 0000 Signed Impressions: Service Date/Time: Saturday, November 04, 2017 11:58 - CONCLUSION: Gaseous distention of bowel loops could be ileus but unchanged. Benja Ramsey MD CT Angiography 11/01/17 0000 Signed Impressions: Service Date/Time: Wednesday, November 01, 2017 16:47 - CONCLUSION: No evidence for pulmonary embolism. Please see above. Choco Mustafa MD Thoracentesis 08/05/17 1535 Signed Impressions: Service Date/Time: Saturday, August 05, 2017 16:08 - CONCLUSION: Uncomplicated CT-guided thoracentesis. Sage Adler MD Chest Ultrasound 08/02/17 0000 Signed Impressions: Service Date/Time: Tuesday, August 01, 2017 22:06 - CONCLUSION: 1. Moderate right pleural effusion, as above. Alejo De La Vega MD Hip and Pelvis X-Ray 07/09/17 0000 Signed Impressions: Service Date/Time: Sunday, July 09, 2017 14:04 - CONCLUSION: Anatomic alignment. Ricardo Middleton MD FACR Liver Ultrasound 06/19/17 0000 Signed Impressions: Service Date/Time: June 13:20 - CONCLUSION: 1. Mildly increased echotexture of the liver characteristic of hepatic steatosis. 2. Gallbladder sludge. Obdulio Sam MD Head CT 05/15/17 0000 Signed Impressions: Service Date/Time: May 19:59 - CONCLUSION: 1. 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 2. No bleed or new/acute infarct. Obdulio Simms MD Gall Bladder Ultrasound 05/08/17 0000 Signed Impressions: Service Date/Time: May 08:23 - CONCLUSION: Focally unremarkable appearance of the gallbladder Obdulio Chun MD Abdomen/Pelvis CT 05/07/17 0000 Signed Impressions: Service Date/Time: Sunday, May 07, 2017 13:23 - CONCLUSION: 1. Large left pneumothorax. 2. Bilateral lower lobe consolidation and bilateral moderate size pleural effusions. 3. Significant soft tissue thickening of the right lateral chest wall and left gluteus muscle. 4. Mild ascites. The findings were called to Dr. Carney. Deangelo Zamora MD Chest CT 04/30/17 0000 Signed Impressions: Service Date/Time: Sunday, April 30, 2017 09:20 - CONCLUSION: 1. Bilateral pulmonary infiltrates more pronounced within the lower lobes with tiny bilateral pleural effusions. Material seen filling the lower lobe bronchi bilaterally either related to purulent material or perhaps mucus plugging. Deangelo Wren Jr., MD Carotid Artery Ultrasound 04/24/17 0000 Signed Impressions: Service Date/Time: April 09:45 - CONCLUSION: 1. No hemodynamically significant carotid artery stenosis. Arnie Middleton MD Hip X-Ray 04/21/17 0000 Signed Impressions: Service Date/Time: Friday, April 21, 2017 11:36 - CONCLUSION: Fluoroscopic images during placement of intramedullary siomara left femur. Benja Ramsey MD Objective Remarks GENERAL: This is a well-nourished, well-developed patient, in no apparent distress. SKIN: Warm and dry HEENT: Normocephalic. Pupils equal round and reactive. Nose without bleeding. Airway patent. NECK: Trachea midline. Tracheostomy in place suction green thick secretions CARDIOVASCULAR: Bradycardic without murmurs, gallops, or rubs. RESPIRATORY: Diminished bases. No wheezes, rales, or rhonchi. GASTROINTESTINAL: Abdomen soft, non-tender, nondistended. Bowel Sounds normoactive x4. PEG in place in continuous feeding. : Leavitt catheter in place draining yellow urine. MUSCULOSKELETAL: Extremities without clubbing, cyanosis, or edema. NEUROLOGICAL: Awake and alert. Nonverbal. Moves left upper extremity. Right upper extremity flaccid. Bilateral lower extremity without spontaneous movement Procedures PEG tube A/P Problem List: (1) Acute ischemic left middle cerebral artery (MCA) stroke ICD Code: I63.512 - Cerebral infarction due to unspecified occlusion or stenosis of left middle cerebral artery Status: Acute (2) Acute respiratory failure ICD Code: J96.00 - Acute respiratory failure, unspecified whether with hypoxia or hypercapnia (3) Right hemiplegia ICD Code: G81.91 - Hemiplegia, unspecified affecting right dominant side Status: Acute (4) Sacral decubitus ulcer ICD Code: L89.159 - Pressure ulcer of sacral region, unspecified stage Status: Chronic (5) HCAP (healthcare-associated pneumonia) ICD Code: J18.9 - Pneumonia, unspecified organism Status: Resolved (6) 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 She underwent ORIF on 04/21/17 and on 04/24 a stroke alert was called as she was found to have right hemiparesis with left gaze. She has a poor prognosis based on her lack of overall recovery over the last 6+ months. Bradycardia -New onset -Checked EKG, appears AV junctional 43HR. Compared to previous EKG it appears to be almost the same however, lower HR is concerning. -Check labs -Hold medications that can affect heart rate including Reglan, bp meds - -BP within normal but will give 250ML bolus. Albuterol. Monitor for trach plugging. -Will consult cardiology for further evaluation and recommendation Hypertension / CHF Amlodipine 10 mg po daily, Doxazosin 1 mg peg daily, hydralazine 10 mg per per peg q8 hours. -Hold for now secondary to bradycardia Clonidine 0.1 mg q6h prn -hold Echo 10/06/17 LVSF EF = 25-30%. Patient should be started on MARIA/ARB for EF of 25-30%, also need to start a low-dose beta-selena. Will hold off restarting medications for now unless patient is bradycardic. Will consult cardiology as above. Left MCA stroke -5.5 mm of [id number] subfalcine herniation, diagnosed 04/24. Was not a candidate for thrombolysis at that time. -Increasing edema seen on repeat CT 04/28 with a reduction in midline shift on another repeat on 04/30 -Neurologic condition remained poor and she underwent trach 05/15/17 and PEG -Persistent right-sided hemiparesis. -Previously seen by neurology, signed off -Previously seen by neurosurgery, signed off -Continue daily ASA -PT UTI Urinary retention Urine culture grew Aerococcus. Completed course of Augmentin. Leavitt in place draining yellow urine Chronic Tracheostomy /respiratory failure 10/22/2017 -Pulmonary toilet, trach care -Duo nebs as needed -Pulm following, appreciate assistance -Chest x-ray 11/13/17 showed pulmonary edema continue on Lasix Large left pneumothorax -Chest tube placed 05/07, discontinued 05/12/17 -Resolved Hepatitis C -LFTs normalized -Negative genotype/viral load Diabetes mellitus -SSI Novolin R High-dose scale -Levemir insulin 8u Q12 -Monitor Accu-Cheks Tube Feeds, PEG Loose Stools -patient has been checked for Cdiff on multiple occasions, most recently 11/04 Cdiff negative -already on lactinex bid -Questran bid and monitor for improvement, consider increasing dose as needed -This is possibly related to tube feedings. Will ask dietary to consider tube feeds at night only. Anal Fissure continue wound care DVT prophylaxis heparin [facility]ed [facility], and Dr. Denney Discharge Planning Difficulty placement. Case management following. Problem Qualifiers (1) Acute respiratory failure: Qualified Codes: J96.00 - Acute respiratory failure, unspecified whether with hypoxia or hypercapnia (2) Sacral decubitus ulcer: Qualified Codes: L89.152 - Pressure ulcer of sacral region, stage 2 (3) Chronic respiratory failure: Qualified Codes: J96.11 - Chronic respiratory failure with hypoxia Kassy Alvarado Nov 18, 2017 15:09
[2017-11-18] MEDS ORDERED: ALBUTEROL SULFATE 2 MG TAB PO ONE (15:30)
[2017-11-18 16:57] LABS: HEMOGLOBIN 9.4 GM/DL (11.6-15.3); MEAN CELL VOLUME 100.9 FL (80.0-100.0); MEAN CORPUSCULAR HGB CONC 34.7 % (32.0-36.0); MEAN PLATELET VOLUME 9.3 FL (7.0-11.0); PLATELET COUNT 291 TH/MM3 (150-450); RED BLOOD COUNT 2.67 MIL/MM3 (4.00-5.30); RED CELL DISTRIBUTION WIDTH 16.1 % (11.6-17.2); WHITE BLOOD COUNT 11.7 TH/MM3 (4.0-11.0)
[2017-11-18 17:17] LABS: BICARBONATE 28.8 MEQ/L (21.0-32.0); CALCIUM 9.2 MG/DL (8.5-10.1); CREATININE 0.75 MG/DL (0.50-1.00)
[2017-11-18] MEDS ORDERED: DEXTROSE 50% IN WATER 50 ML SYRINGE IV PUSH ONE (18:00)
[2017-11-18] MEDS ORDERED: INSULIN HUMAN REGULAR 1,000 UNITS/10 ML VIAL SQ ONE (18:00)
--- NOTE | 2017-11-18 18:42 | HHI.PR ---
Subjective Remarks No events overnight. Patient is on TP's with 40% FIO2. . Tolerating tube feeds. Awake, looks around had episode of desaturation No diarrhoea Has Bradycardia, HR 45 Cardiology consulted Objective Vital Signs Vital Signs Date Time Temp Pulse Resp B/P (MAP) Pulse Ox O2 Delivery O2 Flow Rate FiO2 11/18/17 16:00 98.5 43 107/50 (69) 11/18/17 12:00 98.3 42 14 112/49 (70) 11/18/17 09:02 98 T-piece 6.00 28 11/18/17 08:00 98.6 42 20 118/49 (72) 11/18/17 04:00 98.4 44 18 124/58 (80) 98 11/18/17 00:00 98.5 45 18 98/42 (60) 99 11/17/17 22:01 97 T-piece 6.00 28 11/17/17 20:00 98.6 56 18 123/53 (76) 98 I/O 11/17/17 11/17/17 11/17/17 11/18/17 11/18/17 11/18/17 06:59 14:59 22:59 06:59 14:59 22:59 Intake Total 600 ml 1503 ml 1236 ml Output Total 300 ml 450 ml 250 ml 225 ml Balance 300 ml -450 ml 1253 ml 1011 ml IV Total 250 ml Tube Feeding 600 ml 1003 ml 561 ml Other 500 ml 425 ml Output Urine Total 300 ml 450 ml 250 ml 225 ml Bladder Scan Volume Amount 1000 ml 1000 ml 1000 ml # Bowel Movements 1 1 2 Result Diagram: 11/18/17 1629 11/18/17 1629 Objective Remarks GENERAL: Elderly female,NAD SKIN: Warm and dry. HEAD: Normocephalic. EYES: No scleral icterus. No injection or drainage. NECK: Supple, trachea midline. No JVD or lymphadenopathy. + trach CARDIOVASCULAR: Regular rate and rhythm without murmurs, gallops, or rubs. RESPIRATORY: Breath sounds equal bilaterally. No accessory muscle use. GASTROINTESTINAL: Abdomen soft, non-tender, nondistended. MUSCULOSKELETAL: No cyanosis, or edema. BACK: Nontender without obvious deformity. No CVA tenderness. A/P Assessment and Plan Chronic resp failure, ,S/P Trach CVA Pneumonia Calcified Granuloma LLL Pseudomonas Tracheobronchitis, PLAN: Continue with TP's, keep sats >92% Bronchodilators, Pulm toilet, trach care CT chest 11/01: No PE,adenopathy in the right paratracheal, subcarinal and hilar regions with numerous prominent lymph nodes seen. Continue with abx ( Augmentin)monitor for signs of infections ( fever, WBC) follow up on urine cx Continue with tube feeds- Glucerna 1.5 @ 45ml/hr GI/DVT prophylaxis Continue treatment plan. LAI RN at [facility] MD Nov 18, 2017 18:42
[2017-11-19] VITALS (8 sets, daily range): BP systolic 117–150; BP diastolic 53–66; PULSE 42–88; RESP 17–24; TEMP 98.3–98.6; O2SAT 94–100
[2017-11-19] MEDS: INSULIN DETEMIR 100 UNITS/ML VIAL SQ SCH ×2 (00:51→12:00)
[2017-11-19] MEDS: INSULIN NovoLIN REGULAR SUPPLEMENTAL SCALE SQ SCH ×4 (00:52→18:19)
[2017-11-19] MEDS: hydrALAZINE HCL 10 MG TAB PEG SCH ×3 (05:19→21:06)
[2017-11-19] MEDS: ARTIFICIAL TEARS OPTH SOLN 15 ML BTL EACH EYE SCH ×3 (05:19→21:00)
[2017-11-19] MEDS: HEPARIN SODIUM - SQ 10,000 UNITS/ML VIAL SQ SCH ×3 (05:20→21:06)
--- NOTE | 2017-11-19 08:20 | PD.CONS ---
HPI Consult Requested By Primary Care Physician Unknown History of Present Illness 77-year-old female here after prolonged hospitalization including left MCA CVA, cardiomyopathy, and chronic ventilator dependent respiratory failure. The patient was noted to be bradycardic and we are consulted for recommendations. The patient is nonverbal and unable to contribute to history taking. Her EKG shows AV junctional rhythm with bradycardia rate 43 and we were consulted for recommendation. Review of Systems ROS Limitations: Intubated Past Family Social History Allergies: Coded Allergies: No Known Allergies (Unverified , 04/20/17) Past Medical History Hip fracture CHF Hypertension Left MCA CVA with right-sided paralysis and encephalopathy Urinary retention Chronic tracheostomy and respiratory failure History of left pneumothorax Hepatitis C Diabetes mellitus Tube feed dependent Reported Medications Reported Meds & Active Scripts Active Calcium 600+D 200 (Calcium Carbonate-Vitamin D) 600-200 Mg-Unit Tab 1 Tab PO BID 30 Days Vitamin D3 (Cholecalciferol) 2,000 Unit Cap 2,000 Units PO DAILY Ergocalciferol 50,000 Unit Cap 50,000 Units PO Q7D Xarelto (Rivaroxaban) 10 Mg Tab 10 Mg PO DAILY 14 Days Hydrocodone-Acetaminophen 7.5-325 mg Tab 1 Tab PO Q4H PRN Reported Glimepiride 4 Mg Tab 4 Mg PO DAILY@1600 Take with breakfast or first main meal Active Ordered Medications Current Medications Medications (Trade) Dose Ordered Sig/Zeferino Route Start Time Stop Time Status Last Admin (Narcan Inj) 0.4 mg UNSCH PRN IV 04/20/17 17:15 (NS Flush) 2 ml UNSCH PRN IV FLUSH 04/24/17 09:30 09/17/17 08:48 (Aspirin) 325 mg DAILY DOBHOFF 04/27/17 09:00 11/18/17 09:04 (Prevacid Odt) 30 mg DAILY NG 05/08/17 09:00 11/18/17 09:04 (Tears Naturale Opth Soln) 1 drop Q8HR EACH EYE 06/12/17 07:15 11/19/17 05:19 (Nitroglycerin 2% Oint) 2 inch Q6H PRN TOPICAL 06/21/17 08:00 06/30/17 14:37 (Heparin Inj) 5,000 units Q8HR SQ 07/15/17 08:00 11/19/17 05:20 (Pill Splitter) 1 ea UNSCH PRN OTHER 09/05/17 11:00 (Apresoline) 10 mg Q8HR PEG 09/24/17 14:00 11/19/17 05:19 (Norvasc) 10 mg DAILY PEG 10/04/17 09:00 11/18/17 09:04 (Oscal-D 250-125) 250 mg TID PEG 10/03/17 13:00 11/18/17 17:16 (Vitamin D3) 5,000 units DAILY PEG 10/04/17 09:00 11/18/17 09:00 (Catapres) 0.1 mg Q6H PRN PEG 10/03/17 12:30 10/08/17 09:03 (Cardura) 1 mg DAILY PEG 10/04/17 09:00 Future Hold 11/18/17 09:04 (Lactinex) 1 tab Q12HR PEG 10/03/17 21:00 11/18/17 21:02 (Miralax) 17 gm DAILY PRN PEG 10/03/17 12:00 (Beneprotein Powder) 1 pack TID PRN G-TUBE 10/03/17 12:00 (Albuterol Neb) 2.5 mg Q2HR NEB PRN NEB 10/03/17 21:45 10/19/17 22:09 (Levemir Inj) 8 units Q12H SQ 10/26/17 12:00 11/19/17 00:51 (Tylenol 650 Mg/ 20 ml Liq) 650 mg Q6H PRN PEG 10/26/17 06:45 (Roxicodone Intensol Liq) 5 mg Q6H PRN PO 10/29/17 11:00 (D50w (Vial) Inj) 50 ml UNSCH PRN IV PUSH 11/04/17 12:30 (Glucagon Inj) 1 mg UNSCH PRN OTHER 11/04/17 12:30 (NovoLIN R SUPPLEMENTAL SCALE) 1 Q6H SQ 11/04/17 12:30 11/19/17 05:20 (Reglan Liq) 10 mg Q8HR PO 11/07/17 14:30 Future Hold 11/18/17 14:08 (Questran Light Pkt) 4 gm BID PRN PEG 11/12/17 13:30 (NS Flush) 2 ml BID IV FLUSH 11/16/17 21:00 11/18/17 21:00 Family History History of heart disease in family Social History Never smoker Physical Exam Vital Signs Vital Signs Date Time Temp Pulse Resp B/P (MAP) Pulse Ox O2 Delivery O2 Flow Rate FiO2 11/19/17 04:00 98.6 46 18 143/56 (85) 98 11/19/17 00:00 98.6 47 18 117/53 (74) 98 11/18/17 21:49 96 T-piece 40 11/18/17 20:00 98.6 45 18 113/62 (79) 94 11/18/17 16:00 98.5 43 107/50 (69) 11/18/17 12:00 98.3 42 14 112/49 (70) 11/18/17 09:02 98 T-piece 6.00 28 Physical Exam GENERAL: Well-developed well-nourished. In no acute distress. NECK: No carotid bruits. No JVD. CARDIOVASCULAR: Regular rate and rhythm. No murmur appreciated. RESPIRATORY: No accessory muscle use. Clear to auscultation. Breath sounds equal bilaterally. MUSCULOSKELETAL: No clubbing or cyanosis. No edema. NEUROLOGICAL: Encephalopathic, nonverbal. Laboratory Laboratory Tests Test 11/18/17 16:29 White Blood Count 11.7 Red Blood Count 2.67 Hemoglobin 9.4 Hematocrit 27.0 Mean Corpuscular Volume 100.9 Mean Corpuscular Hemoglobin 35.0 Mean Corpuscular Hemoglobin Concent 34.7 Red Cell Distribution Width 16.1 Platelet Count 291 Mean Platelet Volume 9.3 Blood Urea Nitrogen 50 Creatinine 0.75 Random Glucose 202 Calcium Level 9.2 Sodium Level 134 Potassium Level 5.6 Chloride Level 97 Carbon Dioxide Level 28.8 Anion Gap 8 Estimat Glomerular Filtration Rate 75 Date/Time Source Procedure Growth Status 07/25/17 10:35 Blood Peripheral Aerobic Blood Culture - Final NO GROWTH IN 5 DAYS Complete 07/25/17 10:35 Blood Peripheral Anaerobic Blood Culture - Final NO GROWTH IN 5 DAYS Complete 08/05/17 14:25 Fluid Pleural Fluid Gram Stain - Final Complete 08/05/17 14:25 Fluid Pleural Fluid Body Fluid Culture - Final NO GROWTH IN 72 HRS.--AEROBICALLY OR ... Complete 05/29/17 17:15 Stool Stool Stool Occult Blood (JEFFREY) - Final HEMOCCULT NEGATIVE Complete 10/18/17 16:30 Sputum Endotracheal Gram Stain - Final Complete 10/18/17 16:30 Sputum Culture - Final Serratia Marcescens Complete 11/08/17 04:20 Urine Catheterized Urine Urine Culture - Final 10-50,000 CFU/ML MIXED GRAM POSITIVE ... Complete Result Diagram: 11/18/17 1629 11/18/17 1629 Imaging Last Impressions Chest X-Ray 11/13/17 0000 Signed Impressions: Service Date/Time: October 15:36 - CONCLUSION: 1. Cardiomegaly with worsening pulmonary edema pattern. 2. Probable trace left pleural effusion. Alejo De La Vega MD Upper Extremity Ultrasound 11/04/17 0000 Signed Impressions: Service Date/Time: Saturday, November 04, 2017 09:57 - CONCLUSION: No thrombus observed. Subcutaneous edema noted. Deangelo Wren Jr., MD Abdomen X-Ray 11/04/17 0000 Signed Impressions: Service Date/Time: Saturday, November 04, 2017 11:58 - CONCLUSION: Gaseous distention of bowel loops could be ileus but unchanged. Benja Ramsey MD CT Angiography 11/01/17 0000 Signed Impressions: Service Date/Time: Wednesday, November 01, 2017 16:47 - CONCLUSION: No evidence for pulmonary embolism. Please see above. Choco Mustafa MD Thoracentesis 08/05/17 1535 Signed Impressions: Service Date/Time: Saturday, August 05, 2017 16:08 - CONCLUSION: Uncomplicated CT-guided thoracentesis. Sage Adler MD Chest Ultrasound 08/02/17 0000 Signed Impressions: Service Date/Time: Tuesday, August 01, 2017 22:06 - CONCLUSION: 1. Moderate right pleural effusion, as above. Alejo De La Vega MD Hip and Pelvis X-Ray 07/09/17 0000 Signed Impressions: Service Date/Time: Sunday, July 09, 2017 14:04 - CONCLUSION: Anatomic alignment. Ricardo Middleton MD FACR Liver Ultrasound 06/19/17 0000 Signed Impressions: Service Date/Time: June 13:20 - CONCLUSION: 1. Mildly increased echotexture of the liver characteristic of hepatic steatosis. 2. Gallbladder sludge. Obdulio Sam MD Head CT 05/15/17 0000 Signed Impressions: Service Date/Time: May 19:59 - CONCLUSION: 1. 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 2. No bleed or new/acute infarct. Obdulio Simms MD Gall Bladder Ultrasound 05/08/17 0000 Signed Impressions: Service Date/Time: May 08:23 - CONCLUSION: Focally unremarkable appearance of the gallbladder Obdulio Chun MD Abdomen/Pelvis CT 05/07/17 0000 Signed Impressions: Service Date/Time: Sunday, May 07, 2017 13:23 - CONCLUSION: 1. Large left pneumothorax. 2. Bilateral lower lobe consolidation and bilateral moderate size pleural effusions. 3. Significant soft tissue thickening of the right lateral chest wall and left gluteus muscle. 4. Mild ascites. The findings were called to Dr. Carney. Deangelo Zamora MD Chest CT 04/30/17 0000 Signed Impressions: Service Date/Time: Sunday, April 30, 2017 09:20 - CONCLUSION: 1. Bilateral pulmonary infiltrates more pronounced within the lower lobes with tiny bilateral pleural effusions. Material seen filling the lower lobe bronchi bilaterally either related to purulent material or perhaps mucus plugging. Deangelo Wren Jr., MD Carotid Artery Ultrasound 04/24/17 0000 Signed Impressions: Service Date/Time: April 09:45 - CONCLUSION: 1. No hemodynamically significant carotid artery stenosis. Arnie Middleton MD Hip X-Ray 04/21/17 0000 Signed Impressions: Service Date/Time: Friday, April 21, 2017 11:36 - CONCLUSION: Fluoroscopic images during placement of intramedullary siomara left femur. Benja Ramsey MD Assessment and Plan Assessment and Plan 77-year-old female here after prolonged hospitalization including left MCA CVA, cardiomyopathy, and chronic ventilator dependent respiratory failure. The patient was noted to be bradycardic and we are consulted for recommendations. The patient is nonverbal and unable to contribute to history taking. Her EKG shows AV junctional rhythm with bradycardia rate 43 and we were consulted for recommendation. AV junctional rhythm with bradycardia: Heart rate okay. Avoid AV du blocking agents. Nothing further to add from a cardiac standpoint. Cardiomyopathy/chronic systolic CHF: Seen on echo 10/06/17. Currently appears compensated. Recommend ACEi/ARB if BP allows. CVA/encephalopathy/chronic respiratory failure: Primary team, case management, and palliative care following. We will sign off at this time, please call with any questions. Moise Dong Nov 19, 2017 08:20
[2017-11-19] MEDS: SODIUM CHLORIDE 0.9% FLUSH 10 ML FLUSH IV FLUSH SCH ×2 (08:27→21:00)
[2017-11-19] MEDS: CALCIUM/VITAMIN D 250 MG/125 U TAB PEG SCH ×3 (08:27→18:00)
[2017-11-19] MEDS: LANSOPRAZOLE SOLUTAB 30 MG TAB NG SCH (08:27)
[2017-11-19] MEDS: LACTOBACILLUS ACIDOPHILUS TAB PEG SCH ×2 (08:27→20:59)
[2017-11-19] MEDS: CHOLECALCIFEROL (VIT D3) 5000 UNIT CAP PEG SCH (08:27)
[2017-11-19] MEDS: ASPIRIN 325 MG TAB DOBHOFF SCH (09:00)
[2017-11-19 09:34] LABS: HEMATOCRIT 27.8 % (35.0-46.0); HEMOGLOBIN 9.4 GM/DL (11.6-15.3); MEAN CORPUSCULAR HEMOGLOBIN 33.4 PG (27.0-34.0); MEAN CORPUSCULAR HGB CONC 33.7 % (32.0-36.0); MEAN PLATELET VOLUME 9.4 FL (7.0-11.0); PLATELET COUNT 306 TH/MM3 (150-450); RED BLOOD COUNT 2.81 MIL/MM3 (4.00-5.30); RED CELL DISTRIBUTION WIDTH 16.3 % (11.6-17.2); WHITE BLOOD COUNT 12.2 TH/MM3 (4.0-11.0)
[2017-11-19 10:00] LABS: BICARBONATE 28.2 MEQ/L (21.0-32.0); CALCIUM 9.2 MG/DL (8.5-10.1); CREATININE 0.73 MG/DL (0.50-1.00)
[2017-11-19] MEDS: CHOLESTYRAMINE LIGHT 4 GM PACKAGE PEG PRN (13:13)
--- NOTE | 2017-11-19 20:05 | HHI.PR ---
Subjective Remarks No events overnight. Patient is on TP's with 40% FIO2. . Tolerating tube feeds. Awake, looks around had episode of desaturation No diarrhoea Objective Vital Signs Vital Signs Date Time Temp Pulse Resp B/P (MAP) Pulse Ox O2 Delivery O2 Flow Rate FiO2 11/19/17 16:00 98.6 44 20 144/64 (90) 94 11/19/17 12:00 98.5 42 24 129/53 (78) 100 11/19/17 08:26 98 T-piece 6.00 40 11/19/17 08:00 98.4 45 17 143/56 (85) 98 11/19/17 04:00 98.6 46 18 143/56 (85) 98 11/19/17 00:00 98.6 47 18 117/53 (74) 98 11/18/17 21:49 96 T-piece 40 I/O 11/18/17 11/18/17 11/18/17 11/19/17 11/19/17 11/19/17 07:00 15:00 23:00 07:00 15:00 23:00 Intake Total 1503 ml 1236 ml 1052 ml 980 ml Output Total 250 ml 225 ml 450 ml 450 ml Balance 1253 ml 1011 ml 602 ml 530 ml IV Total 250 ml Tube Feeding 1003 ml 561 ml 652 ml 620 ml Other 500 ml 425 ml 400 ml 360 ml Output Urine Total 250 ml 225 ml 450 ml 450 ml # Bowel Movements 1 2 2 0 Result Diagram: 11/19/1791111/19/17 0912 Objective Remarks GENERAL: Elderly female,NAD SKIN: Warm and dry. HEAD: Normocephalic. EYES: No scleral icterus. No injection or drainage. NECK: Supple, trachea midline. No JVD or lymphadenopathy. + trach CARDIOVASCULAR: Regular rate and rhythm without murmurs, gallops, or rubs. RESPIRATORY: Breath sounds equal bilaterally. No accessory muscle use. GASTROINTESTINAL: Abdomen soft, non-tender, nondistended. MUSCULOSKELETAL: No cyanosis, or edema. BACK: Nontender without obvious deformity. No CVA tenderness. A/P Assessment and Plan Chronic resp failure, ,S/P Trach CVA Pneumonia Calcified Granuloma LLL Pseudomonas Tracheobronchitis, PLAN: Continue with TP's, keep sats >92% Bronchodilators, Pulm toilet, trach care CT chest 11/01: No PE,adenopathy in the right paratracheal, subcarinal and hilar regions with numerous prominent lymph nodes seen. Continue with abx ( Augmentin)monitor for signs of infections ( fever, WBC) follow up on urine cx Continue with tube feeds- Glucerna 1.5 @ 45ml/hr GI/DVT prophylaxis Continue treatment plan. LAI RN at [facility] MD Nov 19, 2017 20:05
--- NOTE | 2017-11-19 20:47 | EKG ---
Date Performed: 11/18/2017 Time Performed: 15:42:32 PTAGE: 77 years EKG: SUPRAVENTRICULAR BRADYCARDIA ANTERIOR MYOCARDIAL INFARCTION , OF INDETERMINATE AGE INFERIOR MYOCARDIAL INFARCTION , OF INDETERMINATE AGE WITH POSTERIOR EXTENSION ABNORMAL ECG PREVIOUS TRACING : 09/21/2017 09.46 Since the previous tracing, no significant change noted DOCTOR: Keron Arshad Interpretating Date/Time 11/19/2017 20:45:37
--- NOTE | 2017-11-19 23:27 | HHI.PR ---
Subjective Remarks Patient seen today around 2 PM. Discussed with nursing. No acute changes. Bradycardia in the 40s. Objective Vital Signs Date Time Temp Pulse Resp B/P (MAP) Pulse Ox O2 Delivery O2 Flow Rate FiO2 11/19/17 20:50 99 T-piece 40 11/19/17 20:00 98.3 88 18 150/66 (94) 94 11/19/17 16:00 98.6 44 20 144/64 (90) 94 11/19/17 12:00 98.5 42 24 129/53 (78) 100 11/19/17 08:26 98 T-piece 6.00 40 11/19/17 08:00 98.4 45 17 143/56 (85) 98 11/19/17 04:00 98.6 46 18 143/56 (85) 98 11/19/17 00:00 98.6 47 18 117/53 (74) 98 I/O 11/19/17 11/19/17 11/19/17 11/20/17 11/20/17 11/20/17 07:00 15:00 23:00 07:00 15:00 23:00 Intake Total 1052 ml 980 ml Output Total 450 ml 450 ml Balance 602 ml 530 ml Tube Feeding 652 ml 620 ml Other 400 ml 360 ml Output Urine Total 450 ml 450 ml # Bowel Movements 2 0 Result Diagram: 11/19/1712 11/19/17 09 Procedures Tracheostomy 05/15/17 PEG 05/16/17 Objective Remarks GENERAL: patient sitting up in chair. Appears comfortable. Nonverbal. Noninteractive SKIN: Warm and dry. HEAD: Normocephalic. EYES: No scleral icterus. No injection or drainage. NECK: Supple, trachea midline. No JVD. CARDIOVASCULAR: Regular rate and rhythm without murmurs, gallops, or rubs. RESPIRATORY: Breath sounds equal bilaterally. No accessory muscle use. GASTROINTESTINAL: Abdomen soft, non-tender, nondistended. PEG tubewithout any leakage or surrounding erythema. MUSCULOSKELETAL: No cyanosis, or edema. BACK: Nontender without obvious deformity. No CVA tenderness. A/P Assessment and Plan 11/19. Hyperkalemia. Potassium 5.2. Improved with IV fluids yesterday. Patient with history of CHF. We'll start Lasix, increase free water flushes slightly. Continue to monitor. 77-year-old female who presented with DKA and hip fracture on 04/20/17. She underwent ORIF on 04/21/17 and on 04/24 a stroke alert was called as she was found to have right hemiparesis with left gaze. She has a poor prognosis based on her lack of overall recovery over the last 6+ months. Bradycardia -New onset -Check EKG, appears junctional 43HR. Compared to previous EKG it appears to be almost the same however, lower HR is concerning. -Check labs -Hold medications that can affect heart rate including Reglan, bp meds -BP within normal but will give 250ML bolus. Albuterol. Monitor for trach plugging. -Will consult cardiology for further evaluation and recommendation Hypertension / CHF Amlodipine 10 mg po daily, Doxazosin 1 mg peg daily, hydralazine 10 mg per per peg q8 hours. -Hold for now secondary to bradycardia Clonidine 0.1 mg q6h prn -hold Echo 10/06/17 LVSF EF = 25-30%. Patient should be started on MARIA/ARB for EF of 25-30%, also need to start a low-dose beta-selena. Will hold off restarting medications for now unless patient is bradycardic. Will consult cardiology as above. 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 Was not a candidate for thrombolysis at that time. -Increasing edema seen on repeat CT 04/28 with a reduction in midline shift on another repeat on 04/30 -Neurologic condition remained poor and she underwent trach 05/15/17 and PEG -Persistent right-sided hemiparesis. -Previously seen by neurology, signed off -Previously seen by neurosurgery, signed off -Continue daily ASA -PT UTI Urinary retention Urine culture grew Aerococcus. Completed course of Augmentin. Leavitt in place draining yellow urine Chronic Tracheostomy /respiratory failure 10/22/2017 -Pulmonary toilet, trach care -Duo nebs as needed -Pulm following, appreciate assistance -Chest x-ray 11/13/17 showed pulmonary edema continue on Lasix Large left pneumothorax -Chest tube placed 05/07, discontinued 05/12/17 -Resolved Hepatitis C -LFTs normalized -Negative genotype/viral load Diabetes mellitus -SSI Novolin R High-dose scale -Levemir insulin 8u Q12 -Monitor Accu-Cheks Tube Feeds, PEG Loose Stools -patient has been checked for Cdiff on multiple occasions, most recently 3/6 Cdiff negative -already on lactinex bid -Questran bid and monitor for improvement, consider increasing dose as needed -This is possibly related to tube feedings. Will ask dietary to consider tube feeds at night only. Anal Fissure continue wound care DVT prophylaxis heparin Kings Seaman MD Nov 19, 2017 23:27
[2017-11-20] VITALS (8 sets, daily range): BP systolic 128–158; BP diastolic 60–73; PULSE 82–90; RESP 18–24; TEMP 97.6–98.4; O2SAT 93–100
[2017-11-20] MEDS: INSULIN DETEMIR 100 UNITS/ML VIAL SQ SCH ×2 (01:12→11:57)
[2017-11-20] MEDS: INSULIN NovoLIN REGULAR SUPPLEMENTAL SCALE SQ SCH ×4 (01:13→17:11)
[2017-11-20] MEDS: hydrALAZINE HCL 10 MG TAB PEG SCH ×3 (05:48→21:45)
[2017-11-20] MEDS: HEPARIN SODIUM - SQ 10,000 UNITS/ML VIAL SQ SCH ×3 (05:48→21:45)
[2017-11-20] MEDS: ARTIFICIAL TEARS OPTH SOLN 15 ML BTL EACH EYE SCH ×3 (05:49→21:47)
[2017-11-20] MEDS: LANSOPRAZOLE SOLUTAB 30 MG TAB NG SCH (09:20)
[2017-11-20] MEDS: CHOLECALCIFEROL (VIT D3) 5000 UNIT CAP PEG SCH (09:20)
[2017-11-20] MEDS: LACTOBACILLUS ACIDOPHILUS TAB PEG SCH ×2 (09:20→21:45)
[2017-11-20] MEDS: CALCIUM/VITAMIN D 250 MG/125 U TAB PEG SCH ×3 (09:20→17:10)
[2017-11-20] MEDS: FUROSEMIDE 20 MG TAB PO SCH (09:21)
[2017-11-20] MEDS: SODIUM CHLORIDE 0.9% FLUSH 10 ML FLUSH IV FLUSH SCH ×2 (09:21→21:46)
[2017-11-20] MEDS: ASPIRIN 325 MG TAB DOBHOFF SCH (09:21)
[2017-11-20 09:23] LABS: AUTOMATED NEUTROPHIL # 6.1 TH/MM3 (1.8-7.7); BASOPHIL # 0.1 TH/MM3 (0-0.2); BASOPHIL % 1.4 % (0.0-2.0); EOSINOPHIL # 0.2 TH/MM3 (0-0.4); EOSINOPHIL % 2.6 % (0.0-4.0); HEMATOCRIT 29.3 % (35.0-46.0); HEMOGLOBIN 9.9 GM/DL (11.6-15.3); LYMPHOCYTE # 1.6 TH/MM3 (1.0-4.8); MEAN CORPUSCULAR HEMOGLOBIN 33.7 PG (27.0-34.0); MEAN CORPUSCULAR HGB CONC 33.7 % (32.0-36.0); MEAN PLATELET VOLUME 10.2 FL (7.0-11.0); MONO % 8.3 % (0.0-8.0); MONOCYTE # 0.7 TH/MM3 (0-0.9); NEUT % 69.7 % (16.0-70.0); PLATELET COUNT 312 TH/MM3 (150-450); RED BLOOD COUNT 2.93 MIL/MM3 (4.00-5.30); RED CELL DISTRIBUTION WIDTH 15.7 % (11.6-17.2); WHITE BLOOD COUNT 8.7 TH/MM3 (4.0-11.0)
[2017-11-20 09:38] LABS: ALBUMIN 2.6 GM/DL (3.4-5.0); BICARBONATE 29.6 MEQ/L (21.0-32.0); CREATININE 0.56 MG/DL (0.50-1.00); MAGNESIUM 1.9 MG/DL (1.5-2.5)
[2017-11-20 10:53] LABS: BANDS 12 % (0-6); LYMPHOCYTES 14 % (9-44); MONOCYTES 9 % (0-8); MYELOCYTES 1 % (0-0); NEUTROPHIL # MANUAL DIFF 6.7 TH/MM3 (1.8-7.7); POLYS (SEG NEUTROPHILS) 64 % (16-70)
--- NOTE | 2017-11-20 16:58 | HHI.PR ---
Subjective Remarks No events overnight. Patient is on TP's with 40% FIO2. . Tolerating tube feeds. Awake, looks around Tolerates TF No fever Objective Vital Signs Vital Signs Date Time Temp Pulse Resp B/P (MAP) Pulse Ox O2 Delivery O2 Flow Rate FiO2 11/20/17 16:00 97.9 82 24 136/69 (91) 93 11/20/17 12:00 98.0 86 24 140/73 (95) 100 11/20/17 08:28 98 T-piece 5.00 28 11/20/17 08:00 98.4 89 22 132/65 (87) 99 11/20/17 07:00 99 Trach Collar 6.00 28 11/20/17 04:00 98.3 90 18 128/64 (85) 96 11/20/17 00:00 98.4 88 18 158/60 (92) 97 11/19/17 20:50 99 T-piece 40 11/19/17 20:00 98.3 88 18 150/66 (94) 94 I/O 11/19/17 11/19/17 11/19/17 11/20/17 11/20/17 11/20/17 07:00 15:00 23:00 07:00 15:00 23:00 Intake Total 1052 ml 980 ml 1671 ml Output Total 450 ml 450 ml 2000 ml Balance 602 ml 530 ml -329 ml Tube Feeding 652 ml 620 ml 1071 ml Other 400 ml 360 ml 600 ml Output Urine Total 450 ml 450 ml 2000 ml # Bowel Movements 2 0 0 Result Diagram: 11/20/17 0815 11/20/17 0815 Objective Remarks GENERAL: Elderly female,NAD SKIN: Warm and dry. HEAD: Normocephalic. EYES: No scleral icterus. No injection or drainage. NECK: Supple, trachea midline. No JVD or lymphadenopathy. + trach CARDIOVASCULAR: Regular rate and rhythm without murmurs, gallops, or rubs. RESPIRATORY: Breath sounds equal bilaterally. No accessory muscle use. GASTROINTESTINAL: Abdomen soft, non-tender, nondistended. MUSCULOSKELETAL: No cyanosis, or edema. BACK: Nontender without obvious deformity. No CVA tenderness. A/P Assessment and Plan Chronic resp failure, ,S/P Trach CVA Pneumonia Calcified Granuloma LLL Pseudomonas Tracheobronchitis, PLAN: Continue with TP's, keep sats >92% Bronchodilators, Pulm toilet, trach care CT chest 11/01: No PE,adenopathy in the right paratracheal, subcarinal and hilar regions with numerous prominent lymph nodes seen. Continue with abx ( Augmentin)monitor for signs of infections ( fever, WBC) follow up on urine cx Continue with tube feeds- Glucerna 1.5 @ 45ml/hr GI/DVT prophylaxis Continue treatment plan. [facility] RN at [facility],Chris Hester MD Nov 20, 2017 16:58
--- NOTE | 2017-11-20 19:23 | HHI.PR ---
Subjective Remarks Patient seen today around 2 PM. Discussed with nursing. No acute changes. Objective Vital Signs Date Time Temp Pulse Resp B/P (MAP) Pulse Ox O2 Delivery O2 Flow Rate FiO2 11/20/17 16:00 97.9 82 24 136/69 (91) 93 11/20/17 12:00 98.0 86 24 140/73 (95) 100 11/20/17 08:28 98 T-piece 5.00 28 11/20/17 08:00 98.4 89 22 132/65 (87) 99 11/20/17 07:00 99 Trach Collar 6.00 28 11/20/17 04:00 98.3 90 18 128/64 (85) 96 11/20/17 00:00 98.4 88 18 158/60 (92) 97 11/19/17 20:50 99 T-piece 40 11/19/17 20:00 98.3 88 18 150/66 (94) 94 I/O 11/19/17 11/19/17 11/19/17 11/20/17 11/20/17 11/20/17 07:00 15:00 23:00 07:00 15:00 23:00 Intake Total 1052 ml 980 ml 1671 ml 672 ml Output Total 450 ml 450 ml 2000 ml 1200 ml Balance 602 ml 530 ml -329 ml -528 ml Tube Feeding 652 ml 620 ml 1071 ml 432 ml Other 400 ml 360 ml 600 ml 240 ml Output Urine Total 450 ml 450 ml 2000 ml 1200 ml # Bowel Movements 2 0 0 1 Result Diagram: 11/20/17 0815 11/20/17 0815 Procedures Tracheostomy 05/15/17 PEG 05/16/17 Objective Remarks GENERAL: patient sitting up in chair. Appears comfortable. Nonverbal. Noninteractive. No changes on exam SKIN: Warm and dry. HEAD: Normocephalic. EYES: No scleral icterus. No injection or drainage. NECK: Supple, trachea midline. No JVD. CARDIOVASCULAR: Regular rate and rhythm without murmurs, gallops, or rubs. RESPIRATORY: Breath sounds equal bilaterally. No accessory muscle use. GASTROINTESTINAL: Abdomen soft, non-tender, nondistended. PEG tubewithout any leakage or surrounding erythema. MUSCULOSKELETAL: No cyanosis, or edema. BACK: Nontender without obvious deformity. No CVA tenderness. A/P Assessment and Plan 11/20. Hyperkalemia resolved 4.0.continue Lasix, increase free water flushes slightly. Continue to monitor. 77-year-old female who presented with DKA and hip fracture on 04/20/17. She underwent ORIF on 04/21/17 and on 04/24 a stroke alert was called as she was found to have right hemiparesis with left gaze. She has a poor prognosis based on her lack of overall recovery over the last 6+ months. Bradycardia -New onset -Check EKG, appears junctional 43HR. Compared to previous EKG it appears to be almost the same however, lower HR is concerning. -Check labs -Hold medications that can affect heart rate including Reglan, bp meds -BP within normal but will give 250ML bolus. Albuterol. Monitor for trach plugging. -Will consult cardiology for further evaluation and recommendation Hypertension / CHF Amlodipine 10 mg po daily, Doxazosin 1 mg peg daily, hydralazine 10 mg per per peg q8 hours. -Hold for now secondary to bradycardia Clonidine 0.1 mg q6h prn -hold Echo 10/06/17 LVSF EF = 25-30%. Patient should be started on MARIA/ARB for EF of 25-30%, also need to start a low-dose beta-selena. Will hold off restarting medications for now unless patient is bradycardic. Will consult cardiology as above. Left MCA stroke -5.5 mm of [id number] subfalcine herniation, diagnosed 04/24. Was not a candidate for thrombolysis at that time. -Increasing edema seen on repeat CT 04/28 with a reduction in midline shift on another repeat on 04/30 -Neurologic condition remained poor and she underwent trach 05/15/17 and PEG -Persistent right-sided hemiparesis. -Previously seen by neurology, signed off -Previously seen by neurosurgery, signed off -Continue daily ASA -PT UTI Urinary retention Urine culture grew Aerococcus. Completed course of Augmentin. Leavitt in place draining yellow urine Chronic Tracheostomy /respiratory failure 10/22/2017 -Pulmonary toilet, trach care -Duo nebs as needed -Pulm following, appreciate assistance -Chest x-ray 11/13/17 showed pulmonary edema continue on Lasix Large left pneumothorax -Chest tube placed 05/07, discontinued 05/12/17 -Resolved Hepatitis C -LFTs normalized -Negative genotype/viral load Diabetes mellitus -SSI Novolin R High-dose scale -Levemir insulin 8u Q12 -Monitor Accu-Cheks Tube Feeds, PEG Loose Stools -patient has been checked for Cdiff on multiple occasions, most recently 11/04 Cdiff negative -already on lactinex bid -Questran bid and monitor for improvement, consider increasing dose as needed -This is possibly related to tube feedings. Will ask dietary to consider tube feeds at night only. Anal Fissure continue wound care DVT prophylaxis heparin Discharge Planning await appropriate discharge plan Kings Seaman MD Nov 20, 2017 19:23
[2017-11-21] VITALS (7 sets, daily range): BP systolic 89–136; BP diastolic 54–68; PULSE 72–94; RESP 18–26; TEMP 96.8–99.1; O2SAT 94–99
[2017-11-21] MEDS: INSULIN NovoLIN REGULAR SUPPLEMENTAL SCALE SQ SCH ×3 (00:30→17:35)
[2017-11-21] MEDS: INSULIN DETEMIR 100 UNITS/ML VIAL SQ SCH ×2 (01:16→12:49)
[2017-11-21] MEDS: ARTIFICIAL TEARS OPTH SOLN 15 ML BTL EACH EYE SCH ×3 (05:16→21:38)
[2017-11-21] MEDS: hydrALAZINE HCL 10 MG TAB PEG SCH ×3 (05:16→21:37)
[2017-11-21] MEDS: HEPARIN SODIUM - SQ 10,000 UNITS/ML VIAL SQ SCH ×3 (05:16→21:37)
[2017-11-21] MEDS: ASPIRIN 325 MG TAB DOBHOFF SCH (08:59)
[2017-11-21] MEDS: LANSOPRAZOLE SOLUTAB 30 MG TAB NG SCH (08:59)
[2017-11-21] MEDS: CHOLECALCIFEROL (VIT D3) 5000 UNIT CAP PEG SCH (09:00)
[2017-11-21] MEDS: SODIUM CHLORIDE 0.9% FLUSH 10 ML FLUSH IV FLUSH SCH (09:00)
[2017-11-21] MEDS: LACTOBACILLUS ACIDOPHILUS TAB PEG SCH ×2 (09:00→21:38)
[2017-11-21] MEDS: FUROSEMIDE 20 MG TAB PO SCH (09:00)
[2017-11-21] MEDS: CALCIUM/VITAMIN D 250 MG/125 U TAB PEG SCH ×3 (09:00→17:55)
--- NOTE | 2017-11-21 18:29 | HHI.PR ---
Subjective Remarks No events overnight. Patient is on TP's with 40% FIO2. . Tolerating tube feeds. Awake, looks around Tolerates TF No fever Fi02 increased to 35% Was up in chair for 5 hrs Objective Vital Signs Vital Signs Date Time Temp Pulse Resp B/P (MAP) Pulse Ox O2 Delivery O2 Flow Rate FiO2 11/21/17 16:00 99.1 72 26 130/56 (80) 94 11/21/17 08:09 96 T-piece 28 11/21/17 08:00 96.8 81 24 131/66 (87) 94 11/21/17 07:00 94 Trach Collar 6.00 28 11/21/17 04:00 97.7 80 20 121/54 (76) 99 11/21/17 00:00 98.9 94 22 89/64 (72) 99 11/20/17 20:35 95 T-piece 28 11/20/17 20:00 97.6 82 22 130/68 (88) 99 11/20/17 20:00 99 Trach Collar 6.00 28 I/O 11/20/17 11/20/17 11/20/17 11/21/17 11/21/17 11/21/17 07:00 15:00 23:00 07:00 15:00 23:00 Intake Total 1671 ml 672 ml 765 ml 954 ml Output Total 2000 ml 1200 ml 650 ml 900 ml Balance -329 ml -528 ml 115 ml 54 ml Tube Feeding 1071 ml 432 ml 325 ml 474 ml Other 600 ml 240 ml 440 ml 480 ml Output Urine Total 2000 ml 1200 ml 650 ml 900 ml # Bowel Movements 0 1 1 2 Result Diagram: 11/20/1781411/20/17814 Objective Remarks GENERAL: Elderly female,NAD SKIN: Warm and dry. HEAD: Normocephalic. EYES: No scleral icterus. No injection or drainage. NECK: Supple, trachea midline. No JVD or lymphadenopathy. + trach CARDIOVASCULAR: Regular rate and rhythm without murmurs, gallops, or rubs. RESPIRATORY: Breath sounds equal bilaterally. No accessory muscle use. GASTROINTESTINAL: Abdomen soft, non-tender, nondistended. MUSCULOSKELETAL: No cyanosis, or edema. BACK: Nontender without obvious deformity. No CVA tenderness. A/P Assessment and Plan Chronic resp failure, ,S/P Trach CVA Pneumonia Calcified Granuloma LLL Pseudomonas Tracheobronchitis, PLAN: Continue with TP's, keep sats >92% Bronchodilators, Pulm toilet, trach care CT chest 11/01: No PE,adenopathy in the right paratracheal, subcarinal and hilar regions with numerous prominent lymph nodes seen. Continue with abx ( Augmentin)monitor for signs of infections ( fever, WBC) follow up on urine cx Continue with tube feeds- Glucerna 1.5 @ 45ml/hr GI/DVT prophylaxis Continue treatment plan. [facility] RN at [facility],Chris Hester MD Nov 21, 2017 18:29
--- NOTE | 2017-11-21 19:35 | HHI.PR ---
Subjective Remarks Patient seen this afternoon around 1 PM. No acute changes per nursing. Objective Vital Signs Date Time Temp Pulse Resp B/P (MAP) Pulse Ox O2 Delivery O2 Flow Rate FiO2 11/21/17 16:00 99.1 72 26 130/56 (80) 94 11/21/17 08:09 96 T-piece 28 11/21/17 08:00 96.8 81 24 131/66 (87) 94 11/21/17 07:00 94 Trach Collar 6.00 28 11/21/17 04:00 97.7 80 20 121/54 (76) 99 11/21/17 00:00 98.9 94 22 89/64 (72) 99 11/20/17 20:35 95 T-piece 28 11/20/17 20:00 97.6 82 22 130/68 (88) 99 11/20/17 20:00 99 Trach Collar 6.00 28 I/O 11/20/17 11/20/17 11/20/17 11/21/17 11/21/17 11/21/17 07:00 15:00 23:00 07:00 15:00 23:00 Intake Total 1671 ml 672 ml 765 ml 954 ml Output Total 2000 ml 1200 ml 650 ml 900 ml Balance -329 ml -528 ml 115 ml 54 ml Tube Feeding 1071 ml 432 ml 325 ml 474 ml Other 600 ml 240 ml 440 ml 480 ml Output Urine Total 2000 ml 1200 ml 650 ml 900 ml # Bowel Movements 0 1 1 2 Result Diagram: 11/20/17 0815 11/20/17 0815 Procedures Tracheostomy 05/15/17 PEG 05/16/17 Objective Remarks GENERAL: patient sitting up in chair. Appears comfortable. Nonverbal. Noninteractive. No changes on exam SKIN: Warm and dry. bilateral first medial MCP ulcers. Slight surrounding erythema no pus. HEAD: Normocephalic. EYES: No scleral icterus. No injection or drainage. NECK: Supple, trachea midline. No JVD. CARDIOVASCULAR: Regular rate and rhythm without murmurs, gallops, or rubs. RESPIRATORY: Breath sounds equal bilaterally. No accessory muscle use. GASTROINTESTINAL: Abdomen soft, non-tender, nondistended. PEG tubewithout any leakage or surrounding erythema. MUSCULOSKELETAL: No cyanosis, or edema. BACK: Nontender without obvious deformity. No CVA tenderness. A/P Assessment and Plan 11/21. BL hallux ulcers Review discussed with nursing, who feels that bilateral first MCP ulcers appeared slightly inflamed. Recommend elevation. Initially thought perhaps starting antibiotics, however due to antibiotic resistance profile we'll await wound care recommendations. Already with mcdonald-resistant Pseudomonas/ 11/20. Hyperkalemia resolved 4.0.continue Lasix, increase free water flushes slightly. Continue to monitor. 77-year-old female who presented with DKA and hip fracture on 04/20/17. She underwent ORIF on 04/21/17 and on 04/24 a stroke alert was called as she was found to have right hemiparesis with left gaze. She has a poor prognosis based on her lack of overall recovery over the last 6+ months. Bradycardia -New onset -Check EKG, appears junctional 43HR. Compared to previous EKG it appears to be almost the same however, lower HR is concerning. -Check labs -Hold medications that can affect heart rate including Reglan, bp meds -BP within normal but will give 250ML bolus. Albuterol. Monitor for trach plugging. -Will consult cardiology for further evaluation and recommendation Hypertension / CHF Amlodipine 10 mg po daily, Doxazosin 1 mg peg daily, hydralazine 10 mg per per peg q8 hours. -Hold for now secondary to bradycardia Clonidine 0.1 mg q6h prn -hold Echo 10/06/17 LVSF EF = 25-30%. Patient should be started on MARIA/ARB for EF of 25-30%, also need to start a low-dose beta-selena. Will hold off restarting medications for now unless patient is bradycardic. Will consult cardiology as above. Left MCA stroke -5.5 mm of [id number] subfalcine herniation, diagnosed 04/24. Was not a candidate for thrombolysis at that time. -Increasing edema seen on repeat CT 04/28 with a reduction in midline shift on another repeat on 04/30 -Neurologic condition remained poor and she underwent trach 05/15/17 and PEG -Persistent right-sided hemiparesis. -Previously seen by neurology, signed off -Previously seen by neurosurgery, signed off -Continue daily ASA -PT UTI Urinary retention Urine culture grew Aerococcus. Completed course of Augmentin. Leavitt in place draining yellow urine Chronic Tracheostomy /respiratory failure 10/22/2017 -Pulmonary toilet, trach care -Duo nebs as needed -Pulm following, appreciate assistance -Chest x-ray 11/13/17 showed pulmonary edema continue on Lasix Large left pneumothorax -Chest tube placed 05/07, discontinued 05/12/17 -Resolved Hepatitis C -LFTs normalized -Negative genotype/viral load Diabetes mellitus -SSI Novolin R High-dose scale -Levemir insulin 8u Q12 -Monitor Accu-Cheks Tube Feeds, PEG Loose Stools -patient has been checked for Cdiff on multiple occasions, most recently 11/04 Cdiff negative -already on lactinex bid -Questran bid and monitor for improvement, consider increasing dose as needed -This is possibly related to tube feedings. Will ask dietary to consider tube feeds at night only. Anal Fissure continue wound care DVT prophylaxis heparin Discharge Planning await appropriate discharge plan Kings Seaman MD Nov 21, 2017 19:34
[2017-11-21 21:45] LABS: ALBUMIN 2.7 GM/DL (3.4-5.0); BICARBONATE 33.1 MEQ/L (21.0-32.0); CALCIUM 9.6 MG/DL (8.5-10.1); CREATININE 0.5 MG/DL (0.50-1.00); PHOSPHORUS 2.9 MG/DL (2.5-4.9)
[2017-11-22] VITALS (9 sets, daily range): BP systolic 131–171; BP diastolic 70–84; PULSE 32–84; RESP 12–20; TEMP 97.9–98.9; O2SAT 94–99
[2017-11-22] MEDS: INSULIN DETEMIR 100 UNITS/ML VIAL SQ SCH ×3 (00:45→23:26)
[2017-11-22] MEDS: HEPARIN SODIUM - SQ 10,000 UNITS/ML VIAL SQ SCH ×3 (06:14→20:59)
[2017-11-22] MEDS: hydrALAZINE HCL 10 MG TAB PEG SCH ×3 (06:14→20:58)
[2017-11-22] MEDS: ARTIFICIAL TEARS OPTH SOLN 15 ML BTL EACH EYE SCH ×3 (06:15→20:59)
[2017-11-22] MEDS: INSULIN NovoLIN REGULAR SUPPLEMENTAL SCALE SQ SCH ×4 (06:20→23:26)
[2017-11-22] MEDS: CHOLECALCIFEROL (VIT D3) 5000 UNIT CAP PEG SCH (08:59)
[2017-11-22] MEDS: FUROSEMIDE 20 MG TAB PO SCH (08:59)
[2017-11-22] MEDS: CALCIUM/VITAMIN D 250 MG/125 U TAB PEG SCH ×3 (08:59→17:54)
[2017-11-22] MEDS: LACTOBACILLUS ACIDOPHILUS TAB PEG SCH ×2 (08:59→20:59)
[2017-11-22] MEDS: ASPIRIN 325 MG TAB DOBHOFF SCH (08:59)
[2017-11-22] MEDS: LANSOPRAZOLE SOLUTAB 30 MG TAB NG SCH (08:59)
--- NOTE | 2017-11-22 09:56 | HHI.PR ---
Subjective Remarks Follow-up on patient with left MCA stroke, bradycardia. Patient seen and examined. Discussed with nursing staff. Patient continues to have heart rates dropping into the 30s and 40s. Objective Vitals Vital Signs Date Time Temp Pulse Resp B/P (MAP) Pulse Ox O2 Delivery O2 Flow Rate FiO2 11/22/17 09:19 96 T-piece 5.00 28 11/22/17 08:00 98.9 65 20 156/70 (98) 97 11/22/17 07:30 32 16 154/77 (102) 94 11/22/17 07:00 98 Trach Collar 6.00 28 11/22/17 04:00 98.8 74 20 165/76 (105) 97 11/22/17 00:00 98.4 78 20 171/76 (107) 99 11/21/17 21:34 98 T-piece 6.00 28 11/21/17 20:00 97.8 87 18 136/68 (90) 97 11/21/17 20:00 98 Trach Collar 6.00 28 11/21/17 16:00 99.1 72 26 130/56 (80) 94 I/O 11/21/17 11/21/17 11/21/17 11/22/17 11/22/17 11/22/17 07:00 15:00 23:00 07:00 15:00 23:00 Intake Total 765 ml 954 ml 1058 ml Output Total 650 ml 900 ml 800 ml Balance 115 ml 54 ml 258 ml Tube Feeding 325 ml 474 ml 478 ml Other 440 ml 480 ml 580 ml Output Urine Total 650 ml 900 ml 800 ml # Bowel Movements 1 2 2 Result Diagram: 11/20/1781411/21/172037 Imaging Last Impressions Chest X-Ray 11/13/17 0000 Signed Impressions: Service Date/Time: October 15:36 - CONCLUSION: 1. Cardiomegaly with worsening pulmonary edema pattern. 2. Probable trace left pleural effusion. Alejo De La Vega MD Upper Extremity Ultrasound 11/04/17 0000 Signed Impressions: Service Date/Time: Saturday, November 04, 2017 09:57 - CONCLUSION: No thrombus observed. Subcutaneous edema noted. Deangelo Wren Jr., MD Abdomen X-Ray 11/04/17 0000 Signed Impressions: Service Date/Time: Saturday, November 04, 2017 11:58 - CONCLUSION: Gaseous distention of bowel loops could be ileus but unchanged. Benja Ramsey MD CT Angiography 11/01/17 0000 Signed Impressions: Service Date/Time: Wednesday, November 01, 2017 16:47 - CONCLUSION: No evidence for pulmonary embolism. Please see above. Choco Mustafa MD Thoracentesis 08/05/17 1535 Signed Impressions: Service Date/Time: Saturday, August 05, 2017 16:08 - CONCLUSION: Uncomplicated CT-guided thoracentesis. Sage Adler MD Chest Ultrasound 08/02/17 0000 Signed Impressions: Service Date/Time: Tuesday, August 01, 2017 22:06 - CONCLUSION: 1. Moderate right pleural effusion, as above. Alejo De La Vega MD Hip and Pelvis X-Ray 07/09/17 0000 Signed Impressions: Service Date/Time: Sunday, July 09, 2017 14:04 - CONCLUSION: Anatomic alignment. Ricardo Middleton MD FACR Liver Ultrasound 06/19/17 0000 Signed Impressions: Service Date/Time: June 13:20 - CONCLUSION: 1. Mildly increased echotexture of the liver characteristic of hepatic steatosis. 2. Gallbladder sludge. Obdulio Sam MD Head CT 05/15/17 0000 Signed Impressions: Service Date/Time: May 19:59 - CONCLUSION: 1. 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 2. No bleed or new/acute infarct. Obdulio Simms MD Gall Bladder Ultrasound 05/08/17 0000 Signed Impressions: Service Date/Time: May 08:23 - CONCLUSION: Focally unremarkable appearance of the gallbladder Obdulio Chun MD Abdomen/Pelvis CT 05/07/17 0000 Signed Impressions: Service Date/Time: Sunday, May 07, 2017 13:23 - CONCLUSION: 1. Large left pneumothorax. 2. Bilateral lower lobe consolidation and bilateral moderate size pleural effusions. 3. Significant soft tissue thickening of the right lateral chest wall and left gluteus muscle. 4. Mild ascites. The findings were called to Dr. Carney. Deangelo Zamora MD Chest CT 04/30/17 0000 Signed Impressions: Service Date/Time: Sunday, April 30, 2017 09:20 - CONCLUSION: 1. Bilateral pulmonary infiltrates more pronounced within the lower lobes with tiny bilateral pleural effusions. Material seen filling the lower lobe bronchi bilaterally either related to purulent material or perhaps mucus plugging. Deangelo Wren Jr., MD Carotid Artery Ultrasound 04/24/17 0000 Signed Impressions: Service Date/Time: April 09:45 - CONCLUSION: 1. No hemodynamically significant carotid artery stenosis. Arnie Middleton MD Hip X-Ray 04/21/17 0000 Signed Impressions: Service Date/Time: Friday, April 21, 2017 11:36 - CONCLUSION: Fluoroscopic images during placement of intramedullary siomara left femur. Benja Ramsey MD Objective Remarks GENERAL: Elderly female patient in NAD. Appears comfortable. Nonverbal. Noninteractive. SKIN: Warm and dry. Bilateral first medial MCP ulcers. HEAD: Normocephalic. EYES: No scleral icterus. No injection or drainage. ENT: No nasal bleeding or discharge. Mucous membranes pink and moist. NECK: Trachea midline. CARDIOVASCULAR: Regular rate and rhythm. S1, S2 noted. No murmur appreciated. RESPIRATORY: No accessory muscle use. Breath sounds equal bilaterally. GASTROINTESTINAL: Abdomen soft, non-tender, nondistended. Normoactive bowel sounds x4. PEG tube site C/D/I. MUSCULOSKELETAL: Extremities without clubbing, cyanosis, or edema. NEUROLOGICAL: Nonverbal. Does not follow commands. Procedures PEG tube Medications and IVs Current Medications Medications (Trade) Dose Ordered Sig/Zeferino Route Start Time Stop Time Status Last Admin (Narcan Inj) 0.4 mg UNSCH PRN IV 04/20/17 17:15 (Aspirin) 325 mg DAILY DOBHOFF 04/27/17 09:00 11/22/17 08:59 (Prevacid Odt) 30 mg DAILY NG 05/08/17 09:00 11/22/17 08:59 (Tears Naturale Opth Soln) 1 drop Q8HR EACH EYE 06/12/17 07:15 11/22/17 06:15 (Nitroglycerin 2% Oint) 2 inch Q6H PRN TOPICAL 06/21/17 08:00 06/30/17 14:37 (Heparin Inj) 5,000 units Q8HR SQ 07/15/17 08:00 11/22/17 06:14 (Pill Splitter) 1 ea UNSCH PRN OTHER 09/05/17 11:00 (Apresoline) 10 mg Q8HR PEG 09/24/17 14:00 11/22/17 06:14 (Norvasc) 10 mg DAILY PEG 10/04/17 09:00 11/22/17 08:59 (Oscal-D 250-125) 250 mg TID PEG 10/03/17 13:00 11/22/17 08:59 (Vitamin D3) 5,000 units DAILY PEG 10/04/17 09:00 11/22/17 08:59 (Catapres) 0.1 mg Q6H PRN PEG 10/03/17 12:30 10/08/17 09:03 (Cardura) 1 mg DAILY PEG 10/04/17 09:00 Future Hold 11/18/17 09:04 (Lactinex) 1 tab Q12HR PEG 10/03/17 21:00 11/22/17 08:59 (Miralax) 17 gm DAILY PRN PEG 10/03/17 12:00 (Beneprotein Powder) 1 pack TID PRN G-TUBE 10/03/17 12:00 (Albuterol Neb) 2.5 mg Q2HR NEB PRN NEB 10/03/17 21:45 10/19/17 22:09 (Levemir Inj) 8 units Q12H SQ 10/26/17 12:00 11/22/17 00:45 (Tylenol 650 Mg/ 20 ml Liq) 650 mg Q6H PRN PEG 10/26/17 06:45 (Roxicodone Intensol Liq) 5 mg Q6H PRN PO 10/29/17 11:00 (D50w (Vial) Inj) 50 ml UNSCH PRN IV PUSH 11/04/17 12:30 (Glucagon Inj) 1 mg UNSCH PRN OTHER 11/04/17 12:30 (NovoLIN R SUPPLEMENTAL SCALE) 1 Q6H SQ 11/04/17 12:30 11/22/17 06:20 (Reglan Liq) 10 mg Q8HR PO 11/07/17 14:30 Future Hold 11/18/17 14:08 (Questran Light Pkt) 4 gm BID PRN PEG 11/12/17 13:30 11/19/17 13:13 (Lasix) 20 mg DAILY PO 11/20/17 09:00 11/22/17 08:59 A/P Problem List: (1) Acute ischemic left middle cerebral artery (MCA) stroke ICD Code: I63.512 - Cerebral infarction due to unspecified occlusion or stenosis of left middle cerebral artery Status: Acute (2) Acute respiratory failure ICD Code: J96.00 - Acute respiratory failure, unspecified whether with hypoxia or hypercapnia (3) Right hemiplegia ICD Code: G81.91 - Hemiplegia, unspecified affecting right dominant side Status: Acute (4) Sacral decubitus ulcer ICD Code: L89.159 - Pressure ulcer of sacral region, unspecified stage Status: Chronic (5) HCAP (healthcare-associated pneumonia) ICD Code: J18.9 - Pneumonia, unspecified organism Status: Resolved (6) 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 She underwent ORIF on 04/21/17 and on 04/24 a stroke alert was called as she was found to have right hemiparesis with left gaze. She has a poor prognosis based on her lack of overall recovery over the last 6+ months. Bilateral hallux ulcers -Wound care following -Monitor Bradycardia -New onset -Check EKG, appears junctional 43HR. Compared to previous EKG it appears to be almost the same however, lower HR is concerning. -Cardiology consulted, avoid AV du blocking agents, no further intervention per cardiology, signed off -Hold medications that can affect heart rate including Reglan, bp meds. D/C Herbre. -Monitor for trach plugging. Hypertension / CHF, compensated Amlodipine 10 mg po daily,hydralazine 10 mg per per peg q8 hours. D/C Herber. Start Lisinopril 5mg per peg daily. Monitor and adjust antihypertensive management as indicated. Clonidine 0.1 mg q6h prn - hold Echo 10/06/17 LVSF EF = 25-30%. Patient should be started on MARIA/ARB for EF of 25-30%, also need to start a low-dose beta-selena. Left MCA stroke -5.5 mm of [id number] subfalcine herniation, diagnosed 04/24. Was not a candidate for thrombolysis at that time. -Increasing edema seen on repeat CT 04/28 with a reduction in midline shift on another repeat on 04/30 -Neurologic condition remained poor and she underwent trach 05/15/17 and PEG -Persistent right-sided hemiparesis. -Previously seen by neurology, signed off -Previously seen by neurosurgery, signed off -Continue daily ASA -PT UTI Urinary retention Urine culture grew Aerococcus. Completed course of Augmentin. Leavitt in place draining yellow urine Chronic Tracheostomy /respiratory failure 10/22/2017 -Pulmonary toilet, trach care -Duo nebs as needed -Pulm following, appreciate assistance -Chest x-ray 11/13/17 showed pulmonary edema continue on Lasix Large left pneumothorax -Chest tube placed 05/07, discontinued 05/12/17 -Resolved Hepatitis C -LFTs normalized -Negative genotype/viral load Diabetes mellitus -SSI Novolin R High-dose scale -Levemir insulin 8u Q12 -Monitor Accu-Cheks Tube Feeds, PEG Loose Stools -patient has been checked for Cdiff on multiple occasions, most recently 11/04 Cdiff negative -already on lactinex bid -Questran bid and monitor for improvement, consider increasing dose as needed -This is possibly related to tube feedings. Will ask dietary to consider tube feeds at night only. Anal Fissure continue wound care DVT prophylaxis heparin Discussed with nursing staff, Dr. Crook Problem Qualifiers (1) Acute respiratory failure: Qualified Codes: J96.00 - Acute respiratory failure, unspecified whether with hypoxia or hypercapnia (2) Sacral decubitus ulcer: Qualified Codes: L89.152 - Pressure ulcer of sacral region, stage 2 (3) Chronic respiratory failure: Qualified Codes: J96.11 - Chronic respiratory failure with hypoxia Josee Grayson Nov 22, 2017 09:56
[2017-11-22 12:53] LABS: AUTOMATED NEUTROPHIL # 4.8 TH/MM3 (1.8-7.7); BASOPHIL # 0.1 TH/MM3 (0-0.2); BASOPHIL % 1.2 % (0.0-2.0); EOSINOPHIL # 0.2 TH/MM3 (0-0.4); HEMATOCRIT 29.9 % (35.0-46.0); HEMOGLOBIN 10.3 GM/DL (11.6-15.3); LYMPH % 28.4 % (9.0-44.0); LYMPHOCYTE # 2.2 TH/MM3 (1.0-4.8); MEAN CELL VOLUME 100.5 FL (80.0-100.0); MEAN CORPUSCULAR HEMOGLOBIN 34.5 PG (27.0-34.0); MEAN CORPUSCULAR HGB CONC 34.3 % (32.0-36.0); MONO % 6.5 % (0.0-8.0); MONOCYTE # 0.5 TH/MM3 (0-0.9); NEUT % 60.9 % (16.0-70.0); PLATELET COUNT 349 TH/MM3 (150-450); RED BLOOD COUNT 2.98 MIL/MM3 (4.00-5.30); RED CELL DISTRIBUTION WIDTH 15.8 % (11.6-17.2); WHITE BLOOD COUNT 7.8 TH/MM3 (4.0-11.0)
[2017-11-22 13:18] LABS: ALBUMIN 2.5 GM/DL (3.4-5.0); BICARBONATE 30.4 MEQ/L (21.0-32.0); CREATININE 0.46 MG/DL (0.50-1.00)
[2017-11-22 13:20] LABS: PHOSPHORUS 3.3 MG/DL (2.5-4.9)
--- NOTE | 2017-11-22 15:14 | HHI.PR ---
Subjective Remarks No events overnight. Patient is on TP's with 40% FIO2. . Tolerating tube feeds. Awake, looks around Tolerates TF No fever Had episode of bradycardia HR 69 now Objective Vital Signs Vital Signs Date Time Temp Pulse Resp B/P (MAP) Pulse Ox O2 Delivery O2 Flow Rate FiO2 11/22/17 12:00 97.9 66 12 131/73 (92) 11/22/17 09:19 96 T-piece 5.00 28 11/22/17 08:00 98.9 65 20 156/70 (98) 97 11/22/17 07:30 32 16 154/77 (102) 94 11/22/17 07:00 98 Trach Collar 6.00 28 11/22/17 04:00 98.8 74 20 165/76 (105) 97 11/22/17 00:00 98.4 78 20 171/76 (107) 99 11/21/17 21:34 98 T-piece 6.00 28 11/21/17 20:00 97.8 87 18 136/68 (90) 97 11/21/17 20:00 98 Trach Collar 6.00 28 11/21/17 16:00 99.1 72 26 130/56 (80) 94 I/O 11/21/17 11/21/17 11/21/17 11/22/17 11/22/17 11/22/17 07:00 15:00 23:00 07:00 15:00 23:00 Intake Total 765 ml 954 ml 1058 ml Output Total 650 ml 900 ml 800 ml Balance 115 ml 54 ml 258 ml Tube Feeding 325 ml 474 ml 478 ml Other 440 ml 480 ml 580 ml Output Urine Total 650 ml 900 ml 800 ml # Bowel Movements 1 2 2 Result Diagram: 11/22/17 1154 11/22/17 1154 Objective Remarks GENERAL: Elderly female,NAD SKIN: Warm and dry. HEAD: Normocephalic. EYES: No scleral icterus. No injection or drainage. NECK: Supple, trachea midline. No JVD or lymphadenopathy. + trach CARDIOVASCULAR: Regular rate and rhythm without murmurs, gallops, or rubs. RESPIRATORY: Breath sounds equal bilaterally. No accessory muscle use. GASTROINTESTINAL: Abdomen soft, non-tender, nondistended. MUSCULOSKELETAL: No cyanosis, or edema. BACK: Nontender without obvious deformity. No CVA tenderness. A/P Assessment and Plan Chronic resp failure, ,S/P Trach CVA Pneumonia Calcified Granuloma LLL Pseudomonas Tracheobronchitis, PLAN: Continue with TP's, keep sats >92% Bronchodilators, Pulm toilet, trach care CT chest 11/01: No PE,adenopathy in the right paratracheal, subcarinal and hilar regions with numerous prominent lymph nodes seen. Continue with abx ( Augmentin)monitor for signs of infections ( fever, WBC) follow up on urine cx Continue with tube feeds- Glucerna 1.5 @ 45ml/hr GI/DVT prophylaxis Continue treatment plan. [facility] RN at Available prn over weekend. Chris Rizo MD Nov 22, 2017 15:14
[2017-11-22] MEDS ORDERED: LISINOPRIL 5 MG TAB PEG ONE (17:45)
[2017-11-23] VITALS (8 sets, daily range): BP systolic 112–141; BP diastolic 55–71; PULSE 64–76; RESP 16–20; TEMP 98.1–98.8; O2SAT 95–99
[2017-11-23] MEDS: HEPARIN SODIUM - SQ 10,000 UNITS/ML VIAL SQ SCH ×3 (05:05→22:07)
[2017-11-23] MEDS: hydrALAZINE HCL 10 MG TAB PEG SCH ×3 (05:05→22:07)
[2017-11-23] MEDS: ARTIFICIAL TEARS OPTH SOLN 15 ML BTL EACH EYE SCH ×3 (05:05→22:00)
[2017-11-23] MEDS: INSULIN NovoLIN REGULAR SUPPLEMENTAL SCALE SQ SCH ×3 (06:20→17:36)
[2017-11-23] MEDS: ASPIRIN 325 MG TAB DOBHOFF SCH (08:35)
[2017-11-23] MEDS: LANSOPRAZOLE SOLUTAB 30 MG TAB NG SCH (08:35)
[2017-11-23] MEDS: LACTOBACILLUS ACIDOPHILUS TAB PEG SCH ×2 (08:35→22:07)
[2017-11-23] MEDS: CALCIUM/VITAMIN D 250 MG/125 U TAB PEG SCH ×3 (08:35→17:36)
[2017-11-23] MEDS: CHOLECALCIFEROL (VIT D3) 5000 UNIT CAP PEG SCH (08:35)
[2017-11-23] MEDS: FUROSEMIDE 20 MG TAB PO SCH (08:35)
[2017-11-23] MEDS: LISINOPRIL 5 MG TAB PEG SCH (08:36)
--- NOTE | 2017-11-23 09:34 | HHI.PR ---
Subjective Remarks Patient seen and examined this morning. Temperature 98.6, pulse ranging between 30s-70s, respiratory rate 20, blood pressure 117/55, pulse ox 99 on trach collar with O2 flow rate at 6 L and FiO2 of 28. She has been previously evaluated for bradycardia. Cardiology will be doing nothing for her at this time. Avoid beta blockers at this time. We will continue to monitor. Patient was discussed with the nurse. Objective Vitals Vital Signs Date Time Temp Pulse Resp B/P (MAP) Pulse Ox O2 Delivery O2 Flow Rate FiO2 11/23/17 08:00 98.6 68 20 117/55 (75) 99 11/23/17 07:20 98 Trach Collar 6.00 28 11/23/17 04:00 98.2 75 16 135/63 (87) 95 11/23/17 00:00 98.1 76 16 141/71 (94) 97 11/22/17 20:47 98 T-piece 28 11/22/17 20:00 98.0 84 16 147/84 (105) 96 11/22/17 19:00 98 Trach Collar 6.00 28 11/22/17 16:00 98.5 70 14 160/83 (108) 11/22/17 12:00 97.9 66 12 131/73 (92) I/O 11/22/17 11/22/17 11/22/17 11/23/17 11/23/17 11/23/17 07:00 15:00 23:00 07:00 15:00 23:00 Intake Total 1058 ml 1090 ml 900 ml Output Total 800 ml 2200 ml 900 ml Balance 258 ml -1110 ml 0 ml Tube Feeding 478 ml 550 ml 480 ml Other 580 ml 540 ml 420 ml Output Urine Total 800 ml 2200 ml 900 ml # Bowel Movements 2 1 0 Result Diagram: 11/22/17 1154 11/22/17 1154 Imaging Last Impressions Chest X-Ray 11/13/17 0000 Signed Impressions: Service Date/Time: October 15:36 - CONCLUSION: 1. Cardiomegaly with worsening pulmonary edema pattern. 2. Probable trace left pleural effusion. Alejo De La Vega MD Upper Extremity Ultrasound 11/04/17 0000 Signed Impressions: Service Date/Time: Saturday, November 04, 2017 09:57 - CONCLUSION: No thrombus observed. Subcutaneous edema noted. Deangelo Wren Jr., MD Abdomen X-Ray 11/04/17 0000 Signed Impressions: Service Date/Time: Saturday, November 04, 2017 11:58 - CONCLUSION: Gaseous distention of bowel loops could be ileus but unchanged. Benja Ramsey MD CT Angiography 11/01/17 0000 Signed Impressions: Service Date/Time: Wednesday, November 01, 2017 16:47 - CONCLUSION: No evidence for pulmonary embolism. Please see above. Choco Mustafa MD Thoracentesis 08/05/17 1535 Signed Impressions: Service Date/Time: Saturday, August 05, 2017 16:08 - CONCLUSION: Uncomplicated CT-guided thoracentesis. Sage Adler MD Chest Ultrasound 08/02/17 0000 Signed Impressions: Service Date/Time: Tuesday, August 01, 2017 22:06 - CONCLUSION: 1. Moderate right pleural effusion, as above. Alejo De La Vega MD Hip and Pelvis X-Ray 07/09/17 0000 Signed Impressions: Service Date/Time: Sunday, July 09, 2017 14:04 - CONCLUSION: Anatomic alignment. Ricardo Middleton MD FACR Liver Ultrasound 06/19/17 0000 Signed Impressions: Service Date/Time: June 13:20 - CONCLUSION: 1. Mildly increased echotexture of the liver characteristic of hepatic steatosis. 2. Gallbladder sludge. Obdulio Sam MD Head CT 05/15/17 0000 Signed Impressions: Service Date/Time: May 19:59 - CONCLUSION: 1. 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 2. No bleed or new/acute infarct. Obdulio Simms MD Gall Bladder Ultrasound 05/08/17 0000 Signed Impressions: Service Date/Time: May 08:23 - CONCLUSION: Focally unremarkable appearance of the gallbladder Obdulio Chun MD Abdomen/Pelvis CT 05/07/17 0000 Signed Impressions: Service Date/Time: Sunday, May 07, 2017 13:23 - CONCLUSION: 1. Large left pneumothorax. 2. Bilateral lower lobe consolidation and bilateral moderate size pleural effusions. 3. Significant soft tissue thickening of the right lateral chest wall and left gluteus muscle. 4. Mild ascites. The findings were called to Dr. Carney. Deangelo Zamora MD Chest CT 04/30/17 0000 Signed Impressions: Service Date/Time: Sunday, April 30, 2017 09:20 - CONCLUSION: 1. Bilateral pulmonary infiltrates more pronounced within the lower lobes with tiny bilateral pleural effusions. Material seen filling the lower lobe bronchi bilaterally either related to purulent material or perhaps mucus plugging. Deangelo Wren Jr., MD Carotid Artery Ultrasound 04/24/17 0000 Signed Impressions: Service Date/Time: April 09:45 - CONCLUSION: 1. No hemodynamically significant carotid artery stenosis. Arnie Middleton MD Hip X-Ray 04/21/17 0000 Signed Impressions: Service Date/Time: Friday, April 21, 2017 11:36 - CONCLUSION: Fluoroscopic images during placement of intramedullary siomara left femur. Benja Ramsey MD Objective Remarks GENERAL: Elderly female patient in NAD. Appears comfortable. Nonverbal. Noninteractive. SKIN: Warm and dry. Bilateral first medial MCP ulcers. HEAD: Normocephalic. EYES: No scleral icterus. No injection or drainage. ENT: No nasal bleeding or discharge. Mucous membranes pink and moist. NECK: Trachea midline. CARDIOVASCULAR: Regular rate and rhythm. S1, S2 noted. No murmur appreciated. RESPIRATORY: No accessory muscle use. Breath sounds equal bilaterally. GASTROINTESTINAL: Abdomen soft, non-tender, nondistended. Normoactive bowel sounds x4. PEG tube site C/D/I. MUSCULOSKELETAL: Extremities without clubbing, cyanosis, or edema. NEUROLOGICAL: Nonverbal. Does not follow commands. Procedures PEG tube Medications and IVs Current Medications Medications (Trade) Dose Ordered Sig/Zeferino Route Start Time Stop Time Status Last Admin (Narcan Inj) 0.4 mg UNSCH PRN IV 04/20/17 17:15 (Aspirin) 325 mg DAILY DOBHOFF 04/27/17 09:00 11/23/17 08:35 (Prevacid Odt) 30 mg DAILY NG 05/08/17 09:00 11/23/17 08:35 (Tears Naturale Opth Soln) 1 drop Q8HR EACH EYE 06/12/17 07:15 11/23/17 05:05 (Nitroglycerin 2% Oint) 2 inch Q6H PRN TOPICAL 06/21/17 08:00 06/30/17 14:37 (Heparin Inj) 5,000 units Q8HR SQ 07/15/17 08:00 11/23/17 05:05 (Pill Splitter) 1 ea UNSCH PRN OTHER 09/05/17 11:00 (Apresoline) 10 mg Q8HR PEG 09/24/17 14:00 11/23/17 05:05 (Norvasc) 10 mg DAILY PEG 10/04/17 09:00 11/23/17 08:36 (Oscal-D 250-125) 250 mg TID PEG 10/03/17 13:00 11/23/17 08:35 (Vitamin D3) 5,000 units DAILY PEG 10/04/17 09:00 11/23/17 08:35 (Catapres) 0.1 mg Q6H PRN PEG 10/03/17 12:30 10/08/17 09:03 (Lactinex) 1 tab Q12HR PEG 10/03/17 21:00 11/23/17 08:35 (Miralax) 17 gm DAILY PRN PEG 10/03/17 12:00 (Beneprotein Powder) 1 pack TID PRN G-TUBE 10/03/17 12:00 (Albuterol Neb) 2.5 mg Q2HR NEB PRN NEB 10/03/17 21:45 10/19/17 22:09 (Levemir Inj) 8 units Q12H SQ 10/26/17 12:00 11/22/17 23:26 (Tylenol 650 Mg/ 20 ml Liq) 650 mg Q6H PRN PEG 10/26/17 06:45 (Roxicodone Intensol Liq) 5 mg Q6H PRN PO 10/29/17 11:00 (D50w (Vial) Inj) 50 ml UNSCH PRN IV PUSH 11/04/17 12:30 (Glucagon Inj) 1 mg UNSCH PRN OTHER 11/04/17 12:30 (NovoLIN R SUPPLEMENTAL SCALE) 1 Q6H SQ 11/04/17 12:30 11/23/17 06:20 (Reglan Liq) 10 mg Q8HR PO 11/07/17 14:30 Future Hold 11/18/17 14:08 (Questran Light Pkt) 4 gm BID PRN PEG 11/12/17 13:30 11/19/17 13:13 (Lasix) 20 mg DAILY PO 11/20/17 09:00 11/23/17 08:35 (Prinivil) 5 mg DAILY PEG 11/23/17 09:00 A/P Problem List: (1) Acute ischemic left middle cerebral artery (MCA) stroke ICD Code: I63.512 - Cerebral infarction due to unspecified occlusion or stenosis of left middle cerebral artery Status: Acute (2) Acute respiratory failure ICD Code: J96.00 - Acute respiratory failure, unspecified whether with hypoxia or hypercapnia (3) Right hemiplegia ICD Code: G81.91 - Hemiplegia, unspecified affecting right dominant side Status: Acute (4) Sacral decubitus ulcer ICD Code: L89.159 - Pressure ulcer of sacral region, unspecified stage Status: Chronic (5) HCAP (healthcare-associated pneumonia) ICD Code: J18.9 - Pneumonia, unspecified organism Status: Resolved (6) 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 She underwent ORIF on 04/21/17 and on 04/24 a stroke alert was called as she was found to have right hemiparesis with left gaze. She has a poor prognosis based on her lack of overall recovery over the last 6+ months. Bilateral hallux ulcers -Wound care following -Monitor Bradycardia -New onset -Check EKG, appears junctional 43HR. Compared to previous EKG it appears to be almost the same however, lower HR is concerning. -Cardiology consulted, avoid AV du blocking agents, no further intervention per cardiology, signed off -Hold medications that can affect heart rate including Reglan, bp meds. D/C Cardura. -Monitor for trach plugging. Hypertension / CHF, compensated Amlodipine 10 mg po daily,hydralazine 10 mg per per peg q8 hours. D/C Cardura. Start Lisinopril 5mg per peg daily. Monitor and adjust antihypertensive management as indicated. Clonidine 0.1 mg q6h prn - hold Echo 10/06/17 LVSF EF = 25-30%. Patient should be started on MARIA/ARB for EF of 25-30%, also need to start a low-dose beta-selena. Left MCA stroke -5.5 mm of [id number] subfalcine herniation, diagnosed 04/24. Was not a candidate for thrombolysis at that time. -Increasing edema seen on repeat CT 04/28 with a reduction in midline shift on another repeat on 04/30 -Neurologic condition remained poor and she underwent trach 05/15/17 and PEG -Persistent right-sided hemiparesis. -Previously seen by neurology, signed off -Previously seen by neurosurgery, signed off -Continue daily ASA -PT UTI Urinary retention Urine culture grew Aerococcus. Completed course of Augmentin. Leavitt in place draining yellow urine Chronic Tracheostomy /respiratory failure 10/22/2017 -Pulmonary toilet, trach care -Duo nebs as needed -Pulm following, appreciate assistance -Chest x-ray 11/13/17 showed pulmonary edema continue on Lasix Large left pneumothorax -Chest tube placed 05/07, discontinued 05/12/17 -Resolved Hepatitis C -LFTs normalized -Negative genotype/viral load Diabetes mellitus -SSI Novolin R High-dose scale -Levemir insulin 8u Q12 -Monitor Accu-Cheks Tube Feeds, PEG Loose Stools -patient has been checked for Cdiff on multiple occasions, most recently 11/04 Cdiff negative -already on lactinex bid -Questran bid and monitor for improvement, consider increasing dose as needed -This is possibly related to tube feedings. Will ask dietary to consider tube feeds at night only. Anal Fissure continue wound care DVT prophylaxis heparin Problem Qualifiers (1) Acute respiratory failure: Qualified Codes: J96.00 - Acute respiratory failure, unspecified whether with hypoxia or hypercapnia (2) Sacral decubitus ulcer: Qualified Codes: L89.152 - Pressure ulcer of sacral region, stage 2 (3) Chronic respiratory failure: Qualified Codes: J96.11 - Chronic respiratory failure with hypoxia Idris Diaz MD, R3 Nov 23, 2017 09:34
[2017-11-23] MEDS: INSULIN DETEMIR 100 UNITS/ML VIAL SQ SCH ×2 (12:56→23:49)
[2017-11-24] VITALS (8 sets, daily range): BP systolic 137–158; BP diastolic 71–85; PULSE 58–77; RESP 18–24; TEMP 97.6–98.6; O2SAT 97–100
[2017-11-24] MEDS: INSULIN NovoLIN REGULAR SUPPLEMENTAL SCALE SQ SCH ×4 (00:30→17:09)
[2017-11-24] MEDS: hydrALAZINE HCL 10 MG TAB PEG SCH ×3 (05:39→20:46)
[2017-11-24] MEDS: HEPARIN SODIUM - SQ 10,000 UNITS/ML VIAL SQ SCH ×3 (05:39→20:46)
[2017-11-24] MEDS: ARTIFICIAL TEARS OPTH SOLN 15 ML BTL EACH EYE SCH ×3 (05:40→20:47)
[2017-11-24] MEDS: ASPIRIN 325 MG TAB DOBHOFF SCH (08:46)
[2017-11-24] MEDS: LISINOPRIL 5 MG TAB PEG SCH (08:46)
[2017-11-24] MEDS: FUROSEMIDE 20 MG TAB PO SCH (08:46)
[2017-11-24] MEDS: CHOLECALCIFEROL (VIT D3) 5000 UNIT CAP PEG SCH (08:46)
[2017-11-24] MEDS: CALCIUM/VITAMIN D 250 MG/125 U TAB PEG SCH ×3 (08:46→17:09)
[2017-11-24] MEDS: LANSOPRAZOLE SOLUTAB 30 MG TAB NG SCH (08:46)
[2017-11-24] MEDS: LACTOBACILLUS ACIDOPHILUS TAB PEG SCH ×2 (08:46→20:46)
[2017-11-24] MEDS: INSULIN DETEMIR 100 UNITS/ML VIAL SQ SCH (12:10)
--- NOTE | 2017-11-24 16:22 | HHI.PR ---
Subjective Remarks Had some issues a few days ago with bradycardia No more issues with this Discussed with RN Patient did not communicate any issues Objective Vitals Vital Signs Date Time Temp Pulse Resp B/P (MAP) Pulse Ox O2 Delivery O2 Flow Rate FiO2 11/24/17 16:00 97.6 72 20 155/78 (103) 98 11/24/17 12:00 98.6 65 20 152/72 (98) 100 11/24/17 08:00 98.3 75 24 155/74 (101) 98 11/24/17 07:28 98 T-piece 28 11/24/17 07:00 98 Trach Collar 6.00 28 11/24/17 04:00 98.3 58 18 158/83 (108) 97 11/24/17 00:00 98.5 77 20 137/71 (93) 97 11/23/17 22:26 99 T-piece 6.00 28 11/23/17 20:00 98.1 66 18 136/68 (90) 99 11/23/17 19:00 99 Trach Collar 6.00 28 I/O 11/23/17 11/23/17 11/23/17 11/24/17 11/24/17 11/24/17 07:00 15:00 23:00 07:00 15:00 23:00 Intake Total 900 ml 695 ml 745 ml Output Total 900 ml 1000 ml 750 ml Balance 0 ml -305 ml -5 ml Tube Feeding 480 ml 495 ml 505 ml Other 420 ml 200 ml 240 ml Output Urine Total 900 ml 1000 ml 750 ml # Bowel Movements 0 2 1 Result Diagram: 11/22/17 1154 11/22/17 1154 Other Results Laboratory Tests Test 11/21/17 20:38 11/22/17 11:54 Blood Urea Nitrogen 31 MG/DL 27 MG/DL Creatinine 0.50 MG/DL 0.46 MG/DL Random Glucose 134 MG/DL 206 MG/DL Albumin 2.7 GM/DL 2.5 GM/DL Calcium Level 9.6 MG/DL 9.0 MG/DL Phosphorus Level 2.9 MG/DL 3.3 MG/DL Sodium Level 138 MEQ/L 137 MEQ/L Potassium Level 4.4 MEQ/L 4.4 MEQ/L Chloride Level 99 MEQ/L 100 MEQ/L Carbon Dioxide Level 33.1 MEQ/L 30.4 MEQ/L Anion Gap 6 MEQ/L 7 MEQ/L Estimat Glomerular Filtration Rate 120 ML/MIN 132 ML/MIN White Blood Count 7.8 TH/MM3 Red Blood Count 2.98 MIL/MM3 Hemoglobin 10.3 GM/DL Hematocrit 29.9 % Mean Corpuscular Volume 100.5 FL Mean Corpuscular Hemoglobin 34.5 PG Mean Corpuscular Hemoglobin Concent 34.3 % Red Cell Distribution Width 15.8 % Platelet Count 349 TH/MM3 Mean Platelet Volume 10.0 FL Neutrophils (%) (Auto) 60.9 % Lymphocytes (%) (Auto) 28.4 % Monocytes (%) (Auto) 6.5 % Eosinophils (%) (Auto) 3.0 % Basophils (%) (Auto) 1.2 % Neutrophils # (Auto) 4.8 TH/MM3 Lymphocytes # (Auto) 2.2 TH/MM3 Monocytes # (Auto) 0.5 TH/MM3 Eosinophils # (Auto) 0.2 TH/MM3 Basophils # (Auto) 0.1 TH/MM3 CBC Comment DIFF FINAL Differential Comment Magnesium Level 2.0 MG/DL Imaging Last Impressions Chest X-Ray 11/13/17 0000 Signed Impressions: Service Date/Time: October 15:36 - CONCLUSION: 1. Cardiomegaly with worsening pulmonary edema pattern. 2. Probable trace left pleural effusion. Alejo De La Vega MD Upper Extremity Ultrasound 11/04/17 0000 Signed Impressions: Service Date/Time: Saturday, November 04, 2017 09:57 - CONCLUSION: No thrombus observed. Subcutaneous edema noted. Deangelo Wren Jr., MD Abdomen X-Ray 11/04/17 0000 Signed Impressions: Service Date/Time: Saturday, November 04, 2017 11:58 - CONCLUSION: Gaseous distention of bowel loops could be ileus but unchanged. Benja Ramsey MD CT Angiography 11/01/17 0000 Signed Impressions: Service Date/Time: Wednesday, November 01, 2017 16:47 - CONCLUSION: No evidence for pulmonary embolism. Please see above. Choco Mustafa MD Thoracentesis 08/05/17 1535 Signed Impressions: Service Date/Time: Saturday, August 05, 2017 16:08 - CONCLUSION: Uncomplicated CT-guided thoracentesis. Sage Adler MD Chest Ultrasound 08/02/17 0000 Signed Impressions: Service Date/Time: Tuesday, August 01, 2017 22:06 - CONCLUSION: 1. Moderate right pleural effusion, as above. Alejo De La Vega MD Hip and Pelvis X-Ray 07/09/17 0000 Signed Impressions: Service Date/Time: Sunday, July 09, 2017 14:04 - CONCLUSION: Anatomic alignment. Ricardo Middleton MD FACR Liver Ultrasound 06/19/17 0000 Signed Impressions: Service Date/Time: June 13:20 - CONCLUSION: 1. Mildly increased echotexture of the liver characteristic of hepatic steatosis. 2. Gallbladder sludge. Obdulio Sam MD Head CT 05/15/17 0000 Signed Impressions: Service Date/Time: May 19:59 - CONCLUSION: 1. 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 2. No bleed or new/acute infarct. Obdulio Simms MD Gall Bladder Ultrasound 05/08/17 0000 Signed Impressions: Service Date/Time: May 08:23 - CONCLUSION: Focally unremarkable appearance of the gallbladder Obdulio Chun MD Abdomen/Pelvis CT 05/07/17 0000 Signed Impressions: Service Date/Time: Sunday, May 07, 2017 13:23 - CONCLUSION: 1. Large left pneumothorax. 2. Bilateral lower lobe consolidation and bilateral moderate size pleural effusions. 3. Significant soft tissue thickening of the right lateral chest wall and left gluteus muscle. 4. Mild ascites. The findings were called to Dr. Carney. Deangelo Zamora MD Chest CT 04/30/17 0000 Signed Impressions: Service Date/Time: Sunday, April 30, 2017 09:20 - CONCLUSION: 1. Bilateral pulmonary infiltrates more pronounced within the lower lobes with tiny bilateral pleural effusions. Material seen filling the lower lobe bronchi bilaterally either related to purulent material or perhaps mucus plugging. Deangelo Wren Jr., MD Carotid Artery Ultrasound 04/24/17 0000 Signed Impressions: Service Date/Time: April 09:45 - CONCLUSION: 1. No hemodynamically significant carotid artery stenosis. Arnie Middleton MD Hip X-Ray 04/21/17 0000 Signed Impressions: Service Date/Time: Friday, April 21, 2017 11:36 - CONCLUSION: Fluoroscopic images during placement of intramedullary siomara left femur. Benja aRmsey MD Objective Remarks GENERAL: Awake follows no commands left side is flaccid can move right side review of systems is unobtainable SKIN: Warm and dry. HEAD: Atraumatic. Normocephalic. EYES: Pupils equal and round. No scleral icterus. No injection or drainage. ENT: No nasal bleeding or discharge. Mucous membranes pink and moist. NECK: Trachea midline. No JVD. Supple tracheostomy in place CARDIOVASCULAR: Regular rate and rhythm. S1-S2 no S3 or S4 RESPIRATORY: No accessory muscle use. Clear to auscultation. Breath sounds equal bilaterally. GASTROINTESTINAL: Abdomen soft, non-tender, nondistended. Hepatic and splenic margins not palpable. PEG tube in place MUSCULOSKELETAL: Extremities without clubbing, cyanosis, or edema. No obvious deformities. NEUROLOGICAL: Awake and alert. No obvious cranial nerve deficits. Motor grossly within normal limits. Moves left side does not follow commands. No speech. PSYCHIATRIC: INAppropriate mood and affect; insight and judgment ABnormal. Procedures PEG tube Medications and IVs Current Medications Potassium Chloride 100 ml @ As Directed STK-MED ONCE .ROUTE Last administered on 04/20/17 13:58; Start 04/20/17 at 13:50; Stop 04/20/17 at 13:51; Status DC Sodium Chloride 1,000 ml @ 250 mls/hr Q4H IV ; Start 04/20/17 at 14:30; Stop at 21:57; Status DC Dextrose/Sodium Chloride 1,000 ml @ 200 mls/hr Q5H IV Last administered on 14:30; Start 04/20/17 at 14:30; Stop 04/20/17 at 21:57; Status DC Miscellaneous Medication ([facility] [place] [facility]) Mix all IV Medications in Nor... UNSCH .XX ; Start 04/20/17 at 14:30; Stop 04/20/17 at 21:57; Status DC Potassium Chloride 100 ml @ 100 mls/hr Q1H PRN IV SEE PROTOCOL; Start at 14:30; Stop 04/20/17 at 21:57; Status DC Potassium Chloride 100 ml @ 50 mls/hr Q2H PRN IV SEE PROTOCOL; Start 04/20/17 at 14:30; Stop 04/20/17 at 21:57; Status DC Potassium Chloride 100 ml @ 100 mls/hr Q1H PRN IV SEE PROTOCOL; Start at 14:30; Stop 04/20/17 at 21:57; Status DC Potassium Chloride 100 ml @ 100 mls/hr Q1H PRN IV SEE PROTOCOL TABLE; Start at 14:30; Stop 04/20/17 at 21:57; Status DC Potassium Chloride 100 ml @ 50 mls/hr Q2H PRN IV SEE PROTOCOL; Start 04/20/17 at 14:30; Stop 04/20/17 at 21:57; Status DC Potassium Chloride 100 ml @ 50 mls/hr Q2H PRN IV SEE PROTOCOL TABLE; Start at 14:30; Stop 04/20/17 at 21:57; Status DC Potassium Chloride 100 ml @ 50 mls/hr Q2H PRN IV SEE PROTOCOL TABLE; Start at 14:30; Stop 04/20/17 at 21:57; Status DC Potassium Chloride 100 ml @ 50 mls/hr Q2H PRN IV SEE PROTOCOL TABLE; Start at 14:30; Stop 04/20/17 at 21:57; Status DC Insulin Human Regular (NovoLIN R INJ) 0.1 units/ Kg actual body weight BOLUS ONCE IV PUSH Last administered on 04/20/17t 15:51; Start 04/20/17 at 14:30; Stop 04/20/17 at 14:31; Status DC Insulin Human Regular 100 units/ Sodium Chloride 100 ml @ 0 mls/hr TITRATE IV ; Start 04/20/17 at 14:30; Stop 04/20/17 at 21:57; Status DC Dextrose (D50w (Vial) Inj) 50 ml Q10M PRN IV PUSH HYPOGLYCEMIA DKA -SEE COMMENTS; Start 04/20/17 at 14:30; Stop 04/20/17 at 21:57; Status DC Sodium Bicarbonate (Sodium Bicarbonate 8.4% Inj) 100 meq STAT PRN IV SEE LABEL COMMENTS; Start 04/20/17 at 14:30; Stop 04/20/17 at 21:57; Status DC Sodium Bicarbonate (Sodium Bicarbonate 8.4% Inj) 50 meq STAT PRN IV SEE LABEL COMMENTS; Start 04/20/17 at 14:30; Stop 04/20/17 at 21:57; Status DC Sodium Phosphate 15 mmol/Sodium Chloride 105 ml @ 25 mls/hr UNSCH PRN IV SEE PROTOCOL TABLE; Start 04/20/17 at 14:30; Stop 04/20/17 at 21:57; Status DC Acetaminophen (Tylenol) 650 mg Q6H PRN PO PAIN SCALE 1 TO 2 Last administered on 05/03/17 00:27; Start 04/20/17 at 14:30; Stop 05/07/17 at 12:46; Status DC Ondansetron HCl (Zofran Inj) 4 mg Q6H PRN IV PUSH NAUSEA AND VOMITING Last administered on 04/30/17 02:28; Start 04/20/17 at 15:00; Stop 08/04/17 at 16:22 ; Status DC Heparin Sodium (Porcine) (Heparin Inj) 5,000 units Q12HR SQ Last administered on 04/20/17 21:00; Start 04/20/17 at 21:00; Stop 04/21/17 at 11:44; Status DC Morphine Sulfate (Morphine Inj) 1 mg Q3H PRN IV Pain 3-5; if unable to take PO Last administered on 04/28/17 18:15; Start 04/20/17 at 17:15; Stop 05/19/17 at 07:55; Status DC Morphine Sulfate (Morphine Inj) 2 mg Q3H PRN IV Pain 6-10;if unable to take PO Last administered on 04/30/17 02:29; Start 04/20/17 at 17:15; Stop 05/19/17 at 07:55; Status DC Naloxone HCl (Narcan Inj) 0.4 mg UNSCH PRN IV SEE LABEL COMMENTS; Start at 17:15 Senna/Docusate Sodium (Nalini-Colace) 1 tab BID PO Last administered on 05/07/17 10:30; Start 04/20/17 at 21:00; Stop 05/07/17 at 12:50; Status DC Magnesium Hydroxide (Milk Of Magnesia Liq) 30 ml Q12H PRN PO MILD - MODERATE CONSTIPATION; Start 04/20/17 at 20:30; Stop 07/26/17 at 16:12; Status DC Sennosides (Senokot) 17.2 mg Q12H PRN PO MODERATE - SEVERE CONSTIPATION Last administered on 04/23/17 22:55; Start 04/20/17 at 20:30; Stop 05/19/17 at 08:05 ; Status DC Bisacodyl (Dulcolax Supp) 10 mg DAILY PRN RECTAL SEVERE CONSITIPATION; Start at 20:30; Stop 07/26/17 at 16:12; Status DC Lactulose (Lactulose Liq) 30 ml DAILY PRN PO SEVERE CONSITIPATION; Start at 20:30; Stop 05/05/17 at 09:24; Status DC Dextrose (D50w (Vial) Inj) 50 ml UNSCH PRN IV HYPOGLYCEMIA-SEE COMMENTS; Start 04/20/17 at 21:45; Stop 04/24/17 at 09:34; Status DC Glucagon (Glucagon Inj) 1 mg UNSCH PRN OTHER HYPOGLYCEMIA-SEE COMMENTS; Start 04/20/17 at 21:45; Stop 04/24/17 at 09:34; Status DC Insulin Aspart (NovoLOG SUPPLEMENTAL SCALE) 1 ACHS SLIDING SCALE SQ Last administered on 04/24/17 06:43; Start 04/21/17 at 07:00; Stop 04/24/17 at 09:35 ; Status DC Calcium Carbonate (Oscal) 500 mg ONCE ONCE PO ; Start 04/21/17 at 07:00; Stop 04/21/17 at 07:11; Status DC Sodium Phosphate 15 mmol/Sodium Chloride 155 ml @ 38.75 mls/ hr ONCE ONCE IV Last administered on 04/21/17 09:32; Start 04/21/17 at 07:00; Stop 04/21/17 at 10:59; Status DC Sodium Chloride 1,000 ml @ 75 mls/hr [id number] IV ; Start 04/21/17 at 09:03; Stop 04/21/17 at 09:03; Status DC Sodium Chloride 1,000 ml @ 100 mls/hr Q10H IV Last administered on 04/23/17 02:15; Start 04/21/17 at 09:03; Stop 04/24/17 at 09:12; Status DC Cefazolin Sodium (Ancef Inj) 1,000 mg STK-MED ONCE .ROUTE Last administered on 04/21/17 10:38; Start 04/21/17 at 10:30; Stop 04/21/17 at 10:31; Status DC Gentamicin Sulfate (Gentamicin Inj) 160 mg STK-MED ONCE .ROUTE Last administered on 04/21/17 11:36; Start 04/21/17 at 10:30; Stop 04/21/17 at 10:31 ; Status DC Vancomycin HCl (Vancomycin Inj) 1,000 mg STK-MED ONCE .ROUTE Last administered on 04/21/17 11:04; Start 04/21/17 at 10:40; Stop 04/21/17 at 10:41; Status DC Bupivacaine HCl/ Epinephrine Bitart (Sensorcaine-Epinephrine 0.25% Inj) 50 ml STK-MED ONCE .ROUTE Last administered on 04/21/17 11:39; Start 04/21/17 at 11: 39; Stop 04/21/17 at 11:40; Status DC IV Flush (NS Flush) 2 ml UNSCH PRN IVF FLUSH AFTER USING IV ACCESS; Start 04/21 at 11:45; Stop 04/24/17 at 09:34; Status DC IV Flush (NS Flush) 2 ml BID IVF Last administered on 04/23/17 07:51; Start at 21:00; Stop 04/24/17 at 09:34; Status DC Enoxaparin Sodium (Lovenox Inj) 30 mg Q24H SQ Last administered on 04/23/17 11 :01; Start 04/22/17 at 11:00; Stop 04/24/17 at 18:07; Status DC Cefazolin Sodium 1000 mg/Sodium Chloride 100 ml @ 200 mls/hr Q8H IV Last administered on 04/22/17 09:07; Start 04/21/17 at 18:00; Stop 04/22/17 at 10:29 ; Status DC Calcium/Vitamin D (Oscal-D 250-125) 250 mg TID PO Last administered on at 09:56; Start 04/21/17 at 13:00; Stop 10/03/17 at 11:55; Status DC Diphenhydramine HCl (Benadryl) 25 mg Q6H PRN PO ITCHING; Start 04/21/17 at 11: 45; Stop 04/24/17 at 08:24; Status DC Acetaminophen/ Hydrocodone Bitart ([place] 7.5-325 Mg) 1 tab Q3H PRN PO pain 3< 10 Last administered on 05/03/17 20:17; Start 04/21/17 at 11:45; Stop 05/07/17 at 12:46; Status DC Cholecalciferol (Vitamin D3) 5,000 units DAILY PO Last administered on at 09:08; Start 04/22/17 at 09:00; Stop 10/03/17 at 11:55; Status DC Ergocalciferol (Drisdol) 50,000 units ONCE ONCE PO ; Start 04/21/17 at 13:00; Stop 04/21/17 at 13:01; Status DC Midazolam HCl (Versed Inj) 2 mg STK-MED ONCE .ROUTE ; Start 04/21/17 at 12:15; Stop 04/21/17 at 12:16; Status DC Fentanyl Citrate (fentaNYL INJ) 250 mcg STK-MED ONCE .ROUTE ; Start 04/21/17 at 12:16; Stop 04/21/17 at 12:17; Status DC Morphine Sulfate (*morphine INJ PERIprocedure ONLY) 8 mg STK-MED ONCE .ROUTE Last administered on 04/21/17 12:37; Start 04/21/17 at 12:36; Stop 04/21/17 at 12:37; Status DC Miscellaneous Information ALL NURSING DEPARTME... UNSCH PRN .XX SEE LABEL COMMENTS; Start 04/21/17 at 13:00; Stop 04/22/17 at 12:59; Status DC Calcium Carbonate (Oscal) 500 mg ONCE ONCE PO ; Start 04/24/17 at 08:00; Stop 04/24/17 at 08:01; Status DC Sodium Chloride 1,000 ml @ 70 mls/hr [id number] IV ; Start 04/24/17 at 09:15; Stop 04/24/17 at 09:37; Status DC IV Flush (NS Flush) 2 ml BID IV FLUSH Last administered on 11/16/17at 09:00; Start 04/24/17 at 21:00; Stop 11/16/17 at 10:52; Status DC IV Flush (NS Flush) 2 ml UNSCH PRN IV FLUSH FLUSH AFTER USING IV ACCESS Last administered on 09/17/17at 08:48; Start 04/24/17 at 09:30; Stop 11/21/17 at 20:44 ; Status DC Sodium Chloride 1,000 ml @ 70 mls/hr [id number] IV Last administered on 03:38; Start 04/24/17 at 09:25; Stop 04/30/17 at 07:51; Status DC Aspirin (Aspirin Supp) 300 mg DAILY RECTAL Last administered on 04/26/17 08:38 ; Start 04/24/17 at 09:30; Stop 04/26/17 at 15:21; Status DC Insulin Aspart (NovoLOG SUPPLEMENTAL SCALE) 1 ACHS SQ Last administered on 04/24 17:29; Start 04/24/17 at 11:00; Stop 04/24/17 at 18:07; Status DC Dextrose (D50w (Vial) Inj) 50 ml UNSCH PRN IV PUSH HYPOGLYCEMIA-SEE COMMENTS; Start 04/24/17 at 09:30; Stop 04/24/17 at 18:07; Status DC Glucagon (Glucagon Inj) 1 mg UNSCH PRN OTHER HYPOGLYCEMIA-SEE COMMENTS; Start 04/24/17 at 09:30; Stop 04/24/17 at 18:07; Status DC Insulin Aspart (NovoLOG SUPPLEMENTAL SCALE) 1 Q4HR SQ ; Start 04/24/17 at 18:15 ; Stop 04/24/17 at 20:43; Status DC Dextrose (D50w (Vial) Inj) 25 ml UNSCH PRN IV HYPOGLYCEMIA-SEE COMMENTS; Start 04/24/17 at 18:15; Stop 04/26/17 at 20:28; Status DC Glucagon (Glucagon Inj) 1 mg UNSCH PRN IM/SQ HYPOGLYCEMIA-SEE COMMENTS; Start 04/24/17 at 18:15; Stop 05/21/17 at 13:34; Status DC Insulin Aspart (NovoLOG SUPPLEMENTAL SCALE) 1 Q4H SQ Last administered on 03:48; Start 04/24/17 at 22:00; Stop 04/26/17 at 09:43; Status DC Insulin Detemir (Levemir Inj) 10 units HS SQ Last administered on 04/25/17 23: 46; Start 04/25/17 at 21:00; Stop 04/26/17 at 09:43; Status DC Insulin Detemir (Levemir Inj) 20 units BID SQ Last administered on 04/26/17 11 :05; Start 04/26/17 at 10:00; Stop 04/27/17 at 08:34; Status DC Mannitol (Mannitol Inj) 12.5 gm Q6HR IV Last administered on 04/26/17 11:06; Start 04/26/17 at 12:00; Stop 04/28/17 at 18:33; Status DC Dextrose (D50w (Vial) Inj) 50 ml UNSCH PRN IV HYPOGLYCEMIA-SEE COMMENTS; Start 04/26/17 at 09:45; Status UNV Glucagon (Glucagon Inj) 1 mg UNSCH PRN OTHER HYPOGLYCEMIA-SEE COMMENTS; Start 04/26/17 at 09:45; Status UNV Insulin Aspart (NovoLOG SUPPLEMENTAL SCALE) 1 ACHS SLIDING SCALE SQ Last administered on 04/26/17 11:48; Start 04/26/17 at 11:00; Stop 04/26/17 at 15:24 ; Status DC Insulin Aspart (NovoLOG SUPPLEMENTAL SCALE) 1 Q4HR SQ Last administered on 04/28 09:38; Start 04/26/17 at 16:00; Stop 04/28/17 at 15:40; Status DC Aspirin (Aspirin) 325 mg DAILY DOBHOFF Last administered on 11/24/17at 08:46; Start 04/27/17 at 09:00 Dextrose (D50w (Syr) Inj) 25 ml UNSCH PRN IV HYPOGLYCEMIA- SEE COMMENTS Last administered on 05/18/17 00:22; Start 04/26/17 at 20:30; Stop 05/19/17 at 08:01 ; Status DC Metoprolol Tartrate (Lopressor Inj) 5 mg Q5M PRN IV PUSH HR>150 Last administered on 06/02/17 03:21; Start 04/27/17 at 04:00; Stop 07/12/17 at 01: 05; Status DC Insulin Detemir (Levemir Inj) 15 units BID SQ Last administered on 04/28/17 09 :39; Start 04/27/17 at 09:00; Stop 04/28/17 at 15:36; Status DC Potassium Chloride 100 ml @ 50 mls/hr Q2H PRN IV For Potassium 2.8 - 3.2 mEq/L ; Start 04/27/17 at 08:45; Stop 07/12/17 at 00:31; Status DC Potassium Chloride 100 ml @ 50 mls/hr Q2H PRN IV For Potassium 2.8 - 3.2 mEq/ L Last administered on 05/18/17 10:41; Start 04/27/17 at 08:45; Stop 07/12/17 at 00:31; Status DC Potassium Bicarb/ Potassium Chloride (K-Lyte Cl Eff) 50 meq UNSCH PRN PO For Potassium 3.3 - 3.5 mEq/L; Start 04/27/17 at 08:45; Stop 07/12/17 at 00:31; Status DC Potassium Chloride 100 ml @ 25 mls/hr UNSCH PRN IV For Potassium 3.3 - 3.5 mEq /L Last administered on 05/04/17 19:07; Start 04/27/17 at 08:45; Stop 07/12/17 at 00:31; Status DC Potassium Chloride 100 ml @ 50 mls/hr Q2H PRN IV For Potassium 3.3 - 3.5 mEq/ L Last administered on 05/18/17 08:29; Start 04/27/17 at 08:45; Stop 07/12/17 at 00:31; Status DC Magnesium Sulfate 4 gm/Sodium Chloride 100 ml @ 50 mls/hr UNSCH PRN IV For Magnesium 0.9 - 1.1 mg/dL; Start 04/27/17 at 08:45; Stop 07/12/17 at 00:31; Status DC Magnesium Oxide (Mag-Ox) 800 mg UNSCH PRN PO For Magnesium 1.2 - 1.6 mg/dL; Start 04/27/17 at 08:45; Stop 07/12/17 at 00:31; Status DC Magnesium Sulfate 2 gm/Sodium Chloride 100 ml @ 50 mls/hr UNSCH PRN IV For Magnesium 1.2 - 1.6 mg/dL; Start 04/27/17 at 08:45; Stop 07/12/17 at 00:31; Status DC Potassium Phosphate (K-Phos) 2,000 mg Q4H PRN PO For Phosphorus < 2.5 mg/dL Last administered on 04/28/17 15:38; Start 04/27/17 at 08:45; Stop 07/12/17 at 00:31; Status DC Sodium Phosphate 30 mmol/Sodium Chloride 250 ml @ 42 mls/hr UNSCH PRN IV For Phosphorus < 2.5 mg/dL Last administered on 04/27/17 23:59; Start 04/27/17 at 08:45; Stop 07/12/17 at 00:31; Status DC Potassium Phosphate (K-Phos) 2,000 mg UNSCH PRN PO/TUBE SEE LABEL COMMENTS Last administered on 05/08/17 06:32; Start 04/27/17 at 08:45; Stop 07/12/17 at 00:31; Status DC Potassium Phosphate 30 mmol/ Sodium Chloride 260 ml @ 42 mls/hr UNSCH PRN IV SEE LABEL COMMENTS Last administered on 05/04/17 20:54; Start 04/27/17 at 08:45 ; Stop 07/12/17 at 00:31; Status DC Insulin Detemir (Levemir Inj) 10 units BID SQ Last administered on 04/30/17 21 :00; Start 04/28/17 at 21:00; Stop 05/01/17 at 07:49; Status DC Pantoprazole Sodium (Protonix Inj) 40 mg Q24H IV PUSH Last administered on 17:00; Start 04/28/17 at 17:00; Stop 05/07/17 at 12:52; Status DC Insulin Aspart (NovoLOG SUPPLEMENTAL SCALE) 1 ACHS SLIDING SCALE SQ Last administered on 05/18/17 21:00; Start 04/28/17 at 16:00; Stop 05/19/17 at 07:55 ; Status DC Sodium Chloride 250 ml @ 15 mls/hr ONCE ONCE IV ; Start 04/28/17 at 18:00; Stop 04/28/17 at 18:33; Status DC Acetaminophen (Ofirmev 1000 Mg/ 100 ml Inj) 1,000 mg NOW ONCE IV Last administered on 04/29/17 01:00; Start 04/29/17 at 01:00; Stop 04/29/17 at 01:01 ; Status DC Iohexol (Omnipaque 350 Inj) 75 ml STK-MED ONCE IVCONTRAST Last administered on 04/26/17 04:26; Start 04/26/17 at 04:26; Stop 04/29/17 at 10:24; Status DC Fluconazole/ Sodium Chloride 100 ml @ 100 mls/hr Q24H IV Last administered on 04/30/17 14:59; Start 04/29/17 at 14:00; Stop 04/30/17 at 15:40; Status DC Metronidazole (Flagyl) 500 mg Q8HR DOBHOFF Last administered on 05/13/17 13:37 ; Start 04/29/17 at 14:00; Stop 05/13/17 at 16:14; Status DC Albuterol/ Ipratropium (Duoneb Neb) 1 ampule Q4HR NEB PRN NEB CONGESTION Last administered on 05/04/17 20:38; Start 04/30/17 at 04:45; Stop 05/07/17 at 12:46; Status DC Bumetanide (Bumex Inj) 1 mg ONCE ONCE IV PUSH Last administered on 04/30/17 10:14; Start 04/30/17 at 08:00; Stop 04/30/17 at 08:01; Status DC Potassium Chloride/Sodium Chloride 1,000 ml @ 84 mls/hr [id number] IV Last administered on 05/01/17 07:00; Start 04/30/17 at 08:00; Stop 05/01/17 at 07:32 ; Status DC Albuterol/ Ipratropium (Duoneb Neb) 1 ampule Q6HR NEB NEB Last administered on 05/04/17 07:52; Start 04/30/17 at 10:00; Stop 05/04/17 at 09:59; Status DC Cefepime HCl 2000 mg/Sodium Chloride 100 ml @ 200 mls/hr Q8H IV Last administered on 05/04/17 07:53; Start 04/30/17 at 09:00; Stop 05/04/17 at 08:22; Status DC Micafungin Sodium 100 mg/Sodium Chloride 100 ml @ 100 mls/hr Q24H IV Last administered on 05/07/17 10:29; Start 04/30/17 at 09:00; Stop 05/07/17 at 13:49; Status DC Etomidate (Amidate Inj) 20 mg STK-MED ONCE .ROUTE Last administered on 15:07; Start 04/30/17 at 14:56; Stop 04/30/17 at 14:57; Status DC Midazolam HCl (Versed Inj) 5 mg STK-MED ONCE .ROUTE Last administered on 15:06; Start 04/30/17 at 14:57; Stop 04/30/17 at 14:58; Status DC Rocuronium [place] (Zemuron Inj) 50 mg STK-MED ONCE .ROUTE Last administered on 04/30/17 15:07; Start 04/30/17 at 14:58; Stop 04/30/17 at 14:59; Status DC Etomidate (Amidate Inj) 20 mg NOW ONCE IV PUSH ; Start 04/30/17 at 15:30; Stop 04/30/17 at 15:31; Status DC Midazolam HCl (Versed Inj) 5 mg NOW ONCE IV PUSH ; Start 04/30/17 at 15:30; Stop 04/30/17 at 15:32; Status DC Rocuronium [place] (Zemuron Inj) 50 mg NOW ONCE IV PUSH ; Start 04/30/17 at 15: 45; Stop 04/30/17 at 15:46; Status DC Vancomycin HCl 1000 mg/Sodium Chloride 250 ml @ 250 mls/hr Q12H IV ; Start at 15:45; Status Cancel Pharmacy Profile Note 1,000 ml @ 30 mls/hr UNSCH OTHER ; Start 04/30/17 at 15: 45; Stop 05/04/17 at 08:22; Status DC Vancomycin HCl 1250 mg/Sodium Chloride 262.5 ml @ 250 mls/hr Q12H IV Last administered on 05/03/17 07:24; Start 04/30/17 at 18:00; Stop 05/03/17 at 15:39; Status DC Miscellaneous Information SPECIFIC LAB TO BE DRAWN:VANCOMYCIN TROUGH DATE TO... ONCE ONCE .XX ; Start 05/02/17 at 05:45; Stop 05/02/17 at 05:46; Status DC Sodium Chloride 1,000 ml @ 84 mls/hr [id number] IV Last administered on 05/02/17 09:24; Start 05/01/17 at 07:30; Stop 05/02/17 at 11:49; Status DC Insulin Detemir (Levemir Inj) 20 units Q12H SQ Last administered on 9/1/17at 09 :23; Start 05/01/17 at 09:00; Stop 05/02/17 at 12:07; Status DC Enoxaparin Sodium (Lovenox Inj) 40 mg Q24H SQ Last administered on 07/14/17 07:47; Start 05/01/17 at 08:00; Stop 07/14/17 at 12:05; Status DC Lactated Ringer's 1,000 ml @ 75 mls/hr [id number] IV Last administered on 05:57; Start 05/02/17 at 13:00; Stop 05/07/17 at 16:50; Status DC Insulin Detemir (Levemir Inj) 25 units Q12H SQ Last administered on 05/04/17 07 :50; Start 05/02/17 at 21:00; Stop 05/05/17 at 09:20; Status DC Vancomycin HCl 1250 mg/Sodium Chloride 262.5 ml @ 262.5 mls/ hr Q24H IV Last administered on 05/04/17 05:21; Start 05/04/17 at 06:00; Stop 05/04/17 at 08:22; Status DC Miscellaneous Information SPECIFIC LAB TO BE ROLF... ONCE ONCE .XX ; Start at 05:45; Stop 05/06/17 at 05:45; Status DC Levofloxacin/ Dextrose 150 ml @ 100 mls/hr Q24H IV Last administered on 10:00; Start 05/04/17 at 09:00; Stop 05/13/17 at 16:14; Status DC Furosemide (Lasix Inj) 10 mg BID@09,18 IV PUSH Last administered on 05/05/17 09 :05; Start 05/04/17 at 18:00; Stop 05/05/17 at 09:01; Status DC Albuterol/ Ipratropium (Duoneb Neb) 1 ampule Q6HR ALT NEB NEB Last administered on 05/05/17 04:30; Start 05/05/17 at 01:00; Stop 05/05/17 at 04:38; Status DC Albuterol/ Ipratropium (Duoneb Neb) 1 ampule Q6HR NEB NEB Last administered on 05/08/17 09:56; Start 05/05/17 at 10:00; Stop 05/08/17 at 10:15; Status DC Insulin Detemir (Levemir Inj) 10 units Q12H SQ Last administered on 05/07/17 10 :43; Start 05/05/17 at 21:00; Stop 05/07/17 at 13:54; Status DC Lactulose (Lactulose Liq) 30 ml DAILY PO Last administered on 05/07/17 10:29; Start 05/05/17 at 09:30; Stop 05/07/17 at 12:50; Status DC Sodium Chloride 1,000 ml @ 999 mls/hr BOLUS ONCE IV Last administered on 09:08; Start 05/06/17 at 07:45; Stop 05/06/17 at 08:45; Status DC Propofol (Diprivan 200 Mg/20 ml Inj) 200 mg STK-MED ONCE IV ; Start 04/21/17 at 12:12; Stop 05/06/17 at 12:13; Status DC Ephedrine Sulfate (ePHEDrine/NS 25 MG/5 ML SYR) 25 mg STK-MED ONCE IV ; Start at 12:12; Stop 05/06/17 at 12:13; Status DC Neostigmine Methylsulfate (Prostigmin Inj) 3 mg STK-MED ONCE IV ; Start at 12:12; Stop 05/06/17 at 12:13; Status DC Phenylephrine HCl (Neosynephrine/ NS 1000 Mcg/10ml Syr) 1,000 mcg STK-MED ONCE IV ; Start 04/21/17 at 12:12; Stop 05/06/17 at 12:13; Status DC Ondansetron HCl (Zofran Inj) 4 mg STK-MED ONCE IV PUSH ; Start 04/21/17 at 12:12 ; Stop 05/06/17 at 12:13; Status DC Albumin Human (Albumin 5% Inj) 25 gm NOW ONCE IV Last administered on 21:11; Start 05/06/17 at 20:45; Stop 05/06/17 at 20:46; Status DC Albuterol Sulfate (Albuterol Neb) 2.5 mg Q2HR NEB PRN NEB DYSPNEA; Start at 12:30; Stop 05/07/17 at 14:30; Status DC Bumetanide (Bumex Inj) 1 mg ONCE ONCE IV PUSH Last administered on 05/07/17 15 :07; Start 05/07/17 at 15:00; Stop 05/07/17 at 15:01; Status DC Metolazone (Zaroxolyn) 2.5 mg ONCE ONCE PO Last administered on 05/07/17 16:36 ; Start 05/07/17 at 15:30; Stop 05/07/17 at 15:31; Status DC Potassium Chloride (KCl Powder) 20 meq ONCE ONCE PO Last administered on 15:00; Start 05/07/17 at 15:00; Stop 05/07/17 at 15:01; Status DC Docusate Sodium (Colace Liq) 100 mg Q12HR PO Last administered on 07/22/17 21 :52; Start 05/07/17 at 21:00; Stop 07/26/17 at 16:13; Status DC Sennosides (Senna Liq) 8.8 mg BID OG-TUBE Last administered on 05/17/17 09:11 ; Start 05/07/17 at 21:00; Stop 05/19/17 at 08:05; Status DC Lactulose (Lactulose Liq) 30 ml QID PO Last administered on 05/16/17 20:56; Start 05/07/17 at 18:00; Stop 05/19/17 at 08:05; Status DC Polyethylene Glycol (Miralax) 17 gm BID OG-TUBE Last administered on 05/16/17 20:56; Start 05/07/17 at 21:00; Stop 05/19/17 at 08:05; Status DC Mineral Oil (Fleet Mineral Oil Enema) 118 ml ONCE ONCE RECTAL ; Start 05/07/17 at 13:00; Stop 05/07/17 at 14:37; Status DC Mineral Oil (Mineral Oil Liq) 30 ml ONCE ONCE PO Last administered on 16:36; Start 05/07/17 at 16:00; Stop 05/07/17 at 16:02; Status DC Methylnaltrexone [place] (Relistor Inj) 12 mg ONCE ONCE SQ Last administered on 05/07/17 16:37; Start 05/07/17 at 15:00; Stop 05/07/17 at 15:01; Status DC Albuterol Sulfate (Albuterol Neb) 2.5 mg Q2HR NEB PRN NEB DYSPNEA Last administered on 07/06/17 23:51; Start 05/07/17 at 13:00; Stop 07/16/17 at 16:36 ; Status DC Lansoprazole (Prevacid Odt) 30 mg DAILY NG Last administered on 11/24/17at 08:46 ; Start 05/08/17 at 09:00 Iohexol (Omnipaque 350 Inj) 60 ml STK-MED ONCE IVCONTRAST Last administered on 05/07/17 13:35; Start 05/07/17 at 13:35; Stop 05/07/17 at 13:36; Status DC Insulin Detemir (Levemir Inj) 15 units Q12H SQ Last administered on 05/10/17 20 :49; Start 05/07/17 at 21:00; Stop 05/11/17 at 09:21; Status DC Fentanyl Citrate (fentaNYL INJ) 100 mcg STK-MED ONCE .ROUTE ; Start 05/07/17 at 14:17; Stop 05/07/17 at 14:18; Status DC Midazolam HCl (Versed Inj) 5 mg STK-MED ONCE .ROUTE ; Start 05/07/17 at 14:18; Stop 05/07/17 at 14:19; Status DC Mineral Oil (Fleet Mineral Oil Enema) 118 ml ONCE ONCE RECTAL Last administered on 05/07/17 16:35; Start 05/07/17 at 16:00; Stop 05/07/17 at 16:02; Status DC Fentanyl Citrate (fentaNYL INJ) 50 mcg NOW ONCE IV Last administered on 17:21; Start 05/07/17 at 17:15; Stop 05/07/17 at 17:20; Status DC Midazolam HCl (Versed Inj) 1 mg NOW ONCE IV Last administered on 05/07/17 17: 15; Start 05/07/17 at 17:15; Stop 05/07/17 at 17:20; Status DC Potassium Chloride (KCl Powder) 80 meq ONCE ONCE PO Last administered on 10:29; Start 05/08/17 at 10:00; Stop 05/08/17 at 10:01; Status DC Potassium Chloride 100 ml @ 100 mls/hr Q1H IV Last administered on 05/08/17 15 :24; Start 05/08/17 at 10:00; Stop 05/08/17 at 12:59; Status DC Potassium Phos/ Sodium Phos (K-Phos Neutral) 1,000 mg ONCE ONCE PO Last administered on 05/08/17 10:46; Start 05/08/17 at 10:00; Stop 05/08/17 at 10:01; Status DC Bumetanide (Bumex Inj) 1 mg ONCE ONCE IV PUSH Last administered on 05/08/17 10 :28; Start 05/08/17 at 10:00; Stop 05/08/17 at 10:01; Status DC Albuterol/ Ipratropium (Duoneb Neb) 1 ampule Q6HR NEB NEB Last administered on 05/12/17 15:53; Start 05/08/17 at 16:00; Stop 05/12/17 at 15:59; Status DC Furosemide (Lasix Inj) 20 mg BID@09,18 IV PUSH Last administered on 05/10/17 18 :00; Start 05/10/17 at 10:00; Stop 05/11/17 at 06:15; Status DC Furosemide (Lasix Inj) 40 mg BID@0900,1800 IV PUSH Last administered on 17:53; Start 05/11/17 at 09:00; Stop 05/18/17 at 08:06; Status DC Acetazolamide Sodium (Diamox Inj) 500 mg DAILY IV PUSH Last administered on 08:54; Start 05/11/17 at 09:30; Stop 05/12/17 at 23:00; Status DC Insulin Detemir (Levemir Inj) 5 units Q12H SQ Last administered on 05/17/17 09 :12; Start 05/11/17 at 21:00; Stop 05/18/17 at 08:06; Status DC Protein (Beneprotein Powder) 1 pack TID G-TUBE Last administered on 10/03/17at 09 :00; Start 05/12/17 at 13:00; Stop 10/03/17 at 11:56; Status DC Acetazolamide Sodium (Diamox Inj) 500 mg ONCE ONCE IV PUSH Last administered on 05/13/17 22:40; Start 05/13/17 at 22:00; Stop 05/13/17 at 22:01; Status DC Cisatracurium Besylate (Nimbex Inj) 12 mg ONCE ONCE IV PUSH Last administered on 05/15/17 15:15; Start 05/14/17 at 17:45; Stop 05/14/17 at 17:49; Status DC Fentanyl Citrate (fentaNYL INJ) 100 mcg PLANNING SPECIALIST IV PUSH Last administered on 15:15; Start 05/14/17 at 17:45; Stop 05/15/17 at 17:44; Status DC Midazolam HCl (Versed Inj) 2 mg PLANNING SPECIALIST IV PUSH Last administered on 15:15; Start 05/14/17 at 17:45; Stop 05/15/17 at 17:44; Status DC Cisatracurium Besylate (Nimbex Inj) 12 mg PLANNING SPECIALIST IV PUSH ; Start 05/14/17 at 18:00; Stop 05/15/17 at 17:59; Status DC Cefazolin Sodium 1000 mg/Sodium Chloride 100 ml @ 200 mls/hr PLANNING SPECIALIST IV Last administered on 05/16/17 12:35; Start 05/15/17 at 17:15; Stop 05/18/17 at 17:14 ; Status DC Propofol (Diprivan 200 Mg/20 ml Inj) 210 mg STK-MED ONCE IV ; Start 05/16/17 at 13:30; Stop 05/16/17 at 18:25; Status DC Sodium Chloride 1,000 ml @ 75 mls/hr [id number] IV Last administered on 12:42; Start 05/17/17 at 11:45; Stop 05/19/17 at 07:55; Status DC Furosemide (Lasix Inj) 40 mg DAILY IV PUSH Last administered on 05/18/17 08:29 ; Start 05/18/17 at 09:00; Stop 05/19/17 at 07:55; Status DC Furosemide (Lasix Liq) 40 mg DAILY NG Last administered on 06/18/17 11:02; Start 05/19/17 at 09:00; Stop 06/19/17 at 06:54; Status DC Dextrose (D50w (Vial) Inj) 25 ml UNSCH PRN IV PUSH HYPOGLYCEMIA-SEE COMMENTS; Start 05/19/17 at 08:00; Stop 05/20/17 at 20:59; Status DC Insulin Human Regular (NovoLIN R SUPPLEMENTAL SCALE) 1 Q4HR SQ Last administered on 05/21/17 12:00; Start 05/19/17 at 08:00; Stop 05/21/17 at 13:15 ; Status DC Insulin Detemir (Levemir Inj) 8 units DAILY SQ Last administered on 05/20/17 09:00; Start 05/19/17 at 09:00; Stop 05/21/17 at 13:15; Status DC Dextrose (D50w (Syr) Inj) 25 ml UNSCH PRN IV PUSH HYPOGLYCEMIA-SEE COMMENTS Last administered on 05/20/17 21:14; Start 05/20/17 at 21:00; Stop 05/21/17 at 13:34; Status DC Insulin Detemir (Levemir Inj) 7 units Q12H SQ Last administered on 05/22/17 09 :00; Start 05/21/17 at 21:00; Stop 05/22/17 at 17:19; Status DC Dextrose (D50w (Vial) Inj) 50 ml UNSCH PRN IV PUSH HYPOGLYCEMIA-SEE COMMENTS; Start 05/21/17 at 13:15; Stop 05/22/17 at 17:06; Status DC Glucagon (Glucagon Inj) 1 mg UNSCH PRN OTHER HYPOGLYCEMIA-SEE COMMENTS; Start 05/21/17 at 13:15; Stop 10/08/17 at 11:08; Status DC Insulin Aspart (NovoLOG SUPPLEMENTAL SCALE) 1 ACHS SLIDING SCALE SQ Last administered on 06/11/17 11:56; Start 05/21/17 at 17:00; Stop 06/12/17 at 07: 10; Status DC Dextrose (D50w (Syr) Inj) 50 ml UNSCH PRN IV PUSH HYPOGLYCEMIA-SEE COMMENTS Last administered on 10/04/17at 01:57; Start 05/22/17 at 17:15; Stop 10/08/17 at 11 :08; Status DC Insulin Detemir (Levemir Inj) 5 units Q12H SQ Last administered on 05/27/17 21 :22; Start 05/22/17 at 21:00; Stop 05/28/17 at 09:50; Status DC Enalaprilat (Vasotec Inj) 1.25 mg Q6H PRN IV PUSH SBP> OR = 180, DBP> OR = 100 Last administered on 05/31/17 05:28; Start 05/24/17 at 22:45; Stop 05/31/17 at 07:41; Status DC Water (Free Water) VOLUME: 300 ML Q6HR G-TUBE Last administered on 06/10/17 06:00; Start 05/25/17 at 14:15; Stop 06/10/17 at 11:23; Status DC Acetazolamide Sodium (Diamox Inj) 500 mg ONCE ONCE IV PUSH Last administered on 05/26/17 08:54; Start 05/26/17 at 09:00; Stop 05/26/17 at 09:01; Status DC Ceftriaxone Sodium 1000 mg/ Sodium Chloride 100 ml @ 200 mls/hr Q24H IV Last administered on 05/27/17 08:32; Start 05/26/17 at 09:00; Stop 05/27/17 at 15:41 ; Status DC Cefepime HCl 1000 mg/Sodium Chloride 100 ml @ 200 mls/hr Q12H IV Last administered on 06/03/17 05:32; Start 05/27/17 at 16:00; Stop 06/03/17 at 09:12 ; Status DC Sodium Chloride 250 ml @ 15 mls/hr ONCE ONCE IV Last administered on 09:45; Start 05/28/17 at 09:45; Stop 05/29/17 at 02:24; Status DC Acetaminophen (Tylenol) 650 mg Q4H PRN PO SEE LABEL COMMENTS; Start 05/28/17 at 10:00; Stop 06/10/17 at 11:23; Status DC Diphenhydramine HCl (Benadryl) 25 mg Q4H PRN PO SEE LABEL COMMENTS; Start 05/28 at 10:00; Stop 06/02/17 at 07:40; Status DC Furosemide (Lasix Inj) 20 mg ONCE ONCE IV PUSH ; Start 05/28/17 at 10:00; Stop 05/28/17 at 10:01; Status DC Insulin Detemir (Levemir Inj) 7 units Q12H SQ Last administered on 06/20/17 21:12; Start 05/28/17 at 21:00; Stop 06/21/17 at 07:27; Status DC Artificial Tears (Tears Naturale Opth Soln) 1 drop Q4H PRN EACH EYE DRY EYE; Start 05/29/17 at 21:15; Stop 06/12/17 at 07:10; Status DC Hydralazine HCl (Apresoline Inj) 20 mg Q4H PRN IV PUSH SBP >160 Last administered on 06/21/17 04:06; Start 05/31/17 at 07:45; Stop 06/21/17 at 07: 23; Status DC Lisinopril (Prinivil) 10 mg Q12HR PO Last administered on 06/20/17 21:12; Start 05/31/17 at 09:00; Stop 06/21/17 at 07:23; Status DC Artificial Tears (Tears Naturale Opth Soln) 1 drop Q8HR EACH EYE Last administered on 11/24/17at 13:31; Start 06/12/17 at 07:15 Insulin Aspart (NovoLOG SUPPLEMENTAL SCALE) 1 Q6HR SQ Last administered on 18:00; Start 06/12/17 at 12:00; Stop 07/16/17 at 16:36; Status DC Sodium Chloride (Sodium Chloride) 2 gm ONCE ONCE PEG Last administered on 09:41; Start 06/12/17 at 07:00; Stop 06/12/17 at 07:12; Status DC Albuterol/ Ipratropium (Duoneb Neb) 1 ampule Q6HR NEB NEB Last administered on 06/16/17 03:46; Start 06/12/17 at 10:00; Stop 06/16/17 at 07:10; Status DC Insulin Aspart (NovoLOG INJ) 10 units ONCE ONCE SQ Last administered on 10:00; Start 06/12/17 at 10:00; Stop 06/12/17 at 10:32; Status DC Erythromycin Ethylsuccinate (Ees) 250 mg Q8HR PO ; Start 06/16/17 at 02:00; Stop 06/16/17 at 02:00; Status DC Methylnaltrexone [place] (Relistor Inj) 12 mg ONCE ONCE SQ Last administered on 06/16/17 01:40; Start 06/16/17 at 02:00; Stop 06/16/17 at 02:01; Status DC Erythromycin (Erythromycin Ec) 250 mg Q8HR PO Last administered on 06/18/17 12:27; Start 06/16/17 at 02:00; Stop 06/18/17 at 22:53; Status DC Albuterol/ Ipratropium (Duoneb Neb) 1 ampule Q6HR NEB NEB Last administered on 06/20/17 08:04; Start 06/16/17 at 10:00; Stop 06/20/17 at 09:24; Status DC Erythromycin Ethylsuccinate (Ees 400 Mg/5 ml Liq) 250 mg Q8H PO Last administered on 06/19/17 01:19; Start 06/19/17 at 00:00; Stop 06/19/17 at 06 :54; Status DC Polyethylene Glycol (Miralax) 17 gm DAILY PO ; Start 06/19/17 at 09:00; Stop 06/23/17 at 06:47; Status DC Albuterol/ Ipratropium (Duoneb Neb) 1 ampule Q6HR NEB NEB Last administered on 06/24/17 08:30; Start 06/20/17 at 10:00; Stop 06/24/17 at 09:59; Status DC Hydralazine HCl (Apresoline Inj) 10 mg Q1H PRN IV PUSH SBP >160 Last administered on 07/10/17 13:51; Start 06/21/17 at 07:30; Stop 07/12/17 at 00: 26; Status DC Lisinopril (Prinivil) 20 mg Q12HR PO Last administered on 08/22/17 21:16; Start 06/21/17 at 09:00; Stop 08/23/17 at 07:26; Status DC Labetalol HCl (Trandate Inj) 10 mg Q1H PRN IV PUSH SBP>160, DBP>90, HR>65 Last administered on 07/08/17 05:02; Start 06/21/17 at 07:30; Stop 07/12/17 at 00: 26; Status DC Nitroglycerin (Nitroglycerin 2% Oint) 2 inch Q6H PRN TOPICAL SBP>160, DBP>90 Last administered on 06/30/17 14:37; Start 06/21/17 at 08:00 Piperacillin Sod/ Tazobactam Sod 100 ml @ 200 mls/hr Q6H IV Last administered on 06/29/17 02:07; Start 06/21/17 at 09:00; Stop 06/29/17 at 08:59; Status DC Pharmacy Profile Note 0 ml @ 0 mls/hr UNSCH OTHER ; Start 06/21/17 at 07:30; Stop 06/23/17 at 06:46; Status DC Guaifenesin (Robitussin Liq) 400 mg Q8HR PEG Last administered on 06/29/17 06 :02; Start 06/21/17 at 14:00; Stop 06/29/17 at 13:59; Status DC Sodium Chloride (Sodium Chloride 3% Neb) 2 ml Q6HR NEB NEB Last administered on 06/29/17 08:21; Start 06/21/17 at 10:00; Stop 06/29/17 at 09:59; Status DC Insulin Detemir (Levemir Inj) 10 units Q12H SQ Last administered on 07/19/17 08:39; Start 06/21/17 at 09:00; Stop 07/19/17 at 09:26; Status DC Vancomycin HCl 1000 mg/Sodium Chloride 250 ml @ 250 mls/hr ONCE ONCE IV Last administered on 06/21/17 11:50; Start 06/21/17 at 12:00; Stop 06/21/17 at 12 :59; Status DC Vancomycin HCl 750 mg/Sodium Chloride 257.5 ml @ 250 mls/hr Q12H IV Last administered on 06/23/17 00:02; Start 06/22/17 at 00:00; Stop 06/23/17 at 06 :46; Status DC Miscellaneous Information SPECIFIC LAB TO BE ROLF... ONCE ONCE .XX ; Start at 23:45; Stop 06/22/17 at 23:46; Status DC Miscellaneous Information SPECIFIC LAB TO BE ROLF... ONCE ONCE .XX ; Start at 11:45; Stop 06/23/17 at 11:46; Status DC Polyethylene Glycol (Miralax) 17 gm BID PEG Last administered on 07/02/17 08: 35; Start 06/23/17 at 09:00; Stop 07/09/17 at 08:04; Status DC Albuterol/ Ipratropium (Duoneb Neb) 1 ampule Q6HR NEB NEB Last administered on 07/08/17 10:22; Start 07/04/17 at 10:00; Stop 07/08/17 at 09:59; Status DC Polyethylene Glycol (Miralax) 17 gm DAILY PEG Last administered on 10/02/17 07: 59; Start 07/09/17 at 09:00; Stop 10/03/17 at 11:56; Status DC Clonidine (Catapres) 0.1 mg Q6H PRN PO SBP >160 Last administered on 16:22; Start 07/12/17 at 00:30; Stop 10/03/17 at 11:55; Status DC Heparin Sodium (Porcine) (Heparin Inj) 5,000 units Q8HR SQ Last administered on 11/24/17 13:30; Start 07/15/17 at 08:00 Sodium Chloride 1,000 ml @ 42 mls/hr [id number] IV Last administered on 15:15; Start 07/14/17 at 14:45; Stop 07/15/17 at 08:00; Status DC Albuterol/ Ipratropium (Duoneb Neb) 2.5 ampule Q6HR NEB NEB ; Start 07/16/17 at 16:45; Stop 07/16/17 at 19:01; Status DC Hyoscyamine Sulfate (Levsin Liq) 0.125 mg BID PEG ; Start 07/16/17 at 21:00; Stop 07/16/17 at 21:00; Status DC Albuterol Sulfate (Albuterol Neb) 2.5 mg Q6HR NEB INH Last administered on 19:49; Start 07/16/17 at 22:00; Stop 07/20/17 at 21:59; Status DC Acetylcysteine (Mucomyst 20% Neb) 2 ml Q8HR NEB PRN NEB SECRETIONS; Start at 08:00; Stop 07/17/17 at 08:00; Status DC Acetylcysteine (Mucomyst 20% Neb) 2 ml Q8HR NEB PRN NEB SECRETIONS Last administered on 07/21/17 03:31; Start 07/17/17 at 08:00; Stop 07/21/17 at 07 :59; Status DC Trimethoprim/ Sulfamethoxazole (Bactrim 800-160 Mg/20 ml Liq) 20 ml Q12H PO ; Start 07/17/17 at 09:45; Stop 07/17/17 at 09:50; Status DC Trimethoprim/ Sulfamethoxazole (Bactrim 800-160 Mg/20 ml Liq) 20 ml Q12HR PEG Last administered on 07/19/17 21:27; Start 07/17/17 at 11:00; Stop 07/19/17 at 21:01; Status DC Insulin Detemir (Levemir Inj) 15 units Q12H SQ Last administered on 07/20/17 08:00; Start 07/19/17 at 21:00; Stop 07/20/17 at 08:26; Status DC Insulin Detemir (Levemir Inj) 18 units Q12H SQ Last administered on 07/22/17 13:46; Start 07/20/17 at 21:00; Stop 07/22/17 at 14:39; Status DC Trimethoprim/ Sulfamethoxazole (Bactrim 800-160 Mg/20 ml Liq) 20 ml Q12HR PEG Last administered on 07/21/17 08:12; Start 07/20/17 at 15:00; Stop 07/21/17 at 13:16; Status DC Albuterol/ Ipratropium (Duoneb Neb) 1 ampule ONCE ONCE NEB Last administered on 07/21/17 03:30; Start 07/21/17 at 03:30; Stop 07/21/17 at 03:31; Status DC Albuterol/ Ipratropium (Duoneb Neb) 1 ampule ONCE PRN NEB SHORTNESS OF BREATH; Start 07/21/17 at 04:15; Stop 07/21/17 at 07:30; Status DC Albuterol/ Ipratropium (Duoneb Neb) 1 ampule Q6HR NEB NEB Last administered on 07/25/17 09:05; Start 07/21/17 at 10:00; Stop 07/25/17 at 09:59; Status DC Acetylcysteine (Mucomyst 20% Neb) 2 ml Q8HR NEB PRN NEB SECRETIONS; Start at 07:00; Stop 07/21/17 at 07:24; Status DC Piperacillin Sod/ Tazobactam Sod 100 ml @ 200 mls/hr Q6H IV Last administered on 07/25/17 04:56; Start 07/21/17 at 10:00; Stop 07/25/17 at 07:50; Status DC Azithromycin 500 mg/Sodium Chloride 250 ml @ 250 mls/hr Q24H IV Last administered on 07/25/17 10:58; Start 07/21/17 at 11:00; Stop 07/25/17 at 13 :36; Status DC Insulin Aspart (NovoLOG SUPPLEMENTAL SCALE) 1 Q6HR SQ Last administered on at 06:47; Start 07/21/17 at 18:00; Stop 10/08/17 at 09:45; Status DC Insulin Detemir (Levemir Inj) 15 units Q12H SQ Last administered on 07/26/17 23:10; Start 07/22/17 at 21:00; Stop 07/27/17 at 09:00; Status DC Ceftolozane/ Tazobactam 1500 mg/Sodium Chloride 100 ml @ 100 mls/hr Q8H IV Last administered on 08/06/17 08:25; Start 07/25/17 at 09:00; Stop 08/06/17 at 12:58; Status DC Fluconazole/ Sodium Chloride 100 ml @ 100 mls/hr ONCE ONCE IV Last administered on 07/26/17 17:00; Start 07/26/17 at 17:00; Stop 07/26/17 at 17 :59; Status DC Insulin Detemir (Levemir Inj) 7 units Q12HR SQ Last administered on 09/14/17at 07:32; Start 07/27/17 at 09:00; Stop 09/14/17 at 15:42; Status DC Furosemide (Lasix Liq) 40 mg ONCE ONCE NG Last administered on 07/29/17 17: 29; Start 07/29/17 at 16:00; Stop 07/29/17 at 16:02; Status DC Lactated Ringer's 1,000 ml @ 30 mls/hr Q24H PRN IV SEE LABEL COMMENTS; Start 08/03/17 at 06:30; Stop 08/06/17 at 06:29; Status DC Lidocaine/ Epinephrine (Xylocaine-Epi 1%-1:100,000 Inj) 20 ml STK-MED ONCE .ROUTE Last administered on 08/05/17 17:58; Start 08/05/17 at 17:58; Stop 08/05/17 at 17:59; Status DC Colistin Sulfate (Coly-Mycin M Neb) 75 mg Q8HR NEB NEB Last administered on 08:25; Start 08/06/17 at 16:00; Stop 08/12/17 at 15:59; Status DC Furosemide (Lasix Liq) 40 mg ONCE ONCE NG Last administered on 08/08/17 12: 54; Start 08/08/17 at 12:15; Stop 08/08/17 at 12:16; Status DC Albuterol/ Ipratropium (Duoneb Neb) 1 ampule Q6HR NEB PRN NEB WHEEZING Last administered on 10/16/17 07:17; Start 08/10/17 at 14:00; Stop 10/25/17 at 08: 28; Status DC Lisinopril (Prinivil) 30 mg Q12HR PO Last administered on 08/24/17 21:00; Start 08/23/17 at 09:00; Stop 08/25/17 at 07:46; Status DC Lisinopril (Prinivil) 40 mg Q12HR PO Last administered on 09/15/17at 20:54; Start 08/25/17 at 09:00; Stop 09/15/17 at 22:16; Status DC Amlodipine Besylate (Norvasc) 5 mg DAILY PO Last administered on 09/01/17at 09:24 ; Start 08/31/17 at 09:00; Stop 09/02/17 at 06:48; Status DC Amlodipine Besylate (Norvasc) 10 mg DAILY PO Last administered on 10/02/17at 08: 00; Start 09/02/17 at 09:00; Stop 10/03/17 at 11:55; Status DC Metoprolol Tartrate (Lopressor) 12.5 mg Q12HR PO Last administered on 09/06/17at 08:46; Start 09/05/17 at 21:00; Stop 10/03/17 at 11:55; Status DC Miscellaneous (Pill Splitter) 1 ea UNSCH PRN OTHER SEE LABEL COMMENTS; Start at 11:00 Trimethoprim/ Sulfamethoxazole (Bactrim 800-160 Mg/20 ml Liq) 20 ml Q12H PEG ; Start 09/09/17 at 20:00; Stop 09/09/17 at 20:00; Status DC Trimethoprim/ Sulfamethoxazole (Bactrim Ds 800-160 Mg) 1 tab Q12HR PEG Last administered on 09/29/17at 09:36; Start 09/09/17 at 21:00; Stop 09/29/17 at 22:01 ; Status DC Insulin Detemir (Levemir Inj) 12 units Q12HR SQ Last administered on 09/20/17at 20:49; Start 09/14/17 at 21:00; Stop 09/21/17 at 08:28; Status DC Lisinopril (Prinivil) 40 mg DAILY PO Last administered on 09/19/17at 09:39; Start 09/16/17 at 09:00; Stop 09/20/17 at 17:11; Status DC Sodium Polystyrene Sulfonate (Kayexalate Liq) 15 gm ONCE ONCE PO Last administered on 09/16/17at 11:01; Start 09/16/17 at 10:45; Stop 09/16/17 at 10:46 ; Status DC Acetaminophen (Tylenol) 500 mg Q6H PRN PEG Fever > 100.0F Last administered on 09/16/17at 16:36; Start 09/16/17 at 16:15; Stop 10/26/17 at 06:36; Status DC Dextrose 1,000 ml @ 75 mls/hr [id number] IV Last administered on 09/20/17at 11:09 ; Start 09/18/17 at 15:30; Stop 09/20/17 at 17:11; Status DC Lisinopril (Prinivil) 20 mg DAILY PO ; Start 09/21/17 at 09:00; Stop 09/21/17 at 23:55; Status DC Metoclopramide HCl (Reglan Inj) 10 mg ONCE ONCE IV PUSH Last administered on at 03:37; Start 09/21/17 at 03:15; Stop 09/21/17 at 03:16; Status DC Insulin Detemir (Levemir Inj) 12 units HS SQ Last administered on 09/26/17at 21: 00; Start 09/21/17 at 21:00; Stop 09/27/17 at 17:31; Status DC Calcium Gluconate 1 gm/Dextrose 110 ml @ 110 mls/hr ONCE ONCE IV Last administered on 09/21/17at 11:43; Start 09/21/17 at 11:15; Stop 09/21/17 at 12:14 ; Status DC Sodium Polystyrene Sulfonate (Kayexalate Liq) 15 gm QID PEG Last administered on 09/22/17at 09:30; Start 09/21/17 at 13:00; Stop 09/22/17 at 09:02; Status DC Insulin Human Regular (NovoLIN R INJ) 10 units ONCE ONCE IV PUSH Last administered on 09/21/17at 11:42; Start 09/21/17 at 11:30; Stop 09/21/17 at 11:31 ; Status DC Dextrose (D50w (Vial) Inj) 50 ml ONCE ONCE IV PUSH Last administered on at 11:42; Start 09/21/17 at 11:30; Stop 09/21/17 at 11:31; Status DC Albuterol Sulfate (Albuterol Concentrated Neb) 10 mg ONCE ONCE INH Last administered on 09/21/17at 11:30; Start 09/21/17 at 11:30; Stop 09/21/17 at 11:31 ; Status DC Sodium Chloride 500 ml @ 100 mls/hr Q5H IV Last administered on 09/21/17at 13: 38; Start 09/21/17 at 13:00; Stop 09/21/17 at 17:59; Status DC Sodium Chloride 1,000 ml @ 42 mls/hr [id number] IV Last administered on at 08:34; Start 09/21/17 at 21:00; Stop 09/24/17 at 08:24; Status DC Hydralazine HCl (Apresoline) 10 mg Q8HR PEG Last administered on 11/24/17at 13: 30; Start 09/24/17 at 14:00 Hydralazine HCl (Apresoline) 10 mg ONCE ONCE PEG Last administered on at 11:49; Start 09/24/17 at 09:00; Stop 09/24/17 at 09:01; Status DC Cefepime HCl 2000 mg/Sodium Chloride 100 ml @ 200 mls/hr Q8H IV Last administered on 09/29/17at 05:35; Start 09/25/17 at 12:00; Stop 09/29/17 at 08:46 ; Status DC Sodium Polystyrene Sulfonate (Kayexalate Liq) 15 gm ONCE ONCE RECTAL Last administered on 09/26/17at 10:51; Start 09/26/17 at 09:15; Stop 09/26/17 at 09:16 ; Status DC Sodium Polystyrene Sulfonate (Kayexalate Liq) 15 gm ONCE ONCE PEG Last administered on 09/27/17at 18:11; Start 09/27/17 at 17:15; Stop 09/27/17 at 17:16 ; Status DC Insulin Detemir (Levemir Inj) 10 units BID SQ Last administered on 09/29/17at 09 :37; Start 09/27/17 at 21:00; Stop 09/29/17 at 15:14; Status DC Doxazosin Mesylate (Cardura) 1 mg DAILY PO Last administered on 10/02/17at 07:59 ; Start 09/28/17 at 10:00; Stop 10/03/17 at 11:55; Status DC Ceftolozane/ Tazobactam 1500 mg/Sodium Chloride 100 ml @ 100 mls/hr Q8H IV Last administered on 09/30/17at 01:51; Start 09/29/17 at 10:00; Stop 09/30/17 at 10:38; Status DC Lactobacillus Acidophilus (Lactinex) 1 tab Q12HR PO Last administered on at 09:08; Start 09/29/17 at 21:00; Stop 10/03/17 at 11:55; Status DC Insulin Human NPH (NovoLIN N INJ) 7 units TID SQ Last administered on at 18:16; Start 09/29/17 at 18:00; Stop 10/01/17 at 19:07; Status DC Acetylcysteine (Mucomyst 10% Neb) 2 ml Q6HR NEB NEB ; Start 09/29/17 at 16:00; Stop 09/29/17 at 16:21; Status DC Acetylcysteine (Mucomyst 10% Neb) 2 ml Q6HR NEB NEB Last administered on at 08:30; Start 09/29/17 at 14:30; Stop 10/03/17 at 14:29; Status DC Metoclopramide HCl (Reglan Inj) 10 mg ONCE ONCE IV PUSH Last administered on at 22:11; Start 09/29/17 at 21:30; Stop 09/29/17 at 21:31; Status DC Trimethoprim/ Sulfamethoxazole (Bactrim 800-160 Mg/20 ml Liq) 20 ml BID PEG Last administered on 10/03/17 09:08; Start 09/29/17 at 22:02; Stop 10/03/17 at 18 :48; Status DC Colistin Sulfate (Coly-Mycin M Neb) 75 mg Q8HR NEB NEB Last administered on at 07:29; Start 09/30/17 at 16:00; Stop 10/21/17 at 15:59; Status DC Insulin Human NPH (NovoLIN N INJ) 10 units TID SQ Last administered on at 18:43; Start 10/02/17 at 09:00; Stop 10/07/17 at 12:30; Status DC Sodium Polystyrene Sulfonate (Kayexalate Liq) 15 gm BID PO Last administered on 10/03/17at 10:09; Start 10/03/17 at 09:00; Stop 10/03/17 at 11:55; Status DC Sodium Chloride 1,000 ml @ 100 mls/hr Q10H IV Last administered on 10/03/17 20 :26; Start 10/03/17 at 08:30; Stop 10/03/17 at 22:36; Status DC Levofloxacin/ Dextrose 100 ml @ 100 mls/hr Q24H IV Last administered on at 11:46; Start 10/03/17 at 10:00; Stop 10/03/17 at 20:03; Status DC Amlodipine Besylate (Norvasc) 10 mg DAILY PEG Last administered on 11/24/17at 08 :46; Start 10/04/17 at 09:00 Calcium/Vitamin D (Oscal-D 250-125) 250 mg TID PEG Last administered on at 13:31; Start 10/03/17 at 13:00 Cholecalciferol (Vitamin D3) 5,000 units DAILY PEG Last administered on at 08:46; Start 10/04/17 at 09:00 Clonidine (Catapres) 0.1 mg Q6H PRN PEG SBP >160 Last administered on 10/08/17 09:03; Start 10/03/17 at 12:30 Doxazosin Mesylate (Cardura) 1 mg DAILY PEG Last administered on 11/18/17at 09: 04; Start 10/04/17 at 09:00; Stop 11/22/17 at 17:42; Status DC Lactobacillus Acidophilus (Lactinex) 1 tab Q12HR PEG Last administered on at 08:46; Start 10/03/17 at 21:00 Metoprolol Tartrate (Lopressor) 12.5 mg Q12HR PEG Last administered on 19:28; Start 10/03/17 at 21:00; Stop 10/26/17 at 08:47; Status DC Sodium Polystyrene Sulfonate (Kayexalate Liq) 15 gm BID PEG Last administered on 10/03/17 21:00; Start 10/03/17 at 21:00; Stop 10/05/17 at 14:49; Status DC Polyethylene Glycol (Miralax) 17 gm DAILY PRN PEG Constipation; Start 10/03/17 at 12:00 Protein (Beneprotein Powder) 1 pack TID PRN G-TUBE Constipation; Start 10/03/17 at 12:00 Albuterol Sulfate (Albuterol Neb) 2.5 mg Q2HR NEB PRN NEB WHEEZING Last administered on 10/19/17 22:09; Start 10/03/17 at 21:45 Dextrose 1,000 ml @ 30 mls/hr Q24H IV ; Start 10/03/17 at 22:45; Status Cancel Dextrose (D50w (Vial) Inj) 25 ml ONCE ONCE IV PUSH Last administered on 22:42; Start 10/03/17 at 22:45; Stop 10/03/17 at 22:46; Status DC Furosemide (Lasix Inj) 40 mg ONCE ONCE IV PUSH Last administered on 10/03/17 22:46; Start 10/03/17 at 22:45; Stop 10/03/17 at 22:46; Status DC Dextrose 500 ml @ 10 mls/hr Q24H IV Last administered on 10/04/17at 15:49; Start 10/03/17 at 23:00; Stop 10/05/17 at 14:49; Status DC Fentanyl Citrate (fentaNYL INJ) 100 mcg STK-MED ONCE .ROUTE ; Start 10/03/17 at 22:47; Stop 10/03/17 at 22:48; Status DC Fentanyl Citrate (fentaNYL INJ) 100 mcg NOW ONCE IV PUSH ; Start 10/03/17 at 23: 00; Stop 10/03/17 at 23:01; Status DC Fentanyl Citrate (fentaNYL INJ) 50 mcg ONCE ONCE IV PUSH Last administered on 10/03/17at 23:00; Start 10/03/17 at 23:00; Stop 10/03/17 at 23:10; Status DC Fentanyl Citrate (fentaNYL INJ) 50 mcg Q1H PRN IV PUSH SEDATION; Start 10/03/17 at 23:00; Stop 10/29/17 at 10:46; Status DC Chlorhexidine Gluconate (Peridex 0.12% Liq) 15 ml BID@08,20 MT Last administered on 10/31/17at 21:41; Start 10/04/17 at 08:00; Stop 11/01/17 at 11:43; Status DC Furosemide (Lasix Inj) 40 mg ONCE ONCE IV PUSH Last administered on 10/04/17at 05:52; Start 10/04/17 at 05:00; Stop 10/04/17 at 05:01; Status DC Furosemide (Lasix Inj) 40 mg Q6HR IV PUSH Last administered on 10/06/17at 05:28; Start 10/04/17 at 12:00; Stop 10/06/17 at 11:00; Status DC Insulin Human NPH (NovoLIN N INJ) 5 units BID@08,17 SQ Last administered on 10/10at 08:05; Start 10/07/17 at 17:00; Stop 10/10/17 at 11:33; Status DC Insulin Detemir (Levemir Inj) 7 units Q12H SQ Last administered on 10/25/17at 23 :55; Start 10/08/17 at 12:00; Stop 10/26/17 at 06:36; Status DC Dextrose (D50w (Vial) Inj) 50 ml UNSCH PRN IV PUSH HYPOGLYCEMIA-SEE COMMENTS Last administered on 10/28/17at 17:42; Start 10/08/17 at 09:45; Stop 11/04/17 at 12 :34; Status DC Glucagon (Glucagon Inj) 1 mg UNSCH PRN OTHER HYPOGLYCEMIA-SEE COMMENTS Last administered on 10/14/17at 00:45; Start 10/08/17 at 09:45; Stop 11/04/17 at 12:34; Status DC Insulin Human Regular (NovoLIN R SUPPLEMENTAL SCALE) 1 Q6HR SQ Last administered on 11/04/17at 06:00; Start 10/08/17 at 12:00; Stop 11/04/17 at 12:27; Status DC Water (Free Water) 250 ml Q8HR G-TUBE Last administered on 10/20/17at 05:20; Start 10/18/17 at 14:00; Stop 10/20/17 at 10:15; Status DC Water (Free Water) VOLUME OF WATER: ( 200 ) ML Q6HR G-TUBE Last administered on 10/27/17at 05:49; Start 10/20/17 at 12:00; Stop 10/27/17 at 10:02; Status DC Albuterol/ Ipratropium (Duoneb Neb) 1 ampule Q6HR NEB NEB Last administered on 10/29/17at 08:34; Start 10/25/17 at 10:00; Stop 10/29/17 at 09:59; Status DC Insulin Detemir (Levemir Inj) 8 units Q12H SQ Last administered on 11/24/17at 12 :10; Start 10/26/17 at 12:00 Acetaminophen (Tylenol 650 Mg/ 20 ml Liq) 650 mg Q6H PRN PEG fever; Start 10/26 at 06:45 Oxycodone HCl (Roxicodone Intensol Liq) 5 mg Q6H PRN PO pain 6-10; Start at 11:00 Iohexol (Omnipaque 350 Inj) 75 ml STK-MED ONCE IVCONTRAST Last administered on 11/01/17at 16:59; Start 11/01/17 at 16:59; Stop 11/01/17 at 17:00; Status DC Dextrose (D50w (Vial) Inj) 50 ml UNSCH PRN IV PUSH HYPOGLYCEMIA-SEE COMMENTS; Start 11/04/17 at 12:30 Glucagon (Glucagon Inj) 1 mg UNSCH PRN OTHER HYPOGLYCEMIA-SEE COMMENTS; Start 11/04/17 at 12:30 Insulin Human Regular (NovoLIN R SUPPLEMENTAL SCALE) 1 Q6H SQ Last administered on 11/24/17at 12:10; Start 11/04/17 at 12:30 Dextrose (D50w (Vial) Inj) 25 ml ONCE ONCE IV PUSH Last administered on at 12:54; Start 11/04/17 at 12:30; Stop 11/04/17 at 12:35; Status DC Metoclopramide HCl (Reglan Inj) 10 mg Q8HR IV PUSH Last administered on at 05:41; Start 11/05/17 at 22:00; Stop 11/07/17 at 13:32; Status DC Amoxicillin/ Clavulanate Potassium (Augmentin 600 Mg/5 ml Liq) 600 mg Q12H PO Last administered on 11/13/17 23:56; Start 11/07/17 at 12:00; Stop 11/14/17 at 11:59; Status DC Metoclopramide HCl (Reglan Liq) 10 mg Q8HR PO Last administered on 11/18/17 14:08; Start 11/07/17 at 14:30; Status Future Hold Albuterol/ Ipratropium (Duoneb Neb) 1 ampule Q6HR NEB NEB Last administered on 11/12/17 09:08; Start 11/08/17 at 10:30; Stop 11/12/17 at 10:29; Status DC Cholestyramine Resin (Questran Light Pkt) 4 gm BID PRN PEG DIARRHEA Last administered on 11/19/17at 13:13; Start 11/12/17 at 13:30 Furosemide (Lasix Inj) 20 mg BID@ IV PUSH Last administered on 11/14/17at 08:32; Start 11/13/17 at 17:00; Stop 11/14/17 at 14:49; Status DC Furosemide (Lasix Inj) 20 mg DAILY IV PUSH Last administered on 11/15/17at 09:00 ; Start 11/15/17 at 09:00; Stop 11/16/17 at 08:59; Status DC Sodium Chloride (NS Flush) 2 ml BID IV FLUSH ; Start 11/16/17 at 10:45; Status Cancel Sodium Chloride (NS Flush) 2 ml BID IV FLUSH Last administered on 11/21/17at 09: 00; Start 11/16/17 at 21:00; Stop 11/21/17 at 20:44; Status DC Albuterol Sulfate (Proventil) 2 mg ONCE ONCE PO Last administered on at 17:16; Start 11/18/17 at 15:30; Stop 11/18/17 at 15:31; Status DC Sodium Chloride 250 ml @ 250 mls/hr BOLUS ONCE IV Last administered on at 15:26; Start 11/18/17 at 14:30; Stop 11/18/17 at 15:29; Status DC Insulin Human Regular (NovoLIN R INJ) 10 units ONCE ONCE SQ Last administered on 11/18/17at 18:23; Start 11/18/17 at 18:00; Stop 11/18/17 at 18:18; Status DC Dextrose (D50w (Syr) Inj) 12.5 ml ONCE ONCE IV PUSH Last administered on at 18:22; Start 11/18/17 at 18:00; Stop 11/18/17 at 18:18; Status DC Furosemide (Lasix) 20 mg DAILY PO Last administered on 11/24/17at 08:46; Start 11/20/17 at 09:00 Lisinopril (Prinivil) 5 mg ONCE ONCE PEG Last administered on 11/22/17at 17:56 ; Start 11/22/17 at 17:45; Stop 11/22/17 at 17:49; Status DC Lisinopril (Prinivil) 5 mg DAILY PEG Last administered on 11/24/17at 08:46; Start 11/23/17 at 09:00 A/P Problem List: (1) Acute ischemic left middle cerebral artery (MCA) stroke ICD Code: I63.512 - Cerebral infarction due to unspecified occlusion or stenosis of left middle cerebral artery Status: Acute (2) Acute respiratory failure ICD Code: J96.00 - Acute respiratory failure, unspecified whether with hypoxia or hypercapnia (3) Right hemiplegia ICD Code: G81.91 - Hemiplegia, unspecified affecting right dominant side Status: Acute (4) Sacral decubitus ulcer ICD Code: L89.159 - Pressure ulcer of sacral region, unspecified stage Status: Chronic (5) HCAP (healthcare-associated pneumonia) ICD Code: J18.9 - Pneumonia, unspecified organism Status: Resolved (6) 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 She underwent ORIF on 04/21/17 and on 04/24 a stroke alert was called as she was found to have right hemiparesis with left gaze. She has a poor prognosis based on her lack of overall recovery over the last 6+ months. Bilateral hallux ulcers -Wound care following -Monitor Bradycardia -New onset -Check EKG, appears junctional 43HR. Compared to previous EKG it appears to be almost the same however, lower HR is concerning. -Cardiology consulted, avoid AV du blocking agents, no further intervention per cardiology, signed off -Hold medications that can affect heart rate including Reglan, bp meds. D/C Cardura. -Monitor for trach plugging. Hypertension / CHF, compensated Amlodipine 10 mg po daily,hydralazine 10 mg per per peg q8 hours. D/C Cardura. Start Lisinopril 5mg per peg daily. Monitor and adjust antihypertensive management as indicated. Clonidine 0.1 mg q6h prn - hold Echo 10/06/17 LVSF EF = 25-30%. Patient should be started on MARIA/ARB for EF of 25-30%, also need to start a low-dose beta-selena. Left MCA stroke -5.5 mm of [id number] subfalcine herniation, diagnosed 04/24. Was not a candidate for thrombolysis at that time. -Increasing edema seen on repeat CT 04/28 with a reduction in midline shift on another repeat on 04/30 -Neurologic condition remained poor and she underwent trach 05/15/17 and PEG -Persistent right-sided hemiparesis. -Previously seen by neurology, signed off -Previously seen by neurosurgery, signed off -Continue daily ASA -PT UTI Urinary retention Urine culture grew Aerococcus. Completed course of Augmentin. Leavitt in place draining yellow urine Chronic Tracheostomy /respiratory failure 10/22/2017 -Pulmonary toilet, trach care -Duo nebs as needed -Pulm following, appreciate assistance -Chest x-ray 11/13/17 showed pulmonary edema continue on Lasix Large left pneumothorax -Chest tube placed 05/07, discontinued 05/12/17 -Resolved Hepatitis C -LFTs normalized -Negative genotype/viral load Diabetes mellitus -SSI Novolin R High-dose scale -Levemir insulin 8u Q12 -Monitor Accu-Cheks Tube Feeds, PEG Loose Stools -patient has been checked for Cdiff on multiple occasions, most recently 11/04 Cdiff negative -already on lactinex bid -Questran bid and monitor for improvement, consider increasing dose as needed -This is possibly related to tube feedings. Will ask dietary to consider tube feeds at night only. Anal Fissure continue wound care DVT prophylaxis heparin Discharge Planning Aggressive therapy, full code per palliative. Needs placement Problem Qualifiers (1) Acute respiratory failure: Qualified Codes: J96.00 - Acute respiratory failure, unspecified whether with hypoxia or hypercapnia (2) Sacral decubitus ulcer: Qualified Codes: L89.152 - Pressure ulcer of sacral region, stage 2 (3) Chronic respiratory failure: Qualified Codes: J96.11 - Chronic respiratory failure with hypoxia Ricardo Shafer DO Nov 24, 2017 16:22
--- NOTE | 2017-11-24 21:02 | HHI.PR ---
Subjective Remarks No events overnight. Patient is on TP's with 40% FIO2. . Tolerating tube feeds. Awake, looks around Tolerates TF No fever Awake, looks around. Objective Vital Signs Vital Signs Date Time Temp Pulse Resp B/P (MAP) Pulse Ox O2 Delivery O2 Flow Rate FiO2 11/24/17 20:20 97 T-piece 28 11/24/17 16:00 97.6 72 20 155/78 (103) 98 11/24/17 12:00 98.6 65 20 152/72 (98) 100 11/24/17 08:00 98.3 75 24 155/74 (101) 98 11/24/17 07:28 98 T-piece 28 11/24/17 07:00 98 Trach Collar 6.00 28 11/24/17 04:00 98.3 58 18 158/83 (108) 97 11/24/17 00:00 98.5 77 20 137/71 (93) 97 11/23/17 22:26 99 T-piece 6.00 28 I/O 11/23/17 11/23/17 11/23/17 11/24/17 11/24/17 11/24/17 07:00 15:00 23:00 07:00 15:00 23:00 Intake Total 900 ml 695 ml 745 ml 750 ml Output Total 900 ml 1000 ml 750 ml 800 ml Balance 0 ml -305 ml -5 ml -50 ml Tube Feeding 480 ml 495 ml 505 ml 525 ml Other 420 ml 200 ml 240 ml 225 ml Output Urine Total 900 ml 1000 ml 750 ml 800 ml # Bowel Movements 0 2 1 1 Result Diagram: 11/22/17 1154 11/22/17 1154 Objective Remarks GENERAL: Elderly female,NAD SKIN: Warm and dry. HEAD: Normocephalic. EYES: No scleral icterus. No injection or drainage. NECK: Supple, trachea midline. No JVD or lymphadenopathy. + trach CARDIOVASCULAR: Regular rate and rhythm without murmurs, gallops, or rubs. RESPIRATORY: Breath sounds equal bilaterally. No accessory muscle use. GASTROINTESTINAL: Abdomen soft, non-tender, nondistended. MUSCULOSKELETAL: No cyanosis, or edema. BACK: Nontender without obvious deformity. No CVA tenderness. A/P Assessment and Plan Chronic resp failure, ,S/P Trach CVA Pneumonia Calcified Granuloma LLL Pseudomonas Tracheobronchitis, PLAN: Continue with TP's, keep sats >92% Bronchodilators, Pulm toilet, trach care CT chest 11/01: No PE,adenopathy in the right paratracheal, subcarinal and hilar regions with numerous prominent lymph nodes seen. Continue with abx ( Augmentin)monitor for signs of infections ( fever, WBC) follow up on urine cx Continue with tube feeds- Glucerna 1.5 @ 45ml/hr GI/DVT prophylaxis Continue treatment plan. LAI RN at Chris Rizo MD Nov 24, 2017 21:02
[2017-11-25] VITALS (8 sets, daily range): BP systolic 112–156; BP diastolic 43–68; PULSE 60–70; RESP 14–24; TEMP 98.1–98.8; O2SAT 94–98
[2017-11-25] MEDS: INSULIN NovoLIN REGULAR SUPPLEMENTAL SCALE SQ SCH ×3 (00:22→17:11)
[2017-11-25] MEDS: INSULIN DETEMIR 100 UNITS/ML VIAL SQ SCH ×2 (01:07→12:00)
[2017-11-25] MEDS: hydrALAZINE HCL 10 MG TAB PEG SCH ×3 (05:35→22:39)
[2017-11-25] MEDS: HEPARIN SODIUM - SQ 10,000 UNITS/ML VIAL SQ SCH ×3 (05:36→22:39)
[2017-11-25] MEDS: ARTIFICIAL TEARS OPTH SOLN 15 ML BTL EACH EYE SCH ×3 (05:36→22:40)
[2017-11-25] MEDS: LANSOPRAZOLE SOLUTAB 30 MG TAB NG SCH (09:00)
[2017-11-25] MEDS: LACTOBACILLUS ACIDOPHILUS TAB PEG SCH ×2 (09:16→22:39)
[2017-11-25] MEDS: CALCIUM/VITAMIN D 250 MG/125 U TAB PEG SCH ×3 (09:16→17:11)
[2017-11-25] MEDS: LISINOPRIL 5 MG TAB PEG SCH (09:16)
[2017-11-25] MEDS: ASPIRIN 325 MG TAB DOBHOFF SCH (09:16)
[2017-11-25] MEDS: CHOLECALCIFEROL (VIT D3) 5000 UNIT CAP PEG SCH (09:16)
[2017-11-25] MEDS: CHOLESTYRAMINE LIGHT 4 GM PACKAGE PEG PRN (09:59)
[2017-11-25] MEDS: FUROSEMIDE 20 MG TAB PO SCH (10:30)
[2017-11-25] MEDS: DIPHENOXYLATE/ATROPINE 2.5 MG/0.025 MG/5 ML CUP PO PRN (16:32)
--- NOTE | 2017-11-25 17:17 | HHI.PR ---
Subjective Remarks Had several episodes of diarrhea today, on Questran. No abdominal pain or vomiting. Afebrile. Objective Vitals Vital Signs Date Time Temp Pulse Resp B/P (MAP) Pulse Ox O2 Delivery O2 Flow Rate FiO2 11/25/17 12:00 98.8 70 24 156/55 (88) 98 11/25/17 08:30 97 T-piece 5.00 28 11/25/17 08:00 98.5 60 20 119/56 (77) 98 11/25/17 07:00 98 Trach Collar 6.00 28 11/25/17 04:00 98.6 66 18 121/58 (79) 98 11/25/17 00:00 98.2 66 18 150/68 (95) 98 11/24/17 21:00 97 Trach Collar 6.00 28 11/24/17 20:20 97 T-piece 28 11/24/17 20:00 97.8 75 18 148/85 (106) 97 I/O 11/24/17 11/24/17 11/24/17 11/25/17 11/25/17 11/25/17 07:00 15:00 23:00 07:00 15:00 23:00 Intake Total 745 ml 750 ml 1020 ml Output Total 750 ml 800 ml 650 ml Balance -5 ml -50 ml 370 ml Tube Feeding 505 ml 525 ml 540 ml Other 240 ml 225 ml 480 ml Output Urine Total 750 ml 800 ml 650 ml # Bowel Movements 1 1 2 Result Diagram: 11/22/17 1154 11/22/17 1154 Objective Remarks Not in distress, chronically ill, trach dependent It was equal reactive to light Regular rate and rhythm Bronchial breath sounds, no crackles, no wheezing. Abdomen soft, nontender, decondition in place with brown output Mild hand and lower extremity edema Awake, not alert, does not appear to be oriented. 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 Procedures PEG tube A/P Problem List: (1) Acute ischemic left middle cerebral artery (MCA) stroke ICD Code: I63.512 - Cerebral infarction due to unspecified occlusion or stenosis of left middle cerebral artery Status: Acute (2) Acute respiratory failure ICD Code: J96.00 - Acute respiratory failure, unspecified whether with hypoxia or hypercapnia (3) Right hemiplegia ICD Code: G81.91 - Hemiplegia, unspecified affecting right dominant side Status: Acute (4) Sacral decubitus ulcer ICD Code: L89.159 - Pressure ulcer of sacral region, unspecified stage Status: Chronic (5) HCAP (healthcare-associated pneumonia) ICD Code: J18.9 - Pneumonia, unspecified organism Status: Resolved (6) 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 She underwent ORIF on 04/21/17 and on 04/24 a stroke alert was called as she was found to have right hemiparesis with left gaze. She has a poor prognosis based on her lack of overall recovery over the last 6+ months. Patient has no acute issues, no change in care plan. Shortness of breath/desaturation secondary to pulmonary edema-chest x-ray done , personally reviewed, has evidence of pulmonary edema, continue Lasix, monitor BMP every few weeks. Urinary retention No leukocytosis U/A with large leuk esterase but many squamous cells Culture grew Aerococcus, finished Augmentin November 07 - November 14. Leavitt replaced Elevated D-dimer Ordered 10/31 for increasing FiO2 demand Since D-dimer elevated, CTA chest obtained to r/o PE which was negative Likely elevated in light of chronic illness RUE U/S negative for DVT - elevate R arm Left MCA stroke 5.5 mm of [id number] subfalcine herniation, diagnosed 04/24. Was not a candidate for thrombolysis at that time. Increasing edema seen on repeat CT 04/28 with a reduction in midline shift on another repeat on 04/30 Neurologic condition remained poor and she underwent trach 05/15/17 and PEG Persistent right-sided hemiparesis. Previously seen by neurology, signed off Previously seen by neurosurgery, signed off Continue daily ASA Hypertension / CHF Amlodipine 10 mg po daily, Doxazosin 1 mg peg daily, hydralazine 10 mg per per peg q8 hours. Clonidine 0.1 mg q6h prn Echo 10/06/17 LVSF EF = 25-30%. Chronic Tracheostomy /respiratory failure 10/22/2017 Pulmonary toilet, trach care Duo nebs as needed Pulm following, appreciate assistance Large left pneumothorax Resolved Chest tube placed 05/07, discontinued 05/12/17 Hepatitis C LFTs normalized Negative genotype/viral load Diabetes mellitus SSI Novolin R High-dose scale Levemir insulin 8u Q12 FEN PEG tube feeding with Glucerna 1.5 goal 45 cc/hr, per nutrition recommendations Loose Stools patient has been checked for Cdiff on multiple occasions, most recently 11/04 Cdiff negative already on lactinex bid Continue Questran, start Lomotil. Anal Fissure continue wound care DVT prophylaxis Heparin Discharge Planning Aggressive therapy, full code per palliative. Needs placement Problem Qualifiers (1) Acute respiratory failure: Qualified Codes: J96.00 - Acute respiratory failure, unspecified whether with hypoxia or hypercapnia (2) Sacral decubitus ulcer: Qualified Codes: L89.152 - Pressure ulcer of sacral region, stage 2 (3) Chronic respiratory failure: Qualified Codes: J96.11 - Chronic respiratory failure with hypoxia Roderick Turcios MD Nov 25, 2017 17:17
--- NOTE | 2017-11-25 19:52 | HHI.PR ---
Subjective Remarks No events overnight. Patient is on TP's with 40% FIO2. . Tolerating tube feeds. Awake, looks around Tolerates TF No fever Awake, looks around. Tries to pull trach Objective Vital Signs Vital Signs Date Time Temp Pulse Resp B/P (MAP) Pulse Ox O2 Delivery O2 Flow Rate FiO2 11/25/17 16:00 98.1 68 20 115/43 (67) 96 11/25/17 12:00 98.8 70 24 156/55 (88) 98 11/25/17 08:30 97 T-piece 5.00 28 11/25/17 08:00 98.5 60 20 119/56 (77) 98 11/25/17 07:00 98 Trach Collar 6.00 28 11/25/17 04:00 98.6 66 18 121/58 (79) 98 11/25/17 00:00 98.2 66 18 150/68 (95) 98 11/24/17 21:00 97 Trach Collar 6.00 28 11/24/17 20:20 97 T-piece 28 11/24/17 20:00 97.8 75 18 148/85 (106) 97 I/O 11/24/17 11/24/17 11/24/17 11/25/17 11/25/17 11/25/17 06:59 14:59 22:59 06:59 14:59 22:59 Intake Total 745 ml 750 ml 1020 ml 756 ml Output Total 750 ml 800 ml 650 ml 800 ml Balance -5 ml -50 ml 370 ml -44 ml Tube Feeding 505 ml 525 ml 540 ml 516 ml Other 240 ml 225 ml 480 ml 240 ml Output Urine Total 750 ml 800 ml 650 ml 800 ml # Bowel Movements 1 1 2 4 Result Diagram: 11/22/17 1154 11/22/17 1154 Objective Remarks GENERAL: Elderly female,NAD SKIN: Warm and dry. HEAD: Normocephalic. EYES: No scleral icterus. No injection or drainage. NECK: Supple, trachea midline. No JVD or lymphadenopathy. + trach CARDIOVASCULAR: Regular rate and rhythm without murmurs, gallops, or rubs. RESPIRATORY: Breath sounds equal bilaterally. No accessory muscle use. GASTROINTESTINAL: Abdomen soft, non-tender, nondistended. MUSCULOSKELETAL: No cyanosis, or edema. BACK: Nontender without obvious deformity. No CVA tenderness. A/P Assessment and Plan Chronic resp failure, ,S/P Trach CVA Pneumonia Calcified Granuloma LLL Pseudomonas Tracheobronchitis, PLAN: Continue with TP's, keep sats >92% Bronchodilators, Pulm toilet, trach care CT chest 11/01: No PE,adenopathy in the right paratracheal, subcarinal and hilar regions with numerous prominent lymph nodes seen. Continue with abx ( Augmentin)monitor for signs of infections ( fever, WBC) follow up on urine cx Continue with tube feeds- Glucerna 1.5 @ 45ml/hr GI/DVT prophylaxis Continue treatment plan. LAI RN at [facility] for safety Chris Rizo MD Nov 25, 2017 19:52
[2017-11-26] VITALS (8 sets, daily range): BP systolic 112–168; BP diastolic 36–91; PULSE 46–87; RESP 12–22; TEMP 97.3–98.6; O2SAT 92–98
[2017-11-26] MEDS: INSULIN NovoLIN REGULAR SUPPLEMENTAL SCALE SQ SCH ×4 (00:30→18:29)
[2017-11-26] MEDS: INSULIN DETEMIR 100 UNITS/ML VIAL SQ SCH ×2 (01:13→11:50)
[2017-11-26] MEDS: HEPARIN SODIUM - SQ 10,000 UNITS/ML VIAL SQ SCH ×3 (04:55→20:25)
[2017-11-26] MEDS: hydrALAZINE HCL 10 MG TAB PEG SCH ×3 (04:55→20:24)
[2017-11-26] MEDS: ARTIFICIAL TEARS OPTH SOLN 15 ML BTL EACH EYE SCH ×3 (06:00→20:24)
[2017-11-26] MEDS: CALCIUM/VITAMIN D 250 MG/125 U TAB PEG SCH ×3 (07:55→18:14)
[2017-11-26] MEDS: LISINOPRIL 5 MG TAB PEG SCH (07:55)
[2017-11-26] MEDS: FUROSEMIDE 20 MG TAB PO SCH (07:55)
[2017-11-26] MEDS: LACTOBACILLUS ACIDOPHILUS TAB PEG SCH ×2 (07:56→20:24)
[2017-11-26] MEDS: CHOLECALCIFEROL (VIT D3) 5000 UNIT CAP PEG SCH (07:56)
[2017-11-26] MEDS: ASPIRIN 325 MG TAB DOBHOFF SCH (07:56)
[2017-11-26] MEDS: LANSOPRAZOLE SOLUTAB 30 MG TAB NG SCH (07:56)
--- NOTE | 2017-11-26 13:32 | HHI.PR ---
Subjective Remarks No overnight events, stools are more formed, no more diarrhea today. Afebrile. Objective Vitals Vital Signs Date Time Temp Pulse Resp B/P (MAP) Pulse Ox O2 Delivery O2 Flow Rate FiO2 11/26/17 12:00 97.4 58 18 129/39 (69) 98 11/26/17 08:00 T-Piece 28 11/26/17 08:00 98.6 60 22 120/46 (70) 95 11/26/17 04:00 98.1 73 22 120/91 (101) 98 11/26/17 00:00 97.3 46 12 131/50 (77) 98 11/25/17 21:21 98 T-piece 6.00 28 11/25/17 20:00 98.3 67 14 112/45 (67) 94 11/25/17 19:15 T-Piece 5.00 11/25/17 16:00 98.1 68 20 115/43 (67) 96 I/O 11/25/17 11/25/17 11/25/17 11/26/17 11/26/17 11/26/17 07:00 15:00 23:00 07:00 15:00 23:00 Intake Total 1020 ml 756 ml 720 ml Output Total 650 ml 800 ml 550 ml Balance 370 ml -44 ml 170 ml Tube Feeding 540 ml 516 ml 480 ml Other 480 ml 240 ml 240 ml Output Urine Total 650 ml 800 ml 550 ml Bladder Scan Volume Amount 1000 ml # Bowel Movements 2 4 Result Diagram: 11/22/17 1154 11/22/17 1154 Objective Remarks Not in distress, chronically ill, trach dependent It was equal reactive to light Regular rate and rhythm Bronchial breath sounds, no crackles, no wheezing. Abdomen soft, nontender, Mild hand and lower extremity edema Awake, not alert, does not appear to be oriented. 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 Procedures PEG tube A/P Problem List: (1) Acute ischemic left middle cerebral artery (MCA) stroke ICD Code: I63.512 - Cerebral infarction due to unspecified occlusion or stenosis of left middle cerebral artery Status: Acute (2) Acute respiratory failure ICD Code: J96.00 - Acute respiratory failure, unspecified whether with hypoxia or hypercapnia (3) Right hemiplegia ICD Code: G81.91 - Hemiplegia, unspecified affecting right dominant side Status: Acute (4) Sacral decubitus ulcer ICD Code: L89.159 - Pressure ulcer of sacral region, unspecified stage Status: Chronic (5) HCAP (healthcare-associated pneumonia) ICD Code: J18.9 - Pneumonia, unspecified organism Status: Resolved (6) 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 She underwent ORIF on 04/21/17 and on 04/24 a stroke alert was called as she was found to have right hemiparesis with left gaze. She has a poor prognosis based on her lack of overall recovery over the last 6+ months. Patient has no acute issues, no change in care plan. Shortness of breath/desaturation secondary to pulmonary edema-chest x-ray done , personally reviewed, has evidence of pulmonary edema, continue Lasix, monitor BMP every few weeks. Urinary retention No leukocytosis U/A with large leuk esterase but many squamous cells Culture grew Aerococcus, finished Augmentin November 07 - November 14. Leavitt replaced Elevated D-dimer Ordered 10/31 for increasing FiO2 demand Since D-dimer elevated, CTA chest obtained to r/o PE which was negative Likely elevated in light of chronic illness RUE U/S negative for DVT - elevate R arm Left MCA stroke 5.5 mm of [id number] subfalcine herniation, diagnosed 04/24. Was not a candidate for thrombolysis at that time. Increasing edema seen on repeat CT 04/28 with a reduction in midline shift on another repeat on 04/30 Neurologic condition remained poor and she underwent trach 05/15/17 and PEG Persistent right-sided hemiparesis. Previously seen by neurology, signed off Previously seen by neurosurgery, signed off Continue daily ASA Hypertension / CHF Amlodipine 10 mg po daily, Doxazosin 1 mg peg daily, hydralazine 10 mg per per peg q8 hours. Clonidine 0.1 mg q6h prn Echo 10/06/17 LVSF EF = 25-30%. Chronic Tracheostomy /respiratory failure 10/22/2017 Pulmonary toilet, trach care Duo nebs as needed Pulm following, appreciate assistance Large left pneumothorax Resolved Chest tube placed 05/07, discontinued 05/12/17 Hepatitis C LFTs normalized Negative genotype/viral load Diabetes mellitus SSI Novolin R High-dose scale Levemir insulin 8u Q12 FEN PEG tube feeding with Glucerna 1.5 goal 45 cc/hr, per nutrition recommendations Loose Stools patient has been checked for Cdiff on multiple occasions, most recently 11/04 Cdiff negative already on lactinex bid Continue Questran, start Lomotil. Anal Fissure continue wound care DVT prophylaxis Heparin Discharge Planning Aggressive therapy, full code per palliative. Needs placement Problem Qualifiers (1) Acute respiratory failure: Qualified Codes: J96.00 - Acute respiratory failure, unspecified whether with hypoxia or hypercapnia (2) Sacral decubitus ulcer: Qualified Codes: L89.152 - Pressure ulcer of sacral region, stage 2 (3) Chronic respiratory failure: Qualified Codes: J96.11 - Chronic respiratory failure with hypoxia Roderick Turcios MD Nov 26, 2017 13:32
--- NOTE | 2017-11-26 21:36 | HHI.PR ---
Subjective Remarks No events overnight. Patient is on TP's with 40% FIO2. . Tolerating tube feeds. Awake, looks around Tolerates TF No fever Awake, looks around. Objective Vital Signs Vital Signs Date Time Temp Pulse Resp B/P (MAP) Pulse Ox O2 Delivery O2 Flow Rate FiO2 11/26/17 17:10 97 T-piece 6.00 28 11/26/17 16:00 97.4 62 18 122/47 (72) 97 11/26/17 12:00 97.4 58 18 129/39 (69) 98 11/26/17 08:00 T-Piece 28 11/26/17 08:00 98.6 60 22 120/46 (70) 95 11/26/17 04:00 98.1 73 22 120/91 (101) 98 11/26/17 00:00 97.3 46 12 131/50 (77) 98 I/O 11/25/17 11/25/17 11/25/17 11/26/17 11/26/17 11/26/17 07:00 15:00 23:00 07:00 15:00 23:00 Intake Total 1020 ml 756 ml 720 ml 832 ml Output Total 650 ml 800 ml 550 ml 750 ml Balance 370 ml -44 ml 170 ml 82 ml Tube Feeding 540 ml 516 ml 480 ml 592 ml Other 480 ml 240 ml 240 ml 240 ml Output Urine Total 650 ml 800 ml 550 ml 750 ml Bladder Scan Volume Amount 1000 ml # Bowel Movements 2 4 Result Diagram: 11/22/17 1154 11/22/17 1154 Objective Remarks GENERAL: Elderly female,NAD SKIN: Warm and dry. HEAD: Normocephalic. EYES: No scleral icterus. No injection or drainage. NECK: Supple, trachea midline. No JVD or lymphadenopathy. + trach CARDIOVASCULAR: Regular rate and rhythm without murmurs, gallops, or rubs. RESPIRATORY: Breath sounds equal bilaterally. No accessory muscle use. GASTROINTESTINAL: Abdomen soft, non-tender, nondistended. MUSCULOSKELETAL: No cyanosis, or edema. BACK: Nontender without obvious deformity. No CVA tenderness. A/P Assessment and Plan Chronic resp failure, ,S/P Trach CVA Pneumonia Calcified Granuloma LLL Pseudomonas Tracheobronchitis, PLAN: Continue with TP's, keep sats >92% Bronchodilators, Pulm toilet, trach care CT chest 11/01: No PE,adenopathy in the right paratracheal, subcarinal and hilar regions with numerous prominent lymph nodes seen. Continue with abx ( Augmentin)monitor for signs of infections ( fever, WBC) follow up on urine cx Continue with tube feeds- Glucerna 1.5 @ 45ml/hr GI/DVT prophylaxis Continue treatment plan. LAI RN at Chris Rizo MD Nov 26, 2017 21:36
[2017-11-27] VITALS (10 sets, daily range): BP systolic 107–167; BP diastolic 34–87; PULSE 47–84; RESP 14–20; TEMP 98–98.7; O2SAT 93–99
[2017-11-27] MEDS: INSULIN NovoLIN REGULAR SUPPLEMENTAL SCALE SQ SCH ×5 (00:15→23:23)
[2017-11-27] MEDS: cloNIDine HCL 0.1 MG TAB PEG PRN (00:23)
[2017-11-27] MEDS: INSULIN DETEMIR 100 UNITS/ML VIAL SQ SCH ×3 (00:23→23:23)
[2017-11-27] MEDS: hydrALAZINE HCL 10 MG TAB PEG SCH ×3 (07:01→20:44)
[2017-11-27] MEDS: HEPARIN SODIUM - SQ 10,000 UNITS/ML VIAL SQ SCH ×3 (07:01→20:44)
[2017-11-27] MEDS: ARTIFICIAL TEARS OPTH SOLN 15 ML BTL EACH EYE SCH ×3 (07:02→20:45)
[2017-11-27] MEDS: LACTOBACILLUS ACIDOPHILUS TAB PEG SCH ×2 (08:08→20:44)
[2017-11-27] MEDS: LANSOPRAZOLE SOLUTAB 30 MG TAB NG SCH (08:09)
[2017-11-27] MEDS: CHOLECALCIFEROL (VIT D3) 5000 UNIT CAP PEG SCH (08:09)
[2017-11-27] MEDS: LISINOPRIL 5 MG TAB PEG SCH (08:09)
[2017-11-27] MEDS: ASPIRIN 325 MG TAB DOBHOFF SCH (08:09)
[2017-11-27] MEDS: FUROSEMIDE 20 MG TAB PO SCH (08:09)
[2017-11-27] MEDS: CALCIUM/VITAMIN D 250 MG/125 U TAB PEG SCH ×3 (08:09→18:06)
--- NOTE | 2017-11-27 09:54 | HHI.PR ---
Subjective Remarks No new issues per nursing and RN Continue current care Objective Vitals Vital Signs Date Time Temp Pulse Resp B/P (MAP) Pulse Ox O2 Delivery O2 Flow Rate FiO2 11/27/17 08:32 95 T-piece 28 11/27/17 04:00 98.2 47 15 107/34 (58) 98 11/27/17 00:00 98.3 74 20 167/42 (83) 97 11/26/17 20:43 98 T-piece 6.00 28 11/26/17 20:00 97.8 75 17 168/48 (88) 92 11/26/17 19:00 97 T-Piece 28 11/26/17 17:10 97 T-piece 6.00 28 11/26/17 16:00 97.4 62 18 122/47 (72) 97 11/26/17 12:00 97.4 58 18 129/39 (69) 98 I/O 11/26/17 11/26/17 11/26/17 11/27/17 11/27/17 11/27/17 07:00 15:00 23:00 07:00 15:00 23:00 Intake Total 720 ml 832 ml 805 ml Output Total 550 ml 750 ml 700 ml Balance 170 ml 82 ml 105 ml Tube Feeding 480 ml 592 ml 530 ml Other 240 ml 240 ml 275 ml Output Urine Total 550 ml 750 ml 700 ml Bladder Scan Volume Amount 1000 ml # Bowel Movements 3 Imaging Last Impressions Chest X-Ray 11/13/17 0000 Signed Impressions: Service Date/Time: October 15:36 - CONCLUSION: 1. Cardiomegaly with worsening pulmonary edema pattern. 2. Probable trace left pleural effusion. Alejo De La Vega MD Upper Extremity Ultrasound 11/04/17 0000 Signed Impressions: Service Date/Time: Saturday, November 04, 2017 09:57 - CONCLUSION: No thrombus observed. Subcutaneous edema noted. Deangelo Wren Jr., MD Abdomen X-Ray 11/04/17 0000 Signed Impressions: Service Date/Time: Saturday, November 04, 2017 11:58 - CONCLUSION: Gaseous distention of bowel loops could be ileus but unchanged. Benja Ramsey MD CT Angiography 11/01/17 0000 Signed Impressions: Service Date/Time: Wednesday, November 01, 2017 16:47 - CONCLUSION: No evidence for pulmonary embolism. Please see above. Choco Mustafa MD Thoracentesis 08/05/17 1535 Signed Impressions: Service Date/Time: Saturday, August 05, 2017 16:08 - CONCLUSION: Uncomplicated CT-guided thoracentesis. Sage Adler MD Chest Ultrasound 08/02/17 0000 Signed Impressions: Service Date/Time: Tuesday, August 01, 2017 22:06 - CONCLUSION: 1. Moderate right pleural effusion, as above. Alejo De La Vega MD Hip and Pelvis X-Ray 07/09/17 0000 Signed Impressions: Service Date/Time: Sunday, July 09, 2017 14:04 - CONCLUSION: Anatomic alignment. Ricardo Middleton MD FACR Liver Ultrasound 06/19/17 0000 Signed Impressions: Service Date/Time: June 13:20 - CONCLUSION: 1. Mildly increased echotexture of the liver characteristic of hepatic steatosis. 2. Gallbladder sludge. Obdulio Sam MD Head CT 05/15/17 0000 Signed Impressions: Service Date/Time: May 19:59 - CONCLUSION: 1. 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 2. No bleed or new/acute infarct. Obdulio Simms MD Gall Bladder Ultrasound 05/08/17 0000 Signed Impressions: Service Date/Time: May 08:23 - CONCLUSION: Focally unremarkable appearance of the gallbladder Obdulio Chun MD Abdomen/Pelvis CT 05/07/17 0000 Signed Impressions: Service Date/Time: Sunday, May 07, 2017 13:23 - CONCLUSION: 1. Large left pneumothorax. 2. Bilateral lower lobe consolidation and bilateral moderate size pleural effusions. 3. Significant soft tissue thickening of the right lateral chest wall and left gluteus muscle. 4. Mild ascites. The findings were called to Dr. Carney. Deangelo Zamora MD Chest CT 04/30/17 0000 Signed Impressions: Service Date/Time: Sunday, April 30, 2017 09:20 - CONCLUSION: 1. Bilateral pulmonary infiltrates more pronounced within the lower lobes with tiny bilateral pleural effusions. Material seen filling the lower lobe bronchi bilaterally either related to purulent material or perhaps mucus plugging. Deangelo Wren Jr., MD Carotid Artery Ultrasound 04/24/17 0000 Signed Impressions: Service Date/Time: April 09:45 - CONCLUSION: 1. No hemodynamically significant carotid artery stenosis. Arnie Middleton MD Hip X-Ray 04/21/17 0000 Signed Impressions: Service Date/Time: Friday, April 21, 2017 11:36 - CONCLUSION: Fluoroscopic images during placement of intramedullary siomara left femur. Benja Ramsey MD Objective Remarks GENERAL: Awake follows no commands left side is flaccid can move right side review of systems is unobtainable SKIN: Warm and dry. HEAD: Atraumatic. Normocephalic. EYES: Pupils equal and round. No scleral icterus. No injection or drainage. ENT: No nasal bleeding or discharge. Mucous membranes pink and moist. NECK: Trachea midline. No JVD. Supple tracheostomy in place CARDIOVASCULAR: Regular rate and rhythm. S1-S2 no S3 or S4 RESPIRATORY: No accessory muscle use. Clear to auscultation. Breath sounds equal bilaterally. GASTROINTESTINAL: Abdomen soft, non-tender, nondistended. Hepatic and splenic margins not palpable. PEG tube in place MUSCULOSKELETAL: Extremities without clubbing, cyanosis, or edema. No obvious deformities. NEUROLOGICAL: Awake and alert. No obvious cranial nerve deficits. Motor grossly within normal limits. Moves left side does not follow commands. No speech. PSYCHIATRIC: INAppropriate mood and affect; insight and judgment ABnormal. Procedures PEG tube Medications and IVs Current Medications Potassium Chloride 100 ml @ As Directed STK-MED ONCE .ROUTE Last administered on 04/20/17 13:58; Start 04/20/17 at 13:50; Stop 04/20/17 at 13:51; Status DC Sodium Chloride 1,000 ml @ 250 mls/hr Q4H IV ; Start 04/20/17 at 14:30; Stop at 21:57; Status DC Dextrose/Sodium Chloride 1,000 ml @ 200 mls/hr Q5H IV Last administered on 14:30; Start 04/20/17 at 14:30; Stop 04/20/17 at 21:57; Status DC Miscellaneous Medication ([facility] [place] [facility] Information) Mix all IV Medications in Nor... UNSCH .XX ; Start 04/20/17 at 14:30; Stop 04/20/17 at 21:57; Status DC Potassium Chloride 100 ml @ 100 mls/hr Q1H PRN IV SEE PROTOCOL; Start at 14:30; Stop 04/20/17 at 21:57; Status DC Potassium Chloride 100 ml @ 50 mls/hr Q2H PRN IV SEE PROTOCOL; Start 04/20/17 at 14:30; Stop 04/20/17 at 21:57; Status DC Potassium Chloride 100 ml @ 100 mls/hr Q1H PRN IV SEE PROTOCOL; Start at 14:30; Stop 04/20/17 at 21:57; Status DC Potassium Chloride 100 ml @ 100 mls/hr Q1H PRN IV SEE PROTOCOL TABLE; Start at 14:30; Stop 04/20/17 at 21:57; Status DC Potassium Chloride 100 ml @ 50 mls/hr Q2H PRN IV SEE PROTOCOL; Start 04/20/17 at 14:30; Stop 04/20/17 at 21:57; Status DC Potassium Chloride 100 ml @ 50 mls/hr Q2H PRN IV SEE PROTOCOL TABLE; Start at 14:30; Stop 04/20/17 at 21:57; Status DC Potassium Chloride 100 ml @ 50 mls/hr Q2H PRN IV SEE PROTOCOL TABLE; Start at 14:30; Stop 04/20/17 at 21:57; Status DC Potassium Chloride 100 ml @ 50 mls/hr Q2H PRN IV SEE PROTOCOL TABLE; Start at 14:30; Stop 04/20/17 at 21:57; Status DC Insulin Human Regular (NovoLIN R INJ) 0.1 units/ Kg actual body weight BOLUS ONCE IV PUSH Last administered on 04/20/17t 15:51; Start 04/20/17 at 14:30; Stop 04/20/17 at 14:31; Status DC Insulin Human Regular 100 units/ Sodium Chloride 100 ml @ 0 mls/hr TITRATE IV ; Start 04/20/17 at 14:30; Stop 04/20/17 at 21:57; Status DC Dextrose (D50w (Vial) Inj) 50 ml Q10M PRN IV PUSH HYPOGLYCEMIA DKA -SEE COMMENTS; Start 04/20/17 at 14:30; Stop 04/20/17 at 21:57; Status DC Sodium Bicarbonate (Sodium Bicarbonate 8.4% Inj) 100 meq STAT PRN IV SEE LABEL COMMENTS; Start 04/20/17 at 14:30; Stop 04/20/17 at 21:57; Status DC Sodium Bicarbonate (Sodium Bicarbonate 8.4% Inj) 50 meq STAT PRN IV SEE LABEL COMMENTS; Start 04/20/17 at 14:30; Stop 04/20/17 at 21:57; Status DC Sodium Phosphate 15 mmol/Sodium Chloride 105 ml @ 25 mls/hr UNSCH PRN IV SEE PROTOCOL TABLE; Start 04/20/17 at 14:30; Stop 04/20/17 at 21:57; Status DC Acetaminophen (Tylenol) 650 mg Q6H PRN PO PAIN SCALE 1 TO 2 Last administered on 05/03/17 00:27; Start 04/20/17 at 14:30; Stop 05/07/17 at 12:46; Status DC Ondansetron HCl (Zofran Inj) 4 mg Q6H PRN IV PUSH NAUSEA AND VOMITING Last administered on 04/30/17 02:28; Start 04/20/17 at 15:00; Stop 08/04/17 at 16:22 ; Status DC Heparin Sodium (Porcine) (Heparin Inj) 5,000 units Q12HR SQ Last administered on 04/20/17 21:00; Start 04/20/17 at 21:00; Stop 04/21/17 at 11:44; Status DC Morphine Sulfate (Morphine Inj) 1 mg Q3H PRN IV Pain 3-5; if unable to take PO Last administered on 04/28/17 18:15; Start 04/20/17 at 17:15; Stop 05/19/17 at 07:55; Status DC Morphine Sulfate (Morphine Inj) 2 mg Q3H PRN IV Pain 6-10;if unable to take PO Last administered on 04/30/17 02:29; Start 04/20/17 at 17:15; Stop 05/19/17 at 07:55; Status DC Naloxone HCl (Narcan Inj) 0.4 mg UNSCH PRN IV SEE LABEL COMMENTS; Start at 17:15 Senna/Docusate Sodium (Nalini-Colace) 1 tab BID PO Last administered on 05/07/17 10:30; Start 04/20/17 at 21:00; Stop 05/07/17 at 12:50; Status DC Magnesium Hydroxide (Milk Of Magnesia Liq) 30 ml Q12H PRN PO MILD - MODERATE CONSTIPATION; Start 04/20/17 at 20:30; Stop 07/26/17 at 16:12; Status DC Sennosides (Senokot) 17.2 mg Q12H PRN PO MODERATE - SEVERE CONSTIPATION Last administered on 04/23/17 22:55; Start 04/20/17 at 20:30; Stop 05/19/17 at 08:05 ; Status DC Bisacodyl (Dulcolax Supp) 10 mg DAILY PRN RECTAL SEVERE CONSITIPATION; Start at 20:30; Stop 07/26/17 at 16:12; Status DC Lactulose (Lactulose Liq) 30 ml DAILY PRN PO SEVERE CONSITIPATION; Start at 20:30; Stop 05/05/17 at 09:24; Status DC Dextrose (D50w (Vial) Inj) 50 ml UNSCH PRN IV HYPOGLYCEMIA-SEE COMMENTS; Start 04/20/17 at 21:45; Stop 04/24/17 at 09:34; Status DC Glucagon (Glucagon Inj) 1 mg UNSCH PRN OTHER HYPOGLYCEMIA-SEE COMMENTS; Start 04/20/17 at 21:45; Stop 04/24/17 at 09:34; Status DC Insulin Aspart (NovoLOG SUPPLEMENTAL SCALE) 1 ACHS SLIDING SCALE SQ Last administered on 04/24/17 06:43; Start 04/21/17 at 07:00; Stop 04/24/17 at 09:35 ; Status DC Calcium Carbonate (Oscal) 500 mg ONCE ONCE PO ; Start 04/21/17 at 07:00; Stop 04/21/17 at 07:11; Status DC Sodium Phosphate 15 mmol/Sodium Chloride 155 ml @ 38.75 mls/ hr ONCE ONCE IV Last administered on 04/21/17 09:32; Start 04/21/17 at 07:00; Stop 04/21/17 at 10:59; Status DC Sodium Chloride 1,000 ml @ 75 mls/hr [id number] IV ; Start 04/21/17 at 09:03; Stop 04/21/17 at 09:03; Status DC Sodium Chloride 1,000 ml @ 100 mls/hr Q10H IV Last administered on 04/23/17 02:15; Start 04/21/17 at 09:03; Stop 04/24/17 at 09:12; Status DC Cefazolin Sodium (Ancef Inj) 1,000 mg STK-MED ONCE .ROUTE Last administered on 04/21/17 10:38; Start 04/21/17 at 10:30; Stop 04/21/17 at 10:31; Status DC Gentamicin Sulfate (Gentamicin Inj) 160 mg STK-MED ONCE .ROUTE Last administered on 04/21/17 11:36; Start 04/21/17 at 10:30; Stop 04/21/17 at 10:31 ; Status DC Vancomycin HCl (Vancomycin Inj) 1,000 mg STK-MED ONCE .ROUTE Last administered on 04/21/17 11:04; Start 04/21/17 at 10:40; Stop 04/21/17 at 10:41; Status DC Bupivacaine HCl/ Epinephrine Bitart (Sensorcaine-Epinephrine 0.25% Inj) 50 ml STK-MED ONCE .ROUTE Last administered on 04/21/17 11:39; Start 04/21/17 at 11: 39; Stop 04/21/17 at 11:40; Status DC IV Flush (NS Flush) 2 ml UNSCH PRN IVF FLUSH AFTER USING IV ACCESS; Start 04/21 at 11:45; Stop 04/24/17 at 09:34; Status DC IV Flush (NS Flush) 2 ml BID IVF Last administered on 04/23/17 07:51; Start at 21:00; Stop 04/24/17 at 09:34; Status DC Enoxaparin Sodium (Lovenox Inj) 30 mg Q24H SQ Last administered on 04/23/17 11 :01; Start 04/22/17 at 11:00; Stop 04/24/17 at 18:07; Status DC Cefazolin Sodium 1000 mg/Sodium Chloride 100 ml @ 200 mls/hr Q8H IV Last administered on 04/22/17 09:07; Start 04/21/17 at 18:00; Stop 04/22/17 at 10:29 ; Status DC Calcium/Vitamin D (Oscal-D 250-125) 250 mg TID PO Last administered on at 09:56; Start 04/21/17 at 13:00; Stop 10/03/17 at 11:55; Status DC Diphenhydramine HCl (Benadryl) 25 mg Q6H PRN PO ITCHING; Start 04/21/17 at 11: 45; Stop 04/24/17 at 08:24; Status DC Acetaminophen/ Hydrocodone Bitart (Iva 7.5-325 Mg) 1 tab Q3H PRN PO pain 3< 10 Last administered on 05/03/17 20:17; Start 04/21/17 at 11:45; Stop 05/07/17 at 12:46; Status DC Cholecalciferol (Vitamin D3) 5,000 units DAILY PO Last administered on 09:08; Start 04/22/17 at 09:00; Stop 10/03/17 at 11:55; Status DC Ergocalciferol (Drisdol) 50,000 units ONCE ONCE PO ; Start 04/21/17 at 13:00; Stop 04/21/17 at 13:01; Status DC Midazolam HCl (Versed Inj) 2 mg STK-MED ONCE .ROUTE ; Start 04/21/17 at 12:15; Stop 04/21/17 at 12:16; Status DC Fentanyl Citrate (fentaNYL INJ) 250 mcg STK-MED ONCE .ROUTE ; Start 04/21/17 at 12:16; Stop 04/21/17 at 12:17; Status DC Morphine Sulfate (*morphine INJ PERIprocedure ONLY) 8 mg STK-MED ONCE .ROUTE Last administered on 04/21/17 12:37; Start 04/21/17 at 12:36; Stop 04/21/17 at 12:37; Status DC Miscellaneous Information ALL NURSING DEPARTME... UNSCH PRN .XX SEE LABEL COMMENTS; Start 04/21/17 at 13:00; Stop 04/22/17 at 12:59; Status DC Calcium Carbonate (Oscal) 500 mg ONCE ONCE PO ; Start 04/24/17 at 08:00; Stop 04/24/17 at 08:01; Status DC Sodium Chloride 1,000 ml @ 70 mls/hr [id number] IV ; Start 04/24/17 at 09:15; Stop 04/24/17 at 09:37; Status DC IV Flush (NS Flush) 2 ml BID IV FLUSH Last administered on 11/16/17at 09:00; Start 04/24/17 at 21:00; Stop 11/16/17 at 10:52; Status DC IV Flush (NS Flush) 2 ml UNSCH PRN IV FLUSH FLUSH AFTER USING IV ACCESS Last administered on 09/17/17at 08:48; Start 04/24/17 at 09:30; Stop 11/21/17 at 20:44 ; Status DC Sodium Chloride 1,000 ml @ 70 mls/hr [id number] IV Last administered on 03:38; Start 04/24/17 at 09:25; Stop 04/30/17 at 07:51; Status DC Aspirin (Aspirin Supp) 300 mg DAILY RECTAL Last administered on 04/26/17 08:38 ; Start 04/24/17 at 09:30; Stop 04/26/17 at 15:21; Status DC Insulin Aspart (NovoLOG SUPPLEMENTAL SCALE) 1 ACHS SQ Last administered on 04/24 17:29; Start 04/24/17 at 11:00; Stop 04/24/17 at 18:07; Status DC Dextrose (D50w (Vial) Inj) 50 ml UNSCH PRN IV PUSH HYPOGLYCEMIA-SEE COMMENTS; Start 04/24/17 at 09:30; Stop 04/24/17 at 18:07; Status DC Glucagon (Glucagon Inj) 1 mg UNSCH PRN OTHER HYPOGLYCEMIA-SEE COMMENTS; Start 04/24/17 at 09:30; Stop 04/24/17 at 18:07; Status DC Insulin Aspart (NovoLOG SUPPLEMENTAL SCALE) 1 Q4HR SQ ; Start 04/24/17 at 18:15 ; Stop 04/24/17 at 20:43; Status DC Dextrose (D50w (Vial) Inj) 25 ml UNSCH PRN IV HYPOGLYCEMIA-SEE COMMENTS; Start 04/24/17 at 18:15; Stop 04/26/17 at 20:28; Status DC Glucagon (Glucagon Inj) 1 mg UNSCH PRN IM/SQ HYPOGLYCEMIA-SEE COMMENTS; Start 04/24/17 at 18:15; Stop 05/21/17 at 13:34; Status DC Insulin Aspart (NovoLOG SUPPLEMENTAL SCALE) 1 Q4H SQ Last administered on 03:48; Start 04/24/17 at 22:00; Stop 04/26/17 at 09:43; Status DC Insulin Detemir (Levemir Inj) 10 units HS SQ Last administered on 04/25/17 23: 46; Start 04/25/17 at 21:00; Stop 04/26/17 at 09:43; Status DC Insulin Detemir (Levemir Inj) 20 units BID SQ Last administered on 04/26/17 11 :05; Start 04/26/17 at 10:00; Stop 04/27/17 at 08:34; Status DC Mannitol (Mannitol Inj) 12.5 gm Q6HR IV Last administered on 04/26/17 11:06; Start 04/26/17 at 12:00; Stop 04/28/17 at 18:33; Status DC Dextrose (D50w (Vial) Inj) 50 ml UNSCH PRN IV HYPOGLYCEMIA-SEE COMMENTS; Start 04/26/17 at 09:45; Status UNV Glucagon (Glucagon Inj) 1 mg UNSCH PRN OTHER HYPOGLYCEMIA-SEE COMMENTS; Start 04/26/17 at 09:45; Status UNV Insulin Aspart (NovoLOG SUPPLEMENTAL SCALE) 1 ACHS SLIDING SCALE SQ Last administered on 04/26/17 11:48; Start 04/26/17 at 11:00; Stop 04/26/17 at 15:24 ; Status DC Insulin Aspart (NovoLOG SUPPLEMENTAL SCALE) 1 Q4HR SQ Last administered on 04/28 09:38; Start 04/26/17 at 16:00; Stop 04/28/17 at 15:40; Status DC Aspirin (Aspirin) 325 mg DAILY DOBHOFF Last administered on 11/27/17at 08:09; Start 04/27/17 at 09:00 Dextrose (D50w (Syr) Inj) 25 ml UNSCH PRN IV HYPOGLYCEMIA- SEE COMMENTS Last administered on 05/18/17 00:22; Start 04/26/17 at 20:30; Stop 05/19/17 at 08:01 ; Status DC Metoprolol Tartrate (Lopressor Inj) 5 mg Q5M PRN IV PUSH HR>150 Last administered on 06/02/17 03:21; Start 04/27/17 at 04:00; Stop 07/12/17 at 01: 05; Status DC Insulin Detemir (Levemir Inj) 15 units BID SQ Last administered on 04/28/17 09 :39; Start 04/27/17 at 09:00; Stop 04/28/17 at 15:36; Status DC Potassium Chloride 100 ml @ 50 mls/hr Q2H PRN IV For Potassium 2.8 - 3.2 mEq/L ; Start 04/27/17 at 08:45; Stop 07/12/17 at 00:31; Status DC Potassium Chloride 100 ml @ 50 mls/hr Q2H PRN IV For Potassium 2.8 - 3.2 mEq/ L Last administered on 05/18/17 10:41; Start 04/27/17 at 08:45; Stop 07/12/17 at 00:31; Status DC Potassium Bicarb/ Potassium Chloride (K-Lyte Cl Eff) 50 meq UNSCH PRN PO For Potassium 3.3 - 3.5 mEq/L; Start 04/27/17 at 08:45; Stop 07/12/17 at 00:31; Status DC Potassium Chloride 100 ml @ 25 mls/hr UNSCH PRN IV For Potassium 3.3 - 3.5 mEq /L Last administered on 05/04/17 19:07; Start 04/27/17 at 08:45; Stop 07/12/17 at 00:31; Status DC Potassium Chloride 100 ml @ 50 mls/hr Q2H PRN IV For Potassium 3.3 - 3.5 mEq/ L Last administered on 05/18/17 08:29; Start 04/27/17 at 08:45; Stop 07/12/17 at 00:31; Status DC Magnesium Sulfate 4 gm/Sodium Chloride 100 ml @ 50 mls/hr UNSCH PRN IV For Magnesium 0.9 - 1.1 mg/dL; Start 04/27/17 at 08:45; Stop 07/12/17 at 00:31; Status DC Magnesium Oxide (Mag-Ox) 800 mg UNSCH PRN PO For Magnesium 1.2 - 1.6 mg/dL; Start 04/27/17 at 08:45; Stop 07/12/17 at 00:31; Status DC Magnesium Sulfate 2 gm/Sodium Chloride 100 ml @ 50 mls/hr UNSCH PRN IV For Magnesium 1.2 - 1.6 mg/dL; Start 04/27/17 at 08:45; Stop 07/12/17 at 00:31; Status DC Potassium Phosphate (K-Phos) 2,000 mg Q4H PRN PO For Phosphorus < 2.5 mg/dL Last administered on 04/28/17 15:38; Start 04/27/17 at 08:45; Stop 07/12/17 at 00:31; Status DC Sodium Phosphate 30 mmol/Sodium Chloride 250 ml @ 42 mls/hr UNSCH PRN IV For Phosphorus < 2.5 mg/dL Last administered on 04/27/17 23:59; Start 04/27/17 at 08:45; Stop 07/12/17 at 00:31; Status DC Potassium Phosphate (K-Phos) 2,000 mg UNSCH PRN PO/TUBE SEE LABEL COMMENTS Last administered on 05/08/17 06:32; Start 04/27/17 at 08:45; Stop 07/12/17 at 00:31; Status DC Potassium Phosphate 30 mmol/ Sodium Chloride 260 ml @ 42 mls/hr UNSCH PRN IV SEE LABEL COMMENTS Last administered on 05/04/17 20:54; Start 04/27/17 at 08:45 ; Stop 07/12/17 at 00:31; Status DC Insulin Detemir (Levemir Inj) 10 units BID SQ Last administered on 04/30/17 21 :00; Start 04/28/17 at 21:00; Stop 05/01/17 at 07:49; Status DC Pantoprazole Sodium (Protonix Inj) 40 mg Q24H IV PUSH Last administered on 17:00; Start 04/28/17 at 17:00; Stop 05/07/17 at 12:52; Status DC Insulin Aspart (NovoLOG SUPPLEMENTAL SCALE) 1 ACHS SLIDING SCALE SQ Last administered on 05/18/17 21:00; Start 04/28/17 at 16:00; Stop 05/19/17 at 07:55 ; Status DC Sodium Chloride 250 ml @ 15 mls/hr ONCE ONCE IV ; Start 04/28/17 at 18:00; Stop 04/28/17 at 18:33; Status DC Acetaminophen (Ofirmev 1000 Mg/ 100 ml Inj) 1,000 mg NOW ONCE IV Last administered on 04/29/17 01:00; Start 04/29/17 at 01:00; Stop 04/29/17 at 01:01 ; Status DC Iohexol (Omnipaque 350 Inj) 75 ml STK-MED ONCE IVCONTRAST Last administered on 04/26/17 04:26; Start 04/26/17 at 04:26; Stop 04/29/17 at 10:24; Status DC Fluconazole/ Sodium Chloride 100 ml @ 100 mls/hr Q24H IV Last administered on 04/30/17 14:59; Start 04/29/17 at 14:00; Stop 04/30/17 at 15:40; Status DC Metronidazole (Flagyl) 500 mg Q8HR DOBHOFF Last administered on 05/13/17 13:37 ; Start 04/29/17 at 14:00; Stop 05/13/17 at 16:14; Status DC Albuterol/ Ipratropium (Duoneb Neb) 1 ampule Q4HR NEB PRN NEB CONGESTION Last administered on 05/04/17 20:38; Start 04/30/17 at 04:45; Stop 05/07/17 at 12:46; Status DC Bumetanide (Bumex Inj) 1 mg ONCE ONCE IV PUSH Last administered on 04/30/17 10:14; Start 04/30/17 at 08:00; Stop 04/30/17 at 08:01; Status DC Potassium Chloride/Sodium Chloride 1,000 ml @ 84 mls/hr [id number] IV Last administered on 05/01/17 07:00; Start 04/30/17 at 08:00; Stop 05/01/17 at 07:32 ; Status DC Albuterol/ Ipratropium (Duoneb Neb) 1 ampule Q6HR NEB NEB Last administered on 05/04/17 07:52; Start 04/30/17 at 10:00; Stop 05/04/17 at 09:59; Status DC Cefepime HCl 2000 mg/Sodium Chloride 100 ml @ 200 mls/hr Q8H IV Last administered on 05/04/17 07:53; Start 04/30/17 at 09:00; Stop 05/04/17 at 08:22; Status DC Micafungin Sodium 100 mg/Sodium Chloride 100 ml @ 100 mls/hr Q24H IV Last administered on 05/07/17 10:29; Start 04/30/17 at 09:00; Stop 05/07/17 at 13:49; Status DC Etomidate (Amidate Inj) 20 mg STK-MED ONCE .ROUTE Last administered on 15:07; Start 04/30/17 at 14:56; Stop 04/30/17 at 14:57; Status DC Midazolam HCl (Versed Inj) 5 mg STK-MED ONCE .ROUTE Last administered on 15:06; Start 04/30/17 at 14:57; Stop 04/30/17 at 14:58; Status DC Rocuronium [place] (Zemuron Inj) 50 mg STK-MED ONCE .ROUTE Last administered on 04/30/17 15:07; Start 04/30/17 at 14:58; Stop 04/30/17 at 14:59; Status DC Etomidate (Amidate Inj) 20 mg NOW ONCE IV PUSH ; Start 04/30/17 at 15:30; Stop 04/30/17 at 15:31; Status DC Midazolam HCl (Versed Inj) 5 mg NOW ONCE IV PUSH ; Start 04/30/17 at 15:30; Stop 04/30/17 at 15:32; Status DC Rocuronium [place] (Zemuron Inj) 50 mg NOW ONCE IV PUSH ; Start 04/30/17 at 15: 45; Stop 04/30/17 at 15:46; Status DC Vancomycin HCl 1000 mg/Sodium Chloride 250 ml @ 250 mls/hr Q12H IV ; Start at 15:45; Status Cancel Pharmacy Profile Note 1,000 ml @ 30 mls/hr UNSCH OTHER ; Start 04/30/17 at 15: 45; Stop 05/04/17 at 08:22; Status DC Vancomycin HCl 1250 mg/Sodium Chloride 262.5 ml @ 250 mls/hr Q12H IV Last administered on 05/03/17 07:24; Start 04/30/17 at 18:00; Stop 05/03/17 at 15:39; Status DC Miscellaneous Information SPECIFIC LAB TO BE DRAWN:VANCOMYCIN TROUGH DATE TO... ONCE ONCE .XX ; Start 05/02/17 at 05:45; Stop 05/02/17 at 05:46; Status DC Sodium Chloride 1,000 ml @ 84 mls/hr [id number] IV Last administered on 05/02/17 09:24; Start 05/01/17 at 07:30; Stop 05/02/17 at 11:49; Status DC Insulin Detemir (Levemir Inj) 20 units Q12H SQ Last administered on 05/02/17 09 :23; Start 05/01/17 at 09:00; Stop 05/02/17 at 12:07; Status DC Enoxaparin Sodium (Lovenox Inj) 40 mg Q24H SQ Last administered on 07/14/17 07:47; Start 05/01/17 at 08:00; Stop 07/14/17 at 12:05; Status DC Lactated Ringer's 1,000 ml @ 75 mls/hr [id number] IV Last administered on 05:57; Start 05/02/17 at 13:00; Stop 05/07/17 at 16:50; Status DC Insulin Detemir (Levemir Inj) 25 units Q12H SQ Last administered on 05/04/17 07 :50; Start 05/02/17 at 21:00; Stop 05/05/17 at 09:20; Status DC Vancomycin HCl 1250 mg/Sodium Chloride 262.5 ml @ 262.5 mls/ hr Q24H IV Last administered on 05/04/17 05:21; Start 05/04/17 at 06:00; Stop 05/04/17 at 08:22; Status DC Miscellaneous Information SPECIFIC LAB TO BE ... ONCE ONCE .XX ; Start at 05:45; Stop 05/06/17 at 05:45; Status DC Levofloxacin/ Dextrose 150 ml @ 100 mls/hr Q24H IV Last administered on 10:00; Start 05/04/17 at 09:00; Stop 05/13/17 at 16:14; Status DC Furosemide (Lasix Inj) 10 mg BID@09,18 IV PUSH Last administered on 05/05/17 09 :05; Start 05/04/17 at 18:00; Stop 05/05/17 at 09:01; Status DC Albuterol/ Ipratropium (Duoneb Neb) 1 ampule Q6HR ALT NEB NEB Last administered on 05/05/17 04:30; Start 05/05/17 at 01:00; Stop 05/05/17 at 04:38; Status DC Albuterol/ Ipratropium (Duoneb Neb) 1 ampule Q6HR NEB NEB Last administered on 05/08/17 09:56; Start 05/05/17 at 10:00; Stop 05/08/17 at 10:15; Status DC Insulin Detemir (Levemir Inj) 10 units Q12H SQ Last administered on 05/07/17 10 :43; Start 05/05/17 at 21:00; Stop 05/07/17 at 13:54; Status DC Lactulose (Lactulose Liq) 30 ml DAILY PO Last administered on 05/07/17 10:29; Start 05/05/17 at 09:30; Stop 05/07/17 at 12:50; Status DC Sodium Chloride 1,000 ml @ 999 mls/hr BOLUS ONCE IV Last administered on 09:08; Start 05/06/17 at 07:45; Stop 05/06/17 at 08:45; Status DC Propofol (Diprivan 200 Mg/20 ml Inj) 200 mg STK-MED ONCE IV ; Start 04/21/17 at 12:12; Stop 05/06/17 at 12:13; Status DC Ephedrine Sulfate (ePHEDrine/NS 25 MG/5 ML SYR) 25 mg STK-MED ONCE IV ; Start at 12:12; Stop 05/06/17 at 12:13; Status DC Neostigmine Methylsulfate (Prostigmin Inj) 3 mg STK-MED ONCE IV ; Start at 12:12; Stop 05/06/17 at 12:13; Status DC Phenylephrine HCl (Neosynephrine/ NS 1000 Mcg/10ml Syr) 1,000 mcg STK-MED ONCE IV ; Start 04/21/17 at 12:12; Stop 05/06/17 at 12:13; Status DC Ondansetron HCl (Zofran Inj) 4 mg STK-MED ONCE IV PUSH ; Start 04/21/17 at 12:12 ; Stop 05/06/17 at 12:13; Status DC Albumin Human (Albumin 5% Inj) 25 gm NOW ONCE IV Last administered on 21:11; Start 05/06/17 at 20:45; Stop 05/06/17 at 20:46; Status DC Albuterol Sulfate (Albuterol Neb) 2.5 mg Q2HR NEB PRN NEB DYSPNEA; Start at 12:30; Stop 05/07/17 at 14:30; Status DC Bumetanide (Bumex Inj) 1 mg ONCE ONCE IV PUSH Last administered on 05/07/17 15 :07; Start 05/07/17 at 15:00; Stop 05/07/17 at 15:01; Status DC Metolazone (Zaroxolyn) 2.5 mg ONCE ONCE PO Last administered on 05/07/17 16:36 ; Start 05/07/17 at 15:30; Stop 05/07/17 at 15:31; Status DC Potassium Chloride (KCl Powder) 20 meq ONCE ONCE PO Last administered on 15:00; Start 05/07/17 at 15:00; Stop 05/07/17 at 15:01; Status DC Docusate Sodium (Colace Liq) 100 mg Q12HR PO Last administered on 07/22/17 21 :52; Start 05/07/17 at 21:00; Stop 07/26/17 at 16:13; Status DC Sennosides (Senna Liq) 8.8 mg BID OG-TUBE Last administered on 05/17/17 09:11 ; Start 05/07/17 at 21:00; Stop 05/19/17 at 08:05; Status DC Lactulose (Lactulose Liq) 30 ml QID PO Last administered on 05/16/17 20:56; Start 05/07/17 at 18:00; Stop 05/19/17 at 08:05; Status DC Polyethylene Glycol (Miralax) 17 gm BID OG-TUBE Last administered on 05/16/17 20:56; Start 05/07/17 at 21:00; Stop 05/19/17 at 08:05; Status DC Mineral Oil (Fleet Mineral Oil Enema) 118 ml ONCE ONCE RECTAL ; Start 05/07/17 at 13:00; Stop 05/07/17 at 14:37; Status DC Mineral Oil (Mineral Oil Liq) 30 ml ONCE ONCE PO Last administered on 16:36; Start 05/07/17 at 16:00; Stop 05/07/17 at 16:02; Status DC Methylnaltrexone [place] (Relistor Inj) 12 mg ONCE ONCE SQ Last administered on 05/07/17 16:37; Start 05/07/17 at 15:00; Stop 05/07/17 at 15:01; Status DC Albuterol Sulfate (Albuterol Neb) 2.5 mg Q2HR NEB PRN NEB DYSPNEA Last administered on 07/06/17 23:51; Start 05/07/17 at 13:00; Stop 07/16/17 at 16:36 ; Status DC Lansoprazole (Prevacid Odt) 30 mg DAILY NG Last administered on 11/27/17at 08:09 ; Start 05/08/17 at 09:00 Iohexol (Omnipaque 350 Inj) 60 ml STK-MED ONCE IVCONTRAST Last administered on 05/07/17 13:35; Start 05/07/17 at 13:35; Stop 05/07/17 at 13:36; Status DC Insulin Detemir (Levemir Inj) 15 units Q12H SQ Last administered on 05/10/17 20 :49; Start 05/07/17 at 21:00; Stop 05/11/17 at 09:21; Status DC Fentanyl Citrate (fentaNYL INJ) 100 mcg STK-MED ONCE .ROUTE ; Start 05/07/17 at 14:17; Stop 05/07/17 at 14:18; Status DC Midazolam HCl (Versed Inj) 5 mg STK-MED ONCE .ROUTE ; Start 05/07/17 at 14:18; Stop 05/07/17 at 14:19; Status DC Mineral Oil (Fleet Mineral Oil Enema) 118 ml ONCE ONCE RECTAL Last administered on 05/07/17 16:35; Start 05/07/17 at 16:00; Stop 05/07/17 at 16:02; Status DC Fentanyl Citrate (fentaNYL INJ) 50 mcg NOW ONCE IV Last administered on 17:21; Start 05/07/17 at 17:15; Stop 05/07/17 at 17:20; Status DC Midazolam HCl (Versed Inj) 1 mg NOW ONCE IV Last administered on 05/07/17 17: 15; Start 05/07/17 at 17:15; Stop 05/07/17 at 17:20; Status DC Potassium Chloride (KCl Powder) 80 meq ONCE ONCE PO Last administered on 10:29; Start 05/08/17 at 10:00; Stop 05/08/17 at 10:01; Status DC Potassium Chloride 100 ml @ 100 mls/hr Q1H IV Last administered on 05/08/17 15 :24; Start 05/08/17 at 10:00; Stop 05/08/17 at 12:59; Status DC Potassium Phos/ Sodium Phos (K-Phos Neutral) 1,000 mg ONCE ONCE PO Last administered on 05/08/17 10:46; Start 05/08/17 at 10:00; Stop 05/08/17 at 10:01; Status DC Bumetanide (Bumex Inj) 1 mg ONCE ONCE IV PUSH Last administered on 05/08/17 10 :28; Start 05/08/17 at 10:00; Stop 05/08/17 at 10:01; Status DC Albuterol/ Ipratropium (Duoneb Neb) 1 ampule Q6HR NEB NEB Last administered on 05/12/17 15:53; Start 05/08/17 at 16:00; Stop 05/12/17 at 15:59; Status DC Furosemide (Lasix Inj) 20 mg BID@09,18 IV PUSH Last administered on 05/10/17 18 :00; Start 05/10/17 at 10:00; Stop 05/11/17 at 06:15; Status DC Furosemide (Lasix Inj) 40 mg BID@0900,1800 IV PUSH Last administered on 17:53; Start 05/11/17 at 09:00; Stop 05/18/17 at 08:06; Status DC Acetazolamide Sodium (Diamox Inj) 500 mg DAILY IV PUSH Last administered on 08:54; Start 05/11/17 at 09:30; Stop 05/12/17 at 23:00; Status DC Insulin Detemir (Levemir Inj) 5 units Q12H SQ Last administered on 05/17/17 09 :12; Start 05/11/17 at 21:00; Stop 05/18/17 at 08:06; Status DC Protein (Beneprotein Powder) 1 pack TID G-TUBE Last administered on 10/03/17at 09 :00; Start 05/12/17 at 13:00; Stop 10/03/17 at 11:56; Status DC Acetazolamide Sodium (Diamox Inj) 500 mg ONCE ONCE IV PUSH Last administered on 05/13/17 22:40; Start 05/13/17 at 22:00; Stop 05/13/17 at 22:01; Status DC Cisatracurium Besylate (Nimbex Inj) 12 mg ONCE ONCE IV PUSH Last administered on 05/15/17 15:15; Start 05/14/17 at 17:45; Stop 05/14/17 at 17:49; Status DC Fentanyl Citrate (fentaNYL INJ) 100 mcg AIRPLANE TUBE BUILDER IV PUSH Last administered on 15:15; Start 05/14/17 at 17:45; Stop 05/15/17 at 17:44; Status DC Midazolam HCl (Versed Inj) 2 mg AIRPLANE TUBE BUILDER IV PUSH Last administered on 15:15; Start 05/14/17 at 17:45; Stop 05/15/17 at 17:44; Status DC Cisatracurium Besylate (Nimbex Inj) 12 mg AIRPLANE TUBE BUILDER IV PUSH ; Start 05/14/17 at 18:00; Stop 05/15/17 at 17:59; Status DC Cefazolin Sodium 1000 mg/Sodium Chloride 100 ml @ 200 mls/hr AIRPLANE TUBE BUILDER IV Last administered on 05/16/17 12:35; Start 05/15/17 at 17:15; Stop 05/18/17 at 17:14 ; Status DC Propofol (Diprivan 200 Mg/20 ml Inj) 210 mg STK-MED ONCE IV ; Start 05/16/17 at 13:30; Stop 05/16/17 at 18:25; Status DC Sodium Chloride 1,000 ml @ 75 mls/hr [id number] IV Last administered on 12:42; Start 05/17/17 at 11:45; Stop 05/19/17 at 07:55; Status DC Furosemide (Lasix Inj) 40 mg DAILY IV PUSH Last administered on 05/18/17 08:29 ; Start 05/18/17 at 09:00; Stop 05/19/17 at 07:55; Status DC Furosemide (Lasix Liq) 40 mg DAILY NG Last administered on 06/18/17 11:02; Start 05/19/17 at 09:00; Stop 06/19/17 at 06:54; Status DC Dextrose (D50w (Vial) Inj) 25 ml UNSCH PRN IV PUSH HYPOGLYCEMIA-SEE COMMENTS; Start 05/19/17 at 08:00; Stop 05/20/17 at 20:59; Status DC Insulin Human Regular (NovoLIN R SUPPLEMENTAL SCALE) 1 Q4HR SQ Last administered on 05/21/17 12:00; Start 05/19/17 at 08:00; Stop 05/21/17 at 13:15 ; Status DC Insulin Detemir (Levemir Inj) 8 units DAILY SQ Last administered on 05/20/17 09:00; Start 05/19/17 at 09:00; Stop 05/21/17 at 13:15; Status DC Dextrose (D50w (Syr) Inj) 25 ml UNSCH PRN IV PUSH HYPOGLYCEMIA-SEE COMMENTS Last administered on 05/20/17 21:14; Start 05/20/17 at 21:00; Stop 05/21/17 at 13:34; Status DC Insulin Detemir (Levemir Inj) 7 units Q12H SQ Last administered on 05/22/17 09 :00; Start 05/21/17 at 21:00; Stop 05/22/17 at 17:19; Status DC Dextrose (D50w (Vial) Inj) 50 ml UNSCH PRN IV PUSH HYPOGLYCEMIA-SEE COMMENTS; Start 05/21/17 at 13:15; Stop 05/22/17 at 17:06; Status DC Glucagon (Glucagon Inj) 1 mg UNSCH PRN OTHER HYPOGLYCEMIA-SEE COMMENTS; Start 05/21/17 at 13:15; Stop 10/08/17 at 11:08; Status DC Insulin Aspart (NovoLOG SUPPLEMENTAL SCALE) 1 ACHS SLIDING SCALE SQ Last administered on 06/11/17 11:56; Start 05/21/17 at 17:00; Stop 06/12/17 at 07: 10; Status DC Dextrose (D50w (Syr) Inj) 50 ml UNSCH PRN IV PUSH HYPOGLYCEMIA-SEE COMMENTS Last administered on 10/04/17at 01:57; Start 05/22/17 at 17:15; Stop 10/08/17 at 11 :08; Status DC Insulin Detemir (Levemir Inj) 5 units Q12H SQ Last administered on 05/27/17 21 :22; Start 05/22/17 at 21:00; Stop 05/28/17 at 09:50; Status DC Enalaprilat (Vasotec Inj) 1.25 mg Q6H PRN IV PUSH SBP> OR = 180, DBP> OR = 100 Last administered on 05/31/17 05:28; Start 05/24/17 at 22:45; Stop 05/31/17 at 07:41; Status DC Water (Free Water) VOLUME: 300 ML Q6HR G-TUBE Last administered on 06/10/17 06:00; Start 05/25/17 at 14:15; Stop 06/10/17 at 11:23; Status DC Acetazolamide Sodium (Diamox Inj) 500 mg ONCE ONCE IV PUSH Last administered on 05/26/17 08:54; Start 05/26/17 at 09:00; Stop 05/26/17 at 09:01; Status DC Ceftriaxone Sodium 1000 mg/ Sodium Chloride 100 ml @ 200 mls/hr Q24H IV Last administered on 05/27/17 08:32; Start 05/26/17 at 09:00; Stop 05/27/17 at 15:41 ; Status DC Cefepime HCl 1000 mg/Sodium Chloride 100 ml @ 200 mls/hr Q12H IV Last administered on 06/03/17 05:32; Start 05/27/17 at 16:00; Stop 06/03/17 at 09:12 ; Status DC Sodium Chloride 250 ml @ 15 mls/hr ONCE ONCE IV Last administered on 09:45; Start 05/28/17 at 09:45; Stop 05/29/17 at 02:24; Status DC Acetaminophen (Tylenol) 650 mg Q4H PRN PO SEE LABEL COMMENTS; Start 05/28/17 at 10:00; Stop 06/10/17 at 11:23; Status DC Diphenhydramine HCl (Benadryl) 25 mg Q4H PRN PO SEE LABEL COMMENTS; Start 05/28 at 10:00; Stop 06/02/17 at 07:40; Status DC Furosemide (Lasix Inj) 20 mg ONCE ONCE IV PUSH ; Start 05/28/17 at 10:00; Stop 05/28/17 at 10:01; Status DC Insulin Detemir (Levemir Inj) 7 units Q12H SQ Last administered on 06/20/17 21:12; Start 05/28/17 at 21:00; Stop 06/21/17 at 07:27; Status DC Artificial Tears (Tears Naturale Opth Soln) 1 drop Q4H PRN EACH EYE DRY EYE; Start 05/29/17 at 21:15; Stop 06/12/17 at 07:10; Status DC Hydralazine HCl (Apresoline Inj) 20 mg Q4H PRN IV PUSH SBP >160 Last administered on 06/21/17 04:06; Start 05/31/17 at 07:45; Stop 06/21/17 at 07: 23; Status DC Lisinopril (Prinivil) 10 mg Q12HR PO Last administered on 06/20/17 21:12; Start 05/31/17 at 09:00; Stop 06/21/17 at 07:23; Status DC Artificial Tears (Tears Naturale Opth Soln) 1 drop Q8HR EACH EYE Last administered on 11/27/17at 07:02; Start 06/12/17 at 07:15 Insulin Aspart (NovoLOG SUPPLEMENTAL SCALE) 1 Q6HR SQ Last administered on 18:00; Start 06/12/17 at 12:00; Stop 07/16/17 at 16:36; Status DC Sodium Chloride (Sodium Chloride) 2 gm ONCE ONCE PEG Last administered on 09:41; Start 06/12/17 at 07:00; Stop 06/12/17 at 07:12; Status DC Albuterol/ Ipratropium (Duoneb Neb) 1 ampule Q6HR NEB NEB Last administered on 06/16/17 03:46; Start 06/12/17 at 10:00; Stop 06/16/17 at 07:10; Status DC Insulin Aspart (NovoLOG INJ) 10 units ONCE ONCE SQ Last administered on 10:00; Start 06/12/17 at 10:00; Stop 06/12/17 at 10:32; Status DC Erythromycin Ethylsuccinate (Ees) 250 mg Q8HR PO ; Start 06/16/17 at 02:00; Stop 06/16/17 at 02:00; Status DC Methylnaltrexone [place] (Relistor Inj) 12 mg ONCE ONCE SQ Last administered on 06/16/17 01:40; Start 06/16/17 at 02:00; Stop 06/16/17 at 02:01; Status DC Erythromycin (Erythromycin Ec) 250 mg Q8HR PO Last administered on 06/18/17 12:27; Start 06/16/17 at 02:00; Stop 06/18/17 at 22:53; Status DC Albuterol/ Ipratropium (Duoneb Neb) 1 ampule Q6HR NEB NEB Last administered on 06/20/17 08:04; Start 06/16/17 at 10:00; Stop 06/20/17 at 09:24; Status DC Erythromycin Ethylsuccinate (Ees 400 Mg/5 ml Liq) 250 mg Q8H PO Last administered on 06/19/17 01:19; Start 06/19/17 at 00:00; Stop 06/19/17 at 06 :54; Status DC Polyethylene Glycol (Miralax) 17 gm DAILY PO ; Start 06/19/17 at 09:00; Stop 06/23/17 at 06:47; Status DC Albuterol/ Ipratropium (Duoneb Neb) 1 ampule Q6HR NEB NEB Last administered on 06/24/17 08:30; Start 06/20/17 at 10:00; Stop 06/24/17 at 09:59; Status DC Hydralazine HCl (Apresoline Inj) 10 mg Q1H PRN IV PUSH SBP >160 Last administered on 07/10/17 13:51; Start 06/21/17 at 07:30; Stop 07/12/17 at 00: 26; Status DC Lisinopril (Prinivil) 20 mg Q12HR PO Last administered on 08/22/17 21:16; Start 06/21/17 at 09:00; Stop 08/23/17 at 07:26; Status DC Labetalol HCl (Trandate Inj) 10 mg Q1H PRN IV PUSH SBP>160, DBP>90, HR>65 Last administered on 07/08/17 05:02; Start 06/21/17 at 07:30; Stop 07/12/17 at 00: 26; Status DC Nitroglycerin (Nitroglycerin 2% Oint) 2 inch Q6H PRN TOPICAL SBP>160, DBP>90 Last administered on 06/30/17 14:37; Start 06/21/17 at 08:00 Piperacillin Sod/ Tazobactam Sod 100 ml @ 200 mls/hr Q6H IV Last administered on 06/29/17 02:07; Start 06/21/17 at 09:00; Stop 06/29/17 at 08:59; Status DC Pharmacy Profile Note 0 ml @ 0 mls/hr UNSCH OTHER ; Start 06/21/17 at 07:30; Stop 06/23/17 at 06:46; Status DC Guaifenesin (Robitussin Liq) 400 mg Q8HR PEG Last administered on 06/29/17 06 :02; Start 06/21/17 at 14:00; Stop 06/29/17 at 13:59; Status DC Sodium Chloride (Sodium Chloride 3% Neb) 2 ml Q6HR NEB NEB Last administered on 06/29/17 08:21; Start 06/21/17 at 10:00; Stop 06/29/17 at 09:59; Status DC Insulin Detemir (Levemir Inj) 10 units Q12H SQ Last administered on 07/19/17 08:39; Start 06/21/17 at 09:00; Stop 07/19/17 at 09:26; Status DC Vancomycin HCl 1000 mg/Sodium Chloride 250 ml @ 250 mls/hr ONCE ONCE IV Last administered on 06/21/17 11:50; Start 06/21/17 at 12:00; Stop 06/21/17 at 12 :59; Status DC Vancomycin HCl 750 mg/Sodium Chloride 257.5 ml @ 250 mls/hr Q12H IV Last administered on 06/23/17 00:02; Start 06/22/17 at 00:00; Stop 06/23/17 at 06 :46; Status DC Miscellaneous Information SPECIFIC LAB TO BE ROLF... ONCE ONCE .XX ; Start at 23:45; Stop 06/22/17 at 23:46; Status DC Miscellaneous Information SPECIFIC LAB TO BE ROLF... ONCE ONCE .XX ; Start at 11:45; Stop 06/23/17 at 11:46; Status DC Polyethylene Glycol (Miralax) 17 gm BID PEG Last administered on 07/02/17 08: 35; Start 06/23/17 at 09:00; Stop 07/09/17 at 08:04; Status DC Albuterol/ Ipratropium (Duoneb Neb) 1 ampule Q6HR NEB NEB Last administered on 07/08/17 10:22; Start 07/04/17 at 10:00; Stop 07/08/17 at 09:59; Status DC Polyethylene Glycol (Miralax) 17 gm DAILY PEG Last administered on 10/02/17at 07: 59; Start 07/09/17 at 09:00; Stop 10/03/17 at 11:56; Status DC Clonidine (Catapres) 0.1 mg Q6H PRN PO SBP >160 Last administered on 16:22; Start 07/12/17 at 00:30; Stop 10/03/17 at 11:55; Status DC Heparin Sodium (Porcine) (Heparin Inj) 5,000 units Q8HR SQ Last administered on 11/27/17at 07:01; Start 07/15/17 at 08:00 Sodium Chloride 1,000 ml @ 42 mls/hr [id number] IV Last administered on 15:15; Start 07/14/17 at 14:45; Stop 07/15/17 at 08:00; Status DC Albuterol/ Ipratropium (Duoneb Neb) 2.5 ampule Q6HR NEB NEB ; Start 07/16/17 at 16:45; Stop 07/16/17 at 19:01; Status DC Hyoscyamine Sulfate (Levsin Liq) 0.125 mg BID PEG ; Start 07/16/17 at 21:00; Stop 07/16/17 at 21:00; Status DC Albuterol Sulfate (Albuterol Neb) 2.5 mg Q6HR NEB INH Last administered on 19:49; Start 07/16/17 at 22:00; Stop 07/20/17 at 21:59; Status DC Acetylcysteine (Mucomyst 20% Neb) 2 ml Q8HR NEB PRN NEB SECRETIONS; Start at 08:00; Stop 07/17/17 at 08:00; Status DC Acetylcysteine (Mucomyst 20% Neb) 2 ml Q8HR NEB PRN NEB SECRETIONS Last administered on 07/21/17 03:31; Start 07/17/17 at 08:00; Stop 07/21/17 at 07 :59; Status DC Trimethoprim/ Sulfamethoxazole (Bactrim 800-160 Mg/20 ml Liq) 20 ml Q12H PO ; Start 07/17/17 at 09:45; Stop 07/17/17 at 09:50; Status DC Trimethoprim/ Sulfamethoxazole (Bactrim 800-160 Mg/20 ml Liq) 20 ml Q12HR PEG Last administered on 07/19/17 21:27; Start 07/17/17 at 11:00; Stop 07/19/17 at 21:01; Status DC Insulin Detemir (Levemir Inj) 15 units Q12H SQ Last administered on 07/20/17 08:00; Start 07/19/17 at 21:00; Stop 07/20/17 at 08:26; Status DC Insulin Detemir (Levemir Inj) 18 units Q12H SQ Last administered on 07/22/17 13:46; Start 07/20/17 at 21:00; Stop 07/22/17 at 14:39; Status DC Trimethoprim/ Sulfamethoxazole (Bactrim 800-160 Mg/20 ml Liq) 20 ml Q12HR PEG Last administered on 07/21/17 08:12; Start 07/20/17 at 15:00; Stop 07/21/17 at 13:16; Status DC Albuterol/ Ipratropium (Duoneb Neb) 1 ampule ONCE ONCE NEB Last administered on 07/21/17 03:30; Start 07/21/17 at 03:30; Stop 07/21/17 at 03:31; Status DC Albuterol/ Ipratropium (Duoneb Neb) 1 ampule ONCE PRN NEB SHORTNESS OF BREATH; Start 07/21/17 at 04:15; Stop 07/21/17 at 07:30; Status DC Albuterol/ Ipratropium (Duoneb Neb) 1 ampule Q6HR NEB NEB Last administered on 07/25/17 09:05; Start 07/21/17 at 10:00; Stop 07/25/17 at 09:59; Status DC Acetylcysteine (Mucomyst 20% Neb) 2 ml Q8HR NEB PRN NEB SECRETIONS; Start at 07:00; Stop 07/21/17 at 07:24; Status DC Piperacillin Sod/ Tazobactam Sod 100 ml @ 200 mls/hr Q6H IV Last administered on 07/25/17 04:56; Start 07/21/17 at 10:00; Stop 07/25/17 at 07:50; Status DC Azithromycin 500 mg/Sodium Chloride 250 ml @ 250 mls/hr Q24H IV Last administered on 07/25/17 10:58; Start 07/21/17 at 11:00; Stop 07/25/17 at 13 :36; Status DC Insulin Aspart (NovoLOG SUPPLEMENTAL SCALE) 1 Q6HR SQ Last administered on at 06:47; Start 07/21/17 at 18:00; Stop 10/08/17 at 09:45; Status DC Insulin Detemir (Levemir Inj) 15 units Q12H SQ Last administered on 07/26/17 23:10; Start 07/22/17 at 21:00; Stop 07/27/17 at 09:00; Status DC Ceftolozane/ Tazobactam 1500 mg/Sodium Chloride 100 ml @ 100 mls/hr Q8H IV Last administered on 08/06/17 08:25; Start 07/25/17 at 09:00; Stop 08/06/17 at 12:58; Status DC Fluconazole/ Sodium Chloride 100 ml @ 100 mls/hr ONCE ONCE IV Last administered on 07/26/17 17:00; Start 07/26/17 at 17:00; Stop 07/26/17 at 17 :59; Status DC Insulin Detemir (Levemir Inj) 7 units Q12HR SQ Last administered on 09/14/17 07:32; Start 07/27/17 at 09:00; Stop 09/14/17 at 15:42; Status DC Furosemide (Lasix Liq) 40 mg ONCE ONCE NG Last administered on 07/29/17 17: 29; Start 07/29/17 at 16:00; Stop 07/29/17 at 16:02; Status DC Lactated Ringer's 1,000 ml @ 30 mls/hr Q24H PRN IV SEE LABEL COMMENTS; Start 08/03/17 at 06:30; Stop 08/06/17 at 06:29; Status DC Lidocaine/ Epinephrine (Xylocaine-Epi 1%-1:100,000 Inj) 20 ml STK-MED ONCE .ROUTE Last administered on 08/05/17 17:58; Start 08/05/17 at 17:58; Stop 08/05/17 at 17:59; Status DC Colistin Sulfate (Coly-Mycin M Neb) 75 mg Q8HR NEB NEB Last administered on 08:25; Start 08/06/17 at 16:00; Stop 08/12/17 at 15:59; Status DC Furosemide (Lasix Liq) 40 mg ONCE ONCE NG Last administered on 08/08/17 12: 54; Start 08/08/17 at 12:15; Stop 08/08/17 at 12:16; Status DC Albuterol/ Ipratropium (Duoneb Neb) 1 ampule Q6HR NEB PRN NEB WHEEZING Last administered on 10/16/17 07:17; Start 08/10/17 at 14:00; Stop 10/25/17 at 08: 28; Status DC Lisinopril (Prinivil) 30 mg Q12HR PO Last administered on 08/24/17 21:00; Start 08/23/17 at 09:00; Stop 08/25/17 at 07:46; Status DC Lisinopril (Prinivil) 40 mg Q12HR PO Last administered on 09/15/17at 20:54; Start 08/25/17 at 09:00; Stop 09/15/17 at 22:16; Status DC Amlodipine Besylate (Norvasc) 5 mg DAILY PO Last administered on 09/01/17 09:24 ; Start 08/31/17 at 09:00; Stop 09/02/17 at 06:48; Status DC Amlodipine Besylate (Norvasc) 10 mg DAILY PO Last administered on 10/02/17 08: 00; Start 09/02/17 at 09:00; Stop 10/03/17 at 11:55; Status DC Metoprolol Tartrate (Lopressor) 12.5 mg Q12HR PO Last administered on 09/06/17at 08:46; Start 09/05/17 at 21:00; Stop 10/03/17 at 11:55; Status DC Miscellaneous (Pill Splitter) 1 ea UNSCH PRN OTHER SEE LABEL COMMENTS; Start at 11:00 Trimethoprim/ Sulfamethoxazole (Bactrim 800-160 Mg/20 ml Liq) 20 ml Q12H PEG ; Start 09/09/17 at 20:00; Stop 09/09/17 at 20:00; Status DC Trimethoprim/ Sulfamethoxazole (Bactrim Ds 800-160 Mg) 1 tab Q12HR PEG Last administered on 09/29/17at 09:36; Start 09/09/17 at 21:00; Stop 09/29/17 at 22:01 ; Status DC Insulin Detemir (Levemir Inj) 12 units Q12HR SQ Last administered on 09/20/17at 20:49; Start 09/14/17 at 21:00; Stop 09/21/17 at 08:28; Status DC Lisinopril (Prinivil) 40 mg DAILY PO Last administered on 09/19/17at 09:39; Start 09/16/17 at 09:00; Stop 09/20/17 at 17:11; Status DC Sodium Polystyrene Sulfonate (Kayexalate Liq) 15 gm ONCE ONCE PO Last administered on 09/16/17at 11:01; Start 09/16/17 at 10:45; Stop 09/16/17 at 10:46 ; Status DC Acetaminophen (Tylenol) 500 mg Q6H PRN PEG Fever > 100.0F Last administered on 09/16/17at 16:36; Start 09/16/17 at 16:15; Stop 10/26/17 at 06:36; Status DC Dextrose 1,000 ml @ 75 mls/hr [id number] IV Last administered on 09/20/17at 11:09 ; Start 09/18/17 at 15:30; Stop 09/20/17 at 17:11; Status DC Lisinopril (Prinivil) 20 mg DAILY PO ; Start 09/21/17 at 09:00; Stop 09/21/17 at 23:55; Status DC Metoclopramide HCl (Reglan Inj) 10 mg ONCE ONCE IV PUSH Last administered on at 03:37; Start 09/21/17 at 03:15; Stop 09/21/17 at 03:16; Status DC Insulin Detemir (Levemir Inj) 12 units HS SQ Last administered on 09/26/17at 21: 00; Start 09/21/17 at 21:00; Stop 09/27/17 at 17:31; Status DC Calcium Gluconate 1 gm/Dextrose 110 ml @ 110 mls/hr ONCE ONCE IV Last administered on 09/21/17at 11:43; Start 09/21/17 at 11:15; Stop 09/21/17 at 12:14 ; Status DC Sodium Polystyrene Sulfonate (Kayexalate Liq) 15 gm QID PEG Last administered on 09/22/17at 09:30; Start 09/21/17 at 13:00; Stop 09/22/17 at 09:02; Status DC Insulin Human Regular (NovoLIN R INJ) 10 units ONCE ONCE IV PUSH Last administered on 09/21/17at 11:42; Start 09/21/17 at 11:30; Stop 09/21/17 at 11:31 ; Status DC Dextrose (D50w (Vial) Inj) 50 ml ONCE ONCE IV PUSH Last administered on at 11:42; Start 09/21/17 at 11:30; Stop 09/21/17 at 11:31; Status DC Albuterol Sulfate (Albuterol Concentrated Neb) 10 mg ONCE ONCE INH Last administered on 09/21/17at 11:30; Start 09/21/17 at 11:30; Stop 09/21/17 at 11:31 ; Status DC Sodium Chloride 500 ml @ 100 mls/hr Q5H IV Last administered on 09/21/17at 13: 38; Start 09/21/17 at 13:00; Stop 09/21/17 at 17:59; Status DC Sodium Chloride 1,000 ml @ 42 mls/hr [id number] IV Last administered on at 08:34; Start 09/21/17 at 21:00; Stop 09/24/17 at 08:24; Status DC Hydralazine HCl (Apresoline) 10 mg Q8HR PEG Last administered on 11/27/17at 07: 01; Start 09/24/17 at 14:00 Hydralazine HCl (Apresoline) 10 mg ONCE ONCE PEG Last administered on at 11:49; Start 09/24/17 at 09:00; Stop 09/24/17 at 09:01; Status DC Cefepime HCl 2000 mg/Sodium Chloride 100 ml @ 200 mls/hr Q8H IV Last administered on 09/29/17at 05:35; Start 09/25/17 at 12:00; Stop 09/29/17 at 08:46 ; Status DC Sodium Polystyrene Sulfonate (Kayexalate Liq) 15 gm ONCE ONCE RECTAL Last administered on 09/26/17at 10:51; Start 09/26/17 at 09:15; Stop 09/26/17 at 09:16 ; Status DC Sodium Polystyrene Sulfonate (Kayexalate Liq) 15 gm ONCE ONCE PEG Last administered on 09/27/17at 18:11; Start 09/27/17 at 17:15; Stop 09/27/17 at 17:16 ; Status DC Insulin Detemir (Levemir Inj) 10 units BID SQ Last administered on 09/29/17at 09 :37; Start 09/27/17 at 21:00; Stop 09/29/17 at 15:14; Status DC Doxazosin Mesylate (Cardura) 1 mg DAILY PO Last administered on 10/02/17at 07:59 ; Start 09/28/17 at 10:00; Stop 10/03/17 at 11:55; Status DC Ceftolozane/ Tazobactam 1500 mg/Sodium Chloride 100 ml @ 100 mls/hr Q8H IV Last administered on 09/30/17at 01:51; Start 09/29/17 at 10:00; Stop 09/30/17 at 10:38; Status DC Lactobacillus Acidophilus (Lactinex) 1 tab Q12HR PO Last administered on at 09:08; Start 09/29/17 at 21:00; Stop 10/03/17 at 11:55; Status DC Insulin Human NPH (NovoLIN N INJ) 7 units TID SQ Last administered on at 18:16; Start 09/29/17 at 18:00; Stop 10/01/17 at 19:07; Status DC Acetylcysteine (Mucomyst 10% Neb) 2 ml Q6HR NEB NEB ; Start 09/29/17 at 16:00; Stop 09/29/17 at 16:21; Status DC Acetylcysteine (Mucomyst 10% Neb) 2 ml Q6HR NEB NEB Last administered on at 08:30; Start 09/29/17 at 14:30; Stop 10/03/17 at 14:29; Status DC Metoclopramide HCl (Reglan Inj) 10 mg ONCE ONCE IV PUSH Last administered on at 22:11; Start 09/29/17 at 21:30; Stop 09/29/17 at 21:31; Status DC Trimethoprim/ Sulfamethoxazole (Bactrim 800-160 Mg/20 ml Liq) 20 ml BID PEG Last administered on 10/03/17at 09:08; Start 09/29/17 at 22:02; Stop 10/03/17 at 18 :48; Status DC Colistin Sulfate (Coly-Mycin M Neb) 75 mg Q8HR NEB NEB Last administered on at 07:29; Start 09/30/17 at 16:00; Stop 10/21/17 at 15:59; Status DC Insulin Human NPH (NovoLIN N INJ) 10 units TID SQ Last administered on 18:43; Start 10/02/17 at 09:00; Stop 10/07/17 at 12:30; Status DC Sodium Polystyrene Sulfonate (Kayexalate Liq) 15 gm BID PO Last administered on 10/03/17at 10:09; Start 10/03/17 at 09:00; Stop 10/03/17 at 11:55; Status DC Sodium Chloride 1,000 ml @ 100 mls/hr Q10H IV Last administered on 10/03/17at 20 :26; Start 10/03/17 at 08:30; Stop 10/03/17 at 22:36; Status DC Levofloxacin/ Dextrose 100 ml @ 100 mls/hr Q24H IV Last administered on at 11:46; Start 10/03/17 at 10:00; Stop 10/03/17 at 20:03; Status DC Amlodipine Besylate (Norvasc) 10 mg DAILY PEG Last administered on 11/27/17at 08 :09; Start 10/04/17 at 09:00 Calcium/Vitamin D (Oscal-D 250-125) 250 mg TID PEG Last administered on 08:09; Start 10/03/17 at 13:00 Cholecalciferol (Vitamin D3) 5,000 units DAILY PEG Last administered on 08:09; Start 10/04/17 at 09:00 Clonidine (Catapres) 0.1 mg Q6H PRN PEG SBP >160 Last administered on at 00:23; Start 10/03/17 at 12:30 Doxazosin Mesylate (Cardura) 1 mg DAILY PEG Last administered on 11/18/17 09: 04; Start 10/04/17 at 09:00; Stop 11/22/17 at 17:42; Status DC Lactobacillus Acidophilus (Lactinex) 1 tab Q12HR PEG Last administered on at 08:08; Start 10/03/17 at 21:00 Metoprolol Tartrate (Lopressor) 12.5 mg Q12HR PEG Last administered on at 19:28; Start 10/03/17 at 21:00; Stop 10/26/17 at 08:47; Status DC Sodium Polystyrene Sulfonate (Kayexalate Liq) 15 gm BID PEG Last administered on 10/03/17at 21:00; Start 10/03/17 at 21:00; Stop 10/05/17 at 14:49; Status DC Polyethylene Glycol (Miralax) 17 gm DAILY PRN PEG Constipation; Start 10/03/17 at 12:00 Protein (Beneprotein Powder) 1 pack TID PRN G-TUBE Constipation; Start 10/03/17 at 12:00 Albuterol Sulfate (Albuterol Neb) 2.5 mg Q2HR NEB PRN NEB WHEEZING Last administered on 10/19/17at 22:09; Start 10/03/17 at 21:45 Dextrose 1,000 ml @ 30 mls/hr Q24H IV ; Start 10/03/17 at 22:45; Status Cancel Dextrose (D50w (Vial) Inj) 25 ml ONCE ONCE IV PUSH Last administered on at 22:42; Start 10/03/17 at 22:45; Stop 10/03/17 at 22:46; Status DC Furosemide (Lasix Inj) 40 mg ONCE ONCE IV PUSH Last administered on 10/03/17 22:46; Start 10/03/17 at 22:45; Stop 10/03/17 at 22:46; Status DC Dextrose 500 ml @ 10 mls/hr Q24H IV Last administered on 10/04/17at 15:49; Start 10/03/17 at 23:00; Stop 10/05/17 at 14:49; Status DC Fentanyl Citrate (fentaNYL INJ) 100 mcg STK-MED ONCE .ROUTE ; Start 10/03/17 at 22:47; Stop 10/03/17 at 22:48; Status DC Fentanyl Citrate (fentaNYL INJ) 100 mcg NOW ONCE IV PUSH ; Start 10/03/17 at 23: 00; Stop 10/03/17 at 23:01; Status DC Fentanyl Citrate (fentaNYL INJ) 50 mcg ONCE ONCE IV PUSH Last administered on 10/03/17at 23:00; Start 10/03/17 at 23:00; Stop 10/03/17 at 23:10; Status DC Fentanyl Citrate (fentaNYL INJ) 50 mcg Q1H PRN IV PUSH SEDATION; Start 10/03/17 at 23:00; Stop 10/29/17 at 10:46; Status DC Chlorhexidine Gluconate (Peridex 0.12% Liq) 15 ml BID@08,20 MT Last administered on 10/31/17at 21:41; Start 10/04/17 at 08:00; Stop 11/01/17 at 11:43; Status DC Furosemide (Lasix Inj) 40 mg ONCE ONCE IV PUSH Last administered on 10/04/17 05:52; Start 10/04/17 at 05:00; Stop 10/04/17 at 05:01; Status DC Furosemide (Lasix Inj) 40 mg Q6HR IV PUSH Last administered on 10/06/17 05:28; Start 10/04/17 at 12:00; Stop 10/06/17 at 11:00; Status DC Insulin Human NPH (NovoLIN N INJ) 5 units BID@08,17 SQ Last administered on 10/10at 08:05; Start 10/07/17 at 17:00; Stop 10/10/17 at 11:33; Status DC Insulin Detemir (Levemir Inj) 7 units Q12H SQ Last administered on 10/25/17at 23 :55; Start 10/08/17 at 12:00; Stop 10/26/17 at 06:36; Status DC Dextrose (D50w (Vial) Inj) 50 ml UNSCH PRN IV PUSH HYPOGLYCEMIA-SEE COMMENTS Last administered on 10/28/17at 17:42; Start 10/08/17 at 09:45; Stop 11/04/17 at 12 :34; Status DC Glucagon (Glucagon Inj) 1 mg UNSCH PRN OTHER HYPOGLYCEMIA-SEE COMMENTS Last administered on 10/14/17at 00:45; Start 10/08/17 at 09:45; Stop 11/04/17 at 12:34; Status DC Insulin Human Regular (NovoLIN R SUPPLEMENTAL SCALE) 1 Q6HR SQ Last administered on 11/04/17at 06:00; Start 10/08/17 at 12:00; Stop 11/04/17 at 12:27; Status DC Water (Free Water) 250 ml Q8HR G-TUBE Last administered on 10/20/17at 05:20; Start 10/18/17 at 14:00; Stop 10/20/17 at 10:15; Status DC Water (Free Water) VOLUME OF WATER: ( 200 ) ML Q6HR G-TUBE Last administered on 10/27/17at 05:49; Start 10/20/17 at 12:00; Stop 10/27/17 at 10:02; Status DC Albuterol/ Ipratropium (Duoneb Neb) 1 ampule Q6HR NEB NEB Last administered on 10/29/17at 08:34; Start 10/25/17 at 10:00; Stop 10/29/17 at 09:59; Status DC Insulin Detemir (Levemir Inj) 8 units Q12H SQ Last administered on 11/27/17at 00 :23; Start 10/26/17 at 12:00 Acetaminophen (Tylenol 650 Mg/ 20 ml Liq) 650 mg Q6H PRN PEG fever; Start 10/26 at 06:45 Oxycodone HCl (Roxicodone Intensol Liq) 5 mg Q6H PRN PO pain 6-10; Start at 11:00 Iohexol (Omnipaque 350 Inj) 75 ml STK-MED ONCE IVCONTRAST Last administered on 11/01/17at 16:59; Start 11/01/17 at 16:59; Stop 11/01/17 at 17:00; Status DC Dextrose (D50w (Vial) Inj) 50 ml UNSCH PRN IV PUSH HYPOGLYCEMIA-SEE COMMENTS; Start 11/04/17 at 12:30 Glucagon (Glucagon Inj) 1 mg UNSCH PRN OTHER HYPOGLYCEMIA-SEE COMMENTS; Start 11/04/17 at 12:30 Insulin Human Regular (NovoLIN R SUPPLEMENTAL SCALE) 1 Q6H SQ Last administered on 11/27/17at 07:02; Start 11/04/17 at 12:30 Dextrose (D50w (Vial) Inj) 25 ml ONCE ONCE IV PUSH Last administered on at 12:54; Start 11/04/17 at 12:30; Stop 11/04/17 at 12:35; Status DC Metoclopramide HCl (Reglan Inj) 10 mg Q8HR IV PUSH Last administered on at 05:41; Start 11/05/17 at 22:00; Stop 11/07/17 at 13:32; Status DC Amoxicillin/ Clavulanate Potassium (Augmentin 600 Mg/5 ml Liq) 600 mg Q12H PO Last administered on 11/13/17at 23:56; Start 11/07/17 at 12:00; Stop 11/14/17 at 11:59; Status DC Metoclopramide HCl (Reglan Liq) 10 mg Q8HR PO Last administered on 11/18/17at 14:08; Start 11/07/17 at 14:30; Status Future Hold Albuterol/ Ipratropium (Duoneb Neb) 1 ampule Q6HR NEB NEB Last administered on 11/12/17at 09:08; Start 11/08/17 at 10:30; Stop 11/12/17 at 10:29; Status DC Cholestyramine Resin (Questran Light Pkt) 4 gm BID PRN PEG DIARRHEA Last administered on 11/25/17at 09:59; Start 11/12/17 at 13:30 Furosemide (Lasix Inj) 20 mg BID@,18 IV PUSH Last administered on 11/14/17at 08:32; Start 11/13/17 at 17:00; Stop 11/14/17 at 14:49; Status DC Furosemide (Lasix Inj) 20 mg DAILY IV PUSH Last administered on 11/15/17at 09:00 ; Start 11/15/17 at 09:00; Stop 11/16/17 at 08:59; Status DC Sodium Chloride (NS Flush) 2 ml BID IV FLUSH ; Start 11/16/17 at 10:45; Status Cancel Sodium Chloride (NS Flush) 2 ml BID IV FLUSH Last administered on 11/21/17 09: 00; Start 11/16/17 at 21:00; Stop 11/21/17 at 20:44; Status DC Albuterol Sulfate (Proventil) 2 mg ONCE ONCE PO Last administered on 17:16; Start 11/18/17 at 15:30; Stop 11/18/17 at 15:31; Status DC Sodium Chloride 250 ml @ 250 mls/hr BOLUS ONCE IV Last administered on at 15:26; Start 11/18/17 at 14:30; Stop 11/18/17 at 15:29; Status DC Insulin Human Regular (NovoLIN R INJ) 10 units ONCE ONCE SQ Last administered on 11/18/17at 18:23; Start 11/18/17 at 18:00; Stop 11/18/17 at 18:18; Status DC Dextrose (D50w (Syr) Inj) 12.5 ml ONCE ONCE IV PUSH Last administered on at 18:22; Start 11/18/17 at 18:00; Stop 11/18/17 at 18:18; Status DC Furosemide (Lasix) 20 mg DAILY PO Last administered on 11/27/17 08:09; Start 11/20/17 at 09:00 Lisinopril (Prinivil) 5 mg ONCE ONCE PEG Last administered on 11/22/17at 17:56 ; Start 11/22/17 at 17:45; Stop 11/22/17 at 17:49; Status DC Lisinopril (Prinivil) 5 mg DAILY PEG Last administered on 11/27/17at 08:09; Start 11/23/17 at 09:00 Diphenoxylate HCl/ Atropine (Lomotil 2.5-0.025 Mg Liq) 5 ml Q6H PRN PO LOOSE STOOLS Last administered on 11/25/17at 16:32; Start 11/25/17 at 13:15 A/P Problem List: (1) Acute ischemic left middle cerebral artery (MCA) stroke ICD Code: I63.512 - Cerebral infarction due to unspecified occlusion or stenosis of left middle cerebral artery Status: Acute (2) Acute respiratory failure ICD Code: J96.00 - Acute respiratory failure, unspecified whether with hypoxia or hypercapnia (3) Right hemiplegia ICD Code: G81.91 - Hemiplegia, unspecified affecting right dominant side Status: Acute (4) Sacral decubitus ulcer ICD Code: L89.159 - Pressure ulcer of sacral region, unspecified stage Status: Chronic (5) HCAP (healthcare-associated pneumonia) ICD Code: J18.9 - Pneumonia, unspecified organism Status: Resolved (6) 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 She underwent ORIF on 04/21/17 and on 04/24 a stroke alert was called as she was found to have right hemiparesis with left gaze. She has a poor prognosis based on her lack of overall recovery over the last 6+ months. Patient has no acute issues, no change in care plan. Shortness of breath/desaturation secondary to pulmonary edema-chest x-ray done , personally reviewed, has evidence of pulmonary edema, continue Lasix, monitor BMP every few weeks. Urinary retention No leukocytosis U/A with large leuk esterase but many squamous cells Culture grew Aerococcus, finished Augmentin November 07 - November 14. Leavitt replaced Elevated D-dimer Ordered 10/31 for increasing FiO2 demand Since D-dimer elevated, CTA chest obtained to r/o PE which was negative Likely elevated in light of chronic illness RUE U/S negative for DVT - elevate R arm Left MCA stroke 5.5 mm of [id number] subfalcine herniation, diagnosed 04/24. Was not a candidate for thrombolysis at that time. Increasing edema seen on repeat CT 04/28 with a reduction in midline shift on another repeat on 04/30 Neurologic condition remained poor and she underwent trach 05/15/17 and PEG Persistent right-sided hemiparesis. Previously seen by neurology, signed off Previously seen by neurosurgery, signed off Continue daily ASA Hypertension / CHF Amlodipine 10 mg po daily, Doxazosin 1 mg peg daily, hydralazine 10 mg per per peg q8 hours. Clonidine 0.1 mg q6h prn Echo 10/06/17 LVSF EF = 25-30%. Chronic Tracheostomy /respiratory failure 10/22/2017 Pulmonary toilet, trach care Duo nebs as needed Pulm following, appreciate assistance Large left pneumothorax Resolved Chest tube placed 05/07, discontinued 05/12/17 Hepatitis C LFTs normalized Negative genotype/viral load Diabetes mellitus SSI Novolin R High-dose scale Levemir insulin 8u Q12 FEN PEG tube feeding with Glucerna 1.5 goal 45 cc/hr, per nutrition recommendations Loose Stools patient has been checked for Cdiff on multiple occasions, most recently 11/04 Cdiff negative already on lactinex bid Continue Questran, start Lomotil. Anal Fissure continue wound care DVT prophylaxis Heparin Discharge Planning Aggressive therapy, full code per palliative. Needs placement Problem Qualifiers (1) Acute respiratory failure: Qualified Codes: J96.00 - Acute respiratory failure, unspecified whether with hypoxia or hypercapnia (2) Sacral decubitus ulcer: Qualified Codes: L89.152 - Pressure ulcer of sacral region, stage 2 (3) Chronic respiratory failure: Qualified Codes: J96.11 - Chronic respiratory failure with hypoxia Ricardo Shafer DO Nov 27, 2017 09:54
--- NOTE | 2017-11-27 20:11 | HHI.PR ---
Subjective Remarks No events overnight. Patient is on TP's with 40% FIO2. . Tolerating tube feeds. Awake, looks around Tolerates TF No fever Awake, looks around. No new complaint HR stable Objective Vital Signs Vital Signs Date Time Temp Pulse Resp B/P (MAP) Pulse Ox O2 Delivery O2 Flow Rate FiO2 11/27/17 18:45 84 147/49 (81) 97 11/27/17 14:58 98.5 52 14 149/50 (83) 97 11/27/17 08:32 95 T-piece 28 11/27/17 08:30 97 T-Piece 6.00 28 11/27/17 08:00 98.7 50 14 118/47 (70) 94 11/27/17 04:00 98.2 47 15 107/34 (58) 98 11/27/17 00:00 98.3 74 20 167/42 (83) 97 11/26/17 20:43 98 T-piece 6.00 28 I/O 11/26/17 11/26/17 11/26/17 11/27/17 11/27/17 11/27/17 07:00 15:00 23:00 07:00 15:00 23:00 Intake Total 720 ml 832 ml 805 ml 660 ml Output Total 550 ml 750 ml 700 ml 700 ml Balance 170 ml 82 ml 105 ml -40 ml Tube Feeding 480 ml 592 ml 530 ml 540 ml Tube Irrigant 120 ml Other 240 ml 240 ml 275 ml Output Urine Total 550 ml 750 ml 700 ml 700 ml Bladder Scan Volume Amount 1000 ml # Bowel Movements 3 Objective Remarks GENERAL: Elderly female,NAD SKIN: Warm and dry. HEAD: Normocephalic. EYES: No scleral icterus. No injection or drainage. NECK: Supple, trachea midline. No JVD or lymphadenopathy. + trach CARDIOVASCULAR: Regular rate and rhythm without murmurs, gallops, or rubs. RESPIRATORY: Breath sounds equal bilaterally. No accessory muscle use. GASTROINTESTINAL: Abdomen soft, non-tender, nondistended. MUSCULOSKELETAL: No cyanosis, or edema. BACK: Nontender without obvious deformity. No CVA tenderness. A/P Assessment and Plan Chronic resp failure, ,S/P Trach CVA Pneumonia Calcified Granuloma LLL Pseudomonas Tracheobronchitis, PLAN: Continue with TP's, keep sats >92% Bronchodilators, Pulm toilet, trach care CT chest 11/01: No PE,adenopathy in the right paratracheal, subcarinal and hilar regions with numerous prominent lymph nodes seen. Continue with abx ( Augmentin)monitor for signs of infections ( fever, WBC) follow up on urine cx Continue with tube feeds- Glucerna 1.5 @ 45ml/hr GI/DVT prophylaxis Continue treatment plan. LAI RN at Chris Rizo MD Nov 27, 2017 20:11
[2017-11-28] VITALS (7 sets, daily range): BP systolic 119–150; BP diastolic 54–75; PULSE 49–81; RESP 16–18; TEMP 97.7–98.5; O2SAT 90–99
[2017-11-28] MEDS: ARTIFICIAL TEARS OPTH SOLN 15 ML BTL EACH EYE SCH ×3 (05:10→20:58)
[2017-11-28] MEDS: HEPARIN SODIUM - SQ 10,000 UNITS/ML VIAL SQ SCH ×3 (05:10→20:57)
[2017-11-28] MEDS: hydrALAZINE HCL 10 MG TAB PEG SCH ×3 (05:10→20:57)
[2017-11-28] MEDS: INSULIN NovoLIN REGULAR SUPPLEMENTAL SCALE SQ SCH ×3 (05:11→18:20)
[2017-11-28] MEDS: FUROSEMIDE 20 MG TAB PO SCH (08:38)
[2017-11-28] MEDS: LACTOBACILLUS ACIDOPHILUS TAB PEG SCH ×2 (08:38→20:58)
[2017-11-28] MEDS: CHOLECALCIFEROL (VIT D3) 5000 UNIT CAP PEG SCH (08:38)
[2017-11-28] MEDS: ASPIRIN 325 MG TAB DOBHOFF SCH (08:38)
[2017-11-28] MEDS: LISINOPRIL 5 MG TAB PEG SCH (08:38)
[2017-11-28] MEDS: CALCIUM/VITAMIN D 250 MG/125 U TAB PEG SCH ×3 (09:00→18:20)
[2017-11-28] MEDS: LANSOPRAZOLE SOLUTAB 30 MG TAB NG SCH (09:00)
--- NOTE | 2017-11-28 10:37 | HHI.PR ---
Subjective Remarks His bed was changed out yesterday No new complaints per RN No new issues Seen and examined Continue current care Objective Vitals Vital Signs Date Time Temp Pulse Resp B/P (MAP) Pulse Ox O2 Delivery O2 Flow Rate FiO2 11/28/17 08:12 96 T-piece 28 11/28/17 08:00 97.7 64 16 126/65 (85) 94 11/28/17 07:00 T-Piece 11/28/17 04:09 50 18 119/59 (79) 96 11/27/17 23:27 68 18 141/69 (93) 93 11/27/17 23:23 99 T-piece 28 11/27/17 21:00 152/87 (108) 97 11/27/17 20:46 98.0 65 18 121/50 (73) 11/27/17 18:45 84 147/49 (81) 97 11/27/17 14:58 98.5 52 14 149/50 (83) 97 I/O 11/27/17 11/27/17 11/27/17 11/28/17 11/28/17 11/28/17 07:00 15:00 23:00 07:00 15:00 23:00 Intake Total 805 ml 660 ml 975 ml Output Total 700 ml 700 ml 1000 ml Balance 105 ml -40 ml -25 ml Tube Feeding 530 ml 540 ml 495 ml Tube Irrigant 120 ml Other 275 ml 480 ml Output Urine Total 700 ml 700 ml 1000 ml # Bowel Movements 3 Imaging Last Impressions Chest X-Ray 11/13/17 0000 Signed Impressions: Service Date/Time: October 15:36 - CONCLUSION: 1. Cardiomegaly with worsening pulmonary edema pattern. 2. Probable trace left pleural effusion. Alejo De La Vega MD Upper Extremity Ultrasound 11/04/17 0000 Signed Impressions: Service Date/Time: Saturday, November 04, 2017 09:57 - CONCLUSION: No thrombus observed. Subcutaneous edema noted. Deangelo Wren Jr., MD Abdomen X-Ray 11/04/17 0000 Signed Impressions: Service Date/Time: Saturday, November 04, 2017 11:58 - CONCLUSION: Gaseous distention of bowel loops could be ileus but unchanged. Benja Ramsey MD CT Angiography 11/01/17 0000 Signed Impressions: Service Date/Time: Wednesday, November 01, 2017 16:47 - CONCLUSION: No evidence for pulmonary embolism. Please see above. Choco Mustafa MD Thoracentesis 08/05/17 1535 Signed Impressions: Service Date/Time: Saturday, August 05, 2017 16:08 - CONCLUSION: Uncomplicated CT-guided thoracentesis. Sage Adler MD Chest Ultrasound 08/02/17 0000 Signed Impressions: Service Date/Time: Tuesday, August 01, 2017 22:06 - CONCLUSION: 1. Moderate right pleural effusion, as above. Alejo De La Vega MD Hip and Pelvis X-Ray 07/09/17 0000 Signed Impressions: Service Date/Time: Sunday, July 09, 2017 14:04 - CONCLUSION: Anatomic alignment. Ricardo Middleton MD FACR Liver Ultrasound 06/19/17 0000 Signed Impressions: Service Date/Time: June 13:20 - CONCLUSION: 1. Mildly increased echotexture of the liver characteristic of hepatic steatosis. 2. Gallbladder sludge. Obdulio Sam MD Head CT 05/15/17 0000 Signed Impressions: Service Date/Time: May 19:59 - CONCLUSION: 1. 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 2. No bleed or new/acute infarct. Obdulio Simms MD Gall Bladder Ultrasound 05/08/17 0000 Signed Impressions: Service Date/Time: May 08:23 - CONCLUSION: Focally unremarkable appearance of the gallbladder Obdulio Chun MD Abdomen/Pelvis CT 05/07/17 0000 Signed Impressions: Service Date/Time: Sunday, May 07, 2017 13:23 - CONCLUSION: 1. Large left pneumothorax. 2. Bilateral lower lobe consolidation and bilateral moderate size pleural effusions. 3. Significant soft tissue thickening of the right lateral chest wall and left gluteus muscle. 4. Mild ascites. The findings were called to Dr. Carney. Deangelo Zamora MD Chest CT 04/30/17 0000 Signed Impressions: Service Date/Time: Sunday, April 30, 2017 09:20 - CONCLUSION: 1. Bilateral pulmonary infiltrates more pronounced within the lower lobes with tiny bilateral pleural effusions. Material seen filling the lower lobe bronchi bilaterally either related to purulent material or perhaps mucus plugging. Deangelo Wren Jr., MD Carotid Artery Ultrasound 04/24/17 0000 Signed Impressions: Service Date/Time: April 09:45 - CONCLUSION: 1. No hemodynamically significant carotid artery stenosis. Arnie Middleton MD Hip X-Ray 04/21/17 0000 Signed Impressions: Service Date/Time: Friday, April 21, 2017 11:36 - CONCLUSION: Fluoroscopic images during placement of intramedullary siomara left femur. Benja Ramsey MD Objective Remarks GENERAL: Awake follows no commands left side is flaccid can move right side review of systems is unobtainable SKIN: Warm and dry. HEAD: Atraumatic. Normocephalic. EYES: Pupils equal and round. No scleral icterus. No injection or drainage. ENT: No nasal bleeding or discharge. Mucous membranes pink and moist. NECK: Trachea midline. No JVD. Supple tracheostomy in place CARDIOVASCULAR: Regular rate and rhythm. S1-S2 no S3 or S4 RESPIRATORY: No accessory muscle use. Clear to auscultation. Breath sounds equal bilaterally. GASTROINTESTINAL: Abdomen soft, non-tender, nondistended. Hepatic and splenic margins not palpable. PEG tube in place MUSCULOSKELETAL: Extremities without clubbing, cyanosis, or edema. No obvious deformities. NEUROLOGICAL: Awake and alert. No obvious cranial nerve deficits. Motor grossly within normal limits. Moves left side does not follow commands. No speech. PSYCHIATRIC: INAppropriate mood and affect; insight and judgment ABnormal. Procedures PEG tube trach 05/15/17 and PEG 05/16/17 Medications and IVs Current Medications Potassium Chloride 100 ml @ As Directed STK-MED ONCE .ROUTE Last administered on 04/20/17t 13:58; Start 04/20/17 at 13:50; Stop 04/20/17 at 13:51; Status DC Sodium Chloride 1,000 ml @ 250 mls/hr Q4H IV ; Start 04/20/17 at 14:30; Stop at 21:57; Status DC Dextrose/Sodium Chloride 1,000 ml @ 200 mls/hr Q5H IV Last administered on t 14:30; Start 04/20/17 at 14:30; Stop 04/20/17 at 21:57; Status DC Miscellaneous Medication ([facility]) Mix all IV Medications in Nor... UNSCH .XX ; Start 04/20/17 at 14:30; Stop 04/20/17 at 21:57; Status DC Potassium Chloride 100 ml @ 100 mls/hr Q1H PRN IV SEE PROTOCOL; Start at 14:30; Stop 04/20/17 at 21:57; Status DC Potassium Chloride 100 ml @ 50 mls/hr Q2H PRN IV SEE PROTOCOL; Start 04/20/17 at 14:30; Stop 04/20/17 at 21:57; Status DC Potassium Chloride 100 ml @ 100 mls/hr Q1H PRN IV SEE PROTOCOL; Start at 14:30; Stop 04/20/17 at 21:57; Status DC Potassium Chloride 100 ml @ 100 mls/hr Q1H PRN IV SEE PROTOCOL TABLE; Start at 14:30; Stop 04/20/17 at 21:57; Status DC Potassium Chloride 100 ml @ 50 mls/hr Q2H PRN IV SEE PROTOCOL; Start 04/20/17 at 14:30; Stop 04/20/17 at 21:57; Status DC Potassium Chloride 100 ml @ 50 mls/hr Q2H PRN IV SEE PROTOCOL TABLE; Start at 14:30; Stop 04/20/17 at 21:57; Status DC Potassium Chloride 100 ml @ 50 mls/hr Q2H PRN IV SEE PROTOCOL TABLE; Start at 14:30; Stop 04/20/17 at 21:57; Status DC Potassium Chloride 100 ml @ 50 mls/hr Q2H PRN IV SEE PROTOCOL TABLE; Start at 14:30; Stop 04/20/17 at 21:57; Status DC Insulin Human Regular (NovoLIN R INJ) 0.1 units/ Kg actual body weight BOLUS ONCE IV PUSH Last administered on 04/20/17t 15:51; Start 04/20/17 at 14:30; Stop 04/20/17 at 14:31; Status DC Insulin Human Regular 100 units/ Sodium Chloride 100 ml @ 0 mls/hr TITRATE IV ; Start 04/20/17 at 14:30; Stop 04/20/17 at 21:57; Status DC Dextrose (D50w (Vial) Inj) 50 ml Q10M PRN IV PUSH HYPOGLYCEMIA DKA -SEE COMMENTS; Start 04/20/17 at 14:30; Stop 04/20/17 at 21:57; Status DC Sodium Bicarbonate (Sodium Bicarbonate 8.4% Inj) 100 meq STAT PRN IV SEE LABEL COMMENTS; Start 04/20/17 at 14:30; Stop 04/20/17 at 21:57; Status DC Sodium Bicarbonate (Sodium Bicarbonate 8.4% Inj) 50 meq STAT PRN IV SEE LABEL COMMENTS; Start 04/20/17 at 14:30; Stop 04/20/17 at 21:57; Status DC Sodium Phosphate 15 mmol/Sodium Chloride 105 ml @ 25 mls/hr UNSCH PRN IV SEE PROTOCOL TABLE; Start 04/20/17 at 14:30; Stop 04/20/17 at 21:57; Status DC Acetaminophen (Tylenol) 650 mg Q6H PRN PO PAIN SCALE 1 TO 2 Last administered on 05/03/17 00:27; Start 04/20/17 at 14:30; Stop 05/07/17 at 12:46; Status DC Ondansetron HCl (Zofran Inj) 4 mg Q6H PRN IV PUSH NAUSEA AND VOMITING Last administered on 04/30/17 02:28; Start 04/20/17 at 15:00; Stop 08/04/17 at 16:22 ; Status DC Heparin Sodium (Porcine) (Heparin Inj) 5,000 units Q12HR SQ Last administered on 04/20/17 21:00; Start 04/20/17 at 21:00; Stop 04/21/17 at 11:44; Status DC Morphine Sulfate (Morphine Inj) 1 mg Q3H PRN IV Pain 3-5; if unable to take PO Last administered on 04/28/17 18:15; Start 04/20/17 at 17:15; Stop 05/19/17 at 07:55; Status DC Morphine Sulfate (Morphine Inj) 2 mg Q3H PRN IV Pain 6-10;if unable to take PO Last administered on 04/30/17 02:29; Start 04/20/17 at 17:15; Stop 05/19/17 at 07:55; Status DC Naloxone HCl (Narcan Inj) 0.4 mg UNSCH PRN IV SEE LABEL COMMENTS; Start at 17:15 Senna/Docusate Sodium (Nalini-Colace) 1 tab BID PO Last administered on 05/07/17 10:30; Start 04/20/17 at 21:00; Stop 05/07/17 at 12:50; Status DC Magnesium Hydroxide (Milk Of Magnesia Liq) 30 ml Q12H PRN PO MILD - MODERATE CONSTIPATION; Start 04/20/17 at 20:30; Stop 07/26/17 at 16:12; Status DC Sennosides (Senokot) 17.2 mg Q12H PRN PO MODERATE - SEVERE CONSTIPATION Last administered on 04/23/17 22:55; Start 04/20/17 at 20:30; Stop 05/19/17 at 08:05 ; Status DC Bisacodyl (Dulcolax Supp) 10 mg DAILY PRN RECTAL SEVERE CONSITIPATION; Start at 20:30; Stop 07/26/17 at 16:12; Status DC Lactulose (Lactulose Liq) 30 ml DAILY PRN PO SEVERE CONSITIPATION; Start at 20:30; Stop 05/05/17 at 09:24; Status DC Dextrose (D50w (Vial) Inj) 50 ml UNSCH PRN IV HYPOGLYCEMIA-SEE COMMENTS; Start 04/20/17 at 21:45; Stop 04/24/17 at 09:34; Status DC Glucagon (Glucagon Inj) 1 mg UNSCH PRN OTHER HYPOGLYCEMIA-SEE COMMENTS; Start 04/20/17 at 21:45; Stop 04/24/17 at 09:34; Status DC Insulin Aspart (NovoLOG SUPPLEMENTAL SCALE) 1 ACHS SLIDING SCALE SQ Last administered on 04/24/17 06:43; Start 04/21/17 at 07:00; Stop 04/24/17 at 09:35 ; Status DC Calcium Carbonate (Oscal) 500 mg ONCE ONCE PO ; Start 04/21/17 at 07:00; Stop 04/21/17 at 07:11; Status DC Sodium Phosphate 15 mmol/Sodium Chloride 155 ml @ 38.75 mls/ hr ONCE ONCE IV Last administered on 04/21/17 09:32; Start 04/21/17 at 07:00; Stop 04/21/17 at 10:59; Status DC Sodium Chloride 1,000 ml @ 75 mls/hr [id number] IV ; Start 04/21/17 at 09:03; Stop 04/21/17 at 09:03; Status DC Sodium Chloride 1,000 ml @ 100 mls/hr Q10H IV Last administered on 04/23/17 02:15; Start 04/21/17 at 09:03; Stop 04/24/17 at 09:12; Status DC Cefazolin Sodium (Ancef Inj) 1,000 mg STK-MED ONCE .ROUTE Last administered on 04/21/17 10:38; Start 04/21/17 at 10:30; Stop 04/21/17 at 10:31; Status DC Gentamicin Sulfate (Gentamicin Inj) 160 mg STK-MED ONCE .ROUTE Last administered on 04/21/17 11:36; Start 04/21/17 at 10:30; Stop 04/21/17 at 10:31 ; Status DC Vancomycin HCl (Vancomycin Inj) 1,000 mg STK-MED ONCE .ROUTE Last administered on 04/21/17 11:04; Start 04/21/17 at 10:40; Stop 04/21/17 at 10:41; Status DC Bupivacaine HCl/ Epinephrine Bitart (Sensorcaine-Epinephrine 0.25% Inj) 50 ml STK-MED ONCE .ROUTE Last administered on 04/21/17 11:39; Start 04/21/17 at 11: 39; Stop 04/21/17 at 11:40; Status DC IV Flush (NS Flush) 2 ml UNSCH PRN IVF FLUSH AFTER USING IV ACCESS; Start 04/21 at 11:45; Stop 04/24/17 at 09:34; Status DC IV Flush (NS Flush) 2 ml BID IVF Last administered on 04/23/17 07:51; Start at 21:00; Stop 04/24/17 at 09:34; Status DC Enoxaparin Sodium (Lovenox Inj) 30 mg Q24H SQ Last administered on 04/23/17 11 :01; Start 04/22/17 at 11:00; Stop 04/24/17 at 18:07; Status DC Cefazolin Sodium 1000 mg/Sodium Chloride 100 ml @ 200 mls/hr Q8H IV Last administered on 04/22/17 09:07; Start 04/21/17 at 18:00; Stop 04/22/17 at 10:29 ; Status DC Calcium/Vitamin D (Oscal-D 250-125) 250 mg TID PO Last administered on 09:56; Start 04/21/17 at 13:00; Stop 10/03/17 at 11:55; Status DC Diphenhydramine HCl (Benadryl) 25 mg Q6H PRN PO ITCHING; Start 04/21/17 at 11: 45; Stop 04/24/17 at 08:24; Status DC Acetaminophen/ Hydrocodone Bitart ([place]ter 7.5-325 Mg) 1 tab Q3H PRN PO pain 3< 10 Last administered on 05/03/17 20:17; Start 04/21/17 at 11:45; Stop 05/07/17 at 12:46; Status DC Cholecalciferol (Vitamin D3) 5,000 units DAILY PO Last administered on 09:08; Start 04/22/17 at 09:00; Stop 10/03/17 at 11:55; Status DC Ergocalciferol (Drisdol) 50,000 units ONCE ONCE PO ; Start 04/21/17 at 13:00; Stop 04/21/17 at 13:01; Status DC Midazolam HCl (Versed Inj) 2 mg STK-MED ONCE .ROUTE ; Start 04/21/17 at 12:15; Stop 04/21/17 at 12:16; Status DC Fentanyl Citrate (fentaNYL INJ) 250 mcg STK-MED ONCE .ROUTE ; Start 04/21/17 at 12:16; Stop 04/21/17 at 12:17; Status DC Morphine Sulfate (*morphine INJ PERIprocedure ONLY) 8 mg STK-MED ONCE .ROUTE Last administered on 04/21/17 12:37; Start 04/21/17 at 12:36; Stop 04/21/17 at 12:37; Status DC Miscellaneous Information ALL NURSING DEPARTME... UNSCH PRN .XX SEE LABEL COMMENTS; Start 04/21/17 at 13:00; Stop 04/22/17 at 12:59; Status DC Calcium Carbonate (Oscal) 500 mg ONCE ONCE PO ; Start 04/24/17 at 08:00; Stop 04/24/17 at 08:01; Status DC Sodium Chloride 1,000 ml @ 70 mls/hr [id number] IV ; Start 04/24/17 at 09:15; Stop 04/24/17 at 09:37; Status DC IV Flush (NS Flush) 2 ml BID IV FLUSH Last administered on 11/16/17at 09:00; Start 04/24/17 at 21:00; Stop 11/16/17 at 10:52; Status DC IV Flush (NS Flush) 2 ml UNSCH PRN IV FLUSH FLUSH AFTER USING IV ACCESS Last administered on 09/17/17at 08:48; Start 04/24/17 at 09:30; Stop 11/21/17 at 20:44 ; Status DC Sodium Chloride 1,000 ml @ 70 mls/hr [id number] IV Last administered on 03:38; Start 04/24/17 at 09:25; Stop 04/30/17 at 07:51; Status DC Aspirin (Aspirin Supp) 300 mg DAILY RECTAL Last administered on 04/26/17 08:38 ; Start 04/24/17 at 09:30; Stop 04/26/17 at 15:21; Status DC Insulin Aspart (NovoLOG SUPPLEMENTAL SCALE) 1 ACHS SQ Last administered on 04/24 17:29; Start 04/24/17 at 11:00; Stop 04/24/17 at 18:07; Status DC Dextrose (D50w (Vial) Inj) 50 ml UNSCH PRN IV PUSH HYPOGLYCEMIA-SEE COMMENTS; Start 04/24/17 at 09:30; Stop 04/24/17 at 18:07; Status DC Glucagon (Glucagon Inj) 1 mg UNSCH PRN OTHER HYPOGLYCEMIA-SEE COMMENTS; Start 04/24/17 at 09:30; Stop 04/24/17 at 18:07; Status DC Insulin Aspart (NovoLOG SUPPLEMENTAL SCALE) 1 Q4HR SQ ; Start 04/24/17 at 18:15 ; Stop 04/24/17 at 20:43; Status DC Dextrose (D50w (Vial) Inj) 25 ml UNSCH PRN IV HYPOGLYCEMIA-SEE COMMENTS; Start 04/24/17 at 18:15; Stop 04/26/17 at 20:28; Status DC Glucagon (Glucagon Inj) 1 mg UNSCH PRN IM/SQ HYPOGLYCEMIA-SEE COMMENTS; Start 04/24/17 at 18:15; Stop 05/21/17 at 13:34; Status DC Insulin Aspart (NovoLOG SUPPLEMENTAL SCALE) 1 Q4H SQ Last administered on 03:48; Start 04/24/17 at 22:00; Stop 04/26/17 at 09:43; Status DC Insulin Detemir (Levemir Inj) 10 units HS SQ Last administered on 04/25/17 23: 46; Start 04/25/17 at 21:00; Stop 04/26/17 at 09:43; Status DC Insulin Detemir (Levemir Inj) 20 units BID SQ Last administered on 04/26/17 11 :05; Start 04/26/17 at 10:00; Stop 04/27/17 at 08:34; Status DC Mannitol (Mannitol Inj) 12.5 gm Q6HR IV Last administered on 04/26/17 11:06; Start 04/26/17 at 12:00; Stop 04/28/17 at 18:33; Status DC Dextrose (D50w (Vial) Inj) 50 ml UNSCH PRN IV HYPOGLYCEMIA-SEE COMMENTS; Start 04/26/17 at 09:45; Status UNV Glucagon (Glucagon Inj) 1 mg UNSCH PRN OTHER HYPOGLYCEMIA-SEE COMMENTS; Start 04/26/17 at 09:45; Status UNV Insulin Aspart (NovoLOG SUPPLEMENTAL SCALE) 1 ACHS SLIDING SCALE SQ Last administered on 04/26/17 11:48; Start 04/26/17 at 11:00; Stop 04/26/17 at 15:24 ; Status DC Insulin Aspart (NovoLOG SUPPLEMENTAL SCALE) 1 Q4HR SQ Last administered on 04/28 09:38; Start 04/26/17 at 16:00; Stop 04/28/17 at 15:40; Status DC Aspirin (Aspirin) 325 mg DAILY DOBHOFF Last administered on 11/28/17 08:38; Start 04/27/17 at 09:00 Dextrose (D50w (Syr) Inj) 25 ml UNSCH PRN IV HYPOGLYCEMIA- SEE COMMENTS Last administered on 05/18/17 00:22; Start 04/26/17 at 20:30; Stop 05/19/17 at 08:01 ; Status DC Metoprolol Tartrate (Lopressor Inj) 5 mg Q5M PRN IV PUSH HR>150 Last administered on 06/02/17 03:21; Start 04/27/17 at 04:00; Stop 07/12/17 at 01: 05; Status DC Insulin Detemir (Levemir Inj) 15 units BID SQ Last administered on 04/28/17 09 :39; Start 04/27/17 at 09:00; Stop 04/28/17 at 15:36; Status DC Potassium Chloride 100 ml @ 50 mls/hr Q2H PRN IV For Potassium 2.8 - 3.2 mEq/L ; Start 04/27/17 at 08:45; Stop 07/12/17 at 00:31; Status DC Potassium Chloride 100 ml @ 50 mls/hr Q2H PRN IV For Potassium 2.8 - 3.2 mEq/ L Last administered on 05/18/17 10:41; Start 04/27/17 at 08:45; Stop 07/12/17 at 00:31; Status DC Potassium Bicarb/ Potassium Chloride (K-Lyte Cl Eff) 50 meq UNSCH PRN PO For Potassium 3.3 - 3.5 mEq/L; Start 04/27/17 at 08:45; Stop 07/12/17 at 00:31; Status DC Potassium Chloride 100 ml @ 25 mls/hr UNSCH PRN IV For Potassium 3.3 - 3.5 mEq /L Last administered on 05/04/17 19:07; Start 04/27/17 at 08:45; Stop 07/12/17 at 00:31; Status DC Potassium Chloride 100 ml @ 50 mls/hr Q2H PRN IV For Potassium 3.3 - 3.5 mEq/ L Last administered on 05/18/17 08:29; Start 04/27/17 at 08:45; Stop 07/12/17 at 00:31; Status DC Magnesium Sulfate 4 gm/Sodium Chloride 100 ml @ 50 mls/hr UNSCH PRN IV For Magnesium 0.9 - 1.1 mg/dL; Start 04/27/17 at 08:45; Stop 07/12/17 at 00:31; Status DC Magnesium Oxide (Mag-Ox) 800 mg UNSCH PRN PO For Magnesium 1.2 - 1.6 mg/dL; Start 04/27/17 at 08:45; Stop 07/12/17 at 00:31; Status DC Magnesium Sulfate 2 gm/Sodium Chloride 100 ml @ 50 mls/hr UNSCH PRN IV For Magnesium 1.2 - 1.6 mg/dL; Start 04/27/17 at 08:45; Stop 07/12/17 at 00:31; Status DC Potassium Phosphate (K-Phos) 2,000 mg Q4H PRN PO For Phosphorus < 2.5 mg/dL Last administered on 04/28/17 15:38; Start 04/27/17 at 08:45; Stop 07/12/17 at 00:31; Status DC Sodium Phosphate 30 mmol/Sodium Chloride 250 ml @ 42 mls/hr UNSCH PRN IV For Phosphorus < 2.5 mg/dL Last administered on 04/27/17 23:59; Start 04/27/17 at 08:45; Stop 07/12/17 at 00:31; Status DC Potassium Phosphate (K-Phos) 2,000 mg UNSCH PRN PO/TUBE SEE LABEL COMMENTS Last administered on 05/08/17 06:32; Start 04/27/17 at 08:45; Stop 07/12/17 at 00:31; Status DC Potassium Phosphate 30 mmol/ Sodium Chloride 260 ml @ 42 mls/hr UNSCH PRN IV SEE LABEL COMMENTS Last administered on 05/04/17 20:54; Start 04/27/17 at 08:45 ; Stop 07/12/17 at 00:31; Status DC Insulin Detemir (Levemir Inj) 10 units BID SQ Last administered on 04/30/17 21 :00; Start 04/28/17 at 21:00; Stop 05/01/17 at 07:49; Status DC Pantoprazole Sodium (Protonix Inj) 40 mg Q24H IV PUSH Last administered on 17:00; Start 04/28/17 at 17:00; Stop 05/07/17 at 12:52; Status DC Insulin Aspart (NovoLOG SUPPLEMENTAL SCALE) 1 ACHS SLIDING SCALE SQ Last administered on 05/18/17 21:00; Start 04/28/17 at 16:00; Stop 05/19/17 at 07:55 ; Status DC Sodium Chloride 250 ml @ 15 mls/hr ONCE ONCE IV ; Start 04/28/17 at 18:00; Stop 04/28/17 at 18:33; Status DC Acetaminophen (Ofirmev 1000 Mg/ 100 ml Inj) 1,000 mg NOW ONCE IV Last administered on 04/29/17 01:00; Start 04/29/17 at 01:00; Stop 04/29/17 at 01:01 ; Status DC Iohexol (Omnipaque 350 Inj) 75 ml STK-MED ONCE IVCONTRAST Last administered on 04/26/17 04:26; Start 04/26/17 at 04:26; Stop 04/29/17 at 10:24; Status DC Fluconazole/ Sodium Chloride 100 ml @ 100 mls/hr Q24H IV Last administered on 04/30/17 14:59; Start 04/29/17 at 14:00; Stop 04/30/17 at 15:40; Status DC Metronidazole (Flagyl) 500 mg Q8HR DOBHOFF Last administered on 05/13/17 13:37 ; Start 04/29/17 at 14:00; Stop 05/13/17 at 16:14; Status DC Albuterol/ Ipratropium (Duoneb Neb) 1 ampule Q4HR NEB PRN NEB CONGESTION Last administered on 05/04/17 20:38; Start 04/30/17 at 04:45; Stop 05/07/17 at 12:46; Status DC Bumetanide (Bumex Inj) 1 mg ONCE ONCE IV PUSH Last administered on 04/30/17 10:14; Start 04/30/17 at 08:00; Stop 04/30/17 at 08:01; Status DC Potassium Chloride/Sodium Chloride 1,000 ml @ 84 mls/hr [id number] IV Last administered on 05/01/17 07:00; Start 04/30/17 at 08:00; Stop 05/01/17 at 07:32 ; Status DC Albuterol/ Ipratropium (Duoneb Neb) 1 ampule Q6HR NEB NEB Last administered on 05/04/17 07:52; Start 04/30/17 at 10:00; Stop 05/04/17 at 09:59; Status DC Cefepime HCl 2000 mg/Sodium Chloride 100 ml @ 200 mls/hr Q8H IV Last administered on 05/04/17 07:53; Start 04/30/17 at 09:00; Stop 05/04/17 at 08:22; Status DC Micafungin Sodium 100 mg/Sodium Chloride 100 ml @ 100 mls/hr Q24H IV Last administered on 05/07/17 10:29; Start 04/30/17 at 09:00; Stop 05/07/17 at 13:49; Status DC Etomidate (Amidate Inj) 20 mg STK-MED ONCE .ROUTE Last administered on 15:07; Start 04/30/17 at 14:56; Stop 04/30/17 at 14:57; Status DC Midazolam HCl (Versed Inj) 5 mg STK-MED ONCE .ROUTE Last administered on 15:06; Start 04/30/17 at 14:57; Stop 04/30/17 at 14:58; Status DC Rocuronium [place] (Zemuron Inj) 50 mg STK-MED ONCE .ROUTE Last administered on 04/30/17 15:07; Start 04/30/17 at 14:58; Stop 04/30/17 at 14:59; Status DC Etomidate (Amidate Inj) 20 mg NOW ONCE IV PUSH ; Start 04/30/17 at 15:30; Stop 04/30/17 at 15:31; Status DC Midazolam HCl (Versed Inj) 5 mg NOW ONCE IV PUSH ; Start 04/30/17 at 15:30; Stop 04/30/17 at 15:32; Status DC Rocuronium [place] (Zemuron Inj) 50 mg NOW ONCE IV PUSH ; Start 04/30/17 at 15: 45; Stop 04/30/17 at 15:46; Status DC Vancomycin HCl 1000 mg/Sodium Chloride 250 ml @ 250 mls/hr Q12H IV ; Start at 15:45; Status Cancel Pharmacy Profile Note 1,000 ml @ 30 mls/hr UNSCH OTHER ; Start 04/30/17 at 15: 45; Stop 05/04/17 at 08:22; Status DC Vancomycin HCl 1250 mg/Sodium Chloride 262.5 ml @ 250 mls/hr Q12H IV Last administered on 05/03/17 07:24; Start 04/30/17 at 18:00; Stop 05/03/17 at 15:39; Status DC Miscellaneous Information SPECIFIC LAB TO BE DRAWN:VANCOMYCIN TROUGH DATE TO... ONCE ONCE .XX ; Start 05/02/17 at 05:45; Stop 05/02/17 at 05:46; Status DC Sodium Chloride 1,000 ml @ 84 mls/hr [id number] IV Last administered on 05/02/17 09:24; Start 05/01/17 at 07:30; Stop 05/02/17 at 11:49; Status DC Insulin Detemir (Levemir Inj) 20 units Q12H SQ Last administered on 05/02/17 09 :23; Start 05/01/17 at 09:00; Stop 05/02/17 at 12:07; Status DC Enoxaparin Sodium (Lovenox Inj) 40 mg Q24H SQ Last administered on 07/14/17 07:47; Start 05/01/17 at 08:00; Stop 07/14/17 at 12:05; Status DC Lactated Ringer's 1,000 ml @ 75 mls/hr [id number] IV Last administered on 05:57; Start 05/02/17 at 13:00; Stop 05/07/17 at 16:50; Status DC Insulin Detemir (Levemir Inj) 25 units Q12H SQ Last administered on 05/04/17 07 :50; Start 05/02/17 at 21:00; Stop 05/05/17 at 09:20; Status DC Vancomycin HCl 1250 mg/Sodium Chloride 262.5 ml @ 262.5 mls/ hr Q24H IV Last administered on 05/04/17 05:21; Start 05/04/17 at 06:00; Stop 05/04/17 at 08:22; Status DC Miscellaneous Information SPECIFIC LAB TO BE ROLF... ONCE ONCE .XX ; Start at 05:45; Stop 05/06/17 at 05:45; Status DC Levofloxacin/ Dextrose 150 ml @ 100 mls/hr Q24H IV Last administered on 10:00; Start 05/04/17 at 09:00; Stop 05/13/17 at 16:14; Status DC Furosemide (Lasix Inj) 10 mg BID@09,18 IV PUSH Last administered on 05/05/17 09 :05; Start 05/04/17 at 18:00; Stop 05/05/17 at 09:01; Status DC Albuterol/ Ipratropium (Duoneb Neb) 1 ampule Q6HR ALT NEB NEB Last administered on 05/05/17 04:30; Start 05/05/17 at 01:00; Stop 05/05/17 at 04:38; Status DC Albuterol/ Ipratropium (Duoneb Neb) 1 ampule Q6HR NEB NEB Last administered on 05/08/17 09:56; Start 05/05/17 at 10:00; Stop 05/08/17 at 10:15; Status DC Insulin Detemir (Levemir Inj) 10 units Q12H SQ Last administered on 05/07/17 10 :43; Start 05/05/17 at 21:00; Stop 05/07/17 at 13:54; Status DC Lactulose (Lactulose Liq) 30 ml DAILY PO Last administered on 05/07/17 10:29; Start 05/05/17 at 09:30; Stop 05/07/17 at 12:50; Status DC Sodium Chloride 1,000 ml @ 999 mls/hr BOLUS ONCE IV Last administered on 09:08; Start 05/06/17 at 07:45; Stop 05/06/17 at 08:45; Status DC Propofol (Diprivan 200 Mg/20 ml Inj) 200 mg STK-MED ONCE IV ; Start 04/21/17 at 12:12; Stop 05/06/17 at 12:13; Status DC Ephedrine Sulfate (ePHEDrine/NS 25 MG/5 ML SYR) 25 mg STK-MED ONCE IV ; Start at 12:12; Stop 05/06/17 at 12:13; Status DC Neostigmine Methylsulfate (Prostigmin Inj) 3 mg STK-MED ONCE IV ; Start at 12:12; Stop 05/06/17 at 12:13; Status DC Phenylephrine HCl (Neosynephrine/ NS 1000 Mcg/10ml Syr) 1,000 mcg STK-MED ONCE IV ; Start 04/21/17 at 12:12; Stop 05/06/17 at 12:13; Status DC Ondansetron HCl (Zofran Inj) 4 mg STK-MED ONCE IV PUSH ; Start 04/21/17 at 12:12 ; Stop 05/06/17 at 12:13; Status DC Albumin Human (Albumin 5% Inj) 25 gm NOW ONCE IV Last administered on 21:11; Start 05/06/17 at 20:45; Stop 05/06/17 at 20:46; Status DC Albuterol Sulfate (Albuterol Neb) 2.5 mg Q2HR NEB PRN NEB DYSPNEA; Start at 12:30; Stop 05/07/17 at 14:30; Status DC Bumetanide (Bumex Inj) 1 mg ONCE ONCE IV PUSH Last administered on 05/07/17 15 :07; Start 05/07/17 at 15:00; Stop 05/07/17 at 15:01; Status DC Metolazone (Zaroxolyn) 2.5 mg ONCE ONCE PO Last administered on 05/07/17 16:36 ; Start 05/07/17 at 15:30; Stop 05/07/17 at 15:31; Status DC Potassium Chloride (KCl Powder) 20 meq ONCE ONCE PO Last administered on 15:00; Start 05/07/17 at 15:00; Stop 05/07/17 at 15:01; Status DC Docusate Sodium (Colace Liq) 100 mg Q12HR PO Last administered on 07/22/17 21 :52; Start 05/07/17 at 21:00; Stop 07/26/17 at 16:13; Status DC Sennosides (Senna Liq) 8.8 mg BID OG-TUBE Last administered on 05/17/17 09:11 ; Start 05/07/17 at 21:00; Stop 05/19/17 at 08:05; Status DC Lactulose (Lactulose Liq) 30 ml QID PO Last administered on 05/16/17 20:56; Start 05/07/17 at 18:00; Stop 05/19/17 at 08:05; Status DC Polyethylene Glycol (Miralax) 17 gm BID OG-TUBE Last administered on 05/16/17 20:56; Start 05/07/17 at 21:00; Stop 05/19/17 at 08:05; Status DC Mineral Oil (Fleet Mineral Oil Enema) 118 ml ONCE ONCE RECTAL ; Start 05/07/17 at 13:00; Stop 05/07/17 at 14:37; Status DC Mineral Oil (Mineral Oil Liq) 30 ml ONCE ONCE PO Last administered on 16:36; Start 05/07/17 at 16:00; Stop 05/07/17 at 16:02; Status DC Methylnaltrexone [place] (Relistor Inj) 12 mg ONCE ONCE SQ Last administered on 05/07/17 16:37; Start 05/07/17 at 15:00; Stop 05/07/17 at 15:01; Status DC Albuterol Sulfate (Albuterol Neb) 2.5 mg Q2HR NEB PRN NEB DYSPNEA Last administered on 07/06/17 23:51; Start 05/07/17 at 13:00; Stop 07/16/17 at 16:36 ; Status DC Lansoprazole (Prevacid Odt) 30 mg DAILY NG Last administered on 11/27/17at 08:09 ; Start 05/08/17 at 09:00 Iohexol (Omnipaque 350 Inj) 60 ml STK-MED ONCE IVCONTRAST Last administered on 05/07/17 13:35; Start 05/07/17 at 13:35; Stop 05/07/17 at 13:36; Status DC Insulin Detemir (Levemir Inj) 15 units Q12H SQ Last administered on 05/10/17 20 :49; Start 05/07/17 at 21:00; Stop 05/11/17 at 09:21; Status DC Fentanyl Citrate (fentaNYL INJ) 100 mcg STK-MED ONCE .ROUTE ; Start 05/07/17 at 14:17; Stop 05/07/17 at 14:18; Status DC Midazolam HCl (Versed Inj) 5 mg STK-MED ONCE .ROUTE ; Start 05/07/17 at 14:18; Stop 05/07/17 at 14:19; Status DC Mineral Oil (Fleet Mineral Oil Enema) 118 ml ONCE ONCE RECTAL Last administered on 05/07/17 16:35; Start 05/07/17 at 16:00; Stop 05/07/17 at 16:02; Status DC Fentanyl Citrate (fentaNYL INJ) 50 mcg NOW ONCE IV Last administered on 17:21; Start 05/07/17 at 17:15; Stop 05/07/17 at 17:20; Status DC Midazolam HCl (Versed Inj) 1 mg NOW ONCE IV Last administered on 05/07/17 17: 15; Start 05/07/17 at 17:15; Stop 05/07/17 at 17:20; Status DC Potassium Chloride (KCl Powder) 80 meq ONCE ONCE PO Last administered on 10:29; Start 05/08/17 at 10:00; Stop 05/08/17 at 10:01; Status DC Potassium Chloride 100 ml @ 100 mls/hr Q1H IV Last administered on 05/08/17 15 :24; Start 05/08/17 at 10:00; Stop 05/08/17 at 12:59; Status DC Potassium Phos/ Sodium Phos (K-Phos Neutral) 1,000 mg ONCE ONCE PO Last administered on 05/08/17 10:46; Start 05/08/17 at 10:00; Stop 05/08/17 at 10:01; Status DC Bumetanide (Bumex Inj) 1 mg ONCE ONCE IV PUSH Last administered on 05/08/17 10 :28; Start 05/08/17 at 10:00; Stop 05/08/17 at 10:01; Status DC Albuterol/ Ipratropium (Duoneb Neb) 1 ampule Q6HR NEB NEB Last administered on 05/12/17 15:53; Start 05/08/17 at 16:00; Stop 05/12/17 at 15:59; Status DC Furosemide (Lasix Inj) 20 mg BID@09,18 IV PUSH Last administered on 05/10/17 18 :00; Start 05/10/17 at 10:00; Stop 05/11/17 at 06:15; Status DC Furosemide (Lasix Inj) 40 mg BID@0900,1800 IV PUSH Last administered on 17:53; Start 05/11/17 at 09:00; Stop 05/18/17 at 08:06; Status DC Acetazolamide Sodium (Diamox Inj) 500 mg DAILY IV PUSH Last administered on 08:54; Start 05/11/17 at 09:30; Stop 05/12/17 at 23:00; Status DC Insulin Detemir (Levemir Inj) 5 units Q12H SQ Last administered on 05/17/17 09 :12; Start 05/11/17 at 21:00; Stop 05/18/17 at 08:06; Status DC Protein (Beneprotein Powder) 1 pack TID G-TUBE Last administered on 10/03/17at 09 :00; Start 05/12/17 at 13:00; Stop 10/03/17 at 11:56; Status DC Acetazolamide Sodium (Diamox Inj) 500 mg ONCE ONCE IV PUSH Last administered on 05/13/17 22:40; Start 05/13/17 at 22:00; Stop 05/13/17 at 22:01; Status DC Cisatracurium Besylate (Nimbex Inj) 12 mg ONCE ONCE IV PUSH Last administered on 05/15/17 15:15; Start 05/14/17 at 17:45; Stop 05/14/17 at 17:49; Status DC Fentanyl Citrate (fentaNYL INJ) 100 mcg [employer] IV PUSH Last administered on 15:15; Start 05/14/17 at 17:45; Stop 05/15/17 at 17:44; Status DC Midazolam HCl (Versed Inj) 2 mg [employer] IV PUSH Last administered on 15:15; Start 05/14/17 at 17:45; Stop 05/15/17 at 17:44; Status DC Cisatracurium Besylate (Nimbex Inj) 12 mg [employer] IV PUSH ; Start 05/14/17 at 18:00; Stop 05/15/17 at 17:59; Status DC Cefazolin Sodium 1000 mg/Sodium Chloride 100 ml @ 200 mls/hr [employer] IV Last administered on 05/16/17 12:35; Start 05/15/17 at 17:15; Stop 05/18/17 at 17:14 ; Status DC Propofol (Diprivan 200 Mg/20 ml Inj) 210 mg STK-MED ONCE IV ; Start 05/16/17 at 13:30; Stop 05/16/17 at 18:25; Status DC Sodium Chloride 1,000 ml @ 75 mls/hr [id number] IV Last administered on 12:42; Start 05/17/17 at 11:45; Stop 05/19/17 at 07:55; Status DC Furosemide (Lasix Inj) 40 mg DAILY IV PUSH Last administered on 05/18/17 08:29 ; Start 05/18/17 at 09:00; Stop 05/19/17 at 07:55; Status DC Furosemide (Lasix Liq) 40 mg DAILY NG Last administered on 06/18/17 11:02; Start 05/19/17 at 09:00; Stop 06/19/17 at 06:54; Status DC Dextrose (D50w (Vial) Inj) 25 ml UNSCH PRN IV PUSH HYPOGLYCEMIA-SEE COMMENTS; Start 05/19/17 at 08:00; Stop 05/20/17 at 20:59; Status DC Insulin Human Regular (NovoLIN R SUPPLEMENTAL SCALE) 1 Q4HR SQ Last administered on 05/21/17 12:00; Start 05/19/17 at 08:00; Stop 05/21/17 at 13:15 ; Status DC Insulin Detemir (Levemir Inj) 8 units DAILY SQ Last administered on 05/20/17 09:00; Start 05/19/17 at 09:00; Stop 05/21/17 at 13:15; Status DC Dextrose (D50w (Syr) Inj) 25 ml UNSCH PRN IV PUSH HYPOGLYCEMIA-SEE COMMENTS Last administered on 05/20/17 21:14; Start 05/20/17 at 21:00; Stop 05/21/17 at 13:34; Status DC Insulin Detemir (Levemir Inj) 7 units Q12H SQ Last administered on 05/22/17 09 :00; Start 05/21/17 at 21:00; Stop 05/22/17 at 17:19; Status DC Dextrose (D50w (Vial) Inj) 50 ml UNSCH PRN IV PUSH HYPOGLYCEMIA-SEE COMMENTS; Start 05/21/17 at 13:15; Stop 05/22/17 at 17:06; Status DC Glucagon (Glucagon Inj) 1 mg UNSCH PRN OTHER HYPOGLYCEMIA-SEE COMMENTS; Start 05/21/17 at 13:15; Stop 10/08/17 at 11:08; Status DC Insulin Aspart (NovoLOG SUPPLEMENTAL SCALE) 1 ACHS SLIDING SCALE SQ Last administered on 06/11/17 11:56; Start 05/21/17 at 17:00; Stop 06/12/17 at 07: 10; Status DC Dextrose (D50w (Syr) Inj) 50 ml UNSCH PRN IV PUSH HYPOGLYCEMIA-SEE COMMENTS Last administered on 10/04/17at 01:57; Start 05/22/17 at 17:15; Stop 10/08/17 at 11 :08; Status DC Insulin Detemir (Levemir Inj) 5 units Q12H SQ Last administered on 05/27/17 21 :22; Start 05/22/17 at 21:00; Stop 05/28/17 at 09:50; Status DC Enalaprilat (Vasotec Inj) 1.25 mg Q6H PRN IV PUSH SBP> OR = 180, DBP> OR = 100 Last administered on 05/31/17 05:28; Start 05/24/17 at 22:45; Stop 05/31/17 at 07:41; Status DC Water (Free Water) VOLUME: 300 ML Q6HR G-TUBE Last administered on 06/10/17 06:00; Start 05/25/17 at 14:15; Stop 06/10/17 at 11:23; Status DC Acetazolamide Sodium (Diamox Inj) 500 mg ONCE ONCE IV PUSH Last administered on 05/26/17 08:54; Start 05/26/17 at 09:00; Stop 05/26/17 at 09:01; Status DC Ceftriaxone Sodium 1000 mg/ Sodium Chloride 100 ml @ 200 mls/hr Q24H IV Last administered on 05/27/17 08:32; Start 05/26/17 at 09:00; Stop 05/27/17 at 15:41 ; Status DC Cefepime HCl 1000 mg/Sodium Chloride 100 ml @ 200 mls/hr Q12H IV Last administered on 06/03/17 05:32; Start 05/27/17 at 16:00; Stop 06/03/17 at 09:12 ; Status DC Sodium Chloride 250 ml @ 15 mls/hr ONCE ONCE IV Last administered on 09:45; Start 05/28/17 at 09:45; Stop 05/29/17 at 02:24; Status DC Acetaminophen (Tylenol) 650 mg Q4H PRN PO SEE LABEL COMMENTS; Start 05/28/17 at 10:00; Stop 06/10/17 at 11:23; Status DC Diphenhydramine HCl (Benadryl) 25 mg Q4H PRN PO SEE LABEL COMMENTS; Start 05/28 at 10:00; Stop 06/02/17 at 07:40; Status DC Furosemide (Lasix Inj) 20 mg ONCE ONCE IV PUSH ; Start 05/28/17 at 10:00; Stop 05/28/17 at 10:01; Status DC Insulin Detemir (Levemir Inj) 7 units Q12H SQ Last administered on 06/20/17 21:12; Start 05/28/17 at 21:00; Stop 06/21/17 at 07:27; Status DC Artificial Tears (Tears Naturale Opth Soln) 1 drop Q4H PRN EACH EYE DRY EYE; Start 05/29/17 at 21:15; Stop 06/12/17 at 07:10; Status DC Hydralazine HCl (Apresoline Inj) 20 mg Q4H PRN IV PUSH SBP >160 Last administered on 06/21/17 04:06; Start 05/31/17 at 07:45; Stop 06/21/17 at 07: 23; Status DC Lisinopril (Prinivil) 10 mg Q12HR PO Last administered on 06/20/17 21:12; Start 05/31/17 at 09:00; Stop 06/21/17 at 07:23; Status DC Artificial Tears (Tears Naturale Opth Soln) 1 drop Q8HR EACH EYE Last administered on 11/28/17at 05:10; Start 06/12/17 at 07:15 Insulin Aspart (NovoLOG SUPPLEMENTAL SCALE) 1 Q6HR SQ Last administered on 18:00; Start 06/12/17 at 12:00; Stop 07/16/17 at 16:36; Status DC Sodium Chloride (Sodium Chloride) 2 gm ONCE ONCE PEG Last administered on 09:41; Start 06/12/17 at 07:00; Stop 06/12/17 at 07:12; Status DC Albuterol/ Ipratropium (Duoneb Neb) 1 ampule Q6HR NEB NEB Last administered on 06/16/17 03:46; Start 06/12/17 at 10:00; Stop 06/16/17 at 07:10; Status DC Insulin Aspart (NovoLOG INJ) 10 units ONCE ONCE SQ Last administered on 10:00; Start 06/12/17 at 10:00; Stop 06/12/17 at 10:32; Status DC Erythromycin Ethylsuccinate (Ees) 250 mg Q8HR PO ; Start 06/16/17 at 02:00; Stop 06/16/17 at 02:00; Status DC Methylnaltrexone [place] (Relistor Inj) 12 mg ONCE ONCE SQ Last administered on 06/16/17 01:40; Start 06/16/17 at 02:00; Stop 06/16/17 at 02:01; Status DC Erythromycin (Erythromycin Ec) 250 mg Q8HR PO Last administered on 06/18/17 12:27; Start 06/16/17 at 02:00; Stop 06/18/17 at 22:53; Status DC Albuterol/ Ipratropium (Duoneb Neb) 1 ampule Q6HR NEB NEB Last administered on 06/20/17 08:04; Start 06/16/17 at 10:00; Stop 06/20/17 at 09:24; Status DC Erythromycin Ethylsuccinate (Ees 400 Mg/5 ml Liq) 250 mg Q8H PO Last administered on 06/19/17 01:19; Start 06/19/17 at 00:00; Stop 06/19/17 at 06 :54; Status DC Polyethylene Glycol (Miralax) 17 gm DAILY PO ; Start 06/19/17 at 09:00; Stop 06/23/17 at 06:47; Status DC Albuterol/ Ipratropium (Duoneb Neb) 1 ampule Q6HR NEB NEB Last administered on 06/24/17 08:30; Start 06/20/17 at 10:00; Stop 06/24/17 at 09:59; Status DC Hydralazine HCl (Apresoline Inj) 10 mg Q1H PRN IV PUSH SBP >160 Last administered on 07/10/17 13:51; Start 06/21/17 at 07:30; Stop 07/12/17 at 00: 26; Status DC Lisinopril (Prinivil) 20 mg Q12HR PO Last administered on 08/22/17 21:16; Start 06/21/17 at 09:00; Stop 08/23/17 at 07:26; Status DC Labetalol HCl (Trandate Inj) 10 mg Q1H PRN IV PUSH SBP>160, DBP>90, HR>65 Last administered on 07/08/17 05:02; Start 06/21/17 at 07:30; Stop 07/12/17 at 00: 26; Status DC Nitroglycerin (Nitroglycerin 2% Oint) 2 inch Q6H PRN TOPICAL SBP>160, DBP>90 Last administered on 06/30/17 14:37; Start 06/21/17 at 08:00 Piperacillin Sod/ Tazobactam Sod 100 ml @ 200 mls/hr Q6H IV Last administered on 06/29/17 02:07; Start 06/21/17 at 09:00; Stop 06/29/17 at 08:59; Status DC Pharmacy Profile Note 0 ml @ 0 mls/hr UNSCH OTHER ; Start 06/21/17 at 07:30; Stop 06/23/17 at 06:46; Status DC Guaifenesin (Robitussin Liq) 400 mg Q8HR PEG Last administered on 06/29/17 06 :02; Start 06/21/17 at 14:00; Stop 06/29/17 at 13:59; Status DC Sodium Chloride (Sodium Chloride 3% Neb) 2 ml Q6HR NEB NEB Last administered on 06/29/17 08:21; Start 06/21/17 at 10:00; Stop 06/29/17 at 09:59; Status DC Insulin Detemir (Levemir Inj) 10 units Q12H SQ Last administered on 07/19/17 08:39; Start 06/21/17 at 09:00; Stop 07/19/17 at 09:26; Status DC Vancomycin HCl 1000 mg/Sodium Chloride 250 ml @ 250 mls/hr ONCE ONCE IV Last administered on 06/21/17 11:50; Start 06/21/17 at 12:00; Stop 06/21/17 at 12 :59; Status DC Vancomycin HCl 750 mg/Sodium Chloride 257.5 ml @ 250 mls/hr Q12H IV Last administered on 06/23/17 00:02; Start 06/22/17 at 00:00; Stop 06/23/17 at 06 :46; Status DC Miscellaneous Information SPECIFIC LAB TO BE ... ONCE ONCE .XX ; Start at 23:45; Stop 06/22/17 at 23:46; Status DC Miscellaneous Information SPECIFIC LAB TO BE ... ONCE ONCE .XX ; Start at 11:45; Stop 06/23/17 at 11:46; Status DC Polyethylene Glycol (Miralax) 17 gm BID PEG Last administered on 07/02/17 08: 35; Start 06/23/17 at 09:00; Stop 07/09/17 at 08:04; Status DC Albuterol/ Ipratropium (Duoneb Neb) 1 ampule Q6HR NEB NEB Last administered on 07/08/17 10:22; Start 07/04/17 at 10:00; Stop 07/08/17 at 09:59; Status DC Polyethylene Glycol (Miralax) 17 gm DAILY PEG Last administered on 10/02/17at 07: 59; Start 07/09/17 at 09:00; Stop 10/03/17 at 11:56; Status DC Clonidine (Catapres) 0.1 mg Q6H PRN PO SBP >160 Last administered on 16:22; Start 07/12/17 at 00:30; Stop 10/03/17 at 11:55; Status DC Heparin Sodium (Porcine) (Heparin Inj) 5,000 units Q8HR SQ Last administered on 11/28/17 05:10; Start 07/15/17 at 08:00 Sodium Chloride 1,000 ml @ 42 mls/hr [id number] IV Last administered on 15:15; Start 07/14/17 at 14:45; Stop 07/15/17 at 08:00; Status DC Albuterol/ Ipratropium (Duoneb Neb) 2.5 ampule Q6HR NEB NEB ; Start 07/16/17 at 16:45; Stop 07/16/17 at 19:01; Status DC Hyoscyamine Sulfate (Levsin Liq) 0.125 mg BID PEG ; Start 07/16/17 at 21:00; Stop 07/16/17 at 21:00; Status DC Albuterol Sulfate (Albuterol Neb) 2.5 mg Q6HR NEB INH Last administered on 19:49; Start 07/16/17 at 22:00; Stop 07/20/17 at 21:59; Status DC Acetylcysteine (Mucomyst 20% Neb) 2 ml Q8HR NEB PRN NEB SECRETIONS; Start at 08:00; Stop 07/17/17 at 08:00; Status DC Acetylcysteine (Mucomyst 20% Neb) 2 ml Q8HR NEB PRN NEB SECRETIONS Last administered on 07/21/17 03:31; Start 07/17/17 at 08:00; Stop 07/21/17 at 07 :59; Status DC Trimethoprim/ Sulfamethoxazole (Bactrim 800-160 Mg/20 ml Liq) 20 ml Q12H PO ; Start 07/17/17 at 09:45; Stop 07/17/17 at 09:50; Status DC Trimethoprim/ Sulfamethoxazole (Bactrim 800-160 Mg/20 ml Liq) 20 ml Q12HR PEG Last administered on 07/19/17 21:27; Start 07/17/17 at 11:00; Stop 07/19/17 at 21:01; Status DC Insulin Detemir (Levemir Inj) 15 units Q12H SQ Last administered on 07/20/17 08:00; Start 07/19/17 at 21:00; Stop 07/20/17 at 08:26; Status DC Insulin Detemir (Levemir Inj) 18 units Q12H SQ Last administered on 07/22/17 13:46; Start 07/20/17 at 21:00; Stop 07/22/17 at 14:39; Status DC Trimethoprim/ Sulfamethoxazole (Bactrim 800-160 Mg/20 ml Liq) 20 ml Q12HR PEG Last administered on 07/21/17 08:12; Start 07/20/17 at 15:00; Stop 07/21/17 at 13:16; Status DC Albuterol/ Ipratropium (Duoneb Neb) 1 ampule ONCE ONCE NEB Last administered on 07/21/17 03:30; Start 07/21/17 at 03:30; Stop 07/21/17 at 03:31; Status DC Albuterol/ Ipratropium (Duoneb Neb) 1 ampule ONCE PRN NEB SHORTNESS OF BREATH; Start 07/21/17 at 04:15; Stop 07/21/17 at 07:30; Status DC Albuterol/ Ipratropium (Duoneb Neb) 1 ampule Q6HR NEB NEB Last administered on 07/25/17 09:05; Start 07/21/17 at 10:00; Stop 07/25/17 at 09:59; Status DC Acetylcysteine (Mucomyst 20% Neb) 2 ml Q8HR NEB PRN NEB SECRETIONS; Start at 07:00; Stop 07/21/17 at 07:24; Status DC Piperacillin Sod/ Tazobactam Sod 100 ml @ 200 mls/hr Q6H IV Last administered on 07/25/17 04:56; Start 07/21/17 at 10:00; Stop 07/25/17 at 07:50; Status DC Azithromycin 500 mg/Sodium Chloride 250 ml @ 250 mls/hr Q24H IV Last administered on 07/25/17 10:58; Start 07/21/17 at 11:00; Stop 07/25/17 at 13 :36; Status DC Insulin Aspart (NovoLOG SUPPLEMENTAL SCALE) 1 Q6HR SQ Last administered on at 06:47; Start 07/21/17 at 18:00; Stop 10/08/17 at 09:45; Status DC Insulin Detemir (Levemir Inj) 15 units Q12H SQ Last administered on 07/26/17 23:10; Start 07/22/17 at 21:00; Stop 07/27/17 at 09:00; Status DC Ceftolozane/ Tazobactam 1500 mg/Sodium Chloride 100 ml @ 100 mls/hr Q8H IV Last administered on 08/06/17 08:25; Start 07/25/17 at 09:00; Stop 08/06/17 at 12:58; Status DC Fluconazole/ Sodium Chloride 100 ml @ 100 mls/hr ONCE ONCE IV Last administered on 07/26/17 17:00; Start 07/26/17 at 17:00; Stop 07/26/17 at 17 :59; Status DC Insulin Detemir (Levemir Inj) 7 units Q12HR SQ Last administered on 09/14/17 07:32; Start 07/27/17 at 09:00; Stop 09/14/17 at 15:42; Status DC Furosemide (Lasix Liq) 40 mg ONCE ONCE NG Last administered on 07/29/17 17: 29; Start 07/29/17 at 16:00; Stop 07/29/17 at 16:02; Status DC Lactated Ringer's 1,000 ml @ 30 mls/hr Q24H PRN IV SEE LABEL COMMENTS; Start 08/03/17 at 06:30; Stop 08/06/17 at 06:29; Status DC Lidocaine/ Epinephrine (Xylocaine-Epi 1%-1:100,000 Inj) 20 ml STK-MED ONCE .ROUTE Last administered on 08/05/17 17:58; Start 08/05/17 at 17:58; Stop 08/05/17 at 17:59; Status DC Colistin Sulfate (Coly-Mycin M Neb) 75 mg Q8HR NEB NEB Last administered on 08:25; Start 08/06/17 at 16:00; Stop 08/12/17 at 15:59; Status DC Furosemide (Lasix Liq) 40 mg ONCE ONCE NG Last administered on 08/08/17 12: 54; Start 08/08/17 at 12:15; Stop 08/08/17 at 12:16; Status DC Albuterol/ Ipratropium (Duoneb Neb) 1 ampule Q6HR NEB PRN NEB WHEEZING Last administered on 10/16/17 07:17; Start 08/10/17 at 14:00; Stop 10/25/17 at 08: 28; Status DC Lisinopril (Prinivil) 30 mg Q12HR PO Last administered on 08/24/17 21:00; Start 08/23/17 at 09:00; Stop 08/25/17 at 07:46; Status DC Lisinopril (Prinivil) 40 mg Q12HR PO Last administered on 09/15/17 20:54; Start 08/25/17 at 09:00; Stop 09/15/17 at 22:16; Status DC Amlodipine Besylate (Norvasc) 5 mg DAILY PO Last administered on 09/01/17 09:24 ; Start 08/31/17 at 09:00; Stop 09/02/17 at 06:48; Status DC Amlodipine Besylate (Norvasc) 10 mg DAILY PO Last administered on 10/02/17 08: 00; Start 09/02/17 at 09:00; Stop 10/03/17 at 11:55; Status DC Metoprolol Tartrate (Lopressor) 12.5 mg Q12HR PO Last administered on 09/06/17at 08:46; Start 09/05/17 at 21:00; Stop 10/03/17 at 11:55; Status DC Miscellaneous (Pill Splitter) 1 ea UNSCH PRN OTHER SEE LABEL COMMENTS; Start at 11:00 Trimethoprim/ Sulfamethoxazole (Bactrim 800-160 Mg/20 ml Liq) 20 ml Q12H PEG ; Start 09/09/17 at 20:00; Stop 09/09/17 at 20:00; Status DC Trimethoprim/ Sulfamethoxazole (Bactrim Ds 800-160 Mg) 1 tab Q12HR PEG Last administered on 09/29/17at 09:36; Start 09/09/17 at 21:00; Stop 09/29/17 at 22:01 ; Status DC Insulin Detemir (Levemir Inj) 12 units Q12HR SQ Last administered on 09/20/17at 20:49; Start 09/14/17 at 21:00; Stop 09/21/17 at 08:28; Status DC Lisinopril (Prinivil) 40 mg DAILY PO Last administered on 09/19/17at 09:39; Start 09/16/17 at 09:00; Stop 09/20/17 at 17:11; Status DC Sodium Polystyrene Sulfonate (Kayexalate Liq) 15 gm ONCE ONCE PO Last administered on 09/16/17at 11:01; Start 09/16/17 at 10:45; Stop 09/16/17 at 10:46 ; Status DC Acetaminophen (Tylenol) 500 mg Q6H PRN PEG Fever > 100.0F Last administered on 09/16/17at 16:36; Start 09/16/17 at 16:15; Stop 10/26/17 at 06:36; Status DC Dextrose 1,000 ml @ 75 mls/hr [id number] IV Last administered on 09/20/17at 11:09 ; Start 09/18/17 at 15:30; Stop 09/20/17 at 17:11; Status DC Lisinopril (Prinivil) 20 mg DAILY PO ; Start 09/21/17 at 09:00; Stop 09/21/17 at 23:55; Status DC Metoclopramide HCl (Reglan Inj) 10 mg ONCE ONCE IV PUSH Last administered on at 03:37; Start 09/21/17 at 03:15; Stop 09/21/17 at 03:16; Status DC Insulin Detemir (Levemir Inj) 12 units HS SQ Last administered on 09/26/17at 21: 00; Start 09/21/17 at 21:00; Stop 09/27/17 at 17:31; Status DC Calcium Gluconate 1 gm/Dextrose 110 ml @ 110 mls/hr ONCE ONCE IV Last administered on 09/21/17at 11:43; Start 09/21/17 at 11:15; Stop 09/21/17 at 12:14 ; Status DC Sodium Polystyrene Sulfonate (Kayexalate Liq) 15 gm QID PEG Last administered on 09/22/17at 09:30; Start 09/21/17 at 13:00; Stop 09/22/17 at 09:02; Status DC Insulin Human Regular (NovoLIN R INJ) 10 units ONCE ONCE IV PUSH Last administered on 09/21/17at 11:42; Start 09/21/17 at 11:30; Stop 09/21/17 at 11:31 ; Status DC Dextrose (D50w (Vial) Inj) 50 ml ONCE ONCE IV PUSH Last administered on at 11:42; Start 09/21/17 at 11:30; Stop 09/21/17 at 11:31; Status DC Albuterol Sulfate (Albuterol Concentrated Neb) 10 mg ONCE ONCE INH Last administered on 09/21/17at 11:30; Start 09/21/17 at 11:30; Stop 09/21/17 at 11:31 ; Status DC Sodium Chloride 500 ml @ 100 mls/hr Q5H IV Last administered on 09/21/17at 13: 38; Start 09/21/17 at 13:00; Stop 09/21/17 at 17:59; Status DC Sodium Chloride 1,000 ml @ 42 mls/hr [id number] IV Last administered on at 08:34; Start 09/21/17 at 21:00; Stop 09/24/17 at 08:24; Status DC Hydralazine HCl (Apresoline) 10 mg Q8HR PEG Last administered on 3/30/18at 05: 10; Start 09/24/17 at 14:00 Hydralazine HCl (Apresoline) 10 mg ONCE ONCE PEG Last administered on at 11:49; Start 09/24/17 at 09:00; Stop 09/24/17 at 09:01; Status DC Cefepime HCl 2000 mg/Sodium Chloride 100 ml @ 200 mls/hr Q8H IV Last administered on 09/29/17at 05:35; Start 09/25/17 at 12:00; Stop 09/29/17 at 08:46 ; Status DC Sodium Polystyrene Sulfonate (Kayexalate Liq) 15 gm ONCE ONCE RECTAL Last administered on 09/26/17at 10:51; Start 09/26/17 at 09:15; Stop 09/26/17 at 09:16 ; Status DC Sodium Polystyrene Sulfonate (Kayexalate Liq) 15 gm ONCE ONCE PEG Last administered on 09/27/17at 18:11; Start 09/27/17 at 17:15; Stop 09/27/17 at 17:16 ; Status DC Insulin Detemir (Levemir Inj) 10 units BID SQ Last administered on 09/29/17at 09 :37; Start 09/27/17 at 21:00; Stop 09/29/17 at 15:14; Status DC Doxazosin Mesylate (Cardura) 1 mg DAILY PO Last administered on 10/02/17at 07:59 ; Start 09/28/17 at 10:00; Stop 10/03/17 at 11:55; Status DC Ceftolozane/ Tazobactam 1500 mg/Sodium Chloride 100 ml @ 100 mls/hr Q8H IV Last administered on 09/30/17at 01:51; Start 09/29/17 at 10:00; Stop 09/30/17 at 10:38; Status DC Lactobacillus Acidophilus (Lactinex) 1 tab Q12HR PO Last administered on at 09:08; Start 09/29/17 at 21:00; Stop 10/03/17 at 11:55; Status DC Insulin Human NPH (NovoLIN N INJ) 7 units TID SQ Last administered on at 18:16; Start 09/29/17 at 18:00; Stop 10/01/17 at 19:07; Status DC Acetylcysteine (Mucomyst 10% Neb) 2 ml Q6HR NEB NEB ; Start 09/29/17 at 16:00; Stop 09/29/17 at 16:21; Status DC Acetylcysteine (Mucomyst 10% Neb) 2 ml Q6HR NEB NEB Last administered on at 08:30; Start 09/29/17 at 14:30; Stop 10/03/17 at 14:29; Status DC Metoclopramide HCl (Reglan Inj) 10 mg ONCE ONCE IV PUSH Last administered on at 22:11; Start 09/29/17 at 21:30; Stop 09/29/17 at 21:31; Status DC Trimethoprim/ Sulfamethoxazole (Bactrim 800-160 Mg/20 ml Liq) 20 ml BID PEG Last administered on 10/03/17at 09:08; Start 09/29/17 at 22:02; Stop 10/03/17 at 18 :48; Status DC Colistin Sulfate (Coly-Mycin M Neb) 75 mg Q8HR NEB NEB Last administered on at 07:29; Start 09/30/17 at 16:00; Stop 10/21/17 at 15:59; Status DC Insulin Human NPH (NovoLIN N INJ) 10 units TID SQ Last administered on at 18:43; Start 10/02/17 at 09:00; Stop 10/07/17 at 12:30; Status DC Sodium Polystyrene Sulfonate (Kayexalate Liq) 15 gm BID PO Last administered on 10/03/17at 10:09; Start 10/03/17 at 09:00; Stop 10/03/17 at 11:55; Status DC Sodium Chloride 1,000 ml @ 100 mls/hr Q10H IV Last administered on 10/03/17at 20 :26; Start 10/03/17 at 08:30; Stop 10/03/17 at 22:36; Status DC Levofloxacin/ Dextrose 100 ml @ 100 mls/hr Q24H IV Last administered on at 11:46; Start 10/03/17 at 10:00; Stop 10/03/17 at 20:03; Status DC Amlodipine Besylate (Norvasc) 10 mg DAILY PEG Last administered on 11/28/17 08 :38; Start 10/04/17 at 09:00 Calcium/Vitamin D (Oscal-D 250-125) 250 mg TID PEG Last administered on 18:06; Start 10/03/17 at 13:00 Cholecalciferol (Vitamin D3) 5,000 units DAILY PEG Last administered on 08:38; Start 10/04/17 at 09:00 Clonidine (Catapres) 0.1 mg Q6H PRN PEG SBP >160 Last administered on 00:23; Start 10/03/17 at 12:30 Doxazosin Mesylate (Cardura) 1 mg DAILY PEG Last administered on 11/18/17 09: 04; Start 10/04/17 at 09:00; Stop 11/22/17 at 17:42; Status DC Lactobacillus Acidophilus (Lactinex) 1 tab Q12HR PEG Last administered on 08:38; Start 10/03/17 at 21:00 Metoprolol Tartrate (Lopressor) 12.5 mg Q12HR PEG Last administered on 19:28; Start 10/03/17 at 21:00; Stop 10/26/17 at 08:47; Status DC Sodium Polystyrene Sulfonate (Kayexalate Liq) 15 gm BID PEG Last administered on 10/03/17 21:00; Start 10/03/17 at 21:00; Stop 10/05/17 at 14:49; Status DC Polyethylene Glycol (Miralax) 17 gm DAILY PRN PEG Constipation; Start 10/03/17 at 12:00 Protein (Beneprotein Powder) 1 pack TID PRN G-TUBE Constipation; Start 10/03/17 at 12:00 Albuterol Sulfate (Albuterol Neb) 2.5 mg Q2HR NEB PRN NEB WHEEZING Last administered on 10/19/17at 22:09; Start 10/03/17 at 21:45 Dextrose 1,000 ml @ 30 mls/hr Q24H IV ; Start 10/03/17 at 22:45; Status Cancel Dextrose (D50w (Vial) Inj) 25 ml ONCE ONCE IV PUSH Last administered on at 22:42; Start 10/03/17 at 22:45; Stop 10/03/17 at 22:46; Status DC Furosemide (Lasix Inj) 40 mg ONCE ONCE IV PUSH Last administered on 10/03/17at 22:46; Start 10/03/17 at 22:45; Stop 10/03/17 at 22:46; Status DC Dextrose 500 ml @ 10 mls/hr Q24H IV Last administered on 10/04/17at 15:49; Start 10/03/17 at 23:00; Stop 10/05/17 at 14:49; Status DC Fentanyl Citrate (fentaNYL INJ) 100 mcg STK-MED ONCE .ROUTE ; Start 10/03/17 at 22:47; Stop 10/03/17 at 22:48; Status DC Fentanyl Citrate (fentaNYL INJ) 100 mcg NOW ONCE IV PUSH ; Start 10/03/17 at 23: 00; Stop 10/03/17 at 23:01; Status DC Fentanyl Citrate (fentaNYL INJ) 50 mcg ONCE ONCE IV PUSH Last administered on 10/03/17at 23:00; Start 10/03/17 at 23:00; Stop 10/03/17 at 23:10; Status DC Fentanyl Citrate (fentaNYL INJ) 50 mcg Q1H PRN IV PUSH SEDATION; Start 10/03/17 at 23:00; Stop 10/29/17 at 10:46; Status DC Chlorhexidine Gluconate (Peridex 0.12% Liq) 15 ml BID@08,20 MT Last administered on 10/31/17at 21:41; Start 10/04/17 at 08:00; Stop 11/01/17 at 11:43; Status DC Furosemide (Lasix Inj) 40 mg ONCE ONCE IV PUSH Last administered on 10/04/17at 05:52; Start 10/04/17 at 05:00; Stop 10/04/17 at 05:01; Status DC Furosemide (Lasix Inj) 40 mg Q6HR IV PUSH Last administered on 10/06/17at 05:28; Start 10/04/17 at 12:00; Stop 10/06/17 at 11:00; Status DC Insulin Human NPH (NovoLIN N INJ) 5 units BID@08,17 SQ Last administered on 10/10at 08:05; Start 10/07/17 at 17:00; Stop 10/10/17 at 11:33; Status DC Insulin Detemir (Levemir Inj) 7 units Q12H SQ Last administered on 10/25/17at 23 :55; Start 10/08/17 at 12:00; Stop 10/26/17 at 06:36; Status DC Dextrose (D50w (Vial) Inj) 50 ml UNSCH PRN IV PUSH HYPOGLYCEMIA-SEE COMMENTS Last administered on 10/28/17at 17:42; Start 10/08/17 at 09:45; Stop 11/04/17 at 12 :34; Status DC Glucagon (Glucagon Inj) 1 mg UNSCH PRN OTHER HYPOGLYCEMIA-SEE COMMENTS Last administered on 10/14/17at 00:45; Start 10/08/17 at 09:45; Stop 11/04/17 at 12:34; Status DC Insulin Human Regular (NovoLIN R SUPPLEMENTAL SCALE) 1 Q6HR SQ Last administered on 11/04/17at 06:00; Start 10/08/17 at 12:00; Stop 11/04/17 at 12:27; Status DC Water (Free Water) 250 ml Q8HR G-TUBE Last administered on 10/20/17at 05:20; Start 10/18/17 at 14:00; Stop 10/20/17 at 10:15; Status DC Water (Free Water) VOLUME OF WATER: ( 200 ) ML Q6HR G-TUBE Last administered on 10/27/17at 05:49; Start 10/20/17 at 12:00; Stop 10/27/17 at 10:02; Status DC Albuterol/ Ipratropium (Duoneb Neb) 1 ampule Q6HR NEB NEB Last administered on 10/29/17at 08:34; Start 10/25/17 at 10:00; Stop 10/29/17 at 09:59; Status DC Insulin Detemir (Levemir Inj) 8 units Q12H SQ Last administered on 11/27/17at 23 :23; Start 10/26/17 at 12:00 Acetaminophen (Tylenol 650 Mg/ 20 ml Liq) 650 mg Q6H PRN PEG fever; Start 10/26 at 06:45 Oxycodone HCl (Roxicodone Intensol Liq) 5 mg Q6H PRN PO pain 6-10; Start at 11:00 Iohexol (Omnipaque 350 Inj) 75 ml STK-MED ONCE IVCONTRAST Last administered on 11/01/17at 16:59; Start 11/01/17 at 16:59; Stop 11/01/17 at 17:00; Status DC Dextrose (D50w (Vial) Inj) 50 ml UNSCH PRN IV PUSH HYPOGLYCEMIA-SEE COMMENTS; Start 11/04/17 at 12:30 Glucagon (Glucagon Inj) 1 mg UNSCH PRN OTHER HYPOGLYCEMIA-SEE COMMENTS; Start 11/04/17 at 12:30 Insulin Human Regular (NovoLIN R SUPPLEMENTAL SCALE) 1 Q6H SQ Last administered on 11/28/17at 05:11; Start 11/04/17 at 12:30 Dextrose (D50w (Vial) Inj) 25 ml ONCE ONCE IV PUSH Last administered on at 12:54; Start 11/04/17 at 12:30; Stop 11/04/17 at 12:35; Status DC Metoclopramide HCl (Reglan Inj) 10 mg Q8HR IV PUSH Last administered on at 05:41; Start 11/05/17 at 22:00; Stop 11/07/17 at 13:32; Status DC Amoxicillin/ Clavulanate Potassium (Augmentin 600 Mg/5 ml Liq) 600 mg Q12H PO Last administered on 11/13/17at 23:56; Start 11/07/17 at 12:00; Stop 11/14/17 at 11:59; Status DC Metoclopramide HCl (Reglan Liq) 10 mg Q8HR PO Last administered on 11/18/17at 14:08; Start 11/07/17 at 14:30; Status Future Hold Albuterol/ Ipratropium (Duoneb Neb) 1 ampule Q6HR NEB NEB Last administered on 11/12/17at 09:08; Start 11/08/17 at 10:30; Stop 11/12/17 at 10:29; Status DC Cholestyramine Resin (Questran Light Pkt) 4 gm BID PRN PEG DIARRHEA Last administered on 11/25/17at 09:59; Start 11/12/17 at 13:30 Furosemide (Lasix Inj) 20 mg BID@,18 IV PUSH Last administered on 11/14/17at 08:32; Start 11/13/17 at 17:00; Stop 11/14/17 at 14:49; Status DC Furosemide (Lasix Inj) 20 mg DAILY IV PUSH Last administered on 11/15/17at 09:00 ; Start 11/15/17 at 09:00; Stop 11/16/17 at 08:59; Status DC Sodium Chloride (NS Flush) 2 ml BID IV FLUSH ; Start 11/16/17 at 10:45; Status Cancel Sodium Chloride (NS Flush) 2 ml BID IV FLUSH Last administered on 11/21/17at 09: 00; Start 11/16/17 at 21:00; Stop 11/21/17 at 20:44; Status DC Albuterol Sulfate (Proventil) 2 mg ONCE ONCE PO Last administered on 17:16; Start 11/18/17 at 15:30; Stop 11/18/17 at 15:31; Status DC Sodium Chloride 250 ml @ 250 mls/hr BOLUS ONCE IV Last administered on at 15:26; Start 11/18/17 at 14:30; Stop 11/18/17 at 15:29; Status DC Insulin Human Regular (NovoLIN R INJ) 10 units ONCE ONCE SQ Last administered on 11/18/17 18:23; Start 11/18/17 at 18:00; Stop 11/18/17 at 18:18; Status DC Dextrose (D50w (Syr) Inj) 12.5 ml ONCE ONCE IV PUSH Last administered on at 18:22; Start 11/18/17 at 18:00; Stop 11/18/17 at 18:18; Status DC Furosemide (Lasix) 20 mg DAILY PO Last administered on 11/28/17at 08:38; Start 11/20/17 at 09:00 Lisinopril (Prinivil) 5 mg ONCE ONCE PEG Last administered on 11/22/17at 17:56 ; Start 11/22/17 at 17:45; Stop 11/22/17 at 17:49; Status DC Lisinopril (Prinivil) 5 mg DAILY PEG Last administered on 11/28/17at 08:38; Start 11/23/17 at 09:00 Diphenoxylate HCl/ Atropine (Lomotil 2.5-0.025 Mg Liq) 5 ml Q6H PRN PO LOOSE STOOLS Last administered on 11/25/17at 16:32; Start 11/25/17 at 13:15 A/P Problem List: (1) Acute ischemic left middle cerebral artery (MCA) stroke ICD Code: I63.512 - Cerebral infarction due to unspecified occlusion or stenosis of left middle cerebral artery Status: Acute (2) Acute respiratory failure ICD Code: J96.00 - Acute respiratory failure, unspecified whether with hypoxia or hypercapnia (3) Right hemiplegia ICD Code: G81.91 - Hemiplegia, unspecified affecting right dominant side Status: Acute (4) Sacral decubitus ulcer ICD Code: L89.159 - Pressure ulcer of sacral region, unspecified stage Status: Chronic (5) HCAP (healthcare-associated pneumonia) ICD Code: J18.9 - Pneumonia, unspecified organism Status: Resolved (6) 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 She underwent ORIF on 04/21/17 and on 04/24 a stroke alert was called as she was found to have right hemiparesis with left gaze. She has a poor prognosis based on her lack of overall recovery over the last 6+ months. Patient has no acute issues, no change in care plan. Shortness of breath/desaturation secondary to pulmonary edema-chest x-ray done , personally reviewed, has evidence of pulmonary edema, continue Lasix, monitor BMP every few weeks. Urinary retention No leukocytosis U/A with large leuk esterase but many squamous cells Culture grew Aerococcus, finished Augmentin November 07 - November 14. Leavitt replaced Elevated D-dimer Ordered 10/31 for increasing FiO2 demand Since D-dimer elevated, CTA chest obtained to r/o PE which was negative Likely elevated in light of chronic illness RUE U/S negative for DVT - elevate R arm Left MCA stroke 5.5 mm of [id number] subfalcine herniation, diagnosed 04/24. Was not a candidate for thrombolysis at that time. Increasing edema seen on repeat CT 04/28 with a reduction in midline shift on another repeat on 04/30 Neurologic condition remained poor and she underwent trach 05/15/17 and PEG Persistent right-sided hemiparesis. Previously seen by neurology, signed off Previously seen by neurosurgery, signed off Continue daily ASA Hypertension / CHF Amlodipine 10 mg po daily, Doxazosin 1 mg peg daily, hydralazine 10 mg per per peg q8 hours. Clonidine 0.1 mg q6h prn Echo 10/06/17 LVSF EF = 25-30%. Chronic Tracheostomy /respiratory failure 10/22/2017 Pulmonary toilet, trach care Duo nebs as needed Pulm following, appreciate assistance Large left pneumothorax Resolved Chest tube placed 05/07, discontinued 05/12/17 Hepatitis C LFTs normalized Negative genotype/viral load Diabetes mellitus SSI Novolin R High-dose scale Levemir insulin 8u Q12 FEN PEG tube feeding with Glucerna 1.5 goal 45 cc/hr, per nutrition recommendations Loose Stools patient has been checked for Cdiff on multiple occasions, most recently 11/04 Cdiff negative already on lactinex bid Continue Questran, start Lomotil. Anal Fissure continue wound care DVT prophylaxis Heparin Discharge Planning Aggressive therapy, full code per palliative. Needs placement Problem Qualifiers (1) Acute respiratory failure: Qualified Codes: J96.00 - Acute respiratory failure, unspecified whether with hypoxia or hypercapnia (2) Sacral decubitus ulcer: Qualified Codes: L89.152 - Pressure ulcer of sacral region, stage 2 (3) Chronic respiratory failure: Qualified Codes: J96.11 - Chronic respiratory failure with hypoxia Ricardo Shafer DO Nov 28, 2017 10:37
[2017-11-28] MEDS: INSULIN DETEMIR 100 UNITS/ML VIAL SQ SCH (12:18)
--- NOTE | 2017-11-28 17:31 | HHI.PR ---
Subjective Remarks No events overnight. Patient is on TP's with 40% FIO2. . Tolerating tube feeds. Awake, looks around Tolerates TF No fever Awake, looks around. No new complaint Objective Vital Signs Vital Signs Date Time Temp Pulse Resp B/P (MAP) Pulse Ox O2 Delivery O2 Flow Rate FiO2 11/28/17 16:00 98.2 66 16 147/72 (97) 97 11/28/17 12:00 98.3 49 18 130/54 (79) 99 11/28/17 08:12 96 T-piece 28 11/28/17 08:00 97.7 64 16 126/65 (85) 94 11/28/17 07:00 T-Piece 11/28/17 04:09 50 18 119/59 (79) 96 11/27/17 23:27 68 18 141/69 (93) 93 11/27/17 23:23 99 T-piece 28 11/27/17 21:00 152/87 (108) 97 11/27/17 20:46 98.0 65 18 121/50 (73) 11/27/17 18:45 84 147/49 (81) 97 I/O 11/27/17 11/27/17 11/27/17 11/28/17 11/28/17 11/28/17 07:00 15:00 23:00 07:00 15:00 23:00 Intake Total 805 ml 660 ml 975 ml Output Total 700 ml 700 ml 1000 ml Balance 105 ml -40 ml -25 ml Tube Feeding 530 ml 540 ml 495 ml Tube Irrigant 120 ml Other 275 ml 480 ml Output Urine Total 700 ml 700 ml 1000 ml # Bowel Movements 3 Objective Remarks GENERAL: Elderly female,NAD SKIN: Warm and dry. HEAD: Normocephalic. EYES: No scleral icterus. No injection or drainage. NECK: Supple, trachea midline. No JVD or lymphadenopathy. + trach CARDIOVASCULAR: Regular rate and rhythm without murmurs, gallops, or rubs. RESPIRATORY: Breath sounds equal bilaterally. No accessory muscle use. GASTROINTESTINAL: Abdomen soft, non-tender, nondistended. MUSCULOSKELETAL: No cyanosis, or edema. BACK: Nontender without obvious deformity. No CVA tenderness. A/P Assessment and Plan Chronic resp failure, ,S/P Trach CVA Pneumonia Calcified Granuloma LLL Pseudomonas Tracheobronchitis, PLAN: Continue with TP's, keep sats >92% Bronchodilators, Pulm toilet, trach care CT chest 11/01: No PE,adenopathy in the right paratracheal, subcarinal and hilar regions with numerous prominent lymph nodes seen. Continue with abx ( Augmentin)monitor for signs of infections ( fever, WBC) follow up on urine cx Continue with tube feeds- Glucerna 1.5 @ 45ml/hr GI/DVT prophylaxis Continue treatment plan. LA[facility] RN at [facility] from pulm standpoint Available prn over weekend Chris Rizo MD Nov 28, 2017 17:31
[2017-11-29] VITALS (8 sets, daily range): BP systolic 106–150; BP diastolic 54–77; PULSE 57–89; RESP 12–20; TEMP 97.4–98.9; O2SAT 90–98
[2017-11-29] MEDS: INSULIN DETEMIR 100 UNITS/ML VIAL SQ SCH ×2 (00:20→12:23)
[2017-11-29] MEDS: INSULIN NovoLIN REGULAR SUPPLEMENTAL SCALE SQ SCH ×3 (00:32→17:23)
[2017-11-29] MEDS: HEPARIN SODIUM - SQ 10,000 UNITS/ML VIAL SQ SCH ×3 (05:37→21:20)
[2017-11-29] MEDS: hydrALAZINE HCL 10 MG TAB PEG SCH ×3 (05:37→21:19)
[2017-11-29] MEDS: ARTIFICIAL TEARS OPTH SOLN 15 ML BTL EACH EYE SCH ×3 (05:39→21:21)
[2017-11-29] MEDS: LACTOBACILLUS ACIDOPHILUS TAB PEG SCH ×2 (08:04→21:19)
[2017-11-29] MEDS: CHOLECALCIFEROL (VIT D3) 5000 UNIT CAP PEG SCH (08:04)
[2017-11-29] MEDS: LANSOPRAZOLE SOLUTAB 30 MG TAB NG SCH (08:04)
[2017-11-29] MEDS: ASPIRIN 325 MG TAB DOBHOFF SCH (08:04)
[2017-11-29] MEDS: LISINOPRIL 5 MG TAB PEG SCH (08:05)
[2017-11-29] MEDS: FUROSEMIDE 20 MG TAB PO SCH (08:05)
[2017-11-29] MEDS: CALCIUM/VITAMIN D 250 MG/125 U TAB PEG SCH ×3 (08:05→17:47)
[2017-11-29] MEDS: DIPHENOXYLATE/ATROPINE 2.5 MG/0.025 MG/5 ML CUP PO PRN (08:07)
--- NOTE | 2017-11-29 09:59 | HHI.PR ---
Subjective Remarks No new complaints per nursing Seen sitting in the Maddy chair Seen and examined Chart review Discussed with RN 11-29 patient has No new issues per nursing attempted to pull trach multiple times yesterday Discussed with RN Seen and examined Chart review Objective Vitals Vital Signs Date Time Temp Pulse Resp B/P (MAP) Pulse Ox O2 Delivery O2 Flow Rate FiO2 11/29/17 08:00 98.9 75 20 147/70 (95) 98 11/29/17 07:00 98 T-Piece 6.00 28 11/29/17 04:00 98.6 89 18 129/75 (93) 98 11/29/17 00:00 98.8 11/29/17 00:00 81 16 137/68 (91) 94 11/28/17 20:25 97 T-piece 28 11/28/17 20:00 96 T-Piece 6.00 28 11/28/17 20:00 98.5 81 18 150/75 (100) 90 11/28/17 20:00 98.5 81 16 150/75 (100) 11/28/17 16:00 98.2 66 16 147/72 (97) 97 11/28/17 12:00 98.3 49 18 130/54 (79) 99 I/O 11/28/17 11/28/17 11/28/17 11/29/17 11/29/17 11/29/17 07:00 15:00 23:00 07:00 15:00 23:00 Intake Total 975 ml 945 ml 1085 ml Output Total 1000 ml 700 ml 1650 ml Balance -25 ml 245 ml -565 ml Tube Feeding 495 ml 465 ml 565 ml Other 480 ml 480 ml 520 ml Output Urine Total 1000 ml 700 ml 1650 ml # Voids 2 # Bowel Movements 1 3 Imaging Last Impressions Chest X-Ray 11/13/17 0000 Signed Impressions: Service Date/Time: October 15:36 - CONCLUSION: 1. Cardiomegaly with worsening pulmonary edema pattern. 2. Probable trace left pleural effusion. Alejo De La Vega MD Upper Extremity Ultrasound 11/04/17 0000 Signed Impressions: Service Date/Time: Saturday, November 04, 2017 09:57 - CONCLUSION: No thrombus observed. Subcutaneous edema noted. Deangelo Wren Jr., MD Abdomen X-Ray 11/04/17 0000 Signed Impressions: Service Date/Time: Saturday, November 04, 2017 11:58 - CONCLUSION: Gaseous distention of bowel loops could be ileus but unchanged. Benja Ramsey MD CT Angiography 11/01/17 0000 Signed Impressions: Service Date/Time: Wednesday, November 01, 2017 16:47 - CONCLUSION: No evidence for pulmonary embolism. Please see above. Choco Mustafa MD Thoracentesis 08/05/17 1535 Signed Impressions: Service Date/Time: Saturday, August 05, 2017 16:08 - CONCLUSION: Uncomplicated CT-guided thoracentesis. Sage Adler MD Chest Ultrasound 08/02/17 0000 Signed Impressions: Service Date/Time: Tuesday, August 01, 2017 22:06 - CONCLUSION: 1. Moderate right pleural effusion, as above. Alejo De La Vega MD Hip and Pelvis X-Ray 07/09/17 0000 Signed Impressions: Service Date/Time: Sunday, July 09, 2017 14:04 - CONCLUSION: Anatomic alignment. Ricardo Middleton MD FACR Liver Ultrasound 06/19/17 0000 Signed Impressions: Service Date/Time: June 13:20 - CONCLUSION: 1. Mildly increased echotexture of the liver characteristic of hepatic steatosis. 2. Gallbladder sludge. Obdulio Sam MD Head CT 05/15/17 0000 Signed Impressions: Service Date/Time: May 19:59 - CONCLUSION: 1. 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 2. No bleed or new/acute infarct. Obdulio Simms MD Gall Bladder Ultrasound 05/08/17 0000 Signed Impressions: Service Date/Time: May 08:23 - CONCLUSION: Focally unremarkable appearance of the gallbladder Obdulio Chun MD Abdomen/Pelvis CT 05/07/17 0000 Signed Impressions: Service Date/Time: Sunday, May 07, 2017 13:23 - CONCLUSION: 1. Large left pneumothorax. 2. Bilateral lower lobe consolidation and bilateral moderate size pleural effusions. 3. Significant soft tissue thickening of the right lateral chest wall and left gluteus muscle. 4. Mild ascites. The findings were called to Dr. Carney. Deangelo Zamora MD Chest CT 04/30/17 0000 Signed Impressions: Service Date/Time: Sunday, April 30, 2017 09:20 - CONCLUSION: 1. Bilateral pulmonary infiltrates more pronounced within the lower lobes with tiny bilateral pleural effusions. Material seen filling the lower lobe bronchi bilaterally either related to purulent material or perhaps mucus plugging. Deangelo Wren Jr., MD Carotid Artery Ultrasound 04/24/17 0000 Signed Impressions: Service Date/Time: April 09:45 - CONCLUSION: 1. No hemodynamically significant carotid artery stenosis. Arnie Middleton MD Hip X-Ray 04/21/17 0000 Signed Impressions: Service Date/Time: Friday, April 21, 2017 11:36 - CONCLUSION: Fluoroscopic images during placement of intramedullary siomara left femur. Benja Ramsey MD Objective Remarks GENERAL: Awake follows no commands left side is flaccid can move right side review of systems is unobtainable SKIN: Warm and dry. HEAD: Atraumatic. Normocephalic. EYES: Pupils equal and round. No scleral icterus. No injection or drainage. ENT: No nasal bleeding or discharge. Mucous membranes pink and moist. NECK: Trachea midline. No JVD. Supple tracheostomy in place CARDIOVASCULAR: Regular rate and rhythm. S1-S2 no S3 or S4 RESPIRATORY: No accessory muscle use. Clear to auscultation. Breath sounds equal bilaterally. GASTROINTESTINAL: Abdomen soft, non-tender, nondistended. Hepatic and splenic margins not palpable. PEG tube in place MUSCULOSKELETAL: Extremities without clubbing, cyanosis, or edema. No obvious deformities. NEUROLOGICAL: Awake and alert. No obvious cranial nerve deficits. Motor grossly within normal limits. Moves left side does not follow commands. No speech. PSYCHIATRIC: INAppropriate mood and affect; insight and judgment ABnormal. Procedures PEG tube trach 05/15/17 and PEG 05/16/17 Medications and IVs Current Medications Potassium Chloride 100 ml @ As Directed STK-MED ONCE .ROUTE Last administered on 04/20/17t 13:58; Start 04/20/17 at 13:50; Stop 04/20/17 at 13:51; Status DC Sodium Chloride 1,000 ml @ 250 mls/hr Q4H IV ; Start 04/20/17 at 14:30; Stop at 21:57; Status DC Dextrose/Sodium Chloride 1,000 ml @ 200 mls/hr Q5H IV Last administered on t 14:30; Start 04/20/17 at 14:30; Stop 04/20/17 at 21:57; Status DC Miscellaneous Medication ([facility]) Mix all IV Medications in Nor... UNSCH .XX ; Start 04/20/17 at 14:30; Stop 04/20/17 at 21:57; Status DC Potassium Chloride 100 ml @ 100 mls/hr Q1H PRN IV SEE PROTOCOL; Start at 14:30; Stop 04/20/17 at 21:57; Status DC Potassium Chloride 100 ml @ 50 mls/hr Q2H PRN IV SEE PROTOCOL; Start 04/20/17 at 14:30; Stop 04/20/17 at 21:57; Status DC Potassium Chloride 100 ml @ 100 mls/hr Q1H PRN IV SEE PROTOCOL; Start at 14:30; Stop 04/20/17 at 21:57; Status DC Potassium Chloride 100 ml @ 100 mls/hr Q1H PRN IV SEE PROTOCOL TABLE; Start at 14:30; Stop 04/20/17 at 21:57; Status DC Potassium Chloride 100 ml @ 50 mls/hr Q2H PRN IV SEE PROTOCOL; Start 04/20/17 at 14:30; Stop 04/20/17 at 21:57; Status DC Potassium Chloride 100 ml @ 50 mls/hr Q2H PRN IV SEE PROTOCOL TABLE; Start at 14:30; Stop 04/20/17 at 21:57; Status DC Potassium Chloride 100 ml @ 50 mls/hr Q2H PRN IV SEE PROTOCOL TABLE; Start at 14:30; Stop 04/20/17 at 21:57; Status DC Potassium Chloride 100 ml @ 50 mls/hr Q2H PRN IV SEE PROTOCOL TABLE; Start at 14:30; Stop 04/20/17 at 21:57; Status DC Insulin Human Regular (NovoLIN R INJ) 0.1 units/ Kg actual body weight BOLUS ONCE IV PUSH Last administered on 04/20/17t 15:51; Start 04/20/17 at 14:30; Stop 04/20/17 at 14:31; Status DC Insulin Human Regular 100 units/ Sodium Chloride 100 ml @ 0 mls/hr TITRATE IV ; Start 04/20/17 at 14:30; Stop 04/20/17 at 21:57; Status DC Dextrose (D50w (Vial) Inj) 50 ml Q10M PRN IV PUSH HYPOGLYCEMIA DKA -SEE COMMENTS; Start 04/20/17 at 14:30; Stop 04/20/17 at 21:57; Status DC Sodium Bicarbonate (Sodium Bicarbonate 8.4% Inj) 100 meq STAT PRN IV SEE LABEL COMMENTS; Start 04/20/17 at 14:30; Stop 04/20/17 at 21:57; Status DC Sodium Bicarbonate (Sodium Bicarbonate 8.4% Inj) 50 meq STAT PRN IV SEE LABEL COMMENTS; Start 04/20/17 at 14:30; Stop 04/20/17 at 21:57; Status DC Sodium Phosphate 15 mmol/Sodium Chloride 105 ml @ 25 mls/hr UNSCH PRN IV SEE PROTOCOL TABLE; Start 04/20/17 at 14:30; Stop 04/20/17 at 21:57; Status DC Acetaminophen (Tylenol) 650 mg Q6H PRN PO PAIN SCALE 1 TO 2 Last administered on 05/03/17 00:27; Start 04/20/17 at 14:30; Stop 05/07/17 at 12:46; Status DC Ondansetron HCl (Zofran Inj) 4 mg Q6H PRN IV PUSH NAUSEA AND VOMITING Last administered on 04/30/17 02:28; Start 04/20/17 at 15:00; Stop 08/04/17 at 16:22 ; Status DC Heparin Sodium (Porcine) (Heparin Inj) 5,000 units Q12HR SQ Last administered on 04/20/17 21:00; Start 04/20/17 at 21:00; Stop 04/21/17 at 11:44; Status DC Morphine Sulfate (Morphine Inj) 1 mg Q3H PRN IV Pain 3-5; if unable to take PO Last administered on 04/28/17 18:15; Start 04/20/17 at 17:15; Stop 05/19/17 at 07:55; Status DC Morphine Sulfate (Morphine Inj) 2 mg Q3H PRN IV Pain 6-10;if unable to take PO Last administered on 04/30/17 02:29; Start 04/20/17 at 17:15; Stop 05/19/17 at 07:55; Status DC Naloxone HCl (Narcan Inj) 0.4 mg UNSCH PRN IV SEE LABEL COMMENTS; Start at 17:15 Senna/Docusate Sodium (Nalini-Colace) 1 tab BID PO Last administered on 05/07/17 10:30; Start 04/20/17 at 21:00; Stop 05/07/17 at 12:50; Status DC Magnesium Hydroxide (Milk Of Magnesia Liq) 30 ml Q12H PRN PO MILD - MODERATE CONSTIPATION; Start 04/20/17 at 20:30; Stop 07/26/17 at 16:12; Status DC Sennosides (Senokot) 17.2 mg Q12H PRN PO MODERATE - SEVERE CONSTIPATION Last administered on 04/23/17 22:55; Start 04/20/17 at 20:30; Stop 05/19/17 at 08:05 ; Status DC Bisacodyl (Dulcolax Supp) 10 mg DAILY PRN RECTAL SEVERE CONSITIPATION; Start at 20:30; Stop 07/26/17 at 16:12; Status DC Lactulose (Lactulose Liq) 30 ml DAILY PRN PO SEVERE CONSITIPATION; Start at 20:30; Stop 05/05/17 at 09:24; Status DC Dextrose (D50w (Vial) Inj) 50 ml UNSCH PRN IV HYPOGLYCEMIA-SEE COMMENTS; Start 04/20/17 at 21:45; Stop 04/24/17 at 09:34; Status DC Glucagon (Glucagon Inj) 1 mg UNSCH PRN OTHER HYPOGLYCEMIA-SEE COMMENTS; Start 04/20/17 at 21:45; Stop 04/24/17 at 09:34; Status DC Insulin Aspart (NovoLOG SUPPLEMENTAL SCALE) 1 ACHS SLIDING SCALE SQ Last administered on 04/24/17 06:43; Start 04/21/17 at 07:00; Stop 04/24/17 at 09:35 ; Status DC Calcium Carbonate (Oscal) 500 mg ONCE ONCE PO ; Start 04/21/17 at 07:00; Stop 04/21/17 at 07:11; Status DC Sodium Phosphate 15 mmol/Sodium Chloride 155 ml @ 38.75 mls/ hr ONCE ONCE IV Last administered on 04/21/17 09:32; Start 04/21/17 at 07:00; Stop 04/21/17 at 10:59; Status DC Sodium Chloride 1,000 ml @ 75 mls/hr [id number] IV ; Start 04/21/17 at 09:03; Stop 04/21/17 at 09:03; Status DC Sodium Chloride 1,000 ml @ 100 mls/hr Q10H IV Last administered on 04/23/17 02:15; Start 04/21/17 at 09:03; Stop 04/24/17 at 09:12; Status DC Cefazolin Sodium (Ancef Inj) 1,000 mg STK-MED ONCE .ROUTE Last administered on 04/21/17 10:38; Start 04/21/17 at 10:30; Stop 04/21/17 at 10:31; Status DC Gentamicin Sulfate (Gentamicin Inj) 160 mg STK-MED ONCE .ROUTE Last administered on 04/21/17 11:36; Start 04/21/17 at 10:30; Stop 04/21/17 at 10:31 ; Status DC Vancomycin HCl (Vancomycin Inj) 1,000 mg STK-MED ONCE .ROUTE Last administered on 04/21/17 11:04; Start 04/21/17 at 10:40; Stop 04/21/17 at 10:41; Status DC Bupivacaine HCl/ Epinephrine Bitart (Sensorcaine-Epinephrine 0.25% Inj) 50 ml STK-MED ONCE .ROUTE Last administered on 04/21/17 11:39; Start 04/21/17 at 11: 39; Stop 04/21/17 at 11:40; Status DC IV Flush (NS Flush) 2 ml UNSCH PRN IVF FLUSH AFTER USING IV ACCESS; Start 04/21 at 11:45; Stop 04/24/17 at 09:34; Status DC IV Flush (NS Flush) 2 ml BID IVF Last administered on 04/23/17 07:51; Start at 21:00; Stop 04/24/17 at 09:34; Status DC Enoxaparin Sodium (Lovenox Inj) 30 mg Q24H SQ Last administered on 04/23/17 11 :01; Start 04/22/17 at 11:00; Stop 04/24/17 at 18:07; Status DC Cefazolin Sodium 1000 mg/Sodium Chloride 100 ml @ 200 mls/hr Q8H IV Last administered on 04/22/17 09:07; Start 04/21/17 at 18:00; Stop 04/22/17 at 10:29 ; Status DC Calcium/Vitamin D (Oscal-D 250-125) 250 mg TID PO Last administered on 09:56; Start 04/21/17 at 13:00; Stop 10/03/17 at 11:55; Status DC Diphenhydramine HCl (Benadryl) 25 mg Q6H PRN PO ITCHING; Start 04/21/17 at 11: 45; Stop 04/24/17 at 08:24; Status DC Acetaminophen/ Hydrocodone Bitart ([place] 7.5-325 Mg) 1 tab Q3H PRN PO pain 3< 10 Last administered on 05/03/17 20:17; Start 04/21/17 at 11:45; Stop 05/07/17 at 12:46; Status DC Cholecalciferol (Vitamin D3) 5,000 units DAILY PO Last administered on 09:08; Start 04/22/17 at 09:00; Stop 10/03/17 at 11:55; Status DC Ergocalciferol (Drisdol) 50,000 units ONCE ONCE PO ; Start 04/21/17 at 13:00; Stop 04/21/17 at 13:01; Status DC Midazolam HCl (Versed Inj) 2 mg STK-MED ONCE .ROUTE ; Start 04/21/17 at 12:15; Stop 04/21/17 at 12:16; Status DC Fentanyl Citrate (fentaNYL INJ) 250 mcg STK-MED ONCE .ROUTE ; Start 04/21/17 at 12:16; Stop 04/21/17 at 12:17; Status DC Morphine Sulfate (*morphine INJ PERIprocedure ONLY) 8 mg STK-MED ONCE .ROUTE Last administered on 04/21/17 12:37; Start 04/21/17 at 12:36; Stop 04/21/17 at 12:37; Status DC Miscellaneous Information ALL NURSING DEPARTME... UNSCH PRN .XX SEE LABEL COMMENTS; Start 04/21/17 at 13:00; Stop 04/22/17 at 12:59; Status DC Calcium Carbonate (Oscal) 500 mg ONCE ONCE PO ; Start 04/24/17 at 08:00; Stop 04/24/17 at 08:01; Status DC Sodium Chloride 1,000 ml @ 70 mls/hr [id number] IV ; Start 04/24/17 at 09:15; Stop 04/24/17 at 09:37; Status DC IV Flush (NS Flush) 2 ml BID IV FLUSH Last administered on 11/16/17at 09:00; Start 04/24/17 at 21:00; Stop 11/16/17 at 10:52; Status DC IV Flush (NS Flush) 2 ml UNSCH PRN IV FLUSH FLUSH AFTER USING IV ACCESS Last administered on 09/17/17at 08:48; Start 04/24/17 at 09:30; Stop 11/21/17 at 20:44 ; Status DC Sodium Chloride 1,000 ml @ 70 mls/hr [id number] IV Last administered on 03:38; Start 04/24/17 at 09:25; Stop 04/30/17 at 07:51; Status DC Aspirin (Aspirin Supp) 300 mg DAILY RECTAL Last administered on 04/26/17 08:38 ; Start 04/24/17 at 09:30; Stop 04/26/17 at 15:21; Status DC Insulin Aspart (NovoLOG SUPPLEMENTAL SCALE) 1 ACHS SQ Last administered on 04/24 17:29; Start 04/24/17 at 11:00; Stop 04/24/17 at 18:07; Status DC Dextrose (D50w (Vial) Inj) 50 ml UNSCH PRN IV PUSH HYPOGLYCEMIA-SEE COMMENTS; Start 04/24/17 at 09:30; Stop 04/24/17 at 18:07; Status DC Glucagon (Glucagon Inj) 1 mg UNSCH PRN OTHER HYPOGLYCEMIA-SEE COMMENTS; Start 04/24/17 at 09:30; Stop 04/24/17 at 18:07; Status DC Insulin Aspart (NovoLOG SUPPLEMENTAL SCALE) 1 Q4HR SQ ; Start 04/24/17 at 18:15 ; Stop 04/24/17 at 20:43; Status DC Dextrose (D50w (Vial) Inj) 25 ml UNSCH PRN IV HYPOGLYCEMIA-SEE COMMENTS; Start 04/24/17 at 18:15; Stop 04/26/17 at 20:28; Status DC Glucagon (Glucagon Inj) 1 mg UNSCH PRN IM/SQ HYPOGLYCEMIA-SEE COMMENTS; Start 04/24/17 at 18:15; Stop 05/21/17 at 13:34; Status DC Insulin Aspart (NovoLOG SUPPLEMENTAL SCALE) 1 Q4H SQ Last administered on 03:48; Start 04/24/17 at 22:00; Stop 04/26/17 at 09:43; Status DC Insulin Detemir (Levemir Inj) 10 units HS SQ Last administered on 04/25/17 23: 46; Start 04/25/17 at 21:00; Stop 04/26/17 at 09:43; Status DC Insulin Detemir (Levemir Inj) 20 units BID SQ Last administered on 04/26/17 11 :05; Start 04/26/17 at 10:00; Stop 04/27/17 at 08:34; Status DC Mannitol (Mannitol Inj) 12.5 gm Q6HR IV Last administered on 04/26/17 11:06; Start 04/26/17 at 12:00; Stop 04/28/17 at 18:33; Status DC Dextrose (D50w (Vial) Inj) 50 ml UNSCH PRN IV HYPOGLYCEMIA-SEE COMMENTS; Start 04/26/17 at 09:45; Status UNV Glucagon (Glucagon Inj) 1 mg UNSCH PRN OTHER HYPOGLYCEMIA-SEE COMMENTS; Start 04/26/17 at 09:45; Status UNV Insulin Aspart (NovoLOG SUPPLEMENTAL SCALE) 1 ACHS SLIDING SCALE SQ Last administered on 04/26/17 11:48; Start 04/26/17 at 11:00; Stop 04/26/17 at 15:24 ; Status DC Insulin Aspart (NovoLOG SUPPLEMENTAL SCALE) 1 Q4HR SQ Last administered on 04/28 09:38; Start 04/26/17 at 16:00; Stop 04/28/17 at 15:40; Status DC Aspirin (Aspirin) 325 mg DAILY DOBHOFF Last administered on 11/29/17at 08:04; Start 04/27/17 at 09:00 Dextrose (D50w (Syr) Inj) 25 ml UNSCH PRN IV HYPOGLYCEMIA- SEE COMMENTS Last administered on 05/18/17 00:22; Start 04/26/17 at 20:30; Stop 05/19/17 at 08:01 ; Status DC Metoprolol Tartrate (Lopressor Inj) 5 mg Q5M PRN IV PUSH HR>150 Last administered on 06/02/17 03:21; Start 04/27/17 at 04:00; Stop 07/12/17 at 01: 05; Status DC Insulin Detemir (Levemir Inj) 15 units BID SQ Last administered on 04/28/17 09 :39; Start 04/27/17 at 09:00; Stop 04/28/17 at 15:36; Status DC Potassium Chloride 100 ml @ 50 mls/hr Q2H PRN IV For Potassium 2.8 - 3.2 mEq/L ; Start 04/27/17 at 08:45; Stop 07/12/17 at 00:31; Status DC Potassium Chloride 100 ml @ 50 mls/hr Q2H PRN IV For Potassium 2.8 - 3.2 mEq/ L Last administered on 05/18/17 10:41; Start 04/27/17 at 08:45; Stop 07/12/17 at 00:31; Status DC Potassium Bicarb/ Potassium Chloride (K-Lyte Cl Eff) 50 meq UNSCH PRN PO For Potassium 3.3 - 3.5 mEq/L; Start 04/27/17 at 08:45; Stop 07/12/17 at 00:31; Status DC Potassium Chloride 100 ml @ 25 mls/hr UNSCH PRN IV For Potassium 3.3 - 3.5 mEq /L Last administered on 05/04/17 19:07; Start 04/27/17 at 08:45; Stop 07/12/17 at 00:31; Status DC Potassium Chloride 100 ml @ 50 mls/hr Q2H PRN IV For Potassium 3.3 - 3.5 mEq/ L Last administered on 05/18/17 08:29; Start 04/27/17 at 08:45; Stop 07/12/17 at 00:31; Status DC Magnesium Sulfate 4 gm/Sodium Chloride 100 ml @ 50 mls/hr UNSCH PRN IV For Magnesium 0.9 - 1.1 mg/dL; Start 04/27/17 at 08:45; Stop 07/12/17 at 00:31; Status DC Magnesium Oxide (Mag-Ox) 800 mg UNSCH PRN PO For Magnesium 1.2 - 1.6 mg/dL; Start 04/27/17 at 08:45; Stop 07/12/17 at 00:31; Status DC Magnesium Sulfate 2 gm/Sodium Chloride 100 ml @ 50 mls/hr UNSCH PRN IV For Magnesium 1.2 - 1.6 mg/dL; Start 04/27/17 at 08:45; Stop 07/12/17 at 00:31; Status DC Potassium Phosphate (K-Phos) 2,000 mg Q4H PRN PO For Phosphorus < 2.5 mg/dL Last administered on 04/28/17 15:38; Start 04/27/17 at 08:45; Stop 07/12/17 at 00:31; Status DC Sodium Phosphate 30 mmol/Sodium Chloride 250 ml @ 42 mls/hr UNSCH PRN IV For Phosphorus < 2.5 mg/dL Last administered on 04/27/17 23:59; Start 04/27/17 at 08:45; Stop 07/12/17 at 00:31; Status DC Potassium Phosphate (K-Phos) 2,000 mg UNSCH PRN PO/TUBE SEE LABEL COMMENTS Last administered on 05/08/17 06:32; Start 04/27/17 at 08:45; Stop 07/12/17 at 00:31; Status DC Potassium Phosphate 30 mmol/ Sodium Chloride 260 ml @ 42 mls/hr UNSCH PRN IV SEE LABEL COMMENTS Last administered on 05/04/17 20:54; Start 04/27/17 at 08:45 ; Stop 07/12/17 at 00:31; Status DC Insulin Detemir (Levemir Inj) 10 units BID SQ Last administered on 04/30/17 21 :00; Start 04/28/17 at 21:00; Stop 05/01/17 at 07:49; Status DC Pantoprazole Sodium (Protonix Inj) 40 mg Q24H IV PUSH Last administered on 17:00; Start 04/28/17 at 17:00; Stop 05/07/17 at 12:52; Status DC Insulin Aspart (NovoLOG SUPPLEMENTAL SCALE) 1 ACHS SLIDING SCALE SQ Last administered on 05/18/17 21:00; Start 04/28/17 at 16:00; Stop 05/19/17 at 07:55 ; Status DC Sodium Chloride 250 ml @ 15 mls/hr ONCE ONCE IV ; Start 04/28/17 at 18:00; Stop 04/28/17 at 18:33; Status DC Acetaminophen (Ofirmev 1000 Mg/ 100 ml Inj) 1,000 mg NOW ONCE IV Last administered on 04/29/17 01:00; Start 04/29/17 at 01:00; Stop 04/29/17 at 01:01 ; Status DC Iohexol (Omnipaque 350 Inj) 75 ml STK-MED ONCE IVCONTRAST Last administered on 04/26/17 04:26; Start 04/26/17 at 04:26; Stop 04/29/17 at 10:24; Status DC Fluconazole/ Sodium Chloride 100 ml @ 100 mls/hr Q24H IV Last administered on 04/30/17 14:59; Start 04/29/17 at 14:00; Stop 04/30/17 at 15:40; Status DC Metronidazole (Flagyl) 500 mg Q8HR DOBHOFF Last administered on 05/13/17 13:37 ; Start 04/29/17 at 14:00; Stop 05/13/17 at 16:14; Status DC Albuterol/ Ipratropium (Duoneb Neb) 1 ampule Q4HR NEB PRN NEB CONGESTION Last administered on 05/04/17 20:38; Start 04/30/17 at 04:45; Stop 05/07/17 at 12:46; Status DC Bumetanide (Bumex Inj) 1 mg ONCE ONCE IV PUSH Last administered on 04/30/17 10:14; Start 04/30/17 at 08:00; Stop 04/30/17 at 08:01; Status DC Potassium Chloride/Sodium Chloride 1,000 ml @ 84 mls/hr [id number] IV Last administered on 05/01/17 07:00; Start 04/30/17 at 08:00; Stop 05/01/17 at 07:32 ; Status DC Albuterol/ Ipratropium (Duoneb Neb) 1 ampule Q6HR NEB NEB Last administered on 05/04/17 07:52; Start 04/30/17 at 10:00; Stop 05/04/17 at 09:59; Status DC Cefepime HCl 2000 mg/Sodium Chloride 100 ml @ 200 mls/hr Q8H IV Last administered on 05/04/17 07:53; Start 04/30/17 at 09:00; Stop 05/04/17 at 08:22; Status DC Micafungin Sodium 100 mg/Sodium Chloride 100 ml @ 100 mls/hr Q24H IV Last administered on 05/07/17 10:29; Start 04/30/17 at 09:00; Stop 05/07/17 at 13:49; Status DC Etomidate (Amidate Inj) 20 mg STK-MED ONCE .ROUTE Last administered on 15:07; Start 04/30/17 at 14:56; Stop 04/30/17 at 14:57; Status DC Midazolam HCl (Versed Inj) 5 mg STK-MED ONCE .ROUTE Last administered on 15:06; Start 04/30/17 at 14:57; Stop 04/30/17 at 14:58; Status DC Rocuronium [place] (Zemuron Inj) 50 mg STK-MED ONCE .ROUTE Last administered on 04/30/17 15:07; Start 04/30/17 at 14:58; Stop 04/30/17 at 14:59; Status DC Etomidate (Amidate Inj) 20 mg NOW ONCE IV PUSH ; Start 04/30/17 at 15:30; Stop 04/30/17 at 15:31; Status DC Midazolam HCl (Versed Inj) 5 mg NOW ONCE IV PUSH ; Start 04/30/17 at 15:30; Stop 04/30/17 at 15:32; Status DC Rocuronium [place] (Zemuron Inj) 50 mg NOW ONCE IV PUSH ; Start 04/30/17 at 15: 45; Stop 04/30/17 at 15:46; Status DC Vancomycin HCl 1000 mg/Sodium Chloride 250 ml @ 250 mls/hr Q12H IV ; Start at 15:45; Status Cancel Pharmacy Profile Note 1,000 ml @ 30 mls/hr UNSCH OTHER ; Start 04/30/17 at 15: 45; Stop 05/04/17 at 08:22; Status DC Vancomycin HCl 1250 mg/Sodium Chloride 262.5 ml @ 250 mls/hr Q12H IV Last administered on 05/03/17 07:24; Start 04/30/17 at 18:00; Stop 05/03/17 at 15:39; Status DC Miscellaneous Information SPECIFIC LAB TO BE DRAWN:VANCOMYCIN TROUGH DATE TO... ONCE ONCE .XX ; Start 05/02/17 at 05:45; Stop 05/02/17 at 05:46; Status DC Sodium Chloride 1,000 ml @ 84 mls/hr [id number] IV Last administered on 05/02/17 09:24; Start 05/01/17 at 07:30; Stop 05/02/17 at 11:49; Status DC Insulin Detemir (Levemir Inj) 20 units Q12H SQ Last administered on 05/02/17 09 :23; Start 05/01/17 at 09:00; Stop 05/02/17 at 12:07; Status DC Enoxaparin Sodium (Lovenox Inj) 40 mg Q24H SQ Last administered on 07/14/17 07:47; Start 05/01/17 at 08:00; Stop 07/14/17 at 12:05; Status DC Lactated Ringer's 1,000 ml @ 75 mls/hr [id number] IV Last administered on 05:57; Start 05/02/17 at 13:00; Stop 05/07/17 at 16:50; Status DC Insulin Detemir (Levemir Inj) 25 units Q12H SQ Last administered on 05/04/17 07 :50; Start 05/02/17 at 21:00; Stop 05/05/17 at 09:20; Status DC Vancomycin HCl 1250 mg/Sodium Chloride 262.5 ml @ 262.5 mls/ hr Q24H IV Last administered on 05/04/17 05:21; Start 05/04/17 at 06:00; Stop 05/04/17 at 08:22; Status DC Miscellaneous Information SPECIFIC LAB TO BE ROLF... ONCE ONCE .XX ; Start at 05:45; Stop 05/06/17 at 05:45; Status DC Levofloxacin/ Dextrose 150 ml @ 100 mls/hr Q24H IV Last administered on 10:00; Start 05/04/17 at 09:00; Stop 05/13/17 at 16:14; Status DC Furosemide (Lasix Inj) 10 mg BID@09,18 IV PUSH Last administered on 05/05/17 09 :05; Start 05/04/17 at 18:00; Stop 05/05/17 at 09:01; Status DC Albuterol/ Ipratropium (Duoneb Neb) 1 ampule Q6HR ALT NEB NEB Last administered on 05/05/17 04:30; Start 05/05/17 at 01:00; Stop 05/05/17 at 04:38; Status DC Albuterol/ Ipratropium (Duoneb Neb) 1 ampule Q6HR NEB NEB Last administered on 05/08/17 09:56; Start 05/05/17 at 10:00; Stop 05/08/17 at 10:15; Status DC Insulin Detemir (Levemir Inj) 10 units Q12H SQ Last administered on 05/07/17 10 :43; Start 05/05/17 at 21:00; Stop 05/07/17 at 13:54; Status DC Lactulose (Lactulose Liq) 30 ml DAILY PO Last administered on 05/07/17 10:29; Start 05/05/17 at 09:30; Stop 05/07/17 at 12:50; Status DC Sodium Chloride 1,000 ml @ 999 mls/hr BOLUS ONCE IV Last administered on 09:08; Start 05/06/17 at 07:45; Stop 05/06/17 at 08:45; Status DC Propofol (Diprivan 200 Mg/20 ml Inj) 200 mg STK-MED ONCE IV ; Start 04/21/17 at 12:12; Stop 05/06/17 at 12:13; Status DC Ephedrine Sulfate (ePHEDrine/NS 25 MG/5 ML SYR) 25 mg STK-MED ONCE IV ; Start at 12:12; Stop 05/06/17 at 12:13; Status DC Neostigmine Methylsulfate (Prostigmin Inj) 3 mg STK-MED ONCE IV ; Start at 12:12; Stop 05/06/17 at 12:13; Status DC Phenylephrine HCl (Neosynephrine/ NS 1000 Mcg/10ml Syr) 1,000 mcg STK-MED ONCE IV ; Start 04/21/17 at 12:12; Stop 05/06/17 at 12:13; Status DC Ondansetron HCl (Zofran Inj) 4 mg STK-MED ONCE IV PUSH ; Start 04/21/17 at 12:12 ; Stop 05/06/17 at 12:13; Status DC Albumin Human (Albumin 5% Inj) 25 gm NOW ONCE IV Last administered on 21:11; Start 05/06/17 at 20:45; Stop 05/06/17 at 20:46; Status DC Albuterol Sulfate (Albuterol Neb) 2.5 mg Q2HR NEB PRN NEB DYSPNEA; Start at 12:30; Stop 05/07/17 at 14:30; Status DC Bumetanide (Bumex Inj) 1 mg ONCE ONCE IV PUSH Last administered on 05/07/17 15 :07; Start 05/07/17 at 15:00; Stop 05/07/17 at 15:01; Status DC Metolazone (Zaroxolyn) 2.5 mg ONCE ONCE PO Last administered on 05/07/17 16:36 ; Start 05/07/17 at 15:30; Stop 05/07/17 at 15:31; Status DC Potassium Chloride (KCl Powder) 20 meq ONCE ONCE PO Last administered on 15:00; Start 05/07/17 at 15:00; Stop 05/07/17 at 15:01; Status DC Docusate Sodium (Colace Liq) 100 mg Q12HR PO Last administered on 07/22/17 21 :52; Start 05/07/17 at 21:00; Stop 07/26/17 at 16:13; Status DC Sennosides (Senna Liq) 8.8 mg BID OG-TUBE Last administered on 05/17/17 09:11 ; Start 05/07/17 at 21:00; Stop 05/19/17 at 08:05; Status DC Lactulose (Lactulose Liq) 30 ml QID PO Last administered on 05/16/17 20:56; Start 05/07/17 at 18:00; Stop 05/19/17 at 08:05; Status DC Polyethylene Glycol (Miralax) 17 gm BID OG-TUBE Last administered on 05/16/17 20:56; Start 05/07/17 at 21:00; Stop 05/19/17 at 08:05; Status DC Mineral Oil (Fleet Mineral Oil Enema) 118 ml ONCE ONCE RECTAL ; Start 05/07/17 at 13:00; Stop 05/07/17 at 14:37; Status DC Mineral Oil (Mineral Oil Liq) 30 ml ONCE ONCE PO Last administered on 16:36; Start 05/07/17 at 16:00; Stop 05/07/17 at 16:02; Status DC Methylnaltrexone Snow Shoe (Relistor Inj) 12 mg ONCE ONCE SQ Last administered on 05/07/17 16:37; Start 05/07/17 at 15:00; Stop 05/07/17 at 15:01; Status DC Albuterol Sulfate (Albuterol Neb) 2.5 mg Q2HR NEB PRN NEB DYSPNEA Last administered on 07/06/17 23:51; Start 05/07/17 at 13:00; Stop 07/16/17 at 16:36 ; Status DC Lansoprazole (Prevacid Odt) 30 mg DAILY NG Last administered on 11/29/17at 08:04 ; Start 05/08/17 at 09:00 Iohexol (Omnipaque 350 Inj) 60 ml STK-MED ONCE IVCONTRAST Last administered on 05/07/17 13:35; Start 05/07/17 at 13:35; Stop 05/07/17 at 13:36; Status DC Insulin Detemir (Levemir Inj) 15 units Q12H SQ Last administered on 05/10/17 20 :49; Start 05/07/17 at 21:00; Stop 05/11/17 at 09:21; Status DC Fentanyl Citrate (fentaNYL INJ) 100 mcg STK-MED ONCE .ROUTE ; Start 05/07/17 at 14:17; Stop 05/07/17 at 14:18; Status DC Midazolam HCl (Versed Inj) 5 mg STK-MED ONCE .ROUTE ; Start 05/07/17 at 14:18; Stop 05/07/17 at 14:19; Status DC Mineral Oil (Fleet Mineral Oil Enema) 118 ml ONCE ONCE RECTAL Last administered on 05/07/17 16:35; Start 05/07/17 at 16:00; Stop 05/07/17 at 16:02; Status DC Fentanyl Citrate (fentaNYL INJ) 50 mcg NOW ONCE IV Last administered on 17:21; Start 05/07/17 at 17:15; Stop 05/07/17 at 17:20; Status DC Midazolam HCl (Versed Inj) 1 mg NOW ONCE IV Last administered on 05/07/17 17: 15; Start 05/07/17 at 17:15; Stop 05/07/17 at 17:20; Status DC Potassium Chloride (KCl Powder) 80 meq ONCE ONCE PO Last administered on 10:29; Start 05/08/17 at 10:00; Stop 05/08/17 at 10:01; Status DC Potassium Chloride 100 ml @ 100 mls/hr Q1H IV Last administered on 05/08/17 15 :24; Start 05/08/17 at 10:00; Stop 05/08/17 at 12:59; Status DC Potassium Phos/ Sodium Phos (K-Phos Neutral) 1,000 mg ONCE ONCE PO Last administered on 05/08/17 10:46; Start 05/08/17 at 10:00; Stop 05/08/17 at 10:01; Status DC Bumetanide (Bumex Inj) 1 mg ONCE ONCE IV PUSH Last administered on 05/08/17 10 :28; Start 05/08/17 at 10:00; Stop 05/08/17 at 10:01; Status DC Albuterol/ Ipratropium (Duoneb Neb) 1 ampule Q6HR NEB NEB Last administered on 05/12/17 15:53; Start 05/08/17 at 16:00; Stop 05/12/17 at 15:59; Status DC Furosemide (Lasix Inj) 20 mg BID@09,18 IV PUSH Last administered on 05/10/17 18 :00; Start 05/10/17 at 10:00; Stop 05/11/17 at 06:15; Status DC Furosemide (Lasix Inj) 40 mg BID@0900,1800 IV PUSH Last administered on 17:53; Start 05/11/17 at 09:00; Stop 05/18/17 at 08:06; Status DC Acetazolamide Sodium (Diamox Inj) 500 mg DAILY IV PUSH Last administered on 08:54; Start 05/11/17 at 09:30; Stop 05/12/17 at 23:00; Status DC Insulin Detemir (Levemir Inj) 5 units Q12H SQ Last administered on 05/17/17 09 :12; Start 05/11/17 at 21:00; Stop 05/18/17 at 08:06; Status DC Protein (Beneprotein Powder) 1 pack TID G-TUBE Last administered on 10/03/17at 09 :00; Start 05/12/17 at 13:00; Stop 10/03/17 at 11:56; Status DC Acetazolamide Sodium (Diamox Inj) 500 mg ONCE ONCE IV PUSH Last administered on 05/13/17 22:40; Start 05/13/17 at 22:00; Stop 05/13/17 at 22:01; Status DC Cisatracurium Besylate (Nimbex Inj) 12 mg ONCE ONCE IV PUSH Last administered on 05/15/17 15:15; Start 05/14/17 at 17:45; Stop 05/14/17 at 17:49; Status DC Fentanyl Citrate (fentaNYL INJ) 100 mcg MEDICAL NURSE IV PUSH Last administered on 15:15; Start 05/14/17 at 17:45; Stop 05/15/17 at 17:44; Status DC Midazolam HCl (Versed Inj) 2 mg MEDICAL NURSE IV PUSH Last administered on 15:15; Start 05/14/17 at 17:45; Stop 05/15/17 at 17:44; Status DC Cisatracurium Besylate (Nimbex Inj) 12 mg MEDICAL NURSE IV PUSH ; Start 05/14/17 at 18:00; Stop 05/15/17 at 17:59; Status DC Cefazolin Sodium 1000 mg/Sodium Chloride 100 ml @ 200 mls/hr MEDICAL NURSE IV Last administered on 05/16/17 12:35; Start 05/15/17 at 17:15; Stop 05/18/17 at 17:14 ; Status DC Propofol (Diprivan 200 Mg/20 ml Inj) 210 mg STK-MED ONCE IV ; Start 05/16/17 at 13:30; Stop 05/16/17 at 18:25; Status DC Sodium Chloride 1,000 ml @ 75 mls/hr [id number] IV Last administered on 12:42; Start 05/17/17 at 11:45; Stop 05/19/17 at 07:55; Status DC Furosemide (Lasix Inj) 40 mg DAILY IV PUSH Last administered on 05/18/17 08:29 ; Start 05/18/17 at 09:00; Stop 05/19/17 at 07:55; Status DC Furosemide (Lasix Liq) 40 mg DAILY NG Last administered on 06/18/17 11:02; Start 05/19/17 at 09:00; Stop 06/19/17 at 06:54; Status DC Dextrose (D50w (Vial) Inj) 25 ml UNSCH PRN IV PUSH HYPOGLYCEMIA-SEE COMMENTS; Start 05/19/17 at 08:00; Stop 05/20/17 at 20:59; Status DC Insulin Human Regular (NovoLIN R SUPPLEMENTAL SCALE) 1 Q4HR SQ Last administered on 05/21/17 12:00; Start 05/19/17 at 08:00; Stop 05/21/17 at 13:15 ; Status DC Insulin Detemir (Levemir Inj) 8 units DAILY SQ Last administered on 05/20/17 09:00; Start 05/19/17 at 09:00; Stop 05/21/17 at 13:15; Status DC Dextrose (D50w (Syr) Inj) 25 ml UNSCH PRN IV PUSH HYPOGLYCEMIA-SEE COMMENTS Last administered on 05/20/17 21:14; Start 05/20/17 at 21:00; Stop 05/21/17 at 13:34; Status DC Insulin Detemir (Levemir Inj) 7 units Q12H SQ Last administered on 05/22/17 09 :00; Start 05/21/17 at 21:00; Stop 05/22/17 at 17:19; Status DC Dextrose (D50w (Vial) Inj) 50 ml UNSCH PRN IV PUSH HYPOGLYCEMIA-SEE COMMENTS; Start 05/21/17 at 13:15; Stop 05/22/17 at 17:06; Status DC Glucagon (Glucagon Inj) 1 mg UNSCH PRN OTHER HYPOGLYCEMIA-SEE COMMENTS; Start 05/21/17 at 13:15; Stop 10/08/17 at 11:08; Status DC Insulin Aspart (NovoLOG SUPPLEMENTAL SCALE) 1 ACHS SLIDING SCALE SQ Last administered on 06/11/17 11:56; Start 05/21/17 at 17:00; Stop 06/12/17 at 07: 10; Status DC Dextrose (D50w (Syr) Inj) 50 ml UNSCH PRN IV PUSH HYPOGLYCEMIA-SEE COMMENTS Last administered on 10/04/17 01:57; Start 05/22/17 at 17:15; Stop 10/08/17 at 11 :08; Status DC Insulin Detemir (Levemir Inj) 5 units Q12H SQ Last administered on 05/27/17 21 :22; Start 05/22/17 at 21:00; Stop 05/28/17 at 09:50; Status DC Enalaprilat (Vasotec Inj) 1.25 mg Q6H PRN IV PUSH SBP> OR = 180, DBP> OR = 100 Last administered on 05/31/17 05:28; Start 05/24/17 at 22:45; Stop 05/31/17 at 07:41; Status DC Water (Free Water) VOLUME: 300 ML Q6HR G-TUBE Last administered on 06/10/17 06:00; Start 05/25/17 at 14:15; Stop 06/10/17 at 11:23; Status DC Acetazolamide Sodium (Diamox Inj) 500 mg ONCE ONCE IV PUSH Last administered on 05/26/17 08:54; Start 05/26/17 at 09:00; Stop 05/26/17 at 09:01; Status DC Ceftriaxone Sodium 1000 mg/ Sodium Chloride 100 ml @ 200 mls/hr Q24H IV Last administered on 05/27/17 08:32; Start 05/26/17 at 09:00; Stop 05/27/17 at 15:41 ; Status DC Cefepime HCl 1000 mg/Sodium Chloride 100 ml @ 200 mls/hr Q12H IV Last administered on 06/03/17 05:32; Start 05/27/17 at 16:00; Stop 06/03/17 at 09:12 ; Status DC Sodium Chloride 250 ml @ 15 mls/hr ONCE ONCE IV Last administered on 09:45; Start 05/28/17 at 09:45; Stop 05/29/17 at 02:24; Status DC Acetaminophen (Tylenol) 650 mg Q4H PRN PO SEE LABEL COMMENTS; Start 05/28/17 at 10:00; Stop 06/10/17 at 11:23; Status DC Diphenhydramine HCl (Benadryl) 25 mg Q4H PRN PO SEE LABEL COMMENTS; Start 05/28 at 10:00; Stop 06/02/17 at 07:40; Status DC Furosemide (Lasix Inj) 20 mg ONCE ONCE IV PUSH ; Start 05/28/17 at 10:00; Stop 05/28/17 at 10:01; Status DC Insulin Detemir (Levemir Inj) 7 units Q12H SQ Last administered on 06/20/17 21:12; Start 05/28/17 at 21:00; Stop 06/21/17 at 07:27; Status DC Artificial Tears (Tears Naturale Opth Soln) 1 drop Q4H PRN EACH EYE DRY EYE; Start 05/29/17 at 21:15; Stop 06/12/17 at 07:10; Status DC Hydralazine HCl (Apresoline Inj) 20 mg Q4H PRN IV PUSH SBP >160 Last administered on 06/21/17 04:06; Start 05/31/17 at 07:45; Stop 06/21/17 at 07: 23; Status DC Lisinopril (Prinivil) 10 mg Q12HR PO Last administered on 06/20/17 21:12; Start 05/31/17 at 09:00; Stop 06/21/17 at 07:23; Status DC Artificial Tears (Tears Naturale Opth Soln) 1 drop Q8HR EACH EYE Last administered on 11/29/17at 05:39; Start 06/12/17 at 07:15 Insulin Aspart (NovoLOG SUPPLEMENTAL SCALE) 1 Q6HR SQ Last administered on 18:00; Start 06/12/17 at 12:00; Stop 07/16/17 at 16:36; Status DC Sodium Chloride (Sodium Chloride) 2 gm ONCE ONCE PEG Last administered on 09:41; Start 06/12/17 at 07:00; Stop 06/12/17 at 07:12; Status DC Albuterol/ Ipratropium (Duoneb Neb) 1 ampule Q6HR NEB NEB Last administered on 06/16/17 03:46; Start 06/12/17 at 10:00; Stop 06/16/17 at 07:10; Status DC Insulin Aspart (NovoLOG INJ) 10 units ONCE ONCE SQ Last administered on 10:00; Start 06/12/17 at 10:00; Stop 06/12/17 at 10:32; Status DC Erythromycin Ethylsuccinate (Ees) 250 mg Q8HR PO ; Start 06/16/17 at 02:00; Stop 06/16/17 at 02:00; Status DC Methylnaltrexone [place]oe (Relistor Inj) 12 mg ONCE ONCE SQ Last administered on 06/16/17 01:40; Start 06/16/17 at 02:00; Stop 06/16/17 at 02:01; Status DC Erythromycin (Erythromycin Ec) 250 mg Q8HR PO Last administered on 06/18/17 12:27; Start 06/16/17 at 02:00; Stop 06/18/17 at 22:53; Status DC Albuterol/ Ipratropium (Duoneb Neb) 1 ampule Q6HR NEB NEB Last administered on 06/20/17 08:04; Start 06/16/17 at 10:00; Stop 06/20/17 at 09:24; Status DC Erythromycin Ethylsuccinate (Ees 400 Mg/5 ml Liq) 250 mg Q8H PO Last administered on 06/19/17 01:19; Start 06/19/17 at 00:00; Stop 06/19/17 at 06 :54; Status DC Polyethylene Glycol (Miralax) 17 gm DAILY PO ; Start 06/19/17 at 09:00; Stop 06/23/17 at 06:47; Status DC Albuterol/ Ipratropium (Duoneb Neb) 1 ampule Q6HR NEB NEB Last administered on 06/24/17 08:30; Start 06/20/17 at 10:00; Stop 06/24/17 at 09:59; Status DC Hydralazine HCl (Apresoline Inj) 10 mg Q1H PRN IV PUSH SBP >160 Last administered on 07/10/17 13:51; Start 06/21/17 at 07:30; Stop 07/12/17 at 00: 26; Status DC Lisinopril (Prinivil) 20 mg Q12HR PO Last administered on 08/22/17 21:16; Start 06/21/17 at 09:00; Stop 08/23/17 at 07:26; Status DC Labetalol HCl (Trandate Inj) 10 mg Q1H PRN IV PUSH SBP>160, DBP>90, HR>65 Last administered on 07/08/17 05:02; Start 06/21/17 at 07:30; Stop 07/12/17 at 00: 26; Status DC Nitroglycerin (Nitroglycerin 2% Oint) 2 inch Q6H PRN TOPICAL SBP>160, DBP>90 Last administered on 06/30/17 14:37; Start 06/21/17 at 08:00 Piperacillin Sod/ Tazobactam Sod 100 ml @ 200 mls/hr Q6H IV Last administered on 06/29/17 02:07; Start 06/21/17 at 09:00; Stop 06/29/17 at 08:59; Status DC Pharmacy Profile Note 0 ml @ 0 mls/hr UNSCH OTHER ; Start 06/21/17 at 07:30; Stop 06/23/17 at 06:46; Status DC Guaifenesin (Robitussin Liq) 400 mg Q8HR PEG Last administered on 06/29/17 06 :02; Start 06/21/17 at 14:00; Stop 06/29/17 at 13:59; Status DC Sodium Chloride (Sodium Chloride 3% Neb) 2 ml Q6HR NEB NEB Last administered on 06/29/17 08:21; Start 06/21/17 at 10:00; Stop 06/29/17 at 09:59; Status DC Insulin Detemir (Levemir Inj) 10 units Q12H SQ Last administered on 07/19/17 08:39; Start 06/21/17 at 09:00; Stop 07/19/17 at 09:26; Status DC Vancomycin HCl 1000 mg/Sodium Chloride 250 ml @ 250 mls/hr ONCE ONCE IV Last administered on 06/21/17 11:50; Start 06/21/17 at 12:00; Stop 06/21/17 at 12 :59; Status DC Vancomycin HCl 750 mg/Sodium Chloride 257.5 ml @ 250 mls/hr Q12H IV Last administered on 10/23/17at 00:02; Start 06/22/17 at 00:00; Stop 06/23/17 at 06 :46; Status DC Miscellaneous Information SPECIFIC LAB TO BE ROLF... ONCE ONCE .XX ; Start at 23:45; Stop 06/22/17 at 23:46; Status DC Miscellaneous Information SPECIFIC LAB TO BE ROLF... ONCE ONCE .XX ; Start at 11:45; Stop 06/23/17 at 11:46; Status DC Polyethylene Glycol (Miralax) 17 gm BID PEG Last administered on 07/02/17 08: 35; Start 06/23/17 at 09:00; Stop 07/09/17 at 08:04; Status DC Albuterol/ Ipratropium (Duoneb Neb) 1 ampule Q6HR NEB NEB Last administered on 07/08/17 10:22; Start 07/04/17 at 10:00; Stop 07/08/17 at 09:59; Status DC Polyethylene Glycol (Miralax) 17 gm DAILY PEG Last administered on 10/02/17at 07: 59; Start 07/09/17 at 09:00; Stop 10/03/17 at 11:56; Status DC Clonidine (Catapres) 0.1 mg Q6H PRN PO SBP >160 Last administered on 16:22; Start 07/12/17 at 00:30; Stop 10/03/17 at 11:55; Status DC Heparin Sodium (Porcine) (Heparin Inj) 5,000 units Q8HR SQ Last administered on 11/29/17at 05:37; Start 07/15/17 at 08:00 Sodium Chloride 1,000 ml @ 42 mls/hr [id number] IV Last administered on 15:15; Start 07/14/17 at 14:45; Stop 07/15/17 at 08:00; Status DC Albuterol/ Ipratropium (Duoneb Neb) 2.5 ampule Q6HR NEB NEB ; Start 07/16/17 at 16:45; Stop 07/16/17 at 19:01; Status DC Hyoscyamine Sulfate (Levsin Liq) 0.125 mg BID PEG ; Start 07/16/17 at 21:00; Stop 07/16/17 at 21:00; Status DC Albuterol Sulfate (Albuterol Neb) 2.5 mg Q6HR NEB INH Last administered on 19:49; Start 07/16/17 at 22:00; Stop 07/20/17 at 21:59; Status DC Acetylcysteine (Mucomyst 20% Neb) 2 ml Q8HR NEB PRN NEB SECRETIONS; Start at 08:00; Stop 07/17/17 at 08:00; Status DC Acetylcysteine (Mucomyst 20% Neb) 2 ml Q8HR NEB PRN NEB SECRETIONS Last administered on 07/21/17 03:31; Start 07/17/17 at 08:00; Stop 07/21/17 at 07 :59; Status DC Trimethoprim/ Sulfamethoxazole (Bactrim 800-160 Mg/20 ml Liq) 20 ml Q12H PO ; Start 07/17/17 at 09:45; Stop 07/17/17 at 09:50; Status DC Trimethoprim/ Sulfamethoxazole (Bactrim 800-160 Mg/20 ml Liq) 20 ml Q12HR PEG Last administered on 07/19/17 21:27; Start 07/17/17 at 11:00; Stop 07/19/17 at 21:01; Status DC Insulin Detemir (Levemir Inj) 15 units Q12H SQ Last administered on 07/20/17 08:00; Start 07/19/17 at 21:00; Stop 07/20/17 at 08:26; Status DC Insulin Detemir (Levemir Inj) 18 units Q12H SQ Last administered on 07/22/17 13:46; Start 07/20/17 at 21:00; Stop 07/22/17 at 14:39; Status DC Trimethoprim/ Sulfamethoxazole (Bactrim 800-160 Mg/20 ml Liq) 20 ml Q12HR PEG Last administered on 07/21/17 08:12; Start 07/20/17 at 15:00; Stop 07/21/17 at 13:16; Status DC Albuterol/ Ipratropium (Duoneb Neb) 1 ampule ONCE ONCE NEB Last administered on 07/21/17 03:30; Start 07/21/17 at 03:30; Stop 07/21/17 at 03:31; Status DC Albuterol/ Ipratropium (Duoneb Neb) 1 ampule ONCE PRN NEB SHORTNESS OF BREATH; Start 07/21/17 at 04:15; Stop 07/21/17 at 07:30; Status DC Albuterol/ Ipratropium (Duoneb Neb) 1 ampule Q6HR NEB NEB Last administered on 07/25/17 09:05; Start 07/21/17 at 10:00; Stop 07/25/17 at 09:59; Status DC Acetylcysteine (Mucomyst 20% Neb) 2 ml Q8HR NEB PRN NEB SECRETIONS; Start at 07:00; Stop 07/21/17 at 07:24; Status DC Piperacillin Sod/ Tazobactam Sod 100 ml @ 200 mls/hr Q6H IV Last administered on 07/25/17 04:56; Start 07/21/17 at 10:00; Stop 07/25/17 at 07:50; Status DC Azithromycin 500 mg/Sodium Chloride 250 ml @ 250 mls/hr Q24H IV Last administered on 07/25/17 10:58; Start 07/21/17 at 11:00; Stop 07/25/17 at 13 :36; Status DC Insulin Aspart (NovoLOG SUPPLEMENTAL SCALE) 1 Q6HR SQ Last administered on at 06:47; Start 07/21/17 at 18:00; Stop 10/08/17 at 09:45; Status DC Insulin Detemir (Levemir Inj) 15 units Q12H SQ Last administered on 07/26/17 23:10; Start 07/22/17 at 21:00; Stop 07/27/17 at 09:00; Status DC Ceftolozane/ Tazobactam 1500 mg/Sodium Chloride 100 ml @ 100 mls/hr Q8H IV Last administered on 08/06/17 08:25; Start 07/25/17 at 09:00; Stop 08/06/17 at 12:58; Status DC Fluconazole/ Sodium Chloride 100 ml @ 100 mls/hr ONCE ONCE IV Last administered on 07/26/17 17:00; Start 07/26/17 at 17:00; Stop 07/26/17 at 17 :59; Status DC Insulin Detemir (Levemir Inj) 7 units Q12HR SQ Last administered on 09/14/17 07:32; Start 07/27/17 at 09:00; Stop 09/14/17 at 15:42; Status DC Furosemide (Lasix Liq) 40 mg ONCE ONCE NG Last administered on 07/29/17 17: 29; Start 07/29/17 at 16:00; Stop 07/29/17 at 16:02; Status DC Lactated Ringer's 1,000 ml @ 30 mls/hr Q24H PRN IV SEE LABEL COMMENTS; Start 08/03/17 at 06:30; Stop 08/06/17 at 06:29; Status DC Lidocaine/ Epinephrine (Xylocaine-Epi 1%-1:100,000 Inj) 20 ml STK-MED ONCE .ROUTE Last administered on 08/05/17 17:58; Start 08/05/17 at 17:58; Stop 08/05/17 at 17:59; Status DC Colistin Sulfate (Coly-Mycin M Neb) 75 mg Q8HR NEB NEB Last administered on 08:25; Start 08/06/17 at 16:00; Stop 08/12/17 at 15:59; Status DC Furosemide (Lasix Liq) 40 mg ONCE ONCE NG Last administered on 08/08/17 12: 54; Start 08/08/17 at 12:15; Stop 08/08/17 at 12:16; Status DC Albuterol/ Ipratropium (Duoneb Neb) 1 ampule Q6HR NEB PRN NEB WHEEZING Last administered on 10/16/17 07:17; Start 08/10/17 at 14:00; Stop 10/25/17 at 08: 28; Status DC Lisinopril (Prinivil) 30 mg Q12HR PO Last administered on 08/24/17 21:00; Start 08/23/17 at 09:00; Stop 08/25/17 at 07:46; Status DC Lisinopril (Prinivil) 40 mg Q12HR PO Last administered on 09/15/17 20:54; Start 08/25/17 at 09:00; Stop 09/15/17 at 22:16; Status DC Amlodipine Besylate (Norvasc) 5 mg DAILY PO Last administered on 09/01/17 09:24 ; Start 08/31/17 at 09:00; Stop 09/02/17 at 06:48; Status DC Amlodipine Besylate (Norvasc) 10 mg DAILY PO Last administered on 10/02/17at 08: 00; Start 09/02/17 at 09:00; Stop 10/03/17 at 11:55; Status DC Metoprolol Tartrate (Lopressor) 12.5 mg Q12HR PO Last administered on 09/06/17at 08:46; Start 09/05/17 at 21:00; Stop 10/03/17 at 11:55; Status DC Miscellaneous (Pill Splitter) 1 ea UNSCH PRN OTHER SEE LABEL COMMENTS; Start at 11:00 Trimethoprim/ Sulfamethoxazole (Bactrim 800-160 Mg/20 ml Liq) 20 ml Q12H PEG ; Start 09/09/17 at 20:00; Stop 09/09/17 at 20:00; Status DC Trimethoprim/ Sulfamethoxazole (Bactrim Ds 800-160 Mg) 1 tab Q12HR PEG Last administered on 09/29/17at 09:36; Start 09/09/17 at 21:00; Stop 09/29/17 at 22:01 ; Status DC Insulin Detemir (Levemir Inj) 12 units Q12HR SQ Last administered on 09/20/17at 20:49; Start 09/14/17 at 21:00; Stop 09/21/17 at 08:28; Status DC Lisinopril (Prinivil) 40 mg DAILY PO Last administered on 09/19/17at 09:39; Start 09/16/17 at 09:00; Stop 09/20/17 at 17:11; Status DC Sodium Polystyrene Sulfonate (Kayexalate Liq) 15 gm ONCE ONCE PO Last administered on 09/16/17at 11:01; Start 09/16/17 at 10:45; Stop 09/16/17 at 10:46 ; Status DC Acetaminophen (Tylenol) 500 mg Q6H PRN PEG Fever > 100.0F Last administered on 09/16/17at 16:36; Start 09/16/17 at 16:15; Stop 10/26/17 at 06:36; Status DC Dextrose 1,000 ml @ 75 mls/hr [id number] IV Last administered on 09/20/17at 11:09 ; Start 09/18/17 at 15:30; Stop 09/20/17 at 17:11; Status DC Lisinopril (Prinivil) 20 mg DAILY PO ; Start 09/21/17 at 09:00; Stop 09/21/17 at 23:55; Status DC Metoclopramide HCl (Reglan Inj) 10 mg ONCE ONCE IV PUSH Last administered on at 03:37; Start 09/21/17 at 03:15; Stop 09/21/17 at 03:16; Status DC Insulin Detemir (Levemir Inj) 12 units HS SQ Last administered on 09/26/17at 21: 00; Start 09/21/17 at 21:00; Stop 09/27/17 at 17:31; Status DC Calcium Gluconate 1 gm/Dextrose 110 ml @ 110 mls/hr ONCE ONCE IV Last administered on 09/21/17at 11:43; Start 09/21/17 at 11:15; Stop 09/21/17 at 12:14 ; Status DC Sodium Polystyrene Sulfonate (Kayexalate Liq) 15 gm QID PEG Last administered on 09/22/17at 09:30; Start 09/21/17 at 13:00; Stop 09/22/17 at 09:02; Status DC Insulin Human Regular (NovoLIN R INJ) 10 units ONCE ONCE IV PUSH Last administered on 09/21/17at 11:42; Start 09/21/17 at 11:30; Stop 09/21/17 at 11:31 ; Status DC Dextrose (D50w (Vial) Inj) 50 ml ONCE ONCE IV PUSH Last administered on at 11:42; Start 09/21/17 at 11:30; Stop 09/21/17 at 11:31; Status DC Albuterol Sulfate (Albuterol Concentrated Neb) 10 mg ONCE ONCE INH Last administered on 09/21/17at 11:30; Start 09/21/17 at 11:30; Stop 09/21/17 at 11:31 ; Status DC Sodium Chloride 500 ml @ 100 mls/hr Q5H IV Last administered on 09/21/17at 13: 38; Start 09/21/17 at 13:00; Stop 09/21/17 at 17:59; Status DC Sodium Chloride 1,000 ml @ 42 mls/hr [id number] IV Last administered on at 08:34; Start 09/21/17 at 21:00; Stop 09/24/17 at 08:24; Status DC Hydralazine HCl (Apresoline) 10 mg Q8HR PEG Last administered on 11/29/17at 05: 37; Start 09/24/17 at 14:00 Hydralazine HCl (Apresoline) 10 mg ONCE ONCE PEG Last administered on at 11:49; Start 09/24/17 at 09:00; Stop 09/24/17 at 09:01; Status DC Cefepime HCl 2000 mg/Sodium Chloride 100 ml @ 200 mls/hr Q8H IV Last administered on 09/29/17at 05:35; Start 09/25/17 at 12:00; Stop 09/29/17 at 08:46 ; Status DC Sodium Polystyrene Sulfonate (Kayexalate Liq) 15 gm ONCE ONCE RECTAL Last administered on 09/26/17at 10:51; Start 09/26/17 at 09:15; Stop 09/26/17 at 09:16 ; Status DC Sodium Polystyrene Sulfonate (Kayexalate Liq) 15 gm ONCE ONCE PEG Last administered on 09/27/17at 18:11; Start 09/27/17 at 17:15; Stop 09/27/17 at 17:16 ; Status DC Insulin Detemir (Levemir Inj) 10 units BID SQ Last administered on 09/29/17at 09 :37; Start 09/27/17 at 21:00; Stop 09/29/17 at 15:14; Status DC Doxazosin Mesylate (Cardura) 1 mg DAILY PO Last administered on 10/02/17at 07:59 ; Start 09/28/17 at 10:00; Stop 10/03/17 at 11:55; Status DC Ceftolozane/ Tazobactam 1500 mg/Sodium Chloride 100 ml @ 100 mls/hr Q8H IV Last administered on 09/30/17at 01:51; Start 09/29/17 at 10:00; Stop 09/30/17 at 10:38; Status DC Lactobacillus Acidophilus (Lactinex) 1 tab Q12HR PO Last administered on at 09:08; Start 09/29/17 at 21:00; Stop 10/03/17 at 11:55; Status DC Insulin Human NPH (NovoLIN N INJ) 7 units TID SQ Last administered on at 18:16; Start 09/29/17 at 18:00; Stop 10/01/17 at 19:07; Status DC Acetylcysteine (Mucomyst 10% Neb) 2 ml Q6HR NEB NEB ; Start 09/29/17 at 16:00; Stop 09/29/17 at 16:21; Status DC Acetylcysteine (Mucomyst 10% Neb) 2 ml Q6HR NEB NEB Last administered on at 08:30; Start 09/29/17 at 14:30; Stop 10/03/17 at 14:29; Status DC Metoclopramide HCl (Reglan Inj) 10 mg ONCE ONCE IV PUSH Last administered on at 22:11; Start 09/29/17 at 21:30; Stop 09/29/17 at 21:31; Status DC Trimethoprim/ Sulfamethoxazole (Bactrim 800-160 Mg/20 ml Liq) 20 ml BID PEG Last administered on 10/03/17at 09:08; Start 09/29/17 at 22:02; Stop 10/03/17 at 18 :48; Status DC Colistin Sulfate (Coly-Mycin M Neb) 75 mg Q8HR NEB NEB Last administered on at 07:29; Start 09/30/17 at 16:00; Stop 10/21/17 at 15:59; Status DC Insulin Human NPH (NovoLIN N INJ) 10 units TID SQ Last administered on at 18:43; Start 10/02/17 at 09:00; Stop 10/07/17 at 12:30; Status DC Sodium Polystyrene Sulfonate (Kayexalate Liq) 15 gm BID PO Last administered on 10/03/17at 10:09; Start 10/03/17 at 09:00; Stop 10/03/17 at 11:55; Status DC Sodium Chloride 1,000 ml @ 100 mls/hr Q10H IV Last administered on 10/03/17at 20 :26; Start 10/03/17 at 08:30; Stop 10/03/17 at 22:36; Status DC Levofloxacin/ Dextrose 100 ml @ 100 mls/hr Q24H IV Last administered on 11:46; Start 10/03/17 at 10:00; Stop 10/03/17 at 20:03; Status DC Amlodipine Besylate (Norvasc) 10 mg DAILY PEG Last administered on 11/29/17 08 :05; Start 10/04/17 at 09:00 Calcium/Vitamin D (Oscal-D 250-125) 250 mg TID PEG Last administered on 08:05; Start 10/03/17 at 13:00 Cholecalciferol (Vitamin D3) 5,000 units DAILY PEG Last administered on 08:04; Start 10/04/17 at 09:00 Clonidine (Catapres) 0.1 mg Q6H PRN PEG SBP >160 Last administered on 00:23; Start 10/03/17 at 12:30 Doxazosin Mesylate (Cardura) 1 mg DAILY PEG Last administered on 11/18/17at 09: 04; Start 10/04/17 at 09:00; Stop 11/22/17 at 17:42; Status DC Lactobacillus Acidophilus (Lactinex) 1 tab Q12HR PEG Last administered on 08:04; Start 10/03/17 at 21:00 Metoprolol Tartrate (Lopressor) 12.5 mg Q12HR PEG Last administered on 19:28; Start 10/03/17 at 21:00; Stop 10/26/17 at 08:47; Status DC Sodium Polystyrene Sulfonate (Kayexalate Liq) 15 gm BID PEG Last administered on 10/03/17at 21:00; Start 10/03/17 at 21:00; Stop 10/05/17 at 14:49; Status DC Polyethylene Glycol (Miralax) 17 gm DAILY PRN PEG Constipation; Start 10/03/17 at 12:00 Protein (Beneprotein Powder) 1 pack TID PRN G-TUBE Constipation; Start 10/03/17 at 12:00 Albuterol Sulfate (Albuterol Neb) 2.5 mg Q2HR NEB PRN NEB WHEEZING Last administered on 10/19/17at 22:09; Start 10/03/17 at 21:45 Dextrose 1,000 ml @ 30 mls/hr Q24H IV ; Start 10/03/17 at 22:45; Status Cancel Dextrose (D50w (Vial) Inj) 25 ml ONCE ONCE IV PUSH Last administered on at 22:42; Start 10/03/17 at 22:45; Stop 10/03/17 at 22:46; Status DC Furosemide (Lasix Inj) 40 mg ONCE ONCE IV PUSH Last administered on 10/03/17at 22:46; Start 10/03/17 at 22:45; Stop 10/03/17 at 22:46; Status DC Dextrose 500 ml @ 10 mls/hr Q24H IV Last administered on 10/04/17at 15:49; Start 10/03/17 at 23:00; Stop 10/05/17 at 14:49; Status DC Fentanyl Citrate (fentaNYL INJ) 100 mcg STK-MED ONCE .ROUTE ; Start 10/03/17 at 22:47; Stop 10/03/17 at 22:48; Status DC Fentanyl Citrate (fentaNYL INJ) 100 mcg NOW ONCE IV PUSH ; Start 10/03/17 at 23: 00; Stop 10/03/17 at 23:01; Status DC Fentanyl Citrate (fentaNYL INJ) 50 mcg ONCE ONCE IV PUSH Last administered on 10/03/17at 23:00; Start 10/03/17 at 23:00; Stop 10/03/17 at 23:10; Status DC Fentanyl Citrate (fentaNYL INJ) 50 mcg Q1H PRN IV PUSH SEDATION; Start 10/03/17 at 23:00; Stop 10/29/17 at 10:46; Status DC Chlorhexidine Gluconate (Peridex 0.12% Liq) 15 ml BID@08,20 MT Last administered on 10/31/17at 21:41; Start 10/04/17 at 08:00; Stop 11/01/17 at 11:43; Status DC Furosemide (Lasix Inj) 40 mg ONCE ONCE IV PUSH Last administered on 10/04/17at 05:52; Start 10/04/17 at 05:00; Stop 10/04/17 at 05:01; Status DC Furosemide (Lasix Inj) 40 mg Q6HR IV PUSH Last administered on 10/06/17at 05:28; Start 10/04/17 at 12:00; Stop 10/06/17 at 11:00; Status DC Insulin Human NPH (NovoLIN N INJ) 5 units BID@08,17 SQ Last administered on 10/10at 08:05; Start 10/07/17 at 17:00; Stop 10/10/17 at 11:33; Status DC Insulin Detemir (Levemir Inj) 7 units Q12H SQ Last administered on 10/25/17at 23 :55; Start 10/08/17 at 12:00; Stop 10/26/17 at 06:36; Status DC Dextrose (D50w (Vial) Inj) 50 ml UNSCH PRN IV PUSH HYPOGLYCEMIA-SEE COMMENTS Last administered on 10/28/17at 17:42; Start 10/08/17 at 09:45; Stop 11/04/17 at 12 :34; Status DC Glucagon (Glucagon Inj) 1 mg UNSCH PRN OTHER HYPOGLYCEMIA-SEE COMMENTS Last administered on 10/14/17at 00:45; Start 10/08/17 at 09:45; Stop 11/04/17 at 12:34; Status DC Insulin Human Regular (NovoLIN R SUPPLEMENTAL SCALE) 1 Q6HR SQ Last administered on 11/04/17at 06:00; Start 10/08/17 at 12:00; Stop 11/04/17 at 12:27; Status DC Water (Free Water) 250 ml Q8HR G-TUBE Last administered on 10/20/17at 05:20; Start 10/18/17 at 14:00; Stop 10/20/17 at 10:15; Status DC Water (Free Water) VOLUME OF WATER: ( 200 ) ML Q6HR G-TUBE Last administered on 10/27/17at 05:49; Start 10/20/17 at 12:00; Stop 10/27/17 at 10:02; Status DC Albuterol/ Ipratropium (Duoneb Neb) 1 ampule Q6HR NEB NEB Last administered on 10/29/17at 08:34; Start 10/25/17 at 10:00; Stop 10/29/17 at 09:59; Status DC Insulin Detemir (Levemir Inj) 8 units Q12H SQ Last administered on 11/29/17at 00 :20; Start 10/26/17 at 12:00 Acetaminophen (Tylenol 650 Mg/ 20 ml Liq) 650 mg Q6H PRN PEG fever; Start 10/26 at 06:45 Oxycodone HCl (Roxicodone Intensol Liq) 5 mg Q6H PRN PO pain 6-10; Start at 11:00 Iohexol (Omnipaque 350 Inj) 75 ml STK-MED ONCE IVCONTRAST Last administered on 11/01/17at 16:59; Start 11/01/17 at 16:59; Stop 11/01/17 at 17:00; Status DC Dextrose (D50w (Vial) Inj) 50 ml UNSCH PRN IV PUSH HYPOGLYCEMIA-SEE COMMENTS; Start 11/04/17 at 12:30 Glucagon (Glucagon Inj) 1 mg UNSCH PRN OTHER HYPOGLYCEMIA-SEE COMMENTS; Start 11/04/17 at 12:30 Insulin Human Regular (NovoLIN R SUPPLEMENTAL SCALE) 1 Q6H SQ Last administered on 11/29/17at 00:32; Start 11/04/17 at 12:30 Dextrose (D50w (Vial) Inj) 25 ml ONCE ONCE IV PUSH Last administered on at 12:54; Start 11/04/17 at 12:30; Stop 11/04/17 at 12:35; Status DC Metoclopramide HCl (Reglan Inj) 10 mg Q8HR IV PUSH Last administered on at 05:41; Start 11/05/17 at 22:00; Stop 11/07/17 at 13:32; Status DC Amoxicillin/ Clavulanate Potassium (Augmentin 600 Mg/5 ml Liq) 600 mg Q12H PO Last administered on 11/13/17at 23:56; Start 11/07/17 at 12:00; Stop 11/14/17 at 11:59; Status DC Metoclopramide HCl (Reglan Liq) 10 mg Q8HR PO Last administered on 11/18/17at 14:08; Start 11/07/17 at 14:30; Status Future Hold Albuterol/ Ipratropium (Duoneb Neb) 1 ampule Q6HR NEB NEB Last administered on 11/12/17at 09:08; Start 11/08/17 at 10:30; Stop 11/12/17 at 10:29; Status DC Cholestyramine Resin (Questran Light Pkt) 4 gm BID PRN PEG DIARRHEA Last administered on 11/25/17at 09:59; Start 11/12/17 at 13:30 Furosemide (Lasix Inj) 20 mg BID@09,18 IV PUSH Last administered on 11/14/17at 08:32; Start 11/13/17 at 17:00; Stop 11/14/17 at 14:49; Status DC Furosemide (Lasix Inj) 20 mg DAILY IV PUSH Last administered on 11/15/17at 09:00 ; Start 11/15/17 at 09:00; Stop 11/16/17 at 08:59; Status DC Sodium Chloride (NS Flush) 2 ml BID IV FLUSH ; Start 11/16/17 at 10:45; Status Cancel Sodium Chloride (NS Flush) 2 ml BID IV FLUSH Last administered on 11/21/17at 09: 00; Start 11/16/17 at 21:00; Stop 11/21/17 at 20:44; Status DC Albuterol Sulfate (Proventil) 2 mg ONCE ONCE PO Last administered on at 17:16; Start 11/18/17 at 15:30; Stop 11/18/17 at 15:31; Status DC Sodium Chloride 250 ml @ 250 mls/hr BOLUS ONCE IV Last administered on at 15:26; Start 11/18/17 at 14:30; Stop 11/18/17 at 15:29; Status DC Insulin Human Regular (NovoLIN R INJ) 10 units ONCE ONCE SQ Last administered on 11/18/17 18:23; Start 11/18/17 at 18:00; Stop 11/18/17 at 18:18; Status DC Dextrose (D50w (Syr) Inj) 12.5 ml ONCE ONCE IV PUSH Last administered on at 18:22; Start 11/18/17 at 18:00; Stop 11/18/17 at 18:18; Status DC Furosemide (Lasix) 20 mg DAILY PO Last administered on 11/29/17at 08:05; Start 11/20/17 at 09:00 Lisinopril (Prinivil) 5 mg ONCE ONCE PEG Last administered on 11/22/17at 17:56 ; Start 11/22/17 at 17:45; Stop 11/22/17 at 17:49; Status DC Lisinopril (Prinivil) 5 mg DAILY PEG Last administered on 11/29/17at 08:05; Start 11/23/17 at 09:00 Diphenoxylate HCl/ Atropine (Lomotil 2.5-0.025 Mg Liq) 5 ml Q6H PRN PO LOOSE STOOLS Last administered on 11/29/17at 08:07; Start 11/25/17 at 13:15 A/P Problem List: (1) Acute ischemic left middle cerebral artery (MCA) stroke ICD Code: I63.512 - Cerebral infarction due to unspecified occlusion or stenosis of left middle cerebral artery Status: Acute (2) Acute respiratory failure ICD Code: J96.00 - Acute respiratory failure, unspecified whether with hypoxia or hypercapnia (3) Right hemiplegia ICD Code: G81.91 - Hemiplegia, unspecified affecting right dominant side Status: Acute (4) Sacral decubitus ulcer ICD Code: L89.159 - Pressure ulcer of sacral region, unspecified stage Status: Chronic (5) HCAP (healthcare-associated pneumonia) ICD Code: J18.9 - Pneumonia, unspecified organism Status: Resolved (6) 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 She underwent ORIF on 04/21/17 and on 04/24 a stroke alert was called as she was found to have right hemiparesis with left gaze. She has a poor prognosis based on her lack of overall recovery over the last 6+ months. Patient has no acute issues, no change in care plan. Shortness of breath/desaturation secondary to pulmonary edema-chest x-ray done , personally reviewed, has evidence of pulmonary edema, continue Lasix, monitor BMP every few weeks. Urinary retention No leukocytosis U/A with large leuk esterase but many squamous cells Culture grew Aerococcus, finished Augmentin November 07 - November 14. Leavitt replaced Elevated D-dimer Ordered 10/31 for increasing FiO2 demand Since D-dimer elevated, CTA chest obtained to r/o PE which was negative Likely elevated in light of chronic illness RUE U/S negative for DVT - elevate R arm Left MCA stroke 5.5 mm of [id number] subfalcine herniation, diagnosed 04/24. Was not a candidate for thrombolysis at that time. Increasing edema seen on repeat CT 04/28 with a reduction in midline shift on another repeat on 04/30 Neurologic condition remained poor and she underwent trach 05/15/17 and PEG Persistent right-sided hemiparesis. Previously seen by neurology, signed off Previously seen by neurosurgery, signed off Continue daily ASA Patient has been attempting to pull tracheostomy out yesterday Hypertension / CHF Amlodipine 10 mg po daily, Doxazosin 1 mg peg daily, hydralazine 10 mg per per peg q8 hours. Clonidine 0.1 mg q6h prn Echo 10/06/17 LVSF EF = 25-30%. Chronic Tracheostomy /respiratory failure 10/22/2017 Pulmonary toilet, trach care Duo nebs as needed Pulm following, appreciate assistance Large left pneumothorax Resolved Chest tube placed 05/07, discontinued 05/12/17 Hepatitis C LFTs normalized Negative genotype/viral load Diabetes mellitus SSI Novolin R High-dose scale Levemir insulin 8u Q12 FEN PEG tube feeding with Glucerna 1.5 goal 45 cc/hr, per nutrition recommendations Loose Stools patient has been checked for Cdiff on multiple occasions, most recently 11/04 Cdiff negative already on lactinex bid Continue Questran, start Lomotil. Anal Fissure continue wound care DVT prophylaxis Heparin Discharge Planning Aggressive therapy, full code per palliative. Needs placement Problem Qualifiers (1) Acute respiratory failure: Qualified Codes: J96.00 - Acute respiratory failure, unspecified whether with hypoxia or hypercapnia (2) Sacral decubitus ulcer: Qualified Codes: L89.152 - Pressure ulcer of sacral region, stage 2 (3) Chronic respiratory failure: Qualified Codes: J96.11 - Chronic respiratory failure with hypoxia Ricardo Shafer DO Nov 29, 2017 09:59
[2017-11-30] VITALS (7 sets, daily range): BP systolic 111–154; BP diastolic 57–81; PULSE 58–81; RESP 14–18; TEMP 97–98.7; O2SAT 96–99
[2017-11-30] MEDS: INSULIN NovoLIN REGULAR SUPPLEMENTAL SCALE SQ SCH ×4 (00:30→17:47)
[2017-11-30] MEDS: INSULIN DETEMIR 100 UNITS/ML VIAL SQ SCH ×2 (02:42→12:21)
[2017-11-30] MEDS: hydrALAZINE HCL 10 MG TAB PEG SCH ×3 (06:18→22:17)
[2017-11-30] MEDS: HEPARIN SODIUM - SQ 10,000 UNITS/ML VIAL SQ SCH ×3 (06:18→22:17)
[2017-11-30] MEDS: DIPHENOXYLATE/ATROPINE 2.5 MG/0.025 MG/5 ML CUP PO PRN (08:44)
[2017-11-30] MEDS: CHOLECALCIFEROL (VIT D3) 5000 UNIT CAP PEG SCH (08:44)
[2017-11-30] MEDS: CALCIUM/VITAMIN D 250 MG/125 U TAB PEG SCH ×3 (08:44→17:46)
[2017-11-30] MEDS: ASPIRIN 325 MG TAB DOBHOFF SCH (08:44)
[2017-11-30] MEDS: LANSOPRAZOLE SOLUTAB 30 MG TAB NG SCH (08:44)
[2017-11-30] MEDS: ARTIFICIAL TEARS OPTH SOLN 15 ML BTL EACH EYE SCH ×3 (08:45→22:18)
[2017-11-30] MEDS: LISINOPRIL 5 MG TAB PEG SCH (08:45)
[2017-11-30] MEDS: FUROSEMIDE 20 MG TAB PO SCH (08:45)
[2017-11-30] MEDS: LACTOBACILLUS ACIDOPHILUS TAB PEG SCH ×2 (08:46→22:16)
--- NOTE | 2017-11-30 11:04 | HHI.PR ---
Subjective Remarks No new complaints per nursing Seen sitting in the Maddy chair Seen and examined Chart review Discussed with RN 11-29 patient has No new issues per nursing attempted to pull trach multiple times yesterday Discussed with RN Seen and examined Chart review 11-30 NO NEW ISSUES PER RN SEEN AND EXAMINED Objective Vitals Vital Signs Date Time Temp Pulse Resp B/P (MAP) Pulse Ox O2 Delivery O2 Flow Rate FiO2 11/30/17 10:20 96 T-piece 5.00 28 11/30/17 08:00 97.9 63 16 111/60 (77) 97 11/30/17 07:00 97 T-Piece 6.00 28 11/30/17 04:00 98.7 81 14 154/81 (105) 97 11/29/17 22:15 96 T-piece 5.00 28 11/29/17 20:00 96 T-Piece 5.00 28 11/29/17 20:00 97.4 73 12 142/77 (98) 95 11/29/17 16:00 98.6 60 18 123/56 (78) 98 11/29/17 12:00 98.7 57 18 106/54 (71) 97 I/O 11/29/17 11/29/17 11/29/17 11/30/17 11/30/17 11/30/17 07:00 15:00 23:00 07:00 15:00 23:00 Intake Total 1085 ml 1025 ml 1676 ml Output Total 1650 ml 1000 ml 500 ml Balance -565 ml 25 ml 1176 ml Tube Feeding 565 ml 545 ml 936 ml Other 520 ml 480 ml 740 ml Output Urine Total 1650 ml 1000 ml 500 ml Bladder Scan Volume Amount 1000 ml 1000 ml # Voids 2 # Bowel Movements 3 2 1 Imaging Last Impressions Chest X-Ray 11/13/17 0000 Signed Impressions: Service Date/Time: October 15:36 - CONCLUSION: 1. Cardiomegaly with worsening pulmonary edema pattern. 2. Probable trace left pleural effusion. Alejo De La Vega MD Upper Extremity Ultrasound 11/04/17 0000 Signed Impressions: Service Date/Time: Saturday, November 04, 2017 09:57 - CONCLUSION: No thrombus observed. Subcutaneous edema noted. Deangelo Wren Jr., MD Abdomen X-Ray 11/04/17 0000 Signed Impressions: Service Date/Time: Saturday, November 04, 2017 11:58 - CONCLUSION: Gaseous distention of bowel loops could be ileus but unchanged. Benja Ramsey MD CT Angiography 11/01/17 0000 Signed Impressions: Service Date/Time: Wednesday, November 01, 2017 16:47 - CONCLUSION: No evidence for pulmonary embolism. Please see above. Choco Mustafa MD Thoracentesis 08/05/17 1535 Signed Impressions: Service Date/Time: Saturday, August 05, 2017 16:08 - CONCLUSION: Uncomplicated CT-guided thoracentesis. Sage Adler MD Chest Ultrasound 08/02/17 0000 Signed Impressions: Service Date/Time: Tuesday, August 01, 2017 22:06 - CONCLUSION: 1. Moderate right pleural effusion, as above. Alejo De La Vega MD Hip and Pelvis X-Ray 07/09/17 0000 Signed Impressions: Service Date/Time: Sunday, July 09, 2017 14:04 - CONCLUSION: Anatomic alignment. Ricardo Middleton MD FACR Liver Ultrasound 06/19/17 0000 Signed Impressions: Service Date/Time: June 13:20 - CONCLUSION: 1. Mildly increased echotexture of the liver characteristic of hepatic steatosis. 2. Gallbladder sludge. Obdulio Sam MD Head CT 05/15/17 0000 Signed Impressions: Service Date/Time: May 19:59 - CONCLUSION: 1. 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 2. No bleed or new/acute infarct. Obdulio Simms MD Gall Bladder Ultrasound 05/08/17 0000 Signed Impressions: Service Date/Time: May 08:23 - CONCLUSION: Focally unremarkable appearance of the gallbladder Obdulio Chun MD Abdomen/Pelvis CT 05/07/17 0000 Signed Impressions: Service Date/Time: Sunday, May 07, 2017 13:23 - CONCLUSION: 1. Large left pneumothorax. 2. Bilateral lower lobe consolidation and bilateral moderate size pleural effusions. 3. Significant soft tissue thickening of the right lateral chest wall and left gluteus muscle. 4. Mild ascites. The findings were called to Dr. Carney. Deangelo Zamora MD Chest CT 04/30/17 0000 Signed Impressions: Service Date/Time: Sunday, April 30, 2017 09:20 - CONCLUSION: 1. Bilateral pulmonary infiltrates more pronounced within the lower lobes with tiny bilateral pleural effusions. Material seen filling the lower lobe bronchi bilaterally either related to purulent material or perhaps mucus plugging. Deangelo Wren Jr., MD Carotid Artery Ultrasound 04/24/17 0000 Signed Impressions: Service Date/Time: April 09:45 - CONCLUSION: 1. No hemodynamically significant carotid artery stenosis. Arnie Middleton MD Hip X-Ray 04/21/17 0000 Signed Impressions: Service Date/Time: Friday, April 21, 2017 11:36 - CONCLUSION: Fluoroscopic images during placement of intramedullary siomara left femur. Benja Ramsey MD Objective Remarks GENERAL: Awake follows no commands left side is flaccid can move right side review of systems is unobtainable SKIN: Warm and dry. HEAD: Atraumatic. Normocephalic. EYES: Pupils equal and round. No scleral icterus. No injection or drainage. ENT: No nasal bleeding or discharge. Mucous membranes pink and moist. NECK: Trachea midline. No JVD. Supple tracheostomy in place CARDIOVASCULAR: Regular rate and rhythm. S1-S2 no S3 or S4 RESPIRATORY: No accessory muscle use. Clear to auscultation. Breath sounds equal bilaterally. GASTROINTESTINAL: Abdomen soft, non-tender, nondistended. Hepatic and splenic margins not palpable. PEG tube in place MUSCULOSKELETAL: Extremities without clubbing, cyanosis, or edema. No obvious deformities. NEUROLOGICAL: Awake and alert. No obvious cranial nerve deficits. Motor grossly within normal limits. Moves left side does not follow commands. No speech. PSYCHIATRIC: INAppropriate mood and affect; insight and judgment ABnormal. Procedures PEG tube trach 05/15/17 and PEG 05/16/17 Medications and IVs Current Medications Potassium Chloride 100 ml @ As Directed STK-MED ONCE .ROUTE Last administered on 04/20/17t 13:58; Start 04/20/17 at 13:50; Stop 04/20/17 at 13:51; Status DC Sodium Chloride 1,000 ml @ 250 mls/hr Q4H IV ; Start 04/20/17 at 14:30; Stop at 21:57; Status DC Dextrose/Sodium Chloride 1,000 ml @ 200 mls/hr Q5H IV Last administered on t 14:30; Start 04/20/17 at 14:30; Stop 04/20/17 at 21:57; Status DC Miscellaneous Medication ([facility] Information) Mix all IV Medications in Nor... UNSCH .XX ; Start 04/20/17 at 14:30; Stop 04/20/17 at 21:57; Status DC Potassium Chloride 100 ml @ 100 mls/hr Q1H PRN IV SEE PROTOCOL; Start at 14:30; Stop 04/20/17 at 21:57; Status DC Potassium Chloride 100 ml @ 50 mls/hr Q2H PRN IV SEE PROTOCOL; Start 04/20/17 at 14:30; Stop 04/20/17 at 21:57; Status DC Potassium Chloride 100 ml @ 100 mls/hr Q1H PRN IV SEE PROTOCOL; Start at 14:30; Stop 04/20/17 at 21:57; Status DC Potassium Chloride 100 ml @ 100 mls/hr Q1H PRN IV SEE PROTOCOL TABLE; Start at 14:30; Stop 04/20/17 at 21:57; Status DC Potassium Chloride 100 ml @ 50 mls/hr Q2H PRN IV SEE PROTOCOL; Start 04/20/17 at 14:30; Stop 04/20/17 at 21:57; Status DC Potassium Chloride 100 ml @ 50 mls/hr Q2H PRN IV SEE PROTOCOL TABLE; Start at 14:30; Stop 04/20/17 at 21:57; Status DC Potassium Chloride 100 ml @ 50 mls/hr Q2H PRN IV SEE PROTOCOL TABLE; Start at 14:30; Stop 04/20/17 at 21:57; Status DC Potassium Chloride 100 ml @ 50 mls/hr Q2H PRN IV SEE PROTOCOL TABLE; Start at 14:30; Stop 04/20/17 at 21:57; Status DC Insulin Human Regular (NovoLIN R INJ) 0.1 units/ Kg actual body weight BOLUS ONCE IV PUSH Last administered on 04/20/17t 15:51; Start 04/20/17 at 14:30; Stop 04/20/17 at 14:31; Status DC Insulin Human Regular 100 units/ Sodium Chloride 100 ml @ 0 mls/hr TITRATE IV ; Start 04/20/17 at 14:30; Stop 04/20/17 at 21:57; Status DC Dextrose (D50w (Vial) Inj) 50 ml Q10M PRN IV PUSH HYPOGLYCEMIA DKA -SEE COMMENTS; Start 04/20/17 at 14:30; Stop 04/20/17 at 21:57; Status DC Sodium Bicarbonate (Sodium Bicarbonate 8.4% Inj) 100 meq STAT PRN IV SEE LABEL COMMENTS; Start 04/20/17 at 14:30; Stop 04/20/17 at 21:57; Status DC Sodium Bicarbonate (Sodium Bicarbonate 8.4% Inj) 50 meq STAT PRN IV SEE LABEL COMMENTS; Start 04/20/17 at 14:30; Stop 04/20/17 at 21:57; Status DC Sodium Phosphate 15 mmol/Sodium Chloride 105 ml @ 25 mls/hr UNSCH PRN IV SEE PROTOCOL TABLE; Start 04/20/17 at 14:30; Stop 04/20/17 at 21:57; Status DC Acetaminophen (Tylenol) 650 mg Q6H PRN PO PAIN SCALE 1 TO 2 Last administered on 05/03/17 00:27; Start 04/20/17 at 14:30; Stop 05/07/17 at 12:46; Status DC Ondansetron HCl (Zofran Inj) 4 mg Q6H PRN IV PUSH NAUSEA AND VOMITING Last administered on 04/30/17 02:28; Start 04/20/17 at 15:00; Stop 08/04/17 at 16:22 ; Status DC Heparin Sodium (Porcine) (Heparin Inj) 5,000 units Q12HR SQ Last administered on 04/20/17 21:00; Start 04/20/17 at 21:00; Stop 04/21/17 at 11:44; Status DC Morphine Sulfate (Morphine Inj) 1 mg Q3H PRN IV Pain 3-5; if unable to take PO Last administered on 04/28/17 18:15; Start 04/20/17 at 17:15; Stop 05/19/17 at 07:55; Status DC Morphine Sulfate (Morphine Inj) 2 mg Q3H PRN IV Pain 6-10;if unable to take PO Last administered on 04/30/17 02:29; Start 04/20/17 at 17:15; Stop 05/19/17 at 07:55; Status DC Naloxone HCl (Narcan Inj) 0.4 mg UNSCH PRN IV SEE LABEL COMMENTS; Start at 17:15 Senna/Docusate Sodium (Nalini-Colace) 1 tab BID PO Last administered on 05/07/17 10:30; Start 04/20/17 at 21:00; Stop 05/07/17 at 12:50; Status DC Magnesium Hydroxide (Milk Of Magnesia Liq) 30 ml Q12H PRN PO MILD - MODERATE CONSTIPATION; Start 04/20/17 at 20:30; Stop 07/26/17 at 16:12; Status DC Sennosides (Senokot) 17.2 mg Q12H PRN PO MODERATE - SEVERE CONSTIPATION Last administered on 04/23/17 22:55; Start 04/20/17 at 20:30; Stop 05/19/17 at 08:05 ; Status DC Bisacodyl (Dulcolax Supp) 10 mg DAILY PRN RECTAL SEVERE CONSITIPATION; Start at 20:30; Stop 07/26/17 at 16:12; Status DC Lactulose (Lactulose Liq) 30 ml DAILY PRN PO SEVERE CONSITIPATION; Start at 20:30; Stop 05/05/17 at 09:24; Status DC Dextrose (D50w (Vial) Inj) 50 ml UNSCH PRN IV HYPOGLYCEMIA-SEE COMMENTS; Start 04/20/17 at 21:45; Stop 04/24/17 at 09:34; Status DC Glucagon (Glucagon Inj) 1 mg UNSCH PRN OTHER HYPOGLYCEMIA-SEE COMMENTS; Start 04/20/17 at 21:45; Stop 04/24/17 at 09:34; Status DC Insulin Aspart (NovoLOG SUPPLEMENTAL SCALE) 1 ACHS SLIDING SCALE SQ Last administered on 04/24/17 06:43; Start 04/21/17 at 07:00; Stop 04/24/17 at 09:35 ; Status DC Calcium Carbonate (Oscal) 500 mg ONCE ONCE PO ; Start 04/21/17 at 07:00; Stop 04/21/17 at 07:11; Status DC Sodium Phosphate 15 mmol/Sodium Chloride 155 ml @ 38.75 mls/ hr ONCE ONCE IV Last administered on 04/21/17 09:32; Start 04/21/17 at 07:00; Stop 04/21/17 at 10:59; Status DC Sodium Chloride 1,000 ml @ 75 mls/hr [id number] IV ; Start 04/21/17 at 09:03; Stop 04/21/17 at 09:03; Status DC Sodium Chloride 1,000 ml @ 100 mls/hr Q10H IV Last administered on 04/23/17 02:15; Start 04/21/17 at 09:03; Stop 04/24/17 at 09:12; Status DC Cefazolin Sodium (Ancef Inj) 1,000 mg STK-MED ONCE .ROUTE Last administered on 04/21/17 10:38; Start 04/21/17 at 10:30; Stop 04/21/17 at 10:31; Status DC Gentamicin Sulfate (Gentamicin Inj) 160 mg STK-MED ONCE .ROUTE Last administered on 04/21/17 11:36; Start 04/21/17 at 10:30; Stop 04/21/17 at 10:31 ; Status DC Vancomycin HCl (Vancomycin Inj) 1,000 mg STK-MED ONCE .ROUTE Last administered on 04/21/17 11:04; Start 04/21/17 at 10:40; Stop 04/21/17 at 10:41; Status DC Bupivacaine HCl/ Epinephrine Bitart (Sensorcaine-Epinephrine 0.25% Inj) 50 ml STK-MED ONCE .ROUTE Last administered on 04/21/17 11:39; Start 04/21/17 at 11: 39; Stop 04/21/17 at 11:40; Status DC IV Flush (NS Flush) 2 ml UNSCH PRN IVF FLUSH AFTER USING IV ACCESS; Start 04/21 at 11:45; Stop 04/24/17 at 09:34; Status DC IV Flush (NS Flush) 2 ml BID IVF Last administered on 04/23/17 07:51; Start at 21:00; Stop 04/24/17 at 09:34; Status DC Enoxaparin Sodium (Lovenox Inj) 30 mg Q24H SQ Last administered on 04/23/17 11 :01; Start 04/22/17 at 11:00; Stop 04/24/17 at 18:07; Status DC Cefazolin Sodium 1000 mg/Sodium Chloride 100 ml @ 200 mls/hr Q8H IV Last administered on 04/22/17 09:07; Start 04/21/17 at 18:00; Stop 04/22/17 at 10:29 ; Status DC Calcium/Vitamin D (Oscal-D 250-125) 250 mg TID PO Last administered on 09:56; Start 04/21/17 at 13:00; Stop 10/03/17 at 11:55; Status DC Diphenhydramine HCl (Benadryl) 25 mg Q6H PRN PO ITCHING; Start 04/21/17 at 11: 45; Stop 04/24/17 at 08:24; Status DC Acetaminophen/ Hydrocodone Bitart (Britton 7.5-325 Mg) 1 tab Q3H PRN PO pain 3< 10 Last administered on 05/03/17 20:17; Start 04/21/17 at 11:45; Stop 05/07/17 at 12:46; Status DC Cholecalciferol (Vitamin D3) 5,000 units DAILY PO Last administered on 09:08; Start 04/22/17 at 09:00; Stop 10/03/17 at 11:55; Status DC Ergocalciferol (Drisdol) 50,000 units ONCE ONCE PO ; Start 04/21/17 at 13:00; Stop 04/21/17 at 13:01; Status DC Midazolam HCl (Versed Inj) 2 mg STK-MED ONCE .ROUTE ; Start 04/21/17 at 12:15; Stop 04/21/17 at 12:16; Status DC Fentanyl Citrate (fentaNYL INJ) 250 mcg STK-MED ONCE .ROUTE ; Start 04/21/17 at 12:16; Stop 04/21/17 at 12:17; Status DC Morphine Sulfate (*morphine INJ PERIprocedure ONLY) 8 mg STK-MED ONCE .ROUTE Last administered on 04/21/17 12:37; Start 04/21/17 at 12:36; Stop 04/21/17 at 12:37; Status DC Miscellaneous Information ALL NURSING DEPARTME... UNSCH PRN .XX SEE LABEL COMMENTS; Start 04/21/17 at 13:00; Stop 04/22/17 at 12:59; Status DC Calcium Carbonate (Oscal) 500 mg ONCE ONCE PO ; Start 04/24/17 at 08:00; Stop 04/24/17 at 08:01; Status DC Sodium Chloride 1,000 ml @ 70 mls/hr [id number] IV ; Start 04/24/17 at 09:15; Stop 04/24/17 at 09:37; Status DC IV Flush (NS Flush) 2 ml BID IV FLUSH Last administered on 11/16/17at 09:00; Start 04/24/17 at 21:00; Stop 11/16/17 at 10:52; Status DC IV Flush (NS Flush) 2 ml UNSCH PRN IV FLUSH FLUSH AFTER USING IV ACCESS Last administered on 09/17/17at 08:48; Start 04/24/17 at 09:30; Stop 11/21/17 at 20:44 ; Status DC Sodium Chloride 1,000 ml @ 70 mls/hr [id number] IV Last administered on 03:38; Start 04/24/17 at 09:25; Stop 04/30/17 at 07:51; Status DC Aspirin (Aspirin Supp) 300 mg DAILY RECTAL Last administered on 04/26/17 08:38 ; Start 04/24/17 at 09:30; Stop 04/26/17 at 15:21; Status DC Insulin Aspart (NovoLOG SUPPLEMENTAL SCALE) 1 ACHS SQ Last administered on 04/24 17:29; Start 04/24/17 at 11:00; Stop 04/24/17 at 18:07; Status DC Dextrose (D50w (Vial) Inj) 50 ml UNSCH PRN IV PUSH HYPOGLYCEMIA-SEE COMMENTS; Start 04/24/17 at 09:30; Stop 04/24/17 at 18:07; Status DC Glucagon (Glucagon Inj) 1 mg UNSCH PRN OTHER HYPOGLYCEMIA-SEE COMMENTS; Start 04/24/17 at 09:30; Stop 04/24/17 at 18:07; Status DC Insulin Aspart (NovoLOG SUPPLEMENTAL SCALE) 1 Q4HR SQ ; Start 04/24/17 at 18:15 ; Stop 04/24/17 at 20:43; Status DC Dextrose (D50w (Vial) Inj) 25 ml UNSCH PRN IV HYPOGLYCEMIA-SEE COMMENTS; Start 04/24/17 at 18:15; Stop 04/26/17 at 20:28; Status DC Glucagon (Glucagon Inj) 1 mg UNSCH PRN IM/SQ HYPOGLYCEMIA-SEE COMMENTS; Start 04/24/17 at 18:15; Stop 05/21/17 at 13:34; Status DC Insulin Aspart (NovoLOG SUPPLEMENTAL SCALE) 1 Q4H SQ Last administered on 03:48; Start 04/24/17 at 22:00; Stop 04/26/17 at 09:43; Status DC Insulin Detemir (Levemir Inj) 10 units HS SQ Last administered on 04/25/17 23: 46; Start 04/25/17 at 21:00; Stop 04/26/17 at 09:43; Status DC Insulin Detemir (Levemir Inj) 20 units BID SQ Last administered on 04/26/17 11 :05; Start 04/26/17 at 10:00; Stop 04/27/17 at 08:34; Status DC Mannitol (Mannitol Inj) 12.5 gm Q6HR IV Last administered on 04/26/17 11:06; Start 04/26/17 at 12:00; Stop 04/28/17 at 18:33; Status DC Dextrose (D50w (Vial) Inj) 50 ml UNSCH PRN IV HYPOGLYCEMIA-SEE COMMENTS; Start 04/26/17 at 09:45; Status UNV Glucagon (Glucagon Inj) 1 mg UNSCH PRN OTHER HYPOGLYCEMIA-SEE COMMENTS; Start 04/26/17 at 09:45; Status UNV Insulin Aspart (NovoLOG SUPPLEMENTAL SCALE) 1 ACHS SLIDING SCALE SQ Last administered on 04/26/17 11:48; Start 04/26/17 at 11:00; Stop 04/26/17 at 15:24 ; Status DC Insulin Aspart (NovoLOG SUPPLEMENTAL SCALE) 1 Q4HR SQ Last administered on 04/28 09:38; Start 04/26/17 at 16:00; Stop 04/28/17 at 15:40; Status DC Aspirin (Aspirin) 325 mg DAILY DOBHOFF Last administered on 11/30/17at 08:44; Start 04/27/17 at 09:00 Dextrose (D50w (Syr) Inj) 25 ml UNSCH PRN IV HYPOGLYCEMIA- SEE COMMENTS Last administered on 05/18/17 00:22; Start 04/26/17 at 20:30; Stop 05/19/17 at 08:01 ; Status DC Metoprolol Tartrate (Lopressor Inj) 5 mg Q5M PRN IV PUSH HR>150 Last administered on 06/02/17 03:21; Start 04/27/17 at 04:00; Stop 07/12/17 at 01: 05; Status DC Insulin Detemir (Levemir Inj) 15 units BID SQ Last administered on 04/28/17 09 :39; Start 04/27/17 at 09:00; Stop 04/28/17 at 15:36; Status DC Potassium Chloride 100 ml @ 50 mls/hr Q2H PRN IV For Potassium 2.8 - 3.2 mEq/L ; Start 04/27/17 at 08:45; Stop 07/12/17 at 00:31; Status DC Potassium Chloride 100 ml @ 50 mls/hr Q2H PRN IV For Potassium 2.8 - 3.2 mEq/ L Last administered on 05/18/17 10:41; Start 04/27/17 at 08:45; Stop 07/12/17 at 00:31; Status DC Potassium Bicarb/ Potassium Chloride (K-Lyte Cl Eff) 50 meq UNSCH PRN PO For Potassium 3.3 - 3.5 mEq/L; Start 04/27/17 at 08:45; Stop 07/12/17 at 00:31; Status DC Potassium Chloride 100 ml @ 25 mls/hr UNSCH PRN IV For Potassium 3.3 - 3.5 mEq /L Last administered on 05/04/17 19:07; Start 04/27/17 at 08:45; Stop 07/12/17 at 00:31; Status DC Potassium Chloride 100 ml @ 50 mls/hr Q2H PRN IV For Potassium 3.3 - 3.5 mEq/ L Last administered on 05/18/17 08:29; Start 04/27/17 at 08:45; Stop 07/12/17 at 00:31; Status DC Magnesium Sulfate 4 gm/Sodium Chloride 100 ml @ 50 mls/hr UNSCH PRN IV For Magnesium 0.9 - 1.1 mg/dL; Start 04/27/17 at 08:45; Stop 07/12/17 at 00:31; Status DC Magnesium Oxide (Mag-Ox) 800 mg UNSCH PRN PO For Magnesium 1.2 - 1.6 mg/dL; Start 04/27/17 at 08:45; Stop 07/12/17 at 00:31; Status DC Magnesium Sulfate 2 gm/Sodium Chloride 100 ml @ 50 mls/hr UNSCH PRN IV For Magnesium 1.2 - 1.6 mg/dL; Start 04/27/17 at 08:45; Stop 07/12/17 at 00:31; Status DC Potassium Phosphate (K-Phos) 2,000 mg Q4H PRN PO For Phosphorus < 2.5 mg/dL Last administered on 04/28/17 15:38; Start 04/27/17 at 08:45; Stop 07/12/17 at 00:31; Status DC Sodium Phosphate 30 mmol/Sodium Chloride 250 ml @ 42 mls/hr UNSCH PRN IV For Phosphorus < 2.5 mg/dL Last administered on 04/27/17 23:59; Start 04/27/17 at 08:45; Stop 07/12/17 at 00:31; Status DC Potassium Phosphate (K-Phos) 2,000 mg UNSCH PRN PO/TUBE SEE LABEL COMMENTS Last administered on 05/08/17 06:32; Start 04/27/17 at 08:45; Stop 07/12/17 at 00:31; Status DC Potassium Phosphate 30 mmol/ Sodium Chloride 260 ml @ 42 mls/hr UNSCH PRN IV SEE LABEL COMMENTS Last administered on 05/04/17 20:54; Start 04/27/17 at 08:45 ; Stop 07/12/17 at 00:31; Status DC Insulin Detemir (Levemir Inj) 10 units BID SQ Last administered on 04/30/17 21 :00; Start 04/28/17 at 21:00; Stop 05/01/17 at 07:49; Status DC Pantoprazole Sodium (Protonix Inj) 40 mg Q24H IV PUSH Last administered on 17:00; Start 04/28/17 at 17:00; Stop 05/07/17 at 12:52; Status DC Insulin Aspart (NovoLOG SUPPLEMENTAL SCALE) 1 ACHS SLIDING SCALE SQ Last administered on 05/18/17 21:00; Start 04/28/17 at 16:00; Stop 05/19/17 at 07:55 ; Status DC Sodium Chloride 250 ml @ 15 mls/hr ONCE ONCE IV ; Start 04/28/17 at 18:00; Stop 04/28/17 at 18:33; Status DC Acetaminophen (Ofirmev 1000 Mg/ 100 ml Inj) 1,000 mg NOW ONCE IV Last administered on 04/29/17 01:00; Start 04/29/17 at 01:00; Stop 04/29/17 at 01:01 ; Status DC Iohexol (Omnipaque 350 Inj) 75 ml STK-MED ONCE IVCONTRAST Last administered on 04/26/17 04:26; Start 04/26/17 at 04:26; Stop 04/29/17 at 10:24; Status DC Fluconazole/ Sodium Chloride 100 ml @ 100 mls/hr Q24H IV Last administered on 04/30/17 14:59; Start 04/29/17 at 14:00; Stop 04/30/17 at 15:40; Status DC Metronidazole (Flagyl) 500 mg Q8HR DOBHOFF Last administered on 05/13/17 13:37 ; Start 04/29/17 at 14:00; Stop 05/13/17 at 16:14; Status DC Albuterol/ Ipratropium (Duoneb Neb) 1 ampule Q4HR NEB PRN NEB CONGESTION Last administered on 05/04/17 20:38; Start 04/30/17 at 04:45; Stop 05/07/17 at 12:46; Status DC Bumetanide (Bumex Inj) 1 mg ONCE ONCE IV PUSH Last administered on 04/30/17 10:14; Start 04/30/17 at 08:00; Stop 04/30/17 at 08:01; Status DC Potassium Chloride/Sodium Chloride 1,000 ml @ 84 mls/hr [id number] IV Last administered on 05/01/17 07:00; Start 04/30/17 at 08:00; Stop 05/01/17 at 07:32 ; Status DC Albuterol/ Ipratropium (Duoneb Neb) 1 ampule Q6HR NEB NEB Last administered on 05/04/17 07:52; Start 04/30/17 at 10:00; Stop 05/04/17 at 09:59; Status DC Cefepime HCl 2000 mg/Sodium Chloride 100 ml @ 200 mls/hr Q8H IV Last administered on 05/04/17 07:53; Start 04/30/17 at 09:00; Stop 05/04/17 at 08:22; Status DC Micafungin Sodium 100 mg/Sodium Chloride 100 ml @ 100 mls/hr Q24H IV Last administered on 05/07/17 10:29; Start 04/30/17 at 09:00; Stop 05/07/17 at 13:49; Status DC Etomidate (Amidate Inj) 20 mg STK-MED ONCE .ROUTE Last administered on 15:07; Start 04/30/17 at 14:56; Stop 04/30/17 at 14:57; Status DC Midazolam HCl (Versed Inj) 5 mg STK-MED ONCE .ROUTE Last administered on 15:06; Start 04/30/17 at 14:57; Stop 04/30/17 at 14:58; Status DC Rocuronium [place] (Zemuron Inj) 50 mg STK-MED ONCE .ROUTE Last administered on 04/30/17 15:07; Start 04/30/17 at 14:58; Stop 04/30/17 at 14:59; Status DC Etomidate (Amidate Inj) 20 mg NOW ONCE IV PUSH ; Start 04/30/17 at 15:30; Stop 04/30/17 at 15:31; Status DC Midazolam HCl (Versed Inj) 5 mg NOW ONCE IV PUSH ; Start 04/30/17 at 15:30; Stop 04/30/17 at 15:32; Status DC Rocuronium [place] (Zemuron Inj) 50 mg NOW ONCE IV PUSH ; Start 04/30/17 at 15: 45; Stop 04/30/17 at 15:46; Status DC Vancomycin HCl 1000 mg/Sodium Chloride 250 ml @ 250 mls/hr Q12H IV ; Start at 15:45; Status Cancel Pharmacy Profile Note 1,000 ml @ 30 mls/hr UNSCH OTHER ; Start 04/30/17 at 15: 45; Stop 05/04/17 at 08:22; Status DC Vancomycin HCl 1250 mg/Sodium Chloride 262.5 ml @ 250 mls/hr Q12H IV Last administered on 05/03/17 07:24; Start 04/30/17 at 18:00; Stop 05/03/17 at 15:39; Status DC Miscellaneous Information SPECIFIC LAB TO BE DRAWN:VANCOMYCIN TROUGH DATE TO... ONCE ONCE .XX ; Start 05/02/17 at 05:45; Stop 05/02/17 at 05:46; Status DC Sodium Chloride 1,000 ml @ 84 mls/hr [id number] IV Last administered on 05/02/17 09:24; Start 05/01/17 at 07:30; Stop 05/02/17 at 11:49; Status DC Insulin Detemir (Levemir Inj) 20 units Q12H SQ Last administered on 05/02/17 09 :23; Start 05/01/17 at 09:00; Stop 05/02/17 at 12:07; Status DC Enoxaparin Sodium (Lovenox Inj) 40 mg Q24H SQ Last administered on 07/14/17 07:47; Start 05/01/17 at 08:00; Stop 07/14/17 at 12:05; Status DC Lactated Ringer's 1,000 ml @ 75 mls/hr [id number] IV Last administered on 05:57; Start 05/02/17 at 13:00; Stop 05/07/17 at 16:50; Status DC Insulin Detemir (Levemir Inj) 25 units Q12H SQ Last administered on 05/04/17 07 :50; Start 05/02/17 at 21:00; Stop 05/05/17 at 09:20; Status DC Vancomycin HCl 1250 mg/Sodium Chloride 262.5 ml @ 262.5 mls/ hr Q24H IV Last administered on 05/04/17 05:21; Start 05/04/17 at 06:00; Stop 05/04/17 at 08:22; Status DC Miscellaneous Information SPECIFIC LAB TO BE ROLF... ONCE ONCE .XX ; Start at 05:45; Stop 05/06/17 at 05:45; Status DC Levofloxacin/ Dextrose 150 ml @ 100 mls/hr Q24H IV Last administered on 10:00; Start 05/04/17 at 09:00; Stop 05/13/17 at 16:14; Status DC Furosemide (Lasix Inj) 10 mg BID@09,18 IV PUSH Last administered on 05/05/17 09 :05; Start 05/04/17 at 18:00; Stop 05/05/17 at 09:01; Status DC Albuterol/ Ipratropium (Duoneb Neb) 1 ampule Q6HR ALT NEB NEB Last administered on 05/05/17 04:30; Start 05/05/17 at 01:00; Stop 05/05/17 at 04:38; Status DC Albuterol/ Ipratropium (Duoneb Neb) 1 ampule Q6HR NEB NEB Last administered on 05/08/17 09:56; Start 05/05/17 at 10:00; Stop 05/08/17 at 10:15; Status DC Insulin Detemir (Levemir Inj) 10 units Q12H SQ Last administered on 05/07/17 10 :43; Start 05/05/17 at 21:00; Stop 05/07/17 at 13:54; Status DC Lactulose (Lactulose Liq) 30 ml DAILY PO Last administered on 05/07/17 10:29; Start 05/05/17 at 09:30; Stop 05/07/17 at 12:50; Status DC Sodium Chloride 1,000 ml @ 999 mls/hr BOLUS ONCE IV Last administered on 09:08; Start 05/06/17 at 07:45; Stop 05/06/17 at 08:45; Status DC Propofol (Diprivan 200 Mg/20 ml Inj) 200 mg STK-MED ONCE IV ; Start 04/21/17 at 12:12; Stop 05/06/17 at 12:13; Status DC Ephedrine Sulfate (ePHEDrine/NS 25 MG/5 ML SYR) 25 mg STK-MED ONCE IV ; Start at 12:12; Stop 05/06/17 at 12:13; Status DC Neostigmine Methylsulfate (Prostigmin Inj) 3 mg STK-MED ONCE IV ; Start at 12:12; Stop 05/06/17 at 12:13; Status DC Phenylephrine HCl (Neosynephrine/ NS 1000 Mcg/10ml Syr) 1,000 mcg STK-MED ONCE IV ; Start 04/21/17 at 12:12; Stop 05/06/17 at 12:13; Status DC Ondansetron HCl (Zofran Inj) 4 mg STK-MED ONCE IV PUSH ; Start 04/21/17 at 12:12 ; Stop 05/06/17 at 12:13; Status DC Albumin Human (Albumin 5% Inj) 25 gm NOW ONCE IV Last administered on 21:11; Start 05/06/17 at 20:45; Stop 05/06/17 at 20:46; Status DC Albuterol Sulfate (Albuterol Neb) 2.5 mg Q2HR NEB PRN NEB DYSPNEA; Start at 12:30; Stop 05/07/17 at 14:30; Status DC Bumetanide (Bumex Inj) 1 mg ONCE ONCE IV PUSH Last administered on 05/07/17 15 :07; Start 05/07/17 at 15:00; Stop 05/07/17 at 15:01; Status DC Metolazone (Zaroxolyn) 2.5 mg ONCE ONCE PO Last administered on 05/07/17 16:36 ; Start 05/07/17 at 15:30; Stop 05/07/17 at 15:31; Status DC Potassium Chloride (KCl Powder) 20 meq ONCE ONCE PO Last administered on 15:00; Start 05/07/17 at 15:00; Stop 05/07/17 at 15:01; Status DC Docusate Sodium (Colace Liq) 100 mg Q12HR PO Last administered on 07/22/17 21 :52; Start 05/07/17 at 21:00; Stop 07/26/17 at 16:13; Status DC Sennosides (Senna Liq) 8.8 mg BID OG-TUBE Last administered on 05/17/17 09:11 ; Start 05/07/17 at 21:00; Stop 05/19/17 at 08:05; Status DC Lactulose (Lactulose Liq) 30 ml QID PO Last administered on 05/16/17 20:56; Start 05/07/17 at 18:00; Stop 05/19/17 at 08:05; Status DC Polyethylene Glycol (Miralax) 17 gm BID OG-TUBE Last administered on 05/16/17 20:56; Start 05/07/17 at 21:00; Stop 05/19/17 at 08:05; Status DC Mineral Oil (Fleet Mineral Oil Enema) 118 ml ONCE ONCE RECTAL ; Start 05/07/17 at 13:00; Stop 05/07/17 at 14:37; Status DC Mineral Oil (Mineral Oil Liq) 30 ml ONCE ONCE PO Last administered on 16:36; Start 05/07/17 at 16:00; Stop 05/07/17 at 16:02; Status DC Methylnaltrexone [place] (Relistor Inj) 12 mg ONCE ONCE SQ Last administered on 05/07/17 16:37; Start 05/07/17 at 15:00; Stop 05/07/17 at 15:01; Status DC Albuterol Sulfate (Albuterol Neb) 2.5 mg Q2HR NEB PRN NEB DYSPNEA Last administered on 07/06/17 23:51; Start 05/07/17 at 13:00; Stop 07/16/17 at 16:36 ; Status DC Lansoprazole (Prevacid Odt) 30 mg DAILY NG Last administered on 11/30/17at 08:44 ; Start 05/08/17 at 09:00 Iohexol (Omnipaque 350 Inj) 60 ml STK-MED ONCE IVCONTRAST Last administered on 05/07/17 13:35; Start 05/07/17 at 13:35; Stop 05/07/17 at 13:36; Status DC Insulin Detemir (Levemir Inj) 15 units Q12H SQ Last administered on 05/10/17 20 :49; Start 05/07/17 at 21:00; Stop 05/11/17 at 09:21; Status DC Fentanyl Citrate (fentaNYL INJ) 100 mcg STK-MED ONCE .ROUTE ; Start 05/07/17 at 14:17; Stop 05/07/17 at 14:18; Status DC Midazolam HCl (Versed Inj) 5 mg STK-MED ONCE .ROUTE ; Start 05/07/17 at 14:18; Stop 05/07/17 at 14:19; Status DC Mineral Oil (Fleet Mineral Oil Enema) 118 ml ONCE ONCE RECTAL Last administered on 05/07/17 16:35; Start 05/07/17 at 16:00; Stop 05/07/17 at 16:02; Status DC Fentanyl Citrate (fentaNYL INJ) 50 mcg NOW ONCE IV Last administered on 17:21; Start 05/07/17 at 17:15; Stop 05/07/17 at 17:20; Status DC Midazolam HCl (Versed Inj) 1 mg NOW ONCE IV Last administered on 05/07/17 17: 15; Start 05/07/17 at 17:15; Stop 05/07/17 at 17:20; Status DC Potassium Chloride (KCl Powder) 80 meq ONCE ONCE PO Last administered on 10:29; Start 05/08/17 at 10:00; Stop 05/08/17 at 10:01; Status DC Potassium Chloride 100 ml @ 100 mls/hr Q1H IV Last administered on 05/08/17 15 :24; Start 05/08/17 at 10:00; Stop 05/08/17 at 12:59; Status DC Potassium Phos/ Sodium Phos (K-Phos Neutral) 1,000 mg ONCE ONCE PO Last administered on 05/08/17 10:46; Start 05/08/17 at 10:00; Stop 05/08/17 at 10:01; Status DC Bumetanide (Bumex Inj) 1 mg ONCE ONCE IV PUSH Last administered on 05/08/17 10 :28; Start 05/08/17 at 10:00; Stop 05/08/17 at 10:01; Status DC Albuterol/ Ipratropium (Duoneb Neb) 1 ampule Q6HR NEB NEB Last administered on 05/12/17 15:53; Start 05/08/17 at 16:00; Stop 05/12/17 at 15:59; Status DC Furosemide (Lasix Inj) 20 mg BID@09,18 IV PUSH Last administered on 05/10/17 18 :00; Start 05/10/17 at 10:00; Stop 05/11/17 at 06:15; Status DC Furosemide (Lasix Inj) 40 mg BID@0900,1800 IV PUSH Last administered on 17:53; Start 05/11/17 at 09:00; Stop 05/18/17 at 08:06; Status DC Acetazolamide Sodium (Diamox Inj) 500 mg DAILY IV PUSH Last administered on 08:54; Start 05/11/17 at 09:30; Stop 05/12/17 at 23:00; Status DC Insulin Detemir (Levemir Inj) 5 units Q12H SQ Last administered on 05/17/17 09 :12; Start 05/11/17 at 21:00; Stop 05/18/17 at 08:06; Status DC Protein (Beneprotein Powder) 1 pack TID G-TUBE Last administered on 10/03/17at 09 :00; Start 05/12/17 at 13:00; Stop 10/03/17 at 11:56; Status DC Acetazolamide Sodium (Diamox Inj) 500 mg ONCE ONCE IV PUSH Last administered on 05/13/17 22:40; Start 05/13/17 at 22:00; Stop 05/13/17 at 22:01; Status DC Cisatracurium Besylate (Nimbex Inj) 12 mg ONCE ONCE IV PUSH Last administered on 05/15/17 15:15; Start 05/14/17 at 17:45; Stop 05/14/17 at 17:49; Status DC Fentanyl Citrate (fentaNYL INJ) 100 mcg VARIOUS EXCEPTIONALITIES TEACHER IV PUSH Last administered on 15:15; Start 05/14/17 at 17:45; Stop 05/15/17 at 17:44; Status DC Midazolam HCl (Versed Inj) 2 mg VARIOUS EXCEPTIONALITIES TEACHER IV PUSH Last administered on 15:15; Start 05/14/17 at 17:45; Stop 05/15/17 at 17:44; Status DC Cisatracurium Besylate (Nimbex Inj) 12 mg VARIOUS EXCEPTIONALITIES TEACHER IV PUSH ; Start 05/14/17 at 18:00; Stop 05/15/17 at 17:59; Status DC Cefazolin Sodium 1000 mg/Sodium Chloride 100 ml @ 200 mls/hr VARIOUS EXCEPTIONALITIES TEACHER IV Last administered on 05/16/17 12:35; Start 05/15/17 at 17:15; Stop 05/18/17 at 17:14 ; Status DC Propofol (Diprivan 200 Mg/20 ml Inj) 210 mg STK-MED ONCE IV ; Start 05/16/17 at 13:30; Stop 05/16/17 at 18:25; Status DC Sodium Chloride 1,000 ml @ 75 mls/hr [id number] IV Last administered on 12:42; Start 05/17/17 at 11:45; Stop 05/19/17 at 07:55; Status DC Furosemide (Lasix Inj) 40 mg DAILY IV PUSH Last administered on 05/18/17 08:29 ; Start 05/18/17 at 09:00; Stop 05/19/17 at 07:55; Status DC Furosemide (Lasix Liq) 40 mg DAILY NG Last administered on 06/18/17 11:02; Start 05/19/17 at 09:00; Stop 06/19/17 at 06:54; Status DC Dextrose (D50w (Vial) Inj) 25 ml UNSCH PRN IV PUSH HYPOGLYCEMIA-SEE COMMENTS; Start 05/19/17 at 08:00; Stop 05/20/17 at 20:59; Status DC Insulin Human Regular (NovoLIN R SUPPLEMENTAL SCALE) 1 Q4HR SQ Last administered on 05/21/17 12:00; Start 05/19/17 at 08:00; Stop 05/21/17 at 13:15 ; Status DC Insulin Detemir (Levemir Inj) 8 units DAILY SQ Last administered on 05/20/17 09:00; Start 05/19/17 at 09:00; Stop 05/21/17 at 13:15; Status DC Dextrose (D50w (Syr) Inj) 25 ml UNSCH PRN IV PUSH HYPOGLYCEMIA-SEE COMMENTS Last administered on 05/20/17 21:14; Start 05/20/17 at 21:00; Stop 05/21/17 at 13:34; Status DC Insulin Detemir (Levemir Inj) 7 units Q12H SQ Last administered on 05/22/17 09 :00; Start 05/21/17 at 21:00; Stop 05/22/17 at 17:19; Status DC Dextrose (D50w (Vial) Inj) 50 ml UNSCH PRN IV PUSH HYPOGLYCEMIA-SEE COMMENTS; Start 05/21/17 at 13:15; Stop 05/22/17 at 17:06; Status DC Glucagon (Glucagon Inj) 1 mg UNSCH PRN OTHER HYPOGLYCEMIA-SEE COMMENTS; Start 05/21/17 at 13:15; Stop 10/08/17 at 11:08; Status DC Insulin Aspart (NovoLOG SUPPLEMENTAL SCALE) 1 ACHS SLIDING SCALE SQ Last administered on 06/11/17 11:56; Start 05/21/17 at 17:00; Stop 06/12/17 at 07: 10; Status DC Dextrose (D50w (Syr) Inj) 50 ml UNSCH PRN IV PUSH HYPOGLYCEMIA-SEE COMMENTS Last administered on 10/04/17 01:57; Start 05/22/17 at 17:15; Stop 10/08/17 at 11 :08; Status DC Insulin Detemir (Levemir Inj) 5 units Q12H SQ Last administered on 05/27/17 21 :22; Start 05/22/17 at 21:00; Stop 05/28/17 at 09:50; Status DC Enalaprilat (Vasotec Inj) 1.25 mg Q6H PRN IV PUSH SBP> OR = 180, DBP> OR = 100 Last administered on 05/31/17 05:28; Start 05/24/17 at 22:45; Stop 05/31/17 at 07:41; Status DC Water (Free Water) VOLUME: 300 ML Q6HR G-TUBE Last administered on 06/10/17 06:00; Start 05/25/17 at 14:15; Stop 06/10/17 at 11:23; Status DC Acetazolamide Sodium (Diamox Inj) 500 mg ONCE ONCE IV PUSH Last administered on 05/26/17 08:54; Start 05/26/17 at 09:00; Stop 05/26/17 at 09:01; Status DC Ceftriaxone Sodium 1000 mg/ Sodium Chloride 100 ml @ 200 mls/hr Q24H IV Last administered on 05/27/17 08:32; Start 05/26/17 at 09:00; Stop 05/27/17 at 15:41 ; Status DC Cefepime HCl 1000 mg/Sodium Chloride 100 ml @ 200 mls/hr Q12H IV Last administered on 06/03/17 05:32; Start 05/27/17 at 16:00; Stop 06/03/17 at 09:12 ; Status DC Sodium Chloride 250 ml @ 15 mls/hr ONCE ONCE IV Last administered on 09:45; Start 05/28/17 at 09:45; Stop 05/29/17 at 02:24; Status DC Acetaminophen (Tylenol) 650 mg Q4H PRN PO SEE LABEL COMMENTS; Start 05/28/17 at 10:00; Stop 06/10/17 at 11:23; Status DC Diphenhydramine HCl (Benadryl) 25 mg Q4H PRN PO SEE LABEL COMMENTS; Start 05/28 at 10:00; Stop 06/02/17 at 07:40; Status DC Furosemide (Lasix Inj) 20 mg ONCE ONCE IV PUSH ; Start 05/28/17 at 10:00; Stop 05/28/17 at 10:01; Status DC Insulin Detemir (Levemir Inj) 7 units Q12H SQ Last administered on 06/20/17 21:12; Start 05/28/17 at 21:00; Stop 06/21/17 at 07:27; Status DC Artificial Tears (Tears Naturale Opth Soln) 1 drop Q4H PRN EACH EYE DRY EYE; Start 05/29/17 at 21:15; Stop 06/12/17 at 07:10; Status DC Hydralazine HCl (Apresoline Inj) 20 mg Q4H PRN IV PUSH SBP >160 Last administered on 06/21/17 04:06; Start 05/31/17 at 07:45; Stop 06/21/17 at 07: 23; Status DC Lisinopril (Prinivil) 10 mg Q12HR PO Last administered on 06/20/17 21:12; Start 05/31/17 at 09:00; Stop 06/21/17 at 07:23; Status DC Artificial Tears (Tears Naturale Opth Soln) 1 drop Q8HR EACH EYE Last administered on 11/30/17at 08:45; Start 06/12/17 at 07:15 Insulin Aspart (NovoLOG SUPPLEMENTAL SCALE) 1 Q6HR SQ Last administered on 18:00; Start 06/12/17 at 12:00; Stop 07/16/17 at 16:36; Status DC Sodium Chloride (Sodium Chloride) 2 gm ONCE ONCE PEG Last administered on 09:41; Start 06/12/17 at 07:00; Stop 06/12/17 at 07:12; Status DC Albuterol/ Ipratropium (Duoneb Neb) 1 ampule Q6HR NEB NEB Last administered on 06/16/17 03:46; Start 06/12/17 at 10:00; Stop 06/16/17 at 07:10; Status DC Insulin Aspart (NovoLOG INJ) 10 units ONCE ONCE SQ Last administered on 10:00; Start 06/12/17 at 10:00; Stop 06/12/17 at 10:32; Status DC Erythromycin Ethylsuccinate (Ees) 250 mg Q8HR PO ; Start 06/16/17 at 02:00; Stop 06/16/17 at 02:00; Status DC Methylnaltrexone [place] (Relistor Inj) 12 mg ONCE ONCE SQ Last administered on 06/16/17 01:40; Start 06/16/17 at 02:00; Stop 06/16/17 at 02:01; Status DC Erythromycin (Erythromycin Ec) 250 mg Q8HR PO Last administered on 06/18/17 12:27; Start 06/16/17 at 02:00; Stop 06/18/17 at 22:53; Status DC Albuterol/ Ipratropium (Duoneb Neb) 1 ampule Q6HR NEB NEB Last administered on 06/20/17 08:04; Start 06/16/17 at 10:00; Stop 06/20/17 at 09:24; Status DC Erythromycin Ethylsuccinate (Ees 400 Mg/5 ml Liq) 250 mg Q8H PO Last administered on 06/19/17 01:19; Start 06/19/17 at 00:00; Stop 06/19/17 at 06 :54; Status DC Polyethylene Glycol (Miralax) 17 gm DAILY PO ; Start 06/19/17 at 09:00; Stop 06/23/17 at 06:47; Status DC Albuterol/ Ipratropium (Duoneb Neb) 1 ampule Q6HR NEB NEB Last administered on 06/24/17 08:30; Start 06/20/17 at 10:00; Stop 06/24/17 at 09:59; Status DC Hydralazine HCl (Apresoline Inj) 10 mg Q1H PRN IV PUSH SBP >160 Last administered on 07/10/17 13:51; Start 06/21/17 at 07:30; Stop 07/12/17 at 00: 26; Status DC Lisinopril (Prinivil) 20 mg Q12HR PO Last administered on 08/22/17 21:16; Start 06/21/17 at 09:00; Stop 08/23/17 at 07:26; Status DC Labetalol HCl (Trandate Inj) 10 mg Q1H PRN IV PUSH SBP>160, DBP>90, HR>65 Last administered on 07/08/17 05:02; Start 06/21/17 at 07:30; Stop 07/12/17 at 00: 26; Status DC Nitroglycerin (Nitroglycerin 2% Oint) 2 inch Q6H PRN TOPICAL SBP>160, DBP>90 Last administered on 06/30/17 14:37; Start 06/21/17 at 08:00 Piperacillin Sod/ Tazobactam Sod 100 ml @ 200 mls/hr Q6H IV Last administered on 06/29/17 02:07; Start 06/21/17 at 09:00; Stop 06/29/17 at 08:59; Status DC Pharmacy Profile Note 0 ml @ 0 mls/hr UNSCH OTHER ; Start 06/21/17 at 07:30; Stop 06/23/17 at 06:46; Status DC Guaifenesin (Robitussin Liq) 400 mg Q8HR PEG Last administered on 06/29/17 06 :02; Start 06/21/17 at 14:00; Stop 06/29/17 at 13:59; Status DC Sodium Chloride (Sodium Chloride 3% Neb) 2 ml Q6HR NEB NEB Last administered on 06/29/17 08:21; Start 06/21/17 at 10:00; Stop 06/29/17 at 09:59; Status DC Insulin Detemir (Levemir Inj) 10 units Q12H SQ Last administered on 07/19/17 08:39; Start 06/21/17 at 09:00; Stop 07/19/17 at 09:26; Status DC Vancomycin HCl 1000 mg/Sodium Chloride 250 ml @ 250 mls/hr ONCE ONCE IV Last administered on 06/21/17 11:50; Start 06/21/17 at 12:00; Stop 06/21/17 at 12 :59; Status DC Vancomycin HCl 750 mg/Sodium Chloride 257.5 ml @ 250 mls/hr Q12H IV Last administered on 06/23/17 00:02; Start 06/22/17 at 00:00; Stop 06/23/17 at 06 :46; Status DC Miscellaneous Information SPECIFIC LAB TO BE ROLF..Stephanie ONCE ONCE .XX ; Start at 23:45; Stop 06/22/17 at 23:46; Status DC Miscellaneous Information SPECIFIC LAB TO BE .Stephanie ONCE ONCE .XX ; Start at 11:45; Stop 06/23/17 at 11:46; Status DC Polyethylene Glycol (Miralax) 17 gm BID PEG Last administered on 07/02/17 08: 35; Start 06/23/17 at 09:00; Stop 07/09/17 at 08:04; Status DC Albuterol/ Ipratropium (Duoneb Neb) 1 ampule Q6HR NEB NEB Last administered on 07/08/17 10:22; Start 07/04/17 at 10:00; Stop 07/08/17 at 09:59; Status DC Polyethylene Glycol (Miralax) 17 gm DAILY PEG Last administered on 10/02/17at 07: 59; Start 07/09/17 at 09:00; Stop 10/03/17 at 11:56; Status DC Clonidine (Catapres) 0.1 mg Q6H PRN PO SBP >160 Last administered on 16:22; Start 07/12/17 at 00:30; Stop 10/03/17 at 11:55; Status DC Heparin Sodium (Porcine) (Heparin Inj) 5,000 units Q8HR SQ Last administered on 11/30/17 06:18; Start 07/15/17 at 08:00 Sodium Chloride 1,000 ml @ 42 mls/hr [id number] IV Last administered on 15:15; Start 07/14/17 at 14:45; Stop 07/15/17 at 08:00; Status DC Albuterol/ Ipratropium (Duoneb Neb) 2.5 ampule Q6HR NEB NEB ; Start 07/16/17 at 16:45; Stop 07/16/17 at 19:01; Status DC Hyoscyamine Sulfate (Levsin Liq) 0.125 mg BID PEG ; Start 07/16/17 at 21:00; Stop 07/16/17 at 21:00; Status DC Albuterol Sulfate (Albuterol Neb) 2.5 mg Q6HR NEB INH Last administered on 19:49; Start 07/16/17 at 22:00; Stop 07/20/17 at 21:59; Status DC Acetylcysteine (Mucomyst 20% Neb) 2 ml Q8HR NEB PRN NEB SECRETIONS; Start at 08:00; Stop 07/17/17 at 08:00; Status DC Acetylcysteine (Mucomyst 20% Neb) 2 ml Q8HR NEB PRN NEB SECRETIONS Last administered on 07/21/17 03:31; Start 07/17/17 at 08:00; Stop 07/21/17 at 07 :59; Status DC Trimethoprim/ Sulfamethoxazole (Bactrim 800-160 Mg/20 ml Liq) 20 ml Q12H PO ; Start 07/17/17 at 09:45; Stop 07/17/17 at 09:50; Status DC Trimethoprim/ Sulfamethoxazole (Bactrim 800-160 Mg/20 ml Liq) 20 ml Q12HR PEG Last administered on 07/19/17 21:27; Start 07/17/17 at 11:00; Stop 07/19/17 at 21:01; Status DC Insulin Detemir (Levemir Inj) 15 units Q12H SQ Last administered on 07/20/17 08:00; Start 07/19/17 at 21:00; Stop 07/20/17 at 08:26; Status DC Insulin Detemir (Levemir Inj) 18 units Q12H SQ Last administered on 07/22/17 13:46; Start 07/20/17 at 21:00; Stop 07/22/17 at 14:39; Status DC Trimethoprim/ Sulfamethoxazole (Bactrim 800-160 Mg/20 ml Liq) 20 ml Q12HR PEG Last administered on 07/21/17 08:12; Start 07/20/17 at 15:00; Stop 07/21/17 at 13:16; Status DC Albuterol/ Ipratropium (Duoneb Neb) 1 ampule ONCE ONCE NEB Last administered on 07/21/17 03:30; Start 07/21/17 at 03:30; Stop 07/21/17 at 03:31; Status DC Albuterol/ Ipratropium (Duoneb Neb) 1 ampule ONCE PRN NEB SHORTNESS OF BREATH; Start 07/21/17 at 04:15; Stop 07/21/17 at 07:30; Status DC Albuterol/ Ipratropium (Duoneb Neb) 1 ampule Q6HR NEB NEB Last administered on 07/25/17 09:05; Start 07/21/17 at 10:00; Stop 07/25/17 at 09:59; Status DC Acetylcysteine (Mucomyst 20% Neb) 2 ml Q8HR NEB PRN NEB SECRETIONS; Start at 07:00; Stop 07/21/17 at 07:24; Status DC Piperacillin Sod/ Tazobactam Sod 100 ml @ 200 mls/hr Q6H IV Last administered on 07/25/17 04:56; Start 07/21/17 at 10:00; Stop 07/25/17 at 07:50; Status DC Azithromycin 500 mg/Sodium Chloride 250 ml @ 250 mls/hr Q24H IV Last administered on 07/25/17 10:58; Start 07/21/17 at 11:00; Stop 07/25/17 at 13 :36; Status DC Insulin Aspart (NovoLOG SUPPLEMENTAL SCALE) 1 Q6HR SQ Last administered on at 06:47; Start 07/21/17 at 18:00; Stop 10/08/17 at 09:45; Status DC Insulin Detemir (Levemir Inj) 15 units Q12H SQ Last administered on 07/26/17 23:10; Start 07/22/17 at 21:00; Stop 07/27/17 at 09:00; Status DC Ceftolozane/ Tazobactam 1500 mg/Sodium Chloride 100 ml @ 100 mls/hr Q8H IV Last administered on 08/06/17 08:25; Start 07/25/17 at 09:00; Stop 08/06/17 at 12:58; Status DC Fluconazole/ Sodium Chloride 100 ml @ 100 mls/hr ONCE ONCE IV Last administered on 07/26/17 17:00; Start 07/26/17 at 17:00; Stop 07/26/17 at 17 :59; Status DC Insulin Detemir (Levemir Inj) 7 units Q12HR SQ Last administered on 09/14/17 07:32; Start 07/27/17 at 09:00; Stop 09/14/17 at 15:42; Status DC Furosemide (Lasix Liq) 40 mg ONCE ONCE NG Last administered on 07/29/17 17: 29; Start 07/29/17 at 16:00; Stop 07/29/17 at 16:02; Status DC Lactated Ringer's 1,000 ml @ 30 mls/hr Q24H PRN IV SEE LABEL COMMENTS; Start 08/03/17 at 06:30; Stop 08/06/17 at 06:29; Status DC Lidocaine/ Epinephrine (Xylocaine-Epi 1%-1:100,000 Inj) 20 ml STK-MED ONCE .ROUTE Last administered on 08/05/17 17:58; Start 08/05/17 at 17:58; Stop 08/05/17 at 17:59; Status DC Colistin Sulfate (Coly-Mycin M Neb) 75 mg Q8HR NEB NEB Last administered on 08:25; Start 08/06/17 at 16:00; Stop 08/12/17 at 15:59; Status DC Furosemide (Lasix Liq) 40 mg ONCE ONCE NG Last administered on 08/08/17 12: 54; Start 08/08/17 at 12:15; Stop 08/08/17 at 12:16; Status DC Albuterol/ Ipratropium (Duoneb Neb) 1 ampule Q6HR NEB PRN NEB WHEEZING Last administered on 10/16/17 07:17; Start 08/10/17 at 14:00; Stop 10/25/17 at 08: 28; Status DC Lisinopril (Prinivil) 30 mg Q12HR PO Last administered on 08/24/17 21:00; Start 08/23/17 at 09:00; Stop 08/25/17 at 07:46; Status DC Lisinopril (Prinivil) 40 mg Q12HR PO Last administered on 09/15/17 20:54; Start 08/25/17 at 09:00; Stop 09/15/17 at 22:16; Status DC Amlodipine Besylate (Norvasc) 5 mg DAILY PO Last administered on 09/01/17 09:24 ; Start 08/31/17 at 09:00; Stop 09/02/17 at 06:48; Status DC Amlodipine Besylate (Norvasc) 10 mg DAILY PO Last administered on 10/02/17at 08: 00; Start 09/02/17 at 09:00; Stop 10/03/17 at 11:55; Status DC Metoprolol Tartrate (Lopressor) 12.5 mg Q12HR PO Last administered on 09/06/17at 08:46; Start 09/05/17 at 21:00; Stop 10/03/17 at 11:55; Status DC Miscellaneous (Pill Splitter) 1 ea UNSCH PRN OTHER SEE LABEL COMMENTS; Start at 11:00 Trimethoprim/ Sulfamethoxazole (Bactrim 800-160 Mg/20 ml Liq) 20 ml Q12H PEG ; Start 09/09/17 at 20:00; Stop 09/09/17 at 20:00; Status DC Trimethoprim/ Sulfamethoxazole (Bactrim Ds 800-160 Mg) 1 tab Q12HR PEG Last administered on 09/29/17at 09:36; Start 09/09/17 at 21:00; Stop 09/29/17 at 22:01 ; Status DC Insulin Detemir (Levemir Inj) 12 units Q12HR SQ Last administered on 09/20/17at 20:49; Start 09/14/17 at 21:00; Stop 09/21/17 at 08:28; Status DC Lisinopril (Prinivil) 40 mg DAILY PO Last administered on 09/19/17at 09:39; Start 09/16/17 at 09:00; Stop 09/20/17 at 17:11; Status DC Sodium Polystyrene Sulfonate (Kayexalate Liq) 15 gm ONCE ONCE PO Last administered on 09/16/17at 11:01; Start 09/16/17 at 10:45; Stop 09/16/17 at 10:46 ; Status DC Acetaminophen (Tylenol) 500 mg Q6H PRN PEG Fever > 100.0F Last administered on 09/16/17at 16:36; Start 09/16/17 at 16:15; Stop 10/26/17 at 06:36; Status DC Dextrose 1,000 ml @ 75 mls/hr [id number] IV Last administered on 09/20/17at 11:09 ; Start 09/18/17 at 15:30; Stop 09/20/17 at 17:11; Status DC Lisinopril (Prinivil) 20 mg DAILY PO ; Start 09/21/17 at 09:00; Stop 09/21/17 at 23:55; Status DC Metoclopramide HCl (Reglan Inj) 10 mg ONCE ONCE IV PUSH Last administered on at 03:37; Start 09/21/17 at 03:15; Stop 09/21/17 at 03:16; Status DC Insulin Detemir (Levemir Inj) 12 units HS SQ Last administered on 09/26/17at 21: 00; Start 09/21/17 at 21:00; Stop 09/27/17 at 17:31; Status DC Calcium Gluconate 1 gm/Dextrose 110 ml @ 110 mls/hr ONCE ONCE IV Last administered on 09/21/17at 11:43; Start 09/21/17 at 11:15; Stop 09/21/17 at 12:14 ; Status DC Sodium Polystyrene Sulfonate (Kayexalate Liq) 15 gm QID PEG Last administered on 09/22/17at 09:30; Start 09/21/17 at 13:00; Stop 09/22/17 at 09:02; Status DC Insulin Human Regular (NovoLIN R INJ) 10 units ONCE ONCE IV PUSH Last administered on 09/21/17at 11:42; Start 09/21/17 at 11:30; Stop 09/21/17 at 11:31 ; Status DC Dextrose (D50w (Vial) Inj) 50 ml ONCE ONCE IV PUSH Last administered on at 11:42; Start 09/21/17 at 11:30; Stop 09/21/17 at 11:31; Status DC Albuterol Sulfate (Albuterol Concentrated Neb) 10 mg ONCE ONCE INH Last administered on 09/21/17at 11:30; Start 09/21/17 at 11:30; Stop 09/21/17 at 11:31 ; Status DC Sodium Chloride 500 ml @ 100 mls/hr Q5H IV Last administered on 09/21/17at 13: 38; Start 09/21/17 at 13:00; Stop 09/21/17 at 17:59; Status DC Sodium Chloride 1,000 ml @ 42 mls/hr [id number] IV Last administered on at 08:34; Start 09/21/17 at 21:00; Stop 09/24/17 at 08:24; Status DC Hydralazine HCl (Apresoline) 10 mg Q8HR PEG Last administered on 11/30/17at 06:18 ; Start 09/24/17 at 14:00 Hydralazine HCl (Apresoline) 10 mg ONCE ONCE PEG Last administered on at 11:49; Start 09/24/17 at 09:00; Stop 09/24/17 at 09:01; Status DC Cefepime HCl 2000 mg/Sodium Chloride 100 ml @ 200 mls/hr Q8H IV Last administered on 09/29/17at 05:35; Start 09/25/17 at 12:00; Stop 09/29/17 at 08:46 ; Status DC Sodium Polystyrene Sulfonate (Kayexalate Liq) 15 gm ONCE ONCE RECTAL Last administered on 09/26/17at 10:51; Start 09/26/17 at 09:15; Stop 09/26/17 at 09:16 ; Status DC Sodium Polystyrene Sulfonate (Kayexalate Liq) 15 gm ONCE ONCE PEG Last administered on 09/27/17at 18:11; Start 09/27/17 at 17:15; Stop 09/27/17 at 17:16 ; Status DC Insulin Detemir (Levemir Inj) 10 units BID SQ Last administered on 09/29/17at 09 :37; Start 09/27/17 at 21:00; Stop 09/29/17 at 15:14; Status DC Doxazosin Mesylate (Cardura) 1 mg DAILY PO Last administered on 10/02/17at 07:59 ; Start 09/28/17 at 10:00; Stop 10/03/17 at 11:55; Status DC Ceftolozane/ Tazobactam 1500 mg/Sodium Chloride 100 ml @ 100 mls/hr Q8H IV Last administered on 09/30/17at 01:51; Start 09/29/17 at 10:00; Stop 09/30/17 at 10:38; Status DC Lactobacillus Acidophilus (Lactinex) 1 tab Q12HR PO Last administered on at 09:08; Start 09/29/17 at 21:00; Stop 10/03/17 at 11:55; Status DC Insulin Human NPH (NovoLIN N INJ) 7 units TID SQ Last administered on at 18:16; Start 09/29/17 at 18:00; Stop 10/01/17 at 19:07; Status DC Acetylcysteine (Mucomyst 10% Neb) 2 ml Q6HR NEB NEB ; Start 09/29/17 at 16:00; Stop 09/29/17 at 16:21; Status DC Acetylcysteine (Mucomyst 10% Neb) 2 ml Q6HR NEB NEB Last administered on at 08:30; Start 09/29/17 at 14:30; Stop 10/03/17 at 14:29; Status DC Metoclopramide HCl (Reglan Inj) 10 mg ONCE ONCE IV PUSH Last administered on at 22:11; Start 09/29/17 at 21:30; Stop 09/29/17 at 21:31; Status DC Trimethoprim/ Sulfamethoxazole (Bactrim 800-160 Mg/20 ml Liq) 20 ml BID PEG Last administered on 10/03/17at 09:08; Start 09/29/17 at 22:02; Stop 10/03/17 at 18 :48; Status DC Colistin Sulfate (Coly-Mycin M Neb) 75 mg Q8HR NEB NEB Last administered on at 07:29; Start 09/30/17 at 16:00; Stop 10/21/17 at 15:59; Status DC Insulin Human NPH (NovoLIN N INJ) 10 units TID SQ Last administered on at 18:43; Start 10/02/17 at 09:00; Stop 10/07/17 at 12:30; Status DC Sodium Polystyrene Sulfonate (Kayexalate Liq) 15 gm BID PO Last administered on 10/03/17at 10:09; Start 10/03/17 at 09:00; Stop 10/03/17 at 11:55; Status DC Sodium Chloride 1,000 ml @ 100 mls/hr Q10H IV Last administered on 10/03/17at 20 :26; Start 10/03/17 at 08:30; Stop 10/03/17 at 22:36; Status DC Levofloxacin/ Dextrose 100 ml @ 100 mls/hr Q24H IV Last administered on 11:46; Start 10/03/17 at 10:00; Stop 10/03/17 at 20:03; Status DC Amlodipine Besylate (Norvasc) 10 mg DAILY PEG Last administered on 11/30/17 08: 44; Start 10/04/17 at 09:00 Calcium/Vitamin D (Oscal-D 250-125) 250 mg TID PEG Last administered on 08:44; Start 10/03/17 at 13:00 Cholecalciferol (Vitamin D3) 5,000 units DAILY PEG Last administered on 08:44; Start 10/04/17 at 09:00 Clonidine (Catapres) 0.1 mg Q6H PRN PEG SBP >160 Last administered on at 00:23; Start 10/03/17 at 12:30 Doxazosin Mesylate (Cardura) 1 mg DAILY PEG Last administered on 11/18/17at 09: 04; Start 10/04/17 at 09:00; Stop 11/22/17 at 17:42; Status DC Lactobacillus Acidophilus (Lactinex) 1 tab Q12HR PEG Last administered on 08:46; Start 10/03/17 at 21:00 Metoprolol Tartrate (Lopressor) 12.5 mg Q12HR PEG Last administered on 19:28; Start 10/03/17 at 21:00; Stop 10/26/17 at 08:47; Status DC Sodium Polystyrene Sulfonate (Kayexalate Liq) 15 gm BID PEG Last administered on 10/03/17at 21:00; Start 10/03/17 at 21:00; Stop 10/05/17 at 14:49; Status DC Polyethylene Glycol (Miralax) 17 gm DAILY PRN PEG Constipation; Start 10/03/17 at 12:00 Protein (Beneprotein Powder) 1 pack TID PRN G-TUBE Constipation; Start 10/03/17 at 12:00 Albuterol Sulfate (Albuterol Neb) 2.5 mg Q2HR NEB PRN NEB WHEEZING Last administered on 10/19/17at 22:09; Start 10/03/17 at 21:45 Dextrose 1,000 ml @ 30 mls/hr Q24H IV ; Start 10/03/17 at 22:45; Status Cancel Dextrose (D50w (Vial) Inj) 25 ml ONCE ONCE IV PUSH Last administered on at 22:42; Start 10/03/17 at 22:45; Stop 10/03/17 at 22:46; Status DC Furosemide (Lasix Inj) 40 mg ONCE ONCE IV PUSH Last administered on 10/03/17at 22:46; Start 10/03/17 at 22:45; Stop 10/03/17 at 22:46; Status DC Dextrose 500 ml @ 10 mls/hr Q24H IV Last administered on 10/04/17at 15:49; Start 10/03/17 at 23:00; Stop 10/05/17 at 14:49; Status DC Fentanyl Citrate (fentaNYL INJ) 100 mcg STK-MED ONCE .ROUTE ; Start 10/03/17 at 22:47; Stop 10/03/17 at 22:48; Status DC Fentanyl Citrate (fentaNYL INJ) 100 mcg NOW ONCE IV PUSH ; Start 10/03/17 at 23: 00; Stop 10/03/17 at 23:01; Status DC Fentanyl Citrate (fentaNYL INJ) 50 mcg ONCE ONCE IV PUSH Last administered on 10/03/17at 23:00; Start 10/03/17 at 23:00; Stop 10/03/17 at 23:10; Status DC Fentanyl Citrate (fentaNYL INJ) 50 mcg Q1H PRN IV PUSH SEDATION; Start 10/03/17 at 23:00; Stop 10/29/17 at 10:46; Status DC Chlorhexidine Gluconate (Peridex 0.12% Liq) 15 ml BID@08,20 MT Last administered on 10/31/17at 21:41; Start 10/04/17 at 08:00; Stop 11/01/17 at 11:43; Status DC Furosemide (Lasix Inj) 40 mg ONCE ONCE IV PUSH Last administered on 10/04/17at 05:52; Start 10/04/17 at 05:00; Stop 10/04/17 at 05:01; Status DC Furosemide (Lasix Inj) 40 mg Q6HR IV PUSH Last administered on 10/06/17at 05:28; Start 10/04/17 at 12:00; Stop 10/06/17 at 11:00; Status DC Insulin Human NPH (NovoLIN N INJ) 5 units BID@08,17 SQ Last administered on 10/10at 08:05; Start 10/07/17 at 17:00; Stop 10/10/17 at 11:33; Status DC Insulin Detemir (Levemir Inj) 7 units Q12H SQ Last administered on 10/25/17at 23 :55; Start 10/08/17 at 12:00; Stop 10/26/17 at 06:36; Status DC Dextrose (D50w (Vial) Inj) 50 ml UNSCH PRN IV PUSH HYPOGLYCEMIA-SEE COMMENTS Last administered on 10/28/17at 17:42; Start 10/08/17 at 09:45; Stop 11/04/17 at 12 :34; Status DC Glucagon (Glucagon Inj) 1 mg UNSCH PRN OTHER HYPOGLYCEMIA-SEE COMMENTS Last administered on 10/14/17at 00:45; Start 10/08/17 at 09:45; Stop 11/04/17 at 12:34; Status DC Insulin Human Regular (NovoLIN R SUPPLEMENTAL SCALE) 1 Q6HR SQ Last administered on 11/04/17at 06:00; Start 10/08/17 at 12:00; Stop 11/04/17 at 12:27; Status DC Water (Free Water) 250 ml Q8HR G-TUBE Last administered on 10/20/17at 05:20; Start 10/18/17 at 14:00; Stop 10/20/17 at 10:15; Status DC Water (Free Water) VOLUME OF WATER: ( 200 ) ML Q6HR G-TUBE Last administered on 10/27/17at 05:49; Start 10/20/17 at 12:00; Stop 10/27/17 at 10:02; Status DC Albuterol/ Ipratropium (Duoneb Neb) 1 ampule Q6HR NEB NEB Last administered on 10/29/17at 08:34; Start 10/25/17 at 10:00; Stop 10/29/17 at 09:59; Status DC Insulin Detemir (Levemir Inj) 8 units Q12H SQ Last administered on 11/30/17at 02: 42; Start 10/26/17 at 12:00 Acetaminophen (Tylenol 650 Mg/ 20 ml Liq) 650 mg Q6H PRN PEG fever; Start 10/26 at 06:45 Oxycodone HCl (Roxicodone Intensol Liq) 5 mg Q6H PRN PO pain 6-10; Start at 11:00 Iohexol (Omnipaque 350 Inj) 75 ml STK-MED ONCE IVCONTRAST Last administered on 11/01/17at 16:59; Start 11/01/17 at 16:59; Stop 11/01/17 at 17:00; Status DC Dextrose (D50w (Vial) Inj) 50 ml UNSCH PRN IV PUSH HYPOGLYCEMIA-SEE COMMENTS; Start 11/04/17 at 12:30 Glucagon (Glucagon Inj) 1 mg UNSCH PRN OTHER HYPOGLYCEMIA-SEE COMMENTS; Start 11/04/17 at 12:30 Insulin Human Regular (NovoLIN R SUPPLEMENTAL SCALE) 1 Q6H SQ Last administered on 11/30/17at 06:30; Start 11/04/17 at 12:30 Dextrose (D50w (Vial) Inj) 25 ml ONCE ONCE IV PUSH Last administered on at 12:54; Start 11/04/17 at 12:30; Stop 11/04/17 at 12:35; Status DC Metoclopramide HCl (Reglan Inj) 10 mg Q8HR IV PUSH Last administered on at 05:41; Start 11/05/17 at 22:00; Stop 11/07/17 at 13:32; Status DC Amoxicillin/ Clavulanate Potassium (Augmentin 600 Mg/5 ml Liq) 600 mg Q12H PO Last administered on 11/13/17at 23:56; Start 11/07/17 at 12:00; Stop 11/14/17 at 11:59; Status DC Metoclopramide HCl (Reglan Liq) 10 mg Q8HR PO Last administered on 11/18/17at 14:08; Start 11/07/17 at 14:30; Status Future Hold Albuterol/ Ipratropium (Duoneb Neb) 1 ampule Q6HR NEB NEB Last administered on 11/12/17at 09:08; Start 11/08/17 at 10:30; Stop 11/12/17 at 10:29; Status DC Cholestyramine Resin (Questran Light Pkt) 4 gm BID PRN PEG DIARRHEA Last administered on 11/25/17at 09:59; Start 11/12/17 at 13:30 Furosemide (Lasix Inj) 20 mg BID@09,18 IV PUSH Last administered on 11/14/17at 08:32; Start 11/13/17 at 17:00; Stop 11/14/17 at 14:49; Status DC Furosemide (Lasix Inj) 20 mg DAILY IV PUSH Last administered on 11/15/17at 09:00 ; Start 11/15/17 at 09:00; Stop 11/16/17 at 08:59; Status DC Sodium Chloride (NS Flush) 2 ml BID IV FLUSH ; Start 11/16/17 at 10:45; Status Cancel Sodium Chloride (NS Flush) 2 ml BID IV FLUSH Last administered on 11/21/17at 09: 00; Start 11/16/17 at 21:00; Stop 11/21/17 at 20:44; Status DC Albuterol Sulfate (Proventil) 2 mg ONCE ONCE PO Last administered on at 17:16; Start 11/18/17 at 15:30; Stop 11/18/17 at 15:31; Status DC Sodium Chloride 250 ml @ 250 mls/hr BOLUS ONCE IV Last administered on at 15:26; Start 11/18/17 at 14:30; Stop 11/18/17 at 15:29; Status DC Insulin Human Regular (NovoLIN R INJ) 10 units ONCE ONCE SQ Last administered on 11/18/17at 18:23; Start 11/18/17 at 18:00; Stop 11/18/17 at 18:18; Status DC Dextrose (D50w (Syr) Inj) 12.5 ml ONCE ONCE IV PUSH Last administered on at 18:22; Start 11/18/17 at 18:00; Stop 11/18/17 at 18:18; Status DC Furosemide (Lasix) 20 mg DAILY PO Last administered on 11/30/17at 08:45; Start at 09:00 Lisinopril (Prinivil) 5 mg ONCE ONCE PEG Last administered on 11/22/17at 17:56 ; Start 11/22/17 at 17:45; Stop 11/22/17 at 17:49; Status DC Lisinopril (Prinivil) 5 mg DAILY PEG Last administered on 11/30/17at 08:45; Start 11/23/17 at 09:00 Diphenoxylate HCl/ Atropine (Lomotil 2.5-0.025 Mg Liq) 5 ml Q6H PRN PO LOOSE STOOLS Last administered on 11/30/17at 08:44; Start 11/25/17 at 13:15 A/P Problem List: (1) Acute ischemic left middle cerebral artery (MCA) stroke ICD Code: I63.512 - Cerebral infarction due to unspecified occlusion or stenosis of left middle cerebral artery Status: Acute (2) Acute respiratory failure ICD Code: J96.00 - Acute respiratory failure, unspecified whether with hypoxia or hypercapnia (3) Right hemiplegia ICD Code: G81.91 - Hemiplegia, unspecified affecting right dominant side Status: Acute (4) Sacral decubitus ulcer ICD Code: L89.159 - Pressure ulcer of sacral region, unspecified stage Status: Chronic (5) HCAP (healthcare-associated pneumonia) ICD Code: J18.9 - Pneumonia, unspecified organism Status: Resolved (6) 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 She underwent ORIF on 04/21/17 and on 04/24 a stroke alert was called as she was found to have right hemiparesis with left gaze. She has a poor prognosis based on her lack of overall recovery over the last 6+ months. Patient has no acute issues, no change in care plan. Shortness of breath/desaturation secondary to pulmonary edema-chest x-ray done , personally reviewed, has evidence of pulmonary edema, continue Lasix, monitor BMP every few weeks. Urinary retention No leukocytosis U/A with large leuk esterase but many squamous cells Culture grew Aerococcus, finished Augmentin November 07 - November 14. Leavitt replaced Elevated D-dimer Ordered 10/31 for increasing FiO2 demand Since D-dimer elevated, CTA chest obtained to r/o PE which was negative Likely elevated in light of chronic illness RUE U/S negative for DVT - elevate R arm Left MCA stroke 5.5 mm of [id number] subfalcine herniation, diagnosed 04/24. Was not a candidate for thrombolysis at that time. Increasing edema seen on repeat CT 04/28 with a reduction in midline shift on another repeat on 04/30 Neurologic condition remained poor and she underwent trach 05/15/17 and PEG Persistent right-sided hemiparesis. Previously seen by neurology, signed off Previously seen by neurosurgery, signed off Continue daily ASA Patient has been attempting to pull tracheostomy out yesterday Hypertension / CHF Amlodipine 10 mg po daily, Doxazosin 1 mg peg daily, hydralazine 10 mg per per peg q8 hours. Clonidine 0.1 mg q6h prn Echo 10/06/17 LVSF EF = 25-30%. Chronic Tracheostomy /respiratory failure 10/22/2017 Pulmonary toilet, trach care Duo nebs as needed Pulm following, appreciate assistance Large left pneumothorax Resolved Chest tube placed 05/07, discontinued 05/12/17 Hepatitis C LFTs normalized Negative genotype/viral load Diabetes mellitus SSI Novolin R High-dose scale Levemir insulin 8u Q12 FEN PEG tube feeding with Glucerna 1.5 goal 45 cc/hr, per nutrition recommendations Loose Stools patient has been checked for Cdiff on multiple occasions, most recently 11/04 Cdiff negative already on lactinex bid Continue Questran, start Lomotil. Anal Fissure continue wound care DVT prophylaxis Heparin Discharge Planning Aggressive therapy, full code per palliative. Needs placement Problem Qualifiers (1) Acute respiratory failure: Qualified Codes: J96.00 - Acute respiratory failure, unspecified whether with hypoxia or hypercapnia (2) Sacral decubitus ulcer: Qualified Codes: L89.152 - Pressure ulcer of sacral region, stage 2 (3) Chronic respiratory failure: Qualified Codes: J96.11 - Chronic respiratory failure with hypoxia Ricardo Shafer DO Nov 30, 2017 11:04
[2017-12-01] VITALS (8 sets, daily range): BP systolic 112–141; BP diastolic 53–69; PULSE 44–71; RESP 14–20; TEMP 98.2–99.2; O2SAT 94–99
[2017-12-01] MEDS: INSULIN NovoLIN REGULAR SUPPLEMENTAL SCALE SQ SCH ×4 (00:22→17:30)
[2017-12-01] MEDS: INSULIN DETEMIR 100 UNITS/ML VIAL SQ SCH ×2 (00:22→12:21)
[2017-12-01] MEDS: ARTIFICIAL TEARS OPTH SOLN 15 ML BTL EACH EYE SCH ×3 (06:00→22:28)
[2017-12-01] MEDS: HEPARIN SODIUM - SQ 10,000 UNITS/ML VIAL SQ SCH ×3 (06:40→22:26)
[2017-12-01] MEDS: hydrALAZINE HCL 10 MG TAB PEG SCH ×3 (06:40→22:27)
[2017-12-01] MEDS: FUROSEMIDE 20 MG TAB PO SCH (07:52)
[2017-12-01] MEDS: LANSOPRAZOLE SOLUTAB 30 MG TAB NG SCH (07:52)
[2017-12-01] MEDS: LACTOBACILLUS ACIDOPHILUS TAB PEG SCH ×2 (07:52→20:08)
[2017-12-01] MEDS: CHOLECALCIFEROL (VIT D3) 5000 UNIT CAP PEG SCH (07:52)
[2017-12-01] MEDS: LISINOPRIL 5 MG TAB PEG SCH (07:52)
[2017-12-01] MEDS: ASPIRIN 325 MG TAB DOBHOFF SCH (07:53)
[2017-12-01] MEDS: CALCIUM/VITAMIN D 250 MG/125 U TAB PEG SCH ×3 (07:53→17:26)
--- NOTE | 2017-12-01 09:31 | HHI.PR ---
Subjective Remarks No new complaints per nursing Seen sitting in the Maddy chair Seen and examined Chart review Discussed with RN 3-31 patient has No new issues per nursing attempted to pull trach multiple times yesterday Discussed with RN Seen and examined Chart review 4-1 NO NEW ISSUES PER RN SEEN AND EXAMINED 4-2 no new issues overnight discussed with RN Seen and examined Objective Vitals Vital Signs Date Time Temp Pulse Resp B/P (MAP) Pulse Ox O2 Delivery O2 Flow Rate FiO2 12/01/17 08:32 98 T-piece 6.00 28 12/01/17 08:05 98.2 69 16 131/59 (83) 99 12/01/17 07:50 98 T-Piece 5.00 28 Humidified 12/01/17 04:00 99.2 68 14 132/65 (87) 94 12/01/17 00:00 98.7 71 16 141/69 (93) 96 11/30/17 21:50 98 T-piece 5.00 28 11/30/17 20:00 99 T-Piece 5.00 28 11/30/17 20:00 98.5 68 14 133/67 (89) 98 11/30/17 16:00 97.0 60 18 111/57 (75) 99 11/30/17 12:00 98.5 58 16 124/62 (82) 97 11/30/17 10:20 96 T-piece 5.00 28 I/O 11/30/17 11/30/17 11/30/17 12/01/17 12/01/17 12/01/17 07:00 15:00 23:00 07:00 15:00 23:00 Intake Total 1676 ml 975 ml 957 ml Output Total 500 ml 700 ml 800 ml Balance 1176 ml 275 ml 157 ml Tube Feeding 936 ml 495 ml 477 ml Other 740 ml 480 ml 480 ml Output Urine Total 500 ml 700 ml 800 ml Bladder Scan Volume Amount 1000 ml 1000 ml 1000 ml # Bowel Movements 1 1 1 Imaging Last Impressions Chest X-Ray 11/13/17 0000 Signed Impressions: Service Date/Time: October 15:36 - CONCLUSION: 1. Cardiomegaly with worsening pulmonary edema pattern. 2. Probable trace left pleural effusion. Alejo De La Vega MD Upper Extremity Ultrasound 11/04/17 0000 Signed Impressions: Service Date/Time: Saturday, November 04, 2017 09:57 - CONCLUSION: No thrombus observed. Subcutaneous edema noted. Deangelo Wren Jr., MD Abdomen X-Ray 11/04/17 0000 Signed Impressions: Service Date/Time: Saturday, November 04, 2017 11:58 - CONCLUSION: Gaseous distention of bowel loops could be ileus but unchanged. Benja Ramsey MD CT Angiography 11/01/17 0000 Signed Impressions: Service Date/Time: Wednesday, November 01, 2017 16:47 - CONCLUSION: No evidence for pulmonary embolism. Please see above. Choco Mustafa MD Thoracentesis 08/05/17 1535 Signed Impressions: Service Date/Time: Saturday, August 05, 2017 16:08 - CONCLUSION: Uncomplicated CT-guided thoracentesis. Sage Adler MD Chest Ultrasound 08/02/17 0000 Signed Impressions: Service Date/Time: Tuesday, August 01, 2017 22:06 - CONCLUSION: 1. Moderate right pleural effusion, as above. Alejo De La Vega MD Hip and Pelvis X-Ray 07/09/17 0000 Signed Impressions: Service Date/Time: Sunday, July 09, 2017 14:04 - CONCLUSION: Anatomic alignment. Ricardo Middleton MD FACR Liver Ultrasound 06/19/17 0000 Signed Impressions: Service Date/Time: June 13:20 - CONCLUSION: 1. Mildly increased echotexture of the liver characteristic of hepatic steatosis. 2. Gallbladder sludge. Obdulio Sam MD Head CT 05/15/17 0000 Signed Impressions: Service Date/Time: May 19:59 - CONCLUSION: 1. 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 2. No bleed or new/acute infarct. Obdulio Simms MD Gall Bladder Ultrasound 05/08/17 0000 Signed Impressions: Service Date/Time: May 08:23 - CONCLUSION: Focally unremarkable appearance of the gallbladder Obdulio Chun MD Abdomen/Pelvis CT 05/07/17 0000 Signed Impressions: Service Date/Time: Sunday, May 07, 2017 13:23 - CONCLUSION: 1. Large left pneumothorax. 2. Bilateral lower lobe consolidation and bilateral moderate size pleural effusions. 3. Significant soft tissue thickening of the right lateral chest wall and left gluteus muscle. 4. Mild ascites. The findings were called to Dr. Carney. Deangelo Zamora MD Chest CT 04/30/17 0000 Signed Impressions: Service Date/Time: Sunday, April 30, 2017 09:20 - CONCLUSION: 1. Bilateral pulmonary infiltrates more pronounced within the lower lobes with tiny bilateral pleural effusions. Material seen filling the lower lobe bronchi bilaterally either related to purulent material or perhaps mucus plugging. Deangelo Wren Jr., MD Carotid Artery Ultrasound 04/24/17 0000 Signed Impressions: Service Date/Time: April 09:45 - CONCLUSION: 1. No hemodynamically significant carotid artery stenosis. Arnie Middleton MD Hip X-Ray 04/21/17 0000 Signed Impressions: Service Date/Time: Friday, April 21, 2017 11:36 - CONCLUSION: Fluoroscopic images during placement of intramedullary siomara left femur. Benja Ramsey MD Objective Remarks GENERAL: Awake follows no commands left side is flaccid can move right side review of systems is unobtainable SKIN: Warm and dry. HEAD: Atraumatic. Normocephalic. EYES: Pupils equal and round. No scleral icterus. No injection or drainage. ENT: No nasal bleeding or discharge. Mucous membranes pink and moist. NECK: Trachea midline. No JVD. Supple tracheostomy in place CARDIOVASCULAR: Regular rate and rhythm. S1-S2 no S3 or S4 RESPIRATORY: No accessory muscle use. Clear to auscultation. Breath sounds equal bilaterally. GASTROINTESTINAL: Abdomen soft, non-tender, nondistended. Hepatic and splenic margins not palpable. PEG tube in place MUSCULOSKELETAL: Extremities without clubbing, cyanosis, or edema. No obvious deformities. NEUROLOGICAL: Awake and alert. No obvious cranial nerve deficits. Motor grossly within normal limits. Moves left side does not follow commands. No speech. PSYCHIATRIC: INAppropriate mood and affect; insight and judgment ABnormal. Procedures PEG tube trach 05/15/17 and PEG 05/16/17 Medications and IVs Current Medications Potassium Chloride 100 ml @ As Directed STK-MED ONCE .ROUTE Last administered on 04/20/17t 13:58; Start 04/20/17 at 13:50; Stop 04/20/17 at 13:51; Status DC Sodium Chloride 1,000 ml @ 250 mls/hr Q4H IV ; Start 04/20/17 at 14:30; Stop at 21:57; Status DC Dextrose/Sodium Chloride 1,000 ml @ 200 mls/hr Q5H IV Last administered on t 14:30; Start 04/20/17 at 14:30; Stop 04/20/17 at 21:57; Status DC Miscellaneous Medication ([facility] [place] [facility] Information) Mix all IV Medications in Nor... UNSCH .XX ; Start 04/20/17 at 14:30; Stop 04/20/17 at 21:57; Status DC Potassium Chloride 100 ml @ 100 mls/hr Q1H PRN IV SEE PROTOCOL; Start at 14:30; Stop 04/20/17 at 21:57; Status DC Potassium Chloride 100 ml @ 50 mls/hr Q2H PRN IV SEE PROTOCOL; Start 04/20/17 at 14:30; Stop 04/20/17 at 21:57; Status DC Potassium Chloride 100 ml @ 100 mls/hr Q1H PRN IV SEE PROTOCOL; Start at 14:30; Stop 04/20/17 at 21:57; Status DC Potassium Chloride 100 ml @ 100 mls/hr Q1H PRN IV SEE PROTOCOL TABLE; Start at 14:30; Stop 04/20/17 at 21:57; Status DC Potassium Chloride 100 ml @ 50 mls/hr Q2H PRN IV SEE PROTOCOL; Start 04/20/17 at 14:30; Stop 04/20/17 at 21:57; Status DC Potassium Chloride 100 ml @ 50 mls/hr Q2H PRN IV SEE PROTOCOL TABLE; Start at 14:30; Stop 04/20/17 at 21:57; Status DC Potassium Chloride 100 ml @ 50 mls/hr Q2H PRN IV SEE PROTOCOL TABLE; Start at 14:30; Stop 04/20/17 at 21:57; Status DC Potassium Chloride 100 ml @ 50 mls/hr Q2H PRN IV SEE PROTOCOL TABLE; Start at 14:30; Stop 04/20/17 at 21:57; Status DC Insulin Human Regular (NovoLIN R INJ) 0.1 units/ Kg actual body weight BOLUS ONCE IV PUSH Last administered on 04/20/17 15:51; Start 04/20/17 at 14:30; Stop 04/20/17 at 14:31; Status DC Insulin Human Regular 100 units/ Sodium Chloride 100 ml @ 0 mls/hr TITRATE IV ; Start 04/20/17 at 14:30; Stop 04/20/17 at 21:57; Status DC Dextrose (D50w (Vial) Inj) 50 ml Q10M PRN IV PUSH HYPOGLYCEMIA DKA -SEE COMMENTS; Start 04/20/17 at 14:30; Stop 04/20/17 at 21:57; Status DC Sodium Bicarbonate (Sodium Bicarbonate 8.4% Inj) 100 meq STAT PRN IV SEE LABEL COMMENTS; Start 04/20/17 at 14:30; Stop 04/20/17 at 21:57; Status DC Sodium Bicarbonate (Sodium Bicarbonate 8.4% Inj) 50 meq STAT PRN IV SEE LABEL COMMENTS; Start 04/20/17 at 14:30; Stop 04/20/17 at 21:57; Status DC Sodium Phosphate 15 mmol/Sodium Chloride 105 ml @ 25 mls/hr UNSCH PRN IV SEE PROTOCOL TABLE; Start 04/20/17 at 14:30; Stop 04/20/17 at 21:57; Status DC Acetaminophen (Tylenol) 650 mg Q6H PRN PO PAIN SCALE 1 TO 2 Last administered on 05/03/17 00:27; Start 04/20/17 at 14:30; Stop 05/07/17 at 12:46; Status DC Ondansetron HCl (Zofran Inj) 4 mg Q6H PRN IV PUSH NAUSEA AND VOMITING Last administered on 04/30/17 02:28; Start 04/20/17 at 15:00; Stop 08/04/17 at 16:22 ; Status DC Heparin Sodium (Porcine) (Heparin Inj) 5,000 units Q12HR SQ Last administered on 04/20/17 21:00; Start 04/20/17 at 21:00; Stop 04/21/17 at 11:44; Status DC Morphine Sulfate (Morphine Inj) 1 mg Q3H PRN IV Pain 3-5; if unable to take PO Last administered on 04/28/17 18:15; Start 04/20/17 at 17:15; Stop 05/19/17 at 07:55; Status DC Morphine Sulfate (Morphine Inj) 2 mg Q3H PRN IV Pain 6-10;if unable to take PO Last administered on 04/30/17 02:29; Start 04/20/17 at 17:15; Stop 05/19/17 at 07:55; Status DC Naloxone HCl (Narcan Inj) 0.4 mg UNSCH PRN IV SEE LABEL COMMENTS; Start at 17:15 Senna/Docusate Sodium (Nalini-Colace) 1 tab BID PO Last administered on 05/07/17 10:30; Start 04/20/17 at 21:00; Stop 05/07/17 at 12:50; Status DC Magnesium Hydroxide (Milk Of Magnesia Liq) 30 ml Q12H PRN PO MILD - MODERATE CONSTIPATION; Start 04/20/17 at 20:30; Stop 07/26/17 at 16:12; Status DC Sennosides (Senokot) 17.2 mg Q12H PRN PO MODERATE - SEVERE CONSTIPATION Last administered on 04/23/17 22:55; Start 04/20/17 at 20:30; Stop 05/19/17 at 08:05 ; Status DC Bisacodyl (Dulcolax Supp) 10 mg DAILY PRN RECTAL SEVERE CONSITIPATION; Start at 20:30; Stop 07/26/17 at 16:12; Status DC Lactulose (Lactulose Liq) 30 ml DAILY PRN PO SEVERE CONSITIPATION; Start at 20:30; Stop 05/05/17 at 09:24; Status DC Dextrose (D50w (Vial) Inj) 50 ml UNSCH PRN IV HYPOGLYCEMIA-SEE COMMENTS; Start 04/20/17 at 21:45; Stop 04/24/17 at 09:34; Status DC Glucagon (Glucagon Inj) 1 mg UNSCH PRN OTHER HYPOGLYCEMIA-SEE COMMENTS; Start 04/20/17 at 21:45; Stop 04/24/17 at 09:34; Status DC Insulin Aspart (NovoLOG SUPPLEMENTAL SCALE) 1 ACHS SLIDING SCALE SQ Last administered on 04/24/17 06:43; Start 04/21/17 at 07:00; Stop 04/24/17 at 09:35 ; Status DC Calcium Carbonate (Oscal) 500 mg ONCE ONCE PO ; Start 04/21/17 at 07:00; Stop 04/21/17 at 07:11; Status DC Sodium Phosphate 15 mmol/Sodium Chloride 155 ml @ 38.75 mls/ hr ONCE ONCE IV Last administered on 04/21/17 09:32; Start 04/21/17 at 07:00; Stop 04/21/17 at 10:59; Status DC Sodium Chloride 1,000 ml @ 75 mls/hr [id number] IV ; Start 04/21/17 at 09:03; Stop 04/21/17 at 09:03; Status DC Sodium Chloride 1,000 ml @ 100 mls/hr Q10H IV Last administered on 04/23/17 02:15; Start 04/21/17 at 09:03; Stop 04/24/17 at 09:12; Status DC Cefazolin Sodium (Ancef Inj) 1,000 mg STK-MED ONCE .ROUTE Last administered on 04/21/17 10:38; Start 04/21/17 at 10:30; Stop 04/21/17 at 10:31; Status DC Gentamicin Sulfate (Gentamicin Inj) 160 mg STK-MED ONCE .ROUTE Last administered on 04/21/17 11:36; Start 04/21/17 at 10:30; Stop 04/21/17 at 10:31 ; Status DC Vancomycin HCl (Vancomycin Inj) 1,000 mg STK-MED ONCE .ROUTE Last administered on 04/21/17 11:04; Start 04/21/17 at 10:40; Stop 04/21/17 at 10:41; Status DC Bupivacaine HCl/ Epinephrine Bitart (Sensorcaine-Epinephrine 0.25% Inj) 50 ml STK-MED ONCE .ROUTE Last administered on 04/21/17 11:39; Start 04/21/17 at 11: 39; Stop 04/21/17 at 11:40; Status DC IV Flush (NS Flush) 2 ml UNSCH PRN IVF FLUSH AFTER USING IV ACCESS; Start 04/21 at 11:45; Stop 04/24/17 at 09:34; Status DC IV Flush (NS Flush) 2 ml BID IVF Last administered on 04/23/17 07:51; Start at 21:00; Stop 04/24/17 at 09:34; Status DC Enoxaparin Sodium (Lovenox Inj) 30 mg Q24H SQ Last administered on 04/23/17 11 :01; Start 04/22/17 at 11:00; Stop 04/24/17 at 18:07; Status DC Cefazolin Sodium 1000 mg/Sodium Chloride 100 ml @ 200 mls/hr Q8H IV Last administered on 04/22/17 09:07; Start 04/21/17 at 18:00; Stop 04/22/17 at 10:29 ; Status DC Calcium/Vitamin D (Oscal-D 250-125) 250 mg TID PO Last administered on 09:56; Start 04/21/17 at 13:00; Stop 10/03/17 at 11:55; Status DC Diphenhydramine HCl (Benadryl) 25 mg Q6H PRN PO ITCHING; Start 04/21/17 at 11: 45; Stop 04/24/17 at 08:24; Status DC Acetaminophen/ Hydrocodone Bitart ([place] 7.5-325 Mg) 1 tab Q3H PRN PO pain 3< 10 Last administered on 05/03/17 20:17; Start 04/21/17 at 11:45; Stop 05/07/17 at 12:46; Status DC Cholecalciferol (Vitamin D3) 5,000 units DAILY PO Last administered on 09:08; Start 04/22/17 at 09:00; Stop 10/03/17 at 11:55; Status DC Ergocalciferol (Drisdol) 50,000 units ONCE ONCE PO ; Start 04/21/17 at 13:00; Stop 04/21/17 at 13:01; Status DC Midazolam HCl (Versed Inj) 2 mg STK-MED ONCE .ROUTE ; Start 04/21/17 at 12:15; Stop 04/21/17 at 12:16; Status DC Fentanyl Citrate (fentaNYL INJ) 250 mcg STK-MED ONCE .ROUTE ; Start 04/21/17 at 12:16; Stop 04/21/17 at 12:17; Status DC Morphine Sulfate (*morphine INJ PERIprocedure ONLY) 8 mg STK-MED ONCE .ROUTE Last administered on 04/21/17 12:37; Start 04/21/17 at 12:36; Stop 04/21/17 at 12:37; Status DC Miscellaneous Information ALL NURSING DEPARTME... UNSCH PRN .XX SEE LABEL COMMENTS; Start 04/21/17 at 13:00; Stop 04/22/17 at 12:59; Status DC Calcium Carbonate (Oscal) 500 mg ONCE ONCE PO ; Start 04/24/17 at 08:00; Stop 04/24/17 at 08:01; Status DC Sodium Chloride 1,000 ml @ 70 mls/hr [id number] IV ; Start 04/24/17 at 09:15; Stop 04/24/17 at 09:37; Status DC IV Flush (NS Flush) 2 ml BID IV FLUSH Last administered on 11/16/17at 09:00; Start 04/24/17 at 21:00; Stop 11/16/17 at 10:52; Status DC IV Flush (NS Flush) 2 ml UNSCH PRN IV FLUSH FLUSH AFTER USING IV ACCESS Last administered on 09/17/17at 08:48; Start 04/24/17 at 09:30; Stop 11/21/17 at 20:44 ; Status DC Sodium Chloride 1,000 ml @ 70 mls/hr [id number] IV Last administered on 03:38; Start 04/24/17 at 09:25; Stop 04/30/17 at 07:51; Status DC Aspirin (Aspirin Supp) 300 mg DAILY RECTAL Last administered on 04/26/17 08:38 ; Start 04/24/17 at 09:30; Stop 04/26/17 at 15:21; Status DC Insulin Aspart (NovoLOG SUPPLEMENTAL SCALE) 1 ACHS SQ Last administered on 04/24 17:29; Start 04/24/17 at 11:00; Stop 04/24/17 at 18:07; Status DC Dextrose (D50w (Vial) Inj) 50 ml UNSCH PRN IV PUSH HYPOGLYCEMIA-SEE COMMENTS; Start 04/24/17 at 09:30; Stop 04/24/17 at 18:07; Status DC Glucagon (Glucagon Inj) 1 mg UNSCH PRN OTHER HYPOGLYCEMIA-SEE COMMENTS; Start 04/24/17 at 09:30; Stop 04/24/17 at 18:07; Status DC Insulin Aspart (NovoLOG SUPPLEMENTAL SCALE) 1 Q4HR SQ ; Start 04/24/17 at 18:15 ; Stop 04/24/17 at 20:43; Status DC Dextrose (D50w (Vial) Inj) 25 ml UNSCH PRN IV HYPOGLYCEMIA-SEE COMMENTS; Start 04/24/17 at 18:15; Stop 04/26/17 at 20:28; Status DC Glucagon (Glucagon Inj) 1 mg UNSCH PRN IM/SQ HYPOGLYCEMIA-SEE COMMENTS; Start 04/24/17 at 18:15; Stop 05/21/17 at 13:34; Status DC Insulin Aspart (NovoLOG SUPPLEMENTAL SCALE) 1 Q4H SQ Last administered on 03:48; Start 04/24/17 at 22:00; Stop 04/26/17 at 09:43; Status DC Insulin Detemir (Levemir Inj) 10 units HS SQ Last administered on 04/25/17 23: 46; Start 04/25/17 at 21:00; Stop 04/26/17 at 09:43; Status DC Insulin Detemir (Levemir Inj) 20 units BID SQ Last administered on 04/26/17 11 :05; Start 04/26/17 at 10:00; Stop 04/27/17 at 08:34; Status DC Mannitol (Mannitol Inj) 12.5 gm Q6HR IV Last administered on 04/26/17 11:06; Start 04/26/17 at 12:00; Stop 04/28/17 at 18:33; Status DC Dextrose (D50w (Vial) Inj) 50 ml UNSCH PRN IV HYPOGLYCEMIA-SEE COMMENTS; Start 04/26/17 at 09:45; Status UNV Glucagon (Glucagon Inj) 1 mg UNSCH PRN OTHER HYPOGLYCEMIA-SEE COMMENTS; Start 04/26/17 at 09:45; Status UNV Insulin Aspart (NovoLOG SUPPLEMENTAL SCALE) 1 ACHS SLIDING SCALE SQ Last administered on 04/26/17 11:48; Start 04/26/17 at 11:00; Stop 04/26/17 at 15:24 ; Status DC Insulin Aspart (NovoLOG SUPPLEMENTAL SCALE) 1 Q4HR SQ Last administered on 04/28 09:38; Start 04/26/17 at 16:00; Stop 04/28/17 at 15:40; Status DC Aspirin (Aspirin) 325 mg DAILY DOBHOFF Last administered on 12/01/17at 07:53; Start 04/27/17 at 09:00 Dextrose (D50w (Syr) Inj) 25 ml UNSCH PRN IV HYPOGLYCEMIA- SEE COMMENTS Last administered on 05/18/17 00:22; Start 04/26/17 at 20:30; Stop 05/19/17 at 08:01 ; Status DC Metoprolol Tartrate (Lopressor Inj) 5 mg Q5M PRN IV PUSH HR>150 Last administered on 06/02/17 03:21; Start 04/27/17 at 04:00; Stop 07/12/17 at 01: 05; Status DC Insulin Detemir (Levemir Inj) 15 units BID SQ Last administered on 04/28/17 09 :39; Start 04/27/17 at 09:00; Stop 04/28/17 at 15:36; Status DC Potassium Chloride 100 ml @ 50 mls/hr Q2H PRN IV For Potassium 2.8 - 3.2 mEq/L ; Start 04/27/17 at 08:45; Stop 07/12/17 at 00:31; Status DC Potassium Chloride 100 ml @ 50 mls/hr Q2H PRN IV For Potassium 2.8 - 3.2 mEq/ L Last administered on 05/18/17 10:41; Start 04/27/17 at 08:45; Stop 07/12/17 at 00:31; Status DC Potassium Bicarb/ Potassium Chloride (K-Lyte Cl Eff) 50 meq UNSCH PRN PO For Potassium 3.3 - 3.5 mEq/L; Start 04/27/17 at 08:45; Stop 07/12/17 at 00:31; Status DC Potassium Chloride 100 ml @ 25 mls/hr UNSCH PRN IV For Potassium 3.3 - 3.5 mEq /L Last administered on 05/04/17 19:07; Start 04/27/17 at 08:45; Stop 07/12/17 at 00:31; Status DC Potassium Chloride 100 ml @ 50 mls/hr Q2H PRN IV For Potassium 3.3 - 3.5 mEq/ L Last administered on 05/18/17 08:29; Start 04/27/17 at 08:45; Stop 07/12/17 at 00:31; Status DC Magnesium Sulfate 4 gm/Sodium Chloride 100 ml @ 50 mls/hr UNSCH PRN IV For Magnesium 0.9 - 1.1 mg/dL; Start 04/27/17 at 08:45; Stop 07/12/17 at 00:31; Status DC Magnesium Oxide (Mag-Ox) 800 mg UNSCH PRN PO For Magnesium 1.2 - 1.6 mg/dL; Start 04/27/17 at 08:45; Stop 07/12/17 at 00:31; Status DC Magnesium Sulfate 2 gm/Sodium Chloride 100 ml @ 50 mls/hr UNSCH PRN IV For Magnesium 1.2 - 1.6 mg/dL; Start 04/27/17 at 08:45; Stop 07/12/17 at 00:31; Status DC Potassium Phosphate (K-Phos) 2,000 mg Q4H PRN PO For Phosphorus < 2.5 mg/dL Last administered on 04/28/17 15:38; Start 04/27/17 at 08:45; Stop 07/12/17 at 00:31; Status DC Sodium Phosphate 30 mmol/Sodium Chloride 250 ml @ 42 mls/hr UNSCH PRN IV For Phosphorus < 2.5 mg/dL Last administered on 04/27/17 23:59; Start 04/27/17 at 08:45; Stop 07/12/17 at 00:31; Status DC Potassium Phosphate (K-Phos) 2,000 mg UNSCH PRN PO/TUBE SEE LABEL COMMENTS Last administered on 05/08/17 06:32; Start 04/27/17 at 08:45; Stop 07/12/17 at 00:31; Status DC Potassium Phosphate 30 mmol/ Sodium Chloride 260 ml @ 42 mls/hr UNSCH PRN IV SEE LABEL COMMENTS Last administered on 05/04/17 20:54; Start 04/27/17 at 08:45 ; Stop 07/12/17 at 00:31; Status DC Insulin Detemir (Levemir Inj) 10 units BID SQ Last administered on 04/30/17 21 :00; Start 04/28/17 at 21:00; Stop 05/01/17 at 07:49; Status DC Pantoprazole Sodium (Protonix Inj) 40 mg Q24H IV PUSH Last administered on 17:00; Start 04/28/17 at 17:00; Stop 05/07/17 at 12:52; Status DC Insulin Aspart (NovoLOG SUPPLEMENTAL SCALE) 1 ACHS SLIDING SCALE SQ Last administered on 05/18/17 21:00; Start 04/28/17 at 16:00; Stop 05/19/17 at 07:55 ; Status DC Sodium Chloride 250 ml @ 15 mls/hr ONCE ONCE IV ; Start 04/28/17 at 18:00; Stop 04/28/17 at 18:33; Status DC Acetaminophen (Ofirmev 1000 Mg/ 100 ml Inj) 1,000 mg NOW ONCE IV Last administered on 04/29/17 01:00; Start 04/29/17 at 01:00; Stop 04/29/17 at 01:01 ; Status DC Iohexol (Omnipaque 350 Inj) 75 ml STK-MED ONCE IVCONTRAST Last administered on 04/26/17 04:26; Start 04/26/17 at 04:26; Stop 04/29/17 at 10:24; Status DC Fluconazole/ Sodium Chloride 100 ml @ 100 mls/hr Q24H IV Last administered on 04/30/17 14:59; Start 04/29/17 at 14:00; Stop 04/30/17 at 15:40; Status DC Metronidazole (Flagyl) 500 mg Q8HR DOBHOFF Last administered on 05/13/17 13:37 ; Start 04/29/17 at 14:00; Stop 05/13/17 at 16:14; Status DC Albuterol/ Ipratropium (Duoneb Neb) 1 ampule Q4HR NEB PRN NEB CONGESTION Last administered on 05/04/17 20:38; Start 04/30/17 at 04:45; Stop 05/07/17 at 12:46; Status DC Bumetanide (Bumex Inj) 1 mg ONCE ONCE IV PUSH Last administered on 04/30/17 10:14; Start 04/30/17 at 08:00; Stop 04/30/17 at 08:01; Status DC Potassium Chloride/Sodium Chloride 1,000 ml @ 84 mls/hr [id number] IV Last administered on 05/01/17 07:00; Start 04/30/17 at 08:00; Stop 05/01/17 at 07:32 ; Status DC Albuterol/ Ipratropium (Duoneb Neb) 1 ampule Q6HR NEB NEB Last administered on 05/04/17 07:52; Start 04/30/17 at 10:00; Stop 05/04/17 at 09:59; Status DC Cefepime HCl 2000 mg/Sodium Chloride 100 ml @ 200 mls/hr Q8H IV Last administered on 05/04/17 07:53; Start 04/30/17 at 09:00; Stop 05/04/17 at 08:22; Status DC Micafungin Sodium 100 mg/Sodium Chloride 100 ml @ 100 mls/hr Q24H IV Last administered on 05/07/17 10:29; Start 04/30/17 at 09:00; Stop 05/07/17 at 13:49; Status DC Etomidate (Amidate Inj) 20 mg STK-MED ONCE .ROUTE Last administered on 15:07; Start 04/30/17 at 14:56; Stop 04/30/17 at 14:57; Status DC Midazolam HCl (Versed Inj) 5 mg STK-MED ONCE .ROUTE Last administered on 15:06; Start 04/30/17 at 14:57; Stop 04/30/17 at 14:58; Status DC Rocuronium [place] (Zemuron Inj) 50 mg STK-MED ONCE .ROUTE Last administered on 04/30/17 15:07; Start 04/30/17 at 14:58; Stop 04/30/17 at 14:59; Status DC Etomidate (Amidate Inj) 20 mg NOW ONCE IV PUSH ; Start 04/30/17 at 15:30; Stop 04/30/17 at 15:31; Status DC Midazolam HCl (Versed Inj) 5 mg NOW ONCE IV PUSH ; Start 04/30/17 at 15:30; Stop 04/30/17 at 15:32; Status DC Rocuronium [place] (Zemuron Inj) 50 mg NOW ONCE IV PUSH ; Start 04/30/17 at 15: 45; Stop 04/30/17 at 15:46; Status DC Vancomycin HCl 1000 mg/Sodium Chloride 250 ml @ 250 mls/hr Q12H IV ; Start at 15:45; Status Cancel Pharmacy Profile Note 1,000 ml @ 30 mls/hr UNSCH OTHER ; Start 04/30/17 at 15: 45; Stop 05/04/17 at 08:22; Status DC Vancomycin HCl 1250 mg/Sodium Chloride 262.5 ml @ 250 mls/hr Q12H IV Last administered on 05/03/17 07:24; Start 04/30/17 at 18:00; Stop 05/03/17 at 15:39; Status DC Miscellaneous Information SPECIFIC LAB TO BE DRAWN:VANCOMYCIN TROUGH DATE TO... ONCE ONCE .XX ; Start 05/02/17 at 05:45; Stop 05/02/17 at 05:46; Status DC Sodium Chloride 1,000 ml @ 84 mls/hr [id number] IV Last administered on 05/02/17 09:24; Start 05/01/17 at 07:30; Stop 05/02/17 at 11:49; Status DC Insulin Detemir (Levemir Inj) 20 units Q12H SQ Last administered on 05/02/17 09 :23; Start 05/01/17 at 09:00; Stop 05/02/17 at 12:07; Status DC Enoxaparin Sodium (Lovenox Inj) 40 mg Q24H SQ Last administered on 07/14/17 07:47; Start 05/01/17 at 08:00; Stop 07/14/17 at 12:05; Status DC Lactated Ringer's 1,000 ml @ 75 mls/hr [id number] IV Last administered on 05:57; Start 05/02/17 at 13:00; Stop 05/07/17 at 16:50; Status DC Insulin Detemir (Levemir Inj) 25 units Q12H SQ Last administered on 05/04/17 07 :50; Start 05/02/17 at 21:00; Stop 05/05/17 at 09:20; Status DC Vancomycin HCl 1250 mg/Sodium Chloride 262.5 ml @ 262.5 mls/ hr Q24H IV Last administered on 05/04/17 05:21; Start 05/04/17 at 06:00; Stop 05/04/17 at 08:22; Status DC Miscellaneous Information SPECIFIC LAB TO BE ROLF... ONCE ONCE .XX ; Start at 05:45; Stop 05/06/17 at 05:45; Status DC Levofloxacin/ Dextrose 150 ml @ 100 mls/hr Q24H IV Last administered on 10:00; Start 05/04/17 at 09:00; Stop 05/13/17 at 16:14; Status DC Furosemide (Lasix Inj) 10 mg BID@09,18 IV PUSH Last administered on 05/05/17 09 :05; Start 05/04/17 at 18:00; Stop 05/05/17 at 09:01; Status DC Albuterol/ Ipratropium (Duoneb Neb) 1 ampule Q6HR ALT NEB NEB Last administered on 05/05/17 04:30; Start 05/05/17 at 01:00; Stop 05/05/17 at 04:38; Status DC Albuterol/ Ipratropium (Duoneb Neb) 1 ampule Q6HR NEB NEB Last administered on 05/08/17 09:56; Start 05/05/17 at 10:00; Stop 05/08/17 at 10:15; Status DC Insulin Detemir (Levemir Inj) 10 units Q12H SQ Last administered on 05/07/17 10 :43; Start 05/05/17 at 21:00; Stop 05/07/17 at 13:54; Status DC Lactulose (Lactulose Liq) 30 ml DAILY PO Last administered on 05/07/17 10:29; Start 05/05/17 at 09:30; Stop 05/07/17 at 12:50; Status DC Sodium Chloride 1,000 ml @ 999 mls/hr BOLUS ONCE IV Last administered on 09:08; Start 05/06/17 at 07:45; Stop 05/06/17 at 08:45; Status DC Propofol (Diprivan 200 Mg/20 ml Inj) 200 mg STK-MED ONCE IV ; Start 04/21/17 at 12:12; Stop 05/06/17 at 12:13; Status DC Ephedrine Sulfate (ePHEDrine/NS 25 MG/5 ML SYR) 25 mg STK-MED ONCE IV ; Start at 12:12; Stop 05/06/17 at 12:13; Status DC Neostigmine Methylsulfate (Prostigmin Inj) 3 mg STK-MED ONCE IV ; Start at 12:12; Stop 05/06/17 at 12:13; Status DC Phenylephrine HCl (Neosynephrine/ NS 1000 Mcg/10ml Syr) 1,000 mcg STK-MED ONCE IV ; Start 04/21/17 at 12:12; Stop 05/06/17 at 12:13; Status DC Ondansetron HCl (Zofran Inj) 4 mg STK-MED ONCE IV PUSH ; Start 04/21/17 at 12:12 ; Stop 05/06/17 at 12:13; Status DC Albumin Human (Albumin 5% Inj) 25 gm NOW ONCE IV Last administered on 21:11; Start 05/06/17 at 20:45; Stop 05/06/17 at 20:46; Status DC Albuterol Sulfate (Albuterol Neb) 2.5 mg Q2HR NEB PRN NEB DYSPNEA; Start at 12:30; Stop 05/07/17 at 14:30; Status DC Bumetanide (Bumex Inj) 1 mg ONCE ONCE IV PUSH Last administered on 05/07/17 15 :07; Start 05/07/17 at 15:00; Stop 05/07/17 at 15:01; Status DC Metolazone (Zaroxolyn) 2.5 mg ONCE ONCE PO Last administered on 05/07/17 16:36 ; Start 05/07/17 at 15:30; Stop 05/07/17 at 15:31; Status DC Potassium Chloride (KCl Powder) 20 meq ONCE ONCE PO Last administered on 15:00; Start 05/07/17 at 15:00; Stop 05/07/17 at 15:01; Status DC Docusate Sodium (Colace Liq) 100 mg Q12HR PO Last administered on 07/22/17 21 :52; Start 05/07/17 at 21:00; Stop 07/26/17 at 16:13; Status DC Sennosides (Senna Liq) 8.8 mg BID OG-TUBE Last administered on 05/17/17 09:11 ; Start 05/07/17 at 21:00; Stop 05/19/17 at 08:05; Status DC Lactulose (Lactulose Liq) 30 ml QID PO Last administered on 05/16/17 20:56; Start 05/07/17 at 18:00; Stop 05/19/17 at 08:05; Status DC Polyethylene Glycol (Miralax) 17 gm BID OG-TUBE Last administered on 05/16/17 20:56; Start 05/07/17 at 21:00; Stop 05/19/17 at 08:05; Status DC Mineral Oil (Fleet Mineral Oil Enema) 118 ml ONCE ONCE RECTAL ; Start 05/07/17 at 13:00; Stop 05/07/17 at 14:37; Status DC Mineral Oil (Mineral Oil Liq) 30 ml ONCE ONCE PO Last administered on 16:36; Start 05/07/17 at 16:00; Stop 05/07/17 at 16:02; Status DC Methylnaltrexone [place] (Relistor Inj) 12 mg ONCE ONCE SQ Last administered on 05/07/17 16:37; Start 05/07/17 at 15:00; Stop 05/07/17 at 15:01; Status DC Albuterol Sulfate (Albuterol Neb) 2.5 mg Q2HR NEB PRN NEB DYSPNEA Last administered on 07/06/17 23:51; Start 05/07/17 at 13:00; Stop 07/16/17 at 16:36 ; Status DC Lansoprazole (Prevacid Odt) 30 mg DAILY NG Last administered on 12/01/17at 07:52 ; Start 05/08/17 at 09:00 Iohexol (Omnipaque 350 Inj) 60 ml STK-MED ONCE IVCONTRAST Last administered on 05/07/17 13:35; Start 05/07/17 at 13:35; Stop 05/07/17 at 13:36; Status DC Insulin Detemir (Levemir Inj) 15 units Q12H SQ Last administered on 05/10/17 20 :49; Start 05/07/17 at 21:00; Stop 05/11/17 at 09:21; Status DC Fentanyl Citrate (fentaNYL INJ) 100 mcg STK-MED ONCE .ROUTE ; Start 05/07/17 at 14:17; Stop 05/07/17 at 14:18; Status DC Midazolam HCl (Versed Inj) 5 mg STK-MED ONCE .ROUTE ; Start 05/07/17 at 14:18; Stop 05/07/17 at 14:19; Status DC Mineral Oil (Fleet Mineral Oil Enema) 118 ml ONCE ONCE RECTAL Last administered on 05/07/17 16:35; Start 05/07/17 at 16:00; Stop 05/07/17 at 16:02; Status DC Fentanyl Citrate (fentaNYL INJ) 50 mcg NOW ONCE IV Last administered on 17:21; Start 05/07/17 at 17:15; Stop 05/07/17 at 17:20; Status DC Midazolam HCl (Versed Inj) 1 mg NOW ONCE IV Last administered on 05/07/17 17: 15; Start 05/07/17 at 17:15; Stop 05/07/17 at 17:20; Status DC Potassium Chloride (KCl Powder) 80 meq ONCE ONCE PO Last administered on 10:29; Start 05/08/17 at 10:00; Stop 05/08/17 at 10:01; Status DC Potassium Chloride 100 ml @ 100 mls/hr Q1H IV Last administered on 05/08/17 15 :24; Start 05/08/17 at 10:00; Stop 05/08/17 at 12:59; Status DC Potassium Phos/ Sodium Phos (K-Phos Neutral) 1,000 mg ONCE ONCE PO Last administered on 05/08/17 10:46; Start 05/08/17 at 10:00; Stop 05/08/17 at 10:01; Status DC Bumetanide (Bumex Inj) 1 mg ONCE ONCE IV PUSH Last administered on 05/08/17 10 :28; Start 05/08/17 at 10:00; Stop 05/08/17 at 10:01; Status DC Albuterol/ Ipratropium (Duoneb Neb) 1 ampule Q6HR NEB NEB Last administered on 05/12/17 15:53; Start 05/08/17 at 16:00; Stop 05/12/17 at 15:59; Status DC Furosemide (Lasix Inj) 20 mg BID@09,18 IV PUSH Last administered on 05/10/17 18 :00; Start 05/10/17 at 10:00; Stop 05/11/17 at 06:15; Status DC Furosemide (Lasix Inj) 40 mg BID@0900,1800 IV PUSH Last administered on 17:53; Start 05/11/17 at 09:00; Stop 05/18/17 at 08:06; Status DC Acetazolamide Sodium (Diamox Inj) 500 mg DAILY IV PUSH Last administered on 08:54; Start 05/11/17 at 09:30; Stop 05/12/17 at 23:00; Status DC Insulin Detemir (Levemir Inj) 5 units Q12H SQ Last administered on 05/17/17 09 :12; Start 05/11/17 at 21:00; Stop 05/18/17 at 08:06; Status DC Protein (Beneprotein Powder) 1 pack TID G-TUBE Last administered on 10/03/17at 09 :00; Start 05/12/17 at 13:00; Stop 10/03/17 at 11:56; Status DC Acetazolamide Sodium (Diamox Inj) 500 mg ONCE ONCE IV PUSH Last administered on 05/13/17 22:40; Start 05/13/17 at 22:00; Stop 05/13/17 at 22:01; Status DC Cisatracurium Besylate (Nimbex Inj) 12 mg ONCE ONCE IV PUSH Last administered on 05/15/17 15:15; Start 05/14/17 at 17:45; Stop 05/14/17 at 17:49; Status DC Fentanyl Citrate (fentaNYL INJ) 100 mcg [employer] IV PUSH Last administered on 15:15; Start 05/14/17 at 17:45; Stop 05/15/17 at 17:44; Status DC Midazolam HCl (Versed Inj) 2 mg [employer] IV PUSH Last administered on 15:15; Start 05/14/17 at 17:45; Stop 05/15/17 at 17:44; Status DC Cisatracurium Besylate (Nimbex Inj) 12 mg [employer] IV PUSH ; Start 05/14/17 at 18:00; Stop 05/15/17 at 17:59; Status DC Cefazolin Sodium 1000 mg/Sodium Chloride 100 ml @ 200 mls/hr [employer] IV Last administered on 05/16/17 12:35; Start 05/15/17 at 17:15; Stop 05/18/17 at 17:14 ; Status DC Propofol (Diprivan 200 Mg/20 ml Inj) 210 mg STK-MED ONCE IV ; Start 05/16/17 at 13:30; Stop 05/16/17 at 18:25; Status DC Sodium Chloride 1,000 ml @ 75 mls/hr [id number] IV Last administered on 12:42; Start 05/17/17 at 11:45; Stop 05/19/17 at 07:55; Status DC Furosemide (Lasix Inj) 40 mg DAILY IV PUSH Last administered on 05/18/17 08:29 ; Start 05/18/17 at 09:00; Stop 05/19/17 at 07:55; Status DC Furosemide (Lasix Liq) 40 mg DAILY NG Last administered on 06/18/17 11:02; Start 05/19/17 at 09:00; Stop 06/19/17 at 06:54; Status DC Dextrose (D50w (Vial) Inj) 25 ml UNSCH PRN IV PUSH HYPOGLYCEMIA-SEE COMMENTS; Start 05/19/17 at 08:00; Stop 05/20/17 at 20:59; Status DC Insulin Human Regular (NovoLIN R SUPPLEMENTAL SCALE) 1 Q4HR SQ Last administered on 05/21/17 12:00; Start 05/19/17 at 08:00; Stop 05/21/17 at 13:15 ; Status DC Insulin Detemir (Levemir Inj) 8 units DAILY SQ Last administered on 05/20/17 09:00; Start 05/19/17 at 09:00; Stop 05/21/17 at 13:15; Status DC Dextrose (D50w (Syr) Inj) 25 ml UNSCH PRN IV PUSH HYPOGLYCEMIA-SEE COMMENTS Last administered on 05/20/17 21:14; Start 05/20/17 at 21:00; Stop 05/21/17 at 13:34; Status DC Insulin Detemir (Levemir Inj) 7 units Q12H SQ Last administered on 05/22/17 09 :00; Start 05/21/17 at 21:00; Stop 05/22/17 at 17:19; Status DC Dextrose (D50w (Vial) Inj) 50 ml UNSCH PRN IV PUSH HYPOGLYCEMIA-SEE COMMENTS; Start 05/21/17 at 13:15; Stop 05/22/17 at 17:06; Status DC Glucagon (Glucagon Inj) 1 mg UNSCH PRN OTHER HYPOGLYCEMIA-SEE COMMENTS; Start 05/21/17 at 13:15; Stop 10/08/17 at 11:08; Status DC Insulin Aspart (NovoLOG SUPPLEMENTAL SCALE) 1 ACHS SLIDING SCALE SQ Last administered on 06/11/17 11:56; Start 05/21/17 at 17:00; Stop 06/12/17 at 07: 10; Status DC Dextrose (D50w (Syr) Inj) 50 ml UNSCH PRN IV PUSH HYPOGLYCEMIA-SEE COMMENTS Last administered on 10/04/17at 01:57; Start 05/22/17 at 17:15; Stop 10/08/17 at 11 :08; Status DC Insulin Detemir (Levemir Inj) 5 units Q12H SQ Last administered on 05/27/17 21 :22; Start 05/22/17 at 21:00; Stop 05/28/17 at 09:50; Status DC Enalaprilat (Vasotec Inj) 1.25 mg Q6H PRN IV PUSH SBP> OR = 180, DBP> OR = 100 Last administered on 05/31/17 05:28; Start 05/24/17 at 22:45; Stop 05/31/17 at 07:41; Status DC Water (Free Water) VOLUME: 300 ML Q6HR G-TUBE Last administered on 06/10/17 06:00; Start 05/25/17 at 14:15; Stop 06/10/17 at 11:23; Status DC Acetazolamide Sodium (Diamox Inj) 500 mg ONCE ONCE IV PUSH Last administered on 05/26/17 08:54; Start 05/26/17 at 09:00; Stop 05/26/17 at 09:01; Status DC Ceftriaxone Sodium 1000 mg/ Sodium Chloride 100 ml @ 200 mls/hr Q24H IV Last administered on 05/27/17 08:32; Start 05/26/17 at 09:00; Stop 05/27/17 at 15:41 ; Status DC Cefepime HCl 1000 mg/Sodium Chloride 100 ml @ 200 mls/hr Q12H IV Last administered on 06/03/17 05:32; Start 05/27/17 at 16:00; Stop 06/03/17 at 09:12 ; Status DC Sodium Chloride 250 ml @ 15 mls/hr ONCE ONCE IV Last administered on 09:45; Start 05/28/17 at 09:45; Stop 05/29/17 at 02:24; Status DC Acetaminophen (Tylenol) 650 mg Q4H PRN PO SEE LABEL COMMENTS; Start 05/28/17 at 10:00; Stop 06/10/17 at 11:23; Status DC Diphenhydramine HCl (Benadryl) 25 mg Q4H PRN PO SEE LABEL COMMENTS; Start 05/28 at 10:00; Stop 06/02/17 at 07:40; Status DC Furosemide (Lasix Inj) 20 mg ONCE ONCE IV PUSH ; Start 05/28/17 at 10:00; Stop 05/28/17 at 10:01; Status DC Insulin Detemir (Levemir Inj) 7 units Q12H SQ Last administered on 06/20/17 21:12; Start 05/28/17 at 21:00; Stop 06/21/17 at 07:27; Status DC Artificial Tears (Tears Naturale Opth Soln) 1 drop Q4H PRN EACH EYE DRY EYE; Start 05/29/17 at 21:15; Stop 06/12/17 at 07:10; Status DC Hydralazine HCl (Apresoline Inj) 20 mg Q4H PRN IV PUSH SBP >160 Last administered on 06/21/17 04:06; Start 05/31/17 at 07:45; Stop 06/21/17 at 07: 23; Status DC Lisinopril (Prinivil) 10 mg Q12HR PO Last administered on 06/20/17 21:12; Start 05/31/17 at 09:00; Stop 06/21/17 at 07:23; Status DC Artificial Tears (Tears Naturale Opth Soln) 1 drop Q8HR EACH EYE Last administered on 12/01/17at 06:00; Start 06/12/17 at 07:15 Insulin Aspart (NovoLOG SUPPLEMENTAL SCALE) 1 Q6HR SQ Last administered on 18:00; Start 06/12/17 at 12:00; Stop 07/16/17 at 16:36; Status DC Sodium Chloride (Sodium Chloride) 2 gm ONCE ONCE PEG Last administered on 09:41; Start 06/12/17 at 07:00; Stop 06/12/17 at 07:12; Status DC Albuterol/ Ipratropium (Duoneb Neb) 1 ampule Q6HR NEB NEB Last administered on 06/16/17 03:46; Start 06/12/17 at 10:00; Stop 06/16/17 at 07:10; Status DC Insulin Aspart (NovoLOG INJ) 10 units ONCE ONCE SQ Last administered on 10:00; Start 06/12/17 at 10:00; Stop 06/12/17 at 10:32; Status DC Erythromycin Ethylsuccinate (Ees) 250 mg Q8HR PO ; Start 06/16/17 at 02:00; Stop 06/16/17 at 02:00; Status DC Methylnaltrexone [place] (Relistor Inj) 12 mg ONCE ONCE SQ Last administered on 06/16/17 01:40; Start 06/16/17 at 02:00; Stop 06/16/17 at 02:01; Status DC Erythromycin (Erythromycin Ec) 250 mg Q8HR PO Last administered on 06/18/17 12:27; Start 06/16/17 at 02:00; Stop 06/18/17 at 22:53; Status DC Albuterol/ Ipratropium (Duoneb Neb) 1 ampule Q6HR NEB NEB Last administered on 06/20/17 08:04; Start 06/16/17 at 10:00; Stop 06/20/17 at 09:24; Status DC Erythromycin Ethylsuccinate (Ees 400 Mg/5 ml Liq) 250 mg Q8H PO Last administered on 06/19/17 01:19; Start 06/19/17 at 00:00; Stop 06/19/17 at 06 :54; Status DC Polyethylene Glycol (Miralax) 17 gm DAILY PO ; Start 06/19/17 at 09:00; Stop 06/23/17 at 06:47; Status DC Albuterol/ Ipratropium (Duoneb Neb) 1 ampule Q6HR NEB NEB Last administered on 06/24/17 08:30; Start 06/20/17 at 10:00; Stop 06/24/17 at 09:59; Status DC Hydralazine HCl (Apresoline Inj) 10 mg Q1H PRN IV PUSH SBP >160 Last administered on 07/10/17 13:51; Start 06/21/17 at 07:30; Stop 07/12/17 at 00: 26; Status DC Lisinopril (Prinivil) 20 mg Q12HR PO Last administered on 08/22/17 21:16; Start 06/21/17 at 09:00; Stop 08/23/17 at 07:26; Status DC Labetalol HCl (Trandate Inj) 10 mg Q1H PRN IV PUSH SBP>160, DBP>90, HR>65 Last administered on 07/08/17 05:02; Start 06/21/17 at 07:30; Stop 07/12/17 at 00: 26; Status DC Nitroglycerin (Nitroglycerin 2% Oint) 2 inch Q6H PRN TOPICAL SBP>160, DBP>90 Last administered on 06/30/17 14:37; Start 06/21/17 at 08:00 Piperacillin Sod/ Tazobactam Sod 100 ml @ 200 mls/hr Q6H IV Last administered on 06/29/17 02:07; Start 06/21/17 at 09:00; Stop 06/29/17 at 08:59; Status DC Pharmacy Profile Note 0 ml @ 0 mls/hr UNSCH OTHER ; Start 06/21/17 at 07:30; Stop 06/23/17 at 06:46; Status DC Guaifenesin (Robitussin Liq) 400 mg Q8HR PEG Last administered on 06/29/17 06 :02; Start 06/21/17 at 14:00; Stop 06/29/17 at 13:59; Status DC Sodium Chloride (Sodium Chloride 3% Neb) 2 ml Q6HR NEB NEB Last administered on 06/29/17 08:21; Start 06/21/17 at 10:00; Stop 06/29/17 at 09:59; Status DC Insulin Detemir (Levemir Inj) 10 units Q12H SQ Last administered on 07/19/17 08:39; Start 06/21/17 at 09:00; Stop 07/19/17 at 09:26; Status DC Vancomycin HCl 1000 mg/Sodium Chloride 250 ml @ 250 mls/hr ONCE ONCE IV Last administered on 06/21/17 11:50; Start 06/21/17 at 12:00; Stop 06/21/17 at 12 :59; Status DC Vancomycin HCl 750 mg/Sodium Chloride 257.5 ml @ 250 mls/hr Q12H IV Last administered on 06/23/17 00:02; Start 06/22/17 at 00:00; Stop 06/23/17 at 06 :46; Status DC Miscellaneous Information SPECIFIC LAB TO BE ROLF..Stephanie ONCE ONCE .XX ; Start at 23:45; Stop 06/22/17 at 23:46; Status DC Miscellaneous Information SPECIFIC LAB TO BE ROLF..Stephanie ONCE ONCE .XX ; Start at 11:45; Stop 06/23/17 at 11:46; Status DC Polyethylene Glycol (Miralax) 17 gm BID PEG Last administered on 07/02/17 08: 35; Start 06/23/17 at 09:00; Stop 07/09/17 at 08:04; Status DC Albuterol/ Ipratropium (Duoneb Neb) 1 ampule Q6HR NEB NEB Last administered on 07/08/17 10:22; Start 07/04/17 at 10:00; Stop 07/08/17 at 09:59; Status DC Polyethylene Glycol (Miralax) 17 gm DAILY PEG Last administered on 10/02/17at 07: 59; Start 07/09/17 at 09:00; Stop 10/03/17 at 11:56; Status DC Clonidine (Catapres) 0.1 mg Q6H PRN PO SBP >160 Last administered on 16:22; Start 07/12/17 at 00:30; Stop 10/03/17 at 11:55; Status DC Heparin Sodium (Porcine) (Heparin Inj) 5,000 units Q8HR SQ Last administered on 12/01/17at 06:40; Start 07/15/17 at 08:00 Sodium Chloride 1,000 ml @ 42 mls/hr [id number] IV Last administered on 15:15; Start 07/14/17 at 14:45; Stop 07/15/17 at 08:00; Status DC Albuterol/ Ipratropium (Duoneb Neb) 2.5 ampule Q6HR NEB NEB ; Start 07/16/17 at 16:45; Stop 07/16/17 at 19:01; Status DC Hyoscyamine Sulfate (Levsin Liq) 0.125 mg BID PEG ; Start 07/16/17 at 21:00; Stop 07/16/17 at 21:00; Status DC Albuterol Sulfate (Albuterol Neb) 2.5 mg Q6HR NEB INH Last administered on 19:49; Start 07/16/17 at 22:00; Stop 07/20/17 at 21:59; Status DC Acetylcysteine (Mucomyst 20% Neb) 2 ml Q8HR NEB PRN NEB SECRETIONS; Start at 08:00; Stop 07/17/17 at 08:00; Status DC Acetylcysteine (Mucomyst 20% Neb) 2 ml Q8HR NEB PRN NEB SECRETIONS Last administered on 07/21/17 03:31; Start 07/17/17 at 08:00; Stop 07/21/17 at 07 :59; Status DC Trimethoprim/ Sulfamethoxazole (Bactrim 800-160 Mg/20 ml Liq) 20 ml Q12H PO ; Start 07/17/17 at 09:45; Stop 07/17/17 at 09:50; Status DC Trimethoprim/ Sulfamethoxazole (Bactrim 800-160 Mg/20 ml Liq) 20 ml Q12HR PEG Last administered on 07/19/17 21:27; Start 07/17/17 at 11:00; Stop 07/19/17 at 21:01; Status DC Insulin Detemir (Levemir Inj) 15 units Q12H SQ Last administered on 07/20/17 08:00; Start 07/19/17 at 21:00; Stop 07/20/17 at 08:26; Status DC Insulin Detemir (Levemir Inj) 18 units Q12H SQ Last administered on 07/22/17 13:46; Start 07/20/17 at 21:00; Stop 07/22/17 at 14:39; Status DC Trimethoprim/ Sulfamethoxazole (Bactrim 800-160 Mg/20 ml Liq) 20 ml Q12HR PEG Last administered on 07/21/17 08:12; Start 07/20/17 at 15:00; Stop 07/21/17 at 13:16; Status DC Albuterol/ Ipratropium (Duoneb Neb) 1 ampule ONCE ONCE NEB Last administered on 07/21/17 03:30; Start 07/21/17 at 03:30; Stop 07/21/17 at 03:31; Status DC Albuterol/ Ipratropium (Duoneb Neb) 1 ampule ONCE PRN NEB SHORTNESS OF BREATH; Start 07/21/17 at 04:15; Stop 07/21/17 at 07:30; Status DC Albuterol/ Ipratropium (Duoneb Neb) 1 ampule Q6HR NEB NEB Last administered on 07/25/17 09:05; Start 07/21/17 at 10:00; Stop 07/25/17 at 09:59; Status DC Acetylcysteine (Mucomyst 20% Neb) 2 ml Q8HR NEB PRN NEB SECRETIONS; Start at 07:00; Stop 07/21/17 at 07:24; Status DC Piperacillin Sod/ Tazobactam Sod 100 ml @ 200 mls/hr Q6H IV Last administered on 07/25/17 04:56; Start 07/21/17 at 10:00; Stop 07/25/17 at 07:50; Status DC Azithromycin 500 mg/Sodium Chloride 250 ml @ 250 mls/hr Q24H IV Last administered on 07/25/17 10:58; Start 07/21/17 at 11:00; Stop 07/25/17 at 13 :36; Status DC Insulin Aspart (NovoLOG SUPPLEMENTAL SCALE) 1 Q6HR SQ Last administered on at 06:47; Start 07/21/17 at 18:00; Stop 10/08/17 at 09:45; Status DC Insulin Detemir (Levemir Inj) 15 units Q12H SQ Last administered on 07/26/17 23:10; Start 07/22/17 at 21:00; Stop 07/27/17 at 09:00; Status DC Ceftolozane/ Tazobactam 1500 mg/Sodium Chloride 100 ml @ 100 mls/hr Q8H IV Last administered on 08/06/17 08:25; Start 07/25/17 at 09:00; Stop 08/06/17 at 12:58; Status DC Fluconazole/ Sodium Chloride 100 ml @ 100 mls/hr ONCE ONCE IV Last administered on 07/26/17 17:00; Start 07/26/17 at 17:00; Stop 07/26/17 at 17 :59; Status DC Insulin Detemir (Levemir Inj) 7 units Q12HR SQ Last administered on 09/14/17 07:32; Start 07/27/17 at 09:00; Stop 09/14/17 at 15:42; Status DC Furosemide (Lasix Liq) 40 mg ONCE ONCE NG Last administered on 07/29/17 17: 29; Start 07/29/17 at 16:00; Stop 07/29/17 at 16:02; Status DC Lactated Ringer's 1,000 ml @ 30 mls/hr Q24H PRN IV SEE LABEL COMMENTS; Start 08/03/17 at 06:30; Stop 08/06/17 at 06:29; Status DC Lidocaine/ Epinephrine (Xylocaine-Epi 1%-1:100,000 Inj) 20 ml STK-MED ONCE .ROUTE Last administered on 08/05/17 17:58; Start 08/05/17 at 17:58; Stop 08/05/17 at 17:59; Status DC Colistin Sulfate (Coly-Mycin M Neb) 75 mg Q8HR NEB NEB Last administered on 08:25; Start 08/06/17 at 16:00; Stop 08/12/17 at 15:59; Status DC Furosemide (Lasix Liq) 40 mg ONCE ONCE NG Last administered on 08/08/17 12: 54; Start 08/08/17 at 12:15; Stop 08/08/17 at 12:16; Status DC Albuterol/ Ipratropium (Duoneb Neb) 1 ampule Q6HR NEB PRN NEB WHEEZING Last administered on 10/16/17 07:17; Start 08/10/17 at 14:00; Stop 10/25/17 at 08: 28; Status DC Lisinopril (Prinivil) 30 mg Q12HR PO Last administered on 08/24/17 21:00; Start 08/23/17 at 09:00; Stop 08/25/17 at 07:46; Status DC Lisinopril (Prinivil) 40 mg Q12HR PO Last administered on 09/15/17 20:54; Start 08/25/17 at 09:00; Stop 09/15/17 at 22:16; Status DC Amlodipine Besylate (Norvasc) 5 mg DAILY PO Last administered on 09/01/17at 09:24 ; Start 08/31/17 at 09:00; Stop 09/02/17 at 06:48; Status DC Amlodipine Besylate (Norvasc) 10 mg DAILY PO Last administered on 10/02/17at 08: 00; Start 09/02/17 at 09:00; Stop 10/03/17 at 11:55; Status DC Metoprolol Tartrate (Lopressor) 12.5 mg Q12HR PO Last administered on 09/06/17at 08:46; Start 09/05/17 at 21:00; Stop 10/03/17 at 11:55; Status DC Miscellaneous (Pill Splitter) 1 ea UNSCH PRN OTHER SEE LABEL COMMENTS; Start at 11:00 Trimethoprim/ Sulfamethoxazole (Bactrim 800-160 Mg/20 ml Liq) 20 ml Q12H PEG ; Start 09/09/17 at 20:00; Stop 09/09/17 at 20:00; Status DC Trimethoprim/ Sulfamethoxazole (Bactrim Ds 800-160 Mg) 1 tab Q12HR PEG Last administered on 09/29/17at 09:36; Start 09/09/17 at 21:00; Stop 09/29/17 at 22:01 ; Status DC Insulin Detemir (Levemir Inj) 12 units Q12HR SQ Last administered on 09/20/17at 20:49; Start 09/14/17 at 21:00; Stop 09/21/17 at 08:28; Status DC Lisinopril (Prinivil) 40 mg DAILY PO Last administered on 09/19/17at 09:39; Start 09/16/17 at 09:00; Stop 09/20/17 at 17:11; Status DC Sodium Polystyrene Sulfonate (Kayexalate Liq) 15 gm ONCE ONCE PO Last administered on 09/16/17at 11:01; Start 09/16/17 at 10:45; Stop 09/16/17 at 10:46 ; Status DC Acetaminophen (Tylenol) 500 mg Q6H PRN PEG Fever > 100.0F Last administered on 09/16/17at 16:36; Start 09/16/17 at 16:15; Stop 10/26/17 at 06:36; Status DC Dextrose 1,000 ml @ 75 mls/hr [id number] IV Last administered on 09/20/17at 11:09 ; Start 09/18/17 at 15:30; Stop 09/20/17 at 17:11; Status DC Lisinopril (Prinivil) 20 mg DAILY PO ; Start 09/21/17 at 09:00; Stop 09/21/17 at 23:55; Status DC Metoclopramide HCl (Reglan Inj) 10 mg ONCE ONCE IV PUSH Last administered on at 03:37; Start 09/21/17 at 03:15; Stop 09/21/17 at 03:16; Status DC Insulin Detemir (Levemir Inj) 12 units HS SQ Last administered on 09/26/17at 21: 00; Start 09/21/17 at 21:00; Stop 09/27/17 at 17:31; Status DC Calcium Gluconate 1 gm/Dextrose 110 ml @ 110 mls/hr ONCE ONCE IV Last administered on 09/21/17at 11:43; Start 09/21/17 at 11:15; Stop 09/21/17 at 12:14 ; Status DC Sodium Polystyrene Sulfonate (Kayexalate Liq) 15 gm QID PEG Last administered on 09/22/17at 09:30; Start 09/21/17 at 13:00; Stop 09/22/17 at 09:02; Status DC Insulin Human Regular (NovoLIN R INJ) 10 units ONCE ONCE IV PUSH Last administered on 09/21/17at 11:42; Start 09/21/17 at 11:30; Stop 09/21/17 at 11:31 ; Status DC Dextrose (D50w (Vial) Inj) 50 ml ONCE ONCE IV PUSH Last administered on at 11:42; Start 09/21/17 at 11:30; Stop 09/21/17 at 11:31; Status DC Albuterol Sulfate (Albuterol Concentrated Neb) 10 mg ONCE ONCE INH Last administered on 09/21/17at 11:30; Start 09/21/17 at 11:30; Stop 09/21/17 at 11:31 ; Status DC Sodium Chloride 500 ml @ 100 mls/hr Q5H IV Last administered on 09/21/17at 13: 38; Start 09/21/17 at 13:00; Stop 09/21/17 at 17:59; Status DC Sodium Chloride 1,000 ml @ 42 mls/hr [id number] IV Last administered on at 08:34; Start 09/21/17 at 21:00; Stop 09/24/17 at 08:24; Status DC Hydralazine HCl (Apresoline) 10 mg Q8HR PEG Last administered on 12/01/17at 06:40 ; Start 09/24/17 at 14:00 Hydralazine HCl (Apresoline) 10 mg ONCE ONCE PEG Last administered on at 11:49; Start 09/24/17 at 09:00; Stop 09/24/17 at 09:01; Status DC Cefepime HCl 2000 mg/Sodium Chloride 100 ml @ 200 mls/hr Q8H IV Last administered on 09/29/17at 05:35; Start 09/25/17 at 12:00; Stop 09/29/17 at 08:46 ; Status DC Sodium Polystyrene Sulfonate (Kayexalate Liq) 15 gm ONCE ONCE RECTAL Last administered on 09/26/17at 10:51; Start 09/26/17 at 09:15; Stop 09/26/17 at 09:16 ; Status DC Sodium Polystyrene Sulfonate (Kayexalate Liq) 15 gm ONCE ONCE PEG Last administered on 09/27/17at 18:11; Start 09/27/17 at 17:15; Stop 09/27/17 at 17:16 ; Status DC Insulin Detemir (Levemir Inj) 10 units BID SQ Last administered on 09/29/17at 09 :37; Start 09/27/17 at 21:00; Stop 09/29/17 at 15:14; Status DC Doxazosin Mesylate (Cardura) 1 mg DAILY PO Last administered on 10/02/17at 07:59 ; Start 09/28/17 at 10:00; Stop 10/03/17 at 11:55; Status DC Ceftolozane/ Tazobactam 1500 mg/Sodium Chloride 100 ml @ 100 mls/hr Q8H IV Last administered on 09/30/17at 01:51; Start 09/29/17 at 10:00; Stop 09/30/17 at 10:38; Status DC Lactobacillus Acidophilus (Lactinex) 1 tab Q12HR PO Last administered on at 09:08; Start 09/29/17 at 21:00; Stop 10/03/17 at 11:55; Status DC Insulin Human NPH (NovoLIN N INJ) 7 units TID SQ Last administered on at 18:16; Start 09/29/17 at 18:00; Stop 10/01/17 at 19:07; Status DC Acetylcysteine (Mucomyst 10% Neb) 2 ml Q6HR NEB NEB ; Start 09/29/17 at 16:00; Stop 09/29/17 at 16:21; Status DC Acetylcysteine (Mucomyst 10% Neb) 2 ml Q6HR NEB NEB Last administered on at 08:30; Start 09/29/17 at 14:30; Stop 10/03/17 at 14:29; Status DC Metoclopramide HCl (Reglan Inj) 10 mg ONCE ONCE IV PUSH Last administered on at 22:11; Start 09/29/17 at 21:30; Stop 09/29/17 at 21:31; Status DC Trimethoprim/ Sulfamethoxazole (Bactrim 800-160 Mg/20 ml Liq) 20 ml BID PEG Last administered on 10/03/17at 09:08; Start 09/29/17 at 22:02; Stop 10/03/17 at 18 :48; Status DC Colistin Sulfate (Coly-Mycin M Neb) 75 mg Q8HR NEB NEB Last administered on at 07:29; Start 09/30/17 at 16:00; Stop 10/21/17 at 15:59; Status DC Insulin Human NPH (NovoLIN N INJ) 10 units TID SQ Last administered on at 18:43; Start 10/02/17 at 09:00; Stop 10/07/17 at 12:30; Status DC Sodium Polystyrene Sulfonate (Kayexalate Liq) 15 gm BID PO Last administered on 10/03/17at 10:09; Start 10/03/17 at 09:00; Stop 10/03/17 at 11:55; Status DC Sodium Chloride 1,000 ml @ 100 mls/hr Q10H IV Last administered on 10/03/17 20 :26; Start 10/03/17 at 08:30; Stop 10/03/17 at 22:36; Status DC Levofloxacin/ Dextrose 100 ml @ 100 mls/hr Q24H IV Last administered on 11:46; Start 10/03/17 at 10:00; Stop 10/03/17 at 20:03; Status DC Amlodipine Besylate (Norvasc) 10 mg DAILY PEG Last administered on 12/01/17at 07: 53; Start 10/04/17 at 09:00 Calcium/Vitamin D (Oscal-D 250-125) 250 mg TID PEG Last administered on 17:46; Start 10/03/17 at 13:00 Cholecalciferol (Vitamin D3) 5,000 units DAILY PEG Last administered on 07:52; Start 10/04/17 at 09:00 Clonidine (Catapres) 0.1 mg Q6H PRN PEG SBP >160 Last administered on at 00:23; Start 10/03/17 at 12:30 Doxazosin Mesylate (Cardura) 1 mg DAILY PEG Last administered on 11/18/17at 09: 04; Start 10/04/17 at 09:00; Stop 11/22/17 at 17:42; Status DC Lactobacillus Acidophilus (Lactinex) 1 tab Q12HR PEG Last administered on 07:52; Start 10/03/17 at 21:00 Metoprolol Tartrate (Lopressor) 12.5 mg Q12HR PEG Last administered on at 19:28; Start 10/03/17 at 21:00; Stop 10/26/17 at 08:47; Status DC Sodium Polystyrene Sulfonate (Kayexalate Liq) 15 gm BID PEG Last administered on 10/03/17 21:00; Start 10/03/17 at 21:00; Stop 10/05/17 at 14:49; Status DC Polyethylene Glycol (Miralax) 17 gm DAILY PRN PEG Constipation; Start 10/03/17 at 12:00 Protein (Beneprotein Powder) 1 pack TID PRN G-TUBE Constipation; Start 10/03/17 at 12:00 Albuterol Sulfate (Albuterol Neb) 2.5 mg Q2HR NEB PRN NEB WHEEZING Last administered on 10/19/17at 22:09; Start 10/03/17 at 21:45 Dextrose 1,000 ml @ 30 mls/hr Q24H IV ; Start 10/03/17 at 22:45; Status Cancel Dextrose (D50w (Vial) Inj) 25 ml ONCE ONCE IV PUSH Last administered on at 22:42; Start 10/03/17 at 22:45; Stop 10/03/17 at 22:46; Status DC Furosemide (Lasix Inj) 40 mg ONCE ONCE IV PUSH Last administered on 10/03/17at 22:46; Start 10/03/17 at 22:45; Stop 10/03/17 at 22:46; Status DC Dextrose 500 ml @ 10 mls/hr Q24H IV Last administered on 10/04/17at 15:49; Start 10/03/17 at 23:00; Stop 10/05/17 at 14:49; Status DC Fentanyl Citrate (fentaNYL INJ) 100 mcg STK-MED ONCE .ROUTE ; Start 10/03/17 at 22:47; Stop 10/03/17 at 22:48; Status DC Fentanyl Citrate (fentaNYL INJ) 100 mcg NOW ONCE IV PUSH ; Start 10/03/17 at 23: 00; Stop 10/03/17 at 23:01; Status DC Fentanyl Citrate (fentaNYL INJ) 50 mcg ONCE ONCE IV PUSH Last administered on 10/03/17at 23:00; Start 10/03/17 at 23:00; Stop 10/03/17 at 23:10; Status DC Fentanyl Citrate (fentaNYL INJ) 50 mcg Q1H PRN IV PUSH SEDATION; Start 10/03/17 at 23:00; Stop 10/29/17 at 10:46; Status DC Chlorhexidine Gluconate (Peridex 0.12% Liq) 15 ml BID@08,20 MT Last administered on 10/31/17at 21:41; Start 10/04/17 at 08:00; Stop 11/01/17 at 11:43; Status DC Furosemide (Lasix Inj) 40 mg ONCE ONCE IV PUSH Last administered on 10/04/17at 05:52; Start 10/04/17 at 05:00; Stop 10/04/17 at 05:01; Status DC Furosemide (Lasix Inj) 40 mg Q6HR IV PUSH Last administered on 10/06/17 05:28; Start 10/04/17 at 12:00; Stop 10/06/17 at 11:00; Status DC Insulin Human NPH (NovoLIN N INJ) 5 units BID@08,17 SQ Last administered on 10/10at 08:05; Start 10/07/17 at 17:00; Stop 10/10/17 at 11:33; Status DC Insulin Detemir (Levemir Inj) 7 units Q12H SQ Last administered on 10/25/17at 23 :55; Start 10/08/17 at 12:00; Stop 10/26/17 at 06:36; Status DC Dextrose (D50w (Vial) Inj) 50 ml UNSCH PRN IV PUSH HYPOGLYCEMIA-SEE COMMENTS Last administered on 10/28/17at 17:42; Start 10/08/17 at 09:45; Stop 11/04/17 at 12 :34; Status DC Glucagon (Glucagon Inj) 1 mg UNSCH PRN OTHER HYPOGLYCEMIA-SEE COMMENTS Last administered on 10/14/17at 00:45; Start 10/08/17 at 09:45; Stop 11/04/17 at 12:34; Status DC Insulin Human Regular (NovoLIN R SUPPLEMENTAL SCALE) 1 Q6HR SQ Last administered on 11/04/17at 06:00; Start 10/08/17 at 12:00; Stop 11/04/17 at 12:27; Status DC Water (Free Water) 250 ml Q8HR G-TUBE Last administered on 10/20/17at 05:20; Start 10/18/17 at 14:00; Stop 10/20/17 at 10:15; Status DC Water (Free Water) VOLUME OF WATER: ( 200 ) ML Q6HR G-TUBE Last administered on 10/27/17at 05:49; Start 10/20/17 at 12:00; Stop 10/27/17 at 10:02; Status DC Albuterol/ Ipratropium (Duoneb Neb) 1 ampule Q6HR NEB NEB Last administered on 10/29/17at 08:34; Start 10/25/17 at 10:00; Stop 10/29/17 at 09:59; Status DC Insulin Detemir (Levemir Inj) 8 units Q12H SQ Last administered on 12/01/17at 00: 22; Start 10/26/17 at 12:00 Acetaminophen (Tylenol 650 Mg/ 20 ml Liq) 650 mg Q6H PRN PEG fever; Start 10/26 at 06:45 Oxycodone HCl (Roxicodone Intensol Liq) 5 mg Q6H PRN PO pain 6-10; Start at 11:00 Iohexol (Omnipaque 350 Inj) 75 ml STK-MED ONCE IVCONTRAST Last administered on 11/01/17at 16:59; Start 11/01/17 at 16:59; Stop 11/01/17 at 17:00; Status DC Dextrose (D50w (Vial) Inj) 50 ml UNSCH PRN IV PUSH HYPOGLYCEMIA-SEE COMMENTS; Start 11/04/17 at 12:30 Glucagon (Glucagon Inj) 1 mg UNSCH PRN OTHER HYPOGLYCEMIA-SEE COMMENTS; Start 11/04/17 at 12:30 Insulin Human Regular (NovoLIN R SUPPLEMENTAL SCALE) 1 Q6H SQ Last administered on 12/01/17at 00:22; Start 11/04/17 at 12:30 Dextrose (D50w (Vial) Inj) 25 ml ONCE ONCE IV PUSH Last administered on at 12:54; Start 11/04/17 at 12:30; Stop 11/04/17 at 12:35; Status DC Metoclopramide HCl (Reglan Inj) 10 mg Q8HR IV PUSH Last administered on at 05:41; Start 11/05/17 at 22:00; Stop 11/07/17 at 13:32; Status DC Amoxicillin/ Clavulanate Potassium (Augmentin 600 Mg/5 ml Liq) 600 mg Q12H PO Last administered on 11/13/17at 23:56; Start 11/07/17 at 12:00; Stop 11/14/17 at 11:59; Status DC Metoclopramide HCl (Reglan Liq) 10 mg Q8HR PO Last administered on 11/18/17at 14:08; Start 11/07/17 at 14:30; Status Future Hold Albuterol/ Ipratropium (Duoneb Neb) 1 ampule Q6HR NEB NEB Last administered on 11/12/17at 09:08; Start 11/08/17 at 10:30; Stop 11/12/17 at 10:29; Status DC Cholestyramine Resin (Questran Light Pkt) 4 gm BID PRN PEG DIARRHEA Last administered on 11/25/17at 09:59; Start 11/12/17 at 13:30 Furosemide (Lasix Inj) 20 mg BID@09,18 IV PUSH Last administered on 11/14/17at 08:32; Start 11/13/17 at 17:00; Stop 11/14/17 at 14:49; Status DC Furosemide (Lasix Inj) 20 mg DAILY IV PUSH Last administered on 11/15/17at 09:00 ; Start 11/15/17 at 09:00; Stop 11/16/17 at 08:59; Status DC Sodium Chloride (NS Flush) 2 ml BID IV FLUSH ; Start 11/16/17 at 10:45; Status Cancel Sodium Chloride (NS Flush) 2 ml BID IV FLUSH Last administered on 11/21/17at 09: 00; Start 11/16/17 at 21:00; Stop 11/21/17 at 20:44; Status DC Albuterol Sulfate (Proventil) 2 mg ONCE ONCE PO Last administered on at 17:16; Start 11/18/17 at 15:30; Stop 11/18/17 at 15:31; Status DC Sodium Chloride 250 ml @ 250 mls/hr BOLUS ONCE IV Last administered on at 15:26; Start 11/18/17 at 14:30; Stop 11/18/17 at 15:29; Status DC Insulin Human Regular (NovoLIN R INJ) 10 units ONCE ONCE SQ Last administered on 11/18/17at 18:23; Start 11/18/17 at 18:00; Stop 11/18/17 at 18:18; Status DC Dextrose (D50w (Syr) Inj) 12.5 ml ONCE ONCE IV PUSH Last administered on 18:22; Start 11/18/17 at 18:00; Stop 11/18/17 at 18:18; Status DC Furosemide (Lasix) 20 mg DAILY PO Last administered on 12/01/17at 07:52; Start at 09:00 Lisinopril (Prinivil) 5 mg ONCE ONCE PEG Last administered on 11/22/17at 17:56 ; Start 11/22/17 at 17:45; Stop 11/22/17 at 17:49; Status DC Lisinopril (Prinivil) 5 mg DAILY PEG Last administered on 12/01/17at 07:52; Start 11/23/17 at 09:00 Diphenoxylate HCl/ Atropine (Lomotil 2.5-0.025 Mg Liq) 5 ml Q6H PRN PO LOOSE STOOLS Last administered on 11/30/17at 08:44; Start 11/25/17 at 13:15 A/P Problem List: (1) Acute ischemic left middle cerebral artery (MCA) stroke ICD Code: I63.512 - Cerebral infarction due to unspecified occlusion or stenosis of left middle cerebral artery Status: Acute (2) Acute respiratory failure ICD Code: J96.00 - Acute respiratory failure, unspecified whether with hypoxia or hypercapnia (3) Right hemiplegia ICD Code: G81.91 - Hemiplegia, unspecified affecting right dominant side Status: Acute (4) Sacral decubitus ulcer ICD Code: L89.159 - Pressure ulcer of sacral region, unspecified stage Status: Chronic (5) HCAP (healthcare-associated pneumonia) ICD Code: J18.9 - Pneumonia, unspecified organism Status: Resolved (6) 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 She underwent ORIF on 04/21/17 and on 04/24 a stroke alert was called as she was found to have right hemiparesis with left gaze. She has a poor prognosis based on her lack of overall recovery over the last 6+ months. Patient has no acute issues, no change in care plan. Shortness of breath/desaturation secondary to pulmonary edema-chest x-ray done , personally reviewed, has evidence of pulmonary edema, continue Lasix, monitor BMP every few weeks. Urinary retention No leukocytosis U/A with large leuk esterase but many squamous cells Culture grew Aerococcus, finished Augmentin November 07 - November 14. Leavitt replaced Elevated D-dimer Ordered 10/31 for increasing FiO2 demand Since D-dimer elevated, CTA chest obtained to r/o PE which was negative Likely elevated in light of chronic illness RUE U/S negative for DVT - elevate R arm Left MCA stroke 5.5 mm of [id number] subfalcine herniation, diagnosed 04/24. Was not a candidate for thrombolysis at that time. Increasing edema seen on repeat CT 04/28 with a reduction in midline shift on another repeat on 04/30 Neurologic condition remained poor and she underwent trach 05/15/17 and PEG Persistent right-sided hemiparesis. Previously seen by neurology, signed off Previously seen by neurosurgery, signed off Continue daily ASA Patient has been attempting to pull tracheostomy out yesterday Hypertension / CHF Amlodipine 10 mg po daily, Doxazosin 1 mg peg daily, hydralazine 10 mg per per peg q8 hours. Clonidine 0.1 mg q6h prn Echo 10/06/17 LVSF EF = 25-30%. Chronic Tracheostomy /respiratory failure 10/22/2017 Pulmonary toilet, trach care Duo nebs as needed Pulm following, appreciate assistance Large left pneumothorax Resolved Chest tube placed 05/07, discontinued 05/12/17 Hepatitis C LFTs normalized Negative genotype/viral load Diabetes mellitus SSI Novolin R High-dose scale Levemir insulin 8u Q12 FEN PEG tube feeding with Glucerna 1.5 goal 45 cc/hr, per nutrition recommendations Loose Stools patient has been checked for Cdiff on multiple occasions, most recently 11/04 Cdiff negative already on lactinex bid Continue Questran, start Lomotil. Anal Fissure continue wound care DVT prophylaxis Heparin Discharge Planning Aggressive therapy, full code per palliative. Needs placement Problem Qualifiers (1) Acute respiratory failure: Qualified Codes: J96.00 - Acute respiratory failure, unspecified whether with hypoxia or hypercapnia (2) Sacral decubitus ulcer: Qualified Codes: L89.152 - Pressure ulcer of sacral region, stage 2 (3) Chronic respiratory failure: Qualified Codes: J96.11 - Chronic respiratory failure with hypoxia Ricardo Shafer DO Dec 01, 2017 09:31
--- NOTE | 2017-12-01 19:34 | HHI.PR ---
Subjective Remarks No events overnight. Patient is on TP's with 40% FIO2. . Tolerating tube feeds. Awake, looks around Tolerates TF No fever No new complaint Objective Vital Signs Vital Signs Date Time Temp Pulse Resp B/P (MAP) Pulse Ox O2 Delivery O2 Flow Rate FiO2 12/01/17 16:00 98.3 66 16 119/58 (78) 95 12/01/17 12:00 98.3 44 16 116/53 (74) 96 12/01/17 08:32 98 T-piece 6.00 28 12/01/17 08:05 98.2 69 16 131/59 (83) 99 12/01/17 07:50 98 T-Piece 5.00 28 Humidified 12/01/17 04:00 99.2 68 14 132/65 (87) 94 12/01/17 00:00 98.7 71 16 141/69 (93) 96 11/30/17 21:50 98 T-piece 5.00 28 11/30/17 20:00 99 T-Piece 5.00 28 11/30/17 20:00 98.5 68 14 133/67 (89) 98 I/O 11/30/17 11/30/17 11/30/17 12/01/17 12/01/17 12/01/17 07:00 15:00 23:00 07:00 15:00 23:00 Intake Total 1676 ml 975 ml 957 ml 1170 ml Output Total 500 ml 700 ml 800 ml 850 ml Balance 1176 ml 275 ml 157 ml 320 ml Tube Feeding 936 ml 495 ml 477 ml 450 ml Other 740 ml 480 ml 480 ml 720 ml Output Urine Total 500 ml 700 ml 800 ml 850 ml Bladder Scan Volume Amount 1000 ml 1000 ml 1000 ml # Bowel Movements 1 1 1 0 Objective Remarks GENERAL: Elderly female,NAD SKIN: Warm and dry. HEAD: Normocephalic. EYES: No scleral icterus. No injection or drainage. NECK: Supple, trachea midline. No JVD or lymphadenopathy. + trach CARDIOVASCULAR: Regular rate and rhythm without murmurs, gallops, or rubs. RESPIRATORY: Breath sounds equal bilaterally. No accessory muscle use. GASTROINTESTINAL: Abdomen soft, non-tender, nondistended. MUSCULOSKELETAL: No cyanosis, or edema. BACK: Nontender without obvious deformity. No CVA tenderness. A/P Assessment and Plan Chronic resp failure, ,S/P Trach CVA Pneumonia Calcified Granuloma LLL Pseudomonas Tracheobronchitis, PLAN: Continue with TP's, keep sats >92% Bronchodilators, Pulm toilet, trach care CT chest 11/01: No PE,adenopathy in the right paratracheal, subcarinal and hilar regions with numerous prominent lymph nodes seen. Continue with abx ( Augmentin)monitor for signs of infections ( fever, WBC) follow up on urine cx Continue with tube feeds- Glucerna 1.5 @ 45ml/hr GI/DVT prophylaxis Continue treatment plan. LAI RN at [facility] from pulm standpoint Chris Rizo MD Dec 01, 2017 19:34
[2017-12-02] VITALS (9 sets, daily range): BP systolic 131–169; BP diastolic 62–78; PULSE 59–76; RESP 16–20; TEMP 96.9–100; O2SAT 93–99
[2017-12-02] MEDS: INSULIN DETEMIR 100 UNITS/ML VIAL SQ SCH ×3 (00:16→23:56)
[2017-12-02] MEDS: INSULIN NovoLIN REGULAR SUPPLEMENTAL SCALE SQ SCH ×5 (00:22→23:56)
[2017-12-02] MEDS: HEPARIN SODIUM - SQ 10,000 UNITS/ML VIAL SQ SCH ×3 (05:30→22:04)
[2017-12-02] MEDS: hydrALAZINE HCL 10 MG TAB PEG SCH ×3 (05:30→22:04)
[2017-12-02] MEDS: ARTIFICIAL TEARS OPTH SOLN 15 ML BTL EACH EYE SCH ×3 (05:31→22:05)
[2017-12-02] MEDS: LACTOBACILLUS ACIDOPHILUS TAB PEG SCH ×2 (09:13→22:04)
[2017-12-02] MEDS: ASPIRIN 325 MG TAB DOBHOFF SCH (09:13)
[2017-12-02] MEDS: LANSOPRAZOLE SOLUTAB 30 MG TAB NG SCH (09:13)
[2017-12-02] MEDS: FUROSEMIDE 20 MG TAB PO SCH (09:13)
[2017-12-02] MEDS: CHOLECALCIFEROL (VIT D3) 5000 UNIT CAP PEG SCH (09:13)
[2017-12-02] MEDS: CALCIUM/VITAMIN D 250 MG/125 U TAB PEG SCH ×3 (09:14→17:08)
[2017-12-02] MEDS: LISINOPRIL 5 MG TAB PEG SCH (09:14)
[2017-12-02] MEDS: DIPHENOXYLATE/ATROPINE 2.5 MG/0.025 MG/5 ML CUP PO PRN (11:21)
--- NOTE | 2017-12-02 18:30 | HHI.PR ---
Subjective Remarks No events overnight. Patient is on TP's with 40% FIO2. . Tolerating tube feeds. Tolerates TF No fever No new complaint Objective Vital Signs Vital Signs Date Time Temp Pulse Resp B/P (MAP) Pulse Ox O2 Delivery O2 Flow Rate FiO2 12/02/17 16:00 96.9 59 16 145/73 (97) 99 12/02/17 12:00 97.9 63 20 164/76 (105) 98 12/02/17 08:46 94 T-piece 35 12/02/17 08:00 99.0 60 16 137/69 (91) 93 12/02/17 07:00 93 T-Piece 6.00 28 12/02/17 04:00 100.0 60 20 165/74 (104) 96 12/02/17 00:48 94 T-piece 35 12/02/17 00:00 99.0 68 20 131/62 (85) 94 12/01/17 20:53 97 T-piece 28 12/01/17 20:00 98.3 57 20 112/56 (74) 97 12/01/17 20:00 T-Piece 6.00 28 Humidified I/O 12/01/17 12/01/17 12/01/17 12/02/17 12/02/17 12/02/17 06:59 14:59 22:59 06:59 14:59 22:59 Intake Total 957 ml 1170 ml 1580 ml 1094 ml Output Total 800 ml 1200 ml 275 ml 750 ml Balance 157 ml -30 ml 1305 ml 344 ml Tube Feeding 477 ml 450 ml 900 ml 614 ml Tube Irrigant 200 ml Other 480 ml 720 ml 480 ml 480 ml Output Urine Total 800 ml 1200 ml 275 ml 750 ml Bladder Scan Volume Amount 1000 ml # Bowel Movements 1 0 1 Objective Remarks GENERAL: Elderly female,NAD SKIN: Warm and dry. HEAD: Normocephalic. EYES: No scleral icterus. No injection or drainage. NECK: Supple, trachea midline. No JVD or lymphadenopathy. + trach CARDIOVASCULAR: Regular rate and rhythm without murmurs, gallops, or rubs. RESPIRATORY: Breath sounds equal bilaterally. No accessory muscle use. GASTROINTESTINAL: Abdomen soft, non-tender, nondistended. MUSCULOSKELETAL: No cyanosis, or edema. BACK: Nontender without obvious deformity. No CVA tenderness. A/P Assessment and Plan Chronic resp failure, ,S/P Trach CVA Pneumonia Calcified Granuloma LLL Pseudomonas Tracheobronchitis, PLAN: Continue with TP's, keep sats >92% Bronchodilators, Pulm toilet, trach care CT chest 11/01: No PE,adenopathy in the right paratracheal, subcarinal and hilar regions with numerous prominent lymph nodes seen. Cont TF- GI/DVT prophylaxis Continue treatment plan. DW RN at [facility] from pulm standpoint Chris Rizo MD Dec 02, 2017 18:30
--- NOTE | 2017-12-02 19:09 | HHI.PR ---
Subjective Remarks as per RN patient having episodes of bradycardia into the 30's and staying there. Patient had a low grade temp with a Tmax of 100.0 earlier at 4 am. patient is non verbal, unable to communicate. Objective Vitals Vital Signs Date Time Temp Pulse Resp B/P (MAP) Pulse Ox O2 Delivery O2 Flow Rate FiO2 12/02/17 16:00 96.9 59 16 145/73 (97) 99 12/02/17 12:00 97.9 63 20 164/76 (105) 98 12/02/17 08:46 94 T-piece 35 12/02/17 08:00 99.0 60 16 137/69 (91) 93 12/02/17 07:00 93 T-Piece 6.00 28 12/02/17 04:00 100.0 60 20 165/74 (104) 96 12/02/17 00:48 94 T-piece 35 12/02/17 00:00 99.0 68 20 131/62 (85) 94 12/01/17 20:53 97 T-piece 28 12/01/17 20:00 98.3 57 20 112/56 (74) 97 12/01/17 20:00 T-Piece 6.00 28 Humidified I/O 12/01/17 12/01/17 12/01/17 12/02/17 12/02/17 12/02/17 07:00 15:00 23:00 07:00 15:00 23:00 Intake Total 957 ml 1170 ml 1580 ml 1094 ml Output Total 800 ml 1200 ml 275 ml 750 ml Balance 157 ml -30 ml 1305 ml 344 ml Tube Feeding 477 ml 450 ml 900 ml 614 ml Tube Irrigant 200 ml Other 480 ml 720 ml 480 ml 480 ml Output Urine Total 800 ml 1200 ml 275 ml 750 ml Bladder Scan Volume Amount 1000 ml # Bowel Movements 1 0 1 Imaging Last Impressions Chest X-Ray 12/02/17 0000 Signed Impressions: Service Date/Time: Saturday, December 02, 2017 19:12 - CONCLUSION: 1. Bilateral hazy air space disease overall improved from November 13. Cardiomegaly. Tracheostomy present. Jaime Velasquez MD Upper Extremity Ultrasound 11/04/17 0000 Signed Impressions: Service Date/Time: Saturday, November 04, 2017 09:57 - CONCLUSION: No thrombus observed. Subcutaneous edema noted. Deangelo Wren Jr., MD Abdomen X-Ray 11/04/17 0000 Signed Impressions: Service Date/Time: Saturday, November 04, 2017 11:58 - CONCLUSION: Gaseous distention of bowel loops could be ileus but unchanged. Benja Ramsey MD CT Angiography 11/01/17 0000 Signed Impressions: Service Date/Time: Wednesday, November 01, 2017 16:47 - CONCLUSION: No evidence for pulmonary embolism. Please see above. Choco Mustafa MD Thoracentesis 08/05/17 1535 Signed Impressions: Service Date/Time: Saturday, August 05, 2017 16:08 - CONCLUSION: Uncomplicated CT-guided thoracentesis. Sage Adler MD Chest Ultrasound 08/02/17 0000 Signed Impressions: Service Date/Time: Tuesday, August 01, 2017 22:06 - CONCLUSION: 1. Moderate right pleural effusion, as above. Alejo De La Vega MD Hip and Pelvis X-Ray 07/09/17 0000 Signed Impressions: Service Date/Time: Sunday, July 09, 2017 14:04 - CONCLUSION: Anatomic alignment. Ricardo Middleton MD FACR Liver Ultrasound 06/19/17 0000 Signed Impressions: Service Date/Time: June 13:20 - CONCLUSION: 1. Mildly increased echotexture of the liver characteristic of hepatic steatosis. 2. Gallbladder sludge. Obdulio Sam MD Head CT 05/15/17 0000 Signed Impressions: Service Date/Time: May 19:59 - CONCLUSION: 1. 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 2. No bleed or new/acute infarct. Obdulio Simms MD Gall Bladder Ultrasound 05/08/17 0000 Signed Impressions: Service Date/Time: May 08:23 - CONCLUSION: Focally unremarkable appearance of the gallbladder Obdulio Chun MD Abdomen/Pelvis CT 05/07/17 0000 Signed Impressions: Service Date/Time: Sunday, May 07, 2017 13:23 - CONCLUSION: 1. Large left pneumothorax. 2. Bilateral lower lobe consolidation and bilateral moderate size pleural effusions. 3. Significant soft tissue thickening of the right lateral chest wall and left gluteus muscle. 4. Mild ascites. The findings were called to Dr. Carney. Deagnelo Zamora MD Chest CT 04/30/17 0000 Signed Impressions: Service Date/Time: Sunday, April 30, 2017 09:20 - CONCLUSION: 1. Bilateral pulmonary infiltrates more pronounced within the lower lobes with tiny bilateral pleural effusions. Material seen filling the lower lobe bronchi bilaterally either related to purulent material or perhaps mucus plugging. Deangelo Wren Jr., MD Carotid Artery Ultrasound 04/24/17 0000 Signed Impressions: Service Date/Time: April 09:45 - CONCLUSION: 1. No hemodynamically significant carotid artery stenosis. Arnie Middleton MD Hip X-Ray 04/21/17 0000 Signed Impressions: Service Date/Time: Friday, April 21, 2017 11:36 - CONCLUSION: Fluoroscopic images during placement of intramedullary siomara left femur. Benja Ramsey MD Objective Remarks GENERAL: Unresponsive to verbal stimuli, opens eyes and tracks when physically stimulated. SKIN: Warm and dry. HEAD: Normocephalic. EYES: No scleral icterus. No injection or drainage. NECK: Supple, trachea midline. No JVD or lymphadenopathy. T piece in place, no redness over trach insertion site. CARDIOVASCULAR: Regular rate and rhythm without murmurs, gallops, or rubs. RESPIRATORY: Clear to auscultation BL. NO rhonchi or rales auscultated. GASTROINTESTINAL: Abdomen soft, non-tender, nondistended. MUSCULOSKELETAL: No cyanosis, or edema. BACK: Nontender without obvious deformity. No CVA tenderness. Neuro: Awake and alert, does not follow commands. Nonverbal. Procedures PEG tube trach 05/15/17 and PEG 05/16/17 A/P Problem List: (1) Acute ischemic left middle cerebral artery (MCA) stroke ICD Code: I63.512 - Cerebral infarction due to unspecified occlusion or stenosis of left middle cerebral artery Status: Acute (2) Acute respiratory failure ICD Code: J96.00 - Acute respiratory failure, unspecified whether with hypoxia or hypercapnia (3) Right hemiplegia ICD Code: G81.91 - Hemiplegia, unspecified affecting right dominant side Status: Acute (4) Sacral decubitus ulcer ICD Code: L89.159 - Pressure ulcer of sacral region, unspecified stage Status: Chronic (5) HCAP (healthcare-associated pneumonia) ICD Code: J18.9 - Pneumonia, unspecified organism Status: Resolved (6) 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 She underwent ORIF on 04/21/17 and on 04/24 a stroke alert was called as she was found to have right hemiparesis with left gaze. She has a poor prognosis based on her lack of overall recovery over the last 6+ months. Patient has no acute issues, no change in care plan. Shortness of breath/desaturation secondary to pulmonary edema-chest x-ray done , evidence of pulmonary edema, continue Lasix, monitor BMP every few weeks. Urinary retention No leukocytosis U/A with large leuk esterase but many squamous cells Culture grew Aerococcus, finished Augmentin November 07 - November 14. Leavitt replaced Elevated D-dimer Ordered 10/31 for increasing FiO2 demand Since D-dimer elevated, CTA chest obtained to r/o PE which was negative Likely elevated in light of chronic illness RUE U/S negative for DVT - elevate R arm Left MCA stroke 5.5 mm of [id number] subfalcine herniation, diagnosed 04/24. Was not a candidate for thrombolysis at that time. Increasing edema seen on repeat CT 04/28 with a reduction in midline shift on another repeat on 04/30 Neurologic condition remained poor and she underwent trach 05/15/17 and PEG Persistent right-sided hemiparesis. Previously seen by neurology, signed off Previously seen by neurosurgery, signed off Continue daily ASA Patient has been attempting to pull tracheostomy out yesterday Hypertension / CHF Amlodipine 10 mg po daily, Doxazosin 1 mg peg daily, hydralazine 10 mg per per peg q8 hours. Clonidine 0.1 mg q6h prn Echo 10/06/17 LVSF EF = 25-30%. Chronic Tracheostomy /respiratory failure 10/22/2017 Pulmonary toilet, trach care Duo nebs as needed Pulm following, appreciate assistance Large left pneumothorax Resolved Chest tube placed 05/07, discontinued 05/12/17 Hepatitis C LFTs normalized Negative genotype/viral load Diabetes mellitus SSI Novolin R High-dose scale Levemir insulin 8u Q12 FEN PEG tube feeding with Glucerna 1.5 goal 45 cc/hr, per nutrition recommendations Loose Stools patient has been checked for Cdiff on multiple occasions, most recently 11/04 Cdiff negative already on lactinex bid Continue Questran, start Lomotil. Anal Fissure continue wound care Bradycardia Episodes of bradycardia reported. Place on telemetry. EKG ordered earlier but still not done. Check BMP and magnesium to look for electrolyte abnormalities. Reviewed medications and the patient is not on any medications that would cause bradycardia. If bradycardia persists will consult cardiology. Fever Temp of 100.0. Check urinalysis and CXR. Last CXR on 11/13 showed cardiomegaly with worsening pulmonary edema pattern and a probable trace left pleural effusion. Discussed with RN, if patient has persistent fevers then will obtain blood cultures. DVT prophylaxis Heparin Discharge Planning Very poor prognosis. Appreciate palliative care efforts. Problem Qualifiers (1) Acute respiratory failure: Qualified Codes: J96.00 - Acute respiratory failure, unspecified whether with hypoxia or hypercapnia (2) Sacral decubitus ulcer: Qualified Codes: L89.152 - Pressure ulcer of sacral region, stage 2 (3) Chronic respiratory failure: Qualified Codes: J96.11 - Chronic respiratory failure with hypoxia Aleksandar Alford MD Dec 02, 2017 19:09
--- NOTE | 2017-12-02 20:12 | RADRPT ---
EXAM DATE/TIME: 12/02/2017 19:12 [facility] COMPARISON: CHEST SINGLE AP, November 13, 2017, 15:36. INDICATIONS : Fever. MEDICAL HISTORY : Stroke. Hypertension. Diabetes mellitus type 2. SURGICAL HISTORY : None. ENCOUNTER: Subsequent ACUITY: 1 day PAIN SCORE: Non-responsive. LOCATION: Bilateral chest FINDINGS: A single view of the chest demonstrates tracheostomy in good position. Bilateral mostly basilar airsp luis manuel disease. Cardiomegaly. No pneumothorax. CONCLUSION: 1. Bilateral hazy air space disease overall improved from November 13. Cardiomegaly. Tracheostomy mariann Velasquez MD on December 02, 2017 at 20:08 Board Certified Radiologist. This report was verified electronically.
[2017-12-02 20:38] LABS: BACTERIA, URINE RARE /hpf; BILIRUBIN, URINE NEG (NEG); BLOOD, URINE SMALL (NEG); GLUCOSE,URINE NEG (NEG); HYALINE CAST, URINE 6 /lpf (RARE); KETONE, URINE NEG (NEG); NITRITE,URINE NEG (NEG); SQUAMOUS EPITHELIAL CELL URINE 4 /hpf (0-5); URINE COLOR LIGHT-YELLOW (YELLW/STRAW); URINE LEUKOCYTE ESTERASE LARGE (NEG); WHITE BLOOD CELL CLUMPS MANY
[2017-12-02 20:38] LABS: AUTOMATED NEUTROPHIL # 6.6 TH/MM3 (1.8-7.7); BASOPHIL # 0.1 TH/MM3 (0-0.2); EOSINOPHIL # 0.3 TH/MM3 (0-0.4); HEMATOCRIT 31.3 % (35.0-46.0); HEMOGLOBIN 10.9 GM/DL (11.6-15.3); LYMPH % 24.8 % (9.0-44.0); LYMPHOCYTE # 2.6 TH/MM3 (1.0-4.8); MEAN CELL VOLUME 98.4 FL (80.0-100.0); MEAN CORPUSCULAR HEMOGLOBIN 34.2 PG (27.0-34.0); MEAN CORPUSCULAR HGB CONC 34.7 % (32.0-36.0); MEAN PLATELET VOLUME 9.7 FL (7.0-11.0); MONO % 7.6 % (0.0-8.0); MONOCYTE # 0.8 TH/MM3 (0-0.9); NEUT % 63.6 % (16.0-70.0); PLATELET COUNT 294 TH/MM3 (150-450); RED BLOOD COUNT 3.18 MIL/MM3 (4.00-5.30); RED CELL DISTRIBUTION WIDTH 14.7 % (11.6-17.2); WHITE BLOOD COUNT 10.3 TH/MM3 (4.0-11.0)
[2017-12-02 20:43] LABS: ALBUMIN 2.8 GM/DL (3.4-5.0); BICARBONATE 32.8 MEQ/L (21.0-32.0); BLOOD UREA NITROGEN 35 MG/DL (7-18); CALCIUM 9.2 MG/DL (8.5-10.1); CHLORIDE 101 MEQ/L (98-107); CREATININE 0.59 MG/DL (0.50-1.00); GLOMERULAR FILTRATION RATE 99 ML/MIN (>89); GLUCOSE,RANDOM 143 MG/DL (74-106); INTERNATIONAL NORMALIZED RATIO 1.1 RATIO; PROTHROMBIN TIME - PATIENT 10.7 SEC (9.8-11.6); SODIUM (NA) 139 MEQ/L (136-145)
[2017-12-02 20:44] LABS: ALT (GPT) 27 U/L (10-53)
[2017-12-02 20:52] LABS: ALKALINE PHOSPHATASE 149 U/L (45-117); AST (GOT) 28 U/L (15-37); TOTAL BILIRUBIN ADULT 0.2 MG/DL (0.2-1.0); TOTAL PROTEIN 7.2 GM/DL (6.4-8.2)
[2017-12-03] VITALS (10 sets, daily range): BP systolic 140–161; BP diastolic 73–77; PULSE 60–99; RESP 16–20; TEMP 97.5–98.3; O2SAT 95–100
[2017-12-03] MEDS: ARTIFICIAL TEARS OPTH SOLN 15 ML BTL EACH EYE SCH ×3 (05:58→21:51)
[2017-12-03] MEDS: hydrALAZINE HCL 10 MG TAB PEG SCH ×3 (05:58→21:50)
[2017-12-03] MEDS: HEPARIN SODIUM - SQ 10,000 UNITS/ML VIAL SQ SCH ×3 (05:59→21:50)
[2017-12-03] MEDS: INSULIN NovoLIN REGULAR SUPPLEMENTAL SCALE SQ SCH ×3 (06:37→18:03)
--- NOTE | 2017-12-03 08:03 | EKG ---
Date Performed: 12/02/2017 Time Performed: 19:16:47 PTAGE: 77 years EKG: Sinus rhythm MODERATE T-WAVE ABNORMALITY, CONSIDER LATERAL ISCHEMIA ABNORMAL ECG PREVIOUS TRACING : 11/18/2017 15.42 DOCTOR: Elliott Lee Interpretating Date/Time 12/03/2017 08:02:05
[2017-12-03] MEDS: ASPIRIN 325 MG TAB DOBHOFF SCH (09:51)
[2017-12-03] MEDS: LANSOPRAZOLE SOLUTAB 30 MG TAB NG SCH (09:51)
[2017-12-03] MEDS: LISINOPRIL 5 MG TAB PEG SCH (09:52)
[2017-12-03] MEDS: CHOLECALCIFEROL (VIT D3) 5000 UNIT CAP PEG SCH (09:52)
[2017-12-03] MEDS: CALCIUM/VITAMIN D 250 MG/125 U TAB PEG SCH ×3 (09:52→18:03)
[2017-12-03] MEDS: LACTOBACILLUS ACIDOPHILUS TAB PEG SCH ×2 (09:52→21:50)
[2017-12-03] MEDS: FUROSEMIDE 20 MG TAB PO SCH (10:34)
[2017-12-03] MEDS: INSULIN DETEMIR 100 UNITS/ML VIAL SQ SCH (13:12)
[2017-12-03] MEDS: DIPHENOXYLATE/ATROPINE 2.5 MG/0.025 MG/5 ML CUP PO PRN (15:01)
--- NOTE | 2017-12-03 17:02 | HHI.PR ---
Subjective Remarks As per RN the heart rate has been more stable, however the patient had one episode of bradycardia into the 30s which was asymptomatic and the patient's heart rate recovered within minutes. The patient is afebrile. Patient is nonverbal. As per RN the patient tries to pull her trach off her neck. Blood pressure seems to be elevated into the 160s. Objective Vitals Vital Signs Date Time Temp Pulse Resp B/P (MAP) Pulse Ox O2 Delivery O2 Flow Rate FiO2 12/03/17 13:27 97 T-piece 6.00 28 12/03/17 12:00 98.3 99 20 161/76 (104) 99 12/03/17 08:00 98.0 78 18 161/76 (104) 97 12/03/17 07:00 97 T-Piece 6.00 28 12/03/17 04:00 98.3 77 16 148/73 (98) 96 12/03/17 04:00 77 12/03/17 00:00 82 12/03/17 00:00 T-Piece 6.00 28 12/03/17 00:00 98.3 82 16 149/75 (99) 95 12/02/17 20:00 98.4 76 16 169/78 (108) 96 12/02/17 20:00 T-Piece 6.00 28 I/O 12/02/17 12/02/17 12/02/17 12/03/17 12/03/17 12/03/17 07:00 15:00 23:00 07:00 15:00 23:00 Intake Total 1580 ml 1094 ml 1222 ml Output Total 275 ml 750 ml 1200 ml Balance 1305 ml 344 ml 22 ml Tube Feeding 900 ml 614 ml 479 ml Tube Irrigant 200 ml Other 480 ml 480 ml 743 ml Output Urine Total 275 ml 750 ml 1200 ml # Bowel Movements 1 Result Diagram: 12/02/17195712/02/171957 Imaging Last 72 hours Impressions Chest X-Ray 12/02/17 0000 Signed Impressions: Service Date/Time: Saturday, December 02, 2017 19:12 - CONCLUSION: 1. Bilateral hazy air space disease overall improved from November 13. Cardiomegaly. Tracheostomy present. Jaime Velasquez MD Objective Remarks GENERAL: Unresponsive to verbal stimuli, opens eyes and tracks when physically stimulated. SKIN: Warm and dry. HEAD: Normocephalic. EYES: No scleral icterus. No injection or drainage. NECK: Supple, trachea midline. No JVD or lymphadenopathy. T piece in place, no redness over trach insertion site. CARDIOVASCULAR: Regular rate and rhythm without murmurs, gallops, or rubs. RESPIRATORY: Clear to auscultation BL. NO rhonchi or rales auscultated. GASTROINTESTINAL: Abdomen soft, non-tender, nondistended. MUSCULOSKELETAL: No cyanosis, or edema. BACK: Nontender without obvious deformity. No CVA tenderness. Neuro: Awake and alert, does not follow commands. Nonverbal. Procedures PEG tube trach 05/15/17 and PEG 05/16/17 Medications and IVs Current Medications Medications (Trade) Dose Ordered Sig/Zeferino Route Start Time Stop Time Status Last Admin (Narcan Inj) 0.4 mg UNSCH PRN IV 04/20/17 17:15 (Aspirin) 325 mg DAILY DOBHOFF 04/27/17 09:00 12/03/17 09:51 (Prevacid Odt) 30 mg DAILY NG 05/08/17 09:00 12/03/17 09:51 (Tears Naturale Opth Soln) 1 drop Q8HR EACH EYE 06/12/17 07:15 12/03/17 14:47 (Nitroglycerin 2% Oint) 2 inch Q6H PRN TOPICAL 06/21/17 08:00 06/30/17 14:37 (Heparin Inj) 5,000 units Q8HR SQ 07/15/17 08:00 12/03/17 14:46 (Pill Splitter) 1 ea UNSCH PRN OTHER 09/05/17 11:00 (Apresoline) 10 mg Q8HR PEG 09/24/17 14:00 12/03/17 14:46 (Norvasc) 10 mg DAILY PEG 10/04/17 09:00 12/03/17 09:52 (Oscal-D 250-125) 250 mg TID PEG 10/03/17 13:00 12/03/17 14:47 (Vitamin D3) 5,000 units DAILY PEG 10/04/17 09:00 12/03/17 09:52 (Catapres) 0.1 mg Q6H PRN PEG 10/03/17 12:30 11/27/17 00:23 (Lactinex) 1 tab Q12HR PEG 10/03/17 21:00 12/03/17 09:52 (Miralax) 17 gm DAILY PRN PEG 10/03/17 12:00 (Beneprotein Powder) 1 pack TID PRN G-TUBE 10/03/17 12:00 (Albuterol Neb) 2.5 mg Q2HR NEB PRN NEB 10/03/17 21:45 10/19/17 22:09 (Tylenol 650 Mg/ 20 ml Liq) 650 mg Q6H PRN PEG 10/26/17 06:45 (Roxicodone Intensol Liq) 5 mg Q6H PRN PO 10/29/17 11:00 (D50w (Vial) Inj) 50 ml UNSCH PRN IV PUSH 11/04/17 12:30 (Glucagon Inj) 1 mg UNSCH PRN OTHER 11/04/17 12:30 (NovoLIN R SUPPLEMENTAL SCALE) 1 Q6H SQ 11/04/17 12:30 12/03/17 13:12 (Reglan Liq) 10 mg Q8HR PO 11/07/17 14:30 Future Hold 11/18/17 14:08 (Questran Light Pkt) 4 gm BID PRN PEG 11/12/17 13:30 11/25/17 09:59 (Lasix) 20 mg DAILY PO 11/20/17 09:00 12/03/17 10:34 (Prinivil) 5 mg DAILY PEG 11/23/17 09:00 12/03/17 09:52 (Lomotil 2.5-0.025 Mg Liq) 5 ml Q6H PRN PO 11/25/17 13:15 12/03/17 15:01 (Levemir Inj) 12 units Q12H SQ 12/03/17 00:00 12/03/17 13:12 A/P Problem List: (1) Acute ischemic left middle cerebral artery (MCA) stroke ICD Code: I63.512 - Cerebral infarction due to unspecified occlusion or stenosis of left middle cerebral artery Status: Acute (2) Acute respiratory failure ICD Code: J96.00 - Acute respiratory failure, unspecified whether with hypoxia or hypercapnia (3) Right hemiplegia ICD Code: G81.91 - Hemiplegia, unspecified affecting right dominant side Status: Acute (4) Sacral decubitus ulcer ICD Code: L89.159 - Pressure ulcer of sacral region, unspecified stage Status: Chronic (5) HCAP (healthcare-associated pneumonia) ICD Code: J18.9 - Pneumonia, unspecified organism Status: Resolved (6) 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 She underwent ORIF on 04/21/17 and on 04/24 a stroke alert was called as she was found to have right hemiparesis with left gaze. She has a poor prognosis based on her lack of overall recovery over the last 6+ months. Patient has no acute issues, no change in care plan. Pulmonary edema -resolved chest x-ray done 11/13/2017, evidence of pulmonary edema, continue Lasix, monitor BMP every few weeks. 12/03 Chest x-ray on shows bilateral hazy airspace disease overall improved from November 13. Cardiomegaly. Increased furosemide 40 mg p.o. daily. Urinary retention No leukocytosis U/A with large leuk esterase but many squamous cells Culture grew Aerococcus, finished Augmentin November 07 - November 14. Leavitt replaced Elevated D-dimer Ordered 10/31 due to increased FiO2 demand. Since D-dimer elevated, CTA chest obtained to r/o PE which was negative Likely elevated in light of chronic illness RUE U/S negative for DVT - elevate R arm Left MCA stroke 5.5 mm of [id number] subfalcine herniation, diagnosed 04/24. Was not a candidate for thrombolysis at that time. Increasing edema seen on repeat CT 04/28 with a reduction in midline shift on another repeat on 04/30 Neurologic condition remained poor and she underwent trach 05/15/17 and PEG Persistent right-sided hemiparesis. Previously seen by neurology, signed off Previously seen by neurosurgery, signed off Continue daily ASA Patient has been attempting to pull tracheostomy out yesterday Hypertension / CHF Amlodipine 10 mg po daily, Doxazosin 1 mg peg daily, hydralazine 10 mg per per peg q8 hours. Clonidine 0.1 mg q6h prn Echo 10/06/17 LVSF EF = 25-30%. On furosemide 20 mg daily. 12/03 blood pressure severely elevated into the 160s systolic persistently. I will discontinue clonidine since clonidine has a potential negative chronotropic effect on the heart worsening bradycardia. Continue hydralazine and amlodipine. I will increase dose of hydralazine up to 25 mg PEG 3 times daily. Increase Lasix dose to 40 minutes p.o. daily. Chronic Tracheostomy /respiratory failure 10/22/2017 Pulmonary toilet, trach care Duo nebs as needed Pulm following, appreciate assistance Large left pneumothorax Resolved Chest tube placed 05/07, discontinued 05/12/17 Hepatitis C LFTs normalized Negative genotype/viral load Diabetes mellitus SSI Novolin R High-dose scale Levemir insulin 8u Q12 FEN PEG tube feeding with Glucerna 1.5 goal 45 cc/hr, per nutrition recommendations Loose Stools patient has been checked for Cdiff on multiple occasions, most recently 11/04 Cdiff negative already on lactinex bid Continue Questran, start Lomotil. Anal Fissure continue wound care Bradycardia Upon review of records the patient was recently evaluated by radiology due to bradycardia on 11/19/17. At the time cardiology recommended observation and avoidance of AV du blocking agents. Patient currently on telemetry with an episode of bradycardia in the 30s which was asymptomatic as per RN. EKG obtained on 12/02 shows sinus rhythm with moderate T-wave abnormalities on anterolateral leads. Reviewed by me. We will obtain cardiac enzymes and trend. Discontinue clonidine as needed as these can have a negative chronotropic effect on the heart and worsen or cause bradycardia. Fever Temp of 100.0. Check urinalysis and CXR. Last CXR on 11/13 showed cardiomegaly with worsening pulmonary edema pattern and a probable trace left pleural effusion. 12/03 no further fevers reported. Chest x-ray reviewed by me shows bilateral hazy airspace disease overall improved from November 13. Cardiomegaly. Urinalysis is suggestive of urinary tract infection. 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 I will not start IV antibiotics unless there is fever. Urine culture is growing gram-negative rods. DVT prophylaxis Heparin Discharge Planning Very poor prognosis. Appreciate palliative care efforts. Problem Qualifiers (1) Acute respiratory failure: Qualified Codes: J96.00 - Acute respiratory failure, unspecified whether with hypoxia or hypercapnia (2) Sacral decubitus ulcer: Qualified Codes: L89.152 - Pressure ulcer of sacral region, stage 2 (3) Chronic respiratory failure: Qualified Codes: J96.11 - Chronic respiratory failure with hypoxia Aleksandar Alford MD Dec 03, 2017 17:02
--- NOTE | 2017-12-03 19:45 | HHI.PR ---
Subjective Remarks No events overnight. Patient is on TP's with 40% FIO2. . Tolerating tube feeds. Tolerates TF No fever No new complaint Per RN, tries to reach out for trach Objective Vital Signs Vital Signs Date Time Temp Pulse Resp B/P (MAP) Pulse Ox O2 Delivery O2 Flow Rate FiO2 12/03/17 18:39 66 12/03/17 16:00 97.5 68 16 140/76 (97) 98 12/03/17 13:27 97 T-piece 6.00 28 12/03/17 12:00 98.3 99 20 161/76 (104) 99 12/03/17 08:00 98.0 78 18 161/76 (104) 97 12/03/17 07:00 97 T-Piece 6.00 28 12/03/17 07:00 80 12/03/17 04:00 98.3 77 16 148/73 (98) 96 12/03/17 04:00 77 12/03/17 00:00 82 12/03/17 00:00 T-Piece 6.00 28 12/03/17 00:00 98.3 82 16 149/75 (99) 95 12/02/17 20:00 98.4 76 16 169/78 (108) 96 12/02/17 20:00 T-Piece 6.00 28 I/O 12/02/17 12/02/17 12/02/17 12/03/17 12/03/17 12/03/17 07:00 15:00 23:00 07:00 15:00 23:00 Intake Total 1580 ml 1094 ml 1222 ml 1126 ml Output Total 275 ml 750 ml 1200 ml 1150 ml Balance 1305 ml 344 ml 22 ml -24 ml Tube Feeding 900 ml 614 ml 479 ml 646 ml Tube Irrigant 200 ml Other 480 ml 480 ml 743 ml 480 ml Output Urine Total 275 ml 750 ml 1200 ml 1150 ml # Bowel Movements 1 2 Result Diagram: 12/02/17195712/02/171957 Objective Remarks GENERAL: Elderly female,NAD SKIN: Warm and dry. HEAD: Normocephalic. EYES: No scleral icterus. No injection or drainage. NECK: Supple, trachea midline. No JVD or lymphadenopathy. + trach CARDIOVASCULAR: Regular rate and rhythm without murmurs, gallops, or rubs. RESPIRATORY: Breath sounds equal bilaterally. No accessory muscle use. GASTROINTESTINAL: Abdomen soft, non-tender, nondistended. MUSCULOSKELETAL: No cyanosis, or edema. BACK: Nontender without obvious deformity. No CVA tenderness. A/P Assessment and Plan Chronic resp failure, ,S/P Trach CVA Pneumonia Calcified Granuloma LLL Pseudomonas Tracheobronchitis, PLAN: Continue with TP's, keep sats >92% Bronchodilators, Pulm toilet, trach care CT chest 11/01: No PE,adenopathy in the right paratracheal, subcarinal and hilar regions with numerous prominent lymph nodes seen. Cont TF- GI/DVT prophylaxis Continue treatment plan. LAI RN at Stable from pulm standpoint Chris Rizo MD Dec 03, 2017 19:45
[2017-12-04] VITALS (10 sets, daily range): BP systolic 116–165; BP diastolic 58–84; PULSE 63–82; RESP 18–20; TEMP 97.6–99.1; O2SAT 96–98
[2017-12-04] MEDS: INSULIN DETEMIR 100 UNITS/ML VIAL SQ SCH ×2 (00:03→14:34)
[2017-12-04] MEDS: INSULIN NovoLIN REGULAR SUPPLEMENTAL SCALE SQ SCH ×4 (00:30→18:30)
[2017-12-04] MEDS: hydrALAZINE HCL 10 MG TAB PEG SCH ×3 (06:12→22:14)
[2017-12-04] MEDS: HEPARIN SODIUM - SQ 10,000 UNITS/ML VIAL SQ SCH ×3 (06:13→22:14)
[2017-12-04] MEDS: ARTIFICIAL TEARS OPTH SOLN 15 ML BTL EACH EYE SCH ×3 (06:13→22:00)
[2017-12-04] MEDS: CHOLECALCIFEROL (VIT D3) 5000 UNIT CAP PEG SCH (09:30)
[2017-12-04] MEDS: LANSOPRAZOLE SOLUTAB 30 MG TAB NG SCH (09:30)
[2017-12-04] MEDS: LISINOPRIL 5 MG TAB PEG SCH (09:30)
[2017-12-04] MEDS: CALCIUM/VITAMIN D 250 MG/125 U TAB PEG SCH ×3 (09:30→18:41)
[2017-12-04] MEDS: ASPIRIN 325 MG TAB DOBHOFF SCH (09:30)
[2017-12-04] MEDS: LACTOBACILLUS ACIDOPHILUS TAB PEG SCH ×2 (09:30→20:00)
[2017-12-04] MEDS: FUROSEMIDE 40 MG TAB PO SCH (09:31)
--- NOTE | 2017-12-04 16:57 | HHI.PR ---
Subjective Remarks no further fevers no major overnight events discussed w RN Objective Vitals Vital Signs Date Time Temp Pulse Resp B/P (MAP) Pulse Ox O2 Delivery O2 Flow Rate FiO2 12/04/17 08:00 82 12/04/17 08:00 98.0 80 18 136/84 (101) 97 12/04/17 08:00 T-Piece 6.00 28 12/04/17 07:55 96 T-piece 6.00 28 12/04/17 04:00 70 12/04/17 04:00 97.6 63 18 165/83 (110) 96 12/04/17 00:00 70 18 150/83 (105) 97 12/03/17 20:00 60 12/03/17 20:00 97.6 63 18 154/77 (102) 99 12/03/17 20:00 T-Piece 6.00 28 12/03/17 19:29 100 T-piece 6.00 28 12/03/17 18:39 66 I/O 12/03/17 12/03/17 12/03/17 12/04/17 12/04/17 12/04/17 07:00 15:00 23:00 07:00 15:00 23:00 Intake Total 1222 ml 1126 ml 800 ml Output Total 1200 ml 1150 ml 500 ml Balance 22 ml -24 ml 300 ml Tube Feeding 479 ml 646 ml 360 ml Tube Irrigant 200 ml Other 743 ml 480 ml 240 ml Output Urine Total 1200 ml 1150 ml 500 ml # Bowel Movements 2 1 Result Diagram: 12/02/17195712/02/171957 Objective Remarks GENERAL: Awakens, opens eyes and tracks when physically stimulated. SKIN: Warm and dry. HEAD: Normocephalic. EYES: No scleral icterus. No injection or drainage. NECK: Supple, trachea midline. No JVD or lymphadenopathy. T piece in place, no redness over trach insertion site. CARDIOVASCULAR: Regular rate and rhythm without murmurs, gallops, or rubs. RESPIRATORY: Clear to auscultation BL. NO rhonchi or rales auscultated. GASTROINTESTINAL: Abdomen soft, non-tender, nondistended. MUSCULOSKELETAL: No cyanosis, or edema. BACK: Nontender without obvious deformity. No CVA tenderness. Neuro: Awake and alert, does not follow commands. Nonverbal. Procedures PEG tube trach 05/15/17 and PEG 05/16/17 A/P Problem List: (1) Acute ischemic left middle cerebral artery (MCA) stroke ICD Code: I63.512 - Cerebral infarction due to unspecified occlusion or stenosis of left middle cerebral artery Status: Acute (2) Acute respiratory failure ICD Code: J96.00 - Acute respiratory failure, unspecified whether with hypoxia or hypercapnia (3) Right hemiplegia ICD Code: G81.91 - Hemiplegia, unspecified affecting right dominant side Status: Acute (4) Sacral decubitus ulcer ICD Code: L89.159 - Pressure ulcer of sacral region, unspecified stage Status: Chronic (5) HCAP (healthcare-associated pneumonia) ICD Code: J18.9 - Pneumonia, unspecified organism Status: Resolved (6) 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 She underwent ORIF on 04/21/17 and on 04/24 a stroke alert was called as she was found to have right hemiparesis with left gaze. She has a poor prognosis based on her lack of overall recovery over the last 6+ months. Patient has no acute issues, no change in care plan. Pulmonary edema -resolved chest x-ray done 11/13/2017, evidence of pulmonary edema, continue Lasix, monitor BMP every few weeks. 12/03 Chest x-ray on shows bilateral hazy airspace disease overall improved from November 13. Cardiomegaly. Increased furosemide 40 mg p.o. daily. Urinary retention No leukocytosis U/A with large leuk esterase but many squamous cells Culture grew Aerococcus, finished Augmentin November 07 - November 14. Moser replaced Elevated D-dimer Ordered 10/31 due to increased FiO2 demand. Since D-dimer elevated, CTA chest obtained to r/o PE which was negative Likely elevated in light of chronic illness RUE U/S negative for DVT - elevate R arm Left MCA stroke 5.5 mm of lico-me-gdimr subfalcine herniation, diagnosed 04/24. Was not a candidate for thrombolysis at that time. Increasing edema seen on repeat CT 04/28 with a reduction in midline shift on another repeat on 04/30 Neurologic condition remained poor and she underwent trach 05/15/17 and PEG Persistent right-sided hemiparesis. Previously seen by neurology, signed off Previously seen by neurosurgery, signed off Continue daily ASA Patient has been attempting to pull tracheostomy out yesterday Hypertension / CHF Amlodipine 10 mg po daily, Doxazosin 1 mg peg daily, hydralazine 10 mg per per peg q8 hours. Clonidine 0.1 mg q6h prn Echo 10/06/17 LVSF EF = 25-30%. On furosemide 20 mg daily. 12/03 blood pressure severely elevated into the 160s systolic persistently. I will discontinue clonidine since clonidine has a potential negative chronotropic effect on the heart worsening bradycardia. Continue hydralazine and amlodipine. I will increase dose of hydralazine up to 25 mg PEG 3 times daily. Increase Lasix dose to 40 minutes p.o. daily. Chronic Tracheostomy /respiratory failure 10/22/2017 Pulmonary toilet, trach care Duo nebs as needed Pulm following, appreciate assistance Large left pneumothorax Resolved Chest tube placed 05/07, discontinued 05/12/17 Hepatitis C LFTs normalized Negative genotype/viral load Diabetes mellitus SSI Novolin R High-dose scale Levemir insulin 8u Q12 FEN PEG tube feeding with Glucerna 1.5 goal 45 cc/hr, per nutrition recommendations Loose Stools patient has been checked for Cdiff on multiple occasions, most recently 11/04 Cdiff negative already on lactinex bid Continue Questran, start Lomotil. Anal Fissure continue wound care Bradycardia Upon review of records the patient was recently evaluated by radiology due to bradycardia on 11/19/17. At the time cardiology recommended observation and avoidance of AV du blocking agents. Patient currently on telemetry with an episode of bradycardia in the 30s which was asymptomatic as per RN. EKG obtained on 12/02 shows sinus rhythm with moderate T-wave abnormalities on anterolateral leads. Reviewed by me. We will obtain cardiac enzymes and trend. Discontinue clonidine as needed as these can have a negative chronotropic effect on the heart and worsen or cause bradycardia. Fever Temp of 100.0. Check urinalysis and CXR. Last CXR on 11/13 showed cardiomegaly with worsening pulmonary edema pattern and a probable trace left pleural effusion. 12/03 no further fevers reported. Chest x-ray reviewed by me shows bilateral hazy airspace disease overall improved from November 13. Cardiomegaly. Urinalysis is suggestive of urinary tract infection. 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 I will not start IV antibiotics unless there is fever. Urine culture is growing gram-negative rods. 12/04 Urine culture is growing Pseudomonas Fluorescens/Putida. Will remove moser catheter ad do voiding trials and repeat urinalysis via straight cath. DVT prophylaxis Heparin Discharge Planning Very poor prognosis. Appreciate palliative care efforts. Problem Qualifiers (1) Acute respiratory failure: Qualified Codes: J96.00 - Acute respiratory failure, unspecified whether with hypoxia or hypercapnia (2) Sacral decubitus ulcer: Qualified Codes: L89.152 - Pressure ulcer of sacral region, stage 2 (3) Chronic respiratory failure: Qualified Codes: J96.11 - Chronic respiratory failure with hypoxia Aleksandar Alford MD Dec 04, 2017 16:57
--- NOTE | 2017-12-04 17:15 | HHI.PR ---
Subjective Remarks Case discussed with RN. No major overnight events. No reported further pains of bradycardia. There are no reported further febrile episodes. Objective Vitals Vital Signs Date Time Temp Pulse Resp B/P (MAP) Pulse Ox O2 Delivery O2 Flow Rate FiO2 12/04/17 08:00 82 12/04/17 08:00 98.0 80 18 136/84 (101) 97 12/04/17 08:00 T-Piece 6.00 28 12/04/17 07:55 96 T-piece 6.00 28 12/04/17 04:00 70 12/04/17 04:00 97.6 63 18 165/83 (110) 96 12/04/17 00:00 70 18 150/83 (105) 97 12/03/17 20:00 60 12/03/17 20:00 97.6 63 18 154/77 (102) 99 12/03/17 20:00 T-Piece 6.00 28 12/03/17 19:29 100 T-piece 6.00 28 12/03/17 18:39 66 I/O 12/03/17 12/03/17 12/03/17 12/04/17 12/04/17 12/04/17 07:00 15:00 23:00 07:00 15:00 23:00 Intake Total 1222 ml 1126 ml 800 ml Output Total 1200 ml 1150 ml 500 ml Balance 22 ml -24 ml 300 ml Tube Feeding 479 ml 646 ml 360 ml Tube Irrigant 200 ml Other 743 ml 480 ml 240 ml Output Urine Total 1200 ml 1150 ml 500 ml # Bowel Movements 2 1 Result Diagram: 12/02/17195712/02/171957 Imaging Last Impressions Chest X-Ray 12/02/17 0000 Signed Impressions: Service Date/Time: Saturday, December 02, 2017 19:12 - CONCLUSION: 1. Bilateral hazy air space disease overall improved from November 13. Cardiomegaly. Tracheostomy present. Jaime Velasquez MD Upper Extremity Ultrasound 11/04/17 0000 Signed Impressions: Service Date/Time: Saturday, November 04, 2017 09:57 - CONCLUSION: No thrombus observed. Subcutaneous edema noted. Deangelo Wren Jr., MD Abdomen X-Ray 11/04/17 0000 Signed Impressions: Service Date/Time: Saturday, November 04, 2017 11:58 - CONCLUSION: Gaseous distention of bowel loops could be ileus but unchanged. Benja Ramsey MD CT Angiography 11/01/17 0000 Signed Impressions: Service Date/Time: Wednesday, November 01, 2017 16:47 - CONCLUSION: No evidence for pulmonary embolism. Please see above. Choco Mustafa MD Thoracentesis 08/05/17 1535 Signed Impressions: Service Date/Time: Saturday, August 05, 2017 16:08 - CONCLUSION: Uncomplicated CT-guided thoracentesis. Sage Adler MD Chest Ultrasound 08/02/17 0000 Signed Impressions: Service Date/Time: Tuesday, August 01, 2017 22:06 - CONCLUSION: 1. Moderate right pleural effusion, as above. Alejo De La Vega MD Hip and Pelvis X-Ray 07/09/17 0000 Signed Impressions: Service Date/Time: Sunday, July 09, 2017 14:04 - CONCLUSION: Anatomic alignment. Ricardo Middleton MD FACR Liver Ultrasound 06/19/17 0000 Signed Impressions: Service Date/Time: June 13:20 - CONCLUSION: 1. Mildly increased echotexture of the liver characteristic of hepatic steatosis. 2. Gallbladder sludge. Obdulio Sam MD Head CT 05/15/17 0000 Signed Impressions: Service Date/Time: May 19:59 - CONCLUSION: 1. 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 2. No bleed or new/acute infarct. Obdulio Smims MD Gall Bladder Ultrasound 05/08/17 0000 Signed Impressions: Service Date/Time: May 08:23 - CONCLUSION: Focally unremarkable appearance of the gallbladder Obdulio Chun MD Abdomen/Pelvis CT 05/07/17 0000 Signed Impressions: Service Date/Time: Sunday, May 07, 2017 13:23 - CONCLUSION: 1. Large left pneumothorax. 2. Bilateral lower lobe consolidation and bilateral moderate size pleural effusions. 3. Significant soft tissue thickening of the right lateral chest wall and left gluteus muscle. 4. Mild ascites. The findings were called to Dr. Carney. Deangelo Zamora MD Chest CT 04/30/17 0000 Signed Impressions: Service Date/Time: Sunday, April 30, 2017 09:20 - CONCLUSION: 1. Bilateral pulmonary infiltrates more pronounced within the lower lobes with tiny bilateral pleural effusions. Material seen filling the lower lobe bronchi bilaterally either related to purulent material or perhaps mucus plugging. Deangelo Wren Jr., MD Carotid Artery Ultrasound 04/24/17 0000 Signed Impressions: Service Date/Time: April 09:45 - CONCLUSION: 1. No hemodynamically significant carotid artery stenosis. Arnie Middleton MD Hip X-Ray 04/21/17 0000 Signed Impressions: Service Date/Time: Friday, April 21, 2017 11:36 - CONCLUSION: Fluoroscopic images during placement of intramedullary siomara left femur. Benja Ramsey MD Objective Remarks GENERAL: Unresponsive to verbal stimuli, opens eyes and tracks when physically stimulated. SKIN: Warm and dry. HEAD: Normocephalic. EYES: No scleral icterus. No injection or drainage. NECK: Supple, trachea midline. No JVD or lymphadenopathy. T piece in place, no redness over trach insertion site. CARDIOVASCULAR: Regular rate and rhythm without murmurs, gallops, or rubs. RESPIRATORY: Clear to auscultation BL. NO rhonchi or rales auscultated. GASTROINTESTINAL: Abdomen soft, non-tender, nondistended. MUSCULOSKELETAL: No cyanosis, or edema. BACK: Nontender without obvious deformity. No CVA tenderness. Neuro: Awake and alert, does not follow commands. Nonverbal. Procedures PEG tube trach 05/15/17 and PEG 05/16/17 Medications and IVs Current Medications Medications (Trade) Dose Ordered Sig/Zeferino Route Start Time Stop Time Status Last Admin (Narcan Inj) 0.4 mg UNSCH PRN IV 04/20/17 17:15 (Aspirin) 325 mg DAILY DOBHOFF 04/27/17 09:00 12/04/17 09:30 (Prevacid Odt) 30 mg DAILY NG 05/08/17 09:00 12/04/17 09:30 (Tears Naturale Opth Soln) 1 drop Q8HR EACH EYE 06/12/17 07:15 12/04/17 14:36 (Nitroglycerin 2% Oint) 2 inch Q6H PRN TOPICAL 06/21/17 08:00 06/30/17 14:37 (Heparin Inj) 5,000 units Q8HR SQ 07/15/17 08:00 12/04/17 14:35 (Pill Splitter) 1 ea UNSCH PRN OTHER 09/05/17 11:00 (Apresoline) 10 mg Q8HR PEG 09/24/17 14:00 12/04/17 14:35 (Norvasc) 10 mg DAILY PEG 10/04/17 09:00 12/04/17 09:30 (Oscal-D 250-125) 250 mg TID PEG 10/03/17 13:00 12/04/17 14:35 (Vitamin D3) 5,000 units DAILY PEG 10/04/17 09:00 12/04/17 09:30 (Catapres) 0.1 mg Q6H PRN PEG 10/03/17 12:30 11/27/17 00:23 (Lactinex) 1 tab Q12HR PEG 10/03/17 21:00 12/04/17 09:30 (Miralax) 17 gm DAILY PRN PEG 10/03/17 12:00 (Beneprotein Powder) 1 pack TID PRN G-TUBE 10/03/17 12:00 (Albuterol Neb) 2.5 mg Q2HR NEB PRN NEB 10/03/17 21:45 10/19/17 22:09 (Tylenol 650 Mg/ 20 ml Liq) 650 mg Q6H PRN PEG 10/26/17 06:45 (Roxicodone Intensol Liq) 5 mg Q6H PRN PO 10/29/17 11:00 (D50w (Vial) Inj) 50 ml UNSCH PRN IV PUSH 11/04/17 12:30 (Glucagon Inj) 1 mg UNSCH PRN OTHER 11/04/17 12:30 (NovoLIN R SUPPLEMENTAL SCALE) 1 Q6H SQ 11/04/17 12:30 12/04/17 14:35 (Reglan Liq) 10 mg Q8HR PO 11/07/17 14:30 Future Hold 11/18/17 14:08 (Questran Light Pkt) 4 gm BID PRN PEG 11/12/17 13:30 11/25/17 09:59 (Prinivil) 5 mg DAILY PEG 11/23/17 09:00 12/04/17 09:30 (Lomotil 2.5-0.025 Mg Liq) 5 ml Q6H PRN PO 11/25/17 13:15 12/03/17 15:01 (Levemir Inj) 12 units Q12H SQ 12/03/17 00:00 12/04/17 14:34 (Lasix) 40 mg DAILY PO 12/04/17 09:00 12/04/17 09:31 A/P Problem List: (1) Acute ischemic left middle cerebral artery (MCA) stroke ICD Code: I63.512 - Cerebral infarction due to unspecified occlusion or stenosis of left middle cerebral artery Status: Acute (2) Acute respiratory failure ICD Code: J96.00 - Acute respiratory failure, unspecified whether with hypoxia or hypercapnia (3) Right hemiplegia ICD Code: G81.91 - Hemiplegia, unspecified affecting right dominant side Status: Acute (4) Sacral decubitus ulcer ICD Code: L89.159 - Pressure ulcer of sacral region, unspecified stage Status: Chronic (5) HCAP (healthcare-associated pneumonia) ICD Code: J18.9 - Pneumonia, unspecified organism Status: Resolved (6) 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 She underwent ORIF on 04/21/17 and on 04/24 a stroke alert was called as she was found to have right hemiparesis with left gaze. She has a poor prognosis based on her lack of overall recovery over the last 6+ months. Patient has no acute issues, no change in care plan. Pulmonary edema -resolved chest x-ray done 11/13/2017, evidence of pulmonary edema, continue Lasix, monitor BMP every few weeks. 12/03 Chest x-ray on shows bilateral hazy airspace disease overall improved from November 13. Cardiomegaly. Increased furosemide 40 mg p.o. daily. Urinary retention No leukocytosis U/A with large leuk esterase but many squamous cells Culture grew Aerococcus, finished Augmentin November 07 - November 14. Leavitt replaced Elevated D-dimer Ordered 10/31 due to increased FiO2 demand. Since D-dimer elevated, CTA chest obtained to r/o PE which was negative Likely elevated in light of chronic illness RUE U/S negative for DVT - elevate R arm Left MCA stroke 5.5 mm of [id number]-[id number] subfalcine herniation, diagnosed 04/24. Was not a candidate for thrombolysis at that time. Increasing edema seen on repeat CT 04/28 with a reduction in midline shift on another repeat on 04/30 Neurologic condition remained poor and she underwent trach 05/15/17 and PEG Persistent right-sided hemiparesis. Previously seen by neurology, signed off Previously seen by neurosurgery, signed off Continue daily ASA Patient has been attempting to pull tracheostomy out yesterday Hypertension / CHF Amlodipine 10 mg po daily, hydralazine 10 mg per per peg q8 hours. Clonidine 0.1 mg q6h prn Echo 10/06/17 LVSF EF = 25-30%. On furosemide 40 mg po daily 12/03 blood pressure severely elevated into the 160s systolic persistently. I will discontinue clonidine since clonidine has a potential negative chronotropic effect on the heart worsening bradycardia. Continue hydralazine and amlodipine. Increase Lasix dose to 40 minutes p.o. daily. /5 Blood pressure elevated earlier today into the 150s. Continue hydralazine and amlodipine at the same dose. If patient continues to have persistent elevated blood pressure will then increase hydralazine dose. Chronic Tracheostomy /respiratory failure 10/22/2017 Pulmonary toilet, trach care Duo nebs as needed Pulm following, appreciate assistance Large left pneumothorax Resolved Chest tube placed 05/07, discontinued 05/12/17 Hepatitis C LFTs normalized Negative genotype/viral load Diabetes mellitus SSI Novolin R High-dose scale Levemir insulin 8u Q12 FEN PEG tube feeding with Glucerna 1.5 goal 45 cc/hr, per nutrition recommendations Loose Stools patient has been checked for Cdiff on multiple occasions, most recently 11/04 Cdiff negative already on lactinex bid Continue Questran, start Lomotil. Anal Fissure continue wound care Bradycardia Upon review of records the patient was recently evaluated by radiology due to bradycardia on 11/19/17. At the time cardiology recommended observation and avoidance of AV du blocking agents. Patient currently on telemetry with an episode of bradycardia in the 30s which was asymptomatic as per RN. EKG obtained on 12/02 shows sinus rhythm with moderate T-wave abnormalities on anterolateral leads. Reviewed by me. Clonidine discontinued as these can have a negative chronotropic effect on the heart and worsen or cause bradycardia. Fever Temp of 100.0. Check urinalysis and CXR. Last CXR on 11/13 showed cardiomegaly with worsening pulmonary edema pattern and a probable trace left pleural effusion. 12/03 no further fevers reported. Chest x-ray reviewed by me shows bilateral hazy airspace disease overall improved from November 13. Cardiomegaly. Urinalysis is suggestive of urinary tract infection. 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 I will not start IV antibiotics unless there is fever. Urine culture is growing gram-negative rods. 12/04 urine cultures growing Pseudomonas fluorescence/Putida. Continue to hold off on antibiotics. Discussed the case with RN, will discontinue Leavitt catheter and start voiding trials. A new urinalysis will be ordered that should be obtained via straight catheter or if the patient fails the voiding trials and start retaining urine then should be obtained after the new Leavitt catheter is placed. DVT prophylaxis Heparin Discharge Planning Very poor prognosis. Appreciate palliative care efforts. Problem Qualifiers (1) Acute respiratory failure: Qualified Codes: J96.00 - Acute respiratory failure, unspecified whether with hypoxia or hypercapnia (2) Sacral decubitus ulcer: Qualified Codes: L89.152 - Pressure ulcer of sacral region, stage 2 (3) Chronic respiratory failure: Qualified Codes: J96.11 - Chronic respiratory failure with hypoxia Aleksandar Alford MD Dec 04, 2017 17:14
--- NOTE | 2017-12-04 18:02 | HHI.PR ---
Subjective Remarks No events overnight. Patient is on TP's with 40% FIO2. . Tolerating tube feeds. Tolerates TF No fever No new complaint Calm, sleeping Objective Vital Signs Vital Signs Date Time Temp Pulse Resp B/P (MAP) Pulse Ox O2 Delivery O2 Flow Rate FiO2 12/04/17 08:00 82 12/04/17 08:00 98.0 80 18 136/84 (101) 97 12/04/17 08:00 T-Piece 6.00 28 12/04/17 07:55 96 T-piece 6.00 28 12/04/17 04:00 70 12/04/17 04:00 97.6 63 18 165/83 (110) 96 12/04/17 00:00 70 18 150/83 (105) 97 12/03/17 20:00 60 12/03/17 20:00 97.6 63 18 154/77 (102) 99 12/03/17 20:00 T-Piece 6.00 28 12/03/17 19:29 100 T-piece 6.00 28 12/03/17 18:39 66 I/O 12/03/17 12/03/17 12/03/17 12/04/17 12/04/17 12/04/17 07:00 15:00 23:00 07:00 15:00 23:00 Intake Total 1222 ml 1126 ml 800 ml Output Total 1200 ml 1150 ml 500 ml Balance 22 ml -24 ml 300 ml Tube Feeding 479 ml 646 ml 360 ml Tube Irrigant 200 ml Other 743 ml 480 ml 240 ml Output Urine Total 1200 ml 1150 ml 500 ml # Bowel Movements 2 1 Result Diagram: 12/02/17195712/02/171957 Objective Remarks GENERAL: Elderly female,NAD SKIN: Warm and dry. HEAD: Normocephalic. EYES: No scleral icterus. No injection or drainage. NECK: Supple, trachea midline. No JVD or lymphadenopathy. + trach CARDIOVASCULAR: Regular rate and rhythm without murmurs, gallops, or rubs. RESPIRATORY: Breath sounds equal bilaterally. No accessory muscle use. GASTROINTESTINAL: Abdomen soft, non-tender, nondistended. MUSCULOSKELETAL: No cyanosis, or edema. BACK: Nontender without obvious deformity. No CVA tenderness. A/P Assessment and Plan Chronic resp failure, ,S/P Trach CVA Pneumonia Calcified Granuloma LLL Pseudomonas Tracheobronchitis, PLAN: Continue with TP's, keep sats >92% Bronchodilators, Pulm toilet, trach care CT chest 11/01: No PE,adenopathy in the right paratracheal, subcarinal and hilar regions with numerous prominent lymph nodes seen. Cont TF- GI/DVT prophylaxis Continue treatment plan. [facility] RN at [facility],Chris Hester MD Dec 04, 2017 18:02
[2017-12-05] VITALS (11 sets, daily range): BP systolic 118–161; BP diastolic 64–80; PULSE 67–84; RESP 18–20; TEMP 98–99.3; O2SAT 95–100
[2017-12-05] MEDS: INSULIN DETEMIR 100 UNITS/ML VIAL SQ SCH ×2 (00:36→12:00)
[2017-12-05] MEDS: INSULIN NovoLIN REGULAR SUPPLEMENTAL SCALE SQ SCH ×4 (00:38→17:20)
[2017-12-05] MEDS: hydrALAZINE HCL 10 MG TAB PEG SCH ×3 (06:18→21:23)
[2017-12-05] MEDS: HEPARIN SODIUM - SQ 10,000 UNITS/ML VIAL SQ SCH ×3 (06:18→21:23)
[2017-12-05] MEDS: ARTIFICIAL TEARS OPTH SOLN 15 ML BTL EACH EYE SCH ×3 (06:19→21:24)
[2017-12-05 08:10] LABS: BILIRUBIN, URINE NEG (NEG); BLOOD, URINE NEG (NEG); GLUCOSE,URINE NEG (NEG); HYALINE CAST, URINE 2 /lpf (RARE); KETONE, URINE NEG (NEG); NITRITE,URINE NEG (NEG); PH, URINE 7.5 (5.0-8.5); SQUAMOUS EPITHELIAL CELL URINE <1 /hpf (0-5); TRANSITIONAL EPI CELLS, URINE <1 /hpf; URINE COLOR LIGHT-YELLOW (YELLW/STRAW); URINE LEUKOCYTE ESTERASE NEG (NEG)
[2017-12-05] MEDS: CALCIUM/VITAMIN D 250 MG/125 U TAB PEG SCH ×3 (09:00→17:20)
[2017-12-05] MEDS: LANSOPRAZOLE SOLUTAB 30 MG TAB NG SCH (09:31)
[2017-12-05] MEDS: ASPIRIN 325 MG TAB DOBHOFF SCH (09:31)
[2017-12-05] MEDS: FUROSEMIDE 40 MG TAB PO SCH (09:31)
[2017-12-05] MEDS: LACTOBACILLUS ACIDOPHILUS TAB PEG SCH ×2 (09:32→21:23)
[2017-12-05] MEDS: CHOLECALCIFEROL (VIT D3) 5000 UNIT CAP PEG SCH (09:32)
[2017-12-05] MEDS: LISINOPRIL 5 MG TAB PEG SCH (09:32)
--- NOTE | 2017-12-05 19:30 | HHI.PR ---
Subjective Remarks No events overnight. Patient is on TP's with 40% FIO2. . Tolerating tube feeds. Tolerates TF No fever No new complaint Calm, sleeping DW RN at Objective Vital Signs Vital Signs Date Time Temp Pulse Resp B/P (MAP) Pulse Ox O2 Delivery O2 Flow Rate FiO2 12/05/17 16:16 98.0 84 20 118/64 (82) 96 12/05/17 15:39 84 12/05/17 13:45 98.0 78 20 128/64 (85) 98 12/05/17 11:18 100 T-piece 5.00 28 12/05/17 10:51 98.9 67 18 130/66 (87) 96 12/05/17 07:45 T-Piece 6.00 28 12/05/17 07:45 78 12/05/17 04:00 99.3 77 18 150/77 (101) 97 12/05/17 00:47 99.0 81 18 132/67 (88) 95 12/04/17 22:05 81 148/72 (97) 97 12/04/17 20:04 97 T-piece 5.00 28 12/04/17 20:00 T-Piece 6.00 28 12/04/17 20:00 99.1 74 20 152/73 (99) 96 I/O 12/04/17 12/04/17 12/04/17 12/05/17 12/05/17 12/05/17 07:00 15:00 23:00 07:00 15:00 23:00 Intake Total 800 ml 840 ml 695 ml Output Total 500 ml 1202 ml 600 ml 250 ml Balance 300 ml -362 ml -600 ml 445 ml IV Total 0 ml Tube Feeding 360 ml 640 ml 495 ml Tube Irrigant 200 ml 200 ml Other 240 ml 200 ml Output Urine Total 500 ml 1200 ml 600 ml 250 ml Stool Total 2 ml # Voids 1 2 # Bowel Movements 1 1 2 Result Diagram: 12/02/17195712/02/171957 Objective Remarks GENERAL: Elderly female,NAD SKIN: Warm and dry. HEAD: Normocephalic. EYES: No scleral icterus. No injection or drainage. NECK: Supple, trachea midline. No JVD or lymphadenopathy. + trach CARDIOVASCULAR: Regular rate and rhythm without murmurs, gallops, or rubs. RESPIRATORY: Breath sounds equal bilaterally. No accessory muscle use. GASTROINTESTINAL: Abdomen soft, non-tender, nondistended. MUSCULOSKELETAL: No cyanosis, or edema. BACK: Nontender without obvious deformity. No CVA tenderness. A/P Assessment and Plan Chronic resp failure, ,S/P Trach CVA Pneumonia Calcified Granuloma LLL Pseudomonas Tracheobronchitis, PLAN: Continue with TP's, keep sats >92% Bronchodilators, Pulm toilet, trach care CT chest 11/01: No PE,adenopathy in the right paratracheal, subcarinal and hilar regions with numerous prominent lymph nodes seen. Cont TF- GI/DVT prophylaxis Continue treatment plan. Chris Rizo MD Dec 05, 2017 19:30
--- NOTE | 2017-12-05 19:57 | HHI.PR ---
Subjective Remarks no major overnight events Patient afebrile case discussed with RN Objective Vitals Vital Signs Date Time Temp Pulse Resp B/P (MAP) Pulse Ox O2 Delivery O2 Flow Rate FiO2 12/05/17 16:16 98.0 84 20 118/64 (82) 96 12/05/17 15:39 84 12/05/17 13:45 98.0 78 20 128/64 (85) 98 12/05/17 11:18 100 T-piece 5.00 28 12/05/17 10:51 98.9 67 18 130/66 (87) 96 12/05/17 07:45 T-Piece 6.00 28 12/05/17 07:45 78 12/05/17 04:00 99.3 77 18 150/77 (101) 97 12/05/17 00:47 99.0 81 18 132/67 (88) 95 12/04/17 22:05 81 148/72 (97) 97 12/04/17 20:04 97 T-piece 5.00 28 12/04/17 20:00 T-Piece 6.00 28 12/04/17 20:00 99.1 74 20 152/73 (99) 96 I/O 12/04/17 12/04/17 12/04/17 12/05/17 12/05/17 12/05/17 06:59 14:59 22:59 06:59 14:59 22:59 Intake Total 800 ml 840 ml 695 ml Output Total 500 ml 1202 ml 600 ml 250 ml Balance 300 ml -362 ml -600 ml 445 ml IV Total 0 ml Tube Feeding 360 ml 640 ml 495 ml Tube Irrigant 200 ml 200 ml Other 240 ml 200 ml Output Urine Total 500 ml 1200 ml 600 ml 250 ml Stool Total 2 ml # Voids 1 2 # Bowel Movements 1 1 2 Result Diagram: 12/02/17195712/02/171957 Objective Remarks GENERAL: Awakens, opens eyes and tracks when physically stimulated. SKIN: Warm and dry. HEAD: Normocephalic. EYES: No scleral icterus. No injection or drainage. NECK: Supple, trachea midline. No JVD or lymphadenopathy. T piece in place, no redness over trach insertion site. CARDIOVASCULAR: Regular rate and rhythm without murmurs, gallops, or rubs. RESPIRATORY: Clear to auscultation BL. NO rhonchi or rales auscultated. GASTROINTESTINAL: Abdomen soft, non-tender, nondistended. MUSCULOSKELETAL: No cyanosis, or edema. BACK: Nontender without obvious deformity. No CVA tenderness. Neuro: Awake and alert, does not follow commands. Nonverbal. Procedures PEG tube trach 05/15/17 and PEG 05/16/17 A/P Problem List: (1) Acute ischemic left middle cerebral artery (MCA) stroke ICD Code: I63.512 - Cerebral infarction due to unspecified occlusion or stenosis of left middle cerebral artery Status: Acute (2) Acute respiratory failure ICD Code: J96.00 - Acute respiratory failure, unspecified whether with hypoxia or hypercapnia (3) Right hemiplegia ICD Code: G81.91 - Hemiplegia, unspecified affecting right dominant side Status: Acute (4) Sacral decubitus ulcer ICD Code: L89.159 - Pressure ulcer of sacral region, unspecified stage Status: Chronic (5) HCAP (healthcare-associated pneumonia) ICD Code: J18.9 - Pneumonia, unspecified organism Status: Resolved (6) 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 She underwent ORIF on 04/21/17 and on 04/24 a stroke alert was called as she was found to have right hemiparesis with left gaze. She has a poor prognosis based on her lack of overall recovery over the last 6+ months. Patient has no acute issues, no change in care plan. Pulmonary edema -resolved chest x-ray done 11/13/2017, evidence of pulmonary edema, continue Lasix, monitor BMP every few weeks. 12/03 Chest x-ray on shows bilateral hazy airspace disease overall improved from November 13. Cardiomegaly. Increased furosemide 40 mg p.o. daily. Urinary retention No leukocytosis U/A with large leuk esterase but many squamous cells Culture grew Aerococcus, finished Augmentin November 07 - November 14. Moser replaced Elevated D-dimer Ordered 10/31 due to increased FiO2 demand. Since D-dimer elevated, CTA chest obtained to r/o PE which was negative Likely elevated in light of chronic illness RUE U/S negative for DVT - elevate R arm Left MCA stroke 5.5 mm of [id number] subfalcine herniation, diagnosed 04/24. Was not a candidate for thrombolysis at that time. Increasing edema seen on repeat CT 04/28 with a reduction in midline shift on another repeat on 04/30 Neurologic condition remained poor and she underwent trach 05/15/17 and PEG Persistent right-sided hemiparesis. Previously seen by neurology, signed off Previously seen by neurosurgery, signed off Continue daily ASA Patient has been attempting to pull tracheostomy out yesterday Hypertension / CHF Amlodipine 10 mg po daily, Doxazosin 1 mg peg daily, hydralazine 10 mg per per peg q8 hours. Clonidine 0.1 mg q6h prn Echo 10/06/17 LVSF EF = 25-30%. On furosemide 20 mg daily. 12/03 blood pressure severely elevated into the 160s systolic persistently. I will discontinue clonidine since clonidine has a potential negative chronotropic effect on the heart worsening bradycardia. Continue hydralazine and amlodipine. I will increase dose of hydralazine up to 25 mg PEG 3 times daily. Increase Lasix dose to 40 minutes p.o. daily. 12/05 BP much improved. Continue Hydralazine and amlodipine as above. Chronic Tracheostomy /respiratory failure 10/22/2017 Pulmonary toilet, trach care Duo nebs as needed Pulm following, appreciate assistance Large left pneumothorax Resolved Chest tube placed 05/07, discontinued 05/12/17 Hepatitis C LFTs normalized Negative genotype/viral load Diabetes mellitus SSI Novolin R High-dose scale Levemir insulin 8u Q12 FEN PEG tube feeding with Glucerna 1.5 goal 45 cc/hr, per nutrition recommendations Loose Stools patient has been checked for Cdiff on multiple occasions, most recently 11/04 Cdiff negative already on lactinex bid Continue Questran, start Lomotil. Anal Fissure continue wound care Bradycardia Upon review of records the patient was recently evaluated by radiology due to bradycardia on 11/19/17. At the time cardiology recommended observation and avoidance of AV du blocking agents. Patient currently on telemetry with an episode of bradycardia in the 30s which was asymptomatic as per RN. EKG obtained on 12/02 shows sinus rhythm with moderate T-wave abnormalities on anterolateral leads. Reviewed by me. We will obtain cardiac enzymes and trend. Discontinue clonidine as needed as these can have a negative chronotropic effect on the heart and worsen or cause bradycardia. Fever Temp of 100.0. Check urinalysis and CXR. Last CXR on 11/13 showed cardiomegaly with worsening pulmonary edema pattern and a probable trace left pleural effusion. 12/03 no further fevers reported. Chest x-ray reviewed by me shows bilateral hazy airspace disease overall improved from November 13. Cardiomegaly. Urinalysis is suggestive of urinary tract infection. 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 I will not start IV antibiotics unless there is fever. Urine culture is growing gram-negative rods. 12/04 Urine culture is growing Pseudomonas Fluorescens/[place]. Will remove moser catheter ad do voiding trials and repeat urinalysis via straight cath. 12/05 repeat UA negative. No need for antibiotic treatment. DVT prophylaxis Heparin Discharge Planning Very poor prognosis. Appreciate palliative care efforts. Problem Qualifiers (1) Acute respiratory failure: Qualified Codes: J96.00 - Acute respiratory failure, unspecified whether with hypoxia or hypercapnia (2) Sacral decubitus ulcer: Qualified Codes: L89.152 - Pressure ulcer of sacral region, stage 2 (3) Chronic respiratory failure: Qualified Codes: J96.11 - Chronic respiratory failure with hypoxia Aleksandar Alford MD Dec 05, 2017 19:57
[2017-12-06] VITALS (9 sets, daily range): BP systolic 126–154; BP diastolic 63–87; PULSE 68–84; RESP 16–20; TEMP 96.8–98.9; O2SAT 96–99
[2017-12-06] MEDS: INSULIN NovoLIN REGULAR SUPPLEMENTAL SCALE SQ SCH ×4 (00:30→17:45)
[2017-12-06] MEDS: hydrALAZINE HCL 10 MG TAB PEG SCH ×3 (06:08→21:24)
[2017-12-06] MEDS: ARTIFICIAL TEARS OPTH SOLN 15 ML BTL EACH EYE SCH ×3 (06:08→21:26)
[2017-12-06] MEDS: HEPARIN SODIUM - SQ 10,000 UNITS/ML VIAL SQ SCH ×3 (06:08→21:25)
[2017-12-06] MEDS: ASPIRIN 325 MG TAB DOBHOFF SCH (09:17)
[2017-12-06] MEDS: CALCIUM/VITAMIN D 250 MG/125 U TAB PEG SCH ×3 (09:17→17:45)
[2017-12-06] MEDS: LISINOPRIL 5 MG TAB PEG SCH (09:17)
[2017-12-06] MEDS: LANSOPRAZOLE SOLUTAB 30 MG TAB NG SCH (09:17)
[2017-12-06] MEDS: LACTOBACILLUS ACIDOPHILUS TAB PEG SCH ×2 (09:17→21:24)
[2017-12-06] MEDS: CHOLECALCIFEROL (VIT D3) 5000 UNIT CAP PEG SCH (09:17)
[2017-12-06] MEDS: FUROSEMIDE 40 MG TAB PO SCH (09:18)
[2017-12-06] MEDS: POVIDONE IODINE 10% SOLN 480 ML BTL EXTERNAL SCH ×2 (09:18→21:26)
[2017-12-06] MEDS: INSULIN DETEMIR 100 UNITS/ML VIAL SQ SCH ×2 (12:00)
--- NOTE | 2017-12-06 13:36 | HHI.PR ---
Subjective Remarks 12/06: Seen in her bedroom, discussed with nurse Miss Shields no new issues, no complaint no nausea, vomit or diarrhea Objective Vital Signs Date Time Temp Pulse Resp B/P (MAP) Pulse Ox O2 Delivery O2 Flow Rate FiO2 12/06/17 12:52 97.0 76 20 126/78 (94) 97 12/06/17 11:18 96.8 77 18 152/73 (99) 97 12/06/17 09:58 98 Trach Collar 6.00 28 12/06/17 07:54 T-Piece 5.00 28 12/06/17 07:54 75 12/06/17 03:43 98.9 75 18 137/69 (91) 97 12/06/17 00:00 98.4 83 20 152/87 (108) 98 12/05/17 23:00 70 12/05/17 20:00 98.0 73 18 161/80 (107) 100 12/05/17 19:45 97 T-piece 5.00 28 12/05/17 19:00 97 T-Piece 5.00 28 12/05/17 16:16 98.0 84 20 118/64 (82) 96 12/05/17 15:39 84 12/05/17 13:45 98.0 78 20 128/64 (85) 98 I/O 12/05/17 12/05/17 12/05/17 12/06/17 12/06/17 12/06/17 07:00 15:00 23:00 07:00 15:00 23:00 Intake Total 695 ml 2351 ml Output Total 600 ml 250 ml 350 ml Balance -600 ml 445 ml 2001 ml IV Total 0 ml 10 ml Tube Feeding 495 ml 1141 ml Tube Irrigant 1200 ml Other 200 ml Output Urine Total 600 ml 250 ml 350 ml # Voids 1 2 # Bowel Movements 1 2 2 Result Diagram: 12/02/17195712/02/171957 Imaging Last Impressions Chest X-Ray 12/02/17 0000 Signed Impressions: Service Date/Time: Saturday, December 02, 2017 19:12 - CONCLUSION: 1. Bilateral hazy air space disease overall improved from November 13. Cardiomegaly. Tracheostomy present. Jaime Velasquez MD Upper Extremity Ultrasound 11/04/17 0000 Signed Impressions: Service Date/Time: Saturday, November 04, 2017 09:57 - CONCLUSION: No thrombus observed. Subcutaneous edema noted. Deangelo Wren Jr., MD Abdomen X-Ray 11/04/17 0000 Signed Impressions: Service Date/Time: Saturday, November 04, 2017 11:58 - CONCLUSION: Gaseous distention of bowel loops could be ileus but unchanged. Benja Ramsey MD CT Angiography 11/01/17 0000 Signed Impressions: Service Date/Time: Wednesday, November 01, 2017 16:47 - CONCLUSION: No evidence for pulmonary embolism. Please see above. Choco Mustafa MD Thoracentesis 08/05/17 1535 Signed Impressions: Service Date/Time: Saturday, August 05, 2017 16:08 - CONCLUSION: Uncomplicated CT-guided thoracentesis. Sage Adler MD Chest Ultrasound 08/02/17 0000 Signed Impressions: Service Date/Time: Tuesday, August 01, 2017 22:06 - CONCLUSION: 1. Moderate right pleural effusion, as above. Alejo De La Vega MD Hip and Pelvis X-Ray 07/09/17 0000 Signed Impressions: Service Date/Time: Sunday, July 09, 2017 14:04 - CONCLUSION: Anatomic alignment. Ricardo Middleton MD FACR Liver Ultrasound 06/19/17 0000 Signed Impressions: Service Date/Time: June 13:20 - CONCLUSION: 1. Mildly increased echotexture of the liver characteristic of hepatic steatosis. 2. Gallbladder sludge. Obdulio Sam MD Head CT 05/15/17 0000 Signed Impressions: Service Date/Time: May 19:59 - CONCLUSION: 1. 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 2. No bleed or new/acute infarct. Obdulio Simms MD Gall Bladder Ultrasound 05/08/17 0000 Signed Impressions: Service Date/Time: May 08:23 - CONCLUSION: Focally unremarkable appearance of the gallbladder Obdulio Chun MD Abdomen/Pelvis CT 05/07/17 0000 Signed Impressions: Service Date/Time: Sunday, May 07, 2017 13:23 - CONCLUSION: 1. Large left pneumothorax. 2. Bilateral lower lobe consolidation and bilateral moderate size pleural effusions. 3. Significant soft tissue thickening of the right lateral chest wall and left gluteus muscle. 4. Mild ascites. The findings were called to Dr. Carney. Deangelo Zamora MD Chest CT 04/30/17 0000 Signed Impressions: Service Date/Time: Sunday, April 30, 2017 09:20 - CONCLUSION: 1. Bilateral pulmonary infiltrates more pronounced within the lower lobes with tiny bilateral pleural effusions. Material seen filling the lower lobe bronchi bilaterally either related to purulent material or perhaps mucus plugging. Deangelo Wren Jr., MD Carotid Artery Ultrasound 04/24/17 0000 Signed Impressions: Service Date/Time: April 09:45 - CONCLUSION: 1. No hemodynamically significant carotid artery stenosis. Arnie Middleton MD Hip X-Ray 04/21/17 0000 Signed Impressions: Service Date/Time: Friday, April 21, 2017 11:36 - CONCLUSION: Fluoroscopic images during placement of intramedullary siomara left femur. Benja Ramsey MD Procedures Tracheostomy 05/15/17 PEG 05/16/17 Other Results Laboratory Tests Test 04/20/17 10:10 04/20/17 16:25 04/21/17 04:50 04/26/17 12:20 Venous Blood pH 7.25 Venous Blood Partial Pressure CO2 53 mmHg Venous Blood Partial Pressure O2 22 mmHg Venous Blood HCO3 23 mmol/L Venous Blood Oxygen Saturation 25 % Venous Blood Oxygen Content 3.7 Vol % Venous Blood Base Excess -3.6 mmol/L Nasal Screen MRSA (PCR) MRSA NOT DETECTED 25-Hydroxy Vitamin D Total 27.4 ng/ML B-Hydroxybutyrate 0.93 MMOL/L Urine Yeast (Budding) FEW Test 04/30/17 04:36 05/04/17 09:42 05/07/17 04:21 05/07/17 21:00 Serum Osmolality 345 MOSM/KG Vancomycin Level Trough 23.8 MCG/ML Blood Urea Nitrogen 36 MG/DL Creatinine 0.37 MG/DL Random Glucose 239 MG/DL Total Protein 5.1 GM/DL Albumin 1.5 GM/DL Calcium Level 7.7 MG/DL Alkaline Phosphatase 1931 U/L Aspartate Amino Transf (AST/SGOT) 217 U/L Alanine Aminotransferase (ALT/SGPT) 55 U/L Gamma Glutamyl Transpeptidase 787 U/L Total Bilirubin 1.2 MG/DL Direct Bilirubin 0.8 MG/DL Sodium Level 145 MEQ/L Potassium Level 3.9 MEQ/L Chloride Level 109 MEQ/L Carbon Dioxide Level 27.8 MEQ/L Lactate Dehydrogenase 532 U/L Total Creatine Kinase 82 U/L Amylase Level 21 U/L Lipase 48 U/L Test 05/08/17 04:44 05/08/17 21:10 05/09/17 14:04 05/11/17 04:55 Stomatocytes 1+ Total Alkaline Phosphatase 1484 U/L Alkaline Phosphatase Iso-Intestine 0 % Alkaline Phosphatase Iso-Bone 41 % Alkaline Phosphatase Iso-Liver 59 % Hepatitis A IgM Antibody NEGATIVE Hepatitis B Surface Antigen NEGATIVE Hepatitis B Core IgM Antibody NEGATIVE Hepatitis C Antibody REACTIVE Procalcitonin 0.61 ng/mL Hepatitis C RNA Genotype NOT DETECTED Hepatitis C RNA (PCR) IUs/ml LESS THAN 15 IU/mL Hepatitis C RNA (PCR) log IUs/ml LESS THAN 1.18 Blood Urea Nitrogen 29 MG/DL Creatinine 0.37 MG/DL Random Glucose 200 MG/DL Total Protein 3.1 GM/DL Albumin 0.7 GM/DL Calcium Level 6.6 MG/DL Alkaline Phosphatase 549 U/L Aspartate Amino Transf (AST/SGOT) 30 U/L Alanine Aminotransferase (ALT/SGPT) 14 U/L Total Bilirubin 0.6 MG/DL Direct Bilirubin 0.2 MG/DL Sodium Level 145 MEQ/L Potassium Level 3.7 MEQ/L Chloride Level 106 MEQ/L Carbon Dioxide Level 35.5 MEQ/L Indirect Bilirubin 0.4 MG/DL Test 05/17/17 06:25 07/11/17 03:58 07/15/17 09:00 07/20/17 09:32 Protein Corrected Calcium 8.4 MG/DL Prealbumin 20 MG/DL Blood Gas Liter Flow 10 L/M Urine Amorphous Sediment OCC Test 08/04/17 16:40 09/09/17 05:30 09/30/17 08:08 10/03/17 20:20 Activated Partial Thromboplast Time 31.4 SEC Urine Mucus FEW /lpf Toxic Vacuolation PRESENT B-Type Natriuretic Peptide 1102 PG/ML Test 10/03/17 23:27 10/17/17 18:04 10/19/17 07:10 10/21/17 09:15 Blood Gas Puncture Site RT RADIAL Blood Gas Patient Temperature 98.6 Blood Gas HCO3 27 mmol/L Blood Gas Base Excess 2.6 mmol/L Blood Gas Oxygen Saturation 98 % Arterial Blood pH 7.38 Arterial Blood Partial Pressure CO2 47 mmHg Arterial Blood Partial Pressure O2 450 mmHg Arterial Blood Oxygen Content 12.6 Vol % Arterial Blood Carboxyhemoglobin 1.0 % Arterial Blood Methemoglobin 1.1 % Blood Gas Hemoglobin 8.3 G/DL Oxygen Delivery Device VENTILATOR Blood Gas Ventilator Setting PRVC/AC Blood Gas Inspired Oxygen 100 % Basophils % 1 % Promyelocytes 2 % Hematology Comments Nucleated Red Blood Cells 1 /100 WBC [place] Bodies PRESENT Test 10/24/17 14:41 10/25/17 07:10 10/27/17 08:11 10/28/17 07:27 Dohle Bodies PRESENT Metamyelocytes 2 % Toxic Granulation 1+ Atypical Lymphocytes % Polychromasia 2.0 % Test 10/29/17 09:12 10/31/17 22:20 11/04/17 17:00 11/09/17 06:42 Red Cell Morphology Comment NORMAL D-Dimer Quantitative (PE/DVT) 1.94 MG/L FEU Stool C. difficile Toxin (PCR) NEGATIVE Stl C. difficile Toxin Epiderm 027 PRESUMPTIVE NEGATIVE Eosinophils % 2 % Basophilic Stippling FAINT Test 11/12/17 08:06 11/16/17 09:47 11/20/17 08:15 11/22/17 11:54 Lactic Acid Level 1.9 mmol/L Hemoglobin A1c 5.3 % Free Thyroxine 0.79 NG/DL Thyroid Stimulating Hormone 3rd Gen 5.270 uIU/ML Differential Total Cells Counted 100 Neutrophils % (Manual) 64 % Band Neutrophils % 12 % Lymphocytes % 14 % Monocytes % 9 % Neutrophils # (Manual) 6.7 TH/MM3 Myelocytes 1 % Blood Urea Nitrogen 27 MG/DL Creatinine 0.46 MG/DL Random Glucose 206 MG/DL Albumin 2.5 GM/DL Calcium Level 9.0 MG/DL Phosphorus Level 3.3 MG/DL Magnesium Level 2.0 MG/DL Sodium Level 137 MEQ/L Potassium Level 4.4 MEQ/L Chloride Level 100 MEQ/L Carbon Dioxide Level 30.4 MEQ/L Test 12/02/17 19:58 12/02/17 20:00 12/05/17 06:58 12/05/17 07:30 White Blood Count 10.3 TH/MM3 Red Blood Count 3.18 MIL/MM3 Hemoglobin 10.9 GM/DL Hematocrit 31.3 % Mean Corpuscular Volume 98.4 FL Mean Corpuscular Hemoglobin 34.2 PG Mean Corpuscular Hemoglobin Concent 34.7 % Red Cell Distribution Width 14.7 % Platelet Count 294 TH/MM3 Mean Platelet Volume 9.7 FL Neutrophils (%) (Auto) 63.6 % Lymphocytes (%) (Auto) 24.8 % Monocytes (%) (Auto) 7.6 % Eosinophils (%) (Auto) 3.0 % Basophils (%) (Auto) 1.0 % Neutrophils # (Auto) 6.6 TH/MM3 Lymphocytes # (Auto) 2.6 TH/MM3 Monocytes # (Auto) 0.8 TH/MM3 Eosinophils # (Auto) 0.3 TH/MM3 Basophils # (Auto) 0.1 TH/MM3 CBC Comment AUTO DIFF Differential Comment AUTO DIFF CONFIRMED Platelet Estimate NORMAL Platelet Morphology Comment ENLARGED Prothrombin Time 10.7 SEC Prothromb Time International Ratio 1.1 RATIO Blood Urea Nitrogen 35 MG/DL Creatinine 0.59 MG/DL Random Glucose 143 MG/DL Total Protein 7.2 GM/DL Albumin 2.8 GM/DL Calcium Level 9.2 MG/DL Magnesium Level 2.0 MG/DL Alkaline Phosphatase 149 U/L Aspartate Amino Transf (AST/SGOT) 28 U/L Alanine Aminotransferase (ALT/SGPT) 27 U/L Total Bilirubin 0.2 MG/DL Sodium Level 139 MEQ/L Potassium Level 4.6 MEQ/L Chloride Level 101 MEQ/L Carbon Dioxide Level 32.8 MEQ/L Anion Gap 5 MEQ/L Estimat Glomerular Filtration Rate 99 ML/MIN Urine WBC Clumps MANY Urine Bacteria RARE /hpf Troponin I LESS THAN 0.02 NG/ML Urine Color LIGHT-YELLOW Urine Turbidity CLEAR Urine pH 7.5 Urine Specific [place] 1.014 Urine Protein NEG mg/dL Urine Glucose (UA) NEG mg/dL Urine Ketones NEG mg/dL Urine Occult Blood NEG Urine Nitrite NEG Urine Bilirubin NEG Urine Urobilinogen LESS THAN 2.0 MG/DL Urine Leukocyte Esterase NEG Urine RBC 2 /hpf Urine WBC 2 /hpf Urine Squamous Epithelial Cells <1 /hpf Urine Transitional Epithelial Cells <1 /hpf Urine Hyaline Casts 2 /lpf Microscopic Urinalysis Comment CATH-CULT NOT IND Objective Remarks GENERAL: no acute distress. SKIN: Warm and dry. HEAD: Normocephalic. EYES: No scleral icterus. No injection or drainage. NECK: Supple, trachea midline. No JVD or lymphadenopathy. T piece in place, no redness over trach insertion site. CARDIOVASCULAR: Regular rate and rhythm without murmurs, gallops, or rubs. RESPIRATORY: Clear to auscultation BL. NO rhonchi or rales auscultated. GASTROINTESTINAL: Abdomen soft, non-tender, nondistended. PEG tube in place. MUSCULOSKELETAL: No cyanosis, or edema. Medications and IVs Current Medications Medications (Trade) Dose Ordered Sig/Zeferino Route Start Time Stop Time Status Last Admin (Narcan Inj) 0.4 mg UNSCH PRN IV 04/20/17 17:15 (Aspirin) 325 mg DAILY DOBHOFF 04/27/17 09:00 12/06/17 09:17 (Prevacid Odt) 30 mg DAILY NG 05/08/17 09:00 12/06/17 09:17 (Tears Naturale Opth Soln) 1 drop Q8HR EACH EYE 06/12/17 07:15 12/06/17 13:18 (Nitroglycerin 2% Oint) 2 inch Q6H PRN TOPICAL 06/21/17 08:00 06/30/17 14:37 (Heparin Inj) 5,000 units Q8HR SQ 07/15/17 08:00 12/06/17 06:08 (Pill Splitter) 1 ea UNSCH PRN OTHER 09/05/17 11:00 (Apresoline) 10 mg Q8HR PEG 09/24/17 14:00 12/06/17 06:08 (Norvasc) 10 mg DAILY PEG 10/04/17 09:00 12/06/17 09:00 (Oscal-D 250-125) 250 mg TID PEG 10/03/17 13:00 12/06/17 12:08 (Vitamin D3) 5,000 units DAILY PEG 10/04/17 09:00 12/06/17 09:17 (Catapres) 0.1 mg Q6H PRN PEG 10/03/17 12:30 11/27/17 00:23 (Lactinex) 1 tab Q12HR PEG 10/03/17 21:00 12/06/17 09:17 (Miralax) 17 gm DAILY PRN PEG 10/03/17 12:00 (Beneprotein Powder) 1 pack TID PRN G-TUBE 10/03/17 12:00 (Albuterol Neb) 2.5 mg Q2HR NEB PRN NEB 10/03/17 21:45 10/19/17 22:09 (Tylenol 650 Mg/ 20 ml Liq) 650 mg Q6H PRN PEG 10/26/17 06:45 (Roxicodone Intensol Liq) 5 mg Q6H PRN PO 10/29/17 11:00 (D50w (Vial) Inj) 50 ml UNSCH PRN IV PUSH 11/04/17 12:30 (Glucagon Inj) 1 mg UNSCH PRN OTHER 11/04/17 12:30 (NovoLIN R SUPPLEMENTAL SCALE) 1 Q6H SQ 11/04/17 12:30 12/06/17 12:05 (Reglan Liq) 10 mg Q8HR PO 11/07/17 14:30 Future Hold 11/18/17 14:08 (Questran Light Pkt) 4 gm BID PRN PEG 11/12/17 13:30 11/25/17 09:59 (Prinivil) 5 mg DAILY PEG 11/23/17 09:00 12/06/17 09:17 (Lomotil 2.5-0.025 Mg Liq) 5 ml Q6H PRN PO 11/25/17 13:15 12/03/17 15:01 (Levemir Inj) 12 units Q12H SQ 12/03/17 00:00 12/06/17 12:00 (Lasix) 40 mg DAILY PO 12/04/17 09:00 12/06/17 09:18 (Betadine 10% Top Soln) 1 applic Q12HR EXTERNAL 12/06/17 10:00 12/06/17 09:18 A/P Assessment and Plan (1) Acute ischemic left middle cerebral artery (MCA) stroke ICD Code: I63.512 - Cerebral infarction due to unspecified occlusion or stenosis of left middle cerebral artery Status: Acute (2) Acute respiratory failure ICD Code: J96.00 - Acute respiratory failure, unspecified whether with hypoxia or hypercapnia (3) Right hemiplegia ICD Code: G81.91 - Hemiplegia, unspecified affecting right dominant side Status: Acute (4) Sacral decubitus ulcer ICD Code: L89.159 - Pressure ulcer of sacral region, unspecified stage Status: Chronic (5) HCAP (healthcare-associated pneumonia) ICD Code: J18.9 - Pneumonia, unspecified organism Status: Resolved (6) 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 She underwent ORIF on 04/21/17 and on 04/24 a stroke alert was called as she was found to have right hemiparesis with left gaze. She has a poor prognosis based on her lack of overall recovery over the last 6+ months. Patient has no acute issues, no change in care plan. Pulmonary edema -resolved chest x-ray done 11/13/2017, evidence of pulmonary edema, continue Lasix, monitor BMP every few weeks. 12/03 Chest x-ray on shows bilateral hazy airspace disease overall improved from November 13. Cardiomegaly. Increased furosemide 40 mg p.o. daily. Urinary retention No leukocytosis U/A with large leuk esterase but many squamous cells Culture grew Aerococcus, finished Augmentin November 07 - November 14. Leavitt replaced Elevated D-dimer Ordered 10/31 due to increased FiO2 demand. Since D-dimer elevated, CTA chest obtained to r/o PE which was negative Likely elevated in light of chronic illness RUE U/S negative for DVT - elevate R arm Left MCA stroke 5.5 mm of [id number] subfalcine herniation, diagnosed 04/24. Was not a candidate for thrombolysis at that time. Increasing edema seen on repeat CT 04/28 with a reduction in midline shift on another repeat on 04/30 Neurologic condition remained poor and she underwent trach 05/15/17 and PEG Persistent right-sided hemiparesis. Previously seen by neurology, signed off Previously seen by neurosurgery, signed off Continue daily ASA Hypertension / CHF Controlled Continue Amlodipine, Doxazosin, Hydralazine, Clonidine, Diuretics. Echo 10/06/17 LVSF EF = 25-30%. On furosemide 20 mg daily Chronic Tracheostomy /respiratory failure 10/22/2017 Pulmonary toilet, trach care Duo nebs as needed Pulm following, appreciate assistance Large left pneumothorax Resolved Chest tube placed 05/07, discontinued 05/12/17 Hepatitis C LFTs normalized Negative genotype/viral load Diabetes mellitus SSI Novolin R High-dose scale Levemir insulin 8u Q12 FEN PEG tube feeding with Glucerna 1.5 goal 45 cc/hr, per nutrition recommendations Loose Stools patient has been checked for Cdiff on multiple occasions, most recently 11/04 Cdiff negative already on lactinex bid Continue Questran, start Lomotil. Anal Fissure continue wound care Bradycardia Upon review of records the patient was recently evaluated by radiology due to bradycardia on 11/19/17. At the time cardiology recommended observation and avoidance of AV du blocking agents. Patient currently on telemetry with an episode of bradycardia in the 30s which was asymptomatic as per RN. EKG obtained on 12/02 shows sinus rhythm with moderate T-wave abnormalities on anterolateral leads. Reviewed by me. Fever Temp of 100.0. Check urinalysis and CXR. Last CXR on 11/13 showed cardiomegaly with worsening pulmonary edema pattern and a probable trace left pleural effusion. 12/03 no further fevers reported. Chest x-ray reviewed by me shows bilateral hazy airspace disease overall improved from November 13. Cardiomegaly. Urinalysis is suggestive of urinary tract infection. 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 I will not start IV antibiotics unless there is fever. Urine culture is growing gram-negative rods. No changes to anterior assessment. DVT prophylaxis Heparin Discharge Planning Very poor prognosis. Appreciate palliative care efforts. Calvin Gerardo MD Dec 06, 2017 13:36
--- NOTE | 2017-12-06 18:13 | HHI.PR ---
Subjective Remarks No events overnight. Patient is on TP's with 40% FIO2. . Tolerating tube feeds. Tolerates TF No fever No new complaint Calm, sleeping Objective Vital Signs Vital Signs Date Time Temp Pulse Resp B/P (MAP) Pulse Ox O2 Delivery O2 Flow Rate FiO2 12/06/17 16:14 97.0 84 20 140/63 (88) 98 12/06/17 15:49 68 12/06/17 12:52 97.0 76 20 126/78 (94) 97 12/06/17 11:18 96.8 77 18 152/73 (99) 97 12/06/17 09:58 98 Trach Collar 6.00 28 12/06/17 07:54 T-Piece 5.00 28 12/06/17 07:54 75 12/06/17 03:43 98.9 75 18 137/69 (91) 97 12/06/17 00:00 98.4 83 20 152/87 (108) 98 12/05/17 23:00 70 12/05/17 20:00 98.0 73 18 161/80 (107) 100 12/05/17 19:45 97 T-piece 5.00 28 12/05/17 19:00 97 T-Piece 5.00 28 I/O 12/05/17 12/05/17 12/05/17 12/06/17 12/06/17 12/06/17 07:00 15:00 23:00 07:00 15:00 23:00 Intake Total 695 ml 2351 ml 950 ml Output Total 600 ml 250 ml 350 ml 900 ml Balance -600 ml 445 ml 2001 ml 50 ml IV Total 0 ml 10 ml 0 ml Tube Feeding 495 ml 1141 ml 450 ml Tube Irrigant 1200 ml Other 200 ml 500 ml Output Urine Total 600 ml 250 ml 350 ml 900 ml # Voids 1 2 # Bowel Movements 1 2 2 Result Diagram: 12/02/17195712/02/171957 Objective Remarks GENERAL: Elderly female,NAD SKIN: Warm and dry. HEAD: Normocephalic. EYES: No scleral icterus. No injection or drainage. NECK: Supple, trachea midline. No JVD or lymphadenopathy. + trach CARDIOVASCULAR: Regular rate and rhythm without murmurs, gallops, or rubs. RESPIRATORY: Breath sounds equal bilaterally. No accessory muscle use. GASTROINTESTINAL: Abdomen soft, non-tender, nondistended. MUSCULOSKELETAL: No cyanosis, or edema. BACK: Nontender without obvious deformity. No CVA tenderness. A/P Assessment and Plan Chronic resp failure, ,S/P Trach CVA Pneumonia Calcified Granuloma LLL Pseudomonas Tracheobronchitis, PLAN: Continue with TP's, keep sats >92% Bronchodilators, Pulm toilet, trach care CT chest 11/01: No PE,adenopathy in the right paratracheal, subcarinal and hilar regions with numerous prominent lymph nodes seen. Cont TF- GI/DVT prophylaxis Continue treatment plan. Chris Rizo MD Dec 06, 2017 18:13
[2017-12-06] MEDS: oxyCODONE HCL ORAL CONC 5 MG/0.25 ML SYRINGE PO PRN (22:22)
[2017-12-07] VITALS (9 sets, daily range): BP systolic 125–136; BP diastolic 65–73; PULSE 69–94; RESP 16–18; TEMP 97.5–100.1; O2SAT 97–98
[2017-12-07] MEDS: INSULIN DETEMIR 100 UNITS/ML VIAL SQ SCH ×2 (00:13→13:18)
[2017-12-07] MEDS: INSULIN NovoLIN REGULAR SUPPLEMENTAL SCALE SQ SCH ×4 (00:13→17:55)
[2017-12-07] MEDS: HEPARIN SODIUM - SQ 10,000 UNITS/ML VIAL SQ SCH ×3 (06:11→22:20)
[2017-12-07] MEDS: ARTIFICIAL TEARS OPTH SOLN 15 ML BTL EACH EYE SCH ×3 (06:12→22:20)
[2017-12-07] MEDS: hydrALAZINE HCL 10 MG TAB PEG SCH ×3 (06:12→22:20)
[2017-12-07] MEDS: LACTOBACILLUS ACIDOPHILUS TAB PEG SCH ×2 (09:58→22:19)
[2017-12-07] MEDS: CHOLECALCIFEROL (VIT D3) 5000 UNIT CAP PEG SCH (09:58)
[2017-12-07] MEDS: CALCIUM/VITAMIN D 250 MG/125 U TAB PEG SCH ×3 (09:58→17:40)
[2017-12-07] MEDS: FUROSEMIDE 40 MG TAB PO SCH (09:59)
[2017-12-07] MEDS: LANSOPRAZOLE SOLUTAB 30 MG TAB NG SCH (09:59)
[2017-12-07] MEDS: LISINOPRIL 5 MG TAB PEG SCH (09:59)
[2017-12-07] MEDS: ASPIRIN 325 MG TAB DOBHOFF SCH (09:59)
[2017-12-07] MEDS: POVIDONE IODINE 10% SOLN 480 ML BTL EXTERNAL SCH ×2 (09:59→22:20)
--- NOTE | 2017-12-07 11:43 | HHI.PR ---
Subjective Remarks 12/07: Seen in her bedroom, discussed with nurse Miss Chadwick no nausea, vomit or diarrhea. Objective Vital Signs Date Time Temp Pulse Resp B/P (MAP) Pulse Ox O2 Delivery O2 Flow Rate FiO2 12/07/17 08:29 97 T-piece 5.00 28 12/07/17 07:20 96 T-Piece 5.00 28 12/07/17 07:20 80 12/07/17 04:00 98 T-Piece 5.00 28 12/07/17 04:00 97.5 82 16 135/67 (89) 98 12/06/17 20:00 96 T-piece 28 12/06/17 20:00 83 12/06/17 20:00 98 T-Piece 6.00 28 12/06/17 20:00 97.0 81 16 153/75 (101) 98 12/06/17 16:14 97.0 84 20 140/63 (88) 98 12/06/17 15:49 68 12/06/17 12:52 97.0 76 20 126/78 (94) 97 I/O 12/06/17 12/06/17 12/06/17 12/07/17 12/07/17 12/07/17 07:00 15:00 23:00 07:00 15:00 23:00 Intake Total 2351 ml 950 ml 1160 ml Output Total 350 ml 900 ml 400 ml Balance 2001 ml 50 ml 760 ml IV Total 10 ml 0 ml Tube Feeding 1141 ml 450 ml 540 ml Tube Irrigant 1200 ml 120 ml Other 500 ml 500 ml Output Urine Total 350 ml 900 ml 400 ml # Bowel Movements 2 1 Imaging Last Impressions Chest X-Ray 12/02/17 0000 Signed Impressions: Service Date/Time: Saturday, December 02, 2017 19:12 - CONCLUSION: 1. Bilateral hazy air space disease overall improved from November 13. Cardiomegaly. Tracheostomy present. Jaime Velasquez MD Upper Extremity Ultrasound 11/04/17 0000 Signed Impressions: Service Date/Time: Saturday, November 04, 2017 09:57 - CONCLUSION: No thrombus observed. Subcutaneous edema noted. Deangelo Wren Jr., MD Abdomen X-Ray 11/04/17 0000 Signed Impressions: Service Date/Time: Saturday, November 04, 2017 11:58 - CONCLUSION: Gaseous distention of bowel loops could be ileus but unchanged. Benja Ramsey MD CT Angiography 11/01/17 0000 Signed Impressions: Service Date/Time: Wednesday, November 01, 2017 16:47 - CONCLUSION: No evidence for pulmonary embolism. Please see above. Choco Mustafa MD Thoracentesis 08/05/17 1535 Signed Impressions: Service Date/Time: Saturday, August 05, 2017 16:08 - CONCLUSION: Uncomplicated CT-guided thoracentesis. Sage Adler MD Chest Ultrasound 08/02/17 0000 Signed Impressions: Service Date/Time: Tuesday, August 01, 2017 22:06 - CONCLUSION: 1. Moderate right pleural effusion, as above. Alejo De La Vega MD Hip and Pelvis X-Ray 07/09/17 0000 Signed Impressions: Service Date/Time: Sunday, July 09, 2017 14:04 - CONCLUSION: Anatomic alignment. Ricardo Middleton MD FACR Liver Ultrasound 06/19/17 0000 Signed Impressions: Service Date/Time: June 13:20 - CONCLUSION: 1. Mildly increased echotexture of the liver characteristic of hepatic steatosis. 2. Gallbladder sludge. Obdulio Sam MD Head CT 05/15/17 0000 Signed Impressions: Service Date/Time: May 19:59 - CONCLUSION: 1. 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 2. No bleed or new/acute infarct. Obdulio Simms MD Gall Bladder Ultrasound 05/08/17 0000 Signed Impressions: Service Date/Time: May 08:23 - CONCLUSION: Focally unremarkable appearance of the gallbladder Obdulio Chun MD Abdomen/Pelvis CT 05/07/17 0000 Signed Impressions: Service Date/Time: Sunday, May 07, 2017 13:23 - CONCLUSION: 1. Large left pneumothorax. 2. Bilateral lower lobe consolidation and bilateral moderate size pleural effusions. 3. Significant soft tissue thickening of the right lateral chest wall and left gluteus muscle. 4. Mild ascites. The findings were called to Dr. Carney. Deangelo Zamora MD Chest CT 04/30/17 0000 Signed Impressions: Service Date/Time: Sunday, April 30, 2017 09:20 - CONCLUSION: 1. Bilateral pulmonary infiltrates more pronounced within the lower lobes with tiny bilateral pleural effusions. Material seen filling the lower lobe bronchi bilaterally either related to purulent material or perhaps mucus plugging. Deangelo Wren Jr., MD Carotid Artery Ultrasound 04/24/17 0000 Signed Impressions: Service Date/Time: April 09:45 - CONCLUSION: 1. No hemodynamically significant carotid artery stenosis. Arnie Middleton MD Hip X-Ray 04/21/17 0000 Signed Impressions: Service Date/Time: Friday, April 21, 2017 11:36 - CONCLUSION: Fluoroscopic images during placement of intramedullary siomara left femur. Benja Ramsey MD Procedures Tracheostomy 05/15/17 PEG 05/16/17 Other Results Laboratory Tests Test 04/20/17 10:10 04/20/17 16:25 04/21/17 04:50 04/26/17 12:20 Venous Blood pH 7.25 Venous Blood Partial Pressure CO2 53 mmHg Venous Blood Partial Pressure O2 22 mmHg Venous Blood HCO3 23 mmol/L Venous Blood Oxygen Saturation 25 % Venous Blood Oxygen Content 3.7 Vol % Venous Blood Base Excess -3.6 mmol/L Nasal Screen MRSA (PCR) MRSA NOT DETECTED 25-Hydroxy Vitamin D Total 27.4 ng/ML B-Hydroxybutyrate 0.93 MMOL/L Urine Yeast (Budding) FEW Test 04/30/17 04:36 05/04/17 09:42 05/07/17 04:21 05/07/17 21:00 Serum Osmolality 345 MOSM/KG Vancomycin Level Trough 23.8 MCG/ML Blood Urea Nitrogen 36 MG/DL Creatinine 0.37 MG/DL Random Glucose 239 MG/DL Total Protein 5.1 GM/DL Albumin 1.5 GM/DL Calcium Level 7.7 MG/DL Alkaline Phosphatase 1931 U/L Aspartate Amino Transf (AST/SGOT) 217 U/L Alanine Aminotransferase (ALT/SGPT) 55 U/L Gamma Glutamyl Transpeptidase 787 U/L Total Bilirubin 1.2 MG/DL Direct Bilirubin 0.8 MG/DL Sodium Level 145 MEQ/L Potassium Level 3.9 MEQ/L Chloride Level 109 MEQ/L Carbon Dioxide Level 27.8 MEQ/L Lactate Dehydrogenase 532 U/L Total Creatine Kinase 82 U/L Amylase Level 21 U/L Lipase 48 U/L Test 05/08/17 04:44 05/08/17 21:10 05/09/17 14:04 05/11/17 04:55 Stomatocytes 1+ Total Alkaline Phosphatase 1484 U/L Alkaline Phosphatase Iso-Intestine 0 % Alkaline Phosphatase Iso-Bone 41 % Alkaline Phosphatase Iso-Liver 59 % Hepatitis A IgM Antibody NEGATIVE Hepatitis B Surface Antigen NEGATIVE Hepatitis B Core IgM Antibody NEGATIVE Hepatitis C Antibody REACTIVE Procalcitonin 0.61 ng/mL Hepatitis C RNA Genotype NOT DETECTED Hepatitis C RNA (PCR) IUs/ml LESS THAN 15 IU/mL Hepatitis C RNA (PCR) log IUs/ml LESS THAN 1.18 Blood Urea Nitrogen 29 MG/DL Creatinine 0.37 MG/DL Random Glucose 200 MG/DL Total Protein 3.1 GM/DL Albumin 0.7 GM/DL Calcium Level 6.6 MG/DL Alkaline Phosphatase 549 U/L Aspartate Amino Transf (AST/SGOT) 30 U/L Alanine Aminotransferase (ALT/SGPT) 14 U/L Total Bilirubin 0.6 MG/DL Direct Bilirubin 0.2 MG/DL Sodium Level 145 MEQ/L Potassium Level 3.7 MEQ/L Chloride Level 106 MEQ/L Carbon Dioxide Level 35.5 MEQ/L Indirect Bilirubin 0.4 MG/DL Test 05/17/17 06:25 07/11/17 03:58 07/15/17 09:00 07/20/17 09:32 Protein Corrected Calcium 8.4 MG/DL Prealbumin 20 MG/DL Blood Gas Liter Flow 10 L/M Urine Amorphous Sediment OCC Test 08/04/17 16:40 09/09/17 05:30 09/30/17 08:08 10/03/17 20:20 Activated Partial Thromboplast Time 31.4 SEC Urine Mucus FEW /lpf Toxic Vacuolation PRESENT B-Type Natriuretic Peptide 1102 PG/ML Test 10/03/17 23:27 10/17/17 18:04 10/19/17 07:10 10/21/17 09:15 Blood Gas Puncture Site RT RADIAL Blood Gas Patient Temperature 98.6 Blood Gas HCO3 27 mmol/L Blood Gas Base Excess 2.6 mmol/L Blood Gas Oxygen Saturation 98 % Arterial Blood pH 7.38 Arterial Blood Partial Pressure CO2 47 mmHg Arterial Blood Partial Pressure O2 450 mmHg Arterial Blood Oxygen Content 12.6 Vol % Arterial Blood Carboxyhemoglobin 1.0 % Arterial Blood Methemoglobin 1.1 % Blood Gas Hemoglobin 8.3 G/DL Oxygen Delivery Device VENTILATOR Blood Gas Ventilator Setting PRVC/AC Blood Gas Inspired Oxygen 100 % Basophils % 1 % Promyelocytes 2 % Hematology Comments Nucleated Red Blood Cells 1 /100 WBC [place] Bodies PRESENT Test 10/24/17 14:41 10/25/17 07:10 10/27/17 08:11 10/28/17 07:27 Dohle Bodies PRESENT Metamyelocytes 2 % Toxic Granulation 1+ Atypical Lymphocytes % Polychromasia 2.0 % Test 10/29/17 09:12 10/31/17 22:20 11/04/17 17:00 11/09/17 06:42 Red Cell Morphology Comment NORMAL D-Dimer Quantitative (PE/DVT) 1.94 MG/L FEU Stool C. difficile Toxin (PCR) NEGATIVE Stl C. difficile Toxin Epiderm 027 PRESUMPTIVE NEGATIVE Eosinophils % 2 % Basophilic Stippling FAINT Test 11/12/17 08:06 11/16/17 09:47 11/20/17 08:15 11/22/17 11:54 Lactic Acid Level 1.9 mmol/L Hemoglobin A1c 5.3 % Free Thyroxine 0.79 NG/DL Thyroid Stimulating Hormone 3rd Gen 5.270 uIU/ML Differential Total Cells Counted 100 Neutrophils % (Manual) 64 % Band Neutrophils % 12 % Lymphocytes % 14 % Monocytes % 9 % Neutrophils # (Manual) 6.7 TH/MM3 Myelocytes 1 % Blood Urea Nitrogen 27 MG/DL Creatinine 0.46 MG/DL Random Glucose 206 MG/DL Albumin 2.5 GM/DL Calcium Level 9.0 MG/DL Phosphorus Level 3.3 MG/DL Magnesium Level 2.0 MG/DL Sodium Level 137 MEQ/L Potassium Level 4.4 MEQ/L Chloride Level 100 MEQ/L Carbon Dioxide Level 30.4 MEQ/L Test 12/02/17 19:58 12/02/17 20:00 12/05/17 06:58 12/05/17 07:30 White Blood Count 10.3 TH/MM3 Red Blood Count 3.18 MIL/MM3 Hemoglobin 10.9 GM/DL Hematocrit 31.3 % Mean Corpuscular Volume 98.4 FL Mean Corpuscular Hemoglobin 34.2 PG Mean Corpuscular Hemoglobin Concent 34.7 % Red Cell Distribution Width 14.7 % Platelet Count 294 TH/MM3 Mean Platelet Volume 9.7 FL Neutrophils (%) (Auto) 63.6 % Lymphocytes (%) (Auto) 24.8 % Monocytes (%) (Auto) 7.6 % Eosinophils (%) (Auto) 3.0 % Basophils (%) (Auto) 1.0 % Neutrophils # (Auto) 6.6 TH/MM3 Lymphocytes # (Auto) 2.6 TH/MM3 Monocytes # (Auto) 0.8 TH/MM3 Eosinophils # (Auto) 0.3 TH/MM3 Basophils # (Auto) 0.1 TH/MM3 CBC Comment AUTO DIFF Differential Comment AUTO DIFF CONFIRMED Platelet Estimate NORMAL Platelet Morphology Comment ENLARGED Prothrombin Time 10.7 SEC Prothromb Time International Ratio 1.1 RATIO Blood Urea Nitrogen 35 MG/DL Creatinine 0.59 MG/DL Random Glucose 143 MG/DL Total Protein 7.2 GM/DL Albumin 2.8 GM/DL Calcium Level 9.2 MG/DL Magnesium Level 2.0 MG/DL Alkaline Phosphatase 149 U/L Aspartate Amino Transf (AST/SGOT) 28 U/L Alanine Aminotransferase (ALT/SGPT) 27 U/L Total Bilirubin 0.2 MG/DL Sodium Level 139 MEQ/L Potassium Level 4.6 MEQ/L Chloride Level 101 MEQ/L Carbon Dioxide Level 32.8 MEQ/L Anion Gap 5 MEQ/L Estimat Glomerular Filtration Rate 99 ML/MIN Urine WBC Clumps MANY Urine Bacteria RARE /hpf Troponin I LESS THAN 0.02 NG/ML Urine Color LIGHT-YELLOW Urine Turbidity CLEAR Urine pH 7.5 Urine Specific [place] 1.014 Urine Protein NEG mg/dL Urine Glucose (UA) NEG mg/dL Urine Ketones NEG mg/dL Urine Occult Blood NEG Urine Nitrite NEG Urine Bilirubin NEG Urine Urobilinogen LESS THAN 2.0 MG/DL Urine Leukocyte Esterase NEG Urine RBC 2 /hpf Urine WBC 2 /hpf Urine Squamous Epithelial Cells <1 /hpf Urine Transitional Epithelial Cells <1 /hpf Urine Hyaline Casts 2 /lpf Microscopic Urinalysis Comment CATH-CULT NOT IND Objective Remarks GENERAL: no acute distress. SKIN: Warm and dry. HEAD: Normocephalic. EYES: No scleral icterus. No injection or drainage. NECK: Supple, trachea midline. No JVD or lymphadenopathy. T piece in place, no redness over trach insertion site. CARDIOVASCULAR: Regular rate and rhythm without murmurs, gallops, or rubs. RESPIRATORY: Clear to auscultation BL. NO rhonchi or rales auscultated. GASTROINTESTINAL: Abdomen soft, non-tender, nondistended. PEG tube in place. MUSCULOSKELETAL: No cyanosis, or edema. Medications and IVs Current Medications Medications (Trade) Dose Ordered Sig/Zeferino Route Start Time Stop Time Status Last Admin (Narcan Inj) 0.4 mg UNSCH PRN IV 04/20/17 17:15 (Aspirin) 325 mg DAILY DOBHOFF 04/27/17 09:00 12/07/17 09:59 (Prevacid Odt) 30 mg DAILY NG 05/08/17 09:00 12/07/17 09:59 (Tears Naturale Opth Soln) 1 drop Q8HR EACH EYE 06/12/17 07:15 12/07/17 06:12 (Nitroglycerin 2% Oint) 2 inch Q6H PRN TOPICAL 06/21/17 08:00 06/30/17 14:37 (Heparin Inj) 5,000 units Q8HR SQ 07/15/17 08:00 12/07/17 06:11 (Pill Splitter) 1 ea UNSCH PRN OTHER 09/05/17 11:00 (Apresoline) 10 mg Q8HR PEG 09/24/17 14:00 12/07/17 06:12 (Norvasc) 10 mg DAILY PEG 10/04/17 09:00 12/07/17 09:59 (Oscal-D 250-125) 250 mg TID PEG 10/03/17 13:00 12/07/17 09:58 (Vitamin D3) 5,000 units DAILY PEG 10/04/17 09:00 12/07/17 09:58 (Catapres) 0.1 mg Q6H PRN PEG 10/03/17 12:30 11/27/17 00:23 (Lactinex) 1 tab Q12HR PEG 10/03/17 21:00 12/07/17 09:58 (Miralax) 17 gm DAILY PRN PEG 10/03/17 12:00 (Beneprotein Powder) 1 pack TID PRN G-TUBE 10/03/17 12:00 (Albuterol Neb) 2.5 mg Q2HR NEB PRN NEB 10/03/17 21:45 10/19/17 22:09 (Tylenol 650 Mg/ 20 ml Liq) 650 mg Q6H PRN PEG 10/26/17 06:45 (Roxicodone Intensol Liq) 5 mg Q6H PRN PO 10/29/17 11:00 12/06/17 22:22 (D50w (Vial) Inj) 50 ml UNSCH PRN IV PUSH 11/04/17 12:30 (Glucagon Inj) 1 mg UNSCH PRN OTHER 11/04/17 12:30 (NovoLIN R SUPPLEMENTAL SCALE) 1 Q6H SQ 11/04/17 12:30 12/07/17 06:11 (Reglan Liq) 10 mg Q8HR PO 11/07/17 14:30 Future Hold 11/18/17 14:08 (Questran Light Pkt) 4 gm BID PRN PEG 11/12/17 13:30 11/25/17 09:59 (Prinivil) 5 mg DAILY PEG 11/23/17 09:00 12/07/17 09:59 (Lomotil 2.5-0.025 Mg Liq) 5 ml Q6H PRN PO 11/25/17 13:15 12/03/17 15:01 (Levemir Inj) 12 units Q12H SQ 12/03/17 00:00 12/07/17 00:13 (Lasix) 40 mg DAILY PO 12/04/17 09:00 12/07/17 09:59 (Betadine 10% Top Soln) 1 applic Q12HR EXTERNAL 12/06/17 10:00 12/07/17 09:59 A/P Assessment and Plan (1) Acute ischemic left middle cerebral artery (MCA) stroke ICD Code: I63.512 - Cerebral infarction due to unspecified occlusion or stenosis of left middle cerebral artery Status: Acute (2) Acute respiratory failure ICD Code: J96.00 - Acute respiratory failure, unspecified whether with hypoxia or hypercapnia (3) Right hemiplegia ICD Code: G81.91 - Hemiplegia, unspecified affecting right dominant side Status: Acute (4) Sacral decubitus ulcer ICD Code: L89.159 - Pressure ulcer of sacral region, unspecified stage Status: Chronic (5) HCAP (healthcare-associated pneumonia) ICD Code: J18.9 - Pneumonia, unspecified organism Status: Resolved (6) 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 She underwent ORIF on 04/21/17 and on 04/24 a stroke alert was called as she was found to have right hemiparesis with left gaze. She has a poor prognosis based on her lack of overall recovery over the last 6+ months. Patient has no acute issues, no change in care plan. Pulmonary edema -resolved chest x-ray done 11/13/2017, evidence of pulmonary edema, continue Lasix, monitor BMP every few weeks. 12/03 Chest x-ray on shows bilateral hazy airspace disease overall improved from November 13. Cardiomegaly. Increased furosemide 40 mg p.o. daily. Urinary retention No leukocytosis U/A with large leuk esterase but many squamous cells Culture grew Aerococcus, finished Augmentin November 07 - November 14. Leavitt replaced Elevated D-dimer Ordered 10/31 due to increased FiO2 demand. Since D-dimer elevated, CTA chest obtained to r/o PE which was negative Likely elevated in light of chronic illness RUE U/S negative for DVT - elevate R arm Left MCA stroke 5.5 mm of [id number] subfalcine herniation, diagnosed 04/24. Was not a candidate for thrombolysis at that time. Increasing edema seen on repeat CT 04/28 with a reduction in midline shift on another repeat on 04/30 Neurologic condition remained poor and she underwent trach 05/15/17 and PEG Persistent right-sided hemiparesis. Previously seen by neurology, signed off Previously seen by neurosurgery, signed off Continue daily ASA Hypertension / CHF Controlled Continue Amlodipine, Doxazosin, Hydralazine, Clonidine, Diuretics. Echo 10/06/17 LVSF EF = 25-30%. On furosemide 20 mg daily Chronic Tracheostomy /Chronic respiratory failure 10/22/2017 Pulmonary toilet, trach care Duo nebs as needed Pulm following, continue Oxygen to keep oxygen saturation over 92%, Bronchodilator. Large left pneumothorax Resolved Chest tube placed 05/07, discontinued 05/12/17 Hepatitis C LFTs normalized Negative genotype/viral load Diabetes mellitus SSI Novolin R High-dose scale Levemir insulin 8u Q12 FEN PEG tube feeding with Glucerna 1.5 goal 45 cc/hr, per nutrition recommendations Loose Stools patient has been checked for Cdiff on multiple occasions, most recently 11/04 Cdiff negative already on lactinex bid Continue Questran, start Lomotil. Anal Fissure continue wound care Bradycardia Upon review of records the patient was recently evaluated by radiology due to bradycardia on 11/19/17. At the time cardiology recommended observation and avoidance of AV du blocking agents. Patient currently on telemetry with an episode of bradycardia in the 30s which was asymptomatic as per RN. EKG obtained on 12/02 shows sinus rhythm with moderate T-wave abnormalities on anterolateral leads. Reviewed by me. Fever Temp of 100.0. Check urinalysis and CXR. Last CXR on 11/13 showed cardiomegaly with worsening pulmonary edema pattern and a probable trace left pleural effusion. 12/03 no further fevers reported. Chest x-ray reviewed by me shows bilateral hazy airspace disease overall improved from November 13. Cardiomegaly. Urinalysis is suggestive of urinary tract infection. 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 I will not start IV antibiotics unless there is fever. Urine culture is growing gram-negative rods. No changes to anterior assessment. Discussed with nurse miss Chadwick DVT prophylaxis Heparin Discharge Planning Very poor prognosis. Appreciate palliative care efforts. Calvin Gerardo MD Dec 07, 2017 11:43
--- NOTE | 2017-12-07 19:07 | HHI.PR ---
Subjective Remarks No events overnight. Patient is on TP's with 40% FIO2. . Tolerating tube feeds. Tolerates TF No fever No new complaint Calm, sleeping Objective Vital Signs Vital Signs Date Time Temp Pulse Resp B/P (MAP) Pulse Ox O2 Delivery O2 Flow Rate FiO2 12/07/17 16:20 98.4 75 18 130/69 (89) 98 12/07/17 15:00 75 12/07/17 12:55 98.6 78 18 125/65 (85) 97 12/07/17 08:55 100.1 69 18 136/65 (88) 97 12/07/17 08:29 97 T-piece 5.00 28 12/07/17 07:20 96 T-Piece 5.00 28 12/07/17 07:20 80 12/07/17 04:00 98 T-Piece 5.00 28 12/07/17 04:00 97.5 82 16 135/67 (89) 98 12/06/17 20:00 96 T-piece 28 12/06/17 20:00 83 12/06/17 20:00 98 T-Piece 6.00 28 12/06/17 20:00 97.0 81 16 153/75 (101) 98 I/O 12/06/17 12/06/17 12/06/17 12/07/17 12/07/17 12/07/17 07:00 15:00 23:00 07:00 15:00 23:00 Intake Total 2351 ml 950 ml 1160 ml 971 ml Output Total 350 ml 900 ml 400 ml 500 ml Balance 2001 ml 50 ml 760 ml 471 ml IV Total 10 ml 0 ml Tube Feeding 1141 ml 450 ml 540 ml 491 ml Tube Irrigant 1200 ml 120 ml Other 500 ml 500 ml 480 ml Output Urine Total 350 ml 900 ml 400 ml 500 ml # Bowel Movements 2 1 1 Objective Remarks GENERAL: Elderly female,NAD SKIN: Warm and dry. HEAD: Normocephalic. EYES: No scleral icterus. No injection or drainage. NECK: Supple, trachea midline. No JVD or lymphadenopathy. + trach CARDIOVASCULAR: Regular rate and rhythm without murmurs, gallops, or rubs. RESPIRATORY: Breath sounds equal bilaterally. No accessory muscle use. GASTROINTESTINAL: Abdomen soft, non-tender, nondistended. MUSCULOSKELETAL: No cyanosis, or edema. BACK: Nontender without obvious deformity. No CVA tenderness. A/P Assessment and Plan Chronic resp failure, ,S/P Trach CVA Pneumonia Calcified Granuloma LLL Pseudomonas Tracheobronchitis, PLAN: Continue with TP's, keep sats >92% Bronchodilators, Pulm toilet, trach care CT chest 11/01: No PE,adenopathy in the right paratracheal, subcarinal and hilar regions with numerous prominent lymph nodes seen. Cont TF- GI/DVT prophylaxis Continue treatment plan. Down size Trach#[email or web address] Chris Rizo MD Dec 07, 2017 19:07
[2017-12-08] VITALS (12 sets, daily range): BP systolic 119–150; BP diastolic 68–84; PULSE 67–97; RESP 16–21; TEMP 97.7–98.6; O2SAT 97–99
[2017-12-08] MEDS: INSULIN NovoLIN REGULAR SUPPLEMENTAL SCALE SQ SCH ×4 (00:10→18:30)
[2017-12-08] MEDS: INSULIN DETEMIR 100 UNITS/ML VIAL SQ SCH ×2 (00:10→12:00)
[2017-12-08] MEDS: ARTIFICIAL TEARS OPTH SOLN 15 ML BTL EACH EYE SCH ×3 (05:53→21:08)
[2017-12-08] MEDS: hydrALAZINE HCL 10 MG TAB PEG SCH ×3 (05:53→21:07)
[2017-12-08] MEDS: HEPARIN SODIUM - SQ 10,000 UNITS/ML VIAL SQ SCH ×3 (05:53→21:07)
[2017-12-08] MEDS: LACTOBACILLUS ACIDOPHILUS TAB PEG SCH ×2 (08:10→21:07)
[2017-12-08] MEDS: CALCIUM/VITAMIN D 250 MG/125 U TAB PEG SCH ×3 (08:10→17:40)
[2017-12-08] MEDS: CHOLECALCIFEROL (VIT D3) 5000 UNIT CAP PEG SCH (08:10)
[2017-12-08] MEDS: LANSOPRAZOLE SOLUTAB 30 MG TAB NG SCH (08:10)
[2017-12-08] MEDS: LISINOPRIL 5 MG TAB PEG SCH (08:10)
[2017-12-08] MEDS: ASPIRIN 325 MG TAB DOBHOFF SCH (08:10)
[2017-12-08] MEDS: FUROSEMIDE 40 MG TAB PO SCH (08:10)
[2017-12-08] MEDS: POVIDONE IODINE 10% SOLN 480 ML BTL EXTERNAL SCH ×2 (08:11→21:08)
[2017-12-08] MEDS: DEXTROSE 50% IN WATER 50 ML VIAL(D50) IV PUSH PRN (12:27)
--- NOTE | 2017-12-08 14:13 | HHI.PR ---
Subjective Remarks Patient seen and examined Decreased urine output overnight, currently afebrile case discussed with RN Objective Vitals Vital Signs Date Time Temp Pulse Resp B/P (MAP) Pulse Ox O2 Delivery O2 Flow Rate FiO2 12/08/17 12:00 98.4 74 18 140/71 (94) 99 12/08/17 09:28 68 12/08/17 08:00 T-Piece 28 12/08/17 08:00 97.7 67 18 119/68 (85) 97 12/08/17 07:51 97 T-piece 5.00 28 12/08/17 04:57 98.6 97 18 150/84 (106) 97 12/08/17 04:00 97 12/08/17 00:00 96 12/08/17 00:00 98.6 96 16 147/81 (103) 97 12/07/17 22:18 98 T-Piece 5.00 28 12/07/17 21:12 98 Trach Collar 6.00 12/07/17 20:00 98.4 94 16 136/73 (94) 98 12/07/17 20:00 94 12/07/17 16:20 98.4 75 18 130/69 (89) 98 12/07/17 15:00 75 I/O 12/07/17 12/07/17 12/07/17 12/08/17 12/08/17 12/08/17 07:00 15:00 23:00 07:00 15:00 23:00 Intake Total 1160 ml 971 ml Output Total 400 ml 500 ml 200 ml Balance 760 ml 471 ml -200 ml Tube Feeding 540 ml 491 ml Tube Irrigant 120 ml Other 500 ml 480 ml Output Urine Total 400 ml 500 ml 200 ml # Bowel Movements 1 1 2 Imaging Last Impressions Chest X-Ray 12/02/17 0000 Signed Impressions: Service Date/Time: Saturday, December 02, 2017 19:12 - CONCLUSION: 1. Bilateral hazy air space disease overall improved from November 13. Cardiomegaly. Tracheostomy present. Jaime Velasquez MD Upper Extremity Ultrasound 11/04/17 0000 Signed Impressions: Service Date/Time: Saturday, November 04, 2017 09:57 - CONCLUSION: No thrombus observed. Subcutaneous edema noted. Deangelo Wren Jr., MD Abdomen X-Ray 11/04/17 0000 Signed Impressions: Service Date/Time: Saturday, November 04, 2017 11:58 - CONCLUSION: Gaseous distention of bowel loops could be ileus but unchanged. Benja Ramsey MD CT Angiography 11/01/17 0000 Signed Impressions: Service Date/Time: Wednesday, November 01, 2017 16:47 - CONCLUSION: No evidence for pulmonary embolism. Please see above. Choco Mustafa MD Thoracentesis 08/05/17 1535 Signed Impressions: Service Date/Time: Saturday, August 05, 2017 16:08 - CONCLUSION: Uncomplicated CT-guided thoracentesis. Sage Adler MD Chest Ultrasound 08/02/17 0000 Signed Impressions: Service Date/Time: Tuesday, August 01, 2017 22:06 - CONCLUSION: 1. Moderate right pleural effusion, as above. Alejo De La Vega MD Hip and Pelvis X-Ray 07/09/17 0000 Signed Impressions: Service Date/Time: Sunday, July 09, 2017 14:04 - CONCLUSION: Anatomic alignment. Ricardo Middleton MD FACR Liver Ultrasound 06/19/17 0000 Signed Impressions: Service Date/Time: June 13:20 - CONCLUSION: 1. Mildly increased echotexture of the liver characteristic of hepatic steatosis. 2. Gallbladder sludge. Obdulio Sam MD Head CT 05/15/17 0000 Signed Impressions: Service Date/Time: May 19:59 - CONCLUSION: 1. 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 2. No bleed or new/acute infarct. Obdulio Simms MD Gall Bladder Ultrasound 05/08/17 0000 Signed Impressions: Service Date/Time: May 08:23 - CONCLUSION: Focally unremarkable appearance of the gallbladder Obdulio Chun MD Abdomen/Pelvis CT 05/07/17 0000 Signed Impressions: Service Date/Time: Sunday, May 07, 2017 13:23 - CONCLUSION: 1. Large left pneumothorax. 2. Bilateral lower lobe consolidation and bilateral moderate size pleural effusions. 3. Significant soft tissue thickening of the right lateral chest wall and left gluteus muscle. 4. Mild ascites. The findings were called to Dr. Carney. Deangelo Zamora MD Chest CT 04/30/17 0000 Signed Impressions: Service Date/Time: Sunday, April 30, 2017 09:20 - CONCLUSION: 1. Bilateral pulmonary infiltrates more pronounced within the lower lobes with tiny bilateral pleural effusions. Material seen filling the lower lobe bronchi bilaterally either related to purulent material or perhaps mucus plugging. Deangelo Wren Jr., MD Carotid Artery Ultrasound 04/24/17 0000 Signed Impressions: Service Date/Time: April 09:45 - CONCLUSION: 1. No hemodynamically significant carotid artery stenosis. Arnie Middleton MD Hip X-Ray 04/21/17 0000 Signed Impressions: Service Date/Time: Friday, April 21, 2017 11:36 - CONCLUSION: Fluoroscopic images during placement of intramedullary siomara left femur. Benja Ramsey MD Objective Remarks GENERAL: NAD SKIN: Warm and dry. HEAD: Normocephalic. EYES: No scleral icterus. No injection or drainage. NECK: Supple, trachea midline. No JVD or lymphadenopathy. CARDIOVASCULAR: Regular rate and rhythm without murmurs, gallops, or rubs. RESPIRATORY: Breath sounds equal bilaterally. No accessory muscle use. GASTROINTESTINAL: Abdomen soft, non-tender, nondistended. MUSCULOSKELETAL: No cyanosis, or edema. BACK: Nontender without obvious deformity. No CVA tenderness. Procedures PEG tube trach 05/15/17 and PEG 05/16/17 A/P Problem List: (1) Acute ischemic left middle cerebral artery (MCA) stroke ICD Code: I63.512 - Cerebral infarction due to unspecified occlusion or stenosis of left middle cerebral artery Status: Acute (2) Acute respiratory failure ICD Code: J96.00 - Acute respiratory failure, unspecified whether with hypoxia or hypercapnia (3) Right hemiplegia ICD Code: G81.91 - Hemiplegia, unspecified affecting right dominant side Status: Acute (4) Sacral decubitus ulcer ICD Code: L89.159 - Pressure ulcer of sacral region, unspecified stage Status: Chronic (5) HCAP (healthcare-associated pneumonia) ICD Code: J18.9 - Pneumonia, unspecified organism Status: Resolved (6) 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 daily. Urinary retention No leukocytosis Culture grew Aerococcus, finished Augmentin November 07 - November 14. Leavitt replaced Elevated D-dimer Ordered 10/31 due to increased FiO2 demand. Since D-dimer elevated, CTA chest obtained to r/o PE which was negative Likely elevated in light of chronic illness RUE U/S negative for DVT - Left MCA stroke 5.5 mm of [id number] subfalcine herniation, diagnosed 04/24. Was not a candidate for thrombolysis at that time. Increasing edema seen on repeat CT 04/28 with a reduction in midline shift on another repeat on 04/30 Neurologic condition remained poor and she underwent trach 05/15/17 and PEG Persistent right-sided hemiparesis. Previously seen by neurology, signed off Previously seen by neurosurgery, signed off Continue daily ASA Hypertension / CHF Controlled Continue Amlodipine, Doxazosin, Hydralazine, Clonidine, Diuretics. Echo 10/06/17 LVSF EF = 25-30%. On furosemide 20 mg daily Chronic Tracheostomy /Chronic respiratory failure 10/22/2017 Pulmonary toilet, trach care Duo nebs as needed Pulm following, continue Oxygen to keep oxygen saturation over 92%, Bronchodilator. Large left pneumothorax Resolved Chest tube placed 05/07, discontinued 05/12/17 Hepatitis C LFTs normalized Negative genotype/viral load Diabetes mellitus SSI Novolin R High-dose scale Levemir insulin 8u Q12 FEN PEG tube feeding with Glucerna 1.5 goal 45 cc/hr, per nutrition recommendations Loose Stools C-diff PCR negative Continue Questran, start Lomotil. Anal Fissure continue wound care Fever-Resolved DVT prophylaxis Heparin Problem Qualifiers (1) Acute respiratory failure: Qualified Codes: J96.00 - Acute respiratory failure, unspecified whether with hypoxia or hypercapnia (2) Sacral decubitus ulcer: Qualified Codes: L89.152 - Pressure ulcer of sacral region, stage 2 (3) Chronic respiratory failure: Qualified Codes: J96.11 - Chronic respiratory failure with hypoxia Pontey,Benja MD Dec 08, 2017 14:13
--- NOTE | 2017-12-08 16:54 | HHI.PR ---
Subjective Remarks No events overnight. Patient is on TP's with 40% FIO2. . Tolerating tube feeds. Tolerates TF No fever No new complaint Calm, sleeping Vomited once trach not changed Objective Vital Signs Vital Signs Date Time Temp Pulse Resp B/P (MAP) Pulse Ox O2 Delivery O2 Flow Rate FiO2 12/08/17 15:00 81 12/08/17 12:00 98.4 74 18 140/71 (94) 99 12/08/17 09:28 68 12/08/17 08:00 T-Piece 28 12/08/17 08:00 97.7 67 18 119/68 (85) 97 12/08/17 07:51 97 T-piece 5.00 28 12/08/17 04:57 98.6 97 18 150/84 (106) 97 12/08/17 04:00 97 12/08/17 00:00 96 12/08/17 00:00 98.6 96 16 147/81 (103) 97 12/07/17 22:18 98 T-Piece 5.00 28 12/07/17 21:12 98 Trach Collar 6.00 12/07/17 20:00 98.4 94 16 136/73 (94) 98 12/07/17 20:00 94 I/O 12/07/17 12/07/17 12/07/17 12/08/17 12/08/17 12/08/17 07:00 15:00 23:00 07:00 15:00 23:00 Intake Total 1160 ml 971 ml Output Total 400 ml 500 ml 200 ml Balance 760 ml 471 ml -200 ml Tube Feeding 540 ml 491 ml Tube Irrigant 120 ml Other 500 ml 480 ml Output Urine Total 400 ml 500 ml 200 ml # Bowel Movements 1 1 2 Objective Remarks GENERAL: Elderly female,NAD SKIN: Warm and dry. HEAD: Normocephalic. EYES: No scleral icterus. No injection or drainage. NECK: Supple, trachea midline. No JVD or lymphadenopathy. + trach CARDIOVASCULAR: Regular rate and rhythm without murmurs, gallops, or rubs. RESPIRATORY: Breath sounds equal bilaterally. No accessory muscle use. GASTROINTESTINAL: Abdomen soft, non-tender, nondistended. MUSCULOSKELETAL: No cyanosis, or edema. BACK: Nontender without obvious deformity. No CVA tenderness. A/P Assessment and Plan Chronic resp failure, ,S/P Trach CVA Pneumonia Calcified Granuloma LLL Pseudomonas Tracheobronchitis, PLAN: Continue with TP's, keep sats >92% Bronchodilators, Pulm toilet, trach care CT chest 11/01: No PE,adenopathy in the right paratracheal, subcarinal and hilar regions with numerous prominent lymph nodes seen. Cont TF- GI/DVT prophylaxis Continue treatment plan. Chris Rizo MD Dec 08, 2017 16:53
[2017-12-09] VITALS (12 sets, daily range): BP systolic 108–148; BP diastolic 58–77; PULSE 66–89; RESP 16–20; TEMP 97.5–98.6; O2SAT 95–99
[2017-12-09] MEDS: INSULIN NovoLIN REGULAR SUPPLEMENTAL SCALE SQ SCH ×4 (00:30→17:38)
[2017-12-09] MEDS: HEPARIN SODIUM - SQ 10,000 UNITS/ML VIAL SQ SCH ×3 (05:54→20:34)
[2017-12-09] MEDS: hydrALAZINE HCL 10 MG TAB PEG SCH ×3 (05:55→20:32)
[2017-12-09] MEDS: ARTIFICIAL TEARS OPTH SOLN 15 ML BTL EACH EYE SCH ×3 (05:55→20:35)
[2017-12-09] MEDS: FUROSEMIDE 40 MG TAB PO SCH (09:33)
[2017-12-09] MEDS: ASPIRIN 325 MG TAB DOBHOFF SCH (09:33)
[2017-12-09] MEDS: CALCIUM/VITAMIN D 250 MG/125 U TAB PEG SCH ×3 (09:34→17:38)
[2017-12-09] MEDS: LACTOBACILLUS ACIDOPHILUS TAB PEG SCH ×2 (09:34→20:32)
[2017-12-09] MEDS: POVIDONE IODINE 10% SOLN 480 ML BTL EXTERNAL SCH ×2 (09:34→20:35)
[2017-12-09] MEDS: CHOLECALCIFEROL (VIT D3) 5000 UNIT CAP PEG SCH (09:34)
[2017-12-09] MEDS: LISINOPRIL 5 MG TAB PEG SCH (09:34)
[2017-12-09] MEDS: LANSOPRAZOLE SOLUTAB 30 MG TAB NG SCH (09:34)
--- NOTE | 2017-12-09 11:45 | HHI.PR ---
Subjective Remarks Patient seen and examined Positive for bowel movement overnight Good Urine output Objective Vitals Vital Signs Date Time Temp Pulse Resp B/P (MAP) Pulse Ox O2 Delivery O2 Flow Rate FiO2 12/09/17 08:00 97.9 72 16 144/70 (94) 95 12/09/17 07:32 97 Trach Collar 5.00 28 12/09/17 07:00 95 Trach Collar 5.00 28 12/09/17 07:00 73 12/09/17 04:49 98.2 84 18 141/71 (94) 99 12/09/17 02:39 82 12/09/17 00:13 97.6 89 18 148/77 (100) 99 12/08/17 20:50 97 Trach Collar 28 12/08/17 20:35 98.1 84 21 126/81 (96) 99 12/08/17 20:22 79 12/08/17 20:13 98 T-Piece 5.00 28 12/08/17 18:56 98.4 71 18 128/75 (92) 99 12/08/17 15:00 81 12/08/17 12:00 98.4 74 18 140/71 (94) 99 I/O 12/08/17 12/08/17 12/08/17 12/09/17 12/09/17 12/09/17 07:00 15:00 23:00 07:00 15:00 23:00 Intake Total 200 ml 390 ml Output Total 200 ml Balance -200 ml 200 ml 390 ml IV Total 10 ml Tube Feeding 120 ml Other 200 ml 260 ml Output Urine Total 200 ml # Voids 3 4 # Bowel Movements 2 1 1 Objective Remarks GENERAL: NAD SKIN: Warm and dry. HEAD: Normocephalic. EYES: No scleral icterus. No injection or drainage. NECK: Supple, trachea midline. No JVD or lymphadenopathy. CARDIOVASCULAR: Regular rate and rhythm without murmurs, gallops, or rubs. RESPIRATORY: Breath sounds equal bilaterally. No accessory muscle use. GASTROINTESTINAL: Abdomen soft, non-tender, nondistended. MUSCULOSKELETAL: No cyanosis, or edema. BACK: Nontender without obvious deformity. No CVA tenderness. Procedures PEG tube trach 05/15/17 and PEG 05/16/17 A/P Problem List: (1) Acute ischemic left middle cerebral artery (MCA) stroke ICD Code: I63.512 - Cerebral infarction due to unspecified occlusion or stenosis of left middle cerebral artery Status: Acute (2) Acute respiratory failure ICD Code: J96.00 - Acute respiratory failure, unspecified whether with hypoxia or hypercapnia (3) Right hemiplegia ICD Code: G81.91 - Hemiplegia, unspecified affecting right dominant side Status: Acute (4) Sacral decubitus ulcer ICD Code: L89.159 - Pressure ulcer of sacral region, unspecified stage Status: Chronic (5) HCAP (healthcare-associated pneumonia) ICD Code: J18.9 - Pneumonia, unspecified organism Status: Resolved (6) 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 daily. Urinary retention No leukocytosis Culture grew Aerococcus, finished Augmentin November 07 - November 14. Leavitt replaced Elevated D-dimer Ordered 10/31 due to increased FiO2 demand. Since D-dimer elevated, CTA chest obtained to r/o PE which was negative Likely elevated in light of chronic illness RUE U/S negative for DVT - Left MCA stroke 5.5 mm of [id number]-ywvrc subfalcine herniation, diagnosed 04/24. Was not a candidate for thrombolysis at that time. Increasing edema seen on repeat CT 04/28 with a reduction in midline shift on another repeat on 04/30 Neurologic condition remained poor and she underwent trach 05/15/17 and PEG Persistent right-sided hemiparesis. Previously seen by neurology, signed off Previously seen by neurosurgery, signed off Continue daily ASA Hypertension / CHF Controlled Continue Amlodipine, Doxazosin, Hydralazine, Clonidine, Diuretics. Echo 10/06/17 LVSF EF = 25-30%. On furosemide 20 mg daily Chronic Tracheostomy /Chronic respiratory failure 10/22/2017 Pulmonary toilet, trach care Duo nebs as needed Pulm following, continue Oxygen to keep oxygen saturation over 92%, Bronchodilator. Large left pneumothorax Resolved Chest tube placed 05/07, discontinued 05/12/17 Hepatitis C LFTs normalized Negative genotype/viral load Diabetes mellitus SSI Novolin R High-dose scale Levemir insulin 8u Q12 FEN PEG tube feeding with Glucerna 1.5 and resume @ 35 cc and eventually increase to 45 cc/hr Loose Stools C-diff PCR negative Continue Questran, Lomotil. Anal Fissure continue wound care Fever-Resolved DVT prophylaxis Heparin Problem Qualifiers (1) Acute respiratory failure: Qualified Codes: J96.00 - Acute respiratory failure, unspecified whether with hypoxia or hypercapnia (2) Sacral decubitus ulcer: Qualified Codes: L89.152 - Pressure ulcer of sacral region, stage 2 (3) Chronic respiratory failure: Qualified Codes: J96.11 - Chronic respiratory failure with hypoxia Benja Rey MD Dec 09, 2017 11:45
[2017-12-09] MEDS: INSULIN DETEMIR 100 UNITS/ML VIAL SQ SCH ×2 (12:27)
[2017-12-09] MEDS: oxyCODONE HCL ORAL CONC 5 MG/0.25 ML SYRINGE PO PRN (15:59)
[2017-12-09] MEDS: ONDANSETRON HCL 4 MG/2 ML VIAL IV PUSH PRN (15:59)
--- NOTE | 2017-12-09 20:17 | HHI.PR ---
Subjective Remarks No events overnight. Patient is on TP's with 40% FIO2. . Tolerating tube feeds. Tolerates TF No fever No new complaint Calm, sleeping Trach down sized #6 Objective Vital Signs Vital Signs Date Time Temp Pulse Resp B/P (MAP) Pulse Ox O2 Delivery O2 Flow Rate FiO2 12/09/17 16:00 98.6 71 20 119/58 (78) 97 12/09/17 15:00 85 12/09/17 12:00 98.4 85 18 108/60 (76) 98 12/09/17 08:00 97.9 72 16 144/70 (94) 95 12/09/17 07:32 97 Trach Collar 5.00 28 12/09/17 07:00 95 Trach Collar 5.00 28 12/09/17 07:00 73 12/09/17 04:49 98.2 84 18 141/71 (94) 99 12/09/17 02:39 82 12/09/17 00:13 97.6 89 18 148/77 (100) 99 12/08/17 20:50 97 Trach Collar 28 12/08/17 20:35 98.1 84 21 126/81 (96) 99 12/08/17 20:22 79 I/O 12/08/17 12/08/17 12/08/17 12/09/17 12/09/17 12/09/17 07:00 15:00 23:00 07:00 15:00 23:00 Intake Total 200 ml 390 ml 462 ml Output Total 200 ml Balance -200 ml 200 ml 390 ml 462 ml IV Total 10 ml Tube Feeding 120 ml 382 ml Other 200 ml 260 ml 80 ml Output Urine Total 200 ml # Voids 3 4 3 # Bowel Movements 2 1 1 1 Objective Remarks GENERAL: Elderly female,NAD SKIN: Warm and dry. HEAD: Normocephalic. EYES: No scleral icterus. No injection or drainage. NECK: Supple, trachea midline. No JVD or lymphadenopathy. + trach CARDIOVASCULAR: Regular rate and rhythm without murmurs, gallops, or rubs. RESPIRATORY: Breath sounds equal bilaterally. No accessory muscle use. GASTROINTESTINAL: Abdomen soft, non-tender, nondistended. MUSCULOSKELETAL: No cyanosis, or edema. BACK: Nontender without obvious deformity. No CVA tenderness. A/P Assessment and Plan Chronic resp failure, ,S/P Trach CVA Pneumonia Calcified Granuloma LLL Pseudomonas Tracheobronchitis, PLAN: Continue with TP's, keep sats >92% Bronchodilators, Pulm toilet, trach care CT chest 11/01: No PE,adenopathy in the right paratracheal, subcarinal and hilar regions with numerous prominent lymph nodes seen. Cont TF- GI/DVT prophylaxis Continue treatment plan. Chris Rizo MD Dec 09, 2017 20:17
[2017-12-10] VITALS (10 sets, daily range): BP systolic 95–147; BP diastolic 50–67; PULSE 54–72; RESP 20–22; TEMP 96.9–98.6; O2SAT 95–100
[2017-12-10] MEDS: INSULIN NovoLIN REGULAR SUPPLEMENTAL SCALE SQ SCH ×4 (00:30→17:55)
[2017-12-10] MEDS: INSULIN DETEMIR 100 UNITS/ML VIAL SQ SCH ×2 (00:59→12:00)
[2017-12-10] MEDS: DIPHENOXYLATE/ATROPINE 2.5 MG/0.025 MG/5 ML CUP PO PRN (03:06)
[2017-12-10] MEDS: HEPARIN SODIUM - SQ 10,000 UNITS/ML VIAL SQ SCH ×3 (05:53→20:38)
[2017-12-10] MEDS: hydrALAZINE HCL 10 MG TAB PEG SCH ×3 (05:53→20:38)
[2017-12-10] MEDS: ARTIFICIAL TEARS OPTH SOLN 15 ML BTL EACH EYE SCH ×3 (05:53→20:39)
[2017-12-10] MEDS: POVIDONE IODINE 10% SOLN 480 ML BTL EXTERNAL SCH ×2 (09:00→20:49)
[2017-12-10] MEDS: LANSOPRAZOLE SOLUTAB 30 MG TAB NG SCH (09:04)
[2017-12-10] MEDS: CHOLECALCIFEROL (VIT D3) 5000 UNIT CAP PEG SCH (09:04)
[2017-12-10] MEDS: CALCIUM/VITAMIN D 250 MG/125 U TAB PEG SCH ×3 (09:04→18:08)
[2017-12-10] MEDS: LISINOPRIL 5 MG TAB PEG SCH (09:04)
[2017-12-10] MEDS: FUROSEMIDE 40 MG TAB PO SCH (09:04)
[2017-12-10] MEDS: LACTOBACILLUS ACIDOPHILUS TAB PEG SCH ×2 (09:05→20:38)
[2017-12-10] MEDS: ASPIRIN 325 MG TAB DOBHOFF SCH (09:05)
--- NOTE | 2017-12-10 10:02 | HHI.PR ---
Subjective Remarks patient seen and examined stable and no change Vitals stable and tolerating Tube Feed Objective Vitals Vital Signs Date Time Temp Pulse Resp B/P (MAP) Pulse Ox O2 Delivery O2 Flow Rate FiO2 12/10/17 08:45 98 Trach Collar 5.00 28 12/10/17 04:00 98.6 67 20 131/63 (85) 100 12/10/17 00:00 98.1 71 20 117/60 (79) 96 12/09/17 23:00 71 12/09/17 20:18 99 Trach Collar 28 12/09/17 20:00 Trach Collar 5.00 28 12/09/17 20:00 97.5 66 20 127/69 (88) 99 12/09/17 20:00 66 12/09/17 16:00 98.6 71 20 119/58 (78) 97 12/09/17 15:00 85 12/09/17 12:00 98.4 85 18 108/60 (76) 98 I/O 12/09/17 12/09/17 12/09/17 12/10/17 12/10/17 12/10/17 06:59 14:59 22:59 06:59 14:59 22:59 Intake Total 390 ml 462 ml 479 ml Balance 390 ml 462 ml 479 ml IV Total 10 ml Tube Feeding 120 ml 382 ml 389 ml Other 260 ml 80 ml 90 ml # Voids 4 3 2 # Bowel Movements 1 1 2 Objective Remarks GENERAL: NAD SKIN: Warm and dry. HEAD: Normocephalic. EYES: No scleral icterus. No injection or drainage. NECK: Supple, trachea midline. No JVD or lymphadenopathy. CARDIOVASCULAR: Regular rate and rhythm without murmurs, gallops, or rubs. RESPIRATORY: Breath sounds equal bilaterally. No accessory muscle use. GASTROINTESTINAL: Abdomen soft, non-tender, nondistended. MUSCULOSKELETAL: No cyanosis, or edema. BACK: Nontender without obvious deformity. No CVA tenderness. Procedures PEG tube trach 05/15/17 and PEG 05/16/17 A/P Problem List: (1) Acute ischemic left middle cerebral artery (MCA) stroke ICD Code: I63.512 - Cerebral infarction due to unspecified occlusion or stenosis of left middle cerebral artery Status: Acute (2) Acute respiratory failure ICD Code: J96.00 - Acute respiratory failure, unspecified whether with hypoxia or hypercapnia (3) Right hemiplegia ICD Code: G81.91 - Hemiplegia, unspecified affecting right dominant side Status: Acute (4) Sacral decubitus ulcer ICD Code: L89.159 - Pressure ulcer of sacral region, unspecified stage Status: Chronic (5) HCAP (healthcare-associated pneumonia) ICD Code: J18.9 - Pneumonia, unspecified organism Status: Resolved (6) 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 daily. Urinary retention No leukocytosis Culture grew Aerococcus, finished Augmentin November 07 - November 14. Leavitt replaced Elevated D-dimer Ordered 10/31 due to increased FiO2 demand. Since D-dimer elevated, CTA chest obtained to r/o PE which was negative Likely elevated in light of chronic illness RUE U/S negative for DVT - Left MCA stroke 5.5 mm of [id number] subfalcine herniation, diagnosed 04/24. Was not a candidate for thrombolysis at that time. Increasing edema seen on repeat CT 04/28 with a reduction in midline shift on another repeat on 04/30 Neurologic condition remained poor and she underwent trach 05/15/17 and PEG Persistent right-sided hemiparesis. Previously seen by neurology, signed off Previously seen by neurosurgery, signed off Continue daily ASA Hypertension / CHF Controlled Continue Amlodipine, Doxazosin, Hydralazine, Clonidine, Diuretics. Echo 10/06/17 LVSF EF = 25-30%. On furosemide 20 mg daily Chronic Tracheostomy /Chronic respiratory failure 10/22/2017 Pulmonary toilet, trach care Duo nebs as needed Pulm following, continue Oxygen to keep oxygen saturation over 92%, Bronchodilator. Large left pneumothorax Resolved Chest tube placed 05/07, discontinued 05/12/17 Hepatitis C LFTs normalized Negative genotype/viral load Diabetes mellitus SSI Novolin R High-dose scale Levemir insulin 8u Q12 FEN PEG tube feeding with Glucerna 1.5 @ 35 cc and eventually increase to 45 cc/ hr today Loose Stools C-diff PCR negative Continue Questran, Lomotil. Anal Fissure continue wound care Fever-Resolved DVT prophylaxis Heparin Problem Qualifiers (1) Acute respiratory failure: Qualified Codes: J96.00 - Acute respiratory failure, unspecified whether with hypoxia or hypercapnia (2) Sacral decubitus ulcer: Qualified Codes: L89.152 - Pressure ulcer of sacral region, stage 2 (3) Chronic respiratory failure: Qualified Codes: J96.11 - Chronic respiratory failure with hypoxia Benja Rey MD Dec 10, 2017 10:02
--- NOTE | 2017-12-10 20:28 | HHI.PR ---
Subjective Remarks No events overnight. Patient is on TP's with 40% FIO2. . Tolerating tube feeds. Tolerates TF No fever No new complaint Trach down sized #6 Objective Vital Signs Vital Signs Date Time Temp Pulse Resp B/P (MAP) Pulse Ox O2 Delivery O2 Flow Rate FiO2 12/10/17 16:00 96.9 54 20 109/50 (69) 96 12/10/17 15:00 54 12/10/17 12:00 97.2 59 22 95/51 (66) 99 12/10/17 08:45 98 Trach Collar 5.00 28 12/10/17 08:00 97.9 60 20 147/67 (93) 99 12/10/17 07:00 72 12/10/17 07:00 Trach Collar 5.00 28 12/10/17 04:00 98.6 67 20 131/63 (85) 100 12/10/17 00:00 98.1 71 20 117/60 (79) 96 12/09/17 23:00 71 I/O 12/09/17 12/09/17 12/09/17 12/10/17 12/10/17 12/10/17 07:00 15:00 23:00 07:00 15:00 23:00 Intake Total 390 ml 462 ml 479 ml 400 ml Balance 390 ml 462 ml 479 ml 400 ml IV Total 10 ml Tube Feeding 120 ml 382 ml 389 ml 320 ml Other 260 ml 80 ml 90 ml 80 ml # Voids 4 3 2 2 # Bowel Movements 1 1 2 1 Objective Remarks GENERAL: Elderly female,NAD SKIN: Warm and dry. HEAD: Normocephalic. EYES: No scleral icterus. No injection or drainage. NECK: Supple, trachea midline. No JVD or lymphadenopathy. + trach CARDIOVASCULAR: Regular rate and rhythm without murmurs, gallops, or rubs. RESPIRATORY: Breath sounds equal bilaterally. No accessory muscle use. GASTROINTESTINAL: Abdomen soft, non-tender, nondistended. MUSCULOSKELETAL: No cyanosis, or edema. BACK: Nontender without obvious deformity. No CVA tenderness. A/P Assessment and Plan Chronic resp failure, ,S/P Trach CVA Pneumonia Calcified Granuloma LLL Pseudomonas Tracheobronchitis, PLAN: Continue with TP's, keep sats >92% Bronchodilators, Pulm toilet, trach care CT chest 3/3: No PE,adenopathy in the right paratracheal, subcarinal and hilar regions with numerous prominent lymph nodes seen. Cont TF- GI/DVT prophylaxis Continue treatment plan. Chris Rizo MD Dec 10, 2017 20:28
[2017-12-11] VITALS (9 sets, daily range): BP systolic 119–156; BP diastolic 63–83; PULSE 66–100; RESP 16–20; TEMP 97.2–98.4; O2SAT 94–98
[2017-12-11] MEDS: INSULIN NovoLIN REGULAR SUPPLEMENTAL SCALE SQ SCH ×4 (00:58→18:10)
[2017-12-11] MEDS: INSULIN DETEMIR 100 UNITS/ML VIAL SQ SCH ×2 (00:58→13:13)
[2017-12-11] MEDS: HEPARIN SODIUM - SQ 10,000 UNITS/ML VIAL SQ SCH ×3 (05:49→22:00)
[2017-12-11] MEDS: hydrALAZINE HCL 10 MG TAB PEG SCH ×3 (05:49→22:00)
[2017-12-11] MEDS: ARTIFICIAL TEARS OPTH SOLN 15 ML BTL EACH EYE SCH ×3 (05:50→22:28)
[2017-12-11] MEDS: CALCIUM/VITAMIN D 250 MG/125 U TAB PEG SCH ×3 (09:06→18:10)
[2017-12-11] MEDS: FUROSEMIDE 40 MG TAB PO SCH (09:07)
[2017-12-11] MEDS: LACTOBACILLUS ACIDOPHILUS TAB PEG SCH ×2 (09:07→21:00)
[2017-12-11] MEDS: LISINOPRIL 5 MG TAB PEG SCH (09:07)
[2017-12-11] MEDS: ASPIRIN 325 MG TAB DOBHOFF SCH (09:07)
[2017-12-11] MEDS: LANSOPRAZOLE SOLUTAB 30 MG TAB NG SCH (09:07)
[2017-12-11] MEDS: CHOLECALCIFEROL (VIT D3) 5000 UNIT CAP PEG SCH (09:08)
[2017-12-11] MEDS: POVIDONE IODINE 10% SOLN 480 ML BTL EXTERNAL SCH ×2 (09:08→21:00)
--- NOTE | 2017-12-11 10:12 | HHI.PR ---
Subjective Remarks Patient seen and examined Tolerated tube feeds without any complication Respiratory status stable Afebrile Objective Vitals Vital Signs Date Time Temp Pulse Resp B/P (MAP) Pulse Ox O2 Delivery O2 Flow Rate FiO2 12/11/17 07:55 97 Trach Collar 5.00 28 12/11/17 04:00 97.7 74 20 134/65 (88) 96 12/11/17 00:00 98.1 72 20 132/63 (86) 94 12/10/17 22:19 98 Trach Collar 5.00 28 12/10/17 20:00 96 Trach Collar 5.00 28 12/10/17 20:00 62 12/10/17 20:00 98.1 67 20 128/62 (84) 95 12/10/17 16:00 96.9 54 20 109/50 (69) 96 12/10/17 15:00 54 12/10/17 12:00 97.2 59 22 95/51 (66) 99 I/O 12/10/17 12/10/17 12/10/17 12/11/17 12/11/17 12/11/17 07:00 15:00 23:00 07:00 15:00 23:00 Intake Total 479 ml 400 ml 542 ml Balance 479 ml 400 ml 542 ml Tube Feeding 389 ml 320 ml 422 ml Other 90 ml 80 ml 120 ml # Voids 2 2 3 # Bowel Movements 2 1 Objective Remarks GENERAL: NAD SKIN: Warm and dry. HEAD: Normocephalic. EYES: No scleral icterus. No injection or drainage. NECK: Supple, trachea midline. No JVD or lymphadenopathy. CARDIOVASCULAR: Regular rate and rhythm without murmurs, gallops, or rubs. RESPIRATORY: Breath sounds equal bilaterally. No accessory muscle use. GASTROINTESTINAL: Abdomen soft, non-tender, nondistended. MUSCULOSKELETAL: No cyanosis, or edema. BACK: Nontender without obvious deformity. No CVA tenderness. Procedures PEG tube trach 05/15/17 and PEG 05/16/17 A/P Problem List: (1) Acute ischemic left middle cerebral artery (MCA) stroke ICD Code: I63.512 - Cerebral infarction due to unspecified occlusion or stenosis of left middle cerebral artery Status: Acute (2) Acute respiratory failure ICD Code: J96.00 - Acute respiratory failure, unspecified whether with hypoxia or hypercapnia (3) Right hemiplegia ICD Code: G81.91 - Hemiplegia, unspecified affecting right dominant side Status: Acute (4) Sacral decubitus ulcer ICD Code: L89.159 - Pressure ulcer of sacral region, unspecified stage Status: Chronic (5) HCAP (healthcare-associated pneumonia) ICD Code: J18.9 - Pneumonia, unspecified organism Status: Resolved (6) 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 daily. Urinary retention No leukocytosis Culture grew Aerococcus, finished Augmentin November 07 - November 14. Leavitt replaced Elevated D-dimer Ordered 10/31 due to increased FiO2 demand. Since D-dimer elevated, CTA chest obtained to r/o PE which was negative Likely elevated in light of chronic illness RUE U/S negative for DVT - Left MCA stroke 5.5 mm of [id number] subfalcine herniation, diagnosed 04/24. Was not a candidate for thrombolysis at that time. Increasing edema seen on repeat CT 04/28 with a reduction in midline shift on another repeat on 04/30 Neurologic condition remained poor and she underwent trach 05/15/17 and PEG Persistent right-sided hemiparesis. Previously seen by neurology, signed off Previously seen by neurosurgery, signed off Continue daily ASA Hypertension / CHF Controlled Continue Amlodipine, Doxazosin, Hydralazine, Clonidine, Diuretics. Echo 10/06/17 LVSF EF = 25-30%. On furosemide 20 mg daily Chronic Tracheostomy /Chronic respiratory failure 10/22/2017 Pulmonary toilet, trach care Duo nebs as needed Pulm following, continue Oxygen to keep oxygen saturation over 92%, Bronchodilator. Large left pneumothorax Resolved Chest tube placed 05/07, discontinued 05/12/17 Hepatitis C LFTs normalized Negative genotype/viral load Diabetes mellitus SSI Novolin R High-dose scale Levemir insulin 8u Q12 FEN PEG tube feeding with Glucerna 1.5 @ 45 cc/hr Loose Stools C-diff PCR negative Continue Questran, Lomotil. Anal Fissure continue wound care Fever-Resolved DVT prophylaxis Heparin Problem Qualifiers (1) Acute respiratory failure: Qualified Codes: J96.00 - Acute respiratory failure, unspecified whether with hypoxia or hypercapnia (2) Sacral decubitus ulcer: Qualified Codes: L89.152 - Pressure ulcer of sacral region, stage 2 (3) Chronic respiratory failure: Qualified Codes: J96.11 - Chronic respiratory failure with hypoxia Benja Rey MD Dec 11, 2017 10:12
--- NOTE | 2017-12-11 19:36 | HHI.PR ---
Subjective Remarks No events overnight. Patient is on TP's with 40% FIO2. . Tolerating tube feeds. Tolerates TF No fever No new complaint Trach down sized #6 Objective Vital Signs Vital Signs Date Time Temp Pulse Resp B/P (MAP) Pulse Ox O2 Delivery O2 Flow Rate FiO2 12/11/17 16:27 98.2 85 18 119/64 (82) 96 12/11/17 12:00 97.3 66 18 141/72 (95) 97 12/11/17 10:21 97 Trach Collar 5.00 28 12/11/17 08:00 97.2 100 18 139/66 (90) 97 12/11/17 07:55 97 Trach Collar 5.00 28 12/11/17 04:00 97.7 74 20 134/65 (88) 96 12/11/17 00:00 98.1 72 20 132/63 (86) 94 12/10/17 22:19 98 Trach Collar 5.00 28 12/10/17 20:00 96 Trach Collar 5.00 28 12/10/17 20:00 62 12/10/17 20:00 98.1 67 20 128/62 (84) 95 I/O 12/10/17 12/10/17 12/10/17 12/11/17 12/11/17 12/11/17 07:00 15:00 23:00 07:00 15:00 23:00 Intake Total 479 ml 400 ml 542 ml 143 ml Balance 479 ml 400 ml 542 ml 143 ml Tube Feeding 389 ml 320 ml 422 ml 143 ml Other 90 ml 80 ml 120 ml # Voids 2 2 3 2 # Bowel Movements 2 1 Objective Remarks GENERAL: Elderly female,NAD SKIN: Warm and dry. HEAD: Normocephalic. EYES: No scleral icterus. No injection or drainage. NECK: Supple, trachea midline. No JVD or lymphadenopathy. + trach CARDIOVASCULAR: Regular rate and rhythm without murmurs, gallops, or rubs. RESPIRATORY: Breath sounds equal bilaterally. No accessory muscle use. GASTROINTESTINAL: Abdomen soft, non-tender, nondistended. MUSCULOSKELETAL: No cyanosis, or edema. BACK: Nontender without obvious deformity. No CVA tenderness. A/P Assessment and Plan Chronic resp failure, ,S/P Trach CVA Pneumonia Calcified Granuloma LLL Pseudomonas Tracheobronchitis, PLAN: Continue with TP's, keep sats >92% Bronchodilators, Pulm toilet, trach care CT chest 11/01: No PE,adenopathy in the right paratracheal, subcarinal and hilar regions with numerous prominent lymph nodes seen. Cont TF- GI/DVT prophylaxis DW Rn at [place],Chris Hester MD Dec 11, 2017 19:36
[2017-12-12] VITALS (11 sets, daily range): BP systolic 112–148; BP diastolic 58–77; PULSE 67–91; RESP 16–22; TEMP 97.5–99; O2SAT 96–100
[2017-12-12] MEDS: INSULIN DETEMIR 100 UNITS/ML VIAL SQ SCH ×3 (00:17→23:59)
[2017-12-12] MEDS: INSULIN NovoLIN REGULAR SUPPLEMENTAL SCALE SQ SCH ×4 (00:29→18:15)
[2017-12-12] MEDS: hydrALAZINE HCL 10 MG TAB PEG SCH ×3 (05:40→21:32)
[2017-12-12] MEDS: ARTIFICIAL TEARS OPTH SOLN 15 ML BTL EACH EYE SCH ×3 (05:41→20:34)
[2017-12-12] MEDS: HEPARIN SODIUM - SQ 10,000 UNITS/ML VIAL SQ SCH ×3 (05:41→21:33)
[2017-12-12] MEDS: CALCIUM/VITAMIN D 250 MG/125 U TAB PEG SCH ×3 (08:46→18:15)
[2017-12-12] MEDS: LANSOPRAZOLE SOLUTAB 30 MG TAB NG SCH (08:46)
[2017-12-12] MEDS: ASPIRIN 325 MG TAB DOBHOFF SCH (08:46)
[2017-12-12] MEDS: POVIDONE IODINE 10% SOLN 480 ML BTL EXTERNAL SCH ×2 (08:46→20:35)
[2017-12-12] MEDS: LACTOBACILLUS ACIDOPHILUS TAB PEG SCH ×2 (08:46→20:32)
[2017-12-12] MEDS: FUROSEMIDE 40 MG TAB PO SCH (08:47)
[2017-12-12] MEDS: CHOLECALCIFEROL (VIT D3) 5000 UNIT CAP PEG SCH (08:47)
[2017-12-12] MEDS: LISINOPRIL 5 MG TAB PEG SCH (08:47)
--- NOTE | 2017-12-12 09:46 | HHI.PR ---
Subjective Remarks Patient seen and examined No acute event overnight Currently afebrile and current vitals stable Case discussed with registered nurse Objective Vitals Vital Signs Date Time Temp Pulse Resp B/P (MAP) Pulse Ox O2 Delivery O2 Flow Rate FiO2 12/12/17 08:28 97 Trach Collar 6.00 28 12/12/17 08:00 99.0 75 20 148/71 (96) 97 12/12/17 07:00 75 12/12/17 07:00 Trach Collar 5.00 28 12/12/17 04:00 98.5 67 18 115/62 (79) 99 12/12/17 00:18 98.6 77 16 146/77 (100) 96 12/11/17 23:00 76 12/11/17 21:30 98.4 75 16 156/83 (107) 98 12/11/17 21:11 96 Trach Collar 28 12/11/17 21:00 97 Trach Collar 5.00 28 12/11/17 16:27 98.2 85 18 119/64 (82) 96 12/11/17 12:00 97.3 66 18 141/72 (95) 97 12/11/17 10:21 97 Trach Collar 5.00 28 I/O 12/11/17 12/11/17 12/11/17 12/12/17 12/12/17 12/12/17 07:00 15:00 23:00 07:00 15:00 23:00 Intake Total 542 ml 143 ml Balance 542 ml 143 ml Tube Feeding 422 ml 143 ml Other 120 ml # Voids 3 2 # Bowel Movements 1 Objective Remarks GENERAL: NAD SKIN: Warm and dry. HEAD: Normocephalic. EYES: No scleral icterus. No injection or drainage. NECK: Supple, trachea midline. No JVD or lymphadenopathy. CARDIOVASCULAR: Regular rate and rhythm without murmurs, gallops, or rubs. RESPIRATORY: Breath sounds equal bilaterally. No accessory muscle use. GASTROINTESTINAL: Abdomen soft, non-tender, nondistended. MUSCULOSKELETAL: No cyanosis, or edema. BACK: Nontender without obvious deformity. No CVA tenderness. Procedures PEG tube trach 05/15/17 and PEG 05/16/17 A/P Problem List: (1) Acute ischemic left middle cerebral artery (MCA) stroke ICD Code: I63.512 - Cerebral infarction due to unspecified occlusion or stenosis of left middle cerebral artery Status: Acute (2) Acute respiratory failure ICD Code: J96.00 - Acute respiratory failure, unspecified whether with hypoxia or hypercapnia (3) Right hemiplegia ICD Code: G81.91 - Hemiplegia, unspecified affecting right dominant side Status: Acute (4) Sacral decubitus ulcer ICD Code: L89.159 - Pressure ulcer of sacral region, unspecified stage Status: Chronic (5) HCAP (healthcare-associated pneumonia) ICD Code: J18.9 - Pneumonia, unspecified organism Status: Resolved (6) 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 daily. Urinary retention No leukocytosis Culture grew Aerococcus, finished Augmentin November 07 - November 14. Leavitt replaced Elevated D-dimer Ordered 10/31 due to increased FiO2 demand. Since D-dimer elevated, CTA chest obtained to r/o PE which was negative Likely elevated in light of chronic illness RUE U/S negative for DVT - Left MCA stroke 5.5 mm of [id number] subfalcine herniation, diagnosed 04/24. Was not a candidate for thrombolysis at that time. Increasing edema seen on repeat CT 04/28 with a reduction in midline shift on another repeat on 04/30 Neurologic condition remained poor and she underwent trach 05/15/17 and PEG Persistent right-sided hemiparesis. Previously seen by neurology, signed off Previously seen by neurosurgery, signed off Continue daily ASA Hypertension / CHF Controlled Continue Amlodipine, Doxazosin, Hydralazine, Clonidine, Diuretics. Echo 10/06/17 LVSF EF = 25-30%. On furosemide 20 mg daily Chronic Tracheostomy /Chronic respiratory failure 10/22/2017 Pulmonary toilet, trach care Duo nebs as needed Pulm following, continue Oxygen to keep oxygen saturation over 92%, Bronchodilator. Large left pneumothorax Resolved Chest tube placed 9/6, discontinued 05/12/17 Hepatitis C LFTs normalized Negative genotype/viral load Diabetes mellitus SSI Novolin R High-dose scale Levemir insulin 8u Q12 FEN PEG tube feeding with Glucerna 1.5 @ 45 cc/hr Loose Stools-resolved C-diff PCR negative Continue Questran, Lomotil. Anal Fissure continue wound care Fever-Resolved DVT prophylaxis Heparin Continue current treatment as of December 12, 2017 Problem Qualifiers (1) Acute respiratory failure: Qualified Codes: J96.00 - Acute respiratory failure, unspecified whether with hypoxia or hypercapnia (2) Sacral decubitus ulcer: Qualified Codes: L89.152 - Pressure ulcer of sacral region, stage 2 (3) Chronic respiratory failure: Qualified Codes: J96.11 - Chronic respiratory failure with hypoxia Benja Rey MD Dec 12, 2017 09:46
--- NOTE | 2017-12-12 18:27 | HHI.PR ---
Subjective Remarks No events overnight. Patient is on TP's with 40% FIO2. . Tolerating tube feeds. Tolerates TF No fever No new complaint Small amount of thick mucous Objective Vital Signs Vital Signs Date Time Temp Pulse Resp B/P (MAP) Pulse Ox O2 Delivery O2 Flow Rate FiO2 12/12/17 16:00 98.6 75 22 144/73 (96) 100 12/12/17 12:00 98.0 91 22 112/72 (85) 100 12/12/17 08:28 97 Trach Collar 6.00 28 12/12/17 08:00 99.0 75 20 148/71 (96) 97 12/12/17 07:00 75 12/12/17 07:00 Trach Collar 5.00 28 12/12/17 04:00 98.5 67 18 115/62 (79) 99 12/12/17 00:18 98.6 77 16 146/77 (100) 96 12/11/17 23:00 76 12/11/17 21:30 98.4 75 16 156/83 (107) 98 12/11/17 21:11 96 Trach Collar 28 12/11/17 21:00 97 Trach Collar 5.00 28 I/O 12/11/17 12/11/17 12/11/17 12/12/17 12/12/17 12/12/17 07:00 15:00 23:00 07:00 15:00 23:00 Intake Total 542 ml 143 ml 748 ml Output Total 300 ml Balance 542 ml 143 ml 448 ml IV Total 0 ml Tube Feeding 422 ml 143 ml 748 ml Other 120 ml Output Urine Total 300 ml # Voids 3 2 2 # Bowel Movements 2 Objective Remarks GENERAL: Elderly female,NAD SKIN: Warm and dry. HEAD: Normocephalic. EYES: No scleral icterus. No injection or drainage. NECK: Supple, trachea midline. No JVD or lymphadenopathy. + trach CARDIOVASCULAR: Regular rate and rhythm without murmurs, gallops, or rubs. RESPIRATORY: Breath sounds equal bilaterally. No accessory muscle use. GASTROINTESTINAL: Abdomen soft, non-tender, nondistended. MUSCULOSKELETAL: No cyanosis, or edema. BACK: Nontender without obvious deformity. No CVA tenderness. A/P Assessment and Plan Chronic resp failure, ,S/P Trach CVA Pneumonia Calcified Granuloma LLL Pseudomonas Tracheobronchitis, PLAN: Continue with TP's, keep sats >92% Bronchodilators, Pulm toilet, trach care CT chest 11/01: No PE,adenopathy in the right paratracheal, subcarinal and hilar regions with numerous prominent lymph nodes seen. Cont TF- GI/DVT prophylaxis DW Rn at Stable from pulm standpoint Available prn over weekend Chris Rizo MD Dec 12, 2017 18:27
[2017-12-12] MEDS: DIPHENOXYLATE/ATROPINE 2.5 MG/0.025 MG/5 ML CUP PO PRN (20:33)
[2017-12-13] VITALS (8 sets, daily range): BP systolic 107–135; BP diastolic 57–80; PULSE 62–80; RESP 18–20; TEMP 97.7–99; O2SAT 94–99
[2017-12-13] MEDS: INSULIN NovoLIN REGULAR SUPPLEMENTAL SCALE SQ SCH ×4 (00:01→17:54)
[2017-12-13] MEDS: HEPARIN SODIUM - SQ 10,000 UNITS/ML VIAL SQ SCH ×3 (05:18→21:35)
[2017-12-13] MEDS: hydrALAZINE HCL 10 MG TAB PEG SCH ×3 (05:18→21:35)
[2017-12-13] MEDS: ARTIFICIAL TEARS OPTH SOLN 15 ML BTL EACH EYE SCH ×3 (05:19→20:41)
[2017-12-13] MEDS: POVIDONE IODINE 10% SOLN 480 ML BTL EXTERNAL SCH ×2 (09:46→20:39)
[2017-12-13] MEDS: DIPHENOXYLATE/ATROPINE 2.5 MG/0.025 MG/5 ML CUP PO PRN (09:46)
[2017-12-13] MEDS: LACTOBACILLUS ACIDOPHILUS TAB PEG SCH ×2 (09:46→20:40)
[2017-12-13] MEDS: CALCIUM/VITAMIN D 250 MG/125 U TAB PEG SCH ×3 (09:46→17:53)
[2017-12-13] MEDS: LANSOPRAZOLE SOLUTAB 30 MG TAB NG SCH (09:46)
[2017-12-13] MEDS: CHOLECALCIFEROL (VIT D3) 5000 UNIT CAP PEG SCH (09:46)
[2017-12-13] MEDS: FUROSEMIDE 40 MG TAB PO SCH (09:47)
[2017-12-13] MEDS: LISINOPRIL 5 MG TAB PEG SCH (09:47)
--- NOTE | 2017-12-13 09:55 | HHI.PR ---
Subjective Remarks Patient seen and examined no acute event overnight stable and no change Objective Vitals Vital Signs Date Time Temp Pulse Resp B/P (MAP) Pulse Ox O2 Delivery O2 Flow Rate FiO2 12/13/17 04:00 98.8 74 20 122/58 (79) 97 12/13/17 00:02 97.7 75 20 135/73 (93) 99 12/12/17 23:00 68 12/12/17 21:02 97 Trach Collar 28 12/12/17 20:00 75 12/12/17 19:36 98 Trach Collar 6.00 28 12/12/17 19:33 97.5 74 20 118/58 (78) 98 12/12/17 16:00 98.6 75 22 144/73 (96) 100 12/12/17 12:00 98.0 91 22 112/72 (85) 100 I/O 12/12/17 12/12/17 12/12/17 12/13/17 12/13/17 12/13/17 07:00 15:00 23:00 07:00 15:00 23:00 Intake Total 748 ml 840 ml Output Total 300 ml 400 ml Balance 448 ml 440 ml IV Total 0 ml Tube Feeding 748 ml 540 ml Other 300 ml Output Urine Total 300 ml 400 ml # Voids 2 # Bowel Movements 2 2 Objective Remarks GENERAL: NAD SKIN: Warm and dry. HEAD: Normocephalic. EYES: No scleral icterus. No injection or drainage. NECK: Supple, trachea midline. No JVD or lymphadenopathy. CARDIOVASCULAR: Regular rate and rhythm without murmurs, gallops, or rubs. RESPIRATORY: Breath sounds equal bilaterally. No accessory muscle use. GASTROINTESTINAL: Abdomen soft, non-tender, nondistended. MUSCULOSKELETAL: No cyanosis, or edema. BACK: Nontender without obvious deformity. No CVA tenderness. Procedures PEG tube trach 05/15/17 and PEG 05/16/17 A/P Problem List: (1) Acute ischemic left middle cerebral artery (MCA) stroke ICD Code: I63.512 - Cerebral infarction due to unspecified occlusion or stenosis of left middle cerebral artery Status: Acute (2) Acute respiratory failure ICD Code: J96.00 - Acute respiratory failure, unspecified whether with hypoxia or hypercapnia (3) Right hemiplegia ICD Code: G81.91 - Hemiplegia, unspecified affecting right dominant side Status: Acute (4) Sacral decubitus ulcer ICD Code: L89.159 - Pressure ulcer of sacral region, unspecified stage Status: Chronic (5) HCAP (healthcare-associated pneumonia) ICD Code: J18.9 - Pneumonia, unspecified organism Status: Resolved (6) 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 daily. Urinary retention No leukocytosis Culture grew Aerococcus, finished Augmentin November 07 - November 14. Leavitt replaced Elevated D-dimer Ordered 10/31 due to increased FiO2 demand. Since D-dimer elevated, CTA chest obtained to r/o PE which was negative Likely elevated in light of chronic illness RUE U/S negative for DVT - Left MCA stroke 5.5 mm of [id number] subfalcine herniation, diagnosed 04/24. Was not a candidate for thrombolysis at that time. Increasing edema seen on repeat CT 04/28 with a reduction in midline shift on another repeat on 04/30 Neurologic condition remained poor and she underwent trach 05/15/17 and PEG Persistent right-sided hemiparesis. Previously seen by neurology, signed off Previously seen by neurosurgery, signed off Continue daily ASA Hypertension / CHF Controlled Continue Amlodipine, Doxazosin, Hydralazine, Clonidine, Diuretics. Echo 10/06/17 LVSF EF = 25-30%. On furosemide 20 mg daily Chronic Tracheostomy /Chronic respiratory failure 10/22/2017 Pulmonary toilet, trach care Duo nebs as needed Pulm following, continue Oxygen to keep oxygen saturation over 92%, Bronchodilator. Large left pneumothorax Resolved Chest tube placed 05/07, discontinued 05/12/17 Hepatitis C LFTs normalized Negative genotype/viral load Diabetes mellitus SSI Novolin R High-dose scale Levemir insulin 8u Q12 FEN PEG tube feeding with Glucerna 1.5 @ 45 cc/hr Loose Stools-resolved C-diff PCR negative Continue Mere Bustillosmotil. Anal Fissure continue wound care Fever-Resolved DVT prophylaxis Heparin Continue current treatment as of December 13, 2017 Problem Qualifiers (1) Acute respiratory failure: Qualified Codes: J96.00 - Acute respiratory failure, unspecified whether with hypoxia or hypercapnia (2) Sacral decubitus ulcer: Qualified Codes: L89.152 - Pressure ulcer of sacral region, stage 2 (3) Chronic respiratory failure: Qualified Codes: J96.11 - Chronic respiratory failure with hypoxia Benja Rey MD Dec 13, 2017 09:55
[2017-12-13] MEDS: ASPIRIN 325 MG TAB DOBHOFF SCH (15:16)
[2017-12-13] MEDS: FREE WATER PO SCH ×2 (17:53→23:12)
[2017-12-13] MEDS: INSULIN DETEMIR 100 UNITS/ML VIAL SQ SCH ×2 (17:53→23:19)
[2017-12-13] MEDS ORDERED: FREE WATER PEG SCH (18:00)
[2017-12-14] VITALS (8 sets, daily range): BP systolic 114–150; BP diastolic 54–72; PULSE 67–89; RESP 18–22; TEMP 98.2–99.8; O2SAT 94–99
[2017-12-14] MEDS: INSULIN NovoLIN REGULAR SUPPLEMENTAL SCALE SQ SCH ×4 (00:16→17:43)
[2017-12-14] MEDS: hydrALAZINE HCL 10 MG TAB PEG SCH ×3 (05:51→21:24)
[2017-12-14] MEDS: HEPARIN SODIUM - SQ 10,000 UNITS/ML VIAL SQ SCH ×3 (05:51→21:24)
[2017-12-14] MEDS: FREE WATER PO SCH ×3 (05:51→17:42)
[2017-12-14] MEDS: ARTIFICIAL TEARS OPTH SOLN 15 ML BTL EACH EYE SCH ×3 (06:03→21:25)
--- NOTE | 2017-12-14 09:34 | HHI.PR ---
Subjective Remarks Patient seen and examined Urine output 200 cc overnight No other issues Objective Vitals Vital Signs Date Time Temp Pulse Resp B/P (MAP) Pulse Ox O2 Delivery O2 Flow Rate FiO2 12/14/17 08:00 99.8 76 20 114/54 (74) 98 12/14/17 07:54 98 Trach Collar 28 12/14/17 07:00 98 Trach Collar 5.00 28 12/14/17 04:06 98.9 73 20 124/62 (82) 97 12/14/17 02:46 99 Trach Collar 5.00 28 12/13/17 23:19 98.9 68 20 115/58 (77) 98 12/13/17 20:00 Trach Collar 6.00 28 12/13/17 19:53 98.3 70 20 107/57 (74) 99 12/13/17 16:00 98.5 62 20 117/60 (79) 94 12/13/17 12:00 98.6 64 18 118/80 (93) 99 12/13/17 11:12 98 Trach Collar 5.00 28 I/O 12/13/17 12/13/17 12/13/17 12/14/17 12/14/17 12/14/17 07:00 15:00 23:00 07:00 15:00 23:00 Intake Total 840 ml 1340 ml 1140 ml Output Total 400 ml 100 ml 500 ml Balance 440 ml 1240 ml 640 ml Tube Feeding 540 ml 540 ml 540 ml Other 300 ml 800 ml 600 ml Output Urine Total 400 ml 100 ml 500 ml # Voids 2 # Bowel Movements 2 2 1 Objective Remarks GENERAL: NAD SKIN: Warm and dry. HEAD: Normocephalic. EYES: No scleral icterus. No injection or drainage. NECK: Supple, trachea midline. No JVD or lymphadenopathy. CARDIOVASCULAR: Regular rate and rhythm without murmurs, gallops, or rubs. RESPIRATORY: Breath sounds equal bilaterally. No accessory muscle use. GASTROINTESTINAL: Abdomen soft, non-tender, nondistended. MUSCULOSKELETAL: No cyanosis, or edema. BACK: Nontender without obvious deformity. No CVA tenderness. Procedures PEG tube trach 05/15/17 and PEG 05/16/17 A/P Problem List: (1) Acute ischemic left middle cerebral artery (MCA) stroke ICD Code: I63.512 - Cerebral infarction due to unspecified occlusion or stenosis of left middle cerebral artery Status: Acute (2) Acute respiratory failure ICD Code: J96.00 - Acute respiratory failure, unspecified whether with hypoxia or hypercapnia (3) Right hemiplegia ICD Code: G81.91 - Hemiplegia, unspecified affecting right dominant side Status: Acute (4) Sacral decubitus ulcer ICD Code: L89.159 - Pressure ulcer of sacral region, unspecified stage Status: Chronic (5) HCAP (healthcare-associated pneumonia) ICD Code: J18.9 - Pneumonia, unspecified organism Status: Resolved (6) 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 daily. Urinary retention No leukocytosis Culture grew Aerococcus, finished Augmentin November 07 - November 14. Leavitt replaced Elevated D-dimer Ordered 10/31 due to increased FiO2 demand. Since D-dimer elevated, CTA chest obtained to r/o PE which was negative Likely elevated in light of chronic illness RUE U/S negative for DVT - Left MCA stroke 5.5 mm of [id number] subfalcine herniation, diagnosed 04/24. Was not a candidate for thrombolysis at that time. Increasing edema seen on repeat CT 04/28 with a reduction in midline shift on another repeat on 04/30 Neurologic condition remained poor and she underwent trach 05/15/17 and PEG Persistent right-sided hemiparesis. Previously seen by neurology, signed off Previously seen by neurosurgery, signed off Continue daily ASA Hypertension / CHF Controlled Continue Amlodipine, Doxazosin, Hydralazine, Clonidine, Diuretics. Echo 10/06/17 LVSF EF = 25-30%. On furosemide 20 mg daily Chronic Tracheostomy /Chronic respiratory failure 10/22/2017 Pulmonary toilet, trach care Duo nebs as needed Pulm following, continue Oxygen to keep oxygen saturation over 92%, Bronchodilator. Large left pneumothorax Resolved Chest tube placed 05/07, discontinued 05/12/17 Hepatitis C LFTs normalized Negative genotype/viral load Diabetes mellitus SSI Novolin R High-dose scale Levemir insulin 8u Q12 FEN PEG tube feeding with Glucerna 1.5 @ 45 cc/hr Loose Stools-resolved C-diff PCR negative Continue Questran, Lomotil. Anal Fissure continue wound care Fever-Resolved DVT prophylaxis Heparin Continue current treatment as of December 14, 2017 Problem Qualifiers (1) Acute respiratory failure: Qualified Codes: J96.00 - Acute respiratory failure, unspecified whether with hypoxia or hypercapnia (2) Sacral decubitus ulcer: Qualified Codes: L89.152 - Pressure ulcer of sacral region, stage 2 (3) Chronic respiratory failure: Qualified Codes: J96.11 - Chronic respiratory failure with hypoxia Benja Rey MD Dec 14, 2017 09:34
[2017-12-14] MEDS: LISINOPRIL 5 MG TAB PEG SCH (10:01)
[2017-12-14] MEDS: DIPHENOXYLATE/ATROPINE 2.5 MG/0.025 MG/5 ML CUP PO PRN ×2 (10:01→17:42)
[2017-12-14] MEDS: CALCIUM/VITAMIN D 250 MG/125 U TAB PEG SCH ×3 (10:01→17:42)
[2017-12-14] MEDS: LANSOPRAZOLE SOLUTAB 30 MG TAB NG SCH (10:01)
[2017-12-14] MEDS: ASPIRIN 325 MG TAB DOBHOFF SCH (10:01)
[2017-12-14] MEDS: FUROSEMIDE 40 MG TAB PO SCH (10:02)
[2017-12-14] MEDS: oxyCODONE HCL ORAL CONC 5 MG/0.25 ML SYRINGE PO PRN ×2 (10:02→17:42)
[2017-12-14] MEDS: LACTOBACILLUS ACIDOPHILUS TAB PEG SCH ×2 (10:02→21:24)
[2017-12-14] MEDS: CHOLECALCIFEROL (VIT D3) 5000 UNIT CAP PEG SCH (10:02)
[2017-12-14] MEDS: POVIDONE IODINE 10% SOLN 480 ML BTL EXTERNAL SCH ×2 (10:03→21:25)
[2017-12-14] MEDS: INSULIN DETEMIR 100 UNITS/ML VIAL SQ SCH (13:30)
[2017-12-15] VITALS (8 sets, daily range): BP systolic 115–126; BP diastolic 57–78; PULSE 66–82; RESP 16–20; TEMP 97.8–100.3; O2SAT 96–99
[2017-12-15] MEDS: INSULIN DETEMIR 100 UNITS/ML VIAL SQ SCH ×2 (00:24→13:35)
[2017-12-15] MEDS: INSULIN NovoLIN REGULAR SUPPLEMENTAL SCALE SQ SCH ×4 (00:24→18:30)
[2017-12-15] MEDS: FREE WATER PO SCH ×5 (00:24→23:53)
[2017-12-15] MEDS: hydrALAZINE HCL 10 MG TAB PEG SCH ×3 (05:51→21:39)
[2017-12-15] MEDS: HEPARIN SODIUM - SQ 10,000 UNITS/ML VIAL SQ SCH ×3 (05:51→21:40)
[2017-12-15] MEDS: ACETAMINOPHEN 650 MG/20.3 ML UDC PEG PRN (05:51)
[2017-12-15] MEDS: DIPHENOXYLATE/ATROPINE 2.5 MG/0.025 MG/5 ML CUP PO PRN ×2 (05:51→23:53)
[2017-12-15] MEDS: ARTIFICIAL TEARS OPTH SOLN 15 ML BTL EACH EYE SCH ×3 (05:52→21:40)
[2017-12-15] MEDS: LISINOPRIL 5 MG TAB PEG SCH (08:30)
[2017-12-15] MEDS: FUROSEMIDE 40 MG TAB PO SCH (08:30)
[2017-12-15] MEDS: LANSOPRAZOLE SOLUTAB 30 MG TAB NG SCH (08:31)
[2017-12-15] MEDS: CALCIUM/VITAMIN D 250 MG/125 U TAB PEG SCH ×3 (08:31→16:54)
[2017-12-15] MEDS: LACTOBACILLUS ACIDOPHILUS TAB PEG SCH ×2 (08:31→21:40)
[2017-12-15] MEDS: CHOLECALCIFEROL (VIT D3) 5000 UNIT CAP PEG SCH (08:31)
[2017-12-15] MEDS: CHOLESTYRAMINE LIGHT 4 GM PACKAGE PEG PRN (08:31)
[2017-12-15] MEDS: ASPIRIN 325 MG TAB DOBHOFF SCH (08:32)
[2017-12-15] MEDS: POVIDONE IODINE 10% SOLN 480 ML BTL EXTERNAL SCH ×2 (08:32→21:40)
--- NOTE | 2017-12-15 10:04 | HHI.PR ---
Subjective Remarks Patient seen and examined She remained stable no change per nursing report Objective Vitals Vital Signs Date Time Temp Pulse Resp B/P (MAP) Pulse Ox O2 Delivery O2 Flow Rate FiO2 12/15/17 04:00 100.3 68 18 120/68 (85) 96 12/15/17 02:53 97 Trach Collar 5.00 28 12/15/17 00:00 98.4 68 18 116/57 (76) 96 12/14/17 22:36 97 Trach Collar 5.00 28 12/14/17 20:10 98.2 67 18 121/58 (79) 94 12/14/17 18:42 20 12/14/17 16:00 98.9 89 20 150/72 (98) 94 12/14/17 12:00 99.5 80 20 146/66 (92) 97 I/O 12/14/17 12/14/17 12/14/17 12/15/17 12/15/17 12/15/17 07:00 15:00 23:00 07:00 15:00 23:00 Intake Total 1140 ml 1340 ml 360 ml Output Total 500 ml 350 ml 900 ml Balance 640 ml 990 ml -540 ml Tube Feeding 540 ml 540 ml 360 ml Other 600 ml 800 ml Output Urine Total 500 ml 350 ml 900 ml # Voids 1 # Bowel Movements 1 4 1 Objective Remarks GENERAL: NAD SKIN: Warm and dry. HEAD: Normocephalic. EYES: No scleral icterus. No injection or drainage. NECK: Supple, trachea midline. No JVD or lymphadenopathy. CARDIOVASCULAR: Regular rate and rhythm without murmurs, gallops, or rubs. RESPIRATORY: Breath sounds equal bilaterally. No accessory muscle use. GASTROINTESTINAL: Abdomen soft, non-tender, nondistended. MUSCULOSKELETAL: No cyanosis, or edema. BACK: Nontender without obvious deformity. No CVA tenderness. Procedures PEG tube trach 05/15/17 and PEG 05/16/17 A/P Problem List: (1) Acute ischemic left middle cerebral artery (MCA) stroke ICD Code: I63.512 - Cerebral infarction due to unspecified occlusion or stenosis of left middle cerebral artery Status: Acute (2) Acute respiratory failure ICD Code: J96.00 - Acute respiratory failure, unspecified whether with hypoxia or hypercapnia (3) Right hemiplegia ICD Code: G81.91 - Hemiplegia, unspecified affecting right dominant side Status: Acute (4) Sacral decubitus ulcer ICD Code: L89.159 - Pressure ulcer of sacral region, unspecified stage Status: Chronic (5) HCAP (healthcare-associated pneumonia) ICD Code: J18.9 - Pneumonia, unspecified organism Status: Resolved (6) 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 daily. Urinary retention No leukocytosis Culture grew Aerococcus, finished Augmentin November 07 - November 14. Leavitt replaced Elevated D-dimer Ordered 10/31 due to increased FiO2 demand. Since D-dimer elevated, CTA chest obtained to r/o PE which was negative Likely elevated in light of chronic illness RUE U/S negative for DVT - Left MCA stroke 5.5 mm of [id number]-lb-[id number] subfalcine herniation, diagnosed 04/24. Was not a candidate for thrombolysis at that time. Increasing edema seen on repeat CT 04/28 with a reduction in midline shift on another repeat on 04/30 Neurologic condition remained poor and she underwent trach 05/15/17 and PEG Persistent right-sided hemiparesis. Previously seen by neurology, signed off Previously seen by neurosurgery, signed off Continue daily ASA Hypertension / CHF Controlled Continue Amlodipine, Doxazosin, Hydralazine, Clonidine, Diuretics. Echo 10/06/17 LVSF EF = 25-30%. On furosemide 20 mg daily Chronic Tracheostomy /Chronic respiratory failure 10/22/2017 Pulmonary toilet, trach care Duo nebs as needed Pulm following, continue Oxygen to keep oxygen saturation over 92%, Bronchodilator. Large left pneumothorax Resolved Chest tube placed 05/07, discontinued 05/12/17 Hepatitis C LFTs normalized Negative genotype/viral load Diabetes mellitus SSI Novolin R High-dose scale Levemir insulin 8u Q12 FEN PEG tube feeding with Glucerna 1.5 @ 45 cc/hr Loose Stools-resolved C-diff PCR negative Continue Questran, Lomotil. Anal Fissure continue wound care Fever-Resolved DVT prophylaxis Heparin Continue current treatment as of December 15, 2017 Problem Qualifiers (1) Acute respiratory failure: Qualified Codes: J96.00 - Acute respiratory failure, unspecified whether with hypoxia or hypercapnia (2) Sacral decubitus ulcer: Qualified Codes: L89.152 - Pressure ulcer of sacral region, stage 2 (3) Chronic respiratory failure: Qualified Codes: J96.11 - Chronic respiratory failure with hypoxia Benja Rey MD Dec 15, 2017 10:04
--- NOTE | 2017-12-15 20:39 | HHI.PR ---
Subjective Remarks No events overnight. Patient is on TP's with 40% FIO2. . Tolerating tube feeds. Tolerates TF No fever No new complaint Small amount of thick mucous Objective Vital Signs Vital Signs Date Time Temp Pulse Resp B/P (MAP) Pulse Ox O2 Delivery O2 Flow Rate FiO2 12/15/17 16:00 97.8 82 16 126/62 (83) 98 12/15/17 15:22 Trach Collar 28 12/15/17 12:00 97.8 66 20 122/75 (91) 99 12/15/17 08:00 98.6 78 20 115/78 (90) 98 12/15/17 07:00 98 Trach Collar 5.00 28 12/15/17 04:00 100.3 68 18 120/68 (85) 96 12/15/17 02:53 97 Trach Collar 5.00 28 12/15/17 00:00 98.4 68 18 116/57 (76) 96 12/14/17 22:36 97 Trach Collar 5.00 28 I/O 12/14/17 12/14/17 12/14/17 12/15/17 12/15/17 12/15/17 07:00 15:00 23:00 07:00 15:00 23:00 Intake Total 1140 ml 1340 ml 360 ml 1040 ml Output Total 500 ml 350 ml 900 ml 600 ml Balance 640 ml 990 ml -540 ml 440 ml Tube Feeding 540 ml 540 ml 360 ml 540 ml Other 600 ml 800 ml 500 ml Output Urine Total 500 ml 350 ml 900 ml 600 ml # Voids 1 # Bowel Movements 1 4 1 1 Objective Remarks GENERAL: Elderly female,NAD SKIN: Warm and dry. HEAD: Normocephalic. EYES: No scleral icterus. No injection or drainage. NECK: Supple, trachea midline. No JVD or lymphadenopathy. + trach CARDIOVASCULAR: Regular rate and rhythm without murmurs, gallops, or rubs. RESPIRATORY: Breath sounds equal bilaterally. No accessory muscle use. GASTROINTESTINAL: Abdomen soft, non-tender, nondistended. MUSCULOSKELETAL: No cyanosis, or edema. BACK: Nontender without obvious deformity. No CVA tenderness. A/P Assessment and Plan Chronic resp failure, ,S/P Trach CVA Pneumonia Calcified Granuloma LLL Pseudomonas Tracheobronchitis, PLAN: Continue with TP's, keep sats >92% Bronchodilators, Pulm toilet, trach care CT chest 11/01: No PE,adenopathy in the right paratracheal, subcarinal and hilar regions with numerous prominent lymph nodes seen. Cont TF- GI/DVT prophylaxis DW Rn at Stable from pulm standpoint Chris Rizo MD Dec 15, 2017 20:39
[2017-12-15] MEDS: oxyCODONE HCL ORAL CONC 5 MG/0.25 ML SYRINGE PO PRN (21:40)
[2017-12-16] VITALS (8 sets, daily range): BP systolic 104–153; BP diastolic 51–78; PULSE 68–82; RESP 16–20; TEMP 97–98.8; O2SAT 95–97
[2017-12-16] MEDS: INSULIN NovoLIN REGULAR SUPPLEMENTAL SCALE SQ SCH ×4 (00:03→16:57)
[2017-12-16] MEDS: INSULIN DETEMIR 100 UNITS/ML VIAL SQ SCH ×2 (00:04→12:00)
[2017-12-16] MEDS: hydrALAZINE HCL 10 MG TAB PEG SCH ×3 (05:21→20:39)
[2017-12-16] MEDS: FREE WATER PO SCH ×3 (05:21→16:57)
[2017-12-16] MEDS: HEPARIN SODIUM - SQ 10,000 UNITS/ML VIAL SQ SCH ×3 (05:21→20:42)
[2017-12-16] MEDS: ARTIFICIAL TEARS OPTH SOLN 15 ML BTL EACH EYE SCH ×3 (05:22→20:49)
[2017-12-16] MEDS: CALCIUM/VITAMIN D 250 MG/125 U TAB PEG SCH ×3 (09:00→14:52)
[2017-12-16] MEDS: POVIDONE IODINE 10% SOLN 480 ML BTL EXTERNAL SCH ×2 (09:00→20:49)
[2017-12-16] MEDS: LANSOPRAZOLE SOLUTAB 30 MG TAB NG SCH (09:06)
[2017-12-16] MEDS: ASPIRIN 325 MG TAB DOBHOFF SCH (09:06)
[2017-12-16] MEDS: LISINOPRIL 5 MG TAB PEG SCH (09:06)
[2017-12-16] MEDS: FUROSEMIDE 40 MG TAB PO SCH (09:06)
[2017-12-16] MEDS: LACTOBACILLUS ACIDOPHILUS TAB PEG SCH ×2 (09:06→20:39)
[2017-12-16] MEDS: CHOLECALCIFEROL (VIT D3) 5000 UNIT CAP PEG SCH (09:06)
--- NOTE | 2017-12-16 09:30 | HHI.PR ---
Subjective Remarks Patient seen and examined 3 loose stool bowel movements overnight Vitals stable this morning Objective Vitals Vital Signs Date Time Temp Pulse Resp B/P (MAP) Pulse Ox O2 Delivery O2 Flow Rate FiO2 12/16/17 04:00 98.6 77 16 133/60 (84) 97 12/16/17 00:00 97.2 82 18 153/78 (103) 96 12/15/17 21:00 97 Trach Collar 5.00 28 12/15/17 20:50 99 Trach Collar 5.00 12/15/17 20:00 98.0 79 18 123/70 (87) 99 12/15/17 16:00 97.8 82 16 126/62 (83) 98 12/15/17 15:22 Trach Collar 28 12/15/17 12:00 97.8 66 20 122/75 (91) 99 I/O 12/15/17 12/15/17 12/15/17 12/16/17 12/16/17 12/16/17 07:00 15:00 23:00 07:00 15:00 23:00 Intake Total 360 ml 1040 ml 1032 ml Output Total 900 ml 600.0 ml 550 ml Balance -540 ml 440.0 ml 482 ml Tube Feeding 360 ml 540 ml 532 ml Other 500 ml 500 ml Output Urine Total 900 ml 600 ml 550 ml Tube Feeding Residual Discard 0 ml # Bowel Movements 1 1 2 Imaging Last Impressions Chest X-Ray 12/02/17 0000 Signed Impressions: Service Date/Time: Saturday, December 02, 2017 19:12 - CONCLUSION: 1. Bilateral hazy air space disease overall improved from November 13. Cardiomegaly. Tracheostomy present. Jaime Velasquez MD Upper Extremity Ultrasound 11/04/17 0000 Signed Impressions: Service Date/Time: Saturday, November 04, 2017 09:57 - CONCLUSION: No thrombus observed. Subcutaneous edema noted. Deangelo Wren Jr., MD Abdomen X-Ray 11/04/17 0000 Signed Impressions: Service Date/Time: Saturday, November 04, 2017 11:58 - CONCLUSION: Gaseous distention of bowel loops could be ileus but unchanged. Benja Ramsey MD CT Angiography 11/01/17 0000 Signed Impressions: Service Date/Time: Wednesday, November 01, 2017 16:47 - CONCLUSION: No evidence for pulmonary embolism. Please see above. Choco Mustafa MD Thoracentesis 08/05/17 1535 Signed Impressions: Service Date/Time: Saturday, August 05, 2017 16:08 - CONCLUSION: Uncomplicated CT-guided thoracentesis. Sage Adler MD Chest Ultrasound 08/02/17 0000 Signed Impressions: Service Date/Time: Tuesday, August 01, 2017 22:06 - CONCLUSION: 1. Moderate right pleural effusion, as above. Alejo De La Vega MD Hip and Pelvis X-Ray 07/09/17 0000 Signed Impressions: Service Date/Time: Sunday, July 09, 2017 14:04 - CONCLUSION: Anatomic alignment. Ricardo Middleton MD FACR Liver Ultrasound 06/19/17 0000 Signed Impressions: Service Date/Time: June 13:20 - CONCLUSION: 1. Mildly increased echotexture of the liver characteristic of hepatic steatosis. 2. Gallbladder sludge. Obdulio Sam MD Head CT 05/15/17 0000 Signed Impressions: Service Date/Time: May 19:59 - CONCLUSION: 1. 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 2. No bleed or new/acute infarct. Obdulio Simms MD Gall Bladder Ultrasound 05/08/17 0000 Signed Impressions: Service Date/Time: May 08:23 - CONCLUSION: Focally unremarkable appearance of the gallbladder Obdulio Chun MD Abdomen/Pelvis CT 05/07/17 0000 Signed Impressions: Service Date/Time: Sunday, May 07, 2017 13:23 - CONCLUSION: 1. Large left pneumothorax. 2. Bilateral lower lobe consolidation and bilateral moderate size pleural effusions. 3. Significant soft tissue thickening of the right lateral chest wall and left gluteus muscle. 4. Mild ascites. The findings were called to Dr. Carney. Deangelo Zamora MD Chest CT 04/30/17 0000 Signed Impressions: Service Date/Time: Sunday, April 30, 2017 09:20 - CONCLUSION: 1. Bilateral pulmonary infiltrates more pronounced within the lower lobes with tiny bilateral pleural effusions. Material seen filling the lower lobe bronchi bilaterally either related to purulent material or perhaps mucus plugging. Deangelo Wren Jr., MD Carotid Artery Ultrasound 04/24/17 0000 Signed Impressions: Service Date/Time: April 09:45 - CONCLUSION: 1. No hemodynamically significant carotid artery stenosis. Arnie Middleton MD Hip X-Ray 04/21/17 0000 Signed Impressions: Service Date/Time: Friday, April 21, 2017 11:36 - CONCLUSION: Fluoroscopic images during placement of intramedullary siomara left femur. Benja Ramsey MD Objective Remarks GENERAL: NAD SKIN: Warm and dry. HEAD: Normocephalic. EYES: No scleral icterus. No injection or drainage. NECK: Supple, trachea midline. No JVD or lymphadenopathy. CARDIOVASCULAR: Regular rate and rhythm without murmurs, gallops, or rubs. RESPIRATORY: Breath sounds equal bilaterally. No accessory muscle use. GASTROINTESTINAL: Abdomen soft, non-tender, nondistended. MUSCULOSKELETAL: No cyanosis, or edema. BACK: Nontender without obvious deformity. No CVA tenderness. Procedures PEG tube trach 05/15/17 and PEG 05/16/17 A/P Problem List: (1) Acute ischemic left middle cerebral artery (MCA) stroke ICD Code: I63.512 - Cerebral infarction due to unspecified occlusion or stenosis of left middle cerebral artery Status: Acute (2) Acute respiratory failure ICD Code: J96.00 - Acute respiratory failure, unspecified whether with hypoxia or hypercapnia (3) Right hemiplegia ICD Code: G81.91 - Hemiplegia, unspecified affecting right dominant side Status: Acute (4) Sacral decubitus ulcer ICD Code: L89.159 - Pressure ulcer of sacral region, unspecified stage Status: Chronic (5) HCAP (healthcare-associated pneumonia) ICD Code: J18.9 - Pneumonia, unspecified organism Status: Resolved (6) 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 daily. Urinary retention No leukocytosis Culture grew Aerococcus, finished Augmentin November 07 - November 14. Leavitt replaced Elevated D-dimer Ordered 10/31 due to increased FiO2 demand. Since D-dimer elevated, CTA chest obtained to r/o PE which was negative Likely elevated in light of chronic illness RUE U/S negative for DVT - Left MCA stroke 5.5 mm of dilb-vt-mdmcl subfalcine herniation, diagnosed 04/24. Was not a candidate for thrombolysis at that time. Increasing edema seen on repeat CT 04/28 with a reduction in midline shift on another repeat on 04/30 Neurologic condition remained poor and she underwent trach 05/15/17 and PEG Persistent right-sided hemiparesis. Previously seen by neurology, signed off Previously seen by neurosurgery, signed off Continue daily ASA Hypertension / CHF Controlled Continue Amlodipine, Doxazosin, Hydralazine, Clonidine, Diuretics. Echo 10/06/17 LVSF EF = 25-30%. On furosemide 20 mg daily Chronic Tracheostomy /Chronic respiratory failure 10/22/2017 Pulmonary toilet, trach care Duo nebs as needed Pulm following, continue Oxygen to keep oxygen saturation over 92%, Bronchodilator. Large left pneumothorax Resolved Chest tube placed 05/07, discontinued 05/12/17 Hepatitis C LFTs normalized Negative genotype/viral load Diabetes mellitus SSI Novolin R High-dose scale Levemir insulin 8u Q12 FEN PEG tube feeding with Glucerna 1.5 @ 45 cc/hr, decreased tube feed if patient will continue loose stool today Loose Stools- C-diff PCR negative Continue Questran, Lomotil. Anal Fissure continue wound care Fever-Resolved DVT prophylaxis Heparin Continue current treatment as of December 16, 2017 Problem Qualifiers (1) Acute respiratory failure: Qualified Codes: J96.00 - Acute respiratory failure, unspecified whether with hypoxia or hypercapnia (2) Sacral decubitus ulcer: Qualified Codes: L89.152 - Pressure ulcer of sacral region, stage 2 (3) Chronic respiratory failure: Qualified Codes: J96.11 - Chronic respiratory failure with hypoxia Benja Rey MD Dec 16, 2017 09:30
--- NOTE | 2017-12-16 19:37 | HHI.PR ---
Subjective Remarks No events overnight. Patient is on TP's with 40% FIO2. . Tolerating tube feeds. Tolerates TF No fever No new complaint Small amount of thick mucous Trach downsized to #6 Objective Vital Signs Vital Signs Date Time Temp Pulse Resp B/P (MAP) Pulse Ox O2 Delivery O2 Flow Rate FiO2 12/16/17 16:00 97.7 76 18 104/52 (69) 95 12/16/17 12:00 97.0 69 20 110/59 (76) 97 12/16/17 10:45 97 Trach Collar 5.00 28 12/16/17 08:00 97.6 81 18 116/53 (74) 95 12/16/17 07:00 94 Trach Collar 5.00 28 12/16/17 04:00 98.6 77 16 133/60 (84) 97 12/16/17 00:00 97.2 82 18 153/78 (103) 96 12/15/17 21:00 97 Trach Collar 5.00 28 12/15/17 20:50 99 Trach Collar 5.00 12/15/17 20:00 98.0 79 18 123/70 (87) 99 I/O 12/15/17 12/15/17 12/15/17 12/16/17 12/16/17 12/16/17 07:00 15:00 23:00 07:00 15:00 23:00 Intake Total 360 ml 1040 ml 1032 ml 1040 ml Output Total 900 ml 600.0 ml 550 ml 0 ml 250 ml Balance -540 ml 440.0 ml 482 ml 0 ml 790 ml Tube Feeding 360 ml 540 ml 532 ml 540 ml Other 500 ml 500 ml 500 ml Output Urine Total 900 ml 600 ml 550 ml 250 ml Tube Feeding Residual Discard 0 ml 0 ml # Voids 2 # Bowel Movements 1 1 2 2 Objective Remarks GENERAL: Elderly female,NAD SKIN: Warm and dry. HEAD: Normocephalic. EYES: No scleral icterus. No injection or drainage. NECK: Supple, trachea midline. No JVD or lymphadenopathy. + trach CARDIOVASCULAR: Regular rate and rhythm without murmurs, gallops, or rubs. RESPIRATORY: Breath sounds equal bilaterally. No accessory muscle use. GASTROINTESTINAL: Abdomen soft, non-tender, nondistended. MUSCULOSKELETAL: No cyanosis, or edema. BACK: Nontender without obvious deformity. No CVA tenderness. A/P Assessment and Plan Chronic resp failure, ,S/P Trach CVA Pneumonia Calcified Granuloma LLL Pseudomonas Tracheobronchitis, PLAN: Continue with TP's, keep sats >92% Bronchodilators, Pulm toilet, trach care CT chest 11/01: No PE,adenopathy in the right paratracheal, subcarinal and hilar regions with numerous prominent lymph nodes seen. Cont TF- GI/DVT prophylaxis DW RN at BS Stable from pulm standpoint Chris Rizo MD Dec 16, 2017 19:37
[2017-12-16] MEDS: DIPHENOXYLATE/ATROPINE 2.5 MG/0.025 MG/5 ML CUP PO PRN (22:56)
[2017-12-17] VITALS (7 sets, daily range): BP systolic 116–128; BP diastolic 64–78; PULSE 16–82; RESP 16–18; TEMP 97.8–99.8; O2SAT 96–98
[2017-12-17] MEDS: INSULIN DETEMIR 100 UNITS/ML VIAL SQ SCH ×2 (01:06→12:10)
[2017-12-17] MEDS: INSULIN NovoLIN REGULAR SUPPLEMENTAL SCALE SQ SCH ×4 (01:17→17:33)
[2017-12-17] MEDS: hydrALAZINE HCL 10 MG TAB PEG SCH ×3 (05:54→19:39)
[2017-12-17] MEDS: HEPARIN SODIUM - SQ 10,000 UNITS/ML VIAL SQ SCH ×3 (05:54→19:39)
[2017-12-17] MEDS: FREE WATER PO SCH ×4 (05:55→17:04)
[2017-12-17] MEDS: ARTIFICIAL TEARS OPTH SOLN 15 ML BTL EACH EYE SCH ×3 (06:03→19:40)
[2017-12-17] MEDS: CALCIUM/VITAMIN D 250 MG/125 U TAB PEG SCH ×3 (08:33→17:04)
[2017-12-17] MEDS: ASPIRIN 325 MG TAB DOBHOFF SCH (08:34)
[2017-12-17] MEDS: LACTOBACILLUS ACIDOPHILUS TAB PEG SCH ×2 (08:34→19:38)
[2017-12-17] MEDS: FUROSEMIDE 40 MG TAB PO SCH (08:34)
[2017-12-17] MEDS: LISINOPRIL 5 MG TAB PEG SCH (08:34)
[2017-12-17] MEDS: LANSOPRAZOLE SOLUTAB 30 MG TAB NG SCH (08:34)
--- NOTE | 2017-12-17 08:57 | HHI.PR ---
Subjective Remarks Patient seen and examined Still with some loose stool however stable Respiratory status stable Objective Vitals Vital Signs Date Time Temp Pulse Resp B/P (MAP) Pulse Ox O2 Delivery O2 Flow Rate FiO2 12/17/17 08:55 97 Trach Collar 28 12/17/17 04:00 99.0 82 18 128/65 (86) 97 12/17/17 00:00 97.8 72 18 116/65 (82) 98 12/16/17 20:44 97 Trach Collar 28 12/16/17 20:00 Trach Collar 40 12/16/17 20:00 98.8 68 20 116/51 (72) 95 12/16/17 16:00 97.7 76 18 104/52 (69) 95 12/16/17 12:00 97.0 69 20 110/59 (76) 97 12/16/17 10:45 97 Trach Collar 5.00 28 I/O 12/16/17 12/16/17 12/16/17 12/17/17 12/17/17 12/17/17 07:00 15:00 23:00 07:00 15:00 23:00 Intake Total 1032 ml 1040 ml 1090 ml Output Total 550 ml 0 ml 250 ml 600 ml Balance 482 ml 0 ml 790 ml 490 ml Tube Feeding 532 ml 540 ml 540 ml Tube Irrigant 50 ml Other 500 ml 500 ml 500 ml Output Urine Total 550 ml 250 ml 600 ml Tube Feeding Residual Discard 0 ml # Voids 2 # Bowel Movements 2 2 1 Objective Remarks GENERAL: NAD SKIN: Warm and dry. HEAD: Normocephalic. EYES: No scleral icterus. No injection or drainage. NECK: Supple, trachea midline. No JVD or lymphadenopathy. CARDIOVASCULAR: Regular rate and rhythm without murmurs, gallops, or rubs. RESPIRATORY: Breath sounds equal bilaterally. No accessory muscle use. GASTROINTESTINAL: Abdomen soft, non-tender, nondistended. MUSCULOSKELETAL: No cyanosis, or edema. BACK: Nontender without obvious deformity. No CVA tenderness. Procedures PEG tube trach 05/15/17 and PEG 05/16/17 A/P Problem List: (1) Acute ischemic left middle cerebral artery (MCA) stroke ICD Code: I63.512 - Cerebral infarction due to unspecified occlusion or stenosis of left middle cerebral artery Status: Acute (2) Acute respiratory failure ICD Code: J96.00 - Acute respiratory failure, unspecified whether with hypoxia or hypercapnia (3) Right hemiplegia ICD Code: G81.91 - Hemiplegia, unspecified affecting right dominant side Status: Acute (4) Sacral decubitus ulcer ICD Code: L89.159 - Pressure ulcer of sacral region, unspecified stage Status: Chronic (5) HCAP (healthcare-associated pneumonia) ICD Code: J18.9 - Pneumonia, unspecified organism Status: Resolved (6) 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 daily. Urinary retention No leukocytosis Culture grew Aerococcus, finished Augmentin November 07 - November 14. Leavitt replaced Elevated D-dimer Ordered 10/31 due to increased FiO2 demand. Since D-dimer elevated, CTA chest obtained to r/o PE which was negative Likely elevated in light of chronic illness RUE U/S negative for DVT - Left MCA stroke 5.5 mm of ansx-bv-uhggh subfalcine herniation, diagnosed 04/24. Was not a candidate for thrombolysis at that time. Increasing edema seen on repeat CT 04/28 with a reduction in midline shift on another repeat on 04/30 Neurologic condition remained poor and she underwent trach 05/15/17 and PEG Persistent right-sided hemiparesis. Previously seen by neurology, signed off Previously seen by neurosurgery, signed off Continue daily ASA Hypertension / CHF Controlled Continue Amlodipine, Doxazosin, Hydralazine, Clonidine, Diuretics. Echo 10/06/17 LVSF EF = 25-30%. On furosemide 20 mg daily Chronic Tracheostomy /Chronic respiratory failure 10/22/2017 Pulmonary toilet, trach care Duo nebs as needed Pulm following, continue Oxygen to keep oxygen saturation over 92%, Bronchodilator. Large left pneumothorax Resolved Chest tube placed 05/07, discontinued 05/12/17 Hepatitis C LFTs normalized Negative genotype/viral load Diabetes mellitus SSI Novolin R High-dose scale Levemir insulin 8u Q12 FEN PEG tube feeding with Glucerna 1.5 @ 45 cc/hr, decreased tube feed if patient will continue loose stool today Loose Stools- C-diff PCR negative Continue Questran, Lomotil. Anal Fissure continue wound care Fever-Resolved DVT prophylaxis Heparin Continue current treatment as of December 17, 2017 Problem Qualifiers (1) Acute respiratory failure: Qualified Codes: J96.00 - Acute respiratory failure, unspecified whether with hypoxia or hypercapnia (2) Sacral decubitus ulcer: Qualified Codes: L89.152 - Pressure ulcer of sacral region, stage 2 (3) Chronic respiratory failure: Qualified Codes: J96.11 - Chronic respiratory failure with hypoxia Benja Rey MD Dec 17, 2017 08:57
[2017-12-17] MEDS: POVIDONE IODINE 10% SOLN 480 ML BTL EXTERNAL SCH ×2 (09:00→19:38)
[2017-12-17] MEDS: CHOLECALCIFEROL (VIT D3) 5000 UNIT CAP PEG SCH (09:00)
--- NOTE | 2017-12-17 19:38 | HHI.PR ---
Subjective Remarks No events overnight. Patient is on TP's with 40% FIO2. . Tolerating tube feeds. Tolerates TF No fever Small amount of thick mucous Trach downsized to #6 Tolerates well. Objective Vital Signs Vital Signs Date Time Temp Pulse Resp B/P (MAP) Pulse Ox O2 Delivery O2 Flow Rate FiO2 12/17/17 16:00 98.2 16 16 116/64 (81) 97 12/17/17 12:00 98.2 56 16 126/68 (87) 98 12/17/17 08:55 97 Trach Collar 28 12/17/17 08:00 99.8 80 16 127/78 (94) 97 12/17/17 07:00 98 Trach Collar 5.00 28 12/17/17 04:00 99.0 82 18 128/65 (86) 97 12/17/17 00:00 97.8 72 18 116/65 (82) 98 12/16/17 20:44 97 Trach Collar 28 12/16/17 20:00 Trach Collar 40 12/16/17 20:00 98.8 68 20 116/51 (72) 95 I/O 12/16/17 12/16/17 12/16/17 12/17/17 12/17/17 12/17/17 07:00 15:00 23:00 07:00 15:00 23:00 Intake Total 1032 ml 1040 ml 1090 ml 1040 ml Output Total 550 ml 0 ml 250 ml 600 ml 600 ml Balance 482 ml 0 ml 790 ml 490 ml 440 ml Tube Feeding 532 ml 540 ml 540 ml 540 ml Tube Irrigant 50 ml Other 500 ml 500 ml 500 ml 500 ml Output Urine Total 550 ml 250 ml 600 ml 600 ml Tube Feeding Residual Discard 0 ml # Voids 2 # Bowel Movements 2 2 1 Objective Remarks GENERAL: Elderly female,NAD SKIN: Warm and dry. HEAD: Normocephalic. EYES: No scleral icterus. No injection or drainage. NECK: Supple, trachea midline. No JVD or lymphadenopathy. + trach CARDIOVASCULAR: Regular rate and rhythm without murmurs, gallops, or rubs. RESPIRATORY: Breath sounds equal bilaterally. No accessory muscle use. GASTROINTESTINAL: Abdomen soft, non-tender, nondistended. MUSCULOSKELETAL: No cyanosis, or edema. BACK: Nontender without obvious deformity. No CVA tenderness. A/P Assessment and Plan Chronic resp failure, ,S/P Trach CVA Pneumonia Calcified Granuloma LLL Pseudomonas Tracheobronchitis, PLAN: Continue with TP's, keep sats >92% Bronchodilators, Pulm toilet, trach care CT chest 11/01: No PE,adenopathy in the right paratracheal, subcarinal and hilar regions with numerous prominent lymph nodes seen. Cont TF- GI/DVT prophylaxis Stable from pulm standpoint. LA[facility] RN at [facility],Chris Hester MD Dec 17, 2017 19:38
[2017-12-18] VITALS (9 sets, daily range): BP systolic 111–141; BP diastolic 58–70; PULSE 64–90; RESP 14–20; TEMP 98.2–99.1; O2SAT 94–99
[2017-12-18] MEDS: INSULIN DETEMIR 100 UNITS/ML VIAL SQ SCH ×3 (00:58→23:57)
[2017-12-18] MEDS: INSULIN NovoLIN REGULAR SUPPLEMENTAL SCALE SQ SCH ×5 (00:59→23:59)
[2017-12-18] MEDS: HEPARIN SODIUM - SQ 10,000 UNITS/ML VIAL SQ SCH ×3 (05:40→21:04)
[2017-12-18] MEDS: FREE WATER PO SCH ×5 (05:40→23:57)
[2017-12-18] MEDS: hydrALAZINE HCL 10 MG TAB PEG SCH ×3 (05:40→21:04)
[2017-12-18] MEDS: ARTIFICIAL TEARS OPTH SOLN 15 ML BTL EACH EYE SCH ×3 (05:42→20:28)
[2017-12-18] MEDS: LACTOBACILLUS ACIDOPHILUS TAB PEG SCH ×2 (08:55→20:24)
[2017-12-18] MEDS: FUROSEMIDE 40 MG TAB PO SCH (08:55)
[2017-12-18] MEDS: ASPIRIN 325 MG TAB DOBHOFF SCH (08:56)
[2017-12-18] MEDS: LISINOPRIL 5 MG TAB PEG SCH (08:56)
[2017-12-18] MEDS: CALCIUM/VITAMIN D 250 MG/125 U TAB PEG SCH ×3 (08:56→16:48)
[2017-12-18] MEDS: CHOLESTYRAMINE LIGHT 4 GM PACKAGE PEG PRN (08:56)
[2017-12-18] MEDS: DIPHENOXYLATE/ATROPINE 2.5 MG/0.025 MG/5 ML CUP PO PRN (08:57)
[2017-12-18] MEDS: POVIDONE IODINE 10% SOLN 480 ML BTL EXTERNAL SCH ×2 (08:57→21:00)
[2017-12-18] MEDS: oxyCODONE HCL ORAL CONC 5 MG/0.25 ML SYRINGE PO PRN (08:57)
[2017-12-18] MEDS: CHOLECALCIFEROL (VIT D3) 5000 UNIT CAP PEG SCH (08:58)
[2017-12-18] MEDS: LANSOPRAZOLE SOLUTAB 30 MG TAB NG SCH (08:58)
--- NOTE | 2017-12-18 14:32 | HHI.PR ---
Subjective Remarks Discussed with RN No overnight events, had one loose stool today. No changes. Objective Vitals Vital Signs Date Time Temp Pulse Resp B/P (MAP) Pulse Ox O2 Delivery O2 Flow Rate FiO2 12/18/17 12:26 98.6 72 16 121/70 (87) 99 12/18/17 09:08 98 Trach Collar 5.00 28 12/18/17 08:23 97 Trach Collar 5.00 28 T-Piece Humidified 12/18/17 08:00 99.1 90 14 126/66 (86) 99 12/18/17 05:07 98 Trach Collar 6.00 28 12/18/17 04:00 98.5 86 18 141/69 (93) 98 12/18/17 00:00 98.5 76 18 123/58 (79) 96 12/17/17 20:00 96 Trach Collar 5.00 28 12/17/17 19:36 98.4 74 16 126/69 (88) 96 12/17/17 16:00 98.2 16 16 116/64 (81) 97 I/O 12/17/17 12/17/17 12/17/17 12/18/17 12/18/17 12/18/17 06:59 14:59 22:59 06:59 14:59 22:59 Intake Total 1090 ml 1040 ml 1100 ml Output Total 600 ml 600 ml 600 ml Balance 490 ml 440 ml 500 ml Tube Feeding 540 ml 540 ml 600 ml Tube Irrigant 50 ml Other 500 ml 500 ml 500 ml Output Urine Total 600 ml 600 ml 600 ml # Bowel Movements 1 3 Objective Remarks Not in distress, chronically ill, trach dependent It was equal reactive to light Regular rate and rhythm Bronchial breath sounds, no crackles, no wheezing. Abdomen soft, nontender, Mild hand and lower extremity edema Awake, not alert, does not appear to be oriented. 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 Procedures PEG tube trach 05/15/17 and PEG 05/16/17 A/P Problem List: (1) Acute ischemic left middle cerebral artery (MCA) stroke ICD Code: I63.512 - Cerebral infarction due to unspecified occlusion or stenosis of left middle cerebral artery Status: Acute (2) Acute respiratory failure ICD Code: J96.00 - Acute respiratory failure, unspecified whether with hypoxia or hypercapnia (3) Right hemiplegia ICD Code: G81.91 - Hemiplegia, unspecified affecting right dominant side Status: Acute (4) Sacral decubitus ulcer ICD Code: L89.159 - Pressure ulcer of sacral region, unspecified stage Status: Chronic (5) HCAP (healthcare-associated pneumonia) ICD Code: J18.9 - Pneumonia, unspecified organism Status: Resolved (6) 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 daily. Urinary retention No leukocytosis Culture grew Aerococcus, finished Augmentin November 07 - November 14. Leavitt replaced Elevated D-dimer Ordered 10/31 due to increased FiO2 demand. Since D-dimer elevated, CTA chest obtained to r/o PE which was negative Likely elevated in light of chronic illness RUE U/S negative for DVT - Left MCA stroke 5.5 mm of [id number] subfalcine herniation, diagnosed 04/24. Was not a candidate for thrombolysis at that time. Increasing edema seen on repeat CT 04/28 with a reduction in midline shift on another repeat on 04/30 Neurologic condition remained poor and she underwent trach 05/15/17 and PEG Persistent right-sided hemiparesis. Previously seen by neurology, signed off Previously seen by neurosurgery, signed off Continue daily ASA Hypertension / CHF Controlled Continue Amlodipine, Doxazosin, Hydralazine, Clonidine, Diuretics. Echo 10/06/17 LVSF EF = 25-30%. On furosemide 20 mg daily Chronic Tracheostomy /Chronic respiratory failure 10/22/2017 Pulmonary toilet, trach care Duo nebs as needed Pulm following, continue Oxygen to keep oxygen saturation over 92%, Bronchodilator. Large left pneumothorax Resolved Chest tube placed 05/07, discontinued 05/12/17 Hepatitis C LFTs normalized Negative genotype/viral load Diabetes mellitus SSI Novolin R High-dose scale Levemir insulin 8u Q12 FEN PEG tube feeding with Glucerna 1.5 @ 45 cc/hr, decreased tube feed if patient will continue loose stool today Loose Stools- C-diff PCR negative Continue Questran Lomotil. Anal Fissure continue wound care Fever-Resolved DVT prophylaxis Heparin No change in management. Seen today December 18, 2017 Discharge Planning Aggressive therapy, full code per palliative. Needs placement Problem Qualifiers (1) Acute respiratory failure: Qualified Codes: J96.00 - Acute respiratory failure, unspecified whether with hypoxia or hypercapnia (2) Sacral decubitus ulcer: Qualified Codes: L89.152 - Pressure ulcer of sacral region, stage 2 (3) Chronic respiratory failure: Qualified Codes: J96.11 - Chronic respiratory failure with hypoxia Roderick Turcios MD Dec 18, 2017 14:32
--- NOTE | 2017-12-18 16:01 | HHI.PR ---
Subjective Remarks No events overnight. Patient is on TP's with 40% FIO2. . Tolerating tube feeds. Tolerates TF No fever Small amount of thick mucous Trach downsized to #6 Tolerates well. No new complaint Objective Vital Signs Vital Signs Date Time Temp Pulse Resp B/P (MAP) Pulse Ox O2 Delivery O2 Flow Rate FiO2 12/18/17 12:26 98.6 72 16 121/70 (87) 99 12/18/17 09:08 98 Trach Collar 5.00 28 12/18/17 08:23 97 Trach Collar 5.00 28 T-Piece Humidified 12/18/17 08:00 99.1 90 14 126/66 (86) 99 12/18/17 05:07 98 Trach Collar 6.00 28 12/18/17 04:00 98.5 86 18 141/69 (93) 98 12/18/17 00:00 98.5 76 18 123/58 (79) 96 12/17/17 20:00 96 Trach Collar 5.00 28 12/17/17 19:36 98.4 74 16 126/69 (88) 96 I/O 12/17/17 12/17/17 12/17/17 12/18/17 12/18/17 12/18/17 07:00 15:00 23:00 07:00 15:00 23:00 Intake Total 1090 ml 1040 ml 1100 ml Output Total 600 ml 600 ml 600 ml Balance 490 ml 440 ml 500 ml Tube Feeding 540 ml 540 ml 600 ml Tube Irrigant 50 ml Other 500 ml 500 ml 500 ml Output Urine Total 600 ml 600 ml 600 ml # Bowel Movements 1 3 Objective Remarks GENERAL: Elderly female,NAD SKIN: Warm and dry. HEAD: Normocephalic. EYES: No scleral icterus. No injection or drainage. NECK: Supple, trachea midline. No JVD or lymphadenopathy. + trach CARDIOVASCULAR: Regular rate and rhythm without murmurs, gallops, or rubs. RESPIRATORY: Breath sounds equal bilaterally. No accessory muscle use. GASTROINTESTINAL: Abdomen soft, non-tender, nondistended. MUSCULOSKELETAL: No cyanosis, or edema. BACK: Nontender without obvious deformity. No CVA tenderness. A/P Assessment and Plan Chronic resp failure, ,S/P Trach CVA Pneumonia Calcified Granuloma LLL Pseudomonas Tracheobronchitis, PLAN: Continue with TP's, keep sats >92% Bronchodilators, Pulm toilet, trach care CT chest 11/01: No PE,adenopathy in the right paratracheal, subcarinal and hilar regions with numerous prominent lymph nodes seen. Cont TF- GI/DVT prophylaxis Stable from pulm standpoint. [facility] RN at [facility],Chris Hester MD Dec 18, 2017 16:01
[2017-12-19] VITALS (8 sets, daily range): BP systolic 96–152; BP diastolic 43–65; PULSE 41–88; RESP 18–20; TEMP 97.6–98.9; O2SAT 98–99
[2017-12-19] MEDS: FREE WATER PO SCH ×4 (05:33→23:50)
[2017-12-19] MEDS: HEPARIN SODIUM - SQ 10,000 UNITS/ML VIAL SQ SCH ×3 (05:33→21:09)
[2017-12-19] MEDS: DIPHENOXYLATE/ATROPINE 2.5 MG/0.025 MG/5 ML CUP PO PRN ×3 (05:34→23:50)
[2017-12-19] MEDS: ARTIFICIAL TEARS OPTH SOLN 15 ML BTL EACH EYE SCH ×2 (05:34→16:09)
[2017-12-19] MEDS: oxyCODONE HCL ORAL CONC 5 MG/0.25 ML SYRINGE PO PRN ×2 (05:34→17:02)
[2017-12-19] MEDS: hydrALAZINE HCL 10 MG TAB PEG SCH ×3 (05:34→21:09)
[2017-12-19] MEDS: INSULIN NovoLIN REGULAR SUPPLEMENTAL SCALE SQ SCH ×4 (06:30→23:50)
[2017-12-19] MEDS: LANSOPRAZOLE SOLUTAB 30 MG TAB NG SCH (09:47)
[2017-12-19] MEDS: CHOLECALCIFEROL (VIT D3) 5000 UNIT CAP PEG SCH (09:47)
[2017-12-19] MEDS: CHOLESTYRAMINE LIGHT 4 GM PACKAGE PEG PRN (09:47)
[2017-12-19] MEDS: CALCIUM/VITAMIN D 250 MG/125 U TAB PEG SCH ×3 (09:47→17:02)
[2017-12-19] MEDS: LISINOPRIL 5 MG TAB PEG SCH (09:47)
[2017-12-19] MEDS: ASPIRIN 325 MG TAB DOBHOFF SCH (09:47)
[2017-12-19] MEDS: LACTOBACILLUS ACIDOPHILUS TAB PEG SCH ×2 (09:47→20:34)
[2017-12-19] MEDS: FUROSEMIDE 40 MG TAB PO SCH (09:48)
--- NOTE | 2017-12-19 10:03 | HHI.PR ---
Subjective Remarks No events reported by nursing. Objective Vitals Vital Signs Date Time Temp Pulse Resp B/P (MAP) Pulse Ox O2 Delivery O2 Flow Rate FiO2 12/19/17 08:52 98 Trach Collar 6.00 28 12/19/17 06:30 20 12/19/17 03:18 98.0 75 20 152/56 (88) 99 12/19/17 00:00 98.5 71 20 129/65 (86) 98 12/18/17 21:23 94 Trach Collar 6.00 28 12/18/17 20:00 Trach Collar 5.00 28 12/18/17 19:11 98.2 71 20 118/63 (81) 95 12/18/17 19:11 95 Trach Collar 5.00 28 12/18/17 18:00 98.3 64 15 111/64 (80) 96 12/18/17 12:26 98.6 72 16 121/70 (87) 99 I/O 12/18/17 12/18/17 12/18/17 12/19/17 12/19/17 12/19/17 07:00 15:00 23:00 07:00 15:00 23:00 Intake Total 1100 ml 969 ml 1140 ml Output Total 600 ml 300.0 ml 400 ml Balance 500 ml 669.0 ml 740 ml Tube Feeding 600 ml 469 ml 540 ml Other 500 ml 500 ml 600 ml Output Urine Total 600 ml 300 ml 400 ml Tube Feeding Residual Discard 0 ml # Bowel Movements 3 1 4 Imaging Last Impressions Chest X-Ray 12/02/17 Signed Impressions: Service Date/Time: Saturday, December 02, 2017 19:12 - CONCLUSION: 1. Bilateral hazy air space disease overall improved from November 13. Cardiomegaly. Tracheostomy present. Jaime Velasquez MD Upper Extremity Ultrasound 11/04/17 0000 Signed Impressions: Service Date/Time: Saturday, November 04, 2017 09:57 - CONCLUSION: No thrombus observed. Subcutaneous edema noted. Deangelo Wren Jr., MD Abdomen X-Ray 11/04/17 Signed Impressions: Service Date/Time: Saturday, November 04, 2017 11:58 - CONCLUSION: Gaseous distention of bowel loops could be ileus but unchanged. Benja Ramsey MD CT Angiography 11/01/17 Signed Impressions: Service Date/Time: Wednesday, November 01, 2017 16:47 - CONCLUSION: No evidence for pulmonary embolism. Please see above. Choco Mustafa MD Thoracentesis 08/05/17 1535 Signed Impressions: Service Date/Time: Saturday, August 05, 2017 16:08 - CONCLUSION: Uncomplicated CT-guided thoracentesis. Sage Adler MD Chest Ultrasound 08/02/17 0000 Signed Impressions: Service Date/Time: Tuesday, August 01, 2017 22:06 - CONCLUSION: 1. Moderate right pleural effusion, as above. Alejo De La Vega MD Hip and Pelvis X-Ray 07/09/17 0000 Signed Impressions: Service Date/Time: Sunday, July 09, 2017 14:04 - CONCLUSION: Anatomic alignment. Ricardo Middleton MD FACR Liver Ultrasound 06/19/17 0000 Signed Impressions: Service Date/Time: June 13:20 - CONCLUSION: 1. Mildly increased echotexture of the liver characteristic of hepatic steatosis. 2. Gallbladder sludge. Obdulio Sam MD Head CT 05/15/17 0000 Signed Impressions: Service Date/Time: May 19:59 - CONCLUSION: 1. 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 2. No bleed or new/acute infarct. Obdulio Simms MD Gall Bladder Ultrasound 05/08/17 0000 Signed Impressions: Service Date/Time: May 08:23 - CONCLUSION: Focally unremarkable appearance of the gallbladder Obdulio Chun MD Abdomen/Pelvis CT 05/07/17 0000 Signed Impressions: Service Date/Time: Sunday, May 07, 2017 13:23 - CONCLUSION: 1. Large left pneumothorax. 2. Bilateral lower lobe consolidation and bilateral moderate size pleural effusions. 3. Significant soft tissue thickening of the right lateral chest wall and left gluteus muscle. 4. Mild ascites. The findings were called to Dr. Carney. Deangelo Zamora MD Chest CT 04/30/17 0000 Signed Impressions: Service Date/Time: Sunday, April 30, 2017 09:20 - CONCLUSION: 1. Bilateral pulmonary infiltrates more pronounced within the lower lobes with tiny bilateral pleural effusions. Material seen filling the lower lobe bronchi bilaterally either related to purulent material or perhaps mucus plugging. Deangelo Wren Jr., MD Carotid Artery Ultrasound 04/24/17 0000 Signed Impressions: Service Date/Time: April 09:45 - CONCLUSION: 1. No hemodynamically significant carotid artery stenosis. Arnie Middleton MD Hip X-Ray 04/21/17 0000 Signed Impressions: Service Date/Time: Friday, April 21, 2017 11:36 - CONCLUSION: Fluoroscopic images during placement of intramedullary siomara left femur. Benja Ramsey MD Objective Remarks General: Elderly female in no acute distress. Left wrist in soft restraint. Heart: Regular rate and rhythm. No murmur. Lungs: Clear to auscultation bilaterally. No wheezes, rales, or rhonchi. Breathing is nonlabored. Abdomen: Soft, nontender, nondistended. Extremities: No lower extremity edema. Psych: Does not respond to verbal stimuli. Procedures PEG tube trach 05/15/17 and PEG 05/16/17 Urinary Catheter: No Vascular Central Line Catheter: No A/P Problem List: (1) Acute ischemic left middle cerebral artery (MCA) stroke ICD Code: I63.512 - Cerebral infarction due to unspecified occlusion or stenosis of left middle cerebral artery Status: Acute (2) Acute respiratory failure ICD Code: J96.00 - Acute respiratory failure, unspecified whether with hypoxia or hypercapnia (3) Right hemiplegia ICD Code: G81.91 - Hemiplegia, unspecified affecting right dominant side Status: Acute (4) Sacral decubitus ulcer ICD Code: L89.159 - Pressure ulcer of sacral region, unspecified stage Status: Chronic (5) HCAP (healthcare-associated pneumonia) ICD Code: J18.9 - Pneumonia, unspecified organism Status: Resolved (6) 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 ICD Code: A49.8 - Other bacterial infections of unspecified site; Z16.24 - Resistance to multiple antibiotics Status: Acute (7) CVA (cerebral vascular accident) ICD Code: I63.9 - Cerebral infarction, unspecified Status: Chronic (8) Chronic respiratory failure ICD Code: J96.10 - Chronic respiratory failure, unspecified whether with hypoxia or hypercapnia Status: Chronic Assessment and Plan 1. Respiratory failure, chronic tracheostomy: Continue pulmonary toilet, trach care. Duoneb as needed. Trach management per pulmonology. 2. Urinary retention: Resolved. 3. UTI: Urine culture grew Aerococcus. Completed course of Augmentin. 4. Left MCA stroke: 5.5 mm of [id number] subfalcine herniation, diagnosed . Was not a candidate for thrombolysis at the time. Neurologic condition remained poor. She has persistent right-sided hemiparesis. Neurology and neurosurgery have signed off. Continue daily aspirin. 5. Shortness of breath, desaturation: Pulmonary edema on x-ray 11/13/17. Continue Lasix. 6. Hypertension: Continue amlodipine, doxazosin, hydralazine. Clonidine as needed. 7. Chronic systolic congestive heart failure: Echocardiogram 10/06/17 showed ejection fraction 25-30%. Continue current management. 8. Large left pneumothorax: Resolved. 9. Hepatitis C: LFTs normalized. 10. Diabetes mellitus: Patient initially presented with DKA. Continue Levemir. Monitor Accu-Cheks and cover with sliding scale insulin. 11. FEN: Glucerna per PEG tube. 12. Loose stools: C. difficile negative on multiple occasions. Continue Lactinex. Continue Questran. Likely secondary to tube feeds. 13. Anal fissure: Continue wound care. 14. DVT prophylaxis: Heparin. Problem Qualifiers (1) Acute respiratory failure: Qualified Codes: J96.00 - Acute respiratory failure, unspecified whether with hypoxia or hypercapnia (2) Sacral decubitus ulcer: Qualified Codes: L89.152 - Pressure ulcer of sacral region, stage 2 (3) Chronic respiratory failure: Qualified Codes: J96.11 - Chronic respiratory failure with hypoxia Janes Ervin MD Dec 19, 2017 10:03
[2017-12-19] MEDS: INSULIN DETEMIR 100 UNITS/ML VIAL SQ SCH ×2 (12:00→23:50)
[2017-12-19] MEDS: POVIDONE IODINE 10% SOLN 480 ML BTL EXTERNAL SCH (12:21)
--- NOTE | 2017-12-19 18:02 | HHI.PR ---
Subjective Remarks No events overnight. Patient is on TP's with 40% FIO2. . Tolerating tube feeds. Tolerates TF No fever Small amount of thick mucous Trach downsized to #6 Tolerates well. No new complaint Objective Vital Signs Vital Signs Date Time Temp Pulse Resp B/P (MAP) Pulse Ox O2 Delivery O2 Flow Rate FiO2 12/19/17 16:00 98.9 50 20 110/54 (72) 99 12/19/17 12:00 98.0 48 20 120/57 (78) 99 12/19/17 08:52 98 Trach Collar 6.00 28 12/19/17 08:00 97.6 88 18 140/62 (88) 99 12/19/17 08:00 98 Trach Collar 5.00 28 12/19/17 06:30 20 12/19/17 03:18 98.0 75 20 152/56 (88) 99 12/19/17 00:00 98.5 71 20 129/65 (86) 98 12/18/17 21:23 94 Trach Collar 6.00 28 12/18/17 20:00 Trach Collar 5.00 28 12/18/17 19:11 98.2 71 20 118/63 (81) 95 12/18/17 19:11 95 Trach Collar 5.00 28 I/O 12/18/17 12/18/17 12/18/17 12/19/17 12/19/17 12/19/17 07:00 15:00 23:00 07:00 15:00 23:00 Intake Total 1100 ml 969 ml 1140 ml Output Total 600 ml 300.0 ml 400.0 ml Balance 500 ml 669.0 ml 740.0 ml Tube Feeding 600 ml 469 ml 540 ml Other 500 ml 500 ml 600 ml Output Urine Total 600 ml 300 ml 400 ml Tube Feeding Residual Discard 0 ml 0 ml # Bowel Movements 3 1 4 Objective Remarks GENERAL: Elderly female,NAD SKIN: Warm and dry. HEAD: Normocephalic. EYES: No scleral icterus. No injection or drainage. NECK: Supple, trachea midline. No JVD or lymphadenopathy. + trach CARDIOVASCULAR: Regular rate and rhythm without murmurs, gallops, or rubs. RESPIRATORY: Breath sounds equal bilaterally. No accessory muscle use. GASTROINTESTINAL: Abdomen soft, non-tender, nondistended. MUSCULOSKELETAL: No cyanosis, or edema. BACK: Nontender without obvious deformity. No CVA tenderness. A/P Assessment and Plan Chronic resp failure, ,S/P Trach CVA Pneumonia Calcified Granuloma LLL Pseudomonas Tracheobronchitis, PLAN: Continue with TP's, keep sats >92% Bronchodilators, Pulm toilet, trach care CT chest 11/01: No PE,adenopathy in the right paratracheal, subcarinal and hilar regions with numerous prominent lymph nodes seen. Cont TF- GI/DVT prophylaxis Stable from pulm standpoint. [facility] RN at [facility] Available prn over weekend. Chris Rizo MD Dec 19, 2017 18:02
[2017-12-20] VITALS (39 sets, daily range): BP systolic 121–161; BP diastolic 48–82; PULSE 35–81; RESP 16–32; TEMP 98.1–100.3; O2SAT 77–100
[2017-12-20] MEDS: ONDANSETRON HCL 4 MG/2 ML VIAL IV PUSH PRN ×3 (04:31→19:02)
--- NOTE | 2017-12-20 04:56 | RADRPT ---
EXAM DATE/TIME: 12/20/2017 04:32 [facility] COMPARISON: CHEST SINGLE AP, December 02, 2017, 19:12. INDICATIONS : Shortness of breath. MEDICAL HISTORY : Stroke. Hypertension Diabetes mellitus type II. SURGICAL HISTORY : None. ENCOUNTER: Subsequent ACUITY: 2 weeks PAIN SCORE: Non-responsive. LOCATION: Bilateral chest FINDINGS: Again seen are patchy areas of parenchymal consolidation scattered throughout both lungs. This is sta ble from the prior study. Heart is normal in size. Tracheostomy tube noted. No effusions. Degenerativ e thoracic spine. CONCLUSION: Stable patchy scattered areas of consolidation involving both lungs. Deangelo Wren Jr., MD on December 20, 2017 at 4:54 Board Certified Radiologist. This report was verified electronically.
[2017-12-20] MEDS: hydrALAZINE HCL 10 MG TAB PEG SCH ×3 (05:14→21:01)
[2017-12-20] MEDS: FREE WATER PO SCH ×3 (05:15→17:09)
[2017-12-20] MEDS: HEPARIN SODIUM - SQ 10,000 UNITS/ML VIAL SQ SCH ×3 (05:15→21:01)
[2017-12-20] MEDS: RESP: ALBUTEROL 2.5 MG/3 ML NEB (PRN) NEB (05:22)
[2017-12-20] MEDS: INSULIN NovoLIN REGULAR SUPPLEMENTAL SCALE SQ SCH ×4 (06:11→23:53)
[2017-12-20] MEDS: CHOLECALCIFEROL (VIT D3) 5000 UNIT CAP PEG SCH (09:00)
[2017-12-20] MEDS: LISINOPRIL 5 MG TAB PEG SCH (09:00)
[2017-12-20] MEDS: CALCIUM/VITAMIN D 250 MG/125 U TAB PEG SCH ×3 (09:00→17:09)
[2017-12-20] MEDS: LACTOBACILLUS ACIDOPHILUS TAB PEG SCH ×2 (09:00→21:01)
[2017-12-20] MEDS: FUROSEMIDE 40 MG TAB PO SCH (09:00)
[2017-12-20] MEDS: ASPIRIN 325 MG TAB DOBHOFF SCH (09:00)
[2017-12-20] MEDS: INSULIN DETEMIR 100 UNITS/ML VIAL SQ SCH ×2 (12:00→23:53)
[2017-12-20] MEDS: LANSOPRAZOLE SOLUTAB 30 MG TAB NG SCH (12:26)
--- NOTE | 2017-12-20 15:40 | HHI.PR ---
Subjective Remarks HALJOSE ET was called this morning due to aspiration. Per nursing, patient aspirated yellow fluid. Tube feeds have been on hold. No residual noted. CXR shows patchy infiltrates. Patient also has been having watery diarrhea. Objective Vitals Vital Signs Date Time Temp Pulse Resp B/P (MAP) Pulse Ox O2 Delivery O2 Flow Rate FiO2 12/20/17 15:08 95 35 12/20/17 11:16 98 40 12/20/17 07:59 96 40 12/20/17 07:59 96 BiPAP 40 12/20/17 07:30 99.9 58 25 122/66 (84) 96 12/20/17 07:00 56 26 126/59 (81) 94 12/20/17 06:55 98 40 12/20/17 06:30 57 28 123/59 (80) 99 12/20/17 06:00 55 28 125/60 (81) 98 12/20/17 05:30 53 28 121/57 (78) 98 12/20/17 05:15 96 Trach Collar 10.00 80 12/20/17 05:00 93 Trach Collar 5.00 40 12/20/17 05:00 51 28 134/65 (88) 92 12/20/17 04:31 54 24 153/68 (96) 93 12/20/17 04:05 77 40 12/20/17 03:58 100 8.00 98 12/20/17 03:55 Trach Collar 15.00 98 12/20/17 03:55 98.8 66 24 139/82 (101) 87 12/20/17 00:03 98.1 42 16 144/64 (90) 96 12/19/17 21:42 99 Trach Collar 5.00 28 12/19/17 21:40 99 Trach Collar 5.00 28 12/19/17 19:33 98 Trach Collar 5.00 28 12/19/17 19:33 98.3 41 20 96/43 (60) 98 12/19/17 18:02 20 12/19/17 16:00 98.9 50 20 110/54 (72) 99 I/O 12/19/17 12/19/17 12/19/17 12/20/17 12/20/17 12/20/17 07:00 15:00 23:00 07:00 15:00 23:00 Intake Total 1140 ml 1340 ml 960 ml Output Total 400.0 ml 400.0 ml 500 ml Balance 740.0 ml 940.0 ml 460 ml Tube Feeding 540 ml 540 ml 360 ml Other 600 ml 800 ml 600 ml Output Urine Total 400 ml 400 ml 500 ml Tube Feeding Residual Discard 0 ml 0 ml 0 ml # Voids 1 # Bowel Movements 4 2 3 Imaging Last Impressions Chest X-Ray 12/20/17 0000 Signed Impressions: Service Date/Time: Wednesday, December 20, 2017 04:32 - CONCLUSION: Stable patchy scattered areas of consolidation involving both lungs. Deangelo Wren Jr., MD Upper Extremity Ultrasound 11/04/17 0000 Signed Impressions: Service Date/Time: Saturday, November 04, 2017 09:57 - CONCLUSION: No thrombus observed. Subcutaneous edema noted. Deangelo Wren Jr., MD Abdomen X-Ray 11/04/17 0000 Signed Impressions: Service Date/Time: Saturday, November 04, 2017 11:58 - CONCLUSION: Gaseous distention of bowel loops could be ileus but unchanged. Benja Ramsey MD CT Angiography 11/01/17 0000 Signed Impressions: Service Date/Time: Wednesday, November 01, 2017 16:47 - CONCLUSION: No evidence for pulmonary embolism. Please see above. Choco Mustafa MD Thoracentesis 08/05/17 1535 Signed Impressions: Service Date/Time: Saturday, August 05, 2017 16:08 - CONCLUSION: Uncomplicated CT-guided thoracentesis. Sage Adler MD Chest Ultrasound 08/02/17 0000 Signed Impressions: Service Date/Time: Tuesday, August 01, 2017 22:06 - CONCLUSION: 1. Moderate right pleural effusion, as above. Alejo De La Vega MD Hip and Pelvis X-Ray 07/09/17 0000 Signed Impressions: Service Date/Time: Sunday, July 09, 2017 14:04 - CONCLUSION: Anatomic alignment. Ricardo Middleton MD FACR Liver Ultrasound 06/19/17 0000 Signed Impressions: Service Date/Time: June 13:20 - CONCLUSION: 1. Mildly increased echotexture of the liver characteristic of hepatic steatosis. 2. Gallbladder sludge. Obdulio Sam MD Head CT 05/15/17 0000 Signed Impressions: Service Date/Time: May 19:59 - CONCLUSION: 1. 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 2. No bleed or new/acute infarct. Obdulio Simms MD Gall Bladder Ultrasound 05/08/17 0000 Signed Impressions: Service Date/Time: May 08:23 - CONCLUSION: Focally unremarkable appearance of the gallbladder Obdulio Chun MD Abdomen/Pelvis CT 05/07/17 0000 Signed Impressions: Service Date/Time: Sunday, May 07, 2017 13:23 - CONCLUSION: 1. Large left pneumothorax. 2. Bilateral lower lobe consolidation and bilateral moderate size pleural effusions. 3. Significant soft tissue thickening of the right lateral chest wall and left gluteus muscle. 4. Mild ascites. The findings were called to Dr. Carney. Deangelo Zamora MD Chest CT 04/30/17 0000 Signed Impressions: Service Date/Time: Sunday, April 30, 2017 09:20 - CONCLUSION: 1. Bilateral pulmonary infiltrates more pronounced within the lower lobes with tiny bilateral pleural effusions. Material seen filling the lower lobe bronchi bilaterally either related to purulent material or perhaps mucus plugging. Deangelo Wren Jr., MD Carotid Artery Ultrasound 04/24/17 0000 Signed Impressions: Service Date/Time: April 09:45 - CONCLUSION: 1. No hemodynamically significant carotid artery stenosis. Arnie Middleton MD Hip X-Ray 04/21/17 0000 Signed Impressions: Service Date/Time: Friday, April 21, 2017 11:36 - CONCLUSION: Fluoroscopic images during placement of intramedullary siomara left femur. Benja Ramsey MD Objective Remarks General: Elderly female in no acute distress. Left wrist in soft restraint. Heart: Regular rate and rhythm. No murmur. Lungs: Scattered rhonchi. Breathing is nonlabored. Abdomen: Soft, nontender, nondistended. Extremities: No lower extremity edema. Psych: Does not respond to verbal stimuli. Procedures PEG tube trach 05/15/17 and PEG 05/16/17 Urinary Catheter: No Vascular Central Line Catheter: No A/P Problem List: (1) Acute ischemic left middle cerebral artery (MCA) stroke ICD Code: I63.512 - Cerebral infarction due to unspecified occlusion or stenosis of left middle cerebral artery Status: Acute (2) Acute respiratory failure ICD Code: J96.00 - Acute respiratory failure, unspecified whether with hypoxia or hypercapnia (3) Right hemiplegia ICD Code: G81.91 - Hemiplegia, unspecified affecting right dominant side Status: Acute (4) Sacral decubitus ulcer ICD Code: L89.159 - Pressure ulcer of sacral region, unspecified stage Status: Chronic (5) HCAP (healthcare-associated pneumonia) ICD Code: J18.9 - Pneumonia, unspecified organism Status: Resolved (6) 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 ICD Code: A49.8 - Other bacterial infections of unspecified site; Z16.24 - Resistance to multiple antibiotics Status: Acute (7) CVA (cerebral vascular accident) ICD Code: I63.9 - Cerebral infarction, unspecified Status: Chronic (8) Chronic respiratory failure ICD Code: J96.10 - Chronic respiratory failure, unspecified whether with hypoxia or hypercapnia Status: Chronic Assessment and Plan 1. Respiratory failure, chronic tracheostomy: Continue pulmonary toilet, trach care. Duoneb as needed. Trach management per pulmonology. 2. Urinary retention: Resolved. 3. UTI: Urine culture grew Aerococcus. Completed course of Augmentin. 4. Left MCA stroke: 5.5 mm of [id number] subfalcine herniation, diagnosed . Was not a candidate for thrombolysis at the time. Neurologic condition remained poor. She has persistent right-sided hemiparesis. Neurology and neurosurgery have signed off. Continue daily aspirin. 5. Shortness of breath, desaturation: Pulmonary edema on x-ray 11/13/17. Continue Lasix. 6. Hypertension: BP was low today. BP meds held this morning. 7. Chronic systolic congestive heart failure: Echocardiogram 10/06/17 showed ejection fraction 25-30%. Continue current management. 8. Large left pneumothorax: Resolved. 9. Hepatitis C: LFTs normalized. 10. Diabetes mellitus: Patient initially presented with DKA. Continue Levemir. Monitor Accu-Cheks and cover with sliding scale insulin. 11. FEN: Glucerna per PEG tube. Tube feeds held following aspiration. Restart at lower rate and gradually increase to goal. Continue free water flushes. 12. Loose stools: C. difficile negative on multiple occasions. Continue Lactinex. Continue Questran. Likely secondary to tube feeds. Increased frequency of loose stools today. Repeat C. difficile. 13. Anal fissure: Continue wound care. 14. DVT prophylaxis: Heparin. 15. Aspiration pneumonia: CXR shows patchy infiltrates. Patient had witnessed aspiration. Now on BiPAP. Add Levaquin, Zosyn. Consult infectious disease. Problem Qualifiers (1) Acute respiratory failure: Qualified Codes: J96.00 - Acute respiratory failure, unspecified whether with hypoxia or hypercapnia (2) Sacral decubitus ulcer: Qualified Codes: L89.152 - Pressure ulcer of sacral region, stage 2 (3) Chronic respiratory failure: Qualified Codes: J96.11 - Chronic respiratory failure with hypoxia Janes Ervin MD Dec 20, 2017 15:40
[2017-12-20] MEDS ORDERED: LEVOFLOXACIN 750 MG PREMIX INJ 150 ML IV SCH (16:00)
[2017-12-20 16:46] LABS: BASOPHIL # 0.1 TH/MM3 (0-0.2); BASOPHIL % 0.7 % (0.0-2.0); EOSINOPHIL # 0.2 TH/MM3 (0-0.4); EOSINOPHIL % 0.9 % (0.0-4.0); HEMATOCRIT 28.1 % (35.0-46.0); HEMOGLOBIN 9.6 GM/DL (11.6-15.3); LYMPH % 13.7 % (9.0-44.0); LYMPHOCYTE # 2.4 TH/MM3 (1.0-4.8); MEAN CELL VOLUME 97.6 FL (80.0-100.0); MEAN CORPUSCULAR HEMOGLOBIN 33.3 PG (27.0-34.0); MEAN CORPUSCULAR HGB CONC 34.1 % (32.0-36.0); MEAN PLATELET VOLUME 9.2 FL (7.0-11.0); MONO % 5.2 % (0.0-8.0); MONOCYTE # 0.9 TH/MM3 (0-0.9); NEUT % 79.5 % (16.0-70.0); PLATELET COUNT 347 TH/MM3 (150-450); RED BLOOD COUNT 2.88 MIL/MM3 (4.00-5.30); RED CELL DISTRIBUTION WIDTH 13.6 % (11.6-17.2); WHITE BLOOD COUNT 17.7 TH/MM3 (4.0-11.0)
[2017-12-20 17:09] LABS: BICARBONATE 29.1 MEQ/L (21.0-32.0); CALCIUM 9.4 MG/DL (8.5-10.1); CREATININE 0.73 MG/DL (0.50-1.00)
[2017-12-20 17:23] LABS: BANDS 16 % (0-6); LYMPHOCYTES 12 % (9-44); MONOCYTES 6 % (0-8); NEUTROPHIL # MANUAL DIFF 14.5 TH/MM3 (1.8-7.7); POLYS (SEG NEUTROPHILS) 66 % (16-70)
[2017-12-20] MEDS: PIPERACIL-TAZO 4.5 GM PREMIX 100 ML IV SCH ×2 (18:16→22:39)
[2017-12-20] MEDS: SODIUM CHLOR 0.9% 1000 ML INJ 1,000 ML IV SCH (18:16)
[2017-12-21] VITALS (26 sets, daily range): BP systolic 110–168; BP diastolic 49–83; PULSE 63–98; RESP 20–28; TEMP 98.9–99.9; O2SAT 92–99
[2017-12-21] MEDS: FREE WATER PO SCH ×4 (05:13→18:00)
[2017-12-21] MEDS: HEPARIN SODIUM - SQ 10,000 UNITS/ML VIAL SQ SCH ×3 (05:13→21:56)
[2017-12-21] MEDS: PIPERACIL-TAZO 4.5 GM PREMIX 100 ML IV SCH ×3 (05:13→17:42)
[2017-12-21] MEDS: hydrALAZINE HCL 10 MG TAB PEG SCH ×3 (05:13→21:56)
[2017-12-21] MEDS: INSULIN NovoLIN REGULAR SUPPLEMENTAL SCALE SQ SCH ×3 (05:16→18:30)
--- NOTE | 2017-12-21 06:32 | RADRPT ---
EXAM DATE/TIME: 12/21/2017 05:51 [facility] COMPARISON: CHEST SINGLE AP, December 20, 2017, 4:32. INDICATIONS : Shortness of breath, possible pulmonary disease. MEDICAL HISTORY : Stroke. Hypertension Diabetes mellitus type II. SURGICAL HISTORY : None. ENCOUNTER: Subsequent ACUITY: 2 weeks PAIN SCORE: Non-responsive. LOCATION: Bilateral chest FINDINGS: Some improvement when compared to prior study. Interstitial prominence remains throughout both lungs. The groundglass infiltrates have improved somewhat. No effusions. Heart is normal in size. Tracheost israel tube. Degenerative spine. CONCLUSION: Some improvement in the infiltrates bilaterally. Deangelo Wren Jr., MD on December 21, 2017 at 6:29 Board Certified Radiologist. This report was verified electronically.
[2017-12-21] MEDS: SODIUM CHLOR 0.9% 1000 ML INJ 1,000 ML IV SCH (08:54)
[2017-12-21] MEDS: FUROSEMIDE 40 MG TAB PO SCH (09:00)
--- NOTE | 2017-12-21 09:31 | HHI.PR ---
Subjective Remarks Follow up aspiration pneumonia. Patient has been stable overnight per nursing. Tolerating tube feeds. Still on BiPAP at 35%. Objective Vitals Vital Signs Date Time Temp Pulse Resp B/P (MAP) Pulse Ox O2 Delivery O2 Flow Rate FiO2 12/21/17 09:00 85 26 139/69 (92) 96 12/21/17 08:00 99.9 86 22 141/64 (89) 95 12/21/17 08:00 97 Bi-Pap 35 T-Piece 12/21/17 07:00 86 25 149/79 (102) 97 12/21/17 06:00 96 Bi-Pap 35 12/21/17 06:00 86 20 168/76 (106) 96 12/21/17 05:00 79 20 144/69 (94) 98 12/21/17 04:00 99.5 76 20 135/63 (87) 98 12/21/17 04:00 98 Bi-Pap 35 12/21/17 03:54 99 35 12/21/17 03:00 72 20 129/64 (85) 99 12/21/17 02:00 72 20 129/76 (93) 99 12/21/17 01:40 98 35 12/21/17 01:00 82 24 137/83 (101) 98 12/21/17 00:00 73 24 121/62 (81) 98 12/21/17 00:00 98 Bi-Pap 35 12/20/17 23:25 98.6 68 20 136/67 (90) 98 12/20/17 22:00 77 24 144/65 (91) 98 12/20/17 21:32 97 35 12/20/17 21:00 76 24 141/70 (93) 93 12/20/17 20:00 81 24 153/69 (97) 99 12/20/17 20:00 99 Bi-Pap 35 12/20/17 19:50 100.3 78 24 138/55 (82) 97 12/20/17 18:00 99.9 59 27 134/48 (76) 99 12/20/17 17:00 100.1 56 29 137/53 (81) 99 12/20/17 16:00 99.4 57 28 141/59 (86) 99 12/20/17 15:08 95 35 12/20/17 15:00 45 27 145/80 (101) 99 12/20/17 14:30 40 28 147/70 (95) 97 12/20/17 14:00 99.8 57 25 141/64 (89) 96 12/20/17 13:30 60 24 149/69 (95) 97 12/20/17 13:00 100.0 60 28 161/72 (101) 99 12/20/17 12:30 59 28 139/71 (93) 99 12/20/17 12:00 99.9 59 28 144/69 (94) 97 12/20/17 11:30 59 21 126/59 (81) 98 12/20/17 11:16 98 40 12/20/17 11:00 60 26 137/59 (85) 98 12/20/17 10:30 35 27 137/69 (91) 98 12/20/17 10:00 40 25 141/66 (91) 95 12/20/17 10:00 98 Bi-Pap 35 T-Piece 12/20/17 09:30 40 28 140/68 (92) 97 I/O 12/20/17 12/20/17 12/20/17 12/21/17 12/21/17 12/21/17 07:00 15:00 23:00 07:00 15:00 23:00 Intake Total 960 ml 650 ml 1060 ml Output Total 500 ml 0 ml 550.0 ml 900 ml 0 ml Balance 460 ml 0 ml 100.0 ml 160 ml 0 ml IV Total 250 ml Tube Feeding 360 ml 100 ml 460 ml Other 600 ml 300 ml 600 ml Output Urine Total 500 ml 550 ml 900 ml Tube Feeding Residual Discard 0 ml 0 ml 0 ml 0 ml 0 ml # Voids 1 # Bowel Movements 3 0 0 Result Diagram: 12/20/17 1625 12/20/17 2044 Imaging Last Impressions Chest X-Ray 12/21/17 0600 Signed Impressions: Service Date/Time: Thursday, December 21, 2017 05:51 - CONCLUSION: Some improvement in the infiltrates bilaterally. Deangelo Wren Jr., MD Upper Extremity Ultrasound 11/04/17 0000 Signed Impressions: Service Date/Time: Saturday, November 04, 2017 09:57 - CONCLUSION: No thrombus observed. Subcutaneous edema noted. Deangelo Wren Jr., MD Abdomen X-Ray 11/04/17 0000 Signed Impressions: Service Date/Time: Saturday, November 04, 2017 11:58 - CONCLUSION: Gaseous distention of bowel loops could be ileus but unchanged. Benja Ramsey MD CT Angiography 11/01/17 0000 Signed Impressions: Service Date/Time: Wednesday, November 01, 2017 16:47 - CONCLUSION: No evidence for pulmonary embolism. Please see above. Choco Mustafa MD Thoracentesis 08/05/17 1535 Signed Impressions: Service Date/Time: Saturday, August 05, 2017 16:08 - CONCLUSION: Uncomplicated CT-guided thoracentesis. Sage Adler MD Chest Ultrasound 08/02/17 0000 Signed Impressions: Service Date/Time: Tuesday, August 01, 2017 22:06 - CONCLUSION: 1. Moderate right pleural effusion, as above. Alejo De La Vega MD Hip and Pelvis X-Ray 07/09/17 0000 Signed Impressions: Service Date/Time: Sunday, July 09, 2017 14:04 - CONCLUSION: Anatomic alignment. Ricardo Middleton MD FACR Liver Ultrasound 06/19/17 0000 Signed Impressions: Service Date/Time: June 13:20 - CONCLUSION: 1. Mildly increased echotexture of the liver characteristic of hepatic steatosis. 2. Gallbladder sludge. Obdulio Sam MD Head CT 05/15/17 0000 Signed Impressions: Service Date/Time: May 19:59 - CONCLUSION: 1. 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 2. No bleed or new/acute infarct. Obdulio Simms MD Gall Bladder Ultrasound 05/08/17 0000 Signed Impressions: Service Date/Time: May 08:23 - CONCLUSION: Focally unremarkable appearance of the gallbladder Obdulio Chun MD Abdomen/Pelvis CT 05/07/17 0000 Signed Impressions: Service Date/Time: Sunday, May 07, 2017 13:23 - CONCLUSION: 1. Large left pneumothorax. 2. Bilateral lower lobe consolidation and bilateral moderate size pleural effusions. 3. Significant soft tissue thickening of the right lateral chest wall and left gluteus muscle. 4. Mild ascites. The findings were called to Dr. Carney. Deangelo Zamora MD Chest CT 04/30/17 0000 Signed Impressions: Service Date/Time: Sunday, April 30, 2017 09:20 - CONCLUSION: 1. Bilateral pulmonary infiltrates more pronounced within the lower lobes with tiny bilateral pleural effusions. Material seen filling the lower lobe bronchi bilaterally either related to purulent material or perhaps mucus plugging. Deangelo Wren Jr., MD Carotid Artery Ultrasound 04/24/17 0000 Signed Impressions: Service Date/Time: April 09:45 - CONCLUSION: 1. No hemodynamically significant carotid artery stenosis. Arnie Middleton MD Hip X-Ray 04/21/17 0000 Signed Impressions: Service Date/Time: Friday, April 21, 2017 11:36 - CONCLUSION: Fluoroscopic images during placement of intramedullary siomara left femur. Benja Ramsey MD Objective Remarks General: Elderly female in no acute distress. Left wrist in soft restraint. Heart: Regular rate and rhythm. No murmur. Lungs: Scattered rhonchi. Breathing is nonlabored. Abdomen: Soft, nontender, nondistended. Extremities: No lower extremity edema. Psych: Does not respond to verbal stimuli. Procedures PEG tube trach 05/15/17 and PEG 05/16/17 Urinary Catheter: No Vascular Central Line Catheter: No A/P Problem List: (1) Acute ischemic left middle cerebral artery (MCA) stroke ICD Code: I63.512 - Cerebral infarction due to unspecified occlusion or stenosis of left middle cerebral artery Status: Acute (2) Acute respiratory failure ICD Code: J96.00 - Acute respiratory failure, unspecified whether with hypoxia or hypercapnia (3) Right hemiplegia ICD Code: G81.91 - Hemiplegia, unspecified affecting right dominant side Status: Acute (4) Sacral decubitus ulcer ICD Code: L89.159 - Pressure ulcer of sacral region, unspecified stage Status: Chronic (5) HCAP (healthcare-associated pneumonia) ICD Code: J18.9 - Pneumonia, unspecified organism Status: Acute (6) 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 ICD Code: A49.8 - Other bacterial infections of unspecified site; Z16.24 - Resistance to multiple antibiotics Status: Acute (7) CVA (cerebral vascular accident) ICD Code: I63.9 - Cerebral infarction, unspecified Status: Chronic (8) Chronic respiratory failure ICD Code: J96.10 - Chronic respiratory failure, unspecified whether with hypoxia or hypercapnia Status: Chronic Assessment and Plan 1. Respiratory failure, chronic tracheostomy: Continue pulmonary toilet, trach care. Duoneb as needed. Trach management per pulmonology. Now on BiPAP at 35% FiO2. 2. Urinary retention: Resolved. 3. UTI: Urine culture grew Aerococcus. Completed course of Augmentin. 4. Left MCA stroke: 5.5 mm of [id number] subfalcine herniation, diagnosed . Was not a candidate for thrombolysis at the time. Neurologic condition remained poor. She has persistent right-sided hemiparesis. Neurology and neurosurgery have signed off. Continue daily aspirin. 5. Aspiration pneumonia: CXR shows patchy infiltrates. Patient had witnessed aspiration. Now on BiPAP. Continue Levaquin, Zosyn. Infectious disease consult pending. 6. Hypertension: BP improved. Resume BP meds. 7. Chronic systolic congestive heart failure: Echocardiogram 10/06/17 showed ejection fraction 25-30%. Continue current management. 8. Large left pneumothorax: Resolved. 9. Hepatitis C: LFTs normalized. 10. Diabetes mellitus: Patient initially presented with DKA. Continue Levemir. Monitor Accu-Cheks and cover with sliding scale insulin. 11. FEN: Glucerna per PEG tube. Tube feeds held following aspiration. Restart at lower rate and gradually increase to goal. Continue free water flushes. 12. Loose stools: C. difficile negative on multiple occasions. Continue Lactinex. Continue Questran. Likely secondary to tube feeds. Increased frequency of loose stools today. Repeat C. difficile. 13. Anal fissure: Continue wound care. 14. DVT prophylaxis: Heparin. Problem Qualifiers (1) Acute respiratory failure: Qualified Codes: J96.00 - Acute respiratory failure, unspecified whether with hypoxia or hypercapnia (2) Sacral decubitus ulcer: Qualified Codes: L89.152 - Pressure ulcer of sacral region, stage 2 (3) Chronic respiratory failure: Qualified Codes: J96.11 - Chronic respiratory failure with hypoxia Janes Ervin MD Dec 21, 2017 09:31
[2017-12-21 09:57] LABS: AUTOMATED NEUTROPHIL # 9.3 TH/MM3 (1.8-7.7); BASOPHIL # 0.1 TH/MM3 (0-0.2); BASOPHIL % 0.7 % (0.0-2.0); EOSINOPHIL # 0.3 TH/MM3 (0-0.4); EOSINOPHIL % 2.8 % (0.0-4.0); HEMATOCRIT 27.5 % (35.0-46.0); HEMOGLOBIN 9.4 GM/DL (11.6-15.3); LYMPH % 14.2 % (9.0-44.0); LYMPHOCYTE # 1.7 TH/MM3 (1.0-4.8); MEAN CELL VOLUME 97.3 FL (80.0-100.0); MEAN CORPUSCULAR HEMOGLOBIN 33.2 PG (27.0-34.0); MEAN CORPUSCULAR HGB CONC 34.1 % (32.0-36.0); MEAN PLATELET VOLUME 8.8 FL (7.0-11.0); MONO % 6.4 % (0.0-8.0); MONOCYTE # 0.8 TH/MM3 (0-0.9); NEUT % 75.9 % (16.0-70.0); PLATELET COUNT 332 TH/MM3 (150-450); RED BLOOD COUNT 2.83 MIL/MM3 (4.00-5.30); RED CELL DISTRIBUTION WIDTH 13.8 % (11.6-17.2); WHITE BLOOD COUNT 12.2 TH/MM3 (4.0-11.0)
[2017-12-21] MEDS: LANSOPRAZOLE SOLUTAB 30 MG TAB NG SCH (10:04)
[2017-12-21] MEDS: CALCIUM/VITAMIN D 250 MG/125 U TAB PEG SCH ×3 (10:04→17:43)
[2017-12-21] MEDS: CHOLECALCIFEROL (VIT D3) 5000 UNIT CAP PEG SCH (10:04)
[2017-12-21] MEDS: ASPIRIN 325 MG TAB DOBHOFF SCH (10:04)
[2017-12-21] MEDS: LACTOBACILLUS ACIDOPHILUS TAB PEG SCH ×2 (10:04→21:54)
[2017-12-21] MEDS: oxyCODONE HCL ORAL CONC 5 MG/0.25 ML SYRINGE PO PRN (10:05)
[2017-12-21] MEDS: LISINOPRIL 5 MG TAB PEG SCH (10:05)
[2017-12-21 10:32] LABS: ALBUMIN 2.5 GM/DL (3.4-5.0); ALKALINE PHOSPHATASE 169 U/L (45-117); ALT (GPT) 29 U/L (10-53); AST (GOT) 22 U/L (15-37); BICARBONATE 30.2 MEQ/L (21.0-32.0); BLOOD UREA NITROGEN 28 MG/DL (7-18); CHLORIDE 103 MEQ/L (98-107); CREATININE 0.71 MG/DL (0.50-1.00); GLOMERULAR FILTRATION RATE 80 ML/MIN (>89); GLUCOSE,RANDOM 124 MG/DL (74-106); MAGNESIUM 2.1 MG/DL (1.5-2.5); SODIUM (NA) 139 MEQ/L (136-145); TOTAL BILIRUBIN ADULT 0.4 MG/DL (0.2-1.0); TOTAL PROTEIN 6.8 GM/DL (6.4-8.2)
--- NOTE | 2017-12-21 12:37 | PD.CONS ---
History of Present Illness Service Infectious Disease Consult Requested By Dr Ervin Reason for Consult Evaluate patient with new aspiration PNA, fevers Primary Care Physician Unknown Diagnoses: History of Present Illness Patient seen and examined. Records reviewed. Patient is a 77-year-old female initially admitted to the hospital April 21 and she was diagnosed to have left hip fracture as well as DKA. She underwent repair of her fracture, and while in the hospital recovering she had a large left MCA CVA. She has required ventilatory support, and ended up getting a tracheostomy on May 15, and a PEG placement May 16. Patient was successfully weaned from the vent. Her neurological status had some improvement , and she has been awake but only intermittently following commands. Patient has been treated for multiple infections including pneumonia and UTI. She has had infections with MDR, including resistant Pseudomonas as well as VRE. About 2 days ago, she had an episode of vomiting and witnessed aspiration. She has been febrile, and her WBC had gone up to 17,000. Chest x-ray done showed some no infiltrates especially on the right side. She also has required BiPAP. Infectious disease consultation has been requested again to assist with management of her aspiration pneumonia. Discuss the case with her RN. Her temperature is currently 100.9. Hemodynamics are stable. She is back on tube feedings, and she is on BiPAP with good saturation. She is currently on Zosyn and Levaquin. Her chest x-ray today showed some stable infiltrates and possibly some mild improvement. Review of Systems ROS Limitations: Clinical Condition, Altered Mental Status, Unresponsive Past Family Social History Allergies: Coded Allergies: No Known Allergies (Unverified , 04/20/17) Past Medical History CVA Hypertension Diabetes Past Surgical History S/P trach 05/2017 S/P PEG 05/2017 ORIF L hip Active Ordered Medications Current Medications Medications (Trade) Dose Ordered Sig/Zeferino Route Start Time Stop Time Status Last Admin (Narcan Inj) 0.4 mg UNSCH PRN IV 04/20/17 17:15 (Aspirin) 325 mg DAILY DOBHOFF 04/27/17 09:00 12/21/17 10:04 (Prevacid Odt) 30 mg DAILY NG 05/08/17 09:00 12/21/17 10:04 (Nitroglycerin 2% Oint) 2 inch Q6H PRN TOPICAL 06/21/17 08:00 06/30/17 14:37 (Heparin Inj) 5,000 units Q8HR SQ 07/15/17 08:00 12/21/17 05:13 (Pill Splitter) 1 ea UNSCH PRN OTHER 09/05/17 11:00 (Apresoline) 10 mg Q8HR PEG 09/24/17 14:00 12/21/17 05:13 (Norvasc) 10 mg DAILY PEG 10/04/17 09:00 12/21/17 10:04 (Oscal-D 250-125) 250 mg TID PEG 10/03/17 13:00 12/21/17 10:04 (Vitamin D3) 5,000 units DAILY PEG 10/04/17 09:00 12/21/17 10:04 (Catapres) 0.1 mg Q6H PRN PEG 10/03/17 12:30 11/27/17 00:23 (Lactinex) 1 tab Q12HR PEG 10/03/17 21:00 12/21/17 10:04 (Miralax) 17 gm DAILY PRN PEG 10/03/17 12:00 (Beneprotein Powder) 1 pack TID PRN G-TUBE 10/03/17 12:00 (Albuterol Neb) 2.5 mg Q2HR NEB PRN NEB 10/03/17 21:45 12/20/17 05:22 (Tylenol 650 Mg/ 20 ml Liq) 650 mg Q6H PRN PEG 10/26/17 06:45 12/15/17 05:51 (Roxicodone Intensol Liq) 5 mg Q6H PRN PO 10/29/17 11:00 12/21/17 10:05 (D50w (Vial) Inj) 50 ml UNSCH PRN IV PUSH 11/04/17 12:30 12/08/17 12:27 (Glucagon Inj) 1 mg UNSCH PRN OTHER 11/04/17 12:30 (NovoLIN R SUPPLEMENTAL SCALE) 1 Q6H SQ 11/04/17 12:30 12/20/17 23:53 (Reglan Liq) 10 mg Q8HR PO 11/07/17 14:30 Future Hold 11/18/17 14:08 (Questran Light Pkt) 4 gm BID PRN PEG 11/12/17 13:30 12/19/17 09:47 (Prinivil) 5 mg DAILY PEG 11/23/17 09:00 12/21/17 10:05 (Lomotil 2.5-0.025 Mg Liq) 5 ml Q6H PRN PO 11/25/17 13:15 12/19/17 23:50 (Levemir Inj) 12 units Q12H SQ 12/03/17 00:00 12/20/17 23:53 (Lasix) 40 mg DAILY PO 12/04/17 09:00 12/19/17 09:48 (Zofran Inj) 4 mg Q6HR PRN IV PUSH 12/08/17 05:00 12/20/17 19:02 (Free Water) 250 ml Q6HR PO 12/13/17 18:00 12/20/17 17:09 (Tears Naturale Opth Soln) 1 drop Q8H PRN EACH EYE 12/19/17 19:30 Piperacillin Sod/ Tazobactam Sod 100 ml @ 200 mls/hr Q6H IV 12/20/17 17:00 12/21/17 05:13 Levofloxacin/ Dextrose 150 ml @ 100 mls/hr Q24H IV 12/20/17 16:00 12/20/17 18:17 Sodium Chloride 1,000 ml @ 84 mls/hr [id number] IV 12/20/17 18:00 12/21/17 08:54 (Baciguent Oint) 1 applic Q12HR TOPICAL 12/21/17 10:00 Family History Non-contributory Social History No smoking No alcohol abuse No drugs Physical Exam Vital Signs Vital Signs Date Time Temp Pulse Resp B/P (MAP) Pulse Ox O2 Delivery O2 Flow Rate FiO2 12/21/17 10:00 98 24 152/78 (102) 97 12/21/17 09:30 97 BiPAP 35 12/21/17 09:30 97 35 12/21/17 09:00 85 26 139/69 (92) 96 12/21/17 08:00 99.9 86 22 141/64 (89) 95 12/21/17 08:00 97 Bi-Pap 35 T-Piece 12/21/17 07:00 86 25 149/79 (102) 97 12/21/17 06:00 96 Bi-Pap 35 12/21/17 06:00 86 20 168/76 (106) 96 12/21/17 05:00 79 20 144/69 (94) 98 12/21/17 04:00 99.5 76 20 135/63 (87) 98 12/21/17 04:00 98 Bi-Pap 35 12/21/17 03:54 99 35 12/21/17 03:00 72 20 129/64 (85) 99 12/21/17 02:00 72 20 129/76 (93) 99 12/21/17 01:40 98 35 12/21/17 01:00 82 24 137/83 (101) 98 12/21/17 00:00 73 24 121/62 (81) 98 12/21/17 00:00 98 Bi-Pap 35 12/20/17 23:25 98.6 68 20 136/67 (90) 98 12/20/17 22:00 77 24 144/65 (91) 98 12/20/17 21:32 97 35 12/20/17 21:00 76 24 141/70 (93) 93 12/20/17 20:00 81 24 153/69 (97) 99 12/20/17 20:00 99 Bi-Pap 35 12/20/17 19:50 100.3 78 24 138/55 (82) 97 12/20/17 18:00 99.9 59 27 134/48 (76) 99 12/20/17 17:00 100.1 56 29 137/53 (81) 99 12/20/17 16:00 99.4 57 28 141/59 (86) 99 12/20/17 15:08 95 35 12/20/17 15:00 45 27 145/80 (101) 99 12/20/17 14:30 40 28 147/70 (95) 97 12/20/17 14:00 99.8 57 25 141/64 (89) 96 12/20/17 13:30 60 24 149/69 (95) 97 12/20/17 13:00 100.0 60 28 161/72 (101) 99 Physical Exam GENERAL: Patient is a well-nourished, well-developed female, opens eyes when stimulated, not followig, on BIPAP, NAD. SKIN: Warm and dry. No generalized rash, no ecchymoses and no evidence of embolic lesions. HEAD: Atraumatic. Normocephalic. No temporal wasting, or tenderness. EYES: Aldine conjunctiva. No petechia or hemorrhage. Pupils equal, round and reactive to light. Extraocular movements full and intact. No scleral icterus. No injection or drainage. EARS, NOSE AND THROAT: Nose without bleeding or purulent nasal discharge. No sinus tenderness. Mucous membranes pink and moist. No oral lesions noted. No exudate. No oral thrush. NECK: Trachea midline. Trach site ok. Supple and not tender, no meningeal signs CARDIOVASCULAR: Regular rate and rhythm. Soft heart sounds. RESPIRATORY: has bilateral rhonchi worse on R than L ABDOMEN: Soft, mildly distended, some grimacing during palpation. Bowel sounds present and normoactive. PEG site ok EXTREMITIES: No clubbing, cyanosis, or edema. Well perfused and warm. NEUROLOGICAL: Opens eyes when stimulated PSYCHIATRIC: Unable to assess LINE: No evidence of infection Laboratory Laboratory Tests Test 12/20/17 16:25 12/20/17 20:44 12/21/17 09:11 12/21/17 09:16 White Blood Count 17.7 12.2 Red Blood Count 2.88 2.83 Hemoglobin 9.6 9.4 Hematocrit 28.1 27.5 Mean Corpuscular Volume 97.6 97.3 Mean Corpuscular Hemoglobin 33.3 33.2 Mean Corpuscular Hemoglobin Concent 34.1 34.1 Red Cell Distribution Width 13.6 13.8 Platelet Count 347 332 Mean Platelet Volume 9.2 8.8 Neutrophils (%) (Auto) 79.5 75.9 Lymphocytes (%) (Auto) 13.7 14.2 Monocytes (%) (Auto) 5.2 6.4 Eosinophils (%) (Auto) 0.9 2.8 Basophils (%) (Auto) 0.7 0.7 Neutrophils # (Auto) 14.0 9.3 Lymphocytes # (Auto) 2.4 1.7 Monocytes # (Auto) 0.9 0.8 Eosinophils # (Auto) 0.2 0.3 Basophils # (Auto) 0.1 0.1 CBC Comment AUTO DIFF DIFF FINAL Differential Total Cells Counted 100 Neutrophils % (Manual) 66 Band Neutrophils % 16 Lymphocytes % 12 Monocytes % 6 Neutrophils # (Manual) 14.5 Differential Comment FINAL DIFF MANUAL Platelet Estimate NORMAL Platelet Morphology Comment NORMAL Red Cell Morphology Comment NORMAL Blood Urea Nitrogen 40 28 Creatinine 0.73 0.71 Random Glucose 144 124 Calcium Level 9.4 9.0 Sodium Level 131 139 Potassium Level 5.6 5.1 4.5 Chloride Level 95 103 Carbon Dioxide Level 29.1 30.2 Anion Gap 7 6 Estimat Glomerular Filtration Rate 78 80 Lactic Acid Level 1.1 Total Protein 6.8 Albumin 2.5 Magnesium Level 2.1 Alkaline Phosphatase 169 Aspartate Amino Transf (AST/SGOT) 22 Alanine Aminotransferase (ALT/SGPT) 29 Total Bilirubin 0.4 Total Creatine Kinase 88 Date/Time Source Procedure Growth Status 07/25/17 10:35 Blood Peripheral Aerobic Blood Culture - Final NO GROWTH IN 5 DAYS Complete 07/25/17 10:35 Blood Peripheral Anaerobic Blood Culture - Final NO GROWTH IN 5 DAYS Complete 08/05/17 14:25 Fluid Pleural Fluid Gram Stain - Final Complete 08/05/17 14:25 Fluid Pleural Fluid Body Fluid Culture - Final NO GROWTH IN 72 HRS.--AEROBICALLY OR ... Complete 05/29/17 17:15 Stool Stool Stool Occult Blood (JEFFREY) - Final HEMOCCULT NEGATIVE Complete 10/18/17 16:30 Sputum Endotracheal Gram Stain - Final Complete 10/18/17 16:30 Sputum Culture - Final Serratia Marcescens Complete 12/02/17 20:00 Urine Catheterized Urine Urine Culture - Final Pseudo Fluorescens/Putida Complete Result Diagram: 12/21/17 0911 12/21/17 0916 Imaging Last Impressions Chest X-Ray 12/21/17 0600 Signed Impressions: Service Date/Time: Thursday, December 21, 2017 05:51 - CONCLUSION: Some improvement in the infiltrates bilaterally. Deangelo Wren Jr., MD Upper Extremity Ultrasound 11/04/17 0000 Signed Impressions: Service Date/Time: Saturday, November 04, 2017 09:57 - CONCLUSION: No thrombus observed. Subcutaneous edema noted. Deangelo Wren Jr., MD Abdomen X-Ray 11/04/17 0000 Signed Impressions: Service Date/Time: Saturday, November 04, 2017 11:58 - CONCLUSION: Gaseous distention of bowel loops could be ileus but unchanged. Benja Ramsey MD CT Angiography 11/01/17 0000 Signed Impressions: Service Date/Time: Wednesday, November 01, 2017 16:47 - CONCLUSION: No evidence for pulmonary embolism. Please see above. Choco Mustafa MD Thoracentesis 08/05/17 9945 Signed Impressions: Service Date/Time: Saturday, August 05, 2017 16:08 - CONCLUSION: Uncomplicated CT-guided thoracentesis. Sage Adler MD Chest Ultrasound 08/02/17 0000 Signed Impressions: Service Date/Time: Tuesday, August 01, 2017 22:06 - CONCLUSION: 1. Moderate right pleural effusion, as above. Alejo De La Vega MD Hip and Pelvis X-Ray 07/09/17 0000 Signed Impressions: Service Date/Time: Sunday, July 09, 2017 14:04 - CONCLUSION: Anatomic alignment. Ricardo Middleton MD FACR Liver Ultrasound 06/19/17 0000 Signed Impressions: Service Date/Time: June 13:20 - CONCLUSION: 1. Mildly increased echotexture of the liver characteristic of hepatic steatosis. 2. Gallbladder sludge. Obdulio Sam MD Head CT 05/15/17 0000 Signed Impressions: Service Date/Time: May 19:59 - CONCLUSION: 1. 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 2. No bleed or new/acute infarct. Obdulio Simms MD Gall Bladder Ultrasound 05/08/17 0000 Signed Impressions: Service Date/Time: May 08:23 - CONCLUSION: Focally unremarkable appearance of the gallbladder Obdulio Chun MD Abdomen/Pelvis CT 05/07/17 0000 Signed Impressions: Service Date/Time: Sunday, May 07, 2017 13:23 - CONCLUSION: 1. Large left pneumothorax. 2. Bilateral lower lobe consolidation and bilateral moderate size pleural effusions. 3. Significant soft tissue thickening of the right lateral chest wall and left gluteus muscle. 4. Mild ascites. The findings were called to Dr. Carney. Deangelo Zamora MD Chest CT 04/30/17 0000 Signed Impressions: Service Date/Time: Sunday, April 30, 2017 09:20 - CONCLUSION: 1. Bilateral pulmonary infiltrates more pronounced within the lower lobes with tiny bilateral pleural effusions. Material seen filling the lower lobe bronchi bilaterally either related to purulent material or perhaps mucus plugging. Deangelo Wren Jr., MD Carotid Artery Ultrasound 04/24/17 0000 Signed Impressions: Service Date/Time: April 09:45 - CONCLUSION: 1. No hemodynamically significant carotid artery stenosis. Arnie Middleton MD Hip X-Ray 04/21/17 0000 Signed Impressions: Service Date/Time: Friday, April 21, 2017 11:36 - CONCLUSION: Fluoroscopic images during placement of intramedullary siomara left femur. 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
[2017-12-21] MEDS: INSULIN DETEMIR 100 UNITS/ML VIAL SQ SCH (12:45)
[2017-12-21] MEDS ORDERED: FUROSEMIDE 20 MG/2 ML VIAL IV PUSH ONE (14:45)
[2017-12-21] MEDS: LEVOFLOXACIN 750 MG TAB PO SCH (17:43)
[2017-12-21] MEDS: BACITRACIN TOP OINT 15 GM TUBE TOPICAL SCH ×2 (17:43→21:00)
[2017-12-21] MEDS: LINEZOLID 600 MG TAB PO SCH (21:55)
[2017-12-22] VITALS (8 sets, daily range): BP systolic 121–156; BP diastolic 48–75; PULSE 63–80; RESP 14–20; TEMP 97.7–98.9; O2SAT 93–99
[2017-12-22] MEDS: INSULIN NovoLIN REGULAR SUPPLEMENTAL SCALE SQ SCH ×5 (00:30→23:53)
[2017-12-22] MEDS: INSULIN DETEMIR 100 UNITS/ML VIAL SQ SCH ×3 (00:31→23:53)
[2017-12-22] MEDS: PIPERACIL-TAZO 4.5 GM PREMIX 100 ML IV SCH ×5 (00:31→23:45)
[2017-12-22] MEDS: hydrALAZINE HCL 10 MG TAB PEG SCH ×3 (05:25→21:36)
[2017-12-22] MEDS: HEPARIN SODIUM - SQ 10,000 UNITS/ML VIAL SQ SCH ×3 (05:25→21:37)
[2017-12-22] MEDS: FREE WATER PO SCH ×5 (05:25→23:45)
[2017-12-22 07:19] LABS: AUTOMATED NEUTROPHIL # 6.8 TH/MM3 (1.8-7.7); BASOPHIL # 0.1 TH/MM3 (0-0.2); BASOPHIL % 0.8 % (0.0-2.0); EOSINOPHIL # 0.5 TH/MM3 (0-0.4); EOSINOPHIL % 4.8 % (0.0-4.0); HEMATOCRIT 28.2 % (35.0-46.0); HEMOGLOBIN 9.9 GM/DL (11.6-15.3); LYMPH % 16.2 % (9.0-44.0); LYMPHOCYTE # 1.6 TH/MM3 (1.0-4.8); MEAN CELL VOLUME 96.9 FL (80.0-100.0); MEAN CORPUSCULAR HGB CONC 35.1 % (32.0-36.0); MEAN PLATELET VOLUME 8.5 FL (7.0-11.0); MONO % 8.9 % (0.0-8.0); MONOCYTE # 0.9 TH/MM3 (0-0.9); NEUT % 69.3 % (16.0-70.0); PLATELET COUNT 356 TH/MM3 (150-450); RED BLOOD COUNT 2.91 MIL/MM3 (4.00-5.30); RED CELL DISTRIBUTION WIDTH 13.8 % (11.6-17.2); WHITE BLOOD COUNT 9.8 TH/MM3 (4.0-11.0)
[2017-12-22 07:42] LABS: BICARBONATE 29.2 MEQ/L (21.0-32.0); CALCIUM 8.8 MG/DL (8.5-10.1); CREATININE 0.57 MG/DL (0.50-1.00)
--- NOTE | 2017-12-22 08:18 | HHI.PR ---
Subjective Remarks Follow up aspiration pneumonia. Nursing reports increased frequency of stools and that they are quite foul smelling. Wound on LUQ of abdomen. Objective Vitals Vital Signs Date Time Temp Pulse Resp B/P (MAP) Pulse Ox O2 Delivery O2 Flow Rate FiO2 12/22/17 04:00 98.3 80 20 142/75 (97) 96 12/22/17 02:06 96 35 12/22/17 00:00 98.0 78 16 121/60 (80) 93 12/21/17 21:52 95 35 12/21/17 20:00 92 Bi-Pap 35 T-Piece 12/21/17 20:00 98.9 71 22 120/59 (79) 95 12/21/17 19:00 78 22 116/63 (80) 93 12/21/17 18:00 70 24 120/64 (82) 95 12/21/17 17:00 66 26 120/54 (76) 92 12/21/17 16:34 98 35 12/21/17 16:00 80 24 110/54 (72) 96 12/21/17 15:00 77 26 113/49 (70) 97 12/21/17 14:00 63 26 132/56 (81) 97 12/21/17 13:00 68 28 120/60 (80) 96 12/21/17 12:00 99.8 67 22 111/56 (74) 98 12/21/17 11:05 26 12/21/17 11:00 74 26 127/64 (85) 98 12/21/17 10:00 98 24 152/78 (102) 97 12/21/17 09:30 97 BiPAP 35 12/21/17 09:30 97 35 12/21/17 09:00 85 26 139/69 (92) 96 I/O 12/21/17 12/21/17 12/21/17 12/22/17 12/22/17 12/22/17 07:00 15:00 23:00 07:00 15:00 23:00 Intake Total 1260 ml 860 ml 1040 ml 2116 ml Output Total 900 ml 0 ml 300.0 ml Balance 360 ml 860 ml 740.0 ml 2116 ml Intake Oral 0 ml IV Total 200 ml 860 ml 200 ml Tube Feeding 460 ml 540 ml 1050 ml Other 600 ml 500 ml 866 ml Output Urine Total 900 ml 300 ml Tube Feeding Residual Discard 0 ml 0 ml 0 ml # Voids 2 3 # Bowel Movements 0 5 3 Result Diagram: 12/22/17 0655 12/22/17 0655 Imaging Last Impressions Chest X-Ray 12/21/17 0600 Signed Impressions: Service Date/Time: Thursday, December 21, 2017 05:51 - CONCLUSION: Some improvement in the infiltrates bilaterally. Deangelo Wren Jr., MD Upper Extremity Ultrasound 11/04/17 0000 Signed Impressions: Service Date/Time: Saturday, November 04, 2017 09:57 - CONCLUSION: No thrombus observed. Subcutaneous edema noted. Deangelo Wren Jr., MD Abdomen X-Ray 11/04/17 0000 Signed Impressions: Service Date/Time: Saturday, November 04, 2017 11:58 - CONCLUSION: Gaseous distention of bowel loops could be ileus but unchanged. Benja Ramsey MD CT Angiography 11/01/17 0000 Signed Impressions: Service Date/Time: Wednesday, November 01, 2017 16:47 - CONCLUSION: No evidence for pulmonary embolism. Please see above. Choco Mustafa MD Thoracentesis 08/05/17 1535 Signed Impressions: Service Date/Time: Saturday, August 05, 2017 16:08 - CONCLUSION: Uncomplicated CT-guided thoracentesis. Sage Adler MD Chest Ultrasound 08/02/17 0000 Signed Impressions: Service Date/Time: Tuesday, August 01, 2017 22:06 - CONCLUSION: 1. Moderate right pleural effusion, as above. Alejo De La Vega MD Hip and Pelvis X-Ray 07/09/17 0000 Signed Impressions: Service Date/Time: Sunday, July 09, 2017 14:04 - CONCLUSION: Anatomic alignment. Ricardo Middleton MD FACR Liver Ultrasound 06/19/17 0000 Signed Impressions: Service Date/Time: June 13:20 - CONCLUSION: 1. Mildly increased echotexture of the liver characteristic of hepatic steatosis. 2. Gallbladder sludge. Obdulio Sam MD Head CT 05/15/17 0000 Signed Impressions: Service Date/Time: , May 15, 2017 19:59 - CONCLUSION: 1. 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 2. No bleed or new/acute infarct. Obdulio Simms MD Gall Bladder Ultrasound 05/08/17 0000 Signed Impressions: Service Date/Time: May 08:23 - CONCLUSION: Focally unremarkable appearance of the gallbladder Obdulio Chun MD Abdomen/Pelvis CT 05/07/17 0000 Signed Impressions: Service Date/Time: Sunday, May 07, 2017 13:23 - CONCLUSION: 1. Large left pneumothorax. 2. Bilateral lower lobe consolidation and bilateral moderate size pleural effusions. 3. Significant soft tissue thickening of the right lateral chest wall and left gluteus muscle. 4. Mild ascites. The findings were called to Dr. Carney. Deangelo Zamora MD Chest CT 04/30/17 0000 Signed Impressions: Service Date/Time: Sunday, April 30, 2017 09:20 - CONCLUSION: 1. Bilateral pulmonary infiltrates more pronounced within the lower lobes with tiny bilateral pleural effusions. Material seen filling the lower lobe bronchi bilaterally either related to purulent material or perhaps mucus plugging. Deangelo Wren Jr., MD Carotid Artery Ultrasound 04/24/17 0000 Signed Impressions: Service Date/Time: April 09:45 - CONCLUSION: 1. No hemodynamically significant carotid artery stenosis. Arnie Middleton MD Hip X-Ray 04/21/17 0000 Signed Impressions: Service Date/Time: Friday, April 21, 2017 11:36 - CONCLUSION: Fluoroscopic images during placement of intramedullary siomara left femur. Benja Ramsey MD Objective Remarks General: Elderly female in no acute distress. Left wrist in soft restraint. Heart: Regular rate and rhythm. No murmur. Lungs: Scattered rhonchi. Breathing is nonlabored. Abdomen: Soft, nontender, nondistended. Small area of erythema surrounding a central wound in the LUQ. Minimal drainage at this time. Extremities: No lower extremity edema. Psych: Does not respond to verbal stimuli. Procedures PEG tube trach 05/15/17 and PEG 05/16/17 Urinary Catheter: No Vascular Central Line Catheter: No A/P Problem List: (1) Acute ischemic left middle cerebral artery (MCA) stroke ICD Code: I63.512 - Cerebral infarction due to unspecified occlusion or stenosis of left middle cerebral artery Status: Acute (2) Acute respiratory failure ICD Code: J96.00 - Acute respiratory failure, unspecified whether with hypoxia or hypercapnia (3) Right hemiplegia ICD Code: G81.91 - Hemiplegia, unspecified affecting right dominant side Status: Acute (4) Sacral decubitus ulcer ICD Code: L89.159 - Pressure ulcer of sacral region, unspecified stage Status: Chronic (5) HCAP (healthcare-associated pneumonia) ICD Code: J18.9 - Pneumonia, unspecified organism Status: Acute (6) 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 ICD Code: A49.8 - Other bacterial infections of unspecified site; Z16.24 - Resistance to multiple antibiotics Status: Acute (7) CVA (cerebral vascular accident) ICD Code: I63.9 - Cerebral infarction, unspecified Status: Chronic (8) Chronic respiratory failure ICD Code: J96.10 - Chronic respiratory failure, unspecified whether with hypoxia or hypercapnia Status: Chronic Assessment and Plan 1. Respiratory failure, chronic tracheostomy: Continue pulmonary toilet, trach care. Duoneb as needed. Trach management per pulmonology. Now on BiPAP at 35% FiO2. 2. Urinary retention: Resolved. 3. UTI: Urine culture grew Aerococcus. Completed course of Augmentin. 4. Left MCA stroke: 5.5 mm of [id number] subfalcine herniation, diagnosed . Was not a candidate for thrombolysis at the time. Neurologic condition remained poor. She has persistent right-sided hemiparesis. Neurology and neurosurgery have signed off. Continue daily aspirin. 5. Aspiration pneumonia: CXR shows patchy infiltrates. Patient had witnessed aspiration. Now on BiPAP. Continue Levaquin, Zosyn. Appreciate infectious disease recommendations. 6. Hypertension: Continue Lasix, lisinopril, amlodipine. 7. Chronic systolic congestive heart failure: Echocardiogram 10/06/17 showed ejection fraction 25-30%. Continue Lasix. 8. Large left pneumothorax: Resolved. 9. Hepatitis C: LFTs normalized. 10. Diabetes mellitus: Patient initially presented with DKA. Continue Levemir. Monitor Accu-Cheks and cover with sliding scale insulin. 11. FEN: Glucerna per PEG tube. Tube feeds held following aspiration. Restart at lower rate and gradually increase to goal. Continue free water flushes. 12. Loose stools: C. difficile negative on multiple occasions, most recently . Continue Lactinex. Continue Questran. Likely secondary to tube feeds. Increased frequency of loose stools reported by nursing. Add Lomotil. 13. Anal fissure: Continue wound care. 14. DVT prophylaxis: Heparin. 15. LUQ abdomen wound: Wound care. Bacitracin ointment. Problem Qualifiers (1) Acute respiratory failure: Qualified Codes: J96.00 - Acute respiratory failure, unspecified whether with hypoxia or hypercapnia (2) Sacral decubitus ulcer: Qualified Codes: L89.152 - Pressure ulcer of sacral region, stage 2 (3) Chronic respiratory failure: Qualified Codes: J96.11 - Chronic respiratory failure with hypoxia Janes Ervin MD Dec 22, 2017 08:18
[2017-12-22] MEDS: DIPHENOXYLATE/ATROPINE 2.5 MG/0.025 MG/5 ML CUP PO PRN ×2 (08:29→17:00)
[2017-12-22] MEDS: CALCIUM/VITAMIN D 250 MG/125 U TAB PEG SCH ×3 (08:29→17:00)
[2017-12-22] MEDS: LANSOPRAZOLE SOLUTAB 30 MG TAB NG SCH (08:30)
[2017-12-22] MEDS: LINEZOLID 600 MG TAB PO SCH ×2 (08:30→21:36)
[2017-12-22] MEDS: LISINOPRIL 5 MG TAB PEG SCH (08:30)
[2017-12-22] MEDS: LACTOBACILLUS ACIDOPHILUS TAB PEG SCH ×2 (08:30→21:36)
[2017-12-22] MEDS: CHOLECALCIFEROL (VIT D3) 5000 UNIT CAP PEG SCH (08:31)
[2017-12-22] MEDS: ASPIRIN 325 MG TAB DOBHOFF SCH (08:31)
[2017-12-22 08:33] LABS: BANDS 7 % (0-6); LYMPHOCYTES 19 % (9-44); MONOCYTES 8 % (0-8); MYELOCYTES 2 % (0-0); NEUTROPHIL # MANUAL DIFF 6.6 TH/MM3 (1.8-7.7); POLYS (SEG NEUTROPHILS) 58 % (16-70)
[2017-12-22] MEDS: BACITRACIN TOP OINT 15 GM TUBE TOPICAL SCH ×2 (08:34→21:36)
[2017-12-22] MEDS: FUROSEMIDE 40 MG TAB PO SCH (08:34)
--- NOTE | 2017-12-22 10:20 | HHI.IDPN ---
Subjective Subjective Remarks Patient is a 77-year-old female initially admitted to the hospital April 21 and she was diagnosed to have left hip fracture as well as DKA. She underwent repair of her fracture, and while in the hospital recovering she had a large left MCA CVA. She has required ventilatory support, and ended up getting a tracheostomy on May 15, and a PEG placement May 16. Patient was successfully weaned from the vent. Her neurological status had some improvement , and she has been awake but only intermittently following commands. Patient has been treated for multiple infections including pneumonia and UTI. She has had infections with MDR, including resistant Pseudomonas as well as VRE. About 2 days ago, she had an episode of vomiting and witnessed aspiration. She has been febrile, and her WBC had gone up to 17,000. Chest x-ray done showed some no infiltrates especially on the right side. She also has required BiPAP. Infectious disease consultation has been requested again to assist with management of her aspiration pneumonia. Discuss the case with her RN. Her temperature is currently 100.9. Hemodynamics are stable. She is back on tube feedings, and she is on BiPAP with good saturation. She is currently on Zosyn and Levaquin. Her chest x-ray today showed some stable infiltrates and possibly some mild improvement. Notes reviewed Temps low grade 99+ On T-piece Awake, looking but not following Sputum C/S pending Antibiotics Zosyn Levaquin Zyvox Current Medications Medications (Trade) Dose Ordered Sig/Zeferino Route Start Time Stop Time Status Last Admin (Narcan Inj) 0.4 mg UNSCH PRN IV 04/20/17 17:15 (Aspirin) 325 mg DAILY DOBHOFF 04/27/17 09:00 12/22/17 08:31 (Prevacid Odt) 30 mg DAILY NG 05/08/17 09:00 12/22/17 08:30 (Nitroglycerin 2% Oint) 2 inch Q6H PRN TOPICAL 06/21/17 08:00 06/30/17 14:37 (Heparin Inj) 5,000 units Q8HR SQ 07/15/17 08:00 12/22/17 05:25 (Pill Splitter) 1 ea UNSCH PRN OTHER 09/05/17 11:00 (Apresoline) 10 mg Q8HR PEG 09/24/17 14:00 12/22/17 05:25 (Norvasc) 10 mg DAILY PEG 10/04/17 09:00 12/22/17 08:30 (Oscal-D 250-125) 250 mg TID PEG 10/03/17 13:00 12/22/17 08:29 (Vitamin D3) 5,000 units DAILY PEG 10/04/17 09:00 12/22/17 08:31 (Catapres) 0.1 mg Q6H PRN PEG 10/03/17 12:30 11/27/17 00:23 (Lactinex) 1 tab Q12HR PEG 10/03/17 21:00 12/22/17 08:30 (Miralax) 17 gm DAILY PRN PEG 10/03/17 12:00 (Beneprotein Powder) 1 pack TID PRN G-TUBE 10/03/17 12:00 (Albuterol Neb) 2.5 mg Q2HR NEB PRN NEB 10/03/17 21:45 12/20/17 05:22 (Tylenol 650 Mg/ 20 ml Liq) 650 mg Q6H PRN PEG 10/26/17 06:45 12/15/17 05:51 (Roxicodone Intensol Liq) 5 mg Q6H PRN PO 10/29/17 11:00 12/21/17 10:05 (D50w (Vial) Inj) 50 ml UNSCH PRN IV PUSH 11/04/17 12:30 12/08/17 12:27 (Glucagon Inj) 1 mg UNSCH PRN OTHER 11/04/17 12:30 (NovoLIN R SUPPLEMENTAL SCALE) 1 Q6H SQ 11/04/17 12:30 12/21/17 12:45 (Reglan Liq) 10 mg Q8HR PO 11/07/17 14:30 Future Hold 11/18/17 14:08 (Questran Light Pkt) 4 gm BID PRN PEG 11/12/17 13:30 12/19/17 09:47 (Prinivil) 5 mg DAILY PEG 11/23/17 09:00 12/22/17 08:30 (Lomotil 2.5-0.025 Mg Liq) 5 ml Q6H PRN PO 11/25/17 13:15 12/22/17 08:29 (Levemir Inj) 12 units Q12H SQ 12/03/17 00:00 12/22/17 00:31 (Lasix) 40 mg DAILY PO 12/04/17 09:00 Future hold 12/22/17 08:34 (Zofran Inj) 4 mg Q6HR PRN IV PUSH 12/08/17 05:00 12/20/17 19:02 (Free Water) 250 ml Q6HR PO 12/13/17 18:00 12/22/17 08:36 (Tears Naturale Opth Soln) 1 drop Q8H PRN EACH EYE 12/19/17 19:30 Piperacillin Sod/ Tazobactam Sod 100 ml @ 200 mls/hr Q6H IV 12/20/17 17:00 12/22/17 08:36 (Baciguent Oint) 1 applic Q12HR TOPICAL 12/21/17 10:00 12/21/17 21:00 (Levaquin) 750 mg Q24H PO 12/21/17 18:00 12/21/17 17:43 (Zyvox) 600 mg Q12HR PO 12/21/17 21:00 12/22/17 08:30 (Lomotil 2.5-0.025 Mg Liq) 5 ml Q6H PRN PO 12/22/17 08:30 Lines Line sites with no e.o infection. Past Medical History CVA Hypertension Diabetes Past Surgical History S/P trach 05/2017 S/P PEG 05/2017 ORIF L hip Allergies: Coded Allergies: No Known Allergies (Unverified , 04/20/17) Objective . Vital Signs Date Time Temp Pulse Resp B/P (MAP) Pulse Ox O2 Delivery O2 Flow Rate FiO2 12/22/17 09:50 97 T-piece 8.00 35 12/22/17 04:00 98.3 80 20 142/75 (97) 96 12/22/17 02:06 96 35 12/22/17 00:00 98.0 78 16 121/60 (80) 93 12/21/17 21:52 95 35 12/21/17 20:00 92 Bi-Pap 35 T-Piece 12/21/17 20:00 98.9 71 22 120/59 (79) 95 12/21/17 19:00 78 22 116/63 (80) 93 12/21/17 18:00 70 24 120/64 (82) 95 12/21/17 17:00 66 26 120/54 (76) 92 12/21/17 16:34 98 35 12/21/17 16:00 80 24 110/54 (72) 96 12/21/17 15:00 77 26 113/49 (70) 97 12/21/17 14:00 63 26 132/56 (81) 97 12/21/17 13:00 68 28 120/60 (80) 96 12/21/17 12:00 99.8 67 22 111/56 (74) 98 12/21/17 11:05 26 12/21/17 11:00 74 26 127/64 (85) 98 . Laboratory Tests Test 12/20/17 16:25 12/21/17 09:11 12/22/17 06:55 White Blood Count 17.7 TH/MM3 12.2 TH/MM3 9.8 TH/MM3 Red Blood Count 2.88 MIL/MM3 2.83 MIL/MM3 2.91 MIL/MM3 Hemoglobin 9.6 GM/DL 9.4 GM/DL 9.9 GM/DL Hematocrit 28.1 % 27.5 % 28.2 % Mean Corpuscular Volume 97.6 FL 97.3 FL 96.9 FL Mean Corpuscular Hemoglobin 33.3 PG 33.2 PG 34.0 PG Mean Corpuscular Hemoglobin Concent 34.1 % 34.1 % 35.1 % Red Cell Distribution Width 13.6 % 13.8 % 13.8 % Platelet Count 347 TH/MM3 332 TH/MM3 356 TH/MM3 Mean Platelet Volume 9.2 FL 8.8 FL 8.5 FL Neutrophils (%) (Auto) 79.5 % 75.9 % 69.3 % Lymphocytes (%) (Auto) 13.7 % 14.2 % 16.2 % Monocytes (%) (Auto) 5.2 % 6.4 % 8.9 % Eosinophils (%) (Auto) 0.9 % 2.8 % 4.8 % Basophils (%) (Auto) 0.7 % 0.7 % 0.8 % Neutrophils # (Auto) 14.0 TH/MM3 9.3 TH/MM3 6.8 TH/MM3 Lymphocytes # (Auto) 2.4 TH/MM3 1.7 TH/MM3 1.6 TH/MM3 Monocytes # (Auto) 0.9 TH/MM3 0.8 TH/MM3 0.9 TH/MM3 Eosinophils # (Auto) 0.2 TH/MM3 0.3 TH/MM3 0.5 TH/MM3 Basophils # (Auto) 0.1 TH/MM3 0.1 TH/MM3 0.1 TH/MM3 CBC Comment AUTO DIFF DIFF FINAL AUTO DIFF Differential Total Cells Counted 100 100 Neutrophils % (Manual) 66 % 58 % Band Neutrophils % 16 % 7 % Lymphocytes % 12 % 19 % Monocytes % 6 % 8 % Neutrophils # (Manual) 14.5 TH/MM3 6.6 TH/MM3 Differential Comment FINAL DIFF MANUAL FINAL DIFF MANUAL Platelet Estimate NORMAL NORMAL Platelet Morphology Comment NORMAL NORMAL Red Cell Morphology Comment NORMAL Eosinophils % 6 % Myelocytes 2 % Laboratory Tests Test 12/20/17 16:25 12/20/17 20:44 12/21/17 09:16 12/22/17 06:55 Blood Urea Nitrogen 40 MG/DL 28 MG/DL 25 MG/DL Creatinine 0.73 MG/DL 0.71 MG/DL 0.57 MG/DL Random Glucose 144 MG/DL 124 MG/DL 90 MG/DL Calcium Level 9.4 MG/DL 9.0 MG/DL 8.8 MG/DL Sodium Level 131 MEQ/L 139 MEQ/L 139 MEQ/L Potassium Level 5.6 MEQ/L 5.1 MEQ/L 4.5 MEQ/L 4.1 MEQ/L Chloride Level 95 MEQ/L 103 MEQ/L 102 MEQ/L Carbon Dioxide Level 29.1 MEQ/L 30.2 MEQ/L 29.2 MEQ/L Anion Gap 7 MEQ/L 6 MEQ/L 8 MEQ/L Estimat Glomerular Filtration Rate 78 ML/MIN 80 ML/MIN 103 ML/MIN Lactic Acid Level 1.1 mmol/L Total Protein 6.8 GM/DL Albumin 2.5 GM/DL Magnesium Level 2.1 MG/DL Alkaline Phosphatase 169 U/L Aspartate Amino Transf (AST/SGOT) 22 U/L Alanine Aminotransferase (ALT/SGPT) 29 U/L Total Bilirubin 0.4 MG/DL Total Creatine Kinase 88 U/L Microbiology Date/Time Source Procedure Growth Status 12/21/17 16:30 Sputum Endotracheal Gram Stain - Final Resulted 12/21/17 16:30 Sputum Endotracheal Sputum Culture Pending Resulted Imaging Last Impressions Chest X-Ray 12/21/17 0600 Signed Impressions: Service Date/Time: Thursday, December 21, 2017 05:51 - CONCLUSION: Some improvement in the infiltrates bilaterally. Deangelo Wren Jr., MD Upper Extremity Ultrasound 11/04/17 0000 Signed Impressions: Service Date/Time: Saturday, November 04, 2017 09:57 - CONCLUSION: No thrombus observed. Subcutaneous edema noted. Deangelo Wren Jr., MD Abdomen X-Ray 11/04/17 0000 Signed Impressions: Service Date/Time: Saturday, November 04, 2017 11:58 - CONCLUSION: Gaseous distention of bowel loops could be ileus but unchanged. Benja Ramsey MD CT Angiography 11/01/17 0000 Signed Impressions: Service Date/Time: Wednesday, November 01, 2017 16:47 - CONCLUSION: No evidence for pulmonary embolism. Please see above. Choco Mustafa MD Thoracentesis 08/05/17 1535 Signed Impressions: Service Date/Time: Saturday, August 05, 2017 16:08 - CONCLUSION: Uncomplicated CT-guided thoracentesis. Sage Adler MD Chest Ultrasound 08/02/17 0000 Signed Impressions: Service Date/Time: Tuesday, August 01, 2017 22:06 - CONCLUSION: 1. Moderate right pleural effusion, as above. Alejo De La Vega MD Hip and Pelvis X-Ray 07/09/17 0000 Signed Impressions: Service Date/Time: Sunday, July 09, 2017 14:04 - CONCLUSION: Anatomic alignment. Ricardo Middleton MD FACR Liver Ultrasound 06/19/17 0000 Signed Impressions: Service Date/Time: June 13:20 - CONCLUSION: 1. Mildly increased echotexture of the liver characteristic of hepatic steatosis. 2. Gallbladder sludge. Obdulio Sam MD Head CT 05/15/17 0000 Signed Impressions: Service Date/Time: May 19:59 - CONCLUSION: 1. 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 2. No bleed or new/acute infarct. Obdulio Simms MD Gall Bladder Ultrasound 05/08/17 0000 Signed Impressions: Service Date/Time: May 08:23 - CONCLUSION: Focally unremarkable appearance of the gallbladder Obdulio Chun MD Abdomen/Pelvis CT 05/07/17 0000 Signed Impressions: Service Date/Time: Sunday, May 07, 2017 13:23 - CONCLUSION: 1. Large left pneumothorax. 2. Bilateral lower lobe consolidation and bilateral moderate size pleural effusions. 3. Significant soft tissue thickening of the right lateral chest wall and left gluteus muscle. 4. Mild ascites. The findings were called to Dr. Carney. Deangelo Zamora MD Chest CT 04/30/17 0000 Signed Impressions: Service Date/Time: Sunday, April 30, 2017 09:20 - CONCLUSION: 1. Bilateral pulmonary infiltrates more pronounced within the lower lobes with tiny bilateral pleural effusions. Material seen filling the lower lobe bronchi bilaterally either related to purulent material or perhaps mucus plugging. Deangelo Wren Jr., MD Carotid Artery Ultrasound 04/24/17 0000 Signed Impressions: Service Date/Time: April 09:45 - CONCLUSION: 1. No hemodynamically significant carotid artery stenosis. Arnie Middleton MD Hip X-Ray 04/21/17 0000 Signed Impressions: Service Date/Time: Friday, April 21, 2017 11:36 - CONCLUSION: Fluoroscopic images during placement of intramedullary siomara left femur. Benja Ramsey MD Physical Exam GENERAL: Awake, focusing, but not swallowing, looks comfortable on T piece SKIN: Warm and dry. No generalized rash, no ecchymoses and no evidence of embolic lesions. HEAD: Atraumatic. Normocephalic. No temporal wasting, or tenderness. EYES: Garrison conjunctiva. No petechia or hemorrhage. Pupils equal, round and reactive to light. No scleral icterus. No injection or drainage. EARS, NOSE AND THROAT: Nose without bleeding or purulent nasal discharge. No sinus tenderness. Mucous membranes pink and moist. NECK: Trachea midline. Trach site ok. Supple and not tender, no meningeal signs CARDIOVASCULAR: Regular rate and rhythm. Soft heart sounds. RESPIRATORY: has bilateral rhonchi worse on R than L ABDOMEN: Soft, mildly distended, some grimacing during palpation. Bowel sounds present and normoactive. PEG site ok EXTREMITIES: No clubbing, cyanosis, or edema. Well perfused and warm. NEUROLOGICAL: Awake and focusing. Not following. 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 Fracture L hip S/P ORIF RECOMMENDATION Follow sputum C/S Continue Zosyn and Levaquin Continue Zyvox for MRSA coverage Adjust Abx once C/s finalized I will determine course of Abx once cultures finalized Monitor progress Nelly Michaud MD Dec 22, 2017 10:20
[2017-12-22] MEDS: LEVOFLOXACIN 750 MG TAB PO SCH (17:00)
--- NOTE | 2017-12-22 21:12 | HHI.PR ---
Subjective Remarks No events overnight. Patient is on TP's with 40% FIO2. . Tolerating tube feeds. Tolerates TF No fever Small amount of thick mucous Trach downsized to #6 Tolerates well. Required BIPAP over the weekend, now on trach collar Objective Vital Signs Vital Signs Date Time Temp Pulse Resp B/P (MAP) Pulse Ox O2 Delivery O2 Flow Rate FiO2 12/22/17 20:54 97 T-piece 8.00 40 12/22/17 20:00 97.7 63 18 156/48 (84) 99 12/22/17 16:00 98.4 70 14 136/50 (78) 99 12/22/17 11:26 97 T-Piece 45 12/22/17 09:50 97 T-piece 8.00 35 12/22/17 08:00 98.9 73 14 143/64 (90) 97 12/22/17 04:00 98.3 80 20 142/75 (97) 96 12/22/17 02:06 96 35 12/22/17 00:00 98.0 78 16 121/60 (80) 93 12/21/17 21:52 95 35 I/O 12/21/17 12/21/17 12/21/17 12/22/17 12/22/17 12/22/17 07:00 15:00 23:00 07:00 15:00 23:00 Intake Total 1260 ml 860 ml 1040 ml 2116 ml 1100 ml Output Total 900 ml 0 ml 300.0 ml 0 ml Balance 360 ml 860 ml 740.0 ml 2116 ml 0 ml 1100 ml Intake Oral 0 ml IV Total 200 ml 860 ml 200 ml Tube Feeding 460 ml 540 ml 1050 ml 600 ml Other 600 ml 500 ml 866 ml 500 ml Output Urine Total 900 ml 300 ml Tube Feeding Residual Discard 0 ml 0 ml 0 ml 0 ml # Voids 2 3 5 # Bowel Movements 0 5 3 5 Result Diagram: 12/22/1765412/22/17 0655 Objective Remarks GENERAL: Elderly female,NAD SKIN: Warm and dry. HEAD: Normocephalic. EYES: No scleral icterus. No injection or drainage. NECK: Supple, trachea midline. No JVD or lymphadenopathy. + trach CARDIOVASCULAR: Regular rate and rhythm without murmurs, gallops, or rubs. RESPIRATORY: Breath sounds equal bilaterally. No accessory muscle use. GASTROINTESTINAL: Abdomen soft, non-tender, nondistended. MUSCULOSKELETAL: No cyanosis, or edema. BACK: Nontender without obvious deformity. No CVA tenderness. A/P Assessment and Plan Chronic resp failure, ,S/P Trach CVA Pneumonia Calcified Granuloma LLL Pseudomonas Tracheobronchitis, PLAN: Continue with TP's, keep sats >92% Bronchodilators, Pulm toilet, trach care CT chest 11/01: No PE,adenopathy in the right paratracheal, subcarinal and hilar regions with numerous prominent lymph nodes seen. Cont TF- GI/DVT prophylaxis Stable from pulm standpoint. [facility] RN at [facility],Chris Hester MD Dec 22, 2017 21:12
[2017-12-23] VITALS (8 sets, daily range): BP systolic 130–145; BP diastolic 46–75; PULSE 64–72; RESP 14–18; TEMP 97.8–98.7; O2SAT 97–99
[2017-12-23] MEDS: hydrALAZINE HCL 10 MG TAB PEG SCH ×3 (05:38→21:05)
[2017-12-23] MEDS: PIPERACIL-TAZO 4.5 GM PREMIX 100 ML IV SCH ×4 (05:38→23:13)
[2017-12-23] MEDS: HEPARIN SODIUM - SQ 10,000 UNITS/ML VIAL SQ SCH ×3 (05:39→21:06)
[2017-12-23] MEDS: INSULIN NovoLIN REGULAR SUPPLEMENTAL SCALE SQ SCH ×4 (05:39→23:46)
[2017-12-23] MEDS: FREE WATER PO SCH ×4 (05:39→23:13)
[2017-12-23] MEDS: CHOLECALCIFEROL (VIT D3) 5000 UNIT CAP PEG SCH (07:38)
[2017-12-23] MEDS: LACTOBACILLUS ACIDOPHILUS TAB PEG SCH ×2 (07:38→21:04)
[2017-12-23] MEDS: CALCIUM/VITAMIN D 250 MG/125 U TAB PEG SCH ×3 (07:39→16:13)
[2017-12-23] MEDS: LANSOPRAZOLE SOLUTAB 30 MG TAB NG SCH (07:39)
[2017-12-23] MEDS: LISINOPRIL 5 MG TAB PEG SCH (07:39)
[2017-12-23] MEDS: FUROSEMIDE 40 MG TAB PO SCH (07:39)
[2017-12-23] MEDS: LINEZOLID 600 MG TAB PO SCH ×2 (07:39→21:05)
[2017-12-23] MEDS: ASPIRIN 325 MG TAB DOBHOFF SCH (07:40)
[2017-12-23] MEDS: DIPHENOXYLATE/ATROPINE 2.5 MG/0.025 MG/5 ML CUP PO PRN ×3 (07:40→21:05)
[2017-12-23] MEDS: BACITRACIN TOP OINT 15 GM TUBE TOPICAL SCH ×2 (07:40→21:05)
--- NOTE | 2017-12-23 09:56 | HHI.PR ---
Subjective Remarks Follow up aspiration, diarrhea. Patient continues to have very frequent stools. No improvement with Lomotil. Respiratory status improved. Objective Vitals Vital Signs Date Time Temp Pulse Resp B/P (MAP) Pulse Ox O2 Delivery O2 Flow Rate FiO2 12/23/17 08:52 98 T-Piece 45 12/23/17 07:05 98.0 67 14 145/74 (97) 99 12/23/17 04:00 98.6 72 16 145/74 (97) 99 12/23/17 00:00 97.8 70 18 130/46 (74) 98 12/22/17 21:20 98 T-Piece 45 12/22/17 20:54 97 T-piece 8.00 40 12/22/17 20:00 97.7 63 18 156/48 (84) 99 12/22/17 16:00 98.4 70 14 136/50 (78) 99 12/22/17 11:26 97 T-Piece 45 I/O 12/22/17 12/22/17 12/22/17 12/23/17 12/23/17 12/23/17 07:00 15:00 23:00 07:00 15:00 23:00 Intake Total 2116 ml 100 ml 1200 ml 1233 ml Output Total 0 ml 0 ml 400 ml 0 ml Balance 2116 ml 100 ml 1200 ml 833 ml 0 ml Intake Oral 0 ml IV Total 200 ml 100 ml 100 ml 200 ml Tube Feeding 1050 ml 600 ml 533 ml Other 866 ml 500 ml 500 ml Output Urine Total 400 ml Tube Feeding Residual Discard 0 ml 0 ml 0 ml # Voids 3 5 2 # Bowel Movements 3 5 1 Result Diagram: 12/22/1765412/22/17 0655 Imaging Last Impressions Chest X-Ray 12/21/17 06 Signed Impressions: Service Date/Time: Thursday, December 21, 2017 05:51 - CONCLUSION: Some improvement in the infiltrates bilaterally. Deangelo Wren Jr., MD Upper Extremity Ultrasound 11/04/17 Signed Impressions: Service Date/Time: Saturday, November 04, 2017 09:57 - CONCLUSION: No thrombus observed. Subcutaneous edema noted. Deangelo Wren Jr., MD Abdomen X-Ray 11/04/17 Signed Impressions: Service Date/Time: Saturday, November 04, 2017 11:58 - CONCLUSION: Gaseous distention of bowel loops could be ileus but unchanged. Benja Ramsey MD CT Angiography 11/01/17 0000 Signed Impressions: Service Date/Time: Wednesday, November 01, 2017 16:47 - CONCLUSION: No evidence for pulmonary embolism. Please see above. Choco Mustafa MD Thoracentesis 08/05/17 1535 Signed Impressions: Service Date/Time: Saturday, August 05, 2017 16:08 - CONCLUSION: Uncomplicated CT-guided thoracentesis. Sage Adler MD Chest Ultrasound 08/02/17 0000 Signed Impressions: Service Date/Time: Tuesday, August 01, 2017 22:06 - CONCLUSION: 1. Moderate right pleural effusion, as above. Alejo De La Vega MD Hip and Pelvis X-Ray 07/09/17 0000 Signed Impressions: Service Date/Time: Sunday, July 09, 2017 14:04 - CONCLUSION: Anatomic alignment. Ricardo Middleton MD FACR Liver Ultrasound 06/19/17 0000 Signed Impressions: Service Date/Time: June 13:20 - CONCLUSION: 1. Mildly increased echotexture of the liver characteristic of hepatic steatosis. 2. Gallbladder sludge. Obdulio Sam MD Head CT 05/15/17 0000 Signed Impressions: Service Date/Time: May 19:59 - CONCLUSION: 1. 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 2. No bleed or new/acute infarct. Obdulio Simms MD Gall Bladder Ultrasound 05/08/17 0000 Signed Impressions: Service Date/Time: May 08:23 - CONCLUSION: Focally unremarkable appearance of the gallbladder Obdulio Chun MD Abdomen/Pelvis CT 05/07/17 0000 Signed Impressions: Service Date/Time: Sunday, May 07, 2017 13:23 - CONCLUSION: 1. Large left pneumothorax. 2. Bilateral lower lobe consolidation and bilateral moderate size pleural effusions. 3. Significant soft tissue thickening of the right lateral chest wall and left gluteus muscle. 4. Mild ascites. The findings were called to Dr. Carney. Deangelo Zamora MD Chest CT 04/30/17 0000 Signed Impressions: Service Date/Time: Sunday, April 30, 2017 09:20 - CONCLUSION: 1. Bilateral pulmonary infiltrates more pronounced within the lower lobes with tiny bilateral pleural effusions. Material seen filling the lower lobe bronchi bilaterally either related to purulent material or perhaps mucus plugging. Deangelo Wren Jr., MD Carotid Artery Ultrasound 04/24/17 0000 Signed Impressions: Service Date/Time: April 09:45 - CONCLUSION: 1. No hemodynamically significant carotid artery stenosis. Arnie Middleton MD Hip X-Ray 04/21/17 0000 Signed Impressions: Service Date/Time: Friday, April 21, 2017 11:36 - CONCLUSION: Fluoroscopic images during placement of intramedullary siomara left femur. Benja Ramsey MD Objective Remarks General: Elderly female in no acute distress. Left wrist in soft restraint. Heart: Regular rate and rhythm. No murmur. Lungs: Scattered rhonchi. Breathing is nonlabored. Abdomen: Soft, nontender, nondistended. Small area of erythema surrounding a central wound in the LUQ. Minimal drainage at this time. Extremities: No lower extremity edema. Psych: Does not respond to verbal stimuli. Procedures PEG tube trach 05/15/17 and PEG 05/16/17 Urinary Catheter: No Vascular Central Line Catheter: No A/P Problem List: (1) Acute ischemic left middle cerebral artery (MCA) stroke ICD Code: I63.512 - Cerebral infarction due to unspecified occlusion or stenosis of left middle cerebral artery Status: Acute (2) Acute respiratory failure ICD Code: J96.00 - Acute respiratory failure, unspecified whether with hypoxia or hypercapnia (3) Right hemiplegia ICD Code: G81.91 - Hemiplegia, unspecified affecting right dominant side Status: Acute (4) Sacral decubitus ulcer ICD Code: L89.159 - Pressure ulcer of sacral region, unspecified stage Status: Chronic (5) HCAP (healthcare-associated pneumonia) ICD Code: J18.9 - Pneumonia, unspecified organism Status: Acute (6) 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 ICD Code: A49.8 - Other bacterial infections of unspecified site; Z16.24 - Resistance to multiple antibiotics Status: Acute (7) CVA (cerebral vascular accident) ICD Code: I63.9 - Cerebral infarction, unspecified Status: Chronic (8) Chronic respiratory failure ICD Code: J96.10 - Chronic respiratory failure, unspecified whether with hypoxia or hypercapnia Status: Chronic Assessment and Plan 1. Respiratory failure, chronic tracheostomy: Continue pulmonary toilet, trach care. Duoneb as needed. Trach management per pulmonology. On T-piece. No longer requiring BiPAP. 2. Urinary retention: Resolved. 3. UTI: Urine culture grew Aerococcus. Completed course of Augmentin. 4. Left MCA stroke: 5.5 mm of [id number] subfalcine herniation, diagnosed . Was not a candidate for thrombolysis at the time. Neurologic condition remained poor. She has persistent right-sided hemiparesis. Neurology and neurosurgery have signed off. Continue daily aspirin. 5. Aspiration pneumonia: CXR shows patchy infiltrates. Patient had witnessed aspiration. Now on BiPAP. Continue Levaquin, Zosyn. Appreciate infectious disease recommendations. 6. Hypertension: Continue Lasix, lisinopril, amlodipine. 7. Chronic systolic congestive heart failure: Echocardiogram 10/06/17 showed ejection fraction 25-30%. Continue Lasix. 8. Large left pneumothorax: Resolved. 9. Hepatitis C: LFTs normalized. 10. Diabetes mellitus: Patient initially presented with DKA. Continue Levemir. Monitor Accu-Cheks and cover with sliding scale insulin. 11. FEN: Glucerna per PEG tube. Tube feeds held following aspiration. Restart at lower rate and gradually increase to goal. Continue free water flushes. 12. Loose stools: C. difficile negative on multiple occasions, most recently . Continue Lactinex. Continue Questran. Likely secondary to tube feeds. Increased frequency of loose stools reported by nursing. Continue Lomotil. Consult GI. 13. Anal fissure: Continue wound care. 14. DVT prophylaxis: Heparin. 15. LUQ abdomen wound: Wound care. Bacitracin ointment. Problem Qualifiers (1) Acute respiratory failure: Qualified Codes: J96.00 - Acute respiratory failure, unspecified whether with hypoxia or hypercapnia (2) Sacral decubitus ulcer: Qualified Codes: L89.152 - Pressure ulcer of sacral region, stage 2 (3) Chronic respiratory failure: Qualified Codes: J96.11 - Chronic respiratory failure with hypoxia Janes Ervin MD Dec 23, 2017 09:56
--- NOTE | 2017-12-23 10:22 | HHI.IDPN ---
Subjective Subjective Remarks Patient is a 77-year-old female initially admitted to the hospital April 21 and she was diagnosed to have left hip fracture as well as DKA. She underwent repair of her fracture, and while in the hospital recovering she had a large left MCA CVA. She has required ventilatory support, and ended up getting a tracheostomy on May 15, and a PEG placement May 16. Patient was successfully weaned from the vent. Her neurological status had some improvement , and she has been awake but only intermittently following commands. Patient has been treated for multiple infections including pneumonia and UTI. She has had infections with MDR, including resistant Pseudomonas as well as VRE. About 2 days ago, she had an episode of vomiting and witnessed aspiration. She has been febrile, and her WBC had gone up to 17,000. Chest x-ray done showed some no infiltrates especially on the right side. She also has required BiPAP. Infectious disease consultation has been requested again to assist with management of her aspiration pneumonia. Discuss the case with her RN. Her temperature is currently 100.9. Hemodynamics are stable. She is back on tube feedings, and she is on BiPAP with good saturation. She is currently on Zosyn and Levaquin. Her chest x-ray today showed some stable infiltrates and possibly some mild improvement. Notes reviewed Discussed with RN Temps low grade 99+ On T-piece Awake, looking but not following Sputum C/S with GNR, ID pending WBC down to normal Has a lot of oral secretions, and moderate secretions from the trach, looks whitish in color Antibiotics Zosyn Levaquin Zyvox Current Medications Medications (Trade) Dose Ordered Sig/Zeferino Route Start Time Stop Time Status Last Admin (Narcan Inj) 0.4 mg UNSCH PRN IV 04/20/17 17:15 (Aspirin) 325 mg DAILY DOBHOFF 04/27/17 09:00 12/23/17 07:40 (Prevacid Odt) 30 mg DAILY NG 05/08/17 09:00 12/23/17 07:39 (Nitroglycerin 2% Oint) 2 inch Q6H PRN TOPICAL 06/21/17 08:00 06/30/17 14:37 (Heparin Inj) 5,000 units Q8HR SQ 07/15/17 08:00 12/23/17 05:39 (Pill Splitter) 1 ea UNSCH PRN OTHER 09/05/17 11:00 (Apresoline) 10 mg Q8HR PEG 09/24/17 14:00 12/23/17 05:38 (Norvasc) 10 mg DAILY PEG 10/04/17 09:00 12/23/17 07:39 (Oscal-D 250-125) 250 mg TID PEG 10/03/17 13:00 12/23/17 07:39 (Vitamin D3) 5,000 units DAILY PEG 10/04/17 09:00 12/23/17 07:38 (Catapres) 0.1 mg Q6H PRN PEG 10/03/17 12:30 11/27/17 00:23 (Lactinex) 1 tab Q12HR PEG 10/03/17 21:00 12/23/17 07:38 (Miralax) 17 gm DAILY PRN PEG 10/03/17 12:00 (Beneprotein Powder) 1 pack TID PRN G-TUBE 10/03/17 12:00 (Albuterol Neb) 2.5 mg Q2HR NEB PRN NEB 10/03/17 21:45 12/20/17 05:22 (Tylenol 650 Mg/ 20 ml Liq) 650 mg Q6H PRN PEG 10/26/17 06:45 12/15/17 05:51 (Roxicodone Intensol Liq) 5 mg Q6H PRN PO 10/29/17 11:00 12/21/17 10:05 (D50w (Vial) Inj) 50 ml UNSCH PRN IV PUSH 11/04/17 12:30 12/08/17 12:27 (Glucagon Inj) 1 mg UNSCH PRN OTHER 11/04/17 12:30 (NovoLIN R SUPPLEMENTAL SCALE) 1 Q6H SQ 11/04/17 12:30 12/23/17 05:39 (Reglan Liq) 10 mg Q8HR PO 11/07/17 14:30 Future Hold 11/18/17 14:08 (Questran Light Pkt) 4 gm BID PRN PEG 11/12/17 13:30 12/19/17 09:47 (Prinivil) 5 mg DAILY PEG 11/23/17 09:00 12/23/17 07:39 (Lomotil 2.5-0.025 Mg Liq) 5 ml Q6H PRN PO 11/25/17 13:15 12/23/17 07:40 (Levemir Inj) 12 units Q12H SQ 12/03/17 00:00 12/22/17 23:53 (Lasix) 40 mg DAILY PO 12/04/17 09:00 Future hold 12/23/17 07:39 (Zofran Inj) 4 mg Q6HR PRN IV PUSH 12/08/17 05:00 12/20/17 19:02 (Free Water) 250 ml Q6HR PO 12/13/17 18:00 12/23/17 05:39 (Tears Naturale Opth Soln) 1 drop Q8H PRN EACH EYE 12/19/17 19:30 Piperacillin Sod/ Tazobactam Sod 100 ml @ 200 mls/hr Q6H IV 12/20/17 17:00 12/23/17 07:44 (Baciguent Oint) 1 applic Q12HR TOPICAL 12/21/17 10:00 12/22/17 21:36 (Levaquin) 750 mg Q24H PO 12/21/17 18:00 12/22/17 17:00 (Zyvox) 600 mg Q12HR PO 12/21/17 21:00 12/23/17 07:39 (Lomotil 2.5-0.025 Mg Liq) 5 ml Q6H PRN PO 12/22/17 08:30 Lines Line sites with no e.o infection. Past Medical History CVA Hypertension Diabetes Past Surgical History S/P trach 05/2017 S/P PEG 05/2017 ORIF L hip Allergies: Coded Allergies: No Known Allergies (Unverified , 04/20/17) Objective . Vital Signs Date Time Temp Pulse Resp B/P (MAP) Pulse Ox O2 Delivery O2 Flow Rate FiO2 12/23/17 08:52 98 T-Piece 45 12/23/17 08:20 97 Trach Collar 8.00 40 12/23/17 07:05 98.0 67 14 145/74 (97) 99 12/23/17 04:00 98.6 72 16 145/74 (97) 99 12/23/17 00:00 97.8 70 18 130/46 (74) 98 12/22/17 21:20 98 T-Piece 45 12/22/17 20:54 97 T-piece 8.00 40 12/22/17 20:00 97.7 63 18 156/48 (84) 99 12/22/17 16:00 98.4 70 14 136/50 (78) 99 12/22/17 11:26 97 T-Piece 45 12/23/17 12/23/17 12/24/17 15:00 23:00 07:00 Output Total 0 ml Balance 0 ml Tube Feeding Residual Discard 0 ml . Laboratory Tests Test 12/22/17 06:55 White Blood Count 9.8 TH/MM3 Red Blood Count 2.91 MIL/MM3 Hemoglobin 9.9 GM/DL Hematocrit 28.2 % Mean Corpuscular Volume 96.9 FL Mean Corpuscular Hemoglobin 34.0 PG Mean Corpuscular Hemoglobin Concent 35.1 % Red Cell Distribution Width 13.8 % Platelet Count 356 TH/MM3 Mean Platelet Volume 8.5 FL Neutrophils (%) (Auto) 69.3 % Lymphocytes (%) (Auto) 16.2 % Monocytes (%) (Auto) 8.9 % Eosinophils (%) (Auto) 4.8 % Basophils (%) (Auto) 0.8 % Neutrophils # (Auto) 6.8 TH/MM3 Lymphocytes # (Auto) 1.6 TH/MM3 Monocytes # (Auto) 0.9 TH/MM3 Eosinophils # (Auto) 0.5 TH/MM3 Basophils # (Auto) 0.1 TH/MM3 CBC Comment AUTO DIFF Differential Total Cells Counted 100 Neutrophils % (Manual) 58 % Band Neutrophils % 7 % Lymphocytes % 19 % Monocytes % 8 % Eosinophils % 6 % Neutrophils # (Manual) 6.6 TH/MM3 Myelocytes 2 % Differential Comment FINAL DIFF MANUAL Platelet Estimate NORMAL Platelet Morphology Comment NORMAL Laboratory Tests Test 12/22/17 06:55 Blood Urea Nitrogen 25 MG/DL Creatinine 0.57 MG/DL Random Glucose 90 MG/DL Calcium Level 8.8 MG/DL Sodium Level 139 MEQ/L Potassium Level 4.1 MEQ/L Chloride Level 102 MEQ/L Carbon Dioxide Level 29.2 MEQ/L Anion Gap 8 MEQ/L Estimat Glomerular Filtration Rate 103 ML/MIN Microbiology Date/Time Source Procedure Growth Status 12/21/17 16:30 Sputum Endotracheal Gram Stain - Final Resulted 12/21/17 16:30 Sputum Culture - Preliminary Gram Negative Juan Resulted Imaging Last Impressions Chest X-Ray 12/21/17 0600 Signed Impressions: Service Date/Time: Thursday, December 21, 2017 05:51 - CONCLUSION: Some improvement in the infiltrates bilaterally. Deangelo Wren Jr., MD Upper Extremity Ultrasound 11/04/17 0000 Signed Impressions: Service Date/Time: Saturday, November 04, 2017 09:57 - CONCLUSION: No thrombus observed. Subcutaneous edema noted. Deangelo Wren Jr., MD Abdomen X-Ray 11/04/17 0000 Signed Impressions: Service Date/Time: Saturday, November 04, 2017 11:58 - CONCLUSION: Gaseous distention of bowel loops could be ileus but unchanged. Benja Ramsey MD CT Angiography 11/01/17 0000 Signed Impressions: Service Date/Time: Wednesday, November 01, 2017 16:47 - CONCLUSION: No evidence for pulmonary embolism. Please see above. Choco Mustafa MD Thoracentesis 08/05/17 1535 Signed Impressions: Service Date/Time: Saturday, August 05, 2017 16:08 - CONCLUSION: Uncomplicated CT-guided thoracentesis. Sage Adler MD Chest Ultrasound 08/02/17 0000 Signed Impressions: Service Date/Time: Tuesday, August 01, 2017 22:06 - CONCLUSION: 1. Moderate right pleural effusion, as above. Alejo De La Vega MD Hip and Pelvis X-Ray 07/09/17 0000 Signed Impressions: Service Date/Time: Sunday, July 09, 2017 14:04 - CONCLUSION: Anatomic alignment. Ricardo Middleton MD FACR Liver Ultrasound 06/19/17 0000 Signed Impressions: Service Date/Time: June 13:20 - CONCLUSION: 1. Mildly increased echotexture of the liver characteristic of hepatic steatosis. 2. Gallbladder sludge. Obdulio Sam MD Head CT 05/15/17 0000 Signed Impressions: Service Date/Time: , May 15, 2017 19:59 - CONCLUSION: 1. 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 2. No bleed or new/acute infarct. Obdulio Simms MD Gall Bladder Ultrasound 05/08/17 0000 Signed Impressions: Service Date/Time: May 08:23 - CONCLUSION: Focally unremarkable appearance of the gallbladder Obdulio Chun MD Abdomen/Pelvis CT 05/07/17 0000 Signed Impressions: Service Date/Time: Sunday, May 07, 2017 13:23 - CONCLUSION: 1. Large left pneumothorax. 2. Bilateral lower lobe consolidation and bilateral moderate size pleural effusions. 3. Significant soft tissue thickening of the right lateral chest wall and left gluteus muscle. 4. Mild ascites. The findings were called to Dr. Carney. Deangelo Zamora MD Chest CT 04/30/17 0000 Signed Impressions: Service Date/Time: Sunday, April 30, 2017 09:20 - CONCLUSION: 1. Bilateral pulmonary infiltrates more pronounced within the lower lobes with tiny bilateral pleural effusions. Material seen filling the lower lobe bronchi bilaterally either related to purulent material or perhaps mucus plugging. Deangelo Wren Jr., MD Carotid Artery Ultrasound 04/24/17 0000 Signed Impressions: Service Date/Time: April 09:45 - CONCLUSION: 1. No hemodynamically significant carotid artery stenosis. rAnie Middleton MD Hip X-Ray 04/21/17 0000 Signed Impressions: Service Date/Time: Friday, April 21, 2017 11:36 - CONCLUSION: Fluoroscopic images during placement of intramedullary juan left femur. Benja Ramsey MD Physical Exam GENERAL: Awake, focusing, but not following, looks comfortable on T piece SKIN: Warm and dry. No generalized rash, no ecchymoses and no evidence of embolic lesions. HEAD: Atraumatic. Normocephalic. No temporal wasting, or tenderness. EYES: [place] conjunctiva. No petechia or hemorrhage. Pupils equal, round and reactive to light. No scleral icterus. No injection or drainage. EARS, NOSE AND THROAT: Nose without bleeding or purulent nasal discharge. No sinus tenderness. Mucous membranes pink and moist. NECK: Trachea midline. Trach site ok. Supple and not tender, no meningeal signs CARDIOVASCULAR: Regular rate and rhythm. Soft heart sounds. RESPIRATORY: has bilateral rhonchi worse on R than L ABDOMEN: Soft, mildly distended, some grimacing during palpation. Bowel sounds present and normoactive. PEG site ok EXTREMITIES: No clubbing, cyanosis, or edema. Well perfused and warm. NEUROLOGICAL: Awake and focusing. Not following. 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 Fracture L hip S/P ORIF RECOMMENDATION Follow sputum C/S Continue Zosyn and Levaquin Stop Zyvox Adjust Abx once C/s finalized I will determine course of Abx once cultures finalized Monitor progress Discussed with Nelly Bland MD Dec 23, 2017 10:22
--- NOTE | 2017-12-23 13:16 | HHI.GIFU ---
Subjective Remarks This is a 77 yo female originally brought to the ER for AMS/Fall and found to have displaced intertrochanteric fracture, s/p left hip reduction and intramedullary nail fixation on 04/21/17. Subsequently she developed a large left MCA infarct. Pt has required prolonged mechanical ventilation. S/P tracheostomy. GI originally consulted for PEG tube placement. S/P EGD with peg tube placement (05/16/17), found a hiatal hernia. GI reconsulted for diarrhea. Pt reportedly has had chronic loose stools but last few days has developed increased frequency and volume of loose stool. No blood in stool or tarry stool. C diff 12/21 neg. She has been given lomotil, questran and the diarrhea persists. She is on linezolid, levaquin, and zosyn. Hx obtained from JOSIANE, GREGORY. Pt unable to provide hx. (Jessica Damon) Objective Vitals I&O Vital Signs Date Time Temp Pulse Resp B/P (MAP) Pulse Ox O2 Delivery O2 Flow Rate FiO2 12/23/17 08:52 98 T-Piece 45 12/23/17 08:20 97 T-piece 8.00 40 12/23/17 07:05 98.0 67 14 145/74 (97) 99 12/23/17 04:00 98.6 72 16 145/74 (97) 99 12/23/17 00:00 97.8 70 18 130/46 (74) 98 12/22/17 21:20 98 T-Piece 45 12/22/17 20:54 97 T-piece 8.00 40 12/22/17 20:00 97.7 63 18 156/48 (84) 99 12/22/17 16:00 98.4 70 14 136/50 (78) 99 I/O 12/22/17 12/22/17 12/22/17 12/23/17 12/23/17 12/23/17 07:00 15:00 23:00 07:00 15:00 23:00 Intake Total 2116 ml 100 ml 1200 ml 1233 ml Output Total 0 ml 0 ml 400 ml 0 ml Balance 2116 ml 100 ml 1200 ml 833 ml 0 ml Intake Oral 0 ml IV Total 200 ml 100 ml 100 ml 200 ml Tube Feeding 1050 ml 600 ml 533 ml Other 866 ml 500 ml 500 ml Output Urine Total 400 ml Tube Feeding Residual Discard 0 ml 0 ml 0 ml # Voids 3 5 2 # Bowel Movements 3 5 1 Laboratory Date/Time Source Procedure Growth Status 07/25/17 10:35 Blood Peripheral Aerobic Blood Culture - Final NO GROWTH IN 5 DAYS Complete 07/25/17 10:35 Blood Peripheral Anaerobic Blood Culture - Final NO GROWTH IN 5 DAYS Complete 08/05/17 14:25 Fluid Pleural Fluid Gram Stain - Final Complete 08/05/17 14:25 Fluid Pleural Fluid Body Fluid Culture - Final NO GROWTH IN 72 HRS.--AEROBICALLY OR ... Complete 05/29/17 17:15 Stool Stool Stool Occult Blood (JEFFREY) - Final HEMOCCULT NEGATIVE Complete 12/21/17 16:30 Sputum Endotracheal Gram Stain - Final Complete 12/21/17 16:30 Sputum Culture - Final Pseudomonas Aeruginosa Multi-Drug Resistant Complete 12/02/17 20:00 Urine Catheterized Urine Urine Culture - Final Pseudo Fluorescens/[place] Complete Imaging Last Impressions Chest X-Ray 12/21/17 0600 Signed Impressions: Service Date/Time: Thursday, December 21, 2017 05:51 - CONCLUSION: Some improvement in the infiltrates bilaterally. Deangelo Wren Jr., MD Upper Extremity Ultrasound 11/04/17 0000 Signed Impressions: Service Date/Time: Saturday, November 04, 2017 09:57 - CONCLUSION: No thrombus observed. Subcutaneous edema noted. Deangelo Wren Jr., MD Abdomen X-Ray 11/04/17 0000 Signed Impressions: Service Date/Time: Saturday, November 04, 2017 11:58 - CONCLUSION: Gaseous distention of bowel loops could be ileus but unchanged. Benja Ramsey MD CT Angiography 11/01/17 0000 Signed Impressions: Service Date/Time: Wednesday, November 01, 2017 16:47 - CONCLUSION: No evidence for pulmonary embolism. Please see above. Choco Mustafa MD Thoracentesis 08/05/17 1535 Signed Impressions: Service Date/Time: Saturday, August 05, 2017 16:08 - CONCLUSION: Uncomplicated CT-guided thoracentesis. Sage Adler MD Chest Ultrasound 08/02/17 0000 Signed Impressions: Service Date/Time: Tuesday, August 01, 2017 22:06 - CONCLUSION: 1. Moderate right pleural effusion, as above. Alejo De La Vega MD Hip and Pelvis X-Ray 07/09/17 0000 Signed Impressions: Service Date/Time: Sunday, July 09, 2017 14:04 - CONCLUSION: Anatomic alignment. Ricardo Middleton MD FACR Liver Ultrasound 06/19/17 0000 Signed Impressions: Service Date/Time: June 13:20 - CONCLUSION: 1. Mildly increased echotexture of the liver characteristic of hepatic steatosis. 2. Gallbladder sludge. Obdulio Sam MD Head CT 05/15/17 0000 Signed Impressions: Service Date/Time: May 19:59 - CONCLUSION: 1. 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 2. No bleed or new/acute infarct. Obdulio Simms MD Gall Bladder Ultrasound 05/08/17 0000 Signed Impressions: Service Date/Time: May 08:23 - CONCLUSION: Focally unremarkable appearance of the gallbladder Obdulio Chun MD Abdomen/Pelvis CT 05/07/17 0000 Signed Impressions: Service Date/Time: Sunday, May 07, 2017 13:23 - CONCLUSION: 1. Large left pneumothorax. 2. Bilateral lower lobe consolidation and bilateral moderate size pleural effusions. 3. Significant soft tissue thickening of the right lateral chest wall and left gluteus muscle. 4. Mild ascites. The findings were called to Dr. Carney. Deangelo Zamora MD Chest CT 04/30/17 0000 Signed Impressions: Service Date/Time: Sunday, April 30, 2017 09:20 - CONCLUSION: 1. Bilateral pulmonary infiltrates more pronounced within the lower lobes with tiny bilateral pleural effusions. Material seen filling the lower lobe bronchi bilaterally either related to purulent material or perhaps mucus plugging. Deangelo Wren Jr., MD Carotid Artery Ultrasound 04/24/17 0000 Signed Impressions: Service Date/Time: April 09:45 - CONCLUSION: 1. No hemodynamically significant carotid artery stenosis. Arnie Middleton MD Hip X-Ray 04/21/17 0000 Signed Impressions: Service Date/Time: Friday, April 21, 2017 11:36 - CONCLUSION: Fluoroscopic images during placement of intramedullary siomara left femur. Benja Ramsey MD Physical Exam HEENT: Normocephalic; atraumatic; no jaundice. trach to tpiece CHEST: Course breath sounds CARDIAC: RRR ABDOMEN: semifirm, no hepatosplenomegaly; bowel sounds are present in all four quadrants. PEG tube site without redness or swelling EXTREMITIES: no cyanosis or edema SKIN: Normal; no rash; no jaundice. 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 Brought to the ER for AMS/Fall and found to have displaced intertrochanteric fracture, s/p left hip reduction and intramedullary nail fixation on 04/21/17. Her hospitalization was complicated by a large left MCA infarct with diffuse edema throughout the left MCA distribution and she was not a candidate for intracranial intervention due to completed appearance of infarct. Pt has since been in the ICU and is requiring prolonged mechanical ventilation. S/P tracheostomy. S/P EGD with peg tube placement (05/16/17)---> 1. The upper, middle, and distal third of the esophagus were carefully inspected and no abnormalities were noted. The z-line was well seen at the GEJ. The endoscope was pushed into the fundus which was normal including a retroflexed view. The antrum, first and second part of the duodenum were unremarkable. 2. 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 Site without redness or swelling or drainage. 12/23/17 GI reconsulted for acute worsening of loose stool. c diff 12/21 neg. she is on linezolid, zosyn, levaquin. ID following PLAN: - stool studies - if above negative, consider imaging, colonoscopy - if diarrhea persists and above negative consider rechecking c diff as she is on mult abx - supportive care pt seen by myself and Dr Mims and this note is on his behalf (Jessica Damon) Physician Comments Patient seen and examined Agree with above Continue with current supportive care Monitor lab Most likely cause of diarrhea is going to be drug-induced certainly some of her antibiotics and it would be helpful to see if we can change or discontinue some of her medications (Gerson Mims MD) Jessica Damon Dec 23, 2017 13:16 Gerson Mims MD Dec 23, 2017 18:54
[2017-12-23] MEDS: INSULIN DETEMIR 100 UNITS/ML VIAL SQ SCH ×2 (13:21→23:14)
[2017-12-23] MEDS: LEVOFLOXACIN 750 MG TAB PO SCH (16:13)
--- NOTE | 2017-12-23 16:30 | PD.WCN.NOT ---
Wound Consult Description: Follow up for wound management Communicated with: Donna GUZMAN [facility],Agatha JENKINS,[facility] Recommendation: 1. Please continue current wound care orders 2. Please cleanse buttock area with incontinence barrier wipes and apply Calazime barrier cream BID and PRN and leave open to air 3. Apply skin prep to L Hallax 4. Continue to turn patient every 2 hours or PRN for comfort. 5. Please use one UltraSorb for moisture. Please use flat sheet for repositioning on specialty surface. Additional Information: Patient was seen today by typewriter ribbon winder and Agatha JENKINS,[facility].Patient resting in bed without visual distress. Blue heel protectors removed typewriter ribbon winder was able to visualized entire lower extremities.L Hallax has a stable intact firmly adhered black eschar.measuring 1.8 cm x 1.5cm.Periwound dry intact no erythema noted.Hallax was cleansed with normal saline and skin prep applied.Blue heel protectors reapplied for comfort.G-tube site was visualized by typewriter ribbon winder no drainage,erythema or odor present.Please continue most recent wound care orders Nandini Sanchez CRN Dec 23, 2017 16:30
--- NOTE | 2017-12-23 19:23 | HHI.PR ---
Subjective Remarks No events overnight. Patient is on TP's with 40% FIO2. . Tolerating tube feeds. Tolerates TF No fever Small amount of thick mucous Trach downsized to #6 Tolerates well. has diarrhoea Started Lomotil Objective Vital Signs Vital Signs Date Time Temp Pulse Resp B/P (MAP) Pulse Ox O2 Delivery O2 Flow Rate FiO2 12/23/17 15:54 98.7 68 14 130/60 (83) 99 12/23/17 12:00 98.0 68 14 134/69 (90) 99 12/23/17 08:52 98 T-Piece 45 12/23/17 08:20 97 T-piece 8.00 40 12/23/17 07:05 98.0 67 14 145/74 (97) 99 12/23/17 04:00 98.6 72 16 145/74 (97) 99 12/23/17 00:00 97.8 70 18 130/46 (74) 98 12/22/17 21:20 98 T-Piece 45 12/22/17 20:54 97 T-piece 8.00 40 12/22/17 20:00 97.7 63 18 156/48 (84) 99 I/O 12/22/17 12/22/17 12/22/17 12/23/17 12/23/17 12/23/17 07:00 15:00 23:00 07:00 15:00 23:00 Intake Total 2116 ml 100 ml 1200 ml 1233 ml 1100 ml Output Total 0 ml 0 ml 400 ml 0 ml Balance 2116 ml 100 ml 1200 ml 833 ml 0 ml 1100 ml Intake Oral 0 ml IV Total 200 ml 100 ml 100 ml 200 ml Tube Feeding 1050 ml 600 ml 533 ml 600 ml Other 866 ml 500 ml 500 ml 500 ml Output Urine Total 400 ml Tube Feeding Residual Discard 0 ml 0 ml 0 ml # Voids 3 5 2 3 # Bowel Movements 3 5 1 4 Result Diagram: 12/22/1755 12/22/17 0655 Objective Remarks GENERAL: Elderly female,NAD SKIN: Warm and dry. HEAD: Normocephalic. EYES: No scleral icterus. No injection or drainage. NECK: Supple, trachea midline. No JVD or lymphadenopathy. + trach CARDIOVASCULAR: Regular rate and rhythm without murmurs, gallops, or rubs. RESPIRATORY: Breath sounds equal bilaterally. No accessory muscle use. GASTROINTESTINAL: Abdomen soft, non-tender, nondistended. MUSCULOSKELETAL: No cyanosis, or edema. BACK: Nontender without obvious deformity. No CVA tenderness. A/P Assessment and Plan Chronic resp failure, ,S/P Trach CVA Pneumonia Calcified Granuloma LLL Pseudomonas Tracheobronchitis, PLAN: Continue with TP's, keep sats >92% Bronchodilators, Pulm toilet, trach care CT chest 11/01: No PE,adenopathy in the right paratracheal, subcarinal and hilar regions with numerous prominent lymph nodes seen. Cont TF- GI/DVT prophylaxis Stable from pulm standpoint. [facility] RN at [facility],Chris Hester MD Dec 23, 2017 19:23
[2017-12-24] VITALS (10 sets, daily range): BP systolic 110–155; BP diastolic 62–82; PULSE 61–92; RESP 14–17; TEMP 98–98.8; O2SAT 91–100
[2017-12-24] MEDS: FREE WATER PO SCH ×3 (06:00→16:34)
[2017-12-24] MEDS: hydrALAZINE HCL 10 MG TAB PEG SCH ×3 (06:08→22:10)
[2017-12-24] MEDS: HEPARIN SODIUM - SQ 10,000 UNITS/ML VIAL SQ SCH ×3 (06:09→22:11)
[2017-12-24] MEDS: PIPERACIL-TAZO 4.5 GM PREMIX 100 ML IV SCH ×4 (06:09→22:10)
[2017-12-24] MEDS: INSULIN NovoLIN REGULAR SUPPLEMENTAL SCALE SQ SCH ×3 (06:09→16:42)
[2017-12-24] MEDS: LACTOBACILLUS ACIDOPHILUS TAB PEG SCH ×2 (09:42→22:10)
[2017-12-24] MEDS: LISINOPRIL 5 MG TAB PEG SCH (09:42)
[2017-12-24] MEDS: CHOLECALCIFEROL (VIT D3) 5000 UNIT CAP PEG SCH (09:42)
[2017-12-24] MEDS: CALCIUM/VITAMIN D 250 MG/125 U TAB PEG SCH ×3 (09:42→16:33)
[2017-12-24] MEDS: ASPIRIN 325 MG TAB DOBHOFF SCH (09:42)
[2017-12-24] MEDS: FUROSEMIDE 40 MG TAB PO SCH (09:42)
[2017-12-24] MEDS: LANSOPRAZOLE SOLUTAB 30 MG TAB NG SCH (09:42)
[2017-12-24] MEDS: LINEZOLID 600 MG TAB PO SCH ×2 (09:42→22:11)
[2017-12-24] MEDS: BACITRACIN TOP OINT 15 GM TUBE TOPICAL SCH ×2 (09:43→21:00)
[2017-12-24] MEDS: RESP: COLISTIN 150 MG VIAL NEB SCH ×3 (10:30→23:38)
[2017-12-24] MEDS: DIPHENOXYLATE/ATROPINE 2.5 MG/0.025 MG/5 ML CUP PO PRN (10:36)
--- NOTE | 2017-12-24 11:10 | HHI.GIFU ---
Subjective Remarks Pt OOB to chair, getting breathing tx. per RN slightly improved diarrhea today , after giving lomotil around the clock. (Jessica Damon) Objective Vitals I&O Vital Signs Date Time Temp Pulse Resp B/P (MAP) Pulse Ox O2 Delivery O2 Flow Rate FiO2 12/24/17 10:53 100 T-piece 8.00 35 12/24/17 10:01 98.7 78 14 124/82 (96) 99 12/24/17 09:59 98 T-Piece 45 12/24/17 07:35 98 T-piece 40 12/24/17 04:00 98.6 61 17 137/70 (92) 99 12/24/17 00:00 98.1 67 16 125/66 (85) 99 12/23/17 20:49 97 T-piece 40 12/23/17 20:00 98.4 64 17 137/75 (95) 98 12/23/17 20:00 98 T-Piece 45 12/23/17 15:54 98.7 68 14 130/60 (83) 99 12/23/17 12:00 98.0 68 14 134/69 (90) 99 I/O 12/23/17 12/23/17 12/23/17 12/24/17 12/24/17 12/24/17 07:00 15:00 23:00 07:00 15:00 23:00 Intake Total 1233 ml 1100 ml 1875 ml Output Total 400 ml 0 ml 0 ml 0 ml Balance 833 ml 0 ml 1100 ml 1875 ml 0 ml IV Total 200 ml 100 ml Tube Feeding 533 ml 600 ml 1025 ml Other 500 ml 500 ml 750 ml Output Urine Total 400 ml Tube Feeding Residual Discard 0 ml 0 ml 0 ml # Voids 2 3 4 # Bowel Movements 1 4 3 Laboratory Laboratory Tests Test 12/24/17 10:15 Date/Time Source Procedure Growth Status 07/25/17 10:35 Blood Peripheral Aerobic Blood Culture - Final NO GROWTH IN 5 DAYS Complete 07/25/17 10:35 Blood Peripheral Anaerobic Blood Culture - Final NO GROWTH IN 5 DAYS Complete 08/05/17 14:25 Fluid Pleural Fluid Gram Stain - Final Complete 08/05/17 14:25 Fluid Pleural Fluid Body Fluid Culture - Final NO GROWTH IN 72 HRS.--AEROBICALLY OR ... Complete 12/23/17 17:00 Stool Stool Cryptosporidium Exam Pending Resulted 12/23/17 17:00 Stool Stool Stool Pus (JEFFREY) - Final NO WBC'S SEEN Resulted 12/23/17 17:00 Stool Stool Giardia Antigen (JEFFREY) Pending Resulted 12/21/17 16:30 Sputum Endotracheal Gram Stain - Final Complete 12/21/17 16:30 Sputum Culture - Final Pseudomonas Aeruginosa Multi-Drug Resistant Complete 12/02/17 20:00 Urine Catheterized Urine Urine Culture - Final Pseudo Fluorescens/[place] Complete Imaging Last Impressions Chest X-Ray 12/21/17 0600 Signed Impressions: Service Date/Time: Thursday, December 21, 2017 05:51 - CONCLUSION: Some improvement in the infiltrates bilaterally. Deangelo Wren Jr., MD Upper Extremity Ultrasound 11/04/17 0000 Signed Impressions: Service Date/Time: Saturday, November 04, 2017 09:57 - CONCLUSION: No thrombus observed. Subcutaneous edema noted. Deangelo Wren Jr., MD Abdomen X-Ray 11/04/17 0000 Signed Impressions: Service Date/Time: Saturday, November 04, 2017 11:58 - CONCLUSION: Gaseous distention of bowel loops could be ileus but unchanged. Benja Ramsey MD CT Angiography 11/01/17 0000 Signed Impressions: Service Date/Time: Wednesday, November 01, 2017 16:47 - CONCLUSION: No evidence for pulmonary embolism. Please see above. Choco Mustafa MD Thoracentesis 08/05/17 1535 Signed Impressions: Service Date/Time: Saturday, August 05, 2017 16:08 - CONCLUSION: Uncomplicated CT-guided thoracentesis. Sage Adler MD Chest Ultrasound 08/02/17 0000 Signed Impressions: Service Date/Time: Tuesday, August 01, 2017 22:06 - CONCLUSION: 1. Moderate right pleural effusion, as above. Alejo De La Vega MD Hip and Pelvis X-Ray 07/09/17 0000 Signed Impressions: Service Date/Time: Sunday, July 09, 2017 14:04 - CONCLUSION: Anatomic alignment. Ricardo Middleton MD FACR Liver Ultrasound 06/19/17 0000 Signed Impressions: Service Date/Time: June 13:20 - CONCLUSION: 1. Mildly increased echotexture of the liver characteristic of hepatic steatosis. 2. Gallbladder sludge. Obdulio Sam MD Head CT 05/15/17 0000 Signed Impressions: Service Date/Time: May 19:59 - CONCLUSION: 1. 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 2. No bleed or new/acute infarct. Obdulio Simms MD Gall Bladder Ultrasound 05/08/17 0000 Signed Impressions: Service Date/Time: May 08:23 - CONCLUSION: Focally unremarkable appearance of the gallbladder Obdulio Chun MD Abdomen/Pelvis CT 05/07/17 0000 Signed Impressions: Service Date/Time: Sunday, May 07, 2017 13:23 - CONCLUSION: 1. Large left pneumothorax. 2. Bilateral lower lobe consolidation and bilateral moderate size pleural effusions. 3. Significant soft tissue thickening of the right lateral chest wall and left gluteus muscle. 4. Mild ascites. The findings were called to Dr. Carney. Deangelo Zamora MD Chest CT 04/30/17 0000 Signed Impressions: Service Date/Time: Sunday, April 30, 2017 09:20 - CONCLUSION: 1. Bilateral pulmonary infiltrates more pronounced within the lower lobes with tiny bilateral pleural effusions. Material seen filling the lower lobe bronchi bilaterally either related to purulent material or perhaps mucus plugging. Deangelo Wren Jr., MD Carotid Artery Ultrasound 04/24/17 0000 Signed Impressions: Service Date/Time: April 09:45 - CONCLUSION: 1. No hemodynamically significant carotid artery stenosis. Arnie Middleton MD Hip X-Ray 04/21/17 0000 Signed Impressions: Service Date/Time: Friday, April 21, 2017 11:36 - CONCLUSION: Fluoroscopic images during placement of intramedullary siomara left femur. Benja Ramsey MD Physical Exam HEENT: Normocephalic; atraumatic; no jaundice. trach to tpiece CHEST: Course breath sounds CARDIAC: RRR ABDOMEN: semifirm, no hepatosplenomegaly; bowel sounds are present in all four quadrants. PEG tube site without redness or swelling EXTREMITIES: no cyanosis or edema SKIN: Normal; no rash; no jaundice. EDITORIAL PROJECT MANAGER: opens eyes,otherwise unresponsive (Jessica Damon EXECUTIVE RELATIONS SPECIALIST) Assessment and Plan Plan ASSESSMENT: - Dysphagia. Brought to the ER for AMS/Fall and found to have displaced intertrochanteric fracture, s/p left hip reduction and intramedullary nail fixation on 04/21/17. Her hospitalization was complicated by a large left MCA infarct with diffuse edema throughout the left MCA distribution and she was not a candidate for intracranial intervention due to completed appearance of infarct. Pt has since been in the ICU and is requiring prolonged mechanical ventilation. S/P tracheostomy. S/P EGD with peg tube placement (05/16/17)---> 1. The upper, middle, and distal third of the esophagus were carefully inspected and no abnormalities were noted. The z-line was well seen at the GEJ. The endoscope was pushed into the fundus which was normal including a retroflexed view. The antrum, first and second part of the duodenum were unremarkable. 2. A hiatal hernia Collision Mechanic recommends Glucerna 1.5 @ 45 mls/hr. Site without redness or swelling or drainage. 12/23/17 GI reconsulted for acute worsening of loose stool. c diff 12/21 neg. she is on linezolid, zosyn, levaquin. ID following 12/24/17 stool neg for enteric path, WBCs. ova & parasite, cryptosporidia, and giardia pending. PLAN: - consider d/c reglan - consider regularly scheduled cholestyramine - consider fiber supplement to add bulk - if diarrhea persists and above negative consider rechecking c diff as she is on mult abx - supportive care pt seen by myself and Dr Mims and this note is on his behalf (Jessica Damon) Physician Comments Patient seen and examined Agree with above Continue with current supportive care Monitor labs I have discontinued Reglan I have changed cholestyramine to be given [id number] And I have added fiber Further recommendations shall depend on her hospital course (Gerson Mims MD) Jessica Damon Dec 24, 2017 11:10 Gerson Mims MD Dec 24, 2017 21:09
[2017-12-24 11:18] LABS: AUTOMATED NEUTROPHIL # 7.2 TH/MM3 (1.8-7.7); BASOPHIL # 0.1 TH/MM3 (0-0.2); BASOPHIL % 1.1 % (0.0-2.0); EOSINOPHIL # 0.5 TH/MM3 (0-0.4); EOSINOPHIL % 4.3 % (0.0-4.0); HEMATOCRIT 29.3 % (35.0-46.0); LYMPH % 25.4 % (9.0-44.0); LYMPHOCYTE # 2.9 TH/MM3 (1.0-4.8); MEAN CELL VOLUME 97.8 FL (80.0-100.0); MEAN CORPUSCULAR HEMOGLOBIN 33.4 PG (27.0-34.0); MEAN CORPUSCULAR HGB CONC 34.1 % (32.0-36.0); MEAN PLATELET VOLUME 8.6 FL (7.0-11.0); MONO % 6.7 % (0.0-8.0); MONOCYTE # 0.8 TH/MM3 (0-0.9); NEUT % 62.5 % (16.0-70.0); PLATELET COUNT 413 TH/MM3 (150-450); RED CELL DISTRIBUTION WIDTH 13.3 % (11.6-17.2); WHITE BLOOD COUNT 11.6 TH/MM3 (4.0-11.0)
[2017-12-24 11:25] LABS: BICARBONATE 30.4 MEQ/L (21.0-32.0); CALCIUM 9.2 MG/DL (8.5-10.1); CREATININE 0.5 MG/DL (0.50-1.00)
[2017-12-24 11:56] LABS: BANDS 6 % (0-6); LYMPHOCYTES 23 % (9-44); MONOCYTES 1 % (0-8); MYELOCYTES 3 % (0-0); NEUTROPHIL # MANUAL DIFF 7.9 TH/MM3 (1.8-7.7); POLYS (SEG NEUTROPHILS) 59 % (16-70)
[2017-12-24 11:59] LABS: TOXIC GRANULATION 1+ (NORMAL)
[2017-12-24] MEDS: INSULIN DETEMIR 100 UNITS/ML VIAL SQ SCH (12:00)
--- NOTE | 2017-12-24 12:11 | HHI.IDPN ---
Subjective Subjective Remarks Patient is a 77-year-old female initially admitted to the hospital April 21 and she was diagnosed to have left hip fracture as well as DKA. She underwent repair of her fracture, and while in the hospital recovering she had a large left MCA CVA. She has required ventilatory support, and ended up getting a tracheostomy on May 15, and a PEG placement May 16. Patient was successfully weaned from the vent. Her neurological status had some improvement , and she has been awake but only intermittently following commands. Patient has been treated for multiple infections including pneumonia and UTI. She has had infections with MDR, including resistant Pseudomonas as well as VRE. About 2 days ago, she had an episode of vomiting and witnessed aspiration. She has been febrile, and her WBC had gone up to 17,000. Chest x-ray done showed some no infiltrates especially on the right side. She also has required BiPAP. Infectious disease consultation has been requested again to assist with management of her aspiration pneumonia. Discuss the case with her RN. Her temperature is currently 100.9. Hemodynamics are stable. She is back on tube feedings, and she is on BiPAP with good saturation. She is currently on Zosyn and Levaquin. Her chest x-ray today showed some stable infiltrates and possibly some mild improvement. Notes reviewed Discussed with RN Temps ok On T-piece Awake, looking but not following Sputum C/S with MDR PSAE WBC down to normal Antibiotics Zosyn Current Medications Medications (Trade) Dose Ordered Sig/Zeferino Route Start Time Stop Time Status Last Admin (Narcan Inj) 0.4 mg UNSCH PRN IV 04/20/17 17:15 (Aspirin) 325 mg DAILY DOBHOFF 04/27/17 09:00 12/24/17 09:42 (Prevacid Odt) 30 mg DAILY NG 05/08/17 09:00 12/24/17 09:42 (Nitroglycerin 2% Oint) 2 inch Q6H PRN TOPICAL 06/21/17 08:00 06/30/17 14:37 (Heparin Inj) 5,000 units Q8HR SQ 07/15/17 08:00 12/24/17 06:09 (Pill Splitter) 1 ea UNSCH PRN OTHER 09/05/17 11:00 (Apresoline) 10 mg Q8HR PEG 09/24/17 14:00 4/25/18 06:08 (Norvasc) 10 mg DAILY PEG 10/04/17 09:00 12/24/17 09:43 (Oscal-D 250-125) 250 mg TID PEG 10/03/17 13:00 12/24/17 09:42 (Vitamin D3) 5,000 units DAILY PEG 10/04/17 09:00 12/24/17 09:42 (Catapres) 0.1 mg Q6H PRN PEG 10/03/17 12:30 11/27/17 00:23 (Lactinex) 1 tab Q12HR PEG 10/03/17 21:00 12/24/17 09:42 (Miralax) 17 gm DAILY PRN PEG 10/03/17 12:00 (Beneprotein Powder) 1 pack TID PRN G-TUBE 10/03/17 12:00 (Albuterol Neb) 2.5 mg Q2HR NEB PRN NEB 10/03/17 21:45 12/20/17 05:22 (Tylenol 650 Mg/ 20 ml Liq) 650 mg Q6H PRN PEG 10/26/17 06:45 12/15/17 05:51 (Roxicodone Intensol Liq) 5 mg Q6H PRN PO 10/29/17 11:00 12/21/17 10:05 (D50w (Vial) Inj) 50 ml UNSCH PRN IV PUSH 11/04/17 12:30 12/08/17 12:27 (Glucagon Inj) 1 mg UNSCH PRN OTHER 11/04/17 12:30 (NovoLIN R SUPPLEMENTAL SCALE) 1 Q6H SQ 11/04/17 12:30 12/23/17 13:23 (Reglan Liq) 10 mg Q8HR PO 11/07/17 14:30 Future Hold 11/18/17 14:08 (Questran Light Pkt) 4 gm BID PRN PEG 11/12/17 13:30 12/19/17 09:47 (Prinivil) 5 mg DAILY PEG 11/23/17 09:00 12/24/17 09:42 (Lomotil 2.5-0.025 Mg Liq) 5 ml Q6H PRN PO 11/25/17 13:15 12/24/17 10:36 (Levemir Inj) 12 units Q12H SQ 12/03/17 00:00 12/23/17 23:14 (Lasix) 40 mg DAILY PO 12/04/17 09:00 Future hold 12/24/17 09:42 (Zofran Inj) 4 mg Q6HR PRN IV PUSH 12/08/17 05:00 12/20/17 19:02 (Free Water) 250 ml Q6HR PO 12/13/17 18:00 12/24/17 06:00 (Tears Naturale Opth Soln) 1 drop Q8H PRN EACH EYE 12/19/17 19:30 Piperacillin Sod/ Tazobactam Sod 100 ml @ 200 mls/hr Q6H IV 12/20/17 17:00 12/24/17 09:43 (Baciguent Oint) 1 applic Q12HR TOPICAL 12/21/17 10:00 12/24/17 09:43 (Zyvox) 600 mg Q12HR PO 12/21/17 21:00 12/24/17 09:42 (Lomotil 2.5-0.025 Mg Liq) 5 ml Q6H PRN PO 12/22/17 08:30 (Coly-Mycin M Neb) 75 mg Q8HR NEB NEB 12/24/17 10:00 12/31/17 09:59 12/24/17 10:30 Lines Line sites with no e.o infection. Past Medical History CVA Hypertension Diabetes Past Surgical History S/P trach 05/2017 S/P PEG 05/2017 ORIF L hip Allergies: Coded Allergies: No Known Allergies (Unverified , 04/20/17) Objective . Vital Signs Date Time Temp Pulse Resp B/P (MAP) Pulse Ox O2 Delivery O2 Flow Rate FiO2 12/24/17 11:18 98.0 65 14 110/70 (83) 99 12/24/17 10:53 100 T-piece 8.00 35 12/24/17 10:01 98.7 78 14 124/82 (96) 99 12/24/17 09:59 98 T-Piece 45 12/24/17 07:35 98 T-piece 40 12/24/17 04:00 98.6 61 17 137/70 (92) 99 12/24/17 00:00 98.1 67 16 125/66 (85) 99 12/23/17 20:49 97 T-piece 40 12/23/17 20:00 98.4 64 17 137/75 (95) 98 12/23/17 20:00 98 T-Piece 45 12/23/17 15:54 98.7 68 14 130/60 (83) 99 12/24/17 12/24/17 12/25/17 15:00 23:00 07:00 Output Total 0 ml Balance 0 ml Tube Feeding Residual Discard 0 ml . Laboratory Tests Test 12/24/17 10:15 White Blood Count 11.6 TH/MM3 Red Blood Count 3.00 MIL/MM3 Hemoglobin 10.0 GM/DL Hematocrit 29.3 % Mean Corpuscular Volume 97.8 FL Mean Corpuscular Hemoglobin 33.4 PG Mean Corpuscular Hemoglobin Concent 34.1 % Red Cell Distribution Width 13.3 % Platelet Count 413 TH/MM3 Mean Platelet Volume 8.6 FL Neutrophils (%) (Auto) 62.5 % Lymphocytes (%) (Auto) 25.4 % Monocytes (%) (Auto) 6.7 % Eosinophils (%) (Auto) 4.3 % Basophils (%) (Auto) 1.1 % Neutrophils # (Auto) 7.2 TH/MM3 Lymphocytes # (Auto) 2.9 TH/MM3 Monocytes # (Auto) 0.8 TH/MM3 Eosinophils # (Auto) 0.5 TH/MM3 Basophils # (Auto) 0.1 TH/MM3 CBC Comment AUTO DIFF Differential Total Cells Counted 100 Neutrophils % (Manual) 59 % Band Neutrophils % 6 % Lymphocytes % 23 % Monocytes % 1 % Eosinophils % 8 % Neutrophils # (Manual) 7.9 TH/MM3 Myelocytes 3 % Differential Comment FINAL DIFF MANUAL Toxic Granulation 1+ Platelet Estimate HIGH Platelet Morphology Comment NORMAL Laboratory Tests Test 12/24/17 10:15 Blood Urea Nitrogen 17 MG/DL Creatinine 0.50 MG/DL Random Glucose 50 MG/DL Calcium Level 9.2 MG/DL Sodium Level 140 MEQ/L Potassium Level 3.6 MEQ/L Chloride Level 102 MEQ/L Carbon Dioxide Level 30.4 MEQ/L Anion Gap 8 MEQ/L Estimat Glomerular Filtration Rate 120 ML/MIN Microbiology Date/Time Source Procedure Growth Status 12/23/17 17:00 Stool Stool Cryptosporidium Exam Pending Resulted 12/23/17 17:00 Stool Stool Stool Pus (JEFFREY) - Final NO WBC'S SEEN Resulted 12/23/17 17:00 Stool Stool Giardia Antigen (JEFFREY) Pending Resulted 12/23/17 17:00 Stool Stool - Final NO ENTERIC PATHOGENS DETECTED BY PCR... Complete 12/21/17 16:30 Sputum Endotracheal Gram Stain - Final Complete 12/21/17 16:30 Sputum Culture - Final Pseudomonas Aeruginosa Multi-Drug Resistant Complete Imaging Last Impressions Chest X-Ray 12/21/17 0600 Signed Impressions: Service Date/Time: Thursday, December 21, 2017 05:51 - CONCLUSION: Some improvement in the infiltrates bilaterally. Deangelo Wren Jr., MD Upper Extremity Ultrasound 11/04/17 0000 Signed Impressions: Service Date/Time: Saturday, November 04, 2017 09:57 - CONCLUSION: No thrombus observed. Subcutaneous edema noted. Deangelo Wren Jr., MD Abdomen X-Ray 11/04/17 0000 Signed Impressions: Service Date/Time: Saturday, November 04, 2017 11:58 - CONCLUSION: Gaseous distention of bowel loops could be ileus but unchanged. Benja Ramsey MD CT Angiography 11/01/17 0000 Signed Impressions: Service Date/Time: Wednesday, November 01, 2017 16:47 - CONCLUSION: No evidence for pulmonary embolism. Please see above. Choco Mustafa MD Thoracentesis 08/05/17 1535 Signed Impressions: Service Date/Time: Saturday, August 05, 2017 16:08 - CONCLUSION: Uncomplicated CT-guided thoracentesis. Sage Adler MD Chest Ultrasound 08/02/17 0000 Signed Impressions: Service Date/Time: Tuesday, August 01, 2017 22:06 - CONCLUSION: 1. Moderate right pleural effusion, as above. Alejo De La Vega MD Hip and Pelvis X-Ray 07/09/17 0000 Signed Impressions: Service Date/Time: Sunday, July 09, 2017 14:04 - CONCLUSION: Anatomic alignment. Ricardo Middleton MD FACR Liver Ultrasound 06/19/17 0000 Signed Impressions: Service Date/Time: June 13:20 - CONCLUSION: 1. Mildly increased echotexture of the liver characteristic of hepatic steatosis. 2. Gallbladder sludge. Obdulio Sam MD Head CT 05/15/17 0000 Signed Impressions: Service Date/Time: May 19:59 - CONCLUSION: 1. 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 2. No bleed or new/acute infarct. Obdulio Simms MD Gall Bladder Ultrasound 05/08/17 0000 Signed Impressions: Service Date/Time: May 08:23 - CONCLUSION: Focally unremarkable appearance of the gallbladder Obdulio Chun MD Abdomen/Pelvis CT 05/07/17 0000 Signed Impressions: Service Date/Time: Sunday, May 07, 2017 13:23 - CONCLUSION: 1. Large left pneumothorax. 2. Bilateral lower lobe consolidation and bilateral moderate size pleural effusions. 3. Significant soft tissue thickening of the right lateral chest wall and left gluteus muscle. 4. Mild ascites. The findings were called to Dr. Carney. Deangelo Zamora MD Chest CT 04/30/17 0000 Signed Impressions: Service Date/Time: Sunday, April 30, 2017 09:20 - CONCLUSION: 1. Bilateral pulmonary infiltrates more pronounced within the lower lobes with tiny bilateral pleural effusions. Material seen filling the lower lobe bronchi bilaterally either related to purulent material or perhaps mucus plugging. Deangelo Wren Jr., MD Carotid Artery Ultrasound 04/24/17 0000 Signed Impressions: Service Date/Time: April 09:45 - CONCLUSION: 1. No hemodynamically significant carotid artery stenosis. Arnie Middleton MD Hip X-Ray 04/21/17 0000 Signed Impressions: Service Date/Time: Friday, April 21, 2017 11:36 - CONCLUSION: Fluoroscopic images during placement of intramedullary siomara left femur. Benja Ramsey MD Physical Exam GENERAL: Awake, focusing, but not following, looks comfortable on T piece SKIN: Warm and dry. No generalized rash, no ecchymoses and no evidence of embolic lesions. HEAD: Atraumatic. Normocephalic. No temporal wasting, or tenderness. EYES: [place] conjunctiva. No petechia or hemorrhage. Pupils equal, round and reactive to light. No scleral icterus. No injection or drainage. EARS, NOSE AND THROAT: Nose without bleeding or purulent nasal discharge. No sinus tenderness. Mucous membranes pink and moist. NECK: Trachea midline. Trach site ok. Supple and not tender, no meningeal signs CARDIOVASCULAR: Regular rate and rhythm. Soft heart sounds. RESPIRATORY: has bilateral rhonchi worse on R than L ABDOMEN: Soft, mildly distended, some grimacing during palpation. Bowel sounds present and normoactive. PEG site ok EXTREMITIES: No clubbing, cyanosis, or edema. Well perfused and warm. NEUROLOGICAL: Awake and focusing. Not following. 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 Fracture L hip S/P ORIF RECOMMENDATION Continue Zosyn - plan 7 days Stop Levaquin Colistin nebs Clinically doing well Discussed with Nelly Bland MD Dec 24, 2017 12:11
--- NOTE | 2017-12-24 15:22 | HHI.PR ---
Subjective Remarks No events overnight. Patient is on TP's with 40% FIO2. . Tolerating tube feeds. Tolerates TF No fever Moderate amount of thick mucous Trach downsized to #6 Tolerates well. Still has diarrhoea Objective Vital Signs Vital Signs Date Time Temp Pulse Resp B/P (MAP) Pulse Ox O2 Delivery O2 Flow Rate FiO2 12/24/17 11:18 98.0 65 14 110/70 (83) 99 12/24/17 10:53 100 T-piece 8.00 35 12/24/17 10:01 98.7 78 14 124/82 (96) 99 12/24/17 09:59 98 T-Piece 45 12/24/17 07:35 98 T-piece 40 12/24/17 04:00 98.6 61 17 137/70 (92) 99 12/24/17 00:00 98.1 67 16 125/66 (85) 99 12/23/17 20:49 97 T-piece 40 12/23/17 20:00 98.4 64 17 137/75 (95) 98 12/23/17 20:00 98 T-Piece 45 12/23/17 15:54 98.7 68 14 130/60 (83) 99 I/O 12/23/17 12/23/17 12/23/17 12/24/17 12/24/17 12/24/17 07:00 15:00 23:00 07:00 15:00 23:00 Intake Total 1233 ml 1100 ml 1875 ml Output Total 400 ml 0 ml 0 ml 0 ml Balance 833 ml 0 ml 1100 ml 1875 ml 0 ml IV Total 200 ml 100 ml Tube Feeding 533 ml 600 ml 1025 ml Other 500 ml 500 ml 750 ml Output Urine Total 400 ml Tube Feeding Residual Discard 0 ml 0 ml 0 ml # Voids 2 3 4 # Bowel Movements 1 4 3 Result Diagram: 12/24/17 1015 12/24/17 1015 Objective Remarks GENERAL: Elderly female,NAD SKIN: Warm and dry. HEAD: Normocephalic. EYES: No scleral icterus. No injection or drainage. NECK: Supple, trachea midline. No JVD or lymphadenopathy. + trach CARDIOVASCULAR: Regular rate and rhythm without murmurs, gallops, or rubs. RESPIRATORY: Breath sounds equal bilaterally. No accessory muscle use. GASTROINTESTINAL: Abdomen soft, non-tender, nondistended. MUSCULOSKELETAL: No cyanosis, or edema. BACK: Nontender without obvious deformity. No CVA tenderness. A/P Assessment and Plan Chronic resp failure, ,S/P Trach CVA Pneumonia Calcified Granuloma LLL Pseudomonas Tracheobronchitis, PLAN: Continue with TP's, keep sats >92% Bronchodilators, Pulm toilet, trach care CT chest 11/01: No PE,adenopathy in the right paratracheal, subcarinal and hilar regions with numerous prominent lymph nodes seen. Cont TF- GI/DVT prophylaxis Stable from pulm standpoint. [facility] RN at [facility],Chris Hester MD Dec 24, 2017 15:22
[2017-12-24] MEDS: RESP: ALBUTEROL 2.5 MG/3 ML NEB (PRN) NEB (16:19)
--- NOTE | 2017-12-24 17:00 | HHI.PR ---
Subjective Remarks HAVING ISSUES WITH VOMITING WILL HOLD TUBE FEEDS FOR 3 HOURS THEN RESTART LAI RN AND VENKAT Objective Vitals Vital Signs Date Time Temp Pulse Resp B/P (MAP) Pulse Ox O2 Delivery O2 Flow Rate FiO2 12/24/17 16:19 91 T-piece 6.00 35 12/24/17 11:18 98.0 65 14 110/70 (83) 99 12/24/17 10:53 100 T-piece 8.00 35 12/24/17 10:01 98.7 78 14 124/82 (96) 99 12/24/17 09:59 98 T-Piece 45 12/24/17 07:35 98 T-piece 40 12/24/17 04:00 98.6 61 17 137/70 (92) 99 12/24/17 00:00 98.1 67 16 125/66 (85) 99 12/23/17 20:49 97 T-piece 40 12/23/17 20:00 98.4 64 17 137/75 (95) 98 12/23/17 20:00 98 T-Piece 45 I/O 12/23/17 12/23/17 12/23/17 12/24/17 12/24/17 12/24/17 07:00 15:00 23:00 07:00 15:00 23:00 Intake Total 1233 ml 1100 ml 1875 ml Output Total 400 ml 0 ml 0 ml 0 ml Balance 833 ml 0 ml 1100 ml 1875 ml 0 ml IV Total 200 ml 100 ml Tube Feeding 533 ml 600 ml 1025 ml Other 500 ml 500 ml 750 ml Output Urine Total 400 ml Tube Feeding Residual Discard 0 ml 0 ml 0 ml # Voids 2 3 4 # Bowel Movements 1 4 3 Result Diagram: 12/24/17 1015 12/24/17 1015 Other Results Laboratory Tests Test 12/22/17 06:55 12/24/17 10:15 White Blood Count 9.8 TH/MM3 11.6 TH/MM3 Red Blood Count 2.91 MIL/MM3 3.00 MIL/MM3 Hemoglobin 9.9 GM/DL 10.0 GM/DL Hematocrit 28.2 % 29.3 % Mean Corpuscular Volume 96.9 FL 97.8 FL Mean Corpuscular Hemoglobin 34.0 PG 33.4 PG Mean Corpuscular Hemoglobin Concent 35.1 % 34.1 % Red Cell Distribution Width 13.8 % 13.3 % Platelet Count 356 TH/MM3 413 TH/MM3 Mean Platelet Volume 8.5 FL 8.6 FL Neutrophils (%) (Auto) 69.3 % 62.5 % Lymphocytes (%) (Auto) 16.2 % 25.4 % Monocytes (%) (Auto) 8.9 % 6.7 % Eosinophils (%) (Auto) 4.8 % 4.3 % Basophils (%) (Auto) 0.8 % 1.1 % Neutrophils # (Auto) 6.8 TH/MM3 7.2 TH/MM3 Lymphocytes # (Auto) 1.6 TH/MM3 2.9 TH/MM3 Monocytes # (Auto) 0.9 TH/MM3 0.8 TH/MM3 Eosinophils # (Auto) 0.5 TH/MM3 0.5 TH/MM3 Basophils # (Auto) 0.1 TH/MM3 0.1 TH/MM3 CBC Comment AUTO DIFF AUTO DIFF Differential Total Cells Counted 100 100 Neutrophils % (Manual) 58 % 59 % Band Neutrophils % 7 % 6 % Lymphocytes % 19 % 23 % Monocytes % 8 % 1 % Eosinophils % 6 % 8 % Neutrophils # (Manual) 6.6 TH/MM3 7.9 TH/MM3 Myelocytes 2 % 3 % Differential Comment FINAL DIFF MANUAL FINAL DIFF MANUAL Platelet Estimate NORMAL HIGH Platelet Morphology Comment NORMAL NORMAL Blood Urea Nitrogen 25 MG/DL 17 MG/DL Creatinine 0.57 MG/DL 0.50 MG/DL Random Glucose 90 MG/DL 50 MG/DL Calcium Level 8.8 MG/DL 9.2 MG/DL Sodium Level 139 MEQ/L 140 MEQ/L Potassium Level 4.1 MEQ/L 3.6 MEQ/L Chloride Level 102 MEQ/L 102 MEQ/L Carbon Dioxide Level 29.2 MEQ/L 30.4 MEQ/L Anion Gap 8 MEQ/L 8 MEQ/L Estimat Glomerular Filtration Rate 103 ML/MIN 120 ML/MIN Toxic Granulation 1+ Imaging Last Impressions Chest X-Ray 12/21/17 0600 Signed Impressions: Service Date/Time: Thursday, December 21, 2017 05:51 - CONCLUSION: Some improvement in the infiltrates bilaterally. Deangelo Wren Jr., MD Upper Extremity Ultrasound 11/04/17 0000 Signed Impressions: Service Date/Time: Saturday, November 04, 2017 09:57 - CONCLUSION: No thrombus observed. Subcutaneous edema noted. Deangelo Wren Jr., MD Abdomen X-Ray 11/04/17 0000 Signed Impressions: Service Date/Time: Saturday, November 04, 2017 11:58 - CONCLUSION: Gaseous distention of bowel loops could be ileus but unchanged. Benja Ramsey MD CT Angiography 11/01/17 0000 Signed Impressions: Service Date/Time: Wednesday, November 01, 2017 16:47 - CONCLUSION: No evidence for pulmonary embolism. Please see above. Choco Mustafa MD Thoracentesis 08/05/17 1535 Signed Impressions: Service Date/Time: Saturday, August 05, 2017 16:08 - CONCLUSION: Uncomplicated CT-guided thoracentesis. Sage Adler MD Chest Ultrasound 08/02/17 0000 Signed Impressions: Service Date/Time: Tuesday, August 01, 2017 22:06 - CONCLUSION: 1. Moderate right pleural effusion, as above. Alejo De La Vega MD Hip and Pelvis X-Ray 07/09/17 0000 Signed Impressions: Service Date/Time: Sunday, July 09, 2017 14:04 - CONCLUSION: Anatomic alignment. Ricardo Middleton MD FACR Liver Ultrasound 06/19/17 0000 Signed Impressions: Service Date/Time: June 13:20 - CONCLUSION: 1. Mildly increased echotexture of the liver characteristic of hepatic steatosis. 2. Gallbladder sludge. Obdulio Sam MD Head CT 05/15/17 0000 Signed Impressions: Service Date/Time: May 19:59 - CONCLUSION: 1. 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 2. No bleed or new/acute infarct. Obdulio Simms MD Gall Bladder Ultrasound 05/08/17 0000 Signed Impressions: Service Date/Time: May 08:23 - CONCLUSION: Focally unremarkable appearance of the gallbladder Obdulio Chun MD Abdomen/Pelvis CT 05/07/17 0000 Signed Impressions: Service Date/Time: Sunday, May 07, 2017 13:23 - CONCLUSION: 1. Large left pneumothorax. 2. Bilateral lower lobe consolidation and bilateral moderate size pleural effusions. 3. Significant soft tissue thickening of the right lateral chest wall and left gluteus muscle. 4. Mild ascites. The findings were called to Dr. Carney. Deangelo Zamora MD Chest CT 04/30/17 0000 Signed Impressions: Service Date/Time: Sunday, April 30, 2017 09:20 - CONCLUSION: 1. Bilateral pulmonary infiltrates more pronounced within the lower lobes with tiny bilateral pleural effusions. Material seen filling the lower lobe bronchi bilaterally either related to purulent material or perhaps mucus plugging. Deangelo Wren Jr., MD Carotid Artery Ultrasound 04/24/17 0000 Signed Impressions: Service Date/Time: April 09:45 - CONCLUSION: 1. No hemodynamically significant carotid artery stenosis. Arnie Middleton MD Hip X-Ray 04/21/17 0000 Signed Impressions: Service Date/Time: Friday, April 21, 2017 11:36 - CONCLUSION: Fluoroscopic images during placement of intramedullary siomara left femur. Benja Ramsey MD Objective Remarks GENERAL: Awake follows no commands left side is flaccid can move right side review of systems is unobtainable SKIN: Warm and dry. HEAD: Atraumatic. Normocephalic. EYES: Pupils equal and round. No scleral icterus. No injection or drainage. ENT: No nasal bleeding or discharge. Mucous membranes pink and moist. NECK: Trachea midline. No JVD. Supple tracheostomy in place CARDIOVASCULAR: Regular rate and rhythm. S1-S2 no S3 or S4 RESPIRATORY: No accessory muscle use. Clear to auscultation. Breath sounds equal bilaterally. GASTROINTESTINAL: Abdomen soft, non-tender, nondistended. Hepatic and splenic margins not palpable. PEG tube in place MUSCULOSKELETAL: Extremities without clubbing, cyanosis, or edema. No obvious deformities. NEUROLOGICAL: Awake and alert. No obvious cranial nerve deficits. Motor grossly within normal limits. Moves left side does not follow commands. No speech. PSYCHIATRIC: INAppropriate mood and affect; insight and judgment ABnormal. Procedures PEG tube trach 05/15/17 and PEG 05/16/17 Medications and IVs Current Medications Potassium Chloride 100 ml @ As Directed STK-MED ONCE .ROUTE Last administered on 04/20/17t 13:58; Start 04/20/17 at 13:50; Stop 04/20/17 at 13:51; Status DC Sodium Chloride 1,000 ml @ 250 mls/hr Q4H IV ; Start 04/20/17 at 14:30; Stop at 21:57; Status DC Dextrose/Sodium Chloride 1,000 ml @ 200 mls/hr Q5H IV Last administered on t 14:30; Start 04/20/17 at 14:30; Stop 04/20/17 at 21:57; Status DC Miscellaneous Medication ([facility] [place] [facility] Information) Mix all IV Medications in Nor... UNSCH .XX ; Start 04/20/17 at 14:30; Stop 04/20/17 at 21:57; Status DC Potassium Chloride 100 ml @ 100 mls/hr Q1H PRN IV SEE PROTOCOL; Start at 14:30; Stop 04/20/17 at 21:57; Status DC Potassium Chloride 100 ml @ 50 mls/hr Q2H PRN IV SEE PROTOCOL; Start 04/20/17 at 14:30; Stop 04/20/17 at 21:57; Status DC Potassium Chloride 100 ml @ 100 mls/hr Q1H PRN IV SEE PROTOCOL; Start at 14:30; Stop 04/20/17 at 21:57; Status DC Potassium Chloride 100 ml @ 100 mls/hr Q1H PRN IV SEE PROTOCOL TABLE; Start at 14:30; Stop 04/20/17 at 21:57; Status DC Potassium Chloride 100 ml @ 50 mls/hr Q2H PRN IV SEE PROTOCOL; Start 04/20/17 at 14:30; Stop 04/20/17 at 21:57; Status DC Potassium Chloride 100 ml @ 50 mls/hr Q2H PRN IV SEE PROTOCOL TABLE; Start at 14:30; Stop 04/20/17 at 21:57; Status DC Potassium Chloride 100 ml @ 50 mls/hr Q2H PRN IV SEE PROTOCOL TABLE; Start at 14:30; Stop 04/20/17 at 21:57; Status DC Potassium Chloride 100 ml @ 50 mls/hr Q2H PRN IV SEE PROTOCOL TABLE; Start at 14:30; Stop 04/20/17 at 21:57; Status DC Insulin Human Regular (NovoLIN R INJ) 0.1 units/ Kg actual body weight BOLUS ONCE IV PUSH Last administered on 04/20/17t 15:51; Start 04/20/17 at 14:30; Stop 04/20/17 at 14:31; Status DC Insulin Human Regular 100 units/ Sodium Chloride 100 ml @ 0 mls/hr TITRATE IV ; Start 04/20/17 at 14:30; Stop 04/20/17 at 21:57; Status DC Dextrose (D50w (Vial) Inj) 50 ml Q10M PRN IV PUSH HYPOGLYCEMIA DKA -SEE COMMENTS; Start 04/20/17 at 14:30; Stop 04/20/17 at 21:57; Status DC Sodium Bicarbonate (Sodium Bicarbonate 8.4% Inj) 100 meq STAT PRN IV SEE LABEL COMMENTS; Start 04/20/17 at 14:30; Stop 04/20/17 at 21:57; Status DC Sodium Bicarbonate (Sodium Bicarbonate 8.4% Inj) 50 meq STAT PRN IV SEE LABEL COMMENTS; Start 04/20/17 at 14:30; Stop 04/20/17 at 21:57; Status DC Sodium Phosphate 15 mmol/Sodium Chloride 105 ml @ 25 mls/hr UNSCH PRN IV SEE PROTOCOL TABLE; Start 04/20/17 at 14:30; Stop 04/20/17 at 21:57; Status DC Acetaminophen (Tylenol) 650 mg Q6H PRN PO PAIN SCALE 1 TO 2 Last administered on 05/03/17 00:27; Start 04/20/17 at 14:30; Stop 05/07/17 at 12:46; Status DC Ondansetron HCl (Zofran Inj) 4 mg Q6H PRN IV PUSH NAUSEA AND VOMITING Last administered on 04/30/17 02:28; Start 04/20/17 at 15:00; Stop 08/04/17 at 16:22 ; Status DC Heparin Sodium (Porcine) (Heparin Inj) 5,000 units Q12HR SQ Last administered on 04/20/17 21:00; Start 04/20/17 at 21:00; Stop 04/21/17 at 11:44; Status DC Morphine Sulfate (Morphine Inj) 1 mg Q3H PRN IV Pain 3-5; if unable to take PO Last administered on 04/28/17 18:15; Start 04/20/17 at 17:15; Stop 05/19/17 at 07:55; Status DC Morphine Sulfate (Morphine Inj) 2 mg Q3H PRN IV Pain 6-10;if unable to take PO Last administered on 04/30/17 02:29; Start 04/20/17 at 17:15; Stop 05/19/17 at 07:55; Status DC Naloxone HCl (Narcan Inj) 0.4 mg UNSCH PRN IV SEE LABEL COMMENTS; Start at 17:15 Senna/Docusate Sodium (Nalini-Colace) 1 tab BID PO Last administered on 05/07/17 10:30; Start 04/20/17 at 21:00; Stop 05/07/17 at 12:50; Status DC Magnesium Hydroxide (Milk Of Magnesia Liq) 30 ml Q12H PRN PO MILD - MODERATE CONSTIPATION; Start 04/20/17 at 20:30; Stop 07/26/17 at 16:12; Status DC Sennosides (Senokot) 17.2 mg Q12H PRN PO MODERATE - SEVERE CONSTIPATION Last administered on 04/23/17 22:55; Start 04/20/17 at 20:30; Stop 05/19/17 at 08:05 ; Status DC Bisacodyl (Dulcolax Supp) 10 mg DAILY PRN RECTAL SEVERE CONSITIPATION; Start at 20:30; Stop 07/26/17 at 16:12; Status DC Lactulose (Lactulose Liq) 30 ml DAILY PRN PO SEVERE CONSITIPATION; Start at 20:30; Stop 05/05/17 at 09:24; Status DC Dextrose (D50w (Vial) Inj) 50 ml UNSCH PRN IV HYPOGLYCEMIA-SEE COMMENTS; Start 04/20/17 at 21:45; Stop 04/24/17 at 09:34; Status DC Glucagon (Glucagon Inj) 1 mg UNSCH PRN OTHER HYPOGLYCEMIA-SEE COMMENTS; Start 04/20/17 at 21:45; Stop 04/24/17 at 09:34; Status DC Insulin Aspart (NovoLOG SUPPLEMENTAL SCALE) 1 ACHS SLIDING SCALE SQ Last administered on 04/24/17 06:43; Start 04/21/17 at 07:00; Stop 04/24/17 at 09:35 ; Status DC Calcium Carbonate (Oscal) 500 mg ONCE ONCE PO ; Start 04/21/17 at 07:00; Stop 04/21/17 at 07:11; Status DC Sodium Phosphate 15 mmol/Sodium Chloride 155 ml @ 38.75 mls/ hr ONCE ONCE IV Last administered on 04/21/17 09:32; Start 04/21/17 at 07:00; Stop 04/21/17 at 10:59; Status DC Sodium Chloride 1,000 ml @ 75 mls/hr [id number] IV ; Start 04/21/17 at 09:03; Stop 04/21/17 at 09:03; Status DC Sodium Chloride 1,000 ml @ 100 mls/hr Q10H IV Last administered on 04/23/17 02:15; Start 04/21/17 at 09:03; Stop 04/24/17 at 09:12; Status DC Cefazolin Sodium (Ancef Inj) 1,000 mg STK-MED ONCE .ROUTE Last administered on 04/21/17 10:38; Start 04/21/17 at 10:30; Stop 04/21/17 at 10:31; Status DC Gentamicin Sulfate (Gentamicin Inj) 160 mg STK-MED ONCE .ROUTE Last administered on 04/21/17 11:36; Start 04/21/17 at 10:30; Stop 04/21/17 at 10:31 ; Status DC Vancomycin HCl (Vancomycin Inj) 1,000 mg STK-MED ONCE .ROUTE Last administered on 04/21/17 11:04; Start 04/21/17 at 10:40; Stop 04/21/17 at 10:41; Status DC Bupivacaine HCl/ Epinephrine Bitart (Sensorcaine-Epinephrine 0.25% Inj) 50 ml STK-MED ONCE .ROUTE Last administered on 04/21/17 11:39; Start 04/21/17 at 11: 39; Stop 04/21/17 at 11:40; Status DC IV Flush (NS Flush) 2 ml UNSCH PRN IVF FLUSH AFTER USING IV ACCESS; Start 04/21 at 11:45; Stop 04/24/17 at 09:34; Status DC IV Flush (NS Flush) 2 ml BID IVF Last administered on 04/23/17 07:51; Start at 21:00; Stop 04/24/17 at 09:34; Status DC Enoxaparin Sodium (Lovenox Inj) 30 mg Q24H SQ Last administered on 04/23/17 11 :01; Start 04/22/17 at 11:00; Stop 04/24/17 at 18:07; Status DC Cefazolin Sodium 1000 mg/Sodium Chloride 100 ml @ 200 mls/hr Q8H IV Last administered on 04/22/17 09:07; Start 04/21/17 at 18:00; Stop 04/22/17 at 10:29 ; Status DC Calcium/Vitamin D (Oscal-D 250-125) 250 mg TID PO Last administered on 09:56; Start 04/21/17 at 13:00; Stop 10/03/17 at 11:55; Status DC Diphenhydramine HCl (Benadryl) 25 mg Q6H PRN PO ITCHING; Start 04/21/17 at 11: 45; Stop 04/24/17 at 08:24; Status DC Acetaminophen/ Hydrocodone Bitart ([place] 7.5-325 Mg) 1 tab Q3H PRN PO pain 3< 10 Last administered on 05/03/17 20:17; Start 04/21/17 at 11:45; Stop 05/07/17 at 12:46; Status DC Cholecalciferol (Vitamin D3) 5,000 units DAILY PO Last administered on 09:08; Start 04/22/17 at 09:00; Stop 10/03/17 at 11:55; Status DC Ergocalciferol (Drisdol) 50,000 units ONCE ONCE PO ; Start 04/21/17 at 13:00; Stop 04/21/17 at 13:01; Status DC Midazolam HCl (Versed Inj) 2 mg STK-MED ONCE .ROUTE ; Start 04/21/17 at 12:15; Stop 04/21/17 at 12:16; Status DC Fentanyl Citrate (fentaNYL INJ) 250 mcg STK-MED ONCE .ROUTE ; Start 04/21/17 at 12:16; Stop 04/21/17 at 12:17; Status DC Morphine Sulfate (*morphine INJ PERIprocedure ONLY) 8 mg STK-MED ONCE .ROUTE Last administered on 04/21/17 12:37; Start 04/21/17 at 12:36; Stop 04/21/17 at 12:37; Status DC Miscellaneous Information ALL NURSING DEPARTME... UNSCH PRN .XX SEE LABEL COMMENTS; Start 04/21/17 at 13:00; Stop 04/22/17 at 12:59; Status DC Calcium Carbonate (Oscal) 500 mg ONCE ONCE PO ; Start 04/24/17 at 08:00; Stop 04/24/17 at 08:01; Status DC Sodium Chloride 1,000 ml @ 70 mls/hr [id number] IV ; Start 04/24/17 at 09:15; Stop 04/24/17 at 09:37; Status DC IV Flush (NS Flush) 2 ml BID IV FLUSH Last administered on 11/16/17at 09:00; Start 04/24/17 at 21:00; Stop 11/16/17 at 10:52; Status DC IV Flush (NS Flush) 2 ml UNSCH PRN IV FLUSH FLUSH AFTER USING IV ACCESS Last administered on 09/17/17at 08:48; Start 04/24/17 at 09:30; Stop 11/21/17 at 20:44 ; Status DC Sodium Chloride 1,000 ml @ 70 mls/hr [id number] IV Last administered on 03:38; Start 04/24/17 at 09:25; Stop 04/30/17 at 07:51; Status DC Aspirin (Aspirin Supp) 300 mg DAILY RECTAL Last administered on 04/26/17 08:38 ; Start 04/24/17 at 09:30; Stop 04/26/17 at 15:21; Status DC Insulin Aspart (NovoLOG SUPPLEMENTAL SCALE) 1 ACHS SQ Last administered on 04/24 17:29; Start 04/24/17 at 11:00; Stop 04/24/17 at 18:07; Status DC Dextrose (D50w (Vial) Inj) 50 ml UNSCH PRN IV PUSH HYPOGLYCEMIA-SEE COMMENTS; Start 04/24/17 at 09:30; Stop 04/24/17 at 18:07; Status DC Glucagon (Glucagon Inj) 1 mg UNSCH PRN OTHER HYPOGLYCEMIA-SEE COMMENTS; Start 04/24/17 at 09:30; Stop 04/24/17 at 18:07; Status DC Insulin Aspart (NovoLOG SUPPLEMENTAL SCALE) 1 Q4HR SQ ; Start 04/24/17 at 18:15 ; Stop 04/24/17 at 20:43; Status DC Dextrose (D50w (Vial) Inj) 25 ml UNSCH PRN IV HYPOGLYCEMIA-SEE COMMENTS; Start 04/24/17 at 18:15; Stop 04/26/17 at 20:28; Status DC Glucagon (Glucagon Inj) 1 mg UNSCH PRN IM/SQ HYPOGLYCEMIA-SEE COMMENTS; Start 04/24/17 at 18:15; Stop 05/21/17 at 13:34; Status DC Insulin Aspart (NovoLOG SUPPLEMENTAL SCALE) 1 Q4H SQ Last administered on 03:48; Start 04/24/17 at 22:00; Stop 04/26/17 at 09:43; Status DC Insulin Detemir (Levemir Inj) 10 units HS SQ Last administered on 04/25/17 23: 46; Start 04/25/17 at 21:00; Stop 04/26/17 at 09:43; Status DC Insulin Detemir (Levemir Inj) 20 units BID SQ Last administered on 04/26/17 11 :05; Start 04/26/17 at 10:00; Stop 04/27/17 at 08:34; Status DC Mannitol (Mannitol Inj) 12.5 gm Q6HR IV Last administered on 04/26/17 11:06; Start 04/26/17 at 12:00; Stop 04/28/17 at 18:33; Status DC Dextrose (D50w (Vial) Inj) 50 ml UNSCH PRN IV HYPOGLYCEMIA-SEE COMMENTS; Start 04/26/17 at 09:45; Status UNV Glucagon (Glucagon Inj) 1 mg UNSCH PRN OTHER HYPOGLYCEMIA-SEE COMMENTS; Start 04/26/17 at 09:45; Status UNV Insulin Aspart (NovoLOG SUPPLEMENTAL SCALE) 1 ACHS SLIDING SCALE SQ Last administered on 04/26/17 11:48; Start 04/26/17 at 11:00; Stop 04/26/17 at 15:24 ; Status DC Insulin Aspart (NovoLOG SUPPLEMENTAL SCALE) 1 Q4HR SQ Last administered on 04/28 09:38; Start 04/26/17 at 16:00; Stop 04/28/17 at 15:40; Status DC Aspirin (Aspirin) 325 mg DAILY DOBHOFF Last administered on 12/24/17at 09:42; Start 04/27/17 at 09:00 Dextrose (D50w (Syr) Inj) 25 ml UNSCH PRN IV HYPOGLYCEMIA- SEE COMMENTS Last administered on 05/18/17 00:22; Start 04/26/17 at 20:30; Stop 05/19/17 at 08:01 ; Status DC Metoprolol Tartrate (Lopressor Inj) 5 mg Q5M PRN IV PUSH HR>150 Last administered on 06/02/17 03:21; Start 04/27/17 at 04:00; Stop 07/12/17 at 01: 05; Status DC Insulin Detemir (Levemir Inj) 15 units BID SQ Last administered on 04/28/17 09 :39; Start 04/27/17 at 09:00; Stop 04/28/17 at 15:36; Status DC Potassium Chloride 100 ml @ 50 mls/hr Q2H PRN IV For Potassium 2.8 - 3.2 mEq/L ; Start 04/27/17 at 08:45; Stop 07/12/17 at 00:31; Status DC Potassium Chloride 100 ml @ 50 mls/hr Q2H PRN IV For Potassium 2.8 - 3.2 mEq/ L Last administered on 05/18/17 10:41; Start 04/27/17 at 08:45; Stop 07/12/17 at 00:31; Status DC Potassium Bicarb/ Potassium Chloride (K-Lyte Cl Eff) 50 meq UNSCH PRN PO For Potassium 3.3 - 3.5 mEq/L; Start 04/27/17 at 08:45; Stop 07/12/17 at 00:31; Status DC Potassium Chloride 100 ml @ 25 mls/hr UNSCH PRN IV For Potassium 3.3 - 3.5 mEq /L Last administered on 05/04/17 19:07; Start 04/27/17 at 08:45; Stop 07/12/17 at 00:31; Status DC Potassium Chloride 100 ml @ 50 mls/hr Q2H PRN IV For Potassium 3.3 - 3.5 mEq/ L Last administered on 05/18/17 08:29; Start 04/27/17 at 08:45; Stop 07/12/17 at 00:31; Status DC Magnesium Sulfate 4 gm/Sodium Chloride 100 ml @ 50 mls/hr UNSCH PRN IV For Magnesium 0.9 - 1.1 mg/dL; Start 04/27/17 at 08:45; Stop 07/12/17 at 00:31; Status DC Magnesium Oxide (Mag-Ox) 800 mg UNSCH PRN PO For Magnesium 1.2 - 1.6 mg/dL; Start 04/27/17 at 08:45; Stop 07/12/17 at 00:31; Status DC Magnesium Sulfate 2 gm/Sodium Chloride 100 ml @ 50 mls/hr UNSCH PRN IV For Magnesium 1.2 - 1.6 mg/dL; Start 04/27/17 at 08:45; Stop 07/12/17 at 00:31; Status DC Potassium Phosphate (K-Phos) 2,000 mg Q4H PRN PO For Phosphorus < 2.5 mg/dL Last administered on 04/28/17 15:38; Start 04/27/17 at 08:45; Stop 07/12/17 at 00:31; Status DC Sodium Phosphate 30 mmol/Sodium Chloride 250 ml @ 42 mls/hr UNSCH PRN IV For Phosphorus < 2.5 mg/dL Last administered on 04/27/17 23:59; Start 04/27/17 at 08:45; Stop 07/12/17 at 00:31; Status DC Potassium Phosphate (K-Phos) 2,000 mg UNSCH PRN PO/TUBE SEE LABEL COMMENTS Last administered on 05/08/17 06:32; Start 04/27/17 at 08:45; Stop 07/12/17 at 00:31; Status DC Potassium Phosphate 30 mmol/ Sodium Chloride 260 ml @ 42 mls/hr UNSCH PRN IV SEE LABEL COMMENTS Last administered on 05/04/17 20:54; Start 04/27/17 at 08:45 ; Stop 07/12/17 at 00:31; Status DC Insulin Detemir (Levemir Inj) 10 units BID SQ Last administered on 04/30/17 21 :00; Start 04/28/17 at 21:00; Stop 05/01/17 at 07:49; Status DC Pantoprazole Sodium (Protonix Inj) 40 mg Q24H IV PUSH Last administered on 17:00; Start 04/28/17 at 17:00; Stop 05/07/17 at 12:52; Status DC Insulin Aspart (NovoLOG SUPPLEMENTAL SCALE) 1 ACHS SLIDING SCALE SQ Last administered on 05/18/17 21:00; Start 04/28/17 at 16:00; Stop 05/19/17 at 07:55 ; Status DC Sodium Chloride 250 ml @ 15 mls/hr ONCE ONCE IV ; Start 04/28/17 at 18:00; Stop 04/28/17 at 18:33; Status DC Acetaminophen (Ofirmev 1000 Mg/ 100 ml Inj) 1,000 mg NOW ONCE IV Last administered on 04/29/17 01:00; Start 04/29/17 at 01:00; Stop 04/29/17 at 01:01 ; Status DC Iohexol (Omnipaque 350 Inj) 75 ml STK-MED ONCE IVCONTRAST Last administered on 04/26/17 04:26; Start 04/26/17 at 04:26; Stop 04/29/17 at 10:24; Status DC Fluconazole/ Sodium Chloride 100 ml @ 100 mls/hr Q24H IV Last administered on 04/30/17 14:59; Start 04/29/17 at 14:00; Stop 04/30/17 at 15:40; Status DC Metronidazole (Flagyl) 500 mg Q8HR DOBHOFF Last administered on 05/13/17 13:37 ; Start 04/29/17 at 14:00; Stop 05/13/17 at 16:14; Status DC Albuterol/ Ipratropium (Duoneb Neb) 1 ampule Q4HR NEB PRN NEB CONGESTION Last administered on 05/04/17 20:38; Start 04/30/17 at 04:45; Stop 05/07/17 at 12:46; Status DC Bumetanide (Bumex Inj) 1 mg ONCE ONCE IV PUSH Last administered on 04/30/17 10:14; Start 04/30/17 at 08:00; Stop 04/30/17 at 08:01; Status DC Potassium Chloride/Sodium Chloride 1,000 ml @ 84 mls/hr [id number] IV Last administered on 05/01/17 07:00; Start 04/30/17 at 08:00; Stop 05/01/17 at 07:32 ; Status DC Albuterol/ Ipratropium (Duoneb Neb) 1 ampule Q6HR NEB NEB Last administered on 05/04/17 07:52; Start 04/30/17 at 10:00; Stop 05/04/17 at 09:59; Status DC Cefepime HCl 2000 mg/Sodium Chloride 100 ml @ 200 mls/hr Q8H IV Last administered on 05/04/17 07:53; Start 04/30/17 at 09:00; Stop 05/04/17 at 08:22; Status DC Micafungin Sodium 100 mg/Sodium Chloride 100 ml @ 100 mls/hr Q24H IV Last administered on 05/07/17 10:29; Start 04/30/17 at 09:00; Stop 05/07/17 at 13:49; Status DC Etomidate (Amidate Inj) 20 mg STK-MED ONCE .ROUTE Last administered on 15:07; Start 04/30/17 at 14:56; Stop 04/30/17 at 14:57; Status DC Midazolam HCl (Versed Inj) 5 mg STK-MED ONCE .ROUTE Last administered on 15:06; Start 04/30/17 at 14:57; Stop 04/30/17 at 14:58; Status DC Rocuronium Goldvein (Zemuron Inj) 50 mg STK-MED ONCE .ROUTE Last administered on 04/30/17 15:07; Start 04/30/17 at 14:58; Stop 04/30/17 at 14:59; Status DC Etomidate (Amidate Inj) 20 mg NOW ONCE IV PUSH ; Start 04/30/17 at 15:30; Stop 04/30/17 at 15:31; Status DC Midazolam HCl (Versed Inj) 5 mg NOW ONCE IV PUSH ; Start 04/30/17 at 15:30; Stop 04/30/17 at 15:32; Status DC Rocuronium Goldvein (Zemuron Inj) 50 mg NOW ONCE IV PUSH ; Start 04/30/17 at 15: 45; Stop 04/30/17 at 15:46; Status DC Vancomycin HCl 1000 mg/Sodium Chloride 250 ml @ 250 mls/hr Q12H IV ; Start at 15:45; Status Cancel Pharmacy Profile Note 1,000 ml @ 30 mls/hr UNSCH OTHER ; Start 04/30/17 at 15: 45; Stop 05/04/17 at 08:22; Status DC Vancomycin HCl 1250 mg/Sodium Chloride 262.5 ml @ 250 mls/hr Q12H IV Last administered on 05/03/17 07:24; Start 04/30/17 at 18:00; Stop 05/03/17 at 15:39; Status DC Miscellaneous Information SPECIFIC LAB TO BE DRAWN:VANCOMYCIN TROUGH DATE TO... ONCE ONCE .XX ; Start 05/02/17 at 05:45; Stop 05/02/17 at 05:46; Status DC Sodium Chloride 1,000 ml @ 84 mls/hr [id number] IV Last administered on 05/02/17 09:24; Start 05/01/17 at 07:30; Stop 05/02/17 at 11:49; Status DC Insulin Detemir (Levemir Inj) 20 units Q12H SQ Last administered on 05/02/17 09 :23; Start 05/01/17 at 09:00; Stop 05/02/17 at 12:07; Status DC Enoxaparin Sodium (Lovenox Inj) 40 mg Q24H SQ Last administered on 07/14/17 07:47; Start 05/01/17 at 08:00; Stop 07/14/17 at 12:05; Status DC Lactated Ringer's 1,000 ml @ 75 mls/hr [id number] IV Last administered on 05:57; Start 05/02/17 at 13:00; Stop 05/07/17 at 16:50; Status DC Insulin Detemir (Levemir Inj) 25 units Q12H SQ Last administered on 05/04/17 07 :50; Start 05/02/17 at 21:00; Stop 05/05/17 at 09:20; Status DC Vancomycin HCl 1250 mg/Sodium Chloride 262.5 ml @ 262.5 mls/ hr Q24H IV Last administered on 05/04/17 05:21; Start 05/04/17 at 06:00; Stop 05/04/17 at 08:22; Status DC Miscellaneous Information SPECIFIC LAB TO BE ROLF... ONCE ONCE .XX ; Start at 05:45; Stop 05/06/17 at 05:45; Status DC Levofloxacin/ Dextrose 150 ml @ 100 mls/hr Q24H IV Last administered on 10:00; Start 05/04/17 at 09:00; Stop 05/13/17 at 16:14; Status DC Furosemide (Lasix Inj) 10 mg BID@09,18 IV PUSH Last administered on 05/05/17 09 :05; Start 05/04/17 at 18:00; Stop 05/05/17 at 09:01; Status DC Albuterol/ Ipratropium (Duoneb Neb) 1 ampule Q6HR ALT NEB NEB Last administered on 05/05/17 04:30; Start 05/05/17 at 01:00; Stop 05/05/17 at 04:38; Status DC Albuterol/ Ipratropium (Duoneb Neb) 1 ampule Q6HR NEB NEB Last administered on 05/08/17 09:56; Start 05/05/17 at 10:00; Stop 05/08/17 at 10:15; Status DC Insulin Detemir (Levemir Inj) 10 units Q12H SQ Last administered on 05/07/17 10 :43; Start 05/05/17 at 21:00; Stop 05/07/17 at 13:54; Status DC Lactulose (Lactulose Liq) 30 ml DAILY PO Last administered on 05/07/17 10:29; Start 05/05/17 at 09:30; Stop 05/07/17 at 12:50; Status DC Sodium Chloride 1,000 ml @ 999 mls/hr BOLUS ONCE IV Last administered on 09:08; Start 05/06/17 at 07:45; Stop 05/06/17 at 08:45; Status DC Propofol (Diprivan 200 Mg/20 ml Inj) 200 mg STK-MED ONCE IV ; Start 04/21/17 at 12:12; Stop 05/06/17 at 12:13; Status DC Ephedrine Sulfate (ePHEDrine/NS 25 MG/5 ML SYR) 25 mg STK-MED ONCE IV ; Start at 12:12; Stop 05/06/17 at 12:13; Status DC Neostigmine Methylsulfate (Prostigmin Inj) 3 mg STK-MED ONCE IV ; Start at 12:12; Stop 05/06/17 at 12:13; Status DC Phenylephrine HCl (Neosynephrine/ NS 1000 Mcg/10ml Syr) 1,000 mcg STK-MED ONCE IV ; Start 04/21/17 at 12:12; Stop 05/06/17 at 12:13; Status DC Ondansetron HCl (Zofran Inj) 4 mg STK-MED ONCE IV PUSH ; Start 04/21/17 at 12:12 ; Stop 05/06/17 at 12:13; Status DC Albumin Human (Albumin 5% Inj) 25 gm NOW ONCE IV Last administered on 21:11; Start 05/06/17 at 20:45; Stop 05/06/17 at 20:46; Status DC Albuterol Sulfate (Albuterol Neb) 2.5 mg Q2HR NEB PRN NEB DYSPNEA; Start at 12:30; Stop 05/07/17 at 14:30; Status DC Bumetanide (Bumex Inj) 1 mg ONCE ONCE IV PUSH Last administered on 05/07/17 15 :07; Start 05/07/17 at 15:00; Stop 05/07/17 at 15:01; Status DC Metolazone (Zaroxolyn) 2.5 mg ONCE ONCE PO Last administered on 05/07/17 16:36 ; Start 05/07/17 at 15:30; Stop 05/07/17 at 15:31; Status DC Potassium Chloride (KCl Powder) 20 meq ONCE ONCE PO Last administered on 15:00; Start 05/07/17 at 15:00; Stop 05/07/17 at 15:01; Status DC Docusate Sodium (Colace Liq) 100 mg Q12HR PO Last administered on 07/22/17 21 :52; Start 05/07/17 at 21:00; Stop 07/26/17 at 16:13; Status DC Sennosides (Senna Liq) 8.8 mg BID OG-TUBE Last administered on 05/17/17 09:11 ; Start 05/07/17 at 21:00; Stop 05/19/17 at 08:05; Status DC Lactulose (Lactulose Liq) 30 ml QID PO Last administered on 05/16/17 20:56; Start 05/07/17 at 18:00; Stop 05/19/17 at 08:05; Status DC Polyethylene Glycol (Miralax) 17 gm BID OG-TUBE Last administered on 05/16/17 20:56; Start 05/07/17 at 21:00; Stop 05/19/17 at 08:05; Status DC Mineral Oil (Fleet Mineral Oil Enema) 118 ml ONCE ONCE RECTAL ; Start 05/07/17 at 13:00; Stop 05/07/17 at 14:37; Status DC Mineral Oil (Mineral Oil Liq) 30 ml ONCE ONCE PO Last administered on 16:36; Start 05/07/17 at 16:00; Stop 05/07/17 at 16:02; Status DC Methylnaltrexone Goldvein (Relistor Inj) 12 mg ONCE ONCE SQ Last administered on 05/07/17 16:37; Start 05/07/17 at 15:00; Stop 05/07/17 at 15:01; Status DC Albuterol Sulfate (Albuterol Neb) 2.5 mg Q2HR NEB PRN NEB DYSPNEA Last administered on 07/06/17 23:51; Start 05/07/17 at 13:00; Stop 07/16/17 at 16:36 ; Status DC Lansoprazole (Prevacid Odt) 30 mg DAILY NG Last administered on 12/24/17at 09:42 ; Start 05/08/17 at 09:00 Iohexol (Omnipaque 350 Inj) 60 ml STK-MED ONCE IVCONTRAST Last administered on 05/07/17 13:35; Start 05/07/17 at 13:35; Stop 05/07/17 at 13:36; Status DC Insulin Detemir (Levemir Inj) 15 units Q12H SQ Last administered on 05/10/17 20 :49; Start 05/07/17 at 21:00; Stop 05/11/17 at 09:21; Status DC Fentanyl Citrate (fentaNYL INJ) 100 mcg STK-MED ONCE .ROUTE ; Start 05/07/17 at 14:17; Stop 05/07/17 at 14:18; Status DC Midazolam HCl (Versed Inj) 5 mg STK-MED ONCE .ROUTE ; Start 05/07/17 at 14:18; Stop 05/07/17 at 14:19; Status DC Mineral Oil (Fleet Mineral Oil Enema) 118 ml ONCE ONCE RECTAL Last administered on 05/07/17 16:35; Start 05/07/17 at 16:00; Stop 05/07/17 at 16:02; Status DC Fentanyl Citrate (fentaNYL INJ) 50 mcg NOW ONCE IV Last administered on 17:21; Start 05/07/17 at 17:15; Stop 05/07/17 at 17:20; Status DC Midazolam HCl (Versed Inj) 1 mg NOW ONCE IV Last administered on 05/07/17 17: 15; Start 05/07/17 at 17:15; Stop 05/07/17 at 17:20; Status DC Potassium Chloride (KCl Powder) 80 meq ONCE ONCE PO Last administered on 10:29; Start 05/08/17 at 10:00; Stop 05/08/17 at 10:01; Status DC Potassium Chloride 100 ml @ 100 mls/hr Q1H IV Last administered on 05/08/17 15 :24; Start 05/08/17 at 10:00; Stop 05/08/17 at 12:59; Status DC Potassium Phos/ Sodium Phos (K-Phos Neutral) 1,000 mg ONCE ONCE PO Last administered on 05/08/17 10:46; Start 05/08/17 at 10:00; Stop 05/08/17 at 10:01; Status DC Bumetanide (Bumex Inj) 1 mg ONCE ONCE IV PUSH Last administered on 05/08/17 10 :28; Start 05/08/17 at 10:00; Stop 05/08/17 at 10:01; Status DC Albuterol/ Ipratropium (Duoneb Neb) 1 ampule Q6HR NEB NEB Last administered on 05/12/17 15:53; Start 05/08/17 at 16:00; Stop 05/12/17 at 15:59; Status DC Furosemide (Lasix Inj) 20 mg BID@09,18 IV PUSH Last administered on 05/10/17 18 :00; Start 05/10/17 at 10:00; Stop 05/11/17 at 06:15; Status DC Furosemide (Lasix Inj) 40 mg BID@0900,1800 IV PUSH Last administered on 17:53; Start 05/11/17 at 09:00; Stop 05/18/17 at 08:06; Status DC Acetazolamide Sodium (Diamox Inj) 500 mg DAILY IV PUSH Last administered on 08:54; Start 05/11/17 at 09:30; Stop 05/12/17 at 23:00; Status DC Insulin Detemir (Levemir Inj) 5 units Q12H SQ Last administered on 05/17/17 09 :12; Start 05/11/17 at 21:00; Stop 05/18/17 at 08:06; Status DC Protein (Beneprotein Powder) 1 pack TID G-TUBE Last administered on 10/03/17at 09 :00; Start 05/12/17 at 13:00; Stop 10/03/17 at 11:56; Status DC Acetazolamide Sodium (Diamox Inj) 500 mg ONCE ONCE IV PUSH Last administered on 05/13/17 22:40; Start 05/13/17 at 22:00; Stop 05/13/17 at 22:01; Status DC Cisatracurium Besylate (Nimbex Inj) 12 mg ONCE ONCE IV PUSH Last administered on 05/15/17 15:15; Start 05/14/17 at 17:45; Stop 05/14/17 at 17:49; Status DC Fentanyl Citrate (fentaNYL INJ) 100 mcg FRONTEND ENGINEER IV PUSH Last administered on 15:15; Start 05/14/17 at 17:45; Stop 05/15/17 at 17:44; Status DC Midazolam HCl (Versed Inj) 2 mg FRONTEND ENGINEER IV PUSH Last administered on 15:15; Start 05/14/17 at 17:45; Stop 05/15/17 at 17:44; Status DC Cisatracurium Besylate (Nimbex Inj) 12 mg FRONTEND ENGINEER IV PUSH ; Start 05/14/17 at 18:00; Stop 05/15/17 at 17:59; Status DC Cefazolin Sodium 1000 mg/Sodium Chloride 100 ml @ 200 mls/hr FRONTEND ENGINEER IV Last administered on 05/16/17 12:35; Start 05/15/17 at 17:15; Stop 05/18/17 at 17:14 ; Status DC Propofol (Diprivan 200 Mg/20 ml Inj) 210 mg STK-MED ONCE IV ; Start 05/16/17 at 13:30; Stop 05/16/17 at 18:25; Status DC Sodium Chloride 1,000 ml @ 75 mls/hr [id number] IV Last administered on 12:42; Start 05/17/17 at 11:45; Stop 05/19/17 at 07:55; Status DC Furosemide (Lasix Inj) 40 mg DAILY IV PUSH Last administered on 05/18/17 08:29 ; Start 05/18/17 at 09:00; Stop 05/19/17 at 07:55; Status DC Furosemide (Lasix Liq) 40 mg DAILY NG Last administered on 06/18/17 11:02; Start 05/19/17 at 09:00; Stop 06/19/17 at 06:54; Status DC Dextrose (D50w (Vial) Inj) 25 ml UNSCH PRN IV PUSH HYPOGLYCEMIA-SEE COMMENTS; Start 05/19/17 at 08:00; Stop 05/20/17 at 20:59; Status DC Insulin Human Regular (NovoLIN R SUPPLEMENTAL SCALE) 1 Q4HR SQ Last administered on 05/21/17 12:00; Start 05/19/17 at 08:00; Stop 05/21/17 at 13:15 ; Status DC Insulin Detemir (Levemir Inj) 8 units DAILY SQ Last administered on 05/20/17 09:00; Start 05/19/17 at 09:00; Stop 05/21/17 at 13:15; Status DC Dextrose (D50w (Syr) Inj) 25 ml UNSCH PRN IV PUSH HYPOGLYCEMIA-SEE COMMENTS Last administered on 05/20/17 21:14; Start 05/20/17 at 21:00; Stop 05/21/17 at 13:34; Status DC Insulin Detemir (Levemir Inj) 7 units Q12H SQ Last administered on 05/22/17 09 :00; Start 05/21/17 at 21:00; Stop 05/22/17 at 17:19; Status DC Dextrose (D50w (Vial) Inj) 50 ml UNSCH PRN IV PUSH HYPOGLYCEMIA-SEE COMMENTS; Start 05/21/17 at 13:15; Stop 05/22/17 at 17:06; Status DC Glucagon (Glucagon Inj) 1 mg UNSCH PRN OTHER HYPOGLYCEMIA-SEE COMMENTS; Start 05/21/17 at 13:15; Stop 10/08/17 at 11:08; Status DC Insulin Aspart (NovoLOG SUPPLEMENTAL SCALE) 1 ACHS SLIDING SCALE SQ Last administered on 06/11/17 11:56; Start 05/21/17 at 17:00; Stop 06/12/17 at 07: 10; Status DC Dextrose (D50w (Syr) Inj) 50 ml UNSCH PRN IV PUSH HYPOGLYCEMIA-SEE COMMENTS Last administered on 10/04/17 01:57; Start 05/22/17 at 17:15; Stop 10/08/17 at 11 :08; Status DC Insulin Detemir (Levemir Inj) 5 units Q12H SQ Last administered on 05/27/17 21 :22; Start 05/22/17 at 21:00; Stop 05/28/17 at 09:50; Status DC Enalaprilat (Vasotec Inj) 1.25 mg Q6H PRN IV PUSH SBP> OR = 180, DBP> OR = 100 Last administered on 05/31/17 05:28; Start 05/24/17 at 22:45; Stop 05/31/17 at 07:41; Status DC Water (Free Water) VOLUME: 300 ML Q6HR G-TUBE Last administered on 06/10/17 06:00; Start 05/25/17 at 14:15; Stop 06/10/17 at 11:23; Status DC Acetazolamide Sodium (Diamox Inj) 500 mg ONCE ONCE IV PUSH Last administered on 05/26/17 08:54; Start 05/26/17 at 09:00; Stop 05/26/17 at 09:01; Status DC Ceftriaxone Sodium 1000 mg/ Sodium Chloride 100 ml @ 200 mls/hr Q24H IV Last administered on 05/27/17 08:32; Start 05/26/17 at 09:00; Stop 05/27/17 at 15:41 ; Status DC Cefepime HCl 1000 mg/Sodium Chloride 100 ml @ 200 mls/hr Q12H IV Last administered on 06/03/17 05:32; Start 05/27/17 at 16:00; Stop 06/03/17 at 09:12 ; Status DC Sodium Chloride 250 ml @ 15 mls/hr ONCE ONCE IV Last administered on 09:45; Start 05/28/17 at 09:45; Stop 05/29/17 at 02:24; Status DC Acetaminophen (Tylenol) 650 mg Q4H PRN PO SEE LABEL COMMENTS; Start 05/28/17 at 10:00; Stop 06/10/17 at 11:23; Status DC Diphenhydramine HCl (Benadryl) 25 mg Q4H PRN PO SEE LABEL COMMENTS; Start 05/28 at 10:00; Stop 06/02/17 at 07:40; Status DC Furosemide (Lasix Inj) 20 mg ONCE ONCE IV PUSH ; Start 05/28/17 at 10:00; Stop 05/28/17 at 10:01; Status DC Insulin Detemir (Levemir Inj) 7 units Q12H SQ Last administered on 06/20/17 21:12; Start 05/28/17 at 21:00; Stop 06/21/17 at 07:27; Status DC Artificial Tears (Tears Naturale Opth Soln) 1 drop Q4H PRN EACH EYE DRY EYE; Start 05/29/17 at 21:15; Stop 06/12/17 at 07:10; Status DC Hydralazine HCl (Apresoline Inj) 20 mg Q4H PRN IV PUSH SBP >160 Last administered on 06/21/17 04:06; Start 05/31/17 at 07:45; Stop 06/21/17 at 07: 23; Status DC Lisinopril (Prinivil) 10 mg Q12HR PO Last administered on 06/20/17 21:12; Start 05/31/17 at 09:00; Stop 06/21/17 at 07:23; Status DC Artificial Tears (Tears Naturale Opth Soln) 1 drop Q8HR EACH EYE Last administered on 12/19/17at 16:09; Start 06/12/17 at 07:15; Stop 12/19/17 at 19: 17; Status DC Insulin Aspart (NovoLOG SUPPLEMENTAL SCALE) 1 Q6HR SQ Last administered on 18:00; Start 06/12/17 at 12:00; Stop 07/16/17 at 16:36; Status DC Sodium Chloride (Sodium Chloride) 2 gm ONCE ONCE PEG Last administered on 09:41; Start 06/12/17 at 07:00; Stop 06/12/17 at 07:12; Status DC Albuterol/ Ipratropium (Duoneb Neb) 1 ampule Q6HR NEB NEB Last administered on 06/16/17 03:46; Start 06/12/17 at 10:00; Stop 06/16/17 at 07:10; Status DC Insulin Aspart (NovoLOG INJ) 10 units ONCE ONCE SQ Last administered on 10:00; Start 06/12/17 at 10:00; Stop 06/12/17 at 10:32; Status DC Erythromycin Ethylsuccinate (Ees) 250 mg Q8HR PO ; Start 06/16/17 at 02:00; Stop 06/16/17 at 02:00; Status DC Methylnaltrexone Goldvein (Relistor Inj) 12 mg ONCE ONCE SQ Last administered on 06/16/17 01:40; Start 06/16/17 at 02:00; Stop 06/16/17 at 02:01; Status DC Erythromycin (Erythromycin Ec) 250 mg Q8HR PO Last administered on 06/18/17 12:27; Start 06/16/17 at 02:00; Stop 06/18/17 at 22:53; Status DC Albuterol/ Ipratropium (Duoneb Neb) 1 ampule Q6HR NEB NEB Last administered on 06/20/17 08:04; Start 06/16/17 at 10:00; Stop 06/20/17 at 09:24; Status DC Erythromycin Ethylsuccinate (Ees 400 Mg/5 ml Liq) 250 mg Q8H PO Last administered on 06/19/17 01:19; Start 06/19/17 at 00:00; Stop 06/19/17 at 06 :54; Status DC Polyethylene Glycol (Miralax) 17 gm DAILY PO ; Start 06/19/17 at 09:00; Stop 06/23/17 at 06:47; Status DC Albuterol/ Ipratropium (Duoneb Neb) 1 ampule Q6HR NEB NEB Last administered on 06/24/17 08:30; Start 06/20/17 at 10:00; Stop 06/24/17 at 09:59; Status DC Hydralazine HCl (Apresoline Inj) 10 mg Q1H PRN IV PUSH SBP >160 Last administered on 07/10/17 13:51; Start 06/21/17 at 07:30; Stop 07/12/17 at 00: 26; Status DC Lisinopril (Prinivil) 20 mg Q12HR PO Last administered on 08/22/17 21:16; Start 06/21/17 at 09:00; Stop 08/23/17 at 07:26; Status DC Labetalol HCl (Trandate Inj) 10 mg Q1H PRN IV PUSH SBP>160, DBP>90, HR>65 Last administered on 07/08/17 05:02; Start 06/21/17 at 07:30; Stop 07/12/17 at 00: 26; Status DC Nitroglycerin (Nitroglycerin 2% Oint) 2 inch Q6H PRN TOPICAL SBP>160, DBP>90 Last administered on 06/30/17 14:37; Start 06/21/17 at 08:00 Piperacillin Sod/ Tazobactam Sod 100 ml @ 200 mls/hr Q6H IV Last administered on 06/29/17 02:07; Start 06/21/17 at 09:00; Stop 06/29/17 at 08:59; Status DC Pharmacy Profile Note 0 ml @ 0 mls/hr UNSCH OTHER ; Start 06/21/17 at 07:30; Stop 06/23/17 at 06:46; Status DC Guaifenesin (Robitussin Liq) 400 mg Q8HR PEG Last administered on 06/29/17 06 :02; Start 06/21/17 at 14:00; Stop 06/29/17 at 13:59; Status DC Sodium Chloride (Sodium Chloride 3% Neb) 2 ml Q6HR NEB NEB Last administered on 06/29/17 08:21; Start 06/21/17 at 10:00; Stop 06/29/17 at 09:59; Status DC Insulin Detemir (Levemir Inj) 10 units Q12H SQ Last administered on 07/19/17 08:39; Start 06/21/17 at 09:00; Stop 07/19/17 at 09:26; Status DC Vancomycin HCl 1000 mg/Sodium Chloride 250 ml @ 250 mls/hr ONCE ONCE IV Last administered on 06/21/17 11:50; Start 06/21/17 at 12:00; Stop 06/21/17 at 12 :59; Status DC Vancomycin HCl 750 mg/Sodium Chloride 257.5 ml @ 250 mls/hr Q12H IV Last administered on 06/23/17 00:02; Start 06/22/17 at 00:00; Stop 06/23/17 at 06 :46; Status DC Miscellaneous Information SPECIFIC LAB TO BE ROLF... ONCE ONCE .XX ; Start at 23:45; Stop 06/22/17 at 23:46; Status DC Miscellaneous Information SPECIFIC LAB TO BE ROLF... ONCE ONCE .XX ; Start at 11:45; Stop 06/23/17 at 11:46; Status DC Polyethylene Glycol (Miralax) 17 gm BID PEG Last administered on 07/02/17 08: 35; Start 06/23/17 at 09:00; Stop 07/09/17 at 08:04; Status DC Albuterol/ Ipratropium (Duoneb Neb) 1 ampule Q6HR NEB NEB Last administered on 07/08/17 10:22; Start 07/04/17 at 10:00; Stop 07/08/17 at 09:59; Status DC Polyethylene Glycol (Miralax) 17 gm DAILY PEG Last administered on 10/02/17at 07: 59; Start 07/09/17 at 09:00; Stop 10/03/17 at 11:56; Status DC Clonidine (Catapres) 0.1 mg Q6H PRN PO SBP >160 Last administered on 16:22; Start 07/12/17 at 00:30; Stop 10/03/17 at 11:55; Status DC Heparin Sodium (Porcine) (Heparin Inj) 5,000 units Q8HR SQ Last administered on 12/24/17at 12:10; Start 07/15/17 at 08:00 Sodium Chloride 1,000 ml @ 42 mls/hr [id number] IV Last administered on 15:15; Start 07/14/17 at 14:45; Stop 07/15/17 at 08:00; Status DC Albuterol/ Ipratropium (Duoneb Neb) 2.5 ampule Q6HR NEB NEB ; Start 07/16/17 at 16:45; Stop 07/16/17 at 19:01; Status DC Hyoscyamine Sulfate (Levsin Liq) 0.125 mg BID PEG ; Start 07/16/17 at 21:00; Stop 07/16/17 at 21:00; Status DC Albuterol Sulfate (Albuterol Neb) 2.5 mg Q6HR NEB INH Last administered on 19:49; Start 07/16/17 at 22:00; Stop 07/20/17 at 21:59; Status DC Acetylcysteine (Mucomyst 20% Neb) 2 ml Q8HR NEB PRN NEB SECRETIONS; Start at 08:00; Stop 07/17/17 at 08:00; Status DC Acetylcysteine (Mucomyst 20% Neb) 2 ml Q8HR NEB PRN NEB SECRETIONS Last administered on 07/21/17 03:31; Start 07/17/17 at 08:00; Stop 07/21/17 at 07 :59; Status DC Trimethoprim/ Sulfamethoxazole (Bactrim 800-160 Mg/20 ml Liq) 20 ml Q12H PO ; Start 07/17/17 at 09:45; Stop 07/17/17 at 09:50; Status DC Trimethoprim/ Sulfamethoxazole (Bactrim 800-160 Mg/20 ml Liq) 20 ml Q12HR PEG Last administered on 07/19/17 21:27; Start 07/17/17 at 11:00; Stop 07/19/17 at 21:01; Status DC Insulin Detemir (Levemir Inj) 15 units Q12H SQ Last administered on 07/20/17 08:00; Start 07/19/17 at 21:00; Stop 07/20/17 at 08:26; Status DC Insulin Detemir (Levemir Inj) 18 units Q12H SQ Last administered on 07/22/17 13:46; Start 07/20/17 at 21:00; Stop 07/22/17 at 14:39; Status DC Trimethoprim/ Sulfamethoxazole (Bactrim 800-160 Mg/20 ml Liq) 20 ml Q12HR PEG Last administered on 07/21/17 08:12; Start 07/20/17 at 15:00; Stop 07/21/17 at 13:16; Status DC Albuterol/ Ipratropium (Duoneb Neb) 1 ampule ONCE ONCE NEB Last administered on 07/21/17 03:30; Start 07/21/17 at 03:30; Stop 07/21/17 at 03:31; Status DC Albuterol/ Ipratropium (Duoneb Neb) 1 ampule ONCE PRN NEB SHORTNESS OF BREATH; Start 07/21/17 at 04:15; Stop 07/21/17 at 07:30; Status DC Albuterol/ Ipratropium (Duoneb Neb) 1 ampule Q6HR NEB NEB Last administered on 07/25/17 09:05; Start 07/21/17 at 10:00; Stop 07/25/17 at 09:59; Status DC Acetylcysteine (Mucomyst 20% Neb) 2 ml Q8HR NEB PRN NEB SECRETIONS; Start at 07:00; Stop 07/21/17 at 07:24; Status DC Piperacillin Sod/ Tazobactam Sod 100 ml @ 200 mls/hr Q6H IV Last administered on 07/25/17 04:56; Start 07/21/17 at 10:00; Stop 07/25/17 at 07:50; Status DC Azithromycin 500 mg/Sodium Chloride 250 ml @ 250 mls/hr Q24H IV Last administered on 07/25/17 10:58; Start 07/21/17 at 11:00; Stop 07/25/17 at 13 :36; Status DC Insulin Aspart (NovoLOG SUPPLEMENTAL SCALE) 1 Q6HR SQ Last administered on at 06:47; Start 07/21/17 at 18:00; Stop 10/08/17 at 09:45; Status DC Insulin Detemir (Levemir Inj) 15 units Q12H SQ Last administered on 07/26/17 23:10; Start 07/22/17 at 21:00; Stop 07/27/17 at 09:00; Status DC Ceftolozane/ Tazobactam 1500 mg/Sodium Chloride 100 ml @ 100 mls/hr Q8H IV Last administered on 08/06/17 08:25; Start 07/25/17 at 09:00; Stop 08/06/17 at 12:58; Status DC Fluconazole/ Sodium Chloride 100 ml @ 100 mls/hr ONCE ONCE IV Last administered on 07/26/17 17:00; Start 07/26/17 at 17:00; Stop 07/26/17 at 17 :59; Status DC Insulin Detemir (Levemir Inj) 7 units Q12HR SQ Last administered on 09/14/17 07:32; Start 07/27/17 at 09:00; Stop 09/14/17 at 15:42; Status DC Furosemide (Lasix Liq) 40 mg ONCE ONCE NG Last administered on 07/29/17 17: 29; Start 07/29/17 at 16:00; Stop 07/29/17 at 16:02; Status DC Lactated Ringer's 1,000 ml @ 30 mls/hr Q24H PRN IV SEE LABEL COMMENTS; Start 08/03/17 at 06:30; Stop 08/06/17 at 06:29; Status DC Lidocaine/ Epinephrine (Xylocaine-Epi 1%-1:100,000 Inj) 20 ml STK-MED ONCE .ROUTE Last administered on 08/05/17 17:58; Start 08/05/17 at 17:58; Stop 08/05/17 at 17:59; Status DC Colistin Sulfate (Coly-Mycin M Neb) 75 mg Q8HR NEB NEB Last administered on 08:25; Start 08/06/17 at 16:00; Stop 08/12/17 at 15:59; Status DC Furosemide (Lasix Liq) 40 mg ONCE ONCE NG Last administered on 08/08/17 12: 54; Start 08/08/17 at 12:15; Stop 08/08/17 at 12:16; Status DC Albuterol/ Ipratropium (Duoneb Neb) 1 ampule Q6HR NEB PRN NEB WHEEZING Last administered on 10/16/17 07:17; Start 08/10/17 at 14:00; Stop 10/25/17 at 08: 28; Status DC Lisinopril (Prinivil) 30 mg Q12HR PO Last administered on 08/24/17 21:00; Start 08/23/17 at 09:00; Stop 08/25/17 at 07:46; Status DC Lisinopril (Prinivil) 40 mg Q12HR PO Last administered on 09/15/17 20:54; Start 08/25/17 at 09:00; Stop 09/15/17 at 22:16; Status DC Amlodipine Besylate (Norvasc) 5 mg DAILY PO Last administered on 09/01/17at 09:24 ; Start 08/31/17 at 09:00; Stop 09/02/17 at 06:48; Status DC Amlodipine Besylate (Norvasc) 10 mg DAILY PO Last administered on 10/02/17at 08: 00; Start 09/02/17 at 09:00; Stop 10/03/17 at 11:55; Status DC Metoprolol Tartrate (Lopressor) 12.5 mg Q12HR PO Last administered on 09/06/17at 08:46; Start 09/05/17 at 21:00; Stop 10/03/17 at 11:55; Status DC Miscellaneous (Pill Splitter) 1 ea UNSCH PRN OTHER SEE LABEL COMMENTS; Start at 11:00 Trimethoprim/ Sulfamethoxazole (Bactrim 800-160 Mg/20 ml Liq) 20 ml Q12H PEG ; Start 09/09/17 at 20:00; Stop 09/09/17 at 20:00; Status DC Trimethoprim/ Sulfamethoxazole (Bactrim Ds 800-160 Mg) 1 tab Q12HR PEG Last administered on 09/29/17at 09:36; Start 09/09/17 at 21:00; Stop 09/29/17 at 22:01 ; Status DC Insulin Detemir (Levemir Inj) 12 units Q12HR SQ Last administered on 09/20/17at 20:49; Start 09/14/17 at 21:00; Stop 09/21/17 at 08:28; Status DC Lisinopril (Prinivil) 40 mg DAILY PO Last administered on 09/19/17at 09:39; Start 09/16/17 at 09:00; Stop 09/20/17 at 17:11; Status DC Sodium Polystyrene Sulfonate (Kayexalate Liq) 15 gm ONCE ONCE PO Last administered on 09/16/17at 11:01; Start 09/16/17 at 10:45; Stop 09/16/17 at 10:46 ; Status DC Acetaminophen (Tylenol) 500 mg Q6H PRN PEG Fever > 100.0F Last administered on 09/16/17at 16:36; Start 09/16/17 at 16:15; Stop 10/26/17 at 06:36; Status DC Dextrose 1,000 ml @ 75 mls/hr [id number] IV Last administered on 09/20/17at 11:09 ; Start 09/18/17 at 15:30; Stop 09/20/17 at 17:11; Status DC Lisinopril (Prinivil) 20 mg DAILY PO ; Start 09/21/17 at 09:00; Stop 09/21/17 at 23:55; Status DC Metoclopramide HCl (Reglan Inj) 10 mg ONCE ONCE IV PUSH Last administered on at 03:37; Start 09/21/17 at 03:15; Stop 09/21/17 at 03:16; Status DC Insulin Detemir (Levemir Inj) 12 units HS SQ Last administered on 09/26/17at 21: 00; Start 09/21/17 at 21:00; Stop 09/27/17 at 17:31; Status DC Calcium Gluconate 1 gm/Dextrose 110 ml @ 110 mls/hr ONCE ONCE IV Last administered on 09/21/17at 11:43; Start 09/21/17 at 11:15; Stop 09/21/17 at 12:14 ; Status DC Sodium Polystyrene Sulfonate (Kayexalate Liq) 15 gm QID PEG Last administered on 09/22/17at 09:30; Start 09/21/17 at 13:00; Stop 09/22/17 at 09:02; Status DC Insulin Human Regular (NovoLIN R INJ) 10 units ONCE ONCE IV PUSH Last administered on 09/21/17at 11:42; Start 09/21/17 at 11:30; Stop 09/21/17 at 11:31 ; Status DC Dextrose (D50w (Vial) Inj) 50 ml ONCE ONCE IV PUSH Last administered on at 11:42; Start 09/21/17 at 11:30; Stop 09/21/17 at 11:31; Status DC Albuterol Sulfate (Albuterol Concentrated Neb) 10 mg ONCE ONCE INH Last administered on 09/21/17at 11:30; Start 09/21/17 at 11:30; Stop 09/21/17 at 11:31 ; Status DC Sodium Chloride 500 ml @ 100 mls/hr Q5H IV Last administered on 09/21/17at 13: 38; Start 09/21/17 at 13:00; Stop 09/21/17 at 17:59; Status DC Sodium Chloride 1,000 ml @ 42 mls/hr [id number] IV Last administered on at 08:34; Start 09/21/17 at 21:00; Stop 09/24/17 at 08:24; Status DC Hydralazine HCl (Apresoline) 10 mg Q8HR PEG Last administered on 12/24/17at 12: 10; Start 09/24/17 at 14:00 Hydralazine HCl (Apresoline) 10 mg ONCE ONCE PEG Last administered on at 11:49; Start 09/24/17 at 09:00; Stop 09/24/17 at 09:01; Status DC Cefepime HCl 2000 mg/Sodium Chloride 100 ml @ 200 mls/hr Q8H IV Last administered on 09/29/17at 05:35; Start 09/25/17 at 12:00; Stop 09/29/17 at 08:46 ; Status DC Sodium Polystyrene Sulfonate (Kayexalate Liq) 15 gm ONCE ONCE RECTAL Last administered on 09/26/17at 10:51; Start 09/26/17 at 09:15; Stop 09/26/17 at 09:16 ; Status DC Sodium Polystyrene Sulfonate (Kayexalate Liq) 15 gm ONCE ONCE PEG Last administered on 09/27/17at 18:11; Start 09/27/17 at 17:15; Stop 09/27/17 at 17:16 ; Status DC Insulin Detemir (Levemir Inj) 10 units BID SQ Last administered on 09/29/17at 09 :37; Start 09/27/17 at 21:00; Stop 09/29/17 at 15:14; Status DC Doxazosin Mesylate (Cardura) 1 mg DAILY PO Last administered on 10/02/17at 07:59 ; Start 09/28/17 at 10:00; Stop 10/03/17 at 11:55; Status DC Ceftolozane/ Tazobactam 1500 mg/Sodium Chloride 100 ml @ 100 mls/hr Q8H IV Last administered on 09/30/17at 01:51; Start 09/29/17 at 10:00; Stop 09/30/17 at 10:38; Status DC Lactobacillus Acidophilus (Lactinex) 1 tab Q12HR PO Last administered on at 09:08; Start 09/29/17 at 21:00; Stop 10/03/17 at 11:55; Status DC Insulin Human NPH (NovoLIN N INJ) 7 units TID SQ Last administered on at 18:16; Start 09/29/17 at 18:00; Stop 10/01/17 at 19:07; Status DC Acetylcysteine (Mucomyst 10% Neb) 2 ml Q6HR NEB NEB ; Start 09/29/17 at 16:00; Stop 09/29/17 at 16:21; Status DC Acetylcysteine (Mucomyst 10% Neb) 2 ml Q6HR NEB NEB Last administered on at 08:30; Start 09/29/17 at 14:30; Stop 10/03/17 at 14:29; Status DC Metoclopramide HCl (Reglan Inj) 10 mg ONCE ONCE IV PUSH Last administered on at 22:11; Start 09/29/17 at 21:30; Stop 09/29/17 at 21:31; Status DC Trimethoprim/ Sulfamethoxazole (Bactrim 800-160 Mg/20 ml Liq) 20 ml BID PEG Last administered on 10/03/17 09:08; Start 09/29/17 at 22:02; Stop 10/03/17 at 18 :48; Status DC Colistin Sulfate (Coly-Mycin M Neb) 75 mg Q8HR NEB NEB Last administered on at 07:29; Start 09/30/17 at 16:00; Stop 10/21/17 at 15:59; Status DC Insulin Human NPH (NovoLIN N INJ) 10 units TID SQ Last administered on at 18:43; Start 10/02/17 at 09:00; Stop 10/07/17 at 12:30; Status DC Sodium Polystyrene Sulfonate (Kayexalate Liq) 15 gm BID PO Last administered on 10/03/17at 10:09; Start 10/03/17 at 09:00; Stop 10/03/17 at 11:55; Status DC Sodium Chloride 1,000 ml @ 100 mls/hr Q10H IV Last administered on 10/03/17at 20 :26; Start 10/03/17 at 08:30; Stop 10/03/17 at 22:36; Status DC Levofloxacin/ Dextrose 100 ml @ 100 mls/hr Q24H IV Last administered on 11:46; Start 10/03/17 at 10:00; Stop 10/03/17 at 20:03; Status DC Amlodipine Besylate (Norvasc) 10 mg DAILY PEG Last administered on 12/24/17 09 :43; Start 10/04/17 at 09:00 Calcium/Vitamin D (Oscal-D 250-125) 250 mg TID PEG Last administered on 12:09; Start 10/03/17 at 13:00 Cholecalciferol (Vitamin D3) 5,000 units DAILY PEG Last administered on 09:42; Start 10/04/17 at 09:00 Clonidine (Catapres) 0.1 mg Q6H PRN PEG SBP >160 Last administered on 00:23; Start 10/03/17 at 12:30 Doxazosin Mesylate (Cardura) 1 mg DAILY PEG Last administered on 11/18/17at 09: 04; Start 10/04/17 at 09:00; Stop 11/22/17 at 17:42; Status DC Lactobacillus Acidophilus (Lactinex) 1 tab Q12HR PEG Last administered on 09:42; Start 10/03/17 at 21:00 Metoprolol Tartrate (Lopressor) 12.5 mg Q12HR PEG Last administered on 19:28; Start 10/03/17 at 21:00; Stop 10/26/17 at 08:47; Status DC Sodium Polystyrene Sulfonate (Kayexalate Liq) 15 gm BID PEG Last administered on 10/03/17 21:00; Start 10/03/17 at 21:00; Stop 10/05/17 at 14:49; Status DC Polyethylene Glycol (Miralax) 17 gm DAILY PRN PEG Constipation; Start 10/03/17 at 12:00 Protein (Beneprotein Powder) 1 pack TID PRN G-TUBE Constipation; Start 10/03/17 at 12:00 Albuterol Sulfate (Albuterol Neb) 2.5 mg Q2HR NEB PRN NEB WHEEZING Last administered on 4/25/18at 16:19; Start 10/03/17 at 21:45 Dextrose 1,000 ml @ 30 mls/hr Q24H IV ; Start 10/03/17 at 22:45; Status Cancel Dextrose (D50w (Vial) Inj) 25 ml ONCE ONCE IV PUSH Last administered on at 22:42; Start 10/03/17 at 22:45; Stop 10/03/17 at 22:46; Status DC Furosemide (Lasix Inj) 40 mg ONCE ONCE IV PUSH Last administered on 10/03/17at 22:46; Start 10/03/17 at 22:45; Stop 10/03/17 at 22:46; Status DC Dextrose 500 ml @ 10 mls/hr Q24H IV Last administered on 10/04/17at 15:49; Start 10/03/17 at 23:00; Stop 10/05/17 at 14:49; Status DC Fentanyl Citrate (fentaNYL INJ) 100 mcg STK-MED ONCE .ROUTE ; Start 10/03/17 at 22:47; Stop 10/03/17 at 22:48; Status DC Fentanyl Citrate (fentaNYL INJ) 100 mcg NOW ONCE IV PUSH ; Start 10/03/17 at 23: 00; Stop 10/03/17 at 23:01; Status DC Fentanyl Citrate (fentaNYL INJ) 50 mcg ONCE ONCE IV PUSH Last administered on 10/03/17at 23:00; Start 10/03/17 at 23:00; Stop 10/03/17 at 23:10; Status DC Fentanyl Citrate (fentaNYL INJ) 50 mcg Q1H PRN IV PUSH SEDATION; Start 10/03/17 at 23:00; Stop 10/29/17 at 10:46; Status DC Chlorhexidine Gluconate (Peridex 0.12% Liq) 15 ml BID@08,20 MT Last administered on 10/31/17at 21:41; Start 10/04/17 at 08:00; Stop 11/01/17 at 11:43; Status DC Furosemide (Lasix Inj) 40 mg ONCE ONCE IV PUSH Last administered on 10/04/17at 05:52; Start 10/04/17 at 05:00; Stop 10/04/17 at 05:01; Status DC Furosemide (Lasix Inj) 40 mg Q6HR IV PUSH Last administered on 10/06/17at 05:28; Start 10/04/17 at 12:00; Stop 10/06/17 at 11:00; Status DC Insulin Human NPH (NovoLIN N INJ) 5 units BID@08,17 SQ Last administered on 10/10at 08:05; Start 10/07/17 at 17:00; Stop 10/10/17 at 11:33; Status DC Insulin Detemir (Levemir Inj) 7 units Q12H SQ Last administered on 10/25/17at 23 :55; Start 10/08/17 at 12:00; Stop 10/26/17 at 06:36; Status DC Dextrose (D50w (Vial) Inj) 50 ml UNSCH PRN IV PUSH HYPOGLYCEMIA-SEE COMMENTS Last administered on 10/28/17at 17:42; Start 10/08/17 at 09:45; Stop 11/04/17 at 12 :34; Status DC Glucagon (Glucagon Inj) 1 mg UNSCH PRN OTHER HYPOGLYCEMIA-SEE COMMENTS Last administered on 10/14/17at 00:45; Start 10/08/17 at 09:45; Stop 11/04/17 at 12:34; Status DC Insulin Human Regular (NovoLIN R SUPPLEMENTAL SCALE) 1 Q6HR SQ Last administered on 11/04/17at 06:00; Start 10/08/17 at 12:00; Stop 11/04/17 at 12:27; Status DC Water (Free Water) 250 ml Q8HR G-TUBE Last administered on 10/20/17at 05:20; Start 10/18/17 at 14:00; Stop 10/20/17 at 10:15; Status DC Water (Free Water) VOLUME OF WATER: ( 200 ) ML Q6HR G-TUBE Last administered on 10/27/17at 05:49; Start 10/20/17 at 12:00; Stop 10/27/17 at 10:02; Status DC Albuterol/ Ipratropium (Duoneb Neb) 1 ampule Q6HR NEB NEB Last administered on 10/29/17at 08:34; Start 10/25/17 at 10:00; Stop 10/29/17 at 09:59; Status DC Insulin Detemir (Levemir Inj) 8 units Q12H SQ Last administered on 12/02/17at 11: 51; Start 10/26/17 at 12:00; Stop 12/02/17 at 19:10; Status DC Acetaminophen (Tylenol 650 Mg/ 20 ml Liq) 650 mg Q6H PRN PEG fever Last administered on 12/15/17at 05:51; Start 10/26/17 at 06:45 Oxycodone HCl (Roxicodone Intensol Liq) 5 mg Q6H PRN PO pain 6-10 Last administered on 12/21/17at 10:05; Start 10/29/17 at 11:00 Iohexol (Omnipaque 350 Inj) 75 ml STK-MED ONCE IVCONTRAST Last administered on 11/01/17at 16:59; Start 11/01/17 at 16:59; Stop 11/01/17 at 17:00; Status DC Dextrose (D50w (Vial) Inj) 50 ml UNSCH PRN IV PUSH HYPOGLYCEMIA-SEE COMMENTS Last administered on 12/08/17at 12:27; Start 11/04/17 at 12:30 Glucagon (Glucagon Inj) 1 mg UNSCH PRN OTHER HYPOGLYCEMIA-SEE COMMENTS; Start 11/04/17 at 12:30 Insulin Human Regular (NovoLIN R SUPPLEMENTAL SCALE) 1 Q6H SQ Last administered on 12/23/17at 13:23; Start 11/04/17 at 12:30 Dextrose (D50w (Vial) Inj) 25 ml ONCE ONCE IV PUSH Last administered on at 12:54; Start 11/04/17 at 12:30; Stop 11/04/17 at 12:35; Status DC Metoclopramide HCl (Reglan Inj) 10 mg Q8HR IV PUSH Last administered on at 05:41; Start 11/05/17 at 22:00; Stop 11/07/17 at 13:32; Status DC Amoxicillin/ Clavulanate Potassium (Augmentin 600 Mg/5 ml Liq) 600 mg Q12H PO Last administered on 11/13/17at 23:56; Start 11/07/17 at 12:00; Stop 11/14/17 at 11:59; Status DC Metoclopramide HCl (Reglan Liq) 10 mg Q8HR PO Last administered on 11/18/17at 14:08; Start 11/07/17 at 14:30; Status Future Hold Albuterol/ Ipratropium (Duoneb Neb) 1 ampule Q6HR NEB NEB Last administered on 11/12/17 09:08; Start 11/08/17 at 10:30; Stop 11/12/17 at 10:29; Status DC Cholestyramine Resin (Questran Light Pkt) 4 gm BID PRN PEG DIARRHEA Last administered on 12/19/17at 09:47; Start 11/12/17 at 13:30 Furosemide (Lasix Inj) 20 mg BID@09,18 IV PUSH Last administered on 11/14/17at 08:32; Start 11/13/17 at 17:00; Stop 11/14/17 at 14:49; Status DC Furosemide (Lasix Inj) 20 mg DAILY IV PUSH Last administered on 11/15/17at 09:00 ; Start 11/15/17 at 09:00; Stop 11/16/17 at 08:59; Status DC Sodium Chloride (NS Flush) 2 ml BID IV FLUSH ; Start 11/16/17 at 10:45; Status Cancel Sodium Chloride (NS Flush) 2 ml BID IV FLUSH Last administered on 11/21/17at 09: 00; Start 11/16/17 at 21:00; Stop 11/21/17 at 20:44; Status DC Albuterol Sulfate (Proventil) 2 mg ONCE ONCE PO Last administered on 17:16; Start 11/18/17 at 15:30; Stop 11/18/17 at 15:31; Status DC Sodium Chloride 250 ml @ 250 mls/hr BOLUS ONCE IV Last administered on at 15:26; Start 11/18/17 at 14:30; Stop 11/18/17 at 15:29; Status DC Insulin Human Regular (NovoLIN R INJ) 10 units ONCE ONCE SQ Last administered on 11/18/17 18:23; Start 11/18/17 at 18:00; Stop 11/18/17 at 18:18; Status DC Dextrose (D50w (Syr) Inj) 12.5 ml ONCE ONCE IV PUSH Last administered on 18:22; Start 11/18/17 at 18:00; Stop 11/18/17 at 18:18; Status DC Furosemide (Lasix) 20 mg DAILY PO Last administered on 12/03/17at 10:34; Start at 09:00; Stop 12/03/17 at 17:03; Status DC Lisinopril (Prinivil) 5 mg ONCE ONCE PEG Last administered on 11/22/17 17:56 ; Start 11/22/17 at 17:45; Stop 11/22/17 at 17:49; Status DC Lisinopril (Prinivil) 5 mg DAILY PEG Last administered on 12/24/17 09:42; Start 11/23/17 at 09:00 Diphenoxylate HCl/ Atropine (Lomotil 2.5-0.025 Mg Liq) 5 ml Q6H PRN PO LOOSE STOOLS Last administered on 12/24/17 10:36; Start 11/25/17 at 13:15 Insulin Detemir (Levemir Inj) 12 units Q12H SQ Last administered on 12/23/17 23:14; Start 12/03/17 at 00:00 Furosemide (Lasix) 40 mg DAILY PO Last administered on 12/24/17 09:42; Start 12/04/17 at 09:00; Status Future hold Povidone Iodine (Betadine 10% Top Soln) 1 applic Q12HR EXTERNAL Last administered on 12/19/17 12:21; Start 12/06/17 at 10:00; Stop 12/19/17 at 19:16 ; Status DC Ondansetron HCl (Zofran Inj) 4 mg Q6HR PRN IV PUSH NAUSEA OR VOMITING Last administered on 12/20/17 19:02; Start 12/08/17 at 05:00 Water (Free Water) VOLUME OF WATER: ( 250 ) ML Q6HR PEG ; Start 12/13/17 at 18: 00; Stop 12/13/17 at 18:00; Status DC Water (Free Water) 250 ml Q6HR PO Last administered on 12/24/17at 12:00; Start 12/13/17 at 18:00 Artificial Tears (Tears Naturale Opth Soln) 1 drop Q8H PRN EACH EYE DRY EYES; Start 12/19/17 at 19:30 Piperacillin Sod/ Tazobactam Sod 100 ml @ 200 mls/hr Q6H IV Last administered on 12/24/17 16:32; Start 12/20/17 at 17:00; Stop 12/27/17 at 23:00 Levofloxacin/ Dextrose 150 ml @ 100 mls/hr Q24H IV Last administered on at 18:17; Start 12/20/17 at 16:00; Stop 12/21/17 at 12:33; Status DC Sodium Chloride 1,000 ml @ 70 mls/hr [id number] IV Last administered on at 08:54; Start 12/20/17 at 18:00; Stop 12/21/17 at 14:34; Status DC Bacitracin (Baciguent Oint) 1 applic Q12HR TOPICAL Last administered on at 09:43; Start 12/21/17 at 10:00 Levofloxacin (Levaquin) 750 mg Q24H PO Last administered on 12/23/17at 16:13; Start 12/21/17 at 18:00; Stop 12/24/17 at 08:04; Status DC Linezolid (Zyvox) 600 mg Q12HR PO Last administered on 12/24/17at 09:42; Start 12/21/17 at 21:00 Furosemide (Lasix Inj) 20 mg ONCE ONCE IV PUSH Last administered on 12/21/17at 14:57; Start 12/21/17 at 14:45; Stop 12/21/17 at 14:46; Status DC Diphenoxylate HCl/ Atropine (Lomotil 2.5-0.025 Mg Liq) 5 ml Q6H PRN PO DIARRHEA ; Start 12/22/17 at 08:30 Colistin Sulfate (Coly-Mycin M Neb) 75 mg Q8HR NEB NEB Last administered on at 16:19; Start 12/24/17 at 10:00; Stop 12/31/17 at 09:59 A/P Problem List: (1) Acute ischemic left middle cerebral artery (MCA) stroke ICD Code: I63.512 - Cerebral infarction due to unspecified occlusion or stenosis of left middle cerebral artery Status: Acute (2) Acute respiratory failure ICD Code: J96.00 - Acute respiratory failure, unspecified whether with hypoxia or hypercapnia (3) Right hemiplegia ICD Code: G81.91 - Hemiplegia, unspecified affecting right dominant side Status: Acute (4) Sacral decubitus ulcer ICD Code: L89.159 - Pressure ulcer of sacral region, unspecified stage Status: Chronic (5) HCAP (healthcare-associated pneumonia) ICD Code: J18.9 - Pneumonia, unspecified organism Status: Acute (6) 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 She underwent ORIF on 04/21/17 and on 04/24 a stroke alert was called as she was found to have right hemiparesis with left gaze. She has a poor prognosis based on her lack of overall recovery over the last 6+ months. Patient has HAD ISSUES WITH PROJECTILE VOMITING OF TUBE FEED-- WILL HOLD TUBE FEEDS AT THIS TIME AND RESTART IN 3 HOURS 1. Respiratory failure, chronic tracheostomy: Continue pulmonary toilet, trach care. Duoneb as needed. Trach management per pulmonology. On T-piece. No longer requiring BiPAP. 2. Urinary retention: Resolved. 3. UTI: Urine culture grew Aerococcus. Completed course of Augmentin. 4. Left MCA stroke: 5.5 mm of [id number] subfalcine herniation, diagnosed . Was not a candidate for thrombolysis at the time. Neurologic condition remained poor. She has persistent right-sided hemiparesis. Neurology and neurosurgery have signed off. Continue daily aspirin. 5. Aspiration pneumonia: CXR shows patchy infiltrates. Patient had witnessed aspiration. Now on BiPAP. Continue Levaquin, Zosyn. Appreciate infectious disease recommendations. 6. Hypertension: Continue Lasix, lisinopril, amlodipine. 7. Chronic systolic congestive heart failure: Echocardiogram 10/06/17 showed ejection fraction 25-30%. Continue Lasix. 8. Large left pneumothorax: Resolved. 9. Hepatitis C: LFTs normalized. 10. Diabetes mellitus: Patient initially presented with DKA. Continue Levemir. Monitor Accu-Cheks and cover with sliding scale insulin.-HOLD INSULIN IF NOT GETTING TUBE FEEDS 11. FEN: Glucerna per PEG tube. Tube feeds held following aspiration. Restart at lower rate and gradually increase to goal. Continue free water flushes. 12. Loose stools: C. difficile negative on multiple occasions, most recently . Continue Lactinex. Continue Questran. Likely secondary to tube feeds. Increased frequency of loose stools reported by nursing. Continue Lomotil. Consult GI. 13. Anal fissure: Continue wound care. 14. DVT prophylaxis: Heparin. 15. LUQ abdomen wound: Wound care. Bacitracin ointment. Discharge Planning Aggressive therapy, full code per palliative. Needs placement Problem Qualifiers (1) Acute respiratory failure: Qualified Codes: J96.00 - Acute respiratory failure, unspecified whether with hypoxia or hypercapnia (2) Sacral decubitus ulcer: Qualified Codes: L89.152 - Pressure ulcer of sacral region, stage 2 (3) Chronic respiratory failure: Qualified Codes: J96.11 - Chronic respiratory failure with hypoxia Ricardo Shafer DO Dec 24, 2017 17:00
[2017-12-24] MEDS: ONDANSETRON HCL 4 MG/2 ML VIAL IV PUSH PRN (20:41)
--- NOTE | 2017-12-24 22:01 | RADRPT ---
EXAM DATE/TIME: 12/24/2017 21:25 [facility] COMPARISON: CHEST SINGLE AP, December 21, 2017, 5:51. INDICATIONS : Short of breath. MEDICAL HISTORY : Stroke. Hypertension Diabetes mellitus type II. SURGICAL HISTORY : None. ENCOUNTER: Subsequent ACUITY: 2 weeks PAIN SCORE: Non-responsive. LOCATION: Bilateral chest FINDINGS: Mild, patchy bibasilar predominant consolidation seen of both lungs, right more so the left. A small right pleural effusion is suspected. I don't see a pneumothorax. Heart size stable, within normal limits. Tracheostomy tube again noted. CONCLUSION: Worsening bibasilar consolidation and right pleural effusion. Obdulio Simms MD on December 24, 2017 at 21:57 Board Certified Radiologist. This report was verified electronically.
[2017-12-25] VITALS (8 sets, daily range): BP systolic 142–149; BP diastolic 64–73; PULSE 69–87; RESP 14–18; TEMP 97.5–98.9; O2SAT 93–99
[2017-12-25] MEDS: DIPHENOXYLATE/ATROPINE 2.5 MG/0.025 MG/5 ML CUP PO PRN (00:40)
[2017-12-25] MEDS: PIPERACIL-TAZO 4.5 GM PREMIX 100 ML IV SCH ×4 (04:32→22:09)
[2017-12-25] MEDS: FREE WATER PO SCH ×4 (06:00→17:26)
[2017-12-25] MEDS: HEPARIN SODIUM - SQ 10,000 UNITS/ML VIAL SQ SCH ×3 (06:22→22:09)
[2017-12-25] MEDS: hydrALAZINE HCL 10 MG TAB PEG SCH ×3 (06:22→22:07)
[2017-12-25] MEDS: INSULIN NovoLIN REGULAR SUPPLEMENTAL SCALE SQ SCH ×3 (06:30→18:30)
[2017-12-25 07:49] LABS: AUTOMATED NEUTROPHIL # 15.1 TH/MM3 (1.8-7.7); BASOPHIL # 0.1 TH/MM3 (0-0.2); BASOPHIL % 0.6 % (0.0-2.0); EOSINOPHIL # 0.4 TH/MM3 (0-0.4); EOSINOPHIL % 2.2 % (0.0-4.0); HEMATOCRIT 27.2 % (35.0-46.0); HEMOGLOBIN 9.4 GM/DL (11.6-15.3); LYMPH % 10.5 % (9.0-44.0); MEAN CELL VOLUME 97.7 FL (80.0-100.0); MEAN CORPUSCULAR HEMOGLOBIN 33.7 PG (27.0-34.0); MEAN CORPUSCULAR HGB CONC 34.6 % (32.0-36.0); MEAN PLATELET VOLUME 7.9 FL (7.0-11.0); MONO % 5.6 % (0.0-8.0); NEUT % 81.1 % (16.0-70.0); PLATELET COUNT 360 TH/MM3 (150-450); RED BLOOD COUNT 2.78 MIL/MM3 (4.00-5.30); RED CELL DISTRIBUTION WIDTH 13.6 % (11.6-17.2); WHITE BLOOD COUNT 18.6 TH/MM3 (4.0-11.0)
[2017-12-25 08:24] LABS: ALBUMIN 2.4 GM/DL (3.4-5.0); ALKALINE PHOSPHATASE 249 U/L (45-117); ALT (GPT) 37 U/L (10-53); AST (GOT) 31 U/L (15-37); BLOOD UREA NITROGEN 19 MG/DL (7-18); CALCIUM 8.9 MG/DL (8.5-10.1); CHLORIDE 101 MEQ/L (98-107); CREATININE 0.65 MG/DL (0.50-1.00); GLOMERULAR FILTRATION RATE 89 ML/MIN (>89); GLUCOSE,RANDOM 160 MG/DL (74-106); MAGNESIUM 2.1 MG/DL (1.5-2.5); PHOSPHORUS 2.7 MG/DL (2.5-4.9); SODIUM (NA) 141 MEQ/L (136-145); TOTAL BILIRUBIN ADULT 0.3 MG/DL (0.2-1.0); TOTAL PROTEIN 6.8 GM/DL (6.4-8.2)
[2017-12-25] MEDS: CHOLECALCIFEROL (VIT D3) 5000 UNIT CAP PEG SCH (08:26)
[2017-12-25] MEDS: CHOLESTYRAMINE LIGHT 4 GM PACKAGE PEG SCH ×2 (08:26→22:10)
[2017-12-25] MEDS: FUROSEMIDE 40 MG TAB PO SCH (08:27)
[2017-12-25] MEDS: CALCIUM/VITAMIN D 250 MG/125 U TAB PEG SCH ×3 (08:27→17:26)
[2017-12-25] MEDS: LISINOPRIL 5 MG TAB PEG SCH (08:27)
[2017-12-25] MEDS: LINEZOLID 600 MG TAB PO SCH ×2 (08:27→22:07)
[2017-12-25] MEDS: LANSOPRAZOLE SOLUTAB 30 MG TAB NG SCH (08:27)
[2017-12-25] MEDS: LACTOBACILLUS ACIDOPHILUS TAB PEG SCH ×2 (08:27→22:07)
[2017-12-25] MEDS: BACITRACIN TOP OINT 15 GM TUBE TOPICAL SCH ×2 (08:28→22:10)
[2017-12-25] MEDS: CALCIUM POLYCARBOPHIL 625 MG TAB PO SCH ×2 (08:28→22:07)
[2017-12-25 08:42] LABS: BANDS 12 % (0-6); LYMPHOCYTES 9 % (9-44); MONOCYTES 4 % (0-8); NEUTROPHIL # MANUAL DIFF 15.3 TH/MM3 (1.8-7.7); POLYS (SEG NEUTROPHILS) 70 % (16-70)
[2017-12-25] MEDS: ASPIRIN 325 MG TAB DOBHOFF SCH (09:08)
[2017-12-25] MEDS: RESP: COLISTIN 150 MG VIAL NEB SCH ×3 (09:24→23:45)
--- NOTE | 2017-12-25 10:45 | HHI.PR ---
Subjective Remarks non communicative eyes opened spontaneously, seems to understand when i talk to her, but would not follow commands to squeez hands will track with eyes and look afebrile Objective Vital Signs Date Time Temp Pulse Resp B/P (MAP) Pulse Ox O2 Delivery O2 Flow Rate FiO2 12/25/17 09:35 99 T-piece 10.00 50 12/25/17 07:00 98.9 82 16 142/68 (92) 97 12/25/17 04:00 98.2 87 16 142/68 (92) 93 12/24/17 20:00 98.8 92 16 131/65 (87) 97 12/24/17 20:00 98 T-Piece 45 12/24/17 16:45 98.0 88 155/62 (93) 93 12/24/17 16:30 99 T-piece 6.00 35 12/24/17 16:19 91 T-piece 6.00 35 12/24/17 11:18 98.0 65 14 110/70 (83) 99 12/24/17 10:53 100 T-piece 8.00 35 I/O 12/24/17 12/24/17 12/24/17 12/25/17 12/25/17 12/25/17 07:00 15:00 23:00 07:00 15:00 23:00 Intake Total 1875 ml 920 ml 100 ml Output Total 0 ml 0 ml Balance 1875 ml 0 ml 920 ml 100 ml IV Total 100 ml Tube Feeding 1025 ml 420 ml Other 750 ml 500 ml 100 ml Tube Feeding Residual Discard 0 ml 0 ml # Voids 4 2 3 # Bowel Movements 3 2 3 Result Diagram: 12/25/17 0736 12/25/17 0736 Procedures Tracheostomy 05/15/17 PEG 05/16/17 Objective Remarks chronically ill, trach dependent pt non communicative but able to track eyes , seems to understand but does not follow commands heart rate regular, hypoechoic lungs are decreased air entry, limited exam due to trach sounds abdomen soft no moser no rectal bag no calf asymmetry Right hand mild edema from iv has bilateral LE contracture A/P Assessment and Plan 77-year-old female [id number] female with: New sepsis with pseudomonas pneumonia- on Zosyn total 7 days ID notes 12/24/17 reviewed Right pleural effusion with requirement of bipap on 12/20/17 thought to be secondary to aspiration pneumonia as well will need to watch for possible empyema- requiring thoracocentesis however, question whether this is truly just from pneumonia- as xray is reading improvement/ worsening within days between 12/20 to now possible this is secondary to pulmonary edema/ fluid overload check BNP today pt with EF 25% and diastolic heart failure will give lasix 40mg iv one dose today if BNP is elevated will consider diuresing her aggressively for next 24-48hrs and repeat CXR - if no improvement, then to consider US guided thoracocentesis for parapneumonic effusions DKA and hip fracture on 04/20/17. s/p ORIF on 04/21/17 LEFT MCA infarct- stroke alert on 04/24 5.5 mm of [id number] subfalcine herniation, diagnosed 04/24. Not a candidate for thrombolysis at that time. Increasing edema seen on repeat CT 04/28 with a reduction in midline shift on another repeat on 04/30 trach 05/15/17 and PEG 05/16/17 Hypertension CHF. Echo on October 06, 2017. EF 25-30%. Chronic tracheostomy/respiratory failure on October 22, 2017 On trach. Still requiring supplementary oxygen. Nebs when necessary. Pulmonary following. Elevated D-dimer Ordered 10/31 for increasing FiO2 demand CT pulmonary angiogram negative for acute pulmonary embolism. Likely from chronic illness. Right upper extremity significantly bigger than the left. Ultrasound studies did not reveal any DVT. Elevated right upper extremity. History of Large left pneumothorax Resolved Chest tube placed 05/07, discontinued 05/12/17 Hepatitis C Negative genotype/viral load Diabetes mellitus SSI Novolin R High-dose scale Levemir insulin 8u Q12. FEN PEG tube feeding with Glucerna 1.5 goal 45 cc/hr, per nutrition rec 10/20/17. aggressive PT Discharge Planning Per clinical progress and family discussions Tucker Cheek MD Dec 25, 2017 10:45
--- NOTE | 2017-12-25 11:24 | HHI.GIFU ---
Subjective Remarks Pt resting in bed. Tolerating TF @ 20ml/hr. Reportedly yesterday had 2-3 episodes vomiting TF. TF was held, no vomiting since. + BM, some solid material. (Jessica Damon) Objective Vitals I&O Vital Signs Date Time Temp Pulse Resp B/P (MAP) Pulse Ox O2 Delivery O2 Flow Rate FiO2 12/25/17 09:35 99 T-piece 10.00 50 12/25/17 07:00 98.9 82 16 142/68 (92) 97 12/25/17 04:00 98.2 87 16 142/68 (92) 93 12/24/17 20:00 98.8 92 16 131/65 (87) 97 12/24/17 20:00 98 T-Piece 45 12/24/17 16:45 98.0 88 155/62 (93) 93 12/24/17 16:30 99 T-piece 6.00 35 12/24/17 16:19 91 T-piece 6.00 35 I/O 12/24/17 12/24/17 12/24/17 12/25/17 12/25/17 12/25/17 07:00 15:00 23:00 07:00 15:00 23:00 Intake Total 1875 ml 920 ml 100 ml Output Total 0 ml 0 ml Balance 1875 ml 0 ml 920 ml 100 ml IV Total 100 ml Tube Feeding 1025 ml 420 ml Other 750 ml 500 ml 100 ml Tube Feeding Residual Discard 0 ml 0 ml # Voids 4 2 3 # Bowel Movements 3 2 3 Laboratory Laboratory Tests Test 12/25/17 07:36 White Blood Count 18.6 Red Blood Count 2.78 Hemoglobin 9.4 Hematocrit 27.2 Mean Corpuscular Volume 97.7 Mean Corpuscular Hemoglobin 33.7 Mean Corpuscular Hemoglobin Concent 34.6 Red Cell Distribution Width 13.6 Platelet Count 360 Mean Platelet Volume 7.9 Neutrophils (%) (Auto) 81.1 Lymphocytes (%) (Auto) 10.5 Monocytes (%) (Auto) 5.6 Eosinophils (%) (Auto) 2.2 Basophils (%) (Auto) 0.6 Neutrophils # (Auto) 15.1 Lymphocytes # (Auto) 2.0 Monocytes # (Auto) 1.0 Eosinophils # (Auto) 0.4 Basophils # (Auto) 0.1 CBC Comment AUTO DIFF Differential Total Cells Counted 100 Neutrophils % (Manual) 70 Band Neutrophils % 12 Lymphocytes % 9 Monocytes % 4 Eosinophils % 5 Neutrophils # (Manual) 15.3 Differential Comment FINAL DIFF MANUAL Atypical Lymphocytes Platelet Estimate NORMAL Platelet Morphology Comment NORMAL Basophilic Stippling FAINT Blood Urea Nitrogen 19 Creatinine 0.65 Random Glucose 160 Total Protein 6.8 Albumin 2.4 Calcium Level 8.9 Phosphorus Level 2.7 Magnesium Level 2.1 Alkaline Phosphatase 249 Aspartate Amino Transf (AST/SGOT) 31 Alanine Aminotransferase (ALT/SGPT) 37 Total Bilirubin 0.3 Sodium Level 141 Potassium Level 3.6 Chloride Level 101 Carbon Dioxide Level 31.0 Anion Gap 9 Estimat Glomerular Filtration Rate 89 Date/Time Source Procedure Growth Status 07/25/17 10:35 Blood Peripheral Aerobic Blood Culture - Final NO GROWTH IN 5 DAYS Complete 07/25/17 10:35 Blood Peripheral Anaerobic Blood Culture - Final NO GROWTH IN 5 DAYS Complete 08/05/17 14:25 Fluid Pleural Fluid Gram Stain - Final Complete 08/05/17 14:25 Fluid Pleural Fluid Body Fluid Culture - Final NO GROWTH IN 72 HRS.--AEROBICALLY OR ... Complete 12/23/17 17:00 Stool Stool Cryptosporidium Exam Pending Resulted 12/23/17 17:00 Stool Stool Stool Pus (JEFFREY) - Final NO WBC'S SEEN Resulted 12/23/17 17:00 Stool Stool Giardia Antigen (JEFFREY) Pending Resulted 12/21/17 16:30 Sputum Endotracheal Gram Stain - Final Complete 12/21/17 16:30 Sputum Culture - Final Pseudomonas Aeruginosa Multi-Drug Resistant Complete 12/02/17 20:00 Urine Catheterized Urine Urine Culture - Final Pseudo Fluorescens/Putida Complete Imaging Last Impressions Chest X-Ray 12/24/17 0000 Signed Impressions: Service Date/Time: Sunday, December 24, 2017 21:25 - CONCLUSION: Worsening bibasilar consolidation and right pleural effusion. Obdulio Simms MD Upper Extremity Ultrasound 11/04/17 0000 Signed Impressions: Service Date/Time: Saturday, November 04, 2017 09:57 - CONCLUSION: No thrombus observed. Subcutaneous edema noted. Deangelo Wren Jr., MD Abdomen X-Ray 11/04/17 0000 Signed Impressions: Service Date/Time: Saturday, November 04, 2017 11:58 - CONCLUSION: Gaseous distention of bowel loops could be ileus but unchanged. Benja F. Tocci, MD CT Angiography 11/01/17 0000 Signed Impressions: Service Date/Time: Wednesday, November 01, 2017 16:47 - CONCLUSION: No evidence for pulmonary embolism. Please see above. Choco Mustafa MD Thoracentesis 08/05/17 1535 Signed Impressions: Service Date/Time: Saturday, August 05, 2017 16:08 - CONCLUSION: Uncomplicated CT-guided thoracentesis. Sage Adler MD Chest Ultrasound 08/02/17 0000 Signed Impressions: Service Date/Time: Tuesday, August 01, 2017 22:06 - CONCLUSION: 1. Moderate right pleural effusion, as above. Alejo De La Vega MD Hip and Pelvis X-Ray 07/09/17 0000 Signed Impressions: Service Date/Time: Sunday, July 09, 2017 14:04 - CONCLUSION: Anatomic alignment. Ricardo Middleton MD FACR Liver Ultrasound 06/19/17 0000 Signed Impressions: Service Date/Time: June 13:20 - CONCLUSION: 1. Mildly increased echotexture of the liver characteristic of hepatic steatosis. 2. Gallbladder sludge. Obdulio Sam MD Head CT 05/15/17 0000 Signed Impressions: Service Date/Time: May 19:59 - CONCLUSION: 1. 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 2. No bleed or new/acute infarct. Obdulio Simms MD Gall Bladder Ultrasound 05/08/17 0000 Signed Impressions: Service Date/Time: May 08:23 - CONCLUSION: Focally unremarkable appearance of the gallbladder Obdulio Chun MD Abdomen/Pelvis CT 05/07/17 0000 Signed Impressions: Service Date/Time: Sunday, May 07, 2017 13:23 - CONCLUSION: 1. Large left pneumothorax. 2. Bilateral lower lobe consolidation and bilateral moderate size pleural effusions. 3. Significant soft tissue thickening of the right lateral chest wall and left gluteus muscle. 4. Mild ascites. The findings were called to Dr. Carney. Deangelo Zamora MD Chest CT 04/30/17 0000 Signed Impressions: Service Date/Time: Sunday, April 30, 2017 09:20 - CONCLUSION: 1. Bilateral pulmonary infiltrates more pronounced within the lower lobes with tiny bilateral pleural effusions. Material seen filling the lower lobe bronchi bilaterally either related to purulent material or perhaps mucus plugging. Deangelo Wren Jr., MD Carotid Artery Ultrasound 04/24/17 0000 Signed Impressions: Service Date/Time: April 09:45 - CONCLUSION: 1. No hemodynamically significant carotid artery stenosis. Arnie Middleton MD Hip X-Ray 04/21/17 0000 Signed Impressions: Service Date/Time: Friday, April 21, 2017 11:36 - CONCLUSION: Fluoroscopic images during placement of intramedullary siomara left femur. Benja Ramsey MD Physical Exam HEENT: Normocephalic; atraumatic; no jaundice. trach to tpiece CHEST: Course breath sounds CARDIAC: RRR ABDOMEN: semifirm, no hepatosplenomegaly; bowel sounds are present in all four quadrants. PEG tube site without redness or swelling EXTREMITIES: no cyanosis BUE edema SKIN: Normal; no rash; no jaundice. 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 Brought to the ER for AMS/Fall and found to have displaced intertrochanteric fracture, s/p left hip reduction and intramedullary nail fixation on 04/21/17. Her hospitalization was complicated by a large left MCA infarct with diffuse edema throughout the left MCA distribution and she was not a candidate for intracranial intervention due to completed appearance of infarct. Pt has since been in the ICU and is requiring prolonged mechanical ventilation. S/P tracheostomy. S/P EGD with peg tube placement (05/16/17)---> 1. The upper, middle, and distal third of the esophagus were carefully inspected and no abnormalities were noted. The z-line was well seen at the GEJ. The endoscope was pushed into the fundus which was normal including a retroflexed view. The antrum, first and second part of the duodenum were unremarkable. 2. A hiatal hernia [facility] recommends Glucerna 1.5 @ 45 mls/hr. Site without redness or swelling or drainage. 12/23/17 GI reconsulted for acute worsening of loose stool. c diff 12/21 neg. she is on linezolid, zosyn, levaquin. ID following 12/24/17 stool neg for enteric path, WBCs. ova & parasite, cryptosporidia, and giardia pending. 12/25/17 2-3 episodes vomiting TF yesterday. none since, tolerating TF today at 20ml/hr. diarrhea 2/2 abx, TF PLAN: - scheduled cholestyramine - fiber if tolerated - await cryptosporidium, giardia - supportive care pt seen by myself and Dr Mims and this note is on his behalf (Jessica Damon) Physician Comments Patient seen and examined Agree with above Continue with current supportive care Monitor labs Diarrhea seems to be improving (Gerson Mims MD) Jessica Damon Dec 25, 2017 11:24 Gerson Mims MD Dec 25, 2017 21:28
[2017-12-25] MEDS: INSULIN DETEMIR 100 UNITS/ML VIAL SQ SCH ×2 (12:16)
[2017-12-25] MEDS: DEXTROSE 50% IN WATER 50 ML VIAL(D50) IV PUSH PRN (17:52)
--- NOTE | 2017-12-25 19:10 | HHI.PR ---
Subjective Remarks No events overnight. Patient is on TP's with 40% FIO2. . Tolerating tube feeds. Tolerates TF No fever Moderate amount of thick mucous Trach downsized to #6 Tolerates well. No diarrhoea Tolerating TF today at 30cc/hr Had episode of Hypoglycemia and required D50 Objective Vital Signs Vital Signs Date Time Temp Pulse Resp B/P (MAP) Pulse Ox O2 Delivery O2 Flow Rate FiO2 12/25/17 17:51 99 T-piece 10.00 60 12/25/17 15:00 97.8 81 16 143/73 (96) 97 12/25/17 11:00 97.5 84 18 149/73 (98) 95 12/25/17 09:35 99 T-piece 10.00 50 12/25/17 08:00 98 T-Piece 10.00 45 12/25/17 07:00 98.9 82 16 142/68 (92) 97 12/25/17 04:00 98.2 87 16 142/68 (92) 93 12/24/17 20:00 98.8 92 16 131/65 (87) 97 12/24/17 20:00 98 T-Piece 45 I/O 12/24/17 12/24/17 12/24/17 12/25/17 12/25/17 12/25/17 07:00 15:00 23:00 07:00 15:00 23:00 Intake Total 1875 ml 920 ml 100 ml Output Total 0 ml 0 ml 0 ml Balance 1875 ml 0 ml 920 ml 100 ml 0 ml IV Total 100 ml Tube Feeding 1025 ml 420 ml Other 750 ml 500 ml 100 ml Tube Feeding Residual Discard 0 ml 0 ml 0 ml Bladder Scan Volume Amount 10 ml # Voids 4 2 3 # Bowel Movements 3 2 3 Result Diagram: 12/25/17 0736 12/25/17 0736 Objective Remarks GENERAL: Elderly female,NAD SKIN: Warm and dry. HEAD: Normocephalic. EYES: No scleral icterus. No injection or drainage. NECK: Supple, trachea midline. No JVD or lymphadenopathy. + trach CARDIOVASCULAR: Regular rate and rhythm without murmurs, gallops, or rubs. RESPIRATORY: Breath sounds equal bilaterally. No accessory muscle use. GASTROINTESTINAL: Abdomen soft, non-tender, nondistended. MUSCULOSKELETAL: No cyanosis, or edema. BACK: Nontender without obvious deformity. No CVA tenderness. A/P Assessment and Plan Chronic resp failure, ,S/P Trach CVA Pneumonia Calcified Granuloma LLL Pseudomonas Tracheobronchitis, PLAN: Continue with TP's, keep sats >92% Bronchodilators, Pulm toilet, trach care CT chest 11/01: No PE,adenopathy in the right paratracheal, subcarinal and hilar regions with numerous prominent lymph nodes seen. Cont TF-30 cc/hr GI/DVT prophylaxis DW RN at [facility],Chris Hester MD Dec 25, 2017 19:10
[2017-12-25] MEDS ORDERED: FUROSEMIDE 40 MG/4 ML VIAL IV PUSH ONE (21:45)
[2017-12-26] VITALS (8 sets, daily range): BP systolic 130–168; BP diastolic 58–84; PULSE 62–96; RESP 15–22; TEMP 98.1–100; O2SAT 95–99
[2017-12-26] MEDS: INSULIN NovoLIN REGULAR SUPPLEMENTAL SCALE SQ SCH ×5 (00:30→23:43)
[2017-12-26] MEDS: FREE WATER PO SCH ×5 (00:37→23:27)
[2017-12-26] MEDS: HEPARIN SODIUM - SQ 10,000 UNITS/ML VIAL SQ SCH ×3 (05:08→21:29)
[2017-12-26] MEDS: PIPERACIL-TAZO 4.5 GM PREMIX 100 ML IV SCH ×4 (05:08→22:28)
[2017-12-26] MEDS: hydrALAZINE HCL 10 MG TAB PEG SCH ×3 (05:08→21:29)
[2017-12-26] MEDS ORDERED: FUROSEMIDE 40 MG/4 ML VIAL IV PUSH SCH (09:00)
[2017-12-26] MEDS: RESP: COLISTIN 150 MG VIAL NEB SCH ×3 (09:20→23:48)
[2017-12-26] MEDS: LACTOBACILLUS ACIDOPHILUS TAB PEG SCH ×2 (10:51→20:46)
[2017-12-26] MEDS: LINEZOLID 600 MG TAB PO SCH ×2 (10:51→20:45)
[2017-12-26] MEDS: ASPIRIN 325 MG TAB DOBHOFF SCH (10:51)
[2017-12-26] MEDS: CALCIUM/VITAMIN D 250 MG/125 U TAB PEG SCH ×3 (10:51→17:29)
[2017-12-26] MEDS: CHOLECALCIFEROL (VIT D3) 5000 UNIT CAP PEG SCH (10:51)
[2017-12-26] MEDS: LANSOPRAZOLE SOLUTAB 30 MG TAB NG SCH (10:54)
[2017-12-26] MEDS: CHOLESTYRAMINE LIGHT 4 GM PACKAGE PEG SCH ×2 (11:00→22:14)
[2017-12-26] MEDS: LISINOPRIL 5 MG TAB PEG SCH (11:00)
[2017-12-26] MEDS: CALCIUM POLYCARBOPHIL 625 MG TAB PO SCH ×2 (11:00→20:45)
[2017-12-26] MEDS: BACITRACIN TOP OINT 15 GM TUBE TOPICAL SCH ×2 (11:01→21:30)
--- NOTE | 2017-12-26 11:47 | HHI.GIFU ---
Subjective Remarks Pt OOB to chair. Per nurse diarrhea has lessened and has more form to it. No vomiting today and tolerating TF. (Jessica Damon) Objective Vitals I&O Vital Signs Date Time Temp Pulse Resp B/P (MAP) Pulse Ox O2 Delivery O2 Flow Rate FiO2 12/26/17 09:21 98 T-piece 10.00 50 12/26/17 04:00 99.0 69 15 137/59 (85) 99 12/26/17 00:00 98.1 62 16 130/58 (82) 99 12/25/17 20:04 99 T-piece 10.00 50 12/25/17 20:00 98.1 69 14 143/64 (90) 98 12/25/17 20:00 98 T-Piece 10.00 50 12/25/17 17:51 99 T-piece 10.00 60 12/25/17 15:00 97.8 81 16 143/73 (96) 97 I/O 12/25/17 12/25/17 12/25/17 12/26/17 12/26/17 12/26/17 07:00 15:00 23:00 07:00 15:00 23:00 Intake Total 100 ml 960 ml 978 ml Output Total 0 ml 300 ml 375 ml Balance 100 ml 0 ml 660 ml 603 ml IV Total 200 ml Tube Feeding 260 ml 478 ml Other 100 ml 500 ml 500 ml Output Urine Total 300 ml 375 ml Tube Feeding Residual Discard 0 ml Bladder Scan Volume Amount 10 ml # Voids 3 2 # Bowel Movements 3 2 1 Laboratory Date/Time Source Procedure Growth Status 07/25/17 10:35 Blood Peripheral Aerobic Blood Culture - Final NO GROWTH IN 5 DAYS Complete 07/25/17 10:35 Blood Peripheral Anaerobic Blood Culture - Final NO GROWTH IN 5 DAYS Complete 08/05/17 14:25 Fluid Pleural Fluid Gram Stain - Final Complete 08/05/17 14:25 Fluid Pleural Fluid Body Fluid Culture - Final NO GROWTH IN 72 HRS.--AEROBICALLY OR ... Complete 12/23/17 17:00 Stool Stool Cryptosporidium Exam - Final NEGATIVE - NO CRYPTOSPORIDIUM ANTIGEN... Complete 12/23/17 17:00 Stool Stool Stool Pus (JEFFREY) - Final NO WBC'S SEEN Complete 12/23/17 17:00 Stool Stool Giardia Antigen (JEFFREY) - Final NEGATIVE - NO GIARDIA ANTIGEN DETECTE... Complete 12/21/17 16:30 Sputum Endotracheal Gram Stain - Final Complete 12/21/17 16:30 Sputum Culture - Final Pseudomonas Aeruginosa Multi-Drug Resistant Complete 12/02/17 20:00 Urine Catheterized Urine Urine Culture - Final Pseudo Fluorescens/[place] Complete Physical Exam HEENT: Normocephalic; atraumatic; no jaundice. trach to tpiece CHEST: Course breath sounds CARDIAC: RRR ABDOMEN: semifirm, no hepatosplenomegaly; bowel sounds are present in all four quadrants. PEG tube site without redness or swelling EXTREMITIES: no cyanosis BUE edema SKIN: Normal; no rash; no jaundice. 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 Brought to the ER for AMS/Fall and found to have displaced intertrochanteric fracture, s/p left hip reduction and intramedullary nail fixation on 04/21/17. Her hospitalization was complicated by a large left MCA infarct with diffuse edema throughout the left MCA distribution and she was not a candidate for intracranial intervention due to completed appearance of infarct. Pt has since been in the ICU and is requiring prolonged mechanical ventilation. S/P tracheostomy. S/P EGD with peg tube placement (05/16/17)---> 1. The upper, middle, and distal third of the esophagus were carefully inspected and no abnormalities were noted. The z-line was well seen at the GEJ. The endoscope was pushed into the fundus which was normal including a retroflexed view. The antrum, first and second part of the duodenum were unremarkable. 2. A hiatal hernia [employer] recommends Glucerna 1.5 @ 45 mls/hr. Site without redness or swelling or drainage. 12/23/17 GI reconsulted for acute worsening of loose stool. c diff 12/21 neg. she is on linezolid, zosyn, levaquin. ID following 12/24/17 stool neg for enteric path, WBCs. ova & parasite, cryptosporidia, and giardia pending. 12/25/17 2-3 episodes vomiting TF yesterday. none since, tolerating TF today at 20ml/hr. diarrhea 2/2 abx, TF 12/26/17 no further n/v, tolerating TF, diarrhea improved. cryptosporidium & giardia neg. d/w nurse. PLAN: - scheduled cholestyramine - continue offering fiber as tolerated - supportive care - GI will sign off. please reconsult if needed. pt seen by myself and Dr Mims and this note is on his behalf (Jessica Damon) Physician Comments Patient seen and examined Agree with above Continue with current supportive care Monitor labs Not much to add from a GI perspective we will sign off (Gerson Mims MD) Jessica Damon Dec 26, 2017 11:47 Gerson Mims MD Dec 26, 2017 13:00
[2017-12-26] MEDS: INSULIN DETEMIR 100 UNITS/ML VIAL SQ SCH ×3 (12:00→23:43)
--- NOTE | 2017-12-26 17:02 | HHI.PR ---
Subjective Remarks Had tea colored/dark urine this morning and yesterday. 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 Blood glucose also went down in the 50s, Levemir was held, now blood sugars in 200s. Objective Vitals Vital Signs Date Time Temp Pulse Resp B/P (MAP) Pulse Ox O2 Delivery O2 Flow Rate FiO2 12/26/17 12:00 98.9 86 22 162/72 (102) 99 12/26/17 09:21 98 T-piece 10.00 50 12/26/17 08:00 97 T-Piece 10.00 50 12/26/17 08:00 100.0 96 22 168/84 (112) 99 12/26/17 04:00 99.0 69 15 137/59 (85) 99 12/26/17 00:00 98.1 62 16 130/58 (82) 99 12/25/17 20:04 99 T-piece 10.00 50 12/25/17 20:00 98.1 69 14 143/64 (90) 98 12/25/17 20:00 98 T-Piece 10.00 50 12/25/17 17:51 99 T-piece 10.00 60 I/O 12/25/17 12/25/17 12/25/17 12/26/17 12/26/17 12/26/17 07:00 15:00 23:00 07:00 15:00 23:00 Intake Total 100 ml 960 ml 978 ml Output Total 0 ml 300 ml 375 ml 0 ml Balance 100 ml 0 ml 660 ml 603 ml 0 ml IV Total 200 ml Tube Feeding 260 ml 478 ml Other 100 ml 500 ml 500 ml Output Urine Total 300 ml 375 ml Tube Feeding Residual Discard 0 ml 0 ml Bladder Scan Volume Amount 10 ml # Voids 3 2 # Bowel Movements 3 2 1 Result Diagram: 12/25/17 0736 12/25/17 0736 Objective Remarks Not in distress, chronically ill, trach dependent Ice equal reactive to light Regular rate and rhythm Bronchial breath sounds, occasional crackles, decreased breath sounds at bases. No wheezing Abdomen soft, nontender, Mild hand and lower extremity edema Awake, not alert, does not appear to be oriented. Positive response to visual threat, does not follow any commands Procedures PEG tube trach 05/15/17 and PEG 05/16/17 A/P Problem List: (1) Acute ischemic left middle cerebral artery (MCA) stroke ICD Code: I63.512 - Cerebral infarction due to unspecified occlusion or stenosis of left middle cerebral artery Status: Acute (2) Acute respiratory failure ICD Code: J96.00 - Acute respiratory failure, unspecified whether with hypoxia or hypercapnia (3) Right hemiplegia ICD Code: G81.91 - Hemiplegia, unspecified affecting right dominant side Status: Acute (4) Sacral decubitus ulcer ICD Code: L89.159 - Pressure ulcer of sacral region, unspecified stage Status: Chronic (5) HCAP (healthcare-associated pneumonia) ICD Code: J18.9 - Pneumonia, unspecified organism Status: Acute (6) 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 ICD Code: A49.8 - Other bacterial infections of unspecified site; Z16.24 - Resistance to multiple antibiotics Status: Acute (7) CVA (cerebral vascular accident) ICD Code: I63.9 - Cerebral infarction, unspecified Status: Chronic (8) Chronic respiratory failure ICD Code: J96.10 - Chronic respiratory failure, unspecified whether with hypoxia or hypercapnia Status: Chronic Assessment and Plan 77-year-old female [id number] female with: New sepsis with pseudomonas pneumonia- on Zosyn total 7 days ID notes 12/24/17 reviewed Right pleural effusion with requirement of bipap on 12/20/17 thought to be secondary to aspiration pneumonia as well will need to watch for possible empyema- requiring thoracocentesis however, question whether this is truly just from pneumonia- as xray is reading improvement/ worsening within days between 12/20 to now possible this is secondary to pulmonary edema/ fluid overload pt with EF 25% and diastolic heart failure Continue Lasix orally twice a day, repeat chest x-ray in the next few days, if no improvement, will do ultrasound-guided thoracentesis for parapneumonic effusions. Check BMP tomorrow. Hypoglycemia-tube feeds were held temporarily, now back, decrease Levemir to 8 units twice a day. Hematuria?-Dark-colored urine, send urine for urinalysis. DKA and hip fracture on 04/20/17. s/p ORIF on 04/21/17 LEFT MCA infarct- stroke alert on 04/24 5.5 mm of [id number] subfalcine herniation, diagnosed 04/24. Not a candidate for thrombolysis at that time. Increasing edema seen on repeat CT 04/28 with a reduction in midline shift on another repeat on 04/30 trach 05/15/17 and PEG 05/16/17 Hypertension CHF. Echo on October 06, 2017. EF 25-30%. Chronic tracheostomy/respiratory failure on October 22, 2017 On trach. Still requiring supplementary oxygen. Nebs when necessary. Pulmonary following. Elevated D-dimer Ordered 10/31 for increasing FiO2 demand CT pulmonary angiogram negative for acute pulmonary embolism. Likely from chronic illness. Right upper extremity significantly bigger than the left. Ultrasound studies did not reveal any DVT. Elevate right upper extremity. History of Large left pneumothorax Resolved Chest tube placed 05/07, discontinued 05/12/17 Hepatitis C Negative genotype/viral load Diabetes mellitus SSI Novolin R High-dose scale Levemir insulin 8u Q12. FEN PEG tube feeding with Glucerna 1.5 goal 45 cc/hr, per nutrition rec 10/20/17. aggressive PT Discharge Planning Per clinical progress and family discussions Discharge Planning Aggressive therapy, full code per palliative. Needs placement Problem Qualifiers (1) Acute respiratory failure: Qualified Codes: J96.00 - Acute respiratory failure, unspecified whether with hypoxia or hypercapnia (2) Sacral decubitus ulcer: Qualified Codes: L89.152 - Pressure ulcer of sacral region, stage 2 (3) Chronic respiratory failure: Qualified Codes: J96.11 - Chronic respiratory failure with hypoxia Roderick Turcios MD Dec 26, 2017 17:02
[2017-12-26] MEDS: FUROSEMIDE 40 MG TAB PO SCH (18:00)
--- NOTE | 2017-12-26 18:36 | HHI.PR ---
Subjective Remarks No events overnight. Patient is on TP's with 40% FIO2. . Tolerating tube feeds. Tolerates TF No fever Moderate amount of thick mucous Trach downsized to #6 Tolerates well. No diarrhoea more awake On fi02 40% Objective Vital Signs Vital Signs Date Time Temp Pulse Resp B/P (MAP) Pulse Ox O2 Delivery O2 Flow Rate FiO2 12/26/17 16:00 99.9 94 20 160/70 (100) 95 12/26/17 12:00 98.9 86 22 162/72 (102) 99 12/26/17 09:21 98 T-piece 10.00 50 12/26/17 08:00 97 T-Piece 10.00 50 12/26/17 08:00 100.0 96 22 168/84 (112) 99 12/26/17 04:00 99.0 69 15 137/59 (85) 99 12/26/17 00:00 98.1 62 16 130/58 (82) 99 12/25/17 20:04 99 T-piece 10.00 50 12/25/17 20:00 98.1 69 14 143/64 (90) 98 12/25/17 20:00 98 T-Piece 10.00 50 I/O 12/25/17 12/25/17 12/25/17 12/26/17 12/26/17 12/26/17 07:00 15:00 23:00 07:00 15:00 23:00 Intake Total 100 ml 960 ml 978 ml Output Total 0 ml 300 ml 375 ml 0 ml Balance 100 ml 0 ml 660 ml 603 ml 0 ml IV Total 200 ml Tube Feeding 260 ml 478 ml Other 100 ml 500 ml 500 ml Output Urine Total 300 ml 375 ml Tube Feeding Residual Discard 0 ml 0 ml Bladder Scan Volume Amount 10 ml # Voids 3 2 # Bowel Movements 3 2 1 Result Diagram: 12/25/1736 12/25/17735 Objective Remarks GENERAL: Elderly female,NAD SKIN: Warm and dry. HEAD: Normocephalic. EYES: No scleral icterus. No injection or drainage. NECK: Supple, trachea midline. No JVD or lymphadenopathy. + trach CARDIOVASCULAR: Regular rate and rhythm without murmurs, gallops, or rubs. RESPIRATORY: Breath sounds equal bilaterally. No accessory muscle use. GASTROINTESTINAL: Abdomen soft, non-tender, nondistended. MUSCULOSKELETAL: No cyanosis, or edema. BACK: Nontender without obvious deformity. No CVA tenderness. A/P Assessment and Plan Chronic resp failure, ,S/P Trach CVA Pneumonia Calcified Granuloma LLL Pseudomonas Tracheobronchitis, PLAN: Continue with TP's, keep sats >92% Bronchodilators, Pulm toilet, trach care Cont TF GI/DVT prophylaxis LAI RN at Chris Rizo MD Dec 26, 2017 18:36
[2017-12-26] MEDS: ONDANSETRON HCL 4 MG/2 ML VIAL IV PUSH PRN (20:52)
[2017-12-27] VITALS (9 sets, daily range): BP systolic 120–144; BP diastolic 53–83; PULSE 73–85; RESP 20–22; TEMP 97.2–100.4; O2SAT 93–99
[2017-12-27] MEDS: PIPERACIL-TAZO 4.5 GM PREMIX 100 ML IV SCH ×4 (05:18→23:04)
[2017-12-27] MEDS: hydrALAZINE HCL 10 MG TAB PEG SCH ×3 (05:19→21:30)
[2017-12-27] MEDS: HEPARIN SODIUM - SQ 10,000 UNITS/ML VIAL SQ SCH ×3 (05:19→21:30)
[2017-12-27] MEDS: oxyCODONE HCL ORAL CONC 5 MG/0.25 ML SYRINGE PO PRN ×2 (05:19→12:51)
[2017-12-27] MEDS: FREE WATER PO SCH ×4 (05:20→23:05)
[2017-12-27] MEDS: INSULIN NovoLIN REGULAR SUPPLEMENTAL SCALE SQ SCH ×4 (06:51→23:30)
[2017-12-27] MEDS: RESP: COLISTIN 150 MG VIAL NEB SCH ×3 (07:20→23:59)
[2017-12-27] MEDS ORDERED: BACITRACIN TOP OINT 15 GM TUBE TOPICAL PRN (08:15)
[2017-12-27 09:08] LABS: CALCIUM 8.7 MG/DL (8.5-10.1); CREATININE 0.65 MG/DL (0.50-1.00)
[2017-12-27] MEDS: CHOLECALCIFEROL (VIT D3) 5000 UNIT CAP PEG SCH (10:17)
[2017-12-27] MEDS: FUROSEMIDE 40 MG TAB PO SCH ×2 (10:17→19:30)
[2017-12-27] MEDS: CALCIUM/VITAMIN D 250 MG/125 U TAB PEG SCH ×3 (10:17→19:29)
[2017-12-27] MEDS: LACTOBACILLUS ACIDOPHILUS TAB PEG SCH ×2 (10:17→20:24)
[2017-12-27] MEDS: ONDANSETRON HCL 4 MG/2 ML VIAL IV PUSH PRN (10:17)
[2017-12-27] MEDS: CHOLESTYRAMINE LIGHT 4 GM PACKAGE PEG SCH ×2 (10:17→20:24)
[2017-12-27] MEDS: LINEZOLID 600 MG TAB PO SCH ×2 (10:17→20:24)
[2017-12-27] MEDS: LANSOPRAZOLE SOLUTAB 30 MG TAB NG SCH (10:18)
[2017-12-27] MEDS: ASPIRIN 325 MG TAB DOBHOFF SCH (10:18)
[2017-12-27] MEDS: CALCIUM POLYCARBOPHIL 625 MG TAB PO SCH ×2 (10:18→20:24)
[2017-12-27] MEDS: LISINOPRIL 5 MG TAB PEG SCH (10:19)
--- NOTE | 2017-12-27 10:23 | HHI.PR ---
Subjective Remarks Patient is diuresing well Had dark urine yesterday Now not so dark Discussed with RN No new complaints from the patient Had probable aspiration earlier in the week Objective Vitals Vital Signs Date Time Temp Pulse Resp B/P (MAP) Pulse Ox O2 Delivery O2 Flow Rate FiO2 12/27/17 08:00 99.9 85 22 126/67 (86) 98 12/27/17 08:00 97 T-Piece 10.00 50 12/27/17 07:29 98 T-piece 10.00 40 12/27/17 06:15 20 12/27/17 03:40 97.6 74 20 120/53 (75) 96 12/27/17 00:11 98.0 75 20 134/68 (90) 96 12/26/17 20:04 95 T-piece 40 12/26/17 20:00 Trach Collar 5.00 12/26/17 19:38 98.6 71 20 137/69 (91) 98 12/26/17 16:00 99.9 94 20 160/70 (100) 95 12/26/17 12:00 98.9 86 22 162/72 (102) 99 I/O 12/26/17 12/26/17 12/26/17 12/27/17 12/27/17 12/27/17 07:00 15:00 23:00 07:00 15:00 23:00 Intake Total 978 ml 1240 ml 1340 ml Output Total 375 ml 0 ml 450.0 ml 650 ml 0 ml Balance 603 ml 0 ml 790.0 ml 690 ml 0 ml Tube Feeding 478 ml 540 ml 540 ml Other 500 ml 700 ml 800 ml Output Urine Total 375 ml 450 ml 650 ml Tube Feeding Residual Discard 0 ml 0 ml 0 ml # Bowel Movements 1 1 4 Result Diagram: 12/25/17 0736 12/27/17 0833 Other Results Laboratory Tests Test 12/25/17 07:36 12/27/17 08:33 White Blood Count 18.6 TH/MM3 Red Blood Count 2.78 MIL/MM3 Hemoglobin 9.4 GM/DL Hematocrit 27.2 % Mean Corpuscular Volume 97.7 FL Mean Corpuscular Hemoglobin 33.7 PG Mean Corpuscular Hemoglobin Concent 34.6 % Red Cell Distribution Width 13.6 % Platelet Count 360 TH/MM3 Mean Platelet Volume 7.9 FL Neutrophils (%) (Auto) 81.1 % Lymphocytes (%) (Auto) 10.5 % Monocytes (%) (Auto) 5.6 % Eosinophils (%) (Auto) 2.2 % Basophils (%) (Auto) 0.6 % Neutrophils # (Auto) 15.1 TH/MM3 Lymphocytes # (Auto) 2.0 TH/MM3 Monocytes # (Auto) 1.0 TH/MM3 Eosinophils # (Auto) 0.4 TH/MM3 Basophils # (Auto) 0.1 TH/MM3 CBC Comment AUTO DIFF Differential Total Cells Counted 100 Neutrophils % (Manual) 70 % Band Neutrophils % 12 % Lymphocytes % 9 % Monocytes % 4 % Eosinophils % 5 % Neutrophils # (Manual) 15.3 TH/MM3 Differential Comment FINAL DIFF MANUAL Atypical Lymphocytes % Platelet Estimate NORMAL Platelet Morphology Comment NORMAL Basophilic Stippling FAINT Blood Urea Nitrogen 19 MG/DL 20 MG/DL Creatinine 0.65 MG/DL 0.65 MG/DL Random Glucose 160 MG/DL 153 MG/DL Total Protein 6.8 GM/DL Albumin 2.4 GM/DL Calcium Level 8.9 MG/DL 8.7 MG/DL Phosphorus Level 2.7 MG/DL Magnesium Level 2.1 MG/DL Alkaline Phosphatase 249 U/L Aspartate Amino Transf (AST/SGOT) 31 U/L Alanine Aminotransferase (ALT/SGPT) 37 U/L Total Bilirubin 0.3 MG/DL Sodium Level 141 MEQ/L 136 MEQ/L Potassium Level 3.6 MEQ/L 3.8 MEQ/L Chloride Level 101 MEQ/L 97 MEQ/L Carbon Dioxide Level 31.0 MEQ/L 33.0 MEQ/L Anion Gap 9 MEQ/L 6 MEQ/L Estimat Glomerular Filtration Rate 89 ML/MIN 89 ML/MIN B-Type Natriuretic Peptide 332 PG/ML Imaging Last Impressions Chest X-Ray 12/24/17 0000 Signed Impressions: Service Date/Time: Sunday, December 24, 2017 21:25 - CONCLUSION: Worsening bibasilar consolidation and right pleural effusion. Obdulio Simms MD Upper Extremity Ultrasound 11/04/17 0000 Signed Impressions: Service Date/Time: Saturday, November 04, 2017 09:57 - CONCLUSION: No thrombus observed. Subcutaneous edema noted. Deangelo Wren Jr., MD Abdomen X-Ray 11/04/17 0000 Signed Impressions: Service Date/Time: Saturday, November 04, 2017 11:58 - CONCLUSION: Gaseous distention of bowel loops could be ileus but unchanged. Benja Ramsey MD CT Angiography 11/01/17 0000 Signed Impressions: Service Date/Time: Wednesday, November 01, 2017 16:47 - CONCLUSION: No evidence for pulmonary embolism. Please see above. Choco Mustafa MD Thoracentesis 08/05/17 1535 Signed Impressions: Service Date/Time: Saturday, August 05, 2017 16:08 - CONCLUSION: Uncomplicated CT-guided thoracentesis. Sage Adler MD Chest Ultrasound 08/02/17 0000 Signed Impressions: Service Date/Time: Tuesday, August 01, 2017 22:06 - CONCLUSION: 1. Moderate right pleural effusion, as above. Alejo De La Vega MD Hip and Pelvis X-Ray 07/09/17 0000 Signed Impressions: Service Date/Time: Sunday, July 09, 2017 14:04 - CONCLUSION: Anatomic alignment. Ricardo Middleton MD FACR Liver Ultrasound 06/19/17 0000 Signed Impressions: Service Date/Time: June 13:20 - CONCLUSION: 1. Mildly increased echotexture of the liver characteristic of hepatic steatosis. 2. Gallbladder sludge. Obdulio Sam MD Head CT 05/15/17 0000 Signed Impressions: Service Date/Time: May 19:59 - CONCLUSION: 1. 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 2. No bleed or new/acute infarct. Obdulio Simms MD Gall Bladder Ultrasound 05/08/17 0000 Signed Impressions: Service Date/Time: May 08:23 - CONCLUSION: Focally unremarkable appearance of the gallbladder Obdulio Chun MD Abdomen/Pelvis CT 05/07/17 0000 Signed Impressions: Service Date/Time: Sunday, May 07, 2017 13:23 - CONCLUSION: 1. Large left pneumothorax. 2. Bilateral lower lobe consolidation and bilateral moderate size pleural effusions. 3. Significant soft tissue thickening of the right lateral chest wall and left gluteus muscle. 4. Mild ascites. The findings were called to Dr. Carney. Deangelo Zamora MD Chest CT 04/30/17 0000 Signed Impressions: Service Date/Time: Sunday, April 30, 2017 09:20 - CONCLUSION: 1. Bilateral pulmonary infiltrates more pronounced within the lower lobes with tiny bilateral pleural effusions. Material seen filling the lower lobe bronchi bilaterally either related to purulent material or perhaps mucus plugging. Deangelo Wren Jr., MD Carotid Artery Ultrasound 04/24/17 0000 Signed Impressions: Service Date/Time: April 09:45 - CONCLUSION: 1. No hemodynamically significant carotid artery stenosis. Arnie Middleton MD Hip X-Ray 04/21/17 0000 Signed Impressions: Service Date/Time: Friday, April 21, 2017 11:36 - CONCLUSION: Fluoroscopic images during placement of intramedullary siomara left femur. Benja Ramsey MD Objective Remarks GENERAL: Awake follows no commands left side is flaccid can move right side review of systems is unobtainable SKIN: Warm and dry. HEAD: Atraumatic. Normocephalic. EYES: Pupils equal and round. No scleral icterus. No injection or drainage. ENT: No nasal bleeding or discharge. Mucous membranes pink and moist. NECK: Trachea midline. No JVD. Supple tracheostomy in place CARDIOVASCULAR: Regular rate and rhythm. S1-S2 no S3 or S4 RESPIRATORY: No accessory muscle use. Clear to auscultation. Breath sounds equal bilaterally. GASTROINTESTINAL: Abdomen soft, non-tender, nondistended. Hepatic and splenic margins not palpable. PEG tube in place MUSCULOSKELETAL: Extremities without clubbing, cyanosis, or edema. No obvious deformities. NEUROLOGICAL: Awake and alert. No obvious cranial nerve deficits. Motor grossly within normal limits. Moves left side does not follow commands. No speech. PSYCHIATRIC: INAppropriate mood and affect; insight and judgment ABnormal. Procedures PEG tube trach 05/15/17 and PEG 05/16/17 Medications and IVs Current Medications Potassium Chloride 100 ml @ As Directed STK-MED ONCE .ROUTE Last administered on 04/20/17t 13:58; Start 04/20/17 at 13:50; Stop 04/20/17 at 13:51; Status DC Sodium Chloride 1,000 ml @ 250 mls/hr Q4H IV ; Start 04/20/17 at 14:30; Stop at 21:57; Status DC Dextrose/Sodium Chloride 1,000 ml @ 200 mls/hr Q5H IV Last administered on t 14:30; Start 04/20/17 at 14:30; Stop 04/20/17 at 21:57; Status DC Miscellaneous Medication ([facility] Information) Mix all IV Medications in Nor... UNSCH .XX ; Start 04/20/17 at 14:30; Stop 04/20/17 at 21:57; Status DC Potassium Chloride 100 ml @ 100 mls/hr Q1H PRN IV SEE PROTOCOL; Start at 14:30; Stop 04/20/17 at 21:57; Status DC Potassium Chloride 100 ml @ 50 mls/hr Q2H PRN IV SEE PROTOCOL; Start 04/20/17 at 14:30; Stop 04/20/17 at 21:57; Status DC Potassium Chloride 100 ml @ 100 mls/hr Q1H PRN IV SEE PROTOCOL; Start at 14:30; Stop 04/20/17 at 21:57; Status DC Potassium Chloride 100 ml @ 100 mls/hr Q1H PRN IV SEE PROTOCOL TABLE; Start at 14:30; Stop 04/20/17 at 21:57; Status DC Potassium Chloride 100 ml @ 50 mls/hr Q2H PRN IV SEE PROTOCOL; Start 04/20/17 at 14:30; Stop 04/20/17 at 21:57; Status DC Potassium Chloride 100 ml @ 50 mls/hr Q2H PRN IV SEE PROTOCOL TABLE; Start at 14:30; Stop 04/20/17 at 21:57; Status DC Potassium Chloride 100 ml @ 50 mls/hr Q2H PRN IV SEE PROTOCOL TABLE; Start at 14:30; Stop 04/20/17 at 21:57; Status DC Potassium Chloride 100 ml @ 50 mls/hr Q2H PRN IV SEE PROTOCOL TABLE; Start at 14:30; Stop 04/20/17 at 21:57; Status DC Insulin Human Regular (NovoLIN R INJ) 0.1 units/ Kg actual body weight BOLUS ONCE IV PUSH Last administered on 04/20/17t 15:51; Start 04/20/17 at 14:30; Stop 04/20/17 at 14:31; Status DC Insulin Human Regular 100 units/ Sodium Chloride 100 ml @ 0 mls/hr TITRATE IV ; Start 04/20/17 at 14:30; Stop 04/20/17 at 21:57; Status DC Dextrose (D50w (Vial) Inj) 50 ml Q10M PRN IV PUSH HYPOGLYCEMIA DKA -SEE COMMENTS; Start 04/20/17 at 14:30; Stop 04/20/17 at 21:57; Status DC Sodium Bicarbonate (Sodium Bicarbonate 8.4% Inj) 100 meq STAT PRN IV SEE LABEL COMMENTS; Start 04/20/17 at 14:30; Stop 04/20/17 at 21:57; Status DC Sodium Bicarbonate (Sodium Bicarbonate 8.4% Inj) 50 meq STAT PRN IV SEE LABEL COMMENTS; Start 04/20/17 at 14:30; Stop 04/20/17 at 21:57; Status DC Sodium Phosphate 15 mmol/Sodium Chloride 105 ml @ 25 mls/hr UNSCH PRN IV SEE PROTOCOL TABLE; Start 04/20/17 at 14:30; Stop 04/20/17 at 21:57; Status DC Acetaminophen (Tylenol) 650 mg Q6H PRN PO PAIN SCALE 1 TO 2 Last administered on 05/03/17 00:27; Start 04/20/17 at 14:30; Stop 05/07/17 at 12:46; Status DC Ondansetron HCl (Zofran Inj) 4 mg Q6H PRN IV PUSH NAUSEA AND VOMITING Last administered on 04/30/17 02:28; Start 04/20/17 at 15:00; Stop 08/04/17 at 16:22 ; Status DC Heparin Sodium (Porcine) (Heparin Inj) 5,000 units Q12HR SQ Last administered on 04/20/17 21:00; Start 04/20/17 at 21:00; Stop 04/21/17 at 11:44; Status DC Morphine Sulfate (Morphine Inj) 1 mg Q3H PRN IV Pain 3-5; if unable to take PO Last administered on 04/28/17 18:15; Start 04/20/17 at 17:15; Stop 05/19/17 at 07:55; Status DC Morphine Sulfate (Morphine Inj) 2 mg Q3H PRN IV Pain 6-10;if unable to take PO Last administered on 04/30/17 02:29; Start 04/20/17 at 17:15; Stop 05/19/17 at 07:55; Status DC Naloxone HCl (Narcan Inj) 0.4 mg UNSCH PRN IV SEE LABEL COMMENTS; Start at 17:15 Senna/Docusate Sodium (Nalini-Colace) 1 tab BID PO Last administered on 05/07/17 10:30; Start 04/20/17 at 21:00; Stop 05/07/17 at 12:50; Status DC Magnesium Hydroxide (Milk Of Magnesia Liq) 30 ml Q12H PRN PO MILD - MODERATE CONSTIPATION; Start 04/20/17 at 20:30; Stop 07/26/17 at 16:12; Status DC Sennosides (Senokot) 17.2 mg Q12H PRN PO MODERATE - SEVERE CONSTIPATION Last administered on 04/23/17 22:55; Start 04/20/17 at 20:30; Stop 05/19/17 at 08:05 ; Status DC Bisacodyl (Dulcolax Supp) 10 mg DAILY PRN RECTAL SEVERE CONSITIPATION; Start at 20:30; Stop 07/26/17 at 16:12; Status DC Lactulose (Lactulose Liq) 30 ml DAILY PRN PO SEVERE CONSITIPATION; Start at 20:30; Stop 05/05/17 at 09:24; Status DC Dextrose (D50w (Vial) Inj) 50 ml UNSCH PRN IV HYPOGLYCEMIA-SEE COMMENTS; Start 04/20/17 at 21:45; Stop 04/24/17 at 09:34; Status DC Glucagon (Glucagon Inj) 1 mg UNSCH PRN OTHER HYPOGLYCEMIA-SEE COMMENTS; Start 04/20/17 at 21:45; Stop 04/24/17 at 09:34; Status DC Insulin Aspart (NovoLOG SUPPLEMENTAL SCALE) 1 ACHS SLIDING SCALE SQ Last administered on 04/24/17 06:43; Start 04/21/17 at 07:00; Stop 04/24/17 at 09:35 ; Status DC Calcium Carbonate (Oscal) 500 mg ONCE ONCE PO ; Start 04/21/17 at 07:00; Stop 04/21/17 at 07:11; Status DC Sodium Phosphate 15 mmol/Sodium Chloride 155 ml @ 38.75 mls/ hr ONCE ONCE IV Last administered on 04/21/17 09:32; Start 04/21/17 at 07:00; Stop 04/21/17 at 10:59; Status DC Sodium Chloride 1,000 ml @ 75 mls/hr [id number] IV ; Start 04/21/17 at 09:03; Stop 04/21/17 at 09:03; Status DC Sodium Chloride 1,000 ml @ 100 mls/hr Q10H IV Last administered on 04/23/17 02:15; Start 04/21/17 at 09:03; Stop 04/24/17 at 09:12; Status DC Cefazolin Sodium (Ancef Inj) 1,000 mg STK-MED ONCE .ROUTE Last administered on 04/21/17 10:38; Start 04/21/17 at 10:30; Stop 04/21/17 at 10:31; Status DC Gentamicin Sulfate (Gentamicin Inj) 160 mg STK-MED ONCE .ROUTE Last administered on 04/21/17 11:36; Start 04/21/17 at 10:30; Stop 04/21/17 at 10:31 ; Status DC Vancomycin HCl (Vancomycin Inj) 1,000 mg STK-MED ONCE .ROUTE Last administered on 04/21/17 11:04; Start 04/21/17 at 10:40; Stop 04/21/17 at 10:41; Status DC Bupivacaine HCl/ Epinephrine Bitart (Sensorcaine-Epinephrine 0.25% Inj) 50 ml STK-MED ONCE .ROUTE Last administered on 04/21/17 11:39; Start 04/21/17 at 11: 39; Stop 04/21/17 at 11:40; Status DC IV Flush (NS Flush) 2 ml UNSCH PRN IVF FLUSH AFTER USING IV ACCESS; Start 04/21 at 11:45; Stop 04/24/17 at 09:34; Status DC IV Flush (NS Flush) 2 ml BID IVF Last administered on 04/23/17 07:51; Start at 21:00; Stop 04/24/17 at 09:34; Status DC Enoxaparin Sodium (Lovenox Inj) 30 mg Q24H SQ Last administered on 04/23/17 11 :01; Start 04/22/17 at 11:00; Stop 04/24/17 at 18:07; Status DC Cefazolin Sodium 1000 mg/Sodium Chloride 100 ml @ 200 mls/hr Q8H IV Last administered on 04/22/17 09:07; Start 04/21/17 at 18:00; Stop 04/22/17 at 10:29 ; Status DC Calcium/Vitamin D (Oscal-D 250-125) 250 mg TID PO Last administered on 09:56; Start 04/21/17 at 13:00; Stop 10/03/17 at 11:55; Status DC Diphenhydramine HCl (Benadryl) 25 mg Q6H PRN PO ITCHING; Start 04/21/17 at 11: 45; Stop 04/24/17 at 08:24; Status DC Acetaminophen/ Hydrocodone Bitart (Gazelle 7.5-325 Mg) 1 tab Q3H PRN PO pain 3< 10 Last administered on 05/03/17 20:17; Start 04/21/17 at 11:45; Stop 05/07/17 at 12:46; Status DC Cholecalciferol (Vitamin D3) 5,000 units DAILY PO Last administered on 09:08; Start 04/22/17 at 09:00; Stop 10/03/17 at 11:55; Status DC Ergocalciferol (Drisdol) 50,000 units ONCE ONCE PO ; Start 04/21/17 at 13:00; Stop 04/21/17 at 13:01; Status DC Midazolam HCl (Versed Inj) 2 mg STK-MED ONCE .ROUTE ; Start 04/21/17 at 12:15; Stop 04/21/17 at 12:16; Status DC Fentanyl Citrate (fentaNYL INJ) 250 mcg STK-MED ONCE .ROUTE ; Start 04/21/17 at 12:16; Stop 04/21/17 at 12:17; Status DC Morphine Sulfate (*morphine INJ PERIprocedure ONLY) 8 mg STK-MED ONCE .ROUTE Last administered on 04/21/17 12:37; Start 04/21/17 at 12:36; Stop 04/21/17 at 12:37; Status DC Miscellaneous Information ALL NURSING DEPARTME... UNSCH PRN .XX SEE LABEL COMMENTS; Start 04/21/17 at 13:00; Stop 04/22/17 at 12:59; Status DC Calcium Carbonate (Oscal) 500 mg ONCE ONCE PO ; Start 04/24/17 at 08:00; Stop 04/24/17 at 08:01; Status DC Sodium Chloride 1,000 ml @ 70 mls/hr [id number] IV ; Start 04/24/17 at 09:15; Stop 04/24/17 at 09:37; Status DC IV Flush (NS Flush) 2 ml BID IV FLUSH Last administered on 11/16/17at 09:00; Start 04/24/17 at 21:00; Stop 11/16/17 at 10:52; Status DC IV Flush (NS Flush) 2 ml UNSCH PRN IV FLUSH FLUSH AFTER USING IV ACCESS Last administered on 09/17/17at 08:48; Start 04/24/17 at 09:30; Stop 11/21/17 at 20:44 ; Status DC Sodium Chloride 1,000 ml @ 70 mls/hr [id number] IV Last administered on 03:38; Start 04/24/17 at 09:25; Stop 04/30/17 at 07:51; Status DC Aspirin (Aspirin Supp) 300 mg DAILY RECTAL Last administered on 04/26/17 08:38 ; Start 04/24/17 at 09:30; Stop 04/26/17 at 15:21; Status DC Insulin Aspart (NovoLOG SUPPLEMENTAL SCALE) 1 ACHS SQ Last administered on 04/24 17:29; Start 04/24/17 at 11:00; Stop 04/24/17 at 18:07; Status DC Dextrose (D50w (Vial) Inj) 50 ml UNSCH PRN IV PUSH HYPOGLYCEMIA-SEE COMMENTS; Start 04/24/17 at 09:30; Stop 04/24/17 at 18:07; Status DC Glucagon (Glucagon Inj) 1 mg UNSCH PRN OTHER HYPOGLYCEMIA-SEE COMMENTS; Start 04/24/17 at 09:30; Stop 04/24/17 at 18:07; Status DC Insulin Aspart (NovoLOG SUPPLEMENTAL SCALE) 1 Q4HR SQ ; Start 04/24/17 at 18:15 ; Stop 04/24/17 at 20:43; Status DC Dextrose (D50w (Vial) Inj) 25 ml UNSCH PRN IV HYPOGLYCEMIA-SEE COMMENTS; Start 04/24/17 at 18:15; Stop 04/26/17 at 20:28; Status DC Glucagon (Glucagon Inj) 1 mg UNSCH PRN IM/SQ HYPOGLYCEMIA-SEE COMMENTS; Start 04/24/17 at 18:15; Stop 05/21/17 at 13:34; Status DC Insulin Aspart (NovoLOG SUPPLEMENTAL SCALE) 1 Q4H SQ Last administered on 03:48; Start 04/24/17 at 22:00; Stop 04/26/17 at 09:43; Status DC Insulin Detemir (Levemir Inj) 10 units HS SQ Last administered on 04/25/17 23: 46; Start 04/25/17 at 21:00; Stop 04/26/17 at 09:43; Status DC Insulin Detemir (Levemir Inj) 20 units BID SQ Last administered on 04/26/17 11 :05; Start 04/26/17 at 10:00; Stop 04/27/17 at 08:34; Status DC Mannitol (Mannitol Inj) 12.5 gm Q6HR IV Last administered on 04/26/17 11:06; Start 04/26/17 at 12:00; Stop 04/28/17 at 18:33; Status DC Dextrose (D50w (Vial) Inj) 50 ml UNSCH PRN IV HYPOGLYCEMIA-SEE COMMENTS; Start 04/26/17 at 09:45; Status UNV Glucagon (Glucagon Inj) 1 mg UNSCH PRN OTHER HYPOGLYCEMIA-SEE COMMENTS; Start 04/26/17 at 09:45; Status UNV Insulin Aspart (NovoLOG SUPPLEMENTAL SCALE) 1 ACHS SLIDING SCALE SQ Last administered on 04/26/17 11:48; Start 04/26/17 at 11:00; Stop 04/26/17 at 15:24 ; Status DC Insulin Aspart (NovoLOG SUPPLEMENTAL SCALE) 1 Q4HR SQ Last administered on 04/28 09:38; Start 04/26/17 at 16:00; Stop 04/28/17 at 15:40; Status DC Aspirin (Aspirin) 325 mg DAILY DOBHOFF Last administered on 12/26/17at 10:51; Start 04/27/17 at 09:00 Dextrose (D50w (Syr) Inj) 25 ml UNSCH PRN IV HYPOGLYCEMIA- SEE COMMENTS Last administered on 05/18/17 00:22; Start 04/26/17 at 20:30; Stop 05/19/17 at 08:01 ; Status DC Metoprolol Tartrate (Lopressor Inj) 5 mg Q5M PRN IV PUSH HR>150 Last administered on 06/02/17 03:21; Start 04/27/17 at 04:00; Stop 07/12/17 at 01: 05; Status DC Insulin Detemir (Levemir Inj) 15 units BID SQ Last administered on 04/28/17 09 :39; Start 04/27/17 at 09:00; Stop 04/28/17 at 15:36; Status DC Potassium Chloride 100 ml @ 50 mls/hr Q2H PRN IV For Potassium 2.8 - 3.2 mEq/L ; Start 04/27/17 at 08:45; Stop 07/12/17 at 00:31; Status DC Potassium Chloride 100 ml @ 50 mls/hr Q2H PRN IV For Potassium 2.8 - 3.2 mEq/ L Last administered on 05/18/17 10:41; Start 04/27/17 at 08:45; Stop 07/12/17 at 00:31; Status DC Potassium Bicarb/ Potassium Chloride (K-Lyte Cl Eff) 50 meq UNSCH PRN PO For Potassium 3.3 - 3.5 mEq/L; Start 04/27/17 at 08:45; Stop 07/12/17 at 00:31; Status DC Potassium Chloride 100 ml @ 25 mls/hr UNSCH PRN IV For Potassium 3.3 - 3.5 mEq /L Last administered on 05/04/17 19:07; Start 04/27/17 at 08:45; Stop 07/12/17 at 00:31; Status DC Potassium Chloride 100 ml @ 50 mls/hr Q2H PRN IV For Potassium 3.3 - 3.5 mEq/ L Last administered on 05/18/17 08:29; Start 04/27/17 at 08:45; Stop 07/12/17 at 00:31; Status DC Magnesium Sulfate 4 gm/Sodium Chloride 100 ml @ 50 mls/hr UNSCH PRN IV For Magnesium 0.9 - 1.1 mg/dL; Start 04/27/17 at 08:45; Stop 07/12/17 at 00:31; Status DC Magnesium Oxide (Mag-Ox) 800 mg UNSCH PRN PO For Magnesium 1.2 - 1.6 mg/dL; Start 04/27/17 at 08:45; Stop 07/12/17 at 00:31; Status DC Magnesium Sulfate 2 gm/Sodium Chloride 100 ml @ 50 mls/hr UNSCH PRN IV For Magnesium 1.2 - 1.6 mg/dL; Start 04/27/17 at 08:45; Stop 07/12/17 at 00:31; Status DC Potassium Phosphate (K-Phos) 2,000 mg Q4H PRN PO For Phosphorus < 2.5 mg/dL Last administered on 04/28/17 15:38; Start 04/27/17 at 08:45; Stop 07/12/17 at 00:31; Status DC Sodium Phosphate 30 mmol/Sodium Chloride 250 ml @ 42 mls/hr UNSCH PRN IV For Phosphorus < 2.5 mg/dL Last administered on 04/27/17 23:59; Start 04/27/17 at 08:45; Stop 07/12/17 at 00:31; Status DC Potassium Phosphate (K-Phos) 2,000 mg UNSCH PRN PO/TUBE SEE LABEL COMMENTS Last administered on 05/08/17 06:32; Start 04/27/17 at 08:45; Stop 07/12/17 at 00:31; Status DC Potassium Phosphate 30 mmol/ Sodium Chloride 260 ml @ 42 mls/hr UNSCH PRN IV SEE LABEL COMMENTS Last administered on 05/04/17 20:54; Start 04/27/17 at 08:45 ; Stop 07/12/17 at 00:31; Status DC Insulin Detemir (Levemir Inj) 10 units BID SQ Last administered on 04/30/17 21 :00; Start 04/28/17 at 21:00; Stop 05/01/17 at 07:49; Status DC Pantoprazole Sodium (Protonix Inj) 40 mg Q24H IV PUSH Last administered on 17:00; Start 04/28/17 at 17:00; Stop 05/07/17 at 12:52; Status DC Insulin Aspart (NovoLOG SUPPLEMENTAL SCALE) 1 ACHS SLIDING SCALE SQ Last administered on 05/18/17 21:00; Start 04/28/17 at 16:00; Stop 05/19/17 at 07:55 ; Status DC Sodium Chloride 250 ml @ 15 mls/hr ONCE ONCE IV ; Start 04/28/17 at 18:00; Stop 04/28/17 at 18:33; Status DC Acetaminophen (Ofirmev 1000 Mg/ 100 ml Inj) 1,000 mg NOW ONCE IV Last administered on 04/29/17 01:00; Start 04/29/17 at 01:00; Stop 04/29/17 at 01:01 ; Status DC Iohexol (Omnipaque 350 Inj) 75 ml STK-MED ONCE IVCONTRAST Last administered on 04/26/17 04:26; Start 04/26/17 at 04:26; Stop 04/29/17 at 10:24; Status DC Fluconazole/ Sodium Chloride 100 ml @ 100 mls/hr Q24H IV Last administered on 04/30/17 14:59; Start 04/29/17 at 14:00; Stop 04/30/17 at 15:40; Status DC Metronidazole (Flagyl) 500 mg Q8HR DOBHOFF Last administered on 05/13/17 13:37 ; Start 04/29/17 at 14:00; Stop 05/13/17 at 16:14; Status DC Albuterol/ Ipratropium (Duoneb Neb) 1 ampule Q4HR NEB PRN NEB CONGESTION Last administered on 05/04/17 20:38; Start 04/30/17 at 04:45; Stop 05/07/17 at 12:46; Status DC Bumetanide (Bumex Inj) 1 mg ONCE ONCE IV PUSH Last administered on 04/30/17 10:14; Start 04/30/17 at 08:00; Stop 04/30/17 at 08:01; Status DC Potassium Chloride/Sodium Chloride 1,000 ml @ 84 mls/hr [id number] IV Last administered on 05/01/17 07:00; Start 04/30/17 at 08:00; Stop 05/01/17 at 07:32 ; Status DC Albuterol/ Ipratropium (Duoneb Neb) 1 ampule Q6HR NEB NEB Last administered on 05/04/17 07:52; Start 04/30/17 at 10:00; Stop 05/04/17 at 09:59; Status DC Cefepime HCl 2000 mg/Sodium Chloride 100 ml @ 200 mls/hr Q8H IV Last administered on 05/04/17 07:53; Start 04/30/17 at 09:00; Stop 05/04/17 at 08:22; Status DC Micafungin Sodium 100 mg/Sodium Chloride 100 ml @ 100 mls/hr Q24H IV Last administered on 05/07/17 10:29; Start 04/30/17 at 09:00; Stop 05/07/17 at 13:49; Status DC Etomidate (Amidate Inj) 20 mg STK-MED ONCE .ROUTE Last administered on 15:07; Start 04/30/17 at 14:56; Stop 04/30/17 at 14:57; Status DC Midazolam HCl (Versed Inj) 5 mg STK-MED ONCE .ROUTE Last administered on 15:06; Start 04/30/17 at 14:57; Stop 04/30/17 at 14:58; Status DC Rocuronium [place] (Zemuron Inj) 50 mg STK-MED ONCE .ROUTE Last administered on 04/30/17 15:07; Start 04/30/17 at 14:58; Stop 04/30/17 at 14:59; Status DC Etomidate (Amidate Inj) 20 mg NOW ONCE IV PUSH ; Start 04/30/17 at 15:30; Stop 04/30/17 at 15:31; Status DC Midazolam HCl (Versed Inj) 5 mg NOW ONCE IV PUSH ; Start 04/30/17 at 15:30; Stop 04/30/17 at 15:32; Status DC Rocuronium [place] (Zemuron Inj) 50 mg NOW ONCE IV PUSH ; Start 04/30/17 at 15: 45; Stop 04/30/17 at 15:46; Status DC Vancomycin HCl 1000 mg/Sodium Chloride 250 ml @ 250 mls/hr Q12H IV ; Start at 15:45; Status Cancel Pharmacy Profile Note 1,000 ml @ 30 mls/hr UNSCH OTHER ; Start 04/30/17 at 15: 45; Stop 05/04/17 at 08:22; Status DC Vancomycin HCl 1250 mg/Sodium Chloride 262.5 ml @ 250 mls/hr Q12H IV Last administered on 05/03/17 07:24; Start 04/30/17 at 18:00; Stop 05/03/17 at 15:39; Status DC Miscellaneous Information SPECIFIC LAB TO BE DRAWN:VANCOMYCIN TROUGH DATE TO... ONCE ONCE .XX ; Start 05/02/17 at 05:45; Stop 05/02/17 at 05:46; Status DC Sodium Chloride 1,000 ml @ 84 mls/hr [id number] IV Last administered on 05/02/17 09:24; Start 05/01/17 at 07:30; Stop 05/02/17 at 11:49; Status DC Insulin Detemir (Levemir Inj) 20 units Q12H SQ Last administered on 05/02/17 09 :23; Start 05/01/17 at 09:00; Stop 05/02/17 at 12:07; Status DC Enoxaparin Sodium (Lovenox Inj) 40 mg Q24H SQ Last administered on 07/14/17 07:47; Start 05/01/17 at 08:00; Stop 07/14/17 at 12:05; Status DC Lactated Ringer's 1,000 ml @ 75 mls/hr [id number] IV Last administered on 05:57; Start 05/02/17 at 13:00; Stop 05/07/17 at 16:50; Status DC Insulin Detemir (Levemir Inj) 25 units Q12H SQ Last administered on 05/04/17 07 :50; Start 05/02/17 at 21:00; Stop 05/05/17 at 09:20; Status DC Vancomycin HCl 1250 mg/Sodium Chloride 262.5 ml @ 262.5 mls/ hr Q24H IV Last administered on 05/04/17 05:21; Start 05/04/17 at 06:00; Stop 05/04/17 at 08:22; Status DC Miscellaneous Information SPECIFIC LAB TO BE ROLF... ONCE ONCE .XX ; Start at 05:45; Stop 05/06/17 at 05:45; Status DC Levofloxacin/ Dextrose 150 ml @ 100 mls/hr Q24H IV Last administered on 10:00; Start 05/04/17 at 09:00; Stop 05/13/17 at 16:14; Status DC Furosemide (Lasix Inj) 10 mg BID@09,18 IV PUSH Last administered on 05/05/17 09 :05; Start 05/04/17 at 18:00; Stop 05/05/17 at 09:01; Status DC Albuterol/ Ipratropium (Duoneb Neb) 1 ampule Q6HR ALT NEB NEB Last administered on 05/05/17 04:30; Start 05/05/17 at 01:00; Stop 05/05/17 at 04:38; Status DC Albuterol/ Ipratropium (Duoneb Neb) 1 ampule Q6HR NEB NEB Last administered on 05/08/17 09:56; Start 05/05/17 at 10:00; Stop 05/08/17 at 10:15; Status DC Insulin Detemir (Levemir Inj) 10 units Q12H SQ Last administered on 05/07/17 10 :43; Start 05/05/17 at 21:00; Stop 05/07/17 at 13:54; Status DC Lactulose (Lactulose Liq) 30 ml DAILY PO Last administered on 05/07/17 10:29; Start 05/05/17 at 09:30; Stop 05/07/17 at 12:50; Status DC Sodium Chloride 1,000 ml @ 999 mls/hr BOLUS ONCE IV Last administered on 09:08; Start 05/06/17 at 07:45; Stop 05/06/17 at 08:45; Status DC Propofol (Diprivan 200 Mg/20 ml Inj) 200 mg STK-MED ONCE IV ; Start 04/21/17 at 12:12; Stop 05/06/17 at 12:13; Status DC Ephedrine Sulfate (ePHEDrine/NS 25 MG/5 ML SYR) 25 mg STK-MED ONCE IV ; Start at 12:12; Stop 05/06/17 at 12:13; Status DC Neostigmine Methylsulfate (Prostigmin Inj) 3 mg STK-MED ONCE IV ; Start at 12:12; Stop 05/06/17 at 12:13; Status DC Phenylephrine HCl (Neosynephrine/ NS 1000 Mcg/10ml Syr) 1,000 mcg STK-MED ONCE IV ; Start 04/21/17 at 12:12; Stop 05/06/17 at 12:13; Status DC Ondansetron HCl (Zofran Inj) 4 mg STK-MED ONCE IV PUSH ; Start 04/21/17 at 12:12 ; Stop 05/06/17 at 12:13; Status DC Albumin Human (Albumin 5% Inj) 25 gm NOW ONCE IV Last administered on 21:11; Start 05/06/17 at 20:45; Stop 05/06/17 at 20:46; Status DC Albuterol Sulfate (Albuterol Neb) 2.5 mg Q2HR NEB PRN NEB DYSPNEA; Start at 12:30; Stop 05/07/17 at 14:30; Status DC Bumetanide (Bumex Inj) 1 mg ONCE ONCE IV PUSH Last administered on 05/07/17 15 :07; Start 05/07/17 at 15:00; Stop 05/07/17 at 15:01; Status DC Metolazone (Zaroxolyn) 2.5 mg ONCE ONCE PO Last administered on 05/07/17 16:36 ; Start 05/07/17 at 15:30; Stop 05/07/17 at 15:31; Status DC Potassium Chloride (KCl Powder) 20 meq ONCE ONCE PO Last administered on 15:00; Start 05/07/17 at 15:00; Stop 05/07/17 at 15:01; Status DC Docusate Sodium (Colace Liq) 100 mg Q12HR PO Last administered on 07/22/17 21 :52; Start 05/07/17 at 21:00; Stop 07/26/17 at 16:13; Status DC Sennosides (Senna Liq) 8.8 mg BID OG-TUBE Last administered on 05/17/17 09:11 ; Start 05/07/17 at 21:00; Stop 05/19/17 at 08:05; Status DC Lactulose (Lactulose Liq) 30 ml QID PO Last administered on 05/16/17 20:56; Start 05/07/17 at 18:00; Stop 05/19/17 at 08:05; Status DC Polyethylene Glycol (Miralax) 17 gm BID OG-TUBE Last administered on 05/16/17 20:56; Start 05/07/17 at 21:00; Stop 05/19/17 at 08:05; Status DC Mineral Oil (Fleet Mineral Oil Enema) 118 ml ONCE ONCE RECTAL ; Start 05/07/17 at 13:00; Stop 05/07/17 at 14:37; Status DC Mineral Oil (Mineral Oil Liq) 30 ml ONCE ONCE PO Last administered on 16:36; Start 05/07/17 at 16:00; Stop 05/07/17 at 16:02; Status DC Methylnaltrexone [place] (Relistor Inj) 12 mg ONCE ONCE SQ Last administered on 05/07/17 16:37; Start 05/07/17 at 15:00; Stop 05/07/17 at 15:01; Status DC Albuterol Sulfate (Albuterol Neb) 2.5 mg Q2HR NEB PRN NEB DYSPNEA Last administered on 07/06/17 23:51; Start 05/07/17 at 13:00; Stop 07/16/17 at 16:36 ; Status DC Lansoprazole (Prevacid Odt) 30 mg DAILY NG Last administered on 12/26/17at 10:54 ; Start 05/08/17 at 09:00 Iohexol (Omnipaque 350 Inj) 60 ml STK-MED ONCE IVCONTRAST Last administered on 05/07/17 13:35; Start 05/07/17 at 13:35; Stop 05/07/17 at 13:36; Status DC Insulin Detemir (Levemir Inj) 15 units Q12H SQ Last administered on 05/10/17 20 :49; Start 05/07/17 at 21:00; Stop 05/11/17 at 09:21; Status DC Fentanyl Citrate (fentaNYL INJ) 100 mcg STK-MED ONCE .ROUTE ; Start 05/07/17 at 14:17; Stop 05/07/17 at 14:18; Status DC Midazolam HCl (Versed Inj) 5 mg STK-MED ONCE .ROUTE ; Start 05/07/17 at 14:18; Stop 05/07/17 at 14:19; Status DC Mineral Oil (Fleet Mineral Oil Enema) 118 ml ONCE ONCE RECTAL Last administered on 05/07/17 16:35; Start 05/07/17 at 16:00; Stop 05/07/17 at 16:02; Status DC Fentanyl Citrate (fentaNYL INJ) 50 mcg NOW ONCE IV Last administered on 17:21; Start 05/07/17 at 17:15; Stop 05/07/17 at 17:20; Status DC Midazolam HCl (Versed Inj) 1 mg NOW ONCE IV Last administered on 05/07/17 17: 15; Start 05/07/17 at 17:15; Stop 05/07/17 at 17:20; Status DC Potassium Chloride (KCl Powder) 80 meq ONCE ONCE PO Last administered on 10:29; Start 05/08/17 at 10:00; Stop 05/08/17 at 10:01; Status DC Potassium Chloride 100 ml @ 100 mls/hr Q1H IV Last administered on 05/08/17 15 :24; Start 05/08/17 at 10:00; Stop 05/08/17 at 12:59; Status DC Potassium Phos/ Sodium Phos (K-Phos Neutral) 1,000 mg ONCE ONCE PO Last administered on 05/08/17 10:46; Start 05/08/17 at 10:00; Stop 05/08/17 at 10:01; Status DC Bumetanide (Bumex Inj) 1 mg ONCE ONCE IV PUSH Last administered on 05/08/17 10 :28; Start 05/08/17 at 10:00; Stop 05/08/17 at 10:01; Status DC Albuterol/ Ipratropium (Duoneb Neb) 1 ampule Q6HR NEB NEB Last administered on 05/12/17 15:53; Start 05/08/17 at 16:00; Stop 05/12/17 at 15:59; Status DC Furosemide (Lasix Inj) 20 mg BID@09,18 IV PUSH Last administered on 05/10/17 18 :00; Start 05/10/17 at 10:00; Stop 05/11/17 at 06:15; Status DC Furosemide (Lasix Inj) 40 mg BID@0900,1800 IV PUSH Last administered on 17:53; Start 05/11/17 at 09:00; Stop 05/18/17 at 08:06; Status DC Acetazolamide Sodium (Diamox Inj) 500 mg DAILY IV PUSH Last administered on 08:54; Start 05/11/17 at 09:30; Stop 05/12/17 at 23:00; Status DC Insulin Detemir (Levemir Inj) 5 units Q12H SQ Last administered on 05/17/17 09 :12; Start 05/11/17 at 21:00; Stop 05/18/17 at 08:06; Status DC Protein (Beneprotein Powder) 1 pack TID G-TUBE Last administered on 10/03/17at 09 :00; Start 05/12/17 at 13:00; Stop 10/03/17 at 11:56; Status DC Acetazolamide Sodium (Diamox Inj) 500 mg ONCE ONCE IV PUSH Last administered on 05/13/17 22:40; Start 05/13/17 at 22:00; Stop 05/13/17 at 22:01; Status DC Cisatracurium Besylate (Nimbex Inj) 12 mg ONCE ONCE IV PUSH Last administered on 05/15/17 15:15; Start 05/14/17 at 17:45; Stop 05/14/17 at 17:49; Status DC Fentanyl Citrate (fentaNYL INJ) 100 mcg REVENUE ACCOUNTING MANAGER IV PUSH Last administered on 15:15; Start 05/14/17 at 17:45; Stop 05/15/17 at 17:44; Status DC Midazolam HCl (Versed Inj) 2 mg REVENUE ACCOUNTING MANAGER IV PUSH Last administered on 15:15; Start 05/14/17 at 17:45; Stop 05/15/17 at 17:44; Status DC Cisatracurium Besylate (Nimbex Inj) 12 mg REVENUE ACCOUNTING MANAGER IV PUSH ; Start 05/14/17 at 18:00; Stop 05/15/17 at 17:59; Status DC Cefazolin Sodium 1000 mg/Sodium Chloride 100 ml @ 200 mls/hr REVENUE ACCOUNTING MANAGER IV Last administered on 05/16/17 12:35; Start 05/15/17 at 17:15; Stop 05/18/17 at 17:14 ; Status DC Propofol (Diprivan 200 Mg/20 ml Inj) 210 mg STK-MED ONCE IV ; Start 05/16/17 at 13:30; Stop 05/16/17 at 18:25; Status DC Sodium Chloride 1,000 ml @ 75 mls/hr [id number] IV Last administered on 12:42; Start 05/17/17 at 11:45; Stop 05/19/17 at 07:55; Status DC Furosemide (Lasix Inj) 40 mg DAILY IV PUSH Last administered on 05/18/17 08:29 ; Start 05/18/17 at 09:00; Stop 05/19/17 at 07:55; Status DC Furosemide (Lasix Liq) 40 mg DAILY NG Last administered on 06/18/17 11:02; Start 05/19/17 at 09:00; Stop 06/19/17 at 06:54; Status DC Dextrose (D50w (Vial) Inj) 25 ml UNSCH PRN IV PUSH HYPOGLYCEMIA-SEE COMMENTS; Start 05/19/17 at 08:00; Stop 05/20/17 at 20:59; Status DC Insulin Human Regular (NovoLIN R SUPPLEMENTAL SCALE) 1 Q4HR SQ Last administered on 05/21/17 12:00; Start 05/19/17 at 08:00; Stop 05/21/17 at 13:15 ; Status DC Insulin Detemir (Levemir Inj) 8 units DAILY SQ Last administered on 05/20/17 09:00; Start 05/19/17 at 09:00; Stop 05/21/17 at 13:15; Status DC Dextrose (D50w (Syr) Inj) 25 ml UNSCH PRN IV PUSH HYPOGLYCEMIA-SEE COMMENTS Last administered on 05/20/17 21:14; Start 05/20/17 at 21:00; Stop 05/21/17 at 13:34; Status DC Insulin Detemir (Levemir Inj) 7 units Q12H SQ Last administered on 05/22/17 09 :00; Start 05/21/17 at 21:00; Stop 05/22/17 at 17:19; Status DC Dextrose (D50w (Vial) Inj) 50 ml UNSCH PRN IV PUSH HYPOGLYCEMIA-SEE COMMENTS; Start 05/21/17 at 13:15; Stop 05/22/17 at 17:06; Status DC Glucagon (Glucagon Inj) 1 mg UNSCH PRN OTHER HYPOGLYCEMIA-SEE COMMENTS; Start 05/21/17 at 13:15; Stop 10/08/17 at 11:08; Status DC Insulin Aspart (NovoLOG SUPPLEMENTAL SCALE) 1 ACHS SLIDING SCALE SQ Last administered on 06/11/17 11:56; Start 05/21/17 at 17:00; Stop 06/12/17 at 07: 10; Status DC Dextrose (D50w (Syr) Inj) 50 ml UNSCH PRN IV PUSH HYPOGLYCEMIA-SEE COMMENTS Last administered on 10/04/17at 01:57; Start 05/22/17 at 17:15; Stop 10/08/17 at 11 :08; Status DC Insulin Detemir (Levemir Inj) 5 units Q12H SQ Last administered on 05/27/17 21 :22; Start 05/22/17 at 21:00; Stop 05/28/17 at 09:50; Status DC Enalaprilat (Vasotec Inj) 1.25 mg Q6H PRN IV PUSH SBP> OR = 180, DBP> OR = 100 Last administered on 05/31/17 05:28; Start 05/24/17 at 22:45; Stop 05/31/17 at 07:41; Status DC Water (Free Water) VOLUME: 300 ML Q6HR G-TUBE Last administered on 06/10/17 06:00; Start 05/25/17 at 14:15; Stop 06/10/17 at 11:23; Status DC Acetazolamide Sodium (Diamox Inj) 500 mg ONCE ONCE IV PUSH Last administered on 05/26/17 08:54; Start 05/26/17 at 09:00; Stop 05/26/17 at 09:01; Status DC Ceftriaxone Sodium 1000 mg/ Sodium Chloride 100 ml @ 200 mls/hr Q24H IV Last administered on 05/27/17 08:32; Start 05/26/17 at 09:00; Stop 05/27/17 at 15:41 ; Status DC Cefepime HCl 1000 mg/Sodium Chloride 100 ml @ 200 mls/hr Q12H IV Last administered on 06/03/17 05:32; Start 05/27/17 at 16:00; Stop 06/03/17 at 09:12 ; Status DC Sodium Chloride 250 ml @ 15 mls/hr ONCE ONCE IV Last administered on 09:45; Start 05/28/17 at 09:45; Stop 05/29/17 at 02:24; Status DC Acetaminophen (Tylenol) 650 mg Q4H PRN PO SEE LABEL COMMENTS; Start 05/28/17 at 10:00; Stop 06/10/17 at 11:23; Status DC Diphenhydramine HCl (Benadryl) 25 mg Q4H PRN PO SEE LABEL COMMENTS; Start 05/28 at 10:00; Stop 06/02/17 at 07:40; Status DC Furosemide (Lasix Inj) 20 mg ONCE ONCE IV PUSH ; Start 05/28/17 at 10:00; Stop 05/28/17 at 10:01; Status DC Insulin Detemir (Levemir Inj) 7 units Q12H SQ Last administered on 06/20/17 21:12; Start 05/28/17 at 21:00; Stop 06/21/17 at 07:27; Status DC Artificial Tears (Tears Naturale Opth Soln) 1 drop Q4H PRN EACH EYE DRY EYE; Start 05/29/17 at 21:15; Stop 06/12/17 at 07:10; Status DC Hydralazine HCl (Apresoline Inj) 20 mg Q4H PRN IV PUSH SBP >160 Last administered on 06/21/17 04:06; Start 05/31/17 at 07:45; Stop 06/21/17 at 07: 23; Status DC Lisinopril (Prinivil) 10 mg Q12HR PO Last administered on 06/20/17 21:12; Start 05/31/17 at 09:00; Stop 06/21/17 at 07:23; Status DC Artificial Tears (Tears Naturale Opth Soln) 1 drop Q8HR EACH EYE Last administered on 12/19/17at 16:09; Start 06/12/17 at 07:15; Stop 12/19/17 at 19: 17; Status DC Insulin Aspart (NovoLOG SUPPLEMENTAL SCALE) 1 Q6HR SQ Last administered on 18:00; Start 06/12/17 at 12:00; Stop 07/16/17 at 16:36; Status DC Sodium Chloride (Sodium Chloride) 2 gm ONCE ONCE PEG Last administered on 09:41; Start 06/12/17 at 07:00; Stop 06/12/17 at 07:12; Status DC Albuterol/ Ipratropium (Duoneb Neb) 1 ampule Q6HR NEB NEB Last administered on 06/16/17 03:46; Start 06/12/17 at 10:00; Stop 06/16/17 at 07:10; Status DC Insulin Aspart (NovoLOG INJ) 10 units ONCE ONCE SQ Last administered on 10:00; Start 06/12/17 at 10:00; Stop 06/12/17 at 10:32; Status DC Erythromycin Ethylsuccinate (Ees) 250 mg Q8HR PO ; Start 06/16/17 at 02:00; Stop 06/16/17 at 02:00; Status DC Methylnaltrexone [place] (Relistor Inj) 12 mg ONCE ONCE SQ Last administered on 06/16/17 01:40; Start 06/16/17 at 02:00; Stop 06/16/17 at 02:01; Status DC Erythromycin (Erythromycin Ec) 250 mg Q8HR PO Last administered on 06/18/17 12:27; Start 06/16/17 at 02:00; Stop 06/18/17 at 22:53; Status DC Albuterol/ Ipratropium (Duoneb Neb) 1 ampule Q6HR NEB NEB Last administered on 06/20/17 08:04; Start 06/16/17 at 10:00; Stop 06/20/17 at 09:24; Status DC Erythromycin Ethylsuccinate (Ees 400 Mg/5 ml Liq) 250 mg Q8H PO Last administered on 06/19/17 01:19; Start 06/19/17 at 00:00; Stop 06/19/17 at 06 :54; Status DC Polyethylene Glycol (Miralax) 17 gm DAILY PO ; Start 06/19/17 at 09:00; Stop 06/23/17 at 06:47; Status DC Albuterol/ Ipratropium (Duoneb Neb) 1 ampule Q6HR NEB NEB Last administered on 06/24/17 08:30; Start 06/20/17 at 10:00; Stop 06/24/17 at 09:59; Status DC Hydralazine HCl (Apresoline Inj) 10 mg Q1H PRN IV PUSH SBP >160 Last administered on 07/10/17 13:51; Start 06/21/17 at 07:30; Stop 07/12/17 at 00: 26; Status DC Lisinopril (Prinivil) 20 mg Q12HR PO Last administered on 08/22/17 21:16; Start 06/21/17 at 09:00; Stop 08/23/17 at 07:26; Status DC Labetalol HCl (Trandate Inj) 10 mg Q1H PRN IV PUSH SBP>160, DBP>90, HR>65 Last administered on 07/08/17 05:02; Start 06/21/17 at 07:30; Stop 07/12/17 at 00: 26; Status DC Nitroglycerin (Nitroglycerin 2% Oint) 2 inch Q6H PRN TOPICAL SBP>160, DBP>90 Last administered on 06/30/17 14:37; Start 06/21/17 at 08:00 Piperacillin Sod/ Tazobactam Sod 100 ml @ 200 mls/hr Q6H IV Last administered on 06/29/17 02:07; Start 06/21/17 at 09:00; Stop 06/29/17 at 08:59; Status DC Pharmacy Profile Note 0 ml @ 0 mls/hr UNSCH OTHER ; Start 06/21/17 at 07:30; Stop 06/23/17 at 06:46; Status DC Guaifenesin (Robitussin Liq) 400 mg Q8HR PEG Last administered on 06/29/17 06 :02; Start 06/21/17 at 14:00; Stop 06/29/17 at 13:59; Status DC Sodium Chloride (Sodium Chloride 3% Neb) 2 ml Q6HR NEB NEB Last administered on 06/29/17 08:21; Start 06/21/17 at 10:00; Stop 06/29/17 at 09:59; Status DC Insulin Detemir (Levemir Inj) 10 units Q12H SQ Last administered on 07/19/17 08:39; Start 06/21/17 at 09:00; Stop 07/19/17 at 09:26; Status DC Vancomycin HCl 1000 mg/Sodium Chloride 250 ml @ 250 mls/hr ONCE ONCE IV Last administered on 06/21/17 11:50; Start 06/21/17 at 12:00; Stop 06/21/17 at 12 :59; Status DC Vancomycin HCl 750 mg/Sodium Chloride 257.5 ml @ 250 mls/hr Q12H IV Last administered on 06/23/17 00:02; Start 06/22/17 at 00:00; Stop 06/23/17 at 06 :46; Status DC Miscellaneous Information SPECIFIC LAB TO BE ROLF... ONCE ONCE .XX ; Start at 23:45; Stop 06/22/17 at 23:46; Status DC Miscellaneous Information SPECIFIC LAB TO BE ROLF... ONCE ONCE .XX ; Start at 11:45; Stop 06/23/17 at 11:46; Status DC Polyethylene Glycol (Miralax) 17 gm BID PEG Last administered on 07/02/17 08: 35; Start 06/23/17 at 09:00; Stop 07/09/17 at 08:04; Status DC Albuterol/ Ipratropium (Duoneb Neb) 1 ampule Q6HR NEB NEB Last administered on 07/08/17 10:22; Start 07/04/17 at 10:00; Stop 07/08/17 at 09:59; Status DC Polyethylene Glycol (Miralax) 17 gm DAILY PEG Last administered on 10/02/17at 07: 59; Start 07/09/17 at 09:00; Stop 10/03/17 at 11:56; Status DC Clonidine (Catapres) 0.1 mg Q6H PRN PO SBP >160 Last administered on 16:22; Start 07/12/17 at 00:30; Stop 10/03/17 at 11:55; Status DC Heparin Sodium (Porcine) (Heparin Inj) 5,000 units Q8HR SQ Last administered on 12/27/17at 05:19; Start 07/15/17 at 08:00 Sodium Chloride 1,000 ml @ 42 mls/hr [id number] IV Last administered on 15:15; Start 07/14/17 at 14:45; Stop 07/15/17 at 08:00; Status DC Albuterol/ Ipratropium (Duoneb Neb) 2.5 ampule Q6HR NEB NEB ; Start 07/16/17 at 16:45; Stop 07/16/17 at 19:01; Status DC Hyoscyamine Sulfate (Levsin Liq) 0.125 mg BID PEG ; Start 07/16/17 at 21:00; Stop 07/16/17 at 21:00; Status DC Albuterol Sulfate (Albuterol Neb) 2.5 mg Q6HR NEB INH Last administered on 19:49; Start 07/16/17 at 22:00; Stop 07/20/17 at 21:59; Status DC Acetylcysteine (Mucomyst 20% Neb) 2 ml Q8HR NEB PRN NEB SECRETIONS; Start at 08:00; Stop 07/17/17 at 08:00; Status DC Acetylcysteine (Mucomyst 20% Neb) 2 ml Q8HR NEB PRN NEB SECRETIONS Last administered on 07/21/17 03:31; Start 07/17/17 at 08:00; Stop 07/21/17 at 07 :59; Status DC Trimethoprim/ Sulfamethoxazole (Bactrim 800-160 Mg/20 ml Liq) 20 ml Q12H PO ; Start 07/17/17 at 09:45; Stop 07/17/17 at 09:50; Status DC Trimethoprim/ Sulfamethoxazole (Bactrim 800-160 Mg/20 ml Liq) 20 ml Q12HR PEG Last administered on 07/19/17 21:27; Start 07/17/17 at 11:00; Stop 07/19/17 at 21:01; Status DC Insulin Detemir (Levemir Inj) 15 units Q12H SQ Last administered on 07/20/17 08:00; Start 07/19/17 at 21:00; Stop 07/20/17 at 08:26; Status DC Insulin Detemir (Levemir Inj) 18 units Q12H SQ Last administered on 07/22/17 13:46; Start 07/20/17 at 21:00; Stop 07/22/17 at 14:39; Status DC Trimethoprim/ Sulfamethoxazole (Bactrim 800-160 Mg/20 ml Liq) 20 ml Q12HR PEG Last administered on 07/21/17 08:12; Start 07/20/17 at 15:00; Stop 07/21/17 at 13:16; Status DC Albuterol/ Ipratropium (Duoneb Neb) 1 ampule ONCE ONCE NEB Last administered on 07/21/17 03:30; Start 07/21/17 at 03:30; Stop 07/21/17 at 03:31; Status DC Albuterol/ Ipratropium (Duoneb Neb) 1 ampule ONCE PRN NEB SHORTNESS OF BREATH; Start 07/21/17 at 04:15; Stop 07/21/17 at 07:30; Status DC Albuterol/ Ipratropium (Duoneb Neb) 1 ampule Q6HR NEB NEB Last administered on 07/25/17 09:05; Start 07/21/17 at 10:00; Stop 07/25/17 at 09:59; Status DC Acetylcysteine (Mucomyst 20% Neb) 2 ml Q8HR NEB PRN NEB SECRETIONS; Start at 07:00; Stop 07/21/17 at 07:24; Status DC Piperacillin Sod/ Tazobactam Sod 100 ml @ 200 mls/hr Q6H IV Last administered on 07/25/17 04:56; Start 07/21/17 at 10:00; Stop 07/25/17 at 07:50; Status DC Azithromycin 500 mg/Sodium Chloride 250 ml @ 250 mls/hr Q24H IV Last administered on 07/25/17 10:58; Start 07/21/17 at 11:00; Stop 07/25/17 at 13 :36; Status DC Insulin Aspart (NovoLOG SUPPLEMENTAL SCALE) 1 Q6HR SQ Last administered on 06:47; Start 07/21/17 at 18:00; Stop 10/08/17 at 09:45; Status DC Insulin Detemir (Levemir Inj) 15 units Q12H SQ Last administered on 07/26/17 23:10; Start 07/22/17 at 21:00; Stop 07/27/17 at 09:00; Status DC Ceftolozane/ Tazobactam 1500 mg/Sodium Chloride 100 ml @ 100 mls/hr Q8H IV Last administered on 08/06/17 08:25; Start 07/25/17 at 09:00; Stop 08/06/17 at 12:58; Status DC Fluconazole/ Sodium Chloride 100 ml @ 100 mls/hr ONCE ONCE IV Last administered on 07/26/17 17:00; Start 07/26/17 at 17:00; Stop 07/26/17 at 17 :59; Status DC Insulin Detemir (Levemir Inj) 7 units Q12HR SQ Last administered on 09/14/17 07:32; Start 07/27/17 at 09:00; Stop 09/14/17 at 15:42; Status DC Furosemide (Lasix Liq) 40 mg ONCE ONCE NG Last administered on 07/29/17 17: 29; Start 07/29/17 at 16:00; Stop 07/29/17 at 16:02; Status DC Lactated Ringer's 1,000 ml @ 30 mls/hr Q24H PRN IV SEE LABEL COMMENTS; Start 08/03/17 at 06:30; Stop 08/06/17 at 06:29; Status DC Lidocaine/ Epinephrine (Xylocaine-Epi 1%-1:100,000 Inj) 20 ml STK-MED ONCE .ROUTE Last administered on 08/05/17 17:58; Start 08/05/17 at 17:58; Stop 08/05/17 at 17:59; Status DC Colistin Sulfate (Coly-Mycin M Neb) 75 mg Q8HR NEB NEB Last administered on 08:25; Start 08/06/17 at 16:00; Stop 08/12/17 at 15:59; Status DC Furosemide (Lasix Liq) 40 mg ONCE ONCE NG Last administered on 08/08/17 12: 54; Start 08/08/17 at 12:15; Stop 08/08/17 at 12:16; Status DC Albuterol/ Ipratropium (Duoneb Neb) 1 ampule Q6HR NEB PRN NEB WHEEZING Last administered on 10/16/17 07:17; Start 08/10/17 at 14:00; Stop 10/25/17 at 08: 28; Status DC Lisinopril (Prinivil) 30 mg Q12HR PO Last administered on 08/24/17 21:00; Start 08/23/17 at 09:00; Stop 08/25/17 at 07:46; Status DC Lisinopril (Prinivil) 40 mg Q12HR PO Last administered on 09/15/17 20:54; Start 08/25/17 at 09:00; Stop 09/15/17 at 22:16; Status DC Amlodipine Besylate (Norvasc) 5 mg DAILY PO Last administered on 09/01/17 09:24 ; Start 08/31/17 at 09:00; Stop 09/02/17 at 06:48; Status DC Amlodipine Besylate (Norvasc) 10 mg DAILY PO Last administered on 10/02/17at 08: 00; Start 09/02/17 at 09:00; Stop 10/03/17 at 11:55; Status DC Metoprolol Tartrate (Lopressor) 12.5 mg Q12HR PO Last administered on 09/06/17at 08:46; Start 09/05/17 at 21:00; Stop 10/03/17 at 11:55; Status DC Miscellaneous (Pill Splitter) 1 ea UNSCH PRN OTHER SEE LABEL COMMENTS; Start at 11:00 Trimethoprim/ Sulfamethoxazole (Bactrim 800-160 Mg/20 ml Liq) 20 ml Q12H PEG ; Start 09/09/17 at 20:00; Stop 09/09/17 at 20:00; Status DC Trimethoprim/ Sulfamethoxazole (Bactrim Ds 800-160 Mg) 1 tab Q12HR PEG Last administered on 09/29/17at 09:36; Start 09/09/17 at 21:00; Stop 09/29/17 at 22:01 ; Status DC Insulin Detemir (Levemir Inj) 12 units Q12HR SQ Last administered on 09/20/17at 20:49; Start 09/14/17 at 21:00; Stop 09/21/17 at 08:28; Status DC Lisinopril (Prinivil) 40 mg DAILY PO Last administered on 09/19/17at 09:39; Start 09/16/17 at 09:00; Stop 09/20/17 at 17:11; Status DC Sodium Polystyrene Sulfonate (Kayexalate Liq) 15 gm ONCE ONCE PO Last administered on 09/16/17at 11:01; Start 09/16/17 at 10:45; Stop 09/16/17 at 10:46 ; Status DC Acetaminophen (Tylenol) 500 mg Q6H PRN PEG Fever > 100.0F Last administered on 09/16/17at 16:36; Start 09/16/17 at 16:15; Stop 10/26/17 at 06:36; Status DC Dextrose 1,000 ml @ 75 mls/hr [id number] IV Last administered on 09/20/17at 11:09 ; Start 09/18/17 at 15:30; Stop 09/20/17 at 17:11; Status DC Lisinopril (Prinivil) 20 mg DAILY PO ; Start 09/21/17 at 09:00; Stop 09/21/17 at 23:55; Status DC Metoclopramide HCl (Reglan Inj) 10 mg ONCE ONCE IV PUSH Last administered on at 03:37; Start 09/21/17 at 03:15; Stop 09/21/17 at 03:16; Status DC Insulin Detemir (Levemir Inj) 12 units HS SQ Last administered on 09/26/17at 21: 00; Start 09/21/17 at 21:00; Stop 09/27/17 at 17:31; Status DC Calcium Gluconate 1 gm/Dextrose 110 ml @ 110 mls/hr ONCE ONCE IV Last administered on 09/21/17at 11:43; Start 09/21/17 at 11:15; Stop 09/21/17 at 12:14 ; Status DC Sodium Polystyrene Sulfonate (Kayexalate Liq) 15 gm QID PEG Last administered on 09/22/17at 09:30; Start 09/21/17 at 13:00; Stop 09/22/17 at 09:02; Status DC Insulin Human Regular (NovoLIN R INJ) 10 units ONCE ONCE IV PUSH Last administered on 09/21/17at 11:42; Start 09/21/17 at 11:30; Stop 09/21/17 at 11:31 ; Status DC Dextrose (D50w (Vial) Inj) 50 ml ONCE ONCE IV PUSH Last administered on at 11:42; Start 09/21/17 at 11:30; Stop 09/21/17 at 11:31; Status DC Albuterol Sulfate (Albuterol Concentrated Neb) 10 mg ONCE ONCE INH Last administered on 09/21/17at 11:30; Start 09/21/17 at 11:30; Stop 09/21/17 at 11:31 ; Status DC Sodium Chloride 500 ml @ 100 mls/hr Q5H IV Last administered on 09/21/17at 13: 38; Start 09/21/17 at 13:00; Stop 09/21/17 at 17:59; Status DC Sodium Chloride 1,000 ml @ 42 mls/hr [id number] IV Last administered on at 08:34; Start 09/21/17 at 21:00; Stop 09/24/17 at 08:24; Status DC Hydralazine HCl (Apresoline) 10 mg Q8HR PEG Last administered on 12/27/17at 05: 19; Start 09/24/17 at 14:00 Hydralazine HCl (Apresoline) 10 mg ONCE ONCE PEG Last administered on at 11:49; Start 09/24/17 at 09:00; Stop 09/24/17 at 09:01; Status DC Cefepime HCl 2000 mg/Sodium Chloride 100 ml @ 200 mls/hr Q8H IV Last administered on 09/29/17at 05:35; Start 09/25/17 at 12:00; Stop 09/29/17 at 08:46 ; Status DC Sodium Polystyrene Sulfonate (Kayexalate Liq) 15 gm ONCE ONCE RECTAL Last administered on 09/26/17at 10:51; Start 09/26/17 at 09:15; Stop 09/26/17 at 09:16 ; Status DC Sodium Polystyrene Sulfonate (Kayexalate Liq) 15 gm ONCE ONCE PEG Last administered on 09/27/17at 18:11; Start 09/27/17 at 17:15; Stop 09/27/17 at 17:16 ; Status DC Insulin Detemir (Levemir Inj) 10 units BID SQ Last administered on 09/29/17at 09 :37; Start 09/27/17 at 21:00; Stop 09/29/17 at 15:14; Status DC Doxazosin Mesylate (Cardura) 1 mg DAILY PO Last administered on 10/02/17at 07:59 ; Start 09/28/17 at 10:00; Stop 10/03/17 at 11:55; Status DC Ceftolozane/ Tazobactam 1500 mg/Sodium Chloride 100 ml @ 100 mls/hr Q8H IV Last administered on 09/30/17at 01:51; Start 09/29/17 at 10:00; Stop 09/30/17 at 10:38; Status DC Lactobacillus Acidophilus (Lactinex) 1 tab Q12HR PO Last administered on at 09:08; Start 09/29/17 at 21:00; Stop 10/03/17 at 11:55; Status DC Insulin Human NPH (NovoLIN N INJ) 7 units TID SQ Last administered on at 18:16; Start 09/29/17 at 18:00; Stop 10/01/17 at 19:07; Status DC Acetylcysteine (Mucomyst 10% Neb) 2 ml Q6HR NEB NEB ; Start 09/29/17 at 16:00; Stop 09/29/17 at 16:21; Status DC Acetylcysteine (Mucomyst 10% Neb) 2 ml Q6HR NEB NEB Last administered on at 08:30; Start 09/29/17 at 14:30; Stop 10/03/17 at 14:29; Status DC Metoclopramide HCl (Reglan Inj) 10 mg ONCE ONCE IV PUSH Last administered on at 22:11; Start 09/29/17 at 21:30; Stop 09/29/17 at 21:31; Status DC Trimethoprim/ Sulfamethoxazole (Bactrim 800-160 Mg/20 ml Liq) 20 ml BID PEG Last administered on 10/03/17at 09:08; Start 09/29/17 at 22:02; Stop 10/03/17 at 18 :48; Status DC Colistin Sulfate (Coly-Mycin M Neb) 75 mg Q8HR NEB NEB Last administered on at 07:29; Start 09/30/17 at 16:00; Stop 10/21/17 at 15:59; Status DC Insulin Human NPH (NovoLIN N INJ) 10 units TID SQ Last administered on at 18:43; Start 10/02/17 at 09:00; Stop 10/07/17 at 12:30; Status DC Sodium Polystyrene Sulfonate (Kayexalate Liq) 15 gm BID PO Last administered on 10/03/17at 10:09; Start 10/03/17 at 09:00; Stop 10/03/17 at 11:55; Status DC Sodium Chloride 1,000 ml @ 100 mls/hr Q10H IV Last administered on 10/03/17at 20 :26; Start 10/03/17 at 08:30; Stop 10/03/17 at 22:36; Status DC Levofloxacin/ Dextrose 100 ml @ 100 mls/hr Q24H IV Last administered on 11:46; Start 10/03/17 at 10:00; Stop 10/03/17 at 20:03; Status DC Amlodipine Besylate (Norvasc) 10 mg DAILY PEG Last administered on 12/26/17 10 :51; Start 10/04/17 at 09:00 Calcium/Vitamin D (Oscal-D 250-125) 250 mg TID PEG Last administered on 17:29; Start 10/03/17 at 13:00 Cholecalciferol (Vitamin D3) 5,000 units DAILY PEG Last administered on 10:51; Start 10/04/17 at 09:00 Clonidine (Catapres) 0.1 mg Q6H PRN PEG SBP >160 Last administered on 00:23; Start 10/03/17 at 12:30 Doxazosin Mesylate (Cardura) 1 mg DAILY PEG Last administered on 11/18/17 09: 04; Start 10/04/17 at 09:00; Stop 11/22/17 at 17:42; Status DC Lactobacillus Acidophilus (Lactinex) 1 tab Q12HR PEG Last administered on 20:46; Start 10/03/17 at 21:00 Metoprolol Tartrate (Lopressor) 12.5 mg Q12HR PEG Last administered on 19:28; Start 10/03/17 at 21:00; Stop 10/26/17 at 08:47; Status DC Sodium Polystyrene Sulfonate (Kayexalate Liq) 15 gm BID PEG Last administered on 10/03/17 21:00; Start 10/03/17 at 21:00; Stop 10/05/17 at 14:49; Status DC Polyethylene Glycol (Miralax) 17 gm DAILY PRN PEG Constipation; Start 10/03/17 at 12:00 Protein (Beneprotein Powder) 1 pack TID PRN G-TUBE Constipation; Start 10/03/17 at 12:00 Albuterol Sulfate (Albuterol Neb) 2.5 mg Q2HR NEB PRN NEB WHEEZING Last administered on 12/24/17 16:19; Start 10/03/17 at 21:45 Dextrose 1,000 ml @ 30 mls/hr Q24H IV ; Start 10/03/17 at 22:45; Status Cancel Dextrose (D50w (Vial) Inj) 25 ml ONCE ONCE IV PUSH Last administered on at 22:42; Start 10/03/17 at 22:45; Stop 10/03/17 at 22:46; Status DC Furosemide (Lasix Inj) 40 mg ONCE ONCE IV PUSH Last administered on 10/03/17at 22:46; Start 10/03/17 at 22:45; Stop 10/03/17 at 22:46; Status DC Dextrose 500 ml @ 10 mls/hr Q24H IV Last administered on 10/04/17at 15:49; Start 10/03/17 at 23:00; Stop 10/05/17 at 14:49; Status DC Fentanyl Citrate (fentaNYL INJ) 100 mcg STK-MED ONCE .ROUTE ; Start 10/03/17 at 22:47; Stop 10/03/17 at 22:48; Status DC Fentanyl Citrate (fentaNYL INJ) 100 mcg NOW ONCE IV PUSH ; Start 10/03/17 at 23: 00; Stop 10/03/17 at 23:01; Status DC Fentanyl Citrate (fentaNYL INJ) 50 mcg ONCE ONCE IV PUSH Last administered on 10/03/17at 23:00; Start 10/03/17 at 23:00; Stop 10/03/17 at 23:10; Status DC Fentanyl Citrate (fentaNYL INJ) 50 mcg Q1H PRN IV PUSH SEDATION; Start 10/03/17 at 23:00; Stop 10/29/17 at 10:46; Status DC Chlorhexidine Gluconate (Peridex 0.12% Liq) 15 ml BID@08,20 MT Last administered on 10/31/17at 21:41; Start 10/04/17 at 08:00; Stop 11/01/17 at 11:43; Status DC Furosemide (Lasix Inj) 40 mg ONCE ONCE IV PUSH Last administered on 10/04/17at 05:52; Start 10/04/17 at 05:00; Stop 10/04/17 at 05:01; Status DC Furosemide (Lasix Inj) 40 mg Q6HR IV PUSH Last administered on 10/06/17at 05:28; Start 10/04/17 at 12:00; Stop 10/06/17 at 11:00; Status DC Insulin Human NPH (NovoLIN N INJ) 5 units BID@08,17 SQ Last administered on 10/10at 08:05; Start 10/07/17 at 17:00; Stop 10/10/17 at 11:33; Status DC Insulin Detemir (Levemir Inj) 7 units Q12H SQ Last administered on 10/25/17at 23 :55; Start 10/08/17 at 12:00; Stop 10/26/17 at 06:36; Status DC Dextrose (D50w (Vial) Inj) 50 ml UNSCH PRN IV PUSH HYPOGLYCEMIA-SEE COMMENTS Last administered on 10/28/17at 17:42; Start 10/08/17 at 09:45; Stop 11/04/17 at 12 :34; Status DC Glucagon (Glucagon Inj) 1 mg UNSCH PRN OTHER HYPOGLYCEMIA-SEE COMMENTS Last administered on 10/14/17at 00:45; Start 10/08/17 at 09:45; Stop 11/04/17 at 12:34; Status DC Insulin Human Regular (NovoLIN R SUPPLEMENTAL SCALE) 1 Q6HR SQ Last administered on 11/04/17at 06:00; Start 10/08/17 at 12:00; Stop 11/04/17 at 12:27; Status DC Water (Free Water) 250 ml Q8HR G-TUBE Last administered on 10/20/17at 05:20; Start 10/18/17 at 14:00; Stop 10/20/17 at 10:15; Status DC Water (Free Water) VOLUME OF WATER: ( 200 ) ML Q6HR G-TUBE Last administered on 10/27/17at 05:49; Start 10/20/17 at 12:00; Stop 10/27/17 at 10:02; Status DC Albuterol/ Ipratropium (Duoneb Neb) 1 ampule Q6HR NEB NEB Last administered on 10/29/17at 08:34; Start 10/25/17 at 10:00; Stop 10/29/17 at 09:59; Status DC Insulin Detemir (Levemir Inj) 8 units Q12H SQ Last administered on 12/02/17at 11: 51; Start 10/26/17 at 12:00; Stop 12/02/17 at 19:10; Status DC Acetaminophen (Tylenol 650 Mg/ 20 ml Liq) 650 mg Q6H PRN PEG fever Last administered on 12/15/17 05:51; Start 10/26/17 at 06:45 Oxycodone HCl (Roxicodone Intensol Liq) 5 mg Q6H PRN PO pain 6-10 Last administered on 12/27/17at 05:19; Start 10/29/17 at 11:00 Iohexol (Omnipaque 350 Inj) 75 ml STK-MED ONCE IVCONTRAST Last administered on 11/01/17at 16:59; Start 11/01/17 at 16:59; Stop 11/01/17 at 17:00; Status DC Dextrose (D50w (Vial) Inj) 50 ml UNSCH PRN IV PUSH HYPOGLYCEMIA-SEE COMMENTS Last administered on 12/25/17at 17:52; Start 11/04/17 at 12:30 Glucagon (Glucagon Inj) 1 mg UNSCH PRN OTHER HYPOGLYCEMIA-SEE COMMENTS; Start 11/04/17 at 12:30 Insulin Human Regular (NovoLIN R SUPPLEMENTAL SCALE) 1 Q6H SQ Last administered on 12/27/17at 06:51; Start 11/04/17 at 12:30 Dextrose (D50w (Vial) Inj) 25 ml ONCE ONCE IV PUSH Last administered on at 12:54; Start 11/04/17 at 12:30; Stop 11/04/17 at 12:35; Status DC Metoclopramide HCl (Reglan Inj) 10 mg Q8HR IV PUSH Last administered on at 05:41; Start 11/05/17 at 22:00; Stop 11/07/17 at 13:32; Status DC Amoxicillin/ Clavulanate Potassium (Augmentin 600 Mg/5 ml Liq) 600 mg Q12H PO Last administered on 11/13/17at 23:56; Start 11/07/17 at 12:00; Stop 11/14/17 at 11:59; Status DC Metoclopramide HCl (Reglan Liq) 10 mg Q8HR PO Last administered on 11/18/17at 14:08; Start 11/07/17 at 14:30; Stop 12/24/17 at 21:05; Status DC Albuterol/ Ipratropium (Duoneb Neb) 1 ampule Q6HR NEB NEB Last administered on 11/12/17at 09:08; Start 11/08/17 at 10:30; Stop 11/12/17 at 10:29; Status DC Cholestyramine Resin (Questran Light Pkt) 4 gm BID PRN PEG DIARRHEA Last administered on 12/19/17 09:47; Start 11/12/17 at 13:30; Stop 12/24/17 at 21:03 ; Status DC Furosemide (Lasix Inj) 20 mg BID@09,18 IV PUSH Last administered on 11/14/17at 08:32; Start 11/13/17 at 17:00; Stop 11/14/17 at 14:49; Status DC Furosemide (Lasix Inj) 20 mg DAILY IV PUSH Last administered on 11/15/17 09:00 ; Start 11/15/17 at 09:00; Stop 11/16/17 at 08:59; Status DC Sodium Chloride (NS Flush) 2 ml BID IV FLUSH ; Start 11/16/17 at 10:45; Status Cancel Sodium Chloride (NS Flush) 2 ml BID IV FLUSH Last administered on 11/21/17at 09: 00; Start 11/16/17 at 21:00; Stop 11/21/17 at 20:44; Status DC Albuterol Sulfate (Proventil) 2 mg ONCE ONCE PO Last administered on 17:16; Start 11/18/17 at 15:30; Stop 11/18/17 at 15:31; Status DC Sodium Chloride 250 ml @ 250 mls/hr BOLUS ONCE IV Last administered on at 15:26; Start 11/18/17 at 14:30; Stop 11/18/17 at 15:29; Status DC Insulin Human Regular (NovoLIN R INJ) 10 units ONCE ONCE SQ Last administered on 11/18/17 18:23; Start 11/18/17 at 18:00; Stop 11/18/17 at 18:18; Status DC Dextrose (D50w (Syr) Inj) 12.5 ml ONCE ONCE IV PUSH Last administered on 18:22; Start 11/18/17 at 18:00; Stop 11/18/17 at 18:18; Status DC Furosemide (Lasix) 20 mg DAILY PO Last administered on 12/03/17at 10:34; Start at 09:00; Stop 12/03/17 at 17:03; Status DC Lisinopril (Prinivil) 5 mg ONCE ONCE PEG Last administered on 11/22/17at 17:56 ; Start 11/22/17 at 17:45; Stop 11/22/17 at 17:49; Status DC Lisinopril (Prinivil) 5 mg DAILY PEG Last administered on 12/26/17at 11:00; Start 11/23/17 at 09:00 Diphenoxylate HCl/ Atropine (Lomotil 2.5-0.025 Mg Liq) 5 ml Q6H PRN PO LOOSE STOOLS Last administered on 12/25/17at 00:40; Start 11/25/17 at 13:15 Insulin Detemir (Levemir Inj) 12 units Q12H SQ Last administered on 12/25/17at 12:16; Start 12/03/17 at 00:00; Stop 12/26/17 at 17:01; Status DC Furosemide (Lasix) 40 mg DAILY PO Last administered on 12/25/17at 08:27; Start 12/04/17 at 09:00; Stop 12/25/17 at 21:34; Status DC Povidone Iodine (Betadine 10% Top Soln) 1 applic Q12HR EXTERNAL Last administered on 12/19/17at 12:21; Start 12/06/17 at 10:00; Stop 12/19/17 at 19:16 ; Status DC Ondansetron HCl (Zofran Inj) 4 mg Q6HR PRN IV PUSH NAUSEA OR VOMITING Last administered on 12/26/17at 20:52; Start 12/08/17 at 05:00 Water (Free Water) VOLUME OF WATER: ( 250 ) ML Q6HR PEG ; Start 12/13/17 at 18: 00; Stop 12/13/17 at 18:00; Status DC Water (Free Water) 250 ml Q6HR PO Last administered on 12/26/17at 17:29; Start 12/13/17 at 18:00 Artificial Tears (Tears Naturale Opth Soln) 1 drop Q8H PRN EACH EYE DRY EYES; Start 12/19/17 at 19:30 Piperacillin Sod/ Tazobactam Sod 100 ml @ 200 mls/hr Q6H IV Last administered on 12/27/17at 05:18; Start 12/20/17 at 17:00; Stop 12/27/17 at 23:00 Levofloxacin/ Dextrose 150 ml @ 100 mls/hr Q24H IV Last administered on at 18:17; Start 12/20/17 at 16:00; Stop 12/21/17 at 12:33; Status DC Sodium Chloride 1,000 ml @ 70 mls/hr [id number] IV Last administered on at 08:54; Start 12/20/17 at 18:00; Stop 12/21/17 at 14:34; Status DC Bacitracin (Baciguent Oint) 1 applic Q12HR TOPICAL Last administered on at 21:30; Start 12/21/17 at 10:00; Stop 12/27/17 at 08:11; Status DC Levofloxacin (Levaquin) 750 mg Q24H PO Last administered on 12/23/17at 16:13; Start 12/21/17 at 18:00; Stop 12/24/17 at 08:04; Status DC Linezolid (Zyvox) 600 mg Q12HR PO Last administered on 12/26/17at 20:45; Start 12/21/17 at 21:00 Furosemide (Lasix Inj) 20 mg ONCE ONCE IV PUSH Last administered on 12/21/17at 14:57; Start 12/21/17 at 14:45; Stop 12/21/17 at 14:46; Status DC Diphenoxylate HCl/ Atropine (Lomotil 2.5-0.025 Mg Liq) 5 ml Q6H PRN PO DIARRHEA ; Start 12/22/17 at 08:30 Colistin Sulfate (Coly-Mycin M Neb) 75 mg Q8HR NEB NEB Last administered on at 07:20; Start 12/24/17 at 10:00; Stop 12/31/17 at 09:59 Cholestyramine Resin (Questran Light Pkt) 4 gm BID PEG Last administered on at 22:14; Start 12/25/17 at 09:00 Calcium Polycarbophil (Fiber Con) 625 mg Q12HR PO Last administered on at 20:45; Start 12/24/17 at 21:15 Furosemide (Lasix Inj) 40 mg BID@,18 IV PUSH Last administered on 12/26/17at 10:54; Start 12/26/17 at 09:00; Stop 12/26/17 at 17:01; Status DC Furosemide (Lasix Inj) 40 mg ONCE ONCE IV PUSH Last administered on 12/25/17at 22:09; Start 12/25/17 at 21:45; Stop 12/25/17 at 21:46; Status DC Insulin Detemir (Levemir Inj) 8 units Q12H SQ Last administered on 12/26/17at 23 :43; Start 12/27/17 at 00:00 Furosemide (Lasix) 40 mg BID@ PO Last administered on 12/26/17at 18:00; Start 12/26/17 at 18:00 Bacitracin (Baciguent Oint) 1 applic Q12HR PRN TOPICAL IRRITATION/DRAINAGE; Start 12/27/17 at 08:15 A/P Problem List: (1) Acute ischemic left middle cerebral artery (MCA) stroke ICD Code: I63.512 - Cerebral infarction due to unspecified occlusion or stenosis of left middle cerebral artery Status: Acute (2) Acute respiratory failure ICD Code: J96.00 - Acute respiratory failure, unspecified whether with hypoxia or hypercapnia (3) Right hemiplegia ICD Code: G81.91 - Hemiplegia, unspecified affecting right dominant side Status: Acute (4) Sacral decubitus ulcer ICD Code: L89.159 - Pressure ulcer of sacral region, unspecified stage Status: Chronic (5) HCAP (healthcare-associated pneumonia) ICD Code: J18.9 - Pneumonia, unspecified organism Status: Acute (6) 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 ICD Code: A49.8 - Other bacterial infections of unspecified site; Z16.24 - Resistance to multiple antibiotics Status: Acute (7) CVA (cerebral vascular accident) ICD Code: I63.9 - Cerebral infarction, unspecified Status: Chronic (8) Chronic respiratory failure ICD Code: J96.10 - Chronic respiratory failure, unspecified whether with hypoxia or hypercapnia Status: Chronic Assessment and Plan 77-year-old female [id number] female with: New sepsis with pseudomonas pneumonia- on Zosyn total 7 days ID notes 12/24/17 reviewed Right pleural effusion with requirement of bipap on 12/20/17 thought to be secondary to aspiration pneumonia as well will need to watch for possible empyema- requiring thoracocentesis however, question whether this is truly just from pneumonia- as xray is reading improvement/ worsening within days between 12/20 to now possible this is secondary to pulmonary edema/ fluid overload pt with EF 25% and diastolic heart failure Continue Lasix orally twice a day, repeat chest x-ray in the next few days, if no improvement, will do ultrasound-guided thoracentesis for parapneumonic effusions. Check BMP tomorrow. Hypoglycemia-tube feeds were held temporarily, now back, decrease Levemir to 8 units twice a day. Hematuria?-Dark-colored urine, send urine for urinalysis. DKA and hip fracture on 04/20/17. s/p ORIF on 04/21/17 LEFT MCA infarct- stroke alert on 04/24 5.5 mm of [id number] subfalcine herniation, diagnosed 04/24. Not a candidate for thrombolysis at that time. Increasing edema seen on repeat CT 04/28 with a reduction in midline shift on another repeat on 04/30 trach 05/15/17 and PEG 05/16/17 Hypertension CHF. Echo on October 06, 2017. EF 25-30%. Chronic tracheostomy/respiratory failure on October 22, 2017 On trach. Still requiring supplementary oxygen. Nebs when necessary. Pulmonary following. Elevated D-dimer Ordered 10/31 for increasing FiO2 demand CT pulmonary angiogram negative for acute pulmonary embolism. Likely from chronic illness. Right upper extremity significantly bigger than the left. Ultrasound studies did not reveal any DVT. Elevate right upper extremity. History of Large left pneumothorax Resolved Chest tube placed 05/07, discontinued 05/12/17 Hepatitis C Negative genotype/viral load Diabetes mellitus SSI Novolin R High-dose scale Levemir insulin 8u Q12. FEN PEG tube feeding with Glucerna 1.5 goal 45 cc/hr, per nutrition rec 10/20/17. aggressive PT Hypokalemia will place on scheduled doses of potassium replaced Discharge Planning Aggressive therapy, full code per palliative. Needs placement Discharge Planning Aggressive therapy, full code per palliative. Needs placement Problem Qualifiers (1) Acute respiratory failure: Qualified Codes: J96.00 - Acute respiratory failure, unspecified whether with hypoxia or hypercapnia (2) Sacral decubitus ulcer: Qualified Codes: L89.152 - Pressure ulcer of sacral region, stage 2 (3) Chronic respiratory failure: Qualified Codes: J96.11 - Chronic respiratory failure with hypoxia Ricardo Shafer DO Dec 27, 2017 10:22
[2017-12-27] MEDS: INSULIN DETEMIR 100 UNITS/ML VIAL SQ SCH (12:50)
--- NOTE | 2017-12-27 16:54 | HHI.PR ---
Subjective Remarks No events overnight. Patient is on TP's with 40% FIO2. . Tolerating tube feeds. Tolerates TF to goal rate No fever Moderate amount of thick mucous Tolerates well. Has diarrhoea more awake On fi02 50% Objective Vital Signs Vital Signs Date Time Temp Pulse Resp B/P (MAP) Pulse Ox O2 Delivery O2 Flow Rate FiO2 12/27/17 13:51 20 12/27/17 12:00 100.0 74 20 137/67 (90) 98 12/27/17 08:00 99.9 85 22 126/67 (86) 98 12/27/17 08:00 97 T-Piece 10.00 50 12/27/17 07:29 98 T-piece 10.00 40 12/27/17 03:40 97.6 74 20 120/53 (75) 96 12/27/17 00:11 98.0 75 20 134/68 (90) 96 12/26/17 20:04 95 T-piece 40 12/26/17 20:00 Trach Collar 5.00 12/26/17 19:38 98.6 71 20 137/69 (91) 98 I/O 12/26/17 12/26/17 12/26/17 12/27/17 12/27/17 12/27/17 07:00 15:00 23:00 07:00 15:00 23:00 Intake Total 978 ml 1240 ml 1340 ml Output Total 375 ml 0 ml 450.0 ml 650 ml 0 ml Balance 603 ml 0 ml 790.0 ml 690 ml 0 ml Tube Feeding 478 ml 540 ml 540 ml Other 500 ml 700 ml 800 ml Output Urine Total 375 ml 450 ml 650 ml Tube Feeding Residual Discard 0 ml 0 ml 0 ml # Bowel Movements 1 1 4 Result Diagram: 12/25/17 0736 12/27/17 0833 Objective Remarks GENERAL: Elderly female,NAD SKIN: Warm and dry. HEAD: Normocephalic. EYES: No scleral icterus. No injection or drainage. NECK: Supple, trachea midline. No JVD or lymphadenopathy. + trach CARDIOVASCULAR: Regular rate and rhythm without murmurs, gallops, or rubs. RESPIRATORY: Breath sounds equal bilaterally. No accessory muscle use. GASTROINTESTINAL: Abdomen soft, non-tender, nondistended. MUSCULOSKELETAL: No cyanosis, or edema. BACK: Nontender without obvious deformity. No CVA tenderness. A/P Assessment and Plan Chronic resp failure, ,S/P Trach CVA Pneumonia Calcified Granuloma LLL Pseudomonas Tracheobronchitis, PLAN: Continue with TP's, keep sats >92% Bronchodilators, Pulm toilet, trach care Cont TF GI/DVT prophylaxis DW RN at [facility],Chris Hester MD Dec 27, 2017 16:54
[2017-12-27] MEDS: DIPHENOXYLATE/ATROPINE 2.5 MG/0.025 MG/5 ML CUP PO PRN (19:30)
[2017-12-28] VITALS (9 sets, daily range): BP systolic 121–140; BP diastolic 60–73; PULSE 73–83; RESP 20–22; TEMP 98.7–99.9; O2SAT 91–100
[2017-12-28] MEDS: INSULIN DETEMIR 100 UNITS/ML VIAL SQ SCH ×2 (00:50→13:28)
[2017-12-28] MEDS: ONDANSETRON HCL 4 MG/2 ML VIAL IV PUSH PRN ×2 (05:01→10:02)
[2017-12-28] MEDS: HEPARIN SODIUM - SQ 10,000 UNITS/ML VIAL SQ SCH ×3 (05:02→21:18)
[2017-12-28] MEDS: oxyCODONE HCL ORAL CONC 5 MG/0.25 ML SYRINGE PO PRN ×2 (05:02→10:05)
[2017-12-28] MEDS: FREE WATER PO SCH ×3 (05:02→17:41)
[2017-12-28] MEDS: DIPHENOXYLATE/ATROPINE 2.5 MG/0.025 MG/5 ML CUP PO PRN ×3 (05:02→19:47)
[2017-12-28] MEDS: hydrALAZINE HCL 10 MG TAB PEG SCH ×3 (05:02→21:18)
[2017-12-28 06:02] LABS: MAGNESIUM 2.1 MG/DL (1.5-2.5); PHOSPHORUS 1.8 MG/DL (2.5-4.9)
[2017-12-28] MEDS: INSULIN NovoLIN REGULAR SUPPLEMENTAL SCALE SQ SCH ×3 (07:18→18:30)
[2017-12-28] MEDS: RESP: COLISTIN 150 MG VIAL NEB SCH ×3 (08:01→23:30)
--- NOTE | 2017-12-28 08:49 | HHI.PR ---
Subjective Remarks Patient seen and examined this morning. Afebrile vital signs stable. T piece in place. She is currently nonverbal. Case discussed with nurse. Objective Vitals Vital Signs Date Time Temp Pulse Resp B/P (MAP) Pulse Ox O2 Delivery O2 Flow Rate FiO2 12/28/17 08:02 99 T-piece 10.00 60 12/28/17 06:02 20 12/28/17 03:06 99.2 73 20 124/60 (81) 98 12/28/17 00:10 99 T-piece 10.00 60 12/27/17 23:28 98.5 75 20 125/63 (83) 99 12/27/17 21:35 94 T-piece 40 12/27/17 21:30 89 T-Piece 10.00 60 12/27/17 21:00 93 T-Piece 10.00 40 12/27/17 19:37 98 T-Piece 10.00 60 12/27/17 19:37 97.2 77 20 142/83 (102) 98 12/27/17 16:00 100.4 73 22 144/78 (100) 93 12/27/17 12:00 100.0 74 20 137/67 (90) 98 I/O 12/27/17 12/27/17 12/27/17 12/28/17 12/28/17 12/28/17 07:00 15:00 23:00 07:00 15:00 23:00 Intake Total 1440 ml 100 ml 1440 ml 100 ml 1340 ml Output Total 650 ml 0 ml 500.0 ml 600 ml Balance 790 ml 100 ml 940.0 ml 100 ml 740 ml IV Total 100 ml 100 ml 100 ml 100 ml Tube Feeding 540 ml 540 ml 540 ml Other 800 ml 800 ml 800 ml Output Urine Total 650 ml 500 ml 600 ml Tube Feeding Residual Discard 0 ml 0 ml # Voids 1 # Bowel Movements 4 4 2 Result Diagram: 12/25/17 0736 12/27/17 0833 Imaging Last Impressions Chest X-Ray 12/24/17 0000 Signed Impressions: Service Date/Time: Sunday, December 24, 2017 21:25 - CONCLUSION: Worsening bibasilar consolidation and right pleural effusion. Obdulio Simms MD Upper Extremity Ultrasound 11/04/17 0000 Signed Impressions: Service Date/Time: Saturday, November 04, 2017 09:57 - CONCLUSION: No thrombus observed. Subcutaneous edema noted. Deangelo Wren Jr., MD Abdomen X-Ray 11/04/17 0000 Signed Impressions: Service Date/Time: Saturday, November 04, 2017 11:58 - CONCLUSION: Gaseous distention of bowel loops could be ileus but unchanged. Benja Ramsey MD CT Angiography 11/01/17 0000 Signed Impressions: Service Date/Time: Wednesday, November 01, 2017 16:47 - CONCLUSION: No evidence for pulmonary embolism. Please see above. Choco Mustafa MD Thoracentesis 08/05/17 1535 Signed Impressions: Service Date/Time: Saturday, August 05, 2017 16:08 - CONCLUSION: Uncomplicated CT-guided thoracentesis. Sage Adler MD Chest Ultrasound 08/02/17 0000 Signed Impressions: Service Date/Time: Tuesday, August 01, 2017 22:06 - CONCLUSION: 1. Moderate right pleural effusion, as above. Alejo De La Vega MD Hip and Pelvis X-Ray 07/09/17 0000 Signed Impressions: Service Date/Time: Sunday, July 09, 2017 14:04 - CONCLUSION: Anatomic alignment. Ricardo Middleton MD FACR Liver Ultrasound 06/19/17 0000 Signed Impressions: Service Date/Time: June 13:20 - CONCLUSION: 1. Mildly increased echotexture of the liver characteristic of hepatic steatosis. 2. Gallbladder sludge. Obdulio Sam MD Head CT 05/15/17 0000 Signed Impressions: Service Date/Time: May 19:59 - CONCLUSION: 1. 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 2. No bleed or new/acute infarct. Obdulio Simms MD Gall Bladder Ultrasound 05/08/17 0000 Signed Impressions: Service Date/Time: May 08:23 - CONCLUSION: Focally unremarkable appearance of the gallbladder Obdulio Chun MD Abdomen/Pelvis CT 05/07/17 0000 Signed Impressions: Service Date/Time: Sunday, May 07, 2017 13:23 - CONCLUSION: 1. Large left pneumothorax. 2. Bilateral lower lobe consolidation and bilateral moderate size pleural effusions. 3. Significant soft tissue thickening of the right lateral chest wall and left gluteus muscle. 4. Mild ascites. The findings were called to Dr. Carney. Deangelo Zamora MD Chest CT 04/30/17 0000 Signed Impressions: Service Date/Time: Sunday, April 30, 2017 09:20 - CONCLUSION: 1. Bilateral pulmonary infiltrates more pronounced within the lower lobes with tiny bilateral pleural effusions. Material seen filling the lower lobe bronchi bilaterally either related to purulent material or perhaps mucus plugging. Deangelo Wren Jr., MD Carotid Artery Ultrasound 04/24/17 0000 Signed Impressions: Service Date/Time: April 09:45 - CONCLUSION: 1. No hemodynamically significant carotid artery stenosis. Arnie Middleton MD Hip X-Ray 04/21/17 0000 Signed Impressions: Service Date/Time: Friday, April 21, 2017 11:36 - CONCLUSION: Fluoroscopic images during placement of intramedullary siomara left femur. Benja Ramsey MD Objective Remarks GENERAL: Elderly female patient in NAD. Appears comfortable. Nonverbal. Noninteractive. SKIN: Warm and dry. Bilateral first medial MCP ulcers. HEAD: Normocephalic. EYES: No scleral icterus. No injection or drainage. ENT: No nasal bleeding or discharge. Mucous membranes pink and moist. NECK: Trachea midline. CARDIOVASCULAR: Regular rate and rhythm. S1, S2 noted. No murmur appreciated. RESPIRATORY: No accessory muscle use. Breath sounds equal bilaterally. GASTROINTESTINAL: Abdomen soft, non-tender, nondistended. Normoactive bowel sounds x4. PEG tube site C/D/I. MUSCULOSKELETAL: Extremities without clubbing, cyanosis, or edema. NEUROLOGICAL: Nonverbal. Does not follow commands. Procedures PEG tube trach 05/15/17 and PEG 05/16/17 Medications and IVs Current Medications Medications (Trade) Dose Ordered Sig/Zeferino Route Start Time Stop Time Status Last Admin (Narcan Inj) 0.4 mg UNSCH PRN IV 04/20/17 17:15 (Aspirin) 325 mg DAILY DOBHOFF 04/27/17 09:00 12/27/17 10:18 (Prevacid Odt) 30 mg DAILY NG 05/08/17 09:00 12/27/17 10:18 (Nitroglycerin 2% Oint) 2 inch Q6H PRN TOPICAL 06/21/17 08:00 06/30/17 14:37 (Heparin Inj) 5,000 units Q8HR SQ 07/15/17 08:00 12/28/17 05:02 (Pill Splitter) 1 ea UNSCH PRN OTHER 09/05/17 11:00 (Apresoline) 10 mg Q8HR PEG 09/24/17 14:00 12/28/17 05:02 (Norvasc) 10 mg DAILY PEG 10/04/17 09:00 12/27/17 10:18 (Oscal-D 250-125) 250 mg TID PEG 10/03/17 13:00 12/27/17 19:29 (Vitamin D3) 5,000 units DAILY PEG 10/04/17 09:00 12/27/17 10:17 (Catapres) 0.1 mg Q6H PRN PEG 10/03/17 12:30 11/27/17 00:23 (Lactinex) 1 tab Q12HR PEG 10/03/17 21:00 12/27/17 20:24 (Miralax) 17 gm DAILY PRN PEG 10/03/17 12:00 (Beneprotein Powder) 1 pack TID PRN G-TUBE 10/03/17 12:00 (Albuterol Neb) 2.5 mg Q2HR NEB PRN NEB 10/03/17 21:45 12/24/17 16:19 (Tylenol 650 Mg/ 20 ml Liq) 650 mg Q6H PRN PEG 10/26/17 06:45 12/15/17 05:51 (Roxicodone Intensol Liq) 5 mg Q6H PRN PO 10/29/17 11:00 12/28/17 05:02 (D50w (Vial) Inj) 50 ml UNSCH PRN IV PUSH 11/04/17 12:30 12/25/17 17:52 (Glucagon Inj) 1 mg UNSCH PRN OTHER 11/04/17 12:30 (NovoLIN R SUPPLEMENTAL SCALE) 1 Q6H SQ 11/04/17 12:30 12/28/17 07:18 (Prinivil) 5 mg DAILY PEG 11/23/17 09:00 12/27/17 10:19 (Lomotil 2.5-0.025 Mg Liq) 5 ml Q6H PRN PO 11/25/17 13:15 12/28/17 05:02 (Zofran Inj) 4 mg Q6HR PRN IV PUSH 12/08/17 05:00 12/28/17 05:01 (Free Water) 250 ml Q6HR PO 12/13/17 18:00 12/27/17 17:52 (Tears Naturale Opth Soln) 1 drop Q8H PRN EACH EYE 12/19/17 19:30 (Zyvox) 600 mg Q12HR PO 12/21/17 21:00 12/27/17 20:24 (Lomotil 2.5-0.025 Mg Liq) 5 ml Q6H PRN PO 12/22/17 08:30 (Coly-Mycin M Neb) 75 mg Q8HR NEB NEB 12/24/17 10:00 12/31/17 09:59 12/28/17 08:01 (Questran Light Pkt) 4 gm BID PEG 12/25/17 09:00 12/27/17 20:24 (Fiber Con) 625 mg Q12HR PO 12/24/17 21:15 12/27/17 20:24 (Levemir Inj) 8 units Q12H SQ 12/27/17 00:00 12/28/17 00:50 (Lasix) 40 mg BID@ PO 12/26/17 18:00 12/27/17 19:30 (Baciguent Oint) 1 applic Q12HR PRN TOPICAL 12/27/17 08:15 (K-Lyte Cl Eff) 25 meq DAILY PEG 12/28/17 09:00 A/P Problem List: (1) Acute ischemic left middle cerebral artery (MCA) stroke ICD Code: I63.512 - Cerebral infarction due to unspecified occlusion or stenosis of left middle cerebral artery Status: Acute (2) Acute respiratory failure ICD Code: J96.00 - Acute respiratory failure, unspecified whether with hypoxia or hypercapnia (3) Right hemiplegia ICD Code: G81.91 - Hemiplegia, unspecified affecting right dominant side Status: Acute (4) Sacral decubitus ulcer ICD Code: L89.159 - Pressure ulcer of sacral region, unspecified stage Status: Chronic (5) HCAP (healthcare-associated pneumonia) ICD Code: J18.9 - Pneumonia, unspecified organism Status: Acute (6) 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 She underwent ORIF on 04/21/17 and on 04/24 a stroke alert was called as she was found to have right hemiparesis with left gaze. She has a poor prognosis based on her lack of overall recovery over the last 6+ months. New sepsis with pseudomonas pneumonia- on Zosyn total 7 days ID notes 12/24/17 reviewed Infectious disease consulted, regulations appreciated Right pleural effusion with requirement of bipap on 12/20/17 thought to be secondary to aspiration pneumonia as well will need to watch for possible empyema- requiring thoracocentesis however, question whether this is truly just from pneumonia- as xray is reading improvement/ worsening within days between 12/20 to now possible this is secondary to pulmonary edema/ fluid overload pt with EF 25% and diastolic heart failure Continue Lasix orally twice a day, repeat chest x-ray in the next few days, if no improvement, will do ultrasound-guided thoracentesis for parapneumonic effusions. Check BMP tomorrow. Hypoglycemia-tube feeds were held temporarily, now back, decrease Levemir to 8 units twice a day. DKA and hip fracture on 04/20/17. s/p ORIF on 04/21/17 LEFT MCA infarct- stroke alert on 04/24 5.5 mm of [id number] subfalcine herniation, diagnosed 04/24. Not a candidate for thrombolysis at that time. Increasing edema seen on repeat CT 04/28 with a reduction in midline shift on another repeat on 04/30 trach 05/15/17 and PEG 05/16/17 Hypertension-continue hypertensive medications CHF. Echo on October 06, 2017. EF 25-30%. Chronic tracheostomy/respiratory failure on October 22, 2017 On trach. Still requiring supplementary oxygen. Nebs when necessary. Pulmonary following. History of Large left pneumothorax Resolved Chest tube placed 05/07, discontinued 05/12/17 Hepatitis C Negative genotype/viral load Diabetes mellitus SSI Novolin R High-dose scale Levemir insulin 8u Q12. FEN PEG tube feeding with Glucerna 1.5 goal 45 cc/hr, per nutrition rec 10/20/17. aggressive PT Hypokalemia will place on scheduled doses of potassium replaced Discharge Planning Aggressive therapy, full code per palliative. Needs placement Discharge Planning Continue aggressive therapy will need placement Problem Qualifiers (1) Acute respiratory failure: Qualified Codes: J96.00 - Acute respiratory failure, unspecified whether with hypoxia or hypercapnia (2) Sacral decubitus ulcer: Qualified Codes: L89.152 - Pressure ulcer of sacral region, stage 2 (3) Chronic respiratory failure: Qualified Codes: J96.11 - Chronic respiratory failure with hypoxia Idris Diaz MD R3 Dec 28, 2017 08:49
[2017-12-28] MEDS: CALCIUM/VITAMIN D 250 MG/125 U TAB PEG SCH ×3 (10:01→19:41)
[2017-12-28] MEDS: CHOLESTYRAMINE LIGHT 4 GM PACKAGE PEG SCH ×2 (10:01→21:18)
[2017-12-28] MEDS: CALCIUM POLYCARBOPHIL 625 MG TAB PO SCH ×2 (10:02→21:18)
[2017-12-28] MEDS: LACTOBACILLUS ACIDOPHILUS TAB PEG SCH ×2 (10:02→21:18)
[2017-12-28] MEDS: CHOLECALCIFEROL (VIT D3) 5000 UNIT CAP PEG SCH (10:02)
[2017-12-28] MEDS: POTASSIUM CHLORIDE 25 MEQ EFFERVESCENT TAB PEG SCH (10:03)
[2017-12-28] MEDS: LANSOPRAZOLE SOLUTAB 30 MG TAB NG SCH (10:03)
[2017-12-28] MEDS: ASPIRIN 325 MG TAB DOBHOFF SCH (10:04)
[2017-12-28] MEDS: LINEZOLID 600 MG TAB PO SCH ×2 (10:04→21:18)
[2017-12-28] MEDS: LISINOPRIL 5 MG TAB PEG SCH (10:04)
[2017-12-28] MEDS: FUROSEMIDE 40 MG TAB PO SCH ×2 (10:04→19:41)
[2017-12-28] MEDS: ARTIFICIAL TEARS OPTH SOLN 15 ML BTL EACH EYE PRN (10:05)
[2017-12-28] MEDS: RESP: ALBUTEROL 2.5 MG/3 ML NEB (PRN) NEB ×2 (16:03→23:30)
--- NOTE | 2017-12-28 16:19 | HHI.PR ---
Subjective Remarks No events overnight. Patient is on TP's with 40% FIO2. . Tolerating tube feeds. Tolerates TF to goal rate No fever Moderate amount of thick mucous Tolerates well. more awake On Fi02 50% Diarrhoea little better Objective Vital Signs Vital Signs Date Time Temp Pulse Resp B/P (MAP) Pulse Ox O2 Delivery O2 Flow Rate FiO2 12/28/17 16:03 99 T-piece 6.00 40 12/28/17 11:05 20 12/28/17 08:02 99 T-piece 10.00 60 12/28/17 08:00 97 T-Piece 10.00 50 12/28/17 08:00 99.9 75 22 121/73 (89) 100 12/28/17 03:06 99.2 73 20 124/60 (81) 98 12/28/17 00:10 99 T-piece 10.00 60 12/27/17 23:28 98.5 75 20 125/63 (83) 99 12/27/17 21:35 94 T-piece 40 12/27/17 21:30 89 T-Piece 10.00 60 12/27/17 21:00 93 T-Piece 10.00 40 12/27/17 19:37 98 T-Piece 10.00 60 12/27/17 19:37 97.2 77 20 142/83 (102) 98 I/O 12/27/17 12/27/17 12/27/17 12/28/17 12/28/17 12/28/17 07:00 15:00 23:00 07:00 15:00 23:00 Intake Total 1440 ml 100 ml 1440 ml 100 ml 1340 ml Output Total 650 ml 0 ml 500.0 ml 600.0 ml Balance 790 ml 100 ml 940.0 ml 100 ml 740.0 ml IV Total 100 ml 100 ml 100 ml 100 ml Tube Feeding 540 ml 540 ml 540 ml Other 800 ml 800 ml 800 ml Output Urine Total 650 ml 500 ml 600 ml Tube Feeding Residual Discard 0 ml 0 ml 0 ml # Voids 1 # Bowel Movements 4 4 2 Result Diagram: 12/25/17 0736 12/27/17 0833 Objective Remarks GENERAL: Elderly female,NAD SKIN: Warm and dry. HEAD: Normocephalic. EYES: No scleral icterus. No injection or drainage. NECK: Supple, trachea midline. No JVD or lymphadenopathy. + trach CARDIOVASCULAR: Regular rate and rhythm without murmurs, gallops, or rubs. RESPIRATORY: Breath sounds equal bilaterally. No accessory muscle use. GASTROINTESTINAL: Abdomen soft, non-tender, nondistended. MUSCULOSKELETAL: No cyanosis, or edema. BACK: Nontender without obvious deformity. No CVA tenderness. A/P Assessment and Plan Chronic resp failure, ,S/P Trach CVA Pneumonia Calcified Granuloma LLL Pseudomonas Tracheobronchitis, PLAN: Continue with TP's, keep sats >92% Bronchodilators, Pulm toilet, trach care Cont TF GI/DVT prophylaxis [facility] RN at [facility],Chris Hester MD Dec 28, 2017 16:19
[2017-12-29] VITALS (17 sets, daily range): BP systolic 111–143; BP diastolic 55–78; PULSE 45–86; RESP 16–22; TEMP 97.7–99.2; O2SAT 88–99
[2017-12-29] MEDS: INSULIN DETEMIR 100 UNITS/ML VIAL SQ SCH ×2 (00:25→12:00)
[2017-12-29] MEDS: FREE WATER PO SCH ×4 (00:25→17:52)
[2017-12-29] MEDS: INSULIN NovoLIN REGULAR SUPPLEMENTAL SCALE SQ SCH ×4 (00:26→18:30)
[2017-12-29] MEDS: hydrALAZINE HCL 10 MG TAB PEG SCH ×3 (05:58→22:48)
[2017-12-29] MEDS: HEPARIN SODIUM - SQ 10,000 UNITS/ML VIAL SQ SCH ×3 (05:58→20:51)
[2017-12-29 08:04] LABS: AUTOMATED NEUTROPHIL # 11.9 TH/MM3 (1.8-7.7); BASOPHIL # 0.1 TH/MM3 (0-0.2); BASOPHIL % 0.7 % (0.0-2.0); EOSINOPHIL # 0.5 TH/MM3 (0-0.4); EOSINOPHIL % 3.1 % (0.0-4.0); HEMOGLOBIN 9.8 GM/DL (11.6-15.3); LYMPH % 12.7 % (9.0-44.0); LYMPHOCYTE # 1.9 TH/MM3 (1.0-4.8); MEAN CELL VOLUME 97.3 FL (80.0-100.0); MEAN CORPUSCULAR HEMOGLOBIN 32.8 PG (27.0-34.0); MEAN CORPUSCULAR HGB CONC 33.7 % (32.0-36.0); MEAN PLATELET VOLUME 7.6 FL (7.0-11.0); MONO % 4.4 % (0.0-8.0); MONOCYTE # 0.7 TH/MM3 (0-0.9); NEUT % 79.1 % (16.0-70.0); PLATELET COUNT 288 TH/MM3 (150-450); RED BLOOD COUNT 2.98 MIL/MM3 (4.00-5.30); RED CELL DISTRIBUTION WIDTH 13.5 % (11.6-17.2); WHITE BLOOD COUNT 15.1 TH/MM3 (4.0-11.0)
[2017-12-29] MEDS: CHOLESTYRAMINE LIGHT 4 GM PACKAGE PEG SCH ×2 (08:13→20:51)
[2017-12-29] MEDS: LANSOPRAZOLE SOLUTAB 30 MG TAB NG SCH (08:13)
[2017-12-29] MEDS: LISINOPRIL 5 MG TAB PEG SCH (08:13)
[2017-12-29] MEDS: ASPIRIN 325 MG TAB DOBHOFF SCH (08:14)
[2017-12-29] MEDS: CALCIUM/VITAMIN D 250 MG/125 U TAB PEG SCH ×3 (08:14→17:52)
[2017-12-29] MEDS: POTASSIUM CHLORIDE 25 MEQ EFFERVESCENT TAB PEG SCH (08:14)
[2017-12-29] MEDS: LACTOBACILLUS ACIDOPHILUS TAB PEG SCH ×2 (08:14→20:51)
[2017-12-29] MEDS: CALCIUM POLYCARBOPHIL 625 MG TAB PO SCH ×2 (08:14→20:51)
[2017-12-29] MEDS: FUROSEMIDE 40 MG TAB PO SCH ×2 (08:14→17:52)
[2017-12-29] MEDS: CHOLECALCIFEROL (VIT D3) 5000 UNIT CAP PEG SCH (08:14)
[2017-12-29 08:15] LABS: ALBUMIN 2.6 GM/DL (3.4-5.0); AST (GOT) 16 U/L (15-37); BICARBONATE 30.7 MEQ/L (21.0-32.0); BLOOD UREA NITROGEN 23 MG/DL (7-18); CALCIUM 9.7 MG/DL (8.5-10.1); CHLORIDE 98 MEQ/L (98-107); CREATININE 0.61 MG/DL (0.50-1.00); GLOMERULAR FILTRATION RATE 96 ML/MIN (>89); GLUCOSE,RANDOM 127 MG/DL (74-106); SODIUM (NA) 134 MEQ/L (136-145)
[2017-12-29] MEDS: LINEZOLID 600 MG TAB PO SCH ×2 (08:17→20:51)
[2017-12-29 08:22] LABS: ALKALINE PHOSPHATASE 159 U/L (45-117); ALT (GPT) 24 U/L (10-53); TOTAL BILIRUBIN ADULT 0.2 MG/DL (0.2-1.0); TOTAL PROTEIN 7.2 GM/DL (6.4-8.2)
[2017-12-29 09:01] LABS: BANDS 1 % (0-6); LYMPHOCYTES 11 % (9-44); METAMYELOCYTES 1 % (0-1); MONOCYTES 1 % (0-8); NEUTROPHIL # MANUAL DIFF 12.4 TH/MM3 (1.8-7.7); POLYS (SEG NEUTROPHILS) 80 % (16-70)
[2017-12-29] MEDS: RESP: COLISTIN 150 MG VIAL NEB SCH ×2 (09:34→16:00)
--- NOTE | 2017-12-29 10:31 | HHI.PR ---
Subjective Remarks No complaints today. Excess mucus. Patient unable to communicate. Objective Vital Signs Date Time Temp Pulse Resp B/P (MAP) Pulse Ox O2 Delivery O2 Flow Rate FiO2 12/29/17 09:42 92 T-piece 40 12/29/17 08:00 T-Piece 6.00 40 12/29/17 08:00 97.7 86 16 143/78 (99) 92 12/29/17 04:00 99.2 77 20 139/70 (93) 95 12/29/17 00:00 98.8 81 20 139/73 (95) 99 12/28/17 23:30 94 Trach Collar 10.00 40 12/28/17 20:00 98.7 81 20 124/64 (84) 96 12/28/17 20:00 T-Piece 10.00 50 12/28/17 16:03 99 T-piece 6.00 40 12/28/17 16:00 99.5 83 22 129/69 (89) 92 12/28/17 12:00 99.8 78 20 140/70 (93) 91 12/28/17 11:05 20 I/O 12/28/17 12/28/17 12/28/17 12/29/17 12/29/17 12/29/17 06:59 14:59 22:59 06:59 14:59 22:59 Intake Total 100 ml 1340 ml 1340 ml 1026 ml Output Total 600.0 ml 550.0 ml 975 ml Balance 100 ml 740.0 ml 790.0 ml 51 ml IV Total 100 ml Tube Feeding 540 ml 540 ml 526 ml Other 800 ml 800 ml 500 ml Output Urine Total 600 ml 550 ml 975 ml Tube Feeding Residual Discard 0 ml 0 ml # Voids 1 # Bowel Movements 2 4 1 Result Diagram: 12/29/17 0720 12/29/17 0720 Procedures Tracheostomy 05/15/17 PEG 05/16/17 Objective Remarks GENERAL: NAD, A&Ox0 HEAD: Normocephalic. NECK: Supple, trachea midline. No lymphadenopathy. Tracheostomy present. EYES: No scleral icterus. No injection or drainage. CARDIOVASCULAR: Regular rate and rhythm without murmurs, gallops, or rubs. RESPIRATORY: Breath sounds equal bilaterally. No accessory muscle use. GASTROINTESTINAL: Abdomen soft, non-tender, nondistended. MUSCULOSKELETAL: No cyanosis, or edema. SKIN: Warm and dry. NEURO: No focal neurological deficitis. A/P Problem List: (1) CVA (cerebral vascular accident) ICD Code: I63.9 - Cerebral infarction, unspecified Status: Chronic Assessment and Plan 76 y/o female with HTN, DM admitted for DKA and hip fracture s/p large CVA . No significant change. Continue suctioning as needed for tracheal secretions. No signs of acute pain. Vital signs stable. Continue tracheostomy care and follow patient clinically for signs of change. 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 No expectations for recovery Expectations are for chronic debility of motor function in cognitive status Overall poor prognosis Daily aspirin continued Sacral decubitus ulcer Continue wound care Calcium Alginate History of urinary retention Catheter as needed Follow urine output Diabetes mellitus type 2 Follow blood sugars Insulin sliding scale Diabetic diet Hypertension Follow blood pressures Continue present treatments Adjust as needed 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
--- NOTE | 2017-12-29 17:35 | HHI.PR ---
Subjective Remarks No events overnight. Patient is on TP's with 40% FIO2. . Tolerating tube feeds. Tolerates TF to goal rate No fever Moderate amount of thick mucous Tolerates well. more awake On Fi02 40% No diarrhoea Objective Vital Signs Vital Signs Date Time Temp Pulse Resp B/P (MAP) Pulse Ox O2 Delivery O2 Flow Rate FiO2 12/29/17 16:59 92 T-piece 6.00 60 12/29/17 12:00 99.0 50 16 113/56 (75) 98 12/29/17 09:42 92 T-piece 40 12/29/17 08:00 T-Piece 6.00 40 12/29/17 08:00 97.7 86 16 143/78 (99) 92 12/29/17 04:00 99.2 77 20 139/70 (93) 95 12/29/17 00:00 98.8 81 20 139/73 (95) 99 12/28/17 23:30 94 Trach Collar 10.00 40 12/28/17 20:00 98.7 81 20 124/64 (84) 96 12/28/17 20:00 T-Piece 10.00 50 I/O 12/28/17 12/28/17 12/28/17 12/29/17 12/29/17 12/29/17 07:00 15:00 23:00 07:00 15:00 23:00 Intake Total 100 ml 1340 ml 1340 ml 1026 ml Output Total 600.0 ml 550.0 ml 975 ml Balance 100 ml 740.0 ml 790.0 ml 51 ml IV Total 100 ml Tube Feeding 540 ml 540 ml 526 ml Other 800 ml 800 ml 500 ml Output Urine Total 600 ml 550 ml 975 ml Tube Feeding Residual Discard 0 ml 0 ml # Voids 1 # Bowel Movements 2 4 1 Result Diagram: 12/29/1720 12/29/17 07 Objective Remarks GENERAL: Elderly female,NAD SKIN: Warm and dry. HEAD: Normocephalic. EYES: No scleral icterus. No injection or drainage. NECK: Supple, trachea midline. No JVD or lymphadenopathy. + trach CARDIOVASCULAR: Regular rate and rhythm without murmurs, gallops, or rubs. RESPIRATORY: Breath sounds equal bilaterally. No accessory muscle use. GASTROINTESTINAL: Abdomen soft, non-tender, nondistended. MUSCULOSKELETAL: No cyanosis, or edema. BACK: Nontender without obvious deformity. No CVA tenderness. A/P Assessment and Plan Chronic resp failure, ,S/P Trach CVA Pneumonia Calcified Granuloma LLL Pseudomonas Tracheobronchitis, PLAN: Continue with TP's, keep sats >92% Bronchodilators, Pulm toilet, trach care Cont TF GI/DVT prophylaxis [facility]I RN at [facility],Chris Hester MD Dec 29, 2017 17:35
[2017-12-29] MEDS: RESP: ALBUTEROL 2.5 MG/3 ML NEB (PRN) NEB (21:41)
[2017-12-30] VITALS (8 sets, daily range): BP systolic 113–142; BP diastolic 53–71; PULSE 42–78; RESP 20–22; TEMP 98–99.3; O2SAT 91–97
[2017-12-30] MEDS: FREE WATER PO SCH ×4 (00:13→17:16)
[2017-12-30] MEDS: INSULIN DETEMIR 100 UNITS/ML VIAL SQ SCH ×2 (00:19→13:00)
[2017-12-30] MEDS: INSULIN NovoLIN REGULAR SUPPLEMENTAL SCALE SQ SCH ×4 (00:19→17:57)
[2017-12-30] MEDS: RESP: ALBUTEROL 2.5 MG/3 ML NEB (PRN) NEB ×4 (00:57→18:19)
[2017-12-30] MEDS: RESP: COLISTIN 150 MG VIAL NEB SCH ×3 (01:07→16:27)
[2017-12-30] MEDS: hydrALAZINE HCL 10 MG TAB PEG SCH ×3 (05:50→21:33)
[2017-12-30] MEDS: HEPARIN SODIUM - SQ 10,000 UNITS/ML VIAL SQ SCH ×3 (05:54→21:33)
[2017-12-30] MEDS: FUROSEMIDE 40 MG TAB PO SCH ×2 (08:30→17:57)
[2017-12-30] MEDS: CHOLECALCIFEROL (VIT D3) 5000 UNIT CAP PEG SCH (08:30)
[2017-12-30] MEDS: LANSOPRAZOLE SOLUTAB 30 MG TAB NG SCH (08:30)
[2017-12-30] MEDS: LACTOBACILLUS ACIDOPHILUS TAB PEG SCH ×2 (08:30→21:33)
[2017-12-30] MEDS: CALCIUM POLYCARBOPHIL 625 MG TAB PO SCH ×2 (08:31→21:33)
[2017-12-30] MEDS: LISINOPRIL 5 MG TAB PEG SCH (08:31)
[2017-12-30] MEDS: POTASSIUM CHLORIDE 25 MEQ EFFERVESCENT TAB PEG SCH (08:31)
[2017-12-30] MEDS: CALCIUM/VITAMIN D 250 MG/125 U TAB PEG SCH ×4 (08:31→17:57)
[2017-12-30] MEDS: ASPIRIN 325 MG TAB DOBHOFF SCH (08:32)
[2017-12-30] MEDS: CHOLESTYRAMINE LIGHT 4 GM PACKAGE PEG SCH ×2 (08:32→21:33)
[2017-12-30] MEDS: LINEZOLID 600 MG TAB PO SCH ×2 (08:32→21:33)
--- NOTE | 2017-12-30 10:23 | HHI.PR ---
Subjective Remarks Patient resting comfortably today. She is unable to provide history chronically. No acute complaints. Objective Vital Signs Date Time Temp Pulse Resp B/P (MAP) Pulse Ox O2 Delivery O2 Flow Rate FiO2 12/30/17 08:35 95 T-piece 60 12/30/17 04:00 99.3 49 20 113/53 (73) 94 12/30/17 00:00 98.4 45 20 119/58 (78) 97 12/29/17 22:47 49 22 120/55 (76) 97 12/29/17 22:30 97 12/29/17 22:15 94 12/29/17 22:00 97 12/29/17 21:49 93 T-piece 10.00 60 12/29/17 21:45 91 12/29/17 21:30 88 12/29/17 21:15 90 12/29/17 20:45 93 12/29/17 20:00 98.9 46 20 111/55 (73) 95 12/29/17 20:00 T-Piece 10.00 60 12/29/17 16:59 92 T-piece 6.00 60 12/29/17 16:00 98.1 45 16 138/60 (86) 91 12/29/17 12:00 99.0 50 16 113/56 (75) 98 I/O 12/29/17 12/29/17 12/29/17 12/30/17 12/30/17 12/30/17 06:59 14:59 22:59 06:59 14:59 22:59 Intake Total 1026 ml 1040 ml 995 ml Output Total 975 ml 500.0 ml 750 ml Balance 51 ml 540.0 ml 245 ml Tube Feeding 526 ml 540 ml 495 ml Other 500 ml 500 ml 500 ml Output Urine Total 975 ml 500 ml 750 ml Tube Feeding Residual Discard 0 ml # Bowel Movements 1 1 Result Diagram: 12/29/17 0720 12/29/17 0720 Procedures Tracheostomy 05/15/17 PEG 05/16/17 Objective Remarks GENERAL: NAD, A&Ox0 HEAD: Normocephalic. NECK: Supple, trachea midline. No lymphadenopathy. Tracheostomy present. EYES: No scleral icterus. No injection or drainage. CARDIOVASCULAR: Regular rate and rhythm without murmurs, gallops, or rubs. RESPIRATORY: Breath sounds equal bilaterally. No accessory muscle use. GASTROINTESTINAL: Abdomen soft, non-tender, nondistended. MUSCULOSKELETAL: No cyanosis, or edema. SKIN: Warm and dry. NEURO: No focal neurological deficitis. A/P Problem List: (1) CVA (cerebral vascular accident) ICD Code: I63.9 - Cerebral infarction, unspecified Status: Chronic Assessment and Plan 76 y/o female with HTN, DM admitted for DKA and hip fracture s/p large CVA . No significant change. Doing well today, unchanged from yesterday. No signs of acute pain. Vital signs stable. Continue tracheostomy care and follow patient clinically for signs of change. 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 No expectations for recovery Expectations are for chronic debility of motor function in cognitive status Overall poor prognosis Daily aspirin continued Sacral decubitus ulcer Continue wound care Calcium Alginate History of urinary retention Catheter as needed Follow urine output Diabetes mellitus type 2 Follow blood sugars Insulin sliding scale Diabetic diet Hypertension Follow blood pressures Continue present treatments Adjust as needed 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
[2017-12-30] MEDS: RESP: ALBUTEROL 2.5 MG/IPRATROPIUM 0.5 MG NEB (SCH) NEB ×2 (13:38→20:46)
--- NOTE | 2017-12-30 14:25 | RADRPT ---
EXAM DATE/TIME: 12/30/2017 13:24 [facility] COMPARISON: CHEST SINGLE AP, December 24, 2017, 21:25. INDICATIONS : Dyspnea. MEDICAL HISTORY : Stroke. Hypertension Diabetes mellitus type II. SURGICAL HISTORY : None. ENCOUNTER: Initial ACUITY: 1 week PAIN SCORE: Non-responsive. LOCATION: Bilateral chest FINDINGS: Portable AP view of the chest demonstrates a normal-sized cardiac silhouette with calcification of th e aorta. Tracheostomy overlies the tracheal air shadow. There is a small right basilar pleural-parenc hymal opacity and there is diffuse consolidation throughout both lungs, right greater than left and s lightly increased from the prior study. No pneumothorax is present. Bones demonstrate no acute findin g. CONCLUSION: 1. Stable small right pleural effusion. 2. Bilateral mild diffuse airspace consolidation, slightly increased from the prior study. Obdulio Sam MD on December 30, 2017 at 14:21 Board Certified Radiologist. This report was verified electronically.
--- NOTE | 2017-12-30 20:06 | HHI.PR ---
Subjective Remarks No events overnight. Patient is on TP's with 40% FIO2. . Tolerating tube feeds. Tolerates TF to goal rate No fever Moderate amount of thick mucous more awake On Fi02 50% No diarrhoea Objective Vital Signs Vital Signs Date Time Temp Pulse Resp B/P (MAP) Pulse Ox O2 Delivery O2 Flow Rate FiO2 12/30/17 16:27 93 T-piece 6.00 60 12/30/17 16:00 98.6 43 20 142/70 (94) 91 12/30/17 12:00 98.2 48 20 114/53 (73) 94 12/30/17 08:35 95 T-piece 60 12/30/17 08:00 98.0 42 20 121/71 (88) 92 12/30/17 08:00 T-Piece 10.00 60 12/30/17 04:00 99.3 49 20 113/53 (73) 94 12/30/17 00:00 98.4 45 20 119/58 (78) 97 12/29/17 22:47 49 22 120/55 (76) 97 12/29/17 22:30 97 12/29/17 22:15 94 12/29/17 22:00 97 12/29/17 21:49 93 T-piece 10.00 60 12/29/17 21:45 91 12/29/17 21:30 88 12/29/17 21:15 90 12/29/17 20:45 93 I/O 12/29/17 12/29/17 12/29/17 12/30/17 12/30/17 12/30/17 07:00 15:00 23:00 07:00 15:00 23:00 Intake Total 1026 ml 1040 ml 995 ml 1010 ml Output Total 975 ml 500.0 ml 750 ml 0 ml 300 ml Balance 51 ml 540.0 ml 245 ml 0 ml 710 ml Tube Feeding 526 ml 540 ml 495 ml 510 ml Other 500 ml 500 ml 500 ml 500 ml Output Urine Total 975 ml 500 ml 750 ml 300 ml Tube Feeding Residual Discard 0 ml 0 ml # Bowel Movements 1 1 0 Result Diagram: 12/29/1720 12/29/17 0720 Objective Remarks GENERAL: Elderly female,NAD SKIN: Warm and dry. HEAD: Normocephalic. EYES: No scleral icterus. No injection or drainage. NECK: Supple, trachea midline. No JVD or lymphadenopathy. + trach CARDIOVASCULAR: Regular rate and rhythm without murmurs, gallops, or rubs. RESPIRATORY: Breath sounds equal bilaterally. No accessory muscle use. GASTROINTESTINAL: Abdomen soft, non-tender, nondistended. MUSCULOSKELETAL: No cyanosis, or edema. BACK: Nontender without obvious deformity. No CVA tenderness. A/P Assessment and Plan Chronic resp failure, ,S/P Trach CVA Pneumonia Calcified Granuloma LLL Pseudomonas Tracheobronchitis, PLAN: Continue with TP's, keep sats >92% Bronchodilators, Pulm toilet, trach care Cont TF GI/DVT prophylaxis [facility] RN at [facility],Chris Hester MD December 30, 2017 20:06
[2017-12-31] VITALS (9 sets, daily range): BP systolic 115–135; BP diastolic 44–70; PULSE 43–89; RESP 16–20; TEMP 98.5–99.1; O2SAT 89–99
[2017-12-31] MEDS: RESP: COLISTIN 150 MG VIAL NEB SCH ×2 (00:31→08:48)
[2017-12-31] MEDS: INSULIN NovoLIN REGULAR SUPPLEMENTAL SCALE SQ SCH ×4 (00:36→17:04)
[2017-12-31] MEDS: INSULIN DETEMIR 100 UNITS/ML VIAL SQ SCH ×2 (00:36→12:00)
[2017-12-31] MEDS: FREE WATER PO SCH ×4 (05:15→17:47)
[2017-12-31] MEDS: hydrALAZINE HCL 10 MG TAB PEG SCH ×3 (05:15→21:42)
[2017-12-31] MEDS: HEPARIN SODIUM - SQ 10,000 UNITS/ML VIAL SQ SCH ×3 (05:15→21:42)
[2017-12-31] MEDS: RESP: ALBUTEROL 2.5 MG/IPRATROPIUM 0.5 MG NEB (SCH) NEB ×3 (08:48→19:29)
[2017-12-31] MEDS: POTASSIUM CHLORIDE 25 MEQ EFFERVESCENT TAB PEG SCH (08:53)
[2017-12-31] MEDS: CALCIUM POLYCARBOPHIL 625 MG TAB PO SCH ×2 (08:53→21:42)
[2017-12-31] MEDS: CHOLESTYRAMINE LIGHT 4 GM PACKAGE PEG SCH ×2 (08:53→21:44)
[2017-12-31] MEDS: LANSOPRAZOLE SOLUTAB 30 MG TAB NG SCH (08:54)
[2017-12-31] MEDS: CALCIUM/VITAMIN D 250 MG/125 U TAB PEG SCH ×3 (08:54→17:47)
[2017-12-31] MEDS: ASPIRIN 325 MG TAB DOBHOFF SCH (08:54)
[2017-12-31] MEDS: LISINOPRIL 5 MG TAB PEG SCH (08:54)
[2017-12-31] MEDS: CHOLECALCIFEROL (VIT D3) 5000 UNIT CAP PEG SCH (08:54)
[2017-12-31] MEDS: LACTOBACILLUS ACIDOPHILUS TAB PEG SCH ×2 (08:54→21:42)
[2017-12-31] MEDS: LINEZOLID 600 MG TAB PO SCH ×2 (08:54→21:42)
[2017-12-31] MEDS: FUROSEMIDE 40 MG TAB PO SCH ×2 (08:56→17:47)
--- NOTE | 2017-12-31 10:20 | HHI.PR ---
Subjective Remarks FiO2 increased today secondary to hypoxemia. BiPAP is being considered. Patient is unable to verbalize. Objective Vital Signs Date Time Temp Pulse Resp B/P (MAP) Pulse Ox O2 Delivery O2 Flow Rate FiO2 12/31/17 08:49 96 T-piece 10.00 60 12/31/17 08:00 98.8 89 16 124/70 (88) 97 12/31/17 04:00 98.5 43 20 125/54 (77) 91 12/31/17 00:30 94 T-piece 10.00 50 12/31/17 00:00 98.5 53 20 135/68 (90) 99 12/30/17 20:00 T-Piece 10.00 60 12/30/17 20:00 98.5 78 20 116/57 (76) 97 12/30/17 16:27 93 T-piece 6.00 60 12/30/17 16:00 98.6 43 20 142/70 (94) 91 12/30/17 12:00 98.2 48 20 114/53 (73) 94 I/O 12/30/17 12/30/17 12/30/17 12/31/17 12/31/17 12/31/17 07:00 15:00 23:00 07:00 15:00 23:00 Intake Total 995 ml 1010 ml 1193 ml Output Total 750 ml 0 ml 300.0 ml 500 ml Balance 245 ml 0 ml 710.0 ml 693 ml Tube Feeding 495 ml 510 ml 693 ml Other 500 ml 500 ml 500 ml Output Urine Total 750 ml 300 ml 500 ml Tube Feeding Residual Discard 0 ml 0 ml # Bowel Movements 0 1 Result Diagram: 12/29/17 0720 12/29/17 0720 Procedures Tracheostomy 05/15/17 PEG 05/16/17 Objective Remarks GENERAL: NAD, A&Ox0 HEAD: Normocephalic. NECK: Supple, trachea midline. No lymphadenopathy. Tracheostomy present. EYES: No scleral icterus. No injection or drainage. CARDIOVASCULAR: Regular rate and rhythm without murmurs, gallops, or rubs. RESPIRATORY: Breath sounds equal bilaterally. No accessory muscle use. GASTROINTESTINAL: Abdomen soft, non-tender, nondistended. MUSCULOSKELETAL: No cyanosis, or edema. SKIN: Warm and dry. NEURO: No focal neurological deficitis. A/P Problem List: (1) CVA (cerebral vascular accident) ICD Code: I63.9 - Cerebral infarction, unspecified Status: Chronic Assessment and Plan 76 y/o female with HTN, DM admitted for DKA and hip fracture s/p large CVA . Graduating hypoxemia is suspicious for mucous plugging. No findings on most recent chest x-ray to suggest this. Return to BiPAP versus bronchoscopy. Pulmonology is requested be contacted for this decision. 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 No expectations for recovery Expectations are for chronic debility of motor function in cognitive status Overall poor prognosis Daily aspirin continued Sacral decubitus ulcer Continue wound care Calcium Alginate History of urinary retention Catheter as needed Follow urine output Diabetes mellitus type 2 Follow blood sugars Insulin sliding scale Diabetic diet Hypertension Follow blood pressures Continue present treatments Adjust as needed 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
--- NOTE | 2017-12-31 20:10 | HHI.PR ---
Subjective Remarks No events overnight. Patient is on TP's with 40% FIO2. . Tolerating tube feeds. Tolerates TF to goal rate No fever Moderate amount of thick mucous more awake On Fi02 60% CXR Rt infilt ? Mocous plugging Objective Vital Signs Vital Signs Date Time Temp Pulse Resp B/P (MAP) Pulse Ox O2 Delivery O2 Flow Rate FiO2 12/31/17 16:00 98.5 49 16 115/44 (67) 93 12/31/17 12:00 99.1 44 16 130/66 (87) 89 12/31/17 08:49 96 T-piece 10.00 60 12/31/17 08:00 98.8 89 16 124/70 (88) 97 12/31/17 08:00 T-Piece 6.00 40 12/31/17 04:00 98.5 43 20 125/54 (77) 91 12/31/17 00:30 94 T-piece 10.00 50 12/31/17 00:00 98.5 53 20 135/68 (90) 99 I/O 12/30/17 12/30/17 12/30/17 12/31/17 12/31/17 12/31/17 07:00 15:00 23:00 07:00 15:00 23:00 Intake Total 995 ml 1010 ml 1193 ml 1040 ml Output Total 750 ml 0 ml 300.0 ml 500 ml 450 ml Balance 245 ml 0 ml 710.0 ml 693 ml 590 ml Tube Feeding 495 ml 510 ml 693 ml 540 ml Other 500 ml 500 ml 500 ml 500 ml Output Urine Total 750 ml 300 ml 500 ml 450 ml Tube Feeding Residual Discard 0 ml 0 ml # Bowel Movements 0 1 2 Result Diagram: 12/29/1720 12/29/17719 Objective Remarks GENERAL: Elderly female,NAD SKIN: Warm and dry. HEAD: Normocephalic. EYES: No scleral icterus. No injection or drainage. NECK: Supple, trachea midline. No JVD or lymphadenopathy. + trach CARDIOVASCULAR: Regular rate and rhythm without murmurs, gallops, or rubs. RESPIRATORY: Breath sounds equal bilaterally. No accessory muscle use. GASTROINTESTINAL: Abdomen soft, non-tender, nondistended. MUSCULOSKELETAL: No cyanosis, or edema. BACK: Nontender without obvious deformity. No CVA tenderness. A/P Assessment and Plan Chronic resp failure, ,S/P Trach CVA Pneumonia Calcified Granuloma LLL Pseudomonas Tracheobronchitis, PLAN: Continue with TP's, keep sats >92% Bronchodilators, Pulm toilet, trach care Cont TF GI/DVT prophylaxis DW RN at [facility] [put On BIPAPA Mucomyst Nebs Scheduled bronch for 3:00PM 01/01 Chris Rizo MD December 31, 2017 20:10
[2017-12-31 21:35] LABS: AUTOMATED NEUTROPHIL # 14.8 TH/MM3 (1.8-7.7); BASOPHIL # 0.1 TH/MM3 (0-0.2); BASOPHIL % 0.7 % (0.0-2.0); EOSINOPHIL # 0.1 TH/MM3 (0-0.4); EOSINOPHIL % 0.5 % (0.0-4.0); HEMATOCRIT 21.7 % (35.0-46.0); HEMOGLOBIN 7.3 GM/DL (11.6-15.3); LYMPH % 10.9 % (9.0-44.0); MEAN CELL VOLUME 98.6 FL (80.0-100.0); MEAN CORPUSCULAR HEMOGLOBIN 33.3 PG (27.0-34.0); MEAN CORPUSCULAR HGB CONC 33.7 % (32.0-36.0); MONO % 5.2 % (0.0-8.0); MONOCYTE # 0.9 TH/MM3 (0-0.9); NEUT % 82.7 % (16.0-70.0); PLATELET COUNT 215 TH/MM3 (150-450); RED CELL DISTRIBUTION WIDTH 13.8 % (11.6-17.2); WHITE BLOOD COUNT 17.9 TH/MM3 (4.0-11.0)
[2017-12-31 21:50] LABS: INTERNATIONAL NORMALIZED RATIO 1.1 RATIO; PROTHROMBIN TIME - PATIENT 11.4 SEC (9.8-11.6)
[2017-12-31 21:57] LABS: BICARBONATE 25.9 MEQ/L (21.0-32.0); CALCIUM 9.8 MG/DL (8.5-10.1); CREATININE 1.18 MG/DL (0.50-1.00)
[2017-12-31] MEDS: RESP: ACETYLCYSTEINE 20% 30 ML NEB NEB SCH (22:00)
[2017-12-31] MEDS: RESP: ALBUTEROL 2.5 MG/3 ML NEB (PRN) NEB (22:01)
[2017-12-31] MEDS ORDERED: CALCIUM GLUCONATE INJ 1 GM in SODIUM CHLORIDE 0.9% INJ 100 ML IV ONE (23:15)
[2017-12-31] MEDS ORDERED: SODIUM POLYSTYRENE SULFONATE SUSP 15 GM/60 ML CUP G-TUBE SCH (23:15)
[2017-12-31] MEDS ORDERED: DEXTROSE 50% IN WATER 50 ML VIAL(D50) IV PUSH ONE (23:15)
[2017-12-31] MEDS ORDERED: CALCIUM GLUCONATE 10% 1 GM/10 ML VIAL IV PUSH ONE (23:15)
[2017-12-31] MEDS ORDERED: INSULIN HUMAN REGULAR 1,000 UNITS/10 ML VIAL IV PUSH ONE (23:15)
[2018-01-01] VITALS (16 sets, daily range): BP systolic 121–165; BP diastolic 54–85; PULSE 45–105; RESP 18–22; TEMP 97.9–99.1; O2SAT 90–100
[2018-01-01 00:15] LABS: BICARBONATE 27.5 MEQ/L (21.0-32.0); CALCIUM 9.9 MG/DL (8.5-10.1); CREATININE 1.09 MG/DL (0.50-1.00)
[2018-01-01] MEDS: INSULIN NovoLIN REGULAR SUPPLEMENTAL SCALE SQ SCH ×4 (00:40→17:39)
[2018-01-01] MEDS: INSULIN DETEMIR 100 UNITS/ML VIAL SQ SCH ×2 (00:41→12:00)
[2018-01-01] MEDS ORDERED: FUROSEMIDE 20 MG/2 ML VIAL IV PUSH ONE (01:00)
[2018-01-01] MEDS ORDERED: DEXTROSE 50% IN WATER 50 ML VIAL(D50) IV PUSH ONE (01:00)
[2018-01-01] MEDS ORDERED: INSULIN HUMAN REGULAR 1,000 UNITS/10 ML VIAL IV PUSH ONE ×2 (01:00→03:00)
[2018-01-01] MEDS: SODIUM POLYSTYRENE SULFONATE SUSP 15 GM/60 ML CUP PO SCH ×4 (01:23→17:37)
[2018-01-01] MEDS: RESP: ACETYLCYSTEINE 20% 30 ML NEB NEB SCH ×4 (03:50→20:06)
[2018-01-01] MEDS: RESP: ALBUTEROL 2.5 MG/3 ML NEB (PRN) NEB (03:50)
[2018-01-01 05:10] LABS: HEMATOCRIT 21.5 % (35.0-46.0); HEMOGLOBIN 7.3 GM/DL (11.6-15.3)
[2018-01-01 05:36] LABS: MAGNESIUM 2.2 MG/DL (1.5-2.5); PHOSPHORUS 2.4 MG/DL (2.5-4.9)
[2018-01-01] MEDS: FREE WATER PO SCH ×4 (06:00→17:37)
[2018-01-01] MEDS: HEPARIN SODIUM - SQ 10,000 UNITS/ML VIAL SQ SCH ×3 (06:18→21:14)
[2018-01-01] MEDS: hydrALAZINE HCL 10 MG TAB PEG SCH ×3 (06:18→21:16)
[2018-01-01] MEDS: CHOLECALCIFEROL (VIT D3) 5000 UNIT CAP PEG SCH (07:58)
[2018-01-01] MEDS: ASPIRIN 325 MG TAB DOBHOFF SCH (07:58)
[2018-01-01] MEDS: CALCIUM POLYCARBOPHIL 625 MG TAB PO SCH ×2 (07:58→20:14)
[2018-01-01] MEDS: LANSOPRAZOLE SOLUTAB 30 MG TAB NG SCH (07:58)
[2018-01-01] MEDS: CALCIUM/VITAMIN D 250 MG/125 U TAB PEG SCH ×3 (07:59→17:37)
[2018-01-01] MEDS: LINEZOLID 600 MG TAB PO SCH ×2 (07:59→20:14)
[2018-01-01] MEDS: LACTOBACILLUS ACIDOPHILUS TAB PEG SCH ×2 (07:59→20:14)
[2018-01-01] MEDS: FUROSEMIDE 40 MG TAB PO SCH ×2 (07:59→17:37)
[2018-01-01] MEDS: LISINOPRIL 5 MG TAB PEG SCH (08:00)
[2018-01-01] MEDS: POTASSIUM CHLORIDE 25 MEQ EFFERVESCENT TAB PEG SCH (08:00)
[2018-01-01] MEDS: RESP: ALBUTEROL 2.5 MG/IPRATROPIUM 0.5 MG NEB (SCH) NEB ×3 (08:26→20:06)
[2018-01-01] MEDS: SODIUM CHLOR 0.9% 1000 ML INJ 1,000 ML IV SCH ×2 (08:30→18:30)
[2018-01-01] MEDS ORDERED: SODIUM CHLOR 0.9% 250 ML INJ 250 ML IV ONE (08:30)
[2018-01-01] MEDS: CHOLESTYRAMINE LIGHT 4 GM PACKAGE PEG SCH ×2 (09:00→20:13)
[2018-01-01 12:16] LABS: BICARBONATE 26.1 MEQ/L (21.0-32.0); CALCIUM 10.1 MG/DL (8.5-10.1); CREATININE 1.09 MG/DL (0.50-1.00)
--- NOTE | 2018-01-01 12:25 | HHI.PR ---
Subjective Remarks Patient transition to BiPAP. Her oxygenation is doing better. Bronchoscopy is planned, however patient has hyperkalemia present this morning. Etiology may be hemolysis. Objective Vital Signs Date Time Temp Pulse Resp B/P (MAP) Pulse Ox O2 Delivery O2 Flow Rate FiO2 01/01/18 08:27 99 45 01/01/18 04:01 95 45 01/01/18 04:00 97.9 57 18 121/62 (81) 90 01/01/18 00:11 96 45 01/01/18 00:00 98.2 54 18 129/54 (79) 98 12/31/17 22:24 T-Piece 10.00 60 12/31/17 21:11 95 45 12/31/17 20:00 98.5 84 20 133/66 (88) 97 12/31/17 16:00 98.5 49 16 115/44 (67) 93 I/O 12/31/17 12/31/17 12/31/17 01/01/18 01/01/18 01/01/18 07:00 15:00 23:00 07:00 15:00 23:00 Intake Total 1193 ml 1040 ml 725 ml Output Total 500 ml 450 ml 300 ml Balance 693 ml 590 ml 425 ml Tube Feeding 693 ml 540 ml 225 ml Other 500 ml 500 ml 500 ml Output Urine Total 500 ml 450 ml 300 ml # Bowel Movements 1 2 1 Result Diagram: 01/01/18 0329 12/31/17 2343 Procedures Tracheostomy 05/15/17 PEG 05/16/17 Objective Remarks GENERAL: NAD, A&Ox0 HEAD: Normocephalic. NECK: Supple, trachea midline. No lymphadenopathy. Tracheostomy present. EYES: No scleral icterus. No injection or drainage. CARDIOVASCULAR: Regular rate and rhythm without murmurs, gallops, or rubs. RESPIRATORY: Breath sounds equal bilaterally. No accessory muscle use. GASTROINTESTINAL: Abdomen soft, non-tender, nondistended. MUSCULOSKELETAL: No cyanosis, or edema. SKIN: Warm and dry. NEURO: No focal neurological deficitis. A/P Problem List: (1) CVA (cerebral vascular accident) ICD Code: I63.9 - Cerebral infarction, unspecified Status: Chronic Assessment and Plan 76 y/o female with HTN, DM admitted for DKA and hip fracture s/p large CVA . Hyperkalemia present this morning. Kayexalate started. IV with normal saline started. Monitor potassium levels closely. Bronchoscopy on hold secondary to this. Stool study for occult blood. Alternate etiology could be hemolysis. 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 No expectations for recovery Expectations are for chronic debility of motor function in cognitive status Overall poor prognosis Daily aspirin continued Sacral decubitus ulcer Continue wound care Calcium Alginate History of urinary retention Catheter as needed Follow urine output Diabetes mellitus type 2 Follow blood sugars Insulin sliding scale Diabetic diet Hypertension Follow blood pressures Continue present treatments Adjust as needed 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
[2018-01-01] MEDS ORDERED: FUROSEMIDE 40 MG/4 ML VIAL IV PUSH PRN (15:00)
--- NOTE | 2018-01-01 15:22 | HHI.PR ---
Subjective Remarks No events overnight. Patient is on TP's with 40% FIO2. . Tolerating tube feeds. Tolerates TF to goal rate No fever Moderate amount of thick mucous CXR Rt infilt ? Mocous plugging On BIPAP 13/01, Fi02 60% Bronch cancelled today due high K+ DW daughter last night Objective Vital Signs Vital Signs Date Time Temp Pulse Resp B/P (MAP) Pulse Ox O2 Delivery O2 Flow Rate FiO2 01/01/18 15:11 98.1 65 20 165/58 97 01/01/18 14:43 99.0 60 20 165/63 96 01/01/18 14:32 97 60 01/01/18 08:27 99 45 01/01/18 04:01 95 45 01/01/18 04:00 97.9 57 18 121/62 (81) 90 01/01/18 00:11 96 45 01/01/18 00:00 98.2 54 18 129/54 (79) 98 12/31/17 22:24 T-Piece 10.00 60 12/31/17 21:11 95 45 12/31/17 20:00 98.5 84 20 133/66 (88) 97 12/31/17 16:00 98.5 49 16 115/44 (67) 93 I/O 12/31/17 12/31/17 12/31/17 01/01/18 01/01/18 01/01/18 07:00 15:00 23:00 07:00 15:00 23:00 Intake Total 1193 ml 1040 ml 725 ml 250 ml Output Total 500 ml 450 ml 300 ml Balance 693 ml 590 ml 425 ml 250 ml Tube Feeding 693 ml 540 ml 225 ml Blood Product IV Normal Saline Flush 250 ml Other 500 ml 500 ml 500 ml Output Urine Total 500 ml 450 ml 300 ml # Bowel Movements 1 2 1 Result Diagram: 01/01/18 0329 01/01/18 1139 Objective Remarks GENERAL: Elderly female,NAD SKIN: Warm and dry. HEAD: Normocephalic. EYES: No scleral icterus. No injection or drainage. NECK: Supple, trachea midline. No JVD or lymphadenopathy. + trach CARDIOVASCULAR: Regular rate and rhythm without murmurs, gallops, or rubs. RESPIRATORY: Breath sounds equal bilaterally. No accessory muscle use. GASTROINTESTINAL: Abdomen soft, non-tender, nondistended. MUSCULOSKELETAL: No cyanosis, or edema. BACK: Nontender without obvious deformity. No CVA tenderness. A/P Assessment and Plan Chronic resp failure, ,S/P Trach CVA Pneumonia Calcified Granuloma LLL Pseudomonas Tracheobronchitis, PLAN: Continue with TP's, keep sats >92% Bronchodilators, Pulm toilet, trach care Cont TF GI/DVT prophylaxis DW RN at [facility] [put On BIPAP 15?5 Mucomyst Nebs Scheduled bronch for 10:30AM 01/02 DW RT Monitor lytes Correct K+, DW Dr.Danial Crook. Chris Rizo MD January 01, 2018 15:22
--- NOTE | 2018-01-01 15:54 | EKG ---
Date Performed: 01/01/2018 Time Performed: 00:52:56 PTAGE: 77 years EKG: Atrial fibrillation with slow ventricular response Left axis deviation IV conduction defect Poor R wave progression - cannot rule out anteroseptal infarct Abnormal ECG PREVIOUS TRACING 12/02/17 Nonspecific lateral T-wave changes. Possible old anterior myocardial w all infarction. Since the prior tracing, the atrial fibrillation is new. The pauses in rhythm are new . There has been some variation in the nonspecific T-wave changes, and the intraventricular conductio n defect is new. Significant serial changes have occurred, and clinical correlation will be important . DOCTOR: Jess Bhandari Interpretating Date/Time 01/01/2018 15:52:20
[2018-01-01] MEDS: ONDANSETRON HCL 4 MG/2 ML VIAL IV PUSH PRN (20:16)
[2018-01-02] VITALS (44 sets, daily range): BP systolic 92–203; BP diastolic 52–90; PULSE 70–103; RESP 14–26; TEMP 97.7–99; O2SAT 89–100
[2018-01-02] MEDS: INSULIN NovoLIN REGULAR SUPPLEMENTAL SCALE SQ SCH ×5 (00:30→23:38)
[2018-01-02] MEDS: RESP: ACETYLCYSTEINE 20% 30 ML NEB NEB SCH ×4 (03:40→21:36)
[2018-01-02] MEDS: RESP: ALBUTEROL 2.5 MG/3 ML NEB (PRN) NEB (03:41)
[2018-01-02] MEDS: SODIUM CHLOR 0.9% 1000 ML INJ 1,000 ML IV SCH (04:13)
[2018-01-02] MEDS: HEPARIN SODIUM - SQ 10,000 UNITS/ML VIAL SQ SCH (06:00)
[2018-01-02] MEDS: FREE WATER PO SCH ×5 (06:00→23:30)
[2018-01-02] MEDS: oxyCODONE HCL ORAL CONC 5 MG/0.25 ML SYRINGE PO PRN ×3 (06:28→20:22)
[2018-01-02] MEDS: hydrALAZINE HCL 10 MG TAB PEG SCH ×3 (06:28→21:08)
[2018-01-02] MEDS: ONDANSETRON HCL 4 MG/2 ML VIAL IV PUSH PRN ×2 (06:28→20:23)
[2018-01-02] MEDS: RESP: ALBUTEROL 2.5 MG/IPRATROPIUM 0.5 MG NEB (SCH) NEB ×3 (07:57→21:36)
[2018-01-02] MEDS: ASPIRIN 325 MG TAB DOBHOFF SCH (08:04)
[2018-01-02] MEDS: POTASSIUM CHLORIDE 25 MEQ EFFERVESCENT TAB PEG SCH (08:05)
[2018-01-02 08:35] LABS: AUTOMATED NEUTROPHIL # 8.2 TH/MM3 (1.8-7.7); BASOPHIL # 0.1 TH/MM3 (0-0.2); EOSINOPHIL # 0.3 TH/MM3 (0-0.4); EOSINOPHIL % 2.7 % (0.0-4.0); HEMATOCRIT 31.5 % (35.0-46.0); LYMPH % 9.1 % (9.0-44.0); LYMPHOCYTE # 0.9 TH/MM3 (1.0-4.8); MEAN CORPUSCULAR HEMOGLOBIN 31.8 PG (27.0-34.0); MEAN PLATELET VOLUME 7.2 FL (7.0-11.0); MONO % 6.3 % (0.0-8.0); MONOCYTE # 0.6 TH/MM3 (0-0.9); NEUT % 80.9 % (16.0-70.0); PLATELET COUNT 217 TH/MM3 (150-450); RED BLOOD COUNT 3.47 MIL/MM3 (4.00-5.30); RED CELL DISTRIBUTION WIDTH 17.8 % (11.6-17.2); WHITE BLOOD COUNT 10.1 TH/MM3 (4.0-11.0)
[2018-01-02] MEDS: LACTOBACILLUS ACIDOPHILUS TAB PEG SCH ×2 (09:00→20:22)
[2018-01-02] MEDS: LISINOPRIL 5 MG TAB PEG SCH (09:00)
[2018-01-02] MEDS: FUROSEMIDE 40 MG TAB PO SCH ×2 (09:00→17:08)
[2018-01-02] MEDS ORDERED: LABETALOL HCL 100 MG/20 ML VIAL IV PUSH ONE (09:00)
[2018-01-02] MEDS: CALCIUM/VITAMIN D 250 MG/125 U TAB PEG SCH ×3 (09:00→17:07)
[2018-01-02] MEDS: CALCIUM POLYCARBOPHIL 625 MG TAB PO SCH ×2 (09:00→20:22)
[2018-01-02] MEDS: CHOLECALCIFEROL (VIT D3) 5000 UNIT CAP PEG SCH (09:00)
[2018-01-02 09:12] LABS: ALBUMIN 2.4 GM/DL (3.4-5.0); ALKALINE PHOSPHATASE 172 U/L (45-117); ALT (GPT) 28 U/L (10-53); AST (GOT) 29 U/L (15-37); BICARBONATE 26.9 MEQ/L (21.0-32.0); BLOOD UREA NITROGEN 43 MG/DL (7-18); CHLORIDE 103 MEQ/L (98-107); CREATININE 0.71 MG/DL (0.50-1.00); GLOMERULAR FILTRATION RATE 80 ML/MIN (>89); GLUCOSE,RANDOM 148 MG/DL (74-106); SODIUM (NA) 141 MEQ/L (136-145); TOTAL BILIRUBIN ADULT 0.4 MG/DL (0.2-1.0); TOTAL PROTEIN 6.5 GM/DL (6.4-8.2)
[2018-01-02] MEDS ORDERED: FUROSEMIDE 100 MG/10 ML VIAL IV PUSH ONE (09:30)
[2018-01-02] MEDS ORDERED: PROPOFOL 500 MG/50 ML INJ 50 ML ONE (10:30)
[2018-01-02] MEDS ORDERED: PROPOFOL 100 MG/10 ML INJ IV ONE ×2 (10:42→10:45)
[2018-01-02] MEDS ORDERED: PROPOFOL 1000 MG/100 ML IV SCH (11:00)
[2018-01-02] MEDS: LANSOPRAZOLE SOLUTAB 30 MG TAB NG SCH (11:06)
[2018-01-02] MEDS: INSULIN DETEMIR 100 UNITS/ML VIAL SQ SCH ×3 (11:09→23:38)
[2018-01-02] MEDS: LINEZOLID 600 MG TAB PO SCH ×2 (11:09→20:22)
--- NOTE | 2018-01-02 11:12 | MR ---
cc: Chris Rizo MD DATE: 01/02/2018 PROCEDURE: Bronchoscopy. PREOPERATIVE DIAGNOSIS: Atelectasis of the right lung. POSTOPERATIVE DIAGNOSIS: Mucous plugging. DESCRIPTION OF PROCEDURE: Informed consent was obtained from the patient's daughter. The procedure and the complications were explained. She agreed for the procedure and consented for it. The patient is already on ventilator. She was sedated with Diprivan drip and a total of 7 mL of Diprivan was given. Bronchoscopy was done through the tracheostomy tube. Main valerie is sharp. Bronchoscope advanced to the right lung. Thick mucous plugs were removed. After repeated suctioning, all subsegments were noted to be patent with no significant erythema, no endobronchial lesion was seen. Then the bronchoscope was pulled back, advanced to the left lung. Left upper, lingular and lower lobe visualized. Small amount of mucus was suctioned. No endobronchial lesion was seen. She tolerated the procedure well. Bronchial washings sent for routine culture, AFB, fungal cultures and cytology. She tolerated the procedure well. MD JASON Sotelo/SANTY , 10:57 AM , 11:11 AM
[2018-01-02] MEDS: CHOLESTYRAMINE LIGHT 4 GM PACKAGE PEG SCH ×2 (11:13→20:21)
--- NOTE | 2018-01-02 11:16 | HHI.PR ---
Subjective Remarks Worsened respiratory status. HTN Urgency and Tachycardia present today. Potassium levels improved. Bronchoscopy planned today. Objective Vital Signs Date Time Temp Pulse Resp B/P (MAP) Pulse Ox O2 Delivery O2 Flow Rate FiO2 01/02/18 10:15 97 16 196/86 (122) 99 01/02/18 10:10 88 16 195/81 (119) 99 01/02/18 10:05 99 16 198/81 (120) 99 01/02/18 10:00 82 16 197/80 (119) 99 01/02/18 09:55 84 26 193/82 (119) 98 01/02/18 09:50 84 24 203/80 (121) 99 01/02/18 09:40 83 20 189/79 (115) 99 01/02/18 09:25 96 20 191/79 (116) 99 01/02/18 09:20 90 20 203/87 (125) 99 01/02/18 09:00 82 20 175/71 (105) 89 01/02/18 08:55 83 18 188/83 (118) 97 01/02/18 08:45 98 26 195/72 (113) 97 01/02/18 08:40 94 14 190/81 (117) 97 01/02/18 08:00 97.9 95 24 161/52 (88) 97 01/02/18 07:57 98 BiPAP 60 01/02/18 07:54 98 60 01/02/18 03:51 98.1 103 20 140/75 (96) 97 01/02/18 03:41 98 60 01/02/18 00:11 97.7 96 20 144/81 (102) 98 01/02/18 00:08 97 50 01/01/18 20:09 96 35 01/01/18 20:09 99 BiPAP 35 01/01/18 20:00 98 T-Piece 50 01/01/18 19:12 99.1 105 20 165/85 (111) 96 01/01/18 18:12 98.8 101 20 148/72 95 01/01/18 17:53 98.9 103 20 148/78 94 01/01/18 17:21 98.3 100 22 153/72 95 01/01/18 16:00 98.3 95 22 143/78 (99) 100 01/01/18 15:11 98.1 65 20 165/58 97 01/01/18 14:43 99.0 60 20 165/63 96 01/01/18 14:32 97 60 01/01/18 12:00 99.1 45 22 138/64 (88) 95 I/O 01/01/18 01/01/18 01/01/18 01/02/18 01/02/18 01/02/18 07:00 15:00 23:00 07:00 15:00 23:00 Intake Total 725 ml 250 ml 2900 ml 900 ml 200 ml Output Total 300 ml 0 ml 1500 ml Balance 425 ml 250 ml 2900 ml -600 ml 200 ml IV Total 1600 ml 300 ml 200 ml Tube Feeding 225 ml 0 ml Packed Cells 1200 ml Blood Product IV Normal Saline Flush 250 ml 100 ml Other 500 ml 600 ml Output Urine Total 300 ml 1500 ml Tube Feeding Residual Discard 0 ml # Bowel Movements 1 4 Result Diagram: 01/02/18 0815 01/02/18 0815 Procedures Tracheostomy 05/15/17 PEG 05/16/17 Objective Remarks GENERAL: NAD, A&Ox0 HEAD: Normocephalic. NECK: Supple, trachea midline. No lymphadenopathy. Tracheostomy present. EYES: No scleral icterus. No injection or drainage. CARDIOVASCULAR: Regular rate and rhythm without murmurs, gallops, or rubs. RESPIRATORY: Breath sounds equal bilaterally. No accessory muscle use. GASTROINTESTINAL: Abdomen soft, non-tender, nondistended. MUSCULOSKELETAL: No cyanosis, or edema. SKIN: Warm and dry. NEURO: No focal neurological deficitis. A/P Problem List: (1) CVA (cerebral vascular accident) ICD Code: I63.9 - Cerebral infarction, unspecified Status: Chronic Assessment and Plan 76 y/o female with HTN, DM admitted for DKA and hip fracture s/p large CVA . Bronchoscopy today. Labetalol IV. Lasix IV. Placed on ventilator for declined respiratory status. 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 No expectations for recovery Expectations are for chronic debility of motor function in cognitive status Overall poor prognosis Daily aspirin continued Sacral decubitus ulcer Continue wound care Calcium Alginate History of urinary retention Catheter as needed Follow urine output Diabetes mellitus type 2 Follow blood sugars Insulin sliding scale Diabetic diet Hypertension Follow blood pressures Continue present treatments Adjust as needed 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
[2018-01-02] MEDS ORDERED: PROPOFOL 1000 MG/100 ML IV ONE (11:30)
--- NOTE | 2018-01-02 17:45 | HHI.PR ---
Subjective Remarks No events overnight. Patient is on TP's with 40% FIO2. . Tolerating tube feeds. Tolerates TF to goal rate No fever Moderate amount of thick mucous On Vent, AC 16 had bronch, mucous plugs removed Objective Vital Signs Vital Signs Date Time Temp Pulse Resp B/P (MAP) Pulse Ox O2 Delivery O2 Flow Rate FiO2 01/02/18 17:09 99 50 01/02/18 16:00 50 01/02/18 15:12 20 01/02/18 15:00 88 01/02/18 13:50 50 01/02/18 13:48 100 50 01/02/18 13:30 86 16 159/84 (109) 100 01/02/18 13:15 88 20 170/64 (99) 100 01/02/18 13:00 90 16 160/80 (106) 100 01/02/18 12:30 94 16 147/86 (106) 99 01/02/18 12:20 99.0 85 16 154/79 (104) 99 01/02/18 12:00 84 20 148/80 (102) 99 01/02/18 11:45 84 16 127/70 (89) 100 01/02/18 11:30 84 16 162/67 (98) 99 01/02/18 11:22 100 100 01/02/18 11:15 85 16 110/90 (97) 99 01/02/18 11:00 93 16 92/56 (68) 99 01/02/18 10:40 80 18 203/87 (125) 100 01/02/18 10:30 100 100 01/02/18 10:30 90 24 191/86 (121) 99 01/02/18 10:15 97 16 196/86 (122) 99 01/02/18 10:10 88 16 195/81 (119) 99 01/02/18 10:05 99 16 198/81 (120) 99 01/02/18 10:00 82 16 197/80 (119) 99 01/02/18 10:00 100 01/02/18 10:00 98 01/02/18 09:55 84 26 193/82 (119) 98 01/02/18 09:50 84 24 203/80 (121) 99 01/02/18 09:40 83 20 189/79 (115) 99 01/02/18 09:25 96 20 191/79 (116) 99 01/02/18 09:20 90 20 203/87 (125) 99 01/02/18 09:00 82 20 175/71 (105) 89 01/02/18 08:55 83 18 188/83 (118) 97 01/02/18 08:45 98 26 195/72 (113) 97 01/02/18 08:40 94 14 190/81 (117) 97 01/02/18 08:00 97 Mechanical Ventilator 100 T-Piece Humidified 01/02/18 08:00 97.9 95 24 161/52 (88) 97 01/02/18 07:57 98 BiPAP 60 01/02/18 07:54 98 60 01/02/18 03:51 98.1 103 20 140/75 (96) 97 01/02/18 03:41 98 60 01/02/18 00:11 97.7 96 20 144/81 (102) 98 01/02/18 00:08 97 50 01/01/18 20:09 96 35 01/01/18 20:09 99 BiPAP 35 01/01/18 20:00 98 T-Piece 50 01/01/18 19:12 99.1 105 20 165/85 (111) 96 01/01/18 18:12 98.8 101 20 148/72 95 01/01/18 17:53 98.9 103 20 148/78 94 I/O 01/01/18 01/01/18 01/01/18 01/02/18 01/02/18 01/02/18 07:00 15:00 23:00 07:00 15:00 23:00 Intake Total 725 ml 250 ml 2900 ml 900 ml 200.4 ml Output Total 300 ml 0 ml 1500 ml 0 ml Balance 425 ml 250 ml 2900 ml -600 ml 200.4 ml IV Total 1600 ml 300 ml 200.4 ml Tube Feeding 225 ml 0 ml Packed Cells 1200 ml Blood Product IV Normal Saline Flush 250 ml 100 ml Other 500 ml 600 ml Output Urine Total 300 ml 1500 ml Tube Feeding Residual Discard 0 ml 0 ml # Bowel Movements 1 4 Result Diagram: 01/02/1815 01/02/1815 Objective Remarks GENERAL: Elderly female,NAD SKIN: Warm and dry. HEAD: Normocephalic. EYES: No scleral icterus. No injection or drainage. NECK: Supple, trachea midline. No JVD or lymphadenopathy. + trach CARDIOVASCULAR: Regular rate and rhythm without murmurs, gallops, or rubs. RESPIRATORY: Breath sounds equal bilaterally. No accessory muscle use. GASTROINTESTINAL: Abdomen soft, non-tender, nondistended. MUSCULOSKELETAL: No cyanosis, or edema. BACK: Nontender without obvious deformity. No CVA tenderness. A/P Assessment and Plan Chronic resp failure, ,S/P Trach CVA Pneumonia Calcified Granuloma LLL Pseudomonas Tracheobronchitis, PLAN: Vent support Continue with TP's, keep sats >92% Bronchodilators, Pulm toilet, trach care Cont TF GI/DVT prophylaxis Mucomyst Nebs Will Wean vent in AM Chris Rizo MD January 02, 2018 17:45
--- NOTE | 2018-01-02 18:30 | EKG ---
Date Performed: 01/02/2018 Time Performed: 10:03:24 PTAGE: 77 years EKG: Sinus rhythm POSSIBLE ANTERIOR MYOCARDIAL INFARCTION , OF INDETERMINATE AGE When compared to previous tracing, radha reed is now in sinus Rhythm, previously showed atrial fibrillation. ABNORMAL ECG PREVIOUS TRACING : 01/01/2018 00.52 DOCTOR: Kaur Gunderson Interpretating Date/Time 01/02/2018 16:36:55
[2018-01-02] MEDS: DIPHENOXYLATE/ATROPINE 2.5 MG/0.025 MG/5 ML CUP PO PRN (20:22)
[2018-01-03] VITALS (30 sets, daily range): BP systolic 101–161; BP diastolic 47–82; PULSE 68–88; RESP 14–20; TEMP 98.5–99.2; O2SAT 97–100
[2018-01-03] MEDS: RESP: ACETYLCYSTEINE 20% 30 ML NEB NEB SCH ×4 (02:31→21:48)
[2018-01-03] MEDS: RESP: ALBUTEROL 2.5 MG/IPRATROPIUM 0.5 MG NEB (SCH) NEB ×4 (02:31→21:48)
[2018-01-03] MEDS: DIPHENOXYLATE/ATROPINE 2.5 MG/0.025 MG/5 ML CUP PO PRN ×2 (05:28→20:21)
[2018-01-03] MEDS: oxyCODONE HCL ORAL CONC 5 MG/0.25 ML SYRINGE PO PRN ×3 (05:28→18:19)
[2018-01-03] MEDS: hydrALAZINE HCL 10 MG TAB PEG SCH ×3 (05:28→21:07)
[2018-01-03] MEDS: INSULIN NovoLIN REGULAR SUPPLEMENTAL SCALE SQ SCH ×4 (05:28→23:44)
[2018-01-03] MEDS: FREE WATER PO SCH ×4 (05:28→23:45)
[2018-01-03 08:20] LABS: AUTOMATED NEUTROPHIL # 7.9 TH/MM3 (1.8-7.7); BASOPHIL # 0.1 TH/MM3 (0-0.2); BASOPHIL % 0.8 % (0.0-2.0); EOSINOPHIL # 0.3 TH/MM3 (0-0.4); EOSINOPHIL % 2.9 % (0.0-4.0); HEMATOCRIT 29.7 % (35.0-46.0); HEMOGLOBIN 10.5 GM/DL (11.6-15.3); LYMPH % 15.6 % (9.0-44.0); LYMPHOCYTE # 1.6 TH/MM3 (1.0-4.8); MEAN CELL VOLUME 91.3 FL (80.0-100.0); MEAN CORPUSCULAR HEMOGLOBIN 32.3 PG (27.0-34.0); MEAN CORPUSCULAR HGB CONC 35.3 % (32.0-36.0); MEAN PLATELET VOLUME 7.6 FL (7.0-11.0); MONO % 5.6 % (0.0-8.0); MONOCYTE # 0.6 TH/MM3 (0-0.9); NEUT % 75.1 % (16.0-70.0); PLATELET COUNT 206 TH/MM3 (150-450); RED BLOOD COUNT 3.25 MIL/MM3 (4.00-5.30); RED CELL DISTRIBUTION WIDTH 16.9 % (11.6-17.2); WHITE BLOOD COUNT 10.5 TH/MM3 (4.0-11.0)
[2018-01-03 08:40] LABS: ALBUMIN 2.2 GM/DL (3.4-5.0); ALT (GPT) 26 U/L (10-53); AST (GOT) 21 U/L (15-37); BICARBONATE 26.5 MEQ/L (21.0-32.0); BLOOD UREA NITROGEN 39 MG/DL (7-18); CALCIUM 8.9 MG/DL (8.5-10.1); CHLORIDE 104 MEQ/L (98-107); CREATININE 0.72 MG/DL (0.50-1.00); GLOMERULAR FILTRATION RATE 79 ML/MIN (>89); GLUCOSE,RANDOM 79 MG/DL (74-106); SODIUM (NA) 141 MEQ/L (136-145)
[2018-01-03 08:43] LABS: ALKALINE PHOSPHATASE 155 U/L (45-117); TOTAL BILIRUBIN ADULT 0.2 MG/DL (0.2-1.0); TOTAL PROTEIN 6.1 GM/DL (6.4-8.2)
--- NOTE | 2018-01-03 09:43 | HHI.PR ---
Subjective Remarks Respiratory status improved. Patient is being weaned to CPAP when seen today. She is tolerating this thus far. Objective Vital Signs Date Time Temp Pulse Resp B/P (MAP) Pulse Ox O2 Delivery O2 Flow Rate FiO2 01/03/18 08:17 99 50 01/03/18 08:17 50 01/03/18 07:00 70 01/03/18 06:25 20 01/03/18 06:00 69 20 118/58 (78) 99 01/03/18 05:00 72 20 106/50 (68) 99 01/03/18 04:02 99 50 01/03/18 04:00 88 20 108/56 (73) 99 01/03/18 04:00 50 01/03/18 03:59 98.5 83 20 109/62 (78) 99 01/03/18 03:00 77 20 114/49 (70) 99 01/03/18 02:00 71 20 101/49 (66) 99 01/03/18 01:41 99 50 01/03/18 01:00 80 20 102/47 (65) 99 01/03/18 00:00 50 01/03/18 00:00 79 20 111/57 (75) 99 01/02/18 23:49 98.3 84 20 103/58 (73) 99 01/02/18 23:00 82 20 114/63 (80) 99 01/02/18 23:00 70 01/02/18 22:00 81 20 114/63 (80) 99 01/02/18 21:45 99 50 01/02/18 21:00 87 20 127/68 (87) 99 01/02/18 20:00 70 01/02/18 20:00 99 Mechanical Ventilator 50 01/02/18 20:00 50 01/02/18 20:00 85 20 116/62 (80) 99 01/02/18 19:19 98.3 92 20 131/73 (92) 99 01/02/18 17:09 99 50 01/02/18 16:00 91 20 129/67 (87) 99 01/02/18 16:00 50 01/02/18 15:00 88 01/02/18 13:50 50 01/02/18 13:48 100 50 01/02/18 13:30 86 16 159/84 (109) 100 01/02/18 13:15 88 20 170/64 (99) 100 01/02/18 13:00 90 16 160/80 (106) 100 01/02/18 12:30 94 16 147/86 (106) 99 01/02/18 12:20 99.0 85 16 154/79 (104) 99 01/02/18 12:00 84 20 148/80 (102) 99 01/02/18 11:45 84 16 127/70 (89) 100 01/02/18 11:30 84 16 162/67 (98) 99 01/02/18 11:22 100 100 01/02/18 11:15 85 16 110/90 (97) 99 01/02/18 11:00 93 16 92/56 (68) 99 01/02/18 10:40 80 18 203/87 (125) 100 01/02/18 10:30 100 100 01/02/18 10:30 90 24 191/86 (121) 99 01/02/18 10:15 97 16 196/86 (122) 99 01/02/18 10:10 88 16 195/81 (119) 99 01/02/18 10:05 99 16 198/81 (120) 99 01/02/18 10:00 82 16 197/80 (119) 99 01/02/18 10:00 100 01/02/18 10:00 98 01/02/18 09:55 84 26 193/82 (119) 98 01/02/18 09:50 84 24 203/80 (121) 99 I/O 01/02/18 01/02/18 01/02/18 01/03/18 01/03/18 01/03/18 07:00 15:00 23:00 07:00 15:00 23:00 Intake Total 900 ml 200.4 ml 129 ml 1140 ml Output Total 1500 ml 0 ml 600.0 ml 800 ml Balance -600 ml 200.4 ml -471.0 ml 340 ml IV Total 300 ml 200.4 ml Tube Feeding 0 ml 9 ml 540 ml Other 600 ml 120 ml 600 ml Output Urine Total 1500 ml 600 ml 800 ml Tube Feeding Residual Discard 0 ml 0 ml # Bowel Movements 4 0 1 Result Diagram: 01/03/18 0737 01/03/18 0737 Procedures Tracheostomy 05/15/17 PEG 05/16/17 Objective Remarks GENERAL: NAD, A&Ox0 HEAD: Normocephalic. NECK: Supple, trachea midline. No lymphadenopathy. Tracheostomy present. EYES: No scleral icterus. No injection or drainage. CARDIOVASCULAR: Regular rate and rhythm without murmurs, gallops, or rubs. RESPIRATORY: Breath sounds equal bilaterally. No accessory muscle use. GASTROINTESTINAL: Abdomen soft, non-tender, nondistended. MUSCULOSKELETAL: No cyanosis, or edema. SKIN: Warm and dry. NEURO: No focal neurological deficitis. A/P Problem List: (1) CVA (cerebral vascular accident) ICD Code: I63.9 - Cerebral infarction, unspecified Status: Chronic Assessment and Plan 76 y/o female with HTN, DM admitted for DKA and hip fracture s/p large CVA . Patient doing well status post bronchoscopy. Weaning to CPAP. Continue to monitor electrolytes. Continue to monitor blood pressures. 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 No expectations for recovery Expectations are for chronic debility of motor function in cognitive status Overall poor prognosis Daily aspirin continued Sacral decubitus ulcer Continue wound care Calcium Alginate History of urinary retention Catheter as needed Follow urine output Diabetes mellitus type 2 Follow blood sugars Insulin sliding scale Diabetic diet Hypertension Follow blood pressures Continue present treatments Adjust as needed 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
[2018-01-03] MEDS: LACTOBACILLUS ACIDOPHILUS TAB PEG SCH ×2 (10:10→20:21)
[2018-01-03] MEDS: CHOLECALCIFEROL (VIT D3) 5000 UNIT CAP PEG SCH (10:11)
[2018-01-03] MEDS: CHOLESTYRAMINE LIGHT 4 GM PACKAGE PEG SCH ×2 (10:11→20:21)
[2018-01-03] MEDS: CALCIUM/VITAMIN D 250 MG/125 U TAB PEG SCH ×3 (10:11→18:15)
[2018-01-03] MEDS: FUROSEMIDE 40 MG TAB PO SCH ×2 (10:11→18:15)
[2018-01-03] MEDS: CALCIUM POLYCARBOPHIL 625 MG TAB PO SCH ×2 (10:11→20:21)
[2018-01-03] MEDS: ONDANSETRON HCL 4 MG/2 ML VIAL IV PUSH PRN (10:11)
[2018-01-03] MEDS: LISINOPRIL 5 MG TAB PEG SCH (10:12)
[2018-01-03] MEDS: LANSOPRAZOLE SOLUTAB 30 MG TAB NG SCH (10:14)
[2018-01-03] MEDS: LINEZOLID 600 MG TAB PO SCH (10:14)
[2018-01-03] MEDS: INSULIN DETEMIR 100 UNITS/ML VIAL SQ SCH ×2 (12:00→23:45)
[2018-01-03] MEDS: DEXTROSE 50% IN WATER 50 ML VIAL(D50) IV PUSH PRN (14:03)
[2018-01-04] VITALS (24 sets, daily range): BP systolic 137–159; BP diastolic 66–80; PULSE 69–90; RESP 8–26; TEMP 98.6–100.3; O2SAT 89–99
[2018-01-04] MEDS: RESP: ALBUTEROL 2.5 MG/IPRATROPIUM 0.5 MG NEB (SCH) NEB ×4 (03:52→21:23)
[2018-01-04] MEDS: RESP: ACETYLCYSTEINE 20% 30 ML NEB NEB SCH ×4 (03:53→21:23)
[2018-01-04] MEDS: FREE WATER PO SCH ×4 (05:21→23:39)
[2018-01-04] MEDS: hydrALAZINE HCL 10 MG TAB PEG SCH ×3 (05:21→20:32)
[2018-01-04] MEDS: INSULIN NovoLIN REGULAR SUPPLEMENTAL SCALE SQ SCH ×4 (05:39→23:39)
[2018-01-04] MEDS: CALCIUM/VITAMIN D 250 MG/125 U TAB PEG SCH ×3 (09:23→17:29)
[2018-01-04] MEDS: FUROSEMIDE 40 MG TAB PO SCH ×2 (09:23→17:28)
[2018-01-04] MEDS: LACTOBACILLUS ACIDOPHILUS TAB PEG SCH ×2 (09:23→20:32)
[2018-01-04] MEDS: LANSOPRAZOLE SOLUTAB 30 MG TAB NG SCH (09:23)
[2018-01-04] MEDS: ONDANSETRON HCL 4 MG/2 ML VIAL IV PUSH PRN (09:23)
[2018-01-04] MEDS: LISINOPRIL 5 MG TAB PEG SCH (09:24)
[2018-01-04] MEDS: CHOLECALCIFEROL (VIT D3) 5000 UNIT CAP PEG SCH ×2 (09:24→20:32)
[2018-01-04] MEDS: CALCIUM POLYCARBOPHIL 625 MG TAB PO SCH ×2 (09:24→20:33)
[2018-01-04] MEDS: oxyCODONE HCL ORAL CONC 5 MG/0.25 ML SYRINGE PO PRN ×2 (09:24→17:28)
[2018-01-04] MEDS: CHOLESTYRAMINE LIGHT 4 GM PACKAGE PEG SCH ×2 (09:24→20:32)
--- NOTE | 2018-01-04 09:47 | HHI.PR ---
Subjective Remarks Respiratory status shows some intermittent hypoxia and apnea. Follow-up chest x -ray pending. No fevers. Objective Vital Signs Date Time Temp Pulse Resp B/P (MAP) Pulse Ox O2 Delivery O2 Flow Rate FiO2 01/04/18 08:54 99 50 01/04/18 08:00 50 01/04/18 08:00 97 Mechanical Ventilator 2.00 50 T-Piece Humidified 01/04/18 08:00 100.3 89 26 140/68 (92) 99 01/04/18 07:00 77 24 155/76 (102) 89 01/04/18 07:00 71 01/04/18 06:00 79 16 141/70 (93) 99 01/04/18 05:00 89 16 150/71 (97) 99 01/04/18 04:30 99 50 01/04/18 04:00 50 01/04/18 04:00 98.9 72 16 139/67 (91) 99 01/04/18 04:00 72 01/04/18 03:59 99 50 01/04/18 01:02 98 50 01/04/18 00:00 50 01/04/18 00:00 76 16 143/74 (97) 99 01/03/18 23:23 99.2 83 16 128/65 (86) 97 01/03/18 23:00 79 01/03/18 22:00 74 01/03/18 21:49 98 50 01/03/18 21:00 81 01/03/18 21:00 81 16 132/68 (89) 99 01/03/18 20:00 50 01/03/18 20:00 73 16 146/73 (97) 99 01/03/18 20:00 99 Bi-Pap 50 01/03/18 20:00 73 01/03/18 19:37 72 01/03/18 19:25 98.6 77 16 161/82 (108) 99 01/03/18 19:00 20 01/03/18 17:00 85 20 145/78 (100) 99 01/03/18 16:00 50 01/03/18 16:00 84 16 137/72 (93) 99 01/03/18 15:39 100 50 01/03/18 15:00 81 20 150/78 (102) 99 01/03/18 15:00 84 01/03/18 14:00 70 18 124/72 (89) 99 01/03/18 14:00 100 50 01/03/18 13:00 68 18 137/60 (85) 99 01/03/18 12:00 50 01/03/18 12:00 73 20 142/68 (92) 99 01/03/18 11:35 100 50 01/03/18 10:30 79 14 151/77 (101) 99 I/O 01/03/18 01/03/18 01/03/18 01/04/18 01/04/18 01/04/18 07:00 15:00 23:00 07:00 15:00 23:00 Intake Total 1140 ml 1140 ml 1140 ml Output Total 800 ml 0 ml 550.0 ml 500 ml 0 ml Balance 340 ml 0 ml 590.0 ml 640 ml 0 ml Tube Feeding 540 ml 540 ml 540 ml Other 600 ml 600 ml 600 ml Output Urine Total 800 ml 550 ml 500 ml Tube Feeding Residual Discard 0 ml 0 ml 0 ml # Bowel Movements 1 2 1 Result Diagram: 01/03/18 0737 01/03/18 0737 Procedures Tracheostomy 05/15/17 PEG 05/16/17 Objective Remarks GENERAL: NAD, A&Ox0 HEAD: Normocephalic. NECK: Supple, trachea midline. No lymphadenopathy. Tracheostomy present. EYES: No scleral icterus. No injection or drainage. CARDIOVASCULAR: Regular rate and rhythm without murmurs, gallops, or rubs. RESPIRATORY: Breath sounds equal bilaterally. No accessory muscle use. GASTROINTESTINAL: Abdomen soft, non-tender, nondistended. MUSCULOSKELETAL: No cyanosis, or edema. SKIN: Warm and dry. NEURO: No focal neurological deficitis. A/P Problem List: (1) CVA (cerebral vascular accident) ICD Code: I63.9 - Cerebral infarction, unspecified Status: Chronic Assessment and Plan 76 y/o female with HTN, DM admitted for DKA and hip fracture s/p large CVA . Continue CPAP support. Pulmonology following. Chest x-ray ordered and pending. continue to monitor electrolytes. Continue to monitor blood pressures. Continue to monitor renal function. Labs ordered for further monitoring. 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 No expectations for recovery Expectations are for chronic debility of motor function in cognitive status Overall poor prognosis Daily aspirin continued Sacral decubitus ulcer Continue wound care Calcium Alginate History of urinary retention Catheter as needed Follow urine output Diabetes mellitus type 2 Follow blood sugars Insulin sliding scale Diabetic diet Hypertension Follow blood pressures Continue present treatments Adjust as needed 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
--- NOTE | 2018-01-04 12:07 | RADRPT ---
EXAM DATE/TIME: 01/04/2018 11:13 [facility] COMPARISON: CHEST SINGLE AP, December 30, 2017, 13:24. INDICATIONS : Follow up from Bronchoscopy on January 02, 2018. MEDICAL HISTORY : Hypertension. Diabetes mellitus type II. SURGICAL HISTORY : None. ENCOUNTER: Subsequent ACUITY: 4 - 6 days PAIN SCORE: Non-responsive. LOCATION: Bilateral Chest. FINDINGS: Portable AP view of the chest demonstrates a normal-sized cardiac silhouette with calcification of th e aorta. Tracheostomy is present. There are pleural-based opacities bilaterally, right greater than l eft and there is an airspace consolidation versus atelectasis in the right lower lung zone. Stable in terstitial changes are present on the left. No pneumothorax is identified. Bones demonstrate no acute finding. CONCLUSION: 1. Stable chest x-ray with moderate size right pleural effusion with associated volume loss and or ai rspace consolidation. 2. Likely small left pleural effusion with atelectasis at the left base. 3. Bilateral interstitial opacities could represent pulmonary edema in the appropriate clinical setti ng. Obdulio Sam MD on January 04, 2018 at 12:03 Board Certified Radiologist. This report was verified electronically.
[2018-01-04] MEDS: DIPHENOXYLATE/ATROPINE 2.5 MG/0.025 MG/5 ML CUP PO PRN (13:07)
[2018-01-04] MEDS: INSULIN DETEMIR 100 UNITS/ML VIAL SQ SCH ×2 (13:07→23:35)
[2018-01-05] VITALS (15 sets, daily range): BP systolic 152–165; BP diastolic 74–86; PULSE 76–99; RESP 17–20; TEMP 97.8–99.4; O2SAT 95–99
[2018-01-05] MEDS: RESP: ALBUTEROL 2.5 MG/IPRATROPIUM 0.5 MG NEB (SCH) NEB ×4 (04:36→20:08)
[2018-01-05] MEDS: hydrALAZINE HCL 10 MG TAB PEG SCH ×3 (05:46→20:41)
[2018-01-05] MEDS: FREE WATER PO SCH ×3 (05:46→18:12)
[2018-01-05] MEDS: INSULIN NovoLIN REGULAR SUPPLEMENTAL SCALE SQ SCH ×3 (05:46→18:12)
[2018-01-05 08:52] LABS: BASOPHIL # 0.1 TH/MM3 (0-0.2); BASOPHIL % 0.9 % (0.0-2.0); EOSINOPHIL # 0.4 TH/MM3 (0-0.4); EOSINOPHIL % 3.5 % (0.0-4.0); HEMATOCRIT 34.5 % (35.0-46.0); HEMOGLOBIN 11.9 GM/DL (11.6-15.3); LYMPHOCYTE # 1.1 TH/MM3 (1.0-4.8); MEAN CELL VOLUME 91.9 FL (80.0-100.0); MEAN CORPUSCULAR HEMOGLOBIN 31.7 PG (27.0-34.0); MEAN CORPUSCULAR HGB CONC 34.5 % (32.0-36.0); MEAN PLATELET VOLUME 7.1 FL (7.0-11.0); MONO % 6.9 % (0.0-8.0); MONOCYTE # 0.7 TH/MM3 (0-0.9); NEUT % 77.7 % (16.0-70.0); PLATELET COUNT 225 TH/MM3 (150-450); RED BLOOD COUNT 3.76 MIL/MM3 (4.00-5.30); RED CELL DISTRIBUTION WIDTH 15.6 % (11.6-17.2); WHITE BLOOD COUNT 10.3 TH/MM3 (4.0-11.0)
[2018-01-05] MEDS: LISINOPRIL 5 MG TAB PEG SCH (09:25)
[2018-01-05] MEDS: FUROSEMIDE 40 MG TAB PO SCH ×2 (09:25→18:12)
[2018-01-05] MEDS: CHOLESTYRAMINE LIGHT 4 GM PACKAGE PEG SCH ×2 (09:25→20:41)
[2018-01-05] MEDS: CALCIUM/VITAMIN D 250 MG/125 U TAB PEG SCH ×3 (09:26→18:12)
[2018-01-05] MEDS: LACTOBACILLUS ACIDOPHILUS TAB PEG SCH ×2 (09:26→20:41)
[2018-01-05] MEDS: CALCIUM POLYCARBOPHIL 625 MG TAB PO SCH ×2 (09:26→20:41)
[2018-01-05] MEDS: LANSOPRAZOLE SOLUTAB 30 MG TAB NG SCH (09:26)
[2018-01-05 09:27] LABS: ALBUMIN 2.6 GM/DL (3.4-5.0); ALKALINE PHOSPHATASE 174 U/L (45-117); ALT (GPT) 26 U/L (10-53); AST (GOT) 24 U/L (15-37); BICARBONATE 26.7 MEQ/L (21.0-32.0); BLOOD UREA NITROGEN 21 MG/DL (7-18); CALCIUM 9.2 MG/DL (8.5-10.1); CHLORIDE 101 MEQ/L (98-107); GLOMERULAR FILTRATION RATE 120 ML/MIN (>89); GLUCOSE,RANDOM 139 MG/DL (74-106); SODIUM (NA) 136 MEQ/L (136-145); TOTAL BILIRUBIN ADULT 0.3 MG/DL (0.2-1.0); TOTAL PROTEIN 7.1 GM/DL (6.4-8.2)
[2018-01-05] MEDS: DIPHENOXYLATE/ATROPINE 2.5 MG/0.025 MG/5 ML CUP PO PRN (09:48)
--- NOTE | 2018-01-05 11:26 | HHI.PR ---
Subjective Remarks No significant change compared to yesterday. Patient unable to communicate. No signs of pain or distress. Objective Vital Signs Date Time Temp Pulse Resp B/P (MAP) Pulse Ox O2 Delivery O2 Flow Rate FiO2 01/05/18 08:03 98 40 01/05/18 08:00 40 01/05/18 08:00 98 Mechanical Ventilator 40 01/05/18 08:00 99.1 86 20 165/84 (111) 98 01/05/18 04:36 98 40 01/05/18 04:00 97.8 76 17 162/74 (103) 95 01/05/18 04:00 40 01/05/18 00:31 97 40 01/05/18 00:00 40 01/04/18 23:14 98.6 79 17 150/66 (94) 95 01/04/18 23:00 88 01/04/18 21:23 99 40 01/04/18 20:00 99 Mechanical Ventilator 50 01/04/18 20:00 40 01/04/18 20:00 98.8 79 17 137/68 (91) 94 01/04/18 18:28 18 01/04/18 16:00 50 01/04/18 16:00 99.9 75 18 153/74 (100) 98 01/04/18 15:52 98 40 01/04/18 15:00 88 01/04/18 14:00 85 10 143/70 (94) 96 01/04/18 13:00 90 8 142/76 (98) 98 01/04/18 12:30 99 40 01/04/18 12:00 100.2 85 10 151/71 (97) 96 01/04/18 12:00 50 I/O 01/04/18 01/04/18 01/04/18 01/05/18 01/05/18 01/05/18 07:00 15:00 23:00 07:00 15:00 23:00 Intake Total 1140 ml 1140 ml 1000 ml Output Total 500 ml 0 ml 700.0 ml 600 ml 0 ml Balance 640 ml 0 ml 440.0 ml 400 ml 0 ml Tube Feeding 540 ml 540 ml 500 ml Other 600 ml 600 ml 500 ml Output Urine Total 500 ml 700 ml 600 ml Tube Feeding Residual Discard 0 ml 0 ml 0 ml # Voids 3 # Bowel Movements 1 3 2 Result Diagram: 01/05/18 0746 01/05/18 0746 Procedures Tracheostomy 05/15/17 PEG 05/16/17 Objective Remarks GENERAL: NAD, A&Ox0 HEAD: Normocephalic. NECK: Supple, trachea midline. No lymphadenopathy. Tracheostomy present. EYES: No scleral icterus. No injection or drainage. CARDIOVASCULAR: Regular rate and rhythm without murmurs, gallops, or rubs. RESPIRATORY: Breath sounds equal bilaterally. No accessory muscle use. GASTROINTESTINAL: Abdomen soft, non-tender, nondistended. MUSCULOSKELETAL: No cyanosis, or edema. SKIN: Warm and dry. NEURO: No focal neurological deficitis. A/P Problem List: (1) CVA (cerebral vascular accident) ICD Code: I63.9 - Cerebral infarction, unspecified Status: Chronic Assessment and Plan 76 y/o female with HTN, DM admitted for DKA and hip fracture s/p large CVA . Continue respiratory support. Pulmonology following. Chest x-ray ordered shows improvement of obstructive pattern, pleural effusions are present but not likely contributory to her preceding respiratory failure. 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 No expectations for recovery Expectations are for chronic debility of motor function in cognitive status Overall poor prognosis Daily aspirin continued Sacral decubitus ulcer Continue wound care Calcium Alginate History of urinary retention Catheter as needed Follow urine output Diabetes mellitus type 2 Follow blood sugars Insulin sliding scale Diabetic diet Hypertension Follow blood pressures Continue present treatments Adjust as needed 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
[2018-01-05] MEDS: INSULIN DETEMIR 100 UNITS/ML VIAL SQ SCH (11:42)
--- NOTE | 2018-01-05 19:47 | HHI.PR ---
Subjective Remarks No events overnight. Patient is on TP's with 40% FIO2. . Tolerating tube feeds. Tolerates TF to goal rate No fever Moderate amount of thick mucous had bronch, mucous plugs removed BAL Pseudomonas and Serratia On PSV Objective Vital Signs Vital Signs Date Time Temp Pulse Resp B/P (MAP) Pulse Ox O2 Delivery O2 Flow Rate FiO2 01/05/18 16:00 40 01/05/18 16:00 99.4 99 20 152/86 (108) 99 01/05/18 15:30 99 40 01/05/18 15:00 88 01/05/18 14:10 99 40 01/05/18 12:00 98.9 99 19 157/79 (105) 95 01/05/18 12:00 40 01/05/18 10:05 86 01/05/18 08:03 98 40 01/05/18 08:00 40 01/05/18 08:00 98 Mechanical Ventilator 40 01/05/18 08:00 99.1 86 20 165/84 (111) 98 01/05/18 04:36 98 40 01/05/18 04:00 97.8 76 17 162/74 (103) 95 01/05/18 04:00 40 01/05/18 00:31 97 40 01/05/18 00:00 40 01/04/18 23:14 98.6 79 17 150/66 (94) 95 01/04/18 23:00 88 01/04/18 21:23 99 40 01/04/18 20:00 99 Mechanical Ventilator 50 01/04/18 20:00 40 01/04/18 20:00 98.8 79 17 137/68 (91) 94 I/O 01/04/18 01/04/18 01/04/18 01/05/18 01/05/18 01/05/18 07:00 15:00 23:00 07:00 15:00 23:00 Intake Total 1140 ml 1140 ml 1000 ml 1152 ml Output Total 500 ml 0 ml 700.0 ml 600 ml 0 ml 500 ml Balance 640 ml 0 ml 440.0 ml 400 ml 0 ml 652 ml Tube Feeding 540 ml 540 ml 500 ml 552 ml Other 600 ml 600 ml 500 ml 600 ml Output Urine Total 500 ml 700 ml 600 ml 500 ml Tube Feeding Residual Discard 0 ml 0 ml 0 ml # Voids 3 4 # Bowel Movements 1 3 2 4 Result Diagram: 01/05/18 0746 01/05/18 0746 Objective Remarks GENERAL: Elderly female,NAD SKIN: Warm and dry. HEAD: Normocephalic. EYES: No scleral icterus. No injection or drainage. NECK: Supple, trachea midline. No JVD or lymphadenopathy. + trach CARDIOVASCULAR: Regular rate and rhythm without murmurs, gallops, or rubs. RESPIRATORY: Breath sounds equal bilaterally. No accessory muscle use. GASTROINTESTINAL: Abdomen soft, non-tender, nondistended. MUSCULOSKELETAL: No cyanosis, or edema. BACK: Nontender without obvious deformity. No CVA tenderness. A/P Assessment and Plan Chronic resp failure, ,S/P Trach CVA Pneumonia Calcified Granuloma LLL Pseudomonas Tracheobronchitis, PLAN: Vent support Continue with TP's, keep sats >92% Bronchodilators, Pulm toilet, trach care Cont TF GI/DVT prophylaxis Mucomyst Nebs PSV reconsult ID Chris Rizo MD January 05, 2018 19:47
[2018-01-05] MEDS: oxyCODONE HCL ORAL CONC 5 MG/0.25 ML SYRINGE PO PRN (20:42)
[2018-01-06] VITALS (15 sets, daily range): BP systolic 112–161; BP diastolic 50–87; PULSE 82–100; RESP 18–22; TEMP 98.5–100.9; O2SAT 93–99
[2018-01-06] MEDS: INSULIN DETEMIR 100 UNITS/ML VIAL SQ SCH ×2 (00:43→12:40)
[2018-01-06] MEDS: INSULIN NovoLIN REGULAR SUPPLEMENTAL SCALE SQ SCH ×4 (00:44→18:30)
[2018-01-06] MEDS: RESP: ALBUTEROL 2.5 MG/IPRATROPIUM 0.5 MG NEB (SCH) NEB ×4 (03:48→21:14)
[2018-01-06] MEDS: FREE WATER PO SCH ×4 (05:41→18:00)
[2018-01-06] MEDS: hydrALAZINE HCL 10 MG TAB PEG SCH ×3 (06:02→20:57)
[2018-01-06] MEDS: LANSOPRAZOLE SOLUTAB 30 MG TAB NG SCH (08:41)
[2018-01-06] MEDS: DIPHENOXYLATE/ATROPINE 2.5 MG/0.025 MG/5 ML CUP PO PRN (08:41)
[2018-01-06] MEDS: CHOLESTYRAMINE LIGHT 4 GM PACKAGE PEG SCH ×2 (08:41→20:57)
[2018-01-06] MEDS: FUROSEMIDE 40 MG TAB PO SCH ×2 (08:41→19:23)
[2018-01-06] MEDS: LISINOPRIL 5 MG TAB PEG SCH (08:41)
[2018-01-06] MEDS: CALCIUM POLYCARBOPHIL 625 MG TAB PO SCH ×2 (08:41→20:57)
[2018-01-06] MEDS: CALCIUM/VITAMIN D 250 MG/125 U TAB PEG SCH ×3 (08:42→19:23)
[2018-01-06] MEDS: CHOLECALCIFEROL (VIT D3) 5000 UNIT CAP PEG SCH (08:42)
[2018-01-06] MEDS: LACTOBACILLUS ACIDOPHILUS TAB PEG SCH ×2 (08:42→20:57)
--- NOTE | 2018-01-06 16:20 | HHI.PR ---
Subjective Remarks Patient nonverbal. RN reports fevers overnight, Tmax 100.5. No significant sputum/mucus production. BP stable. ID consulted by pulmonology. Objective Vitals Vital Signs Date Time Temp Pulse Resp B/P (MAP) Pulse Ox O2 Delivery O2 Flow Rate FiO2 01/06/18 15:00 84 01/06/18 12:10 99 40 01/06/18 12:00 40 01/06/18 12:00 98.5 86 18 144/58 (86) 99 01/06/18 08:48 99 40 01/06/18 08:00 99 Mechanical Ventilator 40 01/06/18 08:00 100.5 82 20 112/73 (86) 99 01/06/18 08:00 40 01/06/18 07:00 89 01/06/18 04:00 100.0 99 20 145/50 (81) 99 01/06/18 04:00 40 01/06/18 03:48 93 40 01/06/18 00:31 98 40 01/06/18 00:26 100.2 93 20 161/76 (104) 97 01/06/18 00:00 40 01/05/18 23:00 93 01/05/18 20:08 98 40 01/05/18 20:00 40 01/05/18 20:00 95 01/05/18 20:00 94 Mechanical Ventilator 40 01/05/18 19:53 99.0 95 20 152/80 (104) 98 01/05/18 16:00 40 01/05/18 16:00 99.4 99 20 152/86 (108) 99 I/O 01/05/18 01/05/18 01/05/18 01/06/18 01/06/18 01/06/18 07:00 15:00 23:00 07:00 15:00 23:00 Intake Total 1000 ml 1152 ml 1456 ml Output Total 600 ml 0 ml 500.0 ml 1000 ml 0 ml Balance 400 ml 0 ml 652.0 ml 456 ml 0 ml Tube Feeding 500 ml 552 ml 876 ml Other 500 ml 600 ml 580 ml Output Urine Total 600 ml 500 ml 1000 ml Tube Feeding Residual Discard 0 ml 0 ml 0 ml # Voids 3 4 # Bowel Movements 2 4 0 Result Diagram: 01/05/1846 01/05/18 07 Imaging Last 72 hours Impressions Chest X-Ray 01/04/18 0000 Signed Impressions: Service Date/Time: Thursday, January 04, 2018 11:13 - CONCLUSION: 1. Stable chest x-ray with moderate size right pleural effusion with associated volume loss and or airspace consolidation. 2. Likely small left pleural effusion with atelectasis at the left base. 3. Bilateral interstitial opacities could represent pulmonary edema in the appropriate clinical setting. Obdulio Sam MD Objective Remarks GENERAL: Elderly thin female in NAD. SKIN: Warm and dry. HEENT: Normocephalic. No scleral icterus. No injection or drainage. NECK: Trach in place, on T-piece CARDIOVASCULAR: RRR with 1/6 systolic murmur noted. RESPIRATORY: Breath sounds diminished at bilateral bases, otherwise clear. Breath sounds equal bilaterally. GASTROINTESTINAL: Abdomen soft, non-tender, nondistended. EXTREMITIES: Extremities without warmth, erythema, edema. NEUROLOGICAL: Awake. Makes eye contact. Diffuse neurologic deficits following stroke. Nonverbal. Procedures PEG tube trach 05/15/17 and PEG 05/16/17 Medications and IVs Current Medications Medications (Trade) Dose Ordered Sig/Zeferino Route Start Time Stop Time Status Last Admin (Narcan Inj) 0.4 mg UNSCH PRN IV 04/20/17 17:15 (Prevacid Odt) 30 mg DAILY NG 05/08/17 09:00 01/06/18 08:41 (Nitroglycerin 2% Oint) 2 inch Q6H PRN TOPICAL 06/21/17 08:00 06/30/17 14:37 (Pill Splitter) 1 ea UNSCH PRN OTHER 09/05/17 11:00 (Apresoline) 10 mg Q8HR PEG 09/24/17 14:00 01/06/18 14:19 (Norvasc) 10 mg DAILY PEG 10/04/17 09:00 01/06/18 08:41 (Oscal-D 250-125) 250 mg TID PEG 10/03/17 13:00 01/06/18 12:41 (Vitamin D3) 5,000 units DAILY PEG 10/04/17 09:00 01/06/18 08:42 (Catapres) 0.1 mg Q6H PRN PEG 10/03/17 12:30 11/27/17 00:23 (Lactinex) 1 tab Q12HR PEG 10/03/17 21:00 01/06/18 08:42 (Miralax) 17 gm DAILY PRN PEG 10/03/17 12:00 (Beneprotein Powder) 1 pack TID PRN G-TUBE 10/03/17 12:00 (Albuterol Neb) 2.5 mg Q2HR NEB PRN NEB 10/03/17 21:45 01/02/18 03:41 (Tylenol 650 Mg/ 20 ml Liq) 650 mg Q6H PRN PEG 10/26/17 06:45 12/15/17 05:51 (Roxicodone Intensol Liq) 5 mg Q6H PRN PO 10/29/17 11:00 01/05/18 20:42 (D50w (Vial) Inj) 50 ml UNSCH PRN IV PUSH 11/04/17 12:30 01/03/18 14:03 (Glucagon Inj) 1 mg UNSCH PRN OTHER 11/04/17 12:30 (NovoLIN R SUPPLEMENTAL SCALE) 1 Q6H SQ 11/04/17 12:30 01/06/18 12:40 (Prinivil) 5 mg DAILY PEG 11/23/17 09:00 01/06/18 08:41 (Lomotil 2.5-0.025 Mg Liq) 5 ml Q6H PRN PO 11/25/17 13:15 01/06/18 08:41 (Zofran Inj) 4 mg Q6HR PRN IV PUSH 12/08/17 05:00 01/04/18 09:23 (Free Water) 250 ml Q6HR PO 12/13/17 18:00 01/06/18 12:39 (Tears Naturale Opth Soln) 1 drop Q8H PRN EACH EYE 12/19/17 19:30 12/28/17 10:05 (Lomotil 2.5-0.025 Mg Liq) 5 ml Q6H PRN PO 12/22/17 08:30 (Questran Light Pkt) 4 gm BID PEG 12/25/17 09:00 01/06/18 08:41 (Fiber Con) 625 mg Q12HR PO 12/24/17 21:15 01/06/18 08:41 (Lasix) 40 mg BID@ PO 12/26/17 18:00 01/06/18 08:41 (Baciguent Oint) 1 applic Q12HR PRN TOPICAL 12/27/17 08:15 12/28/17 10:05 (Duoneb Neb) 1 ampule Q6HR NEB NEB 01/02/18 16:00 01/06/18 18:00 01/06/18 08:46 (Levemir Inj) 7 units Q12H SQ 01/04/18 00:00 01/06/18 12:40 (Duoneb Neb) 1 ampule Q6HR NEB NEB 01/06/18 22:00 A/P Problem List: (1) Acute ischemic left middle cerebral artery (MCA) stroke ICD Code: I63.512 - Cerebral infarction due to unspecified occlusion or stenosis of left middle cerebral artery Status: Acute (2) Acute respiratory failure ICD Code: J96.00 - Acute respiratory failure, unspecified whether with hypoxia or hypercapnia (3) Right hemiplegia ICD Code: G81.91 - Hemiplegia, unspecified affecting right dominant side Status: Acute (4) Sacral decubitus ulcer ICD Code: L89.159 - Pressure ulcer of sacral region, unspecified stage Status: Chronic (5) HCAP (healthcare-associated pneumonia) ICD Code: J18.9 - Pneumonia, unspecified organism Status: Acute (6) 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 She underwent ORIF on 04/21/17 and on 04/24 a stroke alert was called as she was found to have right hemiparesis with left gaze. She has a poor prognosis based on her lack of overall recovery over the last 6+ months. 01/06 Fever Patient continues to have low grade fevers with Tmax 100.5 overnight CXR 01/04/18 showed stable CXR with moderate size right pleural effusion with assocaited volume loss or airspace consolidation; likely small left pleural effusion; bilateral interstitial opacities Check CBC/BMP, lactic acid in am Reconsulted infectious disease as bronchial washing culture 01/02 positive for multi drug resistant pseudomonas Continue to monitor Chronic Tracheostomy /respiratory failure Pulmonary toilet, trach care Duo nebs q6h Pulm following, appreciate assistance S/p bronchoscopy 01/02 with removal of mucous plugs and bronchial washings done Bronchial washings culture from 01/02 with multi drug resistant, pseudomonas, serratia Urinary retention No leukocytosis U/A with large leuk esterase but many squamous cells Culture with mixed Gram positive dmitry Completed Augmentin 11/07-11/[address] Elevated D-dimer Ordered 10/31 for increasing FiO2 demand Since D-dimer elevated, CTA chest obtained to r/o PE which was negative Likely elevated in light of chronic illness RUE U/S negative for DVT - elevate R arm Left MCA stroke 5.5 mm of [id number]-[id number] subfalcine herniation, diagnosed 04/24. Was not a candidate for thrombolysis at that time. Increasing edema seen on repeat CT 04/28 with a reduction in midline shift on another repeat on 04/30 Neurologic condition remained poor and she underwent trach 05/15/17 and PEG Persistent right-sided hemiparesis. Previously seen by neurology, signed off Previously seen by neurosurgery, signed off Continue daily ASA Hypertension / CHF Amlodipine 10 mg po daily, Doxazosin 1 mg peg daily, hydralazine 10 mg per per peg q8 hours. Clonidine 0.1 mg q6h prn Echo 10/06/17 LVSF EF = 25-30%. Large left pneumothorax Resolved Chest tube placed 05/07, discontinued 05/12/17 Hepatitis C LFTs normalized Negative genotype/viral load Diabetes mellitus SSI Novolin R High-dose scale Levemir insulin 8u Q12 FEN PEG tube feeding with Glucerna 1.5 goal 45 cc/hr, per nutrition recommendations Loose Stools patient has been checked for Cdiff on multiple occasions, most recently 12/21 Cdiff negative continue on lactinex bid, questran bid and monitor for improvement improving DVT prophylaxis Heparin Problem Qualifiers (1) Acute respiratory failure: Qualified Codes: J96.00 - Acute respiratory failure, unspecified whether with hypoxia or hypercapnia (2) Sacral decubitus ulcer: Qualified Codes: L89.152 - Pressure ulcer of sacral region, stage 2 (3) Chronic respiratory failure: Qualified Codes: J96.11 - Chronic respiratory failure with hypoxia Denice Rene PA-C January 06, 2018 4:20 pm
--- NOTE | 2018-01-06 20:04 | HHI.PR ---
Subjective Remarks No events overnight. Patient is on TP's with 40% FIO2. . Tolerating tube feeds. Tolerates TF to goal rate No fever Moderate amount of thick mucous had bronch, mucous plugs removed BAL Pseudomonas and Serratia On PSV No new complaint Objective Vital Signs Vital Signs Date Time Temp Pulse Resp B/P (MAP) Pulse Ox O2 Delivery O2 Flow Rate FiO2 01/06/18 16:27 99 40 01/06/18 15:00 84 01/06/18 12:10 99 40 01/06/18 12:00 40 01/06/18 12:00 98.5 86 18 144/58 (86) 99 01/06/18 08:48 99 40 01/06/18 08:00 99 Mechanical Ventilator 40 01/06/18 08:00 100.5 82 20 112/73 (86) 99 01/06/18 08:00 40 01/06/18 07:00 89 01/06/18 04:00 100.0 99 20 145/50 (81) 99 01/06/18 04:00 40 01/06/18 03:48 93 40 01/06/18 00:31 98 40 01/06/18 00:26 100.2 93 20 161/76 (104) 97 01/06/18 00:00 40 01/05/18 23:00 93 01/05/18 20:08 98 40 I/O 01/05/18 01/05/18 01/05/18 01/06/18 01/06/18 01/06/18 07:00 15:00 23:00 07:00 15:00 23:00 Intake Total 1000 ml 1152 ml 1456 ml Output Total 600 ml 0 ml 500.0 ml 1000 ml 0 ml Balance 400 ml 0 ml 652.0 ml 456 ml 0 ml Tube Feeding 500 ml 552 ml 876 ml Other 500 ml 600 ml 580 ml Output Urine Total 600 ml 500 ml 1000 ml Tube Feeding Residual Discard 0 ml 0 ml 0 ml # Voids 3 4 1 # Bowel Movements 2 4 0 2 Result Diagram: 01/05/18 0746 01/05/18 0746 Objective Remarks GENERAL: Elderly female,NAD SKIN: Warm and dry. HEAD: Normocephalic. EYES: No scleral icterus. No injection or drainage. NECK: Supple, trachea midline. No JVD or lymphadenopathy. + trach CARDIOVASCULAR: Regular rate and rhythm without murmurs, gallops, or rubs. RESPIRATORY: Breath sounds equal bilaterally. No accessory muscle use. GASTROINTESTINAL: Abdomen soft, non-tender, nondistended. MUSCULOSKELETAL: No cyanosis, or edema. BACK: Nontender without obvious deformity. No CVA tenderness. A/P Assessment and Plan Chronic resp failure, ,S/P Trach CVA Pneumonia Calcified Granuloma LLL Pseudomonas Tracheobronchitis, PLAN: Vent support Continue with TP's, keep sats >92% Bronchodilators, Pulm toilet, trach care Cont TF GI/DVT prophylaxis Mucomyst Nebs PSV ID Reconsulted Chris Rizo MD January 06, 2018 20:04
[2018-01-07] VITALS (16 sets, daily range): BP systolic 128–157; BP diastolic 65–89; PULSE 70–99; RESP 16–23; TEMP 98.2–101.4; O2SAT 97–100
[2018-01-07] MEDS: INSULIN NovoLIN REGULAR SUPPLEMENTAL SCALE SQ SCH ×4 (00:30→18:30)
[2018-01-07] MEDS: RESP: ALBUTEROL 2.5 MG/IPRATROPIUM 0.5 MG NEB (SCH) NEB ×4 (03:38→21:39)
[2018-01-07] MEDS: ACETAMINOPHEN 650 MG/20.3 ML UDC PEG PRN (04:56)
[2018-01-07] MEDS: hydrALAZINE HCL 10 MG TAB PEG SCH ×3 (05:54→20:29)
[2018-01-07] MEDS: FREE WATER PO SCH ×4 (06:00→18:00)
[2018-01-07] MEDS: CHOLESTYRAMINE LIGHT 4 GM PACKAGE PEG SCH ×2 (09:05→20:29)
[2018-01-07] MEDS: CHOLECALCIFEROL (VIT D3) 5000 UNIT CAP PEG SCH (09:05)
[2018-01-07] MEDS: LACTOBACILLUS ACIDOPHILUS TAB PEG SCH ×2 (09:05→20:29)
[2018-01-07] MEDS: FUROSEMIDE 40 MG TAB PO SCH ×2 (09:05→17:49)
[2018-01-07] MEDS: LISINOPRIL 5 MG TAB PEG SCH (09:06)
[2018-01-07] MEDS: CALCIUM/VITAMIN D 250 MG/125 U TAB PEG SCH ×3 (09:06→17:49)
[2018-01-07] MEDS: CALCIUM POLYCARBOPHIL 625 MG TAB PO SCH ×2 (09:06→20:29)
[2018-01-07] MEDS: LANSOPRAZOLE SOLUTAB 30 MG TAB NG SCH (09:06)
[2018-01-07 09:17] LABS: AUTOMATED NEUTROPHIL # 13.2 TH/MM3 (1.8-7.7); BASOPHIL # 0.1 TH/MM3 (0-0.2); BASOPHIL % 0.6 % (0.0-2.0); EOSINOPHIL # 0.4 TH/MM3 (0-0.4); EOSINOPHIL % 2.4 % (0.0-4.0); HEMOGLOBIN 10.2 GM/DL (11.6-15.3); LYMPH % 10.4 % (9.0-44.0); LYMPHOCYTE # 1.7 TH/MM3 (1.0-4.8); MEAN CELL VOLUME 91.6 FL (80.0-100.0); MEAN CORPUSCULAR HEMOGLOBIN 31.1 PG (27.0-34.0); MEAN CORPUSCULAR HGB CONC 33.9 % (32.0-36.0); MEAN PLATELET VOLUME 7.6 FL (7.0-11.0); MONO % 6.9 % (0.0-8.0); MONOCYTE # 1.2 TH/MM3 (0-0.9); NEUT % 79.7 % (16.0-70.0); PLATELET COUNT 213 TH/MM3 (150-450); RED BLOOD COUNT 3.28 MIL/MM3 (4.00-5.30); RED CELL DISTRIBUTION WIDTH 15.7 % (11.6-17.2); WHITE BLOOD COUNT 16.6 TH/MM3 (4.0-11.0)
[2018-01-07 09:36] LABS: BICARBONATE 28.4 MEQ/L (21.0-32.0); CALCIUM 9.2 MG/DL (8.5-10.1); CREATININE 0.54 MG/DL (0.50-1.00)
--- NOTE | 2018-01-07 11:10 | HHI.IDPN ---
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 She underwent repair of her fracture, and while in the hospital recovering she had a large left MCA CVA. She has required ventilatory support, and ended up getting a tracheostomy on May 15, and a PEG placement May 16. Patient was successfully weaned from the vent. Her neurological status had some improvement , and she has been awake but only intermittently following commands. Patient has been treated for multiple infections including pneumonia and UTI. She has had infections with MDR, including resistant Pseudomonas as well as VRE. About 2 days ago, she had an episode of vomiting and witnessed aspiration. She has been febrile, and her WBC had gone up to 17,000. Chest x-ray done showed some no infiltrates especially on the right side. She also has required BiPAP. Records reviewed. Patient was last seen December 24, and completed a course of treatment for aspiration pneumonia with gram-negative siomara She finished Zosyn last December 27 and at that time she was doing well on T-piece. About a week ago she started having problem with increasing secretions, very thick, and mucous plugging. She started having some intermittent fevers january 04 She had undergone bronchoscopy January 02 Bronchial cultures grew MDR Pseudomonas, and a sensitive Serratia Her WBC is up to 16,000 She is still febrile She has been back on the vent, and currently on CPAP Has very thick light yellow green secretions Also has a lot of oral secretions Has no Leavitt Has PIV in her left foot Antibiotics Zerbaxa Current Medications Medications (Trade) Dose Ordered Sig/Zeferino Route Start Time Stop Time Status Last Admin (Narcan Inj) 0.4 mg UNSCH PRN IV 04/20/17 17:15 (Prevacid Odt) 30 mg DAILY NG 05/08/17 09:00 01/07/18 09:06 (Nitroglycerin 2% Oint) 2 inch Q6H PRN TOPICAL 06/21/17 08:00 06/30/17 14:37 (Pill Splitter) 1 ea UNSCH PRN OTHER 09/05/17 11:00 (Apresoline) 10 mg Q8HR PEG 09/24/17 14:00 01/07/18 05:54 (Norvasc) 10 mg DAILY PEG 10/04/17 09:00 01/07/18 09:06 (Oscal-D 250-125) 250 mg TID PEG 10/03/17 13:00 01/07/18 09:06 (Vitamin D3) 5,000 units DAILY PEG 10/04/17 09:00 01/07/18 09:05 (Catapres) 0.1 mg Q6H PRN PEG 10/03/17 12:30 11/27/17 00:23 (Lactinex) 1 tab Q12HR PEG 10/03/17 21:00 01/07/18 09:05 (Miralax) 17 gm DAILY PRN PEG 10/03/17 12:00 (Beneprotein Powder) 1 pack TID PRN G-TUBE 10/03/17 12:00 (Albuterol Neb) 2.5 mg Q2HR NEB PRN NEB 10/03/17 21:45 01/02/18 03:41 (Tylenol 650 Mg/ 20 ml Liq) 650 mg Q6H PRN PEG 10/26/17 06:45 01/07/18 04:56 (Roxicodone Intensol Liq) 5 mg Q6H PRN PO 10/29/17 11:00 01/05/18 20:42 (D50w (Vial) Inj) 50 ml UNSCH PRN IV PUSH 11/04/17 12:30 01/03/18 14:03 (Glucagon Inj) 1 mg UNSCH PRN OTHER 11/04/17 12:30 (NovoLIN R SUPPLEMENTAL SCALE) 1 Q6H SQ 11/04/17 12:30 01/07/18 00:30 (Prinivil) 5 mg DAILY PEG 11/23/17 09:00 01/07/18 09:06 (Lomotil 2.5-0.025 Mg Liq) 5 ml Q6H PRN PO 11/25/17 13:15 01/06/18 08:41 (Zofran Inj) 4 mg Q6HR PRN IV PUSH 12/08/17 05:00 01/04/18 09:23 (Free Water) 250 ml Q6HR PO 12/13/17 18:00 01/06/18 12:39 (Tears Naturale Opth Soln) 1 drop Q8H PRN EACH EYE 12/19/17 19:30 12/28/17 10:05 (Lomotil 2.5-0.025 Mg Liq) 5 ml Q6H PRN PO 12/22/17 08:30 (Questran Light Pkt) 4 gm BID PEG 12/25/17 09:00 01/07/18 09:05 (Fiber Con) 625 mg Q12HR PO 12/24/17 21:15 01/07/18 09:06 (Lasix) 40 mg BID@ PO 12/26/17 18:00 01/07/18 09:05 (Baciguent Oint) 1 applic Q12HR PRN TOPICAL 12/27/17 08:15 12/28/17 10:05 (Levemir Inj) 7 units Q12H SQ 01/04/18 00:00 01/07/18 00:00 (Duoneb Neb) 1 ampule Q6HR NEB NEB 01/06/18 22:00 01/07/18 09:50 Ceftolozane/ Tazobactam 1500 mg/Sodium Chloride 100 ml @ 100 mls/hr Q8H IV 01/07/18 12:00 Lines Line sites with no e.o infection. Past Medical History CVA Hypertension Diabetes Past Surgical History S/P trach 05/2017 S/P PEG 05/2017 ORIF L hip Allergies: Coded Allergies: No Known Allergies (Unverified , 04/20/17) Objective . Vital Signs Date Time Temp Pulse Resp B/P (MAP) Pulse Ox O2 Delivery O2 Flow Rate FiO2 01/07/18 08:22 99 40 01/07/18 06:00 79 01/07/18 04:00 101.4 70 16 146/68 (94) 98 01/07/18 03:38 97 40 01/07/18 00:21 98 40 01/07/18 00:00 40 01/07/18 00:00 70 01/07/18 00:00 98.4 99 23 157/89 (111) 98 01/07/18 00:00 40 01/06/18 21:14 98 40 01/06/18 20:00 98 01/06/18 20:00 99.1 91 22 160/78 (105) 97 01/06/18 20:00 40 01/06/18 20:00 98 Mechanical Ventilator 40 5/8/18 16:27 99 40 01/06/18 16:00 99.7 84 20 142/87 (105) 97 01/06/18 16:00 40 01/06/18 15:00 84 01/06/18 12:10 99 40 01/06/18 12:00 40 01/06/18 12:00 98.5 86 18 144/58 (86) 99 . Laboratory Tests Test 01/07/18 08:27 White Blood Count 16.6 TH/MM3 Red Blood Count 3.28 MIL/MM3 Hemoglobin 10.2 GM/DL Hematocrit 30.0 % Mean Corpuscular Volume 91.6 FL Mean Corpuscular Hemoglobin 31.1 PG Mean Corpuscular Hemoglobin Concent 33.9 % Red Cell Distribution Width 15.7 % Platelet Count 213 TH/MM3 Mean Platelet Volume 7.6 FL Neutrophils (%) (Auto) 79.7 % Lymphocytes (%) (Auto) 10.4 % Monocytes (%) (Auto) 6.9 % Eosinophils (%) (Auto) 2.4 % Basophils (%) (Auto) 0.6 % Neutrophils # (Auto) 13.2 TH/MM3 Lymphocytes # (Auto) 1.7 TH/MM3 Monocytes # (Auto) 1.2 TH/MM3 Eosinophils # (Auto) 0.4 TH/MM3 Basophils # (Auto) 0.1 TH/MM3 CBC Comment DIFF FINAL Differential Comment Laboratory Tests Test 01/07/18 08:27 Blood Urea Nitrogen 22 MG/DL Creatinine 0.54 MG/DL Random Glucose 135 MG/DL Calcium Level 9.2 MG/DL Sodium Level 137 MEQ/L Potassium Level 4.4 MEQ/L Chloride Level 100 MEQ/L Carbon Dioxide Level 28.4 MEQ/L Anion Gap 9 MEQ/L Estimat Glomerular Filtration Rate 110 ML/MIN Lactic Acid Level 1.4 mmol/L Microbiology Date/Time Source Procedure Growth Status 01/07/18 08:29 Blood Peripheral Aerobic Blood Culture Pending Received 01/07/18 08:29 Blood Peripheral Anaerobic Blood Culture Pending Received 01/07/18 08:23 Blood Peripheral Aerobic Blood Culture Pending Received 01/07/18 08:23 Blood Peripheral Anaerobic Blood Culture Pending Received Imaging Last Impressions Chest X-Ray 12/21/17 0600 Signed Impressions: Service Date/Time: Thursday, December 21, 2017 05:51 - CONCLUSION: Some improvement in the infiltrates bilaterally. Deangelo Wren Jr., MD Upper Extremity Ultrasound 11/04/17 0000 Signed Impressions: Service Date/Time: Saturday, November 04, 2017 09:57 - CONCLUSION: No thrombus observed. Subcutaneous edema noted. Deangelo Wren Jr., MD Abdomen X-Ray 11/04/17 0000 Signed Impressions: Service Date/Time: Saturday, November 04, 2017 11:58 - CONCLUSION: Gaseous distention of bowel loops could be ileus but unchanged. Benja Ramsey MD CT Angiography 11/01/17 0000 Signed Impressions: Service Date/Time: Wednesday, November 01, 2017 16:47 - CONCLUSION: No evidence for pulmonary embolism. Please see above. Choco Mustafa MD Thoracentesis 08/05/17 1535 Signed Impressions: Service Date/Time: Saturday, August 05, 2017 16:08 - CONCLUSION: Uncomplicated CT-guided thoracentesis. Sage Adler MD Chest Ultrasound 08/02/17 0000 Signed Impressions: Service Date/Time: Tuesday, August 01, 2017 22:06 - CONCLUSION: 1. Moderate right pleural effusion, as above. Alejo De La Vega MD Hip and Pelvis X-Ray 07/09/17 0000 Signed Impressions: Service Date/Time: Sunday, July 09, 2017 14:04 - CONCLUSION: Anatomic alignment. Ricardo Middleton MD FACR Liver Ultrasound 06/19/17 0000 Signed Impressions: Service Date/Time: June 13:20 - CONCLUSION: 1. Mildly increased echotexture of the liver characteristic of hepatic steatosis. 2. Gallbladder sludge. Obdulio Sam MD Head CT 05/15/17 0000 Signed Impressions: Service Date/Time: May 19:59 - CONCLUSION: 1. 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 2. No bleed or new/acute infarct. Obdulio Simms MD Gall Bladder Ultrasound 05/08/17 0000 Signed Impressions: Service Date/Time: May 08:23 - CONCLUSION: Focally unremarkable appearance of the gallbladder Obdulio Chun MD Abdomen/Pelvis CT 05/07/17 0000 Signed Impressions: Service Date/Time: Sunday, May 07, 2017 13:23 - CONCLUSION: 1. Large left pneumothorax. 2. Bilateral lower lobe consolidation and bilateral moderate size pleural effusions. 3. Significant soft tissue thickening of the right lateral chest wall and left gluteus muscle. 4. Mild ascites. The findings were called to Dr. Carney. Deangelo Zamora MD Chest CT 04/30/17 0000 Signed Impressions: Service Date/Time: Sunday, April 30, 2017 09:20 - CONCLUSION: 1. Bilateral pulmonary infiltrates more pronounced within the lower lobes with tiny bilateral pleural effusions. Material seen filling the lower lobe bronchi bilaterally either related to purulent material or perhaps mucus plugging. Deangelo Wren Jr., MD Carotid Artery Ultrasound 04/24/17 0000 Signed Impressions: Service Date/Time: April 09:45 - CONCLUSION: 1. No hemodynamically significant carotid artery stenosis. Arnie Middleton MD Hip X-Ray 04/21/17 0000 Signed Impressions: Service Date/Time: Friday, April 21, 2017 11:36 - CONCLUSION: Fluoroscopic images during placement of intramedullary siomara left femur. Benja Ramsey MD Physical Exam GENERAL: Awake, focusing, but not following, looks comfortable on CPAP SKIN: Warm and dry. No generalized rash, no ecchymoses and no evidence of embolic lesions. HEAD: Atraumatic. Normocephalic. No temporal wasting, or tenderness. EYES: [place] conjunctiva. No petechia or hemorrhage. Pupils equal, round and reactive to light. No scleral icterus. No injection or drainage. EARS, NOSE AND THROAT: Nose without bleeding or purulent nasal discharge. No sinus tenderness. Mucous membranes pink and moist. NECK: Trachea midline. Trach site ok. Supple and not tender, no meningeal signs CARDIOVASCULAR: Regular rate and rhythm. Soft heart sounds. RESPIRATORY: has bilateral rhonchi worse on R than L. Decreased breath sounds at the bases ABDOMEN: Soft, mildly distended, some grimacing during palpation. Bowel sounds present and normoactive. PEG site ok EXTREMITIES: No clubbing, cyanosis, or edema. Well perfused and warm. NEUROLOGICAL: Awake and focusing. Not following. 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 Fracture L hip S/P ORIF RECOMMENDATION Change to Zosyn Add Colistin nebs repeat CXR Follow new C/S - has BC and UC Follow temps Follow CBC Monitor progress Nelly Michaud MD January 07, 2018 11:10
[2018-01-07] MEDS ORDERED: PIPERACIL-TAZO 4.5 GM PREMIX 100 ML IV SCH (12:00)
[2018-01-07] MEDS ORDERED: CEFTOLOZANE-TAZOBACTAM INJ 1,500 MG in SODIUM CHLORIDE 0.9% INJ 100 ML IV SCH (12:00)
[2018-01-07] MEDS: INSULIN DETEMIR 100 UNITS/ML VIAL SQ SCH ×2 (12:00)
[2018-01-07] MEDS: RESP: COLISTIN 150 MG VIAL NEB SCH ×3 (12:00→22:14)
[2018-01-07] MEDS: PIPERACIL-TAZO 4.5 GM PREMIX 100 ML IV SCH ×2 (14:00→21:45)
[2018-01-07] MEDS: RESP: ALBUTEROL 2.5 MG/3 ML NEB (PRN) NEB (14:05)
--- NOTE | 2018-01-07 14:55 | HHI.PR ---
Subjective Remarks Follow up for fever, pneumonia. Patient nonverbal. Discussed with RN. Still having intermittent fevers overnight, Tmax 101.4. Started on IV antibiotics. No other acute issues reported by RN. Objective Vitals Vital Signs Date Time Temp Pulse Resp B/P (MAP) Pulse Ox O2 Delivery O2 Flow Rate FiO2 01/07/18 13:55 100 40 01/07/18 12:00 99.3 82 16 128/65 (86) 99 01/07/18 08:22 99 40 01/07/18 08:00 98.2 78 16 144/69 (94) 99 01/07/18 06:00 79 01/07/18 04:00 101.4 70 16 146/68 (94) 98 01/07/18 03:38 97 40 01/07/18 00:21 98 40 01/07/18 00:00 40 01/07/18 00:00 70 01/07/18 00:00 98.4 99 23 157/89 (111) 98 01/07/18 00:00 40 01/06/18 21:14 98 40 01/06/18 20:00 98 01/06/18 20:00 99.1 91 22 160/78 (105) 97 01/06/18 20:00 40 01/06/18 20:00 98 Mechanical Ventilator 40 01/06/18 16:27 99 40 01/06/18 16:00 99.7 84 20 142/87 (105) 97 01/06/18 16:00 40 01/06/18 15:00 84 I/O 01/06/18 01/06/18 01/06/18 01/07/18 01/07/18 01/07/18 07:00 15:00 23:00 07:00 15:00 23:00 Intake Total 1456 ml Output Total 1000 ml 0 ml Balance 456 ml 0 ml Tube Feeding 876 ml Other 580 ml Output Urine Total 1000 ml Tube Feeding Residual Discard 0 ml # Voids 1 # Bowel Movements 0 2 Result Diagram: 01/07/1882601/07/18826 Objective Remarks GENERAL: Elderly thin female in NAD. SKIN: Warm and dry. HEENT: Normocephalic. No scleral icterus. No injection or drainage. NECK: Trach in place, on T-piece CARDIOVASCULAR: RRR with 1/6 systolic murmur noted. RESPIRATORY: Scattered rhonchi with decreased breath sounds at bilateral bases. Breath sounds equal bilaterally. GASTROINTESTINAL: Abdomen soft, non-tender, nondistended. PEG in place. EXTREMITIES: Extremities without warmth, erythema, edema. NEUROLOGICAL: Awake. Makes eye contact. Diffuse neurologic deficits following stroke. Nonverbal. Procedures PEG tube trach 05/15/17 and PEG 05/16/17 Medications and IVs Current Medications Medications (Trade) Dose Ordered Sig/Zeferino Route Start Time Stop Time Status Last Admin (Narcan Inj) 0.4 mg UNSCH PRN IV 04/20/17 17:15 (Prevacid Odt) 30 mg DAILY NG 05/08/17 09:00 01/07/18 09:06 (Nitroglycerin 2% Oint) 2 inch Q6H PRN TOPICAL 06/21/17 08:00 06/30/17 14:37 (Pill Splitter) 1 ea UNSCH PRN OTHER 09/05/17 11:00 (Apresoline) 10 mg Q8HR PEG 09/24/17 14:00 01/07/18 13:33 (Norvasc) 10 mg DAILY PEG 10/04/17 09:00 01/07/18 09:06 (Oscal-D 250-125) 250 mg TID PEG 10/03/17 13:00 01/07/18 13:33 (Vitamin D3) 5,000 units DAILY PEG 10/04/17 09:00 01/07/18 09:05 (Catapres) 0.1 mg Q6H PRN PEG 10/03/17 12:30 11/27/17 00:23 (Lactinex) 1 tab Q12HR PEG 10/03/17 21:00 01/07/18 09:05 (Miralax) 17 gm DAILY PRN PEG 10/03/17 12:00 (Beneprotein Powder) 1 pack TID PRN G-TUBE 10/03/17 12:00 (Albuterol Neb) 2.5 mg Q2HR NEB PRN NEB 10/03/17 21:45 01/07/18 14:05 (Tylenol 650 Mg/ 20 ml Liq) 650 mg Q6H PRN PEG 10/26/17 06:45 01/07/18 04:56 (Roxicodone Intensol Liq) 5 mg Q6H PRN PO 10/29/17 11:00 5/7/18 20:42 (D50w (Vial) Inj) 50 ml UNSCH PRN IV PUSH 11/04/17 12:30 01/03/18 14:03 (Glucagon Inj) 1 mg UNSCH PRN OTHER 11/04/17 12:30 (NovoLIN R SUPPLEMENTAL SCALE) 1 Q6H SQ 11/04/17 12:30 01/07/18 00:30 (Prinivil) 5 mg DAILY PEG 11/23/17 09:00 01/07/18 09:06 (Lomotil 2.5-0.025 Mg Liq) 5 ml Q6H PRN PO 11/25/17 13:15 01/06/18 08:41 (Zofran Inj) 4 mg Q6HR PRN IV PUSH 12/08/17 05:00 01/04/18 09:23 (Free Water) 250 ml Q6HR PO 12/13/17 18:00 01/07/18 12:00 (Tears Naturale Opth Soln) 1 drop Q8H PRN EACH EYE 12/19/17 19:30 12/28/17 10:05 (Lomotil 2.5-0.025 Mg Liq) 5 ml Q6H PRN PO 12/22/17 08:30 (Questran Light Pkt) 4 gm BID PEG 12/25/17 09:00 01/07/18 09:05 (Fiber Con) 625 mg Q12HR PO 12/24/17 21:15 01/07/18 09:06 (Lasix) 40 mg BID@,18 PO 12/26/17 18:00 01/07/18 09:05 (Baciguent Oint) 1 applic Q12HR PRN TOPICAL 12/27/17 08:15 12/28/17 10:05 (Levemir Inj) 7 units Q12H SQ 01/04/18 00:00 01/07/18 12:00 (Duoneb Neb) 1 ampule Q6HR NEB NEB 01/06/18 22:00 01/07/18 15:34 (Coly-Mycin M Neb) 75 mg BID NEB NEB 01/07/18 12:00 01/07/18 14:05 Piperacillin Sod/ Tazobactam Sod 100 ml @ 200 mls/hr Q6H IV 01/07/18 14:00 A/P Problem List: (1) Acute ischemic left middle cerebral artery (MCA) stroke ICD Code: I63.512 - Cerebral infarction due to unspecified occlusion or stenosis of left middle cerebral artery Status: Acute (2) Acute respiratory failure ICD Code: J96.00 - Acute respiratory failure, unspecified whether with hypoxia or hypercapnia (3) Right hemiplegia ICD Code: G81.91 - Hemiplegia, unspecified affecting right dominant side Status: Acute (4) Sacral decubitus ulcer ICD Code: L89.159 - Pressure ulcer of sacral region, unspecified stage Status: Chronic (5) HCAP (healthcare-associated pneumonia) ICD Code: J18.9 - Pneumonia, unspecified organism Status: Acute (6) 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 She underwent ORIF on 04/21/17 and on 04/24 a stroke alert was called as she was found to have right hemiparesis with left gaze. She has a poor prognosis based on her lack of overall recovery over the last 6+ months. 01/07 Sepsis with Recurrent Hospital Acquired/Ventilator Associated Pneumonia: patient with +fever Tmax 101.4, leukocytosis WBC 16.6K, tachycardia HR 99. Lactic Acid 1.4. CXR 01/04/18 showed stable CXR with moderate size right pleural effusion with associated volume loss or airspace consolidation; likely small left pleural effusion; bilateral interstitial opacities Patient continued to spike fevers, Repeat CBC 01/07 shows worsening leukocytosis WBC 16K Reconsulted infectious disease as bronchial washing culture 01/02 positive for multi drug resistant pseudomonas Initially started on IV Zerbaxa, now changed to IV Zosyn per ID Blood cultures collected and pending Repeat sputum culture Repeat CXR and CBC in am Chronic Tracheostomy /respiratory failure Pulmonary toilet, trach care Duo nebs q6h Pulm following, appreciate assistance S/p bronchoscopy 01/02 with removal of mucous plugs and bronchial washings done Bronchial washings culture from 01/02 with multi drug resistant, pseudomonas, serratia Urinary retention No leukocytosis U/A with large leuk esterase but many squamous cells Culture with mixed Gram positive dmitry Completed Augmentin 11/07-11/[address] Elevated D-dimer Ordered 10/31 for increasing FiO2 demand Since D-dimer elevated, CTA chest obtained to r/o PE which was negative Likely elevated in light of chronic illness RUE U/S negative for DVT - elevate R arm Left MCA stroke 5.5 mm of [id number] subfalcine herniation, diagnosed 04/24. Was not a candidate for thrombolysis at that time. Increasing edema seen on repeat CT 04/28 with a reduction in midline shift on another repeat on 04/30 Neurologic condition remained poor and she underwent trach 05/15/17 and PEG Persistent right-sided hemiparesis. Previously seen by neurology, signed off Previously seen by neurosurgery, signed off Continue daily ASA Hypertension / CHF Amlodipine 10 mg po daily, Doxazosin 1 mg peg daily, hydralazine 10 mg per per peg q8 hours. Clonidine 0.1 mg q6h prn Echo 10/06/17 LVSF EF = 25-30%. Large left pneumothorax Resolved Chest tube placed 05/07, discontinued 05/12/17 Hepatitis C LFTs normalized Negative genotype/viral load Diabetes mellitus SSI Novolin R High-dose scale Levemir insulin 8u Q12 FEN PEG tube feeding with Glucerna 1.5 goal 45 cc/hr, per nutrition recommendations Loose Stools patient has been checked for Cdiff on multiple occasions, most recently 12/21 Cdiff negative continue on lactinex bid, questran bid and monitor for improvement improving DVT prophylaxis Heparin Problem Qualifiers (1) Acute respiratory failure: Qualified Codes: J96.00 - Acute respiratory failure, unspecified whether with hypoxia or hypercapnia (2) Sacral decubitus ulcer: Qualified Codes: L89.152 - Pressure ulcer of sacral region, stage 2 (3) Chronic respiratory failure: Qualified Codes: J96.11 - Chronic respiratory failure with hypoxia Denice Rene PA-C January 07, 2018 2:55 pm
--- NOTE | 2018-01-07 20:19 | HHI.PR ---
Subjective Remarks No events overnight. Patient is on TP's with 40% FIO2. . Tolerating tube feeds. Tolerates TF to goal rate No fever Moderate amount of thick mucous had bronch, mucous plugs removed On PSV Leticia ID, On Zosyn and colistin Nebs Objective Vital Signs Vital Signs Date Time Temp Pulse Resp B/P (MAP) Pulse Ox O2 Delivery O2 Flow Rate FiO2 01/07/18 16:00 98.4 98 16 138/70 (92) 100 01/07/18 16:00 40 01/07/18 15:34 99 40 01/07/18 15:00 80 01/07/18 13:55 100 40 01/07/18 12:00 40 01/07/18 12:00 99.3 82 16 128/65 (86) 99 01/07/18 08:22 99 40 01/07/18 08:00 98.2 78 16 144/69 (94) 99 01/07/18 08:00 Mechanical Ventilator 2.00 40 01/07/18 08:00 40 01/07/18 07:00 80 01/07/18 06:00 79 01/07/18 04:00 101.4 70 16 146/68 (94) 98 01/07/18 03:38 97 40 01/07/18 00:21 98 40 01/07/18 00:00 40 01/07/18 00:00 70 01/07/18 00:00 98.4 99 23 157/89 (111) 98 01/07/18 00:00 40 01/06/18 21:14 98 40 I/O 01/06/18 01/06/18 01/06/18 01/07/18 01/07/18 01/07/18 07:00 15:00 23:00 07:00 15:00 23:00 Intake Total 1456 ml Output Total 1000 ml 0 ml 550 ml Balance 456 ml 0 ml -550 ml Tube Feeding 876 ml Other 580 ml Output Urine Total 1000 ml 550 ml Tube Feeding Residual Discard 0 ml # Voids 1 # Bowel Movements 0 2 1 Result Diagram: 01/07/1882601/07/18826 Objective Remarks GENERAL: Elderly female,NAD SKIN: Warm and dry. HEAD: Normocephalic. EYES: No scleral icterus. No injection or drainage. NECK: Supple, trachea midline. No JVD or lymphadenopathy. + trach CARDIOVASCULAR: Regular rate and rhythm without murmurs, gallops, or rubs. RESPIRATORY: Breath sounds equal bilaterally. No accessory muscle use. GASTROINTESTINAL: Abdomen soft, non-tender, nondistended. MUSCULOSKELETAL: No cyanosis, or edema. BACK: Nontender without obvious deformity. No CVA tenderness. A/P Assessment and Plan Chronic resp failure, ,S/P Trach CVA Pneumonia Calcified Granuloma LLL Pseudomonas Tracheobronchitis, PLAN: Vent support Continue with TP's, keep sats >92% Bronchodilators, Pulm toilet, trach care Cont TF GI/DVT prophylaxis Mucomyst Nebs PSV IV Zosyn Colistin Nebs Chris Rizo MD January 07, 2018 20:19
[2018-01-08] VITALS (17 sets, daily range): BP systolic 121–152; BP diastolic 55–82; PULSE 60–98; RESP 16–22; TEMP 98.1–101; O2SAT 94–99
[2018-01-08] MEDS: INSULIN NovoLIN REGULAR SUPPLEMENTAL SCALE SQ SCH ×4 (00:30→18:30)
[2018-01-08] MEDS: ACETAMINOPHEN 650 MG/20.3 ML UDC PEG PRN (00:48)
[2018-01-08] MEDS: INSULIN DETEMIR 100 UNITS/ML VIAL SQ SCH ×2 (00:48→13:27)
[2018-01-08] MEDS: PIPERACIL-TAZO 4.5 GM PREMIX 100 ML IV SCH ×4 (02:18→19:28)
[2018-01-08] MEDS: RESP: ALBUTEROL 2.5 MG/IPRATROPIUM 0.5 MG NEB (SCH) NEB ×4 (04:00→21:55)
--- NOTE | 2018-01-08 04:38 | RADRPT ---
EXAM DATE/TIME: 01/08/2018 03:37 [place] COMPARISON: CHEST SINGLE AP, January 04, 2018, 11:13. INDICATIONS : Shortness of breath, possible pulmonary disease. MEDICAL HISTORY : Hypertension. Diabetes mellitus type II. SURGICAL HISTORY : None. ENCOUNTER: Subsequent ACUITY: 1 week PAIN SCORE: Non-responsive. LOCATION: Bilateral chest FINDINGS: A single AP semierect view of the chest was obtained and again demonstrates endotracheal tube in plac e. Airspace disease remains in both lungs right greater than left. The right costophrenic angle remai ns blunted consistent with effusion. There is mild cardiomegaly. Multiple overlying electrocardiogram leads are present. Thereafter adult education professional changes in the aorta. CONCLUSION: No significant change. Right pleural effusion with bilateral airspace disease right g reater than left. Jose R Casanova MD on January 08, 2018 at 4:35 Board Certified Radiologist. This report was verified electronically.
[2018-01-08] MEDS: FREE WATER PO SCH ×5 (05:20→23:09)
[2018-01-08] MEDS: hydrALAZINE HCL 10 MG TAB PEG SCH ×3 (05:32→22:18)
[2018-01-08] MEDS: RESP: COLISTIN 150 MG VIAL NEB SCH ×2 (08:00→22:16)
[2018-01-08 08:50] LABS: AUTOMATED NEUTROPHIL # 7.9 TH/MM3 (1.8-7.7); BASOPHIL # 0.1 TH/MM3 (0-0.2); BASOPHIL % 1.4 % (0.0-2.0); EOSINOPHIL # 0.6 TH/MM3 (0-0.4); EOSINOPHIL % 5.5 % (0.0-4.0); HEMOGLOBIN 9.9 GM/DL (11.6-15.3); LYMPH % 12.2 % (9.0-44.0); LYMPHOCYTE # 1.3 TH/MM3 (1.0-4.8); MEAN CORPUSCULAR HEMOGLOBIN 31.9 PG (27.0-34.0); MEAN CORPUSCULAR HGB CONC 34.3 % (32.0-36.0); MONO % 8.7 % (0.0-8.0); MONOCYTE # 0.9 TH/MM3 (0-0.9); NEUT % 72.2 % (16.0-70.0); PLATELET COUNT 213 TH/MM3 (150-450); RED BLOOD COUNT 3.12 MIL/MM3 (4.00-5.30); RED CELL DISTRIBUTION WIDTH 15.5 % (11.6-17.2); WHITE BLOOD COUNT 10.9 TH/MM3 (4.0-11.0)
[2018-01-08] MEDS: CHOLECALCIFEROL (VIT D3) 5000 UNIT CAP PEG SCH (09:02)
[2018-01-08] MEDS: LANSOPRAZOLE SOLUTAB 30 MG TAB NG SCH (09:02)
[2018-01-08] MEDS: FUROSEMIDE 40 MG TAB PO SCH ×2 (09:02→17:11)
[2018-01-08] MEDS: CHOLESTYRAMINE LIGHT 4 GM PACKAGE PEG SCH ×2 (09:02→20:23)
[2018-01-08] MEDS: CALCIUM POLYCARBOPHIL 625 MG TAB PO SCH ×2 (09:03→20:23)
[2018-01-08] MEDS: CALCIUM/VITAMIN D 250 MG/125 U TAB PEG SCH ×3 (09:03→17:11)
[2018-01-08] MEDS: LACTOBACILLUS ACIDOPHILUS TAB PEG SCH ×2 (09:03→20:23)
[2018-01-08] MEDS: LISINOPRIL 5 MG TAB PEG SCH (09:03)
--- NOTE | 2018-01-08 14:46 | HHI.PR ---
Subjective Remarks Did not follow directions. Objective Vitals Vital Signs Date Time Temp Pulse Resp B/P (MAP) Pulse Ox O2 Delivery O2 Flow Rate FiO2 01/08/18 11:00 99 40 01/08/18 08:38 98 40 01/08/18 07:00 80 01/08/18 06:00 40 01/08/18 04:10 98 40 01/08/18 04:00 98.8 71 16 121/58 (79) 99 01/08/18 01:07 98 40 01/08/18 00:00 101.0 80 16 126/63 (84) 99 01/08/18 00:00 40 01/07/18 23:00 78 01/07/18 21:46 98 40 01/07/18 20:00 Mechanical Ventilator 40 01/07/18 20:00 40 01/07/18 20:00 99.7 89 16 151/67 (95) 97 01/07/18 16:00 98.4 98 16 138/70 (92) 100 01/07/18 16:00 40 01/07/18 15:34 99 40 01/07/18 15:00 80 I/O 01/07/18 01/07/18 01/07/18 01/08/18 01/08/18 01/08/18 07:00 15:00 23:00 07:00 15:00 23:00 Intake Total 1446 ml Output Total 550 ml 850 ml Balance -550 ml 596 ml Intake Oral 0 ml Tube Feeding 866 ml Other 580 ml Output Urine Total 550 ml 850 ml # Bowel Movements 1 1 Result Diagram: 01/08/18 0830 01/07/18 0827 Objective Remarks GENERAL: This is a well-nourished, well-developed patient, in no apparent distress. Trach in place CARDIOVASCULAR: Regular rate and rhythm without murmurs, gallops, or rubs. RESPIRATORY: bilaterally coarse breath sounds. N GASTROINTESTINAL: Abdomen soft, non-tender, nondistended. Normal active bowel sounds Procedures PEG tube trach 05/15/17 and PEG 05/16/17 A/P Problem List: (1) Acute ischemic left middle cerebral artery (MCA) stroke ICD Code: I63.512 - Cerebral infarction due to unspecified occlusion or stenosis of left middle cerebral artery Status: Acute (2) Acute respiratory failure ICD Code: J96.00 - Acute respiratory failure, unspecified whether with hypoxia or hypercapnia Status: Resolved (3) Right hemiplegia ICD Code: G81.91 - Hemiplegia, unspecified affecting right dominant side Status: Acute (4) Sacral decubitus ulcer ICD Code: L89.159 - Pressure ulcer of sacral region, unspecified stage Status: Chronic (5) HCAP (healthcare-associated pneumonia) ICD Code: J18.9 - Pneumonia, unspecified organism Status: Acute (6) 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 She underwent ORIF on 04/21/17 and on 04/24 a stroke alert was called as she was found to have right hemiparesis with left gaze. She has a poor prognosis based on her lack of overall recovery over the last 6+ months. 01/07 Sepsis with Recurrent Hospital Acquired/Ventilator Associated Pneumonia: patient with previous +fever Tmax 101.0, leukocytosis WBC Trended down and improved after antibiotics started, CXR 01/04/18 showed stable CXR with moderate size right pleural effusion with associated volume loss or airspace consolidation; likely small left pleural effusion; bilateral interstitial opacities; repeat chest x-ray today showed stable unchanged. Patient continued to spike fevers, Reconsulted infectious disease as bronchial washing culture 01/02 positive for multi drug resistant pseudomonas Initially started on IV Zerbaxa, now changed to IV Zosyn per ID Blood cultures collected and pending Repeat sputum culture Repeat CXR and CBC in am Chronic Tracheostomy /respiratory failure Pulmonary toilet, trach care Duo nebs q6h Pulmonary following, appreciate assistance S/p bronchoscopy 01/02 with removal of mucous plugs and bronchial washings done Bronchial washings culture from 01/02 with multi drug resistant, pseudomonas, serratia Urinary retention- resolved No leukocytosis U/A with large leuk esterase but many squamous cells Culture with mixed Gram positive dmitry Completed Augmentin 11/07-11/14 Leavtit removed. Previous level elevated D-dimer Ordered on 10/31 for increasing FiO2 demand Since D-dimer elevated, CTA chest obtained to r/o PE which was negative Likely elevated in light of chronic illness RUE U/S negative for DVT - elevate R arm Left MCA stroke 5.5 mm of nehb-is-bpihm subfalcine herniation, diagnosed 04/24. Was not a candidate for thrombolysis at that time. Increasing edema seen on repeat CT 04/28 with a reduction in midline shift on another repeat on 04/30 Neurologic condition remained poor and she underwent trach 05/15/17 and PEG Persistent right-sided hemiparesis. Previously seen by neurology, signed off Previously seen by neurosurgery, signed off Continue daily ASA Hypertension / CHF Amlodipine 10 mg po daily, Doxazosin 1 mg peg daily, hydralazine 10 mg per per peg q8 hours. Clonidine 0.1 mg q6h prn Echo 10/06/17 LVSF EF = 25-30%. Large left pneumothorax Resolved Chest tube placed 05/07, discontinued 05/12/17 Hepatitis C LFTs normalized Negative genotype/viral load Diabetes mellitus -overall adequately controlled. SSI Novolin R High-dose scale Levemir insulin 8u Q12 FEN PEG tube feeding with Glucerna 1.5 goal 45 cc/hr, per nutrition recommendations Loose Stools - improved patient has been checked for Cdiff on multiple occasions, most recently 12/21 Cdiff negative continue on lactinex bid, questran bid and monitor for improvement improving DVT prophylaxis Heparin Discharge Planning Difficult placement Problem Qualifiers (1) Acute respiratory failure: Qualified Codes: J96.00 - Acute respiratory failure, unspecified whether with hypoxia or hypercapnia (2) Sacral decubitus ulcer: Qualified Codes: L89.152 - Pressure ulcer of sacral region, stage 2 (3) Chronic respiratory failure: Qualified Codes: J96.11 - Chronic respiratory failure with hypoxia Kassie Lopez MD January 08, 2018 14:45
--- NOTE | 2018-01-08 15:51 | HHI.PR ---
Subjective Remarks No events overnight. Patient is on TP's with 40% FIO2. . Tolerating tube feeds. Tolerates TF to goal rate No fever Moderate amount of thick mucous had bronch, mucous plugs removed On PSV 13/01 Leticia ID, On Zosyn and colistin Nebs Objective Vital Signs Vital Signs Date Time Temp Pulse Resp B/P (MAP) Pulse Ox O2 Delivery O2 Flow Rate FiO2 01/08/18 15:40 96 40 01/08/18 15:00 90 01/08/18 12:00 98.1 93 22 152/81 (104) 98 01/08/18 12:00 40 01/08/18 11:00 99 40 01/08/18 08:38 98 40 01/08/18 08:00 99.2 80 20 128/55 (79) 97 01/08/18 08:00 Mechanical Ventilator 2.00 40 01/08/18 08:00 40 01/08/18 07:00 80 01/08/18 06:00 40 01/08/18 04:10 98 40 01/08/18 04:00 98.8 71 16 121/58 (79) 99 01/08/18 01:07 98 40 01/08/18 00:00 101.0 80 16 126/63 (84) 99 01/08/18 00:00 40 01/07/18 23:00 78 01/07/18 21:46 98 40 01/07/18 20:00 Mechanical Ventilator 40 01/07/18 20:00 40 01/07/18 20:00 99.7 89 16 151/67 (95) 97 01/07/18 16:00 98.4 98 16 138/70 (92) 100 01/07/18 16:00 40 I/O 01/07/18 01/07/18 01/07/18 01/08/18 01/08/18 01/08/18 07:00 15:00 23:00 07:00 15:00 23:00 Intake Total 1446 ml Output Total 550 ml 850 ml Balance -550 ml 596 ml Intake Oral 0 ml Tube Feeding 866 ml Other 580 ml Output Urine Total 550 ml 850 ml # Bowel Movements 1 1 Result Diagram: 01/08/18 0830 01/07/18 0827 Objective Remarks GENERAL: Elderly female,NAD SKIN: Warm and dry. HEAD: Normocephalic. EYES: No scleral icterus. No injection or drainage. NECK: Supple, trachea midline. No JVD or lymphadenopathy. + trach CARDIOVASCULAR: Regular rate and rhythm without murmurs, gallops, or rubs. RESPIRATORY: Breath sounds equal bilaterally. No accessory muscle use. GASTROINTESTINAL: Abdomen soft, non-tender, nondistended. MUSCULOSKELETAL: No cyanosis, or edema. BACK: Nontender without obvious deformity. No CVA tenderness. A/P Assessment and Plan Chronic resp failure, ,S/P Trach CVA Pneumonia Calcified Granuloma LLL Pseudomonas Tracheobronchitis, PLAN: Vent support Continue with TP's, keep sats >92% Bronchodilators, Pulm toilet, trach care Cont TF GI/DVT prophylaxis Mucomyst Nebs PSV IV Zosyn Colistin Nebs Chris Pozo RN, MD January 08, 2018 15:51
[2018-01-08] MEDS: oxyCODONE HCL ORAL CONC 5 MG/0.25 ML SYRINGE PO PRN (20:22)
[2018-01-09] VITALS (17 sets, daily range): BP systolic 103–178; BP diastolic 52–74; PULSE 51–100; RESP 16–26; TEMP 99.4–100.9; O2SAT 84–99
[2018-01-09] MEDS: INSULIN DETEMIR 100 UNITS/ML VIAL SQ SCH ×2 (00:09→15:08)
[2018-01-09] MEDS: INSULIN NovoLIN REGULAR SUPPLEMENTAL SCALE SQ SCH ×4 (00:11→17:26)
[2018-01-09] MEDS: PIPERACIL-TAZO 4.5 GM PREMIX 100 ML IV SCH ×2 (02:36→10:15)
[2018-01-09] MEDS: RESP: ALBUTEROL 2.5 MG/IPRATROPIUM 0.5 MG NEB (SCH) NEB ×4 (04:00→19:47)
[2018-01-09] MEDS: FREE WATER PO SCH ×3 (05:19→16:05)
[2018-01-09] MEDS: hydrALAZINE HCL 10 MG TAB PEG SCH ×3 (05:19→21:44)
[2018-01-09] MEDS: RESP: COLISTIN 150 MG VIAL NEB SCH ×2 (08:00→20:10)
[2018-01-09] MEDS: FUROSEMIDE 40 MG TAB PO SCH ×2 (10:15→16:05)
[2018-01-09] MEDS: CALCIUM/VITAMIN D 250 MG/125 U TAB PEG SCH ×3 (10:15→16:05)
[2018-01-09] MEDS: CHOLECALCIFEROL (VIT D3) 5000 UNIT CAP PEG SCH (10:15)
[2018-01-09] MEDS: LANSOPRAZOLE SOLUTAB 30 MG TAB NG SCH (10:16)
[2018-01-09] MEDS: DIPHENOXYLATE/ATROPINE 2.5 MG/0.025 MG/5 ML CUP PO PRN (10:16)
[2018-01-09] MEDS: CALCIUM POLYCARBOPHIL 625 MG TAB PO SCH ×2 (10:16→21:43)
[2018-01-09] MEDS: LACTOBACILLUS ACIDOPHILUS TAB PEG SCH ×2 (10:16→21:43)
[2018-01-09] MEDS: CHOLESTYRAMINE LIGHT 4 GM PACKAGE PEG SCH ×2 (10:16→21:43)
[2018-01-09] MEDS: oxyCODONE HCL ORAL CONC 5 MG/0.25 ML SYRINGE PO PRN ×3 (10:17→21:48)
[2018-01-09] MEDS: LISINOPRIL 5 MG TAB PEG SCH (10:17)
--- NOTE | 2018-01-09 14:21 | HHI.IDPN ---
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 She underwent repair of her fracture, and while in the hospital recovering she had a large left MCA CVA. She has required ventilatory support, and ended up getting a tracheostomy on May 15, and a PEG placement May 16. Patient was successfully weaned from the vent. Her neurological status had some improvement , and she has been awake but only intermittently following commands. Patient has been treated for multiple infections including pneumonia and UTI. She has had infections with MDR, including resistant Pseudomonas as well as VRE. About 2 days ago, she had an episode of vomiting and witnessed aspiration. She has been febrile, and her WBC had gone up to 17,000. Chest x-ray done showed some no infiltrates especially on the right side. She also has required BiPAP. Records reviewed. Patient was last seen December 24, and completed a course of treatment for aspiration pneumonia with gram-negative siomara She finished Zosyn last December 27 and at that time she was doing well on T-piece. About a week ago she started having problem with increasing secretions, very thick, and mucous plugging. She started having some intermittent fevers january 04 She had undergone bronchoscopy January 02 Bronchial cultures grew MDR Pseudomonas, and a sensitive Serratia Her WBC is up to 16,000 She is still febrile She has been back on the vent, and currently on CPAP Has very thick light yellow green secretions Also has a lot of oral secretions Has no Leavitt Has PIV in her left foot D/W RN Notes reviewed temps up again Notes to have rash L chest to back On CPAP Awake, not following C/S PSAE R to Zosyn Antibiotics Zerbaxa Current Medications Medications (Trade) Dose Ordered Sig/Zeferino Route Start Time Stop Time Status Last Admin (Narcan Inj) 0.4 mg UNSCH PRN IV 04/20/17 17:15 (Prevacid Odt) 30 mg DAILY NG 05/08/17 09:00 01/09/18 10:16 (Nitroglycerin 2% Oint) 2 inch Q6H PRN TOPICAL 06/21/17 08:00 06/30/17 14:37 (Pill Splitter) 1 ea UNSCH PRN OTHER 09/05/17 11:00 (Apresoline) 10 mg Q8HR PEG 09/24/17 14:00 01/09/18 05:19 (Norvasc) 10 mg DAILY PEG 10/04/17 09:00 01/09/18 10:16 (Oscal-D 250-125) 250 mg TID PEG 10/03/17 13:00 01/09/18 12:18 (Vitamin D3) 5,000 units DAILY PEG 10/04/17 09:00 01/09/18 10:15 (Catapres) 0.1 mg Q6H PRN PEG 10/03/17 12:30 11/27/17 00:23 (Lactinex) 1 tab Q12HR PEG 10/03/17 21:00 01/09/18 10:16 (Miralax) 17 gm DAILY PRN PEG 10/03/17 12:00 (Beneprotein Powder) 1 pack TID PRN G-TUBE 10/03/17 12:00 (Albuterol Neb) 2.5 mg Q2HR NEB PRN NEB 10/03/17 21:45 01/07/18 14:05 (Tylenol 650 Mg/ 20 ml Liq) 650 mg Q6H PRN PEG 10/26/17 06:45 01/08/18 00:48 (Roxicodone Intensol Liq) 5 mg Q6H PRN PO 10/29/17 11:00 01/09/18 10:17 (D50w (Vial) Inj) 50 ml UNSCH PRN IV PUSH 11/04/17 12:30 01/03/18 14:03 (Glucagon Inj) 1 mg UNSCH PRN OTHER 11/04/17 12:30 (NovoLIN R SUPPLEMENTAL SCALE) 1 Q6H SQ 11/04/17 12:30 01/09/18 00:11 (Prinivil) 5 mg DAILY PEG 11/23/17 09:00 01/09/18 10:17 (Zofran Inj) 4 mg Q6HR PRN IV PUSH 12/08/17 05:00 01/04/18 09:23 (Free Water) 250 ml Q6HR PO 12/13/17 18:00 01/09/18 12:17 (Tears Naturale Opth Soln) 1 drop Q8H PRN EACH EYE 12/19/17 19:30 12/28/17 10:05 (Lomotil 2.5-0.025 Mg Liq) 5 ml Q6H PRN PO 12/22/17 08:30 (Questran Light Pkt) 4 gm BID PEG 12/25/17 09:00 01/09/18 10:16 (Fiber Con) 625 mg Q12HR PO 12/24/17 21:15 01/09/18 10:16 (Lasix) 40 mg BID@ PO 12/26/17 18:00 01/09/18 10:15 (Baciguent Oint) 1 applic Q12HR PRN TOPICAL 12/27/17 08:15 12/28/17 10:05 (Levemir Inj) 7 units Q12H SQ 01/04/18 00:00 01/09/18 00:09 (Duoneb Neb) 1 ampule Q6HR NEB NEB 01/06/18 22:00 01/09/18 09:37 (Coly-Mycin M Neb) 75 mg BID NEB NEB 01/07/18 12:00 01/09/18 08:00 Ceftolozane/ Tazobactam 1500 mg/Sodium Chloride 100 ml @ 100 mls/hr Q8H IV 01/09/18 15:00 Lines Line sites with no e.o infection. Past Medical History CVA Hypertension Diabetes Past Surgical History S/P trach 05/2017 S/P PEG 05/2017 ORIF L hip Allergies: Coded Allergies: No Known Allergies (Unverified , 04/20/17) Objective . Vital Signs Date Time Temp Pulse Resp B/P (MAP) Pulse Ox O2 Delivery O2 Flow Rate FiO2 01/09/18 11:17 24 01/09/18 11:01 99 40 01/09/18 08:08 96 40 01/09/18 04:39 98 40 01/09/18 04:00 100.9 56 16 118/56 (76) 97 01/09/18 04:00 40 01/09/18 04:00 56 01/09/18 00:25 100.6 51 16 103/54 (70) 98 01/09/18 00:00 40 01/08/18 23:00 60 01/08/18 23:00 98 T-Piece 40 01/08/18 23:00 40 01/08/18 22:38 99 40 01/08/18 20:00 90 01/08/18 19:53 97 40 01/08/18 19:09 94 T-Piece 40 01/08/18 19:09 40 01/08/18 19:09 99.4 93 16 142/69 (93) 94 01/08/18 16:00 99.0 98 16 146/82 (103) 95 01/08/18 16:00 40 01/08/18 15:40 96 40 01/08/18 15:00 90 . Laboratory Tests Test 01/08/18 08:30 White Blood Count 10.9 TH/MM3 Red Blood Count 3.12 MIL/MM3 Hemoglobin 9.9 GM/DL Hematocrit 29.0 % Mean Corpuscular Volume 93.0 FL Mean Corpuscular Hemoglobin 31.9 PG Mean Corpuscular Hemoglobin Concent 34.3 % Red Cell Distribution Width 15.5 % Platelet Count 213 TH/MM3 Mean Platelet Volume 8.0 FL Neutrophils (%) (Auto) 72.2 % Lymphocytes (%) (Auto) 12.2 % Monocytes (%) (Auto) 8.7 % Eosinophils (%) (Auto) 5.5 % Basophils (%) (Auto) 1.4 % Neutrophils # (Auto) 7.9 TH/MM3 Lymphocytes # (Auto) 1.3 TH/MM3 Monocytes # (Auto) 0.9 TH/MM3 Eosinophils # (Auto) 0.6 TH/MM3 Basophils # (Auto) 0.1 TH/MM3 CBC Comment DIFF FINAL Differential Comment Microbiology Date/Time Source Procedure Growth Status 01/07/18 08:29 Blood Peripheral Aerobic Blood Culture - Preliminary NO GROWTH IN 2 DAYS Resulted 01/07/18 08:29 Blood Peripheral Anaerobic Blood Culture - Preliminary NO GROWTH IN 2 DAYS Resulted 01/07/18 08:23 Blood Peripheral Aerobic Blood Culture - Preliminary NO GROWTH IN 2 DAYS Resulted 01/07/18 08:23 Blood Peripheral Anaerobic Blood Culture - Preliminary NO GROWTH IN 2 DAYS Resulted 01/07/18 09:45 Sputum Endotracheal Gram Stain - Final Resulted 01/07/18 09:45 Sputum Culture - Preliminary Pseudomonas Aeruginosa Multi-Drug Resistant Serratia Marcescens Resulted Imaging Chest X-Ray 01/08/18 0000 Signed Impressions: Service Date/Time: December 03:37 - CONCLUSION: No significant change. Right pleural effusion with bilateral airspace disease right greater than left. Jose R Casanova MD Chest X-Ray 12/21/17 0600 Signed Impressions: Service Date/Time: Thursday, December 21, 2017 05:51 - CONCLUSION: Some improvement in the infiltrates bilaterally. Deangelo Wren Jr., MD Upper Extremity Ultrasound 11/04/17 0000 Signed Impressions: Service Date/Time: Saturday, November 04, 2017 09:57 - CONCLUSION: No thrombus observed. Subcutaneous edema noted. Deangelo Wren Jr., MD Abdomen X-Ray 11/04/17 0000 Signed Impressions: Service Date/Time: Saturday, November 04, 2017 11:58 - CONCLUSION: Gaseous distention of bowel loops could be ileus but unchanged. Benja Ramsey MD CT Angiography 11/01/17 0000 Signed Impressions: Service Date/Time: Wednesday, November 01, 2017 16:47 - CONCLUSION: No evidence for pulmonary embolism. Please see above. Choco Mustafa MD Thoracentesis 08/05/17 1535 Signed Impressions: Service Date/Time: Saturday, August 05, 2017 16:08 - CONCLUSION: Uncomplicated CT-guided thoracentesis. Sage Adler MD Chest Ultrasound 08/02/17 0000 Signed Impressions: Service Date/Time: Tuesday, August 01, 2017 22:06 - CONCLUSION: 1. Moderate right pleural effusion, as above. Alejo De La Vega MD Hip and Pelvis X-Ray 07/09/17 0000 Signed Impressions: Service Date/Time: Sunday, July 09, 2017 14:04 - CONCLUSION: Anatomic alignment. Ricardo Middleton MD FACR Liver Ultrasound 06/19/17 0000 Signed Impressions: Service Date/Time: June 13:20 - CONCLUSION: 1. Mildly increased echotexture of the liver characteristic of hepatic steatosis. 2. Gallbladder sludge. Obdulio Sam MD Head CT 05/15/17 0000 Signed Impressions: Service Date/Time: May 19:59 - CONCLUSION: 1. 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 2. No bleed or new/acute infarct. Obdulio Simms MD Gall Bladder Ultrasound 05/08/17 0000 Signed Impressions: Service Date/Time: May 08:23 - CONCLUSION: Focally unremarkable appearance of the gallbladder Obdulio Chun MD Abdomen/Pelvis CT 05/07/17 0000 Signed Impressions: Service Date/Time: Sunday, May 07, 2017 13:23 - CONCLUSION: 1. Large left pneumothorax. 2. Bilateral lower lobe consolidation and bilateral moderate size pleural effusions. 3. Significant soft tissue thickening of the right lateral chest wall and left gluteus muscle. 4. Mild ascites. The findings were called to Dr. Carney. Deangelo Zamora MD Chest CT 04/30/17 0000 Signed Impressions: Service Date/Time: Sunday, April 30, 2017 09:20 - CONCLUSION: 1. Bilateral pulmonary infiltrates more pronounced within the lower lobes with tiny bilateral pleural effusions. Material seen filling the lower lobe bronchi bilaterally either related to purulent material or perhaps mucus plugging. Deangelo Wren Jr., MD Carotid Artery Ultrasound 04/24/17 0000 Signed Impressions: Service Date/Time: April 09:45 - CONCLUSION: 1. No hemodynamically significant carotid artery stenosis. Arnie Middleton MD Hip X-Ray 04/21/17 0000 Signed Impressions: Service Date/Time: Friday, April 21, 2017 11:36 - CONCLUSION: Fluoroscopic images during placement of intramedullary siomara left femur. Benja Ramsey MD Physical Exam GENERAL: Awake, focusing, but not following, looks comfortable on CPAP SKIN: Warm and dry. Has varicell rash in L upper chest to back HEAD: Atraumatic. Normocephalic. No temporal wasting, or tenderness. EYES: [place] conjunctiva. No petechia or hemorrhage. Pupils equal, round and reactive to light. No scleral icterus. No injection or drainage. EARS, NOSE AND THROAT: Nose without bleeding or purulent nasal discharge. No sinus tenderness. Mucous membranes pink and moist. NECK: Trachea midline. Trach site ok. Supple and not tender, no meningeal signs CARDIOVASCULAR: Regular rate and rhythm. Soft heart sounds. RESPIRATORY: has bilateral rhonchi worse on R than L. Decreased breath sounds at the bases ABDOMEN: Soft, mildly distended, some grimacing during palpation. Bowel sounds present and normoactive. PEG site ok EXTREMITIES: No clubbing, cyanosis, or edema. Well perfused and warm. NEUROLOGICAL: Awake and focusing. Not following. 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 Fracture L hip S/P ORIF RECOMMENDATION Change back to Zerbaxa Micro will do susceptibility testing Add Valtrex Continue Colistin nebs Follow new C/S - has BC Follow temps Follow CBC Monitor progress Contact isolation for shingles D/W RN D/W Dr Lopez (HEPAS) Nelly Michaud MD January 09, 2018 14:21
--- NOTE | 2018-01-09 14:55 | HHI.PR ---
Subjective Remarks Found to have rash in the lower left breast going to the axillary area. No acute changes overnight otherwise. Still with some minimal loose stools. Objective Vitals Vital Signs Date Time Temp Pulse Resp B/P (MAP) Pulse Ox O2 Delivery O2 Flow Rate FiO2 01/09/18 11:17 24 01/09/18 11:01 99 40 01/09/18 08:08 96 40 01/09/18 04:39 98 40 01/09/18 04:00 100.9 56 16 118/56 (76) 97 01/09/18 04:00 40 01/09/18 04:00 56 01/09/18 00:25 100.6 51 16 103/54 (70) 98 01/09/18 00:00 40 01/08/18 23:00 60 01/08/18 23:00 98 T-Piece 40 01/08/18 23:00 40 01/08/18 22:38 99 40 01/08/18 20:00 90 01/08/18 19:53 97 40 01/08/18 19:09 94 T-Piece 40 01/08/18 19:09 40 01/08/18 19:09 99.4 93 16 142/69 (93) 94 01/08/18 16:00 99.0 98 16 146/82 (103) 95 01/08/18 16:00 40 01/08/18 15:40 96 40 01/08/18 15:00 90 I/O 01/08/18 01/08/18 01/08/18 01/09/18 01/09/18 01/09/18 07:00 15:00 23:00 07:00 15:00 23:00 Intake Total 1446 ml 980 ml 1140 ml Output Total 850 ml 550.0 ml 700 ml Balance 596 ml 430.0 ml 440 ml Intake Oral 0 ml Tube Feeding 866 ml 480 ml 540 ml Other 580 ml 500 ml 600 ml Output Urine Total 850 ml 550 ml 700 ml Tube Feeding Residual Discard 0 ml # Bowel Movements 1 1 Result Diagram: 01/08/18 0830 01/07/18 0827 Other Results Item Value Date Time Bedside Blood Glucose 134 mg/dl 01/09/18 0618 Bedside Blood Glucose 171 mg/dl 01/09/18 0011 Objective Remarks GENERAL: This is a well-nourished, well-developed patient, in no apparent distress. Trach in place CARDIOVASCULAR: Regular rate and rhythm without murmurs, gallops, or rubs. RESPIRATORY: bilaterally coarse breath sounds. GASTROINTESTINAL: Abdomen soft, non-tender, nondistended. Normal active bowel sounds SKIN: Vesicles from the lower left breast upper abdomen area radiating towards the left axilla and back trunk Procedures PEG tube trach 05/15/17 and PEG 05/16/17 A/P Problem List: (1) Acute ischemic left middle cerebral artery (MCA) stroke ICD Code: I63.512 - Cerebral infarction due to unspecified occlusion or stenosis of left middle cerebral artery Status: Acute (2) Acute respiratory failure ICD Code: J96.00 - Acute respiratory failure, unspecified whether with hypoxia or hypercapnia Status: Resolved (3) Right hemiplegia ICD Code: G81.91 - Hemiplegia, unspecified affecting right dominant side Status: Acute (4) Sacral decubitus ulcer ICD Code: L89.159 - Pressure ulcer of sacral region, unspecified stage Status: Chronic (5) HCAP (healthcare-associated pneumonia) ICD Code: J18.9 - Pneumonia, unspecified organism Status: Acute (6) 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 She underwent ORIF on 04/21/17 and on 04/24 a stroke alert was called as she was found to have right hemiparesis with left gaze. She has a poor prognosis based on her lack of overall recovery over the last 6+ months. 01/07 Sepsis with Recurrent Hospital Acquired/Ventilator Associated Pneumonia: patient with previous +fever Tmax 101.0, leukocytosis WBC Trended down and improved after antibiotics started, CXR 01/04/18 showed stable CXR with moderate size right pleural effusion with associated volume loss or airspace consolidation; likely small left pleural effusion; bilateral interstitial opacities; repeat chest x-ray today showed stable unchanged. Patient continued to spike fevers, Reconsulted infectious disease as bronchial washing culture 01/02 positive for multi drug resistant pseudomonas Initially started on IV Zerbaxa, and change IV Zosyn and now change back to Zerbaxa per ID Blood cultures collected and pending Repeat sputum culture 01/07with Pseudomonas MDRO and Serratia; blood cultures with no growth New acute shingles-contact isolation and start Valtrex. Chronic Tracheostomy /respiratory failure Pulmonary toilet, trach care Duo nebs q6h Pulmonary following, appreciate assistance S/p bronchoscopy 01/02 with removal of mucous plugs and bronchial washings done Bronchial washings culture from 01/02 with multi drug resistant, pseudomonas, serratia Urinary retention- resolved No leukocytosis U/A with large leuk esterase but many squamous cells Culture with mixed Gram positive dmitry Completed Augmentin 11/07-11/14 Leavitt removed. Previous level elevated D-dimer Ordered on 10/31 for increasing FiO2 demand Since D-dimer elevated, CTA chest obtained to r/o PE which was negative Likely elevated in light of chronic illness RUE U/S negative for DVT - elevate R arm Left MCA stroke 5.5 mm of [id number] subfalcine herniation, diagnosed 04/24. Was not a candidate for thrombolysis at that time. Increasing edema seen on repeat CT 04/28 with a reduction in midline shift on another repeat on 04/30 Neurologic condition remained poor and she underwent trach 05/15/17 and PEG Persistent right-sided hemiparesis. Previously seen by neurology, signed off Previously seen by neurosurgery, signed off Continue daily ASA Hypertension / CHF Amlodipine 10 mg po daily, Doxazosin 1 mg peg daily, hydralazine 10 mg per per peg q8 hours. Clonidine 0.1 mg q6h prn Echo 10/06/17 LVSF EF = 25-30%. Large left pneumothorax Resolved Chest tube placed 05/07, discontinued 05/12/17 Hepatitis C LFTs normalized Negative genotype/viral load Diabetes mellitus -overall adequately controlled. SSI Novolin R High-dose scale Levemir insulin 8u Q12 FEN PEG tube feeding with Glucerna 1.5 goal 45 cc/hr, per nutrition recommendations Loose Stools - improved patient has been checked for Cdiff on multiple occasions, most recently 12/21 C diff negative continue on lactinex bid, questran bid and monitor for improvement improving DVT prophylaxis Heparin Discharge Planning Difficult placement Problem Qualifiers (1) Acute respiratory failure: Qualified Codes: J96.00 - Acute respiratory failure, unspecified whether with hypoxia or hypercapnia (2) Sacral decubitus ulcer: Qualified Codes: L89.152 - Pressure ulcer of sacral region, stage 2 (3) Chronic respiratory failure: Qualified Codes: J96.11 - Chronic respiratory failure with hypoxia (4) Shingles: Qualified Codes: B02.8 - Zoster with other complications Kassie Lopez MD January 09, 2018 14:55
[2018-01-09] MEDS: CEFTOLOZANE-TAZOBACTAM INJ 1,500 MG in SODIUM CHLORIDE 0.9% INJ 100 ML IV SCH ×2 (16:05→22:33)
[2018-01-09] MEDS: valACYclovir HCL 500 MG TAB PO SCH ×2 (16:05→21:44)
--- NOTE | 2018-01-09 19:31 | HHI.PR ---
Subjective Remarks No events overnight. Patient is on TP's with 40% FIO2. . Tolerating tube feeds. Tolerates TF to goal rate No fever Moderate amount of thick mucous had bronch, mucous plugs removed On PSV 15/ On Zosyn and colistin Nebs no new complaint Objective Vital Signs Vital Signs Date Time Temp Pulse Resp B/P (MAP) Pulse Ox O2 Delivery O2 Flow Rate FiO2 01/09/18 18:27 22 01/09/18 16:00 50 01/09/18 16:00 100.6 100 24 138/66 (90) 96 01/09/18 15:57 97 50 01/09/18 15:00 71 22 114/60 (78) 90 01/09/18 15:00 74 01/09/18 14:30 50 01/09/18 14:30 95 Mechanical Ventilator 50 T-Piece Humidified 01/09/18 14:00 87 26 142/74 (96) 84 01/09/18 12:00 100.4 92 24 178/52 (94) 93 01/09/18 11:01 99 40 01/09/18 10:00 81 20 170/52 (91) 97 01/09/18 08:08 96 40 01/09/18 08:00 40 01/09/18 08:00 100.3 87 26 174/54 (94) 97 01/09/18 08:00 92 Mechanical Ventilator 40 T-Piece Humidified 01/09/18 07:00 100 01/09/18 04:39 98 40 01/09/18 04:00 100.9 56 16 118/56 (76) 97 01/09/18 04:00 40 01/09/18 04:00 56 01/09/18 00:25 100.6 51 16 103/54 (70) 98 01/09/18 00:00 40 01/08/18 23:00 60 01/08/18 23:00 98 T-Piece 40 01/08/18 23:00 40 01/08/18 22:38 99 40 01/08/18 20:00 90 01/08/18 19:53 97 40 I/O 01/08/18 01/08/18 01/08/18 01/09/18 01/09/18 01/09/18 07:00 15:00 23:00 07:00 15:00 23:00 Intake Total 1546 ml 200 ml 1080 ml 1240 ml 100 ml 1140 ml Output Total 850 ml 550.0 ml 700 ml 0 ml 500 ml Balance 696 ml 200 ml 530.0 ml 540 ml 100 ml 640 ml Intake Oral 0 ml IV Total 100 ml 200 ml 100 ml 100 ml 100 ml Tube Feeding 866 ml 480 ml 540 ml 540 ml Other 580 ml 500 ml 600 ml 600 ml Output Urine Total 850 ml 550 ml 700 ml 500 ml Tube Feeding Residual Discard 0 ml 0 ml # Bowel Movements 1 1 2 Result Diagram: 01/08/1882901/07/18826 Objective Remarks GENERAL: Elderly female,NAD SKIN: Warm and dry. HEAD: Normocephalic. EYES: No scleral icterus. No injection or drainage. NECK: Supple, trachea midline. No JVD or lymphadenopathy. + trach CARDIOVASCULAR: Regular rate and rhythm without murmurs, gallops, or rubs. RESPIRATORY: Breath sounds equal bilaterally. No accessory muscle use. GASTROINTESTINAL: Abdomen soft, non-tender, nondistended. MUSCULOSKELETAL: No cyanosis, or edema. BACK: Nontender without obvious deformity. No CVA tenderness. A/P Assessment and Plan Chronic resp failure, ,S/P Trach CVA Pneumonia Calcified Granuloma LLL Pseudomonas Tracheobronchitis, PLAN: Vent support Bronchodilators, Cont TF GI/DVT prophylaxis Mucomyst Nebs PSV IV Zosyn Colistin Nebs Chris Pozo RN, MD January 09, 2018 19:31
[2018-01-10] VITALS (19 sets, daily range): BP systolic 114–133; BP diastolic 56–85; PULSE 70–110; RESP 12–26; TEMP 98.5–100.6; O2SAT 75–99
[2018-01-10] MEDS: INSULIN NovoLIN REGULAR SUPPLEMENTAL SCALE SQ SCH ×5 (00:30→23:26)
[2018-01-10] MEDS: INSULIN DETEMIR 100 UNITS/ML VIAL SQ SCH ×3 (00:40→23:20)
[2018-01-10] MEDS: DIPHENOXYLATE/ATROPINE 2.5 MG/0.025 MG/5 ML CUP PO PRN ×2 (02:37→09:08)
[2018-01-10] MEDS: RESP: ALBUTEROL 2.5 MG/IPRATROPIUM 0.5 MG NEB (SCH) NEB ×4 (03:57→20:52)
[2018-01-10] MEDS: FREE WATER PO SCH ×3 (05:57→11:58)
[2018-01-10] MEDS: valACYclovir HCL 500 MG TAB PO SCH (06:00)
[2018-01-10] MEDS: hydrALAZINE HCL 10 MG TAB PEG SCH ×3 (06:00→21:13)
[2018-01-10] MEDS: CEFTOLOZANE-TAZOBACTAM INJ 1,500 MG in SODIUM CHLORIDE 0.9% INJ 100 ML IV SCH ×3 (06:00→23:00)
[2018-01-10] MEDS: CHOLESTYRAMINE LIGHT 4 GM PACKAGE PEG SCH ×2 (09:03→21:13)
[2018-01-10] MEDS: CALCIUM POLYCARBOPHIL 625 MG TAB PO SCH (09:04)
[2018-01-10] MEDS: CALCIUM/VITAMIN D 250 MG/125 U TAB PEG SCH ×3 (09:04→17:11)
[2018-01-10] MEDS: LACTOBACILLUS ACIDOPHILUS TAB PEG SCH ×3 (09:04→17:11)
[2018-01-10] MEDS: CHOLECALCIFEROL (VIT D3) 5000 UNIT CAP PEG SCH (09:04)
[2018-01-10] MEDS: FUROSEMIDE 40 MG TAB PO SCH (09:05)
[2018-01-10] MEDS: LANSOPRAZOLE SOLUTAB 30 MG TAB NG SCH (09:06)
[2018-01-10] MEDS: LISINOPRIL 5 MG TAB PEG SCH (09:06)
[2018-01-10] MEDS: oxyCODONE HCL ORAL CONC 5 MG/0.25 ML SYRINGE PO PRN (09:08)
[2018-01-10] MEDS: ARTIFICIAL TEARS OPTH SOLN 15 ML BTL EACH EYE PRN (09:11)
[2018-01-10] MEDS: RESP: COLISTIN 150 MG VIAL NEB SCH ×2 (09:25→20:00)
[2018-01-10] MEDS ORDERED: DIPHENOXYLATE/ATROPINE 2.5 MG/0.025 MG/5 ML CUP PEG PRN (12:15)
--- NOTE | 2018-01-10 12:17 | HHI.PR ---
Subjective Remarks Patient seen and examined Nonverbal Case discussed with GREGORY castellanos and stated patient is grimacing likely secondary to pain due to shingles Objective Vitals Vital Signs Date Time Temp Pulse Resp B/P (MAP) Pulse Ox O2 Delivery O2 Flow Rate FiO2 01/10/18 11:53 98 60 01/10/18 10:08 20 01/10/18 09:25 98 40 01/10/18 08:00 92 Mechanical Ventilator 40 T-Piece Humidified 01/10/18 08:00 50 01/10/18 08:00 100.6 76 26 127/64 (85) 97 01/10/18 07:00 84 01/10/18 04:30 96 50 01/10/18 04:00 50 01/10/18 03:58 100.0 80 25 128/85 (99) 96 01/10/18 00:06 97 50 01/10/18 00:00 98.5 87 25 129/64 (85) 97 01/10/18 00:00 50 01/09/18 23:00 79 01/09/18 20:28 99.4 86 21 117/60 (79) 97 01/09/18 20:00 80 01/09/18 20:00 97 Mechanical Ventilator 50 01/09/18 20:00 50 01/09/18 19:50 98 50 01/09/18 16:00 50 01/09/18 16:00 100.6 100 24 138/66 (90) 96 01/09/18 15:57 97 50 01/09/18 15:00 71 22 114/60 (78) 90 01/09/18 15:00 74 01/09/18 14:30 50 01/09/18 14:30 95 Mechanical Ventilator 50 T-Piece Humidified 01/09/18 14:00 87 26 142/74 (96) 84 I/O 01/09/18 01/09/18 01/09/18 01/10/18 01/10/18 01/10/18 07:00 15:00 23:00 07:00 15:00 23:00 Intake Total 1240 ml 100 ml 1240 ml 1120 ml Output Total 700 ml 0 ml 500 ml 1000 ml 0 ml Balance 540 ml 100 ml 740 ml 120 ml 0 ml IV Total 100 ml 100 ml 100 ml 200 ml Tube Feeding 540 ml 540 ml 420 ml Other 600 ml 600 ml 500 ml Output Urine Total 700 ml 500 ml 1000 ml Tube Feeding Residual Discard 0 ml 0 ml # Bowel Movements 1 2 2 Result Diagram: 01/08/18 0830 01/07/18 08 Objective Remarks GENERAL: NAD SKIN: shingles HEAD: Normocephalic. EYES: No scleral icterus. No injection or drainage. NECK: Supple, trachea midline. No JVD or lymphadenopathy. CARDIOVASCULAR: Regular rate and rhythm without murmurs, gallops, or rubs. RESPIRATORY: Breath sounds equal bilaterally. No accessory muscle use. GASTROINTESTINAL: Abdomen soft, non-tender, nondistended. MUSCULOSKELETAL: No cyanosis, or edema. BACK: Nontender without obvious deformity. No CVA tenderness. Procedures PEG tube trach 05/15/17 and PEG 05/16/17 A/P Problem List: (1) Acute ischemic left middle cerebral artery (MCA) stroke ICD Code: I63.512 - Cerebral infarction due to unspecified occlusion or stenosis of left middle cerebral artery Status: Acute (2) Acute respiratory failure ICD Code: J96.00 - Acute respiratory failure, unspecified whether with hypoxia or hypercapnia Status: Resolved (3) Right hemiplegia ICD Code: G81.91 - Hemiplegia, unspecified affecting right dominant side Status: Acute (4) Sacral decubitus ulcer ICD Code: L89.159 - Pressure ulcer of sacral region, unspecified stage Status: Chronic (5) HCAP (healthcare-associated pneumonia) ICD Code: J18.9 - Pneumonia, unspecified organism Status: Acute (6) 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 ICD Code: A49.8 - Other bacterial infections of unspecified site; Z16.24 - Resistance to multiple antibiotics Status: Acute (7) CVA (cerebral vascular accident) ICD Code: I63.9 - Cerebral infarction, unspecified Status: Chronic (8) Chronic respiratory failure ICD Code: J96.10 - Chronic respiratory failure, unspecified whether with hypoxia or hypercapnia Status: Chronic (9) Shingles ICD Code: B02.9 - Zoster without complications Status: Acute Assessment and Plan 77-year-old female with 01/07 Sepsis with Recurrent Hospital Acquired/Ventilator Associated Pneumonia: patient with previous +fever Tmax 101.0, leukocytosis WBC Trended down and improved after antibiotics started, On Zerbaxa per ID Repeat sputum culture 01/07with Pseudomonas MDRO and Serratia; blood cultures with no growth New acute shingles-contact isolation and continue Valtrex.Start Neurontin for pain PRN Chronic Tracheostomy /respiratory failure Pulmonary toilet, trach care Duo nebs q6h Pulmonary following, appreciate assistance S/p bronchoscopy 01/02 with removal of mucous plugs and bronchial washings done Bronchial washings culture from 01/02 with multi drug resistant, pseudomonas, serratia Urinary retention- resolved No leukocytosis U/A with large leuk esterase but many squamous cells Culture with mixed Gram positive dmitry Completed Augmentin 11/07-11/14 Leavitt removed. Previous level elevated D-dimer Ordered on 10/31 for increasing FiO2 demand Since D-dimer elevated, CTA chest obtained to r/o PE which was negative Likely elevated in light of chronic illness RUE U/S negative for DVT - elevate R arm Left MCA stroke 5.5 mm of [id number] subfalcine herniation, diagnosed 04/24. Was not a candidate for thrombolysis at that time. Increasing edema seen on repeat CT 04/28 with a reduction in midline shift on another repeat on 04/30 Neurologic condition remained poor and she underwent trach 05/15/17 and PEG Persistent right-sided hemiparesis. Previously seen by neurology, signed off Previously seen by neurosurgery, signed off Continue daily ASA Hypertension / CHF Amlodipine 10 mg po daily, Doxazosin 1 mg peg daily, hydralazine 10 mg per per peg q8 hours. Clonidine 0.1 mg q6h prn Echo 10/06/17 LVSF EF = 25-30%. Large left pneumothorax Resolved Chest tube placed 05/07, discontinued 05/12/17 Hepatitis C LFTs normalized Negative genotype/viral load Diabetes mellitus -overall adequately controlled. SSI Novolin R High-dose scale Off Levemir FEN PEG tube feeding with Glucerna 1.5 goal 45 cc/hr, per nutrition recommendations Loose Stools - improved patient has been checked for Cdiff on multiple occasions, most recently 12/21 C diff negative continue on lactinex bid, questran bid and monitor for improvement DVT prophylaxis Heparin Discharge Planning Difficult placement Problem Qualifiers (1) Acute respiratory failure: Qualified Codes: J96.00 - Acute respiratory failure, unspecified whether with hypoxia or hypercapnia (2) Sacral decubitus ulcer: Qualified Codes: L89.152 - Pressure ulcer of sacral region, stage 2 (3) Chronic respiratory failure: Qualified Codes: J96.11 - Chronic respiratory failure with hypoxia (4) Shingles: Qualified Codes: B02.8 - Zoster with other complications Benja Rey MD January 10, 2018 12:17
[2018-01-10] MEDS: valACYclovir HCL 500 MG TAB PEG SCH ×2 (13:04→21:47)
[2018-01-10] MEDS: FUROSEMIDE 40 MG TAB PEG SCH (17:11)
[2018-01-10] MEDS: FREE WATER PEG SCH ×2 (17:11→23:00)
[2018-01-10] MEDS: GABAPENTIN 100 MG CAP PO PRN (17:11)
[2018-01-10] MEDS: oxyCODONE HCL ORAL CONC 5 MG/0.25 ML SYRINGE PEG PRN (17:16)
[2018-01-10] MEDS: CALCIUM POLYCARBOPHIL 625 MG TAB PEG SCH (21:13)
[2018-01-11] VITALS (21 sets, daily range): BP systolic 110–131; BP diastolic 52–63; PULSE 40–95; RESP 16–38; TEMP 98.3–100.9; O2SAT 78–99
[2018-01-11] MEDS: FREE WATER PEG SCH ×3 (05:41→17:40)
[2018-01-11] MEDS: valACYclovir HCL 500 MG TAB PEG SCH ×3 (05:41→21:00)
[2018-01-11] MEDS: hydrALAZINE HCL 10 MG TAB PEG SCH ×3 (05:41→21:01)
[2018-01-11] MEDS: INSULIN NovoLIN REGULAR SUPPLEMENTAL SCALE SQ SCH ×3 (06:23→18:30)
[2018-01-11] MEDS: CEFTOLOZANE-TAZOBACTAM INJ 1,500 MG in SODIUM CHLORIDE 0.9% INJ 100 ML IV SCH ×2 (06:23→13:57)
[2018-01-11 08:38] LABS: ALBUMIN 2.1 GM/DL (3.4-5.0); ALT (GPT) 31 U/L (10-53); AST (GOT) 38 U/L (15-37); BICARBONATE 25.9 MEQ/L (21.0-32.0); CALCIUM 8.6 MG/DL (8.5-10.1); CHLORIDE 101 MEQ/L (98-107); GLOMERULAR FILTRATION RATE 97 ML/MIN (>89); GLUCOSE,RANDOM 165 MG/DL (74-106); SODIUM (NA) 135 MEQ/L (136-145)
[2018-01-11 08:39] LABS: BLOOD UREA NITROGEN 25 MG/DL (7-18)
[2018-01-11 08:41] LABS: ALKALINE PHOSPHATASE 332 U/L (45-117); TOTAL BILIRUBIN ADULT 0.3 MG/DL (0.2-1.0); TOTAL PROTEIN 6.6 GM/DL (6.4-8.2)
[2018-01-11 08:42] LABS: HEMATOCRIT 27.5 % (35.0-46.0); HEMOGLOBIN 9.4 GM/DL (11.6-15.3); MEAN CELL VOLUME 91.6 FL (80.0-100.0); MEAN CORPUSCULAR HEMOGLOBIN 31.3 PG (27.0-34.0); MEAN CORPUSCULAR HGB CONC 34.2 % (32.0-36.0); MEAN PLATELET VOLUME 9.4 FL (7.0-11.0); PLATELET COUNT 344 TH/MM3 (150-450); RED CELL DISTRIBUTION WIDTH 15.7 % (11.6-17.2); WHITE BLOOD COUNT 12.4 TH/MM3 (4.0-11.0)
[2018-01-11] MEDS: RESP: COLISTIN 150 MG VIAL NEB SCH ×2 (08:53→21:38)
[2018-01-11] MEDS: oxyCODONE HCL ORAL CONC 5 MG/0.25 ML SYRINGE PEG PRN (09:48)
[2018-01-11] MEDS: CALCIUM POLYCARBOPHIL 625 MG TAB PEG SCH ×2 (09:48→21:00)
[2018-01-11] MEDS: LISINOPRIL 5 MG TAB PEG SCH (09:49)
[2018-01-11] MEDS: FUROSEMIDE 40 MG TAB PEG SCH ×2 (09:49→17:39)
[2018-01-11] MEDS: CALCIUM/VITAMIN D 250 MG/125 U TAB PEG SCH ×3 (09:49→17:39)
[2018-01-11] MEDS: CHOLESTYRAMINE LIGHT 4 GM PACKAGE PEG SCH ×2 (09:49→21:00)
[2018-01-11] MEDS: LACTOBACILLUS ACIDOPHILUS TAB PEG SCH ×3 (09:49→17:39)
[2018-01-11] MEDS: LANSOPRAZOLE SOLUTAB 30 MG TAB NG SCH (09:50)
[2018-01-11] MEDS: GABAPENTIN 100 MG CAP PO PRN (09:51)
[2018-01-11] MEDS: CHOLECALCIFEROL (VIT D3) 5000 UNIT CAP PEG SCH (09:52)
[2018-01-11 10:09] LABS: BANDS 8 % (0-6); BASOPHILS 1 % (0-2); BLASTS 1 % (0-0); LYMPHOCYTES 18 % (9-44); METAMYELOCYTES 2 % (0-1); MONOCYTES 9 % (0-8); NEUTROPHIL # MANUAL DIFF 8.4 TH/MM3 (1.8-7.7); POLYS (SEG NEUTROPHILS) 58 % (16-70)
[2018-01-11 11:08] LABS: BICARBONATE 26.5 MEQ/L (21.0-32.0); CALCIUM 9.1 MG/DL (8.5-10.1); CREATININE 0.57 MG/DL (0.50-1.00); MAGNESIUM 2.2 MG/DL (1.5-2.5)
--- NOTE | 2018-01-11 11:17 | HHI.PR ---
Subjective Remarks Patient seen and examined Nonverbal Vital stable Case discussed with registered nurse Objective Vitals Vital Signs Date Time Temp Pulse Resp B/P (MAP) Pulse Ox O2 Delivery O2 Flow Rate FiO2 01/11/18 10:48 20 01/11/18 08:50 96 60 01/11/18 04:00 98 60 01/11/18 04:00 60 01/11/18 03:50 99.4 75 16 110/58 (75) 97 01/11/18 01:00 99 60 01/11/18 00:49 98.3 70 16 117/63 (81) 98 01/11/18 00:00 70 01/11/18 00:00 60 01/10/18 20:53 99 50 01/10/18 20:00 70 01/10/18 20:00 60 01/10/18 20:00 98 Bi-Pap 2.00 60 T-Piece Humidified 01/10/18 19:32 99.1 79 16 114/56 (75) 98 01/10/18 17:42 96 50 01/10/18 16:54 50 01/10/18 16:00 40 01/10/18 16:00 100.5 80 24 133/70 (91) 96 01/10/18 15:00 90 01/10/18 14:30 50 01/10/18 14:00 88 22 121/60 (80) 94 01/10/18 13:30 60 01/10/18 12:00 99.8 76 14 127/64 (85) 97 01/10/18 12:00 80 01/10/18 11:53 98 60 I/O 01/10/18 01/10/18 01/10/18 01/11/18 01/11/18 01/11/18 07:00 15:00 23:00 07:00 15:00 23:00 Intake Total 1120 ml 1140 ml 1140 ml Output Total 1000 ml 0 ml 1000.0 ml 1000 ml Balance 120 ml 0 ml 140.0 ml 140 ml IV Total 200 ml Tube Feeding 420 ml 540 ml 540 ml Other 500 ml 600 ml 600 ml Output Urine Total 1000 ml 1000 ml 1000 ml Tube Feeding Residual Discard 0 ml 0 ml # Bowel Movements 2 1 1 Result Diagram: 01/11/18 0723 01/11/18 0940 Objective Remarks GENERAL: NAD and currently on vent SKIN: shingles HEAD: Normocephalic. EYES: No scleral icterus. No injection or drainage. NECK: Supple, trachea midline. No JVD or lymphadenopathy. CARDIOVASCULAR: Regular rate and rhythm without murmurs, gallops, or rubs. RESPIRATORY: Breath sounds decrease bilaterally. No accessory muscle use. GASTROINTESTINAL: Abdomen soft, non-tender, nondistended. MUSCULOSKELETAL: No cyanosis, or edema. Restrain to LUE BACK: Nontender without obvious deformity. No CVA tenderness. Procedures PEG tube trach 05/15/17 and PEG 05/16/17 A/P Problem List: (1) Acute ischemic left middle cerebral artery (MCA) stroke ICD Code: I63.512 - Cerebral infarction due to unspecified occlusion or stenosis of left middle cerebral artery Status: Acute (2) Acute respiratory failure ICD Code: J96.00 - Acute respiratory failure, unspecified whether with hypoxia or hypercapnia Status: Resolved (3) Right hemiplegia ICD Code: G81.91 - Hemiplegia, unspecified affecting right dominant side Status: Acute (4) Sacral decubitus ulcer ICD Code: L89.159 - Pressure ulcer of sacral region, unspecified stage Status: Chronic (5) HCAP (healthcare-associated pneumonia) ICD Code: J18.9 - Pneumonia, unspecified organism Status: Acute (6) 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 ICD Code: A49.8 - Other bacterial infections of unspecified site; Z16.24 - Resistance to multiple antibiotics Status: Acute (7) CVA (cerebral vascular accident) ICD Code: I63.9 - Cerebral infarction, unspecified Status: Chronic (8) Chronic respiratory failure ICD Code: J96.10 - Chronic respiratory failure, unspecified whether with hypoxia or hypercapnia Status: Chronic (9) Shingles ICD Code: B02.9 - Zoster without complications Status: Acute Assessment and Plan 77-year-old female with 01/07 Sepsis with Recurrent Hospital Acquired/Ventilator Associated Pneumonia: On Zerbaxa per ID Repeat sputum culture 01/07with Pseudomonas MDRO and Serratia; blood cultures with no growth New acute shingles-contact isolation and continue Valtrex.Start Neurontin for pain PRN Chronic Tracheostomy /respiratory failure Pulmonary toilet, trach care Duo nebs q6h Pulmonary following, appreciate assistance S/p bronchoscopy 01/02 with removal of mucous plugs and bronchial washings done Bronchial washings culture from 01/02 with multi drug resistant, pseudomonas, serratia Urinary retention- resolved No leukocytosis U/A with large leuk esterase but many squamous cells Culture with mixed Gram positive dmitry Completed Augmentin 11/07-11/14 Leavitt removed. Previous level elevated D-dimer Ordered on 10/31 for increasing FiO2 demand Since D-dimer elevated, CTA chest obtained to r/o PE which was negative Likely elevated in light of chronic illness RUE U/S negative for DVT - elevate R arm Left MCA stroke 5.5 mm of [id number] subfalcine herniation, diagnosed 04/24. Was not a candidate for thrombolysis at that time. Increasing edema seen on repeat CT 04/28 with a reduction in midline shift on another repeat on 04/30 Neurologic condition remained poor and she underwent trach 05/15/17 and PEG Persistent right-sided hemiparesis. Previously seen by neurology, signed off Previously seen by neurosurgery, signed off Continue daily ASA Hypertension / CHF Amlodipine 10 mg po daily, Doxazosin 1 mg peg daily, hydralazine 10 mg per per peg q8 hours. Clonidine 0.1 mg q6h prn Echo 10/06/17 LVSF EF = 25-30%. Large left pneumothorax Resolved Chest tube placed 05/07, discontinued 05/12/17 Hepatitis C LFTs normalized Negative genotype/viral load Diabetes mellitus -overall adequately controlled. SSI Novolin R High-dose scale Off Levemir FEN PEG tube feeding with Glucerna 1.5 goal 45 cc/hr, per nutrition recommendations Loose Stools - improved patient has been checked for Cdiff on multiple occasions, most recently 12/21 C diff negative continue on lactinex bid, questran bid and monitor for improvement DVT prophylaxis Heparin Continue current treatment as of January 11, 2018 Discharge Planning Difficult placement Problem Qualifiers (1) Acute respiratory failure: Qualified Codes: J96.00 - Acute respiratory failure, unspecified whether with hypoxia or hypercapnia (2) Sacral decubitus ulcer: Qualified Codes: L89.152 - Pressure ulcer of sacral region, stage 2 (3) Chronic respiratory failure: Qualified Codes: J96.11 - Chronic respiratory failure with hypoxia (4) Shingles: Qualified Codes: B02.8 - Zoster with other complications Benja Rey MD January 11, 2018 11:17
[2018-01-11] MEDS: INSULIN DETEMIR 100 UNITS/ML VIAL SQ SCH (12:00)
--- NOTE | 2018-01-11 13:04 | RADRPT ---
EXAM DATE/TIME: 01/11/2018 13:35 [facility] COMPARISON: CHEST SINGLE AP, January 08, 2018, 3:37. INDICATIONS : Short of breath MEDICAL HISTORY : Hypertension. Diabetes mellitus type II. SURGICAL HISTORY : None. ENCOUNTER: Subsequent ACUITY: 1 week PAIN SCORE: Non-responsive. LOCATION: chest FINDINGS: Deterioration in the appearance of the chest with increasing interstitial edema and presumed small bi lateral pleural effusions. Trach tube in good position. Moderate cardiomegaly. CONCLUSION: Deterioration with significant increase in interstitial edema. Ricardo Middleton MD FACR on January 11, 2018 at 13:00 Board Certified Radiologist. This report was verified electronically.
[2018-01-11] MEDS ORDERED: SODIUM POLYSTYRENE SULFONATE SUSP 15 GM/60 ML CUP ONE (13:09)
[2018-01-11] MEDS ORDERED: SODIUM POLYSTYRENE SULFONATE SUSP 15 GM/60 ML CUP PEG ONE (14:00)
[2018-01-11] MEDS: ACETAMINOPHEN 650 MG/20.3 ML UDC PEG PRN (21:00)
[2018-01-11] MEDS: RESP: ALBUTEROL 2.5 MG/3 ML NEB (PRN) NEB (21:38)
[2018-01-12] VITALS (18 sets, daily range): BP systolic 119–146; BP diastolic 60–78; PULSE 47–80; RESP 16–22; TEMP 97.1–101.2; O2SAT 93–99
[2018-01-12] MEDS: INSULIN NovoLIN REGULAR SUPPLEMENTAL SCALE SQ SCH ×4 (00:30→18:07)
[2018-01-12] MEDS: CEFTOLOZANE-TAZOBACTAM INJ 1,500 MG in SODIUM CHLORIDE 0.9% INJ 100 ML IV SCH ×2 (00:55→06:46)
[2018-01-12] MEDS: oxyCODONE HCL ORAL CONC 5 MG/0.25 ML SYRINGE PEG PRN ×2 (00:55→17:23)
[2018-01-12] MEDS: FREE WATER PEG SCH ×4 (06:00→16:55)
[2018-01-12] MEDS: hydrALAZINE HCL 10 MG TAB PEG SCH ×3 (06:46→21:03)
[2018-01-12] MEDS: valACYclovir HCL 500 MG TAB PEG SCH ×3 (06:46→21:03)
[2018-01-12] MEDS: RESP: COLISTIN 150 MG VIAL NEB SCH ×2 (08:00→19:37)
[2018-01-12] MEDS: LACTOBACILLUS ACIDOPHILUS TAB PEG SCH ×3 (08:39→16:55)
[2018-01-12] MEDS: LISINOPRIL 5 MG TAB PEG SCH (08:39)
[2018-01-12] MEDS: CALCIUM/VITAMIN D 250 MG/125 U TAB PEG SCH ×3 (08:39→16:55)
[2018-01-12] MEDS: CHOLECALCIFEROL (VIT D3) 5000 UNIT CAP PEG SCH (08:39)
[2018-01-12] MEDS: CHOLESTYRAMINE LIGHT 4 GM PACKAGE PEG SCH ×2 (08:39→21:03)
[2018-01-12] MEDS: CALCIUM POLYCARBOPHIL 625 MG TAB PEG SCH ×2 (08:39→21:03)
[2018-01-12] MEDS: LANSOPRAZOLE SOLUTAB 30 MG TAB NG SCH (08:39)
[2018-01-12] MEDS: FUROSEMIDE 40 MG TAB PEG SCH ×2 (08:39→16:55)
[2018-01-12] MEDS: RESP: ALBUTEROL 2.5 MG/3 ML NEB (PRN) NEB (08:49)
[2018-01-12 09:10] LABS: AUTOMATED NEUTROPHIL # 8.8 TH/MM3 (1.8-7.7); BASOPHIL # 0.1 TH/MM3 (0-0.2); EOSINOPHIL # 0.8 TH/MM3 (0-0.4); EOSINOPHIL % 6.1 % (0.0-4.0); HEMATOCRIT 27.8 % (35.0-46.0); HEMOGLOBIN 9.4 GM/DL (11.6-15.3); LYMPH % 19.4 % (9.0-44.0); LYMPHOCYTE # 2.6 TH/MM3 (1.0-4.8); MEAN CELL VOLUME 92.2 FL (80.0-100.0); MEAN CORPUSCULAR HEMOGLOBIN 31.1 PG (27.0-34.0); MEAN CORPUSCULAR HGB CONC 33.8 % (32.0-36.0); MEAN PLATELET VOLUME 8.7 FL (7.0-11.0); MONO % 7.7 % (0.0-8.0); NEUT % 65.8 % (16.0-70.0); PLATELET COUNT 383 TH/MM3 (150-450); RED BLOOD COUNT 3.02 MIL/MM3 (4.00-5.30); RED CELL DISTRIBUTION WIDTH 15.3 % (11.6-17.2); WHITE BLOOD COUNT 13.4 TH/MM3 (4.0-11.0)
[2018-01-12 09:36] LABS: BICARBONATE 26.1 MEQ/L (21.0-32.0); CALCIUM 9.1 MG/DL (8.5-10.1); CREATININE 0.6 MG/DL (0.50-1.00)
[2018-01-12 10:10] LABS: BANDS 11 % (0-6); LYMPHOCYTES 22 % (9-44); METAMYELOCYTES 1 % (0-1); MONOCYTES 6 % (0-8); MYELOCYTES 2 % (0-0); NEUTROPHIL # MANUAL DIFF 8.4 TH/MM3 (1.8-7.7); PLASMA CELLS 1 % (0-0); POLYS (SEG NEUTROPHILS) 49 % (16-70)
[2018-01-12 10:12] LABS: TOXIC GRANULATION 1+ (NORMAL)
--- NOTE | 2018-01-12 10:14 | HHI.PR ---
Subjective Remarks Patient seen and examined Nonverbal Repeat potassium 5.2 Case discussed with RN Objective Vitals Vital Signs Date Time Temp Pulse Resp B/P (MAP) Pulse Ox O2 Delivery O2 Flow Rate FiO2 01/12/18 09:21 97 100 01/12/18 08:48 99 60 01/12/18 07:00 58 01/12/18 04:06 99 60 01/12/18 04:00 60 01/12/18 04:00 60 01/12/18 04:00 97.8 50 20 139/66 (90) 99 01/12/18 01:30 99 60 01/12/18 00:00 97.1 47 22 144/75 (98) 99 01/12/18 00:00 60 01/11/18 21:42 99 60 01/11/18 20:00 51 01/11/18 20:00 95 Mechanical Ventilator 60 T-Piece Humidified 01/11/18 20:00 98.8 51 22 131/60 (83) 98 01/11/18 20:00 60 01/11/18 16:00 100.3 48 22 129/55 (79) 94 01/11/18 16:00 60 01/11/18 15:57 94 60 01/11/18 15:15 60 01/11/18 15:00 40 01/11/18 14:00 46 16 126/52 (76) 95 01/11/18 12:10 80 01/11/18 12:10 96 Mechanical Ventilator 80 T-Piece 01/11/18 12:10 46 24 94 01/11/18 12:00 99.9 50 28 118/56 (76) 93 01/11/18 11:45 50 28 123/60 (81) 94 01/11/18 11:45 80 01/11/18 11:45 94 Mechanical Ventilator 80 T-Piece 01/11/18 11:27 94 50 01/11/18 11:25 50 28 94 01/11/18 11:25 60 01/11/18 11:25 94 Mechanical Ventilator 60 T-Piece 01/11/18 11:20 93 Bi-Pap 2.00 80 T-Piece Humidified 01/11/18 11:20 63 38 78 01/11/18 11:20 80 01/11/18 10:48 20 I/O 01/11/18 01/11/18 01/11/18 01/12/18 5/14/18 5/14/18 06:59 14:59 22:59 06:59 14:59 22:59 Intake Total 1140 ml 1140 ml 1225 ml Output Total 1000 ml 0 ml 200.0 ml 4 ml Balance 140 ml 0 ml 940.0 ml 1221 ml Tube Feeding 540 ml 540 ml 625 ml Other 600 ml 600 ml 600 ml Output Urine Total 1000 ml 200 ml 4 ml Tube Feeding Residual Discard 0 ml 0 ml # Bowel Movements 1 3 2 Result Diagram: 01/12/18 0849 01/12/1849 Objective Remarks GENERAL: NAD and currently on vent SKIN: shingles HEAD: Normocephalic. EYES: No scleral icterus. No injection or drainage. NECK: Supple, trachea midline. No JVD or lymphadenopathy. CARDIOVASCULAR: Regular rate and rhythm without murmurs, gallops, or rubs. RESPIRATORY: Breath sounds decrease bilaterally. No accessory muscle use. GASTROINTESTINAL: Abdomen soft, non-tender, nondistended. MUSCULOSKELETAL: No cyanosis, or edema. Restrain to LUE BACK: Nontender without obvious deformity. No CVA tenderness. Procedures PEG tube trach 05/15/17 and PEG 05/16/17 A/P Problem List: (1) Acute ischemic left middle cerebral artery (MCA) stroke ICD Code: I63.512 - Cerebral infarction due to unspecified occlusion or stenosis of left middle cerebral artery Status: Acute (2) Acute respiratory failure ICD Code: J96.00 - Acute respiratory failure, unspecified whether with hypoxia or hypercapnia Status: Resolved (3) Right hemiplegia ICD Code: G81.91 - Hemiplegia, unspecified affecting right dominant side Status: Acute (4) Sacral decubitus ulcer ICD Code: L89.159 - Pressure ulcer of sacral region, unspecified stage Status: Chronic (5) HCAP (healthcare-associated pneumonia) ICD Code: J18.9 - Pneumonia, unspecified organism Status: Acute (6) 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 ICD Code: A49.8 - Other bacterial infections of unspecified site; Z16.24 - Resistance to multiple antibiotics Status: Acute (7) CVA (cerebral vascular accident) ICD Code: I63.9 - Cerebral infarction, unspecified Status: Chronic (8) Chronic respiratory failure ICD Code: J96.10 - Chronic respiratory failure, unspecified whether with hypoxia or hypercapnia Status: Chronic (9) Shingles ICD Code: B02.9 - Zoster without complications Status: Acute Assessment and Plan 77-year-old female with 01/07 Sepsis with Recurrent Hospital Acquired/Ventilator Associated Pneumonia: On Zerbaxa per ID Repeat sputum culture 01/07with Pseudomonas MDRO and Serratia; blood cultures with no growth New acute shingles-contact isolation and continue Valtrex.Start Neurontin for pain PRN Chronic Tracheostomy /respiratory failure Pulmonary toilet, trach care Duo nebs q6h Pulmonary following, appreciate assistance S/p bronchoscopy 01/02 with removal of mucous plugs and bronchial washings done Bronchial washings culture from 01/02 with multi drug resistant, pseudomonas, serratia Urinary retention- resolved No leukocytosis U/A with large leuk esterase but many squamous cells Culture with mixed Gram positive dmitry Completed Augmentin 11/07-11/14 Leavitt removed. Previous level elevated D-dimer Ordered on 10/31 for increasing FiO2 demand Since D-dimer elevated, CTA chest obtained to r/o PE which was negative Likely elevated in light of chronic illness RUE U/S negative for DVT - elevate R arm Left MCA stroke 5.5 mm of [id number] subfalcine herniation, diagnosed 04/24. Was not a candidate for thrombolysis at that time. Increasing edema seen on repeat CT 04/28 with a reduction in midline shift on another repeat on 04/30 Neurologic condition remained poor and she underwent trach 05/15/17 and PEG Persistent right-sided hemiparesis. Previously seen by neurology, signed off Previously seen by neurosurgery, signed off Continue daily ASA Hypertension / CHF Amlodipine 10 mg po daily, Doxazosin 1 mg peg daily, hydralazine 10 mg per per peg q8 hours. Clonidine 0.1 mg q6h prn Echo 10/06/17 LVSF EF = 25-30%. Large left pneumothorax Resolved Chest tube placed 05/07, discontinued 05/12/17 Hepatitis C LFTs normalized Negative genotype/viral load Diabetes mellitus -overall adequately controlled. SSI Novolin R High-dose scale Off Levemir FEN PEG tube feeding with Glucerna 1.5 goal 45 cc/hr, per nutrition recommendations Loose Stools - improved patient has been checked for Cdiff on multiple occasions, most recently 12/21 C diff negative continue on Lactinex bid, Questran bid and monitor for improvement DVT prophylaxis Heparin Hypokalemia Give Kayexalate 15 mg 1 now BMP in AM Continue current treatment as of January 12, 2018 Discharge Planning Difficult placement Problem Qualifiers (1) Acute respiratory failure: Qualified Codes: J96.00 - Acute respiratory failure, unspecified whether with hypoxia or hypercapnia (2) Sacral decubitus ulcer: Qualified Codes: L89.152 - Pressure ulcer of sacral region, stage 2 (3) Chronic respiratory failure: Qualified Codes: J96.11 - Chronic respiratory failure with hypoxia (4) Shingles: Qualified Codes: B02.8 - Zoster with other complications Benja Rey MD January 12, 2018 10:13
[2018-01-12] MEDS ORDERED: SODIUM POLYSTYRENE SULFONATE SUSP 15 GM/60 ML CUP PEG ONE (11:00)
[2018-01-12] MEDS: CEFEPIME INJ 2,000 MG in SODIUM CHLORIDE 0.9% INJ 100 ML IV SCH ×2 (12:00→21:05)
[2018-01-12] MEDS: INSULIN DETEMIR 100 UNITS/ML VIAL SQ SCH ×2 (12:00)
--- NOTE | 2018-01-12 12:16 | HHI.IDPN ---
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 She underwent repair of her fracture, and while in the hospital recovering she had a large left MCA CVA. She has required ventilatory support, and ended up getting a tracheostomy on May 15, and a PEG placement May 16. Patient was successfully weaned from the vent. Her neurological status had some improvement , and she has been awake but only intermittently following commands. Patient has been treated for multiple infections including pneumonia and UTI. She has had infections with MDR, including resistant Pseudomonas as well as VRE. About 2 days ago, she had an episode of vomiting and witnessed aspiration. She has been febrile, and her WBC had gone up to 17,000. Chest x-ray done showed some no infiltrates especially on the right side. She also has required BiPAP. Records reviewed. Patient was last seen December 24, and completed a course of treatment for aspiration pneumonia with gram-negative siomara She finished Zosyn last December 27 and at that time she was doing well on T-piece. About a week ago she started having problem with increasing secretions, very thick, and mucous plugging. She started having some intermittent fevers january 04 She had undergone bronchoscopy January 02 Bronchial cultures grew MDR Pseudomonas, and a sensitive Serratia Her WBC is up to 16,000 She is still febrile She has been back on the vent, and currently on CPAP Has very thick light yellow green secretions Also has a lot of oral secretions Has no Leavitt Has PIV in her left foot Notes reviewed Intermittent low grade temps Rash same on L chest wall - pustulovesicular On AC PSAE R to Avycaz and Zerbaxa Awake, not following Antibiotics Zerbaxa Current Medications Medications (Trade) Dose Ordered Sig/Zeferino Route Start Time Stop Time Status Last Admin (Narcan Inj) 0.4 mg UNSCH PRN IV 04/20/17 17:15 (Prevacid Odt) 30 mg DAILY NG 05/08/17 09:00 01/12/18 08:39 (Pill Splitter) 1 ea UNSCH PRN OTHER 09/05/17 11:00 (Apresoline) 10 mg Q8HR PEG 09/24/17 14:00 01/12/18 06:46 (Norvasc) 10 mg DAILY PEG 10/04/17 09:00 01/12/18 08:39 (Oscal-D 250-125) 250 mg TID PEG 10/03/17 13:00 01/12/18 08:39 (Vitamin D3) 5,000 units DAILY PEG 10/04/17 09:00 01/12/18 08:39 (Catapres) 0.1 mg Q6H PRN PEG 10/03/17 12:30 11/27/17 00:23 (Albuterol Neb) 2.5 mg Q2HR NEB PRN NEB 10/03/17 21:45 01/12/18 08:49 (Tylenol 650 Mg/ 20 ml Liq) 650 mg Q6H PRN PEG 10/26/17 06:45 01/11/18 21:00 (D50w (Vial) Inj) 50 ml UNSCH PRN IV PUSH 11/04/17 12:30 01/03/18 14:03 (Glucagon Inj) 1 mg UNSCH PRN OTHER 11/04/17 12:30 (NovoLIN R SUPPLEMENTAL SCALE) 1 Q6H SQ 11/04/17 12:30 01/12/18 00:30 (Prinivil) 5 mg DAILY PEG 11/23/17 09:00 01/12/18 08:39 (Zofran Inj) 4 mg Q6HR PRN IV PUSH 12/08/17 05:00 01/04/18 09:23 (Tears Naturale Opth Soln) 1 drop Q8H PRN EACH EYE 12/19/17 19:30 01/10/18 09:11 (Questran Light Pkt) 4 gm BID PEG 12/25/17 09:00 01/12/18 08:39 (Levemir Inj) 7 units Q12H SQ 01/04/18 00:00 01/12/18 00:00 (Coly-Mycin M Neb) 75 mg BID NEB NEB 01/07/18 12:00 01/12/18 08:00 (Lactinex) 1 tab TID PEG 01/10/18 13:00 01/12/18 08:39 (Fiber Con) 625 mg Q12HR PEG 01/10/18 21:00 01/12/18 08:39 (Lomotil 2.5-0.025 Mg Liq) 5 ml Q6H PRN PEG 01/10/18 12:15 (Lasix) 40 mg BID@09,18 PEG 01/10/18 18:00 01/12/18 08:39 (Free Water) 250 ml Q6HR PEG 01/10/18 18:00 01/12/18 06:00 (Roxicodone Intensol Liq) 5 mg Q6H PRN PEG 01/10/18 12:15 01/12/18 00:55 (Valtrex) 1,000 mg Q8HR PEG 01/10/18 14:00 01/16/18 14:59 01/12/18 06:46 (Neurontin) 100 mg TID PRN PO 01/10/18 12:30 01/11/18 09:51 Cefepime HCl 2000 mg/Sodium Chloride 100 ml @ 200 mls/hr Q8H IV 01/12/18 12:00 01/22/18 11:59 Lines Line sites with no e.o infection. Past Medical History CVA Hypertension Diabetes Past Surgical History S/P trach 05/2017 S/P PEG 05/2017 ORIF L hip Allergies: Coded Allergies: No Known Allergies (Unverified , 04/20/17) Objective . Vital Signs Date Time Temp Pulse Resp B/P (MAP) Pulse Ox O2 Delivery O2 Flow Rate FiO2 01/12/18 09:21 97 100 01/12/18 08:48 99 60 01/12/18 08:00 98 Mechanical Ventilator 60 T-Piece Humidified 01/12/18 08:00 60 01/12/18 07:00 58 01/12/18 04:06 99 60 01/12/18 04:00 60 01/12/18 04:00 60 01/12/18 04:00 97.8 50 20 139/66 (90) 99 01/12/18 01:30 99 60 01/12/18 00:00 97.1 47 22 144/75 (98) 99 01/12/18 00:00 60 01/11/18 21:42 99 60 01/11/18 20:00 51 01/11/18 20:00 95 Mechanical Ventilator 60 T-Piece Humidified 01/11/18 20:00 98.8 51 22 131/60 (83) 98 01/11/18 20:00 60 01/11/18 16:00 100.3 48 22 129/55 (79) 94 01/11/18 16:00 60 01/11/18 15:57 94 60 01/11/18 15:15 60 01/11/18 15:00 40 01/11/18 14:00 46 16 126/52 (76) 95 . Laboratory Tests Test 01/11/18 07:23 01/12/18 08:49 White Blood Count 12.4 TH/MM3 13.4 TH/MM3 Red Blood Count 3.00 MIL/MM3 3.02 MIL/MM3 Hemoglobin 9.4 GM/DL 9.4 GM/DL Hematocrit 27.5 % 27.8 % Mean Corpuscular Volume 91.6 FL 92.2 FL Mean Corpuscular Hemoglobin 31.3 PG 31.1 PG Mean Corpuscular Hemoglobin Concent 34.2 % 33.8 % Red Cell Distribution Width 15.7 % 15.3 % Platelet Count 344 TH/MM3 383 TH/MM3 Mean Platelet Volume 9.4 FL 8.7 FL CBC Comment AUTO DIFF AUTO DIFF Differential Total Cells Counted 100 100 Neutrophils % (Manual) 58 % 49 % Band Neutrophils % 8 % 11 % Lymphocytes % 18 % 22 % Monocytes % 9 % 6 % Eosinophils % 3 % 8 % Basophils % 1 % Neutrophils # (Manual) 8.4 TH/MM3 8.4 TH/MM3 Metamyelocytes 2 % 1 % Differential Comment FINAL DIFF MANUAL FINAL DIFF MANUAL Blastocytes 1 % Platelet Estimate NORMAL NORMAL Platelet Morphology Comment CLUMPED NORMAL Red Cell Morphology Comment NORMAL NORMAL Hematology Comments Neutrophils (%) (Auto) 65.8 % Lymphocytes (%) (Auto) 19.4 % Monocytes (%) (Auto) 7.7 % Eosinophils (%) (Auto) 6.1 % Basophils (%) (Auto) 1.0 % Neutrophils # (Auto) 8.8 TH/MM3 Lymphocytes # (Auto) 2.6 TH/MM3 Monocytes # (Auto) 1.0 TH/MM3 Eosinophils # (Auto) 0.8 TH/MM3 Basophils # (Auto) 0.1 TH/MM3 Myelocytes 2 % Plasma Cells 1 % Toxic Granulation 1+ Laboratory Tests Test 01/11/18 07:25 01/11/18 09:40 01/12/18 08:49 Blood Urea Nitrogen 25 MG/DL 27 MG/DL 36 MG/DL Creatinine 0.60 MG/DL 0.57 MG/DL 0.60 MG/DL Random Glucose 165 MG/DL 188 MG/DL 85 MG/DL Total Protein 6.6 GM/DL Albumin 2.1 GM/DL Calcium Level 8.6 MG/DL 9.1 MG/DL 9.1 MG/DL Alkaline Phosphatase 332 U/L Aspartate Amino Transf (AST/SGOT) 38 U/L Alanine Aminotransferase (ALT/SGPT) 31 U/L Total Bilirubin 0.3 MG/DL Sodium Level 135 MEQ/L 132 MEQ/L 131 MEQ/L Potassium Level 5.8 MEQ/L 5.5 MEQ/L 5.2 MEQ/L Chloride Level 101 MEQ/L 98 MEQ/L 97 MEQ/L Carbon Dioxide Level 25.9 MEQ/L 26.5 MEQ/L 26.1 MEQ/L Anion Gap 8 MEQ/L 8 MEQ/L 8 MEQ/L Estimat Glomerular Filtration Rate 97 ML/MIN 103 ML/MIN 97 ML/MIN Magnesium Level 2.2 MG/DL B-Type Natriuretic Peptide 796 PG/ML Microbiology Date/Time Source Procedure Growth Status 01/09/18 15:28 Blood Peripheral Aerobic Blood Culture - Preliminary NO GROWTH IN 3 DAYS Resulted 01/09/18 15:28 Blood Peripheral Anaerobic Blood Culture - Preliminary NO GROWTH IN 3 DAYS Resulted 01/09/18 15:20 Blood Peripheral Aerobic Blood Culture - Preliminary NO GROWTH IN 3 DAYS Resulted 01/09/18 15:20 Blood Peripheral Anaerobic Blood Culture - Preliminary NO GROWTH IN 3 DAYS Resulted Imaging Chest X-Ray 01/08/18 0000 Signed Impressions: Service Date/Time: December 03:37 - CONCLUSION: No significant change. Right pleural effusion with bilateral airspace disease right greater than left. Jose R Casanova MD Chest X-Ray 12/21/17 0600 Signed Impressions: Service Date/Time: Thursday, December 21, 2017 05:51 - CONCLUSION: Some improvement in the infiltrates bilaterally. Deangelo Wren Jr., MD Upper Extremity Ultrasound 11/04/17 0000 Signed Impressions: Service Date/Time: Saturday, November 04, 2017 09:57 - CONCLUSION: No thrombus observed. Subcutaneous edema noted. eDangelo Wren Jr., MD Abdomen X-Ray 11/04/17 0000 Signed Impressions: Service Date/Time: Saturday, November 04, 2017 11:58 - CONCLUSION: Gaseous distention of bowel loops could be ileus but unchanged. Benja Ramsey MD CT Angiography 11/01/17 0000 Signed Impressions: Service Date/Time: Wednesday, November 01, 2017 16:47 - CONCLUSION: No evidence for pulmonary embolism. Please see above. Choco Mustafa MD Thoracentesis 08/05/17 1535 Signed Impressions: Service Date/Time: Saturday, August 05, 2017 16:08 - CONCLUSION: Uncomplicated CT-guided thoracentesis. Sage Adler MD Chest Ultrasound 08/02/17 0000 Signed Impressions: Service Date/Time: Tuesday, August 01, 2017 22:06 - CONCLUSION: 1. Moderate right pleural effusion, as above. Alejo De La Vega MD Hip and Pelvis X-Ray 07/09/17 0000 Signed Impressions: Service Date/Time: Sunday, July 09, 2017 14:04 - CONCLUSION: Anatomic alignment. Ricardo Middleton MD FACR Liver Ultrasound 06/19/17 0000 Signed Impressions: Service Date/Time: June 13:20 - CONCLUSION: 1. Mildly increased echotexture of the liver characteristic of hepatic steatosis. 2. Gallbladder sludge. Obdulio Sam MD Head CT 05/15/17 0000 Signed Impressions: Service Date/Time: May 19:59 - CONCLUSION: 1. 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 2. No bleed or new/acute infarct. Odbulio Simms MD Gall Bladder Ultrasound 05/08/17 0000 Signed Impressions: Service Date/Time: May 08:23 - CONCLUSION: Focally unremarkable appearance of the gallbladder Obdulio Chun MD Abdomen/Pelvis CT 05/07/17 0000 Signed Impressions: Service Date/Time: Sunday, May 07, 2017 13:23 - CONCLUSION: 1. Large left pneumothorax. 2. Bilateral lower lobe consolidation and bilateral moderate size pleural effusions. 3. Significant soft tissue thickening of the right lateral chest wall and left gluteus muscle. 4. Mild ascites. The findings were called to Dr. Carney. Deangelo Zamora MD Chest CT 04/30/17 0000 Signed Impressions: Service Date/Time: Sunday, April 30, 2017 09:20 - CONCLUSION: 1. Bilateral pulmonary infiltrates more pronounced within the lower lobes with tiny bilateral pleural effusions. Material seen filling the lower lobe bronchi bilaterally either related to purulent material or perhaps mucus plugging. Deangelo Wren Jr., MD Carotid Artery Ultrasound 04/24/17 0000 Signed Impressions: Service Date/Time: April 09:45 - CONCLUSION: 1. No hemodynamically significant carotid artery stenosis. Arnie Middleton MD Hip X-Ray 04/21/17 0000 Signed Impressions: Service Date/Time: Friday, April 21, 2017 11:36 - CONCLUSION: Fluoroscopic images during placement of intramedullary siomara left femur. Benja Ramsey MD Physical Exam GENERAL: Awake, but not following, on the vent SKIN: Warm and dry. Has varicella rash in L upper chest to back, still fresh pustulovesicular HEAD: Atraumatic. Normocephalic. No temporal wasting, or tenderness. EYES: [place] conjunctiva. No petechia or hemorrhage. Pupils equal, round and reactive to light. No scleral icterus. No injection or drainage. EARS, NOSE AND THROAT: Nose without bleeding or purulent nasal discharge. No sinus tenderness. Mucous membranes pink and moist. NECK: Trachea midline. Trach site ok. Supple and not tender, no meningeal signs CARDIOVASCULAR: Regular rate and rhythm. Soft heart sounds. RESPIRATORY: has bilateral rhonchi worse on R than L. Decreased breath sounds at the bases ABDOMEN: Soft, mildly distended, some grimacing during palpation. Bowel sounds present and normoactive. PEG site ok EXTREMITIES: No clubbing, cyanosis, or edema. Well perfused and warm. NEUROLOGICAL: Awake and focusing. Not following. 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 Fracture L hip S/P ORIF RECOMMENDATION Change Zerbaxa to Cefepime Continue Colistin nebs Add Valtrex Follow temps Follow CBC Monitor progress Contact isolation for shingles D/W Nelly Bland MD January 12, 2018 12:16
--- NOTE | 2018-01-12 19:38 | HHI.PR ---
Subjective Remarks No events overnight. Patient is on TP's with 40% FIO2. . Tolerating tube feeds. Tolerates TF to goal rate No fever Moderate amount of thick mucous BAL positive for AFB PCR sent has worsening pf oxygenation on AC 16, Fi02 60% Objective Vital Signs Vital Signs Date Time Temp Pulse Resp B/P (MAP) Pulse Ox O2 Delivery O2 Flow Rate FiO2 01/12/18 16:00 100 01/12/18 16:00 99.4 80 16 128/78 (95) 99 01/12/18 15:00 50 01/12/18 14:34 95 60 01/12/18 12:26 94 60 01/12/18 12:00 98.4 50 20 137/60 (85) 99 01/12/18 12:00 100 01/12/18 09:21 97 100 01/12/18 08:48 99 60 01/12/18 08:00 99.0 58 21 128/72 (90) 99 01/12/18 08:00 98 Mechanical Ventilator 60 T-Piece Humidified 01/12/18 08:00 60 01/12/18 07:00 58 01/12/18 04:06 99 60 01/12/18 04:00 60 01/12/18 04:00 60 01/12/18 04:00 97.8 50 20 139/66 (90) 99 01/12/18 01:30 99 60 01/12/18 00:00 97.1 47 22 144/75 (98) 99 01/12/18 00:00 60 01/11/18 21:42 99 60 01/11/18 20:00 51 01/11/18 20:00 95 Mechanical Ventilator 60 T-Piece Humidified 01/11/18 20:00 98.8 51 22 131/60 (83) 98 01/11/18 20:00 60 I/O 01/11/18 01/11/18 01/11/18 01/12/18 01/12/18 01/12/18 07:00 15:00 23:00 07:00 15:00 23:00 Intake Total 1240 ml 200 ml 1140 ml 1325 ml 200 ml 1040 ml Output Total 1000 ml 0 ml 200.0 ml 4 ml 500 ml Balance 240 ml 200 ml 940.0 ml 1321 ml 200 ml 540 ml IV Total 100 ml 200 ml 100 ml 200 ml Tube Feeding 540 ml 540 ml 625 ml 540 ml Other 600 ml 600 ml 600 ml 500 ml Output Urine Total 1000 ml 200 ml 4 ml 500 ml Tube Feeding Residual Discard 0 ml 0 ml # Bowel Movements 1 3 2 1 Result Diagram: 01/12/1884801/12/18848 Objective Remarks GENERAL: Elderly female,NAD SKIN: Warm and dry. HEAD: Normocephalic. EYES: No scleral icterus. No injection or drainage. NECK: Supple, trachea midline. No JVD or lymphadenopathy. + trach CARDIOVASCULAR: Regular rate and rhythm without murmurs, gallops, or rubs. RESPIRATORY: Breath sounds equal bilaterally. No accessory muscle use. GASTROINTESTINAL: Abdomen soft, non-tender, nondistended. MUSCULOSKELETAL: No cyanosis, or edema. BACK: Nontender without obvious deformity. No CVA tenderness. A/P Assessment and Plan Chronic resp failure, ,S/P Trach CVA Pneumonia Calcified Granuloma LLL Pseudomonas Tracheobronchitis, PLAN: Vent support with AC 16, Fi02 60% Bronchodilators, Cont TF GI/DVT prophylaxis Mucomyst Nebs IV Zosyn Colistin Nebs DW RN Check AFB PCR Chris Rizo MD January 12, 2018 19:37
[2018-01-13] VITALS (14 sets, daily range): BP systolic 96–124; BP diastolic 49–62; PULSE 46–50; RESP 12–25; TEMP 97.8–98.4; O2SAT 92–98
[2018-01-13] MEDS: ACETAMINOPHEN 650 MG/20.3 ML UDC PEG PRN (00:03)
[2018-01-13] MEDS: INSULIN DETEMIR 100 UNITS/ML VIAL SQ SCH ×3 (00:03→23:46)
[2018-01-13] MEDS: oxyCODONE HCL ORAL CONC 5 MG/0.25 ML SYRINGE PEG PRN (00:03)
[2018-01-13] MEDS: INSULIN NovoLIN REGULAR SUPPLEMENTAL SCALE SQ SCH ×5 (00:04→23:46)
[2018-01-13] MEDS: CEFEPIME INJ 2,000 MG in SODIUM CHLORIDE 0.9% INJ 100 ML IV SCH ×3 (05:08→20:54)
[2018-01-13] MEDS: FREE WATER PEG SCH ×5 (05:53→23:45)
[2018-01-13] MEDS: hydrALAZINE HCL 10 MG TAB PEG SCH ×3 (05:53→20:54)
[2018-01-13] MEDS: valACYclovir HCL 500 MG TAB PEG SCH ×3 (05:53→20:53)
[2018-01-13 07:49] LABS: BICARBONATE 26.4 MEQ/L (21.0-32.0); CALCIUM 8.4 MG/DL (8.5-10.1); CREATININE 0.83 MG/DL (0.50-1.00)
[2018-01-13] MEDS: RESP: COLISTIN 150 MG VIAL NEB SCH ×2 (08:05→19:57)
[2018-01-13] MEDS: CALCIUM POLYCARBOPHIL 625 MG TAB PEG SCH ×2 (08:44→20:53)
[2018-01-13] MEDS: CALCIUM/VITAMIN D 250 MG/125 U TAB PEG SCH ×3 (08:44→16:37)
[2018-01-13] MEDS: CHOLECALCIFEROL (VIT D3) 5000 UNIT CAP PEG SCH (08:44)
[2018-01-13] MEDS: FUROSEMIDE 40 MG TAB PEG SCH (08:44)
[2018-01-13] MEDS: LANSOPRAZOLE SOLUTAB 30 MG TAB NG SCH (08:45)
[2018-01-13] MEDS: LACTOBACILLUS ACIDOPHILUS TAB PEG SCH ×3 (08:45→16:37)
[2018-01-13] MEDS: CHOLESTYRAMINE LIGHT 4 GM PACKAGE PEG SCH ×2 (08:45→20:53)
[2018-01-13] MEDS: LISINOPRIL 5 MG TAB PEG SCH (08:45)
--- NOTE | 2018-01-13 10:07 | HHI.PR ---
Subjective Remarks Follow up for shingles, HCAP. Patient remains nonverbal. RN reports concern for worsening edema throughout face and extremities. Still with vesicular rash at left thorax/axillary. Patient with recurrent fever Tmax 101.2 last night. No other concerns reported. Objective Vitals Vital Signs Date Time Temp Pulse Resp B/P (MAP) Pulse Ox O2 Delivery O2 Flow Rate FiO2 01/13/18 08:05 93 55 01/13/18 04:19 96 55 01/13/18 04:00 97.9 46 16 117/50 (72) 95 01/13/18 04:00 55 01/13/18 00:02 94 60 01/13/18 00:00 60 01/12/18 23:50 101.2 53 16 119/76 (90) 98 01/12/18 23:00 53 01/12/18 22:30 93 60 01/12/18 20:00 60 01/12/18 20:00 99 Mechanical Ventilator 60 T-Piece Humidified 01/12/18 19:37 95 60 01/12/18 19:34 99.6 49 16 146/60 (88) 99 01/12/18 16:00 100 01/12/18 16:00 99.4 80 16 128/78 (95) 99 01/12/18 15:00 50 01/12/18 14:34 95 60 01/12/18 12:26 94 60 01/12/18 12:00 98.4 50 20 137/60 (85) 99 01/12/18 12:00 100 I/O 01/12/18 01/12/18 01/12/18 01/13/18 01/13/18 01/13/18 07:00 15:00 23:00 07:00 15:00 23:00 Intake Total 1325 ml 200 ml 1040 ml 1358 ml Output Total 4 ml 500 ml 200 ml Balance 1321 ml 200 ml 540 ml 1158 ml IV Total 100 ml 200 ml 195 ml Tube Feeding 625 ml 540 ml 663 ml Other 600 ml 500 ml 500 ml Output Urine Total 4 ml 500 ml 200 ml # Voids 3 # Bowel Movements 2 1 Result Diagram: 01/12/18 0849 01/13/18 0648 Imaging Last 72 hours Impressions Chest X-Ray 01/11/18 0000 Signed Impressions: Service Date/Time: Thursday, January 11, 2018 13:35 - CONCLUSION: Deterioration with significant increase in interstitial edema. Ricardo Middleton MD FACR Objective Remarks GENERAL: Elderly thin female in NAD. SKIN: Warm and dry. Vesicular rash at left axillary region. HEENT: Normocephalic. No scleral icterus. No injection or drainage. NECK: Trach in place. CARDIOVASCULAR: RRR with 1/6 systolic murmur noted. RESPIRATORY: Decreased breath sounds at bilateral bases. Breath sounds equal bilaterally. GASTROINTESTINAL: Abdomen soft, non-tender, nondistended. PEG in place. EXTREMITIES: Extremities without warmth or erythema. Diffuse 1+ edema throughout extremities, worse at the RUE. NEUROLOGICAL: Awake. Makes eye contact. Diffuse neurologic deficits following stroke. Nonverbal. Procedures PEG tube trach 05/15/17 and PEG 05/16/17 Medications and IVs Current Medications Medications (Trade) Dose Ordered Sig/Zeferino Route Start Time Stop Time Status Last Admin (Narcan Inj) 0.4 mg UNSCH PRN IV 04/20/17 17:15 (Prevacid Odt) 30 mg DAILY NG 05/08/17 09:00 01/13/18 08:45 (Pill Splitter) 1 ea UNSCH PRN OTHER 09/05/17 11:00 (Apresoline) 10 mg Q8HR PEG 09/24/17 14:00 01/13/18 05:53 (Norvasc) 10 mg DAILY PEG 10/04/17 09:00 01/13/18 08:45 (Oscal-D 250-125) 250 mg TID PEG 10/03/17 13:00 01/13/18 08:44 (Vitamin D3) 5,000 units DAILY PEG 10/04/17 09:00 01/13/18 08:44 (Catapres) 0.1 mg Q6H PRN PEG 10/03/17 12:30 11/27/17 00:23 (Albuterol Neb) 2.5 mg Q2HR NEB PRN NEB 10/03/17 21:45 01/12/18 08:49 (Tylenol 650 Mg/ 20 ml Liq) 650 mg Q6H PRN PEG 10/26/17 06:45 01/13/18 00:03 (D50w (Vial) Inj) 50 ml UNSCH PRN IV PUSH 11/04/17 12:30 01/03/18 14:03 (Glucagon Inj) 1 mg UNSCH PRN OTHER 11/04/17 12:30 (NovoLIN R SUPPLEMENTAL SCALE) 1 Q6H SQ 11/04/17 12:30 01/13/18 05:56 (Prinivil) 5 mg DAILY PEG 11/23/17 09:00 01/13/18 08:45 (Zofran Inj) 4 mg Q6HR PRN IV PUSH 12/08/17 05:00 01/04/18 09:23 (Tears Naturale Opth Soln) 1 drop Q8H PRN EACH EYE 12/19/17 19:30 01/10/18 09:11 (Questran Light Pkt) 4 gm BID PEG 12/25/17 09:00 01/13/18 08:45 (Levemir Inj) 7 units Q12H SQ 01/04/18 00:00 01/13/18 00:03 (Coly-Mycin M Neb) 75 mg BID NEB NEB 01/07/18 12:00 01/13/18 08:05 (Lactinex) 1 tab TID PEG 01/10/18 13:00 01/13/18 08:45 (Fiber Con) 625 mg Q12HR PEG 01/10/18 21:00 01/13/18 08:44 (Lomotil 2.5-0.025 Mg Liq) 5 ml Q6H PRN PEG 01/10/18 12:15 (Lasix) 40 mg BID@09,18 PEG 01/10/18 18:00 01/13/18 08:44 (Free Water) 250 ml Q6HR PEG 01/10/18 18:00 01/13/18 05:53 (Roxicodone Intensol Liq) 5 mg Q6H PRN PEG 01/10/18 12:15 01/13/18 00:03 (Valtrex) 1,000 mg Q8HR PEG 01/10/18 14:00 01/16/18 14:59 01/13/18 08:45 (Neurontin) 100 mg TID PRN PO 01/10/18 12:30 01/11/18 09:51 Cefepime HCl 2000 mg/Sodium Chloride 100 ml @ 200 mls/hr Q8H IV 01/12/18 12:00 01/22/18 11:59 01/13/18 05:08 A/P Problem List: (1) Acute ischemic left middle cerebral artery (MCA) stroke ICD Code: I63.512 - Cerebral infarction due to unspecified occlusion or stenosis of left middle cerebral artery Status: Acute (2) Acute respiratory failure ICD Code: J96.00 - Acute respiratory failure, unspecified whether with hypoxia or hypercapnia Status: Resolved (3) Right hemiplegia ICD Code: G81.91 - Hemiplegia, unspecified affecting right dominant side Status: Acute (4) Sacral decubitus ulcer ICD Code: L89.159 - Pressure ulcer of sacral region, unspecified stage Status: Chronic (5) HCAP (healthcare-associated pneumonia) ICD Code: J18.9 - Pneumonia, unspecified organism Status: Acute (6) 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 She underwent ORIF on 04/21/17 and on 04/24 a stroke alert was called as she was found to have right hemiparesis with left gaze. She has a poor prognosis based on her lack of overall recovery over the last 6+ months. Sepsis with Recurrent Hospital Acquired/Ventilator Associated Pneumonia: patient with +fever Tmax 101.4, leukocytosis WBC 16.6K, tachycardia HR 99. Lactic Acid 1.4. CXR 01/04/18 showed stable CXR with moderate size right pleural effusion with associated volume loss or airspace consolidation; likely small left pleural effusion; bilateral interstitial opacities Patient continues to spike fevers, Repeat CBC 01/07 shows worsening leukocytosis WBC 16K Reconsulted infectious disease as bronchial washing culture 01/02 positive for multi drug resistant pseudomonas Initially started on IV Zerbaxa, now changed to IV Cefepime per ID Blood cultures with NGTD Repeat sputum culture 01/07 with multi drug resistant pseudomonas and serratia Continue to monitor, still with fevers Tmax 101.4 on 01/12, repeat blood cultures and chest xray Herpes Zoster: patient with vesicular rash at left axillary region, consistent with shingles. Continue Valtrex Contnue gabapentin prn pain Chronic Tracheostomy /respiratory failure Pulmonary toilet, trach care Duo nebs q6h Pulm following, appreciate assistance S/p bronchoscopy 01/02 with removal of mucous plugs and bronchial washings done Bronchial washings culture from 01/02 with multi drug resistant, pseudomonas, serratia Urinary retention No leukocytosis U/A with large leuk esterase but many squamous cells Culture with mixed Gram positive dmitry Completed Augmentin 11/07-11/[address] Elevated D-dimer Ordered 10/31 for increasing FiO2 demand Since D-dimer elevated, CTA chest obtained to r/o PE which was negative Likely elevated in light of chronic illness RUE U/S negative for DVT - elevate R arm Left MCA stroke 5.5 mm of [id number] subfalcine herniation, diagnosed 04/24. Was not a candidate for thrombolysis at that time. Increasing edema seen on repeat CT 04/28 with a reduction in midline shift on another repeat on 04/30 Neurologic condition remained poor and she underwent trach 05/15/17 and PEG Persistent right-sided hemiparesis. Previously seen by neurology, signed off Previously seen by neurosurgery, signed off Continue daily ASA Hypertension / CHF Amlodipine 10 mg po daily, Doxazosin 1 mg peg daily, hydralazine 10 mg per per peg q8 hours. Clonidine 0.1 mg q6h prn Echo 10/06/17 LVSF EF = 25-30%. Large left pneumothorax Resolved Chest tube placed 05/07, discontinued 05/12/17 Hepatitis C LFTs normalized Negative genotype/viral load Diabetes mellitus SSI Novolin R High-dose scale Levemir insulin 8u Q12 FEN PEG tube feeding with Glucerna 1.5 goal 45 cc/hr, per nutrition recommendations Loose Stools patient has been checked for Cdiff on multiple occasions, most recently 12/21 Cdiff negative continue on lactinex bid, questran bid and monitor for improvement improving Hyperkalemia: K 01/06 given kayexalate x1 continue patient's lasix repeat K 5.0 today, continue to monitor Anasarca: patient with diffuse edema on exam 01/13 - changed lasix from 40mg peg bid to IV lasix 40mg bid monitor output DVT prophylaxis Heparin Problem Qualifiers (1) Acute respiratory failure: Qualified Codes: J96.00 - Acute respiratory failure, unspecified whether with hypoxia or hypercapnia (2) Sacral decubitus ulcer: Qualified Codes: L89.152 - Pressure ulcer of sacral region, stage 2 (3) Chronic respiratory failure: Qualified Codes: J96.11 - Chronic respiratory failure with hypoxia (4) Shingles: Qualified Codes: B02.8 - Zoster with other complications Denice Rene PA-C January 13, 2018 10:06 am
--- NOTE | 2018-01-13 13:00 | HHI.IDPN ---
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 She underwent repair of her fracture, and while in the hospital recovering she had a large left MCA CVA. She has required ventilatory support, and ended up getting a tracheostomy on May 15, and a PEG placement May 16. Patient was successfully weaned from the vent. Her neurological status had some improvement , and she has been awake but only intermittently following commands. Patient has been treated for multiple infections including pneumonia and UTI. She has had infections with MDR, including resistant Pseudomonas as well as VRE. About 2 days ago, she had an episode of vomiting and witnessed aspiration. She has been febrile, and her WBC had gone up to 17,000. Chest x-ray done showed some no infiltrates especially on the right side. She also has required BiPAP. Records reviewed. Patient was last seen December 24, and completed a course of treatment for aspiration pneumonia with gram-negative siomara She finished Zosyn last December 27 and at that time she was doing well on T-piece. About a week ago she started having problem with increasing secretions, very thick, and mucous plugging. She started having some intermittent fevers january 04 She had undergone bronchoscopy January 02 Bronchial cultures grew MDR Pseudomonas, and a sensitive Serratia Her WBC is up to 16,000 She is still febrile She has been back on the vent, and currently on CPAP Has very thick light yellow green secretions Also has a lot of oral secretions Has no Leavitt Has PIV in her left foot Notes reviewed Temps higher in the last 24 hours Remains on the vent, on AC Rash same on L chest wall - pustulovesicular PSAE R to Avycaz and Zerbaxa Antibiotics Cefepime Colistin nebs Current Medications Medications (Trade) Dose Ordered Sig/Zeferino Route Start Time Stop Time Status Last Admin (Narcan Inj) 0.4 mg UNSCH PRN IV 04/20/17 17:15 (Prevacid Odt) 30 mg DAILY NG 05/08/17 09:00 01/13/18 08:45 (Pill Splitter) 1 ea UNSCH PRN OTHER 09/05/17 11:00 (Apresoline) 10 mg Q8HR PEG 09/24/17 14:00 01/13/18 12:36 (Norvasc) 10 mg DAILY PEG 10/04/17 09:00 01/13/18 08:45 (Oscal-D 250-125) 250 mg TID PEG 10/03/17 13:00 01/13/18 12:36 (Vitamin D3) 5,000 units DAILY PEG 10/04/17 09:00 01/13/18 08:44 (Catapres) 0.1 mg Q6H PRN PEG 10/03/17 12:30 11/27/17 00:23 (Albuterol Neb) 2.5 mg Q2HR NEB PRN NEB 10/03/17 21:45 01/12/18 08:49 (Tylenol 650 Mg/ 20 ml Liq) 650 mg Q6H PRN PEG 10/26/17 06:45 01/13/18 00:03 (D50w (Vial) Inj) 50 ml UNSCH PRN IV PUSH 11/04/17 12:30 01/03/18 14:03 (Glucagon Inj) 1 mg UNSCH PRN OTHER 11/04/17 12:30 (NovoLIN R SUPPLEMENTAL SCALE) 1 Q6H SQ 11/04/17 12:30 01/13/18 12:35 (Prinivil) 5 mg DAILY PEG 11/23/17 09:00 01/13/18 08:45 (Zofran Inj) 4 mg Q6HR PRN IV PUSH 12/08/17 05:00 01/04/18 09:23 (Tears Naturale Opth Soln) 1 drop Q8H PRN EACH EYE 12/19/17 19:30 01/10/18 09:11 (Questran Light Pkt) 4 gm BID PEG 12/25/17 09:00 01/13/18 08:45 (Levemir Inj) 7 units Q12H SQ 01/04/18 00:00 01/13/18 12:34 (Coly-Mycin M Neb) 75 mg BID NEB NEB 01/07/18 12:00 01/13/18 08:05 (Lactinex) 1 tab TID PEG 01/10/18 13:00 01/13/18 12:36 (Fiber Con) 625 mg Q12HR PEG 01/10/18 21:00 01/13/18 08:44 (Lomotil 2.5-0.025 Mg Liq) 5 ml Q6H PRN PEG 01/10/18 12:15 (Free Water) 250 ml Q6HR PEG 01/10/18 18:00 01/13/18 12:00 (Roxicodone Intensol Liq) 5 mg Q6H PRN PEG 01/10/18 12:15 01/13/18 00:03 (Valtrex) 1,000 mg Q8HR PEG 01/10/18 14:00 01/16/18 14:59 01/13/18 08:45 (Neurontin) 100 mg TID PRN PO 01/10/18 12:30 01/11/18 09:51 Cefepime HCl 2000 mg/Sodium Chloride 100 ml @ 200 mls/hr Q8H IV 01/12/18 12:00 01/22/18 11:59 01/13/18 05:08 (Lasix Inj) 40 mg BID@09,18 IV PUSH 01/13/18 18:00 Lines Line sites with no e.o infection. Past Medical History CVA Hypertension Diabetes Past Surgical History S/P trach 05/2017 S/P PEG 05/2017 ORIF L hip Allergies: Coded Allergies: No Known Allergies (Unverified , 04/20/17) Objective . Vital Signs Date Time Temp Pulse Resp B/P (MAP) Pulse Ox O2 Delivery O2 Flow Rate FiO2 01/13/18 11:29 94 55 01/13/18 11:07 98.4 50 16 124/62 (82) 98 01/13/18 08:05 93 55 01/13/18 04:19 96 55 01/13/18 04:00 97.9 46 16 117/50 (72) 95 01/13/18 04:00 55 01/13/18 00:02 94 60 01/13/18 00:00 60 01/12/18 23:50 101.2 53 16 119/76 (90) 98 01/12/18 23:00 53 01/12/18 22:30 93 60 01/12/18 20:00 60 01/12/18 20:00 99 Mechanical Ventilator 60 T-Piece Humidified 01/12/18 19:37 95 60 01/12/18 19:34 99.6 49 16 146/60 (88) 99 01/12/18 16:00 100 01/12/18 16:00 99.4 80 16 128/78 (95) 99 01/12/18 15:00 50 01/12/18 14:34 95 60 . Laboratory Tests Test 01/12/18 08:49 White Blood Count 13.4 TH/MM3 Red Blood Count 3.02 MIL/MM3 Hemoglobin 9.4 GM/DL Hematocrit 27.8 % Mean Corpuscular Volume 92.2 FL Mean Corpuscular Hemoglobin 31.1 PG Mean Corpuscular Hemoglobin Concent 33.8 % Red Cell Distribution Width 15.3 % Platelet Count 383 TH/MM3 Mean Platelet Volume 8.7 FL Neutrophils (%) (Auto) 65.8 % Lymphocytes (%) (Auto) 19.4 % Monocytes (%) (Auto) 7.7 % Eosinophils (%) (Auto) 6.1 % Basophils (%) (Auto) 1.0 % Neutrophils # (Auto) 8.8 TH/MM3 Lymphocytes # (Auto) 2.6 TH/MM3 Monocytes # (Auto) 1.0 TH/MM3 Eosinophils # (Auto) 0.8 TH/MM3 Basophils # (Auto) 0.1 TH/MM3 CBC Comment AUTO DIFF Differential Total Cells Counted 100 Neutrophils % (Manual) 49 % Band Neutrophils % 11 % Lymphocytes % 22 % Monocytes % 6 % Eosinophils % 8 % Neutrophils # (Manual) 8.4 TH/MM3 Metamyelocytes 1 % Myelocytes 2 % Differential Comment FINAL DIFF MANUAL Plasma Cells 1 % Toxic Granulation 1+ Platelet Estimate NORMAL Platelet Morphology Comment NORMAL Red Cell Morphology Comment NORMAL Laboratory Tests Test 01/12/18 08:49 01/13/18 06:48 Blood Urea Nitrogen 36 MG/DL 44 MG/DL Creatinine 0.60 MG/DL 0.83 MG/DL Random Glucose 85 MG/DL 149 MG/DL Calcium Level 9.1 MG/DL 8.4 MG/DL Sodium Level 131 MEQ/L 132 MEQ/L Potassium Level 5.2 MEQ/L 5.0 MEQ/L Chloride Level 97 MEQ/L 97 MEQ/L Carbon Dioxide Level 26.1 MEQ/L 26.4 MEQ/L Anion Gap 8 MEQ/L 9 MEQ/L Estimat Glomerular Filtration Rate 97 ML/MIN 67 ML/MIN B-Type Natriuretic Peptide 796 PG/ML Microbiology Date/Time Source Procedure Growth Status 01/13/18 11:37 Blood Peripheral Aerobic Blood Culture Pending Received 01/13/18 11:37 Blood Peripheral Anaerobic Blood Culture Pending Received 01/13/18 11:30 Blood Peripheral Aerobic Blood Culture Pending Received 01/13/18 11:30 Blood Peripheral Anaerobic Blood Culture Pending Received Imaging Chest X-Ray 01/08/18 0000 Signed Impressions: Service Date/Time: December 03:37 - CONCLUSION: No significant change. Right pleural effusion with bilateral airspace disease right greater than left. Jose R Casanova MD Chest X-Ray 12/21/17 0600 Signed Impressions: Service Date/Time: Thursday, December 21, 2017 05:51 - CONCLUSION: Some improvement in the infiltrates bilaterally. Deangelo Wren Jr., MD Upper Extremity Ultrasound 11/04/17 0000 Signed Impressions: Service Date/Time: Saturday, November 04, 2017 09:57 - CONCLUSION: No thrombus observed. Subcutaneous edema noted. Deangelo Wren Jr., MD Abdomen X-Ray 11/04/17 0000 Signed Impressions: Service Date/Time: Saturday, November 04, 2017 11:58 - CONCLUSION: Gaseous distention of bowel loops could be ileus but unchanged. Benja Ramsey MD CT Angiography 11/01/17 0000 Signed Impressions: Service Date/Time: Wednesday, November 01, 2017 16:47 - CONCLUSION: No evidence for pulmonary embolism. Please see above. Choco Mustafa MD Thoracentesis 08/05/17 1535 Signed Impressions: Service Date/Time: Saturday, August 05, 2017 16:08 - CONCLUSION: Uncomplicated CT-guided thoracentesis. Sage Adler MD Chest Ultrasound 08/02/17 0000 Signed Impressions: Service Date/Time: Tuesday, August 01, 2017 22:06 - CONCLUSION: 1. Moderate right pleural effusion, as above. Alejo De La Vega MD Hip and Pelvis X-Ray 07/09/17 0000 Signed Impressions: Service Date/Time: Sunday, July 09, 2017 14:04 - CONCLUSION: Anatomic alignment. Ricardo Middleton MD FACR Liver Ultrasound 06/19/17 0000 Signed Impressions: Service Date/Time: June 13:20 - CONCLUSION: 1. Mildly increased echotexture of the liver characteristic of hepatic steatosis. 2. Gallbladder sludge. Obdulio Sam MD Head CT 05/15/17 0000 Signed Impressions: Service Date/Time: May 19:59 - CONCLUSION: 1. 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 2. No bleed or new/acute infarct. Obdulio Simms MD Gall Bladder Ultrasound 05/08/17 0000 Signed Impressions: Service Date/Time: May 08:23 - CONCLUSION: Focally unremarkable appearance of the gallbladder Obdulio Chun MD Abdomen/Pelvis CT 05/07/17 0000 Signed Impressions: Service Date/Time: Sunday, May 07, 2017 13:23 - CONCLUSION: 1. Large left pneumothorax. 2. Bilateral lower lobe consolidation and bilateral moderate size pleural effusions. 3. Significant soft tissue thickening of the right lateral chest wall and left gluteus muscle. 4. Mild ascites. The findings were called to Dr. Carney. Deangelo Zamora MD Chest CT 04/30/17 0000 Signed Impressions: Service Date/Time: Sunday, April 30, 2017 09:20 - CONCLUSION: 1. Bilateral pulmonary infiltrates more pronounced within the lower lobes with tiny bilateral pleural effusions. Material seen filling the lower lobe bronchi bilaterally either related to purulent material or perhaps mucus plugging. Deangelo Wren Jr., MD Carotid Artery Ultrasound 04/24/17 0000 Signed Impressions: Service Date/Time: April 09:45 - CONCLUSION: 1. No hemodynamically significant carotid artery stenosis. Arnie Middleton MD Hip X-Ray 04/21/17 0000 Signed Impressions: Service Date/Time: Friday, April 21, 2017 11:36 - CONCLUSION: Fluoroscopic images during placement of intramedullary siomara left femur. Benja Ramsey MD Physical Exam GENERAL: Sleeping, on the vent, NAD SKIN: Warm and dry. Has varicella rash in L upper chest to back, still fresh pustulovesicular, same HEAD: Atraumatic. Normocephalic. No temporal wasting, or tenderness. EYES: [place] conjunctiva. No petechia or hemorrhage. Pupils equal, round and reactive to light. No scleral icterus. No injection or drainage. EARS, NOSE AND THROAT: Nose without bleeding or purulent nasal discharge. No sinus tenderness. Mucous membranes pink and moist. NECK: Trachea midline. Trach site ok. Supple and not tender, no meningeal signs CARDIOVASCULAR: Regular rate and rhythm. Soft heart sounds. RESPIRATORY: has bilateral rhonchi worse on R than L. Decreased breath sounds at the bases ABDOMEN: Soft, mildly distended, some grimacing during palpation. Bowel sounds present and normoactive. PEG site ok EXTREMITIES: No clubbing, cyanosis, or edema. Well perfused and warm. NEUROLOGICAL: Awake and focusing. Not following. 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 Fracture L hip S/P ORIF (+) AFB in bronch, grew on 10th day, MTB PCR negative - likely atypical mycobacteria RECOMMENDATION Continue Cefepime Continue Colistin nebs Continue Valtrex Follow temps Follow CBC Monitor progress Contact isolation for shingles Repeat BC CXR tomorrow Nelly Mihcaud MD January 13, 2018 13:00
[2018-01-13] MEDS: FUROSEMIDE 40 MG/4 ML VIAL IV PUSH SCH (18:00)
--- NOTE | 2018-01-13 18:48 | HHI.PR ---
Subjective Remarks No events overnight. . Tolerating tube feeds. Tolerates TF to goal rate No fever Moderate amount of thick mucous BAL positive for AFB PCR Neg for MTB on AC 16, Fi02 55% Objective Vital Signs Vital Signs Date Time Temp Pulse Resp B/P (MAP) Pulse Ox O2 Delivery O2 Flow Rate FiO2 01/13/18 16:34 48 01/13/18 16:26 55 01/13/18 16:08 92 Mechanical Ventilator 01/13/18 16:00 97.8 50 12 96/49 (65) 92 01/13/18 15:22 96 55 01/13/18 13:53 93 55 01/13/18 12:00 55 01/13/18 11:29 94 55 01/13/18 11:07 98.4 50 16 124/62 (82) 98 01/13/18 08:05 93 55 01/13/18 08:00 55 01/13/18 04:19 96 55 01/13/18 04:00 97.9 46 16 117/50 (72) 95 01/13/18 04:00 55 01/13/18 00:02 94 60 01/13/18 00:00 60 01/12/18 23:50 101.2 53 16 119/76 (90) 98 01/12/18 23:00 53 01/12/18 22:30 93 60 01/12/18 20:00 60 01/12/18 20:00 99 Mechanical Ventilator 60 T-Piece Humidified 01/12/18 19:37 95 60 01/12/18 19:34 99.6 49 16 146/60 (88) 99 I/O 01/12/18 01/12/18 01/12/18 01/13/18 01/13/18 01/13/18 07:00 15:00 23:00 07:00 15:00 23:00 Intake Total 1325 ml 200 ml 1040 ml 1358 ml 1140 ml Output Total 4 ml 500 ml 200 ml 600 ml Balance 1321 ml 200 ml 540 ml 1158 ml 540 ml IV Total 100 ml 200 ml 195 ml Tube Feeding 625 ml 540 ml 663 ml 540 ml Other 600 ml 500 ml 500 ml 600 ml Output Urine Total 4 ml 500 ml 200 ml 600 ml # Voids 3 # Bowel Movements 2 1 1 Result Diagram: 01/12/18 0849 01/13/18 0648 Objective Remarks GENERAL: Elderly female,NAD SKIN: Warm and dry. HEAD: Normocephalic. EYES: No scleral icterus. No injection or drainage. NECK: Supple, trachea midline. No JVD or lymphadenopathy. + trach CARDIOVASCULAR: Regular rate and rhythm without murmurs, gallops, or rubs. RESPIRATORY: Breath sounds equal bilaterally. No accessory muscle use. GASTROINTESTINAL: Abdomen soft, non-tender, nondistended. MUSCULOSKELETAL: No cyanosis, or edema. BACK: Nontender without obvious deformity. No CVA tenderness. 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
[2018-01-13] MEDS: RESP: ALBUTEROL 2.5 MG/3 ML NEB (PRN) NEB (19:57)
[2018-01-14] VITALS (13 sets, daily range): BP systolic 109–129; BP diastolic 50–78; PULSE 30–49; RESP 12–22; TEMP 96.9–98.4; O2SAT 93–99
[2018-01-14] MEDS: oxyCODONE HCL ORAL CONC 5 MG/0.25 ML SYRINGE PEG PRN (02:55)
[2018-01-14] MEDS: CEFEPIME INJ 2,000 MG in SODIUM CHLORIDE 0.9% INJ 100 ML IV SCH ×3 (03:54→19:31)
--- NOTE | 2018-01-14 04:32 | RADRPT ---
EXAM DATE/TIME: 01/14/2018 03:56 [facility] COMPARISON: CHEST SINGLE AP, January 11, 2018, 13:35. INDICATIONS : Short of breath. MEDICAL HISTORY : Hypertension. Diabetes mellitus type II. SURGICAL HISTORY : Tracheotomy ENCOUNTER: Subsequent ACUITY: 2 months PAIN SCORE: 0/10 LOCATION: Bilateral chest FINDINGS: 2 portable frontal views of the chest show the patient obliqued towards the right. Diffuse bilateral pulmonary infiltrates and bilateral pleural effusions are unchanged. Tracheostomy tube noted. Heart i s normal in size. CONCLUSION: Unchanged diffuse pulmonary infiltrates with small effusions. Deangelo Wren Jr., MD on January 14, 2018 at 4:29 Board Certified Radiologist. This report was verified electronically.
[2018-01-14] MEDS: hydrALAZINE HCL 10 MG TAB PEG SCH ×3 (05:35→22:00)
[2018-01-14] MEDS: FREE WATER PEG SCH ×3 (05:36→17:09)
[2018-01-14] MEDS: valACYclovir HCL 500 MG TAB PEG SCH ×3 (06:07→22:10)
[2018-01-14] MEDS: INSULIN NovoLIN REGULAR SUPPLEMENTAL SCALE SQ SCH ×3 (06:10→17:08)
[2018-01-14] MEDS: LISINOPRIL 5 MG TAB PEG SCH (08:15)
[2018-01-14] MEDS: CHOLECALCIFEROL (VIT D3) 5000 UNIT CAP PEG SCH (08:15)
[2018-01-14] MEDS: CALCIUM/VITAMIN D 250 MG/125 U TAB PEG SCH ×3 (08:15→17:08)
[2018-01-14] MEDS: LACTOBACILLUS ACIDOPHILUS TAB PEG SCH ×3 (08:15→17:08)
[2018-01-14] MEDS: CHOLESTYRAMINE LIGHT 4 GM PACKAGE PEG SCH ×2 (08:15→21:00)
[2018-01-14] MEDS: CALCIUM POLYCARBOPHIL 625 MG TAB PEG SCH ×2 (08:15→21:00)
[2018-01-14] MEDS: LANSOPRAZOLE SOLUTAB 30 MG TAB NG SCH (08:15)
[2018-01-14] MEDS: FUROSEMIDE 40 MG/4 ML VIAL IV PUSH SCH ×2 (08:16→17:08)
[2018-01-14] MEDS: RESP: COLISTIN 150 MG VIAL NEB SCH ×2 (08:32→20:00)
--- NOTE | 2018-01-14 09:56 | HHI.PR ---
Subjective Remarks Bradycardia is present. No respiratory distress. No evidence of pain. Objective Vital Signs Date Time Temp Pulse Resp B/P (MAP) Pulse Ox O2 Delivery O2 Flow Rate FiO2 01/14/18 09:25 38 01/14/18 09:17 55 01/14/18 09:14 92 Mechanical Ventilator 01/14/18 08:33 95 55 01/14/18 08:00 98.4 38 14 121/78 (92) 98 01/14/18 04:23 94 55 01/14/18 04:00 97.6 38 16 113/58 (76) 93 01/14/18 04:00 55 01/14/18 00:00 39 01/14/18 00:00 98.2 49 16 111/50 (70) 96 01/14/18 00:00 55 01/13/18 23:58 94 55 01/13/18 20:03 95 55 01/13/18 20:00 47 01/13/18 20:00 94 Mechanical Ventilator 55 01/13/18 20:00 55 01/13/18 19:08 98.0 47 25 121/56 (77) 94 01/13/18 16:34 48 01/13/18 16:26 55 01/13/18 16:08 92 Mechanical Ventilator 01/13/18 16:00 97.8 50 12 96/49 (65) 92 01/13/18 15:22 96 55 01/13/18 13:53 93 55 01/13/18 12:00 55 01/13/18 11:29 94 55 01/13/18 11:07 98.4 50 16 124/62 (82) 98 I/O 01/13/18 01/13/18 01/13/18 01/14/18 01/14/18 01/14/18 07:00 15:00 23:00 07:00 15:00 23:00 Intake Total 1358 ml 1140 ml 1190 ml Output Total 200 ml 600 ml Balance 1158 ml 540 ml 1190 ml IV Total 195 ml 190 ml Tube Feeding 663 ml 540 ml 500 ml Other 500 ml 600 ml 500 ml Output Urine Total 200 ml 600 ml # Voids 3 3 # Bowel Movements 1 0 Result Diagram: 01/12/18 0849 01/13/18 0648 Procedures Tracheostomy 05/15/17 PEG 05/16/17 Objective Remarks GENERAL: NAD, A&Ox0 HEAD: Normocephalic. NECK: Supple, trachea midline. No lymphadenopathy. Tracheostomy present. EYES: No scleral icterus. No injection or drainage. CARDIOVASCULAR: Regular rate and rhythm without murmurs, gallops, or rubs. RESPIRATORY: Breath sounds equal bilaterally. No accessory muscle use. GASTROINTESTINAL: Abdomen soft, non-tender, nondistended. MUSCULOSKELETAL: No cyanosis, or edema. SKIN: Warm and dry. NEURO: No focal neurological deficitis. A/P Problem List: (1) CVA (cerebral vascular accident) ICD Code: I63.9 - Cerebral infarction, unspecified Status: Chronic Assessment and Plan 76 y/o female with HTN, DM admitted for DKA and hip fracture s/p large CVA . Her story status stable. Continue to monitor bradycardia. Etiology for bradycardia is not related to beta-selena. Beta blockers have been discontinued. Possible etiologies related to brain damage. Bradycardia Etiology may be related to chronic brain damage. Follow on telemetry follow blood pressures Avoid beta blockers. 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 No expectations for recovery Expectations are for chronic debility of motor function in cognitive status Overall poor prognosis Daily aspirin continued Sacral decubitus ulcer Continue wound care Calcium Alginate History of urinary retention Catheter as needed Follow urine output Diabetes mellitus type 2 Follow blood sugars Insulin sliding scale Diabetic diet Hypertension Follow blood pressures Continue present treatments Adjust as needed 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
[2018-01-14 10:16] LABS: AUTOMATED NEUTROPHIL # 13.1 TH/MM3 (1.8-7.7); BASOPHIL # 0.2 TH/MM3 (0-0.2); BASOPHIL % 1.2 % (0.0-2.0); EOSINOPHIL # 0.6 TH/MM3 (0-0.4); EOSINOPHIL % 3.7 % (0.0-4.0); HEMATOCRIT 26.4 % (35.0-46.0); HEMOGLOBIN 8.6 GM/DL (11.6-15.3); LYMPH % 14.3 % (9.0-44.0); LYMPHOCYTE # 2.5 TH/MM3 (1.0-4.8); MEAN CELL VOLUME 94.1 FL (80.0-100.0); MEAN CORPUSCULAR HEMOGLOBIN 30.7 PG (27.0-34.0); MEAN CORPUSCULAR HGB CONC 32.6 % (32.0-36.0); MEAN PLATELET VOLUME 9.5 FL (7.0-11.0); MONO % 5.1 % (0.0-8.0); MONOCYTE # 0.9 TH/MM3 (0-0.9); NEUT % 75.7 % (16.0-70.0); PLATELET COUNT 376 TH/MM3 (150-450); RED CELL DISTRIBUTION WIDTH 15.9 % (11.6-17.2); WHITE BLOOD COUNT 17.4 TH/MM3 (4.0-11.0)
[2018-01-14 11:03] LABS: BANDS 9 % (0-6); BASOPHILS 2 % (0-2); LYMPHOCYTES 20 % (9-44); METAMYELOCYTES 3 % (0-1); MONOCYTES 3 % (0-8); MYELOCYTES 3 % (0-0); NEUTROPHIL # MANUAL DIFF 12.2 TH/MM3 (1.8-7.7); POLYS (SEG NEUTROPHILS) 55 % (16-70)
[2018-01-14 11:05] LABS: BICARBONATE 22.6 MEQ/L (21.0-32.0); CALCIUM 8.8 MG/DL (8.5-10.1); CREATININE 1.35 MG/DL (0.50-1.00); MAGNESIUM 2.5 MG/DL (1.5-2.5)
--- NOTE | 2018-01-14 12:21 | HHI.IDPN ---
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 She underwent repair of her fracture, and while in the hospital recovering she had a large left MCA CVA. She has required ventilatory support, and ended up getting a tracheostomy on May 15, and a PEG placement May 16. Patient was successfully weaned from the vent. Her neurological status had some improvement , and she has been awake but only intermittently following commands. Patient has been treated for multiple infections including pneumonia and UTI. She has had infections with MDR, including resistant Pseudomonas as well as VRE. About 2 days ago, she had an episode of vomiting and witnessed aspiration. She has been febrile, and her WBC had gone up to 17,000. Chest x-ray done showed some no infiltrates especially on the right side. She also has required BiPAP. Records reviewed. Patient was last seen December 24, and completed a course of treatment for aspiration pneumonia with gram-negative siomara She finished Zosyn last December 27 and at that time she was doing well on T-piece. About a week ago she started having problem with increasing secretions, very thick, and mucous plugging. She started having some intermittent fevers january 04 She had undergone bronchoscopy January 02 Bronchial cultures grew MDR Pseudomonas, and a sensitive Serratia Her WBC is up to 16,000 She is still febrile She has been back on the vent, and currently on CPAP Has very thick light yellow green secretions Also has a lot of oral secretions Has no Leavitt Has PIV in her left foot Notes reviewed Temps better overnight Remains on the vent, on AC WBC higher Creatinine worse CXR today with stable infiltrates Rash same on L chest wall - pustulovesicular PSAE R to Avycaz and Zerbaxa Antibiotics Cefepime Colistin nebs Current Medications Medications (Trade) Dose Ordered Sig/Zeferino Route Start Time Stop Time Status Last Admin (Narcan Inj) 0.4 mg UNSCH PRN IV 04/20/17 17:15 (Prevacid Odt) 30 mg DAILY NG 05/08/17 09:00 01/14/18 08:15 (Pill Splitter) 1 ea UNSCH PRN OTHER 09/05/17 11:00 (Apresoline) 10 mg Q8HR PEG 09/24/17 14:00 01/13/18 12:36 (Norvasc) 10 mg DAILY PEG 10/04/17 09:00 01/14/18 08:15 (Oscal-D 250-125) 250 mg TID PEG 10/03/17 13:00 01/14/18 08:15 (Vitamin D3) 5,000 units DAILY PEG 10/04/17 09:00 01/14/18 08:15 (Catapres) 0.1 mg Q6H PRN PEG 10/03/17 12:30 11/27/17 00:23 (Albuterol Neb) 2.5 mg Q2HR NEB PRN NEB 10/03/17 21:45 01/13/18 19:57 (Tylenol 650 Mg/ 20 ml Liq) 650 mg Q6H PRN PEG 10/26/17 06:45 01/13/18 00:03 (D50w (Vial) Inj) 50 ml UNSCH PRN IV PUSH 11/04/17 12:30 01/03/18 14:03 (Glucagon Inj) 1 mg UNSCH PRN OTHER 11/04/17 12:30 (NovoLIN R SUPPLEMENTAL SCALE) 1 Q6H SQ 11/04/17 12:30 01/14/18 06:10 (Prinivil) 5 mg DAILY PEG 11/23/17 09:00 01/14/18 08:15 (Zofran Inj) 4 mg Q6HR PRN IV PUSH 12/08/17 05:00 01/04/18 09:23 (Tears Naturale Opth Soln) 1 drop Q8H PRN EACH EYE 12/19/17 19:30 01/10/18 09:11 (Questran Light Pkt) 4 gm BID PEG 12/25/17 09:00 01/14/18 08:15 (Levemir Inj) 7 units Q12H SQ 01/04/18 00:00 01/13/18 23:46 (Coly-Mycin M Neb) 75 mg BID NEB NEB 01/07/18 12:00 01/14/18 08:32 (Lactinex) 1 tab TID PEG 01/10/18 13:00 01/14/18 08:15 (Fiber Con) 625 mg Q12HR PEG 01/10/18 21:00 01/14/18 08:15 (Lomotil 2.5-0.025 Mg Liq) 5 ml Q6H PRN PEG 01/10/18 12:15 (Free Water) 250 ml Q6HR PEG 01/10/18 18:00 01/14/18 05:36 (Roxicodone Intensol Liq) 5 mg Q6H PRN PEG 01/10/18 12:15 01/14/18 02:55 (Valtrex) 1,000 mg Q8HR PEG 01/10/18 14:00 01/16/18 14:59 01/14/18 06:07 (Neurontin) 100 mg TID PRN PO 01/10/18 12:30 01/11/18 09:51 Cefepime HCl 2000 mg/Sodium Chloride 100 ml @ 200 mls/hr Q8H IV 01/12/18 12:00 01/22/18 11:59 01/14/18 03:54 (Lasix Inj) 40 mg BID@09,18 IV PUSH 01/13/18 18:00 01/14/18 08:16 Lines Line sites with no e.o infection. Past Medical History Reviewed Allergies: Coded Allergies: No Known Allergies (Unverified , 04/20/17) Objective . Vital Signs Date Time Temp Pulse Resp B/P (MAP) Pulse Ox O2 Delivery O2 Flow Rate FiO2 01/14/18 11:47 93 55 01/14/18 09:25 38 01/14/18 09:17 55 01/14/18 09:14 92 Mechanical Ventilator 01/14/18 08:33 95 55 01/14/18 08:00 98.4 38 14 121/78 (92) 98 01/14/18 04:23 94 55 01/14/18 04:00 97.6 38 16 113/58 (76) 93 01/14/18 04:00 55 01/14/18 00:00 39 01/14/18 00:00 98.2 49 16 111/50 (70) 96 01/14/18 00:00 55 01/13/18 23:58 94 55 01/13/18 20:03 95 55 01/13/18 20:00 47 01/13/18 20:00 94 Mechanical Ventilator 55 01/13/18 20:00 55 01/13/18 19:08 98.0 47 25 121/56 (77) 94 01/13/18 16:34 48 01/13/18 16:26 55 01/13/18 16:08 92 Mechanical Ventilator 01/13/18 16:00 97.8 50 12 96/49 (65) 92 01/13/18 15:22 96 55 01/13/18 13:53 93 55 . Laboratory Tests Test 01/14/18 09:15 White Blood Count 17.4 TH/MM3 Red Blood Count 2.80 MIL/MM3 Hemoglobin 8.6 GM/DL Hematocrit 26.4 % Mean Corpuscular Volume 94.1 FL Mean Corpuscular Hemoglobin 30.7 PG Mean Corpuscular Hemoglobin Concent 32.6 % Red Cell Distribution Width 15.9 % Platelet Count 376 TH/MM3 Mean Platelet Volume 9.5 FL Neutrophils (%) (Auto) 75.7 % Lymphocytes (%) (Auto) 14.3 % Monocytes (%) (Auto) 5.1 % Eosinophils (%) (Auto) 3.7 % Basophils (%) (Auto) 1.2 % Neutrophils # (Auto) 13.1 TH/MM3 Lymphocytes # (Auto) 2.5 TH/MM3 Monocytes # (Auto) 0.9 TH/MM3 Eosinophils # (Auto) 0.6 TH/MM3 Basophils # (Auto) 0.2 TH/MM3 CBC Comment AUTO DIFF Differential Total Cells Counted 100 Neutrophils % (Manual) 55 % Band Neutrophils % 9 % Lymphocytes % 20 % Monocytes % 3 % Eosinophils % 5 % Basophils % 2 % Neutrophils # (Manual) 12.2 TH/MM3 Metamyelocytes 3 % Myelocytes 3 % Differential Comment FINAL DIFF MANUAL Platelet Estimate NORMAL Platelet Morphology Comment NORMAL Laboratory Tests Test 01/13/18 06:48 01/14/18 09:15 Blood Urea Nitrogen 44 MG/DL 65 MG/DL Creatinine 0.83 MG/DL 1.35 MG/DL Random Glucose 149 MG/DL 190 MG/DL Calcium Level 8.4 MG/DL 8.8 MG/DL Sodium Level 132 MEQ/L 129 MEQ/L Potassium Level 5.0 MEQ/L 6.3 MEQ/L Chloride Level 97 MEQ/L 95 MEQ/L Carbon Dioxide Level 26.4 MEQ/L 22.6 MEQ/L Anion Gap 9 MEQ/L 11 MEQ/L Estimat Glomerular Filtration Rate 67 ML/MIN 38 ML/MIN Magnesium Level 2.5 MG/DL Microbiology Date/Time Source Procedure Growth Status 01/13/18 11:37 Blood Peripheral Aerobic Blood Culture - Preliminary NO GROWTH IN 1 DAY Resulted 01/13/18 11:37 Blood Peripheral Anaerobic Blood Culture - Preliminary NO GROWTH IN 1 DAY Resulted 01/13/18 11:30 Blood Peripheral Aerobic Blood Culture - Preliminary NO GROWTH IN 1 DAY Resulted 01/13/18 11:30 Blood Peripheral Anaerobic Blood Culture - Preliminary NO GROWTH IN 1 DAY Resulted Imaging Chest X-Ray 01/14/18 0000 Signed Impressions: Service Date/Time: Sunday, January 14, 2018 03:56 - CONCLUSION: Unchanged diffuse pulmonary infiltrates with small effusions. Deangelo Wren Jr., MD Chest X-Ray 01/08/18 0000 Signed Impressions: Service Date/Time: December 03:37 - CONCLUSION: No significant change. Right pleural effusion with bilateral airspace disease right greater than left. Jose R Casanova MD Chest X-Ray 12/21/17 0600 Signed Impressions: Service Date/Time: Thursday, December 21, 2017 05:51 - CONCLUSION: Some improvement in the infiltrates bilaterally. Deangelo Wren Jr., MD Upper Extremity Ultrasound 11/04/17 0000 Signed Impressions: Service Date/Time: Saturday, November 04, 2017 09:57 - CONCLUSION: No thrombus observed. Subcutaneous edema noted. Deangelo Wren Jr., MD Abdomen X-Ray 11/04/17 0000 Signed Impressions: Service Date/Time: Saturday, November 04, 2017 11:58 - CONCLUSION: Gaseous distention of bowel loops could be ileus but unchanged. Benja Ramsey MD CT Angiography 11/01/17 0000 Signed Impressions: Service Date/Time: Wednesday, November 01, 2017 16:47 - CONCLUSION: No evidence for pulmonary embolism. Please see above. Choco Mustafa MD Thoracentesis 08/05/17 1535 Signed Impressions: Service Date/Time: Saturday, August 05, 2017 16:08 - CONCLUSION: Uncomplicated CT-guided thoracentesis. Sage Adler MD Chest Ultrasound 08/02/17 0000 Signed Impressions: Service Date/Time: Tuesday, August 01, 2017 22:06 - CONCLUSION: 1. Moderate right pleural effusion, as above. Alejo De La Vega MD Hip and Pelvis X-Ray 07/09/17 0000 Signed Impressions: Service Date/Time: Sunday, July 09, 2017 14:04 - CONCLUSION: Anatomic alignment. Ricardo Middleton MD FACR Liver Ultrasound 06/19/17 0000 Signed Impressions: Service Date/Time: June 13:20 - CONCLUSION: 1. Mildly increased echotexture of the liver characteristic of hepatic steatosis. 2. Gallbladder sludge. Obdulio Sam MD Head CT 05/15/17 0000 Signed Impressions: Service Date/Time: May 19:59 - CONCLUSION: 1. 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 2. No bleed or new/acute infarct. Obdulio Simms MD Gall Bladder Ultrasound 05/08/17 0000 Signed Impressions: Service Date/Time: May 08:23 - CONCLUSION: Focally unremarkable appearance of the gallbladder Obdulio Chun MD Abdomen/Pelvis CT 05/07/17 0000 Signed Impressions: Service Date/Time: Sunday, May 07, 2017 13:23 - CONCLUSION: 1. Large left pneumothorax. 2. Bilateral lower lobe consolidation and bilateral moderate size pleural effusions. 3. Significant soft tissue thickening of the right lateral chest wall and left gluteus muscle. 4. Mild ascites. The findings were called to Dr. Carney. Deangelo Zamora MD Chest CT 04/30/17 0000 Signed Impressions: Service Date/Time: Sunday, April 30, 2017 09:20 - CONCLUSION: 1. Bilateral pulmonary infiltrates more pronounced within the lower lobes with tiny bilateral pleural effusions. Material seen filling the lower lobe bronchi bilaterally either related to purulent material or perhaps mucus plugging. Deangelo Wren Jr., MD Carotid Artery Ultrasound 04/24/17 0000 Signed Impressions: Service Date/Time: April 09:45 - CONCLUSION: 1. No hemodynamically significant carotid artery stenosis. Arnie Middleton MD Hip X-Ray 04/21/17 0000 Signed Impressions: Service Date/Time: Friday, April 21, 2017 11:36 - CONCLUSION: Fluoroscopic images during placement of intramedullary siomara left femur. Benja Ramsey MD Physical Exam GENERAL: Sleeping, on the vent, NAD SKIN: Warm and dry. Has varicella rash in L upper chest to back, still fresh pustulovesicular, same HEAD: Atraumatic. Normocephalic. No temporal wasting, or tenderness. EYES: [place] conjunctiva. No petechia or hemorrhage. Pupils equal, round and reactive to light. No scleral icterus. No injection or drainage. EARS, NOSE AND THROAT: Nose without bleeding or purulent nasal discharge. No sinus tenderness. Mucous membranes pink and moist. NECK: Trachea midline. Trach site ok. Supple and not tender, no meningeal signs CARDIOVASCULAR: Regular rate and rhythm. Soft heart sounds. RESPIRATORY: has bilateral rhonchi worse on R than L. Decreased breath sounds at the bases ABDOMEN: More distended, some grimacing during palpation. Bowel sounds present and normoactive. PEG site ok EXTREMITIES: No clubbing, cyanosis, or edema. Well perfused and warm. NEUROLOGICAL: Eyes closed PSYCHIATRIC: Unable to assess LINE: No evidence of infection Assessment & Plan Remarks IMPRESSION Recurrent PNA, mucus plugging New sepsis due to new PNA MDR PSAE and sensitive Serratia Zoster Fevers, higher again - ?due to PNA or zoster - ? 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
[2018-01-14] MEDS: INSULIN DETEMIR 100 UNITS/ML VIAL SQ SCH (12:51)
[2018-01-14] MEDS: FLUCONAZOLE 100 MG TAB PO SCH (12:54)
[2018-01-14 14:18] LABS: AUTOMATED NEUTROPHIL # 14.5 TH/MM3 (1.8-7.7); BASOPHIL # 0.1 TH/MM3 (0-0.2); BASOPHIL % 0.8 % (0.0-2.0); EOSINOPHIL # 0.6 TH/MM3 (0-0.4); HEMATOCRIT 25.6 % (35.0-46.0); HEMOGLOBIN 8.4 GM/DL (11.6-15.3); LYMPH % 12.8 % (9.0-44.0); LYMPHOCYTE # 2.4 TH/MM3 (1.0-4.8); MEAN CELL VOLUME 93.1 FL (80.0-100.0); MEAN CORPUSCULAR HEMOGLOBIN 30.6 PG (27.0-34.0); MEAN CORPUSCULAR HGB CONC 32.9 % (32.0-36.0); MEAN PLATELET VOLUME 9.5 FL (7.0-11.0); MONO % 6.6 % (0.0-8.0); MONOCYTE # 1.2 TH/MM3 (0-0.9); NEUT % 76.8 % (16.0-70.0); PLATELET COUNT 359 TH/MM3 (150-450); RED BLOOD COUNT 2.75 MIL/MM3 (4.00-5.30); RED CELL DISTRIBUTION WIDTH 16.1 % (11.6-17.2); WHITE BLOOD COUNT 18.9 TH/MM3 (4.0-11.0)
[2018-01-14 14:45] LABS: BANDS 10 % (0-6); LYMPHOCYTES 9 % (9-44); METAMYELOCYTES 2 % (0-1); MONOCYTES 3 % (0-8); MYELOCYTES 4 % (0-0); NEUTROPHIL # MANUAL DIFF 15.5 TH/MM3 (1.8-7.7); POLYS (SEG NEUTROPHILS) 66 % (16-70)
[2018-01-14 15:19] LABS: BACTERIA, URINE FEW /hpf; BILIRUBIN, URINE NEG (NEG); BLOOD, URINE SMALL (NEG); GLUCOSE,URINE NEG (NEG); KETONE, URINE 10 mg/dL (NEG); NITRITE,URINE NEG (NEG); SQUAMOUS EPITHELIAL CELL URINE 18 /hpf (0-5); URINE COLOR DARK-YELLOW (YELLW/STRAW); URINE LEUKOCYTE ESTERASE LARGE (NEG); WHITE BLOOD CELL CLUMPS FEW
--- NOTE | 2018-01-14 16:23 | RADRPT ---
EXAM DATE/TIME: 01/14/2018 15:26 [place] COMPARISON: ABDOMEN KUB ONLY, November 04, 2017, 11:58. INDICATIONS : Distention. MEDICAL HISTORY : Hypertension. Diabetes mellitus type II. SURGICAL HISTORY : tracheostomy. ENCOUNTER: Initial ACUITY: 7 - 11 months PAIN SCORE: Non-responsive. LOCATION: Bilateral abdomen FINDINGS: Supine view of the abdomen was performed. Some air distention of the small bowel loops, stomach with a small amount of air in the colon. There appears to be a gastrostomy tube projecting over the stomac h shadow. Popcorn-type calcification in the midpelvis characteristic of a degenerated fibroid. Left h ip medullary siomara and compression screw. CONCLUSION: 1. Air distention of the gastric lumen and small bowel loops with some air identified in the colon. P ossible hypodynamic ileus. 2. Degenerative fibroid Ananda Oneill MD on January 14, 2018 at 16:16 Board Certified Radiologist. This report was verified electronically.
[2018-01-14] MEDS: SODIUM CHLOR 0.9% 1000 ML INJ 1,000 ML IV SCH (19:31)
--- NOTE | 2018-01-14 20:34 | HHI.PR ---
Subjective Remarks No events overnight. . Tolerating tube feeds. Tolerates TF to goal rate No fever Moderate amount of thick mucous BAL positive for AFB PCR Neg for MTB on AC 16, Fi02 55% Decreased Urine out put Started IVF Objective Vital Signs Vital Signs Date Time Temp Pulse Resp B/P (MAP) Pulse Ox O2 Delivery O2 Flow Rate FiO2 01/14/18 17:18 98.0 36 14 109/54 (72) 95 01/14/18 17:18 30 01/14/18 17:17 55 01/14/18 16:24 97 55 01/14/18 14:08 96 55 01/14/18 12:33 98.2 37 12 114/62 (79) 97 01/14/18 12:00 55 01/14/18 11:47 93 55 01/14/18 09:25 38 01/14/18 09:17 55 01/14/18 09:14 92 Mechanical Ventilator 01/14/18 08:33 95 55 01/14/18 08:00 98.4 38 14 121/78 (92) 98 01/14/18 04:23 94 55 01/14/18 04:00 97.6 38 16 113/58 (76) 93 01/14/18 04:00 55 01/14/18 00:00 39 01/14/18 00:00 98.2 49 16 111/50 (70) 96 01/14/18 00:00 55 01/13/18 23:58 94 55 I/O 01/13/18 01/13/18 01/13/18 01/14/18 01/14/18 01/14/18 07:00 15:00 23:00 07:00 15:00 23:00 Intake Total 1358 ml 1140 ml 1190 ml 995 ml Output Total 200 ml 600 ml 0 ml Balance 1158 ml 540 ml 1190 ml 995 ml IV Total 195 ml 190 ml Tube Feeding 663 ml 540 ml 500 ml 495 ml Other 500 ml 600 ml 500 ml 500 ml Output Urine Total 200 ml 600 ml 0 ml # Voids 3 3 0 # Bowel Movements 1 0 0 Result Diagram: 01/14/18 1340 01/14/18 0915 Objective Remarks GENERAL: Elderly female,NAD SKIN: Warm and dry. HEAD: Normocephalic. EYES: No scleral icterus. No injection or drainage. NECK: Supple, trachea midline. No JVD or lymphadenopathy. + trach CARDIOVASCULAR: Regular rate and rhythm without murmurs, gallops, or rubs. RESPIRATORY: Breath sounds equal bilaterally. No accessory muscle use. GASTROINTESTINAL: Abdomen soft, non-tender, nondistended. MUSCULOSKELETAL: No cyanosis, or edema. BACK: Nontender without obvious deformity. No CVA tenderness. 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 Chris Rizo MD January 14, 2018 20:34
[2018-01-15] VITALS (18 sets, daily range): BP systolic 111–148; BP diastolic 48–78; PULSE 38–50; RESP 16–25; TEMP 97.2–99.4; O2SAT 93–100
[2018-01-15] MEDS: INSULIN NovoLIN REGULAR SUPPLEMENTAL SCALE SQ SCH ×4 (00:30→18:30)
[2018-01-15] MEDS: CEFEPIME INJ 2,000 MG in SODIUM CHLORIDE 0.9% INJ 100 ML IV SCH ×3 (04:26→21:28)
[2018-01-15] MEDS: valACYclovir HCL 500 MG TAB PEG SCH ×3 (05:26→21:25)
[2018-01-15] MEDS: hydrALAZINE HCL 10 MG TAB PEG SCH ×3 (05:26→21:25)
[2018-01-15] MEDS: FREE WATER PEG SCH ×3 (05:26→12:00)
[2018-01-15] MEDS: CHOLESTYRAMINE LIGHT 4 GM PACKAGE PEG SCH ×2 (07:45→20:03)
[2018-01-15] MEDS: CHOLECALCIFEROL (VIT D3) 5000 UNIT CAP PEG SCH (07:45)
[2018-01-15] MEDS: CALCIUM POLYCARBOPHIL 625 MG TAB PEG SCH ×2 (07:45→20:03)
[2018-01-15] MEDS: FUROSEMIDE 40 MG/4 ML VIAL IV PUSH SCH ×2 (07:45→18:00)
[2018-01-15] MEDS: LACTOBACILLUS ACIDOPHILUS TAB PEG SCH ×3 (07:45→18:00)
[2018-01-15] MEDS: CALCIUM/VITAMIN D 250 MG/125 U TAB PEG SCH ×3 (07:46→18:00)
[2018-01-15] MEDS: LISINOPRIL 5 MG TAB PEG SCH (07:46)
[2018-01-15] MEDS: LANSOPRAZOLE SOLUTAB 30 MG TAB NG SCH (07:46)
[2018-01-15] MEDS: RESP: COLISTIN 150 MG VIAL NEB SCH ×2 (08:00→19:25)
[2018-01-15] MEDS: RESP: ALBUTEROL 2.5 MG/3 ML NEB (PRN) NEB ×2 (08:15→19:20)
[2018-01-15] MEDS: INSULIN DETEMIR 100 UNITS/ML VIAL SQ SCH ×2 (12:00)
[2018-01-15] MEDS: FLUCONAZOLE 100 MG TAB PO SCH (12:46)
[2018-01-15] MEDS: SODIUM CHLOR 0.9% 1000 ML INJ 1,000 ML IV SCH (12:47)
--- NOTE | 2018-01-15 13:58 | HHI.PR ---
Subjective Remarks Nursing staff states patient is not tolerating tube feed with 50 year residual. In addition patient has had decreased urine output overnight. Moser catheter inserted back. Urinalysis currently pending. Objective Vitals Vital Signs Date Time Temp Pulse Resp B/P (MAP) Pulse Ox O2 Delivery O2 Flow Rate FiO2 01/15/18 11:43 96 55 01/15/18 08:18 98 55 01/15/18 04:00 97.6 44 16 117/58 (77) 97 01/15/18 04:00 55 01/15/18 00:21 96 55 01/15/18 00:00 55 01/15/18 00:00 97.2 38 20 114/55 (74) 97 01/15/18 00:00 38 01/14/18 20:37 99 55 01/14/18 20:00 97 Mechanical Ventilator 55 01/14/18 20:00 96.9 38 22 129/62 (84) 97 01/14/18 20:00 55 01/14/18 20:00 38 01/14/18 17:18 98.0 36 14 109/54 (72) 95 01/14/18 17:18 30 01/14/18 17:17 55 01/14/18 16:24 97 55 01/14/18 14:08 96 55 I/O 01/14/18 01/14/18 01/14/18 01/15/18 01/15/18 01/15/18 07:00 15:00 23:00 07:00 15:00 23:00 Intake Total 1190 ml 1095 ml 400 ml Output Total 0 ml 100 ml Balance 1190 ml 1095 ml 300 ml IV Total 190 ml 100 ml 100 ml Tube Feeding 500 ml 495 ml 0 ml Other 500 ml 500 ml 300 ml Output Urine Total 0 ml 100 ml # Voids 3 0 # Bowel Movements 0 0 1 Result Diagram: 01/14/18 1340 01/14/18 0915 Other Results Microbiology Date/Time Source Procedure Growth Status 01/13/18 11:37 Blood Peripheral Aerobic Blood Culture - Preliminary NO GROWTH IN 2 DAYS Resulted 01/13/18 11:37 Blood Peripheral Anaerobic Blood Culture - Preliminary NO GROWTH IN 2 DAYS Resulted 08/05/17 14:25 Fluid Pleural Fluid Gram Stain - Final Complete 08/05/17 14:25 Fluid Pleural Fluid Body Fluid Culture - Final NO GROWTH IN 72 HRS.--AEROBICALLY OR ... Complete 12/23/17 17:00 Stool Stool Cryptosporidium Exam - Final NEGATIVE - NO CRYPTOSPORIDIUM ANTIGEN... Complete 12/23/17 17:00 Stool Stool Stool Pus (JEFFREY) - Final NO WBC'S SEEN Complete 12/23/17 17:00 Stool Stool Giardia Antigen (JEFFREY) - Final NEGATIVE - NO GIARDIA ANTIGEN DETECTE... Complete 01/07/18 09:45 Sputum Endotracheal Gram Stain - Final Complete 01/07/18 09:45 Sputum Culture - Final Pseudomonas Aeruginosa Multi-Drug Resistant Serratia Marcescens Complete 01/14/18 14:30 Urine Catheterized Urine Urine Culture - Preliminary Yeast Species Gram Positive Cocci Resulted Objective Remarks GENERAL: This is a well-nourished, well-developed patient, in no apparent distress. Trach in place CARDIOVASCULAR: Regular rate and rhythm without murmurs, gallops, or rubs. RESPIRATORY: bilaterally coarse breath sounds. GASTROINTESTINAL: Abdomen soft, non-tender, nondistended. Normal active bowel sounds SKIN: Vesicles from the lower left breast upper abdomen area radiating towards the left axilla and back trunk Procedures PEG tube trach 05/15/17 and PEG 05/16/17 A/P Problem List: (1) Acute ischemic left middle cerebral artery (MCA) stroke ICD Code: I63.512 - Cerebral infarction due to unspecified occlusion or stenosis of left middle cerebral artery Status: Acute (2) Acute respiratory failure ICD Code: J96.00 - Acute respiratory failure, unspecified whether with hypoxia or hypercapnia Status: Resolved (3) Right hemiplegia ICD Code: G81.91 - Hemiplegia, unspecified affecting right dominant side Status: Acute (4) Sacral decubitus ulcer ICD Code: L89.159 - Pressure ulcer of sacral region, unspecified stage Status: Chronic (5) HCAP (healthcare-associated pneumonia) ICD Code: J18.9 - Pneumonia, unspecified organism Status: Acute (6) 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 She underwent ORIF on 04/21/17 and on 04/24 a stroke alert was called as she was found to have right hemiparesis with left gaze. She has a poor prognosis based on her lack of overall recovery over the last 6+ months. 01/07 Sepsis with Recurrent Hospital Acquired/Ventilator Associated Pneumonia: patient with previous +fever Tmax 101.0, leukocytosis WBC Trended down and improved after antibiotics started, CXR 01/04/18 showed stable CXR with moderate size right pleural effusion with associated volume loss or airspace consolidation; likely small left pleural effusion; bilateral interstitial opacities; repeat chest x-ray today showed stable unchanged. Patient continued to spike fevers, Reconsulted infectious disease as bronchial washing culture 01/02 positive for multi drug resistant pseudomonas Initially started on IV Zerbaxa, and change IV Cefepime per ID Blood cultures collected and pending Repeat sputum culture 01/07with Pseudomonas MDRO and Serratia; blood cultures with no growth New acute shingles, herpes zoster-contact isolation and continue Valtrex. Chronic Tracheostomy /respiratory failure Pulmonary toilet, trach care Duo nebs q6h Pulmonary following, appreciate assistance S/p bronchoscopy 01/02 with removal of mucous plugs and bronchial washings done Bronchial washings culture from 01/02 with multi drug resistant, pseudomonas, serratia Urinary retention- transient No leukocytosis U/A with large leuk esterase but many squamous cells Culture with mixed Gram positive dmitry and yeast Completed Augmentin 11/07-11/14 Moser reinserted Previous level elevated D-dimer Ordered on 10/31 for increasing FiO2 demand Since D-dimer elevated, CTA chest obtained to r/o PE which was negative Likely elevated in light of chronic illness RUE U/S negative for DVT - elevate R arm Left MCA stroke 5.5 mm of [id number] subfalcine herniation, diagnosed 04/24. Was not a candidate for thrombolysis at that time. Increasing edema seen on repeat CT 04/28 with a reduction in midline shift on another repeat on 04/30 Neurologic condition remained poor and she underwent trach 05/15/17 and PEG Persistent right-sided hemiparesis. Previously seen by neurology, signed off Previously seen by neurosurgery, signed off Continue daily ASA Hypertension / CHF Amlodipine 10 mg po daily, Doxazosin 1 mg peg daily, hydralazine 10 mg per per peg q8 hours. Clonidine 0.1 mg q6h prn Echo 10/06/17 LVSF EF = 25-30%. Large left pneumothorax Resolved Chest tube placed 05/07, discontinued 05/12/17 Hepatitis C LFTs normalized Negative genotype/viral load Diabetes mellitus -overall adequately controlled. SSI Novolin R High-dose scale Levemir insulin 8u Q12 FEN PEG tube feeding with Glucerna 1.5 goal 45 cc/hr, per nutrition recommendations, no tolerating currently, add reglan increase free h2o Decrease urine output - due to TF on hold, free water bolus, await final urine cultre to r/o new infection. continue moser. Loose Stools - improved patient has been checked for Cdiff on multiple occasions, most recently 12/21 C diff negative continue on lactinex bid, questran bid and monitor for improvement improving DVT prophylaxis Heparin Discharge Planning Difficult placement Problem Qualifiers (1) Acute respiratory failure: Qualified Codes: J96.00 - Acute respiratory failure, unspecified whether with hypoxia or hypercapnia (2) Sacral decubitus ulcer: Qualified Codes: L89.152 - Pressure ulcer of sacral region, stage 2 (3) Chronic respiratory failure: Qualified Codes: J96.11 - Chronic respiratory failure with hypoxia (4) Shingles: Qualified Codes: B02.8 - Zoster with other complications Kassie Lopez MD January 15, 2018 13:58
[2018-01-15] MEDS ORDERED: FREE WATER G-TUBE ONE (15:00)
[2018-01-15] MEDS: FREE WATER G-TUBE SCH (18:00)
[2018-01-15] MEDS: METOCLOPRAMIDE HCL SYRUP 10 MG/10 ML UDC G-TUBE SCH (18:00)
--- NOTE | 2018-01-15 19:02 | HHI.PR ---
Subjective Remarks No events overnight. . Tolerating tube feeds. Tolerates TF to goal rate No fever Moderate amount of thick mucous BAL positive for AFB PCR Neg for MTB on AC 16, Fi02 55% Had vomiting TF on hold Getting IVF Objective Vital Signs Vital Signs Date Time Temp Pulse Resp B/P (MAP) Pulse Ox O2 Delivery O2 Flow Rate FiO2 01/15/18 14:10 94 55 01/15/18 12:00 99.0 38 21 135/56 (82) 100 01/15/18 11:43 96 55 01/15/18 08:18 98 55 01/15/18 08:00 T-Piece 28 01/15/18 08:00 99.4 48 21 128/78 (95) 98 01/15/18 08:00 45 01/15/18 04:00 97.6 44 16 117/58 (77) 97 01/15/18 04:00 55 01/15/18 00:21 96 55 01/15/18 00:00 55 01/15/18 00:00 97.2 38 20 114/55 (74) 97 01/15/18 00:00 38 01/14/18 20:37 99 55 01/14/18 20:00 97 Mechanical Ventilator 55 01/14/18 20:00 96.9 38 22 129/62 (84) 97 01/14/18 20:00 55 01/14/18 20:00 38 I/O 01/14/18 01/14/18 01/14/18 01/15/18 01/15/18 01/15/18 07:00 15:00 23:00 07:00 15:00 23:00 Intake Total 1190 ml 1095 ml 400 ml Output Total 0 ml 100 ml Balance 1190 ml 1095 ml 300 ml IV Total 190 ml 100 ml 100 ml Tube Feeding 500 ml 495 ml 0 ml Other 500 ml 500 ml 300 ml Output Urine Total 0 ml 100 ml # Voids 3 0 # Bowel Movements 0 0 1 Result Diagram: 01/14/18 1340 01/14/18 0915 Objective Remarks GENERAL: Elderly female,NAD SKIN: Warm and dry. HEAD: Normocephalic. EYES: No scleral icterus. No injection or drainage. NECK: Supple, trachea midline. No JVD or lymphadenopathy. + trach CARDIOVASCULAR: Regular rate and rhythm without murmurs, gallops, or rubs. RESPIRATORY: Breath sounds equal bilaterally. No accessory muscle use. GASTROINTESTINAL: Abdomen soft, non-tender, nondistended. MUSCULOSKELETAL: No cyanosis, or edema. BACK: Nontender without obvious deformity. No CVA tenderness. A/P Assessment and Plan Chronic resp failure, ,S/P Trach CVA Pneumonia Calcified Granuloma LLL Pseudomonas Tracheobronchitis, AFB Positive in BAL, PCR negative for MTB PLAN: Vent support with AC 16, Fi02 55% Bronchodilators, IVF GI/DVT prophylaxis Mucomyst Nebs IV Zosyn Colistin Nebs DW RN Monitor renal functions. Chris Rizo MD January 15, 2018 19:02
[2018-01-15] MEDS: ONDANSETRON HCL 4 MG/2 ML VIAL IV PUSH PRN (20:03)
[2018-01-15] MEDS: oxyCODONE HCL ORAL CONC 5 MG/0.25 ML SYRINGE PEG PRN (20:03)
[2018-01-16] VITALS (22 sets, daily range): BP systolic 93–160; BP diastolic 50–80; PULSE 34–89; RESP 16–28; TEMP 97.8–100.2; O2SAT 92–100
[2018-01-16] MEDS: INSULIN DETEMIR 100 UNITS/ML VIAL SQ SCH ×2 (00:28→12:00)
[2018-01-16] MEDS: INSULIN NovoLIN REGULAR SUPPLEMENTAL SCALE SQ SCH ×4 (00:28→18:30)
[2018-01-16] MEDS: CEFEPIME INJ 2,000 MG in SODIUM CHLORIDE 0.9% INJ 100 ML IV SCH ×2 (04:05→14:00)
[2018-01-16] MEDS: SODIUM CHLOR 0.9% 1000 ML INJ 1,000 ML IV SCH (04:20)
[2018-01-16] MEDS: hydrALAZINE HCL 10 MG TAB PEG SCH ×3 (05:31→22:03)
[2018-01-16] MEDS: FREE WATER G-TUBE SCH ×4 (05:31→17:07)
[2018-01-16] MEDS: valACYclovir HCL 500 MG TAB PEG SCH ×2 (05:32→15:08)
[2018-01-16] MEDS: RESP: COLISTIN 150 MG VIAL NEB SCH ×2 (07:59→19:22)
--- NOTE | 2018-01-16 08:18 | RADRPT ---
EXAM DATE/TIME: 01/16/2018 07:52 [facility] COMPARISON: CHEST SINGLE AP, January 14, 2018, 3:56. INDICATIONS : Short of breath, weight gain, evaluate congestive heart failure MEDICAL HISTORY : Hypertension. Diabetes mellitus type II. SURGICAL HISTORY : tracheostomy ENCOUNTER: Subsequent ACUITY: 2 months PAIN SCORE: Non-responsive. LOCATION: Bilateral chest FINDINGS: A single view of the chest demonstrates diffuse bilateral airspace disease with associated effusions, right greater than left. No significant interval change. Heart size is difficult to determine due to the adjacent pulmonary opacities but appears enlarged. Atherosclerotic calcification of the aortic a rch. Tracheostomy tube is unchanged in position. Degenerative spurring of the dorsal spine. Right carlos ulder is "high riding" characteristic of a chronic rotator cuff injury. CONCLUSION: 1. Diffuse bilateral pulmonary infiltrates and bilateral pleural effusions, unchanged. Findings could represent congestive heart failure is suggested in the clinical history. 2. Stable position of tracheostomy tube. Plain film findings characteristic of a chronic right-sided rotator cuff injury. Ananda Oneill MD on January 16, 2018 at 8:13 Board Certified Radiologist. This report was verified electronically.
[2018-01-16 08:35] LABS: AUTOMATED NEUTROPHIL # 16.1 TH/MM3 (1.8-7.7); BASOPHIL # 0.2 TH/MM3 (0-0.2); EOSINOPHIL # 0.2 TH/MM3 (0-0.4); EOSINOPHIL % 1.3 % (0.0-4.0); HEMATOCRIT 23.6 % (35.0-46.0); HEMOGLOBIN 7.8 GM/DL (11.6-15.3); LYMPHOCYTE # 1.3 TH/MM3 (1.0-4.8); MEAN CELL VOLUME 93.8 FL (80.0-100.0); MEAN CORPUSCULAR HGB CONC 33.1 % (32.0-36.0); MEAN PLATELET VOLUME 9.4 FL (7.0-11.0); MONO % 5.1 % (0.0-8.0); NEUT % 85.6 % (16.0-70.0); PLATELET COUNT 429 TH/MM3 (150-450); RED BLOOD COUNT 2.52 MIL/MM3 (4.00-5.30); RED CELL DISTRIBUTION WIDTH 16.1 % (11.6-17.2); WHITE BLOOD COUNT 18.8 TH/MM3 (4.0-11.0)
[2018-01-16 08:50] LABS: ALT (GPT) 31 U/L (10-53); AST (GOT) 26 U/L (15-37); BICARBONATE 16.9 MEQ/L (21.0-32.0); CALCIUM 8.7 MG/DL (8.5-10.1); CHLORIDE 101 MEQ/L (98-107); CREATININE 1.67 MG/DL (0.50-1.00); GLOMERULAR FILTRATION RATE 30 ML/MIN (>89); GLUCOSE,RANDOM 95 MG/DL (74-106); SODIUM (NA) 130 MEQ/L (136-145)
[2018-01-16 08:52] LABS: ALKALINE PHOSPHATASE 389 U/L (45-117); TOTAL BILIRUBIN ADULT 0.3 MG/DL (0.2-1.0); TOTAL PROTEIN 7.1 GM/DL (6.4-8.2)
[2018-01-16] MEDS: METOCLOPRAMIDE HCL SYRUP 10 MG/10 ML UDC G-TUBE SCH ×3 (09:00→17:06)
[2018-01-16] MEDS: CHOLESTYRAMINE LIGHT 4 GM PACKAGE PEG SCH ×2 (09:00→22:03)
[2018-01-16 09:04] LABS: BANDS 5 % (0-6); LYMPHOCYTES 8 % (9-44); METAMYELOCYTES 3 % (0-1); MONOCYTES 3 % (0-8); MYELOCYTES 2 % (0-0); NEUTROPHIL # MANUAL DIFF 16.7 TH/MM3 (1.8-7.7); POLYS (SEG NEUTROPHILS) 79 % (16-70)
--- NOTE | 2018-01-16 09:04 | HHI.PR ---
Subjective Remarks As per RN patient very edematous - has gained 18 paunds WBC trending up Creatinine trending up Patient on mechanical ventilation Objective Vitals Vital Signs Date Time Temp Pulse Resp B/P (MAP) Pulse Ox O2 Delivery O2 Flow Rate FiO2 01/16/18 08:00 98 50 01/16/18 06:30 99 Mechanical Ventilator 50 01/16/18 04:30 99 50 01/16/18 04:04 98.6 40 19 127/57 (80) 96 01/16/18 04:00 55 01/16/18 01:00 43 18 110/56 (74) 95 01/16/18 01:00 43 01/16/18 01:00 98 55 01/16/18 00:20 97.8 51 19 114/59 (77) 95 01/16/18 00:00 55 01/16/18 00:00 35 01/15/18 23:00 50 01/15/18 23:00 50 18 111/51 (71) 97 01/15/18 22:00 42 18 113/48 (69) 93 01/15/18 22:00 42 01/15/18 21:47 48 18 115/59 (77) 98 01/15/18 21:00 49 01/15/18 21:00 20 01/15/18 20:00 55 01/15/18 20:00 97 Mechanical Ventilator 55 01/15/18 20:00 49 01/15/18 19:21 98.8 50 25 148/66 (93) 99 01/15/18 19:12 96 55 01/15/18 19:00 49 01/15/18 16:00 45 01/15/18 15:00 40 01/15/18 14:10 94 55 01/15/18 12:00 45 01/15/18 12:00 99.0 38 21 135/56 (82) 100 01/15/18 11:43 96 55 I/O 01/15/18 01/15/18 01/15/18 01/16/18 01/16/18 01/16/18 07:00 15:00 23:00 07:00 15:00 23:00 Intake Total 400 ml 120 ml 540 ml Output Total 100 ml 400 ml 550 ml Balance 300 ml -280 ml -10 ml Intake Oral 0 ml IV Total 100 ml Tube Feeding 0 ml 0 ml 40 ml Other 300 ml 120 ml 500 ml Output Urine Total 100 ml 400 ml 550 ml # Bowel Movements 1 2 0 Result Diagram: 01/16/18 0824 01/14/18 0915 Imaging Last 72 hours Impressions Renal Ultrasound 01/16/18 0000 Signed Impressions: Service Date/Time: Tuesday, January 16, 2018 12:01 - CONCLUSION: 1. Mild left- sided hydronephrosis. 2. Right kidney appears unremarkable 3. Nonvisualization of the bladder. Benja Ramsey MD Chest X-Ray 01/16/18 0000 Signed Impressions: Service Date/Time: Tuesday, January 16, 2018 07:52 - CONCLUSION: 1. Diffuse bilateral pulmonary infiltrates and bilateral pleural effusions, unchanged. Findings could represent congestive heart failure is suggested in the clinical history. 2. Stable position of tracheostomy tube. Plain film findings characteristic of a chronic right-sided rotator cuff injury. Ananda Oneill MD Chest X-Ray 01/14/18 0000 Signed Impressions: Service Date/Time: Sunday, January 14, 2018 03:56 - CONCLUSION: Unchanged diffuse pulmonary infiltrates with small effusions. Deangelo Wren Jr., MD Abdomen X-Ray 01/14/18 0000 Signed Impressions: Service Date/Time: Sunday, January 14, 2018 15:26 - CONCLUSION: 1. Air distention of the gastric lumen and small bowel loops with some air identified in the colon. Possible hypodynamic ileus. 2. Degenerative fibroid Ananda Oneill MD Objective Remarks GENERAL:Lethargic, responds to physical stimuli grimacing SKIN: Warm and dry. HEAD: Normocephalic. EYES: No scleral icterus. No injection or drainage. NECK: Supple, trachea midline. No JVD or lymphadenopathy. T piece in place, no redness over trach insertion site. CARDIOVASCULAR: Regular rate and rhythm without murmurs, gallops, or rubs. RESPIRATORY: Decreased breath sounds at the bases. GASTROINTESTINAL: Abdomen soft, non-tender, nondistended. MUSCULOSKELETAL: No cyanosis, or edema. BACK: Nontender without obvious deformity. No CVA tenderness. Neuro: Awake and alert, does not follow commands. Nonverbal. Procedures PEG tube trach 05/15/17 and PEG 05/16/17 A/P Problem List: (1) Acute ischemic left middle cerebral artery (MCA) stroke ICD Code: I63.512 - Cerebral infarction due to unspecified occlusion or stenosis of left middle cerebral artery Status: Acute (2) Acute respiratory failure ICD Code: J96.00 - Acute respiratory failure, unspecified whether with hypoxia or hypercapnia Status: Resolved (3) Right hemiplegia ICD Code: G81.91 - Hemiplegia, unspecified affecting right dominant side Status: Acute (4) Sacral decubitus ulcer ICD Code: L89.159 - Pressure ulcer of sacral region, unspecified stage Status: Chronic (5) HCAP (healthcare-associated pneumonia) ICD Code: J18.9 - Pneumonia, unspecified organism Status: Resolved (6) 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 She underwent ORIF on 04/21/17 and on 04/24 a stroke alert was called as she was found to have right hemiparesis with left gaze. She has a poor prognosis based on her lack of overall recovery over the last 6+ months. Patient has no acute issues, no change in care plan. Pulmonary edema -resolved chest x-ray done 11/13/2017, evidence of pulmonary edema, continue Lasix, monitor BMP every few weeks. 12/03 Chest x-ray on shows bilateral hazy airspace disease overall improved from November 13. Cardiomegaly. Increased furosemide 40 mg p.o. daily. Left MCA stroke 5.5 mm of [id number] subfalcine herniation, diagnosed 04/24. Was not a candidate for thrombolysis at that time. Increasing edema seen on repeat CT 04/28 with a reduction in midline shift on another repeat on 04/30 Neurologic condition remained poor and she underwent trach 05/15/17 and PEG Persistent right-sided hemiparesis. Previously seen by neurology, signed off Previously seen by neurosurgery, signed off Continue daily ASA Patient has been attempting to pull tracheostomy out yesterday Hypertension / CHF Order chest x-ray on 01/16/18 secondary to worsening leukocytosis. Chest x- ray reviewed by me shows diffuse bilateral pulmonary infiltrates and bilateral pleural effusions. Stable position of tracheostomy tube. Echo obtained on October 06, 2012 showed a left ventricular systolic function severely reduced with an estimated EF in the range of 25-30%. Grade 1 diastolic dysfunction. Diffuse global hypokinesis with distinct regional wall motion abnormalities. Likely acute on chronic systolic and diastolic heart failure. Continue Lasix 40 mg IV twice daily. Will start the patient on IV albumin to try to increase intravascular volume and decrease third spacing. Chronic Tracheostomy /respiratory failure 10/22/2017 Pulmonary toilet, trach care Duo nebs as needed Pulm following, appreciate assistance. Currently on mechical ventilation - assist control with an fio2 of 50% Large left pneumothorax Resolved Chest tube placed 05/07, discontinued 05/12/17 Hepatitis C LFTs normalized Negative genotype/viral load Diabetes mellitus SSI Novolin R High-dose scale Levemir insulin 8u Q12 FEN PEG tube feeding with Glucerna 1.5 goal 45 cc/hr, per nutrition recommendations Loose Stools patient has been checked for Cdiff on multiple occasions, most recently 11/04 Cdiff negative already on lactinex bid Continue Questran, start Lomotil. Anal Fissure continue wound care Bradycardia Upon review of records the patient was recently evaluated by radiology due to bradycardia on 11/19/17. At the time cardiology recommended observation and avoidance of AV du blocking agents. Patient currently on telemetry with an episode of bradycardia in the 30s which was asymptomatic as per RN. EKG obtained on 12/02 shows sinus rhythm with moderate T-wave abnormalities on anterolateral leads. Reviewed by me. Discontinue clonidine as needed as these can have a negative chronotropic effect on the heart and worsen or cause bradycardia. 01/16 hold calcium channel blockers. Bradycardia could be worsened by hyperkalemia. Team to monitor on telemetry. New sepsis due to new PNA MDR PSAE and sensitive Serratia UTI Continue antibiotics as per ID recommendations. The patient is currently on cefepime IV, colistin nebs, Valtrex. Added Diflucan and Zyvox for positive urine culture. Urine culture positive groin Lea glabrata and group D enterococcus. Acute kidney injury Worsening creatinine from 0.83-1.05-1.67. Continue to monitor BUN and creatinine, history I's and O's. Consult nephrology. Hyperkalemia We will treated with IV insulin and 1 amp of D50. Also Rx Kayexalate. Renal consulted. Administer calcium chloride. Check EKG Hyponatremia Likely due to fluid overload. Continue to monitor BMP. Treated with IV diuretics. Ileus Likely functional ileus. Abdomen KUB obtained on 01/14/18. Will repeat KUB Hold tube feedings and free water. DVT prophylaxis Heparin Discharge Planning Very poor prognosis. Appreciate palliative care efforts. Transfer to ICU Problem Qualifiers (1) Acute respiratory failure: Qualified Codes: J96.00 - Acute respiratory failure, unspecified whether with hypoxia or hypercapnia (2) Sacral decubitus ulcer: Qualified Codes: L89.152 - Pressure ulcer of sacral region, stage 2 (3) Chronic respiratory failure: Qualified Codes: J96.11 - Chronic respiratory failure with hypoxia (4) Shingles: Qualified Codes: B02.8 - Zoster with other complications Aleksandar Alford MD January 16, 2018 09:04
[2018-01-16] MEDS ORDERED: DEXTROSE 50% IN WATER 50 ML VIAL(D50) IV PUSH ONE (09:15)
[2018-01-16] MEDS ORDERED: INSULIN HUMAN REGULAR 1,000 UNITS/10 ML VIAL IV PUSH ONE ×2 (09:15→16:00)
[2018-01-16 09:17] LABS: BLOOD UREA NITROGEN 74 MG/DL (7-18)
[2018-01-16] MEDS ORDERED: SODIUM POLYSTYRENE SULFONATE SUSP 15 GM/60 ML CUP PEG ONE (11:00)
[2018-01-16] MEDS ORDERED: CALCIUM CHLORIDE INJ 2 GM in DEXTROSE 5% IN WATER 100ML INJ 100 ML IV ONE ×2 (11:30)
--- NOTE | 2018-01-16 11:44 | HHI.HCPN ---
Reason for visit a. To assist with evaluation and management of symptoms including: Debility and pain. b. To assist medical decision maker(s) with: better understanding of current medical conditions; weighing benefits/burdens of medical treatment options; making medical treatment decisions. . Subjective/Interval History Mrs. Hein is a 77-year-old female with a past medical history of hypertension, diabetes mellitus and CVA who presented to the ED on 04/20/17 via EMS for evaluation of after a fall. Patient underwent Left hip reduction and intramedullary nail fixation on 04/21/17. Clinical course complicated by large left MCA infarct with diffuse edema throughout the left MCA distribution. Medical course further complicated by prolonged hospitalization, tracheostomy status post prolonged ventilation support, MDR Pseudomonas pneumonia -multidrug- resistant , deconditioning. Palliative care follow-up for clarifications of goals of care given worsening clinical condition. Patient presents with worsening clinical condition. She was seen in her room on full ventilator support in no acute distress. Afebrile, stable hemodynamically. Detailed review of clinical course completed. Respiratory status fairly stable on T piece since 09/17/17 until the beginning of December, intermittently requiring ventilator support since 01/12/18 and on full ventilator support since 01/13/18. Chest x-ray today indicating diffuse bilateral pulmonary infiltrates on bilateral pleural effusions, findings could represent congestive heart failure. Patient with reported weight gain of 16 pounds within the past 18 days, she is edematous. Worsening renal function, BUN /creatinine 74/1.67. Patient not tolerating tube feeds, high residuals. Tube feeds currently on hold. Patient with persistent sogyy-qhbl-mssqnrofn infections, leukocytosis trending up. Urine culture 01/14/18 positive for gram- positive cocci and yeast, sputum culture 01/07/18 positive for Pseudomonas, MDR Serratia Marcescens. Infectious disease following. Hemoglobin 7.8 today from 8.4 yesterday. No signs of acute bleeding noted. Patient recently received 2 units of PRBC on 01/01/18 for hemoglobin of 7.3. Patient noted on junctional rhythm, heart rate in the low 40s. Case discussed in great detail with bedside nurse Leah, patient with new onset of shingles to left breast, currently on Valtrex. Case discussed with Dr. Bashir and bedside RN Leah. . Family/friend interactions Lengthy telephone conversation with patient's daughter Trice Salvador. Reviewed in detail patient's multiple complications and clinical setbacks since the beginning of December. Share concerns of patient's current clinical condition to include ventilator dependent respiratory failure, bilateral pulmonary infiltrates/effusions, leukocytosis with multiple active btxrk-uquq-dlmloozrh infections, acute renal failure, clinical presentation of CHF and patient not tolerating peg tube feedings at this time. Reviewed no meaningful neurological recovery in the setting of MCA stroke 9 months ago. Reviewed patient is NOT anticipated to recover, reviewed likely trajectory of illness to include continue progressive decline, additional complications and . Reviewed that given her worsening clinical condition with prolonged hospitalization, patient appears to be approaching end of life in spite of aggressive management. Reviewed hospice philosophy and benefits, discussed that she has the option to transition patient to comfort. Daughter reiterated aggressive goals, asking to speak with attending Dr. Bashir. . Advance Directives Living Will: Never completed Health Care Surrogate: Never completed Durable Power of Child Care Provider: Never completed Advance Directive Specifics Health Care Surrogate(s): No advance directives completed. As per [place] statute, healthcare proxy decision making falls to patient's only daughter Norma Salvador. . Documented care wishes: No living will completed. . Significant change in goals: Goals of therapy remain aggressive. . Objective Vital Signs Date Time Temp Pulse Resp B/P (MAP) Pulse Ox O2 Delivery O2 Flow Rate FiO2 01/16/18 08:00 98 50 01/16/18 06:30 99 Mechanical Ventilator 50 01/16/18 04:30 99 50 01/16/18 04:04 98.6 40 19 127/57 (80) 96 01/16/18 04:00 55 01/16/18 01:00 43 18 110/56 (74) 95 01/16/18 01:00 43 01/16/18 01:00 98 55 01/16/18 00:20 97.8 51 19 114/59 (77) 95 01/16/18 00:00 55 01/16/18 00:00 35 01/15/18 23:00 50 01/15/18 23:00 50 18 111/51 (71) 97 01/15/18 22:00 42 18 113/48 (69) 93 01/15/18 22:00 42 01/15/18 21:47 48 18 115/59 (77) 98 01/15/18 21:00 49 01/15/18 21:00 20 01/15/18 20:00 55 01/15/18 20:00 97 Mechanical Ventilator 55 01/15/18 20:00 49 01/15/18 19:21 98.8 50 25 148/66 (93) 99 01/15/18 19:12 96 55 01/15/18 19:00 49 01/15/18 16:00 45 01/15/18 15:00 40 01/15/18 14:10 94 55 01/15/18 12:00 45 01/15/18 12:00 99.0 38 21 135/56 (82) 100 01/15/18 11:43 96 55 Intake & Output 01/16/18 01/16/18 07:00 19:00 Intake Total 540 ml Output Total 550 ml Balance -10 ml Tube Feeding 40 ml Other 500 ml Output Urine Total 550 ml # Bowel Movements 0 Physical Exam CONSTITUTIONAL/GENERAL: This is an elderly , ill looking female resting in bed in no acute distress. Bilateral temporal wasting noted. TUBES/LINES/DRAINS: PIV's. Tracheostomy, SCD, PEG tube. SKIN: Very pale. No jaundice. Ecchymoses on upper extremities. Skin temperature appropriate. Not diaphoretic. Rash to left breast. NECK: Trachea midline. Supple. Tracheostomy in place, on mechanical ventilation -full support. CARDIOVASCULAR: Junctional rhythm with heart rate in the low 40s. RESPIRATORY/CHEST: Symmetric, tracheostomy. Clear, diminished breath sounds bilaterally. GASTROINTESTINAL: Abdomen soft, round, distended. Bowel sounds hypoactive. PEG tube in place. GENITOURINARY: Without palpable bladder distension. MUSCULOSKELETAL: Extremities without clubbing, cyanosis. Muscle wasting to all 4 extremities. +1-2 pitting edema to bilateral lower extremity, +2 pitting edema to right hand. NEUROLOGICAL: Eyes closed. Not opening to verbal or tactile stimuli. PSYCHIATRIC: Unable to evaluate secondary to clinical condition. . Diagnostic Tests Laboratory Laboratory Tests Test 01/14/18 09:15 01/14/18 13:40 01/14/18 14:30 01/16/18 08:24 White Blood Count 17.4 TH/MM3 (4.0-11.0) 18.9 TH/MM3 (4.0-11.0) 18.8 TH/MM3 (4.0-11.0) Red Blood Count 2.80 MIL/MM3 (4.00-5.30) 2.75 MIL/MM3 (4.00-5.30) 2.52 MIL/MM3 (4.00-5.30) Hemoglobin 8.6 GM/DL (11.6-15.3) 8.4 GM/DL (11.6-15.3) 7.8 GM/DL (11.6-15.3) Hematocrit 26.4 % (35.0-46.0) 25.6 % (35.0-46.0) 23.6 % (35.0-46.0) Mean Corpuscular Volume 94.1 FL (80.0-100.0) 93.1 FL (80.0-100.0) 93.8 FL (80.0-100.0) Mean Corpuscular Hemoglobin 30.7 PG (27.0-34.0) 30.6 PG (27.0-34.0) 31.0 PG (27.0-34.0) Mean Corpuscular Hemoglobin Concent 32.6 % (32.0-36.0) 32.9 % (32.0-36.0) 33.1 % (32.0-36.0) Red Cell Distribution Width 15.9 % (11.6-17.2) 16.1 % (11.6-17.2) 16.1 % (11.6-17.2) Platelet Count 376 TH/MM3 (150-450) 359 TH/MM3 (150-450) 429 TH/MM3 (150-450) Mean Platelet Volume 9.5 FL (7.0-11.0) 9.5 FL (7.0-11.0) 9.4 FL (7.0-11.0) Neutrophils (%) (Auto) 75.7 % (16.0-70.0) 76.8 % (16.0-70.0) 85.6 % (16.0-70.0) Lymphocytes (%) (Auto) 14.3 % (9.0-44.0) 12.8 % (9.0-44.0) 7.0 % (9.0-44.0) Monocytes (%) (Auto) 5.1 % (0.0-8.0) 6.6 % (0.0-8.0) 5.1 % (0.0-8.0) Eosinophils (%) (Auto) 3.7 % (0.0-4.0) 3.0 % (0.0-4.0) 1.3 % (0.0-4.0) Basophils (%) (Auto) 1.2 % (0.0-2.0) 0.8 % (0.0-2.0) 1.0 % (0.0-2.0) Neutrophils # (Auto) 13.1 TH/MM3 (1.8-7.7) 14.5 TH/MM3 (1.8-7.7) 16.1 TH/MM3 (1.8-7.7) Lymphocytes # (Auto) 2.5 TH/MM3 (1.0-4.8) 2.4 TH/MM3 (1.0-4.8) 1.3 TH/MM3 (1.0-4.8) Monocytes # (Auto) 0.9 TH/MM3 (0-0.9) 1.2 TH/MM3 (0-0.9) 1.0 TH/MM3 (0-0.9) Eosinophils # (Auto) 0.6 TH/MM3 (0-0.4) 0.6 TH/MM3 (0-0.4) 0.2 TH/MM3 (0-0.4) Basophils # (Auto) 0.2 TH/MM3 (0-0.2) 0.1 TH/MM3 (0-0.2) 0.2 TH/MM3 (0-0.2) CBC Comment AUTO DIFF AUTO DIFF AUTO DIFF Differential Total Cells Counted 100 100 100 Neutrophils % (Manual) 55 % (16-70) 66 % (16-70) 79 % (16-70) Band Neutrophils % 9 % (0-6) 10 % (0-6) 5 % (0-6) Lymphocytes % 20 % (9-44) 9 % (9-44) 8 % (9-44) Monocytes % 3 % (0-8) 3 % (0-8) 3 % (0-8) Eosinophils % 5 % (0-4) 6 % (0-4) Basophils % 2 % (0-2) Neutrophils # (Manual) 12.2 TH/MM3 (1.8-7.7) 15.5 TH/MM3 (1.8-7.7) 16.7 TH/MM3 (1.8-7.7) Metamyelocytes 3 % (0-1) 2 % (0-1) 3 % (0-1) Myelocytes 3 % (0-0) 4 % (0-0) 2 % (0-0) Differential Comment FINAL DIFF MANUAL FINAL DIFF MANUAL FINAL DIFF MANUAL Platelet Estimate NORMAL (NORMAL) NORMAL (NORMAL) NORMAL (NORMAL) Platelet Morphology Comment NORMAL (NORMAL) NORMAL (NORMAL) NORMAL (NORMAL) Blood Urea Nitrogen 65 MG/DL (7-18) 74 MG/DL (7-18) Creatinine 1.35 MG/DL (0.50-1.00) 1.67 MG/DL (0.50-1.00) Random Glucose 190 MG/DL (74-106) 95 MG/DL (74-106) Calcium Level 8.8 MG/DL (8.5-10.1) 8.7 MG/DL (8.5-10.1) Magnesium Level 2.5 MG/DL (1.5-2.5) Sodium Level 129 MEQ/L (136-145) 130 MEQ/L (136-145) Potassium Level 6.3 MEQ/L (3.5-5.1) 6.3 MEQ/L (3.5-5.1) Chloride Level 95 MEQ/L (98-107) 101 MEQ/L (98-107) Carbon Dioxide Level 22.6 MEQ/L (21.0-32.0) 16.9 MEQ/L (21.0-32.0) Anion Gap 11 MEQ/L (5-15) 12 MEQ/L (5-15) Estimat Glomerular Filtration Rate 38 ML/MIN (>89) 30 ML/MIN (>89) Urine Color DARK-YELLOW (YELLW/STRAW) Urine Turbidity CLOUDY (CLEAR) Urine pH 5.0 (5.0-8.5) Urine Specific Ledger 1.026 (1.002-1.035) Urine Protein 30 mg/dL (NEG-TRACE) Urine Glucose (UA) NEG mg/dL (NEG) Urine Ketones 10 mg/dL (NEG) Urine Occult Blood SMALL (NEG) Urine Nitrite NEG (NEG) Urine Bilirubin NEG (NEG) Urine Urobilinogen LESS THAN 2.0 MG/DL (LESS Urine Leukocyte Esterase LARGE (NEG) Urine RBC 15 /hpf (0-3) Urine WBC /hpf (0-5) Urine WBC Clumps FEW (NONE) Urine Squamous Epithelial Cells 18 /hpf (0-5) Urine Bacteria FEW /hpf (NONE) Microscopic Urinalysis Comment CATH-CULTURE IND Total Protein 7.1 GM/DL (6.4-8.2) Albumin 2.0 GM/DL (3.4-5.0) Alkaline Phosphatase 389 U/L (45-117) Aspartate Amino Transf (AST/SGOT) 26 U/L (15-37) Alanine Aminotransferase (ALT/SGPT) 31 U/L (10-53) Total Bilirubin 0.3 MG/DL (0.2-1.0) Lactic Acid Level 1.3 mmol/L (0.4-2.0) B-Type Natriuretic Peptide 1362 PG/ML (0-100) Result Diagram: 01/16/18 0824 01/16/18 0824 Microbiology Microbiology Date/Time Source Procedure Growth Status 01/13/18 11:37 Blood Peripheral Aerobic Blood Culture - Preliminary NO GROWTH IN 3 DAYS Resulted 01/13/18 11:37 Blood Peripheral Anaerobic Blood Culture - Preliminary NO GROWTH IN 3 DAYS Resulted 01/13/18 11:30 Blood Peripheral Aerobic Blood Culture - Preliminary NO GROWTH IN 3 DAYS Resulted 01/13/18 11:30 Blood Peripheral Anaerobic Blood Culture - Preliminary NO GROWTH IN 3 DAYS Resulted 01/14/18 14:30 Urine Catheterized Urine Urine Culture - Preliminary Yeast Species Gram Positive Cocci Resulted Imaging Last 48 hours Impressions Chest X-Ray 01/16/18 0000 Signed Impressions: Service Date/Time: Tuesday, January 16, 2018 07:52 - CONCLUSION: 1. Diffuse bilateral pulmonary infiltrates and bilateral pleural effusions, unchanged. Findings could represent congestive heart failure is suggested in the clinical history. 2. Stable position of tracheostomy tube. Plain film findings characteristic of a chronic right-sided rotator cuff injury. Ananda Oneill MD Procedures * 08/05/17 -right thoracentesis * 05/16/17 -PEG tube placement * 05/15/17 -tracheostomy placement * 05/08/17 -left-sided chest tube/pigtail * 04/30/17 -endotracheal intubation * 04/21/17 -Left hip reduction and intramedullary nail fixation . 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 (2) Pain 0-10 Scale: Unable to quantify Comment: Secondary to surgical intervention, bedbound status, prolonged hospitalization. (3) Debility 0-10 Scale: Unable to quantify Comment: Progressive. Pertinent Non-Medical Issues Psychosocial: Patient is originally from [facility]. Residing in [place] up until 2013 she moved to [place] to live with only daughter Trice. Patient is a , in 2006. Spiritual: No confucianism affiliation. Legal: No advance directives completed. Ethical issues impacting care: Patient unable to participating in medical decision-making secondary to clinical condition. Patient's daughter acting as healthcare proxy decision maker. . Important Contacts Daughter Norma Salvador . . Prognosis Mrs. Hein needs a 76-year-old female with a past medical history of hypertension, diabetes mellitus and prior CVA. Presented with left hip fracture , underwent ORIF. Clinical course complicated by large left MCA infarct with edema. Overall prognosis is poor for a meaningful neurological recovery or long -term survival given acute stroke, chronic ongoing comorbidities and advanced age. Patient appears hospice appropriate should family elect comfort-directed care. . Code Status: Full Code Plan * CODE STATUS: FULL CODE. * HEALTHCARE DECISION-MAKING: Patient not capacitated for medical decision- making given severe stroke, not expected to regain capacity. No advance directives completed, patient is . As per [place] statute, healthcare proxy decision-making falls to patient's only daughter Trice Salvador. * GOALS OF CARE: Goals of care readdress 01/16/18 given patient's worsening clinical condition. Daughter Trice Salvador acting as healthcare proxy decision maker elected aggressive management to include FULL code. * Lengthy telephone conversation with patient's daughter Trice Salvador. Reviewed in detail patient's multiple complications and clinical setbacks since the beginning of December. Share concerns of patient's current clinical condition to include ventilator dependent respiratory failure, bilateral pulmonary infiltrates/effusions, leukocytosis with multiple active kqoyi-jbqo-etfujlvpx infections, acute renal failure, clinical presentation of CHF and patient not tolerating peg tube feedings at this time. Reviewed no meaningful neurological recovery in the setting of MCA stroke 9 months ago. Reviewed patient is NOT anticipated to recover, reviewed likely trajectory of illness to include continue progressive decline, additional complications and . Gently discussed that given her worsening clinical condition with prolonged hospitalization, patient appears to be approaching end of life in spite of aggressive management. Reviewed hospice philosophy and benefits, discussed that she has the option to transition patient to comfort. Daughter was encouraged to discussed patient's clinical condition and prognosis with attending and consulting physicians. * SYMPTOMS: * = Shortness of breath, chronic respiratory failure. Currently on full ventilator support. Sputum cultures with Pseudomonas Aeruginosa -multidrug- resistant. = Debility, progressive. Expected to worsen given acute stroke, multiple ongoing comorbidities, acute complications, advanced age and prolonged hospitalization. * Active listening provided to daughter. * Case discussed with Dr. Bashir and bedside RN Leah. * Palliative care contact information has been provided to patient's daughter. * Palliative care will continue to follow-up as needed for further clarifications of goals of care as patient's clinical condition continues to evolve. . Time Spent Total Floor Time (mins): 42 (Total time to include review medical records, physical exam, goals of care conversation with patient's daughter, case discussion with attending and bedside RN.) >50% Counseling/Coord of Care: Yes Attestation To help prompt me to consider important information that might be impacting today's encounter and assessment, information from prior notes written by myself or my colleagues may have been "brought forward" into today's note. My signature on this note, however, is an attestation that I personally performed the exam, history, and/or decision-making noted today, and, unless otherwise indicated, the interactions with patient, family, and staff as well as the review of records all occurred today. I also attest that the listed assessment and stated plan reflect my best clinical judgment today based on the combination of historical information, prior notes, and today's exam/ interactions. When time spent is documented, it refers only to time spent today by the signer, or if indicated, combined time spent today by collaborating physician/nurse practitioner. Ashly Steven January 16, 2018 11:44
[2018-01-16] MEDS: ALBUMIN 5% INJ 250 ML IV SCH (12:06)
[2018-01-16] MEDS: LACTOBACILLUS ACIDOPHILUS TAB PEG SCH ×3 (12:07→17:06)
[2018-01-16] MEDS: CALCIUM POLYCARBOPHIL 625 MG TAB PEG SCH ×2 (12:07→22:03)
[2018-01-16] MEDS: CALCIUM/VITAMIN D 250 MG/125 U TAB PEG SCH ×3 (12:07→17:06)
[2018-01-16] MEDS: FUROSEMIDE 40 MG/4 ML VIAL IV PUSH SCH ×2 (12:07→17:06)
[2018-01-16] MEDS: CHOLECALCIFEROL (VIT D3) 5000 UNIT CAP PEG SCH (12:07)
[2018-01-16] MEDS: LANSOPRAZOLE SOLUTAB 30 MG TAB NG SCH (12:08)
--- NOTE | 2018-01-16 12:25 | EKG ---
Date Performed: 01/16/2018 Time Performed: 09:44:40 PTAGE: 77 years EKG: Rhythm appears to be junctional rhythm, which is new compared to the prior tracing. LOW QRS VOLTAGE POSSIBLE ANTERIOR MYOCARDIAL INFARCTION , OF INDETERMINATE AGE ABNORMAL ECG PREVIOUS TRACING : 01/02/2018 10.03 DOCTOR: Toy Mercado Interpretating Date/Time 01/16/2018 12:22:00
--- NOTE | 2018-01-16 12:37 | HHI.IDPN ---
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 She underwent repair of her fracture, and while in the hospital recovering she had a large left MCA CVA. She has required ventilatory support, and ended up getting a tracheostomy on May 15, and a PEG placement May 16. Patient was successfully weaned from the vent. Her neurological status had some improvement , and she has been awake but only intermittently following commands. Patient has been treated for multiple infections including pneumonia and UTI. She has had infections with MDR, including resistant Pseudomonas as well as VRE. About 2 days ago, she had an episode of vomiting and witnessed aspiration. She has been febrile, and her WBC had gone up to 17,000. Chest x-ray done showed some no infiltrates especially on the right side. She also has required BiPAP. Records reviewed. Patient was last seen December 24, and completed a course of treatment for aspiration pneumonia with gram-negative siomara She finished Zosyn last December 27 and at that time she was doing well on T-piece. About a week ago she started having problem with increasing secretions, very thick, and mucous plugging. She started having some intermittent fevers january 04 She had undergone bronchoscopy January 02 Bronchial cultures grew MDR Pseudomonas, and a sensitive Serratia Her WBC is up to 16,000 She is still febrile She has been back on the vent, and currently on CPAP Has very thick light yellow green secretions Also has a lot of oral secretions Has no Leavitt Has PIV in her left foot Notes reviewed D/W RN Temlakshmi ok Remains on the vent, on AC Having problems with worsening renal function, decreasing UO BP ok WBC remains elevated at 18K CXR today with stable infiltrates Rash same on L chest wall evolving Sputum PSAE R to Avycaz and Zerbaxa UA (+) UC Yeast and GPC Antibiotics Cefepime Colistin nebs Current Medications Medications (Trade) Dose Ordered Sig/Zeferino Route Start Time Stop Time Status Last Admin (Narcan Inj) 0.4 mg UNSCH PRN IV 04/20/17 17:15 (Prevacid Odt) 30 mg DAILY NG 05/08/17 09:00 01/16/18 12:08 (Pill Splitter) 1 ea UNSCH PRN OTHER 09/05/17 11:00 (Apresoline) 10 mg Q8HR PEG 09/24/17 14:00 01/15/18 12:46 (Norvasc) 10 mg DAILY PEG 10/04/17 09:00 Future Hold 01/15/18 07:46 (Oscal-D 250-125) 250 mg TID PEG 10/03/17 13:00 01/16/18 12:07 (Vitamin D3) 5,000 units DAILY PEG 10/04/17 09:00 01/16/18 12:07 (Catapres) 0.1 mg Q6H PRN PEG 10/03/17 12:30 11/27/17 00:23 (Albuterol Neb) 2.5 mg Q2HR NEB PRN NEB 10/03/17 21:45 01/15/18 19:20 (Tylenol 650 Mg/ 20 ml Liq) 650 mg Q6H PRN PEG 10/26/17 06:45 01/13/18 00:03 (D50w (Vial) Inj) 50 ml UNSCH PRN IV PUSH 11/04/17 12:30 01/03/18 14:03 (Glucagon Inj) 1 mg UNSCH PRN OTHER 11/04/17 12:30 (NovoLIN R SUPPLEMENTAL SCALE) 1 Q6H SQ 11/04/17 12:30 01/15/18 18:30 (Prinivil) 5 mg DAILY PEG 11/23/17 09:00 Future Hold 01/15/18 07:46 (Zofran Inj) 4 mg Q6HR PRN IV PUSH 12/08/17 05:00 01/15/18 20:03 (Tears Naturale Opth Soln) 1 drop Q8H PRN EACH EYE 12/19/17 19:30 01/10/18 09:11 (Questran Light Pkt) 4 gm BID PEG 12/25/17 09:00 01/15/18 20:03 (Levemir Inj) 7 units Q12H SQ 01/04/18 00:00 01/16/18 00:28 (Coly-Mycin M Neb) 75 mg BID NEB NEB 01/07/18 12:00 01/16/18 07:59 (Lactinex) 1 tab TID PEG 01/10/18 13:00 01/16/18 12:07 (Fiber Con) 625 mg Q12HR PEG 01/10/18 21:00 01/16/18 12:07 (Lomotil 2.5-0.025 Mg Liq) 5 ml Q6H PRN PEG 01/10/18 12:15 (Roxicodone Intensol Liq) 5 mg Q6H PRN PEG 01/10/18 12:15 01/15/18 20:03 (Valtrex) 1,000 mg Q8HR PEG 01/10/18 14:00 01/16/18 14:59 01/16/18 05:32 (Neurontin) 100 mg TID PRN PO 01/10/18 12:30 01/11/18 09:51 (Lasix Inj) 40 mg BID@,18 IV PUSH 01/13/18 18:00 01/16/18 12:07 (Diflucan) 100 mg Q24H PO 01/14/18 14:00 01/15/18 12:46 (Reglan Liq) 10 mg TID G-TUBE 01/15/18 18:00 01/16/18 09:00 (Free Water) 200 ml Q6HR G-TUBE 01/15/18 18:00 01/16/18 12:11 Albumin Human 250 ml @ 250 mls/hr Q12H IV 01/16/18 11:00 01/16/18 12:06 Cefepime HCl 2000 mg/Sodium Chloride 100 ml @ 200 mls/hr Q12H IV 01/16/18 14:00 01/22/18 11:59 Lines Line sites with no e.o infection. Past Medical History Reviewed Allergies: Coded Allergies: No Known Allergies (Unverified , 04/20/17) Objective . Vital Signs Date Time Temp Pulse Resp B/P (MAP) Pulse Ox O2 Delivery O2 Flow Rate FiO2 01/16/18 12:03 97 50 01/16/18 08:00 98 50 01/16/18 06:30 99 Mechanical Ventilator 50 01/16/18 04:30 99 50 01/16/18 04:04 98.6 40 19 127/57 (80) 96 01/16/18 04:00 55 01/16/18 01:00 43 18 110/56 (74) 95 01/16/18 01:00 43 01/16/18 01:00 98 55 01/16/18 00:20 97.8 51 19 114/59 (77) 95 01/16/18 00:00 55 01/16/18 00:00 35 01/15/18 23:00 50 01/15/18 23:00 50 18 111/51 (71) 97 01/15/18 22:00 42 18 113/48 (69) 93 01/15/18 22:00 42 01/15/18 21:47 48 18 115/59 (77) 98 01/15/18 21:00 49 01/15/18 21:00 20 01/15/18 20:00 55 01/15/18 20:00 97 Mechanical Ventilator 55 01/15/18 20:00 49 01/15/18 19:21 98.8 50 25 148/66 (93) 99 01/15/18 19:12 96 55 01/15/18 19:00 49 01/15/18 16:00 45 01/15/18 15:00 40 01/15/18 14:10 94 55 . Laboratory Tests Test 01/14/18 13:40 01/16/18 08:24 White Blood Count 18.9 TH/MM3 18.8 TH/MM3 Red Blood Count 2.75 MIL/MM3 2.52 MIL/MM3 Hemoglobin 8.4 GM/DL 7.8 GM/DL Hematocrit 25.6 % 23.6 % Mean Corpuscular Volume 93.1 FL 93.8 FL Mean Corpuscular Hemoglobin 30.6 PG 31.0 PG Mean Corpuscular Hemoglobin Concent 32.9 % 33.1 % Red Cell Distribution Width 16.1 % 16.1 % Platelet Count 359 TH/MM3 429 TH/MM3 Mean Platelet Volume 9.5 FL 9.4 FL Neutrophils (%) (Auto) 76.8 % 85.6 % Lymphocytes (%) (Auto) 12.8 % 7.0 % Monocytes (%) (Auto) 6.6 % 5.1 % Eosinophils (%) (Auto) 3.0 % 1.3 % Basophils (%) (Auto) 0.8 % 1.0 % Neutrophils # (Auto) 14.5 TH/MM3 16.1 TH/MM3 Lymphocytes # (Auto) 2.4 TH/MM3 1.3 TH/MM3 Monocytes # (Auto) 1.2 TH/MM3 1.0 TH/MM3 Eosinophils # (Auto) 0.6 TH/MM3 0.2 TH/MM3 Basophils # (Auto) 0.1 TH/MM3 0.2 TH/MM3 CBC Comment AUTO DIFF AUTO DIFF Differential Total Cells Counted 100 100 Neutrophils % (Manual) 66 % 79 % Band Neutrophils % 10 % 5 % Lymphocytes % 9 % 8 % Monocytes % 3 % 3 % Eosinophils % 6 % Neutrophils # (Manual) 15.5 TH/MM3 16.7 TH/MM3 Metamyelocytes 2 % 3 % Myelocytes 4 % 2 % Differential Comment FINAL DIFF MANUAL FINAL DIFF MANUAL Platelet Estimate NORMAL NORMAL Platelet Morphology Comment NORMAL NORMAL Laboratory Tests Test 01/16/18 08:24 Blood Urea Nitrogen 74 MG/DL Creatinine 1.67 MG/DL Random Glucose 95 MG/DL Total Protein 7.1 GM/DL Albumin 2.0 GM/DL Calcium Level 8.7 MG/DL Alkaline Phosphatase 389 U/L Aspartate Amino Transf (AST/SGOT) 26 U/L Alanine Aminotransferase (ALT/SGPT) 31 U/L Total Bilirubin 0.3 MG/DL Sodium Level 130 MEQ/L Potassium Level 6.3 MEQ/L Chloride Level 101 MEQ/L Carbon Dioxide Level 16.9 MEQ/L Anion Gap 12 MEQ/L Estimat Glomerular Filtration Rate 30 ML/MIN Lactic Acid Level 1.3 mmol/L B-Type Natriuretic Peptide 1362 PG/ML Microbiology Date/Time Source Procedure Growth Status 01/14/18 14:30 Urine Catheterized Urine Urine Culture - Preliminary Lea Glabrata Group D Enterococcus Resulted Imaging Chest X-Ray 01/16/18 0000 Signed Impressions: Service Date/Time: Tuesday, January 16, 2018 07:52 - CONCLUSION: 1. Diffuse bilateral pulmonary infiltrates and bilateral pleural effusions, unchanged. Findings could represent congestive heart failure is suggested in the clinical history. 2. Stable position of tracheostomy tube. Plain film findings characteristic of a chronic right-sided rotator cuff injury. Ananda Oneill MD Chest X-Ray 01/14/18 0000 Signed Impressions: Service Date/Time: Sunday, January 14, 2018 03:56 - CONCLUSION: Unchanged diffuse pulmonary infiltrates with small effusions. Deangelo Wren Jr., MD Chest X-Ray 01/08/18 0000 Signed Impressions: Service Date/Time: December 03:37 - CONCLUSION: No significant change. Right pleural effusion with bilateral airspace disease right greater than left. Jose R Casanova MD Chest X-Ray 12/21/17 0600 Signed Impressions: Service Date/Time: Thursday, December 21, 2017 05:51 - CONCLUSION: Some improvement in the infiltrates bilaterally. Deangelo Wren Jr., MD Upper Extremity Ultrasound 11/04/17 0000 Signed Impressions: Service Date/Time: Saturday, November 04, 2017 09:57 - CONCLUSION: No thrombus observed. Subcutaneous edema noted. Deangelo Wren Jr., MD Abdomen X-Ray 11/04/17 0000 Signed Impressions: Service Date/Time: Saturday, November 04, 2017 11:58 - CONCLUSION: Gaseous distention of bowel loops could be ileus but unchanged. Benja Ramsey MD CT Angiography 11/01/17 0000 Signed Impressions: Service Date/Time: Wednesday, November 01, 2017 16:47 - CONCLUSION: No evidence for pulmonary embolism. Please see above. Choco Mustafa MD Thoracentesis 08/05/17 1535 Signed Impressions: Service Date/Time: Saturday, August 05, 2017 16:08 - CONCLUSION: Uncomplicated CT-guided thoracentesis. Sage Adler MD Chest Ultrasound 08/02/17 0000 Signed Impressions: Service Date/Time: Tuesday, August 01, 2017 22:06 - CONCLUSION: 1. Moderate right pleural effusion, as above. Alejo De La Vega MD Hip and Pelvis X-Ray 07/09/17 0000 Signed Impressions: Service Date/Time: Sunday, July 09, 2017 14:04 - CONCLUSION: Anatomic alignment. Ricardo Middleton MD FACR Liver Ultrasound 06/19/17 0000 Signed Impressions: Service Date/Time: June 13:20 - CONCLUSION: 1. Mildly increased echotexture of the liver characteristic of hepatic steatosis. 2. Gallbladder sludge. Obdulio Sam MD Head CT 05/15/17 0000 Signed Impressions: Service Date/Time: May 19:59 - CONCLUSION: 1. 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 2. No bleed or new/acute infarct. Obdulio Simms MD Gall Bladder Ultrasound 05/08/17 0000 Signed Impressions: Service Date/Time: May 08:23 - CONCLUSION: Focally unremarkable appearance of the gallbladder Obdulio Chun MD Abdomen/Pelvis CT 05/07/17 0000 Signed Impressions: Service Date/Time: Sunday, May 07, 2017 13:23 - CONCLUSION: 1. Large left pneumothorax. 2. Bilateral lower lobe consolidation and bilateral moderate size pleural effusions. 3. Significant soft tissue thickening of the right lateral chest wall and left gluteus muscle. 4. Mild ascites. The findings were called to Dr. Carney. Deangelo Zamora MD Chest CT 04/30/17 0000 Signed Impressions: Service Date/Time: Sunday, April 30, 2017 09:20 - CONCLUSION: 1. Bilateral pulmonary infiltrates more pronounced within the lower lobes with tiny bilateral pleural effusions. Material seen filling the lower lobe bronchi bilaterally either related to purulent material or perhaps mucus plugging. Deangelo Wren Jr., MD Carotid Artery Ultrasound 04/24/17 0000 Signed Impressions: Service Date/Time: April 09:45 - CONCLUSION: 1. No hemodynamically significant carotid artery stenosis. Arnie Middleton MD Hip X-Ray 04/21/17 0000 Signed Impressions: Service Date/Time: Friday, April 21, 2017 11:36 - CONCLUSION: Fluoroscopic images during placement of intramedullary siomara left femur. Benja Ramsey MD Physical Exam GENERAL: Eyes closed, on the vent, NAD SKIN: Warm and dry. Has varicella rash in L upper chest to back, flattening HEAD: Atraumatic. Normocephalic. No temporal wasting, or tenderness. EYES: [place] conjunctiva. No petechia or hemorrhage. Pupils equal, round and reactive to light. No scleral icterus. No injection or drainage. EARS, NOSE AND THROAT: Nose without bleeding or purulent nasal discharge. No sinus tenderness. Mucous membranes pink and moist. NECK: Trachea midline. Trach site ok. Supple and not tender, no meningeal signs CARDIOVASCULAR: Regular rate and rhythm. Soft heart sounds. RESPIRATORY: has bilateral rhonchi worse on R than L. Decreased breath sounds at the bases ABDOMEN: More distended, some grimacing during palpation. Bowel sounds present and normoactive. PEG site ok EXTREMITIES: No clubbing, cyanosis, or edema. Well perfused and warm. NEUROLOGICAL: Eyes closed PSYCHIATRIC: Unable to assess LINE: No evidence of infection : Leavitt in place Assessment & Plan Remarks IMPRESSION Recurrent PNA, mucus plugging New sepsis due to new PNA MDR PSAE and sensitive Serratia Herpes Zoster Fevers, better - ?due to PNA or zoster - ? 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
[2018-01-16] MEDS ORDERED: FLUCONAZOLE 100 MG TAB PO SCH (12:45)
--- NOTE | 2018-01-16 13:00 | RADRPT ---
EXAM DATE/TIME: 01/16/2018 12:01 [facility] COMPARISON: No previous studies available for comparison. INDICATIONS : Increased BUN/Creatinine. MEDICAL HISTORY : Stroke. Hypertension. Renal failure, acute. Gait disturbance. Diabetes. MDR-pseudomonas, Vancomycin r esistant enterococci. Pneumonia. Hearing loss. SURGICAL HISTORY : Bronchoscopy. ENCOUNTER: Initial ACUITY: 1 day PAIN SCORE: Nonresponsive. LOCATION: Bilateral flank MEASUREMENTS: RIGHT KIDNEY: 10.7 x 5.3 x 4.9 cm LEFT KIDNEY: 11.0 x 5.0 x 5.2 cm FINDINGS: RIGHT KIDNEY: Renal cortex is normal in thickness and echotexture. No hydronephrosis, stone, or mass. LEFT KIDNEY: Renal cortex is normal in thickness and echotexture. Mild hydronephrosis without stone, or mass. BLADDER: Bladder is empty and not visualized. CONCLUSION: 1. Mild left-sided hydronephrosis. 2. Right kidney appears unremarkable 3. Nonvisualization of the bladder. Benja Ramsey MD on January 16, 2018 at 12:58 Board Certified Radiologist. This report was verified electronically.
[2018-01-16] MEDS ORDERED: FUROSEMIDE 40 MG/4 ML VIAL IV PUSH ONE (14:30)
--- NOTE | 2018-01-16 14:43 | PD.CONS ---
HPI Service Nephrology Consult Requested By Reason for Consult Acute Renal Failure, hyperkalemia Primary Care Physician Unknown History of Present Illness This is a 77 y/o female patient. She was admitted 271 days ago, on 04/21/17. She was admitted for left hip fracture and DKA. The hospitalization was complicated by multiple infections and L MCA CVA with right hemiparesis. The patient suffered respiratory failure, has not been successfully weened from the vent. Her creatinine has been normal, 0.83 on the of this month. On the it ana to 1.35, today is 1.67. She is hyperkalemic at 6.3, has been given IV insulin and dextrose in addition to Kayexalate. We were consulted to assist with management. The patient is non verbal, on the vent, and palliative has been following. Apparently the daughter still has unrealistic expectations regarding her prognosis. (Dawn Cain) Review of Systems ROS Limitations: Clinical Condition, Intubated, Unresponsive (Dawn Cain) Past Family Social History Allergies: Coded Allergies: No Known Allergies (Unverified , 04/20/17) Past Medical History CVA with R hemiparesis Hypertension DM II Hepatitis C Obesity Past Surgical History S/P trach 05/2017 S/P PEG 05/2017 ORIF L hip Reported Medications See Admission H&P Active Ordered Medications Current Medications Medications (Trade) Dose Ordered Sig/Zeferino Route Start Time Stop Time Status Last Admin (Narcan Inj) 0.4 mg UNSCH PRN IV 04/20/17 17:15 (Prevacid Odt) 30 mg DAILY NG 05/08/17 09:00 01/16/18 12:08 (Pill Splitter) 1 ea UNSCH PRN OTHER 09/05/17 11:00 (Apresoline) 10 mg Q8HR PEG 09/24/17 14:00 01/15/18 12:46 (Norvasc) 10 mg DAILY PEG 10/04/17 09:00 Future Hold 01/15/18 07:46 (Oscal-D 250-125) 250 mg TID PEG 10/03/17 13:00 01/16/18 12:07 (Vitamin D3) 5,000 units DAILY PEG 10/04/17 09:00 01/16/18 12:07 (Albuterol Neb) 2.5 mg Q2HR NEB PRN NEB 10/03/17 21:45 01/15/18 19:20 (Tylenol 650 Mg/ 20 ml Liq) 650 mg Q6H PRN PEG 10/26/17 06:45 01/13/18 00:03 (D50w (Vial) Inj) 50 ml UNSCH PRN IV PUSH 11/04/17 12:30 01/03/18 14:03 (Glucagon Inj) 1 mg UNSCH PRN OTHER 11/04/17 12:30 (NovoLIN R SUPPLEMENTAL SCALE) 1 Q6H SQ 11/04/17 12:30 01/15/18 18:30 (Prinivil) 5 mg DAILY PEG 11/23/17 09:00 Future Hold 01/15/18 07:46 (Zofran Inj) 4 mg Q6HR PRN IV PUSH 12/08/17 05:00 01/15/18 20:03 (Tears Naturale Opth Soln) 1 drop Q8H PRN EACH EYE 12/19/17 19:30 01/10/18 09:11 (Questran Light Pkt) 4 gm BID PEG 12/25/17 09:00 01/15/18 20:03 (Levemir Inj) 7 units Q12H SQ 01/04/18 00:00 01/16/18 00:28 (Coly-Mycin M Neb) 75 mg BID NEB NEB 01/07/18 12:00 01/16/18 07:59 (Lactinex) 1 tab TID PEG 01/10/18 13:00 01/16/18 12:07 (Fiber Con) 625 mg Q12HR PEG 01/10/18 21:00 01/16/18 12:07 (Lomotil 2.5-0.025 Mg Liq) 5 ml Q6H PRN PEG 01/10/18 12:15 (Roxicodone Intensol Liq) 5 mg Q6H PRN PEG 01/10/18 12:15 01/15/18 20:03 (Valtrex) 1,000 mg Q8HR PEG 01/10/18 14:00 01/16/18 14:59 01/16/18 05:32 (Neurontin) 100 mg TID PRN PO 01/10/18 12:30 01/11/18 09:51 (Lasix Inj) 40 mg BID@09,18 IV PUSH 01/13/18 18:00 01/16/18 12:07 (Diflucan) 100 mg Q24H PO 01/14/18 14:00 01/15/18 12:46 (Reglan Liq) 10 mg TID G-TUBE 01/15/18 18:00 01/16/18 09:00 (Free Water) 200 ml Q6HR G-TUBE 01/15/18 18:00 01/16/18 12:11 Albumin Human 250 ml @ 250 mls/hr Q12H IV 01/16/18 11:00 01/16/18 12:06 Cefepime HCl 2000 mg/Sodium Chloride 100 ml @ 200 mls/hr Q12H IV 01/16/18 14:00 01/22/18 11:59 (Zyvox) 600 mg Q12HR PO 01/16/18 12:45 (Lasix Inj) 40 mg ONCE ONCE IV PUSH 01/16/18 14:30 01/16/18 14:31 UNV Family History Unable to evaluate Social History She has a daughter, is not Unknown smoking and ETOH history Apparently was active prior to this admission (Dawn Cain) Physical Exam Vital Signs Vital Signs Date Time Temp Pulse Resp B/P (MAP) Pulse Ox O2 Delivery O2 Flow Rate FiO2 01/16/18 12:03 97 50 01/16/18 08:00 98 50 01/16/18 07:00 40 01/16/18 06:30 99 Mechanical Ventilator 50 01/16/18 04:30 99 50 01/16/18 04:04 98.6 40 19 127/57 (80) 96 01/16/18 04:00 55 01/16/18 01:00 43 18 110/56 (74) 95 01/16/18 01:00 43 01/16/18 01:00 98 55 01/16/18 00:20 97.8 51 19 114/59 (77) 95 01/16/18 00:00 55 01/16/18 00:00 35 01/15/18 23:00 50 01/15/18 23:00 50 18 111/51 (71) 97 01/15/18 22:00 42 18 113/48 (69) 93 01/15/18 22:00 42 01/15/18 21:47 48 18 115/59 (77) 98 01/15/18 21:00 49 01/15/18 21:00 20 01/15/18 20:00 55 01/15/18 20:00 97 Mechanical Ventilator 55 01/15/18 20:00 49 01/15/18 19:21 98.8 50 25 148/66 (93) 99 01/15/18 19:12 96 55 01/15/18 19:00 49 01/15/18 16:00 45 01/15/18 15:00 40 Physical Exam female Sleeping on vent, does not awake or follow commands PERRLA S1/S2, bradycardic in 40-50s Lungs shallow, vented Abd round, firm, normal bowel sounds 2-3+ anasarca Laboratory Laboratory Tests Test 01/16/18 08:24 01/16/18 13:47 White Blood Count 18.8 Red Blood Count 2.52 Hemoglobin 7.8 Hematocrit 23.6 Mean Corpuscular Volume 93.8 Mean Corpuscular Hemoglobin 31.0 Mean Corpuscular Hemoglobin Concent 33.1 Red Cell Distribution Width 16.1 Platelet Count 429 Mean Platelet Volume 9.4 Neutrophils (%) (Auto) 85.6 Lymphocytes (%) (Auto) 7.0 Monocytes (%) (Auto) 5.1 Eosinophils (%) (Auto) 1.3 Basophils (%) (Auto) 1.0 Neutrophils # (Auto) 16.1 Lymphocytes # (Auto) 1.3 Monocytes # (Auto) 1.0 Eosinophils # (Auto) 0.2 Basophils # (Auto) 0.2 CBC Comment AUTO DIFF Differential Total Cells Counted 100 Neutrophils % (Manual) 79 Band Neutrophils % 5 Lymphocytes % 8 Monocytes % 3 Neutrophils # (Manual) 16.7 Metamyelocytes 3 Myelocytes 2 Differential Comment FINAL DIFF MANUAL Platelet Estimate NORMAL Platelet Morphology Comment NORMAL Blood Urea Nitrogen 74 Creatinine 1.67 Random Glucose 95 Total Protein 7.1 Albumin 2.0 Calcium Level 8.7 Alkaline Phosphatase 389 Aspartate Amino Transf (AST/SGOT) 26 Alanine Aminotransferase (ALT/SGPT) 31 Total Bilirubin 0.3 Sodium Level 130 Potassium Level 6.3 Chloride Level 101 Carbon Dioxide Level 16.9 Anion Gap 12 Estimat Glomerular Filtration Rate 30 Lactic Acid Level 1.3 B-Type Natriuretic Peptide 1362 Date/Time Source Procedure Growth Status 01/13/18 11:37 Blood Peripheral Aerobic Blood Culture - Preliminary NO GROWTH IN 3 DAYS Resulted 01/13/18 11:37 Blood Peripheral Anaerobic Blood Culture - Preliminary NO GROWTH IN 3 DAYS Resulted 08/05/17 14:25 Fluid Pleural Fluid Gram Stain - Final Complete 08/05/17 14:25 Fluid Pleural Fluid Body Fluid Culture - Final NO GROWTH IN 72 HRS.--AEROBICALLY OR ... Complete 12/23/17 17:00 Stool Stool Cryptosporidium Exam - Final NEGATIVE - NO CRYPTOSPORIDIUM ANTIGEN... Complete 12/23/17 17:00 Stool Stool Stool Pus (JEFFREY) - Final NO WBC'S SEEN Complete 12/23/17 17:00 Stool Stool Giardia Antigen (JEFFREY) - Final NEGATIVE - NO GIARDIA ANTIGEN DETECTE... Complete 01/07/18 09:45 Sputum Endotracheal Gram Stain - Final Complete 01/07/18 09:45 Sputum Culture - Final Pseudomonas Aeruginosa Multi-Drug Resistant Serratia Marcescens Complete 01/14/18 14:30 Urine Catheterized Urine Urine Culture - Preliminary Lea Glabrata Group D Enterococcus Resulted (Dawn Cain) Result Diagram: 01/16/18 0824 01/16/18 0824 Imaging Last Impressions Renal Ultrasound 01/16/18 0000 Signed Impressions: Service Date/Time: Tuesday, January 16, 2018 12:01 - CONCLUSION: 1. Mild left- sided hydronephrosis. 2. Right kidney appears unremarkable 3. Nonvisualization of the bladder. Benja Ramsey MD Chest X-Ray 01/16/18 0000 Signed Impressions: Service Date/Time: Tuesday, January 16, 2018 07:52 - CONCLUSION: 1. Diffuse bilateral pulmonary infiltrates and bilateral pleural effusions, unchanged. Findings could represent congestive heart failure is suggested in the clinical history. 2. Stable position of tracheostomy tube. Plain film findings characteristic of a chronic right-sided rotator cuff injury. Ananda Oneill MD Abdomen X-Ray 01/14/18 0000 Signed Impressions: Service Date/Time: Sunday, January 14, 2018 15:26 - CONCLUSION: 1. Air distention of the gastric lumen and small bowel loops with some air identified in the colon. Possible hypodynamic ileus. 2. Degenerative fibroid Ananda Oneill MD Upper Extremity Ultrasound 11/04/17 0000 Signed Impressions: Service Date/Time: Saturday, November 04, 2017 09:57 - CONCLUSION: No thrombus observed. Subcutaneous edema noted. Deangelo Wren Jr., MD CT Angiography 11/01/17 0000 Signed Impressions: Service Date/Time: Wednesday, November 01, 2017 16:47 - CONCLUSION: No evidence for pulmonary embolism. Please see above. Choco Mustafa MD Thoracentesis 08/05/17 1535 Signed Impressions: Service Date/Time: Saturday, August 05, 2017 16:08 - CONCLUSION: Uncomplicated CT-guided thoracentesis. Sage Adler MD Chest Ultrasound 08/02/17 0000 Signed Impressions: Service Date/Time: Tuesday, August 01, 2017 22:06 - CONCLUSION: 1. Moderate right pleural effusion, as above. Alejo De La Vega MD Hip and Pelvis X-Ray 07/09/17 0000 Signed Impressions: Service Date/Time: Sunday, July 09, 2017 14:04 - CONCLUSION: Anatomic alignment. Ricardo Middleton MD FACR Liver Ultrasound 06/19/17 0000 Signed Impressions: Service Date/Time: June 13:20 - CONCLUSION: 1. Mildly increased echotexture of the liver characteristic of hepatic steatosis. 2. Gallbladder sludge. Obdulio Sam MD Head CT 05/15/17 0000 Signed Impressions: Service Date/Time: May 19:59 - CONCLUSION: 1. 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 2. No bleed or new/acute infarct. Obdulio Simms MD Gall Bladder Ultrasound 05/08/17 0000 Signed Impressions: Service Date/Time: May 08:23 - CONCLUSION: Focally unremarkable appearance of the gallbladder Obdulio Chun MD Abdomen/Pelvis CT 05/07/17 0000 Signed Impressions: Service Date/Time: Sunday, May 07, 2017 13:23 - CONCLUSION: 1. Large left pneumothorax. 2. Bilateral lower lobe consolidation and bilateral moderate size pleural effusions. 3. Significant soft tissue thickening of the right lateral chest wall and left gluteus muscle. 4. Mild ascites. The findings were called to Dr. Carney. Deangelo Zamora MD Chest CT 04/30/17 0000 Signed Impressions: Service Date/Time: Sunday, April 30, 2017 09:20 - CONCLUSION: 1. Bilateral pulmonary infiltrates more pronounced within the lower lobes with tiny bilateral pleural effusions. Material seen filling the lower lobe bronchi bilaterally either related to purulent material or perhaps mucus plugging. Deangelo Wren Jr., MD Carotid Artery Ultrasound 04/24/17 0000 Signed Impressions: Service Date/Time: April 09:45 - CONCLUSION: 1. No hemodynamically significant carotid artery stenosis. Arnie Middleton MD Hip X-Ray 04/21/17 0000 Signed Impressions: Service Date/Time: Friday, April 21, 2017 11:36 - CONCLUSION: Fluoroscopic images during placement of intramedullary siomara left femur. Benja Ramsey MD (Dawn Cain [facility]) Assessment and Plan Problem List: (1) Acute kidney failure ICD Codes: N17.9 - Acute kidney failure, unspecified Plan: Normal renal function at baseline She is non oliguric, Leavitt was placed yesterday. Renal failure has developed over past two days. Etiology may be due to hypotension from the , may have suffered hypoperfusion injury, possibly ATN Also she is developing sepsis, may have renal injury as a result Renal US showing mild right hydronephrosis, the significance of which is not known. Consider CT abd/pelvis if no improvement in upcoming days In the meantime, she needs diuresis, on Lasix 40 mg IV BID Repeat labs Monitor urine output. Avoid nephrotoxic agents. (2) Hyperkalemia ICD Codes: E87.5 - Hyperkalemia Plan: Due to renal failure and metabolic acidosis. continue diuretics give another insulin 10 units/sodium bicarb/dextrose repeat labs tube feed changed to Nepro (3) HCAP (healthcare-associated pneumonia) ICD Codes: J18.9 - Pneumonia, unspecified organism Status: Resolved Plan: Early sepsis. [place] be transferred [place] [facility] [place], antibiotics include cefepime, zyvoxx. (4) UTI (urinary tract infection) ICD Codes: N39.0 - Urinary tract infection, site not specified Status: Acute Plan: ID following, managing antibiotics On PO difulcan (5) Chronic respiratory failure ICD Codes: J96.10 - Chronic respiratory failure, unspecified whether with hypoxia or hypercapnia Status: Chronic Plan: Unsuccessful vent weening Now with pneumonia Assessment and Plan Her overall prognosis is poor. (Dawn Cain) Assessment and Plan patient was seen and examined. MIRIAM could be due to ATN from sepsis. Also will have to consider the possibility of AIN. US has been read as revealing mild left hydronephrosis. Significance is unclear. She does have a Leavitt, non oliguric. CT of the abdomen can be considered. Avoid nephrotoxic agents. Poor prognosis. (Claudy David MD) Problem Qualifiers (1) UTI (urinary tract infection): Qualified Codes: N39.0 - Urinary tract infection, site not specified (2) Chronic respiratory failure: Qualified Codes: J96.11 - Chronic respiratory failure with hypoxia Dawn Cain January 16, 2018 14:43 Claudy David MD January 16, 2018 22:47
[2018-01-16] MEDS: FLUCONAZOLE 100 MG TAB PO SCH (15:08)
[2018-01-16] MEDS ORDERED: SODIUM BICARB 8.4% (PED) INJ 10 MEQ/10 ML SYR IV PUSH ONE (16:00)
[2018-01-16] MEDS ORDERED: DEXTROSE 50% IN WATER 50 ML SYRINGE IV PUSH ONE (16:00)
[2018-01-16] MEDS ORDERED: SODIUM BICARBONATE 8.4% INJ 50 MEQ/50 ML SYR IV PUSH ONE (16:00)
--- NOTE | 2018-01-16 17:38 | HHI.PR ---
Subjective Remarks No events overnight. . Tolerating tube feeds. Tolerates TF to goal rate No fever Moderate amount of thick mucous BAL positive for AFB PCR Neg for MTB on AC 16, Fi02 55% tr to IMC Urine out put decreased K+ high ,had D50, insulin TF 30cc /hr Objective Vital Signs Vital Signs Date Time Temp Pulse Resp B/P (MAP) Pulse Ox O2 Delivery O2 Flow Rate FiO2 01/16/18 16:00 100 01/16/18 15:40 100 100 01/16/18 15:00 35 01/16/18 15:00 45 16 160/50 (86) 96 01/16/18 14:54 96 45 01/16/18 14:00 100.0 39 26 116/55 (75) 97 01/16/18 13:00 89 24 153/73 (99) 92 01/16/18 12:03 97 50 01/16/18 12:00 100.2 34 26 106/63 (77) 97 01/16/18 12:00 60 01/16/18 11:00 50 24 112/54 (73) 95 01/16/18 10:00 40 22 93/50 (64) 94 01/16/18 09:00 39 28 144/80 (101) 93 01/16/18 08:00 95 Mechanical Ventilator 60 01/16/18 08:00 60 01/16/18 08:00 98 50 01/16/18 08:00 99.9 44 26 123/58 (79) 97 01/16/18 07:00 35 20 133/56 (81) 97 01/16/18 07:00 40 01/16/18 06:30 99 Mechanical Ventilator 50 01/16/18 04:30 99 50 01/16/18 04:04 98.6 40 19 127/57 (80) 96 01/16/18 04:00 55 01/16/18 01:00 43 18 110/56 (74) 95 01/16/18 01:00 43 01/16/18 01:00 98 55 01/16/18 00:20 97.8 51 19 114/59 (77) 95 01/16/18 00:00 55 01/16/18 00:00 35 01/15/18 23:00 50 01/15/18 23:00 50 18 111/51 (71) 97 01/15/18 22:00 42 18 113/48 (69) 93 01/15/18 22:00 42 01/15/18 21:47 48 18 115/59 (77) 98 01/15/18 21:00 49 01/15/18 21:00 20 01/15/18 20:00 55 01/15/18 20:00 97 Mechanical Ventilator 55 01/15/18 20:00 49 01/15/18 19:21 98.8 50 25 148/66 (93) 99 01/15/18 19:12 96 55 01/15/18 19:00 49 I/O 01/15/18 01/15/18 01/15/18 01/16/18 01/16/18 01/16/18 07:00 15:00 23:00 07:00 15:00 23:00 Intake Total 400 ml 120 ml 1640 ml 470 ml Output Total 100 ml 400 ml 550 ml 200 ml Balance 300 ml -280 ml 1090 ml 270 ml Intake Oral 0 ml IV Total 100 ml 1100 ml 370 ml Tube Feeding 0 ml 0 ml 40 ml 0 ml Other 300 ml 120 ml 500 ml 100 ml Output Urine Total 100 ml 400 ml 550 ml 200 ml # Bowel Movements 1 2 0 0 Result Diagram: 01/16/18 0824 01/16/18 1347 Objective Remarks GENERAL: Elderly female,NAD SKIN: Warm and dry. HEAD: Normocephalic. EYES: No scleral icterus. No injection or drainage. NECK: Supple, trachea midline. No JVD or lymphadenopathy. + trach CARDIOVASCULAR: Regular rate and rhythm without murmurs, gallops, or rubs. RESPIRATORY: Breath sounds equal bilaterally. No accessory muscle use. GASTROINTESTINAL: Abdomen soft, non-tender, nondistended. MUSCULOSKELETAL: No cyanosis, or edema. BACK: Nontender without obvious deformity. No CVA tenderness. 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 Prognosis poor but daughter wants full code. Chris Rizo MD January 16, 2018 17:38
[2018-01-16] MEDS: LINEZOLID 600 MG TAB PO SCH (22:03)
[2018-01-17] VITALS (20 sets, daily range): BP systolic 118–141; BP diastolic 58–65; PULSE 63–80; RESP 16; TEMP 98.2–99.1; O2SAT 95–98
[2018-01-17] MEDS: INSULIN NovoLIN REGULAR SUPPLEMENTAL SCALE SQ SCH ×5 (00:08→23:11)
[2018-01-17] MEDS: FREE WATER G-TUBE SCH ×5 (00:11→23:05)
[2018-01-17] MEDS: ONDANSETRON HCL 4 MG/2 ML VIAL IV PUSH PRN (00:24)
[2018-01-17] MEDS: ALBUMIN 5% INJ 250 ML IV SCH ×3 (00:24→23:22)
[2018-01-17] MEDS: CEFEPIME INJ 2,000 MG in SODIUM CHLORIDE 0.9% INJ 100 ML IV SCH ×2 (02:27→15:37)
[2018-01-17 05:19] LABS: AUTOMATED NEUTROPHIL # 10.7 TH/MM3 (1.8-7.7); BASOPHIL # 0.1 TH/MM3 (0-0.2); BASOPHIL % 1.1 % (0.0-2.0); EOSINOPHIL # 0.6 TH/MM3 (0-0.4); EOSINOPHIL % 4.6 % (0.0-4.0); HEMATOCRIT 22.2 % (35.0-46.0); HEMOGLOBIN 7.4 GM/DL (11.6-15.3); LYMPH % 8.8 % (9.0-44.0); LYMPHOCYTE # 1.2 TH/MM3 (1.0-4.8); MEAN CELL VOLUME 94.7 FL (80.0-100.0); MEAN CORPUSCULAR HEMOGLOBIN 31.3 PG (27.0-34.0); MEAN CORPUSCULAR HGB CONC 33.1 % (32.0-36.0); MEAN PLATELET VOLUME 9.1 FL (7.0-11.0); MONOCYTE # 0.8 TH/MM3 (0-0.9); NEUT % 79.5 % (16.0-70.0); PLATELET COUNT 364 TH/MM3 (150-450); RED BLOOD COUNT 2.35 MIL/MM3 (4.00-5.30); RED CELL DISTRIBUTION WIDTH 16.2 % (11.6-17.2); WHITE BLOOD COUNT 13.5 TH/MM3 (4.0-11.0)
[2018-01-17] MEDS: hydrALAZINE HCL 10 MG TAB PEG SCH ×3 (05:21→20:29)
[2018-01-17 05:54] LABS: ALKALINE PHOSPHATASE 317 U/L (45-117); ALT (GPT) 23 U/L (10-53); AST (GOT) 21 U/L (15-37); BICARBONATE 21.1 MEQ/L (21.0-32.0); BLOOD UREA NITROGEN 66 MG/DL (7-18); CALCIUM 9.1 MG/DL (8.5-10.1); CHLORIDE 103 MEQ/L (98-107); CREATININE 1.57 MG/DL (0.50-1.00); GLOMERULAR FILTRATION RATE 32 ML/MIN (>89); GLUCOSE,RANDOM 130 MG/DL (74-106); MAGNESIUM 2.2 MG/DL (1.5-2.5); PHOSPHORUS 4.1 MG/DL (2.5-4.9); SODIUM (NA) 137 MEQ/L (136-145); TOTAL BILIRUBIN ADULT 0.3 MG/DL (0.2-1.0); TOTAL PROTEIN 6.2 GM/DL (6.4-8.2)
[2018-01-17 06:19] LABS: BANDS 2 % (0-6); LYMPHOCYTES 8 % (9-44); METAMYELOCYTES 1 % (0-1); MONOCYTES 4 % (0-8); MYELOCYTES 2 % (0-0); NEUTROPHIL # MANUAL DIFF 11.6 TH/MM3 (1.8-7.7); POLYS (SEG NEUTROPHILS) 81 % (16-70)
[2018-01-17] MEDS: RESP: COLISTIN 150 MG VIAL NEB SCH ×2 (07:33→20:36)
[2018-01-17] MEDS: CALCIUM POLYCARBOPHIL 625 MG TAB PEG SCH ×2 (08:34→20:29)
[2018-01-17] MEDS: CHOLESTYRAMINE LIGHT 4 GM PACKAGE PEG SCH ×2 (08:34→20:29)
[2018-01-17] MEDS: METOCLOPRAMIDE HCL SYRUP 10 MG/10 ML UDC G-TUBE SCH ×3 (08:34→17:27)
[2018-01-17] MEDS: CHOLECALCIFEROL (VIT D3) 5000 UNIT CAP PEG SCH (08:35)
[2018-01-17] MEDS: CALCIUM/VITAMIN D 250 MG/125 U TAB PEG SCH ×3 (08:35→17:28)
[2018-01-17] MEDS: FUROSEMIDE 40 MG/4 ML VIAL IV PUSH SCH ×2 (08:35→17:27)
[2018-01-17] MEDS: LINEZOLID 600 MG TAB PO SCH ×2 (08:35→20:29)
[2018-01-17] MEDS: LACTOBACILLUS ACIDOPHILUS TAB PEG SCH ×3 (08:35→17:27)
[2018-01-17] MEDS: LANSOPRAZOLE SOLUTAB 30 MG TAB NG SCH (08:35)
--- NOTE | 2018-01-17 10:03 | HHI.NPPN ---
Subjective Additional Remarks Intubated with trach, no signs of distress Objective Data Data Vital Signs Date Time Temp Pulse Resp B/P (MAP) Pulse Ox O2 Delivery O2 Flow Rate FiO2 01/17/18 07:33 97 40 01/17/18 06:00 74 01/17/18 04:24 95 40 01/17/18 04:00 98.3 76 16 131/60 (83) 96 01/17/18 04:00 40 01/17/18 04:00 76 01/17/18 02:00 80 01/17/18 01:15 98 40 01/17/18 00:00 60 01/17/18 00:00 72 01/17/18 00:00 99.1 72 16 129/60 (83) 96 01/16/18 22:11 98 45 01/16/18 22:00 83 01/16/18 20:00 97.9 86 20 149/68 (95) 97 01/16/18 20:00 60 01/16/18 20:00 86 01/16/18 19:24 97 45 01/16/18 16:00 98.4 01/16/18 16:00 100 01/16/18 15:40 100 100 01/16/18 15:00 35 01/16/18 15:00 45 16 160/50 (86) 96 01/16/18 14:54 96 45 01/16/18 14:00 100.0 39 26 116/55 (75) 97 01/16/18 13:00 89 24 153/73 (99) 92 01/16/18 12:03 97 50 01/16/18 12:00 100.2 34 26 106/63 (77) 97 01/16/18 12:00 60 01/16/18 11:00 50 24 112/54 (73) 95 01/16/18 10:00 40 22 93/50 (64) 94 -: 01/17/18 0458 01/17/18 0458 Physical Exam General Appearance: No Acute Distress Neck Neck Exam: Neck Supple Pulmonary Resp Exam: Diminished Breath Sounds Cardiology CV Exam: Regular, Normal Sinus Rhythm Gastrointestinal/Abdomen GI Exam: Soft, Non-Tender, Bowel Sounds Present Genitourinary Exam: Clear Urine Integumentary Skin Exam: Dry, Intact Extremeties Extremities Exam: Trace Edema Neurologic Neuro Exam: Sedated Assessment/Plan Problem List: (1) Acute kidney failure ICD Codes: N17.9 - Acute kidney failure, unspecified Plan: Normal renal function at baseline Renal failure has developed over past several days. Etiology may be due to hypotension from the , may have suffered hypoperfusion injury, possibly ATN Also she is developing sepsis, may have renal injury as a result Renal US showing mild right hydronephrosis, the significance of which is not known. Consider CT abd/pelvis if no improvement in upcoming days On lasix 40mg IV BID with good response, on albumin as well. Continue lasix for now, continue to monitor creatinine. 3.7L UOP / 24 hours Initial hyperkalemia resolved. Repeat labs Monitor urine output. Avoid nephrotoxic agents. (2) Hyperkalemia ICD Codes: E87.5 - Hyperkalemia Plan: Due to renal failure and metabolic acidosis. continue diuretics tube feed changed to Nepro potassium stable today. (3) HCAP (healthcare-associated pneumonia) ICD Codes: J18.9 - Pneumonia, unspecified organism Status: Resolved Plan: Early sepsis. To be transferred to [facility] [place] ID following, antibiotics include cefepime, zyvoxx. (4) UTI (urinary tract infection) ICD Codes: N39.0 - Urinary tract infection, site not specified Status: Acute Plan: ID following, managing antibiotics On PO difulcan (5) Chronic respiratory failure ICD Codes: J96.10 - Chronic respiratory failure, unspecified whether with hypoxia or hypercapnia Status: Chronic Plan: Unsuccessful vent weening Now with pneumonia Problem Qualifiers (1) UTI (urinary tract infection): Qualified Codes: N39.0 - Urinary tract infection, site not specified (2) Chronic respiratory failure: Qualified Codes: J96.11 - Chronic respiratory failure with hypoxia Arnie Menjivar MD January 17, 2018 10:03
[2018-01-17] MEDS: INSULIN DETEMIR 100 UNITS/ML VIAL SQ SCH ×3 (12:00→23:22)
[2018-01-17] MEDS: FLUCONAZOLE 100 MG TAB PO SCH (15:36)
--- NOTE | 2018-01-17 16:46 | HHI.PR ---
Subjective Remarks Discussed with nurse Mr. 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 Objective Vital Signs Date Time Temp Pulse Resp B/P (MAP) Pulse Ox O2 Delivery O2 Flow Rate FiO2 01/17/18 16:00 70 01/17/18 15:58 97 40 01/17/18 14:00 73 01/17/18 13:18 97 40 01/17/18 12:00 63 01/17/18 12:00 98.2 63 16 118/58 (78) 96 01/17/18 12:00 40 01/17/18 10:07 96 40 01/17/18 10:00 75 01/17/18 08:00 40 01/17/18 08:00 74 01/17/18 08:00 98.6 70 16 126/59 (81) 97 01/17/18 07:33 97 40 01/17/18 06:00 74 01/17/18 04:24 95 40 01/17/18 04:00 98.3 76 16 131/60 (83) 96 01/17/18 04:00 40 01/17/18 04:00 76 01/17/18 02:00 80 01/17/18 01:15 98 40 01/17/18 00:00 60 01/17/18 00:00 72 01/17/18 00:00 99.1 72 16 129/60 (83) 96 01/16/18 22:11 98 45 01/16/18 22:00 83 01/16/18 20:00 97.9 86 20 149/68 (95) 97 01/16/18 20:00 60 01/16/18 20:00 86 01/16/18 19:24 97 45 I/O 01/16/18 01/16/18 01/16/18 01/17/18 01/17/18 5/19/18 07:00 15:00 23:00 07:00 15:00 23:00 Intake Total 1640 ml 470 ml 595 ml 645 ml Output Total 550 ml 200 ml 900 ml 2625 ml Balance 1090 ml 270 ml -305 ml -1980 ml IV Total 1100 ml 370 ml 350 ml Tube Feeding 40 ml 0 ml 345 ml 295 ml Other 500 ml 100 ml 250 ml Output Urine Total 550 ml 200 ml 900 ml 2625 ml # Bowel Movements 0 0 1 1 Result Diagram: 01/17/18 0458 01/17/18 0458 Imaging Last Impressions Renal Ultrasound 01/16/18 0000 Signed Impressions: Service Date/Time: Tuesday, January 16, 2018 12:01 - CONCLUSION: 1. Mild left- sided hydronephrosis. 2. Right kidney appears unremarkable 3. Nonvisualization of the bladder. Benja Ramsey MD Chest X-Ray 01/16/18 0000 Signed Impressions: Service Date/Time: Tuesday, January 16, 2018 07:52 - CONCLUSION: 1. Diffuse bilateral pulmonary infiltrates and bilateral pleural effusions, unchanged. Findings could represent congestive heart failure is suggested in the clinical history. 2. Stable position of tracheostomy tube. Plain film findings characteristic of a chronic right-sided rotator cuff injury. Ananda Oneill MD Abdomen X-Ray 01/14/18 0000 Signed Impressions: Service Date/Time: Sunday, January 14, 2018 15:26 - CONCLUSION: 1. Air distention of the gastric lumen and small bowel loops with some air identified in the colon. Possible hypodynamic ileus. 2. Degenerative fibroid Ananda Oneill MD Upper Extremity Ultrasound 11/04/17 0000 Signed Impressions: Service Date/Time: Saturday, November 04, 2017 09:57 - CONCLUSION: No thrombus observed. Subcutaneous edema noted. Deangelo Wren Jr., MD CT Angiography 11/01/17 0000 Signed Impressions: Service Date/Time: Wednesday, November 01, 2017 16:47 - CONCLUSION: No evidence for pulmonary embolism. Please see above. Choco Mustafa MD Thoracentesis 08/05/17 1535 Signed Impressions: Service Date/Time: Saturday, August 05, 2017 16:08 - CONCLUSION: Uncomplicated CT-guided thoracentesis. Sage Adler MD Chest Ultrasound 08/02/17 0000 Signed Impressions: Service Date/Time: Tuesday, August 01, 2017 22:06 - CONCLUSION: 1. Moderate right pleural effusion, as above. Alejo De La Vega MD Hip and Pelvis X-Ray 07/09/17 0000 Signed Impressions: Service Date/Time: Sunday, July 09, 2017 14:04 - CONCLUSION: Anatomic alignment. Ricardo Middleton MD FACR Liver Ultrasound 06/19/17 0000 Signed Impressions: Service Date/Time: June 13:20 - CONCLUSION: 1. Mildly increased echotexture of the liver characteristic of hepatic steatosis. 2. Gallbladder sludge. Obdulio Sam MD Head CT 05/15/17 0000 Signed Impressions: Service Date/Time: May 19:59 - CONCLUSION: 1. 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 2. No bleed or new/acute infarct. Obdulio Simms MD Gall Bladder Ultrasound 05/08/17 0000 Signed Impressions: Service Date/Time: May 08:23 - CONCLUSION: Focally unremarkable appearance of the gallbladder Obdulio Chun MD Abdomen/Pelvis CT 05/07/17 0000 Signed Impressions: Service Date/Time: Sunday, May 07, 2017 13:23 - CONCLUSION: 1. Large left pneumothorax. 2. Bilateral lower lobe consolidation and bilateral moderate size pleural effusions. 3. Significant soft tissue thickening of the right lateral chest wall and left gluteus muscle. 4. Mild ascites. The findings were called to Dr. Carney. Deangelo Zamora MD Chest CT 04/30/17 0000 Signed Impressions: Service Date/Time: Sunday, April 30, 2017 09:20 - CONCLUSION: 1. Bilateral pulmonary infiltrates more pronounced within the lower lobes with tiny bilateral pleural effusions. Material seen filling the lower lobe bronchi bilaterally either related to purulent material or perhaps mucus plugging. Deangelo Wren Jr., MD Carotid Artery Ultrasound 04/24/17 0000 Signed Impressions: Service Date/Time: April 09:45 - CONCLUSION: 1. No hemodynamically significant carotid artery stenosis. Arnie Middleton MD Hip X-Ray 04/21/17 0000 Signed Impressions: Service Date/Time: Friday, April 21, 2017 11:36 - CONCLUSION: Fluoroscopic images during placement of intramedullary siomara left femur. Benja Ramsey MD Procedures Tracheostomy 05/15/17 PEG 05/16/17 Other Results Laboratory Tests Test 04/20/17 10:10 04/20/17 16:25 04/21/17 04:50 04/26/17 12:20 Venous Blood pH 7.25 Venous Blood Partial Pressure CO2 53 mmHg Venous Blood Partial Pressure O2 22 mmHg Venous Blood HCO3 23 mmol/L Venous Blood Oxygen Saturation 25 % Venous Blood Oxygen Content 3.7 Vol % Venous Blood Base Excess -3.6 mmol/L Nasal Screen MRSA (PCR) MRSA NOT DETECTED 25-Hydroxy Vitamin D Total 27.4 ng/ML B-Hydroxybutyrate 0.93 MMOL/L Urine Yeast (Budding) FEW Test 04/30/17 04:36 05/04/17 09:42 05/07/17 04:21 05/07/17 21:00 Serum Osmolality 345 MOSM/KG Vancomycin Level Trough 23.8 MCG/ML Blood Urea Nitrogen 36 MG/DL Creatinine 0.37 MG/DL Random Glucose 239 MG/DL Total Protein 5.1 GM/DL Albumin 1.5 GM/DL Calcium Level 7.7 MG/DL Alkaline Phosphatase 1931 U/L Aspartate Amino Transf (AST/SGOT) 217 U/L Alanine Aminotransferase (ALT/SGPT) 55 U/L Gamma Glutamyl Transpeptidase 787 U/L Total Bilirubin 1.2 MG/DL Direct Bilirubin 0.8 MG/DL Sodium Level 145 MEQ/L Potassium Level 3.9 MEQ/L Chloride Level 109 MEQ/L Carbon Dioxide Level 27.8 MEQ/L Lactate Dehydrogenase 532 U/L Amylase Level 21 U/L Lipase 48 U/L Test 05/08/17 04:44 05/08/17 21:10 05/09/17 14:04 05/11/17 04:55 Stomatocytes 1+ Total Alkaline Phosphatase 1484 U/L Alkaline Phosphatase Iso-Intestine 0 % Alkaline Phosphatase Iso-Bone 41 % Alkaline Phosphatase Iso-Liver 59 % Hepatitis A IgM Antibody NEGATIVE Hepatitis B Surface Antigen NEGATIVE Hepatitis B Core IgM Antibody NEGATIVE Hepatitis C Antibody REACTIVE Procalcitonin 0.61 ng/mL Hepatitis C RNA Genotype NOT DETECTED Hepatitis C RNA (PCR) IUs/ml LESS THAN 15 IU/mL Hepatitis C RNA (PCR) log IUs/ml LESS THAN 1.18 Blood Urea Nitrogen 29 MG/DL Creatinine 0.37 MG/DL Random Glucose 200 MG/DL Total Protein 3.1 GM/DL Albumin 0.7 GM/DL Calcium Level 6.6 MG/DL Alkaline Phosphatase 549 U/L Aspartate Amino Transf (AST/SGOT) 30 U/L Alanine Aminotransferase (ALT/SGPT) 14 U/L Total Bilirubin 0.6 MG/DL Direct Bilirubin 0.2 MG/DL Sodium Level 145 MEQ/L Potassium Level 3.7 MEQ/L Chloride Level 106 MEQ/L Carbon Dioxide Level 35.5 MEQ/L Indirect Bilirubin 0.4 MG/DL Test 05/17/17 06:25 07/11/17 03:58 07/20/17 09:32 09/09/17 05:30 Protein Corrected Calcium 8.4 MG/DL Prealbumin 20 MG/DL Urine Amorphous Sediment OCC Urine Mucus FEW /lpf Test 09/30/17 08:08 10/17/17 18:04 10/21/17 09:15 10/24/17 14:41 Toxic Vacuolation PRESENT Promyelocytes 2 % Nucleated Red Blood Cells 1 /100 WBC Castañeda-T[place] Bodies PRESENT Dohle Bodies PRESENT Test 10/28/17 07:27 10/31/17 22:20 11/16/17 09:47 12/05/17 06:58 Polychromasia 2.0 % D-Dimer Quantitative (PE/DVT) 1.94 MG/L FEU Hemoglobin A1c 5.3 % Free Thyroxine 0.79 NG/DL Thyroid Stimulating Hormone 3rd Gen 5.270 uIU/ML Troponin I LESS THAN 0.02 NG/ML Test 12/05/17 07:30 12/21/17 09:16 12/21/17 15:20 12/25/17 07:36 Urine Transitional Epithelial Cells <1 /hpf Urine Hyaline Casts 2 /lpf Total Creatine Kinase 88 U/L Stool C. difficile Toxin (PCR) NEGATIVE Stl C. difficile Toxin Epiderm 027 PRESUMPTIVE NEGATIVE Atypical Lymphocytes % Basophilic Stippling FAINT Test 12/31/17 10:37 12/31/17 20:42 01/11/18 07:23 01/12/18 08:49 Blood Gas Liter Flow 10 L/M Prothrombin Time 11.4 SEC Prothromb Time International Ratio 1.1 RATIO Activated Partial Thromboplast Time 28.3 SEC Blastocytes 1 % Hematology Comments Plasma Cells 1 % Toxic Granulation 1+ Red Cell Morphology Comment NORMAL Test 01/12/18 14:30 01/14/18 09:15 01/14/18 14:30 01/16/18 08:24 M. tuberculosis Complex DNA (PCR) NOT DETECTED Basophils % 2 % Urine Color DARK-YELLOW Urine Turbidity CLOUDY Urine pH 5.0 Urine Specific [place] 1.026 Urine Protein 30 mg/dL Urine Glucose (UA) NEG mg/dL Urine Ketones 10 mg/dL Urine Occult Blood SMALL Urine Nitrite NEG Urine Bilirubin NEG Urine Urobilinogen LESS THAN 2.0 MG/DL Urine Leukocyte Esterase LARGE Urine RBC 15 /hpf Urine WBC /hpf Urine WBC Clumps FEW Urine Squamous Epithelial Cells 18 /hpf Urine Bacteria FEW /hpf Microscopic Urinalysis Comment CATH-CULTURE IND Lactic Acid Level 1.3 mmol/L B-Type Natriuretic Peptide 1362 PG/ML Test 01/16/18 23:04 01/17/18 04:58 Blood Gas Puncture Site RT RADIAL Blood Gas Patient Temperature 98.6 Blood Gas HCO3 21 mmol/L Blood Gas Base Excess -2.8 mmol/L Blood Gas Oxygen Saturation 96 % Arterial Blood pH 7.39 Arterial Blood Partial Pressure CO2 36 mmHg Arterial Blood Partial Pressure O2 109 mmHg Arterial Blood Oxygen Content 10.7 Vol % Arterial Blood Carboxyhemoglobin 1.4 % Arterial Blood Methemoglobin 1.2 % Blood Gas Hemoglobin 7.8 G/DL Oxygen Delivery Device VENTILATOR Blood Gas Ventilator Setting AC 16/500/5PEEP Blood Gas Inspired Oxygen 45 % White Blood Count 13.5 TH/MM3 Red Blood Count 2.35 MIL/MM3 Hemoglobin 7.4 GM/DL Hematocrit 22.2 % Mean Corpuscular Volume 94.7 FL Mean Corpuscular Hemoglobin 31.3 PG Mean Corpuscular Hemoglobin Concent 33.1 % Red Cell Distribution Width 16.2 % Platelet Count 364 TH/MM3 Mean Platelet Volume 9.1 FL Neutrophils (%) (Auto) 79.5 % Lymphocytes (%) (Auto) 8.8 % Monocytes (%) (Auto) 6.0 % Eosinophils (%) (Auto) 4.6 % Basophils (%) (Auto) 1.1 % Neutrophils # (Auto) 10.7 TH/MM3 Lymphocytes # (Auto) 1.2 TH/MM3 Monocytes # (Auto) 0.8 TH/MM3 Eosinophils # (Auto) 0.6 TH/MM3 Basophils # (Auto) 0.1 TH/MM3 CBC Comment AUTO DIFF Differential Total Cells Counted 100 Neutrophils % (Manual) 81 % Band Neutrophils % 2 % Lymphocytes % 8 % Monocytes % 4 % Eosinophils % 2 % Neutrophils # (Manual) 11.6 TH/MM3 Metamyelocytes 1 % Myelocytes 2 % Differential Comment FINAL DIFF MANUAL Platelet Estimate NORMAL Platelet Morphology Comment NORMAL Blood Urea Nitrogen 66 MG/DL Creatinine 1.57 MG/DL Random Glucose 130 MG/DL Total Protein 6.2 GM/DL Albumin 2.0 GM/DL Calcium Level 9.1 MG/DL Phosphorus Level 4.1 MG/DL Magnesium Level 2.2 MG/DL Alkaline Phosphatase 317 U/L Aspartate Amino Transf (AST/SGOT) 21 U/L Alanine Aminotransferase (ALT/SGPT) 23 U/L Total Bilirubin 0.3 MG/DL Sodium Level 137 MEQ/L Potassium Level 4.1 MEQ/L Chloride Level 103 MEQ/L Carbon Dioxide Level 21.1 MEQ/L Anion Gap 13 MEQ/L Estimat Glomerular Filtration Rate 32 ML/MIN Objective Remarks GENERAL:Lethargic do not follow commands. SKIN: Warm and dry. HEAD: Normocephalic. EYES: No scleral icterus. No injection or drainage. NECK: Supple, trachea midline. No JVD or lymphadenopathy. T piece in place, no redness over trach insertion site. CARDIOVASCULAR: Regular rate and rhythm without murmurs, gallops, or rubs. RESPIRATORY: Decreased breath sounds at the bases. GASTROINTESTINAL: Abdomen soft, non-tender, nondistended. MUSCULOSKELETAL: No cyanosis, or edema. BACK: Nontender without obvious deformity. No CVA tenderness. Medications and IVs Current Medications Medications (Trade) Dose Ordered Sig/Zeferino Route Start Time Stop Time Status Last Admin (Narcan Inj) 0.4 mg UNSCH PRN IV 04/20/17 17:15 (Prevacid Odt) 30 mg DAILY NG 05/08/17 09:00 01/17/18 08:35 (Pill Splitter) 1 ea UNSCH PRN OTHER 09/05/17 11:00 (Apresoline) 10 mg Q8HR PEG 09/24/17 14:00 01/17/18 15:36 (Norvasc) 10 mg DAILY PEG 10/04/17 09:00 Future Hold 01/15/18 07:46 (Oscal-D 250-125) 250 mg TID PEG 10/03/17 13:00 01/17/18 12:03 (Vitamin D3) 5,000 units DAILY PEG 10/04/17 09:00 01/17/18 08:35 (Albuterol Neb) 2.5 mg Q2HR NEB PRN NEB 10/03/17 21:45 01/15/18 19:20 (Tylenol 650 Mg/ 20 ml Liq) 650 mg Q6H PRN PEG 10/26/17 06:45 01/13/18 00:03 (D50w (Vial) Inj) 50 ml UNSCH PRN IV PUSH 11/04/17 12:30 01/03/18 14:03 (Glucagon Inj) 1 mg UNSCH PRN OTHER 11/04/17 12:30 (NovoLIN R SUPPLEMENTAL SCALE) 1 Q6H SQ 11/04/17 12:30 01/17/18 12:05 (Prinivil) 5 mg DAILY PEG 11/23/17 09:00 Future Hold 01/15/18 07:46 (Zofran Inj) 4 mg Q6HR PRN IV PUSH 12/08/17 05:00 01/17/18 00:24 (Tears Naturale Opth Soln) 1 drop Q8H PRN EACH EYE 12/19/17 19:30 01/10/18 09:11 (Questran Light Pkt) 4 gm BID PEG 12/25/17 09:00 01/17/18 08:34 (Levemir Inj) 7 units Q12H SQ 01/04/18 00:00 01/17/18 12:00 (Coly-Mycin M Neb) 75 mg BID NEB NEB 01/07/18 12:00 01/17/18 07:33 (Lactinex) 1 tab TID PEG 01/10/18 13:00 01/17/18 12:03 (Fiber Con) 625 mg Q12HR PEG 01/10/18 21:00 01/17/18 08:34 (Lomotil 2.5-0.025 Mg Liq) 5 ml Q6H PRN PEG 01/10/18 12:15 (Roxicodone Intensol Liq) 5 mg Q6H PRN PEG 01/10/18 12:15 01/15/18 20:03 (Neurontin) 100 mg TID PRN PO 01/10/18 12:30 01/11/18 09:51 (Lasix Inj) 40 mg BID@,18 IV PUSH 01/13/18 18:00 01/17/18 08:35 (Diflucan) 100 mg Q24H PO 01/14/18 14:00 01/17/18 15:36 (Reglan Liq) 10 mg TID G-TUBE 01/15/18 18:00 01/17/18 12:03 (Free Water) 200 ml Q6HR G-TUBE 01/15/18 18:00 01/17/18 12:00 Albumin Human 250 ml @ 250 mls/hr Q12H IV 01/16/18 11:00 01/17/18 12:05 Cefepime HCl 2000 mg/Sodium Chloride 100 ml @ 200 mls/hr Q12H IV 01/16/18 14:00 01/22/18 11:59 01/17/18 15:37 (Zyvox) 600 mg Q12HR PO 01/16/18 12:45 01/17/18 08:35 A/P Assessment and Plan (1) Acute ischemic left middle cerebral artery (MCA) stroke ICD Code: I63.512 - Cerebral infarction due to unspecified occlusion or stenosis of left middle cerebral artery Status: Acute (2) Acute respiratory failure ICD Code: J96.00 - Acute respiratory failure, unspecified whether with hypoxia or hypercapnia Status: Resolved (3) Right hemiplegia ICD Code: G81.91 - Hemiplegia, unspecified affecting right dominant side Status: Acute (4) Sacral decubitus ulcer ICD Code: L89.159 - Pressure ulcer of sacral region, unspecified stage Status: Chronic (5) HCAP (healthcare-associated pneumonia) ICD Code: J18.9 - Pneumonia, unspecified organism Status: Resolved (6) 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 She underwent ORIF on 04/21/17 and on 04/24 a stroke alert was called as she was found to have right hemiparesis with left gaze. She has a poor prognosis based on her lack of overall recovery over the last 6+ months. Pulmonary edema -resolved chest x-ray done 11/13/2017, evidence of pulmonary edema, continue Lasix, monitor BMP every few weeks. 12/03 Chest x-ray on shows bilateral hazy airspace disease overall improved from November 13. Cardiomegaly. Left MCA stroke 5.5 mm of [id number] subfalcine herniation, diagnosed 04/24. Was not a candidate for thrombolysis at that time. Increasing edema seen on repeat CT 04/28 with a reduction in midline shift on another repeat on 04/30 Neurologic condition remained poor and she underwent trach 05/15/17 and PEG Persistent right-sided hemiparesis. Previously seen by neurology, signed off Previously seen by neurosurgery, signed off Continue daily ASA at this time patient not moving any extremity. Hypertension / CHF Order chest x-ray on 01/16/18 secondary to worsening leukocytosis. Chest x- ray reviewed by me shows diffuse bilateral pulmonary infiltrates and bilateral pleural effusions. Stable position of tracheostomy tube. Nephrology following and giving IV Lasix 40 mg BID. Albumin. Chronic Tracheostomy /respiratory failure 10/22/2017 Pulmonary toilet, trach care Duo nebs as needed Pulm following, appreciate assistance. Currently on mechical ventilation - assist control with an fio2 of 50% Large left pneumothorax Resolved Chest tube placed 05/07, discontinued 05/12/17 Hepatitis C LFTs normalized Negative genotype/viral load Diabetes mellitus SSI Novolin R High-dose scale FEN PEG tube feeding with Glucerna 1.5 goal 45 cc/hr, per nutrition recommendations Anal Fissure continue wound care Bradycardia Improved. Upon review of records the patient was recently evaluated by radiology due to bradycardia on 11/19/17. At the time cardiology recommended observation and avoidance of AV du blocking agents. EKG obtained on 12/02 shows sinus rhythm with moderate T-wave abnormalities on anterolateral leads. 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 Acute kidney injury Nephrology following. Hyperkalemia Improved. DVT prophylaxis Heparin Discharge Planning Very poor prognosis. Appreciate palliative care efforts. Calvin Gerardo MD January 17, 2018 16:46
--- NOTE | 2018-01-17 20:01 | HHI.PR ---
Subjective Remarks ON THE VENTILATOR NO DISTRESS Objective Vital Signs Date Time Temp Pulse Resp B/P (MAP) Pulse Ox O2 Delivery O2 Flow Rate FiO2 01/17/18 19:30 97 40 01/17/18 18:00 70 01/17/18 16:00 70 01/17/18 16:00 98.4 70 16 135/64 (87) 97 01/17/18 16:00 40 01/17/18 15:58 97 40 01/17/18 14:00 73 01/17/18 13:18 97 40 01/17/18 12:00 63 01/17/18 12:00 98.2 63 16 118/58 (78) 96 01/17/18 12:00 40 01/17/18 10:07 96 40 01/17/18 10:00 75 01/17/18 08:00 40 01/17/18 08:00 74 01/17/18 08:00 98.6 70 16 126/59 (81) 97 01/17/18 07:33 97 40 01/17/18 06:00 74 01/17/18 04:24 95 40 01/17/18 04:00 98.3 76 16 131/60 (83) 96 01/17/18 04:00 40 01/17/18 04:00 76 01/17/18 02:00 80 01/17/18 01:15 98 40 01/17/18 00:00 60 01/17/18 00:00 72 01/17/18 00:00 99.1 72 16 129/60 (83) 96 01/16/18 22:11 98 45 01/16/18 22:00 83 I/O 01/16/18 01/16/18 01/16/18 01/17/18 01/17/18 01/17/18 07:00 15:00 23:00 07:00 15:00 23:00 Intake Total 1640 ml 470 ml 595 ml 645 ml 370 ml Output Total 550 ml 200 ml 900 ml 2625 ml 2000 ml Balance 1090 ml 270 ml -305 ml -1980 ml -1630 ml IV Total 1100 ml 370 ml 350 ml Tube Feeding 40 ml 0 ml 345 ml 295 ml 370 ml Other 500 ml 100 ml 250 ml Output Urine Total 550 ml 200 ml 900 ml 2625 ml 2000 ml # Bowel Movements 0 0 1 1 1 Result Diagram: 01/17/18 0458 01/17/18 0458 Procedures Tracheostomy 05/15/17 PEG 05/16/17 Objective Remarks GENERAL: SKIN: Warm and dry. HEAD: Atraumatic. Normocephalic. EYES: Pupils equal and round. No scleral icterus. No injection or drainage. ENT: No nasal bleeding or discharge. Mucous membranes pink and moist. NECK: Trachea midline. No JVD. CARDIOVASCULAR: Regular rate and rhythm. RESPIRATORY: No accessory muscle use. Clear to auscultation. Breath sounds equal bilaterally. GASTROINTESTINAL: Abdomen soft, non-tender, nondistended. Hepatic and splenic margins not palpable. MUSCULOSKELETAL: Extremities without clubbing, cyanosis, or edema. No obvious deformities. NEUROLOGICAL: Awake and alert. No obvious cranial nerve deficits. Motor grossly within normal limits. Five out of 5 muscle strength in the arms and legs. Normal speech. PSYCHIATRIC: Appropriate mood and affect; insight and judgment normal. Assessment and Plan Assessment and Plan IMP: RESP. FAILURE PNA S/P TRACH PLAN VENT SUPPORT NEEDED ANTIBX F/U CXRAY Marck Acharya MD January 17, 2018 20:01
[2018-01-18] VITALS (18 sets, daily range): BP systolic 128–149; BP diastolic 60–68; PULSE 62–80; RESP 16–23; TEMP 98–99.3; O2SAT 94–100
[2018-01-18] MEDS: CEFEPIME INJ 2,000 MG in SODIUM CHLORIDE 0.9% INJ 100 ML IV SCH ×2 (00:59→14:48)
[2018-01-18] MEDS: FREE WATER G-TUBE SCH ×3 (00:59→17:55)
[2018-01-18] MEDS: hydrALAZINE HCL 10 MG TAB PEG SCH ×3 (05:13→21:56)
[2018-01-18] MEDS: INSULIN NovoLIN REGULAR SUPPLEMENTAL SCALE SQ SCH ×3 (05:13→17:54)
[2018-01-18] MEDS: RESP: COLISTIN 150 MG VIAL NEB SCH ×2 (07:19→19:22)
[2018-01-18] MEDS: LANSOPRAZOLE SOLUTAB 30 MG TAB NG SCH (08:02)
[2018-01-18] MEDS: LACTOBACILLUS ACIDOPHILUS TAB PEG SCH ×3 (08:02→17:55)
[2018-01-18] MEDS: CHOLECALCIFEROL (VIT D3) 5000 UNIT CAP PEG SCH (08:02)
[2018-01-18] MEDS: METOCLOPRAMIDE HCL SYRUP 10 MG/10 ML UDC G-TUBE SCH ×3 (08:02→17:53)
[2018-01-18] MEDS: CALCIUM POLYCARBOPHIL 625 MG TAB PEG SCH ×2 (08:02→21:56)
[2018-01-18] MEDS: CALCIUM/VITAMIN D 250 MG/125 U TAB PEG SCH ×3 (08:02→17:55)
[2018-01-18] MEDS: LINEZOLID 600 MG TAB PO SCH ×2 (08:02→21:00)
[2018-01-18] MEDS: FUROSEMIDE 40 MG/4 ML VIAL IV PUSH SCH ×2 (08:03→17:54)
[2018-01-18] MEDS: CHOLESTYRAMINE LIGHT 4 GM PACKAGE PEG SCH ×2 (08:03→21:56)
--- NOTE | 2018-01-18 10:24 | HHI.NPPN ---
Subjective Additional Remarks Intubated with trach, no signs of distress Objective Data Data Vital Signs Date Time Temp Pulse Resp B/P (MAP) Pulse Ox O2 Delivery O2 Flow Rate FiO2 01/18/18 10:12 96 40 01/18/18 08:00 98.3 76 18 140/65 (90) 96 01/18/18 08:00 40 01/18/18 08:00 76 01/18/18 07:19 95 40 01/18/18 06:00 79 01/18/18 04:02 95 40 01/18/18 04:00 40 01/18/18 04:00 75 01/18/18 04:00 98.0 75 16 148/67 (94) 96 01/18/18 02:00 79 01/18/18 00:00 40 01/18/18 00:00 75 01/18/18 00:00 99.3 75 23 135/63 (87) 97 01/17/18 22:07 96 40 01/17/18 22:00 68 01/17/18 20:00 99.0 70 16 141/65 (90) 95 01/17/18 20:00 70 01/17/18 20:00 40 01/17/18 19:30 97 40 01/17/18 18:00 70 01/17/18 16:00 70 01/17/18 16:00 98.4 70 16 135/64 (87) 97 01/17/18 16:00 40 01/17/18 15:58 97 40 01/17/18 14:00 73 01/17/18 13:18 97 40 01/17/18 12:00 63 01/17/18 12:00 98.2 63 16 118/58 (78) 96 01/17/18 12:00 40 -: 01/17/18 0458 01/17/18 0458 Physical Exam General Appearance: No Acute Distress Neck Neck Exam: Neck Supple Pulmonary Resp Exam: Diminished Breath Sounds Cardiology CV Exam: Regular, Normal Sinus Rhythm Gastrointestinal/Abdomen GI Exam: Soft, Non-Tender, Bowel Sounds Present Genitourinary Exam: Clear Urine Integumentary Skin Exam: Dry, Intact Extremeties Extremities Exam: Trace Edema Neurologic Neuro Exam: Sedated Assessment/Plan Problem List: (1) Acute kidney failure ICD Codes: N17.9 - Acute kidney failure, unspecified Plan: Normal renal function at baseline Renal failure has developed over past several days. Etiology may be due to hypotension from the 15, may have suffered hypoperfusion injury, possibly ATN Also she is developing sepsis, may have renal injury as a result Renal US showing mild right hydronephrosis, the significance of which is not known. Consider CT abd/pelvis if no improvement in upcoming days On lasix 40mg IV BID with good response, on albumin as well. Continue lasix for now, continue to monitor creatinine. Creatinine continues to improve: 1.6 -> 1.5 3.7L UOP / 24 hours Initial hyperkalemia resolved. Repeat labs Monitor urine output. Avoid nephrotoxic agents. (2) Hyperkalemia ICD Codes: E87.5 - Hyperkalemia Plan: Due to renal failure and metabolic acidosis. continue diuretics tube feed changed to Nepro potassium stable today. (3) HCAP (healthcare-associated pneumonia) ICD Codes: J18.9 - Pneumonia, unspecified organism Status: Resolved Plan: Early sepsis. To be transferred to C ID following, antibiotics include cefepime, zyvoxx. (4) UTI (urinary tract infection) ICD Codes: N39.0 - Urinary tract infection, site not specified Status: Acute Plan: ID following, managing antibiotics On PO difulcan (5) Chronic respiratory failure ICD Codes: J96.10 - Chronic respiratory failure, unspecified whether with hypoxia or hypercapnia Status: Chronic Plan: Unsuccessful vent weening Now with pneumonia Problem Qualifiers (1) UTI (urinary tract infection): Qualified Codes: N39.0 - Urinary tract infection, site not specified (2) Chronic respiratory failure: Qualified Codes: J96.11 - Chronic respiratory failure with hypoxia Arnie Menjivar MD January 18, 2018 10:24
[2018-01-18] MEDS: ALBUMIN 5% INJ 250 ML IV SCH ×2 (10:50→21:56)
[2018-01-18] MEDS: INSULIN DETEMIR 100 UNITS/ML VIAL SQ SCH ×2 (12:20→23:58)
[2018-01-18] MEDS: FLUCONAZOLE 100 MG TAB PO SCH (14:47)
--- NOTE | 2018-01-18 17:36 | HHI.PR ---
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 Seen in her bedroom, discussed with nurse Mr. Barajas today, continue Obtunded. not able to talk. Objective Vital Signs Date Time Temp Pulse Resp B/P (MAP) Pulse Ox O2 Delivery O2 Flow Rate FiO2 01/18/18 16:00 40 01/18/18 16:00 78 01/18/18 16:00 98.8 68 18 128/60 (82) 96 01/18/18 15:58 94 40 01/18/18 14:00 72 01/18/18 13:13 96 40 01/18/18 12:00 99.0 80 16 143/65 (91) 96 01/18/18 12:00 40 01/18/18 12:00 80 01/18/18 10:12 96 40 01/18/18 10:00 62 01/18/18 08:00 98.3 76 18 140/65 (90) 96 01/18/18 08:00 40 01/18/18 08:00 76 01/18/18 07:19 95 40 01/18/18 06:00 79 01/18/18 04:02 95 40 01/18/18 04:00 40 01/18/18 04:00 75 01/18/18 04:00 98.0 75 16 148/67 (94) 96 01/18/18 02:00 79 01/18/18 00:00 40 01/18/18 00:00 75 01/18/18 00:00 99.3 75 23 135/63 (87) 97 01/17/18 22:07 96 40 01/17/18 22:00 68 01/17/18 20:00 99.0 70 16 141/65 (90) 95 01/17/18 20:00 70 01/17/18 20:00 40 01/17/18 19:30 97 40 01/17/18 18:00 70 I/O 01/17/18 01/17/18 01/17/18 01/18/18 01/18/18 01/18/18 07:00 15:00 23:00 07:00 15:00 23:00 Intake Total 645 ml 370 ml 806 ml Output Total 2625 ml 2000 ml 1725 ml Balance -1980 ml -1630 ml -919 ml IV Total 350 ml 350 ml Tube Feeding 295 ml 370 ml 456 ml Output Urine Total 2625 ml 2000 ml 1725 ml # Bowel Movements 1 1 1 Result Diagram: 01/17/18 0458 01/17/18 0458 Imaging Last Impressions Renal Ultrasound 01/16/18 0000 Signed Impressions: Service Date/Time: Tuesday, January 16, 2018 12:01 - CONCLUSION: 1. Mild left- sided hydronephrosis. 2. Right kidney appears unremarkable 3. Nonvisualization of the bladder. Benja Ramsey MD Chest X-Ray 01/16/18 0000 Signed Impressions: Service Date/Time: Tuesday, January 16, 2018 07:52 - CONCLUSION: 1. Diffuse bilateral pulmonary infiltrates and bilateral pleural effusions, unchanged. Findings could represent congestive heart failure is suggested in the clinical history. 2. Stable position of tracheostomy tube. Plain film findings characteristic of a chronic right-sided rotator cuff injury. Ananda Oneill MD Abdomen X-Ray 01/14/18 0000 Signed Impressions: Service Date/Time: Sunday, January 14, 2018 15:26 - CONCLUSION: 1. Air distention of the gastric lumen and small bowel loops with some air identified in the colon. Possible hypodynamic ileus. 2. Degenerative fibroid Ananda Oneill MD Upper Extremity Ultrasound 11/04/17 0000 Signed Impressions: Service Date/Time: Saturday, November 04, 2017 09:57 - CONCLUSION: No thrombus observed. Subcutaneous edema noted. Deangelo Wren Jr., MD CT Angiography 11/01/17 0000 Signed Impressions: Service Date/Time: Wednesday, November 01, 2017 16:47 - CONCLUSION: No evidence for pulmonary embolism. Please see above. Choco Mustafa MD Thoracentesis 08/05/17 1535 Signed Impressions: Service Date/Time: Saturday, August 05, 2017 16:08 - CONCLUSION: Uncomplicated CT-guided thoracentesis. Sage Adler MD Chest Ultrasound 08/02/17 0000 Signed Impressions: Service Date/Time: Tuesday, August 01, 2017 22:06 - CONCLUSION: 1. Moderate right pleural effusion, as above. Aljeo De La Vega MD Hip and Pelvis X-Ray 07/09/17 0000 Signed Impressions: Service Date/Time: Sunday, July 09, 2017 14:04 - CONCLUSION: Anatomic alignment. Ricardo Middleton MD FACR Liver Ultrasound 06/19/17 0000 Signed Impressions: Service Date/Time: June 13:20 - CONCLUSION: 1. Mildly increased echotexture of the liver characteristic of hepatic steatosis. 2. Gallbladder sludge. Obdulio Sam MD Head CT 05/15/17 0000 Signed Impressions: Service Date/Time: May 19:59 - CONCLUSION: 1. 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 2. No bleed or new/acute infarct. Obdulio Simms MD Gall Bladder Ultrasound 05/08/17 0000 Signed Impressions: Service Date/Time: May 08:23 - CONCLUSION: Focally unremarkable appearance of the gallbladder Obdulio Chun MD Abdomen/Pelvis CT 05/07/17 0000 Signed Impressions: Service Date/Time: Sunday, May 07, 2017 13:23 - CONCLUSION: 1. Large left pneumothorax. 2. Bilateral lower lobe consolidation and bilateral moderate size pleural effusions. 3. Significant soft tissue thickening of the right lateral chest wall and left gluteus muscle. 4. Mild ascites. The findings were called to Dr. Carney. Deangelo Zaomra MD Chest CT 04/30/17 0000 Signed Impressions: Service Date/Time: Sunday, April 30, 2017 09:20 - CONCLUSION: 1. Bilateral pulmonary infiltrates more pronounced within the lower lobes with tiny bilateral pleural effusions. Material seen filling the lower lobe bronchi bilaterally either related to purulent material or perhaps mucus plugging. Deangelo Wren Jr., MD Carotid Artery Ultrasound 04/24/17 0000 Signed Impressions: Service Date/Time: April 09:45 - CONCLUSION: 1. No hemodynamically significant carotid artery stenosis. Arnie Middleton MD Hip X-Ray 04/21/17 0000 Signed Impressions: Service Date/Time: Friday, April 21, 2017 11:36 - CONCLUSION: Fluoroscopic images during placement of intramedullary siomara left femur. Benja Ramsey MD Procedures Tracheostomy 05/15/17 PEG 05/16/17 Other Results Laboratory Tests Test 04/20/17 10:10 04/20/17 16:25 04/21/17 04:50 04/26/17 12:20 Venous Blood pH 7.25 Venous Blood Partial Pressure CO2 53 mmHg Venous Blood Partial Pressure O2 22 mmHg Venous Blood HCO3 23 mmol/L Venous Blood Oxygen Saturation 25 % Venous Blood Oxygen Content 3.7 Vol % Venous Blood Base Excess -3.6 mmol/L Nasal Screen MRSA (PCR) MRSA NOT DETECTED 25-Hydroxy Vitamin D Total 27.4 ng/ML B-Hydroxybutyrate 0.93 MMOL/L Urine Yeast (Budding) FEW Test 04/30/17 04:36 05/04/17 09:42 05/07/17 04:21 05/07/17 21:00 Serum Osmolality 345 MOSM/KG Vancomycin Level Trough 23.8 MCG/ML Blood Urea Nitrogen 36 MG/DL Creatinine 0.37 MG/DL Random Glucose 239 MG/DL Total Protein 5.1 GM/DL Albumin 1.5 GM/DL Calcium Level 7.7 MG/DL Alkaline Phosphatase 1931 U/L Aspartate Amino Transf (AST/SGOT) 217 U/L Alanine Aminotransferase (ALT/SGPT) 55 U/L Gamma Glutamyl Transpeptidase 787 U/L Total Bilirubin 1.2 MG/DL Direct Bilirubin 0.8 MG/DL Sodium Level 145 MEQ/L Potassium Level 3.9 MEQ/L Chloride Level 109 MEQ/L Carbon Dioxide Level 27.8 MEQ/L Lactate Dehydrogenase 532 U/L Amylase Level 21 U/L Lipase 48 U/L Test 05/08/17 04:44 05/08/17 21:10 05/09/17 14:04 05/11/17 04:55 Stomatocytes 1+ Total Alkaline Phosphatase 1484 U/L Alkaline Phosphatase Iso-Intestine 0 % Alkaline Phosphatase Iso-Bone 41 % Alkaline Phosphatase Iso-Liver 59 % Hepatitis A IgM Antibody NEGATIVE Hepatitis B Surface Antigen NEGATIVE Hepatitis B Core IgM Antibody NEGATIVE Hepatitis C Antibody REACTIVE Procalcitonin 0.61 ng/mL Hepatitis C RNA Genotype NOT DETECTED Hepatitis C RNA (PCR) IUs/ml LESS THAN 15 IU/mL Hepatitis C RNA (PCR) log IUs/ml LESS THAN 1.18 Blood Urea Nitrogen 29 MG/DL Creatinine 0.37 MG/DL Random Glucose 200 MG/DL Total Protein 3.1 GM/DL Albumin 0.7 GM/DL Calcium Level 6.6 MG/DL Alkaline Phosphatase 549 U/L Aspartate Amino Transf (AST/SGOT) 30 U/L Alanine Aminotransferase (ALT/SGPT) 14 U/L Total Bilirubin 0.6 MG/DL Direct Bilirubin 0.2 MG/DL Sodium Level 145 MEQ/L Potassium Level 3.7 MEQ/L Chloride Level 106 MEQ/L Carbon Dioxide Level 35.5 MEQ/L Indirect Bilirubin 0.4 MG/DL Test 05/17/17 06:25 07/11/17 03:58 07/20/17 09:32 09/09/17 05:30 Protein Corrected Calcium 8.4 MG/DL Prealbumin 20 MG/DL Urine Amorphous Sediment OCC Urine Mucus FEW /lpf Test 09/30/17 08:08 10/17/17 18:04 10/21/17 09:15 10/24/17 14:41 Toxic Vacuolation PRESENT Promyelocytes 2 % Nucleated Red Blood Cells 1 /100 WBC Castañeda-Sidell Bodies PRESENT Dohle Bodies PRESENT Test 10/28/17 07:27 10/31/17 22:20 11/16/17 09:47 12/05/17 06:58 Polychromasia 2.0 % D-Dimer Quantitative (PE/DVT) 1.94 MG/L FEU Hemoglobin A1c 5.3 % Free Thyroxine 0.79 NG/DL Thyroid Stimulating Hormone 3rd Gen 5.270 uIU/ML Troponin I LESS THAN 0.02 NG/ML Test 12/05/17 07:30 12/21/17 09:16 12/21/17 15:20 12/25/17 07:36 Urine Transitional Epithelial Cells <1 /hpf Urine Hyaline Casts 2 /lpf Total Creatine Kinase 88 U/L Stool C. difficile Toxin (PCR) NEGATIVE Stl C. difficile Toxin Epiderm 027 PRESUMPTIVE NEGATIVE Atypical Lymphocytes % Basophilic Stippling FAINT Test 12/31/17 10:37 12/31/17 20:42 01/11/18 07:23 01/12/18 08:49 Blood Gas Liter Flow 10 L/M Prothrombin Time 11.4 SEC Prothromb Time International Ratio 1.1 RATIO Activated Partial Thromboplast Time 28.3 SEC Blastocytes 1 % Hematology Comments Plasma Cells 1 % Toxic Granulation 1+ Red Cell Morphology Comment NORMAL Test 01/12/18 14:30 01/14/18 09:15 01/14/18 14:30 01/16/18 08:24 M. tuberculosis Complex DNA (PCR) NOT DETECTED Basophils % 2 % Urine Color DARK-YELLOW Urine Turbidity CLOUDY Urine pH 5.0 Urine Specific Malone 1.026 Urine Protein 30 mg/dL Urine Glucose (UA) NEG mg/dL Urine Ketones 10 mg/dL Urine Occult Blood SMALL Urine Nitrite NEG Urine Bilirubin NEG Urine Urobilinogen LESS THAN 2.0 MG/DL Urine Leukocyte Esterase LARGE Urine RBC 15 /hpf Urine WBC /hpf Urine WBC Clumps FEW Urine Squamous Epithelial Cells 18 /hpf Urine Bacteria FEW /hpf Microscopic Urinalysis Comment CATH-CULTURE IND Lactic Acid Level 1.3 mmol/L B-Type Natriuretic Peptide 1362 PG/ML Test 01/16/18 23:04 01/17/18 04:58 Blood Gas Puncture Site RT RADIAL Blood Gas Patient Temperature 98.6 Blood Gas HCO3 21 mmol/L Blood Gas Base Excess -2.8 mmol/L Blood Gas Oxygen Saturation 96 % Arterial Blood pH 7.39 Arterial Blood Partial Pressure CO2 36 mmHg Arterial Blood Partial Pressure O2 109 mmHg Arterial Blood Oxygen Content 10.7 Vol % Arterial Blood Carboxyhemoglobin 1.4 % Arterial Blood Methemoglobin 1.2 % Blood Gas Hemoglobin 7.8 G/DL Oxygen Delivery Device VENTILATOR Blood Gas Ventilator Setting AC 16/500/5PEEP Blood Gas Inspired Oxygen 45 % White Blood Count 13.5 TH/MM3 Red Blood Count 2.35 MIL/MM3 Hemoglobin 7.4 GM/DL Hematocrit 22.2 % Mean Corpuscular Volume 94.7 FL Mean Corpuscular Hemoglobin 31.3 PG Mean Corpuscular Hemoglobin Concent 33.1 % Red Cell Distribution Width 16.2 % Platelet Count 364 TH/MM3 Mean Platelet Volume 9.1 FL Neutrophils (%) (Auto) 79.5 % Lymphocytes (%) (Auto) 8.8 % Monocytes (%) (Auto) 6.0 % Eosinophils (%) (Auto) 4.6 % Basophils (%) (Auto) 1.1 % Neutrophils # (Auto) 10.7 TH/MM3 Lymphocytes # (Auto) 1.2 TH/MM3 Monocytes # (Auto) 0.8 TH/MM3 Eosinophils # (Auto) 0.6 TH/MM3 Basophils # (Auto) 0.1 TH/MM3 CBC Comment AUTO DIFF Differential Total Cells Counted 100 Neutrophils % (Manual) 81 % Band Neutrophils % 2 % Lymphocytes % 8 % Monocytes % 4 % Eosinophils % 2 % Neutrophils # (Manual) 11.6 TH/MM3 Metamyelocytes 1 % Myelocytes 2 % Differential Comment FINAL DIFF MANUAL Platelet Estimate NORMAL Platelet Morphology Comment NORMAL Blood Urea Nitrogen 66 MG/DL Creatinine 1.57 MG/DL Random Glucose 130 MG/DL Total Protein 6.2 GM/DL Albumin 2.0 GM/DL Calcium Level 9.1 MG/DL Phosphorus Level 4.1 MG/DL Magnesium Level 2.2 MG/DL Alkaline Phosphatase 317 U/L Aspartate Amino Transf (AST/SGOT) 21 U/L Alanine Aminotransferase (ALT/SGPT) 23 U/L Total Bilirubin 0.3 MG/DL Sodium Level 137 MEQ/L Potassium Level 4.1 MEQ/L Chloride Level 103 MEQ/L Carbon Dioxide Level 21.1 MEQ/L Anion Gap 13 MEQ/L Estimat Glomerular Filtration Rate 32 ML/MIN Objective Remarks GENERAL:Lethargic do not follow commands. SKIN: Warm and dry. HEAD: Normocephalic. EYES: No scleral icterus. No injection or drainage. NECK: Supple, trachea midline. No JVD or lymphadenopathy. T piece in place, no redness over trach insertion site. CARDIOVASCULAR: Regular rate and rhythm without murmurs, gallops, or rubs. RESPIRATORY: Decreased breath sounds at the bases. GASTROINTESTINAL: Abdomen soft, non-tender, nondistended. MUSCULOSKELETAL: No cyanosis, or edema. BACK: Nontender without obvious deformity. No CVA tenderness. Medications and IVs Current Medications Medications (Trade) Dose Ordered Sig/Zeferino Route Start Time Stop Time Status Last Admin (Narcan Inj) 0.4 mg UNSCH PRN IV 04/20/17 17:15 (Prevacid Odt) 30 mg DAILY NG 05/08/17 09:00 01/18/18 08:02 (Pill Splitter) 1 ea UNSCH PRN OTHER 09/05/17 11:00 (Apresoline) 10 mg Q8HR PEG 09/24/17 14:00 01/18/18 14:47 (Norvasc) 10 mg DAILY PEG 10/04/17 09:00 Future Hold 5/17/18 07:46 (Oscal-D 250-125) 250 mg TID PEG 10/03/17 13:00 01/18/18 12:19 (Vitamin D3) 5,000 units DAILY PEG 10/04/17 09:00 01/18/18 08:02 (Albuterol Neb) 2.5 mg Q2HR NEB PRN NEB 10/03/17 21:45 01/15/18 19:20 (Tylenol 650 Mg/ 20 ml Liq) 650 mg Q6H PRN PEG 10/26/17 06:45 01/13/18 00:03 (D50w (Vial) Inj) 50 ml UNSCH PRN IV PUSH 11/04/17 12:30 01/03/18 14:03 (Glucagon Inj) 1 mg UNSCH PRN OTHER 11/04/17 12:30 (NovoLIN R SUPPLEMENTAL SCALE) 1 Q6H SQ 11/04/17 12:30 01/18/18 12:20 (Prinivil) 5 mg DAILY PEG 11/23/17 09:00 Future Hold 01/15/18 07:46 (Zofran Inj) 4 mg Q6HR PRN IV PUSH 12/08/17 05:00 01/17/18 00:24 (Tears Naturale Opth Soln) 1 drop Q8H PRN EACH EYE 12/19/17 19:30 01/10/18 09:11 (Questran Light Pkt) 4 gm BID PEG 12/25/17 09:00 01/18/18 08:03 (Levemir Inj) 7 units Q12H SQ 01/04/18 00:00 01/18/18 12:20 (Coly-Mycin M Neb) 75 mg BID NEB NEB 01/07/18 12:00 01/18/18 07:19 (Lactinex) 1 tab TID PEG 01/10/18 13:00 01/18/18 12:19 (Fiber Con) 625 mg Q12HR PEG 01/10/18 21:00 01/18/18 08:02 (Lomotil 2.5-0.025 Mg Liq) 5 ml Q6H PRN PEG 01/10/18 12:15 (Roxicodone Intensol Liq) 5 mg Q6H PRN PEG 01/10/18 12:15 01/15/18 20:03 (Neurontin) 100 mg TID PRN PO 01/10/18 12:30 01/11/18 09:51 (Lasix Inj) 40 mg BID@,18 IV PUSH 01/13/18 18:00 01/18/18 08:03 (Diflucan) 100 mg Q24H PO 01/14/18 14:00 01/18/18 14:47 (Reglan Liq) 10 mg TID G-TUBE 01/15/18 18:00 01/18/18 12:19 (Free Water) 200 ml Q6HR G-TUBE 01/15/18 18:00 01/18/18 12:00 Albumin Human 250 ml @ 250 mls/hr Q12H IV 01/16/18 11:00 01/18/18 10:50 Cefepime HCl 2000 mg/Sodium Chloride 100 ml @ 200 mls/hr Q12H IV 01/16/18 14:00 01/22/18 11:59 01/18/18 14:48 (Zyvox) 600 mg Q12HR PO 01/16/18 12:45 01/18/18 08:02 A/P Assessment and Plan (1) Acute ischemic left middle cerebral artery (MCA) stroke ICD Code: I63.512 - Cerebral infarction due to unspecified occlusion or stenosis of left middle cerebral artery Status: Acute (2) Acute respiratory failure ICD Code: J96.00 - Acute respiratory failure, unspecified whether with hypoxia or hypercapnia Status: Resolved (3) Right hemiplegia ICD Code: G81.91 - Hemiplegia, unspecified affecting right dominant side Status: Acute (4) Sacral decubitus ulcer ICD Code: L89.159 - Pressure ulcer of sacral region, unspecified stage Status: Chronic (5) HCAP (healthcare-associated pneumonia) ICD Code: J18.9 - Pneumonia, unspecified organism Status: Resolved (6) 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 She underwent ORIF on 04/21/17 and on 04/24 a stroke alert was called as she was found to have right hemiparesis with left gaze. She has a poor prognosis based on her lack of overall recovery over the last 6+ months. Pulmonary edema -resolved chest x-ray done 11/13/2017, evidence of pulmonary edema, continue Lasix, monitor BMP every few weeks. 12/03 Chest x-ray on shows bilateral hazy airspace disease overall improved from November 13. Cardiomegaly. Left MCA stroke 5.5 mm of [id number] subfalcine herniation, diagnosed 04/24. Was not a candidate for thrombolysis at that time. Increasing edema seen on repeat CT 04/28 with a reduction in midline shift on another repeat on 04/30 Neurologic condition remained poor and she underwent trach 05/15/17 and PEG Persistent right-sided hemiparesis. Previously seen by neurology, signed off Previously seen by neurosurgery, signed off Continue daily ASA at this time patient not moving any extremity. Hypertension / CHF Order chest x-ray on 01/16/18 secondary to worsening leukocytosis. Chest x- ray reviewed by me shows diffuse bilateral pulmonary infiltrates and bilateral pleural effusions. Stable position of tracheostomy tube. Nephrology following and giving IV Lasix 40 mg BID. Albumin. Chronic Tracheostomy /respiratory failure 10/22/2017 Pulmonary toilet, trach care Duo nebs as needed Pulm following, appreciate assistance. Currently on mechical ventilation - assist control with an fio2 of 50% Large left pneumothorax Resolved Chest tube placed 05/07, discontinued 05/12/17 Hepatitis C LFTs normalized Negative genotype/viral load Diabetes mellitus SSI Novolin R High-dose scale FEN PEG tube feeding with Glucerna 1.5 goal 45 cc/hr, per nutrition recommendations Anal Fissure continue wound care Bradycardia Improved. Upon review of records the patient was recently evaluated by radiology due to bradycardia on 11/19/17. At the time cardiology recommended observation and avoidance of AV du blocking agents. EKG obtained on 12/02 shows sinus rhythm with moderate T-wave abnormalities on anterolateral leads. 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 Acute kidney injury Nephrology following. Hyperkalemia Improved. DVT prophylaxis Heparin No changes to anterior assessment. Discharge Planning Very poor prognosis. Appreciate palliative care efforts. Calvin Gerardo MD January 18, 2018 17:36
--- NOTE | 2018-01-18 21:34 | HHI.PR ---
Subjective Remarks ON THE VENTILATOR NO DISTRESS Objective Vital Signs Date Time Temp Pulse Resp B/P (MAP) Pulse Ox O2 Delivery O2 Flow Rate FiO2 01/18/18 20:10 100 100 01/18/18 19:20 96 40 01/18/18 18:00 80 01/18/18 16:00 40 01/18/18 16:00 78 01/18/18 16:00 98.8 68 18 128/60 (82) 96 01/18/18 15:58 94 40 01/18/18 14:00 72 01/18/18 13:13 96 40 01/18/18 12:00 99.0 80 16 143/65 (91) 96 01/18/18 12:00 40 01/18/18 12:00 80 01/18/18 10:12 96 40 01/18/18 10:00 62 01/18/18 08:00 98.3 76 18 140/65 (90) 96 01/18/18 08:00 40 01/18/18 08:00 76 01/18/18 07:19 95 40 01/18/18 06:00 79 01/18/18 04:02 95 40 01/18/18 04:00 40 01/18/18 04:00 75 01/18/18 04:00 98.0 75 16 148/67 (94) 96 01/18/18 02:00 79 01/18/18 00:00 40 01/18/18 00:00 75 01/18/18 00:00 99.3 75 23 135/63 (87) 97 01/17/18 22:07 96 40 01/17/18 22:00 68 I/O 01/17/18 01/17/18 01/17/18 01/18/18 01/18/18 01/18/18 07:00 15:00 23:00 07:00 15:00 23:00 Intake Total 645 ml 370 ml 806 ml 570 ml Output Total 2625 ml 2000 ml 1725 ml 1250 ml Balance -1980 ml -1630 ml -919 ml -680 ml IV Total 350 ml 350 ml Tube Feeding 295 ml 370 ml 456 ml 570 ml Output Urine Total 2625 ml 2000 ml 1725 ml 1250 ml # Bowel Movements 1 1 1 Result Diagram: 01/17/18 0458 01/17/18 0458 Procedures Tracheostomy 05/15/17 PEG 05/16/17 Objective Remarks GENERAL: SKIN: Warm and dry. HEAD: Atraumatic. Normocephalic. EYES: Pupils equal and round. No scleral icterus. No injection or drainage. ENT: No nasal bleeding or discharge. Mucous membranes pink and moist. NECK: Trachea midline. No JVD. CARDIOVASCULAR: Regular rate and rhythm. RESPIRATORY: No accessory muscle use. Clear to auscultation. Breath sounds equal bilaterally. GASTROINTESTINAL: Abdomen soft, non-tender, nondistended. Hepatic and splenic margins not palpable. MUSCULOSKELETAL: Extremities without clubbing, cyanosis, or edema. No obvious deformities. NEUROLOGICAL: Awake and alert. No obvious cranial nerve deficits. Motor grossly within normal limits. Five out of 5 muscle strength in the arms and legs. Normal speech. PSYCHIATRIC: Appropriate mood and affect; insight and judgment normal. Assessment and Plan Assessment and Plan IMP: RESP. FAILURE PNA S/P TRACH PLAN VENT SUPPORT NEEDED ANTIBX F/U CXRAY Marck Acharya MD January 18, 2018 21:34
[2018-01-19] VITALS (12 sets, daily range): BP systolic 133–158; BP diastolic 65–82; PULSE 70–88; RESP 12–16; TEMP 97.8–98.8; O2SAT 92–97
[2018-01-19] MEDS: INSULIN NovoLIN REGULAR SUPPLEMENTAL SCALE SQ SCH ×4 (00:49→18:34)
[2018-01-19] MEDS: hydrALAZINE HCL 10 MG TAB PEG SCH ×3 (05:33→20:55)
[2018-01-19] MEDS: CEFEPIME INJ 2,000 MG in SODIUM CHLORIDE 0.9% INJ 100 ML IV SCH ×2 (05:33→12:15)
[2018-01-19] MEDS: FREE WATER G-TUBE SCH ×4 (05:33→17:55)
[2018-01-19] MEDS: RESP: COLISTIN 150 MG VIAL NEB SCH ×2 (08:26→21:33)
[2018-01-19] MEDS: METOCLOPRAMIDE HCL SYRUP 10 MG/10 ML UDC G-TUBE SCH ×4 (09:00→17:55)
[2018-01-19] MEDS: LINEZOLID 600 MG TAB PO SCH ×2 (09:00→20:54)
[2018-01-19] MEDS: CHOLECALCIFEROL (VIT D3) 5000 UNIT CAP PEG SCH (09:00)
[2018-01-19] MEDS: LANSOPRAZOLE SOLUTAB 30 MG TAB NG SCH (09:14)
[2018-01-19] MEDS: CHOLESTYRAMINE LIGHT 4 GM PACKAGE PEG SCH ×2 (09:14→20:54)
[2018-01-19] MEDS: LACTOBACILLUS ACIDOPHILUS TAB PEG SCH ×3 (09:14→17:55)
[2018-01-19] MEDS: CALCIUM POLYCARBOPHIL 625 MG TAB PEG SCH ×2 (09:15→20:54)
[2018-01-19] MEDS: CALCIUM/VITAMIN D 250 MG/125 U TAB PEG SCH ×3 (09:15→17:55)
[2018-01-19] MEDS: FUROSEMIDE 40 MG/4 ML VIAL IV PUSH SCH (09:15)
[2018-01-19 09:20] LABS: AUTOMATED NEUTROPHIL # 14.4 TH/MM3 (1.8-7.7); BASOPHIL # 0.2 TH/MM3 (0-0.2); BASOPHIL % 0.9 % (0.0-2.0); EOSINOPHIL # 0.6 TH/MM3 (0-0.4); EOSINOPHIL % 3.6 % (0.0-4.0); HEMATOCRIT 26.2 % (35.0-46.0); HEMOGLOBIN 8.8 GM/DL (11.6-15.3); LYMPH % 10.8 % (9.0-44.0); MEAN CORPUSCULAR HGB CONC 33.7 % (32.0-36.0); MEAN PLATELET VOLUME 8.8 FL (7.0-11.0); MONO % 5.7 % (0.0-8.0); PLATELET COUNT 406 TH/MM3 (150-450); RED BLOOD COUNT 2.75 MIL/MM3 (4.00-5.30); RED CELL DISTRIBUTION WIDTH 16.2 % (11.6-17.2); WHITE BLOOD COUNT 18.3 TH/MM3 (4.0-11.0)
[2018-01-19] MEDS: ALBUMIN 5% INJ 250 ML IV SCH ×3 (09:32→23:00)
[2018-01-19 10:03] LABS: BICARBONATE 21.6 MEQ/L (21.0-32.0); CALCIUM 9.2 MG/DL (8.5-10.1); CREATININE 1.62 MG/DL (0.50-1.00)
[2018-01-19 10:04] LABS: BANDS 5 % (0-6); BASOPHILS 1 % (0-2); LYMPHOCYTES 10 % (9-44); MYELOCYTES 2 % (0-0); NEUTROPHIL # MANUAL DIFF 15.6 TH/MM3 (1.8-7.7); POLYS (SEG NEUTROPHILS) 78 % (16-70)
--- NOTE | 2018-01-19 10:54 | HHI.NPPN ---
Subjective Renal Failure: Acute Interval History She remains unresponsive on the vent. Hypokalemic this morning. RN reports she has not been moving her left side since the weekend. (Dawn Cain) Review of Systems General General Remarks unable to evaluate (Dawn Cain) Objective Data Data Vital Signs Date Time Temp Pulse Resp B/P (MAP) Pulse Ox O2 Delivery O2 Flow Rate FiO2 01/19/18 08:26 95 40 01/19/18 05:00 95 40 01/19/18 04:00 40 01/19/18 04:00 97.9 88 16 157/80 (105) 97 01/19/18 01:05 95 40 01/19/18 00:00 98.3 88 16 156/77 (103) 96 01/18/18 20:30 99.2 74 16 149/68 (95) 97 01/18/18 20:30 70 01/18/18 20:30 40 01/18/18 20:10 100 100 01/18/18 19:20 96 40 01/18/18 18:00 80 01/18/18 16:00 40 01/18/18 16:00 78 01/18/18 16:00 98.8 68 18 128/60 (82) 96 01/18/18 15:58 94 40 01/18/18 14:00 72 01/18/18 13:13 96 40 01/18/18 12:00 99.0 80 16 143/65 (91) 96 01/18/18 12:00 40 01/18/18 12:00 80 (Dawn Cain) -: 01/19/18 0850 01/19/18 0850 Tubes & Lines: [place] Tubes & Lines Comment trach (Dawn Cian) Physical Exam General Appearance: Well Developed, No Acute Distress (Dawn Cain) Ears & Nose Ears & Nose Exam: Nasal Mucosa [place] (Dawn Cain) Throat Throat Remarks trach/vent (Dawn Cain) Neck Neck Exam: Neck Supple (Dawn Cain) Pulmonary Resp Exam: Diminished Breath Sounds (Dawn Cain) Cardiology CV Exam: Regular, Normal Sinus Rhythm (Dawn Cain) Gastrointestinal/Abdomen GI Exam: Soft, Non-Tender, Bowel Sounds Present (Dawn Cain) Genitourinary Exam: Clear Urine (Dawn Cain) Musculoskeletal MS Exam: Unable to Ambulate (Dawn Cain) Integumentary Skin Exam: Dry, Intact (Dawn Cain) Extremeties Extremities Exam: Pedal Pulses Palpable, Trace Edema (Dawn Cain) Neurologic Neuro Exam: Awake, Sedated Neuro Remarks right side stiff/afsaneh (Dawn Cain) Assessment/Plan Discussed Condition Comment Bedside RN Problem List: (1) Acute kidney failure ICD Codes: N17.9 - Acute kidney failure, unspecified Plan: Normal renal function at baseline MIRIAM developed from the 16, May have suffered ATN due to hypotension/ hypoperfusion May also be due to infection and sepsis. Renal US showing mild right hydronephrosis, the significance of which is not known. Consider CT abd/pelvis today. On lasix 40mg IV BID and albumin Repeat labs Monitor urine output. Avoid nephrotoxic agents. Lisinopril being held. (2) HCAP (healthcare-associated pneumonia) ICD Codes: J18.9 - Pneumonia, unspecified organism Status: Resolved Plan: Early sepsis. To be transferred to [facility] ID following, antibiotics include cefepime and zyvoxx. Leukocytosis noted (3) UTI (urinary tract infection) ICD Codes: N39.0 - Urinary tract infection, site not specified Status: Acute Plan: ID following, managing antibiotics On PO difulcan (4) Chronic respiratory failure ICD Codes: J96.10 - Chronic respiratory failure, unspecified whether with hypoxia or hypercapnia Status: Chronic Plan: Unsuccessful vent weening Now with pneumonia (5) Hypokalemia ICD Codes: E87.6 - Hypokalemia Plan: Previously hyperkalemic Replacement ordered PO/IV Consider changing tube feeding back to Glucerna (6) Hyperkalemia ICD Codes: E87.5 - Hyperkalemia Plan: Corrected, see above (Dawn Cain) Problem List: (1) Acute kidney failure ICD Codes: N17.9 - Acute kidney failure, unspecified Plan: Normal renal function at baseline MIRIAM developed from the 16, May have suffered ATN due to hypotension/ hypoperfusion May also be due to infection and sepsis. Renal US showing mild right hydronephrosis, the significance of which is not known. Consider CT abd/pelvis today. On lasix 40mg IV BID and albumin Repeat labs Monitor urine output. Avoid nephrotoxic agents. Lisinopril being held. (2) HCAP (healthcare-associated pneumonia) ICD Codes: J18.9 - Pneumonia, unspecified organism Status: Resolved Plan: Early sepsis. To be transferred [place] [facility] [place], antibiotics include cefepime and zyvoxx. Leukocytosis noted (3) UTI (urinary tract infection) ICD Codes: N39.0 - Urinary tract infection, site not specified Status: Acute Plan: ID following, managing antibiotics On PO difulcan (4) Chronic respiratory failure ICD Codes: J96.10 - Chronic respiratory failure, unspecified whether with hypoxia or hypercapnia Status: Chronic Plan: Unsuccessful vent weening Now with pneumonia (5) Hypokalemia ICD Codes: E87.6 - Hypokalemia Plan: Previously hyperkalemic Replacement ordered PO/IV Consider changing tube feeding back to Glucerna (6) Hyperkalemia ICD Codes: E87.5 - Hyperkalemia Plan: Corrected, see above Plan patient was seen and examined. Agree with above assessment and plan. Reduce Lasix to once daily. Replace potassium. Very poor prognosis. (Claudy David MD) Problem Qualifiers (1) UTI (urinary tract infection): Qualified Codes: N39.0 - Urinary tract infection, site not specified (2) Chronic respiratory failure: Qualified Codes: J96.11 - Chronic respiratory failure with hypoxia Dawn Cain AP[employer]S SYSTEMS ANALYST January 19, 2018 10:54 Claudy David MD January 19, 2018 11:26
[2018-01-19] MEDS ORDERED: POTASSIUM CHLOR 20 MEQ PREMIX 100 ML IV ONE (11:00)
[2018-01-19] MEDS ORDERED: POTASSIUM CHLORIDE 25 MEQ EFFERVESCENT TAB PO ONE (11:00)
[2018-01-19] MEDS: INSULIN DETEMIR 100 UNITS/ML VIAL SQ SCH (12:13)
[2018-01-19] MEDS: FLUCONAZOLE 100 MG TAB PO SCH (12:14)
--- NOTE | 2018-01-19 13:20 | HHI.PR ---
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 Discussed with nurse now transferred to intermediate care, very poor short term prognosis, still family does not decide for Hospice Care. unable to get activity from the patient. Objective Vital Signs Date Time Temp Pulse Resp B/P (MAP) Pulse Ox O2 Delivery O2 Flow Rate FiO2 01/19/18 11:52 97 40 01/19/18 08:26 95 40 01/19/18 05:00 95 40 01/19/18 04:00 40 01/19/18 04:00 97.9 88 16 157/80 (105) 97 01/19/18 01:05 95 40 01/19/18 00:00 98.3 88 16 156/77 (103) 96 01/18/18 20:30 99.2 74 16 149/68 (95) 97 01/18/18 20:30 70 01/18/18 20:30 40 01/18/18 20:10 100 100 01/18/18 19:20 96 40 01/18/18 18:00 80 01/18/18 16:00 40 01/18/18 16:00 78 01/18/18 16:00 98.8 68 18 128/60 (82) 96 01/18/18 15:58 94 40 01/18/18 14:00 72 I/O 01/18/18 01/18/18 01/18/18 01/19/18 01/19/18 01/19/18 07:00 15:00 23:00 07:00 15:00 23:00 Intake Total 806 ml 570 ml 634 ml Output Total 1725 ml 1250 ml 700 ml Balance -919 ml -680 ml -66 ml IV Total 350 ml Tube Feeding 456 ml 570 ml 384 ml Other 250 ml Output Urine Total 1725 ml 1250 ml 700 ml # Bowel Movements 1 Result Diagram: 01/19/18 0850 01/19/18 0850 Imaging Last Impressions Renal Ultrasound 01/16/18 0000 Signed Impressions: Service Date/Time: Tuesday, January 16, 2018 12:01 - CONCLUSION: 1. Mild left- sided hydronephrosis. 2. Right kidney appears unremarkable 3. Nonvisualization of the bladder. Benja Ramsey MD Chest X-Ray 01/16/18 0000 Signed Impressions: Service Date/Time: Tuesday, January 16, 2018 07:52 - CONCLUSION: 1. Diffuse bilateral pulmonary infiltrates and bilateral pleural effusions, unchanged. Findings could represent congestive heart failure is suggested in the clinical history. 2. Stable position of tracheostomy tube. Plain film findings characteristic of a chronic right-sided rotator cuff injury. Ananda Oneill MD Abdomen X-Ray 01/14/18 0000 Signed Impressions: Service Date/Time: Sunday, January 14, 2018 15:26 - CONCLUSION: 1. Air distention of the gastric lumen and small bowel loops with some air identified in the colon. Possible hypodynamic ileus. 2. Degenerative fibroid Ananda Oneill MD Upper Extremity Ultrasound 11/04/17 0000 Signed Impressions: Service Date/Time: Saturday, November 04, 2017 09:57 - CONCLUSION: No thrombus observed. Subcutaneous edema noted. Deangelo Wren Jr., MD CT Angiography 11/01/17 0000 Signed Impressions: Service Date/Time: Wednesday, November 01, 2017 16:47 - CONCLUSION: No evidence for pulmonary embolism. Please see above. Choco Mustafa MD Thoracentesis 08/05/17 1535 Signed Impressions: Service Date/Time: Saturday, August 05, 2017 16:08 - CONCLUSION: Uncomplicated CT-guided thoracentesis. Sage Adler MD Chest Ultrasound 08/02/17 0000 Signed Impressions: Service Date/Time: Tuesday, August 01, 2017 22:06 - CONCLUSION: 1. Moderate right pleural effusion, as above. Alejo De La Vega MD Hip and Pelvis X-Ray 07/09/17 0000 Signed Impressions: Service Date/Time: Sunday, July 09, 2017 14:04 - CONCLUSION: Anatomic alignment. Ricardo Middleton MD FACR Liver Ultrasound 06/19/17 0000 Signed Impressions: Service Date/Time: June 13:20 - CONCLUSION: 1. Mildly increased echotexture of the liver characteristic of hepatic steatosis. 2. Gallbladder sludge. Obdulio Sam MD Head CT 05/15/17 0000 Signed Impressions: Service Date/Time: May 19:59 - CONCLUSION: 1. 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 2. No bleed or new/acute infarct. Obdulio Simms MD Gall Bladder Ultrasound 05/08/17 0000 Signed Impressions: Service Date/Time: May 08:23 - CONCLUSION: Focally unremarkable appearance of the gallbladder Obdulio Chun MD Abdomen/Pelvis CT 05/07/17 0000 Signed Impressions: Service Date/Time: Sunday, May 07, 2017 13:23 - CONCLUSION: 1. Large left pneumothorax. 2. Bilateral lower lobe consolidation and bilateral moderate size pleural effusions. 3. Significant soft tissue thickening of the right lateral chest wall and left gluteus muscle. 4. Mild ascites. The findings were called to Dr. Carney. Deangelo Zamora MD Chest CT 04/30/17 0000 Signed Impressions: Service Date/Time: Sunday, April 30, 2017 09:20 - CONCLUSION: 1. Bilateral pulmonary infiltrates more pronounced within the lower lobes with tiny bilateral pleural effusions. Material seen filling the lower lobe bronchi bilaterally either related to purulent material or perhaps mucus plugging. Deangelo Wren Jr., MD Carotid Artery Ultrasound 04/24/17 0000 Signed Impressions: Service Date/Time: April 09:45 - CONCLUSION: 1. No hemodynamically significant carotid artery stenosis. Arnie Middleton MD Hip X-Ray 04/21/17 0000 Signed Impressions: Service Date/Time: Friday, April 21, 2017 11:36 - CONCLUSION: Fluoroscopic images during placement of intramedullary siomara left femur. Benja Ramsey MD Procedures Tracheostomy 05/15/17 PEG 05/16/17 Other Results Laboratory Tests Test 04/20/17 10:10 04/20/17 16:25 04/21/17 04:50 04/26/17 12:20 Venous Blood pH 7.25 Venous Blood Partial Pressure CO2 53 mmHg Venous Blood Partial Pressure O2 22 mmHg Venous Blood HCO3 23 mmol/L Venous Blood Oxygen Saturation 25 % Venous Blood Oxygen Content 3.7 Vol % Venous Blood Base Excess -3.6 mmol/L Nasal Screen MRSA (PCR) MRSA NOT DETECTED 25-Hydroxy Vitamin D Total 27.4 ng/ML B-Hydroxybutyrate 0.93 MMOL/L Urine Yeast (Budding) FEW Test 04/30/17 04:36 05/04/17 09:42 05/07/17 04:21 05/07/17 21:00 Serum Osmolality 345 MOSM/KG Vancomycin Level Trough 23.8 MCG/ML Blood Urea Nitrogen 36 MG/DL Creatinine 0.37 MG/DL Random Glucose 239 MG/DL Total Protein 5.1 GM/DL Albumin 1.5 GM/DL Calcium Level 7.7 MG/DL Alkaline Phosphatase 1931 U/L Aspartate Amino Transf (AST/SGOT) 217 U/L Alanine Aminotransferase (ALT/SGPT) 55 U/L Gamma Glutamyl Transpeptidase 787 U/L Total Bilirubin 1.2 MG/DL Direct Bilirubin 0.8 MG/DL Sodium Level 145 MEQ/L Potassium Level 3.9 MEQ/L Chloride Level 109 MEQ/L Carbon Dioxide Level 27.8 MEQ/L Lactate Dehydrogenase 532 U/L Amylase Level 21 U/L Lipase 48 U/L Test 05/08/17 04:44 05/08/17 21:10 05/09/17 14:04 05/11/17 04:55 Stomatocytes 1+ Total Alkaline Phosphatase 1484 U/L Alkaline Phosphatase Iso-Intestine 0 % Alkaline Phosphatase Iso-Bone 41 % Alkaline Phosphatase Iso-Liver 59 % Hepatitis A IgM Antibody NEGATIVE Hepatitis B Surface Antigen NEGATIVE Hepatitis B Core IgM Antibody NEGATIVE Hepatitis C Antibody REACTIVE Procalcitonin 0.61 ng/mL Hepatitis C RNA Genotype NOT DETECTED Hepatitis C RNA (PCR) IUs/ml LESS THAN 15 IU/mL Hepatitis C RNA (PCR) log IUs/ml LESS THAN 1.18 Blood Urea Nitrogen 29 MG/DL Creatinine 0.37 MG/DL Random Glucose 200 MG/DL Total Protein 3.1 GM/DL Albumin 0.7 GM/DL Calcium Level 6.6 MG/DL Alkaline Phosphatase 549 U/L Aspartate Amino Transf (AST/SGOT) 30 U/L Alanine Aminotransferase (ALT/SGPT) 14 U/L Total Bilirubin 0.6 MG/DL Direct Bilirubin 0.2 MG/DL Sodium Level 145 MEQ/L Potassium Level 3.7 MEQ/L Chloride Level 106 MEQ/L Carbon Dioxide Level 35.5 MEQ/L Indirect Bilirubin 0.4 MG/DL Test 05/17/17 06:25 07/11/17 03:58 07/20/17 09:32 09/09/17 05:30 Protein Corrected Calcium 8.4 MG/DL Prealbumin 20 MG/DL Urine Amorphous Sediment OCC Urine Mucus FEW /lpf Test 09/30/17 08:08 10/17/17 18:04 10/21/17 09:15 10/24/17 14:41 Toxic Vacuolation PRESENT Promyelocytes 2 % Nucleated Red Blood Cells 1 /100 WBC [place] Bodies PRESENT Dohle Bodies PRESENT Test 10/28/17 07:27 10/31/17 22:20 11/16/17 09:47 12/05/17 06:58 Polychromasia 2.0 % D-Dimer Quantitative (PE/DVT) 1.94 MG/L FEU Hemoglobin A1c 5.3 % Free Thyroxine 0.79 NG/DL Thyroid Stimulating Hormone 3rd Gen 5.270 uIU/ML Troponin I LESS THAN 0.02 NG/ML Test 12/05/17 07:30 12/21/17 09:16 12/21/17 15:20 12/25/17 07:36 Urine Transitional Epithelial Cells <1 /hpf Urine Hyaline Casts 2 /lpf Total Creatine Kinase 88 U/L Stool C. difficile Toxin (PCR) NEGATIVE Stl C. difficile Toxin Epiderm 027 PRESUMPTIVE NEGATIVE Atypical Lymphocytes % Basophilic Stippling FAINT Test 12/31/17 10:37 12/31/17 20:42 01/11/18 07:23 01/12/18 08:49 Blood Gas Liter Flow 10 L/M Prothrombin Time 11.4 SEC Prothromb Time International Ratio 1.1 RATIO Activated Partial Thromboplast Time 28.3 SEC Blastocytes 1 % Hematology Comments Plasma Cells 1 % Toxic Granulation 1+ Red Cell Morphology Comment NORMAL Test 01/12/18 14:30 01/14/18 14:30 01/16/18 08:24 01/16/18 23:04 M. tuberculosis Complex DNA (PCR) NOT DETECTED Urine Color DARK-YELLOW Urine Turbidity CLOUDY Urine pH 5.0 Urine Specific [place] 1.026 Urine Protein 30 mg/dL Urine Glucose (UA) NEG mg/dL Urine Ketones 10 mg/dL Urine Occult Blood SMALL Urine Nitrite NEG Urine Bilirubin NEG Urine Urobilinogen LESS THAN 2.0 MG/DL Urine Leukocyte Esterase LARGE Urine RBC 15 /hpf Urine WBC /hpf Urine WBC Clumps FEW Urine Squamous Epithelial Cells 18 /hpf Urine Bacteria FEW /hpf Microscopic Urinalysis Comment CATH-CULTURE IND Lactic Acid Level 1.3 mmol/L B-Type Natriuretic Peptide 1362 PG/ML Blood Gas Puncture Site RT RADIAL Blood Gas Patient Temperature 98.6 Blood Gas HCO3 21 mmol/L Blood Gas Base Excess -2.8 mmol/L Blood Gas Oxygen Saturation 96 % Arterial Blood pH 7.39 Arterial Blood Partial Pressure CO2 36 mmHg Arterial Blood Partial Pressure O2 109 mmHg Arterial Blood Oxygen Content 10.7 Vol % Arterial Blood Carboxyhemoglobin 1.4 % Arterial Blood Methemoglobin 1.2 % Blood Gas Hemoglobin 7.8 G/DL Oxygen Delivery Device VENTILATOR Blood Gas Ventilator Setting AC 16/500/5PEEP Blood Gas Inspired Oxygen 45 % Test 01/17/18 04:58 01/19/18 08:50 Monocytes % 4 % Metamyelocytes 1 % Blood Urea Nitrogen 66 MG/DL 65 MG/DL Creatinine 1.57 MG/DL 1.62 MG/DL Random Glucose 130 MG/DL 183 MG/DL Total Protein 6.2 GM/DL Albumin 2.0 GM/DL Calcium Level 9.1 MG/DL 9.2 MG/DL Phosphorus Level 4.1 MG/DL Magnesium Level 2.2 MG/DL Alkaline Phosphatase 317 U/L Aspartate Amino Transf (AST/SGOT) 21 U/L Alanine Aminotransferase (ALT/SGPT) 23 U/L Total Bilirubin 0.3 MG/DL Sodium Level 137 MEQ/L 139 MEQ/L Potassium Level 4.1 MEQ/L 2.8 MEQ/L Chloride Level 103 MEQ/L 106 MEQ/L Carbon Dioxide Level 21.1 MEQ/L 21.6 MEQ/L White Blood Count 18.3 TH/MM3 Red Blood Count 2.75 MIL/MM3 Hemoglobin 8.8 GM/DL Hematocrit 26.2 % Mean Corpuscular Volume 95.0 FL Mean Corpuscular Hemoglobin 32.0 PG Mean Corpuscular Hemoglobin Concent 33.7 % Red Cell Distribution Width 16.2 % Platelet Count 406 TH/MM3 Mean Platelet Volume 8.8 FL Neutrophils (%) (Auto) 79.0 % Lymphocytes (%) (Auto) 10.8 % Monocytes (%) (Auto) 5.7 % Eosinophils (%) (Auto) 3.6 % Basophils (%) (Auto) 0.9 % Neutrophils # (Auto) 14.4 TH/MM3 Lymphocytes # (Auto) 2.0 TH/MM3 Monocytes # (Auto) 1.0 TH/MM3 Eosinophils # (Auto) 0.6 TH/MM3 Basophils # (Auto) 0.2 TH/MM3 CBC Comment AUTO DIFF Differential Total Cells Counted 100 Neutrophils % (Manual) 78 % Band Neutrophils % 5 % Lymphocytes % 10 % Eosinophils % 4 % Basophils % 1 % Neutrophils # (Manual) 15.6 TH/MM3 Myelocytes 2 % Differential Comment FINAL DIFF MANUAL Platelet Estimate HIGH Platelet Morphology Comment NORMAL Anion Gap 11 MEQ/L Estimat Glomerular Filtration Rate 31 ML/MIN Objective Remarks GENERAL:Lethargic do not follow commands. SKIN: Warm and dry. HEAD: Normocephalic. EYES: No scleral icterus. No injection or drainage. NECK: Supple, trachea midline. No JVD or lymphadenopathy. T piece in place, no redness over trach insertion site. CARDIOVASCULAR: Regular rate and rhythm without murmurs, gallops, or rubs. RESPIRATORY: Decreased breath sounds at the bases. GASTROINTESTINAL: Abdomen soft, non-tender, nondistended. MUSCULOSKELETAL: No cyanosis, or edema. BACK: Nontender without obvious deformity. No CVA tenderness. Medications and IVs Current Medications Medications (Trade) Dose Ordered Sig/Zeferino Route Start Time Stop Time Status Last Admin (Narcan Inj) 0.4 mg UNSCH PRN IV 04/20/17 17:15 (Prevacid Odt) 30 mg DAILY NG 05/08/17 09:00 01/19/18 09:14 (Pill Splitter) 1 ea UNSCH PRN OTHER 09/05/17 11:00 (Apresoline) 10 mg Q8HR PEG 09/24/17 14:00 01/19/18 12:14 (Norvasc) 10 mg DAILY PEG 10/04/17 09:00 Future Hold 01/15/18 07:46 (Oscal-D 250-125) 250 mg TID PEG 10/03/17 13:00 01/19/18 11:28 (Vitamin D3) 5,000 units DAILY PEG 10/04/17 09:00 01/19/18 09:00 (Albuterol Neb) 2.5 mg Q2HR NEB PRN NEB 2/2/18 21:45 01/15/18 19:20 (Tylenol 650 Mg/ 20 ml Liq) 650 mg Q6H PRN PEG 10/26/17 06:45 01/13/18 00:03 (D50w (Vial) Inj) 50 ml UNSCH PRN IV PUSH 11/04/17 12:30 01/03/18 14:03 (Glucagon Inj) 1 mg UNSCH PRN OTHER 11/04/17 12:30 (NovoLIN R SUPPLEMENTAL SCALE) 1 Q6H SQ 11/04/17 12:30 01/19/18 12:14 (Prinivil) 5 mg DAILY PEG 11/23/17 09:00 Future Hold 01/15/18 07:46 (Zofran Inj) 4 mg Q6HR PRN IV PUSH 12/08/17 05:00 01/17/18 00:24 (Tears Naturale Opth Soln) 1 drop Q8H PRN EACH EYE 12/19/17 19:30 01/10/18 09:11 (Questran Light Pkt) 4 gm BID PEG 12/25/17 09:00 01/19/18 09:14 (Levemir Inj) 7 units Q12H SQ 01/04/18 00:00 01/19/18 12:13 (Coly-Mycin M Neb) 75 mg BID NEB NEB 01/07/18 12:00 01/19/18 08:26 (Lactinex) 1 tab TID PEG 01/10/18 13:00 01/19/18 11:29 (Fiber Con) 625 mg Q12HR PEG 01/10/18 21:00 01/19/18 09:15 (Lomotil 2.5-0.025 Mg Liq) 5 ml Q6H PRN PEG 01/10/18 12:15 (Roxicodone Intensol Liq) 5 mg Q6H PRN PEG 01/10/18 12:15 01/15/18 20:03 (Neurontin) 100 mg TID PRN PO 01/10/18 12:30 01/11/18 09:51 (Diflucan) 100 mg Q24H PO 01/14/18 14:00 01/19/18 12:14 (Reglan Liq) 10 mg TID G-TUBE 01/15/18 18:00 01/19/18 11:28 (Free Water) 200 ml Q6HR G-TUBE 01/15/18 18:00 01/19/18 11:29 Albumin Human 250 ml @ 250 mls/hr Q12H IV 01/16/18 11:00 01/21/18 09:00 01/19/18 10:43 Cefepime HCl 2000 mg/Sodium Chloride 100 ml @ 200 mls/hr Q12H IV 01/16/18 14:00 01/22/18 11:59 01/19/18 12:15 (Zyvox) 600 mg Q12HR PO 01/16/18 12:45 01/19/18 09:00 Potassium Chloride 100 ml @ 50 mls/hr BOLUS ONCE IV 01/19/18 11:00 01/19/18 12:59 01/19/18 11:29 (Lasix Inj) 40 mg DAILY IV PUSH 01/20/18 09:00 A/P Assessment and Plan (1) Acute ischemic left middle cerebral artery (MCA) stroke ICD Code: I63.512 - Cerebral infarction due to unspecified occlusion or stenosis of left middle cerebral artery Status: Acute (2) Acute respiratory failure ICD Code: J96.00 - Acute respiratory failure, unspecified whether with hypoxia or hypercapnia Status: Resolved (3) Right hemiplegia ICD Code: G81.91 - Hemiplegia, unspecified affecting right dominant side Status: Acute (4) Sacral decubitus ulcer ICD Code: L89.159 - Pressure ulcer of sacral region, unspecified stage Status: Chronic (5) HCAP (healthcare-associated pneumonia) ICD Code: J18.9 - Pneumonia, unspecified organism Status: Resolved (6) 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 She underwent ORIF on 04/21/17 and on 04/24 a stroke alert was called as she was found to have right hemiparesis with left gaze. She has a poor prognosis based on her lack of overall recovery over the last 6+ months. Pulmonary edema -resolved chest x-ray done 11/13/2017, evidence of pulmonary edema, continue Lasix, monitor BMP every few weeks. 12/03 Chest x-ray on shows bilateral hazy airspace disease overall improved from November 13. Cardiomegaly. Left MCA stroke 5.5 mm of [id number] subfalcine herniation, diagnosed 04/24. Was not a candidate for thrombolysis at that time. Increasing edema seen on repeat CT 04/28 with a reduction in midline shift on another repeat on 04/30 Neurologic condition remained poor and she underwent trach 05/15/17 and PEG Persistent right-sided hemiparesis. Previously seen by neurology, signed off Previously seen by neurosurgery, signed off Continue daily ASA at this time patient not moving any extremity. Hypertension / CHF Order chest x-ray on 01/16/18 secondary to worsening leukocytosis. Chest x- ray reviewed by me shows diffuse bilateral pulmonary infiltrates and bilateral pleural effusions. Stable position of tracheostomy tube. Nephrology following and giving IV Lasix 40 mg BID. Albumin. Chronic Tracheostomy /respiratory failure 10/22/2017 Pulmonary toilet, trach care Duo nebs as needed Pulm following, appreciate assistance. Currently on mechical ventilation - assist control with an fio2 of 50% Large left pneumothorax Resolved Chest tube placed 05/07, discontinued 05/12/17 Hepatitis C LFTs normalized Negative genotype/viral load Diabetes mellitus SSI Novolin R High-dose scale FEN PEG tube feeding with Glucerna 1.5 goal 45 cc/hr, per nutrition recommendations Anal Fissure continue wound care Bradycardia Improved. Upon review of records the patient was recently evaluated by radiology due to bradycardia on 11/19/17. At the time cardiology recommended observation and avoidance of AV du blocking agents. EKG obtained on 12/02 shows sinus rhythm with moderate T-wave abnormalities on anterolateral leads. Hypokalemia replaced by Nephrology specialist, discontinued Furosemide and continue Albumin. 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 Acute kidney injury Nephrology following. DVT prophylaxis Heparin Discharge Planning Very poor prognosis. Appreciate palliative care efforts. Calvin Gerardo MD January 19, 2018 13:20
--- NOTE | 2018-01-19 21:05 | HHI.PR ---
Subjective Remarks . Tolerates TF to goal rate No fever Moderate amount of thick mucous BAL positive for AFB PCR Neg for MTB on AC 16, Fi02 40% tr to Back to ocean transportation intermediary resp unit Urine out put decreased TF 45cc /hr Objective Vital Signs Vital Signs Date Time Temp Pulse Resp B/P (MAP) Pulse Ox O2 Delivery O2 Flow Rate FiO2 01/19/18 20:00 97.8 85 16 158/65 (96) 94 01/19/18 16:23 94 40 01/19/18 16:01 40 01/19/18 16:00 98.0 76 12 149/70 (96) 94 01/19/18 15:45 40 01/19/18 12:00 98.8 70 12 133/80 (97) 92 01/19/18 11:52 97 40 01/19/18 08:26 95 40 01/19/18 08:00 98.2 72 14 136/82 (100) 95 01/19/18 05:00 95 40 01/19/18 04:00 40 01/19/18 04:00 97.9 88 16 157/80 (105) 97 01/19/18 01:05 95 40 01/19/18 00:00 98.3 88 16 156/77 (103) 96 I/O 01/18/18 01/18/18 01/18/18 01/19/18 01/19/18 01/19/18 07:00 15:00 23:00 07:00 15:00 23:00 Intake Total 806 ml 820 ml 734 ml 670 ml Output Total 1725 ml 1250 ml 700 ml 600 ml Balance -919 ml -430 ml 34 ml 70 ml IV Total 350 ml 250 ml 100 ml Tube Feeding 456 ml 570 ml 384 ml 370 ml Other 250 ml 300 ml Output Urine Total 1725 ml 1250 ml 700 ml 600 ml # Bowel Movements 1 1 Result Diagram: 01/19/18 0850 01/19/18 0850 Objective Remarks GENERAL: Elderly female,NAD SKIN: Warm and dry. HEAD: Normocephalic. EYES: No scleral icterus. No injection or drainage. NECK: Supple, trachea midline. No JVD or lymphadenopathy. + trach CARDIOVASCULAR: Regular rate and rhythm without murmurs, gallops, or rubs. RESPIRATORY: Breath sounds equal bilaterally. No accessory muscle use. GASTROINTESTINAL: Abdomen soft, non-tender, nondistended. MUSCULOSKELETAL: No cyanosis, or edema. BACK: Nontender without obvious deformity. No CVA tenderness. 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 Chris Rizo MD January 19, 2018 21:05
[2018-01-20] VITALS (12 sets, daily range): BP systolic 72–163; BP diastolic 72–83; PULSE 56–96; RESP 14–18; TEMP 97.7–99; O2SAT 94–99
[2018-01-20] MEDS: INSULIN NovoLIN REGULAR SUPPLEMENTAL SCALE SQ SCH ×5 (00:30→23:17)
[2018-01-20] MEDS: CEFEPIME INJ 2,000 MG in SODIUM CHLORIDE 0.9% INJ 100 ML IV SCH ×2 (02:00→12:00)
[2018-01-20] MEDS: FREE WATER G-TUBE SCH ×5 (05:31→23:03)
[2018-01-20] MEDS: hydrALAZINE HCL 10 MG TAB PEG SCH ×3 (05:33→20:12)
[2018-01-20] MEDS: CALCIUM/VITAMIN D 250 MG/125 U TAB PEG SCH ×3 (08:05→17:58)
[2018-01-20] MEDS: LANSOPRAZOLE SOLUTAB 30 MG TAB NG SCH (08:05)
[2018-01-20] MEDS: METOCLOPRAMIDE HCL SYRUP 10 MG/10 ML UDC G-TUBE SCH ×3 (08:06→17:58)
[2018-01-20] MEDS: CHOLECALCIFEROL (VIT D3) 5000 UNIT CAP PEG SCH (08:07)
[2018-01-20] MEDS: LINEZOLID 600 MG TAB PO SCH ×2 (08:07→20:12)
[2018-01-20] MEDS: CHOLESTYRAMINE LIGHT 4 GM PACKAGE PEG SCH ×2 (08:07→20:12)
[2018-01-20] MEDS: CALCIUM POLYCARBOPHIL 625 MG TAB PEG SCH ×2 (08:07→20:12)
[2018-01-20] MEDS: FUROSEMIDE 40 MG/4 ML VIAL IV PUSH SCH (08:07)
[2018-01-20] MEDS: ALBUMIN 5% INJ 250 ML IV SCH ×2 (08:07→23:14)
[2018-01-20] MEDS: LACTOBACILLUS ACIDOPHILUS TAB PEG SCH ×3 (08:07→17:58)
[2018-01-20] MEDS: RESP: COLISTIN 150 MG VIAL NEB SCH ×2 (09:12→20:48)
[2018-01-20 09:37] LABS: ALBUMIN 2.4 GM/DL (3.4-5.0); BICARBONATE 19.9 MEQ/L (21.0-32.0); CALCIUM 8.9 MG/DL (8.5-10.1); CREATININE 1.71 MG/DL (0.50-1.00)
[2018-01-20 09:47] LABS: PHOSPHORUS 1.5 MG/DL (2.5-4.9)
[2018-01-20] MEDS ORDERED: POTASSIUM PHOSPHATE MONOBASIC 500 MG TAB PEG ONE ×2 (10:15→12:45)
--- NOTE | 2018-01-20 10:15 | HHI.NPPN ---
Subjective Renal Failure: Acute Interval History Remains on the vent. Right sided muscle rigidity noted. Non verbal, unclear if she speaks/understands Khmer language. Some edema, she is nonoliguric. Creatinine is higher today. (Dawn Cain) Review of Systems General General Remarks unable to evaluate (Dawn Cain) Objective Data Data Vital Signs Date Time Temp Pulse Resp B/P (MAP) Pulse Ox O2 Delivery O2 Flow Rate FiO2 01/20/18 09:12 40 01/20/18 09:12 96 40 01/20/18 08:00 98.4 64 14 72/ 95 01/20/18 08:00 40 01/20/18 04:19 95 40 01/20/18 04:00 97.7 82 16 159/82 (107) 95 01/20/18 04:00 40 01/20/18 01:20 95 40 01/20/18 00:00 97.7 85 16 163/83 (109) 95 01/19/18 21:33 95 40 01/19/18 20:00 97.8 85 16 158/65 (96) 94 01/19/18 20:00 40 01/19/18 16:23 94 40 01/19/18 16:01 40 01/19/18 16:00 98.0 76 12 149/70 (96) 94 01/19/18 15:45 40 01/19/18 12:00 98.8 70 12 133/80 (97) 92 01/19/18 11:52 97 40 (Dawn Cain) -: 01/19/18 0850 01/20/18 0824 Imaging Last Impressions Renal Ultrasound 01/16/18 0000 Signed Impressions: Service Date/Time: Tuesday, January 16, 2018 12:01 - CONCLUSION: 1. Mild left- sided hydronephrosis. 2. Right kidney appears unremarkable 3. Nonvisualization of the bladder. Benja Ramsey MD Chest X-Ray 01/16/18 0000 Signed Impressions: Service Date/Time: Tuesday, January 16, 2018 07:52 - CONCLUSION: 1. Diffuse bilateral pulmonary infiltrates and bilateral pleural effusions, unchanged. Findings could represent congestive heart failure is suggested in the clinical history. 2. Stable position of tracheostomy tube. Plain film findings characteristic of a chronic right-sided rotator cuff injury. Ananda Oneill MD Abdomen X-Ray 01/14/18 0000 Signed Impressions: Service Date/Time: Sunday, January 14, 2018 15:26 - CONCLUSION: 1. Air distention of the gastric lumen and small bowel loops with some air identified in the colon. Possible hypodynamic ileus. 2. Degenerative fibroid Ananda Oneill MD Upper Extremity Ultrasound 11/04/17 0000 Signed Impressions: Service Date/Time: Saturday, November 04, 2017 09:57 - CONCLUSION: No thrombus observed. Subcutaneous edema noted. Deangelo Wren Jr., MD CT Angiography 11/01/17 0000 Signed Impressions: Service Date/Time: Wednesday, November 01, 2017 16:47 - CONCLUSION: No evidence for pulmonary embolism. Please see above. Choco Mustafa MD Thoracentesis 08/05/17 1535 Signed Impressions: Service Date/Time: Saturday, August 05, 2017 16:08 - CONCLUSION: Uncomplicated CT-guided thoracentesis. Sage Adler MD Chest Ultrasound 08/02/17 0000 Signed Impressions: Service Date/Time: Tuesday, August 01, 2017 22:06 - CONCLUSION: 1. Moderate right pleural effusion, as above. Alejo De La Vega MD Hip and Pelvis X-Ray 07/09/17 0000 Signed Impressions: Service Date/Time: Sunday, July 09, 2017 14:04 - CONCLUSION: Anatomic alignment. Ricardo Middleton MD FACR Liver Ultrasound 06/19/17 0000 Signed Impressions: Service Date/Time: June 13:20 - CONCLUSION: 1. Mildly increased echotexture of the liver characteristic of hepatic steatosis. 2. Gallbladder sludge. Obdulio Sam MD Head CT 05/15/17 0000 Signed Impressions: Service Date/Time: May 19:59 - CONCLUSION: 1. 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 2. No bleed or new/acute infarct. Obdulio Simms MD Gall Bladder Ultrasound 05/08/17 0000 Signed Impressions: Service Date/Time: May 08:23 - CONCLUSION: Focally unremarkable appearance of the gallbladder Obdulio Chun MD Abdomen/Pelvis CT 05/07/17 0000 Signed Impressions: Service Date/Time: Sunday, May 07, 2017 13:23 - CONCLUSION: 1. Large left pneumothorax. 2. Bilateral lower lobe consolidation and bilateral moderate size pleural effusions. 3. Significant soft tissue thickening of the right lateral chest wall and left gluteus muscle. 4. Mild ascites. The findings were called to Dr. Carney. Deangelo Zamora MD Chest CT 04/30/17 0000 Signed Impressions: Service Date/Time: Sunday, April 30, 2017 09:20 - CONCLUSION: 1. Bilateral pulmonary infiltrates more pronounced within the lower lobes with tiny bilateral pleural effusions. Material seen filling the lower lobe bronchi bilaterally either related to purulent material or perhaps mucus plugging. Deangelo Wren Jr., MD Carotid Artery Ultrasound 04/24/17 0000 Signed Impressions: Service Date/Time: April 09:45 - CONCLUSION: 1. No hemodynamically significant carotid artery stenosis. Arnie Middleton MD Hip X-Ray 04/21/17 0000 Signed Impressions: Service Date/Time: Friday, April 21, 2017 11:36 - CONCLUSION: Fluoroscopic images during placement of intramedullary siomara left femur. Benja Ramsey MD Tubes & Lines: [place] Tubes & Lines Comment trach (Dawn Cain BStephanie WARNER) Physical Exam General Appearance: Well Developed, No Acute Distress, Sleeping (Dawn Cain B. MEDICAL ART THERAPIST) Ears & Nose Ears & Nose Exam: Nasal Mucosa [place] (Dawn Cain BStephanie MEDICAL ART THERAPIST) Throat Throat Remarks trach/vent (AntDawn B. MEDICAL ART THERAPIST) Neck Neck Exam: Neck Supple (Dawn Cain BStephanie MEDICAL ART THERAPIST) Pulmonary Resp Exam: Diminished Breath Sounds (Dawn Cain B. MEDICAL ART THERAPIST) Cardiology CV Exam: Regular, Normal Sinus Rhythm (Dawn Cain B. MEDICAL ART THERAPIST) Gastrointestinal/Abdomen GI Exam: Non-Tender, Bowel Sounds Present, Distended GI Remarks firm abdomen, distended. (Dawn Cain B. MEDICAL ART THERAPIST) Genitourinary Exam: Clear Urine (Dawn Cain BStephanie MEDICAL ART THERAPIST) Musculoskeletal MS Exam: Atrophy, Unable to Ambulate MS Remarks right muscle rigidity left side without purposeful movements (Dawn Cain) Integumentary Skin Exam: Dry, Intact (Dawn Cain) Extremeties Extremities Exam: Pedal Pulses Palpable, Trace Edema (Dawn Cain) Neurologic Neuro Remarks eyes closed, opens spontaneously. No tracking right side hemiparesis with rigidity (Dawn Cain) VTE Prophylaxis Device: SCDs (Dawn Cain) Assessment/Plan Problem List: (1) Acute kidney failure ICD Codes: N17.9 - Acute kidney failure, unspecified Plan: Normal renal function at baseline MIRIAM developed from the , Etiologies include ATN due to hypotension/ hypoperfusion, and infection and sepsis. Renal US showing mild right hydronephrosis, the significance of which is not known. On lasix 40mg, once daily with albumin Monitor labs, also monitor urine output. Avoid nephrotoxic agents. Lisinopril being held. Replace phosphorus and potassium today, other electrolytes as needed (2) HCAP (healthcare-associated pneumonia) ICD Codes: J18.9 - Pneumonia, unspecified organism Status: Resolved Plan: With sepsis. Out of IMC ID has evaluated, antibiotics include cefepime and Zyvox. Leukocytosis worsening as of yesterday (3) UTI (urinary tract infection) ICD Codes: N39.0 - Urinary tract infection, site not specified Status: Acute Plan: ID following, managing antibiotics On PO difulcan (4) Chronic respiratory failure ICD Codes: J96.10 - Chronic respiratory failure, unspecified whether with hypoxia or hypercapnia Status: Chronic Plan: Unsuccessful vent weening Being treated for pneumonia, see above (5) Hypokalemia ICD Codes: E87.6 - Hypokalemia Plan: Previously hyperkalemic Replacement ordered via PEG Change tube feeding to Glucerna (6) Hyperkalemia ICD Codes: E87.5 - Hyperkalemia Plan: Corrected, see above (Dawn Cain) Problem List: (1) Acute kidney failure ICD Codes: N17.9 - Acute kidney failure, unspecified Plan: Normal renal function at baseline MIRIAM developed from the , Etiologies include ATN due to hypotension/ hypoperfusion, and infection and sepsis. Renal US showing mild right hydronephrosis, the significance of which is not known. On lasix 40mg, once daily with albumin Monitor labs, also monitor urine output. Avoid nephrotoxic agents. Lisinopril being held. Replace phosphorus and potassium today, other electrolytes as needed (2) HCAP (healthcare-associated pneumonia) ICD Codes: J18.9 - Pneumonia, unspecified organism Status: Resolved Plan: With sepsis. Out of IMC ID has evaluated, antibiotics include cefepime and Zyvox. Leukocytosis worsening as of yesterday (3) UTI (urinary tract infection) ICD Codes: N39.0 - Urinary tract infection, site not specified Status: Acute Plan: ID following, managing antibiotics On PO difulcan (4) Chronic respiratory failure ICD Codes: J96.10 - Chronic respiratory failure, unspecified whether with hypoxia or hypercapnia Status: Chronic Plan: Unsuccessful vent weening Being treated for pneumonia, see above (5) Hypokalemia ICD Codes: E87.6 - Hypokalemia Plan: Previously hyperkalemic Replacement ordered via PEG Change tube feeding to Glucerna (6) Hyperkalemia ICD Codes: E87.5 - Hyperkalemia Plan: Corrected, see above Plan patient was seen and examined. Creatinine is slightly higher. Will consider CT of the abdomen/pelvis if renal function continues to decline. Also will consider stopping diuretic completely. (Claudy David MD) Problem Qualifiers (1) UTI (urinary tract infection): Qualified Codes: N39.0 - Urinary tract infection, site not specified (2) Chronic respiratory failure: Qualified Codes: J96.11 - Chronic respiratory failure with hypoxia Dawn Cain [facility] January 20, 2018 10:15 Claudy David MD January 20, 2018 16:01
--- NOTE | 2018-01-20 10:24 | HHI.IDPN ---
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 She underwent repair of her fracture, and while in the hospital recovering she had a large left MCA CVA. She has required ventilatory support, and ended up getting a tracheostomy on May 15, and a PEG placement May 16. Patient was successfully weaned from the vent. Her neurological status had some improvement , and she has been awake but only intermittently following commands. Patient has been treated for multiple infections including pneumonia and UTI. She has had infections with MDR, including resistant Pseudomonas as well as VRE. About 2 days ago, she had an episode of vomiting and witnessed aspiration. She has been febrile, and her WBC had gone up to 17,000. Chest x-ray done showed some no infiltrates especially on the right side. She also has required BiPAP. Records reviewed. Patient was last seen December 24, and completed a course of treatment for aspiration pneumonia with gram-negative siomara She finished Zosyn last December 27 and at that time she was doing well on T-piece. About a week ago she started having problem with increasing secretions, very thick, and mucous plugging. She started having some intermittent fevers january 04 She had undergone bronchoscopy January 02 Bronchial cultures grew MDR Pseudomonas, and a sensitive Serratia Her WBC is up to 16,000 She is still febrile She has been back on the vent, and currently on CPAP Has very thick light yellow green secretions Also has a lot of oral secretions Has no Leavitt Has PIV in her left foot Notes reviewed Temps ok Remains on the vent, on CPAP Creatinine elevated, good urine output BP ok WBC remains elevated at 18K Zoster rash dry Sputum PSAE R to Avycaz and Zerbaxa UA (+) UC Yeast and GPC Antibiotics Cefepime Colistin nebs Zyvox Diflucan Valtrex Current Medications Medications (Trade) Dose Ordered Sig/Zeferino Route Start Time Stop Time Status Last Admin (Narcan Inj) 0.4 mg UNSCH PRN IV 04/20/17 17:15 (Prevacid Odt) 30 mg DAILY NG 05/08/17 09:00 01/20/18 08:05 (Pill Splitter) 1 ea UNSCH PRN OTHER 09/05/17 11:00 (Apresoline) 10 mg Q8HR PEG 09/24/17 14:00 01/20/18 05:33 (Norvasc) 10 mg DAILY PEG 10/04/17 09:00 Future Hold 01/15/18 07:46 (Oscal-D 250-125) 250 mg TID PEG 10/03/17 13:00 01/20/18 08:05 (Vitamin D3) 5,000 units DAILY PEG 10/04/17 09:00 01/20/18 08:07 (Albuterol Neb) 2.5 mg Q2HR NEB PRN NEB 10/03/17 21:45 01/15/18 19:20 (Tylenol 650 Mg/ 20 ml Liq) 650 mg Q6H PRN PEG 10/26/17 06:45 01/13/18 00:03 (D50w (Vial) Inj) 50 ml UNSCH PRN IV PUSH 11/04/17 12:30 01/03/18 14:03 (Glucagon Inj) 1 mg UNSCH PRN OTHER 11/04/17 12:30 (NovoLIN R SUPPLEMENTAL SCALE) 1 Q6H SQ 11/04/17 12:30 01/20/18 05:33 (Prinivil) 5 mg DAILY PEG 11/23/17 09:00 Future Hold 01/15/18 07:46 (Zofran Inj) 4 mg Q6HR PRN IV PUSH 12/08/17 05:00 01/17/18 00:24 (Tears Naturale Opth Soln) 1 drop Q8H PRN EACH EYE 12/19/17 19:30 01/10/18 09:11 (Questran Light Pkt) 4 gm BID PEG 12/25/17 09:00 01/20/18 08:07 (Levemir Inj) 7 units Q12H SQ 01/04/18 00:00 01/20/18 00:00 (Coly-Mycin M Neb) 75 mg BID NEB NEB 01/07/18 12:00 01/20/18 09:12 (Lactinex) 1 tab TID PEG 01/10/18 13:00 01/20/18 08:07 (Fiber Con) 625 mg Q12HR PEG 01/10/18 21:00 01/20/18 08:07 (Lomotil 2.5-0.025 Mg Liq) 5 ml Q6H PRN PEG 01/10/18 12:15 (Roxicodone Intensol Liq) 5 mg Q6H PRN PEG 01/10/18 12:15 01/15/18 20:03 (Neurontin) 100 mg TID PRN PO 01/10/18 12:30 01/11/18 09:51 (Diflucan) 100 mg Q24H PO 01/14/18 14:00 01/19/18 12:14 (Reglan Liq) 10 mg TID G-TUBE 01/15/18 18:00 01/20/18 08:06 (Free Water) 200 ml Q6HR G-TUBE 01/15/18 18:00 01/20/18 05:31 Albumin Human 250 ml @ 250 mls/hr Q12H IV 01/16/18 11:00 01/21/18 09:00 01/20/18 08:07 Cefepime HCl 2000 mg/Sodium Chloride 100 ml @ 200 mls/hr Q12H IV 01/16/18 14:00 01/22/18 11:59 01/20/18 02:00 (Zyvox) 600 mg Q12HR PO 01/16/18 12:45 01/20/18 08:07 (Lasix Inj) 40 mg DAILY IV PUSH 01/20/18 09:00 01/20/18 08:07 Lines Line sites with no e.o infection. Past Medical History Reviewed Allergies: Coded Allergies: No Known Allergies (Unverified , 04/20/17) Objective . Vital Signs Date Time Temp Pulse Resp B/P (MAP) Pulse Ox O2 Delivery O2 Flow Rate FiO2 01/20/18 09:12 40 01/20/18 09:12 96 40 01/20/18 08:00 98.4 64 14 72/ 95 01/20/18 08:00 40 01/20/18 04:19 95 40 01/20/18 04:00 97.7 82 16 159/82 (107) 95 01/20/18 04:00 40 01/20/18 01:20 95 40 01/20/18 00:00 97.7 85 16 163/83 (109) 95 01/19/18 21:33 95 40 01/19/18 20:00 97.8 85 16 158/65 (96) 94 01/19/18 20:00 40 01/19/18 16:23 94 40 01/19/18 16:01 40 01/19/18 16:00 98.0 76 12 149/70 (96) 94 01/19/18 15:45 40 01/19/18 12:00 98.8 70 12 133/80 (97) 92 01/19/18 11:52 97 40 . Laboratory Tests Test 01/19/18 08:50 White Blood Count 18.3 TH/MM3 Red Blood Count 2.75 MIL/MM3 Hemoglobin 8.8 GM/DL Hematocrit 26.2 % Mean Corpuscular Volume 95.0 FL Mean Corpuscular Hemoglobin 32.0 PG Mean Corpuscular Hemoglobin Concent 33.7 % Red Cell Distribution Width 16.2 % Platelet Count 406 TH/MM3 Mean Platelet Volume 8.8 FL Neutrophils (%) (Auto) 79.0 % Lymphocytes (%) (Auto) 10.8 % Monocytes (%) (Auto) 5.7 % Eosinophils (%) (Auto) 3.6 % Basophils (%) (Auto) 0.9 % Neutrophils # (Auto) 14.4 TH/MM3 Lymphocytes # (Auto) 2.0 TH/MM3 Monocytes # (Auto) 1.0 TH/MM3 Eosinophils # (Auto) 0.6 TH/MM3 Basophils # (Auto) 0.2 TH/MM3 CBC Comment AUTO DIFF Differential Total Cells Counted 100 Neutrophils % (Manual) 78 % Band Neutrophils % 5 % Lymphocytes % 10 % Eosinophils % 4 % Basophils % 1 % Neutrophils # (Manual) 15.6 TH/MM3 Myelocytes 2 % Differential Comment FINAL DIFF MANUAL Platelet Estimate HIGH Platelet Morphology Comment NORMAL Laboratory Tests Test 01/19/18 08:50 01/20/18 08:24 Blood Urea Nitrogen 65 MG/DL 64 MG/DL Creatinine 1.62 MG/DL 1.71 MG/DL Random Glucose 183 MG/DL 136 MG/DL Calcium Level 9.2 MG/DL 8.9 MG/DL Sodium Level 139 MEQ/L 139 MEQ/L Potassium Level 2.8 MEQ/L 3.4 MEQ/L Chloride Level 106 MEQ/L 107 MEQ/L Carbon Dioxide Level 21.6 MEQ/L 19.9 MEQ/L Anion Gap 11 MEQ/L 12 MEQ/L Estimat Glomerular Filtration Rate 31 ML/MIN 29 ML/MIN Albumin 2.4 GM/DL Phosphorus Level 1.5 MG/DL Imaging Chest X-Ray 01/16/18 0000 Signed Impressions: Service Date/Time: Tuesday, January 16, 2018 07:52 - CONCLUSION: 1. Diffuse bilateral pulmonary infiltrates and bilateral pleural effusions, unchanged. Findings could represent congestive heart failure is suggested in the clinical history. 2. Stable position of tracheostomy tube. Plain film findings characteristic of a chronic right-sided rotator cuff injury. Ananda Oneill MD Chest X-Ray 01/14/18 0000 Signed Impressions: Service Date/Time: Sunday, January 14, 2018 03:56 - CONCLUSION: Unchanged diffuse pulmonary infiltrates with small effusions. Deangelo Wren Jr., MD Chest X-Ray 01/08/18 0000 Signed Impressions: Service Date/Time: December 03:37 - CONCLUSION: No significant change. Right pleural effusion with bilateral airspace disease right greater than left. Jose R Casanova MD Chest X-Ray 12/21/17 0600 Signed Impressions: Service Date/Time: Thursday, December 21, 2017 05:51 - CONCLUSION: Some improvement in the infiltrates bilaterally. Deangelo Wren Jr., MD Upper Extremity Ultrasound 11/04/17 0000 Signed Impressions: Service Date/Time: Saturday, November 04, 2017 09:57 - CONCLUSION: No thrombus observed. Subcutaneous edema noted. Deangelo Wren Jr., MD Abdomen X-Ray 11/04/17 0000 Signed Impressions: Service Date/Time: Saturday, November 04, 2017 11:58 - CONCLUSION: Gaseous distention of bowel loops could be ileus but unchanged. Benja Ramsey MD CT Angiography 11/01/17 0000 Signed Impressions: Service Date/Time: Wednesday, November 01, 2017 16:47 - CONCLUSION: No evidence for pulmonary embolism. Please see above. Choco Mustafa MD Thoracentesis 08/05/17 1535 Signed Impressions: Service Date/Time: Saturday, August 05, 2017 16:08 - CONCLUSION: Uncomplicated CT-guided thoracentesis. Sage Adler MD Chest Ultrasound 08/02/17 0000 Signed Impressions: Service Date/Time: Tuesday, August 01, 2017 22:06 - CONCLUSION: 1. Moderate right pleural effusion, as above. Alejo De La Vega MD Hip and Pelvis X-Ray 07/09/17 0000 Signed Impressions: Service Date/Time: Sunday, July 09, 2017 14:04 - CONCLUSION: Anatomic alignment. Ricardo Middleton MD FACR Liver Ultrasound 06/19/17 0000 Signed Impressions: Service Date/Time: June 13:20 - CONCLUSION: 1. Mildly increased echotexture of the liver characteristic of hepatic steatosis. 2. Gallbladder sludge. Obdulio Sam MD Head CT 05/15/17 0000 Signed Impressions: Service Date/Time: May 19:59 - CONCLUSION: 1. 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 2. No bleed or new/acute infarct. Obdulio Simms MD Gall Bladder Ultrasound 05/08/17 0000 Signed Impressions: Service Date/Time: May 08:23 - CONCLUSION: Focally unremarkable appearance of the gallbladder Obdulio Chun MD Abdomen/Pelvis CT 05/07/17 0000 Signed Impressions: Service Date/Time: Sunday, May 07, 2017 13:23 - CONCLUSION: 1. Large left pneumothorax. 2. Bilateral lower lobe consolidation and bilateral moderate size pleural effusions. 3. Significant soft tissue thickening of the right lateral chest wall and left gluteus muscle. 4. Mild ascites. The findings were called to Dr. Carney. Deangelo Zamora MD Chest CT 04/30/17 0000 Signed Impressions: Service Date/Time: Sunday, April 30, 2017 09:20 - CONCLUSION: 1. Bilateral pulmonary infiltrates more pronounced within the lower lobes with tiny bilateral pleural effusions. Material seen filling the lower lobe bronchi bilaterally either related to purulent material or perhaps mucus plugging. Deangelo Wren Jr., MD Carotid Artery Ultrasound 04/24/17 0000 Signed Impressions: Service Date/Time: April 09:45 - CONCLUSION: 1. No hemodynamically significant carotid artery stenosis. Arnie Middleton MD Hip X-Ray 04/21/17 0000 Signed Impressions: Service Date/Time: Friday, April 21, 2017 11:36 - CONCLUSION: Fluoroscopic images during placement of intramedullary siomara left femur. Benja Ramsey MD Physical Exam GENERAL: Eyes closed, on the vent, NAD SKIN: Warm and dry. Has varicella rash in L upper chest to back, driving HEAD: Atraumatic. Normocephalic. No temporal wasting, or tenderness. EYES: [place] conjunctiva. No petechia or hemorrhage. Pupils equal, round and reactive to light. No scleral icterus. No injection or drainage. EARS, NOSE AND THROAT: Nose without bleeding or purulent nasal discharge. No sinus tenderness. Mucous membranes pink and moist. NECK: Trachea midline. Trach site ok. Supple and not tender, no meningeal signs CARDIOVASCULAR: Regular rate and rhythm. Soft heart sounds. RESPIRATORY: has bilateral rhonchi worse on R than L. Decreased breath sounds at the bases ABDOMEN: More distended, some grimacing during palpation. Bowel sounds present and normoactive. PEG site ok EXTREMITIES: No clubbing, cyanosis, or edema. Well perfused and warm. NEUROLOGICAL: Eyes closed PSYCHIATRIC: Unable to assess LINE: No evidence of infection : Leavitt in place Assessment & Plan Remarks IMPRESSION Recurrent PNA, mucus plugging New sepsis due to new PNA MDR PSAE and sensitive Serratia Herpes Zoster, finished treatment Fevers, better - ?due to PNA or zoster - ? 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
[2018-01-20] MEDS: INSULIN DETEMIR 100 UNITS/ML VIAL SQ SCH ×3 (12:26→23:14)
[2018-01-20] MEDS: FLUCONAZOLE 100 MG TAB PO SCH (12:28)
--- NOTE | 2018-01-20 14:06 | HHI.PR ---
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 Seen in her bedroom discussed with nurse, no changes to anterior assessment, she is currently on CPAP, continue Lethargic but has some grimacing, no nausea, vomit or diarrhea. Objective Vital Signs Date Time Temp Pulse Resp B/P (MAP) Pulse Ox O2 Delivery O2 Flow Rate FiO2 01/20/18 13:19 94 40 01/20/18 09:12 40 01/20/18 09:12 96 40 01/20/18 08:00 98.4 64 14 72/ 95 01/20/18 08:00 40 01/20/18 04:19 95 40 01/20/18 04:00 97.7 82 16 159/82 (107) 95 01/20/18 04:00 40 01/20/18 01:20 95 40 01/20/18 00:00 97.7 85 16 163/83 (109) 95 01/19/18 21:33 95 40 01/19/18 20:00 97.8 85 16 158/65 (96) 94 01/19/18 20:00 40 01/19/18 16:23 94 40 01/19/18 16:01 40 01/19/18 16:00 98.0 76 12 149/70 (96) 94 01/19/18 15:45 40 I/O 01/19/18 01/19/18 01/19/18 01/20/18 01/20/18 01/20/18 07:00 15:00 23:00 07:00 15:00 23:00 Intake Total 734 ml 670 ml 743 ml Output Total 700 ml 600 ml 800 ml Balance 34 ml 70 ml -57 ml IV Total 100 ml Tube Feeding 384 ml 370 ml 443 ml Other 250 ml 300 ml 300 ml Output Urine Total 700 ml 600 ml 800 ml # Bowel Movements 1 0 Result Diagram: 01/19/18 0850 01/20/18 0824 Imaging Last Impressions Renal Ultrasound 01/16/18 0000 Signed Impressions: Service Date/Time: Tuesday, January 16, 2018 12:01 - CONCLUSION: 1. Mild left- sided hydronephrosis. 2. Right kidney appears unremarkable 3. Nonvisualization of the bladder. Benja Ramsey MD Chest X-Ray 01/16/18 0000 Signed Impressions: Service Date/Time: Tuesday, January 16, 2018 07:52 - CONCLUSION: 1. Diffuse bilateral pulmonary infiltrates and bilateral pleural effusions, unchanged. Findings could represent congestive heart failure is suggested in the clinical history. 2. Stable position of tracheostomy tube. Plain film findings characteristic of a chronic right-sided rotator cuff injury. Ananda Oneill MD Abdomen X-Ray 01/14/18 0000 Signed Impressions: Service Date/Time: Sunday, January 14, 2018 15:26 - CONCLUSION: 1. Air distention of the gastric lumen and small bowel loops with some air identified in the colon. Possible hypodynamic ileus. 2. Degenerative fibroid Ananda Oneill MD Upper Extremity Ultrasound 11/04/17 0000 Signed Impressions: Service Date/Time: Saturday, November 04, 2017 09:57 - CONCLUSION: No thrombus observed. Subcutaneous edema noted. Deangelo Wren Jr., MD CT Angiography 11/01/17 0000 Signed Impressions: Service Date/Time: Wednesday, November 01, 2017 16:47 - CONCLUSION: No evidence for pulmonary embolism. Please see above. Choco Mustafa MD Thoracentesis 08/05/17 1535 Signed Impressions: Service Date/Time: Saturday, August 05, 2017 16:08 - CONCLUSION: Uncomplicated CT-guided thoracentesis. Sage Adler MD Chest Ultrasound 08/02/17 0000 Signed Impressions: Service Date/Time: Tuesday, August 01, 2017 22:06 - CONCLUSION: 1. Moderate right pleural effusion, as above. Alejo De La Vega MD Hip and Pelvis X-Ray 07/09/17 0000 Signed Impressions: Service Date/Time: Sunday, July 09, 2017 14:04 - CONCLUSION: Anatomic alignment. Ricardo Middleton MD FACR Liver Ultrasound 06/19/17 0000 Signed Impressions: Service Date/Time: June 13:20 - CONCLUSION: 1. Mildly increased echotexture of the liver characteristic of hepatic steatosis. 2. Gallbladder sludge. Obdulio Sam MD Head CT 05/15/17 0000 Signed Impressions: Service Date/Time: May 19:59 - CONCLUSION: 1. 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 2. No bleed or new/acute infarct. Obdulio Simms MD Gall Bladder Ultrasound 05/08/17 0000 Signed Impressions: Service Date/Time: May 08:23 - CONCLUSION: Focally unremarkable appearance of the gallbladder Obdulio Chun MD Abdomen/Pelvis CT 05/07/17 0000 Signed Impressions: Service Date/Time: Sunday, May 07, 2017 13:23 - CONCLUSION: 1. Large left pneumothorax. 2. Bilateral lower lobe consolidation and bilateral moderate size pleural effusions. 3. Significant soft tissue thickening of the right lateral chest wall and left gluteus muscle. 4. Mild ascites. The findings were called to Dr. Carney. Deangelo Zamora MD Chest CT 04/30/17 0000 Signed Impressions: Service Date/Time: Sunday, April 30, 2017 09:20 - CONCLUSION: 1. Bilateral pulmonary infiltrates more pronounced within the lower lobes with tiny bilateral pleural effusions. Material seen filling the lower lobe bronchi bilaterally either related to purulent material or perhaps mucus plugging. Deangelo Wren Jr., MD Carotid Artery Ultrasound 04/24/17 0000 Signed Impressions: Service Date/Time: April 09:45 - CONCLUSION: 1. No hemodynamically significant carotid artery stenosis. Arnie Middleton MD Hip X-Ray 04/21/17 0000 Signed Impressions: Service Date/Time: Friday, April 21, 2017 11:36 - CONCLUSION: Fluoroscopic images during placement of intramedullary siomara left femur. Benja Ramsey MD Procedures Tracheostomy 05/15/17 PEG 05/16/17 Other Results Laboratory Tests Test 04/20/17 10:10 04/20/17 16:25 04/21/17 04:50 04/26/17 12:20 Venous Blood pH 7.25 Venous Blood Partial Pressure CO2 53 mmHg Venous Blood Partial Pressure O2 22 mmHg Venous Blood HCO3 23 mmol/L Venous Blood Oxygen Saturation 25 % Venous Blood Oxygen Content 3.7 Vol % Venous Blood Base Excess -3.6 mmol/L Nasal Screen MRSA (PCR) MRSA NOT DETECTED 25-Hydroxy Vitamin D Total 27.4 ng/ML B-Hydroxybutyrate 0.93 MMOL/L Urine Yeast (Budding) FEW Test 04/30/17 04:36 05/04/17 09:42 05/07/17 04:21 05/07/17 21:00 Serum Osmolality 345 MOSM/KG Vancomycin Level Trough 23.8 MCG/ML Blood Urea Nitrogen 36 MG/DL Creatinine 0.37 MG/DL Random Glucose 239 MG/DL Total Protein 5.1 GM/DL Albumin 1.5 GM/DL Calcium Level 7.7 MG/DL Alkaline Phosphatase 1931 U/L Aspartate Amino Transf (AST/SGOT) 217 U/L Alanine Aminotransferase (ALT/SGPT) 55 U/L Gamma Glutamyl Transpeptidase 787 U/L Total Bilirubin 1.2 MG/DL Direct Bilirubin 0.8 MG/DL Sodium Level 145 MEQ/L Potassium Level 3.9 MEQ/L Chloride Level 109 MEQ/L Carbon Dioxide Level 27.8 MEQ/L Lactate Dehydrogenase 532 U/L Amylase Level 21 U/L Lipase 48 U/L Test 05/08/17 04:44 05/08/17 21:10 05/09/17 14:04 05/11/17 04:55 Stomatocytes 1+ Total Alkaline Phosphatase 1484 U/L Alkaline Phosphatase Iso-Intestine 0 % Alkaline Phosphatase Iso-Bone 41 % Alkaline Phosphatase Iso-Liver 59 % Hepatitis A IgM Antibody NEGATIVE Hepatitis B Surface Antigen NEGATIVE Hepatitis B Core IgM Antibody NEGATIVE Hepatitis C Antibody REACTIVE Procalcitonin 0.61 ng/mL Hepatitis C RNA Genotype NOT DETECTED Hepatitis C RNA (PCR) IUs/ml LESS THAN 15 IU/mL Hepatitis C RNA (PCR) log IUs/ml LESS THAN 1.18 Blood Urea Nitrogen 29 MG/DL Creatinine 0.37 MG/DL Random Glucose 200 MG/DL Total Protein 3.1 GM/DL Albumin 0.7 GM/DL Calcium Level 6.6 MG/DL Alkaline Phosphatase 549 U/L Aspartate Amino Transf (AST/SGOT) 30 U/L Alanine Aminotransferase (ALT/SGPT) 14 U/L Total Bilirubin 0.6 MG/DL Direct Bilirubin 0.2 MG/DL Sodium Level 145 MEQ/L Potassium Level 3.7 MEQ/L Chloride Level 106 MEQ/L Carbon Dioxide Level 35.5 MEQ/L Indirect Bilirubin 0.4 MG/DL Test 05/17/17 06:25 07/11/17 03:58 07/20/17 09:32 09/09/17 05:30 Protein Corrected Calcium 8.4 MG/DL Prealbumin 20 MG/DL Urine Amorphous Sediment OCC Urine Mucus FEW /lpf Test 09/30/17 08:08 10/17/17 18:04 10/21/17 09:15 10/24/17 14:41 Toxic Vacuolation PRESENT Promyelocytes 2 % Nucleated Red Blood Cells 1 /100 WBC Castañeda-Moosic Bodies PRESENT Dohle Bodies PRESENT Test 10/28/17 07:27 10/31/17 22:20 11/16/17 09:47 12/05/17 06:58 Polychromasia 2.0 % D-Dimer Quantitative (PE/DVT) 1.94 MG/L FEU Hemoglobin A1c 5.3 % Free Thyroxine 0.79 NG/DL Thyroid Stimulating Hormone 3rd Gen 5.270 uIU/ML Troponin I LESS THAN 0.02 NG/ML Test 12/05/17 07:30 12/21/17 09:16 12/21/17 15:20 12/25/17 07:36 Urine Transitional Epithelial Cells <1 /hpf Urine Hyaline Casts 2 /lpf Total Creatine Kinase 88 U/L Stool C. difficile Toxin (PCR) NEGATIVE Stl C. difficile Toxin Epiderm 027 PRESUMPTIVE NEGATIVE Atypical Lymphocytes % Basophilic Stippling FAINT Test 12/31/17 10:37 12/31/17 20:42 01/11/18 07:23 01/12/18 08:49 Blood Gas Liter Flow 10 L/M Prothrombin Time 11.4 SEC Prothromb Time International Ratio 1.1 RATIO Activated Partial Thromboplast Time 28.3 SEC Blastocytes 1 % Hematology Comments Plasma Cells 1 % Toxic Granulation 1+ Red Cell Morphology Comment NORMAL Test 01/12/18 14:30 01/14/18 14:30 01/16/18 08:24 01/16/18 23:04 M. tuberculosis Complex DNA (PCR) NOT DETECTED Urine Color DARK-YELLOW Urine Turbidity CLOUDY Urine pH 5.0 Urine Specific Calder 1.026 Urine Protein 30 mg/dL Urine Glucose (UA) NEG mg/dL Urine Ketones 10 mg/dL Urine Occult Blood SMALL Urine Nitrite NEG Urine Bilirubin NEG Urine Urobilinogen LESS THAN 2.0 MG/DL Urine Leukocyte Esterase LARGE Urine RBC 15 /hpf Urine WBC /hpf Urine WBC Clumps FEW Urine Squamous Epithelial Cells 18 /hpf Urine Bacteria FEW /hpf Microscopic Urinalysis Comment CATH-CULTURE IND Lactic Acid Level 1.3 mmol/L B-Type Natriuretic Peptide 1362 PG/ML Blood Gas Puncture Site RT RADIAL Blood Gas Patient Temperature 98.6 Blood Gas HCO3 21 mmol/L Blood Gas Base Excess -2.8 mmol/L Blood Gas Oxygen Saturation 96 % Arterial Blood pH 7.39 Arterial Blood Partial Pressure CO2 36 mmHg Arterial Blood Partial Pressure O2 109 mmHg Arterial Blood Oxygen Content 10.7 Vol % Arterial Blood Carboxyhemoglobin 1.4 % Arterial Blood Methemoglobin 1.2 % Blood Gas Hemoglobin 7.8 G/DL Oxygen Delivery Device VENTILATOR Blood Gas Ventilator Setting AC 16/500/5PEEP Blood Gas Inspired Oxygen 45 % Test 01/17/18 04:58 01/19/18 08:50 01/20/18 08:24 Monocytes % 4 % Metamyelocytes 1 % Blood Urea Nitrogen 66 MG/DL 64 MG/DL Creatinine 1.57 MG/DL 1.71 MG/DL Random Glucose 130 MG/DL 136 MG/DL Total Protein 6.2 GM/DL Albumin 2.0 GM/DL 2.4 GM/DL Calcium Level 9.1 MG/DL 8.9 MG/DL Phosphorus Level 4.1 MG/DL 1.5 MG/DL Magnesium Level 2.2 MG/DL Alkaline Phosphatase 317 U/L Aspartate Amino Transf (AST/SGOT) 21 U/L Alanine Aminotransferase (ALT/SGPT) 23 U/L Total Bilirubin 0.3 MG/DL Sodium Level 137 MEQ/L 139 MEQ/L Potassium Level 4.1 MEQ/L 3.4 MEQ/L Chloride Level 103 MEQ/L 107 MEQ/L Carbon Dioxide Level 21.1 MEQ/L 19.9 MEQ/L White Blood Count 18.3 TH/MM3 Red Blood Count 2.75 MIL/MM3 Hemoglobin 8.8 GM/DL Hematocrit 26.2 % Mean Corpuscular Volume 95.0 FL Mean Corpuscular Hemoglobin 32.0 PG Mean Corpuscular Hemoglobin Concent 33.7 % Red Cell Distribution Width 16.2 % Platelet Count 406 TH/MM3 Mean Platelet Volume 8.8 FL Neutrophils (%) (Auto) 79.0 % Lymphocytes (%) (Auto) 10.8 % Monocytes (%) (Auto) 5.7 % Eosinophils (%) (Auto) 3.6 % Basophils (%) (Auto) 0.9 % Neutrophils # (Auto) 14.4 TH/MM3 Lymphocytes # (Auto) 2.0 TH/MM3 Monocytes # (Auto) 1.0 TH/MM3 Eosinophils # (Auto) 0.6 TH/MM3 Basophils # (Auto) 0.2 TH/MM3 CBC Comment AUTO DIFF Differential Total Cells Counted 100 Neutrophils % (Manual) 78 % Band Neutrophils % 5 % Lymphocytes % 10 % Eosinophils % 4 % Basophils % 1 % Neutrophils # (Manual) 15.6 TH/MM3 Myelocytes 2 % Differential Comment FINAL DIFF MANUAL Platelet Estimate HIGH Platelet Morphology Comment NORMAL Anion Gap 12 MEQ/L Estimat Glomerular Filtration Rate 29 ML/MIN Objective Remarks GENERAL:Lethargic do not follow commands. has some grimacing. SKIN: Warm and dry. HEAD: Normocephalic. EYES: No scleral icterus. No injection or drainage. NECK: Supple, trachea midline. No JVD or lymphadenopathy. T piece in place, no redness over trach insertion site. CARDIOVASCULAR: Regular rate and rhythm without murmurs, gallops, or rubs. RESPIRATORY: Decreased breath sounds at the bases. GASTROINTESTINAL: Abdomen soft, non-tender, nondistended. MUSCULOSKELETAL: No cyanosis, or edema. BACK: Nontender without obvious deformity. No CVA tenderness. Medications and IVs Current Medications Medications (Trade) Dose Ordered Sig/Zeferino Route Start Time Stop Time Status Last Admin (Narcan Inj) 0.4 mg UNSCH PRN IV 04/20/17 17:15 (Prevacid Odt) 30 mg DAILY NG 05/08/17 09:00 01/20/18 08:05 (Pill Splitter) 1 ea UNSCH PRN OTHER 09/05/17 11:00 (Apresoline) 10 mg Q8HR PEG 09/24/17 14:00 01/20/18 12:29 (Norvasc) 10 mg DAILY PEG 10/04/17 09:00 Future Hold 01/15/18 07:46 (Oscal-D 250-125) 250 mg TID PEG 10/03/17 13:00 01/20/18 12:27 (Vitamin D3) 5,000 units DAILY PEG 10/04/17 09:00 01/20/18 08:07 (Albuterol Neb) 2.5 mg Q2HR NEB PRN NEB 10/03/17 21:45 01/15/18 19:20 (Tylenol 650 Mg/ 20 ml Liq) 650 mg Q6H PRN PEG 10/26/17 06:45 01/13/18 00:03 (D50w (Vial) Inj) 50 ml UNSCH PRN IV PUSH 11/04/17 12:30 01/03/18 14:03 (Glucagon Inj) 1 mg UNSCH PRN OTHER 11/04/17 12:30 (NovoLIN R SUPPLEMENTAL SCALE) 1 Q6H SQ 11/04/17 12:30 01/20/18 12:26 (Prinivil) 5 mg DAILY PEG 11/23/17 09:00 Future Hold 01/15/18 07:46 (Zofran Inj) 4 mg Q6HR PRN IV PUSH 12/08/17 05:00 01/17/18 00:24 (Tears Naturale Opth Soln) 1 drop Q8H PRN EACH EYE 12/19/17 19:30 01/10/18 09:11 (Questran Light Pkt) 4 gm BID PEG 12/25/17 09:00 01/20/18 08:07 (Levemir Inj) 7 units Q12H SQ 01/04/18 00:00 01/20/18 12:26 (Coly-Mycin M Neb) 75 mg BID NEB NEB 01/07/18 12:00 01/20/18 09:12 (Lactinex) 1 tab TID PEG 01/10/18 13:00 01/20/18 12:29 (Fiber Con) 625 mg Q12HR PEG 01/10/18 21:00 01/20/18 08:07 (Lomotil 2.5-0.025 Mg Liq) 5 ml Q6H PRN PEG 01/10/18 12:15 (Roxicodone Intensol Liq) 5 mg Q6H PRN PEG 01/10/18 12:15 01/15/18 20:03 (Neurontin) 100 mg TID PRN PO 01/10/18 12:30 01/11/18 09:51 (Diflucan) 100 mg Q24H PO 01/14/18 14:00 01/23/18 23:00 01/20/18 12:28 (Reglan Liq) 10 mg TID G-TUBE 01/15/18 18:00 01/20/18 12:28 (Free Water) 200 ml Q6HR G-TUBE 01/15/18 18:00 01/20/18 11:59 Albumin Human 250 ml @ 250 mls/hr Q12H IV 01/16/18 11:00 01/21/18 09:00 01/20/18 08:07 Cefepime HCl 2000 mg/Sodium Chloride 100 ml @ 200 mls/hr Q12H IV 01/16/18 14:00 01/25/18 23:00 01/20/18 12:00 (Zyvox) 600 mg Q12HR PO 01/16/18 12:45 01/25/18 23:00 01/20/18 08:07 (Lasix Inj) 40 mg DAILY IV PUSH 01/20/18 09:00 01/20/18 08:07 A/P Assessment and Plan (1) Acute ischemic left middle cerebral artery (MCA) stroke ICD Code: I63.512 - Cerebral infarction due to unspecified occlusion or stenosis of left middle cerebral artery Status: Acute (2) Acute respiratory failure ICD Code: J96.00 - Acute respiratory failure, unspecified whether with hypoxia or hypercapnia Status: Resolved (3) Right hemiplegia ICD Code: G81.91 - Hemiplegia, unspecified affecting right dominant side Status: Acute (4) Sacral decubitus ulcer ICD Code: L89.159 - Pressure ulcer of sacral region, unspecified stage Status: Chronic (5) HCAP (healthcare-associated pneumonia) ICD Code: J18.9 - Pneumonia, unspecified organism Status: Resolved (6) 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 She underwent ORIF on 04/21/17 and on 04/24 a stroke alert was called as she was found to have right hemiparesis with left gaze. She has a poor prognosis based on her lack of overall recovery over the last 6+ months. Pulmonary edema -resolved chest x-ray done 11/13/2017, evidence of pulmonary edema, continue Lasix, monitor BMP every few weeks. 12/03 Chest x-ray on shows bilateral hazy airspace disease overall improved from November 13. Cardiomegaly. Left MCA stroke 5.5 mm of [id number] subfalcine herniation, diagnosed 04/24. Was not a candidate for thrombolysis at that time. Increasing edema seen on repeat CT 04/28 with a reduction in midline shift on another repeat on 04/30 Neurologic condition remained poor and she underwent trach 05/15/17 and PEG Persistent right-sided hemiparesis. Previously seen by neurology, signed off Previously seen by neurosurgery, signed off Continue daily ASA at this time patient not moving any extremity. Hypertension / CHF Order chest x-ray on 01/16/18 secondary to worsening leukocytosis. Chest x- ray reviewed by me shows diffuse bilateral pulmonary infiltrates and bilateral pleural effusions. Stable position of tracheostomy tube. Nephrology following and giving IV Lasix 40 mg BID. Albumin. Chronic Tracheostomy /respiratory failure 10/22/2017 Pulmonary toilet, trach care Duo nebs as needed Pulm following, appreciate assistance. Currently on CPAP. Large left pneumothorax Resolved Chest tube placed 05/07, discontinued 05/12/17 Hepatitis C LFTs normalized Negative genotype/viral load Diabetes mellitus SSI Novolin R High-dose scale, Detemir to 8 units BID. FEN PEG tube feeding with Glucerna 1.5 goal 45 cc/hr, per nutrition recommendations Anal Fissure continue wound care Bradycardia Improved. Upon review of records the patient was recently evaluated by radiology due to bradycardia on 11/19/17. At the time cardiology recommended observation and avoidance of AV du blocking agents. EKG obtained on 12/02 shows sinus rhythm with moderate T-wave abnormalities on anterolateral leads. Hypokalemia replacing again today by Nephrology specialist, discontinued Furosemide and continue Albumin. 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 Acute kidney injury Nephrology following. Creatinine 1.71 DVT prophylaxis Heparin Discharge Planning Very poor prognosis. Appreciate palliative care efforts. Calvin Gerardo MD January 20, 2018 14:06
--- NOTE | 2018-01-20 18:21 | HHI.PR ---
Subjective Remarks . Tolerates TF to goal rate No fever Moderate amount of thick mucous BAL positive for AFB PCR Neg for MTB Weaned to CPAP 13/01, Fi02 40% TF 45cc /hr Objective Vital Signs Vital Signs Date Time Temp Pulse Resp B/P (MAP) Pulse Ox O2 Delivery O2 Flow Rate FiO2 01/20/18 18:06 98.2 56 14 148/75 (99) 99 01/20/18 18:04 40 01/20/18 15:54 96 40 01/20/18 14:48 40 01/20/18 13:19 94 40 01/20/18 12:00 99.0 64 147/77 (100) 95 01/20/18 09:12 40 01/20/18 09:12 96 40 01/20/18 08:00 98.4 64 14 110/72 (85) 95 01/20/18 08:00 40 01/20/18 04:19 95 40 01/20/18 04:00 97.7 82 16 159/82 (107) 95 01/20/18 04:00 40 01/20/18 01:20 95 40 01/20/18 00:00 97.7 85 16 163/83 (109) 95 01/19/18 21:33 95 40 01/19/18 20:00 97.8 85 16 158/65 (96) 94 01/19/18 20:00 40 I/O 01/19/18 01/19/18 01/19/18 01/20/18 01/20/18 01/20/18 07:00 15:00 23:00 07:00 15:00 23:00 Intake Total 734 ml 670 ml 743 ml 700 ml Output Total 700 ml 600 ml 800 ml 400 ml Balance 34 ml 70 ml -57 ml 300 ml IV Total 100 ml Tube Feeding 384 ml 370 ml 443 ml 400 ml Other 250 ml 300 ml 300 ml 300 ml Output Urine Total 700 ml 600 ml 800 ml 400 ml # Bowel Movements 1 0 0 Result Diagram: 01/19/18 0850 01/20/18 0824 Objective Remarks GENERAL: Elderly female,NAD SKIN: Warm and dry. HEAD: Normocephalic. EYES: No scleral icterus. No injection or drainage. NECK: Supple, trachea midline. No JVD or lymphadenopathy. + trach CARDIOVASCULAR: Regular rate and rhythm without murmurs, gallops, or rubs. RESPIRATORY: Breath sounds equal bilaterally. No accessory muscle use. GASTROINTESTINAL: Abdomen soft, non-tender, nondistended. MUSCULOSKELETAL: No cyanosis, or edema. BACK: Nontender without obvious deformity. No CVA tenderness. A/P Assessment and Plan Chronic resp failure, ,S/P Trach CVA Pneumonia Calcified Granuloma LLL Pseudomonas Tracheobronchitis, AFB Positive in BAL, PCR negative for MTB PLAN: Vent support , Cont CPAP Bronchodilators, IVF GI/DVT prophylaxis IV Zosyn Colistin Nebs Monitor renal functions. Replace Christel+ Chris Rizo MD January 20, 2018 18:21
[2018-01-21] VITALS (12 sets, daily range): BP systolic 137–179; BP diastolic 65–86; PULSE 49–98; RESP 16–22; TEMP 97.9–98.9; O2SAT 93–99
[2018-01-21] MEDS: CEFEPIME INJ 2,000 MG in SODIUM CHLORIDE 0.9% INJ 100 ML IV SCH ×2 (02:02→14:00)
[2018-01-21] MEDS: FREE WATER G-TUBE SCH ×3 (05:25→17:56)
[2018-01-21] MEDS: hydrALAZINE HCL 10 MG TAB PEG SCH ×3 (05:28→20:45)
[2018-01-21] MEDS: INSULIN NovoLIN REGULAR SUPPLEMENTAL SCALE SQ SCH ×3 (05:28→17:56)
[2018-01-21 08:15] LABS: ALBUMIN 2.7 GM/DL (3.4-5.0); BICARBONATE 19.6 MEQ/L (21.0-32.0); CALCIUM 9.2 MG/DL (8.5-10.1); CREATININE 2.05 MG/DL (0.50-1.00); PHOSPHORUS 1.5 MG/DL (2.5-4.9)
[2018-01-21] MEDS: CALCIUM/VITAMIN D 250 MG/125 U TAB PEG SCH ×3 (09:00→17:56)
[2018-01-21] MEDS ORDERED: POTASSIUM PHOSPHATE MONOBASIC 500 MG TAB PO ONE (09:00)
[2018-01-21] MEDS: CALCIUM POLYCARBOPHIL 625 MG TAB PEG SCH ×2 (09:00→21:00)
[2018-01-21] MEDS: FUROSEMIDE 40 MG/4 ML VIAL IV PUSH SCH ×2 (09:00→11:44)
[2018-01-21] MEDS: METOCLOPRAMIDE HCL SYRUP 10 MG/10 ML UDC G-TUBE SCH ×3 (09:00→17:56)
[2018-01-21] MEDS: CHOLECALCIFEROL (VIT D3) 5000 UNIT CAP PEG SCH (09:00)
[2018-01-21] MEDS: LANSOPRAZOLE SOLUTAB 30 MG TAB NG SCH (09:00)
[2018-01-21] MEDS: LACTOBACILLUS ACIDOPHILUS TAB PEG SCH ×3 (09:00→17:56)
[2018-01-21] MEDS: CHOLESTYRAMINE LIGHT 4 GM PACKAGE PEG SCH ×2 (09:00→20:45)
[2018-01-21] MEDS: LINEZOLID 600 MG TAB PO SCH ×2 (09:00→20:46)
[2018-01-21] MEDS: RESP: COLISTIN 150 MG VIAL NEB SCH ×2 (09:07→20:59)
--- NOTE | 2018-01-21 09:42 | HHI.NPPN ---
Subjective Renal Failure: Acute Interval History On CPAP trial on vent. Unresponsive. Renal function is worse. (Dawn Cain) Review of Systems General General Remarks unable to evaluate (Dawn Cain) Objective Data Data Vital Signs Date Time Temp Pulse Resp B/P (MAP) Pulse Ox O2 Delivery O2 Flow Rate FiO2 01/21/18 09:07 97 40 01/21/18 06:00 40 01/21/18 04:00 18 01/21/18 03:27 98.9 94 18 148/81 (103) 96 01/21/18 00:00 98.9 96 18 137/65 (89) 96 01/21/18 00:00 40 01/20/18 20:52 96 40 01/20/18 20:00 40 01/20/18 20:00 98.9 96 18 149/79 (102) 96 01/20/18 18:06 98.2 56 14 148/75 (99) 99 01/20/18 18:04 40 01/20/18 15:54 96 40 01/20/18 14:48 40 01/20/18 13:19 94 40 01/20/18 12:00 99.0 64 147/77 (100) 95 (Dawn Cain) -: 01/19/18 0850 01/21/18 0721 Imaging Last Impressions Renal Ultrasound 01/16/18 0000 Signed Impressions: Service Date/Time: Tuesday, January 16, 2018 12:01 - CONCLUSION: 1. Mild left- sided hydronephrosis. 2. Right kidney appears unremarkable 3. Nonvisualization of the bladder. Benja Ramsey MD Chest X-Ray 01/16/18 0000 Signed Impressions: Service Date/Time: Tuesday, January 16, 2018 07:52 - CONCLUSION: 1. Diffuse bilateral pulmonary infiltrates and bilateral pleural effusions, unchanged. Findings could represent congestive heart failure is suggested in the clinical history. 2. Stable position of tracheostomy tube. Plain film findings characteristic of a chronic right-sided rotator cuff injury. Ananda Oneill MD Abdomen X-Ray 01/14/18 0000 Signed Impressions: Service Date/Time: Sunday, January 14, 2018 15:26 - CONCLUSION: 1. Air distention of the gastric lumen and small bowel loops with some air identified in the colon. Possible hypodynamic ileus. 2. Degenerative fibroid Ananda Oneill MD Upper Extremity Ultrasound 11/04/17 0000 Signed Impressions: Service Date/Time: Saturday, November 04, 2017 09:57 - CONCLUSION: No thrombus observed. Subcutaneous edema noted. Deangelo Wren Jr., MD CT Angiography 11/01/17 0000 Signed Impressions: Service Date/Time: Wednesday, November 01, 2017 16:47 - CONCLUSION: No evidence for pulmonary embolism. Please see above. Choco Mustafa MD Thoracentesis 08/05/17 1535 Signed Impressions: Service Date/Time: Saturday, August 05, 2017 16:08 - CONCLUSION: Uncomplicated CT-guided thoracentesis. Sage Adler MD Chest Ultrasound 08/02/17 0000 Signed Impressions: Service Date/Time: Tuesday, August 01, 2017 22:06 - CONCLUSION: 1. Moderate right pleural effusion, as above. Alejo De La Vega MD Hip and Pelvis X-Ray 07/09/17 0000 Signed Impressions: Service Date/Time: Sunday, July 09, 2017 14:04 - CONCLUSION: Anatomic alignment. Ricardo Middleton MD FACR Liver Ultrasound 06/19/17 0000 Signed Impressions: Service Date/Time: June 13:20 - CONCLUSION: 1. Mildly increased echotexture of the liver characteristic of hepatic steatosis. 2. Gallbladder sludge. Obdulio Sam MD Head CT 05/15/17 0000 Signed Impressions: Service Date/Time: May 19:59 - CONCLUSION: 1. 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 2. No bleed or new/acute infarct. Obdulio Simms MD Gall Bladder Ultrasound 05/08/17 0000 Signed Impressions: Service Date/Time: May 08:23 - CONCLUSION: Focally unremarkable appearance of the gallbladder Obdulio Chun MD Abdomen/Pelvis CT 05/07/17 0000 Signed Impressions: Service Date/Time: Sunday, May 07, 2017 13:23 - CONCLUSION: 1. Large left pneumothorax. 2. Bilateral lower lobe consolidation and bilateral moderate size pleural effusions. 3. Significant soft tissue thickening of the right lateral chest wall and left gluteus muscle. 4. Mild ascites. The findings were called to Dr. Carney. Deangelo Zamora MD Chest CT 04/30/17 0000 Signed Impressions: Service Date/Time: Sunday, April 30, 2017 09:20 - CONCLUSION: 1. Bilateral pulmonary infiltrates more pronounced within the lower lobes with tiny bilateral pleural effusions. Material seen filling the lower lobe bronchi bilaterally either related to purulent material or perhaps mucus plugging. Deangelo Wren Jr., MD Carotid Artery Ultrasound 04/24/17 0000 Signed Impressions: Service Date/Time: April 09:45 - CONCLUSION: 1. No hemodynamically significant carotid artery stenosis. Arnie Middleton MD Hip X-Ray 04/21/17 0000 Signed Impressions: Service Date/Time: Friday, April 21, 2017 11:36 - CONCLUSION: Fluoroscopic images during placement of intramedullary siomara left femur. Benja Ramsey MD Tubes & Lines: [place] Tubes & Lines Comment trach (Dawn Cain B. DOCTOR ASSISTANT) Physical Exam General Appearance: Well Developed, No Acute Distress (AntDawn B. DOCTOR ASSISTANT) Ears & Nose Ears & Nose Exam: Nasal Mucosa [place] (Manuel Cainon B. DOCTOR ASSISTANT) Throat Throat Remarks trach/vent (AntDawn B. DOCTOR ASSISTANT) Neck Neck Exam: Neck Supple (AntDawn B. DOCTOR ASSISTANT) Pulmonary Resp Exam: Clear Bilaterally, Breath Sounds Equal, Diminished Breath Sounds Resp Remarks vented (AntDawn B. DOCTOR ASSISTANT) Cardiology CV Exam: Regular, Normal Sinus Rhythm (AntDawn B. DOCTOR ASSISTANT) Gastrointestinal/Abdomen GI Exam: Non-Tender, Bowel Sounds Present, Distended GI Remarks firm abdomen, distended. (AntDawn B. DOCTOR ASSISTANT) Genitourinary Exam: Clear Urine (AntDawn B. DOCTOR ASSISTANT) Musculoskeletal MS Exam: Atrophy, Unable to Ambulate MS Remarks right muscle rigidity left side without purposeful movements (AntDawn B. DOCTOR ASSISTANT) Integumentary Skin Exam: Dry, Intact (Dawn Cain B. DOCTOR ASSISTANT) Extremeties Extremities Exam: Pedal Pulses Palpable, Trace Edema (Dawn Cain) Neurologic Neuro Remarks eyes closed, opens spontaneously. No tracking right side hemiparesis with rigidity (Dawn Cain) VTE Prophylaxis Device: SCDs (Dawn Cain) Assessment/Plan Assessment Summary: MIRIAM/Acute Renal Failure, Fluid/Volume Overload Problem List: (1) Acute kidney failure ICD Codes: N17.9 - Acute kidney failure, unspecified Plan: Normal renal function at baseline MIRIAM developed from the , Etiologies include ATN due to hypotension/ hypoperfusion, and infection/sepsis. Renal US showing mild right hydronephrosis, CT abd/pelvis without contrast ordered for today. May also have developed allergic interstitial nephritis Has extensive edema, continue Lasix once daily. Also on albumin. Monitor labs, also monitor urine output. Leav[place] is in place. Avoid nephrotoxic agents. Lisinopril being held. Replace phosphorus and potassium again today, other electrolytes as needed (2) HCAP (healthcare-associated pneumonia) ICD Codes: J18.9 - Pneumonia, unspecified organism Status: Resolved Plan: With sepsis. ID has evaluated,On cefepime, Diflucan, and Zyvox. Antibiotics x 10 days (3) UTI (urinary tract infection) ICD Codes: N39.0 - Urinary tract infection, site not specified Status: Acute Plan: ID following, managing antibiotics On PO difulcan (4) Chronic respiratory failure ICD Codes: J96.10 - Chronic respiratory failure, unspecified whether with hypoxia or hypercapnia Status: Chronic Plan: Unsuccessful vent weening Being treated for pneumonia, see above (5) Hypokalemia ICD Codes: E87.6 - Hypokalemia Plan: Previously hyperkalemic Replacement ordered via PEG Change tube feeding to Glucerna (6) Hyperkalemia ICD Codes: E87.5 - Hyperkalemia Plan: Corrected, see above (Dawn Cain) Plan patient was seen and examined. Renal function is worsening. May have AIN. Prognosis is poor. (Claudy David MD) Problem Qualifiers (1) UTI (urinary tract infection): Qualified Codes: N39.0 - Urinary tract infection, site not specified (2) Chronic respiratory failure: Qualified Codes: J96.11 - Chronic respiratory failure with hypoxia Dawn Cain January 21, 2018 09:42 Claudy David MD January 21, 2018 10:39
[2018-01-21] MEDS: oxyCODONE HCL ORAL CONC 5 MG/0.25 ML SYRINGE PEG PRN (11:44)
[2018-01-21] MEDS: INSULIN DETEMIR 100 UNITS/ML VIAL SQ SCH (12:00)
--- NOTE | 2018-01-21 12:50 | HHI.PR ---
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 has Hepes Zoster finished treatment, Previous Rx for aspiration pneumonia, persistent Leukocytosis, worsening renal function Left hip status post ORIF. 01/21: Stable in her bedroom, ID specialist following, discussed with nurse Miss Yañez, recommended to continue Cefepime Colistin Nebulizer, Diflucan and Zyvox for positive urine culture plan for 10 days. No nausea, vomit or diarrhea. Objective Vital Signs Date Time Temp Pulse Resp B/P (MAP) Pulse Ox O2 Delivery O2 Flow Rate FiO2 01/21/18 09:07 97 40 01/21/18 08:00 40 01/21/18 08:00 98.0 94 20 177/86 (116) 01/21/18 06:00 40 01/21/18 04:00 18 01/21/18 03:27 98.9 94 18 148/81 (103) 96 01/21/18 00:00 98.9 96 18 137/65 (89) 96 01/21/18 00:00 40 01/20/18 20:52 96 40 01/20/18 20:00 40 01/20/18 20:00 98.9 96 18 149/79 (102) 96 01/20/18 18:06 98.2 56 14 148/75 (99) 99 01/20/18 18:04 40 01/20/18 15:54 96 40 01/20/18 14:48 40 01/20/18 13:19 94 40 I/O 01/20/18 01/20/18 01/20/18 01/21/18 01/21/18 01/21/18 07:00 15:00 23:00 07:00 15:00 23:00 Intake Total 743 ml 700 ml 863 ml Output Total 800 ml 400 ml 800 ml Balance -57 ml 300 ml 63 ml Tube Feeding 443 ml 400 ml 563 ml Other 300 ml 300 ml 300 ml Output Urine Total 800 ml 400 ml 800 ml # Bowel Movements 0 0 1 Result Diagram: 01/19/18 0850 01/21/18 0721 Imaging Last Impressions Renal Ultrasound 01/16/18 0000 Signed Impressions: Service Date/Time: Tuesday, January 16, 2018 12:01 - CONCLUSION: 1. Mild left- sided hydronephrosis. 2. Right kidney appears unremarkable 3. Nonvisualization of the bladder. Benja Ramsey MD Chest X-Ray 01/16/18 0000 Signed Impressions: Service Date/Time: Tuesday, January 16, 2018 07:52 - CONCLUSION: 1. Diffuse bilateral pulmonary infiltrates and bilateral pleural effusions, unchanged. Findings could represent congestive heart failure is suggested in the clinical history. 2. Stable position of tracheostomy tube. Plain film findings characteristic of a chronic right-sided rotator cuff injury. Ananda Oneill MD Abdomen X-Ray 01/14/18 0000 Signed Impressions: Service Date/Time: Sunday, January 14, 2018 15:26 - CONCLUSION: 1. Air distention of the gastric lumen and small bowel loops with some air identified in the colon. Possible hypodynamic ileus. 2. Degenerative fibroid Ananda Oneill MD Upper Extremity Ultrasound 11/04/17 0000 Signed Impressions: Service Date/Time: Saturday, November 04, 2017 09:57 - CONCLUSION: No thrombus observed. Subcutaneous edema noted. Deangelo Wren Jr., MD CT Angiography 11/01/17 0000 Signed Impressions: Service Date/Time: Wednesday, November 01, 2017 16:47 - CONCLUSION: No evidence for pulmonary embolism. Please see above. Choco Mustafa MD Thoracentesis 08/05/17 1535 Signed Impressions: Service Date/Time: Saturday, August 05, 2017 16:08 - CONCLUSION: Uncomplicated CT-guided thoracentesis. Sage Adler MD Chest Ultrasound 08/02/17 0000 Signed Impressions: Service Date/Time: Tuesday, August 01, 2017 22:06 - CONCLUSION: 1. Moderate right pleural effusion, as above. Alejo De La Vega MD Hip and Pelvis X-Ray 07/09/17 0000 Signed Impressions: Service Date/Time: Sunday, July 09, 2017 14:04 - CONCLUSION: Anatomic alignment. Ricardo Middleton MD FACR Liver Ultrasound 06/19/17 0000 Signed Impressions: Service Date/Time: June 13:20 - CONCLUSION: 1. Mildly increased echotexture of the liver characteristic of hepatic steatosis. 2. Gallbladder sludge. Obdulio Sam MD Head CT 05/15/17 0000 Signed Impressions: Service Date/Time: May 19:59 - CONCLUSION: 1. 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 2. No bleed or new/acute infarct. Obdulio Simms MD Gall Bladder Ultrasound 05/08/17 0000 Signed Impressions: Service Date/Time: May 08:23 - CONCLUSION: Focally unremarkable appearance of the gallbladder Obdulio Chun MD Abdomen/Pelvis CT 05/07/17 0000 Signed Impressions: Service Date/Time: Sunday, May 07, 2017 13:23 - CONCLUSION: 1. Large left pneumothorax. 2. Bilateral lower lobe consolidation and bilateral moderate size pleural effusions. 3. Significant soft tissue thickening of the right lateral chest wall and left gluteus muscle. 4. Mild ascites. The findings were called to Dr. Carney. Deangelo Zamora MD Chest CT 04/30/17 0000 Signed Impressions: Service Date/Time: Sunday, April 30, 2017 09:20 - CONCLUSION: 1. Bilateral pulmonary infiltrates more pronounced within the lower lobes with tiny bilateral pleural effusions. Material seen filling the lower lobe bronchi bilaterally either related to purulent material or perhaps mucus plugging. Deangelo Wren Jr., MD Carotid Artery Ultrasound 04/24/17 0000 Signed Impressions: Service Date/Time: April 09:45 - CONCLUSION: 1. No hemodynamically significant carotid artery stenosis. Arnie Middleton MD Hip X-Ray 04/21/17 0000 Signed Impressions: Service Date/Time: Friday, April 21, 2017 11:36 - CONCLUSION: Fluoroscopic images during placement of intramedullary siomara left femur. Benja Ramsey MD Procedures Tracheostomy 05/15/17 PEG 05/16/17 Other Results Laboratory Tests Test 04/20/17 10:10 04/20/17 16:25 04/21/17 04:50 04/26/17 12:20 Venous Blood pH 7.25 Venous Blood Partial Pressure CO2 53 mmHg Venous Blood Partial Pressure O2 22 mmHg Venous Blood HCO3 23 mmol/L Venous Blood Oxygen Saturation 25 % Venous Blood Oxygen Content 3.7 Vol % Venous Blood Base Excess -3.6 mmol/L Nasal Screen MRSA (PCR) MRSA NOT DETECTED 25-Hydroxy Vitamin D Total 27.4 ng/ML B-Hydroxybutyrate 0.93 MMOL/L Urine Yeast (Budding) FEW Test 04/30/17 04:36 05/04/17 09:42 05/07/17 04:21 05/07/17 21:00 Serum Osmolality 345 MOSM/KG Vancomycin Level Trough 23.8 MCG/ML Blood Urea Nitrogen 36 MG/DL Creatinine 0.37 MG/DL Random Glucose 239 MG/DL Total Protein 5.1 GM/DL Albumin 1.5 GM/DL Calcium Level 7.7 MG/DL Alkaline Phosphatase 1931 U/L Aspartate Amino Transf (AST/SGOT) 217 U/L Alanine Aminotransferase (ALT/SGPT) 55 U/L Gamma Glutamyl Transpeptidase 787 U/L Total Bilirubin 1.2 MG/DL Direct Bilirubin 0.8 MG/DL Sodium Level 145 MEQ/L Potassium Level 3.9 MEQ/L Chloride Level 109 MEQ/L Carbon Dioxide Level 27.8 MEQ/L Lactate Dehydrogenase 532 U/L Amylase Level 21 U/L Lipase 48 U/L Test 05/08/17 04:44 05/08/17 21:10 05/09/17 14:04 05/11/17 04:55 Stomatocytes 1+ Total Alkaline Phosphatase 1484 U/L Alkaline Phosphatase Iso-Intestine 0 % Alkaline Phosphatase Iso-Bone 41 % Alkaline Phosphatase Iso-Liver 59 % Hepatitis A IgM Antibody NEGATIVE Hepatitis B Surface Antigen NEGATIVE Hepatitis B Core IgM Antibody NEGATIVE Hepatitis C Antibody REACTIVE Procalcitonin 0.61 ng/mL Hepatitis C RNA Genotype NOT DETECTED Hepatitis C RNA (PCR) IUs/ml LESS THAN 15 IU/mL Hepatitis C RNA (PCR) log IUs/ml LESS THAN 1.18 Blood Urea Nitrogen 29 MG/DL Creatinine 0.37 MG/DL Random Glucose 200 MG/DL Total Protein 3.1 GM/DL Albumin 0.7 GM/DL Calcium Level 6.6 MG/DL Alkaline Phosphatase 549 U/L Aspartate Amino Transf (AST/SGOT) 30 U/L Alanine Aminotransferase (ALT/SGPT) 14 U/L Total Bilirubin 0.6 MG/DL Direct Bilirubin 0.2 MG/DL Sodium Level 145 MEQ/L Potassium Level 3.7 MEQ/L Chloride Level 106 MEQ/L Carbon Dioxide Level 35.5 MEQ/L Indirect Bilirubin 0.4 MG/DL Test 05/17/17 06:25 07/11/17 03:58 07/20/17 09:32 09/09/17 05:30 Protein Corrected Calcium 8.4 MG/DL Prealbumin 20 MG/DL Urine Amorphous Sediment OCC Urine Mucus FEW /lpf Test 09/30/17 08:08 10/17/17 18:04 10/21/17 09:15 10/24/17 14:41 Toxic Vacuolation PRESENT Promyelocytes 2 % Nucleated Red Blood Cells 1 /100 WBC [place] Bodies PRESENT Dohle Bodies PRESENT Test 10/28/17 07:27 10/31/17 22:20 11/16/17 09:47 12/05/17 06:58 Polychromasia 2.0 % D-Dimer Quantitative (PE/DVT) 1.94 MG/L FEU Hemoglobin A1c 5.3 % Free Thyroxine 0.79 NG/DL Thyroid Stimulating Hormone 3rd Gen 5.270 uIU/ML Troponin I LESS THAN 0.02 NG/ML Test 12/05/17 07:30 12/21/17 09:16 12/21/17 15:20 12/25/17 07:36 Urine Transitional Epithelial Cells <1 /hpf Urine Hyaline Casts 2 /lpf Total Creatine Kinase 88 U/L Stool C. difficile Toxin (PCR) NEGATIVE Stl C. difficile Toxin Epiderm 027 PRESUMPTIVE NEGATIVE Atypical Lymphocytes % Basophilic Stippling FAINT Test 12/31/17 10:37 12/31/17 20:42 01/11/18 07:23 01/12/18 08:49 Blood Gas Liter Flow 10 L/M Prothrombin Time 11.4 SEC Prothromb Time International Ratio 1.1 RATIO Activated Partial Thromboplast Time 28.3 SEC Blastocytes 1 % Hematology Comments Plasma Cells 1 % Toxic Granulation 1+ Red Cell Morphology Comment NORMAL Test 01/12/18 14:30 01/14/18 14:30 01/16/18 08:24 01/16/18 23:04 M. tuberculosis Complex DNA (PCR) NOT DETECTED Urine Color DARK-YELLOW Urine Turbidity CLOUDY Urine pH 5.0 Urine Specific [place] 1.026 Urine Protein 30 mg/dL Urine Glucose (UA) NEG mg/dL Urine Ketones 10 mg/dL Urine Occult Blood SMALL Urine Nitrite NEG Urine Bilirubin NEG Urine Urobilinogen LESS THAN 2.0 MG/DL Urine Leukocyte Esterase LARGE Urine RBC 15 /hpf Urine WBC /hpf Urine WBC Clumps FEW Urine Squamous Epithelial Cells 18 /hpf Urine Bacteria FEW /hpf Microscopic Urinalysis Comment CATH-CULTURE IND Lactic Acid Level 1.3 mmol/L B-Type Natriuretic Peptide 1362 PG/ML Blood Gas Puncture Site RT RADIAL Blood Gas Patient Temperature 98.6 Blood Gas HCO3 21 mmol/L Blood Gas Base Excess -2.8 mmol/L Blood Gas Oxygen Saturation 96 % Arterial Blood pH 7.39 Arterial Blood Partial Pressure CO2 36 mmHg Arterial Blood Partial Pressure O2 109 mmHg Arterial Blood Oxygen Content 10.7 Vol % Arterial Blood Carboxyhemoglobin 1.4 % Arterial Blood Methemoglobin 1.2 % Blood Gas Hemoglobin 7.8 G/DL Oxygen Delivery Device VENTILATOR Blood Gas Ventilator Setting AC 16/500/5PEEP Blood Gas Inspired Oxygen 45 % Test 01/17/18 04:58 01/19/18 08:50 01/21/18 07:21 Monocytes % 4 % Metamyelocytes 1 % Blood Urea Nitrogen 66 MG/DL 71 MG/DL Creatinine 1.57 MG/DL 2.05 MG/DL Random Glucose 130 MG/DL 174 MG/DL Total Protein 6.2 GM/DL Albumin 2.0 GM/DL 2.7 GM/DL Calcium Level 9.1 MG/DL 9.2 MG/DL Phosphorus Level 4.1 MG/DL 1.5 MG/DL Magnesium Level 2.2 MG/DL Alkaline Phosphatase 317 U/L Aspartate Amino Transf (AST/SGOT) 21 U/L Alanine Aminotransferase (ALT/SGPT) 23 U/L Total Bilirubin 0.3 MG/DL Sodium Level 137 MEQ/L 138 MEQ/L Potassium Level 4.1 MEQ/L 3.3 MEQ/L Chloride Level 103 MEQ/L 106 MEQ/L Carbon Dioxide Level 21.1 MEQ/L 19.6 MEQ/L White Blood Count 18.3 TH/MM3 Red Blood Count 2.75 MIL/MM3 Hemoglobin 8.8 GM/DL Hematocrit 26.2 % Mean Corpuscular Volume 95.0 FL Mean Corpuscular Hemoglobin 32.0 PG Mean Corpuscular Hemoglobin Concent 33.7 % Red Cell Distribution Width 16.2 % Platelet Count 406 TH/MM3 Mean Platelet Volume 8.8 FL Neutrophils (%) (Auto) 79.0 % Lymphocytes (%) (Auto) 10.8 % Monocytes (%) (Auto) 5.7 % Eosinophils (%) (Auto) 3.6 % Basophils (%) (Auto) 0.9 % Neutrophils # (Auto) 14.4 TH/MM3 Lymphocytes # (Auto) 2.0 TH/MM3 Monocytes # (Auto) 1.0 TH/MM3 Eosinophils # (Auto) 0.6 TH/MM3 Basophils # (Auto) 0.2 TH/MM3 CBC Comment AUTO DIFF Differential Total Cells Counted 100 Neutrophils % (Manual) 78 % Band Neutrophils % 5 % Lymphocytes % 10 % Eosinophils % 4 % Basophils % 1 % Neutrophils # (Manual) 15.6 TH/MM3 Myelocytes 2 % Differential Comment FINAL DIFF MANUAL Platelet Estimate HIGH Platelet Morphology Comment NORMAL Anion Gap 12 MEQ/L Estimat Glomerular Filtration Rate 24 ML/MIN Objective Remarks GENERAL:Lethargic do not follow commands. has some grimacing. SKIN: Warm and dry. HEAD: Normocephalic. EYES: No scleral icterus. No injection or drainage. NECK: Supple, trachea midline. No JVD or lymphadenopathy. T piece in place, no redness over trach insertion site. CARDIOVASCULAR: Regular rate and rhythm without murmurs, gallops, or rubs. RESPIRATORY: Decreased breath sounds at the bases. GASTROINTESTINAL: Abdomen soft, non-tender, nondistended. MUSCULOSKELETAL: No cyanosis, or edema. BACK: Nontender without obvious deformity. No CVA tenderness. Medications and IVs Current Medications Medications (Trade) Dose Ordered Sig/Zeferino Route Start Time Stop Time Status Last Admin (Narcan Inj) 0.4 mg UNSCH PRN IV 04/20/17 17:15 (Prevacid Odt) 30 mg DAILY NG 05/08/17 09:00 01/21/18 09:00 (Pill Splitter) 1 ea UNSCH PRN OTHER 09/05/17 11:00 (Apresoline) 10 mg Q8HR PEG 09/24/17 14:00 01/21/18 05:28 (Norvasc) 10 mg DAILY PEG 10/04/17 09:00 Future Hold 01/15/18 07:46 (Oscal-D 250-125) 250 mg TID PEG 10/03/17 13:00 01/21/18 09:00 (Vitamin D3) 5,000 units DAILY PEG 10/04/17 09:00 01/21/18 09:00 (Albuterol Neb) 2.5 mg Q2HR NEB PRN NEB 10/03/17 21:45 01/15/18 19:20 (Tylenol 650 Mg/ 20 ml Liq) 650 mg Q6H PRN PEG 10/26/17 06:45 01/13/18 00:03 (D50w (Vial) Inj) 50 ml UNSCH PRN IV PUSH 11/04/17 12:30 01/03/18 14:03 (Glucagon Inj) 1 mg UNSCH PRN OTHER 11/04/17 12:30 (NovoLIN R SUPPLEMENTAL SCALE) 1 Q6H SQ 11/04/17 12:30 01/21/18 05:28 (Prinivil) 5 mg DAILY PEG 11/23/17 09:00 Future Hold 01/15/18 07:46 (Zofran Inj) 4 mg Q6HR PRN IV PUSH 12/08/17 05:00 01/17/18 00:24 (Tears Naturale Opth Soln) 1 drop Q8H PRN EACH EYE 12/19/17 19:30 01/10/18 09:11 (Questran Light Pkt) 4 gm BID PEG 12/25/17 09:00 01/21/18 09:00 (Coly-Mycin M Neb) 75 mg BID NEB NEB 01/07/18 12:00 01/20/18 20:48 (Lactinex) 1 tab TID PEG 01/10/18 13:00 01/21/18 09:00 (Fiber Con) 625 mg Q12HR PEG 01/10/18 21:00 01/21/18 09:00 (Lomotil 2.5-0.025 Mg Liq) 5 ml Q6H PRN PEG 01/10/18 12:15 (Roxicodone Intensol Liq) 5 mg Q6H PRN PEG 01/10/18 12:15 01/21/18 11:44 (Neurontin) 100 mg TID PRN PO 01/10/18 12:30 01/11/18 09:51 (Diflucan) 100 mg Q24H PO 01/14/18 14:00 01/23/18 23:00 01/20/18 12:28 (Reglan Liq) 10 mg TID G-TUBE 01/15/18 18:00 01/21/18 09:00 (Free Water) 200 ml Q6HR G-TUBE 01/15/18 18:00 01/21/18 11:44 Cefepime HCl 2000 mg/Sodium Chloride 100 ml @ 200 mls/hr Q12H IV 01/16/18 14:00 01/25/18 23:00 01/21/18 02:02 (Zyvox) 600 mg Q12HR PO 01/16/18 12:45 01/25/18 23:00 01/21/18 09:00 (Lasix Inj) 40 mg DAILY IV PUSH 01/20/18 09:00 01/21/18 11:44 (Levemir Inj) 8 units Q12H SQ 01/21/18 00:00 01/20/18 23:14 A/P Assessment and Plan (1) Acute ischemic left middle cerebral artery (MCA) stroke ICD Code: I63.512 - Cerebral infarction due to unspecified occlusion or stenosis of left middle cerebral artery Status: Acute (2) Acute respiratory failure ICD Code: J96.00 - Acute respiratory failure, unspecified whether with hypoxia or hypercapnia Status: Resolved (3) Right hemiplegia ICD Code: G81.91 - Hemiplegia, unspecified affecting right dominant side Status: Acute (4) Sacral decubitus ulcer ICD Code: L89.159 - Pressure ulcer of sacral region, unspecified stage Status: Chronic (5) HCAP (healthcare-associated pneumonia) ICD Code: J18.9 - Pneumonia, unspecified organism Status: Resolved (6) 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 She underwent ORIF on 04/21/17 and on 04/24 a stroke alert was called as she was found to have right hemiparesis with left gaze. She has a poor prognosis based on her lack of overall recovery over the last 6+ months. Pulmonary edema -resolved chest x-ray done 11/13/2017, evidence of pulmonary edema, continue Lasix, monitor BMP every few weeks. 12/03 Chest x-ray on shows bilateral hazy airspace disease overall improved from November 13. Cardiomegaly. Left MCA stroke 5.5 mm of [id number] subfalcine herniation, diagnosed 04/24. Was not a candidate for thrombolysis at that time. Increasing edema seen on repeat CT 04/28 with a reduction in midline shift on another repeat on 04/30 Neurologic condition remained poor and she underwent trach 05/15/17 and PEG Persistent right-sided hemiparesis. Previously seen by neurology, signed off Previously seen by neurosurgery, signed off Continue daily ASA at this time patient not moving any extremity. Hypertension / CHF Order chest x-ray on 01/16/18 secondary to worsening leukocytosis. Chest x- ray reviewed by me shows diffuse bilateral pulmonary infiltrates and bilateral pleural effusions. Stable position of tracheostomy tube. Nephrology following and giving IV Lasix 40 mg BID. Albumin. Chronic Tracheostomy /respiratory failure 10/22/2017 Pulmonary toilet, trach care Duo nebs as needed Pulm following, appreciate assistance. Currently on CPAP. Large left pneumothorax Resolved Chest tube placed 05/07, discontinued 05/12/17 Hepatitis C LFTs normalized Negative genotype/viral load Diabetes mellitus SSI Novolin R High-dose scale, Detemir to 8 units BID. FEN PEG tube feeding with Glucerna 1.5 goal 45 cc/hr, per nutrition recommendations Anal Fissure continue wound care Bradycardia Improved. Upon review of records the patient was recently evaluated by radiology due to bradycardia on 11/19/17. At the time cardiology recommended observation and avoidance of AV du blocking agents. EKG obtained on 12/02 shows sinus rhythm with moderate T-wave abnormalities on anterolateral leads. Hypokalemia replacing again today by Nephrology specialist, discontinued Furosemide and continue Albumin. 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 Acute kidney injury Nephrology following. Creatinine 2.05 as per nephrology specialist the patient has ATN due to hypotension and hypoperfusion, and infection/sepsis, Renal US showed Right Hydronephrosis, asked for CT abdomen and Pelvis, for edema is been getting Lasix and Albumin, replaced Phosphorus and Potassium again today. DVT prophylaxis Heparin Discharge Planning Very poor prognosis. Appreciate palliative care efforts. Calvin Gerardo MD January 21, 2018 12:50
[2018-01-21] MEDS: FLUCONAZOLE 100 MG TAB PO SCH (14:00)
--- NOTE | 2018-01-21 20:01 | HHI.PR ---
Subjective Remarks On Vent, AC 16, Fi02 50% No fever Moderate amount of thick mucous BAL positive for AFB PCR Neg for MTB Objective Vital Signs Vital Signs Date Time Temp Pulse Resp B/P (MAP) Pulse Ox O2 Delivery O2 Flow Rate FiO2 01/21/18 16:58 99 50 01/21/18 16:40 94 40 01/21/18 16:00 98.2 64 22 160/70 (100) 01/21/18 16:00 40 01/21/18 12:47 93 40 01/21/18 12:00 98.0 98 20 179/80 (113) 01/21/18 12:00 40 01/21/18 09:09 40 01/21/18 09:07 97 40 01/21/18 08:00 40 01/21/18 08:00 98.0 94 20 177/86 (116) 01/21/18 06:00 40 01/21/18 04:00 18 01/21/18 03:27 98.9 94 18 148/81 (103) 96 01/21/18 00:00 98.9 96 18 137/65 (89) 96 01/21/18 00:00 40 01/20/18 20:52 96 40 I/O 01/20/18 01/20/18 01/20/18 01/21/18 01/21/18 01/21/18 07:00 15:00 23:00 07:00 15:00 23:00 Intake Total 743 ml 700 ml 863 ml 0 ml Output Total 800 ml 400 ml 800 ml 350 ml Balance -57 ml 300 ml 63 ml -350 ml Intake Oral 0 ml Tube Feeding 443 ml 400 ml 563 ml Other 300 ml 300 ml 300 ml Output Urine Total 800 ml 400 ml 800 ml 350 ml # Bowel Movements 0 0 1 0 Result Diagram: 01/19/18 0850 01/21/18 0721 Objective Remarks GENERAL: Elderly female,NAD SKIN: Warm and dry. HEAD: Normocephalic. EYES: No scleral icterus. No injection or drainage. NECK: Supple, trachea midline. No JVD or lymphadenopathy. + trach CARDIOVASCULAR: Regular rate and rhythm without murmurs, gallops, or rubs. RESPIRATORY: Breath sounds equal bilaterally. No accessory muscle use. Decreased BS Right GASTROINTESTINAL: Abdomen soft, non-tender, nondistended. MUSCULOSKELETAL: No cyanosis, or edema. BACK: Nontender without obvious deformity. No CVA tenderness. A/P Assessment and Plan Chronic resp failure, ,S/P Trach CVA Pneumonia Calcified Granuloma LLL Pseudomonas Tracheobronchitis, AFB Positive in BAL, PCR negative for MTB PLAN: Vent support , AC 16, Fi02 50% Bronchodilators, IVF GI/DVT prophylaxis IV Zosyn Colistin Nebs Monitor renal functions. CXr to r/o atelactesis Chris Rizo MD January 21, 2018 20:01
--- NOTE | 2018-01-21 21:26 | RADRPT ---
EXAM DATE: 01/21/2018 9:23 PM EDT AGE/SEX: 77 years / Female INDICATIONS: Respiratory distress. CLINICAL DATA: This is the patient's subsequent encounter. Patient reports that signs and symptoms h ave been present for 2 months and indicates a pain score of Nonresponsive. MEDICAL/SURGICAL HISTORY: . Hypertension. Diabetes mellitus type II. . Tracheostomy. COMPARISON: [facility] [place], CHEST SINGLE AP, 01/16/2018. . FINDINGS: Frontal view of the chest demonstrates persistent diffuse hazy opacity about the right hemithorax and indistinctness of the central bronchopulmonary markings. The severity of findings is similar to prio r. Central infiltrates in the left lung without peripheral consolidation, also stable from prior. Tra cheostomy in good position. Cardiomegaly. CONCLUSION: Persistent diffuse opacities in the right hemithorax and persistent central infiltrates in the left l deirdre. Electronically signed by: Deangelo Zamora MD 01/21/2018 9:25 PM EDT
--- NOTE | 2018-01-21 22:06 | RADRPT ---
EXAM DATE: 01/21/2018 9:55 PM EDT AGE/SEX: 77 years / Female INDICATIONS: Abdominal pain, worsening renal function. CLINICAL DATA: This is the patient's initial encounter. Patient reports that signs and symptoms have been present for 1 day and indicates a pain score of 0/10. MEDICAL/SURGICAL HISTORY: Cerebrovascular disease. Hypertension. Diabetes. None. RADIATION DOSE: 13.57 CTDI (mGy) COMPARISON: No prior [facility] exams available for comparison. TECHNIQUE: Multiple contiguous axial images were obtained through the abdomen. Images were obtained using multiple row detector helical technique. Using dose reduction techniques, radiation dose was ke pt as low as reasonably achievable to obtain optimal diagnostic quality images. Lower Lungs: Bilateral lower lung consolidation and pleural effusions, right greater than left. Calci fication granuloma left lung base Liver: The liver has a homogeneous density without space-occupying lesion. There is no dilation of th e biliary tree. Spleen: Homogeneous density without enlargement. Pancreas: Unremarkable without mass or calcification. Kidneys: Normal in size and shape. No evidence of mass or hydronephrosis. Adrenal Glands: Unremarkable. Aorta: The aorta and proximal iliac vessels are grossly unremarkable without aneurysmal dilation. Bowel/Mesentery: The bowel loops are grossly unremarkable. The cecum and sigmoid colon have a normal configuration. No evidence of free intraperitoneal gas. Abdominal Wall: Asymmetric thickening of the right lateral chest wall and breast with prominent marielle ration of the subcutaneous soft tissues. Percutaneous gastrostomy tube in place.. Retroperitoneum: No evidence of adenopathy in the retrocrural, para-aortic, or deep pelvic regions. Bladder: Leavitt catheter within a nondistended bladder. Reproductive Organs: Prominent flocculent calcifications in the uterus suggesting calcified fibroids . Inguinal: Fat-containing left inguinal hernia. Bony Structures: Left femoral intramedullary siomara and trochanteric nail. Diffuse osteopenia. CONCLUSION: 1. Bilateral pleural effusions and lower lobe consolidation, right greater than left. 2. Prominent asymmetric thickening and swelling of the subcutaneous tissues of the right lower chest and breast. 3. Small left inguinal hernia. Electronically signed by: Deangelo Zamora MD 01/21/2018 10:05 PM EDT
[2018-01-22] VITALS (11 sets, daily range): BP systolic 153–180; BP diastolic 69–93; PULSE 48–91; RESP 16–17; TEMP 97–97.9; O2SAT 93–100
[2018-01-22] MEDS: INSULIN NovoLIN REGULAR SUPPLEMENTAL SCALE SQ SCH ×4 (00:30→18:06)
[2018-01-22] MEDS: CEFEPIME INJ 2,000 MG in SODIUM CHLORIDE 0.9% INJ 100 ML IV SCH ×2 (02:15→13:41)
[2018-01-22] MEDS: ONDANSETRON HCL 4 MG/2 ML VIAL IV PUSH PRN (03:43)
[2018-01-22] MEDS: FREE WATER G-TUBE SCH ×4 (05:46→18:00)
[2018-01-22] MEDS: hydrALAZINE HCL 10 MG TAB PEG SCH ×3 (05:48→20:11)
[2018-01-22] MEDS: LACTOBACILLUS ACIDOPHILUS TAB PEG SCH ×3 (09:17→17:21)
[2018-01-22] MEDS: FUROSEMIDE 40 MG/4 ML VIAL IV PUSH SCH ×2 (09:18→17:22)
[2018-01-22] MEDS: METOCLOPRAMIDE HCL SYRUP 10 MG/10 ML UDC G-TUBE SCH ×3 (09:18→17:22)
[2018-01-22] MEDS: CHOLESTYRAMINE LIGHT 4 GM PACKAGE PEG SCH ×2 (09:18→20:11)
[2018-01-22] MEDS: CALCIUM/VITAMIN D 250 MG/125 U TAB PEG SCH ×3 (09:18→17:21)
[2018-01-22] MEDS: GABAPENTIN 100 MG CAP PO PRN (09:18)
[2018-01-22] MEDS: CHOLECALCIFEROL (VIT D3) 5000 UNIT CAP PEG SCH (09:18)
[2018-01-22] MEDS: LANSOPRAZOLE SOLUTAB 30 MG TAB NG SCH (09:18)
[2018-01-22] MEDS: LINEZOLID 600 MG TAB PO SCH ×2 (09:40→20:11)
[2018-01-22] MEDS: RESP: COLISTIN 150 MG VIAL NEB SCH ×2 (09:40→20:00)
--- NOTE | 2018-01-22 10:31 | HHI.NPPN ---
Subjective Renal Failure: Acute Interval History Labs are not available from today. Her urine output has slowed, edema has increased. Non verbal on the vent. (Dawn Cain) Review of Systems General General Remarks unable to evaluate (Dawn Cain) Objective Data Data Vital Signs Date Time Temp Pulse Resp B/P (MAP) Pulse Ox O2 Delivery O2 Flow Rate FiO2 01/22/18 09:35 96 50 01/22/18 09:35 50 01/22/18 04:41 95 45 01/22/18 04:00 40 01/22/18 04:00 97.2 63 16 156/79 (104) 94 01/22/18 01:21 99 45 01/22/18 00:00 97.1 48 16 164/75 (104) 93 01/22/18 00:00 40 01/21/18 21:01 98 50 01/21/18 20:00 97.9 49 16 169/81 (110) 97 01/21/18 20:00 40 01/21/18 16:58 99 50 01/21/18 16:40 94 40 01/21/18 16:00 98.2 64 22 160/70 (100) 01/21/18 16:00 40 01/21/18 12:47 93 40 01/21/18 12:00 98.0 98 20 179/80 (113) 01/21/18 12:00 40 (Dawn Cain) -: 01/19/18 0850 01/21/18 0721 Imaging Last 72 hours Impressions Chest X-Ray 01/21/18 0000 Signed Impressions: CONCLUSION: Persistent diffuse opacities in the right hemithorax and persistent central inf iltrates in the left lung. Abdomen/Pelvis CT 01/21/18 0000 Signed Impressions: CONCLUSION: 1. Bilateral pleural effusions and lower lobe consolidation, right greater matthew n left. 2. Prominent asymmetric thickening and swelling of the subcutaneous tissues of the right lower chest and breast. 3. Small left inguinal hernia. Tubes & Lines: Leavitt Tubes & Lines Comment trach (Dawn Cain) Physical Exam General Appearance: Well Developed, No Acute Distress (Dawn Cain) Ears & Nose Ears & Nose Exam: Nasal Mucosa [place] (Ant,Dawn B. [employer] ENGINE[employer]) Throat Throat Remarks trach/vent (Danw Cain B. [employer]) Neck Neck Exam: Neck Supple (Dawn Cain. [employer]) Pulmonary Resp Exam: Clear Bilaterally, Breath Sounds Equal, Diminished Breath Sounds Resp Remarks vented (Dawn Cain B. [employer]) Cardiology CV Exam: Regular, Normal Sinus Rhythm (Dawn Cain B. [employer]) Gastrointestinal/Abdomen GI Exam: Non-Tender, Bowel Sounds Present, Distended GI Remarks firm abdomen, distended. (Dawn Cain. [employer]) Genitourinary Exam: Clear Urine (Dawn Cain B. [employer]) Musculoskeletal MS Exam: Atrophy, Unable to Ambulate MS Remarks right muscle rigidity left side without purposeful movements (Dawn Cain B. [employer]) Integumentary Skin Exam: Dry, Intact (Dawn Cain B. [employer]) Extremeties Extremities Exam: Pedal Pulses Palpable, Moderate Edema (Dawn Cain. [employer]) Neurologic Neuro Exam: Unresponsive Neuro Remarks eyes closed No tracking when eyes open right side hemiparesis with rigidity (Dawn Cain. [employer]) VTE Prophylaxis Device: SCDs (Dawn Cain B. [employer]) Assessment/Plan Assessment Summary: MIRIAM/Acute Renal Failure, Fluid/Volume Overload Problem List: (1) Acute kidney failure ICD Codes: N17.9 - Acute kidney failure, unspecified Plan: Normal renal function at baseline MIRIAM developed recently. Etiologies include ATN due to hypotension/hypoperfusion , and infection/sepsis. Also may have developed AIN. CT abd/pelvis negative for obstruction Has extensive edema, resume BID Lasix IV. Also on albumin. Monitor labs, and urine output. Leavitt is in place. Her urine output has slowed. Avoid nephrotoxic agents. Lisinopril being held. Replace electrolytes as needed Await labs from today. Resume amlodipine (2) HCAP (healthcare-associated pneumonia) ICD Codes: J18.9 - Pneumonia, unspecified organism Status: Resolved Plan: With sepsis. ID has evaluated,On cefepime IV and po Zyvox. ID has evaluated (3) UTI (urinary tract infection) ICD Codes: N39.0 - Urinary tract infection, site not specified Status: Acute Plan: ID following, managing antibiotics On PO difulcan (4) Chronic respiratory failure ICD Codes: J96.10 - Chronic respiratory failure, unspecified whether with hypoxia or hypercapnia Status: Chronic Plan: Unsuccessful vent weening Being treated for pneumonia, see above (5) Hypokalemia ICD Codes: E87.6 - Hypokalemia Plan: Replace as needed PEG (6) Hyperkalemia ICD Codes: E87.5 - Hyperkalemia Plan: Corrected, see above Plan Prognosis is poor. (Dawn Cain) Plan patient was seen and examined. 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 Very poor prognosis. Suggest hospice. (Claudy David MD) Problem Qualifiers (1) UTI (urinary tract infection): Qualified Codes: N39.0 - Urinary tract infection, site not specified (2) Chronic respiratory failure: Qualified Codes: J96.11 - Chronic respiratory failure with hypoxia Dawn Cain January 22, 2018 10:31 Claudy David MD January 22, 2018 16:07
[2018-01-22 11:12] LABS: ALBUMIN 2.6 GM/DL (3.4-5.0); BICARBONATE 17.8 MEQ/L (21.0-32.0); CALCIUM 9.9 MG/DL (8.5-10.1); CREATININE 2.64 MG/DL (0.50-1.00); PHOSPHORUS 1.8 MG/DL (2.5-4.9)
[2018-01-22] MEDS: INSULIN DETEMIR 100 UNITS/ML VIAL SQ SCH ×2 (12:14)
[2018-01-22] MEDS: CALCIUM POLYCARBOPHIL 625 MG TAB PEG SCH ×2 (12:17→20:11)
[2018-01-22] MEDS: FLUCONAZOLE 100 MG TAB PO SCH (13:42)
--- NOTE | 2018-01-22 13:57 | HHI.PR ---
Subjective Remarks Follow-up on patient with recurrent pneumonia MDR gram-negative infection. Patient is nonverbal. Several days ago, patient had episode of vomiting with witnessed aspiration. Discussed with RN who states patient is more edematous. UOP is less. Also having nausea and vomiting, tube feeds on hold. ID following. Repeat CXR 01/21 reveals persistent diffuse opacities in the right hemithorax and persistent central infiltrates in the left lung. CT abd/pelvis reveals bilateral pleural effusions and lower lobe consolidation, right greater than left and prominent asymmetric thickening and swelling of the subcutaneous tissues of the right lower chest and breast. Objective Vitals Vital Signs Date Time Temp Pulse Resp B/P (MAP) Pulse Ox O2 Delivery O2 Flow Rate FiO2 01/22/18 12:21 99 50 01/22/18 12:00 97.1 91 17 178/91 (120) 99 01/22/18 09:35 96 50 01/22/18 09:35 50 01/22/18 08:00 97.9 63 16 180/93 (122) 97 01/22/18 04:41 95 45 01/22/18 04:00 40 01/22/18 04:00 97.2 63 16 156/79 (104) 94 01/22/18 01:21 99 45 01/22/18 00:00 97.1 48 16 164/75 (104) 93 01/22/18 00:00 40 01/21/18 21:01 98 50 01/21/18 20:00 97.9 49 16 169/81 (110) 97 01/21/18 20:00 40 01/21/18 16:58 99 50 01/21/18 16:40 94 40 01/21/18 16:00 98.2 64 22 160/70 (100) 01/21/18 16:00 40 I/O 01/21/18 01/21/18 01/21/18 01/22/18 01/22/18 01/22/18 06:59 14:59 22:59 06:59 14:59 22:59 Intake Total 863 ml 0 ml 720 ml Output Total 800 ml 350 ml 201 ml Balance 63 ml -350 ml 519 ml Intake Oral 0 ml IV Total 95 ml Tube Feeding 563 ml 375 ml Other 300 ml 250 ml Output Urine Total 800 ml 350 ml 200 ml Emesis 1 ml # Bowel Movements 1 0 1 1 Result Diagram: 01/19/18 0850 01/22/18 1011 Imaging Last Impressions Chest X-Ray 01/21/18 0000 Signed Impressions: CONCLUSION: Persistent diffuse opacities in the right hemithorax and persistent central inf iltrates in the left lung. Abdomen/Pelvis CT 01/21/18 0000 Signed Impressions: CONCLUSION: 1. Bilateral pleural effusions and lower lobe consolidation, right greater matthew n left. 2. Prominent asymmetric thickening and swelling of the subcutaneous tissues of the right lower chest and breast. 3. Small left inguinal hernia. Renal Ultrasound 01/16/18 0000 Signed Impressions: Service Date/Time: Tuesday, January 16, 2018 12:01 - CONCLUSION: 1. Mild left- sided hydronephrosis. 2. Right kidney appears unremarkable 3. Nonvisualization of the bladder. Benja Ramsey MD Abdomen X-Ray 01/14/18 0000 Signed Impressions: Service Date/Time: Sunday, January 14, 2018 15:26 - CONCLUSION: 1. Air distention of the gastric lumen and small bowel loops with some air identified in the colon. Possible hypodynamic ileus. 2. Degenerative fibroid Ananda Oneill MD Upper Extremity Ultrasound 11/04/17 0000 Signed Impressions: Service Date/Time: Saturday, November 04, 2017 09:57 - CONCLUSION: No thrombus observed. Subcutaneous edema noted. Deangelo Wren Jr., MD CT Angiography 11/01/17 0000 Signed Impressions: Service Date/Time: Wednesday, November 01, 2017 16:47 - CONCLUSION: No evidence for pulmonary embolism. Please see above. Choco Mustafa MD Thoracentesis 08/05/17 1535 Signed Impressions: Service Date/Time: Saturday, August 05, 2017 16:08 - CONCLUSION: Uncomplicated CT-guided thoracentesis. Sage Adler MD Chest Ultrasound 08/02/17 0000 Signed Impressions: Service Date/Time: Tuesday, August 01, 2017 22:06 - CONCLUSION: 1. Moderate right pleural effusion, as above. Alejo De La Vega MD Hip and Pelvis X-Ray 07/09/17 0000 Signed Impressions: Service Date/Time: Sunday, July 09, 2017 14:04 - CONCLUSION: Anatomic alignment. Ricardo Middleton MD FACR Liver Ultrasound 06/19/17 0000 Signed Impressions: Service Date/Time: June 13:20 - CONCLUSION: 1. Mildly increased echotexture of the liver characteristic of hepatic steatosis. 2. Gallbladder sludge. Obdulio Sam MD Head CT 05/15/17 0000 Signed Impressions: Service Date/Time: May 19:59 - CONCLUSION: 1. 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 2. No bleed or new/acute infarct. Obdulio Simms MD Gall Bladder Ultrasound 05/08/17 0000 Signed Impressions: Service Date/Time: May 08:23 - CONCLUSION: Focally unremarkable appearance of the gallbladder Obdulio Chun MD Chest CT 04/30/17 0000 Signed Impressions: Service Date/Time: Sunday, April 30, 2017 09:20 - CONCLUSION: 1. Bilateral pulmonary infiltrates more pronounced within the lower lobes with tiny bilateral pleural effusions. Material seen filling the lower lobe bronchi bilaterally either related to purulent material or perhaps mucus plugging. Deangelo Wren Jr., MD Carotid Artery Ultrasound 04/24/17 0000 Signed Impressions: Service Date/Time: April 09:45 - CONCLUSION: 1. No hemodynamically significant carotid artery stenosis. Arnie Middleton MD Hip X-Ray 04/21/17 0000 Signed Impressions: Service Date/Time: Friday, April 21, 2017 11:36 - CONCLUSION: Fluoroscopic images during placement of intramedullary siomara left femur. Benja Ramsey MD Objective Remarks GENERAL: Elderly female patient in NAD. Appears comfortable. Nonverbal. Noninteractive. SKIN: Warm and dry. Bilateral first medial MCP ulcers. HEAD: Normocephalic. EYES: No scleral icterus. No injection or drainage. ENT: No nasal bleeding or discharge. Mucous membranes pink and moist. NECK: Trachea midline. T piece in place. CARDIOVASCULAR: Regular rate and rhythm. S1, S2 noted. No murmur appreciated. RESPIRATORY: No accessory muscle use. Breath sounds equal bilaterally. GASTROINTESTINAL: Abdomen soft, non-tender, nondistended. Normoactive bowel sounds x4. PEG tube site C/D/I. MUSCULOSKELETAL: Extremities without clubbing or cyanosis + 2+ pitting edema in BLEs extending up into thighs bilaterally with trace edema. Nonpitting edema noted in bilateral upper extremities. NEUROLOGICAL: Nonverbal. Does not follow commands. Procedures PEG tube trach 05/15/17 and PEG 05/16/17 A/P Problem List: (1) Acute ischemic left middle cerebral artery (MCA) stroke ICD Code: I63.512 - Cerebral infarction due to unspecified occlusion or stenosis of left middle cerebral artery Status: Acute (2) Acute respiratory failure ICD Code: J96.00 - Acute respiratory failure, unspecified whether with hypoxia or hypercapnia Status: Resolved (3) Right hemiplegia ICD Code: G81.91 - Hemiplegia, unspecified affecting right dominant side Status: Acute (4) Sacral decubitus ulcer ICD Code: L89.159 - Pressure ulcer of sacral region, unspecified stage Status: Chronic (5) HCAP (healthcare-associated pneumonia) ICD Code: J18.9 - Pneumonia, unspecified organism Status: Resolved (6) 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 She underwent ORIF on 04/21/17 and on 04/24 a stroke alert was called as she was found to have right hemiparesis with left gaze. She has a poor prognosis based on her lack of overall recovery over the last 6+ months. Acute kidney failure, cr worse today, now 2.64 Hypoalbuminemia possible ATN due to hypotension, infx/sepsis and/or AIN Renal US showed mild left sided hydronephrosis CT abd/pelvis shows bilateral pleural effusions and lower lobe consolidation, right greater than left. Prominent asymmetric thickening and swelling of the subcutaneous tissues of the right lower chest and breast. has extensive edema -Nephrology following. Started on IV Lasix and Albumin. Lasix dose increased today to BID dosing. -moser placed to monitor UOP -ACEI on hold and Norvasc resumed -monitor for improvement Recurrent PNA, mucus plugging HCAP New sepsis due to PNA MDR PSAE and Serratia +AFB in bronch, ID suspects atypical mycobacteria CXR 01/21 reveals persistent diffuse opacities in the right hemithorax and persistent central infiltrates in the left lung, images reviewed by me -ID following -on IV Zyvox and Cefepime and Colistin nebs per ID -repeat CBC in am Bradycardia -Cardiology consulted, avoid AV du blocking agents, no further intervention per cardiology, signed off -Hold medications that can affect heart rate including Reglan, bp meds. D/C Cardura. -Monitor for trach plugging. Hypertension / CHF -Amlodipine 10 mg po daily,hydralazine 10 mg per per peg q8 hours. Lisinopril on hold. -Echo 10/06/17 LVSF EF = 25-30%. Left MCA stroke -5.5 mm of [id number] subfalcine herniation, diagnosed 04/24. Was not a candidate for thrombolysis at that time. -Increasing edema seen on repeat CT 04/28 with a reduction in midline shift on another repeat on 04/30 -Neurologic condition remained poor and she underwent trach 05/15/17 and PEG 05/16 -Persistent right-sided hemiparesis. -Previously seen by neurology, signed off -Previously seen by neurosurgery, signed off -Continue daily ASA -PT UTI -01/14 Urine culture grew sofie glabrata and VRE enterococcus faecium -on Diflucan and Zyvox per ID x 10 days Chronic Tracheostomy /respiratory failure 10/22/2017 Pseudomonas Tracheobronchitis AFB Positive in BAL, PCR negative for MTB -Vent support per pulmonary medicine -Duo nebs as needed Hepatitis C -LFTs normalized -Negative genotype/viral load Diabetes mellitus BS fairly well controlled -ISS -Levemir insulin 8u Q12 -Monitor Accu-Cheks Tube Feeds, PEG - currently on hold 10/03 N/V -PEG tube feeding with Glucerna 1.5 goal 45 cc/hr, per nutrition recommendations Anal Fissure Bilateral hallux ulcers -Wound care following -Monitor DVT prophylaxis heparin Discussed with nursing staff, Dr. Denney Problem Qualifiers (1) Acute respiratory failure: Qualified Codes: J96.00 - Acute respiratory failure, unspecified whether with hypoxia or hypercapnia (2) Sacral decubitus ulcer: Qualified Codes: L89.152 - Pressure ulcer of sacral region, stage 2 (3) Chronic respiratory failure: Qualified Codes: J96.11 - Chronic respiratory failure with hypoxia (4) Shingles: Qualified Codes: B02.8 - Zoster with other complications Josee Grayson January 22, 2018 13:57
[2018-01-22] MEDS ORDERED: POTASSIUM PHOSPHATE MONOBASIC 500 MG TAB PO ONE (15:00)
--- NOTE | 2018-01-22 19:53 | HHI.PR ---
Subjective Remarks On Vent, AC 16, Fi02 60% No fever Moderate amount of thick mucous Decreased urine out put had Lasix Objective Vital Signs Vital Signs Date Time Temp Pulse Resp B/P (MAP) Pulse Ox O2 Delivery O2 Flow Rate FiO2 01/22/18 16:00 97.9 62 16 162/71 (101) 99 01/22/18 12:21 99 50 01/22/18 12:00 97.1 91 17 178/91 (120) 99 01/22/18 09:35 96 50 01/22/18 09:35 50 01/22/18 08:00 97.9 63 16 180/93 (122) 97 01/22/18 04:41 95 45 01/22/18 04:00 40 01/22/18 04:00 97.2 63 16 156/79 (104) 94 01/22/18 01:21 99 45 01/22/18 00:00 97.1 48 16 164/75 (104) 93 01/22/18 00:00 40 01/21/18 21:01 98 50 01/21/18 20:00 97.9 49 16 169/81 (110) 97 01/21/18 20:00 40 I/O 01/21/18 01/21/18 01/21/18 01/22/18 01/22/18 01/22/18 07:00 15:00 23:00 07:00 15:00 23:00 Intake Total 863 ml 0 ml 720 ml 1020 ml Output Total 800 ml 350 ml 201 ml 200 ml Balance 63 ml -350 ml 519 ml 820 ml Intake Oral 0 ml IV Total 95 ml 100 ml Tube Feeding 563 ml 375 ml 180 ml Tube Irrigant 240 ml Other 300 ml 250 ml 500 ml Output Urine Total 800 ml 350 ml 200 ml 200 ml Emesis 1 ml # Bowel Movements 1 0 1 1 1 Result Diagram: 01/19/18 0850 01/22/18 1011 Objective Remarks GENERAL: Elderly female,NAD SKIN: Warm and dry. HEAD: Normocephalic. EYES: No scleral icterus. No injection or drainage. NECK: Supple, trachea midline. No JVD or lymphadenopathy. + trach CARDIOVASCULAR: Regular rate and rhythm without murmurs, gallops, or rubs. RESPIRATORY: Breath sounds equal bilaterally. No accessory muscle use. Decreased BS Right GASTROINTESTINAL: Abdomen soft, non-tender, nondistended. MUSCULOSKELETAL: No cyanosis, or edema. BACK: Nontender without obvious deformity. No CVA tenderness. A/P Assessment and Plan Chronic resp failure, ,S/P Trach CVA Pneumonia Calcified Granuloma LLL Pseudomonas Tracheobronchitis, AFB Positive in BAL, PCR negative for MTB PLAN: Vent support , AC 16, Fi02 60% Bronchodilators, IVF GI/DVT prophylaxis IV Zosyn Colistin Nebs Monitor renal functions. Chris Rizo MD January 22, 2018 19:53
[2018-01-23] VITALS (21 sets, daily range): BP systolic 98–159; BP diastolic 50–84; PULSE 35–84; RESP 12–28; TEMP 96.4–100.8; O2SAT 93–100
[2018-01-23] MEDS: INSULIN NovoLIN REGULAR SUPPLEMENTAL SCALE SQ SCH ×5 (00:04→23:47)
[2018-01-23] MEDS: INSULIN DETEMIR 100 UNITS/ML VIAL SQ SCH ×3 (00:04→23:48)
[2018-01-23] MEDS: CEFEPIME INJ 2,000 MG in SODIUM CHLORIDE 0.9% INJ 100 ML IV SCH (03:00)
[2018-01-23] MEDS: FREE WATER G-TUBE SCH ×5 (05:29→22:43)
[2018-01-23] MEDS: hydrALAZINE HCL 10 MG TAB PEG SCH ×3 (05:32→21:02)
[2018-01-23] MEDS: RESP: COLISTIN 150 MG VIAL NEB SCH ×2 (08:19→19:22)
[2018-01-23] MEDS: CALCIUM POLYCARBOPHIL 625 MG TAB PEG SCH ×2 (09:00→20:48)
[2018-01-23] MEDS: CALCIUM/VITAMIN D 250 MG/125 U TAB PEG SCH ×3 (10:22→19:32)
[2018-01-23] MEDS: LANSOPRAZOLE SOLUTAB 30 MG TAB NG SCH (10:22)
[2018-01-23] MEDS: CHOLESTYRAMINE LIGHT 4 GM PACKAGE PEG SCH ×2 (10:22→20:48)
[2018-01-23] MEDS: LINEZOLID 600 MG TAB PO SCH ×2 (10:22→20:47)
[2018-01-23] MEDS: CHOLECALCIFEROL (VIT D3) 5000 UNIT CAP PEG SCH (10:22)
[2018-01-23] MEDS: METOCLOPRAMIDE HCL SYRUP 10 MG/10 ML UDC G-TUBE SCH ×3 (10:22→19:32)
[2018-01-23] MEDS: LACTOBACILLUS ACIDOPHILUS TAB PEG SCH ×3 (10:25→19:32)
[2018-01-23] MEDS: FUROSEMIDE 40 MG/4 ML VIAL IV PUSH SCH ×2 (10:26→19:32)
--- NOTE | 2018-01-23 10:27 | HHI.NPPN ---
Subjective Renal Failure: Acute Interval History Remains on the vent. Renal function is worse and urine output has slowed, now oliguric. Bradycardic. (Dawn Cain) Review of Systems General General Remarks unable to evaluate (Dawn Cain) Objective Data Data Vital Signs Date Time Temp Pulse Resp B/P (MAP) Pulse Ox O2 Delivery O2 Flow Rate FiO2 01/23/18 08:21 40 01/23/18 08:21 99 40 01/23/18 08:00 99.8 39 18 110/52 (71) 98 01/23/18 07:00 40 01/23/18 07:00 47 18 154/67 (96) 98 01/23/18 04:22 98 60 01/23/18 04:00 97.9 62 16 154/65 (94) 99 01/23/18 00:00 60 01/23/18 00:00 97.0 59 16 159/71 (100) 100 01/22/18 20:56 99 60 01/22/18 20:00 60 01/22/18 20:00 97.0 56 16 153/69 (97) 100 01/22/18 19:00 60 01/22/18 16:00 97.9 62 16 162/71 (101) 99 01/22/18 12:21 99 50 01/22/18 12:00 97.1 91 17 178/91 (120) 99 (Dawn Cain) -: 01/19/18 0850 01/22/18 1011 Imaging Last 72 hours Impressions Chest X-Ray 01/21/18 0000 Signed Impressions: CONCLUSION: Persistent diffuse opacities in the right hemithorax and persistent central inf iltrates in the left lung. Abdomen/Pelvis CT 01/21/18 0000 Signed Impressions: CONCLUSION: 1. Bilateral pleural effusions and lower lobe consolidation, right greater matthew n left. 2. Prominent asymmetric thickening and swelling of the subcutaneous tissues of the right lower chest and breast. 3. Small left inguinal hernia. Tubes & Lines: Leavitt Tubes & Lines Comment trach, PEG (Dawn Cain) Physical Exam General Appearance: Well Developed, No Acute Distress, Sleeping (Dawn Cain) Ears & Nose Ears & Nose Exam: Nasal Mucosa Salyer (Manuel Cainon B. [employer]IOR [employer]) Throat Throat Remarks trach/vent (AntDawn B. J[employer]IOR [employer] BU[employer]) Neck Neck Exam: Neck Supple (AntDawn B. J[employer]IOR [employer] BU[employer]ER) Pulmonary Resp Exam: Clear Bilaterally, Breath Sounds Equal, Diminished Breath Sounds Resp Remarks vented (AntDawn B. J[employer]IOR [employer]) Cardiology CV Exam: Regular, Normal Sinus Rhythm (Manuel Cainon B. J[employer]IOR [employer] BU[employer]) Gastrointestinal/Abdomen GI Exam: Non-Tender, Bowel Sounds Present, Distended GI Remarks firm abdomen, distended. (AntDawn B. J[employer]IOR [employer]) Genitourinary Exam: Clear Urine (AntDawn B. J[employer]IOR [employer]) Musculoskeletal MS Exam: Atrophy, Unable to Ambulate MS Remarks generalized muscle rigidity (AntDawn B. J[employer]IOR [employer] BU[employer]ER) Integumentary Skin Exam: Warm, Dry, Intact Skin Remarks ulcer on left hallux (AntDawn B. J[employer]IOR [employer] BU[employer]ER) Extremeties Extremities Exam: Pedal Pulses Palpable, Moderate Edema (Manuel Cainon B. J[employer]IOR [employer] BU[employer]ER) Neurologic Neuro Exam: Unresponsive Neuro Remarks eyes closed right side hemiparesis with rigidity (AntDawn B. J[employer]IOR [employer] BU[employer]) VTE Prophylaxis Device: SCDs (AntDawn B. J[employer]IOR [employer]) Assessment/Plan Discussed Condition With: Daughter Assessment Summary: MIRIAM/Acute Renal Failure, Fluid/Volume Overload Problem List: (1) Acute kidney failure ICD Codes: N17.9 - Acute kidney failure, unspecified Plan: Normal renal function at baseline MIRIAM developed recently. Etiologies include ATN due to hypotension/hypoperfusion , and infection/sepsis. Also may have developed AIN. Renal function is declining No longer responding to diuretics. Has become oliguric. Change to Nepro tube feeding. Had a long discussion with the daughter. The patient may need dialysis if no improvement. However, given the overall prognosis and recent bradycardia she most likely will not do well during therapy. At this time she is bradycardic and too unstable for treatment. Strongly recommend Hospice. However the daughter has very unrealistic expectations. Explained that we would be prolonging her suffering, not improving quality of life which is the goal of dialysis therapy. In addition, finding a intermediate vent unit capable of dialysis is difficult to find, options are limited. She wants aggressive treatment despite the risk of decompensation while on dialysis. Continue BID Lasix IV and albumin. Monitor labs, and urine output. Flush Leavitt today. Avoid nephrotoxic agents. Lisinopril being held. Avoid non essential medications , stop antibiotics if possible. Replace electrolytes as needed (2) HCAP (healthcare-associated pneumonia) ICD Codes: J18.9 - Pneumonia, unspecified organism Status: Resolved Plan: With sepsis. ID has evaluated,On cefepime IV and po Zyvox. (3) UTI (urinary tract infection) ICD Codes: N39.0 - Urinary tract infection, site not specified Status: Acute Plan: ID following, managing antibiotics On PO difulcan (4) Chronic respiratory failure ICD Codes: J96.10 - Chronic respiratory failure, unspecified whether with hypoxia or hypercapnia Status: Chronic Plan: Unsuccessful vent weening in the past. On CPAP trial today. Being treated for pneumonia, see above (5) Hypokalemia ICD Codes: E87.6 - Hypokalemia Plan: Replace as needed PEG (6) Hyperkalemia ICD Codes: E87.5 - Hyperkalemia Plan: Corrected, see above Plan (Dawn Cain) Plan patient was seen and examined. Renal function is worse. ATN or AIN are possibilities. Very poor prognosis. Patient's daughter is unrealistic, wants to proceed with dialysis. Needs VasCath, I have ordered dialysis. (Claudy David MD) Problem Qualifiers (1) UTI (urinary tract infection): Qualified Codes: N39.0 - Urinary tract infection, site not specified (2) Chronic respiratory failure: Qualified Codes: J96.11 - Chronic respiratory failure with hypoxia Dawn Cain January 23, 2018 10:27 Claudy David MD January 23, 2018 14:32
[2018-01-23] MEDS: oxyCODONE HCL ORAL CONC 5 MG/0.25 ML SYRINGE PEG PRN (10:33)
[2018-01-23 11:23] LABS: AUTOMATED NEUTROPHIL # 9.9 TH/MM3 (1.8-7.7); BASOPHIL # 0.1 TH/MM3 (0-0.2); BASOPHIL % 0.7 % (0.0-2.0); EOSINOPHIL # 0.3 TH/MM3 (0-0.4); EOSINOPHIL % 2.5 % (0.0-4.0); HEMATOCRIT 24.5 % (35.0-46.0); HEMOGLOBIN 7.9 GM/DL (11.6-15.3); LYMPH % 13.2 % (9.0-44.0); LYMPHOCYTE # 1.7 TH/MM3 (1.0-4.8); MEAN CELL VOLUME 96.5 FL (80.0-100.0); MEAN CORPUSCULAR HEMOGLOBIN 31.2 PG (27.0-34.0); MEAN CORPUSCULAR HGB CONC 32.4 % (32.0-36.0); MEAN PLATELET VOLUME 9.2 FL (7.0-11.0); MONO % 6.8 % (0.0-8.0); MONOCYTE # 0.9 TH/MM3 (0-0.9); NEUT % 76.8 % (16.0-70.0); PLATELET COUNT 243 TH/MM3 (150-450); RED BLOOD COUNT 2.54 MIL/MM3 (4.00-5.30); RED CELL DISTRIBUTION WIDTH 17.1 % (11.6-17.2); WHITE BLOOD COUNT 12.9 TH/MM3 (4.0-11.0)
[2018-01-23 11:35] LABS: ALBUMIN 2.2 GM/DL (3.4-5.0); BICARBONATE 18.1 MEQ/L (21.0-32.0); CALCIUM 9.4 MG/DL (8.5-10.1); CREATININE 3.12 MG/DL (0.50-1.00); PHOSPHORUS 2.4 MG/DL (2.5-4.9)
[2018-01-23 12:29] LABS: STOMATOCYTES 1+ (NORMAL)
--- NOTE | 2018-01-23 12:58 | HHI.PR ---
Subjective Remarks Poor urine output overnight per nursing staff. Daughter unrealistic and has communicated she would like her monitor proceed with hemodialysis Objective Vitals Vital Signs Date Time Temp Pulse Resp B/P (MAP) Pulse Ox O2 Delivery O2 Flow Rate FiO2 01/23/18 08:21 40 01/23/18 08:21 99 40 01/23/18 08:00 99.8 39 18 110/52 (71) 98 01/23/18 07:00 40 01/23/18 07:00 47 18 154/67 (96) 98 01/23/18 04:22 98 60 01/23/18 04:00 97.9 62 16 154/65 (94) 99 01/23/18 00:00 60 01/23/18 00:00 97.0 59 16 159/71 (100) 100 01/22/18 20:56 99 60 01/22/18 20:00 60 01/22/18 20:00 97.0 56 16 153/69 (97) 100 01/22/18 19:00 60 01/22/18 16:00 97.9 62 16 162/71 (101) 99 I/O 01/22/18 01/22/18 01/22/18 01/23/18 01/23/18 01/23/18 07:00 15:00 23:00 07:00 15:00 23:00 Intake Total 720 ml 1020 ml 1315 ml Output Total 201 ml 200 ml 75 ml Balance 519 ml 820 ml 1240 ml IV Total 95 ml 100 ml 350 ml Tube Feeding 375 ml 180 ml 465 ml Tube Irrigant 240 ml Other 250 ml 500 ml 500 ml Output Urine Total 200 ml 200 ml 75 ml Emesis 1 ml # Bowel Movements 1 1 2 1 Result Diagram: 01/23/18 1051 01/23/18 1051 Objective Remarks GENERAL: This is a well-nourished, well-developed patient, in no apparent distress and did not follow commands or respond to voice. Trach in place CARDIOVASCULAR: Regular rate and rhythm without murmurs, gallops, or rubs. RESPIRATORY: bilaterally coarse breath sounds. GASTROINTESTINAL: Abdomen soft, non-tender, edematous, nondistended. Normal active bowel sounds Extremities : 2 + edema Procedures PEG tube trach 05/15/17 and PEG 05/16/17 A/P Problem List: (1) Acute ischemic left middle cerebral artery (MCA) stroke ICD Code: I63.512 - Cerebral infarction due to unspecified occlusion or stenosis of left middle cerebral artery Status: Acute (2) Acute respiratory failure ICD Code: J96.00 - Acute respiratory failure, unspecified whether with hypoxia or hypercapnia Status: Resolved (3) Right hemiplegia ICD Code: G81.91 - Hemiplegia, unspecified affecting right dominant side Status: Acute (4) Sacral decubitus ulcer ICD Code: L89.159 - Pressure ulcer of sacral region, unspecified stage Status: Chronic (5) HCAP (healthcare-associated pneumonia) ICD Code: J18.9 - Pneumonia, unspecified organism Status: Resolved (6) 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 She underwent ORIF on 04/21/17 and on 04/24 a stroke alert was called as she was found to have right hemiparesis with left gaze. She has a poor prognosis based on her lack of overall recovery over the last 6+ months. 01/07 Sepsis with Recurrent Hospital Acquired/Ventilator Associated Pneumonia: patient with previous +fever Tmax 101.0, leukocytosis WBC Trended down and improved after antibiotics started, CXR 01/04/18 showed stable CXR with moderate size right pleural effusion with associated volume loss or airspace consolidation; likely small left pleural effusion; bilateral interstitial opacities; repeat chest x-ray today showed stable unchanged. Patient continued to spike fevers, Reconsulted infectious disease as bronchial washing culture 01/02 positive for multi drug resistant pseudomonas Initially started on IV Zerbaxa, and change IV Cefepime and zyvox per ID trhough 01/25 Blood cultures collected and pending Repeat sputum culture 01/07with Pseudomonas MDRO and Serratia; blood cultures with no growth Acute kidney failure - poor urine output and on Lasix IV -nephrology on the case and recommended comfort care and hospice as they do not feel patient can tolerate hemodialysis and not a candidate. Daughter is pushing for continued care aggressive care and dialysis. Continue to avoid nephrotoxins. IV antibiotics will be discontinued in the next 48 hour after completion of the course. New acute shingles, herpes zoster-contact isolation and continue Valtrex. Chronic Tracheostomy /respiratory failure Pulmonary toilet, trach care Duo nebs q6h Pulmonary following, appreciate assistance S/p bronchoscopy 01/02 with removal of mucous plugs and bronchial washings done Bronchial washings culture from 01/02 with multi drug resistant, pseudomonas, serratia Urinary retention- transient No leukocytosis U/A with large leuk esterase but many squamous cells Culture with mixed Gram positive dmitry and yeast Completed Augmentin 11/07-11/14 Moser reinserted Previous level elevated D-dimer Ordered on 10/31 for increasing FiO2 demand Since D-dimer elevated, CTA chest obtained to r/o PE which was negative Likely elevated in light of chronic illness RUE U/S negative for DVT - elevate R arm Left MCA stroke 5.5 mm of [id number] subfalcine herniation, diagnosed 04/24. Was not a candidate for thrombolysis at that time. Increasing edema seen on repeat CT 04/28 with a reduction in midline shift on another repeat on 04/30 Neurologic condition remained poor and she underwent trach 05/15/17 and PEG Persistent right-sided hemiparesis. Previously seen by neurology, signed off Previously seen by neurosurgery, signed off Continue daily ASA Hypertension / CHF Amlodipine 10 mg po daily, Doxazosin 1 mg peg daily, hydralazine 10 mg per per peg q8 hours. Clonidine 0.1 mg q6h prn Echo 10/06/17 LVSF EF = 25-30%. Large left pneumothorax Resolved Chest tube placed 05/07, discontinued 05/12/17 Hepatitis C LFTs normalized Negative genotype/viral load Diabetes mellitus -overall adequately controlled. SSI Novolin R High-dose scale Levemir insulin 8u Q12 FEN PEG tube feeding with Glucerna 1.5 goal 45 cc/hr, per nutrition recommendations, no tolerating currently, add reglan increase free h2o Decrease urine output - due to TF on hold, free water bolus, await final urine cultre to r/o new infection. continue moser. Loose Stools - improved patient has been checked for Cdiff on multiple occasions, most recently 12/21 C diff negative continue on lactinex bid, questran bid and monitor for improvement improving DVT prophylaxis Heparin Patient with extremely poor prognosis. I discussed her poor prognosis with her respiratory failure, renal failure, encephalopathy with previous CVA. At this time, daughter still wants aggressive care and unrealistic with her overall prognosis. Nephrology does not feel she would be able tolerate hemodialysis. Discharge Planning Difficult placement with poor prognosis Problem Qualifiers (1) Acute respiratory failure: Qualified Codes: J96.00 - Acute respiratory failure, unspecified whether with hypoxia or hypercapnia (2) Sacral decubitus ulcer: Qualified Codes: L89.152 - Pressure ulcer of sacral region, stage 2 (3) Chronic respiratory failure: Qualified Codes: J96.11 - Chronic respiratory failure with hypoxia (4) Shingles: Qualified Codes: B02.8 - Zoster with other complications Kassie Lopez MD January 23, 2018 12:58
[2018-01-23] MEDS ORDERED: SODIUM CHLOR 0.9% 1000 ML INJ 1,000 ML IV PRN (14:25)
[2018-01-23] MEDS ORDERED: SODIUM CHLOR 0.9% 1000 ML INJ 1,000 ML OTHER PRN ×2 (14:25)
[2018-01-23] MEDS ORDERED: HEPARIN SODIUM - IV 10,000 UNITS/10 ML VIAL PRN (14:30)
[2018-01-23] MEDS ORDERED: ACETAMINOPHEN 325 MG TAB PO PRN (14:30)
[2018-01-23] MEDS ORDERED: NITROGLYCERIN 0.4 MG SL 25 TABS/BTL SL PRN (14:30)
[2018-01-23] MEDS ORDERED: MANNITOL 12.5 GM/50 ML VIAL IV PRN (14:30)
[2018-01-23] MEDS ORDERED: ALBUMIN 25% INJ 100 ML IV PRN (14:30)
[2018-01-23] MEDS ORDERED: GENTAMICIN SULFATE 20 MG/2 ML VIAL OTHER PRN (14:30)
[2018-01-23] MEDS ORDERED: GELATIN 12 MM/7 MM FOAM TOP PRN (14:30)
[2018-01-23] MEDS ORDERED: cloNIDine HCL 0.1 MG TAB PO PRN (14:30)
[2018-01-23] MEDS ORDERED: diphenhydrAMINE HCL 25 MG CAP PO PRN (14:30)
[2018-01-23] MEDS ORDERED: HEPARIN SODIUM - IV 10,000 UNITS/10 ML VIAL IV FLUSH PRN (14:30)
[2018-01-23] MEDS ORDERED: SODIUM CHLORIDE 0.9% FLUSH 10 ML FLUSH IV FLUSH PRN (14:30)
[2018-01-23] MEDS: FLUCONAZOLE 100 MG TAB PO SCH (14:41)
[2018-01-23] MEDS ORDERED: ONDANSETRON ODT 4 MG TAB PO PRN (14:45)
--- NOTE | 2018-01-23 14:47 | HHI.PR ---
Subjective Remarks On PSV No fever Moderate amount of thick mucous Decreased urine out put had Lasix More swelling of body Decreased Urine output, worsening renal functions Objective Vital Signs Vital Signs Date Time Temp Pulse Resp B/P (MAP) Pulse Ox O2 Delivery O2 Flow Rate FiO2 01/23/18 11:33 20 01/23/18 08:21 40 01/23/18 08:21 99 40 01/23/18 08:00 99.8 39 18 110/52 (71) 98 01/23/18 07:00 40 01/23/18 07:00 47 18 154/67 (96) 98 01/23/18 04:22 98 60 01/23/18 04:00 97.9 62 16 154/65 (94) 99 01/23/18 00:00 60 01/23/18 00:00 97.0 59 16 159/71 (100) 100 01/22/18 20:56 99 60 01/22/18 20:00 60 01/22/18 20:00 97.0 56 16 153/69 (97) 100 01/22/18 19:00 60 01/22/18 16:00 97.9 62 16 162/71 (101) 99 I/O 01/22/18 01/22/18 01/22/18 01/23/18 01/23/18 01/23/18 07:00 15:00 23:00 07:00 15:00 23:00 Intake Total 720 ml 1020 ml 1315 ml Output Total 201 ml 200 ml 75 ml Balance 519 ml 820 ml 1240 ml IV Total 95 ml 100 ml 350 ml Tube Feeding 375 ml 180 ml 465 ml Tube Irrigant 240 ml Other 250 ml 500 ml 500 ml Output Urine Total 200 ml 200 ml 75 ml Emesis 1 ml # Bowel Movements 1 1 2 1 Result Diagram: 01/23/18 1051 01/23/18 1051 Objective Remarks GENERAL: Elderly female,NAD SKIN: Warm and dry. HEAD: Normocephalic. EYES: No scleral icterus. No injection or drainage. NECK: Supple, trachea midline. No JVD or lymphadenopathy. + trach CARDIOVASCULAR: Regular rate and rhythm without murmurs, gallops, or rubs. RESPIRATORY: Breath sounds equal bilaterally. No accessory muscle use. Decreased BS Right GASTROINTESTINAL: Abdomen soft, non-tender, nondistended. MUSCULOSKELETAL: No cyanosis, or edema. BACK: Nontender without obvious deformity. No CVA tenderness. 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 Poor candidate for HD, per renal Prognosis poor Chris Rizo MD January 23, 2018 14:47
--- NOTE | 2018-01-23 16:35 | HHI.HCPN ---
Reason for visit a. To assist with evaluation and management of symptoms including: Debility and pain. b. To assist medical decision maker(s) with: better understanding of current medical conditions; weighing benefits/burdens of medical treatment options; making medical treatment decisions. . Subjective/Interval History Mrs. Hein is a 77-year-old female with a past medical history of hypertension, diabetes mellitus and CVA who presented to the ED on 04/20/17 via EMS for evaluation of after a fall. Patient underwent Left hip reduction and intramedullary nail fixation on 04/21/17. Clinical course complicated by large left MCA infarct with diffuse edema throughout the left MCA distribution. Medical course further complicated by prolonged hospitalization, tracheostomy status post prolonged ventilation support, MDR Pseudomonas pneumonia -multidrug- resistant , deconditioning. Palliative care follow-up for clarifications of goals of care given worsening clinical condition. Patient presents with worsening overall clinical status. She was seen in her room on full ventilator support in no acute distress, ill looking. Patient unresponsive to verbal or tactile stimuli. Worsening renal function, BUN/ creatinine 98/3.12, poor urinary output. Patient edematous, weeping edema. Nephrology following, very poor candidate for renal replacement therapy secondary to clinical condition. Patient remains on junctional rhythm with heart rate in the 30s-40s. Ventilator dependent respiratory failure s/p tracheostomy, recurring pneumonia and mucous plugging. Multiple active infections to include MDR Pseudomonas, infectious disease following. Patient anemic with hemoglobin of 7.9. Case discussed in great detail with bedside nurse and Dr. Heaton. . Family/friend interactions Telephone conversation with patient's daughter Trice Salvador. Medical update provided. Shared concerns of patient's current clinical condition to include ventilator dependent respiratory failure, persistent pneumonia, leukocytosis with multiple active ojrvj-lfwa-kboceahis infections, worsening renal failure, CHF, anemia and profound physical deconditioning. Reviewed no meaningful neurological recovery in the setting of MCA stroke 9 months ago. Reviewed patient is NOT anticipated to recover. Reviewed that given her worsening clinical condition with prolonged hospitalization, patient appears to be approaching end of life in spite of aggressive management. Review that patient is not likely a candidate for hemodialysis given terminal condition. Reviewed that she has the option to transition patient to comfort-directed care given patient's terminal condition. Daughter reiterated aggressive goals: "keep my mother alive" and terminated phone call. . Advance Directives Living Will: Never completed Health Care Surrogate: Never completed Durable Power of Department Manager: Never completed Advance Directive Specifics Health Care Surrogate(s): No advance directives completed. As per [place] statute, healthcare proxy decision making falls to patient's only daughter Norma Salvador. . Documented care wishes: No living will completed. . Significant change in goals: Goals remain aggressive. . Objective Vital Signs Date Time Temp Pulse Resp B/P (MAP) Pulse Ox O2 Delivery O2 Flow Rate FiO2 01/23/18 13:22 96 40 01/23/18 11:33 20 01/23/18 08:21 40 01/23/18 08:21 99 40 01/23/18 08:00 99.8 39 18 110/52 (71) 98 01/23/18 07:00 40 01/23/18 07:00 47 18 154/67 (96) 98 01/23/18 04:22 98 60 01/23/18 04:00 97.9 62 16 154/65 (94) 99 01/23/18 00:00 60 01/23/18 00:00 97.0 59 16 159/71 (100) 100 01/22/18 20:56 99 60 01/22/18 20:00 60 01/22/18 20:00 97.0 56 16 153/69 (97) 100 01/22/18 19:00 60 Intake & Output 01/23/18 01/23/18 07:00 19:00 Intake Total 1315 ml Output Total 75 ml Balance 1240 ml IV Total 350 ml Tube Feeding 465 ml Other 500 ml Output Urine Total 75 ml # Bowel Movements 2 Physical Exam CONSTITUTIONAL/GENERAL: This is an elderly , ill looking female resting in bed in no acute distress. Bilateral temporal wasting noted. TUBES/LINES/DRAINS: PIV's. Tracheostomy, SCD, PEG tube. SKIN: Very pale. No jaundice. Ecchymoses on upper extremities. Skin temperature appropriate. Not diaphoretic. Rash to left breast. NECK: Trachea midline. Supple. Tracheostomy in place, on mechanical ventilation -full support. CARDIOVASCULAR: Junctional rhythm with heart rate in the low 40s. RESPIRATORY/CHEST: Symmetric, tracheostomy. Clear, diminished breath sounds bilaterally. GASTROINTESTINAL: Abdomen soft, round, distended. Bowel sounds active. PEG tube in place. GENITOURINARY: Without palpable bladder distension. MUSCULOSKELETAL: Extremities without clubbing, cyanosis. Muscle wasting to all 4 extremities. +1-2 pitting edema to bilateral lower extremity, +2 pitting edema to right hand. NEUROLOGICAL: Eyes closed. Not opening to verbal or tactile stimuli. PSYCHIATRIC: Unable to evaluate secondary to clinical condition. . Diagnostic Tests Laboratory Laboratory Tests Test 01/21/18 07:21 01/22/18 10:11 01/23/18 10:51 Blood Urea Nitrogen 71 MG/DL (7-18) 89 MG/DL (7-18) 98 MG/DL (7-18) Creatinine 2.05 MG/DL (0.50-1.00) 2.64 MG/DL (0.50-1.00) 3.12 MG/DL (0.50-1.00) Random Glucose 174 MG/DL (74-106) 136 MG/DL (74-106) 177 MG/DL (74-106) Albumin 2.7 GM/DL (3.4-5.0) 2.6 GM/DL (3.4-5.0) 2.2 GM/DL (3.4-5.0) Calcium Level 9.2 MG/DL (8.5-10.1) 9.9 MG/DL (8.5-10.1) 9.4 MG/DL (8.5-10.1) Phosphorus Level 1.5 MG/DL (2.5-4.9) 1.8 MG/DL (2.5-4.9) 2.4 MG/DL (2.5-4.9) Sodium Level 138 MEQ/L (136-145) 134 MEQ/L (136-145) 133 MEQ/L (136-145) Potassium Level 3.3 MEQ/L (3.5-5.1) 3.7 MEQ/L (3.5-5.1) 4.8 MEQ/L (3.5-5.1) Chloride Level 106 MEQ/L (98-107) 103 MEQ/L (98-107) 102 MEQ/L (98-107) Carbon Dioxide Level 19.6 MEQ/L (21.0-32.0) 17.8 MEQ/L (21.0-32.0) 18.1 MEQ/L (21.0-32.0) Anion Gap 12 MEQ/L (5-15) 13 MEQ/L (5-15) 13 MEQ/L (5-15) Estimat Glomerular Filtration Rate 24 ML/MIN (>89) 18 ML/MIN (>89) 15 ML/MIN (>89) White Blood Count 12.9 TH/MM3 (4.0-11.0) Red Blood Count 2.54 MIL/MM3 (4.00-5.30) Hemoglobin 7.9 GM/DL (11.6-15.3) Hematocrit 24.5 % (35.0-46.0) Mean Corpuscular Volume 96.5 FL (80.0-100.0) Mean Corpuscular Hemoglobin 31.2 PG (27.0-34.0) Mean Corpuscular Hemoglobin Concent 32.4 % (32.0-36.0) Red Cell Distribution Width 17.1 % (11.6-17.2) Platelet Count 243 TH/MM3 (150-450) Mean Platelet Volume 9.2 FL (7.0-11.0) Neutrophils (%) (Auto) 76.8 % (16.0-70.0) Lymphocytes (%) (Auto) 13.2 % (9.0-44.0) Monocytes (%) (Auto) 6.8 % (0.0-8.0) Eosinophils (%) (Auto) 2.5 % (0.0-4.0) Basophils (%) (Auto) 0.7 % (0.0-2.0) Neutrophils # (Auto) 9.9 TH/MM3 (1.8-7.7) Lymphocytes # (Auto) 1.7 TH/MM3 (1.0-4.8) Monocytes # (Auto) 0.9 TH/MM3 (0-0.9) Eosinophils # (Auto) 0.3 TH/MM3 (0-0.4) Basophils # (Auto) 0.1 TH/MM3 (0-0.2) CBC Comment AUTO DIFF Differential Comment AUTO DIFF CONFIRMED Platelet Estimate NORMAL (NORMAL) Platelet Morphology Comment NORMAL (NORMAL) Stomatocytes 1+ (NORMAL) Result Diagram: 01/23/18 1051 01/23/18 1051 Procedures * 08/05/17 -right thoracentesis * 05/16/17 -PEG tube placement * 05/15/17 -tracheostomy placement * 05/08/17 -left-sided chest tube/pigtail * 04/30/17 -endotracheal intubation * 04/21/17 -Left hip reduction and intramedullary nail fixation . 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 (2) Pain 0-10 Scale: Unable to quantify Comment: Secondary to surgical intervention, bedbound status, prolonged hospitalization. (3) Debility 0-10 Scale: Unable to quantify Comment: Progressive. Pertinent Non-Medical Issues Psychosocial: Patient is originally from [facility]. Residing in [place] up until 2013 she moved to [place] to live with only daughter Trice. Patient is a , in 2006. Spiritual: No voodoo affiliation. Legal: No advance directives completed. Ethical issues impacting care: Patient unable to participating in medical decision-making secondary to clinical condition. Patient's daughter acting as healthcare proxy decision maker. . Important Contacts Daughter Norma Salvador . . Prognosis Mrs. Hein needs a 76-year-old female with a past medical history of hypertension, diabetes mellitus and prior CVA. Presented with left hip fracture , underwent ORIF. Clinical course complicated by large left MCA infarct with edema. Overall prognosis is poor for a meaningful neurological recovery or long -term survival given acute stroke, chronic ongoing comorbidities and advanced age. Patient appears hospice appropriate should family elect comfort-directed care. . Code Status: Full Code Plan * CODE STATUS: FULL CODE. * HEALTHCARE DECISION-MAKING: Patient not capacitated for medical decision- making given severe stroke, will NOT to regain capacity. No advance directives completed, patient is . As per [place] statute, healthcare proxy decision-making falls to patient's only daughter Trice Salvador. * GOALS OF CARE: Goals of care readdressed 01/23/18. Daughter Trice Salvador acting as healthcare proxy decision maker electing to continue aggressive management. Telephone conversation with patient's daughter Trice Salvador. Medical update provided. Shared concerns of patient's current clinical condition to include worsening renal function, ventilator dependent respiratory failure, persistent pneumonia, leukocytosis with multiple active multi-drug- resistant infections, CHF, anemia and profound physical deconditioning. Reviewed no meaningful neurological recovery in the setting of MCA stroke over 9 months ago. Reviewed patient is NOT anticipated to recover. Reviewed that given her worsening clinical condition with prolonged hospitalization, patient appears to be approaching end of life in spite of aggressive management. Review that patient is not likely a candidate for hemodialysis given terminal condition -risks of SPINNING DOFFER greatly outweigh any benefit. Reviewed that she has the option to transition patient to comfort-directed care given patient's terminal condition. Daughter reiterated aggressive goals: "keep my mother alive " and terminated phone call. * Fadem HD mortality predictor given patient's current clinical condition is 86% . Patient is terminal, SPINNING DOFFER will not change her overall poor prognosis and it is only likely to cause increase symptom burden/pain and suffering at the end of life. * SYMPTOMS: * = Shortness of breath, chronic respiratory failure. Currently on full ventilator support. Sputum cultures with Pseudomonas Aeruginosa -multidrug- resistant. = Debility, progressive. Expected to worsen given acute stroke, multiple ongoing comorbidities, acute complications, advanced age and prolonged hospitalization. Not anticipated to recover. * Case discussed with Dr. Heaton, Dr. Minaya and bedside RN. * Palliative care contact information has been provided to patient's daughter. * Palliative care will continue to follow-up for further clarifications of goals of care as patient's clinical condition continues to evolve. . Time Spent Total Floor Time (mins): 42 (Total time to include review and summarization of medical records since last visit, physical exam, goals of care conversation with patient's daughter norma, case discussion with Dr. Heaton, Dr. Minaya and bedside RN.) >50% Counseling/Coord of Care: Yes Attestation To help prompt me to consider important information that might be impacting today's encounter and assessment, information from prior notes written by myself or my colleagues may have been "brought forward" into today's note. My signature on this note, however, is an attestation that I personally performed the exam, history, and/or decision-making noted today, and, unless otherwise indicated, the interactions with patient, family, and staff as well as the review of records all occurred today. I also attest that the listed assessment and stated plan reflect my best clinical judgment today based on the combination of historical information, prior notes, and today's exam/ interactions. When time spent is documented, it refers only to time spent today by the signer, or if indicated, combined time spent today by collaborating physician/nurse practitioner. Ashly Steven January 23, 2018 16:35
--- NOTE | 2018-01-23 17:14 | HHI.CCPN ---
Subjective Remarks/Hospital Course 04/24: 76-year-old female with a medical history significant for prior stroke, diabetes mellitus who was admitted with DKA and a hip fracture for which she underwent ORIF on 04/21. Patient developed altered mental status and was last noted to be okay around 5:30 AM. Subsequently there was a change in her mental status and she was noted to not be moving her right side for which stroke alert was called. Head CT showed large left MCA territory ischemic infarct with edema. Patient was transferred to the ICU by family medicine service in the critical care consult was requested. I evaluated the patient following arrival to the ICU. At that time she was laying in bed with her eyes open however not following commands and had a dense right hemiplegia. Patient was also evaluated by Dr. Malave from neurology. [facility] further discussed current event with patient's daughter following her arrival to the ICU. Per the daughter patient has been living with her since her stroke in 2014 and does ambulate however has been having problems with memory and incontinence as well as gait difficulties. She does not feel patient would want intubation or tracheostomy or PEG tube. 04/25: Patient remains encephalopathic, awake though not following commands consistently. Dense right hemiplegia persists. Appears to be awake enough to protect airway currently. Patient's daughter rescinded DNR and made a full code last evening. 04/26: Remains encephalopathic, not following commands. On Dobbhoff for tube feeds at 30 cc per hour. Had urinary retention and drained 2 L of urine after placing Moser catheter today. CT head done this morning with large left MCA territory infarct with left to right midline shift and significant cerebral edema. Hyperglycemia noted. Patient given mannitol earlier for increasing cerebral edema. 04/27: Remains encephalopathic, not following commands. On Dobbhoff tube feeds at 30 cc per hour. When into A. fib with RVR last night which responded with Lopressor 5 mg IV 1 dose. 04/28: Remains encephalopathic, arousable, not following commands. Moves left upper extremity spontaneously. Tolerating Dobbhoff tube feeds. Remains on nasal cannula. 04/29: Encephalopathic, eyes be arousable, moves left upper extremity spontaneously and occasionally opens eyes. Dense right hemiplegia and aphasia persists. On nasal cannula. Dobbhoff tube feeds being advanced. Patient was transfused 1 unit PRBCs yesterday. Urine culture with yeast from yesterday for which fluconazole being started. Had brief run of A. fib with RVR which improved with Lopressor IV, currently in sinus rhythm. 04/30: Worsening hypoxemic respiratory failure, currently on partial nonrebreather. Remains lethargic. WBC count increased from 14.6 today 20.7. Chest x-ray shows bilateral worsening infiltrates and small pleural effusions. Sodium 154, weight up by 8 KG. Albumin 1 mg Bumex 1. Also one dose of albumin. Remains in sinus tachycardia. Tmax 101.3 05/01: Patient was intubated yesterday for lack of airway protection, and severe hypoxemic respiratory failure from aspiration pneumonia involving multiple lobes. Patient is on the vent lethargic, no spontaneous eye opening. Chest x- ray remains unchanged. Remains intermittently febrile Tmax 101.3. WBC count improving 05/02: Remains critically ill with no improvement in mental status. Spiking fever of 101.7. Blood culture and sputum culture with staph aureus sputum also growing GNR, WBC count 22,000 now indicating worsening sepsis. Daughter still requesting aggressive care. Palliative care is following 05/03: S/P large area dominant hemisphere CVA. No neurological improvement. Now with pneumonia (infiltrate, fever, leukocytosis) and appropriate abx coverage. She will have a hard time surviving the hip fx, CVA, and pneumonia. Palliative Care needs to be a mainstay of our plan. 05/04: No improvement in neuro status. Sputum C&S allows us to narrow abx coverage to levaquin alone. Lungs remain quite congested. Enteral nutrition tolerated. 05/05: No improvement in neuro status. Moves left arm spontaneously. Flaccid right side. Unresponsive. Persistent mild hypoglycemia - will cut Levemir 50%. Abdomen more distended, check KUB. 05/06: CT head with massive left MCA infarction and > 1 cm shift in right handed woman. She opens eyes, does not track. 05/07: Patient open eyes. Attempts to respond. Latvian speaking. Tolerating tube feeds. Positive bowel movement. Volume overloaded. 05/08: Tmax 99.4. Potassium being replaced. Ultrasound gallbladder currently pending. Transaminases are trending downward. Gently diurese. 05/09: Alk phos decreasing. Remains with good urine output. Neurological status not improving. 05/10: Fixed neuro deficit unchanged. Profound CVA. 05/11: Appears to track with eyes today. No improvement in motor function. Remains very edematous, diuretics doubled. 05/12: Continued thick secretions. Afebrile, leukocytosis resolved. 05/13: CT head with completed left MCA stroke, persistent edema and 5 mm shift away. Does not last long on SBTs - major decision now is trach/PEG. 05/14: Daughter has decided to proceed with trach and PEG. I have been pessimistic with her about chances for a meaningful recovery. 05/15: Plan for trach today. No change in neuro status. Still ventilator dependent. 05/16: Trach completed. Await PEG and disposition. 05/17: PEG placed 05/16. Start TFs today after nutrition consult. Work to place patient. 05/18: No improvement. Does open eyes, no focus or tracking. Completed large dominant (left) hemisphere CVA in right handed woman with severe deficit. Medicaid pending status, [employer] is following. 05/19: no improvements in neuro exam. ready for LTAC. will d/c moser and rectal tubes. 05/20: no changes or improvements. very difficult placement due to patient not [place] citizen. 05/21: no improvements. resting on vent overnight due to distress. 05/22: no neurologic changes. no improvements. attempted T-piece which failed after 10 minutes. 05/23: no improvements. poor prognosis. poor neuro exam. still failing weaning trials. 05/24: no improvements or changes. still failing t-piece trials. 05/25: No acute changes of improvement overnight. Failed CPAP due to apnea, tried again currently tolerating. Neurological exam unchanged. 05/26: No improvement in neurological function. 05/27: Patient has required Moser catheter because of breakdown of skin on upper thighs and groin. Urine has become infected, will treat. 05/28: Some drainage from around trach (placed 2 weeks ago). Will change out trach tube and inspect neck wound. I&O straight cath q6h order entered 05/17. 05/29: No improvement, remains obtunded. Failed CPAP trials yesterday and again today due to apnea. Moser placed due to persistent urinary retention 05/30: Obtunded, unresponsive. Failed SBTs, remains ventilator dependent. 05/31: Patient continues to fail SBT failed yesterday due to apnea. Neuro exam remains unchanged. 06/01: No acute changes overnight, 06/02: no changes. ekg done overnight for ? EKG changes seen on telemetry which were not visualized on EKG. 06/03: no improvements or changes. had long conversation with daughter yesterday. only facility which would accept patient is in [place] and daughter is refusing to allow patient to go there because it is "too far away." Daughter continues to push for aggressive care despite no improvements, and resistant to Hospice. Patient does not need acute inpatient therapy but lacks funding for appropriate disposition. 06/04: No acute events overnight, failed SBT due to apnea. 06/05: No acute events, continues to fail spontaneous breathing trials. Unable to wean 06/06 Currently tolerating CPAP. Will attempt TP today up to 4 hours. No acute events overnight 06/07: Tolerating trach collar/T-piece. Transfer soon. 06/08: Awaiting transfer. 06/09: Remains ventilator dependent. No improvement in neurological function. 06/10: No improvement. Daughter is not attending preplanned meetings to discuss disposition 06/12: Afebrile. Neurologically stable and unchanged. Noted sodium 135. Adding sodium chloride tablets 1 today. Not on free water.. Tolerating tube feeds at goal 45 cc an hour. 06/13: No improvement in neurological function. 06/14: No improvement. Fluid balance correct. Gas exchange acceptable. 06/15: No improvement. Obtunded and unresponsive. 06/16: no improvements in mental status. KUB overnight with dilated small bowel loops. given methylnaltrexone and erythromycin. today abdomen is soft and tolerating tube feeds. 06/17: tolerated t-piece x 6 hours yesterday. rested on cpap overnight. no changes in encephalopathy. 06/18: Currently on ventilator overnight. Multiple bowel movements. Thick yellow secretions noted in ventilator circuit. Opens eyes. 06/19: Afebrile. Tolerating stretcher chair yesterday on PSV. Tolerating tube feeding. Neurologically unchanged. 06/20: Afebrile. Resting in bed in no acute distress in sitting position. Currently on ventilator set sitting. Tolerated stretcher chair/PSV trial 6 hours yesterday. Neurologically unchanged. 06/21: Tmax 100.8. Patient with copious thick yellow secretions. Tolerating tube feeds. Positive bowel movement. Lasted only 1 hour PSV yesterday 06/22: Tmax 99.9. Continues to have thick secretions. Tolerating tube feeding. Positive BM. 06/23: Afebrile. Continues to have thick tracheal secretions from tracheostomy site. Tolerating tube feeding. 3 bowels movements. Opens eyes to stimulation. Stares at you but does not follow commands. 06/24: Remains encephalopathic, on mechanical ventilation via tracheostomy. Tolerating PEG feeds 06/25: Remains encephalopathic on mechanical ventilation. Tolerated C Pap +5 with pressure support +10 all day yesterday. Tolerating PEG feeds. 06/26: No improvement.Vent dependent still. 06/27: Remains encephalopathic, on mech vent via trach. Daily CPAP trials. 06/28: Unable to wean from ventilator. 06/29: Neurologically unchanged. Remains on mechanical ventilation. Daily C Pap trials ongoing. 06/30: Remains encephalopathic. On C Pap overnight. Tolerating tube feeds. 07/01: No change in neurologic status. On mechanical ventilation via tracheostomy. Tolerating tube feeds. 07/02: Remains encephalopathic. No change in neurologic status. On mechanical ventilation via tracheostomy. Daily C Pap trials ongoing. 07/03: Occasional spontaneous eye opening however remains encephalopathic. On mechanical ventilation via tracheostomy. 07/04: Tmax 99.2. Multiple bowel movements overnight. Tolerating tube feeds. On T piece trial at 5 L since noon yesterday. Otherwise neurologically unchanged. Daughter encouraged by movement of left leg. 07/05: Currently resting in bed on T piece 36 hours. Tolerates chair. No changes neurologically. Positive BM's. Tolerating her tube feeding. 07/06: Continue T-piece trials, if tolerated consider transfer to floor. 07/07: Extended T-piece trial. Plan transfer to floor. 07/09: Patient is experiencing apnea episodes and had to be placed back on higher FiO2.. Hold transfer. 07/10: X-ray left hip shows good anatomic alignment. Still requiring elevated FiO2. 07/11: Prealbumin 20, nutritional support is adequate and status is stable. No neurological improvement. 07/12: No improvement in neurological function. Continued acceptable respiratory effort. 07/13: No change. 10/03/17 Dr. Rizo notified executive consultant that patient would be transferring to ICU. Patient is known to [facility] service. She was originally admitted 04/20/17 after a fall with hip fracture resulting in ORIF 04/21. Postoperatively, she developed large R MCA stroke with midline shift. Her neurologic condition remained poor and she underwent trach 05/15/17 and PEG 05/16/17. She was eventually transitioned to Tpiece and transferred to floor. She has suffered from multiple infectious complications due to her persistent bedfast and trach dependent state. 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 She has been on trach collar with worsening hypoxemia therefore she is transferred to [facility]. CXR from yesterday demonstrates bilateral pulmonary infiltrates. She has also had hyperkalemia today up to 6.7 which has been treated with kayexalate, down to 6. 2: improvement in air space disease with diuresis and bronch yesterday. no overall improvements in chronic poor prognosis. unlikely to survive this hospital stay. daughter has poor insight into the gravity of her mother's medical condition. she will not recover meaningfully. 10/05: continuing to clinically improve from a respiratory standpoint. no improvements in overall poor function. off vent on t-piece today. can likely transition out of ICU tomorrow. 10/06 No events overnight. Remains on ventilator via trach. Afebrile. 10/07 No events overnight. Afebrile. 10/08 Patient is on ventilator via trach. afebrile. 10/09 No events overnight. Tolerating tube feeds. Afebrile. 10/10 Patient is on ventilators via trach. 10/11: Nursing reported patient intermittently follow commands today. BUN slightly elevated. Patient tolerating tube feeding 10/12: The patient tolerated CPAP for approximately 6 hours yesterday. No acute changes overnight. No neurological change in status. 10/13 No events overnight. Afebrile. 10/14 Patient remains on ventilator via trach. Afebrile. Didn't tolerate CPAP trials earlier today. 10/15: no changes. patient remains on the ventilator. unable to wean. 10/16: no improvements. no changes. PSV trials ongoing, not ready for SBT. 10/17 No events overnight. On CPAP. 10/18 Patient remains on ventilator via trach tolerating CPAP trials. 10/19 No events overnight. afebrile. WBC is trending down. 10/20 Patient is on CPAP with PS 15, PEEP:5 Awake, afebrile. 10/21, 10/22, 10/23: Remains on mechanical ventilation via tracheostomy. 10/24 No events overnight. On CPAP with PS 12, PEEP:5 and FIO2 30%,. 10/25 Labs pending. Afebrile. 10/26: Afebrile. Bradycardic. No new issues past 24 hours. Appears comfortable on Vent. 10/27 No events overnight. Afebrile. On TP's with 50% FIO2. 10/28 Patient remains on TP's with 50% FIO2. Afebrile. 10/29: Remains on 35% TP. Had been on T piece without going back on the vent for last 3 days Subjective RECONSULT NOTE: 01/23: reconsulted for patient with worsening acute kidney injury in the setting of acute on chronic illness. Discussed case extensively with palliative care and with Dr. David. Although we must honor the daughter' s wishes to continue aggressive medical care, renal replacement therapy and placement of dialysis catheter access is a medical procedure that comes with potential risks and benefits, and as healthcare providers, we are obligated to assess the relative risks, benefits, and alternative therapies that exist in our efforts to first do no harm and provide medically appropriate therapy to patients. Certainly in this patient who has been ill for months now, adding additional central access for renal replacement therapy is not without risk, which includes bleeding risk, damage to surrounding vascular structures given multiple prior central access catheters, and in this patient with already 6 different active infections at this point, a heightened infection risk for additional blood stream infections and catheter related infections. Additional risks for renal replacement therapy would include electrolyte shifts and intravascular volume shifts leading to hemodynamic instability and worsening of her other end-organ dysfunction. Alternatives would be peritoneal dialysis, which is not appropriate in this setting, or ongoing diuresis efforts, which we are actively doing. I cannot find any overall meaningful benefit that comes from renal replacement therapy in this patient at this present time. The patient is encephalopathic and has had no meaningful neurologic recovery for months. Renal replacement therapy would not increase the likelihood that she regains any further amount of meaningful neurologic function. Renal replacement therapy does not address or improve any of the 6 current infections she is being treated for (and potentially worsens them). Although it may improve her electrolyte and fluid balance, neither fluids nor electrolytes change her overall prognosis, which is poor for any clinical improvement. Furthermore, then [place] [employer] have published guidelines in the Journal of the [place] [employer] from 2010 (second edition) which gives us guidance, entitled "Clinical Practice Guideline on Shared Decision-Making in the Appropriate Initiation of and Withdrawal from Dialysis." In these published guidelines, it states in Recommendation No. 5: "Making a decision to not initiate or to discontinue dialysis", "If appropriate, forgo (withhold initiating or withdraw ongoing) dialysis for patients with MIRIAM, CKD< or ESRD in certain well-defined situations." The 4th of these situations is: "Patients with irreversible, profound neurological impairment such that they lack signs of thought, sensation , purposeful behavior, and awareness of self and environment." Certainly, this patient has such profound neurological impairment, and while I cannot confirm that she truly lacks sensation (she is too encephalopathic to tell with definity what her ability to process sensation and pain is), she certainly lacks signs of thought, purposeful behavior, and awareness of self and environment. Taken together, it is my medical opinion that the patient has not met any criteria that suggests that the benefits of initiating the procedure of renal replacement therapy outweigh the risks, and the ASN/RPA has given guidelines suggesting that this patient likely falls within a group for which initiation of renal replacement therapy is contra-indicated, and thus I do not believe renal replacement therapy is indicated in this patient at this time. I believe that it provides the real risk of harm without meaningful benefit. I will not initiate renal replacement therapy at this time. I have discussed the case with Dr. David who agrees with my assessment, and also with Dr. Minaya who has agreed to convene the Bioethics committee to review the case. I welcome their thoughtful input, as we move forward with attempting to provide the best care and therapy which is appropriate for Ms. Hein. The patient is encephalopathic and unresponsive and cannot provide any history or review of systems. Objective Vital Signs Date Time Temp Pulse Resp B/P (MAP) Pulse Ox O2 Delivery O2 Flow Rate FiO2 01/23/18 16:08 96 40 01/23/18 16:00 43 14 98/51 (67) 01/23/18 08:00 99.8 Intake and Output 01/23/18 01/23/18 01/23/18 07:59 15:59 23:59 Intake Total 1315 ml Output Total 75 ml Balance 1240 ml Result Diagram: 01/23/18 1051 01/23/18 1051 Imaging Last Impressions Chest X-Ray 10/27/17 0600 Signed Impressions: Service Date/Time: Friday, October 27, 2017 04:26 - CONCLUSION: 1. Mild positive fluid balance which appears slightly more prominent likely due to the lower lung volumes. 2. Mild bibasilar airspace disease, presumably atelectasis. Alejo De La Vega MD Abdomen X-Ray 10/10/17 0000 Signed Impressions: Service Date/Time: Tuesday, October 10, 2017 11:35 - CONCLUSION: No dilated bowel loops. Benja Ramsey MD Thoracentesis 08/05/17 1535 Signed Impressions: Service Date/Time: Saturday, August 05, 2017 16:08 - CONCLUSION: Uncomplicated CT-guided thoracentesis. Sage Adler MD Chest Ultrasound 08/02/17 0000 Signed Impressions: Service Date/Time: Tuesday, August 01, 2017 22:06 - CONCLUSION: 1. Moderate right pleural effusion, as above. Alejo De La Vega MD Hip and Pelvis X-Ray 07/09/17 0000 Signed Impressions: Service Date/Time: Sunday, July 09, 2017 14:04 - CONCLUSION: Anatomic alignment. Ricardo Middleton MD FACR Liver Ultrasound 06/19/17 0000 Signed Impressions: Service Date/Time: June 13:20 - CONCLUSION: 1. Mildly increased echotexture of the liver characteristic of hepatic steatosis. 2. Gallbladder sludge. Obdulio Sam MD Head CT 05/15/17 0000 Signed Impressions: Service Date/Time: May 19:59 - CONCLUSION: 1. 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 2. No bleed or new/acute infarct. Obdulio Simms MD Gall Bladder Ultrasound 05/08/17 0000 Signed Impressions: Service Date/Time: May 08:23 - CONCLUSION: Focally unremarkable appearance of the gallbladder Obdulio Chun MD Abdomen/Pelvis CT 05/07/17 0000 Signed Impressions: Service Date/Time: Sunday, May 07, 2017 13:23 - CONCLUSION: 1. Large left pneumothorax. 2. Bilateral lower lobe consolidation and bilateral moderate size pleural effusions. 3. Significant soft tissue thickening of the right lateral chest wall and left gluteus muscle. 4. Mild ascites. The findings were called to Dr. Carney. Deangelo Zamora MD Chest CT 04/30/17 0000 Signed Impressions: Service Date/Time: Sunday, April 30, 2017 09:20 - CONCLUSION: 1. Bilateral pulmonary infiltrates more pronounced within the lower lobes with tiny bilateral pleural effusions. Material seen filling the lower lobe bronchi bilaterally either related to purulent material or perhaps mucus plugging. Deangelo Wren Jr., MD Carotid Artery Ultrasound 04/24/17 0000 Signed Impressions: Service Date/Time: April 09:45 - CONCLUSION: 1. No hemodynamically significant carotid artery stenosis. Arnie Middleton MD Hip X-Ray 04/21/17 0000 Signed Impressions: Service Date/Time: Friday, April 21, 2017 11:36 - CONCLUSION: Fluoroscopic images during placement of intramedullary siomara left femur. Benja Ramsey MD Procedures PEG tube trach 05/15/17 and PEG 05/16/17 Objective Remarks GENERAL: cachectic, frail elderly female, lying in bed on vent via tracheostomy. HEAD: Atraumatic. Normocephalic. no thrush. NECK: 8.[address] Trachea midline[address] No JVD. CARDIOVASCULAR: Bradycardic, RR. S1, S2. No S4. No M/C/G/R RESPIRATORY: on full vent support. PRVC. equal chest rise. GASTROINTESTINAL: Abdomen soft, non-tender, nondistended. PEG in place site benign appearing. MUSCULOSKELETAL: Extremities without significant peripheral edema. No obvious deformities. 2+ edema. NEUROLOGICAL: Eyes open spontaneously, L gaze preference. R side flaccid. A/P Assessment and Plan Assessment: 77yF with catastrophic MCA CVA with permanent devastating neurologic injury who has had a prolonged hospitalization with multiple healthcare associated conditions including now 6 active infections, pressure ulcers, and now full ventilator dependent. She has a terminal prognosis and will not survive this hospitalization. Despite months of counseling by multiple physicians spread amongst multiple medical specialties, her daughter and healthcare surrogate continues to urge for aggressive therapy and is convinced her mother will make a complete recovery. Now with acute kidney injury which is actively worsening despite aggressive medical therapy. As per the above discussion, it is not medically appropriate to pursue renal replacement therapy in this patient in her current clinical condition. We will await Bioethics recommendation and feedback. in the interim, will continue with the current medical plan of care. While I do not think CPR and ACLS will improve her outcome, and I believe it to be futile, ultimately in the [facility], it is the daughter's prerogative and she insists on resuscitative efforts to be continued. Highly complex patient with multiple ongoing medical issues. Neuro/Psych: Left MCA CVA - 5.5 mm of [id number] subfalcine herniation, diagnosed 04/24. Persistent right-sided hemiparesis. Also prior h/o Stroke Continue Aspirin 325 mg by tube daily. Stroke occurred 04/24/17. Patient was not a candidate for thrombolysis per discussion with neurology and radiology at that time. Repeat head CT 05/15 showed slight improvement in the midline shift now 5.5 mm and mass effect Neurosurgery consulted 04/30- Dr. López, recommended conservative management, now signed off. Neurology Dr. Malave has followed previously, signed off. Acetaminophen 650 mg PEG q6h prn fever. Cardiovascular: Essential Hypertension Chronic systolic and diastolic heart failure Amlodipine 10 mg po daily, Doxazosin 1 mg peg daily, hydralazine 10 mg per per peg q8 hours. Clonidine 0.1 mg q6h prn SBP >160 Echo 10/06/17 LVSF is severely reduced with an estimated ejection fraction in the range of 25-30%. Doppler parameters are consistent with impaired left ventricular relaxation (grade 1 diastolic dysfunction). There is diffuse global hypokinesis with distinct regional WMA. Normal LV size. Wall thickness is normal. Mid anterolateral, apical, and inferoapical akinesis. Pulmonary: Chronic Tracheostomy Recurrent episode Acute hypoxemic respiratory failure Acute hypoxic respiratory failure - aspiration possible HCAP - previous episode resolved. Large left pneumothorax status post #10 Kinyarwanda chest tube 05/07 - resolved.Chest tube d/c'd 05/12/17 R pleural effusion - continue full vent support. no SBTs given her volume overload. Ipratropium/albuterol aerosols every 6 hours with albuterol aerosols every 2 hours prn dyspnea Pulm toilet, [facility] care Pulmonology is following, Dr. Rizo GI/liver: Elevated transaminases, resolved Severe acute protein calorie malnutrition Small bowel ileus- resolved Hepatitis C antibody positive with negative genotype/viral load Hepatic steatosis Currently on PEG tube feeding with Glucerna 1.5 goal 45 cc an hour per nutrition rec 10/20/17. KUB abdomen 10/10: No dilated bowel loops Beneprotein tid prn constipation. Lansoprazole 30 mg daily for GI regimen Endocrine: Diabetes mellitus SSI Novulin R High-dose every 6 hours, Levemir insulin 8u Q12 /Renal/FEN: Hypernatremia, resolved Monitor renal function. I/O's, electrolytes replacement as needed Heme: Chronic Rivaroxaban use prior to admission Leukocytosis Normocytic anemia Follow CBC and coags. ID: Serratia Marcescens VAP E. 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 Serratia/staph aureus pneumonia - resolved. C glabrata UTI - recurrent Citrobacter UTI - resolved. Serratia/MSSA sputum VAP recurrent Current relevant cultures: 09/25/17 -sputum culture - Pseudomonas aeruginosa, multidrug resistant ( including Zerbaxa and Avycaz resistance). s/p Colistin nebs(09/30- 10/21) Per ID sputum cx from 10/18: (Serratia Marcescens) urine from 10/18 - (E. Faecium VRE) Lactobacillus 1 tab bid Prior cultures: Urine culture 04/26/17 sofie glabrata Blood culture 04/29/17 1 out of 4 bottles staph aureus Sputum culture 04/30/17 MSSA and Serratia. urine 05/07-> Serratia, treated. Urine 05/25: Citrobacter MSK: Left Intertroch Hip Fx s/p IMN 04/21/17. Vitamin D deficiency Sacral decubitus ulcer, Previously stage III, healing. Nonstageable pressure wound MTP L foot - Podiatry evaluated 10/23 and recommended against debridement because it would likely leave joint capsule exposed with rapid progression to osteomyelitis. Wound care following. Continue calcium vitamin D 250/125 one tablet 3x a day and cholecalciferol 5000 units daily. PT/OT evaluate and treat Cleanse buttock area with incontinence barrier wipes and apply Calazime barrier cream BID and PRN and leave open to air Apply skin prep to L medial foot DTI Continue to turn patient every 2 hours or PRN for comfort. Please use one UltraSorb for moisture. Please use flat sheet for repositioning on specialty surface. Continue Beneprotein one packet 3x a day prn Prophylaxis: SCDs. Heparin 5000 subcutaneous q8 hours. GI - Lansoprazole 30 mg by PEG tube daily ACCESS: PIV. Dispo: remain in [facility]. palliative following. Anuj Heaton MD January 23, 2018 17:14
[2018-01-24] VITALS (14 sets, daily range): BP systolic 76–121; BP diastolic 33–64; PULSE 25–50; RESP 14–28; TEMP 97–101; O2SAT 60–99
[2018-01-24] MEDS: FREE WATER G-TUBE SCH (05:07)
[2018-01-24] MEDS: hydrALAZINE HCL 10 MG TAB PEG SCH (05:07)
[2018-01-24] MEDS: INSULIN NovoLIN REGULAR SUPPLEMENTAL SCALE SQ SCH (06:55)
[2018-01-24] MEDS: RESP: COLISTIN 150 MG VIAL NEB SCH (08:00)
[2018-01-24] MEDS ORDERED: CEFEPIME INJ 2,000 MG in SODIUM CHLORIDE 0.9% INJ 100 ML IV SCH (09:00)
[2018-01-24] MEDS: LINEZOLID 600 MG TAB PO SCH ×2 (09:00→19:58)
[2018-01-24] MEDS: LORazepam 2 MG/ML VIAL IV PUSH STA ×2 (09:46→10:09)
--- NOTE | 2018-01-24 09:51 | HHI.PR ---
Subjective Remarks no improvements. all systems worse. agonal on the ventilator. in clear distress. I had an additional conversation with her daughter and reiterated everything that has already been discussed. far too ill to tolerate any amount of dialysis. daughter expresses she does not want her mother to suffer and would like to change our goals to palliation. palliative comfort meds ordered. DNR status entered at daughters request. Anuj Heaton MD January 24, 2018 09:51
[2018-01-24] MEDS ORDERED: MORPHINE SULFATE 4 MG/ML INJ IV PUSH PRN (10:00)
[2018-01-24] MEDS ORDERED: LORazepam 2 MG/ML VIAL IV PUSH PRN (10:00)
[2018-01-24] MEDS: LORazepam 2 MG/ML VIAL IV PUSH SCH ×7 (10:00→22:14)
[2018-01-24] MEDS: MORPHINE SULFATE 4 MG/ML INJ IV PUSH SCH ×8 (10:00→22:13)
--- NOTE | 2018-01-24 12:27 | HHI.PR ---
Subjective Remarks On AC 16, Fi02 60% No fever Moderate amount of thick mucous Decreased urine out put had Lasix More swelling of body Decreased Urine output, worsening renal functions Does't respond seen by Sudarshan arevalo , not a candidate for renal replacement therapy Objective Vital Signs Vital Signs Date Time Temp Pulse Resp B/P (MAP) Pulse Ox O2 Delivery O2 Flow Rate FiO2 01/24/18 08:00 100.2 40 22 115/56 (75) 99 01/24/18 07:58 95 60 01/24/18 04:45 95 60 01/24/18 04:10 97.6 50 16 112/64 (80) 97 01/24/18 01:30 98 50 01/24/18 00:00 97.0 45 16 121/58 (79) 98 01/23/18 23:00 35 01/23/18 22:30 98 50 01/23/18 20:01 96.4 43 17 101/51 (68) 95 01/23/18 20:00 35 01/23/18 20:00 40 01/23/18 19:22 97 40 01/23/18 16:08 96 40 01/23/18 16:00 100.8 43 14 98/51 (67) 95 01/23/18 15:00 38 16 110/50 (70) 93 01/23/18 14:00 40 01/23/18 14:00 40 14 114/55 (74) 93 01/23/18 13:22 96 40 01/23/18 13:00 35 12 105/50 (68) 94 I/O 01/23/18 01/23/18 01/23/18 01/24/18 01/24/18 01/24/18 07:00 15:00 23:00 07:00 15:00 23:00 Intake Total 1315 ml 840 ml 840 ml Output Total 75 ml 0 ml 50 ml Balance 1240 ml 840 ml 790 ml IV Total 350 ml Tube Feeding 465 ml 540 ml 540 ml Other 500 ml 300 ml 300 ml Output Urine Total 75 ml 0 ml 50 ml Tube Feeding Residual Discard 0 ml # Bowel Movements 1 2 1 Result Diagram: 01/23/18 1051 01/23/18 1051 Objective Remarks GENERAL: Elderly female,NAD SKIN: Warm and dry. HEAD: Normocephalic. EYES: No scleral icterus. No injection or drainage. NECK: Supple, trachea midline. No JVD or lymphadenopathy. + trach CARDIOVASCULAR: Regular rate and rhythm without murmurs, gallops, or rubs. RESPIRATORY: Breath sounds equal bilaterally. No accessory muscle use. Decreased BS Right GASTROINTESTINAL: Abdomen soft, non-tender, nondistended. MUSCULOSKELETAL: No cyanosis, or edema. BACK: Nontender without obvious deformity. No CVA tenderness. A/P Assessment and Plan Chronic resp failure, ,S/P Trach CVA Pneumonia Calcified Granuloma LLL Pseudomonas Tracheobronchitis, AFB Positive in BAL, PCR negative for MTB Worsening renal functions Encephalopathy PLAN: Vent support , AC 16, 60% Bronchodilators, IV Zosyn Colistin Nebs Monitor renal functions. Poor candidate for HD, per renal Prognosis grave, comfort care appropriate Chris Rizo MD January 24, 2018 12:27
[2018-01-24] MEDS: LORazepam 2 MG/ML VIAL IV PUSH PRN ×5 (13:00→15:57)
[2018-01-24] MEDS: MORPHINE SULFATE 4 MG/ML INJ IV PUSH PRN ×6 (13:00→19:36)
--- NOTE | 2018-01-24 13:33 | HHI.CCPN ---
Subjective Remarks/Hospital Course 04/24: 76-year-old female with a medical history significant for prior stroke, diabetes mellitus who was admitted with DKA and a hip fracture for which she underwent ORIF on 04/21. Patient developed altered mental status and was last noted to be okay around 5:30 AM. Subsequently there was a change in her mental status and she was noted to not be moving her right side for which stroke alert was called. Head CT showed large left MCA territory ischemic infarct with edema. Patient was transferred to the ICU by family medicine service in the critical care consult was requested. I evaluated the patient following arrival to the ICU. At that time she was laying in bed with her eyes open however not following commands and had a dense right hemiplegia. Patient was also evaluated by Dr. Malave from neurology. [facility] further discussed current event with patient's daughter following her arrival to the ICU. Per the daughter patient has been living with her since her stroke in 2014 and does ambulate however has been having problems with memory and incontinence as well as gait difficulties. She does not feel patient would want intubation or tracheostomy or PEG tube. 04/25: Patient remains encephalopathic, awake though not following commands consistently. Dense right hemiplegia persists. Appears to be awake enough to protect airway currently. Patient's daughter rescinded DNR and made a full code last evening. 04/26: Remains encephalopathic, not following commands. On Dobbhoff for tube feeds at 30 cc per hour. Had urinary retention and drained 2 L of urine after placing Moser catheter today. CT head done this morning with large left MCA territory infarct with left to right midline shift and significant cerebral edema. Hyperglycemia noted. Patient given mannitol earlier for increasing cerebral edema. 04/27: Remains encephalopathic, not following commands. On Dobbhoff tube feeds at 30 cc per hour. When into A. fib with RVR last night which responded with Lopressor 5 mg IV 1 dose. 04/28: Remains encephalopathic, arousable, not following commands. Moves left upper extremity spontaneously. Tolerating Dobbhoff tube feeds. Remains on nasal cannula. 04/29: Encephalopathic, eyes be arousable, moves left upper extremity spontaneously and occasionally opens eyes. Dense right hemiplegia and aphasia persists. On nasal cannula. Dobbhoff tube feeds being advanced. Patient was transfused 1 unit PRBCs yesterday. Urine culture with yeast from yesterday for which fluconazole being started. Had brief run of A. fib with RVR which improved with Lopressor IV, currently in sinus rhythm. 04/30: Worsening hypoxemic respiratory failure, currently on partial nonrebreather. Remains lethargic. WBC count increased from 14.6 today 20.7. Chest x-ray shows bilateral worsening infiltrates and small pleural effusions. Sodium 154, weight up by 8 KG. Albumin 1 mg Bumex 1. Also one dose of albumin. Remains in sinus tachycardia. Tmax 101.3 05/01: Patient was intubated yesterday for lack of airway protection, and severe hypoxemic respiratory failure from aspiration pneumonia involving multiple lobes. Patient is on the vent lethargic, no spontaneous eye opening. Chest x- ray remains unchanged. Remains intermittently febrile Tmax 101.3. WBC count improving 05/02: Remains critically ill with no improvement in mental status. Spiking fever of 101.7. Blood culture and sputum culture with staph aureus sputum also growing GNR, WBC count 22,000 now indicating worsening sepsis. Daughter still requesting aggressive care. Palliative care is following 05/03: S/P large area dominant hemisphere CVA. No neurological improvement. Now with pneumonia (infiltrate, fever, leukocytosis) and appropriate abx coverage. She will have a hard time surviving the hip fx, CVA, and pneumonia. Palliative Care needs to be a mainstay of our plan. 05/04: No improvement in neuro status. Sputum C&S allows us to narrow abx coverage to levaquin alone. Lungs remain quite congested. Enteral nutrition tolerated. 05/05: No improvement in neuro status. Moves left arm spontaneously. Flaccid right side. Unresponsive. Persistent mild hypoglycemia - will cut Levemir 50%. Abdomen more distended, check KUB. 05/06: CT head with massive left MCA infarction and > 1 cm shift in right handed woman. She opens eyes, does not track. 05/07: Patient open eyes. Attempts to respond. O[place]i speaking. Tolerating tube feeds. Positive bowel movement. Volume overloaded. 05/08: Tmax 99.4. Potassium being replaced. Ultrasound gallbladder currently pending. Transaminases are trending downward. Gently diurese. 05/09: Alk phos decreasing. Remains with good urine output. Neurological status not improving. 05/10: Fixed neuro deficit unchanged. Profound CVA. 05/11: Appears to track with eyes today. No improvement in motor function. Remains very edematous, diuretics doubled. 05/12: Continued thick secretions. Afebrile, leukocytosis resolved. 05/13: CT head with completed left MCA stroke, persistent edema and 5 mm shift away. Does not last long on SBTs - major decision now is trach/PEG. 05/14: Daughter has decided to proceed with trach and PEG. I have been pessimistic with her about chances for a meaningful recovery. 05/15: Plan for trach today. No change in neuro status. Still ventilator dependent. 05/16: Trach completed. Await PEG and disposition. 05/17: PEG placed 05/16. Start TFs today after nutrition consult. Work to place patient. 05/18: No improvement. Does open eyes, no focus or tracking. Completed large dominant (left) hemisphere CVA in right handed woman with severe deficit. Medicaid pending status, [facility] is following. 05/19: no improvements in neuro exam. ready for LTAC. will d/c moser and rectal tubes. 05/20: no changes or improvements. very difficult placement due to patient not [place] citizen. 05/21: no improvements. resting on vent overnight due to distress. 05/22: no neurologic changes. no improvements. attempted T-piece which failed after 10 minutes. 05/23: no improvements. poor prognosis. poor neuro exam. still failing weaning trials. 05/24: no improvements or changes. still failing t-piece trials. 05/25: No acute changes of improvement overnight. Failed CPAP due to apnea, tried again currently tolerating. Neurological exam unchanged. 05/26: No improvement in neurological function. 05/27: Patient has required Moser catheter because of breakdown of skin on upper thighs and groin. Urine has become infected, will treat. 05/28: Some drainage from around trach (placed 2 weeks ago). Will change out trach tube and inspect neck wound. I&O straight cath q6h order entered 05/17. 05/29: No improvement, remains obtunded. Failed CPAP trials yesterday and again today due to apnea. Moser placed due to persistent urinary retention 05/30: Obtunded, unresponsive. Failed SBTs, remains ventilator dependent. 05/31: Patient continues to fail SBT failed yesterday due to apnea. Neuro exam remains unchanged. 06/01: No acute changes overnight, 06/02: no changes. ekg done overnight for ? EKG changes seen on telemetry which were not visualized on EKG. 06/03: no improvements or changes. had long conversation with daughter yesterday. only facility which would accept patient is in [place] and daughter is refusing to allow patient to go there because it is "too far away." Daughter continues to push for aggressive care despite no improvements, and resistant to Hospice. Patient does not need acute inpatient therapy but lacks funding for appropriate disposition. 06/04: No acute events overnight, failed SBT due to apnea. 06/05: No acute events, continues to fail spontaneous breathing trials. Unable to wean 06/06 Currently tolerating CPAP. Will attempt TP today up to 4 hours. No acute events overnight 06/07: Tolerating trach collar/T-piece. Transfer soon. 06/08: Awaiting transfer. 06/09: Remains ventilator dependent. No improvement in neurological function. 06/10: No improvement. Daughter is not attending preplanned meetings to discuss disposition 06/12: Afebrile. Neurologically stable and unchanged. Noted sodium 135. Adding sodium chloride tablets 1 today. Not on free water.. Tolerating tube feeds at goal 45 cc an hour. 06/13: No improvement in neurological function. 06/14: No improvement. Fluid balance correct. Gas exchange acceptable. 06/15: No improvement. Obtunded and unresponsive. 06/16: no improvements in mental status. KUB overnight with dilated small bowel loops. given methylnaltrexone and erythromycin. today abdomen is soft and tolerating tube feeds. 06/17: tolerated t-piece x 6 hours yesterday. rested on cpap overnight. no changes in encephalopathy. 06/18: Currently on ventilator overnight. Multiple bowel movements. Thick yellow secretions noted in ventilator circuit. Opens eyes. 06/19: Afebrile. Tolerating stretcher chair yesterday on PSV. Tolerating tube feeding. Neurologically unchanged. 06/20: Afebrile. Resting in bed in no acute distress in sitting position. Currently on ventilator set sitting. Tolerated stretcher chair/PSV trial 6 hours yesterday. Neurologically unchanged. 06/21: Tmax 100.8. Patient with copious thick yellow secretions. Tolerating tube feeds. Positive bowel movement. Lasted only 1 hour PSV yesterday 06/22: Tmax 99.9. Continues to have thick secretions. Tolerating tube feeding. Positive BM. 06/23: Afebrile. Continues to have thick tracheal secretions from tracheostomy site. Tolerating tube feeding. 3 bowels movements. Opens eyes to stimulation. Stares at you but does not follow commands. 06/24: Remains encephalopathic, on mechanical ventilation via tracheostomy. Tolerating PEG feeds 06/25: Remains encephalopathic on mechanical ventilation. Tolerated C Pap +5 with pressure support +10 all day yesterday. Tolerating PEG feeds. 06/26: No improvement.Vent dependent still. 06/27: Remains encephalopathic, on mech vent via trach. Daily CPAP trials. 06/28: Unable to wean from ventilator. 06/29: Neurologically unchanged. Remains on mechanical ventilation. Daily C Pap trials ongoing. 06/30: Remains encephalopathic. On C Pap overnight. Tolerating tube feeds. 07/01: No change in neurologic status. On mechanical ventilation via tracheostomy. Tolerating tube feeds. 07/02: Remains encephalopathic. No change in neurologic status. On mechanical ventilation via tracheostomy. Daily C Pap trials ongoing. 07/03: Occasional spontaneous eye opening however remains encephalopathic. On mechanical ventilation via tracheostomy. 07/04: Tmax 99.2. Multiple bowel movements overnight. Tolerating tube feeds. On T piece trial at 5 L since noon yesterday. Otherwise neurologically unchanged. Daughter encouraged by movement of left leg. 07/05: Currently resting in bed on T piece 36 hours. Tolerates chair. No changes neurologically. Positive BM's. Tolerating her tube feeding. 07/06: Continue T-piece trials, if tolerated consider transfer to floor. 07/07: Extended T-piece trial. Plan transfer to floor. 07/09: Patient is experiencing apnea episodes and had to be placed back on higher FiO2.. Hold transfer. 07/10: X-ray left hip shows good anatomic alignment. Still requiring elevated FiO2. 07/11: Prealbumin 20, nutritional support is adequate and status is stable. No neurological improvement. 07/12: No improvement in neurological function. Continued acceptable respiratory effort. 07/13: No change. 10/03/17 Dr. Rizo notified reinforcing steel placer that patient would be transferring to ICU. Patient is known to [facility] service. She was originally admitted 04/20/17 after a fall with hip fracture resulting in ORIF 04/21. Postoperatively, she developed large R MCA stroke with midline shift. Her neurologic condition remained poor and she underwent trach 05/15/17 and PEG 05/16/17. She was eventually transitioned to Tpiece and transferred to floor. She has suffered from multiple infectious complications due to her persistent bedfast and trach dependent state. 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 She has been on trach collar with worsening hypoxemia therefore she is transferred to [facility]. CXR from yesterday demonstrates bilateral pulmonary infiltrates. She has also had hyperkalemia today up to 6.7 which has been treated with kayexalate, down to 6. 2: improvement in air space disease with diuresis and bronch yesterday. no overall improvements in chronic poor prognosis. unlikely to survive this hospital stay. daughter has poor insight into the gravity of her mother's medical condition. she will not recover meaningfully. 10/05: continuing to clinically improve from a respiratory standpoint. no improvements in overall poor function. off vent on t-piece today. can likely transition out of ICU tomorrow. 10/06 No events overnight. Remains on ventilator via trach. Afebrile. 10/07 No events overnight. Afebrile. 10/08 Patient is on ventilator via trach. afebrile. 10/09 No events overnight. Tolerating tube feeds. Afebrile. 10/10 Patient is on ventilators via trach. 10/11: Nursing reported patient intermittently follow commands today. BUN slightly elevated. Patient tolerating tube feeding 10/12: The patient tolerated CPAP for approximately 6 hours yesterday. No acute changes overnight. No neurological change in status. 10/13 No events overnight. Afebrile. 10/14 Patient remains on ventilator via trach. Afebrile. Didn't tolerate CPAP trials earlier today. 10/15: no changes. patient remains on the ventilator. unable to wean. 10/16: no improvements. no changes. PSV trials ongoing, not ready for SBT. 10/17 No events overnight. On CPAP. 10/18 Patient remains on ventilator via trach tolerating CPAP trials. 10/19 No events overnight. afebrile. WBC is trending down. 10/20 Patient is on CPAP with PS 15, PEEP:5 Awake, afebrile. 10/21, 10/22, 10/23: Remains on mechanical ventilation via tracheostomy. 10/24 No events overnight. On CPAP with PS 12, PEEP:5 and FIO2 30%,. 10/25 Labs pending. Afebrile. 10/26: Afebrile. Bradycardic. No new issues past 24 hours. Appears comfortable on Vent. 10/27 No events overnight. Afebrile. On TP's with 50% FIO2. 10/28 Patient remains on TP's with 50% FIO2. Afebrile. 10/29: Remains on 35% TP. Had been on T piece without going back on the vent for last 3 days Subjective RECONSULT NOTE: 01/23: reconsulted for patient with worsening acute kidney injury in the setting of acute on chronic illness. Discussed case extensively with palliative care and with Dr. David. Although we must honor the daughter' s wishes to continue aggressive medical care, renal replacement therapy and placement of dialysis catheter access is a medical procedure that comes with potential risks and benefits, and as healthcare providers, we are obligated to assess the relative risks, benefits, and alternative therapies that exist in our efforts to first do no harm and provide medically appropriate therapy to patients. Certainly in this patient who has been ill for months now, adding additional central access for renal replacement therapy is not without risk, which includes bleeding risk, damage to surrounding vascular structures given multiple prior central access catheters, and in this patient with already 6 different active infections at this point, a heightened infection risk for additional blood stream infections and catheter related infections. Additional risks for renal replacement therapy would include electrolyte shifts and intravascular volume shifts leading to hemodynamic instability and worsening of her other end-organ dysfunction. Alternatives would be peritoneal dialysis, which is not appropriate in this setting, or ongoing diuresis efforts, which we are actively doing. I cannot find any overall meaningful benefit that comes from renal replacement therapy in this patient at this present time. The patient is encephalopathic and has had no meaningful neurologic recovery for months. Renal replacement therapy would not increase the likelihood that she regains any further amount of meaningful neurologic function. Renal replacement therapy does not address or improve any of the 6 current infections she is being treated for (and potentially worsens them). Although it may improve her electrolyte and fluid balance, neither fluids nor electrolytes change her overall prognosis, which is poor for any clinical improvement. Furthermore, then [place] [employer] have published guidelines in the Journal of the [place] [employer] from 2010 (second edition) which gives us guidance, entitled "Clinical Practice Guideline on Shared Decision-Making in the Appropriate Initiation of and Withdrawal from Dialysis." In these published guidelines, it states in Recommendation No. 5: "Making a decision to not initiate or to discontinue dialysis", "If appropriate, forgo (withhold initiating or withdraw ongoing) dialysis for patients with MIRIAM, CKD< or ESRD in certain well-defined situations." The 4th of these situations is: "Patients with irreversible, profound neurological impairment such that they lack signs of thought, sensation , purposeful behavior, and awareness of self and environment." Certainly, this patient has such profound neurological impairment, and while I cannot confirm that she truly lacks sensation (she is too encephalopathic to tell with definity what her ability to process sensation and pain is), she certainly lacks signs of thought, purposeful behavior, and awareness of self and environment. Taken together, it is my medical opinion that the patient has not met any criteria that suggests that the benefits of initiating the procedure of renal replacement therapy outweigh the risks, and the ASN/RPA has given guidelines suggesting that this patient likely falls within a group for which initiation of renal replacement therapy is contra-indicated, and thus I do not believe renal replacement therapy is indicated in this patient at this time. I believe that it provides the real risk of harm without meaningful benefit. I will not initiate renal replacement therapy at this time. I have discussed the case with Dr. David who agrees with my assessment, and also with Dr. Minaya who has agreed to convene the Bioethics committee to review the case. I welcome their thoughtful input, as we move forward with attempting to provide the best care and therapy which is appropriate for Ms. Hein. The patient is encephalopathic and unresponsive and cannot provide any history or review of systems. 01/24: Patient well known to me. Today she is struggling with respirations and not synchronized with the ventilator. TV reduced to prevent excessive peak pressure. Patient is continually grimacing and appears to be in pain, associated with any movement or ventilator bucking. We will initiated some sedation and analgesia to comfort the patient. Objective Vital Signs Date Time Temp Pulse Resp B/P (MAP) Pulse Ox O2 Delivery O2 Flow Rate FiO2 01/24/18 08:00 100.2 40 22 115/56 (75) 99 01/24/18 07:58 60 Intake and Output 01/24/18 01/24/18 01/24/18 07:59 15:59 23:59 Intake Total 840 ml Output Total 50 ml Balance 790 ml Result Diagram: 01/23/18 1051 01/23/18 1051 Imaging Last Impressions Chest X-Ray 10/27/17 0600 Signed Impressions: Service Date/Time: Friday, October 27, 2017 04:26 - CONCLUSION: 1. Mild positive fluid balance which appears slightly more prominent likely due to the lower lung volumes. 2. Mild bibasilar airspace disease, presumably atelectasis. Alejo De La Vega MD Abdomen X-Ray 10/10/17 0000 Signed Impressions: Service Date/Time: Tuesday, October 10, 2017 11:35 - CONCLUSION: No dilated bowel loops. Benja Ramsey MD Thoracentesis 08/05/17 1535 Signed Impressions: Service Date/Time: Saturday, August 05, 2017 16:08 - CONCLUSION: Uncomplicated CT-guided thoracentesis. Sage Adler MD Chest Ultrasound 08/02/17 0000 Signed Impressions: Service Date/Time: Tuesday, August 01, 2017 22:06 - CONCLUSION: 1. Moderate right pleural effusion, as above. Alejo De La Vega MD Hip and Pelvis X-Ray 07/09/17 0000 Signed Impressions: Service Date/Time: Sunday, July 09, 2017 14:04 - CONCLUSION: Anatomic alignment. Ricardo Middleton MD FACR Liver Ultrasound 06/19/17 0000 Signed Impressions: Service Date/Time: June 13:20 - CONCLUSION: 1. Mildly increased echotexture of the liver characteristic of hepatic steatosis. 2. Gallbladder sludge. Obdulio Sam MD Head CT 05/15/17 0000 Signed Impressions: Service Date/Time: May 19:59 - CONCLUSION: 1. 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 2. No bleed or new/acute infarct. Obdulio Simms MD Gall Bladder Ultrasound 05/08/17 0000 Signed Impressions: Service Date/Time: May 08:23 - CONCLUSION: Focally unremarkable appearance of the gallbladder Obdulio Chun MD Abdomen/Pelvis CT 05/07/17 0000 Signed Impressions: Service Date/Time: Sunday, May 07, 2017 13:23 - CONCLUSION: 1. Large left pneumothorax. 2. Bilateral lower lobe consolidation and bilateral moderate size pleural effusions. 3. Significant soft tissue thickening of the right lateral chest wall and left gluteus muscle. 4. Mild ascites. The findings were called to Dr. Carney. Deangelo Zamora MD Chest CT 04/30/17 0000 Signed Impressions: Service Date/Time: Sunday, April 30, 2017 09:20 - CONCLUSION: 1. Bilateral pulmonary infiltrates more pronounced within the lower lobes with tiny bilateral pleural effusions. Material seen filling the lower lobe bronchi bilaterally either related to purulent material or perhaps mucus plugging. Deangelo Wren Jr., MD Carotid Artery Ultrasound 04/24/17 0000 Signed Impressions: Service Date/Time: April 09:45 - CONCLUSION: 1. No hemodynamically significant carotid artery stenosis. Arnie Middleton MD Hip X-Ray 04/21/17 0000 Signed Impressions: Service Date/Time: Friday, April 21, 2017 11:36 - CONCLUSION: Fluoroscopic images during placement of intramedullary siomara left femur. Benja Ramsey MD Procedures PEG tube trach 05/15/17 and PEG 05/16/17 Objective Remarks GENERAL: cachectic, edematous elderly female, lying in bed on vent via tracheostomy. HEAD: Atraumatic. Normocephalic. no thrush. NECK: 8.[address] Trachea midline. CARDIOVASCULAR: Bradycardic sinus rate 62, RR. S1, S2. No S4. No M/C/G/R RESPIRATORY: on full vent support. PRVC. equal chest rise. Few mobile secretions. GASTROINTESTINAL: Abdomen soft, non-tender, nondistended. PEG in place site benign appearing. BS few., no guarding. MUSCULOSKELETAL: Extremities without significant peripheral edema. No obvious deformities. 2+ edema. NEUROLOGICAL: Eyes open spontaneously, L gaze preference. R side flaccid. Grimaces to any stimulation. A/P Assessment and Plan Assessment: 77yF with catastrophic MCA CVA with permanent devastating neurologic injury who has had a prolonged hospitalization with multiple healthcare associated conditions including now 6 active infections, pressure ulcers, and now full ventilator dependent. She has a terminal prognosis and will not survive this hospitalization. Despite months of counseling by multiple physicians spread amongst multiple medical specialties, her daughter and healthcare surrogate continues to urge for aggressive therapy and is convinced her mother will make a complete recovery. Now with acute kidney injury which is actively worsening despite aggressive medical therapy. As per the above discussion, it is not medically appropriate to pursue renal replacement therapy in this patient in her current clinical condition. We will await Bioethics recommendation and feedback. in the interim, will continue with the current medical plan of care. Highly complex patient with multiple ongoing medical issues. She appears to be actively dying at this point. Neuro/Psych: Left MCA CVA - 5.5 mm of [id number] subfalcine herniation, diagnosed 04/24. Persistent right-sided hemiparesis. Also prior h/o Stroke Continue Aspirin 325 mg by tube daily. Stroke occurred 04/24/17. Patient was not a candidate for thrombolysis per discussion with neurology and radiology at that time. Repeat head CT 05/15 showed slight improvement in the midline shift now 5.5 mm and mass effect Neurosurgery consulted 04/30- Dr. López, recommended conservative management, now signed off. Neurology Dr. Malave has followed previously, signed off. Acetaminophen 650 mg PEG q6h prn fever. Cardiovascular: Essential Hypertension Chronic systolic and diastolic heart failure Amlodipine 10 mg po daily, Doxazosin 1 mg peg daily, hydralazine 10 mg per per peg q8 hours. Clonidine 0.1 mg q6h prn SBP >160 Echo 10/06/17 LVSF is severely reduced with an estimated ejection fraction in the range of 25-30%. Doppler parameters are consistent with impaired left ventricular relaxation (grade 1 diastolic dysfunction). There is diffuse global hypokinesis with distinct regional WMA. Normal LV size. Wall thickness is normal. Mid anterolateral, apical, and inferoapical akinesis. Pulmonary: Chronic Tracheostomy Recurrent episode Acute hypoxemic respiratory failure Acute hypoxic respiratory failure - aspiration possible HCAP - previous episode resolved. Large left pneumothorax status post #10 Thai chest tube 05/07 - resolved.Chest tube d/c'd 05/12/17 R pleural effusion - continue full vent support. no SBTs given her volume overload. Ipratropium/albuterol aerosols every 6 hours with albuterol aerosols every 2 hours prn dyspnea Pulm toilet, [facility] Pulmonology is following, Dr. Rizo GI/liver: Elevated transaminases, resolved Severe acute protein calorie malnutrition Small bowel ileus- resolved Hepatitis C antibody positive with negative genotype/viral load Hepatic steatosis Currently on PEG tube feeding with Glucerna 1.5 goal 45 cc an hour per nutrition rec 10/20/17. KUB abdomen 10/10: No dilated bowel loops Beneprotein tid prn constipation. Lansoprazole 30 mg daily for GI regimen Endocrine: Diabetes mellitus SSI Novulin R High-dose every 6 hours, Levemir insulin 8u Q12 /Renal/FEN: Hypernatremia, resolved Monitor renal function. I/O's, electrolytes replacement as needed. Deteriorating renal function, now anuric. Heme: Chronic Rivaroxaban use prior to admission Leukocytosis Normocytic anemia Follow CBC and coags. ID: Serratia Marcescens VAP E. 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 Serratia/staph aureus pneumonia - resolved. C glabrata UTI - recurrent Citrobacter UTI - resolved. Serratia/MSSA sputum VAP recurrent Current relevant cultures: 09/25/17 -sputum culture - Pseudomonas aeruginosa, multidrug resistant ( including Zerbaxa and Avycaz resistance). s/p Colistin nebs(09/30- 10/21) Per ID sputum cx from 10/18: (Serratia Marcescens) urine from 10/18 - (E. Faecium VRE) Lactobacillus 1 tab bid Prior cultures: Urine culture 04/26/17 sofie glabrata Blood culture 04/29/17 1 out of 4 bottles staph aureus Sputum culture 04/30/17 MSSA and Serratia. urine 05/07-> Serratia, treated. Urine 05/25: Citrobacter MSK: Left Intertroch Hip Fx s/p IMN 04/21/17. Vitamin D deficiency Sacral decubitus ulcer, Previously stage III, healing. Nonstageable pressure wound MTP L foot - Podiatry evaluated 10/23 and recommended against debridement because it would likely leave joint capsule exposed with rapid progression to osteomyelitis. Wound care following. Continue calcium vitamin D 250/125 one tablet 3x a day and cholecalciferol 5000 units daily. PT/OT evaluate and treat Cleanse buttock area with incontinence barrier wipes and apply Calazime barrier cream BID and PRN and leave open to air Apply skin prep to L medial foot DTI Continue to turn patient every 2 hours or PRN for comfort. Please use one UltraSorb for moisture. Please use flat sheet for repositioning on specialty surface. Continue Beneprotein one packet 3x a day prn Prophylaxis: SCDs. Heparin 5000 subcutaneous q8 hours -> q12h GI - Lansoprazole 30 mg by PEG tube daily ACCESS: PIV. Overall impression: Patient has deteriorated over the past 24 hours with worsening renal function and now anuria. She is too unstable to tolerate dialysis at this point and too unstable to lay supine for insertion of HD cath. is imminent. Elevated airway pressures will require some sedation and analgesia to accomplish ventilator synchrony. She grimaces continually to any stimulation. Charles Pedraza MD January 24, 2018 13:33
[2018-01-25] MEDS: LORazepam 2 MG/ML VIAL IV PUSH SCH ×4 (00:12→06:00)
[2018-01-25] MEDS: MORPHINE SULFATE 4 MG/ML INJ IV PUSH SCH ×4 (00:13→06:00)
[2018-01-25 01:41] VITALS: O2SAT 93
[2018-01-25 05:39] VITALS: O2SAT 0
--- NOTE | 2018-01-25 07:16 | DEATH SUM ---
Summary Demographics Date Pronounced : January 25, 2018 Time Of : 07:01 Preliminary Cause of : Multi Organ Failure Charles Pedraza MD January 25, 2018 07:16
--- NOTE | 2018-01-25 07:35 | HHI.DS ---
Discharge Summary Admission Date Apr 20, 2017 at 10:46 Discharge Date: January 25, 2018 Admitting Diagnosis Massive left middle cerebral artery ischemic stroke. (1) Acute respiratory failure ICD Code: J96.00 - Acute respiratory failure, unspecified whether with hypoxia or hypercapnia Diagnosis: Principal Status: Resolved (2) Acute ischemic left middle cerebral artery (MCA) stroke ICD Code: I63.512 - Cerebral infarction due to unspecified occlusion or stenosis of left middle cerebral artery Diagnosis: Principal Status: Acute (3) MIRIAM (acute kidney injury) ICD Code: N17.9 - Acute kidney failure, unspecified Diagnosis: Secondary (4) Right hemiplegia ICD Code: G81.91 - Hemiplegia, unspecified affecting right dominant side Diagnosis: Secondary Status: Acute (5) Fracture of left hip ICD Code: S72.002A - Fracture of unspecified part of neck of left femur, initial encounter for closed fracture Diagnosis: Secondary (6) Sacral decubitus ulcer ICD Code: L89.159 - Pressure ulcer of sacral region, unspecified stage Diagnosis: Secondary Status: Chronic (7) HCAP (healthcare-associated pneumonia) ICD Code: J18.9 - Pneumonia, unspecified organism Diagnosis: Secondary Status: Resolved (8) 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 ICD Code: A49.8 - Other bacterial infections of unspecified site; Z16.24 - Resistance to multiple antibiotics Diagnosis: Secondary Status: Acute (9) Chronic respiratory failure ICD Code: J96.10 - Chronic respiratory failure, unspecified whether with hypoxia or hypercapnia Diagnosis: Secondary Status: Chronic (10) Shingles ICD Code: B02.9 - Zoster without complications Diagnosis: Secondary Status: Acute Procedures PEG tube trach 05/15/17 and PEG 05/16/17 CBC/BMP: 01/23/18 1051 01/23/18 1051 Significant Findings Laboratory Tests Test 01/22/18 10:11 01/23/18 10:51 Blood Urea Nitrogen 89 MG/DL (7-18) 98 MG/DL (7-18) Creatinine 2.64 MG/DL (0.50-1.00) 3.12 MG/DL (0.50-1.00) Random Glucose 136 MG/DL (74-106) 177 MG/DL (74-106) Albumin 2.6 GM/DL (3.4-5.0) 2.2 GM/DL (3.4-5.0) Phosphorus Level 1.8 MG/DL (2.5-4.9) 2.4 MG/DL (2.5-4.9) Sodium Level 134 MEQ/L (136-145) 133 MEQ/L (136-145) Carbon Dioxide Level 17.8 MEQ/L (21.0-32.0) 18.1 MEQ/L (21.0-32.0) Estimat Glomerular Filtration Rate 18 ML/MIN (>89) 15 ML/MIN (>89) White Blood Count 12.9 TH/MM3 (4.0-11.0) Red Blood Count 2.54 MIL/MM3 (4.00-5.30) Hemoglobin 7.9 GM/DL (11.6-15.3) Hematocrit 24.5 % (35.0-46.0) Neutrophils (%) (Auto) 76.8 % (16.0-70.0) Neutrophils # (Auto) 9.9 TH/MM3 (1.8-7.7) Stomatocytes 1+ (NORMAL) Imaging Head CT, MRI -> Large left hemispheric ischemic stroke PE at Discharge . Transfer Summary 76 y/o woman with advanced dementia ([place] her cloths off, confused and disoriented) found down at home covered in feces and in DKA on 04/20/17. Left hip was fractured and she was brought to ED and underwent ORIF left hip. Recovery from hip surgery was initially uneventful though patient remained confused and exhibited advanced dementia. Suddenly on she became unresponsive and imaging revealed a large, acute, dominant hemisphere (left) ischemic stroke. Remained unresponsive after stroke and ventilator dependent. Finally weaned from ventilator on 07/06/17 and was able to sustain an acceptable respiratory effort through tracheostomy. Moved left arm and hand spontaneously but not to command. Remained unresponsive. The patient was transitioned to the [facility] for ongoing care. Most recently she has developed renal failure and hypotension with bradycardia. We considered hemodialysis but all consultants including myself felt that the patient was too unstable to tolerate catheter placement or dialysis. Her only family (daughter) made her DNR status roughly 48 hours ago. She continued to decline and became asystolic early Friday morning January 25. She was pronounced of cardiac standstill by me at 0701 hours on 01/25/18. Hospital Course 04/24: 76-year-old female with a medical history significant for prior stroke, diabetes mellitus who was admitted with DKA and a hip fracture for which she underwent ORIF on 04/21. Patient developed altered mental status and was last noted to be okay around 5:30 AM. Subsequently there was a change in her mental status and she was noted to not be moving her right side for which stroke alert was called. Head CT showed large left MCA territory ischemic infarct with edema. Patient was transferred to the ICU by family medicine service in the critical care consult was requested. I evaluated the patient following arrival to the ICU. At that time she was laying in bed with her eyes open however not following commands and had a dense right hemiplegia. Patient was also evaluated by Dr. Malave from neurology. [facility] further discussed current event with patient's daughter following her arrival to the ICU. Per the daughter patient has been living with her since her stroke in 2014 and does ambulate however has been having problems with memory and incontinence as well as gait difficulties. She does not feel patient would want intubation or tracheostomy or PEG tube. 04/25: Patient remains encephalopathic, awake though not following commands consistently. Dense right hemiplegia persists. Appears to be awake enough to protect airway currently. Patient's daughter rescinded DNR and made a full code last evening. 04/26: Remains encephalopathic, not following commands. On Dobbhoff for tube feeds at 30 cc per hour. Had urinary retention and drained 2 L of urine after placing Moser catheter today. CT head done this morning with large left MCA territory infarct with left to right midline shift and significant cerebral edema. Hyperglycemia noted. Patient given mannitol earlier for increasing cerebral edema. 04/27: Remains encephalopathic, not following commands. On Dobbhoff tube feeds at 30 cc per hour. When into A. fib with RVR last night which responded with Lopressor 5 mg IV 1 dose. 04/28: Remains encephalopathic, arousable, not following commands. Moves left upper extremity spontaneously. Tolerating Dobbhoff tube feeds. Remains on nasal cannula. 04/29: Encephalopathic, eyes be arousable, moves left upper extremity spontaneously and occasionally opens eyes. Dense right hemiplegia and aphasia persists. On nasal cannula. Dobbhoff tube feeds being advanced. Patient was transfused 1 unit PRBCs yesterday. Urine culture with yeast from yesterday for which fluconazole being started. Had brief run of A. fib with RVR which improved with Lopressor IV, currently in sinus rhythm. 04/30: Worsening hypoxemic respiratory failure, currently on partial nonrebreather. Remains lethargic. WBC count increased from 14.6 today 20.7. Chest x-ray shows bilateral worsening infiltrates and small pleural effusions. Sodium 154, weight up by 8 KG. Albumin 1 mg Bumex 1. Also one dose of albumin. Remains in sinus tachycardia. Tmax 101.3 05/01: Patient was intubated yesterday for lack of airway protection, and severe hypoxemic respiratory failure from aspiration pneumonia involving multiple lobes. Patient is on the vent lethargic, no spontaneous eye opening. Chest x- ray remains unchanged. Remains intermittently febrile Tmax 101.3. WBC count improving 05/02: Remains critically ill with no improvement in mental status. Spiking fever of 101.7. Blood culture and sputum culture with staph aureus sputum also growing GNR, WBC count 22,000 now indicating worsening sepsis. Daughter still requesting aggressive care. Palliative care is following 05/03: S/P large area dominant hemisphere CVA. No neurological improvement. Now with pneumonia (infiltrate, fever, leukocytosis) and appropriate abx coverage. She will have a hard time surviving the hip fx, CVA, and pneumonia. Palliative Care needs to be a mainstay of our plan. 05/04: No improvement in neuro status. Sputum C&S allows us to narrow abx coverage to levaquin alone. Lungs remain quite congested. Enteral nutrition tolerated. 05/05: No improvement in neuro status. Moves left arm spontaneously. Flaccid right side. Unresponsive. Persistent mild hypoglycemia - will cut Levemir 50%. Abdomen more distended, check KUB. 05/06: CT head with massive left MCA infarction and > 1 cm shift in right handed woman. She opens eyes, does not track. 05/07: Patient open eyes. Attempts to respond. Greenlandic speaking. Tolerating tube feeds. Positive bowel movement. Volume overloaded. 05/08: Tmax 99.4. Potassium being replaced. Ultrasound gallbladder currently pending. Transaminases are trending downward. Gently diurese. 05/09: Alk phos decreasing. Remains with good urine output. Neurological status not improving. 05/10: Fixed neuro deficit unchanged. Profound CVA. 05/11: Appears to track with eyes today. No improvement in motor function. Remains very edematous, diuretics doubled. 05/12: Continued thick secretions. Afebrile, leukocytosis resolved. 05/13: CT head with completed left MCA stroke, persistent edema and 5 mm shift away. Does not last long on SBTs - major decision now is trach/PEG. 05/14: Daughter has decided to proceed with trach and PEG. I have been pessimistic with her about chances for a meaningful recovery. 05/15: Plan for trach today. No change in neuro status. Still ventilator dependent. 05/16: Trach completed. Await PEG and disposition. 05/17: PEG placed 05/16. Start TFs today after nutrition consult. Work to place patient. 05/18: No improvement. Does open eyes, no focus or tracking. Completed large dominant (left) hemisphere CVA in right handed woman with severe deficit. Medicaid pending status, [facility] is following. 05/19: no improvements in neuro exam. ready for LTAC. will d/c moser and rectal tubes. 05/20: no changes or improvements. very difficult placement due to patient not [place] citizen. 05/21: no improvements. resting on vent overnight due to distress. 05/22: no neurologic changes. no improvements. attempted T-piece which failed after 10 minutes. 05/23: no improvements. poor prognosis. poor neuro exam. still failing weaning trials. 05/24: no improvements or changes. still failing t-piece trials. 05/25: No acute changes of improvement overnight. Failed CPAP due to apnea, tried again currently tolerating. Neurological exam unchanged. 05/26: No improvement in neurological function. 05/27: Patient has required Moser catheter because of breakdown of skin on upper thighs and groin. Urine has become infected, will treat. 05/28: Some drainage from around trach (placed 2 weeks ago). Will change out trach tube and inspect neck wound. I&O straight cath q6h order entered 05/17. 05/29: No improvement, remains obtunded. Failed CPAP trials yesterday and again today due to apnea. Moser placed due to persistent urinary retention 05/30: Obtunded, unresponsive. Failed SBTs, remains ventilator dependent. 05/31: Patient continues to fail SBT failed yesterday due to apnea. Neuro exam remains unchanged. 06/01: No acute changes overnight, 06/02: no changes. ekg done overnight for ? EKG changes seen on telemetry which were not visualized on EKG. 06/03: no improvements or changes. had long conversation with daughter yesterday. only facility which would accept patient is in [place] and daughter is refusing to allow patient to go there because it is "too far away." Daughter continues to push for aggressive care despite no improvements, and resistant to Hospice. Patient does not need acute inpatient therapy but lacks funding for appropriate disposition. 06/04: No acute events overnight, failed SBT due to apnea. 06/05: No acute events, continues to fail spontaneous breathing trials. Unable to wean 06/06 Currently tolerating CPAP. Will attempt TP today up to 4 hours. No acute events overnight 06/07: Tolerating trach collar/T-piece. Transfer soon. 06/08: Awaiting transfer. 06/09: Remains ventilator dependent. No improvement in neurological function. 06/10: No improvement. Daughter is not attending preplanned meetings to discuss disposition 06/12: Afebrile. Neurologically stable and unchanged. Noted sodium 135. Adding sodium chloride tablets 1 today. Not on free water.. Tolerating tube feeds at goal 45 cc an hour. 06/13: No improvement in neurological function. 06/14: No improvement. Fluid balance correct. Gas exchange acceptable. 06/15: No improvement. Obtunded and unresponsive. 06/16: no improvements in mental status. KUB overnight with dilated small bowel loops. given methylnaltrexone and erythromycin. today abdomen is soft and tolerating tube feeds. 06/17: tolerated t-piece x 6 hours yesterday. rested on cpap overnight. no changes in encephalopathy. 06/18: Currently on ventilator overnight. Multiple bowel movements. Thick yellow secretions noted in ventilator circuit. Opens eyes. 06/19: Afebrile. Tolerating stretcher chair yesterday on PSV. Tolerating tube feeding. Neurologically unchanged. 06/20: Afebrile. Resting in bed in no acute distress in sitting position. Currently on ventilator set sitting. Tolerated stretcher chair/PSV trial 6 hours yesterday. Neurologically unchanged. 06/21: Tmax 100.8. Patient with copious thick yellow secretions. Tolerating tube feeds. Positive bowel movement. Lasted only 1 hour PSV yesterday 06/22: Tmax 99.9. Continues to have thick secretions. Tolerating tube feeding. Positive BM. 06/23: Afebrile. Continues to have thick tracheal secretions from tracheostomy site. Tolerating tube feeding. 3 bowels movements. Opens eyes to stimulation. Stares at you but does not follow commands. 06/24: Remains encephalopathic, on mechanical ventilation via tracheostomy. Tolerating PEG feeds 06/25: Remains encephalopathic on mechanical ventilation. Tolerated C Pap +5 with pressure support +10 all day yesterday. Tolerating PEG feeds. 06/26: No improvement.Vent dependent still. 06/27: Remains encephalopathic[facility] Daily CPAP trials. 06/28: Unable to wean from ventilator. 06/29: Neurologically unchanged. Remains on mechanical ventilation. Daily C Pap trials ongoing. 06/30: Remains encephalopathic. On C Pap overnight. Tolerating tube feeds. 07/01: No change in neurologic status. On mechanical ventilation via tracheostomy. Tolerating tube feeds. 07/02: Remains encephalopathic. No change in neurologic status. On mechanical ventilation via tracheostomy. Daily C Pap trials ongoing. 07/03: Occasional spontaneous eye opening however remains encephalopathic. On mechanical ventilation via tracheostomy. 07/04: Tmax 99.2. Multiple bowel movements overnight. Tolerating tube feeds. On T piece trial at 5 L since noon yesterday. Otherwise neurologically unchanged. Daughter encouraged by movement of left leg. 07/05: Currently resting in bed on T piece 36 hours. Tolerates chair. No changes neurologically. Positive BM's. Tolerating her tube feeding. 07/06: Continue T-piece trials, if tolerated consider transfer to floor. 07/07: Extended T-piece trial. Plan transfer to floor. 07/09: Patient is experiencing apnea episodes and had to be placed back on higher FiO2.. Hold transfer. 07/10: X-ray left hip shows good anatomic alignment. Still requiring elevated FiO2. 07/11: Prealbumin 20, nutritional support is adequate and status is stable. No neurological improvement. 07/12: No improvement in neurological function. Continued acceptable respiratory effort. 07/13: No change. 10/03/17 Dr. Rizo notified talk show host that patient would be transferring to ICU. Patient is known to [facility] service. She was originally admitted 04/20/17 after a fall with hip fracture resulting in ORIF 04/21. Postoperatively, she developed large R MCA stroke with midline shift. Her neurologic condition remained poor and she underwent trach 05/15/17 and PEG 05/16/17. She was eventually transitioned to Tpiece and transferred to floor. She has suffered from multiple infectious complications due to her persistent bedfast and trach dependent state. 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 She has been on trach collar with worsening hypoxemia therefore [place] [facility] [place]R from yesterday demonstrates bilateral pulmonary infiltrates. She has also had hyperkalemia today up to 6.7 which has been treated with kayexalate, down to 6. 2: improvement in air space disease with diuresis and bronch yesterday. no overall improvements in chronic poor prognosis. unlikely to survive this hospital stay. daughter has poor insight into the gravity of her mother's medical condition. she will not recover meaningfully. 10/05: continuing to clinically improve from a respiratory standpoint. no improvements in overall poor function. off vent on t-piece today. can likely transition out of ICU tomorrow. 10/06 No events overnight. Remains on ventilator via trach. Afebrile. 10/07 No events overnight. Afebrile. 10/08 Patient is on ventilator via trach. afebrile. 10/09 No events overnight. Tolerating tube feeds. Afebrile. 10/10 Patient is on ventilators via trach. 10/11: Nursing reported patient intermittently follow commands today. BUN slightly elevated. Patient tolerating tube feeding 10/12: The patient tolerated CPAP for approximately 6 hours yesterday. No acute changes overnight. No neurological change in status. 10/13 No events overnight. Afebrile. 10/14 Patient remains on ventilator via trach. Afebrile. Didn't tolerate CPAP trials earlier today. 10/15: no changes. patient remains on the ventilator. unable to wean. 10/16: no improvements. no changes. PSV trials ongoing, not ready for SBT. 10/17 No events overnight. On CPAP. 10/18 Patient remains on ventilator via trach tolerating CPAP trials. 10/19 No events overnight. afebrile. WBC is trending down. 10/20 Patient is on CPAP with PS 15, PEEP:5 Awake, afebrile. 10/21, 10/22, 10/23: Remains on mechanical ventilation via tracheostomy. 10/24 No events overnight. On CPAP with PS 12, PEEP:5 and FIO2 30%,. 10/25 Labs pending. Afebrile. 10/26: Afebrile. Bradycardic. No new issues past 24 hours. Appears comfortable on Vent. 10/27 No events overnight. Afebrile. On TP's with 50% FIO2. 10/28 Patient remains on TP's with 50% FIO2. Afebrile. 10/29: Remains on 35% TP. Had been on T piece without going back on the vent for last 3 days 10/30/17 - 01/22/18: Patient has remain on T-piece with spontaneous respiratory effort and supplemental oxygen. She eventually developed pneumonia with resistant Pseudomonas and began to deteriorate in early December 2017. Initially renal insufficiency developed, followed by bradycardia and hypotension. She was then transferred back to the Dispute Specialist service. Dispute Specialist RECONSULT NOTE: 01/23: reconsulted for patient with worsening acute kidney injury in the setting of acute on chronic illness. Discussed case extensively with palliative care and with Dr. David. Although we must honor the daughter's wishes to continue aggressive medical care, renal replacement therapy and placement of dialysis catheter access is a medical procedure that comes with potential risks and benefits, and as healthcare providers, we are obligated to assess the relative risks, benefits, and alternative therapies that exist in our efforts to first do no harm and provide medically appropriate therapy to patients. Certainly in this patient who has been ill for months now , adding additional central access for renal replacement therapy is not without risk, which includes bleeding risk, damage to surrounding vascular structures given multiple prior central access catheters, and in this patient with already 6 different active infections at this point, a heightened infection risk for additional blood stream infections and catheter related infections. Additional risks for renal replacement therapy would include electrolyte shifts and intravascular volume shifts leading to hemodynamic instability and worsening of her other end-organ dysfunction. Alternatives would be peritoneal dialysis, which is not appropriate in this setting, or ongoing diuresis efforts, which we are actively doing. I cannot find any overall meaningful benefit that comes from renal replacement therapy in this patient at this present time. The patient is encephalopathic and has had no meaningful neurologic recovery for months. Renal replacement therapy would not increase the likelihood that she regains any further amount of meaningful neurologic function. Renal replacement therapy does not address or improve any of the 6 current infections she is being treated for (and potentially worsens them). Although it may improve her electrolyte and fluid balance, neither fluids nor electrolytes change her overall prognosis, which is poor for any clinical improvement. Furthermore, then [place] [employer] have published guidelines in the Journal of the [place] [employer] from 2010 (second edition) which gives us guidance, entitled "Clinical Practice Guideline on Shared Decision-Making in the Appropriate Initiation of and Withdrawal from Dialysis." In these published guidelines, it states in Recommendation No. 5: "Making a decision to not initiate or to discontinue dialysis", "If appropriate, forgo (withhold initiating or withdraw ongoing) dialysis for patients with MIRIAM, CKD< or ESRD in certain well-defined situations." The 4th of these situations is: "Patients with irreversible, profound neurological impairment such that they lack signs of thought, sensation , purposeful behavior, and awareness of self and environment." Certainly, this patient has such profound neurological impairment, and while I cannot confirm that she truly lacks sensation (she is too encephalopathic to tell with definity what her ability to process sensation and pain is), she certainly lacks signs of thought, purposeful behavior, and awareness of self and environment. Taken together, it is my medical opinion that the patient has not met any criteria that suggests that the benefits of initiating the procedure of renal replacement therapy outweigh the risks, and the ASN/RPA has given guidelines suggesting that this patient likely falls within a group for which initiation of renal replacement therapy is contra-indicated, and thus I do not believe renal replacement therapy is indicated in this patient at this time. I believe that it provides the real risk of harm without meaningful benefit. I will not initiate renal replacement therapy at this time. I have discussed the case with Dr. David who agrees with my assessment, and also with Dr. Minaya who has agreed to convene the Bioethics committee to review the case. I welcome their thoughtful input, as we move forward with attempting to provide the best care and therapy which is appropriate for Ms. Hein. The patient is encephalopathic and unresponsive and cannot provide any history or review of systems. 01/24: Patient well known to me. Today she is struggling with respirations and not synchronized with the ventilator. TV reduced to prevent excessive peak pressure. Patient is continually grimacing and appears to be in pain, associated with any movement or ventilator bucking. We will initiated some sedation and analgesia to comfort the patient. 01/25: Continued decline overnight. Remains anuric and poorly perfused. Bradycardia persists. Patient remains unresponsive, grossly edematous, and in circulatory shock. Dictation time for summary: 60 minutes Pt Condition on Discharge: Deteriorating Charles Pedraza MD January 25, 2018 07:34
== END 2018-01-25 07:01 | disposition expired | DRG 3 ==
LOC: NEDAMB 07:57 → NEDA 10:46 → HIMN 16:15 → N06A 04-23 01:45 → N03A 04-24 09:03 → N07A 07-12 01:36 → H4EN 09-29 11:30 → HIME 10-03 17:50 → H4EN 10-06 12:08 → HIMN 01-16 14:35 → H4EN 01-18 20:20 → UNDODISIN 01-25 07:01
PROVIDERS: ADMIT Internal Medicine Critical Care Medicine; ATTEND Internal Medicine Critical Care Medicine
PROC: 0QS736Z Reposition Left Upper Femur with Intramedullary Internal Fixation Device, Percutaneous Approach (ICD-10-PCS; principal; 2017-04-21 10:33)
PROC: 0T9B70Z Drainage of Bladder with Drainage Device, Via Natural or Artificial Opening (ICD-10-PCS; 2017-04-26)
PROC: 5A1955Z Respiratory Ventilation, Greater than 96 Consecutive Hours (ICD-10-PCS; 2017-04-30)
PROC: 0BH17EZ Insertion of Endotracheal Airway into Trachea, Via Natural or Artificial Opening (ICD-10-PCS; 2017-04-30)
PROC: 0W9B30Z Drainage of Left Pleural Cavity with Drainage Device, Percutaneous Approach (ICD-10-PCS; 2017-05-07)
PROC: 0B113F4 Bypass Trachea to Cutaneous with Tracheostomy Device, Percutaneous Approach (ICD-10-PCS; 2017-05-15)
PROC: 0BJ08ZZ Inspection of Tracheobronchial Tree, Via Natural or Artificial Opening Endoscopic (ICD-10-PCS; 2017-05-15)
PROC: 0DH63UZ Insertion of Feeding Device into Stomach, Percutaneous Approach (ICD-10-PCS; 2017-05-16)
PROC: 30233N1 Transfusion of Nonautologous Red Blood Cells into Peripheral Vein, Percutaneous Approach (ICD-10-PCS; 2017-05-28)
PROC: 0W993ZX Drainage of Right Pleural Cavity, Percutaneous Approach, Diagnostic (ICD-10-PCS; 2017-08-05)
PROC: 0BD68ZX Extraction of Right Lower Lobe Bronchus, Via Natural or Artificial Opening Endoscopic, Diagnostic (ICD-10-PCS; 2017-10-03)
PROC: 0BD58ZX Extraction of Right Middle Lobe Bronchus, Via Natural or Artificial Opening Endoscopic, Diagnostic (ICD-10-PCS; 2017-10-03)
PROC: 5A1945Z Respiratory Ventilation, 24-96 Consecutive Hours (ICD-10-PCS; 2017-12-20)
PROC: 0WCQ8ZZ Extirpation of Matter from Respiratory Tract, Via Natural or Artificial Opening Endoscopic (ICD-10-PCS; 2018-01-02)
DX: S72.142A Displaced intertrochanteric fracture of left femur, initial encounter for closed fracture (principal); G93.6 Cerebral edema; A41.01 Sepsis due to Methicillin susceptible Staphylococcus aureus; G93.5 Compression of brain; A41.52 Sepsis due to Pseudomonas; G93.40 Encephalopathy, unspecified; I63.512 Cerebral infarction due to unspecified occlusion or stenosis of left middle cerebral artery; J69.0 Pneumonitis due to inhalation of food and vomit; I50.43 Acute on chronic combined systolic (congestive) and diastolic (congestive) heart failure; J94.2 Hemothorax; E10.10 Type 1 diabetes mellitus with ketoacidosis without coma; J96.21 Acute and chronic respiratory failure with hypoxia; N17.0 Acute kidney failure with tubular necrosis; E43 Unspecified severe protein-calorie malnutrition; J15.211 Pneumonia due to Methicillin susceptible Staphylococcus aureus; J15.1 Pneumonia due to Pseudomonas; R65.20 Severe sepsis without septic shock; R47.01 Aphasia; G81.91 Hemiplegia, unspecified affecting right dominant side; J93.9 Pneumothorax, unspecified; Z99.11 Dependence on respirator [ventilator] status; N13.30 Unspecified hydronephrosis; J98.11 Atelectasis; T17.890A Other foreign object in other parts of respiratory tract causing asphyxiation, initial encounter; J95.851 Ventilator associated pneumonia; K56.7 Ileus, unspecified; E87.1 Hypo-osmolality and hyponatremia; E87.0 Hyperosmolality and hypernatremia; L97.528 Non-pressure chronic ulcer of other part of left foot with other specified severity; R18.8 Other ascites; T79.7XXA Traumatic subcutaneous emphysema, initial encounter; K52.1 Toxic gastroenteritis and colitis; B37.49 Other urogenital candidiasis; L89.153 Pressure ulcer of sacral region, stage 3; T83.518A Infection and inflammatory reaction due to other urinary catheter, initial encounter; R13.10 Dysphagia, unspecified; I25.5 Ischemic cardiomyopathy; F03.90 Unspecified dementia, unspecified severity, without behavioral disturbance, psychotic disturbance, mood disturbance, and anxiety; R32 Unspecified urinary incontinence; E55.9 Vitamin D deficiency, unspecified; K44.9 Diaphragmatic hernia without obstruction or gangrene; Z51.5 Encounter for palliative care; D64.9 Anemia, unspecified; R29.733 NIHSS score 33; R47.02 Dysphasia; Y84.6 Urinary catheterization as the cause of abnormal reaction of the patient, or of later complication, without mention of misadventure at the time of the procedure; Z16.19 Resistance to other specified beta lactam antibiotics; B19.20 Unspecified viral hepatitis C without hepatic coma; R00.1 Bradycardia, unspecified; Z16.24 Resistance to multiple antibiotics; Y95 Nosocomial condition; E87.5 Hyperkalemia; E87.6 Hypokalemia; I11.0 Hypertensive heart disease with heart failure; K76.0 Fatty (change of) liver, not elsewhere classified; Z78.1 Physical restraint status; I48.0 Paroxysmal atrial fibrillation; R15.9 Full incontinence of feces; R74.0 Nonspecific elevation of levels of transaminase and lactic acid dehydrogenase [LDH]; R79.89 Other specified abnormal findings of blood chemistry; D75.89 Other specified diseases of blood and blood-forming organs; E10.649 Type 1 diabetes mellitus with hypoglycemia without coma; E10.621 Type 1 diabetes mellitus with foot ulcer; E87.8 Other disorders of electrolyte and fluid balance, not elsewhere classified; J40 Bronchitis, not specified as acute or chronic; K81.9 Cholecystitis, unspecified; L89.151 Pressure ulcer of sacral region, stage 1; F41.9 Anxiety disorder, unspecified; R50.82 Postprocedural fever; R57.8 Other shock; I16.0 Hypertensive urgency; K60.2 Anal fissure, unspecified; Z66 Do not resuscitate; B02.9 Zoster without complications; Z79.899 Other long term (current) drug therapy; Z22.39 Carrier of other specified bacterial diseases; Z79.84 Long term (current) use of oral hypoglycemic drugs; Z91.81 History of falling; Z86.73 Personal history of transient ischemic attack (TIA), and cerebral infarction without residual deficits; W19.XXXA Unspecified fall, initial encounter; T36.95XA Adverse effect of unspecified systemic antibiotic, initial encounter; Y92.009 Unspecified place in unspecified non-institutional (private) residence as the place of occurrence of the external cause; Z74.01 Bed confinement status; Y84.8 Other medical procedures as the cause of abnormal reaction of the patient, or of later complication, without mention of misadventure at the time of the procedure
CPT/HCPCS: 31500; 31600; 31624; 32551; 32555; 36430; 36600; 70450; 70470; 71010; 71045; 71250; 71275; 73502; 74000; 74018; 74176; 74177; 76000; 76604; 76705; 76775; 76937; 80048; 80053; 80069; 80074; 80076; 80202; 81001; 82010; 82150; 82272; 82306; 82310; 82550; 82805; 82947; 82948; 82977; 83036; 83605; 83615; 83690; 83735; 83880; 83930; 84080; 84100; 84132; 84134; 84145; 84155; 84295; 84439; 84443; 84484; 85007; 85014; 85018; 85025; 85027; 85379; 85610; 85730; 86403; 86850; 86900; 86901; 86920; 87015; 87040; 87070; 87077; 87086; 87102; 87106; 87116; 87147; 87186; 87205; 87206; 87328; 87329; 87449; 87493; 87506; 87522; 87556; 87641; 87798; 87804; 87902; 93005; 93306; 93308; 93880; 93971; 94002; 94003; 94640; 94664; 94762; A7520; A7521; C1713; C1729; C9113; J0131; J0360; J0456; J0610; J0690; J0692; J0695; J0696; J1120; J1450; J1580; J1610; J1644; J1650; J1815; J1940; J1956; J2060; J2150; J2212; J2248; J2250; J2270; J2370; J2405; J2543; J2710; J2765; J3010; J3370; J3480; J7030; J7040; J7042; J7050; J7070; J7120; J7608; J7611; J7613; P9016; P9045; Q9967; S0142